=== PATIENT | female | born 1960 | race Caucasian/White ===

== ENCOUNTER 2018-05-18 18:23 | Emergency (ER) | payer BC, SELFPAY ==
[2018-05-18 18:27] VITALS: BP 167/97; PULSE 76; RESP 16; TEMP 36.8; O2SAT 98
--- NOTE | 2018-05-18 19:03 | W.ED.GENAD ---
Discharge Plan Disposition Patient Disposition: HOME Condition: Good Discharge Details Chief Complaint: EarProblem Clinical Impression: Acute serous otitis media, right ear Primary Care Provider: Ryann Thomas ED Provider: Tito Cabrera Home Meds and New Rx's Prescriptions: Continue budesonide-formoterol [Symbicort] 80-4.5 mcg/actuation HFA aerosol inhaler 2 puff Inhalation BID Qty: 3 RF: 11 albuterol sulfate [Ventolin HFA] 90 mcg/actuation HFA aerosol inhaler 2 puff IH Q4H PRN (Reason: shortness of breath or wheezing) Qty: 8.5 RF: 11 inhalational spacing device [Aerochamber MV] spacer .Route .MEDSUPPLY Qty: 1 RF: 0 nitroglycerin 0.4 mg tablet, sublingual 0.4 mg Sublingual PRN Qty: 25 RF: 2 mometasone 50 mcg/actuation spray,non-aerosol 2 spray KUMAR DAILY Qty: 17 RF: 11 acetaminophen [Tylenol] 325 MG tablet 650 mg PO Q4H PRN RF: 0 aspirin 325 MG tablet 325 mg PO DAILY RF: 0 CPAP RF: 0 lancets [OneTouch Delica Lancets] 1 EACH misc 1 ea Intradermal BID Qty: 200 RF: 4 blood sugar diagnostic [OneTouch Ultra Test] 1 EACH strip 1 strip Miscellaneous DAILY Qty: 100 RF: 3 escitalopram oxalate [Lexapro] 20 MG tablet 20 mg PO DAILY Qty: 90 RF: 4 simvastatin 10 MG tablet 10 mg PO DAILY Qty: 90 RF: 4 clopidogrel [Plavix] 75 MG tablet 75 mg PO DAILY Qty: 90 RF: 4 amlodipine 5 MG tablet 5 mg PO DAILY Qty: 90 RF: 4 glimepiride 1 MG tablet 1 mg PO BID Qty: 180 RF: 4 metformin 1,000 MG tablet 1,000 mg PO BID Qty: 180 RF: 4 Metoprolol Succinate 25 MG TAB.ER.24H 25 mg PO DAILY Qty: 90 RF: 4 albuterol sulfate [Proventil HFA] 200 PUFF HFA aerosol inhaler 2 puff Inhalation Q4H PRN PRNQty: 1 RF: 0 losartan [Cozaar] 100 MG tablet 100 mg PO DAILY Qty: 90 RF: 4 lorazepam 0.5 MG tablet 0.5 - 1 tab PO BID PRN Qty: 30 RF: 0 omeprazole 20 mg capsule,delayed release(DR/EC) 20 mg PO DAILY Qty: 90 RF: 0 trazodone 50 mg tablet 50 mg PO HS PRN Qty: 90 RF: 0 Discharge Instructions Instructions: Serous Otitis Media (ED) Additional Instructions: Please continue to use your nasal spray 2 sprays per nostril once daily to see if this helps your symptoms. You may continue to take acetaminophen [id number] as directed on packaging. Please return immediately for any significant worsening of your such as fever chills, significant increase in pain, or any other concerns he may have. Otherwise follow-up with your primary care provider if not improving over the next 1-2 weeks Referrals: Ryann Thomas NP [Primary Care Provider] - (As needed for reassessment in the next 1-2 weeks if not improving) Medical Decision Making Patient presenting the emergency department chief complaint of ear pain. Patient states for the past 3 weeks she has upper respiratory tract infectious type symptoms that are improving but has had ear pain for the entire time. Patient does state that she was seen by her primary care and was told that she did not have an ear infection. Couple days ago patient did state that she did crack 1 of her teeth but has a filling in it and states some mild dental discomfort but is mainly here for the ear pain. Patient denies any worsening cough, fever chills, any neurological symptoms. Physical exam is unremarkable except for partial fracture of tooth #30 and some right bulging TM with clear fluid present behind it but no loss of landmarks, no erythema, no significant purulent effusion. Findings are suggestive of serous otitis media and upon review of previous records that shows that patient was placed upon Flonase which she states she has not used because she thought if she did not have infection that she did not need the use this. Patient was encouraged to begin using Flonase and take other medication as prescribed and to follow-up with primary care provider for reassessment if not improving in the next 1-2 weeks. After discussion of diagnosis and plan of care patient is no further needs, questions, or concerns and states clear understanding to return to the emergency department for any worsening symptoms. HPI General Mode of arrival: ambulatory. Date/Time Provider Initiated Documentation: 05/18/18 18:30. Limitations to Documentation: no limitations. Information obtained by: patient and RN notes reviewed. History of Present Illness described as moderate, Quality is described as aching, and is localized to the right (ear). Patient started experiencing this week(s) (3) and it has been intermittent. No relieving factors improve symptom(s), No exacerbating factors reported . Patient notes no other symptoms.. Patient did receive the following treatments prior to arrival, none Related Data Home Medications Medication Instructions Recorded Confirmed Cpap 10/24/12 05/04/18 acetaminophen [Tylenol] 650 mg PO Q4H PRN tab-cap 10/24/12 05/18/18 aspirin 325 mg PO DAILY tab-cap 10/24/12 05/18/18 lancets [OneTouch Delica Lancets] #200 ea 12/15/12 05/04/18 blood sugar diagnostic [OneTouch #100 strip 01/24/14 05/04/18 Ultra Test] escitalopram oxalate [Lexapro] 20 mg PO DAILY #90 tab-cap 06/23/17 05/18/18 amlodipine 5 mg PO DAILY #90 tab-cap 07/11/17 05/18/18 clopidogrel [Plavix] 75 mg PO DAILY #90 tab 07/11/17 05/18/18 glimepiride 1 mg PO BID #180 tab-cap 07/11/17 05/04/18 metformin 1,000 mg PO BID #180 tab-cap 07/11/17 05/18/18 simvastatin 10 mg PO DAILY #90 tab-cap 07/11/17 05/18/18 albuterol sulfate [Proventil HFA] 2 puff INHALATION Q4H PRN PRN #1 11/27/17 05/18/18 inh losartan [Cozaar] 100 mg PO DAILY #90 tab-cap 12/01/17 05/18/18 lorazepam 0.5 - 1 tab PO BID PRN #30 tab 01/02/18 05/18/18 omeprazole 20 mg capsule,delayed 20 mg PO DAILY #90 tab-cap 04/12/18 05/18/18 release trazodone 50 mg tablet 50 mg PO HS PRN #90 tab-cap 04/12/18 05/18/18 albuterol sulfate HFA 90 2 puff IH Q4H PRN #8.5 gm 05/01/18 05/18/18 mcg/actuation aerosol inhaler budesonide-formoterol HFA 80 2 puff INHALATION BID #3 gm 05/01/18 05/18/18 mcg-4.5 mcg/actuation aerosol inhaler inhalational spacing device #1 each 05/01/18 05/04/18 mometasone 50 mcg/actuation nasal 2 spray KUMAR DAILY #17 gm 05/04/18 05/18/18 spray nitroglycerin 0.4 mg sublingual 0.4 mg SUBLINGUAL PRN #25 tab-cap 05/04/18 05/18/18 tablet Previous Rx's Medication Instructions Recorded escitalopram oxalate [Lexapro] 20 mg PO DAILY #90 tab-cap 06/23/17 amlodipine 5 mg PO DAILY #90 tab-cap 07/11/17 clopidogrel [Plavix] 75 mg PO DAILY #90 tab 07/11/17 glimepiride 1 mg PO BID #180 tab-cap 07/11/17 metformin 1,000 mg PO BID #180 tab-cap 07/11/17 simvastatin 10 mg PO DAILY #90 tab-cap 07/11/17 losartan [Cozaar] 100 mg PO DAILY #90 tab-cap 12/01/17 lorazepam 0.5 - 1 tab PO BID PRN #30 tab 01/02/18 omeprazole 20 mg capsule,delayed 20 mg PO DAILY #90 tab-cap 04/12/18 release trazodone 50 mg tablet 50 mg PO HS PRN #90 tab-cap 04/12/18 albuterol sulfate HFA 90 2 puff IH Q4H PRN #8.5 gm 05/01/18 mcg/actuation aerosol inhaler budesonide-formoterol HFA 80 2 puff INHALATION BID #3 gm 05/01/18 mcg-4.5 mcg/actuation aerosol inhaler inhalational spacing device #1 each 05/01/18 mometasone 50 mcg/actuation nasal 2 spray KUMAR DAILY #17 gm 05/04/18 spray nitroglycerin 0.4 mg sublingual 0.4 mg SUBLINGUAL PRN #25 tab-cap 05/04/18 tablet Allergies Allergy/AdvReac Type Severity Reaction Status Date / Time azithromycin AdvReac Mild Nausea Unverified 05/18/18 18:31 codeine AdvReac Mild Nausea Unverified 05/18/18 18:31 erythromycin base AdvReac Mild Nausea Unverified 05/18/18 18:31 ibuprofen AdvReac Mild Nausea Unverified 05/18/18 18:31 lisinopril AdvReac Mild cough Unverified 05/18/18 18:31 NSAIDS (Non-Steroidal AdvReac Mild Nausea Unverified 05/18/18 18:31 Anti-Inflamma General Stated Complaint: EarProblem MONICA: 4 Review of Systems Constitutional Denies body ache(s), Denies chills and Denies fever(s) ENT Reports as per HPI, Reports dental pain, Denies ear discharge, Reports otalgia and Reports sore throat Cardiovascular Denies chest pain and Denies dyspnea Respiratory Reports cough (mild improving) and Denies dyspnea Gastrointestinal Denies abdominal pain, Denies nausea and Denies vomiting Integumentary/Breasts Denies rash Neurologic Denies confusion and Denies sensory deficit Psychiatric Denies confusion [facility] Family History Mother Personal history of malignant neoplasm Father Heart disease Brother No problems noted. Grandfather No problems noted. Grandfather No problems noted. Grandmother No problems noted. Grandmother No problems noted. Medical History Anxiety Atherosclerotic cardiovascular disease COPD (chronic obstructive pulmonary disease) Depression Diabetes type 2, controlled Heart murmur Hyperlipidemia Hypertension Morbid obesity with BMI of 40.0-44.9, adult Plantar fasciitis of left foot Sleep apnea Stress incontinence in female Social History frequency: 1-2 times per week duration: 15-30 minutes/day Smoking/Tobacco Use Status: Current every day tobacco type: cigarettes alcohol intake: never Surgical History Arthroplasty of knee Cervical Procedure section (~1981) Stent placement Exam Const General: cooperative, comfortable and no acute distress Orientation: alert and awake [facility] Head: normal to inspection, normocephalic and atraumatic Ears: hearing grossly normal bilaterally, TM normal on the left, mastoids normal and TM abnormal bulging on the right and with fluid behind the TM on the right; with no loss of landmarks General nose exam: external nose normal Face and sinus: face symmetric Mouth: oral mucosae normal, no drooling, no muffled voice and no trismus Teeth and gingiva: abnormal tooth or associated gingiva and fair dentition Throat: posterior oropharynx normal Neck Neck: normal visual inspection, full ROM, no lymphadenopathy, no meningeal signs, trachea midline and supple Resp Effort & Inspection: normal respiratory effort, able to speak in complete sentences and cough Quality of cough: dry Auscultation: clear to auscultation bilaterally Skin General skin exam: no rashes or lesions noted and dry skin (warm) Neuro General: alert, awake, oriented x3, gait normal and moves all extremities Cognition: normal cognition Speech: speech normal Course Vital Signs Temperature 36.8 C 05/18/18 18:27 Pulse 76 05/18/18 18:27 Respiratory Rate 16 05/18/18 18:27 Blood Pressure 167/97 H 05/18/18 18:27 Pulse Oximetry 98 05/18/18 18:27 Temperature 36.8 C 05/18/18 18:27 Temperature Source Skin 05/18/18 18:27 Pulse 76 05/18/18 18:27 Respiratory Rate 16 05/18/18 18:27 Respiratory Effort 05/18/18 18:29 Blood Pressure 167/97 H 05/18/18 18:27 Blood Pressure Position Sitting 05/18/18 18:27 Pulse Oximetry 98 05/18/18 18:27 Oxygen Delivery Method Room Air 05/18/18 18:27 Oxygen Flow Rate 0 05/18/18 18:27 Pain Level 7 05/18/18 18:36
--- NOTE | 2018-05-18 19:10 | ED.GENADUL_ITS ---
Discharge Plan Disposition Patient Disposition: HOME Condition: Good Discharge Details Chief Complaint: EarProblem Clinical Impression: Acute serous otitis media, right ear Primary Care Provider: Ryann Thomas ED Provider: Tito Cabrera Home Meds and New Rx's Prescriptions: Continue budesonide-formoterol [Symbicort] 80-4.5 mcg/actuation HFA aerosol inhaler 2 puff Inhalation BID Qty: 3 RF: 11 albuterol sulfate [Ventolin HFA] 90 mcg/actuation HFA aerosol inhaler 2 puff IH Q4H PRN (Reason: shortness of breath or wheezing) Qty: 8.5 RF: 11 inhalational spacing device [Aerochamber MV] spacer .Route .MEDSUPPLY Qty: 1 RF: 0 nitroglycerin 0.4 mg tablet, sublingual 0.4 mg Sublingual PRN Qty: 25 RF: 2 mometasone 50 mcg/actuation spray,non-aerosol 2 spray KUMAR DAILY Qty: 17 RF: 11 acetaminophen [Tylenol] 325 MG tablet 650 mg PO Q4H PRN RF: 0 aspirin 325 MG tablet 325 mg PO DAILY RF: 0 CPAP RF: 0 lancets [OneTouch Delica Lancets] 1 EACH misc 1 ea Intradermal BID Qty: 200 RF: 4 blood sugar diagnostic [OneTouch Ultra Test] 1 EACH strip 1 strip Miscellaneous DAILY Qty: 100 RF: 3 escitalopram oxalate [Lexapro] 20 MG tablet 20 mg PO DAILY Qty: 90 RF: 4 simvastatin 10 MG tablet 10 mg PO DAILY Qty: 90 RF: 4 clopidogrel [Plavix] 75 MG tablet 75 mg PO DAILY Qty: 90 RF: 4 amlodipine 5 MG tablet 5 mg PO DAILY Qty: 90 RF: 4 glimepiride 1 MG tablet 1 mg PO BID Qty: 180 RF: 4 metformin 1,000 MG tablet 1,000 mg PO BID Qty: 180 RF: 4 Metoprolol Succinate 25 MG TAB.ER.24H 25 mg PO DAILY Qty: 90 RF: 4 albuterol sulfate [Proventil HFA] 200 PUFF HFA aerosol inhaler 2 puff Inhalation Q4H PRN PRNQty: 1 RF: 0 losartan [Cozaar] 100 MG tablet 100 mg PO DAILY Qty: 90 RF: 4 lorazepam 0.5 MG tablet 0.5 - 1 tab PO BID PRN Qty: 30 RF: 0 omeprazole 20 mg capsule,delayed release(DR/EC) 20 mg PO DAILY Qty: 90 RF: 0 trazodone 50 mg tablet 50 mg PO HS PRN Qty: 90 RF: 0 Discharge Instructions Instructions: Serous Otitis Media (ED) Additional Instructions: Please continue to use your nasal spray 2 sprays per nostril once daily to see if this helps your symptoms. You may continue to take acetaminophen over-the- counter as directed on packaging. Please return immediately for any significant worsening of your such as fever chills, significant increase in pain , or any other concerns he may have. Otherwise follow-up with your primary care provider if not improving over the next 1-2 weeks Referrals: Ryann Thomas NP [Primary Care Provider] - (As needed for reassessment in the next 1-2 weeks if not improving) Medical Decision Making Patient presenting the emergency department chief complaint of ear pain. Patient states for the past 3 weeks she has upper respiratory tract infectious type symptoms that are improving but has had ear pain for the entire time. Patient does state that she was seen by her primary care and was told that she did not have an ear infection. Couple days ago patient did state that she did crack 1 of her teeth but has a filling in it and states some mild dental discomfort but is mainly here for the ear pain. Patient denies any worsening cough, fever chills, any neurological symptoms. Physical exam is unremarkable except for partial fracture of tooth #30 and some right bulging TM with clear fluid present behind it but no loss of landmarks, no erythema, no significant purulent effusion. Findings are suggestive of serous otitis media and upon review of previous records that shows that patient was placed upon Flonase which she states she has not used because she thought if she did not have infection that she did not need the use this. Patient was encouraged to begin using Flonase and take other medication as prescribed and to follow-up with primary care provider for reassessment if not improving in the next 1-2 weeks. After discussion of diagnosis and plan of care patient is no further needs, questions, or concerns and states clear understanding to return to the emergency department for any worsening symptoms. HPI General Mode of arrival: ambulatory . Date/Time Provider Initiated Documentation: 05/18/18 18:30 . Limitations to Documentation: no limitations . Information obtained by: patient and RN notes reviewed . History of Present Illness described as moderate, Quality is described as aching, and is localized to the right (ear). Patient started experiencing this week(s) (3) and it has been intermittent. No relieving factors improve symptom(s), No exacerbating factors reported . Patient notes no other symptoms.. Patient did receive the following treatments prior to arrival, none Related Data Home Medications Medication Instructions Recorded Confirmed Cpap 10/24/12 05/04/18 acetaminophen [Tylenol] 650 mg PO Q4H PRN tab-cap 10/24/12 05/18/18 aspirin 325 mg PO DAILY tab-cap 10/24/12 05/18/18 lancets [OneTouch Delica Lancets] #200 ea 12/15/12 05/04/18 blood sugar diagnostic [OneTouch #100 strip 01/24/14 05/04/18 Ultra Test] escitalopram oxalate [Lexapro] 20 mg PO DAILY #90 tab-cap 06/23/17 05/18/18 amlodipine 5 mg PO DAILY #90 tab-cap 07/11/17 05/18/18 clopidogrel [Plavix] 75 mg PO DAILY #90 tab 07/11/17 05/18/18 glimepiride 1 mg PO BID #180 tab-cap 07/11/17 05/04/18 metformin 1,000 mg PO BID #180 tab-cap 07/11/17 05/18/18 simvastatin 10 mg PO DAILY #90 tab-cap 07/11/17 05/18/18 albuterol sulfate [Proventil HFA] 2 puff INHALATION Q4H PRN PRN #1 11/27/1703/27 inh losartan [Cozaar] 100 mg PO DAILY #90 tab-cap 12/01/17 05/18/18 lorazepam 0.5 - 1 tab PO BID PRN #30 tab 01/02/18 05/18/18 omeprazole 20 mg capsule,delayed 20 mg PO DAILY #90 tab-cap 04/12/18 05/18/18 release trazodone 50 mg tablet 50 mg PO HS PRN #90 tab-cap 04/12/18 05/18/18 albuterol sulfate HFA 90 2 puff IH Q4H PRN #8.5 gm 05/01/18 05/18/18 mcg/actuation aerosol inhaler budesonide-formoterol HFA 80 2 puff INHALATION BID #3 gm 05/01/18 05/18/18 mcg-4.5 mcg/actuation aerosol inhaler inhalational spacing device #1 each 05/01/18 05/04/18 mometasone 50 mcg/actuation nasal 2 spray KUMAR DAILY #17 gm 05/04/18 05/18/18 spray nitroglycerin 0.4 mg sublingual 0.4 mg SUBLINGUAL PRN #25 tab-cap 05/04/1805/18 tablet Previous Rx's Medication Instructions Recorded escitalopram oxalate [Lexapro] 20 mg PO DAILY #90 tab-cap 06/23/17 amlodipine 5 mg PO DAILY #90 tab-cap 07/11/17 clopidogrel [Plavix] 75 mg PO DAILY #90 tab 07/11/17 glimepiride 1 mg PO BID #180 tab-cap 07/11/17 metformin 1,000 mg PO BID #180 tab-cap 07/11/17 simvastatin 10 mg PO DAILY #90 tab-cap 07/11/17 losartan [Cozaar] 100 mg PO DAILY #90 tab-cap 12/01/17 lorazepam 0.5 - 1 tab PO BID PRN #30 tab 01/02/18 omeprazole 20 mg capsule,delayed 20 mg PO DAILY #90 tab-cap 04/12/18 release trazodone 50 mg tablet 50 mg PO HS PRN #90 tab-cap 04/12/18 albuterol sulfate HFA 90 2 puff IH Q4H PRN #8.5 gm 05/01/18 mcg/actuation aerosol inhaler budesonide-formoterol HFA 80 2 puff INHALATION BID #3 gm 05/01/18 mcg-4.5 mcg/actuation aerosol inhaler inhalational spacing device #1 each 05/01/18 mometasone 50 mcg/actuation nasal 2 spray KUMAR DAILY #17 gm 05/04/18 spray nitroglycerin 0.4 mg sublingual 0.4 mg SUBLINGUAL PRN #25 tab-cap 05/04/18 tablet Allergies Allergy/AdvReac Type Severity Reaction Status Date / Time azithromycin AdvReac Mild Nausea Unverified 05/18/18 18:31 codeine AdvReac Mild Nausea Unverified 05/18/18 18:31 erythromycin base AdvReac Mild Nausea Unverified 05/18/18 18:31 ibuprofen AdvReac Mild Nausea Unverified 05/18/18 18:31 lisinopril AdvReac Mild cough Unverified 05/18/18 18:31 NSAIDS (Non-Steroidal AdvReac Mild Nausea Unverified 05/18/18 18:31 Anti-Inflamma General Stated Complaint: EarProblem MONICA: 4 Review of Systems Constitutional Denies body ache(s), Denies chills and Denies fever(s) ENT Reports as per HPI, Reports dental pain, Denies ear discharge, Reports otalgia and Reports sore throat Cardiovascular Denies chest pain and Denies dyspnea Respiratory Reports cough (mild improving) and Denies dyspnea Gastrointestinal Denies abdominal pain, Denies nausea and Denies vomiting Integumentary/Breasts Denies rash Neurologic Denies confusion and Denies sensory deficit Psychiatric Denies confusion [facility] Family History Mother Personal history of malignant neoplasm Father Heart disease Brother No problems noted. Grandfather No problems noted. Grandfather No problems noted. Grandmother No problems noted. Grandmother No problems noted. Medical History Anxiety Atherosclerotic cardiovascular disease COPD (chronic obstructive pulmonary disease) Depression Diabetes type 2, controlled Heart murmur Hyperlipidemia Hypertension Morbid obesity with BMI of 40.0-44.9, adult Plantar fasciitis of left foot Sleep apnea Stress incontinence in female Social History frequency: 1-2 times per week duration: 15-30 minutes/day Smoking/Tobacco Use Status: Current every day tobacco type: cigarettes alcohol intake: never Surgical History Arthroplasty of knee Cervical Procedure section (~1981) Stent placement Exam Const General: cooperative, comfortable and no acute distress Orientation: alert and awake [facility] Head: normal to inspection, normocephalic and atraumatic Ears: hearing grossly normal bilaterally, TM normal on the left, mastoids normal and TM abnormal bulging on the right and with fluid behind the TM on the right; with no loss of landmarks General nose exam: external nose normal Face and sinus: face symmetric Mouth: oral mucosae normal, no drooling, no muffled voice and no trismus Teeth and gingiva: abnormal tooth or associated gingiva and fair dentition Throat: posterior oropharynx normal Neck Neck: normal visual inspection, full ROM, no lymphadenopathy, no meningeal signs , trachea midline and supple Resp Effort & Inspection: normal respiratory effort, able to speak in complete sentences and cough Quality of cough: dry Auscultation: clear to auscultation bilaterally Skin General skin exam: no rashes or lesions noted and dry skin (warm) Neuro General: alert, awake, oriented x3, gait normal and moves all extremities Cognition: normal cognition Speech: speech normal Course Vital Signs Temperature 36.8 C 05/18/18 18:27 Pulse 76 05/18/18 18:27 Respiratory Rate 16 05/18/18 18:27 Blood Pressure 167/97 H 05/18/18 18:27 Pulse Oximetry 98 05/18/18 18:27 Temperature 36.8 C 05/18/18 18:27 Temperature Source Skin 05/18/18 18:27 Pulse 76 05/18/18 18:27 Respiratory Rate 16 05/18/18 18:27 Respiratory Effort 05/18/18 18:29 Blood Pressure 167/97 H 05/18/18 18:27 Blood Pressure Position Sitting 05/18/18 18:27 Pulse Oximetry 98 05/18/18 18:27 Oxygen Delivery Method Room Air 05/18/18 18:27 Oxygen Flow Rate 0 05/18/18 18:27 Pain Level 7 05/18/18 18:36
== END 2018-05-18 19:19 | disposition home or self-care (01) ==
PROVIDERS: Emergency Provider Nurse Practitioner Family
DX: H65.01 Acute serous otitis media, right ear (principal)
CPT/HCPCS: 99282

== ENCOUNTER 2019-01-21 15:30 | Emergency (ER) | payer BC, SELFPAY ==
--- NOTE | 2019-01-21 15:38 | NUR.NOTE ---
Nursing Note: pt states that she has had continuous diarrhea for the past 5 days as well as nonproductive. BMs 10-20 a day
[2019-01-21 15:40] VITALS: BP 143/66; PULSE 87; RESP 17; TEMP 36.6; O2SAT 92
--- NOTE | 2019-01-21 16:16 | W.ED.GENAD ---
Discharge Plan Discharge Details Chief Complaint: Nausea/Vomit/Diar Primary Care Provider: Ryann Thomas ED Provider: Ernesto Gallegos [place] Meds and New Rx's Prescriptions: No Action lorazepam 0.5 mg tablet 0.25 - 0.5 mg PO BID PRN Qty: 30 RF: 0 trazodone 50 mg tablet 50 mg PO HS PRN Qty: 30 RF: 0 Symbicort 80-4.5 mcg/actuation HFA aerosol inhaler 2 puff Inhalation BID Qty: 3 RF: 11 albuterol sulfate [Ventolin HFA] 90 mcg/actuation HFA aerosol inhaler 2 puff IH Q4H PRN (Reason: shortness of breath or wheezing) Qty: 8.5 RF: 11 (DME) Aerochamber MV spacer See Dose Instructions .Route .MEDSUPPLY Qty: 1 RF: 0 nitroglycerin 0.4 mg tablet, sublingual 0.4 mg Sublingual PRN Qty: 25 RF: 2 mometasone 50 mcg/actuation spray,non-aerosol 2 spray KUMAR DAILY Qty: 17 RF: 11 acetaminophen [Tylenol] 325 MG tablet 650 mg PO Q4H PRN RF: 0 aspirin 325 MG tablet 325 mg PO DAILY RF: 0 CPAP RF: 0 (DME) lancets [OneTouch Delica Lancets] 1 EACH misc 1 ea Intradermal BID Qty: 200 RF: 4 (DME) OneTouch Ultra Test 1 EACH strip 1 strip Miscellaneous DAILY Qty: 100 RF: 3 amlodipine 5 mg tablet 5 mg PO DAILY Qty: 90 RF: 4 clopidogrel [Plavix] 75 mg tablet 75 mg PO DAILY Qty: 90 RF: 4 escitalopram oxalate [Lexapro] 20 mg tablet 20 mg PO DAILY Qty: 90 RF: 4 glimepiride 1 mg tablet 1 mg PO BID Qty: 180 RF: 4 omeprazole 20 mg capsule,delayed release(DR/EC) 20 mg PO DAILY Qty: 90 RF: 3 metformin 1,000 mg tablet 1,000 mg PO BID Qty: 180 RF: 4 Metoprolol Succinate 25 MG TAB.ER.24H 25 mg PO DAILY Qty: 90 RF: 4 simvastatin 10 mg tablet 10 mg PO DAILY Qty: 90 RF: 4 losartan [Cozaar] 100 mg tablet 100 mg PO DAILY Qty: 90 RF: 4 HPI General Date/Time Provider Initiated Documentation: 01/21/19 15:45. Related Data Home Medications Medication Instructions Recorded Confirmed Cpap 10/24/12 01/21/19 acetaminophen [Tylenol] 650 mg PO Q4H PRN tab-cap 10/24/12 01/21/19 aspirin 325 mg PO DAILY tab-cap 10/24/12 01/21/19 lancets [OneTouch Delica Lancets] #200 ea 12/15/12 01/21/19 OneTouch Ultra Test #100 strip 01/24/14 01/21/19 albuterol sulfate 90 mcg/actuation 2 puff IH Q4H PRN #8.5 gm 05/01/18 01/21/19 aerosol inhaler budesonide-formoterol HFA 80 2 puff INHALATION BID #3 gm 05/01/18 01/21/19 mcg-4.5 mcg/actuation aerosol inhaler inhalational spacing device #1 each 05/01/18 01/21/19 mometasone 50 mcg/actuation nasal 2 spray KUMAR DAILY #17 gm 05/04/18 01/21/19 spray nitroglycerin 0.4 mg sublingual 0.4 mg SUBLINGUAL PRN #25 tab-cap 05/04/18 01/21/19 tablet amlodipine 5 mg tablet 5 mg PO DAILY #90 tab-cap 07/27/18 01/21/19 clopidogrel 75 mg tablet 75 mg PO DAILY #90 tab 07/27/18 01/21/19 escitalopram oxalate 20 mg tablet 20 mg PO DAILY #90 tab-cap 07/27/18 01/21/19 glimepiride 1 mg PO BID #180 tab-cap 07/31/18 01/21/19 metformin 1,000 mg PO BID #180 tab-cap 07/31/18 01/21/19 omeprazole 20 mg capsule,delayed 20 mg PO DAILY #90 tab-cap 07/31/18 01/21/19 release simvastatin 10 mg PO DAILY #90 tab-cap 07/31/18 01/21/19 losartan 100 mg tablet 100 mg PO DAILY #90 tab-cap 12/27/18 01/21/19 lorazepam 0.5 mg tablet 0.25 - 0.5 mg PO BID PRN #30 tab 01/07/19 01/21/19 trazodone 50 mg tablet 50 mg PO HS PRN #30 tab-cap 01/07/19 01/21/19 Previous Rx's Medication Instructions Recorded albuterol sulfate 90 mcg/actuation 2 puff IH Q4H PRN #8.5 gm 05/01/18 aerosol inhaler budesonide-formoterol HFA 80 2 puff INHALATION BID #3 gm 05/01/18 mcg-4.5 mcg/actuation aerosol inhaler inhalational spacing device #1 each 05/01/18 mometasone 50 mcg/actuation nasal 2 spray KUMAR DAILY #17 gm 05/04/18 spray nitroglycerin 0.4 mg sublingual 0.4 mg SUBLINGUAL PRN #25 tab-cap 05/04/18 tablet amlodipine 5 mg tablet 5 mg PO DAILY #90 tab-cap 07/27/18 clopidogrel 75 mg tablet 75 mg PO DAILY #90 tab 07/27/18 escitalopram oxalate 20 mg tablet 20 mg PO DAILY #90 tab-cap 07/27/18 glimepiride 1 mg PO BID #180 tab-cap 07/31/18 metformin 1,000 mg PO BID #180 tab-cap 07/31/18 omeprazole 20 mg capsule,delayed 20 mg PO DAILY #90 tab-cap 07/31/18 release simvastatin 10 mg PO DAILY #90 tab-cap 07/31/18 losartan 100 mg tablet 100 mg PO DAILY #90 tab-cap 12/27/18 lorazepam 0.5 mg tablet 0.25 - 0.5 mg PO BID PRN #30 tab 01/07/19 trazodone 50 mg tablet 50 mg PO HS PRN #30 tab-cap 01/07/19 Allergies Allergy/AdvReac Type Severity Reaction Status Date / Time azithromycin AdvReac Mild Nausea Unverified 01/21/19 15:42 codeine AdvReac Mild Nausea Unverified 01/21/19 15:42 erythromycin base AdvReac Mild Nausea Unverified 01/21/19 15:42 ibuprofen AdvReac Mild Nausea Unverified 01/21/19 15:42 lisinopril AdvReac Mild cough Unverified 01/21/19 15:42 NSAIDS (Non-Steroidal AdvReac Mild Nausea Unverified 01/21/19 15:42 Anti-Inflamma General Stated Complaint: Nausea/Vomit/Diar MONICA: 3 PFSH Social History (Updated 01/08/19 @ 13:59 by Bon Hanna) Smoking/Tobacco Use Status: Current every day Tobacco Type: cigarettes Alcohol Intake: current Alcohol Intake frequency: holidays/special occasions only Alcohol type: beer and hard liquor Drug use: Occasionally Substance use type: marijuana Household members: significant other Housing: house Communication Needs: None Do you need help understanding health information?: Rarely Pets and animals: Yes Pets and animals: dog(s) Do you think of yourself as: straight/heterosexual Current gender identity: female What is your relationship status?: living with partner How often do you talk on the phone with friends or family?: three or more times per week How often do you get together with friends or relatives?: decline to answer How often do you attend latter day or hoahaoism services?: decline to answer Do you belong to any clubs or organized social groups?: no Panel score (0-1 are the most socially isolated patients): 2 What type of physical activity do you participate in: none Duration: < 15 minutes/day Frequency: daily Katerina/Latter Day: none Special katerina needs: No Seatbelt use: sometimes Helmet use: Yes Helmet use: always 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 Do you feel safe at home: Yes Do you feel safe in your relationship?: Yes Course Vital Signs Temperature 36.6 C 01/21/19 15:40 Pulse 87 01/21/19 15:40 Respiratory Rate 17 01/21/19 15:40 Blood Pressure 143/66 H 01/21/19 15:40 Pulse Oximetry 92 L 01/21/19 15:40 Temperature 36.6 C 01/21/19 15:40 Temperature Source Skin 01/21/19 15:40 Pulse 87 01/21/19 15:40 Respiratory Rate 17 01/21/19 15:40 Respiratory Effort 01/21/19 15:42 Blood Pressure 143/66 H 01/21/19 15:40 Blood Pressure Position Supine 01/21/19 15:40 Pulse Oximetry 92 L 01/21/19 15:40 Oxygen Delivery Method Room Air 01/21/19 15:40 Oxygen Flow Rate 0 01/21/19 15:40 Pain Level 2 01/21/19 15:40
--- NOTE | 2019-01-21 16:22 | ED.GENADUL_ITS ---
Discharge Plan Disposition Patient Disposition: HOME Condition: Good Discharge Details Chief Complaint: Nausea/Vomit/Diar Clinical Impression: Asthma exacerbation, Nausea vomiting and diarrhea Primary Care Provider: Ryann Thomas ED Provider: Ernesto Gallegos [place] Meds and New Rx's Prescriptions: New benzonatate 100 mg capsule 100 mg PO BID PRN (Reason: cough) 5 Days Qty: 10 RF: 0 ondansetron 4 mg tablet,disintegrating 4 mg PO BID PRN (Reason: nausea and vomiting) 2 Days RF: 0 Continued lorazepam 0.5 mg tablet 0.25 - 0.5 mg PO BID PRN Qty: 30 RF: 0 trazodone 50 mg tablet 50 mg PO HS PRN Qty: 30 RF: 0 Symbicort 80-4.5 mcg/actuation HFA aerosol inhaler 2 puff Inhalation BID Qty: 3 RF: 11 albuterol sulfate [Ventolin HFA] 90 mcg/actuation HFA aerosol inhaler 2 puff IH Q4H PRN (Reason: shortness of breath or wheezing) Qty: 8.5 RF: 11 (DME) Aerochamber MV spacer See Dose Instructions .Route .MEDSUPPLY Qty: 1 RF: 0 nitroglycerin 0.4 mg tablet, sublingual 0.4 mg Sublingual PRN Qty: 25 RF: 2 mometasone 50 mcg/actuation spray,non-aerosol 2 spray KUMAR DAILY Qty: 17 RF: 11 acetaminophen [Tylenol] 325 MG tablet 650 mg PO Q4H PRN RF: 0 aspirin 325 MG tablet 325 mg PO DAILY RF: 0 CPAP RF: 0 (DME) lancets [OneTouch Delica Lancets] 1 EACH misc 1 ea Intradermal BID Qty: 200 RF: 4 (DME) OneTouch Ultra Test 1 EACH strip 1 strip Miscellaneous DAILY Qty: 100 RF: 3 amlodipine 5 mg tablet 5 mg PO DAILY Qty: 90 RF: 4 clopidogrel [Plavix] 75 mg tablet 75 mg PO DAILY Qty: 90 RF: 4 escitalopram oxalate [Lexapro] 20 mg tablet 20 mg PO DAILY Qty: 90 RF: 4 glimepiride 1 mg tablet 1 mg PO BID Qty: 180 RF: 4 omeprazole 20 mg capsule,delayed release(DR/EC) 20 mg PO DAILY Qty: 90 RF: 3 metformin 1,000 mg tablet 1,000 mg PO BID Qty: 180 RF: 4 Metoprolol Succinate 25 MG TAB.ER.24H 25 mg PO DAILY Qty: 90 RF: 4 simvastatin 10 mg tablet 10 mg PO DAILY Qty: 90 RF: 4 losartan [Cozaar] 100 mg tablet 100 mg PO DAILY Qty: 90 RF: 4 Discharge Instructions Instructions: Asthma (ED), Acute Nausea and Vomiting (ED) Additional Instructions: Take your home albuterol and Symbicort as prescribed. Continue to drink plenty of fluids. Follow-up with your primary care provider in 2 to 3 days if symptoms are not resolving, return to the emergency department if symptoms worsen in the interim. Medical Decision Making Patient is feeling better after first liter of saline and Zofran however she now reports she has a cough. She does occasionally exhibit a dry cough. On repeat auscultation, she does have wheezing present. She denies dyspnea. She does have Symbicort and albuterol at home which she states she has not been using. Decision made to give DuoNeb, Decadron, and an additional liter of saline while she is waiting. No evidence of anaplasmosis as the culprit for her nausea and fever paced on CBC, chemistry, and absence of known tick bite however I have sent a panel given the current prevalence at this location. For now, we will treat as viral gastroenteritis. We will also treat as asthma exacerbation. Chest x-ray without evidence of pneumonia, note made of pulmonary vascular congestion mild. I informed patient of chest x-ray findings and need for follow-up. ALIZA Herrmann presents to the emergency department for nausea, vomiting, diarrhea, ongoing for the past 5 days. She saw her PCP today and had a temp of 100 and was referred to the emergency department for IV and x-rays.She is able to eat and drink, last vomiting episode was 3 days ago. She states when she eats or drinks anything it runs right through her. She denies any abdominal pain. No bloody stools. No history of inflammatory bowel disease which she is aware of. No history of abdominal surgeries. She denies chest pain, dyspnea, lethargy, no history of antibiotics in the past 3 months possibly longer. General Date/Time Provider Initiated Documentation: 01/21/19 15:45 . Related Data Home Medications Medication Instructions Recorded Confirmed Cpap 10/24/12 01/21/19 acetaminophen [Tylenol] 650 mg PO Q4H PRN tab-cap 10/24/12 01/21/19 aspirin 325 mg PO DAILY tab-cap 10/24/12 01/21/19 lancets [OneTouch Delica Lancets] #200 ea 12/15/12 01/21/19 OneTouch Ultra Test #100 strip 01/24/14 01/21/19 albuterol sulfate 90 mcg/actuation 2 puff IH Q4H PRN #8.5 gm 05/01/18 01/21/19 aerosol inhaler budesonide-formoterol HFA 80 2 puff INHALATION BID #3 gm 05/01/18 01/21/19 mcg-4.5 mcg/actuation aerosol inhaler inhalational spacing device #1 each 05/01/18 01/21/19 mometasone 50 mcg/actuation nasal 2 spray KUMAR DAILY #17 gm 05/04/18 01/21/19 spray nitroglycerin 0.4 mg sublingual 0.4 mg SUBLINGUAL PRN #25 tab-cap 05/04/18 01/21/19 tablet amlodipine 5 mg tablet 5 mg PO DAILY #90 tab-cap 07/27/18 01/21/19 clopidogrel 75 mg tablet 75 mg PO DAILY #90 tab 07/27/18 01/21/19 escitalopram oxalate 20 mg tablet 20 mg PO DAILY #90 tab-cap 07/27/18 01/21/19 glimepiride 1 mg PO BID #180 tab-cap 07/31/18 01/21/19 metformin 1,000 mg PO BID #180 tab-cap 07/31/18 01/21/19 omeprazole 20 mg capsule,delayed 20 mg PO DAILY #90 tab-cap 07/31/18 01/21/19 release simvastatin 10 mg PO DAILY #90 tab-cap 07/31/18 01/21/19 losartan 100 mg tablet 100 mg PO DAILY #90 tab-cap 12/27/18 01/21/19 lorazepam 0.5 mg tablet 0.25 - 0.5 mg PO BID PRN #30 tab 01/07/19 01/21/19 trazodone 50 mg tablet 50 mg PO HS PRN #30 tab-cap 01/07/19 01/21/19 benzonatate 100 mg PO BID PRN 5 Days #10 cap 07/15/19 ondansetron 4 mg PO BID PRN 2 Days tab 01/21/19 Previous Rx's Medication Instructions Recorded albuterol sulfate 90 mcg/actuation 2 puff IH Q4H PRN #8.5 gm 05/01/18 aerosol inhaler budesonide-formoterol HFA 80 2 puff INHALATION BID #3 gm 05/01/18 mcg-4.5 mcg/actuation aerosol inhaler inhalational spacing device #1 each 05/01/18 mometasone 50 mcg/actuation nasal 2 spray KUMAR DAILY #17 gm 05/04/18 spray nitroglycerin 0.4 mg sublingual 0.4 mg SUBLINGUAL PRN #25 tab-cap 05/04/18 tablet amlodipine 5 mg tablet 5 mg PO DAILY #90 tab-cap 07/27/18 clopidogrel 75 mg tablet 75 mg PO DAILY #90 tab 07/27/18 escitalopram oxalate 20 mg tablet 20 mg PO DAILY #90 tab-cap 07/27/18 glimepiride 1 mg PO BID #180 tab-cap 07/31/18 metformin 1,000 mg PO BID #180 tab-cap 07/31/18 omeprazole 20 mg capsule,delayed 20 mg PO DAILY #90 tab-cap 07/31/18 release simvastatin 10 mg PO DAILY #90 tab-cap 07/31/18 losartan 100 mg tablet 100 mg PO DAILY #90 tab-cap 12/27/18 lorazepam 0.5 mg tablet 0.25 - 0.5 mg PO BID PRN #30 tab 01/07/19 trazodone 50 mg tablet 50 mg PO HS PRN #30 tab-cap 01/07/19 benzonatate 100 mg PO BID PRN 5 Days #10 cap 01/21/19 ondansetron 4 mg PO BID PRN 2 Days tab 01/21/19 Allergies Allergy/AdvReac Type Severity Reaction Status Date / Time azithromycin AdvReac Mild Nausea Unverified 01/21/19 15:42 codeine AdvReac Mild Nausea Unverified 01/21/19 15:42 erythromycin base AdvReac Mild Nausea Unverified 01/21/19 15:42 ibuprofen AdvReac Mild Nausea Unverified 01/21/19 15:42 lisinopril AdvReac Mild cough Unverified 07/15/19 15:42 NSAIDS (Non-Steroidal AdvReac Mild Nausea Unverified 01/21/19 15:42 Anti-Inflamma General Stated Complaint: Nausea/Vomit/Diar MONICA: 3 Review of Systems Constitutional Denies chills, Denies fatigue, Denies fever(s) and Denies lethargy Eyes Denies loss of vision ENT Denies nasal congestion and Denies sore throat Cardiovascular Denies chest pain and Denies dyspnea Respiratory Denies dyspnea Gastrointestinal Denies abdominal pain Musculoskeletal Denies back pain, Denies muscle weakness and Denies numbness Integumentary/Breasts Denies rash Neurologic Denies focal weakness, Denies loss of vision and Denies numbness Endocrine Denies fatigue Hematologic/Lymphatic Denies easy bruising PFS Social History (Updated 01/08/19 @ 13:59 by Bon Hanna) Smoking/Tobacco Use Status: Current every day Tobacco Type: cigarettes Alcohol Intake: current Alcohol Intake frequency: holidays/special occasions only Alcohol type: beer and hard liquor Drug use: Occasionally Substance use type: marijuana Household members: significant other Housing: house Communication Needs: None Do you need help understanding health information?: Rarely Pets and animals: Yes Pets and animals: dog(s) Do you think of yourself as: straight/heterosexual Current gender identity: female What is your relationship status?: living with partner How often do you talk on the phone with friends or family?: three or more times per week How often do you get together with friends or relatives?: decline to answer How often do you attend christianity or spiritism services?: decline to answer Do you belong to any clubs or organized social groups?: no Panel score (0-1 are the most socially isolated patients): 2 What type of physical activity do you participate in: none Duration: < 15 minutes/day Frequency: daily Katerina/Orthodoxy: none Special katerina needs: No Seatbelt use: sometimes Helmet use: Yes Helmet use: always 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 Do you feel safe at home: Yes Do you feel safe in your relationship?: Yes Exam Const General: cooperative, healthy appearing and no acute distress HENMT Head: normal to inspection Ears: hearing grossly normal bilaterally Eyes EOM: EOM intact bilaterally Neck Neck: normal visual inspection Resp Effort & Inspection: normal respiratory effort Auscultation: clear to auscultation bilaterally Cardio Rate: regular rate Rhythm: regular rhythm Heart Sounds: no murmurs GI Palpation: soft and nontender Skin General skin exam: no rashes or lesions noted Neuro General: alert, awake and oriented x3 Speech: speech normal Gait: normal gait Extrem General: normal to inspection Course Vital Signs Temperature 36.6 C 01/21/19 15:40 Pulse 87 01/21/19 15:40 Respiratory Rate 17 01/21/19 15:40 Blood Pressure 143/66 H 01/21/19 15:40 Pulse Oximetry 92 L 01/21/19 15:40 Temperature 36.6 C 01/21/19 15:40 Temperature Source Skin 01/21/19 15:40 Pulse 87 01/21/19 15:40 Respiratory Rate 17 01/21/19 15:40 Respiratory Effort 01/21/19 15:42 Blood Pressure 143/66 H 01/21/19 15:40 Blood Pressure Position Supine 01/21/19 15:40 Pulse Oximetry 92 L 01/21/19 15:40 Oxygen Delivery Method Room Air 01/21/19 15:40 Oxygen Flow Rate 0 01/21/19 15:40 Pain Level 2 01/21/19 15:40
[2019-01-21] MEDS: Normal Saline 1,000 ML 1000 ML IV (16:29)
[2019-01-21] MEDS: Ondansetron 4 MG/2 ML VIAL IVP (16:30)
[2019-01-21 16:40] LABS: ALT 64 U/L (12-78); AST 46 U/L (15-37); Albumin 3.7 g/dL (3.4-5.0); Alkaline Phosphatase 79 U/L (46-116); Anion Gap 7.4 mmol/L (3-11); BUN 10 mg/dL (7-18); Bilirubin, Total 0.6 mg/dL (0.2-1.0); CO2 28.6 mmol/L (21.0-32.0); CREATININE 0.85 mg/dL (0.55-1.02); Calcium 9.1 mg/dL (8.5-10.1); Chloride 99 mmol/L (98-107); Glucose 154 mg/dL (70-100); Magnesium 1.9 mg/dL (1.8-2.4); Potassium 4.2 mmol/L (3.5-5.1); Sodium 135 mmol/L (136-145); Total Protein 7.4 g/dL (6.4-8.2)
[2019-01-21 16:41] LABS: Abs Immature Grans 0.01 k/cumm (0.0-0.09); Absolute Basophil Count 0.02 k/cumm (0.0-0.2); Absolute Eosinophil Count 0.02 k/cumm (0.0-0.7); Absolute Lymphocyte Count 0.68 k/cumm (1.2-3.4); Absolute Neutrophil Count 8.18 k/cumm (1.2-6.7); Basophils % 0.2; Eosinophils % 0.2; HCT 40.4 % (36.0-46.0); HGB 13.7 g/dL (12.0-15.5); Immature Grans % 0.1; Lymphocytes % 6.8; Mean Corp. HGB Concentration 33.9 g/dL (32.0-36.0); Mean Corpuscular Hemoglobin 29.9 pg (27.0-33.0); Mean Corpuscular Volume 88.2 fL (80-95); Mean Platelet Volume 9.9 fL (8.0-11.0); Neutrophils % 81.7; Platelet Count 289 x1000/uL (130-400); RBC 4.58 m/cumm (4.00-5.20); RBC Distribution Width 14.5 % (11.7-14.6); White Blood Cell Count 10.01 k/cumm (4.4-10.8)
[2019-01-21] MEDS: Albuterol/Ipratropium 3 ML UPD VIAL (17:58)
[2019-01-21] MEDS: Dexamethasone 10 MG/ML VIAL (17:59)
--- NOTE | 2019-01-21 18:57 | DI.RAD_ITS ---
SYMPTOM/DIAGNOSIS: COUGH, FEVER, LOW O2 SAT FRONTAL AND LATERAL CHEST: Comparison is made with 10/06/17. Heart size is within normal limits. There is mild prominence of the pulmonary vasculature, particularly on the right compared to the last examination. This may represent poor inspiration and vascular crowding. Mild pulmonary venous congestion cannot be excluded. No focal consolidating infiltrates, effusions or pneumothoraces are identified. IMPRESSION: 1. No focal consolidating infiltrates to suggest pneumonia. 2. Mild prominence of the pulmonary vasculature compared to the prior examination. This may be due to poor inspiration and vascular overcrowding. Mild pulmonary venous congestion cannot be excluded.
--- NOTE | 2019-01-21 19:37 | DI.VRAD_ITS ---
EXAM: XR Chest, 2 Views EXAM DATE/TIME: 01/21/2019 19:00 CLINICAL HISTORY: 58 years old, female; Cough and fever and other: Low o2; Patient HX: Cough, low o2, fevers; Additional info: Per PT: Unable to keep much down the last few days TECHNIQUE: Imaging protocol: XR of the chest, 2 views. COMPARISON: CR CHEST 2 VIEWS PA,LAT 10/06/2017 19:11 FINDINGS: Lungs: No airspace consolidation. Pleural space: No pleural effusion. No pneumothorax. Heart/Mediastinum: No cardiomegaly. Tortuous descending aorta. Vasculature: Mild vascular congestion may relate to mild vascular crowding. Bones/joints: No acute fracture. IMPRESSION: Mild vascular congestion may relate to mild vascular crowding. More pronounced than on the previous study. Alternatively consider mild volume overload or pulmonary venous hypertension. Dictated and Authenticated by: Doris Posadas MD. Ordering:DEREJE Orozco MD
[2019-01-21 20:35] VITALS: BP 143/66; PULSE 87; RESP 17; O2SAT 92
[2019-01-23 11:13] LABS: Lyme Ab w Rflx to Lyme Confirm Negative
[2019-01-24 00:53] LABS: Anaplasma phagocytophilum Negative (Negative); B. miyamotoi PCR Negative (Negative); Babesia divergens/MO-1 Negative (Negative); Babesia duncani Negative (Negative); Babesia microti Negative (Negative); Ehrlichia chaffeensis Negative (Negative); Ehrlichia ewingii/canis Negative (Negative); Ehrlichia muris eauclairensis Negative (Negative)
== END 2019-01-21 19:59 | disposition home or self-care (01) ==
PROVIDERS: Emergency Provider Physician Assistant Medical
DX: J45.901 Unspecified asthma with (acute) exacerbation (principal); R11.2 Nausea with vomiting, unspecified; R19.7 Diarrhea, unspecified
CPT/HCPCS: 36415; 80053; 87798; 94640; 96361; 96374; 99284; 71046; 83735; 85025; 86618; J1100; J2405; J7620

== ENCOUNTER 2019-05-01 01:01 | Outpatient (CLI) | payer BC, SELFPAY ==
[2019-05-02 15:51] LABS: Aldolase 5.5 U/L (<7.7)
[2019-05-03 11:42] LABS: Metanephrine, Free <0.20 nmol/L (<0.50); Normetanephrine, Free 0.46 nmol/L (<0.90)
[2019-05-03 14:40] LABS: Renin Activity, Plasma 2.2 ng/mL/h
== END 2019-05-01 01:21 ==
PROVIDERS: Visit Provider Urology
DX: E27.8 Other specified disorders of adrenal gland (principal)
CPT/HCPCS: 36415; 80053; 80061; 82533; 82085; 83036; 83835; 84244; 84443

== ENCOUNTER 2019-09-12 12:05 | Emergency (ER) | payer MEDICAID, SELFPAY ==
[2019-09-12 12:13] VITALS: BP 130/87; PULSE 66; RESP 18; TEMP 36.6; O2SAT 97
--- NOTE | 2019-09-12 12:45 | DI.RAD_ITS ---
EXAM: XR WRIST RT COMPL NAVICULAR CLINICAL HISTORY: pain. TECHNIQUE: 2D digital imaging was performed. COMPARISON: No exams were available for comparison FINDINGS: BONES: No acute fracture is present. No bony destructive lesion is seen. JOINTS: The carpal bones are normally aligned. Mild degenerative changes are present. SOFT TISSUE: Normal. IMPRESSION: No acute abnormality. DATA REPOSITORY: RADIATION DOSE DELIVERED:
--- NOTE | 2019-09-12 12:45 | DI.RAD_ITS ---
EXAM: XR HAND RT COMPLETE CLINICAL HISTORY: pain. TECHNIQUE: 2D digital imaging was performed. COMPARISON: No exams were available for comparison FINDINGS: BONES: No acute fracture is present. No bony destructive lesion is seen. JOINTS: No dislocation present. Mild degenerative changes are present in the hand. SOFT TISSUE: Normal. IMPRESSION: No acute abnormality. DATA REPOSITORY: RADIATION DOSE DELIVERED:
[2019-09-12 14:28] VITALS: BP 99/62; PULSE 78; RESP 18; TEMP 37; O2SAT 98
[2019-09-12 15:19] VITALS: BP 130/86; PULSE 60; RESP 16; TEMP 36.5; O2SAT 96
--- NOTE | 2019-09-14 14:00 | W.ED.GENAD ---
Discharge Plan Disposition Patient Disposition: HOME Condition: Stable Discharge Details Chief Complaint: Orthopedic Clinical Impression: Arthritis, Tendinitis Primary Care Provider: Luis E Narayan ED Provider: Shelby Waters Home Meds and New Rx's Prescriptions: Continued trazodone 50 mg tablet 50 mg PO HS PRN Qty: 30 RF: 0 budesonide-formoterol [Symbicort] 80-4.5 mcg/actuation HFA aerosol inhaler 2 puff Inhalation BID Qty: 3 RF: 11 (DME) Aerochamber MV spacer See Dose Instructions .Route .MEDSUPPLY Qty: 1 RF: 0 nicotine 14 mg/24 hr patch 24 hour 1 patch TD DAILY Qty: 21 RF: 2 nystatin 100,000 unit/mL suspension 500,000 unit PO QID Qty: 250 RF: 0 mometasone 50 mcg/actuation spray,non-aerosol 2 spray KUMAR DAILY Qty: 17 RF: 11 fluticasone propionate [Flonase Allergy Relief] 50 mcg/actuation spray,suspension 1 spray KUMAR BID PRN (Reason: nasal congestion) Qty: 9.9 RF: 3 loratadine [Claritin] 10 mg tablet 10 mg PO DAILY RF: 0 lorazepam 1 mg tablet 0.5 - 1 mg PO BID PRN (Reason: anxiety) Qty: 30 RF: 0 nitroglycerin 0.4 mg tablet, sublingual 0.4 mg Sublingual PRN Qty: 25 RF: 2 acetaminophen [Tylenol] 325 MG tablet 650 mg PO Q4H PRN RF: 0 CPAP RF: 0 (DME) lancets [OneTouch Delica Lancets] 1 EACH misc 1 ea Intradermal BID Qty: 200 RF: 4 (DME) OneTouch Ultra Test 1 EACH strip 1 strip Miscellaneous DAILY Qty: 100 RF: 3 amlodipine 5 mg tablet 5 mg PO DAILY Qty: 90 RF: 4 clopidogrel [Plavix] 75 mg tablet 75 mg PO DAILY Qty: 90 RF: 4 omeprazole 20 mg capsule,delayed release(DR/EC) 20 mg PO DAILY Qty: 90 RF: 3 Metoprolol Succinate 25 MG TAB.ER.24H 25 mg PO DAILY Qty: 90 RF: 4 simvastatin 10 mg tablet 10 mg PO DAILY Qty: 90 RF: 4 losartan [Cozaar] 100 mg tablet 100 mg PO DAILY Qty: 90 RF: 4 aspirin 325 mg tablet 81 mg PO DAILY RF: 0 albuterol sulfate [Ventolin HFA] 90 mcg/actuation HFA aerosol inhaler 2 puff IH Q4H PRN (Reason: shortness of breath or wheezing) Qty: 8.5 RF: 11 metformin 500 mg tablet 1,000 mg PO BID RF: 0 Discharge Instructions Instructions: Tendinitis (ED) Additional Instructions: Rest. Activities as tolerated. Elevate injury to prevent swelling. Ice to the area of discomfort for 15 min. 3-5 times daily. Motrin every 8 hours with food or Tylenol every 6 hours for soreness if needed over the counter for comfort. Followup with orthopedic doctor as discussed if not improving in one week. Return for any worsening or concerns sooner if needed. Referrals: Charlie Capone MD [ [facility] STAFF PHYSICIAN] - Discharge Data Discharge Date/Time-TO BE ENTERED AT DEPARTURE: 09/12/19 15:19 Medical Decision Making Is a very pleasant 58-year-old woman presenting to the emergency room for a few weeks of right arm pain. Patient reports specifically wrist and hand pain. Patient reports she denies any specific injury or trauma however she does report over the last few weeks she has had moderate pain when attempting to use a snowblower at home. Patient reports pain with range of motion of right wrist and hand. Patient indicates the thumb and wrist as site of pain. Patient has been using [id number] splint which is been on relieving of her symptoms for approximately 1 week. Patient has been applying both heat and ice. Patient does report worsening after heat. Patient has tried werh-kev-zjiuoyo medications without relief. Patient is concerned regarding persistence of pain. Patient does have notable swelling of the right hand distally however I feel this is likely attributed to a splint which was too tight as there are clear indentations in the skin at site where splint was applied and has swelling distal to splint which was applied. Patient is distal neurovascularly intact. On exam patient does have notable forearm tenderness as well as volar wrist pain with palpation. Patient denies any sensory changes through the hand or complaints of numbness or tingling. Patient does have pain with palpation of the base of the thumb however no significant snuffbox pain. Patient does have some contralateral pain in a similar distribution predominantly at the thumb, left arm exam is benign. I discussed the likelihood of this being related to degenerative changes or tendinitis. Patient reports her understanding. We discussed imaging studies. Patient's preference is to have imaging of wrist and hand at this time. I explained that the yield is unlikely to identify fracture however this is patient's preference. X-rays ordered. X-rays obtained are unremarkable for identifiable fracture however do reveal degenerative changes. I recommended universal wrist splint which would be more supportive than the [id number] brace she has been using. I recommended rice and avoidance of heat. Recommended orthopedic or PCP follow-up if not improving with conservative treatments. Patient reports her understanding and agrees with plan of care. The patient was stable and requested discharge. Prior to discharge, my usual and customary return precautions were reviewed with the patient - this included follow-up instructions and reasons to return to the Emergency Department if conditions worsens, does not improve as expected, or other new concerns arise. HPI General Date/Time Provider Initiated Documentation: 09/12/19 12:36. HPI Narrative: There is a 58-year-old patient presenting to the emergency room for complaints of right hand and wrist pain. Patient denies specific injury or trauma however does report 1 to 2 weeks of wrist and hand pain which are worsening. Patient reports swelling present. She has been using an [id number]-[id number]-[id number] brace which is been on relieving of her symptoms. Patient has been both heating and icing the area. Patient denies any associated numbness, tingling or weakness. Patient denies any other sites of pain or concerns. Patient reports pain began after using the snowblower. Related Data Home Medications Medication Instructions Recorded Confirmed Cpap 10/24/12 03/06/19 acetaminophen [Tylenol] 650 mg PO Q4H PRN tab-cap 10/24/12 09/12/19 lancets [OneTouch Delica Lancets] #200 ea 12/15/12 03/06/19 OneTouch Ultra Test #100 strip 01/24/14 03/06/19 budesonide-formoterol HFA 80 2 puff INHALATION BID #3 gm 05/01/18 09/12/19 mcg-4.5 mcg/actuation aerosol inhaler inhalational spacing device #1 each 05/01/18 03/06/19 nitroglycerin 0.4 mg sublingual 0.4 mg SUBLINGUAL PRN #25 tab-cap 05/04/18 09/12/19 tablet amlodipine 5 mg tablet 5 mg PO DAILY #90 tab-cap 07/27/18 09/12/19 clopidogrel 75 mg tablet 75 mg PO DAILY #90 tab 07/27/18 09/12/19 omeprazole 20 mg capsule,delayed 20 mg PO DAILY #90 tab-cap 07/31/18 09/12/19 release simvastatin 10 mg PO DAILY #90 tab-cap 07/31/18 09/12/19 losartan 100 mg tablet 100 mg PO DAILY #90 tab-cap 12/27/18 09/12/19 trazodone 50 mg tablet 50 mg PO HS PRN #30 tab-cap 01/07/19 09/12/19 mometasone 50 mcg/actuation nasal 2 spray KUMAR DAILY #17 gm 01/30/19 03/06/19 spray nicotine 14 mg/24 hr daily 1 patch TD DAILY #21 each 01/30/19 09/12/19 transdermal patch nystatin 100,000 unit/mL oral 500,000 unit PO QID #250 ml 01/30/19 03/06/19 suspension fluticasone propionate 50 1 spray KUMAR BID PRN #9.9 gm 02/03/19 09/12/19 mcg/actuation nasal spray,suspension loratadine 10 mg tablet 10 mg PO DAILY 02/03/19 09/12/19 aspirin 325 mg tablet 81 mg PO DAILY tab-cap 02/19/19 09/12/19 lorazepam 1 mg tablet 0.5 - 1 mg PO BID PRN #30 tab 02/19/19 09/12/19 albuterol sulfate 90 mcg/actuation 2 puff IH Q4H PRN #8.5 gm 08/29/19 09/12/19 aerosol inhaler metformin 1,000 mg PO BID 09/12/19 09/12/19 Previous Rx's Medication Instructions Recorded budesonide-formoterol HFA 80 2 puff INHALATION BID #3 gm 05/01/18 mcg-4.5 mcg/actuation aerosol inhaler inhalational spacing device #1 each 05/01/18 nitroglycerin 0.4 mg sublingual 0.4 mg SUBLINGUAL PRN #25 tab-cap 05/04/18 tablet amlodipine 5 mg tablet 5 mg PO DAILY #90 tab-cap 07/27/18 clopidogrel 75 mg tablet 75 mg PO DAILY #90 tab 07/27/18 omeprazole 20 mg capsule,delayed 20 mg PO DAILY #90 tab-cap 07/31/18 release simvastatin 10 mg PO DAILY #90 tab-cap 07/31/18 losartan 100 mg tablet 100 mg PO DAILY #90 tab-cap 12/27/18 trazodone 50 mg tablet 50 mg PO HS PRN #30 tab-cap 01/07/19 mometasone 50 mcg/actuation nasal 2 spray KUMAR DAILY #17 gm 01/30/19 spray nicotine 14 mg/24 hr daily 1 patch TD DAILY #21 each 01/30/19 transdermal patch nystatin 100,000 unit/mL oral 500,000 unit PO QID #250 ml 01/30/19 suspension fluticasone propionate 50 1 spray KUMAR BID PRN #9.9 gm 02/03/19 mcg/actuation nasal spray,suspension lorazepam 1 mg tablet 0.5 - 1 mg PO BID PRN #30 tab 02/19/19 albuterol sulfate 90 mcg/actuation 2 puff IH Q4H PRN #8.5 gm 08/29/19 aerosol inhaler Allergies Allergy/AdvReac Type Severity Reaction Status Date / Time azithromycin AdvReac Mild Nausea Verified 09/12/19 12:17 codeine AdvReac Mild Nausea Verified 09/12/19 12:17 erythromycin base AdvReac Mild Nausea Verified 09/12/19 12:17 ibuprofen AdvReac Mild Nausea Verified 09/12/19 12:17 lisinopril AdvReac Mild cough Verified 09/12/19 12:17 NSAIDS (Non-Steroidal AdvReac Mild Nausea Verified 09/12/19 12:17 Anti-Inflamma General Stated Complaint: Orthopedic MONICA: 4 Review of Systems All systems reviewed & are unremarkable except as noted in HPI and below Constitutional Constitutional: Denies headache(s) ENT Ears, Nose, Mouth, and Throat: Denies headache(s) and Denies neck pain Musculoskeletal Musculoskeletal: Denies back pain, Denies limited range of motion, Denies neck pain, Denies numbness, Reports stiffness and Denies tingling Integumentary/Breasts Skin/Breast: Denies sores and Denies wounds Neurologic Neurologic: Denies headache(s), Denies focal weakness, Denies numbness, Denies sensory deficit, Denies tingling and Denies paresthesias PFSH Medical History Allergic rhinitis (Acute) Anxiety Atherosclerotic cardiovascular disease Bipolar disorder (Chronic) Caren, oral (Acute) Compliant with therapeutic regimen (Acute) COPD (chronic obstructive pulmonary disease) Depression Diabetes type 2, controlled Heart murmur Hyperlipidemia Hypertension Incontinence (Acute) Morbid obesity with BMI of 40.0-44.9, adult Pedal edema (Acute) Plantar fasciitis of left foot Sleep apnea Stress incontinence in female Varicose veins of lower extremity (Acute) Surgical History Arthroplasty of knee LEFT Cervical Procedure BX VALENTINO I section (~1981) Stent placement X 4 TO LCX Social History Smoking/Tobacco Use Status: Current every day Tobacco Type: cigarettes Smoking packs per day: 1 Smoking cigarettes per day: 20.0 Alcohol Intake: current Alcohol Intake frequency: holidays/special occasions only Alcohol type: beer and hard liquor Drug use: Occasionally Substance use type: marijuana Household members: significant other Housing: house Communication Needs: None Do you need help understanding health information?: Rarely Pets and animals: Yes Pets and animals: dog(s) Do you think of yourself as: straight/heterosexual Current gender identity: female What is your relationship status?: living with partner How often do you talk on the phone with friends or family?: three or more times per week How often do you get together with friends or relatives?: decline to answer How often do you attend alevism or anabaptist services?: decline to answer Do you belong to any clubs or organized social groups?: no Panel score (0-1 are the most socially isolated patients): 2 What type of physical activity do you participate in: none Duration: < 15 minutes/day Frequency: daily Katerina/Congregational: none Special katerina needs: No Seatbelt use: sometimes Helmet use: Yes Helmet use: always Drive intox or ride w/intox form setter/driver: No Do you feel safe at home: Yes Do you feel safe in your relationship?: Yes Exam Narrative Exam Narrative: CONST: Healthy appearing patient, in no acute distress. Well hydrated. Alert and oriented. NECK: Normal visual inspection. FROM. Trachea midline. No Midline tenderness. MUSCULOSKELETAL: Normal Gait. Right arm: No clavicle pain with palpation, shoulder pain, humeral pain, elbow pain with palpation. Mild forearm pain with palpation, mild dorsal wrist pain both radial and ulnar aspects of the wrist. Pain with range of motion of the wrist however no limitation to range of motion. Patient with dorsal hand pain noted specifically at the base of the right thumb. No significant snuffbox tenderness. Patient with swelling noted to the digits however she has skin lines consistent with a splint which was applied to tightly. Distal neurovascularly intact. Pulses intact. Sensation intact through all digits. No limitation to range of motion of the right hand. [employer] strength intact and equal compared to contralateral arm. Left arm exam reveals mild pain in a similar location at the base of the left thumb but significantly less mild. No associated swelling of the left arm. Remainder of physical exam of left arm is benign. SKIN: Normal. Dry. No rashes. NEURO: Alert and awake. Speech clear. PSYCH: Normal affect. Cooperative. Course Vital Signs Vital signs: Vital Signs Temperature 36.6 C 09/12/19 12:13 Pulse 66 09/12/19 12:13 Respiratory Rate 18 09/12/19 12:13 Blood Pressure 130/87 09/12/19 12:13 Pulse Oximetry 97 09/12/19 12:13 Temperature 36.5 C 09/12/19 15:19 Temperature Source Skin 09/12/19 14:28 Pulse 60 09/12/19 15:19 Pulse Rhythm Regular 09/12/19 14:28 Pulse Strength Normal 09/12/19 14:28 Respiratory Rate 16 09/12/19 15:19 Respiratory Effort 09/12/19 14:28 Respiratory Depth Normal 09/12/19 14:28 Respiratory Pattern Normal 09/12/19 14:28 Blood Pressure 130/86 09/12/19 15:19 Blood Pressure Mean 74 09/12/19 14:28 Blood Pressure Position Sitting 09/12/19 14:28 Pulse Oximetry 96 09/12/19 15:19 Oxygen Delivery Method Room Air 09/12/19 14:28 Oxygen Flow Rate 0 09/12/19 14:28 Pain Level 7 09/12/19 12:13 Comment 09/12/19 12:13
== END 2019-09-12 15:19 | disposition home or self-care (01) ==
PROVIDERS: Emergency Provider Physician Assistant; PCP Family Medicine
DX: M19.031 Primary osteoarthritis, right wrist (principal); M77.8 Other enthesopathies, not elsewhere classified; J44.9 Chronic obstructive pulmonary disease, unspecified; F17.210 Nicotine dependence, cigarettes, uncomplicated; E11.9 Type 2 diabetes mellitus without complications; Z79.84 Long term (current) use of oral hypoglycemic drugs; I10 Essential (primary) hypertension
CPT/HCPCS: 29125; 99284; 73110; 73130; L3908

== ENCOUNTER 2020-08-17 11:12 | Emergency (ER) | payer MEDICAID, SELFPAY ==
[2020-08-17 11:31] VITALS: BP 158/99; PULSE 73; TEMP 36.5; O2SAT 98
[2020-08-17 11:37] VITALS: RESP 16
--- NOTE | 2020-08-17 12:17 | W.ED.GENAD ---
Discharge Plan Disposition Patient Disposition: HOME Condition: Stable Discharge Details Clinical Impression: Anxiety, URI (upper respiratory infection), Elevated troponin Primary Care Provider: Luis E Narayan ED Provider: Cindy Roth Home Meds and New Rx's Prescriptions: Continued budesonide-formoterol [Symbicort] 80-4.5 mcg/actuation HFA aerosol inhaler 2 puff Inhalation BID Qty: 3 RF: 11 (DME) Aerochamber MV spacer See Dose Instructions .Route .MEDSUPPLY Qty: 1 RF: 0 nicotine 14 mg/24 hr patch 24 hour 1 patch TD DAILY Qty: 21 RF: 2 nystatin 100,000 unit/mL suspension 500,000 unit PO QID Qty: 250 RF: 0 mometasone 50 mcg/actuation spray,non-aerosol 2 spray KUMAR DAILY Qty: 17 RF: 11 fluticasone propionate [Flonase Allergy Relief] 50 mcg/actuation spray,suspension 1 spray KUMAR BID PRN (Reason: nasal congestion) Qty: 9.9 RF: 3 loratadine [Claritin] 10 mg tablet 10 mg PO DAILY RF: 0 lorazepam 1 mg tablet 0.5 - 1 mg PO BID PRN (Reason: anxiety) Qty: 30 RF: 0 nitroglycerin 0.4 mg tablet, sublingual 0.4 mg Sublingual PRN Qty: 25 RF: 2 acetaminophen [Tylenol] 325 MG tablet 650 mg PO Q4H PRN RF: 0 CPAP RF: 0 (DME) lancets [OneTouch Delica Lancets] 1 EACH misc 1 ea Intradermal BID Qty: 200 RF: 4 (DME) OneTouch Ultra Test 1 EACH strip 1 strip Miscellaneous DAILY Qty: 100 RF: 3 amlodipine 5 mg tablet 5 mg PO DAILY Qty: 90 RF: 4 clopidogrel [Plavix] 75 mg tablet 75 mg PO DAILY Qty: 90 RF: 4 omeprazole 20 mg capsule,delayed release(DR/EC) 20 mg PO DAILY Qty: 90 RF: 3 Metoprolol Succinate 25 MG TAB.ER.24H 25 mg PO DAILY Qty: 90 RF: 4 simvastatin 10 mg tablet 10 mg PO DAILY Qty: 90 RF: 4 losartan [Cozaar] 100 mg tablet 100 mg PO DAILY Qty: 90 RF: 4 albuterol sulfate [Ventolin HFA] 90 mcg/actuation HFA aerosol inhaler 2 puff IH Q4H PRN (Reason: shortness of breath or wheezing) Qty: 8.5 RF: 11 aspirin 81 mg Tablet,Delayed Release (Dr/Ec) 81 mg PO DAILY RF: 0 lamotrigine 100 mg tablet 150 mg PO QAM RF: 0 buspirone 15 mg tablet 15 mg PO BID RF: 0 lamotrigine 50 mg Tablet,Disintegrating 50 mg PO HS RF: 0 mitomycin 0.2 mg Kit 1 mg OPHTHALMIC (EYE) QID RF: 0 trazodone 50 mg tablet 100 mg PO HS PRN RF: 0 metformin 500 mg tablet 1,000 mg PO BID RF: 0 Discharge Instructions Instructions: Angina (ED), Upper Respiratory Infection (ED), Anxiety (ED) Additional Instructions: As we discussed, your blood work is concerning for elevated cardiac markers. I would like for you to have an echo and a stress test as soon as possible. A referral has been sent for this. If you do develop chest pain please take the nitro as previously advised prior to considering her daily aspirin. Your upper respiratory symptoms are most consistent with a viral illness. You were negative for Covid here today. Please encourage water intake. You need to be symptoms as needed with Tylenol. You have a large amount of stress and anxiety at this time. Please increase the frequently as the new counselor. Please continue with your medications as prescribed Please follow-up with your primary care within the next week. If you develop increased chest pain, shortness of breath, fevers or chills, difficulty breathing or other new/worsening symptoms please seek care urgently once again. I have also referred you to someone to help you stop smoking . Referrals: Luis E Narayan [Primary Care Provider] - Discharge Data Discharge Date/Time-TO BE ENTERED AT DEPARTURE: 08/17/20 22:10 Medical Decision Making <Radha Tariq - Last Filed: 08/18/20 08:39> 59 year old female presents to the ED with chief complaint of SOB, Wheezing, sore throat x 3 days. Reports productive cough. 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 Patient has a past medical history of COPD, sleep apnea, type 2 diabetes, anxiety, bipolar, CAD. Patient has an abnormal looking chest x-ray to me, so additional work-up will be ordered including labs. EXAM: XR PORTABLE CHEST AP CLINICAL HISTORY: PUI, SOB, wheezing, cough TECHNIQUE: 2D digital imaging was performed. COMPARISON: No exams were available for comparison FINDINGS: MEDIASTINUM: Normal. HEART: Normal. PULMONARY VASCULATURE: Normal. LUNGS: Clear. PLEURAL SPACE: No pleural effusion or pneumothorax. BONE:Within normal limits for the patient's age. OTHER FINDINGS:There is poor inspiration. IMPRESSION: No acute pulmonary findings. 1356: Labs are pending at this time, follow-up with Dr. Man regarding chest x-ray he confirms that there is no infiltrate or acute cardiopulmonary abnormality. Critical initial troponin received at 0.08 The majority of the rest of the labs are largely within normal limits. No leukocytosis, PT/INR within normal limits CMP is also within normal limits. 1525: Spoke with Dr. Perez who is on for hospitalist regarding patient case and details she recommends waiting for the second troponin which is due at 1623. She also recommends adding on a proBNP and PT patient is on Plavix. She would like us to do a rapid Covid test this would help in making decision whether patient is more appropriate for this facility or transfer to [facility]. She was able to view the chest x-ray. Discussed troponin results with patient. Patient she states that she has been having some left-sided chest pain for a while she attributed this to upper respiratory type symptoms and coughing. Discussed plan of care and additional lab work-up ordered including rapid Covid, additional lab work and possible admission she verbalizes understanding at this time she is concerned about being able to get her eyedrops. I did encourage her that we would be able to get her home meds no matter if she was admitted here or transferred. Care is to be handed off to oncoming provider Cindy Damian pending additional lab work and repeat troponin which is due 1623, I did discuss patient's case in details with Cindy. Differential diagnosis includes but not limited to Covid, myocarditis, NSTEMI, CAD, URI, pneumonia, viral illness, sinusitis, strep throat <RAEGAN Calvert - Last Filed: 08/18/20 01:24> Care transitioned to myself from Radha Tariq NP, with repeat troponin and COVID pending. Please see her note regarding presentation, history and exam. In brief, patient is [id number] female complex past medical history presenting today with chief complaint of shortness of breath, sore throat, ear discomfort, wheezing, headache. There was concern for potential COVID-19. COVID-19 testing is negative. Patient initially denied any shortness of breath for the provider. However, on my reassessment, after the patient's initial troponin was noted to be 0.08, she reports that she does have some exertional shortness of breath and exertional chest discomfort which is new in the past few weeks. She is denying any chest pain currently. She does take an aspirin daily in the morning, we will augment this for full dosing. Repeat troponin is 0.09. Repeat EKG was reviewed by Dr. Alvarez. Patient was notified she had moderate 56, no acute ischemic changes noted. Plan to consult with [facility] with concern for NSTEMI. Consulted with Dr. Barbosa with cardiology. We discussed history and labs. He advised stress test and echo. He advised that her troponin is minimally elevated and would not register at their facility. He does not feel that we need to heparinize her at htis time. He said to admit, trend troponin and test patient with stress and echo tomorrow. If troponin continues to increase, give heparin and contact cardiology again. Discussed these recommendations with the patient. She does seem fairly upset by this. She would prefer to be discharged home. She denied to discuss my concerns for cardiac pathology. She is under an immense amount of stress both socially as well as with her chronic medical conditions. Patient has been smoking more than normal states she has been smoking at least a pack a day. Patient's been crying frequently during my discussion with her here. Consulted with Dr. Edwards. He reviewed the patient's chart and evaluated the patient. He feels that the troponin remains flat and barely elevated. We did discuss the recommendations from [facility] cardiology. We discussed disposition at length. Plan to obtain third troponin on the patient. In 8 hours since her arrival in the replete this now. He feels that if the troponin remains stable patient may be discharged home. Please see Dr. Edwards's note for further details. Patient's repeat troponin remains stable at 0.09. Discussed findings at length with the patient. Patient and I again discussed disposition. I do remain concerned for stable angina with worsening cardiac disease leading to a bump troponin point. However, she would prefer discharge home. She reports that she does live with family and is able to return immediately if she develops any new or worsening symptoms. As a patient troponin is stable and she is able to return for outpatient testing, I do feel that this would be appropriate option for her. Patient and I discussed stress reduction techniques. She does have nitro at home which she will use if she develops any new or worsening symptoms. She will continue with her daily aspirin. She will follow-up with primary care within the next week for reevaluation. HPI <Radha Tariq - Last Filed: 08/18/20 08:39> General Mode of arrival: ambulatory. Date/Time Provider Initiated Documentation: 08/17/20 11:47. Limitations to Documentation: no limitations. Information obtained by: patient. HPI Narrative: 59 year old female presents to the ED with chief complaint of SOB, Wheezing, sore throat x 3 days. Reports productive cough. 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 Patient has a past medical history of COPD, sleep apnea, type 2 diabetes, anxiety, bipolar, CAD. Related Data Home Medications Medication Instructions Recorded Confirmed Cpap 10/24/12 03/06/19 acetaminophen [Tylenol] 650 mg PO Q4H PRN tab-cap 10/24/12 08/17/20 lancets [OneTouch Delica Lancets] #200 ea 12/15/12 03/06/19 OneTouch Ultra Test #100 strip 01/24/14 03/06/19 budesonide-formoterol HFA 80 2 puff INHALATION BID #3 gm 05/01/18 08/17/20 mcg-4.5 mcg/actuation aerosol inhaler inhalational spacing device #1 each 05/01/18 03/06/19 nitroglycerin 0.4 mg sublingual 0.4 mg SUBLINGUAL PRN #25 tab-cap 05/04/18 08/17/20 tablet amlodipine 5 mg tablet 5 mg PO DAILY #90 tab-cap 07/27/18 08/17/20 clopidogrel 75 mg tablet 75 mg PO DAILY #90 tab 07/27/18 08/17/20 omeprazole 20 mg capsule,delayed 20 mg PO DAILY #90 tab-cap 07/31/18 08/17/20 release simvastatin 10 mg PO DAILY #90 tab-cap 07/31/18 08/17/20 losartan 100 mg tablet 100 mg PO DAILY #90 tab-cap 12/27/18 08/17/20 mometasone 50 mcg/actuation nasal 2 spray KUMAR DAILY #17 gm 01/30/19 08/17/20 spray nicotine 14 mg/24 hr daily 1 patch TD DAILY #21 each 01/30/19 08/17/20 transdermal patch nystatin 100,000 unit/mL oral 500,000 unit PO QID #250 ml 01/30/19 08/17/20 suspension fluticasone propionate 50 1 spray KUMAR BID PRN #9.9 gm 02/03/19 08/17/20 mcg/actuation nasal spray,suspension loratadine 10 mg tablet 10 mg PO DAILY 02/03/19 08/17/20 lorazepam 1 mg tablet 0.5 - 1 mg PO BID PRN #30 tab 02/19/19 08/17/20 albuterol sulfate 90 mcg/actuation 2 puff IH Q4H PRN #8.5 gm 08/29/19 08/17/20 aerosol inhaler metformin 1,000 mg PO BID 09/12/19 08/17/20 aspirin 81 mg PO DAILY 08/17/20 08/17/20 buspirone 15 mg PO BID 08/17/20 08/17/20 lamotrigine 50 mg PO HS 08/17/20 08/17/20 lamotrigine 150 mg PO QAM 08/17/20 08/17/20 mitomycin 1 mg OPHTHALMIC (EYE) QID 08/17/20 08/17/20 trazodone 100 mg PO HS PRN 08/17/20 08/17/20 Previous Rx's Medication Instructions Recorded budesonide-formoterol HFA 80 2 puff INHALATION BID #3 gm 05/01/18 mcg-4.5 mcg/actuation aerosol inhaler inhalational spacing device #1 each 05/01/18 nitroglycerin 0.4 mg sublingual 0.4 mg SUBLINGUAL PRN #25 tab-cap 05/04/18 tablet amlodipine 5 mg tablet 5 mg PO DAILY #90 tab-cap 07/27/18 clopidogrel 75 mg tablet 75 mg PO DAILY #90 tab 07/27/18 omeprazole 20 mg capsule,delayed 20 mg PO DAILY #90 tab-cap 07/31/18 release simvastatin 10 mg PO DAILY #90 tab-cap 07/31/18 losartan 100 mg tablet 100 mg PO DAILY #90 tab-cap 12/27/18 mometasone 50 mcg/actuation nasal 2 spray KUMAR DAILY #17 gm 01/30/19 spray nicotine 14 mg/24 hr daily 1 patch TD DAILY #21 each 01/30/19 transdermal patch nystatin 100,000 unit/mL oral 500,000 unit PO QID #250 ml 01/30/19 suspension fluticasone propionate 50 1 spray KUMAR BID PRN #9.9 gm 02/03/19 mcg/actuation nasal spray,suspension lorazepam 1 mg tablet 0.5 - 1 mg PO BID PRN #30 tab 02/19/19 albuterol sulfate 90 mcg/actuation 2 puff IH Q4H PRN #8.5 gm 08/29/19 aerosol inhaler Allergies Allergy/AdvReac Type Severity Reaction Status Date / Time azithromycin AdvReac Mild Nausea Verified 08/17/20 11:41 codeine AdvReac Mild Nausea Verified 08/17/20 11:41 erythromycin base AdvReac Mild Nausea Verified 08/17/20 11:41 ibuprofen AdvReac Mild Nausea Verified 08/17/20 11:41 lisinopril AdvReac Mild cough Verified 08/17/20 11:41 NSAIDS (Non-Steroidal AdvReac Mild Nausea Verified 08/17/20 11:41 Anti-Inflamma General Stated Complaint: GenMedical MONICA: 3 Review of Systems <Radha Tariq - Last Filed: 08/18/20 08:39> Narrative: Constitutional: Negative for weight loss, alert and oriented, well groomed, obese body habitus, appears comfortable. HEENT: Denies trauma, blurry vision, trouble swallowing. Positive headache, sore throat, sinus pressure. Chest: Denies chest pain, palpitations, irregular rhythm, hypertension. Respiratory: Denies , hemoptysis. Positive shortness of breath, wheezing, cough reports productive but not noticed if it was colored sputum. GI: Denies abdominal pain, nausea, vomiting, diarrhea, constipation. : Denies dysuria, hematuria, flank pain, rectal bleeding. Neuro: Denies dizziness, blurry vision, weakness, syncope, or facial numbness. Hematologic: Denies easy bruising, intolerance to heat or cold, hair loss. PFSH <Radha Tariq - Last Filed: 08/18/20 08:39> Medical History (Updated 08/17/20 @ 21:44 by RAEGAN Calvert) Allergic rhinitis Anxiety Atherosclerotic cardiovascular disease Bipolar disorder Caren, oral Compliant with therapeutic regimen COPD (chronic obstructive pulmonary disease) Depression Diabetes type 2, controlled Heart murmur Hyperlipidemia Hypertension Incontinence Morbid obesity with BMI of 40.0-44.9, adult Pedal edema Plantar fasciitis of left foot Sleep apnea Stress incontinence in female Varicose veins of lower extremity Surgical History Arthroplasty of knee LEFT Cervical Procedure BX VALENTINO I section (~1981) Stent placement X 4 TO LCX Family History Mother Personal history of malignant neoplasm UTERINE CA; HYSTERECTOMY AGE 76 Uterine cancer Hysterectomy at 76 Father Heart disease Brother Diabetes Cancer Brother No problems noted. Brother No problems noted. Social History Smoking/Tobacco Use Status: Current every day Tobacco Type: cigarettes Smoking packs per day: 1 Smoking cigarettes per day: 20.0 Smoking risk assessment performed?: Yes Alcohol Intake: current Alcohol Intake frequency: holidays/special occasions only Alcohol type: beer and hard liquor Drug use: Occasionally Substance use type: marijuana Household members: significant other Housing: house Communication Needs: None Do you need help understanding health information?: Rarely Pets and animals: Yes Pets and animals: dog(s) Do you think of yourself as: straight/heterosexual Current gender identity: female What is your relationship status?: living with partner How often do you talk on the phone with friends or family?: three or more times per week How often do you get together with friends or relatives?: decline to answer How often do you attend pentecostalism or restoration services?: decline to answer Do you belong to any clubs or organized social groups?: no Panel score (0-1 are the most socially isolated patients): 2 What type of physical activity do you participate in: none Duration: < 15 minutes/day Frequency: daily Katerina/Mu-Ism: none Special katerina needs: No Seatbelt use: sometimes Helmet use: Yes Helmet use: always 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 Appears older than stated age. Obese body habitus. Head: Normocephalic, no trauma. Eyes: Right pupil is PERRLA, EOM's intact. Left eye is injected, let lid somewhat drooping ENT: Bilateral TM's WNL, External ear normal to inspection, no mastoid TTP, swelling, or erythema, Nasal turbinates WNL, no nasal discharge. Normal dentition, Posterior pharynx erythemic, there is white lesions noted to the mucous membrane posteriorly. Chest: RRR, Normal S1, S2, distal pulses intact. Resp: Lungs clear to auscultation bilaterally, no wheezes, rales, or rhonchi. Musculoskeletal: Normal gait, 5/5 strength to all four extremities. Skin: No suspicious rashes or lesions. Capillary refill less than 2 sec. Neurologic: Cranial nerves II-XII intact. Alert and oriented x 3. DTR's intact. Hematologic/Lymphatic: No ecchymosis, no lymphadenopathy. Course <Radha Tariq - Last Filed: 08/18/20 08:39> Vital Signs Vital signs: Vital Signs Temperature 36.5 C 08/17/20 11:31 Pulse 73 08/17/20 11:31 Blood Pressure 158/99 H 08/17/20 11:31 Pulse Oximetry 98 08/17/20 11:31 Temperature 36.5 C 08/17/20 11:31 Temperature Source Oral 08/17/20 11:31 Pulse 73 08/17/20 11:31 Respiratory Rate 16 08/17/20 11:37 Respiratory Effort Incrsd Work of Breathing 08/17/20 11:37 Respiratory Depth Normal 08/17/20 11:37 Respiratory Pattern Normal 08/17/20 11:37 Blood Pressure 158/99 H 08/17/20 11:31 Blood Pressure Position Sitting 08/17/20 11:31 Pulse Oximetry 98 08/17/20 11:31 Oxygen Delivery Method Room Air 08/17/20 11:31 Oxygen Flow Rate 0 08/17/20 11:31 Pain Level 6 08/17/20 11:31 Sign Out <Radha Tariq - Last Filed: 08/18/20 08:39> Sign Out Data: Sign Out Comment: Pending Second troponin and possible admission versus Transfer Last updated by Radha Tariq at 08/17/20 15:40
--- NOTE | 2020-08-17 13:01 | DI.RAD_ITS ---
EXAM: XR PORTABLE CHEST AP CLINICAL HISTORY: PUI, SOB, wheezing, cough TECHNIQUE: 2D digital imaging was performed. COMPARISON: No exams were available for comparison FINDINGS: MEDIASTINUM: Normal. HEART: Normal. PULMONARY VASCULATURE: Normal. LUNGS: Clear. PLEURAL SPACE: No pleural effusion or pneumothorax. BONE:Within normal limits for the patient's age. OTHER FINDINGS:There is poor inspiration. IMPRESSION: No acute pulmonary findings. DATA REPOSITORY: RADIATION DOSE DELIVERED:
[2020-08-17 13:56] LABS: Abs Immature Grans 0.03 10^3/uL (0.0-0.06); Absolute Basophil Count 0.05 10^3/uL (0.0-0.2); Absolute Eosinophil Count 0.13 10^3/uL (0.0-0.7); Absolute Lymphocyte Count 1.98 10^3/uL (1.2-3.4); Absolute Monocyte Count 0.45 10^3/uL (0.1-0.8); Absolute Neutrophil Count 4.59 10^3/uL (1.2-6.7); Basophils % 0.7; Eosinophils % 1.8; HGB 12.9 g/dL (11.2-15.7); Immature Grans % 0.4; Lymphocytes % 27.4; MCHC 33.1 % (32.0-36.0); MCV 87.6 fL (80-95); MPV 9.1 fL (8.0-11.0); Monocytes % 6.2; Neutrophils % 63.5; Nucleated RBC 0 %; Platelet Count 372 10^3/uL (130-400); RBC 4.45 10^6/uL (3.93-5.22); RDW 13.6 % (11.7-14.6); RDW-SD 43.6 fL; WBC 7.23 10^3/uL (4.4-10.8)
[2020-08-17 14:14] LABS: ALT 32 U/L (14-59); AST 19 U/L (15-37); Albumin 3.6 g/dL (3.4-5.0); Alkaline Phosphatase 108 U/L (46-116); Anion Gap 6.9 mmol/L (3-11); BUN 12 mg/dL (7-18); Bilirubin, Total 0.4 mg/dL (0.2-1.0); CO2 29.1 mmol/L (21.0-32.0); CREATININE 0.9 mg/dL (0.55-1.02); Calcium 9.1 mg/dL (8.5-10.1); Chloride 105 mmol/L (98-107); Glucose 185 mg/dL (74-106); Magnesium 1.8 mg/dL (1.8-2.4); Sodium 141 mmol/L (136-145); Total Protein 7.3 g/dL (6.4-8.2)
[2020-08-17 14:15] LABS: Troponin I 0.08 ng/mL (<0.06)
--- NOTE | 2020-08-17 14:15 | RT.EKG_ITS ---
APPROVED REPORT Exam: Resting ECG Patient Location: E HR:65 bpm ECG Measurements Heart Rate 65 AXIS WV 205 P 37 QRSd 90 QRS 25 QT 397 T 27 QTc 414 Conclusion Sinus rhythm...normal P axis, V-rate 60- 99 Borderline prolonged WV interval...WV >202, V-rate 50- 90 non-diagnostic EKG I have reviewed and interpreted ECG and agree with software generated interpretation.
--- NOTE | 2020-08-17 14:16 | NUR.NOTE ---
LAB REPORTED CRITICAL TROPONIN 0.08. RESULT GIVEN TO SIMEON DIAMOND NPNursing Note:
[2020-08-17 15:09] LABS: LDH 209 U/L (81-234)
[2020-08-17 15:34] LABS: Ferritin 43 ng/mL (8-252)
[2020-08-17 15:43] LABS: Procalcitonin < 0.1 ng/mL
[2020-08-17 15:48] LABS: Prothrombin Time 10.2 sec (9.3-11.0)
[2020-08-17 15:59] LABS: Source Nasopharynx
[2020-08-17 16:03] LABS: NT-proBNP 84 pg/mL (<300)
[2020-08-17] MEDS: Normal Saline 1,000 ML 150 ML IV (16:09)
[2020-08-17] MEDS: Normal Saline Flush 10 ML SYR IVP (16:10)
[2020-08-17] MEDS: LORazepam 2 MG/ML VIAL 0.5 MG IVP ×2 (16:43→20:14)
--- NOTE | 2020-08-17 16:45 | RT.EKG_ITS ---
APPROVED REPORT Exam: Resting ECG Patient Location: E HR:66 bpm ECG Measurements Heart Rate 66 AXIS CA 191 P 32 QRSd 91 QRS 17 QT 397 T 28 QTc 417 Conclusion Sinus rhythm...normal P axis, V-rate 60- 99
[2020-08-17 16:46] LABS: COVID-19 PCR Negative (Negative); Influenza A PCR Negative (Negative); Influenza B PCR Negative (Negative); RSV PCR Negative (Negative)
[2020-08-17 18:24] LABS: Troponin I 0.09 ng/mL (<0.06)
[2020-08-17 19:15] VITALS: BP 158/92; PULSE 81; RESP 22; O2SAT 96
[2020-08-17] MEDS: Ondansetron 4 MG/2 ML VIAL IVP (20:14)
[2020-08-17] MEDS: Nicotine 21 MG/24 HR PATCH TD (20:15)
[2020-08-17] MEDS: Aspirin 81 MG CHEW 162 MG CH (20:15)
--- NOTE | 2020-08-17 20:28 | W.MEDCONSULT ---
Date of service: 08/17/20 Time of Service: 20:29 Assessment and Plan Assessment and plan (1) Upper respiratory infection: Status: Acute Assessment and plan: I think the patient has URI, presumably same illness the grandchildren had. I think the troponin is likely incidental and not even clear if at this minimal level, and without CP, it has any clinical significance at all. Since patient has now been here for almost eight hours a third troponin could be checked now. Assuming this remains flat I think the patient could be discharged with planned f/u stress testing on non-urgent basis. Will update note when third troponin back. History of Present Illness History of Present Illness Chief Complaint: sore throat and runny nose Narrative: 59 female reports grandchildren visiting as of 2 weeks ago, all had some upper respiratory illness, and no precautions were being maintained. She now comes in with 3-4 days of sore throat, runny nose, myalgias, transient ear fullness (not at present). Denies CP. In ER rapid Covid negative. Troponin obtained, minimally above negative limit at 0.08, and second 0.09. EKG stable and WNL. Case reviewed with [facility], advised these numbers would not flag at their institution, but advised complete trend and plan on stress test. Again, patient has had no CP. She asks me whether she can go home as she is quite anxious about being here in the hospital. Review of Systems All systems reviewed & are unremarkable except as noted in HPI and below PFSH Medical History (Updated 08/17/20 @ 20:37 by Zain Edwards MD) Allergic rhinitis Anxiety Atherosclerotic cardiovascular disease Bipolar disorder Caren, oral Compliant with therapeutic regimen COPD (chronic obstructive pulmonary disease) Depression Diabetes type 2, controlled Heart murmur Hyperlipidemia Hypertension Incontinence Morbid obesity with BMI of 40.0-44.9, adult Pedal edema Plantar fasciitis of left foot Sleep apnea Stress incontinence in female Varicose veins of lower extremity Surgical History Arthroplasty of knee LEFT Cervical Procedure BX VALENTINO I section (~1981) Stent placement X 4 TO LCX Family History Mother Personal history of malignant neoplasm UTERINE CA; HYSTERECTOMY AGE 76 Uterine cancer Hysterectomy at 76 Father Heart disease Brother Diabetes Cancer Brother No problems noted. Brother No problems noted. Social History Smoking/Tobacco Use Status: Current every day Tobacco Type: cigarettes Smoking packs per day: 1 Smoking cigarettes per day: 20.0 Smoking risk assessment performed?: Yes Alcohol Intake: current Alcohol Intake frequency: holidays/special occasions only Alcohol type: beer and hard liquor Drug use: Occasionally Substance use type: marijuana Household members: significant other Housing: house Communication Needs: None Do you need help understanding health information?: Rarely Pets and animals: Yes Pets and animals: dog(s) Do you think of yourself as: straight/heterosexual Current gender identity: female What is your relationship status?: living with partner How often do you talk on the phone with friends or family?: three or more times per week How often do you get together with friends or relatives?: decline to answer How often do you attend yazdanism or oriental orthodox services?: decline to answer Do you belong to any clubs or organized social groups?: no Panel score (0-1 are the most socially isolated patients): 2 What type of physical activity do you participate in: none Duration: < 15 minutes/day Frequency: daily Katerina/Adventism: none Special katerina needs: No Seatbelt use: sometimes Helmet use: Yes Helmet use: always Drive intox 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 HEENT erythema and clear D/C OS. Throat no exudate or lesions; neck supple, w/o adenopathy; lungs clear; heart RRR; abdomen soft and NT; extremities w/o edema; neuro Ox3, moves all 4s. Results Last Vital Signs Temp 36.5 C 08/17/20 11:31 Pulse 81 08/17/20 19:15 Resp 22 08/17/20 19:15 BP 158/92 H 08/17/20 19:15 Pulse Ox 96 08/17/20 19:15 Labs Result diagrams: 08/17/20 13:51 08/17/20 13:51 Labs: Laboratory Results - last 24 hr 08/17/20 08/17/20 08/17/20 13:51 13:51 13:51 WBC 7.23 RBC 4.45 Hgb 12.9 Hct 39.0 MCV 87.6 MCH 29.0 MCHC 33.1 RDW 13.6 Plt Count 372 MPV 9.1 Immature Gran % 0.4 Neutrophils % 63.5 Lymphocytes % 27.4 Monocytes % 6.2 Eosinophils % 1.8 Basophils % 0.7 Nucleated RBC % 0 Absolute Neutrophils 4.59 Absolute Lymphocytes 1.98 Absolute Monocytes 0.45 Absolute Eosinophils 0.13 Absolute Basophils 0.05 PT INR Sodium 141 Potassium 4.0 Chloride 105 Carbon Dioxide 29.1 Anion Gap 6.9 BUN 12 Creatinine 0.9 Estimated GFR/1.73 m2 >= 60.00 Glucose 185 H Calcium 9.1 Magnesium 1.8 Ferritin 43 Total Bilirubin 0.4 AST 19 ALT 32 Alkaline Phosphatase 108 Lactate Dehydrogenase 209 Troponin I 0.08 H* NT-Pro-B Natriuret Pep Total Protein 7.3 Albumin 3.6 Procalcitonin COVID-19 Source SARS-CoV-2 (PCR) Influenza Type A (PCR) Influenza Type B (PCR) RSV (PCR) 08/17/20 08/17/20 08/17/20 13:51 13:51 13:51 WBC RBC Hgb Hct MCV MCH MCHC RDW Plt Count MPV Immature Gran % Neutrophils % Lymphocytes % Monocytes % Eosinophils % Basophils % Nucleated RBC % Absolute Neutrophils Absolute Lymphocytes Absolute Monocytes Absolute Eosinophils Absolute Basophils PT 10.2 INR 1.0 Sodium Potassium Chloride Carbon Dioxide Anion Gap BUN Creatinine Estimated GFR/1.73 m2 Glucose Calcium Magnesium Ferritin Total Bilirubin AST ALT Alkaline Phosphatase Lactate Dehydrogenase Troponin I NT-Pro-B Natriuret Pep 84 Total Protein Albumin Procalcitonin < 0.1 COVID-19 Source SARS-CoV-2 (PCR) Influenza Type A (PCR) Influenza Type B (PCR) RSV (PCR) 08/17/20 08/17/20 15:52 16:55 WBC RBC Hgb Hct MCV MCH MCHC RDW Plt Count MPV Immature Gran % Neutrophils % Lymphocytes % Monocytes % Eosinophils % Basophils % Nucleated RBC % Absolute Neutrophils Absolute Lymphocytes Absolute Monocytes Absolute Eosinophils Absolute Basophils PT INR Sodium Potassium Chloride Carbon Dioxide Anion Gap BUN Creatinine Estimated GFR/1.73 m2 Glucose Calcium Magnesium Ferritin Total Bilirubin AST ALT Alkaline Phosphatase Lactate Dehydrogenase Troponin I 0.09 H* NT-Pro-B Natriuret Pep Total Protein Albumin Procalcitonin COVID-19 Source Nasopharynx SARS-CoV-2 (PCR) Negative Influenza Type A (PCR) Negative Influenza Type B (PCR) Negative RSV (PCR) Negative
[2020-08-17 21:07] LABS: Troponin I 0.09 ng/mL (<0.06)
[2020-08-17 22:13] VITALS: BP 103/49; PULSE 77; RESP 16; TEMP 36.7; O2SAT 96
[2020-08-18 00:01] LABS: Influenza A RNA Result Negative (Negative); Influenza B RNA Result Negative (Negative); RSV RNA Result Negative (Negative)
--- NOTE | 2020-08-18 00:47 | NUR.NOTE ---
Nursing Note: sent C M a referral for the smoking cennsations counselor for nicotine addiction [facility]
[2020-08-18 15:50] LABS: COVID-19 RT-PCR UVMMC Result Negative (Negative)
--- NOTE | 2020-08-24 13:11 | PDOC.ERCMPRO ---
- If Service Date Differs Date of service: 08/24/20 Time of Service: 13:11 Care Management Progress Note Alize was seen in the ED on 08/17/2020. At the request of ED provider, CM coordinated a referral to [facility] on 08/19/2020 to enlist their assistance with smoking cessation support.
== END 2020-08-17 22:10 | disposition home or self-care (01) ==
PROVIDERS: Registered Nurse Emergency; Emergency Provider Physician Assistant; PCP Family Medicine
DX: J02.8 Acute pharyngitis due to other specified organisms (principal); F41.8 Other specified anxiety disorders; J06.9 Acute upper respiratory infection, unspecified; R77.8 Other specified abnormalities of plasma proteins; Z03.818 Encounter for observation for suspected exposure to other biological agents ruled out
CPT/HCPCS: 36415; 36416; 80053; 82962; 84145; 87040; 87631; 87637; 87880; 93005; 96361; 96374; 96376; 99252; 99283; 99285; U0003; 71045; 82728; 83615; 83735; 83880; 84484; 85025; 85610; 87081; 93010; J2060; J2405

== ENCOUNTER 2020-08-20 00:46 | Outpatient (CLI) | payer MEDICAID, SELFPAY ==
--- NOTE | 2020-08-20 | DI.US_ITS ---
APPROVED REPORT EXAM: Comprehensive 2D, Doppler, and color-flow Echocardiogram Patient Location: Out-Patient Application Administrator: Arlen Coker RDCS (AE) Indications: Chest pain, SOB, Elevated Troponin Other Information Study Quality: Adequate Conclusion Left Ventricle : The left ventricle is normal size. The left ventricular systolic function is normal. The left ventricular ejection fraction is within the normal range. There is normal left ventricular wall thickness. There is normal LV segmental wall motion. The left ventricular diastolic function is normal. LVEF is 55%. Right Ventricle : The right ventricle is normal size. The right ventricular systolic function is norm al. Atria : The left atrium size is normal. The right atrium size is normal. Mitral Valve : The mitral valve is normal in structure. Mild mitral regurgitation. No evidence of radha ral valve stenosis. Great Vessels : The aortic root is normal in size. The ascending aorta is mildly dilated. IVC is norm al in size and collapses >50% with inspiration. See remainder of report for further details. Wall motion Left Ventricle The left ventricle is normal size. The left ventricular systolic function is normal. The left ventric ular ejection fraction is within the normal range. There is normal left ventricular wall thickness. T here is normal LV segmental wall motion. The left ventricular diastolic function is normal. There is no ventricular septal defect visualized. LVEF is 55%. Right Ventricle The right ventricle is normal size. The right ventricular systolic function is normal. Atria The left atrium size is normal. The right atrium size is normal. The interatrial septum is intact wit h no evidence for an atrial septal defect. Aortic Valve The aortic valve is normal in structure. Aortic valve is trileaflet. There is no aortic valvular sten osis. Trace aortic regurgitation. Mitral Valve The mitral valve is normal in structure. No evidence of mitral valve stenosis. Mild mitral regurgitat ion. Tricuspid Valve The tricuspid valve is normal in structure. There is no tricuspid valve stenosis. Trace tricuspid reg urgitation. Unable to assess PA pressure. Pulmonic Valve Pulmonic valve is not well visualized. There is no pulmonic valvular stenosis. There is no pulmonic v alvular regurgitation. Great Vessels The aortic root is normal in size. The ascending aorta is mildly dilated. IVC is normal in size and c ollapses >50% with inspiration. Pericardium There is no pericardial effusion. 2D Dimensions IVSD d PLAX 1.09 cm F: 0.6-1.0 LV Vol A2C d MOD 111.3 mL LVPW d PLAX 1.06 cm F: 0.6 - 1.0 LV Vol A4C d MOD 127.1 mL LVID d PLAX 5.25 cm F: 3.8 - 5.2 LA vol/ BSA A2C s A-L 26.2 mL/m2 LVDs 3.85 cm F: 2.2 - 3.5 LA vol/ BSA A4C s A-L 24.9 mL/m2 Ao Root d 2.68 cm F: 2.7 - 3.3 LA Vol/ BSA Biplane s A-L 26.5 mL/m2 RA Area A4C 15.45 cm2 LA Area A4C s MOD 18.70 cm2 RA Vol/ BSA A4C s A-L 19.5 mL/m2 LA Area A2C s MOD 19.90 cm2 Ao Asc Diam d 3.45 cm F: 2.3 - 3.1 LV EF A4C MOD 55.1 % LV EF Teichholz 51.6 % LV EF A2C MOD 59.0 % LVEF (Richardson's) 57.19 % F: 54 - 74 LV EF Biplane MOD 57.2 % LV Volume 90.27 mL F: 46 - 106 SV 69.83 mL LV Volume Index 43.19 mL/m2 F: 29 - 61 SV Index 33.42 mL/m2 LV Vol Biplane MOD 122.1 mL FS 26.55 % M-Mode TAPSE 2.43 cm (M/F) >1.7 LV Diastology MV E' medial 0.076 (>0.07 m/s) E/A Ratio 0.8 LV E/e MED 11.90 (<14) MV E Vmax 0.90 (0.4-1.3 m/s) MV E' lateral 0.117 (>0.1 m/s) MV A Vmax 1.15 (0.4-1.3 m/s) LV E/e LAT 7.65 (<14) MV E/A Ratio 0.76 MV E/E' medial 11.91 MV E/E' lateral 7.69 Aortic Valve LVOT Area 2.99 cm2 AoV Area Vmax 2.33 cm2 LVOT Vmax 1.68 m/s AoV Area/ BSA (Vmax) 1.11 cm2/m2 LVOT Mean Jeff. 1.14 m/s LAUREN Mean Jeff. 2.20 cm2 LVOT Peak Grad 11.3 mmHg LAUREN Mean Jeff. Index 1.05 cm2/m2 LVOT Mean Grad 6.0 mmHg LVOT VTI 0.363 m LVOT Diam s 1.95 cm AoV Vmax 2.16 m/s Velocity Ratio 0.77 AoV Mean Jeff. 1.56 m/s AoV Peak Grad 18.6 mmHg LVOT SV 108.69 mL AoV Mean Grad 10.7 mmHg AoV VTI 0.481 m AoV Area VTI 2.26 cm2 AoV Area/ BSA (VTI) 1.08 cm/m2 Mitral Valve MV DT 279 (160-240 msec) MV PHT 81 msec MV Area PHT 2.72 cm2 MV VTI 0.331 m MV VTI Annulus 0.331 m Pulmonary Valve PV Vmax 1.10 (0.5-1.5 m/s) RVOT Peak Gr. 2.48 mmHg PV Peak Grad 4.8 mmHg RVOT Mean Gr. 1.25 mmHg PV Mean Grad 2.8 mmHg RVOT VTI 0.172 m PV VTI 0.257 m RVOT Vmax 0.79 m/s
--- NOTE | 2020-08-20 11:00 | ETT_ITS ---
APPROVED REPORT Exam: Exercise Treadmill Patient Location: Out-Patient Room/Bed: Stress Nurse: Alba Burkett RN Ordering Provider:EUGENE PERKINS, Contact Number: [phone] BMI: 42.50 Baseline Rhythm: Sinus Rhythm Indications: Chest pain, CAD, SOB. Medical History Medical History: ASCVD, Anxiety, COPD, Depression, DM II, Heart murmur, HLD, HTN, Obesity, Pedal roe a, TITO w/ CPAP, Varicose veins, Asthma, Smoker Cardiac Medications: Nitro SL PRN, Amlodipine, Clopidogrel, Symbicort, Simvastatin, Omeprazole, Losar parkinson, Metformin, Albuterol sulfate inhaler PRN, Aspirin, Metoprolol succinate. , Allergies: Lisinopril, Azithomycin, Codeine, NSAIDS, Levofloxacin. Cardiac Risk Factors: HTN, Hyperlipidemia, Diabetes (non-insulin), Smoking (current), Asthma, COPD, C VD, Obesity Previous Cardiac Procedures: PCI, stents x4 to LCx Pretest Chest Pain Characteristics: No chest pain Exercise History: Sedentary Physical Disabilities: Lower back pain, cold symptoms. Lung Sounds: Bibasilar wheezes, CTA upper airways. Heart Sounds: Regular Stress Test Details Test: Exercise stress testing was performed using a modified Geo protocol. Rest Stress HR Resting HR Supine: 72 bpm Max Heart Rate (APMHR): 160 bpm Resting HR Standin bpm Target HR (85% APMHR): 136 bpm Max HR Achieved: 129 bpm % of APMHR: 80 Recovery HR: 87 bpm HR response to stress: Blunted HR response to stress Comment: BB held for 24 hours prior to testing. BP Resting BP Supine: 132/90 mmHg Resting BP Standin/90 mmHg Max BP: 190/80 mmHg Recovery BP: 150/88 mmHg BP response to stress: Normal blood pressure response to stress. ECG Resting ECG: Sinus Rhythm Ectopy: None. Stress ECG: Sinus Tachycardia ST Change: No significant ST segment changes noted Arrhythmia: None Recovery ECG: Sinus Rhythm Recovery ST Change: No significant ST segment changes noted Recovery Arrhythmia: 3 beat NSVT Clinical Reason for Termination: Dyspnea Stress Symptoms: Dyspnea, General Fatigue Exercise duration: 7 min19 sec Highest Stage Reached: Stage 3: 3.4 mph at 14% grade. Exercise capacity: 8.45 METs Flanagan Treadmill Score: 6 Rate Pressure Product: [id number] Stress ECG Conclusion 1. Patient exercised for 7 minutes (8 METS). Patient no symptoms suggestive of ischemia. 2. Patient had normal blood pressure and heart rate response to exercise. 3. There is no evidence of ischemia on ECG portion exam. Flanagan Treadmill Score is 6 which is Low risk. Stress Test Summary STAGE Time (mins) Speed (mph) Grade (%) HR BP SYMPTOMS METS Supine 72 132/90 Standing 77 148/90 1 3 1.7 10 106 4.6 2 6 2.5 12 120 186/84 7 3 9 3.4 14 129 10.2 1 min recovery 117 190/80 3 min recovery 94 174/82 6 min recovery 87 150/88
== END 2020-08-20 00:47 ==
LOC: DI 00:46
PROVIDERS: PCP Family Medicine; Visit Provider Physician Assistant
DX: I34.0 Nonrheumatic mitral (valve) insufficiency (principal); R07.9 Chest pain, unspecified; I25.10 Atherosclerotic heart disease of native coronary artery without angina pectoris; R06.02 Shortness of breath; I10 Essential (primary) hypertension; E78.5 Hyperlipidemia, unspecified; E11.9 Type 2 diabetes mellitus without complications; F17.210 Nicotine dependence, cigarettes, uncomplicated; J45.909 Unspecified asthma, uncomplicated; J44.9 Chronic obstructive pulmonary disease, unspecified; E66.9 Obesity, unspecified
CPT/HCPCS: 93016; 93018; 93306; 93017

== ENCOUNTER 2020-12-06 16:41 | Emergency (ER) | payer MEDICAID, SELFPAY ==
[2020-12-06] VITALS (11 sets, daily range): BP systolic 124–147; BP diastolic 75–83; PULSE 69–78; RESP 12–22; TEMP 37.1; O2SAT 94–97
[2020-12-06] MEDS: Normal Saline Flush 10 ML SYR IVP (16:50)
--- NOTE | 2020-12-06 16:50 | W.ED.GENAD ---
Discharge Plan Disposition Patient Disposition: HOME Condition: Improving Discharge Details Clinical Impression: Hyperglycemia Primary Care Provider: Luis E Narayan ED Provider: Cinda Doe Home Meds and New Rx's Prescriptions: New (DME) blood-glucose meter [FreeStyle Lite Meter] Kit See Rx Instructions .ROUTE .MEDSUPPLY Qty: 1 RF: 0 (DME) FreeStyle Lite Strips Strip See Rx Instructions .ROUTE .MEDSUPPLY Qty: 10 RF: 0 Continued budesonide-formoterol [Symbicort] 80-4.5 mcg/actuation HFA aerosol inhaler 2 puff Inhalation BID Qty: 3 RF: 11 (DME) Aerochamber MV spacer See Dose Instructions .Route .MEDSUPPLY Qty: 1 RF: 0 nicotine 14 mg/24 hr patch 24 hour 1 patch TD DAILY Qty: 21 RF: 2 nystatin 100,000 unit/mL suspension 500,000 unit PO QID Qty: 250 RF: 0 mometasone 50 mcg/actuation spray,non-aerosol 2 spray KUMAR DAILY Qty: 17 RF: 11 fluticasone propionate [Flonase Allergy Relief] 50 mcg/actuation spray,suspension 1 spray KUMAR BID PRN (Reason: nasal congestion) Qty: 9.9 RF: 3 loratadine [Claritin] 10 mg tablet 10 mg PO DAILY RF: 0 lorazepam 1 mg tablet 0.5 - 1 mg PO BID PRN (Reason: anxiety) Qty: 30 RF: 0 nitroglycerin 0.4 mg tablet, sublingual 0.4 mg Sublingual PRN Qty: 25 RF: 2 acetaminophen [Tylenol] 325 MG tablet 650 mg PO Q4H PRN RF: 0 CPAP RF: 0 (DME) lancets [OneTouch Delica Lancets] 1 EACH misc 1 ea Intradermal BID Qty: 200 RF: 4 (DME) OneTouch Ultra Test 1 EACH strip 1 strip Miscellaneous DAILY Qty: 100 RF: 3 amlodipine 5 mg tablet 5 mg PO DAILY Qty: 90 RF: 4 clopidogrel [Plavix] 75 mg tablet 75 mg PO DAILY Qty: 90 RF: 4 omeprazole 20 mg capsule,delayed release(DR/EC) 20 mg PO DAILY Qty: 90 RF: 3 Metoprolol Succinate 25 MG TAB.ER.24H 25 mg PO DAILY Qty: 90 RF: 4 simvastatin 10 mg tablet 10 mg PO DAILY Qty: 90 RF: 4 losartan [Cozaar] 100 mg tablet 100 mg PO DAILY Qty: 90 RF: 4 albuterol sulfate [Ventolin HFA] 90 mcg/actuation HFA aerosol inhaler 2 puff IH Q4H PRN (Reason: shortness of breath or wheezing) Qty: 8.5 RF: 11 aspirin 81 mg Tablet,Delayed Release (Dr/Ec) 81 mg PO DAILY RF: 0 lamotrigine 100 mg tablet 100 mg PO QAM RF: 0 buspirone 15 mg tablet 15 mg PO BID RF: 0 mitomycin 0.2 mg Kit 1 mg OPHTHALMIC (EYE) QID RF: 0 trazodone 50 mg tablet 100 mg PO HS PRN RF: 0 metformin 500 mg tablet 1,000 mg PO BID RF: 0 Discharge Instructions Instructions: Diabetic Hyperglycemia (ED), Diabetes and Nutrition (ED) Additional Instructions: Drink plenty of fluids and get plenty of rest. Continue your Metformin as directed. You will receive a call from care management regarding a follow-up appointment with a primary care doctor in your area for management of your diabetes. Return immediately to the emergency department if you develop any worsening or new concerning symptoms. Discharge Data Discharge Date/Time-TO BE ENTERED AT DEPARTURE: 12/06/20 18:18 Discharge Physician: Cinda Doe Medical Decision Making 60-year-old female with a history of hypertension, hyperlipidemia, diabetes presents for hyperglycemia at home today. She is asymptomatic. Vitals within normal limits. Patient appears comfortable and nontoxic. Blood sugar on arrival 217. Screening labs obtained on arrival and note a normal white blood cell count. Normal pH, bicarb. Glucose on metabolic panel 201. Urinalysis notes trace ketones but no obvious infection. Patient given a bolus of 500 cc normal saline and glucose rechecked and 169. Patient remains asymptomatic. She requested a new meter. Prescriptions for a new meter and test strips sent electronically to her pharmacy. She also feels that she has difficulty getting in with her primary care doctor at [facility] [place]. Patient was placed on care management to help arrange for follow-up appointment with the primary care doctor in her area to establish care and for management of her diabetes. Usual and customary return precautions given prior to discharge. Medical Records Medical records reviewed: Yes I reviewed the patient's medical records. Lab Data Lab results reviewed: Yes I reviewed the patient's lab results. Labs: Laboratory Tests Range/Units 12/06/20 12/06/20 12/06/20 17:00 17:00 17:00 WBC (4.4-10.8) 10^3/uL 7.37 RBC (3.93-5.22) 10^6/uL 4.64 Hgb (11.2-15.7) g/dL 13.2 Hct (36.0-46.0) % 39.4 MCV (80-95) fL 84.9 MCH (27.0-33.0) pg 28.4 MCHC (32.0-36.0) % 33.5 RDW (11.7-14.6) % 13.9 Plt Count (130-400) 10^3/uL 396 MPV (8.0-11.0) fL 9.2 Immature Gran % 0.3 Neutrophils % 52.5 Lymphocytes % 35.1 Monocytes % 8.8 Eosinophils % 2.6 Basophils % 0.7 Nucleated RBC % % 0 Absolute Neutrophils (1.2-6.7) 10^3/uL 3.87 Absolute Lymphocytes (1.2-3.4) 10^3/uL 2.59 Absolute Monocytes (0.1-0.8) 10^3/uL 0.65 Absolute Eosinophils (0.0-0.7) 10^3/uL 0.19 Absolute Basophils (0.0-0.2) 10^3/uL 0.05 VBG pH (7.31-7.41) 7.39 VBG pCO2 (41-51) mmHg 45 VBG pO2 mmHg 39 VBG HCO3 (23-28) mmol/L 27 VBG Total CO2 (24-29) mmol/L 25 VBG O2 Saturation % 79 VBG Base Excess (-2-3) mmol/L 2 Sodium (136-145) mmol/L 141 Potassium (3.5-5.1) mmol/L 4.0 Chloride (98-107) mmol/L 104 Carbon Dioxide (21.0-32.0) mmol/L 27.9 Anion Gap (3-11) mmol/L 9.1 BUN (7-18) mg/dL 16 Creatinine (0.55-1.02) mg/dL 1.1 H Estimated GFR/1.73 m2 (mL/min/1.73m2) 50.50 Glucose (74-106) mg/dL 201 H Calcium (8.5-10.1) mg/dL 9.0 Total Bilirubin (0.2-1.0) mg/dL 0.4 AST (15-37) U/L 23 ALT (14-59) U/L 38 Alkaline Phosphatase (46-116) U/L 103 Total Protein (6.4-8.2) g/dL 7.3 Albumin (3.4-5.0) g/dL 3.8 Urine Color (Yellow) Urine Clarity (Clear) Urine pH (5-8) Ur Specific [place] (1.005-1.025) Urine Protein (Negative) mg/dL Urine Ketones (Negative) mg/dL Urine Blood (Negative) Urine Nitrite (Negative) Urine Bilirubin (Negative) Urine Urobilinogen (Up TO 0.2) EU/dL Ur Leukocyte Esterase (Negative) Urine Glucose (Negative) mg/dL Range/Units 12/06/20 17:05 WBC (4.4-10.8) 10^3/uL RBC (3.93-5.22) 10^6/uL Hgb (11.2-15.7) g/dL Hct (36.0-46.0) % MCV (80-95) fL MCH (27.0-33.0) pg MCHC (32.0-36.0) % RDW (11.7-14.6) % Plt Count (130-400) 10^3/uL MPV (8.0-11.0) fL Immature Gran % Neutrophils % Lymphocytes % Monocytes % Eosinophils % Basophils % Nucleated RBC % % Absolute Neutrophils (1.2-6.7) 10^3/uL Absolute Lymphocytes (1.2-3.4) 10^3/uL Absolute Monocytes (0.1-0.8) 10^3/uL Absolute Eosinophils (0.0-0.7) 10^3/uL Absolute Basophils (0.0-0.2) 10^3/uL VBG pH (7.31-7.41) VBG pCO2 (41-51) mmHg VBG pO2 mmHg VBG HCO3 (23-28) mmol/L VBG Total CO2 (24-29) mmol/L VBG O2 Saturation % VBG Base Excess (-2-3) mmol/L Sodium (136-145) mmol/L Potassium (3.5-5.1) mmol/L Chloride (98-107) mmol/L Carbon Dioxide (21.0-32.0) mmol/L Anion Gap (3-11) mmol/L BUN (7-18) mg/dL Creatinine (0.55-1.02) mg/dL Estimated GFR/1.73 m2 (mL/min/1.73m2) Glucose (74-106) mg/dL Calcium (8.5-10.1) mg/dL Total Bilirubin (0.2-1.0) mg/dL AST (15-37) U/L ALT (14-59) U/L Alkaline Phosphatase (46-116) U/L Total Protein (6.4-8.2) g/dL Albumin (3.4-5.0) g/dL Urine Color (Yellow) Yellow Urine Clarity (Clear) Clear Urine pH (5-8) 5.5 Ur Specific [place] (1.005-1.025) >= 1.030 H Urine Protein (Negative) mg/dL Negative Urine Ketones (Negative) mg/dL Trace H Urine Blood (Negative) Negative Urine Nitrite (Negative) Negative Urine Bilirubin (Negative) Negative Urine Urobilinogen (Up TO 0.2) EU/dL 0.2 Ur Leukocyte Esterase (Negative) Negative Urine Glucose (Negative) mg/dL Negative HPI General Mode of arrival: ambulatory. Date/Time Provider Initiated Documentation: 12/06/20 16:42. Limitations to Documentation: no limitations. Information obtained by: patient. HPI Narrative: Patient is a 60-year-old female with a history of obesity, hypertension, hyperlipidemia, diabetes who presents for high blood sugar at home prior to arrival. Patient states she ate eggs and whole wheat toast and shortly after checked her sugar and it was 307. She states she is unsure if her meter is broken she states her sugars have been running higher than usual in the morning was in the 200s. She states she takes her Metformin regularly. She denies any symptoms of fever, nausea, vomiting, chest pain, shortness of breath or abdominal pain. Related Data Home Medications Medication Instructions Recorded Confirmed Cpap 10/24/12 03/06/19 acetaminophen [Tylenol] 650 mg PO Q4H PRN tab-cap 10/24/12 12/06/20 lancets [OneTouch Delica Lancets] #200 ea 12/15/12 03/06/19 OneTouch Ultra Test #100 strip 01/24/14 03/06/19 budesonide-formoterol HFA 80 2 puff INHALATION BID #3 gm 05/01/18 12/06/20 mcg-4.5 mcg/actuation aerosol inhaler inhalational spacing device #1 each 05/01/18 03/06/19 nitroglycerin 0.4 mg sublingual 0.4 mg SUBLINGUAL PRN #25 tab-cap 05/04/18 12/06/20 tablet amlodipine 5 mg tablet 5 mg PO DAILY #90 tab-cap 07/27/18 12/06/20 clopidogrel 75 mg tablet 75 mg PO DAILY #90 tab 07/27/18 12/06/20 omeprazole 20 mg capsule,delayed 20 mg PO DAILY #90 tab-cap 07/31/18 12/06/20 release simvastatin 10 mg PO DAILY #90 tab-cap 07/31/18 12/06/20 losartan 100 mg tablet 100 mg PO DAILY #90 tab-cap 12/27/18 12/06/20 mometasone 50 mcg/actuation nasal 2 spray KUMAR DAILY #17 gm 01/30/19 12/06/20 spray nicotine 14 mg/24 hr daily 1 patch TD DAILY #21 each 01/30/19 12/06/20 transdermal patch nystatin 100,000 unit/mL oral 500,000 unit PO QID #250 ml 01/30/19 12/06/20 suspension fluticasone propionate 50 1 spray KUMAR BID PRN #9.9 gm 02/03/19 12/06/20 mcg/actuation nasal spray,suspension loratadine 10 mg tablet 10 mg PO DAILY 02/03/19 12/06/20 lorazepam 1 mg tablet 0.5 - 1 mg PO BID PRN #30 tab 02/19/19 12/06/20 albuterol sulfate 90 mcg/actuation 2 puff IH Q4H PRN #8.5 gm 08/29/19 12/06/20 aerosol inhaler metformin 1,000 mg PO BID 09/12/19 12/06/20 aspirin 81 mg PO DAILY 08/17/20 12/06/20 buspirone 15 mg PO BID 08/17/20 12/06/20 lamotrigine 100 mg PO QAM 08/17/20 12/06/20 mitomycin 1 mg OPHTHALMIC (EYE) QID 08/17/20 12/06/20 trazodone 100 mg PO HS PRN 08/17/20 12/06/20 blood sugar diagnostic [FreeStyle #10 ea 12/06/20 Lite Strips] blood-glucose meter [FreeStyle #1 ea 12/06/20 Lite Meter] Previous Rx's Medication Instructions Recorded budesonide-formoterol HFA 80 2 puff INHALATION BID #3 gm 05/01/18 mcg-4.5 mcg/actuation aerosol inhaler inhalational spacing device #1 each 05/01/18 nitroglycerin 0.4 mg sublingual 0.4 mg SUBLINGUAL PRN #25 tab-cap 05/04/18 tablet amlodipine 5 mg tablet 5 mg PO DAILY #90 tab-cap 07/27/18 clopidogrel 75 mg tablet 75 mg PO DAILY #90 tab 07/27/18 omeprazole 20 mg capsule,delayed 20 mg PO DAILY #90 tab-cap 07/31/18 release simvastatin 10 mg PO DAILY #90 tab-cap 07/31/18 losartan 100 mg tablet 100 mg PO DAILY #90 tab-cap 12/27/18 mometasone 50 mcg/actuation nasal 2 spray KUMAR DAILY #17 gm 01/30/19 spray nicotine 14 mg/24 hr daily 1 patch TD DAILY #21 each 01/30/19 transdermal patch nystatin 100,000 unit/mL oral 500,000 unit PO QID #250 ml 01/30/19 suspension fluticasone propionate 50 1 spray KUMAR BID PRN #9.9 gm 02/03/19 mcg/actuation nasal spray,suspension lorazepam 1 mg tablet 0.5 - 1 mg PO BID PRN #30 tab 02/19/19 albuterol sulfate 90 mcg/actuation 2 puff IH Q4H PRN #8.5 gm 08/29/19 aerosol inhaler blood sugar diagnostic [FreeStyle #10 ea 12/06/20 Lite Strips] blood-glucose meter [FreeStyle #1 ea 12/06/20 Lite Meter] Allergies Allergy/AdvReac Type Severity Reaction Status Date / Time azithromycin AdvReac Mild Nausea Verified 12/06/20 16:59 codeine AdvReac Mild Nausea Verified 12/06/20 16:59 erythromycin base AdvReac Mild Nausea Verified 12/06/20 16:59 ibuprofen AdvReac Mild Nausea Verified 12/06/20 16:59 lisinopril AdvReac Mild cough Verified 12/06/20 16:59 NSAIDS (Non-Steroidal AdvReac Mild Nausea Verified 12/06/20 16:59 Anti-Inflamma General MONICA: 3 Review of Systems All systems reviewed & are unremarkable except as noted in HPI and below Constitutional Constitutional: Reports as per HPI, Denies chills and Denies fever(s) Eyes Eyes: Denies blurry vision ENT Ears, Nose, Mouth, and Throat: Denies dizziness, Denies sore throat and Denies throat swelling Cardiovascular Cardiovascular: Denies chest pain and Denies dyspnea Respiratory Respiratory: Denies cough and Denies dyspnea Gastrointestinal Gastrointestinal: Denies abdominal pain, Denies diarrhea and Denies vomiting Genitourinary Genitourinary: Denies hematuria and Denies dysuria Musculoskeletal Musculoskeletal: Denies back pain and Denies numbness Integumentary/Breasts Skin/Breast: Denies lesions and Denies rash Neurologic Neurologic: Denies dizziness, Denies localized weakness and Denies numbness Allergic/Immunologic Allergic/Immunologic: Denies throat swelling [facility] Medical History (Updated 12/06/20 @ 17:59 by Cinda Doe DO) Allergic rhinitis Anxiety Atherosclerotic cardiovascular disease Bipolar disorder Carne, oral Compliant with therapeutic regimen COPD (chronic obstructive pulmonary disease) Depression Diabetes type 2, controlled Heart murmur Hyperlipidemia Hypertension Incontinence Morbid obesity with BMI of 40.0-44.9, adult Pedal edema Plantar fasciitis of left foot Sleep apnea Stress incontinence in female Varicose veins of lower extremity Surgical History Arthroplasty of knee LEFT Cervical Procedure BX VALENTINO I section (~1981) Stent placement X 4 TO LCX Family History Mother Personal history of malignant neoplasm UTERINE CA; HYSTERECTOMY AGE 76 Uterine cancer Hysterectomy at 76 Father Heart disease Brother Diabetes Cancer Brother No problems noted. Brother No problems noted. Social History Smoking/Tobacco Use Status: Current every day Tobacco Type: cigarettes Smoking packs per day: 1 Smoking cigarettes per day: 20.0 Smoking risk assessment performed?: Yes Alcohol Intake: current Alcohol Intake frequency: holidays/special occasions only Alcohol type: beer and hard liquor Drug use: Occasionally Substance use type: marijuana Household members: significant other Housing: house Communication Needs: None Do you need help understanding health information?: Rarely Pets and animals: Yes Pets and animals: dog(s) Do you think of yourself as: straight/heterosexual Current gender identity: female What is your relationship status?: living with partner How often do you talk on the phone with friends or family?: three or more times per week How often do you get together with friends or relatives?: decline to answer How often do you attend zoroastrian or jainism services?: decline to answer Do you belong to any clubs or organized social groups?: no Panel score (0-1 are the most socially isolated patients): 2 What type of physical activity do you participate in: none Duration: < 15 minutes/day Frequency: daily Katerina/Denominational: none Special katerina needs: No Seatbelt use: sometimes Helmet use: Yes Helmet use: always Drive intox or ride w/intox deliver driver: No Do you feel safe at home: Yes Do you feel safe in your relationship?: Yes Exam Const General: cooperative and no acute distress HENMT Head: normal to inspection Ears: hearing grossly normal bilaterally and external ears normal Face and sinus: normal facial exam Mouth: oral mucosae normal Eyes General: appearance normal, both eyes and all related structures EOM: EOM intact bilaterally Neck Neck: normal visual inspection and No submandibular swelling Lymphatic: no lymphadenopathy noted Chest Chest: normal inspection of the chest and no tenderness Resp Effort & Inspection: normal respiratory effort and able to speak in complete sentences Auscultation: clear to auscultation bilaterally Cardio Rate: regular rate Rhythm: regular rhythm GI Inspection: normal to inspection and obesity Palpation: soft, not firm, not rigid and nontender Auscultation: normal bowel sounds Skin General skin exam: no rashes or lesions noted Neuro General: patient alert, patient awake and patient oriented x3 Cognition: normal cognition Speech: speech normal Motor: muscle tone normal throughout Sensory Exam: no sensory deficits noted Extrem General: normal to inspection, full ROM, capillary refill normal, no calf tenderness bilaterally and no edema Psych Appearance: grossly normal Mental Status: mental status grossly normal Speech and Movement: speech and movement normal Affect: normal affect
[2020-12-06] MEDS: Normal Saline 500 ML IV (17:05)
[2020-12-06 17:10] LABS: BE (Venous) 2 mmol/L (-2-3); HCO3 (Venous) 27 mmol/L (23-28); O2 Sat (Venous) 79 %; TCO2 (Venous) 25 mmol/L (24-29); pCO2 (Venous) 45 mmHg (41-51); pH (Venous) 7.39 (7.31-7.41); pO2 (Venous) 39 mmHg
[2020-12-06 17:14] LABS: Abs Immature Grans 0.02 10^3/uL (0.0-0.06); Absolute Basophil Count 0.05 10^3/uL (0.0-0.2); Absolute Eosinophil Count 0.19 10^3/uL (0.0-0.7); Absolute Lymphocyte Count 2.59 10^3/uL (1.2-3.4); Absolute Monocyte Count 0.65 10^3/uL (0.1-0.8); Absolute Neutrophil Count 3.87 10^3/uL (1.2-6.7); Basophils % 0.7; Eosinophils % 2.6; HCT 39.4 % (36.0-46.0); HGB 13.2 g/dL (11.2-15.7); Immature Grans % 0.3; Lymphocytes % 35.1; MCH 28.4 pg (27.0-33.0); MCHC 33.5 % (32.0-36.0); MCV 84.9 fL (80-95); MPV 9.2 fL (8.0-11.0); Monocytes % 8.8; Neutrophils % 52.5; Nucleated RBC 0 %; Platelet Count 396 10^3/uL (130-400); RBC 4.64 10^6/uL (3.93-5.22); RDW 13.9 % (11.7-14.6); RDW-SD 42.9 fL; WBC 7.37 10^3/uL (4.4-10.8)
[2020-12-06 17:17] LABS: Bilirubin Negative (Negative); Blood Negative (Negative); Clarity Clear (Clear); Glucose Negative (Negative); Ketones Trace mg/dL (Negative); Leukocyte Esterase Negative (Negative); Nitrite Negative (Negative); Specific Gravity >= 1.030 (1.005-1.025); Urobilinogen 0.2 EU/dL (Up TO 0.2); pH 5.5 (5-8)
[2020-12-06 17:24] LABS: ALT 38 U/L (14-59); AST 23 U/L (15-37); Albumin 3.8 g/dL (3.4-5.0); Alkaline Phosphatase 103 U/L (46-116); Anion Gap 9.1 mmol/L (3-11); BUN 16 mg/dL (7-18); Bilirubin, Total 0.4 mg/dL (0.2-1.0); CO2 27.9 mmol/L (21.0-32.0); CREATININE 1.1 mg/dL (0.55-1.02); Chloride 104 mmol/L (98-107); Glucose 201 mg/dL (74-106); Sodium 141 mmol/L (136-145); Total Protein 7.3 g/dL (6.4-8.2)
--- NOTE | 2020-12-06 18:07 | NUR.NOTE ---
Nursing Note: Referral given to Care Management to establish care/diabetes in 1 to 2 weeks with local PCP. Jud BARNEY
== END 2020-12-06 18:18 | disposition home or self-care (01) ==
PROVIDERS: Emergency Provider Physician Assistant; PCP Family Medicine
DX: E11.65 Type 2 diabetes mellitus with hyperglycemia (principal); Z79.84 Long term (current) use of oral hypoglycemic drugs
CPT/HCPCS: 36415; 36416; 80053; 82805; 82962; 96360; 99284; 81003; 85025

== ENCOUNTER 2021-01-04 09:10 | Emergency (ER) | payer MEDICAID, SELFPAY ==
[2021-01-04 09:17] VITALS: BP 147/82; PULSE 81; RESP 20; TEMP 36.7; O2SAT 96
[2021-01-04 09:24] VITALS: RESP 16
--- NOTE | 2021-01-04 09:50 | ED.GENADUL_ITS ---
Discharge Plan Disposition Patient Disposition: HOME Condition: Improving Discharge Details Clinical Impression: Acute bronchospasm, Seasonal allergies, History of COPD Primary Care Provider: Luis E Narayan ED Provider: Cinda Doe Home Meds and New Rx's Prescriptions: New amoxicillin-pot clavulanate [Augmentin] 875-125 mg tablet 1 tab PO BID 7 Days Qty: 14 RF: 0 albuterol sulfate 90 mcg/actuation aerosol powdr breath activated 2 inh IH Q6H PRN (Reason: shortness of breath or wheezing) Qty: 1 RF: 0 methylprednisolone [Medrol (Walt)] 4 mg tablets,dose pack See Rx Instructions .ROUTE .COMPLEX MDD per protocol 6 Days Qty: 21 RF: 0 Continued budesonide-formoterol [Symbicort] 80-4.5 mcg/actuation HFA aerosol inhaler 2 puff Inhalation BID Qty: 3 RF: 11 (DME) Aerochamber MV spacer See Dose Instructions .Route .MEDSUPPLY Qty: 1 RF: 0 nicotine 14 mg/24 hr patch 24 hour 1 patch TD DAILY Qty: 21 RF: 2 nystatin 100,000 unit/mL suspension 500,000 unit PO QID Qty: 250 RF: 0 mometasone 50 mcg/actuation spray,non-aerosol 2 spray KUMAR DAILY Qty: 17 RF: 11 fluticasone propionate [Flonase Allergy Relief] 50 mcg/actuation spray,suspension 1 spray KUMAR BID PRN (Reason: nasal congestion) Qty: 9.9 RF: 3 loratadine [Claritin] 10 mg tablet 10 mg PO DAILY RF: 0 lorazepam 1 mg tablet 0.5 - 1 mg PO BID PRN (Reason: anxiety) Qty: 30 RF: 0 nitroglycerin 0.4 mg tablet, sublingual 0.4 mg Sublingual PRN Qty: 25 RF: 2 acetaminophen [Tylenol] 325 MG tablet 650 mg PO Q4H PRN RF: 0 CPAP RF: 0 (DME) lancets [OneTouch Delica Lancets] 1 EACH misc 1 ea Intradermal BID Qty: 200 RF: 4 (DME) OneTouch Ultra Test 1 EACH strip 1 strip Miscellaneous DAILY Qty: 100 RF: 3 amlodipine 5 mg tablet 5 mg PO DAILY Qty: 90 RF: 4 clopidogrel [Plavix] 75 mg tablet 75 mg PO DAILY Qty: 90 RF: 4 omeprazole 20 mg capsule,delayed release(DR/EC) 20 mg PO DAILY Qty: 90 RF: 3 Metoprolol Succinate 25 MG TAB.ER.24H 25 mg PO DAILY Qty: 90 RF: 4 simvastatin 10 mg tablet 10 mg PO DAILY Qty: 90 RF: 4 losartan [Cozaar] 100 mg tablet 100 mg PO DAILY Qty: 90 RF: 4 albuterol sulfate [Ventolin HFA] 90 mcg/actuation HFA aerosol inhaler 2 puff IH Q4H PRN (Reason: shortness of breath or wheezing) Qty: 8.5 RF: 11 aspirin 81 mg Tablet,Delayed Release (Dr/Ec) 81 mg PO DAILY RF: 0 lamotrigine 100 mg tablet 100 mg PO QAM RF: 0 buspirone 15 mg tablet 15 mg PO BID RF: 0 trazodone 50 mg tablet 100 mg PO HS PRN RF: 0 metformin 500 mg tablet 1,000 mg PO BID RF: 0 (DME) blood-glucose meter [FreeStyle Lite Meter] Kit See Rx Instructions .ROUTE .MEDSUPPLY Qty: 1 RF: 0 (DME) FreeStyle Lite Strips Strip See Rx Instructions .ROUTE .MEDSUPPLY Qty: 10 RF: 0 Discharge Instructions Instructions: COPD (Chronic Obstructive Pulmonary Disease) (ED), Bronchospasm (ED) Additional Instructions: Drink plenty of fluids and get plenty of rest. Your prescriptions have been sent electronically to your pharmacy. Call the pharmacy to make sure your prescriptions are ready before pickup. Take the prescriptions as directed. If your symptoms do not improve or worsen over the next 1 to 2 days, you can start the antibiotics. You may need a stronger dose and longer duration of steroids if your symptoms do not improve or worsen. You will receive a call from care management regarding a follow-up appointment with your primary care doctor to establish care and for reevaluation. Return to the emergency department with any worsening or new concerning symptoms. Discharge Data Discharge Date/Time-TO BE ENTERED AT DEPARTURE: 01/04/21 11:45 Discharge Physician: Cinda Doe Medical Decision Making 60-year-old female with a history of COPD and possible asthma, diabetes, hypertension, hyperlipidemia, obesity presents for dry cough, shortness of breath and wheezing over the past few days which she feels has been triggered by contact with strong giovanna recently. She does also admit to contact with her grandchildren recently who have had colds and pneumonia. Patient is fully vaccinated. She denies any other known exposure to Covid. She appears comfortable and nontoxic. She has scattered wheezing throughout, worse in the left chest. Normal ENT exam. History and presentation does not appear consistent with ACS or PE. Patient states she has had what was thought to be a reaction with steroids in the past which affected her mental state and behavior. She states it was not confirmed that it was due to steroids but she is hesitant to take high-dose steroids at this time. She states she does want to treat her wheezing but would like a decreased dosing of steroids. She is agreeable to a dose of 40 mg prednisone now and will prescribe Medrol Dosepak. We will give a DuoNeb obtain a chest x-ray and reassess. Chest x-ray reviewed and negative. Pt reassessed and she feels much better and feels good to go home. It was discussed that she may not have effective treatment of her symptoms with the decreased dosing of her steroids but she is too concerned about the side effects. As she is a smoker with also give antibiotics if needed. Prescriptions sent electronically to her pharmacy. She requested a new pcp and she was placed on care management list to help arrange for a f/u appt and to establish care. Usual and customary return precautions given prior to discharge. Medical Records Medical records reviewed: Yes I reviewed the patient's medical records. Imaging Data Radiologic Study: Radiologist's impression: XR CHEST 2V PA LATERAL CLINICAL HISTORY: cough, sob, r/o acute disease. TECHNIQUE: 2D digital imaging was performed. COMPARISON: CR XR CHEST 2V PA LATERAL from 01/21/2019 CR XR PORTABLE CHEST AP from 08/17/2020 FINDINGS: Heart size is normal. The mediastinum is not widened. There is subsegmental platelike atelectasis in the lingular segment of the left lung. No confluent infiltrate. No pleural effusions. No pulmonary edema. IMPRESSION: There is subsegmental platelike atelectasis in the lingular segment of the left lung.No other pulmonary findings. HPI General Mode of arrival: ambulatory . Date/Time Provider Initiated Documentation: 01/04/21 09:21 . Limitations to Documentation: no limitations . Information obtained by: patient . HPI Narrative: Patient is a 60-year-old female with a history of COPD and possible asthma, diabetes, obesity, hypertension and hyperlipidemia presents for dry cough, shortness of breath and wheezing for the past 2 days. She states her symptoms started after coming in contact with her grandchildren have been sick recently with colds and pneumonia, and that her symptoms worsened after exposed to someone wearing strong cologne a few days ago. She states she has used her inhalers over the weekend with some relief. She states she did not use her inhaler this morning because I wanted you to see how I was breathing . She states her main complaint is a feeling of wheezing and tightness when breathing. She denies any anterior chest pain, sputum production, fever. Related Data Home Medications Medication Instructions Recorded Confirmed Cpap 10/24/12 03/06/19 acetaminophen [Tylenol] 650 mg PO Q4H PRN tab-cap 10/24/12 01/04/21 lancets [OneTouch Delica Lancets] #200 ea 12/15/12 03/06/19 Gini.netTouch Ultra Test #100 strip 01/24/14 03/06/19 budesonide-formoterol HFA 80 2 puff INHALATION BID #3 gm 05/01/18 01/04/21 mcg-4.5 mcg/actuation aerosol inhaler inhalational spacing device #1 each 05/01/18 03/06/19 nitroglycerin 0.4 mg sublingual 0.4 mg SUBLINGUAL PRN #25 tab-cap 05/04/18 01/04/21 tablet amlodipine 5 mg tablet 5 mg PO DAILY #90 tab-cap 07/27/18 01/04/21 clopidogrel 75 mg tablet 75 mg PO DAILY #90 tab 07/27/18 01/04/21 omeprazole 20 mg capsule,delayed 20 mg PO DAILY #90 tab-cap 07/31/18 01/04/21 release simvastatin 10 mg PO DAILY #90 tab-cap 07/31/18 01/04/21 losartan 100 mg tablet 100 mg PO DAILY #90 tab-cap 12/27/18 01/04/21 mometasone 50 mcg/actuation nasal 2 spray KUMAR DAILY #17 gm 01/30/19 12/06/20 spray nicotine 14 mg/24 hr daily 1 patch TD DAILY #21 each 01/30/19 01/04/21 transdermal patch nystatin 100,000 unit/mL oral 500,000 unit PO QID #250 ml 01/30/19 12/06/20 suspension fluticasone propionate 50 1 spray KUMAR BID PRN #9.9 gm 02/03/19 01/04/21 mcg/actuation nasal spray,suspension loratadine 10 mg tablet 10 mg PO DAILY 02/03/19 01/04/21 lorazepam 1 mg tablet 0.5 - 1 mg PO BID PRN #30 tab 02/19/19 01/04/21 albuterol sulfate 90 mcg/actuation 2 puff IH Q4H PRN #8.5 gm 08/29/19 01/04/21 aerosol inhaler metformin 1,000 mg PO BID 09/12/19 01/04/21 aspirin 81 mg PO DAILY 08/17/20 01/04/21 buspirone 15 mg PO BID 08/17/20 01/04/21 lamotrigine 100 mg PO QAM 08/17/20 01/04/21 trazodone 100 mg PO HS PRN 08/17/20 01/04/21 FreeStyle Lite Strips #10 ea 12/06/20 blood-glucose meter [FreeStyle #1 ea 12/06/20 Lite Meter] albuterol sulfate 2 inh IH Q6H PRN #1 each 01/04/21 amoxicillin-pot clavulanate 1 tab PO BID 7 Days #14 tab 01/04/21 [Augmentin] methylprednisolone [Medrol (Walt)] See Rx Instructions .ROUTE 01/04/21 .COMPLEX 6 Days #21 dose pk MDD per protocol Previous Rx's Medication Instructions Recorded budesonide-formoterol HFA 80 2 puff INHALATION BID #3 gm 05/01/18 mcg-4.5 mcg/actuation aerosol inhaler inhalational spacing device #1 each 05/01/18 nitroglycerin 0.4 mg sublingual 0.4 mg SUBLINGUAL PRN #25 tab-cap 05/04/18 tablet amlodipine 5 mg tablet 5 mg PO DAILY #90 tab-cap 07/27/18 clopidogrel 75 mg tablet 75 mg PO DAILY #90 tab 07/27/18 omeprazole 20 mg capsule,delayed 20 mg PO DAILY #90 tab-cap 07/31/18 release simvastatin 10 mg PO DAILY #90 tab-cap 07/31/18 losartan 100 mg tablet 100 mg PO DAILY #90 tab-cap 12/27/18 mometasone 50 mcg/actuation nasal 2 spray KUMAR DAILY #17 gm 01/30/19 spray nicotine 14 mg/24 hr daily 1 patch TD DAILY #21 each 01/30/19 transdermal patch nystatin 100,000 unit/mL oral 500,000 unit PO QID #250 ml 01/30/19 suspension fluticasone propionate 50 1 spray KUMAR BID PRN #9.9 gm 02/03/19 mcg/actuation nasal spray,suspension lorazepam 1 mg tablet 0.5 - 1 mg PO BID PRN #30 tab 02/19/19 albuterol sulfate 90 mcg/actuation 2 puff IH Q4H PRN #8.5 gm 08/29/19 aerosol inhaler FreeStyle Lite Strips #10 ea 12/06/20 blood-glucose meter [FreeStyle #1 ea 12/06/20 Lite Meter] albuterol sulfate 2 inh IH Q6H PRN #1 each 01/04/21 amoxicillin-pot clavulanate 1 tab PO BID 7 Days #14 tab 01/04/21 [Augmentin] methylprednisolone [Medrol (Walt)] See Rx Instructions .ROUTE 01/04/21 .COMPLEX 6 Days #21 dose pk MDD per protocol Allergies Allergy/AdvReac Type Severity Reaction Status Date / Time azithromycin AdvReac Mild Nausea Verified 01/04/21 09:19 codeine AdvReac Mild Nausea Verified 01/04/21 09:19 erythromycin base AdvReac Mild Nausea Verified 01/04/21 09:19 ibuprofen AdvReac Mild Nausea Verified 01/04/21 09:19 lisinopril AdvReac Mild cough Verified 01/04/21 09:19 NSAIDS (Non-Steroidal AdvReac Mild Nausea Verified 01/04/21 09:19 Anti-Inflamma General Stated Complaint: SOB MONICA: 3 Review of Systems All systems reviewed & are unremarkable except as noted in HPI and below Constitutional Constitutional: Reports as per HPI, Denies chills and Denies fever(s) Eyes Eyes: Denies blurry vision ENT Ears, Nose, Mouth, and Throat: Denies dizziness, Denies sore throat and Denies throat swelling Cardiovascular Cardiovascular: Denies chest pain and Reports dyspnea Respiratory Respiratory: Reports cough and Reports dyspnea Gastrointestinal Gastrointestinal: Denies abdominal pain, Denies diarrhea and Denies vomiting Genitourinary Genitourinary: Denies hematuria and Denies dysuria Musculoskeletal Musculoskeletal: Denies back pain and Denies numbness Integumentary/Breasts Skin/Breast: Denies lesions and Denies rash Neurologic Neurologic: Denies dizziness, Denies localized weakness and Denies numbness Allergic/Immunologic Allergic/Immunologic: Denies throat swelling [facility] Medical History (Updated 01/04/21 @ 11:03 by Cinda Doe DO) Allergic rhinitis Anxiety Atherosclerotic cardiovascular disease Bipolar disorder Caren, oral Compliant with therapeutic regimen COPD (chronic obstructive pulmonary disease) Depression Diabetes type 2, controlled Heart murmur Hyperlipidemia Hypertension Incontinence Morbid obesity with BMI of 40.0-44.9, adult Pedal edema Plantar fasciitis of left foot Sleep apnea Stress incontinence in female Varicose veins of lower extremity Surgical History Arthroplasty of knee LEFT Cervical Procedure BX VALENTINO I section (~1981) Stent placement X 4 TO LCX Family History Mother Personal history of malignant neoplasm UTERINE CA; HYSTERECTOMY AGE 76 Uterine cancer Hysterectomy at 76 Father Heart disease Brother Diabetes Cancer Brother No problems noted. Brother No problems noted. Social History Smoking/Tobacco Use Status: Current every day Tobacco Type: cigarettes Smoking packs per day: 1 Smoking cigarettes per day: 20.0 Smoking risk assessment performed?: Yes Alcohol Intake: former Drug use: Never Substance use type: does not use Household members: significant other Housing: house Communication Needs: None Do you need help understanding health information?: Rarely Pets and animals: Yes Pets and animals: dog(s) Do you think of yourself as: straight/heterosexual Current gender identity: female What is your relationship status?: living with partner How often do you talk on the phone with friends or family?: three or more times per week How often do you get together with friends or relatives?: decline to answer How often do you attend religious or scientology services?: decline to answer Do you belong to any clubs or organized social groups?: no Panel score (0-1 are the most socially isolated patients): 2 What type of physical activity do you participate in: none Duration: < 15 minutes/day Frequency: daily Katerina/Yazdanism: none Special katerina needs: No Seatbelt use: sometimes Helmet use: Yes Helmet use: always Drive intox or ride w/intox armor reconnaissance vehicle driver: No Do you feel safe at home: Yes Do you feel safe in your relationship?: Yes Exam Const General: cooperative and no acute distress HENMT Head: normal to inspection Face and sinus: normal facial exam Eyes General: appearance normal, both eyes and all related structures EOM: EOM intact bilaterally Neck Neck: normal visual inspection and No submandibular swelling Lymphatic: no lymphadenopathy noted Chest Chest: normal inspection of the chest and no tenderness Resp Effort & Inspection: normal respiratory effort and able to speak in complete sentences Auscultation: wheezes scattered wheezes (increased in L chest) Cardio Rate: regular rate Rhythm: regular rhythm Skin General skin exam: no rashes or lesions noted Neuro General: patient alert, patient awake and patient oriented x3 Cognition: normal cognition Speech: speech normal Motor: muscle tone normal throughout Sensory Exam: no sensory deficits noted Extrem General: normal to inspection, full ROM, capillary refill normal, no calf tenderness bilaterally and no edema Psych Appearance: grossly normal Mental Status: mental status grossly normal Speech and Movement: speech and movement normal Affect: normal affect Course Vital Signs Vital signs: Vital Signs Temperature 98.1 F 01/04/21 09:17 Pulse 81 01/04/21 09:17 Respiratory Rate 20 01/04/21 09:17 Blood Pressure 147/82 H 01/04/21 09:17 Pulse Oximetry 96 01/04/21 09:17 Temperature 98.1 F 01/04/21 09:17 Temperature Source Skin 01/04/21 09:17 Pulse 81 01/04/21 09:17 Respiratory Rate 16 01/04/21 09:24 Respiratory Effort Non-Labored 01/04/21 09:24 Respiratory Depth Normal 01/04/21 09:24 Respiratory Pattern Normal 01/04/21 09:24 Blood Pressure 147/82 H 01/04/21 09:17 Blood Pressure Position Sitting 01/04/21 09:17 Pulse Oximetry 96 01/04/21 09:17 Oxygen Delivery Method Room Air 01/04/21 09:17 Oxygen Flow Rate 0 01/04/21 09:17 Pain Level 0 01/04/21 09:17
[2021-01-04] MEDS: predniSONE 20 MG TAB 40 MG PO (09:57)
--- NOTE | 2021-01-04 10:10 | DI.RAD_ITS ---
Exam(s) XR CHEST 2V PA LATERAL EXAM: XR CHEST 2V PA LATERAL CLINICAL HISTORY: cough, sob, r/o acute disease. TECHNIQUE: 2D digital imaging was performed. COMPARISON: CR XR CHEST 2V PA LATERAL from 01/21/2019 CR XR PORTABLE CHEST AP from 08/17/2020 FINDINGS: Heart size is normal. The mediastinum is not widened. There is subsegmental platelike atelectasis in the lingular segment of the left lung. No confluent i nfiltrate. No pleural effusions. No pulmonary edema. IMPRESSION: There is subsegmental platelike atelectasis in the lingular segment of the left lung.No other pulmona ry findings. DATA REPOSITORY: RADIATION DOSE DELIVERED:
[2021-01-04 10:19] VITALS: RESP 4
[2021-01-04] MEDS: Albuterol/Ipratropium 3 ML UPD VIAL UPD (10:19)
--- NOTE | 2021-01-04 11:06 | NUR.NOTE ---
Nursing Note: referral to cm
[2021-01-04 11:16] VITALS: BP 113/75; PULSE 79; RESP 18; O2SAT 93
== END 2021-01-04 11:45 | disposition home or self-care (01) ==
PROVIDERS: Emergency Provider Physician Assistant; PCP Family Medicine
DX: J98.01 Acute bronchospasm (principal); J30.2 Other seasonal allergic rhinitis; J44.9 Chronic obstructive pulmonary disease, unspecified; F17.210 Nicotine dependence, cigarettes, uncomplicated
CPT/HCPCS: 94640; 99283; 71046; 99285; J7512; J7620

== ENCOUNTER 2021-02-11 16:26 | Emergency (ER) | payer MEDICAID, SELFPAY ==
[2021-02-11 16:43] VITALS: BP 132/94; PULSE 89; RESP 18; TEMP 36.6; O2SAT 100
[2021-02-11 17:26] LABS: Bilirubin Negative (Negative); Blood Negative (Negative); Clarity Clear (Clear); Glucose Negative (Negative); Ketones Negative (Negative); Leukocyte Esterase Negative (Negative); Nitrite Negative (Negative); Specific Gravity <= 1.005 (1.005-1.025); Urobilinogen 0.2 EU/dL (Up TO 0.2); pH 5.5 (5-8)
[2021-02-11 17:32] LABS: Abs Immature Grans 0.03 10^3/uL (0.0-0.06); Absolute Basophil Count 0.07 10^3/uL (0.0-0.2); Absolute Eosinophil Count 0.14 10^3/uL (0.0-0.7); Absolute Lymphocyte Count 2.29 10^3/uL (1.2-3.4); Absolute Monocyte Count 0.74 10^3/uL (0.1-0.8); Absolute Neutrophil Count 5.71 10^3/uL (1.2-6.7); Basophils % 0.8; Eosinophils % 1.6; HCT 42.3 % (36.0-46.0); HGB 14.1 g/dL (11.2-15.7); Immature Grans % 0.3; Lymphocytes % 25.5; MCH 28.9 pg (27.0-33.0); MCHC 33.3 % (32.0-36.0); MCV 86.7 fL (80-95); MPV 9.2 fL (8.0-11.0); Monocytes % 8.2; Neutrophils % 63.6; Nucleated RBC 0 %; Platelet Count 386 10^3/uL (130-400); RBC 4.88 10^6/uL (3.93-5.22); RDW 14.1 % (11.7-14.6); RDW-SD 45.3 fL; WBC 8.98 10^3/uL (4.4-10.8)
[2021-02-11 17:44] LABS: ALT 39 U/L (14-59); AST 21 U/L (15-37); Albumin 4.1 g/dL (3.4-5.0); Alkaline Phosphatase 105 U/L (46-116); Anion Gap 9.2 mmol/L (3-11); BUN 13 mg/dL (7-18); Bilirubin, Total 0.4 mg/dL (0.2-1.0); CO2 27.8 mmol/L (21.0-32.0); CREATININE 0.8 mg/dL (0.55-1.02); Calcium 9.4 mg/dL (8.5-10.1); Chloride 105 mmol/L (98-107); Glucose 149 mg/dL (74-106); Lipase 145 U/L (73-393); Magnesium 1.8 mg/dL (1.8-2.4); Potassium 4.2 mmol/L (3.5-5.1); Sodium 142 mmol/L (136-145); Total Protein 7.7 g/dL (6.4-8.2)
--- NOTE | 2021-02-11 17:45 | RT.EKG_ITS ---
APPROVED REPORT Exam: Resting ECG Reason for Exam: Midepigastric pain Patient Location: E HR:73 bpm ECG Measurements Heart Rate 73 AXIS NJ 180 P 33 QRSd 92 QRS 3 QT 389 T 31 QTc 430 Conclusion Sinus rhythm...normal P axis, V-rate 60- 99 Left ventricular hypertrophy...multiple voltage criteria
--- NOTE | 2021-02-11 17:51 | ED.GENADUL_ITS ---
Discharge Plan Disposition Patient Disposition: HOME Condition: Stable Discharge Details Clinical Impression: Fatty liver, Diverticulosis, Constipation Primary Care Provider: Luis E Narayan ED Provider: Radha Tariq Home Meds and New Rx's Prescriptions: New sucralfate [Carafate] 100 mg/mL suspension 10 ml PO QACHS Qty: 400 RF: 0 No Action budesonide-formoterol [Symbicort] 80-4.5 mcg/actuation HFA aerosol inhaler 2 puff Inhalation BID Qty: 3 RF: 11 (DME) Aerochamber MV spacer See Dose Instructions .Route .MEDSUPPLY Qty: 1 RF: 0 nicotine 14 mg/24 hr patch 24 hour 1 patch TD DAILY Qty: 21 RF: 2 nystatin 100,000 unit/mL suspension 500,000 unit PO QID Qty: 250 RF: 0 mometasone 50 mcg/actuation spray,non-aerosol 2 spray KUMAR DAILY Qty: 17 RF: 11 fluticasone propionate [Flonase Allergy Relief] 50 mcg/actuation spray,suspension 1 spray KUMAR BID PRN (Reason: nasal congestion) Qty: 9.9 RF: 3 loratadine [Claritin] 10 mg tablet 10 mg PO DAILY RF: 0 lorazepam 1 mg tablet 0.5 - 1 mg PO BID PRN (Reason: anxiety) Qty: 30 RF: 0 nitroglycerin 0.4 mg tablet, sublingual 0.4 mg Sublingual PRN Qty: 25 RF: 2 acetaminophen [Tylenol] 325 MG tablet 650 mg PO Q4H PRN RF: 0 CPAP RF: 0 (DME) lancets [OneTouch Delica Lancets] 1 EACH misc 1 ea Intradermal BID Qty: 200 RF: 4 (DME) OneTouch Ultra Test 1 EACH strip 1 strip Miscellaneous DAILY Qty: 100 RF: 3 amlodipine 5 mg tablet 5 mg PO DAILY Qty: 90 RF: 4 clopidogrel [Plavix] 75 mg tablet 75 mg PO DAILY Qty: 90 RF: 4 omeprazole 20 mg capsule,delayed release(DR/EC) 20 mg PO DAILY Qty: 90 RF: 3 Metoprolol Succinate 25 MG TAB.ER.24H 25 mg PO DAILY Qty: 90 RF: 4 simvastatin 10 mg tablet 10 mg PO DAILY Qty: 90 RF: 4 losartan [Cozaar] 100 mg tablet 100 mg PO DAILY Qty: 90 RF: 4 albuterol sulfate [Ventolin HFA] 90 mcg/actuation HFA aerosol inhaler 2 puff IH Q4H PRN (Reason: shortness of breath or wheezing) Qty: 8.5 RF: 11 aspirin 81 mg Tablet,Delayed Release (Dr/Ec) 81 mg PO DAILY RF: 0 lamotrigine 100 mg tablet 100 mg PO QAM RF: 0 buspirone 15 mg tablet 15 mg PO BID RF: 0 trazodone 50 mg tablet 100 mg PO HS PRN RF: 0 albuterol sulfate 90 mcg/actuation aerosol powdr breath activated 2 inh IH Q6H PRN (Reason: shortness of breath or wheezing) Qty: 1 RF: 0 metformin 500 mg tablet 1,000 mg PO BID RF: 0 (DME) blood-glucose meter [FreeStyle Lite Meter] Kit See Rx Instructions .ROUTE .MEDSUPPLY Qty: 1 RF: 0 (DME) FreeStyle Lite Strips Strip See Rx Instructions .ROUTE .MEDSUPPLY Qty: 10 RF: 0 Discharge Instructions Instructions: Constipation (ED), Diverticulosis (ED), Non-Alcoholic Fatty Liver Disease (ED) Additional Instructions: Use Carafate before meals and at bedtime as directed. You may also try MiraLAX in the morning with 8 ounces of fluid. Follow up with primary care provider in 3-5 days. Return to ED sooner if any worsening or concerns. Increase oral fluids. Referrals: Luis E Narayan [Primary Care Provider] - Kelsey Pacheco DO [OSTEOPATHIC DOCTOR] - 1 week Discharge Data Discharge Date/Time-TO BE ENTERED AT DEPARTURE: 02/11/21 20:10 Medical Decision Making 60-year-old female presents to the ER with chief complaint of abdominal distention, swelling which has been worsening over the last 2 weeks. Associated with explosive diarrhea this morning. She does report alternating between constipation and diarrhea. Denies any nausea vomiting. Pain is also radiating up into her midepigastrium area and causing some shortness of breath. She called Dr. Coon's office today and was instructed to return come here for further evaluation. She does have a past medical history of anxiety, bipolar, COPD, depression, type 2 diabetes, hyperlipidemia, hypertension surgical history includes and stent placement. She also reports to me that she has had a mass taken off of her left kidney. She is a daily smoker. Denies any alcohol. Denies any hematochezia or blood in her stool. Labs show no leukocytosis CBC within normal limits, CMP largely within normal limits glucose 149 lipase 145 urinalysis shows no evidence for UTI. CT results as noted below. FINDINGS: Liver: Fatty, enlarged liver. Gallbladder and bile ducts: Normal. No calcified stones. No ductal dilation. Pancreas: Normal. No ductal dilation. Spleen: Normal. No splenomegaly. Adrenal glands: Low-density left adrenal nodule 12 mm. Kidneys and ureters: Left renal mid pole scarring. Stomach and bowel: Moderate fecal retention pattern. Diverticulosis noted without acute diverticulitis. Appendix: The appendix is well seen, within normal limits. Intraperitoneal space: Unremarkable. No free air. No significant fluid collection. Vasculature: Coronary artery calcifications/stents identified. Moderate atherosclerotic change seen in the vasculature. Lymph nodes: Unremarkable. No enlarged lymph nodes. Urinary bladder: Unremarkable as visualized. Reproductive: Unremarkable as visualized. Bones/joints: Mild to moderate lumbar spondylosis. Soft tissues: There is a small, fat containing right inguinal hernia. IMPRESSION: No acute abnormality seen to account for symptoms. Thank you for allowing us to participate in the care of your patient. Discussed CT results with patient and home care. Patient was given Carafate here in the department and prescription written. Discussed follow-up with general surgery and/or PCP discussed gentle laxative such as MiraLAX. Patient verbalized understanding. This text was generated using i[employer] dictation system, please disregard any oddities of phrase or misspellings. HPI General Mode of arrival: ambulatory . Date/Time Provider Initiated Documentation: 02/11/21 17:01 . Limitations to Documentation: no limitations . Information obtained by: patient, RN notes reviewed and old records reviewed . HPI Narrative: 60-year-old female presents to the ER with chief complaint of abdominal distention, swelling which has been worsening over the last 2 weeks. Associated with explosive diarrhea this morning. She does report alternating between constipation and diarrhea. Denies any nausea vomiting. Pain is also radiating up into her midepigastrium area and causing some shortness of breath. She called Dr. Coon's office today and was instructed to return come here for further evaluation. She does have a past medical history of anxiety, bipolar, COPD, depression, type 2 diabetes, hyperlipidemia, hypertension surgical history includes and stent placement. She also reports to me that she has had a mass taken off of her left kidney. She is a daily smoker. Denies any alcohol. Denies any hematochezia or blood in her stool. Related Data Home Medications Medication Instructions Recorded Confirmed Cpap 10/24/12 03/06/19 acetaminophen [Tylenol] 650 mg PO Q4H PRN tab-cap 10/24/12 02/11/21 lancets [OneTouch Delica Lancets] #200 ea 12/15/12 02/11/21 OneTouch Ultra Test #100 strip 01/24/14 02/11/21 budesonide-formoterol HFA 80 2 puff INHALATION BID #3 gm 05/01/18 02/11/21 mcg-4.5 mcg/actuation aerosol inhaler inhalational spacing device #1 each 05/01/18 02/11/21 nitroglycerin 0.4 mg sublingual 0.4 mg SUBLINGUAL PRN #25 tab-cap 05/04/18 02/11/21 tablet amlodipine 5 mg tablet 5 mg PO DAILY #90 tab-cap 07/27/18 02/11/21 clopidogrel 75 mg tablet 75 mg PO DAILY #90 tab 07/27/18 02/11/21 omeprazole 20 mg capsule,delayed 20 mg PO DAILY #90 tab-cap 07/31/18 02/11/21 release simvastatin 10 mg PO DAILY #90 tab-cap 07/31/18 02/11/21 losartan 100 mg tablet 100 mg PO DAILY #90 tab-cap 12/27/18 02/11/21 mometasone 50 mcg/actuation nasal 2 spray KUMAR DAILY #17 gm 01/30/19 02/11/21 spray nicotine 14 mg/24 hr daily 1 patch TD DAILY #21 each 01/30/19 02/11/21 transdermal patch nystatin 100,000 unit/mL oral 500,000 unit PO QID #250 ml 01/30/19 02/11/21 suspension fluticasone propionate 50 1 spray KUMAR BID PRN #9.9 gm 02/03/19 02/11/21 mcg/actuation nasal spray,suspension loratadine 10 mg tablet 10 mg PO DAILY 02/03/19 02/11/21 lorazepam 1 mg tablet 0.5 - 1 mg PO BID PRN #30 tab 02/19/19 02/11/21 albuterol sulfate 90 mcg/actuation 2 puff IH Q4H PRN #8.5 gm 08/29/19 02/11/21 aerosol inhaler metformin 1,000 mg PO BID 09/12/19 02/11/21 aspirin 81 mg PO DAILY 08/17/20 02/11/21 buspirone 15 mg PO BID 08/17/20 02/11/21 lamotrigine 100 mg PO QAM 08/17/20 02/11/21 trazodone 100 mg PO HS PRN 08/17/20 02/11/21 FreeStyle Lite Strips #10 ea 12/06/20 02/11/21 blood-glucose meter [FreeStyle #1 ea 12/06/20 02/11/21 Lite Meter] albuterol sulfate 2 inh IH Q6H PRN #1 each 01/04/21 02/11/21 sucralfate [Carafate] 10 ml PO QACHS #400 ml 02/11/21 Previous Rx's Medication Instructions Recorded budesonide-formoterol HFA 80 2 puff INHALATION BID #3 gm 05/01/18 mcg-4.5 mcg/actuation aerosol inhaler inhalational spacing device #1 each 05/01/18 nitroglycerin 0.4 mg sublingual 0.4 mg SUBLINGUAL PRN #25 tab-cap 05/04/18 tablet amlodipine 5 mg tablet 5 mg PO DAILY #90 tab-cap 07/27/18 clopidogrel 75 mg tablet 75 mg PO DAILY #90 tab 07/27/18 omeprazole 20 mg capsule,delayed 20 mg PO DAILY #90 tab-cap 07/31/18 release simvastatin 10 mg PO DAILY #90 tab-cap 07/31/18 losartan 100 mg tablet 100 mg PO DAILY #90 tab-cap 12/27/18 mometasone 50 mcg/actuation nasal 2 spray KUMAR DAILY #17 gm 01/30/19 spray nicotine 14 mg/24 hr daily 1 patch TD DAILY #21 each 01/30/19 transdermal patch nystatin 100,000 unit/mL oral 500,000 unit PO QID #250 ml 01/30/19 suspension fluticasone propionate 50 1 spray KUMAR BID PRN #9.9 gm 02/03/19 mcg/actuation nasal spray,suspension lorazepam 1 mg tablet 0.5 - 1 mg PO BID PRN #30 tab 02/19/19 albuterol sulfate 90 mcg/actuation 2 puff IH Q4H PRN #8.5 gm 08/29/19 aerosol inhaler FreeStyle Lite Strips #10 ea 12/06/20 blood-glucose meter [FreeStyle #1 ea 12/06/20 Lite Meter] albuterol sulfate 2 inh IH Q6H PRN #1 each 01/04/21 sucralfate [Carafate] 10 ml PO QACHS #400 ml 02/11/21 Allergies Allergy/AdvReac Type Severity Reaction Status Date / Time azithromycin AdvReac Mild Nausea Verified 02/11/21 16:50 codeine AdvReac Mild Nausea Verified 02/11/21 16:50 erythromycin base AdvReac Mild Nausea Verified 02/11/21 16:50 ibuprofen AdvReac Mild Nausea Verified 02/11/21 16:50 lisinopril AdvReac Mild cough Verified 02/11/21 16:50 NSAIDS (Non-Steroidal AdvReac Mild Nausea Verified 02/11/21 16:50 Anti-Inflamma General Stated Complaint: Abd Prob MONICA: 3 Review of Systems Narrative: Constitutional: Negative for weight loss, alert and oriented, well groomed, obese body habitus, appears uncomfortable. HEENT: Denies trauma, headaches, blurry vision, nasal discharge, sore throat, trouble swallowing. Chest: Denies chest pain, palpitations, irregular rhythm, hypertension. Respiratory: Denies Shortness of breath, cough, hemoptysis. GI: Denies vomiting, positive abdominal pain, bloating, alternating diarrhea and constipation positive midepigastric pain. : Denies dysuria, hematuria, flank pain, rectal bleeding. Neuro: Denies dizziness, blurry vision, weakness, syncope, headache or facial numbness. Hematologic: Denies easy bruising, intolerance to heat or cold, hair loss. [facility] Medical History (Updated 02/11/21 @ 19:55 by Radha Tariq) Allergic rhinitis Anxiety Atherosclerotic cardiovascular disease Bipolar disorder Caren, oral Compliant with therapeutic regimen COPD (chronic obstructive pulmonary disease) Depression Diabetes type 2, controlled Heart murmur Hyperlipidemia Hypertension Incontinence Morbid obesity with BMI of 40.0-44.9, adult Pedal edema Plantar fasciitis of left foot Sleep apnea Stress incontinence in female Varicose veins of lower extremity Surgical History Arthroplasty of knee LEFT Cervical Procedure BX VALENTINO I section (~1981) Stent placement X 4 TO LCX Family History Mother Personal history of malignant neoplasm UTERINE CA; HYSTERECTOMY AGE 76 Uterine cancer Hysterectomy at 76 Father Heart disease Brother Diabetes Cancer Brother No problems noted. Brother No problems noted. Social History Smoking/Tobacco Use Status: Current every day Tobacco Type: cigarettes Smoking packs per day: 1 Smoking cigarettes per day: 20.0 Smoking risk assessment performed?: Yes Alcohol Intake: former Drug use: Never Substance use type: does not use Household members: significant other Housing: house Communication Needs: None Do you need help understanding health information?: Rarely Pets and animals: Yes Pets and animals: dog(s) Do you think of yourself as: straight/heterosexual Current gender identity: female What is your relationship status?: living with partner How often do you talk on the phone with friends or family?: three or more times per week How often do you get together with friends or relatives?: decline to answer How often do you attend baptism or jewish services?: decline to answer Do you belong to any clubs or organized social groups?: no Panel score (0-1 are the most socially isolated patients): 2 What type of physical activity do you participate in: none Duration: < 15 minutes/day Frequency: daily Katerina/Mormon: none Special katerina needs: No Seatbelt use: sometimes Helmet use: Yes Helmet use: always Drive intox or ride w/intox driver utility worker: No Do you feel safe at home: Yes Do you feel safe in your relationship?: Yes Exam Narrative Exam Narrative: Constitutional: Alert and oriented x3. Appears stated age. Normal body habitus. Head: Normocephalic, no trauma. Eyes: Pupils PERRLA, Red reflex noted, EOM's intact. Eyelids symmetrical without lesions, discharge, or swelling. ENT: Bilateral TM's WNL, External ear normal to inspection, no mastoid TTP, swelling, or erythema, Nasal turbinates WNL, no nasal discharge. Normal dentition, Posterior pharynx WNL, no exudate. Chest: RRR, Normal S1, S2, distal pulses intact. Resp: Lungs clear to auscultation bilaterally, no wheezes, rales, or rhonchi. Abdomen: Appears distended, no masses palpated no hepatomegaly tinkling bowel sounds noted all 4 quadrants. Musculoskeletal: Normal gait, 5/5 strength to all four extremities. Skin: No suspicious rashes or lesions. Capillary refill less than 2 sec. Neurologic: Cranial nerves II-XII intact. Alert and oriented x 3. DTR's intact. Hematologic/Lymphatic: No ecchymosis, no lymphadenopathy. Course Vital Signs Vital signs: Vital Signs Temperature 36.6 C 02/11/21 16:43 Pulse 89 02/11/21 16:43 Respiratory Rate 18 02/11/21 16:43 Blood Pressure 132/94 H 02/11/21 16:43 Pulse Oximetry 100 02/11/21 16:43 Temperature 36.6 C 02/11/21 16:43 Temperature Source Tympanic 02/11/21 16:43 Pulse 89 02/11/21 16:43 Respiratory Rate 18 02/11/21 16:43 Blood Pressure 132/94 H 02/11/21 16:43 Pulse Oximetry 100 02/11/21 16:43 Oxygen Delivery Method Room Air 02/11/21 16:43 Oxygen Flow Rate 0 02/11/21 16:43 Pain Level 10 02/11/21 16:43 Comment 02/11/21 16:43 Lab/Test Results Lab/Test Results: Laboratory Tests Range/Units 02/11/21 02/11/21 17:15 17:30 WBC (4.4-10.8) 10^3/uL 8.98 RBC (3.93-5.22) 10^6/uL 4.88 Hgb (11.2-15.7) g/dL 14.1 Hct (36.0-46.0) % 42.3 MCV (80-95) fL 86.7 MCH (27.0-33.0) pg 28.9 MCHC (32.0-36.0) % 33.3 RDW (11.7-14.6) % 14.1 Plt Count (130-400) 10^3/uL 386 MPV (8.0-11.0) fL 9.2 Immature Gran % 0.3 Neutrophils % 63.6 Lymphocytes % 25.5 Monocytes % 8.2 Eosinophils % 1.6 Basophils % 0.8 Nucleated RBC % % 0 Absolute Neutrophils (1.2-6.7) 10^3/uL 5.71 Absolute Lymphocytes (1.2-3.4) 10^3/uL 2.29 Absolute Monocytes (0.1-0.8) 10^3/uL 0.74 Absolute Eosinophils (0.0-0.7) 10^3/uL 0.14 Absolute Basophils (0.0-0.2) 10^3/uL 0.07 Urine Color (Yellow) Yellow Urine Clarity (Clear) Clear Urine pH (5-8) 5.5 Ur Specific [place] (1.005-1.025) <= 1.005 Urine Protein (Negative) mg/dL Negative Urine Ketones (Negative) mg/dL Negative Urine Blood (Negative) Negative Urine Nitrite (Negative) Negative Urine Bilirubin (Negative) Negative Urine Urobilinogen (Up TO 0.2) EU/dL 0.2 Ur Leukocyte Esterase (Negative) Negative Urine Glucose (Negative) mg/dL Negative
[2021-02-11] MEDS: Normal Saline - Diluent 50 ML VIAL IV (18:52)
[2021-02-11] MEDS: Omnipaque 350 MG/ML 100 ML BTL IJ (18:54)
[2021-02-11] MEDS: Normal Saline Flush 10 ML SYR IVP (18:55)
--- NOTE | 2021-02-11 18:57 | DI.CT_ITS ---
Exam(s) CT ABDOMEN PELVIS W EXAM: CT ABDOMEN PELVIS W INDICATION: Abdominal Distention, constipation, R/O SBO. COMPARISON: No exams were available for comparison TECHNIQUE: FINDINGS: CT examination of the abdomen and pelvis was performed with a bolus infusion of 100 cc of Omnipaque 3 50. Images obtained through the lung bases are unremarkable. Coronary artery calcification or stents noted. The liver shows subtle geographic decreased attenuation consistent with hepatic steatosis. Gallbladder and bile ducts are CT normal. Pancreas appears normal. Spleen is unremarkable in appearance. 14 millimeter left adrenal nodule noted, average radiodensity about 17 Hounsfield units. Follow-up a drenal CT recommended in 12 months for this probable benign process. The kidneys are unremarkable with no evidence of hydronephrosis, nephrolithiasis, or renal mass.. Ur inary bladder unremarkable. Abdominal aorta is of normal diameter and no major vascular abnormality is seen. No abdominal wall hernia. No abdominal or pelvic adenopathy. [employer] structures appear intact for age. Appendix is normal. No evidence of diverticulitis or bowel obstruction. IMPRESSION: No evidence of acute process. Hepatic steatosis noted. Probably benign 14 millimeter left adrenal nodule. Follow-up CT recommended in 12 months. RADIATION DOSE DELIVERED: 1,342.88mGy.cm Total DLP 1,342.88mGy.cm Total DLP CTDIvol RADIATION OPTIMIZATION: All CT scans at this facility use at least one of these dose optimization te chniques: automated exposure control; mA and/or kV adjustment per patient size (includes targeted exa ms where dose is matched to clinical indication); or iterative reconstruction.
--- NOTE | 2021-02-11 19:20 | DI.VRAD_ITS ---
PROCEDURE INFORMATION: Exam: CT Abdomen And Pelvis With Contrast Exam date and time: 02/11/2021 5:04 PM Age: 60 years old Clinical indication: Bloating and constipation; Patient HX: Abdominal distension, constipation, R/O sbo TECHNIQUE: Imaging protocol: Computed tomography of the abdomen and pelvis with contrast. Radiation optimization: All CT scans at this facility use at least one of these dose optimization techniques: automated exposure control; mA and/or kV adjustment per patient size (includes targeted exams where dose is matched to clinical indication); or iterative reconstruction. Contrast material: OMNI-PAQUE 350; Contrast volume: 100 ml; Contrast route: INTRAVENOUS (IV); COMPARISON: CR XR CHEST 2V PA LATERAL 01/04/2021 10:08 AM FINDINGS: Liver: Fatty, enlarged liver. Gallbladder and bile ducts: Normal. No calcified stones. No ductal dilation. Pancreas: Normal. No ductal dilation. Spleen: Normal. No splenomegaly. Adrenal glands: Low-density left adrenal nodule 12 mm. Kidneys and ureters: Left renal mid pole scarring. Stomach and bowel: Moderate fecal retention pattern. Diverticulosis noted without acute diverticulitis. Appendix: The appendix is well seen, within normal limits. Intraperitoneal space: Unremarkable. No free air. No significant fluid collection. Vasculature: Coronary artery calcifications/stents identified. Moderate atherosclerotic change seen in the vasculature. Lymph nodes: Unremarkable. No enlarged lymph nodes. Urinary bladder: Unremarkable as visualized. Reproductive: Unremarkable as visualized. Bones/joints: Mild to moderate lumbar spondylosis. Soft tissues: There is a small, fat containing right inguinal hernia. IMPRESSION: No acute abnormality seen to account for symptoms. Dictated and Authenticated by: Yaritza Cartagena MD. Ordering:LIONEL Garcia MD
[2021-02-11] MEDS: Sucralfate 1 GM TAB PO (20:05)
[2021-02-11 20:11] VITALS: BP 132/80; PULSE 89; RESP 18; TEMP 36.6; O2SAT 100
--- NOTE | 2021-02-13 16:49 | NUR.NOTE ---
Nursing Note: referral to care management for patient to have renal CT out patient withing the next 12 months- 02/12/21
== END 2021-02-11 20:10 | disposition home or self-care (01) ==
PROVIDERS: Emergency Provider Registered Nurse Emergency; PCP Family Medicine
DX: K76.0 Fatty (change of) liver, not elsewhere classified (principal); K57.90 Diverticulosis of intestine, part unspecified, without perforation or abscess without bleeding; K59.00 Constipation, unspecified
CPT/HCPCS: 80053; 83690; 93005; 99285; 74177; 81003; 83735; 84484; 85025; 93010; 99284; J3490

== ENCOUNTER 2021-03-08 03:10 | Outpatient (CLI) | payer MEDICAID, SELFPAY ==
[2021-03-08 13:41] LABS: Source Nasal/Nares
[2021-03-08 16:07] LABS: COVID-19 PCR Negative (Negative)
== END 2021-03-08 03:11 | disposition home or self-care (01) ==
LOC: LBO 03:10
PROVIDERS: PCP Family Medicine; Visit Provider Surgery
DX: Z20.822 Contact with and (suspected) exposure to COVID-19 (principal); Z01.818 Encounter for other preprocedural examination
CPT/HCPCS: 87635

== ENCOUNTER 2021-03-10 09:14 | Day surgery (SDC) | payer MEDICAID, SELFPAY ==
--- NOTE | 2021-03-10 06:57 | ENDO_ITS ---
Date of service: 03/10/21 Time of Service: 11:02 Endoscopy Report DATE OF PROCEDURE: 03/10/21 PRE-OP DIAGNOSIS: Bloating and change in bowel habits POST-OP DIAGNOSIS: other (gastritis, diverticulosis, colorectal polyps) PROCEDURE: 1. EGD with biopsies 2. Colonoscopy with polypectomy SURGEON: Cindy Coon ANESTHESIA TYPE: General:No Airway (see anesthesia record) ESTIMATED BLOOD LOSS: 5 PATHOLOGY: other (antrum bx, GE junction bx, ascending polyps, descending and sigmoid polyp) COMPLICATIONS: None DISPOSITION: same day INDICATIONS: Ms Gramajo is a pleasant 60-year-old female who is seen today to discuss a colonoscopy and upper endoscopy. She has had changes in bowel habits in the last 3-1/2 weeks as well as increasing bloating and epigastric pain. Her past medical history is significant for obesity, sleep apnea and cardiovascular disease. She had stents placed more than a year ago. She is on Plavix and aspirin. Her stress test this year was pretty unremarkable and she was deemed a low risk. Discussed colonoscopy and upper endoscopy with her. Risks benefits and alternatives were reviewed with her. Risks, benefits and complications have been reviewed. Complications include but are not limited to bleeding, pain, perforation, missed small lesion/polyp, sore throat, aspiration and adverse reaction to the medications. Questions were entertained and answered to their satisfaction and they wished to proceed. No guarantees were given or implied. Proceed with colonoscopy and EGD under sedation PREP: Miralax/Dulcolax PROCEDURE START TIME: 11:02 PROCEDURE END TIME: 11:41 COLONOSCOPY RETRACTION TIME: 21 minutes FINDINGS: mild inflammation in the stomach colon polyps mild diverticulosis PROCEDURE DESCRIPTION: After informed consent was obtained the patient was take to the procedure room and placed in a supine position. Monitors were applied and a time out was done. The patients name, date of , procedure type, allergies to medications and metal in their body was reviewed. A bite block was placed and the patient was sedated. Once sedated and comfortable the gastroscope was advanced through the oropharynx which was grossly normal into the esophagus. The proximal and mid- esophagus were normal. In the distal esophagus there was mild inflammation noted. The scope was advanced into the stomach and through the pylorus into the 3rd portion of the duodenum. The duodenum was noted to be normal. The scope was retracted back into the stomach. There was mild inflammation noted in the antrum and body. Biopsies were done to rule out H. pylori. There were no ulcers. The scope was retro-flexed. The cardia and fundus were noted to be normal. There was no hiatal hernia noted. The scope was retracted back into the esophagus and biopsies were done of the GE junction to rule out Duran's. The Z line was regular. The GE junction was at 42 cm. While the patient was still sedated they were placed in a left decubitous position. External exam was normal. Internal exam revealed a decreased sphincter tone and no palpable masses. The scope was then introduced and retro-flexed. No internal hemorrhoids, masses or polyps were identified on retroflexion. The scope was then advanced to the cecum without difficulty. The ileocecal valve and appendiceal orifice were identified. The prep was adequate. The scope was then slowly retracted over 21 minutes back into the rectum. Polyps were removed with cold forceps in the ascending colon x2, descending colon x1 and sigmoid colon x1. There was no diverticulosis noted. The scope was removed and the patient was woken up and taken back to Same day surgery in stable condition. The patient tolerated the procedure well and there were no immediate complications. Follow up: 2 weeks in the office
--- NOTE | 2021-03-10 06:58 | W.PM.DSUDISC ---
Discharge Plan Disposition Patient Disposition: HOME Condition: Good Discharge Details Reason For Visit: [place]/EGD Attending Provider: Cindy Coon Primary Care Provider: Luis E Narayan Home Meds and New Rx's Prescriptions: Continued budesonide-formoterol [Symbicort] 80-4.5 mcg/actuation HFA aerosol inhaler 2 puff Inhalation BID Qty: 3 RF: 11 (DME) Aerochamber MV spacer See Dose Instructions .Route .MEDSUPPLY Qty: 1 RF: 0 nicotine 14 mg/24 hr patch 24 hour 1 patch TD DAILY Qty: 21 RF: 2 fluticasone propionate [Flonase Allergy Relief] 50 mcg/actuation spray,suspension 1 spray KUMAR BID PRN (Reason: nasal congestion) Qty: 9.9 RF: 3 loratadine [Claritin] 10 mg tablet 10 mg PO DAILY RF: 0 lorazepam 1 mg tablet 0.5 - 1 mg PO BID PRN (Reason: anxiety) Qty: 30 RF: 0 nitroglycerin 0.4 mg tablet, sublingual 0.4 mg Sublingual PRN Qty: 25 RF: 2 melatonin 10 mg capsule 10 mg PO HS PRNRF: 0 acetaminophen [Tylenol] 325 MG tablet 650 mg PO Q4H PRN RF: 0 CPAP RF: 0 (DME) lancets [OneTouch Delica Lancets] 1 EACH misc 1 ea Intradermal BID Qty: 200 RF: 4 (DME) OneTouch Ultra Test 1 EACH strip 1 strip Miscellaneous DAILY Qty: 100 RF: 3 amlodipine 5 mg tablet 5 mg PO DAILY Qty: 90 RF: 4 clopidogrel [Plavix] 75 mg tablet 75 mg PO DAILY Qty: 90 RF: 4 Metoprolol Succinate 25 MG TAB.ER.24H 25 mg PO DAILY Qty: 90 RF: 4 simvastatin 10 mg tablet 10 mg PO DAILY Qty: 90 RF: 4 losartan [Cozaar] 100 mg tablet 100 mg PO DAILY Qty: 90 RF: 4 albuterol sulfate [Ventolin HFA] 90 mcg/actuation HFA aerosol inhaler 2 puff IH Q4H PRN (Reason: shortness of breath or wheezing) Qty: 8.5 RF: 11 simethicone [Gas Relief (simethicone)] 80 mg tablet,chewable 80 mg PO 4-6XD PRNRF: 0 aspirin 81 mg Tablet,Delayed Release (Dr/Ec) 81 mg PO DAILY RF: 0 lamotrigine 100 mg tablet 100 mg PO QAM RF: 0 buspirone 15 mg tablet 15 mg PO BID RF: 0 trazodone 50 mg tablet 100 mg PO HS PRN RF: 0 albuterol sulfate 90 mcg/actuation aerosol powdr breath activated 2 inh IH Q6H PRN (Reason: shortness of breath or wheezing) Qty: 1 RF: 0 sucralfate [Carafate] 100 mg/mL suspension 10 ml PO QACHS Qty: 400 RF: 0 metformin 500 mg tablet 1,000 mg PO BID RF: 0 (DME) blood-glucose meter [FreeStyle Lite Meter] Kit See Rx Instructions .ROUTE .MEDSUPPLY Qty: 1 RF: 0 (DME) FreeStyle Lite Strips Strip See Rx Instructions .ROUTE .MEDSUPPLY Qty: 10 RF: 0 Changed omeprazole 20 mg capsule,delayed release(DR/EC) 40 mg PO DAILY Qty: 90 RF: 3 Discontinued bisacodyl [Dulcolax (bisacodyl)] 5 mg tablet,delayed release (DR/EC) 5 mg PO ONCE Qty: 4 RF: 0 polyethylene glycol 3350 17 gram powder in packet 255 g PO DAILY Qty: 15 RF: 0 Discharge Instructions Instructions: Diverticulosis (DC), Colorectal Polyps (DC), Diet for Stomach Ulcers and Gastritis (ED), Gastritis (DC) Additional Instructions: Findings: 1. mild inflammation of the stomach and esophagus 2. colon polyps 3. Diverticulosis Follow up: in the office in 2 weeks Please call if you develop: fevers >101.5 Nausea or Vomiting Abdominal pain that is not transient Rectal bleeding that is more then a tbsp A hard abdomen and inability to pass gas DAY SURGERY UNIT POST ENDOSCOPY INSTRUCTIONS Instructions for everyone who is given Anesthesia: For your safety, please do the following for the next 24 Hours: a. Do not drive or operate dangerous equipment b. Do not drink alcohol beverages or use any recreational drugs for the first 24 hours or while taking pain medications. The medications in your body may have a reaction that can be dangerous. c. Do not make any important decisions or sign any important papers 1. Generally there are no restrictions on your activity after a day or so has gone by, but you may feel a bit fatigued for a few days. 2. After you arrive home you may have a light meal and return to a normal diet as you can tolerate it without feeling sick to your stomach. 3. After surgery, you may feel pain or discomfort. This should be only transient, but if it persists please contact your doctor. 4. If there are any questions regarding the findings of your procedure, please feel free to contact your doctor. 6. If you are unable to contact your doctor with a problem, contact the hospital at [phone]. 7. Continue all your regular medications unless directed otherwise. I understand the above instructions and have no questions. Signature of Patient or Responsible Adult Escort Date/Time Name of Responsible Adult Escort Signature of Nurse Date/Time Referrals: Cindy Coon MD [ [facility] STAFF PHYSICIAN] - 03/23/21 8:00 am Activity:: Activity as Tolerated Diet:: As Tolerated Discharge Orders Discharge Orders: Discharge Order (Routine); Ordered 03/10/21 Ordered By: Cindy Coon
[2021-03-10 09:32] VITALS: BP 130/71; PULSE 76; RESP 18; TEMP 36.5; O2SAT 95
[2021-03-10] MEDS: Lactated Ringers 1,000 ML 80 ML IV (10:05)
--- NOTE | 2021-03-10 10:09 | ANES.PREOP_ITS ---
General Info Date of Service Date Performed: 03/10/21 Height: 5 ft 3 in Weight: 109.7 kg Body Mass Index (BMI): 42.8 Surgical Procedure: Operation Date: 03/10/21 10:50 Proposed Procedures Side Surgeon p Colonoscopy/Gastroscopy Cindy Coon MD Meds Allergies and Home Medications Allergies Allergy/AdvReac Type Severity Reaction Status Date / Time azithromycin AdvReac Mild Nausea Verified 03/10/21 09:42 codeine AdvReac Mild Nausea Verified 03/10/21 09:42 erythromycin base AdvReac Mild Nausea Verified 03/10/21 09:42 ibuprofen AdvReac Mild Nausea Verified 03/10/21 09:42 lisinopril AdvReac Mild cough Verified 03/10/21 09:42 NSAIDS (Non-Steroidal AdvReac Mild Nausea Verified 03/10/21 09:42 Anti-Inflamma Home Medication Medication Instructions Recorded Cpap 10/24/12 acetaminophen [Tylenol] 650 mg PO Q4H PRN tab-cap 10/24/12 lancets [TrueFacetTouch Delica Lancets] #200 ea 12/15/12 TrueFacetTouch Ultra Test #100 strip 01/24/14 budesonide-formoterol HFA 80 2 puff INHALATION BID #3 gm 05/01/18 mcg-4.5 mcg/actuation aerosol inhaler inhalational spacing device #1 each 05/01/18 nitroglycerin 0.4 mg sublingual 0.4 mg SUBLINGUAL PRN #25 tab-cap 05/04/18 tablet amlodipine 5 mg tablet 5 mg PO DAILY #90 tab-cap 07/27/18 clopidogrel 75 mg tablet 75 mg PO DAILY #90 tab 07/27/18 omeprazole 20 mg capsule,delayed 20 mg PO DAILY #90 tab-cap 07/31/18 release simvastatin 10 mg PO DAILY #90 tab-cap 07/31/18 losartan 100 mg tablet 100 mg PO DAILY #90 tab-cap 12/27/18 nicotine 14 mg/24 hr daily 1 patch TD DAILY #21 each 01/30/19 transdermal patch fluticasone propionate 50 1 spray KUMAR BID PRN #9.9 gm 02/03/19 mcg/actuation nasal spray,suspension loratadine 10 mg tablet 10 mg PO DAILY 02/03/19 lorazepam 1 mg tablet 0.5 - 1 mg PO BID PRN #30 tab 02/19/19 albuterol sulfate 90 mcg/actuation 2 puff IH Q4H PRN #8.5 gm 08/29/19 aerosol inhaler metformin 1,000 mg PO BID 09/12/19 aspirin 81 mg PO DAILY 08/17/20 buspirone 15 mg PO BID 08/17/20 lamotrigine 100 mg PO QAM 08/17/20 trazodone 100 mg PO HS PRN 08/17/20 FreeStyle Lite Strips #10 ea 12/06/20 blood-glucose meter [FreeStyle #1 ea 12/06/20 Lite Meter] albuterol sulfate 2 inh IH Q6H PRN #1 each 01/04/21 sucralfate [Carafate] 10 ml PO QACHS #400 ml 02/11/21 simethicone 80 mg chewable tablet 80 mg PO 4-6XD PRN 02/12/21 bisacodyl 5 mg tablet,delayed 5 mg PO ONCE #4 tab 02/23/21 release melatonin 10 mg capsule 10 mg PO HS PRN 02/23/21 polyethylene glycol 3350 17 gram 255 g PO DAILY #15 ea 02/23/21 oral powder packet Current Visit Medications: Current Medications Generic Name Dose Route Start Last Admin Trade Name Freq PRN Reason Stop Dose Admin Hyoscyamine Sulfate 0.125 mg 03/10/21 06:59 Hyoscyamine 0.125 Mg Sl/Oral/Chew SL DIRECTED PRN Ringer's Solution 1,000 mls @ 80 mls/hr 03/10/21 06:00 03/10/21 10:05 IV 04/08/21 23:59 80 mls/hr INFUSION VINNIE Administration IV Miscellaneous Supplies 1 each 03/10/21 06:00 Iv Access IV 04/08/21 23:59 DIRECTED VINNIE Ondansetron HCl 4 mg 03/10/21 06:59 Ondansetron 4 Mg/2 Ml Vial IVP Q4H PRN PRN Nausea / Vomiting Sodium Chloride 0 ml 03/10/21 06:00 Normal Saline Flush 10 Ml Syr IV 04/08/21 23:59 PRN PRN Sodium Chloride 0 ml 03/10/21 06:00 Normal Saline 10 Ml Vial IJ 04/08/21 23:59 DIRECTED PRN Sterile Water 0 ml 03/10/21 06:00 Water,Injection,Sterile 10 Ml Vial IJ 04/08/21 23:59 DIRECTED PRN [facility] Active Problems Active Problems: Problem Status Onset Code ASCVD (arteriosclerotic cardiovascular disease) I25.10 Anxiety F41.9 COPD (chronic obstructive pulmonary disease) J44.9 Depressive disorder F32.9 Diabetic peripheral neuropathy associated with type 2 diabetes mellitus 03/03/16 E11.42 Essential hypertension 05/03/13 I10 Urinary, incontinence, stress female 09/13/13 N39.3 Heart murmur 09/13/13 R01.1 Hyperlipidemia 12/18/12 E78.5 Morbid obesity E66.01 Numbness and tingling in right hand 03/03/16 R20.0, R20.2 Obstructive sleep apnea syndrome 03/27/10 G47.33 Pap smear abnormality of cervix with LGSIL R87.612 Postmenopausal bleeding 09/21/11 N95.0 Sciatica 07/04/13 M54.30 Skin tags, multiple acquired 02/15/16 L91.8 Smoker F17.200 Type II diabetes mellitus, uncontrolled E11.65 Asthma J45.909 Status post arthroscopy of left knee Z98.890 History of section Z98.891 Family history of malignant neoplasm of breast 09/11/14 Z80.3 Fever R50.9 Upper respiratory infection J06.9 Hyperglycemia R73.9 Acute bronchospasm J98.01 Seasonal allergies J30.2 History of COPD Z87.09 Fatty liver K76.0 Diverticulosis K57.90 Constipation K59.00 Incontinence R32 Pedal edema R60.0 Varicose veins of lower extremity I83.90 Bipolar disorder F31.9 Compliant with therapeutic regimen Caren, oral B37.0 Allergic rhinitis J30.9 Medical History Medical History Allergic rhinitis Anxiety Atherosclerotic cardiovascular disease Bipolar disorder Caren, oral Compliant with therapeutic regimen COPD (chronic obstructive pulmonary disease) Depression Diabetes type 2, controlled Heart murmur History of renal carcinoma Hx of malignant neoplasm of eye Hyperlipidemia Hypertension Incontinence Morbid obesity with BMI of 40.0-44.9, adult Pedal edema Plantar fasciitis of left foot Sleep apnea Stress incontinence in female Varicose veins of lower extremity Surgical History Surgical History (Updated 03/10/21 @ 09:41 by Zenia Isabel, RN) Arthroplasty of knee athroscopy not arthroplasty. Cervical Procedure BX VALENTINO I section (~1981) Stent placement X 4 TO LCX-1995 Tobacco Smoking/Tobacco Use Status: Current every day Tobacco Type: cigarettes Smoking packs per day: 1 Alcohol Alcohol Intake: former Substance Use Substance use: Never Substance use type: does not use Vital Signs and Lab Results Vital Signs Most Recent Vital Signs in EMR: Most Recent Vital Signs Temp Pulse Resp BP Pulse Ox 36.5 C 76 18 130/71 95 03/10/21 09:32 03/10/21 09:32 03/10/21 09:32 03/10/21 09:32 03/10/21 09:32 Point of Care Results Point of Care Results: Finger Stick Blood Glucose 182 03/10/21 10:01 Lab Results Blood Type / Crossmatch: No Data to Display Complete Blood Count: White Blood Count 8.98 10^3/uL (4.4-10.8) 02/11/21 17:30 02/11/21 Red Blood Count 4.88 10^6/uL (3.93-5.22) 02/11/21 17:30 02/11/21 Hemoglobin 14.1 g/dL (11.2-15.7) 02/11/21 17:30 02/11/21 Hematocrit 42.3 % (36.0-46.0) 02/11/21 17:30 02/11/21 Platelet Count 386 10^3/uL (130-400) 02/11/21 17:30 02/11/21 Complete Metabolic Panel: Sodium Level 142 mmol/L (136-145) 02/11/21 17:30 02/11/21 Potassium Level 4.2 mmol/L (3.5-5.1) 02/11/21 17:30 02/11/21 Chloride Level 105 mmol/L (98-107) 02/11/21 17:30 02/11/21 Carbon Dioxide Level 27.8 mmol/L (21.0-32.0) 02/11/21 17:30 02/11/21 Blood Urea Nitrogen 13 mg/dL (7-18) 02/11/21 17:30 02/11/21 Creatinine 0.8 mg/dL (0.55-1.02) 02/11/21 17:30 02/11/21 Estimated GFR/1.73 m2 >= 60.00 (mL/min/1.73m2) 02/11/21 17:30 02/11/21 Magnesium Level 1.8 mg/dL (1.8-2.4) 02/11/21 17:30 02/11/21 Calcium Level 9.4 mg/dL (8.5-10.1) 02/11/21 17:30 02/11/21 Albumin 4.1 g/dL (3.4-5.0) 02/11/21 17:30 02/11/21 Glucose Level 149 mg/dL (74-106) H 02/11/21 17:30 02/11/21 Liver Function Panel: Alanine Aminotransferase (ALT/SGPT) 39 U/L (14-59) 02/11/21 17:30 02/11/21 Aspartate Amino Transf (AST/SGOT) 21 U/L (15-37) 02/11/21 17:30 02/11/21 Coagulation Panel: No Data to Display Cardiac Panel: No Data to Display Arterial Blood Gas: No Data to Display Venous Blood Gas: No Data to Display Pancreas Panel: Lipase 145 U/L (73-393) 02/11/21 17:30 02/11/21 Thyroid Panel: No Data to Display Infectious Disease: Coronavirus (COVID-19)(PCR) Negative (Negative) 03/08/21 08:19 03/08/21 Coronavirus 2019 Source Nasal/Nares 03/08/21 08:19 03/08/21 Blood Cultures: No Data to Display Toxicology Panel: No Data to Display Imaging and Studies Imaging and Studies EKG Summary: 02/2021: SR, LVH. Stress Test Summary: 08/30: stress ECG Conclusion 1. Patient exercised for 7 minutes (8 METS). Patient no symptoms suggestive of ischemia. 2. Patient had normal blood pressure and heart rate response to exercise. 3. There is no evidence of ischemia on ECG portion exam. Flanagan Treadmill Score is 6 which is Low risk. Echocardiogram Summary: 08/2020: LVEF 55%, mild MR. trace AR, trace TR. Anesthesia Assessment and Plan Anesthesia History Personal History: No History of Anesthesia Complications Family History: No Family History of Anesthesia Complications Exercise Tolerance Exercise Tolerance: Metabolic Equivalents>4 Cardiac & Pulmonary Exam Cardiac Exam: Normal S1/S2 Heart Sounds Pulmonary Exam: Clear Bilateral Breath Sounds Airway Exam Known Difficult Airway: No Mallampati Class: 2 Mouth Opening: Normal (> 3cm) Thyromental Distance: Greater than 3 cm Neck Range of Motion: Full ROM Neck Circumference: Thick Teeth Condition: Normal Dentition Airway Comments: multiple missing in the backs. ASA Classification ASA Score: ASA 3 Emergency Case?: No NPO Status NPO Status: NPO Clears >2 hours, Solids >8 hours Anesthesia Plan Resuscitation Status: Full Code Anesthesia Technique: General Anesthesia Airway Planned: Natural Airway Monitors Used: Standard Monitors Preoperative Comments:: 60 yo F for EGD/[place] for bloating, change in bowel habits, and epigastric pain. PMHx of CAD (NSTEMI with stents), DM with neuropathy, COPD, anxiety, HTN, TITO, GERD. Denies new chest pain, or cardiac issues. previous Mac 3 grade 2, easy mask for partial nephrectomy.
[2021-03-10 10:38] VITALS: BMI 42.8
--- NOTE | 2021-03-10 11:05 | BOWEL_PTH ---
PATIENT: Alize Gramajo LOC: [facility] U#:[id number] AGE/SX: 60/F ROOM: RE03/10/[address]: Cindy Coon MD : 1960 BED: DIS: 03/10/2021 SPEC #: [id number] RECD: 03/10/21 12:53 STATUS: JOY RE #: [id number] AMBREEN: 03/10/21 11:[address]: Cindy Coon DEPT: Surgical Specimen RECD BY: Vijaya Carrasquillo ENTERED: 03/10/21 12:55 SP TYPE: Bowel OTHR DR: Luis E Narayan Tissues: 1 - STOMACH BIOPSY 2 - ESOPHAGUS BIOPSY 3 - BIOPSY BOWEL 4 - BIOPSY BOWEL 5 - BIOPSY BOWEL Procedures: GROSS AND MICRO LEVEL 4 Comments: [id number]
[2021-03-10 11:45] VITALS: BP 99/59; PULSE 73; RESP 18; TEMP 36.1; O2SAT 94
--- NOTE | 2021-03-10 12:01 | W.ANESPOSTOP ---
Postoperative Evaluation Date, Time and Location Date Performed: 03/10/21 Time Performed: 12:01 Patient Location: Day Surgery Unit Vital Signs Most Recent Imported Vital Signs: Most Recent Vital Signs Temp Pulse Resp BP Pulse Ox 36.1 C L 73 18 99/59 L 94 03/10/21 11:45 03/10/21 11:45 03/10/21 11:45 03/10/21 11:45 03/10/21 11:45 Pain Score Most Recent Pain Score: Most Recent Pain Score Pain Level 0 03/10/21 11:45 Assessment Mental Status: Awake (Alert & Oriented to Patient Baseline) Airway and Respiratory Function: Patent airway with normal (patient baseline) respiratory exam Cardiovascular Function: Hemodynamically Stable Hydration Status: Adequately Hydrated Nausea & Vomiting: No Nausea or Vomiting Pain: Pt. Denies Any Pain Peripheral Nerve Block: Patient did not receive a nerve block
[2021-03-10 12:23] VITALS: BP 136/84; PULSE 66; RESP 17; TEMP 36.2; O2SAT 97
== END 2021-03-10 12:39 | disposition home or self-care (01) ==
LOC: SUR 09:15
PROVIDERS: PCP Family Medicine; Visit Provider Surgery
PROC: (CPT 45380; principal; 2021-03-10 10:45)
DX: K29.70 Gastritis, unspecified, without bleeding (principal); K57.30 Diverticulosis of large intestine without perforation or abscess without bleeding; D12.2 Benign neoplasm of ascending colon; R19.4 Change in bowel habit
CPT/HCPCS: 45380; 43239; 88305; J2001

== ENCOUNTER 2021-10-03 16:56 | Emergency (ER) | payer MEDICARE, MEDICAID, SELFPAY ==
[2021-10-03 17:00] VITALS: BP 160/81; PULSE 80; RESP 18; TEMP 36.3; O2SAT 99
--- NOTE | 2021-10-03 17:30 | DI.RAD_ITS ---
Exam(s) XR PORTABLE CHEST AP EXAM: XR PORTABLE CHEST AP CLINICAL HISTORY: R/O PNA, Hx COPD TECHNIQUE: 2D digital imaging was performed. COMPARISON: CR XR CHEST 2V PA LATERAL from 01/04/2021 FINDINGS: LUNGS: Clear. No pleural abnormality seen. HEART: Normal. MEDIASTINUM: Normal. BONES: Unremarkable. IMPRESSION: No acute pulmonary findings. DATA REPOSITORY: RADIATION DOSE DELIVERED:
--- NOTE | 2021-10-03 17:46 | ED.GENADUL_ITS ---
Discharge Plan Disposition Patient Disposition: HOME Condition: Stable Discharge Details Clinical Impression: Sinusitis, URI (upper respiratory infection) Primary Care Provider: Luis E Narayan ED Provider: Radha Tariq Home Meds and New Rx's Prescriptions: New amoxicillin-pot clavulanate 875-125 mg tablet 1 tab PO BID 7 Days Qty: 14 0RF Continued budesonide-formoterol [Symbicort] 80-4.5 mcg/actuation HFA aerosol inhaler 2 puff Inhalation BID Qty: 3 11RF (DME) Aerochamber MV spacer See Dose Instructions .Route .MEDSUPPLY Qty: 1 0RF Dose Instruction: As directed Rx Instructions: As directed nicotine 14 mg/24 hr patch 24 hour 1 patch TD DAILY Qty: 21 2RF Label Comments: not currently using fluticasone propionate [Flonase Allergy Relief] 50 mcg/actuation spray,suspension 1 spray KUMAR BID PRN (Reason: nasal congestion) Qty: 9.9 3RF Rx Instructions: administer into each nostril loratadine [Claritin] 10 mg tablet 10 mg PO DAILY 0RF lorazepam 1 mg tablet 0.5 - 1 mg PO BID PRN (Reason: anxiety) Qty: 30 0RF Rx Instructions: 12/06/ PT USES 1 MG AT HS AND 0.5 MG AT NOON nitroglycerin 0.4 mg tablet, sublingual 0.4 mg Sublingual PRN Qty: 25 2RF Rx Instructions: 1 TAB SL PRN melatonin 10 mg capsule 10 mg PO HS PRN0RF acetaminophen [Tylenol] 325 MG tablet 650 mg PO Q4H PRN 0RF CPAP 0RF (DME) lancets [OneTouch Delica Lancets] 1 EACH misc 1 ea Intradermal BID Qty: 200 4RF Rx Instructions: DX: 250.00 (DME) OneTouch Ultra Test 1 EACH strip 1 strip Miscellaneous DAILY Qty: 100 3RF Rx Instructions: DX: 250.00 oral meds amlodipine 5 mg tablet 5 mg PO DAILY Qty: 90 4RF Rx Instructions: 1 TAB DAILY clopidogrel [Plavix] 75 mg tablet 75 mg PO DAILY Qty: 90 4RF Metoprolol Succinate 25 MG TAB.ER.24H 25 mg PO DAILY Qty: 90 4RF Rx Instructions: 1 TAB DAILY simvastatin 10 mg tablet 10 mg PO DAILY Qty: 90 4RF Rx Instructions: 1 TAB DAILY losartan [Cozaar] 100 mg tablet 100 mg PO DAILY Qty: 90 4RF Rx Instructions: 1 TAB DAILY albuterol sulfate [Ventolin HFA] 90 mcg/actuation HFA aerosol inhaler 2 puff IH Q4H PRN (Reason: shortness of breath or wheezing) Qty: 8.5 11RF aspirin 81 mg Tablet,Delayed Release (Dr/Ec) 81 mg PO DAILY 0RF lamotrigine 100 mg tablet 100 mg PO QAM 0RF Label Comments: TAKE ONE TABLET BY MOUTH TWICE A DAY buspirone 15 mg tablet 15 mg PO BID 0RF Label Comments: TAKE ONE TABLET BY MOUTH TWICE A DAY trazodone 50 mg tablet 100 mg PO HS PRN 0RF Rx Instructions: 1-tab at HS PRN albuterol sulfate 90 mcg/actuation aerosol powdr breath activated 2 inh IH Q6H PRN (Reason: shortness of breath or wheezing) Qty: 1 0RF omeprazole 20 mg capsule,delayed release(DR/EC) 40 mg PO DAILY Qty: 90 3RF Rx Instructions: 1 CAP DAILY metformin 500 mg tablet 1,000 mg PO BID 0RF (DME) blood-glucose meter [FreeStyle Lite Meter] Kit See Rx Instructions .ROUTE .MEDSUPPLY Qty: 1 0RF Rx Instructions: As directed (DME) FreeStyle Lite Strips Strip See Rx Instructions .ROUTE .MEDSUPPLY Qty: 10 0RF Rx Instructions: As directed Discharge Instructions Instructions: Sinusitis (ED), Upper Respiratory Infection (ED) Additional Instructions: X-ray shows no evidence for pneumonia or any abnormality. Due to you have a sinus infection. Strep swab was negative. The Covid test is still pending. Continue to quarantine and wear a mask until you have the results. You may also consider doing a rapid test at home. However the test we sent is more accurate. Follow up with primary care provider in 3-5 days. Return to ED sooner if any worsening shortness of breath, fever, productive cough or concerns. Increase oral fluids. Please take Tylenol with food every 4-6 hours as needed for pain and swelling. Referrals: Luis E Narayan [Primary Care Provider] - 3 days Medical Decision Making 60-year-old female presents to the ER with chief complaint of sinus pain, sore throat and ear pain x4 days. She reports that she had some sick contacts with her grandchildren but they have all tested negative for Covid. She has a past medical history of COPD, morbid obesity, heart murmur, atherosclerotic cardio vascular disease, anxiety, renal carcinoma. She has been fully vaccinated for COVID but has not recently been tested. She is in no respiratory distress, no increased work of breathing, speaking in f ull sentences. On auscultation she does have some rhonchi noted on the right lower lobe. Posterior oropharynx slightly erythemic, sinus tenderness to her frontal and maxillary sinuses. Boggy nasal turbinates. She is a daily smoker. Last took Tylenol at 11 AM. Strep swab obtained , Covid swab send out, chest x-ray and albuterol neb ordered. I do suspect sinusitis versus URI/bronchitis versus COPD exacerbation. Vital signs are stable. 1858: Chest x-ray shows no acute findings no pleural effusion no pneumothorax. Patient reevaluation, she reports feeling better after the nebulizer. Hem odynamically stable. Given Augmentin here in the department and a prescription for 7 days. Discussed return instructions, verbalized understanding. Discussed quarantine due to the pending Covid test she verbalizes understanding. This text was generated using [employer] dictation system, please disregard any oddities of phrase or misspellings. HPI General Mode of arrival: ambulatory . Date/Time Provider Initiated Documentation: 10/03/21 16:57 . Limitations to Documentation: no limitations . Information obtained by: patient, RN notes reviewed and old records reviewed . HPI Narrative: 60-year-old female presents to the ER with chief complaint of sinus pain, sore throat and ear pain x4 days. She reports that she had some sick contacts with her grandchildren but they have all tested negative for Covid. She has a past medical history of COPD, morbid obesity, heart murmur, atherosclerotic cardiovascular disease, anxiety, renal carcinoma. She has been fully vaccinated for COVID but has not recently been tested. She is in no respiratory distress, no increased work of breathing, speaking in full sentences. On auscultation she does have some rhonchi noted on the right lower lobe. Posterior oropharynx slightly erythemic, sinus tenderness to her frontal and maxillary sinuses. Boggy nasal turbinates. She is a daily smoker. Last took Tylenol at 11 AM. Related Data Home Medications Medication Instructions Recorded Confirmed Cpap 10/24/12 03/23/21 acetaminophen 325 mg tablet 650 mg PO Q4H PRN tab-cap 10/24/12 10/03/21 (Tylenol) lancets 33 gauge (OneTouch Brit #200 ea 12/15/12 03/23/21 Lancets) blood sugar diagnostic ([facility] strip 01/24/14 03/23/21 Ultra Test) budesonide-formoterol HFA 80 2 puff INHALATION BID #3 gm 05/01/18 10/03/21 mcg-4.5 mcg/actuation aerosol inhaler (Symbicort) inhalational spacing device #1 each 05/01/18 03/23/21 (Aerochamber MV) nitroglycerin 0.4 mg sublingual 0.4 mg SUBLINGUAL PRN #25 tab-cap 05/04/18 10/03/21 tablet amlodipine 5 mg tablet 5 mg PO DAILY #90 tab-cap 07/27/18 10/03/21 clopidogrel 75 mg tablet (Plavix) 75 mg PO DAILY #90 tab 07/27/18 10/03/21 simvastatin 10 mg tablet 10 mg PO DAILY #90 tab-cap 07/31/18 10/03/21 losartan 100 mg tablet (Cozaar) 100 mg PO DAILY #90 tab-cap 12/27/18 10/03/21 nicotine 14 mg/24 hr daily 1 patch TD DAILY #21 each 01/30/19 10/03/21 transdermal patch fluticasone propionate 50 1 spray KUMAR BID PRN #9.9 gm 02/03/19 10/03/21 mcg/actuation nasal spray,suspension (Flonase Allergy Relief) loratadine 10 mg tablet (Claritin) 10 mg PO DAILY 02/03/19 10/03/21 lorazepam 1 mg tablet 0.5 - 1 mg PO BID PRN #30 tab 02/19/19 10/03/21 albuterol sulfate 90 mcg/actuation 2 puff IH Q4H PRN #8.5 gm 08/29/19 10/03/21 aerosol inhaler (Ventolin HFA) metformin 500 mg tablet 1,000 mg PO BID 09/12/19 10/03/21 aspirin 81 mg tablet,delayed 81 mg PO DAILY 08/17/20 10/03/21 release buspirone 15 mg tablet 15 mg PO BID 08/17/20 10/03/21 lamotrigine 100 mg tablet 100 mg PO QAM 08/17/20 10/03/21 trazodone 50 mg tablet 100 mg PO HS PRN 08/17/20 10/03/21 blood sugar diagnostic (FreeStyle #10 ea 12/06/20 03/23/21 Lite Strips) blood-glucose meter (FreeStyle #1 ea 12/06/20 03/23/21 Lite Meter) albuterol sulfate 90 mcg/actuation 2 inh IH Q6H PRN #1 each 01/04/21 10/03/21 breath activated powder inhaler melatonin 10 mg capsule 10 mg PO HS PRN 02/23/21 10/03/21 omeprazole 20 mg capsule,delayed 40 mg PO DAILY #90 tab-cap 03/10/21 10/03/21 release amoxicillin 875 mg-potassium 1 tab PO BID 7 Days #14 tab 10/03/21 clavulanate 125 mg tablet Previous Rx's Medication Instructions Recorded budesonide-formoterol HFA 80 2 puff INHALATION BID #3 gm 05/01/18 mcg-4.5 mcg/actuation aerosol inhaler (Symbicort) inhalational spacing device #1 each 05/01/18 (Aerochamber MV) nitroglycerin 0.4 mg sublingual 0.4 mg SUBLINGUAL PRN #25 tab-cap 05/04/18 tablet amlodipine 5 mg tablet 5 mg PO DAILY #90 tab-cap 07/27/18 clopidogrel 75 mg tablet (Plavix) 75 mg PO DAILY #90 tab 07/27/18 simvastatin 10 mg tablet 10 mg PO DAILY #90 tab-cap 07/31/18 losartan 100 mg tablet (Cozaar) 100 mg PO DAILY #90 tab-cap 12/27/18 nicotine 14 mg/24 hr daily 1 patch TD DAILY #21 each 01/30/19 transdermal patch fluticasone propionate 50 1 spray KUMAR BID PRN #9.9 gm 02/03/19 mcg/actuation nasal spray,suspension (Flonase Allergy Relief) lorazepam 1 mg tablet 0.5 - 1 mg PO BID PRN #30 tab 02/19/19 albuterol sulfate 90 mcg/actuation 2 puff IH Q4H PRN #8.5 gm 08/29/19 aerosol inhaler (Ventolin HFA) blood sugar diagnostic (FreeStyle #10 ea 12/06/20 Lite Strips) blood-glucose meter (FreeStyle #1 ea 12/06/20 Lite Meter) albuterol sulfate 90 mcg/actuation 2 inh IH Q6H PRN #1 each 01/04/21 breath activated powder inhaler omeprazole 20 mg capsule,delayed 40 mg PO DAILY #90 tab-cap 03/10/21 release amoxicillin 875 mg-potassium 1 tab PO BID 7 Days #14 tab 10/03/21 clavulanate 125 mg tablet Allergies Allergy/AdvReac Type Severity Reaction Status Date / Time azithromycin AdvReac Mild Nausea Verified 10/03/21 17:05 codeine AdvReac Mild Nausea Verified 10/03/21 17:05 erythromycin base AdvReac Mild Nausea Verified 10/03/21 17:05 ibuprofen AdvReac Mild Nausea Verified 10/03/21 17:05 lisinopril AdvReac Mild cough Verified 10/03/21 17:05 NSAIDS (Non-Steroidal AdvReac Mild Nausea Verified 10/03/21 17:05 Anti-Inflamma General Stated Complaint: Sorethroat MONICA: 3 Review of Systems All systems reviewed & are unremarkable except as noted in HPI and below Constitutional Constitutional: Denies fever(s) ENT Ears, Nose, Mouth, and Throat: Reports as per HPI, Reports otalgia, Reports nasal congestion, Reports sinus pain, Reports sinus pressure, Reports sore throat, Denies throat swelling and Denies tongue swelling Cardiovascular Cardiovascular: Denies chest pain Respiratory Respiratory: Denies change in phlegm color, Reports cough and Denies hemoptysis Allergic/Immunologic Allergic/Immunologic: Denies throat swelling and Denies tongue swelling PFS All Active Problems (Updated 10/03/21 @ 19:06 by Radha Tariq) Sinusitis (Acute) URI (upper respiratory infection) (Acute) Hyperplastic colon polyp (Acute) ASCVD (arteriosclerotic cardiovascular disease) (Acute) 10/15 anterolat NSTE NV; stent x 4; 10/15 echo-EF 55%; inf.wall hypokinesis; mild Anxiety (Acute) after NV decreased memory/concentration--[facility] neurology COPD (chronic obstructive pulmonary disease) (Acute) continues to smoke Depressive disorder (Acute) fatigue Diabetic peripheral neuropathy associated with type 2 diabetes mellitus (Acute 03/03/16) Essential hypertension (Acute 05/03/13) Urinary, incontinence, stress female (Acute 09/13/13) Heart murmur (Acute 09/13/13) 10/21 echo LVEF 70% with LVH, aoritc valve thickened but opens well (no signif aortic stenosis) [facility] Echo 02/05/19 - LVH (mild-mod), EeF= 60-65%, systolic function normal, ascending aorta mildly dilated Hyperlipidemia (Acute 12/18/12) Morbid obesity (Acute) Numbness and tingling in right hand (Acute 03/03/16) Obstructive sleep apnea syndrome (Acute 03/27/10) [facility] sleep lab Pap smear abnormality of cervix with LGSIL (Acute) LGSIL +HPV; BX darcie I Postmenopausal bleeding (Acute 09/21/11) atypical endometrial hyperplasia Sciatica (Acute 07/04/13) left sciatica, MRI [facility] 07/22/13: L3-4 disc extrusion Skin tags, multiple acquired (Acute 02/15/16) Smoker (Acute) Type II diabetes mellitus, uncontrolled (Acute) Asthma (Chronic) Status post arthroscopy of left knee (Acute) History of section (Acute) Family history of malignant neoplasm of breast (Acute 09/11/14) Fever (Acute) She is febrile and has both abdominal and chest symptoms. We will send to the emergency room. Upper respiratory infection (Acute) Hyperglycemia (Acute) Acute bronchospasm (Acute) Seasonal allergies (Acute) History of COPD (Acute) Fatty liver (Acute) Diverticulosis (Acute) Constipation (Acute) Incontinence (Acute) Pedal edema (Acute) Varicose veins of lower extremity (Acute) Bipolar disorder (Chronic) Compliant with therapeutic regimen (Acute) Caren, oral (Acute) Allergic rhinitis (Acute) Medical History (Updated 10/03/21 @ 19:06 by Radha Tariq) Anxiety Atherosclerotic cardiovascular disease COPD (chronic obstructive pulmonary disease) Depression Heart murmur History of renal carcinoma Hx of malignant neoplasm of eye Hyperlipidemia Hypertension Morbid obesity with BMI of 40.0-44.9, adult Plantar fasciitis of left foot Sleep apnea Stress incontinence in female Surgical History (Updated 03/23/21 @ 08:25 by Cindy Coon MD) Arthroplasty of knee athroscopy not arthroplasty. Cervical Procedure BX DARCIE I section (~1981) H/O esophagogastroduodenoscopy (~03/10/21) S/P colonoscopy (~03/10/21) Stent placement X 4 TO LCX-1995 Family History Mother Personal history of malignant neoplasm UTERINE CA; HYSTERECTOMY AGE 76 Uterine cancer Hysterectomy at 76 Father Heart disease Brother Diabetes Cancer Brother No problems noted. Brother No problems noted. Social History Smoking/Tobacco Use Status: Current every day Tobacco Type: cigarettes Smoking packs per day: 1 Smoking cigarettes per day: 20.0 Smoking risk assessment performed?: Yes Alcohol Intake: former Drug use: Never Substance use type: does not use Household members: significant other Housing: house Communication Needs: None Do you need help understanding health information?: Rarely Pets and animals: Yes Pets and animals: dog(s) Do you think of yourself as: straight/heterosexual Current gender identity: female What is your relationship status?: living with partner How often do you talk on the phone with friends or family?: three or more times per week How often do you get together with friends or relatives?: decline to answer How often do you attend tenriism or nondenominational services?: decline to answer Do you belong to any clubs or organized social groups?: no Panel score (0-1 are the most socially isolated patients): 2 What type of physical activity do you participate in: none Duration: < 15 minutes/day Frequency: daily Katerina/Zoroastrianism: none Special katerina needs: No Seatbelt use: sometimes Helmet use: Yes Helmet use: always Drive intox or ride w/intox dumpster driver: No Do you feel safe at home: Yes Do you feel safe in your relationship?: Yes Exam Narrative Exam Narrative: Constitutional: Alert and oriented x3. Appears stated age. Obesebody habitus. Head: Normocephalic, no trauma. Eyes: Pupils PERRL, Red reflex noted, EOM's intact. Eyelids symmetrical without lesions, discharge, or swelling. ENT: Bilateral TM's WNL, External ear normal to inspection, no mastoid TTP, swelling, or erythema, Nasal turbinates erythematous and boggy, nasal discharge. Normal dentition, Posterior pharynx erythemic, questionable exudate. Chest: RRR, Normal S1, S2, distal pulses intact. Resp: Lungs mild expiratory rhonchi to the right lower lobe. No wheezing. Abdomen: Soft, non-distended, Normoactive bowel sounds all 4 quads. Musculoskeletal: Normal gait, 5/5 strength to all four extremities. Skin: No suspicious rashes or lesions. Capillary refill less than 2 sec. Neurologic: Cranial nerves II-XII intact. Alert and oriented x 3. Motor: No deficits noted. Sensory: Intact bilaterally all 4 extremities. Reflexes: DTR's intact bilaterally.. Hematologic/Lymphatic: No ecchymosis, no lymphadenopathy. Course Vital Signs Vital signs: Vital Signs Temperature 36.3 C L 10/03/21 17:00 Pulse 80 10/03/21 17:00 Respiratory Rate 18 10/03/21 17:00 Blood Pressure 160/81 H 10/03/21 17:00 Pulse Oximetry 99 10/03/21 17:00 Temperature 36.3 C L 10/03/21 17:00 Temperature Source Skin 10/03/21 17:00 Pulse 80 10/03/21 17:00 Respiratory Rate 18 10/03/21 17:00 Blood Pressure 160/81 H 10/03/21 17:00 Blood Pressure Position Sitting 10/03/21 17:00 Pulse Oximetry 99 10/03/21 17:00 Oxygen Delivery Method Room Air 10/03/21 17:00 Oxygen Flow Rate 0 10/03/21 17:00 Pain Level 8 10/03/21 17:00 Lab/Test Results Lab/Test Results: 10/03/21 17:40 Tonsil - Not Specified Group A Streptococcus Culture - Pending
[2021-10-03] MEDS: Amoxicillin 875/Clav. 125 TAB PO (18:29)
[2021-10-03] MEDS: Albuterol/Ipratropium 3 ML UPD VIAL UPD (18:29)
--- NOTE | 2021-10-03 18:53 | DI.VRAD_ITS ---
PROCEDURE INFORMATION: Exam: XR Chest Exam date and time: 10/03/2021 6:09 PM Age: 60 years old Clinical indication: Other: R/O pna, HX copd TECHNIQUE: Imaging protocol: XR of the chest. Views: 1 view. COMPARISON: CR XR CHEST 2V PA LATERAL 01/04/2021 10:08 AM FINDINGS: Lungs: Unremarkable. No consolidation. Pleural spaces: Unremarkable. No pleural effusion. No pneumothorax. Heart/Mediastinum: Unremarkable. No cardiomegaly. Bones/joints: Unremarkable. IMPRESSION: No acute findings. Dictated and Authenticated by: Salma Davis MD. Ordering:LIONEL Garcia MD
[2021-10-05 13:57] LABS: COVID-19 RT-PCR UVMMC Result Negative (Negative)
== END 2021-10-03 19:18 | disposition home or self-care (01) ==
PROVIDERS: Emergency Provider Registered Nurse Emergency; PCP Family Medicine
DX: J01.80 Other acute sinusitis (principal); J06.9 Acute upper respiratory infection, unspecified; F17.210 Nicotine dependence, cigarettes, uncomplicated; J44.9 Chronic obstructive pulmonary disease, unspecified
CPT/HCPCS: 87880; 94640; 99283; U0003; U0005; 71045; 87081; J7620

== ENCOUNTER 2021-10-13 20:22 | Outpatient (REF) | payer MEDICARE, MEDICAID, SELFPAY ==
[2021-10-15 11:50] LABS: COVID-19 RT-PCR UVMMC Result Negative (Negative)
== END 2021-10-13 20:23 | disposition home or self-care (01) ==
LOC: LBN 20:22
PROVIDERS: PCP Family Medicine; Visit Provider Nurse Practitioner Family
DX: J02.9 Acute pharyngitis, unspecified (principal); H92.01 Otalgia, right ear; Z20.822 Contact with and (suspected) exposure to COVID-19
CPT/HCPCS: U0003; U0005; 87070

== ENCOUNTER 2021-11-11 07:49 | Emergency (ER) | payer MEDICARE, MEDICAID, SELFPAY ==
[2021-11-11] VITALS (17 sets, daily range): BP systolic 122–137; BP diastolic 54–77; PULSE 56–78; RESP 10–20; TEMP 36.3–36.6; O2SAT 94–98
--- NOTE | 2021-11-11 07:45 | RT.EKG_ITS ---
APPROVED REPORT Exam: Resting ECG Reason for Exam: CHEST PAIN Patient Location: E HR:77 bpm ECG Measurements Heart Rate 77 AXIS IL 167 P 46 QRSd 93 QRS 25 QT 386 T 60 QTc 436 Conclusion Sinus rhythm...normal P axis, V-rate 60- 99 Probable LVH with secondary repol abnrm...multiple LVH criteria. Sinus. Normal axis. No STEMI. I have reviewed and interpreted ECG and agree with software generated interpretation.
--- NOTE | 2021-11-11 08:03 | ED.GENADUL_ITS ---
Discharge Plan Disposition Patient Disposition: HOME Condition: Stable Discharge Details Clinical Impression: Chronic abdominal pain, Abdominal bloating, Elevated troponin Primary Care Provider: Luis E Narayan ED Provider: Cinda Doe Home Meds and New Rx's Prescriptions: New simethicone 125 mg tablet,chewable 125 mg PO TID PRN (Reason: abdominal distention) Qty: 30 0RF Continued budesonide-formoterol [Symbicort] 80-4.5 mcg/actuation HFA aerosol inhaler 2 puff Inhalation BID Qty: 3 11RF (DME) Aerochamber MV spacer See Dose Instructions .Route .MEDSUPPLY Qty: 1 0RF Dose Instruction: As directed Rx Instructions: As directed nicotine 14 mg/24 hr patch 24 hour 1 patch TD DAILY Qty: 21 2RF Label Comments: not currently using fluticasone propionate [Flonase Allergy Relief] 50 mcg/actuation spray,suspension 1 spray KUMAR BID PRN (Reason: nasal congestion) Qty: 9.9 3RF Rx Instructions: administer into each nostril loratadine [Claritin] 10 mg tablet 10 mg PO DAILY 0RF lorazepam 1 mg tablet 0.5 - 1 mg PO BID PRN (Reason: anxiety) Qty: 30 0RF Rx Instructions: 12/06/ PT USES 1 MG AT HS AND 0.5 MG AT NOON nitroglycerin 0.4 mg tablet, sublingual 0.4 mg Sublingual PRN Qty: 25 2RF Rx Instructions: 1 TAB SL PRN melatonin 10 mg capsule 10 mg PO HS PRN0RF Adult 50 Plus Probiotic 4 billion cell capsule 4,000 mmu cells PO DAILY Qty: 30 0RF Rx Instructions: administer with a meal acetaminophen [Tylenol] 325 MG tablet 650 mg PO Q4H PRN 0RF CPAP 0RF (DME) lancets [OneTouch Delica Lancets] 1 EACH misc 1 ea Intradermal BID Qty: 200 4RF Rx Instructions: DX: 250.00 (DME) OneTouch Ultra Test 1 EACH strip 1 strip Miscellaneous DAILY Qty: 100 3RF Rx Instructions: DX: 250.00 oral meds amlodipine 5 mg tablet 5 mg PO DAILY Qty: 90 4RF Rx Instructions: 1 TAB DAILY clopidogrel [Plavix] 75 mg tablet 75 mg PO DAILY Qty: 90 4RF Metoprolol Succinate 25 MG TAB.ER.24H 25 mg PO DAILY Qty: 90 4RF Rx Instructions: 1 TAB DAILY simvastatin 10 mg tablet 10 mg PO DAILY Qty: 90 4RF Rx Instructions: 1 TAB DAILY losartan [Cozaar] 100 mg tablet 100 mg PO DAILY Qty: 90 4RF Rx Instructions: 1 TAB DAILY albuterol sulfate [Ventolin HFA] 90 mcg/actuation HFA aerosol inhaler 2 puff IH Q4H PRN (Reason: shortness of breath or wheezing) Qty: 8.5 11RF aspirin 81 mg Tablet,Delayed Release (Dr/Ec) 81 mg PO DAILY 0RF lamotrigine 100 mg tablet 100 mg PO QAM 0RF Label Comments: TAKE ONE TABLET BY MOUTH TWICE A DAY buspirone 15 mg tablet 15 mg PO BID 0RF Label Comments: TAKE ONE TABLET BY MOUTH TWICE A DAY trazodone 50 mg tablet 100 mg PO HS PRN 0RF Rx Instructions: 1-tab at HS PRN omeprazole 20 mg capsule,delayed release(DR/EC) 40 mg PO DAILY Qty: 90 3RF Rx Instructions: 1 CAP DAILY metformin 500 mg tablet 1,000 mg PO BID 0RF (DME) blood-glucose meter [FreeStyle Lite Meter] Kit See Rx Instructions .ROUTE .MEDSUPPLY Qty: 1 0RF Rx Instructions: As directed (DME) FreeStyle Lite Strips Strip See Rx Instructions .ROUTE .MEDSUPPLY Qty: 10 0RF Rx Instructions: As directed Discharge Instructions Instructions: Gas and Bloating (ED), Chronic Abdominal Pain (ED) Additional Instructions: Your lab work today revealed that your troponin which is a heart enzyme blood test was elevated. It has been similarly elevated in the past. Your EKGs today are within normal limits. As you have no complaint of chest pain, it is recommended that you have further evaluation with an outpatient nuclear stress test which has been scheduled for you. You will be contacted by the radiology department regarding scheduling of this test for further evaluation of your heart. Your ultrasound and CT scan today showed no evidence of acute concerning or significant findings. You have been scheduled for an outpatient HIDA scan by general surgery for further evaluation of your chronic abdominal pain. You will be contacted for scheduling of this test. A prescription for simethicone has been sent electronically to your pharmacy. Take this as needed and directed for gas and bloating. Follow-up with your primary care doctor and general surgery in 1 week. Return to the emergency department with any worsening or new concerning symptoms such as fever, chest pain, shortness of breath, persistent vomiting or any other concerns. Referrals: Kelsey Pacheco DO [OSTEOPATHIC DOCTOR] - Discharge Data Discharge Date/Time-TO BE ENTERED AT DEPARTURE: 11/11/21 12:59 Discharge Physician: Cinda Doe Medical Decision Making 0800 -- 61-year-old female with a history of morbid obesity, anxiety, depression, COPD, diabetes, GERD, hypertension, hyperlipidemia, NH and coronary stent placement who presents with epigastric pain and bloating for the past several years, worse over the past week. Records note that she had an EGD and colonoscopy in March 2021 which noted a normal stomach and GE junction but with a tubular adenoma and hyperplastic polyp on colonoscopy. She states she has been on Carafate 4 times daily and previously had relief but none for the last week EKG on arrival notes a rate of 77, sinus, normal axis and no STEMI. Her vitals are within normal limits. Her abdomen is bloated and tender mainly in the epigastrium. Differential diagnosis includes acute on chronic epigastric pain, gastritis, PUD, GERD, cholelithiasis, cholecystitis, pancreatitis. Will place an IV, bolus IV fluids, screening labs, CT abdomen pelvis, gallbladder ultrasound and give IV Pepcid, GI cocktail, Zofran and reassess. 0930 -- labs and imaging reviewed and note an elevated troponin which has been patient's previous baseline. Troponin 90 and she has had a similar result in the past and it was thought to be not related to ACS. Normal white blood cell count. Normal electrolytes. Lipase normal. Urinalysis negative. Abdominal ultrasound notes fatty liver otherwise no acute findings. CT abdomen pelvis negative. 1100 -- patient reassessed and she feels better. 1145 -- Repeat troponin downtrending to 82. Repeat EKG unchanged. Review of rec ords notes that patient had an echocardiogram and exercise stress test in August 2019 which was essentially unremarkable. This was after an ED visit in August 2020 which noted elevated troponins and she was discharged home with plan for follow-up with these tests. Case discussed with hospitalist. Patient denies any chest pain at any time and states it has mainly been diffuse abdominal pain and bloating. As her troponins are downtrending with unremarkable EKGs, will recommend follow-up for a Nuclear MPI Stress test which has been ordered. Discussed results with patient and she again denies any chest pain at any point and states it is mainly her chronic abdominal bloating. She would like to go home at this time. 1230 --Case discussed with Dr. Pacheco. She has ordered a HIDA scan for further evaluation as an outpatient. Agrees with plan for the simethicone. She was informed of plan for the outpatient MPI stress test. Patient placed on surgery follow-up list. Advised to follow up with the primary care doctor for re- evaluation. Usual and customary return precautions given prior to discharge. Medical Records Medical records reviewed: Yes I reviewed the patient's medical records. Medical records narrative: 08/20/2020 Echocardiogram Conclusion Left Ventricle : The left ventricle is normal size. The left ventricular systolic function is normal. The left ventricular ejection fraction is within the normal range. There is normal left ventricular wall thickness. There is normal LV segmental wall motion. The left ventricular diastolic function is normal. LVEF is 55%. Right Ventricle : The right ventricle is normal size. The right ventricular systolic function is normal. Atria : The left atrium size is normal. The right atrium size is normal. Mitral Valve : The mitral valve is normal in structure. Mild mitral regurgitation. No evidence of mitral valve stenosis. Great Vessels : The aortic root is normal in size. The ascending aorta is mildly dilated. IVC is normal in size and collapses >50% with inspiration. See remainder of report for further details. 08/20/20 Exercise Stress test Stress ECG Conclusion 1. Patient exercised for 7 minutes (8 METS).? Patient no symptoms suggestive of ischemia. 2. Patient had normal blood pressure and heart rate response to exercise. 3. There is no evidence of ischemia on ECG portion exam. Flanagan Treadmill Score is 6 which is Low risk. Imaging Data Radiologic Study: Radiologist's impression: US ABDOMEN LIMITED INDICATION:? epigastric pain/bloating, r/o cholecystitis COMPARISON:? US US ECHOCARDIOGRAM from 08/20/2020 TECHNIQUE:? Ultrasound abdomen performed using standard protocol FINDINGS: Abdominal ultrasound was performed according to the usual protocol. The liver is normal in size and shape. No focal hepatic lesion seen.? There is increased echogenicity of hepatic parenchyma consistent with hepatic steatosis. There is no evidence of cholelithiasis or biliary dilatation. No gallbladder wall thickening or pericholecystic fluid collection. Portal venous flow is hepatopetal. Pancreas appears intact as visualized. Spleen is unremarkable in appearance with no focal lesion. Kidneys are normal in size and shape. No renal mass, hydronephrosis, or nephrolithiasis. Abdominal aorta and IVC are of normal diameter. IMPRESSION: Probable hepatic steatosis, otherwise negative abdominal ultrasound . CT ABDOMEN ? PELVIS W INDICATION:? epigastric pain, r/o cholecystitis, cholelithiasis. COMPARISON:? CT CT ABDOMEN ? PELVIS W from 02/11/2021 TECHNIQUE:? FINDINGS: CT examination of the abdomen and pelvis was performed with a bolus infusion of 100 cc of Omnipaque 350.? Images obtained through the lung bases are unremarkable. The liver is unremarkable in appearance. Gallbladder and bile ducts are CT normal. Pancreas appears normal. Spleen is unremarkable in appearance. 14 millimeter left adrenal again noted, unchanged from examination of February 2021. The kidneys are unremarkable with no evidence of hydronephrosis, nephrolithiasis, or renal mass..? Urinary bladder unremarkable. Abdominal aorta is of normal diameter and no major vascular abnormality is seen. No abdominal wall hernia. No abdominal or pelvic adenopathy. [employer] structures appear intact. Appendix is normal. No evidence of diverticulitis or bowel obstruction. IMPRESSION: Negative CT examination of the abdomen and pelvis. Lab Data Lab results reviewed: Yes I reviewed the patient's lab results. Labs: Laboratory Tests Range/Units 11/11/21 11/11/21 11/11/21 08:05 08:05 09:17 WBC (4.4-10.8) 10^3/uL 10.11 RBC (3.93-5.22) 10^6/uL 5.01 Hgb (11.2-15.7) g/dL 14.4 Hct (36.0-46.0) % 43.5 MCV (80-95) fL 87 MCH (27.0-33.0) pg 28.7 MCHC (32.0-36.0) % 33.1 RDW (11.7-14.6) % 13.9 Plt Count (130-400) 10^3/uL 395 MPV (8.0-11.0) fL 9.4 Immature Gran % 0.4 Neutrophils % 71.0 Lymphocytes % 20.1 Monocytes % 6.7 Eosinophils % 1.2 Basophils % 0.6 Nucleated RBC % (0.0-0.3) % 0.0 Absolute Neutrophils (1.2-6.7) 10^3/uL 7.18 H Absolute Lymphocytes (1.2-3.4) 10^3/uL 2.03 Absolute Monocytes (0.1-0.8) 10^3/uL 0.68 Absolute Eosinophils (0.0-0.7) 10^3/uL 0.12 Absolute Basophils (0.0-0.2) 10^3/uL 0.06 Sodium (136-145) mmol/L 137 Potassium (3.5-5.1) mmol/L 4.1 Chloride (98-107) mmol/L 102 Carbon Dioxide (21.0-32.0) mmol/L 27.7 Anion Gap (3-11) mmol/L 7.3 BUN (7-18) mg/dL 16 Creatinine (0.55-1.02) mg/dL 1.1 H Estimated GFR/1.73 m2 (mL/min/1.73m2) 50.33 Glucose (74-106) mg/dL 182 H Calcium (8.5-10.1) mg/dL 9.8 Magnesium (1.8-2.4) mg/dL 2.9 H Total Bilirubin (0.2-1.0) mg/dL 0.7 AST (15-37) U/L 28 ALT (14-59) U/L 47 Alkaline Phosphatase (46-116) U/L 113 Troponin I (<or=60) ng/L 91 H* Total Protein (6.4-8.2) g/dL 7.9 Albumin (3.4-5.0) g/dL 4.2 Lipase (73-393) U/L 147 Urine Color (Yellow) Yellow Urine Clarity (Clear) Clear Urine pH (5-8) 6.0 Ur Specific [place] (1.005-1.025) 1.015 Urine Protein (Negative) mg/dL Negative Urine Ketones (Negative) mg/dL Negative Urine Blood (Negative) Negative Urine Nitrite (Negative) Negative Urine Bilirubin (Negative) Negative Urine Urobilinogen (Up TO 0.2) EU/dL 0.2 Ur Leukocyte Esterase (Negative) Negative Urine Glucose (Negative) mg/dL Negative Range/Units 11/11/21 11:04 WBC (4.4-10.8) 10^3/uL RBC (3.93-5.22) 10^6/uL Hgb (11.2-15.7) g/dL Hct (36.0-46.0) % MCV (80-95) fL MCH (27.0-33.0) pg MCHC (32.0-36.0) % RDW (11.7-14.6) % Plt Count (130-400) 10^3/uL MPV (8.0-11.0) fL Immature Gran % Neutrophils % Lymphocytes % Monocytes % Eosinophils % Basophils % Nucleated RBC % (0.0-0.3) % Absolute Neutrophils (1.2-6.7) 10^3/uL Absolute Lymphocytes (1.2-3.4) 10^3/uL Absolute Monocytes (0.1-0.8) 10^3/uL Absolute Eosinophils (0.0-0.7) 10^3/uL Absolute Basophils (0.0-0.2) 10^3/uL Sodium (136-145) mmol/L Potassium (3.5-5.1) mmol/L Chloride (98-107) mmol/L Carbon Dioxide (21.0-32.0) mmol/L Anion Gap (3-11) mmol/L BUN (7-18) mg/dL Creatinine (0.55-1.02) mg/dL Estimated GFR/1.73 m2 (mL/min/1.73m2) Glucose (74-106) mg/dL Calcium (8.5-10.1) mg/dL Magnesium (1.8-2.4) mg/dL Total Bilirubin (0.2-1.0) mg/dL AST (15-37) U/L ALT (14-59) U/L Alkaline Phosphatase (46-116) U/L Troponin I (<or=60) ng/L 82 H* Total Protein (6.4-8.2) g/dL Albumin (3.4-5.0) g/dL Lipase (73-393) U/L Urine Color (Yellow) Urine Clarity (Clear) Urine pH (5-8) Ur Specific [place] (1.005-1.025) Urine Protein (Negative) mg/dL Urine Ketones (Negative) mg/dL Urine Blood (Negative) Urine Nitrite (Negative) Urine Bilirubin (Negative) Urine Urobilinogen (Up TO 0.2) EU/dL Ur Leukocyte Esterase (Negative) Urine Glucose (Negative) mg/dL ECG Data Attestation: I personally reviewed and interpreted this ECG (s) as follows: Interpretation: #1 -- Rate of 77, sinus, normal axis, no STEMI. #2 -- Rate of 69, sinus, normal axis, no STEMI. HPI General Mode of arrival: ambulatory . Date/Time Provider Initiated Documentation: 11/11/21 08:00 . Limitations to Documentation: no limitations . Information obtained by: patient . HPI Narrative: Patient is a 61-year-old female with a history of anxiety, depression, COPD, hypertension, hyperlipidemia, morbid obesity, GERD, NH, diabetes who has a history of chronic abdominal bloating and pressure for the past few years, worse over the past week. She states she mainly has epigastric discomfort but denies anterior chest pain. She denies any radiation of pain to her back, jaw, shortness of breath, vomiting or fever. She states she has had an endoscopy and colonoscopy which she was told have been unremarkable for acute findings of her epigastric pain. She states she is on liquid Carafate 4 times daily since the past week. She states she used to have relief with this but states her pain is getting worse. She denies any known relation to food. She states she is trying to lose weight. She does admit to increased urinary frequency which she feels is due to abdominal bloating. Related Data Home Medications Medication Instructions Recorded Confirmed Cpap 10/24/12 10/13/21 acetaminophen 325 mg tablet 650 mg PO Q4H PRN tab-cap 10/24/12 11/11/21 (Tylenol) lancets 33 gauge (OneTouch Delica #200 ea 12/15/12 11/11/21 Lancets) blood sugar diagnostic (joblocalTouch #100 strip 01/24/14 11/11/21 Ultra Test) budesonide-formoterol HFA 80 2 puff INHALATION BID #3 gm 05/01/18 11/11/21 mcg-4.5 mcg/actuation aerosol inhaler (Symbicort) inhalational spacing device #1 each 05/01/18 11/11/21 (Aerochamber MV) nitroglycerin 0.4 mg sublingual 0.4 mg SUBLINGUAL PRN #25 tab-cap 05/04/18 11/11/21 tablet amlodipine 5 mg tablet 5 mg PO DAILY #90 tab-cap 07/27/18 11/11/21 clopidogrel 75 mg tablet (Plavix) 75 mg PO DAILY #90 tab 07/27/18 11/11/21 simvastatin 10 mg tablet 10 mg PO DAILY #90 tab-cap 07/31/11/11/21 losartan 100 mg tablet (Cozaar) 100 mg PO DAILY #90 tab-cap 12/27/18 11/11/21 nicotine 14 mg/24 hr daily 1 patch TD DAILY #21 each 01/30/19 11/11/21 transdermal patch fluticasone propionate 50 1 spray KUMAR BID PRN #9.9 gm 02/03/19 11/11/21 mcg/actuation nasal spray,suspension (Flonase Allergy Relief) loratadine 10 mg tablet (Claritin) 10 mg PO DAILY 02/03/19 11/11/21 lorazepam 1 mg tablet 0.5 - 1 mg PO BID PRN #30 tab 02/19/19 11/11/21 albuterol sulfate 90 mcg/actuation 2 puff IH Q4H PRN #8.5 gm 08/29/19 11/11/21 aerosol inhaler (Ventolin HFA) metformin 500 mg tablet 1,000 mg PO BID 09/12/19 11/11/21 aspirin 81 mg tablet,delayed 81 mg PO DAILY 08/17/20 11/11/21 release buspirone 15 mg tablet 15 mg PO BID 08/17/20 11/11/21 lamotrigine 100 mg tablet 100 mg PO QAM 08/17/20 11/11/21 trazodone 50 mg tablet 100 mg PO HS PRN 08/17/20 11/11/21 blood sugar diagnostic (FreeStyle #10 ea 12/06/20 11/11/21 Lite Strips) blood-glucose meter (FreeStyle #1 ea 12/06/20 11/11/21 Lite Meter) melatonin 10 mg capsule 10 mg PO HS PRN 02/23/21 11/11/21 omeprazole 20 mg capsule,delayed 40 mg PO DAILY #90 tab-cap 03/10/21 11/11/21 release lactobacillus combination no.9 4 4,000 mmu cells PO DAILY #30 cap 10/13/21 11/11/21 billion cell capsule (Adult 50 Plus Probiotic) simethicone 125 mg chewable tablet 125 mg PO TID PRN #30 tab 11/11/21 Previous Rx's Medication Instructions Recorded budesonide-formoterol HFA 80 2 puff INHALATION BID #3 gm 05/01/18 mcg-4.5 mcg/actuation aerosol inhaler (Symbicort) inhalational spacing device #1 each 05/01/18 (Aerochamber MV) nitroglycerin 0.4 mg sublingual 0.4 mg SUBLINGUAL PRN #25 tab-cap 05/04/18 tablet amlodipine 5 mg tablet 5 mg PO DAILY #90 tab-cap 07/27/18 clopidogrel 75 mg tablet (Plavix) 75 mg PO DAILY #90 tab 07/27/18 simvastatin 10 mg tablet 10 mg PO DAILY #90 tab-cap 07/31/18 losartan 100 mg tablet (Cozaar) 100 mg PO DAILY #90 tab-cap 12/27/18 nicotine 14 mg/24 hr daily 1 patch TD DAILY #21 each 01/30/19 transdermal patch fluticasone propionate 50 1 spray KUMAR BID PRN #9.9 gm 02/03/19 mcg/actuation nasal spray,suspension (Flonase Allergy Relief) lorazepam 1 mg tablet 0.5 - 1 mg PO BID PRN #30 tab 02/19/19 albuterol sulfate 90 mcg/actuation 2 puff IH Q4H PRN #8.5 gm 08/29/19 aerosol inhaler (Ventolin HFA) blood sugar diagnostic (FreeStyle #10 ea 12/06/20 Lite Strips) blood-glucose meter (FreeStyle #1 ea 12/06/20 Lite Meter) omeprazole 20 mg capsule,delayed 40 mg PO DAILY #90 tab-cap 03/10/21 release lactobacillus combination no.9 4 4,000 mmu cells PO DAILY #30 cap 10/13/21 billion cell capsule (Adult 50 Plus Probiotic) simethicone 125 mg chewable tablet 125 mg PO TID PRN #30 tab 11/11/21 Allergies Allergy/AdvReac Type Severity Reaction Status Date / Time azithromycin AdvReac Mild Nausea Verified 11/11/21 08:01 codeine AdvReac Mild Nausea Verified 11/11/21 08:01 erythromycin base AdvReac Mild Nausea Verified 11/11/21 08:01 ibuprofen AdvReac Mild Nausea Verified 11/11/21 08:01 lisinopril AdvReac Mild cough Verified 11/11/21 08:01 NSAIDS (Non-Steroidal AdvReac Mild Nausea Verified 11/11/21 08:01 Anti-Inflamma General Stated Complaint: Abd Prob MONICA: 3 Review of Systems All systems reviewed & are unremarkable except as noted in HPI and below Constitutional Constitutional: Denies chills, Denies excessive sweating, Denies fatigue, Denies fever(s), Denies weakness and Denies weight loss Eyes Eyes: Reports system reviewed and no additional complaints, except as documented and Denies blurry vision ENT Ears, Nose, Mouth, and Throat: Denies vertigo, Denies dizziness, Denies otalgia, Denies nasal congestion, Denies sore throat and Denies throat swelling Cardiovascular Cardiovascular: Denies chest pain, Denies syncope, Denies rapid heart rate and Denies dyspnea Respiratory Respiratory: Denies chest congestion, Denies cough, Denies pain on inspiration and Denies dyspnea Gastrointestinal Gastrointestinal: Reports abdominal pain, Reports bloating, Denies diarrhea, Reports nausea and Denies vomiting Genitourinary Genitourinary: Denies hematuria, Denies dysuria and Denies flank pain Musculoskeletal Musculoskeletal: Denies back pain and Denies joint swelling Integumentary/Breasts Skin/Breast: Denies lesions and Denies rash Neurologic Neurologic: Denies behavioral changes, Denies confusion, Denies vertigo, Denies dizziness, Denies syncope, Denies localized weakness and Denies weakness Psychiatric Psychiatric: Denies behavioral changes, Denies confusion and Denies depression Endocrine Endocrine: Denies excessive sweating and Denies fatigue Hematologic/Lymphatic Hematologic/Lymphatic: Denies easy bruising and Denies lymphadenopathy Allergic/Immunologic Allergic/Immunologic: Denies throat swelling PFSH All Active Problems (Updated 11/11/21 @ 14:55 by Kelsey Pacheco DO) Epigastric pain (Acute) Chronic abdominal pain (Acute) Abdominal bloating (Acute) Elevated troponin (Acute) Hyperplastic colon polyp (Acute) ASCVD (arteriosclerotic cardiovascular disease) (Acute) 10/15 anterolat NSTE NH; stent x 4; 10/15 echo-EF 55%; inf.wall hypokinesis; mild Anxiety (Acute) after NH decreased memory/concentration--[facility] neurology COPD (chronic obstructive pulmonary disease) (Acute) continues to smoke Depressive disorder (Acute) fatigue Diabetic peripheral neuropathy associated with type 2 diabetes mellitus (Acute 03/03/16) Essential hypertension (Acute 05/03/13) Urinary, incontinence, stress female (Acute 09/13/13) Heart murmur (Acute 09/13/13) 10/21 echo LVEF 70% with LVH, aoritc valve thickened but opens well (no signif aortic stenosis) [facility] Echo 02/05/19 - LVH (mild-mod), EeF= 60-65%, systolic function normal, ascending aorta mildly dilated Hyperlipidemia (Acute 12/18/12) Morbid obesity (Acute) Numbness and tingling in right hand (Acute 03/03/16) Obstructive sleep apnea syndrome (Acute 03/27/10) [facility] sleep lab Pap smear abnormality of cervix with LGSIL (Acute) LGSIL +HPV; BX darcie I Postmenopausal bleeding (Acute 09/21/11) atypical endometrial hyperplasia Sciatica (Acute 07/04/13) left sciatica, MRI [facility] 07/22/13: L3-4 disc extrusion Skin tags, multiple acquired (Acute 02/15/16) Smoker (Acute) Type II diabetes mellitus, uncontrolled (Acute) Asthma (Chronic) Status post arthroscopy of left knee (Acute) History of section (Acute) Family history of malignant neoplasm of breast (Acute 09/11/14) Fever (Acute) She is febrile and has both abdominal and chest symptoms. We will send to the emergency room. Upper respiratory infection (Acute) Hyperglycemia (Acute) Acute bronchospasm (Acute) Seasonal allergies (Acute) History of COPD (Acute) Fatty liver (Acute) Diverticulosis (Acute) Constipation (Acute) Incontinence (Acute) Pedal edema (Acute) Varicose veins of lower extremity (Acute) Bipolar disorder (Chronic) Compliant with therapeutic regimen (Acute) Caren, oral (Acute) Allergic rhinitis (Acute) Medical History Anxiety Atherosclerotic cardiovascular disease COPD (chronic obstructive pulmonary disease) Depression Heart murmur History of renal carcinoma Hx of malignant neoplasm of eye Hyperlipidemia Hypertension Morbid obesity with BMI of 40.0-44.9, adult Plantar fasciitis of left foot Sleep apnea Stress incontinence in female Surgical History Arthroplasty of knee athroscopy not arthroplasty. Cervical Procedure BX DARCIE I section (~1981) H/O esophagogastroduodenoscopy (~03/10/21) S/P colonoscopy (~03/10/21) Stent placement X 4 TO LCX-1995 Family History Mother Personal history of malignant neoplasm UTERINE CA; HYSTERECTOMY AGE 76 Uterine cancer Hysterectomy at 76 Father Heart disease Brother Diabetes Cancer Brother No problems noted. Brother No problems noted. Social History Smoking/Tobacco Use Status: Current every day Tobacco Type: cigarettes Smoking packs per day: 1 Smoking cigarettes per day: 20.0 Smoking risk assessment performed?: Yes Alcohol Intake: former Drug use: Never Substance use type: does not use Household members: significant other Housing: house Communication Needs: None Do you need help understanding health information?: Rarely Pets and animals: Yes Pets and animals: dog(s) Do you think of yourself as: straight/heterosexual Current gender identity: female What is your relationship status?: living with partner How often do you talk on the phone with friends or family?: three or more times per week How often do you get together with friends or relatives?: decline to answer How often do you attend orthodoxy or jehovah's witness services?: decline to answer Do you belong to any clubs or organized social groups?: no Panel score (0-1 are the most socially isolated patients): 2 What type of physical activity do you participate in: none Duration: < 15 minutes/day Frequency: daily Katerina/Yazidism: none Special katerina needs: No Seatbelt use: sometimes Helmet use: Yes Helmet use: always Drive intox or ride w/intox non cdl driver: No Do you feel safe at home: Yes Do you feel safe in your relationship?: Yes Exam Const General: cooperative Orientation: alert, awake and oriented x3 HENMT Head: normal to inspection Ears: hearing grossly normal bilaterally, external ears normal and TM's normal bilaterally General nose exam: external nose normal Face and sinus: normal facial exam Mouth: oral mucosae normal Teeth and gingiva: dentition normal Throat: posterior oropharynx normal Eyes General: appearance normal, both eyes and all related structures Eyelids: eyelids normal Pupils: PERRL EOM: EOM intact bilaterally Neck Neck: normal visual inspection Lymphatic: no lymphadenopathy noted Chest Chest: normal inspection of the chest Resp Effort & Inspection: normal respiratory effort and able to speak in complete sentences Auscultation: clear to auscultation bilaterally Cardio Rate: regular rate Rhythm: regular rhythm GI Inspection: normal to inspection and obesity Palpation: soft, not firm, no guarding, no hepatosplenomegaly, no masses and tender in the epigastrum, in the LUQ and in the RUQ Auscultation: hypoactive bowel sounds Back/Spine/Pelvis Back: no CVA tenderness Skin General skin exam: no rashes or lesions noted Neuro General: patient alert and patient awake Cognition: normal cognition Speech: speech normal Gait: normal gait Motor: muscle tone normal throughout Sensory Exam: no sensory deficits noted Extrem General: normal to inspection, full ROM and capillary refill normal Psych Appearance: grossly normal Mental Status: mental status grossly normal Speech and Movement: speech and movement normal Affect: normal affect Thought Process: normal Course Vital Signs Vital signs: Vital Signs Temperature 97.3 F L 11/11/21 07:53 Pulse 78 11/11/21 07:53 Respiratory Rate 15 11/11/21 07:53 Blood Pressure 127/77 11/11/21 07:53 Pulse Oximetry 98 11/11/21 07:53 Temperature 97.3 F L 11/11/21 07:53 Pulse 78 11/11/21 07:53 Respiratory Rate 15 11/11/21 07:53 Blood Pressure 127/77 11/11/21 07:53 Pulse Oximetry 98 11/11/21 07:53 Oxygen Delivery Method Room Air 11/11/21 07:53 Oxygen Flow Rate 0 11/11/21 07:53 Pain Level 8 11/11/21 07:53
[2021-11-11 08:12] LABS: Abs Immature Grans 0.04 10^3/uL (0.0-0.06); Absolute Basophil Count 0.06 10^3/uL (0.0-0.2); Absolute Eosinophil Count 0.12 10^3/uL (0.0-0.7); Absolute Lymphocyte Count 2.03 10^3/uL (1.2-3.4); Absolute Monocyte Count 0.68 10^3/uL (0.1-0.8); Absolute Neutrophil Count 7.18 10^3/uL (1.2-6.7); Basophils % 0.6; Eosinophils % 1.2; HCT 43.5 % (36.0-46.0); HGB 14.4 g/dL (11.2-15.7); Immature Grans % 0.4; Lymphocytes % 20.1; MCH 28.7 pg (27.0-33.0); MCHC 33.1 % (32.0-36.0); MCV 87 fL (80-95); MPV 9.4 fL (8.0-11.0); Monocytes % 6.7; Platelet Count 395 10^3/uL (130-400); RBC 5.01 10^6/uL (3.93-5.22); RDW 13.9 % (11.7-14.6); RDW-SD 44.4 fL; WBC 10.11 10^3/uL (4.4-10.8)
--- NOTE | 2021-11-11 08:15 | DI.CT_ITS ---
Exam(s) CT ABDOMEN PELVIS W EXAM: CT ABDOMEN PELVIS W INDICATION: epigastric pain, r/o cholecystitis, cholelithiasis. COMPARISON: CT CT ABDOMEN PELVIS W from 02/11/2021 TECHNIQUE: FINDINGS: CT examination of the abdomen and pelvis was performed with a bolus infusion of 100 cc of Omnipaque 3 50. Images obtained through the lung bases are unremarkable. The liver is unremarkable in appearance. Gallbladder and bile ducts are CT normal. Pancreas appears normal. Spleen is unremarkable in appearance. 14 millimeter left adrenal again noted, unchanged from examination of February 2021. The kidneys are unremarkable with no evidence of hydronephrosis, nephrolithiasis, or renal mass.. Ur inary bladder unremarkable. Abdominal aorta is of normal diameter and no major vascular abnormality is seen. No abdominal wall hernia. No abdominal or pelvic adenopathy. TOURIST CABIN KEEPER structures appear intact. Appendix is normal. No evidence of diverticulitis or bowel obstruction. IMPRESSION: Negative CT examination of the abdomen and pelvis. RADIATION DOSE DELIVERED: 931.35mGy.cm Total DLP 931.35mGy.cm Total DLP !Error CTDIvol RADIATION OPTIMIZATION: All CT scans at this facility use at least one of these dose optimization te chniques: automated exposure control; mA and/or kV adjustment per patient size (includes targeted exa ms where dose is matched to clinical indication); or iterative reconstruction.
--- NOTE | 2021-11-11 08:15 | DI.US_ITS ---
Exam(s) US ABDOMEN LIMITED EXAM: US ABDOMEN LIMITED INDICATION: epigastric pain/bloating, r/o cholecystitis COMPARISON: US US ECHOCARDIOGRAM from 08/20/2020 TECHNIQUE: Ultrasound abdomen performed using standard protocol FINDINGS: Abdominal ultrasound was performed according to the usual protocol. The liver is normal in size and shape. No focal hepatic lesion seen. There is increased echogenicity of hepatic parenchyma consistent with hepatic steatosis. There is no evidence of cholelithiasis or biliary dilatation. No gallbladder wall thickening or peric holecystic fluid collection. Portal venous flow is hepatopetal. Pancreas appears intact as visualized. Spleen is unremarkable in appearance with no focal lesion. Kidneys are normal in size and shape. No renal mass, hydronephrosis, or nephrolithiasis. Abdominal aorta and IVC are of normal diameter. IMPRESSION: Probable hepatic steatosis, otherwise negative abdominal ultrasound .
[2021-11-11 08:30] LABS: ALT 47 U/L (14-59); AST 28 U/L (15-37); Albumin 4.2 g/dL (3.4-5.0); Alkaline Phosphatase 113 U/L (46-116); Anion Gap 7.3 mmol/L (3-11); BUN 16 mg/dL (7-18); Bilirubin, Total 0.7 mg/dL (0.2-1.0); CO2 27.7 mmol/L (21.0-32.0); CREATININE 1.1 mg/dL (0.55-1.02); Calcium 9.8 mg/dL (8.5-10.1); Chloride 102 mmol/L (98-107); Estimated GFR 50.33 (mL/min/1.73m2); Glucose 182 mg/dL (74-106); Lipase 147 U/L (73-393); Magnesium 2.9 mg/dL (1.8-2.4); Potassium 4.1 mmol/L (3.5-5.1); Sodium 137 mmol/L (136-145); Total Protein 7.9 g/dL (6.4-8.2)
[2021-11-11 08:32] LABS: Troponin I 91 ng/L (<or=60)
[2021-11-11] MEDS: Omnipaque 350 MG/ML 100 ML BTL IV (08:42)
[2021-11-11] MEDS: Normal Saline 1,000 ML 1000 ML IV (09:19)
[2021-11-11] MEDS: Ondansetron 4 MG/2 ML VIAL IVP (09:19)
[2021-11-11] MEDS: Famotidine 20 MG/2 ML VIAL IVP (09:27)
[2021-11-11 09:28] LABS: Bilirubin Negative (Negative); Blood Negative (Negative); Clarity Clear (Clear); Glucose Negative (Negative); Ketones Negative (Negative); Leukocyte Esterase Negative (Negative); Nitrite Negative (Negative); Specific Gravity 1.015 (1.005-1.025); Urobilinogen 0.2 EU/dL (Up TO 0.2)
--- NOTE | 2021-11-11 11:00 | RT.EKG_ITS ---
APPROVED REPORT Exam: Resting ECG Reason for Exam: epigastric Patient Location: E HR:69 bpm ECG Measurements Heart Rate 69 AXIS OK 193 P 39 QRSd 94 QRS 16 QT 395 T 35 QTc 424 Conclusion Sinus rhythm...normal P axis, V-rate 60- 99 Consider left ventricular hypertrophy...(R aVL+S V3) >2.20mV Sinus. Normal axis. No STEMI. I have reviewed and interpreted ECG and agree with software generated interpretation.
[2021-11-11 11:28] LABS: Troponin I 82 ng/L (<or=60)
== END 2021-11-11 12:59 | disposition home or self-care (01) ==
PROVIDERS: Emergency Provider Physician Assistant; PCP Family Medicine
DX: R10.13 Epigastric pain (principal); G89.29 Other chronic pain; R14.0 Abdominal distension (gaseous); R79.89 Other specified abnormal findings of blood chemistry; R07.9 Chest pain, unspecified
CPT/HCPCS: 36415; 36416; 80053; 82962; 83690; 93005; 96361; 96374; 96375; 99285; 74177; 76705; 81003; 83735; 84484; 85025; 93010; 99284; J2405; J3490

== ENCOUNTER → 2021-11-24 01:22 | Outpatient (CLI) | payer MEDICARE, MEDICAID, SELFPAY ==
--- NOTE | 2021-11-24 07:15 | DI.NM_ITS ---
Exam(s) NM HEPATOBILIARY CCK GRP EXAM: NM HEPATOBILIARY CCK GRP CLINICAL HISTORY: fatty food intol/neg US EGD, CHRONIC ABD PAIN, BLOATING. TECHNIQUE: Injected dose: 5 mCi Tc-99 mebrofenin Initial dynamic images: 60 minutes Post-Gallbladder fillin.02 mcg/kg CCK intravenously over a 15min infusion. Addition images: 20 minute dynamic during CCK administration. COMPARISON: US US ABDOMEN LIMITED from 11/11/2021 FINDINGS: There is normal uptake and excretion of radiopharmaceutical by the liver and activity is seen within the gallbladder starting at 9 minutes post injection. CBD is not dilated. In response to CCK infusion there is an 83 percent (normal) ejection fraction demonstrated by the gal lbladder. IMPRESSION: Negative study. No evidence of obstruction of the cystic duct and no evidence of gallbladder dysfunc tion.
== END ==
PROVIDERS: PCP Family Medicine; Visit Provider Surgery
DX: G89.29 Other chronic pain (principal); R10.13 Epigastric pain; R10.9 Unspecified abdominal pain; R14.0 Abdominal distension (gaseous)
CPT/HCPCS: 78227

== ENCOUNTER → 2021-11-25 09:59 | Outpatient (BNVA) | payer MEDICARE, MEDICAID, SELFPAY | PROVIDERS: PCP Family Medicine; Referring Provider Family Medicine; Visit Provider Surgery | DX: R10.9 Unspecified abdominal pain (principal); G89.29 Other chronic pain; R14.0 Abdominal distension (gaseous); E66.01 Morbid (severe) obesity due to excess calories; R10.13 Epigastric pain; K52.9 Noninfective gastroenteritis and colitis, unspecified; E11.65 Type 2 diabetes mellitus with hyperglycemia; E11.42 Type 2 diabetes mellitus with diabetic polyneuropathy; K76.0 Fatty (change of) liver, not elsewhere classified | CPT/HCPCS: 99213 ==

== ENCOUNTER 2021-11-29 03:59 | Outpatient (CLI) | payer MEDICARE, MEDICAID, SELFPAY ==
[2021-12-01 12:32] LABS: IgA 227 mg/dL (85-499); Interpretation (See Note); Tissue Transglutaminase IgA <1.2 U/mL (<4.0)
== END 2021-11-29 04:00 | disposition home or self-care (01) ==
LOC: LBO 04:00
PROVIDERS: PCP Family Medicine; Visit Provider Surgery
DX: E66.01 Morbid (severe) obesity due to excess calories (principal); G89.29 Other chronic pain; K52.9 Noninfective gastroenteritis and colitis, unspecified; R10.13 Epigastric pain; R10.9 Unspecified abdominal pain; R14.0 Abdominal distension (gaseous)
CPT/HCPCS: 36415; 82784; 83516

== ENCOUNTER → 2022-01-06 09:27 | Outpatient (BNVA) | payer MEDICARE, MEDICAID, SELFPAY | PROVIDERS: PCP Family Medicine; Referring Provider Family Medicine; Visit Provider Surgery | DX: K52.9 Noninfective gastroenteritis and colitis, unspecified (principal); K75.81 Nonalcoholic steatohepatitis (NASH); R10.13 Epigastric pain; I25.10 Atherosclerotic heart disease of native coronary artery without angina pectoris; J44.9 Chronic obstructive pulmonary disease, unspecified; E66.01 Morbid (severe) obesity due to excess calories; E11.65 Type 2 diabetes mellitus with hyperglycemia | CPT/HCPCS: 99212; 99214 ==

== ENCOUNTER 2022-03-31 18:41 | Emergency (ER) | payer MEDICARE, SELFPAY ==
[2022-03-31 18:54] VITALS: BP 144/79; PULSE 87; RESP 20; TEMP 36.6; O2SAT 95
--- NOTE | 2022-03-31 20:59 | ED.GENADUL_ITS ---
Discharge Plan Disposition Patient Disposition: HOME Condition: Stable Discharge Details Clinical Impression: COPD exacerbation Primary Care Provider: Luis E Narayan ED Provider: Juanpablo Shukla Home Meds and New Rx's Prescriptions: New albuterol sulfate 2.5 mg/0.5 mL solution for nebulization 2.5 mg inhalation Q4H Qty: 30 0RF Continued budesonide-formoterol [Symbicort] 80-4.5 mcg/actuation HFA aerosol inhaler 2 puff Inhalation BID Qty: 3 11RF (DME) Aerochamber MV spacer See Dose Instructions .Route .MEDSUPPLY Qty: 1 0RF Dose Instruction: As directed Rx Instructions: As directed fluticasone propionate [Flonase Allergy Relief] 50 mcg/actuation spray,suspension 1 spray KUMAR BID PRN (Reason: nasal congestion) Qty: 9.9 3RF Rx Instructions: administer into each nostril loratadine [Claritin] 10 mg tablet 10 mg PO DAILY lorazepam 1 mg tablet 0.5 - 1 mg PO BID PRN (Reason: anxiety) Qty: 30 0RF Rx Instructions: 12/06/20 PT USES 1 MG AT HS AND 0.5 MG AT NOON prednisone 20 mg tablet 40 mg PO DAILY Qty: 10 0RF Rx Instructions: take in the morning with food. take 2 pills daily x 5 days amoxicillin-pot clavulanate 875-125 mg tablet 1 tab PO BID Qty: 14 0RF Rx Instructions: Take with meal. Take 1 pill every 12 hours x 7days doxycycline hyclate 100 mg capsule 100 mg PO BID Qty: 14 0RF Rx Instructions: Avoid sun exposure. Take with meal. Take 1 pill every 12 hours x 7 days nitroglycerin 0.4 mg tablet, sublingual 0.4 mg Sublingual PRN Qty: 25 2RF Rx Instructions: 1 TAB SL PRN melatonin 10 mg capsule 10 mg PO HS PRN Adult 50 Plus Probiotic 4 billion cell capsule 4,000 mmu cells PO DAILY Qty: 30 0RF Rx Instructions: administer with a meal pantoprazole [Protonix] 40 mg tablet,delayed release (DR/EC) 40 mg PO DAILY Qty: 30 12RF acetaminophen [Tylenol] 325 MG tablet 650 mg PO Q4H PRN CPAP (DME) lancets [OneTouch Delica Lancets] 1 EACH misc 1 ea Intradermal BID Qty: 200 Rx Instructions: DX: 250.00 (DME) OneTouch Ultra Test 1 EACH strip 1 strip Miscellaneous DAILY Qty: 100 Rx Instructions: DX: 250.00 oral meds amlodipine 5 mg tablet 5 mg PO DAILY Qty: 90 4RF Rx Instructions: 1 TAB DAILY clopidogrel [Plavix] 75 mg tablet 75 mg PO DAILY Qty: 90 4RF Metoprolol Succinate 25 MG TAB.ER.24H 25 mg PO DAILY Qty: 90 4RF Rx Instructions: 1 TAB DAILY simvastatin 10 mg tablet 10 mg PO DAILY Qty: 90 4RF Rx Instructions: 1 TAB DAILY losartan [Cozaar] 100 mg tablet 100 mg PO DAILY Qty: 90 4RF Rx Instructions: 1 TAB DAILY albuterol sulfate [Ventolin HFA] 90 mcg/actuation HFA aerosol inhaler 2 puff IH Q4H PRN (Reason: shortness of breath or wheezing) Qty: 8.5 11RF aspirin 81 mg Tablet,Delayed Release (Dr/Ec) 81 mg PO DAILY lamotrigine 100 mg tablet 100 mg PO QAM Label Comments: TAKE ONE TABLET BY MOUTH TWICE A DAY buspirone 15 mg tablet 15 mg PO BID Label Comments: TAKE ONE TABLET BY MOUTH TWICE A DAY trazodone 50 mg tablet 100 mg PO HS PRN Rx Instructions: 1-tab at HS PRN simethicone 125 mg tablet,chewable 125 mg PO TID PRN (Reason: abdominal distention) Qty: 30 0RF metformin 500 mg tablet 1,000 mg PO BID (DME) blood-glucose meter [FreeStyle Lite Meter] Kit See Rx Instructions .ROUTE .MEDSUPPLY Qty: 1 0RF Rx Instructions: As directed (DME) FreeStyle Lite Strips Strip See Rx Instructions .ROUTE .MEDSUPPLY Qty: 10 0RF Rx Instructions: As directed Discharge Instructions Instructions: COPD (Chronic Obstructive Pulmonary Disease) (ED) Additional Instructions: follow up with your primary care provider within 1 week if you feel more ill, have worsening difficulty breathing or severe pain return to the emergency department Medical Decision Making 61 yo female with hx of copd and continued smoker, comes in with feeling wheezing for 4 days. she was seen at [facility] on 03/28, placed on prednisone and augmentin and doxy and she states her cough has improved but she still feels wheezing in her chest. She denies fevers, chest pain/pressure. She appears well speaking in full sentences, stable vitals, does have diffuse wheezing in all lung hall. She states she hasn't been using her albuterol inhaler that much despite having these symptoms. Given her symptoms suspect copd exacerbation, no fevers and appears well so doubt sepsis so do not feel labs indicated. No chest pain or pressure and exam and history consistent with copd, doubt acs or pe and do not feel workup for these indicated, will reassess after duonebs, and also obtain covid test pt feels better and requesting d/c, wheezing resolved after duonebs. Given rapid improvement with nebs do not feel further testing or treatment indicated, advised to f/u with pcp and return precautions given Differential Diagnosis Differential Diagnosis: copd, uri, covid HPI General Mode of arrival: ambulatory . Date/Time Provider Initiated Documentation: 03/31/22 19:32 . Limitations to Documentation: no limitations . Information obtained by: patient . History of Present Illness 61 year old F presents to the emergency department with the chief complaint of wheezing, described as moderate, Patient started experiencing this day(s) (4) and it has been constant. No relieving factors improve symptom(s), No exacerbating factors reported . Patient notes cough. Patient did receive the following treatments prior to arrival, none Related Data Home Medications Medication Instructions Recorded Confirmed Cpap 10/24/12 01/06/22 acetaminophen 325 mg tablet 650 mg PO Q4H PRN 10/24/12 03/31/22 (Tylenol) lancets 33 gauge (OneTouch Delica #200 ea 12/15/12 03/31/22 Lancets) blood sugar diagnostic ([employer] #100 strips 01/24/14 03/31/22 Ultra Test strips) budesonide-formoterol HFA 80 2 puff inhalation BID #3 grams 05/01/18 03/31/22 mcg-4.5 mcg/actuation aerosol inhaler (Symbicort) inhalational spacing device #1 ea 05/01/18 03/31/22 (Aerochamber MV spacer) nitroglycerin 0.4 mg sublingual 0.4 mg sublingual PRN #25 tab-caps 05/04/18 03/31/22 tablet amlodipine 5 mg tablet 5 mg PO DAILY #90 tab-caps 07/27/18 03/31/22 clopidogrel 75 mg tablet (Plavix) 75 mg PO DAILY #90 tabs 07/27/18 03/31/22 simvastatin 10 mg tablet 10 mg PO DAILY #90 tab-caps 07/31/18 03/31/22 losartan 100 mg tablet (Cozaar) 100 mg PO DAILY #90 tab-caps 12/27/18 03/31/22 fluticasone propionate 50 1 spray intranasal BID PRN nasal 02/03/19 03/31/22 mcg/actuation nasal congestion #9.9 grams spray,suspension (Flonase Allergy Relief) loratadine 10 mg tablet (Claritin) 10 mg PO DAILY 02/03/19 03/31/22 lorazepam 1 mg tablet 0.5 - 1 mg PO BID PRN anxiety #30 02/19/19 03/31/22 tabs albuterol sulfate 90 mcg/actuation 2 puff inhalation Q4H PRN 08/29/19 03/31/22 aerosol inhaler (Ventolin HFA) shortness of breath or wheezing #8.5 grams metformin 500 mg tablet 1,000 mg PO BID 09/12/19 03/31/22 aspirin 81 mg tablet,delayed 81 mg PO DAILY 08/17/20 03/31/22 release buspirone 15 mg tablet 15 mg PO BID 08/17/20 03/31/22 lamotrigine 100 mg tablet 100 mg PO QAM 08/17/20 03/31/22 trazodone 50 mg tablet 100 mg PO HS PRN 08/17/20 03/31/22 blood sugar diagnostic (FreeStyle #10 ea 12/06/20 03/31/22 Lite Strips) blood-glucose meter (FreeStyle #1 ea 12/06/20 03/31/22 Lite Meter kit) melatonin 10 mg capsule 10 mg PO HS PRN 02/23/21 03/31/22 lactobacillus combination no.9 4 4,000 mmu cells PO DAILY #30 caps 10/13/21 03/31/22 billion cell capsule (Adult 50 Plus Probiotic) simethicone 125 mg chewable tablet 125 mg PO TID PRN abdominal 11/11/21 03/31/22 distention #30 tabs pantoprazole 40 mg tablet,delayed 40 mg PO DAILY #30 tabs 11/25/21 03/31/22 release (Protonix) amoxicillin 875 mg-potassium 1 tab PO BID #14 tabs 03/28/22 03/31/22 clavulanate 125 mg tablet doxycycline hyclate 100 mg capsule 100 mg PO BID #14 caps 03/28/22 03/31/22 prednisone 20 mg tablet 40 mg PO DAILY #10 tabs 03/28/22 03/31/22 albuterol sulfate 2.5 mg/0.5 mL 2.5 mg (0.5 mL) inhalation Q4H #30 03/31/22 solution for nebulization ea Previous Rx's Medication Instructions Recorded budesonide-formoterol HFA 80 2 puff inhalation BID #3 grams 05/01/18 mcg-4.5 mcg/actuation aerosol inhaler (Symbicort) inhalational spacing device #1 ea 05/01/18 (Aerochamber MV spacer) nitroglycerin 0.4 mg sublingual 0.4 mg sublingual PRN #25 tab-caps 05/04/18 tablet amlodipine 5 mg tablet 5 mg PO DAILY #90 tab-caps 07/27/18 clopidogrel 75 mg tablet (Plavix) 75 mg PO DAILY #90 tabs 07/27/18 simvastatin 10 mg tablet 10 mg PO DAILY #90 tab-caps 07/31/18 losartan 100 mg tablet (Cozaar) 100 mg PO DAILY #90 tab-caps 12/27/18 fluticasone propionate 50 1 spray intranasal BID PRN nasal 02/03/19 mcg/actuation nasal congestion #9.9 grams spray,suspension (Flonase Allergy Relief) lorazepam 1 mg tablet 0.5 - 1 mg PO BID PRN anxiety #30 02/19/19 tabs albuterol sulfate 90 mcg/actuation 2 puff inhalation Q4H PRN 08/29/19 aerosol inhaler (Ventolin HFA) shortness of breath or wheezing #8.5 grams blood sugar diagnostic (FreeStyle #10 ea 12/06/20 Lite Strips) blood-glucose meter (FreeStyle #1 ea 12/06/20 Lite Meter kit) lactobacillus combination no.9 4 4,000 mmu cells PO DAILY #30 caps 10/13/21 billion cell capsule (Adult 50 Plus Probiotic) simethicone 125 mg chewable tablet 125 mg PO TID PRN abdominal 11/11/21 distention #30 tabs pantoprazole 40 mg tablet,delayed 40 mg PO DAILY #30 tabs 11/25/21 release (Protonix) amoxicillin 875 mg-potassium 1 tab PO BID #14 tabs 03/28/22 clavulanate 125 mg tablet doxycycline hyclate 100 mg capsule 100 mg PO BID #14 caps 03/28/22 prednisone 20 mg tablet 40 mg PO DAILY #10 tabs 03/28/22 albuterol sulfate 2.5 mg/0.5 mL 2.5 mg (0.5 mL) inhalation Q4H #30 03/31/22 solution for nebulization ea Allergies Allergy/AdvReac Type Severity Reaction Status Date / Time azithromycin AdvReac Mild Nausea Verified 03/31/22 18:58 codeine AdvReac Mild Nausea Verified 03/31/22 18:58 erythromycin base AdvReac Mild Nausea Verified 03/31/22 18:58 ibuprofen AdvReac Mild Nausea Verified 03/31/22 18:58 lisinopril AdvReac Mild cough Verified 03/31/22 18:58 NSAIDS (Non-Steroidal AdvReac Mild Nausea Verified 03/31/22 18:58 Anti-Inflamma General Stated Complaint: RespSymp MONICA: 3 Review of Systems All systems reviewed & are unremarkable except as noted in HPI and below Constitutional Constitutional: Denies chills, Denies fever(s) and Denies weakness Cardiovascular Cardiovascular: Denies chest pain Gastrointestinal Gastrointestinal: Denies abdominal pain, Denies nausea and Denies vomiting Musculoskeletal Musculoskeletal: Denies joint swelling Neurologic Neurologic: Denies weakness PFSH All Active Problems (Updated 03/31/22 @ 21:53 by Juanpablo Shukla MD) COPD exacerbation (Acute) Liver cirrhosis secondary to nonalcoholic steatohepatitis ([facility]) (Acute) Chronic diarrhea (Acute) Epigastric pain (Acute) Hyperplastic colon polyp (Acute) ASCVD (arteriosclerotic cardiovascular disease) (Acute) 10/15 anterolat NSTE GA; stent x 4; 10/15 echo-EF 55%; inf.wall hypokinesis; mild Anxiety (Acute) after GA decreased memory/concentration--[facility] neurology COPD (chronic obstructive pulmonary disease) (Acute) continues to smoke Depressive disorder (Acute) fatigue Diabetic peripheral neuropathy associated with type 2 diabetes mellitus (Acute 03/03/16) Essential hypertension (Acute 05/03/13) Urinary, incontinence, stress female (Acute 09/13/13) Heart murmur (Acute 09/13/13) 10/21 echo LVEF 70% with LVH, aoritc valve thickened but opens well (no signif aortic stenosis) [facility] Echo 02/05/19 - LVH (mild-mod), EeF= 60-65%, systolic function normal, ascending aorta mildly dilated Hyperlipidemia (Acute 12/18/12) Morbid obesity (Acute) Numbness and tingling in right hand (Acute 03/03/16) Obstructive sleep apnea syndrome (Acute 03/27/10) [facility] sleep lab Pap smear abnormality of cervix with LGSIL (Acute) LGSIL +HPV; BX darcie I Postmenopausal bleeding (Acute 09/21/11) atypical endometrial hyperplasia Sciatica (Acute 07/04/13) left sciatica, MRI [facility] 07/22/13: L3-4 disc extrusion Skin tags, multiple acquired (Acute 02/15/16) Smoker (Acute) Type II diabetes mellitus, uncontrolled (Acute) Asthma (Chronic) Status post arthroscopy of left knee (Acute) History of section (Acute) Family history of malignant neoplasm of breast (Acute 09/11/14) Fever (Acute) She is febrile and has both abdominal and chest symptoms. We will send to the emergency room. Upper respiratory infection (Acute) Hyperglycemia (Acute) Acute bronchospasm (Acute) Seasonal allergies (Acute) History of COPD (Acute) Fatty liver (Acute) Diverticulosis (Acute) Constipation (Acute) Incontinence (Acute) Pedal edema (Acute) Varicose veins of lower extremity (Acute) Bipolar disorder (Chronic) Compliant with therapeutic regimen (Acute) Caren, oral (Acute) Allergic rhinitis (Acute) Medical History Anxiety Atherosclerotic cardiovascular disease COPD (chronic obstructive pulmonary disease) Depression Heart murmur History of renal carcinoma Hx of malignant neoplasm of eye Hyperlipidemia Hypertension Morbid obesity with BMI of 40.0-44.9, adult Plantar fasciitis of left foot Sleep apnea Stress incontinence in female Surgical History Arthroplasty of knee athroscopy not arthroplasty. Cervical Procedure BX DARCIE I section (~1981) H/O esophagogastroduodenoscopy (~03/10/21) S/P colonoscopy (~09/01/21) Stent placement X 4 TO LCX-1995 Family History Mother Personal history of malignant neoplasm UTERINE CA; HYSTERECTOMY AGE 76 Uterine cancer Hysterectomy at 76 Father Heart disease Brother Diabetes Cancer Brother No problems noted. Brother No problems noted. Social History Smoking/Tobacco Use Status: Current every day Tobacco Type: cigarettes Smoking packs per day: 1 Smoking cigarettes per day: 20.0 Smoking risk assessment performed?: Yes Alcohol Intake: former Drug use: Never Substance use type: does not use Household members: significant other Housing: house Communication Needs: None Do you need help understanding health information?: Rarely Pets and animals: Yes Pets and animals: dog(s) Do you think of yourself as: straight/heterosexual Current gender identity: female What is your relationship status?: living with partner How often do you talk on the phone with friends or family?: three or more times per week How often do you get together with friends or relatives?: decline to answer How often do you attend protestant or moravian services?: decline to answer Do you belong to any clubs or organized social groups?: no Panel score (0-1 are the most socially isolated patients): 2 What type of physical activity do you participate in: none Duration: < 15 minutes/day Frequency: daily Katerina/Yarsanism: none Special katerina needs: No Seatbelt use: sometimes Helmet use: Yes Helmet use: always Drive intox or ride w/intox special education bus driver: No Do you feel safe at home: Yes Do you feel safe in your relationship?: Yes Exam Const General: no acute distress Orientation: alert HENHI Head: normal to inspection Ears: external ears normal General nose exam: external nose normal Mouth: moist mucous membranes Eyes General: appearance normal, both eyes and all related structures Neck Neck: normal visual inspection Resp Effort & Inspection: audible wheezes Cardio Rate: regular rate Skin General skin exam: no rashes or lesions noted Neuro General: patient alert and patient oriented x3 Extrem General: normal to inspection Psych Mental Status: mental status grossly normal Course Vital Signs Vital signs: Vital Signs Temperature 36.6 C 03/31/22 18:54 Pulse 87 03/31/22 18:54 Respiratory Rate 20 03/31/22 18:54 Blood Pressure 144/79 H 03/31/22 18:54 Pulse Oximetry 95 03/31/22 18:54 Temperature 36.6 C 03/31/22 18:54 Temperature Source Temporal Artery Scan 03/31/22 18:54 Pulse 87 03/31/22 18:54 Respiratory Rate 20 03/31/22 18:54 Blood Pressure 144/79 H 03/31/22 18:54 Blood Pressure Position Sitting 03/31/22 18:54 Pulse Oximetry 95 03/31/22 18:54 Oxygen Delivery Method Room Air 03/31/22 18:54 Oxygen Flow Rate 0 03/31/22 18:54 Pain Level 0 03/31/22 18:54
[2022-03-31 21:06] LABS: Source Nasal/Nares
[2022-03-31] MEDS: Albuterol/Ipratropium 3 ML UPD VIAL UPD ×2 (21:12)
[2022-03-31 21:40] LABS: COVID-19 PCR Negative (Negative)
[2022-03-31 21:41] VITALS: RESP 18
[2022-03-31] MEDS: Inhaler, Assist Device 1 EACH MC (21:59)
[2022-03-31] MEDS: Albuterol HFA 8 GM 60 PUFF INH IH (21:59)
[2022-03-31 22:00] VITALS: BP 148/76; PULSE 68; RESP 18; O2SAT 97
== END 2022-03-31 22:00 | disposition home or self-care (01) ==
PROVIDERS: Emergency Provider Emergency Medicine; PCP Family Medicine
DX: J44.1 Chronic obstructive pulmonary disease with (acute) exacerbation (principal); I10 Essential (primary) hypertension; F17.210 Nicotine dependence, cigarettes, uncomplicated; Z79.51 Long term (current) use of inhaled steroids; Z20.822 Contact with and (suspected) exposure to COVID-19
CPT/HCPCS: 36416; 82962; 87635; 99284; J7620

== ENCOUNTER 2022-04-03 16:36 | Emergency (ER) | payer MEDICARE, SELFPAY ==
[2022-04-03 16:45] VITALS: BP 163/92; PULSE 77; RESP 24; TEMP 36.7; O2SAT 98
--- NOTE | 2022-04-03 17:00 | DI.RAD_ITS ---
Exam(s) XR CHEST 2V PA LATERAL EXAM: XR CHEST 2V PA LATERAL CLINICAL HISTORY: cough, r/o acute disease TECHNIQUE: 2D digital imaging was performed. COMPARISON: CR,XR XR PORTABLE CHEST AP from 10/03/2021 FINDINGS: Exam is limited by patient body habitus. HEART: Normal size. Aorta: Tortuous. PULMONARY VASCULATURE: Normal. LUNGS: Clear. PLEURAL SPACE: No pleural effusion or pneumothorax. BONE: Degenerative disc changes. IMPRESSION: No acute abnormality. DATA REPOSITORY: RADIATION DOSE DELIVERED:
[2022-04-03 17:55] LABS: COVID-19 PCR Negative (Negative); Influenza A PCR Negative (Negative); Influenza B PCR Negative (Negative); RSV PCR Negative (Negative)
--- NOTE | 2022-04-03 18:10 | ED.GENADUL_ITS ---
Discharge Plan Disposition Patient Disposition: HOME Condition: Stable Discharge Details Clinical Impression: Pneumonia Primary Care Provider: Luis E Narayan ED Provider: Cinda Doe Home Meds and New Rx's Prescriptions: New prednisone 10 mg tablet See Rx Instructions .ROUTE .COMPLEX Qty: 16 0RF Rx Instructions: Take 4 tabs daily for 1 day then 3 tabs daily for 2 days then 2 tabs daily for 2 days then 1 tab daily for 2 days albuterol sulfate 2.5 mg /3 mL (0.083 %) solution for nebulization 2.5 mg IH Q4H PRN (Reason: shortness of breath or wheezing) Qty: 75 0RF (DME) nebulizers [Aeroneb Go Nebulizer] Misc See Rx Instructions .Route Qty: 1 0RF Rx Instructions: As directed Continued budesonide-formoterol [Symbicort] 80-4.5 mcg/actuation HFA aerosol inhaler 2 puff Inhalation BID Qty: 3 11RF (DME) Aerochamber MV spacer See Dose Instructions .Route .MEDSUPPLY Qty: 1 0RF Dose Instruction: As directed Rx Instructions: As directed fluticasone propionate [Flonase Allergy Relief] 50 mcg/actuation spray,suspension 1 spray KUMAR BID PRN (Reason: nasal congestion) Qty: 9.9 3RF Rx Instructions: administer into each nostril loratadine [Claritin] 10 mg tablet 10 mg PO DAILY lorazepam 1 mg tablet 0.5 - 1 mg PO BID PRN (Reason: anxiety) Qty: 30 0RF Rx Instructions: 12/06/20 PT USES 1 MG AT HS AND 0.5 MG AT NOON doxycycline hyclate 100 mg capsule 100 mg PO BID Qty: 14 0RF Rx Instructions: Avoid sun exposure. Take with meal. Take 1 pill every 12 hours x 7 days nitroglycerin 0.4 mg tablet, sublingual 0.4 mg Sublingual PRN Qty: 25 2RF Rx Instructions: 1 TAB SL PRN melatonin 10 mg capsule 10 mg PO HS PRN Adult 50 Plus Probiotic 4 billion cell capsule 4,000 mmu cells PO DAILY Qty: 30 0RF Rx Instructions: administer with a meal pantoprazole [Protonix] 40 mg tablet,delayed release (DR/EC) 40 mg PO DAILY Qty: 30 12RF acetaminophen [Tylenol] 325 MG tablet 650 mg PO Q4H PRN CPAP (DME) lancets [OneTouch Delica Lancets] 1 EACH misc 1 ea Intradermal BID Qty: 200 Rx Instructions: DX: 250.00 (DME) OneTouch Ultra Test 1 EACH strip 1 strip Miscellaneous DAILY Qty: 100 Rx Instructions: DX: 250.00 oral meds amlodipine 5 mg tablet 5 mg PO DAILY Qty: 90 4RF Rx Instructions: 1 TAB DAILY clopidogrel [Plavix] 75 mg tablet 75 mg PO DAILY Qty: 90 4RF Metoprolol Succinate 25 MG TAB.ER.24H 25 mg PO DAILY Qty: 90 4RF Rx Instructions: 1 TAB DAILY simvastatin 10 mg tablet 10 mg PO DAILY Qty: 90 4RF Rx Instructions: 1 TAB DAILY losartan [Cozaar] 100 mg tablet 100 mg PO DAILY Qty: 90 4RF Rx Instructions: 1 TAB DAILY albuterol sulfate [Ventolin HFA] 90 mcg/actuation HFA aerosol inhaler 2 puff IH Q4H PRN (Reason: shortness of breath or wheezing) Qty: 8.5 11RF aspirin 81 mg Tablet,Delayed Release (Dr/Ec) 81 mg PO DAILY lamotrigine 100 mg tablet 100 mg PO QAM Label Comments: TAKE ONE TABLET BY MOUTH TWICE A DAY buspirone 15 mg tablet 15 mg PO BID Label Comments: TAKE ONE TABLET BY MOUTH TWICE A DAY trazodone 50 mg tablet 100 mg PO HS PRN Rx Instructions: 1-tab at HS PRN simethicone 125 mg tablet,chewable 125 mg PO TID PRN (Reason: abdominal distention) Qty: 30 0RF albuterol sulfate 2.5 mg/0.5 mL solution for nebulization 2.5 mg inhalation Q4H Qty: 30 0RF metformin 500 mg tablet 1,000 mg PO BID (DME) blood-glucose meter [FreeStyle Lite Meter] Kit See Rx Instructions .ROUTE .MEDSUPPLY Qty: 1 0RF Rx Instructions: As directed (DME) FreeStyle Lite Strips Strip See Rx Instructions .ROUTE .MEDSUPPLY Qty: 10 0RF Rx Instructions: As directed Discharge Instructions Instructions: How to Stop Smoking (ED), Pneumonia (ED) Additional Instructions: Your covid and influenza tests today were negative. Your chest xray shows a possible developing pneumonia in your right lung. Prescription for steroids, antibiotics and albuterol solution have been sent electronically to your pharmacy. A prescription for a nebulizer machine was also sent electronically. You can call Claudette shaw or your primary care doctor for further instruction regarding obtaining a nebulizer machine. Our care management service will also follow-up with you regarding instructions on how to obtain a nebulizer machine. Follow-up with your primary care doctor in 1 week. Return to the emergency department with any worsening or new concerning symptoms. Discharge Data Discharge Date/Time-TO BE ENTERED AT DEPARTURE: 04/03/22 19:48 Discharge Physician: Cinda Doe Medical Decision Making 61-year-old female with a history of COPD, diabetes, hypertension, hyperlipidemia, obesity recently treated with antibiotics, steroids and inhaler for what was suspected to be pneumonia and a COPD exacerbation presents for persistent cough and shortness of breath. Patient states she has a few doses of her antibiotics left and has finished her steroids. Patient is still an active smoker. She has wheezing throughout. Oxygen saturation 98% on room air on arrival. Fluvid obtained on arrival and negative. Chest xray notes a possible very early right lower lobe pneumonia. History and presentation does not appear consistent with ACS or PE. We will give a DuoNeb, start another course of steroids and start Levaquin. Attempted to obtain a nebulizer machine to send for home but there are none available. Patient states her grandson has nebulizer machine but he is immunocompromised and would like to limit contact. Pt feels better and feels comfortable going home. Pt placed on care management list to help assist pt with obtaining a nebulizer machine. Prescriptions for steroids, antibiotics, nebulizer machine and albuterol solution sent electronically to her pharmacy. Advised to follow up with her primary care doctor for re-evaluation within the next week. Usual and customary return precautions given prior to discharge. Medical Records Medical records reviewed: Yes I reviewed the patient's medical records. Imaging Data Radiologic Study: Radiologist's impression: XR Chest Exam date and time: 04/03/2022 18:01 Age: 61 years old Clinical indication: Other: Cough, R/O acute disease TECHNIQUE: Imaging protocol: Radiologic exam of the chest. Views: 2 views. COMPARISON: XR PORTABLE CHEST AP 10/03/2021 18:09 FINDINGS: Lungs: A very subtle interstitial opacity is suspected in the right lung base. Pleural spaces: No pleural effusion. No pneumothorax. Heart/Mediastinum: No significant cardiomegaly. Vasculature: Tortuous aorta. Bones/joints: No acute fracture.? IMPRESSION: Potential very early pneumonia in the right lower lobe with follow-up recommended. Lab Data Lab results reviewed: Yes I reviewed the patient's lab results. Labs: Laboratory Tests Range/Units 04/03/22 17:05 COVID-19 Source Not Applicable SARS-CoV-2 (PCR) (Negative) Negative Influenza Type A (PCR) (Negative) Negative Influenza Type B (PCR) (Negative) Negative RSV (PCR) (Negative) Negative HPI General Mode of arrival: ambulatory . Date/Time Provider Initiated Documentation: 04/03/22 16:43 . Limitations to Documentation: no limitations . Information obtained by: patient . HPI Narrative: Patient is a 51-year-old female with a history of obesity, diabetes, hypertension, hyperlipidemia, COPD, TITO recently diagnosed with community- acquired pneumonia and treated with Augmentin, Doxycycline, prednisone, and inhaler who presents for persistent respiratory symptoms. Patient was seen here in the ED a few days ago for wheezing and given DuoNeb with improvement and was discharged home. Patient states she is still smoking three quarters of a pack of cigarettes daily. She states she feels that her cough, wheezing and sinus congestion is not improving. She denies any known fever. Patient states she was unaware that a prescription for albuterol solution was sent to her pharmacy. Patient states she does not have a nebulizer machine at home. She denies any chest pain Related Data Home Medications Medication Instructions Recorded Confirmed Cpap 10/24/12 01/06/22 acetaminophen 325 mg tablet 650 mg PO Q4H PRN 10/24/12 04/03/22 (Tylenol) lancets 33 gauge (Sportpost.comTouch Delica #200 ea 12/15/12 03/31/22 Lancets) blood sugar diagnostic ([employer] #100 strips 01/24/14 03/31/22 Ultra Test strips) budesonide-formoterol HFA 80 2 puff inhalation BID #3 grams 05/01/18 04/03/22 mcg-4.5 mcg/actuation aerosol inhaler (Symbicort) inhalational spacing device #1 ea 05/01/18 03/31/22 (Aerochamber MV spacer) nitroglycerin 0.4 mg sublingual 0.4 mg sublingual PRN #25 tab-caps 05/04/18 04/03/22 tablet amlodipine 5 mg tablet 5 mg PO DAILY #90 tab-caps 07/27/18 04/03/22 clopidogrel 75 mg tablet (Plavix) 75 mg PO DAILY #90 tabs 07/27/18 04/03/22 simvastatin 10 mg tablet 10 mg PO DAILY #90 tab-caps 07/31/18 04/03/22 losartan 100 mg tablet (Cozaar) 100 mg PO DAILY #90 tab-caps 12/27/18 04/03/22 fluticasone propionate 50 1 spray intranasal BID PRN nasal 02/03/19 04/03/22 mcg/actuation nasal congestion #9.9 grams spray,suspension (Flonase Allergy Relief) loratadine 10 mg tablet (Claritin) 10 mg PO DAILY 02/03/19 04/03/22 lorazepam 1 mg tablet 0.5 - 1 mg PO BID PRN anxiety #30 02/19/19 04/03/22 tabs albuterol sulfate 90 mcg/actuation 2 puff inhalation Q4H PRN 08/29/19 04/03/22 aerosol inhaler (Ventolin HFA) shortness of breath or wheezing #8.5 grams metformin 500 mg tablet 1,000 mg PO BID 09/12/19 04/03/22 aspirin 81 mg tablet,delayed 81 mg PO DAILY 08/17/20 04/03/22 release buspirone 15 mg tablet 15 mg PO BID 08/17/20 04/03/22 lamotrigine 100 mg tablet 100 mg PO QAM 08/17/20 04/03/22 trazodone 50 mg tablet 100 mg PO HS PRN 08/17/20 04/03/22 blood sugar diagnostic (FreeStyle #10 ea 12/06/20 03/31/22 Lite Strips) blood-glucose meter (FreeStyle #1 ea 12/06/20 03/31/22 Lite Meter kit) melatonin 10 mg capsule 10 mg PO HS PRN 02/23/21 04/03/22 lactobacillus combination no.9 4 4,000 mmu cells PO DAILY #30 caps 10/13/21 04/03/22 billion cell capsule (Adult 50 Plus Probiotic) simethicone 125 mg chewable tablet 125 mg PO TID PRN abdominal 11/11/21 04/03/22 distention #30 tabs pantoprazole 40 mg tablet,delayed 40 mg PO DAILY #30 tabs 11/25/21 04/03/22 release (Protonix) doxycycline hyclate 100 mg capsule 100 mg PO BID #14 caps 03/28/22 04/03/22 albuterol sulfate 2.5 mg/0.5 mL 2.5 mg (0.5 mL) inhalation Q4H #30 03/31/22 04/03/22 solution for nebulization ea albuterol sulfate 2.5 mg/3 mL 2.5 mg (3 mL) inhalation Q4H PRN 04/03/22 (0.083 %) solution for nebulization shortness of breath or wheezing #75 mL nebulizers ([employer] Go Nebulizer) #1 ea 04/03/22 prednisone 10 mg tablet See Rx Instructions .Route 04/03/22 .COMPLEX #16 tabs Previous Rx's Medication Instructions Recorded budesonide-formoterol HFA 80 2 puff inhalation BID #3 grams 05/01/18 mcg-4.5 mcg/actuation aerosol inhaler (Symbicort) inhalational spacing device #1 ea 05/01/18 (Aerochamber MV spacer) nitroglycerin 0.4 mg sublingual 0.4 mg sublingual PRN #25 tab-caps 05/04/18 tablet amlodipine 5 mg tablet 5 mg PO DAILY #90 tab-caps 07/27/18 clopidogrel 75 mg tablet (Plavix) 75 mg PO DAILY #90 tabs 07/27/18 simvastatin 10 mg tablet 10 mg PO DAILY #90 tab-caps 07/31/18 losartan 100 mg tablet (Cozaar) 100 mg PO DAILY #90 tab-caps 12/27/18 fluticasone propionate 50 1 spray intranasal BID PRN nasal 02/03/19 mcg/actuation nasal congestion #9.9 grams spray,suspension (Flonase Allergy Relief) lorazepam 1 mg tablet 0.5 - 1 mg PO BID PRN anxiety #30 02/19/19 tabs albuterol sulfate 90 mcg/actuation 2 puff inhalation Q4H PRN 08/29/19 aerosol inhaler (Ventolin HFA) shortness of breath or wheezing #8.5 grams blood sugar diagnostic (FreeStyle #10 ea 12/06/20 Lite Strips) blood-glucose meter (FreeStyle #1 ea 12/06/20 Lite Meter kit) lactobacillus combination no.9 4 4,000 mmu cells PO DAILY #30 caps 10/13/21 billion cell capsule (Adult 50 Plus Probiotic) simethicone 125 mg chewable tablet 125 mg PO TID PRN abdominal 11/11/21 distention #30 tabs pantoprazole 40 mg tablet,delayed 40 mg PO DAILY #30 tabs 11/25/21 release (Protonix) doxycycline hyclate 100 mg capsule 100 mg PO BID #14 caps 03/28/22 albuterol sulfate 2.5 mg/0.5 mL 2.5 mg (0.5 mL) inhalation Q4H #30 03/31/22 solution for nebulization ea albuterol sulfate 2.5 mg/3 mL 2.5 mg (3 mL) inhalation Q4H PRN 04/03/22 (0.083 %) solution for nebulization shortness of breath or wheezing #75 mL nebulizers (AeroneAdbrain Go Nebulizer) #1 ea 04/03/22 prednisone 10 mg tablet See Rx Instructions .Route 04/03/22 .COMPLEX #16 tabs Allergies Allergy/AdvReac Type Severity Reaction Status Date / Time azithromycin AdvReac Mild Nausea Verified 04/03/22 16:52 codeine AdvReac Mild Nausea Verified 04/03/22 16:52 erythromycin base AdvReac Mild Nausea Verified 04/03/22 16:52 ibuprofen AdvReac Mild Nausea Verified 04/03/22 16:52 lisinopril AdvReac Mild cough Verified 04/03/22 16:52 NSAIDS (Non-Steroidal AdvReac Mild Nausea Verified 04/03/22 16:52 Anti-Inflamma General Stated Complaint: RespSymp MONICA: 3 Review of Systems All systems reviewed & are unremarkable except as noted in HPI and below Constitutional Constitutional: Reports as per HPI, Denies chills and Denies fever(s) Eyes Eyes: Denies blurry vision ENT Ears, Nose, Mouth, and Throat: Denies dizziness, Reports nasal congestion, Denies sore throat and Denies throat swelling Cardiovascular Cardiovascular: Denies chest pain and Reports dyspnea Respiratory Respiratory: Reports cough and Reports dyspnea Gastrointestinal Gastrointestinal: Denies abdominal pain, Denies diarrhea and Denies vomiting Genitourinary Genitourinary: Denies hematuria and Denies dysuria Musculoskeletal Musculoskeletal: Denies back pain and Denies numbness Integumentary/Breasts Skin/Breast: Denies lesions and Denies rash Neurologic Neurologic: Denies dizziness, Denies localized weakness and Denies numbness Allergic/Immunologic Allergic/Immunologic: Denies throat swelling PFSH All Active Problems (Updated 04/03/22 @ 19:23 by Cinda Doe DO) COPD exacerbation (Acute) Pneumonia (Acute) Liver cirrhosis secondary to nonalcoholic steatohepatitis ([place]) (Acute) Chronic diarrhea (Acute) Epigastric pain (Acute) Hyperplastic colon polyp (Acute) ASCVD (arteriosclerotic cardiovascular disease) (Acute) 10/15 anterolat NSTE ID; stent x 4; 10/15 echo-EF 55%; inf.wall hypokinesis; mild Anxiety (Acute) after ID decreased memory/concentration--[facility] neurology COPD (chronic obstructive pulmonary disease) (Acute) continues to smoke Depressive disorder (Acute) fatigue Diabetic peripheral neuropathy associated with type 2 diabetes mellitus (Acute 03/03/16) Essential hypertension (Acute 05/03/13) Urinary, incontinence, stress female (Acute 09/13/13) Heart murmur (Acute 09/13/13) 10/21 echo LVEF 70% with LVH, aoritc valve thickened but opens well (no signif aortic stenosis) [facility] Echo 02/05/19 - LVH (mild-mod), EeF= 60-65%, systolic function normal, ascending aorta mildly dilated Hyperlipidemia (Acute 12/18/12) Morbid obesity (Acute) Numbness and tingling in right hand (Acute 03/03/16) Obstructive sleep apnea syndrome (Acute 03/27/10) [facility] sleep lab Pap smear abnormality of cervix with LGSIL (Acute) LGSIL +HPV; BX darcie I Postmenopausal bleeding (Acute 09/21/11) atypical endometrial hyperplasia Sciatica (Acute 07/04/13) left sciatica, MRI [facility] 07/22/13: L3-4 disc extrusion Skin tags, multiple acquired (Acute 02/15/16) Smoker (Acute) Type II diabetes mellitus, uncontrolled (Acute) Asthma (Chronic) Status post arthroscopy of left knee (Acute) History of section (Acute) Family history of malignant neoplasm of breast (Acute 09/11/14) Fever (Acute) She is febrile and has both abdominal and chest symptoms. We will send to the emergency room. Upper respiratory infection (Acute) Hyperglycemia (Acute) Acute bronchospasm (Acute) Seasonal allergies (Acute) History of COPD (Acute) Fatty liver (Acute) Diverticulosis (Acute) Constipation (Acute) Incontinence (Acute) Pedal edema (Acute) Varicose veins of lower extremity (Acute) Bipolar disorder (Chronic) Compliant with therapeutic regimen (Acute) Caren, oral (Acute) Allergic rhinitis (Acute) Medical History Anxiety Atherosclerotic cardiovascular disease COPD (chronic obstructive pulmonary disease) Depression Heart murmur History of renal carcinoma Hx of malignant neoplasm of eye Hyperlipidemia Hypertension Morbid obesity with BMI of 40.0-44.9, adult Plantar fasciitis of left foot Sleep apnea Stress incontinence in female Surgical History Arthroplasty of knee athroscopy not arthroplasty. Cervical Procedure BX DARCIE I section (~1981) H/O esophagogastroduodenoscopy (~03/10/21) S/P colonoscopy (~03/10/21) Stent placement X 4 TO LCX-1995 Family History Mother Personal history of malignant neoplasm UTERINE CA; HYSTERECTOMY AGE 76 Uterine cancer Hysterectomy at 76 Father Heart disease Brother Diabetes Cancer Brother No problems noted. Brother No problems noted. Social History Smoking/Tobacco Use Status: Current every day Tobacco Type: cigarettes Smoking packs per day: 1 Smoking cigarettes per day: 20.0 Smoking risk assessment performed?: Yes Alcohol Intake: former Drug use: Never Substance use type: does not use Household members: significant other Housing: house Communication Needs: None Do you need help understanding health information?: Rarely Pets and animals: Yes Pets and animals: dog(s) Do you think of yourself as: straight/heterosexual Current gender identity: female What is your relationship status?: living with partner How often do you talk on the phone with friends or family?: three or more times per week How often do you get together with friends or relatives?: decline to answer How often do you attend jehovah's witness or synagogue services?: decline to answer Do you belong to any clubs or organized social groups?: no Panel score (0-1 are the most socially isolated patients): 2 What type of physical activity do you participate in: none Duration: < 15 minutes/day Frequency: daily Katerina/Confucianism: none Special katerina needs: No Seatbelt use: sometimes Helmet use: Yes Helmet use: always Drive intox or ride w/intox escort car driver: No Do you feel safe at home: Yes Do you feel safe in your relationship?: Yes Exam Const General: cooperative and no acute distress Orientation: alert, awake and oriented x3 HENMT Head: normal to inspection Ears: hearing grossly normal bilaterally, external ears normal and TM's normal bilaterally General nose exam: external nose normal Face and sinus: normal facial exam Mouth: oral mucosae normal Eyes General: appearance normal, both eyes and all related structures Neck Neck: normal visual inspection Resp Effort & Inspection: normal respiratory effort and able to speak in complete sentences Auscultation: wheezes expiratory wheezes and inspiratory wheezes Cardio Rate: regular rate Rhythm: regular rhythm GI Inspection: obesity Skin General skin exam: no rashes or lesions noted Neuro General: patient alert, patient awake and patient oriented x3 Motor: muscle tone normal throughout Extrem General: normal to inspection, full ROM and no edema Psych Appearance: grossly normal Affect: normal affect Course Vital Signs Vital signs: Vital Signs Temperature 98.1 F 04/03/22 16:45 Pulse 77 04/03/22 16:45 Respiratory Rate 24 04/03/22 16:45 Blood Pressure 163/92 H 04/03/22 16:45 Pulse Oximetry 98 04/03/22 16:45 Temperature 98.1 F 04/03/22 16:45 Temperature Source Temporal Artery Scan 04/03/22 16:45 Pulse 77 04/03/22 16:45 Respiratory Rate 24 04/03/22 16:45 Respiratory Effort Incrsd Work of Breathing 04/03/22 16:55 Respiratory Depth Normal 04/03/22 16:55 Blood Pressure 163/92 H 04/03/22 16:45 Blood Pressure Position Sitting 04/03/22 16:45 Pulse Oximetry 98 04/03/22 16:45 Oxygen Delivery Method Room Air 04/03/22 16:45 Oxygen Flow Rate 0 04/03/22 16:45 Pain Level 0 04/03/22 16:45 Lab/Test Results Lab/Test Results: Laboratory Tests Range/Units 04/03/22 17:05 COVID-19 Source Not Applicable SARS-CoV-2 (PCR) (Negative) Negative Influenza Type A (PCR) (Negative) Negative Influenza Type B (PCR) (Negative) Negative RSV (PCR) (Negative) Negative
--- NOTE | 2022-04-03 18:15 | DI.VRAD_ITS ---
PROCEDURE INFORMATION: Exam: XR Chest Exam date and time: 04/03/2022 18:01 Age: 61 years old Clinical indication: Other: Cough, R/O acute disease TECHNIQUE: Imaging protocol: Radiologic exam of the chest. Views: 2 views. COMPARISON: XR PORTABLE CHEST AP 10/03/2021 18:09 FINDINGS: Lungs: A very subtle interstitial opacity is suspected in the right lung base. Pleural spaces: No pleural effusion. No pneumothorax. Heart/Mediastinum: No significant cardiomegaly. Vasculature: Tortuous aorta. Bones/joints: No acute fracture. IMPRESSION: Potential very early pneumonia in the right lower lobe with follow-up recommended. Dictated and Authenticated by: Doris Posadas MD. Ordering:GUS Loo MD
[2022-04-03] MEDS: predniSONE 20 MG TAB 60 MG PO (18:51)
[2022-04-03 18:52] VITALS: RESP 4; RESP 7
[2022-04-03] MEDS: Albuterol/Ipratropium 3 ML UPD VIAL UPD (18:52)
[2022-04-03] MEDS: levoFLOXacin 500 MG, levoFLOXacin 250 MG 750 MG PO (19:21)
[2022-04-03 19:26] VITALS: BP 163/84; PULSE 64; RESP 20; TEMP 36.6; O2SAT 95
--- NOTE | 2022-04-03 19:29 | NUR.NOTE ---
Referral to Care Management to help patient fill a prescription for nebulizer. Unsure if it can be picked up at a pharmacy or [facility]. Please call patient at [phone] Note:
== END 2022-04-03 19:48 | disposition home or self-care (01) ==
PROVIDERS: Emergency Provider Physician Assistant; PCP Family Medicine
DX: J18.9 Pneumonia, unspecified organism (principal); I10 Essential (primary) hypertension; E11.9 Type 2 diabetes mellitus without complications; J44.9 Chronic obstructive pulmonary disease, unspecified; F17.210 Nicotine dependence, cigarettes, uncomplicated; Z79.51 Long term (current) use of inhaled steroids; Z79.84 Long term (current) use of oral hypoglycemic drugs; Z20.822 Contact with and (suspected) exposure to COVID-19; Z95.5 Presence of coronary angioplasty implant and graft
CPT/HCPCS: 87637; 99284; 71046; J7512; J7620

== ENCOUNTER 2022-04-13 19:14 | Emergency (ER) | payer MEDICARE, MEDICAID, SELFPAY ==
[2022-04-13] VITALS (7 sets, daily range): BP systolic 126–162; BP diastolic 72–96; PULSE 67–87; RESP 16–18; TEMP 36.7; O2SAT 96–98
[2022-04-13 19:43] LABS: Bilirubin Negative (Negative); Blood Negative (Negative); Clarity Clear (Clear); Glucose 100 mg/dL (Negative); Ketones Negative (Negative); Leukocyte Esterase Negative (Negative); Nitrite Negative (Negative); Specific Gravity >= 1.030 (1.005-1.025); Urobilinogen 0.2 EU/dL (Up TO 0.2); pH 5.5 (5-8)
--- NOTE | 2022-04-13 19:45 | DI.CT_ITS ---
Exam(s) CT ABDOMEN PELVIS W EXAM: CT ABDOMEN PELVIS W INDICATION: LLQ pain. COMPARISON: CT CT ABDOMEN PELVIS W from 02/11/[address] ABDOMEN PELVIS W from 11/11/2021 TECHNIQUE: FINDINGS: CT examination of the abdomen and pelvis was performed with intravenous infusion of 100 cc of Omnipaq ue 350. The anterior-most portion of the abdominal cavity is excluded from the scanning field. Images obtained through the lung bases are unremarkable. The liver shows moderate patchy hypodensity consistent hepatic steatosis, no focal lesion identified. . Gallbladder and bile ducts are CT normal. Pancreas appears normal. Spleen is unremarkable in appearance. Left adrenal nodule again noted, 14 millimeter transverse diameter, unchanged from prior study of Feb us2020. The kidneys are unremarkable with no evidence of hydronephrosis, nephrolithiasis, or renal mass. Shannon or partial left nephrectomy noted, no change in appearance from February 2021. Urinary bladder unremar kable. Abdominal aorta is of normal diameter and no major vascular abnormality is seen. Small fat containing right inguinal hernia noted. No abdominal or pelvic adenopathy. IT APPLICATION ADMINISTRATOR structures appear intact. Appendix is normal. No evidence of diverticulitis or bowel obstruction. IMPRESSION: No evidence of acute intra-abdominal process. RADIATION DOSE DELIVERED: 1,106.36mGy.cm Total DLP 1,106.36mGy.cm Total DLP !Error CTDIvol RADIATION OPTIMIZATION: All CT scans at this facility use at least one of these dose optimization te chniques: automated exposure control; mA and/or kV adjustment per patient size (includes targeted exa ms where dose is matched to clinical indication); or iterative reconstruction.
[2022-04-13 20:00] LABS: Abs Immature Grans 0.05 10^3/uL (0.0-0.06); Absolute Eosinophil Count 0.14 10^3/uL (0.0-0.7); Absolute Lymphocyte Count 2.63 10^3/uL (1.2-3.4); Absolute Monocyte Count 0.83 10^3/uL (0.1-0.8); Absolute Neutrophil Count 7.58 10^3/uL (1.2-6.7); Basophils % 0.4; Eosinophils % 1.2; HCT 39.9 % (36.0-46.0); HGB 13.6 g/dL (11.2-15.7); Immature Grans % 0.4; Lymphocytes % 23.3; MCH 28.7 pg (27.0-33.0); MCHC 34.1 % (32.0-36.0); MCV 84 fL (80-95); MPV 9.2 fL (8.0-11.0); Monocytes % 7.4; Neutrophils % 67.3; Platelet Count 357 10^3/uL (130-400); RBC 4.74 10^6/uL (3.93-5.22); RDW-SD 43.2 fL; WBC 11.27 10^3/uL (4.4-10.8)
[2022-04-13] MEDS: ACETAMINOPHEN 1,000 MG/100 ML BTL 400 MG IVPB (20:05)
[2022-04-13] MEDS: Normal Saline 1,000 ML 1000 ML IV (20:05)
[2022-04-13 20:06] LABS: Absolute Basophil Count 0.05 10^3/uL (0.0-0.2)
[2022-04-13 20:22] LABS: ALT 35 U/L (14-59); AST 14 U/L (15-37); Albumin 3.7 g/dL (3.4-5.0); Alkaline Phosphatase 107 U/L (46-116); BUN 13 mg/dL (7-18); Bilirubin, Total 0.7 mg/dL (0.2-1.0); CREATININE 0.9 mg/dL (0.55-1.02); Calcium 9.2 mg/dL (8.5-10.1); Chloride 100 mmol/L (98-107); Estimated GFR 72.28 (mL/min/1.73m2); Glucose 233 mg/dL (74-106); Lipase 202 U/L (73-393); Magnesium 1.7 mg/dL (1.8-2.4); Potassium 3.9 mmol/L (3.5-5.1); Sodium 137 mmol/L (136-145); Total Protein 7.4 g/dL (6.4-8.2)
[2022-04-13] MEDS: Omnipaque 350 MG/ML 100 ML BTL IJ (20:44)
[2022-04-13] MEDS: Magnesium Oxide 400 MG TAB PO (21:15)
--- NOTE | 2022-04-13 21:24 | DI.VRAD_ITS ---
PROCEDURE INFORMATION: Exam: CT Abdomen And Pelvis With Contrast Exam date and time: 04/13/2022 8:44 PM Age: 61 years old Clinical indication: Other: Llq pain TECHNIQUE: Imaging protocol: Computed tomography of the abdomen and pelvis with contrast. Contrast material: 350; Contrast volume: 100 ml; Contrast route: INTRAVENOUS (IV); COMPARISON: CT ABDOMEN PELVIS W 11/11/2021 8:53 AM FINDINGS: Liver: Hepatomegaly and diffuse fatty infiltrationNo mass. Gallbladder and bile ducts: Normal. No calcified stones. No ductal dilation. Pancreas: Normal. No ductal dilation. Spleen: Normal. No splenomegaly. Adrenal glands: Left adrenal nodule measuring 1.8 cm Kidneys and ureters: Partial left nephrectomy No hydronephrosis. Stomach and bowel: Mild colonic diverticulosis. No obstruction. No mucosal thickening. Appendix: No evidence of appendicitis. Intraperitoneal space: Unremarkable. No free air. No significant fluid collection. Vasculature: Unremarkable. No abdominal aortic aneurysm. Lymph nodes: Prominent periaortic lymph nodes. Urinary bladder: Unremarkable as visualized. Reproductive: Unremarkable as visualized. Bones/joints: Degenerative changes in the spine No acute fracture. Soft tissues: A small fat-containing right inguinal hernia is noted. IMPRESSION: Mild colonic diverticulosis without diverticulitis Dictated and Authenticated by: Earl Guajardo MD. Ordering:MISHEL Francis MD
--- NOTE | 2022-04-13 21:30 | W.ED.GENAD ---
Discharge Plan Disposition Patient Disposition: HOME Condition: Stable Discharge Details Clinical Impression: Diverticulitis Primary Care Provider: Luis E Narayan ED Provider: Tito Cabrera Home Meds and New Rx's Prescriptions: New amoxicillin-pot clavulanate 875-125 mg tablet 1 tab PO BID 7 Days Qty: 14 0RF No Action budesonide-formoterol [Symbicort] 80-4.5 mcg/actuation HFA aerosol inhaler 2 puff Inhalation BID Qty: 3 11RF (DME) Aerochamber MV spacer See Dose Instructions .Route .MEDSUPPLY Qty: 1 0RF Dose Instruction: As directed Rx Instructions: As directed fluticasone propionate [Flonase Allergy Relief] 50 mcg/actuation spray,suspension 1 spray KUMAR BID PRN (Reason: nasal congestion) Qty: 9.9 3RF Rx Instructions: administer into each nostril loratadine [Claritin] 10 mg tablet 10 mg PO DAILY lorazepam 1 mg tablet 0.5 - 1 mg PO BID PRN (Reason: anxiety) Qty: 30 0RF Rx Instructions: 12/06/20 PT USES 1 MG AT HS AND 0.5 MG AT NOON doxycycline hyclate 100 mg capsule 100 mg PO BID Qty: 14 0RF Rx Instructions: Avoid sun exposure. Take with meal. Take 1 pill every 12 hours x 7 days nitroglycerin 0.4 mg tablet, sublingual 0.4 mg Sublingual PRN Qty: 25 2RF Rx Instructions: 1 TAB SL PRN melatonin 10 mg capsule 10 mg PO HS PRN Adult 50 Plus Probiotic 4 billion cell capsule 4,000 mmu cells PO DAILY Qty: 30 0RF Rx Instructions: administer with a meal pantoprazole [Protonix] 40 mg tablet,delayed release (DR/EC) 40 mg PO DAILY Qty: 30 12RF acetaminophen [Tylenol] 325 MG tablet 650 mg PO Q4H PRN CPAP (DME) lancets [OneTouch Delica Lancets] 1 EACH misc 1 ea Intradermal BID Qty: 200 Rx Instructions: DX: 250.00 (DME) OneTouch Ultra Test 1 EACH strip 1 strip Miscellaneous DAILY Qty: 100 Rx Instructions: DX: 250.00 oral meds amlodipine 5 mg tablet 5 mg PO DAILY Qty: 90 4RF Rx Instructions: 1 TAB DAILY clopidogrel [Plavix] 75 mg tablet 75 mg PO DAILY Qty: 90 4RF Metoprolol Succinate 25 MG TAB.ER.24H 25 mg PO DAILY Qty: 90 4RF Rx Instructions: 1 TAB DAILY simvastatin 10 mg tablet 10 mg PO DAILY Qty: 90 4RF Rx Instructions: 1 TAB DAILY losartan [Cozaar] 100 mg tablet 100 mg PO DAILY Qty: 90 4RF Rx Instructions: 1 TAB DAILY albuterol sulfate [Ventolin HFA] 90 mcg/actuation HFA aerosol inhaler 2 puff IH Q4H PRN (Reason: shortness of breath or wheezing) Qty: 8.5 11RF aspirin 81 mg Tablet,Delayed Release (Dr/Ec) 81 mg PO DAILY lamotrigine 100 mg tablet 100 mg PO QAM Label Comments: TAKE ONE TABLET BY MOUTH TWICE A DAY buspirone 15 mg tablet 15 mg PO BID Label Comments: TAKE ONE TABLET BY MOUTH TWICE A DAY trazodone 50 mg tablet 100 mg PO HS PRN Rx Instructions: 1-tab at HS PRN simethicone 125 mg tablet,chewable 125 mg PO TID PRN (Reason: abdominal distention) Qty: 30 0RF albuterol sulfate 2.5 mg/0.5 mL solution for nebulization 2.5 mg inhalation Q4H Qty: 30 0RF prednisone 10 mg tablet See Rx Instructions .ROUTE .COMPLEX Qty: 16 0RF Rx Instructions: Take 4 tabs daily for 1 day then 3 tabs daily for 2 days then 2 tabs daily for 2 days then 1 tab daily for 2 days albuterol sulfate 2.5 mg /3 mL (0.083 %) solution for nebulization 2.5 mg IH Q4H PRN (Reason: shortness of breath or wheezing) Qty: 75 0RF (DME) nebulizers [Aeroneb Go Nebulizer] Misc See Rx Instructions .Route Qty: 1 0RF Rx Instructions: As directed metformin 500 mg tablet 1,000 mg PO BID (DME) blood-glucose meter [FreeStyle Lite Meter] Kit See Rx Instructions .ROUTE .MEDSUPPLY Qty: 1 0RF Rx Instructions: As directed (DME) FreeStyle Lite Strips Strip See Rx Instructions .ROUTE .MEDSUPPLY Qty: 10 0RF Rx Instructions: As directed Discharge Instructions Instructions: Diverticulitis (ED), Diverticulitis Diet (ED) Additional Instructions: At this time you may have early Diverticulitis. You may try a clear liquid diet for the next 24-48 hour to see if this helps your symptoms. If you worsen please start antibiotic right away and follow up with your PCP in 3-5 days for reassessment. If you have severe worsening please return to ED for a recheck. Referrals: Luis E Narayan [Primary Care Provider] - Discharge Data Discharge Date/Time-TO BE ENTERED AT DEPARTURE: 04/13/22 22:32 Medical Decision Making Patient presenting to the emergency department for chief complaint of left lower abdominal pain. She states that this is been intermittent and going on for a while but has had some loose stools with bouts of painful abdominal discomfort. She has been recently treated for pneumonia with antibiotics and has developed some thrush. Patient denies any fever but does state subjective chills, denies nausea vomiting, denies any blood in her stool. Physical exam shows tenderness to palpation of the left lower quadrant otherwise normal active bowel sounds and unremarkable exam. We will plan on checking labs and performing CT imaging. Pending results we will give patient acetaminophen IV due to allergies. Review of labs show a mild elevation of white count with elevation of neutrophils and monocytes to suggest possible early infection, CMP is unremarkable except for glucose of 233, mag is 1.7 so we will give oral repletion lipase is within normal limits. Urine is concentrated but otherwise does not appear infected. Reviewed CT imaging and radiologist interpretation that shows diverticulosis without acute diverticulitis. Patient reassessed and still endorses some left lower abdominal pain. Patient is afebrile and otherwise stable. I do feel that this is potentially early diverticulitis but discussed with patient clear liquid diet for to 48 hours to see if symptoms are but if they do not patient encouraged to start antibiotic therapy immediately. Discussed return and follow-up precautions with patient. After discussion of diagnosis and plan of care patient has no further needs, questions, or concerns and states clear understanding to return to the emergency department for any worsening symptoms. This documentation was generated using [employer] system, please disregard any oddities of phrase or misspellings. Imaging Data Radiologic Study: Attestation: I personally reviewed and interpreted this imaging study as follows: Imaging: CT Scan Radiologist's impression: FINDINGS: Liver: Hepatomegaly and diffuse fatty infiltrationNo mass. Gallbladder and bile ducts: Normal. No calcified stones. No ductal dilation. Pancreas: Normal. No ductal dilation. Spleen: Normal. No splenomegaly. Adrenal glands: Left adrenal nodule measuring 1.8 cm Kidneys and ureters: Partial left nephrectomy No hydronephrosis. Stomach and bowel: Mild colonic diverticulosis. No obstruction. No mucosal thickening. Appendix: No evidence of appendicitis. Intraperitoneal space: Unremarkable. No free air. No significant fluid collection. Vasculature: Unremarkable. No abdominal aortic aneurysm. Lymph nodes: Prominent periaortic lymph nodes. Urinary bladder: Unremarkable as visualized. Reproductive: Unremarkable as visualized. Bones/joints: Degenerative changes in the spine No acute fracture. Soft tissues: A small fat-containing right inguinal hernia is noted. IMPRESSION: Mild colonic diverticulosis without diverticulitis Lab Data Lab results reviewed: Yes I reviewed the patient's lab results. HPI General Mode of arrival: ambulatory. Date/Time Provider Initiated Documentation: 04/13/22 19:17. Limitations to Documentation: no limitations. Information obtained by: patient and RN notes reviewed. History of Present Illness 61 year old F presents to the emergency department with the chief complaint of Abdominal pain, described as moderate, with intensity rated at 7. Quality is described as aching, and is localized to the abdomen. Patient reports no radiation. Patient started experiencing this unknown and it has been intermittent. No relieving factors improve symptom(s), No exacerbating factors reported . Patient did receive the following treatments prior to arrival, none Related Data Home Medications Medication Instructions Recorded Confirmed Cpap 10/24/12 01/06/22 acetaminophen 325 mg tablet 650 mg PO Q4H PRN 10/24/12 04/03/22 (Tylenol) lancets 33 gauge (OneTouch Delica #200 ea 12/15/12 03/31/22 Lancets) blood sugar diagnostic ([employer] #100 strips 01/24/14 03/31/22 Ultra Test strips) budesonide-formoterol HFA 80 2 puff inhalation BID #3 grams 05/01/18 04/03/22 mcg-4.5 mcg/actuation aerosol inhaler (Symbicort) inhalational spacing device #1 ea 05/01/18 03/31/22 (Aerochamber MV spacer) nitroglycerin 0.4 mg sublingual 0.4 mg sublingual PRN #25 tab-caps 05/04/18 04/03/22 tablet amlodipine 5 mg tablet 5 mg PO DAILY #90 tab-caps 07/27/18 04/03/22 clopidogrel 75 mg tablet (Plavix) 75 mg PO DAILY #90 tabs 07/27/18 04/03/22 simvastatin 10 mg tablet 10 mg PO DAILY #90 tab-caps 07/31/18 04/03/22 losartan 100 mg tablet (Cozaar) 100 mg PO DAILY #90 tab-caps 12/27/18 04/03/22 fluticasone propionate 50 1 spray intranasal BID PRN nasal 02/03/19 04/03/22 mcg/actuation nasal congestion #9.9 grams spray,suspension (Flonase Allergy Relief) loratadine 10 mg tablet (Claritin) 10 mg PO DAILY 02/03/19 04/03/22 lorazepam 1 mg tablet 0.5 - 1 mg PO BID PRN anxiety #30 02/19/19 04/03/22 tabs albuterol sulfate 90 mcg/actuation 2 puff inhalation Q4H PRN 08/29/19 04/03/22 aerosol inhaler (Ventolin HFA) shortness of breath or wheezing #8.5 grams metformin 500 mg tablet 1,000 mg PO BID 09/12/19 04/03/22 aspirin 81 mg tablet,delayed 81 mg PO DAILY 08/17/20 04/03/22 release buspirone 15 mg tablet 15 mg PO BID 08/17/20 04/03/22 lamotrigine 100 mg tablet 100 mg PO QAM 08/17/20 04/03/22 trazodone 50 mg tablet 100 mg PO HS PRN 08/17/20 04/03/22 blood sugar diagnostic (FreeStyle #10 ea 12/06/20 03/31/22 Lite Strips) blood-glucose meter (FreeStyle #1 ea 12/06/20 03/31/22 Lite Meter kit) melatonin 10 mg capsule 10 mg PO HS PRN 02/23/21 04/03/22 lactobacillus combination no.9 4 4,000 mmu cells PO DAILY #30 caps 10/13/21 04/03/22 billion cell capsule (Adult 50 Plus Probiotic) simethicone 125 mg chewable tablet 125 mg PO TID PRN abdominal 11/11/21 04/03/22 distention #30 tabs pantoprazole 40 mg tablet,delayed 40 mg PO DAILY #30 tabs 11/25/21 04/03/22 release (Protonix) doxycycline hyclate 100 mg capsule 100 mg PO BID #14 caps 03/28/22 04/03/22 albuterol sulfate 2.5 mg/0.5 mL 2.5 mg (0.5 mL) inhalation Q4H #30 03/31/22 04/03/22 solution for nebulization ea albuterol sulfate 2.5 mg/3 mL 2.5 mg (3 mL) inhalation Q4H PRN 04/03/22 (0.083 %) solution for nebulization shortness of breath or wheezing #75 mL nebulizers (Aquaporin Go Nebulizer) #1 ea 04/03/22 prednisone 10 mg tablet See Rx Instructions .Route 04/03/22 .COMPLEX #16 tabs amoxicillin 875 mg-potassium 1 tab PO BID 7 days #14 tabs 04/13/22 clavulanate 125 mg tablet Previous Rx's Medication Instructions Recorded budesonide-formoterol HFA 80 2 puff inhalation BID #3 grams 05/01/18 mcg-4.5 mcg/actuation aerosol inhaler (Symbicort) inhalational spacing device #1 ea 05/01/18 (Aerochamber MV spacer) nitroglycerin 0.4 mg sublingual 0.4 mg sublingual PRN #25 tab-caps 05/04/18 tablet amlodipine 5 mg tablet 5 mg PO DAILY #90 tab-caps 07/27/18 clopidogrel 75 mg tablet (Plavix) 75 mg PO DAILY #90 tabs 07/27/18 simvastatin 10 mg tablet 10 mg PO DAILY #90 tab-caps 07/31/18 losartan 100 mg tablet (Cozaar) 100 mg PO DAILY #90 tab-caps 12/27/18 fluticasone propionate 50 1 spray intranasal BID PRN nasal 02/03/19 mcg/actuation nasal congestion #9.9 grams spray,suspension (Flonase Allergy Relief) lorazepam 1 mg tablet 0.5 - 1 mg PO BID PRN anxiety #30 02/19/19 tabs albuterol sulfate 90 mcg/actuation 2 puff inhalation Q4H PRN 08/29/19 aerosol inhaler (Ventolin HFA) shortness of breath or wheezing #8.5 grams blood sugar diagnostic (FreeStyle #10 ea 12/06/20 Lite Strips) blood-glucose meter (FreeStyle #1 ea 12/06/20 Lite Meter kit) lactobacillus combination no.9 4 4,000 mmu cells PO DAILY #30 caps 10/13/21 billion cell capsule (Adult 50 Plus Probiotic) simethicone 125 mg chewable tablet 125 mg PO TID PRN abdominal 11/11/21 distention #30 tabs pantoprazole 40 mg tablet,delayed 40 mg PO DAILY #30 tabs 11/25/21 release (Protonix) doxycycline hyclate 100 mg capsule 100 mg PO BID #14 caps 03/28/22 albuterol sulfate 2.5 mg/0.5 mL 2.5 mg (0.5 mL) inhalation Q4H #30 03/31/22 solution for nebulization ea albuterol sulfate 2.5 mg/3 mL 2.5 mg (3 mL) inhalation Q4H PRN 04/03/22 (0.083 %) solution for nebulization shortness of breath or wheezing #75 mL nebulizers (AerEffdon Go Nebulizer) #1 ea 04/03/22 prednisone 10 mg tablet See Rx Instructions .Route 04/03/22 .COMPLEX #16 tabs amoxicillin 875 mg-potassium 1 tab PO BID 7 days #14 tabs 04/13/22 clavulanate 125 mg tablet Allergies Allergy/AdvReac Type Severity Reaction Status Date / Time azithromycin AdvReac Mild Nausea Verified 04/13/22 19:30 codeine AdvReac Mild Nausea Verified 04/13/22 19:30 erythromycin base AdvReac Mild Nausea Verified 04/13/22 19:30 ibuprofen AdvReac Mild Nausea Verified 04/13/22 19:30 lisinopril AdvReac Mild cough Verified 04/13/22 19:30 NSAIDS (Non-Steroidal AdvReac Mild Nausea Verified 04/13/22 19:30 Anti-Inflamma General Stated Complaint: Abd Prob MONICA: 3 Review of Systems Constitutional Constitutional: Reports chills, Denies fever(s) and Reports poor appetite Cardiovascular Cardiovascular: Denies chest pain and Denies dyspnea Respiratory Respiratory: Denies cough and Denies dyspnea Gastrointestinal Gastrointestinal: Reports as per HPI, Reports abdominal pain, Denies melena, Denies hematochezia, Denies change in bowel habits, Denies constipation, Denies diarrhea, Reports loose stools, Denies nausea and Denies vomiting Genitourinary Genitourinary: Denies hematuria, Denies urinary incontinence, Denies urinary hesitancy and Denies urinary urgency Integumentary/Breasts Skin/Breast: Denies rash PFSH All Active Problems (Updated 04/13/22 @ 22:19 by Tito Cabrera NP) COPD exacerbation (Acute) Pneumonia (Acute) Diverticulitis (Chronic) Liver cirrhosis secondary to nonalcoholic steatohepatitis ([place]) (Acute) Chronic diarrhea (Acute) Epigastric pain (Acute) Hyperplastic colon polyp (Acute) ASCVD (arteriosclerotic cardiovascular disease) (Acute) 10/15 anterolat NSTE OH; stent x 4; 10/15 echo-EF 55%; inf.wall hypokinesis; mild Anxiety (Acute) after [place] [place] COPD (chronic obstructive pulmonary disease) (Acute) continues to smoke Depressive disorder (Acute) fatigue Diabetic peripheral neuropathy associated with type 2 diabetes mellitus (Acute 03/03/16) Essential hypertension (Acute 05/03/13) Urinary, incontinence, stress female (Acute 09/13/13) Heart murmur (Acute 09/13/13) 10/21 echo LVEF 70% with LVH, aoritc valve thickened but opens well (no signif aortic stenosis) [facility] Echo 02/05/19 - LVH (mild-mod), EeF= 60-65%, systolic function normal, ascending aorta mildly dilated Hyperlipidemia (Acute 12/18/12) Morbid obesity (Acute) Numbness and tingling in right hand (Acute 03/03/16) Obstructive sleep apnea syndrome (Acute 03/27/10) [facility] [place] Pap smear abnormality of cervix with LGSIL (Acute) LGSIL +HPV; BX darcie I Postmenopausal bleeding (Acute 09/21/11) atypical endometrial hyperplasia Sciatica (Acute 07/04/13) left sciatica, [place] [facility] [place] L3-4 disc extrusion Skin tags, multiple acquired (Acute 02/15/16) Smoker (Acute) Type II diabetes mellitus, uncontrolled (Acute) Asthma (Chronic) Status post arthroscopy of left knee (Acute) History of section (Acute) Family history of malignant neoplasm of breast (Acute 09/11/14) Fever (Acute) She is febrile and has both abdominal and chest symptoms. We will send to the emergency room. Upper respiratory infection (Acute) Hyperglycemia (Acute) Acute bronchospasm (Acute) Seasonal allergies (Acute) History of COPD (Acute) Fatty liver (Acute) Diverticulosis (Acute) Constipation (Acute) Incontinence (Acute) Pedal edema (Acute) Varicose veins of lower extremity (Acute) Bipolar disorder (Chronic) Compliant with therapeutic regimen (Acute) Caren, oral (Acute) Allergic rhinitis (Acute) Medical History Anxiety Atherosclerotic cardiovascular disease COPD (chronic obstructive pulmonary disease) Depression Heart murmur History of renal carcinoma Hx of malignant neoplasm of eye Hyperlipidemia Hypertension Morbid obesity with BMI of 40.0-44.9, adult Plantar fasciitis of left foot Sleep apnea Stress incontinence in female Surgical History Arthroplasty of knee athroscopy not arthroplasty. Cervical Procedure BX DARCIE I section (~1981) H/O esophagogastroduodenoscopy (~03/10/21) S/P colonoscopy (~03/10/21) Stent placement X 4 TO LCX-1995 Family History Mother Personal history of malignant neoplasm UTERINE CA; HYSTERECTOMY AGE 76 Uterine cancer Hysterectomy at 76 Father Heart disease Brother Diabetes Cancer Brother No problems noted. Brother No problems noted. Social History Smoking/Tobacco Use Status: Current every day Tobacco Type: cigarettes Smoking packs per day: 1 Smoking cigarettes per day: 20.0 Smoking risk assessment performed?: Yes Alcohol Intake: former Drug use: Never Substance use type: does not use Household members: significant other Housing: house Communication Needs: None Do you need help understanding health information?: Rarely Pets and animals: Yes Pets and animals: dog(s) Do you think of yourself as: straight/heterosexual Current gender identity: female What is your relationship status?: living with partner How often do you talk on the phone with friends or family?: three or more times per week How often do you get together with friends or relatives?: decline to answer How often do you attend gnosticist or jain services?: decline to answer Do you belong to any clubs or organized social groups?: no Panel score (0-1 are the most socially isolated patients): 2 What type of physical activity do you participate in: none Duration: < 15 minutes/day Frequency: daily Katerina/Moravian: none Special katerina needs: No Seatbelt use: sometimes Helmet use: Yes Helmet use: always Drive intox or ride w/intox armored car driver: No Do you feel safe at home: Yes Do you feel safe in your relationship?: Yes Exam Const General: cooperative Orientation: alert, awake and oriented x3 Resp Effort & Inspection: normal respiratory effort and able to speak in complete sentences Auscultation: clear to auscultation bilaterally Cardio Rate: regular rate Rhythm: regular rhythm Heart Sounds: S1 normal and S2 normal GI Inspection: obesity Palpation: soft, not firm, no guarding, no masses, no pulsatile masses, not rigid and tender in the LLQ Auscultation: normal bowel sounds Back/Spine/Pelvis Back: no CVA tenderness Neuro General: patient alert, patient awake, patient oriented x3, gait normal and moves all extremities Course Vital Signs Vital signs: Vital Signs Temperature 36.7 C 04/13/22 19:18 Pulse 87 04/13/22 19:18 Respiratory Rate 18 04/13/22 19:18 Blood Pressure 162/96 H 04/13/22 19:18 Pulse Oximetry 98 04/13/22 19:18 Temperature 36.7 C 04/13/22 19:18 Temperature Source Skin 04/13/22 19:18 Pulse 67 04/13/22 20:16 Respiratory Rate 18 04/13/22 19:18 Respiratory Effort 04/13/22 19:30 Blood Pressure 155/72 H 04/13/22 20:16 Blood Pressure Mean 91 04/13/22 20:16 Blood Pressure Position Sitting 04/13/22 19:18 Pulse Oximetry 98 04/13/22 20:20 Oxygen Delivery Method Room Air 04/13/22 19:18 Oxygen Flow Rate 0 04/13/22 19:18 Pain Level 7 04/13/22 19:18 Comment 04/13/22 19:18 Lab/Test Results Lab/Test Results: Laboratory Tests Range/Units 04/13/22 04/13/22 04/13/22 19:25 19:55 19:55 WBC (4.4-10.8) 10^3/uL 11.27 H RBC (3.93-5.22) 10^6/uL 4.74 Hgb (11.2-15.7) g/dL 13.6 Hct (36.0-46.0) % 39.9 MCV (80-95) fL 84 MCH (27.0-33.0) pg 28.7 MCHC (32.0-36.0) % 34.1 RDW (11.7-14.6) % 14.0 Plt Count (130-400) 10^3/uL 357 MPV (8.0-11.0) fL 9.2 Immature Gran % 0.4 Neutrophils % 67.3 Lymphocytes % 23.3 Monocytes % 7.4 Eosinophils % 1.2 Basophils % 0.4 Nucleated RBC % (0.0-0.3) % 0.0 Absolute Neutrophils (1.2-6.7) 10^3/uL 7.58 H Absolute Lymphocytes (1.2-3.4) 10^3/uL 2.63 Absolute Monocytes (0.1-0.8) 10^3/uL 0.83 H Absolute Eosinophils (0.0-0.7) 10^3/uL 0.14 Absolute Basophils (0.0-0.2) 10^3/uL 0.05 Sodium (136-145) mmol/L 137 Potassium (3.5-5.1) mmol/L 3.9 Chloride (98-107) mmol/L 100 Carbon Dioxide (21.0-32.0) mmol/L 29.0 Anion Gap (3-11) mmol/L 8.0 BUN (7-18) mg/dL 13 Creatinine (0.55-1.02) mg/dL 0.9 Est GFR (CKD-EPI 2020) (mL/min/1.73m2) 72.28 Glucose (74-106) mg/dL 233 H Calcium (8.5-10.1) mg/dL 9.2 Magnesium (1.8-2.4) mg/dL 1.7 L Total Bilirubin (0.2-1.0) mg/dL 0.7 AST (15-37) U/L 14 L ALT (14-59) U/L 35 Alkaline Phosphatase (46-116) U/L 107 Total Protein (6.4-8.2) g/dL 7.4 Albumin (3.4-5.0) g/dL 3.7 Lipase (73-393) U/L 202 Urine Color (Yellow) Yellow Urine Clarity (Clear) Clear Urine pH (5-8) 5.5 Ur Specific [place] (1.005-1.025) >= 1.030 H Urine Protein (Negative) mg/dL Negative Urine Ketones (Negative) mg/dL Negative Urine Blood (Negative) Negative Urine Nitrite (Negative) Negative Urine Bilirubin (Negative) Negative Urine Urobilinogen (Up TO 0.2) EU/dL 0.2 Ur Leukocyte Esterase (Negative) Negative Urine Glucose (Negative) mg/dL 100
== END 2022-04-13 22:32 | disposition home or self-care (01) ==
PROVIDERS: Emergency Provider Nurse Practitioner Family; PCP Family Medicine
DX: K57.92 Diverticulitis of intestine, part unspecified, without perforation or abscess without bleeding (principal); D72.829 Elevated white blood cell count, unspecified; J44.9 Chronic obstructive pulmonary disease, unspecified; I10 Essential (primary) hypertension; F17.210 Nicotine dependence, cigarettes, uncomplicated
CPT/HCPCS: 36415; 80053; 83690; 96361; 96374; 99284; 74177; 81003; 83735; 85025; J0131; J3490

== ENCOUNTER 2022-06-03 15:10 | Emergency (ER) | payer MEDICARE, MEDICAID, SELFPAY ==
[2022-06-03 15:15] VITALS: BP 161/89; PULSE 84; RESP 18; TEMP 36.9; O2SAT 98
--- NOTE | 2022-06-03 16:00 | DI.CT_ITS ---
Exam(s) CT ABDOMEN PELVIS W EXAM: CT ABDOMEN PELVIS W INDICATION: LLQ abdominal pain, increased urin freq. COMPARISON: CT CT ABDOMEN PELVIS W from 04/13/2022 TECHNIQUE: FINDINGS: CT examination of the abdomen and pelvis was performed with intravenous infusion of 100 cc of Omnipaq ue 350. Coronary artery calcification or stent noted. Images obtained through the lung bases are unremarkable. The liver shows decreased attenuation consistent with hepatic steatosis, no focal lesion seen.. Gallbladder and bile ducts are CT normal. Pancreas appears normal. Spleen is unremarkable in appearance. Previously noted 14 millimeter left adrenal nodule again seen, unchanged. Low right adrenal unremark able. Prior partial left nephrectomy noted , no change in appearance from examination April 13. No evid ence of hydronephrosis or nephrolithiasis on either side. No ureterolithiasis. Urinary bladder is n early empty.. Abdominal aorta is of normal diameter and no major vascular abnormality is seen. Fat containing right inguinal hernia noted. No abdominal or pelvic adenopathy. [employer] structures appear unremarkable for age. Appendix is normal. No evidence of diverticulitis or bowel obstruction. IMPRESSION: No evidence of acute intra-abdominal process. RADIATION DOSE DELIVERED: 1,347.92mGy.cm Total DLP 1,347.92mGy.cm Total DLP RADIATION OPTIMIZATION: All CT scans at this facility use at least one of these dose optimization te chniques: automated exposure control; mA and/or kV adjustment per patient size (includes targeted exa ms where dose is matched to clinical indication); or iterative reconstruction.
--- NOTE | 2022-06-03 16:16 | ED.GENADUL_ITS ---
Discharge Plan Disposition Patient Disposition: Home Condition: Stable Discharge Details Clinical Impression: Abdominal pain Primary Care Provider: Luis E Narayan ED Provider: Nathan Gongora Home Meds and New Rx's Prescriptions: Continued budesonide-formoterol [Symbicort] 80-4.5 mcg/actuation HFA aerosol inhaler 2 puff Inhalation BID Qty: 3 11RF (DME) Aerochamber MV spacer See Dose Instructions .Route .MEDSUPPLY Qty: 1 0RF Dose Instruction: As directed Rx Instructions: As directed fluticasone propionate [Flonase Allergy Relief] 50 mcg/actuation spray,suspension 1 spray KUMAR BID PRN (Reason: nasal congestion) Qty: 9.9 3RF Rx Instructions: administer into each nostril loratadine [Claritin] 10 mg tablet 10 mg PO DAILY lorazepam 1 mg tablet 0.5 - 1 mg PO BID PRN (Reason: anxiety) Qty: 30 0RF Rx Instructions: 12/06/20 PT USES 1 MG AT HS AND 0.5 MG AT NOON doxycycline hyclate 100 mg capsule 100 mg PO BID Qty: 14 0RF Rx Instructions: Avoid sun exposure. Take with meal. Take 1 pill every 12 hours x 7 days nitroglycerin 0.4 mg tablet, sublingual 0.4 mg Sublingual PRN Qty: 25 2RF Rx Instructions: 1 TAB SL PRN melatonin 10 mg capsule 10 mg PO HS PRN Adult 50 Plus Probiotic 4 billion cell capsule 4,000 mmu cells PO DAILY Qty: 30 0RF Rx Instructions: administer with a meal pantoprazole [Protonix] 40 mg tablet,delayed release (DR/EC) 40 mg PO DAILY Qty: 30 12RF acetaminophen [Tylenol] 325 MG tablet 650 mg PO Q4H PRN CPAP (DME) lancets [OneTouch Delica Lancets] 1 EACH misc 1 ea Intradermal BID Qty: 200 Rx Instructions: DX: 250.00 (DME) OneTouch Ultra Test 1 EACH strip 1 strip Miscellaneous DAILY Qty: 100 Rx Instructions: DX: 250.00 oral meds amlodipine 5 mg tablet 5 mg PO DAILY Qty: 90 4RF Rx Instructions: 1 TAB DAILY clopidogrel [Plavix] 75 mg tablet 75 mg PO DAILY Qty: 90 4RF Metoprolol Succinate 25 MG TAB.ER.24H 25 mg PO DAILY Qty: 90 4RF Rx Instructions: 1 TAB DAILY simvastatin 10 mg tablet 10 mg PO DAILY Qty: 90 4RF Rx Instructions: 1 TAB DAILY losartan [Cozaar] 100 mg tablet 100 mg PO DAILY Qty: 90 4RF Rx Instructions: 1 TAB DAILY albuterol sulfate [Ventolin HFA] 90 mcg/actuation HFA aerosol inhaler 2 puff IH Q4H PRN (Reason: shortness of breath or wheezing) Qty: 8.5 11RF aspirin 81 mg Tablet,Delayed Release (Dr/Ec) 81 mg PO DAILY lamotrigine 100 mg tablet 100 mg PO QAM Label Comments: TAKE ONE TABLET BY MOUTH TWICE A DAY buspirone 15 mg tablet 15 mg PO BID Label Comments: TAKE ONE TABLET BY MOUTH TWICE A DAY trazodone 50 mg tablet 100 mg PO HS PRN Rx Instructions: 1-tab at HS PRN simethicone 125 mg tablet,chewable 125 mg PO TID PRN (Reason: abdominal distention) Qty: 30 0RF albuterol sulfate 2.5 mg/0.5 mL solution for nebulization 2.5 mg inhalation Q4H Qty: 30 0RF prednisone 10 mg tablet See Rx Instructions .ROUTE .COMPLEX Qty: 16 0RF Rx Instructions: Take 4 tabs daily for 1 day then 3 tabs daily for 2 days then 2 tabs daily for 2 days then 1 tab daily for 2 days albuterol sulfate 2.5 mg /3 mL (0.083 %) solution for nebulization 2.5 mg IH Q4H PRN (Reason: shortness of breath or wheezing) Qty: 75 0RF (DME) nebulizers [Aeroneb Go Nebulizer] [facility] See Rx Instructions .Route Qty: 1 0RF Rx Instructions: As directed (DME) blood-glucose meter [FreeStyle Lite Meter] Kit See Rx Instructions .ROUTE .MEDSUPPLY Qty: 1 0RF Rx Instructions: As directed (DME) FreeStyle Lite Strips Strip See Rx Instructions .ROUTE .MEDSUPPLY Qty: 10 0RF Rx Instructions: As directed Held metformin 500 mg tablet 1,000 mg PO BID Hold Instructions: Resume on 06/05/22. Please hold metformin for 48 hours Discharge Instructions Instructions: Abdominal Pain (ED) Additional Instructions: Allow for bowel rest over the next 3-4 days. Maintain a clear liquid diet today and tomorrow. You may advance your diet slowly to soft bland foods thereafter. Please follow-up with your primary care physician in the next 1 to 2 days for repeat abdominal exam. Please follow-up with gastroenterology. Return to the ER immediately for any worsening or new concerning symptoms. Referrals: Luis E Narayan [Primary Care Provider] - Discharge Data Discharge Date/Time-TO BE ENTERED AT DEPARTURE: 06/03/22 17:00 Medical Decision Making [age] ---year-old female with multiple medical problems including history of diverticulitis last month that was treated with 7-day course of Augmentin, here with worsening left lower quadrant pain over the past 3 days it feels like prior diverticulitis flare. She also notes increased urinary frequency. Patient is hemodynamically stable. I am concerned about acute diverticulitis versus acute urinary infection. Patient does have a history of renal carcinoma status post resection. Plan to obtain abdominal CT to assess for acute surgical process including perforated viscus versus other. 1641 --CT of the abdomen pelvis was interpreted by Dr. Gonzalez: No acute intra- abdominal process, no diverticulitis. Labs reviewed and nondiagnostic. No leukocytosis. Normal LFTs. Normal lipase. Normal urinalysis. Unclear etiology for pain. I will have her follow-up with gastroenterology she already scheduling this with [facility]. She was encouraged to follow-up with her primary care physician over the next couple days for repeat abdominal exam. She was encouraged to return medially for any worsening or new concerning symptoms. Instructed Sign Out No HPI General Mode of arrival: ambulatory . Date/Time Provider Initiated Documentation: 06/03/22 15:51 . Limitations to Documentation: no limitations . Information obtained by: patient . HPI Narrative: 61-year-old female with history of diverticulitis, anxiety, atherosclerotic cardiovascular disease, COPD, renal carcinoma status post resection, hyperlipidemia hypertension, here with chief complaint of abdominal pain. Patient notes abdominal pain in the left lower quadrant that started about 3 days ago and has persisted. Pain is now moderate to severe. She denies associated fever. No associated loose stool or bright red blood per rectum. She does notes associated increased urinary frequency with no dysuria or hematuria. Patient was seen here on 04/13/2022 with similar symptoms and had a CT of the abdomen pelvis that revealed diverticulitis. She was treated with 7-day course of Augmentin. She notes symptoms did improve but never completely resolved. Related Data Home Medications Medication Instructions Recorded Confirmed Cpap 10/24/12 01/06/22 acetaminophen 325 mg tablet 650 mg PO Q4H PRN 10/24/12 06/03/22 (Tylenol) lancets 33 gauge (OneTouch Brit #200 ea 12/15/12 03/31/22 Lancets) blood sugar diagnostic (OneTouch #100 strips 01/24/14 03/31/22 Ultra Test strips) budesonide-formoterol HFA 80 2 puff inhalation BID #3 grams 05/01/18 06/03/22 mcg-4.5 mcg/actuation aerosol inhaler (Symbicort) inhalational spacing device #1 ea 05/01/18 03/31/22 (Aerochamber MV spacer) nitroglycerin 0.4 mg sublingual 0.4 mg sublingual PRN #25 tab-caps 05/04/18 06/03/22 tablet amlodipine 5 mg tablet 5 mg PO DAILY #90 tab-caps 07/27/18 06/03/22 clopidogrel 75 mg tablet (Plavix) 75 mg PO DAILY #90 tabs 07/27/18 06/03/22 simvastatin 10 mg tablet 10 mg PO DAILY #90 tab-caps 07/31/18 06/03/22 losartan 100 mg tablet (Cozaar) 100 mg PO DAILY #90 tab-caps 12/27/18 06/03/22 fluticasone propionate 50 1 spray intranasal BID PRN nasal 02/03/19 06/03/22 mcg/actuation nasal congestion #9.9 grams spray,suspension (Flonase Allergy Relief) loratadine 10 mg tablet (Claritin) 10 mg PO DAILY 02/03/19 06/03/22 lorazepam 1 mg tablet 0.5 - 1 mg PO BID PRN anxiety #30 02/19/19 06/03/22 tabs albuterol sulfate 90 mcg/actuation 2 puff inhalation Q4H PRN 08/29/19 06/03/22 aerosol inhaler (Ventolin HFA) shortness of breath or wheezing #8.5 grams metformin 500 mg tablet 1,000 mg PO BID 09/12/19 06/03/22 aspirin 81 mg tablet,delayed 81 mg PO DAILY 08/17/20 06/03/22 release buspirone 15 mg tablet 15 mg PO BID 08/17/20 06/03/22 lamotrigine 100 mg tablet 100 mg PO QAM 08/17/20 06/03/22 trazodone 50 mg tablet 100 mg PO HS PRN 08/17/20 06/03/22 blood sugar diagnostic (FreeStyle #10 ea 12/06/20 06/03/22 Lite Strips) blood-glucose meter (FreeStyle #1 ea 12/06/20 03/31/22 Lite Meter kit) melatonin 10 mg capsule 10 mg PO HS PRN 02/23/21 06/03/22 lactobacillus combination no.9 4 4,000 mmu cells PO DAILY #30 caps 10/13/21 06/03/22 billion cell capsule (Adult 50 Plus Probiotic) simethicone 125 mg chewable tablet 125 mg PO TID PRN abdominal 11/11/21 06/03/22 distention #30 tabs pantoprazole 40 mg tablet,delayed 40 mg PO DAILY #30 tabs 11/25/21 06/03/22 release (Protonix) doxycycline hyclate 100 mg capsule 100 mg PO BID #14 caps 03/28/22 06/03/22 albuterol sulfate 2.5 mg/0.5 mL 2.5 mg (0.5 mL) inhalation Q4H #30 03/31/22 06/03/22 solution for nebulization ea albuterol sulfate 2.5 mg/3 mL 2.5 mg (3 mL) inhalation Q4H PRN 04/03/22 06/03/22 (0.083 %) solution for nebulization shortness of breath or wheezing #75 mL nebulizers (Aeroneb Go Nebulizer) #1 ea 04/03/22 prednisone 10 mg tablet See Rx Instructions .Route 04/03/22 06/03/22 .COMPLEX #16 tabs Previous Rx's Medication Instructions Recorded budesonide-formoterol HFA 80 2 puff inhalation BID #3 grams 05/01/18 mcg-4.5 mcg/actuation aerosol inhaler (Symbicort) inhalational spacing device #1 ea 05/01/18 (Aerochamber MV spacer) nitroglycerin 0.4 mg sublingual 0.4 mg sublingual PRN #25 tab-caps 05/04/18 tablet amlodipine 5 mg tablet 5 mg PO DAILY #90 tab-caps 07/27/18 clopidogrel 75 mg tablet (Plavix) 75 mg PO DAILY #90 tabs 07/27/18 simvastatin 10 mg tablet 10 mg PO DAILY #90 tab-caps 07/31/18 losartan 100 mg tablet (Cozaar) 100 mg PO DAILY #90 tab-caps 12/27/18 fluticasone propionate 50 1 spray intranasal BID PRN nasal 02/03/19 mcg/actuation nasal congestion #9.9 grams spray,suspension (Flonase Allergy Relief) lorazepam 1 mg tablet 0.5 - 1 mg PO BID PRN anxiety #30 02/19/19 tabs albuterol sulfate 90 mcg/actuation 2 puff inhalation Q4H PRN 08/29/19 aerosol inhaler (Ventolin HFA) shortness of breath or wheezing #8.5 grams blood sugar diagnostic (FreeStyle #10 ea 12/06/20 Lite Strips) blood-glucose meter (FreeStyle #1 ea 12/06/20 Lite Meter kit) lactobacillus combination no.9 4 4,000 mmu cells PO DAILY #30 caps 10/13/21 billion cell capsule (Adult 50 Plus Probiotic) simethicone 125 mg chewable tablet 125 mg PO TID PRN abdominal 11/11/21 distention #30 tabs pantoprazole 40 mg tablet,delayed 40 mg PO DAILY #30 tabs 11/25/21 release (Protonix) doxycycline hyclate 100 mg capsule 100 mg PO BID #14 caps 03/28/22 albuterol sulfate 2.5 mg/0.5 mL 2.5 mg (0.5 mL) inhalation Q4H #30 03/31/22 solution for nebulization ea albuterol sulfate 2.5 mg/3 mL 2.5 mg (3 mL) inhalation Q4H PRN 04/03/22 (0.083 %) solution for nebulization shortness of breath or wheezing #75 mL nebulizers (Aeroneb Go Nebulizer) #1 ea 04/03/22 prednisone 10 mg tablet See Rx Instructions .Route 04/03/22 .COMPLEX #16 tabs Allergies Allergy/AdvReac Type Severity Reaction Status Date / Time azithromycin AdvReac Mild Nausea Verified 06/03/22 15:35 codeine AdvReac Mild Nausea Verified 11/25/22 15:35 erythromycin base AdvReac Mild Nausea Verified 06/03/22 15:35 ibuprofen AdvReac Mild Nausea Verified 06/03/22 15:35 lisinopril AdvReac Mild cough Verified 06/03/22 15:35 NSAIDS (Non-Steroidal AdvReac Mild Nausea Verified 06/03/22 15:35 Anti-Inflamma General Stated Complaint: Abd Prob MONICA: 3 Review of Systems All systems reviewed & are unremarkable except as noted in HPI and below Constitutional Constitutional: Denies fever(s) Gastrointestinal Gastrointestinal: Reports as per HPI PFSH All Active Problems (Updated 06/06/22 @ 22:48 by RAEGAN Ramos) Abdominal pain (Acute) Liver cirrhosis secondary to nonalcoholic steatohepatitis ([place]) (Acute) Chronic diarrhea (Acute) Epigastric pain (Acute) Hyperplastic colon polyp (Acute) ASCVD (arteriosclerotic cardiovascular disease) (Acute) 10/15 anterolat NSTE IN; stent x 4; 10/15 echo-EF 55%; inf.wall hypokinesis; mild Anxiety (Acute) after IN decreased memory/concentration--[facility] neurology COPD (chronic obstructive pulmonary disease) (Acute) continues to smoke Depressive disorder (Acute) fatigue Diabetic peripheral neuropathy associated with type 2 diabetes mellitus (Acute 03/03/16) Essential hypertension (Acute 05/03/13) Urinary, incontinence, stress female (Acute 09/13/13) Heart murmur (Acute 09/13/13) 10/21 echo LVEF 70% with LVH, aoritc valve thickened but opens well (no signif aortic stenosis) [facility] Echo 02/05/19 - LVH (mild-mod), EeF= 60-65%, systolic function normal, ascending aorta mildly dilated Hyperlipidemia (Acute 12/18/12) Morbid obesity (Acute) Numbness and tingling in right hand (Acute 03/03/16) Obstructive sleep apnea syndrome (Acute 03/27/10) [facility] sleep lab Pap smear abnormality of cervix with LGSIL (Acute) LGSIL +HPV; BX darcie I Postmenopausal bleeding (Acute 09/21/11) atypical endometrial hyperplasia Sciatica (Acute 07/04/13) left sciatica, MRI [facility] 07/22/13: L3-4 disc extrusion Skin tags, multiple acquired (Acute 02/15/16) Smoker (Acute) Type II diabetes mellitus, uncontrolled (Acute) Asthma (Chronic) Status post arthroscopy of left knee (Acute) History of section (Acute) Family history of malignant neoplasm of breast (Acute 09/11/14) Fever (Acute) She is febrile and has both abdominal and chest symptoms. We will send to the emergency room. Upper respiratory infection (Acute) Hyperglycemia (Acute) Acute bronchospasm (Acute) Seasonal allergies (Acute) History of COPD (Acute) Fatty liver (Acute) Diverticulosis (Acute) Constipation (Acute) Incontinence (Acute) Pedal edema (Acute) Varicose veins of lower extremity (Acute) Bipolar disorder (Chronic) Compliant with therapeutic regimen (Acute) Caren, oral (Acute) Allergic rhinitis (Acute) Medical History Anxiety Atherosclerotic cardiovascular disease COPD (chronic obstructive pulmonary disease) Depression Heart murmur History of renal carcinoma Hx of malignant neoplasm of eye Hyperlipidemia Hypertension Morbid obesity with BMI of 40.0-44.9, adult Plantar fasciitis of left foot Sleep apnea Stress incontinence in female Surgical History Arthroplasty of knee athroscopy not arthroplasty. Cervical Procedure BX DARCIE I section (~1981) H/O esophagogastroduodenoscopy (~03/10/21) S/P colonoscopy (~03/10/21) Stent placement X 4 TO LCX-1995 Family History Mother Personal history of malignant neoplasm UTERINE CA; HYSTERECTOMY AGE 76 Uterine cancer Hysterectomy at 76 Father Heart disease Brother Diabetes Cancer Brother No problems noted. Brother No problems noted. Social History Smoking/Tobacco Use Status: Current every day Tobacco Type: cigarettes Smoking packs per day: 1 Smoking cigarettes per day: 20.0 Smoking risk assessment performed?: Yes Alcohol Intake: former Drug use: Never Substance use type: does not use Household members: significant other Housing: house Communication Needs: None Do you need help understanding health information?: Rarely Pets and animals: Yes Pets and animals: dog(s) Do you think of yourself as: straight/heterosexual Current gender identity: female What is your relationship status?: living with partner How often do you talk on the phone with friends or family?: three or more times per week How often do you get together with friends or relatives?: decline to answer How often do you attend restorationist or jew services?: decline to answer Do you belong to any clubs or organized social groups?: no Panel score (0-1 are the most socially isolated patients): 2 What type of physical activity do you participate in: none Duration: < 15 minutes/day Frequency: daily Katerina/Restorationist: none Special katerina needs: No Seatbelt use: sometimes Helmet use: Yes Helmet use: always Drive intox or ride w/intox fork truck driver: No Do you feel safe at home: Yes Do you feel safe in your relationship?: Yes Exam Const General: cooperative and no acute distress HENMT Mouth: moist mucous membranes Eyes Conjunctivae: normal conjunctivae Sclera: normal sclerae Resp Auscultation: clear to auscultation bilaterally, no rales, no rhonchi and no wheezes Cardio Rate: regular rate and not tachycardic Rhythm: regular rhythm GI Inspection: obesity Palpation: soft, not firm, no guarding, no masses, not rigid and tender in the LLQ Auscultation: normal bowel sounds Skin General skin exam: no rashes or lesions noted Neuro General: patient alert, patient awake and tone normal Extrem General: edema Laterality: bilateral (trace) Psych Appearance: grossly normal Mental Status: mental status grossly normal Course Vital Signs Vital signs: Vital Signs Temperature 36.9 C 06/03/22 15:15 Pulse 84 06/03/22 15:15 Respiratory Rate 18 06/03/22 15:15 Blood Pressure 161/89 H 06/03/22 15:15 Pulse Oximetry 98 06/03/22 15:15 Temperature 36.9 C 06/03/22 15:15 Temperature Source Oral 06/03/22 15:15 Pulse 84 06/03/22 15:15 Respiratory Rate 18 06/03/22 15:15 Respiratory Effort Non-Labored 06/03/22 15:29 Blood Pressure 161/89 H 06/03/22 15:15 Blood Pressure Position Sitting 06/03/22 15:15 Pulse Oximetry 98 06/03/22 15:15 Oxygen Delivery Method Room Air 06/03/22 15:15 Oxygen Flow Rate 0 06/03/22 15:15 Pain Level 7 06/03/22 15:15 Comment 06/03/22 15:15
[2022-06-03 16:22] LABS: Abs Immature Grans 0.03 10^3/uL (0.0-0.06); Absolute Basophil Count 0.05 10^3/uL (0.0-0.2); Absolute Eosinophil Count 0.14 10^3/uL (0.0-0.7); Absolute Lymphocyte Count 2.12 10^3/uL (1.2-3.4); Absolute Monocyte Count 0.59 10^3/uL (0.1-0.8); Absolute Neutrophil Count 4.31 10^3/uL (1.2-6.7); Basophils % 0.7; Eosinophils % 1.9; HCT 40.5 % (36.0-46.0); HGB 13.5 g/dL (11.2-15.7); Immature Grans % 0.4; Lymphocytes % 29.3; MCH 28.1 pg (27.0-33.0); MCHC 33.3 % (32.0-36.0); MCV 84 fL (80-95); MPV 9.3 fL (8.0-11.0); Monocytes % 8.1; Neutrophils % 59.6; Platelet Count 417 10^3/uL (130-400); RDW 13.9 % (11.7-14.6); RDW-SD 43.4 fL; WBC 7.24 10^3/uL (4.4-10.8)
[2022-06-03 16:26] LABS: Bilirubin Negative (Negative); Blood Negative (Negative); Clarity Clear (Clear); Glucose Negative (Negative); Ketones Negative (Negative); Leukocyte Esterase Negative (Negative); Nitrite Negative (Negative); Specific Gravity >= 1.030 (1.005-1.025); Urobilinogen 0.2 EU/dL (Up TO 0.2)
[2022-06-03] MEDS: Omnipaque 350 MG/ML 500 ML BTL-Imaging package 100 ML IJ (16:28)
[2022-06-03] MEDS: Normal Saline - Diluent 50 ML VIAL IJ (16:28)
[2022-06-03 16:38] LABS: ALT 34 U/L (14-59); AST 18 U/L (15-37); Albumin 3.8 g/dL (3.4-5.0); Alkaline Phosphatase 116 U/L (46-116); Anion Gap 6.4 mmol/L (3-11); BUN 14 mg/dL (7-18); Bilirubin, Total 0.4 mg/dL (0.2-1.0); CO2 29.6 mmol/L (21.0-32.0); CREATININE 0.9 mg/dL (0.55-1.02); Calcium 9.3 mg/dL (8.5-10.1); Chloride 102 mmol/L (98-107); Estimated GFR 72.28 (mL/min/1.73m2); Glucose 223 mg/dL (74-106); Lipase 204 U/L (73-393); Potassium 3.9 mmol/L (3.5-5.1); Sodium 138 mmol/L (136-145); Total Protein 7.7 g/dL (6.4-8.2)
== END 2022-06-03 17:00 | disposition home or self-care (01) ==
PROVIDERS: Emergency Provider Student in an Organized Health Care Education/Training Program; PCP Family Medicine
DX: R10.32 Left lower quadrant pain (principal); J44.9 Chronic obstructive pulmonary disease, unspecified; E78.5 Hyperlipidemia, unspecified; I10 Essential (primary) hypertension; Z85.528 Personal history of other malignant neoplasm of kidney; Z87.19 Personal history of other diseases of the digestive system
CPT/HCPCS: 36415; 80053; 83690; 99285; 74177; 81003; 85025; 99284

== ENCOUNTER 2022-06-06 20:36 | Emergency (ER) | payer MEDICARE, MEDICAID, SELFPAY ==
[2022-06-06 20:39] VITALS: BP 143/98; PULSE 91; RESP 16; TEMP 36.3; O2SAT 96
--- NOTE | 2022-06-06 20:55 | W.ED.GENAD ---
Discharge Plan Disposition Patient Disposition: Home Condition: Stable Discharge Details Clinical Impression: Abdominal pain Primary Care Provider: Luis E Narayan ED Provider: Domingo Claudio Home Meds and New Rx's Prescriptions: Continued budesonide-formoterol [Symbicort] 80-4.5 mcg/actuation HFA aerosol inhaler 2 puff Inhalation BID Qty: 3 11RF (DME) Aerochamber MV spacer See Dose Instructions .Route .MEDSUPPLY Qty: 1 0RF Dose Instruction: As directed Rx Instructions: As directed fluticasone propionate [Flonase Allergy Relief] 50 mcg/actuation spray,suspension 1 spray KUMAR BID PRN (Reason: nasal congestion) Qty: 9.9 3RF Rx Instructions: administer into each nostril loratadine [Claritin] 10 mg tablet 10 mg PO DAILY lorazepam 1 mg tablet 0.5 - 1 mg PO BID PRN (Reason: anxiety) Qty: 30 0RF Rx Instructions: 12/06/20 PT USES 1 MG AT HS AND 0.5 MG AT NOON doxycycline hyclate 100 mg capsule 100 mg PO BID Qty: 14 0RF Rx Instructions: Avoid sun exposure. Take with meal. Take 1 pill every 12 hours x 7 days nitroglycerin 0.4 mg tablet, sublingual 0.4 mg Sublingual PRN Qty: 25 2RF Rx Instructions: 1 TAB SL PRN melatonin 10 mg capsule 10 mg PO HS PRN Adult 50 Plus Probiotic 4 billion cell capsule 4,000 mmu cells PO DAILY Qty: 30 0RF Rx Instructions: administer with a meal pantoprazole [Protonix] 40 mg tablet,delayed release (DR/EC) 40 mg PO DAILY Qty: 30 12RF acetaminophen [Tylenol] 325 MG tablet 650 mg PO Q4H PRN CPAP (DME) lancets [OneTouch Delica Lancets] 1 EACH misc 1 ea Intradermal BID Qty: 200 Rx Instructions: DX: 250.00 (DME) OneTouch Ultra Test 1 EACH strip 1 strip Miscellaneous DAILY Qty: 100 Rx Instructions: DX: 250.00 oral meds amlodipine 5 mg tablet 5 mg PO DAILY Qty: 90 4RF Rx Instructions: 1 TAB DAILY clopidogrel [Plavix] 75 mg tablet 75 mg PO DAILY Qty: 90 4RF Metoprolol Succinate 25 MG TAB.ER.24H 25 mg PO DAILY Qty: 90 4RF Rx Instructions: 1 TAB DAILY simvastatin 10 mg tablet 10 mg PO DAILY Qty: 90 4RF Rx Instructions: 1 TAB DAILY losartan [Cozaar] 100 mg tablet 100 mg PO DAILY Qty: 90 4RF Rx Instructions: 1 TAB DAILY albuterol sulfate [Ventolin HFA] 90 mcg/actuation HFA aerosol inhaler 2 puff IH Q4H PRN (Reason: shortness of breath or wheezing) Qty: 8.5 11RF aspirin 81 mg Tablet,Delayed Release (Dr/Ec) 81 mg PO DAILY lamotrigine 100 mg tablet 100 mg PO QAM Label Comments: TAKE ONE TABLET BY MOUTH TWICE A DAY buspirone 15 mg tablet 15 mg PO BID Label Comments: TAKE ONE TABLET BY MOUTH TWICE A DAY trazodone 50 mg tablet 100 mg PO HS PRN Rx Instructions: 1-tab at HS PRN simethicone 125 mg tablet,chewable 125 mg PO TID PRN (Reason: abdominal distention) Qty: 30 0RF albuterol sulfate 2.5 mg/0.5 mL solution for nebulization 2.5 mg inhalation Q4H Qty: 30 0RF prednisone 10 mg tablet See Rx Instructions .ROUTE .COMPLEX Qty: 16 0RF Rx Instructions: Take 4 tabs daily for 1 day then 3 tabs daily for 2 days then 2 tabs daily for 2 days then 1 tab daily for 2 days albuterol sulfate 2.5 mg /3 mL (0.083 %) solution for nebulization 2.5 mg IH Q4H PRN (Reason: shortness of breath or wheezing) Qty: 75 0RF (DME) nebulizers [Aerone[employer] Go Nebulizer] [facility] [place] See Rx Instructions .Route Qty: 1 0RF Rx Instructions: As directed metformin 500 mg tablet 1,000 mg PO BID Hold Instructions: Resume on 06/05/22. Please hold metformin for 48 hours (DME) blood-glucose meter [FreeStyle Lite Meter] Kit See Rx Instructions .ROUTE .MEDSUPPLY Qty: 1 0RF Rx Instructions: As directed (DME) FreeStyle Lite Strips Strip See Rx Instructions .ROUTE .MEDSUPPLY Qty: 10 0RF Rx Instructions: As directed Discharge Instructions Instructions: Abdominal Pain (ED) Additional Instructions: Laboratory values at this time are unremarkable for any obvious emergent process. A single dose of Bentyl has been provided. We discussed obtaining a repeat CT but given you had a normal CT just a few days ago, you prefer not to pursue this and I believe this to be perfectly reasonable. Please follow-up with your PCP tomorrow as already scheduled and at that time discuss your ongoing year-long symptoms as well as your wish to have a second opinion through a different GI specialist please watch for new or worsening symptoms and return to the ER for any concerns. Medical Decision Making 61-year-old female presents complaining of intermittent abdominal pain x1 year associate with chronic diarrhea. Patient seen recently, negative CT. Patient remains concerned of diverticulitis. Symptoms intermittent for 1 year. Has been seen by PCP, surgery, had a colonoscopy, seen by GI at [facility]. Scheduled to see PCP tomorrow. I had a very transparent conversation with the patient regarding her symptoms over 1 year, on multiple visits, CT imaging, colonoscopy, etc. I explained that I would certainly rule out any emergent process but may not be able to get to the bottom of her ongoing symptoms. I do feel as though following up with [facility] GI team is likely the best opportunity to get to the bottom of this. Discussed that I can certainly obtain IV access and repeat laboratory values and we could discuss a CT. She is agreeable to this plan. She also wonders if there is another medication that may help her, will provide 1 dose of Bentyl. Laboratory values reveal no leukocytosis, grossly unremarkable. She appears well, nontoxic, afebrile. We discussed her work-up here in the ER, discussed CT imaging, radiation, etc. Given she has normal laboratory values today and a recent normal CT with outpatient follow-up tomorrow she would like to be discharged and will follow up tomorrow to discuss further outpatient evaluation. I believe this to be perfectly reasonable. Strict discharge and return precautions were provided. Patient understands, is agreeable to this plan, and has no additional questions or concerns upon discharge. This documentation was generated using [employer] system, please disregard any oddities of phrase or misspellings. Medical Records Medical records reviewed: Yes I reviewed the patient's medical records. Lab Data Lab results reviewed: Yes I reviewed the patient's lab results. Labs: Laboratory Tests Range/Units 11/28/22 11/28/22 11/28/22 21:30 21:30 21:30 WBC (4.4-10.8) 10^3/uL 8.28 RBC (3.93-5.22) 10^6/uL 4.74 Hgb (11.2-15.7) g/dL 13.5 Hct (36.0-46.0) % 39.8 MCV (80-95) fL 84 MCH (27.0-33.0) pg 28.5 MCHC (32.0-36.0) % 33.9 RDW (11.7-14.6) % 13.8 Plt Count (130-400) 10^3/uL 403 H MPV (8.0-11.0) fL 9.1 Immature Gran % 0.2 Neutrophils % 54.7 Lymphocytes % 34.1 Monocytes % 8.6 Eosinophils % 1.8 Basophils % 0.6 Nucleated RBC % (0.0-0.3) % 0.0 Absolute Neutrophils (1.2-6.7) 10^3/uL 4.53 Absolute Lymphocytes (1.2-3.4) 10^3/uL 2.82 Absolute Monocytes (0.1-0.8) 10^3/uL 0.71 Absolute Eosinophils (0.0-0.7) 10^3/uL 0.15 Absolute Basophils (0.0-0.2) 10^3/uL 0.05 Sodium (136-145) mmol/L 138 Potassium (3.5-5.1) mmol/L 4.4 Chloride (98-107) mmol/L 102 Carbon Dioxide (21.0-32.0) mmol/L 27.4 Anion Gap (3-11) mmol/L 8.6 BUN (7-18) mg/dL 16 Creatinine (0.55-1.02) mg/dL 1.0 Est GFR (CKD-EPI 2020) (mL/min/1.73m2) 63.70 Glucose (74-106) mg/dL 155 H Calcium (8.5-10.1) mg/dL 9.5 Total Bilirubin (0.2-1.0) mg/dL 0.3 AST (15-37) U/L 24 ALT (14-59) U/L 35 Alkaline Phosphatase (46-116) U/L 111 Total Protein (6.4-8.2) g/dL 7.0 Albumin (3.4-5.0) g/dL 3.8 Lipase (73-393) U/L 182 Urine Color (Yellow) Yellow Urine Clarity (Clear) Clear Urine pH (5-8) 6.0 Ur Specific [place] (1.005-1.025) >= 1.030 H Urine Protein (Negative) mg/dL Negative Urine Ketones (Negative) mg/dL Negative Urine Blood (Negative) Negative Urine Nitrite (Negative) Negative Urine Bilirubin (Negative) Negative Urine Urobilinogen (Up TO 0.2) EU/dL 0.2 Ur Leukocyte Esterase (Negative) Negative Urine Glucose (Negative) mg/dL Negative Sign Out No HPI General Mode of arrival: ambulatory. Date/Time Provider Initiated Documentation: 06/06/22 20:37. Limitations to Documentation: no limitations. Information obtained by: patient. History of Present Illness 61 year old F presents to the emergency department with the chief complaint of Abd pain, described as moderate, with intensity rated at 4. Quality is described as aching and other (Bloated), and is localized to the abdomen. Patient reports no radiation. Patient started experiencing this year(s) (1) and it has been intermittent. No relieving factors improve symptom(s), Eating worsens symptoms . Patient notes loss of appetite and nausea/vomiting (just mild nausea). Patient did receive the following treatments prior to arrival, none Related Data Home Medications Medication Instructions Recorded Confirmed Cpap 10/24/12 01/06/22 acetaminophen 325 mg tablet 650 mg PO Q4H PRN 10/24/12 06/03/22 (Tylenol) lancets 33 gauge ([employer]Touch Delica #200 ea 12/15/12 03/31/22 Lancets) blood sugar diagnostic ([employer] #100 strips 01/24/14 03/31/22 Ultra Test strips) budesonide-formoterol HFA 80 2 puff inhalation BID #3 grams 05/01/18 06/03/22 mcg-4.5 mcg/actuation aerosol inhaler (Symbicort) inhalational spacing device #1 ea 05/01/18 03/31/22 (Aerochamber MV spacer) nitroglycerin 0.4 mg sublingual 0.4 mg sublingual PRN #25 tab-caps 05/04/18 06/03/22 tablet amlodipine 5 mg tablet 5 mg PO DAILY #90 tab-caps 07/27/18 06/03/22 clopidogrel 75 mg tablet (Plavix) 75 mg PO DAILY #90 tabs 07/27/18 06/03/22 simvastatin 10 mg tablet 10 mg PO DAILY #90 tab-caps 07/31/18 06/03/22 losartan 100 mg tablet (Cozaar) 100 mg PO DAILY #90 tab-caps 12/27/18 06/03/22 fluticasone propionate 50 1 spray intranasal BID PRN nasal 02/03/19 06/03/22 mcg/actuation nasal congestion #9.9 grams spray,suspension (Flonase Allergy Relief) loratadine 10 mg tablet (Claritin) 10 mg PO DAILY 02/03/19 06/03/22 lorazepam 1 mg tablet 0.5 - 1 mg PO BID PRN anxiety #30 02/19/19 06/03/22 tabs albuterol sulfate 90 mcg/actuation 2 puff inhalation Q4H PRN 08/29/19 06/03/22 aerosol inhaler (Ventolin HFA) shortness of breath or wheezing #8.5 grams metformin 500 mg tablet 1,000 mg PO BID 09/12/19 06/03/22 aspirin 81 mg tablet,delayed 81 mg PO DAILY 08/17/20 06/03/22 release buspirone 15 mg tablet 15 mg PO BID 08/17/20 06/03/22 lamotrigine 100 mg tablet 100 mg PO QAM 08/17/20 06/03/22 trazodone 50 mg tablet 100 mg PO HS PRN 08/17/20 06/03/22 blood sugar diagnostic (FreeStyle #10 ea 12/06/20 06/03/22 Lite Strips) blood-glucose meter (FreeStyle #1 ea 12/06/20 03/31/22 Lite Meter kit) melatonin 10 mg capsule 10 mg PO HS PRN 02/23/21 06/03/22 lactobacillus combination no.9 4 4,000 mmu cells PO DAILY #30 caps 10/13/21 06/03/22 billion cell capsule (Adult 50 Plus Probiotic) simethicone 125 mg chewable tablet 125 mg PO TID PRN abdominal 11/11/21 06/03/22 distention #30 tabs pantoprazole 40 mg tablet,delayed 40 mg PO DAILY #30 tabs 11/25/21 06/03/22 release (Protonix) doxycycline hyclate 100 mg capsule 100 mg PO BID #14 caps 03/28/22 06/03/22 albuterol sulfate 2.5 mg/0.5 mL 2.5 mg (0.5 mL) inhalation Q4H #30 03/31/22 06/03/22 solution for nebulization ea albuterol sulfate 2.5 mg/3 mL 2.5 mg (3 mL) inhalation Q4H PRN 04/03/22 06/03/22 (0.083 %) solution for nebulization shortness of breath or wheezing #75 mL nebulizers ([employer] Go Nebulizer) #1 ea 04/03/22 prednisone 10 mg tablet See Rx Instructions .Route 04/03/22 06/03/22 .COMPLEX #16 tabs Previous Rx's Medication Instructions Recorded budesonide-formoterol HFA 80 2 puff inhalation BID #3 grams 05/01/18 mcg-4.5 mcg/actuation aerosol inhaler (Symbicort) inhalational spacing device #1 ea 05/01/18 (Aerochamber MV spacer) nitroglycerin 0.4 mg sublingual 0.4 mg sublingual PRN #25 tab-caps 05/04/18 tablet amlodipine 5 mg tablet 5 mg PO DAILY #90 tab-caps 07/27/18 clopidogrel 75 mg tablet (Plavix) 75 mg PO DAILY #90 tabs 07/27/18 simvastatin 10 mg tablet 10 mg PO DAILY #90 tab-caps 07/31/18 losartan 100 mg tablet (Cozaar) 100 mg PO DAILY #90 tab-caps 12/27/18 fluticasone propionate 50 1 spray intranasal BID PRN nasal 02/03/19 mcg/actuation nasal congestion #9.9 grams spray,suspension (Flonase Allergy Relief) lorazepam 1 mg tablet 0.5 - 1 mg PO BID PRN anxiety #30 02/19/19 tabs albuterol sulfate 90 mcg/actuation 2 puff inhalation Q4H PRN 08/29/19 aerosol inhaler (Ventolin HFA) shortness of breath or wheezing #8.5 grams blood sugar diagnostic (FreeStyle #10 ea 12/06/20 Lite Strips) blood-glucose meter (FreeStyle #1 ea 12/06/20 Lite Meter kit) lactobacillus combination no.9 4 4,000 mmu cells PO DAILY #30 caps 10/13/21 billion cell capsule (Adult 50 Plus Probiotic) simethicone 125 mg chewable tablet 125 mg PO TID PRN abdominal 11/11/21 distention #30 tabs pantoprazole 40 mg tablet,delayed 40 mg PO DAILY #30 tabs 11/25/21 release (Protonix) doxycycline hyclate 100 mg capsule 100 mg PO BID #14 caps 03/28/22 albuterol sulfate 2.5 mg/0.5 mL 2.5 mg (0.5 mL) inhalation Q4H #30 03/31/22 solution for nebulization ea albuterol sulfate 2.5 mg/3 mL 2.5 mg (3 mL) inhalation Q4H PRN 04/03/22 (0.083 %) solution for nebulization shortness of breath or wheezing #75 mL nebulizers (Aerone[employer] Go Nebulizer) #1 ea 04/03/22 prednisone 10 mg tablet See Rx Instructions .Route 04/03/22 .COMPLEX #16 tabs Allergies Allergy/AdvReac Type Severity Reaction Status Date / Time azithromycin AdvReac Mild Nausea Verified 06/03/22 15:35 codeine AdvReac Mild Nausea Verified 06/03/22 15:35 erythromycin base AdvReac Mild Nausea Verified 06/03/22 15:35 ibuprofen AdvReac Mild Nausea Verified 06/03/22 15:35 lisinopril AdvReac Mild cough Verified 06/03/22 15:35 NSAIDS (Non-Steroidal AdvReac Mild Nausea Verified 06/03/22 15:35 Anti-Inflamma General Stated Complaint: Abd Prob MONICA: 3 Review of Systems Constitutional Constitutional: Denies fever(s) Cardiovascular Cardiovascular: Denies chest pain and Denies dyspnea Respiratory Respiratory: Denies cough and Denies dyspnea Gastrointestinal Gastrointestinal: Reports abdominal pain, Reports belching, Denies melena, Reports bloating, Denies hematochezia, Denies constipation, Reports diarrhea, Reports nausea and Denies vomiting Genitourinary Genitourinary: Denies dysuria Musculoskeletal Musculoskeletal: Denies back pain Integumentary/Breasts Skin/Breast: Denies rash PFSH All Active Problems (Updated 06/06/22 @ 22:48 by RAEGAN Ramos) Abdominal pain (Acute) Liver cirrhosis secondary to nonalcoholic steatohepatitis ([place]) (Acute) Chronic diarrhea (Acute) Epigastric pain (Acute) Hyperplastic colon polyp (Acute) ASCVD (arteriosclerotic cardiovascular disease) (Acute) 10/15 anterolat NSTE ID; stent x 4; 10/15 echo-EF 55%; inf.wall hypokinesis; mild Anxiety (Acute) after ID decreased memory/concentration--[facility] neurology COPD (chronic obstructive pulmonary disease) (Acute) continues to smoke Depressive disorder (Acute) fatigue Diabetic peripheral neuropathy associated with type 2 diabetes mellitus (Acute 03/03/16) Essential hypertension (Acute 05/03/13) Urinary, incontinence, stress female (Acute 09/13/13) Heart murmur (Acute 09/13/13) 10/21 echo LVEF 70% with LVH, aoritc valve thickened but opens well (no signif aortic stenosis) [facility] Echo 02/05/19 - LVH (mild-mod), EeF= 60-65%, systolic function normal, ascending aorta mildly dilated Hyperlipidemia (Acute 12/18/12) Morbid obesity (Acute) Numbness and tingling in right hand (Acute 03/03/16) Obstructive sleep apnea syndrome (Acute 03/27/10) [facility] sleep lab Pap smear abnormality of cervix with LGSIL (Acute) LGSIL +HPV; BX darcie I Postmenopausal bleeding (Acute 09/21/11) atypical endometrial hyperplasia Sciatica (Acute 07/04/13) left sciatica, MRI [facility] 07/22/13: L3-4 disc extrusion Skin tags, multiple acquired (Acute 02/15/16) Smoker (Acute) Type II diabetes mellitus, uncontrolled (Acute) Asthma (Chronic) Status post arthroscopy of left knee (Acute) History of section (Acute) Family history of malignant neoplasm of breast (Acute 09/11/14) Fever (Acute) She is febrile and has both abdominal and chest symptoms. We will send to the emergency room. Upper respiratory infection (Acute) Hyperglycemia (Acute) Acute bronchospasm (Acute) Seasonal allergies (Acute) History of COPD (Acute) Fatty liver (Acute) Diverticulosis (Acute) Constipation (Acute) Incontinence (Acute) Pedal edema (Acute) Varicose veins of lower extremity (Acute) Bipolar disorder (Chronic) Compliant with therapeutic regimen (Acute) Caren, oral (Acute) Allergic rhinitis (Acute) Medical History Anxiety Atherosclerotic cardiovascular disease COPD (chronic obstructive pulmonary disease) Depression Heart murmur History of renal carcinoma Hx of malignant neoplasm of eye Hyperlipidemia Hypertension Morbid obesity with BMI of 40.0-44.9, adult Plantar fasciitis of left foot Sleep apnea Stress incontinence in female Surgical History Arthroplasty of knee athroscopy not arthroplasty. Cervical Procedure BX DARCIE I section (~1981) H/O esophagogastroduodenoscopy (~03/10/21) S/P colonoscopy (~03/10/21) Stent placement X 4 TO LCX-1995 Family History Mother Personal history of malignant neoplasm UTERINE CA; HYSTERECTOMY AGE 76 Uterine cancer Hysterectomy at 76 Father Heart disease Brother Diabetes Cancer Brother No problems noted. Brother No problems noted. Social History Smoking/Tobacco Use Status: Current every day Tobacco Type: cigarettes Smoking packs per day: 1 Smoking cigarettes per day: 20.0 Smoking risk assessment performed?: Yes Alcohol Intake: former Drug use: Never Substance use type: does not use Household members: significant other Housing: house Communication Needs: None Do you need help understanding health information?: Rarely Pets and animals: Yes Pets and animals: dog(s) Do you think of yourself as: straight/heterosexual Current gender identity: female What is your relationship status?: living with partner How often do you talk on the phone with friends or family?: three or more times per week How often do you get together with friends or relatives?: decline to answer How often do you attend religious or holiness services?: decline to answer Do you belong to any clubs or organized social groups?: no Panel score (0-1 are the most socially isolated patients): 2 What type of physical activity do you participate in: none Duration: < 15 minutes/day Frequency: daily Katerina/Nondenominational: none Special katerina needs: No Seatbelt use: sometimes Helmet use: Yes Helmet use: always 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 Do you feel safe at home: Yes Do you feel safe in your relationship?: Yes Exam Const General: cooperative, healthy appearing, comfortable and no acute distress Orientation: alert and awake [facility] Head: normal to inspection, normocephalic and atraumatic Face and sinus: normal facial exam Mouth: moist mucous membranes Eyes Conjunctivae: conjunctivae normal Neck Neck: normal visual inspection, full ROM, no meningeal signs, trachea midline and supple Resp Effort & Inspection: normal respiratory effort and able to speak in complete sentences Auscultation: clear to auscultation bilaterally Cardio Rate: regular rate Rhythm: regular rhythm GI Inspection: obesity Palpation: soft, not firm, no guarding, no pulsatile masses and nontender Auscultation: normal bowel sounds Back/Spine/Pelvis Back: No back tenderness Skin General skin exam: no rashes or lesions noted Neuro General: patient alert, patient awake, moves all extremities and no focal motor deficits Cognition: normal cognition Speech: speech normal Gait: normal gait Motor: muscle tone normal throughout Sensory Exam: no sensory deficits noted Psych Appearance: grossly normal Mental Status: mental status grossly normal Course Vital Signs Vital signs: Vital Signs Temperature 36.3 C L 06/06/22 20:39 Pulse 91 H 06/06/22 20:39 Respiratory Rate 16 06/06/22 20:39 Blood Pressure 143/98 H 06/06/22 20:39 Pulse Oximetry 96 06/06/22 20:39 Temperature 36.3 C L 06/06/22 20:39 Pulse 91 H 06/06/22 20:39 Respiratory Rate 16 06/06/22 20:39 Respiratory Effort 06/06/22 20:44 Blood Pressure 143/98 H 06/06/22 20:39 Pulse Oximetry 96 06/06/22 20:39 Pain Level 7 06/06/22 20:39
[2022-06-06 21:41] LABS: Abs Immature Grans 0.02 10^3/uL (0.0-0.06); Absolute Basophil Count 0.05 10^3/uL (0.0-0.2); Absolute Eosinophil Count 0.15 10^3/uL (0.0-0.7); Absolute Lymphocyte Count 2.82 10^3/uL (1.2-3.4); Absolute Monocyte Count 0.71 10^3/uL (0.1-0.8); Absolute Neutrophil Count 4.53 10^3/uL (1.2-6.7); Basophils % 0.6; Eosinophils % 1.8; HCT 39.8 % (36.0-46.0); HGB 13.5 g/dL (11.2-15.7); Immature Grans % 0.2; Lymphocytes % 34.1; MCH 28.5 pg (27.0-33.0); MCHC 33.9 % (32.0-36.0); MCV 84 fL (80-95); MPV 9.1 fL (8.0-11.0); Monocytes % 8.6; Neutrophils % 54.7; Platelet Count 403 10^3/uL (130-400); RBC 4.74 10^6/uL (3.93-5.22); RDW 13.8 % (11.7-14.6); RDW-SD 42.9 fL; WBC 8.28 10^3/uL (4.4-10.8)
[2022-06-06 21:47] LABS: Bilirubin Negative (Negative); Blood Negative (Negative); Clarity Clear (Clear); Glucose Negative (Negative); Ketones Negative (Negative); Leukocyte Esterase Negative (Negative); Nitrite Negative (Negative); Specific Gravity >= 1.030 (1.005-1.025); Urobilinogen 0.2 EU/dL (Up TO 0.2)
[2022-06-06 22:13] LABS: ALT 35 U/L (14-59); AST 24 U/L (15-37); Albumin 3.8 g/dL (3.4-5.0); Alkaline Phosphatase 111 U/L (46-116); Anion Gap 8.6 mmol/L (3-11); BUN 16 mg/dL (7-18); Bilirubin, Total 0.3 mg/dL (0.2-1.0); CO2 27.4 mmol/L (21.0-32.0); Calcium 9.5 mg/dL (8.5-10.1); Chloride 102 mmol/L (98-107); Glucose 155 mg/dL (74-106); Lipase 182 U/L (73-393); Potassium 4.4 mmol/L (3.5-5.1); Sodium 138 mmol/L (136-145)
[2022-06-06] MEDS: Dicyclomine 20 MG TAB PO (22:32)
--- NOTE | 2022-06-06 22:34 | NUR.NOTE ---
Referral faxed to Pulmonology Dr Eckert to f/u in the next couple of days for shortness of breath, productive cough.Nursing Note:
[2022-06-06 22:50] VITALS: BP 140/72; PULSE 92; RESP 16; TEMP 37.3; O2SAT 99
== END 2022-06-06 22:52 | disposition home or self-care (01) ==
PROVIDERS: Emergency Provider Physician Assistant; PCP Family Medicine
DX: R10.32 Left lower quadrant pain (principal); R19.7 Diarrhea, unspecified
CPT/HCPCS: 80053; 83690; 99283; 81003; 85025; J3490

== ENCOUNTER 2022-06-27 02:00 | Emergency (ER) | payer MEDICARE, MEDICAID, SELFPAY ==
[2022-06-27 02:03] VITALS: BP 151/80; PULSE 83; RESP 21; TEMP 36.8; O2SAT 98
--- NOTE | 2022-06-27 02:16 | ED.GENADUL_ITS ---
Discharge Plan Disposition Patient Disposition: Home Condition: Improving Discharge Details Clinical Impression: Acute sinusitis, Bronchospasm Primary Care Provider: Luis E Narayan ED Provider: Lennox Alvarez Home Meds and New Rx's Prescriptions: New amoxicillin-pot clavulanate 875-125 mg tablet 1 tab PO BID 10 Days Qty: 20 0RF prednisone 50 mg tablet 50 mg PO DAILY 5 Days Qty: 5 0RF Continued budesonide-formoterol [Symbicort] 80-4.5 mcg/actuation HFA aerosol inhaler 2 puff Inhalation BID Qty: 3 11RF fluticasone propionate [Flonase Allergy Relief] 50 mcg/actuation spray,suspension 1 spray KUMAR BID PRN (Reason: nasal congestion) Qty: 9.9 3RF Rx Instructions: administer into each nostril loratadine [Claritin] 10 mg tablet 10 mg PO DAILY lorazepam 1 mg tablet 0.5 - 1 mg PO BID PRN (Reason: anxiety) Qty: 30 0RF Rx Instructions: 12/06/20 PT USES 1 MG AT HS AND 0.5 MG AT NOON nitroglycerin 0.4 mg tablet, sublingual 0.4 mg Sublingual PRN Qty: 25 2RF Rx Instructions: 1 TAB SL PRN melatonin 10 mg capsule 10 mg PO HS PRN Adult 50 Plus Probiotic 4 billion cell capsule 4,000 mmu cells PO DAILY Qty: 30 0RF Rx Instructions: administer with a meal pantoprazole [Protonix] 40 mg tablet,delayed release (DR/EC) 40 mg PO DAILY Qty: 30 12RF acetaminophen [Tylenol] 325 MG tablet 650 mg PO Q4H PRN amlodipine 5 mg tablet 5 mg PO DAILY Qty: 90 4RF Rx Instructions: 1 TAB DAILY clopidogrel [Plavix] 75 mg tablet 75 mg PO DAILY Qty: 90 4RF Metoprolol Succinate 25 MG TAB.ER.24H 25 mg PO DAILY Qty: 90 4RF Rx Instructions: 1 TAB DAILY simvastatin 10 mg tablet 10 mg PO DAILY Qty: 90 4RF Rx Instructions: 1 TAB DAILY losartan [Cozaar] 100 mg tablet 100 mg PO DAILY Qty: 90 4RF Rx Instructions: 1 TAB DAILY albuterol sulfate [Ventolin HFA] 90 mcg/actuation HFA aerosol inhaler 2 puff IH Q4H PRN (Reason: shortness of breath or wheezing) Qty: 8.5 11RF aspirin 81 mg Tablet,Delayed Release (Dr/Ec) 81 mg PO DAILY lamotrigine 100 mg tablet 100 mg PO QAM Label Comments: TAKE ONE TABLET BY MOUTH TWICE A DAY buspirone 15 mg tablet 15 mg PO BID Label Comments: TAKE ONE TABLET BY MOUTH TWICE A DAY trazodone 50 mg tablet 100 mg PO HS PRN Rx Instructions: 1-tab at HS PRN simethicone 125 mg tablet,chewable 125 mg PO TID PRN (Reason: abdominal distention) Qty: 30 0RF albuterol sulfate 2.5 mg/0.5 mL solution for nebulization 2.5 mg inhalation Q4H Qty: 30 0RF albuterol sulfate 2.5 mg /3 mL (0.083 %) solution for nebulization 2.5 mg IH Q4H PRN (Reason: shortness of breath or wheezing) Qty: 75 0RF metformin 500 mg tablet 1,000 mg PO BID Hold Instructions: Resume on 06/05/22. Please hold metformin for 48 hours No Action (DME) Aerochamber MV spacer See Dose Instructions .Route .MEDSUPPLY Qty: 1 0RF Dose Instruction: As directed Rx Instructions: As directed doxycycline hyclate 100 mg capsule 100 mg PO BID Qty: 14 0RF Rx Instructions: Avoid sun exposure. Take with meal. Take 1 pill every 12 hours x 7 days CPAP (DME) lancets [OneTouch Delica Lancets] 1 EACH misc 1 ea Intradermal BID Qty: 200 Rx Instructions: DX: 250.00 (DME) OneTouch Ultra Test 1 EACH strip 1 strip Miscellaneous DAILY Qty: 100 Rx Instructions: DX: 250.00 oral meds prednisone 10 mg tablet See Rx Instructions .ROUTE .COMPLEX Qty: 16 0RF Rx Instructions: Take 4 tabs daily for 1 day then 3 tabs daily for 2 days then 2 tabs daily for 2 days then 1 tab daily for 2 days (DME) nebulizers [Aeroneb Go Nebulizer] Misc See Rx Instructions .Route Qty: 1 0RF Rx Instructions: As directed (DME) blood-glucose meter [FreeStyle Lite Meter] Kit See Rx Instructions .ROUTE .MEDSUPPLY Qty: 1 0RF Rx Instructions: As directed (DME) FreeStyle Lite Strips Strip See Rx Instructions .ROUTE .MEDSULY Qty: 10 0RF Rx Instructions: As directed Discharge Instructions Instructions: Sinusitis (ED) Additional Instructions: Home to rest this evening. Continue prednisone and antibiotics as prescribed until finished. Follow-up with regular doctor if not improving in 3 to 5 days time. Return to the ER for any acute concerns. Medical Decision Making 61-year-old female with a history of COPD presents with 7 to 8 days of sinus pain and pressure, postnasal drip and now cough with production of sputum. She had some slight shortness of breath at home after being recumbent and developing some mucus. This improved by the time of arrival. The patient is well-appearing. Her presentation and exam are concerning for a developing sinusitis. She is afebrile and oxygenating normally. Did note a few scant wheezes on exam. Patient given DuoNeb updraft, prednisone, and started on Augmentin. Discussed with her treatment for acute sinusitis and prednisone for mild bronchospasm. Do not feel chest x-ray will change plan of care. Patient is stable and appropriate for outpatient management. HPI General Mode of arrival: ambulatory . Date/Time Provider Initiated Documentation: 06/27/22 02:00 . Limitations to Documentation: no limitations . Information obtained by: patient . History of Present Illness 61 year old F presents to the emergency department with the chief complaint of Sinus pressure, nasal drainage, cough, described as moderate, and is localized to the head and chest. Patient reports no radiation. Patient started experiencing this day(s) and it has been intermittent. No relieving factors improve sym ptom(s), No exacerbating factors reported . Patient notes cough; denies fever/chills and shortness of breath. Patient did receive the following treatments prior to arrival, none Related Data Home Medications Medication Instructions Recorded Confirmed Cpap 10/24/12 01/06/22 acetaminophen 325 mg tablet 650 mg PO Q4H PRN 10/24/12 06/03/22 (Tylenol) lancets 33 gauge ([employer] Delica #200 ea 12/15/12 03/31/22 Lancets) blood sugar diagnostic ([employer] #100 strips 01/24/14 03/31/22 Ultra Test strips) budesonide-formoterol HFA 80 2 puff inhalation BID #3 grams 05/01/18 06/03/22 mcg-4.5 mcg/actuation aerosol inhaler (Symbicort) inhalational spacing device #1 ea 05/01/18 03/31/22 (Aerochamber MV spacer) nitroglycerin 0.4 mg sublingual 0.4 mg sublingual PRN #25 tab-caps 05/04/18 06/03/22 tablet amlodipine 5 mg tablet 5 mg PO DAILY #90 tab-caps 07/27/18 06/03/22 clopidogrel 75 mg tablet (Plavix) 75 mg PO DAILY #90 tabs 07/27/18 06/03/22 simvastatin 10 mg tablet 10 mg PO DAILY #90 tab-caps 07/31/18 06/03/22 losartan 100 mg tablet (Cozaar) 100 mg PO DAILY #90 tab-caps 12/27/18 06/03/22 fluticasone propionate 50 1 spray intranasal BID PRN nasal 02/03/19 06/03/22 mcg/actuation nasal congestion #9.9 grams spray,suspension (Flonase Allergy Relief) loratadine 10 mg tablet (Claritin) 10 mg PO DAILY 02/03/19 06/03/22 lorazepam 1 mg tablet 0.5 - 1 mg PO BID PRN anxiety #30 02/19/19 06/03/22 tabs albuterol sulfate 90 mcg/actuation 2 puff inhalation Q4H PRN 08/29/19 06/03/22 aerosol inhaler (Ventolin HFA) shortness of breath or wheezing #8.5 grams metformin 500 mg tablet 1,000 mg PO BID 09/12/19 06/03/22 aspirin 81 mg tablet,delayed 81 mg PO DAILY 08/17/20 06/03/22 release buspirone 15 mg tablet 15 mg PO BID 08/17/20 06/03/22 lamotrigine 100 mg tablet 100 mg PO QAM 08/17/20 06/03/22 trazodone 50 mg tablet 100 mg PO HS PRN 08/17/20 06/03/22 blood sugar diagnostic (FreeStyle #10 ea 12/06/20 06/03/22 Lite Strips) blood-glucose meter (FreeStyle #1 ea 12/06/20 03/31/22 Lite Meter kit) melatonin 10 mg capsule 10 mg PO HS PRN 08/17/21 11/25/22 lactobacillus combination no.9 4 4,000 mmu cells PO DAILY #30 caps 10/13/21 06/03/22 billion cell capsule (Adult 50 Plus Probiotic) simethicone 125 mg chewable tablet 125 mg PO TID PRN abdominal 11/11/21 06/03/22 distention #30 tabs pantoprazole 40 mg tablet,delayed 40 mg PO DAILY #30 tabs 11/25/21 06/03/22 release (Protonix) doxycycline hyclate 100 mg capsule 100 mg PO BID #14 caps 03/28/22 06/03/22 albuterol sulfate 2.5 mg/0.5 mL 2.5 mg (0.5 mL) inhalation Q4H #30 03/31/22 06/03/22 solution for nebulization ea albuterol sulfate 2.5 mg/3 mL 2.5 mg (3 mL) inhalation Q4H PRN 04/03/22 06/03/22 (0.083 %) solution for nebulization shortness of breath or wheezing #75 mL nebulizers ([employer] Go Nebulizer) #1 ea 04/03/22 prednisone 10 mg tablet See Rx Instructions .Route 04/03/22 06/03/22 .COMPLEX #16 tabs amoxicillin 875 mg-potassium 1 tab PO BID 10 days #20 tabs 06/27/22 clavulanate 125 mg tablet prednisone 50 mg tablet 50 mg PO DAILY 5 days #5 tabs 06/27/22 Previous Rx's Medication Instructions Recorded budesonide-formoterol HFA 80 2 puff inhalation BID #3 grams 05/01/18 mcg-4.5 mcg/actuation aerosol inhaler (Symbicort) inhalational spacing device #1 ea 05/01/18 (Aerochamber MV spacer) nitroglycerin 0.4 mg sublingual 0.4 mg sublingual PRN #25 tab-caps 05/04/18 tablet amlodipine 5 mg tablet 5 mg PO DAILY #90 tab-caps 07/27/18 clopidogrel 75 mg tablet (Plavix) 75 mg PO DAILY #90 tabs 07/27/18 simvastatin 10 mg tablet 10 mg PO DAILY #90 tab-caps 07/31/18 losartan 100 mg tablet (Cozaar) 100 mg PO DAILY #90 tab-caps 12/27/18 fluticasone propionate 50 1 spray intranasal BID PRN nasal 02/03/19 mcg/actuation nasal congestion #9.9 grams spray,suspension (Flonase Allergy Relief) lorazepam 1 mg tablet 0.5 - 1 mg PO BID PRN anxiety #30 02/19/19 tabs albuterol sulfate 90 mcg/actuation 2 puff inhalation Q4H PRN 08/29/19 aerosol inhaler (Ventolin HFA) shortness of breath or wheezing #8.5 grams blood sugar diagnostic (FreeStyle #10 ea 12/06/20 Lite Strips) blood-glucose meter (FreeStyle #1 ea 12/06/20 Lite Meter kit) lactobacillus combination no.9 4 4,000 mmu cells PO DAILY #30 caps 10/13/21 billion cell capsule (Adult 50 Plus Probiotic) simethicone 125 mg chewable tablet 125 mg PO TID PRN abdominal 11/11/21 distention #30 tabs pantoprazole 40 mg tablet,delayed 40 mg PO DAILY #30 tabs 11/25/21 release (Protonix) doxycycline hyclate 100 mg capsule 100 mg PO BID #14 caps 03/28/22 albuterol sulfate 2.5 mg/0.5 mL 2.5 mg (0.5 mL) inhalation Q4H #30 03/31/22 solution for nebulization ea albuterol sulfate 2.5 mg/3 mL 2.5 mg (3 mL) inhalation Q4H PRN 04/03/22 (0.083 %) solution for nebulization shortness of breath or wheezing #75 mL nebulizers (Aeroneb Go Nebulizer) #1 ea 04/03/22 prednisone 10 mg tablet See Rx Instructions .Route 04/03/22 .COMPLEX #16 tabs amoxicillin 875 mg-potassium 1 tab PO BID 10 days #20 tabs 06/27/22 clavulanate 125 mg tablet prednisone 50 mg tablet 50 mg PO DAILY 5 days #5 tabs 06/27/22 Allergies Allergy/AdvReac Type Severity Reaction Status Date / Time azithromycin AdvReac Mild Nausea Verified 06/03/22 15:35 codeine AdvReac Mild Nausea Verified 06/03/22 15:35 erythromycin base AdvReac Mild Nausea Verified 06/03/22 15:35 ibuprofen AdvReac Mild Nausea Verified 06/03/22 15:35 lisinopril AdvReac Mild cough Verified 06/03/22 15:35 NSAIDS (Non-Steroidal AdvReac Mild Nausea Verified 06/03/22 15:35 Anti-Inflamma General Stated Complaint: RespSymp MONICA: 3 Review of Systems Narrative: No fever. No chest pain. See HPI. Patient's had rhinorrhea, cough, sputum production, sinus pain and pressure. PFSH All Active Problems (Updated 06/27/22 @ 02:20 by Lennox Alvarez MD) Abdominal pain (Acute) Acute sinusitis (Acute) Bronchospasm (Acute) Liver cirrhosis secondary to nonalcoholic steatohepatitis ([facility]ERA) (Acute) Chronic diarrhea (Acute) Epigastric pain (Acute) Hyperplastic colon polyp (Acute) ASCVD (arteriosclerotic cardiovascular disease) (Acute) 10/15 anterolat NSTE AZ; stent x 4; 10/15 echo-EF 55%; inf.wall hypokinesis; mild Anxiety (Acute) after AZ decreased memory/concentration--[facility] [place] COPD (chronic obstructive pulmonary disease) (Acute) continues to smoke Depressive disorder (Acute) fatigue Diabetic peripheral neuropathy associated with type 2 diabetes mellitus (Acute 03/03/16) Essential hypertension (Acute 05/03/13) Urinary, incontinence, stress female (Acute 09/13/13) Heart murmur (Acute 09/13/13) 10/21 echo LVEF 70% with LVH, aoritc valve thickened but opens well (no signif aortic stenosis) [facility] Echo 02/05/19 - LVH (mild-mod), EeF= 60-65%, systolic function normal, ascending aorta mildly dilated Hyperlipidemia (Acute 12/18/12) Morbid obesity (Acute) Numbness and tingling in right hand (Acute 03/03/16) Obstructive sleep apnea syndrome (Acute 03/27/10) [facility] [place] Pap smear abnormality of cervix with LGSIL (Acute) LGSIL +HPV; BX darcie I Postmenopausal bleeding (Acute 09/21/11) atypical endometrial hyperplasia Sciatica (Acute 07/04/13) left sciatica, MRI [facility] 07/22/13: L3-4 disc extrusion Skin tags, multiple acquired (Acute 02/15/16) Smoker (Acute) Type II diabetes mellitus, uncontrolled (Acute) Asthma (Chronic) Status post arthroscopy of left knee (Acute) History of section (Acute) Family history of malignant neoplasm of breast (Acute 09/11/14) Fever (Acute) She is febrile and has both abdominal and chest symptoms. We will send to the emergency room. Upper respiratory infection (Acute) Hyperglycemia (Acute) Acute bronchospasm (Acute) Seasonal allergies (Acute) History of COPD (Acute) Fatty liver (Acute) Diverticulosis (Acute) Constipation (Acute) Incontinence (Acute) Pedal edema (Acute) Varicose veins of lower extremity (Acute) Bipolar disorder (Chronic) Compliant with therapeutic regimen (Acute) Caren, oral (Acute) Allergic rhinitis (Acute) Medical History Anxiety Atherosclerotic cardiovascular disease COPD (chronic obstructive pulmonary disease) Depression Heart murmur History of renal carcinoma Hx of malignant neoplasm of eye Hyperlipidemia Hypertension Morbid obesity with BMI of 40.0-44.9, adult Plantar fasciitis of left foot Sleep apnea Stress incontinence in female Surgical History Arthroplasty of knee athroscopy not arthroplasty. Cervical Procedure BX DARCIE I section (~1981) H/O esophagogastroduodenoscopy (~03/10/21) S/P colonoscopy (~03/10/21) Stent placement X 4 TO LCX-1995 Family History Mother Personal history of malignant neoplasm UTERINE CA; HYSTERECTOMY AGE 76 Uterine cancer Hysterectomy at 76 Father Heart disease Brother Diabetes Cancer Brother No problems noted. Brother No problems noted. Social History Smoking/Tobacco Use Status: Current every day Tobacco Type: cigarettes Smoking packs per day: 1 Smoking cigarettes per day: 20.0 Smoking risk assessment performed?: Yes Alcohol Intake: former Drug use: Never Substance use type: does not use Household members: significant other Housing: house Communication Needs: None Do you need help understanding health information?: Rarely Pets and animals: Yes Pets and animals: dog(s) Do you think of yourself as: straight/heterosexual Current gender identity: female What is your relationship status?: living with partner How often do you talk on the phone with friends or family?: three or more times per week How often do you get together with friends or relatives?: decline to answer How often do you attend hindu or mormonism services?: decline to answer Do you belong to any clubs or organized social groups?: no Panel score (0-1 are the most socially isolated patients): 2 What type of physical activity do you participate in: none Duration: < 15 minutes/day Frequency: daily Katerina/Advent: none Special katerina needs: No Seatbelt use: sometimes Helmet use: Yes Helmet use: always Drive intox or ride w/intox school bus driver/mechanic: No Do you feel safe at home: Yes Do you feel safe in your relationship?: Yes Exam Narrative Exam Narrative: GEN: awake, alert. Pleasant, well groomed, interactive. HEAD: Normocephalic, atraumatic ENT: Mucous membranes moist, oropharynx unremarkable, sinus tenderness to percussion external ear exam unremarkable EYES: PERRL, EOMI NECK: Full ROM, no NATASHA, no menigismus CHEST/RESP: Nontender, scant end expiratory wheeze bilaterally CARDIOVASCULAR: RRR, no murmur, rub stuart. 2+ Rad pulse bilateral ABDOMEN: Soft, nontender, no mass. +Bowel sounds EXT: Full ROM, no edema, no rash Neuro: Grossly normal neurologic exam, conversant, interactive. Psych: Speech fluent, thoughts congruent, affect normal Course Vital Signs Vital signs: Vital Signs Temperature 36.8 C 06/27/22 02:03 Pulse 83 06/27/22 02:03 Respiratory Rate 21 06/27/22 02:03 Blood Pressure 151/80 H 06/27/22 02:03 Pulse Oximetry 98 06/27/22 02:03 Temperature 36.8 C 06/27/22 02:03 Pulse 83 06/27/22 02:03 Respiratory Rate 21 06/27/22 02:03 Respiratory Effort 06/27/22 02:09 Blood Pressure 151/80 H 06/27/22 02:03 Pulse Oximetry 98 06/27/22 02:03 Oxygen Delivery Method Room Air 06/27/22 02:03 Oxygen Flow Rate 0 06/27/22 02:03 Pain Level 0 06/27/22 02:03
[2022-06-27] MEDS: Albuterol/Ipratropium 3 ML UPD VIAL UPD (02:25)
[2022-06-27] MEDS: predniSONE 40 MG, predniSONE 10 MG 50 MG PO (02:26)
[2022-06-27] MEDS: Amoxicillin 875/Clav. 125 TAB PO (02:26)
[2022-06-27 02:52] VITALS: BP 153/79; PULSE 87; RESP 20; O2SAT 98
== END 2022-06-27 02:50 | disposition home or self-care (01) ==
PROVIDERS: Emergency Provider Emergency Medicine; PCP Family Medicine
DX: J01.80 Other acute sinusitis (principal); J98.01 Acute bronchospasm; F17.210 Nicotine dependence, cigarettes, uncomplicated
CPT/HCPCS: 94640; 99283; J7512; J7620

== ENCOUNTER 2022-08-28 17:08 | Emergency (ER) | payer MEDICARE, MEDICAID, SELFPAY ==
[2022-08-28 17:14] VITALS: BP 160/95; PULSE 77; RESP 18; TEMP 36.5; O2SAT 98
--- NOTE | 2022-08-28 18:37 | W.ED.GENAD ---
Discharge Plan Disposition Patient Disposition: Home Condition: Stable Discharge Details Clinical Impression: Dental infection Primary Care Provider: Luis E Narayan ED Provider: Domingo Claudio Home Meds and New Rx's Prescriptions: New clindamycin HCl 300 mg capsule 300 mg PO Q8H 10 Days Qty: 30 0RF Continued budesonide-formoterol [Symbicort] 80-4.5 mcg/actuation HFA aerosol inhaler 2 puff Inhalation BID Qty: 3 11RF (DME) Aerochamber MV spacer See Dose Instructions .Route .MEDSUPPLY Qty: 1 0RF Dose Instruction: As directed Rx Instructions: As directed fluticasone propionate [Flonase Allergy Relief] 50 mcg/actuation spray,suspension 1 spray KUMAR BID PRN (Reason: nasal congestion) Qty: 9.9 3RF Rx Instructions: administer into each nostril loratadine [Claritin] 10 mg tablet 10 mg PO DAILY lorazepam 1 mg tablet 0.5 - 1 mg PO BID PRN (Reason: anxiety) Qty: 30 0RF Rx Instructions: 12/06/20 PT USES 1 MG AT HS AND 0.5 MG AT NOON doxycycline hyclate 100 mg capsule 100 mg PO BID Qty: 14 0RF Rx Instructions: Avoid sun exposure. Take with meal. Take 1 pill every 12 hours x 7 days nitroglycerin 0.4 mg tablet, sublingual 0.4 mg Sublingual PRN Qty: 25 2RF Rx Instructions: 1 TAB SL PRN melatonin 10 mg capsule 10 mg PO HS PRN Adult 50 Plus Probiotic 4 billion cell capsule 4,000 mmu cells PO DAILY Qty: 30 0RF Rx Instructions: administer with a meal pantoprazole [Protonix] 40 mg tablet,delayed release (DR/EC) 40 mg PO DAILY Qty: 30 12RF acetaminophen [Tylenol] 325 MG tablet 650 mg PO Q4H PRN CPAP (DME) lancets [OneTouch Delica Lancets] 1 EACH misc 1 ea Intradermal BID Qty: 200 Rx Instructions: DX: 250.00 (DME) OneTouch Ultra Test 1 EACH strip 1 strip Miscellaneous DAILY Qty: 100 Rx Instructions: DX: 250.00 oral meds amlodipine 5 mg tablet 5 mg PO DAILY Qty: 90 4RF Rx Instructions: 1 TAB DAILY clopidogrel [Plavix] 75 mg tablet 75 mg PO DAILY Qty: 90 4RF Metoprolol Succinate 25 MG TAB.ER.24H 25 mg PO DAILY Qty: 90 4RF Rx Instructions: 1 TAB DAILY simvastatin 10 mg tablet 10 mg PO DAILY Qty: 90 4RF Rx Instructions: 1 TAB DAILY losartan [Cozaar] 100 mg tablet 100 mg PO DAILY Qty: 90 4RF Rx Instructions: 1 TAB DAILY albuterol sulfate [Ventolin HFA] 90 mcg/actuation HFA aerosol inhaler 2 puff IH Q4H PRN (Reason: shortness of breath or wheezing) Qty: 8.5 11RF aspirin 81 mg Tablet,Delayed Release (Dr/Ec) 81 mg PO DAILY lamotrigine 100 mg tablet 100 mg PO QAM Patient Comments: TAKE ONE TABLET BY MOUTH TWICE A DAY buspirone 15 mg tablet 15 mg PO BID Patient Comments: TAKE ONE TABLET BY MOUTH TWICE A DAY trazodone 50 mg tablet 100 mg PO HS PRN Rx Instructions: 1-tab at HS PRN simethicone 125 mg tablet,chewable 125 mg PO TID PRN (Reason: abdominal distention) Qty: 30 0RF albuterol sulfate 2.5 mg/0.5 mL solution for nebulization 2.5 mg inhalation Q4H Qty: 30 0RF prednisone 10 mg tablet See Rx Instructions .ROUTE .COMPLEX Qty: 16 0RF Rx Instructions: Take 4 tabs daily for 1 day then 3 tabs daily for 2 days then 2 tabs daily for 2 days then 1 tab daily for 2 days albuterol sulfate 2.5 mg /3 mL (0.083 %) solution for nebulization 2.5 mg IH Q4H PRN (Reason: shortness of breath or wheezing) Qty: 75 0RF (DME) nebulizers [Aeroneb Go Nebulizer] Misc See Rx Instructions .Route Qty: 1 0RF Rx Instructions: As directed metformin 500 mg tablet 1,000 mg PO BID Hold Instructions: Resume on 06/05/22. Please hold metformin for 48 hours (DME) blood-glucose meter [FreeStyle Lite Meter] Kit See Rx Instructions .ROUTE .MEDSUPPLY Qty: 1 0RF Rx Instructions: As directed (DME) FreeStyle Lite Strips Strip See Rx Instructions .ROUTE .MEDSUPPLY Qty: 10 0RF Rx Instructions: As directed Discharge Instructions Instructions: Dental Abscess (ED) Additional Instructions: Clindamycin as directed, discontinue taking penicillin. Cool and/or warm compresses every 2 hours for 20 minutes. Salt water swish and spit as tolerated. Taken pack of hydrocodone and Zofran given, hydrocodone can cause drowsiness and/or constipation. You may want to take an [id number] stool softener while taking this medication. I strongly recommend that you quit smoking. Please watch for new or worsening symptoms and return to the ER for any concerns. Lastly, I would like you to contact your dentist first thing on Monday to discuss your ER visit and need for outpatient reevaluation. They may not want to pull your teeth if you are infection is worsening. Medical Decision Making 61-year-old female current smoker, reports left-sided dental pain for about a month, saw her dentist on and placed on penicillin, scheduled for dental extraction x2 on Monday. Patient reports that she does feels as though she is not getting any improvement over the past 4 days. Concerned about her discomfort and if she requires additional pain medication she will require nausea medication as well. Plan to DC her penicillin and initiate clindamycin. We will give a take-home pack of both hydrocodone and Zofran. Clinically she appears well, nontoxic, airway is patent, afebrile, no trismus. Standard discharge and return precautions were provided. Patient understands, is agreeable to this plan, and has no additional questions or concerns upon discharge. This documentation was generated using [employer] dictation system, please disregard any oddities of phrase or misspellings. Medical Records Medical records reviewed: Yes I reviewed the patient's medical records. HPI General Mode of arrival: ambulatory. Date/Time Provider Initiated Documentation: 08/28/22 18:26. Limitations to Documentation: no limitations. Information obtained by: patient. HPI Narrative: 61-year-old female, current smoker, overall poor dentition, past medical history of liver cirrhosis, CAD, anxiety, COPD, depression, diabetes, hypertension, hyperlipidemia, began taking penicillin 4 days ago prescribed from her dentist, scheduled to see her dentist in 2 days for a dental extraction, reports worsening pain. Patient reports that Tylenol is not helping with her discomfort. She denies fever, difficulty speaking or swallowing. Reports left ear pain. Denies chest pain, shortness of breath, coughing. Related Data Home Medications Medication Instructions Recorded Confirmed Cpap 10/24/12 01/06/22 acetaminophen 325 mg tablet 650 mg PO Q4H PRN 10/24/12 08/28/22 (Tylenol) lancets 33 gauge (OneTouch Delica #200 ea 12/15/12 03/31/22 Lancets) blood sugar diagnostic ([facility] strips 01/24/14 03/31/22 Ultra Test strips) budesonide-formoterol HFA 80 2 puff inhalation BID #3 grams 05/01/18 08/28/22 mcg-4.5 mcg/actuation aerosol inhaler (Symbicort) inhalational spacing device #1 ea 05/01/18 03/31/22 (Aerochamber MV spacer) nitroglycerin 0.4 mg sublingual 0.4 mg sublingual PRN #25 tab-caps 05/04/18 08/28/22 tablet amlodipine 5 mg tablet 5 mg PO DAILY #90 tab-caps 07/27/18 08/28/22 clopidogrel 75 mg tablet (Plavix) 75 mg PO DAILY #90 tabs 07/27/18 08/28/22 simvastatin 10 mg tablet 10 mg PO DAILY #90 tab-caps 07/31/18 08/28/22 losartan 100 mg tablet (Cozaar) 100 mg PO DAILY #90 tab-caps 12/27/18 06/03/22 fluticasone propionate 50 1 spray intranasal BID PRN nasal 02/03/19 08/28/22 mcg/actuation nasal congestion #9.9 grams spray,suspension (Flonase Allergy Relief) loratadine 10 mg tablet (Claritin) 10 mg PO DAILY 02/03/19 08/28/22 lorazepam 1 mg tablet 0.5 - 1 mg PO BID PRN anxiety #30 02/19/19 08/28/22 tabs albuterol sulfate 90 mcg/actuation 2 puff inhalation Q4H PRN 08/29/19 08/28/22 aerosol inhaler (Ventolin HFA) shortness of breath or wheezing #8.5 grams metformin 500 mg tablet 1,000 mg PO BID 09/12/19 08/28/22 aspirin 81 mg tablet,delayed 81 mg PO DAILY 08/17/20 08/28/22 release buspirone 15 mg tablet 15 mg PO BID 08/17/20 08/28/22 lamotrigine 100 mg tablet 100 mg PO QAM 08/17/20 08/28/22 trazodone 50 mg tablet 100 mg PO HS PRN 08/17/20 08/28/22 blood sugar diagnostic (FreeStyle #10 ea 12/06/20 06/03/22 Lite Strips) blood-glucose meter (FreeStyle #1 ea 12/06/20 03/31/22 Lite Meter kit) melatonin 10 mg capsule 10 mg PO HS PRN 02/23/21 08/28/22 lactobacillus combination no.9 4 4,000 mmu cells PO DAILY #30 caps 10/13/21 08/28/22 billion cell capsule (Adult 50 Plus Probiotic) simethicone 125 mg chewable tablet 125 mg PO TID PRN abdominal 11/11/21 08/28/22 distention #30 tabs pantoprazole 40 mg tablet,delayed 40 mg PO DAILY #30 tabs 11/25/21 08/28/22 release (Protonix) doxycycline hyclate 100 mg capsule 100 mg PO BID #14 caps 03/28/22 06/03/22 albuterol sulfate 2.5 mg/0.5 mL 2.5 mg (0.5 mL) inhalation Q4H #30 03/31/22 06/03/22 solution for nebulization ea albuterol sulfate 2.5 mg/3 mL 2.5 mg (3 mL) inhalation Q4H PRN 04/03/22 06/03/22 (0.083 %) solution for nebulization shortness of breath or wheezing #75 mL nebulizers ([employer] Go Nebulizer) #1 ea 04/03/22 prednisone 10 mg tablet See Rx Instructions .Route 04/03/22 08/28/22 .COMPLEX #16 tabs clindamycin HCl 300 mg capsule 300 mg PO Q8H 10 days #30 caps 08/28/22 Previous Rx's Medication Instructions Recorded budesonide-formoterol HFA 80 2 puff inhalation BID #3 grams 05/01/18 mcg-4.5 mcg/actuation aerosol inhaler (Symbicort) inhalational spacing device #1 ea 05/01/18 (Aerochamber MV spacer) nitroglycerin 0.4 mg sublingual 0.4 mg sublingual PRN #25 tab-caps 05/04/18 tablet amlodipine 5 mg tablet 5 mg PO DAILY #90 tab-caps 07/27/18 clopidogrel 75 mg tablet (Plavix) 75 mg PO DAILY #90 tabs 07/27/18 simvastatin 10 mg tablet 10 mg PO DAILY #90 tab-caps 07/31/18 losartan 100 mg tablet (Cozaar) 100 mg PO DAILY #90 tab-caps 12/27/18 fluticasone propionate 50 1 spray intranasal BID PRN nasal 02/03/19 mcg/actuation nasal congestion #9.9 grams spray,suspension (Flonase Allergy Relief) lorazepam 1 mg tablet 0.5 - 1 mg PO BID PRN anxiety #30 02/19/19 tabs albuterol sulfate 90 mcg/actuation 2 puff inhalation Q4H PRN 08/29/19 aerosol inhaler (Ventolin HFA) shortness of breath or wheezing #8.5 grams blood sugar diagnostic (FreeStyle #10 ea 12/06/20 Lite Strips) blood-glucose meter (FreeStyle #1 ea 12/06/20 Lite Meter kit) lactobacillus combination no.9 4 4,000 mmu cells PO DAILY #30 caps 10/13/21 billion cell capsule (Adult 50 Plus Probiotic) simethicone 125 mg chewable tablet 125 mg PO TID PRN abdominal 11/11/21 distention #30 tabs pantoprazole 40 mg tablet,delayed 40 mg PO DAILY #30 tabs 11/25/21 release (Protonix) doxycycline hyclate 100 mg capsule 100 mg PO BID #14 caps 03/28/22 albuterol sulfate 2.5 mg/0.5 mL 2.5 mg (0.5 mL) inhalation Q4H #30 03/31/22 solution for nebulization ea albuterol sulfate 2.5 mg/3 mL 2.5 mg (3 mL) inhalation Q4H PRN 04/03/22 (0.083 %) solution for nebulization shortness of breath or wheezing #75 mL nebulizers (Aeroneb Go Nebulizer) #1 ea 04/03/22 prednisone 10 mg tablet See Rx Instructions .Route 04/03/22 .COMPLEX #16 tabs clindamycin HCl 300 mg capsule 300 mg PO Q8H 10 days #30 caps 08/28/22 Allergies Allergy/AdvReac Type Severity Reaction Status Date / Time azithromycin AdvReac Mild Nausea Verified 08/28/22 17:36 codeine AdvReac Mild Nausea Verified 08/28/22 17:36 erythromycin base AdvReac Mild Nausea Verified 08/28/22 17:36 ibuprofen AdvReac Mild Nausea Verified 08/28/22 17:36 lisinopril AdvReac Mild cough Verified 08/28/22 17:36 NSAIDS (Non-Steroidal AdvReac Mild Nausea Verified 08/28/22 17:36 Anti-Inflamma General Stated Complaint: DentalOral MONICA: 4 Review of Systems Constitutional Constitutional: Denies fever(s) ENT Ears, Nose, Mouth, and Throat: Reports otalgia Cardiovascular Cardiovascular: Denies chest pain and Denies dyspnea Respiratory Respiratory: Denies dyspnea Gastrointestinal Gastrointestinal: Denies nausea and Denies vomiting Integumentary/Breasts Skin/Breast: Denies erythema PFSH All Active Problems Dental infection (Acute) Liver cirrhosis secondary to nonalcoholic steatohepatitis ([place]ER[place]) (Acute) Chronic diarrhea (Acute) Epigastric pain (Acute) Hyperplastic colon polyp (Acute) ASCVD (arteriosclerotic cardiovascular disease) (Acute) 10/15 anterolat NSTE LA; stent x 4; 10/15 echo-EF 55%; inf.wall hypokinesis; mild Anxiety (Acute) after LA decreased memory/concentration--[facility] neurology COPD (chronic obstructive pulmonary disease) (Acute) continues to smoke Depressive disorder (Acute) fatigue Diabetic peripheral neuropathy associated with type 2 diabetes mellitus (Acute 03/03/16) Essential hypertension (Acute 05/03/13) Urinary, incontinence, stress female (Acute 09/13/13) Heart murmur (Acute 09/13/13) 10/21 echo LVEF 70% with LVH, aoritc valve thickened but opens well (no signif aortic stenosis) [facility] Echo 02/05/19 - LVH (mild-mod), EeF= 60-65%, systolic function normal, ascending aorta mildly dilated Hyperlipidemia (Acute 12/18/12) Morbid obesity (Acute) Numbness and tingling in right hand (Acute 03/03/16) Obstructive sleep apnea syndrome (Acute 03/27/10) [facility] sleep lab Pap smear abnormality of cervix with LGSIL (Acute) LGSIL +HPV; BX darcie I Postmenopausal bleeding (Acute 09/21/11) atypical endometrial hyperplasia Sciatica (Acute 07/04/13) left sciatica, MRI [facility] 07/22/13: L3-4 disc extrusion Skin tags, multiple acquired (Acute 02/15/16) Smoker (Acute) Type II diabetes mellitus, uncontrolled (Acute) Asthma (Chronic) Status post arthroscopy of left knee (Acute) History of section (Acute) Family history of malignant neoplasm of breast (Acute 09/11/14) Fever (Acute) She is febrile and has both abdominal and chest symptoms. We will send to the emergency room. Upper respiratory infection (Acute) Hyperglycemia (Acute) Acute bronchospasm (Acute) Seasonal allergies (Acute) History of COPD (Acute) Fatty liver (Acute) Diverticulosis (Acute) Constipation (Acute) Incontinence (Acute) Pedal edema (Acute) Varicose veins of lower extremity (Acute) Bipolar disorder (Chronic) Compliant with therapeutic regimen (Acute) Caren, oral (Acute) Allergic rhinitis (Acute) Medical History Anxiety Atherosclerotic cardiovascular disease COPD (chronic obstructive pulmonary disease) Depression Heart murmur History of renal carcinoma Hx of malignant neoplasm of eye Hyperlipidemia Hypertension Morbid obesity with BMI of 40.0-44.9, adult Plantar fasciitis of left foot Sleep apnea Stress incontinence in female Surgical History Arthroplasty of knee athroscopy not arthroplasty. Cervical Procedure BX DARCIE I section (~1981) H/O esophagogastroduodenoscopy (~03/10/21) S/P colonoscopy (~03/10/21) Stent placement X 4 TO LCX-1995 Family History Mother Personal history of malignant neoplasm UTERINE CA; HYSTERECTOMY AGE 76 Uterine cancer Hysterectomy at 76 Father Heart disease Brother Diabetes Cancer Brother No problems noted. Brother No problems noted. Social History Smoking/Tobacco Use Status: Current every day Tobacco Type: cigarettes Smoking packs per day: 1 Smoking cigarettes per day: 20.0 Smoking risk assessment performed?: Yes Alcohol Intake: former Drug use: Never Substance use type: does not use Household members: significant other Housing: house Communication Needs: None Do you need help understanding health information?: Rarely Pets and animals: Yes Pets and animals: dog(s) Do you think of yourself as: straight/heterosexual Current gender identity: female What is your relationship status?: living with partner How often do you talk on the phone with friends or family?: three or more times per week How often do you get together with friends or relatives?: decline to answer How often do you attend sikhism or protestant services?: decline to answer Do you belong to any clubs or organized social groups?: no Panel score (0-1 are the most socially isolated patients): 2 What type of physical activity do you participate in: none Duration: < 15 minutes/day Frequency: daily Katerina/Restorationism: none Special katerina needs: No Seatbelt use: sometimes Helmet use: Yes Helmet use: always Drive intox or ride w/intox tilt tray driver: No Do you feel safe at home: Yes Do you feel safe in your relationship?: Yes Exam Const General: cooperative, healthy appearing, comfortable and no acute distress Orientation: alert, awake and oriented x3 HENMT Head: normal to inspection, normocephalic and atraumatic Ears: external ears normal, TM's normal bilaterally and EAC's normal General nose exam: external nose normal Face and sinus: normal facial exam Face images: 1. Diffuse mild discomfort without induration or pointing abscess. No erythema, warmth. No trismus. Skin is intact. Mouth: moist mucous membranes Teeth and gingiva: poor dentition Throat: posterior oropharynx normal Eyes General: appearance normal, both eyes and all related structures Conjunctivae: conjunctivae normal Neck Neck: normal visual inspection, full ROM, no meningeal signs, trachea midline, supple, lymphadenopathy left anterior cervical and tender (Lymphadenopathy) Resp Effort & Inspection: normal respiratory effort and able to speak in complete sentences Auscultation: clear to auscultation bilaterally Cardio Rate: regular rate Rhythm: regular rhythm Skin General skin exam: no rashes or lesions noted Neuro General: patient alert, patient awake, moves all extremities and no focal motor deficits Cognition: normal cognition Speech: speech normal Gait: normal gait Sensory Exam: no sensory deficits noted Psych Appearance: grossly normal Mental Status: mental status grossly normal Course Vital Signs Vital signs: Vital Signs Temperature 36.5 C 08/28/22 17:14 Pulse 77 08/28/22 17:14 Respiratory Rate 18 08/28/22 17:14 Blood Pressure 160/95 H 08/28/22 17:14 Pulse Oximetry 98 08/28/22 17:14 Temperature 36.5 C 08/28/22 17:14 Temperature Source Temporal Artery Scan 08/28/22 17:14 Pulse 77 08/28/22 17:14 Respiratory Rate 18 08/28/22 17:14 Respiratory Effort Normal, Non-Labored 08/28/22 17:19 Blood Pressure 160/95 H 08/28/22 17:14 Blood Pressure Position Sitting 08/28/22 17:14 Pulse Oximetry 98 08/28/22 17:14 Oxygen Delivery Method Room Air 08/28/22 17:14 Oxygen Flow Rate 0 08/28/22 17:14
[2022-08-28] MEDS: Clindamycin 150 MG CAP, 12 CAPS/BTL 450 MG PO (19:38)
[2022-08-28] MEDS: Ondansetron O.D.T. 4 MG TABEF, 3 TABS/BTL PO (19:39)
== END 2022-08-28 18:59 | disposition home or self-care (01) ==
PROVIDERS: Emergency Provider Physician Assistant; PCP Family Medicine
DX: K04.7 Periapical abscess without sinus (principal); E78.5 Hyperlipidemia, unspecified; E11.42 Type 2 diabetes mellitus with diabetic polyneuropathy; J44.9 Chronic obstructive pulmonary disease, unspecified; E11.65 Type 2 diabetes mellitus with hyperglycemia; I25.10 Atherosclerotic heart disease of native coronary artery without angina pectoris; F32.A Depression, unspecified; I10 Essential (primary) hypertension; F17.210 Nicotine dependence, cigarettes, uncomplicated; Z79.51 Long term (current) use of inhaled steroids; Z79.01 Long term (current) use of anticoagulants; Z79.84 Long term (current) use of oral hypoglycemic drugs
CPT/HCPCS: 99283; 99284

== ENCOUNTER 2023-01-07 16:51 | Emergency (ER) | payer MEDICARE, MEDICAID, SELFPAY ==
[2023-01-07 16:54] VITALS: BP 153/93; PULSE 72; RESP 16; TEMP 36.7; O2SAT 96
--- NOTE | 2023-01-07 18:34 | ED.GENADUL_ITS ---
Discharge Plan Disposition Patient Disposition: Home Condition: Improving Discharge Details Clinical Impression: Hyperglycemia due to type 2 diabetes mellitus, Anxiety about health Primary Care Provider: Luis E Narayan ED Provider: Tito Cabrera Home Meds and New Rx's Prescriptions: Continued budesonide-formoterol [Symbicort] 80-4.5 mcg/actuation HFA aerosol inhaler 2 puff Inhalation BID Qty: 3 11RF (DME) Aerochamber MV spacer See Dose Instructions .Route .MEDSUPPLY Qty: 1 0RF Dose Instruction: As directed Rx Instructions: As directed fluticasone propionate [Flonase Allergy Relief] 50 mcg/actuation spray,suspension 1 spray KUMAR BID PRN (Reason: nasal congestion) Qty: 9.9 3RF Rx Instructions: administer into each nostril loratadine [Claritin] 10 mg tablet 10 mg PO DAILY lorazepam 1 mg tablet 0.5 - 1 mg PO BID PRN (Reason: anxiety) Qty: 30 0RF Rx Instructions: 12/06/20 PT USES 1 MG AT HS AND 0.5 MG AT NOON nitroglycerin 0.4 mg tablet, sublingual 0.4 mg Sublingual PRN Qty: 25 2RF Rx Instructions: 1 TAB SL PRN melatonin 10 mg capsule 10 mg PO HS PRN Adult 50 Plus Probiotic 4 billion cell capsule 4,000 mmu cells PO DAILY Qty: 30 0RF Rx Instructions: administer with a meal pantoprazole [Protonix] 40 mg tablet,delayed release (DR/EC) 40 mg PO DAILY Qty: 30 12RF acetaminophen [Tylenol] 325 MG tablet 650 mg PO Q4H PRN CPAP (DME) lancets [OneTouch Delica Lancets] 1 EACH misc 1 ea Intradermal BID Qty: 200 Rx Instructions: DX: 250.00 (DME) OneTouch Ultra Test 1 EACH strip 1 strip Miscellaneous DAILY Qty: 100 Rx Instructions: DX: 250.00 oral meds amlodipine 5 mg tablet 5 mg PO DAILY Qty: 90 4RF Rx Instructions: 1 TAB DAILY clopidogrel [Plavix] 75 mg tablet 75 mg PO DAILY Qty: 90 4RF Metoprolol Succinate 25 MG TAB.ER.24H 25 mg PO DAILY Qty: 90 4RF Rx Instructions: 1 TAB DAILY simvastatin 10 mg tablet 10 mg PO DAILY Qty: 90 4RF Rx Instructions: 1 TAB DAILY losartan [Cozaar] 100 mg tablet 100 mg PO DAILY Qty: 90 4RF Rx Instructions: 1 TAB DAILY albuterol sulfate [Ventolin HFA] 90 mcg/actuation HFA aerosol inhaler 2 puff IH Q4H PRN (Reason: shortness of breath or wheezing) Qty: 8.5 11RF aspirin 81 mg Tablet,Delayed Release (Dr/Ec) 81 mg PO DAILY lamotrigine 100 mg tablet 100 mg PO QAM Patient Comments: TAKE ONE TABLET BY MOUTH TWICE A DAY buspirone 15 mg tablet 15 mg PO BID Patient Comments: TAKE ONE TABLET BY MOUTH TWICE A DAY trazodone 50 mg tablet 100 mg PO HS PRN Rx Instructions: 1-tab at HS PRN simethicone 125 mg tablet,chewable 125 mg PO TID PRN (Reason: abdominal distention) Qty: 30 0RF albuterol sulfate 2.5 mg/0.5 mL solution for nebulization 2.5 mg inhalation Q4H Qty: 30 0RF albuterol sulfate 2.5 mg /3 mL (0.083 %) solution for nebulization 2.5 mg IH Q4H PRN (Reason: shortness of breath or wheezing) Qty: 75 0RF (DME) nebulizers [Aeroneb Go Nebulizer] Misc See Rx Instructions .Route Qty: 1 0RF Rx Instructions: As directed insulin glargine 100 unit/mL Cartridge 5 unit SUBCUT BID metformin 500 mg tablet 1,000 mg PO BID Hold Instructions: Resume on 06/05/22. Please hold metformin for 48 hours (DME) blood-glucose meter [FreeStyle Lite Meter] Kit See Rx Instructions .ROUTE .MEDSUPPLY Qty: 1 0RF Rx Instructions: As directed (DME) FreeStyle Lite Strips Strip See Rx Instructions .ROUTE .MEDSUPPLY Qty: 10 0RF Rx Instructions: As directed Discontinued doxycycline hyclate 100 mg capsule 100 mg PO BID Qty: 14 0RF Rx Instructions: Avoid sun exposure. Take with meal. Take 1 pill every 12 hours x 7 days prednisone 10 mg tablet See Rx Instructions .ROUTE .COMPLEX Qty: 16 0RF Rx Instructions: Take 4 tabs daily for 1 day then 3 tabs daily for 2 days then 2 tabs daily for 2 days then 1 tab daily for 2 days Discharge Instructions Instructions: Anxiety (ED), Diabetic Hyperglycemia (ED) Additional Instructions: As discussed continue to take your medication as prescribed and reduce carbohydrate intake as you are able to. Return to the emergency department for any new or significant worsening of your symptoms or follow-up with your primary care provider if your sugars continue to remain elevated as you may need further medication adjustments. Referrals: Luis E Narayan [Primary Care Provider] - Medical Decision Making Patient presenting to the emergency department for chief complaint of elevated blood sugar. Patient states that she has had an [place]rain[place] muffin and cereal this morning and also ate late yesterday evening. Then today she has felt a little bit more tired and checked her sugar which was in the 300s. Patient denies all other symptoms but does state that she has not been drinking much water today as well. Patient has anxiety, COPD, diabetes, hypertension fatty liver disease and bipolar. Physical exam is unremarkable and patient is stable with no signs of abnormality. Of note on initial check-in they repeated sugar which was now in the 270s. I do not feel that patient has any signs of diabetic emergency at this time. Due to this we did discuss large work-up versus oral hydration and rechecking the sugar in 1 hour. Shared decision-making was utilized and patient agreed to have sugar checked in 1 hour after oral hydration and we will reassess need of labs at that time. Reassessed patient after oral hydration with sugar is now 176 and patient does states she is feeling significantly better. We will discharge patient after discussion of dietary habits along with her Lantus use. Patient will follow-up with primary care provider for reassessment or return for new or worsening symptoms. After discussion of diagnosis and plan of care patient has no further needs, questions, or concerns and states clear understanding to return to the emergency department for any worsening symptoms. This documentation was generated using Playroomation system, please disregard any oddities of phrase or misspellings. Lab Data Lab results reviewed: Yes I reviewed the patient's lab results. HPI General Mode of arrival: ambulatory . Date/Time Provider Initiated Documentation: 01/07/23 16:54 . Limitations to Documentation: no limitations . Information obtained by: patient . History of Present Illness 62 year old F presents to the emergency department with the chief complaint of Elevated blood sugar, described as moderate and similar to prior episodes, Patient started experiencing this day(s) (2) No relieving factors improve symptom(s), Eating worsens symptoms (Increased carbs this morning) . Patient notes no other symptoms.. Related Data Home Medications Medication Instructions Recorded Confirmed Cpap 10/24/12 01/06/22 acetaminophen 325 mg tablet 650 mg PO Q4H PRN 10/24/12 01/07/23 (Tylenol) lancets 33 gauge (OneTouch Delica #200 ea 12/15/12 03/31/22 Lancets) blood sugar diagnostic (GipisTouch #100 strips 01/24/14 03/31/22 Ultra Test strips) budesonide-formoterol HFA 80 2 puff inhalation BID #3 grams 05/01/18 01/07/23 mcg-4.5 mcg/actuation aerosol inhaler (Symbicort) inhalational spacing device #1 ea 05/01/18 03/31/22 (Aerochamber MV spacer) nitroglycerin 0.4 mg sublingual 0.4 mg sublingual PRN #25 tab-caps 05/04/18 01/07/23 tablet amlodipine 5 mg tablet 5 mg PO DAILY #90 tab-caps 07/27/18 01/07/23 clopidogrel 75 mg tablet (Plavix) 75 mg PO DAILY #90 tabs 07/27/18 01/07/23 simvastatin 10 mg tablet 10 mg PO DAILY #90 tab-caps 07/31/18 01/07/23 losartan 100 mg tablet (Cozaar) 100 mg PO DAILY #90 tab-caps 12/27/18 01/07/23 fluticasone propionate 50 1 spray intranasal BID PRN nasal 02/03/19 01/07/23 mcg/actuation nasal congestion #9.9 grams spray,suspension (Flonase Allergy Relief) loratadine 10 mg tablet (Claritin) 10 mg PO DAILY 02/03/19 01/07/23 lorazepam 1 mg tablet 0.5 - 1 mg PO BID PRN anxiety #30 02/19/19 01/07/23 tabs albuterol sulfate 90 mcg/actuation 2 puff inhalation Q4H PRN 08/29/19 08/28/22 aerosol inhaler (Ventolin HFA) shortness of breath or wheezing #8.5 grams metformin 500 mg tablet 1,000 mg PO BID 09/12/19 01/07/23 aspirin 81 mg tablet,delayed 81 mg PO DAILY 08/17/20 01/07/23 release buspirone 15 mg tablet 15 mg PO BID 08/17/20 01/07/23 lamotrigine 100 mg tablet 100 mg PO QAM 08/17/20 01/07/23 trazodone 50 mg tablet 100 mg PO HS PRN 08/17/20 01/07/23 blood sugar diagnostic (FreeStyle #10 ea 12/06/20 06/03/22 Lite Strips) blood-glucose meter (FreeStyle #1 ea 12/06/20 03/31/22 Lite Meter kit) melatonin 10 mg capsule 10 mg PO HS PRN 02/23/21 01/07/23 lactobacillus combination no.9 4 4,000 mmu cells PO DAILY #30 caps 10/13/21 08/28/22 billion cell capsule (Adult 50 Plus Probiotic) simethicone 125 mg chewable tablet 125 mg PO TID PRN abdominal 11/11/21 01/07/23 distention #30 tabs pantoprazole 40 mg tablet,delayed 40 mg PO DAILY #30 tabs 11/25/21 01/07/23 release (Protonix) albuterol sulfate 2.5 mg/0.5 mL 2.5 mg (0.5 mL) inhalation Q4H #30 03/31/22 06/03/22 solution for nebulization ea albuterol sulfate 2.5 mg/3 mL 2.5 mg (3 mL) inhalation Q4H PRN 04/03/22 01/07/23 (0.083 %) solution for nebulization shortness of breath or wheezing #75 mL nebulizers (Aeroneb Go Nebulizer) #1 ea 04/03/22 insulin glargine 100 unit/mL 5 unit subcut BID 01/07/23 01/07/23 subcutaneous cartridge Previous Rx's Medication Instructions Recorded budesonide-formoterol HFA 80 2 puff inhalation BID #3 grams 05/01/18 mcg-4.5 mcg/actuation aerosol inhaler (Symbicort) inhalational spacing device #1 ea 05/01/18 (Aerochamber MV spacer) nitroglycerin 0.4 mg sublingual 0.4 mg sublingual PRN #25 tab-caps 05/04/18 tablet amlodipine 5 mg tablet 5 mg PO DAILY #90 tab-caps 07/27/18 clopidogrel 75 mg tablet (Plavix) 75 mg PO DAILY #90 tabs 07/27/18 simvastatin 10 mg tablet 10 mg PO DAILY #90 tab-caps 07/31/18 losartan 100 mg tablet (Cozaar) 100 mg PO DAILY #90 tab-caps 12/27/18 fluticasone propionate 50 1 spray intranasal BID PRN nasal 02/03/19 mcg/actuation nasal congestion #9.9 grams spray,suspension (Flonase Allergy Relief) lorazepam 1 mg tablet 0.5 - 1 mg PO BID PRN anxiety #30 02/19/19 tabs albuterol sulfate 90 mcg/actuation 2 puff inhalation Q4H PRN 08/29/19 aerosol inhaler (Ventolin HFA) shortness of breath or wheezing #8.5 grams blood sugar diagnostic (FreeStyle #10 ea 12/06/20 Lite Strips) blood-glucose meter (FreeStyle #1 ea 12/06/20 Lite Meter kit) lactobacillus combination no.9 4 4,000 mmu cells PO DAILY #30 caps 10/13/21 billion cell capsule (Adult 50 Plus Probiotic) simethicone 125 mg chewable tablet 125 mg PO TID PRN abdominal 11/11/21 distention #30 tabs pantoprazole 40 mg tablet,delayed 40 mg PO DAILY #30 tabs 11/25/21 release (Protonix) albuterol sulfate 2.5 mg/0.5 mL 2.5 mg (0.5 mL) inhalation Q4H #30 03/31/22 solution for nebulization ea albuterol sulfate 2.5 mg/3 mL 2.5 mg (3 mL) inhalation Q4H PRN 04/03/22 (0.083 %) solution for nebulization shortness of breath or wheezing #75 mL nebulizers (Aeroneb Go Nebulizer) #1 ea 04/03/22 Allergies Allergy/AdvReac Type Severity Reaction Status Date / Time azithromycin AdvReac Mild Nausea Verified 01/07/23 17:03 codeine AdvReac Mild Nausea Verified 01/07/23 17:03 erythromycin base AdvReac Mild Nausea Verified 01/07/23 17:03 ibuprofen AdvReac Mild Nausea Verified 01/07/23 17:03 lisinopril AdvReac Mild cough Verified 01/07/23 17:03 NSAIDS (Non-Steroidal AdvReac Mild Nausea Verified 01/07/23 17:03 Anti-Inflamma General Stated Complaint: GenMedical MONICA: 3 Review of Systems Constitutional Constitutional: Denies chills, Denies fever(s), Denies headache(s) and Reports malaise ENT Ears, Nose, Mouth, and Throat: Denies headache(s) Cardiovascular Cardiovascular: Denies chest pain and Denies dyspnea Respiratory Respiratory: Denies cough and Denies dyspnea Gastrointestinal Gastrointestinal: Denies abdominal pain, Denies diarrhea, Denies nausea and Denies vomiting Genitourinary Genitourinary: Denies difficulty voiding and Denies dysuria Integumentary/Breasts Skin/Breast: Denies rash Neurologic Neurologic: Denies headache(s) Endocrine Endocrine: Reports as per HPI and Denies polyuria PFSH All Active Problems Hyperglycemia due to type 2 diabetes mellitus (Acute) Anxiety about health (Acute) Liver cirrhosis secondary to nonalcoholic steatohepatitis ([place]) (Acute) Chronic diarrhea (Acute) Epigastric pain (Acute) Hyperplastic colon polyp (Acute) ASCVD (arteriosclerotic cardiovascular disease) (Acute) 10/15 anterolat NSTE NM; stent x 4; 10/15 echo-EF 55%; inf.wall hypokinesis; mild Anxiety (Acute) after NM decreased memory/concentration--[facility] neurology COPD (chronic obstructive pulmonary disease) (Acute) continues to smoke Depressive disorder (Acute) fatigue Diabetic peripheral neuropathy associated with type 2 diabetes mellitus (Acute 03/03/16) Essential hypertension (Acute 05/03/13) Urinary, incontinence, stress female (Acute 09/13/13) Heart murmur (Acute 09/13/13) 10/21 echo LVEF 70% with LVH, aoritc valve thickened but opens well (no signif aortic stenosis) [facility] Echo 02/05/19 - LVH (mild-mod), EeF= 60-65%, systolic function normal, ascending aorta mildly dilated Hyperlipidemia (Acute 12/18/12) Morbid obesity (Acute) Numbness and tingling in right hand (Acute 03/03/16) Obstructive sleep apnea syndrome (Acute 03/27/10) [facility] sleep lab Pap smear abnormality of cervix with LGSIL (Acute) LGSIL +HPV; BX darcie I Postmenopausal bleeding (Acute 09/21/11) atypical endometrial hyperplasia Sciatica (Acute 07/04/13) left sciatica, MRI [facility] 07/22/13: L3-4 disc extrusion Skin tags, multiple acquired (Acute 02/15/16) Smoker (Acute) Type II diabetes mellitus, uncontrolled (Acute) Asthma (Chronic) Status post arthroscopy of left knee (Acute) History of section (Acute) Family history of malignant neoplasm of breast (Acute 09/11/14) Fever (Acute) She is febrile and has both abdominal and chest symptoms. We will send to the emergency room. Upper respiratory infection (Acute) Hyperglycemia (Acute) Acute bronchospasm (Acute) Seasonal allergies (Acute) History of COPD (Acute) Fatty liver (Acute) Diverticulosis (Acute) Constipation (Acute) Incontinence (Acute) Pedal edema (Acute) Varicose veins of lower extremity (Acute) Bipolar disorder (Chronic) Compliant with therapeutic regimen (Acute) Caren, oral (Acute) Allergic rhinitis (Acute) Medical History Anxiety Atherosclerotic cardiovascular disease COPD (chronic obstructive pulmonary disease) Depression Heart murmur History of renal carcinoma Hx of malignant neoplasm of eye Hyperlipidemia Hypertension Morbid obesity with BMI of 40.0-44.9, adult Plantar fasciitis of left foot Sleep apnea Stress incontinence in female Surgical History Arthroplasty of knee athroscopy not arthroplasty. Cervical Procedure BX DARCIE I section (~1981) H/O esophagogastroduodenoscopy (~03/10/21) S/P colonoscopy (~03/10/21) Stent placement X 4 TO LCX-1995 Family History Mother Personal history of malignant neoplasm UTERINE CA; HYSTERECTOMY AGE 75 Uterine cancer Hysterectomy at 76 Father Heart disease Brother Diabetes Cancer Brother No problems noted. Brother No problems noted. Social History Smoking/Tobacco Use Status: Current every day Tobacco Type: cigarettes Smoking packs per day: 1 Smoking cigarettes per day: 20.0 Smoking risk assessment performed?: Yes Alcohol Intake: former Drug use: Never Substance use type: does not use Household members: significant other Housing: house Communication Needs: None Do you need help understanding health information?: Rarely Pets and animals: Yes Pets and animals: dog(s) Do you think of yourself as: straight/heterosexual Current gender identity: female What is your relationship status?: living with partner How often do you talk on the phone with friends or family?: three or more times per week How often do you get together with friends or relatives?: decline to answer How often do you attend orthodoxy or mosque services?: decline to answer Do you belong to any clubs or organized social groups?: no Panel score (0-1 are the most socially isolated patients): 2 What type of physical activity do you participate in: none Duration: < 15 minutes/day Frequency: daily Katerina/Orthodoxy: none Special katerina needs: No Seatbelt use: sometimes Helmet use: Yes Helmet use: always Drive intox or ride w/intox transportation driver: No Do you feel safe at home: Yes Do you feel safe in your relationship?: Yes Exam Const General: cooperative, no acute distress and not ill appearing Orientation: alert, awake and oriented x3 HENMT Mouth: moist mucous membranes Resp Effort & Inspection: normal respiratory effort, able to speak in complete sen tences and no respiratory distress Auscultation: clear to auscultation bilaterally Cardio Rate: regular rate Rhythm: regular rhythm Heart Sounds: S1 normal and S2 normal Skin General skin exam: no rashes or lesions noted Neuro General: patient alert, patient awake, patient oriented x3, moves all extremities and no focal motor deficits Sensory Exam: no sensory deficits noted Course Vital Signs Vital signs: Vital Signs Temperature 36.7 C 01/07/23 16:54 Pulse 72 01/07/23 16:54 Respiratory Rate 16 01/07/23 16:54 Blood Pressure 153/93 H 01/07/23 16:54 Pulse Oximetry 96 01/07/23 16:54 Temperature 36.7 C 01/07/23 16:54 Temperature Source Skin 01/07/23 16:54 Pulse 72 01/07/23 16:54 Respiratory Rate 16 01/07/23 16:54 Blood Pressure 153/93 H 01/07/23 16:54 Pulse Oximetry 96 01/07/23 16:54 Oxygen Delivery Method Room Air 01/07/23 16:54 Oxygen Flow Rate 0 01/07/23 16:54
[2023-01-07 18:47] VITALS: PULSE 75; O2SAT 98
[2023-01-07 18:48] VITALS: RESP 18
== END 2023-01-07 18:49 | disposition home or self-care (01) ==
PROVIDERS: Emergency Provider Nurse Practitioner Family; PCP Family Medicine
DX: E11.65 Type 2 diabetes mellitus with hyperglycemia (principal)
CPT/HCPCS: 36416; 82962; 99282; 99283

== ENCOUNTER 2023-02-03 16:49 | Emergency (ER) | payer MEDICARE, MEDICAID, SELFPAY ==
[2023-02-03 17:00] VITALS: BP 165/87; PULSE 83; RESP 18; TEMP 36.8; O2SAT 99
--- NOTE | 2023-02-03 18:30 | DI.RAD_ITS ---
Exam(s) XR FOOT RT COMPLETE EXAM: XR FOOT RT COMPLETE CLINICAL HISTORY: pain, no trauma. TECHNIQUE: 2D digital imaging was performed. COMPARISON: No exams were available for comparison FINDINGS: 3 views There is dorsal soft tissue swelling. There is no evidence of obvious acute fracture nor diastasis of the Lisfranc joint. No osseous lesio ns nor erosions. No radiopaque foreign body. On the lateral view there is a small bony excrescence off the dorsal aspect of the-1st tarsometatarsal joint. May be degenerative. Great toe metatarsopha langeal joint another articulations appear unremarkable. Moderate size inferior calcaneal spur is no froilan. Prominent enthesophyte noted at the Achilles tendon insertion on the posterior aspect of the ca lcaneus. IMPRESSION: Soft tissue swelling. No fracture evident. Findings as above. DATA REPOSITORY: RADIATION DOSE DELIVERED:
--- NOTE | 2023-02-03 18:30 | DI.RAD_ITS ---
Exam(s) XR KNEE RT 3V AP,LAT,PILO EXAM: XR KNEE RT 3V AP,LAT,PILO CLINICAL HISTORY: pain. no trauma, chronic. TECHNIQUE: 2D digital imaging was performed. COMPARISON: No exams were available for comparison FINDINGS: No evidence of acute fracture but there appears to be a slight increased amount of joint fluid. Mini mal degenerative changes. No osseous lesions. No radiopaque foreign body. IMPRESSION: No acute osseous findings in the knee. Mild degenerative changes. DATA REPOSITORY: RADIATION DOSE DELIVERED:
--- NOTE | 2023-02-03 18:30 | DI.RAD_ITS ---
Exam(s) XR TOE RT GREAT EXAM: XR TOE RT GREAT CLINICAL HISTORY: pain redness,. TECHNIQUE: 2D digital imaging was performed. COMPARISON: No exams were available for comparison FINDINGS: 3 views There is no evidence of fracture nor dislocation nor hallux valgus. Bone density normal. No osseous lesions nor erosions. No obvious soft tissue masses. No soft tissue calcifications.. No radiopaqu e foreign body. IMPRESSION: No significant radiograph findings in the great toe. DATA REPOSITORY: RADIATION DOSE DELIVERED:
--- NOTE | 2023-02-03 18:33 | W.ED.GENAD ---
Discharge Plan Disposition Patient Disposition: Home Condition: Stable Discharge Details Clinical Impression: Gout Primary Care Provider: Luis E Narayan ED Provider: Angi Sullivan Home Meds and New Rx's Prescriptions: New prednisone 20 mg Tablet 40 mg PO DAILY Qty: 8 0RF Continued budesonide-formoterol [Symbicort] 80-4.5 mcg/actuation HFA aerosol inhaler 2 puff Inhalation BID Qty: 3 11RF (DME) Aerochamber MV spacer See Dose Instructions .Route .MEDSUPPLY Qty: 1 0RF Dose Instruction: As directed Rx Instructions: As directed fluticasone propionate [Flonase Allergy Relief] 50 mcg/actuation spray,suspension 1 spray KUMAR BID PRN (Reason: nasal congestion) Qty: 9.9 3RF Rx Instructions: administer into each nostril loratadine [Claritin] 10 mg tablet 10 mg PO DAILY lorazepam 1 mg tablet 0.5 - 1 mg PO BID PRN (Reason: anxiety) Qty: 30 0RF Rx Instructions: 12/06/20 PT USES 1 MG AT HS AND 0.5 MG AT NOON nitroglycerin 0.4 mg tablet, sublingual 0.4 mg Sublingual PRN Qty: 25 2RF Rx Instructions: 1 TAB SL PRN melatonin 10 mg capsule 10 mg PO HS PRN Adult 50 Plus Probiotic 4 billion cell capsule 4,000 mmu cells PO DAILY Qty: 30 0RF Rx Instructions: administer with a meal pantoprazole [Protonix] 40 mg tablet,delayed release (DR/EC) 40 mg PO DAILY Qty: 30 12RF acetaminophen [Tylenol] 325 MG tablet 650 mg PO Q4H PRN CPAP (DME) lancets [OneTouch Delica Lancets] 1 EACH misc 1 ea Intradermal BID Qty: 200 Rx Instructions: DX: 250.00 (DME) OneTouch Ultra Test 1 EACH strip 1 strip Miscellaneous DAILY Qty: 100 Rx Instructions: DX: 250.00 oral meds amlodipine 5 mg tablet 5 mg PO DAILY Qty: 90 4RF Rx Instructions: 1 TAB DAILY clopidogrel [Plavix] 75 mg tablet 75 mg PO DAILY Qty: 90 4RF Metoprolol Succinate 25 MG TAB.ER.24H 25 mg PO DAILY Qty: 90 4RF Rx Instructions: 1 TAB DAILY simvastatin 10 mg tablet 10 mg PO DAILY Qty: 90 4RF Rx Instructions: 1 TAB DAILY losartan [Cozaar] 100 mg tablet 100 mg PO DAILY Qty: 90 4RF Rx Instructions: 1 TAB DAILY albuterol sulfate [Ventolin HFA] 90 mcg/actuation HFA aerosol inhaler 2 puff IH Q4H PRN (Reason: shortness of breath or wheezing) Qty: 8.5 11RF aspirin 81 mg Tablet,Delayed Release (Dr/Ec) 81 mg PO DAILY lamotrigine 100 mg tablet 100 mg PO QAM Patient Comments: TAKE ONE TABLET BY MOUTH TWICE A DAY buspirone 15 mg tablet 15 mg PO BID Patient Comments: TAKE ONE TABLET BY MOUTH TWICE A DAY trazodone 50 mg tablet 100 mg PO HS PRN Rx Instructions: 1-tab at HS PRN simethicone 125 mg tablet,chewable 125 mg PO TID PRN (Reason: abdominal distention) Qty: 30 0RF albuterol sulfate 2.5 mg/0.5 mL solution for nebulization 2.5 mg inhalation Q4H Qty: 30 0RF albuterol sulfate 2.5 mg /3 mL (0.083 %) solution for nebulization 2.5 mg IH Q4H PRN (Reason: shortness of breath or wheezing) Qty: 75 0RF (DME) nebulizers [Aeroneb Go Nebulizer] Misc See Rx Instructions .Route Qty: 1 0RF Rx Instructions: As directed insulin glargine 100 unit/mL Cartridge 5 unit SUBCUT BID metformin 500 mg tablet 1,000 mg PO BID Hold Instructions: Resume on 06/05/22. Please hold metformin for 48 hours (DME) blood-glucose meter [FreeStyle Lite Meter] Kit See Rx Instructions .ROUTE .MEDSUPPLY Qty: 1 0RF Rx Instructions: As directed (DME) FreeStyle Lite Strips Strip See Rx Instructions .ROUTE .MEDSUPPLY Qty: 10 0RF Rx Instructions: As directed Discharge Instructions Instructions: Gout (ED) Additional Instructions: There are some things that might help: ?If you are overweight, losing weight can help relieve gout. ?It's not clear that following a specific diet plan will help with gout symptoms. But eating a balanced diet can help improve your overall health. Try to eat plenty of fruits, vegetables, whole grains, and low-fat dairy products. It's also important to drink plenty of water, and try not to get dehydrated. ?Limit sugary drinks and alcohol. These can make gout flares worse. ?Some people feel better when they limit foods that are high in purines. (Purines are natural substances found in many foods.) You can ask your doctor if avoiding high-purine foods might help you. But other things, like taking your medicines and avoiding alcohol, are more likely to help with gout symptoms. ?Some people with gout also have other health problems, such as heart disease, high blood pressure, kidney disease, or obesity. If you have any of these issues, it's important to work with your doctor to manage them. This can help improve your overall health and might also help with your gout. ?When you have a gout flare, you might feel better if you also rest or ice your joint. Monitor for and report worsening redness, fever, or concern for infection. Referrals: Luis E Narayan [Primary Care Provider] - Medical Decision Making Patient presents with sudden onset of right foot great toe pain with no reports of trauma pain is reported as severe. Dizziness and syncope symptoms and physical exam are most consistent with gout. Will give 30 mg IM Toradol x-ray a of the foot and great toe. She also is reporting chronic right knee pain and reports possibly feeling a pop yesterday states that she is waiting to get into orthopedics. Imaging has been reviewed and she will be given prednisone 40 mg to be taken daily for 5 days for suspected gout. She has been given instructions to monitor for fever increased erythema and pain or concern for cellulitis/infection. Medical Records Medical records reviewed: Yes I reviewed the patient's medical records. HPI General Mode of arrival: wheelchair. Date/Time Provider Initiated Documentation: 02/03/23 16:58. Limitations to Documentation: no limitations. Information obtained by: patient. HPI Narrative: Presents for evaluation of right foot pain and erythema that started today. She took Tylenol this morning reports pain has been worsening over of the day. She also is reporting chronic right knee pain. There was no reports of trauma. She states she is waiting to get in with orthopedics to have her knee evaluated. Denies any history of gout she has had no fever no chills pain in her foot is not a proportion to exam. Related Data Home Medications Medication Instructions Recorded Confirmed Cpap 10/24/12 01/06/22 acetaminophen 325 mg tablet 650 mg PO Q4H PRN 10/24/12 02/03/23 (Tylenol) lancets [facility] ea 12/15/12 03/31/22 Lancets) blood sugar diagnostic ([facility] strips 01/24/14 03/31/22 Ultra Test strips) budesonide-formoterol HFA 80 2 puff inhalation BID #3 grams 05/01/18 02/03/23 mcg-4.5 mcg/actuation aerosol inhaler (Symbicort) inhalational spacing device #1 ea 05/01/18 03/31/22 (Aerochamber MV spacer) nitroglycerin 0.4 mg sublingual 0.4 mg sublingual PRN #25 tab-caps 05/04/18 02/03/23 tablet amlodipine 5 mg tablet 5 mg PO DAILY #90 tab-caps 07/27/18 02/03/23 clopidogrel 75 mg tablet (Plavix) 75 mg PO DAILY #90 tabs 07/27/18 02/03/23 simvastatin 10 mg tablet 10 mg PO DAILY #90 tab-caps 07/31/18 02/03/23 losartan 100 mg tablet (Cozaar) 100 mg PO DAILY #90 tab-caps 12/27/18 02/03/23 fluticasone propionate 50 1 spray intranasal BID PRN nasal 02/03/19 02/03/23 mcg/actuation nasal congestion #9.9 grams spray,suspension (Flonase Allergy Relief) loratadine 10 mg tablet (Claritin) 10 mg PO DAILY 02/03/19 02/03/23 lorazepam 1 mg tablet 0.5 - 1 mg PO BID PRN anxiety #30 02/19/19 02/03/23 tabs albuterol sulfate 90 mcg/actuation 2 puff inhalation Q4H PRN 08/29/19 02/03/23 aerosol inhaler (Ventolin HFA) shortness of breath or wheezing #8.5 grams metformin 500 mg tablet 1,000 mg PO BID 09/12/19 02/03/23 aspirin 81 mg tablet,delayed 81 mg PO DAILY 08/17/20 02/03/23 release buspirone 15 mg tablet 15 mg PO BID 08/17/20 02/03/23 lamotrigine 100 mg tablet 100 mg PO QAM 08/17/20 02/03/23 trazodone 50 mg tablet 100 mg PO HS PRN 08/17/20 02/03/23 blood sugar diagnostic (FreeStyle #10 ea 12/06/20 06/03/22 Lite Strips) blood-glucose meter (FreeStyle #1 ea 12/06/20 03/31/22 Lite Meter kit) melatonin 10 mg capsule 10 mg PO HS PRN 02/23/21 02/03/23 lactobacillus combination no.9 4 4,000 mmu cells PO DAILY #30 caps 10/13/21 08/28/22 billion cell capsule (Adult 50 Plus Probiotic) simethicone 125 mg chewable tablet 125 mg PO TID PRN abdominal 11/11/21 02/03/23 distention #30 tabs pantoprazole 40 mg tablet,delayed 40 mg PO DAILY #30 tabs 11/25/21 02/03/23 release (Protonix) albuterol sulfate 2.5 mg/0.5 mL 2.5 mg (0.5 mL) inhalation Q4H #30 03/31/22 02/03/23 solution for nebulization ea albuterol sulfate 2.5 mg/3 mL 2.5 mg (3 mL) inhalation Q4H PRN 04/03/22 02/03/23 (0.083 %) solution for nebulization shortness of breath or wheezing #75 mL nebulizers (Aeroneb Go Nebulizer) #1 ea 04/03/22 insulin glargine 100 unit/mL 5 unit subcut BID 01/07/23 02/03/23 subcutaneous cartridge prednisone 20 mg tablet 40 mg PO DAILY #8 tabs 02/03/23 Previous Rx's Medication Instructions Recorded budesonide-formoterol HFA 80 2 puff inhalation BID #3 grams 05/01/18 mcg-4.5 mcg/actuation aerosol inhaler (Symbicort) inhalational spacing device #1 ea 05/01/18 (Aerochamber MV spacer) nitroglycerin 0.4 mg sublingual 0.4 mg sublingual PRN #25 tab-caps 05/04/18 tablet amlodipine 5 mg tablet 5 mg PO DAILY #90 tab-caps 07/27/18 clopidogrel 75 mg tablet (Plavix) 75 mg PO DAILY #90 tabs 07/27/18 simvastatin 10 mg tablet 10 mg PO DAILY #90 tab-caps 07/31/18 losartan 100 mg tablet (Cozaar) 100 mg PO DAILY #90 tab-caps 12/27/18 fluticasone propionate 50 1 spray intranasal BID PRN nasal 02/03/19 mcg/actuation nasal congestion #9.9 grams spray,suspension (Flonase Allergy Relief) lorazepam 1 mg tablet 0.5 - 1 mg PO BID PRN anxiety #30 02/19/19 tabs albuterol sulfate 90 mcg/actuation 2 puff inhalation Q4H PRN 08/29/19 aerosol inhaler (Ventolin HFA) shortness of breath or wheezing #8.5 grams blood sugar diagnostic (FreeStyle #10 ea 12/06/20 Lite Strips) blood-glucose meter (FreeStyle #1 ea 12/06/20 Lite Meter kit) lactobacillus combination no.9 4 4,000 mmu cells PO DAILY #30 caps 10/13/21 billion cell capsule (Adult 50 Plus Probiotic) simethicone 125 mg chewable tablet 125 mg PO TID PRN abdominal 11/11/21 distention #30 tabs pantoprazole 40 mg tablet,delayed 40 mg PO DAILY #30 tabs 11/25/21 release (Protonix) albuterol sulfate 2.5 mg/0.5 mL 2.5 mg (0.5 mL) inhalation Q4H #30 03/31/22 solution for nebulization ea albuterol sulfate 2.5 mg/3 mL 2.5 mg (3 mL) inhalation Q4H PRN 04/03/22 (0.083 %) solution for nebulization shortness of breath or wheezing #75 mL nebulizers (Aeroneb Go Nebulizer) #1 ea 04/03/22 prednisone 20 mg tablet 40 mg PO DAILY #8 tabs 02/03/23 Allergies Allergy/AdvReac Type Severity Reaction Status Date / Time azithromycin AdvReac Mild Nausea Verified 02/03/23 18:07 codeine AdvReac Mild Nausea Verified 02/03/23 18:07 erythromycin base AdvReac Mild Nausea Verified 02/03/23 18:07 ibuprofen AdvReac Mild Nausea Verified 02/03/23 18:07 lisinopril AdvReac Mild cough Verified 02/03/23 18:07 NSAIDS (Non-Steroidal AdvReac Mild Nausea Verified 02/03/23 18:07 Anti-Inflamma General Stated Complaint: Orthopedic MONICA: 3 Review of Systems All systems reviewed & are unremarkable except as noted in HPI and below PFSH All Active Problems (Updated 02/03/23 @ 19:31 by Angi Sullivan NP) Hyperglycemia due to type 2 diabetes mellitus (Acute) Anxiety about health (Acute) Gout (Chronic) Liver cirrhosis secondary to nonalcoholic steatohepatitis ([place]) (Acute) Chronic diarrhea (Acute) Epigastric pain (Acute) Hyperplastic colon polyp (Acute) ASCVD (arteriosclerotic cardiovascular disease) (Acute) 10/[address]; stent x 4; 10/15 echo-EF 55%; inf.wall hypokinesis; mild Anxiety (Acute) after CT decreased memory/concentration--[facility] neurology COPD (chronic obstructive pulmonary disease) (Acute) continues to smoke Depressive disorder (Acute) fatigue Diabetic peripheral neuropathy associated with type 2 diabetes mellitus (Acute 03/03/16) Essential hypertension (Acute 05/03/13) Urinary, incontinence, stress female (Acute 09/13/13) Heart murmur (Acute 09/13/13) 10/21 echo LVEF 70% with LVH, aoritc valve thickened but opens well (no signif aortic stenosis) [facility] Echo 02/05/19 - LVH (mild-mod), EeF= 60-65%, systolic function normal, ascending aorta mildly dilated Hyperlipidemia (Acute 12/18/12) Morbid obesity (Acute) Numbness and tingling in right hand (Acute 03/03/16) Obstructive sleep apnea syndrome (Acute 03/27/10) [facility] sleep lab Pap smear abnormality of cervix with LGSIL (Acute) LGSIL +HPV; BX darcie I Postmenopausal bleeding (Acute 09/21/11) atypical endometrial hyperplasia Sciatica (Acute 07/04/13) left sciatica, MRI [facility] 07/22/13: L3-4 disc extrusion Skin tags, multiple acquired (Acute 02/15/16) Smoker (Acute) Type II diabetes mellitus, uncontrolled (Acute) Asthma (Chronic) Status post arthroscopy of left knee (Acute) History of section (Acute) Family history of malignant neoplasm of breast (Acute 09/11/14) Fever (Acute) She is febrile and has both abdominal and chest symptoms. We will send to the emergency room. Upper respiratory infection (Acute) Hyperglycemia (Acute) Acute bronchospasm (Acute) Seasonal allergies (Acute) History of COPD (Acute) Fatty liver (Acute) Diverticulosis (Acute) Constipation (Acute) Incontinence (Acute) Pedal edema (Acute) Varicose veins of lower extremity (Acute) Bipolar disorder (Chronic) Compliant with therapeutic regimen (Acute) Acren, oral (Acute) Allergic rhinitis (Acute) Medical History Anxiety Atherosclerotic cardiovascular disease COPD (chronic obstructive pulmonary disease) Depression Heart murmur History of renal carcinoma Hx of malignant neoplasm of eye Hyperlipidemia Hypertension Morbid obesity with BMI of 40.0-44.9, adult Plantar fasciitis of left foot Sleep apnea Stress incontinence in female Surgical History Arthroplasty of knee athroscopy not arthroplasty. Cervical Procedure BX DARCIE I section (~1981) H/O esophagogastroduodenoscopy (~03/10/21) S/P colonoscopy (~03/10/21) Stent placement X 4 TO LCX-1995 Family History Mother Personal history of malignant neoplasm UTERINE CA; HYSTERECTOMY AGE 76 Uterine cancer Hysterectomy at 76 Father Heart disease Brother Diabetes Cancer Brother No problems noted. Brother No problems noted. Social History Smoking/Tobacco Use Status: Current every day Tobacco Type: cigarettes Smoking packs per day: 1 Smoking cigarettes per day: 20.0 Smoking risk assessment performed?: Yes Alcohol Intake: former Drug use: Never Substance use type: does not use Household members: significant other Housing: house Communication Needs: None Do you need help understanding health information?: Rarely Pets and animals: Yes Pets and animals: dog(s) Do you think of yourself as: straight/heterosexual Current gender identity: female What is your relationship status?: living with partner How often do you talk on the phone with friends or family?: three or more times per week How often do you get together with friends or relatives?: decline to answer How often do you attend moravian or christian services?: decline to answer Do you belong to any clubs or organized social groups?: no Panel score (0-1 are the most socially isolated patients): 2 What type of physical activity do you participate in: none Duration: < 15 minutes/day Frequency: daily Katerina/Muslim: none Special katerina needs: No Seatbelt use: sometimes Helmet use: Yes Helmet use: always Drive intox or ride w/intox party bus driver: No Do you feel safe at home: Yes Do you feel safe in your relationship?: Yes Exam Const General: ill appearing (Older than stated age face is flush) chronically Nutritional Appearance: obese Orientation: alert, awake and oriented x3 HENMT Head: normal to inspection, normocephalic and atraumatic Resp Effort & Inspection: normal respiratory effort Cardio Rate: regular rate Rhythm: regular rhythm GI Inspection: normal to inspection and obesity Skin Lesions: no lesions Rashes: rashes noted (Erythema to base of right great toe) Extrem Right lower extremity: knee Details: normal to inspection and tenderness Location: of the medial joint line and foot Details: tenderness Location: of the dorsal foot and of the great toe Location: at the MTP joint and edema Course Vital Signs Vital signs: Vital Signs Temperature 36.8 C 02/03/23 17:00 Pulse 83 02/03/23 17:00 Respiratory Rate 18 02/03/23 17:00 Blood Pressure 165/87 H 02/03/23 17:00 Pulse Oximetry 99 02/03/23 17:00 Temperature 36.8 C 02/03/23 17:00 Temperature Source Oral 02/03/23 17:00 Pulse 83 02/03/23 17:00 Respiratory Rate 18 02/03/23 17:00 Respiratory Effort Normal, Non-Labored 02/03/23 17:06 Blood Pressure 165/87 H 02/03/23 17:00 Blood Pressure Position Sitting 02/03/23 17:00 Pulse Oximetry 99 02/03/23 17:00 Oxygen Delivery Method Room Air 02/03/23 17:00 Oxygen Flow Rate 0 02/03/23 17:00
[2023-02-03] MEDS: Ketorolac 30 MG/ML VIAL IM (18:57)
[2023-02-03] MEDS: Acetaminophen 500 MG TAB 1000 MG PO (18:57)
--- NOTE | 2023-02-03 19:22 | DI.VRAD_ITS ---
PROCEDURE INFORMATION: Exam: XR Right Toe(s) Exam date and time: 02/03/2023 7:04 PM Age: 62 years old Clinical indication: Pain; Toes; Right; Additional info: Pain, no trauma TECHNIQUE: Imaging protocol: Radiologic exam of the right toes. Views: Minimum 2 views. COMPARISON: CR XR FOOT RT COMPLETE 02/03/2023 7:02 PM FINDINGS: Bones/joints: There is no evidence of acute fracture.There is no evidence of malalignment or dislocation. Soft tissues: Soft tissue swelling of the great toe. IMPRESSION: There is no evidence of acute fracture.There is no evidence of malalignment or dislocation. Dictated and Authenticated by: Jarrod Hendricks MD. Ordering:MP Whitley MD
--- NOTE | 2023-02-03 19:22 | DI.VRAD_ITS ---
PROCEDURE INFORMATION: Exam: XR Right Foot Exam date and time: 02/03/2023 7:02 PM Age: 62 years old Clinical indication: Pain; Foot; Right; Additional info: Pain, no trauma TECHNIQUE: Imaging protocol: Radiologic exam of the right foot. Views: 3 or more views. COMPARISON: No relevant prior studies available. FINDINGS: Bones/joints: There is no evidence of acute fracture.There is no evidence of malalignment or dislocation. Degenerative changes at the tarsal metatarsal joints Soft tissues: Soft tissue swelling over the dorsum of the foot. IMPRESSION: 1. There is no evidence of acute fracture.There is no evidence of malalignment or dislocation. 2. Soft tissue swelling over the dorsum of the foot. Dictated and Authenticated by: Jarrod Hendricks MD. Ordering:MP Whitley MD
--- NOTE | 2023-02-03 19:23 | DI.VRAD_ITS ---
PROCEDURE INFORMATION: Exam: XR Right Knee Exam date and time: 02/03/2023 7:12 PM Age: 62 years old Clinical indication: Pain; Knee; Right; Additional info: Pain, no trauma TECHNIQUE: Imaging protocol: Radiologic exam of the right knee. Views: 3 views. COMPARISON: CR XR TOE RT GREAT 02/03/2023 7:04 PM FINDINGS: Bones/joints: Tricompartmental joint space narrowing and osteophyte formation consistent with degenerative changes. There is no evidence of acute fracture.There is no evidence of malalignment or dislocation. Soft tissues: Normal. IMPRESSION: 1. Tricompartmental joint space narrowing and osteophyte formation consistent with degenerative changes. 2. There is no evidence of acute fracture.There is no evidence of malalignment or dislocation. Dictated and Authenticated by: Jarrod Hendricks MD. Ordering:MP Whitley MD
[2023-02-03] MEDS: predniSONE 20 MG TAB 40 MG PO (19:46)
== END 2023-02-03 20:46 | disposition home or self-care (01) ==
PROVIDERS: Emergency Provider Nurse Practitioner Acute Care; PCP Family Medicine
DX: M10.9 Gout, unspecified (principal)
CPT/HCPCS: 73562; 96372; 99284; 73630; 73660; J1885; J7512

== ENCOUNTER 2023-02-04 19:15 | Emergency (ER) | payer MEDICARE, MEDICAID, SELFPAY ==
[2023-02-04 19:19] VITALS: BP 145/82; PULSE 83; RESP 16; TEMP 36.3; O2SAT 98
--- NOTE | 2023-02-04 20:51 | W.ED.GENAD ---
Discharge Plan Disposition Patient Disposition: Home Condition: Stable Discharge Details Clinical Impression: Gouty arthritis of toe of right foot, Edema Primary Care Provider: Luis E Narayan ED Provider: Radha Tariq Home Meds and New Rx's Prescriptions: New indomethacin 25 mg capsule 25 mg PO BID PRN (Reason: Gouty Arthritis) 5 Days Qty: 10 0RF Rx Instructions: administer with food or milk No Action budesonide-formoterol [Symbicort] 80-4.5 mcg/actuation HFA aerosol inhaler 2 puff Inhalation BID Qty: 3 11RF (DME) Aerochamber MV spacer See Dose Instructions .Route .MEDSUPPLY Qty: 1 0RF Dose Instruction: As directed Rx Instructions: As directed fluticasone propionate [Flonase Allergy Relief] 50 mcg/actuation spray,suspension 1 spray KUMAR BID PRN (Reason: nasal congestion) Qty: 9.9 3RF Rx Instructions: administer into each nostril loratadine [Claritin] 10 mg tablet 10 mg PO DAILY lorazepam 1 mg tablet 0.5 - 1 mg PO BID PRN (Reason: anxiety) Qty: 30 0RF Rx Instructions: 12/06/20 PT USES 1 MG AT HS AND 0.5 MG AT NOON nitroglycerin 0.4 mg tablet, sublingual 0.4 mg Sublingual PRN Qty: 25 2RF Rx Instructions: 1 TAB SL PRN melatonin 10 mg capsule 10 mg PO HS PRN Adult 50 Plus Probiotic 4 billion cell capsule 4,000 mmu cells PO DAILY Qty: 30 0RF Rx Instructions: administer with a meal pantoprazole [Protonix] 40 mg tablet,delayed release (DR/EC) 40 mg PO DAILY Qty: 30 12RF acetaminophen [Tylenol] 325 MG tablet 650 mg PO Q4H PRN CPAP (DME) lancets [OneTouch Delica Lancets] 1 EACH misc 1 ea Intradermal BID Qty: 200 Rx Instructions: DX: 250.00 (DME) OneTouch Ultra Test 1 EACH strip 1 strip Miscellaneous DAILY Qty: 100 Rx Instructions: DX: 250.00 oral meds amlodipine 5 mg tablet 5 mg PO DAILY Qty: 90 4RF Rx Instructions: 1 TAB DAILY clopidogrel [Plavix] 75 mg tablet 75 mg PO DAILY Qty: 90 4RF Metoprolol Succinate 25 MG TAB.ER.24H 25 mg PO DAILY Qty: 90 4RF Rx Instructions: 1 TAB DAILY simvastatin 10 mg tablet 10 mg PO DAILY Qty: 90 4RF Rx Instructions: 1 TAB DAILY losartan [Cozaar] 100 mg tablet 100 mg PO DAILY Qty: 90 4RF Rx Instructions: 1 TAB DAILY albuterol sulfate [Ventolin HFA] 90 mcg/actuation HFA aerosol inhaler 2 puff IH Q4H PRN (Reason: shortness of breath or wheezing) Qty: 8.5 11RF aspirin 81 mg Tablet,Delayed Release (Dr/Ec) 81 mg PO DAILY lamotrigine 100 mg tablet 100 mg PO QAM Patient Comments: TAKE ONE TABLET BY MOUTH TWICE A DAY buspirone 15 mg tablet 15 mg PO BID Patient Comments: TAKE ONE TABLET BY MOUTH TWICE A DAY trazodone 50 mg tablet 100 mg PO HS PRN Rx Instructions: 1-tab at HS PRN simethicone 125 mg tablet,chewable 125 mg PO TID PRN (Reason: abdominal distention) Qty: 30 0RF albuterol sulfate 2.5 mg/0.5 mL solution for nebulization 2.5 mg inhalation Q4H Qty: 30 0RF albuterol sulfate 2.5 mg /3 mL (0.083 %) solution for nebulization 2.5 mg IH Q4H PRN (Reason: shortness of breath or wheezing) Qty: 75 0RF (DME) nebulizers [Aeroneb Go Nebulizer] Misc See Rx Instructions .Route Qty: 1 0RF Rx Instructions: As directed insulin glargine 100 unit/mL Cartridge 10 unit SUBCUT BID prednisone 20 mg Tablet 40 mg PO DAILY Qty: 8 0RF metformin 500 mg tablet 1,000 mg PO BID Hold Instructions: Resume on 06/05/22. Please hold metformin for 48 hours (DME) blood-glucose meter [FreeStyle Lite Meter] Kit See Rx Instructions .ROUTE .MEDSUPPLY Qty: 1 0RF Rx Instructions: As directed (DME) FreeStyle Lite Strips Strip See Rx Instructions .ROUTE .MEDSUPPLY Qty: 10 0RF Rx Instructions: As directed Discharge Instructions Instructions: Arthralgia (ED), Edema (ED) Additional Instructions: You may stop the prednisone as this will increase your blood sugars. You may try the indomethacin with food. Wear compression socks, elevate your legs when sitting or lying down. You may apply ice. Take the indomethacin as directed. COVID flu and RSV swabs are negative. Follow up with primary care provider in 3-5 days. Return to ED sooner if any worsening or concerns. Increase oral fluids. Referrals: Luis E Narayan [Primary Care Provider] - 3 days Medical Decision Making 62-year-old female presents to the ER for the second time in 2 days with chief complaint of right foot pain and swelling, body aches chills and overall not feeling well. Patient was placed on prednisone and has had BGL of greater than 250 or 279. She was diagnosed with gout. She denies any injuries to her foot. She does have some tenderness to the dorsum of her right foot and some generalized lower extremity swelling. Mild amount of erythema noted to the first joint of her great toe. She is a smoker does have a past medical history of COPD, depression, heart murmur, anxiety, atherosclerotic cardiovascular disease, hyperlipidemia, hypertension, morbid obesity. She denies any throat pain ear pain, chest pain. She does have a cough which she attributes to being a smoker. She is requesting lab work and Lyme panel. BGL upon arrival is 279 by fingerstick. Labs ordered including CBC CMP, tick and Lyme panel, proBNP, BUN slightly elevated 21, glucose 234, patient was given 500 cc normal saline bolus swabbed for flu RSV COVID which is all within normal limits. proBNP within normal limits. Patient given prescription for indomethacin. Discussed that prednisone will increase her sugars. She may stop this and try the indomethacin with food. I did encourage follow-up with PCP in the next few days. Patient is on multiple medications including Plavix. Uric acid within normal limits. No evidence to suggest cellulitis or systemic infection at this time. This text was generated using [employer] system, please disregard any oddities of phrase or misspellings. Medical Records Medical records reviewed: Yes I reviewed the patient's medical records. Lab Data Lab results reviewed: Yes I reviewed the patient's lab results. Labs: Laboratory Tests Range/Units 02/04/23 02/04/23 02/04/23 21:00 21:00 21:00 WBC (4.4-10.8) 10^3/uL 11.29 H RBC (3.93-5.22) 10^6/uL 4.97 Hgb (11.2-15.7) g/dL 14.0 Hct (36.0-46.0) % 41.7 MCV (80-95) fL 84 MCH (27.0-33.0) pg 28.2 MCHC (32.0-36.0) % 33.6 RDW (11.7-14.6) % 14.6 Plt Count (130-400) 10^3/uL 399 MPV (8.0-11.0) fL 9.1 Immature Gran % 0.7 Neutrophils % 85.9 Lymphocytes % 10.4 Monocytes % 2.8 Eosinophils % 0.0 Basophils % 0.2 Nucleated RBC % (0.0-0.3) % 0.0 Absolute Neutrophils (1.2-6.7) 10^3/uL 9.70 H Absolute Lymphocytes (1.2-3.4) 10^3/uL 1.17 L Absolute Monocytes (0.1-0.8) 10^3/uL 0.32 Absolute Eosinophils (0.0-0.7) 10^3/uL 0.00 Absolute Basophils (0.0-0.2) 10^3/uL 0.02 Sodium (136-145) mmol/L 138 Potassium (3.5-5.1) mmol/L 4.3 Chloride (98-107) mmol/L 101 Carbon Dioxide (21.0-32.0) mmol/L 26.8 Anion Gap (3-11) mmol/L 10.2 BUN (7-18) mg/dL 21 H Creatinine (0.55-1.02) mg/dL 1.0 Est GFR (CKD-EPI 2020) (mL/min/1.73m2) 63.30 Glucose (74-106) mg/dL 234 H Uric Acid (2.6-6.0) mg/dL 3.5 Calcium (8.5-10.1) mg/dL 9.3 Magnesium (1.8-2.4) mg/dL 1.8 Total Bilirubin (0.2-1.0) mg/dL 0.4 AST (15-37) U/L 19 ALT (14-59) U/L 34 Alkaline Phosphatase (46-116) U/L 113 NT-Pro-B Natriuret Pep (<300) pg/mL Total Protein (6.4-8.2) g/dL 7.7 Albumin (3.4-5.0) g/dL 3.8 Urine Color (Yellow) Urine Clarity (Clear) Urine pH (5-8) Ur Specific [place] (1.005-1.025) Urine Protein (Negative) mg/dL Urine Ketones (Negative) mg/dL Urine Blood (Negative) Urine Nitrite (Negative) Urine Bilirubin (Negative) Urine Urobilinogen (Up to 0.2) mg/dL Ur Leukocyte Esterase (Negative) Urine Glucose (Negative) mg/dL Range/Units 02/04/23 02/04/23 21:00 21:20 WBC (4.4-10.8) 10^3/uL RBC (3.93-5.22) 10^6/uL Hgb (11.2-15.7) g/dL Hct (36.0-46.0) % MCV (80-95) fL MCH (27.0-33.0) pg MCHC (32.0-36.0) % RDW (11.7-14.6) % Plt Count (130-400) 10^3/uL MPV (8.0-11.0) fL Immature Gran % Neutrophils % Lymphocytes % Monocytes % Eosinophils % Basophils % Nucleated RBC % (0.0-0.3) % Absolute Neutrophils (1.2-6.7) 10^3/uL Absolute Lymphocytes (1.2-3.4) 10^3/uL Absolute Monocytes (0.1-0.8) 10^3/uL Absolute Eosinophils (0.0-0.7) 10^3/uL Absolute Basophils (0.0-0.2) 10^3/uL Sodium (136-145) mmol/L Potassium (3.5-5.1) mmol/L Chloride (98-107) mmol/L Carbon Dioxide (21.0-32.0) mmol/L Anion Gap (3-11) mmol/L BUN (7-18) mg/dL Creatinine (0.55-1.02) mg/dL Est GFR (CKD-EPI 2020) (mL/min/1.73m2) Glucose (74-106) mg/dL Uric Acid (2.6-6.0) mg/dL Calcium (8.5-10.1) mg/dL Magnesium (1.8-2.4) mg/dL Total Bilirubin (0.2-1.0) mg/dL AST (15-37) U/L ALT (14-59) U/L Alkaline Phosphatase (46-116) U/L NT-Pro-B Natriuret Pep (<300) pg/mL 193 Total Protein (6.4-8.2) g/dL Albumin (3.4-5.0) g/dL Urine Color (Yellow) Yellow Urine Clarity (Clear) Clear Urine pH (5-8) 5.5 Ur Specific [place] (1.005-1.025) <= 1.005 Urine Protein (Negative) mg/dL Negative Urine Ketones (Negative) mg/dL Negative Urine Blood (Negative) Negative Urine Nitrite (Negative) Negative Urine Bilirubin (Negative) Negative Urine Urobilinogen (Up to 0.2) mg/dL 0.2 Ur Leukocyte Esterase (Negative) Negative Urine Glucose (Negative) mg/dL Negative HPI General Mode of arrival: ambulatory. Date/Time Provider Initiated Documentation: 02/04/23 19:33. Limitations to Documentation: no limitations. Information obtained by: patient, RN notes reviewed and old records reviewed. HPI Narrative: 62-year-old female presents to the ER for the second time in 2 days with chief complaint of right foot pain and swelling, body aches chills and overall not feeling well. Patient was placed on prednisone and has had BGL of greater than 250 or 279. She was diagnosed with gout. She denies any injuries to her foot. She does have some tenderness to the dorsum of her right foot and some generalized lower extremity swelling. Mild amount of erythema noted to the first joint of her great toe. She is a smoker does have a past medical history of COPD, depression, heart murmur, anxiety, atherosclerotic cardiovascular disease, hyperlipidemia, hypertension, morbid obesity. She denies any throat pain ear pain, chest pain. She does have a cough which she attributes to being a smoker. She is requesting lab work and Lyme panel. BGL upon arrival is 279 by fingerstick. Related Data Home Medications Medication Instructions Recorded Confirmed Cpap 10/24/12 01/06/22 acetaminophen 325 mg tablet 650 mg PO Q4H PRN 10/24/12 02/03/23 (Tylenol) lancets 33 gauge (Oneuch Delruchi #200 ea 12/15/12 03/31/22 Lancets) blood sugar diagnostic (OneTouch #100 strips 01/24/14 03/31/22 Ultra Test strips) budesonide-formoterol HFA 80 2 puff inhalation BID #3 grams 05/01/18 02/03/23 mcg-4.5 mcg/actuation aerosol inhaler (Symbicort) inhalational spacing device #1 ea 05/01/18 03/31/22 (Aerochamber MV spacer) nitroglycerin 0.4 mg sublingual 0.4 mg sublingual PRN #25 tab-caps 05/04/18 02/03/23 tablet amlodipine 5 mg tablet 5 mg PO DAILY #90 tab-caps 07/27/18 02/03/23 clopidogrel 75 mg tablet (Plavix) 75 mg PO DAILY #90 tabs 07/27/18 02/03/23 simvastatin 10 mg tablet 10 mg PO DAILY #90 tab-caps 07/31/18 02/03/23 losartan 100 mg tablet (Cozaar) 100 mg PO DAILY #90 tab-caps 12/27/18 02/03/23 fluticasone propionate 50 1 spray intranasal BID PRN nasal 02/03/19 02/03/23 mcg/actuation nasal congestion #9.9 grams spray,suspension (Flonase Allergy Relief) loratadine 10 mg tablet (Claritin) 10 mg PO DAILY 02/03/19 02/03/23 lorazepam 1 mg tablet 0.5 - 1 mg PO BID PRN anxiety #30 02/19/19 02/03/23 tabs albuterol sulfate 90 mcg/actuation 2 puff inhalation Q4H PRN 08/29/19 02/03/23 aerosol inhaler (Ventolin HFA) shortness of breath or wheezing #8.5 grams metformin 500 mg tablet 1,000 mg PO BID 09/12/19 02/03/23 aspirin 81 mg tablet,delayed 81 mg PO DAILY 08/17/20 02/03/23 release buspirone 15 mg tablet 15 mg PO BID 08/17/20 02/03/23 lamotrigine 100 mg tablet 100 mg PO QAM 08/17/20 02/03/23 trazodone 50 mg tablet 100 mg PO HS PRN 08/17/20 02/03/23 blood sugar diagnostic (FreeStyle #10 ea 12/06/20 06/03/22 Lite Strips) blood-glucose meter (FreeStyle #1 ea 12/06/20 03/31/22 Lite Meter kit) melatonin 10 mg capsule 10 mg PO HS PRN 02/23/21 02/03/23 lactobacillus combination no.9 4 4,000 mmu cells PO DAILY #30 caps 10/13/21 08/28/22 billion cell capsule (Adult 50 Plus Probiotic) simethicone 125 mg chewable tablet 125 mg PO TID PRN abdominal 11/11/21 02/03/23 distention #30 tabs pantoprazole 40 mg tablet,delayed 40 mg PO DAILY #30 tabs 11/25/21 02/03/23 release (Protonix) albuterol sulfate 2.5 mg/0.5 mL 2.5 mg (0.5 mL) inhalation Q4H #30 03/31/22 02/03/23 solution for nebulization ea albuterol sulfate 2.5 mg/3 mL 2.5 mg (3 mL) inhalation Q4H PRN 04/03/22 02/03/23 (0.083 %) solution for nebulization shortness of breath or wheezing #75 mL nebulizers ([employer] Go Nebulizer) #1 ea 04/03/22 insulin glargine 100 unit/mL 10 unit subcut BID 01/07/23 02/04/23 subcutaneous cartridge prednisone 20 mg tablet 40 mg PO DAILY #8 tabs 02/03/23 indomethacin 25 mg capsule 25 mg PO BID PRN Gouty Arthritis 5 02/04/23 days #10 caps Previous Rx's Medication Instructions Recorded budesonide-formoterol HFA 80 2 puff inhalation BID #3 grams 05/01/18 mcg-4.5 mcg/actuation aerosol inhaler (Symbicort) inhalational spacing device #1 ea 05/01/18 (Aerochamber MV spacer) nitroglycerin 0.4 mg sublingual 0.4 mg sublingual PRN #25 tab-caps 05/04/18 tablet amlodipine 5 mg tablet 5 mg PO DAILY #90 tab-caps 07/27/18 clopidogrel 75 mg tablet (Plavix) 75 mg PO DAILY #90 tabs 07/27/18 simvastatin 10 mg tablet 10 mg PO DAILY #90 tab-caps 07/31/18 losartan 100 mg tablet (Cozaar) 100 mg PO DAILY #90 tab-caps 12/27/18 fluticasone propionate 50 1 spray intranasal BID PRN nasal 02/03/19 mcg/actuation nasal congestion #9.9 grams spray,suspension (Flonase Allergy Relief) lorazepam 1 mg tablet 0.5 - 1 mg PO BID PRN anxiety #30 02/19/19 tabs albuterol sulfate 90 mcg/actuation 2 puff inhalation Q4H PRN 08/29/19 aerosol inhaler (Ventolin HFA) shortness of breath or wheezing #8.5 grams blood sugar diagnostic (FreeStyle #10 ea 12/06/20 Lite Strips) blood-glucose meter (FreeStyle #1 ea 12/06/20 Lite Meter kit) lactobacillus combination no.9 4 4,000 mmu cells PO DAILY #30 caps 10/13/21 billion cell capsule (Adult 50 Plus Probiotic) simethicone 125 mg chewable tablet 125 mg PO TID PRN abdominal 11/11/21 distention #30 tabs pantoprazole 40 mg tablet,delayed 40 mg PO DAILY #30 tabs 11/25/21 release (Protonix) albuterol sulfate 2.5 mg/0.5 mL 2.5 mg (0.5 mL) inhalation Q4H #30 03/31/22 solution for nebulization ea albuterol sulfate 2.5 mg/3 mL 2.5 mg (3 mL) inhalation Q4H PRN 04/03/22 (0.083 %) solution for nebulization shortness of breath or wheezing #75 mL nebulizers (Aeroneb Go Nebulizer) #1 ea 04/03/22 prednisone 20 mg tablet 40 mg PO DAILY #8 tabs 02/03/23 indomethacin 25 mg capsule 25 mg PO BID PRN Gouty Arthritis 5 02/04/23 days #10 caps Allergies Allergy/AdvReac Type Severity Reaction Status Date / Time azithromycin AdvReac Mild Nausea Verified 02/04/23 19:25 codeine AdvReac Mild Nausea Verified 02/04/23 19:25 erythromycin base AdvReac Mild Nausea Verified 02/04/23 19:25 ibuprofen AdvReac Mild Nausea Verified 02/04/23 19:25 lisinopril AdvReac Mild cough Verified 02/04/23 19:25 NSAIDS (Non-Steroidal AdvReac Mild Nausea Verified 02/04/23 19:25 Anti-Inflamma General Stated Complaint: GenMedical MONICA: 3 Review of Systems All systems reviewed & are unremarkable except as noted in HPI and below Constitutional Constitutional: Reports as per HPI, Reports body ache(s), Reports headache(s) and Reports lethargy ENT Ears, Nose, Mouth, and Throat: Reports headache(s) Musculoskeletal Musculoskeletal: Reports as per HPI, Reports arthralgias and Reports joint swelling Neurologic Neurologic: Reports headache(s) PFSH All Active Problems (Updated 02/04/23 @ 22:50 by Radha Tariq NP) Hyperglycemia due to type 2 diabetes mellitus (Acute) Anxiety about health (Acute) Gout (Chronic) Gouty arthritis of toe of right foot (Acute) Edema (Acute) Liver cirrhosis secondary to nonalcoholic steatohepatitis (B[place]ERA) (Acute) Chronic diarrhea (Acute) Epigastric pain (Acute) Hyperplastic colon polyp (Acute) ASCVD (arteriosclerotic cardiovascular disease) (Acute) 10/15 anterolat NSTE MD; stent x 4; 10/15 echo-EF 55%; inf.wall hypokinesis; mild Anxiety (Acute) after MD decreased [place] [place] COPD (chronic obstructive pulmonary disease) (Acute) continues to smoke Depressive disorder (Acute) fatigue Diabetic peripheral neuropathy associated with type 2 diabetes mellitus (Acute 03/03/16) Essential hypertension (Acute 05/03/13) Urinary, incontinence, stress female (Acute 09/13/13) Heart murmur (Acute 09/13/13) 10/21 echo LVEF 70% with LVH, aoritc valve thickened but opens well (no signif aortic stenosis) [facility] Echo 02/05/19 - LVH (mild-mod), EeF= 60-65%, systolic function normal, ascending aorta mildly dilated Hyperlipidemia (Acute 12/18/12) Morbid obesity (Acute) Numbness and tingling in right hand (Acute 03/03/16) Obstructive sleep apnea syndrome (Acute 03/27/10) [facility] [place] Pap smear abnormality of cervix with LGSIL (Acute) LGSIL +HPV; BX darcie I Postmenopausal bleeding (Acute 09/21/11) atypical endometrial hyperplasia Sciatica (Acute 07/04/13) left sciatica, [place] [facility] [place]: L3-4 disc extrusion Skin tags, multiple acquired (Acute 02/15/16) Smoker (Acute) Type II diabetes mellitus, uncontrolled (Acute) Asthma (Chronic) Status post arthroscopy of left knee (Acute) History of section (Acute) Family history of malignant neoplasm of breast (Acute 09/11/14) Fever (Acute) She is febrile and has both abdominal and chest symptoms. We will send to the emergency room. Upper respiratory infection (Acute) Hyperglycemia (Acute) Acute bronchospasm (Acute) Seasonal allergies (Acute) History of COPD (Acute) Fatty liver (Acute) Diverticulosis (Acute) Constipation (Acute) Incontinence (Acute) Pedal edema (Acute) Varicose veins of lower extremity (Acute) Bipolar disorder (Chronic) Compliant with therapeutic regimen (Acute) Caren, oral (Acute) Allergic rhinitis (Acute) Medical History Anxiety Atherosclerotic cardiovascular disease COPD (chronic obstructive pulmonary disease) Depression Heart murmur History of renal carcinoma Hx of malignant neoplasm of eye Hyperlipidemia Hypertension Morbid obesity with BMI of 40.0-44.9, adult Plantar fasciitis of left foot Sleep apnea Stress incontinence in female Surgical History Arthroplasty of knee athroscopy not arthroplasty. Cervical Procedure BX DARCIE I section (~1981) H/O esophagogastroduodenoscopy (~03/10/21) S/P colonoscopy (~03/10/21) Stent placement X 4 TO LCX-1995 Family History Mother Personal history of malignant neoplasm UTERINE CA; HYSTERECTOMY AGE 76 Uterine cancer Hysterectomy at 76 Father Heart disease Brother Diabetes Cancer Brother No problems noted. Brother No problems noted. Social History Smoking/Tobacco Use Status: Current every day Tobacco Type: cigarettes Smoking packs per day: 1 Smoking cigarettes per day: 20.0 Smoking risk assessment performed?: Yes Alcohol Intake: former Drug use: Never Substance use type: does not use Household members: significant other Housing: house Communication Needs: None Do you need help understanding health information?: Rarely Pets and animals: Yes Pets and animals: dog(s) Do you think of yourself as: straight/heterosexual Current gender identity: female What is your relationship status?: living with partner How often do you talk on the phone with friends or family?: three or more times per week How often do you get together with friends or relatives?: decline to answer How often do you attend oriental orthodox or bahai services?: decline to answer Do you belong to any clubs or organized social groups?: no Panel score (0-1 are the most socially isolated patients): 2 What type of physical activity do you participate in: none Duration: < 15 minutes/day Frequency: daily Katerina/Scientologist: none Special katerina needs: No Seatbelt use: sometimes Helmet use: Yes Helmet use: always Drive intox or ride w/intox limb driver: No Do you feel safe at home: Yes Do you feel safe in your relationship?: Yes Exam Narrative Exam Narrative: Constitutional: Alert and oriented x3. Appears stated age. Normal body habitus. Head: Normocephalic, no trauma. Eyes: Pupils PERRL, Red reflex noted, EOM's intact. Eyelids symmetrical without lesions, discharge, or swelling. ENT: Bilateral TM's WNL, External ear normal to inspection, no mastoid TTP, swelling, or erythema, Nasal turbinates WNL, no nasal discharge. Normal dentition, Posterior pharynx WNL, no exudate. Chest: RRR, Normal S1, S2, distal pulses intact. Resp: Lungs clear to auscultation bilaterally, no rales, or rhonchi. Abdomen: Soft, non-distended, Normoactive bowel sounds all 4 quads. Musculoskeletal: Normal gait, 5/5 strength to all four extremities. Skin: No suspicious rashes or lesions. Capillary refill less than 2 sec. patient does have some erythema or her great toe on her right foot joint. She does have mild edema bilateral lower extremities. No open lesion or induration or red streaks or signs of cellulitis. Neurologic: Cranial nerves II-XII intact. Alert and oriented x 3. Motor: No deficits noted. Sensory: Intact bilaterally all 4 extremities. . Hematologic/Lymphatic: No ecchymosis, no lymphadenopathy. Course Vital Signs Vital signs: Vital Signs Temperature 36.3 C L 02/04/23 19:19 Pulse 83 02/04/23 19:19 Respiratory Rate 16 02/04/23 19:19 Blood Pressure 145/82 H 02/04/23 19:19 Pulse Oximetry 98 02/04/23 19:19 Temperature 36.3 C L 02/04/23 19:19 Temperature Source Oral 02/04/23 19:19 Pulse 83 02/04/23 19:19 Respiratory Rate 16 02/04/23 19:19 Respiratory Effort Normal 02/04/23 19:23 Respiratory Depth Normal 02/04/23 19:23 Respiratory Pattern Normal 02/04/23 19:23 Blood Pressure 145/82 H 02/04/23 19:19 Pulse Oximetry 98 02/04/23 19:19 Oxygen Delivery Method Room Air 02/04/23 19:19 Oxygen Flow Rate 0 02/04/23 19:19 Pain Level 8 02/04/23 19:19
[2023-02-04 21:16] LABS: Abs Immature Grans 0.08 10^3/uL (0.0-0.06); Absolute Basophil Count 0.02 10^3/uL (0.0-0.2); Absolute Lymphocyte Count 1.17 10^3/uL (1.2-3.4); Absolute Monocyte Count 0.32 10^3/uL (0.1-0.8); Basophils % 0.2; HCT 41.7 % (36.0-46.0); Immature Grans % 0.7; Lymphocytes % 10.4; MCH 28.2 pg (27.0-33.0); MCHC 33.6 % (32.0-36.0); MCV 84 fL (80-95); MPV 9.1 fL (8.0-11.0); Monocytes % 2.8; Neutrophils % 85.9; Platelet Count 399 10^3/uL (130-400); RBC 4.97 10^6/uL (3.93-5.22); RDW 14.6 % (11.7-14.6); RDW-SD 44.8 fL; WBC 11.29 10^3/uL (4.4-10.8)
[2023-02-04 21:28] LABS: Bilirubin Negative (Negative); Blood Negative (Negative); Clarity Clear (Clear); Glucose Negative (Negative); Ketones Negative (Negative); Leukocyte Esterase Negative (Negative); Nitrite Negative (Negative); Specific Gravity <= 1.005 (1.005-1.025); Urobilinogen 0.2 mg/dL (Up to 0.2); pH 5.5 (5-8)
[2023-02-04 21:32] LABS: Uric Acid 3.5 mg/dL (2.6-6.0)
[2023-02-04 21:36] LABS: ALT 34 U/L (14-59); AST 19 U/L (15-37); Albumin 3.8 g/dL (3.4-5.0); Alkaline Phosphatase 113 U/L (46-116); Anion Gap 10.2 mmol/L (3-11); BUN 21 mg/dL (7-18); Bilirubin, Total 0.4 mg/dL (0.2-1.0); CO2 26.8 mmol/L (21.0-32.0); Calcium 9.3 mg/dL (8.5-10.1); Chloride 101 mmol/L (98-107); Glucose 234 mg/dL (74-106); Magnesium 1.8 mg/dL (1.8-2.4); Potassium 4.3 mmol/L (3.5-5.1); Sodium 138 mmol/L (136-145); Total Protein 7.7 g/dL (6.4-8.2)
[2023-02-04 21:42] LABS: NT-proBNP 193 pg/mL (<300)
[2023-02-04] MEDS: Indomethacin 25 MG CAP 50 MG PO (22:10)
[2023-02-04] MEDS: Normal Saline 250 ML 500 ML IV (22:22)
[2023-02-06 10:52] LABS: Lyme Ab w Rflx to Lyme Confirm Negative (Negative)
[2023-02-07 22:53] LABS: Anaplasma phagocytophilum Negative (Negative); B. miyamotoi PCR Negative (Negative); Babesia divergens/MO-1 Negative (Negative); Babesia duncani Negative (Negative); Babesia microti Negative (Negative); Ehrlichia chaffeensis Negative (Negative); Ehrlichia ewingii/canis Negative (Negative); Ehrlichia muris eauclairensis Negative (Negative)
== END 2023-02-04 23:06 | disposition home or self-care (01) ==
PROVIDERS: Emergency Provider Registered Nurse Emergency; PCP Family Medicine
DX: E11.65 Type 2 diabetes mellitus with hyperglycemia (principal); M10.9 Gout, unspecified; R06.02 Shortness of breath; F17.210 Nicotine dependence, cigarettes, uncomplicated; Z79.02 Long term (current) use of antithrombotics/antiplatelets; Z79.82 Long term (current) use of aspirin; Z79.4 Long term (current) use of insulin
CPT/HCPCS: 80053; 82962; 87798; 99283; 81003; 83735; 83880; 84550; 85025; 86618

== ENCOUNTER 2023-02-24 01:42 | Emergency (ER) | payer MEDICARE, MEDICAID, SELFPAY ==
[2023-02-24 01:47] VITALS: BP 147/64; PULSE 95; RESP 24; TEMP 36.9; O2SAT 97
--- NOTE | 2023-02-24 02:06 | ED.GENADUL_ITS ---
Discharge Plan Disposition Patient Disposition: Home Discharge Details Chief Complaint: Diabetes Clinical Impression: Hyperglycemia, Joint pain Primary Care Provider: Luis E Narayan ED Provider: Yashira Saleh Home Meds and New Rx's Prescriptions: No Action budesonide-formoterol [Symbicort] 80-4.5 mcg/actuation HFA aerosol inhaler 2 puff Inhalation BID Qty: 3 11RF (DME) Aerochamber MV spacer See Dose Instructions .Route .MEDSUPPLY Qty: 1 0RF Dose Instruction: As directed Rx Instructions: As directed fluticasone propionate [Flonase Allergy Relief] 50 mcg/actuation spray,suspension 1 spray KUMAR BID PRN (Reason: nasal congestion) Qty: 9.9 3RF Rx Instructions: administer into each nostril loratadine [Claritin] 10 mg tablet 10 mg PO DAILY lorazepam 1 mg tablet 0.5 - 1 mg PO BID PRN (Reason: anxiety) Qty: 30 0RF Rx Instructions: 12/06/20 PT USES 1 MG AT HS AND 0.5 MG AT NOON nitroglycerin 0.4 mg tablet, sublingual 0.4 mg Sublingual PRN Qty: 25 2RF Rx Instructions: 1 TAB SL PRN melatonin 10 mg capsule 10 mg PO HS PRN Adult 50 Plus Probiotic 4 billion cell capsule 4,000 mmu cells PO DAILY Qty: 30 0RF Rx Instructions: administer with a meal pantoprazole [Protonix] 40 mg tablet,delayed release (DR/EC) 40 mg PO DAILY Qty: 30 12RF acetaminophen [Tylenol] 325 MG tablet 650 mg PO Q4H PRN CPAP (DME) lancets [OneTouch Delica Lancets] 1 EACH misc 1 ea Intradermal BID Qty: 200 Rx Instructions: DX: 250.00 (DME) OneTouch Ultra Test 1 EACH strip 1 strip Miscellaneous DAILY Qty: 100 Rx Instructions: DX: 250.00 oral meds amlodipine 5 mg tablet 5 mg PO DAILY Qty: 90 4RF Rx Instructions: 1 TAB DAILY clopidogrel [Plavix] 75 mg tablet 75 mg PO DAILY Qty: 90 4RF Metoprolol Succinate 25 MG TAB.ER.24H 25 mg PO DAILY Qty: 90 4RF Rx Instructions: 1 TAB DAILY simvastatin 10 mg tablet 10 mg PO DAILY Qty: 90 4RF Rx Instructions: 1 TAB DAILY losartan [Cozaar] 100 mg tablet 100 mg PO DAILY Qty: 90 4RF Rx Instructions: 1 TAB DAILY albuterol sulfate [Ventolin HFA] 90 mcg/actuation HFA aerosol inhaler 2 puff IH Q4H PRN (Reason: shortness of breath or wheezing) Qty: 8.5 11RF aspirin 81 mg Tablet,Delayed Release (Dr/Ec) 81 mg PO DAILY lamotrigine 100 mg tablet 100 mg PO QAM Patient Comments: TAKE ONE TABLET BY MOUTH TWICE A DAY buspirone 15 mg tablet 15 mg PO BID Patient Comments: TAKE ONE TABLET BY MOUTH TWICE A DAY trazodone 50 mg tablet 100 mg PO HS PRN Rx Instructions: 1-tab at HS PRN simethicone 125 mg tablet,chewable 125 mg PO TID PRN (Reason: abdominal distention) Qty: 30 0RF albuterol sulfate 2.5 mg/0.5 mL solution for nebulization 2.5 mg inhalation Q4H Qty: 30 0RF albuterol sulfate 2.5 mg /3 mL (0.083 %) solution for nebulization 2.5 mg IH Q4H PRN (Reason: shortness of breath or wheezing) Qty: 75 0RF (DME) nebulizers [Aeroneb Go Nebulizer] Misc See Rx Instructions .Route Qty: 1 0RF Rx Instructions: As directed insulin glargine 100 unit/mL Cartridge 10 unit SUBCUT BID prednisone 20 mg Tablet 40 mg PO DAILY Qty: 8 0RF metformin 500 mg tablet 1,000 mg PO BID Hold Instructions: Resume on 06/05/22. Please hold metformin for 48 hours (DME) blood-glucose meter [FreeStyle Lite Meter] Kit See Rx Instructions .ROUTE .MEDSUPPLY Qty: 1 0RF Rx Instructions: As directed (DME) FreeStyle Lite Strips Strip See Rx Instructions .ROUTE .MEDSUPPLY Qty: 10 0RF Rx Instructions: As directed Discharge Instructions Instructions: Diabetic Hyperglycemia (ED) Additional Instructions: Call your primary care doctor today to schedule an appointment within one week to followup on your visit here. Return to the emergency department for new or worsening symptoms including abdominal pain, vomiting, or feeling like you are going to pass out. Referrals: Luis E Narayan [Primary Care Provider] - Medical Decision Making 62yo F with diabetes presenting for elevated blood sugar. Usually runs high 100's to low 200's, this evening was over 300 and so presented for evaluation. No symptoms of DKA. Takes 10U long acting insulin as well as metformin, no sliding scale or short acting. Chronic joint pain; will give toradol for this. Vital signs and physical exam reassuring. CBC with no significant abnormalities. CMP with hyperglycemia to 372, not in DKA. On reassessment remains well appearing with reasuring vital signs, pain improved. She remains quite concerned about her blood sugar. Will give small dose of short acting here (2 units) and advised followup with primary care doctor to discuss her diabetes regimen. Discharged home; discharge instructions and return precautions were reviewed with patient who verbalized understanding. All questions were answered and she is in full agreement with the plan. . Lab Data Lab results reviewed: Yes I reviewed the patient's lab results. Labs: Laboratory Tests Range/Units 02/24/23 02/24/23 01:55 01:55 WBC (4.4-10.8) 10^3/uL 9.70 RBC (3.93-5.22) 10^6/uL 5.47 H Hgb (11.2-15.7) g/dL 15.2 Hct (36.0-46.0) % 46.6 H MCV (80-95) fL 85 MCH (27.0-33.0) pg 27.8 MCHC (32.0-36.0) % 32.6 RDW (11.7-14.6) % 14.7 H Plt Count (130-400) 10^3/uL 469 H MPV (8.0-11.0) fL 9.5 Immature Gran % 0.4 Neutrophils % 88.9 Lymphocytes % 9.3 Monocytes % 1.1 Eosinophils % 0.0 Basophils % 0.3 Nucleated RBC % (0.0-0.3) % 0.0 Absolute Neutrophils (1.2-6.7) 10^3/uL 8.62 H Absolute Lymphocytes (1.2-3.4) 10^3/uL 0.90 L Absolute Monocytes (0.1-0.8) 10^3/uL 0.11 Absolute Eosinophils (0.0-0.7) 10^3/uL 0.00 Absolute Basophils (0.0-0.2) 10^3/uL 0.03 Sodium (136-145) mmol/L 138 Potassium (3.5-5.1) mmol/L 4.8 Chloride (98-107) mmol/L 101 Carbon Dioxide (21.0-32.0) mmol/L 26.2 Anion Gap (3-11) mmol/L 10.8 BUN (7-18) mg/dL 23 H Creatinine (0.55-1.02) mg/dL 1.5 H Est GFR (CKD-EPI 2020) (mL/min/1.73m2) 38.91 Glucose (74-106) mg/dL 372 H Calcium (8.5-10.1) mg/dL 9.8 Total Bilirubin (0.2-1.0) mg/dL 0.6 AST (15-37) U/L 20 ALT (14-59) U/L 37 Alkaline Phosphatase (46-116) U/L 125 H Total Protein (6.4-8.2) g/dL 8.5 H Albumin (3.4-5.0) g/dL 4.2 HPI General Mode of arrival: ambulatory . Date/Time Provider Initiated Documentation: 02/24/23 01:56 . Limitations to Documentation: no limitations . Information obtained by: patient . HPI Narrative: 62yo F with diabetes presenting for elevated blood sugar. Usually runs high 100's to low 200's, this evening was over 300 and so presented for evaluation. Feels shaky and anxious. No nausea, vomiting, or abdominal pain. Has chronic joint pain and arthritis which is bother her this evening; steroid injection into right knee today. She is otherwise in her usual state of health with no fevers, chills, rash, chest pain, shortness of breathing, numbness, tingling, weakness, or other concerns. Related Data Home Medications Medication Instructions Recorded Confirmed Cpap 10/24/12 01/06/22 acetaminophen 325 mg tablet 650 mg PO Q4H PRN 10/24/12 02/03/23 (Tylenol) lancets 33 gauge ([facility] [employer]200 ea 12/15/12 03/31/22 Lancets) blood sugar diagnostic (GreenSQLuch #100 strips 01/24/14 03/31/22 Ultra Test strips) budesonide-formoterol HFA 80 2 puff inhalation BID #3 grams 05/01/18 02/03/23 mcg-4.5 mcg/actuation aerosol inhaler (Symbicort) inhalational spacing device #1 ea 05/01/18 03/31/22 (Aerochamber MV spacer) nitroglycerin 0.4 mg sublingual 0.4 mg sublingual PRN #25 tab-caps 05/04/18 02/03/23 tablet amlodipine 5 mg tablet 5 mg PO DAILY #90 tab-caps 07/27/18 02/03/23 clopidogrel 75 mg tablet (Plavix) 75 mg PO DAILY #90 tabs 07/27/18 02/03/23 simvastatin 10 mg tablet 10 mg PO DAILY #90 tab-caps 07/31/18 02/03/23 losartan 100 mg tablet (Cozaar) 100 mg PO DAILY #90 tab-caps 12/27/18 02/03/23 fluticasone propionate 50 1 spray intranasal BID PRN nasal 02/03/19 02/03/23 mcg/actuation nasal congestion #9.9 grams spray,suspension (Flonase Allergy Relief) loratadine 10 mg tablet (Claritin) 10 mg PO DAILY 02/03/19 02/03/23 lorazepam 1 mg tablet 0.5 - 1 mg PO BID PRN anxiety #30 02/19/19 02/03/23 tabs albuterol sulfate 90 mcg/actuation 2 puff inhalation Q4H PRN 08/29/19 02/03/23 aerosol inhaler (Ventolin HFA) shortness of breath or wheezing #8.5 grams metformin 500 mg tablet 1,000 mg PO BID 09/12/19 02/03/23 aspirin 81 mg tablet,delayed 81 mg PO DAILY 08/17/20 02/03/23 release buspirone 15 mg tablet 15 mg PO BID 08/17/20 02/03/23 lamotrigine 100 mg tablet 100 mg PO QAM 08/17/20 02/03/23 trazodone 50 mg tablet 100 mg PO HS PRN 08/17/20 02/03/23 blood sugar diagnostic (FreeStyle #10 ea 12/06/20 06/03/22 Lite Strips) blood-glucose meter (FreeStyle #1 ea 12/06/20 03/31/22 Lite Meter kit) melatonin 10 mg capsule 10 mg PO HS PRN 02/23/21 02/03/23 lactobacillus combination no.9 4 4,000 mmu cells PO DAILY #30 caps 10/13/21 08/28/22 billion cell capsule (Adult 50 Plus Probiotic) simethicone 125 mg chewable tablet 125 mg PO TID PRN abdominal 11/11/21 02/03/23 distention #30 tabs pantoprazole 40 mg tablet,delayed 40 mg PO DAILY #30 tabs 11/25/21 02/03/23 release (Protonix) albuterol sulfate 2.5 mg/0.5 mL 2.5 mg (0.5 mL) inhalation Q4H #30 03/31/22 02/03/23 solution for nebulization ea albuterol sulfate 2.5 mg/3 mL 2.5 mg (3 mL) inhalation Q4H PRN 04/03/22 02/03/23 (0.083 %) solution for nebulization shortness of breath or wheezing #75 mL nebulizers (Patent [employer] Go Nebulizer) #1 ea 04/03/22 insulin glargine 100 unit/mL 10 unit subcut BID 01/07/23 02/04/23 subcutaneous cartridge prednisone 20 mg tablet 40 mg PO DAILY #8 tabs 02/03/23 Previous Rx's Medication Instructions Recorded budesonide-formoterol HFA 80 2 puff inhalation BID #3 grams 05/01/18 mcg-4.5 mcg/actuation aerosol inhaler (Symbicort) inhalational spacing device #1 ea 05/01/18 (Aerochamber MV spacer) nitroglycerin 0.4 mg sublingual 0.4 mg sublingual PRN #25 tab-caps 05/04/18 tablet amlodipine 5 mg tablet 5 mg PO DAILY #90 tab-caps 07/27/18 clopidogrel 75 mg tablet (Plavix) 75 mg PO DAILY #90 tabs 07/27/18 simvastatin 10 mg tablet 10 mg PO DAILY #90 tab-caps 07/31/18 losartan 100 mg tablet (Cozaar) 100 mg PO DAILY #90 tab-caps 12/27/18 fluticasone propionate 50 1 spray intranasal BID PRN nasal 02/03/19 mcg/actuation nasal congestion #9.9 grams spray,suspension (Flonase Allergy Relief) lorazepam 1 mg tablet 0.5 - 1 mg PO BID PRN anxiety #30 02/19/19 tabs albuterol sulfate 90 mcg/actuation 2 puff inhalation Q4H PRN 08/29/19 aerosol inhaler (Ventolin HFA) shortness of breath or wheezing #8.5 grams blood sugar diagnostic (FreeStyle #10 ea 12/06/20 Lite Strips) blood-glucose meter (FreeStyle #1 ea 12/06/20 Lite Meter kit) lactobacillus combination no.9 4 4,000 mmu cells PO DAILY #30 caps 10/13/21 billion cell capsule (Adult 50 Plus Probiotic) simethicone 125 mg chewable tablet 125 mg PO TID PRN abdominal 11/11/21 distention #30 tabs pantoprazole 40 mg tablet,delayed 40 mg PO DAILY #30 tabs 11/25/21 release (Protonix) albuterol sulfate 2.5 mg/0.5 mL 2.5 mg (0.5 mL) inhalation Q4H #30 03/31/22 solution for nebulization ea albuterol sulfate 2.5 mg/3 mL 2.5 mg (3 mL) inhalation Q4H PRN 04/03/22 (0.083 %) solution for nebulization shortness of breath or wheezing #75 mL nebulizers (Aeroneb Go Nebulizer) #1 ea 04/03/22 prednisone 20 mg tablet 40 mg PO DAILY #8 tabs 02/03/23 Allergies Allergy/AdvReac Type Severity Reaction Status Date / Time azithromycin AdvReac Mild Nausea Verified 02/04/23 19:25 codeine AdvReac Mild Nausea Verified 02/04/23 19:25 erythromycin base AdvReac Mild Nausea Verified 02/04/23 19:25 ibuprofen AdvReac Mild Nausea Verified 02/04/23 19:25 lisinopril AdvReac Mild cough Verified 02/04/23 19:25 NSAIDS (Non-Steroidal AdvReac Mild Nausea Verified 02/04/23 19:25 Anti-Inflamma General Stated Complaint: Diabetes MONICA: 3 Review of Systems Narrative: see HPI PFSH All Active Problems (Updated 02/24/23 @ 03:10 by Yashira Saleh MD) Gout (Chronic) Gouty arthritis of toe of right foot (Acute) Edema (Acute) Hyperglycemia (Acute) Joint pain (Acute) Liver cirrhosis secondary to nonalcoholic steatohepatitis ([place]) (Acute) Chronic diarrhea (Acute) Epigastric pain (Acute) Hyperplastic colon polyp (Acute) ASCVD (arteriosclerotic cardiovascular disease) (Acute) 10/15 anterolat NSTE MO; stent x 4; 10/15 echo-EF 55%; inf.wall hypokinesis; mild Anxiety (Acute) after MO decreased memory/concentration--[facility] neurology COPD (chronic obstructive pulmonary disease) (Acute) continues to smoke Depressive disorder (Acute) fatigue Diabetic peripheral neuropathy associated with type 2 diabetes mellitus (Acute 03/03/16) Essential hypertension (Acute 05/03/13) Urinary, incontinence, stress female (Acute 09/13/13) Heart murmur (Acute 09/13/13) 10/21 echo LVEF 70% with LVH, aoritc valve thickened but opens well (no signif aortic stenosis) [facility] Echo 02/05/19 - LVH (mild-mod), EeF= 60-65%, systolic function normal, ascending aorta mildly dilated Hyperlipidemia (Acute 12/18/12) Morbid obesity (Acute) Numbness and tingling in right hand (Acute 03/03/16) Obstructive sleep apnea syndrome (Acute 03/27/10) [facility] sleep lab Pap smear abnormality of cervix with LGSIL (Acute) LGSIL +HPV; BX darcie I Postmenopausal bleeding (Acute 09/21/11) atypical endometrial hyperplasia Sciatica (Acute 07/04/13) left sciatica, MRI [facility] 07/22/13: L3-4 disc extrusion Skin tags, multiple acquired (Acute 02/15/16) Smoker (Acute) Type II diabetes mellitus, uncontrolled (Acute) Asthma (Chronic) Status post arthroscopy of left knee (Acute) History of section (Acute) Family history of malignant neoplasm of breast (Acute 09/11/14) Fever (Acute) She is febrile and has both abdominal and chest symptoms. We will send to the emergency room. Upper respiratory infection (Acute) Hyperglycemia (Acute) Acute bronchospasm (Acute) Seasonal allergies (Acute) History of COPD (Acute) Fatty liver (Acute) Diverticulosis (Acute) Constipation (Acute) Incontinence (Acute) Pedal edema (Acute) Varicose veins of lower extremity (Acute) Bipolar disorder (Chronic) Compliant with therapeutic regimen (Acute) Caren, oral (Acute) Allergic rhinitis (Acute) Medical History Anxiety Atherosclerotic cardiovascular disease COPD (chronic obstructive pulmonary disease) Depression Heart murmur History of renal carcinoma Hx of malignant neoplasm of eye Hyperlipidemia Hypertension Morbid obesity with BMI of 40.0-44.9, adult Plantar fasciitis of left foot Sleep apnea Stress incontinence in female Surgical History Arthroplasty of knee athroscopy not arthroplasty. Cervical Procedure BX DARCIE I section (~1981) H/O esophagogastroduodenoscopy (~03/10/21) S/P colonoscopy (~03/10/21) Stent placement X 4 TO LCX-1995 Family History Mother Personal history of malignant neoplasm UTERINE CA; HYSTERECTOMY AGE 76 Uterine cancer Hysterectomy at 76 Father Heart disease Brother Diabetes Cancer Brother No problems noted. Brother No problems noted. Social History Smoking/Tobacco Use Status: Current every day Tobacco Type: cigarettes Smoking packs per day: 1 Smoking cigarettes per day: 20.0 Smoking risk assessment performed?: Yes Alcohol Intake: current Alcohol Intake frequency: holidays/special occasions only Drug use: Never Substance use type: does not use Household members: significant other Housing: house Communication Needs: None Do you need help understanding health information?: Rarely Pets and animals: Yes Pets and animals: dog(s) Do you think of yourself as: straight/heterosexual Current gender identity: female What is your relationship status?: living with partner How often do you talk on the phone with friends or family?: three or more times per week How often do you get together with friends or relatives?: decline to answer How often do you attend faith or druze services?: decline to answer Do you belong to any clubs or organized social groups?: no Panel score (0-1 are the most socially isolated patients): 2 What type of physical activity do you participate in: none Duration: < 15 minutes/day Frequency: daily Katerina/Buddhist: none Special katerina needs: No Seatbelt use: sometimes Helmet use: Yes Helmet use: always Drive intox or ride w/intox driver's education instructor: No Do you feel safe at home: Yes Do you feel safe in your relationship?: Yes Exam Narrative Exam Narrative: General: Alert, well appearing, well nourished, in no acute distress. Head: Normocephalic, atraumatic Neck: Trachea midline, Neck supple. ENT: MMM. Cardiac: RRR, no murmurs appreciated Resp: No respiratory distress. CTAB. Abd: Soft, non-distended, nontender : No suprapubic tenderness. Extremities: No deformities. No peripheral edema. Bandage to right knee. Neurologic: GCS 15. Moves all extremities freely against gravity Course Vital Signs Vital signs: Vital Signs Temperature 36.9 C 02/24/23 01:47 Pulse 95 H 02/24/23 01:47 Respiratory Rate 24 02/24/23 01:47 Blood Pressure 147/64 H 02/24/23 01:47 Pulse Oximetry 97 02/24/23 01:47 Temperature 36.9 C 02/24/23 01:47 Temperature Source Oral 02/24/23 01:47 Pulse 95 H 02/24/23 01:47 Respiratory Rate 24 02/24/23 01:47 Blood Pressure 147/64 H 02/24/23 01:47 Pulse Oximetry 97 02/24/23 01:47 Oxygen Delivery Method Room Air 02/24/23 01:47 Oxygen Flow Rate 0 02/24/23 01:47
[2023-02-24 02:34] LABS: Abs Immature Grans 0.04 10^3/uL (0.0-0.06); Absolute Basophil Count 0.03 10^3/uL (0.0-0.2); Absolute Monocyte Count 0.11 10^3/uL (0.1-0.8); Absolute Neutrophil Count 8.62 10^3/uL (1.2-6.7); Basophils % 0.3; HCT 46.6 % (36.0-46.0); HGB 15.2 g/dL (11.2-15.7); Immature Grans % 0.4; Lymphocytes % 9.3; MCH 27.8 pg (27.0-33.0); MCHC 32.6 % (32.0-36.0); MCV 85 fL (80-95); MPV 9.5 fL (8.0-11.0); Monocytes % 1.1; Neutrophils % 88.9; Platelet Count 469 10^3/uL (130-400); RBC 5.47 10^6/uL (3.93-5.22); RDW 14.7 % (11.7-14.6); RDW-SD 45.5 fL
[2023-02-24] MEDS: Ketorolac 15 MG/ML VIAL IVP (02:40)
[2023-02-24] MEDS: Normal Saline 1,000 ML 1000 ML IV (02:40)
[2023-02-24 02:50] LABS: ALT 37 U/L (14-59); AST 20 U/L (15-37); Albumin 4.2 g/dL (3.4-5.0); Alkaline Phosphatase 125 U/L (46-116); Anion Gap 10.8 mmol/L (3-11); BUN 23 mg/dL (7-18); Bilirubin, Total 0.6 mg/dL (0.2-1.0); CO2 26.2 mmol/L (21.0-32.0); CREATININE 1.5 mg/dL (0.55-1.02); Calcium 9.8 mg/dL (8.5-10.1); Chloride 101 mmol/L (98-107); Estimated GFR 38.91 (mL/min/1.73m2); Glucose 372 mg/dL (74-106); Potassium 4.8 mmol/L (3.5-5.1); Sodium 138 mmol/L (136-145); Total Protein 8.5 g/dL (6.4-8.2)
[2023-02-24] MEDS: Insulin Aspart 100 UNITS/ML UNIT SC (03:20)
[2023-02-24 03:27] VITALS: BP 132/64; PULSE 77; RESP 19; TEMP 36.6; O2SAT 94
== END 2023-02-24 03:35 | disposition home or self-care (01) ==
PROVIDERS: Emergency Provider Student in an Organized Health Care Education/Training Program; PCP Family Medicine
DX: E11.65 Type 2 diabetes mellitus with hyperglycemia (principal)
CPT/HCPCS: 36416; 80053; 82962; 96361; 96372; 96374; 99284; 85025; J1815; J1885

== ENCOUNTER 2023-03-20 11:59 | Outpatient (CLI) | payer MEDICARE, SELFPAY ==
--- NOTE | 2023-03-20 09:15 | DI.RAD_ITS ---
Exam(s) XR KNEE RT 3V AP,LAT,PILO EXAM: XR KNEE RT 3V AP,LAT,PILO CLINICAL HISTORY: RIGHT KNEE. TECHNIQUE: 2D digital imaging was performed. Three views. COMPARISON: CR,XR XR KNEE RT 3V AP,LAT,PILO from 02/03/2023 FINDINGS: BONES: No acute fracture is present. No bony destructive lesion is seen. JOINTS: The knee is normally aligned. No joint effusion is seen. The joint spaces are maintained. Minimal periarticular spurring. SOFT TISSUE: Normal. IMPRESSION: Minimal degenerative changes. DATA REPOSITORY: RADIATION DOSE DELIVERED:
== END 2023-03-20 12:00 | disposition home or self-care (01) ==
LOC: DIORS 11:59
PROVIDERS: PCP Family Medicine; Referring Provider Family Medicine
DX: M25.561 Pain in right knee (principal); M23.91 Unspecified internal derangement of right knee; M17.11 Unilateral primary osteoarthritis, right knee; E11.9 Type 2 diabetes mellitus without complications; I25.2 Old myocardial infarction; Z95.5 Presence of coronary angioplasty implant and graft
CPT/HCPCS: 20610; 73562; 99214; J1030

== ENCOUNTER → 2023-04-12 02:16 | Outpatient (CLI) | payer MEDICARE, SELFPAY ==
--- NOTE | 2023-04-12 07:00 | DI.MRI_ITS ---
Exam(s) MR LOWER JOINT RT WO EXAM: MR LOWER JOINT RT WO CLINICAL HISTORY: PAIN,djd rt knee, internal derangement, m23.91,m17.11 TECHNIQUE: Multiplanar multisequence MRI of the knee was performed. COMPARISON: CR XR KNEE RT 3V AP,LAT,PILO from 03/20/2023 FINDINGS: EFFUSION: There is a moderate size knee joint effusion. No obvious loose intra-articular bodies. No Bruce cyst in the popliteal fossa. There is subcutaneous edema over the anterior aspect and anterio r lateral-anteromedial aspect both sides of the knee. There is a thin defined fluid collection in th e deep subcutaneous tissues anterior to the anterior tibial tubercle which measures 1 cm wide by 2 cm cephalocaudal by 0.2 cm thick. There is no intraosseous signal abnormality in the immediately subja cent anterior tibial tubercle nor in the patellar ligament. There is a small amount of fluid in the inferior Hoffa fat pad interposed between the anterior tibial tubercle and posterior aspect of the di stal patellar ligament. MARROW:No evidence of fracture. There is some mild bone contusion signal in both sides the tibial pl ateau as well as mild bone edema subarticular aspect of both femoral condyles. There are no signific ant osseous lesions. PATELLOFEMORAL COMPARTMENT: The quadriceps tendon is intact. The patellar ligament is intact. There is some signal abnormality in the retropatellar cartilage over the mid-medial facet with mild t hinning and subarticular bone edema in the posterior patella at this level. No intraosseous signal t o suggest recent patellar dislocation and there are no patellar retinacular tears evident. CRUCIATE LIGAMENTS: The anterior cruciate ligament is intact.The posterior cruciate ligament is intac t. MEDIAL COMPARTMENT/MEDIAL MENISCUS: The posterior horn of the medial meniscus is intact. There is ab normal signal in the anterior aspect of the anterior horn consistent with meniscal tearing at this le braden and there is subjacent edema in the anterior aspect of medial tibial plateau at this level.. There is significant thinning of the articular cartilage over the main weight-bearing surface of the medial femoral condyle, without evidence of osteochondral defect but with some mild subarticular roe a in the medial femoral condyle. Also small marginal osteophytes in the medial condyle. Degenerativ e subarticular cyst is noted in the posterior aspect the tibial plateau subjacent to the PCL attachme nt site. MEDIAL COLLATERAL LIGAMENT: Intact LATERAL COMPARTMENT/LATERAL MENISCUS: There is no evidence of lateral meniscal tear.There is mild sub articular edema in the outer aspect of the lateral femoral condyle but without subjacent cartilage th inning. Small marginal osteophytes noted in the lateral condyle. ILIOTIBIAL BAND: Intact LATERAL COLLATERAL LIGAMENT COMPLEX: The fibular collateral ligament is intact. The biceps femoris t endon is intact.Popliteus muscle and tendon are intact. IMPRESSION: 1. There is tear of the anterior horn of the medial meniscus with mild extrusion and with subjacent i ntraosseous edema in the anterior aspect of the medial tibial plateau at this level. The posterior h orn of the medial meniscus is intact. There is significant cartilage loss over the main weight-beari ng surface of the medial femoral condyle with mild subarticular edema. No formed osteochondral defec ts seen. 2. There are no tears of the lateral meniscus and minimal degenerative changes in the lateral compart ment noted. 3. There is significant chondromalacia of the retropatellar cartilage over the mid facet level with m ild subarticular edema in the posterior patella at this level. 4. There are no cruciate nor collateral ligament tears. Iliotibial band intact. 5. anterior subcutaneous soft tissue edema and small thin fluid collection is also noted anterior to the anterior tibial tubercle. There is no intraosseous signal abnormality at this level nor abnormal signal in the inferior patellar ligament. Both the patellar ligament as well as the visualized quad riceps tendon appear intact DATA REPOSITORY:
== END ==
PROVIDERS: PCP Family Medicine; Visit Provider Student in an Organized Health Care Education/Training Program
DX: M23.242 Derangement of anterior horn of lateral meniscus due to old tear or injury, left knee
CPT/HCPCS: 73721

== ENCOUNTER → 2023-04-14 07:54 | Outpatient (BNVA) | payer MEDICARE, SELFPAY | PROVIDERS: PCP Family Medicine; Referring Provider Family Medicine; Visit Provider Student in an Organized Health Care Education/Training Program | DX: M17.11 Unilateral primary osteoarthritis, right knee (principal); M23.91 Unspecified internal derangement of right knee; E11.9 Type 2 diabetes mellitus without complications | CPT/HCPCS: 99215 ==

== ENCOUNTER 2023-05-03 09:54 | Emergency (ER) | payer MEDICARE, MEDICAID, SELFPAY ==
[2023-05-03 09:59] VITALS: BP 158/85; PULSE 82; RESP 20; TEMP 36.8; O2SAT 98
[2023-05-03 10:34] LABS: Source Nasal/Nares
--- NOTE | 2023-05-03 10:37 | W.ED.GENAD ---
Discharge Plan Disposition Patient Disposition: Home Condition: Stable Discharge Details Clinical Impression: URI (upper respiratory infection), Asthma exacerbation in COPD Primary Care Provider: Luis E Narayan ED Provider: Nathan Gongora Home Meds and New Rx's Prescriptions: New prednisone 20 mg tablet 40 mg PO DAILY Qty: 8 0RF ondansetron 4 mg tablet,disintegrating 4 mg PO Q8H PRN (Reason: nausea and vomiting) Qty: 10 0RF Continued budesonide-formoterol [Symbicort] 80-4.5 mcg/actuation HFA aerosol inhaler 2 puff Inhalation BID Qty: 3 11RF (DME) Aerochamber MV spacer See Dose Instructions .Route .MEDSUPPLY Qty: 1 0RF Dose Instruction: As directed Rx Instructions: As directed fluticasone propionate [Flonase Allergy Relief] 50 mcg/actuation spray,suspension 1 spray KUMAR BID PRN (Reason: nasal congestion) Qty: 9.9 3RF Rx Instructions: administer into each nostril loratadine [Claritin] 10 mg tablet 10 mg PO DAILY lorazepam 1 mg tablet 0.5 - 1 mg PO BID PRN (Reason: anxiety) Qty: 30 0RF Rx Instructions: 12/06/ PT USES 1 MG AT HS AND 0.5 MG AT NOON nitroglycerin 0.4 mg tablet, sublingual 0.4 mg Sublingual PRN Qty: 25 2RF Rx Instructions: 1 TAB SL PRN melatonin 10 mg capsule 10 mg PO HS PRN Adult 50 Plus Probiotic 4 billion cell capsule 4,000 mmu cells PO DAILY Qty: 30 0RF Rx Instructions: administer with a meal pantoprazole [Protonix] 40 mg tablet,delayed release (DR/EC) 40 mg PO DAILY Qty: 30 12RF acetaminophen [Tylenol] 325 MG tablet 650 mg PO Q4H PRN CPAP (DME) lancets [OneTouch Delica Lancets] 1 EACH misc 1 ea Intradermal BID Qty: 200 Rx Instructions: DX: 250.00 (DME) OneTouch Ultra Test 1 EACH strip 1 strip Miscellaneous DAILY Qty: 100 Rx Instructions: DX: 250.00 oral meds amlodipine 5 mg tablet 5 mg PO DAILY Qty: 90 4RF Rx Instructions: 1 TAB DAILY clopidogrel [Plavix] 75 mg tablet 75 mg PO DAILY Qty: 90 4RF Metoprolol Succinate 25 MG TAB.ER.24H 25 mg PO DAILY Qty: 90 4RF Rx Instructions: 1 TAB DAILY simvastatin 10 mg tablet 10 mg PO DAILY Qty: 90 4RF Rx Instructions: 1 TAB DAILY losartan [Cozaar] 100 mg tablet 100 mg PO DAILY Qty: 90 4RF Rx Instructions: 1 TAB DAILY albuterol sulfate [Ventolin HFA] 90 mcg/actuation HFA aerosol inhaler 2 puff IH Q4H PRN (Reason: shortness of breath or wheezing) Qty: 8.5 11RF sucralfate 100 mg/mL suspension 10 ml PO QID Rx Instructions: swish in mouth and swallow; use after food/drink buspirone 30 mg tablet 30 mg PO BID aspirin 81 mg Tablet,Delayed Release (Dr/Ec) 81 mg PO DAILY lamotrigine 100 mg tablet 100 mg PO QAM Patient Comments: TAKE ONE TABLET BY MOUTH TWICE A DAY trazodone 50 mg tablet 100 mg PO HS PRN Rx Instructions: 1-tab at HS PRN simethicone 125 mg tablet,chewable 125 mg PO TID PRN (Reason: abdominal distention) Qty: 30 0RF (DME) nebulizers [Aeroneb Go Nebulizer] Misc See Rx Instructions .Route Qty: 1 0RF Rx Instructions: As directed insulin glargine 100 unit/mL Cartridge 10 unit SUBCUT BID metformin 500 mg tablet 1,000 mg PO BID Hold Instructions: Resume on 06/05/22. Please hold metformin for 48 hours (DME) blood-glucose meter [FreeStyle Lite Meter] Kit See Rx Instructions .ROUTE .MEDSUPPLY Qty: 1 0RF Rx Instructions: As directed (DME) FreeStyle Lite Strips Strip See Rx Instructions .ROUTE .MEDSUPPLY Qty: 10 0RF Rx Instructions: As directed No Action prednisone 20 mg tablet 20 mg PO DAILY Qty: 15 0RF ipratropium-albuterol 0.5 mg-3 mg(2.5 mg base)/3 mL solution for nebulization 3 ml inhalation Q4H PRNQty: 90 0RF Discharge Instructions Instructions: Upper Respiratory Infection (ED), COPD (Chronic Obstructive Pulmonary Disease) (ED) Additional Instructions: Please use albuterol inhaler as prescribed for wheezing. Take prednisone as prescribed. Please allow for plenty of rest and drink plenty of fluids to stay hydrated. Please contact your primary care physician to arrange follow-up. Return to the ER immediately for any worsening or new concerning symptoms. Referrals: Luis E Narayan [Primary Care Provider] - Discharge Data Discharge Date/Time-TO BE ENTERED AT DEPARTURE: 05/03/23 14:09 Medical Decision Making 1045 --62-year-old female with multimedical problem including history of COPD, here with cough and congestion with fatigue over the past 5 to 6 days. Family member with parainfluenza virus. Patient is saturating well. She is not in respiratory distress but does have bilateral wheeze. Plan to treat with DuoNeb and prednisone. Concern for acute respiratory illness with acute exacerbation of COPD. Suspect viral etiology versus bacterial pneumonia. Plan to obtain chest x-ray. I will check COVID testing. 1240 --patient reassessed and breathing much better with improved wheeze. COVID testing is negative. Chest x-ray reviewed and interpreted by radiology:Heart size is normal. The mediastinum is not widened. Lungs are clear. No infiltrates nor pleural effusions. Plan to treat for viral URI with COPD exacerbation. HPI General Mode of arrival: ambulatory. Date/Time Provider Initiated Documentation: 05/03/23 10:04. Limitations to Documentation: no limitations. Information obtained by: patient. HPI Narrative: 62-year-old female with multiple medical problems including history of COPD, ASCVD, Trevino, hypertension, morbid obesity, diabetes, here with chief complaint of respiratory illness. Patient notes cough with shortness of breath and associated ear fullness with sinus congestion, generalized fatigue over the past 5 to 6 days. Patient has a grandson who is currently hospitalized with parainfluenza and bacterial pneumonia. Patient notes she has been using her albuterol inhaler for wheezing. Related Data Home Medications Medication Instructions Recorded Confirmed Cpap 10/24/12 05/06/23 acetaminophen 325 mg tablet 650 mg PO Q4H PRN 10/24/12 05/06/23 (Tylenol) lancets 33 gauge (Loksys SolutionsTouch Delica #200 ea 12/15/12 05/06/23 Lancets) blood sugar diagnostic ([employer] #100 strips 01/24/14 05/06/23 Ultra Test strips) budesonide-formoterol HFA 80 2 puff inhalation BID #3 grams 05/01/18 05/06/23 mcg-4.5 mcg/actuation aerosol inhaler (Symbicort) inhalational spacing device #1 ea 05/01/18 05/06/23 (Aerochamber MV spacer) nitroglycerin 0.4 mg sublingual 0.4 mg sublingual PRN #25 tab-caps 05/04/18 05/06/23 tablet amlodipine 5 mg tablet 5 mg PO DAILY #90 tab-caps 07/27/18 05/06/23 clopidogrel 75 mg tablet (Plavix) 75 mg PO DAILY #90 tabs 07/27/18 05/06/23 simvastatin 10 mg tablet 10 mg PO DAILY #90 tab-caps 07/31/18 05/06/23 losartan 100 mg tablet (Cozaar) 100 mg PO DAILY #90 tab-caps 12/27/18 05/06/23 fluticasone propionate 50 1 spray intranasal BID PRN nasal 02/03/19 05/06/23 mcg/actuation nasal congestion #9.9 grams spray,suspension (Flonase Allergy Relief) loratadine 10 mg tablet (Claritin) 10 mg PO DAILY 02/03/19 05/06/23 lorazepam 1 mg tablet 0.5 - 1 mg (0.5 - 1 x 1 mg) PO BID 02/19/19 05/06/23 PRN anxiety #30 tabs albuterol sulfate 90 mcg/actuation 2 puff inhalation Q4H PRN 08/29/19 05/06/23 aerosol inhaler (Ventolin HFA) shortness of breath or wheezing #8.5 grams metformin 500 mg tablet 1,000 mg PO BID 09/12/19 05/06/23 aspirin 81 mg tablet,delayed 81 mg PO DAILY 08/17/20 05/06/23 release lamotrigine 100 mg tablet 100 mg PO QAM 08/17/20 05/06/23 trazodone 50 mg tablet 100 mg PO HS PRN 08/17/20 05/06/23 blood sugar diagnostic (FreeStyle #10 ea 12/06/20 05/06/23 Lite Strips) blood-glucose meter (FreeStyle #1 ea 12/06/20 05/06/23 Lite Meter kit) melatonin 10 mg capsule 10 mg PO HS PRN 02/23/21 05/06/23 lactobacillus combination no.9 4 4,000 mmu cells PO DAILY #30 caps 10/13/21 05/06/23 billion cell capsule (Adult 50 Plus Probiotic) simethicone 125 mg chewable tablet 125 mg PO TID PRN abdominal 11/11/21 05/06/23 distention #30 tabs pantoprazole 40 mg tablet,delayed 40 mg PO DAILY #30 tabs 11/25/21 05/06/23 release (Protonix) nebulizers (Aeroneb Go Nebulizer) #1 ea 04/03/22 05/06/23 insulin glargine 100 unit/mL 10 unit subcut BID 01/07/23 05/06/23 subcutaneous cartridge buspirone 30 mg tablet 30 mg PO BID 03/16/23 05/06/23 sucralfate 100 mg/mL oral 10 ml PO QID 03/16/23 05/06/23 suspension ondansetron 4 mg disintegrating 4 mg PO Q8H PRN nausea and 05/03/23 05/06/23 tablet vomiting #10 tabs prednisone 20 mg tablet 40 mg (2 x 20 mg) PO DAILY #8 tabs 05/03/23 05/06/23 ipratropium 0.5 mg-albuterol 3 mg 3 ml inhalation Q4H PRN #90 mL 05/06/23 (2.5 mg base)/3 mL nebulization soln prednisone 20 mg tablet 20 mg PO DAILY #15 tabs 05/06/23 Previous Rx's Medication Instructions Recorded budesonide-formoterol HFA 80 2 puff inhalation BID #3 grams 05/01/18 mcg-4.5 mcg/actuation aerosol inhaler (Symbicort) inhalational spacing device #1 ea 05/01/18 (Aerochamber MV spacer) nitroglycerin 0.4 mg sublingual 0.4 mg sublingual PRN #25 tab-caps 05/04/18 tablet amlodipine 5 mg tablet 5 mg PO DAILY #90 tab-caps 07/27/18 clopidogrel 75 mg tablet (Plavix) 75 mg PO DAILY #90 tabs 07/27/18 simvastatin 10 mg tablet 10 mg PO DAILY #90 tab-caps 07/31/18 losartan 100 mg tablet (Cozaar) 100 mg PO DAILY #90 tab-caps 12/27/18 fluticasone propionate 50 1 spray intranasal BID PRN nasal 02/03/19 mcg/actuation nasal congestion #9.9 grams spray,suspension (Flonase Allergy Relief) lorazepam 1 mg tablet 0.5 - 1 mg (0.5 - 1 x 1 mg) PO BID 02/19/19 PRN anxiety #30 tabs albuterol sulfate 90 mcg/actuation 2 puff inhalation Q4H PRN 08/29/19 aerosol inhaler (Ventolin HFA) shortness of breath or wheezing #8.5 grams blood sugar diagnostic (FreeStyle #10 ea 12/06/20 Lite Strips) blood-glucose meter (FreeStyle #1 ea 12/06/20 Lite Meter kit) lactobacillus combination no.9 4 4,000 mmu cells PO DAILY #30 caps 10/13/21 billion cell capsule (Adult 50 Plus Probiotic) simethicone 125 mg chewable tablet 125 mg PO TID PRN abdominal 11/11/21 distention #30 tabs pantoprazole 40 mg tablet,delayed 40 mg PO DAILY #30 tabs 11/25/21 release (Protonix) nebulizers (Aeroneb Go Nebulizer) #1 ea 04/03/22 ondansetron 4 mg disintegrating 4 mg PO Q8H PRN nausea and 05/03/23 tablet vomiting #10 tabs prednisone 20 mg tablet 40 mg (2 x 20 mg) PO DAILY #8 tabs 05/03/23 ipratropium 0.5 mg-albuterol 3 mg 3 ml inhalation Q4H PRN #90 mL 05/06/23 (2.5 mg base)/3 mL nebulization soln prednisone 20 mg tablet 20 mg PO DAILY #15 tabs 05/06/23 Allergies Allergy/AdvReac Type Severity Reaction Status Date / Time azithromycin AdvReac Mild Nausea Verified 05/06/23 12:34 codeine AdvReac Mild Nausea Verified 05/06/23 12:34 erythromycin base AdvReac Mild Nausea Verified 05/06/23 12:34 ibuprofen AdvReac Mild Nausea Verified 05/06/23 12:34 lisinopril AdvReac Mild cough Verified 05/06/23 12:34 NSAIDS (Non-Steroidal AdvReac Mild Nausea Verified 05/06/23 12:34 Anti-Inflamma General Stated Complaint: RespSymp MONICA: 4 Review of Systems Constitutional Constitutional: Reports as per HPI, Reports body ache(s), Reports fatigue and Denies fever(s) Respiratory Respiratory: Reports as per HPI Endocrine Endocrine: Reports fatigue PFSH All Active Problems (Updated 05/06/23 @ 17:28 by Tata Vasquez MD) Acute exacerbation of chronic obstructive pulmonary disease (COPD) (Acute) Acute viral syndrome (Acute) Asthma exacerbation in COPD (Acute) URI (upper respiratory infection) (Acute) Degenerative joint disease of right knee (Acute) Mild 40 mg Depo: 03/20/23 Internal derangement of right knee (Acute) Right knee pain (Acute) Liver cirrhosis secondary to nonalcoholic steatohepatitis (TREVINO) (Acute) Chronic diarrhea (Acute) Epigastric pain (Acute) Hyperplastic colon polyp (Acute) ASCVD (arteriosclerotic cardiovascular disease) (Acute) 10/15 anterolat NSTE TN; stent x 4; 10/15 echo-EF 55%; inf.wall hypokinesis; mild Anxiety (Acute) after TN decreased memory/concentration--[facility] neurology COPD (chronic obstructive pulmonary disease) (Acute) continues to smoke Depressive disorder (Acute) fatigue Diabetic peripheral neuropathy associated with type 2 diabetes mellitus (Acute 03/03/16) Essential hypertension (Acute 05/03/13) Urinary, incontinence, stress female (Acute 09/13/13) Heart murmur (Acute 09/13/13) 10/21 echo LVEF 70% with LVH, aoritc valve thickened but opens well (no signif aortic stenosis) [facility] Echo 02/05/19 - LVH (mild-mod), EeF= 60-65%, systolic function normal, ascending aorta mildly dilated Hyperlipidemia (Acute 12/18/12) Morbid obesity (Acute) Numbness and tingling in right hand (Acute 03/03/16) Obstructive sleep apnea syndrome (Acute 03/27/10) [facility] sleep lab Pap smear abnormality of cervix with LGSIL (Acute) LGSIL +HPV; BX darcie I Postmenopausal bleeding (Acute 09/21/11) atypical endometrial hyperplasia Sciatica (Acute 07/04/13) left sciatica, MRI [facility] 07/22/13: L3-4 disc extrusion Skin tags, multiple acquired (Acute 02/15/16) Smoker (Acute) Type II diabetes mellitus, uncontrolled (Acute) Asthma (Chronic) Status post arthroscopy of left knee (Acute) History of section (Acute) Family history of malignant neoplasm of breast (Acute 09/11/14) Fever (Acute) She is febrile and has both abdominal and chest symptoms. We will send to the emergency room. Upper respiratory infection (Acute) Hyperglycemia (Acute) Acute bronchospasm (Acute) Seasonal allergies (Acute) History of COPD (Acute) Fatty liver (Acute) Diverticulosis (Acute) Constipation (Acute) Incontinence (Acute) Pedal edema (Acute) Varicose veins of lower extremity (Acute) Bipolar disorder (Chronic) Compliant with therapeutic regimen (Acute) Caren, oral (Acute) Allergic rhinitis (Acute) Medical History Hx of malignant neoplasm of eye History of renal carcinoma Hypertension COPD (chronic obstructive pulmonary disease) Hyperlipidemia Heart murmur Atherosclerotic cardiovascular disease Depression Anxiety Stress incontinence in female Morbid obesity with BMI of 40.0-44.9, adult Plantar fasciitis of left foot Sleep apnea Surgical History H/O esophagogastroduodenoscopy (~03/10/21) S/P colonoscopy (~03/10/21) Stent placement X 4 TO [id number] section (~1981) Cervical Procedure BX DARCIE I Arthroplasty of knee athroscopy not arthroplasty. Family History Mother Personal history of malignant neoplasm UTERINE CA; HYSTERECTOMY AGE 76 Uterine cancer Hysterectomy at 76 Father Heart disease Brother Diabetes Cancer Brother No problems noted. Brother No problems noted. Social History Smoking/Tobacco Use Status: Current every day Tobacco Type: cigarettes Smoking packs per day: 1 Smoking cigarettes per day: 20.0 Smoking risk assessment performed?: Yes Alcohol Intake: current Alcohol Intake frequency: holidays/special occasions only Drug use: Never Substance use type: does not use Household members: significant other Housing: house Communication Needs: None Do you need help understanding health information?: Rarely Pets and animals: Yes Pets and animals: dog(s) Do you think of yourself as: straight/heterosexual Current gender identity: female What is your relationship status?: living with partner How often do you talk on the phone with friends or family?: three or more times per week How often do you get together with friends or relatives?: decline to answer How often do you attend cheondoism or quaker services?: decline to answer Do you belong to any clubs or organized social groups?: no Panel score (0-1 are the most socially isolated patients): 2 What type of physical activity do you participate in: none Duration: < 15 minutes/day Frequency: daily Katerina/Anglican: none Special katerina needs: No Seatbelt use: sometimes Helmet use: Yes Helmet use: always Drive intox or ride w/intox cdl b driver: No Do you feel safe at home: Yes Do you feel safe in your relationship?: Yes Exam Const General: cooperative and no acute distress HENMT General nose exam: external nose normal Mouth: moist mucous membranes Throat: posterior oropharynx normal Eyes Conjunctivae: normal conjunctivae Sclera: normal sclerae Neck Neck: trachea midline and supple Resp Auscultation: no rales, no rhonchi and wheezes expiratory wheezes Cardio Rate: regular rate and not tachycardic Rhythm: regular rhythm GI Palpation: soft, not firm, no guarding, no masses, not rigid and nontender Skin General skin exam: no rashes or lesions noted Neuro General: patient alert, patient awake and tone normal Extrem General: no edema Psych Appearance: grossly normal Mental Status: mental status grossly normal Course Vital Signs Vital signs: Vital Signs Temperature 36.8 C 05/03/23 09:59 Pulse 82 05/03/23 09:59 Respiratory Rate 20 05/03/23 09:59 Blood Pressure 158/85 H 05/03/23 09:59 Pulse Oximetry 98 05/03/23 09:59 Temperature 36.8 C 05/03/23 09:59 Temperature Source Oral 05/03/23 09:59 Pulse 82 05/03/23 09:59 Respiratory Rate 20 05/03/23 09:59 Respiratory Effort Normal 05/03/23 10:06 Blood Pressure 158/85 H 05/03/23 09:59 Blood Pressure Position Sitting 05/03/23 09:59 Pulse Oximetry 98 05/03/23 09:59 Oxygen Delivery Method Room Air 05/03/23 09:59 Oxygen Flow Rate 0 05/03/23 09:59 Lab/Test Results Lab/Test Results: Laboratory Tests Range/Units 05/03/23 10:11 COVID-19 Source Nasal/Nares
[2023-05-03] MEDS: Albuterol/Ipratropium 3 ML UPD VIAL UPD ×2 (10:43→12:09)
[2023-05-03] MEDS: predniSONE 20 MG TAB 40 MG PO (10:43)
[2023-05-03 11:05] LABS: COVID-19 PCR Negative (Negative)
--- NOTE | 2023-05-03 11:07 | DI.RAD_ITS ---
Exam(s) XR CHEST 2V PA LATERAL EXAM: XR CHEST 2V PA LATERAL CLINICAL HISTORY: cough. TECHNIQUE: 2D digital imaging was performed. COMPARISON: CR,XR XR CHEST 2V PA LATERAL from 04/03/2022 FINDINGS: 2 views: Heart size is normal. The mediastinum is not widened. Lungs are clear. No infiltrates nor pleural effusions. IMPRESSION: No acute pulmonary findings. DATA REPOSITORY: RADIATION DOSE DELIVERED:
[2023-05-03 14:09] VITALS: BP 132/80; PULSE 83; RESP 18; TEMP 36.7; O2SAT 93
== END 2023-05-03 14:09 | disposition home or self-care (01) ==
PROVIDERS: Emergency Provider Student in an Organized Health Care Education/Training Program; PCP Family Medicine
DX: J44.1 Chronic obstructive pulmonary disease with (acute) exacerbation (principal); I25.10 Atherosclerotic heart disease of native coronary artery without angina pectoris; I25.2 Old myocardial infarction; I10 Essential (primary) hypertension; Z95.5 Presence of coronary angioplasty implant and graft; Z79.01 Long term (current) use of anticoagulants; J06.9 Acute upper respiratory infection, unspecified
CPT/HCPCS: 87635; 94640; 99284; 71046; 99283; J7512; J7620

== ENCOUNTER 2023-05-06 14:27 | Emergency (ER) | payer MEDICARE, MEDICAID, SELFPAY ==
[2023-05-06 14:49] VITALS: BP 170/88; PULSE 78; RESP 18; TEMP 36.5; O2SAT 98
--- NOTE | 2023-05-06 15:15 | DI.RAD_ITS ---
Exam(s) XR CHEST 2V PA LATERAL EXAM: XR CHEST 2V PA LATERAL CLINICAL HISTORY: SOB, fever, rales, wheeze TECHNIQUE: 2D digital imaging was performed. COMPARISON: CR,XR XR CHEST 2V PA LATERAL from 04/03/2022 CR XR CHEST 2V PA LATERAL from 05/03/2023 FINDINGS: HEART: Normal size. Aorta: Ectatic. PULMONARY VASCULATURE: Normal. LUNGS: Clear. No visible infiltrates. PLEURAL SPACE: No pleural effusion or pneumothorax. BONE:Unremarkable for age. IMPRESSION: No acute abnormality. DATA REPOSITORY: RADIATION DOSE DELIVERED:
--- NOTE | 2023-05-06 15:15 | RT.EKG_ITS ---
APPROVED REPORT Exam: Resting ECG Reason for Exam: SOB Patient Location: E HR:69 bpm ECG Measurements Heart Rate 69 AXIS WV 150 P -12 QRSd 94 QRS 12 QT 391 T 64 QTc 419 Conclusion Sinus rhythm...normal P axis, V-rate 60- 99 No change vs 11/11/21
--- NOTE | 2023-05-06 15:48 | W.ED.GENAD ---
Discharge Plan Disposition Patient Disposition: Home Discharge Details Clinical Impression: Acute viral syndrome, Acute exacerbation of chronic obstructive pulmonary disease (COPD) Primary Care Provider: Luis E Narayan ED Provider: Tata Vasquez Home Meds and New Rx's Prescriptions: New prednisone 20 mg tablet 20 mg PO DAILY Qty: 15 0RF ipratropium-albuterol 0.5 mg-3 mg(2.5 mg base)/3 mL solution for nebulization 3 ml inhalation Q4H PRNQty: 90 0RF Continued budesonide-formoterol [Symbicort] 80-4.5 mcg/actuation HFA aerosol inhaler 2 puff Inhalation BID Qty: 3 11RF (DME) Aerochamber MV spacer See Dose Instructions .Route .MEDSUPPLY Qty: 1 0RF Dose Instruction: As directed Rx Instructions: As directed fluticasone propionate [Flonase Allergy Relief] 50 mcg/actuation spray,suspension 1 spray KUMAR BID PRN (Reason: nasal congestion) Qty: 9.9 3RF Rx Instructions: administer into each nostril loratadine [Claritin] 10 mg tablet 10 mg PO DAILY lorazepam 1 mg tablet 0.5 - 1 mg PO BID PRN (Reason: anxiety) Qty: 30 0RF Rx Instructions: 12/06/20 PT USES 1 MG AT HS AND 0.5 MG AT NOON nitroglycerin 0.4 mg tablet, sublingual 0.4 mg Sublingual PRN Qty: 25 2RF Rx Instructions: 1 TAB SL PRN melatonin 10 mg capsule 10 mg PO HS PRN Adult 50 Plus Probiotic 4 billion cell capsule 4,000 mmu cells PO DAILY Qty: 30 0RF Rx Instructions: administer with a meal pantoprazole [Protonix] 40 mg tablet,delayed release (DR/EC) 40 mg PO DAILY Qty: 30 12RF acetaminophen [Tylenol] 325 MG tablet 650 mg PO Q4H PRN CPAP (DME) lancets [OneTouch Delica Lancets] 1 EACH misc 1 ea Intradermal BID Qty: 200 Rx Instructions: DX: 250.00 (DME) OneTouch Ultra Test 1 EACH strip 1 strip Miscellaneous DAILY Qty: 100 Rx Instructions: DX: 250.00 oral meds amlodipine 5 mg tablet 5 mg PO DAILY Qty: 90 4RF Rx Instructions: 1 TAB DAILY clopidogrel [Plavix] 75 mg tablet 75 mg PO DAILY Qty: 90 4RF Metoprolol Succinate 25 MG TAB.ER.24H 25 mg PO DAILY Qty: 90 4RF Rx Instructions: 1 TAB DAILY simvastatin 10 mg tablet 10 mg PO DAILY Qty: 90 4RF Rx Instructions: 1 TAB DAILY losartan [Cozaar] 100 mg tablet 100 mg PO DAILY Qty: 90 4RF Rx Instructions: 1 TAB DAILY albuterol sulfate [Ventolin HFA] 90 mcg/actuation HFA aerosol inhaler 2 puff IH Q4H PRN (Reason: shortness of breath or wheezing) Qty: 8.5 11RF sucralfate 100 mg/mL suspension 10 ml PO QID Rx Instructions: swish in mouth and swallow; use after food/drink buspirone 30 mg tablet 30 mg PO BID aspirin 81 mg Tablet,Delayed Release (Dr/Ec) 81 mg PO DAILY lamotrigine 100 mg tablet 100 mg PO QAM Patient Comments: TAKE ONE TABLET BY MOUTH TWICE A DAY trazodone 50 mg tablet 100 mg PO HS PRN Rx Instructions: 1-tab at HS PRN simethicone 125 mg tablet,chewable 125 mg PO TID PRN (Reason: abdominal distention) Qty: 30 0RF (DME) nebulizers [Aeroneb Go Nebulizer] Misc See Rx Instructions .Route Qty: 1 0RF Rx Instructions: As directed insulin glargine 100 unit/mL Cartridge 10 unit SUBCUT BID prednisone 20 mg tablet 40 mg PO DAILY Qty: 8 0RF ondansetron 4 mg tablet,disintegrating 4 mg PO Q8H PRN (Reason: nausea and vomiting) Qty: 10 0RF metformin 500 mg tablet 1,000 mg PO BID Hold Instructions: Resume on 06/05/22. Please hold metformin for 48 hours (DME) blood-glucose meter [FreeStyle Lite Meter] Kit See Rx Instructions .ROUTE .MEDSUPPLY Qty: 1 0RF Rx Instructions: As directed (DME) FreeStyle Lite Strips Strip See Rx Instructions .ROUTE .MEDSUPPLY Qty: 10 0RF Rx Instructions: As directed Discharge Instructions Instructions: COPD (Chronic Obstructive Pulmonary Disease) (ED), Viral Syndrome (ED) Additional Instructions: Increase your prednisone to 60 mg/day for the next 5 days. Use the DuoNeb solution (combination of albuterol and ipratropium) every 4 hours and as needed. Check with the pharmacist on the Sudafed to unclog your nose. You should only use this for a short period of times as it can increase your blood pressure. Look to see if the Zyrtec is every 12 hours or every 24 hours; this should help dry you out. Return to the ED or get a recheck with your primary care doc if you have a fever of 100.4 or above. Medical Decision Making Patient is nontoxic-appearing with good sense that in respiratory rate. Her labs are really unremarkable. We did not give her antibiotics with her history of COPD as she is being discharged. She has tolerated the increased dose of prednisone. Ipratropium program added to the albuterol. She states that her breathing feels better. She has no pneumonia. She does report some sinus congestion but her sinuses are really nontender. She may have had a tactile fever 3 days ago but none recently or today. She wanted antibiotics for sinus infection and I discussed with her the reason that this was not particularly indicated and could in fact hurt her. She will try Sudafed for decongestion. This can sometimes affect 1's blood pressure and I talked to her about this. She was told that if she documents a fever of 100.4 or above she should return to the ED and follow-up with her PCP as we might then reconsider antibiotics for sinusitis. Medical Records Medical records reviewed: Yes I reviewed the patient's medical records. Imaging Data Radiologic Study: Imaging: X-Ray My impression: CXR: NAD and no acute change vs 05/03/23 Lab Data Lab results reviewed: Yes I reviewed the patient's lab results. Lab results narrative: Patient's CBC, CHEM 20, and VBG are all normal with the exception of a glucose of 243. FLUVID is negative. ECG Data Attestation: I personally reviewed and interpreted this ECG (s) as follows: (Normal sinus rhythm at 70, normal intervals and EKG, no change vs 11/11/21) HPI General Date/Time Provider Initiated Documentation: 05/06/23 15:05. HPI Narrative: This 62-year-old female patient was referred to the ED from urgent care with a chief complaint of ongoing URI. The patient reports that she has had URI symptoms for the past week and a half. This includes congestion and facial pressure. She has had some coughing but a lot more wheezing and difficulty breathing. She has been on 40 mg of prednisone per day for the past 3 days. She states that she cannot take quinolones or high dose prednisone because of some cognitive issues that she after taking this together. She may have had some fevers and chills but none in several days. There have been no rigors. She has a little bit of a headache. There is no sore throat. She has been using albuterol at home and says this makes her mouth dry. She denies chest pain. There is no abdominal pain or GI symptoms. She has no pedal edema or calf pain. There is no stiff neck, swollen glands, or rash. She has no weakness, dizziness, or focal neurologic symptoms. Patient does report COPD, asthma, BARRERA, and coronary artery disease. Related Data Home Medications Medication Instructions Recorded Confirmed Cpap 10/24/12 05/06/23 acetaminophen 325 mg tablet 650 mg PO Q4H PRN 10/24/12 05/06/23 (Tylenol) lancets 33 gauge (OneTouch Delica #200 ea 12/15/12 05/06/23 Lancets) blood sugar diagnostic (Skyfire LabsTouch #100 strips 01/24/14 05/06/23 Ultra Test strips) budesonide-formoterol HFA 80 2 puff inhalation BID #3 grams 05/01/18 05/06/23 mcg-4.5 mcg/actuation aerosol inhaler (Symbicort) inhalational spacing device #1 ea 05/01/18 05/06/23 (Aerochamber MV spacer) nitroglycerin 0.4 mg sublingual 0.4 mg sublingual PRN #25 tab-caps 05/04/18 05/06/23 tablet amlodipine 5 mg tablet 5 mg PO DAILY #90 tab-caps 07/27/18 05/06/23 clopidogrel 75 mg tablet (Plavix) 75 mg PO DAILY #90 tabs 07/27/18 05/06/23 simvastatin 10 mg tablet 10 mg PO DAILY #90 tab-caps 07/31/18 05/06/23 losartan 100 mg tablet (Cozaar) 100 mg PO DAILY #90 tab-caps 12/27/18 05/06/23 fluticasone propionate 50 1 spray intranasal BID PRN nasal 02/03/19 05/06/23 mcg/actuation nasal congestion #9.9 grams spray,suspension (Flonase Allergy Relief) loratadine 10 mg tablet (Claritin) 10 mg PO DAILY 02/03/19 05/06/23 lorazepam 1 mg tablet 0.5 - 1 mg (0.5 - 1 x 1 mg) PO BID 02/19/19 05/06/23 PRN anxiety #30 tabs albuterol sulfate 90 mcg/actuation 2 puff inhalation Q4H PRN 08/29/19 05/06/23 aerosol inhaler (Ventolin HFA) shortness of breath or wheezing #8.5 grams metformin 500 mg tablet 1,000 mg PO BID 09/12/19 05/06/23 aspirin 81 mg tablet,delayed 81 mg PO DAILY 08/17/20 05/06/23 release lamotrigine 100 mg tablet 100 mg PO QAM 08/17/20 05/06/23 trazodone 50 mg tablet 100 mg PO HS PRN 08/17/20 05/06/23 blood sugar diagnostic (FreeStyle #10 ea 12/06/20 05/06/23 Lite Strips) blood-glucose meter (FreeStyle #1 ea 12/06/20 05/06/23 Lite Meter kit) melatonin 10 mg capsule 10 mg PO HS PRN 02/23/21 05/06/23 lactobacillus combination no.9 4 4,000 mmu cells PO DAILY #30 caps 10/13/21 05/06/23 billion cell capsule (Adult 50 Plus Probiotic) simethicone 125 mg chewable tablet 125 mg PO TID PRN abdominal 11/11/21 05/06/23 distention #30 tabs pantoprazole 40 mg tablet,delayed 40 mg PO DAILY #30 tabs 11/25/21 05/06/23 release (Protonix) nebulizers (Aeroneb Go Nebulizer) #1 ea 04/03/22 05/06/23 insulin glargine 100 unit/mL 10 unit subcut BID 01/07/23 05/06/23 subcutaneous cartridge buspirone 30 mg tablet 30 mg PO BID 03/16/23 05/06/23 sucralfate 100 mg/mL oral 10 ml PO QID 03/16/23 05/06/23 suspension ondansetron 4 mg disintegrating 4 mg PO Q8H PRN nausea and 05/03/23 05/06/23 tablet vomiting #10 tabs prednisone 20 mg tablet 40 mg (2 x 20 mg) PO DAILY #8 tabs 05/03/23 05/06/23 ipratropium 0.5 mg-albuterol 3 mg 3 ml inhalation Q4H PRN #90 mL 05/06/23 (2.5 mg base)/3 mL nebulization soln prednisone 20 mg tablet 20 mg PO DAILY #15 tabs 05/06/23 Previous Rx's Medication Instructions Recorded budesonide-formoterol HFA 80 2 puff inhalation BID #3 grams 05/01/18 mcg-4.5 mcg/actuation aerosol inhaler (Symbicort) inhalational spacing device #1 ea 05/01/18 (Aerochamber MV spacer) nitroglycerin 0.4 mg sublingual 0.4 mg sublingual PRN #25 tab-caps 05/04/18 tablet amlodipine 5 mg tablet 5 mg PO DAILY #90 tab-caps 07/27/18 clopidogrel 75 mg tablet (Plavix) 75 mg PO DAILY #90 tabs 07/27/18 simvastatin 10 mg tablet 10 mg PO DAILY #90 tab-caps 07/31/18 losartan 100 mg tablet (Cozaar) 100 mg PO DAILY #90 tab-caps 12/27/18 fluticasone propionate 50 1 spray intranasal BID PRN nasal 02/03/19 mcg/actuation nasal congestion #9.9 grams spray,suspension (Flonase Allergy Relief) lorazepam 1 mg tablet 0.5 - 1 mg (0.5 - 1 x 1 mg) PO BID 02/19/19 PRN anxiety #30 tabs albuterol sulfate 90 mcg/actuation 2 puff inhalation Q4H PRN 08/29/19 aerosol inhaler (Ventolin HFA) shortness of breath or wheezing #8.5 grams blood sugar diagnostic (FreeStyle #10 ea 12/06/20 Lite Strips) blood-glucose meter (FreeStyle #1 ea 12/06/20 Lite Meter kit) lactobacillus combination no.9 4 4,000 mmu cells PO DAILY #30 caps 10/13/21 billion cell capsule (Adult 50 Plus Probiotic) simethicone 125 mg chewable tablet 125 mg PO TID PRN abdominal 11/11/21 distention #30 tabs pantoprazole 40 mg tablet,delayed 40 mg PO DAILY #30 tabs 11/25/21 release (Protonix) nebulizers (Aeroneb Go Nebulizer) #1 ea 04/03/22 ondansetron 4 mg disintegrating 4 mg PO Q8H PRN nausea and 05/03/23 tablet vomiting #10 tabs prednisone 20 mg tablet 40 mg (2 x 20 mg) PO DAILY #8 tabs 05/03/23 ipratropium 0.5 mg-albuterol 3 mg 3 ml inhalation Q4H PRN #90 mL 05/06/23 (2.5 mg base)/3 mL nebulization soln prednisone 20 mg tablet 20 mg PO DAILY #15 tabs 05/06/23 Allergies Allergy/AdvReac Type Severity Reaction Status Date / Time azithromycin AdvReac Mild Nausea Verified 05/06/23 12:34 codeine AdvReac Mild Nausea Verified 05/06/23 12:34 erythromycin base AdvReac Mild Nausea Verified 05/06/23 12:34 ibuprofen AdvReac Mild Nausea Verified 05/06/23 12:34 lisinopril AdvReac Mild cough Verified 05/06/23 12:34 NSAIDS (Non-Steroidal AdvReac Mild Nausea Verified 05/06/23 12:34 Anti-Inflamma General Stated Complaint: RespSymp MONICA: 3 Review of Systems All systems reviewed & are unremarkable except as noted in HPI and below Constitutional Constitutional: Reports as per HPI, Denies chills, Denies fever(s) and Denies headache(s) Eyes Eyes: Denies blurry vision and Reports other (no redness) ENT Ears, Nose, Mouth, and Throat: Denies dizziness, Denies otalgia, Denies headache(s), Denies nasal congestion, Denies nasal discharge, Denies neck pain and Denies odynophagia Cardiovascular Cardiovascular: Denies chest pain, Denies palpitations and Denies dyspnea Respiratory Respiratory: Denies cough and Denies dyspnea Gastrointestinal Gastrointestinal: Denies abdominal pain, Denies diarrhea, Denies nausea, Denies odynophagia and Denies vomiting Genitourinary Genitourinary: Denies dysuria Musculoskeletal Musculoskeletal: Denies myalgias, Denies muscle weakness, Denies neck pain and Denies numbness Integumentary/Breasts Skin/Breast: Denies erythema and Denies rash Neurologic Neurologic: Denies dizziness, Denies headache(s) and Denies numbness Endocrine Endocrine: Denies palpitations PFSH All Active Problems (Updated 05/06/23 @ 17:28 by Tata Vasquez MD) Acute exacerbation of chronic obstructive pulmonary disease (COPD) (Acute) Acute viral syndrome (Acute) Asthma exacerbation in COPD (Acute) URI (upper respiratory infection) (Acute) Degenerative joint disease of right knee (Acute) Mild 40 mg Depo: 03/20/23 Internal derangement of right knee (Acute) Right knee pain (Acute) Liver cirrhosis secondary to nonalcoholic steatohepatitis (BARRERA) (Acute) Chronic diarrhea (Acute) Epigastric pain (Acute) Hyperplastic colon polyp (Acute) ASCVD (arteriosclerotic cardiovascular disease) (Acute) 10/15 anterolat NSTE ID; stent x 4; 10/15 echo-EF 55%; inf.wall hypokinesis; mild Anxiety (Acute) after ID decreased memory/concentration--[facility] neurology COPD (chronic obstructive pulmonary disease) (Acute) continues to smoke Depressive disorder (Acute) fatigue Diabetic peripheral neuropathy associated with type 2 diabetes mellitus (Acute 03/03/16) Essential hypertension (Acute 05/03/13) Urinary, incontinence, stress female (Acute 09/13/13) Heart murmur (Acute 09/13/13) 10/21 echo LVEF 70% with LVH, aoritc valve thickened but opens well (no signif aortic stenosis) [facility] Echo 02/05/19 - LVH (mild-mod), EeF= 60-65%, systolic function normal, ascending aorta mildly dilated Hyperlipidemia (Acute 12/18/12) Morbid obesity (Acute) Numbness and tingling in right hand (Acute 03/03/16) Obstructive sleep apnea syndrome (Acute 03/27/10) [facility] sleep lab Pap smear abnormality of cervix with LGSIL (Acute) LGSIL +HPV; BX darcie I Postmenopausal bleeding (Acute 09/21/11) atypical endometrial hyperplasia Sciatica (Acute 07/04/13) left sciatica, MRI [facility] 07/22/13: L3-4 disc extrusion Skin tags, multiple acquired (Acute 02/15/16) Smoker (Acute) Type II diabetes mellitus, uncontrolled (Acute) Asthma (Chronic) Status post arthroscopy of left knee (Acute) History of section (Acute) Family history of malignant neoplasm of breast (Acute 09/11/14) Fever (Acute) She is febrile and has both abdominal and chest symptoms. We will send to the emergency room. Upper respiratory infection (Acute) Hyperglycemia (Acute) Acute bronchospasm (Acute) Seasonal allergies (Acute) History of COPD (Acute) Fatty liver (Acute) Diverticulosis (Acute) Constipation (Acute) Incontinence (Acute) Pedal edema (Acute) Varicose veins of lower extremity (Acute) Bipolar disorder (Chronic) Compliant with therapeutic regimen (Acute) Caren, oral (Acute) Allergic rhinitis (Acute) Medical History Hx of malignant neoplasm of eye History of renal carcinoma Hypertension COPD (chronic obstructive pulmonary disease) Hyperlipidemia Heart murmur Atherosclerotic cardiovascular disease Depression Anxiety Stress incontinence in female Morbid obesity with BMI of 40.0-44.9, adult Plantar fasciitis of left foot Sleep apnea Surgical History H/O esophagogastroduodenoscopy (~03/10/21) S/P colonoscopy (~03/10/21) Stent placement X 4 TO [id number] section (~1981) Cervical Procedure BX DARCIE I Arthroplasty of knee athroscopy not arthroplasty. Family History Mother Personal history of malignant neoplasm UTERINE CA; HYSTERECTOMY AGE 76 Uterine cancer Hysterectomy at 76 Father Heart disease Brother Diabetes Cancer Brother No problems noted. Brother No problems noted. Social History Smoking/Tobacco Use Status: Current every day Tobacco Type: cigarettes Smoking packs per day: 1 Smoking cigarettes per day: 20.0 Smoking risk assessment performed?: Yes Alcohol Intake: current Alcohol Intake frequency: holidays/special occasions only Drug use: Never Substance use type: does not use Household members: significant other Housing: house Communication Needs: None Do you need help understanding health information?: Rarely Pets and animals: Yes Pets and animals: dog(s) Do you think of yourself as: straight/heterosexual Current gender identity: female What is your relationship status?: living with partner How often do you talk on the phone with friends or family?: three or more times per week How often do you get together with friends or relatives?: decline to answer How often do you attend christianity or islam services?: decline to answer Do you belong to any clubs or organized social groups?: no Panel score (0-1 are the most socially isolated patients): 2 What type of physical activity do you participate in: none Duration: < 15 minutes/day Frequency: daily Katerina/Mormon: none Special katerina needs: No Seatbelt use: sometimes Helmet use: Yes Helmet use: always Drive intox or ride w/intox warehouse driver: No Do you feel safe at home: Yes Do you feel safe in your relationship?: Yes Exam Const General: no acute distress, well developed, well groomed and not in acute distress Nutritional Appearance: well nourished Orientation: alert and oriented x3 HENMT Head: normocephalic and atraumatic Ears: external ears normal and TM's normal bilaterally (Some serotonin) General nose exam: external nose normal Face and sinus: normal facial exam and sinuses nontender Mouth: oropharynx normal and moist mucous membranes Throat: posterior oropharynx normal Eyes Conjunctivae: conjunctivae normal Neck Neck: full ROM and supple Chest Chest: normal inspection of the chest Resp Effort & Inspection: normal respiratory effort and able to speak in complete sentences Auscultation: rales and wheezes (More expiratory) Cardio Rate: regular rate Rhythm: regular rhythm Heart Sounds: no murmurs and no rubs GI Inspection: normal to inspection Palpation: soft, nontender and other (non distended) Auscultation: normal bowel sounds Skin General skin exam: no rashes or lesions noted and other (pink, warm, dry) Neuro General: patient alert, patient awake and patient oriented x3 Speech: speech normal Motor: other (SIDDIQUI) Sensory Exam: no sensory deficits noted Extrem General: normal to inspection, full ROM, pedal edema present and no calf tenderness Psych Mental Status: mental status grossly normal Speech and Movement: speech and movement normal Affect: normal affect Course Vital Signs Vital signs: Vital Signs Temperature 36.5 C 05/06/23 14:49 Pulse 78 05/06/23 14:49 Respiratory Rate 18 05/06/23 14:49 Blood Pressure 170/88 H 05/06/23 14:49 Pulse Oximetry 98 05/06/23 14:49 Temperature 36.5 C 05/06/23 14:49 Temperature Source Oral 05/06/23 14:49 Pulse 78 05/06/23 14:49 Respiratory Rate 18 05/06/23 14:49 Respiratory Effort Normal, Non-Labored 05/06/23 15:17 Respiratory Depth Normal 05/06/23 15:17 Blood Pressure 170/88 H 05/06/23 14:49 Blood Pressure Position Sitting 05/06/23 14:49 Pulse Oximetry 98 05/06/23 14:49 Oxygen Delivery Method Room Air 05/06/23 14:49 Oxygen Flow Rate 0 05/06/23 14:49
[2023-05-06 16:10] LABS: COVID-19 PCR Negative (Negative); Influenza A PCR Negative (Negative); Influenza B PCR Negative (Negative); RSV PCR Negative (Negative)
[2023-05-06 16:12] LABS: Source NASOPHARYNX
[2023-05-06 16:23] LABS: BE (Venous) 3 mmol/L (-2-3); HCO3 (Venous) 28 mmol/L (23-28); O2 Sat (Venous) 79 %; TCO2 (Venous) 25 mmol/L (24-29); pCO2 (Venous) 45 mmHg (41-51); pO2 (Venous) 40 mmHg
[2023-05-06 16:25] LABS: Lactate 1.3 mmol/L (0.6-1.4)
[2023-05-06] MEDS: predniSONE 20 MG TAB PO (16:27)
[2023-05-06] MEDS: Albuterol/Ipratropium 3 ML UPD VIAL UPD (16:27)
[2023-05-06] MEDS: Normal Saline 1,000 ML 1000 ML IV (16:27)
[2023-05-06 16:28] LABS: Abs Immature Grans 0.07 10^3/uL (0.0-0.06); Absolute Basophil Count 0.02 10^3/uL (0.0-0.2); Absolute Eosinophil Count 0.01 10^3/uL (0.0-0.7); Absolute Lymphocyte Count 1.03 10^3/uL (1.2-3.4); Basophils % 0.3; Eosinophils % 0.2; HCT 38.7 % (36.0-46.0); HGB 12.9 g/dL (11.2-15.7); Immature Grans % 1.1; Lymphocytes % 15.5; MCH 27.9 pg (27.0-33.0); MCHC 33.3 % (32.0-36.0); MCV 84 fL (80-95); MPV 8.9 fL (8.0-11.0); Neutrophils % 79.9; Platelet Count 353 10^3/uL (130-400); RBC 4.63 10^6/uL (3.93-5.22); RDW 14.2 % (11.7-14.6); RDW-SD 43.8 fL; WBC 6.63 10^3/uL (4.4-10.8)
[2023-05-06 16:43] LABS: ALT 50 U/L (14-59); AST 37 U/L (15-37); Albumin 3.8 g/dL (3.4-5.0); Alkaline Phosphatase 92 U/L (46-116); Anion Gap 7.7 mmol/L (3-11); BUN 13 mg/dL (7-18); Bilirubin, Total 0.5 mg/dL (0.2-1.0); CO2 27.3 mmol/L (21.0-32.0); Calcium 9.2 mg/dL (8.5-10.1); Chloride 103 mmol/L (98-107); Glucose 243 mg/dL (74-106); Potassium 4.2 mmol/L (3.5-5.1); Sodium 138 mmol/L (136-145); Total Protein 7.3 g/dL (6.4-8.2)
--- NOTE | 2023-05-06 17:54 | DI.VRAD_ITS ---
PROCEDURE INFORMATION: Exam: XR Chest Exam date and time: 05/06/2023 16:55 Age: 62 years old Clinical indication: Other: SOB, fever, rales, wheeze TECHNIQUE: Imaging protocol: Radiologic exam of the chest. Views: 2 views. COMPARISON: CR XR CHEST 2V PA LATERAL 05/03/2023 11:06 FINDINGS: Lungs: Mild central interstitial thickening. The lungs appear hyperinflated. No airspace consolidation. Pleural spaces: No pleural effusion. No pneumothorax. Heart/Mediastinum: No cardiomegaly. Bones/joints: No acute fracture. IMPRESSION: Interstitial disease suggesting bronchitis , reactive airways disease or atypical infection. Dictated and Authenticated by: Doris Posadas MD. Ordering:RYAN Payton MD
== END 2023-05-06 17:43 | disposition home or self-care (01) ==
PROVIDERS: Emergency Provider Emergency Medicine; PCP Family Medicine
DX: J44.1 Chronic obstructive pulmonary disease with (acute) exacerbation (principal); B34.9 Viral infection, unspecified; I10 Essential (primary) hypertension; I25.10 Atherosclerotic heart disease of native coronary artery without angina pectoris; I25.2 Old myocardial infarction; E11.40 Type 2 diabetes mellitus with diabetic neuropathy, unspecified; E78.5 Hyperlipidemia, unspecified; Z95.5 Presence of coronary angioplasty implant and graft; Z79.02 Long term (current) use of antithrombotics/antiplatelets; Z79.4 Long term (current) use of insulin; Z20.822 Contact with and (suspected) exposure to COVID-19; F17.210 Nicotine dependence, cigarettes, uncomplicated; Z79.82 Long term (current) use of aspirin
CPT/HCPCS: 80053; 82805; 87637; 93005; 94640; 96360; 99283; 71046; 83605; 85025; 93010; J7512; J7620

== ENCOUNTER → 2023-05-23 17:24 | Outpatient (CLI) | payer MEDICARE, MEDICAID, SELFPAY ==
--- NOTE | 2023-05-23 17:30 | DI.RAD_ITS ---
Exam(s) XR CHEST 2V PA LATERAL EXAM: XR CHEST 2V PA LATERAL CLINICAL HISTORY: Unrelenting cough wheezing. TECHNIQUE: 2D digital imaging was performed. COMPARISON: No exams were available for comparison FINDINGS: 2 views: Heart size is normal. The mediastinum is not widened. Lungs are clear. No infiltrates nor pleural effusions. IMPRESSION: No acute pulmonary findings. DATA REPOSITORY: RADIATION DOSE DELIVERED:
--- NOTE | 2023-05-23 18:16 | DI.VRAD_ITS ---
PROCEDURE INFORMATION: Exam: XR Chest Exam date and time: 05/23/2023 5:38 PM Age: 62 years old Clinical indication: Patient HX: Unrelenting cough wheezing TECHNIQUE: Imaging protocol: Radiologic exam of the chest. Views: 2 views. Total images: 2 COMPARISON: CR XR CHEST 2V PA LATERAL 05/06/2023 4:55 PM FINDINGS: Lungs: Lungs appear clear. No visible consolidation. No pulmonary masses. Pulmonary vascularity is normal. Pleural spaces: No pleural effusion or pneumothorax. Heart/Mediastinum: Heart size is normal. Bones/joints: No acute osseous abnormalities. IMPRESSION: No acute cardiopulmonary disease. Dictated and Authenticated by: Carlota Batista MD. Ordering:YAKOV Quintero MD
== END ==
PROVIDERS: PCP Family Medicine; Visit Provider Physician Assistant Medical
DX: R06.2 Wheezing (principal)
CPT/HCPCS: 71046

== ENCOUNTER 2023-06-05 18:18 | Outpatient (REF) | payer MEDICARE, MEDICAID, SELFPAY ==
[2023-06-05 21:29] LABS: Abs Immature Grans 0.04 10^3/uL (0.0-0.06); Absolute Basophil Count 0.06 10^3/uL (0.0-0.2); Absolute Eosinophil Count 0.12 10^3/uL (0.0-0.7); Absolute Monocyte Count 0.61 10^3/uL (0.1-0.8); Absolute Neutrophil Count 4.86 10^3/uL (1.2-6.7); Basophils % 0.7; Eosinophils % 1.5; Immature Grans % 0.5; Lymphocytes % 29.7; MCH 28.3 pg (27.0-33.0); MCHC 33.3 % (32.0-36.0); MCV 85 fL (80-95); MPV 9.3 fL (8.0-11.0); Monocytes % 7.5; Neutrophils % 60.1; Platelet Count 392 10^3/uL (130-400); RBC 4.24 10^6/uL (3.93-5.22); RDW 14.8 % (11.7-14.6); RDW-SD 45.5 fL; WBC 8.09 10^3/uL (4.4-10.8)
[2023-06-05 21:47] LABS: Anion Gap 11.2 mmol/L (3-11); BUN 11 mg/dL (7-18); CO2 25.8 mmol/L (21.0-32.0); CREATININE 0.9 mg/dL (0.55-1.02); Calcium 9.7 mg/dL (8.5-10.1); Chloride 104 mmol/L (98-107); Estimated GFR 71.83 (mL/min/1.73m2); Glucose 161 mg/dL (74-106); NT-proBNP 87 pg/mL (<300); Potassium 4.4 mmol/L (3.5-5.1); Sodium 141 mmol/L (136-145)
== END 2023-06-05 18:19 | disposition home or self-care (01) ==
LOC: LBN 18:18
PROVIDERS: PCP Family Medicine; Visit Provider Nurse Practitioner Family
DX: J44.9 Chronic obstructive pulmonary disease, unspecified (principal); R06.02 Shortness of breath
CPT/HCPCS: 80048; 83880; 85025

== ENCOUNTER 2024-03-04 20:56 | Emergency (ER) | payer MEDICARE, MEDICAID, SELFPAY ==
[2024-03-04 20:58] VITALS: BP 161/96; PULSE 83; RESP 16; TEMP 36.2; O2SAT 99
--- NOTE | 2024-03-04 21:15 | DI.CT_ITS ---
Exam(s) CT ABDOMEN PELVIS W EXAM: CT ABDOMEN PELVIS W CLINICAL HISTORY: abdominal pain, hx of renal cancer, bloating. TECHNIQUE: Imaging Protocol: Axial computed tomography images with coronal and sagittal reformatted images were created and reviewed CONTRAST MATERIAL: Intravenous: Omnipaque-350 100cc Oral: None COMPARISON: CT CT ABDOMEN PELVIS W from 06/03/2022 FINDINGS: VISUALIZED LUNG BASES: No nodules nor pleural effusions evident. ABDOMEN: There is no ascites. LIVER: There are no focal hepatic lesions evident. No dilated intrahepatic ducts. GALLBLADDER/BILIARY: No obvious gallbladder pathology. CBD is not dilated. PANCREAS: No evidence of pancreatic mass nor dilatation of the pancreatic duct. SPLEEN: Spleen is not enlarged. No obvious intrasplenic lesions. Splenic and portal veins are paten t. ADRENALS: There are no significant adrenal masses. KIDNEYS:Surgical defect in the inferomedial aspect the left kidney is again noted from prior partial nephrectomy. No new mass at this level. However, there is a 3 millimeter nonobstructive calculus ev ident in left kidney. No hydronephrosis nor hydroureter. Opposite-right kidney remains unremarkable .. ABDOMINAL AORTA: An calcified but not enlarged. Common iliac arteries are also calcified but not enl arged. LYMPH NODES:There is no retroperitoneal nor paraaortic adenopathy. ABDOMINAL WALL: There is a fat only containing right inguinal hernia. GI: There is no evidence of bowel obstruction, free air, nor abscess. PELVIS: GI: No evidence of appendicitis.No significant sigmoid diverticular disease. LYMPH NODES: There is no intrapelvic nor inguinal adenopathy. REPRODUCTIVE: Uterus and adnexal regions unremarkable. No free fluid. URINARY BLADDER: No calculi nor obvious masses evident OSSEOUS: No fractures and no significant osseous lesions. Multilevel chronic degenerative disc disease in the lumbar spine. IMPRESSION: 1. Stable appearance of left kidney partial nephrectomy site. No recurrent nor new mass in the kidne y. There is a 3 millimeter nonobstructive calculus in the left kidney now evident. Right kidney rem ains unremarkable. 2. There is a fat only containing right inguinal hernia again noted, unchanged. 3. No evidence of bowel obstruction. No evidence of ascites. RADIATION DOSE DELIVERED: 681.55mGy.cm Total DLP DATA REPOSITORY: All CT scans at this facility are submitted to the National Radiology Data Registry (NRDR) Dose Index Registry (DIR) with the [employer] (ACR). RADIATION OPTIMIZATION: All CT scans at this facility use at least one of these dose optimization te chniques: automated exposure control; mA and/or kV adjustment per patient size (includes targeted exa ms where dose is matched to clinical indication); or iterative reconstruction.
--- NOTE | 2024-03-04 21:15 | RT.EKG_ITS ---
APPROVED REPORT Exam: Resting ECG Reason for Exam: epigastric pain Patient Location: E HR:87 bpm ECG Measurements Heart Rate 87 AXIS WV 195 P 11 QRSd 98 QRS 2 QT 362 T 23 QTc 423 Conclusion Sinus rhythm PVCs No STEMI
--- OUTSIDE RECORDS SUMMARY | 2024-03-04 21:16 | XMS_ITS | Encounter Summary ---
Author Organization [facility] Address [address] [place] [address] Care Team Providers Care Loan Supervisor Name Role Phone Brenda Canchola MD Primary Care Provider [phone] Encounter Details Date Type Department Care Team (Late st Contact Info) Description 02/06/2019 Historical Results Only [facility] - [facility] - Main [address] [address] Nathan Michael MD [address] [place] [id number] Social History Tobacco Use Types Packs/Day Years Used Date Smoking Tobacco: Every Day Cigarettes 1 30 Alcohol Use Standard Drinks/Week Comments Yes 0 (1 standard drink = 0.6 oz pur e alcohol) 1-2 times per year Sex and Gender Information Value Date Recorded Sex Assigned at Not on file Gender Identity Not on file Sexual Orientation Not on file documented as of this encounter Plan of Treatment Not on file documented as of this encounter Procedures Procedure Name Priority Date/Time Associated Diagnosis Comments POCT GLUCOSE, INTERFACED Routine 02/06/2019 12:07 EDT POCT GLUCOSE, INTERFACED Routine 02/06/2019 7:50 EDT COMPLETE BLOOD COUNT WITH DIFFERENTIAL (AUTO) Routine 02/06/2019 6:45 EDT ALT Routine 02/06/2019 6:45 EDT AST Routine 02/06/2019 6:45 EDT MAGNESIUM Routine 02/06/2019 6:45 EDT BASIC METABOLIC PANEL (BMP) Routine 02/06/2019 6:45 EDT documented in this encounter Results * (ABNORMAL) POCT GLUCOSE (02/06/2019 12:07 EDT) Glucose, POC 64(L) 70 - 100 mg/dL 02/06/2019 12:09 EDT [facility] 02/06/2019 12:0 7 EDT 02/06/2019 12:09 EDT Nathan Michael MD POINT OF CARE TEST O RDERABLES Performing Organization Address [facility]/ZIP Co de Phone Number [facility] * (ABNORMAL) POCT GLUCOSE (02/06/2019 7:50 EDT) Glucose, POC 137(H) 70 - 100 mg/dL 02/06/2019 7:52 EDT [facility] 02/06/2019 7:50 EDT 02/06/2019 7:52 EDT Nathan Michael MD POINT OF CARE TEST O RDERABLES Performing Organization Address [facility]/ZIP Co de Phone Number [facility] * (ABNORMAL) ALT (02/06/2019 6:45 EDT) [facility] SGPT/ALT - [facility] 121(H) 9 - 52 U/L 02/06/2019 8:10 EDT [facility] 02/06/2019 6:45 EDT 02/06/2019 6:49 EDT Narrative [facility] - 02/06/2019 8:10 EDT AOT: 02/06/19 0743: AST/ALT Ruby Frederick MD CHEMISTRY & BLOOD GA S ORDERABLES Performing Organization Address [facility]/ZIP Co de Phone Number [facility] * (ABNORMAL) AST (02/06/2019 6:45 EDT) SGOT/AST - [facility] 63(H) 14 - 36 U/L 02/06/2019 8:10 EDT [facility] 02/06/2019 6:45 EDT 02/06/2019 6:49 EDT [facility] - 02/06/2019 8:10 EDT AOT: 02/06/19 0743: AST/ALT Ruby Frederick MD CHEMISTRY & BLOOD GA S ORDERABLES [facility] * MAGNESIUM (02/06/2019 6:45 EDT) Pathologist [facility] Magnesium 2.20 1.7 - 2.8 mg/dL [facility]2019 [facility]/06/[facility] 6:45 EDT 02/06/2019 6:49 EDT [facility] - 02/06/2019 8:10 EDT AOT: 02/06/19 0743: AST/ALT Ruby Frederick MD CHEMISTRY & BLOOD GA S ORDERABLES [facility] * (ABNORMAL) BASIC METABOLIC PANEL (BMP) (02/06/2019 6:45 EDT) Pathologist [facility] 14 10 - 26 mg/dL 02/06/2019 7:24 [facility] CALCIUM [facility] 9.5 8.5 - 10.5 mg/dL 02/06/2019 7:24 [facility] Chloride 98 96 - 110 mmol/L 02/06/2019 7:24 [facility] CO2 Total 28 22 - 32 mEq/L 02/06/2019 7:24 [facility] CREATININE 0.68 0.52 - 1.04 mg/dL 02/06/2019 7:24 [facility] eGFR >60 02/06/2019 7:24 [facility] Comment: Chronic renal impairment is defined as GFR <60 Multiply result by 1.210 for patients. eGFR calculated using the IDMS-traceable MDRD Study Equation. ??(effective 05/12/2014) Anion Gap 7 0 - 18 02/06/2019 7:24 T [facility] GLUCOSE - [facility] 137(H) 70 - 100 mg/dL 02/06/2019 7:24 [facility] Potassium 4.3 3.5 - 5.0 mEq/L 02/06/2019 7:24 [facility] Sodium 133(L) 136 - 145 mEq/L 02/06/2019 7:24 [facility] 02/06/2019 6:45 EDT 02/06/2019 6:49 EDT [facility] - 02/06/2019 8:10 EDT AOT: 02/06/19 0743: AST/ALT Ruby Frederick MD CHEMISTRY & BLOOD GA S ORDERABLES [facility] * (ABNORMAL) COMPLETE BLOOD COUNT WITH DIFFERENTIAL (AUTO) (02/06/2019 6:45 EDT) ABSOLUTE NEUTROPHIL COUN - [facility] 7.7 2.2 - 8.85 10e3/uL 02/06/2019 7:14 [facility] BASO # - CV 0.02 0.01 - 0.11 10e/uL 02/06/2019 7:14 [facility] BASO % - MC 0 0 - 2 % 02/06/2019 7:14 [facility] EOS # - CVMC 0.10 0.03 - 0.61 10e3/ul 02/06/2019 7:14 [facility] EOS % - [facility] 1 0 - 5 % 02/06/2019 7:14 [facility] GRAN % - [facility] 71.6 40 - 80 % 02/06/2019 7:14 [facility] HEMATOCRIT - [facility] 40.4 34.9 - 44.4 % 02/06/2019 7:14 [facility] HEMOGLOBIN - [facility] 13.4 11.6 - 15.2 g/dl 02/06/2019 7:14 [facility] IG# - [facility] 0.06 0 - 0.7 10e3/uL 02/06/2019 7:14 [facility] IG% - [facility] 0.6 0 - 0.9 % 02/06/2019 7:14 [facility] LYMPH # - [facility] 2.0 1.09 - 3.3 10e3/ul 02/06/2019 7:14 [facility] LYMPH% - [facility] 18.3(L) 20 - 40 % 02/06/2019 7:14 [facility] MEAN CORPUSCULAR HGB - [facility] 29.1 26.7 - 33.3 pg 02/06/2019 7:14 [facility] MEAN CORPUSCULAR HGB CONC - [facility] 33.2 32.1 - 35.9 g/dL 02/06/2019 7:14 [facility] MEAN CELL VOLUME - [facility] 87.6 81 - 98 fl 02/06/2019 7:14 [facility] MONO # - [facility] 0.9(H) 0.1 - 0.8 10e3/uL 02/06/2019 7:14 [facility] MONO% - [facility] 8.4 0 - 12 % 02/06/2019 7:14 [facility] PLATELET COUNT 346 141 - 377 10e3/ul 02/06/2019 7:14 [facility] RED BLOOD COUNT - [facility] 4.61 3.86 - 5.04 10e3/ul 02/06/2019 7:14 [facility] RED CELL DISTRI WIDTH - [facility] 14.7 <14.7 % 02/06/2019 7:14 [facility] WHITE BLOOD COUNT - [facility] 10.8 4.0 - 12.4 10e3/ul 02/06/2019 7:14 [facility] 02/06/2019 6:45 EDT 02/06/2019 6:50 EDT Ruby Frederick MD HEMATOLOGY & PF4 ORD [facility] documented in this encounter Visit Diagnoses Not on filedocumented in this encounter Care Teams Loan Supervisor Relationship Specialty Start Date End Date Brenda Canchola MD [address] [place] [address] [place] [address] PCP - General 08/03/10 documented as of this encounter
--- OUTSIDE RECORDS SUMMARY | 2024-03-04 21:16 | XMS_ITS | Encounter Summary ---
Author Organization [facility] Address [address] [place] [address] Care Team Providers Care Director Sanitation Bureau Name Role Phone Brenda Canchola MD Primary Care Provider [phone] Encounter Details Date Type Department Care Team (Late st Contact Info) Description 09/10/2010 Results Only [facility] - [facility] [address] [place], [place] [id number] Brenda Canchola MD [facility] [address] Social History Tobacco Use Types Packs/Day Years [...] Procedure Name Priority Date/Time Associated Diagnosis Comments CYTOPATHOLOGY Routine 09/10/2010 0:00 EST documented in this encounter Results * CYTOPATHOLOGY (09/10/2010 0:00 EST) Pathology Report: CYTOPATHOLOGY REPORT ? Reports generated via electronic interface contain original data; ? however they are lacking the format of the original report. ? Caution should be taken when reading/interpreti ng unformatted reports. ? Name: ? ALIZE MANJARREZ ? Accession #: ? [id number] ? : ? 1960 (Age: 49) ??F ?Collect Date: ? 09/10/2010 ? Location: ? [facility] ? Receive Date: ? 09/13/2010 ? Provider: BRENDA VÍCTOR MD ? Copy to: ? Final Report ? SPECIMEN ADEQUACY ? Satisfactory for Evaluation ? - transformation zone component present ? GENERAL CATEGORIZATION ? Negative for Intraepithelial Lesion or Malignancy ? Last Menstural Period: 3 years ago ? Previous Gynecologic Pathology: VALENTINO I: F/O 6 months ? Treatment History: Colposcopy ? Specimen/Source: ??Pap Test, Cervix/Endocervix, ThinPrep Imaging System with ? manual evaluation ? Document reviewed and electronically signed by: ? Brenda Chang, SCT(ASCP) ? Report ??Date: 09/16/2010 14:31 ? HPV with Pap Test ? Date Ordered: ? 09/16/2010 ? Status: ?? Signed Out ?Date Complete: ? 09/21/2010 ? By: ??System Interface ? Date Reported: ? 09/21/2010 ? Interpretation ? RESULT: Negative for HPV types 16, 18, 31, 33, 35, 39, 45, 51, 52, ? 56, 58, 59, and 68. ? Comments ? Document reviewed and electronically signed by: ? System Interface ? Report date: 09/21/2010 ? By the signature above, the attending physician certifies that he/she has ? personally conducted a gross and/or microscopic examination of the described ? specimens and rendered or confirmed the above diagnosis. ? End of Report ? [facility] 09/10/2010 09/13/2010 Brenda Canchola MD PATHOLOGY ORDERABLES Performing Organization Address City/State/[facility] Co de Phone Number [facility] [address] [place] [address] documented in this encounter Visit Diagnoses Not on filedocumented in this encounter Care Teams Director Sanitation Bureau Relationship Specialty Start Date End Date Brenda Canchola MD [address] [place] [address] [place] [address] PCP - General 08/03/10 documented as of this encounter
--- OUTSIDE RECORDS SUMMARY | 2024-03-04 21:16 | XMS_ITS | Referral Summary ---
Author Organization [facility] Address [address] [place] [address] Care Team Providers Care Parish Worker Name Role Phone Brenda Canchola MD Primary Care Provider [phone] Allergies Active Allergy Reactions Criticality Noted Date Comments Azithromycin 08/04/2010 Codeine 08/04/2010 Ibuprofen 08/04/2010 Stomach upset Lisinopril 08/04/2010 cough Medications Medication Sig Dispensed Refills Start Date End Date Status aspirin 325 mg tablet Take 325 mg by mouth every 6 hours as needed. Active metoprolol (LOPRESSOR) 25 mg tablet Take 25 mg by mouth 2 times daily. Active losartan (COZAAR) 100 mg tablet Take 100 mg by mouth daily. Active omeprazole (PRILOSEC) 20 mg capsule Take 20 mg by mouth daily. Active clopidogrel (PLAVIX) 75 mg tablet Take 75 mg by mouth daily. Active atorvastatin (LIPITOR) 10 mg tablet Take 10 mg by mouth daily. Active trazodone (DESYREL) 100 mg tablet Take 100 mg by mouth 2 times daily. Active lorazepam (ATIVAN) 1 mg tablet Take 1 mg by mouth 3 times daily. Active fluticasone-salmetero l (ADVAIR HFA) 115-21 mcg/Actuation inhaler Inhale 1 Puff as directed 2 times daily. Active albuterol (PROVENTIL HFA, VENTOLIN HFA) 90 mcg/Actuation inhaler Inhale 2 Puffs as directed every 4 hours. Active meloxicam (MOBIC) 7.5 mg tablet Take 1 Tab by mouth daily. 30 Tab 11 08/04/2010 Active Social History Tobacco Use Types Packs/Day Years Used Date Smoking Tobacco: Every Day Cigarettes 1 30 Alcohol Use Standard Drinks/Week Comments Yes 0 (1 standard drink = 0.6 oz pur e alcohol) 1-2 times per year Interpersonal Safety Answer Date Record ed Physically Hurt Never 02/09/2020 Verbally Threaten Not on file 02/09/2020 Sex and Gender Information Value Date Recorded Sex Assigned at Not on file Gender Identity Not on file Sexual Orientation Not on file Last Filed Vital Signs Vital Sign Reading Time Taken Comments Blood Pressure 146/82 08/04/2010 1252 EST Pulse 84 08/04/2010 1252 EST Temperature - - Respiratory Rate - - Oxygen Saturation - - Inhaled Oxygen Concentration - - Weight 122.9 kg (271 lb) 08/04/2010 1252 EST Height 161.3 cm (5' 3.5) 08/04/2010 1252 EST Body Mass Index 47.25 08/04/2010 1252 EST Plan of Treatment Not on file Procedures Procedure Name Priority Date/Time Associated Diagnosis Comments HEPATITIS C AB W REFLEX TO HCV RNA BY PCR Routine 02/05/2019 6:45 EDT from Last 3 Months or Most Recently Relevant to Health Maintenance Results * HEPATITIS C AB W REFLEX TO HCV RNA BY PCR (02/05/2019 6:45 EDT) HEPATITIS C AB W/REFLEX - [facility] Negative 02/05/2019 8:14 EDT [facility] Comment:Expected Values: Neg ative. 02/05/2019 6:45 EDT 02/05/2019 6:52 EDT Nathan Michael MD CHEMISTRY & BLOOD GA S ORDERABLES [facility] from Last 3 Months or Most Recently Relevant to Health Maintenance Care Teams Parish Worker Relationship Specialty Start Date End Date Brenda Canchola MD [address] [place] [address] [place] [address] PCP - General 08/03/10
--- OUTSIDE RECORDS SUMMARY | 2024-03-04 21:16 | XMS_ITS | Encounter Summary ---
Author Organization [facility] Address [address] [place] [address] Care Team Providers Care Fabrication Specialist Name Role Phone Brenda Canchola MD Primary Care Provider [phone] Encounter Details Date Type Department Care Team (Late st Contact Info) Description 08/04/2010 15:13 EST - 08/04/2010 23:59 EST Hospital Encounter [address] [address] Smyone Hayden MD [address] [place] [address], [address] [place] [phone] Osteoarthritis Discharge Disposition: Auto Discharge Social History Tobacco Use Types Packs/Day Years [...] on file documented as of this encounter Medications at Time of Discharge Medication Sig Dispensed Refills Start Date End Date albuterol (PROVENTIL HFA, VENTOLIN HFA) 90 mcg/Actuation inhaler Inhale 2 Puffs as directed every 4 hours. aspirin 325 mg tablet Take 325 mg by mouth every 6 hours as needed. atorvastatin (LIPITOR) 10 mg tablet Take 10 mg by mouth daily. clopidogrel (PLAVIX) 75 mg tablet Take 75 mg by mouth daily. fluticasone-salmeterol (ADVAIR HFA) 115-21 mcg/Actuation inhaler Inhale 1 Puff as directed 2 times daily. lorazepam (ATIVAN) 1 mg tablet Take 1 mg by mouth 3 times daily. losartan (COZAAR) 100 mg tablet Take 100 mg by mouth daily. meloxicam (MOBIC) 7.5 mg tablet Take 1 Tab by mouth daily. 30 Tab 11 08/04/2010 metoprolol (LOPRESSOR) 25 mg tablet Take 25 mg by mouth 2 times daily. omeprazole (PRILOSEC) 20 mg capsule Take 20 mg by mouth daily. trazodone (DESYREL) 100 mg tablet Take 100 mg by mouth 2 times daily. documented as of this encounter Discharge Disposition Disposition Code Departure Means Destination Auto Discharge Home documented in this encounter Plan of Treatment Not on file documented as of this encounter Procedures Procedure Name Priority Date/Time Associated Diagnosis Comments VITAMIN D (25,OH) Routine 08/04/2010 15: 46 EST Osteoarthritis SED RATE Routine 08/04/2010 15:46 EST Osteoarthritis C REACTIVE PROTEIN Routine 08/04/2010 15 :46 EST Osteoarthritis TSH Routine 08/04/2010 15:46 EST Osteoarthritis documented in this encounter Results * (ABNORMAL) C-REACTIVE PROTEIN (08/04/2010 15:46 EST) C-Reactive Protein 1.2(H) <1.0 mg/dl [facility] Blood specimen (specimen) 08/04/2010 15:46 EST 08/04/2010 15:49 EST Symone Hayden MD CHEMISTRY & BLOOD GA S ORDERABLES [facility] [address] [place] [address] * SED. RATE:WESTERGREN (08/04/2010 15:46 EST) Sed. Rate Westergren 14 0 - 30 mm/hr [facility] Blood specimen (specimen) 08/04/2010 15:46 EST 08/04/2010 15:49 EST Symone Hayden MD HEMATOLOGY & PF4 ORD ERABLES [facility] [address] [address] * VITAMIN D (25,OH) (08/04/2010 15:46 EST) 25OH Vitamin D Tot 46.6 ng/ml [facility] Comment: Reference Range: <10 ng/ml: Deficient 10-30 ng/ml: Insufficient 30-100 ng/ml: Sufficient >100 ng/ml: Toxic Blood specimen (specimen) 08/04/2010 15:46 EST 08/04/2010 15:49 EST Symone Hayden MD CHEMISTRY & BLOOD GA S ORDERABLES Performing Organization Address [facility] Co de Phone Number [facility] [address] [address] * TSH (08/04/2010 15:46 EST) Pathologist [facility] TSH 1.67 0.35 - 5.00 uIU/ml VELOZ ALLEN [facility] Blood specimen (specimen) 08/04/2010 15:46 EST 08/04/2010 15:49 EST Symone Hayden MD CHEMISTRY & BLOOD GA S ORDERABLES Performing Organization Address [facility] de Phone Number [facility] [address] [address] documented in this encounter Visit Diagnoses Diagnosis Osteoarthritis Osteoarthrosis, unspecified whether generalized or localized, unspecified site documented in this encounter Care Teams Fabrication Specialist Relationship Specialty Start Date End Date Brenda Canchola MD [address] [place] [address] [place] [address] PCP - General 08/03/10 documented as of this encounter
--- OUTSIDE RECORDS SUMMARY | 2024-03-04 21:16 | XMS_ITS | Encounter Summary ---
Author Organization [facility] Address [address] [place] [address] Care Team Providers Care Candy Depositing Machine Operator Name Role Phone Brenda Canchola MD Primary Care Provider [phone] Encounter Details Date Type Department Care Team (Late st Contact Info) Description 11/29/2021 Lab Requisition [facility] Pathology & Laboratory Medicine - [facility] [address] [place], [place] [id number] Outr Resulting Lab, Provider Social History Tobacco Use Types Packs/Day Years [...] Procedure Name Priority Date/Time Associated Diagnosis Comments CELIAC DISEASE PANEL Routine 11/29/2021 12:35 EDT documented in this encounter Results * CELIAC DISEASE PANEL (11/29/2021 12:35 EDT) Tissue Transglutaminase Antibody IGA <1.2 <4.0 U/mL 12/01/2021 12:26 EDT [facility] Comment: A negative result may be due to IgA deficiency and does not rule out celiac disease. ? Negative: ??<4.0 U/mL ? Weak Positive: ??4.0 - 10.0 U/mL ? Positive: ??>10.0 U/mL Results were obtained with the [employer] QUANTA Lite R h-tTG IgA ELOY assay on the [employer] DSX. IgA 227 85 - 499 mg/dL 12/01/2021 12:26 EDT [facility] Celiac Disease Interpretation Negative Serology. Celiac disease unlikely. Approximately 10% of patients with celiac disease are seronegative. Patients who are already adhering to a gluten-free diet may also be seronegative. If celiac disease is highly clinically suspected, referral to gastroenterology for additional evaluation is recommended. 12/01/2021 12:26 EDT [facility] Blood VENOUS BLOOD / Unknown 11/29/2021 12:35 EDT 11/29/2021 21:43 EDT Provider Outr Resulting Lab IMMUNOLOGY A ND SEROLOGY ORDERABLES Performing Organization Address City/State/[facility] Co de Phone Number [facility] [address] [place] [address] documented in this encounter Visit Diagnoses Not on filedocumented in this encounter Care Teams Candy Depositing Machine Operator Relationship Specialty Start Date End Date Brenda Canchola MD [address] [place] [address] [place] [address] PCP - General 08/03/10 documented as of this encounter
--- OUTSIDE RECORDS SUMMARY | 2024-03-04 21:16 | XMS_ITS | Encounter Summary ---
Author Organization [facility] Address [address] [place] [address] Care Team Providers Care Mushroom Growth Media Mixer Name Role Phone Brenda Renee MD Primary Care Provider [phone] Encounter Details Date Type Department Care Team (Late st Contact Info) Description 11/02/2011 Results Only [facility] Laboratory Services - [facility] [place] [address] [place], [place] [address] Liss Griffiths MD [address] [place] [address] [place] [address] Social History Tobacco Use Types Packs/Day Years [...] Procedure Name Priority Date/Time Associated Diagnosis Comments SURGICAL PATHOLOGY Routine 11/02/2011 0:00 EDT documented in this encounter Results * SURGICAL PATHOLOGY (11/02/2011 0:00 EDT) Pathology Report: SURGICAL PATHOLOGY REPORT Reports generated via electronic interface contain original data; however they are lacking the format of the original report. Caution should be taken when reading/interpreti ng unformatted reports. Name: ? ALIZE MANJARREZ ? Accession #: ? [id number] ? : ? 1960 (Age: 50) ??F ? Collect Date: ? 11/02/2011 ? Location: ? [facility] ? Receive Date: ? 11/02/2011 ? Provider: LISS GRIFFITHS MD Copy to: BRENDA RENEE MD ? Final Pathologic Diagnosis: ? Endometrium, curettage: 1. ?Endometrial polyp, hyperplastic type. ??See comment. 2. ? Background endometrium with tubal metaplasia. 3. ? No cytologic atypia identified. 4. ? Fragments of benign endocervical polyp. 5. ? Fragments of benign ecto- and endocervical tissue. Comment: ? The prior biopsy ([id number]) was examined. ??(Susannah Hughes)/[facility] Document reviewed and electronically signed by: AME CAMPBELL MD Report ??Date: 11/07/2011 15:58 By the signature above, the attending physician certifies that he/she has personally conducted a gross and/or microscopic examination of the described specimens and rendered or confirmed the above diagnosis. Specimen(s) Received: ? Endometrial curettings Clinical History: ? focal adenoca on previous endo bx Gross Description: ? Received in formalin labelled Alize Manjarrez and endometrial curettings is a 2.5 x 2.0 x 0.4 cm aggregate of parkinson, focally brown and focally white soft and firm tissue admixed with mucinous material which is submitted entirely as (A1) and (A2). (Chikis Fonseca)/mpl End of Report [facility] 11/02/2011 11/02/2011 16: 24 EDT Liss Griffiths MD PATHOLOGY ORDERABLES [facility] [address] [place] [address] documented in this encounter Visit Diagnoses Not on filedocumented in this encounter Care Teams Mushroom Growth Media Mixer Relationship Specialty Start Date End Date Brenda Renee MD [address] [place] [address] [place] [address] PCP - General 08/03/10 documented as of this encounter
--- OUTSIDE RECORDS SUMMARY | 2024-03-04 21:16 | XMS_ITS | Encounter Summary ---
Author Organization [facility] Address [address] [place] [address] Care Team Providers Care Acid Dipper Name Role Phone Unavailable Primary Care Provider Unavailabl e Encounter Details Date Type Department Care Team (Late st Contact Info) Description 09/15/2008 Before PRISM Converted Visit (Maple) [facility] [address] [place] [address] Puja Noland MD [address] [place] [address] Social History Tobacco Use Types Packs/Day Years Used Date Smoking Tobacco: Never Assessed Sex and Gender Information Value Date Recorded Sex Assigned at Not on file Gender Identity Not on file Sexual Orientation Not on file documented as of this encounter Plan of Treatment Not on file documented as of this encounter Procedures Procedure Name Priority Date/Time Associated Diagnosis Comments SURGICAL PATHOLOGY Routine 09/15/2008 0:00 EDT documented in this encounter Results * SURGICAL PATHOLOGY (09/15/2008 0:00 EDT) Pathology Report: SURGICAL PATHOLOGY REPORT ? Reports generated via electronic interface contain original data; ? however they are lacking the format of the original report. ? Caution should be taken when reading/interpreting unformatted reports. ? Name: ? ALIZE MANJARREZ ? Accession #: ? [id number] ? : ? 1960 (Age: 47) ??F ? Collect Date: ? 09/15/2008 ? Location: ? [facility] ? Receive Date: ? 09/15/2008 ? Provider: PUJA VERMONT MD ? Copy to: MICH RENEE MD ? Final Pathologic Diagnosis: ? A. ?Endocervix, curettage: ? 1. ?Detached fragments of squamous intraepithelial lesion, favor low ? grade (VALENTINO I). ??See comment. ? B. ?Cervix, 6 o'clock, biopsy: ? 1. ?Benign squamous mucosa. ??See comment. ? Comment: ? The detached fragments of squamous mucosa with squamous intraepithelial ? lesion are tangentially oriented, which makes determination of low grade versus high grade squamous intraepithelial lesion less straight forward. ??However, a ?? low grade squamous intraepithelial lesion is favored. ??Production Cost Estimator sections ?? were reviewed at the intradepartmental consultation conference. ??Deeper levels ?? have been examined on blocks (A) and (B) (Morales Fernández). ? Document reviewed and electronically signed by: ? Samantha Fernández, ? Report ??Date: 09/23/2008 13:33 ? By the signature above, the attending physician certifies that he/she has ? personally conducted a gross and/or microscopic examination of the described ? specimens and rendered or confirmed the above diagnosis. ? Specimen(s) Received: ? A. ?ECC ? B. ? Bx 6:00 ? Clinical History: ? Pap ??LGSIL (+) for HPV ? Gross Description: ? Received in formalin labelled Avila and 1 ??endocx are 2.5 cc of ? blood-tinged mucus admixed with fragments of red-brown tissue. ??The specimen is submitted entirely as (A). ? Received in formalin labelled Avila and cx 6:00 is a 0.4 x 0.3 x 0.2 cm ? aggregate of soft pink-parkinson mucoid material with a few small tissue fragments. ?? The specimen is submitted intact as (B). ??(MILENA Fonseca)/luxk ? End of Report ? [facility] 09/15/2008 09/15/2008 7:3 8 EDT Puja Noland MD PATHOLOGY ORDERABLES [facility] [address] [place] [address] documented in this encounter Visit Diagnoses Not on filedocumented in this encounter
--- OUTSIDE RECORDS SUMMARY | 2024-03-04 21:16 | XMS_ITS | Encounter Summary ---
Author Organization [facility] Address [address] [place] [address] Care Team Providers Care Wholesale Agronomist Name Role Phone Unavailable Primary Care Provider Unavailabl e Encounter Details Date Type Department Care Team (Late st Contact Info) Description 08/15/2008 Before PRISM Converted Visit (Maple) [facility] - [facility] conversion [address] [place] [address] Brenda Canchola MD [facility] [place], [place] [id number] Social History Tobacco Use Types Packs/Day Years Used Date Smoking Tobacco: Never Assessed Sex and Gender Information Value Date Recorded Sex Assigned at Not on file Gender Identity Not on file Sexual Orientation Not on file documented as of this encounter Plan of Treatment Not on file documented as of this encounter Procedures Procedure Name Priority Date/Time Associated Diagnosis Comments HPV DETECTION, HIGH RISK TYPES Routine 08/15/2008 8:47 EST CYTOPATHOLOGY Routine 08/15/2008 0:00 EST documented in this encounter Results * HUMAN PAPILLOMA VIRUS DNA TEST (08/15/2008 8:47 EST) Specimen Description Cervix, ThinPrep vial [facility] Result Positive for one or more of HPV types 16,18,31,33,35 ,39,45,51,52,5 6,58,59, or 68. These high/intermedi ate risk HPV types are associated with dysplasia and some cervical cancers. [facility] Report Status Final 09/02/2008 [facility] 08/15/2008 8:47 EST 08/27/2008 8:47 EST Brenda Canchola MD MICROBIOLOGY - GENER AL ORDERABLES [facility] [address] [address] * CYTOPATHOLOGY (08/15/2008 0:00 EST) Pathology Report: CYTOPATHOLOGY REPORT ? Reports generated via electronic interface contain original data; ? however they are lacking the format of the original report. ? Caution should be taken when reading/interpreti ng unformatted reports. ? Name: ? ALIZE MANJARREZ ? Accession #: ? [id number] ? : ? 1960 (Age: 47) ??F ?Collect Date: ? 08/15/2008 ? Location: ? [facility] ? Receive Date: ? 08/19/2008 ? Provider: ?BRENDA ERISMAN MD ? Copy to: ? Specimen/Source: ?Pap Test, Cervix/Endocervix, ThinPrep Imaging System ? with manual evaluation ? Last Menstrual Period: ? 2008 ? Other: ? HPVDX - HPV testing requested regardless of diagnosis on current ThinPrep Pap ?? test. ? SPECIMEN ADEQUACY ? Satisfactory for Evaluation ? - transformation zone component present ? GENERAL CATEGORIZATION ? Epithelial Cell Abnormality ? INTERPRETATION ? Squamous Cell Abnormality - Low grade squamous intraepithelial lesion ? (LSIL). ? EDUCATIONAL NOTES/RECOMMENDATI ONS ? [facility] recommends following the 2006 Consensus Guidelines for the Management of Women with Abnormal Cervical Cancer Screening Tests (JLGTD, ? 2007;11(4):201-222 ). ??Consensus guidelines are available online at ? www.ASCCP.org. ? Document reviewed and electronically signed by: ? LINDA FERNANDEZ MD [facility] ? Report Date: ??08/26/2008 12:02 ? End of Report ? [facility] 08/15/2008 08/19/2008 Brenda Canchola MD PATHOLOGY ORDERABLES [facility] [address] [place] [address] documented in this encounter Visit Diagnoses Not on filedocumented in this encounter
--- OUTSIDE RECORDS SUMMARY | 2024-03-04 21:16 | XMS_ITS | Encounter Summary ---
Author Organization [facility] Address [address] [place] [address] Care Team Providers Care Nursery Worker Name Role Phone Brenda Canchola MD Primary Care Provider [phone] Encounter Details Date Type Department Care Team (Late st Contact Info) Description 10/04/2021 Lab Requisition [facility] Pathology & Laboratory Medicine - [facility] [address] [place], [place] [address] Outr Resulting Lab, Provider Social History Tobacco [...] Procedure Name Priority Date/Time Associated Diagnosis Comments ZZCOVID-19 TEST [facility] PCR Today 10/03/2021 17:23 EDT COVID-19 TESTING Routine 10/03/2021 17:2 3 EDT documented in this encounter Results * COVID-19 TEST [facility] PCR (10/03/2021 17:23 EDT) Swab 10/03/2021 17:2 3 EDT 10/04/2021 21:43 EDT Provider Outr Resulting Lab MICROBIOLOGY - GENERAL ORDERABLES [facility] [address] [place] [address] * COVID-19 TESTING (10/03/2021 17:23 EDT) COVID-19 rt-PCR Result Negative Negative 10/05/2021 13:50 EDT [facility] Comment: This test has not been FDA cleared or approved. This test has been authorized by FDA under an EUA for use by authorized laboratories. This test has been authorized only for detection of nucleic acid from 2019-nCoV, not for any other viruses or pathogens. This test is only authorized for the duration of the declaration that circumstances exist justifying the authorization of emergency use of in vitro diagnostic tests for detection and/or diagnosis of 2019-nCoV under section 564(b)(1) of Act, 21 U.S.C ?? 360bbb-3(b) (1), unless the authorization is terminated or revoked sooner. Negative results do not preclude 2019-nCoV infection and should not be used as the sole basis for treatment or other patient management decisions. Negative results must be combined with clinical observations, patient history, and epidemiological information. Testing was performed using the flaquito SARS-CoV-2 assay ([employer] on the Flaquito 6800 System Performing Lab Flaquito 68[address] [facility] 10/05/2021 13:50 EDT [facility] Swab 10/03/2021 17:2 3 EDT 10/04/2021 21:43 EDT Provider Outr Resulting Lab MICROBIOLOGY - GENERAL ORDERABLES [facility] [address] [place] [address] documented in this encounter Visit Diagnoses Not on filedocumented in this encounter Care Teams Nursery Worker Relationship Specialty Start Date End Date Brenda Canchola MD [address] [place] [address] [address] [place], [place] [address] PCP - General 08/03/10 documented as of this encounter
--- OUTSIDE RECORDS SUMMARY | 2024-03-04 21:16 | XMS_ITS | Encounter Summary ---
Author Organization [facility] Address [address] [place] [address] Care Team Providers Care Waste Disposal Attendant Name Role Phone Brenda Renee MD Primary Care Provider [phone] Encounter Details Date Type Department Care Team (Late st Contact Info) Description 12/18/2012 Results Only [facility] Laboratory Services - [facility] [place] [address] [place], [place] [phone] Brenda Renee MD [facility] [place] [address] Social History Tobacco Use Types [...] Procedure Name Priority Date/Time Associated Diagnosis Comments PAP TEST- RESULT ONLY Routine 12/18/2012 0:00 EDT documented in this encounter Results * PAP TEST- RESULT ONLY (12/18/2012 0:00 EDT) Pathology Report: CYTOPATHOLOGY REPORT Reports generated via electronic interface contain original data; however they are lacking the format of the original report. Caution should be taken when reading/interpreti ng unformatted reports. Name: ? ALIZE MANJARREZ ? Accession #: ? [id number] ? : ? 1960 (Age: 52) ??F ?Collect Date: ? 12/18/2012 ? Location: ? [facility] ? Receive Date: ? 12/19/2012 ? Provider: BRENDA RENEE MD Copy to: ? Final Report SPECIMEN ADEQUACY ? Satisfactory for Evaluation - transformation zone component present GENERAL CATEGORIZATION ? Negative for Intraepithelial Lesion or Malignancy ?? Last Menstrual Period: 2007 Previous Gynecologic Pathology: LSIL: 08/15/08 HPV: + VALENTINO I Treatment History: Miscellaneous treatment: biopsy Specimen/Source: ??Pap Test, Cervix/Endocervix, ThinPrep Imaging System with manual evaluation Document reviewed and electronically signed by: ? Brenda Chang, [facility](ASCP) ? Report ??Date: 12/26/2012 13:52 HPV with Pap Test ? Date Ordered: ? 12/25/2012 ? Status: ?? Signed Out ?Date Complete: ? 12/28/2012 ? By: ??System Interface ? Date Reported: ? 12/28/2012 ? Interpretation RESULT: Negative for HPV. No E6 or E7 mRNA is detected from HPV types 16,18,31,33,35, 39,45,51,52,56,58, 59,66, and 68 by charge weigher mediated amplification. Comments Document reviewed and electronically signed by: ? System Interface ? Report date: 12/28/2012 By the signature above, the attending physician certifies that he/she has personally conducted a gross and/or microscopic examination of the described specimens and rendered or confirmed the above diagnosis. End of Report [facility] 12/18/2012 12/19/2012 Brenda Renee MD PATHOLOGY ORDERABLES [facility] [address] [place] [address] documented in this encounter Visit Diagnoses Not on filedocumented in this encounter Care Teams Waste Disposal Attendant Relationship Specialty Start Date End Date Brenda Renee MD [address] [place] [address] [place] [address] PCP - General 08/03/10 documented as of this encounter
--- OUTSIDE RECORDS SUMMARY | 2024-03-04 21:16 | XMS_ITS | Encounter Summary ---
Author Organization [facility] Address [address] [place] [address] Care Team Providers Care Hair Cutter Name Role Phone Unavailable Primary Care Provider Unavailabl e Encounter Details Date Type Department Care Team (Late st Contact Info) Description 12/01/2005 Results Only [facility] [address] [place] [address] Santos Shay MD [address] [place] [address] [place] [phone] Social History Tobacco Use Types Packs/Day Years Used Date Smoking Tobacco: Never Assessed Sex and Gender Information Value Date Recorded Sex Assigned at Not on file Gender Identity Not on file Sexual Orientation Not on file documented as of this encounter Plan of Treatment Not on file documented as of this encounter Procedures Procedure Name Priority Date/Time Associated Diagnosis Comments SURGICAL PATHOLOGY Routine 12/01/2005 0:00 EDT documented in this encounter Results * SURGICAL PATHOLOGY (12/01/2005 0:00 EDT) Pathology Report: SURGICAL PATHOLOGY REPORT Reports generated via electronic interface contain original data; however they are lacking the format of the original report. Caution should be taken when reading/interpreting unformatted reports. Name: ? ALIZE MANJARREZ ? Accession #: ? [id number] ? : ? 1960 (Age: 45) ??F ? Collect Date: ? 12/01/2005 ? Location: ? [facility] ? Receive Date: ? 12/01/2005 ? Provider: SANTOS SHAY MD Copy to: MERT RODRIGUEZ MD ? Final Pathologic Diagnosis: ?Endometrium, biopsy: 1. ?Disordered proliferative endometrium with tubal metaplasia and extensive stromal breakdown. ??See comment. 2. ?Scant fragments of benign endocervical epithelium. Comment: ? This case was reviewed at intradepartmental consultation conference. ?? Document reviewed and electronically signed by: Molly Osorio MD Report ??Date: 12/07/2005 19:14 By the signature above, the attending physician certifies that he/she has personally conducted a gross and/or microscopic examination of the described specimens and rendered or confirmed the above diagnosis. Specimen(s) Received: ? Endometrial Clinical History: ? Menometrorrhagia x 4 mos Gross Description: ? Received in formalin labelled Avila and endometrium is a 5.5 x 3.2 x 0.5 cm aggregate of fragments of parkinson-pink soft tissue with clotted blood which is entirely submitted as (A1) and (A2). ??(Gwyn Oliveros/[facility] ?? End of Report [facility] 12/01/2005 12/01/2005 15: 25 EDT Santos Shay MD PATHOLOGY ORDERABLES [facility] [address] [place] [address] documented in this encounter Visit Diagnoses Not on filedocumented in this encounter
--- OUTSIDE RECORDS SUMMARY | 2024-03-04 21:16 | XMS_ITS | Clinical Summary ---
Author Organization [facility] Address [address] [place] [address] Care Team Providers Care Rn Digestive Name Role Phone Brenda Canchola MD Primary Care Provider [phone] Allergies Active Allergy Reactions Criticality Noted Date [...] mouth daily. 30 Tab 11 08/04/2010 Active Surgical History Surgery Date Site/Laterality Comments SECTION 1982 KNEE ARTHROSCOPY left knee Medical History Medical History Date Comments Heart attack ([facility]) 2009 cath with 4 stents Diabetes mellitus ([facility]) bor derline Asthma Hypertension Depression Anxiety Family History Medical History Relation Comments Arthritis Father Arthritis Mother osteoarthritis Relation Status Comments Father Mother Social History Tobacco Use Types Packs/Day Years [...] on file Sexual Orientation Not on file Obstetrics History Last Filed Vital Signs Vital Sign Reading Time Taken Comments Blood Pressure 146/82 08/04/2010 1252 EST Pulse 84 08/04/2010 1252 EST Temperature - - Respiratory Rate - - Oxygen Saturation - - Inhaled Oxygen Concentration - - Weight 122.9 kg (271 lb) 08/04/2010 1252 EST Height 161.3 cm (5' 3.5) 08/04/2010 1252 EST Body Mass Index 47.25 08/04/2010 1252 EST Plan of Treatment Health Maintenance Due Date Last Done Comments RSV Immunization ( o r 60+ Years) (1 - 1-dose 60+ series) 2019 COVID-19 Vaccine (2022-24 season) 2023 Hepatitis C Screen Completed 02/05/2019 Procedures Procedure Name Priority Date/Time Associated Diagnosis Comments HEPATITIS C AB W REFLEX TO HCV RNA BY PCR Routine 02/05/2019 6:45 EDT from Last 3 Months or Most Recently Relevant to Health Maintenance Results * HEPATITIS C AB W REFLEX TO HCV RNA BY PCR (02/05/2019 6:45 EDT) HEPATITIS C AB W/[place] [facility] [place] 02/05/2019 8:14 EDT [facility] Comment:Expected Values: Neg ative. 02/05/2019 6:45 EDT 02/05/2019 6:52 EDT Nathan Michael MD CHEMISTRY & BLOOD GA S ORDERABLES [facility] from Last 3 Months or Most Recently Relevant to Health Maintenance Care Teams Rn Digestive Relationship Specialty Start Date End Date Brenda Canchola MD [address] [place] [address] [place] [address] PCP - General 08/03/10
--- OUTSIDE RECORDS SUMMARY | 2024-03-04 21:16 | XMS_ITS | Encounter Summary ---
Author Organization [facility] Address [address] [place] [address] Care Team Providers Care Wig Dresser Name Role Phone Brenda Canchola MD Primary Care Provider [phone] Encounter Details Date Type Department Care Team (Latest Contact Info) Description 02/04/2019 10:07 EDT - 02/04/2019 23:59 EDT Hospital Encounter [facility] [address] [place] [address] Unknown, Provider, Discharge Disposition: Home or Self Care Social History Tobacco Use Types Packs/Day Years [...] Discharge Disposition Disposition Code Departure Means Destination Home or Self Long Term documented in this encounter Plan of Treatment Not on file documented as of this encounter Visit Diagnoses Not on filedocumented in this encounter Care Teams Wig Dresser Relationship Specialty Start Date End Date Brenda Canchola MD [facility] [address] PCP - General 08/03/10 documented as of this encounter
--- OUTSIDE RECORDS SUMMARY | 2024-03-04 21:16 | XMS_ITS | Encounter Summary ---
Author Organization [facility] Address [address] [place] [address] Care Team Providers Care Furniture Finisher Name Role Phone Unavailable Primary Care Provider Unavailabl e Encounter Details Date Type Department Care Team (Late st Contact Info) Description 03/11/2009 Orders Only [facility] Laboratory Services - [facility] ([facility]) [address] [place] [address] Liss Griffiths MD [address] [place] [address] [place] [address] Social History Tobacco Use Types Packs/Day Years Used Date Smoking Tobacco: Never Assessed Sex and Gender Information Value Date Recorded Sex Assigned at Not on file Gender Identity Not on file Sexual Orientation Not on file documented as of this encounter Plan of Treatment Not on file documented as of this encounter Procedures Procedure Name Priority Date/Time Associated Diagnosis Comments CYTOPATHOLOGY Routine 03/11/2009 0:00 EDT documented in this encounter Results * CYTOPATHOLOGY (03/11/2009 0:00 EDT) Pathology Report: CYTOPATHOLOGY REPORT ? Reports generated via electronic interface contain original data; ? however they are lacking the format of the original report. ? Caution should be taken when reading/interpreti ng unformatted reports. ? Name: ? ALIZE MANJARREZ ? Accession #: ? [id number] ? : ? 1960 (Age: 48) ??F ?Collect Date: ? 03/11/2009 ? Location: ? [facility] ? Receive Date: ? 03/12/2009 ? Provider: ?LISS CARLIE MD ? Copy to: ? Specimen/Source: ?Pap Test, Cervix/Endocervix, ThinPrep Imaging System ? with manual evaluation ? Last Menstrual Period: ? Previous Gynecologic Pathology: ? LSIL: 2/6/09 ? HPV: 2/6/09 ? VALENTINO I: 3/9/9 ? Treatment History: ? Miscellaneous treatment: ECC 3/9/09 ? SPECIMEN ADEQUACY ? Satisfactory for Evaluation ? - transformation zone component present ? - scant squamous epithelial component secondary to excessive mucus ? GENERAL CATEGORIZATION ? Negative for Intraepithelial Lesion or Malignancy ? INTERPRETATION ? Reactive cellular changes associated with inflammation present (includes ?? repair). ? Document reviewed and electronically signed by: ? Kory B. Ambaye, MD ? Report Date: ??03/23/2009 16:04 ? End of Report ? [facility] 03/11/2009 03/12/2009 Liss Griffiths MD PATHOLOGY ORDERABLES Performing Organization Address City/State/[facility] Co de Phone Number [facility] [address] [place] [address] documented in this encounter Visit Diagnoses Not on filedocumented in this encounter
--- OUTSIDE RECORDS SUMMARY | 2024-03-04 21:16 | XMS_ITS | Encounter Summary ---
Author Organization [facility] Address [address] [place] [address] Care Team Providers Care Chemical Instrumentation Officer Name Role Phone Brenda Canchola MD Primary Care Provider [phone] Encounter Details Date Type Department Care Team (Late st Contact Info) Description 08/17/2020 Lab Requisition [facility] Pathology & Laboratory Medicine - [address] [phone] Outr Resulting Lab, Provider Social History Tobacco [...] Procedure Name Priority Date/Time Associated Diagnosis Comments VLADISLAV INFLUENZA A AND B, RSV PCR Routine 08/17/2020 12:27 EST documented in this encounter Results * INFLUENZA A AND B,RSV PCR (08/17/2020 12:27 EST) FLU A RNA Result (FLARES) Negative Negative 08/17/2020 23:57 EST [facility] FLU B RNA Result (FLBRES) Negative Negative 08/17/2020 23:57 EST [facility] RSV RNA Result (RSVRES) Negative Negative 08/17/2020 23:57 EST [facility] Performing Lab [place] [facility] 08/17/2020 23:57 EST [facility] Swab ENTIRE NASOPHARYNX / Unknown 08/17/2020 12:27 EST 08/17/2020 17:13 EST Provider Outr Resulting Lab MICROBIOLOGY - GENERAL ORDERABLES Performing Organization Address City/State/[facility] Co de Phone Number [facility] [address] [place] [address] documented in this encounter Visit Diagnoses Not on filedocumented in this encounter Care Teams Chemical Instrumentation Officer Relationship Specialty Start Date End Date Brenda Canchola MD [address] [place] [address] [place] [address] PCP - General 08/03/10 documented as of this encounter
--- OUTSIDE RECORDS SUMMARY | 2024-03-04 21:16 | XMS_ITS | Encounter Summary ---
Author Organization [facility] Address [address] [place] [address] Care Team Providers Care Rail Detector Car Operator Name Role Phone Brenda Canchola MD Primary Care Provider [phone] Encounter Details Date Type Department Care Team (Late st Contact Info) Description 10/14/2021 Lab Requisition [facility] Pathology & Laboratory Medicine - [facility] [address], [place] [id number] Outr Resulting Lab, Provider Social History Tobacco [...] Comments ZZCOVID-19 TEST [facility] PCR Today 10/13/2021 18:40 EDT COVID-19 TESTING Routine 10/13/2021 18:4 0 EDT documented in this encounter Results * COVID-19 TEST [facility] PCR (10/13/2021 18:40 EDT) Swab 10/13/2021 18:4 0 EDT 10/14/2021 17:01 EDT Provider Outr Resulting Lab MICROBIOLOGY - GENERAL ORDERABLES [facility] [address] [place] [address] * COVID-19 TESTING (10/13/2021 18:40 EDT) COVID-19 rt-PCR Result Negative Negative 10/15/2021 11:43 EDT [facility] Comment: This test has not [...] performed using the flaquito SARS-CoV-2 assay ([employer] on the Flaquito 6800 System Performing Lab [employer] [address] [facility] Lab 10/15/2021 11:43 EDT [facility] Swab 10/13/2021 18:4 0 EDT 10/14/2021 17:01 EDT Provider Outr Resulting Lab MICROBIOLOGY - GENERAL ORDERABLES [facility] [address] [place] [address] documented in this encounter Visit Diagnoses Not on filedocumented in this encounter Care Teams Rail Detector Car Operator Relationship Specialty Start Date End Date Brenda Canchola MD [address] [place] [address] [address] [place], [place] [id number] PCP - General 08/03/10 documented as of this encounter
--- OUTSIDE RECORDS SUMMARY | 2024-03-04 21:16 | XMS_ITS | Encounter Summary ---
Author Organization [facility] Address [address] [place] [address] Care Team Providers Care Piano Professor Name Role Phone Brenda Canchola MD Primary Care Provider [phone] Encounter Details Date Type Department Care Team (Late st Contact Info) Description 02/05/2019 Historical Results Only [facility] Radiology Results [address] [place] [address] Unknown, Provider, Social History Tobacco Use Types Packs/Day Years [...] Procedure Name Priority Date/Time Associated Diagnosis Comments CT ANGIO CHEST PE PROTOCOL 02/05/2019 22:38 EDT POCT GLUCOSE, INTERFACED Routine 02/05/2019 19:27 EDT US EXTREMITY 02/05/2019 15:12 EDT TROPONIN I Routine 02/05/2019 13:30 EDT POCT GLUCOSE, INTERFACED Routine 02/05/2019 11:54 EDT POCT GLUCOSE, INTERFACED Routine 02/05/2019 8:02 EDT TRANSTHORACIC ECHO (TTE) COMPLETE 02/05/2019 7:06 EDT COMPLETE BLOOD COUNT WITH DIFFERENTIAL (AUTO) Routine 02/05/2019 6:45 EDT HEPATITIS C AB W REFLEX TO HCV RNA BY PCR Routine 02/05/2019 6:45 EDT TROPONIN I Routine 02/05/2019 6:45 EDT HEPATITIS B SURFACE ANTIGEN Routine 02/05/2019 6:45 EDT MAGNESIUM Routine 02/05/2019 6:45 EDT LIPID PROFILE (INCLUDES CHOLESTEROL, TRIGLYCERIDES, HDL, LDL) Routine 02/05/2019 6:45 EDT COMPREHENSIVE METABOLIC PANEL (CMP) Routine 02/05/2019 6:45 EDT POCT GLUCOSE, INTERFACED Routine 02/05/2019 0:02 EDT documented in this encounter Results * CT ANGIO CHEST PE PROTOCOL (02/05/2019 22:38 EDT) Anatomical Region Laterality Modality Chest Other 02/05/2019 22:3 8 EDT Narrative 02/05/2019 22:38 EDT ? EXAM: CAT SCAN/CTA CHEST PE PROTOCOL ?EX. D/ (1956) ? CLINICAL INFORMATION: ? elevated ddimer, mild troponemia ? EXAM: ? CT Angiography Chest With Contrast ? EXAM DATE/TIME: ? 02/05/2019 00:00 ? CLINICAL HISTORY: ? 58 years old, female; Other: Elevated d dimer; Additional info: ? Elevated ddimer, mild troponemia ? TECHNIQUE: ? Imaging protocol: Axial computed tomographic angiography images ? of the chest with intravenous contrast using CT angiography ? protocol. Coronal and sagittal reformatted images were created ? and reviewed. ? 3D rendering: MIP reconstructed images were created and ? reviewed. ? Radiation optimization: All CT scans at this facility use at ? least one of these dose optimization techniques: automated ? exposure control; mA and/or kV adjustment per patient size ? (includes targeted exams where dose is matched to clinical ? indication); or iterative reconstruction. ? Contrast material: OMNIPAQUE 350;Contrast volume: 100 ? ml;Contrast route: IV; ? COMPARISON: ? CR CHEST (PA ?? LAT) 02/04/2019 22:45 ? FINDINGS: ? Pulmonary arteries: Hazy, subcentimeter calcification in the ? right lower lobar pulmonary artery. No filling defects. No acute ? emboli are seen. ? Aorta: Mild aortic atherosclerosis. No aortic aneurysm. Mild ? dilation of the ascending aorta, 36 x 38 mm. Normal caliber of ? the descending aorta. No aortic dissection. ? Lungs: Motion in the lungs limits detailed assessment. Linear ? subpleural opacity in the left lower lobe most consistent with ? subsegmental atelectasis. Small focus of scarring in the left ? upper lobe associated with a subpleural 7 mm nodular density. ? Pleural space: No pneumothorax. No pleural effusion. ? Heart: Mild cardiomegaly. Coronary atherosclerosis. ? Adrenals: Thickened adrenal glands without measurable nodules, ? likely hypertrophy. ? Lymph nodes: No enlarged lymph nodes. ? Bones/joints: Large posterior disc osteophyte complexes in the ? thoracic spine, most pronounced at T8-T9 resulting in severe ? central canal stenosis at this level. Additional smaller ? posterior disc osteophyte complexes are present at multiple ? levels. This is a chronic finding. ? Soft tissues: No suspicious lesions. ? IMPRESSION: ? 1. No pulmonary emboli are seen. ? PAGE 1 ? Signed Report ? (CONTINUED) ? 2. Hazy, subcentimeter calcification in the right lower lobar ? pulmonary artery. Could reflect the presence of a previous ? pulmonary embolus. ? 3. Mild cardiomegaly. ? 4. Subsegmental atelectasis in the left lower lobe. ? 5. Small focus of scarring in the left upper lobe associated ? with a subpleural 7 mm nodular density. Unclear if this ? represents a true pulmonary nodule or is scarring associated. ? Fleischner recommendations for 6-8 mm nodules are: ? - Single, solid, low risk- CT at 6-12 months, then consider CT ? at 18-24 months ? - Single, solid, high risk- CT at 6-12 months, then at 18-24 ? months ? 6. Mild dilation of the ascending aorta, 36 x 38 mm. ? 7. 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 ? REPORT SIGNED IN OTHER VENDOR SYSTEM 02/05/2019 ?Reported By: Doris Posadas MD ? CC: ? Transcribed Date/Time: 02/05/2019 (7748) ? Safety Investigator/Cause Analyst: ? Printed Date/Time: 03/27/2019 (3828) ? PAGE 2 ? Signed Report ? Procedure Note Doris Posadas MD - 05/14/2019 EXAM: CAT SCAN/CTA CHEST PE PROTOCOL EX. D/ (1956) CLINICAL INFORMATION: elevated ddimer, mild troponemia EXAM: CT Angiography Chest With Contrast EXAM DATE/TIME: 02/05/2019 00:00 CLINICAL HISTORY: 58 years old, female; Other: Elevated d dimer; Additional info: Elevated ddimer, mild troponemia TECHNIQUE: Imaging protocol: Axial computed tomographic angiography images of the chest with intravenous contrast using CT angiography protocol. Coronal and sagittal reformatted images were created and reviewed. 3D rendering: MIP reconstructed images were created and reviewed. Radiation optimization: All CT scans at this facility use at least one of these dose optimization techniques: automated exposure control; mA and/or kV adjustment per patient size (includes targeted exams where dose is matched to clinical indication); or iterative reconstruction. Contrast material: OMNIPAQUE 350;Contrast volume: 100 ml;Contrast route: IV; COMPARISON: CR CHEST (PA LAT) 02/04/2019 22:45 FINDINGS: Pulmonary arteries: Hazy, subcentimeter calcification in the right lower lobar pulmonary artery. No filling defects. No acute emboli are seen. Aorta: Mild aortic atherosclerosis. No aortic aneurysm. Mild dilation of the ascending aorta, 36 x 38 mm. Normal caliber of the descending aorta. No aortic dissection. Lungs: Motion in the lungs limits detailed assessment. Linear subpleural opacity in the left lower lobe most consistent with subsegmental atelectasis. Small focus of scarring in the left upper lobe associated with a subpleural 7 mm nodular density. Pleural space: No pneumothorax. No pleural effusion. Heart: Mild cardiomegaly. Coronary atherosclerosis. Adrenals: Thickened adrenal glands without measurable nodules, likely hypertrophy. Lymph nodes: No enlarged lymph nodes. Bones/joints: Large posterior disc osteophyte complexes in the thoracic spine, most pronounced at T8-T9 resulting in severe central canal stenosis at this level. Additional smaller posterior disc osteophyte complexes are present at multiple levels. This is a chronic finding. Soft tissues: No suspicious lesions. IMPRESSION: 1. No pulmonary emboli are seen. PAGE 1 Signed Report (CONTINUED) 2. Hazy, subcentimeter calcification in the right lower lobar pulmonary artery. Could reflect the presence of a previous pulmonary embolus. 3. Mild cardiomegaly. 4. Subsegmental atelectasis in the left lower lobe. 5. Small focus of scarring in the left upper lobe associated with a subpleural 7 mm nodular density. Unclear if this represents a true pulmonary nodule or is scarring associated. Fleischner recommendations for 6-8 mm nodules are: - Single, solid, low risk- CT at 6-12 months, then consider CT at 18-24 months - Single, solid, high risk- CT at 6-12 months, then at 18-24 months 6. Mild dilation of the ascending aorta, 36 x 38 mm. 7. Spondylosis in the thoracic spine resulting in severe central canal stenosis at T8-T9. REPORT SIGNED IN OTHER VENDOR SYSTEM 02/05/2019 Reported By: Doris Posadas MD CC: Transcribed Date/Time: 02/05/2019 (169) Safety Investigator/Cause Analyst: Printed Date/Time: 03/27/2019 (480) PAGE 2 Signed Report Ruby Frederick MD IMG CT ORDERABLES * (ABNORMAL) POCT GLUCOSE (02/05/2019 19:27 EDT) Glucose, POC 121(H) 70 - 100 mg/dL 02/05/2019 19:[address] [facility] 02/05/2019 19:2 7 EDT 02/05/2019 19:31 EDT Nathan Michael MD POINT OF CARE TEST O RDERABLES [facility] * US EXTREMITY (02/05/2019 15:12 EDT) Anatomical Region Laterality Modality Other 02/05/2019 15:1 2 EDT Narrative 02/05/2019 15:15 EDT ? EXAM: ULTRASOUND/DOPPLER VEIN LOWER EXT B EX. D/ (1455) ? CLINICAL INFORMATION: ? SBLE - Swelling bilat. lower ext ? INDICATION: SBLE - Swelling bilat. lower ext. ? COMPARISON: None. ? TECHNIQUE: Real-time ultrasound scan of the veins of the right lower ? extremity with color Doppler flow, spectral waveform analysis and ? compression. ? FINDINGS: ? Right lower extremity: ?Deep veins: Unremarkable. No DVT in the visualized right common ? femoral, profunda femoris, femoral or popliteal veins. Veins ? demonstrate normal color flow, are normally compressible, with normal ? phasic flow and/or augmentation response. No DVT identified within ? the proximal calf the veins. ?Superficial veins: Unremarkable. No thrombus in the visualized ? right great saphenous vein. ?Soft tissues: No acute findings. No popliteal cyst. ? Left lower extremity: ?Deep veins: Unremarkable. No DVT in the visualized left common ? femoral, profunda femoris, femoral or popliteal veins. Veins ? demonstrate normal color flow, are normally compressible, with normal ? phasic flow and/or augmentation response. No DVT identified within ? the proximal calf the veins. ?Superficial veins: Unremarkable. No thrombus in the visualized ? left great saphenous vein. ?Soft tissues: No acute findings. No popliteal cyst. ? IMPRESSION: Normal right and left lower extremity duplex venous ? ultrasound. ? REPORT SIGNED IN OTHER VENDOR SYSTEM 02/05/2019 ?Reported By: Tay Velazquez MD ? CC: ? Transcribed Date/Time: 02/05/2019 (2295) ? Safety Investigator/Cause Analyst: ? Printed Date/Time: 03/27/2019 (1817) ? PAGE 1 ? Signed Report ? Procedure Note Tay Velazquez MD - 05/14/2019 EXAM: ULTRASOUND/DOPPLER VEIN LOWER EXT B EX. D/ (0604) CLINICAL INFORMATION: SBLE - Swelling bilat. lower ext INDICATION: SBLE - Swelling bilat. lower ext. COMPARISON: None. TECHNIQUE: Real-time ultrasound scan of the veins of the rightlower extremity with color Doppler flow, spectral waveform analysis and compression. FINDINGS: Right lower extremity: Deep veins: Unremarkable. No DVT in the visualized right common femoral, profunda femoris, femoral or popliteal veins. Veins demonstrate normal color flow, are normally compressible, withnormal phasic flow and/or augmentation response. No DVT identified within the proximal calf the veins. Superficial veins: Unremarkable. No thrombus in the visualized right great saphenous vein. Soft tissues: No acute findings. No popliteal cyst. Left lower extremity: Deep veins: Unremarkable. No DVT in the visualized left common femoral, profunda femoris, femoral or popliteal veins. Veins demonstrate normal color flow, are normally compressible, withnormal phasic flow and/or augmentation response. No DVT identified within the proximal calf the veins. Superficial veins: Unremarkable. No thrombus in the visualized left great saphenous vein. Soft tissues: No acute findings. No popliteal cyst. IMPRESSION: Normal right and left lower extremity duplex venous ultrasound. REPORT SIGNED IN OTHER VENDOR SYSTEM 02/05/2019 Reported By: Tay Velazquez MD CC: Transcribed Date/Time: 02/05/2019 (1515) Safety Investigator/Cause Analyst: Printed Date/Time: 03/27/2019 (1817) PAGE 1 Signed Report Ruby Frederick MD IMG US ORDERABLES * TROPONIN I (02/05/2019 13:30 EDT) Troponin I (ng/mL) <0.034 0.000 - 0.034 ng/mL 02/05/2019 14:[address] [facility] Comment: Interpretation comments: ??Cutoff for a positive troponin result is set at the 99th percentile of the upper reference limit. ??Elevated troponin must always be interpreted in the context of the clinical presentation. ?Serial troponin testing 3-6 hr from baseline is favored over relying on a single troponin level. ?? The results of this assay can be falsely lowered due to the consumption of Biotin. 02/05/2019 13:3 0 EDT 02/05/2019 13:36 EDT Ruby Frederick MD CHEMISTRY & BLOOD GA S ORDERABLES Performing Organization Address [facility]/ZIP Co de Phone Number [facility] * (ABNORMAL) POCT GLUCOSE (02/05/2019 11:54 EDT) Glucose, POC 223(H) 70 - 100 mg/dL 02/05/2019 11:[address] [facility] 02/05/2019 11:5 4 EDT 02/05/2019 11:57 EDT Nathan Michael MD POINT OF CARE TEST O RDERABLES Performing Organization Address [facility]/ZIP Co de Phone Number [facility] * (ABNORMAL) POCT GLUCOSE (02/05/2019 8:02 EDT) Glucose, POC 138(H) 70 - 100 mg/dL 02/05/2019 8:[address] [facility] 02/05/2019 8:02 EDT 02/05/2019 8:03 EDT Nathan Michael MD POINT OF CARE TEST O RDERABLES Performing Organization Address [facility]/ZIP Co de Phone Number [facility] * TRANSTHORACIC ECHO (TTE) COMPLETE (02/05/2019 7:06 EDT) Anatomical Region Laterality Modality Ultrasound 02/05/2019 7:06 EDT Narrative 02/05/2019 7:06 EDT ?[facility] ?[facility] [address], [place] [address] ? [id number] ? E C H O C A R D I O G R A M ? R E P O R T NAME: ALIZE MANJARREZ ? : 58 ? LOCATION: 2S ? TELEPHONE: [phone] ?MR#: [id number] ? *[facility] [place] [facility]* *[facility]* [address] [place] [address] Date of study: 02/05/2019 Transthoracic Echocardiography M-mode, complete 2D, complete spectral Doppler, and color Doppler *STUDY CONCLUSIONS* Summary: 1. Left ventricle: The cavity size was normal. Wall thickness was ?? increased increased in a pattern of mild to moderate LVH. Systolic ?? function was normal. The estimated ejection fraction was 60-65%. Wall ?? motion was normal; there were no regional wall motion abnormalities. 2. Ascending aorta: The ascending aorta was mildly dilated. 3. Aortic arch: The aortic arch was normal in size; it had a single ?? discrete atheroma stage III. 4. Left atrium: The atrium was mildly dilated. 5. Right ventricle: The cavity size was normal. Wall thickness was ?? normal. Systolic function was normal. *PATIENT PRESENTATION* Height: ? 160cm (63in ) S/D Pressure: 119 / 66 Weight: ? 108.9kg (239.5lb ) BSA: ?2.26m S 2 Test start time: ??07:00 AM. Test stop time: ??07:56 AM. PERFORMING ??[facility] ORDERING ?Nathan Michael REFERRING ?? Nathan Michael *PROCEDURE DATA* Procedure information: ??The patient was identified by two identifiers. This study was interpreted by [facility]. Pertinent images and digital data are archived for permanent storage and are available for subsequent review. No prior study was available for comparison. ??Study status: Routine. Transthoracic echocardiography. ??M-mode, complete 2D, complete ?[facility] ?[facility] [address] [place], [place] [address] ? [id number] ? E C H O C A R D I O G R A M ? R E P O R T NAME: ALIZE MANJARREZ ? : 58 ? LOCATION: 2S ? TELEPHONE: [phone] ?MR#: [id number] ? spectral Doppler, and color Doppler. A Transthoracic Echocardiogram was performed. Scanning was performed from the parasternal, apical, subcostal, and suprasternal notch acoustic windows. Images were obtained using a [facility] IE[facility] 2 cardiac ultrasound machine. Image quality was fair. The study was technically limited due to body habitus. ??Study completion: ??The patient tolerated the procedure well. There were no complications. *INDICATIONS AND HISTORY* Indications: ??R/o CHF *CARDIAC ANATOMY* Left ventricle: ??The cavity size was normal. Wall thickness was increased increased in a pattern of mild to moderate LVH. Systolic function was normal. The estimated ejection fraction was 60-65%. Wall motion was normal; there were no regional wall motion abnormalities. Diastolic parameters were normal. Aortic valve: ??Poorly visualized. ??Normal thickness leaflets. Mobility was not restricted. ??Doppler: ??Transvalvular velocity was within the normal range. There was no stenosis. There was no significant regurgitation. ?VTI ratio of LVOT to aortic valve: 0.8. Valve area (VTI): 2.3cm S 2. Indexed valve area (VTI): 1cm S 2/m S 2. Mean velocity ratio of LVOT to aortic valve: 0.59. Valve area (Vmean): 1.7cm S 2. Indexed valve area (Vmean): 0.7cm S 2/m S 2. ?Mean gradient (S): 10.8mm Hg. Aorta: ??Aortic root: The aortic root was normal in size. Ascending aorta: The ascending aorta was mildly dilated. Aortic arch: The aortic arch was normal in size; it had a single discrete atheroma stage III. Mitral valve: ?? Structurally normal valve. ?? Mobility was not restricted. ??Doppler: ??Transvalvular velocity was within the normal range. There was no evidence for stenosis. There was no significant regurgitation. Left atrium: ??The atrium was mildly dilated. Right ventricle: ??The cavity size was normal. Wall thickness was normal. Systolic function was normal. Pulmonic valve: ?Doppler: ??Transvalvular velocity was within the normal range. There was no evidence for stenosis. There was no significant regurgitation. Tricuspid valve: ?? Structurally normal valve. ?Doppler: ??Transvalvular velocity was within the normal range. There was no evidence for stenosis. There was trivial regurgitation. Pulmonary artery: ?? Pulmonary systolic pressure was within the normal range. Right atrium: ??The atrium was at the upper limits of normal in size. Pericardium: ??There was no pericardial effusion. Systemic veins: Inferior vena cava: The vessel was normal in size. ?[facility] ?[facility] [address], [place] [address] ? [id number] ? E C H O C A R D I O G R A M ? R E P O R T NAME: ALIZE MANJARREZ ? : 58 ? LOCATION: 2S ? TELEPHONE: [phone] ?MR#: [id number] ? Measurements Left ventricle ?Value ?Reference LV ID, ED, PLAX ? 4.7 ?? cm ? 3.5 - 6.0 LV ID, ES, PLAX ? 3.4 ?? cm ? 2.1 - 4.0 LV PW thickness, ED, PLAX ? 1.3 ?? cm ? LV end-diastolic volume, 1-p A2C ?121 ?? ml ? LV ejection fraction, 1-p A2C ? 71 ?% ? LV end-diastolic volume, 1-p A4C ?126 ?? ml ? LV ejection fraction, 1-p A4C ? 60 ?% ? LV e', lateral ?0.083 m/sec ? LV e', medial ? 0.075 m/sec ? LV e', average ?0.079 m/sec ? Ventricular septum ?Value ?Reference IVS thickness, ED, PLAX ? 1.4 ?? cm ? LVOT ?Value ?Reference LVOT ID, S ?1.9 ?? cm ? LVOT area ? 2.8 ?? cm S 2 ? LVOT peak velocity, S ? 1.54 ??m/sec ? LVOT mean velocity, S ? 1.02 ??m/sec ? LVOT VTI, S ? 34.9 ??cm ? LVOT peak gradient, S ? 9 ? mm Hg ? LVOT mean gradient, S ? 5 ? mm Hg ? Stroke volume (SV), LVOT DP ? 99 ?ml ? Stroke index (SV/bsa), LVOT DP ?44 ?ml/m S 2 ?? Aortic valve ?Value ?Reference Aortic valve mean velocity, S ? 1.7 ?? m/sec ? Aortic valve VTI, S ? 43.8 ??cm ? Aortic mean gradient, S ? 10.8 ??mm Hg ? VTI ratio, LVOT/AV ?0.8 ? Aortic valve area, VTI ?2.3 ?? cm S 2 ? Velocity ratio, mean, LVOT/AV ? 0.59 ? Aortic valve area, mean velocity ?1.7 ?? cm S 2 ? Aortic valve area/bsa, mean velocity ?0.7 ?? cm S 2/m S 2 Aorta ? Value ?Reference Aortic root ID ?3.2 ?? cm ? Ascending aorta ID, A-P ? 3.8 ?? cm ? Ascending aorta ID, A-P, S ?3.8 ?? cm ? Left atrium ? Value ?Reference LA ID, A-P, ES ?4.0 ?? cm ? LA ID/bsa, A-P ?1.8 ?? cm/m S 2 ?? <=2.2 LA volume, ES, 2-p ?63 ?ml ? LA volume/bsa, ES, 2-p ?28 ?ml/m S 2 ?? LA/aortic root ratio ?1.25 ?[facility] ?[facility] [address] [place], [place] [address] ? [id number] ? E C H O C A R D I O G R A M ? R E P O R T NAME: ALIZE MANJARREZ ? : [birth year] ? LOCATION: 2S ? TELEPHONE: [phone] ?MR#: [id number] ? Mitral valve ?Value ?Reference Mitral E/A ratio, peak ?0.8 ? Pulmonary arteries ?Value ?Reference PA pressure, S, DP ?20 ?mm Hg ?<=30 Tricuspid valve ? Value ?Reference Tricuspid regurg peak velocity ?1.8 ?? m/sec ? Tricuspid peak RV-RA gradient ? 12.8 ??mm Hg ? Tricuspid maximal regurg velocity, ?1.79 ??m/sec ? PISA Right atrium ?Value ?Reference RA area, ES, A4C ?(H) ? 20.4 ??cm S 2 ? 8.3 - 19.5 Legend: (L) ??and ??(H) ??stephanie values outside specified reference range. I have personally reviewed the images and have reviewed and edited the reported findings. Electronically signed by Rasta Davis 02/05/2019 09:50 Procedure Note Rasta Davis MD - 04/28/2019 [facility] [address] [place], [place] [address] [id number] E C H O C A R D I O G R A M R E P O R T NAME: ALIZE MANJARREZ : 58LOCATION: 2S TELEPHONE: [phone] MR#: [id number] [id number] *[facility]* *[facility]* [address] [place] [address] Date of study: 02/05/2019 Transthoracic Echocardiography M-mode, complete 2D, complete spectral Doppler, and color Doppler *STUDY CONCLUSIONS* Summary: 1. Left ventricle: The cavity size was normal. Wall thickness was increased increased in a pattern of mild to moderate LVH. Systolic function was normal. The estimated ejection fraction was 60-65%. Wall motion was normal; there were no regional wall motion abnormalities. 2. Ascending aorta: The ascending aorta was mildly dilated. 3. Aortic arch: The aortic arch was normal in size; it had a single discrete atheroma stage III. 4. Left atrium: The atrium was mildly dilated. 5. Right ventricle: The cavity size was normal. Wall thickness was normal. Systolic function was normal. *PATIENT PRESENTATION* Height: 160cm (63in ) S/D Pressure: 119 / 66 Weight: 108.9kg (239.5lb ) BSA: 2.26m S 2 Test start time: 07:00 AM. Test stop time: 07:56 AM. PERFORMING [facility] ORDERING Nathan Michael REFERRING Nathan Michael *PROCEDURE DATA* Procedure information: The patient was identified by two identifiers. This study was interpreted by [facility]. Pertinent images and digital data are archived for permanent storage and are available for subsequent review. No prior study was available for comparison. Study status: Routine. Transthoracic echocardiography. M-mode, complete 2D, complete [facility] [address] [place] [id number] E C H O C A R D I O G R A M R E P O R T NAME: ALIZE MANJARREZ : 58LOCATION: 2S TELEPHONE: [phone] MR#: [id number] spectral Doppler, and color Doppler. A Transthoracic Echocardiogram was performed. Scanning was performed from the parasternal, apical, subcostal, and suprasternal notch acoustic windows. Images were obtained using a [facility] IE33 2 cardiac ultrasound machine. Image quality was fair. The study was technically limited due to body habitus. Study completion: The patient tolerated the procedure well. There were no complications. *INDICATIONS AND HISTORY* Indications: R/o CHF *CARDIAC ANATOMY* Left ventricle: The cavity size was normal. Wall thickness was increased increased in a pattern of mild to moderate LVH. Systolic function was normal. The estimated ejection fraction was 60-65%. Wall motion was normal; there were no regional wall motion abnormalities. Diastolic parameters were normal. Aortic valve: Poorly visualized. Normal thickness leaflets. Mobility was not restricted. Doppler: Transvalvular velocity was within the normal range. There was no stenosis. There was no significant regurgitation. VTI ratio of LVOT to aortic valve: 0.8. Valve area (VTI): 2.3cm S 2. Indexed valve area (VTI): 1cm S 2/m S 2. Mean velocityratio of LVOT to aortic valve: 0.59. Valve area (Vmean): 1.7cm S 2. Indexed valve area (Vmean): 0.7cm S 2/m S 2. Mean gradient (S): 10.8mm Hg. Aorta: Aortic root: The aortic root was normal in size. Ascending aorta: The ascending aorta was mildly dilated. Aortic arch: The aortic arch was normal in size; it had a single discrete atheroma stage III. Mitral valve: Structurally normal valve. Mobility was not restricted. Doppler: Transvalvular velocity was within the normal range. There was no evidence for stenosis. There was no significant regurgitation. Left atrium: The atrium was mildly dilated. Right ventricle: The cavity size was normal. Wall thickness was normal. Systolic function was normal. Pulmonic valve: Doppler: Transvalvular velocity was within the normal range. There was no evidence for stenosis. There was no significant regurgitation. Tricuspid valve: Structurally normal valve. Doppler: Transvalvular velocity was within the normal range. There was no evidence for stenosis. There was trivial regurgitation. Pulmonary artery: Pulmonary systolic pressure was within the normal range. Right atrium: The atrium was at the upper limits of normal in size. Pericardium: There was no pericardial effusion. Systemic veins: Inferior vena cava: The vessel was normal in size. [facility] [address] [place], [place] [address] [id number] E C H O C A R D I O G R A M R E P O R T NAME: ALIZE MANJARREZ: 58LOCATION: 2S TELEPHONE: [phone] MR#: [id number] [facility]#:[id number] Measurements Left ventricle Value Reference LV ID, ED, PLAX 4.7 cm 3.5 - 6.0 LV ID, ES, PLAX 3.4 cm 2.1 - 4.0 LV PW thickness, ED, PLAX 1.3 cm LV end-diastolic volume, 1-p A2C 121 ml LV ejection fraction, 1-p A2C 71 % LV end-diastolic volume, 1-p A4C 126 ml LV ejection fraction, 1-p A4C 60 % LV e', lateral 0.083 m/sec LV e', medial 0.075 m/sec LV e', average 0.079 m/sec Ventricular septum Value Reference IVS thickness, ED, PLAX 1.4 cm LVOT Value Reference LVOT ID, S 1.9 cm LVOT area 2.8 cm S 2 LVOT peak velocity, S 1.54 m/sec LVOT mean velocity, S 1.02 m/sec LVOT VTI, S 34.9 cm LVOT peak gradient, S 9 mm Hg LVOT mean gradient, S 5 mm Hg Stroke volume (SV), LVOT DP 99 ml Stroke index (SV/bsa), LVOT DP 44 ml/m S 2 Aortic valve Value Reference Aortic valve mean velocity, S 1.7 m/sec Aortic valve VTI, S 43.8 cm Aortic mean gradient, S 10.8 mm Hg VTI ratio, LVOT/AV 0.8 Aortic valve area, VTI 2.3 cm S 2 Velocity ratio, mean, LVOT/AV 0.59 Aortic valve area, mean velocity 1.7 cm S 2 Aortic valve area/bsa, mean velocity 0.7 cm S 2/m S 2 Aorta Value Reference Aortic root ID 3.2 cm Ascending aorta ID, A-P 3.8 cm Ascending aorta ID, A-P, S 3.8 cm Left atrium Value Reference LA ID, A-P, ES 4.0 cm LA ID/bsa, A-P 1.8 cm/m S 2 <=2.2 LA volume, ES, 2-p 63 ml LA volume/bsa, ES, 2-p 28 ml/m S 2 LA/aortic root ratio 1.25 [facility] [address] [place], [place] [address] [id number] E C H O C A R D I O G R A M R E P O R T NAME: ALIZE MANJARREZ MONIE: 58LOCATION: 2S TELEPHONE: [phone] MR#: [id number] [facility][id number] Mitral valve Value Reference Mitral E/A ratio, peak 0.8 Pulmonary arteries Value Reference PA pressure, S, DP 20 mm Hg <=30 Tricuspid valve Value Reference Tricuspid regurg peak velocity 1.8 m/sec Tricuspid peak RV-RA gradient 12.8 mm Hg Tricuspid maximal regurg velocity, 1.79 m/sec PISA Right atrium Value Reference RA area, ES, A4C (H) 20.4 cm S 2 8.3 -19.5 Legend: (L) and (H) stephanie values outside specified reference range. I have personally reviewed the images and have reviewed and edited the reported findings. Electronically signed by Rasta Davis 02/05/2019 09:50 Provider Unknown CARDIAC ECHO ORDERAB LES * MAGNESIUM (02/05/2019 6:45 EDT) [facility] Magnesium 2.30 1.7 - 2.8 mg/dL 02/05/2019 7:[address] [facility] 02/05/2019 6:45 EDT 02/05/2019 6:52 EDT Nathan Michael MD CHEMISTRY & BLOOD GA S ORDERABLES [facility] * (ABNORMAL) LIPID PROFILE (INCLUDES CHOLESTEROL, TRIGLYCERIDES, HDL, LDL) (02/05/2019 6:45 EDT) [facility] Triglyceride 181 <150 mg/dL 02/05/2019 7:[address] [facility] Comment: Adult: Normal: ?<150 mg/dl ? Borderline High: 150-199 mg/dl ? High: ?200-499 mg/dl ? Very High: >lk=955 Cholesterol 129 <200 mg/dL 02/05/2019 7:[address] [facility] Comment: Acceptable: ??<200 Borderline: ??200-239 High: ?> or = 240 Chol/HDL Ratio 4.1 0 - 4.5 02/05/2019 7:46 [facility] Comment: DESIRABLE RATIO IS LESS THAN 4.1 PATIENTS ARE CONSIDERED AT RISK: WOMEN RATIO >5 MEN RATIO >6 FASTING? [place] [facility] [place] 9 7:54 [facility] HDL 31(L) 40 - 60 mg/dL 02/05/2019 7:46 [facility] Comment: ?? Reference Range Low: ? < 40 ??mg/dL Normal: ??40-60 mg/dL High: ?>= 60 mg/dL LDL CHOLESTEROL - [facility] [place] 62 60 - 100 mg/dL 02/05/2019 7:46 [facility] Non HDL Cholesterol 98 mg/dl 02/05/2019 7:46 [facility] Comment: Desirable: ?Less than 130 Borderline High: ??130-159 High: ? 160-189 Very High: ?Greater than or equal to 190 02/05/2019 6:45 EDT 02/05/2019 6:52 EDT Nathan Michael MD CHEMISTRY & BLOOD GA S ORDERABLES [facility] * (ABNORMAL) COMPREHENSIVE METABOLIC PANEL (CMP) (02/05/2019 6:45 EDT) Albumin % 3.0(L) 3.4 - 4.9 g/dL 02/05/2019 7:[address] [facility] ALKALINE PHOSPHATASE - [facility] [place] 53 38 - 126 U/L 02/05/2019 7:[address] [facility] BILIRUBIN TOTAL 0.9 0.2 - 1.3 mg/dL 02/05/2019 7:46 [facility] BUN - [facility] [place] 14 10 - 26 mg/dL 02/05/2019 7:46 [facility] CALCIUM - [facility] [place] 8.9 8.5 - 10.5 mg/dL 02/05/2019 7:46 [facility] Chloride 101 96 - 110 mmol/L 02/05/2019 7:46 [facility] CO2 Total 29 22 - 32 mEq/L 02/05/2019 7:46 [facility] CREATININE 0.65 0.52 - 1.04 mg/dL 02/05/2019 7:46 [facility] eGFR >60 02/05/2019 7:46 [facility] Comment: Chronic renal impairment is defined as GFR <60 Multiply result by 1.210 for patients. eGFR calculated using the IDMS-traceable MDRD Study Equation. ??(effective 05/12/2014) Anion Gap 5 0 - 18 02/05/2019 7:46 [facility] GLUCOSE - [facility] [place] 136(H) 70 - 100 mg/dL 02/05/2019 7:46 [facility] Potassium 4.3 3.5 - 5.0 mEq/L 02/05/2019 7:46 [facility] Sodium 135(L) 136 - 145 mEq/L 02/05/2019 7:46 [facility] TOTAL PROTEIN - [facility] [place] 5.3(L) 6.2 - 8.2 gm/dL 02/05/2019 7:46 [facility] SGOT/AST - [facility] [place] 85(H) 14 - 36 U/L 02/05/2019 7:46 [facility] SGPT/ALT - [facility] [place] 118(H) 9 - 52 U/L 9 7:46 [facility] 02/05/2019 6:45 EDT 02/05/2019 6:52 EDT Nathan Michael MD CHEMISTRY & BLOOD GA S ORDERABLES [facility] * (ABNORMAL) TROPONIN I (02/05/2019 6:45 EDT) Pathologist [facility] Troponin I (ng/mL) 0.038(HH) 0.000 - 0.034 ng/mL 02/05/2019 8:[address] [facility] Comment: Result called to EBONY FERNANDEZ/Sunny 02/05/19 0803 Result called by EF Interpretation comments: ??Cutoff for a positive troponin result is set at the 99th percentile of the upper reference limit. ??Elevated troponin must always be interpreted in the context of the clinical presentation. ?Serial troponin testing 3-6 hr from baseline is favored over relying on a single troponin level. ?? The results of this assay can be falsely lowered due to the consumption of Biotin. 02/05/2019 6:45 EDT 02/05/2019 6:52 EDT Nathan Michael MD CHEMISTRY & BLOOD GA S ORDERABLES Performing Organization Address [facility] Co de Phone Number [facility] * HEPATITIS C AB W REFLEX TO HCV RNA BY PCR (02/05/2019 6:45 EDT) Pathologist [facility] HEPATITIS C AB W/REFLEX - [facility] [place] Negative 02/05/2019 8:[address] [facility] Comment:Expected Values: Neg ative. 02/05/2019 6:45 EDT 02/05/2019 6:52 EDT Nathan Michael MD CHEMISTRY & BLOOD GA S ORDERABLES Performing Organization Address [facility] Co de Phone Number [facility] * HEPATITIS B SURFACE ANTIGEN (02/05/2019 6:45 EDT) Pathologist [facility] Hep B Surface Ag Negative 02/05/2019 8:[address] [facility] Comment: Expected Values: ??Negative. The results of this assay can be falsely lowered due to the consumption of Biotin. 02/05/2019 6:45 EDT 02/05/2019 6:52 EDT Nathan Michael MD CHEMISTRY & BLOOD GA S ORDERABLES [facility] * COMPLETE BLOOD COUNT WITH DIFFERENTIAL (AUTO) (02/05/2019 6:45 EDT) ABSOLUTE NEUTROPHIL COUN - [facility] 6.5 2.2 - 8.85 10e3/uL 02/05/2019 7:[address] [facility] BASO # - [facility] 0.01 0.01 - 0.11 10e/uL 02/05/2019 7:21 [facility] BASO % - [facility] 0 0 - 2 % 02/05/2019 7:21 [facility] EOS # - [facility] 0.14 0.03 - 0.61 10e3/ul 02/05/2019 7:21 [facility] EOS % - [facility] 1 0 - 5 % 02/05/2019 7:21 [facility] GRAN % - [facility] 63.7 40 - 80 % 02/05/2019 7:21 [facility] HEMATOCRIT - [facility] 38.1 34.9 - 44.4 % 02/05/2019 7:21 [facility] HEMOGLOBIN - [facility] 12.9 11.6 - 15.2 g/dl 02/05/2019 7:21 [facility] IG# - [facility] 0.08 0 - 0.7 10e3/uL 02/05/2019 7:21 [facility] IG% - [facility] 0.8 0 - 0.9 % 02/05/2019 7:21 [facility] LYMPH # - [facility] 2.8 1.09 - 3.3 10e3/ul 02/05/2019 7:21 [facility] LYMPH% - [facility] 26.9 20 - 40 % 02/05/2019 7:21 [facility] MEAN CORPUSCULAR HGB - [facility] 29.5 26.7 - 33.3 pg 02/05/2019 7:21 [facility] MEAN CORPUSCULAR HGB CONC - [facility] [place] 33.9 32.1 - 35.9 g/dL 02/05/2019 7:[address] [facility] MEAN CELL VOLUME - [facility] [place] 87.2 81 - 98 fl 02/05/2019 7:[address] [facility] MONO # - [facility] [place] 0.7 0.1 - 0.8 10e3/uL 02/05/2019 7:[address] [facility] MONO% - [facility] [place] 7.1 0 - 12 % 02/05/2019 7:[address] [facility] PLATELET COUNT 314 141 - 377 10e3/ul [facility] - [facility] [place] 4.37 3.86 - 5.04 10e3/ul 02/05/2019 7:[address] [facility] RED CELL DISTRI WIDTH - [facility] [place] 14.4 <14.7 % [facility]2019 [facility] WHITE BLOOD COUNT - [facility] [place] 10.3 4.0 - 12.4 10e3/ul 02/05/2019 7:[address] [facility] 02/05/2019 6:45 EDT 02/05/2019 6:52 EDT Nathan Michael MD HEMATOLOGY & PF4 ORD ERABLES [facility] * (ABNORMAL) POCT GLUCOSE (02/05/2019 0:02 EDT) Glucose, POC 121(H) 70 - 100 mg/dL 02/05/2019 0:[address] [facility] 02/05/2019 0:02 EDT 02/05/2019 0:43 EDT Nathan Michael MD POINT OF CARE TEST O RDERABLES [facility] documented in this encounter Visit Diagnoses Not on filedocumented in this encounter Care Teams Piano Professor Relationship Specialty Start Date End Date Brenda Canchola MD [address] [place] [address] [place] [address] PCP - General 08/03/10 documented as of this encounter
--- OUTSIDE RECORDS SUMMARY | 2024-03-04 21:16 | XMS_ITS | Encounter Summary ---
Author Organization [facility] Address [address] [place] [address] Care Team Providers Care Political Science Professor Name Role Phone Brenda Renee MD Primary Care Provider [phone] Encounter Details Date Type Department Care Team (Late st Contact Info) Description 01/24/2014 Results Only [facility] Laboratory Services - [facility] ([facility] [address] [place], [place] [id number] Brenda Renee MD [facility] [place] [address] Social History Tobacco Use Types [...] Diagnosis Comments PAP TEST- RESULT ONLY Routine 01/24/2014 0:00 EDT documented in this encounter Results * PAP TEST- RESULT ONLY (01/24/2014 0:00 EDT) Pathology Report: CYTOPATHOLOGY REPORT Reports generated via electronic interface contain original data; however they are lacking the format of the original report. Caution should be taken when reading/interpreti ng unformatted reports. Name: ? ALIZE MANJARREZ ? Accession #: ? [id number] ? : ? 1960 (Age: 53) ??F ?Collect Date: ? 01/24/2014 ? Location: ? [facility] ? Receive Date: ? 01/28/2014 ? Provider: BRENDA RENEE MD Copy to: ? Final Report SPECIMEN ADEQUACY ? Satisfactory for Evaluation - transformation zone component present GENERAL CATEGORIZATION ? Negative for Intraepithelial Lesion or Malignancy ?? Menstrual/Pregnanc y Status: ??Post Menopausal Previous Gynecologic Pathology: HPV: + H/O LSIL VALENTINO I Specimen/Source: ??Pap Test, Cervix/Endocervix, ThinPrep Imaging System with manual evaluation Document reviewed and electronically signed by: ? AARON Silverman(ASCP) ? Report ??Date: 01/31/2014 10:30 HPV with Pap Test ? Date Ordered: ? 01/31/2014 ? Status: ?? Signed Out ?Date Complete: ? 02/04/2014 ? By: ??System Interface ? Date Reported: ? 02/04/2014 ? Interpretation RESULT: Negative for HPV. No E6 or E7 mRNA is detected from HPV types 16,18,31,33,35, 39,45,51,52,56,58, 59,66, and 68 by chinese herbalist mediated amplification. Comments Document reviewed and electronically signed by: ? System Interface ? Report date: 02/04/2014 By the signature above, the attending physician certifies that he/she has personally conducted a gross and/or microscopic examination of the described specimens and rendered or confirmed the above diagnosis. End of Report [facility] 01/24/2014 01/28/2014 Brenda Renee MD PATHOLOGY ORDERABLES [facility] [address] [place] [address] documented in this encounter Visit Diagnoses Not on filedocumented in this encounter Care Teams Political Science Professor Relationship Specialty Start Date End Date Brenda Renee MD [address] [place] [address] [place] [address] PCP - General 08/03/10 documented as of this encounter
--- OUTSIDE RECORDS SUMMARY | 2024-03-04 21:16 | XMS_ITS | Encounter Summary ---
Author Organization [facility] Address [address] [place] [address] Care Team Providers Care Flue Lining Dipper Name Role Phone Brenda Canchola MD Primary Care Provider [phone] Encounter Details Date Type Department Care Team (Late st Contact Info) Description 02/05/2023 Lab Requisition [facility] Pathology & Laboratory Medicine - [facility] [address] [place], [place] [id number] Outr Resulting Lab, Provider Social History Tobacco [...] Procedure Name Priority Date/Time Associated Diagnosis Comments LYME AB Routine 02/04/2023 21:15 EDT documented in this encounter Results * LYME AB (02/04/2023 21:15 EDT) Lyme Ab Negative Negative 02/06/2023 10:47 EDT [facility] Blood VENOUS BLOOD / Unknown 02/04/2023 21:15 EDT 02/05/2023 15:40 EDT Provider Outr Resulting Lab IMMUNOLOGY A ND SEROLOGY ORDERABLES [facility] [address] [place] [address] documented in this encounter Visit Diagnoses Not on filedocumented in this encounter Care Teams Flue Lining Dipper Relationship Specialty Start Date End Date Brenda Canchola MD [address] [place] [address] [place] [address] PCP - General 08/03/10 documented as of this encounter
--- OUTSIDE RECORDS SUMMARY | 2024-03-04 21:16 | XMS_ITS | Encounter Summary ---
Author Organization [facility] Address [address] [place] [address] Care Team Providers Care Cloth Desizing Range Tender Name Role Phone Brenda Canchola MD Primary Care Provider [phone] Encounter Details Date Type Department Care Team (Late st Contact Info) Description 08/17/2020 Lab Requisition [facility] Pathology & Laboratory Medicine - [facility] [address] [place], [place] [phone] Outr Resulting Lab, Provider Social History Tobacco [...] Comments ZZCOVID-19 TEST [facility] PCR Today 08/17/2020 12:25 EST COVID-19 TESTING Routine 08/17/2020 12:2 5 EST documented in this encounter Results * COVID-19 TEST [facility] PCR (08/17/2020 12:25 EST) Swab ENTIRE NASOPHARYNX / Unknown 08/17/2020 12:25 EST 08/17/2020 15:56 EST Provider Outr Resulting Lab MICROBIOLOGY - GENERAL ORDERABLES [facility] [address] [place] [address] * COVID-19 TESTING (08/17/2020 12:25 EST) COVID-19 rt-PCR Result Negative Negative 08/18/2020 15:45 EST [facility] Comment:Negative results do not preclude 2019-nCoV infection and should not be used as the sole basis for treatment or other patient management decisions. Negative results must be combined with clinical observations, patient history, and epidemiological information. Performing Lab [facility] 08/18/2020 15:45 EST [facility] Swab 08/17/2020 12:2 5 EST 08/17/2020 15:56 EST Provider Outr Resulting Lab MICROBIOLOGY - GENERAL ORDERABLES [facility] [address] [place] [address] documented in this encounter Visit Diagnoses Not on filedocumented in this encounter Care Teams Cloth Desizing Range Tender Relationship Specialty Start Date End Date Brenda Canchola MD [address] [place] [address] [place] [address] PCP - General 08/03/10 documented as of this encounter
--- OUTSIDE RECORDS SUMMARY | 2024-03-04 21:16 | XMS_ITS | Encounter Summary ---
Author Organization [facility] Address [address] [place] [address] Care Team Providers Care Thermal Spray Operator Name Role Phone Unavailable Primary Care Provider Unavailabl e Encounter Details Date Type Department Care Team (Late st Contact Info) Description 04/30/2010 Results Only [facility] Laboratory Services - [facility] ([facility] [address] [place], [place] [address] Brenda Renee MD [address] [place] [address] [address] [place], [place] [phone] Social History Tobacco Use Types Packs/Day Years Used Date Smoking Tobacco: Never Assessed Sex and Gender Information Value Date Recorded Sex Assigned at Not on file Gender Identity Not on file Sexual Orientation Not on file documented as of this encounter Plan of Treatment Not on file documented as of this encounter Procedures Procedure Name Priority Date/Time Associated Diagnosis Comments CYTOPATHOLOGY Routine 04/30/2010 0:00 EDT documented in this encounter Results * CYTOPATHOLOGY (04/30/2010 0:00 EDT) Pathology Report: CYTOPATHOLOGY REPORT ? Reports generated via electronic interface contain original data; ? however they are lacking the format of the original report. ? Caution should be taken when reading/interpreti ng unformatted reports. ? Name: ? ALIZE MANJARREZ ? Accession #: ? [id number] ? : ? 1960 (Age: 49) ??F ?Collect Date: ? 04/30/2010 ? Location: ? [facility] ? Receive Date: ? 05/03/2010 ? Provider: BRENDA RENEE MD ? Copy to: ? Final Report ? SPECIMEN ADEQUACY ? Satisfactory for Evaluation ? - transformation zone component absent ? GENERAL CATEGORIZATION ? Negative for Intraepithelial Lesion or Malignancy ? Last Menstural Period: 2-3 years ago ? Previous Gynecologic Pathology: LSIL: H/O ? HPV: + ? VALENTINO I ? Treatment History: Miscellaneous treatment: ECC 3// ? Specimen/Source: ??Pap Test, Cervix/Endocervix, ThinPrep Imaging System with ? manual evaluation ? Document reviewed and electronically signed by: ? AARON Silverman(ASCP) ? Report ??Date: 05/05/2010 13:45 ? HPV with Pap Test ? Date Ordered: ? 05/05/2010 ? Status: ?? Signed Out ?Date Complete: ? 05/06/2010 ? By: ??System Interface ? Date Reported: ? 05/06/2010 ? Interpretation ? RESULT: Quantity not sufficient. ? Comments ? Document reviewed and electronically signed by: ? System Interface ? Report date: 05/06/2010 ? By the signature above, the attending physician certifies that he/she has ? personally conducted a gross and/or microscopic examination of the described ? specimens and rendered or confirmed the above diagnosis. ? End of Report ? [facility] 04/30/2010 05/03/2010 Brenda Renee MD PATHOLOGY ORDERABLES Performing Organization Address City/State/[facility] Co de Phone Number [facility] [address] [place] [phone] documented in this encounter Visit Diagnoses Not on filedocumented in this encounter
--- OUTSIDE RECORDS SUMMARY | 2024-03-04 21:16 | XMS_ITS | Encounter Summary ---
Author Organization [facility] Address [address] [place] [address] Care Team Providers Care Renovation Plant Supervisor Name Role Phone Brenda Canchola MD Primary Care Provider [phone] Encounter Details Date Type Department Care Team (Late st Contact Info) Description 08/04/2010 Results Only Imaging [facility] Rheumatology - [facility], [address] [facility], [facility] [address] [place] [address] Symone Hayden MD [address] [facility], [facility] [address] [place] [address] Social History Tobacco Use Types Packs/Day Years [...] Procedure Name Priority Date/Time Associated Diagnosis Comments HAND 2 VIEWS 08/04/2010 14:59 EST documented in this encounter Results * HAND 2 VIEWS (08/04/2010 14:59 EST) Anatomical Region Laterality Modality Other 08/04/2010 14:5 9 EST 08/05/2010 14:54 EST Narrative 08/05/2010 14:54 EST Two views of the left hand, 2 views of the right hand, AP ortho pelvis, and frog-leg lateral views of both hips dated Aug 04, 2010. Clinical history: 715.71-[id number]. bilateral hand pain and swelling. Bilateral hip pain, overweight, suspect OA. Comparison: None. Impression: Right hand: PA and AP ball catchers views of the right hand show tiny marginal lucent areas on the distal aspect of the 2nd, 3rd, 4th, and 5th proximal phalanges which may correspond to small cysts or early erosions, similar findings seen in the distal aspect of the 2nd and 3rd middle phalanges, no erosions are seen however at the level of the metacarpals and carpal bones. The styloid process of the ulna appears intact. No focal soft tissue swelling seen. No acute fracture is identified. Mineralization is age-appropriate. Left hand: PA and AP ball catchers views of the left hand show tiny lucent areas on the distal aspect of the 2nd, 3rd, 4th, and 5th proximal phalanges, these however are less conspicuous than on the contralateral side. No are seen however at the level of the metacarpals and carpal bones. The styloid process of the ulna appears intact. No focal soft tissue swelling seen. No acute fractures identified Mineralization is age-appropriate. Right hip: AP and frog-leg lateral views of the right hip show no evidence of acute fracture or malalignment. No significant degenerative changes are seen on the right hip. No erosions are identified. There is no evidence of collapse or loss of the normally sphericity of the right femoral head. A focal small density seen in the soft tissues adjacent to the greater trochanter may be enthesopathic in nature intimate with the insertion of the gluteal tendons or perhaps correspond to hydroxyapatite deposition. Soft tissues are otherwise unremarkable. Left hip: AP and frog-leg lateral views of the left hip show no evidence of acute fracture or malalignment. No significant degenerative changes are seen in the left hip. No erosions are identified. There is no evidence of collapse or loss of the normal sphericity of the left femoral head. Enthesopathic changes are also seen in the region of the greater trochanter on the left likely intimate with insertion of the gluteal tendons. Pelvis: No acute fractures seen. The hip joints are congruent and symmetric. The secreted joints are congruent and symmetric. No abnormalities seen at the level of the symphysis pubis. Some degenerative changes are seen at the lower lumbar spine. Soft tissues are grossly unremarkable. Procedure Note 08/05/2010 Two views of the left hand, 2 views of the right hand, AP ortho pelvis, and frog-leg lateral views of both hips dated Aug 04, 2010. Clinical history: 715.79-[id number]. bilateral hand pain and swelling. Bilateral hip pain, overweight, suspect OA. Comparison: None. Impression: Right hand: PA and AP ball catchers views of the right hand show tiny marginal lucent areas on the distal aspect of the 2nd, 3rd, 4th, and 5th proximal phalanges which may correspond to small cysts or early erosions, similar findings seen in the distal aspect of the 2nd and 3rd middle phalanges, no erosions are seen however at the level of the metacarpals and carpal bones. The styloid process of the ulna appears intact. No focal soft tissue swelling seen. No acute fracture is identified. Mineralization is age-appropriate. Left hand: PA and AP ball catchers views of the left hand show tiny lucent areas on the distal aspect of the 2nd, 3rd, 4th, and 5th proximal phalanges, these however are less conspicuous than on the contralateral side. No are seen however at the level of the metacarpals and carpal bones. The styloid process of the ulna appears intact. No focal soft tissue swelling seen. No acute fractures identified Mineralization is age-appropriate. Right hip: AP and frog-leg lateral views of the right hip show no evidence of acute fracture or malalignment. No significant degenerative changes are seen on the right hip. No erosions are identified. There is no evidence of collapse or loss of the normally sphericity of the right femoral head. A focal small density seen in the soft tissues adjacent to the greater trochanter may be enthesopathic in nature intimate with the insertion of the gluteal tendons or perhaps correspond to hydroxyapatite deposition. Soft tissues are otherwise unremarkable. Left hip: AP and frog-leg lateral views of the left hip show no evidence of acute fracture or malalignment. No significant degenerative changes are seen in the left hip. No erosions are identified. There is no evidence of collapse or loss of the normal sphericity of the left femoral head. Enthesopathic changes are also seen in the region of the greater trochanter on the left likely intimate with insertion of the gluteal tendons. Pelvis: No acute fractures seen. The hip joints are congruent and symmetric. The secreted joints are congruent and symmetric. No abnormalities seen at the level of the symphysis pubis. Some degenerative changes are seen at the lower lumbar spine. Soft tissues are grossly unremarkable. Symone Hayden MD IMG DIAGNOSTIC IMAGI NG ORDERABLES documented in this encounter Visit Diagnoses Not on filedocumented in this encounter Care Teams Renovation Plant Supervisor Relationship Specialty Start Date End Date Brenda Canchola MD [address] [place] [address] [place] [address] PCP - General 08/03/10 documented as of this encounter
--- OUTSIDE RECORDS SUMMARY | 2024-03-04 21:16 | XMS_ITS | Encounter Summary ---
Author Organization [facility] Address [address] [place] [address] Care Team Providers Care School Childcare Attendant Name Role Phone Brenda Canchola MD Primary Care Provider [phone] Encounter Details Date Type Department Care Team (Late st Contact Info) Description 03/10/2021 Lab Requisition [facility] Pathology & Laboratory Medicine - [facility] [address] [place] [address] Torito Coon MD [address] [place] [address] [place] [address] Encounter for other general examination Social History Tobacco Use Types Packs/Day Years [...] Priority Date/Time Associated Diagnosis Comments SURGICAL PATHOLOGY Today 03/10/2021 11 :05 EDT Encounter for other general examination documented in this encounter Results * SURGICAL PATHOLOGY (03/10/2021 11:05 EDT) Note to Patient The following pathology results have been interpreted by your pathologist and may be available to you before your health provider has had the opportunity to review them. Please allow time for your provider to receive these results and explore management options, if applicable. 03/17/2021 12:34 [facility] Final Diagnosis A. STOMACH, ANTRUM, BIOPSY: - No significant pathologic abnormality B. GASTROESOPHAGEAL JUNCTION, BIOPSY: - No significant pathologic abnormality C. COLON, ASCENDING, BIOPSY: - Tubular adenoma D. COLON, DESCENDING, BIOPSY: - No significant pathologic abnormality E. COLON, SIGMOID COLON BIOPSY: - Mildly hyperplastic benign colonic mucosa 03/17/2021 12:34 [facility] Attestation By the signature below, the attending physician certifies that they have 1) personally conducted a gross and/or microscopic examination of the described specimen(s), and/or personally interpreted the results of laboratory testing of the described specimen(s), and 2) personally rendered or confirmed the above diagnosis. 03/17/2021 12:34 [facility] at 1234 Clinical History Constipation, bloating 03/17/2021 12:34 [facility] Gross Description A. Received in formalin labelled with proper patient identification (initials J, B) and antrum bx are 2 parkinson-pink tissues (0.3 x 0.2 x 0.2 cm and 0.4 x 0.2 x 0.1 cm). Submitted entirely in A1. B. Received in formalin labelled with proper patient identification (initials J, B) and GE junction bx are 3 parkinson-pink tissues (0.2 x 0.1 x 0.1 cm up to 0.5 x 0.2 x 0.1 cm). The specimen is submitted entirely in B1. C. Received in formalin labelled with proper patient identification (initials J, B) and ascending colon polyp x2 are 2 parkinson tissues (0.3 x 0.2 x 0.2 cm and 0.6 x 0.3 x 0.1 cm). Submitted entirely in C1. D. Received in formalin labelled with proper patient identification (initials J, B) and descending colon polyp is a single parkinson-pink polypoid tissue (0.4 x 0.3 x 0.2 cm). Submitted intact in D1. E. Received in formalin labelled with proper patient identification (initials J, B) and sigmoid polyp are two parkinson-pink tissues (0.4 x 0.2 x 0.1 cm and 0.8 x 0.2 x 0.1 cm). Submitted entirely in E1. RAEGAN CAOSTA(ASCP) 03/10/2021 15:50 03/17/2021 12:34 EDT [facility] Performing Lab [facility] 12:34 EDT [facility] Scanned Images 03/17/2021 12:34 EDT [facility] Tissue ENTIRE SIGMOID COLON / Unknown 03/10/2021 11:05 EDT 03/10/2021 15:29 EDT Tissue specimen (specimen) CARDIOESOPHAGEAL JUNCTION STRUCTURE / Unknown 03/10/2021 11:05 EDT 03/10/2021 15:29 EDT Tissue specimen (specimen) ASCENDING COLON STRUCTURE / Unknown 03/10/2021 11:05 EDT 03/10/2021 15:29 EDT Tissue specimen (specimen) DESCENDING COLON STRUCTURE / Unknown 03/10/2021 11:05 EDT 03/10/2021 15:29 EDT Tissue specimen (specimen) SIGMOID COLON STRUCTURE / Unknown 03/10/2021 11:05 EDT 03/10/2021 15:29 EDT Torito Coon MD PATHOLOGY ORDERA BLES [facility] [address] [place] [address] documented in this encounter Visit Diagnoses Diagnosis Encounter for other general examination documented in this encounter Care Teams School Childcare Attendant Relationship Specialty Start Date End Date Brenda Canchola MD [address] [place] [address] [place] [address] PCP - General 08/03/10 documented as of this encounter
--- OUTSIDE RECORDS SUMMARY | 2024-03-04 21:16 | XMS_ITS | Encounter Summary ---
Author Organization [facility] Address [address] [place] [address] Care Team Providers Care Finished Carpet Inspector Name Role Phone Brenda Renee MD Primary Care Provider [phone] Encounter Details Date Type Department Care Team (Late st Contact Info) Description 09/09/2011 Results Only [facility] Laboratory Services - [facility] ([facility]) [address] [place], [place] [id number] Brenda Renee MD [facility] [place] [address] Social History Tobacco Use Types [...] Diagnosis Comments PAP TEST- RESULT ONLY Routine 09/09/2011 0:00 EST documented in this encounter Results * PAP TEST- RESULT ONLY (09/09/2011 0:00 EST) Pathology Report: CYTOPATHOLOGY REPORT Reports generated via electronic interface contain original data; however they are lacking the format of the original report. Caution should be taken when reading/interpreti ng unformatted reports. Name: ? ALIZE MANJARREZ ? Accession #: ? [id number] ? : ? 1960 (Age: 50) ??F ?Collect Date: ? 09/09/2011 ? Location: ? [facility] ? Receive Date: ? 09/13/2011 ? Provider: BRENDA RENEE MD Copy to: ? Final Report SPECIMEN ADEQUACY ? Satisfactory for Evaluation - transformation zone component present GENERAL CATEGORIZATION ? Negative for Intraepithelial Lesion or Malignancy ?? Last Menstural Period: 08/31/11 spotting Previous Gynecologic Pathology: VALENTINO I: h/o Specimen/Source: ??Pap Test, Cervix/Endocervix, ThinPrep Imaging System with manual evaluation Document reviewed and electronically signed by: ? Lee Dean, AARON(ASCP) ? Report ??Date: 09/15/2011 12:53 HPV with Pap Test ? Date Ordered: ? 09/15/2011 ? Status: ?? Signed Out ?Date Complete: ? 09/20/2011 ? By: ??System Interface ? Date Reported: ? 09/20/2011 ? Interpretation RESULT: Negative for HPV types 16, 18, 31, 33, 35, 39, 45, 51, 52, 56, 58, 59, and 68. Comments Document reviewed and electronically signed by: ? System Interface ? Report date: 09/20/2011 By the signature above, the attending physician certifies that he/she has personally conducted a gross and/or microscopic examination of the described specimens and rendered or confirmed the above diagnosis. End of Report [facility] 09/09/2011 09/13/2011 Brenda Renee MD PATHOLOGY ORDERABLES [facility] [address] [place] [address] documented in this encounter Visit Diagnoses Not on filedocumented in this encounter Care Teams Finished Carpet Inspector Relationship Specialty Start Date End Date Brenda Renee MD [address] [place] [address] [place] [address] PCP - General 08/03/10 documented as of this encounter
--- OUTSIDE RECORDS SUMMARY | 2024-03-04 21:16 | XMS_ITS | Encounter Summary ---
Author Organization [facility] Address [address] [place] [address] Care Team Providers Care Rubber Cutter Name Role Phone Brenda Renee MD Primary Care Provider [phone] Encounter Details Date Type Department Care Team (Late st Contact Info) Description 09/21/2011 Results Only [facility] Laboratory Services - [facility] ([facility]) [address] [place], [place] [address] Liss Griffiths MD [address] [place] [address] [place] [address] Social History Tobacco Use Types Packs/Day Years [...] Date/Time Associated Diagnosis Comments SURGICAL PATHOLOGY Routine 09/21/2011 0:00 EDT documented in this encounter Results * SURGICAL PATHOLOGY (09/21/2011 0:00 EDT) Pathology Report: SURGICAL PATHOLOGY REPORT Reports generated via electronic interface contain original data; however they are lacking the format of the original report. Caution should be taken when reading/interpreti ng unformatted reports. Name: ? ALIZE MANJARREZ ? Accession #: ? [id number] ? : ? 1960 (Age: 50) ??F ? Collect Date: ? 09/21/2011 ? Location: ? [facility] ? Receive Date: ? 09/22/2011 ? Provider: LISS GRIFFITHS MD Copy to: BRENDA RENEE MD ? Final Pathologic Diagnosis: ? Endometrium, biopsy: 1. ?Atypical complex hyperplasia. ??See comment. 2. ? Inactive endometrium. 3. ? Benign endocervical and ectocervical tissue. Comment: ? Deeper levels have been examined. ??Although the hyperplastic fragments may represent a focus of hyperplasia arising in a polyp, they are so different from the background inactive endometrium that a full curettage should be considered to rule out the possibility of a FIGO grade I adenocarcinoma. ??The case was discussed with Dr. Liss Griffiths on 09/26/2011 at 4:20 p.m. (Dr. Dong)/[facility] Document reviewed and electronically signed by: AME CAMPBELL MD Report ??Date: 09/26/2011 16:21 By the signature above, the attending physician certifies that he/she has personally conducted a gross and/or microscopic examination of the described specimens and rendered or confirmed the above diagnosis. Specimen(s) Received: ? Endometrial bx Clinical History: ? Postmenopausal bleeding Gross Description: ? Received in formalin labelled Avila, Alize and endometrial bx are approximately 4cc of blood-tinged mucus admixed with clotted blood and red-brown tissue fragments. ??The specimen is submitted entirely as (A1) and (A2) following filtration. ??(Juanjose Fonseca)/[facility] End of Report [facility] 09/21/2011 09/22/2011 9:0 6 EDT Liss Griffiths MD PATHOLOGY ORDERABLES [facility] [address] [place] [address] documented in this encounter Visit Diagnoses Not on filedocumented in this encounter Care Teams Rubber Cutter Relationship Specialty Start Date End Date Brenda Renee MD [address] [place] [address] [place] [address] PCP - General 08/03/10 documented as of this encounter
--- OUTSIDE RECORDS SUMMARY | 2024-03-04 21:16 | XMS_ITS | Encounter Summary ---
Author Organization [facility] Address [address] [place] [address] Care Team Providers Care Huller Operator Name Role Phone Brenda Canchola MD Primary Care Provider [phone] Encounter Details Date Type Department Care Team (Late st Contact Info) Description 02/04/2019 Historical Results Only [facility] Radiology Results [address], [place] [id number] Kristin Rocha MD [address] [place] [address] Social History Tobacco Use Types Packs/Day Years [...] Procedure Name Priority Date/Time Associated Diagnosis Comments XR CHEST 2 VIEWS 02/04/2019 22:[address] HEAD WO CONTRAST 02/04/2019 2 2:36 EDT ETHYL ALCOHOL - [facility] Routine 02/04/2019 20:27 EDT COMPLETE BLOOD COUNT WITH DIFFERENTIAL (AUTO) Routine 02/04/2019 20:27 EDT THYROID CASCADE Routine 02/04/2019 20:27 EDT TROPONIN I Routine 02/04/2019 20:27 EDT D-DIMER Routine 02/04/2019 20:27 EDT NT PRO BNP Routine 02/04/2019 20:27 EDT MAGNESIUM Routine 02/04/2019 20:27 EDT COMPREHENSIVE METABOLIC PANEL (CMP) Routine 02/04/2019 20:27 EDT POCT GLUCOSE, INTERFACED Routine 02/04/2019 19:45 EDT documented in this encounter Results * XR CHEST 2 VIEWS (02/04/2019 22:44 EDT) Anatomical Region Laterality Modality Other 02/04/2019 22:4 4 EDT Narrative 02/04/2019 22:44 EDT ? EXAM: RADIOLOGY/CHEST PA ?? LAT ?EX. D/ (2228) ? CLINICAL INFORMATION: ? weakness, recent pneumonia ? EXAM: ? XR Chest, 2 Views ? EXAM DATE/TIME: ? 02/04/2019 20:40 ? CLINICAL HISTORY: ? 58 years old, female; Other: Weakness; Additional info: ? Weakness, recent pneumonia ? TECHNIQUE: ? Imaging protocol: XR of the chest, 2 views. ? COMPARISON: ? No relevant prior studies available. ? FINDINGS: ? Lungs: No airspace consolidation. Mild interstitial crowding ? probably related to low lung volumes. ? Pleural space: No pleural effusion. No pneumothorax. ? Heart/Mediastinum: Mild cardiomegaly with mild vascular ? congestion. ? Vasculature: Tortuous thoracic aorta. ? Bones/joints: Calcification in the right shoulder, probably ? calcific tendinitis. No displaced fracture. ? IMPRESSION: ? Mild cardiomegaly with mild vascular congestion. ? No convincing pneumonia. ? REPORT SIGNED IN OTHER VENDOR SYSTEM 02/04/2019 ?Reported By: Doris Posadas MD ? CC: ? Transcribed Date/Time: 02/04/2019 (2243) ? [facility]: ? Printed Date/Time: 03/27/2019 (1817) ? PAGE 1 ? Signed Report ? Procedure Note Doris Posadas MD - 05/14/2019 EXAM: RADIOLOGY/CHEST PA LAT EX. D/ (7728) CLINICAL INFORMATION: weakness, recent pneumonia EXAM: XR Chest, 2 Views EXAM DATE/TIME: 02/04/2019 20:40 CLINICAL HISTORY: 58 years old, female; Other: Weakness; Additional info: Weakness, recent pneumonia TECHNIQUE: Imaging protocol: XR of the chest, 2 views. COMPARISON: No relevant prior studies available. FINDINGS: Lungs: No airspace consolidation. Mild interstitial crowding probably related to low lung volumes. Pleural space: No pleural effusion. No pneumothorax. Heart/Mediastinum: Mild cardiomegaly with mild vascular congestion. Vasculature: Tortuous thoracic aorta. Bones/joints: Calcification in the right shoulder, probably calcific tendinitis. No displaced fracture. IMPRESSION: Mild cardiomegaly with mild vascular congestion. No convincing pneumonia. REPORT SIGNED IN OTHER VENDOR SYSTEM 02/04/2019 Reported By: Doris Posadas MD CC: Transcribed Date/Time: 02/04/2019 (2243) [facility]: Printed Date/Time: 03/27/2019 (4582) PAGE 1 Signed Report Kristin Rocha MD [facility] DIAGNOSTIC IMAGING ORDERABLES * CT HEAD WO CONTRAST (02/04/2019 22:36 EDT) Anatomical Region Laterality Modality Head Other 02/04/2019 22:3 6 EDT Narrative 02/04/2019 22:36 EDT ? EXAM: CAT SCAN/HEAD WITHOUT CONTRAST ?EX. D/ (2222) ? CLINICAL INFORMATION: ? AMS ? EXAM: ? CT Head Without Contrast ? EXAM DATE/TIME: ? 02/04/2019 21:31 ? CLINICAL HISTORY: ? 58 years old, female; Altered mental status/memory loss; ? Additional info: AMS ? TECHNIQUE: ? Imaging protocol: Computed tomography images of the head without ? contrast. Coronal and sagittal reformatted images were created ? and reviewed. ? Radiation optimization: All CT scans at this facility use at ? least one of these dose optimization techniques: automated ? exposure control; mA and/or kV adjustment per patient size ? (includes targeted exams where dose is matched to clinical ? indication); or iterative reconstruction. ? COMPARISON: ? No relevant prior studies available. ? FINDINGS: ? Brain: Mild cerebral atrophy. ? Ventricles: No ventriculomegaly. ? Bones/joints: No acute fracture. ? Sinuses: No acute sinusitis. ? Mastoid air cells: No mastoid effusion. ? Soft tissues: No suspicious lesions. ? Other findings: CSF density in the sella turcica, likely ? so-called benign empty sella. Benign appearing duodenal ? diverticulum. ? IMPRESSION: ? No acute intracranial findings. ? REPORT SIGNED IN OTHER VENDOR SYSTEM 02/04/2019 ?Reported By: Doris Posadas MD ? CC: ? Transcribed Date/Time: 02/04/2019 (223) ? [facility]: ? Printed Date/Time: 03/27/2019 (1818) ? PAGE 1 ? Signed Report ? Procedure Note Doris Posadas MD - 05/14/2019 EXAM: CAT SCAN/HEAD WITHOUT CONTRAST EX. D/ (2222) CLINICAL INFORMATION: AMS EXAM: CT Head Without Contrast EXAM DATE/TIME: 02/04/2019 21:31 CLINICAL HISTORY: 58 years old, female; Altered mental status/memory loss; Additional info: AMS TECHNIQUE: Imaging protocol: Computed tomography images of the head without contrast. Coronal and sagittal reformatted images were created and reviewed. Radiation optimization: All CT scans at this facility use at least one of these dose optimization techniques: automated exposure control; mA and/or kV adjustment per patient size (includes targeted exams where dose is matched to clinical indication); or iterative reconstruction. COMPARISON: No relevant prior studies available. FINDINGS: Brain: Mild cerebral atrophy. Ventricles: No ventriculomegaly. Bones/joints: No acute fracture. Sinuses: No acute sinusitis. Mastoid air cells: No mastoid effusion. Soft tissues: No suspicious lesions. Other findings: CSF density in the sella turcica, likely so-called benign empty sella. Benign appearing duodenal diverticulum. IMPRESSION: No acute intracranial findings. REPORT SIGNED IN OTHER VENDOR SYSTEM 02/04/2019 Reported By: Doris Posadas MD CC: Transcribed Date/Time: 02/04/2019 (223) [facility]: [email or web address] Printed Date/Time: 03/27/2019 (5994) PAGE 1 Signed Report Kristin Rocha MD IMG CT ORDERAB LES * MAGNESIUM (02/04/2019 20:27 EDT) Magnesium 2.20 1.7 - 2.8 mg/dL 02/04/2019 21:08 EDT [facility] 02/04/2019 20:2 7 EDT 02/04/2019 20:29 EDT [facility] - 02/04/2019 21:25 EDT AOT: 02/04/19 2105: BNP Kristin Rocha MD CHEMISTRY & BL OOD GAS ORDERABLES [facility] * ETHYL ALCOHOL - [facility] (02/04/2019 20:27 EDT) Pathologist [facility] ETHYL ALCOHOL - [facility] <10.0 <10 mg/dL 02/04/2019 21:08 EDT [facility] 02/04/2019 20:2 7 EDT 02/04/2019 20:29 EDT [facility] - 02/04/2019 21:25 EDT AOT: 02/04/19 2105: BNP Kristin Rocha MD CHEMISTRY & BL OOD GAS ORDERABLES [facility] * (ABNORMAL) COMPREHENSIVE METABOLIC PANEL (CMP) (02/04/2019 20:27 EDT) Albumin % 3.3(L) 3.4 - 4.9 g/dL [facility]2019 [facility] ALKALINE PHOSPHATASE - [facility] 58 38 - 126 U/L 02/04/2019 21:08 [facility] BILIRUBIN TOTAL 0.6 0.2 - 1.3 mg/dL 02/04/2019 21:08 [facility] BUN - [facility] 17 10 - 26 mg/dL 02/04/2019 21:08 [facility] CALCIUM - [facility] 8.8 8.5 - 10.5 mg/dL 02/04/2019 21:08 [facility] Chloride 93(L) 96 - 110 mmol/L 02/04/2019 21:08 [facility] CO2 Total 27 22 - 32 mEq/L 02/04/2019 21:08 [facility] CREATININE 0.77 0.52 - 1.04 mg/dL 02/04/2019 21:08 [facility] eGFR >60 02/04/2019 21:08 [facility] Comment: Chronic renal impairment is defined as GFR <60 Multiply result by 1.210 for patients. eGFR calculated using the IDMS-traceable MDRD Study Equation. ??(effective 05/12/2014) Anion Gap 9 0 - 18 02/04/2019 21:08 [facility] GLUCOSE - [facility] 262(H) 70 - 100 mg/dL 02/04/2019 21:08 [facility] Potassium 3.7 3.5 - 5.0 mEq/L 02/04/2019 21:08 [facility] Sodium 129(L) 136 - 145 mEq/L 02/04/2019 21:08 [facility] TOTAL PROTEIN - [facility] 5.8(L) 6.2 - 8.2 gm/dL 02/04/2019 21:08 [facility] SGOT/AST - [facility] 124(H) 14 - 36 U/L 02/04/2019 21:08 [facility] SGPT/ALT - [facility] 133(H) 9 - 52 U/L 9 21:08 [facility] 02/04/2019 20:2 7 EDT 02/04/2019 20:29 [facility] - 02/04/2019 21:25 EDT AOT: 02/04/19 2105: BNP Kristin Rocha MD CHEMISTRY & BL OOD GAS ORDERABLES [facility] * NT PRO BNP (02/04/2019 20:27 EDT) NT-pro BNP 190 <300 pg/mL 02/04/2019 21:25 EDT [facility] Comment: NT-proBNP values less than 300 pg/ml have a 99% negative predictive value for excluding acute congestive heart failure. A diagnostic NT-proBNP cutoff of 900 pg/ml has been suggested in adults over 50 years of age in the absence of renal failure. A cutoff of 1200 pg/ml for patients with eGFR <60 yields a diagnostic sensitivity and specificity of 89% and 72% for acute congestive failure. (OCD Avila Bass, PhD, The International Collaborative of NT-proBNP (ICON) Study The results of this assay can be falsely lowered due to the consumption of Biotin. 02/04/2019 20:2 7 EDT 02/04/2019 20:29 EDT Narrative [facility] - 02/04/2019 21:25 EDT AOT: 02/04/19 2105: BNP Kristin Rocha MD CHEMISTRY & BL OOD GAS ORDERABLES Performing Organization Address City/[facility]/ZIP Co de Phone Number [facility] * THYROID CASCADE (02/04/2019 20:27 EDT) Pathologist [facility] TSH 4.05 0.46 - 4.68 uIU/mL 02/04/2019 21:38 EDT [facility] 02/04/2019 20:2 7 EDT 02/04/2019 20:30 EDT Kristin Rocha MD CHEMISTRY & BL OOD GAS ORDERABLES [facility] * (ABNORMAL) TROPONIN I (02/04/2019 20:27 EDT) Pathologist [facility] Troponin I (ng/mL) 0.037(HH) 0.000 - 0.034 ng/mL 02/04/2019 21:01 EDT [facility] Comment: Result called to CATHY RAY/ER 02/04/192100 Result called by CM Interpretation comments: ??Cutoff for a positive troponin [...] lowered due to the consumption of Biotin. 02/04/2019 20:2 7 EDT 02/04/2019 20:30 EDT Kristin Rocha MD CHEMISTRY & BL OOD GAS ORDERABLES Performing Organization Address [facility]/ZIP Co de Phone Number [facility] * D-DIMER (02/04/2019 20:27 EDT) Pathologist [facility] D-Dimer 193 <230 ng/mLDDU 02/04/2019 21:20 EDT [facility] Comment: CUTOFF VALUE FOR THE EXCLUSION OF DVT and PE: 230 ng/mL D-dimer units. Any use of the age-adjusted cutoff value is a post-analytic modification of this FDA-approved test and is considered off-label use of the test result. [facility] Laboratory does not have literature to support the validity of an age-adjusted cutoff for our specific assay. 02/04/2019 20:2 7 EDT 02/04/2019 21:06 EDT Kristin Rocha MD HEMATOLOGY & P F4 ORDERABLES Performing Organization Address [facility]/ZIP Co de Phone Number [facility] * (ABNORMAL) COMPLETE BLOOD COUNT WITH DIFFERENTIAL (AUTO) (02/04/2019 20:27 EDT) Pathologist [facility] ABSOLUTE NEUTROPHIL COUN - [facility] 9.6(H) 2.2 - 8.85 10e3/uL 02/04/2019 20:35 EDT [facility] BASO # - [facility] 0.01 0.01 - 0.11 10e/uL 02/04/2019 20:35 EDT [facility] BASO % - [facility] 0 0 - 2 % 02/04/2019 20:35 [facility] EOS # - [facility] 0.09 0.03 - 0.61 10e3/ul 02/04/2019 20:35 [facility] EOS % - [facility] 1 0 - 5 % 02/04/2019 20:35 [facility] GRAN % - [facility] 68.5 40 - 80 % 02/04/2019 20:35 [facility] HEMATOCRIT - [facility] 37.5 34.9 - 44.4 % 02/04/2019 20:35 [facility] HEMOGLOBIN - [facility] 12.8 11.6 - 15.2 g/dl 02/04/2019 20:35 [facility] IG# - [facility] 0.16 0 - 0.7 10e3/uL 02/04/2019 20:35 [facility] IG% - [facility] 1.1(H) 0 - 0.9 % 02/04/2019 20:35 [facility] LYMPH # - [facility] 3.1 1.09 - 3.3 10e3/ul 02/04/2019 20:35 [facility] LYMPH% - [facility] 22.5 20 - 40 % 02/04/2019 20:35 [facility] MEAN CORPUSCULAR HGB - [facility] 29.6 26.7 - 33.3 pg 02/04/2019 20:35 [facility] MEAN CORPUSCULAR HGB CONC - [facility] 34.1 32.1 - 35.9 g/dL 02/04/2019 20:35 [facility] MEAN CELL VOLUME - [facility] 86.6 81 - 98 fl 02/04/2019 20:35 [facility] MONO # - [facility] 1.0(H) 0.1 - 0.8 10e3/uL 02/04/2019 20:35 [facility] MONO% - [facility] 7.2 0 - 12 % 02/04/2019 20:35 [facility] PLATELET COUNT 345 141 - 377 10e3/ul 02/04/2019 20:35 [facility] RED BLOOD COUNT - [facility] 4.33 3.86 - 5.04 10e3/ul 02/04/2019 20:35 EDT [facility] RED CELL DISTRI WIDTH - [facility] 14.1 <14.7 % 02/04/2019 20:35 EDT [facility] WHITE BLOOD COUNT - [facility] 14.0(H) 4.0 - 12.4 10e3/ul 02/04/2019 20:35 EDT [facility] 02/04/2019 20:2 7 EDT 02/04/2019 20:30 EDT Kristin Rocha MD HEMATOLOGY & P F4 ORDERABLES [facility] * (ABNORMAL) POCT GLUCOSE (02/04/2019 19:45 EDT) [facility] Glucose, POC 262(H) 70 - 100 mg/dL 02/04/2019 19:51 EDT [facility] 02/04/2019 19:4 5 EDT 02/04/2019 19:51 EDT Mack Varghese MD POINT OF CARE TEST O RDERABLES [facility] documented in this encounter Visit Diagnoses Not on filedocumented in this encounter Care Teams Huller Operator Relationship Specialty Start Date End Date Brenda Canchola MD [address] [place] [address] [place] [address] PCP - General 08/03/10 documented as of this encounter
--- OUTSIDE RECORDS SUMMARY | 2024-03-04 21:16 | XMS_ITS | Encounter Summary ---
Author Organization [facility] Address [address] [place] [address] Care Team Providers Care Pricing Associate Name Role Phone Brenda Canchola MD Primary Care Provider [phone] Reason for Visit * Reason Comments Joint Pain Encounter Details Date Type Department Care Team (Late st Contact Info) Description 08/04/2010 13:00 EST Office Visit [facility] Rheumatology & Immunology - [address] [id number] Del Ni MD [address] [place] [address], [address] [place] [phone] Miguel Leonard MD [address] [place] [id number] Osteoarthritis (Primary Dx) Social History Tobacco Use Types Packs/Day Years [...] on file documented as of this encounter Last Filed Vital Signs Vital Sign Reading Time Taken Comments Blood Pressure 146/82 08/04/2010 1252 EST Pulse 84 08/04/2010 1252 EST Temperature - - Respiratory Rate - - Oxygen Saturation - - Inhaled Oxygen Concentration - - Weight 122.9 kg (271 lb) 08/04/2010 1252 EST Height 161.3 cm (5' 3.5) 08/04/2010 1252 EST Body Mass Index 47.25 08/04/2010 1252 EST documented in this encounter Patient Instructions * Patient Instructions* Miguel Leonard MD - 08/04/2010 14:17 EST 1. You have osteoarthritis (wear and tear arthritis). Weight loss, arch support for your feet, and pain medication such as tylenol and Meloxicam can be helpful. Try tylenol first, up to 2000 mg dailyand if this does not work, can try Meloxicam which we will give you a prescription for. 2. Try increasing physical activity -30 minutes 5 times per week at least. Aquatic therapy can be very helpful. 3. You can try [place] 3 fatty acids- 2,000 to 3000 mg per day. Talk with your highway maintenance technician to make sure this is okay with your plavix and aspirin. 4. We want to get some blood tests and xrays today- we will let you know about the results of these. 5. Follow up as needed. documented in this encounter Ordered Prescriptions Prescription Sig Dispensed Refills Start Date End Da te meloxicam (MOBIC) 7.5 mg tablet Take 1 Tab by mouth daily. 30 Tab 11 08/04/2010 documented in this encounter Progress Notes * Miguel Leonard MD - 08/05/2010 1635 ESTQuick Note: Talked with pt. Will try stretching and meloxicam for 1 month and if no better will call to schedule injection. * Miguel Leonard MD - 08/04/2010 1247 EST RHEUMATOLOGY CONSULT NOTE Date of Service: 08/04/2010 REASON FOR CONSULT: Joint pain, hand stiffness CONSULT REQUESTED BY: Brenda Canchola PRIMARY CARE PHYSICIAN: Brenda Canchola HISTORY OF PRESENT ILLNESS: Alize Gramajo is a 49 y.o. female who presents for evaluation of hand pain and stiffness. This started a few years ago and it's hard to remember whether or not it started suddenly but she has noticed it more and more over time. 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 After a while, they also start hurting. Hands hurt with acti vity and at rest. They frequently feel swollen. Hands look swollen to her as well. This is not a single joint but an all over swelling. Hand generally feel the same all day, not worse in the morning or evening. Feels stiff all over in the morning and this lasts well into the day. When getting up in am her hips hurt. This started years ago as well. The area is always sore whenshe pushes on outer hips. At one point was diagnosed with bursitis. Had ultrasound for this as wellas a cortisone shot which helped. Has also had trouble with sciatica but this is under control now.Had MRI of lumbar spine which showed 3 bulging discs. Is wondering if she may have fibromyalgia because she is also feeling foggy and confused. She is seeing a neurologist for this and is getting ready to undergo some tests. This seems to have startedafter a mild heart attack several years ago and seems to be worse when she is tired. This varies day to day. Has a lot of tender areas on body when she touches them. Has had weight gain over past 2 years secondary to sugar cravings. Feels lame all over like she worked very hard the previous day even though she didn't. With the combination of all of these symptoms she feels like she may have fibromyalgia. PMH PSH Past Medical History Diagnosis Date ??? Heart attack 2008 cath with 4 stents ??? Diabetes mellitus borderline ??? Asthma ??? Hypertension ??? Depression ??? Anxiety Past Surgical History Procedure Date ??? section 1981 ??? Knee arthroscopy left knee CURRENT MEDICATIONS Current outpatient prescriptions Medication Sig Dispense Refill ??? aspirin 325 mg tablet Take 325 mg by mouth every 6 hours as needed. ??? metoprolol (LOPRESSOR) 25 mg tablet Take 25 mg by mouth 2 times daily. ??? losartan (COZAAR) 100 mg tablet Take 100 mg by mouth daily. ??? omeprazole (PRILOSEC) 20 mg capsule Take 20 mg by mouth daily. ??? clopidogrel (PLAVIX) 75 mg tablet Take 75 mg by mouth daily. ??? atorvastatin (LIPITOR) 10 mg tablet Take 10 mg by mouth daily. ??? trazodone (DESYREL) 100 mg tablet Take 100 mg by mouth 2 times daily. ??? lorazepam (ATIVAN) 1 mg tablet Take 1 mg by mouth 3 times daily. ??? fluticasone-salmeterol (ADVAIR HFA) 115-21 mcg/Actuation inhaler Inhale 1 Puff as directed 2 times daily. ??? albuterol (PROVENTIL HFA, VENTOLIN HFA) 90 mcg/Actuation inhaler Inhale 2 Puffs as directed every 4 hours. ALLERGIES Allergies Allergen Reactions ??? Azithromycin ??? Codeine ??? Lisinopril cough ??? Ibuprofen Stomach upset SOCIAL HISTORY FAMILY HISTORY History Substance Use Topics ??? Smoking status: Current Everyday Smoker -- 1.0 packs/day for 30 years ??? Smokeless tobacco: Not on file ??? Alcohol Use: Yes 1-2 times per year Family History Problem Relation Age of Onset ??? Arthritis Mother osteoarthritis ??? Arthritis Father REVIEW OF SYSTEMS: Symptom Yes No Symptom Yes No Fever X Morning stiffness x Fatigue x Numbness/ tingling X Night sweats X Headaches X Weight change X, gain Muscle weakness X Eye discomfort X Dysuria X Mouth/nose sores X Hematuria X Chest pain X Urinary frequency x Palpitations X Trouble sleeping X Dyspnea X Change in mood X Cough X Anxiety X Nausea/ vomiting x Depression X Abdominal pain X Skin rash/ changes X Blood in stools X Sun induced rash X, bilateral forearm itching rash Diarrhea X Raynaud's X Constipation X Itching X Joint pain x Hair loss X Muscle pain x Other X Also positive for vaginal dryness, easy bruising, sexual difficulties, memory problems. OBJECTIVE: BP 146/82 Pulse 84 Ht 161.3 cm (63.5) Wt 122.925 kg (271 lb) General: No acute distress Psychiatric: Alert, fully oriented, pleasant, conversant Eyes: Conjunctivae/corneas clear. PERRL, EOMs intact. Sclerae anicteric ENT: Mucus membranes moist; oropharynx clear. Dentition good. Neck: Supple, symmetrical, trachea midline. Lymph Nodes: No cervical or supraclavicular lymphadenopathy. Lungs: Clear to auscultation bilaterally without wheezes, rales, or rhonchi. Heart: Regular rate and rhythm; S1, S2 present; II/ NICHELLE at LUSB Skin: Back: No rashes or lesions. Symmetric. Left lower lumbar tenderness, not at SI joint. Musculoskeletal: Tenderness of right 2nd MCP, left 3rd MCP, all PIPS and DIPs without swelling. Early heberdens' nodes 2nd DIPs bilaterally. Range of motion of fingers good. Wrists non-tender, non-swollen, good ROM. Left elbow mildly tender, normal range of motion. Right shoulder tender in AC joint. Hips move well without pain. Knees non-swollen, pain at medial joint line bilaterally. Left ankle tender, non-swollen, good ROM. Bilateral bony enlargement 1st MTPs. Right 2nd MTP and left 4th MTPs tender, non-swollen. Bilateral pes planus and valgus deformity of knees. Fibromyalgia tender points: bilateral trapezius, sternoclavicular, greater trochanter, lateral epicondyle, medial knee. (04/26) Data Review 05/14/10: Calcium 8.9 Glucose 131 BUN 8, Cr 0.8 AST 32, ALT 44, Alk phos 116 WBC 10.11, Hgb 14.2, Plt 307 IMPRESSION: 49 y.o. female with several years of hand pain and tightness, greater trochanter pain, and recent trouble with memory, concern about fibromyalgia. Pt has tenderness without inflammation on exam and no evidence of inflammatory arthritis. She has findings consistent with osteoarthritis and bursitis and given her weight this is most likely the cause of her symptoms. She also has findings consistent with fibromyalgia but I would make sure that her depression is treated first before giving her this diagnosis. We also need to rule out other etiologies of pts symptoms including hypothyrodism and vitamin D deficiency. PLAN: 1. Check TSH, 25-OH vit D, ESR, CRP for other causes of fatigue and pain 2. Obtain repeat hand xrays and obtain hip xrays 3. Pt encouraged to increase physical activity to at least 30 minutes 5 x per week for both weight loss to help with OA pain and for fibromyalgia pain. Offered referral to aquatic therapy but pt would like to try to increase activity on her own first. 4. Tylenol up to 2000 mg daily for pain and Meloxicam 7.5 mg daily if tylenol not helpful. Pt givenrx for Meloxicam 7.5 mg #30 with 11 refills 5. Can also try [place] 3 fatty acids, 1130-9643 mg daily but discuss with highway maintenance technician first to makesure this is okay with Plavix and Aspirin 6. Obtain arch support for shoes 7. Follow up prn Pt discussed and examined with Dr. Ni. No barriers to learning. Patient verbalized understanding and agrees with plan. MIGUEL LEONARD MD 08/04/2010 Attestation statement: I saw and examined the patient with the resident/fellow. I agree with the findings and plan of care documented in the resident's/fellow's note. DEL NI MD documented in this encounter Plan of Treatment Not on file documented as of this encounter Procedures Procedure Name Priority Date/Time Associated Diagnosis Comments PELVIS 1 OR 2 VIEWS 08/04/2010 1 5:00 EST HIP UNILATERAL 1 VIEW 08/04/2010 15:00 EST HIP UNILATERAL 1 VIEW 08/04/2010 15:00 EST HAND 2 VIEWS Routine 08/04/2010 15:00 EST Osteoarthritis documented in this encounter Results * (ABNORMAL) C-REACTIVE PROTEIN (08/04/2010 15:46 EST) C-Reactive Protein 1.2(H) <1.0 mg/dl [facility] Blood specimen (specimen) 08/04/2010 15:46 EST 08/04/2010 15:49 EST Del Ni MD CHEMISTRY & BLOOD GA S ORDERABLES [facility] [address] [place] [address] * SED. RATE:WESTERGREN (08/04/2010 15:46 EST) Sed. Rate Westergren 14 0 - 30 mm/hr [facility] Blood specimen (specimen) 08/04/2010 15:46 EST 08/04/2010 15:49 EST Del Ni MD HEMATOLOGY & PF4 ORD ERABLES [facility] [address] [place] [address] * VITAMIN D (25,OH) (08/04/2010 15:46 EST) 25OH Vitamin D Tot 46.6 ng/ml [facility] Comment: Reference Range: <10 ng/ml: Deficient 10-30 ng/ml: Insufficient 30-100 ng/ml: Sufficient >100 ng/ml: Toxic Blood specimen (specimen) 08/04/2010 15:46 EST 08/04/2010 15:49 EST Del Ni MD CHEMISTRY & BLOOD GA S ORDERABLES Performing Organization Address [facility] de Phone Number [facility] [address] [place] [address] * TSH (08/04/2010 15:46 EST) TSH 1.67 0.35 - 5.00 uIU/ml [facility] Blood specimen (specimen) 08/04/2010 15:46 EST 08/04/2010 15:49 EST Del Ni MD CHEMISTRY & BLOOD GA S ORDERABLES Performing Organization Address [facility] [place] [address] * HIP UNILATERAL 1 VIEW (08/04/2010 15:00 EST) Anatomical Region Laterality Modality Other 08/04/2010 15:0 0 EST 08/05/2010 14:54 EST Narrative 08/05/2010 14:54 EST Two views of the left hand, 2 views of the right hand, AP ortho pelvis, and frog-leg lateral views of both hips dated Aug 04, 2010. Clinical history: 715.62-[id number]-D9. bilateral hand pain and swelling. Bilateral hip [...] hips dated Aug 04, 2010. Clinical history: 715.68-QEEVDISFYRIRBS-G5. bilateral hand pain and swelling. Bilateral hip [...] lumbar spine. Soft tissues are grossly unremarkable. Del Ni MD G DIAGNOSTIC IMAGI NG ORDERABLES * HIP UNILATERAL 1 VIEW (08/04/2010 15:00 EST) Anatomical Region Laterality Modality Other 08/04/2010 15:0 0 EST 08/05/2010 14:54 EST Narrative 08/05/2010 14:54 EST Two views of the left hand, 2 views of the right hand, AP ortho pelvis, and frog-leg lateral views of both hips dated Aug 04, 2010. Clinical history: 715.76-NYFDHMEZIWRWTG-X0. bilateral hand pain and swelling. Bilateral hip [...] hips dated Aug 04, 2010. Clinical history: 715.62-WLPBFMEQLUPOIK-X9. bilateral hand pain and swelling. Bilateral hip [...] lumbar spine. Soft tissues are grossly unremarkable. eDl Ni MD IMG DIAGNOSTIC IMAGI NG ORDERABLES * PELVIS 1 OR 2 VIEWS (08/04/2010 15:00 EST) Anatomical Region Laterality Modality Other 08/04/2010 15:0 0 EST 08/05/2010 14:54 EST Narrative 08/05/2010 14:54 EST Two views of the left hand, 2 views of the right hand, AP ortho pelvis, and frog-leg lateral views of both hips dated Aug 04, 2010. Clinical history: 715.21-BBICHDNVWTRXBE-M3. bilateral hand pain and swelling. Bilateral hip [...] hips dated Aug 04, 2010. Clinical history: 715.52-COZGFHKDMKPGNX-V4. bilateral hand pain and swelling. Bilateral hip [...] lumbar spine. Soft tissues are grossly unremarkable. Del Ni MD IMG DIAGNOSTIC IMAGI NG ORDERABLES * HAND 2 VIEWS (08/04/2010 15:00 EST) Anatomical Region Laterality Modality Other 08/04/2010 15:0 0 EST 08/05/2010 14:54 EST Narrative 08/05/2010 14:54 EST Two views of the left hand, 2 views of the right hand, AP ortho pelvis, and frog-leg lateral views of both hips dated Aug 04, 2010. Clinical history: 715.93-DTOWQOOIHVFWGJ-D7. bilateral hand pain and swelling. Bilateral hip [...] hips dated Aug 04, 2010. Clinical history: 715.42-LIVEJHWDMSJPBV-E8. bilateral hand pain and swelling. Bilateral hip [...] lumbar spine. Soft tissues are grossly unremarkable. Del Ni MD IMG DIAGNOSTIC IMAGI NG ORDERABLES documented in this encounter Visit Diagnoses Diagnosis Osteoarthritis- Primary Osteoarthrosis, unspecified whether generalized or localized, unspecified site documented in this encounter Historical Medications * This list may reflect changes made after this encounter. Medication Sig Dispensed Refills Start Date End Date albuterol (PROVENTIL HFA, VENTOLIN HFA) 90 mcg/Actuation inhaler Inhale 2 Puffs as directed every 4 hours. fluticasone-salmeterol (ADVAIR HFA) 115-21 mcg/Actuation inhaler Inhale 1 Puff as directed 2 times daily. lorazepam (ATIVAN) 1 mg tablet Take 1 mg by mouth 3 times daily. trazodone (DESYREL) 100 mg tablet Take 100 mg by mouth 2 times daily. atorvastatin (LIPITOR) 10 mg tablet Take 10 mg by mouth daily. clopidogrel (PLAVIX) 75 mg tablet Take 75 mg by mouth daily. omeprazole (PRILOSEC) 20 mg capsule Take 20 mg by mouth daily. losartan (COZAAR) 100 mg tablet Take 100 mg by mouth daily. metoprolol (LOPRESSOR) 25 mg tablet Take 25 mg by mouth 2 times daily. aspirin 325 mg tablet Take 325 mg by mouth every 6 hours as needed. added in this encounter Care Teams Pricing Associate Relationship Specialty Start Date End Date Brenda Canchola MD [address] [place] [address] [place] [address] PCP - General 08/03/10 documented as of this encounter
--- OUTSIDE RECORDS SUMMARY | 2024-03-04 21:16 | XMS_ITS | Encounter Summary ---
Author Organization [facility] Address [address] [place] [address] Care Team Providers Care Manifest/Order Organizer Print Orders Name Role Phone Brenda Canchola MD Primary Care Provider [phone] Encounter Details Date Type Department Care Team (Late st Contact Info) Description 01/02/2018 Results Only [facility] [phone] Nadir Hernandez, BLUEPRINT PROCESSOR [address] [place] [address] Social History Tobacco Use Types Packs/Day Years [...] Diagnosis Comments PAP TEST- RESULT ONLY Routine 01/02/2018 0:00 EDT documented in this encounter Results * PAP TEST- RESULT ONLY (01/02/2018 0:00 EDT) Pathology Report: CYTOPATHOLOGY REPORT Reports generated via electronic interface contain original data; however they are lacking the format of the original report. Caution should be taken when reading/interpreti ng unformatted reports. Name: ? ALIZE MANJARREZ ? Accession #: ? [id number] ? : ? 1960 (Age: 57) ??F ?Collect Date: ? 01/02/2018 ? Location: ? [facility] ? Receive Date: ? 01/04/2018 ? Provider: NADIR HERNANDEZ PRODUCTION LINE OPERATOR-BC Copy to: ? Final Report SPECIMEN ADEQUACY ? Satisfactory for Evaluation - transformation zone component present GENERAL CATEGORIZATION ? Negative for Intraepithelial Lesion or Malignancy INTERPRETATION ? Reactive cellular changes associated with inflammation present (includes repair). Menstrual/Pregnanc y Status: ??Post Menopausal Specimen/Source: ??Pap Test, Cervix/Endocervix, ThinPrep Imaging System with manual evaluation Document reviewed and electronically signed by: ? MAGGIE SANTOS MD ? Report ??Date: 01/19/2018 15:52 HPV with Pap Test ? Date Ordered: ? 01/18/2018 ? Status: ?? Signed Out ?Date Complete: ? 01/23/2018 ? By: ??System Interface ? Date Reported: ? 01/23/2018 ? Interpretation RESULT: Negative for HPV. No E6 or E7 mRNA is detected from HPV types 16,18,31,33,35, 39,45,51,52,56,58, 59,66, and 68 by powertrain calibration engineer mediated amplification. Comments Document reviewed and electronically signed by: ? System Interface ? Report date: 01/23/2018 By the signature above, the attending physician certifies that he/she has personally conducted a gross and/or microscopic examination of the described specimens and rendered or confirmed the above diagnosis. End of Report [facility] 01/02/2018 01/04/2018 Nadir Hernandez NP PATHOLOGY ORDERABLES [facility] [address] [place] [address] documented in this encounter Visit Diagnoses Not on filedocumented in this encounter Care Teams Manifest/Order Organizer Print Orders Relationship Specialty Start Date End Date Brenda Canchola MD [address] [place] [address] [place] [address] PCP - General 08/03/10 documented as of this encounter
--- OUTSIDE RECORDS SUMMARY | 2024-03-04 21:17 | XMS_ITS | Encounter Summary ---
Author Organization [facility] [place] [address] [place] [address] Care Team Providers Care Sodium Methylate Operator Name Role Phone Rodney Padilla MD Primary Care Provider [phone] Reason for Visit * Reason Comments Medication Refill Encounter Details Date Type Department Care Team (Late st Contact Info) Description 02/10/2024 Refill Family Medicine at [facility] [address] [place] [address] Rodney Padilla MD [address] [facility] [place] [address] Mixed hyperlipidemia Social History Tobacco Use Types Packs/Day Years Used Date Smoking Tobacco: Every Day Cigarettes 1 40 Smokeless Tobacco: Never Comments:Not today. Very anx ious Alcohol Use Standard Drinks/Week Comments No 0 (1 standard drink = 0.6 oz pur e alcohol) rare Overall Financial Resource Strain (CARDIA) Answe r Date Recorded How hard is it for you to pa y for the very basics like food, housing, medical care, and heating? Somewhat hard 06/14/2021 Exercise Vital Sign Answer Date Recorde d On average, how many days pe r week do you engage in moderate to strenuous exercise (like a brisk walk)? 0 days Minutes of Exercise per Session Not on file 06/14/2021 Hunger Vital Sign Answer Date Recorded Within the past 12 months, y ou worried that your food would run out before you got the money to buy more. Never true 06/14/20 21 Within the past 12 months, t he food you bought just didn't last and you didn't have money to get more. Never true 06/14/2021 PRAPARE - Transportation Answer Date Re corded In the past 12 months, has l ack of transportation kept you from medical appointments or from getting medications? No 12/2020 In the past 12 months, has l ack of transportation kept you from meetings, work, or from getting things needed for daily living? No 06/14/2021 Housing Stability Vital Sign Answer Oziel e Recorded In the last 12 months, was t here a time when you were not able to pay the mortgage or rent on time? No 06/14/2021 In the last 12 months, how many places have you lived? 1 06/14/2021 In the last 12 months, was t here a time when you did not have a steady place to sleep or slept in a long term (including now)? No 06/14/2021 Sex and Gender Information Value Date Recorded Sex Assigned at Not on file Gender Identity Not on file Sexual Orientation Not on file documented as of this encounter Plan of Treatment Upcoming Encounters Date Type Department Care Team (Late st Contact Info) Description 03/20/2024 9:00 AM EDT TH Visit (TeleHealth) Sleep Center at [facility] [address] [place] [phone] Denisse Hardwick, LASER BEAM COLOR SCANNER OPERATOR [facility] 03/20/2024 2:00 PM EDT Clinical Support Family Medicine at [facility] [address] [place] [phone] Julia Low [facility] 05/01/2024 11:20 AM EDT Appointment Mammography/[place] [address] Rodney Padilla MD [address] [facility] [place], [place] [id number] 05/01/2024 1:45 PM EDT Office Visit [place] [address] Juanpablo Hernandez MD [facility] [place] [address] 01/30/2025 1:30 PM EDT Appointment Hematology and Oncology at [place] [address] 01/30/2025 3:[address] Scan at [place] [address] Arturo Cordero MD [facility] [place] [address] 01/30/2025 4:15 PM EDT Office Visit Hematology [place] [address] Arturo Cordero MD [facility] DR HEMATOLOGY [place] [address] documented as of this encounter Visit Diagnoses Diagnosis Mixed hyperlipidemia documented in this encounter Care Teams Sodium Methylate Operator Relationship Specialty Start Date End Date Rodney Padilla MD [address] [place] [address] PCP - General 07/18/22 documented as of this encounter
--- OUTSIDE RECORDS SUMMARY | 2024-03-04 21:17 | XMS_ITS | Encounter Summary ---
Author Organization [facility] [place] [address] Care Team Providers Care Cloth Shrinking Machine Operator Helper Name Role Phone Rodney Padilla MD Primary Care Provider [phone] Reason for Visit * Reason Comments Medication Refill Encounter Details Date Type Department Care Team (Late st Contact Info) Description 11/01/2023 Refill Family Medicine at [facility] [address] [place] [address] Rodney Padilla MD [address] [facility] [place] [address] Type 2 diabetes mellitus without long-term current use of insulin Social History Tobacco Use Types Packs/Day Years Used Date Smoking Tobacco: Every Day Cigarettes 1 40 Smokeless Tobacco: Never Comments:Not today. Very anx ious Alcohol Use Standard Drinks/Week Comments No 0 (1 standard drink = 0.6 oz pur e alcohol) Overall Financial Resource Strain (CARDIA) Answe r [...] place to sleep or slept in a snf (including now)? No 06/14/2021 Sex and Gender Information Value Date Recorded Sex Assigned at Not on file Gender Identity Not on file Sexual Orientation Not on file documented as of this encounter Miscellaneous Notes * Telephone Encounter - Lashon Kaur CMA - 11/02/2023 2:29 PM EDT Prescription Renewal Request Name: Alize Gramajo : 1960 Prescription(s) Requested: Requested Prescriptions Pending Prescriptions Disp Refills BD Alcohol Swabs Pads, Medicated [Pharmacy Med Name: BD SINGLE USE SWAB] 100 each 3 Sig: USE TOPICALLY ONCE DAILY insulin needles, disposable, 32 gauge x 5/32 Needle 100 each 11 Sig: Inject 1 each subcutaneously daily. Indications: diabetes Refused Prescriptions Disp Refills Unifine Pentips Plus 32 gauge x 5/32 Needle [Pharmacy Med Name: UNIFINE PENTIPS PLUS 32GX5/32] 100 each 11 Sig: USE TO INJECT UNDER THE SKIN DIRECTED Refused By: LASHON KAUR Reason for Refusal: Change not appropriate Reordered with pts current dosage directions. Date of Encounter last in This Dept (If need an appointment send to secretaries to schedule): 09/19/2023 with Rodney Padilla MD Next Encounter in This Dept: 12/20/2023 with Rodney Padilla MD Date of Last Refill (for each medication): insulin needles, disposable, 32 gauge x Needle 10/05/2022, 100 each:11 Alcohol swab 11/07/2022, 100 each :3 Authorized By: Rodney Padilla MD Status of request: Pended Allergies Allergen Reactions Codeine Phosphate Nausea And Vomiting Erythromycin Base Nausea Only Azithromycin Ibuprofen Stomach upset Lisinopril cough Nsaids (Non-Steroidal Anti-Inflammatory Drug) Nausea And Vomiting Lashon Kaur CMA 11/02/23 2:29 PM documented in this encounter Plan of Treatment Upcoming Encounters Date Type Department Care Team (Late st Contact Info) Description 03/20/2024 9:00 AM EDT TH Visit (TeleHealth) Sleep Center at [facility] [address] [place] [address] Denisse Hardwick, [facility] 03/20/2024 2:00 PM EDT Clinical Support Family Medicine at [facility] [address] [place] [phone] Julia Low, [facility] 05/01/2024 11:20 AM EDT Appointment Mammography/[place] [address] Rodney Padilla MD [address] [place] [address] 05/01/2024 1:45 PM EDT Office [place] [address] Juanpablo Hernandez MD [facility] [address] 01/30/2025 1:30 PM EDT Appointment Hematology [place] [address] 01/30/2025 3:[address] [place] [address] Arturo Cordero MD [facility] DR HEMATOLOGY [place] [address] 01/30/2025 4:15 PM EDT Office Visit Hematology [place] [address] Arturo Cordero MD [facility] DR HEMATOLOGY [place] [address] documented as of this encounter Visit Diagnoses Diagnosis Type 2 diabetes mellitus without long-term current use of insulin documented in this encounter Care Teams Cloth Shrinking Machine Operator Helper Relationship Specialty Start Date End Date Rodney Padilla MD [address] [place] [address] PCP - General 07/18/22 documented as of this encounter
--- OUTSIDE RECORDS SUMMARY | 2024-03-04 21:17 | XMS_ITS | Encounter Summary ---
Author Organization [facility] [place] [address] Care Team Providers Care Black Leather Trimmer Name Role Phone Rodney Padilla MD Primary Care Provider [phone] Encounter Details Date Type Department Care Team (Latest Contact Info) Description 09/19/2023 11:20 AM EDT Laboratory Appointment Lab at [facility] [address] [place] [address] Type 2 diabetes mellitus without complication, with long-term current use of insulin Social History [...] place to sleep or slept in a usp (including now)? No 06/14/2021 Sex and Gender Information Value Date Recorded Sex Assigned at Not on file Gender Identity Not on file Sexual Orientation Not on file documented as of this encounter Plan of Treatment Upcoming Encounters Date Type Department Care Team (Late st Contact Info) Description 03/20/2024 9:00 AM EDT TH Visit (TeleHealth) Sleep Center at [facility] [address] [place] [address] Denisse Hardwick, [facility] 03/20/2024 2:00 PM EDT Clinical Support Family Medicine at [facility] [address] [place] [address] Julia Low, [facility] 05/01/2024 11:20 AM EDT Appointment Mammography/[place] [address] Rodney Padilla MD [address] [facility] [place], [place] [address] 05/01/2024 1:45 PM EDT Office [place] [address] Juanpablo Hernandez MD [facility] [place] [address] 01/30/2025 1:30 PM EDT Appointment Hematology [place] [address] 01/30/2025 3:[address] [place] [address] Arturo Cordero MD [facility] DR HEMATOLOGY AND ONCOLOGY [place], [place] [address] 01/30/2025 4:15 PM EDT Office Visit Hematology [place] [address] Arturo Cordero MD [facility] [address] [place] [address] documented as of this encounter Procedures Procedure Name Priority Date/Time Associated Diagnosis Comments HEMOGLOBIN A1C Routine 09/19/2023 11:24 AM EDT Type 2 diabetes mellitus without complication, with long-term current use of insulin documented in this encounter Results * (ABNORMAL) Hemoglobin A1c (09/19/2023 11:24 AM EDT) Hemoglobin A1c 9.2(H) 4.3 - 5.6 % [facility] Comment: Reference Range: 4.3 - 5.6% 5.7 - 6.4% - Increased Risk of Developing Diabetes Mellitus >= 6.5% - Consistent with diagnosis of Diabetes Mellitus In the absence of hyperglycemia (i.e. plasma glucose > 200 mg/dL) or classic symptoms of hyperglycemia a repeat measurement of HbA1c should be performed on a separate sample to confirm the diagnosis. Diagnosis and Classification of Diabetes Mellitus, Diabetes Care 2013; 36: Suppl. 1, K27-08 Estimated Average Glucose 217 mg/dL [facility] Blood 09/19/2023 11:2 4 AM EDT 09/19/2023 1:14 PM EDT Narrative Resulting Agency Comment Spec In Lab Rodney Padilla MD CHEMISTRY ORDERABLE S [facility] [place] [address] documented in this encounter Visit Diagnoses Diagnosis Type 2 diabetes mellitus without complication, with long-term current use of insulin documented in this encounter Care Teams Black Leather Trimmer Relationship Specialty Start Date End Date Rodney Padilla MD [address] [place] [address] PCP - General 07/18/22 documented as of this encounter
--- OUTSIDE RECORDS SUMMARY | 2024-03-04 21:17 | XMS_ITS | Encounter Summary ---
Author Organization [facility] Address [facility] [place] [address] Care Team Providers Care Dairy Grazer Name Role Phone Rodney Padilla MD Primary Care Provider [phone] Encounter Details Date Type Department Care Team (Latest Contact Info) Description 01/29/2024 Travel Social History Tobacco Use Types Packs/Day Years [...] place to sleep or slept in a fdc (including now)? No 06/14/2021 Sex and Gender Information Value Date Recorded Sex Assigned at Not on file Gender Identity Not on file Sexual Orientation Not on file documented as of this encounter Plan of Treatment Upcoming Encounters Date Type Department Care Team (Late st Contact Info) Description 03/20/2024 9:00 AM EDT TH Visit (TeleHealth) Sleep Center at [facility] [address] [place] [address] Denisse Hardwick, [facility] 03/20/2024 2:00 PM EDT Clinical Support Family Medicine at [facility] [address] [place] [address] Julia Low, [facility] 05/01/2024 11:20 AM EDT Appointment Mammography/[place] [address] Rodney Padilla MD [address] [place] [address] 05/01/2024 1:45 PM EDT Office [place] [address] Juanpablo Hernandez MD [facility] [address] 01/30/2025 1:30 PM EDT Appointment Hematology [place] [address] 01/30/2025 3:[address] [place] [address] Arturo Cordero MD [facility] [place] [address] 01/30/2025 4:15 PM EDT Office Visit Hematology [place] [address] Arturo Cordero MD [facility] [place] [address] documented as of this encounter Visit Diagnoses Not on filedocumented in this encounter Care Teams Dairy Grazer Relationship Specialty Start Date End Date Rodney Padilla MD [address] [place] [address] PCP - General 07/18/22 documented as of this encounter
--- OUTSIDE RECORDS SUMMARY | 2024-03-04 21:17 | XMS_ITS | Encounter Summary ---
Author Organization Count Includes [facility] Address [facility] [place] [address] Care Team Providers Care Child Adolescent Psychiatrist Name Role Phone Rodney Padilla MD Primary Care Provider [phone] Encounter Details Date Type Department Care Team (Late st Contact Info) Description 11/29/2023 1:20 PM EDT Office Visit Dermatology at [facility] [address] [place] [address] Antonia Minor MD [facility] DR [place] [address] Multiple melanocytic nevi; Photoaging of skin; Seborrheic keratoses, inflamed; Clavus; Seborrheic keratoses; Lentigines; Aranda angioma; History of malignant melanoma of eye Social History Tobacco Use Types Packs/Day Years [...] exercise (like a brisk walk)? 0 days 12 /12/2020 Minutes of Exercise per Session Not on [...] No 06/14/2021 Housing Stability Vital Sign Answer Zoiel e Recorded In the last 12 months, [...] place to sleep or slept in a [place] facility (including now)? No 06/14/2021 Sex and Gender Information Value Date Recorded Sex Assigned at Not on file Gender Identity Not on file Sexual Orientation Not on file documented as of this encounter Progress Notes * Antonia Minor MD - 11/29/2023 1:20 PM EDT Images from the original note were not included. DEPARTMENT OF DERMATOLOGY Medical Dermatology Clinic Provider: Antonia Minor MD Patient's preferred name Alize Preferred contact method for results [x]Phone [x]myD-H []Letter Detailed phone message OK? Yes Are there any other people with whom we may discuss your care? 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 w cryo on 05/14/2020 tx topical Mitomycin topically in 2020 Dysplastic nevi No SCC No BCC No AKs No UV Exposure & Protection No Other relevant past medical history + History renal cancer + Heart attack + Heart disease + Diabetes Family History Details Melanoma No NMSC No Other relevant family history No Social History Occupation: Disability Hobbies: Other: Pre-Procedure Screening Details Allergy to lidocaine, epinephrine, Dermabond, chlorhexidine, or adhesives No Bleeding disorder or blood thinners No Implanted devices (Pacemaker, defibrillator, deep brain stimulator, cochlear implant) No History of Present Illness: Alize Gramajo is a 63 y.o. Patient returns to clinic today for a full skin exam. Patient reports the following: - Reports enlarged pores on the nose. Last visit at Dermatology: 11/30/2022 Last visit with this provider: Visit date not found Medications: Reviewed in eD-H Allergies: Reviewed in eD-H Skin Examination: Full skin examination: Patient asked to undress to their comfort level. Verbalized that the provider???s preference is that the patient remove all clothing and that the provider will not examine areas patient elects to keep covered. Patient elects to keep underwear on and have the following examined: scalp, hair, face, ears, neck, chest, axillae, abdomen, back, and upper and lower extremities. Genitalia and buttocks were not examined. Assessment/Plan #. Melanocytic Nevi - Scattered brown macules and papules on trunk and extremities with reassuring pigment pattern on dermoscopy. - Discussed benign appearing nevi based on today's exam. - Recommended follow-up with dermatology if any changes in any pigmented lesions are noted or any concerns regarding new lesions arise. #. Photoaging - Photoaging on the face with increased pore size. - Start Rx tretinoin 0.025% cream: Apply a pea size amount to the face nightly. As it can be irritating, start 2-3 times per week and slowly increase to nightly use. Can also mix with a bland moisturizer to help with irritation. - Discussed that this medication is considered cosmetic, not covered by insurance (clinic will not submit a PA), and will require [id number] payment at the pharmacy. - Discussed GoodRx, coupon printed and provided to patient. #. Inflamed Seborrheic Keratoses - Inflamed, stuck on, waxy papules on the back x1, left breast x1,right axilla x1, left medial thigh x2. - Discussed benign nature of lesion(s) and provided reassurance. - Due to irritation present on today's exam and history of symptoms, discussed removal with cryotherapy. - Patient elects to proceed with cryotherapy today. Procedure: Destruction of lesion(s) with cryotherapy (LN2). Location(s): As noted above Number: 5 Discussed procedure and expectations including risks and benefits. Verbal consent obtained. Treatedwith LN2. There were no complications; Patient tolerated the procedure well. Post-procedure expectations and wound care were reviewed. #. Clavus (Platinum) - Focal hyperkeratotic papule on the left plantar foot. - Discussed that these are caused by repeated pressure to an area and often exacerbated by footwear. - Recommended OTC corn remover pads. #. Seborrheic Keratoses - Stuck on, waxy papules on the trunk and extremities. - Discussed benign nature of lesions and provided reassurance. No treatment necessary at this time. - Discussed with patient treatment of lesions is considered cosmetic and not covered by insurance. Patient was quoted $100 for treatment of up to ten lesions and $200 for up to twenty lesions. #. Lentigines - Scattered light-brown, evenly pigmented, well-demarcated macules on sun-exposed areas of the trunk and extremities. - No worrisome pigmented lesions. Discussed benign nature of lesions and provided reassurance. Willcontinue to monitor. #. Aranda Angiomas - Multiple bright red, well-demarcated papules on the trunk and extremities. - Discussed benign nature of lesions and provided reassurance. No treatment necessary at this time. #. History of Occular Melanoma and Kidney Cancer - Recommend yearly skin exams - Patient has been to Genetics and was negative for BAP1 mutation per patient. Other: Sun protection discussed (protective clothing and SPF30+ broad-spectrum sunscreen) RTC: 1 year for FSE []Note routed to unit secretary [x]Recall placed in scheduling system []Appointment scheduled at checkout Scribe attestation: Nolberto Simmons has performed the documentation for this encounter in the presence of and acting as a scribe for Antonia Minor MD. I performed the above scribed service and agree with the accuracy of the documentation in this encounter. Reviewed and signed by: Antonia Minor MD Dermatology [facility] Staff zigzag topstitcher: Justine Castillo MD Dermatology [facility] * Justine Castillo MD - 11/29/2023 1:20 PM EDT I was the supervising physician working with the Dermatology resident, Antonia Minor MD, in the care of this Dermatology patient in person. For the purposes of billing, the resident provided the care. I have reviewed the encounter note details and level of service. JUSTINE CASTILLO MD Staff Organizational Development Specialist Department of Dermatology [facility] documented in this encounter Plan of Treatment Upcoming Encounters Date Type Department Care Team (Late st Contact Info) Description 03/20/2024 9:00 AM EDT TH Visit (TeleHealth) Sleep Center at [facility] [address] [place] [address] Denisse Hardwick, [facility] 03/20/2024 2:00 PM EDT Clinical Support Family Medicine at [facility] [address] [place] [address] Julia Low, [facility] 05/01/2024 11:20 AM EDT Appointment Mammography/[place] [address] Rodney Padilla MD [address] [place] [address] 05/01/2024 1:45 PM EDT Office [place] [address] Juanpablo Hernandez MD [facility] [address] 01/30/2025 1:30 PM EDT Appointment Hematology [place] [address] 01/30/2025 3:[address] [place] [address] Arturo Cordero MD [facility] DR HEMATOLOGY [place] [address] 01/30/2025 4:15 PM EDT Office Visit Hematology [place] [address] Arturo Cordero MD [facility] DR HEMATOLOGY [place] [address] documented as of this encounter Visit Diagnoses Diagnosis Multiple melanocytic nevi Photoaging of skin Other chronic dermatitis due to solar radiation Seborrheic keratoses, inflamed Clavus Corns and callosities Seborrheic keratoses Lentigines Other dyschromia Aranda angioma Nevus, non-neoplastic History of malignant melanoma of eye Family history of other specified malignant neoplasm documented in this encounter Care Teams Child Adolescent Psychiatrist Relationship Specialty Start Date End Date Rodney Padilla MD [address] [place] [address] PCP - General 07/18/22 documented as of this encounter
--- OUTSIDE RECORDS SUMMARY | 2024-03-04 21:17 | XMS_ITS | Encounter Summary ---
Author Organization [facility] Address One [facility] [place] [address] Care Team Providers Care Vocational Rehabilitation Counselor Name Role Phone Rodney Padilla MD Primary Care Provider [phone] Reason for Visit * Reason Onset Date Comments Prior Authorization 12/07/2023 Avita 0.025% cream Encounter Details Date Type Department Care Team (Late st Contact Info) Description 12/07/[address] [facility] [address] [place] [address] Erika Caraballo LNA Prior Authorization (Avita 0.025% cream) Social History Tobacco Use Types Packs/Day Years [...] place to sleep or slept in a nursing home (including now)? No 06/14/2021 Sex and Gender Information Value Date Recorded Sex Assigned at Not on file Gender Identity Not on file Sexual Orientation Not on file documented as of this encounter Miscellaneous Notes * Telephone Encounter - Erika Caraballo LNA - 12/07/2023 9:16 AM EDT We received a PA request for Avita 0.025% cream. DX is cosmetic. We do not submit cosmetic Pas, insurance will not cover. Archived [facility] Anderson: [id number] - Rx #: [id number] documented in this encounter Plan of Treatment Upcoming Encounters Date Type Department Care Team (Late st Contact Info) Description 03/20/2024 9:00 AM EDT TH Visit (TeleHealth) Sleep Center at [facility] [address] [place] [address] Denisse Hardwick [facility] 03/20/2024 2:00 PM EDT Clinical Support Family Medicine at [facility] [address] [place] [address] Julia Low [facility] 05/01/2024 11:20 AM EDT Appointment Mammography/DXA at [place] [phone] Rodney Padilla MD [address] [place] [address] 05/01/2024 1:45 PM EDT Office Visit Ophthalmology at [place] [address] Juanpablo Hernandez MD [facility] [place] [address] 01/30/2025 1:30 PM EDT Appointment Hematology and Oncology at [place] [address] 01/30/2025 3:[address] Scan at [place] [address] Arturo Cordero MD [facility] [address] [place] [address] 01/30/2025 4:15 PM EDT Office Visit Hematology and Oncology at [place] [address] Arturo Cordero MD [facility] [address] [place] [address] documented as of this encounter Visit Diagnoses Not on filedocumented in this encounter Care Teams Vocational Rehabilitation Counselor Relationship Specialty Start Date End Date Rodney Padilla MD [address] [place] [address] PCP - General 07/18/22 documented as of this encounter
--- OUTSIDE RECORDS SUMMARY | 2024-03-04 21:17 | XMS_ITS | Encounter Summary ---
Author Organization [facility] Address [facility] [place] [place] [address] Care Team Providers Care Claims Representative Name Role Phone Rodney Padilla MD Primary Care Provider [phone] Encounter Details Date Type Department Care Team (Latest Contact Info) Description 08/29/2023 Travel Social History Tobacco Use Types Packs/Day [...] EDT TH Visit (TeleHealth) Sleep Center at [facility] [address] [place] [address] Denisse Hardwick, [facility] 03/20/2024 2:00 PM EDT Clinical Support Family Medicine at [facility] [address] [place] [address] Julia Low, [facility] 05/01/2024 11:20 AM EDT Appointment Mammography/[place] [address] Rodney Padilla MD [address] [facility] [place], [place] [address] 05/01/2024 1:45 PM EDT Office [place] [address] Juanpablo Hernandez MD [facility] [place] [address] 01/30/2025 1:30 PM EDT Appointment Hematology [place] [address] 01/30/2025 3:[address] [place] [address] Arturo Cordero MD [facility] DR [place] [address] 01/30/2025 4:15 PM EDT Office Visit Hematology [place] [address] Arturo Cordero MD [facility] DR [place] [address] documented as of this encounter Visit Diagnoses Not on filedocumented in this encounter Care Teams Claims Representative Relationship Specialty Start Date End Date Rodney Padilla MD [address] [place] [address] PCP - General 07/18/22 documented as of this encounter
--- OUTSIDE RECORDS SUMMARY | 2024-03-04 21:17 | XMS_ITS | Encounter Summary ---
Author Organization [facility] [place] [address] Care Team Providers Care Residential Treatment Counselor Name Role Phone Rodney Padilla MD Primary Care Provider [phone] Reason for Visit * Reason Onset Date Comments Medication Refill 02/18/2024 Encounter Details Date Type Department Care Team (Late st Contact Info) Description 02/18/2024 Refill Family Medicine at [facility] [address] [place] [phone] Rodney Padilla MD [address] [facility] [place] [address] Essential hypertension Social History Tobacco Use Types Packs/Day Years [...] place to sleep or slept in a halfway (including now)? No 06/14/2021 Sex and Gender Information Value Date Recorded Sex Assigned at Not on file Gender Identity Not on file Sexual Orientation Not on file documented as of this encounter Miscellaneous Notes * Telephone Encounter - Bella Hargrove CMA - 02/20/2024 3:57 PM EDT Prescription Renewal Request Name: Alize Gramajo : 1960 Prescription(s) Requested: Requested Prescriptions Pending Prescriptions Disp Refills amLODIPine (Norvasc) 5 mg tablet 90 tablet 3 Sig: Take 1 tablet by mouth daily. pantoprazole EC (Protonix) [address] tablet 90 tablet 3 Sig: Take 1 tablet by mouth daily. losartan (Cozaar) 100 mg tablet 90 tablet 3 Sig: Take 1 tablet by mouth daily. Refused Prescriptions Disp Refills clopidogreL (Plavix) 75 mg tablet 90 tablet 3 Sig: Take 1 tablet by mouth daily. Date of Encounter last in This Dept (If need an appointment send to secretaries to schedule): 12/20/23 Next Encounter in This Dept: 03/20/2024 Date of Last Refill (for each medication): All meds done last on 03/22/23 Medication category requirements (labs etc): 02/01/24 Lab Results Component Value Date NA 140 02/01/2024 K 4.7 02/01/2024 CL 105 02/01/2024 CO2 25 02/01/2024 BUN 14 02/01/2024 CREATININE 0.90 02/01/2024 GLUCOSE 162 02/01/2024 GLUCFASTING 116 (H) 06/29/2019 CALCIUM 9.4 02/01/2024 ESTGFR 71 02/01/2024 Lab Results Component Value Date ALT 28 02/01/2024 AST 21 02/01/2024 ALKPHOS 92 02/01/2024 BILITOT 0.3 02/01/2024 BILIDIR 0.1 09/11/2020 ALBUMIN 4.2 02/01/2024 PROT 6.8 02/01/2024 Status of request: Pended Allergies Allergen Reactions Codeine Phosphate Nausea And Vomiting Erythromycin Base Nausea Only Azithromycin Ibuprofen Stomach upset Lisinopril cough Nsaids (Non-Steroidal Anti-Inflammatory Drug) Nausea And Vomiting Bella Hargrove CMA 02/20/24 3:57 PM documented in this encounter Plan of Treatment Upcoming Encounters Date Type Department Care Team (Late st Contact Info) Description 03/20/2024 9:00 AM EDT TH Visit (TeleHealth) Sleep Center at [facility] [address] [place] [phone] Denisse Hardwick [facility] 03/20/2024 2:00 PM EDT Clinical Support Family Medicine at [facility] [address] [place] [phone] Julia Low [facility] 05/01/2024 11:20 AM EDT Appointment Mammography/[place] [phone] Rodney Padilla MD [address] [facility] [place], [place] [id number] 05/01/2024 1:45 PM EDT Office [place] [address] Juanpablo Hernandez MD [facility] [place] [address] 01/30/2025 1:30 PM EDT Appointment Hematology and Oncology at [place] [address] 01/30/2025 3:[address] Scan at [place] [address] Arturo Cordero MD [facility] [place] [address] 01/30/2025 4:15 PM EDT Office Visit Hematology and Oncology at [place] [phone] Arturo Cordero MD [facility] [place] [address] documented as of this encounter Visit Diagnoses Diagnosis Essential hypertension Unspecified essential hypertension documented in this encounter Care Teams Residential Treatment Counselor Relationship Specialty Start Date End Date Rodney Padilla MD [address] [place] [place] [address] PCP - General 07/18/22 documented as of this encounter
--- OUTSIDE RECORDS SUMMARY | 2024-03-04 21:17 | XMS_ITS | Clinical Summary ---
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 Active traZODone (Desyrel) 100 mg Tablet Take 1 tablet by mouth nightly. 90 tablet 3 06/26/2020 Active melatonin 10 mg Capsule Take 1 capsule by mouth nightly. 04/06/2022 Active LORazepam (Ativan) 0.5 mg Tablet 04/04/2022 Active busPIRone (Buspar) 30 mg Tablet Take 30 mg by mouth 2 times daily. 04/06/2022 Active FreeStyle Lite Meter Kit 04/20/2022 Active FreeStyle Lancets 28 gauge MiscIndications:true betes mellitus 1 each by Other route 3 times daily. Indications: diabetes 100 each 11 06/16/2022 Active Additional Information Patient not taking.Reported on 01/01/2024 freestyle lite stripsIndications:T ype 2 diabetes mellitus with hyperglycemia, without long-term current use of insulin USE TO TEST THREE TIMES A DAY 300 strip 3 02/27/2023 Active Additional Information Patient not taking.Reported on 01/01/2024 loratadine (Claritin) 10 mg Tablet Take 1 tablet by mouth daily. 90 tablet 3 03/22/2023 Active sucralfate (Carafate) 100 mg/mL Suspension Take 10 mLs by mouth 4 times daily. 3726 mL 3 04/05/2023 Active inhalational spacing device (Hesham Aerosol [place] Enhancer) SpacerIndications:C hronic obstructive pulmonary disease, unspecified COPD type 1 each by [facility].(Non-Drug; Combo Route) route as needed. 1 each 2 06/20/2023 Active lamoTRIgine (LaMICtal) 25 mg tabletIndications:b ipolar disorder in remission Take 50 mg by mouth nightly. Indications: bipolar disorder in remission Active Blood-Glucose Meter,Continuous (Dexcom G7 Mail Clerks Supervisor) MiscIndications:Typ e 2 diabetes mellitus with hyperglycemia, without long-term current use of insulin 1 Device by [facility].(Non-Drug; Combo Route) route continuous. 08/18/2023 Active Blood-Glucose Sensor (Dexcom G7 Sensor) DeviceIndications:T ype 2 diabetes mellitus with hyperglycemia, without long-term current use of insulin 1 Device by [facility].(Non-Drug; Combo Route) route every 10 days. 3 each 11 08/18/2023 Active lamoTRIgine (LaMICtal) 150 mg tablet Take 150 mg by mouth Daily at Noon. 08/17/2023 Active fluticasone propionate (Flonase) 50 mcg/actuation [place], Suspension SPRAY 1 SPRAY IN EACH NOSTRIL TWO TIMES A DAY 48 mL 3 09/28/2023 Active nicotine (Nicoderm CQ) 21 mg/24 hr Patch 24 hrIndications:Nicot ine dependence, cigarettes, uncomplicated Change 1 patch on the skin daily. See package instructions 28 patch 1 10/24/2023 Active nicotine polacrilex (Nicorette) 4 mg gumIndications:Federico yuly dependence, cigarettes, uncomplicated Take 1 each by mouth every 2 hours as needed for Smoking cessation. Nothing but water 15 min before or during use. 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 Rinse mouth after use 1 each 10/24/2023 Active Mounjaro 2.5 mg/0.5 mL Pen InjectorIndications :type 2 diabetes mellitus Inject 2.5 mg subcutaneously once a week. Indications: type 2 diabetes mellitus 2 mL 10/27/2023 Active BD Alcohol Swabs Pads, MedicatedIndication s:Type 2 diabetes mellitus with hyperglycemia, without long-term current use of insulin USE TOPICALLY ONCE DAILY 100 each 11/02/2023 Active insulin needles, disposable, 32 gauge x 5/32 NeedleIndications:d iabetes mellitus Inject 1 each subcutaneously daily. Indications: diabetes 100 each 11/02/2023 Active tretinoin (RETIN-A) 0.025 % CreamIndications:Ph otoaging of skin Apply a pea size amount to the face nightly. As it can be irritating, start 2-3 times per week and slowly increase to nightly use. Can also mix with a bland moisturizer to help with irritation. 45 g 11/29/2023 Active Lantus Solostar U-100 Insulin 100 unit/mL (3 mL) penIndications:type 2 diabetes mellitus Inject 10 Units subcutaneously nightly. Indications: type 2 diabetes mellitus 01/30/2024 Active metFORMIN XR (Glucophage XR) 500 mg ER 24 hr tablet Take 2 tablets by mouth 2 times daily (with meals). 360 tablet 3 02/13/2024 Active metoprolol succinate XL (Toprol-XL) 25 mg ER 24 hr tablet Take 1 tablet by mouth daily. 90 tablet 3 02/13/2024 Active clopidogreL (Plavix) 75 mg tablet Take 1 tablet by mouth daily. 90 tablet 02/13/2024 Active simvastatin (Zocor) 10 mg tabletIndications:M ixed hyperlipidemia Take 1 tablet by mouth daily. 90 tablet 02/13/2024 Active amLODIPine (Norvasc) 5 mg tabletIndications:E ssential hypertension Take 1 tablet by mouth daily. 90 tablet 02/20/2024 Active pantoprazole EC (Protonix) [address] tablet Take 1 tablet by mouth daily. 90 tablet 02/20/2024 Active losartan (Cozaar) 100 mg tablet Take 1 tablet by mouth daily. 90 tablet 3 02/20/2024 Active albuteroL 90 mcg/actuation inhaler (HFA) Inhale 2 puffs into the lungs every 4 hours as needed for Wheezing. USE WITH SPACER 11/24/2023 Active Active Problems Problem Noted Date Diagnosed Date Severe obesity 09/19/2023 Edema of lower extremity 08/23/2021 Primary osteoarthritis of both knees 08/23/2021 Degenerative disc disease, lumbar 10/21/2020 BPPV (benign paroxysmal positional vertigo), rig ht 10/21/2020 Malignant melanoma of conjunctiva, left 05/19/20 20 Conjunctival tumor 05/15/2020 OAB (overactive bladder) 01/13/2020 Adrenal mass 01/13/2020 Overview (04/24/2022): Imaging history: 03/2019 - 17mm mass LEFT adrenal gland 05/02/2019 MRI - 17 mm nodule seen in the LEFT adrenal gland. On the out of phase images it exhibits diffuse signal dropout, indicating intracellular fat, compatible with an adenoma. RIGHT adrenal gland is normal. 01/13/2020 CT Abd/Pelvis - Adrenal: LEFT adrenal nodule measuring approximately 1.4 cm unchanged. On unenhanced unchanged measures -3 Hounsfield units, c/w a benign adenoma. RIGHT adrenal is normal. 04/12/2020 CT Abd/Pelvis - stable 12/17/2020 CT Abd/Pelvis - stable 02/15/2021 CT Abd/Pelvis - 14mm, 17 hounsfield units 06/24/2021 CT Abd/Pelvis - 15 mm left adrenal nodule characterized as a lipid rich adenoma is stable. Previously measuring 17 mm. Difference likely reflecting position. 12/23/2021 CT Abd/Pelvis - 20mm stable left adrenal nodule. 04/13/22 CT Abd/Pelvis [facility] (media) 1.8 cm adrenal nodule Biochemical testing: Per Dr. Medina's note: 04/2019: adrenal metabolic workup: normal Aldosterone 5.5-nl Cortisol 1-nl Renin 2.2-nl Normetanephrine 0.46-normal Metanephrines 0.20 normal ?? Assessment & Plan (04/24/2022 3:53 PM EDT): Patient was not aware of the adrenal nodule being monitored via CT over time. Reviewed that this has been noted to be stable in appearance. Summarized lab and imaging findings in her problem list for future reference. She has regular surveillance imaging with Heme/Onc given her history of kidney cancer. Malignant neoplasm of kidney 01/13/2020 Renal mass, left 06/28/2019 Left atrial dilatation - severe 06/27/2019 Left renal mass 05/29/2019 Overview (05/29/2019): Also has +FHx renal cancer. 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 (Her remote history of CIN1 does not change either of these recs, because it has been adequately followed up with return to normal cytology/HPV neg H/O heart artery stent x4 LCX 05/10/2019 Diabetic polyneuropathy asso ciated with type 2 diabetes mellitus 05/10/2019 Bipolar affective disorder in remission 05/10/20 Overview (05/10/2019): Diagnosis in [facility] records, unconfirmed Anxiety 05/09/2019 Type 2 diabetes mellitus wit hout long-term current use of insulin 04/11/2019 TITO (obstructive sleep apnea) 04/09/2019 Overview (11/06/2019): PSG 03/05/10 @ 271 lbs: AHI of 27, [facility] AHI of 16, min saturation of 61%, significant desaturations in REM Split night study 08/13/19 @235 lbs: AHI of 3, RDI of 7 but only observed side NREM pretreatment so the mild TITO noted on this study is likely an underestimation of sleep apnea severity. Abnormal MRI of head 03/28/2019 Overview (04/11/2019): 2019 MRI Scattered periventricular and subcortical white matter foci without restricted diffusion or enhancement. Findings are indeterminate with broad differential which includes small inactive demyelinating lesions, chronic small vessel ischemic changes from microangiopathy, hypertension or migraines, or even inflammation from vasculitides or other inflammatory/inflammatory processes. Mixed hyperlipidemia 03/28/2019 Essential hypertension 03/28/2019 Recurrent major depressive disorder, in remissio n 03/28/2019 Chronic bilateral low back pain without sciatica 03/28/2019 Altered mental status 10/08/2008 Overview (10/14/2010): Initial evaluation by Dr. Bert Kessler: Possible frontal lobe dysfunction Normal head CT Brain SPECT scan: No abnormalities EEG: Low-voltage EEG within normal limits Neuropsychological testing: Interpretation pending Normal B12, folate, TSH, etc. Assessment & Plan (10/14/2010 5:34 PM EDT): The patient returns for followup regarding reviewing of results from testing it was ordered in July 2010. All of those tests were normal. She had just recently undergone neuropsychological testing. She is able to tell me the details and the rationale for the testing, and what it can and cannot measure. Overall, the patient has been doing better. The course of the symptoms seem to be at its worst immediately after the myocardial infarction/coronary stent placement. She has had a steady improvement ever since that hospitalization.. 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 The left ventricular chamber size is normal. Mild concentric left ventricular hypertrophy is observed. There is normal global left ventricular systolic function. The quantitative left ventricular ejection fraction by biplane Richardson's method is 71%. There are no left ventricular segmental wall motion abnormalities. 2. The right ventricle is normal in size. Right ventricular global systolic function is normal. The estimated pulmonary artery systolic pressure is 36 mmHg. 3. The left atrium is severely dilated. 4. The aortic valve leaflets are mildly thickened. There is no evidence of aortic valve stenosis. 5. There is mild dilatation of the ascending aorta. 6. See remainder of report for additional findings. 7. In direct comparison to a 2008 study, LV segmental WMAs are no longer present. Resolved Problems Problem Noted Date Diagnosed Date Resolved Date COPD 05/10/2019 12/20/2023 Encounters Date Type Department Care Team Description 02/28/2024 11:15 AM EDT TH Visit (TeleHealth) Sleep Center at [facility] [address] [place] [address] Barbra Martínez, RT PATIENT NOT SEEN 02/28/2024 Notes Only Sleep Center at [facility] [address] [place] [address] Barbra Martínez, RT 02/22/2024 Travel 02/18/2024 Refill Family Medicine at [facility] [address] [place] [address] Rodney Padilla MD Essential hypertension 02/10/2024 Refill Family Medicine at [facility] [address] [place] [phone] Rodney Padilla MD Mixed hyperlipidemia 02/10/2024 Refill Family Medicine at [facility] [address] [place] [address] Rodney Padilla MD Mixed hyperlipidemia 02/10/2024 Refill Family Medicine at [facility] [address] [place] [phone] Luis E Narayan MD 02/01/2024 11:15 AM EDT Office Visit Hematology [place] [phone] Arturo Cordero MD Neilan, 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, 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 Malignant melanoma of conjunctiva, left (Primary Dx); Lung nodule; Renal cell cancer, left 02/01/2024 8:12 AM EDT - 02/01/2024 11:59 PM EDT Hospital Encounter Hematology [place] [phone] Malignant melanoma of conjunctiva, left Discharge Disposition: Home 02/01/2024 8:04 AM EDT - 02/01/2024 8:11 AM EDT Hospital [place] [phone] Arturo Cordero MD Malignant melanoma of conjunctiva, left Discharge Disposition: Home 02/01/2024 Travel 01/29/2024 Travel 01/01/2024 11:00 AM EDT TH Visit (TeleHealth) Family Medicine at [facility] [address] [place] [address] Julia Low, [facility] Type 2 diabetes mellitus without long-term current use of insulin 12/20/2023 2:00 PM EDT Laboratory Appointment Lab at [facility] [address] [place] [phone] Type 2 diabetes mellitus without long-term current use of insulin 12/20/2023 1:30 PM EDT Office Visit Family Medicine at [facility] [address] [place] [phone] Rodney Padilla MD Type 2 diabetes mellitus without long-term current use of insulin; Essential hypertension; TITO (obstructive sleep apnea); Interstitial lung disease 12/19/2023 Travel 12/07/2023 Telephone Dermatology at [facility] [address] [place] [phone] Erika Caraballo LNA Prior Authorization ([employer] 0.025% cream) from Last 3 Months Immunizations Name Administration Dates Next Due Covid-19 (Pfizer), Gordon Cap Bivalent 30mcg (12Yrs+) 06/07/2022 Influenza Quadrivalent with Preservative 05/06/2020 Influenza Quadrivalent, Pres ervative Free 06/20/2023,06/07/2022,05/31/2021,04/09,05/08/2015 Influenza Vaccine, Whole 05/10/2007 Pneumococcal Conjugate (Prevnar 13) 04/09/2019 Pneumococcal Polysaccharide (Pneumovax 23) 05/10/2007 TD Adult 10/07/2005 Td Adult, Absorbed, Preservative Free 06/24/2011 ,09/07/2005 Tdap 04/09/2019,06/24/2011 Family History Medical History Relation Comments Heart Disease Father Breast Cancer Maternal Aunt 1 Kidney Cancer Maternal Aunt 2 Bladder Cancer Maternal Grandmother Kidney Cancer Maternal Grandmother Cancer Maternal Half-Brother kidney vs pancreatic primary Uterine Cancer Mother hysterectomy age 76 Medical History Unknown Other Brain Cancer Paternal Aunt 1 Cancer Paternal Aunt 2 Unknown primary Glaucoma Neg Hx Macular Degeneration Neg Hx Retinal Detachment Neg Hx Relation Status Comments Father Maternal Aunt 1 Maternal Aunt 2 Maternal Grandmother Maternal Half-Brother Mother Alive Other Paternal Aunt 1 Paternal Aunt 2 Social History Tobacco Use Types Packs/Day Years Used Date Smoking Tobacco: Every Day Cigarettes 1 40 Smokeless Tobacco: Never Tobacco Cessation:Ready to Q uit: No; Counseling Given: Yes Comments:Not today. Very anxious Alcohol Use Standard Drinks/Week Comments No 0 [...] place to sleep or slept in a fci (including now)? No 06/14/2021 Sex and Gender Information Value Date Recorded Sex Assigned at Not on file Gender Identity Not on file Sexual Orientation Not on file Last Filed Vital Signs Vital Sign Reading Time Taken Comments Blood Pressure 144/91 02/01/2024 11:19 AM EDT Pulse 78 02/01/2024 11:19 AM EDT Temperature 36.2 ??C (97.2 ??F) 02/01/2024 11:19 AM E DT Respiratory Rate 16 02/01/2024 11:19 AM EDT Oxygen Saturation 98% 02/01/2024 11:19 AM EDT Inhaled Oxygen Concentration - - Weight 108.9 kg (240 lb) 02/27/2024 3:17 PM EDT Height 160 cm (5' 3) 02/27/2024 3:17 PM EDT Body Mass Index 42.51 02/27/2024 3:17 PM EDT Plan of Treatment Upcoming Encounters Date Type Department Care Team (Late st Contact Info) Description 03/20/2024 9:00 AM EDT TH Visit (TeleHealth) Sleep Center [facility] [address] [place] [phone] Denisse Hardwick, [facility] 03/20/2024 2:00 PM EDT Clinical Support Family Medicine [facility] [address] [place] [phone] Julia Low, [facility] 05/01/2024 11:20 AM EDT Appointment Mammography/[place] [address] Rodney Padilla MD [address] [facility] [place] [address] 05/01/2024 1:45 PM EDT Office [place] [address] Juanpablo Hernandez MD [facility] [place] [address] 01/30/2025 1:30 PM EDT Appointment Hematology [place] [address] 01/30/2025 3:[address] [place] [address] Arturo Cordero MD [facility] [address] [place] [address] 01/30/2025 4:15 PM EDT Office Visit Hematology [place] [address] Arturo Cordero MD [facility] [address] [place] [address] Health Maintenance Due Date Last Done Comments CT Colonography 1959 FIT DNA 1959 FIT 1959 Sigmoidoscopy (10 year) with FIT yearly 1959 Sigmoidoscopy 1959 Zoster vaccine (1 of 2) 11/11/2009 Advance Directive 11/11/2014 HPV test 01/07/2023 01/07/2018 (See prior EHR) PAP Smear 01/07/2023 01/07/2018 (See prior EHR) Covid-19 Vaccine (2 - season) 2023 06/07/2022 Influenza (Flu) vaccine (1 of 1 - Influenza standard series) 03/10/2024 06/20/2023, 06/07/2022, 05/31/2021, Additional history exists DM Hemoglobin A1c 03/21/2024 12/20/2023, , 06/20/2023, Additional history exists DM Opthalmology Exam 07/26/2024 07/26/2023, 10/05/2022, 11/17/2021, Additional history exists Pneumococcal Vaccine: At-Risk 5-64yrs (3 of 3 - PPSV23 or PCV20) 11/11/2024 04/09/2019, 05/10/2007 Breast Cancer screening 11/30/2024 12/01/19 23, 07/27/2021, 07/22/2020, Additional history exists DM Urine Microalbumin yearly 12/19/2024 12/20/2023, 06/20/2023, 06/21/2019 DM Creatinine yearly 01/31/2025 02/01/2024, 08/03/2023, 06/20/2023, Additional history exists Tetanus vaccine 04/09/2029 04/09/2019, 06/09, 06/24/2011, Additional history exists Colonoscopy 04/18/2031 04/18/2021 (Outs ivelisse per patient (enter details in comments)), 04/18/2021 (Outside per patient (enter details in comments)) Colorectal Cancer Screening 04/18/2031 Breast Cancer Share Decision Needed 01/30/2110 Postponed from 1999 (Provider recommendation) Tdap adult Completed 04/09/2019, 06/24/2011 HIV screen Completed 06/21/2019 Hepatitis C Screening Completed 06/21/2019 Medical Devices Implanted Type Area Baccarat Manager Device Identifier Shelf Expiration Date Model / Serial / Lot Cryopreserved Human Amniotic Membrane Implanted:Qty: 1 on 05/14/2020 by Juanpablo Hernandez MD at COUNTS INCLUDE 234 BEDS AT [facility] Left: Eye 03/27/2022 [id number] / [id number] / Procedures Procedure Name Priority Date/Time Associated Diagnosis Comments CT NECK SOFT TISSUE W CONTRAST Routine 02/01/2024 10:24 AM EDT Malignant melanoma of conjunctiva, left CT CHEST ABDOMEN PELVIS W CONTRAST (GENERIC) Routine 02/01/2024 10:24 AM EDT Malignant melanoma of conjunctiva, left DIFFERENTIAL, AUTOMATED Routine 02/01/2024 8:19 AM EDT Malignant melanoma of conjunctiva, left HEMOGRAM Routine 02/01/2024 8:19 AM EDT Malignant melanoma of conjunctiva, left COMPREHENSIVE METABOLIC PANEL Routine 02/01/2024 8:19 AM EDT Malignant melanoma of conjunctiva, left CBC (WITH DIFF) Routine 02/01/2024 8:19 AM EDT Malignant melanoma of conjunctiva, left LACTATE DEHYDROGENASE Routine 02/01/2024 8:19 AM EDT Malignant melanoma of conjunctiva, left U ALBUMIN/CRE RATIO Routine 12/20/2023 2 :28 PM EDT Type 2 diabetes mellitus without long-term current use of insulin HEMOGLOBIN A1C Routine 12/20/2023 2:14 PM EDT Type 2 diabetes mellitus without long-term current use of insulin MAMMO SCREENING CAD AND JOSE GUADALUPE BILATERAL Routine 11/30/2022 2:59 PM EDT Screening mammogram for breast cancer HC HIV SCREEN, 4TH GENERATION Routine 06/21/2019 2:09 PM EST Healthcare maintenance HC HEPATITIS C ANTIBODY Routine 06/21/2019 2:09 PM EST Healthcare maintenance from Last 3 Months or Most Recently Relevant to Health Maintenance Results * CT Chest Abdomen Pelvis w Contrast (Generic) (02/01/2024 10:24 AM EDT) WORKSTATION ID [id number] RAD Anatomical Region Laterality Modality Abdomen, Pelvis Computed Tomogra phy Impressions 02/02/2024 9:52 AM EDT 1. ??No evidence of metastatic disease in the chest, abdomen and pelvis. 2. ??Liver steatosis and borderline hepatomegaly. Thank you for letting us participate in the care of this patient. ??If you are a health care provider and have any questions regarding this report, please contact the number below. ??For patients who have questions please contact the health medicare interviewer that requested your imaging first. ? Narrative 02/02/2024 9:52 AM EDT EXAMINATION: CT CHEST ABDOMEN PELVIS W CONTRAST (GENERIC) CLINICAL HISTORY: Metastatic disease evaluation C69.02, Malignant neoplasm of left conjunctiva TECHNIQUE: Helical CT of the chest, abdomen, and pelvis following the intravenous administration of contrast. Administered 120.0 ml of OMNIPAQUE 350.00 mg/ml. Oral contrast was administered. COMPARISON: August 03, 2023 FINDINGS: Chest: Lungs and large airways: No suspicious masses or nodules. Pleura: No effusion. Heart/vasculature: Atherosclerotic calcifications within the normal caliber aortic arch. Scattered coronary calcifications. No cardiac enlargement. Lymph nodes: No enlarged lymph nodes. Mediastinum and bess: Normal. Chest wall: Unremarkable. Abdomen/pelvis: Liver: Upper limits of normal at 17 cm craniocaudally. Heterogeneously decreased attenuation consistent with steatosis. No focal observations. Bile ducts: Nondilated. Gallbladder: No calcified gallstones. Normal caliber wall. Pancreas: Normal attenuation without ductal dilatation. Spleen: Normal. Adrenals: Adenomatous proliferation of the left adrenal gland. No suspicious nodules. Kidneys: Post resection changes in the left kidney. No suspicious masses or hydronephrosis. Urinary Bladder: Normal. Vasculature: Atheromatous abdominal aorta is normal in caliber. Lymph Nodes: No enlarged lymph nodes. Bowel: Nondilated, no wall thickening. ?? Peritoneum and retroperitoneum: No free fluid or loculated fluid collection. No pneumoperitoneum. No mesenteric inflammation. Abdominal wall: Intact. Reproductive organs: Normal. Osseous structures: Degenerative spondylosis changes in the thoracic spine and the lumbar spine. Facet hypertrophic changes lower lumbar spine. No suspicious lytic or sclerotic osseous lesions detected. Procedure Note Leo Camlio MD - 02/02/2024 EXAMINATION: CT CHEST ABDOMEN PELVIS W CONTRAST (GENERIC) CLINICAL HISTORY: Metastatic disease evaluation C69.02, Malignant neoplasm of left conjunctiva TECHNIQUE: Helical CT of the chest, abdomen, and pelvis following the intravenous administration of contrast. Administered 120.0 ml ofOMNIPAQUE 350.00 mg/ml. Oral contrast was administered. COMPARISON: August 03, 2023 FINDINGS: Chest: Lungs and large airways: No suspicious masses or nodules. Pleura: No effusion. Heart/vasculature: Atherosclerotic calcifications within the normalcaliber aortic arch. Scattered coronary calcifications. No cardiac enlargement. Lymph nodes: No enlarged lymph nodes. Mediastinum and bess: Normal. Chest wall: Unremarkable. Abdomen/pelvis: Liver: Upper limits of normal at 17 cm craniocaudally. Heterogeneouslydecreased attenuation consistent with steatosis. No focal observations. Bile ducts: Nondilated. Gallbladder: No calcified gallstones. Normal caliber wall. Pancreas: Normal attenuation without ductal dilatation. Spleen: Normal. Adrenals: Adenomatous proliferation of the left adrenal gland. Nosuspicious nodules. Kidneys: Post resection changes in the left kidney. No suspicious massesor hydronephrosis. Urinary Bladder: Normal. Vasculature: Atheromatous abdominal aorta is normal in caliber. Lymph Nodes: No enlarged lymph nodes. Bowel: Nondilated, no wall thickening. Peritoneum and retroperitoneum: No free fluid or loculated fluidcollection. No pneumoperitoneum. No mesenteric inflammation. Abdominal wall: Intact. Reproductive organs: Normal. Osseous structures: Degenerative spondylosis changes in the thoracic spineand the lumbar spine. Facet hypertrophic changes lower lumbar spine. Nosuspicious lytic or sclerotic osseous lesions detected. IMPRESSION 1. No evidence of metastatic disease in the chest, abdomen and pelvis. 2. Liver steatosis and borderline hepatomegaly. Thank you for letting us participate in the care of this patient. If youare a health care provider and have any questions regarding this report,please contact the number below. For patients who have questions please contactthe health medicare interviewer that requested your imaging first. Arturo Cordero MD IMG CT ORDERABLES * CT Neck Soft Tissue w Contrast (Generic) (02/01/2024 10:24 AM EDT) WORKSTATION ID [id number] RAD Anatomical Region Laterality Modality Neck, Head Computed Tomogra phy Impressions 02/02/2024 4:32 PM EDT No evidence of malignancy or lymphadenopathy. I have personally reviewed the image(s) and the resident's interpretation and agree with the findings, Dipika Palacios at 02/02/2024 4:32 PM Thank you for letting us participate in the care of this patient. ??If you are a health care provider and have any questions regarding this report, please contact the number below. ??For patients who have questions please contact the health medicare interviewer that requested your imaging first. ? 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 TECHNIQUE: CT neck performed after the intravenous administration of contrast. 120 mL of Omnipaque 350. COMPARISON: CT neck 08/03/2023 FINDINGS: Soft tissue compartments are well demarcated without mass or mass effect. Normal pharyngeal and glottic contours. No lymphadenopathy. Calcified plaque at the carotid bifurcations contributes to mild to moderate narrowing of the proximal ICAs. Normal thyroid and salivary glands. Lung apices are clear. Mild cervical spondylosis. Facet arthropathy most advanced on the right at C4-5. No lytic or sclerotic lesions. 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 TECHNIQUE: CT neck performed after the intravenous administration of contrast. 120 mL of Omnipaque 350. COMPARISON: CT neck 08/03/2023 FINDINGS: Soft tissue compartments are well demarcated without mass or mass effect.Normal pharyngeal and glottic contours. No lymphadenopathy. Calcified plaque at the carotid bifurcationscontributes to mild to moderate narrowing of the proximal ICAs. Normal thyroid and salivary glands. Lung apices are clear. Mild cervical spondylosis. Facet arthropathy most advanced on the right atC4-5. No lytic or sclerotic lesions. IMPRESSION No evidence of malignancy or lymphadenopathy. I have personally reviewed the image(s) and the resident's interpretationand agree with the findings, Dipika Palacios at 02/02/2024 4:32 PM Thank you for letting us participate in the care of this patient. If youare a health care provider and have any questions regarding this report,please contact the number below. For patients who have questions please contactthe health medicare interviewer that requested your imaging first. Arturo Cordero MD IMG CT ORDERABLES * (ABNORMAL) Hemogram (02/01/2024 8:19 AM EDT) White Blood Cell 8.0 4.0 - 9.5 x10(3)/mc L [facility] Red Blood Cell 4.47 4.00 - 5.21 x10(6)/mc L [facility] Hemoglobin 13.1 11.7 - 15.5 g/dL [facility] Hematocrit 39.4 35.7 - 45.8 % [facility] Mean Cell Volume 88.1 82.6 - 94.4 fL [facility] Mean Cell Hemoglobin 29.3 27.1 - 32.0 pg [facility] Mean Cell Hemoglobin Concentration 33.2 31.7 - 35.0 g/dL [facility] Platelet 371(H) 145 - 357 x10(3)/mc L [facility] RDW Standard Deviation 45.4 37.0 - 46.0 fL [facility] RDW coefficient of variation 14.3(H) 11.5 - 14.1 % [facility] Mean Platelet Volume 9.4 7.6 - 12.9 fL [facility] NRBC% auto 0.0 % [facility] NRBC Absolute 0.000 0.000 - 0.000 x10(3)/ L [facility] Blood 02/01/2024 8:19 AM EDT 02/01/2024 8:39 AM EDT Narrative Resulting Agency Comment Spec In Lab Tee Lara MD HEMATOLOGY ORD ERABLES [facility] [place] [address] * Differential, Automated (02/01/2024 8:19 AM EDT) Neutrophil % 65.9 % [facility] Neutrophil Absolute 5.25 1.70 - 6.10 x10(3)/[facility] Lymph % 24.4 % [facility] Lymphocytes Abs 1.9 0.9 - 3.2 x10(3)/[facility] Monocyte % 7.5 % [facility] Monocyte Abs 0.6 0.3 - 0.9 x10(3)/[facility] Eos % 1.3 % [facility] Eosinophils Abs 0.1 0.0 - 0.4 x10(3)/[facility] Basophil % 0.6 % [facility] Baso Absolute 0.0 0.0 - 0.1 x10(3)/[facility] Immature Gran % 0.30 % [facility] Comment: Immature granulocytes(IG's)percentage and absolute count will include metamyelocytes, myelocytes, and promyelocytes. Blood smears from CBCs yielding IG's will be scanned manually for concordance. If this scan disagrees with the automated IG or if promyelocytes are noted, a manual differential will be performed. Immature Gran Absolute 0.02 0.00 - 0.04 x10(3)/[facility] Blood 02/01/2024 8:19 AM EDT 02/01/2024 8:39 AM EDT Narrative Resulting Agency Comment Spec In Lab Tee Lara MD HEMATOLOGY ORD ERABLES Performing Organization Address City/[facility]/ZIP Co de Phone Number [facility] [place] [address] * Lactate Dehydrogenase (02/01/2024 8:19 AM EDT) Lactate Dehydrogenase 195 110 - 220 unit/L [facility] Blood 02/01/2024 8:19 AM EDT 02/01/2024 8:39 AM EDT Narrative Resulting Agency Comment Spec In Lab Arturo Cordero MD CHEMISTRY ORDERABLES Performing Organization Address [facility] Co de Phone Number [facility] [place] [address] * Comprehensive metabolic panel (non-fasting) (02/01/2024 8:19 AM EDT) Glucose 162 65 - 199 mg/dL [facility] Comment:Diabetes: >=200 mg/d L plus symptoms Blood Urea Nitrogen 14 8 - 18 mg/dL [facility] Creatinine 0.90 0.70 - 1.20 mg/dL [facility] Sodium 140 135 - 145 mmol/L [facility] Potassium 4.7 3.5 - 5.0 mmol/L [facility] Comment: Please note: ??Patients with WBC >100,000 may have falsely elevated Potassium levels. ??For accurate Potassium quantification in these patients send serum separator tube (gold top) for subsequent determinations. ??Contact the Clinical Chemistry Laboratory if there are any questions. Chloride 105 98 - 107 mmol/L [facility] Carbon Dioxide 25 22 - 31 mmol/L [facility] Anion Gap 10 5 - 15 mmol/L [facility] Calcium 9.4 8.5 - 10.5 mg/dL [facility] Protein, Total 6.8 6.1 - 8.0 g/dL [facility] Albumin 4.2 3.2 - 5.2 g/dL [facility] Aspartate Aminotransferase 21 0 - 30 unit/L [facility] Alanine Aminotransferase 28 0 - 30 unit/L [facility] Alkaline Phosphatase 92 35 - 105 unit/L [facility] Bilirubin, Total 0.3 0.2 - 1.3 mg/dL [facility] Est Glomerular Filtration Rate 71 >=60 mL/min/1. 73 m?? [facility] Comment: This patient's estimated GFR was calculated using the 2020 CKD-EPI equation. The estimated GFR can vary from the measured GFR by up to 30% in the absence of rapidly changing kidney function. Assessment of the estimated GFR is not appropriate when creatinine concentrations are rapidly changing. For clinical situations in which a more precise estimate of GFR is necessary, consider alternative methods of GFR estimation such as a 24-hour urine creatinine clearance. Assignment of CKD stage 1-5 for patients with an eGFR near the transition point between stages may be based on clinical assessment of muscle mass and symptoms in addition to eGFR. Blood 02/01/2024 8:19 AM EDT 02/01/2024 8:39 AM EDT Narrative Resulting Agency Comment Spec In Lab Arturo Cordero MD CHEMISTRY ORDERABLES [facility] [place] [address] * U Albumin/Cre Ratio (12/20/2023 2:28 PM EDT) Albumin / Creatinin Ratio, Urine Not Calculated 0 - 29 mcg/mg Cr [facility] Comment: Reference Ranges: <30 mcg/mg: Normal 30-300 mcg/mg: Moderately increased albuminuria.* >300 mcg/mg: Severely increased albuminuria. * ACEI or ARB recommended if diabetic; suggested if BP>130/80 without diabetes ACEI or ARB strongly recommended if diabetic; recommended if BP>130/80 without diabetes Two of three specimens collected within a 3 to 6 month period should be abnormal before considering a patient to have albuminuria. Transient causes: exercise, fever, infection, CHF, marked hyperglycemia or hypertension. Persistent albuminuria indicates CKD and is an independent risk factor for ASCVD. ADA Standards of Medical Care in Diabetes-2016; KDIGO: Kidney International Supplements (2012) 2, 357? 362 Albumin, Urine <3.0 mg/L [facility] Creatinine, Urine 75 mg/dL [facility] Urine 12/20/2023 2:28 PM EDT 12/20/2023 4:11 PM EDT Narrative Resulting Agency Comment Spec In Lab Rodney Padilla MD URINE ORDERABLES Performing Organization Address [facility] Co de Phone Number [facility] [place] [address] * (ABNORMAL) Hemoglobin A1c (12/20/2023 2:14 PM EDT) Hemoglobin A1c 9.4(H) 4.3 - 5.6 % [facility] Comment: Reference Range: 4.3 - [...] Mellitus, Diabetes Care 2013; 36: Suppl. 1, S67-27 Estimated Average Glucose 222 mg/dL [facility] Blood 12/20/2023 2:14 PM EDT 12/20/2023 4:37 PM EDT Narrative Resulting Agency Comment Spec In Lab Rodney Padilla MD CHEMISTRY ORDERABLE S Performing Organization Address [facility] Co de Phone Number [facility] [place] [address] * Mammo Screening Cad and Jose Guadalupe Bilateral (11/30/2022 2:59 PM EDT) Anatomical Region Laterality Modality Breast Bilateral Mammography Narrative 12/01/2022 7:19 AM EDT BILATERAL MAMMOGRAPHY REASON FOR EXAM: Screening TECHNIQUE: CC and MLO views were obtained of each breast using standard 2-D mammography as well as 3-D tomosynthesis. Computer aided detection was used. This is compared with prior images. FINDINGS: ??The breasts are almost entirely fatty. There are no suspicious microcalcifications, masses, or areas of distortion. The pattern is stable. CONCLUSION: No mammographic evidence of malignancy. RECOMMENDATION: Regular screening mammograms starting between age 40 and 50 reduces the risk of from breast cancer. All screening tests have both risks and benefits. These risks and benefits should be assessed for each individual patient through discussion with their provider to determine their preferred breast cancer screening schedule. Women should report any breast changes to a health care provider right away. Some women, because of their family history, a genetic tendency, or other factors, should be screened with annual breast MRI as well as with mammograms. (The number of women who fall into this category is very small). Patients and health care providers should discuss each patient? s history to decide if earlier screening and/or breast MRI are appropriate. Screening should continue as long as a woman is in good health and is expected to live 10 years or longer. Screening mammography may not detect 10-15% of breast cancers. A result letter has been sent to this patient by [facility]. BIRADS CATEGORY 1: NEGATIVE Electronically signed by: ZEENAT FLORES MD Rodney Padilla MD IMG MAMMO ORDERABLE S * Hepatitis C Antibody (06/21/2019 2:09 PM EST) Hepatitis C Antibody Negative Negative [facility] Blood specimen (specimen) 06/21/2019 2:09 PM EST 06/21/2019 6:01 PM EST Narrative Resulting Agency Comment Spec In Lab Luis E Narayan MD CHEMISTRY ORDERABLE S [facility] [place] [address] * HIV Screen, 4th Generation ([facility]/CGP/APD) (06/21/2019 2:09 PM EST) HIV Ab/Ag Screen Negative Negative [facility] Comment: This 4th Generation HIV test screens for the presence of the HIV-1 p24 antigen as well as antibodies reactive against HIV-1 and HIV-2. A negative screen does not rule out an acute HIV infection. If acute HIV infection is suspected, testing should be repeated in 2 - 3 weeks or HIV nucleic acid testing performed. Blood specimen (specimen) 06/21/2019 2:09 PM EST 06/21/2019 6:01 PM EST Narrative Resulting Agency Comment Spec In Lab Luis E Narayan MD CHEMISTRY ORDERABLE S [facility] [place] [address] from Last 3 Months or Most Recently Relevant to Health Maintenance Advance Directives * Attempt Cardiopulmonary Resuscitation - Inpatient (Latest Code Status on File) Date Activated Date Inactivated Comments 05/14/2020 11:37 AM 05/14/2020 3:39 PM Question Answer Comments Code Status decision made by: Patient Content of discussion: full code for eye surgery * Full Code Date Activated Date Inactivated Comments 06/28/2019 4:46 PM 07/01/2019 6:52 PM Question Answer Comments Does patient have capacity to make decision: Yes * Full Code Date Activated Date Inactivated Comments 06/28/2019 7:49 AM 06/28/2019 4:04 PM Question Answer Comments Does patient have capacity to make decision: Yes Care Teams [employer] Relationship Specialty Start Date End Date Rodney Padilla MD [address] [place] [address] PCP - General 07/18/22
--- OUTSIDE RECORDS SUMMARY | 2024-03-04 21:17 | XMS_ITS | Encounter Summary ---
Author Organization [facility] [address] Care Team Providers Care Customer Marketing Intern Name Role Phone Rodney Padilla MD Primary Care Provider [phone] Reason for Visit * Reason Comments Follow-up Abdominal discomfort Encounter Details Date Type Department Care Team (Latest Contact Info) Description 09/19/2023 10:30 AM EDT Office Visit Family Medicine at [facility] [address] [place] [phone] Rodney Padilla MD [address] [facility] [place] [address] Severe obesity; Chronic obstructive pulmonary disease, unspecified COPD type; Bipolar affective disorder in remission; Adrenal mass; Diabetic polyneuropathy associated with type 2 diabetes mellitus; 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; Abdominal bloating; Type 2 diabetes mellitus without complication, with [...] Sign Reading Time Taken Comments Blood Pressure 150/78 09/19/2023 10:23 AM EDT Pulse 75 09/19/2023 10:23 AM EDT Temperature 36.9 ??C (98.4 ??F) 09/19/2023 10:23 AM E DT Respiratory Rate - - Oxygen Saturation 96% 09/19/2023 10:23 AM EDT Inhaled Oxygen Concentration - - Weight 111 kg (244 lb 12.8 oz) 09/19/2023 10:23 AM EDT Height - - Body Mass Index 42.68 08/29/2023 2:10 PM EST documented in this encounter Progress Notes * Rodney Padilla MD - 09/19/2023 10:30 AM EDT Subjective Chart review prior to visit: HPI: Alize Gramajo is a 62 y.o. female, pmhx of coronary artery disease, hypertension, hyperlipidemia, DM2, anxiety, obstructive sleep apnea, history of heart arterial stent x4, diabetic polyneuropathy, COPD, bipolar Affective disorder in remission patient who reports for evaluation for follow up for di abetes, has been tolerating medication well. Patient also reports intermittent episodes of bloatingthat hs been present for several years, nothing makes it better, nothing makes it worse, has completed EGD/Colonscopy and emptying study, no acute findings. Allergies Allergen Reactions Codeine Phosphate Nausea And Vomiting Erythromycin Base Nausea Only Azithromycin Ibuprofen Stomach upset Lisinopril cough Nsaids (Non-Steroidal Anti-Inflammatory Drug) Nausea And Vomiting Current Outpatient Medications on File Prior to Visit Medication Sig Dispense Refill lamoTRIgine (LaMICtal) 150 mg tablet Take 150 mg by mouth Daily at Noon. simvastatin (Zocor) 10 mg tablet TAKE ONE TABLET BY MOUTH EVERY DAY 90 tablet 1 Blood-Glucose Meter,Continuous (Dexcom G7 [place]) Misc 1 Device by [facility].(Non- Drug; Combo Route) route continuous. (Patient not taking: Reported on 08/29/2023) Blood-Glucose Sensor (Dexcom G7 Sensor) Device 1 Device by [facility].(Non-Drug; Combo Route) route every10 days. (Patient not taking: Reported on 08/29/2023) 3 each 11 Lantus Solostar U-100 Insulin 100 unit/mL (3 mL) pen Inject 18 Units subcutaneously nightly. Inject2-20 units based on BG Indications: type 2 diabetes mellitus semaglutide (Ozempic) 0.25 mg or 0.5 mg (2 mg/3 mL) Pen Injector Inject 0.25 mg subcutaneously oncea week for 28 days, THEN 0.5 mg once a week. Indications: type 2 diabetes mellitus 3 mL 11 umeclidinium-vilanteroL (Anoro Ellipta) 62.5-25 mcg/actuation Disk with Device Inhale 1 Inhalation into the lungs daily. 3 each 3 inhalational spacing device (Hesham Aerosol Kinney Enhancer) Spacer 1 each by Misc.(Non-Drug; Combo Route) route as needed. (Patient not taking: Reported on 08/29/2023) 1 each 2 lamoTRIgine (LaMICtal) 25 mg tablet Take 50 mg by mouth nightly. Indications: bipolar disorder in remission sucralfate (Carafate) 100 mg/mL Suspension Take 10 mLs by mouth 4 times daily. 3726 mL 3 clopidogreL (Plavix) 75 mg tablet Take 1 tablet by mouth daily. 90 tablet 3 loratadine (Claritin) 10 mg Tablet Take 1 tablet by mouth daily. 90 tablet 3 amLODIPine (Norvasc) 5 mg tablet Take 1 tablet by mouth daily. 90 tablet 3 pantoprazole EC (Protonix) [address] tablet Take 1 tablet by mouth daily. 90 tablet 3 losartan (Cozaar) 100 mg tablet Take 1 tablet by mouth daily. 90 tablet 3 freestyle lite strips USE TO TEST THREE TIMES A DAY 300 strip 3 metoprolol succinate XL (Toprol-XL) 25 mg ER 24 hr tablet TAKE ONE TABLET BY MOUTH EVERY DAY 90 tablet 3 metFORMIN XR (Glucophage XR) 500 mg ER 24 hr tablet TAKE 2 TABLETS BY MOUTH TWICE DAILY WITH MEALS 360 tablet 3 Alcohol Swabs Pads, Medicated Apply 1 each topically daily. 100 each 3 insulin needles, disposable, 32 gauge x 5/32 Needle Inject 1 each subcutaneously daily. Indications: diabetes 100 each 11 nitroGLYcerin (Nitrostat) 0.[address] 1 tablet under the tongue See Admin Instructions. (Patient not taking: Reported on 08/29/2023) 30 tablet 5 fluticasone propionate (Flonase) 50 mcg/actuation [place], Suspension 1 spray by Each Nare route 2 times daily. 16 g 11 FreeStyle Lancets 28 gauge Misc 1 each by Other route 3 times daily. Indications: diabetes 100 each11 melatonin 10 mg Capsule Take 1 capsule by mouth nightly. LORazepam (Ativan) 0.5 mg Tablet busPIRone (Buspar) 30 mg Tablet Take 30 mg by mouth 2 times daily. FreeStyle Lite Meter Kit albuteroL (Proventil, Ventolin) (2.5 mg/3 mL) (0.083 %) Solution for Nebulization Take 3 mLs by nebulization every 4 hours as needed for Wheezing. (Patient not taking: Reported on 08/29/2023) 90 mL 1 Nebulizer Accessories Misc 1 each by Misc.(Non-Drug; Combo Route) route every 4 hours as needed (wheezing, cough, or shortness of breath). Supply per insurance preferred quantity (Patient not taking:Reported on 08/29/2023) 10 each 11 polyethylene glycoL (Miralax) 17 gram Powder in Packet Take 17 g by mouth daily. (Patient not taking: Reported on 08/29/2023) 14 each 0 traZODone (Desyrel) 100 mg Tablet Take 1 tablet by mouth nightly. 90 tablet 3 aspirin EC 81 mg Tablet, Delayed Release (E.C.) Take 81 mg by mouth daily. No current facility-administered medications on file prior to visit. Objective BP 150/78 (BP Location (NBP): Left arm, Patient Position: Sitting, BP Cuff Sizes: Large Adult (32-43 cm)) Pulse 75 Temp 36.9 ??C (98.4 ??F) (Temporal) Wt 111 kg (244 lb 12.8 oz) SpO2 96% BMI 42.68 kg/m?? General: NAD HEENT: Normocephalic, normal appearing conjunctiva Pulm: Talking in full sentences, no audible wheezing or grunting Card: Appears clinically well perfused MSK: Moving extremities at random Assessment/Plan There are no diagnoses linked to this encounter. 1) DM2 -Will continue with current treatment will complete A1c today 2) COPD -Having good response to ellipta will continue with treatment, has appointment f/u with pulm 3) bloating -Unable to rule out cause 2/2 DM, once DM is better controlled will consider treatment for SIBO 4) bipolar affective disorder -Advised to continue with care via community [facility]. Total time on date of encounter was 36 minutes including the any of the following activities as necessary for completion of the visit: Preparing to see pt, review of tests Obtaining and/or reviewing separately obtained history (eg, outside records, caregiver) Counseling and educating the patient/family/caregiver Referring and communicating with other health skin care specialist Documenting clinical information in the electronic or other health record Independently interpreting results Care coordination documented in this encounter Plan of Treatment Upcoming Encounters Date Type Department Care Team (Late st Contact Info) Description 03/20/2024 9:00 AM EDT TH Visit (TeleHealth) Sleep Center at [facility] [address] [place] [address] Denisse Hardwick, [facility] 03/20/2024 2:00 PM EDT Clinical Support Family Medicine at [facility] [address] [place] [phone] Julia Low [facility] 05/01/2024 11:20 AM EDT Appointment Mammography/[place] [address] Rodney Padilla MD [address] [facility] [place], [place] [id number] 05/01/2024 1:45 PM EDT [place] [address] Juanpablo Hernandez MD [facility] [place] [address] 01/30/2025 1:30 PM EDT Appointment Hematology [place] [address] 01/30/2025 3:[address] [place] [address] Arturo Cordero MD [facility] HEMATOLOGY [place] [address] 01/30/2025 4:15 PM EDT Office Visit [place]ology [place] [address] Arturo Cordero MD [facility] DR HEMATOLOGY AND ONCOLOGY [place], [place] [id number] documented as of this encounter Results * (ABNORMAL) Hemoglobin A1c (09/19/2023 11:24 AM EDT) Hemoglobin A1c 9.2(H) 4.3 - 5.6 % [facility] Comment: Reference Range: 4.3 - [...] Mellitus, Diabetes Care 2013; 36: Suppl. 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
--- OUTSIDE RECORDS SUMMARY | 2024-03-04 21:17 | XMS_ITS | Encounter Summary ---
Author Organization [facility] [place] [address] Care Team Providers Care Weather Clerk Name Role Phone Rodney Padilla MD Primary Care Provider [phone]- [phone] Reason for Visit * Reason Comments Melanoma Melanoma of conjunct ana luisa OS Encounter Details Date Type Department Care Team (Late st Contact Info) Description 11/29/2023 2:45 PM EDT Office [place] [address] Juanpablo Hernandez MD [facility] [place] [address] Malignant melanoma of conjunctiva, left; Type 2 diabetes mellitus without long-term current [...] place to sleep or slept in a skilled nursing (including now)? No 06/14/2021 Sex and Gender Information Value Date Recorded Sex Assigned at Not on file Gender Identity Not on file Sexual Orientation Not on file documented as of this encounter Patient Instructions * Patient Instructions* Juanpablo Hernandez MD - 11/29/2023 2:45 PM EDT Medications: Use eye medications as instructed by Dr. Hernandez during your appointment. For non eye medications not prescribed by the Ophthalmology (Eye) Clinic, please follow up with your PCP (primary care provider) for instructions. Dilation: Your eyes may have been dilated during your visit. Patients response to dilation varies and the duration of dilation can range from 4 to 24 hours. Be careful with visually demanding tasks until these effects have worn off. Driving: Wait until your vision has returned to normal baseline after your eye visit before driving. Changes in vision or eyes: Please call the eye clinic, , for any significant changes invision, new flashes or floaters or eye pain Eye safety is important: please use eye protection during any activities in which you could injury your eyes. documented in this encounter Progress Notes * Juanpablo Hernandez MD - 11/29/2023 2:45 PM EDT Images from the original note were not included. Encounter Diagnoses Name Primary? Malignant melanoma of conjunctiva, left Type 2 diabetes mellitus without long-term current use of insulin Alize Gramajo is a 63 y.o. with the following ophthalmic problems: Melanoma of conjunctiva OS s/p excision with cryo 05/14/2020 with mild keratopathy in patient with h/o renal cell carcinoma and previously history of pigmented pingueculae for more than 10 years. No personal history of melanoma, but lots of other cancer in her family, current smoker - possible positive margins, though free edge specimens negative -Completed 2 rounds (minimal side effects) and 3.25 days (red eye) qid [facility] 0.04% x 1 wk in early 2020 -No signs of recurrence. 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 Maco of pigment associated with blood vessel is stable. No new masses or pigmentation findings associated with melanoma. -Discuss sunscreen, glasses, hat and skin protection in the sun. -Continue follow ups with Dr. Arriola and dermatology 02/22/23: Mar 2020: NIDDM with A1C of 9.4: - no evidence of NPDR/PDR 07/26/23 Cataract: Good BCVA, follow, Previous KEITH - inferior punctal plug implant Current smoker but denies orthopnea, Hx of clear cell renal cell carcinoma encouraged to quit Plan: - Follow up with dermatology and heme/onc as planned - Follow up 4-5 months or as needed - Findings and concerns discussed with Alize and she expressed understanding. Upon Return EPF documented in this encounter Plan of Treatment Upcoming Encounters Date Type Department Care Team (Late st Contact Info) Description 03/20/2024 9:00 AM EDT TH Visit (TeleHealth) Sleep Center at [facility] [address] [place] [address] Denisse Hardwick, [facility] 03/20/2024 2:00 PM EDT Clinical Support Family Medicine at [facility] [address] [place] [address] Julia Low [facility] 05/01/2024 11:20 AM EDT Appointment Mammography/DXA at [place] [phone] Rodney Padilla MD [address] [place] [address] 05/01/2024 1:45 PM EDT Office Visit Ophthalmology at [address] Juanpablo Hernandez MD [facility] [place] [address] 01/30/2025 1:30 PM EDT Appointment Hematology and Oncology at [address] 01/30/2025 3:[address] Scan at [address] Arturo Cordero MD [facility] [address] [place] [address] 01/30/2025 4:15 PM EDT Office Visit Hematology and Oncology at [place] [phone] Arturo Cordero MD [facility] [place] [address] documented as of this encounter Visit Diagnoses Diagnosis Malignant melanoma of conjunctiva, left Type 2 diabetes mellitus without long-term current use of insulin documented in this encounter Care Teams Weather Clerk Relationship Specialty Start Date End Date Rodney Padilla MD [address] [place] [address] PCP - General 07/18/22 documented as of this encounter
--- OUTSIDE RECORDS SUMMARY | 2024-03-04 21:17 | XMS_ITS | Encounter Summary ---
Author Organization [facility] [address] Care Team Providers Care Retoucher Name Role Phone Rodney Padilla MD Primary Care Provider Encounter Details Date Type Department Care Team (Latest Contact Info) Description 12/20/2023 2:00 PM EDT Laboratory Appointment Lab at [facility] [address] [place] [address] Type 2 diabetes mellitus without long-term current [...] place to sleep or slept in a assisted (including now)? No 06/14/2021 Sex and Gender Information Value Date Recorded Sex Assigned at Not on file Gender Identity Not on file Sexual Orientation Not on file documented as of this encounter Plan of Treatment Upcoming Encounters Date Type Department Care Team (Late st Contact Info) Description 03/20/2024 9:00 AM EDT TH Visit (TeleHealth) Sleep Center at [facility] [address] [place] [address] Denisse Hardwick, [facility] 03/20/2024 2:00 PM EDT Clinical Support Family Medicine at [facility] [address] [place] [address] Julia Low, [facility] 05/01/2024 11:20 AM EDT Appointment Mammography/[place] [address] Rodney Padilla MD [address] [place] [place] [address] 05/01/2024 1:45 PM EDT Office [place] [address] Juanpablo Hernandez MD [facility] [place] [address] 01/30/2025 1:30 PM EDT Appointment Hematology [place] [address] 01/30/2025 3:[address] [place] [phone] Arturo Cordero MD [facility] DR HEMATOLOGY AND ONCOLOGY [place], [place] [id number] 01/30/2025 4:15 PM EDT Office Visit Hematology [place] [address] Arturo Cordero MD [facility] [address] [place] [address] documented as of this encounter Procedures Procedure Name Priority Date/Time Associated Diagnosis Comments U ALBUMIN/CRE RATIO Routine 12/20/2023 2 :28 PM EDT Type 2 diabetes mellitus without long-term current use of insulin HEMOGLOBIN A1C Routine 12/20/2023 2:14 PM EDT Type 2 diabetes mellitus without long-term current use of insulin documented in this encounter Results * U Albumin/Cre Ratio (12/20/2023 2:28 PM EDT) Albumin / Creatinin Ratio, Urine Not Calculated 0 - 29 mcg/mg Cr [facility] Comment: Reference Ranges: <30 mcg/mg: Normal [...] 2, 357? 362 Albumin, Urine <3.0 mg/L [facility] Creatinine, Urine 75 mg/dL [facility] Urine 12/20/2023 2:28 PM EDT 12/20/2023 4:11 PM EDT Narrative Resulting Agency Comment Spec In Lab Rodney Padilla MD URINE ORDERABLES Performing Organization Address City/[facility]/ZIP Co de Phone Number [facility] [place] [address] * (ABNORMAL) Hemoglobin A1c (12/20/2023 2:14 PM EDT) Hemoglobin A1c 9.4(H) 4.3 - 5.6 % [facility] Comment: Reference Range: 4.3 - 5.6% [...] Mellitus, Diabetes Care 2013; 36: Suppl. 1, W17-58 Estimated Average Glucose 222 mg/dL [facility] Blood 12/20/2023 2:14 PM EDT 12/20/2023 4:37 PM EDT Narrative Resulting Agency Comment Spec In Lab Rodney Padilla MD CHEMISTRY ORDERABLE S Performing Organization Address City/[facility] Co de Phone Number [facility] [place] [address] documented in this encounter Visit Diagnoses Diagnosis Type 2 diabetes mellitus without long-term current use of insulin documented in this encounter Care Teams Retoucher Relationship Specialty Start Date End Date Rodney Padilla MD [address] [place] [address] PCP - General 07/18/22 documented as of this encounter
--- OUTSIDE RECORDS SUMMARY | 2024-03-04 21:17 | XMS_ITS | Encounter Summary ---
Author Organization Formerly [facility] Address One [facility] [place] [address] Care Team Providers Care Patent Chemist Name Role Phone Rodney Padilla MD Primary Care Provider [phone] Reason for Visit * Reason Comments Diabetes Encounter Details Date Type Department Care Team (Late st Contact Info) Description 01/01/2024 11:00 AM EDT TH Visit (TeleHealth) Family Medicine at [facility] [address] [place] [address] Julia Low, [facility] Type 2 diabetes mellitus without long-term current [...] as of this encounter Progress Notes * Julia Low [facility] - 01/01/2024 11:00 AM EDT Images from the original note were not included. Clinical Pharmacist Consultation; Julia Low RPH Visit Type: Telehealth video followup Diabetes Mellitus (DM) & Medication Management Subjective Subjective: Patient ID: Alize Gramajo is a 63 y.o. female She is here to follow up for their type II diabetes. Length of DM [] New dx Year of diagnosis: unk earliest reports 2018 Diabetic complications: PMH notable for any of the following conditions: Yes [x] LA/Stroke/CAD [] Retinopathy [] CHF [x] Neuropathy [] CKD [x] NAFLD/BARRERA- Qt of fatty liver on CT scan from 2021 unclear if ever evaluated and ruled in/out [] History of diabetes-related amputations [] Personal history of pancreatitis [] Personal or family history of thyroid cancer Date of last eye exam: ? Date of last foot exam: ? Referring Provider/date: Rodney Padilla MD 06/14/21 Tamera Khan APRN Health Beliefs and Attitudes Feelings about having DM excited The pt is in an action stage of making changes to manage their diabetes Factors causing stress (health, money, job, social) None at this time Barriers Identified: Per Patient reports that after being sick with a virus, and a hospital admission, she has speech and cognitive problems. Medication Management Adherence tools include [x] Pillbox [] Reminder alarms [] Med List [] Other [] None Barriers to med adherence: [] Cost [x] Side Effects [] Unclear Directions [] Other: [] None # of Missed doses/week None Clinical Practice Standards: Statin:yes - simvastatin 10 mg HESHAM/ARB: yes - losartan 100 mg Aspirin: yes - asa 81 mg and clopidogrel -Uses [facility] -Prefers oral therapies to injections but willing to try injectable meds Diabetes medication regimen: Metformin XR 500 mg 2 tabs BID Lantus 18 units daily Mounjaro 2.5 mg once weekly; started 12/20/23 and has kicked herself for not starting sooner Prior diabetes therapy trials: Never started Rybelsus or Ozempic d/t fear of stomach SE/FARZAD glimepiride caused hypoglycemia in the afternoon Did not tolerate Tresiba Trulicity and ozempic stopped d/t GI intolerance Home Glucose Monitoring are performed regularly using Dexcom CGM G7 Uses [employer] testing supplies Interested in Dexcom G7, report approved by insurance. Received Dexcom G7 CGM through [employer]. Has not set up Prior Averages: 08/26/21 09/09/21 09/24/21 11/14/21 11/03/22 12/01/22 01/03/23 08/18/23 10/26/23 Daily Avg 157 168 131 138 175 153 176 211 152 eA1c 8.44850 8.46 7.20 7.44 8.7 7.95 8.75 9.96 7.92 Acute complications of diabetes: Have you had a low blood sugar reaction? If yes, how did you feel? No [] Denies [] Shaking [] Sweating [] Weakness/fatigue [] Dizziness [] Blurred vision [] Other Have you had high blood sugar? If yes, how did you feel? Unknown [] Denies [] Polydipsia [] Polyuria [] Polyphagia [] Other Lifestyle Has cut back on late night eating Eating cherries and strawberries in cool whip instead of candy Portions are smaller at supper Has been very active with gardening Walks her dog to the park daily Objective Objective: Allergies and Drug intolerance: Allergies Allergen Reactions Codeine Phosphate Nausea And Vomiting Erythromycin Base Nausea Only Azithromycin Ibuprofen Stomach upset Lisinopril cough Nsaids (Non-Steroidal Anti-Inflammatory Drug) Nausea And Vomiting Medication List: Current Outpatient Medications Medication Sig Dispense Refill tretinoin (RETIN-A) 0.025 % Cream Apply a pea size amount to the face nightly. As it can be irritating, start 2-3 times per week and slowly increase to nightly use. Can also mix with a bland moisturizer to help with irritation. 45 g 0 BD Alcohol Swabs Pads, Medicated USE TOPICALLY ONCE DAILY 100 each 3 insulin needles, disposable, 32 gauge x 5/32 Needle Inject 1 each subcutaneously daily. Indications: diabetes 100 each 11 Mounjaro 2.5 mg/0.5 mL Pen Injector Inject 2.5 mg subcutaneously once a week. Indications: type 2 diabetes mellitus (Patient not taking: Reported on 12/20/2023) 2 mL 11 nicotine (Nicoderm CQ) 21 mg/24 hr Patch 24 hr Change 1 patch on the skin daily. See package instructions 28 patch 1 nicotine polacrilex (Nicorette) 4 mg gum Take 1 each by mouth every 2 hours as needed for Smoking cessation. Nothing but water 15 min before or during use. 100 each 3 fluticasone zuygowu-ndoxtowocrqh-cjohagggas (Trelegy Ellipta) 200-62.5-25 mcg Inhale 1 puff into the lungs daily. Rinse mouth after use 1 each 11 fluticasone propionate (Flonase) 50 mcg/actuation [place], Suspension SPRAY 1 SPRAY IN EACH NOSTRIL TWO TIMES A DAY 48 mL 3 lamoTRIgine (LaMICtal) 150 mg tablet Take 150 mg by mouth Daily at Noon. simvastatin (Zocor) 10 mg tablet TAKE ONE TABLET BY MOUTH EVERY DAY 90 tablet 1 Blood-Glucose Meter,Continuous (Dexcom G7 Communications Attendant) Misc 1 Device by Mis.(Non- Drug; Combo Route) route continuous. Blood-Glucose Sensor (Dexcom G7 Sensor) Device 1 Device by Misc.(Non-Drug; Combo Route) route every10 days. 3 each 11 Lantus Solostar U-100 Insulin 100 unit/mL (3 mL) pen Inject 18 Units subcutaneously nightly. Inject2-20 units based on BG Indications: type 2 diabetes mellitus inhalational spacing device ([place]esham Aerosol [place] Enhancer) Spacer 1 each by Misc.(Non-Drug; Combo Route) route as needed. 1 each 2 lamoTRIgine (LaMICtal) 25 mg [...] TWICE DAILY WITH MEALS 360 tablet 3 FreeStyle Lancets 28 gauge Misc 1 each [...] every 4 hours as needed for Wheezing. 90 mL 1 traZODone (Desyrel) 100 mg Tablet Take 1 tablet by mouth nightly. 90 tablet 3 aspirin EC 81 mg Tablet, Delayed Release (E.C.) Take 81 mg by mouth daily. No current facility-administered medications for this visit. Most Recent Vitals: BP Readings from Last 3 Encounters: 12/20/23 130/78 10/24/23 144/69 09/19/23 150/78 BMI Readings from Last 3 Encounters: 12/20/23 42.40 kg/m?? 10/24/23 42.37 kg/m?? 09/19/23 42.68 kg/m?? Wt Readings from Last 3 Encounters: 12/20/23 110.3 kg (243 lb 3.2 oz) 10/24/23 110.2 kg (243 lb) 09/19/23 111 kg (244 lb 12.8 oz) Pertinent Lab values: Lab Results Component Value Date NA 140 08/03/2023 K 4.9 08/03/2023 CL 103 08/03/2023 CO2 27 08/03/2023 BUN 17 08/03/2023 CREATININE 0.82 08/03/2023 GLUCOSE 254 (H) 08/03/2023 GLUCFASTING 116 (H) 06/29/2019 CALCIUM 9.5 08/03/2023 ESTGFR 80 08/03/2023 Last 3 Hemoglobin A1Cs Lab Results Component Value Date HA1C 9.4 (H) 12/20/2023 HA1C 9.2 (H) 09/19/2023 HA1C 9.4 (H) 06/20/2023 Lab Results Component Value Date CHLPL 141 06/20/2023 HDL 41 06/20/2023 CHOLHDL 3.4 06/20/2023 TRIG 96 06/20/2023 LDLCHOL 81 06/20/2023 Immunization history: Immunization status: missing Shingrix Current Immunizations Name Date Covid-19 (Pfizer), Gordon Cap Bivalent 30mcg (12Yrs+) 06/07/2022 INFLUENZA 05/10/2007 Influenza Quadrivalent with Preservative 05/06/2020 Influenza Quadrivalent, Preservative Free 06/20/2023, 06/07/2022, 05/31/2021, 04/09/2019, 05/08/2015 Pneumococcal Conjugate (Prevnar 13) 04/09/2019 Pneumococcal Polysaccharide (Pneumovax 23) 05/10/2007 TD Adult 10/07/2005 Td Adult, Absorbed, Preservative Free 06/24/2011, 09/07/2005 Tdap 04/09/2019, 06/24/2011 Prescription Insurance: No value filed. Assessment and Recommendations: Diabetes Lab Results Component Value Date HA1C 9.4 (H) 12/20/2023 Clinic A1c is not at goal based on referral specified goal of <7% on diabetes regimen consistingof metformin and Lantus because pt did not start prandial coverage with Mounjaro until the day she checked her last A1c on 12/20/23. A1c has been elevated consistently since 2019 Appears adherent without SE which has really excited pt about managing her diabetes for the first time. Home glucose has significantly improved with time in range at 89%. Will continue current therapy with no changes until A1c is repeated in March IF pt continues to do well on Mounjaro in March, then can consider dose adjustment ot potentially eliminate insulin per pt's interest Blood Pressure BP Readings from Last 3 Encounters: 12/20/23 130/78 10/24/23 144/69 09/19/23 150/78 Clinic BP is well controlled with antihypertensive regimen consisting of losartan, metoprolol, and amlodipine Cholesterol: Lipid Panel Lab Results Component Value Date CHLPL 141 06/20/2023 HDL 41 06/20/2023 CHOLHDL 3.4 06/20/2023 TRIG 96 06/20/2023 LDLCHOL 81 06/20/2023 The 10-year ASCVD risk score (Jose Alberto BRADLEY, et al., 2019) is: 22.1% Values used to calculate the score: Age: 63 years Sex: Female Is Non- : No Diabetic: Yes Tobacco smoker: Yes Systolic Blood Pressure: 130 mmHg Is BP treated: Yes HDL Cholesterol: 41 mg/dL Total Cholesterol: 141 mg/dL Patient's LDL is currently at goal per most recent labs. She is currently prescribed simvastatin. Plan: Treatment changes: Diabetes Medication Regimen at conclusion of 01/01/24 encounter: Metformin XR 500 mg 2 tabs BID Lantus 18 units daily Mounjaro 2.5 mg once weekly There are no diagnoses linked to this encounter. Efforts to improve adherence to therapy plan (if necessary) will be directed at: Congratulate don using and Encouraged to continue CGM. Will review data in detail at clinic followup Congratulated and encouraged switching to fruits instead of candy intake at night Follow up in 3 months to review Dexcom data and repeat A1c Pt verbalized agreement and understanding of plan with no further questions at this time. Pt understands IF NO CPA ON FILE no changes to current drug regimen were made at the appointment and that his providing recommendations for provider review and follow up. Julia Low, [facility] 01/01/24 Total time spent: 45 minutes documented in this encounter Plan of Treatment Upcoming Encounters Date Type Department Care Team (Late st Contact Info) Description 03/20/2024 9:00 AM EDT TH Visit (TeleHealth) Sleep Center at [facility] [address] [place] [phone] Denisse Hardwick [facility] 03/20/2024 2:00 PM EDT Clinical Support Family Medicine [facility] [address] [place] [address] Julia Low [facility] 05/01/2024 11:20 AM EDT Appointment Mammography/[place] [phone] Rodney Padilla MD [address] [place] [address] 05/01/2024 1:45 PM EDT Office [place] [address] Juanpablo Hernandez MD [facility] [place] [address] 01/30/2025 1:30 PM EDT Appointment Hematology [place] [address] 01/30/2025 3:[address] [place] [address] Arturo Cordero MD [facility] HEMATOLOGY AND ONCOLOGY [place], [place] [id number] 01/30/2025 4:15 PM EDT Office Visit Hematology [place] [address] Arturo Cordero MD [facility] [address] [place] [address] documented as of this encounter Visit Diagnoses Diagnosis Type 2 diabetes mellitus without long-term current use of insulin documented in this encounter Care Teams Patent Chemist Relationship Specialty Start Date End Date Rodney Padilla MD [address] [place] [address] PCP - General 07/18/22 documented as of this encounter
--- OUTSIDE RECORDS SUMMARY | 2024-03-04 21:17 | XMS_ITS ---
Author Organization [facility] [place] [address] Care Team Providers Care Emergency Medicine Name Role Phone Rodney Padilla MD Primary Care Provider [phone] Active Problems Problem Noted Date Diagnosed Date [...] 07/2018 Overview (08/01/2019): 2018 Normal Pap, HPV [place] Worker eConsult 2019: She should have pap/HPV [...] in remission 05/10/20 Overview (05/10/2019): Diagnosis in [facility] records, unconfirmed Anxiety 05/09/2019 Type 2 diabetes mellitus wit hout long-term current use of insulin 04/11/2019 TITO (obstructive sleep apnea) 04/09/2019 Overview (11/06/2019): PSG 03/05/10 @ 271 lbs: AHI of 27, CMS AHI of 16, min saturation of 61%, [...] that hospitalization.. Coronary artery disease invo lving [place] coronary artery of [place] heart with angina pectoris 10/09/2007 Overview (06/27/2019): [...] LV segmental WMAs are no longer present. Current Oncology Plans No current plan information found. Past Plans No past plan information found. Radiation Treatments * No radiation treatments are documented [facility]. Treatments may have been administered in another system. Lifetime Dose Tracking * Chemical Lifetime Dose Automatic Entry Manual Entr y DLP (Dose Length Product) 4,714 mGy-cm 4,714 mGy-cm 0 mGy-cm CTDI (CT Dose Index) Min 50.06 mGy 50.06 mGy 0 m Gy CTDI (CT Dose Index) Max 65.02 mGy 65.02 mGy 0 m Gy Resolved Problems Problem Noted Date Diagnosed Date Resolved Date COPD 05/10/2019 12/20/2023
--- OUTSIDE RECORDS SUMMARY | 2024-03-04 21:17 | XMS_ITS | Encounter Summary ---
Author Organization [facility] [place] [address] Care Team Providers Care Litigation Legal Secretary Name Role Phone Rodney Padilla MD Primary Care Provider [phone] Reason for Visit * Reason Comments Medication Refill Encounter Details Date Type Department Care Team (Late st Contact Info) Description 09/25/2023 Refill Family Medicine at [facility] [address] [place] [address] Rodney Padilla MD [address] [facility] [place] [address] Social History Tobacco Use Types Packs/Day Years [...] place to sleep or slept in a long-term (including now)? No 06/14/2021 Sex and Gender Information Value Date Recorded Sex Assigned at Not on file Gender Identity Not on file Sexual Orientation Not on file documented as of this encounter Miscellaneous Notes * Telephone Encounter - Yaritza Rangel CMA - 09/28/2023 9:57 AM EDT Prescription Renewal Request Name: Alize Gramajo : 1960 Prescription(s) Requested: Requested Prescriptions Pending Prescriptions Disp Refills fluticasone propionate (Flonase) 50 mcg/actuation [place], Suspension [Pharmacy Med Name: FLUTICASONEPROP 50 MCG SPRAY] 16 mL 11 Sig: SPRAY 1 SPRAY IN EACH NOSTRIL TWO TIMES A DAY Date of Encounter last in This Dept (If need an appointment send to secretaries to schedule): 09/19/23 Next Encounter in This Dept: 10/27/2023 Date of Last Refill (for each medication): 09/26/22 16g/11 Medication category requirements (labs etc): n/a Status of request: Pended Allergies Allergen Reactions Codeine Phosphate Nausea And Vomiting Erythromycin Base Nausea Only Azithromycin Ibuprofen Stomach upset Lisinopril cough Nsaids (Non-Steroidal Anti-Inflammatory Drug) Nausea And Vomiting Yaritza Rangel CMA 09/28/23 9:57 AM documented in this encounter Plan of Treatment Upcoming Encounters Date Type Department Care Team (Late st Contact Info) Description 03/20/2024 9:00 AM EDT TH Visit (TeleHealth) Sleep Center at [facility] [address] [place] [phone] Denisse Hardwick, [facility] 03/20/2024 2:00 PM EDT Clinical Support Family Medicine at [facility] [address] [place] [phone] Julia Low, [facility] 05/01/2024 11:20 AM EDT Appointment Mammography/[place] [address] Rodney Padilla MD [address] [place] [address] 05/01/2024 1:45 PM EDT Office [place] [address] Juanpablo Hernandez MD [facility] [place] [address] 01/30/2025 1:30 PM EDT Appointment Hematology [place] [address] 01/30/2025 3:[address] [place] [address] Arturo Cordero MD [facility] HEMATOLOGY AND ONCOLOGY [place], [place] [id number] 01/30/2025 4:15 PM EDT Office Visit [place]ology [place] [address] Arturo Cordero MD [facility] DR HEMATOLOGY [place] [address] documented as of this encounter Visit Diagnoses Not on filedocumented in this encounter Care Teams Litigation Legal Secretary Relationship Specialty Start Date End Date Rodney Padilla MD [address] [place] [address] PCP - General 07/18/22 documented as of this encounter
--- OUTSIDE RECORDS SUMMARY | 2024-03-04 21:17 | XMS_ITS | Encounter Summary ---
Author Organization [facility] Address [facility] [place] [place] [address] Care Team Providers Care Sales Account Leader Name Role Phone Rodney Padilla MD Primary Care Provider [phone] Encounter Details Date Type Department Care Team (Latest Contact Info) Description 02/01/2024 Travel Social History Tobacco Use Types Packs/Day [...] place to sleep or slept in a longterm (including now)? No 06/14/2021 Sex and Gender Information Value Date Recorded Sex Assigned at Not on file Gender Identity Not on file Sexual Orientation Not on file documented as of this encounter Plan of Treatment Upcoming Encounters Date Type Department Care Team (Late st Contact Info) Description 03/20/2024 9:00 AM EDT TH Visit (TeleHealth) Sleep Center at [facility] [address] [place] [phone] Deinsse Hardwick, [facility] 03/20/2024 2:00 PM EDT Clinical Support Family Medicine at [facility] [address] [place] [address] Julia Low, [facility] 05/01/2024 11:20 AM EDT Appointment Mammography/[place] [address] Rodney Padilla MD [address] [place] [address] 05/01/2024 1:45 PM EDT Office [place] [address] Juanpablo Hernandez MD [facility] [address] 01/30/2025 1:30 PM EDT Appointment Hematology [place] [address] 01/30/2025 3:[address] [place] [address] Arturo Cordero MD [facility] [address] [place] [address] 01/30/2025 4:15 PM EDT Office Visit Hematology [place] [address] Arturo Cordero MD [facility] DR [place] [address] documented as of this encounter Visit Diagnoses Not on filedocumented in this encounter Care Teams Sales Account Leader Relationship Specialty Start Date End Date Rodney Padilla MD [address] [place] [place] [address] PCP - General 07/18/22 documented as of this encounter
--- OUTSIDE RECORDS SUMMARY | 2024-03-04 21:17 | XMS_ITS | Encounter Summary ---
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 Name Role Phone Rodney Padilla MD Primary Care Provider [phone] Reason for Visit * Consultation (Routine) - Closed Specialty Diagnoses / Procedures Referred By Gonzalez kumari Referred To Contact Pulmonology Diagnoses Interstitial lung disease Rodney Padilla MD [address] [place] [place] [address] [facility] [address] [place] [id number] Referral ID Status Reason Start Date Expiration Date V isits Requested Visits Authorized [id number] Closed Consult, Test & Treat 08/21/2023 08/20/2024 1 1 Encounter Details Date Type Department Care Team (Late st Contact Info) Description 10/24/2023 11:00 AM EDT [place] [address] Jonathan Boswell MD [facility] [place] [address] Nicotine dependence, cigarettes, uncomplicated; Wheeze; Chronic cough; Abnormal PFT; Chronic obstructive pulmonary disease, unspecified COPD type; Chronic heart failure with preserved ejection fraction; Post-nasal drip; Class 3 severe obesity with body mass index (BMI) of 40.0 to 44.9 in adult, unspecified obesity type, unspecified whether serious comorbidity present Social History Tobacco Use Types Packs/Day Years [...] place to sleep or slept in a correction (including now)? No 06/14/2021 Sex and Gender Information Value Date Recorded Sex Assigned at Not on file Gender Identity Not on file Sexual Orientation Not on file documented as of this encounter Last Filed Vital Signs Vital Sign Reading Time Taken Comments Blood Pressure 144/69 10/24/2023 10:56 AM EDT Pulse 70 10/24/2023 10:56 AM EDT Temperature 36.3 ??C (97.3 ??F) 10/24/2023 10:56 AM E DT Respiratory Rate 20 10/24/2023 10:56 AM EDT Oxygen Saturation 96% 10/24/2023 10:56 AM EDT Inhaled Oxygen Concentration - - Weight 110.2 kg (243 lb) 10/24/2023 10:56 AM EDT Height 161.3 cm (5' 3.5) 10/24/2023 10:56 AM ED T Body Mass Index 42.37 10/24/2023 10:56 AM EDT documented in this encounter Patient Instructions * Patient Instructions* Jonathan Boswell MD - 10/24/2023 11:00 AM EDT Images from the original note were not included. It was a pleasure seeing you today. Here is a brief reminder of what we discussed: In reviewing your breathing tests, you do not technically meet the diagnosis of COPD. However, thiscould be impacted by other things like your wait. I think its possible you have components of both asthma and COPD. If you are able to smoke less and try to avoid some of the things you know bother your breathing, I think you may feel much better from a breathing standpoint. I'd like to see if adding an inhaled steroid to your controller inhaler will help so you can swtichfrom Anoro to a medication called Trelegy which is used the same way and looks the same. If this isnot affordable, you could stay with Anoro for the time being and we can look into other options. Try using the albuterol with a spacer prior to using your controller inhaler in the morning to see if it may have more of an effect. We talked about many ways to help you to cut down and then quit smoking. Let's start with nicotine patches and gum and have you call the [employer] line for additional assistance. They may also be ableto help with access to nicotine patches and gum in case its not covered at an affordable roger by your insurance. The CT scan of your lungs does not show any concerning nodules, emphysema, or scarring which is diamante news. Summary of the plan going forward: Switch from Anoro to Trelegy daily. If this is not affordable, let me know and you can continue Anoro for now. These medications are used the same way. You can try using your albuterol inhaler beforeyour Trelegy in the morning. Remember the technique we discussed and see instructions below. Use a spacer with your albuterol inhaler like we discussed Call 802QUITS to see if their resources are helpful for you to cut down and eventually quit smoking Keep taking the Loratadine and nasal spray for your allergies, but remember to change how you use the nasal spray like we discussed. I have put a reminder for you to review below. Start using the nicotine patch daily and the gum as much as you need. But remember that you chew till its soft and then partk it between you gum and your cheek rather than chewing constant. I'd like to see you back in about 4 months to see how you are doing. Please do not hesitate to get in touch with my office with any questions or if new issues should arise before our next scheduled visit. You can reach me by phone ([phone]) or by sending a [employer] message. Best, Jonathan Boswell MD Tips for Optimal Use of Nasal [place] Medication It is incredibly common for people to use their nasal sprays improperly (myself included, for many years!). This is likely because we often do not provide adequate instructions. Here are some tips about how to get the most benefit and to reduce the risk of side effects such asnosebleeds. Use your RIGHT hand to spray your LEFT nostril and your LEFT hand to spray your RIGHT nostril. Thiswill help you to aim the spray in the proper direction instead of having all the medicine hit the septum which lies between your nasal passages (which is not where you need the medicine to go!) For your LEFT NOSTRIL - tip your head down a bit and use your left hand to gently pull your nostrilaway (watch video for help understanding). With your right hand, insert the tip of the sprayer into your Left nostril and aim posteriorly as if you were going to aim towards the top of your Left ear. [place] the medication. But DO NOT forcefully sniff in while you are spraying the medication - this will pull all the medicine past your sinuses and right into the back of your throat and your mouth (you may have noticed you can taste the medicine). Instead, just simply spray. If you feel some of themedicine starting to drip out you can gently sniff the medicine back in. Repeat steps 2-4 for you RIGHT nostril - pull nostril with RIGHT hand and spray with LEFT hand. Watching this video below may help to make this all more clear. Around the one minute stephanie he starts to go through the procedure. www.[employer].com/watch?v=ydZmh1BXOPU&t=69s Tobacco Treatment: Nicotine Replacement Instructions Nicotine patch instructions: Place the patch on your skin in an area that has a minimal amount of hair, typically between the neck and waist or upper arms. Avoid placing it over scars or tattoos. Change the place where you put it on your skin daily. Remove the patch each morning and replace with a new patch. Fold the patch in half, with the sticky sides in and dispose of it safely, keeping it out of reach of children and pets. Some patients experience nightmares or bad dreams on the patch. If this happens you should removethe patch at bedtime and replace it each morning. The nicotine patch releases a constant amount of nicotine in the body. The nicotine dissolves rightthrough the skin and enters the body. Less nicotine is obtained through the patch than in cigarettes. The patch does NOT contain all the tars and poisonous gases that are found in cigarettes. Side effects from wearing the patch can include: headaches, dizziness, upset stomach, weakness, blurred vision, vivid dreams, mild itching and burning on the skin, and diarrhea. Wearing the nicotine patch decreases the chances of suffering from several of the major smoking withdrawal symptoms such as tenseness, irritability, drowsiness and lack of concentration. The nicotine patch may be worn whether you are still smoking or have quit. If you are unsure about quitting now the nicotine patch may be used while you are smoking to help you reduce your cigarettes. This approach can prepare you for quitting in the future. There are no significant risks associated with the use of Nicotine Replacement Therapy products forlonger than the labeled number of weeks of use. The nicotine patch can be combined with other Nicotine Replacement Therapy products such as nicotine gum or lozenges. Ask your healthcare provider about combination therapy to increase your chances of successfully quitting tobacco for good. If you are still having strong cravings to smoke or are struggling to quit completely while using the nicotine patch talk with your healthcare provider for additional help. Nicotine gum instructions: Nicotine gum must be used properly in order to be effective. Nicotine from Nicotine gum is absorbedthrough the mucous membranes in your mouth at a certain acidity or pH level. Therefore, do not eat or drink anything but water for 15 minutes prior to or during use. It should be chewed until a peppery sensation is felt in the mouth and then parked between the cheek and gum until that sensation is gone, then begin chewing again until the peppery feeling comes back again, parking and chewing as described until all of the peppery sensation has gone from the gum. This may take 20-30 minutes. Try to not swallow the saliva or it may cause an upset stomach. The gum is to be disposed of carefully inthe trash where no pets or young children could get ahold of it, as there is always a small amount of nicotine left in the remains of the gum and could sicken a child or pet. The Nicotine gum comes in two strengths, 2 mg and 4 mg. You should use the 2 mg gum if you smoke your first cigarette more than 30 minutes after waking. You should use the 4 mg gum if you smoke your first cigarette less than 30 minutes after waking. Chew enough Nicotine gum to reduce withdrawal symptoms, usually starting by chewing a piece of gum every 1-2 hours for the first few days after quitting. Common side effects from Nicotine gum include mouth soreness, hiccups, upset stomach, jaw ache. These usually do not last long and can be reduced or eliminated by correct use of the gum. Nicotine gum can be combined with Nicotine patches for increased chances of successfully quitting tobacco for good! Nicotine gum may be used while you are still smoking to control cravings and help you reduce your cigarettes. This approach may help you prepare for quitting in the future. No significant risks are associated with the use of Nicotine Replacement Therapy products for longer than the labeled number of weeks of use. Maximum dosage is 20 pieces of Nicotine gum/24 hours. documented in this encounter Progress Notes * Jonathan Boswell MD - 10/24/2023 11:00 AM EDT Images from the original note were not included. [facility] Outpatient Consultation - Initial Visit Date of Encounter: 10/24/2023 Referring Provider: Rodney Padilla MD [address] [place] [address] PCP: Rodney Padilla MD Reason for Evaluation: ILD This was a [id number] office visit. History of Present Illness: Alize Gramajo is a 62 y.o. with a history of CAD s/p PCI x4, T2DM, TITO, obesity, severe left atrial enlargement on echocardiogram who is referred for initial evaluation of possible ILD. Records Review: -CT in August with no suggestion of ILD or other lung disease; historical images same -Spirometry 08/18/23 with reduced FEV1 and FVC with normal ratio - more suggestive of restriction, possibly from obesity noting BMI 43 -TTE 06/27/19 with normal biventricular fucntion, LV diastolic dysfunction and severe LAE Today: Alize recalls being told that she had asthma many years ago. Other times it has been suggested that she has COPD. She has smoked about 1 pack/day since her teenage years. We discussed that she had PFTs back in 2009 which did not demonstrate clear obstructive disease and therefore was not necessarily consistent with COPD. She does report having intermittent periods of wheezing and coughing. Exposure to wood smoke and strong perfumes can often lead to this. She also clearly feels worse when shehas a viral infection which she gets about once per year. She often feels she contracted these fromone of her grandchildren. Outside of these clear triggers she does not have consistent wheezing. She previously was taking Symbicort and then changed to Anoro by her PCP and has found this to be morehelpful. She has clear environmental allergies with fluctuation of her symptoms at different times of year. She does take Flonase and loratadine. She believes she has been on prednisone roughly 1-2 ti mes per year typically though more often in this past year when she had a viral infection and a prolonged recovery period. There was a point in time in the past when she had a respiratory illness andremariannls being prescribed 80 mg of prednisone and levofloxacin and then sounds to have had a manic or perhaps steroid-induced psychosis episode. She has not had this again. She does note that she has some cognitive difficulties since that time that have been evaluated without a clear explanation. She uses an albuterol inhaler though not regularly and only uses the nebulizer when she is sick. She feels she has active postnasal drip right now which contributes to some coughing. She has never consistently tried using nicotine replacement therapy. She is worried about her ability to quit smoking due to the duration of time she has been smoking as well as baseline anxiety and ongoing life stressors with moving to an apartment from her previous home etc. She is currently on disability. 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 She enjoys gardening, renae in particular. Repeat PFTs in August again showed a preserved FEV1/FVC ratio with reduced FEV1 and FVC which might be consistent with obstruction or restriction depending on lung volume measurement. Regarding thequestion of interstitial lung disease, a CT scan in the recent past as well as historically has shown no suggestion of ILD. Pulmonary Medications: Anoro daily Oral antihistamine Flonase Albuterol HFA - rare Albuterol neb - only when acutely ill Review of Systems: Denies fevers, chills, nausea, vomiting, diarrhea, abdominal pain, eye pain, mouth ulcers, joint pain, leg swelling, and rashes. The remainder of a 12-point ROS was negative unlessotherwise stated in the HPI. Respiratory symptoms as per HPI. Past Medical and Surgical History: Past Medical History: Diagnosis Date Allergy Antiplatelet or antithrombotic long-term use aspirin, plavix Arthritis Asthma uses inhalerswith good effect Atherosclerosis of [place] coronary artery of [place] heart with angina pectoris 10/09/2007 History of angina status post myocardial infarction October 2007 with stenting x4 CAD (coronary artery disease) October 12, 2007 COPD (chronic obstructive pulmonary disease) CPAP (continuous positive airway pressure) dependence Depression Diabetes this week around 120 Diabetes mellitus borderline Dry mouth Heart valve disease Mumur High blood pressure controlled with medication Hypercholesterolemia Hypertension Malignant neoplasm of kidney 01/13/2020 Mental health problem Depression, anxiety Mental status change Motion sickness sometimes- boating Myocardial infarction years ago, transferred to for stents Obesity Obstructive sleep apnea TITO (obstructive sleep apnea) Polyneuropathy Post-operative nausea and vomiting I think it's from the pain medication Past Surgical History: Procedure Laterality Date SECTION CORONARY ANGIOPLASTY WITH STENT PLACEMENT Placed at CRYOPEXY Left MEZ, Melanoma of conjunctiva OS s/p excision with cryo 05/14/2020 KNEE SURGERY LASER SURGERY PRO DESTR CORNEAL LESN,CRYO,PHOTO,THERM Left 05/14/2020 DESTRUCTION OF LESION OF CORNEA BY CRYOTHERAPHY (WRVU 3.47) performed by Juanpablo Hernandez MD at [facility] OSC PRO EXCIS CORNEA LESN Left 05/14/2020 EXCISION OF LESION, CORNEA, EXCEPT PTERYGIUM (WRVU 7.5) performed by Juanpablo Hernandez MD at [facility] OSC PRO LAP, PARTIAL NEPHRECTOMY Left 06/28/2019 LAPAROSCOPY, PARTIAL NEPHRECTOMY, ROBOTIC ASSIST (WRVU 27.41) performed by Avila Medina MD at [facility] MAIN OR PRO PLACE AMNIOTIC MEMBRANE OCULAR SURFACE;SINGLE LAYER SUTURED Left 05/14/2020 PLACEMENT OF AMNIOTIC MEMBRANE ON THE OCULAR SURFACE,SINGLE LAYER,SUTURED (WRVU 2.5) performed by Juanpablo Hernandez MD at [facility] OSC Family History: Family History Problem (# of Occurrences) Relation (Name,Age of Onset) Cancer (2) Maternal Half-Brother: kidney vs pancreatic primary, Paternal Aunt: Unknown primary Breast Cancer (1) Maternal Aunt Heart Disease (1) Father Kidney Cancer (2) Maternal Grandmother (56), Maternal Aunt Uterine Cancer (1) Mother (76): hysterectomy age 76 Brain Cancer (1) Paternal Aunt Medical History Unknown (1) Other Bladder Cancer (1) Maternal Grandmother (56) Negative family history of: Glaucoma, Macular Degeneration, Retinal Detachment Social and Occupational History: Smoking history: Current 1ppd since teenage years On disability. . Moved from prior home to an apartment and finds the loss of privary and control challenging. Previously was a phlebotomy director for many years. Current Medications Current Outpatient Medications: fluticasone propionate (Flonase) 50 mcg/actuation [place], Suspension, SPRAY 1 SPRAY IN EACH NOSTRIL TWO TIMES A DAY, Disp: 48 mL, Rfl: 3 lamoTRIgine (LaMICtal) 150 mg tablet, Take 150 mg by mouth Daily at Noon., Disp: , Rfl: simvastatin (Zocor) 10 mg tablet, TAKE ONE TABLET BY MOUTH EVERY DAY, Disp: 90 tablet, Rfl: 1 Blood-Glucose Meter,Continuous (Dexcom G7 Industrial Maintenance Repairer) Misc, 1 Device by Misc.(Non- Drug; Combo Route) route continuous., Disp: , Rfl: Blood-Glucose Sensor (Dexcom G7 Sensor) Device, 1 Device by Misc.(Non-Drug; Combo Route) route every 10 days., Disp: 3 each, Rfl: 11 Lantus Solostar U-100 Insulin 100 unit/mL (3 mL) pen, Inject 18 Units subcutaneously nightly. Inject 2-20 units based on BG Indications: type 2 diabetes mellitus, Disp: , Rfl: semaglutide (Ozempic) 0.25 mg or 0.5 mg (2 mg/3 mL) Pen Injector, Inject 0.25 mg subcutaneously once a week for 28 days, THEN 0.5 mg once a week. Indications: type 2 diabetes mellitus, Disp: 3 mL, Rfl: 11 umeclidinium-vilanteroL (Anoro Ellipta) 62.5-25 mcg/actuation Disk with Device, Inhale 1 Inhalationinto the lungs daily., Disp: 3 each, Rfl: 3 lamoTRIgine (LaMICtal) 25 mg tablet, Take 50 mg by mouth nightly. Indications: bipolar disorder in remission, Disp: , Rfl: sucralfate (Carafate) 100 mg/mL Suspension, Take 10 mLs by mouth 4 times daily., Disp: 3726 mL, Rfl: 3 clopidogreL (Plavix) 75 mg tablet, Take 1 tablet by mouth daily., Disp: 90 tablet, Rfl: 3 loratadine (Claritin) 10 mg Tablet, Take 1 tablet by mouth daily., Disp: 90 tablet, Rfl: 3 amLODIPine (Norvasc) 5 mg tablet, Take 1 tablet by mouth daily., Disp: 90 tablet, Rfl: 3 pantoprazole EC (Protonix) [address] tablet, Take 1 tablet by mouth daily., Disp: 90 tablet, Rfl: 3 losartan (Cozaar) 100 mg tablet, Take 1 tablet by mouth daily., Disp: 90 tablet, Rfl: 3 freestyle lite strips, USE TO TEST THREE TIMES A DAY, Disp: 300 strip, Rfl: 3 metoprolol succinate XL (Toprol-XL) 25 mg ER 24 hr tablet, TAKE ONE TABLET BY MOUTH EVERY DAY, Disp: 90 tablet, Rfl: 3 metFORMIN XR (Glucophage XR) 500 mg ER 24 hr tablet, TAKE 2 TABLETS BY MOUTH TWICE DAILY WITH MEALS, Disp: 360 tablet, Rfl: 3 Alcohol Swabs Pads, Medicated, Apply 1 each topically daily., Disp: 100 each, Rfl: 3 insulin needles, disposable, 32 gauge x 5/32 Needle, Inject 1 each subcutaneously daily. Indications: diabetes, Disp: 100 each, Rfl: 11 FreeStyle Lancets 28 gauge Misc, 1 each by Other route 3 times daily. Indications: diabetes, Disp: 100 each, Rfl: 11 melatonin 10 mg Capsule, Take 1 capsule by mouth nightly., Disp: , Rfl: LORazepam (Ativan) 0.5 mg Tablet, , Disp: , Rfl: busPIRone (Buspar) 30 mg Tablet, Take 30 mg by mouth 2 times daily., Disp: , Rfl: FreeStyle Lite Meter Kit, , Disp: , Rfl: traZODone (Desyrel) 100 mg Tablet, Take 1 tablet by mouth nightly., Disp: 90 tablet, Rfl: 3 aspirin EC 81 mg Tablet, Delayed Release (E.C.), Take 81 mg by mouth daily., Disp: , Rfl: inhalational spacing device ([employer]ham Aerosol [place] Enhancer) Spacer, 1 each by Misc.(Non-Drug; Combo Route) route as needed. (Patient not taking: Reported on 08/29/2023), Disp: 1 each, Rfl: 2 albuteroL (Proventil, Ventolin) (2.5 mg/3 mL) (0.083 %) Solution for Nebulization, Take 3 mLs by nebulization every 4 hours as needed for Wheezing. (Patient not taking: Reported on 08/29/2023), Disp: 90 mL, Rfl: 1 Allergies: Allergies Allergen Reactions Codeine Phosphate Nausea And Vomiting Erythromycin Base Nausea Only Azithromycin Ibuprofen Stomach upset Lisinopril cough Nsaids (Non-Steroidal Anti-Inflammatory Drug) Nausea And Vomiting Physical Examination: BP 144/69 Pulse 70 Temp 36.3 ??C (97.3 ??F) (Temporal) Resp 20 Ht 161.3 cm (5' 3.5) Wt 110.2 kg (243 lb) SpO2 96% BMI 42.37 kg/m?? General: NAD HEENT: No pharyngeal erythema or exudates, no thrush, no scleral icterus Cardiovascular: Regular rate, normal S1 and S2, no murmurs or extra heart sounds, 2+ radial pulses B/L Respiratory: No increased work of breathing, good air movement throughout, no wheezes or crackles, normal breath sounds during forced exhalation Abdomen: Soft, non-tender, non-distended Extremities: No lower extremity edema, no clubbing Neurologic: Alert, oriented, and communicative. No facial asymmetry or dysarthria. Symmetric gaze. Ambulatory. Pertinent Diagnostics - I personally reviewed the following with my comments included below: Labs: 08/03/23 -WBC 8.9, Hgb 13, PLT 389 -HCO3 27, Cr 0.82 01/31/20 -DEANNA neg, RF neg Chest Imaging: CT C/A/P wo 08/03/23 - no reticulation or suggestion of ILD, normal parenchyma and airways, small amount of L posterior pleural thickening, per radioogy dec from 01/06/23, no effusion Pulmonary Function Tests: Date FVC FVC % FEV1 FEV1 % FEV1/VC TLC TLC % DLCO DLCO% Comments 08/18/23 2.15 74 1.54 67 72 11.4 60 BMI 43 12/09/09 2.61 74 2.05 74 78 17.02 71 Interpretation of most recent PFTs: Moderate respiratory impairment. Lung volumes needed to distinguish obstruction and restriction. Mild diffusion impairment. TTE 06/27/19 -LV normal size and function. Mild concentric LVH. No regional wall motion abnormalities. Abnormal diastolic function. RV normal size and function. Left atrium severely dilated. Right atrium normal. No significant valvular disease. Diagnoses Nicotine dependence, cigarettes Chronic airways disease Obesity Environmental allergies Post-nasal drip HFpEF Impression: PFT from 2009 and again recently show normal ratio with reduced FEV1 and FVC. This could be due to obstruction or restriction noting BMI of 43. That said, she does sound to have bronchial hyperreactivity with response to wood smoke, URI, environmental allergies. Lung volumes will add to this assessment, while at present she technically does not meet diagnostic criteria for COPD. She may have a component of asthma and COPD overlap. The main difference being the therapeutic utility of ICS. However, with a few courses of prednisone per year, I think adding an ICS for possible COPD is appropriateand would be most important in context of asthma. We spent 10 minutes discussing smoking cessation strategies and she is open to NRT and counseling. With her mental health issues and current medications, I think better to avoid additional pharmacotherapy. She has regular CT imaging based on prior cancer diagnosis and there is no emphysema, no suggestion of ILD, and no concerns for lung cancer based on most recent imaging. Environmental allergies impact her symptoms and we discussed revising nasal spray technique which hopefully will enhance benefits. We spent 10 minutes today discussing the patient's nicotine dependence; negative health effects; and a plan for quitting and support. Follow up will be arranged to check progress. Recommendations: -Switch from Anoro to Trelegy Ellipta. Reviewed technique -Try using albuterol HFA with spacer prior to Trelegy. Otherwise PRN -Start 21 mg nicotine patch and 4mg nicotine gum. Advised to call [id number] which she plans to do -Revise nasal spray technique and continue intranasal fluticasone -Continue OTC antihistamine -She is achieving lung cancer screening with her current longitudinal imaging plan for prior cancerdiagnoses to my understanding -If needing corticosteroids in setting of obstructive lung disease exacerbation, reasonable to use Prednisone 40mg/day x 5d -Repeat PFT with lung volumes and desat test at follow up -Follow up in clinic in 4-5 months. Call sooner should new questions or concerning symptoms arise. I spent 65 minutes on this encounter on 10/24/2023 including [id number]-[id number] time, counseling, managingmedications, reviewing records, interpreting data, and documenting as detailed in my note above. Jonathan Boswell MD [facility] Roving Or Yarn Color Checkerclaims adjuster supervisor Pulmonary [place] [address] [email or web address] documented in this encounter Plan of Treatment Upcoming Encounters Date Type Department Care Team (Late st Contact Info) Description 03/20/2024 9:00 AM EDT TH Visit (TeleHealth) Sleep Center at [facility] [address] [place] [address] Denisse Hardwick [facility] 03/20/2024 2:00 PM EDT Clinical Support Family Medicine at [facility] [address] [place] [address] Julia Low [facility] 05/01/2024 11:20 AM EDT Appointment Mammography/[place] [phone] Rodney Padilla MD [address] [facility] [place] [id number] 05/01/2024 1:45 PM EDT Office Visit Ophthalmology at [place] [phone] Juanpablo Hernandez MD [facility] [place] [place] [address] 01/30/2025 1:30 PM EDT Appointment Hematology and Oncology at [place] [address] 01/30/2025 3:[address] [place] [address] Arturo Cordero MD [facility] DR HEMATOLOGY [place] [address] 01/30/2025 4:15 PM EDT Office Visit Hematology [place] [address] Arturo Cordero MD [facility] [place] [address] Scheduled Orders Name Type Priority Associated Diagnoses Orde r Schedule Common Pulmonary Function Test PFT Routine Wheeze Chronic cough Abnormal PFT Expected: 02/21/2024, Expires: 08/22/2024 documented as of this encounter Visit Diagnoses Diagnosis Nicotine dependence, cigarettes, uncomplicated Wheeze Wheezing Chronic cough Cough Abnormal PFT Nonspecific abnormal results of pulmonary system function study Chronic obstructive pulmonary disease, unspecified COPD type Chronic heart failure with preserved ejection fraction Post-nasal drip Postnasal drip Class 3 severe obesity with body mass index (BMI) of 40.0 to 44.9 in adult, unspecified obesity type, unspecified whether serious comorbidity present documented in this encounter Care Teams Dinkey Engine Firer/Fireman Relationship Specialty Start Date End Date Rodney Padilla MD [address] [place] [address] PCP - General 07/18/22 documented as of this encounter
--- OUTSIDE RECORDS SUMMARY | 2024-03-04 21:17 | XMS_ITS | Encounter Summary ---
Author Organization [facility] Address [facility]atherine [place] [address] Care Team Providers Care Garbage Pick Up Worker Name Role Phone Rodney Padilla MD Primary Care Provider [phone] Encounter Details Date Type Department Care Team (Latest Contact Info) Description 10/23/2023 Travel Social History Tobacco Use Types Packs/Day [...] place to sleep or slept in a group home (including now)? No 06/14/2021 Sex and Gender Information Value Date Recorded Sex Assigned at Not on file Gender Identity Not on file Sexual Orientation Not on file documented as of this encounter Plan of Treatment Upcoming Encounters Date Type Department Care Team (Late st Contact Info) Description 03/20/2024 9:00 AM EDT TH Visit (TeleHealth) Sleep Center at [facility] [address] [place] [phone] Denisse Hardwick, [facility] 03/20/2024 2:00 PM EDT Clinical Support Family Medicine at [facility] [address] [place] [phone] Julia Low, [facility] 05/01/2024 11:20 AM EDT Appointment Mammography/[place] [address] Rodney Padilla MD [address] [facility] [place], [place] [id number] 05/01/2024 1:45 PM EDT Office [place] [address] Juanpablo Hernandez MD [facility] [place] [address] 01/30/2025 1:30 PM EDT Appointment Hematology [place] [address] 01/30/2025 3:[address] [place] [address] Arturo Cordero MD [facility] [address] HEMATOLOGY [place] [address] 01/30/2025 4:15 PM EDT Office Visit Hematology [place] [address] Arturo Cordero MD [facility] DR HEMATOLOGY [place] [address] documented as of this encounter Visit Diagnoses Not on filedocumented in this encounter Care Teams Garbage Pick Up Worker Relationship Specialty Start Date End Date Rodney Padilla MD [address] [place] [address] PCP - General 07/18/22 documented as of this encounter
--- OUTSIDE RECORDS SUMMARY | 2024-03-04 21:17 | XMS_ITS | Encounter Summary ---
Author Organization [facility] [place] [address] Care Team Providers Care Structural Steel Painter Name Role Phone Rodney Padilla MD Primary Care Provider Encounter Details Date Type Department Care Team (Latest Contact Info) Description 02/01/2024 8:12 AM EDT - 02/01/2024 11:59 PM EDT Hospital Encounter Hematology [place] [address] Malignant melanoma of conjunctiva, left Discharge Disposition: Home Social History Tobacco Use Types Packs/Day Years [...] place to sleep or slept in a fpc (including now)? No 06/14/2021 Sex and Gender Information Value Date Recorded Sex Assigned at Not on file Gender Identity Not on file Sexual Orientation Not on file documented as of this encounter Medications at Time of Discharge Medication Sig Dispensed Refills Start Date End Date albuteroL 90 mcg/actuation inhaler (HFA) Inhale 2 puffs into the lungs every 4 hours as needed for Wheezing. USE WITH SPACER 11/24/2023 Lantus Solostar U-100 Insulin 100 unit/mL (3 mL) penIndications:type 2 diabetes mellitus Inject 10 Units subcutaneously nightly. Indications: type 2 diabetes mellitus 01/30/2024 tretinoin (RETIN-A) 0.025 % CreamIndications:Phot oaging of skin Apply a pea size amount to the face nightly. As it can be irritating, start 2-3 times per week and slowly increase to nightly use. Can also mix with a bland moisturizer to help with irritation. 45 g 11/29/2023 BD Alcohol Swabs Pads, MedicatedIndications: Type 2 diabetes mellitus with hyperglycemia, without long-term current use of insulin USE TOPICALLY ONCE DAILY 100 each 3 11/02/2023 insulin needles, disposable, 32 gauge x 5/32 NeedleIndications:true betes mellitus Inject 1 each subcutaneously daily. Indications: diabetes 100 each 11 11/02/2023 Mounjaro 2.5 mg/0.5 mL Pen InjectorIndications:t ype 2 diabetes mellitus Inject 2.5 mg subcutaneously once a week. Indications: type 2 diabetes mellitus 2 mL 11 10/27/2023 nicotine (Nicoderm CQ) 21 mg/24 hr Patch 24 hrIndications:Nicotin e dependence, cigarettes, uncomplicated Change 1 patch on the skin daily. See package instructions 28 patch 1 10/24/2023 nicotine polacrilex (Nicorette) 4 mg gumIndications:Nicoti ne dependence, cigarettes, uncomplicated Take 1 each by mouth every 2 hours as needed for Smoking cessation. Nothing but water 15 min before or during use. 100 each 3 10/24/2023 fluticasone furoate-umeclidinium- vilanterol (Trelegy Ellipta) 200-62.5-25 mcgIndications:Chroni c obstructive pulmonary disease, unspecified COPD type Inhale 1 puff into the lungs daily. Rinse mouth after use 1 each 11 10/24/2023 fluticasone propionate (Flonase) 50 mcg/actuation Phelps, Suspension SPRAY 1 SPRAY IN EACH NOSTRIL TWO TIMES A DAY 48 mL 3 09/28/2023 lamoTRIgine (LaMICtal) 150 mg tablet Take 150 mg by mouth Daily at Noon. 08/17/2023 Blood-Glucose Meter,Continuous (Dexcom G7 Bead Supervisor) MiscIndications:Type 2 diabetes mellitus with hyperglycemia, without long-term current use of insulin 1 Device by [facility]Non-Drug; Combo Route) route continuous. 08/18/2023 Blood-Glucose Sensor (Dexcom G7 Sensor) DeviceIndications:Typ e 2 diabetes mellitus with hyperglycemia, without long-term current use of insulin 1 Device by [facility]Non-Drug; Combo Route) route every 10 days. 3 each 11 08/18/2023 inhalational spacing device (Hesham Aerosol Shasta Enhancer) SpacerIndications:Chr onic obstructive pulmonary disease, unspecified COPD type 1 each by [facility]Non-Drug; Combo Route) route as needed. 1 each 2 06/20/2023 lamoTRIgine (LaMICtal) 25 mg tabletIndications:bip olar disorder in remission Take 50 mg by mouth nightly. Indications: bipolar disorder in remission sucralfate (Carafate) 100 mg/mL Suspension Take 10 mLs by mouth 4 times daily. 3726 mL 3 04/05/2023 loratadine (Claritin) 10 mg Tablet Take 1 tablet by mouth daily. 90 tablet 3 03/22/2023 freestyle lite stripsIndications:Typ e 2 diabetes mellitus with hyperglycemia, without long-term current use of insulin USE TO TEST THREE TIMES A DAY 300 strip 3 02/27/2023 FreeStyle Lancets 28 gauge MiscIndications:diabe escobar mellitus 1 each by Other route 3 times daily. Indications: diabetes 100 each 11 06/16/2022 melatonin 10 mg Capsule Take 1 capsule by mouth nightly. 04/06/2022 LORazepam (Ativan) 0.5 mg Tablet 04/04/2022 busPIRone (Buspar) 30 mg Tablet Take 30 mg by mouth 2 times daily. 04/06/2022 FreeStyle Lite Meter Kit 04/20/2022 traZODone (Desyrel) 100 mg Tablet Take 1 tablet by mouth nightly. 90 tablet 3 06/26/2020 aspirin EC 81 mg Tablet, Delayed Release (E.C.) Take 81 mg by mouth daily. simvastatin (Zocor) 10 mg tabletIndications:Mix ed hyperlipidemia TAKE ONE TABLET BY MOUTH EVERY DAY 90 tablet 1 08/28/2023 02/10/2024 clopidogreL (Plavix) 75 mg tablet Take 1 tablet by mouth daily. 90 tablet 3 03/22/2023 02/10/2024 amLODIPine (Norvasc) 5 mg tabletIndications:Ess ential hypertension Take 1 tablet by mouth daily. 90 tablet 3 03/22/2023 02/18/2024 pantoprazole EC (Protonix) [address] tablet Take 1 tablet by mouth daily. 90 tablet 3 03/22/2023 02/18/2024 losartan (Cozaar) 100 mg tablet Take 1 tablet by mouth daily. 90 tablet 3 03/22/2023 02/18/2024 metoprolol succinate XL (Toprol-XL) 25 mg ER 24 hr tablet TAKE ONE TABLET BY MOUTH EVERY DAY 90 tablet 3 02/27/2023 02/10/2024 metFORMIN XR (Glucophage XR) 500 mg ER 24 hr tablet TAKE 2 TABLETS BY MOUTH TWICE DAILY WITH MEALS 360 tablet 3 02/20/2023 02/10/2024 albuteroL (Proventil, Ventolin) (2.5 mg/3 mL) (0.083 %) Solution for Nebulization Take 3 mLs by nebulization every 4 hours as needed for Wheezing. 90 mL 1 04/12/2022 02/27/2024 documented as of this encounter Plan of Treatment Upcoming Encounters Date Type Department Care Team (Late st Contact Info) Description 03/20/2024 9:00 AM EDT TH Visit (TeleHealth) Sleep Center at [facility] [address] [place] [phone] Denisse Hardwick, [facility] 03/20/2024 2:00 PM EDT Clinical Support Family Medicine at [facility] [address] [place] [address] Julia Low, [facility] 05/01/2024 11:20 AM EDT Appointment Mammography/[place] [phone] Rodney Padilla MD [address] [place] [address] 05/01/2024 1:45 PM EDT Office [place] [address] Juanpablo Hernandez MD [facility] [place] [address] 01/30/2025 1:30 PM EDT Appointment Hematology [place] [address] 01/30/2025 3:[address] [place] [address] Arturo Cordero MD [facility] HEMATOLOGY AND ONCOLOGY [place], [place] [phone] 01/30/2025 4:15 PM EDT Office Visit Hematology [place] [address] Arturo Cordero MD [facility] DR HEMATOLOGY [place] [address] documented as of this encounter Procedures Procedure Name Priority Date/Time Associated Diagnosis Comments HEMOGRAM Routine 02/01/2024 8:19 AM EDT Malignant melanoma of conjunctiva, left DIFFERENTIAL, AUTOMATED Routine 02/01/2024 8:19 AM EDT Malignant melanoma of conjunctiva, left CBC (WITH DIFF) Routine 02/01/2024 8:19 AM EDT Malignant melanoma of conjunctiva, left LACTATE DEHYDROGENASE Routine 02/01/2024 8:19 AM EDT Malignant melanoma of conjunctiva, left COMPREHENSIVE METABOLIC PANEL Routine 02/01/2024 8:19 AM EDT Malignant melanoma of conjunctiva, left documented in this encounter Results * Differential, Automated (02/01/2024 8:19 AM EDT) Neutrophil % 65.9 % [facility] Neutrophil Absolute 5.25 1.70 - 6.10 x10(3)/[facility] Lymph % 24.4 % [facility] Lymphocytes Abs 1.9 0.9 - 3.2 x10(3)/[facility] Monocyte % 7.5 % [facility] Monocyte Abs 0.6 0.3 - 0.9 x10(3)/[facility] Eos % 1.3 % [facility] Eosinophils Abs 0.1 0.0 - 0.4 x10(3)/[facility] Basophil % 0.6 % [facility] Baso Absolute 0.0 0.0 - 0.1 x10(3)/[facility] Immature Gran % 0.30 % [facility] Comment: Immature granulocytes(IG's)percentage and absolute count will include metamyelocytes, myelocytes, and promyelocytes. Blood smears from CBCs yielding IG's will be scanned manually for concordance. If this scan disagrees with the automated IG or if promyelocytes are noted, a manual differential will be performed. Immature Gran Absolute 0.02 0.00 - 0.04 x10(3)/mcL [facility] Blood 02/01/2024 8:19 AM EDT 02/01/2024 8:39 AM EDT Narrative Resulting Agency Comment Spec In Lab Tee Lara MD HEMATOLOGY ORD ERABLES [facility] [place] [address] * (ABNORMAL) Hemogram (02/01/2024 8:19 AM EDT) White Blood Cell 8.0 4.0 - 9.5 x10(3)/mc L [facility] Red Blood Cell 4.47 4.00 - 5.21 x10(6)/mc L [facility] Hemoglobin 13.1 11.7 - 15.5 g/dL [facility] Hematocrit 39.4 35.7 - 45.8 % [facility] Mean Cell Volume 88.1 82.6 - 94.4 fL [facility] Mean Cell Hemoglobin 29.3 27.1 - 32.0 pg [facility] Mean Cell Hemoglobin Concentration 33.2 31.7 - 35.0 g/dL [facility] Platelet 371(H) 145 - 357 x10(3)/mc L [facility] RDW Standard Deviation 45.4 37.0 - 46.0 fL [facility] RDW coefficient of variation 14.3(H) 11.5 - 14.1 % [facility] Mean Platelet Volume 9.4 7.6 - 12.9 fL [facility] NRBC% auto 0.0 % [facility] NRBC Absolute 0.000 0.000 - 0.000 x10(3)/mc L [facility] Blood 02/01/2024 8:19 AM EDT 02/01/2024 8:39 AM EDT Narrative Resulting Agency Comment Spec In Lab Tee Lara MD HEMATOLOGY ORD ERABLES [facility] [place] [address] * Comprehensive metabolic panel (non-fasting) (02/01/2024 8:19 AM EDT) Glucose 162 65 - 199 mg/dL [facility] Comment:Diabetes: >=200 mg/d L plus symptoms Blood Urea Nitrogen 14 8 - 18 mg/dL [facility] Creatinine 0.90 0.70 - 1.20 mg/dL [facility] Sodium 140 135 - 145 mmol/L [facility] Potassium 4.7 3.5 - 5.0 mmol/L [facility] Comment: Please note: ??Patients with WBC >100,000 may have falsely elevated Potassium levels. ??For accurate Potassium quantification in these patients send serum separator tube (gold top) for subsequent determinations. ??Contact the Clinical Chemistry Laboratory if there are any questions. Chloride 105 98 - 107 mmol/L [facility] Carbon Dioxide 25 22 - 31 mmol/L [facility] Anion Gap 10 5 - 15 mmol/L [facility] Calcium 9.4 8.5 - 10.5 mg/dL [facility] Protein, Total 6.8 6.1 - 8.0 g/dL [facility] Albumin 4.2 3.2 - 5.2 g/dL [facility] Aspartate Aminotransferase 21 0 - 30 unit/L [facility] Alanine Aminotransferase 28 0 - 30 unit/L [facility] Alkaline Phosphatase 92 35 - 105 unit/L [facility] Bilirubin, Total 0.3 0.2 - 1.3 mg/dL [facility] Est Glomerular Filtration Rate 71 >=60 mL/min/1. 73 m?? [facility] Comment: This patient's estimated GFR [...] Cordero MD CHEMISTRY ORDERABLES Performing Organization Address City/[facility]/ZIP Co de Phone Number [facility] [place] [address] * Lactate Dehydrogenase (02/01/2024 8:19 AM EDT) Lactate Dehydrogenase 195 110 - 220 unit/L [facility] Blood 02/01/2024 8:19 AM EDT 02/01/2024 8:39 AM EDT Narrative Resulting Agency Comment Spec In Lab Arturo Cordero MD CHEMISTRY ORDERABLES Performing Organization Address City/[facility]/ZIP Co de Phone Number [facility] [place] [address] documented in this encounter Visit Diagnoses Diagnosis Malignant melanoma of conjunctiva, left documented in this encounter Care Teams Structural Steel Painter Relationship Specialty Start Date End Date Rodney Padilla MD [address] [place] [address] PCP - General 07/18/22 documented as of this encounter
--- OUTSIDE RECORDS SUMMARY | 2024-03-04 21:17 | XMS_ITS | Encounter Summary ---
Author Organization [facility] Address One [facility] [place] [address] Care Team Providers Care Kindergarten Instructional Assistant Name Role Phone Rodney Padilla MD Primary Care Provider [phone] Reason for Visit * Reason Comments Diabetes Encounter Details Date Type Department Care Team (Late st Contact Info) Description 10/27/2023 9:45 AM EDT TH Visit (TeleHealth) Family Medicine at [facility] [address] [place] [address] Julia Low, [facility] Type 2 diabetes mellitus without long-term current use of insulin (Primary Dx) Social History Tobacco Use Types [...] the money to buy more. Never true 12/06/20 21 Within the past 12 months, t [...] this encounter Progress Notes * Julia Low [facility] - 10/27/2023 9:45 AM EDT Clinical Pharmacist Consultation; Julia Low RPH Visit Type: Telehealth video followup Diabetes Mellitus (DM) & Medication Management Subjective Subjective: Patient ID: Alize Gramajo is a 62 y.o. female She is here to follow up for their type II diabetes. 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 Last dosed on Monday Prior diabetes therapy trials: Never started Rybelsus or Ozempic d/t fear of stomach SE/FARZAD glimepiride caused hypoglycemia in the afternoon Did not tolerate Tresiba Trulicity stopped d/t GI intolerance Home Glucose Monitoring are performed regularly. 1-2 x daily. Uses [employer] testing supplies Interested in Dexcom G7, report approved by insurance. Received Dexcom G7 CGM through [employer]. Has not set up Offered clinic appt to set up but pt declined as she will not be in the area for a month but she agrees to reach out to local loading unit operator crimping who assisted her in the past Before Brkfast Before Lunch After Lunch Before Supper 1-Oct 194 186 116 2-Apr 155 160 3-Apr 124 175 4-Apr 156 135 5-Apr 152 130 6-Apr 153 93 7-Apr 139 8-Apr 158 9-Apr 168 121 10-Apr 164 133 11-Apr 161 96 12-Apr 136 13-Apr 161 176 14-Apr 153 166 15-Apr 163 16-Apr 194 191 17-Apr 123 18-Apr 166 160 AM PHI PM Average 159 157 163 136 Lowest 123 133 135 93 Highest 194 186 191 176 Daily Avg 152 eA1c [id number] Prior Averages: 08/26/21 09/09/21 09/24/21 11/14/21 11/03/22 12/01/22 01/03/23 08/18/23 Daily Avg 157 168 131 138 175 153 176 211 eA1c 8.78412 8.46 7.20 7.44 8.7 7.95 8.75 9.96 Acute complications of diabetes: Have you had a low blood sugar reaction? If yes, how did you feel? No [] Denies [] Shaking [] Sweating [] Weakness/fatigue [] Dizziness [] Blurred vision [] Other Have you had high blood sugar? If yes, how did you feel? Unknown [] Denies [] Polydipsia [] Polyuria [] Polyphagia [] Other Objective Objective: Allergies and Drug intolerance: Allergies Allergen Reactions Codeine Phosphate Nausea And Vomiting Erythromycin Base Nausea Only Azithromycin Ibuprofen Stomach upset Lisinopril cough Nsaids (Non-Steroidal Anti-Inflammatory Drug) Nausea And Vomiting Medication List: Current Outpatient Medications Medication Sig Dispense Refill nicotine (Nicoderm CQ) 21 mg/24 hr Patch 24 hr Change 1 patch on the skin daily. See package instructions 28 patch 1 nicotine polacrilex (Nicorette) 4 mg gum Take 1 each by mouth every 2 hours as needed for Smoking cessation. Nothing but water 15 min before or during use. 100 each 3 fluticasone wkrmcwb-pgulrbeszbxh-hycvxevogl (Trelegy Ellipta) 200-62.5-25 mcg Inhale 1 puff into the lungs daily. Rinse mouth after use 1 each 11 fluticasone propionate (Flonase) 50 mcg/actuation [place], Suspension SPRAY 1 SPRAY IN EACH NOSTRIL TWO TIMES A DAY 48 mL 3 lamoTRIgine (LaMICtal) 150 mg tablet Take 150 mg by mouth Daily at Noon. simvastatin (Zocor) 10 mg tablet TAKE ONE TABLET BY MOUTH EVERY DAY 90 tablet 1 Blood-Glucose Meter,Continuous (Dexcom G7 Customer Logistics Manager) Misc 1 Device by [facility].(Non- Drug; Combo Route) route continuous. Blood-Glucose Sensor [...] type 2 diabetes mellitus 3 mL 11 inhalational spacing device (Hesham Aerosol [place] Enhancer) Spacer 1 each by Misc.(Non-Drug; Combo [...] subcutaneously daily. Indications: diabetes 100 each 11 FreeStyle Lancets 28 gauge Misc 1 [...] taking: Reported on 08/29/2023) 90 mL 1 traZODone (Desyrel) 100 mg Tablet Take 1 tablet by mouth nightly. 90 tablet 3 aspirin EC 81 mg Tablet, Delayed Release (E.C.) Take 81 mg by mouth daily. No current facility-administered medications for this visit. Most Recent Vitals: BP Readings from Last 3 Encounters: 10/24/23 144/69 09/19/23 150/78 08/29/23 125/62 BMI Readings from Last 3 Encounters: 10/24/23 42.37 kg/m?? 09/19/23 42.68 kg/m?? 08/29/23 41.60 kg/m?? Wt Readings from Last 3 Encounters: 10/24/23 110.2 kg (243 lb) 09/19/23 111 kg (244 lb 12.8 oz) 08/29/23 108.2 kg (238 lb 9.6 oz) Pertinent Lab values: Lab Results Component Value Date NA 140 08/03/2023 K 4.9 08/03/2023 CL 103 08/03/2023 CO2 27 08/03/2023 BUN 17 08/03/2023 CREATININE 0.82 08/03/2023 GLUCOSE 254 (H) 08/03/2023 GLUCFASTING 116 (H) 06/29/2019 CALCIUM 9.5 08/03/2023 ESTGFR 80 08/03/2023 Last 3 Hemoglobin A1Cs Lab Results Component Value Date HA1C 9.2 (H) 09/19/2023 HA1C 9.4 (H) 06/20/2023 HA1C 8.5 (A) 02/23/2023 Lab Results Component Value Date CHLPL 141 06/20/2023 HDL 41 06/20/2023 CHOLHDL 3.4 06/20/2023 TRIG 96 06/20/2023 LDLCHOL 81 06/20/2023 Immunization history: Immunization status: missing Shingrix Current Immunizations Name Date INFLUENZA 05/10/2007 Influenza Quadrivalent with Preservative 05/06/2020 Influenza Quadrivalent, Preservative Free 06/20/2023 , 06/07/2022 , 05/31/2021 , 04/09/2019 , 05/08/2015 Pfizer Covid-19 Bivalent 12Yrs+ (Gordon Cap 30mcg) 06/07/2022 Pneumococcal Conjugate (Prevnar 13) 04/09/2019 Pneumococcal Polysaccharide (Pneumovax 23) 05/10/2007 TD Adult 10/07/2005 Td Adult, Absorbed, Preservative Free 06/24/2011 , 09/07/2005 Tdap 04/09/2019 , 06/24/2011 Prescription Insurance: No value filed. Assessment and Recommendations: Diabetes Lab Results Component Value Date HA1C 9.2 (H) 09/19/2023 Clinic A1c is not at goal based on referral specified goal of <7% on diabetes regimen consistingof metformin and Lantus and prandial coverage using recently added ozempic after Trulicity was intolerable. A1c has been elevated consistently since 2019 Appears adherent but having intolerable SE to Ozempic. Home glucose have been significantly improved from an average of 211 to 152 as expected on Ozempic However pt is unable to continue therapy d/t SE. Has been unable to tolerate Trulicity and did not start Rybelsus d/t fear of SE. Can try an alternative with a different MOA such as GLP/GIP mounjaro since pt's BGs have improved with GLP therapy but she has been unable to tolerate SE Blood Pressure BP Readings from Last 3 Encounters: 10/24/23 144/69 09/19/23 150/78 08/29/23 125/62 Clinic BP is not well controlled with antihypertensive regimen consisting of losartan, metoprolol, and amlodipine Would benefit form encouragement to set a quit date Cholesterol: Lipid Panel Lab Results Component Value Date CHLPL 141 06/20/2023 HDL 41 06/20/2023 CHOLHDL 3.4 06/20/2023 TRIG 96 06/20/2023 LDLCHOL 81 06/20/2023 The 10-year ASCVD risk score (Jose Alberto BRADLEY, et al., 2019) is: 24.5% Values used to calculate the score: Age: 62 years Sex: Female Is Non- : No Diabetic: Yes Tobacco smoker: Yes Systolic Blood Pressure: 144 mmHg Is BP treated: Yes HDL Cholesterol: 41 mg/dL Total Cholesterol: 141 mg/dL Patient's LDL is currently at goal per most recent labs. She is currently prescribed simvastatin. Plan: Treatment changes: Diabetes Medication Regimen at conclusion of 10/27/23 encounter: Metformin XR 500 mg 2 tabs BID Lantus 18 units daily START Mounjaro 2.5 mg once weekly STOP Ozempic due to SE Diagnoses and all orders for this visit: Type 2 diabetes mellitus without long-term current use of insulin - Mounjaro 2.5 mg/0.5 mL Pen Injector; Inject 2.5 mg subcutaneously once a week. Indications: type 2 diabetes mellitus Efforts to improve adherence to therapy plan (if necessary) will be directed at: Encouraged to start CGM. Pt plans to connect with RD locally to help with application or ask her daughter this weekend. Sent her video for application teaching Encouraged reconnecting with RD about diet goals including CHO counting Follow up in 2 months to review Dexcom data and Mounjaro tolerance Pt verbalized agreement and understanding of plan with no further questions at this time. Pt understands IF NO CPA ON FILE no changes to current drug regimen were made at the appointment and that RPhis providing recommendations for provider review and follow up. Julia Low RPH 10/27/23 Total time spent: 45 minutes documented in this encounter Plan of Treatment Upcoming Encounters Date Type Department Care Team (Late st Contact Info) Description 03/20/2024 9:00 AM EDT TH Visit (TeleHealth) Sleep Center at [facility] [address] [place] [phone] Denisse Hardwick [facility] 03/20/2024 2:00 PM EDT Clinical Support Family Medicine at [facility] [address] [place] [phone] Julia Low RPH 05/01/2024 11:20 AM EDT Appointment Mammography/[place] [address] Rodney Padilla MD [address] [facility] [place], [place] [id number] 05/01/2024 1:45 PM EDT Office Visit [place] [address] Juanpablo Hernandez MD [facility] [place] [address] 01/30/2025 1:30 PM EDT Appointment Hematology [place] [address] 01/30/2025 3:[address] [place] [address] Arturo Cordero MD [facility] [address] HEMATOLOGY [place] [address] 01/30/2025 4:15 PM EDT Office Visit Hematology [place] [address] Arturo Cordero MD [facility] [address] HEMATOLOGY [place] [address] documented as of this encounter Visit Diagnoses Diagnosis Type 2 diabetes mellitus without long-term current use of insulin- Primary documented in this encounter Care Teams Kindergarten Instructional Assistant Relationship Specialty Start Date End Date Rodney Padilla MD [address] [place] [address] PCP - General 07/18/22 documented as of this encounter
--- OUTSIDE RECORDS SUMMARY | 2024-03-04 21:17 | XMS_ITS | Encounter Summary ---
Author Organization [facility] [place] [address] Care Team Providers Care Advanced Practice Registered Nurse Name Role Phone Rodney Padilla MD Primary Care Provider Encounter Details Date Type Department Care Team (Late st Contact Info) Description 08/29/2023 2:15 PM EST Office Visit Sleep Center at [facility] [address] [place] [phone] Samantha Cadet, TEACHER HOME THERAPY TITO on CPAP Social History Tobacco Use Types Packs/Day Years [...] place to sleep or slept in a intermediate (including now)? No 06/14/2021 Sex and Gender Information Value Date Recorded Sex Assigned at Not on file Gender Identity Not on file Sexual Orientation Not on file documented as of this encounter Last Filed Vital Signs Vital Sign Reading Time Taken Comments Blood Pressure 125/62 08/29/2023 2:10 PM EST Pulse 70 08/29/2023 2:10 PM EST Temperature - - Respiratory Rate - - Oxygen Saturation 96% 08/29/2023 2:10 PM EST Inhaled Oxygen Concentration - - Weight 108.2 kg (238 lb 9.6 oz) 08/29/2023 2:10 PM EST Height 161.3 cm (5' 3.5) 08/29/2023 2:10 PM EST Body Mass Index 41.6 08/29/2023 2:10 PM EST documented in this encounter Progress Notes * Samantha Cadet RCP - 08/29/2023 2:15 PM EST Sleep Medicine Clinical Health Specialist Brief Follow-Up Note HPI: Ms. Alize Gramajo is a 62 y.o. female seen for follow-up of obstructive sleep apnea. She has a history of CAD,malignant neoplasm of kidney, asthma, COPD, Diabetes, HTN, MT, dry mouth, left eye,and mental health problem. Sleep Medicine Consultation 02/18/10 EDS and snoring in the setting of CAD and HTN Sleep study: PSG 03/05/10 @ 271 lbs AHI of 27, CMS AHI of 16, min saturation of 61%, significant desaturations in REM Mean saturation overnight asleep 90% with 75 minutes < 89% Wide complex ectopy noted Plan: CPAP titration 04/19/22 seen [address] clinic with Dr. Morataya Recommendations: 1) CPAP auto 11-16 cm (no change) but new machine and mask prescribed. If unable to get a new CPAP we can reassess how she is doing after she gets her new mask. 2) Follow-up 3 mo RT plus, suggested she make it for 30-90 days after she receives her new CPAP 3) Behavioral treatments for insomnia 4) CBT for insomnia referral placed 5) Take sleep aides in the evening when she starts to get sleepy. Do not let sleep aides dicatate when she gets sleepy. Allow at least [address] after taking sleep aides. Patient RTC today for : Last seen in 04/19/22-Received the recalled part of machine. 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----moved 2 months ago into an apartment Treatment: CPAP Device: DS autoCPAP Pressure: 11-16 cm Pressure Intolerance: no Supplemental oxygen: n/a Interface/Mask: AF F20 medium Difficulty tolerating mask :yes Pulling mask off during the night : no Chin Strap: no HCC:[employer] Insurance: Snoring: no Dry Mouth/Throat: has dry mouth anyways-not worse in the am Mouth Breathing:yes Symptom Benefit: more rested with CPAP [place]:QSLEEPRESPONSES@Patient-reported last 4 scores: 05/07/2019 6:23 PM 05/09/2019 11:11 AM 04/13/2022 12:14 PM 08/29/2023 1:41 PM [facility] [place] Sleep 7 (Low Risk) 10 (High Risk) 5 (Low Risk) 4 (Low Risk) Insomnia Severity Index 22 (Severe insomnia) 9 (Subthreshold insomnia) 11 (Subthreshold insomnia) Sleep quality: when she gets to sleep -good Sleep meds: melatonin and trazodone and lorazepam in evening to settle down BT: 9-11pm Latency: 1 hour or two Position: side Nocturia: no Awakenings: no RT: 4-5 am thinks its anxiety----8or 9 am and will go back to sleep for a couple of hours with the mask on Daytime Symptoms: not sure due to feeling she is not over COVID Involuntary Dozing: sometimes in early evening might start to doze, but then will get up Napping: has not been napping Driving: Sleepiness or drowsiness: no-doesn't drive far Caffeine:am Alcohol: rare ROS: ENT: Nasal Obstruction: in am having congestion before COVID (uses Flonase) Physical Exam: Respirations: Even and not labored at rest DERM: Skin irritation: no Vitals: 08/29/23 1410 BP: 125/62 Pulse: 70 SpO2: 96% Weight: 108.2 kg (238 lb 9.6 oz) Height: 161.3 cm (5' 3.5) PSG 03/05/10 -271 lbs 08/29/23 weight:238lb Wt Readings from Last 3 Encounters: 08/03/23 112.8 kg (248 lb 10.9 oz) 06/20/23 111.4 kg (245 lb 9.6 oz) 04/17/23 107.6 kg (237 lb 3.2 oz) Compliance Card Data: Date Range: 05/30-08/27/23 Settin-16cm median 95th/ Residual AHI: 0.8 Vibratory Snore Index: 2.3 % Night in Large Leak: 1.6 Average usage all days- 10Hours: # of Days of usage: 90/90 % Days used > 4 hours 99% Total % Days used 100% Time spent face to face: 45 min. Assessment: Ms. Alize Gramajo is a 62 y.o. female here for a follow up for obstructive sleep apnea. Patient reported having COVID a few weeks ago. Weight is stable. Patient reported pressure is okayand has not had a new mask in a very long time per patient. No waking to snoring or gasping. Alwayshas had a dry mouth. Discussed briefly adjusting humidity, but she stated it was not noticeably worse in am. No nocturia. No other awakenings. Reported she cannot fall asleep without CPAP, and feels better with CPAP.. She feels tired now at times due to getting over COVID and getting use to her newhome when sleeping. Download reveals excellent compliance, good control of AHI and some leak. Provid ed a F20 medium mask to patient as her mask was very old. Supplies to be ordered. RTC in 6 months. Recommendations: 1) autoCPAP 11-16 cm with ramp and HH 2) Follow-up: RTC in 6 months 3) Driving safety discussed, recommend patient not drive if drowsy, if drowsy while driving to bleach boiler puller and take a nap. 4) Patient to replace supplies routinely and understands mask cushions can be replaced monthly. 5) Script to RR for all CPAP supplies. The patient indicates understanding of these issues and agrees with the plan. documented in this encounter Plan of Treatment Upcoming Encounters Date Type Department Care Team (Late st Contact Info) Description 03/20/2024 9:00 AM EDT TH Visit (TeleHealth) Sleep Center at [facility] [address] [place] [phone] Denisse Hardwick, ASSISTANT SUPERINTENDENT [facility] 03/20/2024 2:00 PM EDT Clinical Support Family Medicine at [facility] [address] [place] [phone] Julia Low, [facility] 05/01/2024 11:20 AM EDT Appointment Mammography/[place] [phone] Rodney Padilla MD [address] [facility] [place] [address] 05/01/2024 1:45 PM EDT Office [place] [phone] Juanpablo Hernandez MD [facility] [place] [address] 01/30/2025 1:30 PM EDT Appointment Hematology [place] [phone] 01/30/2025 3:[address] [place] [address] Arturo Cordero MD [facility] DR HEMATOLOGY [place] [address] 01/30/2025 4:15 PM EDT Office Visit Hematology [place] [address] Arturo Cordero MD [facility] DR HEMATOLOGY [place] [address] documented as of this encounter Visit Diagnoses Diagnosis TITO on CPAP Obstructive sleep apnea (adult) (pediatric) documented in this encounter Care Teams Advanced Practice Registered Nurse Relationship Specialty Start Date End Date Rodney Padilla MD [address] [place] [address] PCP - General 07/18/22 documented as of this encounter
--- OUTSIDE RECORDS SUMMARY | 2024-03-04 21:17 | XMS_ITS | Encounter Summary ---
Author Organization [facility] Address [facility] [place] [place] [address] Care Team Providers Care Delivery Table Feeder Name Role Phone Rodney Padilla MD Primary Care Provider [phone] Encounter Details Date Type Department Care Team (Latest Contact Info) Description 11/29/2023 Travel Social History Tobacco Use Types Packs/Day [...] place to sleep or slept in a senior care (including now)? No 06/14/2021 Sex and Gender Information Value Date Recorded Sex Assigned at Not on file Gender Identity Not on file Sexual Orientation Not on file documented as of this encounter Plan of Treatment Upcoming Encounters Date Type Department Care Team (Late st Contact Info) Description 03/20/2024 9:00 AM EDT TH Visit (TeleHealth) Sleep Center at [facility] [address] [place] [phone] Denisse Hardwick, [facility] 03/20/2024 2:00 PM EDT Clinical Support Family Medicine at [facility] [address] [place] [phone] Julia Low, [facility] 05/01/2024 11:20 AM EDT Appointment Mammography/[place] [address] Rodney Padilla MD [address] [facility] [place] [address] 05/01/2024 1:45 PM EDT Office [place] [address] Juanpablo Hernandez MD [facility] [place] [address] 01/30/2025 1:30 PM EDT Appointment Hematology [place] [address] 01/30/2025 3:[address] [place] [address] Arturo Cordero MD [facility] DR HEMATOLOGY [place] [address] 01/30/2025 4:15 PM EDT Office Visit Hematology [place] [address] Arturo Cordero MD [facility] DR HEMATOLOGY [place] [address] documented as of this encounter Visit Diagnoses Not on filedocumented in this encounter Care Teams Delivery Table Feeder Relationship Specialty Start Date End Date Rodney Padilla MD [address] [place] [place] [address] PCP - General 07/18/22 documented as of this encounter
--- OUTSIDE RECORDS SUMMARY | 2024-03-04 21:17 | XMS_ITS | Encounter Summary ---
Author Organization [facility] [place] [address] Care Team Providers Care Geography Instructor Name Role Phone Rodney Padilla MD Primary Care Provider [phone]- [phone] Reason for Visit * Reason Onset Date Comments Medication Refill 02/10/2024 Encounter Details Date Type Department Care Team (Late st Contact Info) Description 02/10/2024 Refill Family Medicine at [facility] [address] [place] [phone] Rodney Padilla MD [address] [facility] [address] Mixed hyperlipidemia Social History Tobacco Use Types [...] place to sleep or slept in a custodial (including now)? No 06/14/2021 Sex and Gender Information Value Date Recorded Sex Assigned at Not on file Gender Identity Not on file Sexual Orientation Not on file documented as of this encounter Miscellaneous Notes * Telephone Encounter - Bella Hargrove CMA - 02/13/2024 11:23 AM EDT Prescription Renewal Request Name: Alize Gramajo : 1960 Prescription(s) Requested: Requested Prescriptions Pending Prescriptions Disp Refills clopidogreL (Plavix) 75 mg tablet 90 tablet 3 Sig: Take 1 tablet by mouth daily. simvastatin (Zocor) 10 mg tablet 90 tablet 3 Sig: Take 1 tablet by mouth daily. Date of Encounter last in This Dept (If need an appointment send to secretaries to schedule): 12/20/23 Next Encounter in This Dept: 03/20/2024 Date of Last Refill (for each medication): clopidogreL - 03/22/23 simvastatin -08/28/23 Medication category requirements (labs etc): Status of request: Pended Allergies Allergen Reactions Codeine Phosphate Nausea And Vomiting Erythromycin Base Nausea Only Azithromycin Ibuprofen Stomach upset Lisinopril cough Nsaids (Non-Steroidal Anti-Inflammatory Drug) Nausea And Vomiting eBlla Hargrove CMA 02/13/24 11:23 AM documented in this encounter Plan of Treatment Upcoming Encounters Date Type Department Care Team (Late st Contact Info) Description 03/20/2024 9:00 AM EDT TH Visit (TeleHealth) Sleep Center at [facility] [address] [place] [address] Denisse Hardwick, [facility] 03/20/2024 2:00 PM EDT Clinical Support Family Medicine at [facility] [address] [place] [address] Julia Low, [facility] 05/01/2024 11:20 AM EDT Appointment Mammography/[place] [address] Rodney Padilla MD [address] [place] [address] 05/01/2024 1:45 PM EDT Office Visit [place] [address] Juanpablo Hernandez MD [facility] [place] [address] 01/30/2025 1:30 PM EDT Appointment Hematology [place] [address] 01/30/2025 3:[address] [place] [address] Arturo Cordero MD [facility] HEMATOLOGY AND ONCOLOGY [place], [place] [id number] 01/30/2025 4:15 PM EDT Office Visit Hematology [place] [address] Arturo Cordero MD [facility] DR [place] [address] documented as of this encounter Visit Diagnoses Diagnosis Mixed hyperlipidemia documented in this encounter Care Teams Geography Instructor Relationship Specialty Start Date End Date Rodney Padilla MD [address] [place] [address] PCP - General 07/18/22 documented as of this encounter
--- OUTSIDE RECORDS SUMMARY | 2024-03-04 21:17 | XMS_ITS | Encounter Summary ---
Author Organization [facility] Address [place] [address] [place] [address] Care Team Providers Care Structural Metal Fabricator Apprentice Name Role Phone Rodney Padilla MD Primary Care Provider Encounter Details Date Type Department Care Team (Latest Contact Info) Description 02/28/2024 11:15 AM EDT TH Visit (TeleHealth) Sleep Center at [facility] [address] [place] [address] Barbra Martínez C, RT PATIENT NOT SEEN Social History Tobacco Use Types Packs/Day Years [...] place to sleep or slept in a half-way (including now)? No 06/14/2021 Sex and Gender Information Value Date Recorded Sex Assigned at Not on file Gender Identity Not on file Sexual Orientation Not on file documented as of this encounter Last Filed Vital Signs Vital Sign Reading Time Taken Comments Blood Pressure - - Pulse - - Temperature - - Respiratory Rate - - Oxygen Saturation - - Inhaled Oxygen Concentration - - Weight 108.9 kg (240 lb) 02/27/2024 3:17 PM EDT Height 160 cm (5' 3) 02/27/2024 3:17 PM EDT Body Mass Index 42.51 02/27/2024 3:17 PM EDT documented in this encounter Progress Notes * Noreen Brambila MD - 02/28/2024 11:15 AM EDT This patient was not seen in this encounter. documented in this encounter Plan of Treatment Upcoming Encounters Date Type Department Care Team (Late st Contact Info) Description 03/20/2024 9:00 AM EDT TH Visit (TeleHealth) Sleep Center at [facility] [address] [place] [address] Denisse Hardwick, [facility] 03/20/2024 2:00 PM EDT Clinical Support Family Medicine at [facility] [address] [place] [address] Julia Low, [facility] 05/01/2024 11:20 AM EDT Appointment Mammography/DXA at [place] [phone] Rodney Padilla MD [address] [place] [address] 05/01/2024 1:45 PM EDT Office Visit Ophthalmology at [place] [address] Juanpablo Hernandez MD [facility] [address] 01/30/2025 1:30 PM EDT Appointment Hematology and Oncology at [place] [address] 01/30/2025 3:[address] Scan at [address] Arturo Cordero MD [facility] [address] [place] [address] 01/30/2025 4:15 PM EDT Office Visit Hematology and Oncology at [place] [phone] Arturo Cordero MD [facility] DR HEMATOLOGY [place] [address] documented as of this encounter Visit Diagnoses Diagnosis DH PATIENT NOT SEEN documented in this encounter Care Teams Structural Metal Fabricator Apprentice Relationship Specialty Start Date End Date Rodney Padilla MD [address] [place] [address] PCP - General 07/18/22 documented as of this encounter
--- OUTSIDE RECORDS SUMMARY | 2024-03-04 21:17 | XMS_ITS | Encounter Summary ---
Author Organization [facility] Address [facility] [place] [address] Care Team Providers Care Spray Gun Operator Name Role Phone Rodney Padilla MD Primary Care Provider [phone]- [phone] Reason for Visit * Reason Onset Date Comments Medication Refill 02/10/2024 Encounter Details Date Type Department Care Team (Late st Contact Info) Description 02/10/2024 Refill Family Medicine at [facility] [address] [place] [address] Luis E Narayan MD [facility] [address] [place] [address] Social History Tobacco Use Types Packs/Day Years [...] encounter Miscellaneous Notes * Telephone Encounter - Shelbie Cruz CMA - 02/13/2024 11:00 AM EDT Prescription Renewal Request Name: Alize Gramajo : 1960 Prescription(s) Requested: Requested Prescriptions Pending Prescriptions Disp Refills metFORMIN XR (Glucophage XR) 500 mg ER 24 hr tablet 360 tablet 3 Sig: Take 2 tablets by mouth 2 times daily (with meals). metoprolol succinate XL (Toprol-XL) 25 mg ER 24 hr tablet 90 tablet 3 Sig: Take 1 tablet by mouth daily. Date of Encounter last in This Dept (If need an appointment send to secretaries to schedule): 01/01/2024 Next Encounter in This Dept: 03/20/2024 Date of Last Refill (for each medication): metformin 02/20/2023 360/3 Randy Metoprolol 02/27/2023 90/3 Randy Medication category requirements (labs etc): Lab Results Component Value Date HA1C 9.4 (H) 12/20/2023 Lab Results Component Value Date NA 140 02/01/2024 K 4.7 02/01/2024 CL 105 02/01/2024 CO2 25 02/01/2024 BUN 14 02/01/2024 CREATININE 0.90 02/01/2024 GLUCOSE 162 02/01/2024 GLUCFASTING 116 (H) 06/29/2019 CALCIUM 9.4 02/01/2024 ESTGFR 71 02/01/2024 Status of request: Pended Allergies Allergen Reactions Codeine Phosphate Nausea And Vomiting Erythromycin Base Nausea Only Azithromycin Ibuprofen Stomach upset Lisinopril cough Nsaids (Non-Steroidal Anti-Inflammatory Drug) Nausea And Vomiting Shelbie Cruz CMA 02/13/24 11:00 AM documented in this encounter Plan of Treatment Upcoming Encounters Date Type Department Care Team (Late st Contact Info) Description 03/20/2024 9:00 AM EDT TH Visit (TeleHealth) Sleep Center [facility] [address] [place] [phone] Denisse Hardwick, [facility] 03/20/2024 2:00 PM EDT Clinical Support Family [facility] [address] [place] [address] Julia Low, [facility] 05/01/2024 11:20 AM EDT Appointment Mammography/[place] [address] Rodney Padilla MD [address] [place] [address] 05/01/2024 1:45 PM EDT Office [place] [address] Juanpablo Hernandez MD [facility] [place] [address] 01/30/2025 1:30 PM EDT Appointment Hematology [place] [address] 01/30/2025 3:[address] [place] [address] Arturo Cordero MD [facility] DR HEMATOLOGY [place] [address] 01/30/2025 4:15 PM EDT Office Visit Hematology [place] [address] Arturo Cordero MD [facility] DR HEMATOLOGY [place] [address] documented as of this encounter Visit Diagnoses Not on filedocumented in this encounter Care Teams Spray Gun Operator Relationship Specialty Start Date End Date Rodney Padilla MD [address] [place] [address] PCP - General 07/18/22 documented as of this encounter
--- OUTSIDE RECORDS SUMMARY | 2024-03-04 21:17 | XMS_ITS | Encounter Summary ---
Author Organization [facility] Address [facility] [place] [address] Care Team Providers Care Mica Layer Name Role Phone Rodney Padilla MD Primary Care Provider [phone]- [phone] Encounter Details Date Type Department Care Team (Latest Contact Info) Description 12/19/2023 Travel Social History Tobacco Use Types Packs/Day [...] EDT TH Visit (TeleHealth) Sleep Center at [facility] [address] [place] [phone] Denisse Hardwick, [facility] 03/20/2024 2:00 PM EDT Clinical Support Family Medicine at [facility] [address] [place] [address] Julia Low, [facility] 05/01/2024 11:20 AM EDT Appointment Mammography/[place] [address] Rodney Padilla MD [address] [place] [place] [address] 05/01/2024 1:45 PM EDT Office [place] [address] Juanpablo Hernandez MD [facility] [place] [address] 01/30/2025 1:30 PM EDT Appointment Hematology [place] [address] 01/30/2025 3:[address] [place] [address] Arturo Cordero MD [facility] [address] [place] [address] 01/30/2025 4:15 PM EDT Office Visit Hematology [place] [address] Arturo Cordero MD [facility] [address] [place] [address] documented as of this encounter Visit Diagnoses Not on filedocumented in this encounter Care Teams Mica Layer Relationship Specialty Start Date End Date Rodney Padilla MD [address] [place] [address] PCP - General 07/18/22 documented as of this encounter
--- OUTSIDE RECORDS SUMMARY | 2024-03-04 21:17 | XMS_ITS | Encounter Summary ---
Author Organization [facility] [place] [address] Care Team Providers Care Machine Accountant Name Role Phone Rodney Padilla MD Primary Care Provider Reason for Referral * Diagnostic Test (Routine) - Closed Specialty Diagnoses / Procedures Referred By Contac t Referred To Contact Radiology Diagnoses Malignant melanoma of conjunctiva, left Procedures CT Neck Soft Tissue w Contrast (Generic) Tee Lara MD [facility] DR HEMATOLOGY/[place] [address] [facility] [place] [address] Referral ID Status Reason Start Date Expiration Date V isits Requested Visits Authorized [id number] Closed Specialty Service Requested 08/03/2023 01/31/2025 1 1 * Diagnostic Test (Routine) - Closed Specialty Diagnoses / Procedures Referred By Contac t Referred To Contact Radiology Diagnoses Malignant melanoma of conjunctiva, left Procedures CT Chest Abdomen Pelvis w Contrast (Generic) Tee Lara MD [facility] DR HEMATOLOGY/[place] [address] [facility] [place] [address] Referral ID Status Reason Start Date Expiration Date V isits Requested Visits Authorized [id number] Closed Specialty Service Requested 08/03/2023 01/31/2025 1 1 Reason for Visit * Diagnostic Test (Routine) - Closed Specialty Diagnoses / Procedures Referred By Contac t Referred To Contact Radiology Diagnoses Malignant melanoma of conjunctiva, left Procedures CT Chest Abdomen Pelvis w Contrast (Generic) Tee Lara MD [facility] DR HEMATOLOGY/[place] [address] [facility] [place] [address] Referral ID Status Reason Start Date Expiration Date V isits Requested Visits Authorized [id number] Closed Specialty Service Requested 08/03/2023 01/31/2025 1 1 Encounter Details Date Type Department Care Team (Latest Contact Info) Description 02/01/2024 8:04 AM EDT - 02/01/2024 8:11 AM EDT Hospital [place] [address] Arturo Cordero MD [facility] DR HEMATOLOGY [place] [address] Malignant melanoma of conjunctiva, left Discharge Disposition: [...] place to sleep or slept in a jail (including now)? No 06/14/2021 Sex and Gender [...] 11/02/2023 insulin needles, disposable, 32 gauge x /32 NeedleIndications:true betes mellitus Inject 1 each subcutaneously [...] Rinse mouth after use 1 each 10/24/2023 fluticasone propionate (Flonase) 50 mcg/actuation [place], Suspension SPRAY 1 SPRAY IN EACH NOSTRIL TWO TIMES A DAY 48 mL 3 09/28/2023 lamoTRIgine (LaMICtal) 150 mg tablet Take 150 mg by mouth Daily at Noon. 08/17/2023 Blood-Glucose Meter,Continuous (Dexcom G7 [employer] Internship) MiscIndications:Type 2 diabetes mellitus with hyperglycemia, without long-term current use of insulin 1 Device by [facility].(Non-Drug; Combo Route) route continuous. 08/18/2023 Blood-Glucose Sensor (Dexcom G7 Sensor) DeviceIndications:Typ e 2 diabetes mellitus with hyperglycemia, without long-term current use of insulin 1 Device by [facility].(Non-Drug; Combo Route) route every 10 days. 3 each 11 08/18/2023 inhalational spacing device ([employer] Aerosol [place] Enhancer) SpacerIndications:Chr onic obstructive pulmonary disease, unspecified COPD type 1 each by [facility].(Non-Drug; Combo Route) route as needed. 1 each [...] EDT TH Visit (TeleHealth) Sleep Center at [facility] [address] [place] [address] Denisse Hardwick, [facility] 03/20/2024 2:00 PM EDT Clinical Support Family Medicine at [facility] [address] [place] [place] [address] Julia Low, [facility] 05/01/2024 11:20 AM EDT Appointment Mammography/[place] [address] Rodney Padilla MD [address] [place] [address] 05/01/2024 1:45 PM EDT Office [place] [address] Juanpablo Hernandez MD [facility] [place] [address] 01/30/2025 1:30 PM EDT Appointment Hematology [place] [address] 01/30/2025 3:[address] [place] [address] Arturo Cordero MD [facility] HEMATOLOGY [place] [address] 01/30/2025 4:15 PM EDT Office Visit Hematology [place] [address] Arturo Cordero MD [facility] DR HEMATOLOGY [place] [address] documented as of this encounter Procedures Procedure Name Priority Date/Time Associated Diagnosis Comments CT CHEST ABDOMEN PELVIS W CONTRAST (GENERIC) Routine 02/01/2024 10:24 AM EDT Malignant melanoma of conjunctiva, left CT NECK SOFT TISSUE W CONTRAST Routine 02/01/2024 10:24 AM EDT Malignant melanoma of conjunctiva, left documented in this encounter Results * CT Neck Soft Tissue w Contrast (Generic) (02/01/2024 10:24 AM EDT) WORKSTATION ID [id number] RAD Anatomical Region Laterality Modality Neck, Head [...] who have questions please contact the health child care counselor that requested your imaging first. ? Narrative [...] patients who have questions please contactthe health child care counselor that requested your imaging first. Electronically signed by: Dipika Palacios [facility]([phone]), at 02/02/2024 4:32 PM Arturo Cordero MD IMG CT ORDERABLES * CT Chest Abdomen Pelvis w Contrast (Generic) (02/01/2024 10:24 AM EDT) WORKSTATION ID [id number] RAD Anatomical Region Laterality Modality Abdomen, Pelvis [...] who have questions please contact the health child care counselor that requested your imaging first. ? Electronically signed by: Leo Camilo MD, [facility] ([phone]), at 02/02/2024 9:52 AM Narrative 02/02/2024 9:52 AM EDT EXAMINATION: CT [...] sclerotic osseous lesions detected. Procedure Note Leo Camilo MD - 02/02/2024 EXAMINATION: CT CHEST ABDOMEN [...] patients who have questions please contactthe health child care counselor that requested your imaging first. Arturo Cordero MD IMG CT ORDERABLES documented in this encounter Visit Diagnoses Diagnosis Malignant melanoma of conjunctiva, left documented in this encounter Administered Medications Inactive Administered Medications - up to 3 most recent administrations Medication Order MAR Action Action Date Dose Rate Site iohexoL (Omnipaque) (350 mg/mL) solution 0-200 mL 0-200 mL, Intravenous, ONCE PRN, 1 dose, Starting on Carolee 02/01/24 at 1011, Until Carolee 02/01/24 at 1024, Per Protocol, Warning Vesicant/Irritant Medication , Radiology Contrast, Routine Given 02/01/2024 10:24 AM EDT 120 mLs Righ t Arm iohexoL (Omnipaque) (350 mg/mL) solution 0-50 mL 0-50 mL, Oral, ONCE, 1 dose, On Carolee 02/01/24 at 1030, Warning Vesicant/Irritant Medication , Radiology Contrast, Routine Given 02/01/2024 10:30 AM EDT 50 mLs documented in this encounter Care Teams Machine Accountant Relationship Specialty Start Date End Date Rodney Padilla MD [address] [place] [address] PCP - General 07/18/22 documented as of this encounter
--- OUTSIDE RECORDS SUMMARY | 2024-03-04 21:17 | XMS_ITS | Encounter Summary ---
Author Organization [place] [address] Care Team Providers Care Surveyor Geophysical Prospecting Name Role Phone Rodney Padilla MD Primary Care Provider Reason for Referral * Diagnostic Test (Routine) - New Request Specialty Diagnoses / Procedures Referred By Contac t Referred To Contact Radiology Diagnoses Malignant melanoma of conjunctiva, left Procedures CT Neck Soft Tissue w Contrast (Generic) Arturo Cordero MD [facility] [place] [address] [facility] [place] [address] Referral ID Status Reason Start Date Expiration Date Visits Requested Visits Authorized [id number] New Request Specialty Service Requested 02/02/2024 08/04/2025 1 1 * Diagnostic Test (Routine) - New Request Specialty Diagnoses / Procedures Referred By Contac t Referred To Contact Radiology Diagnoses Lung nodule Renal cell cancer, left Procedures CT Chest Abdomen Pelvis w Contrast (Generic) Arturo Cordero MD [facility] [address] [place] [address] [facility] [place] [address] Referral ID Status Reason Start Date Expiration Date Visits Requested Visits Authorized [id number] New Request Specialty Service Requested 02/02/2024 08/04/2025 1 1 Reason for Visit * Reason Comments Follow-up Encounter Details Date Type Department Care Team (Late st Contact Info) Description 02/01/2024 11:15 AM EDT Office Visit Hematology [place] [address] Arturo Cordero MD [facility] [address] [place] [address] Malika Luna APRN [facility] [place] [address] Malignant melanoma of conjunctiva, left (Primary Dx); Lung nodule; Renal cell cancer, left Social History Tobacco Use Types Packs/Day Years [...] to sleep or slept in a senior living (including now)? No 06/14/2021 Sex and Gender Information Value Date Recorded Sex Assigned at Not on file Gender Identity Not on file Sexual Orientation Not on file documented as of this encounter Last Filed Vital Signs Vital Sign Reading Time Taken Comments Blood Pressure 144/91 02/01/2024 11:19 AM EDT Pulse 78 02/01/2024 11:19 AM EDT Temperature 36.2 ??C (97.2 ??F) 02/01/2024 1 1:19 AM EDT Respiratory Rate 16 02/01/2024 11:1 9 AM EDT Oxygen Saturation 98% 02/01/2024 11: 19 AM EDT Inhaled Oxygen Concentration - - Weight 109.7 kg (241 lb 13.5 oz) 2023 11:19 AM EDT Height 160 cm (5' 2.99) 02/01/2024 11: 19 AM EDT Body Mass Index 42.85 02/01/2024 11:19 AM EDT documented in this encounter Progress Notes * Arturo Cordero MD - 02/01/2024 11:15 AM EDT Images from the original note were not included. [facility] NOTE REFERING PHYSICIAN: Dr. 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 Positive for PRAME immunostain. NF1 mutation, no BRAF, no CKIT CURRENT TX: Active Surveillance Mitomycin-C eyedrop completed on 09/18/2020 status post excision on 05/14/2020 Left partial nephrectomy on 06/28/[address] 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 Medina - 03/31/2020: saw her sales representative electric service Dr. 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 - 05/14/2020: Underwent excision of the limbal lesion which was positive for melanoma Referred to melanoma clinic on 05/26/2020 to discuss treatment/follow-up options - 06/12/2020: CT Neck/Chest/Abd/Pelvis and MRI brain without evidence of distant metastases Mitomycin-C eyedrop total 3 weeks/every other week completed on 09/18/2020 CT Neck on 12/17/2020 shows no evidence of metastatic disease CT CAP on 12/17/2020 shows no evidence of metastatic disease US of neck on 03/19/2021 shows now suspicious findings CT CAP on 06/24/2021 shows no evidence of metastatic disease CT neck on 12/23/2021 shows no evidence of metastatic disease CT CAP on 12/23/2021 shows no evidence of metastatic disease US of neck on 03/21/2022 shows now suspicious findings CT CAP on 06/23/2022 shows no evidence of metastatic disease CT neck on 12/23/2021 shows no evidence of metastatic disease CT CAP on 12/23/2021 shows no evidence of metastatic disease CT neck on 06/23/2022 shows no evidence of metastatic disease CT CAP on 06/23/2022 shows no evidence of metastatic disease CT neck on 01/06/2023 shows no evidence of metastatic disease CT CAP on 01/06/2023 shows no evidence of metastatic disease CT neck on 08/03/2023 shows no evidence of metastatic disease CT CAP on 08/03/2023 shows no evidence of metastatic disease CT neck on 02/01/2024 shows no evidence of metastatic disease CT CAP on 02/01/2024 shows no evidence of metastatic disease HPI: Alize Gramajo is a 63 y.o. female with past medical history of left-sided renal cell carcinoma s/ppartial nephrectomy, type II diabetes, coronary artery disease, hyperlipidemia, hypertension, depression/anxiety, and TITO, who is presented to the oncology clinic on 05/26/2020 to discuss evaluation/management for her conjunctival melanoma. INTERVAL HISTORY: Ms. Gramajo presents in surveillance of conjunctival melanoma. Overall she is stable including asthma and occasional abdominal discomfort. She has had tried multiple diabetic medications including Ozempic which she did not tolerate well with. Currently she is on Mounjaro from October 2023. She has been seen by Dr. Hernandez. She denies any new masses or lesions of concern. REVIEW OF SYSTEMS: Constitutional: No fever, no fatigue, occasional dizziness. No headache. Eyes: Negative ENT: No hearing change Cardiovascular: Negative Respiratory: Negative Gastrointestinal: Bloating, GERD symptoms Genitourinary: Negative Musculoskeletal: No new joint pain, noted chronic lower back pain Skin: No significant rash Neurological: No focal weakness. Has chronic balance issues, memory issues Psychiatric: stable mood PAST MEDICAL HISTORY: Past Medical History: Diagnosis Date Allergy Antiplatelet or antithrombotic long-term use aspirin, plavix Arthritis Asthma uses inhalerswith good effect Atherosclerosis of chilkoot coronary artery of chilkoot heart with angina pectoris 10/09/2007 History of [...] 3.47) performed by Juanpablo Hernandez MD at [facility] PRO EXCIS CORNEA LESN Left 05/14/2020 EXCISION OF LESION, CORNEA, EXCEPT PTERYGIUM (WRVU 7.5) performed by Juanpablo Hernandez MD at [facility] PRO LAP, PARTIAL NEPHRECTOMY Left 06/28/2019 LAPAROSCOPY, PARTIAL NEPHRECTOMY, ROBOTIC ASSIST (WRVU 27.41) performed by Avila Medina MD at [facility] MAIN OR PRO PLACE AMNIOTIC MEMBRANE OCULAR SURFACE;SINGLE LAYER SUTURED Left 05/14/2020 PLACEMENT OF AMNIOTIC MEMBRANE ON THE OCULAR SURFACE,SINGLE LAYER,SUTURED (WRVU 2.5) performed by Juanpablo Hernandez MD at [facility] MEDS: Alcohol Swabs, (Blood-Glucose Meter,Continuous), Blood-Glucose Sensor, LORazepam, albuteroL, amLODIPine, aspirin EC, blood sugar diagnostic strips, blood-glucose meter, busPIRone, clopidogreL, fluticasone uglfffo-qkkxtfgogagw-bokgoldbsO, fluticasone propionate, inhalational spacing device, insulin glargine, insulin needles (disposable), lamoTRIgine, lancets, loratadine, losartan, melatonin, metFORMIN XR, metoprolol succinate XL, nicotine, nicotine polacrilex, pantoprazole EC, simvastatin, sucralfate, tirzepatide, traZODone, and tretinoin ALLERGY: Allergies Allergen Reactions Codeine Phosphate Nausea And Vomiting Erythromycin Base Nausea Only Azithromycin Ibuprofen Stomach upset Lisinopril cough Nsaids (Non-Steroidal Anti-Inflammatory Drug) Nausea And Vomiting FAMILY HX: Family History Problem Relation Age of Onset Uterine Cancer Mother 76 hysterectomy age 76 Heart Disease Father Kidney Cancer Maternal Grandmother 56 Bladder Cancer Maternal Grandmother 56 Breast Cancer Maternal Aunt Kidney Cancer Maternal Aunt Medical History Unknown Other Cancer Maternal Half-Brother kidney vs pancreatic primary Brain Cancer Paternal Aunt Cancer Paternal Aunt Unknown primary Glaucoma Neg Hx Macular Degeneration Neg Hx Retinal Detachment Neg Hx SOCIAL HX: ETOH: Social Smoking: Current smoker, 1 ppd for 45 years Social History Socioeconomic History Marital status: Spouse name: Not on file Number of children: Not on file Years of education: Not on file Highest education level: Not on file Occupational History Not on file Tobacco Use Smoking status: Every Day Current packs/day: 1.00 Average packs/day: 1 pack/day for 40.0 years (40.0 ttl pk-yrs) Types: Cigarettes Smokeless tobacco: Never Tobacco comments: Not today. Very anxious Vaping Use Vaping status: Never Used Substance and Sexual Activity Alcohol use: No Comment: rare Drug use: No Sexual activity: Not on file Other Topics Concern Not on file Social History Narrative legally from spouse 2012. 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 50+ pack/ yr hx No alcohol One daughter who is a positive support Social Determinants of Health Financial Resource Strain: Medium Risk (06/14/2021) Overall Financial Resource Strain (CARDIA) Difficulty of Paying Living Expenses: Somewhat hard Food Insecurity: No Food Insecurity (06/14/2021) Hunger Vital Sign Worried About Running Out of Food in the Last Year: Never true Ran Out of Food in the Last Year: Never true Transportation Needs: No Transportation Needs (06/14/2021) PRAPARE - Transportation Lack of Transportation (Medical): No Lack of Transportation (Non-Medical): No Physical Activity: Unknown (06/14/2021) Exercise Vital Sign Days of Exercise per Week: 0 days Minutes of Exercise per Session: Not on file Intimate Partner Violence: Not on file Housing Stability: Low Risk (06/14/2021) Housing Stability Vital Sign Unable to Pay for Housing in the Last Year: No Number of Places Lived in the Last Year: 1 Unstable Housing in the Last Year: No Family history: - 2 brother - renal cell carcinoma - brother- pancreatic cancer - mother - uterine cancer in her 70s - maternal aunt - breast cancer - maternal aunt - renal cancer PHYSICAL EXAM: PS=1 General: not in acute distress. BP (!) 144/91 (Patient Position: Sitting) Pulse 78 Temp 36.2 ??C (97.2 ??F) (Temporal) Resp 16 Ht 160 cm (5' 2.99) Wt 109.7 kg (241 lb 13.5 oz) SpO2 98% BMI 42.85 kg/m?? Eyes: Not icteric, No obvious injection or discharge to bilateral eyes. No visible lesion. Oral: Not examined Neck: Supple. No lymphadenopathy. Lungs: Bilaterally clear to auscultation, No wheezing, No crackles Heart: Regular rate and rhythm. Abdomen: Soft, no tenderness, no mass, normal active bowel sounds. Extremities: No significant edema Skin: No rash Neuro: No focal weakness LABS: CBC unremarkable CMP unremarkable with glucose 162 LDH 195 Her last A1c on 12/20/2023 was 9.4 IMAGING STUDIES: CT neck on 02/01/2024 No evidence of malignancy or lymphadenopathy. Chest abdomen pelvic CT scan on 02/01/2024 1. No evidence of metastatic disease in the chest, abdomen and pelvis. 2. Liver steatosis and borderline hepatomegaly. CT neck on 08/03/2023 No masses or lymphadenopathy identified. CT Chest Abdomen Pelvis 08/03/2023 1. Focal nodular pleural thickening is slightly decreased compared to prior and favored benign. 2. No evidence of metastatic disease. CT neck on 01/06/2023 No metastatic disease in the neck. CT Chest Abdomen Pelvis 01/06/2023 1. Focal nodular pleural thickening in the posterior left hemithorax, approximately 8 mm in greatest axial dimension, approximately 2 mm in thickness,favor benign. Attention on follow-up. 2. No definite metastases in the chest, abdomen and pelvis. 3. Liver steatosis and borderline hepatomegaly. CT neck on 06/23/2022 No metastatic disease in the neck. CT Chest Abdomen Pelvis 06/23/2022: 1. Fatty liver changes. 2. No findings for metastatic disease in the chest abdomen or pelvis. 3. Status post left lower pole partial nephrectomy without evidence of local recurrence on this single phase examination. US soft tissue head and neck 03/21/2022: Normal sonographic appearance of bilateral cervical lymph nodes. CT Chest Abdomen Pelvis 12/23/2021 1. No significant interval changes. 2. No metastatic disease in the chest abdomen or pelvis. 3. Post left lower pole partial nephrectomy without evidence of local recurrence on this single phase examination. Please include renal cancer history on future imaging studies for multiphase renal evaluation. 4. Hepatic steatosis. CT Neck Soft Tissue 12/23/2021 No evidence of metastasis within the neck. CT Chest Abdomen Pelvis on 06/24/2021 Stable exam without metastatic disease. Stable diffuse fatty infiltration liver. Stable lipid rich left adrenal adenoma. US Neck Soft Tissue on 03/19/2021 Lymph nodes visualized in the left cervical region demonstrate normal morphology. No suspicious findings. CT Neck Soft Tissue on 12/17/2020 Normal exam, specifically no metastatic disease within the neck. CT CAP on 12/17/2020 Stable exam. No evidence of disease recurrence. Left neck ultrasound on 09/15/2020 No sonographically evident morphologically abnormal lymph nodes identified in the imaged left neck. CT Chest/Abd/Pelvis 06/12/2020 Single 10 mm short axis left paratracheal lymph node. No other pathologically enlarged lymph nodes in the chest, abdomen or pelvis. No pulmonary nodules. Mild diffuse fatty infiltration liver without focal lesion. Stable left lipid rich adrenal adenoma. No recurrence status post partial left nephrectomy. CT Neck w/ Contrast 06/12/2020 No evidence for cervical metastatic disease. MRI Brain w/wout Contrast 06/12/2020 No evidence of intracranial metastasis. ASSESSMENT AND PLAN: Left eye conjunctival melanoma s/p resection on 05/14/2020 without evidence of distant metastases. History of renal cell cancer NF1 mutation, no BRAF, no CKIT Mitomycin-C eyedrop, completed in September 2020 Overall she denies any significant change in her daily activity. Her asthma has been better controlled. She expressed her frustration about difficult weight control despite multiple antidiabetic medications. Today CT scan including neck showed no evidence of disease recurrence. Again liver steatosis was pointed out. I reviewed images by myself. As long as she remains stable I will have her come back in [address] neck chest abdomen pelviswhich will be close to 5 years from resection. Most likely we will going to active surveillance after the next scan if remains negative for recurrent disease or metastasis. The patient was instructed to call us with any new symptoms or concerns. Arturo Cordero MD RTC in [address] Neck Chest abd pelvis documented in this encounter Plan of Treatment Upcoming Encounters Date Type Department Care Team (Late st Contact Info) Description 03/20/2024 9:00 AM EDT TH Visit (TeleHealth) Sleep Center at [facility] [address] [place] [phone] Denisse Hardwick, [facility] 03/20/2024 2:00 PM EDT Clinical Support Family Medicine at [facility] [address] [place] [address] Julia Low [facility] 05/01/2024 11:20 AM EDT Appointment Mammography/[place] [phone] Rodney Padilla MD [address] [place] [address] 05/01/2024 1:45 PM EDT Office [place] [address] Juanpablo Hernandez MD [facility] [place] [address] 01/30/2025 1:30 PM EDT Appointment Hematology [place] [address] 01/30/2025 3:[address] [place] [phone] Arturo Cordero MD [facility] [address] [place] [address] 01/30/2025 4:15 PM EDT Office Visit Hematology [place] [address] Arturo Cordero MD [facility] [address] [place] [address] Scheduled Orders Name Type Priority Associated Diagnoses Orde r Schedule CBC (with Diff) Lab STAT Malignant melanoma of conjunctiva, left Expected: 01/30/2025 (Approximate), Expires: 08/04/2025 Comprehensive metabolic panel (non-fasting) Lab STAT Malignant melanoma of conjunctiva, left Expected: 01/30/2025 (Approximate), Expires: 08/04/2025 Lactate Dehydrogenase Lab STAT Malignant melanoma of conjunctiva, left Expected: 01/30/2025 (Approximate), Expires: 08/04/2025 CT Chest Abdomen Pelvis w Contrast (Generic) Imaging Routine Lung nodule Renal cell cancer, left Expected: 01/30/2025 (Approximate), Expires: 08/04/2025 CT Neck Soft Tissue w Contrast (Generic) Imaging Routine Malignant melanoma of conjunctiva, left Expected: 01/30/2025 (Approximate), Expires: 08/04/2025 documented as of this encounter Visit Diagnoses Diagnosis Malignant melanoma of conjunctiva, left- Primary Lung nodule Solitary pulmonary nodule Renal cell cancer, left documented in this encounter Care Teams Surveyor Geophysical Prospecting Relationship Specialty Start Date End Date Rodney Padilla MD [address] [place] [address] PCP - General 07/18/22 documented as of this encounter
--- OUTSIDE RECORDS SUMMARY | 2024-03-04 21:17 | XMS_ITS | Encounter Summary ---
Author Organization [facility] Address [facility] [place] [address] Care Team Providers Care Adjunct Instructor Chemistry Name Role Phone Rodney Padilla MD Primary Care Provider [phone] Encounter Details Date Type Department Care Team (Latest Contact Info) Description 02/22/2024 Travel Social History Tobacco Use Types Packs/Day [...] EDT TH Visit (TeleHealth) Sleep Center at [facility] [address] [place] [phone] Denisse Hardwick, [facility] 03/20/2024 2:00 PM EDT Clinical Support Family Medicine at [facility] [address] [place] [phone] Julia Low, [facility] 05/01/2024 11:20 AM EDT Appointment Mammography[place] [address] Rodney Padilla MD [address] [place] [address] 05/01/2024 1:45 PM EDT [place] [address] Juanpablo Hernandez MD [facility] [place] [address] 01/30/2025 1:30 PM EDT Appointment [place] [address] 01/30/2025 3:[address] [place] [address] Arturo Cordero MD [facility] DR HEMATOLOGY [place] [address] 01/30/2025 4:15 PM EDT Office Visit [place] [address] Arturo Cordero MD [facility] DR HEMATOLOGY [place] [address] documented as of this encounter Visit Diagnoses Not on filedocumented in this encounter Care Teams Adjunct Instructor Chemistry Relationship Specialty Start Date End Date Rodney Padilla MD [address] [place] [address] PCP - General 07/18/22 documented as of this encounter
--- OUTSIDE RECORDS SUMMARY | 2024-03-04 21:17 | XMS_ITS | Encounter Summary ---
Author Organization [facility] [place] [address] Care Team Providers Care Commercial Mortgage Broker Name Role Phone Rodney Padilla MD Primary Care Provider [phone] Encounter Details Date Type Department Care Team (Late st Contact Info) Description 02/28/2024 Notes Only Sleep Center at [address] [place] [address] Barbra Martínez C, RT Social History Tobacco Use Types Packs/Day Years [...] as of this encounter Progress Notes * Barbra Martínez RT - 02/28/2024 11:27 AM EDT Unable to perform TH with patient, having issues with patients cell phone allowing video and microphone. Rescheduled to 03/20/2024 at 9am with Maddie Hardwick. documented in this encounter Plan of Treatment Upcoming Encounters Date Type Department Care Team (Late st Contact Info) Description 03/20/2024 9:00 AM EDT TH Visit (TeleHealth) Sleep Center at [facility] [address] [place] [phone] Denisse Hardwick [facility] 03/20/2024 2:00 PM EDT Clinical Support Family Medicine at [facility] [address] [place] [phone] Julia Low [facility] 05/01/2024 11:20 AM EDT Appointment Mammography/[place] [phone] Rodney Padilla MD [address] [place] [address] 05/01/2024 1:45 PM EDT Office Visit Ophthalmology at [place] [phone] Juanpablo Hernandez MD [facility] [place] [address] 01/30/2025 1:30 PM EDT Appointment Hematology and Oncology at [place] [address] 01/30/2025 3:[address] Scan at [place] [phone] Arturo Cordero MD [facility] DR [place] [address] 01/30/2025 4:15 PM EDT Office Visit Hematology and Oncology at [place] [phone] Arturo Cordero MD [facility] DR [place] [address] documented as of this encounter Visit Diagnoses Not on filedocumented in this encounter Care Teams Commercial Mortgage Broker Relationship Specialty Start Date End Date Rodney Padilla MD [address] [place] [address] PCP - General 07/18/22 documented as of this encounter
--- OUTSIDE RECORDS SUMMARY | 2024-03-04 21:17 | XMS_ITS | Encounter Summary ---
Author Organization [facility] Address [facility] [place] [address] Care Team Providers Care Aged Or Disabled Carer Name Role Phone Rodney Padilla MD Primary Care Provider [phone] Encounter Details Date Type Department Care Team (Latest Contact Info) Description 09/19/2023 Travel Social History Tobacco Use Types Packs/Day [...] at [facility] [address] [place] [phone] Denisse Hardwick, [facility] 03/20/2024 2:00 PM EDT Clinical Support Family Medicine at [facility] [address] [place] [phone] Julia Low, [facility] 05/01/2024 11:20 AM EDT Appointment Mammography/[place] [address] Rodney Padilla MD [address] [facility] [place], [place] [id number] 05/01/2024 1:45 PM EDT Office [place] [address] Juanpablo Hernandez MD [facility] [place] [address] 01/30/2025 1:30 PM EDT Appointment Hematology [place] [address] 01/30/2025 3:[address] [place] [address] Arturo Cordero MD [facility] DR [place] [address] 01/30/2025 4:15 PM EDT Office Visit Hematology [place] [address] Arturo Cordero MD [facility] DR [place] [address] documented as of this encounter Visit Diagnoses Not on filedocumented in this encounter Care Teams Aged Or Disabled Carer Relationship Specialty Start Date End Date Rodney Padilla MD [address] [place] [address] PCP - General 07/18/22 documented as of this encounter
--- OUTSIDE RECORDS SUMMARY | 2024-03-04 21:17 | XMS_ITS | Encounter Summary ---
Author Organization [facility] [place] [address] Care Team Providers Care Softball Core Molder Name Role Phone Rodney Padilla MD Primary Care Provider [phone]- [phone] Reason for Visit * Reason Comments Follow-up Encounter Details Date Type Department Care Team (Late st Contact Info) Description 12/20/2023 1:30 PM EDT Office Visit Family Medicine at [facility] [address] [place] [phone] Rodney Padilla MD [address] [facility] [place] [address] Type 2 diabetes mellitus without long-term current use of insulin; Essential hypertension; TITO (obstructive sleep apnea); Interstitial lung disease Social History Tobacco Use Types Packs/Day Years [...] Sign Reading Time Taken Comments Blood Pressure 130/78 12/20/2023 1:21 PM EDT Pulse 98 12/20/2023 1:21 PM EDT Temperature - - Respiratory Rate - - Oxygen Saturation 93% 12/20/2023 1:21 PM EDT Inhaled Oxygen Concentration - - Weight 110.3 kg (243 lb 3.2 oz) 12/20/2023 1:21 PM EDT Height 161.3 cm (5' 3.5) 12/20/2023 1:21 PM EDT Body Mass Index 42.4 12/20/2023 1:21 PM EDT documented in this encounter Progress Notes * Rodney Padilla MD - 12/20/2023 1:30 PM EDT Subjective Chart review prior to visit: HPI: Alize Gramajo is a 63 y.o. female, patient who reports for evaluation for follow up on medication for her DM. Pt reports that she hasn't started the Mounjaro yet, but will start it this week. Hasn'ttaken her her trilegy for her interstitial lung disease. Allergies Allergen Reactions Codeine Phosphate Nausea And Vomiting Erythromycin Base Nausea Only Azithromycin Ibuprofen Stomach upset Lisinopril cough Nsaids (Non-Steroidal Anti-Inflammatory Drug) Nausea And Vomiting Current Outpatient Medications on File Prior to Visit Medication Sig Dispense Refill tretinoin (RETIN-A) 0.025 [...] 3 insulin needles, disposable, 32 gauge x 5/ Needle Inject 1 each subcutaneously daily. Indications: diabetes 100 each 11 nicotine (Nicoderm CQ) 21 mg/24 hr Patch 24 hr Change 1 patch on the skin daily. See package instructions 28 patch 1 nicotine polacrilex (Nicorette) 4 mg gum Take 1 each by mouth every 2 hours as needed for Smoking cessation. Nothing but water 15 min before or during use. 100 each 3 fluticasone uakmvqj-qyykahnbgcab-kwolkfsacv (Trelegy Ellipta) 200-62.5-25 mcg Inhale 1 puff into the lungs daily. Rinse mouth after use 1 each 11 fluticasone propionate (Flonase) 50 mcg/actuation [place], Suspension SPRAY 1 SPRAY IN EACH NOSTRIL TWO TIMES A DAY 48 mL 3 lamoTRIgine (LaMICtal) 150 mg tablet Take 150 mg by mouth Daily at Noon. simvastatin (Zocor) 10 mg tablet TAKE ONE TABLET BY MOUTH EVERY DAY 90 tablet 1 Blood-Glucose Meter,Continuous (Dexcom G7 Tube Bending Machine Operator) Misc 1 Device by [facility].(Non- Drug; Combo Route) route continuous. Blood-Glucose Sensor (Dexcom G7 Sensor) Device 1 Device by Mis.(Non-Drug; Combo Route) route every10 days. 3 each 11 Lantus Solostar U-100 Insulin 100 unit/mL (3 mL) pen Inject 18 Units subcutaneously nightly. Inject2-20 units based on BG Indications: type 2 diabetes mellitus inhalational spacing device (Hesham Aerosol Sheridan Enhancer) Spacer 1 each by Misc.(Non-Drug; Combo [...] (E.C.) Take 81 mg by mouth daily. Mounjaro 2.5 mg/0.5 mL Pen Injector Inject 2.5 mg subcutaneously once a week. Indications: type 2 diabetes mellitus (Patient not taking: Reported on 12/20/2023) 2 mL 11 No current facility-administered medications on file prior to visit. Objective BP 130/78 (BP Location (NBP): Left arm, Patient Position: Sitting, BP Cuff Sizes: Large Adult (32-43 cm)) Pulse 98 Ht 161.3 cm (5' 3.5) Wt 110.3 kg (243 lb 3.2 oz) SpO2 93% BMI 42.40 kg/m?? General: NAD HEENT: Normocephalic, normal appearing conjunctiva Pulm: Talking in full sentences, no audible wheezing or grunting Card: Appears clinically well perfused MSK: Moving extremities at random Assessment/Plan There are no diagnoses linked to this encounter. 1) DM2 -Will complete labs, will have patient continue with planned f/u with in house pharmacist for continued management with DM. Advised to attempt the use of the Mounjaro, reviewed next steps if patient doesn't tolerate the medication, pt stated her understanding 2) HTN -Will complete required labs 3) Interstitial lung disease/TITO -Advised to take inhaler as prescribed. Total time on date of encounter was 36 minutes including the any of the following activities as necessary for completion of the visit: Preparing to see pt, review of tests Obtaining and/or reviewing separately obtained history (eg, outside records, caregiver) Counseling and educating the patient/family/caregiver Referring and communicating with other health mall plant caretaker Documenting clinical information in the electronic or other health record Independently interpreting results Care coordination documented in this encounter Plan of Treatment Upcoming Encounters Date Type Department Care Team (Late st Contact Info) Description 03/20/2024 9:00 AM EDT TH Visit (TeleHealth) Sleep Center at [facility] [address] [place] [phone] Denisse Hardwick CORPORATE TECHNICAL RECRU[facility] 03/20/2024 2:00 PM EDT Clinical Support Family Medicine at [facility] [address] [place] [phone] Julia Low [facility] 05/01/2024 11:20 AM EDT Appointment Mammography/[place] [address] Rodney Padilla MD [address] [facility] [place], [place] [id number] 05/01/2024 1:45 PM EDT Office Visit Ophthalmology at [place] [phone] Juanpablo Hernandez MD [facility] [address] 01/30/2025 1:30 PM EDT Appointment Hematology and Oncology at [address] 01/30/2025 3:[address] Scan at [address] Arturo Cordero MD [facility] [place] [address] 01/30/2025 4:15 PM EDT Office Visit Hematology and Oncology at [place] [phone] Arturo Cordero MD [facility] [place] [address] documented as of this encounter Results * U Albumin/Cre Ratio (12/20/2023 2:28 PM EDT) Albumin / Creatinin Ratio, Urine Not Calculated 0 - 29 mcg/mg Cr [facility] Comment: Reference Ranges: <30 mcg/mg: [...] 2, 357? 362 Albumin, Urine <3.0 mg/L [facility] Creatinine, Urine 75 mg/dL [facility] Urine 12/20/2023 2:28 PM EDT 12/20/2023 4:11 PM EDT Narrative Resulting Agency Comment Spec In Lab Rodney Padilla MD URINE ORDERABLES Performing Organization Address City/[facility] Co de Phone Number [facility] [place] [address] * (ABNORMAL) Hemoglobin A1c (12/20/2023 2:14 PM EDT) Hemoglobin A1c 9.4(H) 4.3 - 5.6 % [facility] Comment: Reference Range: 4.3 - [...] Mellitus, Diabetes Care 2013; 36: Suppl. 1, S67-13 Estimated Average Glucose 222 mg/dL [facility] Blood 12/20/2023 2:14 PM EDT 12/20/2023 4:37 PM EDT Narrative Resulting Agency Comment Spec In Lab Rodney Padilla MD CHEMISTRY ORDERABLE S Performing Organization Address City/[facility] Co de Phone Number [facility] [place] [address] documented in this encounter Visit Diagnoses Diagnosis Type 2 diabetes mellitus without long-term current use of insulin Essential hypertension Unspecified essential hypertension TITO (obstructive sleep apnea) Obstructive sleep apnea (adult) (pediatric) Interstitial lung disease Postinflammatory pulmonary fibrosis documented in this encounter Care Teams Softball Core Molder Relationship Specialty Start Date End Date Rodney Padilla MD [address] [facility] [place] [id number] PCP - General 07/18/22 documented as of this encounter
--- OUTSIDE RECORDS SUMMARY | 2024-03-04 21:18 | XMS_ITS | Encounter Summary ---
Author Organization [facility] [place] [address] Care Team Providers Care Director Loan Name Role Phone Rodney Padilla MD Primary Care Provider [phone]- [phone] Reason for Visit * Reason Onset Date Comments Medication Refill 06/16/2023 Encounter Details Date Type Department Care Team (Late Contact Info) Description 06/16/2023 Telephone Family Medicine at [facility] [address] [place] [phone] Rodney Padilla MD [address] [facility] [place] [address] Medication Refill Social History Tobacco Use Types Packs/Day Years [...] encounter Miscellaneous Notes * Telephone Encounter - Zhang Prieto MA - 06/17/2023 5:55 PM EST These medications were sent to patient's pharmacy 03/2023 #90 with 3 refills. My DH message sent to patient to check with pharmacy * Telephone Encounter - Pia Beckett - 06/16/2023 2:07 PM EST Please remind every patient that prescription requests can take up to 72 business hours to process PLEASE REMEMBER TO CHECK IF ANY REFILLS MAY BE REMAINING AT THE PHARMACY Medication Refill Request: Name of Medication: amLODIPine (Norvasc) 5 mg tablet pantoprazole EC (Protonix) [address] tablet Dose as Prescribed: Summary: Take 1 tablet by mouth daily. Summary: Take 1 tablet by mouth daily How many days left: out of the script. Prescriber: Rodney Padilla MD Pharmacy Name & Location: [id number] - [address] [phone] Caller would like clinic to reach out to the Pharmacy: yes Patient declined scheduling an appointment: no Ask caller their first and last name and relationship to the patient: self Best time to call back: yes Ok to leave a message: yes Ok to send [facility] message: yes Did you contact your pharmacy: yes Patient called stating the pharmacy does not have any extra refills for her. documented in this encounter Plan of Treatment Upcoming Encounters Date Type Department Care Team (Late st Contact Info) Description 03/20/2024 9:00 AM EDT TH Visit (TeleHealth) Sleep Center at [facility] [address] [place] [phone] Denisse Hardwick, [facility] 03/20/2024 2:00 PM EDT Clinical Support Family Medicine at [facility] [address] [place] [phone] Julia Low, [facility] 05/01/2024 11:20 AM EDT Appointment Mammography/[place] [phone] Rodney Padilla MD [address] [facility] [place] [address] 05/01/2024 1:45 PM EDT Office [place] [phone] Juanpablo Hernandez MD [facility] [place] [place] [address] 01/30/2025 1:30 PM EDT Appointment Hematology [place] [phone] 01/30/2025 3:[address] [place] [address] Arturo Cordero MD [facility] [place] [address] 01/30/2025 4:15 PM EDT Office Visit Hematology [place] [address] Arturo Cordero MD [facility] [place] [address] documented as of this encounter Visit Diagnoses Not on filedocumented in this encounter Care Teams Director Loan Relationship Specialty Start Date End Date Rodney Padilla MD [address] [place] [address] PCP - General 07/18/22 documented as of this encounter
--- OUTSIDE RECORDS SUMMARY | 2024-03-04 21:18 | XMS_ITS | Encounter Summary ---
Author Organization [facility] Address [facility] [place] [address] Care Team Providers Care Cloth Printer Helper Name Role Phone Rodney Padilla MD Primary Care Provider [phone]- [phone] Encounter Details Date Type Department Care Team (Latest Contact Info) Description 08/03/2023 Travel Social History Tobacco Use Types Packs/Day [...] EDT TH Visit (TeleHealth) Sleep Center at [facility] [address] [place] [phone] Denisse Hardwick, [facility]RICUL[facility] DEVELOPMENT COORDINATOR [facility] 03/20/2024 2:00 PM EDT Clinical Support Family Medicine at [facility] [address] [place] [phone] Julia Low, [facility] 05/01/2024 11:20 AM EDT Appointment Mammography/[place] [address] Rodney Padilla MD [address] [facility] [place], [place] [phone] 05/01/2024 1:45 PM EDT Office [place] [address] [facility] [place] [address] 01/30/2025 1:30 PM EDT Appointment Hematology [place] [address] 01/30/2025 3:[address] [place] [address] [facility] DR HEMATOLOGY [place] [address] 01/30/2025 4:15 PM EDT Office Visit Hematology [place] [address] [facility] DR HEMATOLOGY [place] [address] documented as of this encounter Visit Diagnoses Not on filedocumented in this encounter Care Teams Cloth Printer Helper Relationship Specialty Start Date End Date Rodney Padilla MD [address] [place] [address] PCP - General 07/18/22 documented as of this encounter
--- OUTSIDE RECORDS SUMMARY | 2024-03-04 21:18 | XMS_ITS | Encounter Summary ---
Author Organization [facility] Address [facility] [place] [address] Care Team Providers Care Denial Resolution Specialist Name Role Phone Rodney Padilla MD Primary Care Provider [phone]- [phone] Encounter Details Date Type Department Care Team (Latest Contact Info) Description 04/17/2023 Travel Social History Tobacco Use Types Packs/Day [...] Visit (TeleHealth) Sleep Center at [facility] [address] [place] [phone] Denisse Hardwick, BILLPOSTING SUPERVISOR [facility] 03/20/2024 2:00 PM EDT Clinical Support Family Medicine at [facility] [address] [place] [phone] Julia Low, [facility] 05/01/2024 11:20 AM EDT Appointment Mammography/[place] [address] Rodney Padilla MD [address] [facility] [place], [place] [phone] 05/01/2024 1:45 PM EDT Office [place] [address] Juanpablo Hernandez MD [facility] [place] [address] 01/30/2025 1:30 PM EDT Appointment Hematology [place] [address] 01/30/2025 3:[address] [place] [address] Arturo Cordero MD [facility] DR HEMATOLOGY [place] [address] 01/30/2025 4:15 PM EDT Office Visit Hematology [place] [address] Arturo Cordero MD [facility] DR HEMATOLOGY [place] [address] documented as of this encounter Visit Diagnoses Not on filedocumented in this encounter Care Teams Denial Resolution Specialist Relationship Specialty Start Date End Date Rodney Padilla MD [address] [place] [address] PCP - General 07/18/22 documented as of this encounter
--- OUTSIDE RECORDS SUMMARY | 2024-03-04 21:18 | XMS_ITS | Encounter Summary ---
Author Organization [facility] Address [facility] [place] [address] Care Team Providers Care Bankruptcy Law Specialist Name Role Phone Rodney Padilla MD Primary Care Provider [phone] Encounter Details Date Type Department Care Team (Late st Contact Info) Description 08/11/2023 Orders Only Hematology [place] [address] Arturo Cordero MD [facility] [address] [place] [address] Social History Tobacco Use Types Packs/Day Years [...] EDT TH Visit (TeleHealth) Sleep Center at [facility] [address] [place] [phone] Denisse Hardwick, [facility] 03/20/2024 2:00 PM EDT Clinical Support Family Medicine at [facility] [address] [place] [address] Julia Low, [facility] 05/01/2024 11:20 AM EDT Appointment Mammography/[place] [address] Rodney Padilla MD [address] [facility] [place], [place] [phone] 05/01/2024 1:45 PM EDT Office [place] [address] Juanpablo Hernandez MD [facility] [place] [address] 01/30/2025 1:30 PM EDT Appointment Hematology [place] [address] 01/30/2025 3:[address] [place] [address] Arturo Cordero MD [facility] [place] [address] 01/30/2025 4:15 PM EDT Office Visit Hematology [place] [address] Arturo Cordero MD [facility] [address] [place] [address] documented as of this encounter Visit Diagnoses Not on filedocumented in this encounter Care Teams Bankruptcy Law Specialist Relationship Specialty Start Date End Date Rodney Padilla MD [address] [place] [address] PCP - General 07/18/22 documented as of this encounter
--- OUTSIDE RECORDS SUMMARY | 2024-03-04 21:18 | XMS_ITS | Encounter Summary ---
Author Organization [facility] Address [facility] [place] [address] Care Team Providers Care Resawyer Name Role Phone Rodrigo Padilla MD Primary Care Provider Reason for Visit * Reason Onset Date Comments Medication Problem 07/05/2023 Dr. Padilla w anted her to call after 3 weeks, she has GI problems, her stomach is very distended, it is like she is starting all over again. She is back on gas-x and sulcrafate 4 times a day. Seems to be making her anxiety and depression worse too. Encounter Details Date Type Department Care Team (Late st Contact Info) Description 07/05/2023 Nurse Triage Family Medicine at [facility] [address] [place] [address] Kaela Rodriges lease administration supervisor Problem (Dr. Padilla wanted her to call after 3 weeks, she has GI problems, her stomach is very distended, it is like she is starting all over again. She is back on gas-x and sulcrafate 4 times a day. Seems to be making her anxiety and depression worse too.) Social History Tobacco Use Types Packs/Day Years [...] place to sleep or slept in a retirement (including now)? No 06/14/2021 Sex and Gender Information Value Date Recorded Sex Assigned at Not on file Gender Identity Not on file Sexual Orientation Not on file documented as of this encounter Miscellaneous Notes * Telephone Encounter - Kaela Rodriges RN - 07/06/2023 8:54 AM EST Andrew Sherwood Thank you so much for the update. I have follow up with her in July and can see where her BGs are at. Dr. Padilla, this is disappointing, I will do not see her until 08/03, and I think she may be resistant to therapy changes despite her A1c increasing. If her BGs increase, which is likely, I can offer to resume Trulciity at the lower dose she said she tolerated at your last visit, but if she declines I think hernext option is meal time insulin. I will let you know after 08/03 what she agrees to, but we may not be able to get her A1c <7% if she can't continue therapy :( Let me know what you think and how else I can help. Sincerely, Saida Padilla and aSida, Please review and advise. Patient is no longer going to take Trulicity. She feels it is causing herGI symptoms to come back. She is taking 16 units of lantus in the evening and 1000 mg Metformin BID. Her stomach is so distended that she doesn't feel like eating and she can barely zip up her coat. She has not been able to eat as much as she is allowed and her sugars have been lower as a result. She is interested to see what will happen with her sugars once the Trulicity is out of her system. Thank you, Kaela * Telephone Encounter - Kaela Rodriges RN - 07/05/2023 4:51 PM EST Reason for Call: Medication Problem (Dr. Padilla wanted her to call after 3 weeks, she has GI problems, her stomach is very distended, it is like she is starting all over again. She is back on gas-x and sulcrafate 4 times a day. Seems to be making her anxiety and depression worse too.) Brief Health History (Onset, Location, Duration, Characteristics, Aggravating Factors, Relieving Factors/Radiation,Timing, and Severity): TC to patient, verified name and . Not going to take the Trulicity at all anymore. Isn't going to take the 4th dose. Just knows that this is what all these situations are from, the Trulicity. Has been taking the Lantus 16 Units in the evening. And Metformin 1000mg BID. Keeps telling them that she is sensitive to medications. She is curious to see once she gets the Trulicity out of her system, what her sugars will be, because they have been down now. Unable to eat the amount of carbs that Dr. Padilla says that she can have. Ate some yogurt just a little while ago because her sugar was a little low. Has the thing on her arm that lets her know what her sugar is on her phone so she keeps track of it. Her stomach is so distended that she can't even get her jacket zipped up. She doesn't think that Ozempic will be any better because she has been reading about it. She wanted to let Dr. Padilla and Saida know what she has decided and thinks they will agree. Aware message will be sent and we will contact her with any recommendations or changes. Worsening Symptoms: Emphasized symptoms that require emergent/urgent care according to EPIC protocol utilized or other documented decision support tool. Patient able to teach back worsening symptoms and action to take. Patient/Caregiver demonstrates understanding via teach back: Yes Disposition: Data Unavailable * Telephone Encounter - Kaela Rodriges RN - 07/05/2023 4:46 PM EST Copied from [facility] #[id number]. Topic: Triage - Triage >> Jul 05, 2023 4:29 PM Jackie Zuluaga wrote: Symptom: Appetite Change PCP: RODRIGO PADILLA Additional Comments: Patient says that she can't eat while on dulaglutide (Trulicity) 0.75 mg/0.5 mL Pen Injector [[id number]]. She said that it is effecting her gastrointestinal issues. Patient said that she saw a dietitian to check her blood sugar. She would like to speak with someone about this. Please call patient. documented in this encounter Plan of Treatment Upcoming Encounters Date Type Department Care Team (Late st Contact Info) Description 03/20/2024 9:00 AM EDT TH Visit (TeleHealth) Sleep Center at [facility] [address] [place] [phone] Denisse Hardwick, HELP DESK COORDINATOR [facility] 03/20/2024 2:00 PM EDT Clinical Support Family Medicine at [facility] [address] [place] [address] Julia Low [facility] 05/01/2024 11:20 AM EDT Appointment Mammography/DXA at [place] [phone] Rodrigo Padilla MD [address] [place] [address] 05/01/2024 1:45 PM EDT Office Visit Ophthalmology at [place] [address] Juanpablo Hernandez MD [facility] [place] [address] 01/30/2025 1:30 PM EDT Appointment Hematology and Oncology at [place] [address] 01/30/2025 3:[address] Scan at [place] [address] Arturo Cordero MD [facility] DR HEMATOLOGY [place] [address] 01/30/2025 4:15 PM EDT Office Visit Hematology and Oncology at [place] [phone] Arturo Cordero MD [facility] DR HEMATOLOGY [place] [address] documented as of this encounter Visit Diagnoses Not on filedocumented in this encounter Care Teams Resawyer Relationship Specialty Start Date End Date Rodrigo Padilla MD [address] [place] [address] PCP - General 07/18/22 documented as of this encounter
--- OUTSIDE RECORDS SUMMARY | 2024-03-04 21:18 | XMS_ITS | Encounter Summary ---
Author Organization [facility] Address [facility] [place] [address] Care Team Providers Care Tire Fixer Name Role Phone Rodney Padilla MD Primary Care Provider [phone]- [phone] Reason for Visit * Reason Comments Medication Refill Encounter Details Date Type Department Care Team (Late st Contact Info) Description 05/16/2023 Refill Family Medicine at [facility] [address] [place] [address] Tamera Khan APRN [facility] [address] [place] [address] Type 2 diabetes mellitus with hyperglycemia, without long-term current use of insulin Social [...] place to sleep or slept in a m[facility]p (including now)? No 06/14/2021 Sex and Gender Information Value Date Recorded Sex Assigned at Not on file Gender Identity Not on file Sexual Orientation Not on file documented as of this encounter Miscellaneous Notes * Telephone Encounter - Jade Kruse MA - 05/16/2023 3:43 PM EST Prescription Renewal Request Name: Alize Gramajo : 1960 Prescription(s) Requested: Requested Prescriptions Pending Prescriptions Disp Refills freestyle lite strips [Pharmacy Med Name: FREESTYLE LITE TEST STRIP] 300 strip 3 Sig: USE TO TEST THREE TIMES A DAY Date of Encounter last in This Dept (If need an appointment send to secretaries to schedule): 04/17/2023 Randy Next Encounter in This Dept: 05/29/2023 Date of Last Refill (for each medication): Medication category requirements (labs etc): Status of request: refused refilled 02/27/2023 Allergies Allergen Reactions Codeine Phosphate Nausea And Vomiting Erythromycin Base Nausea Only Azithromycin Ibuprofen Stomach upset Lisinopril cough Nsaids (Non-Steroidal Anti-Inflammatory Drug) Nausea And Vomiting Jade Kruse MA 05/16/23 3:44 PM documented in this encounter Plan of Treatment Upcoming Encounters Date Type Department Care Team (Late st Contact Info) Description 03/20/2024 9:00 AM EDT TH Visit (TeleHealth) Sleep Center at [facility] [address] [place] [phone] Denisse Hardwick, [facility] 03/20/2024 2:00 PM EDT Clinical Support Family Medicine at [facility] [address] [place] [phone] Julia Low, [facility] 05/01/2024 11:20 AM EDT Appointment Mammography/[place] [phone] Rodney Padilla MD [address] [facility] [place], [place] [id number] 05/01/2024 1:45 PM EDT Office Visit Ophthalmology at [place] [phone] Juanpablo Hernandez MD [facility] [place] [address] 01/30/2025 1:30 PM EDT Appointment Hematology [place] [address] 01/30/2025 3:[address] [place] [address] Arturo Cordero MD [facility] [place] [address] 01/30/2025 4:15 PM EDT Office Visit Hematology [place] [address] Arturo Cordero MD [facility] [place] [address] documented as of this encounter Visit Diagnoses Diagnosis Type 2 diabetes mellitus with hyperglycemia, without long-term current use of insulin documented in this encounter Care Teams Tire Fixer Relationship Specialty Start Date End Date Rodney Padilla MD [address] [place] [place] [address] PCP - General 07/18/22 documented as of this encounter
--- OUTSIDE RECORDS SUMMARY | 2024-03-04 21:18 | XMS_ITS | Encounter Summary ---
Author Organization [facility] Address [facility] [place] [address] Care Team Providers Care Aids Social Worker Name Role Phone Rodney Padilla MD Primary Care Provider [phone]- [phone] Reason for Visit * Reason Comments Diabetes Encounter Details Date Type Department Care Team (Late st Contact Info) Description 08/18/2023 9:45 AM EST Clinical Support Family Medicine at [facility] [address] [place] [address] Julia Low, [facility] Type 2 diabetes mellitus without [...] this encounter Progress Notes * Julia Low RP - 08/18/2023 9:45 AM EST Clinical Pharmacist Consultation; Julia Low RPH Visit Type: Clinic followup Diabetes Mellitus (DM) & Medication Management Subjective Subjective: Patient ID: Alize Gramajo is a 62 y.o. female She is here to re-establish care for their type II diabetes. 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 3 x weekly. Uses [employer] testing supplies Interested in Dexcom G7, report approved by insurance. Needs to call [employer] [facility] to get an update on shipping Before Brkfast After Brkfast Before Lunch After Lunch Before Supper 5-b 260 6-Aug 260 167 7-Aug 218 217 212 8-Aug 177 192 185 9-Aug 219 AM PHI PM Average 205 205 260 219 167 Lowest 177 192 260 185 167 Highest 219 217 260 260 167 Daily Avg 211 eA1c 9.26024 Prior Averages: 08/26/21 09/09/21 09/24/21 11/14/21 11/03/22 12/01/22 01/03/23 Daily Avg 157 168 131 138 175 153 176 eA1c 8.68562 8.46 7.20 7.44 8.7 7.95 8.75 Acute complications of diabetes: Have you had [...] Current Outpatient Medications Medication Sig Dispense Refill semaglutide (Ozempic) 0.25 mg or 0.5 mg (2 mg/3 mL) Pen Injector Inject 0.25 mg subcutaneously oncea week for 28 days, THEN 0.5 mg once a week. Indications: type 2 diabetes mellitus 3 mL 11 Blood-Glucose Sensor ([employer] G7 Sensor) Device 1 Device by [facility].(Non-Drug; Combo Route) route every10 days. 3 each 11 lamoTRIgine (LaMICtal) 100 mg tablet Take 1.5 tablets by mouth daily. 90 tablet 3 umeclidinium-vilanteroL (Anoro Ellipta) 62.5-25 mcg/actuation Disk with Device Inhale 1 Inhalation into the lungs daily. 3 each 3 inhalational spacing device ([employer] Aerosol [place] Enhancer) Spacer 1 each by [facility].(Non-Drug; Combo Route) route as needed. 1 each 2 lamoTRIgine (LaMICtal) 25 mg tablet Take 50 mg by mouth daily. pm Indications: bipolar disorder in remission sucralfate (Carafate) [...] BY MOUTH EVERY DAY 90 tablet 3 simvastatin (Zocor) 10 mg tablet TAKE ONE TABLET BY MOUTH EVERY DAY 90 tablet 1 metFORMIN XR (Glucophage XR) 500 mg ER 24 hr tablet TAKE 2 TABLETS BY MOUTH TWICE DAILY WITH MEALS 360 tablet 3 Lantus Solostar U-100 Insulin 100 unit/mL (3 mL) pen Inject 10 Units subcutaneously nightly. Inject2-20 units based on BG Indications: type 2 diabetes mellitus (Patient taking differently: Inject 15Units subcutaneously every morning. Inject 2-20 units based on BG Indications: type 2 diabetes melli tus) 15 mL 11 Alcohol Swabs Pads, Medicated Apply 1 each topically daily. 100 each 3 insulin needles, disposable, 32 gauge x 5/32 Needle Inject 1 each subcutaneously daily. Indications: diabetes 100 each 11 nitroGLYcerin (Nitrostat) 0.[address] 1 tablet under the tongue See Admin Instructions. 30 tablet 5 fluticasone propionate (Flonase) 50 mcg/actuation Mead, Suspension 1 spray by Each Nare route 2 times daily. 16 g 11 budesonide-formoteroL (Symbicort) 80-4.5 mcg/actuation HFA Aerosol Inhaler Inhale 2 puffs into the lungs 2 times daily. 3 each 3 FreeStyle Lancets 28 gauge Misc 1 [...] as needed for Wheezing. 90 mL 1 Nebulizer Accessories Misc 1 each by Misc.(Non-Drug; Combo Route) route every 4 hours as needed (wheezing, cough, or shortness of breath). Supply per insurance preferred quantity 10 each 11 polyethylene glycoL (Miralax) 17 gram Powder in Packet Take 17 g by mouth daily. 14 each 0 traZODone (Desyrel) 100 mg Tablet Take 1 tablet by mouth nightly. 90 tablet 3 aspirin EC 81 mg Tablet, Delayed Release (E.C.) Take 81 mg by mouth daily. No current facility-administered medications for this visit. Most Recent Vitals: BP Readings from Last 3 Encounters: 08/03/23 152/87 12/12/23 170/90 04/17/23 (!) 144/98 BMI Readings from Last 3 Encounters: 08/03/23 44.79 kg/m?? 06/20/23 43.84 kg/m?? 04/17/23 42.34 kg/m?? Wt Readings from Last 3 Encounters: 08/03/23 112.8 kg (248 lb 10.9 oz) 06/20/23 111.4 kg (245 lb 9.6 oz) 04/17/23 107.6 kg (237 lb 3.2 oz) Pertinent Lab values: Lab Results Component Value Date NA 140 08/03/2023 K 4.9 08/03/2023 CL 103 08/03/2023 CO2 27 08/03/2023 BUN 17 08/03/2023 CREATININE 0.82 08/03/2023 GLUCOSE 254 (H) 08/03/2023 GLUCFASTING 116 (H) 06/29/2019 CALCIUM 9.5 08/03/2023 ESTGFR 80 08/03/2023 Last 3 Hemoglobin A1Cs Lab Results Component Value Date HA1C 9.4 (H) 06/20/2023 HA1C 8.5 (A) 02/23/2023 HA1C 9.3 (A) 10/05/2022 Lab Results Component Value Date CHLPL 141 06/20/2023 HDL 41 06/20/2023 CHOLHDL 3.4 06/20/2023 TRIG 96 06/20/2023 LDLCHOL 81 06/20/2023 Immunization history: Immunization status: missing Shingrix Current Immunizations Name Date INFLUENZA 06/20/2023 , 06/07/2022 , 05/31/2021 , 05/06/2020 , 04/09/2019 , 05/08/2015 , 05/10/2007 Pfizer Covid-19 Bivalent 12Yrs+ (Gordon Cap 30mcg) 06/07/2022 Pneumo (PCV-13) 04/09/2019 Pneumo (PPSV-23) 05/10/2007 TD 06/24/2011 , 10/07/2005 , 09/07/2005 TDAP 04/09/2019 , 06/24/2011 Prescription Insurance: No value filed. Assessment and Recommendations: Diabetes Lab Results Component Value Date HA1C 9.4 (H) 06/20/2023 Clinic A1c is not at goal based on referral specified goal of <7% on diabetes regimen consistingof metformin and Lantus. She does fear additional meds and stopped Trulicity due to intolerance OF Note pt's A1c has been elevated consistently since 2019 Appears nonadherent d/t SE. From further review intolerance to Trulicity may have developed around holidays may be able to tolerate Ozempic with a slower dose titration if started now, after holiday season Home glucose has been elevated indicated to trial Ozempic Blood Pressure BP Readings from Last 3 Encounters: 08/03/23 152/87 06/20/23 170/90 04/17/23 (!) 144/98 Clinic BP is not well controlled with antihypertensive regimen consisting of losartan, metoprolol, and amlodipine Would benefit form encouragement to set a quit date Cholesterol: Lipid Panel Lab Results Component Value Date CHLPL 141 06/20/2023 HDL 41 06/20/2023 CHOLHDL 3.4 06/20/2023 TRIG 96 06/20/2023 LDLCHOL 81 06/20/2023 The 10-year ASCVD risk score (Jose Alberto BRADLEY, et al., 2019) is: 27% Values used to calculate the score: Age: 62 years Sex: Female Is Non- : No Diabetic: Yes Tobacco smoker: Yes Systolic Blood Pressure: 152 mmHg Is BP treated: Yes HDL Cholesterol: 41 mg/dL Total Cholesterol: 141 mg/dL Patient's LDL is currently at goal per most recent labs. She is currently prescribed simvastatin. Plan: Treatment changes: Diabetes Medication Regimen at conclusion of 08/18/23 encounter: Metformin XR 500 mg 2 tabs BID Lantus 18 units daily START Ozempic titrate to 0.25 mg once weekly as tolerated (starting at low dose 10 clicks to promote tolerance) Alize was seen today for diabetes. Diagnoses and all orders for this visit: Type 2 diabetes mellitus without long-term current use of insulin - Blood-Glucose Meter,Continuous (Dexcom G7 Coal Carrier) Misc; 1 Device by Misc.(Non-Drug; Combo Route) route continuous. - Blood-Glucose Sensor (Dexcom G7 Sensor) Device; 1 Device by Misc.(Non-Drug; Combo Route) route every 10 days. - Lantus Solostar U-100 Insulin 100 unit/mL (3 mL) pen; Inject 18 Units subcutaneously nightly. Inject 2-20 units based on BG Indications: type 2 diabetes mellitus Counseled on alcohols effect on glucose Efforts to improve adherence to therapy plan (if necessary) will be directed at: Continue SMBG twice daily FBG and before supper while waiting for CGM Called [facility] with patient and confirmed new clinical notes needed Faxed to [facility] and reauthorized Also enrolled in autorefill Follow up in 2 months to review receipt of Dexcom and Ozempic tolerance Pt verbalized agreement and understanding of plan with no further questions at this time. Pt understands IF NO CPA ON FILE no changes to current drug regimen were made at the appointment and that RPhis providing recommendations for provider review and follow up. Julia Low RPH 08/18/23 Total time spent: 45 minutes documented in this encounter Plan of Treatment Upcoming Encounters Date Type Department Care Team (Late st Contact Info) Description 03/20/2024 9:00 AM EDT TH Visit (TeleHealth) Sleep Center [facility] [address] [place] [phone] Denisse Hardwick, [facility] 03/20/2024 2:00 PM EDT Clinical Support Family [facility] [address] [place] [phone] Julia Low [facility] 05/01/2024 11:20 AM EDT Appointment Mammography/[place] [address] Rodney Padilla MD [address] [place] [address] 05/01/2024 1:45 PM EDT Office [place] [address] Juanpablo Hernandez MD [facility] [place] [address] 01/30/2025 1:30 PM EDT Appointment Hematology [place] [address] 01/30/2025 3:[address] [place] [address] Arturo Cordero MD [facility] DR [place] [address] 01/30/2025 4:15 PM EDT Office Visit Hematology [place] [address] Arturo Cordero MD [facility] DR [place] [address] documented as of this encounter Visit Diagnoses Diagnosis Type 2 diabetes mellitus without long-term current use of insulin- Primary documented in this encounter Care Teams Aids Social Worker Relationship Specialty Start Date End Date Rodney Padilla MD [address] [place] [address] PCP - General 07/18/22 documented as of this encounter
--- OUTSIDE RECORDS SUMMARY | 2024-03-04 21:18 | XMS_ITS | Encounter Summary ---
Author Organization [facility] [place] [address] Care Team Providers Care Senior Technical Recruiter Name Role Phone Rodney Padilla MD Primary Care Provider Reason for Visit * Reason Onset Date Comments Prior Authorization 07/12/2023 Dexcom G7 Se nsor Encounter Details Date Type Department Care Team (Late st Contact Info) Description 07/12/2023 Telephone Family Medicine at [facility] [address] [place] [phone] Aida Aguayo, FIRST RESPONDER Prior Authorization (Dexcom G7 Sensor) Social History Tobacco Use Types Packs/Day Years [...] place to sleep or slept in a residential (including now)? No 06/14/2021 Sex and Gender Information Value Date Recorded Sex Assigned at Not on file Gender Identity Not on file Sexual Orientation Not on file documented as of this encounter Miscellaneous Notes * Telephone Encounter - Aida Aguayo CMA - 08/07/2023 12:23 PM EST Submitted Date: 07/26/2022 PA Outcome: PA Not Needed [facility] for Blood Glucose Sensors and Receivers. * Telephone Encounter - Aida Aguayo CMA - 07/26/2023 9:28 AM EST Called insurance. Unable to speak with a fulfillment representative. Resubmitted PA through [facility] Anderson: [id number] * Telephone Encounter - Arlene Palomo CMA - 07/14/2023 10:53 AM EST Images from the original note were not included. PA resubmitted to the insurance with the complete member ID number. Anderson [id number] * Telephone Encounter - Aida Aguayo CMA - 07/12/2023 8:45 AM EST PA Submitted Submitted Date: Date Submitted: 07/12/2023 Medication Prior Authorization Patient: Alize Gramajo Patient : 1960 Insurance Company: [employer] Sent via: [facility] Anderson: [id number] Physician: Rodney Padilla MD Medication Requested: Blood-Glucose Sensor (Dexcom G7 Sensor) Device Frequency/Si Device by [facility].(Non-Drug; Combo Route) route every 10 days. Disp: 3 each Refills: 11 Currently taking: no If yes, how long: Diagnosis for this medication: Diabetic polyneuropathy associated with type 2 diabetes mellitus E11.42 Type 2 diabetes mellitus with diabetic neuropathy, with long-term current use of insulin E11.40, Z79.4 Prior medications trialed in this patient: Medication: Trulicity Approx Dates: 04/2023-current Outcome/Adverse Reactions: Inadequate response Medication: Lantus Solostar Approx Dates: 11/2022-current Outcome/Adverse Reactions: Inadequate response Medication: metformin Approx Dates: 03/2019-current Outcome/Adverse Reactions: Inadequate response Additional Notes: Last 3 Hemoglobin A1Cs Lab Results Component Value Date HA1C 9.4 (H) 06/20/2023 HA1C 8.5 (A) 02/23/2023 HA1C 9.3 (A) 10/05/2022 documented in this encounter Plan of Treatment Upcoming Encounters Date Type Department Care Team (Late st Contact Info) Description 03/20/2024 9:00 AM EDT TH Visit (TeleHealth) Sleep Center at [facility] [address] [place] [phone] Denisse Hardwick, [facility] 03/20/2024 2:00 PM EDT Clinical Support Family Medicine at [facility] [address] [place] [phone] Julia Low, [facility] 05/01/2024 11:20 AM EDT Appointment Mammography/DXA at [place] [phone] Rodney Padilla MD [address] [place] [address] 05/01/2024 1:45 PM EDT Office Visit Ophthalmology at [place] [address] Juanpablo Hernandez MD [facility] [place] [address] 01/30/2025 1:30 PM EDT Appointment Hematology and Oncology at [place] [address] 01/30/2025 3:[address] Scan at [place] [address] Arturo Cordero MD [facility] [place] [address] 01/30/2025 4:15 PM EDT Office Visit Hematology and Oncology at [place] [phone] Arturo Cordero MD [facility] [address] [place] [address] documented as of this encounter Visit Diagnoses Not on filedocumented in this encounter Care Teams Senior Technical Recruiter Relationship Specialty Start Date End Date Rodney Padilla MD [address] [place] [address] PCP - General 07/18/22 documented as of this encounter
--- OUTSIDE RECORDS SUMMARY | 2024-03-04 21:18 | XMS_ITS | Encounter Summary ---
Author Organization [facility] [place] [address] Care Team Providers Care Ict Programmer Name Role Phone Rodney Padilla MD Primary Care Provider [phone]- [phone] Reason for Visit * Reason Onset Date Comments Medication Refill 05/24/2023 Encounter Details Date Type Department Care Team (Late st Contact Info) Description 05/24/2023 Refill Family Medicine at [facility] [address] [place] [phone] Rodney Padilla MD [address] [place] [place] [address] Social History Tobacco Use Types Packs/Day Years [...] encounter Miscellaneous Notes * Telephone Encounter - Lucien Moore, FAWAD - 05/24/2023 11:39 AM EST Prescription Renewal Request Name: Alize Gramajo : 1960 Prescription(s) Requested: Requested Prescriptions Pending Prescriptions Disp Refills losartan (Cozaar) 100 mg tablet 90 tablet 3 Sig: Take 1 tablet by mouth daily. Date of Encounter last in This Dept (If need an appointment send to secretaries to schedule): na Next Encounter in This Dept: 05/29/2023 Date of Last Refill (for each medication): 03/22/23#90/3 Medication category requirements (labs etc): BP Readings from Last 3 Encounters: 04/17/23 (!) 144/98 02/23/23 140/88 02/22/23 130/80 Lab Results Component Value Date CREATININE 0.84 12/29/2022 BUN 17 12/29/2022 NA 140 12/29/2022 K 4.5 12/29/2022 CL 104 12/29/2022 CO2 23 12/29/2022 Lab Results Component Value Date NA 140 12/29/2022 K 4.5 12/29/2022 CL 104 12/29/2022 CO2 23 12/29/2022 BUN 17 12/29/2022 CREATININE 0.84 12/29/2022 GLUCOSE 259 (H) 12/29/2022 GLUCFASTING 116 (H) 06/29/2019 CALCIUM 9.5 12/29/2022 ESTGFR 78 12/29/2022 Status of request: Refused Allergies Allergen Reactions Codeine Phosphate Nausea And Vomiting Erythromycin Base Nausea Only Azithromycin Ibuprofen Stomach upset Lisinopril cough Nsaids (Non-Steroidal Anti-Inflammatory Drug) Nausea And Vomiting Lucien Moore CMA 05/24/23 11:39 AM * Telephone Encounter - Kati Chavez - 05/24/2023 11:19 AM EST Please remind every patient that prescription requests can take up to 72 business hours to process PLEASE REMEMBER TO CHECK IF ANY REFILLS MAY BE REMAINING AT THE PHARMACY Medication Refill Request: Name of Medication: losartan (Cozaar) 100 mg tablet Dose as Prescribed: 10 How many days left: 2 Prescriber: Rodney Padilla MD Pharmacy Name & Location: Caller would like clinic to reach out to the Pharmacy: [facility] [address] Patient declined scheduling an appointment: 06/20/23 next appt Ask caller their first and last name and relationship to the patient: self Best time to call back: any Ok to leave a message: Ok to send [facility] message: Did you contact your pharmacy: Patient states pharmacy says no more refills documented in this encounter Plan of Treatment Upcoming Encounters Date Type Department Care Team ([facility] st Contact Info) Description 03/20/2024 9:00 AM EDT TH Visit (TeleHealth) Sleep Center at [facility] [address] [place] [address] Denisse Hardwick, [facility] 03/20/2024 2:00 PM EDT Clinical Support Family Medicine at [facility] [address] [place] [phone] Julia Low [facility] 05/01/2024 11:20 AM EDT Appointment Mammography/[place] [address] Rodney Padilla MD [address] [place] [address] 05/01/2024 1:45 PM EDT Office Visit Ophthalmology at [place] [phone] Juanpablo Hernandez MD [facility] [place] [address] 01/30/2025 1:30 PM EDT Appointment Hematology and Oncology at [place] [phone] 01/30/2025 3:[address] [place] [address] Arturo Cordero MD [facility] [place] [address] 01/30/2025 4:15 PM EDT Office Visit Hematology and Oncology at [place] [phone] Arturo Cordero MD [facility] [address] [place] [address] documented as of this encounter Visit Diagnoses Not on filedocumented in this encounter Care Teams Ict Programmer Relationship Specialty Start Date End Date Rodney Padilla MD [address] [place] [address] PCP - General 07/18/22 documented as of this encounter
--- OUTSIDE RECORDS SUMMARY | 2024-03-04 21:18 | XMS_ITS | Encounter Summary ---
Author Organization [facility] Address [facility] [place] [address] Care Team Providers Care Blower Operator Name Role Phone Rodney Padilla MD Primary Care Provider [phone]- [phone] Encounter Details Date Type Department Care Team (Latest Contact Info) Description 07/31/2023 Travel Social History Tobacco Use Types Packs/Day [...] EDT TH Visit (TeleHealth) Sleep Center at [facility] [address] [place] [phone] Denisse Hardwick, [employer] 03/20/2024 2:00 PM EDT Clinical Support Family Medicine at [facility] [address] [place] [phone] Julia Low, [facility] 05/01/2024 11:20 AM EDT Appointment Mammography/[place] [address] Rodney Padilla MD [address] [facility] [place], [place] [id number] 05/01/2024 1:45 PM EDT Office [place] [address] Juanpablo Hernandez MD [facility] [place] [address] 01/30/2025 1:30 PM EDT Appointment Hematology [place] [address] 01/30/2025 3:[address] [place] [address] Arturo Cordero MD [facility] [address] [place] [address] 01/30/2025 4:15 PM EDT Office Visit Hematology [place] [address] Arturo Cordero MD [facility] [address] [place] [address] documented as of this encounter Visit Diagnoses Not on filedocumented in this encounter Care Teams Blower Operator Relationship Specialty Start Date End Date Rodney Padilla MD [address] [place] [place] [address] PCP - General 07/18/22 documented as of this encounter
--- OUTSIDE RECORDS SUMMARY | 2024-03-04 21:18 | XMS_ITS | Encounter Summary ---
Author Organization [facility] Address [facility] [place] [address] Care Team Providers Care Welding Manager Name Role Phone Rodney Padilla MD Primary Care Provider [phone]- [phone] Encounter Details Date Type Department Care Team (Latest Contact Info) Description 06/20/2023 Travel Social History Tobacco Use Types Packs/Day [...] EDT TH Visit (TeleHealth) Sleep Center at [facility] [address] [place] [phone] Denisse Hardwick, STORY ANALYST [facility] 03/20/2024 2:00 PM EDT Clinical Support Family Medicine at [facility] [address] [place] [phone] Julia Low, [facility] 05/01/2024 11:20 AM EDT Appointment Mammography/[place] [address] Rodney Padilla MD [address] [facility] [place], [place] [id number] 05/01/2024 1:45 PM EDT Office [place] [address] Juanpablo Hernandez MD [facility] [place] [place] [address] 01/30/2025 1:30 PM EDT Appointment H[place]ology [place] [address] 01/30/2025 3:[address] [place] [address] Arturo Cordero MD [facility] DR HEMATOLOGY [place] [address] 01/30/2025 4:15 PM EDT Office Visit [place]ology [place] [address] Arturo Cordero MD [facility] DR HEMATOLOGY [place] [address] documented as of this encounter Visit Diagnoses Not on filedocumented in this encounter Care Teams Welding Manager Relationship Specialty Start Date End Date Rodney Padilla MD [address] [place] [address] PCP - General 07/18/22 documented as of this encounter
--- OUTSIDE RECORDS SUMMARY | 2024-03-04 21:18 | XMS_ITS | Encounter Summary ---
Author Organization [facility] [place] [address] Care Team Providers Care Retail Marketing Manager Name Role Phone Rodney Padilla MD Primary Care Provider Reason for Referral * Diagnostic Test (Routine) - Closed Specialty Diagnoses / Procedures Referred By Contac t Referred To Contact Radiology Diagnoses Malignant melanoma of conjunctiva, left Procedures CT Neck Soft Tissue w Contrast (Generic) Tee Lara MD [facility] DR HEMATOLOGY/[place] [address] [facility] [place] [address] Referral ID Status Reason Start Date Expiration Date V isits Requested Visits Authorized [id number] Closed Specialty Service Requested 08/03/2023 01/31/2025 1 1 * Diagnostic Test (Routine) - Closed Specialty Diagnoses / Procedures Referred By Contac t Referred To Contact Radiology Diagnoses Malignant melanoma of conjunctiva, left Procedures CT Chest Abdomen Pelvis w Contrast (Generic) Tee Lara MD [facility] DR HEMATOLOGY/[place] [address] [facility] [place] [address] Referral ID Status Reason Start Date Expiration Date V isits Requested Visits Authorized [id number] Closed Specialty Service Requested 08/03/2023 01/31/2025 1 1 Reason for Visit * Reason Comments Follow-up Encounter Details Date Type Department Care Team (Cornelius st Contact Info) Description 08/03/2023 10:15 AM EST Office Visit Hematology [place] [address] Arturo Cordero MD [facility] DR [place] [address] Nidhi Ceballos APRN [facility] [place] [address] Malignant melanoma of conjunctiva, left; Renal cell cancer, left; Lung nodule Social History Tobacco Use Types Packs/Day Years [...] Sign Reading Time Taken Comments Blood Pressure 152/87 08/03/2023 10:14 AM EST Pulse 65 08/03/2023 10:14 AM EST Temperature 36.1 ??C (97 ??F) 08/03/2023 10: 14 AM EST Respiratory Rate 18 08/03/2023 10:1 4 AM EST Oxygen Saturation 100% 08/03/2023 10: 14 AM EST Inhaled Oxygen Concentration - - Weight 112.8 kg (248 lb 10.9 oz) 2023 10:14 AM EST Height 158.7 cm (5' 2.48) 08/03/2023 1 0:14 AM EST Body Mass Index 44.79 08/03/2023 10:14 AM EST documented in this encounter Progress Notes * Tee Lara MD - 08/03/2023 10:15 AM EST Images from the original note were not included. [facility] NOTE REFERING PHYSICIAN: Dr. 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 Positive for PRAME immunostain. NF1 mutation, no BRAF, no CKIT CURRENT TX: Active Surveillance Mitomycin-C eyedrop round 3 out of 3 weeks every other week, finished 09/18/2020 status post excision on 05/14/2020 Left partial nephrectomy on 06/28/[address] Medina for [facility] ONCOLOGIC HX: - years ago: was told that she had pterygium in her L eye and did not need any management - fall 2018: saw a new sand drier and was referred to Dr. 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 Medina - 03/31/2020: saw her sand drier Dr. Hernandez and was noted to have [...] shows no evidence of metastatic disease CT Neck CAP on 08/03/2023 with no evidence of disease recurrence HPI: Alize Gramajo is a 62 y.o. female with past medical history of left-sided renal cell carcinoma s/ppartial nephrectomy, type II diabetes, coronary artery disease, hyperlipidemia, hypertension, depression/anxiety, and TITO, who is presented to the oncology clinic on 05/26/2020 to discuss evaluation/management for her conjunctival melanoma. INTERVAL HISTORY: Ms. Gramajo presents in surveillance of conjunctival melanoma including CT scan. This follow-up was made upon her request every 6-month instead of annual surveillance. Overall she is stable including asthma and occasional abdominal discomfort. She has been seen by Last week. No recurrence of melanoma. She denies any new masses or lesions of concern. REVIEW OF SYSTEMS: Constitutional: No fever, no fatigue, occasional dizziness. No headache. Eyes: Negative ENT: No hearing change Cardiovascular: Negative Respiratory: Negative Gastrointestinal: no abdominal pain, discomfort Genitourinary: Negative Musculoskeletal: No new joint pain, noted chronic lower back pain Skin: No significant rash Neurological: No focal weakness. Has chronic balance issues, memory issues Psychiatric: stable mood PAST MEDICAL HISTORY: Past Medical History: Diagnosis Date Allergy Antiplatelet or antithrombotic long-term use aspirin, plavix Arthritis Asthma uses inhalerswith good effect Atherosclerosis of hoh coronary artery of hoh heart with angina pectoris 10/09/2007 History of [...] 3.47) performed by Juanpablo Hernandez MD at [facility] PRO EXCIS CORNEA LESN Left 05/14/2020 EXCISION OF LESION, CORNEA, EXCEPT PTERYGIUM (WRVU 7.5) performed by Juanpablo Hernandez MD at [facility] PRO LAP, PARTIAL NEPHRECTOMY Left 06/28/2019 LAPAROSCOPY, PARTIAL NEPHRECTOMY, ROBOTIC ASSIST (WRVU 27.41) performed by Avila Medina MD at [facility] MAIN OR PRO PLACE AMNIOTIC MEMBRANE OCULAR SURFACE;SINGLE LAYER SUTURED Left 05/14/2020 PLACEMENT OF AMNIOTIC MEMBRANE ON THE OCULAR SURFACE,SINGLE LAYER,SUTURED (WRVU 2.5) performed by Juanpablo Hernandez MD at [facility] MEDS: Alcohol Swabs, Blood-Glucose Sensor, LORazepam, Nebulizer Accessories, albuteroL, amLODIPine, aspirin EC, blood sugar diagnostic strips, blood-glucose meter, budesonide-formoteroL, busPIRone, clopidogreL, dulaglutide, fluticasone propionate, inhalational spacing device, insulin glargine, insulin needles (disposable), lamoTRIgine, lancets, loratadine, losartan, melatonin, metFORMIN XR, metoprolol succinate XL, nitroGLYcerin, pantoprazole EC, polyethylene glycoL, simvastatin, sucralfate, traZODone, and umeclidinium-vilanteroL ALLERGY: Allergies Allergen Reactions Codeine Phosphate Nausea [...] file Tobacco Use Smoking status: Every Day Packs/day: 1.00 Years: 40.00 Additional pack years: 0.00 Total pack years: 40.00 Types: Cigarettes Smokeless tobacco: Never Tobacco comments: Not today. Very anxious Vaping Use Vaping Use: Never used Substance and Sexual Activity Alcohol use: No Drug use: No Sexual activity: Not on file Other Topics Concern Not on file Social History Narrative legally from spouse 2012. 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 BP 152/87 (Patient Position: Sitting) Pulse 65 Temp 36.1 ??C (97 ??F) (Temporal) Resp 18 Ht158.7 cm (5' 2.48) Wt 112.8 kg (248 lb 10.9 oz) SpO2 100% BMI 44.79 kg/m?? Eyes: Not icteric, No obvious injection or discharge to bilateral eyes. No visible lesion. Oral: Not examined Neck: Supple. No lymphadenopathy. Lungs: Bilaterally clear to auscultation, No wheezing, No crackles Heart: Regular rate and rhythm. Abdomen: Soft, no tenderness, no mass, normal active bowel sounds. Extremities: No significant edema Skin: No rash Neuro: No focal weakness LABS: CBC unremarkable other than elevated plts 389 CMP unremarkable except glucose 254 LDH 218 IMAGING STUDIES: CT of the neck on 08/03/2023 No masses or lymphadenopathy identified. Chest abdomen pelvic CT scan on 08/03/2023 1. Focal nodular pleural thickening is slightly decreased compared to prior and favored benign. 2. No evidence of metastatic disease. CT Chest Abdomen Pelvis 06/23/2022: 1. Fatty [...] cervical metastatic disease. MRI Brain w/wout Contrast 06/12/20: No evidence of intracranial metastasis. ASSESSMENT AND PLAN: Left eye conjunctival melanoma s/p resection on 05/14/2020 without evidence of distant metastases. History of renal cell cancer NF1 mutation, no BRAF, no CKIT Mitomycin-C eyedrop, completed in September 2020 Overall, no significant changes in her health, energy levels. CECILLE of disease on her recent imaging studies. She would like to continue with q6 month CT scans for now. The patient was instructed to call us with any new symptoms or concerns. RTC in [address] scan Tee Lara MD PGY 4 Hem/Onc Fellow [facility] ATTENDING NOTE: Clinically she is doing fairly well. Today surveillance CT scan including neck showed no evidence of obvious disease recurrence or distant metastasis. I reviewed images by myself. After discussion we decided to bring her back in 6 months with surveillance scan. I have seen and examined the patient by myself with Dr. Lara and agree with the above plans described. Arturo Cordero MD documented in this encounter Plan of Treatment Upcoming Encounters Date Type Department Care Team (Late st Contact Info) Description 03/20/2024 9:00 AM EDT TH Visit (TeleHealth) Sleep Center at [facility] [address] [place] [phone] Denisse Hardwick, BUILDING TRADES TEACHER [facility] 03/20/2024 2:00 PM EDT Clinical Support Family Medicine at [facility] [address] [place] [address] Julia Low, [facility] 05/01/2024 11:20 AM EDT Appointment Mammography/DXA at [place] [phone] Rodney Padilla MD [address] [place], [place] [address] 05/01/2024 1:45 PM EDT Office Visit Ophthalmology at [place] [phone] Juanpablo Hernandez MD [facility] [place] [address] 01/30/2025 1:30 PM EDT Appointment Hematology and Oncology at [place] [phone] 01/30/2025 3:[address] Scan at [place] [phone] Arturo Cordero MD [facility] DR [place] [address] 01/30/2025 4:15 PM EDT Office Visit Hematology [place] [address] Arturo Cordero MD [facility] DR [place] [address] documented as of this encounter Results * CT Neck Soft Tissue w Contrast (Generic) (02/01/2024 10:24 AM EDT) WORKSTATION ID [id number] RAD Anatomical Region Laterality Modality Neck, Head [...] who have questions please contact the health acute care surgeon that requested your imaging first. ? Electronically signed by: Dipika Palacios [facility] ([phone]), at 02/02/2024 4:32 PM Narrative 02/02/2024 4:32 PM EDT EXAMINATION: CT [...] patients who have questions please contactthe health acute care surgeon that requested your imaging first. Electronically signed by: Dipika Palacios [facility]([phone]), at 02/02/2024 4:32 PM Arturo Cordero MD IMG CT ORDERABLES * CT Chest Abdomen Pelvis w Contrast (Generic) (02/01/2024 10:24 AM EDT) WORKSTATION ID [id number] RAD Anatomical Region Laterality Modality Abdomen, Pelvis [...] who have questions please contact the health acute care surgeon that requested your imaging first. ? Narrative [...] patients who have questions please contactthe health acute care surgeon that requested your imaging first. Electronically signed by: Leo Camilo MD, [facility]([phone]), at 02/02/2024 9:52 AM Arturo Cordero MD IMG CT ORDERABLES * Lactate Dehydrogenase (02/01/2024 8:19 AM EDT) Lactate Dehydrogenase 195 110 - 220 unit/L [facility] Blood 02/01/2024 8:19 AM EDT 02/01/2024 8:39 AM EDT Narrative Resulting Agency Comment Spec In Lab Arturo Cordero MD CHEMISTRY ORDERABLES [facility] [place] [address] * Comprehensive metabolic panel (non-fasting) (02/01/2024 8:19 AM EDT) Glucose 162 65 - 199 mg/dL [facility] Comment:Diabetes: >=200 mg/d L plus symptoms Blood Urea Nitrogen 14 8 - 18 mg/dL [facility] Creatinine 0.90 0.70 - 1.20 mg/dL [facility] Sodium 140 135 - 145 mmol/L [facility] Potassium 4.7 3.5 - 5.0 mmol/L [facility] Comment: Please note: ??Patients with WBC >100,000 may have falsely elevated Potassium levels. ??For accurate Potassium quantification in these patients send serum separator tube (gold top) for subsequent determinations. ??Contact the Clinical Chemistry Laboratory if there are any questions. Chloride 105 98 - 107 mmol/L [facility] Carbon Dioxide 25 22 - 31 mmol/L [facility] Anion Gap 10 5 - 15 mmol/L [facility] Calcium 9.4 8.5 - 10.5 mg/dL [facility] Protein, Total 6.8 6.1 - 8.0 g/dL [facility] Albumin 4.2 3.2 - 5.2 g/dL [facility] Aspartate Aminotransferase 21 0 - 30 unit/L [facility] Alanine Aminotransferase 28 0 - 30 unit/L [facility] Alkaline Phosphatase 92 35 - 105 unit/L [facility] Bilirubin, Total 0.3 0.2 - 1.3 mg/dL [facility] Est Glomerular Filtration Rate 71 >=60 mL/min/1. 73 m?? [facility] Comment: This patient's estimated GFR was [...] In Lab Arturo Cordero MD CHEMISTRY ORDERABLES [facility] [place] [address] documented in this encounter Visit Diagnoses Diagnosis Malignant melanoma of conjunctiva, left Renal cell cancer, left Lung nodule Solitary pulmonary nodule Malignant melanoma of conjunctiva, left documented in this encounter Care Teams Retail Marketing Manager Relationship Specialty Start Date End Date Rodney Padilla MD [address] [place] [address] PCP - General 07/18/22 documented as of this encounter
--- OUTSIDE RECORDS SUMMARY | 2024-03-04 21:18 | XMS_ITS | Encounter Summary ---
Author Organization [facility] [place] [address] Care Team Providers Care Network Design Architect Name Role Phone Rodney Padilla MD Primary Care Provider [phone] Reason for Visit * Reason Comments Other Leg fluid Diabetes Encounter Details Date Type Department Care Team (Latest Contact Info) Description 04/17/2023 4:00 PM EDT Office Visit Family Medicine at [facility] [address] [place] [phone] Rodney Padilla MD [address] [facility] [place] [address] Edema, unspecified type; Diabetic polyneuropathy associated with type 2 diabetes mellitus; Type 2 diabetes mellitus with diabetic polyneuropathy, with long-term current use of insulin; Skin lesion Social History Tobacco Use Types Packs/Day Years [...] Sign Reading Time Taken Comments Blood Pressure 144/98 04/17/2023 3:58 PM EDT Pulse 71 04/17/2023 3:58 PM EDT Temperature - - Respiratory Rate - - Oxygen Saturation 96% 04/17/2023 3:58 PM EDT Inhaled Oxygen Concentration - - Weight 107.6 kg (237 lb 3.2 oz) 04/17/2023 3:58 PM EDT Height - - Body Mass Index 42.34 02/23/2023 3:02 PM EDT documented in this encounter Progress Notes * Rodney Padilla MD - 04/17/2023 4:00 PM EDT .kjaida * Rodney Padilla MD - 04/17/2023 4:00 PM EDT Subjective Chart review prior to visit: HPI: Alize Gramajo is a 62 y.o. female, patient who reports for evaluation for dm and lower extremity edema. DM: fasting glucose continues to be elevated, high of 220. LE edema: Has been present for several weeks, nothing makes it better, nothing makes it worse, unable to say if its better or worse during anytime of day. This is her third episode in 4 years, last episode required a dose of lasix to resolve. Denies any SOB/chest pain/palpiatons Skin lesion Has been picking at bumps on her chest, reports that they started off as pimples/bumps but became wider as she picked at them. Has been placing home remedy on top of lesions to help with healing. Allergies Allergen Reactions Codeine Phosphate Nausea And Vomiting Erythromycin Base Nausea Only Azithromycin Ibuprofen Stomach upset Lisinopril cough Nsaids (Non-Steroidal Anti-Inflammatory Drug) Nausea And Vomiting Current Outpatient Medications on File Prior to Visit Medication Sig Dispense Refill sucralfate (Carafate) 100 mg/mL Suspension Take 10 [...] TWICE DAILY WITH MEALS 360 tablet 3 albuteroL (Proventil HFA) 90 mcg/actuation HFA Aerosol Inhaler Inhale 2 puffs into the lungs every 4 hours as needed for wheeze. Use with spacer 3 each 3 Lantus Solostar U-100 Insulin 100 unit/mL (3 mL) pen Inject 10 Units subcutaneously nightly. Inject2-20 units based on BG Indications: type 2 diabetes mellitus (Patient taking differently: Inject 15Units subcutaneously every morning. Inject 2-20 units based on BG Indications: type 2 diabetes veronica amaya) 15 mL 11 Alcohol Swabs Pads, Medicated Apply 1 each topically daily. 100 each 3 insulin needles, disposable, 32 gauge x 5/32 Needle Inject 1 each subcutaneously daily. Indications: diabetes 100 each 11 nitroGLYcerin (Nitrostat) 0.[address] 1 tablet under the tongue See Admin Instructions. 30 tablet 5 fluticasone propionate (Flonase) 50 mcg/actuation [place], Suspension 1 spray by Each Nare route [...] tablet by mouth nightly. 90 tablet 3 lamoTRIgine (LaMICtal) 100 mg Tablet Take 1 tablet by mouth daily. 90 tablet 3 aspirin EC 81 mg Tablet, Delayed Release (E.C.) Take 81 mg by mouth daily. nystatin (MYCOSTATIN) 100,000 unit/gram Powder Apply topically 4 times daily. (Patient not taking: Reported on 04/17/2023) 15 g 3 miconazole (Micotin) 2 % Cream Place 1 applicator vaginally nightly. 45 g 0 clotrimazole (Mycelex) 10 mg Tanner Take 1 tablet by mouth 5 times daily. (Patient not taking: Reported on 04/17/2023) 25 Tanner 1 No current facility-administered medications on file prior to visit. Objective BP (!) 144/98 (BP Location (NBP): Right arm, Patient Position: Sitting, BP Cuff Sizes: Large Adult (32-43 cm)) Pulse 71 Wt 107.6 kg (237 lb 3.2 oz) SpO2 96% BMI 42.34 kg/m?? General: NAD HEENT: Normocephalic, normal appearing conjunctiva Pulm: Talking in full sentences, no audible wheezing or grunting Card: B/L +1 pitting edema. MSK: Moving extremities at random Skin: 1 cm lesion, no discharge or erythema. Assessment/Plan There are no diagnoses linked to this encounter. 1) DM -Will increase 18 units, reviewed increase - Will place order for Trulicity, patient advised not to start Trulicity until she has a scheduled visit with either a medical provider, pt stated understanding 2) Edema -Will place order for lasix 20mg, daily for 4 days. 3) Skin lesion -no indication of cellulitis at this time will not start on abx, reviewed RTC vs ED precautions, also reviewed at home treatment, Total time on date of encounter was 36 minutes including the any of the following activities as necessary for completion of the visit: Preparing to see pt, review of tests Obtaining and/or reviewing separately obtained history (eg, outside records, caregiver) Counseling and educating the patient/family/caregiver Referring and communicating with other health ocular care aide Documenting clinical information in the electronic or other health record Independently interpreting results Care coordination documented in this encounter Plan of Treatment Upcoming Encounters Date Type Department Care Team (Late st Contact Info) Description 03/20/2024 9:00 AM EDT TH Visit (TeleHealth) Sleep Center at [facility] [address] [place] [address] Denisse Hardwick, ARMORED SERVICE TECHNICIAN [facility] 03/20/2024 2:00 PM EDT Clinical Support Family Medicine at [facility] [address] [place] [address] Julia Low, [facility] 05/01/2024 11:20 AM EDT Appointment Mammography/DXA at [place] [phone] Rodney Padilla MD [address] [place] [address] 05/01/2024 1:45 PM EDT Office Visit Ophthalmology at [place] [phone] Juanpablo Hernandez MD [facility] [address] [place] [address] 01/30/2025 1:30 PM EDT Appointment Hematology and Oncology at [place] [phone] 01/30/2025 3:[address] Scan at [place] [phone] Arturo Cordero MD [facility] DR HEMATOLOGY [place] [address] 01/30/2025 4:15 PM EDT Office Visit Hematology [place] [phone] Arturo Cordero MD [facility] DR HEMATOLOGY [place] [address] documented as of this encounter Visit Diagnoses Diagnosis Edema, unspecified type Diabetic polyneuropathy associated with type 2 diabetes mellitus Type 2 diabetes mellitus with diabetic polyneuropathy, with long-term current use of insulin Skin lesion Unspecified disorder of skin and subcutaneous tissue documented in this encounter Care Teams Network Design Architect Relationship Specialty Start Date End Date Rodney Padilla MD [address] [place] [address] PCP - General 07/18/22 documented as of this encounter
--- OUTSIDE RECORDS SUMMARY | 2024-03-04 21:18 | XMS_ITS | Encounter Summary ---
Author Organization [facility] Address One [facility] [place] [address] Care Team Providers Care Tool Machine Setup Operator Name Role Phone Rodney Padilla MD Primary Care Provider Reason for Visit * Reason Onset Date Comments Diabetes 05/29/2023 Encounter Details Date Type Department Care Team (Late st Contact Info) Description 05/29/2023 9:45 AM EST Telephone Family Medicine at [facility] [address] [place] [phone] Julia Low, [facility] Diabetes Social History Tobacco Use Types Packs/Day Years [...] encounter Miscellaneous Notes * Telephone Encounter - Julia Low RPH - 06/13/2023 3:07 PM EST Connected with pt 06/13/23 Pt confirmed her Lantus and metformin dosing but had not started Trulicity until she discussed withthis caller. Also is following with a neuropsychologist but admits her BGs are not currently good because she has been sick for the past 6 weeks and has bee on steroid therapies Counseled pt to start Trulicity today to review tolerance at PCP appointment next week Pt read directions for Trulicity during phone call to walk through dosing during call. Will follow up with pt in one month to review tolerance and BGs Julia Low RPH, BCACP 06/13/23 3:15 PM * Telephone Encounter - Julia Low RPH - 05/29/2023 9:53 AM EST Clinical Pharmacist Consultation; Julia Low RPH Visit Type: Telephone Call & [facility] message Subjective: Patient ID: Alize Gramajo is a 62 y.o. female. Phone call completed today for medication follow up. Caller: patient Reason for call: reivew repeated A1c result, reconnect for DM followup LVM and sent [facility] message requesting pt return call to reschedule followup and report home BGs Assessment and Recommendations: Assessment/Plan: Chart review reveals pt has needed to increase Lantus to 18 units during last PCP encounter. Also added Trulciity but directions were nto to start until she had a followup with a provider Would benefit from reviewing what pt is taking and her SMBG log A1c repeate din February did decrease since starting Lantus. Does appear appropriate to continue dosetitration and likely would benefit from PPG coverage with a GLP-1 in the past pt had been prescribed Rybelsus but therapy was limited due to stomach SE. There are no diagnoses linked to this encounter. Diabetes Medication Regimen at conclusion of 05/29/23 encounter: Lantus 18 units daily Metformin XR 500 mg 2 tablets BID Unclear if pt has started Trulicity Follow Up: awaiting pt's return message to schedule followup Julia Low RPH 05/29/23 documented in this encounter Plan of Treatment Upcoming Encounters Date Type Department Care Team (Late st Contact Info) Description 03/20/2024 9:00 AM EDT TH Visit (TeleHealth) Sleep [facility] [address] [place] [phone] Denisse Hardwick [facility] 03/20/2024 2:00 PM EDT Clinical Support Family Medicine [facility] [address] [place] [phone] Julia Low RPH 05/01/2024 11:20 AM EDT Appointment Mammography/[place] [address] Rodney Padilla MD [address] [place] [address] 05/01/2024 1:45 PM EDT Office [place] [address] Juanpablo Hernandez MD [facility] [place] [address] 01/30/2025 1:30 PM EDT Appointment Hematology and Oncology at [place] [address] 01/30/2025 3:[address] Scan at [place] [phone] Arturo Cordero MD [facility] [place] [address] 01/30/2025 4:15 PM EDT Office Visit Hematology [place] [address] Arturo Cordero MD [facility] [place] [address] documented as of this encounter Visit Diagnoses Not on filedocumented in this encounter Care Teams Tool Machine Setup Operator Relationship Specialty Start Date End Date Rodney Padilla MD [address] [place] [address] PCP - General 07/18/22 documented as of this encounter
--- OUTSIDE RECORDS SUMMARY | 2024-03-04 21:18 | XMS_ITS | Encounter Summary ---
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 No 06/14/2021 Sex and Gender Information Value Date Recorded Sex Assigned at Not on file Gender Identity Not on file Sexual Orientation Not on file documented as of this encounter Miscellaneous Notes * Telephone Encounter - Andressa Hernandez - 06/23/2023 4:59 PM EST Copied from CRM #[id number]. Topic: Specialty Dept CRMs - Generic Call >> Jun 20, 2023 3:00 PM Cheri Quinones wrote: Specialist: Rodney Padilla Relationship (if other than patient-full name): Maze Reason for Call: Scheduled PFT 08/18 at 1 PM documented in this encounter Plan of Treatment Upcoming Encounters Date Type Department Care Team (Late st Contact Info) Description 03/20/2024 9:00 AM EDT TH Visit (TeleHealth) Sleep Center at [facility] [address] [place] [address] Denisse Hardwick, HOSPITAL ADMITTING CLERK SLEEP C[facility] 03/20/2024 2:00 PM EDT Clinical Support Family Medicine at [facility] [address] [place] [phone] Julia Low, [facility] 05/01/2024 11:20 AM EDT Appointment Mammography/[place] [phone] Rodney Padilla MD [address] [place] [address] 05/01/2024 1:45 PM EDT Office Visit Ophthalmology at [place] [address] Juanpablo Hernandez MD [facility] [place] [address] 01/30/2025 1:30 PM EDT Appointment Hematology and Oncology at [place] [address] 01/30/2025 3:[address] Scan at [place] [phone] Arturo Cordero MD [facility] DR HEMATOLOGY [place] [address] 01/30/2025 4:15 PM EDT Office Visit Hematology and Oncology at [place] [address] Arturo Cordero MD [facility] DR HEMATOLOGY [place] [address] documented as of this encounter Visit Diagnoses Not on filedocumented in this encounter Care Teams Motorcycle Subassembly Repairer Relationship Specialty Start Date End Date Rodney Padilla MD [address] [place] [address] PCP - General 07/18/22 documented as of this encounter
--- OUTSIDE RECORDS SUMMARY | 2024-03-04 21:18 | XMS_ITS | Encounter Summary ---
Author Organization [facility] [address] Care Team Providers Care Seals Engraver Name Role Phone Rodney Padilla MD Primary Care Provider [phone]- [phone] Encounter Details Date Type Department Care Team (Latest Contact Info) Description 08/18/2023 12:40 PM EST - 08/18/2023 11:59 PM EST Hospital [place] [address] Chronic obstructive pulmonary disease, unspecified COPD type Discharge Disposition: Home Social History Tobacco Use [...] place to sleep or slept in a mcc (including now)? No 06/14/2021 Sex and Gender Information Value Date Recorded Sex Assigned at Not on file Gender Identity Not on file Sexual Orientation Not on file documented as of this encounter Medications at Time of Discharge Medication Sig Dispensed Refills Start Date End Date lamoTRIgine (LaMICtal) 150 mg tablet Take 150 mg by mouth Daily at Noon. 08/17/2023 Blood-Glucose Meter,Continuous (Dexcom G7 Jinriksha Driver) MiscIndications:Type 2 diabetes mellitus with hyperglycemia, without long-term current use of insulin 1 Device by [facility].(Non-Drug; Combo Route) route continuous. 08/18/2023 Blood-Glucose Sensor (Dexcom G7 Sensor) DeviceIndications:Typ e 2 diabetes mellitus with hyperglycemia, without long-term current use of insulin 1 Device by [facility].(Non-Drug; Combo Route) route every 10 days. 3 each 11 08/18/2023 inhalational spacing device (Hesham Aerosol Jessamine Enhancer) SpacerIndications:Chr onic obstructive pulmonary disease, unspecified COPD type 1 each by [facility].(Non-Drug; Combo Route) route as needed. 1 each [...] (E.C.) Take 81 mg by mouth daily. Lantus Solostar U-100 Insulin 100 unit/mL (3 mL) penIndications:type 2 diabetes mellitus Inject 18 Units subcutaneously nightly. Inject 2-20 units based on BG Indications: type 2 diabetes mellitus 08/18/2023 01/30/2024 semaglutide (Ozempic) 0.25 mg or 0.5 mg (2 mg/3 mL) Pen InjectorIndications:t ype 2 diabetes mellitus Inject 0.25 mg subcutaneously once a week for 28 days, THEN 0.5 mg once a week. Indications: type 2 diabetes mellitus 3 mL 11 08/03/2023 10/27/2023 lamoTRIgine (LaMICtal) 100 mg tabletIndications:Bip olar affective disorder in remission Take 1.5 tablets by mouth daily. 90 tablet 3 06/20/2023 08/29/2023 umeclidinium-vilanter oL (Anoro Ellipta) 62.5-25 mcg/actuation Disk with DeviceIndications:Chr onic obstructive pulmonary disease, unspecified COPD type Inhale 1 Inhalation into the lungs daily. 3 each 3 06/20/2023 10/24/2023 clopidogreL (Plavix) 75 mg tablet Take 1 [...] EVERY DAY 90 tablet 3 02/27/2023 02/10/2024 simvastatin (Zocor) 10 mg tabletIndications:Mix ed hyperlipidemia TAKE ONE TABLET BY MOUTH EVERY DAY 90 tablet 1 02/27/2023 08/28/2023 metFORMIN XR (Glucophage XR) 500 mg ER 24 hr tablet TAKE 2 TABLETS BY MOUTH TWICE DAILY WITH MEALS 360 tablet 3 02/20/2023 02/10/2024 Alcohol Swabs Pads, MedicatedIndications: Type 2 diabetes mellitus with hyperglycemia, without long-term current use of insulin Apply 1 each topically daily. 100 each 3 11/07/2022 11/02/2023 insulin needles, disposable, 32 gauge x /32 NeedleIndications:true dunham mellitus Inject 1 each subcutaneously daily. Indications: diabetes 100 each 11 10/05/2022 11/02/2023 nitroGLYcerin (Nitrostat) 0.[address] 1 tablet under the tongue See Admin Instructions. 30 tablet 5 09/26/2022 09/19/2023 fluticasone propionate (Flonase) 50 mcg/actuation [place], Suspension 1 spray by Each Nare route 2 times daily. 16 g 11 09/26/2022 09/28/2023 budesonide-formoteroL (Symbicort) 80-4.5 mcg/actuation HFA Aerosol InhalerIndications:Si mple chronic bronchitis Inhale 2 puffs into the lungs 2 times daily. 3 each 3 06/24/2022 08/29/2023 albuteroL (Proventil, Ventolin) (2.5 mg/3 mL) (0.083 %) Solution for Nebulization Take 3 mLs by nebulization every 4 hours as needed for Wheezing. 90 mL 1 04/12/2022 02/27/2024 Nebulizer Accessories MiscIndications:Simpl e chronic bronchitis 1 each by Misc.(Non-Drug; Combo Route) route every 4 hours as needed (wheezing, cough, or shortness of breath). Supply per insurance preferred quantity 10 each 11 04/08/2022 09/19/2023 polyethylene glycoL (Miralax) 17 gram Powder in PacketIndications:Con stipation, unspecified constipation type Take 17 g by mouth daily. 14 each 09/15/2020 09/19/2023 documented as of this encounter Plan of Treatment Upcoming Encounters Date Type Department Care Team (Late st Contact Info) Description 03/20/2024 9:00 AM EDT TH Visit (TeleHealth) Sleep Center at [facility] [address] [place] [phone] Denisse Hardwick, MASTER AUTOMOTIVE GLASS TECHNICIAN [facility] 03/20/2024 2:00 PM EDT Clinical Support Family Medicine at [facility] [address] [place] [phone] Julia Low, [facility] 05/01/2024 11:20 AM EDT Appointment Mammography/[place] [phone] Rodney Padilla MD [address] [facility] [place] [address] 05/01/2024 1:45 PM EDT Office [place] [phone] Juanpablo Hernandez MD [facility] [place] [address] 01/30/2025 1:30 PM EDT Appointment Hematology [place] [phone] 01/30/2025 3:[address] [place] [address] Arturo Cordero MD [facility] [address] [place] [address] 01/30/2025 4:15 PM EDT Office Visit Hematology [place] [phone] Arturo Cordero MD [facility] [address] [place] [address] documented as of this encounter Procedures Procedure Name Priority Date/Time Associated Diagnosis Comments COMMON PULMONARY FUNCTION TEST Routine 08/18/2023 1:13 PM EST Chronic obstructive pulmonary disease, unspecified COPD type documented in this encounter Results * Pulmonary Function Testing (08/18/2023 1:13 PM EST) FVC Actual Pre-BD 2.15 L COMPAS PFT FVC Pre-BD % of Predicted 74 % COMPAS PFT FVC Predicted 2.92 L COMPAS PFT FVC Lower Limits of Normal 2.18 L COMPAS PFT FVC Pre-BD Z-Score -1.72 COMPAS PFT FEV1 Actual Pre-BD 1.54 L COMPAS PFT FEV1 Pre-BD % of Predicted 67 % COMPAS PFT FEV1 Predicted 2.3 L COMPAS PFT FEV1 Lower Limits of Normal 1.71 L COMPAS PFT FEV1 Pre-BD Z-Score -2.12 COMPAS PFT FEV1 / FVC Actual Pre-BD 72 % COMPAS PFT FEV1/FVC Pre-BD Z-Score -0.96 COMPAS PFT [id number] Actual Pre-BD 0.88 % COMPAS PFT [id number] Predicted 2.06 % COMPAS PFT [id number] Pre-BD % of Predicted 43 % COMPAS PFT [id number] Pre-BD Z-Score -1.92 COMPAS PFT DLCO Hb Actual Pre-BD 11.23 mL/min/mmHg COMPAS PFT DLCO Hb Pre-BD % of Predicted 60 % COMPAS PFT DLCO Hb Predicted 18.87 mL/min/mmHg COMPAS PFT DLCO Hb Pre-BD Z-Score -3.04 COMPAS PFT DLCO UNC ACT PRE-BD 11.40 mL/min/mmHg COMPAS PFT DLCO UNC PRE-BD % of PRED 60 % COMPAS PFT DLCO UNC Predicted 18.87 mL/min/mmHg COMPAS PFT DLCO UNC PRE-BD Z-SCORE -2.96 COMPAS PFT Narrative COMPAS PFT - 08/18/2023 1:13 PM EST FINDINGS: FEV1 and FVC are reduced, FEV1/VC is normal. Diffusion capacity not adjusted for hemoglobin is reduced. IMPRESSION: Spirometry suggests restriction. The presence of restriction or air trapping can be tested by measurement of lung volumes. Moderate reduction in diffusing capacity (DLCO 40 to 60%). Compared to the last study on 12/09/09, the FVC decreased by 0.46 L, the FEV1 decreased by 0.51 L and the DLCO decreased by 33%. Possible restrictive physiology with a low diffusion capacity can be seen in interstitial lung disease, but is not specific. Procedure Note Aris Bucio MD - 08/18/2023 FINDINGS: FEV1 and FVC are reduced, FEV1/VC is normal. Diffusion capacitynot adjusted for hemoglobin is reduced. IMPRESSION: Spirometry suggests restriction. The presence of restrictionor air trapping can be tested by measurement of lung volumes. Moderate reduction in diffusingcapacity (DLCO 40 to 60%). Compared to the last study on 12/09/09, the FVC decreased by 0.46 L,the FEV1 decreased by 0.51 L and the DLCO decreased by 33%. Possible restrictive physiology witha low diffusion capacity can be seen in interstitial lung disease, but is not specific. Rodney Padilla MD PFT ORDERABLES COMPAS PFT documented in this encounter Visit Diagnoses Diagnosis Chronic obstructive pulmonary disease, unspecified COPD type documented in this encounter Care Teams Seals Engraver Relationship Specialty Start Date End Date Rodney Padilla MD [address] [place] [address] PCP - General 07/18/22 documented as of this encounter
--- OUTSIDE RECORDS SUMMARY | 2024-03-04 21:18 | XMS_ITS | Encounter Summary ---
Author Organization Formerly [facility] [place] [address] Care Team Providers Care Zoology Professor Name Role Phone Rodney Padilla MD Primary Care Provider [phone] Reason for Referral * Diagnostic Test (Routine) - Closed Specialty Diagnoses / Procedures Referred By Contac t Referred To Contact Radiology Diagnoses Malignant melanoma of conjunctiva, left Procedures CT Neck Soft Tissue w Contrast (Generic) Arturo Cordero MD [facility] [address] [place] [address] [facility] [place] [address] Referral ID Status Reason Start Date Expiration Date V isits Requested Visits Authorized [id number] Closed Specialty Service Requested 12/29/2022 06/30/2024 1 1 * Diagnostic Test (Routine) - Closed Specialty Diagnoses / Procedures Referred By Contac t Referred To Contact Radiology Diagnoses Malignant melanoma of conjunctiva, left Renal cell cancer, left Procedures CT Chest Abdomen Pelvis w Contrast (Generic) Arturo Cordero MD [facility] [address] [place] [address] [facility] [place] [address] Referral ID Status Reason Start Date Expiration Date V isits Requested Visits Authorized [id number] Closed Specialty Service Requested 12/29/2022 06/30/2024 1 1 Reason for Visit * Diagnostic Test (Routine) - Closed Specialty Diagnoses / Procedures Referred By Contac t Referred To Contact Radiology Diagnoses Malignant melanoma of conjunctiva, left Renal cell cancer, left Procedures CT Chest Abdomen Pelvis w Contrast (Generic) Arturo Cordero MD [facility] [address] [place] [address] [facility] [place] [address] Referral ID Status Reason Start Date Expiration Date V isits Requested Visits Authorized [id number] Closed Specialty Service Requested 12/29/2022 06/30/2024 1 1 Encounter Details Date Type Department Care Team (Latest Contact Info) Description 08/03/2023 7:35 AM EST - 08/03/2023 7:44 AM EST Hospital [place] [address] Arturo Cordero MD [facility] [address] [place] [address] Malignant melanoma of conjunctiva, left; Renal cell cancer, left Discharge Disposition: Home Social History Tobacco [...] Sig Dispensed Refills Start Date End Date inhalational spacing device (Hesham Aerosol [place] Enhancer) SpacerIndications:Chr onic obstructive pulmonary disease, unspecified COPD type 1 each by Misc.(Non-Drug; Combo Route) route [...] (E.C.) Take 81 mg by mouth daily. Blood-Glucose Sensor (Echelon G7 Sensor) DeviceIndications:Typ e 2 diabetes mellitus with hyperglycemia, without long-term current use of insulin 1 Device by [facility].(Non-Drug; Combo Route) route every 10 days. 3 each 11 07/07/2023 08/18/2023 lamoTRIgine (LaMICtal) 100 mg tabletIndications:Bip olar affective [...] WITH MEALS 360 tablet 3 02/20/2023 02/10/2024 Lantus Solostar U-100 Insulin 100 unit/mL (3 mL) penIndications:type 2 diabetes mellitus Inject 10 Units subcutaneously nightly. Inject 2-20 units based on BG Indications: type 2 diabetes mellitus 15 mL 11 01/23/2023 08/18/2023 Alcohol Swabs Pads, MedicatedIndications: Type 2 diabetes mellitus with hyperglycemia, without long-term current use of insulin Apply 1 each topically daily. 100 each 3 11/07/2022 11/02/2023 insulin needles, disposable, 32 gauge x NeedleIndications:true betes mellitus Inject 1 each subcutaneously daily. Indications: diabetes 100 each 11 10/05/2022 11/02/2023 nitroGLYcerin (Nitrostat) 0.[address] 1 tablet under the tongue See Admin Instructions. 30 tablet 5 09/26/2022 09/19/2023 fluticasone propionate (Flonase) 50 mcg/actuation [place], Suspension 1 spray by Each Nare route [...] EDT TH Visit (TeleHealth) Sleep Center at [facility] [address] [place] [phone] Denisse Hardwick, [facility] 03/20/2024 2:00 PM EDT Clinical Support Family Medicine at [facility] [address] [place] [phone] Julia Low, [facility] 05/01/2024 11:20 AM EDT Appointment Mammography/[place] [phone] Rodney Padilla MD [address] [place] [address] 05/01/2024 1:45 PM EDT Office Visit Ophthalmology at [place] [phone] Juanpablo Hernandez MD [facility] [place] [address] 01/30/2025 1:30 PM EDT Appointment Hematology and Oncology at [place] [phone] 01/30/2025 3:[address] [place] [address] Arturo Cordero MD [facility] [place] [address] 01/30/2025 4:15 PM EDT Office Visit Hematology [place] [address] Arturo Cordero MD [facility] [place] [address] documented as of this encounter Procedures Procedure Name Priority Date/Time Associated Diagnosis Comments CT CHEST ABDOMEN PELVIS W CONTRAST (GENERIC) Routine 08/03/2023 9:57 AM EST Malignant melanoma of conjunctiva, left Renal cell cancer, left CT NECK SOFT TISSUE W CONTRAST Routine 08/03/2023 9:57 AM EST Malignant melanoma of conjunctiva, left documented in this encounter Results * CT Neck Soft Tissue w Contrast (Generic) (08/03/2023 9:57 AM EST) Anatomical Region Laterality Modality Neck, Head Computed Tomogra phy Impressions 08/04/2023 9:11 AM EST No masses or lymphadenopathy identified. Thank you for letting us participate in the care of this patient. ??If you are a health care provider and have any questions regarding this report, please contact the number below. ??For patients who have questions please contact the health caretaker grounds that requested your imaging first. ? Narrative 08/04/2023 9:11 AM EST EXAMINATION: CT NECK SOFT TISSUE W CONTRAST (GENERIC) CLINICAL HISTORY: Melanoma, stage >= IIB, monitor; Left eye conjunctiva melanoma treated in May 2020, last CT in January 2023 TECHNIQUE: CT neck performed after the intravenous administration of contrast. . 110 cc of Omnipaque 350 administered. COMPARISON: CT neck 01/06/2023. FINDINGS: The orbits are not included within the [id number]. No masses along the visualized upper aerodigestive tract. The lung apices are clear. Normal parotid and submandibular glands. No lymphadenopathy. No aggressive osseous lesions. Normal thyroid gland. Procedure Note Zain Saxena MD - 08/04/2023 EXAMINATION: CT NECK SOFT TISSUE W CONTRAST (GENERIC) CLINICAL HISTORY: Melanoma, stage >= IIB, monitor; Left eye conjunctivamelanoma treated in May 2020, last CT in January 2023 TECHNIQUE: CT neck performed after the intravenous administration of contrast. . 110cc of Omnipaque 350 administered. COMPARISON: CT neck 01/06/2023. FINDINGS: The orbits are not included within the [id number]. No masses alongthe visualized upper aerodigestive tract. The lung apices are clear. Normalparotid and submandibular glands. No lymphadenopathy. No aggressive osseouslesions. Normal thyroid gland. IMPRESSION No masses or lymphadenopathy identified. Thank you for letting us participate in the care of this patient. If youare a health care provider and have any questions regarding this report,please contact the number below. For patients who have questions please contactthe health caretaker grounds that requested your imaging first. Arturo Cordero MD IMG CT ORDERABLES * CT Chest Abdomen Pelvis w Contrast (Generic) (08/03/2023 9:57 AM EST) Anatomical Region Laterality Modality Abdomen, Pelvis Computed Tomogra phy Impressions 08/03/2023 4:55 PM EST 1. ??Focal nodular pleural thickening is slightly decreased compared to prior and favored benign. 2. ??No evidence of metastatic disease. I have personally reviewed the image(s) and the resident's interpretation and agree with the findings, Zain Izagurire MD at 08/03/2023 4:55 PM Thank you for letting us participate in the care of this patient. ??If you are a health care provider and have any questions regarding this report, please contact the number below. ??For patients who have questions please contact the health caretaker grounds that requested your imaging first. ? Narrative 08/03/2023 4:55 PM EST EXAMINATION: CT CHEST ABDOMEN PELVIS W CONTRAST (GENERIC) CLINICAL HISTORY: Melanoma, stage >= IIB, monitor; Left eye conjunctiva melanoma treated in May 2020, last CT in January 2023 TECHNIQUE: Helical CT of the chest, abdomen, and pelvis following the intravenous administration 110cc of Omnipaque 350. Oral contrast was administered. COMPARISON: CT chest abdomen and pelvis 01/06/2023, 06/23/2022, 01/13/2020 MR abdomen 05/02/2019 FINDINGS: Chest: Lungs and large airways: No lung nodules or focal lung consolidation. The airway is widely patent. Pleura: Minimal left posterior pleural thickening is decreased from CT 01/06/2023 measuring 2 x 7 mm. (Series 306 image 47) . No new pleural thickening or pleural masses. Heart/vasculature: Normal heart size. No pericardial effusion. Calcification of the mitral and aortic valve. Nonocclusive calcified atheroma of the aortic arch and right subclavian artery. Lymph nodes: No enlarged lymph nodes. Mediastinum and bess: Normal. Abdomen/pelvis: Liver: Mild hepatomegaly measuring 18.7 cm CC with diffuse hepatic steatosis. No liver lesions. Bile ducts: Nondilated. Gallbladder: No calcified gallstones. Normal caliber wall. Pancreas: Normal attenuation without ductal dilatation. Spleen: Normal. Adrenals: The right adrenal is normal. Stable nodular thickening of the left adrenal gland This is unchanged since CT 01/13/2020 with signal characteristics consistent with an adenoma on prior MRI. Kidneys: The right kidney is normal. Stable postsurgical appearance of the left kidney status post left inferior lobe partial nephrectomy. No renal masses. Several punctate nonobstructing left inferior pole renal stones are visualized. Symmetric enhancement. No hydronephrosis. Urinary Bladder: Normal. Vasculature: No abdominal aortic aneurysm. Moderate circumferential calcified atheroma of the abdominal aorta through to the bilateral common iliacs. The portal vein is patent. Lymph Nodes: No pathologically enlarged lymph nodes. Bowel: Enteric contrast reaches the ileum. No bowel wall thickening. No dilated loops of bowel. Moderate pancolonic stool burden to the rectum. Normal appendix. Peritoneum and retroperitoneum: No free fluid or loculated fluid collection. No pneumoperitoneum. No mesenteric inflammation. Abdominal wall: Small fat-containing right inguinal hernia. Reproductive organs: Normal. Osseous structures: At T9-T10 there is a posterior calcification with extension into the spinal canal present since 01/13/2020 this is likely a chronic calcified intervertebral disc extrusion. Diffuse anterior flowing osteophytes of T2-T6 consistent with DISH. No acute fracture. There are 2 sclerotic foci at the inferior left sacroiliac joint and superior ramus of the pubis both are likely bone islands. No suspicious osseous lesions. Procedure Note Zain Izaguirre MD - 08/03/2023 EXAMINATION: CT CHEST ABDOMEN PELVIS W CONTRAST (GENERIC) CLINICAL HISTORY: Melanoma, stage >= IIB, monitor; Left eye conjunctivamelanoma treated in May 2020, last CT in January 2023 TECHNIQUE: Helical CT of the chest, abdomen, and pelvis following the intravenous administration 110cc of Omnipaque 350. Oral contrast was administered. COMPARISON: CT chest abdomen and pelvis 01/06/2023, 06/23/2022, 01/13/2020 MR abdomen 05/02/2019 FINDINGS: Chest: Lungs and large airways: No lung nodules or focal lung consolidation. Theairway is widely patent. Pleura: Minimal left posterior pleural thickening is decreased from CT01/06/2023 measuring 2 x 7 mm. (Series 306 image 47) . No new pleural thickening orpleural masses. Heart/vasculature: Normal heart size. No pericardial effusion.Calcification of the mitral and aortic valve. Nonocclusive calcified atheroma of the aorticarch and right subclavian artery. Lymph nodes: No enlarged lymph nodes. Mediastinum and bess: Normal. Abdomen/pelvis: Liver: Mild hepatomegaly measuring 18.7 cm CC with diffuse hepaticsteatosis. No liver lesions. Bile ducts: Nondilated. Gallbladder: No calcified gallstones. Normal caliber wall. Pancreas: Normal attenuation without ductal dilatation. Spleen: Normal. Adrenals: The right adrenal is normal. Stable nodular thickening of theleft adrenal gland This is unchanged since CT 01/13/2020 with signalcharacteristics consistent with an adenoma on prior MRI. Kidneys: The right kidney is normal. Stable postsurgical appearance of the left kidney status post leftinferior lobe partial nephrectomy. No renal masses. Several punctate nonobstructingleft inferior pole renal stones are visualized. Symmetric enhancement. No hydronephrosis. Urinary Bladder: Normal. Vasculature: No abdominal aortic aneurysm. Moderate circumferentialcalcified atheroma of the abdominal aorta through to the bilateral common iliacs.The portal vein is patent. Lymph Nodes: No pathologically enlarged lymph nodes. Bowel: Enteric contrast reaches the ileum. No bowel wall thickening. Nodilated loops of bowel. Moderate pancolonic stool burden to the rectum. Normalappendix. Peritoneum and retroperitoneum: No free fluid or loculated fluidcollection. No pneumoperitoneum. No mesenteric inflammation. Abdominal wall: Small fat-containing right inguinal hernia. Reproductive organs: Normal. Osseous structures: At T9-T10 there is a posterior calcification withextension into the spinal canal present since 01/13/2020 this is likely a chroniccalcified intervertebral disc extrusion. Diffuse anterior flowing osteophytes ofT2-T6 consistent with DISH. No acute fracture. There are 2 sclerotic foci atthe inferior left sacroiliac joint and superior ramus of the pubis both arelikely bone islands. No suspicious osseous lesions. IMPRESSION 1. Focal nodular pleural thickening is slightly decreased compared toprior and favored benign. 2. No evidence of metastatic disease. I have personally reviewed the image(s) and the resident's interpretationand agree with the findings, Zain Izaguirre MD at 08/03/2023 4:55 PM Thank you for letting us participate in the care of this patient. If youare a health care provider and have any questions regarding this report,please contact the number below. For patients who have questions please contactthe health caretaker grounds that requested your imaging first. Arturo Cordero MD IMG CT ORDERABLES documented in this encounter Visit Diagnoses Diagnosis Malignant melanoma of conjunctiva, left Renal cell cancer, left documented in this encounter Administered Medications Inactive Administered Medications - up to 3 most recent administrations Medication Order MAR Action Action Date Dose Rate Site iohexoL (Omnipaque) (350 mg/mL) solution 0-200 mL 0-200 mL, Intravenous, ONCE PRN, 1 dose, Starting on Carolee 08/03/23 at 0959, Until Carolee 08/03/23 at 1001, Per Protocol, Warning Vesicant/Irritant Medication , Radiology Contrast, Routine Given 08/03/2023 10:01 AM EST 110 mLs iohexoL (Omnipaque) (350 mg/mL) solution 0-50 mL 0-50 mL, Oral, ONCE PRN, 1 dose, Starting on Carolee 08/03/23 at 0959, Until Carolee 08/03/23 at 0959, Per Protocol, Warning Vesicant/Irritant Medication , Radiology Contrast, Routine Given 08/03/2023 9:59 AM EST 50 mLs documented in this encounter Care Teams Zoology Professor Relationship Specialty Start Date End Date Rodney Padilla MD [address] [place] [address] PCP - General 07/18/22 documented as of this encounter
--- OUTSIDE RECORDS SUMMARY | 2024-03-04 21:18 | XMS_ITS | Encounter Summary ---
Author Organization [facility] [place] [address] Care Team Providers Care Receiving Lead Name Role Phone Rodrigo Padilla MD Primary Care Provider [phone] Encounter Details Date Type Department Care Team (Late st Contact Info) Description 08/10/2023 Telephone Family Medicine at [facility] [address] [place] [phone] Rodrigo Padilla MD [address] [place] [address] Social History Tobacco Use Types Packs/Day Years [...] encounter Miscellaneous Notes * Telephone Encounter - Renata Benton RN - 08/14/2023 2:51 PM EST Patient identified by Full Name and with [facility] staff. Provided update that this RN would be faxing Clinic Notes documenting information they requested about patient's insulin. Previously given fax number [phone] in this message not correct when attempted to confirm withstaff. New fax number given = [phone]. Requested Clinic Notes faxed to new fax number. Reference Number = [id number] * Telephone Encounter - Ade Irene - 08/10/2023 3:02 PM EST Maryana with [facility] [employer] calling in looking for an update on this. Please call back to discuss. * Telephone Encounter - Jade Kruse MA - 08/10/2023 12:33 PM EST Copied from [facility] #[id number]. Topic: Generic Non-Symptom Based - Generic Call >> Aug 08, 2023 1:00 PM Kalie Stone wrote: Reason: DME PCP: RODRIGO PADILLA Reason for Call: [employer] medical equipment sent request on 08/04 for notes to document patient using insulin, needs an addendum sent stating she uses Lantus Solostar U-100 Insulin 100 unit/mL (3 mL) pen needs more than just a medication list needs it to be in the notes, can be faxed back to fax # [phone] documented in this encounter Plan of Treatment Upcoming Encounters Date Type Department Care Team (Late st Contact Info) Description 03/20/2024 9:00 AM EDT TH Visit (TeleHealth) Sleep Center [facility] [address] [place] [phone] Denisse Hardwick, [facility] 03/20/2024 2:00 PM EDT Clinical Support Family Medicine [facility] [address] [place] [address] Julia Low, [facility] 05/01/2024 11:20 AM EDT Appointment Mammography/[place] [address] Rodrigo Padilla MD [address] [facility] [facility] [place], [place] [id number] 05/01/2024 1:45 PM EDT Office [place] [address] Juanpablo Hernandez MD [facility] [place] [address] 01/30/2025 1:30 PM EDT Appointment Hematology [place] [address] 01/30/2025 3:[address] [place] [address] Arturo Cordero MD [facility] [address] [place] [address] 01/30/2025 4:15 PM EDT Office Visit Hematology [place] [address] Arturo Cordero MD [facility] [address] [place] [address] documented as of this encounter Visit Diagnoses Diagnosis Type 2 diabetes mellitus without long-term current use of insulin documented in this encounter Care Teams Receiving Lead Relationship Specialty Start Date End Date Rodrigo Padilla MD [address] [place] [place] [address] PCP - General 07/18/22 documented as of this encounter
--- OUTSIDE RECORDS SUMMARY | 2024-03-04 21:18 | XMS_ITS | Encounter Summary ---
[place] [address] Care Team Providers Care [place] Name Role Phone Rodney Padilla MD Primary Care Provider [phone] Reason for Referral * Consultation (Routine) - Closed Specialty Diagnoses / Procedures Referred By Gonzalez kumari Referred To Contact Pulmonology Diagnoses Interstitial lung disease Rodney Padilla MD [address] [place] [address] [facility] Pulmonology [address] [place] [phone] Referral ID Status Reason Start Date Expiration Date V isits Requested Visits Authorized [id number] Closed Consult, Test & Treat 08/21/2023 08/20/2024 1 1 Encounter Details Date Type Department Care Team (Late st Contact Info) Description 08/21/2023 Orders Only Family Medicine at [address] [place] [phone] Rodney Padilla MD [address] [place] [address] Interstitial lung disease Social History Tobacco Use [...] place to sleep or slept in a prison (including now)? No 06/14/2021 Sex and Gender Information Value Date Recorded Sex Assigned at Not on file Gender Identity Not on file Sexual Orientation Not on file documented as of this encounter Plan of Treatment Upcoming Encounters Date Type Department Care Team (Late st Contact Info) Description 03/20/2024 9:00 AM EDT TH Visit (TeleHealth) Sleep Center at [facility] [address] [place] [address] Denisse Hardwick, [facility] 03/20/2024 2:00 PM EDT Clinical Support Family Medicine at [facility] [address] [place] [address] Julia Low [facility] 05/01/2024 11:20 AM EDT Appointment Mammography/DXA at [place] [phone] Rodney Padilla MD [address] [place] [address] 05/01/2024 1:45 PM EDT Office Visit Ophthalmology at [address] Juanpablo Hernandez MD [facility] [place] [address] 01/30/2025 1:30 PM EDT Appointment Hematology and Oncology at [place] [phone] 01/30/2025 3:[address] [place] [address] Arturo Cordero MD [facility] [place] [address] 01/30/2025 4:15 PM EDT Office Visit Hematology and Oncology at [place] [phone] Arturo Cordero MD [facility] [place] [address] Scheduled Referrals Name Type Priority Associated Diagnoses Order Schedule Referral to Pulmonology Outpatient Referral Routine Interstitial lung disease Ordered: 08/21/2023 documented as of this encounter Visit Diagnoses Diagnosis Interstitial lung disease Postinflammatory pulmonary fibrosis documented in this encounter Care Teams [place] Relationship Specialty Start Date End Date Rodney Padilla MD [address] [place] [address] PCP - General 07/18/22 documented as of this encounter
--- OUTSIDE RECORDS SUMMARY | 2024-03-04 21:18 | XMS_ITS | Encounter Summary ---
Author Organization [facility] [place] [address] Care Team Providers Care Chemical Process Equipment Operator Name Role Phone Rodney Padilla MD Primary Care Provider [phone]- [phone] Reason for Visit * Reason Onset Date Comments Medication Refill 06/13/2023 Encounter Details Date Type Department Care Team (Late st Contact Info) Description 06/13/2023 Refill Family Medicine at [facility] [address] [place] [address] Rodney Padilla MD [address] [facility] [place] [address] Essential hypertension Social History Tobacco Use Types [...] place to sleep or slept in a detention (including now)? No 06/14/2021 Sex and Gender Information Value Date Recorded Sex Assigned at Not on file Gender Identity Not on file Sexual Orientation Not on file documented as of this encounter Miscellaneous Notes * Telephone Encounter - Cuate Solis PA - 06/13/2023 11:04 AM EST Reviewed as COS. Per chart review, PCP sent #90 day with 3 refills on 03/22/23. Should contact pharmacy for refills. * Telephone Encounter - Coco Dyer MA - 06/13/2023 10:54 AM EST Prescription Renewal Request Name: Alize Chelsea Gramajo : 1960 Prescription(s) Requested: Requested Prescriptions Pending Prescriptions Disp Refills amLODIPine (Norvasc) 5 mg tablet 90 tablet 3 Sig: Take 1 tablet by mouth daily. pantoprazole EC (Protonix) [address] tablet 90 tablet 3 Sig: Take 1 tablet by mouth daily. Date of Encounter last in This Dept (If need an appointment send to secretaries to schedule): 04/17/23 Randy Next Encounter in This Dept: 06/20/2023 Date of Last Refill (for each medication): 03/22/23 Medication category requirements (labs etc): Lab Results Component Value Date NA 140 12/29/2022 K 4.5 12/29/2022 CL 104 12/29/2022 CO2 23 12/29/2022 BUN 17 12/29/2022 CREATININE 0.84 12/29/2022 GLUCOSE 259 (H) 12/29/2022 GLUCFASTING 116 (H) 06/29/2019 CALCIUM 9.5 12/29/2022 ESTGFR 78 12/29/2022 Status of request: Pended Allergies Allergen Reactions Codeine Phosphate Nausea And Vomiting Erythromycin Base Nausea Only Azithromycin Ibuprofen Stomach upset Lisinopril cough Nsaids (Non-Steroidal Anti-Inflammatory Drug) Nausea And Vomiting Coco Dyer MA 06/13/23 10:54 AM * Telephone Encounter - Kaela Chatterjee - 06/13/2023 10:04 AM EST Please remind every patient that prescription requests can take up to 72 business hours to process PLEASE REMEMBER TO CHECK IF ANY REFILLS MAY BE REMAINING AT THE PHARMACY Medication Refill Request: Name of Medication: pantoprazole EC (Protonix) [address] tablet amLODIPine (Norvasc) 5 mg tab Dose as Prescribed: - How many days left: 2 Prescriber: Rodney Padilla MD Pharmacy Name & Location: [facility] [address] [place] [address] Caller would like clinic to reach out to the Pharmacy: Yes Patient declined scheduling an appointment: Last office visit 04/17/2023 Ask caller their first and last name and relationship to the patient: Alize Gramajo Patient Best time to call back: Any Ok to leave a message: - Ok to send my- message: - Did you contact your pharmacy: unknown documented in this encounter Plan of Treatment Upcoming Encounters Date Type Department Care Team (Late st Contact Info) Description 03/20/2024 9:00 AM EDT TH Visit (TeleHealth) Sleep Center at [facility] [address] [place] [address] Denisse Hardwick, [facility] 03/20/2024 2:00 PM EDT Clinical Support Family Medicine [facility] [address] [place] [address] Julia Low, [facility] 05/01/2024 11:20 AM EDT Appointment Mammography/[place] [phone] Rodney Padilla MD [address] [facility] [place] [address] 05/01/2024 1:45 PM EDT Office Visit Ophthalmology at [place] [phone] Juanpablo Hernandez MD [facility] [address] 01/30/2025 1:30 PM EDT Appointment Hematology and Oncology at [place] [phone] 01/30/2025 3:[address] Scan at [place] [phone] Arturo Cordero MD [facility] HEMATOLOGY [place] [address] 01/30/2025 4:15 PM EDT Office Visit Hematology [place] [address] Arturo Cordero MD [facility] HEMATOLOGY [place] [address] documented as of this encounter Visit Diagnoses Diagnosis Essential hypertension Unspecified essential hypertension documented in this encounter Care Teams Chemical Process Equipment Operator Relationship Specialty Start Date End Date Rodney Padilla MD [address] [place] [address] PCP - General 07/18/22 documented as of this encounter
--- OUTSIDE RECORDS SUMMARY | 2024-03-04 21:18 | XMS_ITS | Encounter Summary ---
Author Organization [facility] [place] [address] Care Team Providers Care Carton Machine Operator Name Role Phone Rodney Padilla MD Primary Care Provider [phone]- [phone] Reason for Visit * Reason Comments Melanoma Malignant melanoma o f conjunctiva, left Encounter Details Date Type Department Care Team (Late st Contact Info) Description 07/26/2023 12:30 PM EST Office Visit [place] [address] Juanpablo Hernandez MD [facility] [place] [place] [address] Malignant melanoma of conjunctiva, left; Type 2 [...] * Patient Instructions* Juanpablo Hernandez MD - 07/26/2023 12:30 PM EST Medications: Use eye medications as instructed by [...] Progress Notes * Juanpablo Hernandez MD - 07/26/2023 12:30 PM EST Images from the original note were not included. Encounter Diagnoses Name Primary? 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 with the following ophthalmic problems: Melanoma of conjunctiva OS s/p excision with cryo 05/14/2020 in patient with h/o renal cell carcinoma [...] -No signs of recurrence. Follow for now -Pin point subconj fb pigment longstanding and non progressive. Maco of pigment associated with blood vessel is stable. No new masses or pigmentation findings associated with melanoma. -Discuss sunscreen, glasses, hat and skin protection in the sun. -Continue follow ups with Dr. Arriola and dermatology 02/22/23: Mar 2020: NIDDM with A1C of 9.4: - no evidence of NPDR/PDR 07/26/23 Cataract: Good BCVA, follow, MR given Previous KEITH - inferior punctal plug implant Current smoker but denies orthopnea, Hx of clear cell renal cell carcinoma encouraged to quit Plan: - Follow up with dermatology and heme/onc as planned - Follow up 4-5 months or as needed - Findings and concerns discussed with Alize and she expressed understanding. Upon Return EPF I, Leandra Sy, have performed the documentation for this encounter in the presence of and acting as a scribe for Juanpablo Hernandez MD. I performed the services which were documented by the scribe, and I agree with the accuracy of the documentation in this encounter. Juanpablo Hernandez MD. documented in this encounter Plan of Treatment Upcoming Encounters Date Type Department Care Team (Late st Contact Info) Description 03/20/2024 9:00 AM EDT TH Visit (TeleHealth) Sleep Center at [facility] [address] [place] [phone] Denisse Hardwick, [facility] 03/20/2024 2:00 PM EDT Clinical Support Family Medicine [facility] [address] [place] [address] Julia Low, [facility] 05/01/2024 11:20 AM EDT Appointment Mammography/DXA at [place] [phone] Rodney Padilla MD [address] [facility] [place] [address] 05/01/2024 1:45 PM EDT Office Visit Ophthalmology at [place] [phone] Juanpablo Hernandez MD [facility] [place] [place] [address] 01/30/2025 1:30 PM EDT Appointment Hematology and Oncology at [place] [phone] 01/30/2025 3:[address] Scan at [place] [phone] Arturo Cordero MD [facility] [place] [address] 01/30/2025 4:15 PM EDT Office Visit Hematology and Oncology at [place] [phone] Arturo Cordero MD [facility] [place] [address] documented as of this encounter Visit Diagnoses Diagnosis Malignant melanoma of conjunctiva, left Type 2 diabetes mellitus without long-term current use of insulin documented in this encounter Care Teams Carton Machine Operator Relationship Specialty Start Date End Date Rodney Padilla MD [address] [place] [address] PCP - General 07/18/22 documented as of this encounter
--- OUTSIDE RECORDS SUMMARY | 2024-03-04 21:18 | XMS_ITS | Encounter Summary ---
Author Organization [facility] Address [facility] [place] [address] Care Team Providers Care Retail Field Merchandiser Name Role Phone Rodney Padilla MD Primary Care Provider +1- [phone] Encounter Details Date Type Department Care Team (Latest Contact Info) Description 07/25/2023 Travel Social History Tobacco Use Types Packs/Day [...] EDT TH Visit (TeleHealth) Sleep Center at [facility] [address] [place] [phone] Denisse Hardwick, [facility] 03/20/2024 2:00 PM EDT Clinical Support Family Medicine at [facility] [address] [place] [phone] Julia Low, [facility] 05/01/2024 11:20 AM EDT Appointment Mammography[place] [address] Rodney Padilla MD [address] [facility] [place], [place] [id number] 05/01/2024 1:45 PM EDT Office [place] [address] Juanpablo Hernandez MD [facility] [place] [address] 01/30/2025 1:30 PM EDT Appointment Hematology [place] [address] 01/30/2025 3:[address] [place] [address] Arturo Cordero MD [facility] [place] [address] 01/30/2025 4:15 PM EDT Office Visit Hematology [place] [address] Arturo Cordero MD [facility] [place] [address] documented as of this encounter Visit Diagnoses Not on filedocumented in this encounter Care Teams Retail Field Merchandiser Relationship Specialty Start Date End Date Rodney Padilla MD [address] [place] [address] PCP - General 07/18/22 documented as of this encounter
--- OUTSIDE RECORDS SUMMARY | 2024-03-04 21:18 | XMS_ITS | Encounter Summary ---
Author Organization [facility] Address [facility] [place] [address] Care Team Providers Care Dsp Engineer Name Role Phone Rodney Padilla MD Primary Care Provider [phone]- [phone] Reason for Visit * Reason Comments Diabetes Encounter Details Date Type Department Care Team (Late st Contact Info) Description 08/03/2023 1:30 PM EST TH Visit (TeleHealth) Family Medicine at [facility] [address] [place] [address] Julia Low, [facility] Type 2 diabetes mellitus without long-term current [...] Progress Notes * Julia Low RP - 08/03/2023 1:30 PM EST Clinical Pharmacist Consultation; Julia Low RPH Visit Type: Telehealth phone followup Diabetes Mellitus (DM) Medication Management Subjective Subjective: Patient ID: Alize Gramajo is a 62 y.o. female She is here to re-establish care for their type II diabetes. Length of DM [] New dx Year of diagnosis: unk earliest reports 2018 Diabetic complications: PMH notable for any of the following conditions: Yes [x] CA/Stroke/CAD [] Retinopathy [] CHF [x] Neuropathy [] [...] pain Anxiety Depression The pt is in an action stage of making changes to manage their diabetes Factors causing stress (health, money, job, social) Barriers Identified: Per Patient reports that after [...] - asa 81 mg and clopidogrel -Uses [facility] -Prefers oral therapies to injections but willing to try injectable meds - Trying to get Miralax Diabetes medication regimen: NO LONGER ON Trulicity 0.75 mg once weekly x 3 weeks then had to stop due to SE of dizziness, visual changes, stomach distension. Denies nausea, vomiting Last took 4 weeks ago and symptoms have now returned to baseline Metformin XR 500 mg 2 tabs BID Lantus 16 units daily in PM When Lantus was started on 12/04/22 increased to 3 units on 12/17 and 4 units on 12/30; has gotten confident injecting Prior diabetes therapy trials: Never started Rybelsus or Ozempic d/t fear of stomach SE/FARZAD glimepiride caused hypoglycemia in the afternoon Did not tolerate Tresiba Home Glucose Monitoring are performed sporadically. 3 x weekly. Uses [employer] supplies Has [employer] troy but has never worn and fears being unable to understand the results so elected not to try Interested in Dexcom G7, report approved by insurance. Needs to call [employer] to get an update on shipping Prior Averages: 08/26/21 09/09/21 09/24/21 11/14/21 11/03/22 12/01/22 01/03/23 Daily Avg 157 168 131 138 175 153 176 eA1c 8.08416 8.46 7.20 7.44 8.7 7.95 8.75 Acute [...] [] Polyuria [] Polyphagia [] Other Lifestyle Nutrition/diet history: Appetite: good Meal Plan or Goals: would like to reduce PM snacking after her lorazepam dose Number of meals/day: 3 but reports stress impacting her meals and hunger presents after taking her lorazepam at night Activity: Pt is incorporating routine exercise at this time. Walking outside with dog to relieve stress List any problems/restrictions with exercise: Knee pain Objective Objective: Allergies and Drug intolerance: Allergies Allergen Reactions Codeine Phosphate Nausea And Vomiting Erythromycin Base Nausea Only Azithromycin Ibuprofen Stomach upset Lisinopril cough Nsaids (Non-Steroidal Anti-Inflammatory Drug) Nausea And Vomiting Medication List: Current Outpatient Medications Medication Sig Dispense Refill Blood-Glucose Sensor (Dexcom G7 Sensor) Device 1 Device by [facility].(Non-Drug; Combo Route) route every10 days. 3 each 11 lamoTRIgine (LaMICtal) 100 mg tablet Take 1.5 tablets by mouth daily. 90 tablet 3 umeclidinium-vilanteroL (Anoro Ellipta) 62.5-25 mcg/actuation Disk with Device Inhale 1 Inhalation into the lungs daily. 3 each 3 inhalational spacing device (Hesham Aerosol Winkler Enhancer) Spacer 1 each by [facility].(Non-Drug; Combo Route) route as needed. 1 each 2 lamoTRIgine (LaMICtal) 25 mg tablet Take 50 mg by mouth daily. pm Indications: bipolar disorder in remission dulaglutide (Trulicity) 0.75 mg/0.5 mL Pen Injector Inject 0.5 mLs subcutaneously once a week. Indications: type 2 diabetes mellitus 2 mL 11 sucralfate (Carafate) 100 mg/mL Suspension Take 10 [...] tablet 5 fluticasone propionate (Flonase) 50 mcg/actuation [place], Suspension 1 spray by Each Nare route [...] 08/03/23 152/87 06/20/23 170/90 04/17/23 (!) 144/98 BMI Readings from [...] holiday season Home glucose has been elevated pt agrees to send log following appt for detailed review Blood Pressure BP Readings from Last 3 [...] changes: Diabetes Medication Regimen at conclusion of 08/03/23 encounter: Metformin XR 500 mg 2 tabs BID Lantus 16 units daily START Ozempic 0.25 mg once weekly (starting at low dose 8 clicks to promote tolerance) STOP Trulicity as pt no longer taking d/t SE Alize was seen today for diabetes. Diagnoses and all orders for this visit: Type 2 diabetes mellitus without long-term current use of insulin - semaglutide (Ozempic) 0.25 mg or 0.5 mg (2 mg/3 mL) Pen Injector; Inject 0.25 mg subcutaneously once a week for 28 days, THEN 0.5 mg once a week. Indications: type 2 diabetes mellitus Efforts to improve adherence to therapy plan (if necessary) will be directed at: Continue SMBG twice daily FBG and before supper Follow up in 2-3 weeks to review receipt of Dexcom and Ozempic tolerance Pt verbalized agreement and understanding of plan with no further questions at this time. Pt understands IF NO CPA ON FILE no changes to current drug regimen were made at the appointment and that RPhis providing recommendations for provider review and follow up. Julia Low RPH 08/03/23 Total time spent: 45 minutes documented in this encounter Plan of Treatment Upcoming Encounters Date Type Department Care Team (Late st Contact Info) Description 03/20/2024 9:00 AM EDT TH Visit (TeleHealth) Sleep Center at [facility] [address] [place] [phone] Denisse Hardwick [facility] 03/20/2024 2:00 PM EDT Clinical Support Family Medicine [facility] [address] [place] [address] Julia Low, [facility] 05/01/2024 11:20 AM EDT Appointment Mammography/[place] [address] Rodney Padilla MD [address] [facility] [address] 05/01/2024 1:45 PM EDT Office [place] [address] Juanpablo Hernandez MD [facility] [place] [address] 01/30/2025 1:30 PM EDT Appointment Hematology [place] [address] 01/30/2025 3:[address] [place] [address] Arturo Cordero MD [facility] DR [place] [address] 01/30/2025 4:15 PM EDT Office Visit Hematology [place] [address] Arturo Cordero MD [facility] [address] [place] [address] documented as of this encounter Visit Diagnoses Diagnosis Type 2 diabetes mellitus without long-term current use of insulin- Primary documented in this encounter Care Teams Dsp Engineer Relationship Specialty Start Date End Date Rodney Padilla MD [address] [place] [address] PCP - General 07/18/22 documented as of this encounter
--- OUTSIDE RECORDS SUMMARY | 2024-03-04 21:18 | XMS_ITS | Encounter Summary ---
Author Organization [facility] Address [facility] [address] Care Team Providers Care Piercing Specialist Name Role Phone Rodney Padilla MD Primary Care Provider +1- [phone] Encounter Details Date Type Department Care Team (Latest Contact Info) Description 08/18/2023 Travel Social History Tobacco Use Types Packs/Day [...] Visit (TeleHealth) Sleep Center at [facility] [address] [place] [address] Denisse Hardwick, [facility] 03/20/2024 2:00 PM EDT Clinical Support Family Medicine at [facility] [address] [place] [address] Julia Low, [facility] 05/01/2024 11:20 AM EDT Appointment Mammography/[place] [address] Rodney Padilla MD [address] [facility] [place], [place] [address] 05/01/2024 1:45 PM EDT Office [place] [address] Juanpablo Hernandez MD [facility] [place] [address] 01/30/2025 1:30 PM EDT Appointment Hematology [place] [address] 01/30/2025 3:[address] [place] [address] Arturo Cordero MD [facility] DR HEMATOLOGY [place] [address] 01/30/2025 4:15 PM EDT Office Visit Hematology [place] [address] Arturo Cordero MD [facility] DR HEMATOLOGY [place] [address] documented as of this encounter Visit Diagnoses Not on filedocumented in this encounter Care Teams Piercing Specialist Relationship Specialty Start Date End Date Rodney Padilla MD [address] [place] [address] PCP - General 07/18/22 documented as of this encounter
--- OUTSIDE RECORDS SUMMARY | 2024-03-04 21:18 | XMS_ITS | Encounter Summary ---
Author Organization [facility] [place] [address] Care Team Providers Care City Administrator Name Role Phone Rodney Padilla MD Primary Care Provider [phone]- [phone] Encounter Details Date Type Department Care Team (Latest Contact Info) Description 06/20/2023 2:00 PM EST Office Visit Family Medicine at [facility] [address] [place] [phone] Rodney Padilla MD [address] [place] [address] Diabetic polyneuropathy associated with type 2 diabetes mellitus; Type 2 diabetes mellitus with diabetic neuropathy, with long-term current use of insulin; Essential hypertension; Immunization due; Bipolar affective disorder in remission; Chronic obstructive pulmonary disease, unspecified COPD type; Asthma, unspecified asthma severity, unspecified whether complicated, unspecified whether persistent Social History Tobacco Use Types Packs/Day Years [...] Sign Reading Time Taken Comments Blood Pressure 170/90 06/20/2023 1:53 PM EST Pulse 91 06/20/2023 1:53 PM EST Temperature - - Respiratory Rate - - Oxygen Saturation 96% 06/20/2023 1:53 PM EST Inhaled Oxygen Concentration - - Weight 111.4 kg (245 lb 9.6 oz) 06/20/2023 1:53 PM EST Height - - Body Mass Index 43.84 02/23/2023 3:02 PM EDT documented in this encounter Patient Instructions * Patient Instructions* Rodney Padilla MD - 06/20/2023 2:00 PM EST -Please see Saida in one month -Please discontinue the use of your Symbicort after you receive your ellipita -Please contact the clinic after your third dose of Trulicity so we can increase your dose. -Please complete your labs -Please make appointment for follow up in three months -Please call medicare to ask about how to get a blood pressure cuff that is paid for by insurance documented in this encounter Progress Notes * Rodney Padilla MD - 06/20/2023 2:00 PM EST Subjective Chart review prior to visit: HPI: Alize Gramajo is a 62 y.o. female, patient who reports for evaluation for diabetes follow up has been taking trulicity as prescribed hasn't had any side effects. Reports that she has been eating at night (after midnight), often because she finds herself getting hungry due to her insomnia. Allergies Allergen Reactions Codeine Phosphate Nausea And Vomiting Erythromycin Base Nausea Only Azithromycin Ibuprofen Stomach upset Lisinopril cough Nsaids (Non-Steroidal Anti-Inflammatory Drug) Nausea And Vomiting Current Outpatient Medications on File Prior to Visit Medication Sig Dispense Refill dulaglutide (Trulicity) 0.75 mg/0.5 mL Pen Injector [...] tablet 5 fluticasone propionate (Flonase) 50 mcg/actuation [place], Suspension 1 spray by Each Nare route 2 times daily. 16 g 11 budesonide-formoteroL (Symbicort) 80-4.5 mcg/actuation HFA Aerosol Inhaler Inhale 2 puffs into the lungs 2 times daily. 3 each 3 FreeStyle Lancets 28 gauge Misc 1 each by Other route 3 times daily. Indications: diabetes 100 each11 miconazole (Micotin) 2 % Cream Place 1 applicator vaginally nightly. 45 g 0 melatonin 10 mg Capsule Take 1 capsule [...] on file prior to visit. Objective BP 170/90 (BP Location (NBP): Left arm, Patient Position: Sitting, BP Cuff Sizes: Large Adult (32-43 cm)) Pulse 91 Wt 111.4 kg (245 lb 9.6 oz) SpO2 96% BMI 43.84 kg/m?? General: NAD HEENT: Normocephalic, normal appearing conjunctiva Pulm: Talking in full sentences, no audible wheezing or grunting Card: Appears clinically well perfused MSK: Moving extremities at random Assessment/Plan There are no diagnoses linked to this encounter. 1) DM - Pt tolerating Trulicity, will increase to next higher dose with next script, will contact clinic after she has completed three doses so we can increase dose. - Will transition to taking long acting at night and will take fasting levels in the morning. - Will complete required labs -Will follow up with pharmacist in one month and with PCP in 3 months. 2) COPD/Asthma -Will complete PFT -Will transition to ellipta -Will complete influenza vaccine 3) Bipolar -Pt reports taking 150mg in the morning and 50mg nightly, currently be prescribed healthcare professional in [place] 4) HTN -Will contact medicare on securing access to BP cuff, based on home readings will consider increasing patients medications vs adding HCTZ -Current meds Amlodipine 5mg, Losartan 100mg, metoprolol (S/P Stent) Total time on date of encounter was 36 minutes including the any of the following activities as necessary for completion of the visit: Preparing to see pt, review of tests Obtaining and/or reviewing separately obtained history (eg, outside records, caregiver) Counseling and educating the patient/family/caregiver Referring and communicating with other health resident care manager rn Documenting clinical information in the electronic or other health record Independently interpreting results Care coordination documented in this encounter Plan of Treatment Upcoming Encounters Date Type Department Care Team (Late st Contact Info) Description 03/20/2024 9:00 AM EDT TH Visit (TeleHealth) Sleep Center at [facility] [address] [place] [address] Denisse Hardwick, [facility] 03/20/2024 2:00 PM EDT Clinical Support Family Medicine at [facility] [address] [place] [phone] Julia Low [facility] 05/01/2024 11:20 AM EDT Appointment Mammography/[place] [address] Rodney Padilla MD [address] [place] [address] 05/01/2024 1:45 PM EDT Office Visit Ophthalmology at [place] [phone] Juanpablo Hernandez MD [facility] [address] 01/30/2025 1:30 PM EDT Appointment Hematology [place] [phone] 01/30/2025 3:[address] Scan at [place] [phone] Arturo Cordero MD [facility] [address] [place] [address] 01/30/2025 4:15 PM EDT Office Visit [place]ology [place] [phone] Arturo Cordero MD [facility] [address] [place] [address] documented as of this encounter Procedures Procedure Name Priority Date/Time Associated Diagnosis Comments U ALBUMIN/CRE RATIO Routine 06/20/2023 4 :05 PM EST Essential hypertension Diabetic polyneuropathy associated with type 2 diabetes mellitus HEMOGLOBIN A1C Routine 06/20/2023 3:58 PM EST Essential hypertension Diabetic polyneuropathy associated with type 2 diabetes mellitus LIPID PANEL (REFLEX DIRECT LDL) Routine 06/20/2023 3:58 PM EST Essential hypertension Diabetic polyneuropathy associated with type 2 diabetes mellitus BASIC METABOLIC PANEL Routine 06/20/2023 3:58 PM EST Essential hypertension Diabetic polyneuropathy associated with type 2 diabetes mellitus documented in this encounter Results * Pulmonary [...] PFT FEV1/FVC Pre-BD Z-Score -0.96 COMPAS PFT RYV24-24 Actual Pre-BD 0.88 % COMPAS PFT YCX34-29 Predicted 2.06 % COMPAS PFT FVE10-96 Pre-BD % of Predicted 43 % COMPAS PFT FUW21-74 Pre-BD Z-Score -1.92 COMPAS PFT DLCO Hb [...] [facility]C PRE-BD Z-SCORE -2.96 COMPAS PFT Narrative [facility] PFT - 08/18/2023 1:13 PM EST FINDINGS: [...] not specific. Rodney Padilla MD PFT ORDERABLES [facility] PFT * U Albumin/Cre Ratio (06/20/2023 4:05 PM EST) Albumin / Creatinin Ratio, Urine 6 0 - 29 mcg/mg Cr [facility] Comment: Reference Ranges: <30 mcg/mg: [...] Supplements (2012) 2, 357? 362 Albumin, Urine 7.3 mg/L [facility] Creatinine, Urine 119 mg/dL [facility] Urine 06/20/2023 4:05 PM EST 06/20/2023 4:25 PM EST Narrative Resulting Agency Comment Spec In Lab Rodney Padilla MD URINE ORDERABLES [facility] [place] [place] [address] * Lipid Panel (Reflex Direct LDL) (06/20/2023 3:58 PM EST) Cholesterol, Total 141 mg/dL [facility] Comment: Lower Risk: <200 mg/dL Average Risk: 200-239 mg/dL Higher Risk: >fm=379 mg/dL Triglyceride 96 mg/dL [facility] Comment: Average Risk/Lower Risk: <150 mg/dL Borderline High Risk: 150-199 mg/dL High Risk: 200-499 mg/dL Very High Risk: >iw=006 mg/dL HDL Cholesterol 41 mg/dL [facility] Comment: Males: ?? Higher Risk: <40 mg/dL Females: ?? Higher Risk: <50 mg/dL LDL Cholesterol 81 mg/dL [facility] Comment: Lowest Risk: <100 mg/dL Lower Risk: 100-129 mg/dL Borderline High Risk: 130-159 mg/dL High Risk: 160-189 mg/dL Very High Risk: >xx=223 mg/dL Cholesterol/HDL Ratio 3.4 ratio [facility] Lipid Interpretation See Note [facility] Comment: Lipid management should be guided by a patient? s ASCVD risk, goals and preferences. ACC/AHA Guidelines recommend high intensity statin if clinical ASCVD or LDL greater than or equal to 190 mg/dL. http://[employer].com/LYP-VJV-Cdgbenyjz Adults aged 40-75 with LDL 70-189 mg/dL should have their 10 year ASCVD risk estimated with the ACC/AHA ASCVD risk utilities estimator and drafter http://tools.acc.org/LEJIT-Unwk-Kvfarmuwx/ Statin should be discussed if risk greater than or equal to 7.5% in non-diabetics. With diabetes, moderate intensity statin is recommended if risk less than 7.5%, high intensity if risk greater than or equal to 7.5%. Annual lipid monitoring on statins is not necessary. Evaluate secondary causes of Triglycerides greater than 500 mg/dL or LDL greater than 190 mg/dL: See table 6 of ACC/AHA Guideline. Lifestyle modification is a critical component of ASCVD risk reduction. Blood 06/20/2023 3:58 PM EST 06/20/2023 4:08 PM EST Narrative Resulting Agency Comment Spec In Lab Rodney Padilla MD CHEMISTRY ORDERABLE S [facility] [place] [address] * Basic Metabolic Panel (non-fasting) (06/20/2023 3:58 PM EST) Glucose 142 65 - 199 mg/dL [facility] Comment:Diabetes: >=200 mg/d L plus symptoms Blood Urea Nitrogen 11 8 - 18 mg/dL [facility] Creatinine 0.89 0.70 - 1.20 mg/dL [facility] Sodium 144 135 - 145 mmol/L [facility] Potassium 4.3 3.5 - 5.0 mmol/L [facility] Comment: Please note: ??Patients with WBC >100,000 may have falsely elevated Potassium levels. ??For accurate Potassium quantification in these patients send serum separator tube (gold top) for subsequent determinations. ??Contact the Clinical Chemistry Laboratory if there are any questions. Chloride 106 98 - 107 mmol/L [facility] Carbon Dioxide 25 22 - 31 mmol/L [facility] Anion Gap 13 5 - 15 mmol/L [facility] Calcium 9.3 8.5 - 10.5 mg/dL [facility] Est Glomerular Filtration Rate 73 >=60 mL/min/1. 73 m?? [facility] Comment: This patient's estimated GFR [...] and symptoms in addition to eGFR. Blood 06/20/2023 3:58 PM EST 06/20/2023 4:08 PM EST Narrative Resulting Agency Comment Spec In Lab Rodney Padilla MD CHEMISTRY ORDERABLE S Performing Organization Address [facility] Co de Phone Number [facility] [place] [address] * (ABNORMAL) Hemoglobin A1c (06/20/2023 3:58 PM EST) Hemoglobin A1c 9.4(H) 4.3 - 5.6 % [facility] Comment: Reference Range: 4.3 - [...] Mellitus, Diabetes Care 2013; 36: Suppl. 1, X23-59 Estimated Average Glucose 222 mg/dL [facility] Comment: Note: The eAG calculation has not been proven valid for women, individuals below 18 years old or above 70 years old, or individuals with hemoglobinopathies. Estimated average glucose (eAG) is calculated from the equation described in: Yahir GRADY, Bernadette J, Tahira R, et al. ??Translating the A1C assay into estimated average glucose values. ??Diabetes Care 2008:31(8):3741-7262. Additional resources are available on the ADA website (diabetes.org). Blood 06/20/2023 3:58 PM EST 06/20/2023 4:08 PM EST Narrative Resulting Agency Comment Spec In Lab Rodney Padilla MD CHEMISTRY ORDERABLE S Performing Organization Address City/[facility]/ZIP [place] [address] documented in this encounter Visit Diagnoses Diagnosis Diabetic polyneuropathy associated with type 2 diabetes mellitus Type 2 diabetes mellitus with diabetic neuropathy, with long-term current use of insulin Essential hypertension Unspecified essential hypertension Immunization due Need for prophylactic vaccination and inoculation against unspecified single disease Bipolar affective disorder in remission Chronic obstructive pulmonary disease, unspecified COPD type Asthma, unspecified asthma severity, unspecified whether complicated, unspecified whether persistent Chronic obstructive pulmonary disease, unspecified COPD type documented in this encounter Care Teams City Administrator Relationship Specialty Start Date End Date Rodney Padilla MD [address] [address] PCP - General 07/18/22 documented as of this encounter
--- OUTSIDE RECORDS SUMMARY | 2024-03-04 21:18 | XMS_ITS | Encounter Summary ---
Author Organization [facility] Address [facility] [place] [address] Care Team Providers Care Trim Mounter Name Role Phone Rodney Padilla MD Primary Care Provider [phone]- [phone] Encounter Details Date Type Department Care Team (Latest Contact Info) Description 06/14/2023 Travel Social History Tobacco Use Types Packs/Day [...] TH Visit (TeleHealth) Sleep Center at [facility] [address] [place] [phone] Denisse Hardwick, [facility] 03/20/2024 2:00 PM EDT Clinical Support Family Medicine at [facility] [address] [place] [phone] Julia Low, [facility] 05/01/2024 11:20 AM EDT Appointment Mammography/[place] [address] Rodney Padilla MD [address] [facility] [place], [place] [id number] 05/01/2024 1:45 PM EDT Office [place] [address] Juanpablo Hernandez MD [facility] [place] [address] 01/30/2025 1:30 PM EDT Appointment Hematology [place] [address] 01/30/2025 3:[address] [place] [address] Arturo Cordero MD [facility] DR HEMATOLOGY [place] [address] 01/30/2025 4:15 PM EDT Office Visit Hematology [place] [address] Arturo Cordero MD [facility] DR HEMATOLOGY [place] [address] documented as of this encounter Visit Diagnoses Not on filedocumented in this encounter Care Teams Trim Mounter Relationship Specialty Start Date End Date Rodney Padilla MD [address] [place] [address] PCP - General 07/18/22 documented as of this encounter
--- OUTSIDE RECORDS SUMMARY | 2024-03-04 21:18 | XMS_ITS | Encounter Summary ---
Author Organization [facility] Address [facility] [place] [address] Care Team Providers Care Stereo Equipment Repairer Name Role Phone Rodney Padilla MD Primary Care Provider [phone]- [phone] Encounter Details Date Type Department Care Team (Latest Contact Info) Description 08/16/2023 Travel Social History Tobacco Use Types Packs/Day [...] EDT TH Visit (TeleHealth) Sleep Center at [facility] [address] [place] [phone] Denisse Hardwick, [facility] 03/20/2024 2:00 PM EDT Clinical Support Family Medicine at [facility] [address] [place] [phone] Julia Low, [facility] 05/01/2024 11:20 AM EDT Appointment Mammography/[place] [address] Rodney Padilla MD [address] [facility] [place], [place] [id number] 05/01/2024 1:45 PM EDT Office [place] [address] Juanpablo Hernandez MD [facility] [place] [address] 01/30/2025 1:30 PM EDT Appointment Hematology [place] [address] 01/30/2025 3:[address] [place] [address] Arturo Cordero MD [facility] DR [place] [address] 01/30/2025 4:15 PM EDT Office Visit Hematology [place] [address] Arturo Cordero MD [facility] DR [place] [address] documented as of this encounter Visit Diagnoses Not on filedocumented in this encounter Care Teams Stereo Equipment Repairer Relationship Specialty Start Date End Date Rodney Padilla MD [address] [place] [address] PCP - General 07/18/22 documented as of this encounter
--- OUTSIDE RECORDS SUMMARY | 2024-03-04 21:18 | XMS_ITS | Encounter Summary ---
Author Organization [facility] [place] [address] Care Team Providers Care Manager Sign Name Role Phone Rodney Padilla MD Primary Care Provider [phone]- [phone] Reason for Visit * Reason Comments Medication Refill Encounter Details Date Type Department Care Team (Late st Contact Info) Description 08/27/2023 Refill Family Medicine at [facility] [address] [place] [address] Rodney Padilla MD [address] [facility] [place] [address] Mixed hyperlipidemia Social History Tobacco Use Types [...] Miscellaneous Notes * Telephone Encounter - Lucien Moore CMA - 08/27/2023 8:11 PM EST Prescription Renewal Request Name: Alize Gramajo : 1960 Prescription(s) Requested: Requested Prescriptions Pending Prescriptions Disp Refills simvastatin (Zocor) 10 mg tablet [Pharmacy Med Name: SIMVASTATIN 10 MG TABLET] 90 tablet 1 Sig: TAKE ONE TABLET BY MOUTH EVERY DAY Date of Encounter last in This Dept (If need an appointment send to secretaries to schedule): 06/20/23 Next Encounter in This Dept: 09/19/2023 Date of Last Refill (for each medication): 02/27/23#90/1 Medication category requirements (labs etc): na Status of request: Pended Allergies Allergen Reactions Codeine Phosphate Nausea And Vomiting Erythromycin Base Nausea Only Azithromycin Ibuprofen Stomach upset Lisinopril cough Nsaids (Non-Steroidal Anti-Inflammatory Drug) Nausea And Vomiting Lucien Moore CMA 08/27/23 8:11 PM documented in this encounter Plan of Treatment Upcoming Encounters Date Type Department Care Team (Late st Contact Info) Description 03/20/2024 9:00 AM EDT TH Visit (TeleHealth) Sleep Center at [facility] [address] [place] [phone] Denisse Hardwick, [facility] 03/20/2024 2:00 PM EDT Clinical Support Family Medicine at [facility] [address] [place] [address] Julia Low, [facility] 05/01/2024 11:20 AM EDT Appointment Mammography[place] [address] Rodney Padilla MD [address] [place], [place] [id number] 05/01/2024 1:45 PM EDT Office [place] [address] Juanpablo Hernandez MD [facility] [place] [address] 01/30/2025 1:30 PM EDT Appointment Hematology [place] [address] 01/30/2025 3:[address] [place] [phone] Arturo Cordero MD [facility] [place] [address] 01/30/2025 4:15 PM EDT Office Visit Hematology [place] [address] Arturo Cordero MD [facility] HEMATOLOGY AND ONCOLOGY [place], [place] [address] documented as of this encounter Visit Diagnoses Diagnosis Mixed hyperlipidemia documented in this encounter Care Teams Manager Sign Relationship Specialty Start Date End Date Rodney Padilla MD [address] [place] [address] PCP - General 07/18/22 documented as of this encounter
--- OUTSIDE RECORDS SUMMARY | 2024-03-04 21:18 | XMS_ITS | Encounter Summary ---
Author Organization [facility] [place] [address] Care Team Providers Care Tank Wagon Operator Name Role Phone Rodney Padilla MD Primary Care Provider Encounter Details Date Type Department Care Team (Latest Contact Info) Description 08/03/2023 7:45 AM EST - 08/03/2023 11:59 PM EST Hospital Encounter [place] [address] Malignant melanoma of conjunctiva, left Discharge Disposition: [...] End Date inhalational spacing device (Hesham Aerosol [place] Enhancer) SpacerIndications:Chr onic obstructive pulmonary disease, unspecified [...] (E.C.) Take 81 mg by mouth daily. semaglutide (Ozempic) 0.25 mg or 0.5 mg (2 mg/3 mL) Pen InjectorIndications:t ype 2 diabetes mellitus Inject 0.25 mg subcutaneously once a week for 28 days, THEN 0.5 mg once a week. Indications: type 2 diabetes mellitus 3 mL 11 08/03/2023 10/27/2023 Blood-Glucose Sensor (ClassWallet G7 Sensor) DeviceIndications:Typ e 2 diabetes mellitus with hyperglycemia, without long-term current use of insulin 1 Device by [facility].(Non-Drug; Combo Route) route every 10 days. 3 [...] 09/26/2022 09/19/2023 fluticasone propionate (Flonase) 50 mcg/actuation [place], Suspension 1 spray by Each Nare route [...] Sleep Center at [facility] [address] [place] [phone] Denisse Hardwick, [facility] 03/20/2024 2:00 PM EDT Clinical Support Family Medicine at [facility] [address] [place] [address] Julia Low, [facility], [facility] 05/01/2024 11:20 AM EDT Appointment Mammography/[place] [phone] Rodney Padilla MD [address] [facility] [place], [place] [id number] 05/01/2024 1:45 PM EDT Office [place] [phone] Juanpablo Hernandez MD [facility] [place] [address] 01/30/2025 1:30 PM EDT Appointment Hematology [place] [address] 01/30/2025 3:[address] [place] [address] Arturo Cordero MD [facility] [place] [address] 01/30/2025 4:15 PM EDT Office Visit Hematology and Oncology at [facility] [place] [address] Arturo Cordero MD [facility] DR HEMATOLOGY [place] [address] documented as of this encounter Procedures Procedure Name Priority Date/Time Associated Diagnosis Comments HEMOGRAM STAT 08/03/2023 7:53 AM EST Malignant melanoma of conjunctiva, left DIFFERENTIAL, AUTOMATED STAT 08/03/2023 7:53 AM EST Malignant melanoma of conjunctiva, left CBC (WITH DIFF) STAT 08/03/2023 7:53 AM EST Malignant melanoma of conjunctiva, left LACTATE DEHYDROGENASE STAT 08/03/2023 7:53 AM EST Malignant melanoma of conjunctiva, left COMPREHENSIVE METABOLIC PANEL STAT 08/03/2023 7:53 AM EST Malignant melanoma of conjunctiva, left documented in this encounter Results * (ABNORMAL) Differential, Automated (08/03/2023 7:53 AM EST) Neutrophil % 63.8 % [facility] Neutrophil Absolute 5.66 1.70 - 6.10 x10(3)/mc L [facility] Lymph % 24.1 % [facility] Lymphocytes Abs 2.1 0.9 - 3.2 x10(3)/mc L [facility] Monocyte % 8.9 % [facility] Monocyte Abs 0.8 0.3 - 0.9 x10(3)/mc L [facility] Eos % 1.8 % [facility] Eosinophils Abs 0.2 0.0 - 0.4 x10(3)/mc L [facility] Basophil % 0.8 % [facility] Baso Absolute 0.1 0.0 - 0.1 x10(3)/mc L [facility] Immature Gran % 0.60 % [facility] Comment: Immature granulocytes(IG's)percentage and absolute count will include metamyelocytes, myelocytes, and promyelocytes. Blood smears from CBCs yielding IG's will be scanned manually for concordance. If this scan disagrees with the automated IG or if promyelocytes are noted, a manual differential will be performed. Immature Gran Absolute 0.05(H) 0.00 - 0.04 x10(3)/mc L [facility] Blood 08/03/2023 7:53 AM EST 08/03/2023 8:53 AM EST Narrative Resulting Agency Comment Spec In Lab Arturo Cordero MD HEMATOLOGY ORDERABLE S [facility] [place] [address] * (ABNORMAL) Hemogram (08/03/2023 7:53 AM EST) White Blood Cell 8.9 4.0 - 9.5 x10(3)/mc L [facility] Red Blood Cell 4.61 4.00 - 5.21 x10(6)/mc L [facility] Hemoglobin 13.0 11.7 - 15.5 g/dL [facility] Hematocrit 39.3 35.7 - 45.8 % [facility] Mean Cell Volume 85.2 82.6 - 94.4 fL [facility] Mean Cell Hemoglobin 28.2 27.1 - 32.0 pg [facility] Mean Cell Hemoglobin Concentration 33.1 31.7 - 35.0 g/dL [facility] Platelet 389(H) 145 - 357 x10(3)/mc L [facility] RDW Standard Deviation 46.1(H) 37.0 - 46.0 fL [facility] RDW coefficient of variation 14.8(H) 11.5 - 14.1 % [facility] Mean Platelet Volume 9.3 7.6 - 12.9 fL [facility] NRBC% auto 0.0 % [facility] NRBC Absolute 0.000 0.000 - 0.000 x10(3)/mc L [facility] Blood 08/03/2023 7:53 AM EST 08/03/2023 8:53 AM EST Narrative Resulting Agency Comment Spec In Lab Arturo Cordero MD HEMATOLOGY ORDERABLE S [facility] [address] [place] [address] * (ABNORMAL) Comprehensive metabolic panel (non-fasting) (08/03/2023 7:53 AM EST) Glucose 254(H) 65 - 199 mg/dL [facility] Comment:Diabetes: >=200 mg/d L plus symptoms Blood Urea Nitrogen 17 8 - 18 mg/dL [facility] Creatinine 0.82 0.70 - 1.20 mg/dL [facility] Sodium 140 135 - 145 mmol/L [facility] Potassium 4.9 3.5 - 5.0 mmol/L [facility] Comment: Please note: ??Patients with WBC >100,000 may have falsely elevated Potassium levels. ??For accurate Potassium quantification in these patients send serum separator tube (gold top) for subsequent determinations. ??Contact the Clinical Chemistry Laboratory if there are any questions. Chloride 103 98 - 107 mmol/L [facility] Carbon Dioxide 27 22 - 31 mmol/L [facility] Anion Gap 10 5 - 15 mmol/L [facility] Calcium 9.5 8.5 - 10.5 mg/dL [facility] Protein, Total 6.9 6.1 - 8.0 g/dL [facility] Albumin 4.3 3.2 - 5.2 g/dL [facility] Aspartate Aminotransferase 19 0 - 30 unit/L [facility] Alanine Aminotransferase 26 0 - 30 unit/L [facility] Alkaline Phosphatase 101 35 - 105 unit/L [facility] Bilirubin, Total 0.3 0.2 - 1.3 mg/dL [facility] Est Glomerular Filtration Rate 80 >=60 mL/min/1. 73 m?? [facility] Comment: This patient's estimated GFR [...] and symptoms in addition to eGFR. Blood 08/03/2023 7:53 AM EST 08/03/2023 9:46 AM EST Narrative Resulting Agency Comment Spec In Lab Arturo Cordero MD CHEMISTRY ORDERABLES Performing Organization Address City/[facility]/ZIP Co de Phone Number [place] [address] * Lactate Dehydrogenase (08/03/2023 7:53 AM EST) Lactate Dehydrogenase 218 110 - 220 unit/L [facility] Blood 08/03/2023 7:53 AM EST 08/03/2023 9:46 AM EST Narrative Resulting Agency Comment Spec In Lab Arturo Cordero MD CHEMISTRY ORDERABLES Performing Organization Address City/[facility] Co de Phone Number [place] [address] documented in this encounter Visit Diagnoses Diagnosis Malignant melanoma of conjunctiva, left documented in this encounter Care Teams Tank Wagon Operator Relationship Specialty Start Date End Date Rodney Padilla MD [address] [place] [place] [address] PCP - General 07/18/22 documented as of this encounter
--- OUTSIDE RECORDS SUMMARY | 2024-03-04 21:19 | XMS_ITS | Encounter Summary ---
Author Organization [facility] Address [facility] [place] [place] [address] Care Team Providers Care Top Cleaner Name Role Phone Rodney Padilla MD Primary Care Provider [phone] Encounter Details Date Type Department Care Team (Latest Contact Info) Description 12/29/2022 Travel Social History Tobacco Use Types Packs/Day [...] [facility] [address] [place] [phone] Denisse Hardwick, [facility] 03/20/2024 2:00 PM EDT Clinical Support Family Medicine at [facility] [address] [place] [phone] Julia Low, [facility] 05/01/2024 11:20 AM EDT Appointment Mammography/[place] [address] Rodney Padilla MD [address] [facility] [place], [place] [phone] 05/01/2024 1:45 PM EDT Office [place] [address] Juanpablo Hernandez MD [facility] [place] [address] 01/30/2025 1:30 PM EDT Appointment [place] [address] 01/30/2025 3:[address] [place] [place] [address] Arturo Cordero MD [facility] [place] [address] 01/30/2025 4:15 PM EDT Office Visit [place]ology [place] [address] Arturo Cordero MD [facility] [place] [address] documented as of this encounter Visit Diagnoses Not on filedocumented in this encounter Care Teams Top Cleaner Relationship Specialty Start Date End Date Rodney Padilla MD [address] [place] [address] PCP - General 07/18/22 documented as of this encounter
--- OUTSIDE RECORDS SUMMARY | 2024-03-04 21:19 | XMS_ITS | Encounter Summary ---
Author Organization [facility] Address [facility] [place] [address] Care Team Providers Care Grinder Set Up Operator Internal Name Role Phone Rodney Padilla MD Primary Care Provider [phone] Reason for Visit * Reason Comments Diabetes Encounter Details Date Type Department Care Team (Late st Contact Info) Description 01/05/2023 9:00 AM EDT TH Visit (TeleHealth) Family Medicine at [facility] [address] [place] [address] Julia Low, [facility] Type 2 diabetes mellitus without long-term current [...] Progress Notes * Julia Low RP - 01/05/2023 9:00 AM EDT Clinical Pharmacist Consultation; Julia Low RPH Visit Type: Telehealth phone followup Diabetes Mellitus (DM) Medication Management Subjective Subjective: Patient ID: Alize Gramajo is a 62 y.o. female She is here to re-establish care for their type II diabetes. Signed DM or Metabolic Syndrome collaborative practice agreement (CPA)? yes Length of DM [] New dx Year of diagnosis: unk earliest reports 2018 Diabetic complications: PMH notable for any of the following conditions: Yes [x] [place]/Stroke/CAD [] Retinopathy [] CHF [x] Neuropathy [] CKD [x] NAFLD/BARRERA- Qt of fatty liver on CT scan from 2021 unclear if ever evaluated and ruled in/out [] History of diabetes-related amputations [] Personal history of pancreatitis [] Personal or family history of thyroid cancer Date of last eye exam: ? Date of last foot exam: ? Referring Provider/date: Rodney Padilla MD Health Beliefs and Attitudes Feelings about having DM agitated, anxious and uncooperative Pt's reasons for uncontrolled DM Knee pain Stress from finances Shoulder/neck pain Anxiety Depression The pt is in a contemplative stage of making changes to manage their diabetes Factors causing stress (health, money, job, social) Pt appears concerned about DM but overwhelmed with other life stressors most notably including finances and pain. May be difficult to prioritize DM management. Also presents with a high level of fear. Barriers Identified: Per Patient reports that after [...] Practice Standards: Statin:yes - simvastatin 10 mg EBENEZER/ARB: yes - losartan 100 mg Aspirin: yes - asa 81 mg and clopidogrel -Uses [facility] -Prefers oral therapies to injections but willing to try injectable meds Diabetes medication regimen: Metformin XR 500 mg 2 tabs BID Lantus 2 units daily started on 12/04/22 increased to 3 units on 12/17 and 4 units on 12/30; has gotten confident injecting Prior diabetes therapy trials: Never started Rybelsus or Ozempic d/t fear of stomach SE/FARZAD glimepiride caused hypoglycemia in the afternoon Did not tolerate Tresiba Home Glucose Monitoring are performed sporadically. 3 x weekly. Uses Freestyle testing supplies Has Freestyle sanjana but has never worn and fears being unable to understand the results so elected not to try Before Brkfast Before Lunch After Lunch Before Supper After Supper BED 15-Quirino 197 223 159 16-Quirino 229 135 17-Quirino 206 18-Quirino 206 221 115 19-Quirino 189 185 164 20-Quirino 233 129 21-Quirino 180 164 157 22-Quirino 180 126 191 23-Quirino 24-Quirino 25-Quirino 170 158 113 26-Quirino 202 148 27-Quirino 190 AM PHI PM BED Average 198 193 193 133 161 159 Lowest 170 158 164 113 135 159 Highest 233 223 221 164 191 159 Daily Avg 176 eA1c [id number] Prior Averages: 08/26/21 09/09/21 09/24/21 11/14/21 11/03/22 12/01/22 Daily Avg 157 168 131 138 175 153 eA1c 8.20291 8.46 7.20 7.44 8.7 7.95 Acute complications of diabetes: Have you had a low blood sugar reaction? If yes, how did you feel? No [] Denies [] Shaking [] Sweating [] Weakness/fatigue [] Dizziness [] Blurred vision [] Other Have you had high blood sugar? If yes, how did you feel? Unknown [] Denies [] Polydipsia [] Polyuria [] Polyphagia [] Other Lifestyle Visiting daily her 88 yo mother who was hospitalized with sepsis for the past 9 days Nutrition/diet history: Appetite: good Meal Plan or Goals: set her meal times would bring food to the hospital and did better drinking more water because it was available at the hospital Number of meals/day: 3 but randomly throughout the day, not at any set time Activity: Pt is not incorporating routine exercise at this time. Walking more visiting the hospital Has to get an appt with ortho List any problems/restrictions with exercise: Knee pain wants a referral to ortho Considers themselves not active Objective Objective: Allergies and Drug intolerance: Allergies Allergen Reactions Codeine Phosphate Nausea And Vomiting Erythromycin Base Nausea Only Azithromycin Ibuprofen Stomach upset Lisinopril cough Nsaids (Non-Steroidal Anti-Inflammatory Drug) Nausea And Vomiting Medication List: Current Outpatient Medications Medication Sig Dispense Refill simvastatin (Zocor) 10 mg tablet Take 1 tablet by mouth daily. 90 tablet 0 Lantus Solostar U-100 Insulin 100 unit/mL (3 mL) pen Inject 2 Units subcutaneously nightly. Inject 2-20 units based on BG Indications: type 2 diabetes mellitus 15 mL 11 Alcohol Swabs Pads, Medicated Apply 1 each topically daily. 100 each 3 insulin needles, disposable, 32 gauge x 5/32 Needle Inject 1 each subcutaneously daily. Indications: diabetes 100 each 11 nitroGLYcerin (Nitrostat) 0.[address] 1 tablet under the tongue See Admin Instructions. 30 tablet 5 fluticasone propionate (Flonase) 50 mcg/actuation [place], Suspension 1 spray by Each Nare route 2 times daily. 16 g 11 sucralfate (Carafate) 100 mg/mL Suspension TAKE 10 ML BY MOUTH FOUR TIMES A DAY 1242 mL 2 nystatin (MYCOSTATIN) 100,000 unit/gram Powder Apply topically 4 times daily. 15 g 3 psyllium Take 1 packet by mouth daily. 30 each 11 freestyle lite strips 1 each by Other route 3 times daily. Use as instructed Indications: type 2 diabetes mellitus 300 each 3 budesonide-formoteroL (Symbicort) 80-4.5 mcg/actuation HFA Aerosol Inhaler Inhale 2 puffs into the lungs 2 times daily. 3 each 3 peppermint oiL 50 mg Capsule, Delayed Release(E.C.) Take 1 capsule by mouth daily. 90 capsule 3 simethicone (Gas Relief 80, simethicone,) 80 mg Tablet, Chewable Take 1 tablet by mouth every 6 hours as needed for Flatulence. 30 tablet 3 pantoprazole EC (Protonix) 40 mg Tablet, Delayed Release (E.C.) Take 1 tablet by mouth daily. 90 tablet 3 FreeStyle Lancets 28 gauge Misc 1 each by Other route 3 times daily. Indications: diabetes 100 each11 losartan (Cozaar) 100 mg Tablet Take 1 tablet by mouth daily. 90 tablet 3 miconazole (Micotin) 2 % Cream Place 1 applicator vaginally nightly. 45 g 0 melatonin 10 mg Capsule Take 1 capsule by mouth nightly. LORazepam (Ativan) 0.5 mg Tablet busPIRone (Buspar) 30 mg Tablet Take 30 mg by mouth 2 times daily. FreeStyle Lite Meter Kit amoxicillin-clavulanate (Augmentin) 875-125 mg Tablet TAKE ONE TABLET BY MOUTH TWICE A DAY FOR 7 DAYS clotrimazole (Mycelex) 10 mg Tanner Take 1 tablet by mouth 5 times daily. 25 Tanner 1 albuteroL (Proventil, Ventolin) (2.5 mg/3 mL) (0.083 %) Solution for Nebulization Take 3 mLs by nebulization every 4 hours as needed for Wheezing. 90 mL 1 Nebulizer Accessories Misc 1 each by [facility]Non-Drug; Combo Route) route every 4 hours as needed (wheezing, cough, or shortness of breath). Supply per insurance preferred quantity 10 each 11 clopidogreL (Plavix) 75 mg Tablet Take 1 tablet by mouth daily. 90 tablet 3 loratadine (Claritin) 10 mg Tablet Take 1 tablet by mouth daily. 90 tablet 3 metoprolol succinate XL (Toprol XL) 25 mg Tablet Sustained Release 24 hr Take 1 tablet by mouth daily. 90 tablet 3 amLODIPine (Norvasc) 5 mg Tablet Take 1 tablet by mouth daily. 90 tablet 3 metFORMIN XR (Glucophage XR) 500 mg Tablet Sustained Release 24 hr Take 2 tablets by mouth 2 times daily (with meals). 360 tablet 3 albuteroL (Proventil HFA) 90 mcg/actuation HFA Aerosol Inhaler Inhale 2 puffs into the lungs every 4 hours as needed for wheeze. Use with spacer 1 each 11 FreeStyle Sanjana 2 [place] Misc 1 each by Other route daily. Indications: diabetes mellitus 1 each 0 FreeStyle Sanjana 2 Sensor Kit 1 each by Other route every 14 days. Indications: diabetes mellitus 2 kit 0 polyethylene glycoL (Miralax) 17 gram Powder in [...] Vitals: BP Readings from Last 3 Encounters: 12/29/22 (!) 134/95 07/07/22 138/76 06/23/22 123/90 BMI Readings from Last 3 Encounters: 12/29/22 43.37 kg/m?? 07/07/22 42.20 kg/m?? 06/23/22 42.62 kg/m?? Wt Readings from Last 3 Encounters: 12/29/22 110.2 kg (242 lb 15.2 oz) 07/07/22 109.8 kg (242 lb) 06/23/22 110.9 kg (244 lb 7.8 oz) Pertinent Lab values: Lab Results Component Value Date NA 140 12/29/2022 K 4.5 12/29/2022 CL 104 12/29/2022 CO2 23 12/29/2022 BUN 17 12/29/2022 CREATININE 0.84 12/29/2022 GLUCOSE 259 (H) 12/29/2022 GLUCFASTING 116 (H) 06/29/2019 CALCIUM 9.5 12/29/2022 ESTGFR 78 12/29/2022 Last 3 Hemoglobin A1Cs Lab Results Component Value Date HA1C 9.3 (A) 10/05/2022 HA1C 9.2 (H) 04/12/2022 HA1C 8.1 (A) 10/26/2021 Immunization history: Immunization status: missing Shingrix Current Immunizations Name Date INFLUENZA 06/07/2022 , 05/31/2021 , 05/06/2020 , 04/09/2019 , 05/08/2015 , 05/10/2007 Pfizer Covid-19 Bivalent 12Yrs+ (Gordon Cap 30mcg) 06/07/2022 Pneumo (PCV-13) 04/09/2019 Pneumo (PPSV-23) 05/10/2007 TD 06/24/2011 , 10/07/2005 , 09/07/2005 TDAP 04/09/2019 , 06/24/2011 Prescription Insurance: No value filed. Assessment and Recommendations: Diabetes Lab Results Component Value Date HA1C 9.3 (A) 10/05/2022 Clinic A1c is not at goal based on referral specified goal of <7% on diabetes regimen consistingof metformin and recently started Lantus. She does fear additional meds OF Note pt's A1c has been elevated consistently since 2019 Appears adherent without SE. Pt has appropriately dosed her insulin by increasing 1 units every 3-5days based on elevated FBG. This dosing seems to have built her confidence injecting and she can now see how her BGs are improving with insulin titration Home glucose has been elevated per review but is trending down as she slowly titrates her insulin. I will recommend another unit increase and give pt a titration guide for adjusting her insulin doses. Will follow up closely until insulin dose can be set. Pt is indicated for additional therapy at this time to support DM management. Based on review recommend a GLP-1 but pt fears GI SE. So we started basal insulin Blood Pressure BP Readings from Last 3 Encounters: 12/29/22 (!) 134/95 07/07/22 138/76 06/23/22 123/90 Clinic BP is well controlled with antihypertensive regimen consisting of losartan and amlodipine Overdue for Ualb Cholesterol: Lipid Panel The ASCVD Risk score (Jose Alberto BRADLEY, et al., 2019) failed to calculate for the following reasons: Cannot find a previous HDL lab Cannot find a previous total cholesterol lab NEED FLP Plan: Treatment changes: Diabetes Medication Regimen at conclusion of 01/05/23 encounter: Metformin XR 500 mg 2 tabs BID INCREASE Lantus 5 units daily; increased dose by 1 units every 3 days if FBG >150 Alize was seen today for diabetes. Diagnoses and all orders for this visit: Type 2 diabetes mellitus without long-term current use of insulin - Lantus Solostar U-100 Insulin 100 unit/mL (3 mL) pen; Inject 5 Units subcutaneously nightly. Inject 2-20 units based on BG Indications: type 2 diabetes mellitus Efforts to improve adherence to therapy plan (if necessary) will be directed at: Continue SMBG twice daily FBG and before supper Follow up in 2-3 weeks to titrate insulin dose Pt verbalized agreement and understanding of plan with no further questions at this time. Pt understands IF NO CPA ON FILE no changes to current drug regimen were made at the appointment and that [facility] providing recommendations for provider review and follow up. Julia Low RPH 01/05/23 Total time spent: 45 minutes documented in this encounter Plan of Treatment Upcoming Encounters Date Type Department Care Team (Late st Contact Info) Description 03/20/2024 9:00 AM EDT TH Visit (TeleHealth) Sleep Center [facility] [address] [place] [phone] Denisse Hardwick, [facility] 03/20/2024 2:00 PM EDT Clinical Support Family [facility] [address] [place] [address] Julia Low [facility] 05/01/2024 11:20 AM EDT Appointment Mammography/[place] [address] Rodney Padilla MD [address] [facility] [place], [place] [id number] 05/01/2024 1:45 PM EDT Office [place] [address] Juanpablo Hernandez MD [facility] [place] [address] 01/30/2025 1:30 PM EDT Appointment Hematology [place] [address] 01/30/2025 3:[address] [place] [address] Arturo Cordero MD [facility] DR HEMATOLOGY [place] [address] 01/30/2025 4:15 PM EDT Office Visit Hematology [place] [address] Arturo Cordero MD [facility] DR HEMATOLOGY [place] [address] documented as of this encounter Visit Diagnoses Diagnosis Type 2 diabetes mellitus without long-term current use of insulin documented in this encounter Care Teams Grinder Set Up Operator Internal Relationship Specialty Start Date End Date Rodney Padilla MD [address] [place] [address] PCP - General 07/18/22 documented as of this encounter
--- OUTSIDE RECORDS SUMMARY | 2024-03-04 21:19 | XMS_ITS | Encounter Summary ---
Author Organization [facility] [place] [address] Care Team Providers Care Theatre Arts Professor Name Role Phone Rodney Padilla MD Primary Care Provider Encounter Details Date Type Department Care Team (Late st Contact Info) Description 02/20/2023 Telephone Family Medicine at [facility] [address] [place] [phone] Rani Menard, RN Social History Tobacco Use Types Packs/Day Years [...] encounter Miscellaneous Notes * Telephone Encounter - Rani Menard RN - 02/20/2023 3:41 PM EDT Called pt to clarify when she last had her shots. Pt already scheduled for 02/22/23 to discuss knee pain. Left message on unidentified VM to call the clinic back with questions. * Telephone Encounter - Julia Gooden - 02/20/2023 3:28 PM EDT Do we have approval to scheduled this cortisone shot? * Telephone Encounter - Rani Menard RN - 02/20/2023 11:06 AM EDT Copied from [facility] #[id number]. Topic: Triage - Triage >> Feb 20, 2023 10:40 AM Alba Richard wrote: Symptom: Knee Pain (spoke with [facility]) PCP: RODNEY PADILLA Additional Comments: AMCM advised a message be placed as patient is requesting an appointment on 02/22 for a cortizone shot for her severe knee pain. [facility] advised patient to be seen within 24 hours but patient declined. documented in this encounter Plan of Treatment Upcoming Encounters Date Type Department Care Team (Late st Contact Info) Description 03/20/2024 9:00 AM EDT TH Visit (TeleHealth) Sleep Center at [facility] [address] [place] [phone] Denisse Hardwick, [employer] [facility] 03/20/2024 2:00 PM EDT Clinical Support Family Medicine at [facility] [address] [place] [address] Julia Low, [facility] 05/01/2024 11:20 AM EDT Appointment Mammography/[place] [address] Rodney Padilla MD [address] [facility] [place], [place] [id number] 05/01/2024 1:45 PM EDT Office Visit Ophthalmology at [place] [phone] Juanpablo Hernandez MD [facility] [place] [address] 01/30/2025 1:30 PM EDT Appointment Hematology [place] [address] 01/30/2025 3:[address] [place] [address] Arturo Cordero MD [facility] [place] [address] 01/30/2025 4:15 PM EDT Office Visit Hematology [place] [address] Arturo Cordero MD [facility] [address] [place] [address] documented as of this encounter Visit Diagnoses Not on filedocumented in this encounter Care Teams Theatre Arts Professor Relationship Specialty Start Date End Date Rodney Padilla MD [address] [place] [address] PCP - General 07/18/22 documented as of this encounter
--- OUTSIDE RECORDS SUMMARY | 2024-03-04 21:19 | XMS_ITS | Encounter Summary ---
Author Organization [facility] [place] [address] Care Team Providers Care Sql Developer Dba Name Role Phone Rodney Padilla MD Primary Care Provider [phone] Encounter Details Date Type Department Care Team (Latest Contact Info) Description 02/28/2023 4:00 PM EDT TH Visit (TeleHealth) Family Medicine at [facility] [address] [place] [address] oRdney Padilla MD [address] [place] [address] Type 2 diabetes mellitus without complication, with [...] as of this encounter Progress Notes * Rodney Padilla MD - 02/28/2023 4:00 PM EDT TELEHEALTH VISIT Patient location: Home address on file: [address] [place] [phone] Mode of communication documented under telehealth requirements as appropriate Callback number if video visit: Preferred phone number on file: [phone] CHART REVIEW Patient unable to come to clinic due to lack of transportation and required care of her sick grandson. SUBJECTIVE Alize Gramajo is a 62 y.o. female addressed via above noted modality today for management of DM. Patient reports that she went to the ED on Monday due to blood sugar being in the 300's. In the ED was provided with rapid acting insulin and fluids, was discharged to home and advised to f/u with PCP.Reports that fasting blood sugar into the mid to high 200's. 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 I25.119 Altered mental status R41.82 Abnormal MRI of head R93.0 Mixed hyperlipidemia E78.2 Essential hypertension I10 Recurrent major depressive disorder, in remission F33.40 Chronic bilateral low back pain without sciatica M54.50, G89.29 TITO (obstructive sleep apnea) G47.33 Type 2 diabetes mellitus without long-term current use of insulin E11.65 Anxiety F41.9 Hx of dysplasia of cervix, low grade (VALENTINO 1) N87.0 H/O heart artery stent x4 LCX Z95.5 Diabetic polyneuropathy associated with type 2 diabetes mellitus E11.42 COPD J41.0 Bipolar affective disorder in remission F31.70 Left renal mass N28.89 Iron deficiency E61.1 Left atrial dilatation - severe I51.7 Renal mass, left N28.89 OAB (overactive bladder) N32.81 Adrenal mass E27.8 Malignant neoplasm of kidney C64.9 Conjunctival tumor D49.89 Malignant melanoma of conjunctiva, 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 Indications: diabetes 100 each 11 nitroGLYcerin (Nitrostat) 0.[address] 1 tablet under the tongue See Admin Instructions. 30 tablet 5 fluticasone propionate (Flonase) 50 mcg/actuation [place], Suspension 1 spray by Each Nare route 2 times daily. 16 g 11 sucralfate (Carafate) 100 mg/mL Suspension TAKE 10 ML BY MOUTH FOUR TIMES A DAY 1242 mL 2 nystatin (MYCOSTATIN) 100,000 unit/gram Powder Apply topically 4 times daily. 15 g 3 budesonide-formoteroL (Symbicort) 80-4.5 mcg/actuation HFA Aerosol Inhaler Inhale 2 puffs into the lungs 2 times daily. 3 each 3 pantoprazole EC (Protonix) 40 mg Tablet, [...] 2 times daily. FreeStyle Lite Meter Kit clotrimazole (Mycelex) 10 mg Tanner Take 1 [...] tablet by mouth daily. 90 tablet 3 polyethylene glycoL (Miralax) 17 gram Powder in [...] facility-administered medications on file prior to visit. OBJECTIVE There were no vitals taken for this visit. Physical: ASSESSMENT & PLAN 1) DM -Reviewed increasing insulin to max dose of 15 Units. Reviewed increasing 1 unit at a time until her fasting is between 100-120, advised not to go higher than 150, reviewed hypoglycemic indicaitons as well as RTC vs ED precautions, will follow up in one month. For phone visit: patient verbally consented to this telephone visit and understands that this visitmay be billed, similar to a clinic office visit. I provided care to the patient today via telephonecall, total time of call documented elsewhere in encounter under telehealth visit requirements Total time on date of encounter was 36 minutes including the any of the following activities as necessary for completion of the visit: Preparing to see pt, review of tests Obtaining and/or reviewing separately obtained history (eg, outside records, caregiver) Counseling and educating the patient/family/caregiver Referring and communicating with other health acute care nursing assistant Documenting clinical information in the electronic or other health record Independently interpreting results Care coordination documented in this encounter Plan of Treatment Upcoming Encounters Date Type Department Care Team (Late st Contact Info) Description 03/20/2024 9:00 AM EDT TH Visit (TeleHealth) Sleep Center at [facility] [address] [place] [phone] Denisse Hardwick, [employer] [facility] [facility] 03/20/2024 2:00 PM EDT Clinical Support Family Medicine at [facility] [address] [place] [phone] Julia Low [facility] 05/01/2024 11:20 AM EDT Appointment Mammography/[place] [address] Rodney Padilla MD [address] [facility] [place], [place] [phone] 05/01/2024 1:45 PM EDT Office Visit Ophthalmology at [place] [phone] Juanpablo Hernandez MD [facility] [place] [place] [address] 01/30/2025 1:30 PM EDT Appointment Hematology and Oncology at [place] [address] 01/30/2025 3:[address] Scan at [place] [address] Arturo Cordero MD [facility] [place] [address] 01/30/2025 4:15 PM EDT Office Visit Hematology and Oncology at [place] [phone] Arturo Coredro MD [facility] DR HEMATOLOGY [place] [address] documented as of this encounter Visit Diagnoses Diagnosis Type 2 diabetes mellitus without complication, with long-term current use of insulin documented in this encounter Care Teams Sql Developer Dba Relationship Specialty Start Date End Date Rodney Padilla MD [address] [place] [address] PCP - General 07/18/22 documented as of this encounter
--- OUTSIDE RECORDS SUMMARY | 2024-03-04 21:19 | XMS_ITS | Encounter Summary ---
Author Organization [facility] Address [facility] [place] [address] Care Team Providers Care Industrial Technology Teacher Name Role Phone Rodney Padilla MD Primary Care Provider [phone]- [phone] Encounter Details Date Type Department Care Team (Latest Contact Info) Description 12/22/2022 Travel Social History Tobacco Use Types Packs/Day [...] EDT TH Visit (TeleHealth) Sleep Center at [facility] [address] [place] [phone] Denisse Hardwick, PHARMACY DIRECTOR SLEEP CENTER 03/20/2024 2:00 PM EDT Clinical Support Family Medicine at [facility] [address] [place] [phone] Julia Low, [facility] 05/01/2024 11:20 AM EDT Appointment Mammography/[place] [address] Rodney Padilla MD [address] [facility] [place], [place] [phone] 05/01/2024 1:45 PM EDT Office Visit [place] [address] Juanpablo Hernandez MD [facility] [address] 01/30/2025 1:30 PM EDT Appointment Hematology [place] [address] 01/30/2025 3:[address] [place] [address] Arturo Cordero MD [facility] [place] [address] 01/30/2025 4:15 PM EDT Office Visit Hematology [place] [address] Arturo Cordero MD [facility] [place] [address] documented as of this encounter Visit Diagnoses Not on filedocumented in this encounter Care Teams Industrial Technology Teacher Relationship Specialty Start Date End Date Rodney Padilla MD [address] [place] [address] PCP - General 07/18/22 documented as of this encounter
--- OUTSIDE RECORDS SUMMARY | 2024-03-04 21:19 | XMS_ITS | Encounter Summary ---
Author Organization [facility] [place] [address] Care Team Providers Care New Car Make Ready Mechanic Name Role Phone Rodney Padilla MD Primary Care Provider Reason for Referral * Diagnostic Test (Routine) - Closed Specialty Diagnoses / Procedures Referred By Contac t Referred To Contact Radiology Diagnoses Malignant melanoma of conjunctiva, left Procedures CT Neck Soft Tissue w Contrast (Generic) Arturo Cordero MD [facility] DR HEMATOLOGY [place] [address] [facility] [place] [address] Referral ID Status Reason Start Date Expiration Date V isits Requested Visits Authorized [id number] Closed Specialty Service Requested 12/29/2022 06/30/2024 1 1 * Diagnostic Test (Routine) - Closed Specialty Diagnoses / Procedures Referred By Contac t Referred To Contact Radiology Diagnoses Malignant melanoma of conjunctiva, left Renal cell cancer, left Procedures CT Chest Abdomen Pelvis w Contrast (Generic) Arturo Cordero MD [facility] DR HEMATOLOGY [place] [address] [facility] [place] [address] Referral ID Status Reason Start Date Expiration Date V isits Requested Visits Authorized [id number] Closed Specialty Service Requested 12/29/2022 06/30/2024 1 1 Reason for Visit * Diagnostic Test (Routine) - Closed Specialty Diagnoses / Procedures Referred By Contac t Referred To Contact Radiology Diagnoses Malignant melanoma of conjunctiva, left Renal cell cancer, left Procedures CT Chest Abdomen Pelvis w Contrast (Generic) Arturo Cordero MD [facility] DR HEMATOLOGY [place] [address] [facility] [place] [address] Referral ID Status Reason Start Date Expiration Date V isits Requested Visits Authorized [id number] Closed Specialty Service Requested 12/29/2022 06/30/2024 1 1 Encounter Details Date Type Department Care Team (Latest Contact Info) Description 01/06/2023 12:18 PM EDT - 01/06/2023 11:59 PM EDT Hospital En[place] [address] Arturo Cordero MD [facility] DR HEMATOLOGY [place] [address] Malignant melanoma of conjunctiva, left; [...] Sig Dispensed Refills Start Date End Date FreeStyle Lancets 28 gauge MiscIndications:diabe escobar mellitus [...] (E.C.) Take 81 mg by mouth daily. Lanjose luis Solostar U-100 Insulin 100 unit/mL (3 mL) penIndications:type 2 diabetes mellitus Inject 5 Units subcutaneously nightly. Inject 2-20 units based on BG Indications: type 2 diabetes mellitus 15 mL 11 01/05/2023 01/23/2023 simvastatin (Zocor) 10 mg tabletIndications:Mix ed hyperlipidemia Take 1 tablet by mouth daily. 90 tablet 12/16/2022 02/27/2023 Alcohol Swabs Pads, MedicatedIndications: Type 2 diabetes [...] 09/26/2022 09/19/2023 fluticasone propionate (Flonase) 50 mcg/actuation [place], Suspension 1 spray by Each Nare route 2 times daily. 16 g 11 09/26/2022 09/28/2023 sucralfate (Carafate) 100 mg/mL Suspension TAKE 10 ML BY MOUTH FOUR TIMES A DAY 1242 mL 2 09/19/2022 04/02/2023 nystatin (MYCOSTATIN) 100,000 unit/gram Powder Apply topically 4 times daily. 15 g 3 07/15/2022 04/17/2023 psylliumIndications:L LQ pain Take 1 packet by mouth daily. 30 each 11 07/07/2022 02/22/2023 freestyle lite stripsIndications:typ e 2 diabetes mellitus 1 each by Other route 3 times daily. Use as instructed Indications: type 2 diabetes mellitus 300 each 3 06/24/2022 02/27/2023 budesonide-formoteroL (Symbicort) 80-4.5 mcg/actuation HFA Aerosol InhalerIndications:Si mple chronic bronchitis Inhale 2 puffs into the lungs 2 times daily. 3 each 3 06/24/2022 08/29/2023 peppermint oiL 50 mg Capsule, Delayed Release(E.C.)Indicati ons:Bloating Take 1 capsule by mouth daily. 90 capsule 3 06/16/2022 02/22/2023 simethicone (Gas Relief 80, simethicone,) 80 mg Tablet, ChewableIndications:B loating Take 1 tablet by mouth every 6 hours as needed for Flatulence. 30 tablet 3 06/16/2022 02/22/2023 pantoprazole EC (Protonix) 40 mg Tablet, Delayed Release (E.C.) Take 1 tablet by mouth daily. 90 tablet 3 06/16/2022 03/21/2023 losartan (Cozaar) 100 mg Tablet Take 1 tablet by mouth daily. 90 tablet 3 05/18/2022 03/21/2023 miconazole (Micotin) 2 % Cream Place 1 applicator vaginally nightly. 45 g 04/21/2022 06/20/2023 amoxicillin-clavulana te (Augmentin) 875-125 mg Tablet TAKE ONE TABLET BY MOUTH TWICE A DAY FOR 7 DAYS 04/14/2022 01/23/2023 clotrimazole (Mycelex) 10 mg Tanner Take 1 tablet by mouth 5 times daily. 25 Tanner 1 04/13/2022 04/17/2023 albuteroL (Proventil, Ventolin) (2.5 mg/3 mL) (0.083 %) Solution for Nebulization Take 3 mLs by nebulization every 4 hours as needed for Wheezing. 90 mL 1 04/12/2022 02/27/2024 Nebulizer Accessories MiscIndications:Simpl e chronic bronchitis 1 each by Misc.(Non-Drug; Combo Route) route every 4 hours as needed (wheezing, cough, or shortness of breath). Supply per insurance preferred quantity 10 each 11 04/08/2022 09/19/2023 clopidogreL (Plavix) 75 mg Tablet Take 1 tablet by mouth daily. 90 tablet 3 03/29/2022 03/21/2023 loratadine (Claritin) 10 mg Tablet Take 1 tablet by mouth daily. 90 tablet 3 03/29/2022 03/21/2023 metoprolol succinate XL (Toprol XL) 25 mg Tablet Sustained Release 24 hr Take 1 tablet by mouth daily. 90 tablet 3 03/29/2022 02/27/2023 amLODIPine (Norvasc) 5 mg TabletIndications:Ess ential hypertension Take 1 tablet by mouth daily. 90 tablet 3 03/29/2022 03/21/2023 metFORMIN XR (Glucophage XR) 500 mg Tablet Sustained Release 24 hr Take 2 tablets by mouth 2 times daily (with meals). 360 tablet 3 02/23/2022 02/20/2023 albuteroL (Proventil HFA) 90 mcg/actuation HFA Aerosol InhalerIndications:Si mple chronic bronchitis Inhale 2 puffs into the lungs every 4 hours as needed for wheeze. Use with spacer 1 each 12/10/2021 02/04/2023 FreeStyle Sanjana 2 [place] MiscIndications:diabe escobar mellitus 1 each by Other route daily. Indications: diabetes mellitus 1 each 10/26/2021 01/23/2023 FreeStyle Sanjana 2 Sensor KitIndications:diabet es mellitus 1 each by Other route every 14 days. Indications: diabetes mellitus 2 kit 10/26/2021 01/23/2023 polyethylene glycoL (Miralax) 17 gram Powder in PacketIndications:Con stipation, unspecified constipation type Take 17 g by mouth daily. 14 each 09/15/2020 09/19/2023 lamoTRIgine (LaMICtal) 100 mg TabletIndications:Bip olar affective disorder in remission Take 1 tablet by mouth daily. 90 tablet 3 08/05/2019 06/20/2023 documented as of this encounter Plan of Treatment Upcoming Encounters Date Type Department Care Team (Late st Contact Info) Description 03/20/2024 9:00 AM EDT TH Visit (TeleHealth) Sleep Center at [facility] [address] [place] [phone] Denisse Hardwick [facility] 03/20/2024 2:00 PM EDT Clinical Support Family Medicine at [facility] [address] [place] [phone] Julia Low [facility] 05/01/2024 11:20 AM EDT Appointment Mammography/[place] [address] Rodney Padilla MD [address] [place] [address] 05/01/2024 1:45 PM EDT Office Visit [place] [address] Juanpablo Hernandez MD [facility] [place] [address] 01/30/2025 1:30 PM EDT Appointment Hematology and Oncology at [place] [address] 01/30/2025 3:[address] [place] [address] Arturo Cordero MD [facility] [place] [address] 01/30/2025 4:15 PM EDT Office Visit Hematology and Oncology at [place] [phone] Arturo Cordero MD [facility] DR HEMATOLOGY [place] [address] documented as of this encounter Procedures Procedure Name Priority Date/Time Associated Diagnosis Comments CT CHEST ABDOMEN PELVIS W CONTRAST (GENERIC) Routine 01/06/2023 2:28 PM EDT Malignant melanoma of conjunctiva, left Renal cell cancer, left CT NECK SOFT TISSUE W CONTRAST Routine 01/06/2023 2:28 PM EDT Malignant melanoma of conjunctiva, left documented in this encounter Results * CT Neck Soft Tissue w Contrast (Generic) (01/06/2023 2:28 PM EDT) Anatomical Region Laterality Modality Neck, Head Computed Tomogra phy Impressions 01/09/2023 8:59 AM EDT No metastatic disease in the neck. Thank you for letting us participate in the care of this patient. ??If you are a health care provider and have any questions regarding this report, please contact the number below. ??For patients who have questions please contact the health urgent care nurse practitioner that requested your imaging first. ? 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 COMPARISON: CT neck 06/23/2022 FINDINGS: No large or morphologically suspicious cervical nodes. No masses. The visualized portions of the aerodigestive tract are normal. Parotid, submandibular, and thyroid glands are normal. The included portions of the orbits and intracranial contents are unremarkable. No suspicious osseous lesions. Interval extraction of the last left mandibular molar associated with groundglass density in the tooth socket, presumed benign. 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 COMPARISON: CT neck 06/23/2022 FINDINGS: No large or morphologically suspicious cervical nodes. No masses. Thevisualized portions of the aerodigestive tract are normal. Parotid, submandibular,and thyroid glands are normal. The included portions of the orbits andintracranial contents are unremarkable. No suspicious osseous lesions. Intervalextraction of the last left mandibular molar associated with groundglass density in thetooth socket, presumed benign. IMPRESSION No metastatic disease in the neck. Thank you for letting us participate in the care of this patient. If youare a health care provider and have any questions regarding this report,please contact the number below. For patients who have questions please contactthe health urgent care nurse practitioner that requested your imaging first. Arturo Cordero MD [facility] CT ORDERABLES * CT Chest Abdomen Pelvis w Contrast (Generic) (01/06/2023 2:28 PM EDT) Anatomical Region Laterality Modality Abdomen, Pelvis Computed Tomogra phy Impressions 01/06/2023 4:13 PM EDT 1. ??Focal nodular pleural thickening in the posterior left hemithorax, approximately 8 mm in greatest axial dimension, approximately 2 mm in thickness, favor benign. Attention on follow-up. 2. ??No definite metastases in the chest, abdomen and pelvis. 3. ??Liver steatosis and borderline hepatomegaly. Thank you for letting us participate in the care of this patient. ??If you are a health care provider and have any questions regarding this report, please contact the number below. ??For patients who have questions please contact the health urgent care nurse practitioner that requested your imaging first. ? 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 . Oral contrast was administered. COMPARISON: None FINDINGS: Chest: Lungs and large airways: Focal rounded pleural thickening, approximately 8 mm in circumference (series 303 image 44). No suspicious intrapulmonary masses or nodules. Pleura: No effusion. Heart/vasculature: Normal. Lymph nodes: No enlarged lymph nodes. Mediastinum and bess: Normal. Abdomen/pelvis: Liver: Upper limits of normal at 19 cm craniocaudally. Decreased attenuation consistent with steatosis. Bile ducts: Nondilated. Gallbladder: No calcified gallstones. Normal caliber wall. Pancreas: Normal attenuation without ductal dilatation. Spleen: Normal. Adrenals: Unchanged S-shaped left adrenal nodule, approximately 2 cm in greatest dimension. Normal right adrenal gland. Kidneys: Post partial nephrectomy changes on the left. No evidence of local tumor recurrence. Unremarkable appearance of the right kidney. No hydronephrosis. Urinary Bladder: Normal. Vasculature: Densely atheromatous, slightly tortuous abdominal aorta is nonaneurysmal. Lymph Nodes: No enlarged lymph nodes. Bowel: Nondilated, no wall thickening. Normal appendix Peritoneum and retroperitoneum: No free fluid. No pneumoperitoneum. No loculated fluid collection or mesenteric inflammation. Abdominal wall: Intact. Reproductive organs: Normal appearing uterus. No adnexal masses. Osseous structures: Facet hypertrophic changes in lower lumbar spine. Degenerative spondylosis at L4-L5 level with loss of intervertebral disc space. Mild degenerative thoracic spondylosis changes at multiple levels. No suspicious lesions. 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 . Oral contrast wasadministered. COMPARISON: None FINDINGS: Chest: Lungs and large airways: Focal rounded pleural thickening, approximately 8mm in circumference (series 303 image 44). No suspicious intrapulmonary massesor nodules. Pleura: No effusion. Heart/vasculature: Normal. Lymph nodes: No enlarged lymph nodes. Mediastinum and bess: Normal. Abdomen/pelvis: Liver: Upper limits of normal at 19 cm craniocaudally. Decreasedattenuation consistent with steatosis. Bile ducts: Nondilated. Gallbladder: No calcified gallstones. Normal caliber wall. Pancreas: Normal attenuation without ductal dilatation. Spleen: Normal. Adrenals: Unchanged S-shaped left adrenal nodule, approximately 2 cm ingreatest dimension. Normal right adrenal gland. Kidneys: Post partial nephrectomy changes on the left. No evidence oflocal tumor recurrence. Unremarkable appearance of the right kidney. No hydronephrosis. Urinary Bladder: Normal. Vasculature: Densely atheromatous, slightly tortuous abdominal aorta is nonaneurysmal. Lymph Nodes: No enlarged lymph nodes. Bowel: Nondilated, no wall thickening. Normal appendix Peritoneum and retroperitoneum: No free fluid. No pneumoperitoneum. Noloculated fluid collection or mesenteric inflammation. Abdominal wall: Intact. Reproductive organs: Normal appearing uterus. No adnexal masses. Osseous structures: Facet hypertrophic changes in lower lumbar spine. Degenerative spondylosis at L4-L5 level with loss of intervertebral discspace. Mild degenerative thoracic spondylosis changes at multiple levels. Nosuspicious lesions. IMPRESSION 1. Focal nodular pleural thickening in the posterior left hemithorax, approximately 8 mm in greatest axial dimension, approximately 2 mm inthickness, favor benign. Attention on follow-up. 2. No definite metastases in the chest, abdomen and pelvis. 3. Liver steatosis and borderline hepatomegaly. Thank you for letting us participate in the care of this patient. If youare a health care provider and have any questions regarding this report,please contact the number below. For patients who have questions please contactthe health urgent care nurse practitioner that requested your imaging first. Arturo Cordero [...] Intravenous, ONCE PRN, 1 dose, Starting on Mon01/06/23 at 1429, Until Mon01/06/23 at 1432, Per Protocol, Warning Vesicant/Irritant Medication , Radiology Contrast, Routine Given 01/06/2023 2:32 PM EDT 110 mLs iohexoL (Omnipaque) (350 mg/mL) solution 0-50 mL 0-50 mL, Oral, ONCE PRN, 1 dose, Starting on Mon01/06/23 at 1429, Until Mon01/06/23 at 1200, Per Protocol, Warning Vesicant/Irritant Medication , Radiology Contrast, Routine Given 01/06/2023 12:00 PM EDT 50 mLs documented in this encounter Care Teams New Car Make Ready Mechanic Relationship Specialty Start Date End Date Rodney Padilla MD [address] [place] [address] PCP - General 07/18/22 documented as of this encounter
--- OUTSIDE RECORDS SUMMARY | 2024-03-04 21:19 | XMS_ITS | Encounter Summary ---
Author Organization [facility] Address [facility] [place] [address] Care Team Providers Care Feed Mixer Helper Name Role Phone Rodney Padilla MD Primary Care Provider [phone] Reason for Visit * Reason Onset Date Comments Medication Refill 04/02/2023 Encounter Details Date Type Department Care Team (Late st Contact Info) Description 04/02/2023 Refill Family Medicine at [facility] [address] [place] [address] Tamera Khan, KATHIA [facility] DR [address] [place] [address] Social History Tobacco Use Types Packs/Day Years [...] Telephone Encounter - Jade Kruse MA - 04/05/2023 8:54 AM EDT Prescription Renewal Request Name: Alize Gramajo : 1960 Prescription(s) Requested: Requested Prescriptions Pending Prescriptions Disp Refills sucralfate (Carafate) 100 mg/mL Suspension 3726 mL 3 Sig: Take 10 mLs by mouth 4 times daily. Date of Encounter last in This Dept (If need an appointment send to secretaries to schedule): 02/28/2023 Randy Next Encounter in This Dept: 05/01/2023 Date of Last Refill (for each medication): 09/19/2022 1242ml w 2 refill Medication category requirements (labs etc): Status of request: Pended Allergies Allergen Reactions Codeine Phosphate Nausea And Vomiting Erythromycin Base Nausea Only Azithromycin Ibuprofen Stomach upset Lisinopril cough Nsaids (Non-Steroidal Anti-Inflammatory Drug) Nausea And Vomiting Jaed Kruse MA 04/05/23 8:58 AM documented in this encounter Plan of Treatment Upcoming Encounters Date Type Department Care Team (Late st Contact Info) Description 03/20/2024 9:00 AM EDT TH Visit (TeleHealth) Sleep Center at [facility] [address] [place] [phone] Denisse Hardwick, [facility] 03/20/2024 2:00 PM EDT Clinical Support Family Medicine at [facility] [address] [place] [phone] Julia Low, [facility] 05/01/2024 11:20 AM EDT Appointment Mammography/[place] [phone] Rodney Padilla MD [address] [facility] [place], [place] [id number] 05/01/2024 1:45 PM EDT Office Visit Ophthalmology at [place] [phone] Juanpablo Hernandez MD [facility] [address] 01/30/2025 1:30 PM EDT Appointment Hematology [place] [address] 01/30/2025 3:[address] [place] [address] Arturo Cordero MD [facility] [place] [address] 01/30/2025 4:15 PM EDT Office Visit Hematology [place] [address] Arturo Cordero MD [facility] DR [place] [address] documented as of this encounter Visit Diagnoses Not on filedocumented in this encounter Care Teams Feed Mixer Helper Relationship Specialty Start Date End Date Rodney Padilla MD [address] [place] [address] PCP - General 07/18/22 documented as of this encounter
--- OUTSIDE RECORDS SUMMARY | 2024-03-04 21:19 | XMS_ITS | Encounter Summary ---
Author Organization [facility] Address [facility] [place] [address] Care Team Providers Care Booth Cashier Name Role Phone Rodney Padilla MD Primary Care Provider [phone] Reason for Visit * Reason Comments Eye Problem Encounter Details Date Type Department Care Team (Late st Contact Info) Description 02/22/2023 12:45 PM EDT Office [place] [address] Juanpablo Hernandez MD [facility] [place] [address] Malignant melanoma of conjunctiva, left Social History Tobacco Use Types Packs/Day [...] * Patient Instructions* Juanpablo Hernandez MD - 02/22/2023 12:45 PM EDT Medications: Use eye medications as [...] Progress Notes * Juanpablo Hernandez MD - 02/22/2023 12:45 PM EDT Images from the original note were not included. Encounter Diagnosis Name Primary? Malignant melanoma of conjunctiva, left Alize Gramajo is a 62 y.o. with [...] point subconj fb pigment longstanding and non progressive -Discuss sunscreen, glasses, hat and skin protection in the sun. - Continue follow ups with Dr. Arriola - Repeat photos obtained for future reference 02/22/23: Mar 2020: NIDDM with A1C of 9.3: - CEE next visit, no evidence of NPDR/PDR 10/05/22 Cataract: Good BCVA, follow, MR given previously but has not obtained glasses yet. Previous KEITH - inferior punctal plug implant Current smoker but denies orthopnea, Hx of clear cell renal cell carcinoma Plan: - Follow up with dermatology and heme/onc as planned - Follow up 4-5 months or as needed - Findings and concerns discussed with Alize and she expressed understanding. Upon Return CEE I, Leandra Sy, have performed the documentation [...] EDT TH Visit (TeleHealth) Sleep Center at [facility] [address] [place] [address] Denisse Hardwick, [facility] 03/20/2024 2:00 PM EDT Clinical Support Family Medicine at [facility] [address] [place] [phone] Julia Low, [facility] 05/01/2024 11:20 AM EDT Appointment Mammography/[place] [address] Rodney Padilla MD [address] [place] [address] 05/01/2024 1:45 PM EDT Office [place] [address] Juanpablo Hernandez MD [facility] [place] [address] 01/30/2025 1:30 PM EDT Appointment Hematology [place] [address] 01/30/2025 3:[address] Scan at [place] [phone] Arturo Cordero MD [facility] DR HEMATOLOGY [place] [address] 01/30/2025 4:15 PM EDT Office Visit Hematology [place] [address] Arturo Cordero MD [facility] DR HEMATOLOGY [place] [address] documented as of this encounter Procedures Procedure Name Priority Date/Time Associated Diagnosis Comments EXTERNAL PHOTOGRAPHY - OS - LEFT EYE Routine 02/22/2023 1:40 PM EDT Malignant melanoma of conjunctiva, left documented in this encounter Results * External Photography - OS - Left Eye (02/22/2023 1:40 PM EDT) Anatomical Region Laterality Modality Other Narrative 02/22/2023 1:40 PM EDT Images from the original result were not included. Melanoma of conjunctiva OS s/p excision with cryo 05/14/2020 Juanpablo Hernandez MD [facility] ORDERABLES documented in this encounter Visit Diagnoses Diagnosis Malignant melanoma of conjunctiva, left documented in this encounter Care Teams Booth Cashier Relationship Specialty Start Date End Date Rodney Padilla MD [address] [place] [address] PCP - General 07/18/22 documented as of this encounter
--- OUTSIDE RECORDS SUMMARY | 2024-03-04 21:19 | XMS_ITS | Encounter Summary ---
Author Organization [facility] Address [facility] [place] [address] Care Team Providers Care Rf Technician Name Role Phone Rodney Padilla MD Primary Care Provider [phone] Reason for Visit * Reason Comments Medication Refill Encounter Details Date Type Department Care Team (Late st Contact Info) Description 02/26/2023 Refill Family Medicine at [facility] [address] [place] [address] Tamera Khan APRN [facility] [address] [place] [address] Type 2 diabetes mellitus with hyperglycemia, without [...] encounter Miscellaneous Notes * Telephone Encounter - Coco Dyer MA - 02/27/2023 3:11 PM EDT Prescription Renewal Request Name: Alize Gramajo : 1960 Prescription(s) Requested: Requested Prescriptions Pending Prescriptions Disp Refills freestyle lite strips [Pharmacy Med Name: FREESTYLE LITE TEST STRIP] 300 strip 3 Sig: USE TO TEST THREE TIMES A DAY Date of Encounter last in This Dept (If need an appointment send to secretaries to schedule): 02/22/23 Davey Next Encounter in This Dept: 02/28/2023 Date of Last Refill (for each medication): 06/24/22 Medication category requirements (labs etc): n/a Status of request: Pended Allergies Allergen Reactions Codeine Phosphate Nausea And Vomiting Erythromycin Base Nausea Only Azithromycin Ibuprofen Stomach upset Lisinopril cough Nsaids (Non-Steroidal Anti-Inflammatory Drug) Nausea And Vomiting Coco Dyer MA 02/27/23 3:11 PM documented in this encounter Plan of Treatment Upcoming Encounters Date Type Department Care Team (Late st Contact Info) Description 03/20/2024 9:00 AM EDT TH Visit (TeleHealth) Sleep Center at [facility] [address] [place] [phone] Denisse Hardwick, [facility] 03/20/2024 2:00 PM EDT Clinical Support Family Medicine at [facility] [address] [place] [phone] Julia Low, [facility] 05/01/2024 11:20 AM EDT Appointment Mammography/[place] [phone] Rodney Padilla MD [address] [facility] [place], [place] [id number] 05/01/2024 1:45 PM EDT Office [place] [address] Juanpablo Hernandez MD [facility] [place] [address] 01/30/2025 1:30 PM EDT Appointment Hematology [place] [address] 01/30/2025 3:[address] [place] [address] Arturo Cordero MD [facility] HEMATOLOGY AND ONCOLOGY [place], [place] [id number] 01/30/2025 4:15 PM EDT Office Visit [place]ology [place] [address] Arturo Cordero MD [facility] [place] [address] documented as of this encounter Visit Diagnoses Diagnosis Type 2 diabetes mellitus with hyperglycemia, without long-term current use of insulin documented in this encounter Care Teams Rf Technician Relationship Specialty Start Date End Date Rodney Padilla MD [address] [place] [address] PCP - General 07/18/22 documented as of this encounter
--- OUTSIDE RECORDS SUMMARY | 2024-03-04 21:19 | XMS_ITS | Encounter Summary ---
Author Organization [facility] [place] [address] Care Team Providers Care Vertical Boring Mill Operator Name Role Phone Rodney Padilla MD Primary Care Provider Reason for Referral * Consultation (Routine) - Closed Specialty Diagnoses / Procedures Referred By Gonzalez kumari Referred To Contact Diagnoses Chronic pain of right knee Calli Mariscal MD [facility] [place] [address] Orthopaedics, Four [facility] [address] [place] [address] Referral ID Status Reason Start Date Expiration Date V isits Requested Visits Authorized [id number] Closed Consult, Test & Treat 02/22/2023 08/21/2023 1 1 Reason for Visit * Reason Comments Bilateral Knee Pain Rt is worse Referral To Ortho Encounter Details Date Type Department Care Team (Late st Contact Info) Description 02/22/2023 11:30 AM EDT Office Visit Family Medicine at [facility] [address] [place] [address] Calli Mariscal MD [facility] [place] [address] Chronic pain of right knee Social History Tobacco Use Types Packs/Day Years [...] place to sleep or slept in a penitentiary (including now)? No 06/14/2021 Sex and Gender Information Value Date Recorded Sex Assigned at Not on file Gender Identity Not on file Sexual Orientation Not on file documented as of this encounter Last Filed Vital Signs Vital Sign Reading Time Taken Comments Blood Pressure 130/80 02/22/2023 11:35 AM EDT Pulse 72 02/22/2023 11:35 AM EDT Temperature 36.2 ??C (97.1 ??F) 02/22/2023 11:35 AM E DT Respiratory Rate - - Oxygen Saturation 97% 02/22/2023 11:35 AM EDT Inhaled Oxygen Concentration - - Weight 108.4 kg (239 lb) 02/22/2023 11:35 AM EDT Height 159.4 cm (5' 2.76) 02/22/2023 11:35 AM E DT Body Mass Index 42.66 02/22/2023 11:35 AM EDT documented in this encounter Progress Notes * Calli Mariscal MD - 02/22/2023 11:30 AM EDT FAMILY MEDICINE AT [facility] [address] [place] [address] Subjective: CHART REVIEW: Patient ID: Alize Gramajo is a 62 y.o. female , patient of Rodney Padilla MD here for Chief Complaint Patient presents with Bilateral Knee Pain Rt is worse Referral To Ortho HPI Bilateral knee pain- worse on right side Chronic in nature- for more than 2 years Slowly getting worse. More inflamed now also noticing some swelling in the leg. Aching type when resting, worse with ambulation and movements. Pain the inner aspect of knee and anterior knee. No radiation, no weakness. No recent injury, fall or trauma. Has tried heat locally- minimal relief Pt limits tylenol use due to h/o fatty liver Can't take nsaids on plavix Currently using a cane for ambulation. Pt have tried cortisone injections in the past which helped with pain for few months. 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 metFORMIN XR (Glucophage XR) 500 mg ER 24 hr tablet TAKE 2 TABLETS BY MOUTH TWICE DAILY WITH MEALS Yes albuteroL (Proventil HFA) 90 mcg/actuation HFA Aerosol Inhaler Inhale 2 puffs into the lungs every 4 hours as needed for wheeze. Use with spacer Yes Lantus Solostar U-100 Insulin 100 unit/mL (3 mL) pen Inject 10 Units subcutaneously nightly. Inject2-20 units based on BG Indications: type 2 diabetes mellitus Yes simvastatin (Zocor) 10 mg tablet Take 1 tablet by mouth daily. Yes Alcohol Swabs Pads, Medicated Apply 1 each topically daily. Yes insulin needles, disposable, 32 gauge x 5/32 Needle Inject 1 each subcutaneously daily. Indications: diabetes Yes nitroGLYcerin (Nitrostat) 0.[address] 1 tablet under the tongue See Admin Instructions. Yes fluticasone propionate (Flonase) 50 mcg/actuation Simpson, Suspension 1 spray by Each Nare route 2 times daily. Yes sucralfate (Carafate) 100 mg/mL Suspension TAKE 10 ML BY MOUTH FOUR TIMES A DAY Yes nystatin (MYCOSTATIN) 100,000 unit/gram Powder Apply topically 4 times daily. Yes freestyle lite strips 1 each by Other route 3 times daily. Use as instructed Indications: type 2 diabetes mellitus Yes budesonide-formoteroL (Symbicort) 80-4.5 mcg/actuation HFA Aerosol Inhaler Inhale 2 puffs into the lungs 2 times daily. Yes pantoprazole EC (Protonix) 40 mg Tablet, Delayed Release (E.C.) Take 1 tablet by mouth daily. Yes FreeStyle Lancets 28 gauge Misc 1 each by Other route 3 times daily. Indications: diabetes Yes losartan (Cozaar) 100 mg Tablet Take 1 tablet by mouth daily. Yes miconazole (Micotin) 2 % Cream Place 1 applicator vaginally nightly. Yes melatonin 10 mg Capsule Take 1 capsule by mouth nightly. Yes LORazepam (Ativan) 0.5 mg Tablet Yes busPIRone (Buspar) 30 mg Tablet Take 30 mg by mouth 2 times daily. Yes FreeStyle Lite Meter Kit Yes albuteroL (Proventil, Ventolin) (2.5 mg/3 mL) (0.083 %) Solution for Nebulization Take 3 mLs by nebulization every 4 hours as needed for Wheezing. Yes Nebulizer Accessories Misc 1 each by [facility]Non-Drug; Combo Route) route every 4 hours as needed (wheezing, cough, or shortness of breath). Supply per insurance preferred quantity Yes clopidogreL (Plavix) 75 mg Tablet Take 1 tablet by mouth daily. Yes loratadine (Claritin) 10 mg Tablet Take 1 tablet by mouth daily. Yes metoprolol succinate XL (Toprol XL) 25 mg Tablet Sustained Release 24 hr Take 1 tablet by mouth daily. Yes amLODIPine (Norvasc) 5 mg Tablet Take 1 tablet by mouth daily. Yes polyethylene glycoL (Miralax) 17 gram Powder in Packet Take 17 g by mouth daily. Yes traZODone (Desyrel) 100 mg Tablet Take 1 tablet by mouth nightly. Yes lamoTRIgine (LaMICtal) 100 mg Tablet Take 1 tablet by mouth daily. Yes aspirin EC 81 mg Tablet, Delayed Release (E.C.) Take 81 mg by mouth daily. Yes clotrimazole (Mycelex) 10 mg Tanner Take 1 tablet by mouth 5 times daily. Patient not taking: Reported on 02/22/2023 Allergies Allergen Reactions Codeine Phosphate Nausea And Vomiting Erythromycin Base Nausea Only Azithromycin Ibuprofen Stomach upset Lisinopril cough Nsaids (Non-Steroidal Anti-Inflammatory Drug) Nausea And Vomiting Review of Systems Constitutional: Negative for chills and fever. Musculoskeletal: Positive for arthralgias and joint swelling. Objective: BP 130/80 (BP Location (NBP): Left arm, Patient Position: Sitting, BP Cuff Sizes: Large Adult (32-43 cm)) Pulse 72 Temp 36.2 ??C (97.1 ??F) (Temporal) Ht 159.4 cm (5' 2.76) Wt 108.4 kg (239 lb) SpO2 97% BMI 42.66 kg/m?? Patient reported measures: Pain:7 Physical Health:[place]: 02/20/2023 12:04 PM PHQ-9 Score Only - All PHQ - 9 Score 5 (Mild Depression) PHQ - 9 Score (Patient) 5 (Mild Depression) Wt Readings from Last 3 Encounters: 02/22/23 108.4 kg (239 lb) 12/29/22 110.2 kg (242 lb 15.2 oz) 07/07/22 109.8 kg (242 lb) Physical Exam Eyes: Conjunctiva/sclera: Conjunctivae normal. Pupils: Pupils are equal, round, and reactive to light. Cardiovascular: Rate and Rhythm: Normal rate and regular rhythm. Pulmonary: Effort: Pulmonary effort is normal. Breath sounds: Normal breath sounds. Musculoskeletal: Right knee: Swelling and bony tenderness present. No erythema. Decreased range of motion. Tenderness present over the medial joint line and lateral joint line. Instability Tests: Anterior drawer test negative. Right lower leg: Edema present. Left lower leg: Edema present. Neurological: Mental Status: She is alert. Assessment and Plan: 1. Chronic pain of right knee Continue conservative treatment measures. Scheduled for knee injection. Also referred to see Ortho for further management. - Referral to Orthopaedics documented in this encounter Plan of Treatment Upcoming Encounters Date Type Department Care Team (Late st Contact Info) Description 03/20/2024 9:00 AM EDT TH Visit (TeleHealth) Sleep Center at [facility] [address] [place] [address] Denisse Hardwick, [facility] 03/20/2024 2:00 PM EDT Clinical Support Family Medicine at [facility] [address] [place] [phone] Julia Low [facility] 05/01/2024 11:20 AM EDT Appointment Mammography/[place] [phone] Rodney Padilla MD [address] [place] [address] 05/01/2024 1:45 PM EDT Office Visit Ophthalmology at [place] [phone] Juanpablo Hernandez MD [facility] [place] [address] 01/30/2025 1:30 PM EDT Appointment Hematology [place] [address] 01/30/2025 3:[address] [place] [phone] Arturo Cordero MD [facility] DR HEMATOLOGY [place] [address] 01/30/2025 4:15 PM EDT Office Visit Hematology [place] [address] Arturo Cordero MD [facility] DR HEMATOLOGY [place] [address] Scheduled Referrals Name Type Priority Associated Diagnoses Order Schedule Referral to Orthopaedics Outpatient Referral Routine Chronic pain of right knee Ordered: 02/22/2023 documented as of this encounter Visit Diagnoses Diagnosis Chronic pain of right knee documented in this encounter Care Teams Vertical Boring Mill Operator Relationship Specialty Start Date End Date Rodney Padilla MD [address] [place] [address] PCP - General 07/18/22 documented as of this encounter
--- OUTSIDE RECORDS SUMMARY | 2024-03-04 21:19 | XMS_ITS | Encounter Summary ---
Author Organization [facility] Address [facility] [place] [address] Care Team Providers Care Guitar Technician Name Role Phone Rodney Padilla MD Primary Care Provider [phone] Reason for Visit * Reason Comments Medication Management Encounter Details Date Type Department Care Team (Late st Contact Info) Description 12/01/2022 12:45 PM EDT TH Visit (TeleHealth) Family Medicine at [facility] [address] [place] [address] Julia Low, [facility] Medication management Social History Tobacco Use Types Packs/Day Years [...] this encounter Progress Notes * Julia Low RPH - 12/01/2022 12:45 PM EDT Clinical Pharmacist Consultation; Julia Low RPH Visit Type: Telehealth phone followup Diabetes Mellitus (DM) Medication Management Subjective Subjective: Patient ID: Aliez Gramajo is a 62 y.o. female She is here to re-establish care for their type II diabetes. Signed DM or Metabolic Syndrome collaborative practice agreement (CPA)? yes Length of DM [] New dx Year of diagnosis: unk earliest reports 2018 Diabetic complications: PMH notable for any of the following conditions: Yes [x] ID/Stroke/CAD [] Retinopathy [] CHF [x] Neuropathy [] [...] and uncooperative Pt's reasons for uncontrolled DM ?? Knee pain ?? Stress from finances ?? Shoulder/neck pain ?? Anxiety ?? Depression The pt is in a contemplative [...] of Missed doses/week None Clinical Practice Standards: ??? Statin:yes - simvastatin 10 mg ??? EBENEZER/ARB: yes - losartan 100 mg ??? Aspirin: yes - asa 81 mg and clopidogrel -Uses [facility] -Prefers oral therapies to injections but willing to try injectable meds Diabetes medication regimen: ??? Metformin XR 500 mg 2 tabs BID ??? DID NOT START Lantus 2 units daily Prior diabetes therapy trials: ??? Never started Rybelsus or Ozempic d/t fear of stomach SE/FARZAD ??? glimepiride caused hypoglycemia in the afternoon ??? Did not tolerate Tresiba Continues to feel lousy randomly despite stopping Tresiba but admits delaying her meals Home Glucose Monitoring are performed sporadically. 3 x weekly. Uses [employer] testing supplies Has Freestyle sanjana but has never worn and fears being unable to understand the results so elected not to try Before Brkfast Before Lunch After Lunch Before Supper After Supper BED 4-November 158 5-November 157 148 102 160 6-November 199 135 7-November 170 182 8-November 172 111 141 9-November 182 130 93 10-November 157 151 115 11-November 160 114 12-November 179 163 123 138 13-November 138 150 14-November 137 109 137 15-November 157 153 117 16-November 186 149 17-November 185 176 143 178 18-November 199 157 -November 192 101 20-November 148 140 -November 188 160 -November 194 124 -November 178 -November 188 144 -November 186 AM PIH PM BED Average 177 152 143 136 137 139 Lowest 137 130 143 93 137 117 Highest 199 176 143 182 137 160 Daily Avg 153 eA1c 7.662325 Prior Averages: 08/26/21 09/09/21 09/24/21 11/14/21 Daily Avg 157 168 131 138 175 eA1c 8.403410 8.46 7.20 7.44 8.7 Acute complications of diabetes: Have you had a low blood sugar reaction? If yes, how did you feel? No [] Denies [] Shaking [] Sweating [] Weakness/fatigue [] Dizziness [] Blurred vision [] Other Have you had high blood sugar? If yes, how did you feel? Unknown [] Denies [] Polydipsia [] Polyuria [] Polyphagia [] Other Nutrition/diet history: ??? Appetite: good ??? Meal Plan or Goals: set her meal times ??? Number of meals/day: 3 but randomly throughout the day, not at any set time Activity: ??? Pt is not incorporating routine exercise at this time. ??? List any problems/restrictions with exercise: Knee pain wants a referral to ortho ??? Considers themselves not active Objective Objective: Allergies and Drug intolerance: Allergies Allergen Reactions ??? Codeine Phosphate Nausea And Vomiting ??? Erythromycin Base Nausea Only ??? Azithromycin ??? Ibuprofen Stomach upset ??? Lisinopril cough ??? Nsaids (Non-Steroidal Anti-Inflammatory Drug) Nausea And Vomiting Medication List: Current Outpatient Medications Medication Sig Dispense Refill ??? Lantus Solostar U-100 Insulin 100 unit/mL (3 mL) pen Inject 2 Units subcutaneously nightly. Inject 2-20 units based on BG Indications: type 2 diabetes mellitus 15 mL 11 ??? Alcohol Swabs Pads, Medicated Apply 1 each topically daily. 100 each 3 ??? insulin needles, disposable, 32 gauge x 5/32 Needle Inject 1 each subcutaneously daily. Indications: diabetes 100 each 11 ??? nitroGLYcerin (Nitrostat) 0.[address] 1 tablet under the tongue See Admin Instructions. 30 tablet 5 ??? fluticasone propionate (Flonase) 50 mcg/actuation [place], Suspension 1 spray by Each Nare route 2 times daily. 16 g 11 ??? sucralfate (Carafate) 100 mg/mL Suspension TAKE 10 ML BY MOUTH FOUR TIMES A DAY 1242 mL 2 ??? nystatin (MYCOSTATIN) 100,000 unit/gram Powder Apply topically 4 times daily. 15 g 3 ??? psyllium Take 1 packet by mouth daily. 30 each 11 ??? freestyle lite strips 1 each by Other route 3 times daily. Use as instructed Indications: type 2 diabetes mellitus 300 each 3 ??? budesonide-formoteroL (Symbicort) 80-4.5 mcg/actuation HFA Aerosol Inhaler Inhale 2 puffs into the lungs 2 times daily. 3 each 3 ??? simvastatin (Zocor) 10 mg Tablet Take 1 tablet by mouth daily. 90 tablet 1 ??? peppermint oiL 50 mg Capsule, Delayed Release(E.C.) Take 1 capsule by mouth daily. 90 capsule 3 ??? simethicone (Gas Relief 80, simethicone,) 80 mg Tablet, Chewable Take 1 tablet by mouth every 6hours as needed for Flatulence. 30 tablet 3 ??? pantoprazole EC (Protonix) 40 mg Tablet, Delayed Release (E.C.) Take 1 tablet by mouth daily. 90 tablet 3 ??? FreeStyle Lancets 28 gauge Misc 1 each by Other route 3 times daily. Indications: diabetes 100 each 11 ??? losartan (Cozaar) 100 mg Tablet Take 1 tablet by mouth daily. 90 tablet 3 ??? miconazole (Micotin) 2 % Cream Place 1 applicator vaginally nightly. 45 g 0 ??? melatonin 10 mg Capsule Take 1 capsule by mouth nightly. ??? LORazepam (Ativan) 0.5 mg Tablet ??? busPIRone (Buspar) 30 mg Tablet Take 30 mg by mouth 2 times daily. ??? FreeStyle Lite Meter Kit ??? amoxicillin-clavulanate (Augmentin) 875-125 mg Tablet TAKE ONE TABLET BY MOUTH TWICE A DAY FOR 7 DAYS ??? clotrimazole (Mycelex) 10 mg Tanner Take 1 tablet by mouth 5 times daily. 25 Tanner 1 ??? albuteroL (Proventil, Ventolin) (2.5 mg/3 mL) (0.083 %) Solution for Nebulization Take 3 mLs bynebulization every 4 hours as needed for Wheezing. 90 mL 1 ??? Nebulizer Accessories Misc 1 each by [facility]Non-Drug; Combo Route) route every 4 hours as needed(wheezing, cough, or shortness of breath). Supply per insurance preferred quantity 10 each 11 ??? clopidogreL (Plavix) 75 mg Tablet Take 1 tablet by mouth daily. 90 tablet 3 ??? loratadine (Claritin) 10 mg Tablet Take 1 tablet by mouth daily. 90 tablet 3 ??? metoprolol succinate XL (Toprol XL) 25 mg Tablet Sustained Release 24 hr Take 1 tablet by mouthdaily. 90 tablet 3 ??? amLODIPine (Norvasc) 5 mg Tablet Take 1 tablet by mouth daily. 90 tablet 3 ??? metFORMIN XR (Glucophage XR) 500 mg Tablet Sustained Release 24 hr Take 2 tablets by mouth 2 times daily (with meals). 360 tablet 3 ??? albuteroL (Proventil HFA) 90 mcg/actuation HFA Aerosol Inhaler Inhale 2 puffs into the lungs every 4 hours as needed for wheeze. Use with spacer 1 each 11 ??? FreeStyle Sanjana 2 [place] Misc 1 each by Other route daily. Indications: diabetes mellitus 1 each 0 ??? FreeStyle Sanjana 2 Sensor Kit 1 each by Other route every 14 days. Indications: diabetes mellitus 2 kit 0 ??? polyethylene glycoL (Miralax) 17 gram Powder in Packet Take 17 g by mouth daily. 14 each 0 ??? traZODone (Desyrel) 100 mg Tablet Take 1 tablet by mouth nightly. 90 tablet 3 ??? lamoTRIgine (LaMICtal) 100 mg Tablet Take 1 tablet by mouth daily. 90 tablet 3 ??? aspirin EC 81 mg Tablet, Delayed Release (E.C.) Take 81 mg by mouth daily. No current facility-administered medications for this visit. Most Recent Vitals: BP Readings from Last 3 Encounters: 07/07/22 138/76 06/23/22 123/90 06/07/22 139/68 BMI Readings from Last 3 Encounters: 07/07/22 42.20 kg/m?? 06/23/22 42.62 kg/m?? 06/07/22 42.21 kg/m?? Wt Readings from Last 3 Encounters: 07/07/22 109.8 kg (242 lb) 06/23/22 110.9 kg (244 lb 7.8 oz) 06/07/22 109.8 kg (242 lb 2 oz) Pertinent Lab values: Lab Results Component Value Date NA 139 06/23/2022 K 4.1 06/23/2022 CL 104 06/23/2022 CO2 25 06/23/2022 BUN 12 06/23/2022 CREATININE 0.92 06/23/2022 GLUCOSE 274 (H) 06/23/2022 GLUCFASTING 116 (H) 06/29/2019 CALCIUM 9.6 06/23/2022 ESTGFR 70 06/23/2022 Last 3 Hemoglobin A1Cs Lab Results Component [...] Component Value Date HA1C 9.3 (A) 10/05/2022 ? ? Clinic A1c is not at goal based on referral specified goal of <7% on diabetes regimen consisting of metformin due to fearing additional meds OF Note pt's A1c has been elevated consistently since 2019 ??? Home glucose has been elevated per review pt is indicated for additional therapy at this time to support DM management. Based on review recommend a GLP-1 but pt fears GI SE. Alternative medication not associated with GI symptoms for a pt with elevated a1c for 3 years is basal insulin, but pt has not begun to use. Blood Pressure BP Readings from Last 3 Encounters: 07/07/22 138/76 06/23/22 123/90 06/07/22 139/68 ??? Clinic BP is well controlled with antihypertensive regimen consisting of losartan and amlodipine ??? Overdue for Ualb Cholesterol: Lipid Panel The ASCVD Risk score (Jose Alberto DK, et al., 2019) failed to calculate for the following reasons: Cannot find a previous HDL lab Cannot find a previous total cholesterol lab ??? NEED FLP Plan: Treatment changes: Diabetes Medication Regimen at conclusion of 12/01/22 encounter: ??? Metformin XR 500 mg 2 tabs BID ??? START Lantus 2 units daily There are no diagnoses linked to this encounter. Efforts to improve adherence to therapy plan (if necessary) will be directed at: ??? Continue SMBG twice daily FBG and before supper ??? Dietary goals: Reviewed setting meal times to avoid hypoglycemia from delayed meals Breakfast 930-10am Lunch 2pm Supper 6-7 pm Follow up in 1 month to review insulin use and SMBG Pt verbalized agreement and understanding of plan with no further questions at this time. Pt understands IF NO CPA ON FILE no changes to current drug regimen were made at the appointment and that RPhis providing recommendations for provider review and follow up. Julia Low RPH 12/01/22 Total time spent: 45 minutes documented in this encounter Plan of Treatment Upcoming Encounters Date Type Department Care Team (Late st Contact Info) Description 03/20/2024 9:00 AM EDT TH Visit (TeleHealth) Sleep [place] at [facility] [address] [place] [phone] Denisse Hardwick [facility] 03/20/2024 2:00 PM EDT Clinical Support Family Medicine at [facility] [address] [place] [phone] Julia Low RPH 05/01/2024 11:20 AM EDT Appointment Mammography/[place] [address] Rodney Padilla MD [address] [place] [address] 05/01/2024 1:45 PM EDT Office [place] [address] Juanpablo Hernandez MD [facility] [place] [address] 01/30/2025 1:30 PM EDT Appointment Hematology [place] [address] 01/30/2025 3:[address] [place] [address] Arturo Cordero MD [facility] DR HEMATOLOGY [place] [address] 01/30/2025 4:15 PM EDT Office Visit Hematology [place] [address] Arturo Cordero MD [facility] DR HEMATOLOGY [place] [address] documented as of this encounter Visit Diagnoses Diagnosis Medication management Encounter for long-term (current) use of other medications documented in this encounter Care Teams Guitar Technician Relationship Specialty Start Date End Date Rodney Padilla MD [address] [place] [address] PCP - General 07/18/22 documented as of this encounter
--- OUTSIDE RECORDS SUMMARY | 2024-03-04 21:19 | XMS_ITS | Encounter Summary ---
Author Organization [place] [address] Care Team Providers Care X Ray Inspector Name Role Phone Rodney Padilla MD Primary Care Provider [phone] Encounter Details Date Type Department Care Team (Late st Contact Info) Description 02/20/2023 [place] [phone] Lakshmi Castellanos RN Social History Tobacco Use Types Packs/Day [...] encounter Miscellaneous Notes * Telephone Encounter - Lakshmi Castellanos RN - 02/20/2023 10:31 AM EDT [facility] Call Documentation Birthdate: 1960 Call Date: Age: 62 Years Work Phone: Work Phone: Gender: Female Time: [place] [address] Address: [place] [address] Address: PCP: Unknown, [address] - Relationship to Caller: Self Org: [address] Chief Complaint: KNEE Call Outcome: See MD Within 24 Hours Client: Company: [facility] PhoneLine1: [facility], Triage Patient: Alize Gramajo Caller Is: Alize Gramajo 02/20/2023 10:30 Mbr ID: Email: Preliminary Assessment Notes & Patient/Caller Notes: Chief Complaint: R knee pain Onset: ongoing- years Describe Sx: R knee pain, has had cortisone shot before and it helped, is using a cane, already hadan x-ray done of knee on 02/03, swelling comes and goes, gets worse as the day goes on, denies red streaks, able to walk Precipitating Factors: heating pad Pain scale/0-10: depends on the day-sitting then gets up (intolerable) but then it gets better wants a cortisone shot on Monday -patient states she is already coming to [facility] for an eye appointment and wants to be seen then NOTES: patient states they already made her an appointment for Monday at 4:00 PM, RN confirmed appointment was not already made and sent her to appointment line Patient / Caller Notes: DIAGNOSED PROBLEMS: MEDICATIONS: should have a list too many to remember ALLERGIES: pain meds make her sick, nsaids 02/20/2023 10:33:26 LB1 FULL COURSE OF COVID IMMUNIZATION?: ANNUAL FLU SHOT?: Pt. Jad/Alerts : Nursing Documentation: Triage By: LB1 Guideline: Knee Pain - (Adult After-Hours) [[id number]] Triage Level: Pre Disposition: RN Override: See Physician within 24 Hours See/call Doctor Disagree Reason: Go to Facility: Patient Understands Instructions: Yes Questions / Responses For: Knee Pain - (Adult After-Hours) [[id number]] TRIAGE QUESTION (TRIGGERING DISPOSITION) Response [1] Very swollen joint AND [2] no fever R/O: forgotten trauma, arthritis CARE ADVICE Response 1. CARE ADVICE given per Knee Pain (Adult) guideline. Alize Gramajo Triage #: [id number] - [KNEE] Page 1 of 2 MD Paging: Paged Paged Date & Time Sent By Paging Method Device Address Status of page Message: Lakshmi Castellanos MD- Zuleyma Azevedo Unknown Responded 02/20/2023 10:43:50 AM EXTERNAL EXTERNAL see physician within 24 hours: 7. CALL BACK IF: * Fever occurs * You become worse. 44. SEE PCP OR VIDEO VISIT WITHIN 24 HOURS: * IF OFFICE WILL BE OPEN: You need to be examined within the next 24 hours or have a video telemedicine visit. Call your doctor (or DINKEY DISPATCHER/PA) when the office opens and make an appointment. 1001. PAIN MEDICINES: * For pain relief, you can take either acetaminophen, ibuprofen, or naproxen. * Before taking any medicine, read all the instructions on the package. Alize Gramajo Triage #: [id number] - [KNEE] Page 2 of 2 documented in this encounter Plan of Treatment Upcoming Encounters Date Type Department Care Team (Late st Contact Info) Description 03/20/2024 9:00 AM EDT TH Visit (TeleHealth) Sleep Center at [facility] [address] [place] [phone] Denisse Hardwick, [facility] 03/20/2024 2:00 PM EDT Clinical Support Family [facility] [address] [place] [phone] Julia Low, [facility] 05/01/2024 11:20 AM EDT Appointment Mammography/[place] [address] Rodney Padilla MD [address] [facility] [place] [address] 05/01/2024 1:45 PM EDT Office [place] [address] Juanpablo Hernandez MD [facility] [place] [address] 01/30/2025 1:30 PM EDT Appointment Hematology [place] [address] 01/30/2025 3:[address] [place] [address] Arturo Cordero MD [facility] DR HEMATOLOGY AND ONCOLOGY [place], [place] [id number] 01/30/2025 4:15 PM EDT Office Visit Hematology [place] [address] Arturo Cordero MD [facility] DR [place] [address] documented as of this encounter Visit Diagnoses Not on filedocumented in this encounter Care Teams X Ray Inspector Relationship Specialty Start Date End Date Rodney Padilla MD [address] [place] [address] PCP - General 07/18/22 documented as of this encounter
--- OUTSIDE RECORDS SUMMARY | 2024-03-04 21:19 | XMS_ITS | Encounter Summary ---
Author Organization [facility] Address [facility] [place] [address] Care Team Providers Care Lead Neurodiagnostic Technologist Name Role Phone Rodney Padilla MD Primary Care Provider [phone] Encounter Details Date Type Department Care Team (Latest Contact Info) Description 01/05/2023 Travel Social History Tobacco Use Types Packs/Day [...] [facility] [address] [place] [phone] Denisse Hardwick, [facility] 03/20/2024 2:00 PM EDT Clinical Support Family Medicine at [facility] [address] [place] [phone] Julia Low, [facility] 05/01/2024 11:20 AM EDT Appointment Mammography/[place] [address] Rodney Padilla MD [address] [facility] [place], [place] [id number] 05/01/2024 1:45 PM EDT Office [place] [address] Juanpablo Hernandez MD [facility] [place] [address] 01/30/2025 1:30 PM EDT Appointment Hematology [place] [address] 01/30/2025 3:[address] [place] [address] Arturo Cordero MD [facility] DR HEMATOLOGY [place] [address] 01/30/2025 4:15 PM EDT Office Visit Hematology [place] [address] Arturo Cordero MD [facility] DR HEMATOLOGY [place] [address] documented as of this encounter Visit Diagnoses Not on filedocumented in this encounter Care Teams Lead Neurodiagnostic Technologist Relationship Specialty Start Date End Date Rodney Padilla MD [address] [place] [address] PCP - General 07/18/22 documented as of this encounter
--- OUTSIDE RECORDS SUMMARY | 2024-03-04 21:19 | XMS_ITS | Encounter Summary ---
Author Organization [facility] Address [facility] [place] [address] Care Team Providers Care Target Aircraft Technician Name Role Phone Rodney Padilla MD Primary Care Provider [phone] Encounter Details Date Type Department Care Team (Latest Contact Info) Description 11/30/2022 Travel Social History Tobacco Use Types Packs/Day [...] EDT TH Visit (TeleHealth) Sleep Center at [facility] [address] [place] [phone] Denisse Hardwick, [facility] 03/20/2024 2:00 PM EDT Clinical Support Family Medicine at [facility] [address] [place] [phone] Julia Low, [facility] 05/01/2024 11:20 AM EDT Appointment Mammography/[place] [address] Rodney Padilla MD [address] [facility] [place], [place] [id number] 05/01/2024 1:45 PM EDT Office Visit [place] [address] Juanpablo Hernandez MD [facility] [place] [address] 01/30/2025 1:30 PM EDT Appointment Hematology [place] [address] 01/30/2025 3:[address] [place] [address] Arturo Cordero MD [facility] [place] [address] 01/30/2025 4:15 PM EDT Office Visit Hematology [place] [address] Arturo Cordero MD [facility] [address] [place] [address] documented as of this encounter Visit Diagnoses Not on filedocumented in this encounter Care Teams Target Aircraft Technician Relationship Specialty Start Date End Date Rodney Padilla MD [address] [place] [place] [address] PCP - General 07/18/22 documented as of this encounter
--- OUTSIDE RECORDS SUMMARY | 2024-03-04 21:19 | XMS_ITS | Encounter Summary ---
Author Organization [facility] Address [facility] [place] [address] Care Team Providers Care Mergers And Acquisitions Consultant Name Role Phone Rodney Padilla MD Primary Care Provider +1- [phone] Reason for Visit * Reason Comments Medication Refill Encounter Details Date Type Department Care Team (Late st Contact Info) Description 02/19/2023 Refill Family Medicine at [facility] [address] [place] [address] Luis E Narayan MD [facility] [address] LIL[address] [facility] [address] Social History Tobacco Use Types Packs/Day Years [...] Telephone Encounter - Jade Kruse MA - 02/20/2023 3:20 PM EDT Prescription Renewal Request Name: Alize Gramajo : 1960 Prescription(s) Requested: Requested Prescriptions Pending Prescriptions Disp Refills metFORMIN XR (Glucophage XR) 500 mg ER 24 hr tablet [Pharmacy Med Name: METFORMIN HCL ER 500 MG TABLET] 360 tablet 3 Sig: TAKE 2 TABLETS BY MOUTH TWICE DAILY WITH MEALS Date of Encounter last in This Dept (If need an appointment send to secretaries to schedule): 07/07/2022 Bill Next Encounter in This Dept: 02/22/2023 Date of Last Refill (for each medication): 02/23/2022 360 w 3 refill Medication category requirements (labs etc): Lab Results Component Value Date HA1C 9.3 (A) 10/05/2022 Status of request: Pended Allergies Allergen Reactions Codeine Phosphate Nausea And Vomiting Erythromycin Base Nausea Only Azithromycin Ibuprofen Stomach upset Lisinopril cough Nsaids (Non-Steroidal Anti-Inflammatory Drug) Nausea And Vomiting Jade D Lowe, MA 02/20/23 3:21 PM documented in this encounter Plan of Treatment Upcoming Encounters Date Type Department Care Team (Late st Contact Info) Description 03/20/2024 9:00 AM EDT TH Visit (TeleHealth) Sleep Center at [facility] [address] [place] [phone] Denisse Hardwick, [facility] 03/20/2024 2:00 PM EDT Clinical Support Family Medicine [facility] [address] [place] [address] Julia Low, [facility] 05/01/2024 11:20 AM EDT Appointment Mammography/DXA at [place] [phone] Rodney Padilla MD [address] [place] [address] 05/01/2024 1:45 PM EDT Office Visit Ophthalmology at [place] [phone] Juanpablo Hernandez MD [facility] [address] 01/30/2025 1:30 PM EDT Appointment Hematology [place] [address] 01/30/2025 3:[address] [place] [address] Arturo Cordero MD [facility] DR [place] [address] 01/30/2025 4:15 PM EDT Office Visit Hematology [place] [address] Arturo Cordero MD [facility] DR HEMATOLOGY [place] [address] documented as of this encounter Visit Diagnoses Not on filedocumented in this encounter Care Teams Mergers And Acquisitions Consultant Relationship Specialty Start Date End Date Rodney Padilla MD [address] [place] [address] PCP - General 07/18/22 documented as of this encounter
--- OUTSIDE RECORDS SUMMARY | 2024-03-04 21:19 | XMS_ITS | Encounter Summary ---
Author Organization [facility] [address] Care Team Providers Care Principal Military Analyst Name Role Phone Rodney Padilla MD Primary Care Provider Encounter Details Date Type Department Care Team (Latest Contact Info) Description 12/29/2022 9:45 AM EDT - 12/29/2022 11:59 PM EDT Hospital Encounter [place]ology [place] [address] Malignant melanoma of conjunctiva, left Discharge Disposition: [...] by mouth daily. 90 tablet 12/16/2022 02/27/2023 Lantus Solostar U-100 Insulin 100 unit/mL (3 mL) penIndications:type 2 diabetes mellitus Inject 2 Units subcutaneously nightly. Inject 2-20 units based on BG Indications: type 2 diabetes mellitus 15 mL 11 11/11/2022 01/05/2023 Alcohol Swabs Pads, MedicatedIndications: Type 2 diabetes mellitus with hyperglycemia, without long-term current use of insulin Apply 1 each topically daily. 100 each 3 11/07/2022 11/02/2023 insulin needles, disposable, 32 gauge x 32 NeedleIndications:true dunham mellitus Inject 1 each subcutaneously daily. Indications: diabetes 100 each 11 10/05/2022 11/02/2023 nitroGLYcerin (Nitrostat) 0.[address] 1 tablet under the tongue See Admin Instructions. 30 tablet 5 09/26/2022 09/19/2023 fluticasone propionate (Flonase) 50 mcg/actuation [place], Suspension 1 spray by Each Nare route [...] Supply per insurance preferred quantity 10 each 04/08/2022 09/19/2023 clopidogreL (Plavix) 75 mg Tablet [...] 1 each 12/10/2021 02/04/2023 FreeStyle Sanjana 2 [place] MiscIndications:diabe escobar mellitus 1 each by Other [...] at [facility] [address] [place] [phone] Denisse Hardwick, [facility] 03/20/2024 2:00 PM EDT Clinical Support Family Medicine at [facility] [address] [place] [phone] Julia Low, [facility] 05/01/2024 11:20 AM EDT Appointment Mammography/[place] [address] Rodney Padilla MD [address] [place] [address] 05/01/2024 1:45 PM EDT [place] [address] Juanpablo Hernandez MD [facility] DR [place] [address] 01/30/2025 1:30 PM EDT Appointment [place]ology [place] [address] 01/30/2025 3:[address] [place] [address] Arturo Cordero MD [facility] DR HEMATOLOGY AND ONCOLOGY [place], [place] [phone] 01/30/2025 4:15 PM EDT Office Visit [place]ematology [place] [phone] Arturo Cordero MD [facility] DR HEMATOLOGY [place] [address] documented as of this encounter Procedures Procedure Name Priority Date/Time Associated Diagnosis Comments HEMOGRAM Routine 12/29/2022 10:00 AM EDT Malignant melanoma of conjunctiva, left DIFFERENTIAL, AUTOMATED Routine 12/29/2022 10:00 AM EDT Malignant melanoma of conjunctiva, left CBC (WITH DIFF) Routine 12/29/2022 10:00 AM EDT Malignant melanoma of conjunctiva, left HC VENIPUNCTURE Routine 12/29/2022 10:00 AM EDT Malignant melanoma of conjunctiva, left COMPREHENSIVE METABOLIC PANEL Routine 12/29/2022 10:00 AM EDT Malignant melanoma of conjunctiva, left documented in this encounter Results * Differential, Automated (12/29/2022 10:00 AM EDT) Neutrophil % 66.5 % [facility] Neutrophil Absolute 4.82 1.70 - 6.10 x10(3)/[facility] LABORATORY Lymph % 24.4 % [facility] Lymphocytes Abs 1.8 0.9 - 3.2 x10(3)/[facility] LABORATORY Monocyte % 6.4 % [facility] Monocyte Abs 0.5 0.3 - 0.9 x10(3)/[facility] Eos % 1.7 % [facility] Eosinophils Abs 0.1 0.0 - 0.4 x10(3)/[facility] LABORATORY Basophil % 0.7 % [facility] Baso Absolute 0.0 0.0 - 0.1 x10(3)/[facility] LABORATORY Immature Gran % 0.30 % [facility] Comment: Immature granulocytes(IG's)percentage and absolute count will include metamyelocytes, myelocytes, and promyelocytes. Blood smears from CBCs yielding IG's will be scanned manually for concordance. If this scan disagrees with the automated IG or if promyelocytes are noted, a manual differential will be performed. Immature Gran Absolute 0.02 0.00 - 0.04 x10(3)/[facility] LABORATORY Blood 12/29/2022 10:0 0 AM EDT 12/29/2022 10:13 AM EDT Narrative Resulting Agency Comment Spec In Lab Mer Trejo MD HEMATOLOGY ORDER SHYLA [facility] [place] [address] * (ABNORMAL) Hemogram (12/29/2022 10:00 AM EDT) White Blood Cell 7.2 4.0 - 9.5 x10(3)/[facility] LABORATORY Red Blood Cell 4.67 4.00 - 5.21 x10(6)/[facility] LAB[facility]ORY Hemoglobin 13.1 11.7 - 15.5 g/dL [facility] Hematocrit 39.8 35.7 - 45.8 % [facility] Mean Cell Volume 85.2 82.6 - 94.4 fL [facility] Mean Cell Hemoglobin 28.1 27.1 - 32.0 pg [facility] Mean Cell Hemoglobin Concentration 32.9 31.7 - 35.0 g/dL [facility] Platelet 362(H) 145 - 357 x10(3)/mc L [facility] RDW Standard Deviation 45.0 37.0 - 46.0 fL [facility] RDW coefficient of variation 14.6(H) 11.5 - 14.1 % [facility] Mean Platelet Volume 9.3 7.6 - 12.[address] [facility] NRBC% auto 0.0 % [facility] NRBC Absolute 0.000 0.000 - 0.000 x10(3)/mc L [facility] Blood 12/29/2022 10:0 0 AM EDT 12/29/2022 10:13 AM EDT Narrative Resulting Agency Comment Spec In Lab Mer L Faheem Trejo MD HEMATOLOGY ORDER SHYLA [facility] [place] [address] * (ABNORMAL) Comprehensive metabolic panel (non-fasting) (12/29/2022 10:00 AM EDT) Glucose 259(H) 65 - 199 mg/dL [facility] Comment:Diabetes: >=200 mg/d L plus symptoms Blood Urea Nitrogen 17 8 - 18 mg/dL [facility] Creatinine 0.84 0.70 - 1.20 mg/dL [facility] Sodium 140 135 - 145 mmol/L [facility] Potassium 4.5 3.5 - 5.0 mmol/L [facility] Comment: Please note: ??Patients with WBC >100,000 may have falsely elevated Potassium levels. ??For accurate Potassium quantification in these patients send serum separator tube (gold top) for subsequent determinations. ??Contact the Clinical Chemistry Laboratory if there are any questions. Chloride 104 98 - 107 mmol/L [facility] Carbon Dioxide 23 22 - 31 mmol/L [facility] Anion Gap 13 5 - 15 mmol/L [facility] Calcium 9.5 8.5 - 10.5 mg/dL [facility] Protein, Total 6.9 6.1 - 8.0 g/dL [facility] Albumin 4.1 3.2 - 5.2 g/dL [facility] Aspartate Aminotransferase 19 0 - 30 unit/L [facility] Alanine Aminotransferase 24 0 - 30 unit/L [facility] Alkaline Phosphatase 103 35 - 105 unit/L [facility] Bilirubin, Total 0.3 0.2 - 1.3 mg/dL [facility] Est Glomerular Filtration Rate 78 >=60 mL/min/1. 73 m?? [facility] Comment: This patient's estimated GFR [...] and symptoms in addition to eGFR. Blood 12/29/2022 10:0 0 AM EDT 12/29/2022 10:13 AM EDT Narrative Resulting Agency Comment Spec In Lab Arturo Cordero MD CHEMISTRY ORDERABLES Performing Organization Address [facility] Co de Phone Number [facility] [place] [address] * Lactate Dehydrogenase (12/29/2022 10:00 AM EDT) Lactate Dehydrogenase 175 110 - 220 unit/L [facility] Blood 12/29/2022 10:0 0 AM EDT 12/29/2022 10:13 AM EDT Narrative Resulting Agency Comment Spec In Lab Arturo Cordero MD CHEMISTRY ORDERABLES Performing Organization Address [facility] Co de Phone Number [facility] [place] [address] documented in this encounter Visit Diagnoses Diagnosis Malignant melanoma of conjunctiva, left documented in this encounter Care Teams Principal Military Analyst Relationship Specialty Start Date End Date Rodney Padilla MD [address] [place] [address] PCP - General 07/18/22 documented as of this encounter
--- OUTSIDE RECORDS SUMMARY | 2024-03-04 21:19 | XMS_ITS | Encounter Summary ---
Author Organization [facility] Address [facility] [place] [address] Care Team Providers Care Md Senior Research Scientist Name Role Phone Rodney Padilla MD Primary Care Provider +1- [phone] Reason for Visit * Reason Comments Medication Refill Encounter Details Date Type Department Care Team (Late st Contact Info) Description 02/26/2023 Refill Family Medicine at [facility] [address] [place] [address] Luis E Narayan MD [facility] DR [address] [place] [address] Mixed hyperlipidemia Social History Tobacco Use Types [...] Telephone Encounter - Lucien Moore CMA - 02/27/2023 3:12 PM EDT Prescription Renewal Request Name: Alize Gramajo : 1960 Prescription(s) Requested: Requested Prescriptions Pending Prescriptions Disp Refills metoprolol succinate XL (Toprol-XL) 25 mg ER 24 hr tablet [Pharmacy Med Name: METOPROLOL SUCC ER 25MG TAB] 90 tablet 3 Sig: TAKE ONE TABLET BY MOUTH EVERY DAY simvastatin (Zocor) 10 mg tablet [Pharmacy Med Name: SIMVASTATIN 10 MG TABLET] 90 tablet 1 Sig: TAKE ONE TABLET BY MOUTH EVERY DAY Date of Encounter last in This Dept (If need an appointment send to secretaries to schedule): 02/22/23 Next Encounter in This Dept: 02/28/2023 Date of Last Refill (for each medication): 03/29/22#90/3 12/16/22#90/0 Medication category requirements (labs etc): BP Readings from Last 3 Encounters: 02/23/23 140/88 02/22/23 130/80 12/29/22 (!) 134/95 Lab Results Component Value Date CREATININE 0.84 [...] Drug) Nausea And Vomiting Lucien Moore CMA 02/27/23 3:12 PM documented in this encounter Plan of Treatment Upcoming Encounters Date Type Department Care Team (Late st Contact Info) Description 03/20/2024 9:00 AM EDT TH Visit (TeleHealth) Sleep Center at [facility] [address] [place] [phone] Denisse Hardwick, [facility] 03/20/2024 2:00 PM EDT Clinical Support Family Medicine at [facility] [address] [place] [address] Julia Low, [facility] 05/01/2024 11:20 AM EDT Appointment Mammography/[place] [phone] Rodney Padilla MD [address] [place] [place] [address] 05/01/2024 1:45 PM EDT Office [place] [address] Juanpablo Hernandez MD [facility] [place] [address] 01/30/2025 1:30 PM EDT Appointment Hematology and Oncology at [place] [address] 01/30/2025 3:[address] Scan at [address] [place] [address] Arturo Cordero MD [facility] DR [place] [address] 01/30/2025 4:15 PM EDT Office Visit Hematology and Oncology at [place] [phone] Arturo Cordero MD [facility] DR [place] [address] documented as of this encounter Visit Diagnoses Diagnosis Mixed hyperlipidemia documented in this encounter Care Teams Md Senior Research Scientist Relationship Specialty Start Date End Date Rodney Padilla MD [address] [place] [address] PCP - General 07/18/22 documented as of this encounter
--- OUTSIDE RECORDS SUMMARY | 2024-03-04 21:19 | XMS_ITS | Encounter Summary ---
Author Organization [facility] Address [facility] [place] [address] Care Team Providers Care Explosives Truck Driver Name Role Phone Rodney Padilla MD Primary Care Provider +1- [phone] Encounter Details Date Type Department Care Team (Latest Contact Info) Description 02/22/2023 Travel Social History Tobacco Use Types Packs/Day [...] EDT TH Visit (TeleHealth) Sleep Center at [facility] [address] [place] [phone] Denisse Hardwick, [facility] 03/20/2024 2:00 PM EDT Clinical Support Family Medicine at [facility] [address] [place] [address] Julia Low, [facility] 05/01/2024 11:20 AM EDT Appointment Mammography/[place] [address] Rodney Padilla MD [address] [facility] [place], [place] [address] 05/01/2024 1:45 PM EDT Office [place] [address] Juanpablo Hernandez MD [facility] [place] [address] 01/30/2025 1:30 PM EDT Appointment Hematology [place] [address] 01/30/2025 3:[address] [place] [address] Arturo Cordero MD [facility] DR HEMATOLOGY [place] [address] 01/30/2025 4:15 PM EDT Office Visit Hematology [place] [address] Arturo Cordero MD [facility] DR HEMATOLOGY [place] [address] documented as of this encounter Visit Diagnoses Not on filedocumented in this encounter Care Teams Explosives Truck Driver Relationship Specialty Start Date End Date Rodney Padilla MD [address] [place] [address] PCP - General 07/18/22 documented as of this encounter
--- OUTSIDE RECORDS SUMMARY | 2024-03-04 21:19 | XMS_ITS | Encounter Summary ---
Author Organization [facility] Address [facility] [place] [address] Care Team Providers Care Shingle Sawyer Name Role Phone Rodney Padilla MD Primary Care Provider +1- [phone] Reason for Visit * Reason Onset Date Comments Medication Refill 03/21/2023 Encounter Details Date Type Department Care Team (Late st Contact Info) Description 03/21/2023 Refill Family Medicine at [facility] [address] [place] [address] Suzanne Martinez, KATH[facility] [address] [place] [address] Social History Tobacco Use Types Packs/Day Years [...] Telephone Encounter - Lucien Moore, FAWAD - 03/22/2023 9:58 AM EDT Prescription Renewal Request Name: Alize Gramajo : 1960 Prescription(s) Requested: Requested Prescriptions Pending Prescriptions Disp Refills losartan (Cozaar) 100 mg tablet 90 tablet 3 Sig: Take 1 tablet by mouth daily. Date of Encounter last in This Dept (If need an appointment send to secretaries to schedule): 02/28/23pcp Next Encounter in This Dept: 05/01/2023 Date of Last Refill (for each medication): 05/18/22#90/3 Medication category requirements (labs etc): BP Readings [...] Drug) Nausea And Vomiting Lucien Moore CMA 03/22/23 9:58 AM documented in this encounter Plan of Treatment Upcoming Encounters Date Type Department Care Team (Late st Contact Info) Description 03/20/2024 9:00 AM EDT TH Visit (TeleHealth) Sleep Center at [facility] [address] [place] [address] Denisse Hardwick, [facility] 03/20/2024 2:00 PM EDT Clinical Support Family Medicine at [facility] [address] [place] [phone] Julia Low, [facility] 05/01/2024 11:20 AM EDT Appointment Mammography/[place] [address] Rodney Padilla MD [address] [facility] [place], [place] [address] 05/01/2024 1:45 PM EDT Office [place] [address] Juanpablo Hernandez MD [facility] DR OPHTHALMOLOGY [place], [place] [address] 01/30/2025 1:30 PM EDT Appointment Hematology [place] [address] 01/30/2025 3:[address] [place] [phone] Arturo Cordero MD [facility] [place] [address] 01/30/2025 4:15 PM EDT Office Visit Hematology [place] [address] Arturo Cordero MD [facility] H[place]ATOLOG[place] [address] documented as of this encounter Visit Diagnoses Not on filedocumented in this encounter Care Teams Shingle Sawyer Relationship Specialty Start Date End Date Rodney Padilla MD [address] [place] [address] PCP - General 07/18/22 documented as of this encounter
--- OUTSIDE RECORDS SUMMARY | 2024-03-04 21:19 | XMS_ITS | Encounter Summary ---
Author Organization [facility] Address [facility] [place] [address] Care Team Providers Care Foundation Digger Name Role Phone Rodney Padilla MD Primary Care Provider [phone]- [phone] Reason for Visit * Reason Comments Diabetes Hyperlipidemia Encounter Details Date Type Department Care Team (Late st Contact Info) Description 01/23/2023 9:30 AM EDT TH Visit (TeleHealth) Family Medicine at [facility] [address] [place] [address] Julia Low, [facility] Type 2 diabetes mellitus without long-term [...] Progress Notes * Julia Low RP - 01/23/2023 9:30 AM EDT Clinical Pharmacist Consultation; Julia Low [...] any of the following conditions: Yes [x] GA/Stroke/CAD [] Retinopathy [] CHF [x] Neuropathy [] [...] XR 500 mg 2 tabs BID Lantus 7 units daily; increased 01/18/23 is titrating slower than every 3 days, but will increase when FBG remains >150 Prior diabetes therapy trials: Never started Rybelsus [...] After Lunch Before Supper After Supper BED Insulin Doses -Jan 209 174 171 195 205 132 148 183 144 174 128 195 6 195 145 143 221 131 168 181 163 173 170 154 122 200 155 164 195 7 units 179 176 201 129 170 134 171 153 AM PHI PM BED Average 181 163 198 150 152 160 Lowest 143 128 174 122 134 148 Highest 209 205 221 195 170 168 Daily Avg 168 eA1c 8.99407 Prior Averages: 08/26/21 09/09/21 09/24/21 11/14/21 11/03/22 12/01/2201/03/23 Daily Avg 157 168 131 138 175 153 176 eA1c 8.33279 8.46 7.20 7.44 8.7 7.95 8.75 Acute [...] [] Polyuria [] Polyphagia [] Other [facility] visit on 01/07 for hyperglycemia BG>300 Instructions were to increase water intake when hyperglycemia occurs. I added today if BG reading is ever recorded as HIGH to also call clinic. Nutrition/diet history: Appetite: good Meal Plan or Goals: set her meal times, switch from cereal to yogurt, decrease late night eating Grandkids remind her to avoid sweets Number of meals/day: 3 but randomly throughout the day, not at set times Identifies her late night snacking increases her BG but reports with her stress she is unable to change this behavior. Activity: Pt is incorporating exercise at this time when she watches her grandkids and goes to camp on weekends Needs an appt with ortho List any problems/restrictions with exercise: Knee pain wants a referral to ortho Considers themselves not active Objective Objective: Allergies and Drug intolerance: Allergies Allergen Reactions Codeine Phosphate Nausea And Vomiting Erythromycin Base Nausea Only Azithromycin Ibuprofen Stomach upset Lisinopril cough Nsaids (Non-Steroidal Anti-Inflammatory Drug) Nausea And Vomiting Medication List: Current Outpatient Medications Medication Sig Dispense Refill Mack Diego U-100 Insulin 100 unit/mL (3 mL) pen Inject 5 Units subcutaneously nightly. Inject 2-20 units based on BG Indications: type 2 diabetes mellitus 15 mL 11 simvastatin (Zocor) 10 mg tablet Take 1 tablet by mouth daily. 90 tablet 0 Alcohol Swabs Pads, Medicated Apply 1 each topically daily. 100 each 3 insulin needles, disposable, 32 gauge x 5/32 Needle Inject 1 each subcutaneously daily. Indications: diabetes 100 each 11 nitroGLYcerin (Nitrostat) 0.[address] 1 tablet under the tongue See Admin Instructions. 30 tablet 5 fluticasone propionate (Flonase) 50 mcg/actuation [place], Suspension 1 spray by Each Nare route [...] spacer 1 each 11 FreeStyle Sanjana 2 Primrose Misc 1 each by Other route daily. [...] and Lantus. She does fear additional meds OF Note pt's A1c has been elevated consistently since 2019 Appears adherent without SE. Pt has appropriately dosed her insulin by increasing 2 units every 3-5days based on elevated FBG. Home glucose has been elevated per review but is trending down as she titrates her insulin. I will recommend another increase and continue titration guide for adjusting her insulin doses to FBG<150. Will follow up closely until insulin dose can be set. Pt is indicated for additional therapy at this time to support DM management. Based on review recommend a GLP-1 but pt fears GI SE. So we started basal insulin From review pt's BGs improve when she is active babysitting her grandkids. Shifted to a focus on activity as next lifestyle goal as pt has been challenged with diet goals due to her inconsistent eating schedule and anxiety. Blood Pressure BP Readings from Last 3 [...] changes: Diabetes Medication Regimen at conclusion of 01/23/23 encounter: Metformin XR 500 mg 2 tabs BID INCREASE Lantus 10 units daily; increased dose by 1 units every 3 days if FBG >150 Diagnoses and all orders for this visit: Type 2 diabetes mellitus without long-term current use of insulin - Hemoglobin A1c; Future - Lipid Panel (Reflex Direct LDL); Future Efforts to improve adherence to therapy plan (if necessary) will be directed at: Congratulated on SMBG 2-3x daily Repeat A1c and FLP; orders placed Encouraged diet goals: Consistent lunch and super times Avoid snacking after supper Switch from cereal to yogurt (increase protein) Activity goal: establish a routine for exercise 2-3x weekly Follow up in 2-3 weeks to titrate insulin dose; pt aware that if PharmD is on leave we will reconnect in May. Will message or call with lab results Pt calling to get appt with PCP to review her knee Pt verbalized agreement and understanding of plan with no further questions at this time. Pt understands IF NO CPA ON FILE no changes to current drug regimen were made at the appointment and that RPhis providing recommendations for provider review and follow up. Julia Low RPH 01/23/23 Total time spent: 45 minutes documented in this encounter Plan of Treatment Upcoming Encounters Date Type Department Care Team (Late st Contact Info) Description 03/20/2024 9:00 AM EDT TH Visit (TeleHealth) Sleep Center at [facility] [address] [place] [phone] Denisse Hardwick [facility] 03/20/2024 2:00 PM EDT Clinical Support Family Medicine at [facility] [address] [place] [address] Julia Low RPH 05/01/2024 11:20 AM EDT Appointment Mammography/[place] [address] Rodney Padilla MD [address] [place] [address] 05/01/2024 1:45 PM EDT Office [place] [phone] Juanpablo Hernandez MD [facility] [place] [address] 01/30/2025 1:30 PM EDT Appointment Hematology [place] [address] 01/30/2025 3:[address] Scan at [place] [phone] Arturo Cordero MD [facility] DR HEMATOLOGY [place] [address] 01/30/2025 4:15 PM EDT Office Visit Hematology [place] [address] Arturo Cordero MD [facility] DR HEMATOLOGY [place] [address] documented as of this encounter Visit Diagnoses Diagnosis Type 2 diabetes mellitus without long-term current use of insulin- Primary documented in this encounter Care Teams Foundation Digger Relationship Specialty Start Date End Date Rodney Padilla MD [address] [place] [address] PCP - General 07/18/22 documented as of this encounter
--- OUTSIDE RECORDS SUMMARY | 2024-03-04 21:19 | XMS_ITS | Encounter Summary ---
Author Organization [facility] [place] [address] Care Team Providers Care Cement Finisher Apprentice Name Role Phone Rodney Padilla MD Primary Care Provider [phone]- [phone] Encounter Details Date Type Department Care Team (Latest Contact Info) Description 02/20/2023 Travel Social History Tobacco Use Types Packs/Day [...] EDT TH Visit (TeleHealth) Sleep Center at [facility] [address] [place] [phone] Denisse Hardwick, [facility] 03/20/2024 2:00 PM EDT Clinical Support Family Medicine at [facility] [address] [place] [phone] Julia Low, [facility] 05/01/2024 11:20 AM EDT Appointment Mammography/[place] [address] Rodney Padilla MD [address] [facility] [place], [place] [id number] 05/01/2024 1:45 PM EDT Office [place] [address] Juanpablo Hernandez MD [facility] [place] [address] 01/30/2025 1:30 PM EDT Appointment Hematology [place] [address] 01/30/2025 3:[address] [place] [address] Arturo Cordero MD [facility] DR HEMATOLOGY [place] [address] 01/30/2025 4:15 PM EDT Office Visit Hematology [place] [address] Arturo Cordero MD [facility] DR HEMATOLOGY [place] [address] documented as of this encounter Visit Diagnoses Not on filedocumented in this encounter Care Teams Cement Finisher Apprentice Relationship Specialty Start Date End Date Rodney Padilla MD [address] [place] [address] PCP - General 07/18/22 documented as of this encounter
--- OUTSIDE RECORDS SUMMARY | 2024-03-04 21:19 | XMS_ITS | Encounter Summary ---
Author Organization [facility] Address [facility] [place] [address] Care Team Providers Care Card Grader Name Role Phone Rodney Padilla MD Primary Care Provider [phone]- [phone] Reason for Visit * Reason Comments Medication Refill Encounter Details Date Type Department Care Team (Late st Contact Info) Description 12/15/2022 Refill Family Medicine at [facility] [address] [place] [address] Luis E Narayan MD [facility] [place] [address] Mixed hyperlipidemia Social History Tobacco Use Types [...] Telephone Encounter - Coco Dyer MA - 12/15/2022 11:07 AM EDT Prescription Renewal Request Name: Alize Gramajo : 1960 Prescription(s) Requested: Requested Prescriptions Pending Prescriptions Disp Refills simvastatin (Zocor) 10 mg tablet [Pharmacy Med Name: SIMVASTATIN 10 MG TABLET] 90 tablet 3 Sig: TAKE ONE TABLET BY MOUTH EVERY DAY Date of Encounter last in This Dept (If need an appointment send to secretaries to schedule): 12/01/22 [place] Next Encounter in This Dept: 01/05/2023 Date of Last Refill (for each medication): 06/21/22 90 with 1 refill Medication category requirements (labs etc): N/A Status of request: Pended Allergies Allergen Reactions Codeine Phosphate Nausea And Vomiting Erythromycin Base Nausea Only Azithromycin Ibuprofen Stomach upset Lisinopril cough Nsaids (Non-Steroidal Anti-Inflammatory Drug) Nausea And Vomiting Coco Dyer MA 12/15/22 11:08 AM documented in this encounter Plan of Treatment Upcoming Encounters Date Type Department Care Team (Late st Contact Info) Description 03/20/2024 9:00 AM EDT TH Visit (TeleHealth) Sleep Center at [facility] [address] [place] [address] Denisse Hardwick, [facility] 03/20/2024 2:00 PM EDT Clinical Support Family Medicine at [facility] [address] [place] [address] Julia Low, [facility] 05/01/2024 11:20 AM EDT Appointment Mammography/[place] [address] Rodney Padilla MD [address] [facility] [place] [address] 05/01/2024 1:45 PM EDT Office [place] [address] Juanpablo Hernandez MD [facility] [place] [place] [address] 01/30/2025 1:30 PM EDT Appointment Hematology [place] [address] 01/30/2025 3:[address] [place] [address] Arturo Cordero MD [facility] [place] [address] 01/30/2025 4:15 PM EDT Office Visit Hematology [place] [address] Arturo Cordero MD [facility] [place] [address] documented as of this encounter Visit Diagnoses Diagnosis Mixed hyperlipidemia documented in this encounter Care Teams Card Grader Relationship Specialty Start Date End Date Rodney Padilla MD [address] [place] [address] PCP - General 07/18/22 documented as of this encounter
--- OUTSIDE RECORDS SUMMARY | 2024-03-04 21:19 | XMS_ITS | Encounter Summary ---
Author Organization [facility] Address [facility] [place] [address] Care Team Providers Care Mental Tester Name Role Phone Rodney Padilla MD Primary Care Provider [phone]- [phone] Reason for Visit * Reason Onset Date Comments Medication Refill 03/21/2023 Encounter Details Date Type Department Care Team (Late st Contact Info) Description 03/21/2023 Refill Family Medicine at [facility] [address] [place] [address] Tamera Khan, KATHIA [facility] DR [facility] [place] [address] Social History Tobacco Use Types Packs/Day Years [...] Telephone Encounter - Lucien Moore CMA - 03/22/2023 9:04 AM EDT Prescription Renewal Request Name: Alize Gramajo : 1960 Prescription(s) Requested: Requested Prescriptions Pending Prescriptions Disp Refills pantoprazole EC (Protonix) [address] tablet 90 tablet 3 Sig: Take 1 tablet by mouth daily. Date of Encounter last in This Dept (If need an appointment send to secretaries to schedule): 02/28/23pcp Next Encounter in This Dept: 05/01/2023 Date of Last Refill (for each medication): 06/16/22#90/3 Medication category requirements (labs etc): na Status of request: Pended Allergies Allergen Reactions Codeine Phosphate Nausea And Vomiting Erythromycin Base Nausea Only Azithromycin Ibuprofen Stomach upset Lisinopril cough Nsaids (Non-Steroidal Anti-Inflammatory Drug) Nausea And Vomiting Lucien Moore CMA 03/22/23 9:04 AM documented in this encounter Plan of Treatment Upcoming Encounters Date Type Department Care Team (Late st Contact Info) Description 03/20/2024 9:00 AM EDT TH Visit (TeleHealth) Sleep Center at [facility] [address] [place] [phone] Denisse Hardwick, [facility] 03/20/2024 2:00 PM EDT Clinical Support Family Medicine at [facility] [address] [place] [phone] Julia Low, [facility] 05/01/2024 11:20 AM EDT Appointment Mammography/[place] [address] Rodney Padilla MD [address] [facility] [place], [place] [phone] 05/01/2024 1:45 PM EDT Office Visit Ophthalmology at [place] [phone] Juanpablo Hernandez MD [facility] [address] 01/30/2025 1:30 PM EDT Appointment Hematology [place] [address] 01/30/2025 3:[address] [place] [address] Arturo Cordero MD [facility] [place] [address] 01/30/2025 4:15 PM EDT Office Visit Hematology [place] [address] Arturo Cordero MD [facility] [place] [address] documented as of this encounter Visit Diagnoses Not on filedocumented in this encounter Care Teams Mental Tester Relationship Specialty Start Date End Date Rodney Padilla MD [address] [place] [address] PCP - General 07/18/22 documented as of this encounter
--- OUTSIDE RECORDS SUMMARY | 2024-03-04 21:19 | XMS_ITS | Encounter Summary ---
Author Organization [facility] [place] [address] Care Team Providers Care Parking Cashier Name Role Phone Rodney Padilla MD Primary Care Provider [phone] Encounter Details Date Type Department Care Team (Late st Contact Info) Description 01/09/2023 Orders Only Hematology [place] [address] Arturo Cordero MD [facility] DR [place] [address] Malignant melanoma of conjunctiva, left; Lung nodule Social History Tobacco Use [...] EDT TH Visit (TeleHealth) Sleep Center at [facility] [address] [place] [address] Denisse Hardwick, [facility] 03/20/2024 2:00 PM EDT Clinical Support Family Medicine at [facility] [address] [place] [address] Julia Low [facility] 05/01/2024 11:20 AM EDT Appointment Mammography/[place] [address] Rodney Padilla MD [address] [place] [address] 05/01/2024 1:45 PM EDT Office [place] [address] Juanpablo Hernandez MD [facility] [place] [address] 01/30/2025 1:30 PM EDT Appointment Hematology and Oncology at [place] [phone] 01/30/2025 3:[address] Scan at [place] [phone] Arturo Cordero MD [facility] DR HEMATOLOGY [place] [address] 01/30/2025 4:15 PM EDT Office Visit Hematology [place] [address] Arturo Cordero MD [facility] DR [place] [address] documented as of this encounter Results * Lactate Dehydrogenase (08/03/2023 7:53 AM EST) [facility] Lactate Dehydrogenase 218 110 - 220 unit/L [facility] Blood 08/03/2023 7:53 AM EST 08/03/2023 9:46 AM EST Narrative Resulting Agency Comment Spec In Lab Arturo Cordero MD CHEMISTRY ORDERABLES [facility] [place] [address] * (ABNORMAL) Comprehensive metabolic panel (non-fasting) (08/03/2023 7:53 AM EST) [facility] Glucose 254(H) 65 - 199 mg/dL [facility] Comment:Diabetes: >=200 mg/d L plus symptoms Blood Urea Nitrogen 17 8 - 18 mg/dL [facility] Creatinine 0.82 0.70 - 1.20 mg/dL [facility] Sodium 140 135 - 145 mmol/L [facility] Potassium 4.9 3.5 - 5.0 mmol/L [facility] Comment: Please note: ??Patients with WBC >100,000 may have falsely elevated Potassium levels. ??For accurate Potassium quantification in these patients send serum separator tube (gold top) for subsequent determinations. ??Contact the Clinical Chemistry Laboratory if there are any questions. Chloride 103 98 - 107 mmol/L [facility] Carbon Dioxide 27 22 - 31 mmol/L [facility] Anion Gap 10 5 - 15 mmol/L [facility] Calcium 9.5 8.5 - 10.5 mg/dL [facility] Protein, Total 6.9 6.1 - 8.0 g/dL [facility] Albumin 4.3 3.2 - 5.2 g/dL [facility] Aspartate Aminotransferase 19 0 - 30 unit/L [facility] Alanine Aminotransferase 26 0 - 30 unit/L [facility] Alkaline Phosphatase 101 35 - 105 unit/L [facility] Bilirubin, Total 0.3 0.2 - 1.3 mg/dL [facility] Est Glomerular Filtration Rate 80 >=60 mL/min/1. 73 m?? [facility] Comment: This patient's estimated GFR [...] In Lab Arturo Cordero MD CHEMISTRY ORDERABLES [facility] [place] [address] documented in this encounter Visit Diagnoses Diagnosis Malignant melanoma of conjunctiva, left Lung nodule Solitary pulmonary nodule documented in this encounter Care Teams Parking Cashier Relationship Specialty Start Date End Date Rodney Padilla MD [address] [place] [address] PCP - General 07/18/22 documented as of this encounter
--- OUTSIDE RECORDS SUMMARY | 2024-03-04 21:19 | XMS_ITS | Encounter Summary ---
Author Organization [facility] [place] [address] Care Team Providers Care Parts Puller Name Role Phone Rodney Padilla MD Primary Care Provider Reason for Referral * Diagnostic Test (Routine) - Closed Specialty Diagnoses / Procedures Referred By Contac t Referred To Contact Radiology Diagnoses Malignant melanoma of conjunctiva, left Procedures CT Neck Soft Tissue w Contrast (Generic) Arturo Cordero MD [facility] [address] HEMATOLOGY [place] [address] [facility] [place] [address] Referral ID Status Reason Start Date Expiration Date V isits Requested Visits Authorized [id number] Closed Specialty Service Requested 12/29/2022 06/30/2024 1 1 * Diagnostic Test (Routine) - Closed Specialty Diagnoses / Procedures Referred By Contchrissy t Referred To Contact Radiology Diagnoses Malignant melanoma of conjunctiva, left Renal cell cancer, left Procedures CT Chest Abdomen Pelvis w Contrast (Generic) Arturo Cordero MD [facility] DR HEMATOLOGY [place] [address] [facility] [place] [address] Referral ID Status Reason Start Date Expiration Date V isits Requested Visits Authorized [id number] Closed Specialty Service Requested 12/29/2022 06/30/2024 1 1 * Diagnostic Test (Routine) - Closed Specialty Diagnoses / Procedures Referred By Contac t Referred To Contact Radiology Diagnoses Malignant melanoma of conjunctiva, left Procedures CT Neck Soft Tissue w Contrast (Generic) Arturo Cordero MD [facility] [address] HEMATOLOGY [place] [address] [facility] [place] [address] Referral ID Status Reason Start Date Expiration Date V isits Requested Visits Authorized [id number] Closed Specialty Service Requested 12/29/2022 06/30/2024 1 1 * Diagnostic Test (Routine) - Closed Specialty Diagnoses / Procedures Referred By Contac t Referred To Contact Radiology Diagnoses Malignant melanoma of conjunctiva, left Renal cell cancer, left Procedures CT Chest Abdomen Pelvis w Contrast (Generic) Arturo Cordero MD [facility] DR HEMATOLOGY [place] [address] [facility] [place] [address] Referral ID Status Reason Start Date Expiration Date V isits Requested Visits Authorized [id number] Closed Specialty Service Requested 12/29/2022 06/30/2024 1 1 Reason for Visit * Reason Comments Follow-up Encounter Details Date Type Department Care Team (Late st Contact Info) Description 12/29/2022 12:45 PM EDT Office Visit Hematology [place] [address] Arturo Cordero MD [facility] DR HEMATOLOGY [place] [address] Malignant melanoma of conjunctiva, left (Primary Dx); Renal cell cancer, left Social History Tobacco [...] Sign Reading Time Taken Comments Blood Pressure 134/95 12/29/2022 12:43 PM EDT Pulse 65 12/29/2022 12:43 PM EDT Temperature 36.2 ??C (97.2 ??F) 12/29/2022 1 2:43 PM EDT Respiratory Rate 20 12/29/2022 12:4 3 PM EDT Oxygen Saturation 94% 12/29/2022 12: 43 PM EDT Inhaled Oxygen Concentration - - Weight 110.2 kg (242 lb 15.2 oz) 2022 12:43 PM EDT Height 159.4 cm (5' 2.76) 12/29/2022 1 2:43 PM EDT Body Mass Index 43.37 12/29/2022 12:43 PM EDT documented in this encounter Progress Notes * Arturo Cordero MD - 12/29/2022 12:45 PM EDT Images from the original note were not included. [facility] NOTE REFERING PHYSICIAN: Dr. 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 Positive for PRAME immunostain. NF1 mutation, no BRAF, no CKIT CURRENT TX: Active Surveillance Mitomycin-C eyedrop round 3 out of 3 weeks every other week, scheduled to complete this Monday on 09/18/2020 status post excision on 05/14/2020 Plan for topical mitomycin-C Left partial nephrectomy on 06/28/[address] 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 Medina - 03/31/2020: saw her fashion consultant sales Dr. 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 - 05/14/2020: Underwent excision of the limbal lesion which was positive for melanoma Referred to melanoma clinic on 05/26/2020 to discuss treatment/follow-up options - 06/12/2020: CT Neck/Chest/Abd/Pelvis and MRI brain without evidence of distant metastases Mitomycin-C eyedrop total 3 weeks/every other week will complete on 09/18/2020 CT Neck on 12/17/2020 shows [...] 06/23/2022 shows no evidence of metastatic disease HPI: Alize Graamjo is a 62 y.o. female with past [...] abdominal discomfort. She has been seen by Dr. Hernandez. [...] Asthma uses inhalerswith good effect Atherosclerosis of [place] coronary artery of [place] heart with angina pectoris 10/09/2007 History of [...] 3.47) performed by Juanpablo Hernandez MD at [facility] PRO EXCIS CORNEA LESN Left 05/14/2020 EXCISION OF LESION, CORNEA, EXCEPT PTERYGIUM (WRVU 7.5) performed by Juanpablo Hernandez MD at [facility] PRO LAP, PARTIAL NEPHRECTOMY Left 06/28/2019 LAPAROSCOPY, PARTIAL NEPHRECTOMY, ROBOTIC ASSIST (WRVU 27.41) performed by Avila Medina MD at [facility] MAIN OR PRO PLACE AMNIOTIC MEMBRANE OCULAR SURFACE;SINGLE LAYER SUTURED Left 05/14/2020 PLACEMENT OF AMNIOTIC MEMBRANE ON THE OCULAR SURFACE,SINGLE LAYER,SUTURED (WRVU 2.5) performed by Juanpablo Hernandez MD at [facility] MEDS: Alcohol Swabs, LORazepam, Nebulizer Accessories, albuteroL, amLODIPine, amoxicillin-clavulanate, aspirin EC, blood sugar diagnostic strips, blood- glucose meter, budesonide-formoteroL, busPIRone, clopidogreL, clotrimazole, flash glucose scanning reader, flash glucose sensor, fluticasone propionate, i nsulin glargine, insulin needles (disposable), lamoTRIgine, lancets, loratadine, losartan, melatonin, metFORMIN XR, metoprolol succinate XL, miconazole, nitroGLYcerin, nystatin, pantoprazole EC, peppermint oiL, polyethylene glycoL, psyllium, simethicone, simvastatin, sucralfate, and traZODone ALLERGY: Allergies Allergen Reactions Codeine Phosphate Nausea [...] status: Every Day Packs/day: 1.00 Years: 40.00 Pack years: 40.00 Types: Cigarettes Smokeless tobacco: Never [...] with significant other 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 50+ pack/ yr hx No alcohol One daughter who is a positive support Social Determinants of Health Financial Resource Strain: Not on file Food Insecurity: Not on file Transportation Needs: Not on file Physical Activity: Not on file Housing Stability: Not on file Family history: - 2 brother - renal cell carcinoma - brother- pancreatic cancer - mother - uterine cancer in her 70s - maternal aunt - breast cancer - maternal aunt - renal cancer PHYSICAL EXAM: PS=1 General: not in acute distress. BP (!) 134/95 (Patient Position: Sitting) Pulse 65 Temp 36.2 ??C (97.2 ??F) (Temporal) Resp 20 Ht 159.4 cm (5' 2.76) Wt 110.2 kg (242 lb 15.2 oz) SpO2 94% BMI 43.37 kg/m?? Eyes: Not icteric, No obvious injection or discharge to bilateral eyes. No visible lesion. Oral: Not examined Neck: Supple. No lymphadenopathy. Lungs: Bilaterally clear to auscultation, No wheezing, No crackles Heart: Regular rate and rhythm. Abdomen: Soft, no tenderness, no mass, normal active bowel sounds. Extremities: No significant edema Skin: No rash Neuro: No focal weakness LABS: CBC unremarkable CMP unremarkable except glucose 259 LDH 175 IMAGING STUDIES: CT Chest Abdomen Pelvis 06/23/2022: 1. Fatty [...] PLAN: Left eye conjunctival melanoma s/p resection without evidence of distant metastases. History of renal cell cancer NF1 mutation, no BRAF, no CKIT Mitomycin-C eyedrop, completed in September 2020 Overall she denies any significant change in her daily activity. She has had persistent abdominal distention and asthma issue. She expressed her frustration about difficult weight control. I will arrange stand-alone CT of the neck and chest abdomen pelvis in 1 to 2 weeks. If this remains negative, I will bring him back in 1 year with restaging scan. Importance of dermatology follow-up was reviewed with her. The patient was instructed to call us with any new symptoms or concerns. Arturo Cordero MD documented in this encounter Plan of Treatment Upcoming Encounters Date Type Department Care Team (Late st Contact Info) Description 03/20/2024 9:00 AM EDT TH Visit (TeleHealth) Sleep Center at [facility] [address] [place] [phone] Denisse Hardwick, [facility] 03/20/2024 2:00 PM EDT Clinical Support Family Medicine at [facility] [address] [place] [phone] Julia Low, [facility] 05/01/2024 11:20 AM EDT Appointment Mammography/[place] [phone] Rodney Padilla MD [address] [place] [address] 05/01/2024 1:45 PM EDT Office [place] [phone] Juanpablo Hernandez MD [facility] [address] 01/30/2025 1:30 PM EDT Appointment Hematology [place] [address] 01/30/2025 3:[address] [place] [phone] Arturo Cordero MD [facility] HEMATOLOGY [place] [address] 01/30/2025 4:15 PM EDT Office Visit Hematology [place] [phone] Arturo Cordero MD [facility] DR HEMATOLOGY [place] [address] documented as of this encounter Results * [...] who have questions please contact the health personal care aide that requested your imaging first. ? Narrative [...] The orbits are not included within the [id number]-kg-ains. No masses along the visualized upper aerodigestive [...] The orbits are not included within the [id number]. No masses alongthe visualized upper aerodigestive tract. [...] patients who have questions please contactthe health personal care aide that requested your imaging first. Arturo Cordero [...] interpretation and agree with the findings, Zain Izaguirre MD at 08/03/2023 4:55 PM Thank you for letting us participate in the care of this patient. ??If you are a health care provider and have any questions regarding this report, please contact the number below. ??For patients who have questions please contact the health personal care aide that requested your imaging first. ? Narrative [...] patients who have questions please contactthe health personal care aide that requested your imaging first. Arturo Cordero [...] who have questions please contact the health personal care aide that requested your imaging first. ? Narrative [...] after the intravenous administration of 110 mL [id number]. COMPARISON: CT neck 06/23/2022 FINDINGS: No large [...] patients who have questions please contactthe health personal care aide that requested your imaging first. Arturo Cordero [...] who have questions please contact the health personal care aide that requested your imaging first. ? Narrative 01/06/2023 4:13 PM EDT EXAMINATION: CT CHEST ABDOMEN PELVIS W CONTRAST (GENERIC) CLINICAL HISTORY: Melanoma, stage >= IIB, monitor Left eye conjunctival melanoma treated in May 2020, last CT in 2022 TECHNIQUE: Helical CT of the chest, abdomen, [...] patients who have questions please contactthe health personal care aide that requested your imaging first. Arturo Cordero MD IMG CT ORDERABLES documented in this encounter Visit Diagnoses Diagnosis Malignant melanoma of conjunctiva, left- Primary Renal cell cancer, left Malignant melanoma of conjunctiva, left Renal cell cancer, left Malignant melanoma of conjunctiva, left Renal cell cancer, left documented in this encounter Care Teams Parts Puller Relationship Specialty Start Date End Date Rodney Padilla MD [address] [place] [address] PCP - General 1/9/23 documented as of this encounter
--- OUTSIDE RECORDS SUMMARY | 2024-03-04 21:19 | XMS_ITS | Encounter Summary ---
Author Organization [facility] Address [facility] [place] [address] Care Team Providers Care Angio Technologist Name Role Phone Rodney Padilla MD Primary Care Provider [phone]- [phone] Reason for Visit * Reason Comments Medication Refill Encounter Details Date Type Department Care Team (Late st Contact Info) Description 04/02/2023 Refill Family Medicine at [facility] [address] [place] [address] Luis E Narayan MD [facility] [address] [place] [address] Social History Tobacco Use Types Packs/Day Years [...] EDT TH Visit (TeleHealth) Sleep Center at [facility] [address] [place] [phone] Denisse Hardwick, [employer] [facility] 03/20/2024 2:00 PM EDT Clinical Support Family Medicine at [facility] [address] [place] [phone] Julia Low [facility] 05/01/2024 11:20 AM EDT Appointment Mammography/[place] [address] Rodney Padilla MD [address] [facility] [place], [place] [id number] 05/01/2024 1:45 PM EDT Office [place] [address] Juanpablo Hernandez MD [facility] [place] [address] 01/30/2025 1:30 PM EDT Appointment Hematology and Oncology at [place] [address] 01/30/2025 3:[address] Scan at [place] [address] Arturo Cordero MD [facility] [place] [address] 01/30/2025 4:15 PM EDT Office Visit Hematology and Oncology at [place] [phone] Arturo Cordero MD [facility] [address] [place] [address] documented as of this encounter Visit Diagnoses Not on filedocumented in this encounter Care Teams Angio Technologist Relationship Specialty Start Date End Date Rodney Padilla MD [address] [place] [place] [address] PCP - General 07/18/22 documented as of this encounter
--- OUTSIDE RECORDS SUMMARY | 2024-03-04 21:19 | XMS_ITS | Encounter Summary ---
Author Organization [facility] [place] [address] Care Team Providers Care County Attorney Name Role Phone Rodney Padilla MD Primary Care Provider [phone]- [phone] Reason for Visit * Reason Onset Date Comments Leg Swelling 04/14/2023 Encounter Details Date Type Department Care Team (Late st Contact Info) Description 04/14/2023 Nurse Triage Family Medicine at [facility] [address] [place] [address] Rani Menard, RN Leg Swelling Social History Tobacco Use Types Packs/Day Years [...] Telephone Encounter - Rani Menard RN - 04/14/2023 3:56 PM EDT Copied from [facility] #[id number]. Topic: Triage - Triage >> Apr 14, 2023 3:12 PM Angi King wrote: Symptom: Bilateral lower leg swelling, bursitis in hip bilaterally PCP: RODNEY PADILLA Additional Comments: Patient calling wanting to schedule an appointment next week with her new PCP for her edema. Agent unable to find any availability within 24 hours. Patient states that the edema is not new to her, but it has been getting worse than it usually is, especially towards the end of the day. Patient states that she needs to have her kidney function checked because of the edema and her history of diabetes. Patient also reports bursitis in both sides of her hip which orthopaedics believes may be caused by her knee. Patient states that she will be starting physical therapy for this. Called pt. Pt was verified using name and Reason for Call: Leg Swelling Brief Health History (Onset, Location, Duration, Characteristics, Aggravating Factors, Relieving Factors/Radiation,Timing, and Severity): Pt stated that she has chronic edema. She started to have increase leg swelling by the end of the day. Her ortho doctor thought that she should make an appointment with her PCP to have her kidney and heart checked. Pt is not in distress and denies shortness of breath. Pt schedule for Monday with PCP. Worsening Symptoms: Emphasized symptoms that require emergent/urgent care according to EPIC protocol utilized or other documented decision support tool. Patient able to teach back worsening symptoms and action to take. Patient/Caregiver demonstrates understanding via teach back: Yes Disposition: See Within 3 Days in Office Reason for Disposition MILD swelling of both ankles (i.e., pedal edema) AND new-onset or worsening Protocols used: Leg Swelling and Edema-A-OH documented in this encounter Plan of Treatment Upcoming Encounters Date Type Department Care Team (Late st Contact Info) Description 03/20/2024 9:00 AM EDT TH Visit (TeleHealth) Sleep Center at [facility] [address] [place] [phone] Denisse Hardwick, [facility] [facility] 03/20/2024 2:00 PM EDT Clinical Support Family Medicine [facility] [address] [place] [phone] Jluia Low, [facility] 05/01/2024 11:20 AM EDT Appointment Mammography/[place] [phone] Rodney Padilla MD [address] [facility] [place] [address] 05/01/2024 1:45 PM EDT Office [place] [address] Juanpablo Hernandez MD [facility] [place] [address] 01/30/2025 1:30 PM EDT Appointment Hematology [place] [address] 01/30/2025 3:[address] [place] [phone] Arturo Cordero MD [facility] [place] [address] 01/30/2025 4:15 PM EDT Office Visit Hematology [place] [address] Arturo Cordero MD [facility] [address] [place] [address] documented as of this encounter Visit Diagnoses Not on filedocumented in this encounter Care Teams County Attorney Relationship Specialty Start Date End Date Rodney Padilla MD [address] [place] [place] [address] PCP - General 07/18/22 documented as of this encounter
--- OUTSIDE RECORDS SUMMARY | 2024-03-04 21:19 | XMS_ITS | Encounter Summary ---
Author Organization [facility] [place] [address] Care Team Providers Care Global Account Manager Name Role Phone Rodney Padilla MD Primary Care Provider +1- [phone] Reason for Visit * Reason Comments Procedure Knee injection for R t knee Encounter Details Date Type Department Care Team (Late st Contact Info) Description 02/23/2023 3:00 PM EDT Procedure visit Family Medicine at [facility] [address] [place] [phone] Shyla Barbosa MD [address] [facility] [place] [address] Chronic pain of right knee; Type 2 diabetes mellitus without long-term current use of insulin; Type 2 diabetes mellitus with diabetic polyneuropathy, with long-term current use of insulin Social [...] place to sleep or slept in a chcf (including now)? No 06/14/2021 Sex and Gender Information Value Date Recorded Sex Assigned at Not on file Gender Identity Not on file Sexual Orientation Not on file documented as of this encounter Last Filed Vital Signs Vital Sign Reading Time Taken Comments Blood Pressure 140/88 02/23/2023 3:02 PM EDT Pulse 74 02/23/2023 3:02 PM EDT Temperature 36.4 ??C (97.5 ??F) 02/23/2023 3:02 PM ED T Respiratory Rate - - Oxygen Saturation 97% 02/23/2023 3:02 PM EDT Inhaled Oxygen Concentration - - Weight 108.4 kg (239 lb) 02/23/2023 3:02 PM EDT Height 159.4 cm (5' 2.76) 02/23/2023 3:02 PM ED T Body Mass Index 42.66 02/23/2023 3:02 PM EDT documented in this encounter Progress Notes * Shyla Barbosa MD - 02/23/2023 3:00 PM EDT Subjective: Patient ID: Alize Gramajo is a 62 y.o. female. HPI Chief Complaint Patient presents with Procedure Knee injection for Rt knee Last 3 Hemoglobin A1Cs A1C today 8.5 Lab Results Component Value Date HA1C 9.3 (A) 10/05/2022 HA1C 9.2 (H) 04/12/2022 HA1C 8.1 (A) 10/26/2021 1) right knee pain, worse when on feet. Pain with lying down and sitting. No hx of falls Has tried heating pack, helps mildly Sometime pain lower extremity edema. Pain feels like bone on bone, rubbing quality Baseline pain 7-04/18. Occ tylenol (Has hx of fatty liver tries to limit) Also uses Voltaren, but was told not to use because of diabetes Can't take nsaids on plavix and also partial nephrectomy so use with caution if at all. ? Sugars at home? - no recent readings. Has hx of gout, had recent flair in foot. Review of Systems Objective: BP 140/88 (BP Location (NBP): Left arm, Patient Position: Sitting, BP Cuff Sizes: Large Adult (32-43 cm)) Pulse 74 Temp 36.4 ??C (97.5 ??F) (Temporal) Ht 159.4 cm (5' 2.76) Wt 108.4 kg (239 lb) SpO2 97% BMI 42.66 kg/m?? Patient reported measures: Pain:7 Physical Health:[place]: 02/20/2023 12:04 PM PHQ-9 Score Only - All PHQ - 9 Score 5 (Mild Depression) PHQ - 9 Score (Patient) 5 (Mild Depression) Wt Readings from Last 3 Encounters: 02/23/23 108.4 kg (239 lb) 02/22/23 108.4 kg (239 lb) 12/29/22 110.2 kg (242 lb 15.2 oz) Physical Exam Right knee mild effusion, no redness. No rash. There is tenderness at medial and lateral joint line. After consent was obtained, using sterile technique, The knee joint was entered lateral approach, Steroid 20 mg (2ml) and 3ml plain Lidocaine was then injected and the needle withdrawn. The procedurewas well tolerated. The patient is asked to continue to rest the knee for a few more days before resuming regular activities. It may be more painful for the first 1-2 days. Watch for fever, or increased swelling or persistent pain in knee. Call or return to clinic prn if such symptoms occur or the knee fails to improve as anticipated. Assessment and Plan: 1. Chronic pain of right knee Injection today 3. Type 2 diabetes mellitus with diabetic polyneuropathy, with long-term current use of insulin Pt usually follows with pharmD for dm, but with reed magaña out on maternity leave pt needs MD/star follow up , rec next week. A1c today is improved to 8.5. Discussed with patient that sugars may rise for a few days after joint injection. Telemed visit early next week or to follow up on blood sugars (needs closer follow up with MD/STAR team while reed magaña is out) documented in this encounter Plan of Treatment Upcoming Encounters Date Type Department Care Team (Late st Contact Info) Description 03/20/2024 9:00 AM EDT TH Visit (TeleHealth) Sleep Center at [facility] [address] [place] [phone] Denisse Hardwick, [facility] 03/20/2024 2:00 PM EDT Clinical Support Family Medicine at [facility] [address] [place] [phone] Julia Magaña, [facility] 05/01/2024 11:20 AM EDT Appointment Mammography/[place] [phone] Rodney Padilla MD [address] [facility] [place] [address] 05/01/2024 1:45 PM EDT Office [place] [address] Juanpablo Hernandez MD [facility] [place] [address] 01/30/2025 1:30 PM EDT Appointment Hematology [place] [address] 01/30/2025 3:[address] [place] [address] Arturo Cordero MD [facility] DR HEMATOLOGY [place] [address] 01/30/2025 4:15 PM EDT Office Visit Hematology [place] [phone] Arturo Cordero MD [facility] DR HEMATOLOGY AND ONCOLOGY [place], [place] [phone] documented as of this encounter Procedures Procedure Name Priority Date/Time Associated Diagnosis Comments POCT GLYCATED HEMOGLOBIN, TOTAL (HA1C) Routine 02/23/2023 Type 2 diabetes mellitus without long-term current use of insulin documented in this encounter Results * (ABNORMAL) POCT glycated hemoglobin, total (HA1C) (02/23/2023) Hemoglobin A1C, POC 8.5(A) 4.3 - 5.6 % Urine specimen obtained by clean catch procedure (specimen) Shyla Barbosa MD POINT OF CARE TEST O RDERABLES documented in this encounter Visit Diagnoses Diagnosis Chronic pain of right knee Type 2 diabetes mellitus without long-term current use of insulin Type 2 diabetes mellitus with diabetic polyneuropathy, with long-term current use of insulin documented in this encounter Care Teams Global Account Manager Relationship Specialty Start Date End Date Rodney Padilla MD [address] [place] [address] PCP - General 07/18/22 documented as of this encounter
--- OUTSIDE RECORDS SUMMARY | 2024-03-04 21:19 | XMS_ITS | Encounter Summary ---
Author Organization [facility] Address [facility] [place] [address] Care Team Providers Care Cafeteria Clerk Name Role Phone Rodney Padilla MD Primary Care Provider [phone]- [phone] Reason for Visit * Reason Onset Date Comments Medication Refill 03/21/2023 Encounter Details Date Type Department Care Team (Late st Contact Info) Description 03/21/2023 Refill Family Medicine at [facility] [address] [place] [address] Luis E Narayan MD [facility] [address] [facility] [address] Essential hypertension Social History Tobacco Use Types [...] Telephone Encounter - Jade Kruse MA - 03/22/2023 9:40 AM EDT Prescription Renewal Request Name: Alize Gramajo : 1960 Prescription(s) Requested: Requested Prescriptions Pending Prescriptions Disp Refills clopidogreL (Plavix) 75 mg tablet 90 tablet 3 Sig: Take 1 tablet by mouth daily. loratadine (Claritin) 10 mg Tablet 90 tablet 3 Sig: Take 1 tablet by mouth daily. amLODIPine (Norvasc) 5 mg tablet 90 tablet 3 Sig: Take 1 tablet by mouth daily. Date of Encounter last in This Dept (If need an appointment send to secretaries to schedule): 02/28/2023 Randy Next Encounter in This Dept: 05/01/2023 Date of Last Refill (for each medication): 03/29/2022 90 w 3 refill for all 3 Medication category requirements (labs etc): Lab Results [...] Drug) Nausea And Vomiting Jade Kruse MA 03/22/23 10:05 AM documented in this encounter Plan of Treatment Upcoming Encounters Date Type Department Care Team (Late st Contact Info) Description 03/20/2024 9:00 AM EDT TH Visit (TeleHealth) Sleep Center [facility] [address] [place] [phone] Denisse Hardwick, [facility] 03/20/2024 2:00 PM EDT Clinical Support Family Medicine [facility] [address] [place] [address] Julia Low, [facility] 05/01/2024 11:20 AM EDT Appointment Mammography/[place] [address] Rodney Padilla MD [address] [place] [address] 05/01/2024 1:45 PM EDT Office [place] [address] Juanpablo Hernandez MD [facility] [place] [address] 01/30/2025 1:30 PM EDT Appointment Hematology [place] [address] 01/30/2025 3:[address] [place] [address] Arturo Cordero MD [facility] DR HEMATOLOGY [place] [address] 01/30/2025 4:15 PM EDT Office Visit Hematology [place] [address] Arturo Cordero MD [facility] DR HEMATOLOGY [place] [address] documented as of this encounter Visit Diagnoses Diagnosis Essential hypertension Unspecified essential hypertension documented in this encounter Care Teams Cafeteria Clerk Relationship Specialty Start Date End Date Rodney Padilla MD [address] [place] [address] PCP - General 07/18/22 documented as of this encounter
--- OUTSIDE RECORDS SUMMARY | 2024-03-04 21:19 | XMS_ITS | Encounter Summary ---
Author Organization [facility] [place] [address] Care Team Providers Care Supervisor Uranium Processing Name Role Phone Rodney Padilla MD Primary Care Provider +1- [phone] Reason for Visit * Reason Onset Date Comments Medication Refill 02/04/2023 Encounter Details Date Type Department Care Team (Late st Contact Info) Description 02/04/2023 Refill Family Medicine at [facility] [address] [place] [address] Bereket Latham PA [facility] [address] COPD Social History Tobacco Use Types Packs/Day Years [...] Telephone Encounter - Lucien Moore CMA - 02/06/2023 11:51 AM EDT Prescription Renewal Request Name: Alize Gramajo : 1960 Prescription(s) Requested: Requested Prescriptions Pending Prescriptions Disp Refills albuteroL (Proventil HFA) 90 mcg/actuation HFA Aerosol Inhaler 3 each 3 Sig: Inhale 2 puffs into the lungs every 4 hours as needed for wheeze. Use with spacer Date of Encounter last in This Dept (If need an appointment send to secretaries to schedule): 12/10/21 Next Encounter in This Dept: 05/01/2023 Date of Last Refill (for each medication): 07/20 Medication category requirements (labs etc): na Status of request: Pended Allergies Allergen Reactions Codeine Phosphate Nausea And Vomiting Erythromycin Base Nausea Only Azithromycin Ibuprofen Stomach upset Lisinopril cough Nsaids (Non-Steroidal Anti-Inflammatory Drug) Nausea And Vomiting Lucien Moore CMA 02/06/23 11:52 AM documented in this encounter Plan of Treatment Upcoming Encounters Date Type Department Care Team (Late st Contact Info) Description 03/20/2024 9:00 AM EDT TH Visit (TeleHealth) Sleep Center at [facility] [address] [place] [phone] Denisse Hardwick, [facility]IC[facility] ASSIST[facility] 03/20/2024 2:00 PM EDT Clinical Support Family Medicine at [facility] [address] [place] [address] Julia Low, [facility] 05/01/2024 11:20 AM EDT Appointment Mammography/[place] [address] Rodney Padilla MD [address] [place] [address] 05/01/2024 1:45 PM EDT Office Visit Ophthalmology at [place] [phone] Juanpablo Hernandez MD [facility] [place] [address] 01/30/2025 1:30 PM EDT Appointment Hematology [place] [address] 01/30/2025 3:[address] [place] [address] Arturo Cordero MD [facility] [place] [address] 01/30/2025 4:15 PM EDT Office Visit [place]ematology [place] [address] Arturo Cordero MD [facility] [place] [address] documented as of this encounter Visit Diagnoses Diagnosis COPD Simple chronic bronchitis documented in this encounter Care Teams Supervisor Uranium Processing Relationship Specialty Start Date End Date Rodney Padilla MD [address] [place] [address] PCP - General 07/18/22 documented as of this encounter
--- OUTSIDE RECORDS SUMMARY | 2024-03-04 21:20 | XMS_ITS | Encounter Summary ---
Author Organization [facility] Address [facility] [place] [address] Care Team Providers Care Warehouse Analyst Name Role Phone Rodney Padilla MD Primary Care Provider Reason for Visit * Reason Onset Date Comments Diabetes 11/09/2022 Encounter Details Date Type Department Care Team (Late st Contact Info) Description 11/09/2022 1:30 PM EDT Telephone Family Medicine at [facility] [address] [place] [address] Julia Low, [facility] Diabetes Social History Tobacco Use Types [...] as of this encounter Miscellaneous Notes * Addendum Note - Julia Low RPH - 11/09/2022 8:35 AM EDTAddended by: JULIA LOW on: 11/09/2022 08:35 AM Modules accepted: Orders * Telephone Encounter - Julia Low RPH - 11/09/2022 8:23 AM EDT Clinical Pharmacist Consultation; Julia Low RPH Visit Type: Telephone Call Subjective: Patient ID: Alize Gramajo is a 61 y.o. female. Phone call completed today for medication follow up. Caller: patient Reason for call: Tresiba 10 units daily Patient was seen recently for diabetes visit with PharmD and was prescribed Tresiba she started on Monday11/04/22. They have taken 5 doses of the medication. Reported side effects: yes shaky, tired, spacey, bad, and anxious. Recent glucose readings: Before Brkfast After Brkfast Before Lunch After Lunch Before Supper BED Overnight 153 194 257 142 123 163 30Oct 227 182 245 181 106 1-November 169 193 179 108 126 2-November 162 199 AM PHI PM BED O/N Average 188 193 204 194 147 118 163 Lowest 162 193 179 142 108 106 163 Highest 227 193 257 245 181 126 163 Daily Avg 173 eA1c 8.498423 Average BG Readings before insulin: 175 Assessment and Recommendations: Assessment/Plan: Patient is not tolerating Tresiba However does not have evidence of hypoglycemia or a significant lowering in BG average since before starting. Possibly pt's symptoms are somatic since this is a new med for her. Will offer pt 2 options: 1. Lower dose 50% 2. Switch to alternative basal insulin at lower dose Pt choose to lower dose of Tresiba and myDH message PharmD with how she feels during the day There are no diagnoses linked to this encounter. Diabetes Medication Regimen at conclusion of 11/09/22 encounter: ??? DECREASE Tresiba to 5 units daily ??? Metformin XR 500 mg 2 tabs BID Follow Up: (12/01/2022) in 3 weeks to review SMBG Will await pt's message to determine if further therapy adjustments should be made Patient verbalized agreement and understanding of plan with no further questions at this time. Julia Low RPH 11/09/22 Total time spent: 15 minutes documented in this encounter Plan of Treatment Upcoming Encounters Date Type Department Care Team (Late st Contact Info) Description 03/20/2024 9:00 AM EDT TH Visit (TeleHealth) Sleep Center at [facility] [address] [place] [phone] Denisse Hardwick [facility] 03/20/2024 2:00 PM EDT Clinical Support Family Medicine at [facility] [address] [place] [address] Julia Low RPH 05/01/2024 11:20 AM EDT Appointment Mammography/[place] [address] Rodney Padilla MD [address] [place] [address] 05/01/2024 1:45 PM EDT Office [place] [address] Juanpablo Hernandez MD [facility] [place] [address] 01/30/2025 1:30 PM EDT Appointment Hematology [place] [address] 01/30/2025 3:[address] [place] [address] Arturo Cordero MD [facility] [address] HEMATOLOGY [place] [address] 01/30/2025 4:15 PM EDT Office Visit Hematology [place] [address] Arturo Cordero MD [facility] [address] HEMATOLOGY [place] [address] documented as of this encounter Visit Diagnoses Diagnosis Type 2 diabetes mellitus without long-term current use of insulin documented in this encounter Care Teams Warehouse Analyst Relationship Specialty Start Date End Date Rodney Padilla MD [address] [place] [address] PCP - General 07/18/22 documented as of this encounter
--- OUTSIDE RECORDS SUMMARY | 2024-03-04 21:20 | XMS_ITS | Encounter Summary ---
Author [place] [address] Care Team Providers Care Wax Room Supervisor Name Role Phone Rodney Padilla MD Primary Care Provider +1- [phone] Reason for Visit * Diagnostic Test (Routine) - Closed Specialty Diagnoses / Procedures Referred By Gonzalez kumari Referred To Contact Radiology Diagnoses Dyspepsia Nausea without vomiting Procedures NM Gastric Emptying Scan Alejandra Pop, CADDY [address] [place] [address] [place] [address] Referral ID Status Reason Start Date Expiration Date V isits Requested Visits Authorized [id number] Closed Specialty Service Requested 06/17/2022 12/17/2023 1 1 Encounter Details Date Type Department Care Team (Latest Contact Info) Description 10/18/2022 10:22 AM EDT - 10/18/2022 11:59 PM EDT Hospital Encounter [place] [address] Alejandra Pop APRN [address] [place] [address] Discharge Disposition: Home Social History Tobacco Use [...] (E.C.) Take 81 mg by mouth daily. Alcohol Swabs Pads, MedicatedIndications: Type 2 diabetes mellitus with hyperglycemia, without long-term current use of insulin Apply 1 each topically daily. 100 each 3 11/07/2022 11/02/2023 Insulin Tresiba FlexTouch U-100 100 unit/mL (3 mL) Insulin PenIndications:type 2 diabetes mellitus Inject 10 Units subcutaneously daily. Dose adjusting based on BG. Take 10-50 units based on BG daily Indications: type 2 diabetes mellitus 15 mL 11 10/05/2022 11/09/2022 insulin needles, disposable, 32 gauge x 5/32 NeedleIndications:true betes mellitus Inject 1 each subcutaneously daily. Indications: diabetes 100 each 11 10/05/2022 11/02/2023 nitroGLYcerin (Nitrostat) 0.[address] 1 tablet under the tongue See Admin Instructions. 30 tablet 5 09/26/2022 09/19/2023 fluticasone propionate (Flonase) 50 mcg/actuation Mize, Suspension 1 spray by Each Nare route [...] times daily. 3 each 3 06/24/2022 08/29/2023 simvastatin (Zocor) 10 mg TabletIndications:Mix ed hyperlipidemia Take 1 tablet by mouth daily. 90 tablet 1 06/21/2022 12/16/2022 peppermint oiL 50 mg Capsule, Delayed Release(E.C.)Indicati [...] 1 each 12/10/2021 02/04/2023 FreeStyle Sanjana 2 [place] MiscIndications:diabe escobar mellitus 1 each by Other [...] EDT TH Visit (TeleHealth) Sleep Center at [facility] [address] [place] [address] Denisse Hardwick, [facility] 03/20/2024 2:00 PM EDT Clinical Support Family Medicine at [facility] [address] [place] [phone] Julia Low [facility] 05/01/2024 11:20 AM EDT Appointment Mammography/[place] [address] Rodney Padilla MD [address] [place] [place] [address] 05/01/2024 1:45 PM EDT Office [place] [address] Juanpablo Hernandez MD [facility] [place] [address] 01/30/2025 1:30 PM EDT Appointment Hematology [place] [address] 01/30/2025 3:[address] Scan at [place] [phone] Arturo Cordero MD [facility] [place] [address] 01/30/2025 4:15 PM EDT Office Visit Hematology [place] [address] Arturo Cordero MD [facility] [address] [place] [address] documented as of this encounter Procedures Procedure Name Priority Date/Time Associated Diagnosis Comments NM GASTRIC EMPTYING SCAN Routine 10/18/2022 1:52 PM EDT Dyspepsia Nausea without vomiting documented in this encounter Results * NM Gastric Emptying Scan (10/18/2022 1:52 PM EDT) Anatomical Region Laterality Modality Nuclear Medicine Impressions 10/18/2022 3:12 PM EDT Normal gastric emptying. Thank you for letting us participate in the care of this patient. ??If you are a health care provider and have any questions regarding this report, please contact the number below. ??For patients who have questions please contact the health plant care worker that requested your imaging first. ? Narrative 10/18/2022 3:12 PM EDT EXAMINATION: NM GASTRIC EMPTYING SCAN CLINICAL HISTORY: dyspepsia, nausea TECHNIQUE: A standard meal was labeled with 0.5 mCi of Technetium-99m sulfur colloid and ingested. Images of the stomach were obtained in the anterior and posterior projections immediately thereafter and 1, 2, and 3 hours later. COMPARISON: None FINDINGS: Activity fills the stomach on the initial images obtained immediately after ingesting the meal. Small bowel is visible at one hour. There is minimal activity present in the stomach at 3 hours. Quantitative analysis: 2 hours: 11 percent remains in the stomach (normal less than 60%) 3 hours: 8 percent remains in the stomach (normal less than 10% at four hours) Procedure Note Brett Chapman MD - 10/18/2022 EXAMINATION: NM GASTRIC EMPTYING SCAN CLINICAL HISTORY: dyspepsia, nausea TECHNIQUE: A standard meal was labeled with 0.5 mCi of Technetium-99msulfur colloid and ingested. Images of the stomach were obtained in the anteriorand posterior projections immediately thereafter and 1, 2, and 3 hourslater. COMPARISON: None FINDINGS: Activity fills the stomach on the initial images obtained immediatelyafter ingesting the meal. Small bowel is visible at one hour. There is minimal activity present in the stomach at 3 hours. Quantitative analysis: 2 hours: 11 percent remains in the stomach (normal less than 60%) 3 hours: 8 percent remains in the stomach (normal less than 10% at fourhours) IMPRESSION Normal gastric emptying. Thank you for letting us participate in the care of this patient. If youare a health care provider and have any questions regarding this report,please contact the number below. For patients who have questions please contactthe health plant care worker that requested your imaging first. Alejandra Pop CADDY IMG NM ORDERABLE S documented in this encounter Visit Diagnoses Not on filedocumented in this encounter Care Teams Wax Room Supervisor Relationship Specialty Start Date End Date Rodney Padilla MD [address] [place] [address] PCP - General 07/18/22 documented as of this encounter
--- OUTSIDE RECORDS SUMMARY | 2024-03-04 21:20 | XMS_ITS | Encounter Summary ---
Author Organization [facility] Address [facility] [place] [address] Care Team Providers Care Leaf Sorter Name Role Phone Luis E Narayan MD Primary Care Provider [phone] Reason for Visit * Reason Comments Follow-up Doesn't feel good, a lso just finished antibiotics for sinus infection, pt thinks there is some type of lung infection Encounter Details Date Type Department Care Team (Late st Contact Info) Description 07/07/2022 11:30 AM EST Office Visit Family Medicine at [facility] [address] [place] [phone] Tamera Khan, CONTENT MANAGEMENT CONSULTANT [facility] [address] [facility] [address] LLQ pain; Acute rhinosinusitis; Fatty liver Social History Tobacco Use Types Packs/Day Years [...] Sign Reading Time Taken Comments Blood Pressure 138/76 07/07/2022 11:24 AM EST Pulse 79 07/07/2022 11:24 AM EST Temperature 36.1 ??C (96.9 ??F) 07/07/2022 11:[address] Respiratory Rate 18 07/07/2022 11:24 AM EST Oxygen Saturation 100% 07/07/2022 11:24 AM EST Inhaled Oxygen Concentration - - Weight 109.8 kg (242 lb) 07/07/2022 11:24 AM EST Height 161.3 cm (5' 3.5) 07/07/2022 11:24 AM ES T Body Mass Index 42.2 07/07/2022 11:24 AM EST documented in this encounter Patient Instructions * Patient Instructions* Tamera Khan APRN - 07/07/2022 11:30 AM EST Sinus congestion supportive care recommendations: -You may use an intranasal decongestant such as oxymetolazone two times a day for NO MORE than 3 days. -Do not use for longer than 3 days with out consulting your PCP. Prolonged use can cause damage to the nasal tissue and can cause rebound congestion, and addiction of tissues to the nasal decongestant, which may cause you to be more congested. -After use of the decongestant spray, wait 5-10 minutes and use a sinus rinse (bottle type rise). Julio César med sinus rinse. -use intranasal saline spray as needed through the day If despite following the recommendations above you do not improve after 10 days, or you start to get better and then get worse again, you develop a fever >102 degrees F, or you have any other concerns about your condition, please call our office to schedule a follow up. Call- [phone] to schedule the gastric emptying scan Nutrition: How to Make Healthier Food Choices From: familydoctor.org/iwtfrtbxp-esb-ah-yklq-egwjtzrct-vnwl-choices Having a healthy diet has a lot of benefits. It can help you lose weight or maintain your desired weight. It also can lower your cholesterol and prevent certain health conditions. In general, a healthy diet keeps your body running on a daily basis. Learn how to make healthier food choices. Path to improved health The choices you make about what you eat and drink matter. They should add up to a balanced, nutritious diet. We all have different calorie needs based on our gender, age, and activity level. Health conditions can play a role too, including if you need to lose weight. Choose food from all five groups and follow the tips below. Grains - Choose products that list whole grains as the first ingredient. For example, whole grain breads or whole-wheat flour. Whole grains are low in fat and high in fiber. They also contain complex carbohydrates (carbs), which help you feel full longer and prevent overeating. - Avoid products that say ???enriched?? or contained with other types of grains or flours. They donot have the same nutrients. - Hot and cold cereals usually are low in fat. However, instant cereals with cream may contain high-fat oils or butterfat. Granola cereals also may have high-fat oils and extra sugars. Look for low-sugar options instead. - Try not to eat rich sweets, such as doughnuts, rolls, and muffins. These foods often contain calories made up of more than 50% fat. Home Hospice Aide options, such as maria victoria food cake, can satisfy your sweet tooth without adding fat to your diet. Instead of this: Try this: Croissants, rolls, biscuits, and white breads Whole grain breads, including wheat, rye, and pumpernickel Doughnuts, pastries, and scones Argentine muffins and small whole grain bagels Fried tortillas Soft tortillas (corn or whole wheat) Sugar cereals and regular granola Whole grain cereal, oatmeal, and low-fat granola Snack crackers Lower fat, lower sugar crackers, such as animal, tonia, rye, soda, saltine, and oyster Potato or corn chips and buttered popcorn Pretzels (unsalted) and popcorn (unbuttered) White pasta Whole-wheat pasta White rice Brown or wild rice Fried rice and rice or pasta mixes that contain high-fat sauces Rice or pasta (without egg yolk) that contain vegetable sauces All-purpose white flour Whole-wheat flour Fruits and Vegetables Fruits and vegetables naturally are low in fat. They provide flavor and variety to your diet. They also contain necessary fiber, vitamins, and minerals. Try not to add unneeded fats to vegetables and fruits. This means avoiding margarine, butter, mayonnaise, and sour cream. You can use yogurt, healthy oils, or herbs to season instead. Instead of this: Try this: Regular or fried vegetables served with cream, cheese, or butter sauces Raw, steamed, boiled, or baked vegetables tossed with a small amount of olive oil, salt, and pepper Fruits served with cream cheese or sugary sauces Fresh fruit with a small amount of nut (peanut, almond, or cashew) butter Fried potatoes, including comoran fries, hash browns, and potato chips Baked white or sweet potatoes Protein Beef, pork, veal, and jordan Select low-fat, lean cuts of meat. Lean beef and veal cuts have the words ???loin?? or ???round?? in their names. Lean pork cuts have the words ???loin?? or ???leg?? in their names. Trim off the outside fat before cooking it. Trim any inside, separable fat before eating it. Use herbs, spices, and low- sodium marinades to season meat. Baking, broiling, grilling, and roasting are the healthiest ways to prepare these meats. Lean cuts can be jennings-broiled or stir-fried. Use either a nonstick jennings or cooking spray instead of butter or margarine. Avoid serving your protein with high-fat sauces and gravies. Poultry Chicken breasts are a good choice because they are low fat and high in protein. Only eat duck and goose once in a while, because they are high in fat. Remove skin and visible fat before cooking. Baking, broiling, grilling, and roasting are the healthiest ways to prepare poultry. Skinlesspoultry can be jennings-broiled or stir- fried. Use a nonstick jennings or cooking spray instead of butter or margarine. Fish Most seafood is high in healthy polyunsaturated fat. [place]-3 fatty acids also are found in some fish, such as salmon and cold-water trout. Try to eat seafood twice a week. Fresh fish should have a clear color, a clean smell, and firm, springy flesh. If good-quality fresh fish isn???t available, buyfrozen fish. To prepare fish, you should poach, steam, bake, broil, or grill it. Non-meat proteins Non-meat options include dry beans, peas, and lentils. They offer protein and fiber without the cholesterol and fat of meats. These are staple foods for people who are vegetarian or vegan. You can swap beans for meat in recipes, like lasagna or chili. TVP, or textured vegetable protein, also is available. It is found in vegetarian hot dogs, hamburgers, and chicken nuggets. They are low-fat, cholesterol-free substitutes to meat. Instead of this: Try this: Breaded fish sticks and cakes, fish canned in oil, or seafood prepared with butter or served in high-fat sauce Fish (fresh, frozen, or canned in water), grilled fish sticks and cakes, or low-fat shellfish, like shrimp Prime and marbled cuts Select-grade lean beef, such as round, sirloin, and loin cuts Pork spare ribs and dno Lean pork, such as tenderloin and loin chop, and turkey don Regular ground beef Lean or extra-lean ground beef, ground chicken, or ground turkey Lunch meats, such as pepperoni, salami, bologna, and liverwurst Lean lunch meats, such as turkey, chicken, and ham Regular hot dogs and sausage Fat-free hot dogs and turkey dogs Dairy - Choose skim or non-dairy milk, like soy, rice, or almond milk. Try low-fat or part-skim cheeses in recipes. Skim ricotta can replace cream cheese on a bagel or in a vegetable dip. Use 1% cottage cheese for salads and cooking. String cheese is a low-fat, high-calcium snack option. - Nonfat or Serbian yogurt can replace sour cream in many recipes. Try mixing them with fruit for dessert. - Skim sherbet and soft-serve frozen yogurt is lower in fat than ice cream. Instead of this: Try this: Whole or 2% milk Skim (nonfat), 1% , or non-dairy milk, such as soy, rice, almond, or cashew milk Cream or evaporated milk Evaporated skim milk Regular buttermilk Low-fat buttermilk Yogurt made with whole milk Low-fat, nonfat, or Serbian yogurt Regular cheese, including Argentine, blue, brie, cheddar, karen, and parmesan Low-fat cheese with less than 3 grams of fat per serving, such as natural cheese or nondairy soy cheese Regular cottage cheese Low-fat, nonfat, and dry-curd cottage cheese with less than 2% fat Regular cream cheese Low-fat cream cheese with less than 3 grams of fat per ounce, or skim ricotta Ice cream Sorbet, sherbet, or frozen yogurt with less than 3 grams of fat per 1/2 cup serving Fats, oils, and sweets Too many high-fat foods add excess calories to your diet. This can lead to weight gain and obesity or increase your risk for certain issues. Heart disease, diabetes, some cancers, and osteoarthritis have all been linked to diets high in fat. If you consume high amounts of saturated and trans fats, you are more likely to develop high cholesterol and coronary heart disease. It is important that you stay hydrated for your health. However, sugar-sweetened drinks contain lots of sugar and calories. This includes fruit juices, soda, sports and energy drinks, sweetened or flavored milk, and sweet tea. Substitute water and other zero-calorie drinks. Water is great for your overall health and helps balance your weight. Specific water requirements differ based on your size and activity level. However, everyone should be drinking at least 64 ounces of water a day. Instead of this: Try this: Cookies Fig bars, gingersnaps, and molasses cookies Shortening, butter, and margarine [place], canola, and soybean oils Regular mayonnaise Nonfat or light mayonnaise Regular salad dressing Nonfat or light salad dressing Butter or fat to grease pans Nonstick cooking spray Things to consider Being healthy is more than a diet -- it???s a lifestyle. Combine healthy food choices with regular exercise and smart habits. Adults should get at least 150 minutes of moderate exercise each week. Children and teens should get at least 60 minutes of exercise every day. If you smoke,you should quit. You also should limit your alcohol intake. Women should have no more than one drink per day. Men should have no more than two drinks per day. Talk to your doctor if you need help quitting alcohol or smoking. When you commit to a healthy lifestyle, you can reduce your risk of certain conditions. These include obesity, diabetes, heart disease, and cancer. If you???re worried, try making small changes to your diet over time. Talk with your family doctor or a dietitian if you have questions. Questions to ask your doctor: How many servings should I eat from each food group? If I???m on a strict diet, such as vegetarian or vegan, how can I make healthy food choices? If I???m thin, can I simply eat whatever I want? Resources [employer], Nutrition: Tips for Improving Your Health U.S. Department of Agriculture: ChooseMyPlate documented in this encounter Progress Notes * Tamera Khan APRN - 07/07/2022 11:30 AM EST Subjective: Patient ID: Alize Gramajo is a 61 y.o. female, presenting for follow up for chronic abdominal pain, bloating, and other concerns Chief Complaint Patient presents with ??? Follow-up Doesn't feel good, also just finished antibiotics for sinus infection, pt thinks there is some typeof lung infection Follow up Discussed with GI; patient still needs to schedule testing prior to follow up with them Thinking that the chronic bloating and abdominal pain is related to her poorly controlled diabetes Confirmed it is ok to use metamucil in pts with a history of diverticulitis Alize is asking for follow up on her CT done by [facility] onc - questions about fatty liver dx on scan Recently was seen in the ED for sinus infection, finished course of abx Still having a non productive cough, sinus pressure and mild fever Denies chills, chest pain, shortness of breath Review of Systems As above I reviewed problem list and med list in [facility] Objective: BP 138/76 Pulse 79 Temp 36.1 ??C (96.9 ??F) Resp 18 Ht 161.3 cm (5' 3.5) Wt 109.8 kg (242 lb) SpO2 100% BMI 42.20 kg/m?? Physical Exam Constitutional: Appearance: Normal appearance. HENT: Right Ear: Tympanic membrane normal. Left Ear: Tympanic membrane normal. Nose: Congestion and rhinorrhea present. Right Sinus: Frontal sinus tenderness present. Left Sinus: Frontal sinus tenderness present. Mouth/Throat: Pharynx: No oropharyngeal exudate. Eyes: Extraocular Movements: Extraocular movements intact. Pupils: Pupils are equal, round, and reactive to light. Neck: Vascular: No carotid bruit. Cardiovascular: Rate and Rhythm: Normal rate and regular rhythm. Pulses: Normal pulses. Heart sounds: Normal heart sounds. Pulmonary: Effort: Pulmonary effort is normal. Breath sounds: Normal breath sounds. Abdominal: Palpations: Abdomen is soft. Lymphadenopathy: Cervical: No cervical adenopathy. Skin: General: Skin is warm. Capillary Refill: Capillary refill takes less than 2 seconds. Findings: No rash. Neurological: General: No focal deficit present. Mental Status: She is alert and oriented to person, place, and time. Psychiatric: Mood and Affect: Mood normal. Behavior: Behavior normal. Assessment and Plan: 1. LLQ pain Advised follow up with GI after testing is complete - psyllium; Take 1 packet by mouth daily. Dispense: 30 each; Refill: 11 2. Acute rhinosinusitis Presumed treatment failure with amox for sinusitis - doxycycline (ADOXA) 100 mg Tablet; Take 1 tablet by mouth 2 times daily for 7 days. Dispense: 14 tablet; Refill: 0 3. Fatty liver Discussed CT findings, dont appear dramatically changed from her previous scan reports LFTs done recently were WNL Discussed diet, exercise and managing her diabetes would be the best way forward for treating this Visit was limited due to time; was not able to address chronic GI concerns in depth due to other concerns Follow up with GI after testing complete, with [facility] for DM management, and prn with new or worseningconcerns. Time-based visit: Yes: 45 minutes visit spent reviewing chart (labs, meds, imaging, consult notes),interviewing and/or examining patient, developing and discussing treatment plan, educating patient,and documenting this encounter. Tamera Khan APRN documented in this encounter Plan of Treatment Upcoming Encounters Date Type Department Care Team (Late st Contact Info) Description 03/20/2024 9:00 AM EDT TH Visit (TeleHealth) Sleep Center at [facility] [address] [place] [phone] Denisse Hardwick, BR[facility] ADVIS[employer] [facility] 03/20/2024 2:00 PM EDT Clinical Support Family Medicine at [facility] [address] [place] [phone] Julia Low [facility] 05/01/2024 11:20 AM EDT Appointment Mammography/[place] [address] Rodney Padilla MD [address] [facility] [place], [place] [id number] 05/01/2024 1:45 PM EDT Office [place] [address] Juanpablo Hernandez MD [facility] [place] [address] 01/30/2025 1:30 PM EDT Appointment Hematology and Oncology at [place] [address] 01/30/2025 3:[address] Scan at [address] Arturo Cordero MD [facility] [address] [place] [address] 01/30/2025 4:15 PM EDT Office Visit Hematology [place] [address] Arturo Cordero MD [facility] [address] [place] [address] documented as of this encounter Visit Diagnoses Diagnosis LLQ pain Abdominal pain, left lower quadrant Acute rhinosinusitis Acute sinusitis, unspecified Fatty liver Other chronic nonalcoholic liver disease documented in this encounter Care Teams Leaf Sorter Relationship Specialty Start Date End Date Luis E Narayan MD [facility] [address] [place] [address] PCP - General Family Medicine 01/20/22 07/17/22 documented as of this encounter
--- OUTSIDE RECORDS SUMMARY | 2024-03-04 21:20 | XMS_ITS | Encounter Summary ---
[place] [address] Care Team Providers Care Authorization Manager Name Role Phone Rodney Padilla MD Primary Care Provider Reason for Referral * Diagnostic Test (Routine) - Closed Specialty Diagnoses / Procedures Referred By Contac t Referred To Contact Radiology Diagnoses Dyspepsia Nausea without vomiting Procedures NM Gastric Emptying Scan Alejandra Pop [employer] PROGRAMMER [address] [place] [address] [place] [address] Referral ID Status Reason Start Date Expiration Date V isits Requested Visits Authorized [id number] Closed Specialty Service Requested 06/17/2022 12/17/2023 1 1 Reason for Visit * Diagnostic Test (Routine) - Closed Specialty Diagnoses / Procedures Referred By Contac t Referred To Contact Radiology Diagnoses Dyspepsia Nausea without vomiting Procedures NM Gastric Emptying Scan Alejandra Pop APRN [address] [place] [address] [place] [address] Referral ID Status Reason Start Date Expiration Date V isits Requested Visits Authorized [id number] Closed Specialty Service Requested 06/17/2022 12/17/2023 1 1 Encounter Details Date Type Department Care Team (Latest Contact Info) Description 10/18/2022 10:21 AM EDT Hospital Encounter [facility] [place] [address] Alejandra Pop, PLC PROGRAMMER [address] [place] [address] Dyspepsia; Nausea without vomiting Discharge Disposition: Home Social History Tobacco Use [...] 09/26/2022 09/19/2023 fluticasone propionate (Flonase) 50 mcg/actuation [place], Suspension 1 spray by Each Nare route [...] 1 each 12/10/2021 02/04/2023 FreeStyle Sanjana 2 [place] MiscIndications:diabe escobar mellitus 1 each by Other [...] (TeleHealth) Sleep Center at [facility] [address] [place] [phone] Denisse Hardwick, [facility] 03/20/2024 2:00 PM EDT Clinical Support Family Medicine at [facility] [address] [place] [address] Julia Low, [facility] 05/01/2024 11:20 AM EDT Appointment Mammography/[place] [address] Rodney Padilla MD [address] [facility] [place] [address] 05/01/2024 1:45 PM EDT Office [place] [phone] Juanpablo Hernandez MD [facility] [place] [address] 01/30/2025 1:30 PM EDT Appointment Hematology [place] [address] 01/30/2025 3:[address] [place] [address] Arturo Cordero MD [facility] DR HEMAT[place] [address] 01/30/2025 4:15 PM EDT Office Visit Hematology [place] [address] Arturo Cordero MD [facility] DR HEMAT[place] [address] documented as of this encounter Procedures Procedure [...] who have questions please contact the health director of critical care that requested your imaging first. ? Narrative [...] patients who have questions please contactthe health director of critical care that requested your imaging first. Alejandra Pop PLC PROGRAMMER IMG NM ORDERABLE S documented in this encounter Visit Diagnoses Diagnosis Dyspepsia Dyspepsia and other specified disorders of function of stomach Nausea without vomiting documented in this encounter Administered Medications Inactive Administered Medications - up to 3 most recent administrations Medication Order MAR Action Action Date Dose Rate Site technetium (Tc-99m) sulfur colloid injection 0-18 mCi 0-18 mCi, Oral, ONCE PRN, 1 dose, Starting on Mon10/18/22 at 1032, Until Mon10/18/22 at 1032, Per Protocol, Radiology Contrast, Routine Given 10/18/2022 10:32 AM EDT 0.5 mCi documented in this encounter Care Teams Authorization Manager Relationship Specialty Start Date End Date Rodney Padilla MD [address] [place] [address] PCP - General 07/18/22 documented as of this encounter
--- OUTSIDE RECORDS SUMMARY | 2024-03-04 21:20 | XMS_ITS | Encounter Summary ---
Author Organization [facility] [place] [address] Care Team Providers Care Child Care Attendant Name Role Phone Rodney Padilla MD Primary Care Provider Encounter Details Date Type Department Care Team (Latest Contact Info) Description 11/30/2022 2:20 PM EDT - 11/30/2022 11:59 PM EDT Hospital Encounter Mammography[place] [address] Rodney Padilla MD [address] [place] [address] Screening mammogram for breast cancer Discharge Disposition: Home Social History Tobacco Use [...] (E.C.) Take 81 mg by mouth daily. Mack Solamaraar U-100 Insulin 100 unit/mL (3 mL) penIndications:type [...] needles, disposable, 32 gauge x 5/32 NeedleIndications:true roly mellitus Inject 1 each subcutaneously daily. Indications: diabetes 100 each 11 10/05/2022 11/02/2023 nitroGLYcerin (Nitrostat) 0.[address] 1 tablet under the tongue See Admin Instructions. 30 tablet 5 09/26/2022 09/19/2023 fluticasone propionate (Flonase) 50 mcg/actuation [place], Suspension 1 spray by Each Nare route [...] 1 each 12/10/2021 02/04/2023 FreeStyle Sanjana 2 [place] MiscIndications:diabe escobar mellitus 1 each by Other [...] (TeleHealth) Sleep Center at [facility] [place] [address] Denisse Hardwick [facility] 03/20/2024 2:00 PM EDT Clinical Support Family Medicine at [facility] [address] [place] [address] Julia Low [facility] 05/01/2024 11:20 AM EDT Appointment Mammography/[place] [phone] Rodney Padilla MD [address] [place] [address] 05/01/2024 1:45 PM EDT Office [place] [address] Juanpablo Hernandez MD [facility] [place] [address] 01/30/2025 1:30 PM EDT Appointment Hematology [place] [address] 01/30/2025 3:[address] [place] [address] Arturo Cordero MD [facility] [place] [address] 01/30/2025 4:15 PM EDT Office Visit Hematology [place] [address] Arturo Cordero MD [facility] [place] [address] documented as of this encounter Procedures Procedure Name Priority Date/Time Associated Diagnosis Comments MAMMO SCREENING CAD AND JOSE GUADALUPE BILATERAL Routine 11/30/2022 2:59 PM EDT Screening mammogram for breast cancer documented in this encounter Results * Mammo Screening Cad and Jose Guadalupe [...] Rodney Padilla MD IMG MAMMO ORDERABLE S documented in this encounter Visit Diagnoses Diagnosis Screening mammogram for breast cancer documented in this encounter Care Teams Child Care Attendant Relationship Specialty Start Date End Date Rodney Padilla MD [address] [place] [address] PCP - General 07/18/22 documented as of this encounter
--- OUTSIDE RECORDS SUMMARY | 2024-03-04 21:20 | XMS_ITS | Encounter Summary ---
Author Organization Formerly [facility] Address [facility] [place] [address] Care Team Providers Care Vegetable Cutter Name Role Phone Rodney Padilla MD Primary Care Provider Reason for Visit * Reason Onset Date Comments Medication Refill 09/25/2022 Encounter Details Date Type Department Care Team (Late st Contact Info) Description 09/25/2022 Refill Family Medicine at [facility] [address] [place] [address] Luis E Narayan MD [facility] DR LILI W[place] [address] Social History Tobacco Use Types Packs/Day Years [...] encounter Miscellaneous Notes * [facility]/26/2022 11:40 AM EDT Prescription Renewal Request Name: Alize Gramajo : 1960 Prescription(s) Requested: Requested Prescriptions Pending Prescriptions Disp Refills ??? nitroGLYcerin (Nitrostat) 0.4 mg sublingual tablet 30 tablet 5 Sig: Place 1 tablet under the tongue See Admin Instructions. Date of Encounter last in This Dept (If need an appointment send to secretaries to schedule): 07/07/22 Next Encounter in This Dept: Visit date not found Date of Last Refill (for each medication): 07/05/21 Medication category requirements (labs etc): Meets Protocol ( Medication and Refill Per Protocol: Internal Medicine and Primary Care Clinics ) : yes Status of request: Pended Allergies Allergen Reactions ??? Codeine Phosphate Nausea And Vomiting ??? Erythromycin Base Nausea Only ??? Azithromycin ??? Ibuprofen Stomach upset ??? Lisinopril cough ??? Nsaids (Non-Steroidal Anti-Inflammatory Drug) Nausea And Vomiting SONY Taveras 09/26/22 11:40 AM documented in this encounter Plan of Treatment Upcoming Encounters Date Type Department Care Team (Late st Contact Info) Description 03/20/2024 9:00 AM EDT TH Visit (TeleHealth) Sleep Center at [facility] [address] [place] [address] Denisse Hardwick, [facility] 03/20/2024 2:00 PM EDT Clinical Support Family Medicine at [facility] [address] [place] [address] Julia Low, [facility] 05/01/2024 11:20 AM EDT Appointment Mammography/[place] [phone] Rodney Padilla MD [address] [place] [address] 05/01/2024 1:45 PM EDT Office [place] [phone] Juanpablo Hernandez MD [facility] [place] [address] 01/30/2025 1:30 PM EDT Appointment Hematology [place] [address] 01/30/2025 3:[address] [place] [address] Arturo Cordero MD [facility] DR HEMATOLOGY [place] [address] 01/30/2025 4:15 PM EDT Office Visit Hematology [place] [address] Arturo Cordero MD [facility] DR HEMATOLOGY [place] [address] documented as of this encounter Visit Diagnoses Not on filedocumented in this encounter Care Teams Vegetable Cutter Relationship Specialty Start Date End Date Rodney Padilla MD [address] [place] [address] PCP - General 07/18/22 documented as of this encounter
--- OUTSIDE RECORDS SUMMARY | 2024-03-04 21:20 | XMS_ITS | Encounter Summary ---
Author Organization Formerly [facility], [facility] [place] [address] Care Team Providers Care Public Address Announcer Name Role Phone Rodney Padilla MD Primary Care Provider +1- [phone] Reason for Visit * Reason Onset Date Comments Medication Problem 11/08/2022 Tresiba Encounter Details Date Type Department Care Team (Late Contact Info) Description 11/08/2022 Telephone Family Medicine at [facility] [address] [place] [phone] Rodney Padilla MD [address] [facility] [place] [address] Medication Problem (Tresiba /) Social History Tobacco Use Types Packs/Day Years [...] encounter Miscellaneous Notes * Telephone Encounter - Katie Arndt RN - 11/08/2022 1:54 PM EDTSummary: URGENT CALL Reason for Call: Medication Problem (Tresiba /) Brief Health History (Onset, Location, Duration, Characteristics, Aggravating Factors, Relieving Factors/Radiation,Timing, and Severity): Recently started Tresiba flex pen on Monday Reports vision is different - hard to focus blurry Fatigue having to go to sleep Feeling shaky and dizzy Increased Anxiety Hx of BPPV reports when it first started sometimes lasted 5 hrs after injection Started on injections on Monday Testing sugars 4-5 times a day Monday evening -153 Monday 0815 -194 1240 -257 3:30 - 142 4pm started feeling shakey 8pm - 123 1215am- 163 Monday 7:15 - 227 12:30 - 182 3:45 - 245 4:45 - 181 - feeling shakey 8:30 - 106 Monday 7:30 - 169 9:45 - 193 - feeling tired and spacy Went back to bed 12:30 - 179 5:15 - 108- feeling shakey 9:11 - 126- feeling shakey and dizzy and anxious Tues 6:45am -162 1:30 199 (hasn't had lunch) Feeling really bad and increased anxiety Patient states not sure if this is normal for starting this medication while body gets used to it. Patient seen by Saida Devante 11/03 Will check with her and PCP to see if this is expected for starting this medication documented in this encounter Plan of Treatment Upcoming Encounters Date Type Department Care Team (Late st Contact Info) Description 03/20/2024 9:00 AM EDT TH Visit (TeleHealth) Sleep Center at [facility] [address] [place] [phone] Denisse Hardwick, [facility] 03/20/2024 2:00 PM EDT Clinical Support Family Medicine at [facility] [address] [place] [phone] Julia Low, [facility] 05/01/2024 11:20 AM EDT Appointment Mammography/[place] [phone] Rodney Padilla MD [address] [facility] [place] [address] 05/01/2024 1:45 PM EDT Office [place] [address] Juanpablo Hernandez MD [facility] [place] [address] 01/30/2025 1:30 PM EDT Appointment Hematology [place] [address] 01/30/2025 3:[address] [place] [address] Arturo Cordero MD [facility] [place] [address] 01/30/2025 4:15 PM EDT Office Visit Hematology [place] [address] Arturo Cordero MD [facility] DR [place] [address] documented as of this encounter Visit Diagnoses Not on filedocumented in this encounter Care Teams Public Address Announcer Relationship Specialty Start Date End Date Rodney Padilla MD [address] [place] [address] PCP - General 07/18/22 documented as of this encounter
--- OUTSIDE RECORDS SUMMARY | 2024-03-04 21:20 | XMS_ITS | Encounter Summary ---
Author Organization [facility] [place] [address] Care Team Providers Care Computer Technical Support Specialist Name Role Phone Rodney Padilla MD Primary Care Provider [phone]- [phone] Reason for Visit * Reason Onset Date Comments Medication Refill 11/07/2022 Encounter Details Date Type Department Care Team (Late st Contact Info) Description 11/07/2022 Refill Family Medicine at [facility] [address] [place] [phone] Rodney Padilla MD [address] [facility] [place] [address] Type 2 diabetes mellitus without long-term current [...] TH Visit (TeleHealth) Sleep Center at [facility] [address] [place] [address] Denisse Hardwick, [facility] 03/20/2024 2:00 PM EDT Clinical Support Family Medicine at [facility] [address] [place] [phone] Julia Low [facility] 05/01/2024 11:20 AM EDT Appointment Mammography/[place] [address] Rodney Padilla MD [address] [place] [address] 05/01/2024 1:45 PM EDT Office [place] [address] Juanpablo Hernandez MD [facility] [place] [place] [address] 01/30/2025 1:30 PM EDT Appointment Hematology and Oncology at [place] [address] 01/30/2025 3:[address] Scan at [place] [address] Arturo Cordero MD [facility] DR HEMATOLOGY [place] [address] 01/30/2025 4:15 PM EDT Office Visit Hematology and Oncology at [place] [phone] Arturo Cordero MD [facility] [place] [address] documented as of this encounter Visit Diagnoses Diagnosis Type 2 diabetes mellitus without long-term current use of insulin documented in this encounter Care Teams Computer Technical Support Specialist Relationship Specialty Start Date End Date Rodney Padilla MD [address] [place] [address] PCP - General 07/18/22 documented as of this encounter
--- OUTSIDE RECORDS SUMMARY | 2024-03-04 21:20 | XMS_ITS | Encounter Summary ---
Author Organization [facility] Address [facility] [place] [address] Care Team Providers Care Director Of Distance Learning Name Role Phone Rodney Padilla MD Primary Care Provider Reason for Visit * Reason Comments Diabetes Encounter Details Date Type Department Care Team (Late st Contact Info) Description 10/05/2022 3:30 PM EDT Clinical Support Family Medicine at [facility] [address] [place] [address] Julia Low, [facility] Type 2 [...] this encounter Progress Notes * Julia Low [facility] - 10/05/2022 3:30 PM EDT Clinical Pharmacist Consultation; Julia Low RPH Visit Type: Clinic followup - reconnected from 11/16/21 Diabetes Mellitus (DM) Medication Management Subjective Subjective: Patient ID: Alize Gramajo is a 61 y.o. female She is here to re-establish care for their type II diabetes. Signed DM or Metabolic Syndrome collaborative practice agreement (CPA)? yes Length of DM [] New dx Year of diagnosis: unk earliest reports 2019 Diabetic complications: PMH notable for any of the following conditions: Yes [x] RI/Stroke/CAD [] Retinopathy [] CHF [x] Neuropathy [] [...] Metformin XR 500 mg 2 tabs BID Prior diabetes therapy trials: ??? Never started Rybelsus or Ozempic d/t fear of stomach SE/FARZAD ??? glimepiride caused hypoglycemia in the afternoon Takes gas x and sucralfate for her stomach Would like to avoid meds that upset her stomach Home Glucose Monitoring are performed sporadically. 3 x weekly. Uses Freestyle testing supplies Has Freestyle sanjana but has never worn and fears being unable to understand the results so elected not to try BG this morning was 259 Prior Averages: 08/26/21 09/09/21 09/24/21 11/14/21 Daily Avg 157 168 131 138 eA1c [id number] 8.46 7.20 7.44 Acute complications of diabetes: Have you had [...] Outpatient Medications Medication Sig Dispense Refill ??? nitroGLYcerin (Nitrostat) 0.[address] 1 tablet under the tongue See Admin Instructions. 30 tablet 5 ??? fluticasone propionate (Flonase) 50 mcg/actuation [place], Suspension 1 spray by Each Nare route [...] ??? Nebulizer Accessories Misc 1 each by [facility].(Non-Drug; Combo Route) route every 4 hours as [...] 1 each 11 ??? FreeStyle Sanjana 2 [place] Misc 1 each by Other route daily. Indications: diabetes mellitus 1 each 0 ??? FreeStyle Sanjana 2 Sensor Kit 1 each by Other route every 14 days. Indications: diabetes mellitus 2 kit 0 ??? Alcohol Swabs Pads, Medicated Apply 1 each topically daily. 100 each 3 ??? polyethylene glycoL (Miralax) 17 gram Powder [...] Results Component Value Date HA1C 9.2 (H) 04/12/2022 HA1C 8.1 (A) 10/26/2021 HA1C 8.2 (H) 07/16/2021 Immunization history: Immunization status: missing Shingrix Current Immunizations Name Date INFLUENZA 06/07/2022 , 05/31/2021 , 05/06/2020 , 04/09/2019 , 05/08/2015 , 05/10/2007 Pfizer Covid-19 Bivalent Booster (Gordon Cap) 30mcg (12yrs+) 06/07/2022 Pneumo (PCV-13) 04/09/2019 Pneumo (PPSV-23) 05/10/2007 [...] elevated a1c for 3 years is basal insulin. ??? Of note unable to review home glucose in detail. Would benefit from reviewing BG log and still encourage pt to use CGM that she has which can help her assess the impacts of diet and lifestyle on BGs ??? She is not meeting personal activity goal. ADA recommendation of increasing exercising to 150 min/week as tolerated was reviewed ? ? She is not working on diet. ADA recommendation to limiting CHO to 45-75g per meal and <15g per snack was reviewed Blood Pressure BP Readings from Last 3 [...] changes: Diabetes Medication Regimen at conclusion of 10/05/22 encounter: ??? Metformin ??? START Tresiba 10 units daily Alize was seen today for diabetes. Diagnoses and all orders for this visit: Type 2 diabetes mellitus without long-term current use of insulin - POCT glycated hemoglobin, total (HA1C) - Insulin Tresiba FlexTouch U-100 100 unit/mL (3 mL) Insulin Pen; Inject 10 Units subcutaneously daily. Dose adjusting based on BG. Take 10-50 units based on BG daily Indications: type 2 diabetes mellitus - insulin needles, disposable, 32 gauge x 5/32 Needle; Inject 1 each subcutaneously daily. Indications: diabetes Education Provided: interpretation of lab results, blood sugar goals, complications of diabetes mellitus, self-monitoring of blood glucose skills, use of insulin pen, insulin adjustments and self-injection of insulin home glucose monitoring emphasized, all medications, side effects and compliance discussed carefully, use and side effects of insulin is taught, glycohemoglobin and other lab monitoring discussed and termination clerk diabetic complications discussed. Efforts to improve adherence to therapy plan (if necessary) will be directed at: ??? Overdue to repeat UAlb/Cr and FLP ??? Requested SMBG once daily in the morning (FBG) Follow up in 1 month to review insulin use and SMBG Pt verbalized agreement and understanding of plan with no further questions at this time. Pt understands IF NO CPA ON FILE no changes to current drug regimen were made at the appointment and that RPhis providing recommendations for provider review and follow up. Julia Low RPH 10/05/22 Total time spent: 60 minutes documented in this encounter Plan of Treatment Upcoming Encounters Date Type Department Care Team (Late st Contact Info) Description 03/20/2024 9:00 AM EDT TH Visit (TeleHealth) Sleep Center [facility] [address] [place] [phone] Denisse Hardwick [facility] 03/20/2024 2:00 PM EDT Clinical Support [facility] [address] [place] [address] Julia Low [facility] 05/01/2024 11:20 AM EDT Appointment Mammography/[place] [address] Rodney Padilla MD [address] [place] [address] 05/01/2024 1:45 PM EDT Office [place] [address] Juanpablo Hernandez MD [facility] [place] [address] 01/30/2025 1:30 PM EDT Appointment Hematology [place] [address] 01/30/2025 3:[address] [place] [address] Arturo Cordero MD [facility] [place] [address] 01/30/2025 4:15 PM EDT Office Visit Hematology [place] [address] Arturo Cordero MD [facility] DR [place] [address] documented as of this encounter Procedures Procedure Name Priority Date/Time Associated Diagnosis Comments POCT GLYCATED HEMOGLOBIN, TOTAL (HA1C) Routine 10/05/2022 Type 2 diabetes mellitus without long-term current use of insulin documented in this encounter Results * (ABNORMAL) POCT glycated hemoglobin, total (HA1C) (10/05/2022) Hemoglobin A1C, POC 9.3(A) 4.3 - 5.6 % 10/05/2022 Rodney Padilla MD POINT OF CARE TEST ORDERABLES documented in this encounter Visit Diagnoses Diagnosis Type 2 diabetes mellitus without long-term current use of insulin- Primary documented in this encounter Care Teams Director Of Distance Learning Relationship Specialty Start Date End Date Rodney Padilla MD [address] [place] [address] PCP - General 07/18/22 documented as of this encounter
--- OUTSIDE RECORDS SUMMARY | 2024-03-04 21:20 | XMS_ITS | Encounter Summary ---
Author Organization [facility] Address [facility] [place] [address] Care Team Providers Care Tread Booker Name Role Phone Rodney Padilla MD Primary Care Provider +1- [phone] Encounter Details Date Type Department Care Team (Latest Contact Info) Description 10/05/2022 Travel Social History Tobacco Use Types Packs/Day [...] at [facility] [address] [place] [address] Denisse Hardwick, [facility] 03/20/2024 2:00 PM EDT Clinical Support Family Medicine at [facility] [address] [place] [address] Julia Low, [facility] 05/01/2024 11:20 AM EDT Appointment Mammography/[place] [address] Rodney Padilla MD [address] [facility] [place], [place] [address] 05/01/2024 1:45 PM EDT Office [place] [address] Juanpablo Hernandez MD [facility] [place] [address] 01/30/2025 1:30 PM EDT Appointment Hematology [place] [address] 01/30/2025 3:[address] [place] [address] Arturo Cordero MD [facility] DR HEMATOLOGY [place] [address] 01/30/2025 4:15 PM EDT Office Visit [place]ology [place] [address] Arturo Cordero MD [facility] DR HEMATOLOGY [place] [address] documented as of this encounter Visit Diagnoses Not on filedocumented in this encounter Care Teams Tread Booker Relationship Specialty Start Date End Date Rodney Padilla MD [address] [place] [address] PCP - General 07/18/22 documented as of this encounter
--- OUTSIDE RECORDS SUMMARY | 2024-03-04 21:20 | XMS_ITS | Encounter Summary ---
Author Organization [facility] Address [facility] [address] Care Team Providers Care Cap Lining Machine Operator Name Role Phone Rodney Padilla MD Primary Care Provider +1- [phone] Encounter Details Date Type Department Care Team (Latest Contact Info) Description 10/17/2022 Travel Social History Tobacco Use Types Packs/Day [...] [facility] [address] [place] [address] Denisse Hardwick, [facility] 03/20/2024 2:00 PM EDT Clinical Support Family Medicine at [facility] [address] [place] [address] Julia Low, [facility] 05/01/2024 11:20 AM EDT Appointment Mammography/[place] [address] Rodney Padilla MD [address] [facility] [place], [place] [address] 05/01/2024 1:45 PM EDT Office [place] [address] Juanpablo Hernandez MD [facility] [place] [address] 01/30/2025 1:30 PM EDT Appointment Hematology [place] [address] 01/30/2025 3:[address] [place] [address] Arturo Cordero MD [facility] [place] [address] 01/30/2025 4:15 PM EDT Office Visit Hematology [place] [address] Arturo Cordero MD [facility] [place] [address] documented as of this encounter Visit Diagnoses Not on filedocumented in this encounter Care Teams Cap Lining Machine Operator Relationship Specialty Start Date End Date Rondey Padilla MD [address] [place] [address] PCP - General 07/18/22 documented as of this encounter
--- OUTSIDE RECORDS SUMMARY | 2024-03-04 21:20 | XMS_ITS | Encounter Summary ---
Author Organization [facility] [place] [address] Care Team Providers Care Mortgage Processor Name Role Phone Rodney Padilla MD Primary Care Provider +1- [phone] Reason for Visit * Reason Comments Eye Problem Diabetic Eye Exam Encounter Details Date Type Department Care Team (Late st Contact Info) Description 10/05/2022 12:45 PM EDT Office [place] [address] Juanpablo Hernandez MD [facility] [place] [address] Malignant melanoma of conjunctiva, left; Type 2 [...] * Patient Instructions* Juanpablo Hernandez MD - 10/05/2022 12:45 PM EDT Medications: Use eye medications [...] Progress Notes * Juanpablo Hernandez MD - 10/05/2022 12:45 PM EDT Encounter Diagnoses Name Primary? Malignant melanoma of conjunctiva, left ??? Type 2 diabetes mellitus without long-term current use of insulin Alize Gramajo is a 61 y.o. with the following ophthalmic problems: Melanoma [...] -No signs of recurrence. Follow for now -Discuss sunscreen, glasses, hat and skin protection in the sun. - Continue follow ups with Dr. Arriola - Repeat photos obtained for future reference NIDDM with A1C of 9.2: - DFE next visit, no evidence of NPDR/PDR 10/05/22 Cataract: Good BCVA, follow, MR given Current smoker but denies orthopnea, Hx of clear cell renal cell carcinoma Plan: - Follow up with dermatology and heme/onc as planned - Follow up 4-5 months or as needed - Findings and concerns discussed with Alize and she expressed understanding. Upon Return EPF. documented in this encounter Plan of Treatment Upcoming Encounters Date Type Department Care Team (Late st Contact Info) Description 03/20/2024 9:00 AM EDT TH Visit (TeleHealth) Sleep Center at [facility] [address] [place] [phone] Denisse Hardwick, [facility] 03/20/2024 2:00 PM EDT Clinical Support Family Medicine at [facility] [address] [place] [address] Julia Low, [facility] 05/01/2024 11:20 AM EDT Appointment Mammography/[place] [address] Rodney Padilla MD [address] [place] [address] 05/01/2024 1:45 PM EDT Office Visit Ophthalmology at [place] [phone] Juanpablo Hernandez MD [facility] [place] [address] 01/30/2025 1:30 PM EDT Appointment Hematology [place] [address] 01/30/2025 3:[address] Scan at [place] [phone] Arturo Cordero MD [facility] [address] [place] [address] 01/30/2025 4:15 PM EDT Office Visit Hematology and Oncology at [place] [phone] Arturo Cordero MD [facility] [place] [address] documented as of this encounter Procedures Procedure Name Priority Date/Time Associated Diagnosis Comments PHOTO SLITLAMP - OU - BOTH EYES Routine 10/05/2022 3:58 PM EDT Malignant melanoma of conjunctiva, left documented in this encounter Results * Photo Slitlamp - OU - Both Eyes (10/05/2022 3:58 PM EDT) Anatomical Region Laterality Modality Other Narrative 10/05/2022 3:58 PM EDT OD: quiet eye with nasal and temp ping OS: temp conj scarring, pin point fu temp conj Impression: For future comparison Juanpablo Hernandez MD [facility] ORDERABLES documented in this encounter Visit Diagnoses Diagnosis Malignant melanoma of conjunctiva, left Type 2 diabetes mellitus without long-term current use of insulin documented in this encounter Care Teams Mortgage Processor Relationship Specialty Start Date End Date Rodney Padilla MD [address] [place] [address] PCP - General 07/18/22 documented as of this encounter
--- OUTSIDE RECORDS SUMMARY | 2024-03-04 21:20 | XMS_ITS | Encounter Summary ---
Author Organization [facility] Address [facility] [place] [address] Care Team Providers Care Barrow Worker Helper Name Role Phone Rodney Padilla MD Primary Care Provider [phone] Encounter Details Date Type Department Care Team (Late st Contact Info) Description 11/30/2022 4:20 PM EDT Office Visit Dermatology at [facility] [address] [place] [address] Alonso Young MD [facility] [address] [place] [address] Seborrheic keratoses; Multiple nevi; Lentigines; Aranda angioma; History of malignant melanoma of eye; Seborrheic keratoses, inflamed Social History Tobacco Use Types Packs/Day Years [...] as of this encounter Progress Notes * Alonso Young MD - 11/30/2022 4:20 PM EDT Images from the original note were not included. DEPARTMENT OF DERMATOLOGY Medical Dermatology Clinic Provider: Alonso Young MD Patient's preferred name Alize Preferred contact [...] Illness: Alize Gramajo is a 62 y.o. Patient returns to clinic today for a full skin exam. -Patient does not have any concerns today. Last visit at Dermatology: 02/14/2022 Last visit with this provider: 02/14/2022 Medications: Reviewed in eD-H Allergies: Reviewed in eD-H Skin Examination: Full skin examination: Patient asked to undress to their comfort level. Verbalized that the provider's preference is that patient remove all clothing and that the provider will not examine areas patient elects to keep covered. Examination of the scalp, hair, head, face, ears, neck, chest, axillae, abdomen, back, buttocks, and upper and lower extremities was normal with the exception of the findings below. Genitalia not examined. Assessment/Plan #. Inflamed Seborrheic Keratoses - Inflamed, stuck on, waxy papules on the back x4. - Discussed benign nature of lesion(s) and provided reassurance. - Due to irritation present on today's exam and history of symptoms, discussed removal with cryotherapy. - Patient elects to proceed with cryotherapy today. Procedure: Destruction of lesion(s) with cryotherapy (LN2). Location(s): As noted above Number: 4 Discussed procedure and expectations including risks and benefits. Verbal consent obtained. Treatedwith LN2. There were no complications; Patient tolerated the procedure well. Post-procedure expectations and wound care were reviewed. #. Seborrheic Keratoses - Stuck on, waxy papules on the trunk and extremities. - Discussed benign nature of lesions and provided reassurance. No treatment necessary at this time. #. Benign Nevi - Scattered medium brown, evenly pigmented macules and papules on the trunk and extremities with reassuring pigment pattern on dermoscopy. - Discussed benign nature of lesions and provided reassurance. Will continue to monitor. #. Lentigines - Scattered light-brown, evenly pigmented, [...] negative for BAP1 mutation per patient. Other: ??? N/A RTC: 1 year for a full skin exam. []Note routed to racing secretary [x]Recall placed in scheduling system []Appointment scheduled at checkout Scribe attestation: SONY Lal has performed the documentation for this encounter in the presence of and acting as a scribe for Alonso Young MD. I performed the above scribed service and agree with the accuracy of the documentation in this encounter. Reviewed and signed by: Alonso Young MD Dermatology [facility] Patient seen and evaluated with staff hydrodynamics professor: Ren Mitchell MD Dermatology [facility] * Ren Mitchell MD - 11/30/2022 4:20 PM EDT I directly supervised Dr. Young during this office visit. Dr. Young presented the history and physical exam to me. I, then, saw and examined this patient with Dr. Young . We reviewed the history and pertinent details and I confirmed the physical findings. I agree with the details of the history andphysical exam as documented in Dr. Young's note. REN MITCHELL MD Staff Physician documented in this encounter Plan of Treatment Upcoming Encounters Date Type Department Care Team (Late st Contact Info) Description 03/20/2024 9:00 AM EDT TH Visit (TeleHealth) Sleep Center at [facility] [address] [place] [address] Denisse Hardwick, MECHANICAL APPLICATIONS ENGINEER [facility] 03/20/2024 2:00 PM EDT Clinical Support Family Medicine at [facility] [address] [place] [phone] Julia Low, [facility] 05/01/2024 11:20 AM EDT Appointment Mammography/[place] [phone] Rodney Padilla MD [address] [place] [address] 05/01/2024 1:45 PM EDT Office [place] [phone] Juanpablo Hernandez MD [facility] [place] [address] 01/30/2025 1:30 PM EDT Appointment Hematology [place] [address] 01/30/2025 3:[address] [place] [address] Arturo Cordero MD [facility] [address] [place] [address] 01/30/2025 4:15 PM EDT Office Visit Hematology [place] [address] Arturo Cordero MD [facility] [address] [place] [address] documented as of this encounter Visit Diagnoses Diagnosis Seborrheic keratoses Multiple nevi Benign neoplasm of skin, site unspecified Lentigines Other dyschromia Aranda angioma Nevus, non-neoplastic History of malignant melanoma of eye Family history of other specified malignant neoplasm Seborrheic keratoses, inflamed documented in this encounter Care Teams Barrow Worker Helper Relationship Specialty Start Date End Date Rodney Padilla MD [address] [place] [address] PCP - General 07/18/22 documented as of this encounter
--- OUTSIDE RECORDS SUMMARY | 2024-03-04 21:20 | XMS_ITS | Encounter Summary ---
Author Organization [facility] [place] [address] Care Team Providers Care Watershed Manager Name Role Phone Rodney Padilla MD Primary Care Provider Encounter Details Date Type Department Care Team (Late st Contact Info) Description 08/25/2022 Telephone Family Medicine at [address] [place] [address] Julia Gooden Social History Tobacco Use Types Packs/Day Years [...] Miscellaneous Notes * Telephone Encounter - Julia Gooden - 08/25/2022 12:55 PM EST Copied from [facility] #[id number]. Topic: Forms/Letters - Health/Immunization Forms >> Aug 25, 2022 11:53 AM Paula Tyson wrote: Health / Immunization Form Request PCP: RODNEY PADILLA Type of Form Needed: Current medication list Date of Last Physical: 07/07/22 How Would You Like to Receive This: [facility] called and stated patient isthere now and they need an updated medication list Patient Informed, completion of this request can take 5-7 business days. documented in this encounter Plan of Treatment Upcoming Encounters Date Type Department Care Team (Late st Contact Info) Description 03/20/2024 9:00 AM EDT TH Visit (TeleHealth) Sleep Center at [facility] [address] [place] [address] Denisse Hardwick, QUALITY IMPROVEMENT ENGINEER [facility] 03/20/2024 2:00 PM EDT Clinical Support Family Medicine at [facility] [address] [place] [address] Julia Low [facility] 05/01/2024 11:20 AM EDT Appointment Mammography/DXA at [place] [phone] Rodney Padilla MD [address] [place] [address] 05/01/2024 1:45 PM EDT Office Visit Ophthalmology at [place] [address] Juanpablo Hernandez MD [facility] [place] [address] 01/30/2025 1:30 PM EDT Appointment Hematology and Oncology at [address] 01/30/2025 3:[address] Scan at [place] [address] Arturo Cordero MD [facility] [place] [address] 01/30/2025 4:15 PM EDT Office Visit Hematology and Oncology at [place] [phone] Arturo Cordero MD [facility] [place] [address] documented as of this encounter Visit Diagnoses Not on filedocumented in this encounter Care Teams Watershed Manager Relationship Specialty Start Date End Date Rodney Padilla MD [address] [place] [address] PCP - General 07/18/22 documented as of this encounter
--- OUTSIDE RECORDS SUMMARY | 2024-03-04 21:20 | XMS_ITS | Encounter Summary ---
Author Organization [facility] [place] [address] Care Team Providers Care Administration Internship Name Role Phone Rodney Padilla MD Primary Care Provider [phone] Encounter Details Date Type Department Care Team (Late st Contact Info) Description 07/18/2022 Telephone Family Medicine at [facility] [address] [place] [phone] Rodney Padilla MD [address] [place] [address] Social History Tobacco Use Types Packs/Day Years [...] encounter Miscellaneous Notes * Telephone Encounter - Elsie Rosenthal RMA - 07/20/2022 4:47 PM EST See message below from pt. Pt last seen on: 07/07/22 with Bill. Last RX: 06/16/22 #420 mL w/5RF Please advise if there is an alterative that can be prescribed or we can send a request to our PA dept to see if a PA can be done? Thanks * Telephone Encounter - Sera Vidal - 07/18/2022 3:27 PM EST Pharmacy or caller: Patient Medication: sucralfate (Carafate) 100 mg/mL Suspension Message: Patient states that she went to pharmacy to get this [facility] and that Rodney Padilla MD needed to call provider services and would not provide patient with a phone number. Patient is out of the medication today. Did you contact your pharmacy?: yes documented in this encounter Plan of Treatment Upcoming Encounters Date Type Department Care Team (Late st Contact Info) Description 03/20/2024 9:00 AM EDT TH Visit (TeleHealth) Sleep Center at [facility] [address] [place] [phone] Denisse Hardwick, [facility] 03/20/2024 2:00 PM EDT Clinical Support Family Medicine at [facility] [address] [place] [address] Julia Low, [facility] 05/01/2024 11:20 AM EDT Appointment Mammography[place] [address] Rodney Padilla MD [address] [place] [address] 05/01/2024 1:45 PM EDT Office [place] [address] Juanpablo Hernandez MD [facility] [place] [place] [address] 01/30/2025 1:30 PM EDT Appointment Hematology [place] [address] 01/30/2025 3:[address] [place] [address] Arturo Cordero MD [facility] [place] [address] 01/30/2025 4:15 PM EDT Office Visit Hematology [place] [address] Arturo Cordero MD [facility] DR [place] [address] documented as of this encounter Visit Diagnoses Not on filedocumented in this encounter Care Teams Administration Internship Relationship Specialty Start Date End Date Rodney Padilla MD [address] [place] [address] PCP - General 07/18/22 documented as of this encounter
--- OUTSIDE RECORDS SUMMARY | 2024-03-04 21:20 | XMS_ITS | Encounter Summary ---
[place] [address] Care Team Providers Care Parts Counterman Name Role Phone Rodney Padilla MD Primary Care Provider [phone] Reason for Visit * Diagnostic Test (Routine) - Closed Specialty Diagnoses / Procedures Referred By Gonzalez kumari Referred To Contact Radiology Diagnoses Dyspepsia Nausea without vomiting Procedures NM Gastric Emptying Scan Alejandra Pop, HOME SCHOOL COORDINATOR [address] [place] [address] [place] [address] Referral ID Status Reason Start Date Expiration Date V isits Requested Visits Authorized [id number] Closed Specialty Service Requested 06/17/2022 12/17/2023 1 1 Encounter Details Date Type Department Care Team (Latest Contact Info) Description 10/18/2022 10:22 AM EDT - 10/18/2022 11:59 PM EDT Hospital Encounter [place] [address] Alejandra Pop APRN [address] [place] [address] Discharge Disposition: Home Social History [...] 09/26/2022 09/19/2023 fluticasone propionate (Flonase) 50 mcg/actuation [place], Suspension 1 spray by Each Nare route [...] 1 each 12/10/2021 02/04/2023 FreeStyle Sanjana 2 [place] MiscIndications:diabe escobar mellitus 1 each by Other [...] [facility] [address] [place] [address] Denisse Hardwick, FOURDRINIER OPERATOR [facility] 03/20/2024 2:00 PM EDT Clinical Support Family Medicine at [facility] [address] [place] [address] Julia Low [facility] 05/01/2024 11:20 AM EDT Appointment Mammography/[place] [address] Rodney Padilla MD [address] [place] [address] 05/01/2024 1:45 PM EDT Office [place] [address] [facility] [place] [address] 01/30/2025 1:30 PM EDT Appointment Hematology [place] [address] 01/30/2025 3:[address] Scan at [place] [phone] [facility] DR [place] [address] 01/30/2025 4:15 PM EDT Office Visit [place]ematology [place] [address] [facility] DR [place] [address] documented as of this encounter Procedures Procedure [...] who have questions please contact the health care director that requested your imaging first. ? Narrative [...] patients who have questions please contactthe health care director that requested your imaging first. Alejandra Pop HOME SCHOOL COORDINATOR IMG [place] ORDERABLE S documented in this encounter Visit Diagnoses Not on filedocumented in this encounter Care Teams Parts Counterman Relationship Specialty Start Date End Date Rodney Padilla MD [address] [place] [address] PCP - General 07/18/22 documented as of this encounter
--- OUTSIDE RECORDS SUMMARY | 2024-03-04 21:20 | XMS_ITS | Encounter Summary ---
Author Organization [facility] Address [facility] [address] Care Team Providers Care Cook Candy Name Role Phone Rodney Padilla MD Primary Care Provider [phone] Reason for Visit * Reason Comments Diabetes Encounter Details Date Type Department Care Team (Late st Contact Info) Description 11/03/2022 12:45 PM EDT TH Visit (TeleHealth) Family Medicine at [facility] [address] [place] [address] Julia Low, [facility] Type 2 diabetes mellitus without [...] this encounter Progress Notes * Julia Low [facility] - 11/03/2022 12:45 PM EDT Clinical Pharmacist Consultation; Julia [...] any of the following conditions: Yes [x] AL/Stroke/CAD [] Retinopathy [] CHF [x] Neuropathy [] [...] XR 500 mg 2 tabs BID ??? Has not started Tresiba but has at home; reports he does not know how to use Prior diabetes therapy trials: ??? Never started Rybelsus or Ozempic d/t fear of stomach SE/FARZAD ??? glimepiride caused hypoglycemia in the afternoon Home Glucose Monitoring are performed sporadically. 3 x weekly. Uses Freestyle testing supplies Has Freestyle sanjana but has never worn and fears being unable to understand the results so elected not to try BG this morning was 259 Before Brkfast Before Supper After Supper 134 118 156 191 148 206 245 190 187 181 138 173 203 177 192 142 186 AM PM Average 190 170 128 Lowest 173 134 118 Highest 206 245 138 Daily Avg 175 eA1c [id number] Prior Averages: 08/26/21 09/09/21 09/24/21 11/14/21 Daily Avg 157 168 131 138 eA1c 8.993397 8.46 7.20 7.44 Acute complications of diabetes: [...] Outpatient Medications Medication Sig Dispense Refill ??? Insulin Tresiba FlexTouch U-100 100 unit/mL (3 mL) Insulin Pen Inject 10 Units subcutaneously daily. Dose adjusting based on BG. Take 10-50 units based on BG daily Indications: type 2 diabetes mellitus 15 mL 11 ??? insulin needles, disposable, 32 gauge x 5/32 Needle Inject 1 each subcutaneously daily. Indications: diabetes 100 each 11 ??? nitroGLYcerin (Nitrostat) 0.[address] 1 tablet under the tongue See Admin Instructions. 30 tablet 5 ??? fluticasone propionate (Flonase) 50 mcg/actuation [place], Suspension 1 spray by Each Nare route [...] ??? Nebulizer Accessories Misc 1 each by Misc.(Non-Drug; [...] 1 each 11 ??? FreeStyle Sanjana 2 [place] Misc 1 each by Other route daily. [...] changes: Diabetes Medication Regimen at conclusion of 11/03/22 encounter: ??? Metformin XR 500 mg 2 tabs BID ??? START Tresiba 10 units daily Plans to go to pharmacy to review insulin use, if they are unable to show her will mydh message fora clinic appt with me in a week There are no diagnoses linked to this encounter. Efforts to improve adherence to therapy plan (if necessary) will be directed at: ??? Continue SMBG once daily in the morning (FBG) [...] review and follow up. Julia Low RPH 11/03/22 Total time spent: 45 minutes documented in this encounter Plan of Treatment Upcoming Encounters Date Type Department Care Team (Late st Contact Info) Description 03/20/2024 9:00 AM EDT TH Visit (TeleHealth) Sleep Center at [facility] [address] [place] [address] Denisse Hardwick [facility] 03/20/2024 2:00 PM EDT Clinical Support Family Medicine at [facility] [address] [place] [address] Julia Low [place] 05/01/2024 11:20 AM EDT Appointment Mammography/[place] [address] Rodney Padilla MD [address] [facility] [place] [address] 05/01/2024 1:45 PM EDT Office [place] [address] Juanpablo Hernandez MD [facility] [place] [address] 01/30/2025 1:30 PM EDT Appointment Hematology [place] [address] 01/30/2025 3:[address] [place] [address] Arturo Cordero MD [facility] DR HEMATOLOGY [place] [address] 01/30/2025 4:15 PM EDT Office Visit Hematology [place] [address] Arturo Cordero MD [facility] DR HEMATOLOGY [place] [address] documented as of this encounter Visit Diagnoses Diagnosis Type 2 diabetes mellitus without long-term current use of insulin documented in this encounter Care Teams Cook Candy Relationship Specialty Start Date End Date Rodney Padilla MD [address] [place] [address] PCP - General 07/18/22 documented as of this encounter
--- OUTSIDE RECORDS SUMMARY | 2024-03-04 21:20 | XMS_ITS | Encounter Summary ---
Author Organization [facility] Address [facility] [place] [address] Care Team Providers Care Sr. Vendor Management Associate Name Role Phone Rodney Padilla MD Primary Care Provider Reason for Visit * Reason Comments Medication Refill Encounter Details Date Type Department Care Team (Late st Contact Info) Description 09/15/2022 Refill Family Medicine at [facility] [address] [place] [address] Tamera Khan APRN [facility] DR [address]IL[address] [place] [address] Social History Tobacco Use Types Packs/Day Years [...] Telephone Encounter - Jade Kruse MA - 09/19/2022 9:20 AM EDT Prescription Renewal Request Name: Alize Gramajo : 1960 Prescription(s) Requested: Requested Prescriptions Pending Prescriptions Disp Refills ??? sucralfate (Carafate) 100 mg/mL Suspension [Pharmacy Med Name: SUCRALFATE 1 GM/10 ML SUSP] 1242mL 2 Sig: TAKE 10 ML BY MOUTH FOUR TIMES A DAY Date of Encounter last in This Dept (If need an appointment send to secretaries to schedule): 07/07/2022 Bill Next Encounter in This Dept: Visit date not found Date of Last Refill (for each medication): 06/16/2022 420ml w 5 refill Medication category requirements (labs etc): Meets Protocol (DH Medication and Refill Per Protocol: Internal Medicine and Primary Care Clinics ) : Status of request: Pended Allergies Allergen Reactions ??? Codeine Phosphate Nausea And Vomiting ??? Erythromycin Base Nausea Only ??? Azithromycin ??? Ibuprofen Stomach upset ??? Lisinopril cough ??? Nsaids (Non-Steroidal Anti-Inflammatory Drug) Nausea And Vomiting Jade Kruse MA 09/19/22 9:26 AM documented in this encounter Plan of Treatment Upcoming Encounters Date Type Department Care Team (Late st Contact Info) Description 03/20/2024 9:00 AM EDT TH Visit (TeleHealth) Sleep Center at [facility] [address] [place] [address] Denisse Hardwick, [facility] 03/20/2024 2:00 PM EDT Clinical Support Family Medicine at [facility] [address] [place] [address] Julia Low, [facility] 05/01/2024 11:20 AM EDT Appointment Mammography/DXA at [place] [phone] Rodney Padilla MD [address] [facility] [place], [place] [address] 05/01/2024 1:45 PM EDT Office [place] [address] Juanpablo Hernandez MD [facility] [place] [address] 01/30/2025 1:30 PM EDT Appointment Hematology [place] [address] 01/30/2025 3:[address] [place] [address] Arturo Cordero MD [facility] [address] [place] [address] 01/30/2025 4:15 PM EDT Office Visit Hematology [place] [address] Arturo Cordero MD [facility] [address] [place] [address] documented as of this encounter Visit Diagnoses Not on filedocumented in this encounter Care Teams Sr. Vendor Management Associate Relationship Specialty Start Date End Date Rodney Padilla MD [address] [place] [address] PCP - General 07/18/22 documented as of this encounter
--- OUTSIDE RECORDS SUMMARY | 2024-03-04 21:20 | XMS_ITS | Encounter Summary ---
Author Organization [facility] Address [facility]atherine [place] [address] Care Team Providers Care Clinical Psychiatrist Name Role Phone Rodney Padilla MD Primary Care Provider +1- [phone] Encounter Details Date Type Department Care Team (Latest Contact Info) Description 10/03/2022 Travel Social History Tobacco Use Types Packs/Day [...] EDT TH Visit (TeleHealth) Sleep Center at [facility] [address] [place] [address] Denisse Hardwick, [facility]AD[facility] 03/20/2024 2:00 PM EDT Clinical Support Family Medicine at [facility] [address] [place] [address] Julia Low, [facility] 05/01/2024 11:20 AM EDT Appointment Mammography/[place] [address] Rodney Padilla MD [address] [facility] [place], [place] [address] 05/01/2024 1:45 PM EDT Office [place] [address] Juanpablo Hernandez MD [facility] [place] [address] 01/30/2025 1:30 PM EDT Appointment Hematology [place] [address] 01/30/2025 3:[address] [place] [address] Arturo Cordero MD [facility] DR HEMATOLOGY [place] [address] 01/30/2025 4:15 PM EDT Office Visit Hematology [place] [address] Arturo Cordero MD [facility] DR HEMATOLOGY [place] [address] documented as of this encounter Visit Diagnoses Not on filedocumented in this encounter Care Teams Clinical Psychiatrist Relationship Specialty Start Date End Date Rodney Padilla MD [address] [place] [address] PCP - General 07/18/22 documented as of this encounter
--- OUTSIDE RECORDS SUMMARY | 2024-03-04 21:20 | XMS_ITS | Encounter Summary ---
Author Organization [facility] Address [facility] [place] [address] Care Team Providers Care Motor Analyst Name Role Phone Rodney Padilla MD Primary Care Provider +1- [phone] Encounter Details Date Type Department Care Team (Latest Contact Info) Description 11/23/2022 Travel Social History Tobacco Use Types Packs/Day [...] EDT TH Visit (TeleHealth) Sleep Center at [facility] [address] [place] [address] Denisse Hardwick, [facility]ACHIN[facility] 03/20/2024 2:00 PM EDT Clinical Support Family Medicine at [facility] [address] [place] [address] Julia Low, [facility] 05/01/2024 11:20 AM EDT Appointment Mammography/[place] [address] Rodney Padilla MD [address] [facility] [place], [place] [address] 05/01/2024 1:45 PM EDT Office [place] [address] Juanpablo Hernandez MD [facility] [place] [address] 01/30/2025 1:30 PM EDT Appointment Hematology [place] [address] 01/30/2025 3:[address] [place] [address] Arturo Cordero MD [facility] [place] [address] 01/30/2025 4:15 PM EDT Office Visit Hematology [place] [address] Arturo Cordero MD [facility] [address] [place] [address] documented as of this encounter Visit Diagnoses Not on filedocumented in this encounter Care Teams Motor Analyst Relationship Specialty Start Date End Date Rodney Padilla MD [address] [place] [address] PCP - General 07/18/22 documented as of this encounter
--- OUTSIDE RECORDS SUMMARY | 2024-03-04 21:20 | XMS_ITS | Encounter Summary ---
[place] [address] Care Team Providers Care Hatch Boss Name Role Phone Rodney Padilla MD Primary Care Provider [phone]- [phone] Reason for Visit * Diagnostic Test (Routine) - Closed Specialty Diagnoses / Procedures Referred By Gonzalez kumari Referred To Contact Radiology Diagnoses Dyspepsia Nausea without vomiting Procedures NM Gastric Emptying Scan Alejandra Pop, POULTRY SCIENTIST [address] [place] [address] [place] [address] Referral ID Status Reason Start Date Expiration Date V isits Requested Visits Authorized [id number] Closed Specialty Service Requested 06/17/2022 12/17/2023 1 1 Encounter Details Date Type Department Care Team (Latest Contact Info) Description 10/18/2022 10:22 AM EDT - 10/18/2022 11:59 PM EDT Hospital Encounter [place] [address] Alejandra Pop APRN [address] [place] [address] Discharge Disposition: Home Social History [...] 09/26/2022 09/19/2023 fluticasone propionate (Flonase) 50 mcg/actuation [place], Suspension 1 spray by Each Nare route [...] 1 each 12/10/2021 02/04/2023 FreeStyle Sanjana 2 [place] MiscIndications:diabe escobar mellitus 1 each by Other [...] Center at [facility] [address] [place] [address] Denisse Hardwick, AUTOMOTIVE BRAKE SPECIALIST [facility] 03/20/2024 2:00 PM EDT Clinical Support Family Medicine at [facility] [address] [place] [address] Julia Low [facility] 05/01/2024 11:20 AM EDT Appointment Mammography/[place] [address] Rodney Padilla MD [address] [place] [place] [address] 05/01/2024 1:45 PM EDT Office [place] [address] Juanpablo Hernandez MD [facility] [place] [address] 01/30/2025 1:30 PM EDT Appointment Hematology [place] [address] 01/30/2025 3:[address] Scan at [place] [phone] Arturo Cordero MD [facility] DR [place] [address] 01/30/2025 4:15 PM EDT Office Visit Hematology [place] [address] Arturo Cordero MD [facility] DR [place] [address] documented as of this encounter Procedures Procedure [...] who have questions please contact the health intensive care unit registered nurse that requested your imaging first. ? Narrative [...] patients who have questions please contactthe health intensive care unit registered nurse that requested your imaging first. Alejandra Pop POULTRY SCIENTIST IMG NM ORDERABLE S documented in this encounter Visit Diagnoses Not on filedocumented in this encounter Care Teams Hatch Boss Relationship Specialty Start Date End Date Rodney Padilla MD [address] [place] [address] PCP - General 07/18/22 documented as of this encounter
--- OUTSIDE RECORDS SUMMARY | 2024-03-04 21:20 | XMS_ITS | Encounter Summary ---
Author Organization [facility] [place] [address] Care Team Providers Care Jewelry Coater Name Role Phone Rodney Padilla MD Primary Care Provider Encounter Details Date Type Department Care Team (Late st Contact Info) Description 09/30/2022 Telephone Family Medicine at [address] [place] [address] Julia Low, [facility] Social History Tobacco Use Types Packs/Day Years [...] EDT TH Visit (TeleHealth) Sleep Center at [facility] [address] [place] [address] Denisse Hardwick, CONTINUOUS PROCESS COFFEE ROASTER [facility] 03/20/2024 2:00 PM EDT Clinical Support Family Medicine at [facility] [address] [place] [address] Julia Low, [facility] 05/01/2024 11:20 AM EDT Appointment Mammography/[place] [address] Rodney Padilla MD [address] [facility] [place] [place] [address] 05/01/2024 1:45 PM EDT Office [place] [address] Juanpablo Hernandez MD [facility] [place] [address] 01/30/2025 1:30 PM EDT Appointment Hematology [place] [address] 01/30/2025 3:[address] [place] [address] Arturo Cordero MD [facility] [place] [address] 01/30/2025 4:15 PM EDT Office Visit Hematology [place] [address] Arturo Cordero MD [facility] [place] [address] documented as of this encounter Visit Diagnoses Not on filedocumented in this encounter Care Teams Jewelry Coater Relationship Specialty Start Date End Date Rodney Padilla MD [address] [place] [address] PCP - General 07/18/22 documented as of this encounter
--- OUTSIDE RECORDS SUMMARY | 2024-03-04 21:20 | XMS_ITS | Encounter Summary ---
Author Organization [facility] Address [facility] [place] [address] Care Team Providers Care Adjuster Arbitrator Name Role Phone Luis E Narayan MD Primary Care Provider +1- [phone] Encounter Details Date Type Department Care Team (Latest Contact Info) Description 06/23/2022 Travel Social History Tobacco Use Types Packs/Day [...] EDT TH Visit (TeleHealth) Sleep Center at [facility] [address] [place] [address] Denisse Hardwick, ENTRY LEVEL ACCOUNTING CLERK [facility] 03/20/2024 2:00 PM EDT Clinical Support Family Medicine at [facility] [address] [place] [address] Julia Low, [facility] 05/01/2024 11:20 AM EDT Appointment Mammography/[place] [address] Rodney Padilla MD [address] [facility] [place], [place] [address] 05/01/2024 1:45 PM EDT Office [place] [address] Juanpablo Hernandez MD [facility] [place] [address] 01/30/2025 1:30 PM EDT Appointment Hematology [place] [address] 01/30/2025 3:[address] [place] [address] Arturo Cordero MD [facility] [place] [address] 01/30/2025 4:15 PM EDT Office Visit [place]ematology [place] [address] Arturo Cordero MD [facility] [place] [address] documented as of this encounter Visit Diagnoses Not on filedocumented in this encounter Care Teams Adjuster Arbitrator Relationship Specialty Start Date End Date Luis E Narayan MD [facility] [address] [place] [address] PCP - General Family Medicine 01/20/22 07/17/22 documented as of this encounter
--- OUTSIDE RECORDS SUMMARY | 2024-03-04 21:20 | XMS_ITS | Encounter Summary ---
Author Organization [facility] Address [facility] [place] [address] Care Team Providers Care Vice President Investor Relations Name Role Phone Rodney Padilla MD Primary Care Provider Reason for Visit * Reason Onset Date Comments Medication Refill 09/18/2022 Encounter Details Date Type Department Care Team (Late st Contact Info) Description 09/18/2022 Refill Family Medicine at [facility] [address] [place] [address] Tamera Khan, KATHIA [facility] [address] LILI [place] [address] Social History Tobacco Use Types Packs/Day Years [...] Center at [facility] [address] [place] [address] Denisse Hardwick [facility] 03/20/2024 2:00 PM EDT Clinical Support Family Medicine at [facility] [address] [place] [address] Julia Low [facility] 05/01/2024 11:20 AM EDT Appointment Mammography/[place] [address] Rodney Padilla MD [address] [place] [place] [address] 05/01/2024 1:45 PM EDT Office [place] [address] Juanpablo Hernandez MD [facility] [place] [address] 01/30/2025 1:30 PM EDT Appointment Hematology and Oncology at [place] [address] 01/30/2025 3:[address] Scan at [address] Arturo Cordero MD [facility] DR [place] [address] 01/30/2025 4:15 PM EDT Office Visit Hematology and Oncology at [place] [phone] Arturo Cordero MD [facility] DR [place] [address] documented as of this encounter Visit Diagnoses Not on filedocumented in this encounter Care Teams Vice President Investor Relations Relationship Specialty Start Date End Date Rodney Padilla MD [address] [place] [place] [address] PCP - General 07/18/22 documented as of this encounter
--- OUTSIDE RECORDS SUMMARY | 2024-03-04 21:20 | XMS_ITS | Encounter Summary ---
Author Organization [facility] Address [facility] [place] [address] Care Team Providers Care Burrer Marker Axle Name Role Phone Luis E Narayan MD Primary Care Provider +[phone] Encounter Details Date Type Department Care Team (Latest Contact Info) Description 07/07/2022 Travel Social History Tobacco Use Types Packs/Day [...] at [facility] [address] [place] [address] Denisse Hardwick, CERTIFIED MEDICAL RECORDS [facility] 03/20/2024 2:00 PM EDT Clinical Support Family Medicine at [facility] [address] [place] [address] Julia Low, [facility] 05/01/2024 11:20 AM EDT Appointment Mammography[place] [address] Rodney Padilla MD [address] [facility] [place], [place] [address] 05/01/2024 1:45 PM EDT Office [place] [address] Juanpablo Hernandez MD [facility] [place] [address] 01/30/2025 1:30 PM EDT Appointment Hematology [place] [address] 01/30/2025 3:[address] [place] [place] [address] Arturo Cordero MD [facility] [place] [address] 01/30/2025 4:15 PM EDT Office Visit [place]ematology [place] [address] Arturo Cordero MD [facility] [place] [address] documented as of this encounter Visit Diagnoses Not on filedocumented in this encounter Care Teams Burrer Marker Axle Relationship Specialty Start Date End Date Luis E Narayan MD [facility] [address] [place] [address] PCP - General Family Medicine 01/20/22 07/17/22 documented as of this encounter
--- OUTSIDE RECORDS SUMMARY | 2024-03-04 21:20 | XMS_ITS | Encounter Summary ---
Author Organization [facility] Address [facility] [place] [address] Care Team Providers Care Spray Pilot Name Role Phone Luis E Narayan MD Primary Care Provider +1- [phone] Reason for Visit * Reason Onset Date Comments Medication Refill 07/11/2022 Encounter Details Date Type Department Care Team (Late st Contact Info) Description 07/11/2022 Refill Family Medicine at [facility] [address] [place] [address] Ally Lerner APRN [facility] [place] [address] Social History Tobacco Use Types Packs/Day Years [...] Telephone Encounter - Jade Kruse MA - 07/15/2022 7:03 AM EST Prescription Refill Request Prescription(s) Requested: Requested Prescriptions Pending Prescriptions Disp Refills ??? nystatin (MYCOSTATIN) 100,000 unit/gram Powder 15 g 3 Sig: Apply topically 4 times daily. Date of Encounter last in This Dept (If over a year and no apt scheduled send to secretaries to schedule): 07/07/2022 Bill Next Encounter in This Dept: Visit date not found Date of Last Refill (for each medication): 04/21/2022 15g no refill Medication category req. lab studies documented in this encounter Plan of Treatment Upcoming Encounters Date Type Department Care Team (Late st Contact Info) Description 03/20/2024 9:00 AM EDT TH Visit (TeleHealth) Sleep Center at [facility] [address] [place] [place] [address] Denisse Hardwick, [facility] 03/20/2024 2:00 PM EDT Clinical Support Family Medicine at [facility] [address] [place] [address] Julia Low, [facility] 05/01/2024 11:20 AM EDT Appointment Mammography/DXA at [place] [phone] Rodney Padilla MD [address] [place] [address] 05/01/2024 1:45 PM EDT Office Visit Ophthalmology at [place] [phone] Juanpablo Hernandez MD [facility] [place] [address] 01/30/2025 1:30 PM EDT Appointment Hematology and Oncology at [place] [phone] 01/30/2025 3:[address] Scan at [place] [phone] Arturo Cordero MD [facility] HEMATOLOGY [place] [address] 01/30/2025 4:15 PM EDT Office Visit Hematology and Oncology at [place] [phone] Arturo Cordero MD [facility] [place] [address] documented as of this encounter Visit Diagnoses Not on filedocumented in this encounter Care Teams Spray Pilot Relationship Specialty Start Date End Date Luis E Narayan MD [facility] [address] [place] [address] PCP - General Family Medicine 01/20/22 07/17/22 documented as of this encounter
--- OUTSIDE RECORDS SUMMARY | 2024-03-04 21:20 | XMS_ITS | Encounter Summary ---
[place] [address] Care Team Providers Care Supervisor Wood Crew Name Role Phone Rodney Padilla MD Primary Care Provider +1- [phone] Reason for Visit * Diagnostic Test (Routine) - Closed Specialty Diagnoses / Procedures Referred By Gonzalez kumari Referred To Contact Radiology Diagnoses Dyspepsia Nausea without vomiting Procedures NM Gastric Emptying Scan Alejandra Pop, VP CLIENT SERVICES [address] [place] [address] [place] [address] Referral ID Status Reason Start Date Expiration Date V isits Requested Visits Authorized [id number] Closed Specialty Service Requested 06/17/2022 12/17/2023 1 1 Encounter Details Date Type Department Care Team (Latest Contact Info) Description 10/18/2022 10:21 AM EDT Hospital Encounter [place] [address] Alejandra Pop APRN [address] [place] [address] Discharge Disposition: Home Social History [...] 09/26/2022 09/19/2023 fluticasone propionate (Flonase) 50 mcg/actuation [place], Suspension 1 spray by Each Nare route [...] 1 each 12/10/2021 02/04/2023 FreeStyle Sanjana 2 [place] MiscIndications:diabe escobar mellitus 1 each by Other [...] EDT TH Visit (TeleHealth) Sleep Center at [facility] [address] [place] [address] Denisse Hardwick, [facility] 03/20/2024 2:00 PM EDT Clinical Support Family Medicine at [facility] [address] [place] [address] Julia Low, [facility] 05/01/2024 11:20 AM EDT Appointment Mammography[place] [address] Rodney Padilla MD [address] [place] [place] [address] 05/01/2024 1:45 PM EDT Office Visit Ophthalmology at [place] [phone] Juanpablo Hernandez MD [facility] [place] [place] [address] 01/30/2025 1:30 PM EDT Appointment Hematology and Oncology at [place] [phone] 01/30/2025 3:[address] Scan at [place] [phone] Arturo Cordero MD [facility] [place] [address] 01/30/2025 4:15 PM EDT Office Visit Hematology [place] [address] Arturo Cordero MD [facility] [place] [address] documented as of this encounter Procedures Procedure [...] who have questions please contact the health rn managed care that requested your imaging first. ? Electronically signed by: Brett Chapman MD, [facility] ([phone]), at 10/18/2022 3:12 PM Narrative 10/18/2022 3:12 PM EDT EXAMINATION: NM [...] patients who have questions please contactthe health rn managed care that requested your imaging first. Alejandra Pop VP CLIENT SERVICES IMG NM ORDERABLE S documented in this encounter Visit Diagnoses Not on filedocumented in this encounter Care Teams Supervisor Wood Crew Relationship Specialty Start Date End Date Rodney Padilla MD [address] [place] [address] PCP - General 07/18/22 documented as of this encounter
--- OUTSIDE RECORDS SUMMARY | 2024-03-04 21:20 | XMS_ITS | Encounter Summary ---
Author Organization [facility] Address [facility] [address] Care Team Providers Care Polishing Machine Operator Name Role Phone Rodney Padilla MD Primary Care Provider Reason for Visit * Reason Onset Date Comments Medication Refill 09/25/2022 Encounter Details Date Type Department Care Team (Late st Contact Info) Description 09/25/2022 Refill Family Medicine at [facility] [address] [place] [address] Luis E Narayan MD [facility] [address] [place] [address] Social History Tobacco Use Types Packs/Day Years [...] Notes * [facility] En[facility] 09/26/2022 11:41 AM EDT Prescription Renewal Request Name: Alize Gramajo : 1960 Prescription(s) Requested: Requested Prescriptions Pending Prescriptions Disp Refills ??? fluticasone propionate (Flonase) 50 mcg/actuation [place], Suspension 16 g 11 Si spray by Each Nare route 2 times daily. Date of Encounter last in This Dept (If need an appointment send to secretaries to schedule): 07/07/22 Next Encounter in This Dept: Visit date not found Date of Last Refill (for each medication): 09/10/21 Medication category requirements (labs etc): Meets Protocol ( Medication and Refill Per Protocol: Internal Medicine and Primary Care Clinics ) : yes Status of request: Pended Allergies Allergen Reactions ??? Codeine Phosphate Nausea And Vomiting ??? Erythromycin Base Nausea Only ??? Azithromycin ??? Ibuprofen Stomach upset ??? Lisinopril cough ??? Nsaids (Non-Steroidal Anti-Inflammatory Drug) Nausea And Vomiting SONY Taveras 09/26/22 11:41 AM documented in this encounter Plan of Treatment Upcoming Encounters Date Type Department Care Team (Late st Contact Info) Description 03/20/2024 9:00 AM EDT TH Visit (TeleHealth) Sleep Center at [facility] [address] [place] [address] Denisse Hardwick, [facility] 03/20/2024 2:00 PM EDT Clinical Support Family Medicine [facility] [address] [place] [address] Julia Low, [facility] 05/01/2024 11:20 AM EDT Appointment Mammography/DXA at [place] [phone] Rodney Padilla MD [address] [place] [address] 05/01/2024 1:45 PM EDT Office [place] [address] [facility] [place] [place] [address] 01/30/2025 1:30 PM EDT Appointment Hematology [place] [address] 01/30/2025 3:[address] [place] [address] [facility] DR [place] [address] 01/30/2025 4:15 PM EDT Office Visit Hematology [place] [address] [facility] [address] [place] [address] documented as of this encounter Visit Diagnoses Not on filedocumented in this encounter Care Teams Polishing Machine Operator Relationship Specialty Start Date End Date Rodney Padilla MD [address] [place] [place] [address] PCP - General 07/18/22 documented as of this encounter
--- OUTSIDE RECORDS SUMMARY | 2024-03-04 21:21 | XMS_ITS | Encounter Summary ---
Author Organization Formerly [facility] [place] [address] Care Team Providers Care Supervisor Telephone Answering Service Name Role Phone Luis E Narayan MD Primary Care Provider Reason for Visit * Diagnostic Test (Routine) - Closed Specialty Diagnoses / Procedures Referred By Gonzalez kumari Referred To Contact Gastroenterology Diagnoses Bloating Dyspepsia HBT - glucose - bloating Procedures Breath Hydrogen Test HBT - glucose - bloating Alejandra Pop, GAS GENERATOR OPERATOR [address] [place] [address] [facility] [address] [place] [address] Referral ID Status Reason Start Date Expiration Date V isits Requested Visits Authorized [id number] Closed Consult, Test & Treat 03/01/2022 03/01/2023 1 1 Encounter Details Date Type Department Care Team (Late st Contact Info) Description 05/13/2022 10:00 AM EDT Procedure [place] [phone] Bloating; Dyspepsia Social History Tobacco Use Types Packs/Day Years [...] as of this encounter Progress Notes * Alejandra Pop APRN - 05/13/2022 10:00 AM EDT Gastroenterology Breath Test Report Patient: Alize Gramajo Date Of : 1960 PCP: Luis E Narayan MD Referring: Alejandra Pop STUDY DATE: 05/17/2022 PROVIDER: Alejandra Pop APRN INDICATION: bloating ppmH2 ppmCH4 CO2(f) Fasting Baseline 2 12 3.0/2.03 Administer sugar: Glucose 75g with 90 mL H2O Sample Time ppmH2 ppmCH4 CO2(f) 90 min 2 7 3.6/1.69 Interpretation: Negative hydrogen breath test. Patient had excess production of methane which can be associated with constipation. Patient reported no symptoms during the test. Clinical interpretation is based on the Hydrogen and Methane-Based Breath Testing in Gastrointestinal Disorders: The [place] Consensus (Am J Gastroenterol 2017; 112(5):775-84. Apositive breath test is defined as a rise in hydrogen production >20 ppm compared to baseline within 90 minutes. Methane-positive is defined by at least 10 ppm production of methane. Signed, Alejandra Pop APRN [place] [address] P: [phone] F: [phone] Copy: Alejandra Narayan MD documented in this encounter Plan of Treatment Upcoming Encounters Date Type Department Care Team (Late st Contact Info) Description 03/20/2024 9:00 AM EDT TH Visit (TeleHealth) Sleep Center at [facility] [address] [place] [phone] Denisse Hardwick, [facility] 03/20/2024 2:00 PM EDT Clinical Support Family Medicine at [facility] [address] [place] [address] Julia Low, [facility] 05/01/2024 11:20 AM EDT Appointment Mammography/[place] [phone] Rodney Padilla MD [address] [facility] [place], [place] [phone] 05/01/2024 1:45 PM EDT Office [place] [phone] Juanpablo Hernandez MD [facility] [place] [address] 01/30/2025 1:30 PM EDT Appointment Hematology and Oncology at [place] [phone] 01/30/2025 3:[address] Scan at [place] [phone] Arturo Cordero MD [facility] DR [place] [address] 01/30/2025 4:15 PM EDT Office Visit [place]ology [place] [phone] Arturo Cordero MD [facility] DR [place] [address] documented as of this encounter Visit Diagnoses Diagnosis Bloating Flatulence, eructation, and gas pain Dyspepsia Dyspepsia and other specified disorders of function of stomach documented in this encounter Care Teams Supervisor Telephone Answering Service Relationship Specialty Start Date End Date Luis E Narayan MD [facility] [address] [place] [address] PCP - General Family Medicine 01/20/22 07/17/22 documented as of this encounter
--- OUTSIDE RECORDS SUMMARY | 2024-03-04 21:21 | XMS_ITS | Encounter Summary ---
Author Organization [facility] Address [facility] [place] [address] Care Team Providers Care Conservation Worker Name Role Phone Rodney Padilla MD Primary Care Provider +1- [phone] Reason for Visit * Reason Onset Date Comments Medication Refill 06/20/2022 Encounter Details Date Type Department Care Team (Late st Contact Info) Description 06/20/2022 Refill Family Medicine at [facility] [address] [place] [address] Luis E Narayan MD [facility] [address] WALKER-[place] [address] COPD Social History Tobacco Use Types Packs/Day [...] Telephone Encounter - Jade Kruse MA - 06/23/2022 9:19 AM EST Prescription Refill Request Prescription(s) Requested: Requested Prescriptions Pending Prescriptions Disp Refills ??? budesonide-formoteroL (Symbicort) 80-4.5 mcg/actuation HFA Aerosol Inhaler 3 each 3 Sig: Inhale 2 puffs into the lungs 2 times daily. Date of Encounter last in This Dept (If over a year and no apt scheduled send to secretaries to schedule): 06/07/2022 Bill Next Encounter in This Dept: 07/07/2022 Date of Last Refill (for each medication): 05/26/2021 Medication category req. lab studies documented in this encounter Plan of Treatment Upcoming Encounters Date Type Department Care Team (Late st Contact Info) Description 03/20/2024 9:00 AM EDT TH Visit (TeleHealth) Sleep Center at [facility] [address] [place] [address] Denisse Hardwick, [facility] 03/20/2024 2:00 PM EDT Clinical Support Family Medicine at [facility] [address] [place] [address] Julia Low, [facility] 05/01/2024 11:20 AM EDT Appointment Mammography/DXA at [place] [phone] Rodney Padilla MD [address] [place] [address] 05/01/2024 1:45 PM EDT Office Visit Ophthalmology at [place] [phone] Juanpablo Hernandez MD [facility] [place] [address] 01/30/2025 1:30 PM EDT Appointment Hematology and Oncology at [place] [phone] 01/30/2025 3:[address] Scan at [place] [phone] Arturo Cordero MD [facility] DR [place] [address] 01/30/2025 4:15 PM EDT Office Visit Hematology [place] [address] Arturo Cordero MD [facility] DR HEMATOLOGY [place] [address] documented as of this encounter Visit Diagnoses Diagnosis COPD Simple chronic bronchitis documented in this encounter Care Teams Conservation Worker Relationship Specialty Start Date End Date Rodney Padilla MD [address] [place] [address] PCP - General 07/18/22 documented as of this encounter
--- OUTSIDE RECORDS SUMMARY | 2024-03-04 21:21 | XMS_ITS | Encounter Summary ---
Author [place] [address] Care Team Providers Care Physical Scientist Name Role Phone Luis E Narayan MD Primary Care Provider +1- [phone] Reason for Visit * Reason Comments Genetic Evaluation * Consultation (Routine) - Closed Specialty Diagnoses / Procedures Referred By Gonzalez kumari Referred To Contact Hematology and Oncology Diagnoses History of malignant melanoma of eye Alonso Young MD [facility] [address] [place] [address] [facility] [address] [place] [address] Referral ID Status Reason Start Date Expiration Date V isits Requested Visits Authorized [id number] Closed Consult, Test & Treat 02/14/2022 02/14/2023 1 1 Encounter Details Date Type Department Care Team (Late st Contact Info) Description 05/13/2022 12:00 PM EDT Office Visit Hematology [place] [address] Tito Matta V, [facility] Hematology/[place] [address] Malignant melanoma of conjunctiva, left; Malignant neoplasm of left kidney; Family history of kidney cancer Social History Tobacco Use Types Packs/Day Years [...] as of this encounter Progress Notes * Tito Matta LGC - 05/13/2022 12:00 PM EDT Alize Gramajo was seen by SONJA Cronin in consultation at the request of Alonso Robin advise regarding possible heritable predisposition to cancer. I spent 40 minutes of this face to face encounter with the patient gathering medical and family history and discussing the likelihood of a genetic predisposition to cancer and the option of genetic testing. Reason for referral/Chief complaint Personal history of ocular melanoma and kidney cancer and family history of kidney cancer. 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 She was seen by the melanoma clinic and underwent treatment with Mitomycin-C eyedrop total 3 weeks/every other week completedon 09/18/2020. She follows with Dr. Cordero. Tumor NGS testing of the kidney in 2018 identified a VHL variant, specifically c.344A>G (p.H115R), with no VAF mentioned in the report. Tumor NGS testing of the ocular melanoma in 2019 identified a NF1 variant, specifically c.3313A>T (p.K1105*), with no VAF mentioned in the report. The VHL variant was not identified on the melanoma NGS, and the NF1 variant was not identified on the kidney tumor NGS. Family History of Cancer Problem Relation Age of Onset ??? Uterine Cancer Mother 76 hysterectomy age 76 ??? Kidney Cancer Maternal Grandmother 56 ??? Bladder Cancer Maternal Grandmother 56 ??? Breast Cancer Maternal Aunt ??? Kidney Cancer Maternal Aunt ??? Cancer Maternal Half-Brother kidney vs pancreatic primary ??? Brain Cancer Paternal Aunt ??? Cancer Paternal Aunt Unknown primary Maternal ethnic background is [place]. Paternal ethnic background is [place]. There is no known Ashkenazi Buddhist ancestry. Genetic risk assessment Based on personal and/or family history, the likelihood that Alize would be found to have a mutation in a cancer predisposition gene is high enough to offer the option of genetic testing. Specifically, Alize meets NCCN criteria for testing of hereditary renal cell carcinomas due to her personalhistory of ccRCC and family history of renal cancer in her maternal aunt, maternal grandmother, andpossibly her maternal half-brother. We specifically discussed analysis of the BAP1 gene due to Alize's personal history of ocular melanoma in addition to the ccRCC. Mutations in BAP1 are also associated with increased risk for mesothelioma and cutaneous melanoma. Mutations in the VHL gene cause an elevated risk for ccRCC, as well as other findings such as IT NETWORK ARCHITECT and ocular hemangioblastomas, paragangliomas/pheochromocytomas, pancreatic neuroendocrine tumors, and tumors of the inner ear (endolymphatic sac tumors). Panel genetic testing for an inherited predisposition to cancer, including renal cancer, was discussed. The risks, benefits and limitations of panel genetic testing were reviewed, specifically a highrate of identifying a variant of uncertain significance, lack of knowledge of cancer risk for newlyidentified, moderate risk genes included in the panel and lack of effective screening, as well as cancer risk for other cancers not observed in the family. We reviewed dominant inheritance, meaning that if a mutation is detected there is a 50% chance for Alize's children and siblings to have also inherited the same gene alteration. Alize opted for testing with [facility]'s Renal/Urinary Tract Cancers Panel, a next generation sequencing panel that simultaneously analyzes 25 genes, including BAP1 and VHL, that contribute to increased risk for cancer. Testing will reflex to [facility] Multi-Cancer Panel, an 84 gene panel (including the genes on the Renal/Urinary Tract Cancers Panel). Alize was consented. Her blood sample was drawn and sent to [facility]. We reviewed [facility]'s billing policy. Alize will be notified by text and/or email regarding her estimated out of pocket cost for testing once [facility] completes their benefits investigation. At thattime, if Alize is concerned about the estimated test cost she will have the option to contact [facility] directly and either apply for [facility]'s patient assistance program to try and reduce cost of testing based on income information, cancel testing, or switch to a self-pay option of $250. If Alize does not respond to [facility], testing will be billed to her insurance as the default option. Testing will take up to 3 weeks from when the lab receives the sample. Alize will be contacted via telephone once her test results become available. If positive, we will offer a follow-up appointment. At that time, we will discuss with Alize the implications that this test result may have for her, as well as her family members. We will also provide Alize with screening guidelines for cancerprevention and early detection, as well as answer any questions she may have. documented in this encounter Plan of Treatment Upcoming Encounters Date Type Department Care Team (Late st Contact Info) Description 03/20/2024 9:00 AM EDT TH Visit (TeleHealth) Sleep Center at [facility] [address] [place] [phone] Denisse Hardwick, [facility] 03/20/2024 2:00 PM EDT Clinical Support Family Medicine at [facility] [address] [place] [address] Julia Low, [facility] 05/01/2024 11:20 AM EDT Appointment Mammography/[place] [address] Rdoney Padilla MD [address] [facility] [place], [place] [address] 05/01/2024 1:45 PM EDT Office [place] [address] Juanpablo Hernandez MD [facility] [place] [address] 01/30/2025 1:30 PM EDT Appointment Hematology [place] [address] 01/30/2025 3:[address] [place] [address] Arturo Cordero MD [facility] H[place]ATOLOG[place] [address] 01/30/2025 4:15 PM EDT Office Visit Hematology [place] [address] Arturo Cordero MD [facility] [place]ATOLOG[place] [address] Scheduled Referrals Name Type Priority Associated Diagnoses Orde r Schedule Referral to Genetics Outpatient Referral Routine History of malignant melanoma of eye Ordered: 02/14/2022 documented as of this encounter Visit Diagnoses Diagnosis Malignant melanoma of conjunctiva, left Malignant neoplasm of left kidney Family history of kidney cancer Family history of malignant neoplasm of kidney documented in this encounter Care Teams Physical Scientist Relationship Specialty Start Date End Date Luis E Narayan MD [facility] [address] [place] [address] PCP - General Family Medicine 01/20/22 07/17/22 documented as of this encounter
--- OUTSIDE RECORDS SUMMARY | 2024-03-04 21:21 | XMS_ITS | Encounter Summary ---
Author Organization [facility] Address [facility] [place] [address] Care Team Providers Care Pipe Layer Name Role Phone Luis E Narayan MD Primary Care Provider +1- [phone] Reason for Visit * Reason Onset Date Comments Medication Refill 05/17/2022 Encounter Details Date Type Department Care Team (Late st Contact Info) Description 05/17/2022 Refill Family Medicine at [facility] [address] [place] [address] Terry Love, REVIEW MANAGER [facility] [address] [facility]ALKER-FAMILY MEDICINE [place], [place] [phone] Social History Tobacco Use Types Packs/Day Years [...] Telephone Encounter - Jade Kruse MA - 05/17/2022 3:02 PM EST Prescription Refill Request Prescription(s) Requested: Requested Prescriptions Pending Prescriptions Disp Refills ??? losartan (Cozaar) 100 mg Tablet 90 tablet 3 Sig: Take 1 tablet by mouth daily. Date of Encounter last in This Dept (If over a year and no apt scheduled send to secretaries to schedule): 04/19/2022 Michelle Next Encounter in This Dept: Visit date not found Date of Last Refill (for each medication): 04/18/2022 Medication category req. lab studies Lab Results Component Value Date NA 138 04/12/2022 K 4.5 04/12/2022 CL 99 04/12/2022 CO2 27 04/12/2022 BUN 11 04/12/2022 CREATININE 0.96 04/12/2022 GLUCOSE 278 (H) 04/12/2022 GLUCFASTING 116 (H) 06/29/2019 CALCIUM 10.0 04/12/2022 ESTGFR 67 04/12/2022 documented in this encounter Plan of Treatment Upcoming Encounters Date Type Department Care Team (Late st Contact Info) Description 03/20/2024 9:00 AM EDT TH Visit (TeleHealth) Sleep Center at [facility] [address] [place] [address] Denisse Hardwick, [facility] 03/20/2024 2:00 PM EDT Clinical Support Family Medicine at [facility] [address] [place] [address] Julia Low, [facility] 05/01/2024 11:20 AM EDT Appointment Mammography/[place] [address] Rodney Padilla MD [address] [place] [address] 05/01/2024 1:45 PM EDT Office [place] [address] Juanpablo Hernandez MD [facility] [place] [address] 01/30/2025 1:30 PM EDT Appointment Hematology [place] [address] 01/30/2025 3:[address] [place] [address] Arturo Cordero MD [facility] HEMATOLOGY AND ONCOLOGY [place], [place] [address] 01/30/2025 4:15 PM EDT Office Visit Hematology [place] [address] Arturo Cordero MD [facility] [place] [address] documented as of this encounter Visit Diagnoses Not on filedocumented in this encounter Care Teams Pipe Layer Relationship Specialty Start Date End Date Luis E Narayan MD [facility] [address] [place] [address] PCP - General Family Medicine 01/20/22 07/17/22 documented as of this encounter
--- OUTSIDE RECORDS SUMMARY | 2024-03-04 21:21 | XMS_ITS | Encounter Summary ---
Author Organization [facility] Address [facility] [place] [address] Care Team Providers Care Touch Up Painter Hand Name Role Phone Luis E Narayan MD Primary Care Provider +1- [phone] Reason for Visit * Reason Comments Melanoma Encounter Details Date Type Department Care Team (Late st Contact Info) Description 06/01/2022 12:30 PM EST Office [place] [address] Juanpablo Hernandez MD [facility] [place] [place] [address] Malignant melanoma of conjunctiva, left; Diabetic eye exam Social History Tobacco Use Types Packs/Day Years [...] * Patient Instructions* Juanpablo Hernandez MD - 06/01/2022 12:30 PM EST Medications: Use eye medications [...] Progress Notes * Juanpablo Hernandez MD - 06/01/2022 12:30 PM EST Encounter Diagnoses Name Primary? Malignant melanoma of conjunctiva, left ??? Diabetic eye exam Alize Gramajo is a 61 y.o. with [...] sun. - Continue follow ups with Dr. Flako MAK with A1C of 9.2: - DFE next visit, no evidence of NPDR/PDR at last visit Current smoker but denies orthopnea, Hx of clear cell renal cell carcinoma Plan: - Follow up with dermatology and heme/onc as planned - Follow up 4-5 months or as needed - Findings and concerns discussed with Alize and she expressed understanding. Upon Return CEE I, Tere Albarran, have performed the documentation for this encounter in the presence of and acting asa scribe for Juanpablo Hernandez MD. I performed [...] [facility] [address] [place] [address] Denisse Hardwick, PRODUCTION CONTROL SUPERVISOR [facility] 03/20/2024 2:00 PM EDT Clinical Support Family Medicine at [facility] [address] [place] [address] Julia Low [facility] 05/01/2024 11:20 AM EDT Appointment Mammography/DXA at [place] [address] Rodney Padilla MD [address] [place] [address] 05/01/2024 1:45 PM EDT Office Visit Ophthalmology at [place] [address] Juanpablo Hernandez MD [facility] [place] [place] [address] 01/30/2025 1:30 PM EDT Appointment Hematology and Oncology at [place] [address] 01/30/2025 3:[address] Scan at [place] [address] Arturo Cordero MD [facility] [address] [place] [address] 01/30/2025 4:15 PM EDT Office Visit Hematology and Oncology at [place] [address] Arturo Cordero MD [facility] [address] [place] [address] documented as of this encounter Visit Diagnoses Diagnosis Malignant melanoma of conjunctiva, left Diabetic eye exam Examination of eyes and vision documented in this encounter Care Teams Touch Up Painter Hand Relationship Specialty Start Date End Date Luis E Narayan MD [facility] [address] [place] [address] PCP - General Family Medicine 01/20/22 07/17/22 documented as of this encounter
--- OUTSIDE RECORDS SUMMARY | 2024-03-04 21:21 | XMS_ITS | Encounter Summary ---
Author Organization [facility] [place] [address] Care Team Providers Care Field Representatives Director Name Role Phone Luis E Narayan MD Primary Care Provider +1- [phone] Encounter Details Date Type Department Care Team (Late st Contact Info) Description 05/07/2022 Telephone Hematology [place] [address] Dar Fernandez MD [facility] DR HEMATOLOGY/[place] [address] Social History Tobacco Use Types Packs/Day Years [...] encounter Miscellaneous Notes * Telephone Encounter - Dar Fernandez MD - 05/07/2022 1:53 PM EDT Heme-Onc Staff I have reviewed the patient's record and, given personal and/or family history of cancer she shouldbe seen by a genetic counselor. This is scheduled for next week. Dar Fernandez MD boiler shop supervisor in Hematology-Oncology documented in this encounter Plan of Treatment Upcoming Encounters Date Type Department Care Team (Late st Contact Info) Description 03/20/2024 9:00 AM EDT TH Visit (TeleHealth) Sleep Center at [facility] [address] [place] [address] Denisse [place], COMPUTER ARCHITECT [facility] 03/20/2024 2:00 PM EDT Clinical Support Family Medicine at [facility] [address] [place] [address] Julia Low, [facility] 05/01/2024 11:20 AM EDT Appointment Mammography/[place] [address] Rodney Padilla MD [address] [place] [address] 05/01/2024 1:45 PM EDT Office Visit Ophthalmology at [place] [phone] Juanpablo Hernandez MD [facility] [address] 01/30/2025 1:30 PM EDT Appointment Hematology and Oncology at [address] 01/30/2025 3:[address] Scan at [place] [phone] Arturo Cordero MD [facility] DR [place] [address] 01/30/2025 4:15 PM EDT Office Visit Hematology and Oncology at [place] [phone] Arturo Cordero MD [facility] DR [place] [address] documented as of this encounter Visit Diagnoses Not on filedocumented in this encounter Care Teams Field Representatives Director Relationship Specialty Start Date End Date Luis E Narayan MD [facility] [address] [address] PCP - General Family Medicine 01/20/22 07/17/22 documented as of this encounter
--- OUTSIDE RECORDS SUMMARY | 2024-03-04 21:21 | XMS_ITS | Encounter Summary ---
Author Organization [facility] [place] [address] Care Team Providers Care Train Starter Name Role Phone Luis E Narayan MD Primary Care Provider [phone] Reason for Referral * Psychiatric (Routine) - Closed Specialty Diagnoses / Procedures Referred By Gonzalez kumari Referred To Contact Psychiatry Diagnoses Chronic insomnia Asha Morataya MD [facility] [place] [address] Sadie Weinberg, PhD [facility] [address] [place] [address] Referral ID Status Reason Start Date Expiration Date V isits Requested Visits Authorized [id number] Closed Specialty Service Requested 04/19/2022 04/19/2023 1 1 Encounter Details Date Type Department Care Team (Late st Contact Info) Description 04/19/2022 11:00 AM EDT Office Visit Sleep Center at [facility] [address] [place] [address] Asha Morataya MD [facility] [place] [address] Chronic insomnia; TITO (obstructive sleep apnea) Social History Tobacco Use Types Packs/Day Years [...] Sign Reading Time Taken Comments Blood Pressure 119/49 04/19/2022 10:52 AM EDT Pulse 78 04/19/2022 10:52 AM EDT Temperature - - Respiratory Rate - - Oxygen Saturation 99% 04/19/2022 10: 52 AM EDT Inhaled Oxygen Concentration - - Weight 109.5 kg (241 lb 4.8 oz) 022 10:52 AM EDT Height 161.3 cm (5' 3.5) 04/19/2022 10 :52 AM EDT Body Mass Index 42.07 04/19/2022 10:52 AM EDT documented in this encounter Patient Instructions * Patient Instructions* Asha Morataya MD - 04/19/2022 11:00 AM EDT 1) Get up at the same time seven days out of the week. 2) Only go to bed when feeling sleepy. 3) Wind down in the evening without electronics. 4) Stimulus Control: If lying in bed for 15-20 minutes (estimated because the clock is turned away so you cannot see it) and you are not asleep get up and do something relaxing in a different room (reading a magazine article, solitaire with a deck of cards). Do this in the middle of the night as well if awake. Avoid doing work or getting on the computer. 5) Bedroom for sleep only. No watching TV or using electronics (computer, phone, tablet etc.) in bed. 6) Turn clock away so you cannot see it in bed. 7) Exercise regularly but try to avoid exercise within 4 hours of bedtime. Morning exercise is best. 8) Avoid caffeine in the afternoon. Considering tapering down on caffeine by decreasing by one beverage with caffeine every 3 days until off. 9) Avoid smoking near bedtime 10) Avoid alcohol before bed. If you consume one alcoholic beverage allow 3 hours between that drink and bedtime. If you consume two alcoholic beverages allow 5 hours Between those drinks and bedtime. Alcohol may lead to waking at night. 11) Avoid napping except for driving safety. If you feel to sleepy to drive do not drive. If you get sleepy while driving bone char puller ,turn the car off and nap. You may resume driving once you feel alert. 12) Read No More Sleepless Nights by Mack Heaton PhD. 13) There are some on-line resources that do require a fee that can be of help. Two credible websites are as follows: http://www.Sendmail https://www.sleepio.com An star used by the CO is as follows: [employer] To Door Selling Dist[employer] documented in this encounter Progress Notes * Asha Morataya MD - 04/19/2022 11:00 AM EDT Sleep Medicine Follow-Up Note Chief Complaint: TITO follow up HPI: Ms. Alize Gramajo is a 61 y.o. female seen at for follow-up regarding obstructive sleep apnea, insomnia and RLS. Sleep Medicine Summary: ?? Sleep Medicine Consultation 02/18/10 EDS and snoring in the setting of CAD and HTN ?? PSG 03/05/10 @ 271 lbs AHI of 27, CMS AHI of 16, min saturation of 61%, significant desaturations in REM Mean saturation overnight asleep 90% with 75 minutes < 89% Wide complex ectopy noted Plan: CPAP titration ?? CPAP titration 03/18/10 @ 271 lbs CPAP 4-15 cm tested 15 cm mostly effective NREM and REM supine Plan: CPAP 15 cm ?? Visit 06/15/10 Changed from nm to FFM prior to visit Symptom improvement but not resolution (ongoing fatigue/sleepiness) on CPAP CC AHI of 2 ?? Overnight oximtery 06/24/10 per telephone note 08/03/10 Saturations well maintained No need for oxygen Plan: no change in treatment ?? Re-evaluation in [facility] 05/09/19 On CPAP still and has been on it for years but CPAP machine aging/malfunctioning and needs to be replaced. Feels she needs the CPAP - Believes she would struggle to sleep without CPAP. New CPAP and supplies Rx. Ongoing TITO symptoms (frequently tired, poor sleep some nights), weight change (271 lbs at dx PSG in 2009, down to 223 lbs at this visit), and history of COPD led to recommendation of inlab titration. Chronic insomnia treated with trazodone 100 mg - behavioral treatments reviewed including reductionin caffeine. As insomnia was improved and tiredness an issue a reduction in trazodone suggested. RLS (probable), not bothersome enough to treat. Iron indices recommended. ?? Letter 05/09/19 Normal H/H, Fe, TIBC and ferritin (55 ng/ml). Reduced iron saturation at 13%. Recommend: Fe sulfate 325 mg qod ?? Mandatory Split Night PSG @ 235 lbs 08/13/19 Pretreatment: AHI of 3, RDI of 7, mean of 93%, min of 91%, only observed in NREM sleep on side. Treatment: 8-13 cm tested. 8 cm mostly effective side and supine NREM and side REM but ineffective REM supine. Visual snoring at all pressures tested. Overall mean 94% with CPAP and minimum of 90%. Plan: Auto CPAP 9-14 cm with F20 via RR Visit 11/06/19 @ ? Weight Auto CPAP 9-14 cm with F20 medium FFM, fits well CC AIH of 1, VSI of 22, 0.4% LL Tiredness better with the new CPAP at the new settings No RLS, took iron transiently, now off iron Using trazodone 100 mg qhs for insomnia, excess TIB at 9 hours Plan: Auto 11-16 cm to address elevated VSI Behavioral treatments for insomina Decrease trazodone to 50 mg - not receptive to this recommendation Stay off of iron ?? Today: The patient returns for follow up in the sleep center. She is here because she would like to get a new CPAP. She has a [employer] machines that is about 3 years old. She is using [employer]. She has not been asking for supplies because they send her too much stuff. She reports she needs a new mask. The mask does not stay in place - it fit better when new. The airpressure feels fine. She reports she is sleeping too much because of a recent penumonia in March. SHe had antibiotics - doing better now. Follow up today with Luis E Narayan MD. Over the summer she was sleepingfine. During the day time she may nap. She has napping most every day as of late. She reports she cannot sleep without CPAP. She uses it even on her naps. Treatment: Auto CPAP Pressure: 11-16 cm Interface: FFM Fit: see above Chin strap: no Patient perceived outcome: see above Ongoing Snoring: sleeps alone Mouth Breathing: yes Dry Mouth in AM: sometimes Nocturnal Gasping: no ROS: ENT: Nasal Obstruction: yes - in fall and spring, CPAP does not seem to alter the congestion CONSTITUTIONAL: Weight: increased - 241 lbs today. 235 lbs at the time of her last sleep study. Sleep Pattern: Now: gets into bed 9-10 pm Prior to pneumonia: gets into bed 10-12 pm Lights out immediately Latency to sleep: variable, usually one hour, can be hours, shorter latency since the pneumonia, she lies in bed with CPAP on. Her anxiety may keep her from sleep - she describes mind racing. She may wake to urinate since the pneumonia Once asleep she usually stays asleep - since the pneumonia she may wake up and be up 3:30 -5:30 am then go back to bed to sleep Pre-pneumonia would wake 6-6:30 am Questionnaires: Patient-reported scores: [facility] 04/13/2022 [facility] 5 (Low Risk) Insomnia Severity Index 9 (Subthreshold insomnia) [facility] 05/07/2019 05/09/2019 04/13/2022 [facility] 7 (Low Risk) 10 (High Risk) 5 (Low Risk) Insomnia Severity Index 22 (Severe insomnia) - 9 (Subthreshold insomnia) Daytime Symptoms: Naps: if she gets up early she will nap in the morning. Before the pneumonia she napped less frequently and in the morning. Involuntary Dozing: may doze on her phone even before the pneumonia Driving: The patient does not report difficulty with sleepiness and driving. Close calls related to sleepiness: once during a prior penumonia 4 years ago. Accidents related to sleepiness: no Compliance Card Data: Date Range: 01/18/22 to 04/17/22 Setting: auto CPAP 11-16 cm, sometimes hitting maximum pressure allowed on detailed view. Residual AHI: 1 Vibratory Snore Index: 11 % Night in Large Leak: 2% Average usage days used: 8 hrs 54 min % Days used: 100% % Days with USage > 4 hrs: 99% Patient Active Problem List Diagnosis Code ??? Coronary artery disease involving cabazon coronary artery of cabazon heart with angina pectoris I25.119 ??? Altered mental status R41.82 ??? Abnormal MRI of head R93.0 ??? Mixed hyperlipidemia E78.2 ??? Essential hypertension I10 ??? Recurrent major depressive disorder, in remission F33.40 ??? Chronic bilateral low back pain without sciatica M54.50, G89.29 ??? TITO (obstructive sleep apnea) G47.33 ??? Type 2 diabetes mellitus without long-term current use of insulin E11.65 ??? Anxiety F41.9 ??? Hx of dysplasia of cervix, low grade (VALENTINO 1) N87.0 ??? H/O heart artery stent x4 LCX Z95.5 ??? Diabetic polyneuropathy associated with type 2 diabetes mellitus E11.42 ??? COPD J41.0 ??? Bipolar affective disorder in remission F31.70 ??? Left renal mass N28.89 ??? Iron deficiency E61.1 ??? Left atrial dilatation - severe I51.7 ??? Renal mass, left N28.89 ??? OAB (overactive bladder) N32.81 ??? Adrenal mass E27.8 ??? Malignant neoplasm of kidney C64.9 ??? Conjunctival tumor D49.89 ??? 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 Degenerative disc disease, lumbar M51.36 ??? BPPV (benign paroxysmal positional vertigo), right H81.11 ??? Edema of lower extremity R60.0 ??? Primary osteoarthritis of both knees M17.0 Current Outpatient Medications Medication Sig Dispense Refill ??? melatonin 10 mg Capsule Take 1 capsule by mouth nightly. ??? LORazepam (Ativan) 0.5 mg Tablet ??? busPIRone (Buspar) 30 mg Tablet Take 30 mg by mouth 2 times daily. ??? amoxicillin-clavulanate (Augmentin) 875-125 mg Tablet TAKE ONE TABLET BY MOUTH TWICE A DAY FOR 7 DAYS ??? losartan (Cozaar) 100 mg Tablet Take 1 tablet by mouth daily. 30 tablet 0 ??? clotrimazole (Mycelex) 10 mg Tanner Take 1 tablet by mouth 5 times daily. 25 Tanner 1 ??? nystatin (MYCOSTATIN) 100,000 unit/gram Powder Apply topically 4 times daily. 15 g 0 ??? albuteroL (Proventil, Ventolin) (2.5 mg/3 mL) (0.083 %) Solution for Nebulization Take 3 mLs bynebulization every 4 hours as needed for Wheezing. 90 mL 1 ??? Nebulizer Accessories Misc 1 each by Misc.(Non-Drug; Combo Route) route every 4 hours as needed(wheezing, cough, or shortness of breath). Supply per insurance preferred quantity 10 each 11 ??? miconazole (Micotin) 2 % Cream Place 1 applicator vaginally nightly. 45 g 0 ??? clopidogreL (Plavix) 75 mg Tablet Take [...] by mouth daily. 90 tablet 3 ??? pantoprazole EC (Protonix) 40 mg Tablet, Delayed Release (E.C.) Take 40 mg by mouth daily. ??? metFORMIN XR (Glucophage XR) 500 mg Tablet Sustained Release 24 hr Take 2 tablets by mouth 2 times daily (with meals). 360 tablet 3 ??? sucralfate (Carafate) 100 mg/mL Suspension Take 10 mLs by mouth 4 times daily. 420 mL 5 ??? albuteroL (Proventil HFA) 90 mcg/actuation HFA Aerosol Inhaler Inhale 2 puffs into the lungs every 4 hours as needed for wheeze. Use with spacer 1 each 11 ??? FreeStyle Lancets 28 gauge Misc 1 each by Other route 3 times daily. Indications: diabetes mellitus 100 each 11 ??? fluticasone propionate (Flonase) 50 mcg/actuation [place], Suspension 1 spray by Each Nare route 2 times daily. 16 g 11 ??? Alcohol Swabs Pads, Medicated Apply 1 each topically daily. 100 each 3 ??? simvastatin (Zocor) 10 mg Tablet Take 1 tablet by mouth daily. 90 tablet 3 ??? budesonide-formoteroL (Symbicort) 80-4.5 mcg/actuation HFA Aerosol Inhaler Inhale 2 puffs into the lungs 2 times daily. 3 each 3 ??? simethicone (Gas Relief 80, simethicone,) 80 mg Tablet, Chewable Take 1 tablet by mouth every 6hours as needed for Flatulence. 30 tablet 3 ??? traZODone (Desyrel) 100 mg Tablet Take 1 tablet by mouth nightly. 90 tablet 3 ??? lamoTRIgine (LaMICtal) 100 mg Tablet Take 1 tablet by mouth daily. 90 tablet 3 ??? aspirin EC 81 mg Tablet, Delayed Release (E.C.) Take 81 mg by mouth daily. ??? [START ON 04/20/2022] FreeStyle Lite Meter Kit ??? FreeStyle Sanjana 2 [place] Misc 1 each by Other route daily. Indications: diabetes mellitus (Patient not taking: Reported on 04/19/2022) 1 each 0 ??? FreeStyle Sanjana 2 Sensor Kit 1 each by Other route every 14 days. Indications: diabetes mellitus (Patient not taking: Reported on 04/19/2022) 2 kit 0 ??? nitroGLYcerin (Nitrostat) 0.4 mg Tablet, Sublingual Place 1 tablet under the tongue See Admin Instructions. (Patient not taking: Reported on 04/19/2022) 30 tablet 0 ??? polyethylene glycoL (Miralax) 17 gram Powder in Packet Take 17 g by mouth daily. (Patient not taking: Reported on 04/19/2022) 14 each 0 No current facility-administered medications for this visit. She takes trazodone 100 mg and melatonin 10 mg at bedtime for sleep She reports she never tried a lower dose of trazodone Lorezpam 0.5 mg 20 min before bed for sleep Soc Hx: Alcohol: no Caffeine: coffee 2 cups in am, once in a while in the afternoon PE: General: Female in nad Body mass index is 42.07 kg/m??. Vitals: 04/19/22 1052 BP: 119/49 Pulse: 78 SpO2: 99% Weight: 109.5 kg (241 lb 4.8 oz) Height: 161.3 cm (5' 3.5) Wt Readings from Last 5 Encounters: 04/19/22 109.5 kg (241 lb 4.8 oz) 04/05/22 108.9 kg (240 lb) 03/01/22 109.6 kg (241 lb 11.2 oz) 12/23/21 109.8 kg (242 lb) 08/20/21 110.7 kg (244 lb) Pul: Respirations: even and not labored Waking saturation at rest: see above Assessment: Ms. Alize Gramajo is a 61 y.o. female who is seen for follow-up of obstructive sleep apnea. Untreated obstructive sleep apnea presents a moderate risk of morbidity (ie hypertension etc).Compliance card indicates long periods of PAP usage (around 9 hrs per day), hitting the maximum pressure allowed of 16 cm at times, napping (16 days in March, 13 days in February), and an elevated VSI at 11 (down from 22 on last compliance card reading on auto 9-14 cm). Her long recording times on PAP (she never tries to sleep without PAP, uses it even on naps) may in part reflect her insomnia as she may lie awake for extended periods on PAP. She is amenable to CBTI for insomnia. Behavioral treatments for insomnia also reviewed today - see AVS. Given her recent pneumonia it is difficult to assess daytime symptoms. She appears to have been napping in February prior to the pneumonia suggesting it may be a long standing issue. We discussed increasing her auto PAP range but in light of the mask leak issues we decided to hold off and see if the VSI and sleepiness improve with new equipement including a new mask. She is well overdue for replacement of the mask. She would very much like to get a new CPAP since hers has been recalled. We discussed the recall. Discussed that insurance will typically allow a new CPAP every 5 years and hers is 3 years old. She asked me to prescribe a new CPAP today to see if her insurance will cover a new one. This is reasonable since the use of a recalled machine is contributing to some anxiety it would seem. We did not touch base on RLS today but she did not describe any RLS spontaneously either or when asked what was keeping her from sleep. Discussed that her PAP machine was recently recalled due to risk of potential breakdown of the soundproofing foam in the machine. We reviewed the potential risks that have been associated with this, including inhalation of foam particles and possible off-gassing of toxic fumes. She confirms that he/she is not using unapproved cleaning methods (such as ozone generating inventory checker). She is not aware of any black particles in the PAP circuit. Discussed that at this time, we believe that the benefit of CPAP likely outweighs the risk and that the plate glass installer will replace or repair the machine - shereports she cannot sleep without CPAP. She indicates understanding of the situation. She has already registered her PAP machine with [employer] for replacement. Advised to contact us if he/she develops airway irritation symptoms, headaches or other symptoms that they feel may be related to CPAP use. Recommendations: 1) CPAP auto 11-16 cm (no [...] hours before driving after taking sleep aides. The patient indicates understanding of these issues and agrees with the plan. Total time of visit, 40 minutes, including face to face counseling, chart review and documentation. Established patient: 54540: ___Total time including face to face, chart review and documentation of 20-29 min OR ___Low level of medical decision making (ie 1 stable (= at goal) chronic illnesses and low risk of morbidity) 39902: ___Total time including face to face, chart review and documentation of 30-39 min OR ___Moderate level of medical decision making (ie 1 chr illness with exac, progression or side effects of treatment or 2+ stable chronic illnesses and moderate risk of morbidity) 11043: _X__Total time including face to face, chart review and documentation of 40-54 min OR ___High level of medical decision making (ie 1 chr illness with severe exac, progression or side effects or 1 illness posing a threat to life or function and high risk of morbidity) ASHA MORATAYA MD documented in this encounter Plan of Treatment Upcoming Encounters Date Type Department Care Team (Late st Contact Info) Description 03/20/2024 9:00 AM EDT TH Visit (TeleHealth) Sleep Center at [facility] [address] [place] [address] Denisse Hardwick, [facility] 03/20/2024 2:00 PM EDT Clinical Support Family Medicine at [facility] [address] [place] [address] Julia Low [facility] 05/01/2024 11:20 AM EDT Appointment Mammography/DXA at [place] [phone] Rodney Padilla MD [address] [place] [address] 05/01/2024 1:45 PM EDT Office Visit Ophthalmology at [address] Juanpablo Hernandez MD [facility] [address] 01/30/2025 1:30 PM EDT Appointment Hematology and Oncology at [place] [address] 01/30/2025 3:[address] [place] [address] Arturo Cordero MD [facility] [address] [place] [address] 01/30/2025 4:15 PM EDT Office Visit Hematology and Oncology at [place] [address] Arturo Cordero MD [facility] [address] [place] [address] Scheduled Referrals Name Type Priority Associated Diagnoses Order Schedule Referral to Behavioral Health Outpatient Referral Routine Chronic insomnia Ordered: 04/19/2022 documented as of this encounter Visit Diagnoses Diagnosis Chronic insomnia Insomnia, unspecified TITO (obstructive sleep apnea) Obstructive sleep apnea (adult) (pediatric) documented in this encounter Care Teams Train Starter Relationship Specialty Start Date End Date Luis E Narayan MD [facility] [place] [address] PCP - General Family Medicine 01/20/22 07/17/22 documented as of this encounter
--- OUTSIDE RECORDS SUMMARY | 2024-03-04 21:21 | XMS_ITS | Encounter Summary ---
Author Organization Formerly [facility] [place] [address] Care Team Providers Care Electric Organ Inspector And Repairer Name Role Phone Luis E Narayan MD Primary Care Provider Reason for Visit * Reason Comments Follow-up Encounter Details Date Type Department Care Team (Late st Contact Info) Description 06/23/2022 2:45 PM EST Office Visit Hematology [place] [address] Arturo Cordero MD [facility] [place] [address] Leandra Lopes APRN [facility] [place] [address] Malignant melanoma of conjunctiva, left (Primary Dx); Malignant neoplasm of left kidney Social History Tobacco Use Types Packs/Day Years [...] Sign Reading Time Taken Comments Blood Pressure 123/90 06/23/2022 2:44 PM EST Pulse 81 06/23/2022 2:44 PM EST Temperature 36.7 ??C (98.1 ??F) 06/23/2022 2:44 PM ES T Respiratory Rate 18 06/23/2022 2:44 PM EST Oxygen Saturation 97% 06/23/2022 2:44 PM EST Inhaled Oxygen Concentration - - Weight 110.9 kg (244 lb 7.8 oz) 06/23/2022 2:44 PM EST Height 161.3 cm (5' 3.5) 06/23/2022 2:44 PM EST Body Mass Index 42.62 06/23/2022 2:44 PM EST documented in this encounter Progress Notes * Mer Fabian MD - 06/23/2022 2:45 PM EST Images from the original note were not included. [facility] FOLLOW UP NOTE REFERING PHYSICIAN: Dr. Juanpablo Hernandez DIAGNOSIS: Left eye conjunctival melanoma PATH: L eye conjunctival melanoma, depth 0.6mm, mitosis 1/mm2, [...] management - fall 2018: saw a new correction lieutenant and was referred to Dr. 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 Medina - 03/31/2020: saw her correction lieutenant Dr. Hernandez and was noted to have [...] metastatic disease HPI: Alize Gramajo is a 61 y.o. female with past medical history of left-sided renal cell carcinoma s/ppartial nephrectomy, type II diabetes, coronary artery disease, hyperlipidemia, hypertension, depression/anxiety, and TITO, who is presented to the oncology clinic on 05/26/2020 to discuss evaluation/management for her conjunctival melanoma. INTERVAL HISTORY: Ms. Gramajo presents in surveillance of conjunctival melanoma with surveillance CT scan. She does havestand-alone US 3 month ago which did not show suspicious findings. There are not hospitalizations since last admission. She states that she is having abdominal distention over the last months and was found to have diverticulitis. She was treated with a cycle of antibiotic which helped. She does not have abdominal pain but continues with distension. She is waiting to see her GI. Meanwhile she was recommended to have a bland diet. She has also had viral respiratory infections and what appears to be COPD/asthma exacerbation requiring short courses of steroids. Some of these infections have complicated with pneumonias. She stills smokes about 20 cigarettes a day. She states that overall she is doing well. Her level of energy is stable. Her weight is stable at 244 pounds ans she has a good appetite. Denies constipation, and has some episodes of diarrhea. She denies SOB, chest pain, palpitations today. She is seeing Dr. Hernandez regularly for exam and assessment. She does occasionally still have blurryvision and eye discomfort to her L eye, but not acute changes. She is also being seen by dermatology last visit on Feb 2022. She denies any new masses or lesions of concern. REVIEW OF SYSTEMS: Constitutional: No fever, no fatigue, occasional dizziness. No headache. Eyes: Negative ENT: No hearing change Cardiovascular: Negative Respiratory: Negative Gastrointestinal: Bloating, GERD symptoms, lack of appetite Genitourinary: Negative Musculoskeletal: No new joint pain, noted chronic lower back pain Skin: Bilateral lower extremity edema is stable Neurological: No focal weakness. Has chronic balance issues, memory issues and speech dysfunction for the past 1-1.5 years. Psychiatric: stable mood PAST MEDICAL HISTORY: Past Medical History: Diagnosis Date ??? Allergy ??? Antiplatelet or antithrombotic long-term use aspirin, plavix ??? Arthritis ??? Asthma uses inhalerswith good effect ??? Atherosclerosis of [place] coronary artery of [place] heart with angina pectoris 10/09/2007 History of angina status post myocardial infarction October 2007 with stenting x4 ??? CAD (coronary artery disease) October 12, 2007 ??? COPD (chronic obstructive pulmonary disease) ??? CPAP (continuous positive airway pressure) dependence ??? Depression ??? Diabetes this week around 120 ??? Diabetes mellitus borderline ??? Dry mouth ??? Heart valve disease Mumur ??? High blood pressure controlled with medication ??? Hypercholesterolemia ??? Hypertension ??? Malignant neoplasm of kidney 01/13/2020 ??? Mental health problem Depression, anxiety ??? Mental status change ??? Motion sickness sometimes- boating ??? Myocardial infarction years ago, transferred to for stents ??? Obesity ??? Obstructive sleep apnea ??? TITO (obstructive sleep apnea) ??? Polyneuropathy ??? Post-operative nausea and vomiting I think it's from the pain medication Past Surgical History: Procedure Laterality Date ??? SECTION ??? CORONARY ANGIOPLASTY WITH STENT PLACEMENT Placed at ??? 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 KNEE SURGERY ??? LASER SURGERY ??? PRO DESTR CORNEAL LESN,CRYO,PHOTO,THERM Left 05/14/2020 DESTRUCTION OF LESION OF CORNEA BY CRYOTHERAPHY (WRVU 3.47) performed by Juanpablo Hernandez MD at [facility] ??? PRO EXCIS CORNEA LESN Left 05/14/2020 EXCISION OF LESION, CORNEA, EXCEPT PTERYGIUM (WRVU 7.5) performed by Juanpablo Hernandez MD at [facility] ??? PRO LAP, PARTIAL NEPHRECTOMY Left 06/28/2019 LAPAROSCOPY, PARTIAL NEPHRECTOMY, ROBOTIC ASSIST (WRVU 27.41) performed by Avila Medina MD at [facility] MAIN OR ??? PRO PLACE AMNIOTIC MEMBRANE OCULAR SURFACE;SINGLE LAYER SUTURED Left 05/14/2020 PLACEMENT OF AMNIOTIC MEMBRANE ON THE OCULAR SURFACE,SINGLE LAYER,SUTURED (WRVU 2.5) performed by Juanpablo Hernandez MD at [facility] MEDS: Alcohol Swabs, LORazepam, Nebulizer Accessories, albuteroL, amLODIPine, amoxicillin-clavulanate, aspirin EC, blood-glucose meter, budesonide-formoteroL, busPIRone, clopidogreL, clotrimazole, flash glucose scanning reader, flash glucose sensor, fluticasone propionate, lamoTRIgine, lancets, loratadine, losartan, melatonin, metFORMIN XR, metoprolol succinate XL, miconazole, nitroGLYcerin, nystatin, pantoprazole EC, peppermint oiL, polyethylene glycoL, simethicone, simvastatin, sucralfate, and traZODone ALLERGY: Allergies Allergen Reactions ??? Codeine Phosphate Nausea And Vomiting ??? Erythromycin Base Nausea Only ??? Azithromycin ??? Ibuprofen Stomach upset ??? Lisinopril cough ??? Nsaids (Non-Steroidal Anti-Inflammatory Drug) Nausea And Vomiting FAMILY HX: Family History Problem Relation Age of Onset ??? Uterine Cancer Mother 76 hysterectomy age 76 ??? Heart Disease Father ??? Kidney Cancer Maternal Grandmother 56 ??? Bladder Cancer Maternal Grandmother 56 ??? Breast Cancer Maternal Aunt ??? Kidney Cancer Maternal Aunt ??? Medical History Unknown Other ??? Cancer Maternal Half-Brother kidney vs pancreatic primary ??? Brain Cancer Paternal Aunt ??? Cancer Paternal Aunt Unknown primary ??? Glaucoma Neg Hx ??? Macular Degeneration Neg Hx ??? Retinal Detachment Neg Hx SOCIAL HX: ETOH: Social Smoking: Current smoker, 1 ppd for 45 years Social History Socioeconomic History ??? Marital status: Spouse name: Not on file ??? Number of children: Not on file ??? Years of education: Not on file ??? Highest education level: Not on file Occupational History ??? Not on file Tobacco Use ??? Smoking status: Every Day Packs/day: 1.00 Years: 40.00 Pack years: 40.00 Types: Cigarettes ??? Smokeless tobacco: Never ??? Tobacco comments: Not today. Very anxious Vaping Use ??? Vaping Use: Never used Substance and Sexual Activity ??? Alcohol use: No ??? Drug use: No ??? Sexual activity: Not on file Other Topics Concern ??? Not on file Social History Narrative legally from spouse 2012. 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 in good mood and spirits Patient Vitals for the past 24 hrs: Temp Pulse Resp BP SpO2 06/23/22 1444 36.7 ??C (98.1 ??F) 81 18 123/90 97 % Eyes: Not icteric, No obvious injection or discharge to bilateral eyes. No visible lesion. Oral: Not examined Neck: Supple. No lymphadenopathy. Lungs: Bilaterally clear to auscultation, No wheezing, No crackles Heart: Regular rate and rhythm. Abdomen: Soft, no tenderness, no mass, normal active bowel sounds. Extremities: Trace lower extremity edema Skin: No rash Neuro: No focal weakness LABS: CBC unremarkable CMP unremarkable except glucose 274 (after breakfast) LDH 219 04/12/2022 9.2 IMAGING STUDIES: CT Chest Abdomen Pelvis 06/23/2022: IMPRESSION 1. Fatty liver changes. 2. No findings [...] evidence of intracranial metastasis. ASSESSMENT AND PLAN: 59y/o woman with history of RCC s/p left nephrectomy presenting for evaluation of Left eye conjunctival melanoma s/p resection without evidence of distant metastases. NF1 mutation, no BRAF, no CKIT Mitomycin-C eyedrop, will complete on 09/18/2020 according to the patient. Active surveillance with negative staging CT scan for suspicious findings. Ms. Gramajo presents for annual surveillance. She remains clinically stable, without new lesions or constitutional symptoms. She has chronic issues related to asthma and diverticulitis. Her staging imaging including US of soft tissue obtained [address] C/A/P obtained today did not reveal active disease. She completes 1 year of treatment with Mitomycin-C eyedrops. She continues to see Dr. Hernandez (correction lieutenant), dermatology and PCP on regular basis. Surveillance schedule: 1) Alternating ultrasounds and scans (either CT or PET CT scan) every 3 months for at least the first 2 years. Initial diagnosis on May 2020. - After 2 years, scan intervals will be spread out as determined by the oncologist until at least the 5 year stephanie. We discussed this with her, and we will obtain a CT scan in 6 months, afterwards we reconsider scans likely every year. - Blood work to check blood counts, electrolytes, kidney function, liver function and sometimes thyroid function will occur with scans. - An appointment can be made at any time between scheduled appointments for any new concerns or symptoms. 2) Dermatology follow up for full skin exams should occur at least annually, or as recommended by your loan documentation specialist. Last visit in Feb 2022. - Regular skin and lymph node self-examination should be performed. Please report any new lesions, lumps or bumps of concern to your loan documentation specialist or oncology team. 3) PCP for other cancer screenings: Seen regularly by your primary care provider for preventative health screening, including cancer screening (colonoscopy about 2 years ago s/p resection of polyps, mammograms etc.) - Encourage to quit smoking. - Next appointment in 07/07/2022 to discuss about her GI symptoms. CT abd today without any evidence of disease. PLAN: 1. RTC in 6 months for symptoms check, labs and staging CT scan C/A/P. The pt was in agreement with the plan outlined above and was instructed to call with any new symptoms or concerns. Mer Mayen M.D. Fellow, Hematology and Medical Oncology ATTENDING NOTE: Clinically she is doing really well. Today's restaging CT scan result is encouraging. We discussed the interval of next CT scan she prefers to have it done in 6-month instead of 1 year. The importance of continuous follow-up with ophthalmology team was reviewed with her. After discussion we decided to bring her back in 6-month with restaging CT scan. I have seen and examined the patient by myself with Dr. Mayen and agree with the above plans described. Arturo Cordero MD documented in this encounter Plan of Treatment Upcoming Encounters Date Type Department Care Team (Late st Contact Info) Description 03/20/2024 9:00 AM EDT TH Visit (TeleHealth) Sleep Center [facility] [facility] [address] [place] [phone] Denisse Hardwick, [facility] 03/20/2024 2:00 PM EDT Clinical Support Family Medicine [facility] [facility] [address] [place] [address] Julia Low, [facility] 05/01/2024 11:20 AM EDT Appointment Mammography/[place] [phone] Rodney Padilla MD [address] [place], [place] [id number] 05/01/2024 1:45 PM EDT Office [place] [address] Juanpablo Hernandez MD [facility] [address] 01/30/2025 1:30 PM EDT Appointment Hematology [place] [address] 01/30/2025 3:[address] Scan at [place] [phone] Arturo Cordero MD [facility] [place] [address] 01/30/2025 4:15 PM EDT Office Visit Hematology and Oncology at [place] [phone] Arturo Cordero MD [facility] [place] [address] documented as of this encounter Results * Lactate Dehydrogenase (12/29/2022 10:00 AM EDT) [facility] Lactate Dehydrogenase 175 110 - 220 unit/L [facility] Blood 12/29/2022 10:0 0 AM EDT 12/29/2022 10:13 AM EDT Narrative Resulting Agency Comment Spec In Lab Arturo Cordero MD CHEMISTRY ORDERABLES [facility] [place] [address] * (ABNORMAL) Comprehensive metabolic panel (non-fasting) (12/29/2022 10:00 AM EDT) Pathologist [facility] Glucose 259(H) 65 - 199 mg/dL [facility] Comment:Diabetes: >=200 mg/d L plus symptoms Blood Urea Nitrogen 17 8 - 18 mg/dL [facility] Creatinine 0.84 0.70 - 1.20 mg/dL [facility] Sodium 140 135 - 145 mmol/L [facility] Potassium 4.5 3.5 - 5.0 mmol/L [facility] Comment: Please note: ??Patients with WBC >100,000 may have falsely elevated Potassium levels. ??For accurate Potassium quantification in these patients send serum separator tube (gold top) for subsequent determinations. ??Contact the Clinical Chemistry Laboratory if there are any questions. Chloride 104 98 - 107 mmol/L [facility] Carbon Dioxide 23 22 - 31 mmol/L [facility] Anion Gap 13 5 - 15 mmol/L [facility] Calcium 9.5 8.5 - 10.5 mg/dL [facility] Protein, Total 6.9 6.1 - 8.0 g/dL [facility] Albumin 4.1 3.2 - 5.2 g/dL [facility] Aspartate Aminotransferase 19 0 - 30 unit/L [facility] Alanine Aminotransferase 24 0 - 30 unit/L [facility] Alkaline Phosphatase 103 35 - 105 unit/L [facility] Bilirubin, Total 0.3 0.2 - 1.3 mg/dL [facility] Est Glomerular Filtration Rate 78 >=60 mL/min/1. 73 m?? [facility] Comment: This patient's estimated GFR was [...] In Lab Arturo Cordero MD CHEMISTRY ORDERABLES [facility] [place] [address] documented in this encounter Visit Diagnoses Diagnosis Malignant melanoma of conjunctiva, left- Primary Malignant neoplasm of left kidney documented in this encounter Care Teams Electric Organ Inspector And Repairer Relationship Specialty Start Date End Date Luis E Narayan MD [facility] [address] [facility] [address] PCP - General Family Medicine 01/20/22 07/17/22 documented as of this encounter
--- OUTSIDE RECORDS SUMMARY | 2024-03-04 21:21 | XMS_ITS | Encounter Summary ---
[place] [address] Care Team Providers Care Medical Pathologist Name Role Phone Luis E Narayan MD Primary Care Provider [phone]- [phone] Reason for Referral * Diagnostic Test (Routine) - Closed Specialty Diagnoses / Procedures Referred By Gonzalez kumari Referred To Contact Radiology Diagnoses Dyspepsia Nausea without vomiting Procedures NM Gastric Emptying Scan Alejandra Pop APRN [address] [place] [address] [place] [address] Referral ID Status Reason Start Date Expiration Date V isits Requested Visits Authorized [id number] Closed Specialty Service Requested 06/17/2022 12/17/2023 1 1 Encounter Details Date Type Department Care Team (Late st Contact Info) Description 06/17/2022 Orders [place] [address] Alejandra Pop APRN [address] [place] [address] Dyspepsia; Nausea without vomiting Social History Tobacco Use Types Packs/Day Years [...] Center at [facility] [address] [place] [phone] Denisse Hardwick, [facility] 03/20/2024 2:00 PM EDT Clinical Support Family Medicine at [facility] [address] [place] [phone] Julia Low [facility] 05/01/2024 11:20 AM EDT Appointment Mammography/[place] [address] Rodney Padilla MD [address] [place] [address] 05/01/2024 1:45 PM EDT Office [place] [address] Juanpablo Hernandez MD [facility] [place] [address] 01/30/2025 1:30 PM EDT Appointment Hematology [place] [address] 01/30/2025 3:[address] [place] [address] Arturo Cordero MD [facility] DR HEMATOLOG[place] [address] 01/30/2025 4:15 PM EDT Office Visit [place]ology [place] [address] Arturo Cordero MD [facility] DR HEMAT[place] [address] documented as of this encounter Results * NM Gastric Emptying [...] who have questions please contact the health floor care technician that requested your imaging first. ? Narrative [...] patients who have questions please contactthe health floor care technician that requested your imaging first. Alejandra Pop SCRATCH POLISHER IMG NM ORDERABLE S documented in this encounter Visit Diagnoses Diagnosis Dyspepsia Dyspepsia and other specified disorders of function of stomach Nausea without vomiting Dyspepsia Dyspepsia and other specified disorders of function of stomach Nausea without vomiting documented in this encounter Care Teams Medical Pathologist Relationship Specialty Start Date End Date Luis E Narayan MD [facility] DR [facility] [address] PCP - General Family Medicine 01/20/22 07/17/22 documented as of this encounter
--- OUTSIDE RECORDS SUMMARY | 2024-03-04 21:21 | XMS_ITS | Encounter Summary ---
Author Organization [facility] Address [facility] [place] [address] Care Team Providers Care Mixer Dry Food Products Name Role Phone Luis E Narayan MD Primary Care Provider [phone]- [phone] Reason for Visit * Reason Onset Date Comments Medication Refill 06/19/2022 Encounter Details Date Type Department Care Team (Late st Contact Info) Description 06/19/2022 Refill Family Medicine at [facility] [address] [place] [address] Tamera Khan, KNIT GOODS WASHER [facility] [address] [place] [address] Bloating Social History Tobacco Use Types Packs/Day Years [...] Center at [facility] [address] [place] [phone] Denisse Hardwick [facility] 03/20/2024 2:00 PM EDT Clinical Support Family Medicine at [facility] [address] [place] [phone] Julia Low [facility] 05/01/2024 11:20 AM EDT Appointment Mammography/[place] [phone] Rodney Padilla MD [address] [place] [address] 05/01/2024 1:45 PM EDT Office Visit Ophthalmology at [place] [address] Juanpablo Hernandez MD [facility] [place] [address] 01/30/2025 1:30 PM EDT Appointment Hematology and Oncology at [place] [address] 01/30/2025 3:[address] Scan [place] [address] Arturo Cordero MD [facility] DR HEMATOLOGY [place] [address] 01/30/2025 4:15 PM EDT Office Visit Hematology and Oncology at [place] [address] Arturo Cordero MD [facility] DR HEMATOLOGY [place] [address] documented as of this encounter Visit Diagnoses Diagnosis Bloating Flatulence, eructation, and gas pain documented in this encounter Care Teams Mixer Dry Food Products Relationship Specialty Start Date End Date Luis E Narayan MD [facility] [address] [place] [address] PCP - General Family Medicine 01/20/22 07/17/22 documented as of this encounter
--- OUTSIDE RECORDS SUMMARY | 2024-03-04 21:21 | XMS_ITS | Encounter Summary ---
Author Organization [facility] Address [facility] [place] [address] Care Team Providers Care Blueprinting And Photocopy Supervisor Name Role Phone Luis E Narayan MD Primary Care Provider [phone]- [phone] Encounter Details Date Type Department Care Team (Latest Contact Info) Description 06/07/2022 Travel Social History Tobacco Use Types Packs/Day [...] (TeleHealth) Sleep Center at [facility] [address] [place] [phone] Denisse Hardwick, [facility] 03/20/2024 2:00 PM EDT Clinical Support Family Medicine at [facility] [address] [place] [phone] Julia Low, [facility] 05/01/2024 11:20 AM EDT Appointment Mammography[place] [address] Rodney Padilla MD [address] [facility] [place], [place] [id number] 05/01/2024 1:45 PM EDT Office [place] [address] Juanpablo Hernandez MD [facility] [place] [address] 01/30/2025 1:30 PM EDT Appointment Hematology [place] [address] 01/30/2025 3:[address] [place] [address] Arturo Cordero MD [facility] HEMATOLOGY [place] [address] 01/30/2025 4:15 PM EDT Office Visit Hematology [place] [address] Arturo Cordero MD [facility] HEMATOLOGY [place] [address] documented as of this encounter Visit Diagnoses Not on filedocumented in this encounter Care Teams Blueprinting And Photocopy Supervisor Relationship Specialty Start Date End Date Luis E Narayan MD [facility] [address] [place] [address] PCP - General Family Medicine 01/20/22 07/17/22 documented as of this encounter
--- OUTSIDE RECORDS SUMMARY | 2024-03-04 21:21 | XMS_ITS | Encounter Summary ---
Author Organization [facility] Address [facility] [place] [address] Care Team Providers Care Timber Selector Name Role Phone Luis E Narayan MD Primary Care Provider [phone] Reason for Visit * Reason Onset Date Comments Medication Refill 04/26/2022 Encounter Details Date Type Department Care Team (Late st Contact Info) Description 04/26/2022 Refill Family Medicine at [facility] [address] [place] [address] Luis E Narayan MD [facility] DR [address] [place] [address] Social History Tobacco Use Types Packs/Day Years [...] encounter Miscellaneous Notes * Telephone Encounter - Alejandra Posadas RN - 04/27/2022 9:52 AM EDT Prescription Refill Request Prescription(s) Requested: Requested Prescriptions Pending Prescriptions Disp Refills ??? sucralfate (Carafate) 100 mg/mL Suspension 420 mL 5 Sig: Take 10 mLs by mouth 4 times daily. Date of Encounter last in This Dept (If over a year and no apt scheduled send to secretaries to schedule): 04/19/22 Next Encounter in This Dept: Visit date not found Date of Last Refill (for each medication): 02/02/22 documented in this encounter Plan of Treatment Upcoming Encounters Date Type Department Care Team (Late st Contact Info) Description 03/20/2024 9:00 AM EDT TH Visit (TeleHealth) Sleep Center at [facility] [address] [place] [address] Denisse Hardwick, [facility] 03/20/2024 2:00 PM EDT Clinical Support Family Medicine at [facility] [address] [place] [phone] Julia Low [facility] 05/01/2024 11:20 AM EDT Appointment Mammography/[place] [address] Rodney Padilla MD [address] [place] [address] 05/01/2024 1:45 PM EDT Office Visit [place] [address] Juanpablo Hernandez MD [facility] [place] [address] 01/30/2025 1:30 PM EDT Appointment Hematology [place] [address] 01/30/2025 3:[address] Scan at [place] [phone] Arturo Cordero MD [facility] [place] [address] 01/30/2025 4:15 PM EDT Office Visit Hematology [place] [address] Arturo Cordero MD [facility] [place] [address] documented as of this encounter Visit Diagnoses Not on filedocumented in this encounter Care Teams Timber Selector Relationship Specialty Start Date End Date Luis E Narayan MD [facility] DR [address], [place] [phone] PCP - General Family Medicine 01/20/22 07/17/22 documented as of this encounter
--- OUTSIDE RECORDS SUMMARY | 2024-03-04 21:21 | XMS_ITS | Encounter Summary ---
[facility] [place] [address] Care Team Providers Care Education Specialist Name Role Phone Luis E Narayan MD Primary Care Provider [phone] Reason for Visit * Reason Onset Date Comments Results 05/23/2022 Encounter Details Date Type Department Care Team (Late st Contact Info) Description 05/23/2022 Telephone Hematology [place] [address] Tito Matta V [facility] Hematology/[place] [address] Results Social History Tobacco Use Types Packs/Day Years [...] encounter Miscellaneous Notes * Telephone Encounter - Gudelia Mattas Selvin, [facility] - 05/23/2022 11:33 AM EST This test result was discussed with the patient by phone. A copy of the test results have been scanned in the medical record and sent to Alize. A summary of the results is provided below. Please beadvised that [place] law requires that all health care workers respect the confidentiality ofthis information and not pass it along to other health care providers, insurance companies, or individuals without the written permission of the patient. The Familial Cancer Program welcomes any questions about these matters. Our phone number is: [phone]. On 05/13/2022 Alize was seen for genetic counseling and subsequently underwent genetic testing for a hereditary predisposition to Renal/Ur. Following are the results of this test. Result: Garmor's Renal/Urinary Tract Cancers Panel showed no mutation was detected. This means that Alize does not carry a mutation in the genes detectable by this test. The following 25 genes were evaluated for sequence changes and exonic deletions/duplications: BAP1, CDC73, CDKN1C, DICER1, DIS3L2, EPCAM (Deletion/duplication testing only), FH, FLCN, GPC3, MET, MLH1, MSH2, MSH6, PMS2, PTEN, REST, SDHB, SDHC, SMARCA4, SMARCB1, TP53, TSC1, TSC2, VHL, and WT1. The previously identified somatic VHL mutation, specifically c.344A>G (p.H115R), was not identified on germline testing. Alize had previously opted for reflex to Garmor's Multi-Cancer Panel andthis additional testing is still processing. Interpretation: This test did not identify an underlying genetic cause for the personal or family history of renal cancer. Possible explanations for this negative test result include: ?? Alize's renal cancer and the renal cancer in her family may be due to non genetic, environmental causes. ?? There could be a mutation in Alize's family that Alize did not inherit. ?? There could be mutations in other cancer genes not included in this test, or in genes yet to be discovered. ?? Additional testing for Alize was ordered and is still pending. ?? There is a very small chance that a pathogenic variant/mutation could be missed due to limitations in the testing. Alize will be contacted when her remaining genetic test results are available for review. This result was also discussed with Alize's daughter today per Alize's request. documented in this encounter Plan of Treatment Upcoming Encounters Date Type Department Care Team (Late st Contact Info) Description 03/20/2024 9:00 AM EDT TH Visit (TeleHealth) Sleep Center at [facility] [address] [place] [phone] Denisse Hardwick, [facility] 03/20/2024 2:00 PM EDT Clinical Support Family Medicine at [facility] [address] [place] [phone] Julia Low [facility] 05/01/2024 11:20 AM EDT Appointment Mammography/[place] [phone] Rodney Padilla MD [address] [place] [address] 05/01/2024 1:45 PM EDT Office Visit Ophthalmology at [place] [phone] Juanpablo Hernandez MD [facility] [place] [address] 01/30/2025 1:30 PM EDT Appointment Hematology [place] [address] 01/30/2025 3:[address] Scan at [place] [phone] Arturo Cordero MD [facility] [address] [place] [address] 01/30/2025 4:15 PM EDT Office Visit Hematology and Oncology at [place] [phone] Arturo Cordero MD [facility] DR [place] [address] documented as of this encounter Visit Diagnoses Not on filedocumented in this encounter Care Teams Education Specialist Relationship Specialty Start Date End Date Luis E Narayan MD [facility] [place] [address] PCP - General Family Medicine 01/20/22 07/17/22 documented as of this encounter
--- OUTSIDE RECORDS SUMMARY | 2024-03-04 21:21 | XMS_ITS | Encounter Summary ---
Author Organization [facility] [place] [address] Care Team Providers Care Parts Inspector Name Role Phone Luis E Narayan MD Primary Care Provider Reason for Referral * Diagnostic Test (Routine) - Closed Specialty Diagnoses / Procedures Referred By Contac t Referred To Contact Radiology Diagnoses Malignant melanoma of conjunctiva, left Procedures CT Chest Abdomen Pelvis w Contrast (Generic) Leandra Lopes APRN [facility] [address] [place] [address] [facility] [place] [address] Referral ID Status Reason Start Date Expiration Date V isits Requested Visits Authorized [id number] Closed Specialty Service Requested 12/24/2021 06/25/2023 1 1 * Diagnostic Test (Routine) - Closed Specialty Diagnoses / Procedures Referred By Contac t Referred To Contact Radiology Diagnoses Malignant melanoma of conjunctiva, left Procedures CT Neck Soft Tissue w Contrast (Generic) Leandra Lopes APRN [facility] [place] [address] [facility] [place] [address] Referral ID Status Reason Start Date Expiration Date V isits Requested Visits Authorized [id number] Closed Specialty Service Requested 12/24/2021 06/25/2023 1 1 Reason for Visit * Diagnostic Test (Routine) - Closed Specialty Diagnoses / Procedures Referred By Contchrissy t Referred To Contact Radiology Diagnoses Malignant melanoma of conjunctiva, left Procedures CT Chest Abdomen Pelvis w Contrast (Generic) Leandra Lopes APRN [facility] [address] [place] [address] [facility] [place] [address] Referral ID Status Reason Start Date Expiration Date V isits Requested Visits Authorized [id number] Closed Specialty Service Requested 12/24/2021 06/25/2023 1 1 Encounter Details Date Type Department Care Team (Late st Contact Info) Description 06/23/2022 11:14 AM EST - 06/23/2022 11:30 AM EST Hospital [place] [phone] Leandra Lopes APRN [facility] DR [place] [address] Malignant melanoma of conjunctiva, left Discharge Disposition: [...] Date End Date FreeStyle Lancets 28 gauge MiscIndications:diabet es mellitus 1 each by Other route 3 [...] mg by mouth daily. Alcohol Swabs Pads, MedicatedIndications:T ype 2 diabetes mellitus with hyperglycemia, without long-term current use of insulin Apply 1 each topically daily. 100 each 3 11/07/2022 11/02/2023 freestyle lite stripsIndications:type 2 diabetes mellitus 1 each by Other route 3 times daily. Use as instructed Indications: type 2 diabetes mellitus 300 each 3 06/24/2022 02/27/2023 budesonide-formoteroL (Symbicort) 80-4.5 mcg/actuation HFA Aerosol InhalerIndications:Sim ple chronic bronchitis Inhale 2 puffs into the lungs 2 times daily. 3 each 3 06/24/2022 08/29/2023 simvastatin (Zocor) 10 mg TabletIndications:Mixe d hyperlipidemia Take 1 tablet by mouth daily. 90 tablet 1 06/21/2022 12/16/2022 peppermint oiL 50 mg Capsule, Delayed Release(E.C.)Indicatio ns:Bloating Take 1 capsule by mouth daily. 90 capsule 3 06/16/2022 02/22/2023 sucralfate (Carafate) 100 mg/mL Suspension Take 10 mLs by mouth 4 times daily. 420 mL 5 06/16/2022 09/19/2022 simethicone (Gas Relief 80, simethicone,) 80 mg Tablet, ChewableIndications:Bl oating Take 1 tablet by mouth every 6 [...] applicator vaginally nightly. 45 g 04/21/2022 06/20/2023 nystatin (MYCOSTATIN) 100,000 unit/gram Powder Apply topically 4 times daily. 15 g 04/21/2022 07/11/2022 amoxicillin-clavulanat e (Augmentin) 875-125 mg Tablet TAKE ONE TABLET [...] 90 mL 1 04/12/2022 02/27/2024 Nebulizer Accessories MiscIndications:Simple chronic bronchitis 1 each by Misc.(Non-Drug; Combo [...] 3 03/29/2022 02/27/2023 amLODIPine (Norvasc) 5 mg TabletIndications:Esse ntial hypertension Take 1 tablet by mouth daily. 90 tablet 3 03/29/2022 03/21/2023 metFORMIN XR (Glucophage XR) 500 mg Tablet Sustained Release 24 hr Take 2 tablets by mouth 2 times daily (with meals). 360 tablet 3 02/23/2022 02/20/2023 albuteroL (Proventil HFA) 90 mcg/actuation HFA Aerosol InhalerIndications:Sim ple chronic bronchitis Inhale 2 puffs into the lungs every 4 hours as needed for wheeze. Use with spacer 1 each 12/10/2021 02/04/2023 FreeStyle Sanjana 2 [place] MiscIndications:diabet es mellitus 1 each by Other route daily. Indications: diabetes mellitus 1 each 10/26/2021 01/23/2023 FreeStyle Sanjana 2 Sensor KitIndications:diabete s mellitus 1 each by Other route every 14 days. Indications: diabetes mellitus 2 kit 10/26/2021 01/23/2023 fluticasone propionate (Flonase) 50 mcg/actuation [place], Suspension 1 spray by Each Nare route 2 times daily. 16 g 11 09/10/2021 09/25/2022 nitroGLYcerin (Nitrostat) 0.4 mg Tablet, Sublingual Place 1 tablet under the tongue See Admin Instructions. 30 tablet 07/05/2021 09/25/2022 budesonide-formoteroL (Symbicort) 80-4.5 mcg/actuation HFA Aerosol InhalerIndications:Sim ple chronic bronchitis Inhale 2 puffs into the lungs 2 times daily. 3 each 3 05/26/2021 06/24/2022 polyethylene glycoL (Miralax) 17 gram Powder in PacketIndications:Cons tipation, unspecified constipation type Take 17 g by mouth daily. 14 each 09/15/2020 09/19/2023 lamoTRIgine (LaMICtal) 100 mg TabletIndications:Bipo lar affective disorder in remission Take 1 tablet by mouth daily. 90 tablet 3 08/05/2019 06/20/2023 documented as of this encounter Plan of Treatment Upcoming Encounters Date Type Department Care Team (Late st Contact Info) Description 03/20/2024 9:00 AM EDT TH Visit (TeleHealth) Sleep Center [facility] [address] [place] [phone] Denisse Hardwick, [facility] 03/20/2024 2:00 PM EDT Clinical Support Family Medicine [facility] [address] [place] [phone] Julia Low, [facility] 05/01/2024 11:20 AM EDT Appointment Mammography/[place] [address] Rodney Padilla MD [address] [facility] [place] [address] 05/01/2024 1:45 PM EDT Office [place] [address] Juanpablo Hernandez MD [facility] [place] [address] 01/30/2025 1:30 PM EDT Appointment Hematology [place] [phone] [phone] 01/30/2025 3:[address] [place] [address] Arturo Cordero MD [facility] [address] [place] [address] 01/30/2025 4:15 PM EDT Office Visit Hematology [place] [address] Arturo Cordero MD [facility] [address] [place] [address] documented as of this encounter Procedures Procedure Name Priority Date/Time Associated Diagnosis Comments CT CHEST ABDOMEN PELVIS W CONTRAST (GENERIC) Routine 06/23/2022 1:55 PM EST Malignant melanoma of conjunctiva, left CT NECK SOFT TISSUE W CONTRAST Routine 06/23/2022 1:55 PM EST Malignant melanoma of conjunctiva, left documented in this encounter Results * CT Chest Abdomen Pelvis w Contrast (Generic) (06/23/2022 1:55 PM EST) Anatomical Region Laterality Modality Abdomen, Pelvis Computed Tomogra phy Impressions 06/23/2022 4:39 PM EST 1. ??Fatty liver changes. 2. ??No findings for metastatic disease in the chest abdomen or pelvis. 3. ??Status post left lower pole partial nephrectomy without evidence of local recurrence on this single phase examination. Thank you for letting us participate in the care of this patient. ??If you are a health care provider and have any questions regarding this report, please contact the number below. ??For patients who have questions please contact the health care management coordinator that requested your imaging first. ? Narrative 06/23/2022 4:39 PM EST EXAMINATION: CT CHEST ABDOMEN PELVIS W CONTRAST (GENERIC) CLINICAL HISTORY: Skin cancer, monitor Left eye conjunctiva melanoma high risk rule out distant mets. Last CT on 12/23/2020, please connect with CAP CT TECHNIQUE: Helical CT of the chest, abdomen, and pelvis was performed following the intravenous administration of contrast. 120 ml5 of Omnipaque 350. Oral contrast was administered. COMPARISON: ??CT CHEST ABDOMEN PELVIS W CONTRAST 12/23/2021 FINDINGS: Chest: Lungs and large airways: Normal. Pleura: No effusion. Heart/vasculature: Normal. Moderate atherosclerotic coronary artery calcification. Calcification of the posterior branch right pulmonary artery is stable and may represent sequela from prior thrombus. There is no additional central filling defects. Lymph nodes: No enlarged lymph nodes. Mediastinum and bess: Normal. Abdomen/pelvis: Liver: Normal size ??without lesions. There is decreased density, consistent with diffuse fatty infiltration. Liver measures 17.9 cm craniocaudally Bile ducts: Nondilated. Gallbladder: No calcified gallstones. Normal caliber wall. Pancreas: Normal attenuation without ductal dilatation. Spleen: Normal. Adrenals: Normal right adrenal left adrenal nodule stable. Kidneys: Stable.Left lower pole partial nephrectomy associated with linear perinephric opacities not significantly changed from the prior examination. Urinary Bladder: Underdistended Vasculature: No aneurysm. Lymph Nodes: ??No enlarged lymph nodes. Bowel: Nondilated, no wall thickening. Normal appendix Peritoneum and mesentery: No ascites, free air, or loculated fluid collection. No mesenteric inflammation. Scattered colonic diverticulosis. Abdominal wall: Right fat-containing direct inguinal hernia. Reproductive organs: Normal. Osseous structures: No suspicious lesions. Degenerative change particularly facet arthropathy lower lumbar spine greatest, on the left Procedure Note Yomi Douglas MD - 06/23/2022 EXAMINATION: CT CHEST ABDOMEN PELVIS W CONTRAST (GENERIC) CLINICAL HISTORY: Skin cancer, monitor Left eye conjunctiva melanoma high risk rule out distant mets. Last CTon 12/23/2020, please connect with CAP CT TECHNIQUE: Helical CT of the chest, abdomen, and pelvis was performedfollowing the intravenous administration of contrast. 120 ml5 of Omnipaque 350.Oral contrast was administered. COMPARISON: CT CHEST ABDOMEN PELVIS W CONTRAST 12/23/2021 FINDINGS: Chest: Lungs and large airways: Normal. Pleura: No effusion. Heart/vasculature: Normal. Moderate atherosclerotic coronary artery calcification. Calcification of the posterior branch right pulmonaryartery is stable and may represent sequela from prior thrombus. There is noadditional central filling defects. Lymph nodes: No enlarged lymph nodes. Mediastinum and bess: Normal. Abdomen/pelvis: Liver: Normal size without lesions. There is decreased density,consistent with diffuse fatty infiltration. Liver measures 17.9 cm craniocaudally Bile ducts: Nondilated. Gallbladder: No calcified gallstones. Normal caliber wall. Pancreas: Normal attenuation without ductal dilatation. Spleen: Normal. Adrenals: Normal right adrenal left adrenal nodule stable. Kidneys: Stable.Left lower pole partial nephrectomy associated withlinear perinephric opacities not significantly changed from the priorexamination. Urinary Bladder: Underdistended Vasculature: No aneurysm. Lymph Nodes: No enlarged lymph nodes. Bowel: Nondilated, no wall thickening. Normal appendix Peritoneum and mesentery: No ascites, free air, or loculated fluidcollection. No mesenteric inflammation. Scattered colonic diverticulosis. Abdominal wall: Right fat-containing direct inguinal hernia. Reproductive organs: Normal. Osseous structures: No suspicious lesions. Degenerative changeparticularly facet arthropathy lower lumbar spine greatest, on the left IMPRESSION 1. Fatty liver changes. 2. No findings for metastatic disease in the chest abdomen or pelvis. 3. Status post left lower pole partial nephrectomy without evidence oflocal recurrence on this single phase examination. Thank you for letting us participate in the care of this patient. If youare a health care provider and have any questions regarding this report,please contact the number below. For patients who have questions please contactthe health care management coordinator that requested your imaging first. Leandra Lopes APRN IMG CT ORDERABLES * CT Neck Soft Tissue w Contrast (Generic) (06/23/2022 1:55 PM EST) Anatomical Region Laterality Modality Neck, Head Computed Tomogra phy Impressions 06/24/2022 11:34 AM EST No metastatic disease in the neck. I have personally reviewed the image(s) and the resident's interpretation and agree with the findings, Chuy Delgado MD at 06/24/2022 11:34 AM Thank you for letting us participate in the care of this patient. ??If you are a health care provider and have any questions regarding this report, please contact the number below. ??For patients who have questions please contact the health care management coordinator that requested your imaging first. ? Narrative 06/24/2022 11:34 AM EST EXAMINATION: CT NECK SOFT TISSUE W CONTRAST (GENERIC) CLINICAL HISTORY: Melanoma, assess treatment response Left eye conjunctiva melanoma high risk rule out distant mets. Last CT on 12/23/2020, please connect with CAP CT TECHNIQUE: CT neck performed after the intravenous administration of contrast. . COMPARISON: CT neck 12/23/2021 FINDINGS: No neck masses or lymphadenopathy. The parotid and submandibular glands are normal. Aerodigestive tract is without masses. No masses are seen within the orbits. No aggressive osseous lesions. Included apical structures are normal. Paranasal sinuses and mastoid air cells are clear. Procedure Note Chuy Delgado MD - 06/24/2022 EXAMINATION: CT NECK SOFT TISSUE W CONTRAST (GENERIC) CLINICAL HISTORY: Melanoma, assess treatment response Left eye conjunctiva melanoma high risk rule out distant mets. Last CTon 12/23/2020, please connect with CAP CT TECHNIQUE: CT neck performed after the intravenous administration of contrast. . COMPARISON: CT neck 12/23/2021 FINDINGS: No neck masses or lymphadenopathy. The parotid and submandibular glandsare normal. Aerodigestive tract is without masses. No masses are seen withinthe orbits. No aggressive osseous lesions. Included apical structures arenormal. Paranasal sinuses and mastoid air cells are clear. IMPRESSION No metastatic disease in the neck. I have personally reviewed the image(s) and the resident's interpretationand agree with the findings, Chuy Delgado MD at 06/24/2022 11:34 AM Thank you for letting us participate in the care of this patient. If youare a health care provider and have any questions regarding this report,please contact the number below. For patients who have questions please contactthe health care management coordinator that requested your imaging first. Leandra Lopes APRN IMG CT ORDERABLES documented in this encounter Visit Diagnoses Diagnosis Malignant melanoma of conjunctiva, left documented in this encounter Administered Medications Inactive Administered Medications - up to 3 most recent administrations Medication Order MAR Action Action Date Dose Rate Site barium sulfate (Readi-Cat) 2.0 % (w/v) oral liquid 450-900 mL 450-900 mL, Oral, ONCE PRN, 1 dose, Starting on Carolee 06/23/22 at 1340, Until Carolee 06/23/22 at 1340, Per Protocol, Radiology Contrast, Routine Given 06/23/2022 1:40 PM EST 900 mLs iohexoL (Omnipaque) (350 mg/mL) solution 0-200 mL 0-200 mL, Intravenous, ONCE PRN, 1 dose, Starting on Carolee 06/23/22 at 1340, Until Carolee 06/23/22 at 1344, Per Protocol, Warning Vesicant/Irritant Medication , Radiology Contrast, Routine Given 06/23/2022 1:44 PM EST 120 mLs documented in this encounter Care Teams Parts Inspector Relationship Specialty Start Date End Date Luis E Narayan MD [facility] [address] [place] [address] PCP - General Family Medicine 01/20/22 07/17/22 documented as of this encounter
--- OUTSIDE RECORDS SUMMARY | 2024-03-04 21:21 | XMS_ITS | Encounter Summary ---
Author Organization [facility] Address [facility] [place] [address] Care Team Providers Care Licensed Practical Vocational Nurse Name Role Phone Luis E Narayan MD Primary Care Provider +1- [phone] Reason for Visit * Reason Onset Date Comments Medication Refill 04/21/2022 Encounter Details Date Type Department Care Team (Late st Contact Info) Description 04/21/2022 Refill Family Medicine at [facility] [address] [place] [address] Suzanne Martinez, KATHIA [facility] DR [address] [place] [address] Social History Tobacco Use Types Packs/Day Years [...] encounter Miscellaneous Notes * Telephone Encounter - Judie Barbosa CMA - 04/21/2022 10:49 AM EDT Prescription Refill Request Prescription(s) Requested: Requested Prescriptions Pending Prescriptions Disp Refills ??? nystatin (MYCOSTATIN) 100,000 unit/gram Powder 15 g 0 Sig: Apply topically 4 times daily. Date of Encounter last in This Dept (If over a year and no apt scheduled send to secretaries to schedule): 04/19/2022 juan Next Encounter in This Dept: Visit date not found Date of Last Refill (for each medication): 04/12/2022 Medication category req. lab studies documented in this encounter Plan of Treatment Upcoming Encounters Date Type Department Care Team (Late st Contact Info) Description 03/20/2024 9:00 AM EDT TH Visit (TeleHealth) Sleep Center at [facility] [address] [place] [phone] Denisse Hardwick, [facility] 03/20/2024 2:00 PM EDT Clinical Support Family Medicine at [facility] [address] [place] [address] Julia Low, [facility] 05/01/2024 11:20 AM EDT Appointment Mammography/[place] [address] Rodney Padilla MD [address] [place] [address] 05/01/2024 1:45 PM EDT Office Visit Ophthalmology at [place] [phone] Juanpablo Hernandez MD [facility] [place] [address] 01/30/2025 1:30 PM EDT Appointment Hematology and Oncology at [place] [phone] 01/30/2025 3:[address] Scan at [place] [phone] Arturo Cordero MD [facility] [place] [address] 01/30/2025 4:15 PM EDT Office Visit Hematology [place] [address] Arturo Codrero MD [facility] [place]AT[place] [address] documented as of this encounter Visit Diagnoses Not on filedocumented in this encounter Care Teams Licensed Practical Vocational Nurse Relationship Specialty Start Date End Date Luis E Narayan MD NPI: [id number] [place] [address] [address] [place] [address] PCP - General Family Medicine 01/20/22 07/17/22 documented as of this encounter
--- OUTSIDE RECORDS SUMMARY | 2024-03-04 21:21 | XMS_ITS | Encounter Summary ---
Author Organization [facility] Address [facility] [place] [address] Care Team Providers Care Pot Feeder Name Role Phone Luis E Narayan MD Primary Care Provider [phone] Encounter Details Date Type Department Care Team (Latest Contact Info) Description 05/12/2022 Travel Social History Tobacco Use Types Packs/Day [...] Center at [facility] [address] [place] [phone] Denisse Hardwick, [facility] 03/20/2024 2:00 PM EDT Clinical Support Family Medicine at [facility] [address] [place] [address] Julia Low, [facility] 05/01/2024 11:20 AM EDT Appointment Mammography/[place] [address] Rodney Padilla MD [address] [facility] [place], [place] [id number] 05/01/2024 1:45 PM EDT Office [place] [address] Juanpablo Hernandez MD [facility] [place] [address] 01/30/2025 1:30 PM EDT Appointment Hematology [place] [address] 01/30/2025 3:[address] [place] [address] Arturo Cordero MD [facility] HEMATOLOGY [place] [address] 01/30/2025 4:15 PM EDT Office Visit Hematology [place] [address] Arturo Cordero MD [facility] HEMATOLOGY [place] [address] documented as of this encounter Visit Diagnoses Not on filedocumented in this encounter Care Teams Pot Feeder Relationship Specialty Start Date End Date Luis E Narayan MD [facility] [address] [place] [address] PCP - General Family Medicine 01/20/22 07/17/22 documented as of this encounter
--- OUTSIDE RECORDS SUMMARY | 2024-03-04 21:21 | XMS_ITS | Encounter Summary ---
Author Organization [facility] [place] [address] Care Team Providers Care Lace Mender Name Role Phone Luis E Narayan MD Primary Care Provider [phone]- [phone] Encounter Details Date Type Department Care Team (Late st Contact Info) Description 05/13/2022 Orders [place] [address] Alejandra Pop, CLINICAL VETERINARIAN [address] [place] [address] Social History Tobacco Use Types Packs/Day Years [...] TH Visit (TeleHealth) Sleep Center at [facility] [address] [place] [address] Denisse Hardwick, [facility] 03/20/2024 2:00 PM EDT Clinical Support Family Medicine at [facility] [address] [place] [phone] Julia Low, [facility] 05/01/2024 11:20 AM EDT Appointment Mammography/[place] [address] Rodney Padilla MD [address] [facility] [place], [place] [phone] 05/01/2024 1:45 PM EDT Office [place] [address] Juanpablo Hernandez MD [facility] [place] [place] [address] 01/30/2025 1:30 PM EDT Appointment Hematology [place] [address] 01/30/2025 3:[address] Scan at [place] [phone] Arturo Cordero MD [facility] [place] [address] 01/30/2025 4:15 PM EDT Office Visit Hematology and Oncology at [place] [phone] Arturo Cordero MD [facility] DR [place] [address] documented as of this encounter Visit Diagnoses Not on filedocumented in this encounter Care Teams Lace Mender Relationship Specialty Start Date End Date Luis E Narayan MD [facility] DR [address] [place] [address] PCP - General Family Medicine 01/20/22 07/17/22 documented as of this encounter
--- OUTSIDE RECORDS SUMMARY | 2024-03-04 21:21 | XMS_ITS | Encounter Summary ---
Author Organization [facility] [place] [address] Care Team Providers Care Cream Hauler Name Role Phone Luis E Narayan MD Primary Care Provider +1- [phone] Encounter Details Date Type Department Care Team (Latest Contact Info) Description 05/13/2022 12:52 PM EDT - 05/13/2022 11:59 PM EDT Hospital Encounter Hematology [place] [address] Ocular melanoma, left; Renal cell cancer, left; Malignant melanoma of conjunctiva, left Discharge Disposition: [...] Sig Dispensed Refills Start Date End Date melatonin 10 mg Capsule Take 1 capsule [...] topically daily. 100 each 3 11/07/2022 11/02/2023 sucralfate (Carafate) 100 mg/mL Suspension Take 10 mLs by mouth 4 times daily. 420 mL 5 04/28/2022 06/16/2022 miconazole (Micotin) 2 % Cream Place 1 applicator vaginally nightly. 45 g 04/21/2022 06/20/2023 nystatin (MYCOSTATIN) 100,000 unit/gram Powder Apply topically 4 times daily. 15 g 04/21/2022 07/11/2022 amoxicillin-clavulanat e (Augmentin) 875-125 mg Tablet TAKE ONE TABLET BY MOUTH TWICE A DAY FOR 7 DAYS 04/14/2022 01/23/2023 losartan (Cozaar) 100 mg Tablet Take 1 tablet by mouth daily. 30 tablet 04/18/2022 05/17/2022 clotrimazole (Mycelex) 10 mg Tanner Take 1 [...] mouth daily. 90 tablet 3 03/29/2022 03/21/2023 pantoprazole EC (Protonix) 40 mg Tablet, Delayed Release (E.C.) Take 40 mg by mouth daily. 06/16/2022 metFORMIN XR (Glucophage XR) 500 mg Tablet Sustained Release 24 hr Take 2 tablets by mouth 2 times daily (with meals). 360 tablet 3 02/23/2022 02/20/2023 albuteroL (Proventil HFA) 90 mcg/actuation HFA Aerosol InhalerIndications:Sim ple chronic bronchitis Inhale 2 puffs into the lungs every 4 hours as needed for wheeze. Use with spacer 1 each 11 12/10/2021 02/04/2023 FreeStyle Sanjana 2 [place] MiscIndications:diabet es mellitus 1 each by Other route daily. Indications: diabetes mellitus 1 each 10/26/2021 01/23/2023 FreeStyle Sanjana 2 Sensor KitIndications:diabete s mellitus 1 each by Other route every 14 days. Indications: diabetes mellitus 2 kit 10/26/2021 01/23/2023 FreeStyle Lancets 28 gauge MiscIndications:diabet es mellitus 1 each by Other route 3 times daily. Indications: diabetes mellitus 100 each 11 10/11/2021 06/16/2022 fluticasone propionate (Flonase) 50 mcg/actuation [place], Suspension 1 spray by Each Nare route 2 times daily. 16 g 11 09/10/2021 09/25/2022 nitroGLYcerin (Nitrostat) 0.4 mg Tablet, Sublingual Place 1 tablet under the tongue See Admin Instructions. 30 tablet 07/05/2021 09/25/2022 simvastatin (Zocor) 10 mg TabletIndications:Mixe d hyperlipidemia Take 1 tablet by mouth daily. 90 tablet 3 06/22/2021 06/19/2022 budesonide-formoteroL (Symbicort) 80-4.5 mcg/actuation HFA Aerosol InhalerIndications:Sim ple chronic bronchitis Inhale 2 puffs into the lungs 2 times daily. 3 each 3 05/26/2021 06/24/2022 simethicone (Gas Relief 80, simethicone,) 80 mg Tablet, ChewableIndications:Bl oating Take 1 tablet by mouth every 6 hours as needed for Flatulence. 30 tablet 3 02/03/2021 06/16/2022 polyethylene glycoL (Miralax) 17 gram Powder in [...] EDT TH Visit (TeleHealth) Sleep Center at [facility] [address] [place] [address] Denisse Hardwick, [facility] 03/20/2024 2:00 PM EDT Clinical Support Family Medicine at [facility] [address] [place] [address] Julia Low, [facility] 05/01/2024 11:20 AM EDT Appointment Mammography/[place] [address] Rodney Padilla MD [address] [facility] MED[facility] [place], [place] [phone] 05/01/2024 1:45 PM EDT Office Visit Ophthalmology at [place] [phone] Juanpablo Hernandez MD [facility] [place] [address] 01/30/2025 1:30 PM EDT Appointment Hematology and Oncology at [place] [phone] 01/30/2025 3:[address] Scan at [place] [phone] Arturo Cordero MD [facility] HEMATOLOGY [place] [address] 01/30/2025 4:15 PM EDT Office Visit Hematology and Oncology at [place] [phone] Arturo Cordero MD [facility] DR HEMATOLOGY [place] [address] documented as of this encounter Procedures Procedure Name Priority Date/Time Associated Diagnosis Comments RESEARCH VENIPUNCTURE Routine 05/13/2022 1:05 PM EDT Ocular melanoma, left Renal cell cancer, left documented in this encounter Results * Research Venipuncture (05/13/2022 1:05 PM EDT) Research Venipuncture Drawn [facility] Comment: Collection date/time has been modified to: 13:05:00. ??Previous collection date/time: 13:08:00. Corrected from Drawn [NA] on 05/13/22 13:36:44 EDT by Cyndi Dowd Blood 05/13/2022 1:05 PM EDT 05/13/2022 1:25 PM EDT Narrative Resulting Agency Comment Spec In Lab Dar Fernandez MD CHEMISTRY ORDERABLES [facility] [place] [address] documented in this encounter Visit Diagnoses Diagnosis Ocular melanoma, left Renal cell cancer, left Malignant melanoma of conjunctiva, left documented in this encounter Care Teams Cream Hauler Relationship Specialty Start Date End Date Luis E Narayan MD [facility] DR [address] [facility] [address] PCP - General Family Medicine 01/20/22 07/17/22 documented as of this encounter
--- OUTSIDE RECORDS SUMMARY | 2024-03-04 21:21 | XMS_ITS | Encounter Summary ---
Author Organization [facility] Address [facility] [place] [address] Care Team Providers Care School Laboratory Technician Name Role Phone Luis E Narayan MD Primary Care Provider +1- [phone] Reason for Visit * Reason Comments Abdominal Pain LLQ, bloating, gas, heartburn, ER last night, CT scan Monday Encounter Details Date Type Department Care Team (Late st Contact Info) Description 06/07/2022 11:00 AM EST Office Visit Family Medicine at [facility] [address] [place] [address] Tamera Khan, KATHIA [facility] [address] [place] [address] Chest pain, unspecified type; Urinary urgency; Upper abdominal pain; Bloating; Severe obesity; Coronary artery disease involving [place] coronary artery of [place] heart with angina pectoris Social History Tobacco Use Types Packs/Day Years [...] Sign Reading Time Taken Comments Blood Pressure 139/68 06/07/2022 11:01 AM EST Pulse 81 06/07/2022 11:01 AM EST Temperature 36.1 ??C (97 ??F) 06/07/2022 11:01 AM EST Respiratory Rate 18 06/07/2022 11:01 AM EST Oxygen Saturation 100% 06/07/2022 11:01 AM EST Inhaled Oxygen Concentration - - Weight 109.8 kg (242 lb 2 oz) 06/07/2022 11:01 A M EST Height 161.3 cm (5' 3.5) 06/07/2022 11:01 AM ES T Body Mass Index 42.21 06/07/2022 11:01 AM EST documented in this encounter Progress Notes * Tamera Khan, PUMPER GAUGER APPRENTICE - 06/07/2022 11:00 AM EST Subjective: Patient ID: Alize Gramajo is a 61 y.o. female, presenting for ED follow up Chief Complaint Patient presents with ??? Abdominal Pain LLQ, bloating, gas, heartburn, ER last night, CT scan Monday Went to the ED last night for LLQ abdominal pain, bloating, gas, heartburn CT scan on 06/03 at [facility] showed no evidence of diverticulitis, or other intra- abdominal process Seeing GI- last a/p wanted follow up one month after testing complete (completed 05/13/22) no followup appointment booked thus far LLQ pain, sharp, cramping Pain worse with eating - sometimes - cereal or yogurt is fine No fevers Some nausea, no vomiting Chills every evening from supper on Urgency with symptoms sucrafate 4 times a day Pantoprazole simethicone (IB guard) Review of Systems As above I reviewed problem list and med list in [facility] Objective: BP 139/68 (BP Location (NBP): Left arm, Patient Position: Sitting, BP Cuff Sizes: Large Adult (32-43 cm)) Pulse 81 Temp 36.1 ??C (97 ??F) (Temporal) Resp 18 Ht 161.3 cm (5' 3.5) Wt 109.8 kg (242 lb 2 oz) SpO2 100% BMI 42.21 kg/m?? Physical Exam Constitutional: Appearance: Normal appearance. Cardiovascular: Rate and Rhythm: Normal rate. Pulses: Normal pulses. Heart sounds: Normal heart sounds. Pulmonary: Effort: Pulmonary effort is normal. No respiratory distress. Abdominal: General: Abdomen is flat. Bowel sounds are normal. Palpations: Abdomen is soft. Skin: General: Skin is warm and dry. Capillary Refill: Capillary refill takes less than 2 seconds. Neurological: General: No focal deficit present. Mental Status: She is alert and oriented to person, place, and time. Psychiatric: Mood and Affect: Mood normal. Behavior: Behavior normal. Assessment and Plan: 1. Chest pain, unspecified type/ Upper abdominal pain/ Bloating/ Coronary artery disease involving [place] coronary artery of [place] heart with angina pectoris ? GERD related, EKG with no changes Plan to get in contact with GI, and get patient working with ambulatory pharmacist again re: her lancets and DM management Likely uncontrolled DM is contributing With normal CT 2 days ago; doubt diverticulitis today or acute process - EKG 12 Lead - peppermint oiL 50 mg Capsule, Delayed Release(E.C.); Take 1 capsule by mouth daily. Dispense: 90 capsule; Refill: 3 - simethicone (Gas Relief 80, simethicone,) 80 mg Tablet, Chewable; Take 1 tablet by mouth every 6 hours as needed for Flatulence. Dispense: 30 tablet; Refill: 3 2. Urinary urgency Negative for DKA, UTI - POCT urine dipstick 5. Severe obesity rec follow up with PCP Follow up prn with new or worsening concerns and with specialty providers as above Tamera Khan APRN documented in this encounter Plan of Treatment Upcoming Encounters Date Type Department Care Team (Late st Contact Info) Description 03/20/2024 9:00 AM EDT TH Visit (TeleHealth) Sleep Center at [facility] [address] [place] [phone] Denisse Hardwick, [facility] 03/20/2024 2:00 PM EDT Clinical Support Family Medicine [facility] [address] [place] [address] Julia Low, [facility] 05/01/2024 11:20 AM EDT Appointment Mammography/[place] [phone] Rodney Padilla MD [address] [facility] [place] [address] 05/01/2024 1:45 PM EDT Office [place] [address] Juanpablo Hernandez MD [facility] [place] [address] 01/30/2025 1:30 PM EDT Appointment Hematology [place] [address] 01/30/2025 3:[address] [place] [address] Arturo Cordero MD [facility] [place] [address] 01/30/2025 4:15 PM EDT Office Visit Hematology [place] [address] Arturo Cordero MD [facility] DR [place] [address] documented as of this encounter Procedures Procedure Name Priority Date/Time Associated Diagnosis Comments POCT URINE DIPSTICK Routine 06/07/2022 1 2:12 PM EST Urinary urgency EKG 12-LEAD Routine 06/07/2022 12:07 PM EST Chest pain, unspecified type documented in this encounter Results * (ABNORMAL) POCT urine dipstick (06/07/2022 12:12 PM EST) [facility] Sp [place] 1.020 1.002 - 1.030 POC pH, UA 5 5.0 - 8.5 POC Leuk, UA neg Negative - Negative POC Nitrite, UA neg Negative - Negative POC Protein, UA neg Negative - Negative mg/dL POC Glucose, UA 500 Normal - Normal mg/dL POC Ketone, UA neg Negative - Negative POC Urobil, UA normal 0.2 - 1.0 mg/dL POC Bili, UA neg Negative - Negative POC Blood, UA neg Negative - Negative leydi/uL Urine specimen obtained by clean catch procedure (specimen) 06/07/2022 12:12 PM EST Tamera Khan PUMPER GAUGER APPRENTICE POINT OF CARE TEST O RDERABLES * EKG 12 Lead (06/07/2022 12:07 PM EST) Ventricular rate 68 BPM MUSE SYSTEM Atrial Rate 68 BPM MUSE SYSTEM P-R Interval 148 ms MUSE SYSTEM QRS Duration 90 ms MUSE SYSTEM Q-T Interval 402 ms MUSE SYSTEM QTC Calculated (Bezet) 427 ms MUSE SYSTEM Calculated P [place] -2 degrees MUSE SYSTEM Calculated R [place] 22 degrees MUSE SYSTEM Calculated T [place] 45 degrees MUSE SYSTEM INTERPRETATION Normal sinus rhythm Nonspecific T wave abnormality When compared with ECG of 31-MAY-2021 17:16, No significant change was found I personally reviewed the tracing and agree with the fellows interpretation Confirmed by fellow MD Valarie, Molly ([id number]) on 06/07/2022 8:59:36 PM Confirmed by MD Siddhartha, Lashon ([id number]) on 06/07/2022 9:09:11 PM MUSE SYSTEM 06/07/2022 12:0 7 PM EST 06/07/2022 9:09 PM EST Tamera Khan APRN ECG ORDERABLES MUSE SYSTEM documented in this encounter Visit Diagnoses Diagnosis Chest pain, unspecified type Urinary urgency Urgency of urination Upper abdominal pain Abdominal pain, other specified site Bloating Flatulence, eructation, and gas pain Severe obesity Morbid obesity Coronary artery disease involving [place] coronary artery of [place] heart with angina pectoris documented in this encounter Care Teams School Laboratory Technician Relationship Specialty Start Date End Date Luis E Narayan MD [facility] DR [address] [place] [address] PCP - General Family Medicine 01/20/22 07/17/22 documented as of this encounter
--- OUTSIDE RECORDS SUMMARY | 2024-03-04 21:21 | XMS_ITS | Encounter Summary ---
Author Organization [facility] Address [facility] [place] [address] Care Team Providers Care Plater Production Name Role Phone Luis E Narayan MD Primary Care Provider [phone] Encounter Details Date Type Department Care Team (Latest Contact Info) Description 06/20/2022 Travel Social History Tobacco Use Types Packs/Day [...] place to sleep or slept in a care home (including now)? No 06/14/2021 Sex and Gender Information Value Date Recorded Sex Assigned at Not on file Gender Identity Not on file Sexual Orientation Not on file documented as of this encounter Plan of Treatment Upcoming Encounters Date Type Department Care Team (Late st Contact Info) Description 03/20/2024 9:00 AM EDT TH Visit (TeleHealth) Sleep Center at [facility] [address] [place] [address] Denisse Hardwick, [facility] 03/20/2024 2:00 PM EDT Clinical Support Family Medicine at [facility] [address] [place] [address] Julia Low, [facility] 05/01/2024 11:20 AM EDT Appointment Mammography/[place] [address] Rodney Padilla MD [address] [facility] [place], [place] [phone] 05/01/2024 1:45 PM EDT [place] [address] Juanpablo Hernandez MD [facility] [place] [address] 01/30/2025 1:30 PM EDT Appointment [place] [address] 01/30/2025 3:[address] [place] [address] Arturo Cordero MD [facility] [place] [address] 01/30/2025 4:15 PM EDT Office Visit [place] [address] Arturo Cordero MD [facility] [place] [address] documented as of this encounter Visit Diagnoses Not on filedocumented in this encounter Care Teams Plater Production Relationship Specialty Start Date End Date Luis E Narayan MD [facility] [address] [place] [address] PCP - General Family Medicine 01/20/22 07/17/22 documented as of this encounter
--- OUTSIDE RECORDS SUMMARY | 2024-03-04 21:21 | XMS_ITS | Encounter Summary ---
Author Organization [facility] Address [facility] [place] [address] Care Team Providers Care Dance Professor Name Role Phone Luis E Narayan MD Primary Care Provider +1- [phone] Reason for Visit * Reason Onset Date Comments Medication Refill 04/14/2022 Encounter Details Date Type Department Care Team (Late st Contact Info) Description 04/14/2022 Refill Family Medicine at [facility] [address] [place] [address] Cuate Solis PA [facility] DR LILI WALKER[place] [address] Social History Tobacco Use Types Packs/Day Years [...] Telephone Encounter - Judie Barbosa CMA - 04/15/2022 5:15 PM EDT Prescription Refill Request Prescription(s) Requested: Requested Prescriptions Pending Prescriptions Disp Refills ??? losartan (Cozaar) 100 mg Tablet 30 tablet 0 Sig: Take 1 tablet by mouth daily. Date of Encounter last in This Dept (If over a year and no apt scheduled send to secretaries to schedule): 04/12/2022 w/jyoti Next Encounter in This Dept: 04/19/2022 w/jyoti Date of Last Refill (for each medication): 02/11/2022 #30 Medication category req. lab studies Lab Results [...] at [facility] [address] [place] [phone] Denisse Hardwick, LAB ANALYST SLEEP CENTER 03/20/2024 2:00 PM EDT Clinical Support Family Medicine [facility] [address] [place] [address] Julia Low, [facility] 05/01/2024 11:20 AM EDT Appointment Mammography/[place] [address] Rodney Padilla MD [address] FAMILY MEDICINE [place], [place] [phone] 05/01/2024 1:45 PM EDT Office Visit Ophthalmology at [place] [phone] Juanpablo Hernandez MD [facility] [place] [address] 01/30/2025 1:30 PM EDT Appointment Hematology [place] [address] 01/30/2025 3:[address] Scan at [place] [phone] Arturo Cordero MD [facility] DR HEMATOLOGY [place] [address] 01/30/2025 4:15 PM EDT Office Visit Hematology [place] [address] Arturo Cordero MD [facility] HEMATOLOGY [place] [address] documented as of this encounter Visit Diagnoses Not on filedocumented in this encounter Care Teams Dance Professor Relationship Specialty Start Date End Date Luis E Narayan MD [facility] [address] [place] [address] PCP - General Family Medicine 01/20/22 07/17/22 documented as of this encounter
--- OUTSIDE RECORDS SUMMARY | 2024-03-04 21:21 | XMS_ITS | Encounter Summary ---
Author Organization [facility] Address [facility] Siri [facility] [place] [address] Care Team Providers Care Highway Landscape Architect Name Role Phone Luis E Narayan MD Primary Care Provider +1- [phone] Encounter Details Date Type Department Care Team (Late st Contact Info) Description 06/21/2022 Orders Only [place] [address] Leandra Lopes, INVESTMENT ADVISOR [facility] HEMATOLOGY [place] [address] Ocular melanoma, left Social History Tobacco Use Types Packs/Day [...] [facility] [address] [place] [phone] Denisse Hardwick, [facility] 03/20/2024 2:00 PM EDT Clinical Support Family Medicine at [facility] [address] [place] [phone] Julia Low [facility] 05/01/2024 11:20 AM EDT Appointment Mammography/[place] [address] Rodney Padilla MD [address] [place] [address] 05/01/2024 1:45 PM EDT Office [place] [address] Juanpablo Hernandez MD [facility] [place] [address] 01/30/2025 1:30 PM EDT Appointment Hematology [place] [address] 01/30/2025 3:[address] Scan at [place] [phone] Arturo Cordero MD [facility] HEMATOLOGY [place] [address] 01/30/2025 4:15 PM EDT Office Visit Hematology and Oncology at [place] [phone] Arturo Cordero MD [facility] DR HEMATOLOGY [place] [address] documented as of this encounter Results * (ABNORMAL) Comprehensive metabolic panel (non-fasting) (06/23/2022 11:47 AM EST) [facility] Glucose 274(H) 65 - 199 mg/dL [facility] Comment:Diabetes: >=200 mg/d L plus symptoms Blood Urea Nitrogen 12 8 - 18 mg/dL [facility] Creatinine 0.92 0.70 - 1.20 mg/dL [facility] Sodium 139 135 - 145 mmol/L [facility] Potassium 4.1 3.5 - 5.0 mmol/L [facility] Comment: Please note: ??Patients with WBC >100,000 may have falsely elevated Potassium levels. ??For accurate Potassium quantification in these patients send serum separator tube (gold top) for subsequent determinations. ??Contact the Clinical Chemistry Laboratory if there are any questions. Chloride 104 98 - 107 mmol/L [facility] Carbon Dioxide 25 22 - 31 mmol/L [facility] Anion Gap 10 5 - 15 mmol/L [facility] Calcium 9.6 8.5 - 10.5 mg/dL [facility] Protein, Total 7.0 6.1 - 8.0 g/dL [facility] Albumin 4.2 3.2 - 5.2 g/dL [facility] Aspartate Aminotransferase 16 0 - 30 unit/L [facility] Alanine Aminotransferase 27 0 - 30 unit/L [facility] Alkaline Phosphatase 113(H) 35 - 105 unit/L [facility] Bilirubin, Total 0.5 0.2 - 1.3 mg/dL [facility] Est Glomerular Filtration Rate 70 >=60 mL/min/1. 73 m?? [facility] Comment: This patient's estimated GFR [...] and symptoms in addition to eGFR. Blood 06/23/2022 11:4 7 AM EST 06/23/2022 11:51 AM EST Narrative Resulting Agency Comment Spec In Lab Leandra Lopes APRN CHEMISTRY ORDERABL ES [facility] [place] [address] documented in this encounter Visit Diagnoses Diagnosis Ocular melanoma, left documented in this encounter Care Teams Highway Landscape Architect Relationship Specialty Start Date End Date Luis E Narayan MD [facility] [address]-[place] [address] PCP - General Family Medicine 01/20/22 07/17/22 documented as of this encounter
--- OUTSIDE RECORDS SUMMARY | 2024-03-04 21:21 | XMS_ITS | Encounter Summary ---
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 Indications: diabetes mellitus 1 each 10/26/2021 01/23/2023 FreeStyle Sanjana 2 Sensor KitIndications:diabete s mellitus 1 each by Other route every 14 days. Indications: diabetes mellitus 2 kit 10/26/2021 01/23/2023 fluticasone propionate (Flonase) 50 mcg/actuation [place], Suspension 1 spray by Each Nare route [...] Center at [facility] [address] [place] [phone] Denisse Hardwick, [facility] 03/20/2024 2:00 PM EDT Clinical Support Family Medicine at [facility] [address] [place] [address] Julia Low, [facility] 05/01/2024 11:20 AM EDT Appointment Mammography/[place] [phone] Rodney Padilla MD [address] [facility] [place] [address] 05/01/2024 1:45 PM EDT Office [place] [phone] Juanpablo Hernandez MD [facility] [place] [address] 01/30/2025 1:30 PM EDT Appointment Hematology [place] [phone] 01/30/2025 3:[address] [place] [address] Arturo Cordero MD [facility] DR HEMATOLOGY [place] [address] 01/30/2025 4:15 PM EDT Office Visit Hematology and Oncology at [facility] [place] [address] Arturo Cordero MD [facility] DR H[place]ATOLOG[place] [address] documented as of this encounter Procedures Procedure Name Priority Date/Time Associated Diagnosis Comments HEMOGRAM STAT 06/23/2022 11:47 AM EST Ocular melanoma, left DIFFERENTIAL, AUTOMATED STAT 06/23/2022 11:47 AM EST Ocular melanoma, left HC CBC,PLT & AUTO DIFF STAT 06/23/2022 11:47 AM EST Ocular melanoma, left HC VENIPUNCTURE STAT 06/23/2022 11:47 AM EST Ocular melanoma, left documented in this encounter Results * Differential, Automated (06/23/2022 11:47 AM EST) Neutrophil % 68.2 % [facility] Neutrophil Absolute 6.07 1.70 - 6.10 x10(3)/[facility] Lymph % 23.1 % [facility] Lymphocytes Abs 2.1 0.9 - 3.2 x10(3)/[facility] Monocyte % 6.6 % [facility] Monocyte Abs 0.6 0.3 - 0.9 x10(3)/[facility] Eos % 1.3 % [facility] Eosinophils Abs 0.1 0.0 - 0.4 x10(3)/[facility] Basophil % 0.4 % [facility] Baso Absolute 0.0 0.0 - 0.1 x10(3)/[facility] Immature Gran % 0.40 % [facility] Comment: Immature granulocytes(IG's)percentage and absolute count will include metamyelocytes, myelocytes, and promyelocytes. Blood smears from CBCs yielding IG's will be scanned manually for concordance. If this scan disagrees with the automated IG or if promyelocytes are noted, a manual differential will be performed. Immature Gran Absolute 0.04 0.00 - 0.04 x10(3)/mcL [facility] Blood 06/23/2022 11:4 7 AM EST 06/23/2022 11:51 AM EST Narrative Resulting Agency Comment Spec In Lab Leandra Lopes SLING OPERATOR HEMATOLOGY ORDERAB LES [facility] [place] [address] * (ABNORMAL) Hemogram (06/23/2022 11:47 AM EST) White Blood Cell 8.9 4.0 - 9.5 x10(3)/mc L [facility] Red Blood Cell 4.60 4.00 - 5.21 x10(6)/mc L [facility] Hemoglobin 12.9 11.7 - 15.5 g/dL [facility] Hematocrit 39.0 35.7 - 45.8 % [facility] Mean Cell Volume 84.8 82.6 - 94.4 fL [facility] Mean Cell Hemoglobin 28.0 27.1 - 32.0 pg [facility] Mean Cell Hemoglobin Concentration 33.1 31.7 - 35.0 g/dL [facility] Platelet 368(H) 145 - 357 x10(3)/mc L [facility] RDW Standard Deviation 43.6 37.0 - 46.0 fL [facility] RDW coefficient of variation 14.0 11.5 - 14.1 % [facility] Mean Platelet Volume 9.0 7.6 - 12.9 fL [facility] NRBC% auto 0.0 % [facility] NRBC Absolute 0.000 0.000 - 0.000 x10(3)/mc L [facility] Blood 06/23/2022 11:4 7 AM EST 06/23/2022 11:51 AM EST Narrative Resulting Agency Comment Spec In Lab Leandra Lopes SLING OPERATOR HEMATOLOGY ORDERAB LES [facility] [place] [address] * (ABNORMAL) Comprehensive metabolic panel (non-fasting) (06/23/2022 11:47 AM EST) Glucose 274(H) 65 - 199 mg/dL [facility] Comment:Diabetes: >=200 mg/d L plus symptoms Blood Urea Nitrogen 12 8 - 18 mg/dL [facility] Creatinine 0.92 0.70 - 1.20 mg/dL [facility] Sodium 139 135 - 145 mmol/L [facility] Potassium 4.1 3.5 - 5.0 mmol/L [facility] Comment: Please note: ??Patients with WBC >100,000 may have falsely elevated Potassium levels. ??For accurate Potassium quantification in these patients send serum separator tube (gold top) for subsequent determinations. ??Contact the Clinical Chemistry Laboratory if there are any questions. Chloride 104 98 - 107 mmol/L [facility] Carbon Dioxide 25 22 - 31 mmol/L [facility] Anion Gap 10 5 - 15 mmol/L [facility] Calcium 9.6 8.5 - 10.5 mg/dL [facility] Protein, Total 7.0 6.1 - 8.0 g/dL [facility] Albumin 4.2 3.2 - 5.2 g/dL [facility] Aspartate Aminotransferase 16 0 - 30 unit/L [facility] Alanine Aminotransferase 27 0 - 30 unit/L [facility] Alkaline Phosphatase 113(H) 35 - 105 unit/L [facility] Bilirubin, Total 0.5 0.2 - 1.3 mg/dL [facility] Est Glomerular Filtration Rate 70 >=60 mL/min/1. 73 m?? [facility] Comment: This patient's estimated GFR [...] Agency Comment Spec In Lab Leandra Lopes SLING OPERATOR CHEMISTRY ORDERABL ES [facility] [place] [address] documented in this encounter Visit Diagnoses Diagnosis Ocular melanoma, left documented in this encounter Care Teams Clinical Studies Specialist Relationship Specialty Start Date End Date Luis E Narayan MD [facility] [place] [address] PCP - General Family Medicine 01/20/22 07/17/22 documented as of this encounter
--- OUTSIDE RECORDS SUMMARY | 2024-03-04 21:21 | XMS_ITS | Encounter Summary ---
Author Organization [facility] [place] [address] Care Team Providers Care Livestock Commission Agent Name Role Phone Luis E Narayan MD Primary Care Provider +1- [phone] Reason for Visit * Reason Onset Date Comments Appointment 04/19/2022 Encounter Details Date Type Department Care Team (Late st Contact Info) Description 04/19/2022 Telephone Internal Medicine at [facility] [address] [place] [phone] Cara Thomas, RN Appointment Social History Tobacco Use Types Packs/Day Years [...] encounter Miscellaneous Notes * Telephone Encounter - Cara Thomas RN - 04/19/2022 1:35 PM EDT Call to patient per request of Prabhu Martinez APRN. Patient is scheduled for an in clinic appointment this afternoon for hospital check. Patient [place], Suzanne says that if patient is doing well on the antibiotics, and they are well tolerate and proving to be effective, a tele-health visit would suffice so that patient does not have to make the long drive here. Message left on vmail to call clinic back albert. Vmail was not identified. Called X2. No answer 1 message left. documented in this encounter Plan of Treatment Upcoming Encounters Date Type Department Care Team (Late st Contact Info) Description 03/20/2024 9:00 AM EDT TH Visit (TeleHealth) Sleep Center at [facility] [address] [place] [address] Denisse Hardwick, [place] MACHINE OPERATOR SLEEP CENTER 03/20/2024 2:00 PM EDT Clinical Support Family Medicine at [facility] [address] [place] [address] Julia Low, [facility] 05/01/2024 11:20 AM EDT Appointment Mammography/DXA at [place] [phone] Rodney Padilla MD [address] [place] [address] 05/01/2024 1:45 PM EDT Office Visit Ophthalmology at [place] [address] Juanpablo Hernandez MD [facility] [place] [address] 01/30/2025 1:30 PM EDT Appointment Hematology and Oncology at [place] [address] 01/30/2025 3:[address] Scan [place] [address] Arturo Cordero MD [facility] DR HEMAT[place] [address] 01/30/2025 4:15 PM EDT Office Visit Hematology and Oncology at [place] [address] Arturo Cordero MD [facility] DR [place]AT[place] [address] documented as of this encounter Visit Diagnoses Not on filedocumented in this encounter Care Teams Livestock Commission Agent Relationship Specialty Start Date End Date Luis E Narayan MD [facility] [address] PCP - General Family Medicine 01/20/22 07/17/22 documented as of this encounter
--- OUTSIDE RECORDS SUMMARY | 2024-03-04 21:21 | XMS_ITS | Encounter Summary ---
Author Organization [facility] Address [facility] [place] [address] Care Team Providers Care Reverse Engineer Name Role Phone Luis E Narayan MD Primary Care Provider +1- [phone] Reason for Visit * Reason Onset Date Comments Medication Refill 04/21/2022 Encounter Details Date Type Department Care Team (Late st Contact Info) Description 04/21/2022 Refill Family Medicine at [facility] [address] [place] [address] Earl Valdez MD [facility] DR [address] [address] Social History Tobacco Use Types Packs/Day Years [...] Encounter - Judie Barbosa CMA - 04/21/2022 10:54 AM EDT Prescription Refill Request Prescription(s) Requested: Requested Prescriptions Pending Prescriptions Disp Refills ??? miconazole (Micotin) 2 % Cream 45 g 0 Sig: Place 1 applicator vaginally nightly. Date of Encounter last in This Dept (If over a year and no apt scheduled send to secretaries to schedule): 04/19/2022 juan Next Encounter in This Dept: Visit date not found Date of Last Refill (for each medication): 04/05/2022 Pt still experiencing symptoms Medication category req. lab studies documented in this encounter Plan of Treatment Upcoming Encounters Date Type Department Care Team (Late st Contact Info) Description 03/20/2024 9:00 AM EDT TH Visit (TeleHealth) Sleep Center at [facility] [address] [place] [address] Denisse Hardwick, [facility] 03/20/2024 2:00 PM EDT Clinical Support Family Medicine at [facility] [address] [place] [address] Julia Low, [facility] 05/01/2024 11:20 AM EDT Appointment Mammography/[place] [address] Rodney Padilla MD [address] [facility] [place] [address] 05/01/2024 1:45 PM EDT Office Visit Ophthalmology at [place] [phone] Juanpablo Hernandez MD [facility] [place] [address] 01/30/2025 1:30 PM EDT Appointment Hematology and Oncology at [place] [phone] 01/30/2025 3:[address] Scan at [place] [phone] Arturo Cordero MD [facility] [place] [address] 01/30/2025 4:15 PM EDT Office Visit Hematology and Oncology at [place] [phone] Arturo Cordero MD [facility] [place] [address] documented as of this encounter Visit Diagnoses Not on filedocumented in this encounter Care Teams Reverse Engineer Relationship Specialty Start Date End Date Luis E Narayan MD [facility] [address] [place] [address] PCP - General Family Medicine 01/20/22 07/17/22 documented as of this encounter
--- OUTSIDE RECORDS SUMMARY | 2024-03-04 21:21 | XMS_ITS | Encounter Summary ---
Author Organization [facility] Address [facility] [place] [address] Care Team Providers Care Outside Upholsterer Name Role Phone Luis E Narayan MD Primary Care Provider [phone]- [phone] Reason for Visit * Reason Comments Follow-up Encounter Details Date Type Department Care Team (Late st Contact Info) Description 04/19/2022 3:30 PM EDT Office Visit Family Medicine at [facility] [address] [place] [address] Suzanne Martinez APRN [facility] DR LIL[address] WALKER-[place] [address] LLQ pain; Community acquired pneumonia, unspecified laterality; Adrenal mass; Low back pain, non-specific Social History Tobacco Use Types Packs/Day Years [...] as of this encounter Progress Notes * Suzanne Martinez, GREASE AND TALLOW PUMPER - 04/19/2022 3:30 PM EDT Alize Gramajo is a 61 y.o. female , patient of Luis E Narayan MD here for Chief Complaint Patient presents with ??? Follow-up Subjective HPI: Alize presents for ED follow up for [facility] visit for LLQ pain and diarrhea on 04/13/22. See my telephone encounter with her from a few days prior. She had an abdominal CT showing diverticulosis without diverticulitis; however due to her symptoms she was suspected to have an early diverticulitis. She was discharged with instructions to follow a clear liquid diet x 2 days and was given a rx for Augmentin to use if symptoms persisted. Alize reports she started the antibiotics and she has noted improvement in her stools - having normal bowel movements as compared to the loose and urgent stools she was having before. She continuesto have some lower abdominal discomfort. Denies fevers, nausea, vomiting, change in urinary frequency or urgency, dysuria, hematuria, vaginal discharge. She is also having some low back pain which persists since her recent prolonged chest infection. She reports it is worse with certain movements and positions. She would like to go over her CT results in detail - would like me to review what was seen. ROS: See Subjective history Allergies Allergen Reactions ??? Codeine Phosphate Nausea And Vomiting ??? Erythromycin Base Nausea Only ??? Azithromycin ??? Ibuprofen Stomach upset ??? Lisinopril cough ??? Nsaids (Non-Steroidal Anti-Inflammatory Drug) Nausea And Vomiting Objective There were no vitals taken for this visit. Physical Exam Gen: Alert,NAD Abdominal: Appears slightly distended. Active bowel sounds throughout. Soft. Mildly tender to palpation lower quadrants. MSK: Low back paraspinals with palpable spasm and tenderness, L>R. Assessment/Plan Alize was seen today for follow-up . Diagnoses and all orders for this visit: LLQ pain and loose stools Improving, but ongoing. Treated empirically with Augmentin at [facility] for ?diverticulitis and she is on ~day 4. CT was otherwise negative for other acute or chronic intra-abdominal processes that would cause pain. Reproductive organs were normal appearing. Stools improving. There is some question as to whether this is related to her chronic GI issues which are currently being worked up by GI (upcoming testing). Recommended she continue with a bland diet and ok to advance as tolerated as she completes she antibiotics. If her loose stools continue would check for C. diff given recent antibiotic use. Recommended follow up if lower abdominal pain continues. Mid-low back pain Suspect MSK related to inactivity during recent respiratory infections, vs muscular strain or costochondritis r/t coughing. Recommended topical heat, lidocaine patch, gentle stretching. Community acquired pneumonia, unspecified laterality - XR Chest PA & Lateral (Generic); Future; Expected date: 05/10/2022 Reviewed recommendation to follow up in 6 weeks with repeat CXR. Adrenal mass Patient was not aware of the adrenal nodule being monitored via CT over time. Reviewed that this has been noted to be stable in appearance. Summarized lab and imaging findings in her problem list forfuture reference. She has regular surveillance imaging with Heme/Onc given her history of kidney cancer. Recent A1C was 9% -- recommend following up within the next 1-2 weeks to review a plan. She was previously recommended to use GLP1ra but this was put on hold due to chronic GI issues. Will route to PCP as FYI given patient complexity. Including chart review and advanced preparation regarding this patient's case, the visit itself [ interview, physical exam as pertinent, formation and discussion of plan of care, education and counseling ], as well as related coordination of care, a total of 30 minutes were spent on this patient's care today. Suzanne Martinez APRN documented in this encounter Miscellaneous Notes * Assessment & Plan Note - Suzanne Martinez APRN - 04/24/2022 3:49 PM EDT Associated Problem(s): Adrenal mass Patient was not aware of the adrenal nodule being monitored via CT over time. Reviewed that this has been noted to be stable in appearance. Summarized lab and imaging findings in her problem list forfuture reference. She has regular surveillance imaging with Heme/Onc given her history of kidney cancer. documented in this encounter Plan of Treatment Upcoming Encounters Date Type Department Care Team (Late st Contact Info) Description 03/20/2024 9:00 AM EDT TH Visit (TeleHealth) Sleep [facility] [address] [place] [phone] Denisse Hardwick SELVAGE MACHINE OPERATOR SLEEP CENTER 03/20/2024 2:00 PM EDT Clinical Support Family Medicine [facility] [address] [place] [address] Julia Low RPH 05/01/2024 11:20 AM EDT Appointment Mammography/[place] [address] Rodney Padilla MD [address] [place] [address] 05/01/2024 1:45 PM EDT Office Visit Ophthalmology at [place] [phone] Juanpablo Hernandez MD [facility] [place] [address] 01/30/2025 1:30 PM EDT Appointment Hematology and Oncology at [place] [address] 01/30/2025 3:[address] Scan at [place] [address] Arturo Cordero MD [facility] HEMATOLOGY [place] [address] 01/30/2025 4:15 PM EDT Office Visit Hematology and Oncology at [place] [phone] Arturo Cordero MD [facility] HEMATOLOGY [place] [address] documented as of this encounter Visit Diagnoses Diagnosis LLQ pain Abdominal pain, left lower quadrant Community acquired pneumonia, unspecified laterality Adrenal mass Unspecified disorder of adrenal glands Low back pain, non-specific documented in this encounter Care Teams Outside Upholsterer Relationship Specialty Start Date End Date Luis E Narayan MD [facility] [address] [place] [address] PCP - General Family Medicine 01/20/22 07/17/22 documented as of this encounter
--- OUTSIDE RECORDS SUMMARY | 2024-03-04 21:21 | XMS_ITS | Encounter Summary ---
Author Organization Replaced By [facility] Address [facility] [place] [address] Care Team Providers Care Janitor Helper Name Role Phone Luis E Narayan MD Primary Care Provider [phone]- [phone] Reason for Visit * Reason Onset Date Comments Medication Refill 06/19/2022 Encounter Details Date Type Department Care Team (Late st Contact Info) Description 06/19/2022 Refill Family Medicine at [facility] [address] [address] Luis E Narayan MD [facility] DR LIL[address] WALKER-[place] [address] Mixed hyperlipidemia Social History Tobacco Use Types [...] Telephone Encounter - Jade Kruse MA - 06/20/2022 4:19 PM EST Prescription Refill Request Prescription(s) Requested: Requested Prescriptions Pending Prescriptions Disp Refills ??? simvastatin (Zocor) 10 mg Tablet 90 tablet 3 Sig: Take 1 tablet by mouth daily. Date of Encounter last in This Dept (If over a year and no apt scheduled send to secretaries to schedule): 06/07/2022 Bill Next Encounter in This Dept: 07/07/2022 Date of Last Refill (for each medication): 06/22/2021 Medication category req. lab studies documented in this encounter Plan of Treatment Upcoming Encounters Date Type Department Care Team (Late st Contact Info) Description 03/20/2024 9:00 AM EDT TH Visit (TeleHealth) Sleep Center at [facility] [address] [place] [address] Denisse Hardwick, CLINICAL PROGRAM DIRECTOR SLEEP CENTER 03/20/2024 2:00 PM EDT Clinical Support Family Medicine at [facility] [address] [place] [address] Julia Low [facility] 05/01/2024 11:20 AM EDT Appointment Mammography/[place] [address] Rodney Padilla MD [address] [place] [address] 05/01/2024 1:45 PM EDT Office Visit Ophthalmology at [place] [phone] Juanpablo Hernandez MD [facility] [place] [address] 01/30/2025 1:30 PM EDT Appointment Hematology and Oncology at [place] [phone] 01/30/2025 3:[address] Scan at [place] [phone] Arturo Cordero MD [facility] HEMATOLOGY [place] [address] 01/30/2025 4:15 PM EDT Office Visit Hematology and Oncology at [place] [address] Arturo Cordero MD [facility] HEMATOLOGY [place] [address] documented as of this encounter Visit Diagnoses Diagnosis Mixed hyperlipidemia documented in this encounter Care Teams Janitor Helper Relationship Specialty Start Date End Date Luis E Narayan MD [facility] [address] [address] PCP - General Family Medicine 01/20/22 07/17/22 documented as of this encounter
--- OUTSIDE RECORDS SUMMARY | 2024-03-04 21:21 | XMS_ITS | Encounter Summary ---
Author Organization [facility] Address [facility] [place] [address] Care Team Providers Care Behavioral Psychologist Name Role Phone Luis E Narayan MD Primary Care Provider [phone] Encounter Details Date Type Department Care Team (Latest Contact Info) Description 06/01/2022 Travel Social History Tobacco Use Types Packs/Day [...] [facility] [address] [place] [address] Denisse Hardwick, WET END SUPERVISOR SLEEP CENTER 03/20/2024 2:00 PM EDT Clinical Support Family Medicine at [facility] [address] [place] [address] Julia Low, [facility] 05/01/2024 11:20 AM EDT Appointment Mammography/[place] [address] Rodney Padilla MD [address] [facility] [place], [place] [address] 05/01/2024 1:45 PM EDT Office [place] [address] Juanpablo Hernandez MD [facility] [place] [address] 01/30/2025 1:30 PM EDT Appointment Hematology [place] [address] 01/30/2025 3:[address] [place] [address] Arturo Cordero MD [facility] H[place]ATOLOG[place] [address] 01/30/2025 4:15 PM EDT Office Visit Hematology [place] [address] Arturo Cordero MD [facility] [place] [address] documented as of this encounter Visit Diagnoses Not on filedocumented in this encounter Care Teams Behavioral Psychologist Relationship Specialty Start Date End Date Luis E Narayan MD [facility] [address] [place] [address] PCP - General Family Medicine 01/20/22 07/17/22 documented as of this encounter
--- OUTSIDE RECORDS SUMMARY | 2024-03-04 21:21 | XMS_ITS | Encounter Summary ---
Author Organization formerly [place] [address] Care Team Providers Care Information Systems Specialist Name Role Phone Luis E Narayan MD Primary Care Provider [phone]- [phone] Reason for Visit * Reason Onset Date Comments Results 05/30/2022 Encounter Details Date Type Department Care Team (Late st Contact Info) Description 05/30/2022 Telephone Hematology [place] [address] Tito Matta V [facility] Hematology/[place] [address] Results Social History Tobacco Use Types Packs/Day [...] encounter Miscellaneous Notes * Telephone Encounter - Tito Matta V, [facility] - 05/30/2022 3:27 PM EST This test result was discussed with the patient by phone. A copy of the test results have been scanned in the medical record and sent to Alize. A summary of the results is provided below. Please beadvised that [place] law requires that all health care workers respect the confidentiality ofthis information and not pass it along to other health care providers, insurance companies, or individuals without the written permission of the patient. The Familial Cancer Program welcomes any questions about these matters. Our phone number is: [phone]. On 05/13/2022 Alize was seen for genetic counseling and subsequently underwent genetic testing for a hereditary predisposition to cancers in eight major organ systems including breast, gynecologic,gastrointestinal, endocrine, genitourinary, skin, brain/nervous system, sarcoma and hematologic. Following are the results of this test. Result: [facility] Multi-Cancer Panel and Renal/Urinary Tract Cancers Panel showed no mutation was detected.This means that Alize does not carry a mutation in the genes detectable by this test. The following 85 genes were evaluated for sequence changes and exonic deletions/duplications: AIP, ALK, APC, QUOC, AXIN2, BAP1, BARD1, BLM, BMPR1A, BRCA1, BRCA2, BRIP1, CASR, CDC73, CDH1, CDK4, CDKN1B, CDKN1C, CDKN2A (p14ARF), CDKN2A ([id number]), CEBPA, CHEK2, CTNNA1, DICER1, DIS3L2, EGFR, EPCAM (Chris tion/duplication testing only), FH, FLCN, GATA2, GPC3, GREM1 (Promoter region deletion/duplication testing only), HOXB13, HRAS, KIT, MAX, MEN1, MET, MITF, (c.952G>A,P.Btf964Axd variant only), MLH1, MSH2, MSH3, MSH6, MUTYH, NBN, NF1, NF2, NTHL1, PALB2, PDGFRA, PHOX2B, PMS2, POLD1, POLE, POT1, JIGTU5T, PTCH1, PTEN, RAD50, RAD51C, RAD51D, RB1, RECQL4, REST, RET, RUNX1, SDHA, SDHAF2, SDHB, SDHC, SDHD, SMAD4, SMARCA4, SMARCB1, SMARCE1, STK11, SUFU, TERC, TERT, XSCA550, TP53, TSC1, TSC2, VHL, WRN,and WT1. Interpretation: This test did not identify an underlying genetic cause for the personal history of ocular melanoma and kidney cancer family history of kidney, uterine, breast, bladder, brain, and other cancers. Possible explanations for this negative test result include: ?? Alize's cancer and the cancer in her family may be due to non genetic, environmental causes. ?? There could be a mutation in Alize's family that Alize did not inherit. ?? There could be mutations in other cancer genes not included in this test, or in genes yet to be discovered. ?? There is a very small chance that a pathogenic variant/mutation could be missed due to limitations in the testing. Additional genetic testing for Alize is not recommended at this time. Screening Recommendations Based on genetic test results and personal and/or family history, we recommend: Breast cancer screening ?? Be aware of any breast changes and share concerns with primary care provider ?? Annual clinical breast exams ?? Annual mammograms/Biennial or annual tomosynthesis (3D mammogram) Gynecologic cancer screening ?? Pelvic exams and/or Pap smears as recommended by Alize's esthetics instructor or primary care provider. Colon cancer screening ?? Routine colorectal cancer screening starting by age 45-50 is important for everyone, regardless of genetic predisposition. ?? Periodic colonoscopy screening as recommended by Alize's parts salesman. Skin cancer screening ?? Skin cancer screening and sun protection are important for everyone, regardless of genetic predisposition. ?? Consideration of routine dermatologic/skin exams, as recommended by Alize's primary care provider or hris analyst. documented in this encounter Plan of Treatment Upcoming Encounters Date Type Department Care Team (Late st Contact Info) Description 03/20/2024 9:00 AM EDT TH Visit (TeleHealth) Sleep Center at [facility] [address] [place] [address] Denisse Hardwick, LEGAL EDITOR SLEEP CENTER 03/20/2024 2:00 PM EDT Clinical Support Family Medicine [facility] [address] [place] [address] Julia Low, [facility] 05/01/2024 11:20 AM EDT Appointment Mammography/[place] [address] Rodney Padilla MD [address] [facility] [place] [address] 05/01/2024 1:45 PM EDT Office [place] [address] Juanpablo Hernandez MD [facility] [place] [address] 01/30/2025 1:30 PM EDT Appointment Hematology [place] [address] 01/30/2025 3:[address] [place] [address] Arturo Cordero MD [facility] HEMATOLOGY [place] [address] 01/30/2025 4:15 PM EDT Office Visit Hematology [place] [address] Arturo Cordero MD [facility] HEMATOLOGY [place] [address] documented as of this encounter Visit Diagnoses Not on filedocumented in this encounter Care Teams Information Systems Specialist Relationship Specialty Start Date End Date Luis E Narayan MD [facility] [address] [place] [address] PCP - General Family Medicine 01/20/22 07/17/22 documented as of this encounter
--- OUTSIDE RECORDS SUMMARY | 2024-03-04 21:21 | XMS_ITS | Encounter Summary ---
Author Organization [facility] [place] [address] Care Team Providers Care Die Repairer Forging Name Role Phone Luis E Narayan MD Primary Care Provider [phone] Encounter Details Date Type Department Care Team (Late st Contact Info) Description 04/21/2022 Telephone Family Medicine at [address] [place] [address] Shannon Ward, RN Social History Tobacco Use Types Packs/Day [...] encounter Miscellaneous Notes * Telephone Encounter - Shannon Ward RN - 04/21/2022 4:24 PM EDT Letter received from [facility] requesting neb supplies with nebulizer order. DME order re-prepped and pended for provider review. documented in this encounter Plan of Treatment Upcoming Encounters Date Type Department Care Team (Late st Contact Info) Description 03/20/2024 9:00 AM EDT TH Visit (TeleHealth) Sleep Center at [facility] [address] [place] [address] Denisse Hardwick, CYBER INTEL PLANNER SLEEP CENTER 03/20/2024 2:00 PM EDT Clinical Support Family Medicine at [facility] [address] [place] [address] Julia Low [facility] 05/01/2024 11:20 AM EDT Appointment Mammography/[place] [address] Rodney Padilla MD [address] [place] [address] 05/01/2024 1:45 PM EDT Office [place] [address] Juanpablo Hernandez MD [facility] DR [place] [address] 01/30/2025 1:30 PM EDT Appointment Hematology and Oncology at [place] [address] 01/30/2025 3:[address] [place] [address] Arturo Cordero MD [facility] DR HEMATOLOGY [place] [address] 01/30/2025 4:15 PM EDT Office Visit Hematology and Oncology at [place] [phone] Arturo Cordero MD [facility] DR HEMATOLOGY [place] [address] documented as of this encounter Visit Diagnoses Diagnosis COPD Simple chronic bronchitis documented in this encounter Care Teams Die Repairer Forging Relationship Specialty Start Date End Date Luis E Narayan MD [facility] [address] [place] [address] PCP - General Family Medicine 01/20/22 07/17/22 documented as of this encounter
--- OUTSIDE RECORDS SUMMARY | 2024-03-04 21:21 | XMS_ITS | Encounter Summary ---
Author Organization [facility] Address [facility] [place] [address] Care Team Providers Care Printmaker Name Role Phone Luis E Narayan MD Primary Care Provider [phone] Encounter Details Date Type Department Care Team (Late st Contact Info) Description 05/13/2022 Orders Only [place]ematology [place] [address] Tito Matta V, [facility] Hematology/[place] [address] Ocular melanoma, left; Renal cell cancer, left Social History Tobacco [...] [facility] [address] [place] [address] Denisse Hardwick, VOLTMETER OPERATOR SLEEP CENTER 03/20/2024 2:00 PM EDT Clinical Support Family Medicine at [facility] [address] [place] [address] Julia Low [facility] 05/01/2024 11:20 AM EDT Appointment Mammography[place] [address] Rodney Padilla MD [address] [place] [address] 05/01/2024 1:45 PM EDT Office [place] [address] Juanpablo Hernandez MD [facility] [place] [address] 01/30/2025 1:30 PM EDT Appointment Hematology and Oncology at [place] [address] 01/30/2025 3:[address] [place] [address] Arturo Cordero MD [facility] DR HEMATOLOGY [place] [address] 01/30/2025 4:15 PM EDT Office Visit Hematology and Oncology at [place] [phone] Arturo Cordero MD [facility] DR HEMATOLOGY [place] [address] documented as of this encounter Results * Research Venipuncture (05/13/2022 1:05 PM EDT) [facility] Research Venipuncture Drawn [facility] Comment: Collection date/time has been modified to: 13:05:00. ??Previous collection date/time: 13:08:00. Corrected from Drawn [NA] on 05/13/22 13:36:44 EDT by Cyndi Dowd Blood 05/13/2022 1:05 PM EDT 05/13/2022 1:25 PM EDT Narrative Resulting Agency Comment Spec In Lab Dar Fernandez MD CHEMISTRY ORDERABLES [facility] [place] [address] documented in this encounter Visit Diagnoses Diagnosis Ocular melanoma, left Renal cell cancer, left documented in this encounter Care Teams Printmaker Relationship Specialty Start Date End Date Luis E Narayan MD [facility] DR [address]-[place] [address] PCP - General Family Medicine 01/20/22 07/17/22 documented as of this encounter
--- OUTSIDE RECORDS SUMMARY | 2024-03-04 21:22 | XMS_ITS | Encounter Summary ---
Author Organization [facility] Address [facility] [place] [address] Care Team Providers Care Controls Designer Name Role Phone Luis E Narayan MD Primary Care Provider [phone]- [phone] Reason for Visit * Reason Onset Date Comments Other 04/07/2022 Order Issues Encounter Details Date Type Department Care Team (Late st Contact Info) Description 04/07/2022 Telephone Family Medicine at [facility] [address] [place] [phone] Luis E Narayan MD [facility] LILI [facility] [address] Other (Order Issues) Social History Tobacco Use Types Packs/Day Years [...] Telephone Encounter - Alejandra Posadas RN - 04/08/2022 11:43 AM EDT Order signed by COS. Faxed to [facility] along with associated documents * Telephone Encounter - Alejandra Posadas RN - 04/08/2022 6:52 AM EDT Prepped/pended DME that will print for faxing. Need Physician or ESTHELA signature. Needs to be faxed to [facility] along with demographics and office notes from 04/05/22. * Telephone Encounter - Luis E Narayan MD - 04/07/2022 8:34 PM EDT Hi S3 RN team - Can you see what needs to be ordered, pend, and sent to COS or covering provider? I will not be in eDH to sign. Thanks rosmery * Telephone Encounter - ReidDixon clark - 04/07/2022 10:07 AM EDT Message: Ani from [facility] calling in regards to orders received for Nebulizer. She statesshe just needs provider to also send in prescription for supplies along with it. Please call with questions/concerns Ask caller their first and last name and relationship to the patient: Ani [facility] Best time to call back: Any Ok to leave a message: Yes Ok to send my- message: x Offered Appointment: x MA/Nurse/Service Advocate Contact contacted via: Message: Yes Call: x Pager: x documented in this encounter Plan of Treatment Upcoming Encounters Date Type Department Care Team (Late st Contact Info) Description 03/20/2024 9:00 AM EDT TH Visit (TeleHealth) Sleep Center at [facility] [address] [place] [phone] Denisse Hardwick, [facility] 03/20/2024 2:00 PM EDT Clinical Support Family Medicine at [facility] [address] [place] [phone] Julia Low, [facility] 05/01/2024 11:20 AM EDT Appointment Mammography/[place] [phone] Rodney Padilla MD [address] [facility] [place], [place] [phone] 05/01/2024 1:45 PM EDT Office [place] [address] Juanpablo Hernandez MD [facility] [place] [address] 01/30/2025 1:30 PM EDT Appointment Hematology and Oncology at [place] [address] 01/30/2025 3:[address] [place] [address] Arturo Cordero MD [facility] H[place] [address] 01/30/2025 4:15 PM EDT Office Visit Hematology and Oncology at [place] [phone] Arturo Cordero MD [facility] [address] [place] [address] documented as of this encounter Visit Diagnoses Diagnosis Simple chronic bronchitis documented in this encounter Care Teams Controls Designer Relationship Specialty Start Date End Date Luis E Narayan MD [facility] [address] PCP - General Family Medicine 01/20/22 07/17/22 documented as of this encounter
--- OUTSIDE RECORDS SUMMARY | 2024-03-04 21:22 | XMS_ITS | Encounter Summary ---
Author Organization [facility] Address [facility] [place] [address] Care Team Providers Care Tank Wagon Driver Name Role Phone Rodney Padilla MD Primary Care Provider [phone]- [phone] Reason for Visit * Reason Onset Date Comments Medication Refill 03/25/2022 Encounter Details Date Type Department Care Team (Late st Contact Info) Description 03/25/2022 Refill Family Medicine at [facility] [address] [place] [address] Cuate Solis PA [facility] DR LIL[address] [place] [address] Social History Tobacco Use Types Packs/Day Years [...] EDT TH Visit (TeleHealth) Sleep Center at [facility] [address] [place] [address] Denisse Hardwick [facility] 03/20/2024 2:00 PM EDT Clinical Support Family Medicine at [facility] [address] [place] [address] Julia Low [facility] 05/01/2024 11:20 AM EDT Appointment Mammography/[place] [phone] Rodney Padilla MD [address] [place] [address] 05/01/2024 1:45 PM EDT Office Visit [place] [address] Juanpablo Hernandez MD [facility] [place] [address] 01/30/2025 1:30 PM EDT Appointment Hematology and Oncology at [place] [address] 01/30/2025 3:[address] Scan at [place] [phone] Arturo Cordero MD [facility] [place] [address] 01/30/2025 4:15 PM EDT Office Visit Hematology [place] [address] Arturo Cordero MD [facility] DR [place] [address] documented as of this encounter Visit Diagnoses Not on filedocumented in this encounter Care Teams Tank Wagon Driver Relationship Specialty Start Date End Date Rodney Padilla MD [address] [place] [place] [address] PCP - General 07/18/22 documented as of this encounter
--- OUTSIDE RECORDS SUMMARY | 2024-03-04 21:22 | XMS_ITS | Encounter Summary ---
Author Organization [facility] [place] [address] Care Team Providers Care Correctional Supervisor Lieutenant Name Role Phone Luis E Narayan MD Primary Care Provider [phone]- [phone] Encounter Details Date Type Department Care Team (Latest Contact Info) Description 03/07/2022 2:01 PM EDT - 03/07/2022 11:59 PM EDT [place] [address] Bloating; Dyspepsia Discharge Disposition: Home Social History Tobacco Use [...] Sig Dispensed Refills Start Date End Date traZODone (Desyrel) 100 mg Tablet Take 1 tablet by mouth nightly. 90 tablet 3 06/26/2020 aspirin EC 81 mg Tablet, Delayed Release (E.C.) Take 81 mg by mouth daily. Alcohol Swabs Pads, MedicatedIndications:Typ e 2 diabetes mellitus with hyperglycemia, without long-term current use of insulin Apply 1 each topically daily. 100 each 3 11/07/2022 11/02/2023 pantoprazole EC (Protonix) 40 mg Tablet, Delayed Release (E.C.) Take 40 mg by mouth daily. 06/16/2022 metFORMIN XR (Glucophage XR) 500 mg Tablet Sustained Release 24 hr Take 2 tablets by mouth 2 times daily (with meals). 360 tablet 3 02/23/2022 02/20/2023 losartan (Cozaar) 100 mg Tablet Take 1 tablet by mouth daily. 30 tablet 02/11/2022 04/14/2022 metoprolol succinate XL (Toprol XL) 25 mg Tablet Sustained Release 24 hr Take 1 tablet by mouth daily. 30 tablet 02/11/2022 03/28/2022 clopidogreL (Plavix) 75 mg Tablet Take 1 tablet by mouth daily. Restart post-operatively on 07/05 30 tablet 02/11/2022 03/25/2022 loratadine (Claritin) 10 mg Tablet Take 1 tablet by mouth daily. 30 tablet 02/11/2022 03/25/2022 sucralfate (Carafate) 100 mg/mL Suspension Take 10 mLs by mouth 4 times daily. 420 mL 5 02/02/2022 04/26/2022 amLODIPine (Norvasc) 5 mg TabletIndications:Essent ial hypertension Take 1 tablet by mouth daily. 90 tablet 3 12/15/2021 03/28/2022 albuteroL (Proventil HFA) 90 mcg/actuation HFA Aerosol InhalerIndications:Simpl e chronic bronchitis Inhale 2 puffs into the lungs every 4 hours as needed for wheeze. Use with spacer 1 each 11 12/10/2021 02/04/2023 FreeStyle Sanjana 2 [place] MiscIndications:diabetes mellitus 1 each by Other route daily. Indications: diabetes mellitus 1 each 10/26/2021 01/23/2023 FreeStyle Sanjana 2 Sensor KitIndications:diabetes mellitus 1 each by Other route every 14 days. Indications: diabetes mellitus 2 kit 10/26/2021 01/23/2023 FreeStyle Lancets 28 gauge MiscIndications:diabetes mellitus 1 each by Other route 3 times daily. Indications: diabetes mellitus 100 each 11 10/11/2021 06/16/2022 fluticasone propionate (Flonase) 50 mcg/actuation [place], Suspension 1 spray by Each Nare route 2 times daily. 16 g 11 09/10/2021 09/25/2022 nitroGLYcerin (Nitrostat) 0.4 mg Tablet, Sublingual Place 1 tablet under the tongue See Admin Instructions. 30 tablet 07/05/2021 09/25/2022 melatonin 5 mg Tablet Take 10 mg by mouth nightly. 04/19/2022 simvastatin (Zocor) 10 mg TabletIndications:Mixed hyperlipidemia Take 1 tablet by mouth daily. 90 tablet 3 06/22/2021 06/19/2022 budesonide-formoteroL (Symbicort) 80-4.5 mcg/actuation HFA Aerosol InhalerIndications:Simpl e chronic bronchitis Inhale 2 puffs into the lungs 2 times daily. 3 each 3 05/26/2021 06/24/2022 simethicone (Gas Relief 80, simethicone,) 80 mg Tablet, ChewableIndications:Bloa ting Take 1 tablet by mouth every 6 hours as needed for Flatulence. 30 tablet 3 02/03/2021 06/16/2022 polyethylene glycoL (Miralax) 17 gram Powder in PacketIndications:Consti pation, unspecified constipation type Take 17 g by mouth daily. 14 each 09/15/2020 09/19/2023 LORazepam (Ativan) 1 mg Tablet Take 1 mg by mouth every evening. 04/19/2022 busPIRone (Buspar) 10 mg Tablet Take 20 mg by mouth 2 times daily. 04/19/2022 lamoTRIgine (LaMICtal) 100 mg TabletIndications:Bipola r affective disorder in remission Take 1 tablet by mouth daily. 90 tablet 3 08/05/2019 06/20/2023 documented as of this encounter Plan of Treatment Upcoming Encounters Date Type Department Care Team (Late st Contact Info) Description 03/20/2024 9:00 AM EDT TH Visit (TeleHealth) Sleep Center at [facility] [address] [place] [address] Denisse Hardwick, [facility] 03/20/2024 2:00 PM EDT Clinical Support Family Medicine at [facility] [address] [place] [phone] Julia Low, [facility] 05/01/2024 11:20 AM EDT Appointment Mammography/[place] [address] Rodney Padilla MD [address] [place] [address] 05/01/2024 1:45 PM EDT Office [place] [phone] Juanpablo Hernandez MD [facility] [place] [address] 01/30/2025 1:30 PM EDT Appointment Hematology [place] [address] 01/30/2025 3:[address] [place] [address] Arturo Cordero MD [facility] DR [place] [address] 01/30/2025 4:15 PM EDT Office Visit Hematology [place] [address] Arturo Cordero MD [facility] [address] [place] [address] documented as of this encounter Procedures Procedure Name Priority Date/Time Associated Diagnosis Comments HC STOOL CULTURE Routine 03/07/2022 11:2 0 AM EDT Bloating Dyspepsia CAMPYLOBACTER ANTIGEN Routine 03/07/2022 11:20 AM EDT Bloating Dyspepsia SHIGA TOXIN ASSAY Routine 03/07/2022 11: 20 AM EDT Bloating Dyspepsia STOOL CULTURE Routine 03/07/2022 11:20 AM EDT Bloating Dyspepsia documented in this encounter Results * Shiga Toxin Detection (03/07/2022 11:20 AM EDT) Shiga Toxin Assay EIA Negative for Shiga Toxin 1 EIA Negative for Shiga Toxin 2 [facility] Stool 03/07/2022 11:2 0 AM EDT 03/07/2022 2:22 PM EDT Narrative Resulting Agency Comment Spec In Lab Alejandra Pop [employer] - G ENERAL ORDERABLES [facility] [place] [address] * Campylobacter Antigen (03/07/2022 11:20 AM EDT) Campylobacter Ag Immunoassay Negative for Campylobacter Antigen [facility] Stool 03/07/2022 11:2 0 AM EDT 03/07/2022 2:22 PM EDT Narrative Resulting Agency Comment Spec In Lab Alejandra Pop [employer] [facility] - G ENERAL ORDERABLES Performing Organization Address City/[facility]/ZIP Co de Phone Number [facility] [place] [address] * Stool culture (03/07/2022 11:20 AM EDT) Stool Culture No enteric pathogens isolated [facility] Stool 03/07/2022 11:2 0 AM EDT 03/07/2022 2:22 PM EDT Narrative Resulting Agency Comment Spec In Lab Alejandra Pop [employer] [facility] - G ENERAL ORDERABLES Performing Organization Address City/[facility]/ZIP Co de Phone Number [facility] [place] [address] documented in this encounter Visit Diagnoses Diagnosis Bloating Flatulence, eructation, and gas pain Dyspepsia Dyspepsia and other specified disorders of function of stomach documented in this encounter Care Teams Correctional Supervisor Lieutenant Relationship Specialty Start Date End Date Luis E Narayan MD [facility] DR [address] [place] [address] PCP - General Family Medicine 01/20/22 07/17/22 documented as of this encounter
--- OUTSIDE RECORDS SUMMARY | 2024-03-04 21:22 | XMS_ITS | Encounter Summary ---
[place] [address] Care Team Providers Care Server Programmer Name Role Phone Luis E Narayan MD Primary Care Provider [phone]- [phone] Encounter Details Date Type Department Care Team (Late st Contact Info) Description 12/14/2021 Telephone [place] [phone] Gris Galloway, RN Social History Tobacco Use Types Packs/Day [...] encounter Miscellaneous Notes * Telephone Encounter - Gris Galloway RN - 12/14/2021 4:31 PM EDT Received call from patient who wanted to discuss stomach issues. Alize states that she's been having generalized abdominal pressure and bloating which worsens after eating. from breasts to belly button. States that sometimes she has to urinate frequently due to pressure. EGD and colonoscopy performed last year at [facility]. Was seen in [facility] ED recently and PPI changed from Omeprazole to Pantoprazole. She had a GES done which appears to be normal based on ED notes scanned into chart. She was also prescribed Carafate which she finds helpful. Denies constipation. Patient thinks that Dr. Narayan will be referring her to motility service for further eval. Advised I would pass on update to provider Ashlyn Severino. documented in this encounter Plan of Treatment Upcoming Encounters Date Type Department Care Team (Late st Contact Info) Description 03/20/2024 9:00 AM EDT TH Visit (TeleHealth) Sleep Center at [facility] [address] [place] [phone] Denisse Hardwick, CRYPTOLOGIC TECHNICIAN OPERATOR[facility] 03/20/2024 2:00 PM EDT Clinical Support Family Medicine at [facility] [address] [place] [phone] Julia Low, [facility] 05/01/2024 11:20 AM EDT Appointment Mammography/[place] [address] Rodney Padilla MD [address] [place] [address] 05/01/2024 1:45 PM EDT Office Visit Ophthalmology at [place] [phone] Juanpablo Hernandez MD [facility] [place] [address] 01/30/2025 1:30 PM EDT Appointment Hematology and Oncology at [place] [phone] 01/30/2025 3:[address] Scan at [place] [phone] Arturo Cordeor MD [facility] HEMATOLOGY [place] [address] 01/30/2025 4:15 PM EDT Office Visit Hematology and Oncology at [place] [phone] Arturo Cordero MD [facility] [place]OLOGY [place] [address] documented as of this encounter Visit Diagnoses Not on filedocumented in this encounter Care Teams Server Programmer Relationship Specialty Start Date End Date Luis E Narayan MD [facility] [place] [address] PCP - General Family Medicine 03/26/19 01/19/22 documented as of this encounter
--- OUTSIDE RECORDS SUMMARY | 2024-03-04 21:22 | XMS_ITS | Encounter Summary ---
Author Organization [facility] Address [facility] [place] [address] Care Team Providers Care Grade Tamper Name Role Phone Luis E Narayan MD Primary Care Provider [phone]- [phone] Reason for Visit * Reason Comments Follow-up f/u from hospital vi sit Encounter Details Date Type Department Care Team (Late st Contact Info) Description 04/05/2022 11:30 AM EDT Office Visit Family Medicine at [facility] [address] [place] [address] Earl Valdez MD [facility] [address] Frequency of micturition; COPD; Yeast vaginitis Social History Tobacco Use Types Packs/Day Years [...] Sign Reading Time Taken Comments Blood Pressure 164/73 04/05/2022 11:30 AM EDT Pulse 70 04/05/2022 11:30 AM EDT Temperature 36.2 ??C (97.2 ??F) 04/05/2022 11:30 AM E DT Respiratory Rate 18 04/05/2022 11:30 AM EDT Oxygen Saturation 99% 04/05/2022 11:30 AM EDT Inhaled Oxygen Concentration - - Weight 108.9 kg (240 lb) 04/05/2022 11:30 AM EDT Height 161.3 cm (5' 3.5) 04/05/2022 11:30 AM ED T Body Mass Index 41.85 04/05/2022 11:30 AM EDT documented in this encounter Patient Instructions * Patient Instructions* Earl Valdez MD - 04/05/2022 11:30 AM EDT I will prescribe the albuterol neb machine Continue the prednisone, levofloxacin and your other medications Do attempt to quit smoking -- you may use your nicotine patches documented in this encounter Progress Notes * Earl Valdez MD - 04/05/2022 11:30 AM EDT S: Patient reports coughing and wheezing for about 10 days. She has had multiple urgent care and emergency room visits near her home in [facility]. On 03/28, she was prescribed Augmentin and doxycycline and prednisone 20 mg daily x5. She is finished both of the antibiotic prescriptions. On 03/31, she went to an emergency room because she was not feeling better and was wheezing and she received a nebulizer treatment. She returned to an emergency room on 04/03 and was given more nebulizers andif she says that a chest x-ray showed right pneumonia. She was begun on levofloxacin and her prednisone was increased to 60 mg daily with a taper. Patient does smoke 1 pack of cigarettes per day and has a history of obstructive lung disease. Patient Active Problem List Diagnosis Code ??? 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 Altered [...] osteoarthritis of both knees M17.0 Current Outpatient Medications: ??? clopidogreL (Plavix) 75 mg Tablet, Take 1 tablet by mouth daily., Disp: 90 tablet, Rfl: 3 ??? loratadine (Claritin) 10 mg Tablet, Take 1 tablet by mouth daily., Disp: 90 tablet, Rfl: 3 ??? metoprolol succinate XL (Toprol XL) 25 mg Tablet Sustained Release 24 hr, Take 1 tablet by mouth daily., Disp: 90 tablet, Rfl: 3 ??? amLODIPine (Norvasc) 5 mg Tablet, Take 1 tablet by mouth daily., Disp: 90 tablet, Rfl: 3 ??? pantoprazole EC (Protonix) 40 mg Tablet, Delayed Release (E.C.), Take 40 mg by mouth daily., Disp: , Rfl: ??? metFORMIN XR (Glucophage XR) 500 mg Tablet Sustained Release 24 hr, Take 2 tablets by mouth 2 times daily (with meals)., Disp: 360 tablet, Rfl: 3 ??? losartan (Cozaar) 100 mg Tablet, Take 1 tablet by mouth daily., Disp: 30 tablet, Rfl: 0 ??? sucralfate (Carafate) 100 mg/mL Suspension, Take 10 mLs by mouth 4 times daily., Disp: 420 mL, Rfl: 5 ??? albuteroL (Proventil HFA) 90 mcg/actuation HFA Aerosol Inhaler, Inhale 2 puffs into the lungs every 4 hours as needed for wheeze. Use with spacer, Disp: 1 each, Rfl: 11 ??? FreeStyle Sanjana 2 [place] Misc, 1 each by Other route daily. Indications: diabetes mellitus, Disp: 1 each, Rfl: 0 ??? FreeStyle Sanjana 2 Sensor Kit, 1 each by Other route every 14 days. Indications: diabetes mellitus, Disp: 2 kit, Rfl: 0 ??? FreeStyle Lancets 28 gauge Misc, 1 each by Other route 3 times daily. Indications: diabetes mellitus, Disp: 100 each, Rfl: 11 ??? fluticasone propionate (Flonase) 50 mcg/actuation [place], Suspension, 1 spray by Each Nare route2 times daily., Disp: 16 g, Rfl: 11 ??? Alcohol Swabs Pads, Medicated, Apply 1 each topically daily., Disp: 100 each, Rfl: 3 ??? nitroGLYcerin (Nitrostat) 0.4 mg Tablet, Sublingual, Place 1 tablet under the tongue See Admin Instructions., Disp: 30 tablet, Rfl: 0 ??? melatonin 5 mg Tablet, Take by mouth., Disp: , Rfl: ??? simvastatin (Zocor) 10 mg Tablet, Take 1 tablet by mouth daily., Disp: 90 tablet, Rfl: 3 ??? budesonide-formoteroL (Symbicort) 80-4.5 mcg/actuation HFA Aerosol Inhaler, Inhale 2 puffs intothe lungs 2 times daily., Disp: 3 each, Rfl: 3 ??? simethicone (Gas Relief 80, simethicone,) 80 mg Tablet, Chewable, Take 1 tablet by mouth every 6 hours as needed for Flatulence., Disp: 30 tablet, Rfl: 3 ??? polyethylene glycoL (Miralax) 17 gram Powder in Packet, Take 17 g by mouth daily., Disp: 14 each, Rfl: 0 ??? traZODone (Desyrel) 100 mg Tablet, Take 1 tablet by mouth nightly., Disp: 90 tablet, Rfl: 3 ??? LORazepam (Ativan) 1 mg Tablet, Take 1 mg by mouth every evening., Disp: , Rfl: ??? busPIRone (Buspar) 10 mg Tablet, Take 20 mg by mouth 2 times daily., Disp: , Rfl: ??? lamoTRIgine (LaMICtal) 100 mg Tablet, Take 1 tablet by mouth daily., Disp: 90 tablet, Rfl: 3 ??? aspirin EC 81 mg Tablet, Delayed Release (E.C.), Take 81 mg by mouth daily., Disp: , Rfl: O: BP 164/73 (BP Location (NBP): Right arm, Patient Position: Sitting, BP Cuff Sizes: Large Adult (32-43 cm)) Pulse 70 Temp 36.2 ??C (97.2 ??F) (Temporal) Resp 18 Ht 161.3 cm (5' 3.5) Wt 108.9 kg (240 lb) SpO2 99% BMI 41.85 kg/m?? Patient is not in respiratory distress while sitting at this appointment and her saturation is 99%.Oropharynx noninjected with midline uvula. Neck supple without tender adenopathy. Sinuses nontender. Heart regular rate and rhythm without murmur. Lungs clear with scattered wheezes in all lung hall. No consolidation or rales or rhonchi. A/P: #1 COPD exacerbation/right pneumonia according to the patient's report of her x-ray from 2 days ago. It seems to me that she is on maximum outpatient therapy with prednisone and levofloxacin andnebulizers. She needs a prescription for a nebulizer machine for albuterol because she is currentlyusing her nephew's. I will send a prescription for this to [facility] in [facility]. She will continue on these current medications and hope for improvement day by day. I pointed out that if her condition worsens that she is feeling short of breath, that she might need inpatient treatment. 2. Vaginitis. Patient says that she has a history of vaginitis and is currently experiencing a whitish discharge with vaginal itching. She requested a prescription for an antifungal vaginal cream Estrella will prescribe miconazole for this. We will check UA because patient also reports urinary frequency without dysuria or fever. On the day of this encounter, I spent a total of at least 30 minutes ([id number]) providing this patient's care. This includes time spent [id number] with the patient performing evaluation, examination, and counseling . It also includes non [id number] time preparing to see the patient, coordinating care, and documenting clinical information in the electronic health record. documented in this encounter Plan of Treatment Upcoming Encounters Date Type Department Care Team (Late st Contact Info) Description 03/20/2024 9:00 AM EDT TH Visit (TeleHealth) Sleep Center at [facility] [address] [place] [address] Denisse Hardwick, [facility] 03/20/2024 2:00 PM EDT Clinical Support Family Medicine at [facility] [address] [place] [phone] Julia Low [facility] 05/01/2024 11:20 AM EDT Appointment Mammography/[place] [address] Rodney Padilla MD [address] [place] [address] 05/01/2024 1:45 PM EDT Office Visit Ophthalmology at [place] [phone] Juanpablo Hernandez MD [facility] [place] [address] 01/30/2025 1:30 PM EDT Appointment Hematology [place] [address] 01/30/2025 3:[address] Scan at [place] [phone] Arturo Cordero MD [facility] DR HEMATOLOGY [place] [address] 01/30/2025 4:15 PM EDT Office Visit Hematology [place] [phone] Arturo Cordero MD [facility] DR HEMATOLOGY [place] [address] documented as of this encounter Procedures Procedure Name Priority Date/Time Associated Diagnosis Comments URINALYSIS MICROSCOPIC EXAM Routine 04/05/2022 12:41 PM EDT URINALYSIS WITH REFLEX CULTURE Routine 04/05/2022 12:41 PM EDT Frequency of micturition URINE CULTURE Routine 04/05/2022 12:41 PM EDT documented in this encounter Results * (ABNORMAL) Urine culture (04/05/2022 12:41 PM EDT) Urine Culture 10,000-49,000 cfu/ml Escherichia coli 1,000-9,000 cfu/ml mixed mucosal nimisha (A) [facility] Organism Escherichia coli(A) [facility] Urine NS 04/05/2022 12:4 1 PM EDT 04/05/2022 10:03 PM EDT Narrative Resulting Agency Comment Spec In Lab Organism Antibiotic Method Susceptibility Escherichia coli Amikacin VITEK 2 METHOD Sensitive Escherichia coli Ampicillin + Sulbactam VITEK 2 METHOD Resistant Escherichia coli Aztreonam VITEK 2 METHOD Sensitive Escherichia coli Cefazolin VITEK 2 METHOD Resistant Escherichia coli Cefepime VITEK 2 METHOD <=1: Sensitive Escherichia coli Ceftazidime VITEK 2 METHOD <=1: Sensitive Escherichia coli Ceftriaxone VITEK 2 METHOD Sensitive Escherichia coli Ertapenem VITEK 2 METHOD Sensitive Escherichia coli Gentamicin VITEK 2 METHOD Sensitive Escherichia coli Levofloxacin VITEK 2 METHOD Resistant Comment: Levofloxacin and Ciprofloxacin may not adequately treat infections in critically ill patients even when isolates test susceptible in the laboratory. Contact Infectious Disease before using in critically ill patients. Escherichia coli Meropenem VITEK 2 METHOD <=0.25: Sensitive Escherichia coli Nitrofurantoin VITEK 2 METHOD Sensitive Escherichia coli Piperacillin/Tazobactam VITEK 2 METHO D >=128: Resistant Escherichia coli Tetracycline VITEK 2 METHOD Sensitive Escherichia coli Tobramycin VITEK 2 METHOD Sensitive Escherichia coli Trimethoprim/Sulfa VITEK 2 METHOD Sensitive Earl Valdez MD MICROBIOLOGY - GENER AL ORDERABLES [facility] [place] [address] * (ABNORMAL) Urinalysis Microscopic Exam (04/05/2022 12:41 PM EDT) RBC, Urine 3 0 - 4 /HPF [facility] WBC, Urine 10(H) 0 - 5 /HPF [facility] Bacteria, Urine Rare(A) None /HPF [facility] Squamous Epithelial Cells Raw Data, Urine 2 <=4 /HPF [facility] Urine NS 04/05/2022 12:4 1 PM EDT 04/05/2022 4:36 PM EDT Narrative Resulting Agency Comment Spec In Lab Earl Valdez MD URINE ORDERABLES [facility] [place] [address] * (ABNORMAL) Urinalysis with reflex Culture (04/05/2022 12:41 PM EDT) Glucose, Urine Dipstick 100(A) Negative mg/dL [facility] Protein, Urine Dipstick Negative Negative mg/dL [facility] Bilirubin, Urine Dipstick Negative Negative mg/dL [facility] Comment: Clinical correlation required for positive Urine Bilirubin results as false positive may occur with some drugs and drug related products. If a false positive is suspected a serum total bilirubin should be considered if clinically indicated. Urobilinogen, Urine Dipstick Normal Normal mg/dL [facility] pH, Urn (dipstick) 5.5 5.0 - 8.0 [facility] Blood, Urine Dipstick Negative Negative mg/dL [facility] Ketone, Urine Dipstick Negative Negative mg/dL [facility] Nitrite, Urine Dipstick Negative Negative [facility] Leukocytes, Urine Dipstick Moderate(A) Negative [facility] Appearance, Urine Dipstick Clear Clear [facility] Specific [place] Urine Automated 1.011 1.005 - 1.030 [facility] Color, Urine Dipstick Yellow Yellow [facility] Reflex to Culture Yes [facility] Urine NS 04/05/2022 12:4 1 PM EDT 04/05/2022 4:36 PM EDT Narrative Resulting Agency Comment Spec In Lab Earl Valdez MD URINE ORDERABLES [facility] [place] [address] documented in this encounter Visit Diagnoses Diagnosis Frequency of micturition Urinary frequency COPD Simple chronic bronchitis Yeast vaginitis Candidiasis of vulva and vagina documented in this encounter Care Teams Grade Tamper Relationship Specialty Start Date End Date Luis E Narayan MD [facility] [address] [address] PCP - General Family Medicine 01/20/22 07/17/22 documented as of this encounter
--- OUTSIDE RECORDS SUMMARY | 2024-03-04 21:22 | XMS_ITS | Encounter Summary ---
Author Organization [facility] Address [facility] [place] [address] Care Team Providers Care Electronic Warfare Technical Name Role Phone Luis E Narayan MD Primary Care Provider [phone]- [phone] Reason for Visit * Reason Onset Date Comments Medication Refill 12/10/2021 Encounter Details Date Type Department Care Team (Late st Contact Info) Description 12/10/2021 Refill Family Medicine at [facility] [address] [place] [address] Luis E Narayan MD [facility] [address] [place] [address] COPD Social History Tobacco Use Types Packs/Day [...] Telephone Encounter - Jade Kruse MA - 12/10/2021 11:35 AM EDT Prescription Refill Request Prescription(s) Requested: Requested Prescriptions Pending Prescriptions Disp Refills ??? albuteroL (Proventil HFA) 90 mcg/actuation HFA Aerosol Inhaler 1 each 11 Sig: Inhale 2 puffs into the lungs every 4 hours as needed for wheeze. Use with spacer Date of Encounter last in This Dept (If over a year and no apt scheduled send to secretaries to schedule): 08/20/2021 Robin Next Encounter in This Dept: 12/14/2021 Date of Last Refill (for each medication): 10/09/2020 Medication category req. lab studies documented in this encounter Plan of Treatment Upcoming Encounters Date Type Department Care Team (Late st Contact Info) Description 03/20/2024 9:00 AM EDT TH Visit (TeleHealth) Sleep Center at [facility] [address] [place] [phone] Denisse Hardwick, [facility] 03/20/2024 2:00 PM EDT Clinical Support Family Medicine [facility] [address] [place] [phone] Julia Low, [facility] 05/01/2024 11:20 AM EDT Appointment Mammography/[place] [address] Rodney Padilla MD [address] [facility] [place] [address] 05/01/2024 1:45 PM EDT Office Visit Ophthalmology at [place] [phone] Juanpablo Hernandez MD [facility] [place] [address] 01/30/2025 1:30 PM EDT Appointment Hematology and Oncology at [place] [phone] 01/30/2025 3:[address] Scan at [place] [phone] Arturo Cordero MD [facility] [place] [address] 01/30/2025 4:15 PM EDT Office Visit Hematology and Oncology at [place] [phone] Arturo Cordero MD [facility] [place] [address] documented as of this encounter Visit Diagnoses Diagnosis COPD Simple chronic bronchitis documented in this encounter Care Teams Electronic Warfare Technical Relationship Specialty Start Date End Date Luis E Narayan MD [facility] [address] [place] [address] PCP - General Family Medicine 03/26/19 01/19/22 documented as of this encounter
--- OUTSIDE RECORDS SUMMARY | 2024-03-04 21:22 | XMS_ITS | Encounter Summary ---
[place] [address] Care Team Providers Care Cinnamon Grinder Name Role Phone Luis E Narayan MD Primary Care Provider [phone] Reason for Referral * Diagnostic Test (Routine) - Closed Specialty Diagnoses / Procedures Referred By Contac t Referred To Contact Radiology Diagnoses Malignant melanoma of conjunctiva, left Procedures CT Chest Abdomen Pelvis w Contrast (Generic) Leandra Black APRN [facility] [place] [address] [facility] [place] [address] Referral ID Status Reason Start Date Expiration Date V isits Requested Visits Authorized [id number] Closed Specialty Service Requested 12/24/2021 06/25/2023 1 1 * Diagnostic Test (Routine) - Closed Specialty Diagnoses / Procedures Referred By Contac t Referred To Contact Radiology Diagnoses Malignant melanoma of conjunctiva, left Procedures CT Neck Soft Tissue w Contrast (Generic) Leandra Black APRN [facility] [address] [place] [address] [facility] [place] [address] Referral ID Status Reason Start Date Expiration Date V isits Requested Visits Authorized [id number] Closed Specialty Service Requested 12/24/2021 06/25/2023 1 1 Reason for Visit * Reason Comments Follow-up Encounter Details Date Type Department Care Team (Late st Contact Info) Description 12/23/2021 3:15 PM EDT Office Visit [place] [address] Arturo Cordero MD [facility] [address] [place] [address] Leandra Black APRN [facility] [address] [place] [address] Malignant melanoma of conjunctiva, left; History of renal cell cancer Social History Tobacco Use Types Packs/Day [...] Sign Reading Time Taken Comments Blood Pressure 133/87 12/23/2021 3:19 PM EDT Pulse 79 12/23/2021 3:19 PM EDT Temperature 36.3 ??C (97.3 ??F) 12/23/2021 3:19 PM ED T Respiratory Rate 20 12/23/2021 3:19 PM EDT Oxygen Saturation 98% 12/23/2021 3:19 PM EDT Inhaled Oxygen Concentration - - Weight 109.8 kg (242 lb) 12/23/2021 3:19 PM EDT Height 160.5 cm (5' 3.19) 12/23/2021 3:19 PM ED T Body Mass Index 42.61 12/23/2021 3:19 PM EDT documented in this encounter Progress Notes * Leandra Black, KATHIA - 12/23/2021 3:15 PM EDT Images from the original note were not included. [facility] FOLLOW UP NOTE REFERING PHYSICIAN: Dr. [...] management - fall 2018: saw a new strategic consultant and was referred to Dr. 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 Medina - 03/31/2020: saw her strategic consultant Dr. Hernandez and was noted to have [...] 12/23/2021 shows no evidence of metastatic disease HPI: Patience Manjarrez is a 61 y.o. female with past medical history of left-sided renal cell carcinoma s/ppartial nephrectomy, type II diabetes, coronary artery disease, hyperlipidemia, hypertension, depression/anxiety, and TITO, who is presented to the oncology clinic on 05/26/2020 to discuss evaluation/management for her conjunctival melanoma. INTERVAL HISTORY: Patience presents in surveillance of conjunctival melanoma with surveillance CT scan. Overall she is doing well. She is seeing Dr. Hernandez regularly for exam and assessment. She does occasionally still have blurryvision and eye discomfort to her L eye. She is also being seen by dermatology and has an appointment in February. She continues to smoke. She has been having problems with GI and will be seeing GI in February as well. She states she has primarily been having. Bloating, lack of appetite and GERD symptoms. She denies any new masses or lesions [...] uses inhalerswith good effect ??? Atherosclerosis of [place] coronary artery of [place] heart with angina pectoris 10/09/2007 History of [...] 3.47) performed by Juanpablo Hernandez MD at [facility] ??? PRO EXCIS CORNEA LESN Left 05/14/2020 EXCISION OF LESION, CORNEA, EXCEPT PTERYGIUM (WRVU 7.5) performed by Juanpablo Hernandez MD at [facility] ??? PRO LAP, PARTIAL NEPHRECTOMY Left 06/28/2019 LAPAROSCOPY, PARTIAL NEPHRECTOMY, ROBOTIC ASSIST (WRVU 27.41) performed by Avila Medina MD at [facility] MA[facility] OR ??? PRO PLACE AMNIOTIC MEMBRANE OCULAR SURFACE;SINGLE LAYER SUTURED Left 05/14/2020 PLACEMENT OF AMNIOTIC MEMBRANE ON THE OCULAR SURFACE,SINGLE LAYER,SUTURED (WRVU 2.5) performed by Juanpablo Hernandez MD at [facility] MEDS: Alcohol Swabs, LORazepam, albuteroL, amLODIPine, aspirin EC, budesonide- formoteroL, busPIRone, clopidogreL, flash glucose scanning reader, flash glucose sensor, fluticasone propionate, lamoTRIgine, lancets, loratadine, losartan, melatonin, metFORMIN, metoprolol succinate XL, nitroGLYcerin, omeprazole, polyethylene glycoL, simethicone, simvastatin, sucralfate, and traZODone ALLERGY: Allergies Allergen Reactions ??? Codeine Phosphate Nausea And Vomiting ??? Erythromycin Base Nausea Only ??? Azithromycin ??? Ibuprofen Stomach upset ??? Lisinopril cough ??? Nsaids (Non-Steroidal Anti-Inflammatory Drug) Nausea And Vomiting FAMILY HX: Family History Problem Relation Age of Onset ??? Medical History Unknown Other ??? Uterine Cancer Mother 76 hysterectomy age 76 ??? Heart Disease Father ??? Breast Cancer Maternal Aunt ??? Glaucoma Neg Hx ??? Macular Degeneration [...] on file Tobacco Use ??? Smoking status: Current Every Day Smoker Packs/day: 1.00 Years: 40.00 Pack years: 40.00 Types: Cigarettes ??? Smokeless tobacco: Never Used ??? Tobacco comment: Not today. Very anxious Vaping Use ??? Vaping Use: Never used Substance and Sexual Activity ??? Alcohol use: No ??? Drug use: No ??? Sexual activity: Not on file Other Topics Concern ??? Not on file Social History Narrative legally from spouse 2013. 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 50+ pack/ yr hx No alcohol One daughter who is a positive support Social Determinants of Health Financial Resource Strain: Medium Risk ??? Difficulty of Paying Living Expenses: Somewhat hard Food Insecurity: No Food Insecurity ??? Worried About Running Out of Food in the Last Year: Never true ??? Ran Out of Food in the Last Year: Never true Transportation Needs: No Transportation Needs ??? Lack of Transportation (Medical): No ??? Lack of Transportation (Non-Medical): No Physical Activity: Inactive ??? Days of Exercise per Week: 0 days ??? Minutes of Exercise per Session: 10 min Housing Stability: Low Risk ??? Unable to Pay for Housing in the Last Year: No ??? Number of Places Lived in the Last Year: 1 ??? Unstable Housing in the Last Year: No Family history: - 2 brother - renal cell carcinoma - brother- pancreatic cancer - mother - uterine cancer in her 70s - maternal aunt - breast cancer - maternal aunt - renal cancer PHYSICAL EXAM: PS=1 close to 0 General: not in acute distress. in good mood and spirits BP 133/87 (Patient Position: Sitting) Pulse 79 Temp 36.3 ??C (97.3 ??F) (Temporal) Resp 20 Ht 160.5 cm (5' 3.19) Wt 109.8 kg (242 lb) SpO2 98% BMI 42.61 kg/m?? Eyes: Not icteric, No obvious injection [...] LABS: CBC unremarkable CMP unremarkable except glucose 190 and ALT 35 LDH 219 IMAGING STUDIES: CT Chest Abdomen Pelvis 12/23/2021 1. No [...] complete on 09/18/2020 according to the patient. Today Patience's surveillance CT scans show no evidence of metastatic disease, 1 year from completing treatment with Mitomycin-C eyedrops. She continues to see Dr. Hernandez, her PCP and dermatology regularly. The following was reviewed with Patience: ? Surveillance Schedule: o Alternating ultrasounds and scans (either CT or PET CT scan) every 3 months for at least the first 2 years. After 2 years, scan intervals will be spread out as determined by the oncologist until atleast the 5 year yomi. - She will have a stand alone US of her neck in 3 mos and will return in [address] scan. o Blood work to check blood counts, electrolytes, kidney function, liver function and sometimes thyroid function will occur with scans. o An appointment can be made at any time between scheduled appointments for any new concerns or symptoms. ? Dermatology follow up for full skin exams should occur at least annually, or as recommended by your help desk coordinator. o Sun Exposure: Use broad spectrum, 30 SPF or higher, water resistant sunscreen with reapplication every 2 hours OR SPF clothing and limit your amount of direct sun exposure when possible. o Regular skin and lymph node self-examination should be performed. Please report any new lesions, lumps or bumps of concern to your help desk coordinator or oncology team. ? You should be seen regularly by your primary care provider for preventative health screening, including cancer screening (colonoscopy, mammograms etc.) ? Quitting smoking (if applicable) o As needed a referral to smoking cessation specialists can be made. The pt was in agreement with the plan outlined above and was instructed to call with any new symptoms or concerns. Leandra Black DNP, UTILITY LOCATE TECHNICIAN Return in 3 mos for stand alone US RTC in 6 mos with labs, clinic appointment and CT scan documented in this encounter Plan of Treatment Upcoming Encounters Date Type Department Care Team (Late st Contact Info) Description 03/20/2024 9:00 AM EDT TH Visit (TeleHealth) Sleep Center at [facility] [address] [place] [address] Denisse Hardwick, [facility] 03/20/2024 2:00 PM EDT Clinical Support Family Medicine [facility] [address] [place] [address] Julia Low, [facility] 05/01/2024 11:20 AM EDT Appointment Mammography/[place] [phone] Rodney Padilla MD [address] [place] [address] 05/01/2024 1:45 PM EDT [place] [address] Juanpablo Hernandez MD [facility] [place] [address] 01/30/2025 1:30 PM EDT Appointment [place] [phone] 01/30/2025 3:[address] [place] [phone] Arturo Cordero MD [facility] HEMATOLOGY AND ONCOLOGY [place], [place] [id number] 01/30/2025 4:15 PM EDT Office Visit [place] [address] Arturo Cordero MD [facility] [place] [address] documented as of this encounter Results * CT Chest Abdomen [...] who have questions please contact the health career placement specialist that requested your imaging first. ? Narrative [...] patients who have questions please contactthe health career placement specialist that requested your imaging first. Leandra Black APRN IM CT ORDERABLES * CT Neck Soft Tissue [...] who have questions please contact the health career placement specialist that requested your imaging first. ? Electronically signed by: Chuy Delgado MD, [facility] ([phone]), at 06/24/2022 11:34 AM Narrative 06/24/2022 11:34 AM EST EXAMINATION: CT [...] patients who have questions please contactthe health career placement specialist that requested your imaging first. Leandra Black APRN IMG CT ORDERABLES * US Soft Tissue Head Or Neck (03/21/2022 1:36 PM EDT) Anatomical Region Laterality Modality Ultrasound 03/21/2022 1:33 PM EDT Impressions 03/21/2022 2:05 PM EDT Normal sonographic appearance of bilateral cervical lymph nodes. I have personally reviewed the image(s) and the resident's interpretation and agree with the findings, Roland Izaguirre MD at 03/21/2022 1:56 PM Electronically signed by: oRland Izaguirre MD, [facility] ([phone]), at 03/21/2022 1:56 PM Thank you for letting us participate in the care of this patient. If you are a health care provider and have any questions regarding this report, please contact the number above. For patients who have questions, please contact the health career placement specialist that requested your imaging first. ? Roland Izaguirre, Staff Physician Electronically Signed Final Report ?? 03/21/2022 02:04 pm Narrative 03/21/2022 2:05 PM EDT Ultrasound Lymph Node ? (Signed Final 03/21/2022 02:04 pm) Report PATIENT INFO: ID #: ? [id number] ?: ??[birth year] (61 yrs)(F) Name: ? PATIENCE MANJARREZ ? Visit Date: 03/21/2022 01:33 pm PERFORMED BY: Performed By: ? Stephany Pittman RDMS Attending: ?Dmitriy COLVIN, Roland Fung Resident: ? Rojelio COLVIN, Gia Davalos Referred By: ?LEANDRA BLACK Location: ? [place] SERVICE(S) PROVIDED: USTN - Soft Tissue Neck or Head - [id number] ? [id number] INDICATIONS: History of left eye conjunctival melanoma s/p resection, sureviellance imaging of left neck ran basin --------- FINDINGS: --------- Title: ? Ultrasound Lymph Node Report Findings: ?Several visualized lymph nodes, largest measures ?1.6 cm left level 2. Procedure Note Roland Izaguirre MD - 03/21/2022 Ultrasound Lymph Node (Signed Final 03/21/2022 02:04 pm) Report PATIENT INFO: ID #: [id number] : 58 (61 yrs)(F) Name: PATIENCE MANJARREZ Visit Date: 03/21/2022 01:33 pm PERFORMED BY: Performed By: Stephany Pittman RDMS Attending: Dmitriy COLVIN, Roland Fung Resident: Gia Serrato MD Referred By: LEANDRA BLACK Location: [place] SERVICE(S) PROVIDED: USTN - Soft Tissue Neck or Head - [id number] INDICATIONS: History of left eye conjunctival melanoma s/p resection, sureviellance imaging of left neck ran basin --------- FINDINGS: --------- Title: Ultrasound Lymph Node Report Findings: Several visualized lymph nodes, largest measures 1.6 cm left level 2. IMPRESSION Normal sonographic appearance of bilateral cervical lymph nodes. I have personally reviewed the image(s) and the resident's interpretation and agree with the findings, Roland Izaguirre MD at 03/21/2022 1:56 PM Electronically signed by: Roland Izaguirre MD, [facility] ([phone]), at 03/21/2022 1:56 PM Thank you for letting us participate in the care of this patient. If you are a health care provider and have any questions regarding this report, please contact the number above. For patients who have questions, please contact the health career placement specialist that requested your imaging first. Roland Izaguirre, Staff Physician Electronically Signed Final Report 03/21/2022 02:04 pm Leandra Black UTILITY LOCATE TECHNICIAN IMG US GEN ORDERAB LES * Lactate Dehydrogenase (12/23/2021 12:45 PM EDT) Lactate Dehydrogenase 219 110 - 220 unit/L [facility] Blood 12/23/2021 12:4 5 PM EDT 12/23/2021 1:04 PM EDT Narrative Resulting Agency Comment Spec In Lab Leandra Black APRN CHEMISTRY ORDERABL ES [facility] [place] [address] * (ABNORMAL) Comprehensive metabolic panel (non-fasting) (12/23/2021 12:45 PM EDT) Glucose 190 65 - 199 mg/dL [facility] Comment:Diabetes: >=200 mg/d L plus symptoms Blood Urea Nitrogen 13 8 - 18 mg/dL [facility] Creatinine 0.88 0.70 - 1.20 mg/dL [facility] Sodium 139 135 - 145 mmol/L [facility] Potassium 4.4 3.5 - 5.0 mmol/L [facility] Comment: Please note: ??Patients with WBC >100,000 may have falsely elevated Potassium levels. ??For accurate Potassium quantification in these patients send serum separator tube (gold top) for subsequent determinations. ??Contact the Clinical Chemistry Laboratory if there are any questions. Chloride 104 98 - 107 mmol/L [facility] Carbon Dioxide 25 22 - 31 mmol/L [facility] Anion Gap 10 5 - 15 mmol/L [facility] Calcium 9.5 8.5 - 10.5 mg/dL [facility] Protein, Total 6.7 6.1 - 8.0 g/dL [facility] Albumin 4.1 3.2 - 5.2 g/dL [facility] Aspartate Aminotransferase 29 0 - 30 unit/L [facility] Alanine Aminotransferase 35(H) 0 - 30 unit/L [facility] Alkaline Phosphatase 93 35 - 105 unit/L [facility] Bilirubin, Total 0.4 0.2 - 1.3 mg/dL [facility] Est Glomerular Filtration Rate 74 >=60 mL/min/1. 73 m?? [facility] Comment: This patient's estimated GFR [...] and symptoms in addition to eGFR. Blood 12/23/2021 12:4 5 PM EDT 12/23/2021 1:04 PM EDT Narrative Resulting Agency Comment Spec In Lab Leandra Black APRN CHEMISTRY ORDERABL ES [facility] [place] [address] documented in this encounter Visit Diagnoses Diagnosis Malignant melanoma of conjunctiva, left History of renal cell cancer Malignant melanoma of conjunctiva, left Malignant melanoma of conjunctiva, left documented in this encounter Care Teams Cinnamon Grinder Relationship Specialty Start Date End Date Luis E Narayan MD [facility] [address] [place] [address] PCP - General Family Medicine 03/26/19 01/19/22 documented as of this encounter
--- OUTSIDE RECORDS SUMMARY | 2024-03-04 21:22 | XMS_ITS | Encounter Summary ---
Author Organization [facility] Address [facility] [place] [address] Care Team Providers Care Trailer Driver Name Role Phone Luis E Narayan MD Primary Care Provider [phone] Encounter Details Date Type Department Care Team (Late st Contact Info) Description 03/21/2022 Telephone [place]ematology [place] [address] Leandra Lopes, REGISTERED NURSES [facility] [place] [address] Social History Tobacco Use Types Packs/Day Years [...] encounter Miscellaneous Notes * Telephone Encounter - Leandra oLpes APRN - 03/21/2022 2:20 PM EDT I called Alize and let her know that her US shows no evidence of disease recurrence. We will plan on seeing Alize in [address] scan. The pt was in agreement with the plan outlined above and was instructed to call with any new symptoms or concerns. Leandra Lopes DNP, REGISTERED NURSES documented in this encounter Plan of Treatment Upcoming Encounters Date Type Department Care Team (Late st Contact Info) Description 03/20/2024 9:00 AM EDT TH Visit (TeleHealth) Sleep Center at [facility] [address] [place] [phone] Denisse Hardwick [facility] 03/20/2024 2:00 PM EDT Clinical Support Family Medicine at [facility] [address] [place] [phone] Julia Low [facility] 05/01/2024 11:20 AM EDT Appointment Mammography/DXA at [place] [address] Rodney Padilla MD [address] [place] [address] 05/01/2024 1:45 PM EDT Office Visit Ophthalmology at [place] [address] Juanpablo Hernandez MD [facility] [place] [address] 01/30/2025 1:30 PM EDT Appointment Hematology and Oncology at [place] [address] 01/30/2025 3:[address] Scan at [place] [address] Arturo Cordero MD [facility] DR HEMATOLOGY [place] [address] 01/30/2025 4:15 PM EDT Office Visit Hematology and Oncology at [place] [address] Artruo Cordero MD [facility] DR HEMATOLOGY [place] [address] documented as of this encounter Visit Diagnoses Not on filedocumented in this encounter Care Teams Trailer Driver Relationship Specialty Start Date End Date Luis E Narayan MD [facility] [place] [address] PCP - General Family Medicine 01/20/22 07/17/22 documented as of this encounter
--- OUTSIDE RECORDS SUMMARY | 2024-03-04 21:22 | XMS_ITS | Encounter Summary ---
Author Organization [facility] Address [facility] [place] [address] Care Team Providers Care Returned Goods Repairer Name Role Phone Luis E Narayan MD Primary Care Provider Reason for Visit * Reason Comments Melanoma OS Encounter Details Date Type Department Care Team (Late st Contact Info) Description 02/04/2022 3:30 PM EDT Office [place] [address] Juanpablo Hernandez MD [facility] [place] [address] Malignant melanoma of conjunctiva, left Social History [...] * Patient Instructions* Juanpablo Hernandez MD - 02/04/2022 3:30 PM EDT Medications: Use eye medications as [...] Progress Notes * Juanpablo Hernandez MD - 02/04/2022 3:30 PM EDT Encounter Diagnosis Name Primary? Malignant melanoma of conjunctiva, left Alize Gramajo is a 61 y.o. with [...] hat and skin protection in the sun. NIDDM with A1C of 8.1: -DFE today with no evidence of NPDR/PDR at last visit Current smoker but denies orthopnea, Hx of clear cell renal cell carcinoma Plan: - Follow up with dermatology and heme/onc as planned - Follow up 4 months or as needed - Findings and concerns discussed with Alize and she expressed understanding. Upon Return EPF I, Tere Albarran, have performed the documentation [...] [facility] [address] [place] [phone] Denisse Hardwick, [facility] 03/20/2024 2:00 PM EDT Clinical Support Family Medicine at [facility] [address] [place] [address] Julia Low, [facility] 05/01/2024 11:20 AM EDT Appointment Mammography/DXA at [place] [phone] Rodney Padilla MD [address] [place] [address] 05/01/2024 1:45 PM EDT Office Visit Ophthalmology at [place] [address] Juanpablo Hernandez MD [facility] [place] [address] 01/30/2025 1:30 PM EDT Appointment Hematology and Oncology at [place] [address] 01/30/2025 3:[address] Scan at [place] [address] Arturo Cordero MD [facility] DR [place] [address] 01/30/2025 4:15 PM EDT Office Visit Hematology and Oncology at [place] [address] Arturo Cordero MD [facility] DR [place] [address] documented as of this encounter Visit Diagnoses Diagnosis Malignant melanoma of conjunctiva, left documented in this encounter Care Teams Returned Goods Repairer Relationship Specialty Start Date End Date Luis E Narayan MD [facility] [place] [address] PCP - General Family Medicine 01/20/22 07/17/22 documented as of this encounter
--- OUTSIDE RECORDS SUMMARY | 2024-03-04 21:22 | XMS_ITS | Encounter Summary ---
Author Organization Formerly [facility], 1928–[address] [place] [address] Care Team Providers Care Centrifugal Supervisor Name Role Phone Luis E Narayan MD Primary Care Provider [phone] Encounter Details Date Type Department Care Team (Latest Contact Info) Description 03/03/2022 2:03 PM EDT - 03/03/2022 11:59 PM EDT [place] [address] Discharge Disposition: Home Social History Tobacco Use [...] 1 each 12/10/2021 02/04/2023 FreeStyle Sanjana 2 [place] MiscIndications:diabetes mellitus 1 each by Other route daily. Indications: diabetes mellitus 1 each 10/26/2021 01/23/2023 FreeStyle Sanjana 2 Sensor KitIndications:diabetes mellitus 1 each by Other route every 14 days. Indications: diabetes mellitus 2 kit 10/26/2021 01/23/2023 FreeStyle Lancets 28 gauge MiscIndications:diabetes mellitus 1 each by Other route 3 times daily. Indications: diabetes mellitus 100 each 11 10/11/2021 06/16/2022 fluticasone propionate (Flonase) 50 mcg/actuation [place], Suspension 1 spray by Each Nare route [...] polyethylene glycoL (Miralax) 17 gram Powder in PacketIndications:Juddi pation, unspecified constipation type Take 17 g [...] AM EDT TH Visit (TeleHealth) Sleep Center [facility] [address] [place] [address] Denisse Hardwick, [facility] 03/20/2024 2:00 PM EDT Clinical Support [facility] [address] [place] [phone] Julia Low, [facility] 05/01/2024 11:20 AM EDT Appointment Mammography/[place] [address] Rodney Padilla MD [address] [place] [address] 05/01/2024 1:45 PM EDT [place] [phone] Juanpablo Hernandez MD [facility] [place] [address] 01/30/2025 1:30 PM EDT Appointment [place] [address] 01/30/2025 3:[address] [place] [place] [address] Arturo Cordero MD [facility] [place] [address] 01/30/2025 4:15 PM EDT Office Visit [place] [address] Arturo Cordero MD [facility] [place] [address] documented as of this encounter Visit Diagnoses Not on filedocumented in this encounter Care Teams Centrifugal Supervisor Relationship Specialty Start Date End Date Luis E Narayan MD [facility] [address] [place] [address] PCP - General Family Medicine 01/20/22 07/17/22 documented as of this encounter
--- OUTSIDE RECORDS SUMMARY | 2024-03-04 21:22 | XMS_ITS | Encounter Summary ---
[place] [address] Care Team Providers Care Automated Access Systems Technician Name Role Phone Luis E Narayan MD Primary Care Provider Reason for Referral * Diagnostic Test (Routine) - Closed Specialty Diagnoses / Procedures Referred By Gonzalez kumari Referred To Contact Gastroenterology Diagnoses Bloating Dyspepsia HBT - glucose - bloating Procedures Breath Hydrogen Test HBT - glucose - bloating Alejandra Pop APRN [address] [place] [address] [facility] [address] [place] [id number] Referral ID Status Reason Start Date Expiration Date V isits Requested Visits Authorized [id number] Closed Consult, Test & Treat 03/01/2022 03/01/2023 1 1 * Diagnostic Test (Routine) - Closed Specialty Diagnoses / Procedures Referred By Gonzalez kumari Referred To Contact Gastroenterology Diagnoses Bloating Dyspepsia Smartpill for nausea Procedures SmartPill Smartpill for nausea Alejandra Pop APRN [address] [place] [address] [facility] [address] [place] [id number] Referral ID Status Reason Start Date Expiration Date V isits Requested Visits Authorized [id number] Closed Consult, Test & Treat 03/01/2022 03/01/2023 1 1 Reason for Visit * Consultation (Routine) - Closed Specialty Diagnoses / Procedures Referred By Contac t Referred To Contact Gastroenterology Diagnoses NAFL (nonalcoholic fatty liver) /abd pain/bloating - see Luis E Saba MD [facility] [address] [place] [address] [facility] [address] [place] [address] Referral ID Status Reason Start Date Expiration Date V isits Requested Visits Authorized [id number] Closed Consult, Test & Treat 12/15/2021 12/15/2022 1 1 Encounter Details Date Type Department Care Team (Late st Contact Info) Description 03/01/2022 3:00 PM EDT Office [place] [address] Alejandra Pop, MEDICAL SUPPLY TECHNICIAN [address] [place] [address] Bloating; Dyspepsia Social History Tobacco Use Types [...] Sign Reading Time Taken Comments Blood Pressure 146/80 03/01/2022 3:03 PM EDT Pulse 80 03/01/2022 3:03 PM EDT Temperature - - Respiratory Rate - - Oxygen Saturation - - Inhaled Oxygen Concentration - - Weight 109.6 kg (241 lb 11.2 oz) 03/01/2022 3:03 PM EDT Height 160.5 cm (5' 3.19) 03/01/2022 3:03 PM ED T Body Mass Index 42.56 03/01/2022 3:03 PM EDT documented in this encounter Patient Instructions * Patient Instructions* Alejandra Pop APRN - 03/01/2022 3:00 PM EDT Review AVS for recommendations on functional bowel disorders and techniques to address common GI symptoms. Trial each for at least 30 days. At the end of 30 days, if it is partially/totally effectivefor symptoms, keep using and try next agent. If not effective at all, stop using and try next recommendation. 2. Continue to follow up with PCP and other healthcare providers regarding other health concerns 3. All medication refill requests should be through PCP 4. When to go to ER for urgent evaluation: new/severe abdominal/chest pain, fevers, inability to maintain PO hydration or manage secretions, feeling like food is stuck in chest >1-2 hours, large amounts of blood/black tarry stools, loss of consciousness, etc 5. Benefiber one teaspoon mixed in 8 oz of fluid daily. Increase by one teaspoon per day every weekas tolerated up to 2 Tbs per day. If this makes symptoms worse, please stop. 6. Enteric coated peppermint oil four times daily as needed for abdominal pain (Order Pepogest or IB Nina online). 7. Stool studies at your convenience. Please report to desk 3L on the main campus of [facility] in [place] or may report to [facility] 8. Smart pill. You will hear from our hot shot to set this up once an appointment becomes available. You should hear from someone within one week. If not please call us. If insurance doesn't cover the smart pill, I will ask you to do a gastric emptying scan instead. We will let you know. Please call radiology at to schedule. 9. Hydrogen breath test. You will hear from our hot shot to set this up once an appointment becomes available. You should hear from someone within one week. If not please call us. 10. Follow-up with me approximately one month after testing documented in this encounter Progress Notes * Alejandra Pop APRN - 03/01/2022 3:00 PM EDT Chief Complaint: Alize Gramajo is a 61 y.o. patient referred for consultation by Dr. Narayan for abdominal pain and bloating History of Present Illness: 61 y.o. female with a history significant for coronary artery disease, hypertension, hyperlipidemia, DM2, anxiety, obstructive sleep apnea, history of heart arterial stentx4, diabetic polyneuropathy, COPD, bipolar Affective disorder in remission, iron deficiency, overactive bladder, adrenal mass, malignant neoplasm of kidney, and s/p . Endorses a long history of sensitive stomach. Onset of symptoms over one year. Symptoms have beengetting worse. Abdominal bloating, gets worse throughout the day. Epigastric pain. Denies heartburn. Endorses dysphagia to pills. Will clear with fluids. Diminished appetite. Early satiety. Denies unintentional weight loss. Denies chronic NSAID use. Denies vomiting. Denies nausea Denies diarrhea. Mild constipation occasionally. May last 1-2 days. Denies hematochezia/melena. Denies abdominal cramping, fecal urgency. Has been to the ER for this issue. Was prescribed sucralfate. Changed omeprazole to pantoprazole. Simethicone. Currently taking simethicone and carafate four times per day. Last A1C 8.1%. Neuropathy. Endorses anxiety Denies disordered eating Denies abuse history Endorses cardiac stent placement Asthma Endorses urinary frequency in the evening Review of systems: 14-system ROS reviewed and negative except as above Medications: Outpatient Medications Prior to Visit Medication Sig Dispense Refill ??? metFORMIN XR (Glucophage XR) 500 mg Tablet Sustained Release 24 hr Take 2 tablets by mouth 2 times daily (with meals). 360 tablet 3 ??? losartan (Cozaar) 100 mg Tablet Take 1 tablet by mouth daily. 30 tablet 0 ??? metoprolol succinate XL (Toprol XL) 25 mg Tablet Sustained Release 24 hr Take 1 tablet by mouthdaily. 30 tablet 0 ??? clopidogreL (Plavix) 75 mg Tablet Take 1 tablet by mouth daily. Restart post-operatively on 07/05 30 tablet 0 ??? loratadine (Claritin) 10 mg Tablet Take 1 tablet by mouth daily. 30 tablet 0 ??? sucralfate (Carafate) 100 mg/mL Suspension Take 10 mLs by mouth 4 times daily. 420 mL 5 ??? amLODIPine (Norvasc) 5 mg Tablet Take 1 tablet by mouth daily. 90 tablet 3 ??? albuteroL (Proventil HFA) 90 mcg/actuation HFA Aerosol Inhaler Inhale 2 puffs into the lungs every 4 hours as needed for wheeze. Use with spacer 1 each ??? FreeStyle Sanjana 2 [place] Misc 1 each by Other route daily. Indications: diabetes mellitus 1 each 0 ??? FreeStyle Sanjana 2 Sensor Kit 1 each by Other route every 14 days. Indications: diabetes mellitus 2 kit 0 ??? FreeStyle Lancets 28 gauge Misc 1 each by Other route 3 times daily. Indications: diabetes mellitus 100 each 11 ??? fluticasone propionate (Flonase) 50 mcg/actuation [place], Suspension 1 spray by Each Nare route 2 times daily. 16 g 11 ??? Alcohol Swabs Pads, Medicated Apply 1 each topically daily. 100 each 3 ??? melatonin 5 mg Tablet Take by mouth. ??? simvastatin (Zocor) 10 mg Tablet Take 1 tablet by mouth daily. 90 tablet 3 ??? budesonide-formoteroL (Symbicort) 80-4.5 mcg/actuation HFA Aerosol Inhaler Inhale 2 puffs into the lungs 2 times daily. 3 each 3 ??? polyethylene glycoL (Miralax) 17 gram Powder in Packet Take 17 g by mouth daily. 14 each 0 ??? traZODone (Desyrel) 100 mg Tablet Take 1 tablet by mouth nightly. 90 tablet 3 ??? LORazepam (Ativan) 1 mg Tablet Take 1 mg by mouth every evening. ??? busPIRone (Buspar) 10 mg Tablet Take 20 mg by mouth 2 times daily. ??? lamoTRIgine (LaMICtal) 100 mg Tablet Take 1 tablet by mouth daily. 90 tablet 3 ??? aspirin EC 81 mg Tablet, Delayed Release (E.C.) Take 81 mg by mouth daily. ??? nitroGLYcerin (Nitrostat) 0.4 mg Tablet, Sublingual Place 1 tablet under the tongue See Admin Instructions. (Patient not taking: No sig reported) 30 tablet 0 ??? omeprazole (PriLOSEC) 40 mg Capsule, Delayed Release(E.C.) Take 1 capsule by mouth daily. (Patient not taking: No sig reported) 90 capsule 3 ??? simethicone (Gas Relief 80, simethicone,) 80 mg Tablet, Chewable Take 1 tablet by mouth every 6hours as needed for Flatulence. (Patient not taking: No sig reported) 30 tablet 3 No facility-administered medications prior to visit. Allergies: is allergic to codeine phosphate, erythromycin base, azithromycin, ibuprofen, lisinopril, and nsaids (non-steroidal anti-inflammatory drug). Past Medical History: has a past medical history of Allergy, Antiplatelet or antithrombotic long-term use, Arthritis, Asthma, Atherosclerosis of [place] coronary artery of [place] heart with angina pectoris (10/09/2007), CAD (coronary artery disease) (October 12, 2007), COPD (chronic obstructive pulmonarydisease), CPAP (continuous positive airway pressure) dependence, Depression, Diabetes, Diabetes mellitus, Dry mouth, Heart valve disease, High blood pressure, Hypercholesterolemia, Hypertension, Malignant neoplasm of kidney (01/13/2020), Mental health problem, Mental status change, Motion sickness, Myocardial infarction, Obesity, Obstructive sleep apnea, TITO (obstructive sleep apnea), Polyneuropathy, and Post-operative nausea and vomiting. Past Surgical History: has a past surgical history that includes knee surgery; section; Coronary angioplasty with stent; Lap, Partial Nephrectomy (27484) (Left, 06/28/2019); Excis Cornea Lesn ([id number]) (Left, 05/14/2020); Destr Corneal Lesn, Cryo, Photo, Therm ([id number]) (Left, 05/14/2020); PlaceAmniotic Membrane Ocular Surface;Single Layer Sutured ([id number]) (Left, 05/14/2020); laser surgery; andcryopexy (Left). Family History: family history includes Breast Cancer in her maternal aunt; Heart Disease in her father; Medical History Unknown in an other family member; Uterine Cancer (age of onset: 76) in her mother. Brother- pancreatic cancer denies family history of colon cancer, IBD, or celiac disease in mother father or other family members Social History: reports that she has been smoking cigarettes. She has a 40.00 pack-year smoking history. She has never used smokeless tobacco. She reports that she does not drink alcohol and does notuse drugs. Physical Exam: VITAL SIGNS: BP 146/80 (BP Location (NBP): Left arm, Patient Position: Sitting, BP Cuff Sizes: Large Adult (32-43 cm)) Pulse 80 Ht 160.5 cm (5' 3.19) Wt 109.6 kg (241 lb 11.2 oz) BMI 42.56 kg/m?? BMI: Body mass index is 42.56 kg/m??. Gen: nad, normal body habitus Eyes: no scleral icterus Skin: warm, dry, no rashes, no induration Neurologic: intact to light touch Psych: appropriate affect, a+ox3 Questionnaire: Q-GI MOTILITY CLINIC BATTERY 03/01/2022 CDC Healthy Day Score 30 Work Absenteeism Incomplete Work Presenteeism Incomplete Laboratory studies, imaging, and procedures (my review of prior records): 1. CBC (platelets 387), CMP (ALT 35) 12/23/21; unrevealing except for where otherwise noted 2. CT chest/abd/pelvis 12/23/21; no metastatic disease in the chest, abd, or pelvis. Post left lowerpole partial nephrectomy without evidence of local recurrence on this single phase examination. Hepatic steatosis 3. HIDA scan per referral note; EJ 83% 4. Celiac panel normal per referral note 5. EGD 2020 per referral note outside hospital; normal esophagus. z-line regular. antral gastritis.normal examined duodenum. 6. Colonoscopy 2020 per referral note outside hospital; polyps x 4 Assessment/Plan: Ms. Gramajo is a 61 y.o. patient with the following issues: 1. Chronic bloating on a daily basis, worsening over the past year. She has been unable to attribute bloating to diet. She denies constipation and diarrhea. She does not have any red flag warning signs. EGD and colonoscopy unremarkable. Celiac panel unremarkable per referral note. HIDA scan with a normal ejection fraction. Cross-sectional imaging without evidence of obstruction or lesions that may be contributing to symptoms. She is a poorly controlled type II diabetic. I suspect there is an underlying dysmotility. Symptoms could also represent small intestinal bacterial overgrowth. I cannot rule infectious etiology 2. Dyspepsia with epigastric pain and bloating. No evidence of H. pylori on EGD. She may benefit from motility testing. Differential diagnoses include functional dyspepsia, and diabetic gastroparesis Recommendations: - Hydrogen breath test - Stool culture, Giardia/crypto - Smart pill. If Smart pill is not covered by insurance, I ordered a gastric emptying scan - Benefiber - Enteric-coated peppermint oil - Continue simethicone as previously taking - Continue pantoprazole as previously taking - Continue sucralfate as previously taking - Follow-up with me 1 month after testing is complete Alejandra Pop APRN [facility] [place] [address] documented in this encounter Plan of Treatment Upcoming Encounters Date Type Department Care Team (Late st Contact Info) Description 03/20/2024 9:00 AM EDT TH Visit (TeleHealth) Sleep Center at [facility] [address] [place] [address] Denisse [place], WEBSITE [employer]IMIZATION [facility] 03/20/2024 2:00 PM EDT Clinical Support Family Medicine at [facility] [address] [place] [address] Julia Low, [facility] 05/01/2024 11:20 AM EDT Appointment Mammography/[place] [address] Rodney Padilla MD [address] [place] [address] 05/01/2024 1:45 PM EDT Office [place] [address] Juanpablo Hernandez MD [facility] [place] [address] 01/30/2025 1:30 PM EDT Appointment Hematology [place] [address] 01/30/2025 3:[address] [place] [address] Arturo Cordero MD [facility] [place] [address] 01/30/2025 4:15 PM EDT Office Visit Hematology [place] [address] Arturo Cordero MD [facility] [place] [address] Scheduled Orders Name Type Priority Associated Diagnoses Orde r Schedule SmartPill GI Routine Bloating Dyspepsia Expected: 03/01/2022 (Approximate), Expires: 08/31/2022 Breath Hydrogen Test GI Routine Bloating Dyspepsia Expected: 03/01/2022 (Approximate), Expires: 08/31/2022 documented as of this encounter Visit Diagnoses Diagnosis Bloating Flatulence, eructation, and gas pain Dyspepsia Dyspepsia and other specified disorders of function of stomach documented in this encounter Care Teams Automated Access Systems Technician Relationship Specialty Start Date End Date Luis E Narayan MD [facility] [address] [place] [address] PCP - General Family Medicine 01/20/22 07/17/22 documented as of this encounter
--- OUTSIDE RECORDS SUMMARY | 2024-03-04 21:22 | XMS_ITS | Encounter Summary ---
Author Organization [facility] Address [facility] [place] [address] Care Team Providers Care Process Plant Operator Name Role Phone Luis E Narayan MD Primary Care Provider [phone]- [phone] Encounter Details Date Type Department Care Team (Late st Contact Info) Description 04/07/2022 Telephone Family Medicine at [facility] [address] [place] [phone] Earl Valdez MD [facility] [address] [place] [address] Social History Tobacco Use Types Packs/Day Years [...] encounter Miscellaneous Notes * Telephone Encounter - Earl Valdez MD - 04/07/2022 2:19 PM EDT Spoke with patient about her recent urine culture that shows 10-50,000 E. coli. Patient does not report fever or dysuria but says that there is frequency. We will treat with a 5-day course of Macrobid. documented in this encounter Plan of Treatment Upcoming Encounters Date Type Department Care Team (Late st Contact Info) Description 03/20/2024 9:00 AM EDT TH Visit (TeleHealth) Sleep Center at [facility] [address] [place] [phone] Denisse Hardwick, [facility] 03/20/2024 2:00 PM EDT Clinical Support Family Medicine at [facility] [address] [place] [address] Julia Low [facility] 05/01/2024 11:20 AM EDT Appointment Mammography/[place] [address] Rodney Padilla MD [address] [place] [address] 05/01/2024 1:45 PM EDT Office Visit Ophthalmology at [place] [phone] Juanpablo Hernandez MD [facility] [place] [address] 01/30/2025 1:30 PM EDT Appointment Hematology [place] [address] 01/30/2025 3:[address] Scan at [place] [phone] Arturo Cordero MD [facility] DR [place] [address] 01/30/2025 4:15 PM EDT Office Visit Hematology [place] [address] Arturo Cordero MD [facility] [address] [place] [address] documented as of this encounter Visit Diagnoses Not on filedocumented in this encounter Care Teams Process Plant Operator Relationship Specialty Start Date End Date Luis E Narayan MD [facility] [place] [address] PCP - General Family Medicine 01/20/22 07/17/22 documented as of this encounter
--- OUTSIDE RECORDS SUMMARY | 2024-03-04 21:22 | XMS_ITS | Encounter Summary ---
Author Organization [facility] [place] [place] [address] Care Team Providers Care Gas Plant Technician Name Role Phone Luis E Narayan MD Primary Care Provider +1- [phone] Encounter Details Date Type Department Care Team (Latest Contact Info) Description 12/23/2021 12:35 PM EDT - 12/23/2021 11:59 PM EDT Hospital Encounter Hematology [place] [address] Malignant melanoma of conjunctiva, left Discharge Disposition: [...] topically daily. 100 each 3 11/07/2022 11/02/2023 amLODIPine (Norvasc) 5 mg TabletIndications:Essent ial hypertension Take 1 tablet by mouth daily. 90 tablet 3 12/15/2021 03/28/2022 albuteroL (Proventil HFA) 90 mcg/actuation HFA Aerosol InhalerIndications:Simpl e chronic bronchitis Inhale 2 puffs into the lungs every 4 hours as needed for wheeze. Use with spacer 1 each 12/10/2021 02/04/2023 FreeStyle Sanjana 2 [place] MiscIndications:diabetes mellitus 1 each by Other route daily. Indications: diabetes mellitus 1 each 10/26/2021 01/23/2023 FreeStyle Sanjana 2 Sensor KitIndications:diabetes mellitus 1 each by Other route every 14 days. Indications: diabetes mellitus 2 kit 10/26/2021 01/23/2023 FreeStyle Lancets 28 gauge MiscIndications:diabetes mellitus 1 each by Other route 3 times daily. Indications: diabetes mellitus 100 each 11 10/11/2021 06/16/2022 sucralfate (Carafate) 100 mg/mL Suspension Take 10 mLs by mouth 4 times daily. 420 mL 5 10/01/2021 01/29/2022 fluticasone propionate (Flonase) 50 mcg/actuation [place], Suspension 1 spray by Each Nare route 2 times daily. 16 g 11 09/10/2021 09/25/2022 metoprolol succinate XL (Toprol XL) 25 mg Tablet Sustained Release 24 hr Take 1 tablet by mouth daily. 90 tablet 1 08/06/2021 02/11/2022 clopidogreL (Plavix) 75 mg Tablet Take 1 tablet by mouth daily. Restart post-operatively on 07/05 90 tablet 1 08/06/2021 02/11/2022 loratadine (Claritin) 10 mg Tablet Take 1 tablet by mouth daily. 90 tablet 1 08/06/2021 02/11/2022 metFORMIN (GLUCOPHAGE) 1,000 mg TabletIndications:Type 2 diabetes mellitus with hyperglycemia, without long-term current use of insulin Take 1 tablet by mouth 2 times daily (with meals). 180 tablet 1 08/03/2021 02/11/2022 nitroGLYcerin (Nitrostat) 0.4 mg Tablet, Sublingual Place [...] times daily. 3 each 3 05/26/2021 06/24/2022 omeprazole (PriLOSEC) 40 mg Capsule, Delayed Release(E.C.) Take 1 capsule by mouth daily. 90 capsule 3 05/07/2021 03/01/2022 losartan (Cozaar) 100 mg Tablet Take 1 tablet by mouth daily. 90 tablet 3 03/31/2021 02/11/2022 simethicone (Gas Relief 80, simethicone,) 80 mg [...] TH Visit (TeleHealth) Sleep Center at [facility] [address] [place] [phone] Denisse Hardwick, PROJECT MANAGEMENT ANALYST [facility] 03/20/2024 2:00 PM EDT Clinical Support Family Medicine at [facility] [address] [place] [phone] Julia Low, [facility] 05/01/2024 11:20 AM EDT Appointment Mammography/[place] [phone] Rodney Padilla MD [address] [place] [address] 05/01/2024 1:45 PM EDT Office [place] [address] Juanpablo Hernandez MD [facility] [place] [address] 01/30/2025 1:30 PM EDT Appointment Hematology [place] [address] 01/30/2025 3:[address] [place] [phone] Arturo Cordero MD [facility] [place] [address] 01/30/2025 4:15 PM EDT Office Visit Hematology [place] [phone] Arturo Cordero MD [facility] [place] [address] documented as of this encounter Procedures Procedure Name Priority Date/Time Associated Diagnosis Comments HEMOGRAM STAT 12/23/2021 12:45 PM EDT Malignant melanoma of conjunctiva, left DIFFERENTIAL, AUTOMATED STAT 12/23/2021 12:45 PM EDT Malignant melanoma of conjunctiva, left HC CBC,PLT & AUTO DIFF STAT 2 12:45 PM EDT Malignant melanoma of conjunctiva, left HC LACTIC DEHYDROGENASE STAT 12/23/2021 12:45 PM EDT Malignant melanoma of conjunctiva, left COMPREHENSIVE METABOLIC PANEL STAT 12/23/2021 12:45 PM EDT Malignant melanoma of conjunctiva, left documented in this encounter Results * Differential, Automated (12/23/2021 12:45 PM EDT) Neutrophil % 62.7 % [facility] Neutrophil Absolute 4.80 1.70 - 6.10 x10(3)/[facility] Lymph % 27.4 % [facility] Lymphocytes Abs 2.1 0.9 - 3.2 x10(3)/[facility] Monocyte % 6.9 % [facility] Monocyte Abs 0.5 0.3 - 0.9 x10(3)/[facility] Eos % 1.7 % [facility] Eosinophils Abs 0.1 0.0 - 0.4 x10(3)/[facility] Basophil % 0.8 % [facility] Baso Absolute 0.1 0.0 - 0.1 x10(3)/[facility] Immature Gran % 0.50 % [facility] Comment: Immature granulocytes(IG's)percentage and absolute count will include metamyelocytes, myelocytes, and promyelocytes. Blood smears from CBCs yielding IG's will be scanned manually for concordance. If this scan disagrees with the automated IG or if promyelocytes are noted, a manual differential will be performed. Immature Gran Absolute 0.04 0.00 - 0.04 x10(3)/[facility] Blood 12/23/2021 12:4 5 PM EDT 12/23/2021 1:04 PM EDT Narrative Resulting Agency Comment Spec In Lab Leandra Lopes APPLICATION DESIGNER HEMATOLOGY ORDERAB LES [facility] [place] [address] * (ABNORMAL) Hemogram (12/23/2021 12:45 PM EDT) White Blood Cell 7.7 4.0 - 9.5 x10(3)/mc L [facility] Red Blood Cell 4.53 4.00 - 5.21 x10(6)/ L [facility] Hemoglobin 12.9 11.7 - 15.5 g/dL [facility] Hematocrit 39.6 35.7 - 45.8 % [facility] Mean Cell Volume 87.4 82.6 - 94.4 fL [facility] Mean Cell Hemoglobin 28.5 27.1 - 32.0 pg [facility] Mean Cell Hemoglobin Concentration 32.6 31.7 - 35.0 g/dL [facility] Platelet 387(H) 145 - 357 x10(3)/mc L [facility] RDW Standard Deviation 46.8(H) 37.0 - 46.0 fL [facility] RDW coefficient of variation 14.5(H) 11.5 - 14.1 % [facility] Mean Platelet Volume 9.6 7.6 - 12.9 fL [facility] NRBC% auto 0.0 % [facility] NRBC Absolute 0.000 0.000 - 0.000 x10(3)/mc L [facility] Blood 12/23/2021 12:4 5 PM EDT 12/23/2021 1:04 PM EDT Narrative Resulting Agency Comment Spec In Lab Leandra Loeps APRN HEMATOLOGY ORDERAB LES Performing Organization Address [facility]/ZIP Co de Phone Number [facility] [place] [address] * Lactate Dehydrogenase (12/23/2021 12:45 PM EDT) Lactate Dehydrogenase 219 110 - 220 unit/L [facility] Blood 12/23/2021 12:4 5 PM EDT 12/23/2021 1:04 PM EDT Narrative Resulting Agency Comment Spec In Lab Leandra Lopes APRN CHEMISTRY ORDERABL ES Performing Organization Address City/[facility]/ZIP Co de Phone Number [facility] [place] [address] * (ABNORMAL) Comprehensive metabolic panel (non-fasting) (12/23/2021 12:45 PM EDT) Glucose 190 65 - 199 mg/dL [facility] Comment:Diabetes: >=200 mg/d L plus symptoms Blood Urea Nitrogen 13 8 - 18 mg/dL [facility] Creatinine 0.88 0.70 - 1.20 mg/dL [facility] Sodium 139 135 - 145 mmol/L [facility] Potassium 4.4 3.5 - 5.0 mmol/L [facility] Comment: Please note: ??Patients with WBC >100,000 may have falsely elevated Potassium levels. ??For accurate Potassium quantification in these patients send serum separator tube (gold top) for subsequent determinations. ??Contact the Clinical Chemistry Laboratory if there are any questions. Chloride 104 98 - 107 mmol/L [facility] Carbon Dioxide 25 22 - 31 mmol/L [facility] Anion Gap 10 5 - 15 mmol/L [facility] Calcium 9.5 8.5 - 10.5 mg/dL [facility] Protein, Total 6.7 6.1 - 8.0 g/dL [facility] Albumin 4.1 3.2 - 5.2 g/dL [facility] Aspartate Aminotransferase 29 0 - 30 unit/L [facility] Alanine Aminotransferase 35(H) 0 - 30 unit/L [facility] Alkaline Phosphatase 93 35 - 105 unit/L [facility] Bilirubin, Total 0.4 0.2 - 1.3 mg/dL [facility] Est Glomerular Filtration Rate 74 >=60 mL/min/1. 73 m?? [facility] Comment: This patient's estimated GFR [...] Agency Comment Spec In Lab Leandra Lopes APPLICATION DESIGNER CHEMISTRY ORDERABL ES [facility] [place] [address] documented in this encounter Visit Diagnoses Diagnosis Malignant melanoma of conjunctiva, left documented in this encounter Care Teams Gas Plant Technician Relationship Specialty Start Date End Date Luis E Narayan MD [facility] [address] [place] [address] PCP - General Family Medicine 03/26/19 01/19/22 documented as of this encounter
--- OUTSIDE RECORDS SUMMARY | 2024-03-04 21:22 | XMS_ITS | Encounter Summary ---
Author Organization [facility] [place] [address] Care Team Providers Care Absence Management Consultant Name Role Phone Luis E Narayan MD Primary Care Provider +1- [phone] Encounter Details Date Type Department Care Team (Latest Contact Info) Description 03/06/2022 2:02 PM EDT - 03/06/2022 11:59 PM EDT Hospital [place] [address] Bloating; Dyspepsia Discharge Disposition: Home Social History [...] each 11 12/10/2021 02/04/2023 FreeStyle Sanjana 2 [place] MiscIndications:diabetes mellitus 1 each by Other route [...] 06/16/2022 fluticasone propionate (Flonase) 50 mcg/actuation [place], Suspension 1 spray by Each Nare route [...] at [facility] [address] [place] [address] Denisse Hardwick, MANAGER TRANSFER [facility] C[facility] 03/20/2024 2:00 PM EDT Clinical Support Family Medicine at [facility] [address] [place] [address] Julia Low, [facility] 05/01/2024 11:20 AM EDT Appointment Mammography/[place] [phone] Rodney Padilla MD [address] [place] [address] 05/01/2024 1:45 PM EDT Office [place] [phone] Juanpablo Hernandez MD [facility] [place] [address] 01/30/2025 1:30 PM EDT Appointment Hematology [place] [address] 01/30/2025 3:[address] [place] [address] Arturo Cordero MD [facility] [place] [address] 01/30/2025 4:15 PM EDT Office Visit Hematology [place] [address] Arturo Cordero MD [facility] [place] [address] documented as of this encounter Procedures Procedure Name Priority Date/Time Associated Diagnosis Comments CRYPTOSPORIDIUM OOCYST ANTIGEN ([facility]CGP/APD) Routine 03/07/2022 9:37 AM EDT Bloating Dyspepsia HC GIARDIA ANTIGEN ELOY METHOD Routine 03/07/2022 9:37 AM EDT Bloating Dyspepsia GIARDIA ANTIGEN ([facility]/CGP/APD/NL) Routine 03/07/2022 9:37 AM EDT Bloating Dyspepsia documented in this encounter Results * Cryptosporidium Oocyst Antigen ([facility]/APD) (03/07/2022 9:37 AM EDT) Cryptosporidium Antigen Negative Negative [facility] Stool 03/07/2022 9:37 AM EDT 03/07/2022 2:21 PM EDT Narrative Resulting Agency Comment Spec In Lab Alejandra Pop EMERGENCY COMMUNICATIONS DISPATCHER MICROBIOLOGY - G ENERAL ORDERABLES [facility] [place] [address] * Giardia antigen ([facility]/CGP/APD/NLH) (03/07/2022 9:37 AM EDT) Giardia Antigen Negative Negative [facility] Comment:Examination for othe r intestinal parasites requires foreign travel history. Stool 03/07/2022 9:37 AM EDT 03/07/2022 2:21 PM EDT Narrative Resulting Agency Comment Spec In Lab Alejandra Pop EMERGENCY COMMUNICATIONS DISPATCHER MICROBIOLOGY - G ENERAL ORDERABLES [facility] [place] [address] documented in this encounter Visit Diagnoses Diagnosis Bloating Flatulence, eructation, and gas pain Dyspepsia Dyspepsia and other specified disorders of function of stomach documented in this encounter Care Teams Absence Management Consultant Relationship Specialty Start Date End Date Luis E Narayan MD [facility] [address] [place] [address] PCP - General Family Medicine 01/20/22 07/17/22 documented as of this encounter
--- OUTSIDE RECORDS SUMMARY | 2024-03-04 21:22 | XMS_ITS | Encounter Summary ---
Author Organization [facility] [place] [address] Care Team Providers Care Cream Tester Name Role Phone Luis E Narayan MD Primary Care Provider +1- [phone] Encounter Details Date Type Department Care Team (Late st Contact Info) Description 03/25/2022 Telephone Hematology [place] [address] Dar Fernandez MD [facility] DR HEMATOLOGY/[place] [address] Social History Tobacco Use Types Packs/Day Years [...] Telephone Encounter - Dar Fernandez MD - 03/25/2022 8:49 PM EDT Heme-Onc Staff I have reviewed the patient's record and, given personal and/or family history of cancer she shouldbe seen by a genetic counselor. This is scheduled for next week. Dar Fernandez MD welder apprentice combination in Hematology-Oncology documented in this encounter Plan of Treatment Upcoming Encounters Date Type Department Care Team (Late st Contact Info) Description 03/20/2024 9:00 AM EDT TH Visit (TeleHealth) Sleep Center at [facility] [address] [place] [address] Denisse Hardwick, ROTOR ASSEMBLER [facility]EP C[facility] 03/20/2024 2:00 PM EDT Clinical Support Family Medicine at [facility] [address] [place] [phone] Julia Low, [facility] 05/01/2024 11:20 AM EDT Appointment Mammography/[place] [phone] Rodney Padilla MD [address] [place] [address] 05/01/2024 1:45 PM EDT Office Visit Ophthalmology at [place] [phone] Juanpablo Hernandez MD [facility] [place] [address] 01/30/2025 1:30 PM EDT Appointment Hematology and Oncology at [address] 01/30/2025 3:[address] Scan at [place] [phone] Arturo Cordero MD [facility] DR [place] [address] 01/30/2025 4:15 PM EDT Office Visit Hematology and Oncology at [place] [phone] Arturo Cordero MD [facility] DR [place] [address] documented as of this encounter Visit Diagnoses Not on filedocumented in this encounter Care Teams Cream Tester Relationship Specialty Start Date End Date Luis E Narayan MD [facility] [place] [address] PCP - General Family Medicine 01/20/22 07/17/22 documented as of this encounter
--- OUTSIDE RECORDS SUMMARY | 2024-03-04 21:22 | XMS_ITS | Encounter Summary ---
Author Organization [facility] Address [facility] [place] [address] Care Team Providers Care Wafer Fabrication Operator Name Role Phone Luis E Narayan MD Primary Care Provider +1- [phone] Reason for Visit * Reason Onset Date Comments Medication Refill 02/11/2022 Encounter Details Date Type Department Care Team (Late st Contact Info) Description 02/11/2022 Refill Family Medicine at [facility] [address] [place] [address] Luis E Narayan MD [facility] [address] [place] [address] Type 2 diabetes mellitus without long-term current [...] Telephone Encounter - Jade Kruse MA - 02/11/2022 4:03 PM EDT Prescription Refill Request Prescription(s) Requested: Requested Prescriptions Pending Prescriptions Disp Refills ??? losartan (Cozaar) 100 mg Tablet 90 tablet 3 Sig: Take 1 tablet by mouth daily. ??? metFORMIN (Glucophage) 1,000 mg Tablet 180 tablet 1 Sig: Take 1 tablet by mouth 2 times daily (with meals). ??? metoprolol succinate XL (Toprol XL) 25 mg Tablet Sustained Release 24 hr 90 tablet 1 Sig: Take 1 tablet by mouth daily. ??? clopidogreL (Plavix) 75 mg Tablet 90 tablet 1 Sig: Take 1 tablet by mouth daily. Restart post-operatively on 07/05 ??? loratadine (Claritin) 10 mg Tablet 90 tablet 1 Sig: Take 1 tablet by mouth daily. Date of Encounter last in This Dept (If over a year and no apt scheduled send to secretaries to schedule): 08/20/2021 Robin Next Encounter in This Dept: Visit date not found Date of Last Refill (for each medication): 03/31/2021 08/03/2021 08/06/2021 08/06/2021 08/06/2021 Medication category req. lab studies Lab Results Component Value Date NA 139 12/23/2021 K 4.4 12/23/2021 CL 104 12/23/2021 CO2 25 12/23/2021 BUN 13 12/23/2021 CREATININE 0.88 12/23/2021 GLUCOSE 190 12/23/2021 GLUCFASTING 116 (H) 06/29/2019 CALCIUM 9.5 12/23/2021 ESTGFR 74 12/23/2021 documented in this encounter Plan of Treatment Upcoming Encounters Date Type Department Care Team (Late st Contact Info) Description 03/20/2024 9:00 AM EDT TH Visit (TeleHealth) Sleep Center [facility] [address] [place] [address] Denisse Hardwick, [facility] 03/20/2024 2:00 PM EDT Clinical Support Family [facility] [address] [place] [phone] Julia Low, [facility] 05/01/2024 11:20 AM EDT Appointment Mammography/[place] [address] Rodney Padilla MD [address] [place] [place] [address] 05/01/2024 1:45 PM EDT Office [place] [phone] Juanpablo Hernandez MD [facility] [place] [address] 01/30/2025 1:30 PM EDT Appointment Hematology [place] [address] 01/30/2025 3:[address] [place] [address] Arturo Cordero MD [facility] [place] [address] 01/30/2025 4:15 PM EDT Office Visit Hematology [place] [address] Arturo Cordero MD [facility] [address] [place] [address] documented as of this encounter Visit Diagnoses Diagnosis Type 2 diabetes mellitus without long-term current use of insulin documented in this encounter Care Teams Wafer Fabrication Operator Relationship Specialty Start Date End Date Luis E Narayan MD [facility] [address] [place] [address] PCP - General Family Medicine 01/20/22 07/17/22 documented as of this encounter
--- OUTSIDE RECORDS SUMMARY | 2024-03-04 21:22 | XMS_ITS | Encounter Summary ---
Author Organization [facility] Address [facility] [place] [address] Care Team Providers Care Culture Media Laboratory Assistant Name Role Phone Luis E Narayan MD Primary Care Provider +1- [phone] Reason for Visit * Reason Onset Date Comments Other 04/14/2022 Encounter Details Date Type Department Care Team (Late st Contact Info) Description 04/14/2022 Telephone Family Medicine at [facility] [address] [place] [phone] Luis E Narayan MD [facility] [address] [place] [address] Other Social History Tobacco Use Types Packs/Day Years [...] Telephone Encounter - Shannon Ward RN - 04/14/2022 4:51 PM EDT Call to pt. Identified by name and . Seen in [facility] ED last night and treated for diverticulitis with Augmentin. Pt was told to try clear liquids for 24-48 hours initially as symptoms and evaluation showed mild diverticuli. To start Augmentin if clear liquids is not improving symptoms. Pt states she has mild LLQ tenderness with certain movements. No fever. Requesting follow up appt with PCP on 04/19/22 as she will be HTR sleep medicaine for another appt Scheduled as requested Provided support. Fax request for medical records sent to [facility] * Telephone Encounter - Angi King - 04/14/2022 4:42 PM EDT Please call patient to discuss Emergency Room Follow Up Reason for the Emergency Room visit: Lower left abdominal pain Name of the facility where patient was seen: [facility]. [address], [address], [place] [address]. Symptomatic now: yes Other information: Patient called reporting still positive for abdominal pain. Seen in emergency room . Diagnosis possible diverticulitis. Labs & CT done in emergency room. Patient requesting follow up appointment with Suzanne Martinez APRN on 04/19/22 after 10:40 appointment with another provider. Caller and Relationship (if other than patient): Alize Tran Avila Best time to call back: any Okay to leave a message: y Okay to send [facility] message: y Nurse contacted via: Message: X Call: n/a Pager: n/a documented in this encounter Plan of Treatment Upcoming Encounters Date Type Department Care Team (Late st Contact Info) Description 03/20/2024 9:00 AM EDT TH Visit (TeleHealth) Sleep Center at [facility] [address] [place] [address] Denisse Hardwick, PROGRAM COORDINATOR FOR [facility] 03/20/2024 2:00 PM EDT Clinical Support Family Medicine at [facility] [address] [place] [phone] Julia Low, [facility] 05/01/2024 11:20 AM EDT Appointment Mammography/[place] [address] Rodney Padilla MD [address] [place] [place] [address] 05/01/2024 1:45 PM EDT Office [place] [address] Juanpablo Hernandez MD [facility] [place] [address] 01/30/2025 1:30 PM EDT Appointment Hematology [place] [address] 01/30/2025 3:[address] Scan at [place] [phone] Arturo Cordero MD [facility] HEMATOLOGY [place] [address] 01/30/2025 4:15 PM EDT Office Visit Hematology [place] [phone] Arturo Cordero MD [facility] HEMATOLOGY [place] [address] documented as of this encounter Visit Diagnoses Not on filedocumented in this encounter Care Teams Culture Media Laboratory Assistant Relationship Specialty Start Date End Date Luis E Narayan MD [facility] DR [address] [place] [address] PCP - General Family Medicine 01/20/22 07/17/22 documented as of this encounter
--- OUTSIDE RECORDS SUMMARY | 2024-03-04 21:22 | XMS_ITS | Encounter Summary ---
Author Organization [facility] Address [facility] [place] [address] Care Team Providers Care Organic Preparation Technician Name Role Phone Luis E Narayan MD Primary Care Provider [phone]- [phone] Reason for Visit * Reason Comments Follow-up Encounter Details Date Type Department Care Team (Late st Contact Info) Description 04/12/2022 1:00 PM EDT Office Visit Family Medicine at [facility] [address] [place] [address] Suzanne Martinez APRN [facility] [address] LIL[address] [place] [address] Acute upper respiratory infection; Frequency of micturition; Lower abdominal pain; Type 2 diabetes mellitus with hyperglycemia, without long-term current use of insulin; Ear pain, bilateral; Oral thrush; Intertrigo Social History Tobacco Use Types Packs/Day Years [...] Sign Reading Time Taken Comments Blood Pressure 149/76 04/12/2022 12:53 PM EDT Pulse 79 04/12/2022 12:53 PM EDT Temperature 36.5 ??C (97.7 ??F) 04/12/2022 12:53 PM E DT Respiratory Rate 20 04/12/2022 12:53 PM EDT Oxygen Saturation 99% 04/12/2022 12:53 PM EDT Inhaled Oxygen Concentration - - Weight - - Height - - Body Mass Index - - documented in this encounter Progress Notes * Suzanne Martinez, KATHIA - 04/12/2022 1:00 PM EDT Alize Gramajo is a 61 y.o. female , patient of Luis E Narayan MD here for Chief Complaint Patient presents with ??? Follow-up Subjective HPI: #) Respiratory infection 04/05/22 - OV note Dr. Valdez: Patient reports coughing and wheezing for about 10 days. She has had multiple urgent care and emergency room visits near her home in [facility]. On 03/28, she wasprescribed Augmentin and doxycycline and prednisone 20 mg daily x5. She is finished both of the antibiotic prescriptions. On 03/31, she went to an emergency room because she was not feeling better andwas wheezing and she received a nebulizer treatment. She returned to an emergency room on 04/03 and was given more nebulizers and if she says that a chest x-ray showed right pneumonia. She was begun on levofloxacin and her prednisone was increased to 60 mg daily with a taper. - Dr. Washington ordered a nebulizer machine for her; advised return to ED for inpatient management ifcondition worsens. Pt presents today for follow up for recent illness. She reports that her breathing has improved. She just finished the prednisone taper and took the 4 days of levofloxacin as prescribed. She just took a course of Macrobid for a UTI. Reports that she went to urgent care for thrush over the weekend and her mouth is still hurting somewhat. Wonders if she can have an oral pill. Having some external vulvar itching and using miconazole as prescribed. She is having some other symptoms -- She is noticing some increased lower abdominal pressure, cramping and frequency. She has a history of chronic urinary leakage and wears pads. She denies dysuria, hematuria. Also c/o of some loose stools and some L sided low back pain. No blood in her stools. Endorses ear pain and pressure. Without fevers, nausea, vomiting. ROS: See Subjective history Patient Active Problem List Diagnosis Code ??? Coronary artery disease involving [place] coronary artery of [place] heart with angina pectoris I25.119 ??? Altered [...] ??? Primary osteoarthritis of both knees M17.0 Objective BP 149/76 Pulse 79 Temp 36.5 ??C (97.7 ??F) Resp 20 SpO2 99% Physical Exam Vitals reviewed. Constitutional: General: She is not in acute distress. Appearance: She is not ill-appearing. HENT: Right Ear: Tympanic membrane and ear canal normal. Left Ear: Tympanic membrane and ear canal normal. Nose: No congestion. Mouth/Throat: Pharynx: Oropharynx is clear. No oropharyngeal exudate or posterior oropharyngeal erythema. Eyes: General: No scleral icterus. Cardiovascular: Rate and Rhythm: Normal rate and regular rhythm. Pulses: Normal pulses. Heart sounds: Normal heart sounds. Pulmonary: Effort: Pulmonary effort is normal. No respiratory distress. Breath sounds: Normal breath sounds. No wheezing or rales. Rhonchi: coarse rhonchi R lung hall; clears with cough. Abdominal: General: Bowel sounds are normal. There is no distension. Tenderness: There is abdominal tenderness (general tenderness lower abdomen and suprapubic area). There is guarding (guarding somewhat over LLQ). There is no right CVA tenderness or left CVA tenderness. Comments: No rigidity. Musculoskeletal: Cervical back: Neck supple. Lymphadenopathy: Cervical: No cervical adenopathy. Skin: General: Skin is warm and dry. Findings: Rash (moist erythematous papular rash under abdominal fold) present. Neurological: Mental Status: She is alert. Comments: Slightly tangential; redirectable. Lab Results Component Value Date HA1C 9.2 (H) 04/12/2022 Assessment/Plan Alize was seen today for follow-up . Diagnoses and all orders for this visit: Acute upper respiratory infection - COPD exacerbation, pneumonia Improving after prolonged treatment course including multiple courses of antibiotics and steroids, starting 03/28. Will refill albuterol nebulizer and she should continue to use as needed, as directed. Given the prolonged recovery with pneumonia on XR 04/03, would be reasonable to check follow up chest XR - ~4-[address] order for her to have this done closer to home. Follow up sooner if respiratory symptoms worsen. Frequency of micturition - POCT urine dipstick - Comprehensive metabolic panel (non-fasting); Future - Urinalysis with reflex Culture Recently treated for UTI with incomplete resolution of urinary frequency but does also have historyof OAB. Will recheck urine. Without s/s suggestive of pyelonephritis today; but she has recently been treated with prednisone so may not mount a fever. She has a history of renal cancer and is concerned about kidney function so will check CMP - rule out IBRAHIMA. Lower abdominal pain and loose stools Suspect 2/2 recent antibiotic use, side effect. Continue to monitor closely as she is at risk for cdiff. Possibly suprapubic tenderness r/t ongoing UTI. Will recheck urine. Will call patient tomorrow to check in regarding evolution of symptoms. Type 2 diabetes mellitus with hyperglycemia, without long-term current use of insulin - Hemoglobin A1c; Future Due for A1C check. Ear pain, bilateral No sign of infection. Continue to monitor. Oral thrush Will order clotrimazole troches. Intertrigo Nystatin powder ordered. Follow up as needed and for diabetes visit. Suzanne Martinez APRN documented in this encounter Plan of Treatment Upcoming Encounters Date Type Department Care Team (Late st Contact Info) Description 03/20/2024 9:00 AM EDT TH Visit (TeleHealth) Sleep Center at [facility] [address] [place] [phone] Denisse Hardwick, [facility] 03/20/2024 2:00 PM EDT Clinical Support Family Medicine at [facility] [address] [place] [address] Julia Low, [facility] 05/01/2024 11:20 AM EDT Appointment Mammography/[place] [address] Rodney Padilla MD [address] [place] [address] 05/01/2024 1:45 PM EDT Office [place] [address] Juanpablo Hernandez MD [facility] [place] [address] 01/30/2025 1:30 PM EDT Appointment Hematology [place] [address] 01/30/2025 3:[address] [place] [address] Arturo Cordero MD [facility] [address] [place] [address] 01/30/2025 4:15 PM EDT Office Visit Hematology [place] [phone] Arturo Cordero MD [facility] [address] [place] [address] documented as of this encounter Procedures Procedure Name Priority Date/Time Associated Diagnosis Comments HC VENIPUNCTURE Routine 04/12/2022 2:20 PM EDT Type 2 diabetes mellitus with hyperglycemia, without long-term current use of insulin COMPREHENSIVE METABOLIC PANEL Routine 04/12/2022 2:20 PM EDT Frequency of micturition POCT URINE DIPSTICK Routine 04/12/2022 1 :50 PM EDT Frequency of micturition URINALYSIS WITH REFLEX CULTURE Routine 04/12/2022 1:30 PM EDT Frequency of micturition documented in this encounter Results * (ABNORMAL) Hemoglobin A1c (04/12/2022 2:20 PM EDT) [facility] Hemoglobin A1c 9.2(H) 4.3 - 5.6 % [facility] [...] Mellitus, Diabetes Care 2013; 36: Suppl. 1, S67-29 Estimated Average Glucose 217 mg/dL [facility] Comment: eAG equivalents for HbA1c percentages: HbA1c(%) ?eAG(mg/dL) 6.0 ?126 6.5 ?140 7.0 ?154 7.5 ?169 8.0 ?183 8.5 ?197 9.0 ?212 9.5 ?226 10.0 ? 240 Limitations: The eAG calculation has not been validated on women, individuals below 18 years old and above 70 years old, and individuals with hemoglobinopathies. Additional resources are available on the ADA website. Yahir GRADY, Bernadette J, Tahira R, et al. ??Translating the A1C assay into estimated average glucose values. ??Diabetes Care 2008:31(8):9066-6255. Blood 04/12/2022 2:20 PM EDT 04/12/2022 4:10 PM EDT Narrative Resulting Agency Comment Spec In Lab Suzanne Martinez APRN CHEMISTRY ORDERABL ES [facility] [place] [address] * (ABNORMAL) Comprehensive metabolic panel (non-fasting) (04/12/2022 2:20 PM EDT) Glucose 278(H) 65 - 199 mg/dL [facility] Comment:Diabetes: >=200 mg/d L plus symptoms Blood Urea Nitrogen 11 8 - 18 mg/dL [facility] Creatinine 0.96 0.70 - 1.20 mg/dL [facility] Sodium 138 135 - 145 mmol/L [facility] Potassium 4.5 3.5 - 5.0 mmol/L [facility] Comment: Please note: ??Patients with WBC >100,000 may have falsely elevated Potassium levels. ??For accurate Potassium quantification in these patients send serum separator tube (gold top) for subsequent determinations. ??Contact the Clinical Chemistry Laboratory if there are any questions. Chloride 99 98 - 107 mmol/L [facility] Carbon Dioxide 27 22 - 31 mmol/L [facility] Anion Gap 12 5 - 15 mmol/L [facility] Calcium 10.0 8.5 - 10.5 mg/dL [facility] Protein, Total 6.9 6.1 - 8.0 g/dL [facility] Albumin 4.1 3.2 - 5.2 g/dL [facility] Aspartate Aminotransferase 18 0 - 30 unit/L [facility] Alanine Aminotransferase 27 0 - 30 unit/L [facility] Alkaline Phosphatase 104 35 - 105 unit/L [facility] Bilirubin, Total 0.6 0.2 - 1.3 mg/dL [facility] Est Glomerular Filtration Rate 67 >=60 mL/min/1. 73 m?? [facility] [...] and symptoms in addition to eGFR. Blood 04/12/2022 2:20 PM EDT 04/12/2022 8:07 PM EDT Narrative Resulting Agency Comment Spec In Lab Suzanne Martinez APRN CHEMISTRY ORDERABL ES [facility] [place] [place] [address] * (ABNORMAL) POCT urine dipstick (04/12/2022 1:50 PM EDT) POC Sp [place] 1.015 1.002 - 1.030 POC pH, UA 6 5.0 - 8.5 POC Leuk, UA trace(A) Negative - Negative POC Nitrite, UA neg Negative - Negative POC Protein, UA trace(A) Negative - Negative mg/dL POC Glucose, UA 1,000(A) Normal - Normal mg/dL POC Ketone, UA neg Negative - Negative POC Urobil, UA norm 0.2 - 1.0 mg/dL POC Bili, UA neg Negative - Negative POC Blood, UA neg Negative - Negative leydi/uL 04/12/2022 1:50 PM EDT Suzanne Martinez APRN POINT OF CARE TEST ORDERABLES * (ABNORMAL) Urinalysis with reflex Culture (04/12/2022 1:30 PM EDT) Glucose, Urine Dipstick >=1000(Criti mariann) Negative mg/dL [facility] Comment: Urinalysis result NOT critical without a combination of Glucose greater than or equal to 500 mg/dL AND Ketones greater than or equal to 80 mg/dL Protein, Urine Dipstick Negative Negative mg/dL [facility] Bilirubin, Urine Dipstick Negative Negative mg/dL [facility] Comment: Clinical correlation required for positive Urine Bilirubin results as false positive may occur with some drugs and drug related products. If a false positive is suspected a serum total bilirubin should be considered if clinically indicated. Urobilinogen, Urine Dipstick Normal Normal mg/dL [facility] pH, Urn (dipstick) 6.0 5.0 - 8.0 [facility] Blood, Urine Dipstick Negative Negative mg/dL [facility] Ketone, Urine Dipstick Negative Negative mg/dL [facility] Nitrite, Urine Dipstick Negative Negative [facility] Leukocytes, Urine Dipstick Negative Negative [facility] Appearance, Urine Dipstick Clear Clear [facility] Specific [place] Urine Automated 1.024 1.005 - 1.030 [facility] Color, Urine Dipstick Yellow Yellow [facility] Reflex to Culture No [facility] Clean Catch Urine 04/12/2022 1:30 PM EDT 04/12/2022 6:54 PM EDT Narrative Resulting Agency Comment Spec In Lab Suzanne Martinez APRN URINE ORDERABLES [facility] [place] [address] documented in this encounter Visit Diagnoses Diagnosis Acute upper respiratory infection Acute upper respiratory infections of unspecified site Frequency of micturition Urinary frequency Lower abdominal pain Abdominal pain, other specified site Type 2 diabetes mellitus with hyperglycemia, without long-term current use of insulin Ear pain, bilateral Oral thrush Candidiasis of mouth Intertrigo Other specified erythematous condition documented in this encounter Care Teams Organic Preparation Technician Relationship Specialty Start Date End Date Luis E Narayan MD [facility] [address] [place] [address] PCP - General Family Medicine 01/20/22 07/17/22 documented as of this encounter
--- OUTSIDE RECORDS SUMMARY | 2024-03-04 21:22 | XMS_ITS | Encounter Summary ---
Author Organization [facility] Address [facility] [place] [address] Care Team Providers Care Delivery Of Shopping News Name Role Phone Rodney Padilla MD Primary Care Provider [phone]- [phone] Reason for Visit * Reason Onset Date Comments Medication Refill 04/14/2022 Encounter Details Date Type Department Care Team (Late st Contact Info) Description 04/14/2022 Refill Family Medicine at [facility] [address] [place] [address] Luis E Narayan MD [facility] [address] [place] [address] Social History Tobacco Use Types Packs/Day Years [...] EDT TH Visit (TeleHealth) Sleep Center at [facility] [address] [place] [address] Denisse Hardwick [facility] 03/20/2024 2:00 PM EDT Clinical Support Family Medicine at [facility] [address] [place] [address] Julia Low [facility] 05/01/2024 11:20 AM EDT Appointment Mammography/[place] [phone] Rodney Padilla MD [address] [place] [address] 05/01/2024 1:45 PM EDT Office [place] [address] Juanpablo Hernandez MD [facility] [place] [address] 01/30/2025 1:30 PM EDT Appointment Hematology and Oncology at [place] [address] 01/30/2025 3:[address] Scan at [place] [phone] Arturo Cordero MD [facility] [place]AT[place] [address] 01/30/2025 4:15 PM EDT Office Visit Hematology [place] [address] Arturo Cordero MD [facility] DR [place] [address] documented as of this encounter Visit Diagnoses Not on filedocumented in this encounter Care Teams Delivery Of Shopping News Relationship Specialty Start Date End Date Rodney Padilla MD [address] [place] [address] PCP - General 07/18/22 documented as of this encounter
--- OUTSIDE RECORDS SUMMARY | 2024-03-04 21:22 | XMS_ITS | Encounter Summary ---
Author Organization [facility] [place] [address] Care Team Providers Care Cinder Crew Worker Name Role Phone Luis E Narayan MD Primary Care Provider Reason for Referral * Consultation (Routine) - Closed Specialty Diagnoses / Procedures Referred By Gonzalez white Referred To Contact Hematology and Oncology Diagnoses History of malignant melanoma of eye Alonso Young MD [facility] [address] [place] [address] [facility] Hem Onc [address] [place] [address] Referral ID Status Reason Start Date Expiration Date V isits Requested Visits Authorized [id number] Closed Consult, Test & Treat 02/14/2022 02/14/2023 1 1 Reason for Visit * Consultation (Routine) - Closed Specialty Diagnoses / Procedures Referred By Contchrissy white Referred To Contact Dermatology Diagnoses Malignant melanoma of conjunctiva, left Givens, Shane White MD [facility] [place] [address] [facility] Dermatology [address] [place] [address] Referral ID Status Reason Start Date Expiration Date V isits Requested Visits Authorized [id number] Closed Consult, Test & Treat 11/17/2021 11/17/2022 1 1 Encounter Details Date Type Department Care Team (Late st Contact Info) Description 02/14/2022 10:00 AM EDT Office Visit Dermatology at [facility] [address] [place] [address] [facility] [address] [address] History of malignant melanoma of eye; Seborrheic keratoses; Multiple benign nevi; Solar lentigo; Skin tags, multiple acquired Social History Tobacco Use Types Packs/Day Years [...] Progress Notes * Alonso Young MD - 02/14/2022 10:00 AM EDT Images from the original note were not included. DEPARTMENT OF DERMATOLOGY Medical Dermatology Clinic Provider: Alonso Young MD Patient's preferred name Alize Preferred contact method for results [x]Phone [x]myD-H []Letter Detailed phone message OK? yes Are there any other people with whom we may discuss your care? 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 tx topical Mitomycin topically in 2020 Dysplastic nevi no SCC no BCC no AKs no UV Exposure & Protection Sun Protection: occasionally sunscreen Other relevant past medical history Hx renal cancer Heart attack Heart disease Diabetes Family History Details Melanoma no NMSC no Other relevant family history Social History Occupation: disability Hobbies: flower gardening, swimming, and walking Other: PRE-PROCEDURE SCREENING Details Allergy to lidocaine, epinephrine, Dermabond, chlorhexidine, or adhesives no Bleeding disorder or blood thinners no Pacemaker, defibrillator, deep brain stimulator, cochlear implant no History of Present Illness: Alize Gramajo is a 61 y.o. Patient is new and referred to the clinic by Shane Givens for a full skin exam with lesion of concern located at the left conjunctiva. - itching on the bilateral arms, primarily on the left arm and itching on the back - occular melanoma was taken off and she was given chemo eye drops x 2.5 weeks. She notes that there was a red-colored spot on the white part of her eye, which grew and got redder. - H/o kidney cancer - clear now. Medications: Reviewed in eD-H Allergies: Reviewed in [...] findings below. Genitalia not examined. Assessment/Plan #. 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 Benign Nevi - Scattered light to medium brown macules on the trunk and extremities with reassuring pigment pattern on dermoscopy. - Reassured of benign appearance on exam today. - Advised patient to watch for any new or changing lesions. - Reviewed warning signs of skin cancer. #. Seborrheic Keratoses - stuck on, waxy papules on the trunk and extremities, including R mormonism - Benign. No treatment needed. #. Solar lentigines - 0.3-0.6cm light-brown evenly pigmented, well-demarcated macules in a photo distributed pattern on the face, trunk and extremities. - Reassured #. Skin tags - pedunculated flesh colored papules located on the bilateral axillae - Reviewed benign nature of these lesions. #. Xerosis - Recommend Amlactin lotion Other: ??? OTC skin products discussed RTC: 6 months for a FSE []Note routed to secretary administrative assistant [x]Recall placed in scheduling system []Appointment scheduled at checkout Scribe attestation: Lavinia Bains and Sugey Rodriguez [facility] have performed the documentation for this encounter in the presence of and acting as a scribe for Alonso Young MD. I performed the above scribed service and agree with the accuracy of the documentation in this encounter. Reviewed and signed by: Alonso Young MD Dermatology [facility], [facility] Patient seen and evaluated with staff padding machine operator: Aris Taylor MD Dermatology [facility] * Aris Taylor MD - 02/14/2022 10:00 AM EDT I directly supervised Dr. Young in the care of this patient. I saw and evaluated this patient with Dr. Young. He presented the history and physical exam detailsto me, then we saw the patient together and I confirmed these findings. I agree with details as written. My physical examination confirms his findings. The assessment and plan were formulated in discussion with me at the time of visit and I agree withthem as documented. Aris Taylor MD, FAAD Staff Physician Department of Dermatology documented in this encounter Plan of Treatment Upcoming Encounters Date Type Department Care Team (Late st Contact Info) Description 03/20/2024 9:00 AM EDT TH Visit (TeleHealth) Sleep Center [facility] [address] [place] [phone] Denisse Hardwick, [facility]UC[facility] 03/20/2024 2:00 PM EDT Clinical Support Family Medicine [facility] [address] [place] [phone] Julia Low, [facility] 05/01/2024 11:20 AM EDT Appointment Mammography/[place] [address] Rodney Padilla MD [address] [place] [address] 05/01/2024 1:45 PM EDT Office [place] [address] [facility] [address] 01/30/2025 1:30 PM EDT Appointment Hematology [place] [address] 01/30/2025 3:[address] [place] [address] [facility] [place] [address] 01/30/2025 4:15 PM EDT Office Visit Hematology [place] [address] [facility] DR [place] [address] Scheduled Referrals Name Type Priority Associated Diagnoses Orde r Schedule Referral to Genetics Outpatient Referral Routine History of malignant melanoma of eye Ordered: 02/14/2022 documented as of this encounter Visit Diagnoses Diagnosis History of malignant melanoma of eye Family history of other specified malignant neoplasm Seborrheic keratoses Multiple benign nevi Benign neoplasm of skin, site unspecified Solar lentigo Other dyschromia Skin tags, multiple acquired documented in this encounter Care Teams Cinder Crew Worker Relationship Specialty Start Date End Date Luis E Narayan MD [facility] [address] [place] [address] PCP - General Family Medicine 01/20/22 07/17/22 documented as of this encounter
--- OUTSIDE RECORDS SUMMARY | 2024-03-04 21:22 | XMS_ITS | Encounter Summary ---
Author Organization [facility] Address [facility] [place] [address] Care Team Providers Care Clerk Supervisor Name Role Phone Luis E Narayan MD Primary Care Provider +1- [phone] Reason for Visit * Reason Onset Date Comments Medication Refill 01/29/2022 Encounter Details Date Type Department Care Team (Late st Contact Info) Description 01/29/2022 Refill Family Medicine at [facility] [address] [place] [phone] Luis E Narayan MD [facility] DR [address] [place] [address] Social History Tobacco Use Types Packs/Day Years [...] Telephone Encounter - Jade Kruse MA - 01/31/2022 8:42 AM EDT Prescription Refill Request Prescription(s) Requested: [...] Date of Last Refill (for each medication): 10/01/2021 Medication category req. lab studies documented in this encounter Plan of Treatment Upcoming Encounters Date Type Department Care Team (Late st Contact Info) Description 03/20/2024 9:00 AM EDT TH Visit (TeleHealth) Sleep Center at [facility] [address] [place] [address] Denisse Hardwick, [facility] 03/20/2024 2:00 PM EDT Clinical Support Family Medicine at [facility] [address] [place] [address] Julia Low, [facility] 05/01/2024 11:20 AM EDT Appointment Mammography/[place] [address] Rodney Padilla MD [address] [place] [address] 05/01/2024 1:45 PM EDT Office Visit Ophthalmology at [place] [phone] Juanpablo Hernandez MD [facility] [place] [address] 01/30/2025 1:30 PM EDT Appointment Hematology and Oncology at [place] [phone] 01/30/2025 3:[address] Scan at [place] [phone] Arturo Cordero MD [facility] [place] [address] 01/30/2025 4:15 PM EDT Office Visit Hematology [place] [address] Arturo Cordero MD [facility] HEMATOLOG[place] [address] documented as of this encounter Visit Diagnoses Not on filedocumented in this encounter Care Teams Clerk Supervisor Relationship Specialty Start Date End Date Luis E Narayan MD [facility] DR [address] [place] [address] PCP - General Family Medicine 01/20/22 07/17/22 documented as of this encounter
--- OUTSIDE RECORDS SUMMARY | 2024-03-04 21:22 | XMS_ITS | Encounter Summary ---
Author Organization [facility] Address [facility] [place] [address] Care Team Providers Care Vp Strategy Name Role Phone Luis E Narayan MD Primary Care Provider [phone]- [phone] Reason for Visit * Reason Onset Date Comments Medication Refill 03/25/2022 Encounter Details Date Type Department Care Team (Late st Contact Info) Description 03/25/2022 Refill Family Medicine at [facility] [address] [place] [address] Cuate Solis PA [facility] DR [address] [place] [address] Essential hypertension Social History Tobacco Use Types [...] Telephone Encounter - Jade Kruse MA - 03/28/2022 10:22 AM EDT Prescription Refill Request Prescription(s) Requested: Requested Prescriptions Pending Prescriptions Disp Refills ??? clopidogreL (Plavix) 75 mg Tablet 90 tablet 3 Sig: Take 1 tablet by mouth daily. ??? loratadine (Claritin) 10 mg Tablet 90 tablet 3 Sig: Take 1 tablet by mouth daily. ??? metoprolol succinate XL (Toprol XL) 25 mg Tablet Sustained Release 24 hr 90 tablet 3 Sig: Take 1 tablet by mouth daily. ??? amLODIPine (Norvasc) 5 mg Tablet 90 tablet 3 Sig: Take 1 tablet by mouth daily. Date of Encounter last in This Dept (If over a year and no apt scheduled send to secretaries to schedule): 11/16/2021 Sylvain Next Encounter in This Dept: Visit date not found Date of Last Refill (for each medication): 02/11/2022 for all 4 Medication category req. lab studies Lab Results [...] Center at [facility] [address] [place] [phone] Denisse Hardwick, [facility] 03/20/2024 2:00 PM EDT Clinical Support Family Medicine at [facility] [address] [place] [phone] Julia Low, [facility] 05/01/2024 11:20 AM EDT Appointment Mammography/[place] [phone] Rodney Padilla MD [address] [facility] [place] [address] 05/01/2024 1:45 PM EDT Office [place] [phone] Juanpablo Hernandez MD [facility] [place] [address] 01/30/2025 1:30 PM EDT Appointment Hematology [place] [phone] 01/30/2025 3:[address] [place] [address] Arturo Cordero MD [facility] [place] [address] 01/30/2025 4:15 PM EDT Office Visit Hematology and Oncology at [facility] [place] [address] Arturo Cordero MD [facility] [place] [address] documented as of this encounter Visit Diagnoses Diagnosis Essential hypertension Unspecified essential hypertension documented in this encounter Care Teams Vp Strategy Relationship Specialty Start Date End Date Luis E Narayan MD [facility] [address] [place] [address] PCP - General Family Medicine 01/20/22 07/17/22 documented as of this encounter
--- OUTSIDE RECORDS SUMMARY | 2024-03-04 21:22 | XMS_ITS | Encounter Summary ---
Author Organization Replaced By [facility] [place] [address] Care Team Providers Care Surveillance Sensor Officer Name Role Phone Luis E Narayan MD Primary Care Provider [phone]- [phone] Reason for Referral * Consultation (Routine) - Closed Specialty Diagnoses / Procedures Referred By Gonzalez kumari Referred To Contact Weight and Wellness Diagnoses Diarrhea, unspecified type Obesity, unspecified classification, unspecified obesity type, unspecified whether serious comorbidity present Kelsey Pacheco DO [address] [place] [address] [address] [place] [address] [facility] [address] [place] [address] Referral ID Status Reason Start Date Expiration Date V isits Requested Visits Authorized [id number] Closed Consult, Test & Treat PCP Updated and/or Approved 01/20/2022 01/20/2023 1 1 Encounter Details Date Type Department Care Team (Late st Contact Info) Description 01/20/2022 Transcribe Orders eDH Incoming Referrals [phone] Kelsey Pacheco DO [address] [place] [address] [address] [place], [place] [id number] Diarrhea, unspecified type; Obesity, unspecified classification, unspecified obesity type, unspecified whether serious comorbidity [...] (TeleHealth) Sleep Center at [facility] [address] [place] [address] Denisse Hardwick, [facility] 03/20/2024 2:00 PM EDT Clinical Support Family Medicine at [facility] [address] [place] [address] Julia Low, [facility] 05/01/2024 11:20 AM EDT Appointment Mammography/[place] [phone] Rodney Padilla MD [address] [facility] [place] [address] 05/01/2024 1:45 PM EDT Office Visit Ophthalmology at [place] [phone] Juanpablo Hernandez MD [facility] [place] [address] 01/30/2025 1:30 PM EDT Appointment Hematology and Oncology at [place] [phone] 01/30/2025 3:[address] Scan at [place] [phone] Arturo Cordero MD [facility] [place] [address] 01/30/2025 4:15 PM EDT Office Visit Hematology [place] [address] Arturo Cordero MD [facility] [place] [address] Scheduled Referrals Name Type Priority Associated Diagnoses Orde r Schedule Referral to [facility] Outpatient Referral Routine Diarrhea, unspecified type Obesity, unspecified classification, unspecified obesity type, unspecified whether serious comorbidity present Ordered: 01/20/2022 documented as of this encounter Visit Diagnoses Diagnosis Diarrhea, unspecified type Obesity, unspecified classification, unspecified obesity type, unspecified whether serious comorbidity present documented in this encounter Care Teams Surveillance Sensor Officer Relationship Specialty Start Date End Date Luis E Narayan MD [facility] [place] [address] PCP - General Family Medicine 01/20/22 07/17/22 documented as of this encounter
--- OUTSIDE RECORDS SUMMARY | 2024-03-04 21:22 | XMS_ITS | Encounter Summary ---
Author Organization [facility] [place] [address] Care Team Providers Care Welcome Hostess Name Role Phone Luis E Narayan MD Primary Care Provider Encounter Details Date Type Department Care Team (Late st Contact Info) Description 03/21/2022 1:09 PM EDT - 03/21/2022 11:59 PM EDT Hospital Encounter [place] [address] Leandra Black, EMISSIONS TESTING TECHNICIAN [facility] DR HEMATOLOGY [place] [address] Malignant melanoma of conjunctiva, left Discharge Disposition: [...] 1 each 12/10/2021 02/04/2023 FreeStyle Sanjana 2 Lagrange MiscIndications:diabetes mellitus 1 each by Other route daily. Indications: diabetes mellitus 1 each 10/26/2021 01/23/2023 FreeStyle Sanjana 2 Sensor KitIndications:diabetes mellitus 1 each by Other route every 14 days. Indications: diabetes mellitus 2 kit 10/26/2021 01/23/2023 FreeStyle Lancets 28 gauge MiscIndications:diabetes mellitus 1 each by Other route 3 times daily. Indications: diabetes mellitus 100 each 11 10/11/2021 06/16/2022 fluticasone propionate (Flonase) 50 mcg/actuation [place], Suspension 1 spray by Each Nare route [...] [facility] [place] [phone] Denisse Hardwick, [facility] 03/20/2024 2:00 PM EDT Clinical Support Family Medicine at [facility] [address] [place] [phone] Julia Low [facility] 05/01/2024 11:20 AM EDT Appointment Mammography/[place] [address] Rodney Padilla MD [address] [facility] [place], [place] [phone] 05/01/2024 1:45 PM EDT Office [place] [address] Juanpablo Hernandez MD [facility] [place] [address] 01/30/2025 1:30 PM EDT Appointment Hematology and Oncology at [place] [phone] 01/30/2025 3:[address] Scan at [place] [phone] Arturo Cordero MD [facility] [place] [address] 01/30/2025 4:15 PM EDT Office Visit Hematology [place] [address] Arturo Cordero MD [facility] DR HEMATOLOGY [place] [address] documented as of this encounter Procedures Procedure Name Priority Date/Time Associated Diagnosis Comments US SOFT TISSUE HEAD OR NECK Routine 03/21/2022 1:36 PM EDT Malignant melanoma of conjunctiva, left documented in this encounter Results * US Soft Tissue Head Or Neck (03/21/2022 1:36 PM EDT) Anatomical Region Laterality Modality Ultrasound 03/21/2022 1:33 PM EDT Impressions 03/21/2022 2:05 PM EDT Normal sonographic appearance of bilateral cervical lymph nodes. I have personally reviewed the image(s) and the resident's interpretation and agree with the findings, Roland Izaguirre MD at 03/21/2022 1:56 PM Electronically signed by: Roland Izaguirre MD, [facility] ([phone]), at 03/21/2022 1:56 PM Thank you for letting us participate in the care of this patient. If you are a health care provider and have any questions regarding this report, please contact the number above. For patients who have questions, please contact the health care nurse rn that requested your imaging first. ? Roland Izaguirre, Staff Physician Electronically Signed Final Report ?? 03/21/2022 02:04 pm Narrative 03/21/2022 2:05 PM EDT Ultrasound Lymph Node ? (Signed Final 03/21/2022 02:04 pm) Report PATIENT INFO: ID #: ? [id number] ?: ??58 (61 yrs)(F) Name: ? PATIENCE MANJARREZ ? Visit Date: 03/21/2022 01:33 pm PERFORMED BY: Performed By: ? Stephany Pittman RDMS Attending: ?Dmitriy COLVIN, Roland Fung Resident: ? Rojelio COLVIN, Gia Davalos Referred By: ?LEANDRA BLACK Location: ? [place] SERVICE(S) PROVIDED: USTN - Soft Tissue Neck or Head - [id number] ? [id number] INDICATIONS: History of left eye conjunctival melanoma s/p resection, [facility] imaging of left neck ran [place] --------- FINDINGS: --------- Title: ? Ultrasound Lymph Node Report Findings: ?Several visualized lymph nodes, largest measures ?1.6 cm left level 2. Procedure Note Roland Izaguirre MD - 03/21/2022 Ultrasound Lymph Node (Signed Final 03/21/2022 02:04 pm) Report PATIENT INFO: ID #: [id number] : 58 (61 yrs)(F) Name: PATIENCE MANJARREZ Visit Date: 03/21/2022 01:33 pm PERFORMED BY: Performed By: Stephany Pittman RDMS Attending: Roland Izaguirre MD Resident: Gia Serrato MD Referred By: LEANDRA BLACK Location: [place] SERVICE(S) PROVIDED: USTN - Soft Tissue Neck or Head - [id number] INDICATIONS: History of left eye conjunctival melanoma [...] PM Electronically signed by: Roland Izaguirre MD, [facility] ([phone]), at 03/21/2022 1:56 PM Thank you for letting us participate in the care of this patient. If you are a health care provider and have any questions regarding this report, please contact the number above. For patients who have questions, please contact the health care nurse rn that requested your imaging first. Roland Izaguirre, Staff Physician Electronically Signed Final Report 03/21/2022 02:04 pm Leandra Black APRN IMG US GEN ORDERAB LES documented in this encounter Visit Diagnoses Diagnosis Malignant melanoma of conjunctiva, left documented in this encounter Care Teams Welcome Hostess Relationship Specialty Start Date End Date Luis E Narayan MD [facility] [address] [address] PCP - General Family Medicine 01/20/22 07/17/22 documented as of this encounter
--- OUTSIDE RECORDS SUMMARY | 2024-03-04 21:22 | XMS_ITS | Encounter Summary ---
Author Organization [facility] [place] [address] Care Team Providers Care Barrel Waterer Name Role Phone Luis E Narayan MD Primary Care Provider [phone] Reason for Referral * Diagnostic Test (Routine) - Closed Specialty Diagnoses / Procedures Referred By Contac t Referred To Contact Radiology Diagnoses Malignant melanoma of conjunctiva, left Malignant melanoma, unspecified site Procedures CT Neck Soft Tissue w Contrast (Generic) Leandra Lopes APRN [facility] [address] [place] [address] [facility] [place] [address] Referral ID Status Reason Start Date Expiration Date V isits Requested Visits Authorized [id number] Closed Specialty Service Requested 12/23/2021 07/09/2022 1 1 * Diagnostic Test (Routine) - Closed Specialty Diagnoses / Procedures Referred By Contac t Referred To Contact Radiology Diagnoses Malignant melanoma of conjunctiva, left Malignant melanoma, unspecified site Procedures CT Chest Abdomen Pelvis w Contrast (Generic) Leandra Lopes APRN [facility] [address] [place] [address] [facility] [place] [address] Referral ID Status Reason Start Date Expiration Date V isits Requested Visits Authorized [id number] Closed Specialty Service Requested 12/23/2021 07/09/2022 1 1 Reason for Visit * Diagnostic Test (Routine) - Closed Specialty Diagnoses / Procedures Referred By Contchrissy t Referred To Contact Radiology Diagnoses Malignant melanoma of conjunctiva, left Malignant melanoma, unspecified site Procedures CT Chest Abdomen Pelvis w Contrast (Generic) Leandra Lopes APRN [facility] [address] [place] [address] [facility] [place] [address] Referral ID Status Reason Start Date Expiration Date V isits Requested Visits Authorized [id number] Closed Specialty Service Requested 12/23/2021 07/09/2022 1 1 Encounter Details Date Type Department Care Team (Late st Contact Info) Description 12/23/2021 12:07 PM EDT - 12/23/2021 12:34 PM EDT Hospital [place] [address] Leandra Lopes APRN [facility] [address] [place] [address] Malignant melanoma of conjunctiva, left; Malignant melanoma, unspecified site Discharge Disposition: Home Social History Tobacco Use [...] each 11 12/10/2021 02/04/2023 FreeStyle Sanjana 2 [place] MiscIndications:diabetes mellitus 1 each by Other route [...] 10/01/2021 01/29/2022 fluticasone propionate (Flonase) 50 mcg/actuation [place], Suspension 1 spray by Each Nare route [...] at [facility] [address] [address] Denisse Hardwick, [facility] 03/20/2024 2:00 PM EDT Clinical Support Family Medicine at [facility] [address] [place] [address] Julia Low RPH 05/01/2024 11:20 AM EDT Appointment Mammography/[place] [address] Rodney Padilla MD [address] [facility] [place], [place] [id number] 05/01/2024 1:45 PM EDT Office [place] [address] Juanpablo Hernandez MD [facility] [place] [address] 01/30/2025 1:30 PM EDT Appointment Hematology [place] [address] 01/30/2025 3:[address] [place] [address] Arturo Cordero MD [facility] [address] [place] [address] 01/30/2025 4:15 PM EDT Office Visit Hematology [place] [address] Arturo Cordero MD [facility] [address] [place] [address] documented as of this encounter Procedures Procedure Name Priority Date/Time Associated Diagnosis Comments CT CHEST ABDOMEN PELVIS W CONTRAST (GENERIC) Routine 12/23/2021 2:41 PM EDT Malignant melanoma of conjunctiva, left Malignant melanoma, unspecified site CT NECK SOFT TISSUE W CONTRAST Routine 12/23/2021 2:41 PM EDT Malignant melanoma of conjunctiva, left Malignant melanoma, unspecified site documented in this encounter Results * CT Neck Soft Tissue w Contrast (Generic) (12/23/2021 2:41 PM EDT) Anatomical Region Laterality Modality Neck, Head Computed Tomogra phy 12/23/2021 3:05 PM EDT Impressions 12/24/2021 8:15 AM EDT No evidence of metastasis within the neck. Thank you for letting us participate in the care of this patient. ??If you are a health care provider and have any questions regarding this report, please contact the number below. ??For patients who have questions please contact the health aged or disabled care worker that requested your imaging first. ? Electronically signed by: Davin Corbett MD, [facility] ([phone]), at 12/24/2021 8:15 AM Narrative 12/24/2021 8:15 AM EDT EXAMINATION: CT NECK SOFT TISSUE W CONTRAST (GENERIC) CLINICAL HISTORY: Skin cancer, surveillance Left eye conjunctiva melanoma high risk rule out distant mets. Last CT on 06/24/2021, please connect with CAP CT TECHNIQUE: CT neck performed after the intravenous administration of contrast. . COMPARISON: CT neck of 12/17/2020 FINDINGS: No mass or lymphadenopathy is present within the neck. The salivary glands are of normal appearance. No airway lesion is present. The orbits are only partially imaged but show no mass in the imaged portions. No expansile or lytic bone lesion is present. Vascular structures are of normal appearance with the exception of mural calcification at the carotid bifurcations. Visible portions of the lung apices appear to be normal. Imaged portions the brain show no enhancing mass. Procedure Note Davin Corbett MD - 12/24/2021 EXAMINATION: CT NECK SOFT TISSUE W CONTRAST (GENERIC) CLINICAL HISTORY: Skin cancer, surveillance Left eye conjunctiva melanoma high risk rule out distant mets. Last CTon 06/24/2021, please connect with CAP CT TECHNIQUE: CT neck performed after the intravenous administration of contrast. . COMPARISON: CT neck of 12/17/2020 FINDINGS: No mass or lymphadenopathy is present within the neck. The salivary glandsare of normal appearance. No airway lesion is present. The orbits are onlypartially imaged but show no mass in the imaged portions. No expansile or lyticbone lesion is present. Vascular structures are of normal appearance with the exception of mural calcification at the carotid bifurcations. Visibleportions of the lung apices appear to be normal. Imaged portions the brain showno enhancing mass. IMPRESSION No evidence of metastasis within the neck. Thank you for letting us participate in the care of this patient. If youare a health care provider and have any questions regarding this report,please contact the number below. For patients who have questions please contactthe health aged or disabled care worker that requested your imaging first. Electronically signed by: Davin Corbett MD, [facility]([phone]), at 12/24/2021 8:15 AM Leandra Lopes APRN IMG CT ORDERABLES * CT Chest Abdomen Pelvis w Contrast (Generic) (12/23/2021 2:41 PM EDT) Anatomical Region Laterality Modality Abdomen, Pelvis Computed Tomogra phy 12/23/2021 3:05 PM EDT Impressions 12/23/2021 3:09 PM EDT 1. ??No significant interval changes. 2. ??No metastatic disease in the chest abdomen or pelvis. 3. ??Post left lower pole partial nephrectomy without evidence of local recurrence on this single phase examination. Please include renal cancer history on future imaging studies for multiphase renal evaluation. 4. ??Hepatic steatosis. Thank you for letting us participate in the care of this patient. ??If you are a health care provider and have any questions regarding this report, please contact the number below. ??For patients who have questions please contact the health aged or disabled care worker that requested your imaging first. ? Electronically signed by: Milo Kaye MD, [facility] ([phone]), at 12/23/2021 3:09 PM Narrative 12/23/2021 3:09 PM EDT EXAMINATION: CT CHEST ABDOMEN PELVIS W CONTRAST (GENERIC) CLINICAL HISTORY: Melanoma, staging Left eye conjunctiva melanoma high risk rule out distant mets. Last CT on 06/24/2021, please do neck CT as well. TECHNIQUE: Helical CT of the chest, abdomen, and pelvis was performed following the intravenous administration of 120.0 ml of OMNIPAQUE 350.00 mg/ml. Oral contrast was administered. COMPARISON: CT chest abdomen and pelvis 06/24/2021 FINDINGS: Chest: Lungs and large airways: Normal. Pleura: No effusion. Heart/vasculature: Normal heart size. No pericardial effusion or thoracic aortic aneurysm. Mild atherosclerotic calcifications of the aorta and coronary arteries. No central pulmonary embolism. Lymph nodes: No enlarged lymph nodes. Mediastinum and bess: Normal. Abdomen/pelvis: Liver: Normal size, no lesions. Mild diffuse hypoattenuation consistent with steatosis. Bile ducts: Nondilated. Gallbladder: No calcified gallstones. Normal caliber wall. Pancreas: Normal attenuation without ductal dilatation. Spleen: Normal. Adrenals: Normal right adrenal gland. Stable 20 mm left adrenal adenoma. Kidneys: Normal right kidney. Left lower pole partial nephrectomy associated with linear perinephric opacities not significantly changed from the prior examination. Urinary Bladder: Normal. Vasculature: Mild atherosclerotic calcifications Lymph Nodes: ??No enlarged lymph nodes. Bowel: Nondilated, no wall thickening. ?? Peritoneum and mesentery: No ascites, free air, or loculated fluid collection. No mesenteric inflammation. Abdominal wall: Small fat-containing right inguinal hernia. Reproductive organs: Normal. Osseous structures: No suspicious lesions. Procedure Note Milo Kaye MD - 12/23/2021 EXAMINATION: CT CHEST ABDOMEN PELVIS W CONTRAST (GENERIC) CLINICAL HISTORY: Melanoma, staging Left eye conjunctiva melanoma high risk rule out distant mets. Last CTon 06/24/2021, please do neck CT as well. TECHNIQUE: Helical CT of the chest, abdomen, and pelvis was performedfollowing the intravenous administration of 120.0 ml of OMNIPAQUE 350.00 mg/ml.Oral contrast was administered. COMPARISON: CT chest abdomen and pelvis 06/24/2021 FINDINGS: Chest: Lungs and large airways: Normal. Pleura: No effusion. Heart/vasculature: Normal heart size. No pericardial effusion or thoracicaortic aneurysm. Mild atherosclerotic calcifications of the aorta and coronary arteries. No central pulmonary embolism. Lymph nodes: No enlarged lymph nodes. Mediastinum and bess: Normal. Abdomen/pelvis: Liver: Normal size, no lesions. Mild diffuse hypoattenuation consistentwith steatosis. Bile ducts: Nondilated. Gallbladder: No calcified gallstones. Normal caliber wall. Pancreas: Normal attenuation without ductal dilatation. Spleen: Normal. Adrenals: Normal right adrenal gland. Stable 20 mm left adrenal adenoma. Kidneys: Normal right kidney. Left lower pole partial nephrectomyassociated with linear perinephric opacities not significantly changed from theprior examination. Urinary Bladder: Normal. Vasculature: Mild atherosclerotic calcifications Lymph Nodes: No enlarged lymph nodes. Bowel: Nondilated, no wall thickening. Peritoneum and mesentery: No ascites, free air, or loculated fluidcollection. No mesenteric inflammation. Abdominal wall: Small fat-containing right inguinal hernia. Reproductive organs: Normal. Osseous structures: No suspicious lesions. IMPRESSION 1. No significant interval changes. 2. No metastatic disease in the chest abdomen or pelvis. 3. Post left lower pole partial nephrectomy without evidence of local recurrence on this single phase examination. Please include renal cancerhistory on future imaging studies for multiphase renal evaluation. 4. Hepatic steatosis. Thank you for letting us participate in the care of this patient. If youare a health care provider and have any questions regarding this report,please contact the number below. For patients who have questions please contactthe health aged or disabled care worker that requested your imaging first. Electronically signed by: Milo Kaye MD, [facility]([phone]), at 12/23/2021 3:09 PM Leandra Lopes APRN IMG CT ORDERABLES documented in this encounter Visit Diagnoses Diagnosis Malignant melanoma of conjunctiva, left Malignant melanoma, unspecified site documented in this encounter Administered Medications Inactive Administered Medications - up to 3 most recent administrations Medication Order MAR Action Action Date Dose Rate Site barium sulfate (Readi-Cat) 2.0 % (w/v) oral liquid 450-900 mL 450-900 mL, Oral, ONCE PRN, 1 dose, Starting on Carolee 6/16/22 at 1441, Until Carolee 12/23/21 at 1441, Per Protocol, Radiology Contrast, Routine Given 12/23/2021 2:41 PM EDT 900 mLs iohexoL (Omnipaque) (350 mg/mL) solution 0-200 mL 0-200 mL, Intravenous, ONCE PRN, 1 dose, Starting on Carolee 12/23/21 at 1441, Until Carolee 12/23/21 at 1441, Per Protocol, Warning Vesicant/Irritant Medication , Radiology Contrast, Routine Given 12/23/2021 2:41 PM EDT 120 mLs documented in this encounter Care Teams Barrel Waterer Relationship Specialty Start Date End Date Luis E Narayan MD [facility] [address] [place] [address] PCP - General Family Medicine 03/26/19 01/19/22 documented as of this encounter
--- OUTSIDE RECORDS SUMMARY | 2024-03-04 21:22 | XMS_ITS | Encounter Summary ---
Author Organization [facility] Address [facility] [place] [address] Care Team Providers Care Cardiology Rn Name Role Phone Rodney Padilla MD Primary Care Provider [phone] Reason for Visit * Reason Onset Date Comments Medication Refill 03/25/2022 Encounter Details Date Type Department Care Team (Late st Contact Info) Description 03/25/2022 Refill Family Medicine at [facility] [address] [place] [address] Luis E Narayan MD [facility] [address] [facility] [address] Essential hypertension Social History Tobacco Use Types [...] at [facility] [address] [place] [address] Denisse Hardwick [facility] 03/20/2024 2:00 PM EDT Clinical Support Family Medicine at [facility] [address] [place] [address] Julia Low [facility] 05/01/2024 11:20 AM EDT Appointment Mammography/[place] [phone] Rdoney Padilla MD [address] [place] [address] 05/01/2024 1:45 PM EDT Office [place] [address] Juanpablo Hernandez MD [facility] [place] [address] 01/30/2025 1:30 PM EDT Appointment Hematology and Oncology at [place] [address] 01/30/2025 3:[address] Scan at [place] [phone] Arturo Cordero MD [facility] DR HEMATOLOGY [place] [address] 01/30/2025 4:15 PM EDT Office Visit Hematology and Oncology at [place] [phone] Arturo Cordero MD [facility] DR HEMATOLOGY [place] [address] documented as of this encounter Visit Diagnoses Diagnosis Essential hypertension Unspecified essential hypertension documented in this encounter Care Teams Cardiology Rn Relationship Specialty Start Date End Date Rodney Padilla MD [address] [place] [address] PCP - General 07/18/22 documented as of this encounter
--- OUTSIDE RECORDS SUMMARY | 2024-03-04 21:23 | XMS_ITS | Encounter Summary ---
Author Organization [facility] Address [facility] [place] [address] Care Team Providers Care Manager Area Name Role Phone Luis E Narayan MD Primary Care Provider [phone] Reason for Visit * Reason Onset Date Comments Appointment 08/20/2021 Encounter Details Date Type Department Care Team (Late st Contact Info) Description 08/20/2021 Telephone Family Medicine at [facility] [address] [place] [address] Luis E Narayan MD [facility] [address] [place] [address] Appointment Social History Tobacco Use Types Packs/Day [...] encounter Miscellaneous Notes * Telephone Encounter - Silvio Alonzo - 08/20/2021 9:12 AM EST Memamp Message sent to patient * Telephone Encounter - Dixon Billings - 08/20/2021 8:45 AM EST Message: Patient calling in regards to having their appointment for 08.20.21 rescheduled as soon aspossible. Patient states it said in her MyDH that it was changed to a telehealth visit and she received a message stating that it was changed. [employer] was unable to find any message and the appointment showed as Office Visit not telehealth. Patient is unable to make it and flex o writer operator was unable to find appointment within timeframe patient was looking for Ask caller their first and last name and relationship to the patient: Alize Gramajo Best time to call back: Any Ok to leave a message: yes Ok to send [employer] message: yes Offered Appointment: Yes MA/Nurse/Heel Stainer contacted via: Message: Yes Call: n/a Pager: n/a documented in this encounter Plan of Treatment Upcoming Encounters Date Type Department Care Team (Late st Contact Info) Description 03/20/2024 9:00 AM EDT TH Visit (TeleHealth) Sleep Center at [facility] [address] [place] [address] Denisse Hardwick, [facility] 03/20/2024 2:00 PM EDT Clinical Support Family Medicine at [facility] [address] [place] [address] Julia Low, [facility] 05/01/2024 11:20 AM EDT Appointment Mammography/DXA at [place] [phone] Rodney Padilla MD [address] [facility] [place], [place] [address] 05/01/2024 1:45 PM EDT Office Visit Ophthalmology at [place] [phone] Juanpablo Hernandez MD [facility] [place] [address] 01/30/2025 1:30 PM EDT Appointment Hematology and Oncology at [place] [phone] 01/30/2025 3:[address] Scan at [place] [phone] Arturo Cordero MD [facility] HEMATOLOGY [place] [address] 01/30/2025 4:15 PM EDT Office Visit Hematology [place] [address] Arturo Cordero MD [facility] [place] [address] documented as of this encounter Visit Diagnoses Not on filedocumented in this encounter Care Teams Manager Area Relationship Specialty Start Date End Date Luis E Narayan MD [facility] [address] [place] [address] PCP - General Family Medicine 03/26/19 01/19/22 documented as of this encounter
--- OUTSIDE RECORDS SUMMARY | 2024-03-04 21:23 | XMS_ITS | Encounter Summary ---
Author Organization [facility] Address [facility] [place] [address] Care Team Providers Care Front Office Specialist Name Role Phone Luis E Narayan MD Primary Care Provider [phone]- [phone] Encounter Details Date Type Department Care Team (Late st Contact Info) Description 11/08/2021 Telephone Family Medicine at [facility] [address] [place] [phone] Luis E Narayan MD [facility] [address] [place] [address] Social History Tobacco Use Types Packs/Day Years [...] encounter Miscellaneous Notes * Telephone Encounter - Nakia Guillen RN - 11/08/2021 9:23 AM EDT Identified by name and CC: Abdominal bloating x 4 days Alize has had fatty liver,essential hypertension,TITO, Type 2 DM without insulin, COPD And renal cancer. Alize states that since 11/04 she had felt increasingly uncomfortable with Abdominal bloating. She denies any pain but bloating +++ with an increase in Gas po and pr. She has been walking 1-2 miles a day to try to relieve this uncomfortable sensation. She denies fever, nausea, vomiting or diarrhea or bloody stool. Does not feel more fatigued- states the Bloating presses up under her sternal area. Denies any change in diet- rarely drinks soda, and avoids alcohol, soicy or fatty foods. Reviewed medications with her- she had not being taking the Sucralfate - only on prn basis - stopped over a month ago- Instructed to resume and take as prescribed- 4 x a day - had not picked up the simethicone medication rxed last year. Sshe admits to Be being stressed- reviewed the 4-4-4-4 breathing and listening to quiet music . Shestated she used to Do the breathing and it hasd helped Had a long conversation re smoking- continues to smoke a pkg a day. Reviewed setting a Cessation date and reducng 1 cig a day for next 2 weeks. She is in the precontemplation stage of change- Given much support re smoking cessation. Plan: Will continue with the Sucralfate 4x a day. Reduce Her smoking by 1 cigarette per day Continue to walk at least 1 mile a day Do the 4 sq breathing 4x a day Has appt with Sal Low next week- If not feeling any better she will make an appt with PCP documented in this encounter Plan of Treatment Upcoming Encounters Date Type Department Care Team (Late st Contact Info) Description 03/20/2024 9:00 AM EDT TH Visit (TeleHealth) Sleep Center at [facility] [address] [place] [phone] Denisse Hardwick, [facility] 03/20/2024 2:00 PM EDT Clinical Support Family Medicine at [facility] [address] [place] [address] Julia Low, [facility] 05/01/2024 11:20 AM EDT Appointment Mammography/[place] [address] Rodney Padilla MD [address] [facility] [place], [place] [phone] 05/01/2024 1:45 PM EDT Office [place] [address] Juanpablo Hernandez MD [facility] [place] [address] 01/30/2025 1:30 PM EDT Appointment Hematology [place] [address] 01/30/2025 3:[address] [place] [address] Arturo Cordero MD [facility] [place] [address] 01/30/2025 4:15 PM EDT Office Visit Hematology [place] [address] Arturo Cordero MD [facility] [place] [address] documented as of this encounter Visit Diagnoses Not on filedocumented in this encounter Care Teams Front Office Specialist Relationship Specialty Start Date End Date Luis E Narayan MD [facility] [address] [place] [address] PCP - General Family Medicine 03/26/19 01/19/22 documented as of this encounter
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
--- OUTSIDE RECORDS SUMMARY | 2024-03-04 21:23 | XMS_ITS | Encounter Summary ---
Author Organization [facility] Address [facility] [place] [address] Care Team Providers Care Geothermal Powerplant Supervisor Name Role Phone Rodney Padilla MD Primary Care Provider [phone]- [phone] Reason for Visit * Reason Onset Date Comments Medication Refill 10/11/2021 Encounter Details Date Type Department Care Team (Late st Contact Info) Description 10/11/2021 Refill Family Medicine at [facility] [address] [place] [address] Luis E Narayan MD [facility] [address] [facility] [address] Type 2 diabetes mellitus without long-term current [...] Telephone Encounter - Alejandra Posadas RN - 11/04/2022 5:05 PM EDT Prescription Renewal Request Name: Alize Gramajo : 1960 Prescription(s) Requested: Requested Prescriptions Pending Prescriptions Disp Refills ??? Alcohol Swabs Pads, Medicated 100 each 3 Sig: Apply 1 each topically daily. Date of Encounter last in This Dept (If need an appointment send to secretaries to schedule): 07/07/22 Next Encounter in This Dept: 10/26/2021 Date of Last Refill (for each medication): 08/06/2021 Medication category requirements (labs etc): supplies Status of request: Pended Allergies Allergen Reactions ??? Codeine Phosphate Nausea And Vomiting ??? Erythromycin Base Nausea Only ??? Azithromycin ??? Ibuprofen Stomach upset ??? Lisinopril cough ??? Nsaids (Non-Steroidal Anti-Inflammatory Drug) Nausea And Vomiting Alejandra Posadas RN 11/04/22 5:06 PM documented in this encounter Plan of Treatment Upcoming Encounters Date Type Department Care Team (Late st Contact Info) Description 03/20/2024 9:00 AM EDT TH Visit (TeleHealth) Sleep Center at [facility] [address] [place] [phone] Denisse Hardwick, [facility] 03/20/2024 2:00 PM EDT Clinical Support Family Medicine at [facility] [address] [place] [address] Julia Low, [facility] 05/01/2024 11:20 AM EDT Appointment Mammography/DXA at [place] [phone] Rodney Padilla MD [address] [facility] [place], [place] [id number] 05/01/2024 1:45 PM EDT Office Visit Ophthalmology at [place] [phone] Juanpablo Hernandez MD [facility] [place] [address] 01/30/2025 1:30 PM EDT Appointment Hematology [place] [address] 01/30/2025 3:[address] [place] [address] Arturo Cordero MD [facility] HEMATOLOGY [place] [address] 01/30/2025 4:15 PM EDT Office Visit Hematology [place] [address] Arturo Cordero MD [facility] DR HEMATOLOGY [place] [address] documented as of this encounter Visit Diagnoses Diagnosis Type 2 diabetes mellitus without long-term current use of insulin documented in this encounter Care Teams Geothermal Powerplant Supervisor Relationship Specialty Start Date End Date Rodney Padilla MD [address] [place] [address] PCP - General 07/18/22 documented as of this encounter
--- OUTSIDE RECORDS SUMMARY | 2024-03-04 21:23 | XMS_ITS | Encounter Summary ---
Author Organization [facility] Address [facility] [place] [address] Care Team Providers Care Bushwalking Guide Name Role Phone Luis E Narayan MD Primary Care Provider [phone]- [phone] Reason for Visit * Reason Comments Diabetes Encounter Details Date Type Department Care Team (Late st Contact Info) Description 09/09/2021 2:00 PM EST TH Visit (TeleHealth) Family Medicine at [facility] [address] [place] [address] Julia Low, [facility] Type 2 [...] Progress Notes * Julia Low RPH - 09/09/2021 2:00 PM EST Images from the original note were not included. Clinical Pharmacist Consultation; Julia Low RPH Visit Type: Telehealth Phone Diabetes Mellitus (DM) Medication Management Summary of Recommendations & Next Steps: The following are recommendations from DM visit on 09/09/21. Please see notes below for more details and complete visit summary. Signed DM or Metabolic Syndrome collaborative practice agreement (CPA)? yes Recommended changes: List all current antidiabetic med names, dose, frequency ?? Start Ozempic 0.25 mg once weekly now that med is covered by insurance ?? Continue metformin 1000 mg BID Lifestyle Modification Goals: ?? Continue SMBG once daily (FBG) ?? Ongoing Goal: no longer decreasing cigarette use, but able to identify her own reason to continue to consider quitting. Will ask if she Is ready to make a quit date at follow up ?? Diet goals: reviewed CHO counting. Pt will be mindful of CHO portions in meals Follow up plan: ??? Follow up in 2 weeks to review start of Ozempic, SMBG, and adjust antidiabetic regimen as indicated Subjective: Patient ID: Alize Gramajo is a 60 y.o. 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 Start Ozempic 0.25 mg once weekly ?? Continue metformin 1000 mg BID Lifestyle Modification Goals: ?? Continue SMBG once daily (FBG) ?? Ongoing Goal: each week cut back one cigarette a day and set a quit date ?? Diet goals: add vegetable to lunch and find nutritional substitute for cookies in the evening. Follow up plan: ??? Follow up on September 09 at 2pm to review tolerance of Ozempic, SMBG, and adjust antidiabetic regimen as indicated Antidiabetic Regimen (Start of Appointment): - metformin 1000 mg BID - Unable to start Ozempic when switched to Medicare because it was not covered. Now that [facility] is active she is able to pick up man the med tomorrow. Also Spoke to pharmacist about this and is feeling better about the SE. Prior therapies: -glimepiride causes hypoglycemia in the afternoon SMBG: SMBG daily (FBG) Misplaced prescribed Freestyle Sanjana CGM when moving Before Brkfast 15-Feb 171 16-Feb 169 17-b 150 18-b 163 19-b 161 20-b 168 21-Feb 179 22-b 188 23-Feb 149 24-Feb 25-Feb 26-Feb 27-b 28-Feb 1-Sep 163 2-Sep 182 3-Sep AM Average 168 Lowest 149 Highest 188 Daily Avg 168 eA1c [id number] Prior Averages: 08/26/21 AM Average 157 Lowest 134 Highest 182 Daily Avg 157 eA1c 8.420344 Acute Complications Have you ever had a [...] Other -blurry vision and neuropathy Lifestyle: - and moved out from significant other -has Pomeranian - Wants to lose weight to reduce the pain in her knee Activity Do you exercise regularly? Yes has PT twice weekly Type of exercise(s), frequency, length Has been riding a stationary bike for 8 minutes twice weeklyfor PT Walks her dog down a long parking lot where she lives 5-6x daily List any problems/restrictions with exercise. Hamstring injury ~24-hour diet recall: Has been reducing meal sizes but is still craving sugar in the evenings 2-3 meals/day ~1-2 snacks/day Breakfast: Egg cups with cheese and veggies with 2 slices of low-calorie toast Likes eggs but not enough to eat eggs every day. Lunch: [place] with ham/turkey, [place] cheese, crisostomo, mustard with Doritos Dinner: Spaghetti OR fish filets OR pork chops with vegs (peas, green beans, carrots) sometimes with rice Snacks: Cottage Cheese 3 chocolate chip cookies in the evening/night Sweets: Chocolate bars and baked goods Still Craves sweets in the evenings Has peanut m&ms at night when she craves sweets Beverages: Milk with supper Diet Pepsi, coffee with light cream, water at night EtOH None Admits difficult to eat salads right now because it is out of season Considering having homemade soups instead Pt reviewed all her options to increase vegs and decrease portions during visit Tobacco Only smokes outside; has not been [...] area transportation options [] Languages other than Qatari: Technical Support Representative services provided No [] Allowances for cultural diversity: meal plan will be tailored for cultural food shavon [] Hearing: Airport Operations Duty Manager provided No [] Vision impaired: print augmentation for visual impairment [x] No learning barriers identified Patient reports that after being sick with a virus, and a hospital admission involving levothyroxine, she has speech and cognitive problems. Objective: Reconciled Medication List: Current Outpatient Medications Medication Sig Dispense Refill ??? metoprolol succinate XL (Toprol XL) 25 mg Tablet Sustained Release 24 hr Take 1 tablet by mouthdaily. 90 tablet 1 ??? clopidogreL (Plavix) 75 mg Tablet Take 1 tablet by mouth daily. Restart post-operatively on 07/05 90 tablet 1 ??? loratadine (Claritin) 10 mg Tablet Take 1 tablet by mouth daily. 90 tablet 1 ??? semaglutide (Ozempic) 0.25 mg or 0.5 mg(2 mg/1.5 mL) Pen Injector Inject 0.25 mg subcutaneouslyonce a week for 30 days, THEN 0.5 mg once a week. Indications: type 2 diabetes mellitus 4.5 mL 3 ??? Alcohol Swabs Pads, Medicated Apply 1 each topically daily. 100 each 3 ??? metFORMIN (GLUCOPHAGE) 1,000 mg Tablet Take 1 tablet by mouth 2 times daily (with meals). 180 tablet 1 ??? blood sugar diagnostic strips (OneTouch Ultra Blue Test Strip) Strip 1 each by Other route 3 times daily. by Other route. 1 box = 100 test strips; 3 boxes = 300 test strips. 100 each 11 ??? OneTouch Delica Lancets 30 gauge Misc 1 each by Other route 3 times daily. Indications: diabetes mellitus 100 each 11 ??? OneTouch Ultra2 Meter Misc 1 each by Misc.(Non-Drug; Combo Route) route daily. Indications: diabetes mellitus 1 each 0 ??? nitroGLYcerin (Nitrostat) 0.4 mg Tablet, [...] 30 tablet 3 ??? FreeStyle Sanjana 2 [place] Misc 1 each by Other route daily. [...] by mouth daily. 14 each 0 ??? fluticasone propionate (FLONASE) 50 mcg/actuation [place], Suspension 1 spray by Each Nare route 2 times daily. 16 g 11 ??? traZODone (Desyrel) 100 mg Tablet Take [...] 09/07/2005 TDAP 04/09/2019 , 06/24/2011 Prescription Insurance: [facility] [id number] Assessment and Recommendations: 1. Diabetes Goals of Therapy: o Referral specified A1c goal: <7% o ADA guidelines recommend an A1c goal of <7% for most adult patients to decrease the risk of micro/macrovascular complications Assessment: Lab Results Component Value Date HA1C 8.2 (H) 07/16/2021 o Patient due for A1c? no, Last A1c above goal; due to repeat 10/14/21 o On appropriate DM regimen with basal coverage using metformin but without postprandial coverage o Appears nonadherent to recommended med therapy because the pt was unable to start Ozempic as directed when insurance coverage lapsed when she switched to Medicare. Pt reports coverage is now sortedout and shoul calin vazuqez to pick up man Ozempic to start tomorrow o Denies s/sx of hypoglycemia but does endorse sx of hyperglycemia as expected if BGs are increasing o SMBG has been elevated per pt report which aligns with her elevated A1C indicating a need for an additional antidiabetic agent. Would recommend an agent that provides PPG coverage since pt is missing this from her current antidiabetic regimen. Would benefit from addition of Ozempic which has low h ypoglycemia risk, could help lower A1C by 0.5-1.5%, provides ASCVD benefit, decreases PPG, improvessatiety, and causes weight loss. o Blood sugar goals may vary for the individual, but in general the [place] [employer] recommends a fasting blood sugar [...] up to date and documented Recommendations: ?? Continue metformin 1000 mg BID ?? Start Ozempic 0.25 mg once weekly now that med is covered by insurance Lifestyle Modification Goals: ?? Continue SMBG once daily (FBG) ?? Ongoing Goal: no longer decreasing cigarette use, but able to identify her own reason to continue to consider quitting. Will ask if she Is ready to make a quit date at follow up ?? Diet goals: reviewed CHO counting. Pt will be mindful of CHO portions in meals Follow up plan: ?? Follow up in 2 weeks to review start of Ozempic, SMBG, and adjust antidiabetic regimen as indicated ??? Recommend FLP to calculate ASCVD risk [...] were made at the appointment and that [facility] is providing recommendations (summary located at top of note) for provider review and follow up. Julia Low RPH 09/09/21 documented in this encounter Plan of Treatment Upcoming Encounters Date Type Department Care Team (Late st Contact Info) Description 03/20/2024 9:00 AM EDT TH Visit (TeleHealth) Sleep Center at [facility] [address] [place] [phone] Denisse Hardwick [facility] 03/20/2024 2:00 PM EDT Clinical Support Family Medicine [facility] [address] [place] [address] Julia Low RPH 05/01/2024 11:20 AM EDT Appointment Mammography/[place] [address] Rodney Padilla MD [address] [facility] [place], [place] [id number] 05/01/2024 1:45 PM EDT Office [place] [address] Juanpablo Hernandez MD [facility] [place] [address] 01/30/2025 1:30 PM EDT Appointment Hematology [place] [address] 01/30/2025 3:[address] [place] [address] Arturo Cordero MD [facility] DR [place] [address] 01/30/2025 4:15 PM EDT Office Visit Hematology [place] [address] Arturo Cordero MD [facility] [place] [address] documented as of this encounter Visit Diagnoses Diagnosis Type 2 diabetes mellitus without long-term current use of insulin documented in this encounter Care Teams Bushwalking Guide Relationship Specialty Start Date End Date Luis E Narayan MD [facility] [address] [place] [address] PCP - General Family Medicine 03/26/19 01/19/22 documented as of this encounter
--- OUTSIDE RECORDS SUMMARY | 2024-03-04 21:23 | XMS_ITS | Encounter Summary ---
Author Organization [facility] Address [facility] [place] [address] Care Team Providers Care Lpn Or Medical Assistant Name Role Phone Luis E Narayan MD Primary Care Provider [phone]- [phone] Reason for Visit * Reason Onset Date Comments Medication Refill 08/02/2021 Encounter Details Date Type Department Care Team (Late st Contact Info) Description 08/02/2021 Refill Family Medicine at [facility] [address] [place] [address] Luis E Narayan MD [facility] [address] [address] Type 2 diabetes mellitus without long-term current [...] TH Visit (TeleHealth) Sleep Center at [facility] [address] [place] [address] Denisse Hardwick, [facility] 03/20/2024 2:00 PM EDT Clinical Support Family Medicine at [facility] [address] [place] [phone] Julia Low RPH 05/01/2024 11:20 AM EDT Appointment Mammography/[place] [phone] Rodney Padilla MD [address] [place] [address] 05/01/2024 1:45 PM EDT Office Visit Ophthalmology at [place] [address] Juanpablo Hernandez MD [facility] [place] [address] 01/30/2025 1:30 PM EDT Appointment Hematology and Oncology at [place] [address] 01/30/2025 3:[address] Scan at [place] [address] Arturo Cordero MD [facility] DR HEMATOLOGY [place] [address] 01/30/2025 4:15 PM EDT Office Visit Hematology and Oncology at [place] [phone] Arturo Cordero MD [facility] DR HEMATOLOGY [place] [address] documented as of this encounter Visit Diagnoses Diagnosis Type 2 diabetes mellitus without long-term current use of insulin documented in this encounter Care Teams Lpn Or Medical Assistant Relationship Specialty Start Date End Date Luis E Narayan MD [facility] [address] [place] [address] PCP - General Family Medicine 03/26/19 01/19/22 documented as of this encounter
--- OUTSIDE RECORDS SUMMARY | 2024-03-04 21:23 | XMS_ITS | Encounter Summary ---
Author Organization [facility] Address [facility] [place] [address] Care Team Providers Care Kit Planner Name Role Phone Rodney Padilla MD Primary Care Provider [phone]- [phone] Reason for Visit * Reason Onset Date Comments Medication Refill 09/08/2021 Encounter Details Date Type Department Care Team (Late st Contact Info) Description 09/08/2021 Refill Family Medicine at [facility] [address] [place] [address] Luis E Narayan MD [facility] [address] [address] Social History Tobacco Use Types Packs/Day Years [...] [facility] [address] [place] [address] Denisse Hardwick [facility] 03/20/2024 2:00 PM EDT Clinical Support Family Medicine at [facility] [address] [place] [address] Julia Low [facility] 05/01/2024 11:20 AM EDT Appointment Mammography[place] [phone] Rodney Padilla MD [address] [place] [place] [address] 05/01/2024 1:45 PM EDT Office [place] [address] Juanpablo Hernandez MD [facility] [place] [address] 01/30/2025 1:30 PM EDT Appointment Hematology and Oncology at [place] [address] 01/30/2025 3:[address] Scan at [place] [phone] Arturo Cordero MD [facility] HEMATOLOGY [place] [address] 01/30/2025 4:15 PM EDT Office Visit Hematology [place] [address] Arturo Cordero MD [facility] DR HEMATOLOGY [place] [address] documented as of this encounter Visit Diagnoses Not on filedocumented in this encounter Care Teams Kit Planner Relationship Specialty Start Date End Date Rodney Padilla MD [address] [place] [address] PCP - General 07/18/22 documented as of this encounter
--- OUTSIDE RECORDS SUMMARY | 2024-03-04 21:23 | XMS_ITS | Encounter Summary ---
Author Organization [facility] Address One [facility] [place] [address] Care Team Providers Care Street Department Dispatcher Name Role Phone Luis E Narayan MD Primary Care Provider [phone] Reason for Visit * Reason Comments Diabetes Encounter Details Date Type Department Care Team (Late st Contact Info) Description 08/06/2021 11:00 AM EST TH Visit (TeleHealth) Family Medicine at [facility] [address] [place] [address] Julia Low, [facility] Type [...] Progress Notes * Julia Low RPH - 08/06/2021 11:00 AM EST Images from the original note were not included. Clinical Pharmacist Consultation; Julia Low RPH Visit Type: Telehealth Phone Diabetes Mellitus (DM) Medication Management Summary of Recommendations & Next Steps: The following are recommendations from DM visit on 08/06/21. Please see notes below for more details and complete visit summary. Signed DM or Metabolic Syndrome collaborative practice agreement (CPA)? yes Recommended changes: List all current antidiabetic med names, dose, frequency ?? Continue metformin 1000 mg BID ?? Start Ozempic 0.25 mg once weekly Lifestyle Modification Goals: ?? Start SMBG 1x daily (FBG) ?? Goals: Each week cut back one cigarette a day and set a Quit date ?? Diet Goals: add veg to lunch and find a natural substitute for cookies in the evening Follow up plan: ?? Followup in 2-4 weeks to review tolerance of Ozempic, SMBG, and adjust antidiabetic regimen as indicated Subjective: Patient ID: Alize Gramajo is a 60 y.o. 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 Continue metformin 1000 mg BID ?? Sent testing supplies to [employer] ?? Will recommend Ozempic 0.25 mg once weekly at followup Lifestyle Modification Goals: ?? Start SMBG 1x daily (FBG) ?? Goals: Each week cut back one cigarette a day and set a Quit date ?? Diet Goals: add veg to lunch and find a natural substitute for cookies in the evening Follow up plan: ?? Followup in 2-4 weeks to review alternative antidiabetic agents, SMBG, and adjust antidiabetic regimen as indicated Antidiabetic Regimen (Start of Appointment): - metformin 1000 mg BID Prior therapies: - glimepiride cause hypoglycemia in the afternoon SMBG: Prescribed [place] Sanjana CGM But still can not find. Misplaced it during her move. Will continue to look for it to bring to review its use Resumed SMBG (FBG) Average Bs Highest B (did not feel good the night before) Lowest B Acute Complications Have you ever had a low blood sugar reaction? If yes, how did you feel? No [ ] Denies [ ] Shaking [ ] Sweating [ ] Weakness/fatigue [ ] Dizziness [ ] Blurred vision [ ] Other Have you ever had high blood sugar? If yes, how did you feel? Yes [ ] Denies [ x ] Polydipsia [ x ] Polyuria [ ] Polyphagia [ x] Other blurry vision and neuropathy Estimations per ADA: A1c (%) eBG (mg/dl) 5 97 5.5 111 6 126 6.5 140 7 154 7.5 169 8 183 8.5 197 9 212 9.5 226 10 240 Lifestyle: - Recently moved out andseparated from significant other - has a pomeraranian - Only smokes outside; has not been ready to quit emotionally Admits she smokes continuously in thecar Willing to try to cut back Thinking about trying a lozenge to cut back Activity Do you exercise regularly? Yes has PT twice weekly Type of exercise(s), frequency, length Has been riding a stationary bike for 8 minutes twice weeklyat PT Walks her dog down a long parking lot where she lives 5-6x daily List any problems/restrictions with exercise. Hamstring injury She was recommended to get her hamstrings checked out ~24-hour diet recal: 2-3 meals/day ~1-2 snacks/day Breakfast: Egg cups with cheese and veggies with 2 slices of low-calorie toast Likes eggs but does not want to eat every day Lunch: [place] with ham/turkey haitian cheese crisostomo and mustard with Doritos Dinner: Spaghetti OR fish fillets OR pork chops with vegs (peas, green beans, carrots) sometimes with rice Snacks: Cottage cheese Later in the day has 3 chocolate chip cookies Sweets: Chocolate bars or baked goods Beverages: Milk with supper and diet pepsi and coffee with light cream and water at night is very thiursty after haivng her cookies EtOH None With moving out form her significant other she is trying to learn to cook smaller portions Learning Barriers Addressed: [] Low literacy: low literacy education materials will be used [] Transportation: handout given and reviewed re: area transportation options [] Languages other than Luxembourger: Tea Bag Machine Tender services provided No [] Allowances for cultural diversity: meal plan will be tailored for cultural food shavon [] Hearing: Calibrator Barometers provided No [] Vision impaired: print augmentation for visual impairment [x] No learning barriers identified reports in the past a hospital stay for a viurus and has some cognitive changes which is why she is now on disability Objective: Reconciled Medication List: Current Outpatient Medications Medication Sig Dispense Refill ??? metFORMIN (GLUCOPHAGE) 1,000 mg Tablet Take [...] by mouth daily. 90 tablet 1 ??? simethicone (Gas Relief 80, simethicone,) 80 mg Tablet, Chewable Take 1 tablet by mouth every 6hours as needed for Flatulence. (Patient not taking: Reported on 06/24/2021) 30 tablet 3 ??? FreeStyle Sanjana 2 [place] Misc 1 each by Other route daily. Indications: diabetes mellitus (Patient not taking: Reported on 06/24/2021) 1 each 0 ??? FreeStyle Sanjana 2 Sensor Kit 1 each by Other route daily. Indications: diabetes mellitus (Patient not taking: Reported on 06/24/2021) 6 kit 3 ??? albuteroL (Proventil HFA) 90 mcg/actuation HFA Aerosol Inhaler Inhale 2 puffs into the lungs every 4 hours as needed for wheeze. Use with spacer 1 Inhaler 11 ??? polyethylene glycoL (Miralax) 17 gram Powder in Packet Take 17 g by mouth daily. (Patient not taking: Reported on 06/24/2021) 14 each 0 ??? fluticasone propionate (FLONASE) 50 mcg/actuation [place], Suspension 1 spray by Each Nare route [...] Vitals: BP Readings from Last 3 Encounters: 07/16/21 155/81 06/24/21 144/90 06/14/21 (!) 181/92 BMI Readings from Last 3 Encounters: 07/16/21 42.70 kg/m?? 06/24/21 43.02 kg/m?? 06/14/21 42.23 kg/m?? Pertinent Lab values: Lab Results Component [...] 09/07/2005 TDAP 04/09/2019 , 06/24/2011 Prescription Insurance: [facility] [id number] Assessment and Recommendations: 1. Diabetes Goals of Therapy: o Referral specified A1c goal: <7% o ADA guidelines recommend an A1c goal of <7% for most adult patients to decrease the risk of micro/macrovascular complications Assessment: Lab Results Component Value Date HA1C 8.2 (H) 07/16/2021 o Patient due for A1c? no, Last A1c above goal; due to repeat October 2021 o On appropriate DM regimen with basal coverage using metformin but without postprandial coverage o Appears adherent to meds without SE. Medications studied and to consider as add on or alternatives to metformin include GLP-1 agonists, and SGLT-2 as these drug classes may improve glycemic control. Additionally, GLP-1 (liraglutide, semaglutide (SUSTAIN), dulaglutide (REWIND)) or SGLT-2 (empagliflozin (EMPA-REG) and canagliflozin (CANVAS)) addition has shown beneficial effects on preventing CV outcomes. In addition SGLT-2 inhibitorshave shown benefit in preventing the progression of diabetic kidney disease. Would not add on MCNEIL as they can increase the risk of hypoglycemia and weight gain and are favorableonly if cost is a concern. Would consider addition of a GLP-1 if the pt does not have a history of pancreatitis or personal orfamily history of thyroid carcinoma. GLP-1's are an option to provide glucose dependent insulin secretion for postprandial coverage. GLP-1's include daily Victoza; BID Byetta; or once weekly Bydureon, Trulicity, or Ozempic. There is also an oral pill option for semaglutide which has less associatedweight loss and A1c lowering. All are incretin mimetics which enhance insulin secretion and synthesis only in the presence of elevated glucose, suppress glucagon secretion, slow gastric emptying, reduce food intake, and promote beta-cell proliferation. They have the ability to decrease A1c by ~1-1.5 % along with other positive benefits such as weight loss and CV risk reduction. In this pt with a BMI 42.69 and A1c of 8.2% a GLP 1 could be beneficial to trial before the pt would require insulin which has the negative consequence of weight gain. o Ozempic: $3 o Rybelsus: Nonpreferred o Denies s/sx of hypoglycemia but does endorse sx of hyperglycemia as expected if BGs are increasing o Review of SMBG reveals BGs do align with her current a1c and are elevated above goal. Would benefit from addition of once weekly GLP-1 to improve BGs o Blood sugar goals may vary for the individual, but in general the [place] Diabetes Association recommends a fasting blood sugar goal between 80-130mg/dL and 2 hours after meals a goal of <180 mg/dL o Interested in lifestyle modification to promote BG control. In particular may benefit from addingvegs into diet and smoking cessation. o Identified the following barriers to BG control current smoker o According to ADA guidelines pt is currently on low-intensity statin However she should have theirFLP checked periodically Would benefit from calculating ASCVD risk to determine if pt is on appropriate statin intensity o Currently appropriately on ACEI/Arb for renal protective benefits in pt with DM. Of note eGFR is currently 78 mL/min there is not an established renal value for when SGLT-2 inhibitor therapy shouldbe started for renal protection However evidence suggests SGLT-2 inhibitor therapy can prevent progression of diabetic kidney disease Clinical Practice Standards: o Statin:yes - simvastatin 10 mg o EBENEZER/ARB: yes - losartan 100 mg o ASA: no o Date of last eye exam: 07/27/21 o Date of last foot exam: UNK o Immunization status: up to date and documented. Recommendations: ?? Continue metformin 1000 mg BID ?? Start Ozempic 0.25 mg once weekly Lifestyle Modification Goals: ?? Start SMBG 1x daily (FBG) ?? Goals: Each week cut back one cigarette a day and set a Quit date ?? Diet Goals: add veg to lunch and find a natural substitute for cookies in the evening Follow up plan: ?? Followup in 2-4 weeks to review tolerance of Ozempic, SMBG, and adjust antidiabetic regimen as indicated ?? Recommend FLP to calculate ASCVD risk and review response to low-intensity statin ? ? Continue to work on diet and limit carbs to 45-60g per meal and <15g per snack. ??? Increase exercise to 30 mins, 5 days per week as tolerated. ??? Provided counseling on the following topics: [x] DM Pathophysiology & Management (lifestyle/meds) [x] SMBG [x] BG Goals (per ADA: FPG 80-130mg/dL, 2hrPPG <180 mg/dL) [] Hypoglycemia s/sx/management [x] Diet and portion control (MyPlate) [x] Activity (per ADA: 30 min x 5 days/wk) ??? Patient's personal goal(s): GOALS: [x] #1 [...] DM [] New dx # of yrs: unk Pre-A1c: 8.2 % [] unavailable or not done Total time spent: 60 minutes Referring Provider/Date: No ref. provider found Luis E Narayan MD Pt verbalized agreement and understanding of plan with no further questions at this time Pt understands IF NO CPA ON FILE no changes to current drug regimen were made at the appointment and that [facility] is providing recommendations (summary located at top of note) for provider review and follow up. Julia Low RPH 08/06/21 documented in this encounter Plan of Treatment Upcoming Encounters Date Type Department Care Team (Late st Contact Info) Description 03/20/2024 9:00 AM EDT TH Visit (TeleHealth) Sleep Center at [facility] [address] [place] [phone] Denisse Hardwick, [facility] 03/20/2024 2:00 PM EDT Clinical Support Family Medicine at [facility] [address] [place] [address] Julia Low, [facility] 05/01/2024 11:20 AM EDT Appointment Mammography/[place] [address] Rodney Padilla MD [address] [facility] [place] [address] 05/01/2024 1:45 PM EDT Office Visit Ophthalmology at [place] [phone] Juanpablo Hernandez MD [facility] [place] [address] 01/30/2025 1:30 PM EDT Appointment Hematology [place] [address] 01/30/2025 3:[address] Scan at [place] [phone] Arturo Cordero MD [facility] HEMATOLOGY [place] [address] 01/30/2025 4:15 PM EDT Office Visit Hematology [place] [address] Arturo Cordero MD [facility] HEMATOLOGY [place] [address] documented as of this encounter Visit Diagnoses Diagnosis Type 2 diabetes mellitus without long-term current use of insulin- Primary documented in this encounter Care Teams Street Department Dispatcher Relationship Specialty Start Date End Date Luis E Narayan MD [facility] [place] [address] PCP - General Family Medicine 03/26/19 01/19/22 documented as of this encounter
--- OUTSIDE RECORDS SUMMARY | 2024-03-04 21:23 | XMS_ITS | Encounter Summary ---
Author Organization [facility] [place] [address] Care Team Providers Care Pediatrician Name Role Phone Rodney Padilla MD Primary Care Provider [phone]- [phone] Reason for Visit * Reason Onset Date Comments Medication Refill 07/02/2021 Encounter Details Date Type Department Care Team (Late st Contact Info) Description 07/02/2021 Refill Family Medicine at [facility] [address] [place] [address] Bonny Emanuel MD [address] [place] [address] Social History Tobacco Use Types Packs/Day Years [...] EDT TH Visit (TeleHealth) Sleep Center at [facility] [address] [place] [address] Denisse Hardwick, [facility] 03/20/2024 2:00 PM EDT Clinical Support Family Medicine at [facility] [address] [place] [address] Julia Low [facility] 05/01/2024 11:20 AM EDT Appointment Mammography/[place] [phone] Rodney Padilla MD [address] [place] [address] 05/01/2024 1:45 PM EDT Office [place] [address] Juanpablo Hernandez MD [facility] [place] [address] 01/30/2025 1:30 PM EDT Appointment Hematology [place] [address] 01/30/2025 3:[address] [place] [address] Arturo Cordero MD [facility] [place] [address] 01/30/2025 4:15 PM EDT Office Visit Hematology [place] [address] Arturo Cordero MD [facility] [address] [place] [address] documented as of this encounter Visit Diagnoses Not on filedocumented in this encounter Care Teams Pediatrician Relationship Specialty Start Date End Date Rodney Padilla MD [address] [place] [place] [address] PCP - General 07/18/22 documented as of this encounter
--- OUTSIDE RECORDS SUMMARY | 2024-03-04 21:23 | XMS_ITS | Encounter Summary ---
Author Organization [facility] Address [facility] [place] [address] Care Team Providers Care Mill Washer Name Role Phone Luis E Narayan MD Primary Care Provider [phone]- [phone] Reason for Visit * Reason Comments Diabetes Encounter Details Date Type Department Care Team (Late st Contact Info) Description 08/26/2021 2:30 PM EST TH Visit (TeleHealth) Family Medicine at [facility] [address] [place] [address] Julia Low, [facility] Type 2 diabetes mellitus without long-term [...] Progress Notes * Julia Low RPH - 08/26/2021 2:30 PM EST Images from the original note were not included. Clinical Pharmacist Consultation; Julia Low RPH + Alba Anderson P4 Corner Block Cutter Visit Type: Telehealth Phone Diabetes Mellitus (DM) Medication Management Summary of Recommendations & Next Steps: The following are recommendations from DM visit on 09/06/21. 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 Start Ozempic 0.25 mg once weekly ??? Continue metformin 1000 mg BID Lifestyle Modification Goals: ??? Start SMBG daily (FBG) ??? Each week cut back by one cigarette a day and set Quit date ??? Diet Goals: add veg to lunch and find a natural substitute for cookies in the evening Antidiabetic Regimen (Start of Appointment): -metformin 1000 mg BID Prior therapies: -glimepiride causes hypoglycemia in the afternoon SMBG: SMBG daily (FBG) Misplaced prescribed Freestyle Sanjana CGM when moving AM 137 167 134 1-Aug 169 2-Aug 158 3-Aug 161 -Aug 168 5-Aug 153 6-Aug 139 7-Aug 140 8-Aug 170 159 162 182 12 146 13 152 14-Aug 141 15-Aug 156 16-Aug 171 17 169 AM Average 157 Lowest 134 Highest 182 Daily Avg 157 eA1c [id number] Acute Complications Have you ever had a [...] moved out from significant other -has Pomeranian Activity Do you exercise regularly? Yes has PT twice weekly Type of exercise(s), frequency, length Has been riding a stationary bike for 8 minutes twice weeklyfor PT Walks her dog down a long parking lot where she lives 5-6x daily List any problems/restrictions with exercise. Hamstring injury ~24-hour diet recall: 2-3 meals/day ~1-2 snacks/day Breakfast: Egg cups with cheese and veggies with 2 slices of low-calorie toast Likes eggs but not enough to eat eggs every day. Lunch: [place] with ham/turkey, [place]e cheese, crisostomo, mustard with Doritos Dinner: Spaghetti OR fish filets OR pork chops with vegs (peas, green beans, carrots) sometimes with rice Snacks: Cottage Cheese 3 chocolate chip cookies in the evening/night Sweets: Chocolate bars and baked goods Craves sweets in the evenings Tried to have a pear in place of sweets. Beverages: Milk with supper Diet Pepsi, coffee with light cream, water at night EtOH None Tobacco UNREVIEWED Only smokes outside; has not been ready to quit emotionally. Admits she smokes continuously in the car. Willing to try to cut back. Considered trying lozenge NRT to help cut back Health Beliefs and Attitudes Feelings about having [...] area transportation options [] Languages other than Somali: Pneumatic Jack Operator services provided No [] Allowances for cultural diversity: meal plan will be tailored for cultural food shavon [] Hearing: Vice President Media Relations provided No [] Vision impaired: print augmentation [...] 30 tablet 3 ??? FreeStyle Sanjana 2 [place] Misc 1 each by Other route daily. [...] 0 ??? fluticasone propionate (FLONASE) 50 mcg/actuation [place], Suspension 1 spray by Each Nare route [...] 09/07/2005 TDAP 04/09/2019 , 06/24/2011 Prescription Insurance: [facility] [id number] Assessment and Recommendations: 1. Diabetes Goals of [...] o Appears adherent to meds without SE. o Denies s/sx of hypoglycemia but does [...] for the individual, but in general the [place] Diabetes Association recommends a fasting blood sugar [...] status: up to date and documented Recommendations: ??? Continue metformin 1000 mg BID ??? Start Ozempic 0.25 mg once weekly Lifestyle Modification Goals: ??? SMBG once daily (FBG) ??? Each week, cut back one cigarette a day and set a Quit date ??? Diet Goals: Add a veg to lunch and find nutritional substitutes for sweets in the evenings Follow up plan: ??? Follow up on [...] were made at the appointment and that [facility] is providing recommendations (summary located at top of note) for provider review and follow up. Julia Low RPH 09/06/21 documented in this encounter Plan of Treatment Upcoming Encounters Date Type Department Care Team (Late st Contact Info) Description 03/20/2024 9:00 AM EDT TH Visit (TeleHealth) Sleep Center at [facility] [address] [place] [phone] Denisse Hardwick [facility] 03/20/2024 2:00 PM EDT Clinical Support Family Medicine at [facility] [address] [place] [phone] Julia Low RPH 05/01/2024 11:20 AM EDT Appointment Mammography/[place] [phone] Rodney Padilla MD [address] [address] 05/01/2024 1:45 PM EDT Office Visit Ophthalmology at [address] Juanpablo Hernandez MD [facility] [place] [address] 01/30/2025 1:30 PM EDT Appointment Hematology and Oncology at [place] [address] 01/30/2025 3:[address] Scan at [place] [phone] Arturo Cordero MD [facility] DR [place] [address] 01/30/2025 4:15 PM EDT Office Visit [place]ematology [place] [address] Arturo Cordero MD [facility] DR [place] [address] documented as of this encounter Visit Diagnoses Diagnosis Type 2 diabetes mellitus without long-term current use of insulin documented in this encounter Care Teams Mill Washer Relationship Specialty Start Date End Date Luis E Narayan MD [facility] [address] [place] [address] PCP - General Family Medicine 03/26/19 01/19/22 documented as of this encounter
--- OUTSIDE RECORDS SUMMARY | 2024-03-04 21:23 | XMS_ITS | Encounter Summary ---
Author Organization [facility] [place] [address] Care Team Providers Care Title One Reading Teacher Name Role Phone Luis E Narayan MD Primary Care Provider [phone] Encounter Details Date Type Department Care Team (Latest Contact Info) Description 06/24/2021 12:43 PM EST - 06/24/2021 11:59 PM EST Hospital Encounter Hematology [place] [address] Malignant melanoma of conjunctiva, left; History of renal cell cancer Discharge Disposition: Home Social History Tobacco [...] (E.C.) Take 81 mg by mouth daily. melatonin 5 mg Tablet Take 10 mg by mouth nightly. 04/19/2022 simvastatin (Zocor) 10 mg TabletIndications:Mixed hyperlipidemia Take 1 tablet by mouth daily. 90 tablet 3 06/22/2021 06/19/2022 amoxicillin (AMOXIL) 500 mg TabletIndications:Tooth abscess Take 1 tablet by mouth 3 times daily for 14 days. 42 tablet 06/14/2021 06/28/2021 metroNIDAZOLE (Flagyl) 500 mg TabletIndications:Tooth abscess Take 1 tablet by mouth 3 times daily for 14 days. 42 tablet 06/14/2021 06/28/2021 chlorhexidine (Peridex) 0.12 % Mouthwash Take 15 mLs by mouth 2 times daily. 473 mL 06/09/2021 07/27/2021 amLODIPine (Norvasc) 5 mg TabletIndications:Essent ial hypertension Take 1 tablet by mouth daily. 90 tablet 3 06/04/2021 12/10/2021 budesonide-formoteroL (Symbicort) 80-4.5 mcg/actuation HFA Aerosol InhalerIndications:Simpl e chronic bronchitis Inhale 2 puffs into the lungs 2 times daily. 3 each 3 05/26/2021 06/24/2022 omeprazole (PriLOSEC) 40 mg Capsule, Delayed Release(E.C.) Take 1 capsule by mouth daily. 90 capsule 3 05/07/2021 03/01/2022 losartan (Cozaar) 100 mg Tablet Take 1 tablet by mouth daily. 90 tablet 3 03/31/2021 02/11/2022 metoprolol succinate XL (Toprol XL) 25 mg Tablet Sustained Release 24 hr Take 1 tablet by mouth daily. 90 tablet 1 03/19/2021 08/02/2021 clopidogreL (Plavix) 75 mg Tablet Take 1 tablet by mouth daily. Restart post-operatively on 07/05 90 tablet 1 03/19/2021 08/02/2021 loratadine (Claritin) 10 mg Tablet Take 1 tablet by mouth daily. 90 tablet 1 03/19/2021 08/02/2021 simethicone (Gas Relief 80, simethicone,) 80 mg Tablet, ChewableIndications:Bloa ting Take 1 tablet by mouth every 6 hours as needed for Flatulence. 30 tablet 3 02/03/2021 06/16/2022 metFORMIN (GLUCOPHAGE) 1,000 mg TabletIndications:Type 2 diabetes mellitus with hyperglycemia, without long-term current use of insulin Take 1 tablet by mouth 2 times daily (with meals). 180 tablet 1 01/08/2021 08/02/2021 FreeStyle Sanjana 2 [place] MiscIndications:diabetes mellitus 1 each by Other route daily. Indications: diabetes mellitus 1 each 12/10/2020 10/26/2021 FreeStyle Sanjana 2 Sensor KitIndications:diabetes mellitus 1 each by Other route daily. Indications: diabetes mellitus 6 kit 3 12/10/2020 10/26/2021 albuteroL (Proventil HFA) 90 mcg/actuation HFA Aerosol InhalerIndications:Simpl e chronic bronchitis Inhale 2 puffs into the lungs every 4 hours as needed for wheeze. Use with spacer 1 Inhaler 11 10/09/2020 12/10/2021 polyethylene glycoL (Miralax) 17 gram Powder in PacketIndications:Juddi gutierrez, unspecified constipation type Take 17 g by mouth daily. 14 each 09/15/2020 09/19/2023 fluticasone propionate (FLONASE) 50 mcg/actuation [place], Suspension 1 spray by Each Nare route 2 times daily. 16 g 11 08/04/2020 09/07/2021 LORazepam (Ativan) 1 mg Tablet Take 1 mg by mouth every evening. 04/19/2022 busPIRone (Buspar) 10 mg Tablet Take 20 mg by mouth 2 times daily. 04/19/2022 lamoTRIgine (LaMICtal) 100 mg TabletIndications:Bipola r affective disorder in remission Take 1 tablet by mouth daily. 90 tablet 3 08/05/2019 06/20/2023 nitroGLYcerin (NITROSTAT) 0.4 mg Tablet, Sublingual Place 1 tablet under the tongue See Admin Instructions. 30 tablet 04/09/2019 07/05/2021 documented as of this encounter Plan of Treatment Upcoming Encounters Date Type Department Care Team (Late st Contact Info) Description 03/20/2024 9:00 AM EDT TH Visit (TeleHealth) Sleep Center at [facility] [address] [place] [id number] Denisse Hardwick, [facility] 03/20/2024 2:00 PM EDT Clinical Support Family Medicine at [facility] [address] [place] [phone] Julia Low, [facility] 05/01/2024 11:20 AM EDT Appointment Mammography/[place] [address] Rodney Padilla MD [address] [facility] [place], [place] [id number] 05/01/2024 1:45 PM EDT Office Visit [place] [address] Juanpablo Hernandez MD [facility] [place] [address] 01/30/2025 1:30 PM EDT Appointment Hematology [place] [address] 01/30/2025 3:[address] [place] [phone] Arturo Cordero MD [facility] DR HEMATOLOGY [place] [address] 01/30/2025 4:15 PM EDT Office Visit Hematology [place] [address] Arturo Cordero MD [facility] DR HEMATOLOGY [place] [address] documented as of this encounter Procedures Procedure Name Priority Date/Time Associated Diagnosis Comments HEMOGRAM STAT 06/24/2021 12:52 PM EST Malignant melanoma of conjunctiva, left History of renal cell cancer DIFFERENTIAL, AUTOMATED STAT 06/24/2021 12:52 PM EST Malignant melanoma of conjunctiva, left History of renal cell cancer HC CBC,PLT & AUTO DIFF STAT 12:52 PM EST Malignant melanoma of conjunctiva, left History of renal cell cancer HC VENIPUNCTURE STAT 06/24/2021 12:52 PM EST Malignant melanoma of conjunctiva, left History of renal cell cancer COMPREHENSIVE METABOLIC PANEL STAT 06/24/2021 12:52 PM EST Malignant melanoma of conjunctiva, left History of renal cell cancer documented in this encounter Results * Differential, Automated (06/24/2021 12:52 PM EST) Neutrophil % 62.0 % [facility] Neutrophil Absolute 5.24 1.70 - 6.10 x10(3)/[facility] Lymph % 27.4 % [facility] Lymphocytes Abs 2.3 0.9 - 3.2 x10(3)/[facility] Monocyte % 8.0 % [facility] Monocyte Abs 0.7 0.3 - 0.9 x10(3)/[facility] Eos % 1.4 % [facility] Eosinophils Abs 0.1 0.0 - 0.4 x10(3)/[facility] Basophil % 0.8 % [facility] Baso Absolute 0.1 0.0 - 0.1 x10(3)/[facility] Immature Gran % 0.40 % [facility] Comment: Immature granulocytes(IG's)percentage and absolute count will include metamyelocytes, myelocytes, and promyelocytes. Blood smears from CBCs yielding IG's will be scanned manually for concordance. If this scan disagrees with the automated IG or if promyelocytes are noted, a manual differential will be performed. Immature Gran Absolute 0.03 0.00 - 0.04 x10(3)/[facility] Blood 06/24/2021 12:5 2 PM EST 06/24/2021 1:02 PM EST Narrative Resulting Agency Comment Spec In Lab Leandra Lopes CUSTODY OFFICER HEMATOLOGY ORDERAB LES Performing Organization Address City/State/[facility] Co de Phone Number [facility] [place] [address] * (ABNORMAL) Hemogram (06/24/2021 12:52 PM EST) White Blood Cell 8.5 4.0 - 9.5 x10(3)/ L [facility] Red Blood Cell 4.74 4.00 - 5.21 x10(6)/[facility] Hemoglobin 13.9 11.7 - 15.5 g/dL [facility] Hematocrit 40.8 35.7 - 45.8 % [facility] Mean Cell Volume 86.1 82.6 - 94.4 fL [facility] Mean Cell Hemoglobin 29.3 27.1 - 32.0 pg [facility] Mean Cell Hemoglobin Concentration 34.1 31.7 - 35.0 g/dL [facility] Platelet 393(H) 145 - 357 x10(3)/mc L [facility] RDW Standard Deviation 43.5 37.0 - 46.0 fL [facility] RDW coefficient of variation 13.7 11.5 - 14.1 % [facility] Mean Platelet Volume 9.0 7.6 - 12.9 fL [facility] NRBC% auto 0.0 % [facility] NRBC Absolute 0.000 0.000 - 0.000 x10(3)/mc L [facility] Blood 06/24/2021 12:5 2 PM EST 06/24/2021 1:02 PM EST Narrative Resulting Agency Comment Spec In Lab Leandra Lopes APRN HEMATOLOGY ORDERAB LES [facility] [place] [address] * (ABNORMAL) Comprehensive metabolic panel (non-fasting) (06/24/2021 12:52 PM EST) Glucose 185 65 - 199 mg/dL [facility] Comment:Diabetes: >=200 mg/d L plus symptoms Blood Urea Nitrogen 12 8 - 18 mg/dL [facility] Creatinine 0.91 0.70 - 1.20 mg/dL [facility] Sodium 140 135 - 145 mmol/L [facility] Potassium 4.2 3.5 - 5.0 mmol/L [facility] Comment: Please note: ??Patients with WBC >100,000 may have falsely elevated Potassium levels. ??For accurate Potassium quantification in these patients send serum separator tube (gold top) for subsequent determinations. ??Contact the Clinical Chemistry Laboratory if there are any questions. Chloride 104 98 - 107 mmol/L [facility] Carbon Dioxide 25 22 - 31 mmol/L [facility] Anion Gap 11 5 - 15 mmol/L [facility] Calcium 9.6 8.5 - 10.5 mg/dL [facility] Protein, Total 6.9 6.1 - 8.0 g/dL [facility] Albumin 4.3 3.2 - 5.2 g/dL [facility] Aspartate Aminotransferase 27 0 - 30 unit/L [facility] Alanine Aminotransferase 34(H) 0 - 30 unit/L [facility] Alkaline Phosphatase 93 35 - 105 unit/L [facility] Bilirubin, Total 0.3 0.2 - 1.3 mg/dL [facility] Est Glomerular Filtration Rate 68 >=60 mL/min/1. 73 m?? [facility] Comment: This patient? s estimated glomerular filtration rate (eGFR) is between 68 mL/min/1.73 m2 (patients with less muscle mass) and 79 mL/min/1.73 m2 (patients with more muscle mass) as determined by the CKD-EPI equation. Assessment of eGFR is not appropriate when creatinine concentrations are rapidly changing. For clinical decisions where creatinine clearance will affect therapy, a 24-hour urine creatinine clearance may be advised. Assignment of CKD stage 1 - 5 for patients with an eGFR near the transition point between stages may be based on clinical assessment of muscle mass and symptoms in addition to eGFR. Blood 06/24/2021 12:5 2 PM EST 06/24/2021 1:02 PM EST Narrative Resulting Agency Comment Spec In Lab Leandra Lopes CUSTODY OFFICER CHEMISTRY ORDERABL ES [facility] [place] [address] * Lactate Dehydrogenase (06/24/2021 12:52 PM EST) Lactate Dehydrogenase 215 110 - 220 unit/L [facility] Blood 06/24/2021 12:5 2 PM EST 06/24/2021 1:02 PM EST Narrative Resulting Agency Comment Spec In Lab Leandra Lopes APRN CHEMISTRY ORDERABL ES [facility] [place] [address] documented in this encounter Visit Diagnoses Diagnosis Malignant melanoma of conjunctiva, left History of renal cell cancer documented in this encounter Care Teams Title One Reading Teacher Relationship Specialty Start Date End Date Luis E Narayan MD [facility] [address] [place] [address] PCP - General Family Medicine 03/26/19 01/19/22 documented as of this encounter
--- OUTSIDE RECORDS SUMMARY | 2024-03-04 21:23 | XMS_ITS | Encounter Summary ---
Author Organization [facility] [place] [address] Care Team Providers Care Radio Board Operator Name Role Phone Luis E Narayan MD Primary Care Provider Reason for Referral * Diagnostic Test (Routine) - Closed Specialty Diagnoses / Procedures Referred By Contac t Referred To Contact Radiology Diagnoses Malignant melanoma of conjunctiva, left Malignant melanoma, unspecified site Procedures CT Neck Soft Tissue w Contrast (Generic) Leandra Black APRN [facility] [address] [place] [address] [facility] [place] [address] Referral ID Status Reason Start Date Expiration Date V isits Requested Visits Authorized [id number] Closed Specialty Service Requested 12/23/2021 07/09/2022 1 1 * Diagnostic Test (Routine) - Closed Specialty Diagnoses / Procedures Referred By Contac t Referred To Contact Radiology Diagnoses Malignant melanoma of conjunctiva, left Malignant melanoma, unspecified site Procedures CT Chest Abdomen Pelvis w Contrast (Generic) Leandra Black APRN [facility] [address] [place] [address] [facility] [place] [address] Referral ID Status Reason Start Date Expiration Date V isits Requested Visits Authorized [id number] Closed Specialty Service Requested 12/23/2021 07/09/2022 1 1 Reason for Visit * Reason Comments Follow-up Encounter Details Date Type Department Care Team (Late st Contact Info) Description 06/24/2021 3:15 PM EST Office Visit Hematology [place] [address] Arturo Cordero MD [facility] [address] [place] [address] Dottie Jim MD [facility] [place] [address] Leandra Black APRN [facility] [place] [address] Malignant melanoma of conjunctiva, left; Malignant melanoma, unspecified site Social History Tobacco Use Types Packs/Day Years [...] Sign Reading Time Taken Comments Blood Pressure 144/90 06/24/2021 3:01 PM EST Pulse 74 06/24/2021 3:01 PM EST Temperature 36.3 ??C (97.3 ??F) 06/24/2021 3:01 PM ES T Respiratory Rate 18 06/24/2021 3:01 PM EST Oxygen Saturation 98% 06/24/2021 3:01 PM EST Inhaled Oxygen Concentration - - Weight 110.5 kg (243 lb 9.6 oz) 06/24/2021 3:01 PM EST Height 160.3 cm (5' 3.1) 06/24/2021 3:01 PM EST Body Mass Index 43.02 06/24/2021 3:01 PM EST documented in this encounter Progress Notes * Leandra Black, KATHIA - 06/24/2021 3:15 PM EST Images from the original note were not included. [facility] FOLLOW UP NOTE REFERING PHYSICIAN: Dr. Juanpablo Henrandez DIAGNOSIS: Left eye conjunctival melanoma PATH: L [...] management - fall 2018: saw a new workforce manager and was referred to Dr. 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 Medina - 03/31/2020: saw her workforce manager Dr. Hernandez and was noted to have [...] 06/24/2021 shows no evidence of metastatic disease HPI: Patience Manjarrez is a 60 y.o. female with past medical history of left-sided renal cell carcinoma s/ppartial nephrectomy, type II diabetes, coronary artery disease, hyperlipidemia, hypertension, depression/anxiety, and TITO, who is presented to the oncology clinic on 05/26/2020 to discuss evaluation/management for her conjunctival melanoma. INTERVAL HISTORY: Patience presents in surveillance of conjunctival melanoma with surveillance CT scan. Overall she is doing well. She is seeing her PCP regularly and is up to date on her colonoscopy. She will have a mammogram in July. She has been referred to GI to discuss her ongoing GI symptoms, which she feels are slowly resolving. She is scheduled to see Dr. Hernandez in July. She denies visual change, eye pain, eye pressure andtearing. No new masses or lesions of concern. She is having regular follow ups with her attacher. She continues to smoke, but hopes to stop soon after she gets her own apartment. She declined smoking cessation resources today. She is fully vaccinated again COVID-19. REVIEW OF SYSTEMS: Constitutional: No fever, no fatigue, occasional dizziness. No headache. Eyes: Negative ENT: No hearing change Cardiovascular: Negative Respiratory: Negative Gastrointestinal: Improved GI symptoms, will see GI in July Genitourinary: Negative Musculoskeletal: No new joint pain, [...] uses inhalerswith good effect ??? Atherosclerosis of [place] coronary artery of [place] heart with angina pectoris 10/09/2007 History of [...] 3.47) performed by Juanpablo Hernandez MD at [facility] ??? PRO EXCIS CORNEA LESN Left 05/14/2020 EXCISION OF LESION, CORNEA, EXCEPT PTERYGIUM (WRVU 7.5) performed by Juanpablo Hernandez MD at [facility] ??? PRO LAP, PARTIAL NEPHRECTOMY Left 06/28/2019 LAPAROSCOPY, PARTIAL NEPHRECTOMY, ROBOTIC ASSIST (WRVU 27.41) performed by Avila Medina MD at [facility] MAIN OR ??? PRO PLACE AMNIOTIC MEMBRANE OCULAR SURFACE;SINGLE LAYER SUTURED Left 05/14/2020 PLACEMENT OF AMNIOTIC MEMBRANE ON THE OCULAR SURFACE,SINGLE LAYER,SUTURED (WRVU 2.5) performed by Juanpablo Hernandez MD at [facility] MEDS: LORazepam, albuteroL, amLODIPine, amoxicillin, aspirin EC, budesonide- formoteroL, busPIRone, chlorhexidine, clopidogreL, flash glucose scanning reader, flash glucose sensor, fluticasone propionate, lamoTRIgine, loratadine, losartan, melatonin, metFORMIN, metoprolol succinate XL, metroNIDAZOLE, nitro GLYcerin, omeprazole, polyethylene glycoL, simethicone, simvastatin, and traZODone ALLERGY: Allergies Allergen Reactions ??? 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 in good mood and spirits BP 144/90 (Patient Position: Sitting) Pulse 74 Temp 36.3 ??C (97.3 ??F) (Temporal) Resp 18 Ht 160.3 cm (5' 3.1) Wt 110.5 kg (243 lb 9.6 oz) SpO2 98% BMI 43.02 kg/m?? Eyes: Not icteric, No obvious injection [...] LABS: CBC unremarkable CMP unremarkable except glucose 185 and ALT 34 LDH 215 IMAGING STUDIES: CT Chest Abdomen Pelvis on 06/24/2021 Stable [...] scans show no evidence of metastatic disease, 6 month from completing treatment with Mitomycin-C eyedrops. She [...] the oncologist until atleast the 5 year stephanie. - She will have a stand alone [...] least annually, or as recommended by your attacher. o Sun Exposure: Use broad spectrum, 30 SPF or higher, water resistant sunscreen with reapplication every 2 hours OR SPF clothing and limit your amount of direct sun exposure when possible. o Regular skin and lymph node self-examination should be performed. Please report any new lesions, lumps or bumps of concern to your attacher or oncology team. ? You should be [...] new symptoms or concerns. Leandra Black DNP, REGIONAL SAFETY MANAGER Return in 3 mos for stand alone US RTC in 6 mos with labs, clinic appointment and CT scan documented in this encounter Plan of Treatment Upcoming Encounters Date Type Department Care Team (Late st Contact Info) Description 03/20/2024 9:00 AM EDT TH Visit (TeleHealth) Sleep [facility] [address] [place] [phone] Denisse Hardwick, [employer] [facility] [facility] 03/20/2024 2:00 PM EDT Clinical Support Family Medicine [facility] [address] [place] [address] Julia Low, [facility] 05/01/2024 11:20 AM EDT Appointment Mammography/[place] [phone] Rodney Padilla MD [address] [facility] [place], [place] [id number] 05/01/2024 1:45 PM EDT Office [place] [address] Juanpablo Hernandez MD [facility] [place] [address] 01/30/2025 1:30 PM EDT Appointment Hematology [place] [address] 01/30/2025 3:[address] [place] [address] Arturo Cordero MD [facility] [place] [address] 01/30/2025 4:15 PM EDT Office Visit Hematology [place] [phone] Arturo Cordero MD [facility] [place] [address] documented as of this encounter Results * [...] who have questions please contact the health ambulatory care coordinator that requested your imaging first. ? Electronically signed by: Davin Corbett MD, [facility] ([phone]), at 12/24/2021 8:15 AM Narrative 12/24/2021 8:15 [...] patients who have questions please contactthe health ambulatory care coordinator that requested your imaging first. Electronically signed by: Davin Corbett MD, [facility]([phone]), at 12/24/2021 8:15 AM Leandra Black APRN IMG CT ORDERABLES * CT Chest [...] who have questions please contact the health ambulatory care coordinator that requested your imaging first. ? Electronically signed by: iMlo Kaye MD, [facility] ([phone]), at 12/23/2021 3:09 PM Narrative 12/23/2021 3:09 [...] patients who have questions please contactthe health ambulatory care coordinator that requested your imaging first. Electronically signed by: Milo Kaye MD, [facility]([phone]), at 12/23/2021 3:09 PM Leandra Black APRN IMG CT ORDERABLES * US Soft Tissue Head Or Neck (11/17/2021 11:45 AM EDT) Anatomical Region Laterality Modality Ultrasound 11/17/2021 11:4 2 AM EDT Impressions 11/17/2021 12:00 PM EDT Morphologically normal-appearing lymph nodes in the left neck. No suspicious sonographic findings. Electronically signed by: Nakia Goetz MD, [facility] ([phone]), at 11/17/2021 11:51 AM Thank you for letting us participate in the care of this patient. If you are a health care provider and have any questions regarding this report, please contact the number above. For patients who have questions, please contact the health ambulatory care coordinator that requested your imaging first. ? Nakia Goetz, Staff Physician Electronically Signed Final Report ?? 11/17/2021 11:59 am Narrative 11/17/2021 12:00 PM EDT Ultrasound Soft Tissue ?(Signed Final 11/17/2021 11:59 am) Neck Left PATIENT INFO: ID #: ? [id number] ?: ??[birth year] (61 yrs)(F) Name: ? PATIENCE MANJARREZ ? Visit Date: 11/17/2021 11:42 am PERFORMED BY: Performed By: ? Diana Lowe RDMS Attending: ?Nakia Goetz MD. Referred By: ?LEANDRA BLACK Location: ? [place] SERVICE(S) PROVIDED: USTN - Soft Tissue Neck or Head - [id number] ? [id number] INDICATIONS: History of left eye conjunctival melanoma s/p resection, [facility] imaging of left neck ran basin COMPARISON: Ultrasound ??SoftTissue Neck Left 03/19/21 --------- FINDINGS: --------- Title: ? Ultrasound Soft Tissue Neck Left Findings: ?Several lymph nodes visualized in the left neck, ?largest measuring 2.1 x 0.5 x 0.8 cm, with fatty ?hilum and normal cortical margins. Procedure Note Nakia Goetz MD - 11/17/2021 Ultrasound Soft Tissue (Signed Final 11/17/2021 11:59 am) Neck Left PATIENT INFO: ID #: [id number] : 58 (61 yrs)(F) Name: PATIENCE MANJARREZ Visit Date: 11/17/2021 11:42 am PERFORMED BY: Performed By: Diana Lowe RDMS Attending: oSfy COLVIN, Nakia Andrade Referred By: LEANDRA BLACK Location: [place] SERVICE(S) PROVIDED: USTN - Soft Tissue Neck or Head - [id number] INDICATIONS: History of left eye conjunctival melanoma s/p resection, [facility] imaging of left neck ran basin COMPARISON: Ultrasound SoftTissue Neck Left 03/19/21 --------- FINDINGS: --------- Title: Ultrasound Soft Tissue Neck Left Findings: Several lymph nodes visualized in the left neck, largest measuring 2.1 x 0.5 x 0.8 cm, with fatty hilum and normal cortical margins. IMPRESSION Morphologically normal-appearing lymph nodes in the left neck. No suspicious sonographic findings. Electronically signed by: Nakia Goetz MD, [facility] ([phone]), at 11/17/2021 11:51 AM Thank you for letting us participate in the care of this patient. If you are a health care provider and have any questions regarding this report, please contact the number above. For patients who have questions, please contact the health ambulatory care coordinator that requested your imaging first. Nakia Goetz, Staff Physician Electronically Signed Final Report 11/17/2021 11:59 am Leandra Black APRN IMG US GEN ORDERAB LES documented in this encounter Visit Diagnoses Diagnosis Malignant melanoma of conjunctiva, left Malignant melanoma, unspecified site Malignant melanoma of conjunctiva, left Malignant melanoma, unspecified site Malignant melanoma of conjunctiva, left Malignant melanoma, unspecified site documented in this encounter Care Teams Radio Board Operator Relationship Specialty Start Date End Date Luis E Narayan MD [facility] [address] [place] [address] PCP - General Family Medicine 03/26/19 01/19/22 documented as of this encounter
--- OUTSIDE RECORDS SUMMARY | 2024-03-04 21:23 | XMS_ITS | Encounter Summary ---
Author Organization [facility] Address [facility] [place] [address] Care Team Providers Care Business Applications Analyst Name Role Phone Luis E Narayan MD Primary Care Provider Reason for Visit * Reason Comments Melanoma Encounter Details Date Type Department Care Team (Late st Contact Info) Description 07/27/2021 8:45 AM EST Office [place] [address] Juanpablo Hernandez MD 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 Encounter Diagnosis Name Primary? 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 No personal history of melanoma, but lots of other cancer in her family, current smoker - possible positive margins, though free edge specimens negative Completed 2 rounds (minimal side effects) and 3.25 days (red eye) qid MMC 0.04% x 1 wk in early 2020 Resolved inflammation and quiet off FML since 10/2020, no signs of recurrence. Follow for now No PEK noted today but previously noted. Does not seem to be progressing to LSCF (note 1tiny subconj FB OS- not recurrent. See photos Keep plug in place and use chill PF AT Emphasized importance of regular dermatology follow ups - followed by Dr. Cordero Pre op photo Mild cataract: Follow NIDDM with A1C of 8.2: she declined dilation Current smoker but denies orthopnea, clear cell renal cell carcinoma Plan: - as above - Follow up 2 months or as needed - Findings and concerns discussed with Alize and she expressed understanding. -Upon Return CEE documented in this encounter Plan of Treatment Upcoming Encounters Date Type Department Care Team (Late st Contact Info) Description 03/20/2024 9:00 AM EDT TH Visit (TeleHealth) Sleep Center at [facility] [address] [place] [phone] Denisse Hardwick, INTERNATIONAL BANK MANAGER SLEEP CENTER 03/20/2024 2:00 PM EDT Clinical Support Family Medicine at [facility] [address] [place] [phone] Julia Low, [facility] 05/01/2024 11:20 AM EDT Appointment Mammography/[place] [address] Rodney Padilla MD [address] [place] [place] [address] 05/01/2024 1:45 PM EDT Office [place] [phone] Juanpablo Hernandez MD [facility] [place] [address] 01/30/2025 1:30 PM EDT Appointment Hematology [place] [phone] 01/30/2025 3:[address] [place] [phone] Arturo Cordero MD [facility] DR [place] [address] 01/30/2025 4:15 PM EDT Office Visit Hematology [place] [phone] Arturo Cordero MD [facility] DR [place] [address] documented as of this encounter Procedures Procedure Name Priority Date/Time Associated Diagnosis Comments EXTERNAL PHOTOGRAPHY - OU - BOTH EYES Routine 07/27/2021 11:54 AM EST Malignant melanoma of conjunctiva, left documented in this encounter Results * External Photography - OU - Both Eyes (07/27/2021 11:54 AM EST) Anatomical Region Laterality Modality Other Narrative 07/27/2021 11:54 AM EST Images documenting conjunctival scarring OS without signs of recurrence. Pin point fb under conj temp OS. 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 [address] [place] [address] PCP - General Family Medicine 03/26/19 01/19/22 documented as of this encounter
--- OUTSIDE RECORDS SUMMARY | 2024-03-04 21:23 | XMS_ITS | Encounter Summary ---
Author Organization [facility] [place] [address] Care Team Providers Care Driver Messenger Name Role Phone Luis E Narayan MD Primary Care Provider Encounter Details Date Type Department Care Team (Late st Contact Info) Description 08/19/2021 Telephone Family Medicine at [address] [place] [phone] Thomas Tyson, RN Social History Tobacco Use Types Packs/Day [...] encounter Miscellaneous Notes * Telephone Encounter - Thomas Tyson RN - 08/19/2021 4:48 PM EST Chief Complaint: Bilateral Leg Pain and Swelling Patient Alize Gramajo identified by full name and Onset: 07/29/21 Patient Report: Patient reports painful and swollen legs which started 3-4 weeks ago. Patient states the swelling goes from her ankles to her groin. Patient states the pain is aching is nothing has been helping for pain so far. Patient states her legs feel heavy and she has a difficult time standing after sitting down. Patient states her legs look Reddish veiny looking around left ankle . Patient pressed on her left ankle and stated a small crater like indent formed. Patient pressed on her right ankle and the skin almost returned to normal. Patient denies all urgent signs/symptoms at this time as seen below. OV scheduled with Robin COLVIN on08/20/21 @ 0840. Patient reported understanding and agrees to plan of care. Patient had no further questions or concerns regarding care for this RN. History: Heart Stent X 4, DM2, Severe left atrial dilation Plan of care []Emergency Patient denies chest pain, coughing up blood/pink frothy sputum, severe sob, sudden onset and cold or blue foot or toes, sudden onset and no pulse in foot of affected leg and numbness or tingling []Medical Care with 2-4 hours Patient denies severe swelling and pain in thigh/calf/ankle/toes, unable to walk, child is reluctant to use or move affected leg, fever, area over the ankle/calf/thigh is warm to touch, red streaks are extending from area, sudden swelling in one leg or ankle, signs of infection and immunocompromised. []Medical Care within 24 hours Pain persists or worsens with walking or standing/rest/raising the leg/flexing the foot, new prescription medication, swelling increases at night, and recent onset of symptoms, no improvement with home care, recent weight gain of greater than 10 lbs, history of blood clots/cancer/diabetes/cardiac disease/immunosuppression/liver disease/kidney disease, signs of infection(swelling, pain, warmth, drainage, red streaks), fever, child limping and pain in knee or hip, increased pain with movement or weight bearing and interferes with activity. Telehealth screen: [] Established patient [] Will be in [place] or [place] at time of visit [] Has access to Internet smart phone or computer with camera [] Would need phone visit HTI Screen: MUST be TH [] cough or fever AND Travelled internationally in past month to [facility] or [place] [] COVID-19 symptoms and unvaccinated Plan: [] Will review with PCP/COS and call patient back (COVID symptoms, non-urgent, and vaccinated) [x] Appointment scheduled date: 08/20/21 @ 0840 with Robin COLVIN Patient reports any of the following NEW symptoms instruct to wear a mask [] Cough (non-productive) [] Fever/chills [] Advised to seek urgent care [] Advised to seek emergent care [] Call 911. Patient is advised to seek care based upon of the development of plan of care related signs and symptoms Does the Patient agree and understand the instructions provided: Yes Note routed to: Robin COLVIN For review. documented in this encounter Plan of Treatment Upcoming Encounters Date Type Department Care Team (Late st Contact Info) Description 03/20/2024 9:00 AM EDT TH Visit (TeleHealth) Sleep Center at [facility] [address] [place] [phone] Denisse Hardwick, [facility] 03/20/2024 2:00 PM EDT Clinical Support Family Medicine at [facility] [address] [place] [phone] Julia Low, [facility] 05/01/2024 11:20 AM EDT Appointment Mammography/DXA at [place] [phone] Rodney Padilla MD [address] [place] [address] 05/01/2024 1:45 PM EDT Office Visit Ophthalmology at [place] [phone] Juanpablo Hernandez MD [facility] [place] [address] 01/30/2025 1:30 PM EDT Appointment Hematology and Oncology at [place] [phone] 01/30/2025 3:[address] Scan at [place] [phone] Arturo Cordero MD [facility] [place] [address] 01/30/2025 4:15 PM EDT Office Visit Hematology and Oncology at [place] [phone] Arturo Cordero MD [facility] [place] [address] documented as of this encounter Visit Diagnoses Not on filedocumented in this encounter Care Teams Driver Messenger Relationship Specialty Start Date End Date Luis E Narayan MD [facility] [address] [place] [address] PCP - General Family Medicine 03/26/19 01/19/22 documented as of this encounter
--- OUTSIDE RECORDS SUMMARY | 2024-03-04 21:23 | XMS_ITS | Encounter Summary ---
Author Organization Formerly [facility] Address [facility] [place] [address] Care Team Providers Care Lpn Rn Name Role Phone Luis E Narayan MD Primary Care Provider [phone]- [phone] Reason for Visit * Reason Onset Date Comments Medication Refill 08/02/2021 Encounter Details Date Type Department Care Team (Late st Contact Info) Description 08/02/2021 Refill Family Medicine at [facility] [address] [place] [address] Luis E Narayan MD [facility] [address] [place] [address] Social History Tobacco Use Types Packs/Day Years [...] at [facility] [address] [place] [address] Denisse Hardwick [facility] [employer] [facility] 03/20/2024 2:00 PM EDT Clinical Support Family Medicine at [facility] [address] [place] [address] Julia Low [facility] 05/01/2024 11:20 AM EDT Appointment Mammography/[place] [phone] Rodney Padilla MD [address] [place] [place] [address] 05/01/2024 1:45 PM EDT Office [place] [address] Juanpablo Hernandez MD [facility] [place] [address] 01/30/2025 1:30 PM EDT Appointment Hematology and Oncology at [place] [address] 01/30/2025 3:[address] Scan at [address] Arturo Cordero MD [facility] [place] [address] 01/30/2025 4:15 PM EDT Office Visit Hematology and Oncology at [place] [address] Arturo Cordero MD [facility] [place] [address] documented as of this encounter Visit Diagnoses Not on filedocumented in this encounter Care Teams Lpn Rn Relationship Specialty Start Date End Date Luis E Narayan MD [facility] [address] [place] [address] PCP - General Family Medicine 03/26/19 01/19/22 documented as of this encounter
--- OUTSIDE RECORDS SUMMARY | 2024-03-04 21:23 | XMS_ITS | Encounter Summary ---
Author Organization [facility] [place] [address] Care Team Providers Care Slicing Machine Operator/Tender Name Role Phone Luis E Narayan MD Primary Care Provider [phone] Encounter Details Date Type Department Care Team (Latest Contact Info) Description 07/27/2021 7:42 AM EST - 07/27/2021 11:59 PM EST Hospital Encounter Mammography/[place] [address] Luis E Narayan MD [facility] [address]ALK[address] [address] Visit for screening mammogram Discharge Disposition: Home Social History Tobacco Use [...] (E.C.) Take 81 mg by mouth daily. blood sugar diagnostic strips (OneTouch Ultra Blue Test Strip) StripIndications:Type 2 diabetes mellitus with hyperglycemia, without long-term current use of insulin 1 each by Other route 3 times daily. by Other route. 1 box = 100 test strips; 3 boxes = 300 test strips. 100 each 08/02/2021 10/11/2021 OneTouch Delica Lancets 30 gauge MiscIndications:diabetes mellitus 1 each by Other route 3 times daily. Indications: diabetes mellitus 100 each 08/02/2021 10/11/2021 OneTouch Ultra2 Meter MiscIndications:diabetes mellitus 1 each by Misc.(Non-Drug; Combo Route) route daily. Indications: diabetes mellitus 1 each 08/02/2021 10/11/2021 nitroGLYcerin (Nitrostat) 0.4 mg Tablet, Sublingual Place 1 tablet under the tongue See Admin Instructions. 30 tablet 07/05/2021 09/25/2022 melatonin 5 mg Tablet Take 10 mg by mouth nightly. 04/19/2022 simvastatin (Zocor) 10 mg TabletIndications:Mixed hyperlipidemia Take 1 tablet by mouth daily. 90 tablet 3 06/22/2021 06/19/2022 amLODIPine (Norvasc) 5 mg TabletIndications:Essent ial hypertension [...] tablet 1 01/08/2021 08/02/2021 FreeStyle Sanjana 2 [place] MiscIndications:diabetes mellitus 1 each by Other route [...] 09/15/2020 09/19/2023 fluticasone propionate (FLONASE) 50 mcg/actuation [place], Suspension 1 spray by Each Nare route [...] EDT TH Visit (TeleHealth) Sleep Center at [facility] [address] [place] [address] Denisse Hardwick, [employer] [facility] 03/20/2024 2:00 PM EDT Clinical Support Family Medicine at [facility] [address] [place] [phone] Julia Low [facility] 05/01/2024 11:20 AM EDT Appointment Mammography/[place] [address] Rodney Padilla MD [address] [place] [address] 05/01/2024 1:45 PM EDT Office Visit [place] [address] Juanpablo Hernandez MD [facility] [place] [address] 01/30/2025 1:30 PM EDT Appointment Hematology [place] [address] 01/30/2025 3:[address] [place] [address] Arturo Cordero MD [facility] DR HEMATOLOGY [place] [address] 01/30/2025 4:15 PM EDT Office Visit Hematology [place] [address] Arturo Cordero MD [facility] DR HEMATOLOGY [place] [address] documented as of this encounter Procedures Procedure Name Priority Date/Time Associated Diagnosis Comments MAMMO SCREENING CAD AND FEROZ BILATERAL Routine 07/27/2021 8:02 AM EST Visit for screening mammogram documented in this encounter Results * Mammo Screening Cad and Feroz Bilateral (07/27/2021 8:02 AM EST) Anatomical Region Laterality Modality Breast Bilateral Mammography Narrative 07/27/2021 8:12 AM EST BILATERAL MAMMOGRAPHY REASON FOR EXAM: Screening TECHNIQUE: [...] NEGATIVE Electronically signed by: ZEENAT FLORES MD Luis E Narayan MD IMG MAMMO ORDERABLE S documented in this encounter Visit Diagnoses Diagnosis Visit for screening mammogram Other screening mammogram documented in this encounter Care Teams Slicing Machine Operator/Tender Relationship Specialty Start Date End Date Luis E Narayan MD [facility] [place] [address] PCP - General Family Medicine 03/26/19 01/19/22 documented as of this encounter
--- OUTSIDE RECORDS SUMMARY | 2024-03-04 21:23 | XMS_ITS | Encounter Summary ---
Author Organization [facility] [place] [address] Care Team Providers Care Team Coordinator Name Role Phone Luis E Narayan MD Primary Care Provider [phone] Reason for Visit * Reason Onset Date Comments Medication Refill 12/10/2021 Encounter Details Date Type Department Care Team (Late st Contact Info) Description 12/10/2021 Refill Family Medicine at [facility] [address] [place] [address] Bereket Latham [place] [address] Essential hypertension Social History Tobacco Use Types [...] EDT TH Visit (TeleHealth) Sleep Center at [facility] [address] [place] [address] Denisse Hardwick [facility] 03/20/2024 2:00 PM EDT Clinical Support Family Medicine at [facility] [address] [place] [address] Julia Low [facility] 05/01/2024 11:20 AM EDT Appointment Mammography/[place] [address] Rodney Padilla MD [address] [place] [address] 05/01/2024 1:45 PM EDT Office Visit Ophthalmology at [place] [phone] Juanpablo Hernandez MD [facility] [place] [address] 01/30/2025 1:30 PM EDT Appointment Hematology and Oncology at [place] [address] 01/30/2025 3:[address] Scan at [address] Arturo Cordero MD [facility] DR [place] [address] 01/30/2025 4:15 PM EDT Office Visit Hematology and Oncology at [place] [address] Arturo Cordero MD [facility] DR [place] [address] documented as of this encounter Visit Diagnoses Diagnosis Essential hypertension Unspecified essential hypertension documented in this encounter Care Teams Team Coordinator Relationship Specialty Start Date End Date Luis E Narayan MD [facility] [address] [place] [address] PCP - General Family Medicine 03/26/19 01/19/22 documented as of this encounter
--- OUTSIDE RECORDS SUMMARY | 2024-03-04 21:23 | XMS_ITS | Encounter Summary ---
Author Organization [facility] Address [facility] [place] [address] Care Team Providers Care Lead Care Manager Name Role Phone Rodney Padilla MD Primary Care Provider Encounter Details Date Type Department Care Team (Late st Contact Info) Description 09/10/2021 Refill Family Medicine at [facility] [address] [place] [address] Luis E Narayan MD [facility] [address] [place] [address] Social History Tobacco Use Types Packs/Day Years [...] [facility] [address] [place] [address] Denisse Hardwick, DESIGN ENGINEERING MANAGER [facility] 03/20/2024 2:00 PM EDT Clinical Support Family Medicine at [facility] [address] [place] [address] Julia Low, [facility] 05/01/2024 11:20 AM EDT Appointment Mammography/[place] [address] Rodney Padilla MD [address] [facility] [place], [place] [address] 05/01/2024 1:45 PM EDT Office [place] [address] Juanpablo Hernandez MD [facility] [place] [address] 01/30/2025 1:30 PM EDT Appointment Hematology and Oncology at [place] [phone] 01/30/2025 3:[address] [place] [address] Arturo Cordero MD [facility] [place] [address] 01/30/2025 4:15 PM EDT Office Visit Hematology [place] [address] Arturo Cordero MD [facility] [place] [address] documented as of this encounter Visit Diagnoses Not on filedocumented in this encounter Care Teams Lead Care Manager Relationship Specialty Start Date End Date Rodney Padilla MD [address] [place] [place] [address] PCP - General 07/18/22 documented as of this encounter
--- OUTSIDE RECORDS SUMMARY | 2024-03-04 21:23 | XMS_ITS | Encounter Summary ---
Author Organization [facility] Address [facility] [place] [address] Care Team Providers Care Store Gift Wrap Associate Name Role Phone Luis E Narayan MD Primary Care Provider [phone]- [phone] Reason for Visit * Reason Comments Diabetes Encounter Details Date Type Department Care Team (Late st Contact Info) Description 11/16/2021 10:00 AM EDT TH Visit (TeleHealth) Family Medicine at [facility] [address] [place] [address] Julia Low, [facility] Type 2 diabetes mellitus without long-term [...] Progress Notes * Julia Low RPH - 11/16/2021 10:00 AM EDT Images from the original note were not included. Clinical Pharmacist Consultation; Julia Low RPH Visit Type: Telehealth Phone Diabetes Mellitus (DM) Medication Management Summary of Recommendations & Next Steps: The following are recommendations from DM visit on 11/16/21. Please see notes below for more details and complete visit summary. Signed DM or Metabolic Syndrome collaborative practice agreement (CPA)? yes Recommended changes: List all current antidiabetic med names, dose, frequency ?? HOLD Rybelsus per pt until GI symptoms improve ?? Continue metformin 1000 mg BID Lifestyle Modification Goals: ?? Continue SMBG 1-2x daily Follow up plan: ?? Followup call in 4 weeks to review CGM coverage,SMBG/CGM data, and encourage lifestyle changes as pt is not interested in med changes at this time Subjective: Patient ID: Alize Gramajo is a 61 y.o. 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 Appt conducted over the phone however difficult to hear pt due to phone receptionist/telephone operator/limited service Allergies and Drug intolerance: Allergies Allergen Reactions [...] but willing to try injectable meds - NEVER started Rybelsus d/t fear of SE while pt is already experiencing stomach upset Medication changes made at last visit: ?? Repeated A1c returned slightly improved at 8.1% ?? START Rybelsus 3 mg once daily QAM on an empty stomach ?? Continue metformin 1000 mg BID Lifestyle Modification Goals: ?? Continue SMBG 1-2x daily\ ?? Sent new Rxs for Freestyle Sanjana CGM to review coverage Follow up plan: ?? Followup call in 2-4 weeks to review tolerance of Rybelsus, CGM coverage,SMBG/CGM data, and encourage lifestyle changes Antidiabetic Regimen (Start of Appointment): - metformin 1000 mg BID - Did not start Rybelsus or Ozempic d/t fear of SE/FARZAD and motivation to make lifestyle changes Prior therapies: -glimepiride causes hypoglycemia in the afternoon SMBG: SMBG daily (FBG) Misplaced prescribed Freestyle Sanjana CGM when moving and may be unable to find as may have left at prior so house Before [facility] Before Lunch After Supper 129 137 138 144 152 162 147 175 -November 119 146 -November 156 92 3-November 124 -November 164 -November 6-November 13-November 8-November 89 AM PHI Average 140 134 138 Lowest 89 92 138 Highest 175 152 138 Daily Avg 138 eA1c [id number] Prior Averages: 08/26/21 09/09/21 09/24/21 Daily Avg 157 168 131 eA1c 8.313220 8.46 7.20 Acute Complications Have you ever [...] vision and neuropathy Lifestyle: - Feeling unwell with significant GI upset in particular bloating that worsens as the day progresses. Getting evaluated with imaging and by specialist - Reports going ot ED last week but can not see form chart review - and moved out from significant other -has Pomjoseniaparker - Wants to lose weight to reduce the pain in her knee - Working on her diet also for her fatty liver disease along with DM Activity Do you exercise regularly? Yes walking everyday Reports increasing activity Type of exercise(s), frequency, length resumed walking [...] less sugar but did not like it Has decreased intake with stomach upset symptoms 2-3 meals/day ~1-2 snacks/day Breakfast: Egg cups with cheese and veggies with 2 slices of low-calorie toast Likes eggs but not enough to eat eggs every day. Lunch: [place]armora with ham/turkey, Danish cheese, crisostomo, mustard with Doritos Dinner: Spaghetti [...] area transportation options [] Languages other than [place]ian: Merchandise Deliverer services provided No [] Allowances for cultural diversity: meal plan will be tailored for cultural food shavon [] Hearing: Carcass Trimmer provided No [] Vision impaired: print augmentation for visual impairment [x] No learning barriers identified Patient reports that after being sick with a virus, and a hospital admission involving levothyroxine, she has speech and cognitive problems. Objective: Reconciled Medication List: Current Outpatient Medications Medication Sig Dispense Refill ??? semaglutide (Rybelsus) 3 mg Tablet Take 1 tablet by mouth daily. Take on empty stomach, don't lie down, eat, drink or take other meds for 30 mins after taking this medication Indications: type 2 diabetes mellitus 30 tablet 11 ??? FreeStyle Sanjana 2 [place] Misc 1 each by Other route daily. [...] 5 ??? fluticasone propionate (Flonase) 50 mcg/actuation [place], Suspension 1 spray by Each Nare route [...] needed for Flatulence. 30 tablet 3 ??? albuteroL (Proventil HFA) 90 [...] A1Cs Lab Results Component Value Date HA1C 8.1 (A) 10/26/2021 HA1C 8.2 (H) 07/16/2021 HA1C 7.8 (H) 05/31/2021 Lab Results Component Value Date MICROALBUR <3.0 06/21/2019 Current Immunizations Name Date INFLUENZA 05/31/2021 , 05/06/2020 , 04/09/2019 , 05/08/2015 , 05/10/2007 Pneumo (PCV-13) 04/09/2019 Pneumo (PPSV-23) 05/10/2007 TD 06/24/2011 , 10/07/2005 , 09/07/2005 TDAP 04/09/2019 , 06/24/2011 Prescription Insurance: [facility] [id number] Assessment and Recommendations: 1. Diabetes Goals of [...] did Not start Ozempic d/t fear of FARZAD/SE and did not start Rybelsus as she has been getting evaluated for significant stomach upset. Appears appropriate at this time to hold GLP1 therapy if pt is currently having stomach symptoms because GLP1 common SE include GI distress o Denies s/sx of hypoglycemia o Review of SMBG aligns with recent A1c result But also appears to be trending down since pt reports decreasing her portions while she has had GI upset. For this reason appropriate to continue to encourage healthy lifestyle changes and evaluation for cause of current stomach symptoms. o Blood sugar goals may vary for the individual, but in general the [place] [employer] recommends a fasting blood sugar [...] up to date and documented Recommendations: ?? HOLD Rybelsus per pt until GI symptoms improve ?? Continue metformin 1000 mg BID Lifestyle Modification Goals: ?? Continue SMBG 1-2x daily Follow up plan: ?? Followup call in 4 weeks to review CGM coverage,SMBG/CGM data, and encourage lifestyle changes as pt is not interested in med changes at this time ??? Recommend FLP to calculate ASCVD risk [...] were made at the appointment and that [facility] is providing recommendations (summary located at top of note) for provider review and follow up. Julia Low, [facility] 11/16/21 documented in this encounter Plan of Treatment Upcoming Encounters Date Type Department Care Team (Late st Contact Info) Description 03/20/2024 9:00 AM EDT TH Visit (TeleHealth) Sleep Center at [facility] [address] [place] [address] Denisse Hardwick, [facility] 03/20/2024 2:00 PM EDT Clinical Support Family Medicine at [facility] [address] [place] [address] Julia Low [facility] 05/01/2024 11:20 AM EDT Appointment Mammography/[place] [address] Rodney Padilla MD [address] [place] [place] [address] 05/01/2024 1:45 PM EDT Office [place] [address] Juanpablo Hernandez MD [facility] [place] [address] 01/30/2025 1:30 PM EDT Appointment Hematology [place] [address] 01/30/2025 3:[address] [place] [address] Arturo Cordero MD [facility] HEMATOLOGY AND ONCOLOGY [place], [place] [address] 01/30/2025 4:15 PM EDT Office Visit Hematology [place] [address] Arturo Cordero MD [facility] [place] [address] documented as of this encounter Visit Diagnoses Diagnosis Type 2 diabetes mellitus without long-term current use of insulin documented in this encounter Care Teams Store Gift Wrap Associate Relationship Specialty Start Date End Date Luis E Narayan MD [facility] [address] [place] [address] PCP - General Family Medicine 03/26/19 01/19/22 documented as of this encounter
--- OUTSIDE RECORDS SUMMARY | 2024-03-04 21:23 | XMS_ITS | Encounter Summary ---
Author Organization [facility] Address [facility] [place] [address] Care Team Providers Care Email Operations Manager Name Role Phone Rodney Padilla MD Primary Care Provider [phone]- [phone] Reason for Visit * Reason Onset Date Comments Medication Refill 10/02/2021 Encounter Details Date Type Department Care Team (Late st Contact Info) Description 10/02/2021 Refill Family Medicine at [facility] [address] [place] [address] Luis E Narayan MD [facility] [address] [place] [address] Social History Tobacco Use Types Packs/Day Years [...] Visit (TeleHealth) Sleep Center at [facility] [address] [place] [address] Denisse Hardwick [facility] 03/20/2024 2:00 PM EDT Clinical Support Family Medicine at [facility] [address] [place] [address] Julia Low [facility] 05/01/2024 11:20 AM EDT Appointment Mammography/[place] [address] Rodney Padilla MD [address] [place] [address] 05/01/2024 1:45 PM EDT Office Visit [place] [address] Juanpablo Hernandez MD [facility] [place] [address] 01/30/2025 1:30 PM EDT Appointment Hematology and Oncology at [place] [address] 01/30/2025 3:[address] Scan at [place] [phone] Arturo Cordero MD [facility] [place] [address] 01/30/2025 4:15 PM EDT Office Visit Hematology [place] [address] Arturo Cordero MD [facility] [address] [place] [address] documented as of this encounter Visit Diagnoses Not on filedocumented in this encounter Care Teams Email Operations Manager Relationship Specialty Start Date End Date Rodney Padilla MD [address] [place] [address] PCP - General 07/18/22 documented as of this encounter
--- OUTSIDE RECORDS SUMMARY | 2024-03-04 21:23 | XMS_ITS | Encounter Summary ---
Author Organization [facility] Address [facility] [place] [address] Care Team Providers Care Insole Channeler Name Role Phone Luis E Narayan MD Primary Care Provider [phone] Reason for Referral * Consultation (Routine) - Closed Specialty Diagnoses / Procedures Referred By Gonzalez kumari Referred To Contact Dermatology Diagnoses Malignant melanoma of conjunctiva, left Shane Givens MD [facility] [address] [facility] Dermatology [address] [place] [address] Referral ID Status Reason Start Date Expiration Date V isits Requested Visits Authorized [id number] Closed Consult, Test & Treat 11/17/2021 11/17/2022 1 1 Encounter Details Date Type Department Care Team (Late st Contact Info) Description 11/17/2021 1:30 PM EDT [place] [address] Shane Givens MD [facility] [place] [address] Malignant melanoma of conjunctiva, left; Diabetic eye [...] as of this encounter Progress Notes * Shane Givens MD - 11/17/2021 1:30 PM EDT No diagnosis found. Alize Gramajo is a 61 y.o. with the following ophthalmic problems: 1. Melanoma of conjunctiva OS s/p excision with [...] hat and skin protection in the sun. 2. NIDDM with A1C of 8.1: -DFE today with no evidence of NPDR/PDR 3. Current smoker but denies orthopnea, Hx of clear cell renal cell carcinoma Plan: -Referral to dermatology placed today. - Follow up 4 months or as needed - Findings and concerns discussed with Alize and she expressed understanding. Shane Givens MD PGY-2 I saw the patient with the following level of supervision from the attending: Direct from Dr. Hernandez during this encounter. * Juanpablo Hernandez MD - 11/17/2021 1:30 PM EDT I have seen Alize Gramajo in clinic and reviewed the resident, Dr. Givens's, above history and I agree with the details as written. The assessment and plan were formulated in discussion with me and I agree with them as documented. No signs of melanoma recurrence or LSCF. Quiet eye with good vision. Follow Juanpablo Hernandez MD documented in this encounter Plan of Treatment Upcoming Encounters Date Type Department Care Team (Late st Contact Info) Description 03/20/2024 9:00 AM EDT TH Visit (TeleHealth) Sleep Center at [facility] [address] [place] [phone] Denisse Hardwick, [facility] 03/20/2024 2:00 PM EDT Clinical Support Family Medicine at [facility] [address] [place] [phone] Julia Low, [facility] 05/01/2024 11:20 AM EDT Appointment Mammography/DXA at [place] [address] Rodney Padilla MD [address] [place] [address] 05/01/2024 1:45 PM EDT Office Visit Ophthalmology at [place] [address] Juanpablo Hernandez MD [facility] [place] [address] 01/30/2025 1:30 PM EDT Appointment Hematology and Oncology at [place] [address] 01/30/2025 3:[address] Scan at [place] [address] Arturo Cordero MD [facility] DR HEMATOLOGY [place] [address] 01/30/2025 4:15 PM EDT Office Visit Hematology and Oncology at [place] [phone] Arturo Cordero MD [facility] DR HEMATOLOGY [place] [address] Scheduled Referrals Name Type Priority Associated Diagnoses Order Schedule Referral to Dermatology Outpatient Referral Routine Malignant melanoma of conjunctiva, left Ordered: 11/17/2021 documented as of this encounter Visit Diagnoses Diagnosis Malignant melanoma of conjunctiva, left Diabetic eye exam Examination of eyes and vision documented in this encounter Care Teams Insole Channeler Relationship Specialty Start Date End Date Luis E Narayan MD [facility] [address] [place] [address] PCP - General Family Medicine 03/26/19 01/19/22 documented as of this encounter
--- OUTSIDE RECORDS SUMMARY | 2024-03-04 21:23 | XMS_ITS | Encounter Summary ---
Author Organization [facility] Address [place] [address] Care Team Providers Care Engineer Process Name Role Phone Luis E Narayan MD Primary Care Provider [phone] Reason for Visit * Reason Comments Diabetes Encounter Details Date Type Department Care Team (Late st Contact Info) Description 09/24/2021 11:30 AM EDT TH Visit (TeleHealth) Family Medicine at [facility] [address] [place] [address] Julia Low, [facility] Type 2 diabetes mellitus without long-term [...] Progress Notes * Julia Low RPH - 09/24/2021 11:30 AM EDT Images from the original note were not included. Clinical Pharmacist Consultation; Julia Lwo RPH Visit Type: Telehealth Phone Diabetes Mellitus (DM) Medication Management Summary of Recommendations & Next Steps: The following are recommendations from DM visit on 09/24/21. Please see notes below for more details [...] follow up in October to repeat A1c Subjective: Patient ID: Alize Gramajo is a 60 y.o. 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 [...] afternoon SMBG: SMBG daily (FBG) Misplaced prescribed [place] CGM when moving Before Brkfast Before Supper After Supper Notes 3-Sep 4-Mar 5-Sep 6-Sep 123 157 7-Sep 165 148 8-Sep 109 99 9-Sep 114 127 99 10-Sep 131 ice cream 11-Sep 159 99 12-Sep 131 13-Sep 158 14-Sep 133 15-Sep 145 106 16-Sep 142 17-Sep 130 trail mix with raisins -Sep 151 AM PM Average 138 111 126 Lowest 109 99 99 Highest 165 127 157 Daily Avg 131 eA1c [id number] Prior Averages: 08/26/21 09/09/21 Daily Avg 157 168 eA1c [id number] 8.46 Acute Complications Have you ever had a [...] and moved out from significant other -has Blu - Wants to lose weight to reduce the pain in her knee - Working on her diet also for her fatty liver disease along with DM Activity Do you exercise regularly? Yes walking everyday Type of exercise(s), frequency, length Has been [...] enough to eat eggs every day. Lunch: Dulzura with ham/turkey, Argentine cheese, crisostomo, mustard with Doritos Dinner: Spaghetti [...] area transportation options [] Languages other than Slovak: Amusement Equipment Operator services provided No [] Allowances for cultural diversity: meal plan will be tailored for cultural food shavon [] Hearing: Ground Crew Linesman provided No [] Vision impaired: print augmentation for visual impairment [x] No learning barriers identified Patient reports that after being sick with a virus, and a hospital admission involving levothyroxine, she has speech and cognitive problems. Objective: Reconciled Medication List: Current Outpatient Medications Medication Sig Dispense Refill ??? fluticasone propionate (Flonase) 50 mcg/actuation [place], Suspension 1 spray by Each Nare route [...] 30 tablet 3 ??? FreeStyle [place] 2 [place] Misc 1 each by Other route daily. [...] 09/07/2005 TDAP 04/09/2019 , 06/24/2011 Prescription Insurance: [facility] [id number] Assessment and Recommendations: 1. Diabetes Goals of [...] recommended med therapy because the pt did start Ozempic d/t fear of FARZAD/SE o Denies s/sx of hypoglycemia o SMBG trended significantly down despite pt not starting ozempicbecause the pt has made lifestyle changes including CHO counting, avoiding sweets, and increasing daily activity. At this time, ifpt continues with her lifestyle changes she is not indicated for Ozempic however if repeat A1c remains elevated pt is aware that GLP1 is an option to support her efforts and achieve her DM management along with her weight loss goals o Blood sugar goals may vary for the individual, but in general the [place] [employer] Association recommends a fasting blood sugar [...] follow up in October to repeat A1c ??? Recommend FLP to calculate ASCVD risk [...] made at the appointment and that [facility] is providing recommendations (summary located at top of note) for provider review and follow up. Julia Low RPH 09/24/21 documented in this encounter Plan of Treatment Upcoming Encounters Date Type Department Care Team (Late st Contact Info) Description 03/20/2024 9:00 AM EDT TH Visit (TeleHealth) Sleep Center at [facility] [address] [place] [phone] Denisse Hardwick, [facility] 03/20/2024 2:00 PM EDT Clinical Support Family Medicine [facility] [address] [place] [address] Julia Low, [facility] 05/01/2024 11:20 AM EDT Appointment Mammography/[place] [address] Rodney Padilla MD [address] [place] [address] 05/01/2024 1:45 PM EDT Office Visit Ophthalmology at [place] [phone] Juanpablo Hernandez MD [facility] [place] [address] 01/30/2025 1:30 PM EDT Appointment Hematology [place] [address] 01/30/2025 3:[address] [place] [address] Arturo Cordero MD [facility] DR [place] [address] 01/30/2025 4:15 PM EDT Office Visit Hematology [place] [address] Arturo Cordero MD [facility] [place] [address] documented as of this encounter Visit Diagnoses Diagnosis Type 2 diabetes mellitus without long-term current use of insulin documented in this encounter Care Teams Engineer Process Relationship Specialty Start Date End Date Luis E Narayan MD [facility] [address] [place] [address] PCP - General Family Medicine 03/26/19 01/19/22 documented as of this encounter
--- OUTSIDE RECORDS SUMMARY | 2024-03-04 21:23 | XMS_ITS | Encounter Summary ---
Author Organization [facility] Address [facility] [place] [address] Care Team Providers Care Centrifugal Extractor Operator Name Role Phone Luis E Narayan MD Primary Care Provider [phone] Reason for Visit * Reason Onset Date Comments Prior Authorization 08/06/2021 Ozempic (0.2 5 or 0.5 MG/DOSE) 2MG/1.5ML pen-injectors Encounter Details Date Type Department Care Team (Late st Contact Info) Description 08/06/2021 Telephone Family Medicine at [facility] [address] [place] [phone] Aida Aguayo, [facility] Prior Authorization (Ozempic (0.25 or 0.5 MG/DOSE) 2MG/1.5ML pen-injectors) Social History Tobacco Use Types Packs/Day Years [...] encounter Miscellaneous Notes * Telephone Encounter - Arlene Palomo CMA - 08/09/2021 7:08 AM EST Medication Prior Authorization Approval Approved: Ozempic (0.25 or 0.5 MG/DOSE) Start Date: 08/09/2021 End Date: 07/09/2022 Case/Reference #: n/a Please note that Ozempic does NOT require prior authorization. * Telephone Encounter - Aida Aguayo MA - 08/06/2021 3:27 PM EST Resubmitted PA to primary part D insurance. Awaiting response from insurance. [employer] Anderson: [id number] * Telephone Encounter - Aida Aguayo MA - 08/06/2021 2:08 PM EST PA submitted. Awaiting response from insurance. * Telephone Encounter - Aida Aguayo MA - 08/06/2021 1:55 PM EST Medication Prior Authorization Request received via: [facility] Patient: Alize Gramajo Patient : 1960 Insurance Company: [employer] Medicaid Sent via: [facility] Anderson: [id number] Physician: Luis E Narayan MD Medication Requested: semaglutide (Ozempic) 0.25 mg or 0.5 mg(2 mg/1.5 mL) Pen Injector Frequency/Sig: Inject 0.25 mg subcutaneously once a week for 30 days, THEN 0.5 mg once a week. Disp: 4.5 mL Refills: 3 Currently taking: no If yes, how long: Diagnosis for this medication: Type 2 diabetes mellitus without long-term current use of insulin (E11.65) Prior medications trialed in this patient: Medication: metformin Approx Dates: 04/2019-current Outcome/Adverse Reactions: Inadequate response Prior therapies: - glimepiride cause hypoglycemia in the afternoon Additional Notes: documented in this encounter Plan of Treatment Upcoming Encounters Date Type Department Care Team (Late st Contact Info) Description 03/20/2024 9:00 AM EDT TH Visit (TeleHealth) Sleep Center at [facility] [address] [place] [phone] Denisse Hardwick, [facility] 03/20/2024 2:00 PM EDT Clinical Support Family Medicine at [facility] [address] [place] [phone] Julia Low [facility] 05/01/2024 11:20 AM EDT Appointment Mammography/DXA at [place] [phone] Rodney Padilla MD [address] [place] [address] 05/01/2024 1:45 PM EDT Office Visit Ophthalmology at [place] [address] Juanpablo Hernandez MD [facility] [place] [address] 01/30/2025 1:30 PM EDT Appointment Hematology and Oncology at [place] [address] 01/30/2025 3:[address] Scan at [place] [address] Arturo Cordero MD [facility] DR [place] [address] 01/30/2025 4:15 PM EDT Office Visit Hematology and Oncology at [place] [address] Arturo Cordero MD [facility] DR [place] [address] documented as of this encounter Visit Diagnoses Not on filedocumented in this encounter Care Teams Centrifugal Extractor Operator Relationship Specialty Start Date End Date Luis E Narayan MD [facility] [place] [place] [address] PCP - General Family Medicine 03/26/19 01/19/22 documented as of this encounter
--- OUTSIDE RECORDS SUMMARY | 2024-03-04 21:23 | XMS_ITS | Encounter Summary ---
[place] [address] Care Team Providers Care Real Estate Management Specialist Name Role Phone Luis E Narayan MD Primary Care Provider Reason for Visit * Consultation (Routine) - Closed Specialty Diagnoses / Procedures Referred By Gonzalez kumari Referred To Contact Gastroenterology Diagnoses Nonalcoholic hepatosteatosis fatty liver disease Tamera Khan, [facility] [address] [facility] [place] [address] [facility] [address] [place] [address] Referral ID Status Reason Start Date Expiration Date V isits Requested Visits Authorized [id number] Closed Assume Subset of Care 05/31/2021 05/31/2022 1 1 Encounter Details Date Type Department Care Team (Late st Contact Info) Description 07/16/2021 9:00 AM EST Office [place] [address] Sonia Michel, [facility] [address] NAFLD (nonalcoholic fatty liver disease); Type 2 diabetes mellitus without complication, without long-term current use of insulin Social [...] Sign Reading Time Taken Comments Blood Pressure 155/81 07/16/2021 8:47 AM EST Pulse 65 07/16/2021 8:47 AM EST Temperature - - Respiratory Rate - - Oxygen Saturation - - Inhaled Oxygen Concentration - - Weight 109.7 kg (241 lb 12.8 oz) 07/16/2021 8:47 AM EST Height 160.3 cm (5' 3.1) 07/16/2021 8:47 AM EST Body Mass Index 42.7 07/16/2021 8:47 AM EST documented in this encounter Progress Notes * Sonia Michel APRN - 07/16/2021 9:00 AM EST HEPATOLOGY NEW PATIENT CONSULTATION Alize Gramajo 1960 [employer] WORKER: SONIA MICHEL APRN PCP: Luis E Narayan MD Requesting Provider: REASON FOR CONSULTATION: Concern for fatty liver, epigastric pain, bloating HISTORY OF PRESENT ILLNESS Alize Gramajo is a 60 y.o. year old female with history of RCC (s/p nephrectomy 2019), diabetes, CAD, hypertension, hyperlipidemia, depression, TITO, conjuctival melanoma who presents for evaluation of concern of fatty liver based on ultrasound findings and upper abdominal pain and bloating. She started feeling bloated this fall which led to additional testing, including an ultrasound which showed fatty liver. She was unaware of having fatty liver prior to this and wants to make sure sheis fully evaluated. Feels very tender in her sternum when she presses. She notes some difference in her bowels, has more urgency and a different odor. She has periods when she feels bloated but is overall better since she increased her Omeprazole to 40mg which has helped her bloating and symptoms. She avoids spicy foods, but still drinking coffee and eating tomato sauce. Had an EGD and Colonoscopy at [facility] this fall, done by Dr. Renetta Coon and states she was told things were normal. ROS: Constitutional: no fatigue, fever, chills. She has gained about 20 lbs in the past 2 years. Eye: no visual changes ENT: no URI symptoms Cardio: no chest pain, palpitations Resp: no cough, no SOB GI: see HPI. No blood in stools. Did have some nausea when she had had bloating. : no dysuria Integumentary: no new rashes, no easy bruising Musculoskeletal: no new joint pains, swelling of ankles or legs Neuro: no new numbness, weakness in extremities PAST MEDICAL/SURGICAL HISTORY Past Medical History: Diagnosis Date ??? Allergy ??? Antiplatelet or antithrombotic long-term use aspirin, plavix ??? Arthritis ??? Asthma uses inhalerswith good effect ??? Atherosclerosis of [place] coronary artery of [place] heart with angina pectoris 10/09/2007 History of [...] I think it's from the pain medication MEDICATIONS Outpatient Medications Marked as Taking for the 07/16/21 encounter (Office Visit) with Sonia Michel APRN Medication Sig Dispense Refill ??? nitroGLYcerin (Nitrostat) 0.4 mg Tablet, Sublingual Place 1 tablet under the tongue See Admin Instructions. 30 tablet 0 ??? melatonin 5 mg Tablet Take by mouth. ??? simvastatin (Zocor) 10 mg Tablet Take 1 tablet by mouth daily. 90 tablet 3 ??? chlorhexidine (Peridex) 0.12 % Mouthwash Take 15 mLs by mouth 2 times daily. 473 mL 0 ??? amLODIPine (Norvasc) 5 mg Tablet Take [...] by mouth daily. 90 tablet 1 ??? metFORMIN (GLUCOPHAGE) 1,000 mg Tablet Take 1 tablet by mouth 2 times daily (with meals). 180 tablet 1 ??? albuteroL (Proventil HFA) 90 mcg/actuation HFA Aerosol Inhaler Inhale 2 puffs into the lungs every 4 hours as needed for wheeze. Use with spacer 1 Inhaler 11 ??? fluticasone propionate (FLONASE) 50 mcg/actuation [place], Suspension 1 spray by Each Nare route [...] (E.C.) Take 81 mg by mouth daily. ALLERGIES Allergies Allergen Reactions ??? Codeine Phosphate Nausea And Vomiting ??? Erythromycin Base Nausea Only ??? Azithromycin ??? Ibuprofen Stomach upset ??? Lisinopril cough ??? Nsaids (Non-Steroidal Anti-Inflammatory Drug) Nausea And Vomiting SOCIAL HISTORY Recently moved, got out of a relationship which did not make her happy. Currently on disability, had cognitive issues and problems with her speech. 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 Has 1 daughter and 3 grandkids. Alcohol: none Cigarettes: 1 ppd, trying to quit. FAMILY HISTORY NO known family hx of liver disease. Brother had pancreatic cancer. Mom had uterine cancer Aunts; Breast and kidney cancer. PHYSICAL EXAM Vitals: 07/16/21 0847 BP: 155/81 BP Location (NBP): Right arm Patient Position: Sitting BP Cuff Sizes: Large Adult (32-43 cm) Pulse: 65 Weight: 109.7 kg (241 lb 12.8 oz) Height: 160.3 cm (5' 3.1) Body mass index is 42.7 kg/m??. Gen: Well appearing, no apparent distress. Skin: no spider angiomata, no palmar erythema, no jaundice. HEENT: Sclerae anicteric, pupils equal, round, react to light. Pharynx unremarkable. Neck is supple, no adenopathy, no thyromegaly. Chest is clear. Heart: Regular rate and rhythm. Normal S1, S2, no murmurs. Abdomen: Normal bowel sounds; soft, non distended. No obvious hepatosplenomegaly. No evidence of ascites Extremities: No edema. Neuro: alert and oriented x3, no asterixis or tremor. Lab Results Component Value Date WBC 8.5 06/24/2021 HGB 13.9 06/24/2021 HCT 40.8 06/24/2021 MCV 86.1 06/24/2021 PLATELET 393 (H) 06/24/2021 No results for input(s): INR in the last 168 hours. Lab Results Component Value Date ALT 34 (H) 06/24/2021 AST 27 06/24/2021 ALKPHOS 93 06/24/2021 BILITOT 0.3 06/24/2021 Chemistry Component Value Date/Time NA 140 06/24/2021 1252 K 4.2 06/24/2021 1252 CL 104 06/24/2021 1252 CO2 25 06/24/2021 1252 BUN 12 06/24/2021 1252 CREATININE 0.91 06/24/2021 1252 Component Value Date/Time CALCIUM 9.6 06/24/2021 1252 ALKPHOS 93 06/24/2021 1252 AST 27 06/24/2021 1252 ALT 34 (H) 06/24/2021 1252 BILITOT 0.3 06/24/2021 1252 09/11/2020 14:45 12/17/2020 12:45 05/31/2021 17:57 06/24/2021 12:52 Alk Phos 115 (H) 97 104 93 AST 20 21 17 27 ALT 22 24 22 34 (H) 05/09/2019 10:19 Iron 46 TIBC 363 Iron Saturation 13 (L) Ferritin 55 06/21/2019: HCV Ab: negative Ultrasound 06/08/2021: IMPRESSION ?? 1. Normal gallbladder. Specifically, no cholelithiasis. No biliary ductal dilatation. 2. Stable mild hepatomegaly with known hepatic steatosis, small areas of focal fatty sparing noted adjacent to the gallbladder. No sonographically evident hepatic mass. 3. Normal right kidney. 4. Limited evaluation of the pancreas. Fibroscan Results: Median kPa: 6.8 kPa Mean IQR: 19 % (goal is <30 %) Number of valid measurements: 18 (at least 10 required) Number of invalid measurements: 8 Predicted fibrosis stage: F0-1 CAP (dB/m): 394 Estimated steatosis grade: 3/3 % hepatocytes affected: >66 % Liver Fibrosis Score (Fib 4) was 0.72 at 07/16/2021 9:47 AM ASSESSMENT/PLAN Alize Gramajo is a 60 y.o. female with history of diabetes, hypertension, TITO, CAD, RCC, and slightly elevated liver enzymes with hepatic steatosis seen on ultrasound. I suspect she has NAFLD, as she has multiple metabolic risk factors (Obesity, BMI 42, Diabetes, hypertension, HLD, TITO). She does not drink any significant amount of alcohol. Her testing for iron overload and Hepatitis C have beennegative. I will recheck her iron studies and test for Hepatitis B today. Her fibroscan today does not show any significant fibrosis and does show steatosis, which is fitting with her ultrasound findings. Her FIB-4 is low and shows low likelihood of advanced fibrosis. Fatty liver disease is one of the most common causes of liver disease in the [place]. It is regarded as the liver manifestation of metabolic syndrome, associated with cardiovascular disease andpredisposition to developing diabetes. The goals of treatment are treating or managing risk factors. We discussed the importance of lifestyle interventions and making healthy food choices as the backbone of treatment for this condition. We set realistic weight loss goals; goal is to focus on loosing 10-15% of total body weight over a year with a target (2-3 lbs/month) by incorporating regular exercise, lifestyle modifications, healthy food choices including portion control. In addition I would recommend focusing on glycemic control, avoid high fructose corn syrup and added sugars. Recommendations: - Continue to work on weight loss as above. - Agree with statin therapy and Meformin. - Consider addition of GLP-1 RA such as Liraglutide or Semaglutide if needed for glycemic control as these can help with reducing steatosis in the liver and with weight loss. - I would not recommend Vitamin E given her diabetes. - Can continue to monitor for progression of fibrosis with an annual FIB-4 score. This is a test for fibrosis which uses AST, ALT, Platelets and age (https://www.hepatitisc.uw.edu/page/clinical-calculators/fib-4) If this becomes elevated over 1.3 would recommend referral back to hepatology for a repeat fibroscan. - We discussed that given her family history of breast, uterine and pancreatic cancer she may be a good candidate for BRCA mutation testing. Recommend follow up with her PCP and may consider referralto genetic counseling. Sonia Michel APRN Section of Gastroenterology [place] [address] Copy: Luis E Narayan MD [facility] / [place]* documented in this encounter Plan of Treatment Upcoming Encounters Date Type Department Care Team (Late st Contact Info) Description 03/20/2024 9:00 AM EDT TH Visit (TeleHealth) Sleep Center at [facility] [address] [place] [phone] Denisse Hardwick, [facility] 03/20/2024 2:00 PM EDT Clinical Support Family Medicine at [facility] [address] [place] [id number] Julia Low, [facility] 05/01/2024 11:20 AM EDT Appointment Mammography/[place] [address] Rodney Padilla MD [address] [place] [address] 05/01/2024 1:45 PM EDT Office [place] [address] Juanpablo Hernandez MD [facility] [place] [address] 01/30/2025 1:30 PM EDT Appointment Hematology [place] [address] 01/30/2025 3:[address] [place] [address] Arturo Cordero MD [facility] [place] [address] 01/30/2025 4:15 PM EDT Office Visit Hematology [place] [address] Arturo Cordero MD [facility] [place] [address] documented as of this encounter Procedures Procedure Name Priority Date/Time Associated Diagnosis Comments HC IRON BINDING CAPACITY Routine 07/16/2021 10:07 AM EST NAFLD (nonalcoholic fatty liver disease) HC HEPATITIS B SURFACE AB Routine 07/16/2021 10:07 AM EST NAFLD (nonalcoholic fatty liver disease) HC HEPATITIS B SURFACE AG Routine 07/16/2021 10:07 AM EST NAFLD (nonalcoholic fatty liver disease) HC HEMOGLOBIN A1C Routine 07/16/2021 10: 07 AM EST NAFLD (nonalcoholic fatty liver disease) Type 2 diabetes mellitus without complication, without long-term current use of insulin HC FERRITIN, SERUM Routine 07/16/2021 10 :07 AM EST NAFLD (nonalcoholic fatty liver disease) COMPREHENSIVE METABOLIC PANEL Routine 07/16/2021 10:07 AM EST NAFLD (nonalcoholic fatty liver disease) documented in this encounter Results * (ABNORMAL) Hemoglobin A1c (07/16/2021 10:07 AM EST) Hemoglobin A1c 8.2(H) 4.3 - 5.6 % [facility] Comment: Reference Range: 4.3 [...] Mellitus, Diabetes Care 2013; 36: Suppl. 1, S67-70 Estimated Average Glucose 188 mg/dL [facility] Comment: eAG equivalents for HbA1c percentages: [...] into estimated average glucose values. ??Diabetes Care 2008:31(8):8782-9708. Blood 07/16/2021 10:0 7 AM EST 07/16/2021 10:13 AM EST Narrative Resulting Agency Comment Spec In Lab Sonia Michel [employer] ORDER[employer]L ES Performing Organization Address [facility] de Phone Number [facility] [place] [address] * Hepatitis B Surface Antibody (07/16/2021 10:07 AM EST) Hepatitis B Surface Antibody, Quantitative <3.5 IU/L [facility] Comment: HepB Surface Ab Quant: Unvaccinated: < 8.5 IU/L Vaccinated: > 11.5 IU/L Hepatitis B Surface Antibody Negative [facility] Comment: Patient is presumed to be not vaccinated or immune to HBV infection. Expected Results: Vaccinated: Positive Unvaccinated: Negative Blood 07/16/2021 10:0 7 AM EST 07/16/2021 10:13 AM EST Narrative Resulting Agency Comment Spec In Lab Sonia Michel [employer] ORDER[employer] ES Performing Organization Address [facility] de Phone Number [facility] [place] [address] * Hepatitis B Surface Antigen (07/16/2021 10:07 AM EST) Hepatitis B Surface Antigen Negative Negative [facility] Blood 07/16/2021 10:0 7 AM EST 07/16/2021 10:13 AM EST Narrative Resulting Agency Comment Spec In Lab Sonia Michel [employer] ORDER[employer] ES Performing Organization Address [facility] de Phone Number [facility] [place] [address] * (ABNORMAL) Ferritin (07/16/2021 10:07 AM EST) Ferritin 27(L) 30 - 400 ng/mL [facility] Comment: Pediatric reference ranges not verified at [facility], interpret with caution. Reference ranges for females greater than 50 years of age approach values for men, i.e., 30-400 ng/mL. Blood 07/16/2021 10:0 7 AM EST 07/16/2021 10:13 AM EST Narrative Resulting Agency Comment Spec In Lab Sonia Michel KATHIA CHEMISTRY ORDERABL ES Performing Organization Address [facility] Co de Phone Number [facility] [place] [address] * (ABNORMAL) Iron and TIBC (07/16/2021 10:07 AM EST) Iron 46 30 - 150 mcg/dL [facility] TIBC 368 250 - 450 mcg/dL [facility] Iron Saturation 12(L) 20 - 50 % [facility] Blood 07/16/2021 10:0 7 AM EST 07/16/2021 10:13 AM EST Narrative Resulting Agency Comment Spec In Lab Sonia Michel KATHIA CHEMISTRY ORDERABL ES Performing Organization Address [facility] Co de Phone Number [facility] [place] [address] * Comprehensive metabolic panel (non-fasting) (07/16/2021 10:07 AM EST) Glucose 169 65 - 199 mg/dL [facility] Comment:Diabetes: >=200 mg/d L plus symptoms Blood Urea Nitrogen 14 8 - 18 mg/dL [facility] Creatinine 0.81 0.70 - 1.20 mg/dL [facility] Sodium 140 135 - 145 mmol/L [facility] Potassium 4.6 3.5 - 5.0 mmol/L [facility] Comment: Please note: ??Patients with WBC >100,000 may have falsely elevated Potassium levels. ??For accurate Potassium quantification in these patients send serum separator tube (gold top) for subsequent determinations. ??Contact the Clinical Chemistry Laboratory if there are any questions. Chloride 102 98 - 107 mmol/L [facility] Carbon Dioxide 28 22 - 31 mmol/L [facility] Anion Gap 10 5 - 15 mmol/L [facility] Calcium 9.8 8.5 - 10.5 mg/dL [facility] Protein, Total 7.1 6.1 - 8.0 g/dL [facility] Albumin 4.4 3.2 - 5.2 g/dL [facility] Aspartate Aminotransferase 18 0 - 30 unit/L [facility] Alanine Aminotransferase 26 0 - 30 unit/L [facility] Alkaline Phosphatase 102 35 - 105 unit/L [facility] Bilirubin, Total 0.3 0.2 - 1.3 mg/dL [facility] Est Glomerular Filtration Rate 78 >=60 mL/min/1. 73 m?? [facility] Comment: This patient? s estimated glomerular filtration rate (eGFR) is between 78 mL/min/1.73 m2 (patients with less muscle mass) and 91 mL/min/1.73 m2 (patients with more muscle mass) [...] and symptoms in addition to eGFR. Blood 07/16/2021 10:0 7 AM EST 07/16/2021 10:13 AM EST Narrative Resulting Agency Comment Spec In Lab Sonia Michel APRN CHEMISTRY ORDERABL ES [facility] [place] [address] documented in this encounter Visit Diagnoses Diagnosis NAFLD (nonalcoholic fatty liver disease) Other chronic nonalcoholic liver disease Type 2 diabetes mellitus without complication, without long-term current use of insulin documented in this encounter Care Teams Real Estate Management Specialist Relationship Specialty Start Date End Date Luis E Narayan MD [facility] [address] [place] [address] PCP - General Family Medicine 03/26/19 01/19/22 documented as of this encounter
--- OUTSIDE RECORDS SUMMARY | 2024-03-04 21:23 | XMS_ITS | Encounter Summary ---
Author Organization [facility] Address [facility] [place] [address] Care Team Providers Care Hospice Educator Name Role Phone Luis E Narayan MD Primary Care Provider [phone] Reason for Visit * Reason Comments Diabetes * Consultation (Routine) - Closed Specialty Diagnoses / Procedures Referred By Gonzalez kumari Referred To Contact Family Medicine Diagnoses Type 2 diabetes mellitus with other specified complication, without long-term current use of insulin Tamera Khan, JUNIOR SYSTEMS ANALYST [facility] [address] [place] [address] Julia Low [facility] Referral ID Status Reason Start Date Expiration Date V isits Requested Visits Authorized [id number] Closed Assume Subset of Care 06/14/2021 06/14/2022 1 1 Encounter Details Date Type Department Care Team (Late st Contact Info) Description 07/27/2021 11:00 AM EST Clinical Support Family Medicine at [facility] [address] [place] [address] Julia Low [facility] Type 2 diabetes mellitus without long-term current [...] Progress Notes * Julia Low RPH - 07/27/2021 11:00 AM EST Images from the original note were not included. Clinical Pharmacist Consultation; Julia Low RPH Visit Type: Clinic Diabetes Mellitus (DM) Medication Management Summary of Recommendations & Next Steps: The following are recommendations from DM visit on 07/27/21. Please see notes below for more details and complete visit summary. Signed DM or Metabolic Syndrome collaborative practice agreement (CPA)? yes Recommended changes: List all current antidiabetic med names, dose, frequency ?? Continue metformin 1000 mg BID ?? Sent testing supplies to [employer] ?? Will recommend Ozempic 0.25 mg once [...] antithrombotic long-term use, Arthritis, Asthma, Atherosclerosis of [place] 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 [...] Pt was referred for DM appointment by Lius E Narayan MD for medication management and education. Patient brought medications to appointment? no Patient brought glucometer to appointment? no Allergies and Drug intolerance: Allergies Allergen Reactions [...] # of Missed doses/week None - Uses [employer] [facility] - rx insurance [facility] [id number] - Needs testing supplies - would prefer oral therapies to injections although admits she could learn to take an injectable med Medication changes made at last visit: - NA Antidiabetic Regimen (Start of Appointment): - metformin 1000 mg BID Prior therapies: - glimepiride cause hypoglycemia in the afternoon SMBG: Prescribed Darling Allan CGM Did receive from pharmacy was covered by Medicaid But has misplaced it during her move. Will continue to look for it to bring to review its use Does not perform SMBG Acute Complications Have you ever had a [...] not want to eat every day Lunch: [place] with ham/turkey montenegrin cheese crisostomo and mustard with Doritos Dinner: [...] area transportation options [] Languages other than [place] Korean: Ship'S Officer services provided No [] Allowances for cultural diversity: meal plan will be tailored for cultural food shavon [] Hearing: Gambling Monitor provided No [] Vision impaired: print augmentation [...] Reported on 06/24/2021) 30 tablet 3 ??? metFORMIN (GLUCOPHAGE) 1,000 mg Tablet Take 1 tablet by mouth 2 times daily (with meals). 180 tablet 1 ??? FreeStyle Sanjana 2 [place] Misc 1 each by Other route daily. [...] 0 ??? fluticasone propionate (FLONASE) 50 mcg/actuation [place], Suspension 1 spray by Each Nare route [...] 09/07/2005 TDAP 04/09/2019 , 06/24/2011 Prescription Insurance: [facility] [id number] Assessment and Recommendations: 1. Diabetes Goals of [...] appropriate DM regimen with basal coverage using metfomrin but without postprandial coverage o Appears adherent to meds without SE. Reviewed dosing and indication for each med. Med list is up to date and reconciled. Medications studied and to consider as add [...] as expected if BGs are increasing o Unable to review SMBG as pt does not monitor but with anticipated changes to her antidiabetic regimen would benefit from beginning SMBG o Blood sugar goals may vary for the individual, but in general the [place] [employer] recommends a fasting blood sugar [...] mg BID ?? Sent testing supplies to [employer] ?? Will recommend Ozempic 0.25 mg once weekly at followup as covered by insurance for [employer] coverage Lifestyle Modification Goals: ?? Start SMBG 1x [...] I will take my medications as directed Today's Teaching: Handouts given and reviewed: - PharmD Diabetes Packet - PharmD ACC My Plan for Heart Healthier Living Packet - Diabetic MyPlate - Monitoring blood sugar: 1. Clean finger with alcohol swab 2. Allow to dry 3. Use a new lancet and test strip every time 4. Insert test strip into glucometer 5. Close test strip container as soon as one test strip has been removed 6. Use lancet to get a drop of blood from finger 7. Line up drop of blood with test strip 8. Use cotton swap to wipe away any remaining blood on finger and/or wash hands 9. Remove test strip from meter and lancet from lancing device and discard 10. Record result in blood sugar log Plan: Tracking: Type of DM: DM Type [...] were made at the appointment and that [facility] is providing recommendations (summary located at top of note) for provider review and follow up. Julia Low RPH 07/27/21 documented in this encounter Plan of Treatment Upcoming Encounters Date Type Department Care Team (Late st Contact Info) Description 03/20/2024 9:00 AM EDT TH Visit (TeleHealth) Sleep Center at [facility] [address] [place] [phone] Denisse Hardwick, [facility] 03/20/2024 2:00 PM EDT Clinical Support Family Medicine at [facility] [address] [place] [address] Julia Low, [facility] 05/01/2024 11:20 AM EDT Appointment Mammography/[place] [address] Rodney Padilla MD [address] [place] [place] [address] 05/01/2024 1:45 PM EDT Office [place] [address] Juanpablo Hernandez MD [facility] [place] [address] 01/30/2025 1:30 PM EDT Appointment Hematology [place] [phone] 01/30/2025 3:[address] [place] [address] Arturo Cordero MD [facility] [place] [address] 01/30/2025 4:15 PM EDT Office Visit Hematology [place] [address] Arturo Cordero MD [facility] [place] [address] documented as of this encounter Visit Diagnoses Diagnosis Type 2 diabetes mellitus without long-term current use of insulin- Primary documented in this encounter Care Teams Hospice Educator Relationship Specialty Start Date End Date Luis E Narayan MD [facility] [address] [place] [address] PCP - General Family Medicine 03/26/19 01/19/22 documented as of this encounter
--- OUTSIDE RECORDS SUMMARY | 2024-03-04 21:23 | XMS_ITS | Encounter Summary ---
Author Organization [facility] Address [facility] [place] [address] Care Team Providers Care Curator Medical Museum Name Role Phone Luis E Narayan MD Primary Care Provider [phone] Reason for Visit * Reason Onset Date Comments Medication Refill 09/07/2021 Encounter Details Date Type Department Care Team (Late st Contact Info) Description 09/07/2021 Refill Family Medicine at [facility] [address] [place] [address] Luis E Narayan MD [facility] DR [address] [place] [address] Social History Tobacco Use Types Packs/Day Years [...] encounter Miscellaneous Notes * Telephone Encounter - Ivette Muñiz LPN - 09/09/2021 2:09 PM EST Requested Prescriptions Pending Prescriptions Disp Refills ??? fluticasone propionate (Flonase) 50 mcg/actuation [place], Suspension 16 g 11 Si spray by Each Nare route 2 times daily. Last office visit: seen today for teleheatlh with Yocasta Low Last refill: 08/04/2020 documented in this encounter Plan of Treatment Upcoming Encounters Date Type Department Care Team (Late st Contact Info) Description 03/20/2024 9:00 AM EDT TH Visit (TeleHealth) Sleep Center at [facility] [address] [place] [address] Denisse Hardwick, [facility] 03/20/2024 2:00 PM EDT Clinical Support Family Medicine at [facility] [address] [place] [address] Julia Low, [facility] 05/01/2024 11:20 AM EDT Appointment Mammography/DXA at [place] [phone] Rodney Padilla MD [address] [place] [address] 05/01/2024 1:45 PM EDT Office Visit Ophthalmology at [address] Juanpablo Hernandez MD [facility] [place] [address] 01/30/2025 1:30 PM EDT Appointment Hematology and Oncology at [address] 01/30/2025 3:[address] Scan at [place] [address] Arturo Cordero MD [facility] DR [place] [address] 01/30/2025 4:15 PM EDT Office Visit Hematology and Oncology at [place] [phone] Arturo Cordero MD [facility] [place] [address] documented as of this encounter Visit Diagnoses Not on filedocumented in this encounter Care Teams Curator Medical Museum Relationship Specialty Start Date End Date Luis E Narayan MD [facility] [address] [place] [address] PCP - General Family Medicine 03/26/19 01/19/22 documented as of this encounter
--- OUTSIDE RECORDS SUMMARY | 2024-03-04 21:23 | XMS_ITS | Encounter Summary ---
Author Organization [facility] [place] [address] Care Team Providers Care Circulator Name Role Phone Luis E Narayan MD Primary Care Provider [phone] Reason for Referral * Diagnostic Test (Routine) - Closed Specialty Diagnoses / Procedures Referred By Contac t Referred To Contact Radiology Diagnoses Malignant melanoma of conjunctiva, left Procedures CT Chest Abdomen Pelvis w Contrast (Generic) Leandra Lopes APRN [facility] DR HEMATOLOGY [place] [address] [facility] [place] [address] Referral ID Status Reason Start Date Expiration Date V isits Requested Visits Authorized [id number] Closed Specialty Service Requested 12/17/2020 06/18/2022 1 1 Reason for Visit * Diagnostic Test (Routine) - Closed Specialty Diagnoses / Procedures Referred By Contac t Referred To Contact Radiology Diagnoses Malignant melanoma of conjunctiva, left Procedures CT Chest Abdomen Pelvis w Contrast (Generic) Leandra Lopes APRN [facility] DR HEMATOLOGY [place] [address] [facility] [place] [address] Referral ID Status Reason Start Date Expiration Date V isits Requested Visits Authorized [id number] Closed Specialty Service Requested 12/17/2020 06/18/2022 1 1 Encounter Details Date Type Department Care Team (Late st Contact Info) Description 06/24/2021 12:31 PM EST - 06/24/2021 12:42 PM EST Hospital Encounter CT Scan at [facility] [place] [address] Leandra Lopes APRN [facility] DR HEMATOLOGY [place] [address] Malignant melanoma of conjunctiva, left Discharge Disposition: [...] by mouth daily. simvastatin (Zocor) 10 mg TabletIndications:Mixed hyperlipidemia Take [...] tablet 1 01/08/2021 08/02/2021 FreeStyle Sanjana 2 [place] MiscIndications:diabetes mellitus 1 each by Other route [...] 09/15/2020 09/19/2023 fluticasone propionate (FLONASE) 50 mcg/actuation [place], Suspension 1 spray by Each Nare route [...] TH Visit (TeleHealth) Sleep Center at [facility] [address] [place] [phone] Denisse Hardwick, [facility] 03/20/2024 2:00 PM EDT Clinical Support Family Medicine at [facility] [address] [place] [address] Julia Low, [facility] 05/01/2024 11:20 AM EDT Appointment Mammography/[place] [phone] oRdney Padilla MD [address] [place] [address] 05/01/2024 1:45 PM EDT Office [place] [address] Juanpablo Hernandez MD [facility] [place] [address] 01/30/2025 1:30 PM EDT Appointment Hematology [place] [address] 01/30/2025 3:[address] [place] [address] Arturo Cordero MD [facility] HEMATOLOGY [place] [address] 01/30/2025 4:15 PM EDT Office Visit Hematology [place] [address] Arturo Cordero MD [facility] DR HEMATOLOGY [place] [address] documented as of this encounter Procedures Procedure Name Priority Date/Time Associated Diagnosis Comments CT CHEST ABDOMEN PELVIS W CONTRAST (GENERIC) Routine 06/24/2021 2:45 PM EST Malignant melanoma of conjunctiva, left documented in this encounter Results * CT Chest Abdomen Pelvis w Contrast (Generic) (06/24/2021 2:45 PM EST) Anatomical Region Laterality Modality Abdomen, Pelvis Computed Tomogra phy 06/24/2021 2:50 PM EST Impressions 06/24/2021 4:35 PM EST Stable exam without metastatic disease. Stable diffuse fatty infiltration liver. Stable lipid rich left adrenal adenoma. Thank you for letting us participate in the care of this patient. ??If you are a health care provider and have any questions regarding this report, please contact the number below. ??For patients who have questions please contact the health customer care assistant that requested your imaging first. ? Electronically signed by: Paulina Saldivar MD, Radiology [place] ([phone]), at 06/24/2021 4:35 PM Narrative 06/24/2021 4:35 PM EST EXAMINATION: CT CHEST ABDOMEN PELVIS W CONTRAST (GENERIC) CLINICAL HISTORY: Melanoma, staging left eye conjunctiva melanoma high risk rule out distant mets. Last scan on 12/17/2020 TECHNIQUE: Helical CT of the chest, abdomen, and pelvis was performed following the intravenous administration of contrast. Administered 120.0 ml of OMNIPAQUE 350.00 mg/ml. Oral contrast was administered. COMPARISON: December 17, 2020 FINDINGS: Chest: Lungs and large airways: No nodules. No masses. Pleura: No effusion. Heart/vasculature: All size heart without pericardial effusion. No central pulmonary emboli. Normal caliber thoracic aorta. Lymph nodes: No pathologically enlarged supraclavicular, axillary, mediastinal nor hilar lymph nodes. Small scattered paratracheal and subcarinal lymph nodes are stable. Mediastinum and bess: Normal. Abdomen/pelvis: Liver: Mild diffuse fatty infiltration without focal lesion Bile ducts: Nondilated. Gallbladder: No calcified gallstones. Normal caliber wall. Pancreas: Normal attenuation without ductal dilatation. Spleen: Normal. Adrenals: 15 mm left adrenal nodule characterized as a lipid rich adenoma April 2019 MRI is stable. Previously measuring 17 mm. Difference likely reflecting position. Right adrenal gland normal. Kidneys: Partial interval retraction of scarring and soft tissue at the posterior medial interpolar left kidney where this is apposed to the tethered left psoas muscle. Urinary Bladder: Normal. Vasculature: Patent hepatic, portal and renal veins. Lymph Nodes: ??No pathologically enlarged mesenteric, retroperitoneal nor deep pelvic lymph nodes Bowel: Normal caliber loops of large and small bowel without mural thickening. Normal appendix. Peritoneum and mesentery: No ascites, free air, or loculated fluid collection. No mesenteric inflammation. Abdominal wall: Small fat filled right inguinal region hernia Reproductive organs: Normal contours Osseous structures: No suspicious lesions. Procedure Note Paulina Saldivar MD - 06/24/2021 EXAMINATION: CT CHEST ABDOMEN PELVIS W CONTRAST (GENERIC) CLINICAL HISTORY: Melanoma, staging left eye conjunctiva melanoma high risk rule out distant mets. Last scanon 12/17/2020 TECHNIQUE: Helical CT of the chest, abdomen, and pelvis was performedfollowing the intravenous administration of contrast. Administered 120.0 ml ofOMNIPAQUE 350.00 mg/ml. Oral contrast was administered. COMPARISON: December 17, 2020 FINDINGS: Chest: Lungs and large airways: No nodules. No masses. Pleura: No effusion. Heart/vasculature: All size heart without pericardial effusion. Nocentral pulmonary emboli. Normal caliber thoracic aorta. Lymph nodes: No pathologically enlarged supraclavicular, axillary,mediastinal nor hilar lymph nodes. Small scattered paratracheal and subcarinal lymphnodes are stable. Mediastinum and bess: Normal. Abdomen/pelvis: Liver: Mild diffuse fatty infiltration without focal lesion Bile ducts: Nondilated. Gallbladder: No calcified gallstones. Normal caliber wall. Pancreas: Normal attenuation without ductal dilatation. Spleen: Normal. Adrenals: 15 mm left adrenal nodule characterized as a lipid richadenoma April 2019 MRI is stable. Previously measuring 17 mm. Differencelikely reflecting position. Right adrenal gland normal. Kidneys: Partial interval retraction of scarring and soft tissue at the posterior medial interpolar left kidney where this is apposed to thetethered left psoas muscle. Urinary Bladder: Normal. Vasculature: Patent hepatic, portal and renal veins. Lymph Nodes: No pathologically enlarged mesenteric, retroperitoneal nordeep pelvic lymph nodes Bowel: Normal caliber loops of large and small bowel without muralthickening. Normal appendix. Peritoneum and mesentery: No ascites, free air, or loculated fluidcollection. No mesenteric inflammation. Abdominal wall: Small fat filled right inguinal region hernia Reproductive organs: Normal contours Osseous structures: No suspicious lesions. IMPRESSION Stable exam without metastatic disease. Stable diffuse fatty infiltration liver. Stable lipid rich left adrenal adenoma. Thank you for letting us participate in the care of this patient. If youare a health care provider and have any questions regarding this report,please contact the number below. For patients who have questions please contactthe health customer care assistant that requested your imaging first. Electronically signed by: Paulina Saldivar MD, [facility]([phone]), at 06/24/2021 4:35 PM Leandra Lopes APRN [facility] CT ORDERABLES documented in this encounter Visit Diagnoses Diagnosis Malignant melanoma of conjunctiva, left documented in this encounter Administered Medications Inactive Administered Medications - up to 3 most recent administrations Medication Order MAR Action Action Date Dose Rate Site iohexoL (Omnipaque) (350 mg/mL) solution 0-200 mL 0-200 mL, Intravenous, ONCE PRN, 1 dose, Starting on Carolee 06/24/21 at 1431, Until Carolee 06/24/21 at 1431, Per Protocol, Warning Vesicant/Irritant Medication , Radiology Contrast, Routine Given 06/24/2021 2:31 PM EST 120 mLs iohexoL (Omnipaque) (350 mg/mL) solution 0-50 mL 0-50 mL, Oral, ONCE PRN, 1 dose, Starting on Carolee 06/24/21 at 1431, Until Carolee 06/24/21 at 1431, Per Protocol, Warning Vesicant/Irritant Medication , Radiology Contrast, Routine Given 06/24/2021 2:31 PM EST 50 mLs documented in this encounter Care Teams Circulator Relationship Specialty Start Date End Date Luis E Narayan MD [facility] [address] [place] [address] PCP - General Family Medicine 03/26/19 01/19/22 documented as of this encounter
--- OUTSIDE RECORDS SUMMARY | 2024-03-04 21:23 | XMS_ITS | Encounter Summary ---
Author Organization Formerly [facility] [address] Care Team Providers Care Gluer And Wedger Name Role Phone Luis E Narayan MD Primary Care Provider [phone] Reason for Visit * Reason Comments Leg Swelling Both sides Encounter Details Date Type Department Care Team (Latest Contact Info) Description 08/20/2021 10:40 AM EST Office Visit Family Medicine at [facility] [address] [place] [address] Hair Kelly MD [facility] [place] [address] Edema of lower extremity; Primary osteoarthritis of both knees Social History Tobacco Use Types Packs/Day Years [...] Sign Reading Time Taken Comments Blood Pressure 147/79 08/20/2021 10:48 AM EST Pulse 71 08/20/2021 10:48 AM EST Temperature 37 ??C (98.6 ??F) 08/20/2021 10:48 AM EST Respiratory Rate 19 08/20/2021 10:48 AM EST Oxygen Saturation 98% 08/20/2021 10:48 AM EST Inhaled Oxygen Concentration - - Weight 110.7 kg (244 lb) 08/20/2021 10:48 AM EST Height - - Body Mass Index 43.09 07/16/2021 8:47 AM EST documented in this encounter Progress Notes * Hair Kelly MD - 08/20/2021 10:40 AM EST Alize Gramajo is a 60 y.o. female who presents with a complaint of bilateral knee pain and bilateral leg swelling. Her knees have been painful for months but worse in the last week or so. Her lower extremity edema has increased in the last week as well. She does not have orthopnea or increase in her usual dyspnea. She is having no chest pain. She has not increased salt in her diet. She is not taking daily NSAIDs. She has not had recent fall or injury to her knees. There is no catching locking or giving way of either knee. Patient Active Problem List Diagnosis Code ??? 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 Altered [...] BPPV (benign paroxysmal positional vertigo), right H81.11 Allergies Allergen Reactions ??? Codeine Phosphate Nausea And Vomiting ??? Erythromycin Base Nausea Only ??? Azithromycin ??? Ibuprofen Stomach upset ??? Lisinopril cough ??? Nsaids (Non-Steroidal Anti-Inflammatory Drug) Nausea And Vomiting Current Outpatient Medications on File Prior to Visit Medication Sig Dispense Refill ??? metoprolol succinate [...] 30 tablet 3 ??? FreeStyle Sanjana 2 [place] Misc 1 each by Other route daily. [...] 0 ??? fluticasone propionate (FLONASE) 50 mcg/actuation [place], Suspension 1 spray by Each Nare route [...] facility-administered medications on file prior to visit. Physical Exam: Vitals: 08/20/21 1048 BP: 147/79 Pulse: 71 Resp: 19 Temp: 37 ??C (98.6 ??F) SpO2: 98% Weight: 110.7 kg (244 lb) Wt Readings from Last 3 Encounters: 08/20/21 110.7 kg (244 lb) 07/16/21 109.7 kg (241 lb 12.8 oz) 06/24/21 110.5 kg (243 lb 9.6 oz) GEN: AAOx3, NAD HEENT: Eyes: EOMI NECK: No JVD HEART: RRR S1 S2 nl, no murmur LUNGS: CTA bilat PSYCH: affect and interaction appropriate, does not present depressed Extremities: Pitting edema from the mid graham down bilaterally. Nontender. No erythema. Knees: Small effusion bilaterally with medial joint line tenderness both knees right greater than left. 1. Edema of lower extremity Is a bit unclear what her edema is from. She has normal renal function. Echo 2 years ago showed normal ejection fraction. She has had a recent CT abdomen and pelvis and there is no venous obstruction proximally. No change in sodium intake, no NSAID use. Chart review shows that she has had edema in the past. Is also possible she could have edema secondary to Bruce's cyst from her osteoarthritis of the knees. Seems a bit odd this would happen bilaterally at the same time. She is not on a diuretic and has good renal function so I will give her 3 days of Lasix 20 mg to see what happens. Plan based on result. 2. Primary osteoarthritis of both knees I am interested to see if she gets more improvement in the leg on the right regarding her edema after steroid shot for her arthritis. 1% lidocaine with epinephrine was used for anesthesia. Sterile prep was performed with Betadine. 40mg of Kenalog in 1.5 cc of lidocaine was injected intra-articularly using a lateral approach in theright knee. Patient tolerated the procedure quite well. Simple bandage was applied. I will connect with her after 3 days of Lasix and the steroid shot and see what kind of results shegets. documented in this encounter Plan of Treatment Upcoming Encounters Date Type Department Care Team (Late st Contact Info) Description 03/20/2024 9:00 AM EDT TH Visit (TeleHealth) Sleep Center at [facility] [address] [place] [address] Denisse Hardwick, [facility] 03/20/2024 2:00 PM EDT Clinical Support Family Medicine at [facility] [address] [place] [address] Julia Low [facility] 05/01/2024 11:20 AM EDT Appointment Mammography/[place] [phone] Rodney Padilla MD [address] [place] [place] [address] 05/01/2024 1:45 PM EDT [place] [address] Juanpablo Hernandez MD [facility] [place] [place] [address] 01/30/2025 1:30 PM EDT Appointment Hematology and Oncology at [place] [address] 01/30/2025 3:[address] Scan at [place] [address] Arturo Cordero MD [facility] [address] [place] [address] 01/30/2025 4:15 PM EDT Office Visit Hematology and Oncology at [place] [address] Arturo Cordero MD [facility] DR HEMATOLOGY [place] [address] documented as of this encounter Visit Diagnoses Diagnosis Edema of lower extremity Edema Primary osteoarthritis of both knees Primary localized osteoarthrosis, lower leg documented in this encounter Care Teams Gluer And Wedger Relationship Specialty Start Date End Date Luis E Narayan MD [facility] [address] [place] [address] PCP - General Family Medicine 03/26/19 01/19/22 documented as of this encounter
--- OUTSIDE RECORDS SUMMARY | 2024-03-04 21:23 | XMS_ITS | Encounter Summary ---
Author Organization [facility] [place] [address] Care Team Providers Care Wet Inspector Optical Glass Name Role Phone Luis E Narayan MD Primary Care Provider [phone]- [phone] Encounter Details Date Type Department Care Team (Late st Contact Info) Description 11/17/2021 11:19 AM EDT - 11/17/2021 11:59 PM EDT Hospital En[place] [address] Leandra Black, DRAWER IN [facility] DR HEMATOLOGY [place] [address] Malignant melanoma of conjunctiva, left; Malignant melanoma, [...] topically daily. 100 each 3 11/07/2022 11/02/2023 FreeStyle Sanjana 2 [place] MiscIndications:diabetes mellitus 1 each by Other route [...] 10/01/2021 01/29/2022 fluticasone propionate (Flonase) 50 mcg/actuation [place], Suspension 1 spray by Each Nare route [...] for Flatulence. 30 tablet 3 02/03/2021 06/16/2022 albuteroL (Proventil HFA) 90 mcg/actuation HFA Aerosol [...] TH Visit (TeleHealth) Sleep Center at [facility] [address] [place] [phone] Denisse Hardwick [employer] [facility] 03/20/2024 2:00 PM EDT Clinical Support Family Medicine at [facility] [address] [place] [phone] Julia Low [place] 05/01/2024 11:20 AM EDT Appointment Mammography/[place] [address] Rodney Padilla MD [address] [facility] [place], [place] [id number] 05/01/2024 1:45 PM EDT Office Visit Ophthalmology at [place] [phone] Juanpablo Hernandez MD [facility] [place] [address] 01/30/2025 1:30 PM EDT Appointment Hematology and Oncology at [place] [address] 01/30/2025 3:[address] Scan at [address] Arturo Cordero MD [facility] [address] [place] [address] 01/30/2025 4:15 PM EDT Office Visit Hematology and Oncology at [place] [phone] Arturo Cordero MD [facility] DR HEMATOLOGY [place] [address] documented as of this encounter Procedures Procedure Name Priority Date/Time Associated Diagnosis Comments US SOFT TISSUE HEAD OR NECK Routine 11/17/2021 11:45 AM EDT Malignant melanoma of conjunctiva, left Malignant melanoma, unspecified site documented in this encounter Results * US Soft Tissue Head Or Neck (11/17/2021 11:45 AM EDT) Anatomical Region Laterality Modality Ultrasound 11/17/2021 11:4 2 AM EDT Impressions 11/17/2021 12:00 PM EDT Morphologically normal-appearing lymph nodes in the left neck. No suspicious sonographic findings. Thank you for letting us participate in the care of this patient. If you are a health care provider and have any questions regarding this report, please contact the number above. For patients who have questions, please contact the health career guidance counselor that requested your imaging first. ? Nakia Goetz, Staff Physician Electronically Signed Final Report ?? 11/17/2021 11:59 am Narrative 11/17/2021 12:00 PM EDT Ultrasound Soft Tissue ?(Signed Final 11/17/2021 11:59 am) Neck Left PATIENT INFO: ID #: ? [id number] ?: [birth year] (61 yrs)(F) Name: ? PATIENCE MANJARREZ ? Visit Date: 11/17/2021 11:42 am PERFORMED BY: Performed By: ? Diana Lowe RDMS Attending: ?Sofy COLVIN, Nakia Andrade Referred By: ?LEANDRA BLACK Location: ? [place] SERVICE(S) PROVIDED: USTN - Soft Tissue Neck or Head - [id number] ? [id number] INDICATIONS: History of left eye conjunctival melanoma [...] am) Neck Left PATIENT INFO: ID #: [id number] : [birth year] (61 yrs)(F) Name: PATIENCE MANJARREZ Visit Date: 11/17/2021 11:42 am PERFORMED BY: Performed By: Diana Lowe RDMS Attending: Nakia Goetz MD Referred By: LEANDRA BLACK Location: [place] SERVICE(S) PROVIDED: USTN - Soft Tissue Neck or Head - [id number] INDICATIONS: History of left eye conjunctival melanoma [...] the left neck. No suspicious sonographic findings. Thank you for letting us participate in the care of this patient. If you are a health care provider and have any questions regarding this report, please contact the number above. For patients who have questions, please contact the health career guidance counselor that requested your imaging first. Nakia Goetz, Staff Physician Electronically Signed Final Report 11/17/2021 11:59 am Leandra Black APRN IMG US GEN ORDERAB LES documented in this encounter Visit Diagnoses Diagnosis Malignant melanoma of conjunctiva, left Malignant melanoma, unspecified site documented in this encounter Care Teams Wet Inspector Optical Glass Relationship Specialty Start Date End Date Luis E Narayan MD [facility] [address] [place] [address] PCP - General Family Medicine 03/26/19 01/19/22 documented as of this encounter
--- OUTSIDE RECORDS SUMMARY | 2024-03-04 21:24 | XMS_ITS | Encounter Summary ---
Author Organization [facility] Address [facility] [place] [address] Care Team Providers Care Venereal Disease Investigator Name Role Phone Luis E Narayan MD Primary Care Provider Reason for Referral * E-Consultation (Routine) - Closed Specialty Diagnoses / Procedures Referred By Gonzalez kumari Referred To Contact Pharmacy Diagnoses Type 2 diabetes mellitus with hyperglycemia, without long-term current use of insulin Procedures eConsult to [facility] (Primary Care Use Only) Erik Cyr MD [facility] [place] [address] Referral ID Status Reason Start Date Expiration Date Visits Re quested Visits Authorized [id number] Closed 12/04/2020 12/04/2021 1 1 Reason for Visit * Reason Comments Hyperglycemia last A1C was 7.8, leon ving trouble with meter not working, got a new meter through insurance and still not working correctly, running between 180-200 Edema legs are swelling wh en really hot Encounter Details Date Type Department Care Team (Latest Contact Info) Description 12/03/2020 2:00 PM EDT TH Visit (TeleHealth) Family Medicine at [facility] [address] [place] [address] Erik Cyr MD [facility] [place] [address] Type 2 diabetes mellitus without long-term current [...] like food, housing, medical care, and heating? Hard 09/15/2020 Exercise Vital Sign Answer Date Recorde d On average, how many days pe r week do you engage in moderate to strenuous exercise (like a brisk walk)? 3 days 09/15/2020 On average, how many minutes do you engage in exercise at this level? 20 min 09/15/2020 Hunger Vital Sign Answer Date Recorded Within the past 12 months, y ou worried that your food would run out before you got the money to buy more. Never true 09/16/19 21 Within the past 12 months, t he food you bought just didn't last and you didn't have money to get more. Never true 09/15/2020 PRAPARE - Transportation Answer Date Re corded In the past 12 months, has l ack of transportation kept you from medical appointments or from getting medications? No 03/2021 In the past 12 months, has l ack of transportation kept you from meetings, work, or from getting things needed for daily living? No 09/15/2020 Housing Stability Vital Sign Answer Oziel e Recorded In the last 12 months, was t here a time when you were not able to pay the mortgage or rent on time? Patient refused 09/16/19 21 In the last 12 months, how many places have you lived? 1 09/15/2020 In the last 12 months, was t here a time when you did not have a steady place to sleep or slept in a chcf (including now)? No 09/15/2020 Sex and Gender Information Value Date Recorded Sex Assigned at Not on file Gender Identity Not on file Sexual Orientation Not on file documented as of this encounter Progress Notes * Cinda George, [facility] - 12/03/2020 2:00 PM EDT Patient contacted at [phone] Preferred phone: [phone] Patient confirms location for visit as: [place] (not eligible for telehealth visit if outside of [place] & should reschedule when back) Home address: [address] [place] [phone] If phone visit: patient verbally consents to this telephone visit and understands that this visit may be billed, similar to a clinic office visit. Patient is OK with possibility of a medical student involved in their care Medications were reconciled. Allergies were reviewed. Health Maintenance was reviewed and pended for provider review. Chief complaint was updated. Patient was informed provider could be earlier or later than scheduled time, typically within 15 minutes of scheduled. If the pre-call was done 2 weeks before appt date, ask the Patient when would be a good time to call back on the day before the appt, so we can make sure nothing has changed: N/A Questionnaires administered and results (can pull in with .Q(questionnaire)) Please place an X in the box if the questionnaire was assigned [] Pediatric well visit questionnaire(s) - Bright futures, M-Chat (18/24 mo) [] Pediatric Smart Set for well visits (add AVS) [] PHQ-9, TERELL-7, (depression/anxiety) AUDIT (alcohol) for behavioral health issues as relevant to visit (med check / well visits) and on patient problem list [] BAM (Brief addiction monitor) for MAT visit for buprenorphine [] FALLS questionnaire for hospital follow-up, new medicaid pt [] CCSA for non-AWV preventive visits, new medicaid [] AWV questionnaire for Annual Wellness Visits [] CHIROPRACTIC Questionnaire [] NONE Please ask the Patient if they have any of these tools available: If patients do have these tools please ask them to take their vitals prior to the provider visit. Please place an X in the box if they have the following, [] Scale [] BP Cuff [] Pulse Oximeter [] Thermometer * Erik Cyr MD - 12/03/2020 2:00 PM EDT TELEHEALTH VISIT Patient location: Home address on [place]: [place] [address] Mode of communication documented under telehealth requirements as appropriate Callback number if video visit: Preferred phone number on file: [phone] CHART REVIEW Made appointment for high blood sugars SUBJECTIVE Alize Gramajo is a 60 y.o. female addressed via above noted modality today for: Chief Complaint Patient presents with ??? Hyperglycemia last A1C was 7.8, having trouble with meter not working, got a new meter through insurance and still not working correctly, running between 180-200 ??? Edema legs are swelling when really hot High blood sugars Says for last several months Today 203 After meals were 202 Takes metformin 1000mg BID States she was on glimiperide in years past but once she changed her diet started having hypoglycemia Anxiety, depression, wakes up in a panic Wonders if her emotional state is affecting sugars Has had a lot of stress in last year with personal health and family issues Because she's emotional she's eating things she shouldn't Has been snacking more in evenings Psychiatrist is working to change her meds; currently on lamotrigine, considering switching to seroquel Last night roasted chicken, salad w/ vegetables Current meter gives her machine errors and is old Interested in learning if Freestyle Sanjana is possible for her Has chronic left leg edema Left foot -> ankle can swell up more during hot weather Just wondering why Elevates leg, which improves it No orthopnea Has had both moderna vaccines ROS As per HPI and Denies fever, cough, rashes Patient Active Problem List Diagnosis Code ??? 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 Altered mental status R41.82 ??? Abnormal MRI of head R93.0 ??? Mixed hyperlipidemia E78.2 ??? Essential hypertension I10 ??? Recurrent major depressive disorder, in remission F33.40 ??? Chronic bilateral low back pain without sciatica M54.5, G89.29 ??? TITO (obstructive sleep apnea) G47.33 [...] BPPV (benign paroxysmal positional vertigo), right H81.11 Current Outpatient Medications on File Prior to Visit Medication Sig Dispense Refill ??? cyclobenzaprine (Flexeril) 5 mg Tablet Take 1 tablet by mouth 3 times daily as needed for Muscle spasms. 21 tablet 0 ??? albuteroL (Proventil HFA) 90 mcg/actuation HFA Aerosol Inhaler Inhale 2 puffs into the lungs every 4 hours as needed for wheeze. Use with spacer 1 Inhaler 11 ??? inhalational spacing device Spacer For use with albuterol inhaler every 4 hours as needed for wheeze. 1 each 0 ??? metoprolol succinate XL (Toprol XL) 25 mg Tablet Sustained Release 24 hr Take 1 tablet by mouthdaily. 90 tablet 1 ??? clopidogreL (Plavix) 75 mg Tablet Take 1 tablet by mouth daily. Restart post-operatively on 07/05 90 tablet 1 ??? loratadine (Claritin) 10 mg Tablet Take 1 tablet by mouth daily. 90 tablet 1 ??? nicotine (NICODERM CQ) 21 mg/24 hr Patch 24 hr Change 1 patch on the skin every 24 hours. ??? nicotine polacrilex (NICORETTE) 2 mg Gum Take 2 mg by mouth as needed. ??? polyethylene glycoL (Miralax) 17 gram Powder in Packet Take 17 g by mouth daily. 14 each 0 ??? fluticasone propionate (FLONASE) 50 mcg/actuation Treichlers, Suspension 1 spray by Each Nare route 2 times daily. 16 g 11 ??? metFORMIN (GLUCOPHAGE) 1,000 mg Tablet Take 1 tablet by mouth 2 times daily (with meals). 180 tablet 1 ??? nicotine (NICOTROL) 10 mg Cartridge Inhale 1 puff into the lungs as needed for Smoking cessation. 168 each 3 ??? traZODone (Desyrel) 100 mg Tablet Take 1 tablet by mouth nightly. 90 tablet 3 ??? simvastatin (Zocor) 10 mg Tablet Take 1 tablet by mouth daily. 90 tablet 3 ??? amLODIPine (Norvasc) 5 mg Tablet Take 1 tablet by mouth daily. 90 tablet 3 ??? omeprazole 20 mg Tablet, Delayed Release (E.C.) Take 1 tablet by mouth daily. 90 tablet 3 ??? LORazepam (Ativan) 1 mg Tablet Take 1 mg by mouth every 6 hours as needed for Anxiety. ??? busPIRone (Buspar) 10 mg Tablet Take 15 mg by mouth 2 times daily. ??? losartan (Cozaar) 100 mg Tablet Take 1 tablet by mouth daily. 90 tablet 3 ??? budesonide-formoteroL (SYMBICORT) 80-4.5 mcg/actuation HFA Aerosol Inhaler Inhale 2 puffs into the lungs 2 times daily. 1 Inhaler 11 ??? lamoTRIgine (LaMICtal) 100 mg Tablet Take 1 tablet by mouth daily. 90 tablet 3 ??? lancets Misc Use for twice daily testing 100 each 11 ??? blood sugar diagnostic strips Strip Use as instructed 100 each 12 ??? Blood-Glucose Meter Misc Use twice daily 1 each 0 ??? aspirin EC 81 mg Tablet, Delayed Release (E.C.) Take 81 mg by mouth daily. ??? nicotine (NICODERM CQ) 21 mg/24 hr [address] 1 patch onto the skin daily as needed. 30 patch 11 ??? nitroGLYcerin (NITROSTAT) 0.4 mg Tablet, Sublingual Place 1 tablet under the tongue See Admin Instructions. 30 tablet 0 ??? fluorometholone (FML Forte) 0.25 % Drops, Suspension Place 1 drop into the left eye 3 times daily. (Patient not taking: Reported on 12/03/2020) 10 mL 3 No current facility-administered medications on file prior to visit. OBJECTIVE There were no vitals taken for this visit. Telephone encounter. Gen: No acute distress Resp: Sounds to be breathing comfortably on room air, speaking in full non- labored sentences, no cough or audible wheeze Neuro: Coherent with normal mentation, appropriately engaging/responding in dialogue with linear thought process Psych: Good mood observed, no observable engagement with an internal/external stimulus ASSESSMENT & PLAN Alize is a 60 yo F with T2DM w/ polyneuropathy, chronic lower extremity edema, HLD, HTN, and mooddisorder presenting with report of persistently elevated blood sugars. By patient's report, sugars have been elevated in low 200 range for last few months. This in combination with lack of acute symptoms is overall reassuring against an acute process and more consistent with chronically unstable diabetes. Patient has been adherent on metformin but reports dietary indiscretions in setting of dysregulated moods. -- Recommended return to diabetic diet -- Continue working with psychiatrist on medical management of mood disorders -- Discussed with patient that she may benefit from a second diabetic agent. Discussed victoza given her cardiac risk factors; patient open although wary of starting an injectable. She is also open to restarting a sulfonylurea. Will message her PCP to discuss possible med changes. -- Review of notes shows patient had reported current glucometer dysfunction few months ago; will inquire with team on status of replacing current glucometer #Edema -- Limited time to discuss during today's visit; overall reassuring chronic features, denies orthopnea, chest pressure, or chest pain -- Recommended good hydration with weather changes, elevation of affected leg, and trial of daytimecompression stockings (instructed removal when asleep) For phone visit: patient verbally consented to this telephone visit and understands that this visitmay be billed, similar to a clinic office visit. I provided care to the patient today via telephonecall, total time of call documented elsewhere in encounter under telehealth visit requirements Duration: 22 minutes 12/10/2020: Received pharmacy e-consult recommendations: Recommend [employer] system, which they say is covered by patient's insurance with $0 copay. Will send rx now and notify patient. documented in this encounter Miscellaneous Notes * Addendum Note - Erik Cyr MD - 12/03/2020 2:00 PM EDTAddended by: ERIK CYR on: 12/04/2020 11:13 PM Modules accepted: Orders * Addendum Note - Erik Cyr MD - 12/03/2020 2:00 PM EDTAddended by: ERIK CYR on: 12/10/2020 10:35 AM Modules accepted: Orders documented in this encounter Plan of Treatment Upcoming Encounters Date Type Department Care Team (Late st Contact Info) Description 03/20/2024 9:00 AM EDT TH Visit (TeleHealth) Sleep Center at [facility] [address] [place] [phone] Denisse Hardwick, [facility] 03/20/2024 2:00 PM EDT Clinical Support Family Medicine at [facility] [address] [place] [phone] Julia Low, [facility] 05/01/2024 11:20 AM EDT Appointment Mammography/[place] [phone] Rodney Padilla MD [address] [facility] [place] [address] 05/01/2024 1:45 PM EDT Office [place] [phone] Juanpablo Hernandez MD [facility] [place] [address] 01/30/2025 1:30 PM EDT Appointment Hematology [place] [phone] 01/30/2025 3:[address] [place] [address] Arturo Cordero MD [facility] [place] [address] 01/30/2025 4:15 PM EDT Office Visit Hematology [place] [address] Arturo Cordero MD [facility] [place] [address] documented as of this encounter Visit Diagnoses Diagnosis Type 2 diabetes mellitus without long-term current use of insulin- Primary documented in this encounter Care Teams Venereal Disease Investigator Relationship Specialty Start Date End Date Luis E Narayan MD [facility] [address] [place] [address] PCP - General Family Medicine 03/26/19 01/19/22 documented as of this encounter
--- OUTSIDE RECORDS SUMMARY | 2024-03-04 21:24 | XMS_ITS | Encounter Summary ---
Author Organization [facility] [place] [address] Care Team Providers Care Assistant Editor Name Role Phone Luis E Narayan MD Primary Care Provider [phone] Reason for Referral * Consultation (Routine) - Closed Specialty Diagnoses / Procedures Referred By Gonzalez kumari Referred To Contact Family Medicine Diagnoses Type 2 diabetes mellitus with other specified complication, without long-term current use of insulin Tamera Khan APRN [facility] [address] Julia Low, [facility] Referral ID Status Reason Start Date Expiration Date V isits Requested Visits Authorized [id number] Closed Assume Subset of Care 06/14/2021 06/14/2022 1 1 Reason for Visit * Reason Comments Follow-up GI problems Dental Pain top and bottom probl ems in right side of mouth, wants antibiotics Chills thinking her teeth p roblem is an infection Medication Refill Encounter Details Date Type Department Care Team (Late st Contact Info) Description 06/14/2021 4:00 PM EST Office Visit Family Medicine at [facility] [address] [place] [address] Celina Narayan MD [facility] [address] [place], [place] [id number] Diarrhea, unspecified type; Type 2 diabetes mellitus with other specified complication, without long-term current use of insulin; Tooth abscess Social History Tobacco Use Types Packs/Day Years [...] Sign Reading Time Taken Comments Blood Pressure 181/92 06/14/2021 4:04 PM EST Pulse 73 06/14/2021 4:04 PM EST Temperature 36.4 ??C (97.5 ??F) 06/14/2021 4:04 PM ES T Respiratory Rate 18 06/14/2021 4:04 PM EST Oxygen Saturation 99% 06/14/2021 4:04 PM EST Inhaled Oxygen Concentration - - Weight 109.9 kg (242 lb 3.2 oz) 06/14/2021 4:04 PM EST Height 161.3 cm (5' 3.5) 06/14/2021 4:04 PM EST Body Mass Index 42.23 06/14/2021 4:04 PM EST documented in this encounter Patient Instructions * Patient Instructions* Tamera Khan APRN - 06/14/2021 4:00 PM EST Continue to use mouthwash, take antibiotics and keep dentist appointment. If you develop signs or symptoms of low blood sugar or high blood sugar, please go to the ER. These include: Low: ? Nausea. ? Hunger. ? Feeling nervous, irritable, or shaky. ? Cold, clammy skin. ? Sweating (when you're not exercising). ?? Use the rule of 15 to treat low blood sugar. This includes eating 15 grams of carbohydrate from a quick-sugar food, such as 3 or 4 glucose tablets or ?? cup of juice. Wait 15 minutes and check your blood sugar. If it is still below 70 mg/dL, eat another 15 grams of carbohydrate. Repeat this every 15 minutes until your blood sugar is in a safe target range. High: ? You passed out (lost consciousness). ? You are confused or cannot think clearly. documented in this encounter Progress Notes * Tamera Khan APRN - 06/14/2021 4:00 PM EST Images from the original note were not included. Subjective: Patient ID: Alize Gramajo is a 60 y.o. female. Presenting with 7 days of tooth pain and follow up on GI issues. Chief Complaint Patient presents with ??? Follow-up GI problems ??? Dental Pain top and bottom problems in right side of mouth, wants antibiotics ??? Chills thinking her teeth problem is an infection ??? Medication Refill Thinks she has an infected tooth, on the right lower teeth in the back molars. Swelling in the cheek. Has been using the magic mouthwash which was prescribed previously. No fevers, but does endorse chills. Notes that she had this infection present when she got her blood work done previously, which is the likely cause for her mild elevation in WBC count/ elevated platelets. Has appointment with dentist next week to have teeth pulled. She also notes some episodes of diarrhea that coincides with the chills. Concerned about blood sugars, wanting to know if she can add another diabetes medication. GI issues are ongoing but slightly improved. Has appointment with GI for July. Moving into her own place next weekend, patient excited for this. Review of Systems As above myD-H Primary Care 01/27/2020 PROMIS 10-Health in general Good PROMIS 10-Quality of life Good PROMIS 10-Physical health Good PROMIS 10-Mental health Fair PROMIS 10-Satisfaction with social activities Good PROMIS 10-Ability to carry out social activities Fair PROMIS 10-Ability to carry out physical activities Mostly PROMIS 10-Bothered by emotional problems Often PROMIS 10-Rate of fatigue Moderate PROMIS 10-Rate of pain 4 PROMIS 10- Physical Health Score 42.3 PROMIS 10- Mental Health Score 38.8 REVIEW OF SYSTEMS 02/03/2021 Constitutional Weight gain, Fatigue, lack of energy, Drowsiness Ear / nose / throat / mouth None of the above Eyes Other eye problems Respiratory None of the above Cardiovascular Swelling of legs Gastrointestinal Nausea, vomiting, Heartburn, indigestion, Feeling bloated, Other stomach, intestine, or bowel symptoms Skin, hair Dry skin, Itching Musculoskeletal None of the above Neurological Balance difficulty, dizziness, Headaches Hematologic / Lymphatic None of the above Genitourinary Frequent urination, Urinary incontinence No flowsheet data found. PHQ-9 QUESTIONNAIRE (AMB) 06/14/2021 PHQ - 9 Score (Clinic) - PHQ - 9 Score (Patient) 9 (Mild Depression) Little interest or pleasure (Clinic) Not at all Little interest or pleasure (Patient) Several days Down, depressed, hopeless (Clinic) Several Days Down, depressed, hopeless (Patient) Several days Trouble sleeping (Clinic) - Trouble sleeping (Patient) More than half the days Tired or no energy (Clinic) - Tired or no energy (Patient) Several days Poor appetite or overeating (Clinic) - Poor appetite or overeating (Patient) More than half the days Feeling like a failure (Clinic) - Feeling like a failure (Patient) Several days Trouble concentrating (Clinic) - Trouble concentrating (Patient) Not at all Moving or speaking slowly (Clinic) - Moving or speaking slowly (Patient) Several days Would be better off (Clinic) - Would be better off (Patient) Not at all How difficult are the problems (Clinic) - I reviewed problem list and med list in EPIC Objective: BP (!) 181/92 (BP Location (NBP): Left arm, Patient Position: Sitting, BP Cuff Sizes: Large Adult (32-43 cm)) Pulse 73 Temp 36.4 ??C (97.5 ??F) Resp 18 Ht 161.3 cm (5' 3.5) Wt 109.9 kg (242 lb 3.2 oz) SpO2 99% BMI 42.23 kg/m?? Physical Health:Fair PHQ-9 QUESTIONNAIRE SCORE ONLY (AMB) 06/14/2021 PHQ - 9 Score (Clinic) - PHQ - 9 Score (Patient) 9 (Mild Depression) Some recent data might be hidden Physical Exam Constitutional: General: She is not in acute distress. Appearance: Normal appearance. She is obese. She is not ill-appearing or toxic-appearing. HENT: Right Ear: Tympanic membrane and ear canal normal. Left Ear: Tympanic membrane and ear canal normal. Mouth/Throat: Dentition: Abnormal dentition. Dental tenderness, gingival swelling, dental caries and dental abscesses present. Pharynx: Posterior oropharyngeal erythema present. Comments: Current infected teeth with gingival swelling Neurological: Mental Status: She is alert. Recent Results (from the past 24 hour(s)) POCT urine dipstick Result Value Ref Range POC pH, UA 5 5.0 - 8.5 POC Leuk, UA neg Negative - Negative POC Nitrite, UA neg Negative - Negative POC Protein, UA neg Negative - Negative mg/dL POC Glucose, UA normal Normal - Normal mg/dL POC Ketone, UA neg Negative - Negative POC Blood, UA neg Negative - Negative leydi/uL POCT Fingerstick Glucose Result Value Ref Range POC Glucose 100 60 - 199 mg/dl Assessment and Plan: 1. Diarrhea, GI issues Discussed results of US, and referral to GI. Patient reporting that for the most part pain is not as much of an issue if she maintains her diet well. Will anticipate GI recommendations. 2. Type 2 diabetes mellitus with other specified complication, without long-term current use of insulin Discussed signs/symptoms of hyper/hypoglycemia in setting of infection. Patient verbalized understanding. - POCT Fingerstick Glucose - Referral to [facility] (Primary Care Use Only) - POCT urine dipstick 3. Tooth abscess Will keep dental appointment, no current signs of systemic infection. Reviewed symptoms for which she should present to the ER including increasing swelling and being unable to control secretions well and trouble breathing. She verbalized understanding. - amoxicillin (AMOXIL) 500 mg Tablet; Take 1 tablet by mouth 3 times daily for 14 days. Dispense: 42 tablet; Refill: 0 - metroNIDAZOLE (Flagyl) 500 mg Tablet; Take 1 tablet by mouth 3 times daily for 14 days. Dispense:42 tablet; Refill: 0 - Tylenol as needed for pain BPs elevated, most likely due to pain as typically she has good BP control Follow up 2 weeks to make sure tooth infection has resolved. Time-based visit: Yes: 45 minutes visit spent reviewing chart (labs, meds, imaging, consult notes),interviewing and/or examining patient, developing and discussing treatment plan, educating patient,and documenting this encounter. Tamera Khan APRN * Celina Narayan MD - 06/14/2021 4:00 PM EST This patient was seen in conjunction with Tamera Khan APRN as part of a shared visit. I have seen the patient in person Pertinent History: Per BUTTING SAW OPERATOR note Pertinent Exam: Per BUTTING SAW OPERATOR note Major issues addressed: Per BUTTING SAW OPERATOR note Plan: Per BUTTING SAW OPERATOR note documented in this encounter Plan of Treatment Upcoming Encounters Date Type Department Care Team (Late st Contact Info) Description 03/20/2024 9:00 AM EDT TH Visit (TeleHealth) Sleep Center at [facility] [address] [place] [address] Denisse Hardwick, [facility] 03/20/2024 2:00 PM EDT Clinical Support Family Medicine at [facility] [address] [place] [address] Julia Low, [facility] 05/01/2024 11:20 AM EDT Appointment Mammography/[place] [address] Rodney Padilla MD [address] [place] [address] 05/01/2024 1:45 PM EDT Office [place] [phone] Juanpablo Hernandez MD [facility] [place] [address] 01/30/2025 1:30 PM EDT Appointment Hematology [place] [phone] 01/30/2025 3:[address] Scan at [place] [phone] Arturo Cordero MD [facility] H[place]AT[place] [address] 01/30/2025 4:15 PM EDT Office Visit Hematology [place] [phone] Arturo Cordero MD [facility] [place]EMATOLOG[place] [address] Scheduled Referrals Name Type Priority Associated Diagnoses Orde r Schedule Referral to [facility] (Primary Care Use Only) Outpatient Referral Routine Type 2 diabetes mellitus with other specified complication, without long-term current use of insulin Ordered: 06/14/2021 documented as of this encounter Procedures Procedure Name Priority Date/Time Associated Diagnosis Comments POCT FINGERSTICK GLUCOSE Routine 06/14/2021 Type 2 diabetes mellitus with other specified complication, without long-term current use of insulin POCT URINE DIPSTICK Routine 06/14/2021 Diarrhea, unspecified type documented in this encounter Results * POCT Fingerstick Glucose (06/14/2021) Glucose, POC 100 60 - 199 mg/dl Tamera Khan BUTTING SAW OPERATOR POINT OF CARE TEST O RDERABLES * POCT urine dipstick (06/14/2021) POC pH, UA 5 5.0 - 8.5 POC Leuk, UA neg Negative - Negative POC Nitrite, UA neg Negative - Negative POC Protein, UA neg Negative - Negative mg/dL POC Glucose, UA normal Normal - Normal mg/dL POC Ketone, UA neg Negative - Negative POC Blood, UA neg Negative - Negative leydi/uL Celina Narayan MD POINT OF CARE TEST ORDERABLES documented in this encounter Visit Diagnoses Diagnosis Diarrhea, unspecified type Type 2 diabetes mellitus with other specified complication, without long-term current use of insulin Tooth abscess Periapical abscess without sinus documented in this encounter Care Teams Assistant Editor Relationship Specialty Start Date End Date Luis E Narayan MD [facility] [address] [place] [address] PCP - General Family Medicine 03/26/19 01/19/22 documented as of this encounter
--- OUTSIDE RECORDS SUMMARY | 2024-03-04 21:24 | XMS_ITS | Encounter Summary ---
Author Organization [facility] Address [facility] [place] [address] Care Team Providers Care Treating Machine Operator Name Role Phone Luis E Narayan MD Primary Care Provider [phone]- [phone] Encounter Details Date Type Department Care Team (Late st Contact Info) Description 05/07/2021 Refill Family Medicine at [facility] [address] [place] [address] Luis E Narayan MD [facility] [address] [address] Social History Tobacco Use Types Packs/Day Years [...] like food, housing, medical care, and heating? Not hard at all 02/03/2021 Exercise Vital Sign Answer Date Recorde d On average, how many days pe r week do you engage in moderate to strenuous exercise (like a brisk walk)? 1 day 02/03/2021 On average, how many minutes do you engage in exercise at this level? 10 min 02/03/2021 Hunger Vital Sign Answer Date Recorded Within the past 12 months, y ou worried that your food would run out before you got the money to buy more. Never true 02/04/20 21 Within the past 12 months, t he food you bought just didn't last and you didn't have money to get more. Never true 02/03/2021 PRAPARE - Transportation Answer Date Re corded In the past 12 months, has l ack of transportation kept you from medical appointments or from getting medications? No 01/08 In the past 12 months, has l ack of transportation kept you from meetings, work, or from getting things needed for daily living? No 02/03/2021 Housing Stability Vital Sign Answer Oziel e Recorded In the last 12 months, was t here a time when you were not able to pay the mortgage or rent on time? No 02/03/2021 In the last 12 months, how many places have you lived? 1 02/03/2021 In the last 12 months, was t here a time when you did not have a steady place to sleep or slept in a detention (including now)? No 02/03/2021 Sex and Gender Information Value Date Recorded Sex Assigned at Not on file Gender Identity Not on file Sexual Orientation Not on file documented as of this encounter Miscellaneous Notes * Telephone Encounter - Laura Bourne CMA - 05/07/2021 4:06 PM EDT Prescription Refill Request Prescription(s) Requested: Requested Prescriptions Pending Prescriptions Disp Refills ??? omeprazole (PriLOSEC) 40 mg Capsule, Delayed Release(E.C.) 90 capsule 3 Sig: Take 1 capsule by mouth daily. Date of Encounter last in This Dept 02-03-21 Next Encounter in This Dept: Visit date not found Date of Last Refill ------ documented in this encounter Plan of Treatment Upcoming Encounters Date Type Department Care Team (Late st Contact Info) Description 03/20/2024 9:00 AM EDT TH Visit (TeleHealth) Sleep Center at [facility] [address] [place] [address] Denisse Hardwick, [facility] 03/20/2024 2:00 PM EDT Clinical Support Family Medicine at [facility] [address] [place] [address] Julia Low, [facility] 05/01/2024 11:20 AM EDT Appointment Mammography/DXA at [place] [phone] Rodney Padilla MD [address] [place] [address] 05/01/2024 1:45 PM EDT Office Visit Ophthalmology at [address] Juanpablo Hernandez MD [facility] [place] [address] 01/30/2025 1:30 PM EDT Appointment Hematology [place] [address] 01/30/2025 3:[address] Scan at [address] Arturo Cordero MD [facility] [place] [address] 01/30/2025 4:15 PM EDT Office Visit Hematology and Oncology at [place] [phone] Arturo Cordero MD [facility] [place] [address] documented as of this encounter Visit Diagnoses Not on filedocumented in this encounter Care Teams Treating Machine Operator Relationship Specialty Start Date End Date Luis E Narayan MD [facility] [address] [address] PCP - General Family Medicine 03/26/19 01/19/22 documented as of this encounter
--- OUTSIDE RECORDS SUMMARY | 2024-03-04 21:24 | XMS_ITS | Encounter Summary ---
Author Organization [facility] Address [facility] [place] [address] Care Team Providers Care Tea Tree Farmer Name Role Phone Luis E Narayan MD Primary Care Provider [phone]- [phone] Reason for Visit * Reason Onset Date Comments Medication Refill 06/19/2021 Encounter Details Date Type Department Care Team (Late st Contact Info) Description 06/19/2021 Refill Family Medicine at [facility] [address] [place] [address] Luis E Narayan MD [facility] [address] [place] [address] Mixed hyperlipidemia Social History Tobacco Use Types [...] [facility] [address] [place] [address] Denisse Hardwick [facility] 03/20/2024 2:00 PM EDT Clinical Support Family Medicine at [facility] [address] [place] [address] Julia Low [facility] 05/01/2024 11:20 AM EDT Appointment Mammography/[place] [phone] Rodney Padilla MD [address] [place] [address] 05/01/2024 1:45 PM EDT Office Visit Ophthalmology at [place] [address] Juanpablo Hernandez MD [facility] [place] [place] [address] 01/30/2025 1:30 PM EDT Appointment Hematology and Oncology at [place] [address] 01/30/2025 3:[address] Scan at [place] [address] Arturo Cordero MD [facility] [place] [address] 01/30/2025 4:15 PM EDT Office Visit Hematology and Oncology at [place] [address] Arturo Cordero MD [facility] [address] [place] [address] documented as of this encounter Visit Diagnoses Diagnosis Mixed hyperlipidemia documented in this encounter Care Teams Tea Tree Farmer Relationship Specialty Start Date End Date Luis E Narayan MD [facility] [address] [place] [address] PCP - General Family Medicine 03/26/19 01/19/22 documented as of this encounter
--- OUTSIDE RECORDS SUMMARY | 2024-03-04 21:24 | XMS_ITS | Encounter Summary ---
Author Organization [facility] Address [facility] [place] [address] Care Team Providers Care Farmworker Animal Name Role Phone Luis E Narayan MD Primary Care Provider [phone]- [phone] Reason for Visit * Reason Onset Date Comments Medication Refill 03/18/2021 Encounter Details Date Type Department Care Team (Late st Contact Info) Description 03/18/2021 Refill Family Medicine at [facility] [address] [place] [address] Luis E Narayan MD [facility] [address] [place] [address] Social History Tobacco Use Types Packs/Day Years [...] in a senior care (including now)? No 02/03/2021 Sex and Gender Information Value Date Recorded Sex Assigned at Not on file Gender Identity Not on file Sexual Orientation Not on file documented as of this encounter Plan of Treatment Upcoming Encounters Date Type Department Care Team (Late st Contact Info) Description 03/20/2024 9:00 AM EDT TH Visit (TeleHealth) Sleep Center at [facility] [address] [place] [address] Denisse Hardwick [facility] 03/20/2024 2:00 PM EDT Clinical Support Family Medicine at [facility] [address] [place] [phone] Julia Low RPH 05/01/2024 11:20 AM EDT Appointment Mammography/[place] [address] Rodney Padilla MD [address] [place] [address] 05/01/2024 1:45 PM EDT Office Visit Ophthalmology at [place] [address] Juanpablo Hernandez MD [facility] [place] [address] 01/30/2025 1:30 PM EDT Appointment Hematology and Oncology at [place] [address] 01/30/2025 3:[address] Scan at [place] [address] Arturo Cordero MD [facility] [place] [address] 01/30/2025 4:15 PM EDT Office Visit Hematology and Oncology at [place] [address] Arturo Cordero MD [facility] [place] [address] documented as of this encounter Visit Diagnoses Not on filedocumented in this encounter Care Teams Farmworker Animal Relationship Specialty Start Date End Date Luis E Narayan MD [facility] [address] [place] [address] PCP - General Family Medicine 03/26/19 01/19/22 documented as of this encounter
--- OUTSIDE RECORDS SUMMARY | 2024-03-04 21:24 | XMS_ITS | Encounter Summary ---
Author Organization [facility] Address [facility] [place] [address] Care Team Providers Care Merchandise Flow Team Leader Name Role Phone Luis E Narayan MD Primary Care Provider [phone]- [phone] Reason for Visit * Reason Onset Date Comments Medication Refill 01/07/2021 Encounter Details Date Type Department Care Team (Late st Contact Info) Description 01/07/2021 Refill Family Medicine at [facility] [address] [place] [address] Luis E Narayan MD [facility] [address] [place] [address] Type 2 diabetes mellitus without long-term current [...] slept in a halfway (including now)? No 09/15/2020 Sex and Gender Information Value Date Recorded Sex Assigned at Not on file Gender Identity Not on file Sexual Orientation Not on file documented as of this encounter Plan of Treatment Upcoming Encounters Date Type Department Care Team (Late st Contact Info) Description 03/20/2024 9:00 AM EDT TH Visit (TeleHealth) Sleep Center at [facility] [address] [place] [address] Denisse Hardwick [facility] 03/20/2024 2:00 PM EDT Clinical Support Family Medicine at [facility] [address] [place] [address] Julia Low [facility] 05/01/2024 11:20 AM EDT Appointment Mammography/[place] [address] Rodney Padilla MD [address] [place] [address] 05/01/2024 1:45 PM EDT Office Visit Ophthalmology at [place] [phone] Juanpablo Hernandez MD [facility] [place] [address] 01/30/2025 1:30 PM EDT Appointment Hematology and Oncology at [place] [address] 01/30/2025 3:[address] Scan at [place] [address] Arturo Cordero MD [facility] [address] [place] [address] 01/30/2025 4:15 PM EDT Office Visit Hematology and Oncology at [place] [phone] Arturo Cordero MD [facility] [place] [address] documented as of this encounter Visit Diagnoses Diagnosis Type 2 diabetes mellitus without long-term current use of insulin documented in this encounter Care Teams Merchandise Flow Team Leader Relationship Specialty Start Date End Date Luis E Narayan MD [facility] [address] [place] [address] PCP - General Family Medicine 03/26/19 01/19/22 documented as of this encounter
--- OUTSIDE RECORDS SUMMARY | 2024-03-04 21:24 | XMS_ITS | Encounter Summary ---
Author Organization Formerly [facility], Later [facility] Address [facility] [place] [address] Care Team Providers Care Wedger And Gluer Name Role Phone Luis E Narayan MD Primary Care Provider [phone] Reason for Visit * Reason Onset Date Comments Medication Refill 06/04/2021 Encounter Details Date Type Department Care Team (Late st Contact Info) Description 06/04/2021 Refill Family Medicine at [facility] [address] [place] [address] Luis E Narayan MD [facility] [address] [facility] [place] [address] Essential hypertension Social History Tobacco Use Types [...] slept in a correction (including now)? No 02/03/2021 Sex and Gender Information Value Date Recorded Sex Assigned at Not on file Gender Identity Not on file Sexual Orientation Not on file documented as of this encounter Miscellaneous Notes * Telephone Encounter - Javi Rivers CCMA - 06/04/2021 2:24 PM EST Prescription Refill Request Prescription(s) Requested: Requested Prescriptions Pending Prescriptions Disp Refills ??? amLODIPine (Norvasc) 5 mg Tablet 90 tablet 3 Sig: Take 1 tablet by mouth daily. Date of Encounter last in This Dept (If over a year and no apt scheduled send to secretaries to schedule): 05/31/2021 Next Encounter in This Dept: 06/14/2021 Date of Last Refill (for each medication): 05/07/2021 documented in this encounter Plan of Treatment Upcoming Encounters Date Type Department Care Team (Late st Contact Info) Description 03/20/2024 9:00 AM EDT TH Visit (TeleHealth) Sleep Center at [facility] [address] [place] [address] Denisse Hardwick, [facility] 03/20/2024 2:00 PM EDT Clinical Support Family Medicine at [facility] [address] [place] [address] Julia Low [facility] 05/01/2024 11:20 AM EDT Appointment Mammography/[place] [address] Rodney Padilla MD [address] [place] [address] 05/01/2024 1:45 PM EDT Office Visit Ophthalmology at [place] [phone] Juanpablo Hernandez MD [facility] [place] [address] 01/30/2025 1:30 PM EDT Appointment Hematology and Oncology at [place] [phone] 01/30/2025 3:[address] Scan at [place] [phone] Arturo Cordero MD [facility] HEMATOLOGY [place] [address] 01/30/2025 4:15 PM EDT Office Visit Hematology [place] [phone] Arturo Cordero MD [facility] HEMATOLOGY [place] [address] documented as of this encounter Visit Diagnoses Diagnosis Essential hypertension Unspecified essential hypertension documented in this encounter Care Teams Wedger And Gluer Relationship Specialty Start Date End Date Luis E Narayan MD [facility] [address] [place] [address] PCP - General Family Medicine 03/26/19 01/19/22 documented as of this encounter
--- OUTSIDE RECORDS SUMMARY | 2024-03-04 21:24 | XMS_ITS | Encounter Summary ---
Author Organization [facility] Address [facility] [place] [address] Care Team Providers Care Machine Umbrella Tipper Name Role Phone Luis E Narayan MD Primary Care Provider Reason for Visit * Reason Comments Melanoma Encounter Details Date Type Department Care Team (Late st Contact Info) Description 01/20/2021 12:45 PM EDT Office [place] [address] Juanpablo Hernandez MD [facility] [place] [address] Malignant melanoma of conjunctiva, left Social History [...] slept in a detention (including now)? No 09/15/2020 Sex and Gender Information Value Date Recorded Sex Assigned at Not on file Gender Identity Not on file Sexual Orientation Not on file documented as of this encounter Patient Instructions * Patient Instructions* Juanpablo Hernandez MD - 01/20/2021 12:45 PM EDT Medications: Use eye medications [...] Progress Notes * Juanpablo Hernandez MD - 01/20/2021 12:45 PM EDT Images from the original note were not included. Encounter Diagnosis Name Primary? Malignant melanoma of conjunctiva, left Alize Gramajo is a 60 y.o. 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 Follow for now Some PEK . Not severe but could be some early stem cell failure Keep plug in place and use chill PF AT Pre op photo Mild cataract: NIDDM with A1C of 7.8: dilate next visit Current smoker but denies orthopnea, Clear cell renal cell carcinoma Plan: - as above - Follow up 4 months or as needed - Findings and concerns discussed with Alize and she expressed understanding. -Upon Return CEE documented in this encounter Plan of Treatment Upcoming Encounters Date Type Department Care Team (Late st Contact Info) Description 03/20/2024 9:00 AM EDT TH Visit (TeleHealth) Sleep Center at [facility] [address] [place] [phone] Denisse Hardwick, [facility] 03/20/2024 2:00 PM EDT Clinical Support Family Medicine at [facility] [address] [place] [phone] Julia Low, [facility] 05/01/2024 11:20 AM EDT Appointment Mammography/[place] [address] Rodney Padilla MD [address] [place] [place] [address] 05/01/2024 1:45 PM EDT Office [place] [address] Juanpablo Hernandez MD [facility] [place] [address] 01/30/2025 1:30 PM EDT Appointment Hematology and Oncology at [place] [address] 01/30/2025 3:[address] [place] [address] Arturo Cordero MD [facility] [address] [place] [address] 01/30/2025 4:15 PM EDT Office Visit Hematology and Oncology at [place] [phone] Arturo Cordero MD [facility] [address] [place] [address] documented as of this encounter Visit Diagnoses Diagnosis Malignant melanoma of conjunctiva, left documented in this encounter Care Teams Machine Umbrella Tipper Relationship Specialty Start Date End Date Luis E Narayan MD [facility] [address] [place] [address] PCP - General Family Medicine 03/26/19 01/19/22 documented as of this encounter
--- OUTSIDE RECORDS SUMMARY | 2024-03-04 21:24 | XMS_ITS | Encounter Summary ---
Author Organization [facility] [place] [address] Care Team Providers Care Orbitread Operator Name Role Phone Luis E Narayan MD Primary Care Provider [phone]- [phone] Reason for Referral * Consultation (Routine) - Closed Specialty Diagnoses / Procedures Referred By Gonzalez kumari Referred To Contact General Surgery Diagnoses Bloating Alternating constipation and [place] [address] Torito Coon MD [address] [place] [address] Referral ID Status Reason Start Date Expiration Date V isits Requested Visits Authorized [id number] Closed Test Only 02/03/2021 08/02/2021 1 1 Reason for Visit * Reason Comments Follow-up Been significantly w orse for past 3 days. Other Wants to ask liliana canales about small hernia on CT scan in December and discuss possible IBS Encounter Details Date Type Department Care Team (Late st Contact Info) Description 02/03/2021 4:00 PM EDT Office Visit Internal Medicine at [facility] [address] [place] [address] [place] [address] Bloating; Alternating constipation and diarrhea Social History Tobacco Use Types Packs/Day Years [...] slept in a ch[facility] (including now)? No 02/03/2021 Sex and Gender Information Value Date Recorded Sex Assigned at Not on file Gender Identity Not on file Sexual Orientation Not on file documented as of this encounter Last Filed Vital Signs Vital Sign Reading Time Taken Comments Blood Pressure 138/80 02/03/2021 4:04 PM EDT Pulse 82 02/03/2021 4:04 PM EDT Temperature 36.7 ??C (98.1 ??F) 02/03/2021 4:04 PM ED T Respiratory Rate - - Oxygen Saturation 98% 02/03/2021 4:04 PM EDT Inhaled Oxygen Concentration - - Weight 113.2 kg (249 lb 9.6 oz) 02/03/2021 4:04 PM EDT Height 159 cm (5' 2.6) 02/03/2021 4:04 PM EDT Body Mass Index 44.78 02/03/2021 4:04 PM EDT documented in this encounter Patient Instructions * Patient Instructions* Bereket Latham PA - 02/03/2021 4:00 PM EDT 1. Water 2. Sugar Free Fiber supplement 3. Simethicone for gas documented in this encounter Progress Notes * Bereket Latham PA - 02/03/2021 4:00 PM EDT Subjective: Patient ID: Alize Gramajo is a 60 y.o. female. Chief Complaint Patient presents with ??? Follow-up Been significantly worse for past 3 days. ??? Other Wants to ask question about small hernia on CT scan in December and discuss possible IBS Patient Active Problem List Diagnosis Code ??? Coronary artery disease involving [place] coronary artery of [place] heart with angina pectoris I25.119 ??? Altered [...] BPPV (benign paroxysmal positional vertigo), right H81.11 HPI She has bloating in her abdomen which started on Monday night. She has some nausea and a feeling ofpressure in her abdomen. She had some diarrhea on Monday, but hasn't had anything since then. She is passing gas occasionally. No vomiting. No current abd pain. She has never had a colonoscopy. She had a CT of her abdomen pelvis in December which did not show any acute abnormalities. Review of Systems Gastrointestinal: Negative for blood in stool. No heartburn Objective: Physical Exam Vitals reviewed. Constitutional: General: She is not in acute distress. Abdominal: General: Bowel sounds are normal. There is distension. Palpations: Abdomen is soft. There is no mass. Tenderness: There is no abdominal tenderness. Neurological: Mental Status: She is alert. Patient Vitals for the past 24 hrs: Temp Pulse BP SpO2 02/03/21 1604 36.7 ??C (98.1 ??F) 82 138/80 98 % Assessment and Plan: Alize was seen today for follow-up and other. Diagnoses and all orders for this visit: Bloating Alternating constipation and diarrhea - REFERRAL TO COLONOSCOPY PROCEDURE - simethicone (Gas Relief 80, simethicone,) 80 mg Tablet, Chewable; Take 1 tablet by mouth every 6 hours as needed for Flatulence. This is a 60-year-old female who presents with bloating, with 7 history of alternating constipationand diarrhea. Her exam is normal other than abdominal distention. There is no associated tenderness. I recommended that we obtain a colonoscopy since she has not had one in the past. She would like to have this done closer to her home so a referral was given. I advised her to drink plenty of fluidsand take a fiber supplement to promote normal movement of her bowels. I also gave her a prescription for simethicone to try to help decrease gas production. Further evaluation will be based upon her response to treatment and her colonoscopy results. The total time spent on this patient encounter on the date of service was 33 minutes. documented in this encounter Plan of Treatment Upcoming Encounters Date Type Department Care Team (Late st Contact Info) Description 03/20/2024 9:00 AM EDT TH Visit (TeleHealth) Sleep Center at [facility] [address] [place] [phone] Denisse Hardwick, [facility] 03/20/2024 2:00 PM EDT Clinical Support Family Medicine at [facility] [address] [place] [phone] Julia Low, [facility] 05/01/2024 11:20 AM EDT Appointment Mammography/[place] [address] Rodney Padilla MD [address] [place] [address] 05/01/2024 1:45 PM EDT Office [place] [address] Juanpablo Hernandez MD [facility] [address] 01/30/2025 1:30 PM EDT Appointment Hematology [place] [phone] 01/30/2025 3:[address] [place] [address] Arturo Cordero MD [facility] HEMATOLOG[place] [address] 01/30/2025 4:15 PM EDT Office Visit Hematology and Oncology at [facility] [place] [address] Arturo Cordero MD [facility] [place]ATOLOG[place] [address] Scheduled Referrals Name Type Priority Associated Diagnoses Orde r Schedule REFERRAL TO COLONOSCOPY PROCEDURE Outpatient Referral Routine Bloating Alternating constipation and diarrhea Ordered: 02/03/2021 documented as of this encounter Visit Diagnoses Diagnosis Bloating Flatulence, eructation, and gas pain Alternating constipation and diarrhea Other symptoms involving digestive system documented in this encounter Care Teams Orbitread Operator Relationship Specialty Start Date End Date Luis E Narayan MD [facility] [address] [place] [address] PCP - General Family Medicine 03/26/19 01/19/22 documented as of this encounter
--- OUTSIDE RECORDS SUMMARY | 2024-03-04 21:24 | XMS_ITS | Encounter Summary ---
Author Organization [facility] [place] [address] Care Team Providers Care Straightedge Man Name Role Phone Luis E Narayan MD Primary Care Provider [phone]- [phone] Encounter Details Date Type Department Care Team (Latest Contact Info) Description 12/17/2020 12:29 PM EDT - 12/17/2020 11:59 PM EDT Hospital Encounter [place]ematology [place] [address] Malignant melanoma of conjunctiva, left Discharge Disposition: [...] in a skilled nursing (including now)? No 09/15/2020 Sex and Gender [...] (E.C.) Take 81 mg by mouth daily. FreeStyle Sanjana 2 [place] MiscIndications:diabete s mellitus 1 each by Other route daily. Indications: diabetes mellitus 1 each 12/10/2020 10/26/2021 FreeStyle Sanjana 2 Sensor KitIndications:diabetes mellitus 1 each by Other route daily. Indications: diabetes mellitus 6 kit 3 12/10/2020 10/26/2021 cyclobenzaprine (Flexeril) 5 mg TabletIndications:Chron ic bilateral low back pain without sciatica Take 1 tablet by mouth 3 times daily as needed for Muscle spasms. 21 tablet 11/03/2020 06/14/2021 albuteroL (Proventil HFA) 90 mcg/actuation HFA Aerosol InhalerIndications:Simp le chronic bronchitis Inhale 2 puffs into the lungs every 4 hours as needed for wheeze. Use with spacer 1 Inhaler 11 10/09/2020 12/10/2021 inhalational spacing device SpacerIndications:Simpl e chronic bronchitis For use with albuterol inhaler every 4 hours as needed for wheeze. 1 each 10/09/2020 06/14/2021 fluorometholone (FML Forte) 0.25 % Drops, Suspension Place 1 drop into the left eye 3 times daily. 10 mL 3 09/30/2020 06/14/2021 metoprolol succinate XL (Toprol XL) 25 mg Tablet Sustained Release 24 hr Take 1 tablet by mouth daily. 90 tablet 1 09/15/2020 03/18/2021 clopidogreL (Plavix) 75 mg Tablet Take 1 tablet by mouth daily. Restart post-operatively on 07/05 90 tablet 1 09/15/2020 03/18/2021 loratadine (Claritin) 10 mg Tablet Take 1 tablet by mouth daily. 90 tablet 1 09/15/2020 03/18/2021 nicotine (NICODERM CQ) 21 mg/24 hr Patch 24 hr Change 1 patch on the skin every 24 hours. 06/14/2021 nicotine polacrilex (NICORETTE) 2 mg Gum Take 2 mg by mouth as needed. 06/14/2021 polyethylene glycoL (Miralax) 17 gram Powder in PacketIndications:Const ipation, unspecified constipation type Take 17 g by mouth daily. 14 each 09/15/2020 09/19/2023 fluticasone propionate (FLONASE) 50 mcg/actuation [place], Suspension 1 spray by Each Nare route 2 times daily. 16 g 11 08/04/2020 09/07/2021 metFORMIN (GLUCOPHAGE) 1,000 mg TabletIndications:Type 2 diabetes mellitus with hyperglycemia, without long-term current use of insulin Take 1 tablet by mouth 2 times daily (with meals). 180 tablet 1 07/28/2020 01/07/2021 nicotine (NICOTROL) 10 mg CartridgeIndications:En counter for smoking cessation counseling Inhale 1 puff into the lungs as needed for Smoking cessation. 168 each 3 06/29/2020 06/14/2021 simvastatin (Zocor) 10 mg TabletIndications:Mixed hyperlipidemia Take 1 tablet by mouth daily. 90 tablet 3 06/23/2020 06/19/2021 amLODIPine (Norvasc) 5 mg TabletIndications:Essen tial hypertension Take 1 tablet by mouth daily. 90 tablet 3 05/26/2020 05/05/2021 omeprazole 20 mg Tablet, Delayed Release (E.C.) Take 1 tablet by mouth daily. 90 tablet 3 05/26/2020 03/31/2021 LORazepam (Ativan) 1 mg Tablet Take 1 mg by mouth every evening. 04/19/2022 busPIRone (Buspar) 10 mg Tablet Take 20 mg by mouth 2 times daily. 04/19/2022 losartan (Cozaar) 100 mg Tablet Take 1 tablet by mouth daily. 90 tablet 3 04/29/2020 03/30/2021 budesonide-formoteroL (SYMBICORT) 80-4.5 mcg/actuation HFA Aerosol Inhaler Inhale 2 puffs into the lungs 2 times daily. 1 Inhaler 11 04/20/2020 05/26/2021 lamoTRIgine (LaMICtal) 100 mg TabletIndications:Bipol ar affective disorder in remission Take 1 tablet by mouth daily. 90 tablet 3 08/05/2019 06/20/2023 lancets Misc Use for twice daily testing 100 each 11 08/05/2019 06/14/2021 blood sugar diagnostic strips Strip Use as instructed 100 each 12 08/05/2019 06/14/2021 Blood-Glucose Meter Misc Use twice daily 1 each 08/05/2019 06/14/2021 nicotine (NICODERM CQ) 21 mg/[address] 1 patch onto the skin daily as needed. 30 patch 11 06/13/2019 06/14/2021 nitroGLYcerin (NITROSTAT) 0.4 mg Tablet, Sublingual Place 1 tablet under the tongue See Admin Instructions. 30 tablet 04/09/2019 07/05/2021 documented as of this encounter Plan of Treatment Upcoming Encounters Date Type Department Care Team (Late st Contact Info) Description 03/20/2024 9:00 AM EDT TH Visit (TeleHealth) Sleep Center at [facility] [address] [place] [phone] Denisse Hardwick, [facility] 03/20/2024 2:00 PM EDT Clinical Support Family Medicine at [facility] [address] [place] [address] Julia Low, [facility] 05/01/2024 11:20 AM EDT Appointment Mammography/DXA at [place] [address] Rodney Padilla MD [address] [place] [address] 05/01/2024 1:45 PM EDT Office Visit Ophthalmology at [place] [address] Juanpablo Hernandez MD [facility] [place] [address] 01/30/2025 1:30 PM EDT Appointment Hematology and Oncology at [place] [address] 01/30/2025 3:[address] Scan at [address] Arturo Cordero MD [facility] [address] [place] [address] 01/30/2025 4:15 PM EDT Office Visit Hematology and Oncology at [place] [phone] Arturo Cordero MD [facility] [address] [place] [address] Scheduled Orders Name Type Priority Associated Diagnoses Orde r Schedule Lactate Dehydrogenase Lab Routine Malignant melanoma of conjunctiva, left 1 Occurrences starting 12/17/2020 until 12/17/2020 Comprehensive metabolic panel (non-fasting) Lab Routine Malignant melanoma of conjunctiva, left 1 Occurrences starting 12/17/2020 until 12/17/2020 CBC (with Diff) Lab Routine Malignant melanoma of conjunctiva, left 1 Occurrences starting 12/17/2020 until 12/17/2020 documented as of this encounter Procedures Procedure Name Priority Date/Time Associated Diagnosis Comments SCAN, PERIPHERAL BLOOD STAT 12:45 PM EDT HEMOGRAM STAT 12/17/2020 12:45 PM EDT Malignant melanoma of conjunctiva, left DIFFERENTIAL, AUTOMATED STAT 12/17/2020 12:45 PM EDT Malignant melanoma of conjunctiva, left HC CBC,PLT & AUTO DIFF STAT 12:45 PM EDT Malignant melanoma of conjunctiva, left HC LACTIC DEHYDROGENASE STAT 12/17/2020 12:45 PM EDT Malignant melanoma of conjunctiva, left COMPREHENSIVE METABOLIC PANEL STAT 12/17/2020 12:45 PM EDT Malignant melanoma of conjunctiva, left documented in this encounter Results * Scan, Peripheral Blood (12/17/2020 12:45 PM EDT) [facility] Normal [facility] RBC Morphology Normal [facility] Blood 12/17/2020 12:4 5 PM EDT 12/17/2020 12:51 PM EDT Narrative Resulting Agency Comment Spec In Lab Arturo Cordero MD HEMATOLOGY ORDERABLE S [facility] [place] [address] * Differential, Automated (12/17/2020 12:45 PM EDT) [facility] Neutrophil % 58.0 % [facility] Neutrophil Absolute 3.91 1.70 - 6.10 x10(3)/[facility] Lymph % 29.9 % [facility] Lymphocytes Abs 2.0 0.9 - 3.2 x10(3)/[facility] Monocyte % 9.2 % [facility] Monocyte Abs 0.6 0.3 - 0.9 x10(3)/[facility] Eos % 1.9 % [facility] Eosinophils Abs 0.1 0.0 - 0.4 x10(3)/[facility] Basophil % 0.9 % [facility] Baso Absolute 0.1 0.0 - 0.1 x10(3)/[facility] Immature Gran % 0.10 % [facility] Comment: Immature granulocytes(IG's)percentage and absolute count will include metamyelocytes, myelocytes, and promyelocytes. Blood smears from CBCs yielding IG's will be scanned manually for concordance. If this scan disagrees with the automated IG or if promyelocytes are noted, a manual differential will be performed. Immature Gran Absolute 0.01 0.00 - 0.04 x10(3)/[facility] Blood 12/17/2020 12:4 5 PM EDT 12/17/2020 12:51 PM EDT Narrative Resulting Agency Comment Spec In Lab Arturo Cordero MD HEMATOLOGY ORDERABLE S [facility] [place] [address] * (ABNORMAL) Hemogram (12/17/2020 12:45 PM EDT) White Blood Cell 6.8 4.0 - 9.5 x10(3)/ L [facility] Red Blood Cell 4.44 4.00 - 5.21 x10(6)/ L [facility] Hemoglobin 12.8 11.7 - 15.5 gm/dL [facility] Hematocrit 38.3 35.7 - 45.8 % [facility] Mean Cell Volume 86.3 82.6 - 94.4 fL [facility] Mean Cell Hemoglobin 28.8 27.1 - 32.0 pg [facility] Mean Cell Hemoglobin Concentration 33.4 31.7 - 35.0 gm/dL [facility] Platelet 351 145 - 357 x10(3)/mc L [facility] RDW Standard Deviation 45.1 37.0 - 46.0 fL [facility] RDW coefficient of variation 14.2(H) 11.5 - 14.1 % [facility] Mean Platelet Volume 9.6 7.6 - 12.9 fL [facility] NRBC% auto 0.0 % [facility] NRBC Absolute 0.000 0.000 - 0.000 x10(3)/mc L [facility] Blood 12/17/2020 12:4 5 PM EDT 12/17/2020 12:51 PM EDT Narrative Resulting Agency Comment Spec In Lab Arturo Cordero MD HEMATOLOGY ORDERABLE S [facility] [place] [address] * (ABNORMAL) Comprehensive metabolic panel (non-fasting) (12/17/2020 12:45 PM EDT) Glucose 220(H) 65 - 199 mg/dL [facility] Comment:Diabetes: >=200 mg/d L plus symptoms Blood Urea Nitrogen 15 8 - 18 mg/dL [facility] Creatinine 0.94 0.70 - 1.20 mg/dL [facility] Sodium 139 135 - 145 mmol/L [facility] Potassium 4.2 3.5 - 5.0 mmol/L [facility] Comment: Please note: ??Patients with WBC >100,000 may have falsely elevated Potassium levels. ??For accurate Potassium quantification in these patients send serum separator tube (gold top) for subsequent determinations. ??Contact the Clinical Chemistry Laboratory if there are any questions. Chloride 104 98 - 107 mmol/L [facility] Carbon Dioxide 26 22 - 31 mmol/L [facility] Anion Gap 9 5 - 15 mmol/L [facility] Calcium 9.5 8.5 - 10.5 mg/dL [facility] Protein, Total 6.7 6.1 - 8.0 gm/dL [facility] Albumin 4.2 3.2 - 5.2 gm/dL [facility] Aspartate Aminotransferase 21 0 - 30 unit/L [facility] Alanine Aminotransferase 24 0 - 30 unit/L [facility] Alkaline Phosphatase 97 35 - 105 unit/L [facility] Bilirubin, Total 0.5 0.2 - 1.3 mg/dL [facility] Est Glomerular Filtration Rate 65 >=60 mL/min/1. 73 m?? [facility] Comment: This patient? s estimated glomerular filtration rate (eGFR) is between 65 mL/min/1.73 m2 (patients with less muscle mass) and 76 mL/min/1.73 m2 (patients with more muscle mass) [...] and symptoms in addition to eGFR. Blood 12/17/2020 12:4 5 PM EDT 12/17/2020 12:51 PM EDT Narrative Resulting Agency Comment Spec In Lab Arturo Cordero MD CHEMISTRY ORDERABLES [facility] [place] [address] * Lactate Dehydrogenase (12/17/2020 12:45 PM EDT) Lactate Dehydrogenase 205 110 - 220 unit/L [facility] Blood 12/17/2020 12:4 5 PM EDT 12/17/2020 12:51 PM EDT Narrative Resulting Agency Comment Spec In Lab Arturo Cordero MD CHEMISTRY ORDERABLES [facility] [place] [address] documented in this encounter Visit Diagnoses Diagnosis Malignant melanoma of conjunctiva, left documented in this encounter Care Teams Straightedge Man Relationship Specialty Start Date End Date Luis E Narayan MD [facility] [address] [place] [address] PCP - General Family Medicine 03/26/19 01/19/22 documented as of this encounter
--- OUTSIDE RECORDS SUMMARY | 2024-03-04 21:24 | XMS_ITS | Encounter Summary ---
Author Organization [facility] Address [facility] [place] [address] Care Team Providers Care Compliance Representative Dealer Name Role Phone Luis E Narayan MD Primary Care Provider [phone]- [phone] Reason for Visit * Reason Onset Date Comments Medication Refill 03/30/2021 Encounter Details Date Type Department Care Team (Late st Contact Info) Description 03/30/2021 Refill Family Medicine at [facility] [address] [place] [address] Luis E Narayan MD [facility] [address] [place] [address] Social History Tobacco Use Types Packs/Day Years [...] slept in a fdc (including now)? No 02/03/2021 Sex and Gender Information Value Date Recorded Sex Assigned at Not on file Gender Identity Not on file Sexual Orientation Not on file documented as of this encounter Plan of Treatment Upcoming Encounters Date Type Department Care Team (Late st Contact Info) Description 03/20/2024 9:00 AM EDT TH Visit (TeleHealth) Sleep Center at [facility] [address] [place] [phone] Denisse Hardwick [facility] 03/20/2024 2:00 PM EDT Clinical Support Family Medicine at [facility] [address] [place] [phone] Julia Low RPH 05/01/2024 11:20 AM EDT Appointment Mammography/[place] [address] Rodney Padilla MD [address] [place] [address] 05/01/2024 1:45 PM EDT Office Visit Ophthalmology at [place] [address] Juanpablo Hernandez MD [facility] [place] [address] 01/30/2025 1:30 PM EDT Appointment Hematology and Oncology at [place] [address] 01/30/2025 3:[address] Scan at [place] [address] Arturo Cordero MD [facility] [place] [address] 01/30/2025 4:15 PM EDT Office Visit Hematology and Oncology at [place] [address] Arturo Cordero MD [facility] [place] [address] documented as of this encounter Visit Diagnoses Not on filedocumented in this encounter Care Teams Compliance Representative Dealer Relationship Specialty Start Date End Date Luis E Narayan MD [facility] [address] [place] [address] PCP - General Family Medicine 03/26/19 01/19/22 documented as of this encounter
--- OUTSIDE RECORDS SUMMARY | 2024-03-04 21:24 | XMS_ITS | Encounter Summary ---
Author Organization [facility] [place] [address] Care Team Providers Care Weblogic Developer Name Role Phone Luis E Narayan MD Primary Care Provider Encounter Details Date Type Department Care Team (Late st Contact Info) Description 06/22/2021 Telephone Internal Medicine at [facility] [address] [place] [phone] Shea Rodas Social History Tobacco Use Types Packs/Day Years [...] encounter Miscellaneous Notes * Telephone Encounter - Shea Rodas - 06/22/2021 9:35 AM EST LVM to call us back Looking to book an star't based off a referral for Julia Low (Pharmacist). Sending letter, tried calling twice. documented in this encounter Plan of Treatment Upcoming Encounters Date Type Department Care Team (Late st Contact Info) Description 03/20/2024 9:00 AM EDT TH Visit (TeleHealth) Sleep Center at [facility] [address] [place] [address] Denisse Hardwick, [facility] 03/20/2024 2:00 PM EDT Clinical Support Family Medicine at [facility] [address] [place] [address] Julia Low [facility] 05/01/2024 11:20 AM EDT Appointment Mammography/[place] [address] Rodney Padilla MD [address] [place] [address] 05/01/2024 1:45 PM EDT Office Visit Ophthalmology at [place] [phone] Juanpablo Hernandez MD [facility] [place] [address] 01/30/2025 1:30 PM EDT Appointment Hematology and Oncology at [place] [address] 01/30/2025 3:[address] Scan at [place] [address] Arturo Cordero MD [facility] DR HEMATOLOG[place] [address] 01/30/2025 4:15 PM EDT Office Visit Hematology and Oncology at [place] [phone] Arturo Cordero MD [facility] DR HEMATOLOGY [place] [address] documented as of this encounter Visit Diagnoses Not on filedocumented in this encounter Care Teams Weblogic Developer Relationship Specialty Start Date End Date Luis E Narayan MD [facility] [address] [address] PCP - General Family Medicine 03/26/19 01/19/22 documented as of this encounter
--- OUTSIDE RECORDS SUMMARY | 2024-03-04 21:24 | XMS_ITS | Encounter Summary ---
[place] [address] Care Team Providers Care General Manager [employer] Name Role Phone Luis E Narayan MD Primary Care Provider [phone]- [phone] Encounter Details Date Type Department Care Team (Late st Contact Info) Description 02/04/2021 Telephone [place] [address] Malika Ye Social History Tobacco Use Types Packs/Day Years [...] slept in a fci (including now)? No 02/03/2021 Sex and Gender Information Value Date Recorded Sex Assigned at Not on file Gender Identity Not on file Sexual Orientation Not on file documented as of this encounter Miscellaneous Notes * Telephone Encounter - Malika eY - 02/04/2021 10:21 AM EDT Alize stated she has not used nicotine patches and has not committed to quitting. I offered to help when she is interested in trying the patch. She is living with someone who also smokes and stated they both have the tools they need but have not made any attempts. She stated she appreciates my offer of assistance and will call if they decide to start the process. documented in this encounter Plan of Treatment Upcoming Encounters Date Type Department Care Team (Late st Contact Info) Description 03/20/2024 9:00 AM EDT TH Visit (TeleHealth) Sleep Center at [facility] [address] [place] [phone] Denisse Hardwick, [facility] 03/20/2024 2:00 PM EDT Clinical Support Family Medicine at [facility] [address] [place] [address] Julia Low [facility] 05/01/2024 11:20 AM EDT Appointment Mammography/DXA at [place] [phone] Rodney Padilla MD [address] [place] [address] 05/01/2024 1:45 PM EDT Office Visit Ophthalmology at [place] [address] Juanpablo Hernandez MD [facility] [place] [address] 01/30/2025 1:30 PM EDT Appointment Hematology and Oncology at [place] [address] 01/30/2025 3:[address] Scan at [place] [address] Arturo Cordero MD [facility] DR HEMATOLOGY [place] [address] 01/30/2025 4:15 PM EDT Office Visit Hematology and Oncology at [place] [address] Arturo Cordero MD [facility] DR HEMATOLOGY [place] [address] documented as of this encounter Visit Diagnoses Not on filedocumented in this encounter Care Teams General Manager [employer] Relationship Specialty Start Date End Date Luis E Naaryan MD [facility] [address] PCP - General Family Medicine 03/26/19 01/19/22 documented as of this encounter
--- OUTSIDE RECORDS SUMMARY | 2024-03-04 21:24 | XMS_ITS | Encounter Summary ---
[place] [address] Care Team Providers Care Traffic Inspector Name Role Phone Luis E Narayan MD Primary Care Provider Reason for Referral * Consultation (Routine) - Closed Specialty Diagnoses / Procedures Referred By Gonzalez kumari Referred To Contact Gastroenterology Diagnoses Nonalcoholic hepatosteatosis fatty liver disease Janessa Davies APRN [facility] [place] [address] [facility] [place] [address] Referral ID Status Reason Start Date Expiration Date V isits Requested Visits Authorized [id number] Closed Assume Subset of Care 05/31/2021 05/31/2022 1 1 * Physical Therapy (Routine) - Closed Specialty Diagnoses / Procedures Referred By Contchrissy kumari Referred To Contact Physical Therapy Diagnoses Right leg pain Janessa Davies APRN [facility] [place] [address] Physical Therapy, [address] [address] Referral ID Status Reason Start Date Expiration Date V isits Requested Visits Authorized [id number] Closed Evaluate and Treat 05/31/2021 11/27/2021 10 10 Reason for Visit * Reason Comments Right Leg Pain Referral Gastro for GERD, Gas tritis and fatty liver diease Other blood work Immunizations influenza vaccine Encounter Details Date Type Department Care Team (Latest Contact Info) Description 05/31/2021 4:00 PM EST Office Visit Family Medicine at [facility] [address] [place] [phone] Norman Ochoa Jr., MD [facility] [place] [address] Healthcare maintenance; Type 2 diabetes mellitus with hyperglycemia, without long-term current use of insulin; Chest pain, unspecified type; Right upper quadrant pain; Right leg pain; Nonalcoholic hepatosteatosis Social History Tobacco Use Types Packs/Day Years [...] slept in a usp (including now)? No 02/03/2021 Sex and Gender Information Value Date Recorded Sex Assigned at Not on file Gender Identity Not on file Sexual Orientation Not on file documented as of this encounter Last Filed Vital Signs Vital Sign Reading Time Taken Comments Blood Pressure 128/80 05/31/2021 3:50 PM EST Pulse 86 05/31/2021 3:50 PM EST Temperature 36.5 ??C (97.7 ??F) 05/31/2021 3:50 PM ES T Respiratory Rate 18 05/31/2021 3:50 PM EST Oxygen Saturation 97% 05/31/2021 3:50 PM EST Inhaled Oxygen Concentration - - Weight 110.7 kg (244 lb) 05/31/2021 3:50 PM EST Height 159 cm (5' 2.6) 05/31/2021 3:50 PM EST Body Mass Index 43.78 05/31/2021 3:50 PM EST documented in this encounter Progress Notes * Janessa Davies, SWIMMING POOL SERVICEPERSON - 05/31/2021 4:00 PM EST Subjective: Patient ID: Patience Manjarrez is a 60 y.o. female. Presenting with abdominal pain and multiple requests. Chief Complaint Patient presents with ??? Right Leg Pain ??? Referral Gastro for GERD, Gastritis and fatty liver diease ??? Other blood work ??? Immunizations influenza vaccine Had colonoscopy, and EGD, in [facility] - Dr. Hart still having issues with increasing bloating, epigastric pain which are notably worse with eating fatty food. Notes that stools are more odorous and occasionally soft during these flares. Has diagnosis of fatty liver, wants GI referral so she can be followed by them for this. Has right leg pain, was gardening a few months ago and was getting up off the ground when she felt the back of her leg pull wants evaluation of this. Additionallystates leaving partner who she caught cheating on her via phone, daughter and previous ex are supporting her through this, feels these relationships are good. No fevers, chills, infectious sym ptoms, shortness of breath. Requesting A1c check as well. Review of Systems As above Objective: BP 128/80 (BP Location (NBP): Left arm, Patient Position: Sitting, BP Cuff Sizes: Large Adult (32-43 cm)) Pulse 86 Temp 36.5 ??C (97.7 ??F) (Temporal) Resp 18 Ht 159 cm (5' 2.6) Wt 110.7 kg (244 lb) SpO2 97% BMI 43.78 kg/m?? Patient reported measures: Pain:6 Physical Health:Good Physical Exam Constitutional: General: She is not in acute distress. Appearance: Normal appearance. She is normal weight. Cardiovascular: Rate and Rhythm: Normal rate and regular rhythm. Pulses: Normal pulses. Heart sounds: Murmur heard. Pulmonary: Effort: Pulmonary effort is normal. No respiratory distress. Breath sounds: Normal breath sounds. Abdominal: General: Abdomen is protuberant. Bowel sounds are normal. There is distension. There are no signs of injury. Palpations: Abdomen is soft. There is no shifting dullness, fluid wave, hepatomegaly, splenomegaly or mass. Tenderness: There is abdominal tenderness in the right upper quadrant and epigastric area. Musculoskeletal: General: No swelling or tenderness. Normal range of motion. Cervical back: Normal range of motion. Skin: General: Skin is warm and dry. Capillary Refill: Capillary refill takes less than 2 seconds. Neurological: General: No focal deficit present. Mental Status: She is alert and oriented to person, place, and time. Psychiatric: Mood and Affect: Mood normal. Thought Content: Thought content normal. EKG- NSR rate 68, no ST elevations or changes compared to previous. Assessment and Plan: Patience was seen today for right leg pain, referral, other and immunizations. Diagnoses and all orders for this visit: Healthcare maintenance - FluLaval Quadrivalent vaccine, Preservative Free 6MOS+ Type 2 diabetes mellitus with hyperglycemia, without long-term current use of insulin - Hemoglobin A1c; Future; Expected date: 05/31/2021 - Cancel: U Albumin/Cre Ratio; Future; Expected date: 05/31/2021 Chest pain, unspecified type - EKG 12 Lead Right upper quadrant pain - US Abdomen Limited; Future; Expected date: 05/31/2021 - Comprehensive metabolic panel (non-fasting); Future; Expected date: 05/31/2021 - Lipase; Future; Expected date: 05/31/2021 - CBC (with Diff); Future; Expected date: 05/31/2021 Right leg pain - Referral to Physical Therapy Nonalcoholic hepatosteatosis - Referral to Gastroenterology Follow up post imaging, PRN with PCP. Janessa Davies APRN * Norman Ochoa Jr., MD - 05/31/2021 4:00 PM EST Subjective: Ms. Manjarrez is a 60 y.o. who comes in for epigastric pain, right leg pain, and and multiple medical issues. Most bothersome is upper epigastric discomfort and abdominal bloating. Has some GERD symptoms. Says chest involvement does not feel at all like cardiac one she has had in the past. Pain along the right hamstring. Still cigarette smoking. Objective: Appears well. BP 128/80 (BP Location (NBP): Left arm, Patient Position: Sitting, BP CuffSizes: Large Adult (32-43 cm)) Pulse 86 Temp 36.5 ??C (97.7 ??F) (Temporal) Resp 18 Ht 159 cm (5' 2.6) Wt 110.7 kg (244 lb) SpO2 97% BMI 43.78 kg/m??. Lungs clear. Heart regular rate rhythm. Soft grade I systolic murmur without radiation. No S3 or S4 heard. Abdomen is soft without hepatosplenomegaly. No masses felt. Area of reported discomfort is in the epigastrium (and slightly tothe right of the epigastrium ) and some tenderness with palpation of the distal sternum. No bony abnormality palpated. Xiphisternum is angled anteriorly. Negative Titus's. Extremities negative C/C/E. Hamstring tenderness distally at medial knee. Yellow fingernails. Skin without jaundice. Twelve-lead EKG: Normal sinus rhythm. Nonspecific T wave abnormality. Abnormal ECG. When compared with ECG of 11-SEP-2020 14:20, No significant change was found Assessment: 1. Atypical chest pain in terms of cardiac origin. Most likely secondary to GERD. Also has some chest wall tenderness. 2. Hamstring strain, R. 3. Fatty liver infiltration. Plan: Findings reviewed. Differential discussed. Some focus placed on a cigarette habit; counseled regarding cigarette smoking. Will consider stopping. Advice provided. Referral to PT. Would like to see GI regarding fatty liver disease. Imaging and lab work Voice-activated software commonly has unintentional recep errors, especially incorrect pronouns, verb tense, and typographical mistakes. 45 minutes: Chart review, [id number], coordination of care, and documentation. documented in this encounter Plan of Treatment Upcoming Encounters Date Type Department Care Team (Late st Contact Info) Description 03/20/2024 9:00 AM EDT TH Visit (TeleHealth) Sleep Center at [facility] [address] [place] [phone] Denisse Hardwick, [facility] [facility] 03/20/2024 2:00 PM EDT Clinical Support Family Medicine at [facility] [address] [place] [phone] [facility] 05/01/2024 11:20 AM EDT Appointment Mammography/[place] [address] Rodney Padilla MD [address] [place] [address] 05/01/2024 1:45 PM EDT [place] [address] Juanpablo Hernandez MD [facility] [place] [address] 01/30/2025 1:30 PM EDT Appointment Hematology and Oncology at [place] [address] 01/30/2025 3:[address] [place] [phone] Arturo Cordero MD [facility] [place] [address] 01/30/2025 4:15 PM EDT Office Visit [place] [address] Arturo Cordero MD [facility] [place] [address] Scheduled Referrals Name Type Priority Associated Diagnoses Orde r Schedule Referral to Physical Therapy Outpatient Referral Routine Right leg pain Ordered: 05/31/2021 Referral to Gastroenterology Outpatient Referral Routine Nonalcoholic hepatosteatosis Ordered: 05/31/2021 documented as of this encounter Procedures Procedure Name Priority Date/Time Associated Diagnosis Comments HEMOGRAM Routine 05/31/2021 5:57 PM EST Right upper quadrant pain DIFFERENTIAL, AUTOMATED Routine 05/31/2021 5:57 PM EST Right upper quadrant pain HC CBC,PLT & AUTO DIFF Routine 5:57 PM EST Right upper quadrant pain HC LIPASE Routine 05/31/2021 5:57 PM EST Right upper quadrant pain HC HEMOGLOBIN A1C Routine 05/31/2021 5:5 7 PM EST Type 2 diabetes mellitus with hyperglycemia, without long-term current use of insulin COMPREHENSIVE METABOLIC PANEL Routine 05/31/2021 5:57 PM EST Right upper quadrant pain EKG 12-LEAD Routine 05/31/2021 5:16 PM EST Chest pain, unspecified type documented in this encounter Results * US Abdomen Limited (06/08/2021 10:59 AM EST) Anatomical Region Laterality Modality Abdomen Ultrasound 06/08/2021 11:0 0 AM EST Impressions 06/08/2021 12:09 PM EST 1. ??Normal gallbladder. Specifically, no cholelithiasis. No biliary ductal dilatation. 2. ??Stable mild hepatomegaly with known hepatic steatosis, small areas of focal fatty sparing noted adjacent to the gallbladder. No sonographically evident hepatic mass. 3. ??Normal right kidney. 4. ??Limited evaluation of the pancreas. Thank you for letting us participate in the care of this patient. If you are a health care provider and have any questions regarding this report, please contact the number above. For patients who have questions, please contact the health complex care nurse practitioner that requested your imaging first. ? Nakia Goetz, Staff Physician Electronically Signed Final Report ?? 06/08/2021 12:08 pm Narrative 06/08/2021 12:09 PM EST Abdominal ? (Signed Final 06/08/2021 12:08 pm) PATIENT INFO: ID #: ? [id number] ?: ??[birth year] (60 yrs)(F) Name: ? PATIENCE MANJARREZ ? Visit Date: 06/08/2021 11:00 am PERFORMED BY: Performed By: ? Vaughn Marcial RDMS Attending: ?Sofy COLVIN, Nakia Andrade Referred By: ?JANESSA DAVIES Location: ? [place] SERVICE(S) PROVIDED: UABDLIM - Abdominal Limited Survey Single ? [id number] Organ or Quadrant - [id number] INDICATIONS: RUQ pain, postprandial with fats COMPARISON: CT Abdomen/Pelvis 02/11/21 ------ LIVER: ------ Right Lobe Length: ?? 18.9 ?? cm Echogenicity/Echotexture: ?? Diffuse increased echogenicity with ? focal sparing adjacent to gallbladder Comment: ?No focal lesion seen. Hepatomegaly.. GALLBLADDER: Cholelithiasis: ?No stones visualized Wall Thickness: ?Normal wall thickness Focal Tenderness: ?Negative sonographic Titus's sign BILIARY TRACT: Intrahepatic Ducts: ?? Normal Extrahepatic Ducts: ?? Normal where seen Common Duct Size: ? 5.0 ? mm --------- PANCREAS: --------- Head: ?Limited visualization due to ?Size: ?overlying bowel Tail: ?Limited visualization due to ?Size: ?overlying bowel Body: ?Normal ?Size: RIGHT KIDNEY: Size (cm) ?L: ??11.8 Cortical Thickness: ?Normal Cortical Echogenicity: ?? Normal Hydronephrosis: ?No sonographic evidence ------ AORTA: ------ Measurements (cm): Proximal ? AP: ?? 2.7 Comment: ?Normal in caliber where visualized. ---- IVC: ---- Normal in caliber where visualized. FLUID COLLECTIONS: No ascites in the imaged RUQ & RLQ. Procedure Note Nakia Goetz MD - 06/08/2021 Abdominal (Signed Final 06/08/2021 12:08 pm) PATIENT INFO: ID #: [id number] : 58 (60 yrs)(F) Name: PATIENCE MANJARREZ Visit Date: 06/08/2021 11:00 am PERFORMED BY: Performed By: Vaughn Marcial RDMS Attending: Nakia Goetz MD Referred By: JANESSA DAVIES Location: [place] SERVICE(S) PROVIDED: UABDLIM - Abdominal Limited Survey Single [id number] Organ or Quadrant - [id number] INDICATIONS: RUQ pain, postprandial with fats COMPARISON: CT Abdomen/Pelvis 02/11/21 ------ LIVER: ------ Right Lobe Length: 18.9 cm Echogenicity/Echotexture: Diffuse increased echogenicity with focal sparing adjacent to gallbladder Comment: No focal lesion seen. Hepatomegaly.. GALLBLADDER: Cholelithiasis: No stones visualized Wall Thickness: Normal wall thickness Focal Tenderness: Negative sonographic Titus's sign BILIARY TRACT: Intrahepatic Ducts: Normal Extrahepatic Ducts: Normal where seen Common Duct Size: 5.0 mm --------- PANCREAS: --------- Head: Limited visualization due to Size: overlying bowel Tail: Limited visualization due to Size: overlying bowel Body: Normal Size: RIGHT KIDNEY: Size (cm) L: 11.8 Cortical Thickness: Normal Cortical Echogenicity: Normal Hydronephrosis: No sonographic evidence ------ AORTA: ------ Measurements (cm): Proximal AP: 2.7 Comment: Normal in caliber where visualized. ---- IVC: ---- Normal in caliber where visualized. FLUID COLLECTIONS: No ascites in the imaged RUQ & RLQ. IMPRESSION 1. Normal gallbladder. Specifically, no cholelithiasis. No biliary ductal dilatation. 2. Stable mild hepatomegaly with known hepatic steatosis, small areas of focal fatty sparing noted adjacent to the gallbladder. No sonographically evident hepatic mass. 3. Normal right kidney. 4. Limited evaluation of the pancreas. Thank you for letting us participate in the care of this patient. If you are a health care provider and have any questions regarding this report, please contact the number above. For patients who have questions, please contact the health complex care nurse practitioner that requested your imaging first. Nakia Goetz, Staff Physician Electronically Signed Final Report 06/08/2021 12:08 pm Janessa Davies SWIMMING POOL SERVICEPERSON IMG US GEN ORDERABLE S * Differential, Automated (05/31/2021 5:57 PM EST) Neutrophil % 56.6 % [facility] Neutrophil Absolute 5.46 1.70 - 6.10 x10(3)/[facility] Lymph % 33.5 % [facility] Lymphocytes Abs 3.2 0.9 - 3.2 x10(3)/[facility] Monocyte % 7.9 % [facility] Monocyte Abs 0.8 0.3 - 0.9 x10(3)/[facility] Eos % 1.2 % [facility] Eosinophils Abs 0.1 0.0 - 0.4 x10(3)/[facility] Basophil % 0.5 % [facility] Baso Absolute 0.0 0.0 - 0.1 x10(3)/[facility] Immature Gran % 0.30 % [facility] Comment: Immature granulocytes(IG's)percentage and absolute count will include metamyelocytes, myelocytes, and promyelocytes. Blood smears from CBCs yielding IG's will be scanned manually for concordance. If this scan disagrees with the automated IG or if promyelocytes are noted, a manual differential will be performed. Immature Gran Absolute 0.03 0.00 - 0.04 x10(3)/mcL [facility] Blood 05/31/2021 5:57 PM EST 05/31/2021 6:05 PM EST Narrative Resulting Agency Comment Spec In Lab Janessa Davies APRN HEMATOLOGY ORDERABLE S [facility] [place] [address] * (ABNORMAL) Hemogram (05/31/2021 5:57 PM EST) White Blood Cell 9.6(H) 4.0 - 9.5 x10(3)/ L [facility] Red Blood Cell 4.62 4.00 - 5.21 x10(6)/[facility] Hemoglobin 13.5 11.7 - 15.5 g/dL [facility] Hematocrit 40.2 35.7 - 45.8 % [facility] Mean Cell Volume 87.0 82.6 - 94.4 fL [facility] Mean Cell Hemoglobin 29.2 27.1 - 32.0 pg [facility] Mean Cell Hemoglobin Concentration 33.6 31.7 - 35.0 g/dL [facility] Platelet 404(H) 145 - 357 x10(3)/ L [facility] RDW Standard Deviation 43.3 37.0 - 46.0 [facility] RDW coefficient of variation 13.6 11.5 - 14.1 % [facility] Mean Platelet Volume 8.8 7.6 - 12.9 fL [facility] NRBC% auto 0.0 % [facility] NRBC Absolute 0.000 0.000 - 0.000 x10(3)/ L [facility] Blood 05/31/2021 5:57 PM EST 05/31/2021 6:05 PM EST Narrative Resulting Agency Comment Spec In Lab Janessa Sal Bill BAE HEMATOLOGY ORDERABLE S Performing Organization Address City/[facility] Co de Phone Number [facility] [place] [address] * Lipase (05/31/2021 5:57 PM EST) Lipase 46 0 - 60 unit/L [facility] Blood 05/31/2021 5:57 PM EST 05/31/2021 6:05 PM EST Narrative Resulting Agency Comment Spec In Lab Janessa E Bill BAE CHEMISTRY ORDERABLES Performing Organization Address [facility] Phone Number [facility] [place] [address] * Comprehensive metabolic panel (non-fasting) (05/31/2021 5:57 PM EST) Glucose 154 65 - 199 mg/dL [facility] Comment:Diabetes: >=200 mg/d L plus symptoms Blood Urea Nitrogen 14 8 - 18 mg/dL [facility] Creatinine 0.90 0.70 - 1.20 mg/dL [facility] Sodium 140 135 - 145 mmol/L [facility] Potassium 4.2 3.5 - 5.0 mmol/L [facility] Comment: Please note: ??Patients with WBC >100,000 may have falsely elevated Potassium levels. ??For accurate Potassium quantification in these patients send serum separator tube (gold top) for subsequent determinations. ??Contact the Clinical Chemistry Laboratory if there are any questions. Chloride 103 98 - 107 mmol/L [facility] Carbon Dioxide 26 22 - 31 mmol/L [facility] Anion Gap 11 5 - 15 mmol/L [facility] Calcium 9.5 8.5 - 10.5 mg/dL [facility] Protein, Total 7.3 6.1 - 8.0 g/dL [facility] Albumin 4.3 3.2 - 5.2 g/dL [facility] Aspartate Aminotransferase 17 0 - 30 unit/L [facility] Alanine Aminotransferase 22 0 - 30 unit/L [facility] Alkaline Phosphatase 104 35 - 105 unit/L [facility] Bilirubin, Total 0.2 0.2 - 1.3 mg/dL [facility] Est Glomerular Filtration Rate 69 >=60 mL/min/1. 73 m?? [facility] Comment: This patient? s estimated glomerular filtration rate (eGFR) is between 69 mL/min/1.73 m2 (patients with less muscle mass) and 80 mL/min/1.73 m2 (patients with more muscle mass) [...] and symptoms in addition to eGFR. Blood 05/31/2021 5:57 PM EST 05/31/2021 6:05 PM EST Narrative Resulting Agency Comment Spec In Lab Janessa Davies APRN CHEMISTRY ORDERABLES [facility] [place] [address] * (ABNORMAL) Hemoglobin A1c (05/31/2021 5:57 PM EST) Hemoglobin A1c 7.8(H) 4.3 - 5.6 % [facility] Comment: Reference Range: 4.3 [...] Mellitus, Diabetes Care 2013; 36: Suppl. 1, S67-74 Estimated Average Glucose 178 mg/dL [facility] Comment: eAG equivalents for [...] into estimated average glucose values. ??Diabetes Care 2008:31(8):8337-5365. Blood 05/31/2021 5:57 PM EST 05/31/2021 6:05 PM EST Narrative Resulting Agency Comment Spec In Lab Janessa Davies APRN CHEMISTRY ORDERABLES [facility] [place] [address] * EKG 12 Lead (05/31/2021 5:16 PM EST) Ventricular rate 68 BPM MUSE SYSTEM Atrial Rate 68 BPM MUSE SYSTEM P-R Interval 180 ms MUSE SYSTEM QRS Duration 92 ms MUSE SYSTEM Q-T Interval 390 ms MUSE SYSTEM QTC Calculated (Bezet) 414 ms MUSE SYSTEM Calculated P [place] 33 degrees MUSE SYSTEM Calculated R [place] 12 degrees MUSE SYSTEM Calculated T [place] 41 degrees MUSE SYSTEM INTERPRETATION Normal sinus rhythm Nonspecific T wave abnormality Abnormal ECG When compared with ECG of 11-SEP-2020 14:20, No significant change was found Confirmed by MD Elsa, Zain Banda ([id number]) on 06/01/2021 9:16:58 AM MUSE SYSTEM 05/31/2021 5:16 PM EST 06/01/2021 9:16 AM EST Janessa Davies APRN ECG ORDERABLES MUSE SYSTEM documented in this encounter Visit Diagnoses Diagnosis Healthcare maintenance Routine general medical examination at a health care facility Type 2 diabetes mellitus with hyperglycemia, without long-term current use of insulin Chest pain, unspecified type Right upper quadrant pain Abdominal pain, right upper quadrant Right leg pain Pain in limb Nonalcoholic hepatosteatosis Other chronic nonalcoholic liver disease Right upper quadrant pain Abdominal pain, right upper quadrant documented in this encounter Care Teams Traffic Inspector Relationship Specialty Start Date End Date Luis E Narayan MD [facility] [address] [place] [address] PCP - General Family Medicine 03/26/19 01/19/22 documented as of this encounter
--- OUTSIDE RECORDS SUMMARY | 2024-03-04 21:24 | XMS_ITS | Encounter Summary ---
Author Organization [facility] Address [facility] [place] [address] Care Team Providers Care Sample Case Porter Name Role Phone Luis E Narayan MD Primary Care Provider Encounter Details Date Type Department Care Team (Late st Contact Info) Description 01/04/2021 Ancillary Procedure [place] [address] Luis E Narayan MD [facility] [address] [facility] [address] Social History Tobacco Use Types Packs/Day Years [...] or rent on time? Patient refused 09/16/19 In the last 12 months, how many places have you lived? 1 09/15/2020 In the last 12 months, was t here a time when you did not have a steady place to sleep or slept in a mcfp (including now)? No 09/15/2020 Sex and Gender [...] [facility] [address] [place] [address] Denisse Hardwick, VP [facility] 03/20/2024 2:00 PM EDT Clinical Support Family Medicine at [facility] [address] [place] [address] Julia Low [facility] 05/01/2024 11:20 AM EDT Appointment Mammography/[place] [address] Rodney Padilla MD [address] [place] [address] 05/01/2024 1:45 PM EDT Office [place] [address] Juanpablo Hernandez MD [facility] [place] [address] 01/30/2025 1:30 PM EDT Appointment Hematology and Oncology at [place] [phone] 01/30/2025 3:[address] [place] [address] Arturo Cordero MD [facility] HEMATOLOGY [place] [address] 01/30/2025 4:15 PM EDT Office Visit Hematology [place] [address] Arturo Cordero MD [facility] DR HEMATOLOGY [place] [address] documented as of this encounter Procedures Procedure Name Priority Date/Time Associated Diagnosis Comments FILM LIBRARY STORAGE ONLY DX CHEST Routine 01/04/2021 12:00 AM EDT documented in this encounter Results * Film Library- Storage Only DX Chest (01/04/2021 12:00 AM EDT) Narrative [facility] - 02/15/2021 11:34 AM EDT This exam is auto-finalizing. It's purpose is for storage only. Luis E Narayan MD IMG FILM LIBRARY OR DERABLES [place], [place] documented in this encounter Visit Diagnoses Not on filedocumented in this encounter Care Teams Sample Case Porter Relationship Specialty Start Date End Date Luis E Narayan MD [facility] [address]-[place] [address] PCP - General Family Medicine 03/26/19 01/19/22 documented as of this encounter
--- OUTSIDE RECORDS SUMMARY | 2024-03-04 21:24 | XMS_ITS | Encounter Summary ---
[place] [address] Care Team Providers Care Fitter Tacker Name Role Phone Luis E Narayan MD Primary Care Provider Reason for Referral * Diagnostic Test (Routine) - Closed Specialty Diagnoses / Procedures Referred By Gonzalez kumari Referred To Contact Radiology Diagnoses Malignant melanoma of conjunctiva, left Procedures CT Chest Abdomen Pelvis w Contrast (Generic) Leandra Black APRN [facility] [place] [address] [facility] [place] [address] Referral ID Status Reason Start Date Expiration Date V isits Requested Visits Authorized [id number] Closed Specialty Service Requested 12/17/2020 06/18/2022 1 1 Reason for Visit * Reason Comments Follow-up Encounter Details Date Type Department Care Team (Late st Contact Info) Description 12/17/2020 3:45 PM EDT Office Visit Hematology [place] [address] Arturo Cordero MD [facility] [place] [address] Leandra Black APRN [facility] HEMATOLOGY [place] [address] Malignant melanoma of conjunctiva, left; History of renal cell cancer Social History Tobacco Use Types Packs/Day Years Used Date Smoking Tobacco: Every Day Cigarettes 1 40 Smokeless Tobacco: Never Tobacco Cessation:Ready to Q uit: Yes; Counseling Given: Yes Comments:Not today. Very anxious [...] slept in a assisted (including now)? No 09/15/2020 Sex and Gender Information Value Date Recorded Sex Assigned at Not on file Gender Identity Not on file Sexual Orientation Not on file documented as of this encounter Last Filed Vital Signs Vital Sign Reading Time Taken Comments Blood Pressure 128/80 12/17/2020 3:36 PM EDT Pulse 71 12/17/2020 3:36 PM EDT Temperature 36.1 ??C (97 ??F) 12/17/2020 3:36 PM EDT Respiratory Rate 17 12/17/2020 3:36 PM EDT Oxygen Saturation 96% 12/17/2020 3:36 PM EDT Inhaled Oxygen Concentration - - Weight 114.5 kg (252 lb 6.4 oz) 12/17/2020 3:36 PM EDT Height 159 cm (5' 2.6) 12/17/2020 3:36 PM EDT Body Mass Index 45.29 12/17/2020 3:36 PM EDT documented in this encounter Progress Notes * Leandra Black, KATHIA - 12/17/2020 3:45 PM EDT Images from the original note were not included. [facility] FOLLOW UP NOTE REFERING PHYSICIAN: Dr. [...] management - fall 2018: saw a new repairer and was referred to Dr. 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 Medina - 03/31/2020: saw her repairer Dr. Hernandez and was noted to have [...] 12/17/2020 shows no evidence of metastatic disease HPI: [...] scan. Overall she is doing well. She states that for a few weeks now she has felt a pressure in bilateral eyes. L>R. She deniespain in her eyes, change in discharge, increased tearing, vision change and diplopia. When asked more about the pressure Patience states it feels like her eye is just swollen and she can not describe the feeling well. She states she reached out to Dr. Hernandez office about this earlier on in the month, but has not had an appointment with him. She is scheduled to have an appointment in January. Additionally Patience reports persistent swelling in bilateral lower extremities. They are not painful, no open area, no weeping. Reports they feel tight and are worse in the warmer weather. No CP or orthopnea She denies any new lump, bump, lesions of concern. REVIEW OF SYSTEMS: Constitutional: No fever, no fatigue, occasional dizziness. No headache. Eyes: Pressure in bilateral eyes L>R (see above) ENT: No hearing change Cardiovascular: Negative Respiratory: Negative Gastrointestinal: Negative, Genitourinary: Negative Musculoskeletal: No new joint pain, noted chronic lower back pain Skin: Bilateral lower extremity edema Neurological: No focal weakness. Has chronic balance issues, memory issues and speech dysfunction for the past 1-1.5 years. Psychiatric: stable mood PAST MEDICAL HISTORY: Past Medical History: Diagnosis Date ??? Allergy ??? Antiplatelet or antithrombotic long-term use aspirin, plavix ??? Arthritis ??? Asthma uses inhalerswith good effect ??? Atherosclerosis of [place] coronary artery of [place] heart with angina pectoris 10/09/2007 History of [...] 3.47) performed by Juanpablo Hernandez MD at [facility] ??? PRO EXCIS CORNEA LESN Left 05/14/2020 EXCISION OF LESION, CORNEA, EXCEPT PTERYGIUM (WRVU 7.5) performed by Juanpablo Hernandez MD at [facility] ??? PRO LAP, PARTIAL NEPHRECTOMY Left 06/28/2019 LAPAROSCOPY, PARTIAL NEPHRECTOMY, ROBOTIC ASSIST (WRVU 27.41) performed by Avila Medina MD at [facility] MA[facility] OR ??? PRO PLACE AMNIOTIC MEMBRANE OCULAR SURFACE;SINGLE LAYER SUTURED Left 05/14/2020 PLACEMENT OF AMNIOTIC MEMBRANE ON THE OCULAR SURFACE,SINGLE LAYER,SUTURED (WRVU 2.5) performed by Juanpablo Hernandez MD at [facility] MEDS: Blood-Glucose Meter, LORazepam, albuteroL, amLODIPine, aspirin EC, blood sugar diagnostic strips, budesonide-formoteroL, busPIRone, clopidogreL, cyclobenzaprine, flash glucose scanning reader, flash glucose sensor, fluorometholone, fluticasone propionate, inhalational spacing device, lamoTRIgine, lancets, loratadine, losartan, metFORMIN, metoprolol succinate XL, nicotine, nicotine polacrilex, nitroGLYcerin, omeprazole, polyethylene glycoL, simvastatin, and traZODone ALLERGY: Allergies Allergen Reactions [...] with significant other 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 50+ pack/ yr hx No alcohol One daughter who is a positive support Social Determinants of Health Financial Resource Strain: High Risk ??? Difficulty of Paying Living Expenses: Hard Food Insecurity: No Food Insecurity ??? Worried About Running Out of Food in the Last Year: Never true ??? Ran Out of Food in the Last Year: Never true Transportation Needs: No Transportation Needs ??? Lack of Transportation (Medical): No ??? Lack of Transportation (Non-Medical): No Physical Activity: Insufficiently Active ??? Days of Exercise per Week: 3 days ??? Minutes of Exercise per Session: 20 min Family history: - 2 brother - renal cell carcinoma - brother- pancreatic cancer - mother - uterine cancer in her 70s - maternal aunt - breast cancer - maternal aunt - renal cancer PHYSICAL EXAM: PS=1 close to 0 General: not in acute distress. in good mood and spirits BP 128/80 (Patient Position: Sitting) Pulse 71 Temp 36.1 ??C (97 ??F) (Temporal) Resp 17 Ht159 cm (5' 2.6) Wt 114.5 kg (252 lb 6.4 oz) SpO2 96% BMI 45.29 kg/m?? Eyes: Not icteric, No obvious injection or discharge to bilateral eyes. No visible lesion. Oral: Not examined Neck: Supple. No lymphadenopathy. Lungs: Bilaterally clear to auscultation, No wheezing, No crackles Heart: Regular rate and rhythm. Abdomen: Soft, no tenderness, no mass, normal active bowel sounds. Extremities: +1 bilateral lower extremity edema Skin: No rash Neuro: No focal weakness LABS: CBC unremarkable CMP unremarkable except glucose 220 IMAGING STUDIES: CT Neck Soft Tissue on 12/17/2020 Normal [...] scans show no evidence of metastatic disease, 3 month from completing treatment with Mitomycin-C eyedrops. She continues to see Dr. Hernandez regularly. For her eye pressure, I instructed Patience to reach out to Dr. Hernandez office again. It is unclear what is causing this symptom. ROS was otherwise unremarkable. I encouraged Patience to reach out to her primary care team should she continue to have persistent or increasing bilateral lower extremity edema, as her PCP has been monitoring this. Her physical examwas otherwise benign. As long as Patience remains stable, she will have a stand alone US of her neck in 3 mos. We will plan on seeing her back in clinic with surveillance CT scan in 6 mos. The pt was in agreement with the plan outlined above and was instructed to call with any new symptoms or concerns. Leandra Black DNP, DESIGN CELL ENGINEER Return in 3 mos for stand alone US RTC in 6 mos with labs, clinic appointment and CT scan documented in this encounter Plan of Treatment Upcoming Encounters Date Type Department Care Team (Late st Contact Info) Description 03/20/2024 9:00 AM EDT TH Visit (TeleHealth) Sleep Center at [facility] [address] [place] [address] Denisse Hardwick, TRUCK TECHNICIAN SLEEP CENTER 03/20/2024 2:00 PM EDT Clinical Support Family Medicine at [facility] [address] [place] [address] Julia Low, [facility] 05/01/2024 11:20 AM EDT Appointment Mammography/[place] [address] Rodney Padilla MD [address] [place] [place] [address] 05/01/2024 1:45 PM EDT Office [place] [address] Juanpablo Hernandez MD [facility] [place] [address] 01/30/2025 1:30 PM EDT Appointment Hematology [place] [address] 01/30/2025 3:[address] [place] [address] Arturo Cordero MD [facility] [place] [address] 01/30/2025 4:15 PM EDT Office Visit Hematology [place] [address] Arturo Cordero MD [facility] [place] [address] documented as of this encounter Results * [...] who have questions please contact the health critical care nurse specialist that requested your imaging first. ? Narrative 06/24/2021 4:35 PM EST EXAMINATION: CT [...] patients who have questions please contactthe health critical care nurse specialist that requested your imaging first. Electronically signed by: Paulina Saldivar MD, [facility]([phone]), at 06/24/2021 4:35 PM Leandra Black DESIGN CELL ENGINEER IMG CT ORDERABLES * Lactate Dehydrogenase (06/24/2021 12:52 PM EST) Lactate Dehydrogenase 215 110 - 220 unit/L [facility] Blood 06/24/2021 12:5 2 PM EST 06/24/2021 1:02 PM EST Narrative Resulting Agency Comment Spec In Lab Leandra Chelsea Black APRN CHEMISTRY ORDERABL ES [facility] [place] [address] * (ABNORMAL) Comprehensive metabolic panel (non-fasting) (06/24/2021 12:52 PM EST) Glucose 185 65 - 199 mg/dL [facility] Comment:Diabetes: >=200 mg/d L plus symptoms Blood Urea Nitrogen 12 8 - 18 mg/dL [facility] Creatinine 0.91 0.70 - 1.20 mg/dL [facility] Sodium 140 135 - 145 mmol/L [facility] Potassium 4.2 3.5 - 5.0 mmol/L [facility] Comment: Please note: ??Patients with WBC >100,000 may have falsely elevated Potassium levels. ??For accurate Potassium quantification in these patients send serum separator tube (gold top) for subsequent determinations. ??Contact the Clinical Chemistry Laboratory if there are any questions. Chloride 104 98 - 107 mmol/L [facility] Carbon Dioxide 25 22 - 31 mmol/L [facility] Anion Gap 11 5 - 15 mmol/L [facility] Calcium 9.6 8.5 - 10.5 mg/dL [facility] Protein, Total 6.9 6.1 - 8.0 g/dL [facility] Albumin 4.3 3.2 - 5.2 g/dL [facility] Aspartate Aminotransferase 27 0 - 30 unit/L [facility] Alanine Aminotransferase 34(H) 0 - 30 unit/L [facility] Alkaline Phosphatase 93 35 - 105 unit/L [facility] Bilirubin, Total 0.3 0.2 - 1.3 mg/dL [facility] Est Glomerular Filtration Rate 68 >=60 mL/min/1. 73 m?? [facility] Comment: This patient? s estimated [...] Lab Leandra Black APRN CHEMISTRY ORDERABL ES Performing Organization Address City/State/[facility] Co de Phone Number [facility] [place] [address] * US Soft Tissue Head Or Neck (03/19/2021 11:03 AM EDT) Anatomical Region Laterality Modality Ultrasound 03/19/2021 10:5 4 AM EDT Impressions 03/19/2021 12:13 PM EDT ?? Comparison 09/15/2020 Lymph nodes visualized in the left cervical region demonstrate normal morphology. No suspicious findings. Electronically signed by: Faina Hernández MD, [facility] ([phone]), at 03/19/2021 12:07 PM Thank you for letting us participate in the care of this patient. If you are a health care provider and have any questions regarding this report, please contact the number above. For patients who have questions, please contact the health critical care nurse specialist that requested your imaging first. ?Faina Hernadez, Staff Physician Electronically Signed Final Report ?? 03/19/2021 12:13 pm Narrative 03/19/2021 12:13 PM EDT Ultrasound Soft Tissue ?(Signed Final 03/19/2021 12:13 pm) Neck or Head Report PATIENT INFO: ID #: ? [id number] ?: ??[birth year] (60 yrs)(F) Name: ? PATIENCE MANJARREZ ? Visit Date: 03/19/2021 10:54 am PERFORMED BY: Performed By: ? Tonia Lopes RDMS Attending: ?Faina Hernández MD Referred By: ?LEANDRA BLACK Location: ? [place] SERVICE(S) PROVIDED: USTN - Soft Tissue Neck or Head - [id number] ? [id number] INDICATIONS: History of left eye conjunctival melanoma s/p resection, [facility] imaging of left neck ran basin COMPARISON: Us 09/15/20 --------- FINDINGS: --------- Title: ? Ultrasound Soft Tissue Neck or Head Report Findings: ?Normal appearing lymph nodes largest measuring ?2.2 x 0.6 x 1.1 cm Procedure Note Faina Lamar MD - 03/19/2021 Ultrasound Soft Tissue (Signed Final 03/19/2021 12:13 pm) Neck or Head Report PATIENT INFO: ID #: [id number] : 58 (60 yrs)(F) Name: PATIENCE MANJARREZ Visit Date: 03/19/2021 10:54 am PERFORMED BY: Performed By: Tonia Lopes RDMS Attending: Faina Hernández MD Referred By: LEANDRA BLACK Location: [place] SERVICE(S) PROVIDED: USTN - Soft Tissue Neck or Head - [id number] INDICATIONS: History of left eye conjunctival melanoma s/p resection, [facility] imaging of left neck ran basin COMPARISON: Us 09/15/20 --------- FINDINGS: --------- Title: Ultrasound Soft Tissue Neck or Head Report Findings: Normal appearing lymph nodes largest measuring 2.2 x 0.6 x 1.1 cm IMPRESSION Comparison 09/15/2020 Lymph nodes visualized in the left cervical region demonstrate normal morphology. No suspicious findings. Electronically signed by: Faina Hernández MD, [facility] ([phone]), at 03/19/2021 12:07 PM Thank you for letting us participate in the care of this patient. If you are a health care provider and have any questions regarding this report, please contact the number above. For patients who have questions, please contact the health critical care nurse specialist that requested your imaging first. Faina Hernadez, Staff Physician Electronically Signed Final Report 03/19/2021 12:13 pm Leandra Black APRN IMG US GEN ORDERAB LES documented in this encounter Visit Diagnoses Diagnosis Malignant melanoma of conjunctiva, left History of renal cell cancer Malignant melanoma of conjunctiva, left Malignant melanoma of conjunctiva, left documented in this encounter Care Teams Fitter Tacker Relationship Specialty Start Date End Date Luis E Narayan MD [facility] [address] [place] [address] PCP - General Family Medicine 03/26/19 01/19/22 documented as of this encounter
--- OUTSIDE RECORDS SUMMARY | 2024-03-04 21:24 | XMS_ITS | Encounter Summary ---
Author Organization [facility] [place] [address] Care Team Providers Care Billing Machine Operator Name Role Phone Luis E Narayan MD Primary Care Provider [phone] Reason for Visit * Reason Onset Date Comments Prior Authorization 04/06/2021 Omeprazole Encounter Details Date Type Department Care Team (Late st Contact Info) Description 04/06/2021 Telephone Family Medicine at [facility] [address] [place] [phone] Arlene Palomo, LEARNING SUPPORT SERVICES DIRECTOR Prior Authorization (Omeprazole) Social History Tobacco Use Types Packs/Day Years [...] slept in a snf (including now)? No 02/03/2021 Sex and Gender Information Value Date Recorded Sex Assigned at Not on file Gender Identity Not on file Sexual Orientation Not on file documented as of this encounter Miscellaneous Notes * Telephone Encounter - Christine Peterson CMA - 04/06/2021 9:15 AM EDT Medication Prior Authorization for Primary Care Approved: Omeprazole Start Date: 04/06/2021 End Date: 07/06/2021 Case/Reference #: [id number] See Approval Letter in scanned documents. Additional Notes: * Telephone Encounter - Arlene Palomo CMA - 04/06/2021 7:48 AM EDT Medication Prior Authorization for Primary [place] [address] Request received via: Message Patient: Alize Gramajo Patient : 1960 Insurance Company: [place] Medicaid Sent via: AVdirect Anderson: [id number] Physician: Luis E Narayan MD ?? Medication Requested: omeprazole (PriLOSEC OTC) 20 mg Tablet, Delayed Release Frequency/Sig: Take 2 tablets by mouth daily. Indications: gastroesophageal reflux disease Disp: 180 Refills: 3 Currently taking: no If yes, how long: Diagnosis for this medication: Gastroesophageal reflux disease without esophagitis (K21.9) Prior medications trialed in this patient: Medication: omeprazole Approx Dates: Outcome/Adverse Reactions: inadequate response Medication: Pantoprazole Approx Dates: 2018 Outcome/Adverse Reactions: inadequate response documented in this encounter Plan of Treatment Upcoming Encounters Date Type Department Care Team (Late st Contact Info) Description 03/20/2024 9:00 AM EDT TH Visit (TeleHealth) Sleep Center at [facility] [address] [place] [phone] Denisse Hardwick, MANAGER GAMING SLEEP CENTER 03/20/2024 2:00 PM EDT Clinical Support Family Medicine at [facility] [address] [place] [address] Julia Low, [facility] 05/01/2024 11:20 AM EDT Appointment Mammography/[place] [address] Rodney Padilla MD [address] [facility] [place] [address] 05/01/2024 1:45 PM EDT Office [place] [address] Juanpablo Hernandez MD [facility] [place] [address] 01/30/2025 1:30 PM EDT Appointment Hematology [place] [address] 01/30/2025 3:[address] [place] [address] Arturo Cordero MD [facility] HEMATOLOGY [place] [address] 01/30/2025 4:15 PM EDT Office Visit Hematology [place] [address] Arturo Cordero MD [facility] HEMATOLOGY [place] [address] documented as of this encounter Visit Diagnoses Not on filedocumented in this encounter Care Teams Billing Machine Operator Relationship Specialty Start Date End Date Luis E Narayan MD [facility] [address] [place] [address] PCP - General Family Medicine 03/26/19 01/19/22 documented as of this encounter
--- OUTSIDE RECORDS SUMMARY | 2024-03-04 21:24 | XMS_ITS | Encounter Summary ---
Author Organization [facility] [place] [address] Care Team Providers Care College Teacher Name Role Phone Luis E Narayan MD Primary Care Provider [phone] Encounter Details Date Type Department Care Team (Latest Contact Info) Description 06/08/2021 10:16 AM EST - 06/08/2021 11:59 PM [facility] Hospital [place] [address] Janessa Khan, ORTHODONTIST [facility] DR [address] [place] [address] Right upper quadrant pain Discharge Disposition: Home Social History Tobacco Use [...] (E.C.) Take 81 mg by mouth daily. chlorhexidine (Peridex) 0.12 % Mouthwash Take 15 mLs by mouth 2 times daily. 473 mL 06/09/2021 07/27/2021 amLODIPine (Norvasc) 5 mg TabletIndications:Ess ential hypertension Take 1 tablet by mouth daily. 90 tablet 3 06/04/2021 12/10/2021 budesonide-formoteroL (Symbicort) 80-4.5 mcg/actuation HFA Aerosol InhalerIndications:Si mple chronic bronchitis Inhale 2 puffs into the lungs 2 times daily. 3 each 3 05/26/2021 06/24/2022 omeprazole (PriLOSEC) 40 mg Capsule, Delayed Release(E.C.) Take 1 capsule by mouth daily. 90 capsule 3 05/07/2021 03/01/2022 omeprazole (PriLOSEC OTC) 20 mg Tablet, Delayed Release (E.C.)Indications:gas troesophageal reflux disease Take 2 tablets by mouth daily. Indications: gastroesophageal reflux disease 180 tablet 3 05/05/2021 06/14/2021 losartan (Cozaar) 100 mg Tablet Take 1 [...] 3 02/03/2021 06/16/2022 metFORMIN (GLUCOPHAGE) 1,000 mg TabletIndications:Typ e 2 diabetes mellitus with hyperglycemia, without long-term current use of insulin Take 1 tablet by mouth 2 times daily (with meals). 180 tablet 1 01/08/2021 08/02/2021 FreeStyle Sanjana 2 Peshtigo MiscIndications:diabe escobar mellitus 1 each by Other route daily. Indications: diabetes mellitus 1 each 12/10/2020 10/26/2021 FreeStyle Sanjana 2 Sensor KitIndications:diabet es mellitus 1 each by Other route daily. Indications: diabetes mellitus 6 kit 3 12/10/2020 10/26/2021 cyclobenzaprine (Flexeril) 5 mg TabletIndications:Chr onic bilateral low back pain without sciatica Take 1 tablet by mouth 3 times daily as needed for Muscle spasms. 21 tablet 11/03/2020 06/14/2021 albuteroL (Proventil HFA) 90 mcg/actuation HFA Aerosol InhalerIndications:Si mple chronic bronchitis Inhale 2 puffs into the lungs every 4 hours as needed for wheeze. Use with spacer 1 Inhaler 11 10/09/2020 12/10/2021 inhalational spacing device SpacerIndications:Sim ple chronic bronchitis For use with albuterol inhaler every 4 hours as needed for wheeze. 1 each 10/09/2020 06/14/2021 fluorometholone (FML Forte) 0.25 % Drops, Suspension Place 1 drop into the left eye 3 times daily. 10 mL 3 09/30/2020 06/14/2021 nicotine (NICODERM CQ) 21 mg/24 hr Patch 24 hr Change 1 patch on the skin every 24 hours. 06/14/2021 nicotine polacrilex (NICORETTE) 2 mg Gum Take 2 mg by mouth as needed. 06/14/2021 polyethylene glycoL (Miralax) 17 gram Powder in PacketIndications:Con stipation, unspecified constipation type Take 17 g by mouth daily. 14 each 09/15/2020 09/19/2023 fluticasone propionate (FLONASE) 50 mcg/actuation [place], Suspension 1 spray by Each Nare route 2 times daily. 16 g 11 08/04/2020 09/07/2021 nicotine (NICOTROL) 10 mg CartridgeIndications: Encounter for smoking cessation counseling Inhale 1 puff into the lungs as needed for Smoking cessation. 168 each 3 06/29/2020 06/14/2021 simvastatin (Zocor) 10 mg TabletIndications:Mix ed hyperlipidemia Take 1 tablet by mouth daily. 90 tablet 3 06/23/2020 06/19/2021 LORazepam (Ativan) 1 mg Tablet Take 1 mg by mouth every evening. 04/19/2022 busPIRone (Buspar) 10 mg Tablet Take 20 mg by mouth 2 times daily. 04/19/2022 lamoTRIgine (LaMICtal) 100 mg TabletIndications:Bip olar affective [...] [facility] [address] [place] [phone] Denisse Hardwick, [facility] 03/20/2024 2:00 PM EDT Clinical Support Family Medicine at [facility] [address] [place] [address] Julia Low, [facility] 05/01/2024 11:20 AM EDT Appointment Mammography/[place] [phone] Rodney Padilla MD [address] [facility] [place], [place] [id number] 05/01/2024 1:45 PM EDT Office [place] [phone] Juanpablo Hernandez MD [facility] [place] [address] 01/30/2025 1:30 PM EDT Appointment Hematology [place] [address] 01/30/2025 3:[address] [place] [phone] Arturo Cordero MD [facility] DR [place] [address] 01/30/2025 4:15 PM EDT Office Visit [place]ematology [place] [address] Arturo Cordero MD [facility] DR [place] [address] documented as of this encounter Procedures Procedure Name Priority Date/Time Associated Diagnosis Comments US ABDOMEN LIMITED Routine 06/08/2021 10 :59 AM EST Right upper quadrant pain documented in this encounter Results * US [...] have questions, please contact the health career developer that requested your imaging first. ? Nakia Goetz, Staff Physician Electronically Signed Final Report ?? 06/08/2021 12:08 pm Narrative 06/08/2021 12:09 PM EST Abdominal ? (Signed Final 06/08/2021 12:08 pm) PATIENT INFO: ID #: ? [id number] ?: ??[birth year] (60 yrs)(F) Name: ? PATIENCE MANJARREZ ? Visit Date: 06/08/2021 11:00 am PERFORMED BY: Performed By: ? Vaughn Marcial RDMS Attending: ?Sofy COLVIN, Nakia Andrade Referred By: ?JANESSA KHAN Location: ? [place] SERVICE(S) PROVIDED: UABDLIM - Abdominal Limited Survey Single ? [id number] Organ or Quadrant - [id number] INDICATIONS: RUQ pain, postprandial with fats COMPARISON: [...] 06/08/2021 12:08 pm) PATIENT INFO: ID #: [id number] : 58 (60 yrs)(F) Name: PATIENCE MANJARREZ Visit Date: 06/08/2021 11:00 am PERFORMED BY: Performed By: Vaughn Marcial RDMS Attending: Nakia Goetz MD Referred By: JANESSA KHAN Location: [place] SERVICE(S) PROVIDED: UABDLIM - Abdominal Limited Survey Single 87176 Organ or Quadrant - [id number] INDICATIONS: RUQ pain, postprandial with fats COMPARISON: [...] have questions, please contact the health career developer that requested your imaging first. Nakia Goetz, Staff Physician Electronically Signed Final Report 06/08/2021 12:08 pm Janessa Khan APRN IMG US GEN ORDERABLE S documented in this encounter Visit Diagnoses Diagnosis Right upper quadrant pain Abdominal pain, right upper quadrant documented in this encounter Care Teams College Teacher Relationship Specialty Start Date End Date Luis E Narayan MD [facility] [place] [address] PCP - General Family Medicine 03/26/19 01/19/22 documented as of this encounter
--- OUTSIDE RECORDS SUMMARY | 2024-03-04 21:24 | XMS_ITS | Encounter Summary ---
Author Organization [facility] [place] [address] Care Team Providers Care Account Planner Name Role Phone Luis E Narayan MD Primary Care Provider [phone] Encounter Details Date Type Department Care Team (Late st Contact Info) Description 03/31/2021 Orders Only Family Medicine at [address] [place] [address] Alejandra Posadas, RN Social History Tobacco Use Types Packs/Day [...] in a senior living (including now)? No 02/03/2021 Sex and Gender Information Value Date Recorded Sex Assigned at Not on file Gender Identity Not on file Sexual Orientation Not on file documented as of this encounter Plan of Treatment Upcoming Encounters Date Type Department Care Team (Late st Contact Info) Description 03/20/2024 9:00 AM EDT TH Visit (TeleHealth) Sleep Center at [facility] [address] [place] [address] Denisse Hardwick, [facility] 03/20/2024 2:00 PM EDT Clinical Support Family Medicine [facility] [address] [place] [address] Julia Low, [facility] 05/01/2024 11:20 AM EDT Appointment Mammography/[place] [phone] Rodney Padilla MD [address] [place] [address] 05/01/2024 1:45 PM EDT Office [place] [address] Juanpablo Hernandez MD [facility] [place] [address] 01/30/2025 1:30 PM EDT Appointment Hematology [place] [address] 01/30/2025 3:[address] [place] [address] Arturo Cordero MD [facility] [place] [address] 01/30/2025 4:15 PM EDT Office Visit Hematology [place] [phone] Arturo Cordero MD [facility] [place] [address] documented as of this encounter Visit Diagnoses Not on filedocumented in this encounter Care Teams Account Planner Relationship Specialty Start Date End Date Luis E Narayan MD [facility] DR [address] [place] [address] PCP - General Family Medicine 03/26/19 01/19/22 documented as of this encounter
--- OUTSIDE RECORDS SUMMARY | 2024-03-04 21:24 | XMS_ITS | Encounter Summary ---
[place] [address] Care Team Providers Care Director Of Dietary Name Role Phone Luis E Narayan MD Primary Care Provider [phone] Encounter Details Date Type Department Care Team (Late st Contact Info) Description 12/10/2020 E-Consult [place] [phone] Julia Low, [facility] Medication management Social History Tobacco Use [...] slept in a correction (including now)? No 09/15/2020 Sex and Gender Information Value Date Recorded Sex Assigned at Not on file Gender Identity Not on file Sexual Orientation Not on file documented as of this encounter Miscellaneous Notes * E-Consult - Julia Faustin [facility] - 12/10/2020 8:16 AM EDT Select F2 to choose the appropriate response: Proceed with eConsult 1. Restatement of the question: Pt is a 60 y.o. female with PMH significant for T2DM. The patient has been having higher BG readings and error messages reported on her current glucometer. The clinical question regarding this pt is whether she qualifies for Freestyle Sanjana CGM instead 2. Recommendation(s): Recommend Freestyle Libre2 as it appears to be covered by pt's insurance for $0 copay. See below for causes of inaccuracies 3. Rationale and/or evidence for recommendation: Factors that affect glucometer accuracy: Factors that affect accuracy Solutions Test strip problems Throw out damaged or outdated test strips. Store strips in their sealed container; keep them away from heat, moisture and humidity. Be sure the strips are meant for your specific glucose meter. Extreme temperatures Keep your glucose meter and test strips at room temperature. Alcohol, dirt or other substances on your skin Wash and dry your hands and the testing site thoroughly before pricking your skin. Improper coding Some meters must be coded to each container of test strips. Be sure the code numberin the device matches the code number on the test strip container. Monitor problems Fully insert the test strip into the monitor. Replace the monitor batteries as needed. Not enough blood applied to the test strip Touch a generous drop of blood to the test strip. Don't add more blood to the test strip after the first drop is applied. Testing site location If you're using a site other than your fingertip and you think the reading iswrong, test again using blood from a fingertip. Blood samples from alternate sites aren't as accurate as fingertip samples when your blood sugar level is rising or falling quickly. The amount of red blood cells in your blood If you are dehydrated or your red blood cell count is low (anemia), your test results may be less accurate. https://www.[facility].org/diseases-conditions/diabetes/expert-answers/blood-glu cose-monitors/faq-16166677 Reviewed test claims: Freestyle Sanjana 2 sensors #2: $0 Factors that affect Freestyle Libre2 CGM accuracy: When is Sensor Glucose different from Blood Glucose: ??? Physiological differences between the interstitial fluid and capillary blood may result in differences in glucose readings between the System and results from a fingerstick test using a blood glucose meter. ??? Differences in glucose readings between interstitial fluid and capillary blood may be observed during times of rapid change in blood glucose, such as after eating, dosing insulin, or exercising. What to know about X-Rays: ??? The Sensor should be removed prior to exposing it to an X-ray machine. The effect of X-rays on the performance of the System has not been evaluated. The exposure may damage the Sensor and may impact proper function of the device to detect trends and track patterns in glucose values during the wear period. When to remove the Sensor: ??? If the Sensor is becoming loose or if the Sensor tip is coming out of your skin, you may get noreadings or unreliable readings, which may not match how you feel. Check to make sure your Sensor has not come loose. If it has come loose, remove it, apply a new one, and contact Customer Service. ??? If you believe your glucose readings are not correct or are inconsistent with how you feel, perform a blood glucose test on your finger to confirm your glucose. If the problem continues, remove the current Sensor, apply a new one, and contact Customer Service. Customer Service is available at 7 Days a Week from 8AM to 8PM Eastern Standard Time. Interfering Substances ?? Taking ascorbic acid (vitamin C) supplements while wearing the Sensor may falsely raise Sensor glucose readings. Taking more than 500 mg of ascorbic acid per day may affect the Sensor readings which could cause you to miss a severe low glucose event. Ascorbic acid can be found in supplements including multivitamins. Some supplements, including cold remedies such as Airborne?? and Emergen-C??, may contain high doses of 1000 mg of ascorbic acid and should not be taken while using the Sensor. See your health childcare provider to understand how long ascorbic acid is active in your body. https://www.[employer].IdeaOffer/us-en/safety-information.html This eConsult is focused on the specific clinical question(s) asked by the referring clinician, is based on the clinical data available to me, the consulting physician, at the time of the request, and is furnished without benefit of a comprehensive evaluation or physical examination of the patient by me. The guidance set forth in the eConsult note will need to be interpreted in light of any clinical issues not known to me or any changes in patient status that I may not be aware of at the time of filing this eConsult. If further consultation is necessary, an in-person visit with me or another member of our group is an option. documented in this encounter Plan of Treatment Upcoming Encounters Date Type Department Care Team (Late st Contact Info) Description 03/20/2024 9:00 AM EDT TH Visit (TeleHealth) Sleep Center at [facility] [address] [place] [address] Denises Hardwick [facility] 03/20/2024 2:00 PM EDT Clinical Support Family Medicine at [facility] [address] [place] [address] Julia Low RPH 05/01/2024 11:20 AM EDT Appointment Mammography/[place] [address] Rodney Padilla MD [address] [facility] [place] [id number] 05/01/2024 1:45 PM EDT Office Visit Ophthalmology at [place] [address] Juanpablo Hernandez MD [facility] [place] [address] 01/30/2025 1:30 PM EDT Appointment Hematology and Oncology at [place] [address] 01/30/2025 3:[address] Scan at [place] [address] Arturo Cordero MD [facility] [address] [place] [address] 01/30/2025 4:15 PM EDT Office Visit Hematology and Oncology at [place] [address] Arturo Cordero MD [facility] [address] [place] [address] documented as of this encounter Visit Diagnoses Diagnosis Medication management Encounter for long-term (current) use of other medications documented in this encounter Care Teams Director Of Dietary Relationship Specialty Start Date End Date Luis E Narayan MD [facility] [address] [place] [address] PCP - General Family Medicine 03/26/19 01/19/22 documented as of this encounter
--- OUTSIDE RECORDS SUMMARY | 2024-03-04 21:24 | XMS_ITS | Encounter Summary ---
Author Organization [facility] Address [facility] [place] [address] Care Team Providers Care Touch Up Carver Name Role Phone Luis E Narayan MD Primary Care Provider [phone] Encounter Details Date Type Department Care Team (Late st Contact Info) Description 02/11/2021 Ancillary Procedure [place] [address] Luis E Narayan MD [facility] [address] [address] Social History Tobacco Use Types Packs/Day Years [...] in a group home (including now)? No 02/03/2021 Sex and Gender Information Value Date Recorded Sex Assigned at Not on file Gender Identity Not on file Sexual Orientation Not on file documented as of this encounter Plan of Treatment Upcoming Encounters Date Type Department Care Team (Late st Contact Info) Description 03/20/2024 9:00 AM EDT TH Visit (TeleHealth) Sleep Center at [facility] [address] [place] [address] Denisse Hardwick, [facility] 03/20/2024 2:00 PM EDT Clinical Support Family Medicine at [facility] [address] [place] [address] Julia Low [facility] 05/01/2024 11:20 AM EDT Appointment Mammography/[place] [phone] Rodney Padilla MD [address] [place] [place] [address] 05/01/2024 1:45 PM EDT Office [place] [address] Juanpablo Hernandez MD [facility] [place] [address] 01/30/2025 1:30 PM EDT Appointment Hematology and Oncology at [place] [address] 01/30/2025 3:[address] Scan at [place] [address] Arturo Cordero MD [facility] [place] [address] 01/30/2025 4:15 PM EDT Office Visit Hematology and Oncology at [place] [phone] Arturo Cordero MD [facility] [place]OLOGY [place] [address] documented as of this encounter Procedures Procedure Name Priority Date/Time Associated Diagnosis Comments FILM LIBRARY STORAGE ONLY CT ABDOMEN AND PELVIS Routine 02/11/2021 12:00 AM EDT documented in this encounter Results * Film Library- Storage Only CT Abdomen & Pelvis (02/11/2021 12:00 AM EDT) Narrative [facility] - 02/15/2021 11:35 AM EDT This exam is auto-finalizing. It's purpose is for storage only. Luis E Narayan MD IMG FILM LIBRARY OR DERABLES [place], [place] documented in this encounter Visit Diagnoses Not on filedocumented in this encounter Care Teams Touch Up Carver Relationship Specialty Start Date End Date Luis E Narayan MD [facility] DR [address] [place] [address] PCP - General Family Medicine 03/26/19 01/19/22 documented as of this encounter
--- OUTSIDE RECORDS SUMMARY | 2024-03-04 21:24 | XMS_ITS | Encounter Summary ---
Author Organization [facility] [place] [address] Care Team Providers Care Banquet Coordinator Name Role Phone Luis E Narayan MD Primary Care Provider [phone] Reason for Visit * Reason Onset Date Comments Other 12/04/2020 Encounter Details Date Type Department Care Team (Late st Contact Info) Description 12/04/2020 Telephone Family Medicine at [facility] [address] [place] [address] Stoner, Lacie L Other Social History Tobacco Use Types Packs/Day [...] slept in a residential (including now)? No 09/15/2020 Sex and Gender Information Value Date Recorded Sex Assigned at Not on file Gender Identity Not on file Sexual Orientation Not on file documented as of this encounter Miscellaneous Notes * Telephone Encounter - Alejandra Posadas RN - 12/10/2020 5:15 PM EDT Second message on unidentified line. Letter sent. * Telephone Encounter - Alejandra Posadas RN - 12/10/2020 11:31 AM EDT Called [phone]. Left voicemail asking for patient to call back. Refer to [facility] on 12/05. Was read on 12/06. * Telephone Encounter - Layne October Samy - 12/04/2020 4:41 PM EDT Message: Israel states that Dr. Cyr said she would call her today after talking with Dr. Narayan . Please call back to discuss Ask caller their first and last name and relationship to the patient: self Best time to call back: any Ok to leave a message: y Ok to send my- message: = Offered Appointment: MA/Nurse/Judicial Clerk contacted via: Message: y Call: n Pager: n documented in this encounter Plan of Treatment Upcoming Encounters Date Type Department Care Team (Late st Contact Info) Description 03/20/2024 9:00 AM EDT TH Visit (TeleHealth) Sleep Center at [facility] [address] [place] [address] Denisse Hardwick, [facility] 03/20/2024 2:00 PM EDT Clinical Support Family Medicine at [facility] [address] [place] [address] Julia Low, [facility] 05/01/2024 11:20 AM EDT Appointment Mammography/DXA at [place] [phone] Rodney Padilla MD [address] [facility] [place], [place] [id number] 05/01/2024 1:45 PM EDT Office Visit Ophthalmology at [place] [phone] Juanpablo Hernandez MD [facility] [place] [address] 01/30/2025 1:30 PM EDT Appointment Hematology and Oncology at [place] [phone] 01/30/2025 3:[address] Scan at [place] [phone] Arturo Cordero MD [facility] DR [place] [address] 01/30/2025 4:15 PM EDT Office Visit Hematology [place] [address] Arturo Cordero MD [facility] HEMATOLOGY [place] [address] documented as of this encounter Visit Diagnoses Not on filedocumented in this encounter Care Teams Banquet Coordinator Relationship Specialty Start Date End Date Luis E Narayan MD [facility] [address] [place] [address] PCP - General Family Medicine 03/26/19 01/19/22 documented as of this encounter
--- OUTSIDE RECORDS SUMMARY | 2024-03-04 21:24 | XMS_ITS | Encounter Summary ---
Author Organization [facility] [place] [address] Care Team Providers Care Replacer Name Role Phone Luis E Narayan MD Primary Care Provider Encounter Details Date Type Department Care Team (Late st Contact Info) Description 06/16/2021 Telephone Family Medicine at [address] [place] [phone] Thania Flores, RN Social History Tobacco Use Types Packs/Day [...] encounter Miscellaneous Notes * Telephone Encounter - Thania Flores RN - 06/16/2021 10:44 AM EST Call to patient. Left a voice message to call the office back or check my dh message. The call backnumber is [phone]. * Telephone Encounter - Thania Flores RN - 06/16/2021 7:53 AM EST ----- Message from Tamera Khan APRN sent at 06/15/2021 3:35 PM EST ----- Regarding: follow up phone call Can we please call 06/16 at some point in the day to make sure Alize picked up her antibiotics, and is beginning to feel better and let me know if not? She had a tooth infection that I want to keep a close eye on with her diabetes. Thank you! Tamera documented in this encounter Plan of Treatment Upcoming Encounters Date Type Department Care Team (Late st Contact Info) Description 03/20/2024 9:00 AM EDT TH Visit (TeleHealth) Sleep Center at [facility] [address] [place] [phone] Denisse Hardwick, MANUFACTURING SOFTWARE ENGINEER [facility] 03/20/2024 2:00 PM EDT Clinical Support Family Medicine at [facility] [address] [place] [phone] Julia Low [facility] 05/01/2024 11:20 AM EDT Appointment Mammography/DXA at [place] [phone] Rodney Padilla MD [address] [facility] [address] 05/01/2024 1:45 PM EDT Office Visit Ophthalmology at [place] [phone] Juanpablo Hernandez MD [facility] [place] [address] 01/30/2025 1:30 PM EDT Appointment Hematology and Oncology at [place] [phone] 01/30/2025 3:[address] Scan at [place] [phone] Arturo Cordero MD [facility] HEMATOLOGY [place] [address] 01/30/2025 4:15 PM EDT Office Visit Hematology [place] [address] Arturo Cordero MD [facility] HEMATOLOGY [place] [address] documented as of this encounter Visit Diagnoses Not on filedocumented in this encounter Care Teams Replacer Relationship Specialty Start Date End Date Luis E Narayan MD [facility] DR [facility] [place] [address] PCP - General Family Medicine 03/26/19 01/19/22 documented as of this encounter
--- OUTSIDE RECORDS SUMMARY | 2024-03-04 21:24 | XMS_ITS | Encounter Summary ---
Author Organization [facility] [place] [address] Care Team Providers Care Gas Plant Repairer Name Role Phone Luis E Narayan MD Primary Care Provider Reason for Referral * Diagnostic Test (Routine) - Closed Specialty Diagnoses / Procedures Referred By Contac t Referred To Contact Radiology Diagnoses Malignant melanoma of conjunctiva, left Procedures CT Neck Soft Tissue w Contrast (Generic) Arturo Cordero MD [facility] [address] [place] [address] [facility] [place] [address] Referral ID Status Reason Start Date Expiration Date V isits Requested Visits Authorized [id number] Closed Specialty Service Requested 09/15/2020 03/18/2022 1 1 * Diagnostic Test (Routine) - Closed Specialty Diagnoses / Procedures Referred By Contac t Referred To Contact Radiology Diagnoses Malignant melanoma of conjunctiva, left Procedures CT Chest Abdomen Pelvis w Contrast (Generic) Arturo Cordero MD [facility] [address] [place] [address] [facility] [place] [address] Referral ID Status Reason Start Date Expiration Date V isits Requested Visits Authorized [id number] Closed Specialty Service Requested 09/15/2020 03/18/2022 1 1 Reason for Visit * Diagnostic Test (Routine) - Closed Specialty Diagnoses / Procedures Referred By Contac t Referred To Contact Radiology Diagnoses Malignant melanoma of conjunctiva, left Procedures CT Chest Abdomen Pelvis w Contrast (Generic) Arturo Cordero MD [facility] [address] [place] [address] [facility] [place] [address] Referral ID Status Reason Start Date Expiration Date V isits Requested Visits Authorized [id number] Closed Specialty Service Requested 09/15/2020 03/18/2022 1 1 Encounter Details Date Type Department Care Team (Latest Contact Info) Description 12/17/2020 12:17 PM EDT - 12/17/2020 12:28 PM EDT Hospital [place] [address] Arturo Cordero MD [facility] [address] [place] [address] Malignant melanoma of conjunctiva, left [...] mg by mouth daily. FreeStyle Sanjana 2 [place] MiscIndications:diabete s mellitus 1 each by Other [...] 09/15/2020 09/19/2023 fluticasone propionate (FLONASE) 50 mcg/actuation [place], Suspension 1 spray by Each Nare route [...] Center at [facility] [address] [place] [address] Denisse Hardwick, [facility] 03/20/2024 2:00 PM EDT Clinical Support Family Medicine at [facility] [address] [place] [address] Julia Low, [facility] 05/01/2024 11:20 AM EDT Appointment Mammography/DXA at [place] [phone] Rodney Padilla MD [address] [place] [address] 05/01/2024 1:45 PM EDT Office Visit Ophthalmology at [place] [phone] Juanpablo Hernandez MD [facility] [place] [address] 01/30/2025 1:30 PM EDT Appointment Hematology [place] [address] 01/30/2025 3:[address] Scan at [place] [phone] Arturo Cordero MD [facility] [address] [place] [address] 01/30/2025 4:15 PM EDT Office Visit Hematology and Oncology at [place] [phone] Arturo Cordero MD [facility] DR [place] [address] documented as of this encounter Procedures Procedure Name Priority Date/Time Associated Diagnosis Comments CT CHEST ABDOMEN PELVIS W CONTRAST (GENERIC) Routine 12/17/2020 2:50 PM EDT Malignant melanoma of conjunctiva, left CT NECK SOFT TISSUE W CONTRAST Routine 12/17/2020 2:50 PM EDT Malignant melanoma of conjunctiva, left documented in this encounter Results * CT Neck Soft Tissue w Contrast (Generic) (12/17/2020 2:50 PM EDT) Anatomical Region Laterality Modality Neck, Head Computed Tomogra phy 12/17/2020 3:00 PM EDT Impressions 12/18/2020 9:41 AM EDT Normal exam, specifically no metastatic disease within the neck. I have personally reviewed the image(s) and the resident's interpretation and agree with the findings, Clarisa Rajput MD at 12/18/2020 9:41 AM Thank you for letting us participate in the care of this patient. ??If you are a health care provider and have any questions regarding this report, please contact the number below. ??For patients who have questions please contact the health career and transition teacher that requested your imaging first. ? Narrative 12/18/2020 9:41 AM EDT EXAMINATION: CT NECK SOFT TISSUE W CONTRAST (GENERIC) CLINICAL HISTORY: Metastatic disease evaluation - Include more detail below left eye conjunctiva melanoma high risk rule out distant mets TECHNIQUE: CT neck performed after the intravenous administration of contrast. Administered 120.0 ml of OMNIPAQUE 350.00 mg/ml. COMPARISON: CT neck with contrast 06/12/2020 FINDINGS: No pathologically enlarged or abnormal lymph nodes. No enhancing masses. The parotid, submandibular and thyroid glands are unremarkable. The air digestive tract is unremarkable. Surrounding soft tissues are normal. Visualized paranasal sinuses are clear. Apical lungs are unremarkable. Normal cervical spinal alignment. Mild left facet arthropathy at C3-C4. Mild disc height loss from C6 through T3. No fracture. No suspicious osseous lesions. Partially visualized brain parenchyma is unremarkable. No enhancing masses within the partially visualized orbits. Procedure Note Clarisa Rajput MD - 12/18/2020 EXAMINATION: CT NECK SOFT TISSUE W CONTRAST (GENERIC) CLINICAL HISTORY: Metastatic disease evaluation - Include more detailbelow left eye conjunctiva melanoma high risk rule out distant mets TECHNIQUE: CT neck performed after the intravenous administration of contrast.Administered 120.0 ml of OMNIPAQUE 350.00 mg/ml. COMPARISON: CT neck with contrast 06/12/2020 FINDINGS: No pathologically enlarged or abnormal lymph nodes. No enhancing masses.The parotid, submandibular and thyroid glands are unremarkable. The airdigestive tract is unremarkable. Surrounding soft tissues are normal. Visualized paranasal sinuses are clear. Apical lungs are unremarkable. Normal cervical spinal alignment. Mild left facet arthropathy at C3-C4.Mild disc height loss from C6 through T3. No fracture. No suspicious osseous lesions. Partially visualized brain parenchyma is unremarkable. No enhancing masses within the partially visualized orbits. IMPRESSION Normal exam, specifically no metastatic disease within the neck. I have personally reviewed the image(s) and the resident's interpretationand agree with the findings, Clarisa Rajput MD at 12/18/2020 9:41 AM Thank you for letting us participate in the care of this patient. If youare a health care provider and have any questions regarding this report,please contact the number below. For patients who have questions please contactthe health career and transition teacher that requested your imaging first. Arturo Cordero MD IMG CT ORDERABLES * CT Chest Abdomen Pelvis w Contrast (Generic) (12/17/2020 2:50 PM EDT) Anatomical Region Laterality Modality Abdomen, Pelvis Computed Tomogra phy Impressions 12/17/2020 4:53 PM EDT Stable exam. No evidence of disease recurrence. Thank you for letting us participate in the care of this patient. ??If you are a health care provider and have any questions regarding this report, please contact the number below. ??For patients who have questions please contact the health career and transition teacher that requested your imaging first. ? Narrative 12/17/2020 4:53 PM EDT EXAMINATION: CT CHEST ABDOMEN PELVIS W CONTRAST (GENERIC) CLINICAL HISTORY: Metastatic disease evaluation - Include more detail below left eye conjunctiva melanoma high risk rule out distant mets TECHNIQUE: Helical CT of the chest, abdomen, and pelvis was performed following the intravenous administration of contrast. 120 cc of Omnipaque 350. Oral contrast was administered. COMPARISON: 06/12/2020 FINDINGS: Chest: Lungs and large airways: No pulmonary nodules. No areas of airspace consolidation. Pleura: No effusion. Heart/vasculature: Normal. Lymph nodes: No enlarged lymph nodes. Stable subcentimeter paratracheal and subcarinal lymph nodes. Mediastinum and bess: No adenopathy Abdomen/pelvis: Liver: Stable mild diffuse hepatic steatosis without hepatic lesions. Bile ducts: Nondilated. Gallbladder: No calcified gallstones. Normal caliber wall. Pancreas: Normal attenuation without ductal dilatation. Spleen: Normal. Adrenals: Stable small LEFT adrenal gland nodule which is low-attenuation and likely an adenoma. The RIGHT adrenal gland is normal. Kidneys: Symmetric enhancement. No collecting system obstruction bilaterally. Stable postoperative changes lower pole LEFT kidney. Urinary Bladder: Normal. Vasculature: No aneurysm. Lymph Nodes: ??No enlarged lymph nodes. Bowel: Nondilated, no wall thickening. ?? Peritoneum and mesentery: No ascites, free air, or loculated fluid collection. No mesenteric inflammation. Abdominal wall: Small fat-containing RIGHT inguinal hernia Reproductive organs: Normal. Osseous structures: No suspicious lesions. Procedure Note Juanpablo Chris MD - 12/17/2020 EXAMINATION: CT CHEST ABDOMEN PELVIS W CONTRAST (GENERIC) CLINICAL HISTORY: Metastatic disease evaluation - Include more detailbelow left eye conjunctiva melanoma high risk rule out distant mets TECHNIQUE: Helical CT of the chest, abdomen, and pelvis was performedfollowing the intravenous administration of contrast. 120 cc of Omnipaque 350.Oral contrast was administered. COMPARISON: 06/12/2020 FINDINGS: Chest: Lungs and large airways: No pulmonary nodules. No areas of airspace consolidation. Pleura: No effusion. Heart/vasculature: Normal. Lymph nodes: No enlarged lymph nodes. Stable subcentimeter paratrachealand subcarinal lymph nodes. Mediastinum and bess: No adenopathy Abdomen/pelvis: Liver: Stable mild diffuse hepatic steatosis without hepatic lesions. Bile ducts: Nondilated. Gallbladder: No calcified gallstones. Normal caliber wall. Pancreas: Normal attenuation without ductal dilatation. Spleen: Normal. Adrenals: Stable small LEFT adrenal gland nodule which is low-attenuationand likely an adenoma. The RIGHT adrenal gland is normal. Kidneys: Symmetric enhancement. No collecting system obstructionbilaterally. Stable postoperative changes lower pole LEFT kidney. Urinary Bladder: Normal. Vasculature: No aneurysm. Lymph Nodes: No enlarged lymph nodes. Bowel: Nondilated, no wall thickening. Peritoneum and mesentery: No ascites, free air, or loculated fluidcollection. No mesenteric inflammation. Abdominal wall: Small fat-containing RIGHT inguinal hernia Reproductive organs: Normal. Osseous structures: No suspicious lesions. IMPRESSION Stable exam. No evidence of disease recurrence. Thank you for letting us participate in the care of this patient. If youare a health care provider and have any questions regarding this report,please contact the number below. For patients who have questions please contactthe health career and transition teacher that requested your imaging first. Arturo Cordero MD IM CT ORDERABLES documented in this encounter Visit Diagnoses Diagnosis Malignant melanoma of conjunctiva, left documented in this encounter Administered Medications Inactive Administered Medications - up to 3 most recent administrations Medication Order MAR Action Action Date Dose Rate Site iohexoL (Omnipaque) (350 mg/mL) injection solution 0-200 mL 0-200 mL, Intravenous, ONCE PRN, 1 dose, Starting on Carolee 12/17/20 at 1425, Until Carolee 12/17/20 at 1437, Per Protocol, Warning Vesicant/Irritant Medication , Radiology Contrast, Routine Given 12/17/2020 2:37 PM EDT 120 mLs iohexoL (Omnipaque) (350 mg/mL) injection solution 0-50 mL 0-50 mL, Oral, ONCE PRN, 1 dose, Starting on Carolee 12/17/20 at 1425, Until Carolee 12/17/20 at 1437, Per Protocol, Warning Vesicant/Irritant Medication , Radiology Contrast, Routine Given 12/17/2020 2:37 PM EDT 50 mLs documented in this encounter Care Teams Gas Plant Repairer Relationship Specialty Start Date End Date Luis E Narayan MD [facility] [address] [facility] [place] [address] PCP - General Family Medicine 03/26/19 01/19/22 documented as of this encounter
--- OUTSIDE RECORDS SUMMARY | 2024-03-04 21:24 | XMS_ITS | Encounter Summary ---
Author Organization [facility] [place] [address] Care Team Providers Care Clinical Research Assistant Name Role Phone Luis E Narayan MD Primary Care Provider [phone] Encounter Details Date Type Department Care Team (Late st Contact Info) Description 03/19/2021 10:52 AM EDT - 03/19/2021 11:59 PM EDT Hospital Encounter [place] [address] Leandra Black, [facility] DR [place] [address] Malignant melanoma of conjunctiva, left Discharge Disposition: [...] slept in a mcc (including now)? No 02/03/2021 Sex and Gender [...] (E.C.) Take 81 mg by mouth daily. metoprolol succinate XL (Toprol XL) 25 mg [...] (Gas Relief 80, simethicone,) 80 mg Tablet, ChewableIndications:Blo ating Take 1 tablet by mouth every 6 hours as needed for Flatulence. 30 tablet 3 02/03/2021 06/16/2022 metFORMIN (GLUCOPHAGE) 1,000 mg TabletIndications:Type 2 diabetes mellitus with hyperglycemia, without long-term current use of insulin Take 1 tablet by mouth 2 times daily (with meals). 180 tablet 1 01/08/2021 08/02/2021 FreeStyle Sanjana 2 [place] MiscIndications:diabete s mellitus 1 each by Other [...] 09/15/2020 09/19/2023 fluticasone propionate (FLONASE) 50 mcg/actuation [place], Suspension 1 spray by Each Nare route 2 times daily. 16 g 11 08/04/2020 09/07/2021 nicotine (NICOTROL) 10 mg CartridgeIndications:En counter for [...] Center at [facility] [address] [place] [address] Denisse Hardwick, [facility] 03/20/2024 2:00 PM EDT Clinical Support Family Medicine at [facility] [address] [place] [address] Julia Low, [facility] 05/01/2024 11:20 AM EDT Appointment Mammography/[place] [address] Rodney Padilla MD [address] [place] [address] 05/01/2024 1:45 PM EDT Office Visit Ophthalmology at [place] [phone] [facility] [place] [address] 01/30/2025 1:30 PM EDT Appointment Hematology [place] [address] 01/30/2025 3:[address] [place] [address] [facility] [place] [address] 01/30/2025 4:15 PM EDT Office Visit Hematology [place] [address] [facility] [place] [address] documented as of this encounter Procedures Procedure Name Priority Date/Time Associated Diagnosis Comments US SOFT TISSUE HEAD OR NECK Routine 03/19/2021 11:03 AM EDT Malignant melanoma of conjunctiva, left documented in this encounter Results * US Soft Tissue Head Or Neck (03/19/2021 11:03 AM EDT) Anatomical Region Laterality Modality Ultrasound 03/19/2021 10:5 4 AM EDT Impressions 03/19/2021 12:13 PM EDT ?? Comparison 09/15/2020 Lymph nodes visualized in the left cervical region demonstrate normal morphology. No suspicious findings. Thank you for letting us participate in the care of this patient. If you are a health care provider and have any questions regarding this report, please contact the number above. For patients who have questions, please contact the health hourly caregiver that requested your imaging first. ?Faina Hernadez, Staff Physician Electronically Signed Final Report ?? 03/19/2021 12:13 pm Narrative 03/19/2021 12:13 PM EDT Ultrasound Soft Tissue ?(Signed Final 03/19/2021 12:13 pm) Neck or Head Report PATIENT INFO: ID #: ? [id number] ?: ??[birth year] (60 yrs)(F) Name: ? PATIENCE MANJARREZ ? Visit Date: 03/19/2021 10:54 am PERFORMED BY: Performed By: ? Tonia Lopes RDMS Attending: ?Favio COLVINFaina Referred By: ?LEANDRA BLACK Location: ? [place] SERVICE(S) PROVIDED: USTN - Soft Tissue Neck or Head - [id number] ? [id number] INDICATIONS: History of left eye conjunctival melanoma [...] or Head Report PATIENT INFO: ID #: [id number] : 58 (60 yrs)(F) Name: PATIENCE MANJARREZ Visit Date: 03/19/2021 10:54 am PERFORMED BY: Performed By: Tonia Lopes RDMS Attending: Faina Stahl MD Referred By: LEANDRA BLACK Location: [place] SERVICE(S) PROVIDED: USTN - Soft Tissue Neck or Head - [id number] INDICATIONS: History of left eye conjunctival melanoma s/p resection, [facility] of left neck [place] COMPARISON: Us 09/15/20 --------- FINDINGS: --------- Title: Ultrasound Soft Tissue Neck or Head Report Findings: Normal appearing lymph nodes largest measuring 2.2 x 0.6 x 1.1 cm IMPRESSION Comparison 09/15/2020 Lymph nodes visualized in the left cervical region demonstrate normal morphology. No suspicious findings. Thank you for letting us participate in the care of this patient. If you are a health care provider and have any questions regarding this report, please contact the number above. For patients who have questions, please contact the health hourly caregiver that requested your imaging first. [facility], Staff Physician Electronically Signed Final Report 03/19/2021 12:13 pm Leandra Black APRN IMG US GEN ORDERAB LES documented in this encounter Visit Diagnoses Diagnosis Malignant melanoma of conjunctiva, left documented in this encounter Care Teams Clinical Research Assistant Relationship Specialty Start Date End Date Luis E Narayan MD [facility] [place] [address] PCP - General Family Medicine 03/26/19 01/19/22 documented as of this encounter
--- OUTSIDE RECORDS SUMMARY | 2024-03-04 21:24 | XMS_ITS | Encounter Summary ---
Author Organization [facility] Address [facility] [place] [address] Care Team Providers Care Drug Counselor Name Role Phone Luis E Narayan MD Primary Care Provider [phone] Reason for Visit * Reason Onset Date Comments Medication Refill 05/05/2021 Encounter Details Date Type Department Care Team (Late st Contact Info) Description 05/05/2021 Refill Family Medicine at [facility] [address] [place] [address] Luis E Narayan MD [facility] [address] LIL[address] [place] [address] Essential hypertension Social History Tobacco Use Types [...] slept in a residential (including now)? No 02/03/2021 Sex and Gender Information Value Date Recorded Sex Assigned at Not on file Gender Identity Not on file Sexual Orientation Not on file documented as of this encounter Plan of Treatment Upcoming Encounters Date Type Department Care Team (Late st Contact Info) Description 03/20/2024 9:00 AM EDT TH Visit (TeleHealth) Sleep Center at [facility] [address] [place] [address] Denisse Hardwick, TRAVEL SERVICE CONSULTANT [facility] 03/20/2024 2:00 PM EDT Clinical Support Family Medicine at [facility] [address] [place] [address] Julia Low [facility] 05/01/2024 11:20 AM EDT Appointment Mammography/[place] [phone] Rodney Padilla MD [address] [place] [address] 05/01/2024 1:45 PM EDT Office Visit Ophthalmology at [place] [phone] Juanpablo Hernandez MD [facility] [place] [address] 01/30/2025 1:30 PM EDT Appointment Hematology and Oncology at [place] [address] 01/30/2025 3:[address] Scan [place] [address] Arturo Cordero MD [facility] [place] [address] 01/30/2025 4:15 PM EDT Office Visit Hematology and Oncology at [place] [phone] Arturo Cordero MD [facility] [address] HEMATOLOGY [place] [address] documented as of this encounter Visit Diagnoses Diagnosis Essential hypertension Unspecified essential hypertension documented in this encounter Care Teams Drug Counselor Relationship Specialty Start Date End Date Luis E Narayan MD [facility] [address] [place] [address] PCP - General Family Medicine 03/26/19 01/19/22 documented as of this encounter
--- OUTSIDE RECORDS SUMMARY | 2024-03-04 21:24 | XMS_ITS | Encounter Summary ---
Author Organization [place] [address] Care Team Providers Care Spiritual Advisor Name Role Phone Luis E Narayan MD Primary Care Provider [phone] Reason for Visit * Reason Onset Date Comments Appointment 01/25/2021 Encounter Details Date Type Department Care Team (Late st Contact Info) Description 01/25/2021 [place] [address] Juanpablo Hernandez MD [facility] [place] [address] Appointment Social History Tobacco Use Types Packs/Day [...] slept in a long-term (including now)? No 02/03/2021 Sex and Gender Information Value Date Recorded Sex Assigned at Not on file Gender Identity Not on file Sexual Orientation Not on file documented as of this encounter Miscellaneous Notes * Telephone Encounter - Chantell Dukes - 02/09/2021 2:58 PM EDT LMOAM x 2 to schedule: ? Return in about 4 months (around 05/23/2021) for CEE also set up 8 and 12 month appts. Letter Sent * Telephone Encounter - Chantell Dukes - 01/25/2021 12:36 PM EDT LMOAM x 1 to schedule: Return in about 4 months (around 05/23/2021) for CEE also set up 8 and 12 month appts documented in this encounter Plan of Treatment Upcoming Encounters Date Type Department Care Team (Late st Contact Info) Description 03/20/2024 9:00 AM EDT TH Visit (TeleHealth) Sleep Center at [facility] [address] [place] [phone] Denisse Hardwick, DIRECTOR OF CARDIAC CATH LAB SLEEP CENTER 03/20/2024 2:00 PM EDT Clinical Support Family Medicine at [facility] [address] [place] [phone] Julia Low, LTAC, [facility]IN [facility] 05/01/2024 11:20 AM EDT Appointment Mammography/DXA at [place] [phone] Rodney Padilla MD [address] [place] [address] 05/01/2024 1:45 PM EDT Office Visit Ophthalmology at [place] [phone] Juanpablo Hernandez MD [facility] [place] [address] 01/30/2025 1:30 PM EDT Appointment Hematology and Oncology at [place] [phone] 01/30/2025 3:[address] Scan at [place] [phone] Arturo Cordero MD [facility] DR HEMATOLOGY [place] [address] 01/30/2025 4:15 PM EDT Office Visit [place]ology [place] [address] Arturo Cordero MD [facility] DR HEMATOLOG[place] [address] documented as of this encounter Visit Diagnoses Not on filedocumented in this encounter Care Teams Spiritual Advisor Relationship Specialty Start Date End Date Luis E Narayan MD [facility] [address] [place] [address] PCP - General Family Medicine 03/26/19 01/19/22 documented as of this encounter
--- OUTSIDE RECORDS SUMMARY | 2024-03-04 21:25 | XMS_ITS | Encounter Summary ---
Author Organization [facility] [place] [address] Care Team Providers Care Equipment Operator/Laborer/Supervisor Name Role Phone Luis E Narayan MD Primary Care Provider Encounter Details Date Type Department Care Team (Late st Contact Info) Description 08/17/2020 Notes Only Hematology [place] [address] Boogie Munroe MD [facility] DR HEMATOLOGY/[place] [address] Social History Tobacco Use Types Packs/Day Years Used Date Smoking Tobacco: Every Day Cigarettes 1 40 Smokeless Tobacco: Never Comments:Not today. Very anx ious Alcohol Use Standard Drinks/Week Comments No 0 (1 standard drink = 0.6 oz pur e alcohol) Sex and Gender Information Value Date Recorded Sex Assigned at Not on file Gender Identity Not on file Sexual Orientation Not on file documented as of this encounter Progress Notes * Boogie Munroe MD - 08/17/2020 9:31 AM EST I have reviewed the patient's record and given personal and/or family history of cancer she should be seen by genetic counselor. This is scheduled for later this week. documented in this encounter Plan of Treatment Upcoming Encounters Date Type Department Care Team (Late st Contact Info) Description 03/20/2024 9:00 AM EDT TH Visit (TeleHealth) Sleep Center at [facility] [address] [place] [address] Denisse Hardwick, [facility] 03/20/2024 2:00 PM EDT Clinical Support Family Medicine at [facility] [address] [place] [address] Julia Low, [facility] 05/01/2024 11:20 AM EDT Appointment Mammography/[place] [address] Rodney Padilla MD [address] [facility] MEDIC[facility] [place], [place] [phone] 05/01/2024 1:45 PM EDT Office Visit Ophthalmology at [place] [phone] Juanpablo Hernandez MD [facility] [place] [address] 01/30/2025 1:30 PM EDT Appointment Hematology and Oncology at [place] [phone] 01/30/2025 3:[address] Scan at [place] [phone] Arturo Cordero MD [facility] [place] [address] 01/30/2025 4:15 PM EDT Office Visit Hematology [place] [address] Arturo Cordero MD [facility] [place] [address] documented as of this encounter Visit Diagnoses Not on filedocumented in this encounter Care Teams Equipment Operator/Laborer/Supervisor Relationship Specialty Start Date End Date Luis E Narayan MD [facility] [address] [place] [address] PCP - General Family Medicine 03/26/19 01/19/22 documented as of this encounter
--- OUTSIDE RECORDS SUMMARY | 2024-03-04 21:25 | XMS_ITS | Encounter Summary ---
Author Organization [facility] Address [facility] [place] [address] Care Team Providers Care Rubble Placer Name Role Phone Luis E Narayan MD Primary Care Provider Reason for Visit * Reason Comments Tearing Encounter Details Date Type Department Care Team (Late st Contact Info) Description 09/15/2020 3:00 PM EST Office [place] [address] Juanpablo Hernandez MD [facility] [place] [address] Malignant melanoma of conjunctiva, left; Keratitis Social History Tobacco Use Types Packs/Day Years [...] slept in a long-term (including now)? No 09/15/2020 Sex and Gender Information Value Date Recorded Sex Assigned at Not on file Gender Identity Not on file Sexual Orientation Not on file documented as of this encounter Progress Notes * Juanpablo Hernandez MD - 09/15/2020 3:00 PM EST Images from the original note were not included. Encounter Diagnoses Name Primary? Malignant melanoma of conjunctiva, left ??? Keratitis Alize Gramajo is a 59 y.o. with the following ophthalmic problems: Melanoma [...] eye) qid MMC 0.04% x 1 wk Upper punctal plug OS, Lower plug in place. Eye is MUCH more inflamed today with some limbal and conj epi defects. Long discussion with Alize and her daughter Christine about replacement of plug and continuation of last 3 days of MMC. They collectively elect to stop MMC at this time given completion of more than 2 cycles and ocular surface toxicity. Pre op photo Mild cataract: 20/20 ou NIDDM with A1C of 6.9: no retinopathy seen Current smoker but denies orthopnea, Clear cell renal cell carcinoma Plan: - as above - Follow up 2wk or as needed - Findings and concerns discussed with Alize and she expressed understanding. -Upon Return IOP MR if vision down by 2 lines compared to last visit documented in this encounter Plan of Treatment Upcoming Encounters Date Type Department Care Team (Late st Contact Info) Description 03/20/2024 9:00 AM EDT TH Visit (TeleHealth) Sleep Center at [facility] [address] [place] [address] Denisse Hardwick, [facility] 03/20/2024 2:00 PM EDT Clinical Support Family Medicine at [facility] [address] [place] [address] Julia Low, [facility] 05/01/2024 11:20 AM EDT Appointment Mammography/[place] [address] Rodney Padilla MD [address] [facility] [place], [place] [phone] 05/01/2024 1:45 PM EDT Office [place] [address] Juanpablo Hernandez MD [facility] [place] [address] 01/30/2025 1:30 PM EDT Appointment Hematology [place] [address] 01/30/2025 3:[address] [place] [address] Arturo Cordero MD [facility] [place] [address] 01/30/2025 4:15 PM EDT Office Visit Hematology [place] [address] Arturo Cordero MD [facility] [place] [address] documented as of this encounter Visit Diagnoses Diagnosis Malignant melanoma of conjunctiva, left Keratitis Unspecified keratitis documented in this encounter Care Teams Rubble Placer Relationship Specialty Start Date End Date Luis E Narayan MD [facility] [address] [place] [address] PCP - General Family Medicine 03/26/19 01/19/22 documented as of this encounter
--- OUTSIDE RECORDS SUMMARY | 2024-03-04 21:25 | XMS_ITS | Encounter Summary ---
Author Organization [facility] [place] [address] Care Team Providers Care Warp Placer Name Role Phone Luis E Narayan MD Primary Care Provider [phone] Encounter Details Date Type Department Care Team (Late st Contact Info) Description 09/11/2020 Telephone Family Medicine at [facility] [address] [place] [address] Shannon Ward, RN Social History Tobacco Use [...] slept in a retirement (including now)? No 09/15/2020 Sex and Gender Information Value Date Recorded Sex Assigned at Not on file Gender Identity Not on file Sexual Orientation Not on file documented as of this encounter Miscellaneous Notes * Telephone Encounter - Shannon Ward RN - 09/11/2020 9:25 AM EST Caller: Alize Gramajo Patient identified by name and Chief complaint: chest pressure Onset: x 'last weekend' Description of symptoms: Pt describes a bloated feeling, sternal pressure that lasts through the day, can worsen as day progresses. Feels 'like she ate a large meal.' Denies CP/SOB/n/v/palpitatioons/radiating pain. Will have dizziness only when tilts head back for eye drops , or lays back on bed. Denies abd pain. BM's normal,last movement 09/10. Alleviating factors: antacid provides a big burp with temporary relief. Pertinent hx: DM, HTN,anxiety, Melanoma of conjunctiva , Obesity, TITO, COPD, CAD, L Renal mass 08/20/20 stress test ( no ischemia noted) and echo done to rule out cardiac concerns. Documents in Media. Telehealth screen: [x] Established patient [] Has access to Internet smart phone or computer with camera [] Would need phone visit Plan: [] Will review with PCP/COS and call patient back [] Appointment scheduled date: With: Patient reports any of the following NEW symptoms and is in need of urgent eval instruct to wear a mask [] Cough (non-productive) [] Shortness of breath or difficulty breathing [] Fatigue [] Fever/chills [] Muscle or body aches [] Sore throat [] Congestion or runny nose [] Headache [] New loss of sense of smell [] Nausea or vomiting [] Diarrhea [x] Advised to seek urgent care closer to pt's home [x] Advised to seek emergent care if worsening symptoms, CP/SOB [] Call 911. Home quarantine: Not indicated Home Care Instructions provided per: Pt prefers in clinic appt. No available in clinic appts.today so pt advised to go to urgent care near her home. [x] Roche Telephone Triage Protocols for Nurses 6th edition. [] Sotelo: Pediatric Telephone protocols edition Recommendations for worsening condition: ED Does the Patient agree and understand the instructions provided: Pt agrees to go to urgent care andhave records sent to this clinic Note routed to: Sylvain For review. documented in this encounter Plan of Treatment Upcoming Encounters Date Type Department Care Team (Late st Contact Info) Description 03/20/2024 9:00 AM EDT TH Visit (TeleHealth) Sleep Center at [facility] [address] [place] [address] Denisse Hardwick, ENVIRONMENTAL SERVICES MANAGER SLEEP CENTER 03/20/2024 2:00 PM EDT Clinical Support Family Medicine at [facility] [address] [place] [address] Julia Low [facility] 05/01/2024 11:20 AM EDT Appointment Mammography/[place] [address] Rodney Padilla MD [address] [facility] [place], [place] [id number] 05/01/2024 1:45 PM EDT Office Visit [place] [address] Juanpablo Hernandez MD [facility] [place] [address] 01/30/2025 1:30 PM EDT Appointment Hematology and Oncology at [place] [address] 01/30/2025 3:[address] [place] [address] Arturo Cordero MD [facility] [place] [address] 01/30/2025 4:15 PM EDT Office Visit Hematology and Oncology at [place] [phone] Arturo Cordero MD [facility] DR [place] [address] documented as of this encounter Visit Diagnoses Not on filedocumented in this encounter Care Teams Warp Placer Relationship Specialty Start Date End Date Luis E Narayan MD [facility] [address] [place] [address] PCP - General Family Medicine 03/26/19 01/19/22 documented as of this encounter
--- OUTSIDE RECORDS SUMMARY | 2024-03-04 21:25 | XMS_ITS | Encounter Summary ---
Author Organization [facility] Address [facility] [place] [address] Care Team Providers Care Filament Maker Name Role Phone Luis E Narayan MD Primary Care Provider [phone] Encounter Details Date Type Department Care Team (Latest Contact Info) Description 08/24/2020 6:00 PM EST TH Visit (TeleHealth) Family Medicine at [facility] [address] [place] [address] Earl Valdez MD [facility] [address] [address] Atypical chest pain Social History Tobacco Use Types Packs/Day Years [...] as of this encounter Progress Notes * Earl Valdez MD - 08/24/2020 6:00 PM EST Subjective: Patient was seen in an emergency room at [facility] on 08/17.This was for chest pressure. She had mild elevations in troponin but they were not progressive on serial recheck. Chest x-ray was negative. She was actually observed and then discharged from the emergency room and later in the week, on 08/20, she underwent an echocardiogram and an exercise EKG both of which were reassuring. She has had a cough without fever and suspects that perhaps this is just bronchitis. She says that she is not experiencing pain presently. She scheduled this appointment simply because she wanted to go over test results from last week. Decision Making/Plan: Chest pressure/cough. I reviewed the important tests that she underwent both in the emergency room and in the cardiac testing unit last week. It would seem that she was not having a cardiac etiology given that the echo and stress EKG are reassuring. I explained that if she is still having significant pain, then she should have an in person appointment for reevaluation and possible additional testing. However it does se em that this might just represent a simple bronchial infection and since she is feeling somewhat better, I think she can take a wait and see attitude. Follow-up if symptoms should worsen or if new symptoms appear. Patient verbally consents to this telephone visit and understands that this visit may be billed, similar to a clinic office visit. I provided care to the patient today via telephone call. The total time associated with this visit was 12 minutes. documented in this encounter Plan of Treatment Upcoming Encounters Date Type Department Care Team (Late st Contact Info) Description 03/20/2024 9:00 AM EDT TH Visit (TeleHealth) Sleep Center at [facility] [address] [place] [address] Denisse Hardwick, REGRINDER OPERATOR SLEEP CENTER 03/20/2024 2:00 PM EDT Clinical Support Family Medicine at [facility] [address] [place] [address] Julia Low [facility] 05/01/2024 11:20 AM EDT Appointment Mammography/[place] [address] Rodney Padilla MD [address] [place] [place] [address] 05/01/2024 1:45 PM EDT Office Visit Ophthalmology at [place] [phone] Juanpablo Hernandez MD [facility] [place] [address] 01/30/2025 1:30 PM EDT Appointment Hematology and Oncology at [place] [address] 01/30/2025 3:[address] Scan at [place] [address] Arturo Cordero MD [facility] [address] [place] [address] 01/30/2025 4:15 PM EDT Office Visit Hematology and Oncology at [place] [phone] Arturo Cordero MD [facility] DR [place] [address] documented as of this encounter Visit Diagnoses Diagnosis Atypical chest pain Other chest pain documented in this encounter Care Teams Filament Maker Relationship Specialty Start Date End Date Luis E Narayan MD [facility] [address] [place] [address] PCP - General Family Medicine 03/26/19 01/19/22 documented as of this encounter
--- OUTSIDE RECORDS SUMMARY | 2024-03-04 21:25 | XMS_ITS | Encounter Summary ---
Author Organization [facility] [place] [address] Care Team Providers Care Dross Puller Name Role Phone Luis E Narayan MD Primary Care Provider [phone] Reason for Visit * Reason Onset Date Comments Questions 08/18/2020 Encounter Details Date Type Department Care Team (Late st Contact Info) Description 08/18/2020 Telephone Family Medicine at [facility] [address] [place] [address] Susanna Lopes, CITY ASSESSOR Questions Social History Tobacco Use Types Packs/Day Years [...] slept in a custodial (including now)? No 09/15/2020 Sex and Gender Information Value Date Recorded Sex Assigned at Not on file Gender Identity Not on file Sexual Orientation Not on file documented as of this encounter Miscellaneous Notes * Telephone Encounter - Alejandra Posadas RN - 08/18/2020 11:39 AM EST Called patient. Advised that the plan is for her to get ECHO and stress test at [facility] done as outpatient Dr. Barbosa. Cardiology at will follow with these results. She will call [facility] to schedule this testing. * Telephone Encounter - Susanna Lopes LNA - 08/18/2020 11:24 AM EST Message: Patient is calling to speak with team regarding her recent visit to [facility]. Patient states she was supposed to be falling up with cardiology today but when she called was told they were unableto get her in. Patient is concerned as she feels like she needs to be seen. Please call back to further discuss. Ask caller their first and last name and relationship to the patient: Pt Best time to call back: Any Ok to leave a message: Y Ok to send my- message: N Offered Appointment: N MA/Nurse/[place] contacted via: Message: Y Call: N Pager: N documented in this encounter Plan of Treatment Upcoming Encounters Date Type Department Care Team (Late st Contact Info) Description 03/20/2024 9:00 AM EDT TH Visit (TeleHealth) Sleep Center at [facility] [address] [place] [address] Denisse Hardwick, [facility] 03/20/2024 2:00 PM EDT Clinical Support Family Medicine at [facility] [address] [place] [address] Julia Low, [facility] 05/01/2024 11:20 AM EDT Appointment Mammography/DXA at [place] [phone] Rodney Padilla MD [address] [facility] [place], [place] [address] 05/01/2024 1:45 PM EDT Office Visit Ophthalmology at [place] [phone] Juanpablo Hernandez MD [facility] [place] [address] 01/30/2025 1:30 PM EDT Appointment Hematology and Oncology at [place] [phone] 01/30/2025 3:[address] [place] [address] Arturo Cordero MD [facility] [place] [address] 01/30/2025 4:15 PM EDT Office Visit Hematology [place] [address] Arturo Cordero MD [facility] [place] [address] documented as of this encounter Visit Diagnoses Not on filedocumented in this encounter Care Teams Dross Puller Relationship Specialty Start Date End Date Luis E Narayan MD [facility] [address] [place] [address] PCP - General Family Medicine 03/26/19 01/19/22 documented as of this encounter
--- OUTSIDE RECORDS SUMMARY | 2024-03-04 21:25 | XMS_ITS | Encounter Summary ---
Author Organization [facility] Address [facility] [place] [address] Care Team Providers Care Keyboard Specialist Name Role Phone Rodney Padilla MD Primary Care Provider [phone] Reason for Visit * Reason Onset Date Comments Medication Refill 09/12/2020 Encounter Details Date Type Department Care Team (Late st Contact Info) Description 09/12/2020 Refill Family Medicine at [facility] [address] [place] [address] [facility] [place] [address] Social History Tobacco Use Types Packs/Day Years [...] in a senior living (including now)? No 09/15/2020 Sex and Gender [...] [facility] [address] [place] [address] Denisse Hardwick, MAJOR SALES ASSOCIATE SLEEP CENTER 03/20/2024 2:00 PM EDT Clinical Support Family Medicine at [facility] [address] [place] [address] Julia Low [facility] 05/01/2024 11:20 AM EDT Appointment Mammography/[place] [address] Rodney Padilla MD [address] [place] [place] [address] 05/01/2024 1:45 PM EDT Office Visit [place] [address] [facility] [place] [address] 01/30/2025 1:30 PM EDT Appointment Hematology and Oncology at [place] [address] 01/30/2025 3:[address] Scan [place] [address] [address] [facility] DR [place] [address] 01/30/2025 4:15 PM EDT Office Visit Hematology and Oncology at [place] [phone] [facility] DR [place] [address] documented as of this encounter Visit Diagnoses Not on filedocumented in this encounter Care Teams Keyboard Specialist Relationship Specialty Start Date End Date Rodney Padilla MD [address] [place] [address] PCP - General 07/18/22 documented as of this encounter
--- OUTSIDE RECORDS SUMMARY | 2024-03-04 21:25 | XMS_ITS | Encounter Summary ---
Author Organization [facility] Address [facility] [place] [address] Care Team Providers Care Paper Box Cutter Name Role Phone Luis E Narayan MD Primary Care Provider [phone] Encounter Details Date Type Department Care Team (Late Contact Info) Description 08/24/2020 Telephone Internal Medicine at [facility] [address] [place] [address] Debbie Brice, CCMA Social History Tobacco Use Types Packs/Day Years [...] encounter Miscellaneous Notes * Telephone Encounter - Debbie Brice - 08/24/2020 10:18 AM EST Called patient to go over the pre telehealth questions and to review allergies/medications/HM. Patient did not answer, left VM asking for a return call documented in this encounter Plan of Treatment Upcoming Encounters Date Type Department Care Team (Late st Contact Info) Description 03/20/2024 9:00 AM EDT TH Visit (TeleHealth) Sleep Center at [facility] [address] [place] [address] Denisse Hardwick, [facility] 03/20/2024 2:00 PM EDT Clinical Support Family Medicine at [facility] [address] [place] [address] Julia Low [facility] 05/01/2024 11:20 AM EDT Appointment Mammography/DXA at [place] [phone] Rodney Padilla MD [address] [place] [address] 05/01/2024 1:45 PM EDT Office Visit Ophthalmology at [place] [phone] Juanpablo Hernandez MD [facility] [place] [address] 01/30/2025 1:30 PM EDT Appointment Hematology and Oncology at [place] [phone] 01/30/2025 3:[address] Scan at [place] [phone] Arturo Cordero MD [facility] [place] [address] 01/30/2025 4:15 PM EDT Office Visit Hematology and Oncology at [place] [phone] Arturo Cordero MD [facility] [place] [address] documented as of this encounter Visit Diagnoses Not on filedocumented in this encounter Care Teams Paper Box Cutter Relationship Specialty Start Date End Date Luis E Narayan MD [facility] [address] [place] [address] PCP - General Family Medicine 03/26/19 01/19/22 documented as of this encounter
--- OUTSIDE RECORDS SUMMARY | 2024-03-04 21:25 | XMS_ITS | Encounter Summary ---
Author Organization [facility] [place] [address] Care Team Providers Care Coat Tailor Name Role Phone Luis E Narayan MD Primary Care Provider [phone] Encounter Details Date Type Department Care Team (Latest Contact Info) Description 09/15/2020 9:26 AM EST - 09/15/2020 11:59 PM EST Hospital [place] [address] Arturo Cordero MD [facility] [place] [address] Malignant melanoma of conjunctiva, left Discharge Disposition: [...] by mouth daily. 14 each 09/15/2020 09/19/2023 amoxicillin-clavulanate (Augmentin) 875-125 mg TabletIndications:Acute non-recurrent maxillary sinusitis Take 1 tablet by mouth 2 times daily. 20 tablet 09/15/2020 10/21/2020 fluticasone propionate (FLONASE) 50 mcg/actuation [place], Suspension 1 spray by Each Nare route [...] mouth daily. 90 tablet 3 06/23/2020 06/19/2021 moxifloxacin (VIGAMOX) 0.5 % DropsIndications:Conjun ctival tumor Place 1 drop into the left eye 3 times daily. 3 mL 1 06/11/2020 09/30/2020 prednisoLONE acetate (Pred Forte) 1 % Drops, SuspensionIndications:C onjunctival tumor Place 1 drop into the left eye 4 times daily. 5 mL 06/02/2020 09/30/2020 amLODIPine (Norvasc) 5 mg TabletIndications:Essen tial hypertension [...] See Admin Instructions. 30 tablet 04/09/2019 07/05/2021 ALBUTEROL SULFATE (PROVENTIL HFA INHL) 07/14/2010 021 documented as of this encounter Plan of Treatment Upcoming Encounters Date Type Department Care Team (Late st Contact Info) Description 03/20/2024 9:00 AM EDT TH Visit (TeleHealth) Sleep Center at [facility] [address] [place] [address] Denisse Hardwick, [facility] 03/20/2024 2:00 PM EDT Clinical Support Family Medicine at [facility] [address] [address] Julia Low [facility] 05/01/2024 11:20 AM EDT Appointment Mammography/[place] [phone] Rodney Padilla MD [address] [place] [place] [address] 05/01/2024 1:45 PM EDT Office Visit Ophthalmology at [place] [phone] Juanpablo Hernandez MD [facility] [place] [address] 01/30/2025 1:30 PM EDT Appointment Hematology and Oncology at [address] 01/30/2025 3:[address] Scan at [address] Arturo Cordero MD [facility] [address] [place] [address] 01/30/2025 4:15 PM EDT Office Visit Hematology and Oncology at [place] [phone] Arturo Cordero MD [facility] [place] [address] documented as of this encounter Procedures Procedure Name Priority Date/Time Associated Diagnosis Comments US SOFT TISSUE HEAD OR NECK Routine 09/15/2020 9:46 AM EST Malignant melanoma of conjunctiva, left documented in this encounter Results * US Soft Tissue Head Or Neck (09/15/2020 9:46 AM EST) Anatomical Region Laterality Modality Ultrasound 09/15/2020 9:42 AM EST Impressions 09/15/2020 10:01 AM EST No sonographically evident morphologically abnormal lymph nodes identified in the imaged left neck. Thank you for letting us participate in the care of this patient. For questions regarding this report, please contact the number below. ? Nakia Goetz, Staff Physician Electronically Signed Final Report ?? 09/15/2020 10:01 am Narrative 09/15/2020 10:01 AM EST Ultrasound Soft Tissue ?(Signed Final 09/15/2020 10:01 am) Neck or Head Report -Left Neck PATIENT INFO: ID #: ? [id number] ?: ??[birth year] (59 yrs)(F) Name: ? PATIENCE Chelsea MANJARREZ ? Visit Date: 09/15/2020 09:42 am PERFORMED BY: Performed By: ? Kaela Bruno RDMS Attending: ?Sofy COLVIN, Nakia Andrade Ref[facility]: [facility] Location: ? [place] SERVICE(S) PROVIDED: USTN - Soft Tissue Neck or Head - [id number] ? [id number] INDICATIONS: History of left eye conjunctival melanoma s/p resection, [facility] imaging of left neck [place] COMPARISON: CT neck 06/12/20 --------- FINDINGS: --------- Title: ? Ultrasound Soft Tissue Neck or Head Report -Left ?Neck Findings: ?Multiple normal appearing lymph nodes with fatty ?bess seen in left neck ..The largest measures 1.8 x ?0.5 x 0.7 cm. Procedure Note Nakia Goetz MD - 09/15/2020 Ultrasound Soft Tissue (Signed Final 09/15/2020 10:01 am) Neck or Head Report -Left Neck PATIENT INFO: ID #: [id number] : 58 (59 yrs)(F) Name: PATIENCE MANJARREZ Visit Date: 09/15/2020 09:42 am PERFORMED BY: Performed By: Kaela Bruno RDMS Attending: Nakia Goetz MD Referred By: ARTURO CORDERO Location: [place] SERVICE(S) PROVIDED: USTN - Soft Tissue Neck or Head - [id number] INDICATIONS: History of left eye conjunctival melanoma s/p resection, [facility] imaging of left neck [place] COMPARISON: CT neck 06/12/20 --------- FINDINGS: --------- Title: Ultrasound Soft Tissue Neck or Head Report -Left Neck Findings: Multiple normal appearing lymph nodes with fatty bess seen in left neck ..The largest measures 1.8 x 0.5 x 0.7 cm. IMPRESSION No sonographically evident morphologically abnormal lymph nodes identified in the imaged left neck. Thank you for letting us participate in the care of this patient. For questions regarding this report, please contact the number below. Electronically signed by: Nakia Goetz MD, [facility] ([phone]), at 09/15/2020 9:54 AM Nakia Goetz, Staff Physician Electronically Signed Final Report 09/15/2020 10:01 am Arturo Cordeor MD IMG US GEN ORDERABLE S documented in this encounter Visit Diagnoses Diagnosis Malignant melanoma of conjunctiva, left documented in this encounter Care Teams Coat Tailor Relationship Specialty Start Date End Date Luis E Narayan MD [facility] [address] [place] [address] PCP - General Family Medicine 03/26/19 01/19/22 documented as of this encounter
--- OUTSIDE RECORDS SUMMARY | 2024-03-04 21:25 | XMS_ITS | Encounter Summary ---
Author Organization [facility] Address [facility] [place] [address] Care Team Providers Care Automation Qtp Tester Name Role Phone Luis E Narayan MD Primary Care Provider [phone] Reason for Visit * Reason Comments Follow-up Encounter Details Date Type Department Care Team (Late st Contact Info) Description 09/15/2020 1:30 PM EST Office Visit Internal Medicine at [facility] [address] [place] [address] Alejandra Corey MD [facility] [place] [address] Acute URI; Acute non-recurrent maxillary sinusitis; Constipation, unspecified constipation type Social History Tobacco Use Types Packs/Day Years [...] in a care home (including now)? No 09/15/2020 Sex and Gender [...] - Inhaled Oxygen Concentration - - Weight 113.3 kg (249 lb 11.2 oz) 09/15/2020 1:32 PM EST Height - - Body Mass Index 44.52 09/15/2020 10:34 AM EST documented in this encounter Patient Instructions * Patient Instructions* Alejandra Corey MD - 09/15/2020 1:30 PM EST Images from the original note were not included. Patient Education Jose L Maneuver for Vertigo: Exercises Introduction The Jose L maneuver is a series of movements your doctor may use to treat your vertigo. Here are thesteps for the exercises. Your doctor or physical therapist will guide you through the movements. A single 10- to 15-minute session often is all that's needed. Crystal debris (canaliths) cause the vertigo. When your head is moved into different positions, the debris moves freely. This may cause your symptoms to stop. How to do the exercises Step 1 1. You will sit on the doctor's exam table. Your legs will be out in front of you. The doctor or physical therapist will turn your head so that it is [facility] between looking straight ahead and looking to the side that causes the worst vertigo. 2. Without changing your head position, he or she will guide you back quickly. Your shoulders will be on the table. Your head will hang over the edge of the table. At this point, the side of your head that is causing the worst vertigo will face the floor. You'll stay in this position for 30 secondsor until your symptoms stop. Step 2 1. Then, the doctor or physical therapist will turn your head to the other side. You don't need to lift your head. The other side of your head will face the floor. You will stay in this position for 30 seconds or until your symptoms stop. Step 3 1. The doctor or physical therapist will help you roll your body in the same direction that your head is facing. You will lie on your side. (For example, if you are looking to your right, you will roll onto your right side.) The side that causes the worst symptoms should be facing up. You'll stay in this position for another 30 seconds or until your symptoms stop. Step 4 1. The doctor or physical therapist will then help you to sit back up. Your legs will hang off the table on the same side that you were facing. Follow-up care is a smith part of your treatment and safety. Be sure to make and go to all appointments, and call your doctor if you are having problems. It's also a good idea to know your test resultsand keep a list of the medicines you take. Where can you learn more? Visit our [place] information library at [email or web address] You can also view health information on [employer], your personal patient account. Log in or sign uptoday. Enter A855 in the search box to learn more about Jose L Maneuver for Vertigo: Exercises. Current as of: October 23, 2019?Content Version: 12.7 ?? [id number] Healthwise, Incorporated. Care instructions adapted under license by [facility]. If you have questions about a medical condition or this instruction, always ask your healthcare professional. [employer] disclaims any warranty or liability for your use of this information. Patient Education Benign Paroxysmal Positional Vertigo (BPPV): Care Instructions Your Care Instructions Benign paroxysmal positional vertigo, also called BPPV, is an inner ear problem. It causes a spinning or whirling sensation when you move your head. This sensation is called vertigo. The vertigo usually lasts for less than a minute. People often have vertigo spells for a few days or weeks. Then the vertigo goes away. But it may come back again. The vertigo may be mild, or it may be bad enough to cause unsteadiness, nausea, and vomiting. When you move, your inner ear sends messages to the brain. This helps you keep your balance. Vertigo can happen when debris builds up in the inner ear. The buildup can cause the inner ear to send thewrong message to the brain. Your doctor may move you in different positions to help your vertigo get better faster. This is called the Jose L maneuver. Your doctor may also prescribe medicines or exercises to help with your symptoms. Follow-up care is a smith part of your treatment and safety. Be sure to make and go to all appointments, and call your doctor if you are having problems. It's also a good idea to know your test resultsand keep a list of the medicines you take. How can you care for yourself at home? ?? If your doctor suggests that you do Munoz-Daroff exercises: ? Sit on the edge of a bed or sofa. Quickly lie down on the side that causes the worst vertigo. Lieon your side with your ear down. ? Stay in this position for at least 30 seconds or until the vertigo goes away. ? Sit up. If this causes vertigo, wait for it to stop. ? Repeat the procedure on the other side. ? Repeat this 10 times. Do these exercises 2 times a day until the vertigo is gone. When should you call for help? Call 911 anytime you think you may need emergency care. For example, call if: ? You have symptoms of a stroke. These may include: ? Sudden numbness, tingling, weakness, or loss of movement in your face, arm, or leg, especially ononly one side of your body. ? Sudden vision changes. ? Sudden trouble speaking. ? Sudden confusion or trouble understanding simple statements. ? Sudden problems with walking or balance. ? A sudden, severe headache that is different from past headaches. Call your doctor now or seek immediate medical care if: ? You have new or worse nausea and vomiting. ? You have new symptoms such as hearing loss or roaring in your ears. Watch closely for changes in your health, and be sure to contact your doctor if: ? You are not getting better as expected. ? Your vertigo gets worse. Where can you learn more? Visit our health information library at [email or web address] ID You can also view health information on [employer], your personal patient account. Log in or sign uptoday. Enter P372 in the search box to learn more about Benign Paroxysmal Positional Vertigo (BPPV): CareInstructions. Current as of: October 23, 2019?Content Version: 12.7 ?? [employer]. Care instructions adapted under license by [facility]. If you have questions about a medical condition or this instruction, always ask your healthcare professional. [employer] disclaims any warranty or liability for your use of this information. documented in this encounter Progress Notes * Alejandra Corey MD - 09/15/2020 1:30 PM EST Subjective: Patient ID: Alize Gramajo is a 59 y.o. female. HPI Chief Complaint Patient presents with ??? Follow-up Alize was recently seen in the the ED on 09/11 for a 1 week history of persistent, localized discomfort in the area of her xiphoid and abdominal bloating. Her pain was reproducible on exam, EKG was reassuring and troponin only mildly elevated (in setting of cardiac hx). Additionally had abdominal s eries which do not show evidence of obstruction. She was ultimately diagnosed with costochondritis and discharged with PRN laxatives for constipation. Today, the patient's chest discomfort has significantly improved. However she has ongoing dizzinessand sore throat, which has been occurring for the last several weeks. She describes developing a cold a few weeks ago. She had a strep test done at an outside hospital which was negative. Additionally has a right earache and significant sinus congestion. Denies cough, but has postnasal drip and runny nose. The dizziness is particularly when she lies back or rolls over in bed. Describes it to be asensation of the room spinning, without associated nausea. The dizzy spells last 3 to 4 minutes before self resolving. In regards to her abdominal discomfort, she has been taking Dulcolax with success; having a bowel movement this morning. Review of Systems Constitutional: Positive for fatigue. Negative for chills, diaphoresis and fever. HENT: Positive for congestion, ear pain, postnasal drip, rhinorrhea, sinus pressure, sinus pain andsore throat. Negative for ear discharge, hearing loss, tinnitus and trouble swallowing. Respiratory: Negative for cough, shortness of breath and wheezing. Cardiovascular: Negative for chest pain and palpitations. Gastrointestinal: Positive for abdominal pain (mild cramping) and constipation. Negative for diarrhea, nausea and vomiting. Genitourinary: Negative for difficulty urinating. Neurological: Positive for dizziness. Negative for weakness. Hematological: Negative for adenopathy. Objective: Wt 113.3 kg (249 lb 11.2 oz) BMI 44.52 kg/m?? PHQ-9 QUESTIONNAIRE SCORE ONLY (AMB) 01/27/2020 PHQ - 9 Score (Clinic) - PHQ - 9 Score (Patient) 16 (Moderately Severe Depression) Wt Readings from Last 3 Encounters: 09/15/20 113.3 kg (249 lb 11.2 oz) 09/15/20 113.6 kg (250 lb 8 oz) 09/11/20 113.4 kg (250 lb) Physical Exam Constitutional: General: She is not in acute distress. Appearance: Normal appearance. She is obese. HENT: Head: Normocephalic and atraumatic. Right Ear: Tympanic membrane, ear canal and external ear normal. Left Ear: Tympanic membrane, ear canal and external ear normal. Nose: Congestion and rhinorrhea present. Mouth/Throat: Mouth: Mucous membranes are moist. Pharynx: Oropharynx is clear. Posterior oropharyngeal erythema present. No oropharyngeal exudate. Eyes: Pupils: Pupils are equal, round, and reactive to light. Cardiovascular: Rate and Rhythm: Normal rate and regular rhythm. Pulses: Normal pulses. Heart sounds: No murmur. Pulmonary: Effort: Pulmonary effort is normal. No respiratory distress. Breath sounds: Wheezing (scattered) present. Chest: Chest wall: Tenderness (mild, xiphoid ) present. Abdominal: General: Bowel sounds are normal. There is distension. Palpations: Abdomen is soft. Tenderness: There is no abdominal tenderness. Musculoskeletal: Cervical back: Neck supple. No tenderness. Lymphadenopathy: Cervical: No cervical adenopathy. Skin: General: Skin is warm and dry. Neurological: General: No focal deficit present. Mental Status: She is alert. Psychiatric: Mood and Affect: Mood normal. Jose L Maneuver: Negative for nystagmus, but did reproduce symptoms of dizziness. Assessment and Plan: Alize was seen today for follow-up, after an ER visit where she is diagnosed with costochondritisand constipation. Since then she has ongoing sore throat sinus congestion and dizziness. Dizziness described to be positional, most concerning for vertigo. Barrington-Hallpike was negative for nystagmus, but did perform full Jose L as potential treatment. In terms of her upper respiratory symptoms, suspectURI with potential superimposed sinusitis. Symptoms have been ongoing for greater than 3 weeks. At this time will empirically treat with Augmentin x10 days, encourage saline irrigation, and continueduse of Flonase. Patient's constipation has improved with Dulcolax. Encourage regular use of MiraLAX as needed for continued constipation. Patient requesting prescription for MiraLAX, which was provided. Diagnoses and all orders for this visit: Acute URI Acute non-recurrent maxillary sinusitis - amoxicillin-clavulanate (Augmentin) 875-125 mg Tablet; Take 1 tablet by mouth 2 times daily. - Saline rinses - Flonase spray Constipation, unspecified constipation type - polyethylene glycoL (Miralax) 17 gram Powder in Packet; Take 17 g by mouth daily. * Bertha Maxwell MD - 09/15/2020 1:30 PM EST The case was discussed at the time of the visit or immediately after the visit. The assessment and plan were formulated in discussion with me and I agree with them as documented. I have reviewed the history, physical exam, assessment and plan with the resident. Major issues discussed today: Alize was seen in the ED earlier this month for pain in her mid epigastrum. Her pain was reproducible on exam and her cardiac work up was negative. The clinical impression was costochondritis and constipation. Today she reports feeling better. She does report 2-3 weeks of uri symptoms with sore throat. This was evaluated at [facility]. She has some associated vertigo and nausea. The episodes are < 5 minutes. PMH notable for ocular melanoma, currently taking chemotherapeutic Drops Dr. Corey's exam is notable for an elevated blood pressure. Her nares are with boggy turbinates, tender maxillary sinuses, no lymphadenopathy. Pulmonary exam notable for soft bilateral wheezes. URI >3 weeks, suspect sinusitis - augmentin for 10 days - saline irrigation and flonase Chronic constipation - rx for miralax documented in this encounter Plan of Treatment Upcoming Encounters Date Type Department Care Team (Late st Contact Info) Description 03/20/2024 9:00 AM EDT TH Visit (TeleHealth) Sleep Center at [facility] [address] [place] [address] Denisse Hardwick, [facility] 03/20/2024 2:00 PM EDT Clinical Support Family Medicine at [facility] [address] [place] [address] Julia Low, [facility] 05/01/2024 11:20 AM EDT Appointment Mammography/[place] [phone] Rodney Padilla MD [address] [place] [place] [address] 05/01/2024 1:45 PM EDT Office Visit Ophthalmology at [place] [phone] Juanpablo Hernandez MD [facility] [place] [address] 01/30/2025 1:30 PM EDT Appointment Hematology and Oncology at [place] [address] 01/30/2025 3:[address] Scan at [address] Arturo Cordero MD [facility] [place] [address] 01/30/2025 4:15 PM EDT Office Visit Hematology and Oncology at [place] [address] Arturo Cordero MD [facility] [place] [address] documented as of this encounter Visit Diagnoses Diagnosis Acute URI Acute upper respiratory infections of unspecified site Acute non-recurrent maxillary sinusitis Constipation, unspecified constipation type documented in this encounter Care Teams Automation Qtp Tester Relationship Specialty Start Date End Date Luis E Narayan MD [facility] [place] [address] [place] [address] PCP - General Family Medicine 03/26/19 01/19/22 documented as of this encounter
--- OUTSIDE RECORDS SUMMARY | 2024-03-04 21:25 | XMS_ITS | Encounter Summary ---
Author Organization [facility] Address [facility] [place] [address] Care Team Providers Care [employer]ospace Products Sales Engineer Name Role Phone Luis E Narayan MD Primary Care Provider [phone]- [phone] Reason for Visit * Reason Onset Date Comments Medication Refill 10/30/2020 Encounter Details Date Type Department Care Team (Late st Contact Info) Description 10/30/2020 Refill Internal Medicine at [facility] [address] [place] [address] Troy Moscoso PA [facility] [address] [place] [address] Chronic bilateral low back pain without sciatica Social History Tobacco Use Types Packs/Day Years [...] slept in a fpc (including now)? No 09/15/2020 Sex and Gender Information Value Date Recorded Sex Assigned at Not on file Gender Identity Not on file Sexual Orientation Not on file documented as of this encounter Miscellaneous Notes * Telephone Encounter - Alejandra Posadas RN - 10/30/2020 1:31 PM EDT Prescription Refill Request Prescription(s) Requested: Requested Prescriptions Pending Prescriptions Disp Refills ??? cyclobenzaprine (Flexeril) 5 mg Tablet 21 tablet 0 Sig: Take 1 tablet by mouth 3 times daily as needed for Muscle spasms. Date of Encounter in This Dept: 10/21/2020 Last Labs: Lab Results Component Value Date WBC 7.7 09/11/2020 HGB 13.7 09/11/2020 HCT 40.8 09/11/2020 PLATELET 371 (H) 09/11/2020 ALT 22 09/11/2020 AST 20 09/11/2020 NA 141 09/11/2020 K 4.3 09/11/2020 CL 103 09/11/2020 BUN 14 09/11/2020 CO2 25 09/11/2020 TSH 2.53 06/12/2020 GLUCFASTING 116 (H) 06/29/2019 HA1C 7.8 (H) 10/21/2020 MICROALBUR <3.0 06/21/2019 Date of Last Refill: 10/20 Date of Next Encounter in this Dept: Visit date not found documented in this encounter Plan of Treatment Upcoming Encounters Date Type Department Care Team (Late st Contact Info) Description 03/20/2024 9:00 AM EDT TH Visit (TeleHealth) Sleep Center at [facility] [address] [place] [phone] Denisse Hardwick, [facility] 03/20/2024 2:00 PM EDT Clinical Support Family Medicine at [facility] [address] [place] [phone] Julia Low, [facility] 05/01/2024 11:20 AM EDT Appointment Mammography/DXA at [place] [phone] Rodney Padilla MD [address] [facility] [place] [address] 05/01/2024 1:45 PM EDT Office [place] [phone] Juanpablo Hernandez MD [facility] [place] [address] 01/30/2025 1:30 PM EDT Appointment Hematology [place] [address] 01/30/2025 3:[address] [place] [address] Arturo Cordero MD [facility] [place] [address] 01/30/2025 4:15 PM EDT Office Visit Hematology [place] [address] Arturo Cordero MD [facility] [place] [address] documented as of this encounter Visit Diagnoses Diagnosis Chronic bilateral low back pain without sciatica documented in this encounter Care Teams [employer] Products Sales Engineer Relationship Specialty Start Date End Date Luis E Narayan MD [facility] [address] [place] [address] PCP - General Family Medicine 03/26/19 01/19/22 documented as of this encounter
--- OUTSIDE RECORDS SUMMARY | 2024-03-04 21:25 | XMS_ITS | Encounter Summary ---
Author Organization [facility] Address [facility] [place] [address] Care Team Providers Care Rn Placement Name Role Phone Rodney Padilla MD Primary Care Provider [phone]- [phone] Reason for Visit * Reason Onset Date Comments Medication Refill 09/12/2020 Encounter Details Date Type Department Care Team (Late st Contact Info) Description 09/12/2020 Refill Family Medicine at [facility] [address] [place] [address] Luis E Narayan MD [facility] [address] [place] [address] Social History Tobacco Use Types Packs/Day Years [...] slept in a snf (including now)? No 09/15/2020 Sex and Gender Information Value Date Recorded Sex Assigned at Not on file Gender Identity Not on file Sexual Orientation Not on file documented as of this encounter Plan of Treatment Upcoming Encounters Date Type Department Care Team (Late st Contact Info) Description 03/20/2024 9:00 AM EDT TH Visit (TeleHealth) Sleep Center at [facility] [address] [place] [phone] Denisse Hardwick, [facility] 03/20/2024 2:00 PM EDT Clinical Support Family Medicine at [facility] [address] [place] [phone] Julia Low [facility] 05/01/2024 11:20 AM EDT Appointment Mammography/[place] [address] Rodney Padilla MD [address] [place] [address] 05/01/2024 1:45 PM EDT Office Visit Ophthalmology at [place] [phone] Juanpablo Hernandez MD [facility] [place] [address] 01/30/2025 1:30 PM EDT Appointment Hematology and Oncology at [place] [address] 01/30/2025 3:[address] Scan at [place] [address] Arturo Cordero MD [facility] [address] [place] [address] 01/30/2025 4:15 PM EDT Office Visit Hematology and Oncology at [place] [phone] Arturo Cordero MD [facility] [address] [place] [address] documented as of this encounter Visit Diagnoses Not on filedocumented in this encounter Care Teams Rn Placement Relationship Specialty Start Date End Date Rodney Padilla MD [address] [place] [place] [address] PCP - General 07/18/22 documented as of this encounter
--- OUTSIDE RECORDS SUMMARY | 2024-03-04 21:25 | XMS_ITS | Encounter Summary ---
Author Organization [facility] [place] [address] Care Team Providers Care Spray Operator Name Role Phone Luis E Narayan MD Primary Care Provider [phone]- [phone] Encounter Details Date Type Department Care Team (Late st Contact Info) Description 08/17/2020 Telephone Cardiology at [address] [phone] Anthony Barbosa MD [facility] [place] [address] Social History Tobacco Use Types Packs/Day Years [...] encounter Miscellaneous Notes * Telephone Encounter - Anthony Barbosa MD - 08/17/2020 7:39 PM EST Images from the original note were not included. 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 Patient with a vague 2 week history of mild exertional SOB. Unclear but after she was told about her mild trop I elevation to 0.08, she noted that she may also be having mild exertional chest pain aswell. Notes that it is different from the prior anginal pain that she felt prior to her stent placement in 2007. ASA/plavix at home. Is currently asymptomatic. Pertinent Diagnostic Findings: HR 85, BP 158/99, 99% on RA WBC 7.2 Hgb 12.9 Cr 0.9 BNP 84 Trop I 0.08 --> 0.09 (ULN 0.06) Covid negative CXR - possibly showing a hazy opacity? 10/2007 Coronary Angiography: Dominance: Left Left Main The left main was normal. Left Anterior Descending There was mild diffuse disease of the mid segment of the left anterior descending artery (LAD). The LAD was large. Left Circumflex There was a 95% eccentric diffuse stenosis of the mid segment of the left circumflex artery (LCX). There was evidence of thrombus in this lesion. The LCX was large. Distal flow was decreased and was via collaterals from the LAD. There was a 40% single discrete stenosis of the ostial segment of the second obtuse marginal branch (OM2) of the LCX. The OM2 was large. Right Coronary Artery The right coronary artery (RCA) was normal. Conclusions: * One vessel coronary artery disease (LCX) * Elevated left ventricular end diastolic pressure * Successful thrombectomy and stent insertion of the mid LCX lesion * Successful angioplasty of the ostial OM2 lesion Plan: - Patient with non-ischemic EKG, minimal trop I elevation to 0.08, 0.09. Patient currently asymptomatic. CXR showing possible hazy opacity, possibly atypical pneumonia. - Trop elevation is minimal and may be in the setting of demand given her possible pneumonia process. Lower concern for an active plaque rupture HI. - Recommended to trend trops and assess for either improvement of plateau. Plan for TTE and if flattrop, stress test in AM to rule out ischemia. Above recommendations were based on my discussion with Cindy CARLIN; I have not personally interviewed or examined this patient. Advised to call the transfer center back with any changes in the patient condition. Anthony Barbosa PGY4 Cardiology [id number] documented in this encounter Plan of Treatment Upcoming Encounters Date Type Department Care Team (Late st Contact Info) Description 03/20/2024 9:00 AM EDT TH Visit (TeleHealth) Sleep Center at [facility] [address] [place] [phone] Denisse Hardwick, [employer] TE[employer]NICAL OFFIC[employer] [facility] 03/20/2024 2:00 PM EDT Clinical Support Family Medicine at [facility] [address] [place] [address] Julia Low, [facility] 05/01/2024 11:20 AM EDT Appointment Mammography/[place] [address] Rodney Padilla MD [address] [place] [address] 05/01/2024 1:45 PM EDT Office Visit Ophthalmology at [place] [phone] Juanpablo Hernandez MD [facility] [place] [address] 01/30/2025 1:30 PM EDT Appointment Hematology and Oncology at [place] [phone] 01/30/2025 3:[address] Scan at [place] [phone] Arturo Cordero MD [facility] [address] [place] [address] 01/30/2025 4:15 PM EDT Office Visit Hematology [place] [address] Arturo Cordero MD [facility] [address] [place] [address] documented as of this encounter Visit Diagnoses Not on filedocumented in this encounter Care Teams Spray Operator Relationship Specialty Start Date End Date Luis E Narayan MD [facility] [address] [address] PCP - General Family Medicine 03/26/19 01/19/22 documented as of this encounter
--- OUTSIDE RECORDS SUMMARY | 2024-03-04 21:25 | XMS_ITS | Encounter Summary ---
Author Organization [facility] [place] [address] Care Team Providers Care Traffic Or System Dispatcher Name Role Phone Luis E Narayan MD Primary Care Provider [phone] Reason for Referral * Physical Therapy (Routine) - Closed Specialty Diagnoses / Procedures Referred By Gonzalez kumari Referred To Contact Physical Therapy Diagnoses Degenerative disc disease, lumbar Troy Moscoso PA [facility] [address] [place] [address] Physical Therapy, [address] [address] Referral ID Status Reason Start Date Expiration Date V isits Requested Visits Authorized [id number] Closed Evaluate and Treat 10/21/2020 04/19/2021 12 12 Reason for Visit * Reason Comments Low Back Pain With Radicular Pain Encounter Details Date Type Department Care Team (Late st Contact Info) Description 10/21/2020 9:20 AM EDT Office Visit Internal Medicine at [facility] [address] [place] [address] Troy Moscoso, PA [facility] [address] [place] [address] Type 2 diabetes mellitus without long-term current use of insulin; Degenerative disc disease, lumbar; BPPV (benign paroxysmal positional vertigo), right Social History Tobacco Use Types Packs/Day Years [...] slept in a prison (including now)? No 09/15/2020 Sex and Gender Information Value Date Recorded Sex Assigned at Not on file Gender Identity Not on file Sexual Orientation Not on file documented as of this encounter Last Filed Vital Signs Vital Sign Reading Time Taken Comments Blood Pressure 128/78 10/21/2020 9:26 AM EDT Pulse 76 10/21/2020 9:26 AM EDT Temperature - - Respiratory Rate 20 10/21/2020 9:26 AM EDT Oxygen Saturation - - Inhaled Oxygen Concentration - - Weight 108.9 kg (240 lb) 10/21/2020 9:26 AM EDT Height 159 cm (5' 2.6) 10/21/2020 9:26 AM EDT Body Mass Index 43.06 10/21/2020 9:26 AM EDT documented in this encounter Progress Notes * Troy Moscoso PA - 10/21/2020 9:20 AM EDT PRIMARY CARE AT [facility] [address] [facility] [address] CHIEF COMPLAINT Alize Gramajo is a 59 y.o. female who presents to clinic for @CCNNOLB@. HPI 59 year old female here today for worsening acute on chronic back pain. She reports that she was outside raking and doing yard work this weekend and had an exacerbation ofher pain She has a hx of degenerative disc disease MRI from 2013 is reviewed. Advanced degenerative disc disease at L4 on L5 and L5-S1 with resulting moderate neural foraminal narrowing at these levels. New left paracentral and foraminal disc extrusion at the left L3-L4 with resulting moderate foraminal narrowing, which likely impacts the left L3 and L4 roots. She states that the pain currently is all over, wraps around horizontally the back to hips She notes that her prior sicatica is not occurring She denies any worsening radiculopathy She denies any weakness of the legs She denies any bowel incontinence She has hx of uinary incontinence, which is chronic and unchanged She denies any saddle anesthesia Current pain level currently is about an 8 or 9 out of 10 past medical hx, family hx and social hx is reviewed and is pertinent to above complaints CURRENT MEDS Current Outpatient Medications: ??? cyclobenzaprine (Flexeril) 5 mg Tablet, Take 1 tablet by mouth 3 times daily as needed for Muscle spasms., Disp: 21 tablet, Rfl: 0 ??? albuteroL (Proventil HFA) 90 mcg/actuation HFA Aerosol Inhaler, Inhale 2 puffs into the lungs every 4 hours as needed for wheeze. Use with spacer, Disp: 1 Inhaler, Rfl: 11 ??? inhalational spacing device Spacer, For use with albuterol inhaler every 4 hours as needed for wheeze., Disp: 1 each, Rfl: 0 ??? fluorometholone (FML Forte) 0.25 % Drops, Suspension, Place 1 drop into the left eye 3 times daily., Disp: 10 mL, Rfl: 3 ??? metoprolol succinate XL (Toprol XL) 25 mg Tablet Sustained Release 24 hr, Take 1 tablet by mouth daily., Disp: 90 tablet, Rfl: 1 ??? clopidogreL (Plavix) 75 mg Tablet, Take 1 tablet by mouth daily. Restart post-operatively on 07/05, Disp: 90 tablet, Rfl: 1 ??? loratadine (Claritin) 10 mg Tablet, Take 1 tablet by mouth daily., Disp: 90 tablet, Rfl: 1 ??? polyethylene glycoL (Miralax) 17 gram Powder in Packet, Take 17 g by mouth daily., Disp: 14 each, Rfl: 0 ??? fluticasone propionate (FLONASE) 50 mcg/actuation [place], Suspension, 1 spray by Each Nare route2 times daily., Disp: 16 g, Rfl: 11 ??? metFORMIN (GLUCOPHAGE) 1,000 mg Tablet, Take 1 tablet by mouth 2 times daily (with meals)., Disp: 180 tablet, Rfl: 1 ??? traZODone (Desyrel) 100 mg Tablet, Take 1 tablet by mouth nightly., Disp: 90 tablet, Rfl: 3 ??? simvastatin (Zocor) 10 mg Tablet, Take 1 tablet by mouth daily., Disp: 90 tablet, Rfl: 3 ??? amLODIPine (Norvasc) 5 mg Tablet, Take 1 tablet by mouth daily., Disp: 90 tablet, Rfl: 3 ??? omeprazole 20 mg Tablet, Delayed Release (E.C.), Take 1 tablet by mouth daily., Disp: 90 tablet, Rfl: 3 ??? LORazepam (Ativan) 1 mg Tablet, Take 1 mg by mouth every 6 hours as needed for Anxiety., Disp: , Rfl: ??? busPIRone (Buspar) 10 mg Tablet, Take 15 mg by mouth 2 times daily., Disp: , Rfl: ??? losartan (Cozaar) 100 mg Tablet, Take 1 tablet by mouth daily., Disp: 90 tablet, Rfl: 3 ??? budesonide-formoteroL (SYMBICORT) 80-4.5 mcg/actuation HFA Aerosol Inhaler, Inhale 2 puffs intothe lungs 2 times daily., Disp: 1 Inhaler, Rfl: 11 ??? lamoTRIgine (LaMICtal) 100 mg Tablet, Take 1 tablet by mouth daily. (Patient taking differently: Take by mouth daily. Take 150mg PO QAM and 50mg PO QHS), Disp: 90 tablet, Rfl: 3 ??? lancets [facility], Use for twice daily testing, Disp: 100 each, Rfl: 11 ??? blood sugar diagnostic strips Strip, Use as instructed, Disp: 100 each, Rfl: 12 ??? Blood-Glucose Meter [facility], Use twice daily, Disp: 1 each, Rfl: 0 ??? aspirin EC 81 mg Tablet, Delayed Release (E.C.), Take 81 mg by mouth daily., Disp: , Rfl: ??? nitroGLYcerin (NITROSTAT) 0.4 mg Tablet, Sublingual, Place 1 tablet under the tongue See Admin Instructions., Disp: 30 tablet, Rfl: 0 ??? nicotine (NICODERM CQ) 21 mg/24 hr Patch 24 hr, Change 1 patch on the skin every 24 hours., Disp: , Rfl: ??? nicotine polacrilex (NICORETTE) 2 mg Gum, Take 2 mg by mouth as needed., Disp: , Rfl: ??? nicotine (NICOTROL) 10 mg Cartridge, Inhale 1 puff into the lungs as needed for Smoking cessation. (Patient not taking: Reported on 09/30/2020), Disp: 168 each, Rfl: 3 ??? nicotine (NICODERM CQ) 21 mg/24 hr Patch 24 hr, Place 1 patch onto the skin daily as needed. (Patient not taking: Reported on 09/30/2020), Disp: 30 patch, Rfl: 11 ALLERGIES Codeine phosphate, Erythromycin base, Azithromycin, Ibuprofen, Lisinopril, and Nsaids (non-steroidal anti-inflammatory drug) PAST MEDICAL HISTORY Past Medical History: Diagnosis Date ??? Allergy ??? Antiplatelet or antithrombotic long-term use aspirin, plavix ??? Arthritis ??? Asthma uses inhalerswith good effect ??? 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 SECTION ??? CORONARY ANGIOPLASTY WITH STENT PLACEMENT Placed at ??? 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 KNEE SURGERY ??? LASER SURGERY ??? PRO DESTR CORNEAL LESN,CRYO,PHOTO,THERM Left 05/14/2020 DESTRUCTION OF LESION OF CORNEA BY CRYOTHERAPHY (WRVU 3.47) performed by Juanpablo Hernandez MD at [facility] ??? PRO EXCIS CORNEA LESN Left 05/14/2020 EXCISION OF LESION, CORNEA, EXCEPT PTERYGIUM (WRVU 7.5) performed by Juanpablo Hernandez MD at [facility] ??? PRO LAP, PARTIAL NEPHRECTOMY Left 06/28/2019 LAPAROSCOPY, PARTIAL NEPHRECTOMY, ROBOTIC ASSIST (WRVU 27.41) performed by Avila Medina MD at [facility] MAIN OR ??? PRO PLACE AMNIOTIC MEMBRANE OCULAR SURFACE;SINGLE LAYER SUTURED Left 05/14/2020 PLACEMENT OF AMNIOTIC MEMBRANE ON THE OCULAR SURFACE,SINGLE LAYER,SUTURED (WRVU 2.5) performed by Juanpablo Hernandez MD at [facility] FAMILY HISTORY Family History Problem Relation Age of Onset ??? Medical History Unknown Other ??? Uterine Cancer Mother 76 hysterectomy age 76 ??? Heart Disease Father ??? Breast Cancer Maternal Aunt ??? Glaucoma Neg Hx ??? Macular Degeneration Neg Hx ??? Retinal Detachment Neg Hx SOCIAL HISTORY reports that she has been smoking cigarettes. She has a 40.00 pack-year smoking history. She has never used smokeless tobacco. She reports that she does not drink alcohol and does not use drugs. REVIEW OF SYSTEMS: See HPI VITALS BP 128/78 Pulse 76 Resp 20 Ht 159 cm (5' 2.6) Wt 108.9 kg (240 lb) BMI 43.06 kg/m?? POC RESULTS Results for orders placed or performed during the hospital encounter of 09/11/20 Basic Metabolic Panel (non-fasting) Result Value Ref Range Glucose Lvl 89 65 - 199 mg/dL BUN 14 8 - 18 mg/dL Creatinine 0.88 0.70 - 1.20 mg/dL Sodium 141 135 - 145 mmol/L Potassium 4.3 3.5 - 5.0 mmol/L Chloride 103 98 - 107 mmol/L CO2 25 22 - 31 mmol/L Anion Gap 13 5 - 15 mmol/L Calcium 9.5 8.5 - 10.5 mg/dL Estimated GFR 71 >=60 mL/min/1.73 m?? Hepatic Function Panel Result Value Ref Range Total Protein 7.5 6.1 - 8.0 gm/dL Albumin 4.6 3.2 - 5.2 gm/dL AST 20 0 - 30 unit/L ALT 22 0 - 30 unit/L Alk Phos 115 (H) 35 - 105 unit/L Total Bilirubin 0.4 0.2 - 1.3 mg/dL Bili, Direct 0.1 0.0 - 0.3 mg/dL Lipase Result Value Ref Range Lipase 38 0 - 60 unit/L Troponin Result Value Ref Range Troponin-T <0.01 0.00 - 0.00 ng/mL Hemogram Result Value Ref Range WBC 7.7 4.0 - 9.5 x10(3)/mcL RBC 4.76 4.00 - 5.21 x10(6)/mcL Hemoglobin 13.7 11.7 - 15.5 gm/dL Hematocrit 40.8 35.7 - 45.8 % MCV 85.7 82.6 - 94.4 fL MCH 28.8 27.1 - 32.0 pg MCHC 33.6 31.7 - 35.0 gm/dL Platelets 371 (H) 145 - 357 x10(3)/mcL RDWSD 41.8 37.0 - 46.0 fL RDWCV 13.3 11.5 - 14.1 % MPV 9.0 7.6 - 12.9 fL nRBC % Auto 0.0 % nRBC Abs Auto 0.000 0.000 - 0.000 x10(3)/mcL Differential, Automated Result Value Ref Range Neutrophils % 58.6 % Neutr Abs (ANC) 4.51 1 - 6 x10(3)/mcL Lymphocytes % 31.7 % Lymphocytes Abs 2.4 0.9 - 3.2 x10(3)/mcL Monocytes % 7.4 % Monocyte Abs 0.6 0.3 - 0.9 x10(3)/mcL Eosinophils % 1.4 % Eosinophils Abs 0.1 0.0 - 0.4 x10(3)/mcL Basophils % 0.6 % Basophils Abs 0.0 0.0 - 0.1 x10(3)/mcL Immature Gran % 0.30 % Soraida Gran Abs 0.02 0.00 - 0.04 x10(3)/mcL Blue Tube HOLD Result Value Ref Range Blue Hold Sample in lab. Gold Tube HOLD Result Value Ref Range Gold Hold Sample in lab. EKG 12 Lead Result Value Ref Range Ventricular rate 75 BPM Atrial Rate 75 BPM P-R Interval 170 ms QRS Duration 92 ms Q-T Interval 390 ms QTC Calculated (Bezet) 435 ms Calculated P [place] 53 degrees Calculated R [place] 3 degrees Calculated T [place] 54 degrees INTERPRETATION Normal sinus rhythm Normal ECG When compared with ECG of 14-FEB-2019 22:28, Aberrant conduction is no longer Present Confirmed by Radha Lawrence ([id number]) on 09/11/2020 7:23:38 PM PHYSICAL EXAM Gen: patient sitting in chair in the exam room, appears mildly uncomfortable, Back: without any signs of injury There is no deformity or wounds noted There is no direct tenderness to the spinal vertebrae There is tenderness overlying the paraspinal muscles at L 2-L5 and noted tenderness over the bilateral SI joints. ROM is limited with regards to flexion, second to pain The patient walks and stands in spine extention Neuro: bilateral lower ext without loss of muscle tone ROM of the bilateral lower ext is intact Strength is intact and symmetric bilaterally Bilateral patellar and achilles reflexes are 2+ and symmetric Sitting SLR is without difficulty or pain Bilateral ankle dorsiflexion, plantar flexion, Le 1st digit rom is full and intact bilaterally Dermatomes are intact to light touch throughout the bilateral Lower ext. Extremities: without signs of injury, no pedal edema, cyanosis. [facility] Admission on 09/11/2020, Discharged on 09/11/2020 Component Date Value Ref Range Status ??? Glucose Lvl 09/11/2020 89 65 - 199 mg/dL Final Diabetes: >=200 mg/dL plus symptoms ??? BUN 09/11/2020 14 8 - 18 mg/dL Final ??? Creatinine 09/11/2020 0.88 0.70 - 1.20 mg/dL Final ??? Sodium 09/11/2020 141 135 - 145 mmol/L Final ??? Potassium 09/11/2020 4.3 3.5 - 5.0 mmol/L Final Comment: Please note: Patients with WBC >100,000 may have falsely elevated Potassium levels. For accurate Potassium quantification in these patients send serum separator tube ([facility]) for subsequent determinations. Contact the Clinical Chemistry Laboratory if there are any questions. ??? Chloride 09/11/2020 103 98 - 107 mmol/L Final ??? CO2 09/11/2020 25 22 - 31 mmol/L Final ??? Anion Gap 09/11/2020 13 5 - 15 mmol/L Final ??? Calcium 09/11/2020 9.5 8.5 - 10.5 mg/dL Final ? ? Estimated GFR 09/11/2020 71 >=60 mL/min/1.73 m?? Final Comment: This patient???s estimated glomerular filtration rate (eGFR) is between 71 mL/min/1.73 m2 (patients with less muscle mass) and 83 mL/min/1.73 m2 (patients with more muscle mass) [...] mass and symptoms in addition to eGFR. ??? Total Protein 09/11/2020 7.5 6.1 - 8.0 gm/dL Final ??? Albumin 09/11/2020 4.6 3.2 - 5.2 gm/dL Final ??? AST 09/11/2020 20 0 - 30 unit/L Final ??? ALT 09/11/2020 22 0 - 30 unit/L Final ??? Alk Phos 09/11/2020 115* 35 - 105 unit/L Final ??? Total Bilirubin 09/11/2020 0.4 0.2 - 1.3 mg/dL Final ??? Bili, Direct 09/11/2020 0.1 0.0 - 0.3 mg/dL Final ??? Lipase 09/11/2020 38 0 - 60 unit/L Final ? ? Troponin-T 09/11/2020 <0.01 0.00 - 0.00 ng/mL Final Comment: The 99th percentile for Troponin T is less than 0.01 ng/mL, any detectable cTnT concentration using this assay should be considered elevated. According to the third universal definition of myocardial infarction the following criteria with a clinical presentation consistent with acute myocardial ischemia meets the diagnosis for a myocardial infarction ([place]). Detection of a rise and/or fall of cTnT, with at least one value greater than the 99th percentile (> or = 0.01) and with at least one of the following ?? Symptoms of ischemia ?? New or presumed new significant II-[id number]-N wave (ST-T) changes or new left bundle branch block (LBBB) ?? Development of pathologic Q waves in the ECG ?? Imaging evidence of new loss of viable myocardium or new regional wall motion abnormality ?? Identification of an intracoronary thrombus by angiography or autopsy Samples for cTnT testing should be obtained serially upon first assessment and again 3 to 6 hours later. If the clinical suspicion is h igh and previous samples have been negative an additional sample may be indicated. Reference: Third [place] Definition of Myocardial Infarction. Journal of the [place] College of Cardiology 2012;60:1581-98 ??? Ventricular rate 09/11/2020 75 BPM Final ??? Atrial Rate 09/11/2020 75 BPM Final ??? P-R Interval 09/11/2020 170 ms Final ??? QRS Duration 09/11/2020 92 ms Final ??? Q-T Interval 09/11/2020 390 ms Final ??? QTC Calculated (Bezet) 09/11/2020 435 ms Final ??? Calculated P [place] 09/11/2020 53 degrees Final ??? Calculated R [place] 09/11/2020 3 degrees Final ??? Calculated T [place] 09/11/2020 54 degrees Final ??? INTERPRETATION 09/11/2020 Final Value:Normal sinus rhythm Normal ECG When compared with ECG of 14-FEB-2019 22:28, Aberrant conduction is no longer Present Confirmed by Radha Lawrence ([id number]) on 09/11/2020 7:23:38 PM ??? WBC 09/11/2020 7.7 4.0 - 9.5 x10(3)/mcL Final ??? RBC 09/11/2020 4.76 4.00 - 5.21 x10(6)/mcL Final ??? Hemoglobin 09/11/2020 13.7 11.7 - 15.5 gm/dL Final ??? Hematocrit 09/11/2020 40.8 35.7 - 45.8 % Final ??? MCV 09/11/2020 85.7 82.6 - 94.4 fL Final ??? MCH 09/11/2020 28.8 27.1 - 32.0 pg Final ??? MCHC 09/11/2020 33.6 31.7 - 35.0 gm/dL Final ??? Platelets 09/11/2020 371* 145 - 357 x10(3)/mcL Final ??? RDWSD 09/11/2020 41.8 37.0 - 46.0 fL Final ??? RDWCV 09/11/2020 13.3 11.5 - 14.1 % Final ??? MPV 09/11/2020 9.0 7.6 - 12.9 fL Final ??? nRBC % Auto 09/11/2020 0.0 % Final ??? nRBC Abs Auto 09/11/2020 0.000 0.000 - 0.000 x10(3)/mcL Final ??? Neutrophils % 09/11/2020 58.6 % Final ??? Neutr Abs (ANC) 09/11/2020 4.51 1 - 6 x10(3)/mcL Final ??? Lymphocytes % 09/11/2020 31.7 % Final ??? Lymphocytes Abs 09/11/2020 2.4 0.9 - 3.2 x10(3)/mcL Final ??? Monocytes % 09/11/2020 7.4 % Final ??? Monocyte Abs 09/11/2020 0.6 0.3 - 0.9 x10(3)/mcL Final ??? Eosinophils % 09/11/2020 1.4 % Final ??? Eosinophils Abs 09/11/2020 0.1 0.0 - 0.4 x10(3)/mcL Final ??? Basophils % 09/11/2020 0.6 % Final ??? Basophils Abs 09/11/2020 0.0 0.0 - 0.1 x10(3)/mcL Final ??? Immature Gran % 09/11/2020 0.30 % Final Comment: Immature granulocytes(IG's)percentage and absolute count will include metamyelocytes, myelocytes, and promyelocytes. Blood smears from CBCs yielding IG's will be scanned manually for concordance. If this scan disagrees with the automated IG or if promyelocytes are noted, a manual differential will be performed. ??? Soraida Gran Abs 09/11/2020 0.02 0.00 - 0.04 x10(3)/mcL Final ??? Blue Hold 09/11/2020 Sample in lab. Final ??? Gold Hold 09/11/2020 Sample in lab. Final ASSESSMENT AND PLAN Patient Active Problem List Diagnosis Code ??? 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 Altered [...] ??? 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 Referral to pt. She received an rx for muscle relaxant yesterday as this has worked well for her in the past. She has had a prednisone, but reports has had a reaction that contributed to a hospitalization- unclear, so we will avoid burst We discussed she could also trial otc lidocaine patches. Went over neuro red flags - urgent reeval if occurring. Consider referral to pain and spine if does not return to baseline. Problem 2: BPPV, chronic, right: Note at the end of the visit as I was leaving, the patient reported chronic right sided vertigo, known hx tx in the past, I looked in both ears, clear without any mass or signs of inflammation - patient provided with modified diego maneuver, discussed how to perform at home in office. If with neuro red flags, or not improving- please follow up for formal eval with pcp. Diabetes, type 2: Overdue for a1c, this is also ordered in coverage for pcp RAEGAN Martin 10/21/2020 documented in this encounter Plan of Treatment Upcoming Encounters Date Type Department Care Team (Late st Contact Info) Description 03/20/2024 9:00 AM EDT TH Visit (TeleHealth) Sleep Center at [facility] [address] [place] [address] Denisse Hardwick, [facility] [facility] 03/20/2024 2:00 PM EDT Clinical Support Family Medicine at [facility] [address] [place] [address] Julia Low, [facility] 05/01/2024 11:20 AM EDT Appointment Mammography/[place] [phone] Rodney Padilla MD [address] [facility] [place] [address] 05/01/2024 1:45 PM EDT Office Visit Ophthalmology at [place] [phone] Juanpablo Hernandez MD [facility] [place] [address] 01/30/2025 1:30 PM EDT Appointment Hematology and Oncology at [place] [phone] 01/30/2025 3:[address] Scan at [place] [phone] Arturo Cordero MD [facility] [place] [address] 01/30/2025 4:15 PM EDT Office Visit Hematology [place] [phone] Arturo Cordero MD [facility] [place] [address] Scheduled Referrals Name Type Priority Associated Diagnoses Orde r Schedule Referral to Physical Therapy Outpatient Referral Routine Degenerative disc disease, lumbar Ordered: 10/21/2020 documented as of this encounter Procedures Procedure Name Priority Date/Time Associated Diagnosis Comments HC VENIPUNCTURE Routine 10/21/2020 10:20 AM EDT Type 2 diabetes mellitus without long-term current use of insulin documented in this encounter Results * (ABNORMAL) Hemoglobin A1c (10/21/2020 10:20 AM EDT) Hemoglobin A1c 7.8(H) 4.3 - 5.6 % [facility] Comment: Reference Range: 4.3 - [...] Mellitus, Diabetes Care 2013; 36: Suppl. 1, Q09-92 Estimated Average Glucose 177 mg/dL [facility] Comment: eAG equivalents for HbA1c [...] into estimated average glucose values. ??Diabetes Care 2008:31(8):8112-7339. Blood specimen (specimen) 10/21/2020 10:20 AM EDT 10/21/2020 1:48 PM EDT Narrative Resulting Agency Comment Spec In Lab M Noreen Maxwell MD CHEMISTRY ORDERABLES [facility] [place] [address] documented in this encounter Visit Diagnoses Diagnosis Type 2 diabetes mellitus without long-term current use of insulin Degenerative disc disease, lumbar Degeneration of lumbar or lumbosacral intervertebral disc BPPV (benign paroxysmal positional vertigo), right documented in this encounter Care Teams Traffic Or System Dispatcher Relationship Specialty Start Date End Date Luis E Narayan MD [facility] [address] [place] [address] PCP - General Family Medicine 03/26/19 01/19/22 documented as of this encounter
--- OUTSIDE RECORDS SUMMARY | 2024-03-04 21:25 | XMS_ITS | Encounter Summary ---
Author Organization [facility] [place] [address] Care Team Providers Care Industrial Chemical[employer] Supervisor Name Role Phone Luis E Narayan MD Primary Care Provider Reason for Visit * Reason Comments Eye Problem Malignant melanoma o f conjunctiva, left Encounter Details Date Type Department Care Team (Late st Contact Info) Description 11/06/2020 3:15 PM EDT Office [place] [address] Juanpablo Hernandez MD [facility] [place] [address] Malignant melanoma of conjunctiva, left Social History [...] * Patient Instructions* Juanpablo Hernandez MD - 11/06/2020 3:15 PM EDT Medications: Use eye medications as [...] Progress Notes * Juanpablo Hernandez MD - 11/06/2020 3:15 PM EDT Encounter Diagnosis Name Primary? Malignant melanoma of conjunctiva, left Alize Gramajo is a 59 y.o. with [...] no signs of recurrence. Follow for now Pre op photo Mild cataract: NIDDM with A1C of 6.9: no retinopathy [...] EDT TH Visit (TeleHealth) Sleep Center at [facility] [address] [place] [phone] Denisse Hardwick, [facility] 03/20/2024 2:00 PM EDT Clinical Support Family Medicine at [facility] [address] [place] [phone] Julia Low, [facility] 05/01/2024 11:20 AM EDT Appointment Mammography/[place] [address] Rodney Padilla MD [address] [facility] MED[facility] [place], [place] [id number] 05/01/2024 1:45 PM EDT Office Visit Ophthalmology at [place] [address] Juanpablo Hernandez MD [facility] [place] [place] [address] 01/30/2025 1:30 PM EDT Appointment Hematology and Oncology at [place] [address] 01/30/2025 3:[address] Scan at [place] [address] Arturo Cordero MD [facility] [place] [address] 01/30/2025 4:15 PM EDT Office Visit Hematology and Oncology at [place] [address] Arturo Cordero MD [facility] [place] [address] documented as of this encounter Visit Diagnoses Diagnosis Malignant melanoma of conjunctiva, left documented in this encounter Care Teams [employer] Supervisor Relationship Specialty Start Date End Date Luis E Narayan MD [facility] [address] [place] [address] PCP - General Family Medicine 03/26/19 01/19/22 documented as of this encounter
--- OUTSIDE RECORDS SUMMARY | 2024-03-04 21:25 | XMS_ITS | Encounter Summary ---
Author Organization [facility] Address [facility] [place] [address] Care Team Providers Care Assembler Semiconductor Name Role Phone Luis E Narayan MD Primary Care Provider Reason for Visit * Reason Comments Cancer Encounter Details Date Type Department Care Team (Late st Contact Info) Description 09/30/2020 12:45 PM EDT Office [place] [address] Juanpablo Hernandez MD [facility] [address] Malignant melanoma of conjunctiva, left Social History [...] slept in a mcc (including now)? No 09/15/2020 Sex and Gender Information Value Date Recorded Sex Assigned at Not on file Gender Identity Not on file Sexual Orientation Not on file documented as of this encounter Progress Notes * Juanpablo Hernandez MD - 09/30/2020 12:45 PM EDT Images from the original [...] 0.04% x 1 wk in early 2020 Upper punctal plug OS, Lower plug in place Much improved inflammation, particularly cornea. Will have short course of FML tid to help with residual conj inflammation Pre op photo Mild cataract: NIDDM with A1C of 6.9: no retinopathy seen Current smoker but denies orthopnea, Clear cell renal cell carcinoma Plan: - as above - Follow up 4 wk or as needed - Findings and concerns discussed with Alize and she expressed understanding. -Upon Return IOP MR if vision down by 2 lines compared to last visit documented in this encounter Plan of Treatment Upcoming Encounters Date Type Department Care Team (Late st Contact Info) Description 03/20/2024 9:00 AM EDT TH Visit (TeleHealth) Sleep Center at [facility] [address] [place] [address] Denisse Hardwick, [facility] 03/20/2024 2:00 PM EDT Clinical Support Family Medicine [facility] [address] [place] [address] Julia Low, [facility] 05/01/2024 11:20 AM EDT Appointment Mammography/DXA at [place] [phone] Rodney Padilla MD [address] [place] [address] 05/01/2024 1:45 PM EDT Office Visit Ophthalmology at [place] [phone] Juanpablo Hernandez MD [facility] [place] [address] 01/30/2025 1:30 PM EDT Appointment Hematology [place] [address] 01/30/2025 3:[address] [place] [address] Arturo Cordero MD [facility] [place] [address] 01/30/2025 4:15 PM EDT Office Visit Hematology [place] [address] Arturo Cordero MD [facility] [place] [address] documented as of this encounter Visit Diagnoses Diagnosis Malignant melanoma of conjunctiva, left documented in this encounter Care Teams Assembler Semiconductor Relationship Specialty Start Date End Date Luis E Narayan MD [facility] [address] [place] [address] PCP - General Family Medicine 03/26/19 01/19/22 documented as of this encounter
--- OUTSIDE RECORDS SUMMARY | 2024-03-04 21:25 | XMS_ITS | Encounter Summary ---
Author Organization [facility] [place] [address] Care Team Providers Care Loan Approver Name Role Phone Luis E Narayan MD Primary Care Provider Encounter Details Date Type Department Care Team (Late st Contact Info) Description 11/03/2020 Telephone Family Medicine at [facility] [address] [place] [phone] Thania Flores, RN Social History Tobacco Use [...] Telephone Encounter - Thomas Tyson RN - 11/03/2020 4:00 PM EDT Reached out to patient Alize to relay COS message. Patient identity confirmed by full name and . Patient was told her A1C is elevated and we recommend making an appointment with PCP to discuss diabetes management. Patient reported understanding and agrees to plan of care. Patient states she will call back tomorrow to schedule an appointment. Patient had no further questions or concerns regarding care for this RN. * Telephone Encounter - Thania Flores RN - 11/03/2020 3:54 PM EDT Troy Moscoso PA 11/03/2020 ??3:18 PM EDT Nurses, ?? Can you make sure this patient of dr. Narayan knows that her a1c has increased and that she should make an appt with her pcp to discuss diabetes management ?? Thanks ?? Nas clark documented in this encounter Plan of Treatment Upcoming Encounters Date Type Department Care Team (Cornelius Contact Info) Description 03/20/2024 9:00 AM EDT TH Visit (TeleHealth) Sleep Center at [facility] [address] [place] [address] Denisse Hardwick, [facility] 03/20/2024 2:00 PM EDT Clinical Support Family Medicine at [facility] [address] [place] [address] Julia Low, [facility] 05/01/2024 11:20 AM EDT Appointment Mammography/[place] [address] Rodney Padilla MD [address] [facility] [place], [place] [phone] 05/01/2024 1:45 PM EDT Office Visit Ophthalmology at [place] [phone] Juanpablo Hernandez MD [facility] [address] 01/30/2025 1:30 PM EDT Appointment Hematology [place] [address] 01/30/2025 3:[address] Scan at [place] [phone] Arturo Cordero MD [facility] [place] [address] 01/30/2025 4:15 PM EDT Office Visit Hematology and Oncology at [place] [phone] Arturo Cordero MD [facility] [place] [address] documented as of this encounter Visit Diagnoses Not on filedocumented in this encounter Care Teams Loan Approver Relationship Specialty Start Date End Date Luis E Narayan MD [facility] [address] [address] PCP - General Family Medicine 03/26/19 01/19/22 documented as of this encounter
--- OUTSIDE RECORDS SUMMARY | 2024-03-04 21:25 | XMS_ITS | Encounter Summary ---
[place] [address] Care Team Providers Care Pad Tufter Name Role Phone Luis E Narayan MD Primary Care Provider Reason for Visit * Reason Comments Melanoma Encounter Details Date Type Department Care Team (Late st Contact Info) Description 08/28/2020 2:30 PM EST Office [place] [address] Juanpablo Hernandez MD [facility] [place] [address] Malignant melanoma of conjunctiva, left Social History [...] * Patient Instructions* Juanpablo Hernandez MD - 08/28/2020 2:30 PM EST Medications: Use eye medications as [...] Progress Notes * Juanpablo Hernandez MD - 08/28/2020 2:30 PM EST Images from the original [...] margins, though free edge specimens negative Completed 1 of 3 rounds qid [facility] 0.04% x 1 wk Punctal plugs in place, no evidence of recurrence or limbal stem cell failure She brought unused first bottle to dispose of Call prn problems Pre op photo Mild cataract: 20/20 ou NIDDM with A1C of 6.9: no retinopathy seen Current smoker but denies orthopnea, Clear cell renal cell carcinoma Plan: - as above - Follow up 2-4wk or as needed - Findings and concerns discussed with Alize and she expressed understanding. -Upon Return IOP MR if vision down by 2 lines compared to last visit documented in this encounter Plan of Treatment Upcoming Encounters Date Type Department Care Team (Late st Contact Info) Description 03/20/2024 9:00 AM EDT TH Visit (TeleHealth) Sleep Center at [address] [facility] [place] [phone] Denisse Hardwick, [facility] 03/20/2024 2:00 PM EDT Clinical Support Family Medicine at [facility] [address] [place] [address] Julia Low [facility] 05/01/2024 11:20 AM EDT Appointment Mammography/[place] [address] Rodney Padilla MD [address] [place] [address] 05/01/2024 1:45 PM EDT Office Visit Ophthalmology at [place] [phone] Juanpablo Hernandez MD [facility] [place] [address] 01/30/2025 1:30 PM EDT Appointment H[place]ology [place] [address] 01/30/2025 3:[address] Scan at [place] [phone] Arturo Cordero MD [facility] DR [place]EMATOLOG[place] [address] 01/30/2025 4:15 PM EDT Office Visit Hematology and Oncology at [place] [phone] Arturo Cordero MD [facility] DR [place]EMATOLOG[place] [address] documented as of this encounter Visit Diagnoses Diagnosis Malignant melanoma of conjunctiva, left documented in this encounter Care Teams Pad Tufter Relationship Specialty Start Date End Date Luis E Narayan MD [facility] [address] [place] [address] PCP - General Family Medicine 03/26/19 01/19/22 documented as of this encounter
--- OUTSIDE RECORDS SUMMARY | 2024-03-04 21:25 | XMS_ITS | Encounter Summary ---
[place] [address] Care Team Providers Care Naval Designer Name Role Phone Luis E Narayan MD Primary Care Provider [phone] Encounter Details Date Type Department Care Team (Latest Contact Info) Description 09/15/2020 12:00 PM EST Clinical Support [place] [address] Malika Ye Cigarette nicotine dependence without complication Social History Tobacco Use Types Packs/Day Years [...] slept in a alf (including now)? No 09/15/2020 Sex and Gender Information Value Date Recorded Sex Assigned at Not on file Gender Identity Not on file Sexual Orientation Not on file documented as of this encounter Progress Notes * Malika Ye - 09/15/2020 12:00 PM EST ..Tobacco Treatment Consultation [place] ([place] [address] FAX: Alize Gramajo is a 59 y.o. female seen today for smoking cessation counseling. She is currently smoking [place] gold and does wish to quit soon. She reports telling herself all the time to quit, butthinking about it causes anxiety. Readiness: Importance scale: 10 + Confidence scale: 2 Stage of Change: Precontemplation: Contemplation: Preparation: X Action: Maintenance: NICOTINE DEPENDENCE 0 Points 1Points 2 Points 3 Points Score 1.How soon after waking do you smoke your first cigarette? After 60 minutes 31- 60 minutes minutes 6-30 minutes Within 5 minutes 3 2. Do you find it difficult to refrain from smoking in places where it is forbidden? (ex. voodoo) No Yes 1 3. Which cigarette would you hate to give up? All others The first one in the morning 1 4. How many cigarette do you smoke a day? 10 or less 11-20 21-30 30 or more 2 Do you smoke more frequently during the first hour after waking than the rest of the day? No Yes 1 6. Do you smoke if you are so ill that you are in bed all day? 0 Classification: 0-2 Very low 3-4 Low 5 Moderate 6-7 High 8-10 Very high X Assessment/Plan: Ms. Gramajo has a Fagerstrom Score of 8, indicating a high dependence on Nicotine. I reviewed the physiology of addiction as well as apparent health risks specific to the patient. I discussed the options for treatment including NRT, Zyban and Chantix. I reviewed possible side effects of therapy. I stressed that medication alone is not optimum but used in conjunction with behavioral counseling will add to success for cessation. The patient decided that the best course of action is trying the nicotine patches and gum together. I reviewed the correct way to use the Nicotine patch, changing the place where it is put it on the skin daily, and proper disposal, to keep it out of reach of children or pets. I warned that some patients experience vivid dreams on the patch and instructed that if this were to happen the patch should be removed at bedtime and replaced each morning. The patient should be sure to leave a nicotine lozenge at the bedside to use first thing every morning. The patient will be on nicotine patches for at least two weeks or until we determine she needs to change. If at any point after tapering the patient has an increased craving they should go back to the higher dose for another two weeks then try to decrease again. I instructed Nina in the correct use of the Nicotine lozenge and explained that the nicotine would be absorbed through the mucous membranes of the mouth, at a specific pH or acidity. Therefore theyshould not eat or drink anything except water for 15 minutes before or during use of the lozenge orthe nicotine would not be absorbed and the medication won't help . The patient understands it should not be chewed or swallowed whole or in pieces. The maximum number of lozenges to be used in a day is 20. Most people who use the Nicotine patch plus lozenges generally use about 4-5 lozenges a day. The patient has been instructed to use the lozenge upon awakening, 30 minutes before meals and at bedtime at a minimum. It can also be used every 1-2 hours in between. The lozenge should be used when there is a strong urge to smoke, instead of smoking. I reviewed several tips for helping with quitting including the 4 D's, using straws cut the length of cigarettes, cinnamon sticks, flavored toothpicks, sugar free candy, etc. I also discussed the meaning of elevated CO measurements and explained that this level would return to normal within 24-48 hours of quitting smoking. We discussed the importance of exercise, especially walking. We practiced breathing together I recommend that Alize use the breathing regularly to help to relieve anxiety. * Support systems include: her therapist, for one. The patient has been provided with a [facility] Smoking Cessation packet and offered a Forever Free packet. The patient has my card with my contact information and has been encouraged to call with additional questions or concerns. The patient also has the Quit line number and the smokefree txt information. Patient has been advised to contact me if any unusual symptoms occur. A follow up phone call will be scheduled for tomorrow. CO Monitor Reading First Visit_24 Subsequent visit 34 Malika Ye 09/15/20 Tobacco Treatment Program [facility] documented in this encounter Plan of Treatment Upcoming Encounters Date Type Department Care Team (Late st Contact Info) Description 03/20/2024 9:00 AM EDT TH Visit (TeleHealth) Sleep Center at [facility] [address] [place] [address] Denisse Hardwick, [facility] 03/20/2024 2:00 PM EDT Clinical Support Family Medicine at [facility] [address] [place] [address] Julia Low [facility] 05/01/2024 11:20 AM EDT Appointment Mammography/DXA at [facility] [address] [facility] [place] [phone] Rodney Padilla MD [address] [place] [address] 05/01/2024 1:45 PM EDT Office Visit Ophthalmology at [place] [address] Juanpablo Hernandez MD [facility] [place] [address] 01/30/2025 1:30 PM EDT Appointment Hematology and Oncology at [place] [address] 01/30/2025 3:[address] Scan at [place] [address] Arturo Cordero MD [facility] [address] [place] [address] 01/30/2025 4:15 PM EDT Office Visit Hematology and Oncology at [place] [address] Arturo Cordero MD [facility] [place] [address] documented as of this encounter Visit Diagnoses Diagnosis Cigarette nicotine dependence without complication Tobacco use disorder documented in this encounter Care Teams Naval Designer Relationship Specialty Start Date End Date Luis E Narayan MD [facility] [address] [place] [address] PCP - General Family Medicine 03/26/19 01/19/22 documented as of this encounter
--- OUTSIDE RECORDS SUMMARY | 2024-03-04 21:25 | XMS_ITS | Encounter Summary ---
Author Organization [facility] [place] [address] Care Team Providers Care Home Housekeeper Name Role Phone Luis E Narayan MD Primary Care Provider Encounter Details Date Type Department Care Team (Late st Contact Info) Description 09/14/2020 Telephone Family Medicine at [facility] [address] [place] [address] Silvio Alonzo Social History Tobacco Use Types Packs/Day Years [...] * Telephone Encounter - Silvio Alonzo - 09/14/2020 3:16 PM EST Records faxed to law office at [phone] * Telephone Encounter - Silvio Alonzo - 09/14/2020 3:15 PM EST Regarding: RE: Other Contact: ----- Message from Alejandra Posadas RN sent at 09/14/2020 2:39 PM EST ----- WOuld this be a medical records request? See 09/11/20 [place] request ----- Message sent from Alejandra Posadas RN to Alize Gramajo at 09/14/2020 2:37 PM ----- Thank you Alize. We will communicate with the law office. Best regards, Alejandra Nielsen RN ----- Message ----- From:Alize Gramajo Sent:09/14/2020 2:17 PM EST To:Luis E Narayan MD Subject:Other Dr. Narayan, my disability equipment services associate sent you some paperwork. I know you were gone on vacation so don't know if this has been filled out. He needs this back by September 21 or needs to know if not, cause he'll have to file an extension cause has to give it to them 7 days before. I had talked with Thomas about this. My final hearing is in about 2 weeks. As this has been going on since summer. Thank you, Alize documented in this encounter Plan of Treatment Upcoming Encounters Date Type Department Care Team (Late st Contact Info) Description 03/20/2024 9:00 AM EDT TH Visit (TeleHealth) Sleep Center at [facility] [address] [place] [address] Denisse Hardwick, [facility] 03/20/2024 2:00 PM EDT Clinical Support Family Medicine at [facility] [address] [place] [address] Julia Low, [facility] 05/01/2024 11:20 AM EDT Appointment Mammography/[place] [address] Rodney Padilla MD [address] [place] [address] 05/01/2024 1:45 PM EDT Office [place] [address] Juanpablo Hernandez MD [facility] [place] [address] 01/30/2025 1:30 PM EDT Appointment Hematology [place] [address] 01/30/2025 3:[address] [place] [address] Arturo Cordero MD [facility] DR HEMATOLOGY [place] [address] 01/30/2025 4:15 PM EDT Office Visit Hematology [place] [address] Arturo Cordero MD [facility] HEMATOLOGY [place] [address] documented as of this encounter Visit Diagnoses Not on filedocumented in this encounter Care Teams Home Housekeeper Relationship Specialty Start Date End Date Luis E Narayan MD [facility] [address] [address] PCP - General Family Medicine 03/26/19 01/19/22 documented as of this encounter
--- OUTSIDE RECORDS SUMMARY | 2024-03-04 21:25 | XMS_ITS | Encounter Summary ---
Author Organization [facility] [place] [address] Care Team Providers Care Box Feeder Name Role Phone Luis E Narayan MD Primary Care Provider Reason for Visit * Reason Onset Date Comments Back Pain 10/20/2020 Encounter Details Date Type Department Care Team (Late st Contact Info) Description 10/20/2020 Refill Internal Medicine at [facility] [address] [place] [address] Cara Thomas, mill house supervisor bilateral low back pain without sciatica Social [...] slept in a half-way (including now)? No 09/15/2020 Sex and Gender Information Value Date Recorded Sex Assigned at Not on file Gender Identity Not on file Sexual Orientation Not on file documented as of this encounter Miscellaneous Notes * Telephone Encounter - Craa Thomas RN - 10/20/2020 2:59 PM EDT Spoke to patient, verified full name and . Advised patient of COS's message. Advised her the flexeril is called in, she should belt picker albert. Advised that before a steroid is prescribed, she will need to be evaluate in clinic. Patient scheduled for in clinic appointment with Nas Moscoso on 10/21/20at 09:20 to discuss short term steroid use in conjunction with Flexeril, for inflammation reduction and pain management. Neg to HTI questions. Advised patient she will probably need further follow up with as well. * Telephone Encounter - Troy Moscoso PA - 10/20/2020 10:38 AM EDT I see the diabagnosis in the chart, but it looks like dr. narayan has never filled. This. im ok with a short term rx, but she should be extremely cautious with cyclobenzarpine, as with her age, it can cause fall risk. I would not do any other medications or steroid without an eval first. Obviously if with radiculopathy, things not improving, she should make an appt for eval with her pcp to discuss chronic management nas clark * Telephone Encounter - Cara Thomas RN - 10/20/2020 10:08 AM EDT Caller: Alize Gramajo Patient identified by name and Chief complaint: Severe lower back pain Onset: two days ago Description of symptoms: Patient has chonic lower back pain caused by a bulging disk. Patient is usually able to manage, butsometimes has flare up's. This is the first flare up of severe pain patisanna moeller had in 3 years. Patient states she is having a flare up now and is in a lot of pain. In the past (3 years ago) she was given Flexeril 5 mg three times daily (in Medication list). She was also given a 7 day course of oral steroids (not found in med list). This combination was prescribed by her former PCP. MRI of Bulging disc in Imaging from 2013. Patient lives [place] hour away, can not easily come in for an appointment. It would increase her lower back pain as well. Patient is wondering if PCP would be willing to call in scripts for flexeril and oral steroid taper. I advise patient that I ill forward request to for review. Patient states this worked really well to get her through the flare up. Patient wants to avoid having to get Cortisone injections again. Patient has tried Lido patches, and sh trevino not remember those working well either. Patient can not take NSAIDS due to malignant renal malignant mass. Pertinent hx: Bulging disk Telehealth screen: [x] Established patient [] Has access to Internet smart phone or computer with camera [] Would need phone visit Plan: [x] Will review with PCP/COS and call patient [...] smell [] Nausea or vomiting [] Diarrhea [] Advised to seek urgent care [] Advised to seek emergent care [] Call 911. Home Care Instructions provided per: [x] Melchor Telephone Triage Protocols for Nurses 6th edition. [] Sotelo: Pediatric Telephone protocols 15/16th edition Recommendations for worsening condition:Go to ED Does the Patient agree and understand the instructions provided: yes Note routed to: MD Tanya For review. documented in this encounter Plan of Treatment Upcoming Encounters Date Type Department Care Team (Late st Contact Info) Description 03/20/2024 9:00 AM EDT TH Visit (TeleHealth) Sleep Center [facility] [address] [place] [address] Denisse Hardwick, STRATEGIC PARTNERSHIP SPECIALIST [facility] 03/20/2024 2:00 PM EDT Clinical Support Family Medicine at [facility] [address] [place] [address] Julia Low, [facility] 05/01/2024 11:20 AM EDT Appointment Mammography/[place] [address] Rodney Padilla MD [address] [facility] [place], [place] [id number] 05/01/2024 1:45 PM EDT Office [place] [address] Juanpablo Hernandez MD [facility] [place] [address] 01/30/2025 1:30 PM EDT Appointment Hematology [place] [address] 01/30/2025 3:[address] [place] [address] Arturo Cordero MD [facility] [address] [place] [address] 01/30/2025 4:15 PM EDT Office Visit Hematology [place] [address] Arturo Cordero MD [facility] [place] [address] documented as of this encounter Visit Diagnoses Diagnosis Chronic bilateral low back pain without sciatica documented in this encounter Care Teams Box Feeder Relationship Specialty Start Date End Date Luis E Narayan MD [facility] [address] [place] [address] PCP - General Family Medicine 03/26/19 01/19/22 documented as of this encounter
--- OUTSIDE RECORDS SUMMARY | 2024-03-04 21:25 | XMS_ITS | Encounter Summary ---
Author Organization [place] [address] Care Team Providers Care Medical Equipment Repairer Name Role Phone Luis E Narayan MD Primary Care Provider [phone]- [phone] Reason for Visit * Reason Onset Date Comments Follow-up 08/14/2020 Encounter Details Date Type Department Care Team (Late st Contact Info) Description 08/14/2020 Telephone [place] [address] Juanpablo Hernandez MD [facility] [address] Follow-up Social History Tobacco Use Types Packs/Day Years [...] slept in a fci (including now)? No 09/15/2020 Sex and Gender Information Value Date Recorded Sex Assigned at Not on file Gender Identity Not on file Sexual Orientation Not on file documented as of this encounter Miscellaneous Notes * Telephone Encounter - Chantell Dukes - 08/25/2020 7:47 AM EST I connected with Alize and let her know what is going on * Telephone Encounter - Lida Bains - 08/18/2020 2:24 PM EST Patient called in to speak to Chantell. Let patient know Chantell was not in this afternoon and wouldgive her a ring tomorrow. [phone] * Telephone Encounter - Chantell Dukes - 08/18/2020 11:49 AM EST Avila called back and he will start the process of getting contracted with [place] medicaid. For the nextdose. He will let me know what the result is. * Telephone Encounter - Chantell Dukes - 08/18/2020 10:35 AM EST Received PA answer from [place] medicaid indexed to patient's chart in media. It stated that the mitomycin injectable was covered. I called to ask about this and spoke to a Karla who states that they still can't see the claim made from [employer]. We went around and she states that there is nothing they need to do on their end but to talk to Provider services and see if we can do an out of network request. Called provider services number given and spoke with jasmyn Hernandez. He states that this is not a job for provider services but for pharmacy. Provider services do not do out of network pharmacy authorizations but pharmacy services to do. He suggested the easiest way is for the pharmacy to become contractedwith [place] Medicaid. Called pharmacy to let them know and left a message for Avila to call me back in order to discuss the process. * Telephone Encounter - Chantell Dukes - 08/17/2020 10:22 AM EST LMOAM x 1 to give update on insurance and MEZ would like to talk with her. Please Transfer to Chantell * Telephone Encounter - Juanpablo Hernandez MD - 08/17/2020 10:14 AM EST 08/14/2020 Spoke with Alize on 08/14 and again on 08/17. She began use of using [facility] 0.04% bid on 08/13 andfor the next week. We reviewed the following - Potential risks for children, women etc - QID use for a week then off for a week x 2-3 cycles - Importance for her to retained any unused portion of drops for proper disposal - Need for follow up in a few weeks to see how she is doing - Let her know that she can reach out to me with questions or problems So far no problems * Telephone Encounter - Chantell Dukes - 08/14/2020 6:05 PM EST Christine submitted the PA around 12:30 today and we received a an incomplete around 4:30pm stating that it needed more information and the [facility] to submit a claim. [facility] pharmacy called back and spoke with Hillary to state that they do not compound. I called [facility] and spoke with a Kati and Avila the pharmacist. Avila had spoken with [place] Medicaid and submitted a claim but Efra who he spoke to over there could not see it yet but knows he submitted a claim as asked. They believe it will probably be denied but gave me the information needed for the PA in case. We will try and resubmit with that information Monday. Scanned in the needed information to be faxed on Monday in Scanned Docs. * Telephone Encounter - Chantell Dukes - 08/14/2020 12:38 PM EST Called [place] Medicaid. I got in contact with the Pharmacy services after 3 transfers and one hour on the phone. Spoke with a Efra that walked me through the [place] process for [place] and where to find the forms. They also gave me the name of 2 pharmacies that compound. I left a message for [facility] to see if they compound mytomicin drops. I also called the other pharmacy [facility] tosee if they compound mytomicin into drops and they do not. Working on PA to send in today documented in this encounter Plan of Treatment Upcoming Encounters Date Type Department Care Team (Late st Contact Info) Description 03/20/2024 9:00 AM EDT TH Visit (TeleHealth) Sleep Center at [facility] [address] [place] [address] Denisse Hardwick, ELEVATOR CONSTRUCTOR [facility] 03/20/2024 2:00 PM EDT Clinical Support Family Medicine at [facility] [address] [place] [address] Julia Low, [facility] 05/01/2024 11:20 AM EDT Appointment Mammography/DXA at [place] [phone] Rodney Padilla MD [address] [place] [address] 05/01/2024 1:45 PM EDT Office Visit Ophthalmology at [address] Juanpablo Hernandez MD [facility] OPHTHALMOLOGY [place] [id number] 01/30/2025 1:30 PM EDT Appointment Hematology and Oncology at [address] 01/30/2025 3:[address] Scan [place] [address] Arturo Cordero MD [facility] [place] [address] 01/30/2025 4:15 PM EDT Office Visit Hematology and Oncology at [place] [phone] Arturo Cordero MD [facility] [place] [address] documented as of this encounter Visit Diagnoses Not on filedocumented in this encounter Care Teams Medical Equipment Repairer Relationship Specialty Start Date End Date Luis E Narayan MD [facility] [address] [place] [address] PCP - General Family Medicine 03/26/19 01/19/22 documented as of this encounter
--- OUTSIDE RECORDS SUMMARY | 2024-03-04 21:25 | XMS_ITS | Encounter Summary ---
Author Organization [facility] [place] [address] Care Team Providers Care Ice House Supervisor Name Role Phone Luis E Narayan MD Primary Care Provider [phone]- [phone] Reason for Visit * Reason Onset Date Comments Other 08/24/2020 Encounter Details Date Type Department Care Team (Late Contact Info) Description 08/24/2020 Telephone Family Medicine at [facility] [address] [place] [address] Gia Bruce Other Social History Tobacco Use Types Packs/Day [...] encounter Miscellaneous Notes * Telephone Encounter - Gia Bruce - 08/24/2020 10:46 AM EST Left message for patient to return my call. documented in this encounter Plan of Treatment Upcoming Encounters Date Type Department Care Team (Late Contact Info) Description 03/20/2024 9:00 AM EDT TH Visit (TeleHealth) Sleep Center at [facility] [address] [place] [address] Denisse Hardwick, AGING ROOM OPERATOR [facility] 03/20/2024 2:00 PM EDT Clinical Support Family Medicine at [facility] [address] [place] [address] Julia Low, [facility] 05/01/2024 11:20 AM EDT Appointment Mammography/[place] [address] Rodney Padilla MD [address] [place] [address] 05/01/2024 1:45 PM EDT Office [place] [address] [facility] [place] [address] 01/30/2025 1:30 PM EDT Appointment Hematology [place] [address] 01/30/2025 3:[address] Scan at [place] [phone] [facility] [place] [address] 01/30/2025 4:15 PM EDT Office Visit Hematology [place] [address] [facility] [place] [address] documented as of this encounter Visit Diagnoses Not on filedocumented in this encounter Care Teams Ice House Supervisor Relationship Specialty Start Date End Date Luis E Narayan MD [facility] [address] [place], [place] [phone] PCP - General Family Medicine 03/26/19 01/19/22 documented as of this encounter
--- OUTSIDE RECORDS SUMMARY | 2024-03-04 21:25 | XMS_ITS | Encounter Summary ---
Author Organization [facility] [place] [address] Care Team Providers Care Puppy Sitter Name Role Phone Luis E Narayan MD Primary Care Provider Encounter Details Date Type Department Care Team (Late st Contact Info) Description 10/21/2020 Telephone Internal Medicine at [facility] [address] [place] [address] Post, Christine Pablo Social History Tobacco Use Types Packs/Day Years [...] slept in a penitentiary (including now)? No 09/15/2020 Sex and Gender Information Value Date Recorded Sex Assigned at Not on file Gender Identity Not on file Sexual Orientation Not on file documented as of this encounter Miscellaneous Notes * Telephone Encounter - Christine Guzman - 10/21/2020 4:18 PM EDT Good Afternoon, Clinical front office secretary called patient and left a voicemail to please call back [facility] Primary Care at [phone]. When patient calls back please assist with scheduling an appointment with Luis E Narayan MD in regards to lab follow-up. Thank you, Christine documented in this encounter Plan of Treatment Upcoming Encounters Date Type Department Care Team (Late st Contact Info) Description 03/20/2024 9:00 AM EDT TH Visit (TeleHealth) Sleep Center at [facility] [address] [place] [address] Denisse Hardwick, [employer] [facility] 03/20/2024 2:00 PM EDT Clinical Support Family Medicine at [facility] [address] [place] [address] Julia Low, [facility] 05/01/2024 11:20 AM EDT Appointment Mammography/DXA at [place] [phone] Rodney Padilla MD [address] [place] [address] 05/01/2024 1:45 PM EDT Office Visit Ophthalmology at [place] [address] Juanpablo Hernandez MD [facility] [place] [address] 01/30/2025 1:30 PM EDT Appointment Hematology and Oncology at [place] [address] 01/30/2025 3:[address] Scan at [place] [address] Arturo Cordero MD [facility] DR HEMATOLOGY [place] [address] 01/30/2025 4:15 PM EDT Office Visit Hematology and Oncology at [place] [address] Arturo Cordero MD [facility] DR HEMATOLOGY [place] [address] documented as of this encounter Visit Diagnoses Not on filedocumented in this encounter Care Teams Puppy Sitter Relationship Specialty Start Date End Date Luis E Narayan MD [facility] [place] [address] PCP - General Family Medicine 03/26/19 01/19/22 documented as of this encounter
--- OUTSIDE RECORDS SUMMARY | 2024-03-04 21:25 | XMS_ITS | Encounter Summary ---
Author Organization [facility] [place] [address] Care Team Providers Care Outside Property Agent Name Role Phone Luis E Narayan MD Primary Care Provider Encounter Details Date Type Department Care Team (Late st Contact Info) Description 09/21/2020 Telephone Family Medicine at [facility] [address] [place] [address] Alejandra Posadas, RN Social History Tobacco Use [...] slept in a usp (including now)? No 09/15/2020 Sex and Gender Information Value Date Recorded Sex Assigned at Not on file Gender Identity Not on file Sexual Orientation Not on file documented as of this encounter Miscellaneous Notes * Telephone Encounter - Alejandra Posadas RN - 09/23/2020 12:24 PM EDT Field Operations Technician returned call. He was wondering when patient was referred to [facility], advised referrals were made 05/10/2019 and 08/05/2019. Gave him their department number to speak about the wait time. * Telephone Encounter - Alejandra Posadas RN - 09/23/2020 11:56 AM EDT Faxed letter. Left massage at taper and floater's office that I did this and invited him to call if anything else is needed of primary care. Placed in Medical records * Telephone Encounter - Luis E Narayan MD - 09/23/2020 11:52 AM EDT Letter done. * Telephone Encounter - Alejandra Posadas RN - 09/21/2020 8:53 AM EDT Called placed to Law office at [phone] They would like fax of prior communications sent back to them with those dates as well as a correspondence dated today with PCP's message: Dr. Narayan is not trained or equipped to make disability determinations. He believes that there are several specialists in the community who do this work, although he can't make any specific referrals. Law office fax is [phone] Forms are in media dated 08/20/20 Message 08/21 states forms were faxed back, although I don't see forms in scan docs with PCP commenton them documented in this encounter Plan of Treatment Upcoming Encounters Date Type Department Care Team (Late st Contact Info) Description 03/20/2024 9:00 AM EDT TH Visit (TeleHealth) Sleep Center at [facility] [address] [place] [address] Denisse Hardwick, FOREIGN LANGUAGE TEACHER [facility] 03/20/2024 2:00 PM EDT Clinical Support Family Medicine at [facility] [address] [place] [address] Julia Low, [facility] 05/01/2024 11:20 AM EDT Appointment Mammography/[place] [address] Rodney Padilla MD [address] [facility] [place], [place] [address] 05/01/2024 1:45 PM EDT Office [place] [address] Juanpablo Hernandez MD [facility] [place] [address] 01/30/2025 1:30 PM EDT Appointment Hematology [place] [address] 01/30/2025 3:[address] [place] [address] Arturo Cordero MD [facility] [place] [address] 01/30/2025 4:15 PM EDT Office Visit Hematology [place] [address] Arturo Cordero MD [facility] [place] [address] documented as of this encounter Visit Diagnoses Not on filedocumented in this encounter Care Teams Outside Property Agent Relationship Specialty Start Date End Date Luis E Narayan MD [facility] [address] [place] [address] PCP - General Family Medicine 03/26/19 01/19/22 documented as of this encounter
--- OUTSIDE RECORDS SUMMARY | 2024-03-04 21:25 | XMS_ITS | Encounter Summary ---
Author Organization [facility] [place] [address] Care Team Providers Care Movers Name Role Phone Luis E Narayan MD Primary Care Provider [phone]- [phone] Encounter Details Date Type Department Care Team (Late st Contact Info) Description 08/21/2020 Telephone Family Medicine at [facility] [address] [place] [address] Prakashiker, Lacie L Social History Tobacco Use Types Packs/Day Years [...] * Telephone Encounter - Silvio Alonzo - 08/24/2020 8:12 AM EST Visit scheduled for today with a provider on the team due to patient not wanting to wait for PCP first available. * Telephone Encounter - Luis E Narayan MD - 08/21/2020 5:17 PM EST 1) pls schedule visit to review labs, cardiac testing, imaging. telehealth fine. 2) if she is referencing disability forms, I was unable to complete the forms as I do not have the necessary information. I did send back to the stem maker with that comment. My recommednation is for herto schedule with a physician who does disability evaluations. Most prenatal genetic counselor have a list of physicians who do that work. I am not sure who around here does. We can discuss at next visit if she wants. thanks * Telephone Encounter - Silvio Alonzo - 08/21/2020 3:15 PM EST [place] [facility] [place] Telephone Encounter - Thomas Tyson RN - 08/21/2020 2:36 PM EST Patient Alize called in today to request results from EKG, ECHO, and labs from [facility]. Patient identity confirmed by full name and . Patient reports she was seen at the ED at [facility] for chest pressure with sob. Patient states she still has minor chest pressure, but does not have sob. Patient denies Chest Pain and states she has nitroglycerin should chest pain begin. Requested for patient to go back to ED if she develops chest pressure with sob again. Patient reported understanding and agrees to plan of care. Patient also requests for Dr. Narayan to review the 2 letters sent to our office from her stem maker. Patient had no further questions or concerns anddid not want a follow up at this time. documented in this encounter Plan of Treatment Upcoming Encounters Date Type Department Care Team (Late st Contact Info) Description 03/20/2024 9:00 AM EDT TH Visit (TeleHealth) Sleep Center at [facility] [address] [place] [address] Denisse Hardwick, TEACHER HOME THERAPY SLEEP C[facility] 03/20/2024 2:00 PM EDT Clinical Support Family Medicine at [facility] [address] [place] [address] Julia Low, [facility] 05/01/2024 11:20 AM EDT Appointment Mammography/[place] [address] Rodney Padilla MD [address] [facility] [place], [place] [address] 05/01/2024 1:45 PM EDT Office [place] [address] Juanpablo Hernandez MD [facility] [place] [address] 01/30/2025 1:30 PM EDT Appointment Hematology [place] [address] 01/30/2025 3:[address] [place] [address] Arturo Cordero MD [facility] HEMATOLOGY [place] [address] 01/30/2025 4:15 PM EDT Office Visit Hematology and Oncology at [place] [phone] Arturo Cordero MD [facility] DR HEMATOLOGY [place] [address] documented as of this encounter Visit Diagnoses Not on filedocumented in this encounter Care Teams Movers Relationship Specialty Start Date End Date Luis E Narayan MD [facility] [address] [address] PCP - General Family Medicine 03/26/19 01/19/22 documented as of this encounter
--- OUTSIDE RECORDS SUMMARY | 2024-03-04 21:25 | XMS_ITS | Encounter Summary ---
Author Organization [facility] [place] [address] Care Team Providers Care Zanjero Name Role Phone Luis E Narayan MD Primary Care Provider Reason for Referral * Diagnostic Test (Routine) - Closed Specialty Diagnoses / Procedures Referred By Contac t Referred To Contact Radiology Diagnoses Malignant melanoma of conjunctiva, left Procedures CT Neck Soft Tissue w Contrast (Generic) Arturo Cordero MD [facility] [address] HEMATOLOGY [place] [address] [facility] [place] [address] Referral ID Status Reason Start Date Expiration Date V isits Requested Visits Authorized [id number] Closed Specialty Service Requested 09/15/2020 03/18/2022 1 1 * Diagnostic Test (Routine) - Closed Specialty Diagnoses / Procedures Referred By Contac t Referred To Contact Radiology Diagnoses Malignant melanoma of conjunctiva, left Procedures CT Chest Abdomen Pelvis w Contrast (Generic) Arturo Cordero MD [facility] [address] HEMATOLOGY [place] [address] [facility] [place] [address] Referral ID Status Reason Start Date Expiration Date V isits Requested Visits Authorized [id number] Closed Specialty Service Requested 09/15/2020 03/18/2022 1 1 Reason for Visit * Reason Comments Follow-up Encounter Details Date Type Department Care Team (Late st Contact Info) Description 09/15/2020 11:30 AM EST Office Visit Hematology [place] [address] Arturo Cordero MD [facility] [address] HEMATOLOGY [place] [address] Leandra Lopes APRN [facility] [place]OLOG[place] [address] Malignant melanoma of conjunctiva, left Social History [...] medical appointments or from getting medications? No 0 03/2021 In the past 12 months, has [...] Sign Reading Time Taken Comments Blood Pressure 155/63 09/15/2020 10:34 AM EST Pulse 73 09/15/2020 10:34 AM EST Temperature 36.4 ??C (97.5 ??F) 09/15/2020 10:[address] Respiratory Rate 20 09/15/2020 10:34 AM EST Oxygen Saturation 97% 09/15/2020 10:34 AM EST Inhaled Oxygen Concentration - - Weight 113.6 kg (250 lb 8 oz) 09/15/2020 10:34 A M EST Height 159.5 cm (5' 2.8) 09/15/2020 10:34 AM ES T Body Mass Index 44.66 09/15/2020 10:34 AM EST documented in this encounter Progress Notes * Arturo Cordero MD - 09/15/2020 11:30 AM EST Images from the original note were not included. [facility] FOLLOW UP NOTE REFERING PHYSICIAN: Dr. Juanpablo Hernandez DIAGNOSIS: Left eye conjunctival melanoma PATH: L eye conjunctival melanoma, depth 0.6mm, mitosis 1/mm2, No PNI or LVI, does not meet criteria for ulceration. Positive for PRAME immunostain. NF1 mutation, no BRAF, no CKIT CURRENT TX: Mitomycin-C eyedrop round 3 out of 3 weeks every other week, scheduled to complete thisFriday on 09/18/2020 status post excision on 05/14/2020 Plan for topical mitomycin-C Left partial nephrectomy on 06/28/[address] 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 Medina - 03/31/2020: saw her mascara molder Dr. 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 - 05/14/2020: Underwent excision of the limbal lesion which was positive for melanoma Referred to melanoma clinic on 05/26/2020 to discuss treatment/follow-up options - 06/12/2020: CT Neck/Chest/Abd/Pelvis and MRI brain without evidence of distant metastases Mitomycin-C eyedrop total 3 weeks/every other week will complete on 09/18/2020 HPI: Alize Gramajo is a 59 y.o. female with past medical history of left-sided renal cell carcinoma s/ppartial nephrectomy, type II diabetes, coronary artery disease, hyperlipidemia, hypertension, depression/anxiety, and TITO, who is presented to the oncology clinic on 05/26/2020 to discuss evaluation/management for her conjunctival melanoma. INTERVAL HISTORY: Alize presents in follow up with her daughter for left neck ultrasound. Clinically she is doing well except photosensitivity and eye pain due to mitomycin-C eyedrop. Occasional dizziness/vertigo. Otherwise no palpable lymph node. Overall no significant change in her daily activity except above-mentioned eye sensitivity and occasional dizziness. She is currently still smoking. REVIEW OF SYSTEMS: Constitutional: No fever, no fatigue, occasional dizziness. No headache. Eyes: Photosensitivity and eye pain in her left eye ENT: No hearing change Cardiovascular: Negative Respiratory: Negative Gastrointestinal: Negative, Genitourinary: Negative Musculoskeletal: No new joint pain, noted chronic lower back pain Skin: Negative Neurological: No focal weakness. Has chronic balance issues, memory issues and speech dysfunction for the past 1-1.5 years. Psychiatric: stable mood PAST MEDICAL HISTORY: Past Medical History: Diagnosis Date ??? Allergy ??? Antiplatelet or antithrombotic long-term use aspirin, plavix ??? Arthritis ??? Asthma uses inhalerswith good effect ??? Atherosclerosis of [place] coronary artery of [place] heart with angina pectoris 10/09/2007 History of [...] 3.47) performed by Juanpablo Hernandez MD at [facility] OSC ??? PRO EXCIS CORNEA LESN Left 05/14/2020 EXCISION OF LESION, CORNEA, EXCEPT PTERYGIUM (WRVU 7.5) performed by Juanpablo Hernandez MD at [facility] OSC ??? PRO LAP, PARTIAL NEPHRECTOMY Left 06/28/2019 LAPAROSCOPY, PARTIAL NEPHRECTOMY, ROBOTIC ASSIST (WRVU 27.41) performed by Avila Medina MD at [facility] MAIN OR ??? PRO PLACE AMNIOTIC MEMBRANE OCULAR SURFACE;SINGLE LAYER SUTURED Left 05/14/2020 PLACEMENT OF AMNIOTIC MEMBRANE ON THE OCULAR SURFACE,SINGLE LAYER,SUTURED (WRVU 2.5) performed by Juanpablo Hernandez MD at [facility] OSC MEDS: Blood-Glucose Meter, LORazepam, albuterol sulfate, amLODIPine, aspirin EC, blood sugar diagnostic strips, budesonide-formoteroL, busPIRone, clopidogreL, fluticasone propionate, lamoTRIgine, lancets, loratadine, losartan, metFORMIN, metoprolol succinate XL, moxifloxacin, nicotine, nitroGLYcerin, omeprazole, prednisoLONE acetate, simvastatin, and traZODone ALLERGY: Allergies Allergen Reactions [...] ??? Tobacco comment: Not today. Very anxious Substance and Sexual Activity ??? Alcohol use: No ??? Drug use: No ??? Sexual activity: Not on file Other Topics Concern ??? Not on file Social History Narrative legally from spouse 2012. 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 in good mood and spirits BP 155/63 (Patient Position: Sitting) Pulse 73 Temp 36.4 ??C (97.5 ??F) (Temporal) Resp 20 Ht 159.5 cm (5' 2.8) Wt 113.6 kg (250 lb 8 oz) SpO2 97% BMI 44.66 kg/m?? Eyes: Not icteric, left eye injected most likely due to mitomycin-C eyedrops Left upper lacrimal duct plug appears to be fallen off. Oral: Not examined Neck: Supple. No lymphadenopathy. Lungs: Bilaterally clear to auscultation, No wheezing, No crackles Heart: Regular rate and rhythm. Abdomen: Soft, no tenderness, no mass, normal active bowel sounds. Extremities: No edema. Skin: No rash Neuro: No focal weakness LABS: From 09/11/2020 - CBC unremarkable - CMP unremarkable IMAGING STUDIES: Left neck ultrasound on 09/15/2020 No sonographically [...] complete on 09/18/2020 according to the patient. Overall clinically she is doing well except mitomycin-C eyedrops related photosensitivity and irritability of left eye. Today's left neck ultrasound result is encouraging. I recommended her to stop by doctors David's office to check left upper lacrimal duct plug. The importance of smoking cessation was discussed. We will bring her back in [address] scan including neck. The patient was instructed to call us with any new symptoms or concerns. Arturo Cordero MD documented in this encounter Plan of Treatment Upcoming Encounters Date Type Department Care Team (Late st Contact Info) Description 03/20/2024 9:00 AM EDT TH Visit (TeleHealth) Sleep Center at [facility] [address] [place] [phone] Denisse Hardwick, [facility] 03/20/2024 2:00 PM EDT Clinical Support Family Medicine [facility] [address] [place] [phone] Julia Low, [facility] 05/01/2024 11:20 AM EDT Appointment Mammography/DXA at [place] [phone] Rodney Padilla MD [address] [place] [place] [address] 05/01/2024 1:45 PM EDT Office Visit Ophthalmology at [place] [phone] Juanpablo Hernandez MD [facility] [place] [address] 01/30/2025 1:30 PM EDT Appointment Hematology [place] [address] 01/30/2025 3:[address] Scan at [place] [phone] Arturo Cordero MD [facility] [address] [place] [address] 01/30/2025 4:15 PM EDT Office Visit Hematology [place] [address] Arturo Cordero MD [facility] [address] HEMATOLOGY [place] [address] documented as of this encounter Results * [...] who have questions please contact the health clinical care manager that requested your imaging first. ? Narrative [...] patients who have questions please contactthe health clinical care manager that requested your imaging first. Electronically signed by: Clarisa Rajput MD, [facility]([phone]), at 12/18/2020 9:41 AM Arturo Cordero MD IMG CT ORDERABLES [...] who have questions please contact the health clinical care manager that requested your imaging first. ? Electronically signed by: Juanpablo Chris MD, [facility] ([phone]), at 12/17/2020 4:53 PM Narrative 12/17/2020 4:53 PM EDT EXAMINATION: CT [...] patients who have questions please contactthe health clinical care manager that requested your imaging first. Electronically signed by: Juanpablo Chris MD, [facility]([phone]), at 12/17/2020 4:53 PM Arturo Cordero MD IM CT ORDERABLES * Lactate Dehydrogenase (12/17/2020 12:45 PM EDT) Lactate Dehydrogenase 205 110 - 220 unit/L [facility] Blood 12/17/2020 12:4 5 PM EDT 12/17/2020 12:51 PM EDT Narrative Resulting Agency Comment Spec In Lab Arturo Cordero MD CHEMISTRY ORDERABLES [facility] [place] [address] * (ABNORMAL) Comprehensive metabolic panel (non-fasting) (12/17/2020 12:45 PM EDT) Glucose 220(H) 65 - 199 mg/dL [facility] Comment:Diabetes: >=200 mg/d L plus symptoms Blood Urea Nitrogen 15 8 - 18 mg/dL [facility] Creatinine 0.94 0.70 - 1.20 mg/dL [facility] Sodium 139 135 - 145 mmol/L [facility] Potassium 4.2 3.5 - 5.0 mmol/L [facility] Comment: Please note: ??Patients with WBC >100,000 may have falsely elevated Potassium levels. ??For accurate Potassium quantification in these patients send serum separator tube (gold top) for subsequent determinations. ??Contact the Clinical Chemistry Laboratory if there are any questions. Chloride 104 98 - 107 mmol/L [facility] Carbon Dioxide 26 22 - 31 mmol/L [facility] Anion Gap 9 5 - 15 mmol/L [facility] Calcium 9.5 8.5 - 10.5 mg/dL [facility] Protein, Total 6.7 6.1 - 8.0 gm/dL [facility] Albumin 4.2 3.2 - 5.2 gm/dL [facility] Aspartate Aminotransferase 21 0 - 30 unit/L [facility] Alanine Aminotransferase 24 0 - 30 unit/L [facility] Alkaline Phosphatase 97 35 - 105 unit/L [facility] Bilirubin, Total 0.5 0.2 - 1.3 mg/dL [facility] Est Glomerular Filtration Rate 65 >=60 mL/min/1. 73 m?? [facility] [...] In Lab Arturo Cordero MD CHEMISTRY ORDERABLES [facility] [place] [address] documented in this encounter Visit Diagnoses Diagnosis Malignant melanoma of conjunctiva, left Malignant melanoma of conjunctiva, left documented in this encounter Care Teams Zanjero Relationship Specialty Start Date End Date Luis E Narayan MD [facility] [address] [facility] [facility] [address] PCP - General Family Medicine 03/26/19 01/19/22 documented as of this encounter
--- OUTSIDE RECORDS SUMMARY | 2024-03-04 21:25 | XMS_ITS | Encounter Summary ---
Author Organization [facility] Address [facility] [place] [address] Care Team Providers Care Voice Professor Name Role Phone Luis E Narayan MD Primary Care Provider [phone]- [phone] Reason for Visit * Reason Onset Date Comments Other 08/21/2020 Encounter Details Date Type Department Care Team (Late st Contact Info) Description 08/21/2020 Telephone Family Medicine at [facility] [address] [place] [address] Deana Akers Other Social History Tobacco Use Types Packs/Day [...] encounter Miscellaneous Notes * Telephone Encounter - Luis E Narayan MD - 08/21/2020 5:21 PM EST Addressed in separte encounter * Telephone Encounter - Deana Akers - 08/21/2020 3:28 PM EST Message: Patient called and is hoping to speak with Thomas regarding copies of test results. Patient states [facility] staff is faxing over these results to the office today . FYI. Ask caller their first and last name and relationship to the patient: self Best time to call back: anytime Ok to leave a message: y Ok to send - message: n Offered Appointment: n BARBIE/Nurse/Hotbed Operator contacted via: Message: y Call: n Pager: n documented in this encounter Plan of Treatment Upcoming Encounters Date Type Department Care Team (Late st Contact Info) Description 03/20/2024 9:00 AM EDT TH Visit (TeleHealth) Sleep Center at [facility] [address] [place] [phone] Denisse Hardwick, [facility] 03/20/2024 2:00 PM EDT Clinical Support Family Medicine at [facility] [address] [place] [phone] Julia Low, [facility] 05/01/2024 11:20 AM EDT Appointment Mammography/[place] [phone] Rodney Padilla MD [address] [facility] [place] [address] 05/01/2024 1:45 PM EDT Office [place] [address] Juanpablo Hernandez MD [facility] [place] [address] 01/30/2025 1:30 PM EDT Appointment Hematology [place] [address] 01/30/2025 3:[address] [place] [address] Arturo Cordero MD [facility] [place] [address] 01/30/2025 4:15 PM EDT Office Visit Hematology [place] [address] Arturo Cordero MD [facility] [place] [address] documented as of this encounter Visit Diagnoses Not on filedocumented in this encounter Care Teams Voice Professor Relationship Specialty Start Date End Date Luis E Narayan MD [facility] [address] [place] [address] PCP - General Family Medicine 03/26/19 01/19/22 documented as of this encounter
--- OUTSIDE RECORDS SUMMARY | 2024-03-04 21:25 | XMS_ITS | Encounter Summary ---
Author Organization [facility] Address [address] [facility] [place] [address] Care Team Providers Care Molding Cutter Name Role Phone Luis E Narayan MD Primary Care Provider [phone]- [phone] Reason for Visit * Reason Onset Date Comments Triage 09/14/2020 Encounter Details Date Type Department Care Team (Late st Contact Info) Description 09/14/2020 Telephone Family Medicine at [facility] [address] [place] [address] Wendy [place] Triage Social History Tobacco Use Types Packs/Day Years [...] Telephone Encounter - Thomas Tyson RN - 09/14/2020 8:46 AM EST Chief Complaint: ED Follow Up for Chest Pain Patient Alize Gramajo identified by full name and Onset: 09/11/20 Patient Report: Patient reports she was seen on 09/11/20 for chest pressure. Patient states she is still having some chest pressure, but her main concerns today are dizziness and sore throat. Patient states she has had a sore throat intermittently for over a month, got a negative COVID Test at [facility] when the symptoms when started. Patient denies all urgent signs and symptoms at this time. Patient requested appointment on 09/15/20 to coordinate with other appointments. Appointment scheduled with Leora COLVIN on 09/15/20 @ 0994. Patient reported understanding and agrees to plan of care. Patient had no further questions or concerns regarding care for this RN. Plan of care []Emergency Patient denies sudden onset of weakness or numbness in her face/arms/legs on one side of her body, difficulty speaking or walking, confusion, facial droop, fainting spells or loss of consciousness, bradycardia, tachycardia, irregular heart beat, severe headache, change in vision, fever with pale skin and weakness []Medical Care with 2-4 hours Patient denies recent trauma or blow to the head within the last 48 hours, recent history of severevomiting/diarrhea/bleeding, history of diabetes []Medical Care within 24 hours earache, ringing in the ears or loss of hearing, persistent light-headedness for greater than 3 days, recent abrupt cessation of drugs/alcohol/caffeine []Home Care Instructions and Follow up if patient does not improve Dizziness interferes with activity, history of dieting and no improvement after eating, dizziness occurs after new medication, increase in stress, dizziness occurs with consumption of alcohol, dizziness occurs when moving the head. []Home Care Instructions given to patient: if dehydrated drink plenty of water, limit intake of caffeinated beverages and alcohol, sit up or stand slowly and avoid sudden changes in posture, during the dizzy spell reach out and touch something solid then lie flat and take deep breathes for a few minutes. Home Care Instructions provided per: [x] [facility] Telephone Triage Protocols for Nurses / edition. [] Sotelo: Pediatric Telephone protocols edition Plan: [] Will review with PCP/COS and call patient back [x] Appointment scheduled date: 09/15/20 @ 1330 With: Leora COLVIN Patient reports any of the following NEW symptoms and is in need of urgent eval instruct to wear a mask NEGATIVE COVID TEST since start of symptoms [] Cough (non-productive) [] Shortness of breath [...] is advised to seek care based upon the development of plan of care related signs and symptoms Does the Patient agree and understand the instructions provided: yes Note routed to: Leora COLVIN For review. * Telephone Encounter - Thomas Tyson RN - 09/14/2020 8:28 AM EST Attempted to reach out to patient Alize to help her schedule an appointment for an ED follow up for Chest Pain. Left message on [employer] voicemail to call back. * Telephone Encounter - Wendy [place] - 09/14/2020 8:16 AM EST Please call patient to discuss Emergency Room Follow Up Reason for the Emergency Room visit: Chest Pain Name of the facility where patient was seen: [facility] Symptomatic now: y Other information:Pt states she gets dizzy when she lays flat or tilts her head back (not currentlyexperiencing). Still having sore throat and ear issues. Caller and Relationship (if other than patient): Self Best time to call back: any Okay to leave a message: y Okay to send - message: n Nurse contacted via: Message: y Call: n Pager: n documented in this encounter Plan of Treatment Upcoming Encounters Date Type Department Care Team (Late st Contact Info) Description 03/20/2024 9:00 AM EDT TH Visit (TeleHealth) Sleep Center at [facility] [address] [place] [phone] Denisse Hardwick, [facility] 03/20/2024 2:00 PM EDT Clinical Support Family Medicine at [facility] [address] [place] [address] Julia Low [facility] 05/01/2024 11:20 AM EDT Appointment Mammography/[place] [address] Rodney Padilla MD [address] [place] [address] 05/01/2024 1:45 PM EDT Office [place] [address] Juanpablo Hernandez MD [facility] [place] [address] 01/30/2025 1:30 PM EDT Appointment Hematology and Oncology at [place] [address] 01/30/2025 3:[address] [place] [address] Arturo Cordero MD [facility] HEMATOLOGY [place] [address] 01/30/2025 4:15 PM EDT Office Visit Hematology [place] [address] Arturo Cordero MD [facility] DR HEMATOLOGY [place] [address] documented as of this encounter Visit Diagnoses Not on filedocumented in this encounter Care Teams Molding Cutter Relationship Specialty Start Date End Date Luis E Narayan MD [facility] [address] [place] [address] PCP - General Family Medicine 03/26/19 01/19/22 documented as of this encounter
--- OUTSIDE RECORDS SUMMARY | 2024-03-04 21:25 | XMS_ITS | Encounter Summary ---
[facility] Organization [facility] [place] [address] Care Team Providers Care Dictating Transcribing Machine Servicer Name Role Phone Luis E Narayan MD Primary Care Provider [phone]- [phone] Encounter Details Date Type Department Care Team (Late st Contact Info) Description 08/17/2020 External [place] [phone] Social History Tobacco Use Types Packs/Day Years [...] EDT TH Visit (TeleHealth) Sleep Center at [facility] [address] [place] [phone] Denisse Hardwick, [facility] 03/20/2024 2:00 PM EDT Clinical Support Family Medicine at [facility] [address] [place] [phone] Julia Low [facility] 05/01/2024 11:20 AM EDT Appointment Mammography/[place] [address] Rodney Padilla MD [address] [place] [id number] 05/01/2024 1:45 PM EDT Office Visit Ophthalmology at [place] [address] Juanpablo Heranndez MD [facility] [place] [address] 01/30/2025 1:30 PM EDT Appointment Hematology and Oncology at [place] [address] 01/30/2025 3:[address] Scan at [place] [address] Arturo Cordero MD [facility] [address] [place] [address] 01/30/2025 4:15 PM EDT Office Visit Hematology and Oncology at [address] Artuor Cordero MD [facility] [address] [place] [address] documented as of this encounter Procedures Procedure Name Priority Date/Time Associated Diagnosis Comments ECG SCAN Routine 08/17/2020 documented in this encounter Results * Scan Doc: ECG (08/17/2020) Historical Provider MD MEDIA MGR SCAN EX T ORDR/RSLT documented in this encounter Visit Diagnoses Not on filedocumented in this encounter Care Teams Dictating Transcribing Machine Servicer Relationship Specialty Start Date End Date Luis E Narayan MD [facility] [place] [address] PCP - General Family Medicine 03/26/19 01/19/22 documented as of this encounter
--- OUTSIDE RECORDS SUMMARY | 2024-03-04 21:25 | XMS_ITS | Encounter Summary ---
[place] [address] Care Team Providers Care Electric Freight Car Operator Name Role Phone Luis E Narayan MD Primary Care Provider Encounter Details Date Type Department Care Team (Late st Contact Info) Description 10/07/2020 Telephone [place] [phone] Malika Ye Social History Tobacco Use Types [...] in a senior care (including now)? No 09/15/2020 Sex and Gender Information Value Date Recorded Sex Assigned at Not on file Gender Identity Not on file Sexual Orientation Not on file documented as of this encounter Miscellaneous Notes * Telephone Encounter - Malika Ye - 10/07/2020 10:40 AM EDT Ms. Gramajo reports she has not really tried to quit as she has a lot going on with housing. She is currently living with her daughter and finds it to be very stressful with children around. She uses her smoking time as a break. We discussed doing practice quits. She has the nicotine replacement supplies she can try. She wasagreeable to talking next week to follow up on her progress with making practice quits. documented in this encounter Plan of Treatment Upcoming Encounters Date Type Department Care Team (Late st Contact Info) Description 03/20/2024 9:00 AM EDT TH Visit (TeleHealth) Sleep Center at [facility] [address] [place] [phone] Denisse Hardwick, [facility] 03/20/2024 2:00 PM EDT Clinical Support Family Medicine at [facility] [address] [place] [phone] Julia Low, [facility] 05/01/2024 11:20 AM EDT Appointment Mammography/DXA at [place] [address] Rodney Padilla MD [address] [place] [address] 05/01/2024 1:45 PM EDT Office Visit Ophthalmology at [place] [address] Juanpablo Hernandez MD [facility] [place] [address] 01/30/2025 1:30 PM EDT Appointment Hematology and Oncology at [place] [address] 01/30/2025 3:[address] Scan at [place] [address] Arturo Cordero MD [facility] DR H[place]AT[place] [address] 01/30/2025 4:15 PM EDT Office Visit Hematology [place] [phone] Arturo Cordero MD [facility] DR [place] [address] documented as of this encounter Visit Diagnoses Not on filedocumented in this encounter Care Teams Electric Freight Car Operator Relationship Specialty Start Date End Date Luis E Narayan MD [facility] [address] [facility] [place] [address] PCP - General Family Medicine 03/26/19 01/19/22 documented as of this encounter
--- OUTSIDE RECORDS SUMMARY | 2024-03-04 21:25 | XMS_ITS | Encounter Summary ---
Author Organization [facility] Address [facility] [place] [address] Care Team Providers Care Loft Worker Name Role Phone Luis E Narayan MD Primary Care Provider Reason for Visit * Reason Comments Tearing Encounter Details Date Type Department Care Team (Late st Contact Info) Description 09/15/2020 12:15 PM EST Office [place] [phone] Marco Antonio Godwin MD [facility] [place] [address] Malignant melanoma of conjunctiva, left Social History [...] as of this encounter Progress Notes * Marco Antonio Godwin MD - 09/15/2020 12:15 PM EST ASSESSMENT: 1. Malignant melanoma of conjunctiva, left Urgent visit. Patient thinks upper punctal plug fell out OS. She is currently doing QID MMC for conj melanoma. 3 days remain. Visual Acuity Visual Acuity (Snellen - Linear) Right Left Dist cc 20/20 20/50 +2 Dist ph cc 20/40 Correction: Glasses OS: upper punctal plug is not present. Lower is present. PLAN: She needs to get to her PCP appointment at [facility]. We will arrange for punctal plug placement later this afternoon or tomorrow. OK to skip a dose of the MMC in anticipation of plug being replaced. Sooner MYRA Maria. MD Tato documented in this encounter Plan of Treatment Upcoming Encounters Date Type Department Care Team (Late st Contact Info) Description 03/20/2024 9:00 AM EDT TH Visit (TeleHealth) Sleep Center at [facility] [address] [place] [address] Denisse Hardwick, [facility] 03/20/2024 2:00 PM EDT Clinical Support Family Medicine at [facility] [address] [place] [address] Julia Low, [facility] 05/01/2024 11:20 AM EDT Appointment Mammography[place] [address] Rodney Padilla MD [address] [facility] [facility] [place] [address] 05/01/2024 1:45 PM EDT Office Visit Ophthalmology at [place] [phone] Juanpablo Hernandez MD [facility] [address] 01/30/2025 1:30 PM EDT Appointment Hematology and Oncology at [place] [phone] 01/30/2025 3:[address] Scan at [place] [phone] Arturo Cordero MD [facility] HEMATOLOGY [place] [address] 01/30/2025 4:15 PM EDT Office Visit Hematology [place] [address] Arturo Cordero MD [facility] HEMATOLOGY [place] [address] documented as of this encounter Visit Diagnoses Diagnosis Malignant melanoma of conjunctiva, left documented in this encounter Care Teams Loft Worker Relationship Specialty Start Date End Date Luis E Narayan MD [facility] [place] [address] PCP - General Family Medicine 03/26/19 01/19/22 documented as of this encounter
--- OUTSIDE RECORDS SUMMARY | 2024-03-04 21:25 | XMS_ITS | Encounter Summary ---
[place] [address] Care Team Providers Care Bread Icer Name Role Phone Luis E Narayan MD Primary Care Provider Reason for Visit * Reason Comments Chest Pain Encounter Details Date Type Department Care Team (Late st Contact Info) Description 09/11/2020 2:09 PM EST - 09/11/2020 5:51 PM EST [place] [address] Hair Tanner MD [facility] [place] [address] Costochondritis; Constipation, unspecified constipation type Discharge Disposition: Home Social History Tobacco [...] Sign Reading Time Taken Comments Blood Pressure 156/68 09/11/2020 5:30 PM EST Pulse 78 09/11/2020 5:30 PM EST Temperature 35.7 ??C (96.3 ??F) 09/11/2020 2:01 PM ES T Respiratory Rate 19 09/11/2020 5:30 PM EST Oxygen Saturation 96% 09/11/2020 5:30 PM EST Inhaled Oxygen Concentration - - Weight 113.4 kg (250 lb) 09/11/2020 2:01 PM EST Height 160 cm (5' 3) 09/11/2020 2:01 PM EST Body Mass Index 44.29 09/11/2020 2:01 PM EST documented in this encounter Discharge Instructions * Discharge Instructions* Stephani Ramirez MD - 09/11/2020 5:31 PM EST You were evaluated in the Emergency Department for chest pain. Your blood tests and EKG did not show a problem with your heart. Imaging of your abdomen did not show any obstruction. Please take laxatives if you continue to feel constipated. Please return to the ED for further evaluation if you develop any new or worsening symptoms including fever, chills, chest pain, SOB, abdominal pain, nausea, vomiting, inability to pass stool or gas. Please follow up with your PCP within 1 week as needed. * Attachments The following attachments cannot be sent through Care Everywhere. * Costochondritis (Guamanian) * Constipation (Guamanian) documented in this encounter Medications at Time of Discharge Medication Sig Dispensed Refills Start Date End Date traZODone (Desyrel) 100 mg Tablet Take 1 tablet by mouth nightly. 90 tablet 3 06/26/2020 aspirin EC 81 mg Tablet, Delayed Release (E.C.) Take 81 mg by mouth daily. fluticasone propionate (FLONASE) 50 mcg/actuation Villalba, Suspension 1 spray by Each Nare route [...] times daily. 1 Inhaler 11 04/20/2020 05/26/2021 loratadine (Claritin) 10 mg Tablet Take 1 tablet by mouth daily. 90 tablet 3 09/05/2019 09/14/2020 metoprolol succinate XL (Toprol XL) 25 mg Tablet Sustained Release 24 hr Take 1 tablet by mouth daily. 90 tablet 3 09/05/2019 09/14/2020 lamoTRIgine (LaMICtal) 100 mg TabletIndications:Bipol ar affective disorder in remission Take 1 tablet by mouth daily. 90 tablet 3 08/05/2019 06/20/2023 lancets Misc Use for twice daily testing 100 each 11 08/05/2019 06/14/2021 blood sugar diagnostic strips Strip Use as instructed 100 each 12 08/05/2019 06/14/2021 Blood-Glucose Meter Misc Use twice daily 1 each 08/05/2019 06/14/2021 clopidogrel (PLAVIX) 75 mg Tablet Take 1 tablet by mouth daily. Restart post-operatively on 07/05 90 tablet 3 07/05/2019 09/14/2020 nicotine (NICODERM CQ) 21 mg/24 [address] 1 patch onto the skin daily as needed. 30 patch 11 06/13/2019 06/14/2021 nitroGLYcerin (NITROSTAT) 0.4 mg Tablet, Sublingual Place 1 tablet under the tongue See Admin Instructions. 30 tablet 04/09/2019 07/05/2021 ALBUTEROL SULFATE (PROVENTIL HFA INHL) 07/14/2010 021 documented as of this encounter ED Notes * Elías Miranda NRP - 09/11/2020 4:03 PM EST Assisted patient to and from the bedside commode. She denied any dizziness with the movement * Elías Miranda NRP - 09/11/2020 3:34 PM EST Assisted patient up to the bedside commode> She had some dizziness when she was in X-Ray when they sat her up from lying down. * Connor Gutierrez RN - 09/11/2020 3:00 PM EST 1500- EKG done. IV and labs sent. Pt to XR. * Stephani Ramirez MD - 09/11/2020 2:35 PM EST ED Resident Note Alize Gramajo is an 59 y.o. female who presents to the ED with: Chief Complaint Patient presents with ??? Chest Pain I saw this patient on 09/11/2020. History is from the patient at the bedside and chart review. HPI Alize Gramajo is a 59 y.o. female with history of CAD (stents placed age 29), T2DM w/ peripheral neuropathy, COPD, and recent viral illness who presents to the Emergency Department localized, non-radiating, inferior sternal chest pain for the past week. Pt states that she has also felt bloated, although she continues to have bowel movements. Pt has been taking antacids and belching, which have been relieving her symptoms to some degree. Her pain is currently 6- 7/10 but has been as severe as 10/10. Notably, pt was recently seen at [facility] on 08/17 for unrelated chest pressure. She had mild stable troponin elevations and unremarkable ECHO documented below in ED course. Denies other chest pain today, SOB, nausea, vomiting, abd pain, dysuria, hematuria, bloody/black stool, fever, chills. PMH: Past Medical History: Diagnosis Date ??? Allergy ??? Antiplatelet or antithrombotic long-term use aspirin, plavix ??? Arthritis ??? Asthma uses inhalerswith good effect ??? Atherosclerosis of [place] coronary artery of [place] heart with angina pectoris 10/09/2007 History of [...] I think it's from the pain medication PSH: Past Surgical History: Procedure Laterality Date ??? SECTION ??? CORONARY ANGIOPLASTY WITH STENT PLACEMENT Placed at ??? 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 KNEE SURGERY ??? LASER SURGERY ??? PRO DESTR CORNEAL LESN,CRYO,PHOTO,THERM Left 05/14/2020 DESTRUCTION OF LESION OF CORNEA BY CRYOTHERAPHY (WRVU 3.47) performed by Juanpablo Hernandez MD at [facility] OSC ??? PRO EXCIS CORNEA LESN Left 05/14/2020 EXCISION OF LESION, CORNEA, EXCEPT PTERYGIUM (WRVU 7.5) performed by Juanpablo Hernandez MD at [facility] OSC ??? PRO LAP, PARTIAL NEPHRECTOMY Left 06/28/2019 LAPAROSCOPY, PARTIAL NEPHRECTOMY, ROBOTIC ASSIST (WRVU 27.41) performed by Aivla Medina MD at [facility] MAIN OR ??? PRO PLACE AMNIOTIC MEMBRANE OCULAR SURFACE;SINGLE LAYER SUTURED Left 05/14/2020 PLACEMENT OF AMNIOTIC MEMBRANE ON THE OCULAR SURFACE,SINGLE LAYER,SUTURED (WRVU 2.5) performed by Juanpablo Hernandez MD at [facility] OSC Social History:1PPD smoker, non-drinker, no other drug use Review of Systems: Review of Systems 10 point review of systems negative except as per HPI Physical Exam: Patient Vitals for the past 24 hrs: BP Temp Temp src Pulse Resp SpO2 Height Weight 09/11/20 1730 156/68 -- -- 78 19 96 % -- -- 09/11/20 1630 150/63 -- -- 72 17 94 % -- -- 09/11/20 1600 149/68 -- -- 94 22 -- -- -- 09/11/20 1559 -- -- -- 79 16 97 % -- -- 09/11/20 1530 133/68 -- -- 75 16 98 % -- -- 09/11/20 1430 156/83 -- -- 74 15 95 % -- -- 09/11/20 1401 (!) 185/105 35.7 ??C (96.3 ??F) Temporal 80 20 100 % 160 cm (5' 3) 113.4 kg (250 lb) Physical Exam General: awake, alert, NAD HEENT: Normocephalic, atraumatic. L eye: scleral injection (chronic 2/2 chemotherapy per pt); R eyeunremarkable Neck: supple. Resp: Breath sounds present bilaterally, no wheezes, rales, rhonchi. Chest: Bilateral chest rise. Focal ttp over xiphoid process Cardio: difficult to auscultate given body habitus but regular rate and rhythm with no murmurs GI: Obese, Soft. No tenderness on palpation x4 quadrants. Extremities: Long bones stable. Skin: Warm and well perfused. Neuro: Moves all extremities. Psych: Normal judgment and appropriate affect. ED Course: - Patient seen under the supervision of the attending physician. - Medications, allergies, and past medical history reviewed. Troponin at OSH: Troponin I August 17, 2020 8:27pm 0.09 ng/mL Above high normal Echo from OSH: Date of Exam: 08/20/20 Sex: F Admission Date: 08/20/20 : 1960 Age: 59 Exam(s) a US:US echocardiogram APPROVED REPORT EXAM: Comprehensive 2D, Doppler, and color-flow Echocardiogram Patient Location: Out-Patient Licensed Psychologist Manager: Arlen Coker RDCS (AE) Indications: Chest pain, SOB, Elevated Troponin Other Information Study Quality: Adequate Conclusion Left Ventricle : The left ventricle is normal size. The left ventricular systolic function is normal. The left ventricular ejection fraction is within the normal range. There is normal left ventricular wall thickness. There is normal LV segmental wall motion. The left ventricular diastolic function is normal. LVEF is 55%. Right Ventricle : The right ventricle is normal size. The right ventricular systolic function is normal. Atria : The left atrium size is normal. The right atrium size is normal. Mitral Valve : The mitral valve is normal in structure. Mild mitral regurgita tion. No evidence of mitral valve stenosis. Great Vessels : The aortic root is normal in size. The ascending aorta is mildly dilated. IVC is normal in size and collapses >50% with inspiration. See remainder of report for further details. Recent Results (from the past 24 hour(s)) Basic Metabolic Panel (non-fasting) Result Value Ref [...] Ref Range Gold Hold Sample in lab. Results for orders placed or performed during the hospital encounter of 09/11/20 XR Chest One View (Exam End: 09/11/2020 2:50 PM) Impression No acute cardiopulmonary pathology. I have personally reviewed the image(s) and the resident's interpretation and agree with the findings, Chantal Ley MD at 09/11/2020 3:52 PM Thank you for letting us participate in the care of this patient. For questions regarding this report, please contact the number below. Electronically signed by: Chantal Ley MD, [facility] ([phone]), at 09/11/2020 3:52 PM XR Abdomen Flat & Upright (Exam End: 09/11/2020 3:15 PM) Impression 1. Nonobstructive bowel gas pattern. 2. Moderate colonic stool burden. I have personally reviewed the image(s) and the resident's interpretation and agree with the findings, Chuy Tobar MD at 09/11/2020 3:26 PM Thank you for letting us participate in the care of this patient. For questions regarding this report, please contact the number below. Electronically signed by: Chuy Tobar MD, [facility] ([phone]), at 09/11/2020 3:26 PM Assessment and Plan: MDM 59 y.o. female with hx CAD, COPD, T2DM presents w/ bloating and focal inferior sternal chest pain. Assessment: CBC and CMP benign. EKG/trop unremarkable; not concerning for ACS. KUB shows no obstruction. Lipasenot c/w pancreatitis. Record review from OSH showed mild troponin elevation c/w pt's history and re-assuring echocardiogram on 08/20. Deferred serial troponin given chest wall tenderness, benign EKG, and recent echo. Plan: - Discharge home. Take OTC laxatives as needed. - Follow up with PCP w/in 1 week as needed. Stephani Ramirez MD Resident 09/11/201901 Associated attestation - Hair Tanner MD - 09/13/2020 4:47 PM EST ED ATTENDING ATTESTATION NOTE The patient was seen in conjunction with Dr. Ramirez, the resident physician. I have independently performed the smith portions of the history and physical exam. I have reviewed the nursing notes, vitalsigns, and all diagnostic studies personally including labs, imaging studies and EKGs. I have discussed the details of the case with the resident and agree with the assessment and plan as described in the resident note unless noted otherwise. Brief Summary: 59-year-old female with coronary artery disease and diabetes presents with 1 week history of persistent localized discomfort in the area of her xiphoid and impression of abdominal bloating. Chest pain is localized to the xiphoid, there is no radiation, there is no associated shortness of breath, diaphoresis, palpitations, lower extremity edema. She states that she also feels very bloated but denies any localized abdominal pain, nausea or vomiting. She continues to have bowel movements. She has some flatus that she states is decreased and she reports modest relief with belching and with antacids. Of note she had recent work-up at an outside hospital which included a normal echo. On exam, she is well-appearing with exquisite tenderness localized to the xiphoid process which she states reproduces her chest pain. Abdomen is large with mild tenderness throughout but no localized tenderness. Bowel sounds are normal. Labs including troponin are normal, EKG reviewed by me is unremarkable, and abdominal series reviewed by me shows no evidence of obstruction. Final Assessment: Although patient has risk factors for coronary artery disease, work-up in the setting of 1 week of symptoms includes normal EKG and troponin making cardiac ischemia extremely unlikely. Physical exam is very suggestive of musculoskeletal etiology. Nothing at this time to suggest cardiac ischemia, significant pericardial effusion, pulmonary embolism, dissection, pneumothorax, or other emergent process. Abdominal bloating. Nothing by history, exam, or work-up to suggest occult obstruction or other acute surgical process at this time. Have you asked a patient their goals of care (ie. what matters)? No Did this case involve critical care? No * Mal Partida PA - 09/11/2020 1:59 PM EST PROVIDER TRIAGE NOTE Patient: Alize Gramajo Age (): 59 y.o. (1960) CC: Chest Pain HPI: Alize Gramajo is a 59 y.o. female with PMH significant for CAD, s/p multiple stents, anxiety, HTN,HLD, diabetes, and melanoma of the left eye, who presented to the ED for Chest pressure. Says she has been 'fighting it all week'. Pressure is constant but not worse with exertion. Went to a PCP visit earlier and was told to come to the ED. No nausea, vomiting or diaphoresis. Pain does not radiate.Says pressing on her chest makes the pain worse. COVID-19 Screening: Symptoms [] Fever [] Cough [] SOB [x] None Exposure [] Recent travel outside [place] [] Contact with known or suspected positive individuals [x] None PE: There were no vitals taken for this visit. Patient well-appearing, no acute distress. PLAN: Cardiac labs, CXR and aspirin ordered. Repeat examination, obtain further diagnostics as indicated,and ongoing evaluation/management per ED provider. Mal Partida PA 09/11/20 1407 documented in this encounter Miscellaneous Notes * ED Triage - Anthony Richardson RN - 09/11/2020 2:00 PM EST CC: Chest pressure. 12/17 Pt sent to Urgent Care from [facility]. Pt sent ED from Urgent Care with print out of normal EKG . Pt A+Ox4, respirations even and unlabored, PWD, VSS with HTN, NAD. documented in this encounter Plan of Treatment Upcoming Encounters Date Type Department Care Team (Late st Contact Info) Description 03/20/2024 9:00 AM EDT TH Visit (TeleHealth) Sleep Center at [facility] [address] [place] [address] Denisse Hardwick [facility] 03/20/2024 2:00 PM EDT Clinical Support Family Medicine at [address] [place] [address] Julia Low [facility] 05/01/2024 11:20 AM EDT Appointment Mammography/DXA at [place] [phone] Rodney Padilla MD [address] [place] [address] 05/01/2024 1:45 PM EDT Office Visit Ophthalmology at [place] [phone] Juanpablo Hernandez MD [facility] [place] [address] 01/30/2025 1:30 PM EDT Appointment Hematology and Oncology at [place] [phone] 01/30/2025 3:[address] Scan at [place] [phone] Arturo Cordero MD [facility] HEMATOLOGY [place] [address] 01/30/2025 4:15 PM EDT Office Visit Hematology and Oncology at [place] [phone] Arturo Cordero MD [facility] HEMATOLOGY [place] [address] documented as of this encounter Procedures Procedure Name Priority Date/Time Associated Diagnosis Comments XR ABDOMEN FLAT AND UPRIGHT STAT 09/11/2020 3:15 PM EST XR CHEST ONE VIEW STAT 09/11/2020 2:5 0 PM EST HEMOGRAM STAT 09/11/2020 2:45 PM EST DIFFERENTIAL, AUTOMATED STAT 09/11/2020 2:45 PM EST GOLD TUBE HOLD STAT 09/11/2020 2:45 PM EST BLUE TUBE HOLD STAT 09/11/2020 2:45 PM EST HC CBC,PLT & AUTO DIFF STAT 09/11/2020 2:45 PM EST HC TROPONIN T STAT 09/11/2020 2:45 PM EST HC LIPASE STAT 09/11/2020 2:45 PM EST HEPATIC FUNCTION PANEL STAT 09/11/2020 2:45 PM EST BASIC METABOLIC PANEL STAT 09/11/2020 2:45 PM EST EKG 12-LEAD STAT 09/11/2020 2:20 PM EST documented in this encounter Results * XR Abdomen Flat & Upright (09/11/2020 3:15 PM EST) Anatomical Region Laterality Modality Abdomen N/A Digital Radiogra phy Impressions 09/11/2020 3:26 PM EST 1. ??Nonobstructive bowel gas pattern. 2. ??Moderate colonic stool burden. I have personally reviewed the image(s) and the resident's interpretation and agree with the findings, Chuy Tobar MD at 09/11/2020 3:26 PM Thank you for letting us participate in the care of this patient. For questions regarding this report, please contact the number below. ? Electronically signed by: Chuy Tobar MD, [facility] ([phone]), at 09/11/2020 3:26 PM Narrative 09/11/2020 3:26 PM EST EXAMINATION: XR ABDOMEN FLAT AND UPRIGHT CLINICAL HISTORY: 59F bloating, constipation concern for obstruction TECHNIQUE: AP upright and supine views of the abdomen and pelvis COMPARISON: CT chest abdomen pelvis 06/12/2020 FINDINGS: No evidence of small or large bowel dilatation to suggest obstruction. No free intraperitoneal air or air-fluid levels on upright views. There is a moderate colonic stool burden. Air projects over the rectum. No large intra-abdominal mass effect or suspicious calcifications. The lung bases are clear. Procedure Note Chuy Tobar MD - 09/11/2020 EXAMINATION: XR ABDOMEN FLAT AND UPRIGHT CLINICAL HISTORY: 59F bloating, constipation concern for obstruction TECHNIQUE: AP upright and supine views of the abdomen and pelvis COMPARISON: CT chest abdomen pelvis 06/12/2020 FINDINGS: No evidence of small or large bowel dilatation to suggest obstruction. Nofree intraperitoneal air or air-fluid levels on upright views. There is a moderate colonic stool burden. Air projects over the rectum. No large intra-abdominal mass effect or suspicious calcifications. The lung bases are clear. IMPRESSION 1. Nonobstructive bowel gas pattern. 2. Moderate colonic stool burden. I have personally reviewed the image(s) and the resident's interpretationand agree with the findings, Chuy Tobar MD at 09/11/2020 3:26 PM Thank you for letting us participate in the care of this patient. Forquestions regarding this report, please contact the number below. Electronically signed by: Chuy Tobar MD, [facility]([phone]), at 09/11/2020 3:26 PM Hair Tanner MD IMG DX ORDERABLES * XR Chest One View (09/11/2020 2:50 PM EST) Anatomical Region Laterality Modality Chest N/A Digital Radiogra phy Impressions 09/11/2020 3:52 PM EST No acute cardiopulmonary pathology. I have personally reviewed the image(s) and the resident's interpretation and agree with the findings, Chantal Ley MD at 09/11/2020 3:52 PM Thank you for letting us participate in the care of this patient. For questions regarding this report, please contact the number below. ? Electronically signed by: Chantal Ley MD, [facility] ([phone]), at 09/11/2020 3:52 PM Narrative 09/11/2020 3:52 PM EST EXAMINATION: XR CHEST ONE VIEW CLINICAL HISTORY: chest pain TECHNIQUE: Single AP view of the chest COMPARISON: Chest radiograph 01/13/2020 FINDINGS: The lungs appear clear. No effusion or pneumothorax. Cardiomediastinal, bess, and central vascular structures are stable. Procedure Note Chantal Ley MD - 09/11/2020 EXAMINATION: XR CHEST ONE VIEW CLINICAL HISTORY: chest pain TECHNIQUE: Single AP view of the chest COMPARISON: Chest radiograph 01/13/2020 FINDINGS: The lungs appear clear. No effusion or pneumothorax. Cardiomediastinal, bess, and central vascular structures are stable. IMPRESSION No acute cardiopulmonary pathology. I have personally reviewed the image(s) and the resident's interpretationand agree with the findings, Chantal Ley MD at 09/11/2020 3:52 PM Thank you for letting us participate in the care of this patient. Forquestions regarding this report, please contact the number below. Electronically signed by: Chantal Ley MD, [facility]([phone]), at 09/11/2020 3:52 PM Hair Tanner MD IMG DX ORDERABLES * Gold Tube HOLD (09/11/2020 2:45 PM EST) [facility] Signature Gold Hold Sample in lab. [facility] Blood specimen (specimen) Venous Draw / Unknown 09/11/2020 2:45 PM EST 09/11/2020 2:55 PM EST Mal CARLIN CHEMISTRY ORDERABLES Performing Organization Address City/[facility] Co de Phone Number [facility] [place] [address] * Blue Tube HOLD (09/11/2020 2:45 PM EST) Pathologist [facility] Blue Hold Sample in lab. [facility] Blood specimen (specimen) Venous Draw / Unknown 09/11/2020 2:45 PM EST 09/11/2020 2:55 PM EST Mal CARLIN HEMATOLOGY ORDERABLE S Performing Organization Address [facility] Co de Phone Number [facility] [place] [address] * Differential, Automated (09/11/2020 2:45 PM EST) Pathologist [facility] Neutrophil % 58.6 % [facility] Neutrophil Absolute 4.51 1.70 - 6.10 x10(3)/[facility] Lymph % 31.7 % [facility] Lymphocytes Abs 2.4 0.9 - 3.2 x10(3)/[facility] LABORATORY Monocyte % 7.4 % [facility] Monocyte Abs 0.6 0.3 - 0.9 x10(3)/[facility]OR[facility]ORY Eos % 1.4 % [facility] Eosinophils Abs 0.1 0.0 - 0.4 x10(3)/[facility] Basophil % 0.6 % [facility] Baso Absolute 0.0 0.0 - 0.1 x10(3)/[facility] LABORATORY Immature Gran % 0.30 % [facility] Comment: Immature granulocytes(IG's)percentage and absolute count will include metamyelocytes, myelocytes, and promyelocytes. Blood smears from CBCs yielding IG's will be scanned manually for concordance. If this scan disagrees with the automated IG or if promyelocytes are noted, a manual differential will be performed. Immature Gran Absolute 0.02 0.00 - 0.04 x10(3)/mcL [facility] Blood specimen (specimen) 09/11/2020 2:45 PM EST 09/11/2020 2:54 PM EST Narrative Resulting Agency Comment Spec In Lab Mal CARLIN HEMATOLOGY ORDERABLE S [facility] [place] [address] * (ABNORMAL) Hemogram (09/11/2020 2:45 PM EST) White Blood Cell 7.7 4.0 - 9.5 x10(3)/[facility] LABORATORY Red Blood Cell 4.76 4.00 - 5.21 x10(6)/ L [facility] Hemoglobin 13.7 11.7 - 15.5 gm/dL [facility] Hematocrit 40.8 35.7 - 45.8 % [facility] Mean Cell Volume 85.7 82.6 - 94.4 fL [facility] Mean Cell Hemoglobin 28.8 27.1 - 32.0 pg [facility] Mean Cell Hemoglobin Concentration 33.6 31.7 - 35.0 gm/dL [facility] Platelet 371(H) 145 - 357 x10(3)/mc L [facility] RDW Standard Deviation 41.8 37.0 - 46.0 [facility]ORY RDW coefficient of variation 13.3 11.5 - 14.1 % [facility] Mean Platelet Volume 9.0 7.6 - 12.9 fL [facility] NRBC% auto 0.0 % [facility] NRBC Absolute 0.000 0.000 - 0.000 x10(3)/ L [facility] Blood specimen (specimen) 09/11/2020 2:45 PM EST 09/11/2020 2:54 PM EST Narrative Resulting Agency Comment Spec In Lab Mal CARLIN HEMATOLOGY ORDERABLE S Performing Organization Address City/[facility]/ZIP Co de Phone Number [facility] [place] [address] * Troponin (09/11/2020 2:45 PM EST) Troponin-T <0.01 0.00 - 0.00 ng/mL [facility] Comment: The 99th percentile for Troponin T is less than 0.01 ng/mL, any detectable cTnT concentration using this assay should be considered elevated. According to the third universal definition of myocardial infarction the following criteria with a clinical presentation consistent with acute myocardial ischemia meets the diagnosis for a myocardial infarction ([place]). Detection of a rise and/or fall of cTnT, with at least one value greater than the 99th percentile (> or = 0.01) and with at least one of the following ?? Symptoms of ischemia ?? New or presumed new significant DO-ygdohhn-F wave (ST-T) changes or new left bundle [...] hours later. If the clinical suspicion is high and previous samples have been negative an additional sample may be indicated. Reference: Third [place] Definition of Myocardial Infarction. Journal of the [employer] 2012;60:1581-98 Blood specimen (specimen) 09/11/2020 2:45 PM EST 09/11/2020 2:54 PM EST Narrative Resulting Agency Comment Spec In Lab Juanpablo Nelson MD CHEMISTRY ORDERABLES Performing Organization Address City/[facility]/ZIP Co de Phone Number [facility] [place] [address] * Lipase (09/11/2020 2:45 PM EST) Pathologist [facility] Lipase 38 0 - 60 unit/L [facility] Blood specimen (specimen) 09/11/2020 2:45 PM EST 09/11/2020 2:54 PM EST Narrative Resulting Agency Comment Spec In Lab Juanpablo Nelson MD CHEMISTRY ORDERABLES Performing Organization Address [facility] Phone Number [facility] [place] [address] * (ABNORMAL) Hepatic Function Panel (09/11/2020 2:45 PM EST) [facility] Protein, Total 7.5 6.1 - 8.0 gm/dL [facility] Albumin 4.6 3.2 - 5.2 gm/dL [facility] Aspartate Aminotransferase 20 0 - 30 unit/L [facility] Alanine Aminotransferase 22 0 - 30 unit/L [facility] Alkaline Phosphatase 115(H) 35 - 105 unit/L [facility] Bilirubin, Total 0.4 0.2 - 1.3 mg/dL [facility] Bilirubin, Direct 0.1 0.0 - 0.3 mg/dL [facility] Blood specimen (specimen) 09/11/2020 2:45 PM EST 09/11/2020 2:54 PM EST Narrative Resulting Agency Comment Spec In Lab Juanpablo Nelson MD CHEMISTRY ORDERABLES Performing Organization Address [facility] Co de Phone Number [facility] [place] [address] * Basic Metabolic Panel (non-fasting) (09/11/2020 2:45 PM EST) [facility] Glucose 89 65 - 199 mg/dL [facility] Comment:Diabetes: >=200 mg/d L plus symptoms Blood Urea Nitrogen 14 8 - 18 mg/dL [facility] Creatinine 0.88 0.70 - 1.20 mg/dL [facility] Sodium 141 135 - 145 mmol/L [facility] Potassium 4.3 3.5 - 5.0 mmol/L [facility] Comment: Please note: ??Patients with WBC >100,000 may have falsely elevated Potassium levels. ??For accurate Potassium quantification in these patients send serum separator tube (gold top) for subsequent determinations. ??Contact the Clinical Chemistry Laboratory if there are any questions. Chloride 103 98 - 107 mmol/L [facility] Carbon Dioxide 25 22 - 31 mmol/L [facility] Anion Gap 13 5 - 15 mmol/L [facility] Calcium 9.5 8.5 - 10.5 mg/dL [facility] Est Glomerular Filtration Rate 71 >=60 mL/min/1. 73 m?? [facility] Comment: This patient? s estimated [...] and symptoms in addition to eGFR. Blood specimen (specimen) 09/11/2020 2:45 PM EST 09/11/2020 2:54 PM EST Narrative Resulting Agency Comment Spec In Lab Juanpablo Nelson MD CHEMISTRY ORDERABLES [facility] [place] [address] * EKG 12 Lead (09/11/2020 2:20 PM EST) Ventricular rate 75 BPM MUSE SYSTEM Atrial Rate 75 BPM MUSE SYSTEM P-R Interval 170 ms MUSE SYSTEM QRS Duration 92 ms MUSE SYSTEM Q-T Interval 390 ms MUSE SYSTEM QTC Calculated (Bezet) 435 ms MUSE SYSTEM Calculated P Leisenring 53 degrees MUSE SYSTEM Calculated R Leisenring 3 degrees MUSE SYSTEM Calculated T Leisenring 54 degrees MUSE SYSTEM INTERPRETATION Normal sinus rhythm Normal ECG When compared with ECG of 14-FEB-2019 22:28, Aberrant conduction is no longer Present Confirmed by Radha Lawrence ([id number]) on 09/11/2020 7:23:38 PM MUSE SYSTEM 09/11/2020 2:20 PM EST 09/11/2020 7:23 PM EST Juanpablo Nelson MD ECG ORDERABLES MUSE SYSTEM documented in this encounter Visit Diagnoses Diagnosis Costochondritis Tietze's disease Constipation, unspecified constipation type documented in this encounter Administered Medications Inactive Administered Medications - up to 3 most recent administrations Medication Order MAR Action Action Date Dose Rate Site aspirin chewable tablet 243 mg 243 mg, Oral, ONCE, 1 dose, On Mon09/11/20 at 1407, STAT Given 09/11/2020 3:30 PM EST 243 mg documented in this encounter Active and Recently Administered Medications Times are shown in EST. Scheduled Medication Order 09/09/2020 09/10/2020 09/11/2020 aspirin chewable tablet 243 mg (COMPLETED) 243 mg, Oral, ONCE, 1 dose, On Mon09/11/20 at 1407, STAT 1530 (Given - Provid er: Elías Miranda NRP) documented in this encounter Care Teams Bread Icer Relationship Specialty Start Date End Date Luis E Narayan MD [facility] [address] [address] PCP - General Family Medicine 03/26/19 01/19/22 documented as of this encounter
--- OUTSIDE RECORDS SUMMARY | 2024-03-04 21:26 | XMS_ITS | Encounter Summary ---
Author Organization Formerly [facility], 1928–1983 Address [facility] [place] [address] Care Team Providers Care Bale Stacker Name Role Phone Luis E Narayan MD Primary Care Provider [phone] Encounter Details Date Type Department Care Team (Late st Contact Info) Description 06/18/2020 Orders Only Family Medicine at [facility] [address] [place] [phone] Luis E Narayan MD [facility] DR [address] AZEVEDO-[place] [address] Social History Tobacco Use Types Packs/Day Years [...] EDT TH Visit (TeleHealth) Sleep Center at [facility] [address] [place] [address] Denisse Hardwick, [facility] MAINTENANCE TECHNICIAN [facility] 03/20/2024 2:00 PM EDT Clinical Support Family Medicine [facility] [address] [place] [address] Julia Low, [facility] 05/01/2024 11:20 AM EDT Appointment Mammography/DXA at [address] Rodney Padilla MD [address] [place] [address] 05/01/2024 1:45 PM EDT Office Visit Ophthalmology at [place] [address] Juanpablo Hernandez MD [facility] [place] [address] 01/30/2025 1:30 PM EDT Appointment Hematology and Oncology at [place] [address] 01/30/2025 3:[address] Scan at [address] Arturo Cordero MD [facility] [address] [place] [address] 01/30/2025 4:15 PM EDT Office Visit Hematology and Oncology at [place] [address] Arturo Cordero MD [facility] [address] [place] [address] documented as of this encounter Visit Diagnoses Not on filedocumented in this encounter Care Teams Bale Stacker Relationship Specialty Start Date End Date Luis E Narayan MD [facility] [address] [place] [address] PCP - General Family Medicine 03/26/19 01/19/22 documented as of this encounter
--- OUTSIDE RECORDS SUMMARY | 2024-03-04 21:26 | XMS_ITS | Encounter Summary ---
Author Organization [facility] Address [facility] [place] [address] Care Team Providers Care Rotating Equipment Specialist Name Role Phone Luis E Narayan MD Primary Care Provider [phone] Reason for Visit * Reason Onset Date Comments Medication Refill 06/11/2020 Encounter Details Date Type Department Care Team (Late st Contact Info) Description 06/11/2020 Ref[place] [address] Juanpablo Hernandez MD [facility] [place] [address] Conjunctival tumor Social History Tobacco Use Types Packs/Day Years Used Date Smoking Tobacco: Every Day Cigarettes 1 40 Smokeless Tobacco: Never Alcohol Use Standard Drinks/Week Comments No 0 [...] [facility] [address] [place] [address] Denisse Hardwick, [facility]T[employer] 03/20/2024 2:00 PM EDT Clinical Support Family Medicine at [facility] [address] [place] [address] Julia Low, [facility] 05/01/2024 11:20 AM EDT Appointment Mammography/DXA at [address] Rodney Padilla MD [address] [place] [address] 05/01/2024 1:45 PM EDT Office Visit Ophthalmology at [place] [address] Juanpablo Hernandez MD [facility] [place] [address] 01/30/2025 1:30 PM EDT Appointment Hematology and Oncology at [place] [address] 01/30/2025 3:[address] Scan at [place] [address] Arutro Cordero MD [facility] [address] [place] [address] 01/30/2025 4:15 PM EDT Office Visit Hematology and Oncology at [place] [address] Arturo Cordero MD [facility] [address] [place] [address] documented as of this encounter 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
--- OUTSIDE RECORDS SUMMARY | 2024-03-04 21:26 | XMS_ITS | Encounter Summary ---
Author Organization [facility] [place] [address] Care Team Providers Care Grocery Store Bagger Name Role Phone Luis E Narayan MD Primary Care Provider [phone] Reason for Visit * Reason Onset Date Comments Medication Refill 06/22/2020 Encounter Details Date Type Department Care Team (Late st Contact Info) Description 06/22/2020 Refill Family Medicine at [facility] [address] [place] [address] Bonny Emanuel MD [address] [place] [address] Mixed hyperlipidemia Social History Tobacco Use Types [...] [facility] [address] [place] [address] Denisse Hardwick, JUNIOR WEB DEVELOPER [facility] 03/20/2024 2:00 PM EDT Clinical Support Family Medicine at [facility] [address] [place] [address] Julia Low, [facility] 05/01/2024 11:20 AM EDT Appointment Mammography/DXA at [place] [phone] Rodney Padilla MD [address] [place] [address] 05/01/2024 1:45 PM EDT Office Visit Ophthalmology at [place] [phone] Juanpablo Hernandez MD [facility] [place] [address] 01/30/2025 1:30 PM EDT Appointment Hematology and Oncology at [place] [address] 01/30/2025 3:[address] Scan at [place] [phone] Arturo Cordero MD [facility] DR HEMATOLOGY [place] [address] 01/30/2025 4:15 PM EDT Office Visit Hematology [place] [address] Arturo Cordero MD [facility] DR HEMATOLOGY [place] [address] documented as of this encounter Visit Diagnoses Diagnosis Mixed hyperlipidemia documented in this encounter Care Teams Grocery Store Bagger Relationship Specialty Start Date End Date Luis E Narayan MD [facility] DR LIL[address] WALKER[place] [address] PCP - General Family Medicine 03/26/19 01/19/22 documented as of this encounter
--- OUTSIDE RECORDS SUMMARY | 2024-03-04 21:26 | XMS_ITS | Encounter Summary ---
[place] [address] Care Team Providers Care Portfolio Architect Name Role Phone Luis E Narayan MD Primary Care Provider Encounter Details Date Type Department Care Team (Latest Contact Info) Description 06/08/2020 1:27 PM EST - 06/08/2020 11:59 PM EST Hospital [place] [address] Discharge Disposition: Home Social History Tobacco Use [...] Sig Dispensed Refills Start Date End Date aspirin EC 81 mg Tablet, Delayed Release (E.C.) Take 81 mg by mouth daily. prednisoLONE acetate (Pred Forte) 1 % Drops, SuspensionIndications: Conjunctival tumor Place 1 drop into the left eye 4 times daily. 5 mL 06/02/2020 09/30/2020 amLODIPine (Norvasc) 5 mg TabletIndications:Esse ntial hypertension Take 1 tablet by mouth daily. 90 tablet 3 05/26/2020 05/05/2021 omeprazole 20 mg Tablet, Delayed Release (E.C.) Take 1 tablet by mouth daily. 90 tablet 3 05/26/2020 03/31/2021 moxifloxacin (VIGAMOX) 0.5 % Drops Place 1 drop into the left eye 3 times daily. 3 mL 05/26/2020 06/11/2020 LORazepam (Ativan) 1 mg Tablet Take 1 [...] times daily. 1 Inhaler 11 04/20/2020 05/26/2021 metFORMIN (GLUCOPHAGE) 1,000 mg TabletIndications:Type 2 diabetes mellitus with hyperglycemia, without long-term current use of insulin Take 1 tablet by mouth 2 times daily (with meals). 180 tablet 1 01/27/2020 07/26/2020 loratadine (Claritin) 10 mg Tablet Take 1 tablet by mouth daily. 90 tablet 3 09/05/2019 09/14/2020 metoprolol succinate XL (Toprol XL) 25 mg Tablet Sustained Release 24 hr Take 1 tablet by mouth daily. 90 tablet 3 09/05/2019 09/14/2020 lamoTRIgine (LaMICtal) 100 mg TabletIndications:Bipo lar affective disorder in remission Take 1 tablet by mouth daily. 90 tablet 3 08/05/2019 06/20/2023 lancets Misc Use for twice daily testing 100 each 11 08/05/2019 06/14/2021 blood sugar diagnostic strips Strip Use as instructed 100 each 12 08/05/2019 06/14/2021 Blood-Glucose Meter Misc Use twice daily 1 each 08/05/2019 06/14/2021 fluticasone propionate (FLONASE) 50 mcg/actuation [place], Suspension 1 spray by Each Nare route 2 times daily. 16 g 11 08/01/2019 08/03/2020 clopidogrel (PLAVIX) 75 mg Tablet Take 1 tablet by mouth daily. Restart post-operatively on 07/05 90 tablet 3 07/05/2019 09/14/2020 nicotine (NICODERM CQ) 21 mg/[address] 1 patch onto the skin daily as needed. 30 patch 11 06/13/2019 06/14/2021 nitroGLYcerin (NITROSTAT) 0.4 mg Tablet, Sublingual Place 1 tablet under the tongue See Admin Instructions. 30 tablet 04/09/2019 07/05/2021 simvastatin (ZOCOR) 10 mg Tablet Take 1 tablet by mouth daily. 90 tablet 4 04/09/2019 06/22/2020 traZODone (DESYREL) 100 mg Tablet Take 1 tablet by mouth nightly. 90 tablet 3 04/09/2019 06/25/2020 ALBUTEROL SULFATE (PROVENTIL HFA INHL) 07/14/2010 021 documented as of this encounter Plan of Treatment Upcoming Encounters Date Type Department Care Team (Late st Contact Info) Description 03/20/2024 9:00 AM EDT TH Visit (TeleHealth) Sleep Center at [facility] [address] [place] [address] Denisse Hardwick, RETAIL SUPPORT ASSOCIATE [facility] 03/20/2024 2:00 PM EDT Clinical Support Family Medicine at [facility] [address] [place] [phone] Julia Low, [facility] 05/01/2024 11:20 AM EDT Appointment Mammography/[place] [phone] Rodney Padilla MD [address] [facility] [place] [address] 05/01/2024 1:45 PM EDT Office [place] [phone] Juanpablo Hernandez MD [facility] [place] [place] [address] 01/30/2025 1:30 PM EDT Appointment Hematology [place] [phone] 01/30/2025 3:[address] [place] [address] Arturo Cordero MD [facility] [place] [address] 01/30/2025 4:15 PM EDT Office Visit Hematology [place] [address] Arturo Cordero MD [facility] [place] [address] documented as of this encounter Visit Diagnoses Not on filedocumented in this encounter Care Teams Portfolio Architect Relationship Specialty Start Date End Date Luis E Narayan MD [facility] [address] [place] [address] PCP - General Family Medicine 03/26/19 01/19/22 documented as of this encounter
--- OUTSIDE RECORDS SUMMARY | 2024-03-04 21:26 | XMS_ITS | Encounter Summary ---
Author Organization [facility] [place] [address] Care Team Providers Care Reservation Manager Name Role Phone Luis E Narayan MD Primary Care Provider Reason for Referral * Diagnostic Test (Routine) - Closed Specialty Diagnoses / Procedures Referred By Contac t Referred To Contact Radiology Diagnoses Ocular melanoma, left Malignant melanoma, unspecified site Procedures CT Neck Soft Tissue w Contrast (Generic) Arturo Cordero MD [facility] [address] [place] [address] [facility] [place] [address] Referral ID Status Reason Start Date Expiration Date V isits Requested Visits Authorized [id number] Closed Specialty Service Requested 06/08/2020 12/06/2021 1 1 * Diagnostic Test (Routine) - Closed Specialty Diagnoses / Procedures Referred By Contac t Referred To Contact Radiology Diagnoses Ocular melanoma, left Renal cell cancer, left Procedures CT Chest Abdomen Pelvis w Contrast (Generic) Sri Frederick MD [facility] [address] HEMATOLOGY/[place] [address] [facility] [place] [address] Referral ID Status Reason Start Date Expiration Date V isits Requested Visits Authorized [id number] Closed Specialty Service Requested 05/26/2020 11/23/2021 1 1 Reason for Visit * Diagnostic Test (Routine) - Closed Specialty Diagnoses / Procedures Referred By Contac t Referred To Contact Radiology Diagnoses Ocular melanoma, left Renal cell cancer, left Procedures CT Chest Abdomen Pelvis w Contrast (Generic) Sri Frederick MD [facility] [address] HEMATOLOGY/[place] [address] [facility] [place] [address] Referral ID Status Reason Start Date Expiration Date V isits Requested Visits Authorized [id number] Closed Specialty Service Requested 05/26/2020 11/23/2021 1 1 Encounter Details Date Type Department Care Team (Latest Contact Info) Description 06/12/2020 3:32 PM EST - 06/12/2020 11:59 PM EST Hospital [place] [phone] Arturo Cordero MD [facility] [address] [place] [address] Ocular melanoma, left; Renal cell cancer, left; Malignant melanoma, unspecified site Discharge Disposition: [...] (E.C.) Take 81 mg by mouth daily. moxifloxacin (VIGAMOX) 0.5 % DropsIndications:Conju nctival tumor Place 1 drop into the left [...] Use for twice daily testing 100 each 08/05/2019 06/14/2021 blood sugar diagnostic strips Strip Use as instructed 100 each 08/05/2019 06/14/2021 Blood-Glucose Meter Misc Use twice daily 1 each 08/05/2019 06/14/2021 fluticasone propionate (FLONASE) 50 mcg/actuation [place], Suspension 1 spray by Each Nare route [...] at [facility] [address] [place] [address] Denisse Hardwick, [facility] 03/20/2024 2:00 PM EDT Clinical Support Family Medicine at [facility] [address] [place] [phone] Julia Low, [facility] 05/01/2024 11:20 AM EDT Appointment Mammography/[place] [address] Rodney Padilla MD [address] [facility] [place], [place] [id number] 05/01/2024 1:45 PM EDT Office [place] [address] Juanpablo Hernandez MD [facility] [place] [address] 01/30/2025 1:30 PM EDT Appointment Hematology [place] [address] 01/30/2025 3:[address] [place] [phone] Arturo Cordero MD [facility] [address] [place] [address] 01/30/2025 4:15 PM EDT Office Visit Hematology [place] [phone] Arturo Cordero MD [facility] [address] [place] [address] documented as of this encounter Procedures Procedure Name Priority Date/Time Associated Diagnosis Comments CT CHEST ABDOMEN PELVIS W CONTRAST (GENERIC) Routine 06/12/2020 6:32 PM EST Ocular melanoma, left Renal cell cancer, left CT NECK SOFT TISSUE W CONTRAST Routine 06/12/2020 6:32 PM EST Ocular melanoma, left Malignant melanoma, unspecified site documented in this encounter Results * CT Neck Soft Tissue w Contrast (Generic) (06/12/2020 6:32 PM EST) Anatomical Region Laterality Modality Neck, Head Computed Tomogra phy Impressions 06/13/2020 8:54 AM EST No evidence for cervical metastatic disease. Advanced dental disease, especially affecting the right lower molar teeth. Thank you for letting us participate in the care of this patient. For questions regarding this report, please contact the number below. ? 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 . 170 cc of Omnipaque 350 administered. COMPARISON: None FINDINGS: Lung apices are clear. Parotid and submandibular glands as well as the thyroid gland are unremarkable. Visualized paranasal sinuses are clear. Mild cervical degenerative change. No aggressive osseous lesions. No cervical lymphadenopathy. No masses along the visualized upper aerodigestive tract. The orbits are not visualized on this study. The patient has poor dentition with numerous missing teeth and dental caries most severely affecting the right lower molar teeth with periapical lucencies reflecting endodontal disease. 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 . 170cc of Omnipaque 350 administered. COMPARISON: None FINDINGS: Lung apices are clear. Parotid and submandibular glands as well as thethyroid gland are unremarkable. Visualized paranasal sinuses are clear. Mildcervical degenerative change. No aggressive osseous lesions. No cervicallymphadenopathy. No masses along the visualized upper aerodigestive tract. The orbits arenot visualized on this study. The patient has poor dentition with numerousmissing teeth and dental caries most severely affecting the right lower molarteeth with periapical lucencies reflecting endodontal disease. The medullary cavityof the right hemimandible is sclerotic reflecting osteitis condensans in thesetting of chronic dental infection/inflammation. IMPRESSION No evidence for cervical metastatic disease. Advanced dental disease, especially affecting the right lower molarteeth. Thank you for letting us participate in the care of this patient. Forquestions regarding this report, please contact the number below. Arturo Cordero MD [facility] [place] * CT Chest Abdomen Pelvis w Contrast (Generic) (06/12/2020 6:32 PM EST) Anatomical Region Laterality Modality Abdomen, Pelvis Computed Tomogra phy Impressions 06/14/2020 8:22 AM EST Single 10 mm short axis left paratracheal lymph node. No other pathologically enlarged lymph nodes in the chest, abdomen or pelvis. No pulmonary nodules. Mild diffuse fatty infiltration liver without focal lesion. Stable left lipid rich adrenal adenoma. No recurrence status post partial left nephrectomy. Thank you for letting us participate in the care of this patient. For questions regarding this report, please contact the number below. ? Narrative 06/14/2020 8:22 AM EST EXAMINATION: CT CHEST ABDOMEN PELVIS W CONTRAST (GENERIC) CLINICAL HISTORY: Metastatic disease evaluation - Include more detail below Patient with h/o L renal cancer s/p resection and new diagnosis of L conjunctival melanoma TECHNIQUE: Noncontrast CT scan of the abdomen performed followed by Helical CT of the chest, abdomen, and pelvis was performed following the intravenous administration of contrast. Delayed phase imaging for renal mass protocol performed. 170 cc Omnipaque 350 intravenous contrast. Oral contrast was administered. COMPARISON: Multiphase CT of the abdomen January 13, 2020, MR abdomen May 02, [address] abdomen March 19, 2019. FINDINGS: Chest: Lungs and large airways: No nodules. No masses. Pleura: No effusion. Heart/vasculature: Normal size heart without pericardial effusion. No central pulmonary emboli. Lymph nodes: No pathologically enlarged axillary, mediastinal nor hilar lymph nodes. Small paratracheal lymph nodes, largest borderline 10 mm short axis interposed between the trachea and aortic arch. Mediastinum and bess: No masses. Symmetric thyroid lobes. Abdomen/pelvis: Liver: Mild diffuse fatty infiltration without focal lesion Bile ducts: Nondilated. Gallbladder: No calcified gallstones. Normal caliber wall. Pancreas: Normal attenuation without ductal dilatation. Spleen: Normal. Adrenals: Stable lipid rich left adrenal adenoma. Normal right adrenal gland. Kidneys: Interval organization and maturation of scarring and postsurgical changes at the posterior left lower kidney pole status post partial nephrectomy without recurrent enhancing soft tissue. No urinary contrast extravasation. Suspect adhesion to the left psoas muscle as this has healed. Normal right kidney Urinary Bladder: Normal. Vasculature: Nonaneurysmal abdominal aorta. Patent renal veins and renal arteries. Patent portal and hepatic veins. Lymph Nodes: ??No pathologically enlarged retroperitoneal, mesenteric, gastrohepatic nor deep pelvic lymph nodes Bowel: Normal caliber loops of small and large bowel. No mural thickening. Diverticulosis without acuity. Peritoneum and mesentery: No ascites, free air, or loculated fluid collection. No mesenteric inflammation. Abdominal wall: Small fat filled right inguinal region hernia Reproductive organs: Normal contours Osseous structures: No expansile lytic nor sclerotic osseous lesion. Procedure Note Paulina Saldivar MD - 06/14/2020 EXAMINATION: CT CHEST ABDOMEN PELVIS W CONTRAST (GENERIC) CLINICAL HISTORY: Metastatic disease evaluation - Include more detailbelow Patient with h/o L renal cancer s/p resection and new diagnosis of L conjunctival melanoma TECHNIQUE: Noncontrast CT scan of the abdomen performed followed byHelical CT of the chest, abdomen, and pelvis was performed following theintravenous administration of contrast. Delayed phase imaging for renal massprotocol performed. 170 cc Omnipaque 350 intravenous contrast. Oral contrast was administered. COMPARISON: Multiphase CT of the abdomen January 13, 2020, MR abdomen [address] abdomen March 19, 2019. FINDINGS: Chest: Lungs and large airways: No nodules. No masses. Pleura: No effusion. Heart/vasculature: Normal size heart without pericardial effusion. Nocentral pulmonary emboli. Lymph nodes: No pathologically enlarged axillary, mediastinal nor hilarlymph nodes. Small paratracheal lymph nodes, largest borderline 10 mm shortaxis interposed between the trachea and aortic arch. Mediastinum and bess: No masses. Symmetric thyroid lobes. Abdomen/pelvis: Liver: Mild diffuse fatty infiltration without focal lesion Bile ducts: Nondilated. Gallbladder: No calcified gallstones. Normal caliber wall. Pancreas: Normal attenuation without ductal dilatation. Spleen: Normal. Adrenals: Stable lipid rich left adrenal adenoma. Normal right adrenalgland. Kidneys: Interval organization and maturation of scarring andpostsurgical changes at the posterior left lower kidney pole status post partialnephrectomy without recurrent enhancing soft tissue. No urinary contrastextravasation. Suspect adhesion to the left psoas muscle as this has healed. Normalright kidney Urinary Bladder: Normal. Vasculature: Nonaneurysmal abdominal aorta. Patent renal veins and renal arteries. Patent portal and hepatic veins. Lymph Nodes: No pathologically enlarged retroperitoneal, mesenteric, gastrohepatic nor deep pelvic lymph nodes Bowel: Normal caliber loops of small and large bowel. No muralthickening. Diverticulosis without acuity. Peritoneum and mesentery: No ascites, free air, or loculated fluidcollection. No mesenteric inflammation. Abdominal wall: Small fat filled right inguinal region hernia Reproductive organs: Normal contours Osseous structures: No expansile lytic nor sclerotic osseous lesion. IMPRESSION Single 10 mm short axis left paratracheal lymph node. No otherpathologically enlarged lymph nodes in the chest, abdomen or pelvis. No pulmonary nodules. Mild diffuse fatty infiltration liver without focal lesion. Stable left lipid rich adrenal adenoma. No recurrence status post partial left nephrectomy. Thank you for letting us participate in the care of this patient. Forquestions regarding this report, please contact the number below. Arturo Cordero MD [facility] CT ORDERABLES documented in this encounter Visit Diagnoses Diagnosis Ocular melanoma, left Renal cell cancer, left Malignant melanoma, unspecified site documented in this encounter Administered Medications Inactive Administered Medications - up to 3 most recent administrations Medication Order MAR Action Action Date Dose Rate Site iohexoL (Omnipaque) (350 mg/mL) injection solution 0-200 mL 0-200 mL, Intravenous, ONCE PRN, 1 dose, Starting on Mon06/12/20 at 1830, Until Mon06/12/20 at 1830, Per Protocol, Warning Vesicant/Irritant Medication , Radiology Contrast, Routine Given 06/12/2020 6:30 PM EST 170 mLs iohexoL (Omnipaque) (350 mg/mL) injection solution 50 mL 50 mL, Oral, ONCE PRN, 1 dose, Starting on Mon06/12/20 at 1831, Until Mon06/12/20 at 1832, Per Protocol, Warning Vesicant/Irritant Medication , Routine Given 06/12/2020 6:32 PM EST 50 mLs documented in this encounter Care Teams Reservation Manager Relationship Specialty Start Date End Date Luis E Narayan MD [facility] [address] PCP - General Family Medicine 03/26/19 01/19/22 documented as of this encounter
--- OUTSIDE RECORDS SUMMARY | 2024-03-04 21:26 | XMS_ITS | Encounter Summary ---
Author Organization Formerly [facility], [facility] [place] [address] Care Team Providers Care Lime Kiln Tender Name Role Phone Luis E Narayan MD Primary Care Provider Reason for Referral * Diagnostic Test (Routine) - Closed Specialty Diagnoses / Procedures Referred By Contac t Referred To Contact Radiology Diagnoses Ocular melanoma, left Procedures MRI Brain wwo Contrast (Generic) Sri Frederick MD [facility] DR HEMATOLOGY/[place] [address] [facility] [place] [address] Referral ID Status Reason Start Date Expiration Date V isits Requested Visits Authorized [id number] Closed Specialty Service Requested 05/26/2020 11/23/2021 1 1 * Diagnostic Test (Routine) - Closed Specialty Diagnoses / Procedures Referred By Contchrissy t Referred To Contact Radiology Diagnoses Ocular melanoma, left Renal cell cancer, left Procedures CT Chest Abdomen Pelvis w Contrast (Generic) Sri Frederick MD [facility] HEMATOLOGY/[place] [address] [facility] [place] [address] Referral ID Status Reason Start Date Expiration Date V isits Requested Visits Authorized [id number] Closed Specialty Service Requested 05/26/2020 11/23/2021 1 1 Reason for Visit * Reason Comments Follow-up * Consultation (Urgent) - Closed Specialty Diagnoses / Procedures Referred By Gonzalez kumari Referred To Contact Hematology and Oncology Diagnoses Conjunctival tumor Juanpablo Hernandez MD [facility] [place] [address] [facility] Hem [address]c [address] [place] [address] Referral ID Status Reason Start Date Expiration Date V isits Requested Visits Authorized [id number] Closed Consult, Test & Treat 05/19/2020 05/19/2021 1 1 Encounter Details Date Type Department Care Team (Late st Contact Info) Description 05/26/2020 2:00 PM EST Office Visit [place] [address] Arturo Cordero MD [facility] [place] [address] Leadnra Lopes APRN [facility] [place] [address] Sri Frederick MD [facility] [place]EMATOLOGY/[place] [address] Ocular melanoma, left (Primary Dx); Renal cell cancer, left [...] Sign Reading Time Taken Comments Blood Pressure 154/81 05/26/2020 2:08 PM EST Pulse 66 05/26/2020 2:08 PM EST Temperature 36.1 ??C (97 ??F) 05/26/2020 2:08 PM EST Respiratory Rate 18 05/26/2020 2:08 PM EST Oxygen Saturation 100% 05/26/2020 2:08 PM EST Inhaled Oxygen Concentration - - Weight 108 kg (238 lb) 05/26/2020 2:08 PM EST Height 159.8 cm (5' 2.91) 05/26/2020 2:08 PM ES T Body Mass Index 42.28 05/26/2020 2:08 PM EST documented in this encounter Progress Notes * Sri Frederick MD - 05/26/2020 2:00 PM EST INITIAL VISIT [facility] NOTE REFERING PHYSICIAN: Dr. Juanpablo Hernandez DIAGNOSIS: Left eye conjunctival melanoma PATH: L eye conjunctival melanoma, depth 0.6mm, mitosis 1/mm2, No PNI or LVI, does not meet criteria for ulceration. Positive for PRAME immunostain. CURRENT TX: Status post biopsy on 05/14/2020 Left partial nephrectomy on 06/28/[address] Medina ONCOLOGIC HX: - years ago: was told that she had pterygium in her L eye and did not need any management - fall 2018: saw a new land checker and was referred to Dr. 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 Medina - 03/31/2020: saw her land checker Dr. 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 - 05/14/2020: Underwent excision of the limbal lesion which was positive for melanoma Referred to melanoma clinic on 05/26/2020 to discuss treatment/follow-up options HPI: Alize Gramajo is a 59 y.o. female with past medical history of left-sided renal cell carcinoma s/ppartial nephrectomy, type II diabetes, coronary artery disease, hyperlipidemia, hypertension, depression/anxiety, and TITO, who is presenting to the oncology clinic on 05/26/2020 to discuss evaluation/management for her conjunctival melanoma. Patient is presenting to the clinic accompanied by her daughter Gia. She noted that she is doing well, though very anxious about her diagnosis. Her left eye has been red and itchy, and she has been using 2 different eyedrops [Pred forte and moxifloxacin] daily. She noted that the vision in hereye is good. She reports having peripheral neuropathy with balance issues, memory issues and speech issues, especially when she is fatigued. These started after she received prednisone and some type of fluoroquinolone antibiotics for an infection. She has been extensively evaluated by neurology, and has not been found to have any organic pathology explaining her symptoms. She also has severe anxiety and depression. She recently started seeing a new psychiatrist and was started on buspirone. She noted that she is feeling a little bit better with the buspirone. She continues to smoke 1 pack of cigarettes per day. She has been smoking for the past 45 years, she tried to quit a few years ago. Unfortunately, started smoking again because of her anxiety. Denies any fevers, chills, night chest pain, SOB, headaches, dizziness, abd pain, nausea/vomiting. She noted that she has alternating constipation and diarrhea, possibly has IBS. REVIEW OF SYSTEMS: Constitutional: No fever, no fatigue, No dizziness. No headache. Eyes: No visual change, though reports having irritation in her left eye [from the recent biopsy/surgery]. ENT: No hearing change Cardiovascular: Negative Respiratory: [...] uses inhalerswith good effect ??? Atherosclerosis of [place] coronary artery of [place] heart with angina pectoris 10/09/2007 History of [...] ANGIOPLASTY WITH STENT PLACEMENT Placed at ??? [facility] ??? PRO DESTR CORNEAL LESN,CRYO,PHOTO,THERM Left 05/14/2020 DESTRUCTION OF LESION OF CORNEA BY CRYOTHERAPHY (WRVU 3.47) performed by Juanpablo Hernandez MD at [facility] OSC ??? PRO EXCIS CORNEA LESN Left 05/14/2020 EXCISION OF LESION, CORNEA, EXCEPT PTERYGIUM (WRVU 7.5) performed by Juanpablo Hernandez MD at [facility] ??? PRO LAP, PARTIAL NEPHRECTOMY Left 06/28/2019 LAPAROSCOPY, PARTIAL NEPHRECTOMY, ROBOTIC ASSIST (WRVU 27.41) performed by Avila Medina MD at [facility] MAIN OR ??? PRO PLACE AMNIOTIC MEMBRANE OCULAR SURFACE;SINGLE LAYER SUTURED Left 05/14/2020 PLACEMENT OF AMNIOTIC MEMBRANE ON THE OCULAR SURFACE,SINGLE LAYER,SUTURED (WRVU 2.5) performed by Juanpablo Hernandez MD at [facility] MEDS: Blood-Glucose Meter, LORazepam, albuterol sulfate, [...] file Occupational History ??? Not on file Social Needs ??? Financial resource strain: Not on file ??? Food insecurity Worry: Not on file Inability: Not on file ??? Transportation needs Medical: Not on file Non-medical: Not on file Tobacco Use ??? Smoking status: Current Every Day Smoker Packs/day: 1.00 Years: 40.00 Pack years: 40.00 Types: Cigarettes ??? Smokeless tobacco: Never Used Substance and Sexual Activity ??? Alcohol use: No ??? Drug use: No ??? Sexual activity: Not on file Lifestyle ??? Physical activity Days per week: Not on file Minutes per session: Not on file ??? Stress: Not on file Relationships ??? Social connections Talks on phone: Not on file Gets together: Not on file Attends bahai service: Not on file Active member of club or organization: Not on file Attends meetings of clubs or organizations: Not on file Relationship status: Not on file ??? Intimate partner violence Fear of current or ex partner: Not on file Emotionally abused: Not on file Physically abused: Not on file Forced sexual activity: Not on file Other Topics Concern ??? Not on file Social History Narrative legally from spouse 2012. 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 50+ pack/ yr hx No alcohol One daughter who is a positive support Family history: - 2 brother - renal cell carcinoma - brother- pancreatic cancer - mother - uterine cancer in her 70s - maternal aunt - breast cancer - maternal aunt - renal cancer PHYSICAL EXAM: PS=1 close to 0 General: not in acute distress. in good mood and spirits BP 154/81 (Patient Position: Sitting) Pulse 66 Temp 36.1 ??C (97 ??F) (Temporal) Resp 18 Ht159.8 cm (5' 2.91) Wt 108 kg (238 lb) SpO2 100% BMI 42.28 kg/m?? Eyes: Not icteric, left eye is erythematous and appears to be irritated. Right eye is normal in appearance. Oral: clear. No mucosal abnormalities. Neck: Supple. No lymphadenopathy. Lungs: Bilaterally clear to auscultation, No wheezing, No crackles Heart: Regular rate and rhythm. Abdomen: Soft, no tenderness, no mass, normal active bowel sounds. Extremities: No edema. Skin: No rash Neuro: No focal weakness LABS: None IMAGING STUDIES: None ASSESSMENT AND PLAN: Left eye conjunctival melanoma, biopsy-proven on 05/14/2020 mutation pending Alize Gramajo is a 59 y.o. female with past medical history of left-sided renal cell carcinoma s/ppartial nephrectomy, type II diabetes, coronary artery disease, hyperlipidemia, hypertension, depression/anxiety, and TITO, who is presenting to the oncology clinic to discuss evaluation/management for her conjunctival melanoma. We reviewed that conjunctival malignant melanoma are very rare and accounted for about 5% of all ocular melanomas. They had a high tendency to spread lymphomatously and hematogenously, the common sites of metastasis include lung, liver, brain. We would recommend getting a staging CT chest/abdomen/pelvis to evaluate if the cancer has spread to lymph nodes or distant organs. In addition, given her neurological symptoms, we would also recommend getting a brain MRI. We reviewed that if the cancer is limited to the conjunctiva, the recommended treatment is topical chemotherapy with mitomycin-C or possibly brachytherapy. However, if the cancer has spread to her lymph nodes or distant organs, then she would require systemic treatment with immunotherapy. We would send the pathology slides from her recent conjunctival biopsy for molecular testing with NGS. In addition, given her extensive family history of cancers and personal history of renal cell carcinoma and ocular melanoma, we would send her renal cell carcinoma biopsy specimen for NGS including analysis for BAP 1 (BAP1 has been implicated in familial predisposition syndromes with renal cell carcinoma and uveal melanoma). If the testing shows that she has genetic predisposition, we would referher to a genetic counselor. We will plan to bring the patient back in 1 to 2 weeks with labs, staging CT scan and MRI brain. Pt was instructed to call our clinic with any new symptom or any questions. Thank you very much for referring this nice patient to our medical oncology clinic. Please find my recommendation in above note. Patient's case was discussed with my attending Dr. Cordero. Sri Murillo MD Hematology/Oncology fellow ATTENDING NOTE: The significance and the natural course of ocular melanoma was discussed with the patient. Given her history of renal cell cancer and strong family history, we will obtain NGS panel including BAP1 mutation. Depends on NGS panel, we might refer her to genetic counseling given strong family history. We also obtain baseline CT scan to rule out distant metastasis including liver. Given uncertain margin status especially corneal margin, Dr. Hernandez plans to start topical mitomycin-C treatment if no distant met is observed. I have seen and examined the patient by myself with Dr. Murillo and agree with the above plans described. Arturo Cordero MD documented in this encounter Plan of Treatment Upcoming Encounters Date Type Department Care Team (Late st Contact Info) Description 03/20/2024 9:00 AM EDT TH Visit (TeleHealth) Sleep Center at [facility] [address] [place] [phone] Denisse Hardwick, [facility] 03/20/2024 2:00 PM EDT Clinical Support Family Medicine [facility] [address] [place] [address] Julia Low, [facility] 05/01/2024 11:20 AM EDT Appointment Mammography/[place] [phone] Rodney Padilla MD [address] [place] [address] 05/01/2024 1:45 PM EDT Office [place] [address] Juanpablo Hernandez MD [facility] [address] 01/30/2025 1:30 PM EDT Appointment Hematology [place] [address] 01/30/2025 3:[address] [place] [phone] Arturo Cordero MD [facility] DR [place] [address] 01/30/2025 4:15 PM EDT Office Visit [place]ematology [place] [address] Arturo Cordero MD [facility] DR [place] [address] Scheduled Orders Name Type Priority Associated Diagnoses Orde r Schedule Specimen to Pathology Additional Testing Pathology/Cytol ogy STAT Ocular melanoma, left Renal cell cancer, left Ordered: 05/26/2020 documented as of this encounter Results * [...] the number below. ? Electronically signed by: Paulina Saldivar MD, [facility] ([phone]), at 06/14/2020 8:22 AM Narrative 06/14/2020 8:22 AM EST EXAMINATION: CT [...] contact the number below. Electronically signed by: Paulina Saldivar MD, [facility]([phone]), at 06/14/2020 8:22 AM Arturo Cordero MD IMG CT ORDERABLES * MRI Brain wwo Contrast (Generic) (06/12/2020 3:20 PM EST) Anatomical Region Laterality Modality Head Magnetic Resonan ce Impressions 06/12/2020 4:58 PM EST No evidence of intracranial metastasis. I have personally reviewed the image(s) and the resident's interpretation and agree with the findings, Abhay Long MD at 06/12/2020 4:58 PM Thank you for letting us participate in the care of this patient. For questions regarding this report, please contact the number below. ? Electronically signed by: Abhay Long MD, [facility] ([phone]), at 06/12/2020 4:58 PM Narrative 06/12/2020 4:58 PM EST EXAMINATION: MRI BRAIN WWO CONTRAST (GENERIC) CLINICAL HISTORY: Metastatic disease evaluation - Include more detail below Patient L eye conjunctival melanoma, assess for metastasis TECHNIQUE: MRI of the brain was performed before and after the intravenous administration of 21cc Dotarem. COMPARISON: MRI brain 03/26/2019. FINDINGS: No acute infarction, mass, or mass effect. Scattered T2 hyperintense foci in the periventricular white matter are nonenhancing and consistent with chronic microangiopathy. No intracranial hemorrhage or susceptibility related signal dropout. Two tiny T1 hyperintense foci along the anterior falciform present on the prior study are likely to represent focal fat. Grossly normal appearance of the optic nerves. No abnormal signal in the paranasal sinuses, mastoid air cells, or bone marrow. Procedure Note Abhay Long MD - 06/12/2020 EXAMINATION: MRI BRAIN WWO CONTRAST (GENERIC) CLINICAL HISTORY: Metastatic disease evaluation - Include more detailbelow Patient L eye conjunctival melanoma, assess for metastasis TECHNIQUE: MRI of the brain was performed before and after the intravenousadministration of 21cc Dotarem. COMPARISON: MRI brain 03/26/2019. FINDINGS: No acute infarction, mass, or mass effect. Scattered T2 hyperintense fociin the periventricular white matter are nonenhancing and consistent withchronic microangiopathy. No intracranial hemorrhage or susceptibility relatedsignal dropout. Two tiny T1 hyperintense foci along the anterior falciformpresent on the prior study are likely to represent focal fat. Grossly normalappearance of the optic nerves. No abnormal signal in the paranasal sinuses, mastoidair cells, or bone marrow. IMPRESSION No evidence of intracranial metastasis. I have personally reviewed the image(s) and the resident's interpretationand agree with the findings, Abhay Long MD at 06/12/2020 4:58 PM Thank you for letting us participate in the care of this patient. Forquestions regarding this report, please contact the number below. Electronically signed by: Abhay Long MD, [facility]([phone]), at 06/12/2020 4:58 PM Arturo Cordero MD IM MRI ORDERABLES * T4, free (06/12/2020 2:00 PM EST) Free T4 1.01 0.93 - 1.70 ng/dL [facility] Blood specimen (specimen) 06/12/2020 2:00 PM EST 06/12/2020 2:04 PM EST Narrative Resulting Agency Comment Spec In Lab Arturo Cordero MD CHEMISTRY ORDERABLES [facility] [place] [address] * TSH (06/12/2020 2:00 PM EST) Thyroid Stimulating Hormone 2.53 0.27 - 4.20 mcIU/mL [facility] Blood specimen (specimen) 06/12/2020 2:00 PM EST 06/12/2020 2:04 PM EST Narrative Resulting Agency Comment Spec In Lab Arturo Cordero MD CHEMISTRY ORDERABLES Performing Organization Address [facility]/ZIP Co de Phone Number [facility] [place] [address] * Lactate Dehydrogenase (06/12/2020 2:00 PM EST) Pathologist [facility] Lactate Dehydrogenase 198 110 - 220 unit/L [facility] Blood specimen (specimen) 06/12/2020 2:00 PM EST 06/12/2020 2:04 PM EST Narrative Resulting Agency Comment Spec In Lab Arturo Cordero MD CHEMISTRY ORDERABLES Performing Organization Address City/[facility] Co de Phone Number [facility] [place] [address] * Comprehensive metabolic panel (non-fasting) (06/12/2020 2:00 PM EST) Pathologist [facility] Glucose 166 65 - 199 mg/dL [facility] Comment:Diabetes: >=200 mg/d L plus symptoms Blood Urea Nitrogen 17 8 - 18 mg/dL [facility] Creatinine 0.92 0.70 - 1.20 mg/dL [facility] Sodium 140 135 - 145 mmol/L [facility] Potassium 4.3 3.5 - 5.0 mmol/L [facility] Comment: Please note: ??Patients with WBC >100,000 may have falsely elevated Potassium levels. ??For accurate Potassium quantification in these patients send serum separator tube (gold top) for subsequent determinations. ??Contact the Clinical Chemistry Laboratory if there are any questions. Chloride 104 98 - 107 mmol/L [facility] Carbon Dioxide 28 22 - 31 mmol/L [facility] Anion Gap 8 5 - 15 mmol/L [facility] Calcium 9.4 8.5 - 10.5 mg/dL [facility] Protein, Total 6.8 6.1 - 8.0 gm/dL [facility] Albumin 4.4 3.2 - 5.2 gm/dL [facility] Aspartate Aminotransferase 17 0 - 30 unit/L [facility] Alanine Aminotransferase 22 0 - 30 unit/L [facility] Alkaline Phosphatase 102 35 - 105 unit/L [facility] Bilirubin, Total 0.4 0.2 - 1.3 mg/dL [facility] Est Glomerular Filtration Rate 68 >=60 mL/min/1. 73 m?? [facility] Comment: This patient? s estimated glomerular filtration rate (eGFR) is between 68 mL/min/1.73 m2 (patients with less muscle mass) and 78 mL/min/1.73 m2 (patients with more muscle mass) as determined by the CKD-EPI equation. Assessment of eGFR is not appropriate when creatinine concentrations are rapidly changing. For clinical decisions where creatinine clearance will affect therapy, a 24-hour urine creatinine clearance may be advised. Assignment of CKD stage 1 ? 5 for patients with an eGFR near the transition point between stages may be based on clinical assessment of muscle mass and symptoms in addition to eGFR. Blood specimen (specimen) 06/12/2020 2:00 PM EST 06/12/2020 2:04 PM EST Narrative Resulting Agency Comment Spec In Lab Arturo Cordero MD CHEMISTRY ORDERABLES [facility] [place] [address] documented in this encounter Visit Diagnoses Diagnosis Ocular melanoma, left- Primary Renal cell cancer, left Ocular melanoma, left Renal cell cancer, left Malignant melanoma, unspecified site Ocular melanoma, left documented in this encounter Care Teams Lime Kiln Tender Relationship Specialty Start Date End Date Luis E Narayan MD [facility] [place] [address] PCP - General Family Medicine 03/26/19 01/19/22 documented as of this encounter
--- OUTSIDE RECORDS SUMMARY | 2024-03-04 21:26 | XMS_ITS | Encounter Summary ---
Author Organization [facility] Address [facility] [place] [address] Care Team Providers Care Software Support Engineer Name Role Phone Luis E Narayan MD Primary Care Provider [phone]- [phone] Reason for Visit * Reason Comments Post Op Encounter Details Date Type Department Care Team (Late st Contact Info) Description 06/16/2020 8:30 AM EST Office [place] [address] Juanpablo Hernandez MD [facility] [place] [address] Malignant melanoma of conjunctiva, left Social History [...] * Patient Instructions* Juanpablo Hernandez MD - 06/16/2020 8:30 AM EST Medications: Use eye medications as [...] Progress Notes * Juanpablo Hernandez MD - 06/16/2020 8:30 AM EST Images from the original note [...] positive margins, though free edge specimens negative Addendum 05/20/20 - reviewed path with Dr. Loomis. Corneal margins positive as predicted since overlies cornea above Kyle's. Some of the conj margins are positive in sup, inf and lateral edges. But strips from those areas negative. Deep conj margin appears not grossly positive, ie cells to the edge of tissue, but there is definite tumor deep to epithelium. Well healed can stop drops when bottles gone, corneal epith looks good and no nv Will plan for topical MMC 0.04% four times a day for 1 wk interval x 2 or 3 wks. Discussed risks and precautions of treatment. Offered 2nd opinion - she would like if it can be done remotely- will investigate. Long discussion MMC precautions and risks and need for proper disposal and punctal plugs. Discussed with Arturo, he does not plan systemic treatment at this time based on negative met workup and is supportive of topical treatment. Will initiate at 6 to 8 wks after surgery 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 Mild cataract: 20/20 ou NIDDM with A1C of 6.9: no retinopathy seen Current smoker but denies orthopnea Plan: - as above - Follow up 2 wks for punctal plug placement in anticipation of MMC tx or as needed - Findings and concerns [...] [facility] [address] [place] [address] Denisse Hardwick, [facility] 03/20/2024 2:00 PM EDT Clinical Support Family Medicine at [facility] [address] [place] [address] Julia Low, [facility] 05/01/2024 11:20 AM EDT Appointment Mammography/DXA at [place] [phone] Rodney Padilla MD [address] [facility] [place] [address] 05/01/2024 1:45 PM EDT Office [place] [phone] Juanpablo Hernandez MD [facility] [place] [place] [address] 01/30/2025 1:30 PM EDT Appointment Hematology [place] [address] 01/30/2025 3:[address] [place] [address] Arturo Cordero MD [facility] [place] [address] 01/30/2025 4:15 PM EDT Office Visit Hematology [place] [address] Arturo Cordero MD [facility] [place] [address] documented as of this encounter Visit Diagnoses Diagnosis Malignant melanoma of conjunctiva, left documented in this encounter Care Teams Software Support Engineer Relationship Specialty Start Date End Date Luis E Narayan MD [facility] [address] [place] [address] PCP - General Family Medicine 03/26/19 01/19/22 documented as of this encounter
--- OUTSIDE RECORDS SUMMARY | 2024-03-04 21:26 | XMS_ITS | Encounter Summary ---
Author Organization [facility] [place] [address] Care Team Providers Care Tile Finisher Name Role Phone Luis E Narayan MD Primary Care Provider +1- [phone] Reason for Visit * Reason Comments Post Op Encounter Details Date Type Department Care Team (Late st Contact Info) Description 07/02/2020 1:45 PM EST Office [place] [address] Juanpablo Hernandez MD [facility] [place] [address] Malignant melanoma of conjunctiva, left Social History [...] * Patient Instructions* Juanpablo Hernandez MD - 07/02/2020 1:45 PM EST Medications: Use eye medications as [...] Progress Notes * Juanpablo Hernandez MD - 07/02/2020 1:45 PM EST Images from the original note [...] positive margins, though free edge specimens negative After consent and and prep with alcaine and 5% betadine 0.8 mm plug LLL and 0.4 mm plug TEA placed without difficulty Will plan for topical MMC 0.04% four [...] EDT TH Visit (TeleHealth) [facility] [address] [place] [address] Denisse Hardwick, [facility] 03/20/2024 2:00 PM EDT Clinical Support [facility] at [facility] [address] [place] [address] Julia Low, [facility] 05/01/2024 11:20 AM EDT Appointment Mammography/DXA at [place] [phone] Rodney Padilla MD [address] [place] [address] 05/01/2024 1:45 PM EDT Office Visit Ophthalmology at [place] [phone] Juanpablo Hernandez MD [facility] [place] [address] 01/30/2025 1:30 PM EDT Appointment Hematology and Oncology at [place] [phone] 01/30/2025 3:[address] Scan at [place] [phone] Arturo Cordero MD [facility] HEMATOLOGY [place] [address] 01/30/2025 4:15 PM EDT Office Visit Hematology [place] [address] Arturo Cordero MD [facility] HEMATOLOGY [place] [address] documented as of this encounter Visit Diagnoses Diagnosis Malignant melanoma of conjunctiva, left documented in this encounter Care Teams Tile Finisher Relationship Specialty Start Date End Date Luis E Narayan MD [facility] DR [address] [facility]ALK[facility] [address] PCP - General Family Medicine 03/26/19 01/19/22 documented as of this encounter
--- OUTSIDE RECORDS SUMMARY | 2024-03-04 21:26 | XMS_ITS | Encounter Summary ---
Author Organization [facility] Address [facility] [place] [address] Care Team Providers Care Plant Culture Manager Name Role Phone Luis E Narayan MD Primary Care Provider [phone]- [phone] Encounter Details Date Type Department Care Team (Late st Contact Info) Description 06/17/2020 [place] [address] Juanpablo Hernandez MD [facility] [place] [address] Social History Tobacco Use Types Packs/Day Years [...] encounter Miscellaneous Notes * Telephone Encounter - Rosa Mckee - 06/19/2020 11:24 AM EST Pt called back and stated that they called Laura Gordon's office and were told that they do not see patients remotely and that this pt would have to fly down for an evaluation and that is not somethingthat this pt wing like to do - please call pt back at [phone] to discuss the next options * Telephone Encounter - Lida Bains - 06/19/2020 10:57 AM EST Phone number given. * Telephone Encounter - Christine Madera - 06/17/2020 10:12 AM EST Left VM letting Alize know that per her conversation with Dr. Hernandez yesterday[facility]. When Alize calls back please let her know to call [phone] to register for the remote consult documented in this encounter Plan of Treatment Upcoming Encounters Date Type Department Care Team (Late st Contact Info) Description 03/20/2024 9:00 AM EDT TH Visit (TeleHealth) Sleep Center at [facility] [address] [place] [address] Denisse Hardwick, [facility] 03/20/2024 2:00 PM EDT Clinical Support Family Medicine at [facility] [address] [place] [address] Julia Low, [facility] [place] [facility] 05/01/2024 11:20 AM EDT Appointment Mammography/[place] [address] Rodney Padilla MD [address] [place] [place] [address] 05/01/2024 1:45 PM EDT Office [place] [address] Juanpablo Hernandez MD [facility] [address] 01/30/2025 1:30 PM EDT Appointment Hematology [place] [address] 01/30/2025 3:[address] [place] [address] Arturo Cordero MD [facility] [place] [address] 01/30/2025 4:15 PM EDT Office Visit [place]ematology [place] [address] Arturo Cordero MD [facility] [place] [address] documented as of this encounter Visit Diagnoses Not on filedocumented in this encounter Care Teams Plant Culture Manager Relationship Specialty Start Date End Date Luis E Narayan MD [facility] [address] [place] [address] PCP - General Family Medicine 03/26/19 01/19/22 documented as of this encounter
--- OUTSIDE RECORDS SUMMARY | 2024-03-04 21:26 | XMS_ITS | Encounter Summary ---
Author Organization [facility] [place] [address] Care Team Providers Care Residential Pest Control Technician Name Role Phone Luis E Narayan MD Primary Care Provider [phone]- [phone] Reason for Visit * Reason Onset Date Comments Medication Refill 06/25/2020 Encounter Details Date Type Department Care Team (Late Contact Info) Description 06/25/2020 Refill Family Medicine [facility] [address] [place] [address] Bonny Emanuel MD [address] [place] [address] Social History Tobacco Use Types Packs/Day Years [...] EDT TH Visit (TeleHealth) Sleep Center [facility] [address] [place] [phone] Denisse Hardwick, [facility] 03/20/2024 2:00 PM EDT Clinical Support Family Medicine [facility] [address] [place] [address] Julia Low [facility] 05/01/2024 11:20 AM EDT Appointment Mammography/DXA at [place] [phone] Rodney Padilla MD [address] [place] [address] 05/01/2024 1:45 PM EDT Office Visit Ophthalmology at [address] Juanpablo Hernandez MD [facility] [place] [address] 01/30/2025 1:30 PM EDT Appointment Hematology and Oncology at [place] [address] 01/30/2025 3:[address] Scan at [place] [address] Arturo Cordero MD [facility] DR [place] [address] 01/30/2025 4:15 PM EDT Office Visit Hematology and Oncology at [place] [phone] Arturo Cordero MD [facility] DR [place] [address] documented as of this encounter Visit Diagnoses Not on filedocumented in this encounter Care Teams Residential Pest Control Technician Relationship Specialty Start Date End Date Luis E Narayan MD [facility] [address] PCP - General Family Medicine 03/26/19 01/19/22 documented as of this encounter
--- OUTSIDE RECORDS SUMMARY | 2024-03-04 21:26 | XMS_ITS | Encounter Summary ---
Author Organization [place] [address] Care Team Providers Care Hat Trimmer Name Role Phone Luis E Narayan MD Primary Care Provider Encounter Details Date Type Department Care Team (Latest Contact Info) Description 07/22/2020 10:04 AM EST - 07/22/2020 11:59 PM [facility] Hospital Encounter Mammography/[place] [address] Luis E Narayan MD [facility] DR [address] [facility] [address] Encounter for screening mammogram for breast cancer Discharge Disposition: Home [...] (E.C.) Take 81 mg by mouth daily. nicotine (NICOTROL) 10 mg CartridgeIndications:En counter for [...] 08/05/2019 06/14/2021 fluticasone propionate (FLONASE) 50 mcg/actuation [place], Suspension 1 spray by Each Nare route [...] TH Visit (TeleHealth) Sleep Center at [facility] [address] [place] [address] Denisse Hardwick [facility] 03/20/2024 2:00 PM EDT Clinical Support Family Medicine at [facility] [address] [place] [address] Julia Low [facility] 05/01/2024 11:20 AM EDT Appointment Mammography/[place] [address] Rodney Padilla MD [address] [place] [address] 05/01/2024 1:45 PM EDT [place] [address] Juanpablo Hernandez MD [facility] [place] [address] 01/30/2025 1:30 PM EDT Appointment [place] [address] 01/30/2025 3:[address] [place] [place] [address] Arturo Cordero MD [facility] DR HEMATOLOGY [place] [address] 01/30/2025 4:15 PM EDT Office Visit [place] [address] Arturo Cordero MD [facility] DR HEMATOLOGY [place] [address] documented as of this encounter Procedures Procedure Name Priority Date/Time Associated Diagnosis Comments MAMMO SCREENING CAD AND FEROZ BILATERAL Routine 07/22/2020 10:24 AM EST Encounter for screening mammogram for breast cancer documented in this encounter Results * Mammo Screening Cad and Feroz Bilateral (07/22/2020 10:24 AM EST) Anatomical Region Laterality Modality Breast Bilateral Mammography Narrative 07/22/2020 11:01 AM EST BILATERAL MAMMOGRAPHY REASON FOR EXAM: [...] [facility]. BIRADS CATEGORY 1: NEGATIVE Luis E Narayan MD IMG MAMMO ORDERABLE S documented in this encounter Visit Diagnoses Diagnosis Encounter for screening mammogram for breast cancer documented in this encounter Care Teams Hat Trimmer Relationship Specialty Start Date End Date Luis E Narayan MD [facility] [address] [place] [address] PCP - General Family Medicine 03/26/19 01/19/22 documented as of this encounter
--- OUTSIDE RECORDS SUMMARY | 2024-03-04 21:26 | XMS_ITS | Encounter Summary ---
Author Organization [facility] [place] [address] Care Team Providers Care Newspaper Distributor Supervisor Name Role Phone Luis E Narayan MD Primary Care Provider Reason for Referral * Diagnostic Test (Routine) - Closed Specialty Diagnoses / Procedures Referred By Contchrissy kumari Referred To Contact Radiology Diagnoses Ocular melanoma, left Malignant melanoma, unspecified site Procedures CT Neck Soft Tissue w Contrast (Generic) Arturo Cordero MD [facility] [address] [place] [address] [facility] [place] [address] Referral ID Status Reason Start Date Expiration Date V isits Requested Visits Authorized [id number] Closed Specialty Service Requested 06/08/2020 12/06/2021 1 1 Encounter Details Date Type Department Care Team (Late st Contact Info) Description 06/08/2020 Orders Only [place]ematology [place] [address] Arturo Cordero MD [facility] [address] [place] [address] Ocular melanoma, left; Malignant melanoma, unspecified site Social History [...] Sleep Center at [facility] [address] [place] [address] Denisse Hardwick, [facility] 03/20/2024 2:00 PM EDT Clinical Support Family Medicine at [facility] [address] [place] [address] Julia Low, [facility] 05/01/2024 11:20 AM EDT Appointment Mammography/DXA at [place] [phone] Rodney Padilla MD [address] [facility] [place], [place] [address] 05/01/2024 1:45 PM EDT Office Visit Ophthalmology at [place] [phone] Juanpablo Hernandez MD [facility] [place] [address] 01/30/2025 1:30 PM EDT Appointment Hematology [place] [address] 01/30/2025 3:[address] Scan at [place] [phone] Arturo Cordero MD [facility] [address] [place] [address] 01/30/2025 4:15 PM EDT Office Visit [place]ematology [place] [address] Arturo Cordero MD [facility] [address] [place] [address] documented as of this encounter Results * [...] the number below. ? Electronically signed by: Zain Saxena [facility] ([phone]), at 06/13/2020 8:54 AM Narrative 06/13/2020 8:54 [...] contact the number below. Electronically signed by: Zain Saxena [facility]([phone]), at 06/13/2020 8:54 AM Arturo Cordero MD IMG CT ORDERABLES documented in this encounter Visit Diagnoses Diagnosis Ocular melanoma, left Malignant melanoma, unspecified site Ocular melanoma, left Renal cell cancer, left Malignant melanoma, unspecified site documented in this encounter Care Teams Newspaper Distributor Supervisor Relationship Specialty Start Date End Date Luis E Narayan MD [facility] [place] [address] PCP - General Family Medicine 03/26/19 01/19/22 documented as of this encounter
--- OUTSIDE RECORDS SUMMARY | 2024-03-04 21:26 | XMS_ITS | Encounter Summary ---
Author Organization [facility] Address [facility] [place] [address] Care Team Providers Care Head Sampler Name Role Phone Luis E Narayan MD Primary Care Provider Reason for Referral * Consultation (Routine) - Closed Specialty Diagnoses / Procedures Referred By Gonzalez kumari Referred To Contact Hematology and Oncology Diagnoses Malignant melanoma of conjunctiva, left Molly Monique MD [facility] DR HEMATOLOGY/[place] [address] [facility] Hem [address]c [address] [place] [address] Referral ID Status Reason Start Date Expiration Date V isits Requested Visits Authorized [id number] Closed Consult, Test & Treat 06/16/2020 06/16/2021 1 1 Encounter Details Date Type Department Care Team (Late st Contact Info) Description 06/16/2020 10:00 AM EST Office Visit H[place] [address] Arutro Cordero MD [facility] DR HEMATOLOGY [place] [address] Leandra Lopes, TAG WRITER [facility] DR HEMATOLOGY [place] [address] Malignant melanoma of conjunctiva, left (Primary Dx); Anxiety; History of renal cell cancer Social History Tobacco Use Types Packs/Day Years Used Date Smoking Tobacco: Every Day Cigarettes 1 40 Smokeless Tobacco: Never Tobacco Cessation:Ready to Q uit: No; Counseling Given: No Comments:Not today. Very anxious Alcohol Use Standard Drinks/Week Comments No 0 (1 standard drink = 0.6 oz pur e alcohol) Sex and Gender Information Value Date Recorded Sex Assigned at Not on file Gender Identity Not on file Sexual Orientation Not on file documented as of this encounter Last Filed Vital Signs Vital Sign Reading Time Taken Comments Blood Pressure 131/65 06/16/2020 10:19 AM EST Pulse 63 06/16/2020 10:19 AM EST Temperature 36.1 ??C (97 ??F) 06/16/2020 10: 19 AM EST Respiratory Rate 20 06/16/2020 10:1 9 AM EST Oxygen Saturation 99% 06/16/2020 10: 19 AM EST Inhaled Oxygen Concentration - - Weight 113.7 kg (250 lb 9.6 oz) 020 10:19 AM EST Height 159.4 cm (5' 2.75) 06/16/2020 1 0:19 AM EST Body Mass Index 44.75 06/16/2020 10:19 AM EST documented in this encounter Progress Notes * Molly Monique MD - 06/16/2020 10:00 AM EST Images from the original note were not included. [facility] FOLLOW UP NOTE REFERING PHYSICIAN: Dr. Juanpablo Hernandez DIAGNOSIS: Left eye conjunctival melanoma PATH: L eye conjunctival melanoma, depth 0.6mm, mitosis 1/mm2, No PNI or LVI, does not meet criteria for ulceration. Positive for PRAME immunostain. NF1 mutation, no BRAF, no CKIT CURRENT TX: Status post excision on 05/14/2020 Plan for topical mitomycin-C Left partial nephrectomy on 06/28/[address] 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 Medina - 03/31/2020: saw her health care social worker Dr. 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 - 05/14/2020: Underwent excision of the limbal lesion which was positive for melanoma Referred to melanoma clinic on 05/26/2020 to discuss treatment/follow-up options - 06/12/2020: CT Neck/Chest/Abd/Pelvis and MRI brain without evidence of distant metastases HPI: Patience Manjarrez is a 59 y.o. female with past medical history of left-sided renal cell carcinoma s/ppartial nephrectomy, type II diabetes, coronary artery disease, hyperlipidemia, hypertension, depression/anxiety, and TITO, who is presented to the oncology clinic on 05/26/2020 to discuss evaluation/management for her conjunctival melanoma. INTERVAL HISTORY: Patience presents in follow up with her daughter to go over recent CT scan and discuss follow-up plans. Since last seen she had staging imaging with CT neck/C/A/P and MRI brain without evidence of metastases. She continues on moxifloxacin and pred forte drops for her left eye. Left eye has persistent intermittent gritty irritation, but denies pain. Has sensitivity to light. She has some blurriness in the left eye, but reportedly 20/20 visual acuity on exam. Saw Dr. Hernandez this morning with plan to pursue topical mitomycin C. Overall she has been extremely nervous/anxious and depressed about her new cancer diagnosis. Havinga very difficult time coping, though expresses some degree of reassurance now that she knows her scans did not reveal evidence of distant metastatic disease. REVIEW OF SYSTEMS: Constitutional: No fever, no [...] uses inhalerswith good effect ??? Atherosclerosis of [place] coronary artery of [place] heart with angina pectoris 10/09/2007 History of [...] 3.47) performed by Juanpablo Hernandez MD at [facility] ??? PRO EXCIS CORNEA LESN Left 05/14/2020 EXCISION OF LESION, CORNEA, EXCEPT PTERYGIUM (WRVU 7.5) performed by Juanpablo Hernandez MD at [facility] ??? PRO LAP, PARTIAL NEPHRECTOMY Left 06/28/2019 LAPAROSCOPY, PARTIAL NEPHRECTOMY, ROBOTIC ASSIST (WRVU 27.41) performed by Avila Medina MD at [facility] MAIN OR ??? 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 in good mood and spirits BP 131/65 (Patient Position: Sitting) Pulse 63 Temp 36.1 ??C (97 ??F) (Temporal) Resp 20 Ht159.4 cm (5' 2.75) Wt 113.7 kg (250 lb 9.6 oz) SpO2 99% BMI 44.75 kg/m?? Eyes: Not icteric, left eye conjunctiva with some persistent irritation but decreased redness. Right eye is normal in appearance. Oral: clear. No mucosal abnormalities. Neck: Supple. No lymphadenopathy. Lungs: Bilaterally clear to auscultation, No wheezing, No crackles Heart: Regular rate and rhythm. Abdomen: Soft, no tenderness, no mass, normal active bowel sounds. Extremities: No edema. Skin: No rash Neuro: No focal weakness LABS: Labs 06/12/20 reviewed: - CBC unremarkable - CMP unremarkable - LDH 198 - Thyroid studies unremarkable IMAGING STUDIES: CT Chest/Abd/Pelvis 06/12/20: Single 10 mm short axis left paratracheal lymph node. No other pathologically enlarged lymph nodes in the chest, abdomen or pelvis. No pulmonary nodules. Mild diffuse fatty infiltration liver without focal lesion. Stable left lipid rich adrenal adenoma. No recurrence status post partial left nephrectomy. CT Neck w/ Contrast 06/12/20 No evidence for cervical metastatic disease. MRI Brain w/wout Contrast 06/12/20: No evidence of intracranial metastasis. ASSESSMENT AND PLAN: 59y/o woman with history of RCC s/p left nephrectomy presenting for evaluation of Left eye conjunctival melanoma s/p resection without evidence of distant metastases. NF1 mutation, no BRAF, no CKIT Given her cancer is limited to the conjunctiva, we agree with topical chemotherapy with mitomycin-Sample Tester be managed by Dr. Hernandez in Ophthalmology. Fortunately she does not have evidence of distant metastases and thus there is no indication for systemic therapy at this time. We reviewed plan for veryclose surveillance given high risk of recurrence/ran metastasis, with plan for ultrasound left neck every 3-4mo and CT neck/chest/abd/pelvis every 6mo for 2-3 years then annually thereafter. Also recommend referral to the familial cancer program given her strong family history of RCC and her personal history of RCC and melanoma. Lastly, recommend close follow up with her counselor to assist with coping with her cancer diagnoses in the setting of her significant anxiety/depression, with the reassurance that she has been curedfrom both RCC and melanoma and will be monitored closely. She will reach out to us if she needs additional support. RTC in 3mo with labs and neck ultrasound of ran basin. This patient was evaluated with Dr. Cordero who agrees with the plan as above. Molly Monique MD Hematology/Oncology Fellow ATTENDING NOTE: Left conjunctival melanoma,NF1 mutation, no BRAF, no CKIT mutation was seen Staging CT scan including neck was negative for obvious lymph node or distant metastasis. After discussion we decided to follow her closely especially for the first 2 to 3 years. For local control, patient will proceed with topical mitomycin-C treatment under Dr. Hernandez. I have seen and examined the patient by myself with Dr. Monique and agree with the above plans described. Arturo Cordero MD documented in this encounter Plan of Treatment Upcoming Encounters Date Type Department Care Team (Late st Contact Info) Description 03/20/2024 9:00 AM EDT TH Visit (TeleHealth) Sleep Center at [facility] [address] [place] [phone] Denisse Hardwick, OR[facility]OPEDIC ASSISTANT [facility] 03/20/2024 2:00 PM EDT Clinical Support Family Medicine at [facility] [address] [place] [address] Julia Low, [facility] 05/01/2024 11:20 AM EDT Appointment Mammography/[place] [address] Rodney Padilla MD [address] [place] [address] 05/01/2024 1:45 PM EDT Office [place] [address] Juanpablo Hernandez MD [facility] [place] [address] 01/30/2025 1:30 PM EDT Appointment Hematology and Oncology at [place] [phone] 01/30/2025 3:[address] [place] [address] Arturo Cordero MD [facility] DR HEMATOLOGY [place] [address] 01/30/2025 4:15 PM EDT Office Visit Hematology [place] [address] Arturo Cordero MD [facility] DR HEMATOLOGY [place] [address] Scheduled Orders Name Type Priority Associated Diagnoses Orde r Schedule CBC (with Diff) Lab Routine Malignant melanoma of conjunctiva, left Expected: 09/16/2020 (Approximate), Expires: 06/16/2021 Comprehensive metabolic panel (non-fasting) Lab Routine Malignant melanoma of conjunctiva, left Expected: 09/16/2020 (Approximate), Expires: 06/16/2021 Lactate Dehydrogenase Lab Routine Malignant melanoma of conjunctiva, left Expected: 09/14/2020, Expires: 03/16/2021 Scheduled Referrals Name Type Priority Associated Diagnoses Orde r Schedule Referral to Familial Cancer Outpatient Referral Routine Malignant melanoma of conjunctiva, left Ordered: 06/16/2020 documented as of this encounter Results * US Soft Tissue [...] below. Electronically signed by: Nakia Goetz MD, [facility] ([phone]), at 09/15/2020 9:54 AM ? Nakia Goetz, Staff Physician Electronically Signed Final Report ?? 09/15/2020 10:01 am Narrative 09/15/2020 10:01 AM EST Ultrasound Soft Tissue ?(Signed Final 09/15/2020 10:01 am) Neck or Head Report -Left Neck PATIENT INFO: ID #: ? [id number] ?: ??[birth year] (59 yrs)(F) Name: ? PATIENCE MANJARREZ ? Visit Date: 09/15/2020 09:42 am PERFORMED BY: Performed By: ? Kaela Bruno RDMS Attending: ?Sofy COLVIN, Nakia Andrade Referred By: ?ARTURO [facility] Location: ? [place] SERVICE(S) PROVIDED: USTN - Soft Tissue Neck or Head - [id number] ? [id number] INDICATIONS: History of left eye conjunctival melanoma [...] Report -Left Neck PATIENT INFO: ID #: [id number] : 58 (59 yrs)(F) Name: PATIENCE MANJARREZ Visit Date: 09/15/2020 09:42 am PERFORMED BY: Performed By: Kaela rBuno RDMS Attending: Nakia Goetz MD Referred By: ARTURO CORDERO Location: [place] SERVICE(S) PROVIDED: USTN - Soft Tissue Neck or Head - [id number] INDICATIONS: History of left eye conjunctival melanoma [...] below. Electronically signed by: Nakia Goetz MD, [facility] ([phone]), at 09/15/2020 9:54 AM Nakia Goetz, Staff Physician Electronically Signed Final Report 09/15/2020 10:01 am Arturo Cordero MD IMG US GEN ORDERABLE S documented in this encounter Visit Diagnoses Diagnosis Malignant melanoma of conjunctiva, left- Primary Anxiety Anxiety state, unspecified History of renal cell cancer Malignant melanoma of conjunctiva, left documented in this encounter Care Teams Head Sampler Relationship Specialty Start Date End Date Luis E Narayan MD [facility] [address] [facility] [address] PCP - General Family Medicine 03/26/19 01/19/22 documented as of this encounter
--- OUTSIDE RECORDS SUMMARY | 2024-03-04 21:26 | XMS_ITS | Encounter Summary ---
Author Organization [facility] [place] [address] Care Team Providers Care Regional Director Name Role Phone Luis E Narayan MD Primary Care Provider [phone] Encounter Details Date Type Department Care Team (Late st Contact Info) Description 07/14/2020 Telephone Family Medicine at [facility] [address] [place] [address] Toyin Rodriguez Social History Tobacco Use Types Packs/Day Years [...] * Telephone Encounter - Silvio Alonzo - 07/16/2020 9:47 AM EST Law [place] form(s) received from escrow secretary bin and placed in provider folder. * Telephone Encounter - Toyin Arboleda LNA - 07/14/2020 4:22 PM EST Law office [place] form(s) received via [employer] fax gravity meter observer. Two patient identifiers confirmed on form(s) Form(s) printed and placed in team escrow secretary mail bin. documented in this encounter Plan of Treatment Upcoming Encounters Date Type Department Care Team (Late st Contact Info) Description 03/20/2024 9:00 AM EDT TH Visit (TeleHealth) Sleep Center at [facility] [address] [place] [phone] Denisse Hardwick, COMMAND CENTER ANALYST [facility] 03/20/2024 2:00 PM EDT Clinical Support Family Medicine at [facility] [address] [place] [address] Julia Low, [facility] 05/01/2024 11:20 AM EDT Appointment Mammography/[place] [address] Rodney Padilla MD [address] [place] [place] [address] 05/01/2024 1:45 PM EDT Office [place] [address] Juanpablo Hernandez MD [facility] [place] [address] 01/30/2025 1:30 PM EDT Appointment Hematology [place] [address] 01/30/2025 3:[address] [place] [address] Arturo Cordero MD [facility] HEMATOLOGY AND ONCOLOGY [place], [place] [id number] 01/30/2025 4:15 PM EDT Office Visit Hematology [place] [address] Arturo Cordero MD [facility] [place] [address] documented as of this encounter Visit Diagnoses Not on filedocumented in this encounter Care Teams Regional Director Relationship Specialty Start Date End Date Luis E Narayan MD [facility] [address] [place] [address] PCP - General Family Medicine 03/26/19 01/19/22 documented as of this encounter
--- OUTSIDE RECORDS SUMMARY | 2024-03-04 21:26 | XMS_ITS | Encounter Summary ---
Author Organization [facility] [place] [address] Care Team Providers Care Dimension Warehouse Supervisor Name Role Phone Luis E Narayan MD Primary Care Provider Reason for Referral * Diagnostic Test (Routine) - Closed Specialty Diagnoses / Procedures Referred By Contac t Referred To Contact Radiology Diagnoses Ocular melanoma, left Procedures MRI Brain wwo Contrast (Generic) Sri Frederick MD [facility] DR HEMATOLOGY/[place] [address] [place] [address] Referral ID Status Reason Start Date Expiration Date V isits Requested Visits Authorized [id number] Closed Specialty Service Requested 05/26/2020 11/23/2021 1 1 Reason for Visit * Diagnostic Test (Routine) - Closed Specialty Diagnoses / Procedures Referred By Contac t Referred To Contact Radiology Diagnoses Ocular melanoma, left Procedures MRI Brain wwo Contrast (Generic) Sri Frederick MD [facility] HEMATOLOGY/[place] [address] [place] [address] Referral ID Status Reason Start Date Expiration Date V isits Requested Visits Authorized [id number] Closed Specialty Service Requested 05/26/2020 11/23/2021 1 1 Encounter Details Date Type Department Care Team (Latest Contact Info) Description 06/12/2020 2:05 PM EST - 06/12/2020 3:31 PM EST Hospital Encounter [place] [facility] [place] [address] Arturo Cordero MD [facility] DR HEMATOLOGY [place] [address] Ocular melanoma, left Discharge Disposition: Home Social [...] 08/05/2019 06/14/2021 fluticasone propionate (FLONASE) 50 mcg/actuation [place], Suspension 1 spray by Each Nare route [...] [facility] [address] [place] [address] Denisse Hardwick, [facility] 03/20/2024 2:00 PM EDT Clinical Support Family Medicine [facility] [address] [place] [address] Julia Low, [facility] 05/01/2024 11:20 AM EDT Appointment Mammography[place] [address] Rodney Padilla MD [address] [place], [place] [id number] 05/01/2024 1:45 PM EDT Office [place] [address] Juanpablo Hernandez MD [facility] [place] [address] 01/30/2025 1:30 PM EDT Appointment Hematology [place] [address] 01/30/2025 3:[address] [place] [address] Arturo Cordero MD [facility] HEMATOLOGY [place] [address] 01/30/2025 4:15 PM EDT Office Visit [place]ematology [place] [address] Arturo Cordero MD [facility] DR HEMATOLOGY AND ONCOLOGY [place], [place] [id number] documented as of this encounter Procedures Procedure Name Priority Date/Time Associated Diagnosis Comments MRI BRAIN WWO CONTRAST (GENERIC) Routine 06/12/2020 3:20 PM EST Ocular melanoma, left documented in this encounter Results * MRI Brain wwo Contrast (Generic) (06/12/2020 [...] ? Electronically signed by: Abhay Long MD, [facility] ([phone]), at 06/12/2020 4:58 PM Narrative 06/12/2020 4:58 [...] below. Electronically signed by: Abhay Long MD, [facility]([phone]), at 06/12/2020 4:58 PM Arturo Cordero MD IM MRI ORDERABLES documented in this encounter Visit Diagnoses Diagnosis Ocular melanoma, left documented in this encounter Administered Medications Inactive Administered Medications - up to 3 most recent administrations Medication Order MAR Action Action Date Dose Rate Site gadoterate meglumine (Dotarem) (0.5 mMol/mL) injection solution 21.6 mL 21.6 mL (0.2 mL/kg/dose ? 108 kg), Intravenous, ONCE PRN, 1 dose, Starting on Mon06/12/20 at 1501, Until Mon06/12/20 at 1510, Per Protocol, Radiology Contrast, Routine Given 06/12/2020 3:10 PM EST 21.6 mLs documented in this encounter Care Teams Dimension Warehouse Supervisor Relationship Specialty Start Date End Date Luis E Narayan MD [facility] [address] PCP - General Family Medicine 03/26/19 01/19/22 documented as of this encounter
--- OUTSIDE RECORDS SUMMARY | 2024-03-04 21:26 | XMS_ITS | Encounter Summary ---
Author Organization [facility], [facility] [place] [address] Care Team Providers Care Tool Radial Drill Press Set Up Operator Name Role Phone Luis E Narayan MD Primary Care Provider [phone]- [phone] Reason for Referral * Consultation (Urgent) - Closed Specialty Diagnoses / Procedures Referred By Gonzalez kumari Referred To Contact Hematology and Oncology Diagnoses Conjunctival tumor Juanpablo Hernandez MD [facility] [address] [facility] Hem Onc [address] [place] [address] Referral ID Status Reason Start Date Expiration Date V isits Requested Visits Authorized [id number] Closed Consult, Test & Treat 05/19/2020 05/19/2021 1 1 Reason for Visit * Reason Comments Post Op Encounter Details Date Type Department Care Team (Late st Contact Info) Description 05/19/2020 10:15 AM EST Office [place] [phone] Juanpablo Hernandez MD [facility] [place] [address] Conjunctival tumor; Malignant melanoma of conjunctiva, left Social History [...] Progress Notes * Juanpablo Hernandez MD - 05/19/2020 10:15 AM EST Images from the original note were not included. Encounter Diagnoses Name Primary? 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 No personal history of melanoma, but lots of other cancer in her family, current smoker POD5 Healing well. Precautions reviewed, PF and Moxi qid OS, shield eye all times, tdex as needed Spoke with Pathology. It looks like a melanoma. Will refer to oncology now. Will consider additional topical meds, MMC or INF pending consultation with Hem/Onc in next few days Addendum 05/20/20 - reviewed path with Dr. Loomis. Corneal margins positive as predicted since overlies cornea above Kyle's. Some of the conj margins are positive in sup, inf and lateral edges. But strips from those areas negative. Deep conj margin appears not grossly positive, ie cells to the edge of tissue, but there is definite tumor deep to epithelium. Spoke with Dr. Gordon at [facility] in a general way about this case. She would advocate adjuvant MMC 1-31 wk rounds qid pending outcome of systemic work up. If systemic melanoma is present, then treatment will be systemic. 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 -Upon Return IOP MR if vision down by 2 lines compared to last visit documented in this encounter Plan of Treatment Upcoming Encounters Date Type Department Care Team (Late st Contact Info) Description 03/20/2024 9:00 AM EDT TH Visit (TeleHealth) Sleep Center at [facility] [address] [place] [address] Denisse Hadrwick, [facility] 03/20/2024 2:00 PM EDT Clinical Support Family Medicine at [facility] [address] [place] [address] Julia Low, [facility] 05/01/2024 11:20 AM EDT Appointment Mammography/[place] [address] Rodney Padilla MD [address] [facility] [address] 05/01/2024 1:45 PM EDT Office Visit Ophthalmology at [place] [phone] Juanpablo Hernandez MD [facility] [place] [address] 01/30/2025 1:30 PM EDT Appointment Hematology and Oncology at [place] [phone] 01/30/2025 3:[address] Scan at [place] [address] Arturo Cordero MD [facility] [place] [address] 01/30/2025 4:15 PM EDT Office Visit Hematology and Oncology at [place] [phone] Arturo Cordero MD [facility] [place] [address] Scheduled Referrals Name Type Priority Associated Diagnoses Order Schedule Referral to Hematology and Oncology Outpatient Referral Routine Conjunctival tumor Ordered: 05/19/2020 documented as of this encounter Visit Diagnoses Diagnosis Conjunctival tumor Neoplasms of unspecified nature, other specified sites Malignant melanoma of conjunctiva, left documented in this encounter Care Teams Tool Radial Drill Press Set Up Operator Relationship Specialty Start Date End Date Luis E Narayan MD [facility] [address] [place] [address] PCP - General Family Medicine 03/26/19 01/19/22 documented as of this encounter
--- OUTSIDE RECORDS SUMMARY | 2024-03-04 21:26 | XMS_ITS | Encounter Summary ---
Author Organization [facility] [place] [address] Care Team Providers Care Refrigeration Technician Name Role Phone Luis E Narayan MD Primary Care Provider [phone]- [phone] Reason for Visit * Reason Onset Date Comments Medication Refill 06/01/2020 Pred Forte to [facility] Encounter Details Date Type Department Care Team (Late st Contact Info) Description 06/01/2020 [place] [address] Juanpablo Hernandez MD [facility] [place] [address] Conjunctival tumor Social History Tobacco Use Types [...] Center at [facility] [address] [place] [address] Denisse Hardwick, [facility] 03/20/2024 2:00 PM EDT Clinical Support Family Medicine at [facility] [address] [place] [address] Julia Low, [facility] 05/01/2024 11:20 AM EDT Appointment Mammography/DXA at [place] [phone] Rodney Padilla MD [address] [facility] [place] [address] 05/01/2024 1:45 PM EDT Office Visit Ophthalmology at [place] [address] Juanpablo Hernandez MD [facility] [place] [address] 01/30/2025 1:30 PM EDT Appointment Hematology and Oncology at [place] [address] 01/30/2025 3:[address] Scan at [place] [address] Arturo Cordero MD [facility] [place] [address] 01/30/2025 4:15 PM EDT Office Visit Hematology and Oncology at [place] [address] Arturo Cordero MD [facility] [place] [address] documented as of this encounter Visit Diagnoses Diagnosis Conjunctival tumor Neoplasms of unspecified nature, other specified sites documented in this encounter Care Teams Refrigeration Technician Relationship Specialty Start Date End Date Luis E Narayan MD [facility] [address] [place] [address] PCP - General Family Medicine 03/26/19 01/19/22 documented as of this encounter
--- OUTSIDE RECORDS SUMMARY | 2024-03-04 21:26 | XMS_ITS | Encounter Summary ---
Author Organization [facility] [place] [address] Care Team Providers Care Wood Filler Name Role Phone Luis E Narayan MD Primary Care Provider [phone]- [phone] Reason for Visit * Reason Onset Date Comments Medication Problem 08/10/2020 Pharmacist as micha for call back Encounter Details Date Type Department Care Team (Late st Contact Info) Description 08/10/2020 [place] [address] [facility] [address] Medication Problem (Pharmacist asking for call back) Social History Tobacco Use Types Packs/Day Years [...] * Telephone Encounter - Chantell Dukes - 08/11/2020 5:46 PM EST LMOAM x 1 to check in and see if she has been contacted about the medication and delivery. * Telephone Encounter - Brenda Estrada COT - 08/10/2020 12:24 PM EST Pharmacist/Moiz KING asking for review of quantity for MMC given dosing dispensing a 2 ml bottle would be recommended. Asking for call back for verbal okay. Juanpablo Hernandez MD at 07/31/2020 ??3:15 PM Author Type: Physician Status: Signed Agile Project Manager: Juanpablo Hernandez MD (Physician) Encounter Diagnosis Name Primary? Malignant melanoma of conjunctiva, left ?? Alize Gramajo is a 59 y.o. with the following ophthalmic problems: ?? Melanoma of conjunctiva OS s/p excision with cryo 05/14/2020 ?? in patient with h/o renal cell carcinoma and previously history of pigmented pingueculae for more than 10 years. No personal history of melanoma, but lots of other cancer in her family, current smoker - possible positive margins, though free edge specimens negative ?? Punctal plugs in place, no evidence of recurrence, Has telehealth appt with Dr. Gordon ?? Will plan for topical MMC 0.04% four times a day for 1 wk interval x 2 or 3 wks. Discussed risks and precautions of treatment. Offered 2nd opinion - she would like if it can be done remotely- will investigate. Long discussion MMC precautions and risks and need for proper disposal and punctal plugs. ?? Discussed with Arturo, he does not plan systemic treatment at this time based on negative met workup and is supportive of topical treatment. ?? Delay on drops due to insurance issues with drops. Tadeo Madera working on it with Alize ?? 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 documented in this encounter Plan of Treatment Upcoming Encounters Date Type Department Care Team (Late st Contact Info) Description 03/20/2024 9:00 AM EDT TH Visit (TeleHealth) Sleep Center at [facility] [address] [place] [address] Denisse Hardwick, [facility] 03/20/2024 2:00 PM EDT Clinical Support Family Medicine at [facility] [address] [place] [address] Julia Low, [facility] 05/01/2024 11:20 AM EDT Appointment Mammography/DXA at [place] [phone] Rodney Padilla MD [address] [place] [address] 05/01/2024 1:45 PM EDT Office Visit Ophthalmology at [place] [address] [facility] [place] [address] 01/30/2025 1:30 PM EDT Appointment Hematology and Oncology at [place] [address] 01/30/2025 3:[address] Scan at [place] [address] [facility] [place] [address] 01/30/2025 4:15 PM EDT Office Visit Hematology and Oncology at [place] [address] [facility] [address] [place] [address] documented as of this encounter Visit Diagnoses Not on filedocumented in this encounter Care Teams Wood Filler Relationship Specialty Start Date End Date Luis E Narayan MD [facility] [place] [address] PCP - General Family Medicine 03/26/19 01/19/22 documented as of this encounter
--- OUTSIDE RECORDS SUMMARY | 2024-03-04 21:26 | XMS_ITS | Encounter Summary ---
Author Organization [facility] [place] [address] Care Team Providers Care Multi Operation Forming Machine Setter Name Role Phone Luis E Narayan MD Primary Care Provider [phone] Encounter Details Date Type Department Care Team (Latest Contact Info) Description 06/12/2020 1:43 PM EST - 06/12/2020 2:04 PM EST Hospital Encounter [place]ematology [place] [address] Ocular melanoma, left Discharge Disposition: Home Social [...] 08/05/2019 06/14/2021 fluticasone propionate (FLONASE) 50 mcg/actuation [place], Suspension 1 spray by Each Nare route [...] EDT TH Visit (TeleHealth) Sleep Center at [facility] [address] [place] [address] Denisse Hardwick, [facility] 03/20/2024 2:00 PM EDT Clinical Support Family Medicine at [facility] [address] [place] [address] Julia Low, [facility] 05/01/2024 11:20 AM EDT Appointment Mammography/[place] [address] Rodney Padilla MD [address] [facility] [place] [address] 05/01/2024 1:45 PM EDT Office [place] [address] Juanpablo Hernandez MD [facility] [place] [address] 01/30/2025 1:30 PM EDT Appointment Hematology [place] [address] 01/30/2025 3:[address] [place] [address] Arturo Cordero MD [facility] [place] [address] 01/30/2025 4:15 PM EDT Office Visit [place]ology [place] [phone] Arturo Cordero MD [facility] [place] [address] documented as of this encounter Procedures Procedure Name Priority Date/Time Associated Diagnosis Comments HEMOGRAM Routine 06/12/2020 2:00 PM EST Ocular melanoma, left DIFFERENTIAL, AUTOMATED Routine 06/12/2020 2:00 PM EST Ocular melanoma, left HC CBC,PLT & AUTO DIFF Routine 0 2:00 PM EST Ocular melanoma, left HC THYROID STIMULATING HORMONE, SERUM Routine 06/12/2020 2:00 PM EST Ocular melanoma, left HC FREE THYROXINE (T4) Routine 0 2:00 PM EST Ocular melanoma, left HC LACTIC DEHYDROGENASE Routine 06/12/2020 2:00 PM EST Ocular melanoma, left COMPREHENSIVE METABOLIC PANEL Routine 06/12/2020 2:00 PM EST Ocular melanoma, left documented in this encounter Results * Differential, Automated (06/12/2020 2:00 PM EST) Neutrophil % 57.4 % [facility] Neutrophil Absolute 4.65 1.70 - 6.10 x10(3)/[facility] Lymph % 32.2 % [facility] Lymphocytes Abs 2.6 0.9 - 3.2 x10(3)/[facility] Monocyte % 7.6 % [facility] Monocyte Abs 0.6 0.3 - 0.9 x10(3)/[facility] Eos % 1.6 % [facility] Eosinophils Abs 0.1 0.0 - 0.4 x10(3)/[facility] Basophil % 0.7 % [facility] Baso Absolute 0.1 0.0 - 0.1 x10(3)/[facility] Immature Gran % 0.50 % [facility] Comment: Immature granulocytes(IG's)percentage and absolute count will include metamyelocytes, myelocytes, and promyelocytes. Blood smears from CBCs yielding IG's will be scanned manually for concordance. If this scan disagrees with the automated IG or if promyelocytes are noted, a manual differential will be performed. Immature Gran Absolute 0.04 0.00 - 0.04 x10(3)/[facility] Blood specimen (specimen) 06/12/2020 2:00 PM EST 06/12/2020 2:04 PM EST Narrative Resulting Agency Comment Spec In Lab Sri Frederick MD HEMATOLOGY ORDERABLE S [facility] [place] [address] * Hemogram (06/12/2020 2:00 PM EST) White Blood Cell 8.1 4.0 - 9.5 x10(3)/[facility] Red Blood Cell 4.67 4.00 - 5.21 x10(6)/[facility] Hemoglobin 13.4 11.7 - 15.5 gm/dL [facility] Hematocrit 40.7 35.7 - 45.8 % [facility] Mean Cell Volume 87.2 82.6 - 94.4 fL [facility] Mean Cell Hemoglobin 28.7 27.1 - 32.0 pg [facility] Mean Cell Hemoglobin Concentration 32.9 31.7 - 35.0 gm/dL [facility] Platelet 350 145 - 357 x10(3)/[facility] RDW Standard Deviation 42.6 37.0 - 46.0 fL [facility] RDW coefficient of variation 13.4 11.5 - 14.1 % [facility] Mean Platelet Volume 9.2 7.6 - 12.9 fL [facility] NRBC% auto 0.0 % [facility] NRBC Absolute 0.000 0.000 - 0.000 x10(3)/[facility] Blood specimen (specimen) 06/12/2020 2:00 PM EST 06/12/2020 2:04 PM EST Narrative Resulting Agency Comment Spec In Lab Sri Frederick MD HEMATOLOGY ORDERABLE S Performing Organization Address City/State/[facility] Co de Phone Number [facility] [place] [address] * Comprehensive metabolic panel (non-fasting) (06/12/2020 2:00 PM EST) Glucose 166 65 - 199 mg/dL [facility] Comment:Diabetes: >=200 mg/d L plus symptoms Blood Urea Nitrogen 17 8 - 18 mg/dL [facility] Creatinine 0.92 0.70 - 1.20 mg/dL [facility] Sodium 140 135 - 145 mmol/L [facility] Potassium 4.3 3.5 - 5.0 mmol/L [facility] Comment: Please note: ??Patients with WBC >100,000 may have falsely elevated Potassium levels. ??For accurate Potassium quantification in these patients send serum separator tube (gold top) for subsequent determinations. ??Contact the Clinical Chemistry Laboratory if there are any questions. Chloride 104 98 - 107 mmol/L [facility] Carbon Dioxide 28 22 - 31 mmol/L [facility] Anion Gap 8 5 - 15 mmol/L [facility] Calcium 9.4 8.5 - 10.5 mg/dL [facility] Protein, Total 6.8 6.1 - 8.0 gm/dL [facility] Albumin 4.4 3.2 - 5.2 gm/dL [facility] Aspartate Aminotransferase 17 0 - 30 unit/L [facility] Alanine Aminotransferase 22 0 - 30 unit/L [facility] Alkaline Phosphatase 102 35 - 105 unit/L [facility] Bilirubin, Total 0.4 0.2 - 1.3 mg/dL [facility] Est Glomerular Filtration Rate 68 >=60 mL/min/1. 73 m?? [facility] Comment: This patient? s estimated [...] Cordero MD CHEMISTRY ORDERABLES Performing Organization Address City/State/[facility] Co de Phone Number [facility] [place] [address] * Lactate Dehydrogenase (06/12/2020 2:00 PM EST) Lactate Dehydrogenase 198 110 - 220 unit/L [facility] Blood specimen (specimen) 06/12/2020 2:00 PM EST 06/12/2020 2:04 PM EST Narrative Resulting Agency Comment Spec In Lab Artuor Cordero MD CHEMISTRY ORDERABLES [facility] [place] [address] * TSH (06/12/2020 2:00 PM EST) Thyroid Stimulating Hormone 2.53 0.27 - 4.20 mcIU/mL [facility] Blood specimen (specimen) 06/12/2020 2:00 PM EST 06/12/2020 2:04 PM EST Narrative Resulting Agency Comment Spec In Lab Arturo Cordero MD CHEMISTRY ORDERABLES Performing Organization Address City/[facility]/ZIP Co de Phone Number [facility] [place] [address] * T4, free (06/12/2020 2:00 PM EST) Free T4 1.01 0.93 - 1.70 ng/dL [facility] Blood specimen (specimen) 06/12/2020 2:00 PM EST 06/12/2020 2:04 PM EST Narrative Resulting Agency Comment Spec In Lab Atruro Cordero MD CHEMISTRY ORDERABLES Performing Organization Address City/[facility]/ZIP Co de Phone Number [facility] [place] [address] documented in this encounter Visit Diagnoses Diagnosis Ocular melanoma, left documented in this encounter Care Teams Multi Operation Forming Machine Setter Relationship Specialty Start Date End Date Luis E Narayan MD [facility] [address]-[facility] [place] [phone] PCP - General Family Medicine 03/26/19 01/19/22 documented as of this encounter
--- OUTSIDE RECORDS SUMMARY | 2024-03-04 21:26 | XMS_ITS | Encounter Summary ---
Author Organization [facility] Address [facility] [place] [address] Care Team Providers Care Aerospace Control And Warning Systems Name Role Phone Luis E Narayan MD Primary Care Provider [phone]- [phone] Reason for Visit * Reason Onset Date Comments Medication Refill 07/26/2020 Encounter Details Date Type Department Care Team (Late Contact Info) Description 07/26/2020 Refill Family Medicine at [facility] [address] [place] [phone] Luis E Narayan MD [facility] DR [address] [place] [address] Type 2 diabetes mellitus without long-term current [...] TH Visit (TeleHealth) Sleep Center at [facility] [address] [place] [address] Denisse Hardwick, [facility] 03/20/2024 2:00 PM EDT Clinical Support Family Medicine at [facility] [address] [place] [address] Julia Low [facility] 05/01/2024 11:20 AM EDT Appointment Mammography/DXA at [place] [phone] Rodney Padilla MD [address] [place] [address] 05/01/2024 1:45 PM EDT Office Visit Ophthalmology at [address] Juanpablo Hernandez MD [facility] [place] [address] 01/30/2025 1:30 PM EDT Appointment Hematology and Oncology at [place] [phone] 01/30/2025 3:[address] Scan at [address] Arturo Cordero MD [facility] DR HEMATOLOGY [place] [address] 01/30/2025 4:15 PM EDT Office Visit Hematology and Oncology at [place] [phone] Arturo Cordero MD [facility] DR [place] [address] documented as of this encounter Visit Diagnoses Diagnosis Type 2 diabetes mellitus without long-term current use of insulin documented in this encounter Care Teams Aer[employer] Control [employer] Warning Systems Relationship Specialty Start Date End Date Luis E Narayan MD [facility] DR [address] [place] [address] PCP - General Family Medicine 03/26/19 01/19/22 documented as of this encounter
--- OUTSIDE RECORDS SUMMARY | 2024-03-04 21:26 | XMS_ITS | Encounter Summary ---
[place] [address] Care Team Providers Care Monitor Worker Name Role Phone Luis E Narayan MD Primary Care Provider Reason for Visit * Auth/Cert Specialty Diagnoses / Procedures Referred By Gonzalez kumari Referred To Contact Diagnoses Pigmented large conjunctival lesion Procedures PRO EXCIS CORNEA LESN EXCISION OF LESION, CORNEA, EXCEPT PTERYGIUM (WRVU 7.5) Referral ID Status Reason Start Date Expiration Date Visits Re quested Visits Authorized [id number] 1 1 Encounter Details Date Type Department Care Team (Late st Contact Info) Description 05/14/2020 12:02 PM EST Anesthesia Event [place] [address] Aki George DO [facility] [place] [address] Felipe Ceballos MD [facility] ANESTHESIOLOG[place] [address] Anesthesia Record Procedure Summary Procedure Name Responsible Anesthesiologist Anesthesia Start Time Anesthesia Stop Time EXCISION OF LESION, CORNEA, EXCEPT PTERYGIUM (WRVU 7.5) (Left: Eye) Aki George DO 05/14/20 1202 05/14/20 1312 Events Date Time Event Comment 05/14/2020 1141 1202 Start 1204 AN Verify 1204 An Start Data 1205 Anesthesia Ready 1243 Break/Relief In I assumed ca re for Break Relief before which we: 1. Identified the patient 2. Identified the responsible provider(s) 3. Reviewed the pertinent medical history 4. Discussed the surgical plan and course 5. Reviewed intra-op anesthesia management and issues during anesthesia 6. Set expectations for the relief (and/or post-procedure) period 7. Allowed opportunity for questions and acknowledgement of understanding Aki George DO 1312 an stop data 1312 Recovery or ICU Handoff Victorina ent care was transferred to the destination unit staff after review of the patient's medical history, current anesthetic/surgical status and plan, according to the Provider Handoff Checklist. 1312 Stop Meds Name Total Midazolam 2 mg fentaNYL 100 mcg Propofol INF 56.45 mg Dexmedetomidine 20 mcg Ondansetron 4 mg Dexamethasone 2 mg lactated ringers infusion 600 mL * Agents Name O2 Air N2O O2 Auxiliary Flowmeter 1 * Blood No blood administrations on file. Lines, Drains, and Airways Type Details Placement Removal Ileostomy 06/24/19; ileostomy 06/24/19 000 0 by Nelson Mejía RN Drain/Device Site 06/28/19; 1216; Left ; lower; abdomen; collapsible closed device; Sterile prep and drape; 19 caryn drain covered with drain sponge 06/28/19 1216 by Tameka Duncan RN Incision 06/28/19; 1035; abdo men; laparoscopic puncture; robotic trocar sites x 4 with 1 regular lap port closed with dermabond; 03/07/22 (LDA cleanup utility RA#[id number]); 1715 (LDA cleanup utility RA#[id number]) 06/28/19 1035 by Tameka Duncan RN 03/07/22 1715 by Leanne Mcdaniel (RETIRED) Peripheral IV Line - Single Lumen 05/14/20; 1124; median cubital vein (antecubital fossa), right; [id number] catheter system; 22 gauge; Daisha MCCOLLUM ; distraction, intradermal injection, tolerated well, appears comfortable, age-appropriate response; 05/14/20; 1325 05/14/20 1124 by Lashon Wick RN 05/14/20 1325 by Lashon Wick RN Incision 05/14/20; 1219; eye; 03/07/22 (LDA cleanup utility RA#[id number]); 1715 (LDA cleanup utility RA#[id number]) 05/14/20 1219 by Kalie Che RN 03/07/22 1715 by Leanne Mcdaniel documented in this encounter Social History Tobacco Use Types Packs/Day Years Used Date Smoking Tobacco: Every Day Cigarettes 1 40 Smokeless Tobacco: Never Alcohol Use Standard Drinks/Week Comments No 0 (1 standard drink = 0.6 oz pur e alcohol) Sex and Gender Information Value Date Recorded Sex Assigned at Not on file Gender Identity Not on file Sexual Orientation Not on file documented as of this encounter OR Notes * Anesthesia Postprocedure Evaluation - Aki George DO - 05/14/2020 5:08 PM EST Department of Anesthesiology Post-procedure Note Patient: Alize Gramajo Procedure Summary Date: 05/14/20 Room / Location: [facility] [place] OR [address] [place] [address] Anesthesia Start: 1202 Anesthesia Stop: 1312 Procedures: EXCISION OF LESION, CORNEA, EXCEPT PTERYGIUM (WRVU 7.5) (Left Eye) DESTRUCTION OF LESION OF CORNEA BY CRYOTHERAPHY (WRVU 3.47) (Left Eye) PLACEMENT OF AMNIOTIC MEMBRANE ON THE OCULAR SURFACE,SINGLE LAYER,SUTURED (WRVU 2.5) (Left ) Diagnosis: (Pigmented large conjunctival lesion) Surgeon: Juanpablo Hernandez MD Responsible Provider: kAi George DO Anesthesia Type: general ASA Status: 3 All Anesthesia Providers: Anesthesiologist: Aki George DO WHISKEY REGAUGER: Chantell Castellanos CRNA Vitals Value Taken Time BP 136/78 05/14/20 1320 Temp 36.3 ??C (97.3 ??F) 05/14/20 1316 Pulse 65 05/14/20 1321 Resp 18 05/14/20 1316 SpO2 94 % 05/14/20 1321 Pain Level 0 05/14/20 1316 Vitals shown include unvalidated device data. Patient Location: PACU/[facility] Level of Consciousness: Awake and Alert Pain Management: Satisfactory Analgesia PONV: None Cardiovascular Status: At Baseline and Hemodynamically Stable Respiratory Status: At Baseline and Room Air Postoperative Fluid Status: Intravascular EUvolemia Possible Anesthetic Complications: NONE apparent at time of evaluation Final Primary Anesthesia Type: MAC (The anesthetic type performed was the same as planned.) Comments: Aki George DO * Anesthesia Preprocedure Evaluation - Aki George DO - 05/14/2020 11:36 AM EST Images from the original note were not included. Pre-Anesthesia Evaluation for: Alize Gramajo a 59 y.o. female. Procedure(s): Pterygium excision OS Patient Active Problem List Diagnosis ??? OAB (overactive bladder) ??? Adrenal mass ??? Malignant neoplasm of kidney ??? Renal mass, left ??? Left atrial dilatation - severe ??? Left renal mass Also has +FHx renal cancer. ??? Iron deficiency ??? Hx of dysplasia of cervix, low grade (VALENTINO 1) 2018 Normal Pap, HPV Lead Relay Tester eConsult 2019: She should have pap/HPV cotest q 5 years until age >65 and if all normal over the past 10 y, she can exit from screening at that time. (Her remote history of CIN1 does not change either of these recs, because it has been adequately followed up with return to normal cytology/HPV neg ??? H/O heart artery stent x4 LCX ??? Diabetic polyneuropathy associated with type 2 diabetes mellitus ??? COPD ??? Bipolar affective disorder in remission Diagnosis in [facility], unconfirmed ??? Anxiety ??? Type 2 diabetes mellitus without long-term current use of insulin ??? TITO (obstructive sleep apnea) PSG 03/05/10 @ 271 lbs: AHI of 27, [facility] AHI of 16, min saturation of 61%, significant desaturations in REM Split night study 08/13/19 @235 lbs: AHI of 3, RDI of 7 but only observed side NREM pretreatment so the mild TITO noted on this study is likely an underestimation of sleep apnea severity. ??? Abnormal MRI of head 2019 MRI Scattered periventricular and subcortical white matter foci without restricted diffusion or enhancement. Findings are indeterminate with broad differential which includes small inactive demyelinating lesions, chronic small vessel ischemic changes from microangiopathy, hypertension or migraines, or even inflammation from vasculitides or other inflammatory/inflammatory processes. ??? Mixed hyperlipidemia ??? Essential hypertension ??? Recurrent major depressive disorder, in remission ??? Chronic bilateral low back pain without sciatica ??? Altered mental status Initial evaluation by Dr. Bert Kessler: Possible frontal lobe dysfunction Normal head CT Brain SPECT scan: No abnormalities EEG: Low-voltage EEG within normal limits Neuropsychological testing: Interpretation pending Normal B12, folate, TSH, etc. ??? 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 Past Medical History: Diagnosis Date ??? Allergy ??? Antiplatelet or antithrombotic long-term use aspirin, plavix ??? Arthritis ??? Asthma uses inhalerswith good effect ??? Atherosclerosis of benton coronary artery of benton heart with angina pectoris 10/09/2007 History of [...] Placed at ??? KNEE SURGERY ??? PRO LAP, PARTIAL NEPHRECTOMY Left 06/28/2019 LAPAROSCOPY, PARTIAL NEPHRECTOMY, ROBOTIC ASSIST (WRVU 27.41) performed by Avila Medina MD at [facility] MAIN OR Social History Tobacco Use ??? Smoking status: Current Every Day Smoker Packs/day: 1.00 Years: 40.00 Pack years: 40.00 Types: Cigarettes ??? Smokeless tobacco: Never Used Substance Use Topics ??? Alcohol use: No Social History Substance and Sexual Activity Drug Use No Allergies Allergen Reactions ??? Codeine Phosphate Nausea And Vomiting ??? Erythromycin Base Nausea Only ??? Azithromycin ??? Ibuprofen Stomach upset ??? Lisinopril cough ??? Nsaids (Non-Steroidal Anti-Inflammatory Drug) Nausea And Vomiting Medications: MAR and/or home medications have been reviewed. Physical Exam: No data found. There is no height or weight on file to calculate BMI. Airway Assessment: Mallampati: I TM distance: >3 FB Neck ROM: full Cardiovascular Assessment: Rhythm: regular Rate: normal Pulmonary Assessment: breath sounds clear to auscultation Dental Assessment: Misc Assessment: IV access: Peripheral line Anesthesia Plan: ASA 3 general, with a(n) intravenous induction Alize Gramajo is a 59 YO, 113 kg female for OS pterygium PMH significant for NIDDM c/b neuropathy (a1c 7.2), TITO on CPAP, depression/anxiety/bipolar, HLD, HTN, CAD s/p OK and 4 stents to LCx in 10/2007, ongoing smoker (40 PY), COPD with exacerbation last summer managed with prednisone taper, asthma, chronic back pain, GERD (omeprazole), and issues with balance/brain fog/speech difficulty with workup ongoing. Pt reports significant cognitive decrease after nephrectomy last year- speech and memory challenges. EKG: sinus w/ PACs. TTE 06/2019: LVEF 71%, no WMAs, severe LA dilation, no hemodynamically significant valve disease. Plan: MAC sedation. Discussed risks related to GA (Obesity, TITO, cardiac) Reviewed communication re: discomfort or pain. Described sedation for block. Region - Other Informed Consent: Anesthetic plan and risks discussed with patient. Plan discussed with attending and resident. [facility] Note documented in this encounter Plan of Treatment Upcoming Encounters Date Type Department Care Team (Late st Contact Info) Description 03/20/2024 9:00 AM EDT TH Visit (TeleHealth) Sleep Center at [facility] [address] [place] [phone] Denisse Hardwick, [facility] 03/20/2024 2:00 PM EDT Clinical Support Family Medicine [facility] [address] [place] [address] Julia Low, [facility] 05/01/2024 11:20 AM EDT Appointment Mammography/[place] [phone] Rodney Padilla MD [address] [place] [address] 05/01/2024 1:45 PM EDT Office [place] [address] Juanpablo Hernandez MD [facility] [place] [address] 01/30/2025 1:30 PM EDT Appointment Hematology [place] [address] 01/30/2025 3:[address] [place] [address] Arturo Cordero MD [facility] HEMATOLOGY [place] [address] 01/30/2025 4:15 PM EDT Office Visit Hematology [place] [address] Arturo Cordero MD [facility] DR HEMATOLOGY [place] [address] documented as of this encounter Visit Diagnoses Not on filedocumented in this encounter Administered Medications Inactive Administered Medications - up to 3 most recent administrations Medication Order MAR Action Action Date Dose Rate Site dexamethasone (Decadron) injection PRN, Starting on Carolee 05/14/20 at 1247, Until Carolee 05/14/20 at 1312, Anesthesia Intra-op, Routine Given 05/14/2020 12:47 PM EST 2 mg dexmedetomidine (PRECEDEX) injection PRN, Starting on Carolee 05/14/20 at 1203, Until Carolee 05/14/20 at 1312, Anesthesia Intra-op, Routine Given 05/14/2020 12:58 PM EST 4 mcg Given 05/14/2020 12:48 PM EST 4 mcg Given 05/14/2020 12:08 PM EST 8 mcg fentaNYL 50 mcg/mL multi-dose injection PRN, Starting on Carolee 05/14/20 at 1204, Until Carolee 05/14/20 at 1312, Anesthesia Intra-op, Routine Given 05/14/2020 12:29 PM EST 25 mcg Given 05/14/2020 12:18 PM EST 25 mcg Given 05/14/2020 12:15 PM EST 25 mcg lactated ringers infusion 1,000 mL, at 100 mL/hr, Intravenous, CONTINUOUS, Starting on Carolee 05/14/20 at 1115, Until Carolee 05/14/20 at 1331, Day of Surgery (Day of Procedure) New Bag 05/14/2020 11:54 AM EST midazolam (PF) (VERSED) multi-dose injection PRN, Starting on Carolee 05/14/20 at 1209, Until Carolee 05/14/20 at 1312, Anesthesia Intra-op, Routine Given 05/14/2020 12:29 PM EST 0.5 mg Given 05/14/2020 12:18 PM EST 0.5 mg Given 05/14/2020 12:15 PM EST 0.5 mg ondansetron (ZOFRAN) injection PRN, Starting on Carolee 05/14/20 at 1245, Until Carolee 05/14/20 at 1312, Anesthesia Intra-op, Routine Given 05/14/2020 12:45 PM EST 4 mg propofoL (Diprivan) infusion CONTINUOUS PRN, Starting on Carolee 05/14/20 at 1208, Until Carolee 05/14/20 at 1312, Anesthesia Intra-op, Routine Rate/Dose Change 05/14/2020 12:10 PM EST 50 mcg/kg/min 33.9 mL/hr New Bag 05/14/2020 12:08 PM EST 150 mcg/kg/min 101.6 mL /hr documented in this encounter Care Teams Monitor Worker Relationship Specialty Start Date End Date Luis E Narayan MD [facility] DR [facility] [facility] [address] PCP - General Family Medicine 03/26/19 01/19/22 documented as of this encounter
--- OUTSIDE RECORDS SUMMARY | 2024-03-04 21:26 | XMS_ITS | Encounter Summary ---
Author Organization [facility] [place] [address] Care Team Providers Care Bioengineer Name Role Phone Luis E Narayan MD Primary Care Provider [phone] Reason for Visit * Reason Onset Date Comments Medication Refill 05/25/2020 Encounter Details Date Type Department Care Team (Late st Contact Info) Description 05/25/2020 Refill Family Medicine [facility] [address] [place] [address] Bonny Emanuel MD [address] [place] [address] Essential hypertension Social History Tobacco Use Types [...] at [facility] [address] [place] [address] Denisse Hardwick, [facility] 03/20/2024 2:00 PM EDT Clinical Support Family Medicine at [address] [place] [address] Julia Low, [facility] 05/01/2024 11:20 AM EDT Appointment Mammography/DXA at [place] [phone] Rodney Padilla MD [address] [place] [address] 05/01/2024 1:45 PM EDT Office Visit Ophthalmology at [place] [address] Juanpablo Hernandez MD [facility] [place] [address] 01/30/2025 1:30 PM EDT Appointment Hematology and Oncology at [place] [address] 01/30/2025 3:[address] Scan at [address] Arturo Cordero MD [facility] DR HEMATOLOGY [place] [address] 01/30/2025 4:15 PM EDT Office Visit Hematology and Oncology at [place] [address] Arturo Cordero MD [facility] DR HEMATOLOGY [place] [address] documented as of this encounter Visit Diagnoses Diagnosis Essential hypertension Unspecified essential hypertension documented in this encounter Care Teams Bioengineer Relationship Specialty Start Date End Date Luis E Narayan MD [facility] DR [address] [facility] [address] PCP - General Family Medicine 03/26/19 01/19/22 documented as of this encounter
--- OUTSIDE RECORDS SUMMARY | 2024-03-04 21:26 | XMS_ITS | Encounter Summary ---
Author Organization [facility] Address [facility] [place] [place] [address] Care Team Providers Care Alley Worker Name Role Phone Luis E Narayan MD Primary Care Provider Reason for Visit * Reason Comments Follow-up Encounter Details Date Type Department Care Team (Late st Contact Info) Description 07/31/2020 3:15 PM EST Office [place] [address] Juanpablo Hernandez MD [facility] [place] [address] Malignant melanoma of conjunctiva, left Social History [...] * Patient Instructions* Juanpablo Hernandez MD - 07/31/2020 3:15 PM EST Medications: Use eye medications as [...] Progress Notes * Juanpablo Hernandez MD - 07/31/2020 3:15 PM EST Images from the original [...] positive margins, though free edge specimens negative Punctal plugs in place, no evidence of recurrence, Has telehealth appt with Dr. Gordon Will plan for topical MMC 0.04% four [...] workup and is supportive of topical treatment. Delay on drops due to insurance issues with drops. Tadeo Madera working on it with Alize 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 Mild cataract: 20/20 ou NIDDM with A1C of 6.9: no retinopathy seen Current smoker but denies orthopnea Plan: - as above - Follow up 4wk or as needed - Findings and concerns discussed with Alize and she expressed understanding. -Upon Return IOP MR if vision down by 2 lines compared to last visit documented in this encounter Plan of Treatment Upcoming Encounters Date Type Department Care Team (Late st Contact Info) Description 03/20/2024 9:00 AM EDT TH Visit (TeleHealth) Sleep Center at [facility] [address] [place] [phone] Denisse Hardwick, [facility] 03/20/2024 2:00 PM EDT Clinical Support Family Medicine at [facility] [address] [place] [phone] Julia Low, [facility] 05/01/2024 11:20 AM EDT Appointment Mammography/[place] [address] Rodney Padilla MD [address] [place] [address] 05/01/2024 1:45 PM EDT Office Visit Ophthalmology at [place] [phone] Juanpablo Hernandez MD [facility] [place] [address] 01/30/2025 1:30 PM EDT Appointment Hematology [place] [address] 01/30/2025 3:[address] Scan at [place] [phone] Arturo Cordero MD [facility] [place]AT[place] [address] 01/30/2025 4:15 PM EDT Office Visit Hematology [place] [phone] Arturo Cordero MD [facility] HEMATOLOGY AND ONCOLOGY [place], [place] [phone] documented as of this encounter Visit Diagnoses Diagnosis Malignant melanoma of conjunctiva, left documented in this encounter Care Teams Alley Worker Relationship Specialty Start Date End Date Luis E Narayan MD [facility] [place] [address] PCP - General Family Medicine 03/26/19 01/19/22 documented as of this encounter
--- OUTSIDE RECORDS SUMMARY | 2024-03-04 21:26 | XMS_ITS | Encounter Summary ---
Author Organization [facility] Address [facility] [place] [address] Care Team Providers Care Garage Manager Name Role Phone Luis E Narayan MD Primary Care Provider Reason for Visit * Reason Comments Medication Refill Encounter Details Date Type Department Care Team (Late Contact Info) Description 08/02/2020 Refill Family Medicine at [facility] [address] [place] [address] Luis E Narayan MD [facility] [address] [place] [address] Social History Tobacco Use Types Packs/Day Years [...] Center at [facility] [address] [place] [phone] Denisse Hardwick, [facility] 03/20/2024 2:00 PM EDT Clinical Support Family Medicine [facility] [address] [place] [address] Julia Low, [facility] 05/01/2024 11:20 AM EDT Appointment Mammography/DXA at [place] [phone] Rodney Padilla MD [address] [place] [address] 05/01/2024 1:45 PM EDT Office Visit Ophthalmology at [place] [address] Juanpablo Hernandez MD [facility] [place] [address] 01/30/2025 1:30 PM EDT Appointment Hematology and Oncology at [place] [address] 01/30/2025 3:[address] Scan at [place] [address] Arturo Cordero MD [facility] DR HEMATOLOGY [place] [address] 01/30/2025 4:15 PM EDT Office Visit Hematology and Oncology at [place] [address] Arturo Cordero MD [facility] DR HEMATOLOGY [place] [address] documented as of this encounter Visit Diagnoses Not on filedocumented in this encounter Care Teams Garage Manager Relationship Specialty Start Date End Date Luis E Narayan MD [facility] [place] [address] PCP - General Family Medicine 03/26/19 01/19/22 documented as of this encounter
--- OUTSIDE RECORDS SUMMARY | 2024-03-04 21:26 | XMS_ITS | Encounter Summary ---
[place] [address] Care Team Providers Care Refrigerating Technician Name Role Phone Luis E Narayan MD Primary Care Provider Reason for Visit * Reason Onset Date Comments Prior Authorization 06/29/2020 nicotine (NI COTROL) 10 mg Cartridge Encounter Details Date Type Department Care Team (Late st Contact Info) Description 06/29/2020 Telephone Family Medicine at [facility] [address] [place] [phone] Aida Aguayo CMA Prior Authorization (nicotine (NICOTROL) 10 mg Cartridge) Social History Tobacco Use Types Packs/Day Years [...] Telephone Encounter - Arlene Palomo CMA - 06/29/2020 2:53 PM EST Medication Prior Authorization for Primary [place] [address] DENIED: Nicotrol Case/Reference #: [id number] Additional Information from Insurance: The patient has had a documented treatment failure with BOTHgeneric nicotine patch and generic nicotine gum. No claims for either product can be found in member's profile. * Telephone Encounter - Aida Aguayo MA - 06/29/2020 2:21 PM EST PA submitted. Awaiting response. * Telephone Encounter - Aida Aguayo MA - 06/29/2020 2:09 PM EST Medication Prior Authorization for Primary [place] [address] Request received via: CM Patient: Alize Gramajo Patient : 1960 Insurance Company: [place] Sent via: Flumes Anderson: [id number] Physician: Luis E Narayan MD Medication Requested: nicotine (NICOTROL) 10 mg Cartridge Frequency/Sig: Inhale 1 puff into the lungs as needed for Smoking cessation. Disp: 168 each Refills: 3 Currently taking: yes If yes, how lon06/18/2020 Diagnosis for this medication: Encounter for smoking cessation counseling ICD-10 code: Z71.6 Prior medications trialed in this patient: Medication: Nicoderm CQ Approx Dates: 06/2019 Outcome/Adverse Reactions: Inadequate response Additional Notes: documented in this encounter Plan of Treatment Upcoming Encounters Date Type Department Care Team (Late st Contact Info) Description 03/20/2024 9:00 AM EDT TH Visit (TeleHealth) Sleep Center at [facility] [address] [place] [phone] Denisse Hardwick, [facility] 03/20/2024 2:00 PM EDT Clinical Support Family Medicine at [facility] [address] [place] [address] Julia Low, [facility] 05/01/2024 11:20 AM EDT Appointment Mammography/[place] [phone] Rodney Padilla MD [address] [place] [address] 05/01/2024 1:45 PM EDT Office Visit Ophthalmology at [place] [phone] Juanpablo Hernandez MD [facility] [place] [address] 01/30/2025 1:30 PM EDT Appointment Hematology and Oncology at [place] [address] 01/30/2025 3:[address] Scan at [place] [phone] Arturo Cordero MD [facility] DR H[place] [address] 01/30/2025 4:15 PM EDT Office Visit Hematology and Oncology at [place] [phone] Arturo Cordero MD [facility] DR [place] [address] documented as of this encounter Visit Diagnoses Not on filedocumented in this encounter Care Teams Refrigerating Technician Relationship Specialty Start Date End Date Luis E Narayan MD [facility] [address] [place] [address] PCP - General Family Medicine 03/26/19 01/19/22 documented as of this encounter
--- OUTSIDE RECORDS SUMMARY | 2024-03-04 21:26 | XMS_ITS | Encounter Summary ---
[place] [address] Care Team Providers Care Olive Brine Tester Name Role Phone Luis E Narayan MD Primary Care Provider [phone] Reason for Visit * Reason Onset Date Comments Post Op Post Op 05/15/2020 Encounter Details Date Type Department Care Team (Late st Contact Info) Description 05/15/2020 1:30 PM EST Office [place] [address] Juanpablo Hernandez MD [facility] [place] [address] Conjunctival tumor Social History Tobacco Use Types [...] this encounter Patient Instructions * Patient Instructions* Christine Madera - 05/15/2020 1:30 PM EST Instruction following eye surgery Section of Ophthalmology [facility] 1) AVOID EYE INJURIES: Following eye surgery your eye is more susceptible to injuries. Therefore, special attention has gi given to preventing an accidental injury - Do not rub the operative eye - Wear eye protection at all times - glasses or a shield during the day - Shield at night for the first 7 days after surgery. - Do not engage in any activities that could result in a blow to the eye. - Do not engage in any heavy physical activities that cause you to strain. 2) AVOID EYE CONTAMINATION: Following eye surgery your eye is more susceptible to ocular infections. - Wash hands before touching the eye. - Do not swim or bathe in contaminated water such as a pond or hot tub. - Wash hands after any contamination such as working in the garden. 3) CALL THE EYE CLINIC WITH ANY WORSENING PAIN, REDNESS, NEW FLASHES NEW FLOATERS OR DECREASING VISION: There is always a doctor information security specialist at the eye clinic if you develop a problem as described above, especially in the first 14 days following surgery: 4) USE THE PRESCRIBED EYE DROPs AND BRING THEM TO YOUR FOLLOW UP APPOINTMENTS - Prednisolone acetate (Pred Forte) (pink or white cap) 1 drop operative eye 4 times a day (Shake before using) - Moxifloxacin (Vigamox) (parkinson cap) 1 drop operative eye 4 times a day (when you run out, it is OK to stop) - Tobradex oingment up to 4 times a day left eye as needed 5) DRIVING: PLEASE BE CAUTIOUS WITH RETURNING TO DRIVING YOU RECOVER FROM EYE SURGERY documented in this encounter Progress Notes * Juanpablo Hernandez MD - 05/15/2020 1:30 PM EST Images from the original note were not included. Encounter Diagnosis Name Primary? Conjunctival tumor Alize Gramajo is a 59 y.o. 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 No personal history of melanoma, but lots of other cancer in her family, current smoker POD1 -doing well. Precautions reviewed, PF and Moxi qid OS, shield eye all times, tdex as needed Possibility of melanoma discussed again Mild cataract: 20/20 ou NIDDM with A1C of 6.9: no retinopathy seen Current smoker but denies orthopnea Plan: - as above - Follow up 06/03 or as needed - Findings and concerns discussed with Alize and she expressed understanding. -Upon Return IOP MR if vision down by 2 lines compared to last visit documented in this encounter Plan of Treatment Upcoming Encounters Date Type Department Care Team (Late st Contact Info) Description 03/20/2024 9:00 AM EDT TH Visit (TeleHealth) Sleep Center at [facility] [address] [place] [phone] Denisse Hardwick, [facility] 03/20/2024 2:00 PM EDT Clinical Support Family Medicine [facility] [address] [place] [phone] Julia Low, [facility] 05/01/2024 11:20 AM EDT Appointment Mammography/[place] [phone] Rodney Padilla MD [address] [facility] [place], [place] [phone] 05/01/2024 1:45 PM EDT Office Visit Ophthalmology at [place] [phone] Juanpablo Hernandez MD [facility] [place] [address] 01/30/2025 1:30 PM EDT Appointment Hematology [place] [address] 01/30/2025 3:[address] [place] [phone] Arturo Cordero MD [facility] DR [place]EM[place] [address] 01/30/2025 4:15 PM EDT Office Visit Hematology [place] [address] Arturo Cordero MD [facility] [place] [address] documented as of this encounter Visit Diagnoses Diagnosis Conjunctival tumor Neoplasms of unspecified nature, other specified sites documented in this encounter Care Teams Olive Brine Tester Relationship Specialty Start Date End Date Luis E Narayan MD [facility] [address] [place] [address] PCP - General Family Medicine 03/26/19 01/19/22 documented as of this encounter
--- OUTSIDE RECORDS SUMMARY | 2024-03-04 21:26 | XMS_ITS | Encounter Summary ---
[place] [address] Care Team Providers Care Curb Hop Name Role Phone Luis E Narayan MD Primary Care Provider Reason for Visit * Auth/Cert Specialty Diagnoses / Procedures Referred By Gonzalez kumari Referred To Contact Diagnoses Pigmented large conjunctival lesion Procedures PRO EXCIS CORNEA LESN EXCISION OF LESION, CORNEA, EXCEPT PTERYGIUM (WRVU 7.5) Referral ID Status Reason Start Date Expiration Date Visits Re quested Visits Authorized [id number] 1 1 Encounter Details Date Type Department Care Team (Late st Contact Info) Description 05/14/2020 12:00 PM EST - 05/14/2020 12:55 PM EST Surgery [place] [address] Mert Hernandez MD [facility] [place] [address] EXCISION OF LESION, CORNEA, EXCEPT PTERYGIUM (WRVU 7.5) Social History Tobacco Use Types Packs/Day Years [...] Sign Reading Time Taken Comments Blood Pressure 151/81 05/14/2020 11:17 AM EST Pulse 66 05/14/2020 11:17 AM EST Temperature 36.4 ??C (97.5 ??F) 05/14/2020 11:[address] Respiratory Rate 20 05/14/2020 11:17 AM EST Oxygen Saturation 98% 05/14/2020 11:17 AM EST Inhaled Oxygen Concentration - - Weight 112.9 kg (249 lb) 05/14/2020 11:17 AM EST Height 161.3 cm (5' 3.5) 05/14/2020 11:17 AM ES T Body Mass Index 43.42 05/14/2020 11:17 AM EST documented in this encounter Discharge Instructions * Discharge Instructions* Lashon Wick RN - 05/14/2020 11:09 AM EST Instructions for the first day following eye surgery Mert Hernandez MD Section of ophthalmology [facility] [place] [place] [phone] - Keep your eye patched, shielded, clean and dry overnight. The patch will be removed during your follow up visit with Dr. Hernandez tomorrow. - The surgery center nurses should confirm time of your follow up appointment for tomorrow with . This appointment will be at the Eye Clinic in the main building at [facility] [place] [place]. - Mild discomfort is normal, but if you have any severe eye pain or bleeding call [phone] and ask to speak to the eye doctor wood preparation supervisor. - Call your Primary Care Doctor or the Emergency Room for any non eye related medical issues. - Your eye will be red tomorrow - this is normal. - You will go home with drops but you will not start them until after your visit with Dr. Hernandez tomorrow. Additional instructions about your eyedrops, care of the eye and timing of visual recovery will be provided at that appointment. You may have received medication before and/or during your procedure, which affect your judgement and reaction time therefore for the next 24 hours: You may be unsteady on your feet, be careful on stairs. Do not smoke if you are alone. Do not drink alcoholic beverages. Do not drive or operate any type of machinery. Do not make important legal decisions. documented in this encounter Medications at Time of Discharge Medication Sig Dispensed Refills Start Date End Date aspirin EC 81 mg Tablet, Delayed Release (E.C.) Take 81 mg by mouth daily. LORazepam (Ativan) 1 mg Tablet Take 1 [...] 11 04/20/2020 05/26/2021 metFORMIN (GLUCOPHAGE) 1,000 mg TabletIndications:Typ e 2 [...] 3 09/05/2019 09/14/2020 lamoTRIgine (LaMICtal) 100 mg TabletIndications:Bip olar affective disorder in remission Take 1 tablet by mouth daily. 90 tablet 3 08/05/2019 06/20/2023 lancets Misc Use for twice daily testing 100 each 11 08/05/2019 06/14/2021 blood sugar diagnostic strips Strip Use as instructed 100 each 12 08/05/2019 06/14/2021 Blood-Glucose Meter Misc Use twice daily 1 each 08/05/2019 06/14/2021 fluticasone propionate (FLONASE) 50 mcg/actuation Roy, Suspension 1 spray by Each Nare route [...] See Admin Instructions. 30 tablet 04/09/2019 07/05/2021 amLODIPine (NORVASC) 5 mg Tablet Take 1 tablet by mouth daily. 90 tablet 4 04/09/2019 05/25/2020 simvastatin (ZOCOR) 10 mg Tablet Take 1 tablet by mouth daily. 90 tablet 4 04/09/2019 06/22/2020 omeprazole 20 mg Tablet, Delayed Release (E.C.) Take 1 tablet by mouth daily. 90 tablet 3 04/09/2019 05/25/2020 traZODone (DESYREL) 100 mg Tablet Take 1 tablet by mouth nightly. 90 tablet 3 04/09/2019 06/25/2020 ALBUTEROL SULFATE (PROVENTIL HFA INHL) 07/14/2010 021 documented as of this encounter Progress Notes * Lashon Wick RN - 05/14/2020 1:30 PM EST Discharge instructions and medications reviewed with patient and daughter. All questions answered and written copy sent home with patient. Patient ambulated to car for discharge accompanied by [facility] staff member. Pt tolerating oral fluids and voided prior to discharge. * Lashon Wick RN - 05/14/2020 11:42 AM EST Discharge instructions reviewed with patient and daughter. Pt verbalized understanding of dischargeinstructions. * Judith Ashton RN - 05/13/2020 1:25 PM EST During this call the patient was questioned regarding travel outside of [place] states, fever, cough, SOB or other illness in the last 14 days. Patient also questioned regarding any exposure to aCOVID positive person, a person awaiting results from testing or a person in quarantine.Patient denies any positive responses to the above questions for themselves or their escort for the day of procedure. Patient informed of procedure to be followed upon arrival to the [facility]. That being, COVID questions will be asked again, temperature will be taken, patient and caregiver/driver's license examiner will be given a mask to wear the entire time they are in the [facility] building. * Grecia Lamb RN - 05/11/2020 9:20 AM EST During this call the patient was questioned regarding travel outside of [facility], fever, cough, SOB or other illness in the last 14 days. Patient also questioned regarding any exposure to aCOVID positive person, a person awaiting results from testing or a person in quarantine.Patient denies any positive responses to the above questions for themselves or their escort for the day of procedure. Patient informed of procedure to be followed upon arrival to the [facility]. That being, COVID questions will be asked again, temperature will be taken, patient and caregiver/driver's license examiner will be given a mask to wear the entire time they are in the [facility] building. documented in this encounter H&P Notes * Mert Hernandez MD - 05/14/2020 11:35 AM EST Seen in pre-operative area. Alize Gramajo reports that she is in her usual state of health and hashad no new problems with her eyes or general health since her pre op physical examination and she feels fit for surgery today. Alize was in no distress; specifically no respiratory distress. her eyes were non inflamed. Operative, refractive, code status and post op plans reviewed. 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 Sedation plan: Moderate sedation with anesthesia and full code for eye surgery documented in this encounter Miscellaneous Notes * Op Note - Mert Hernandez MD - 05/14/2020 1:14 PM EST [facility] [place] [place] Operative Note Patient Name: Alize Gramajo : [id number] MR#: [id number] Case Date: 05/14/2020 Surgeon: Surgeon(s) and Role: * Mert Hernandez MD - Primary Preoperative diagnosis: Pigmented large conjunctival lesion Postoperative diagnosis: Pigmented large conjunctival lesion Procedure(s) (LRB): EXCISION OF LESION, CORNEA, EXCEPT PTERYGIUM (WRVU 7.5) (Left) DESTRUCTION OF LESION OF CORNEA BY CRYOTHERAPHY (WRVU 3.47) (Left) PLACEMENT OF AMNIOTIC MEMBRANE ON THE OCULAR SURFACE,SINGLE LAYER,SUTURED (WRVU 2.5) (Left) Anesthesia: MAC Estimated Blood Loss: 2 mL Surgical Staff/Assistants: Mert Hernandez M.D. ([id number]) * Preoperative Diagnosis: Limbal conjunctival tumor, left eye. Postoperative Diagnosis: Same. Procedures: 1. Excision of limbal tumor. 2. Cryotherapy. 3. Conjunctival repair using amniotic membrane and fribin glue. Anesthesia: MAC with local. Complications: None. Specimen: Tumor to pathology. Superior, inferior, temporal conj strips as well. Estimated blood loss: Minimal ( less than 1ml) Brief History: Large pigmented lesion of the limbus extending posterior towards the lateral canthus Procedure: Alize Gramajo was seen in the Preoperative Area and operative eye was marked. The procedure was reviewed with the Alize, and they was taken to the Operating Room and placed on the operating table in a supine position. After mild sedation had been given,a drop of alcaine and then 5% betadine was placed in the operative eye x 2 beginning 10 minutes prior to the surgerical incision. Alize was prepared and draped in the usual sterile ophthalmic manner. A corneal cover was placed over the cornea. A 4-mm cuff of normal tissue was marked around the conjunctival lesion using the fine-tip marking pen. Then subconjunctival lidocaine with epinephrine was used to undermine the tumor and provide local analgesia. Dehydrated alcohol was used to treat the surface of the tumor and a 4-mm cuff adjacent to the tumoron the cornea. Care was taken to avoid spreading the alcohol to other areas, and after it had been placed on the eye, the eye was thoroughly irrigated. The Tooke knife was used to remove the corneal epithelium adjacent to the tumor and this was disposed of. The conjunctiva was entered at the 4-mm cuff using the Calista scissor, and blunt and sharp dissection techniques were used to remove the tumor from the surface of the eye with a 2-mm skirt ofconjunctiva. There were no adhesions or firm attachments to the sclera but there was at the limbus, and the tumor was removed in one piece. The lesion extended from about 1 to 630 and extended back to the lateral canthus. There was a thickened area at the limbus. Hemostasis was obtained with the eraser-tip cautery and cautery was applied to the entire area underlying the tumor.Additional superior, inferior, and temporal strips were obtain to check margins. Double freeze-thaw was applied to the free conjunctival edge with care not to freeze the surface the surface of the globe or the extraocular muscles. The temperature was -5 degrees celsius. Throughout the procedure, a no-touch technique was employed. At the completion of the cryo, the gloves were changed and fresh instruments were obtained.The amniotic membrane donor [id number] from [employer] was applied to the scleral bed and secured with fibrin glue and tucked under the conj edge. This was used given the large size of conj defect. The conjunctiva was closed using interrupted 8-0 Vicryl sutures. Subconjunctival dexamethasone and cefazolin were given at the end of the case. The specimen was marked with a Vicryl suture in the temporal edge of the conjunctival skirt, and it was fixed in formalin and then taken to pathology whereit was grossed in with the pathologist. Alize tolerated the procedure well and the eye was patched over tobradex ointment. The case was reviewed with the patient in the Postoperative Area. They have instructions to follow up tomorrow in the Eye Clinic. I performed this procedure without the involvement of a resident. Attestation: Case Date: 05/14/2020 I performed this procedure without the involvement of a resident. MERT HERNANDEZ MD 05/14/2020 documented in this encounter Plan of Treatment Upcoming Encounters Date Type Department Care Team (Late st Contact Info) Description 03/20/2024 9:00 AM EDT TH Visit (TeleHealth) Sleep Center at [facility] [address] [place] [address] Denisse Hardwick, [facility] 03/20/2024 2:00 PM EDT Clinical Support Family Medicine at [facility] [address] [place] [phone] Julia Low, [facility] 05/01/2024 11:20 AM EDT Appointment Mammography/[place] [phone] Rodney Padilla MD [address] [place] [address] 05/01/2024 1:45 PM EDT Office Visit [place] [phone] Mert Hernandez MD [facility] [place] [address] 01/30/2025 1:30 PM EDT Appointment Hematology [place] [phone] 01/30/2025 3:[address] [place] [phone] Arturo Cordero MD [facility] DR HEMATOLOGY [place] [address] 01/30/2025 4:15 PM EDT Office Visit Hematology [place] [phone] Arturo Cordero MD [facility] DR HEMATOLOGY [place] [address] documented as of this encounter Procedures Procedure Name Priority Date/Time Associated Diagnosis Comments DESTRUCTION OF LESION OF CORNEA BY CRYOTHERAPHY Routine 05/14/2020 1:16 PM EST SPECIMEN TO PATHOLOGY Routine 05/14/2020 12:47 PM EST SPECIMEN TO PATHOLOGY Routine 05/14/2020 12:47 PM EST SPECIMEN TO PATHOLOGY Routine 05/14/2020 12:47 PM EST SPECIMEN TO PATHOLOGY Routine 05/14/2020 12:47 PM EST SOLID TUMOR NGS PANEL Routine 05/14/2020 12:40 PM EST SURGICAL PATHOLOGY REPORT Routine 05/14/2020 12:[address] Amniotic Membrane Ocular Surface;Single Layer Sutured ([id number]) 05/14/2020 12:04 PM EST Pigmented large conjunctival lesion Destr Corneal Lesn, Cryo, Photo, Therm ([id number]) 05/14/2020 12:04 PM EST Pigmented large conjunctival lesion Excis Cornea Lesn ([id number]) 05/14/2020 12:04 PM EST Pigmented large conjunctival lesion EXCISION OF LESION, CORNEA, EXCEPT PTERYGIUM Routine 05/14/2020 10:58 AM EST documented in this encounter Results * Specimen to Pathology (05/14/2020 12:47 PM EST) AP Specimen 05/14/2020 12:4 7 PM EST 05/14/2020 12:47 PM EST Narrative [facility] - 05/14/2020 12:47 PM EST Specimen requisition ordered. ??Separate Pathology report to follow Mert Hernandez MD PATHOLOGY/CYTOLOGY O RDERACELY [facility] [place] [address] * Specimen to Pathology (05/14/2020 12:47 PM EST) AP Specimen 05/14/2020 12:4 7 PM EST 05/14/2020 12:47 PM EST Narrative [facility] - 05/14/2020 12:47 PM EST Specimen requisition ordered. ??Separate Pathology report to follow Mert Hernandez MD PATHOLOGY/CYTOLOGY O RDERACELY [facility] [place] [address] * Specimen to Pathology (05/14/2020 12:47 PM EST) AP Specimen 05/14/2020 12:4 7 PM EST 05/14/2020 12:47 PM EST Narrative [facility] - 05/14/2020 12:47 PM EST Specimen requisition ordered. ??Separate Pathology report to follow Mert Hernandez MD PATHOLOGY/CYTOLOGY O ULISES Performing Organization Address [facility] de Phone Number [facility] [place] [address] * Specimen to Pathology (05/14/2020 12:47 PM EST) AP Specimen 05/14/2020 12:4 7 PM EST 05/14/2020 12:47 PM EST Narrative [facility] - 05/14/2020 12:47 PM EST Specimen requisition ordered. ??Separate Pathology report to follow Mert Hernandez MD PATHOLOGY/CYTOLOGY Junior [facility] Performing Organization Address [facility] de Phone Number [facility] [place] [address] * Solid Tumor NGS Panel (05/14/2020 12:40 PM EST) Tissue specimen (specimen) 05/14/2020 12:40 PM EST 06/01/2020 11:57 AM EST Narrative Resulting Agency Comment Spec In Lab Mert Hernandez MD PATHOLOGY/CYTOLOGY Junior [facility] Performing Organization Address [facility] de Phone Number [facility] [place] [address] * Surgical Pathology Report (05/14/2020 12:40 PM EST) Final Diagnosis [id number] ? Location: [facility] The signing pathologist has (i) examined the relevant preparation(s) for the specimen(s) and (ii) rendered or confirmed the diagnosis(es). . ?Surgical Pathology DIAGNOSIS A - Conjunctiva, left eye, excision: - Malignant melanoma, depth of invasion 0.6 mm (see Discussion) B - Conjunctiva, left eye superior strip, excision: - Negative for ??melanoma (see Discussion) C - Conjunctiva, left eye inferior strip, excision: - Negative for ??melanoma D - Conjunctiva, left eye temporal strip, excision: - Negative for ??melanoma Electronically signed by: ??Vladislav COLVIN, PhD, Allen Verified: ??05/20/2020 ?Dermatopathologist Performed at: ??-[facility] [place] [place] Dept. of Pathology, [place], [place] DISCUSSION A( Left eye, conjunctiva excision) ??- There is ??attenuated conjunctiva with partial epithelial consumption, however it does not meet the diagnostic criteria for ulceration. Tumor depth is 0.6 mm. Melanoma cells are present in the subepithelial stroma, extending to the deep margin. Mitosis is 1 per mm2. Perineural invasion, lymphovascular invasion, or regression are not identified. Tumor ? inflammatory infiltrate is brisk. Melanoma cells are positive for PRAME immunostain. Invasive melanoma is present at the corneal tip margin and the deep margin. ? Melanoma in situ involves the superior, inferior and temporal peripheral specimen margins of specimen A. B ( Conjunctiva, left eye superior strip) and D ??(Conjunctiva, left eye temporal strip)- Only a small amount of conjunctival epithelium is present in the biopsy specimens B and D despite ??multiple deeper levels examined. Focal junctional melanocytes are highlighted by MelanA immunostains but PRAME immunopositivity is not seen. Case findings have been discussed with Dr. Mert Hernandez. ADDITIONAL STUDIES Immunohistochemistry Studies: Formalin-fixed, paraffin-embedded tissue sections are studied using the polymer technique with appropriate positive and negative controls. ?These IHC studies provide the pathologist with adjunctive diagnostic information. Antibody specificity has been verified by testing antibodies on a series of in-house tissues with known immunohistochemical performance characteristics. The clinical interpretation of any antibody positive staining or its absence is evaluated within the context of clinical presentation, morphology, histopathological criteria and other diagnostic tests. Block ? Antibody ? Result (Positive/Negative) A1-3,5-7,9,10 ?Melan-A ? Highlights ?melanocytes B1,C1,D1 ? Melan-A ? Highlights ?melanocytes A1 ?PRAME ? Positive B1,C1,D1 ?PRAME ? Negative . SPECIMEN(S) SUBMITTED A - LEFT eye Temporal Limbal Pigmented Conjunctival Tumor, excision (1) B - Conjunctival Left eye superior strip, excision (1) C - Conjunctival Left eye Inferior strip, excision (1) D - Conjunctival Left eye Temporal strip, excision (1) CLINICAL INFORMATION Pigmented large conjunctival lesion (per Dr. Hernandez concern for melanoma) SPECIMEN PROCESSING A - Labeled/Fixative: Left eye temporal limbal pigmented conjunctival tumor; suture marking temporal edge, formalin. Quantity/Size: ??Single, 1.5 cm (conjunctival to temporal) by 0.9 cm (superior to inferior) by 0.1 cm (superficial to deep). Tissue Description: Roughly rectangular excision of red-parkinson partially translucent membranous tissue with an ill-defined patch of brown-red discoloration occupying the majority of the specimen Inking: The conjunctival margin is inked yellow, the temporal margin is inked orange, the inferior margin is marked black, and superior is marked blue. Sections/Processing: Serially sectioned and entirely submitted in 10 cassettes as follows: ?A1-A4: ??Perpendicular conjunctival margin serially sectioned from superior to ? inferior, yellow ink true tip margin ?A5-A6: ??Conjunctival half of specimen ?A7-A8: ??Temporal half of specimen ?A9-A10: ??Perpendicular temporal margin, bisected, superior to inferior, orange ink ? true tip margin B - Labeled/Fixative: Conjunctival left eye superior strip, formalin. Quantity/Size: ??Single, 0.8 x 0.3 x 0.1 cm. Tissue Description: Strip of red-parkinson membranous tissue. Sections/Processing: Inked and submitted intact ??in 1 cassette labeled B1. C - Labeled/Fixative: Conjunctival left eye inferior strip, formalin. Quantity/Size: ??Single, 0.5 x 0.1 x 0.1 cm. Tissue Description: Strip of red-parkinson membranous tissue. Sections/Processing: Inked and submitted intact ??in 1 cassette labeled C1. D - Labeled/Fixative: Conjunctival left eye temporal strip, formalin. Quantity/Size: ??Single, 0.3 x 0.2 x 0.1 cm. Tissue Description: Strip of red-parkinson membranous tissue. Sections/Processing: Inked, bisected and entirely submitted in 1 cassette labeled D1. ??mayra 05/20/2020 3:13 PM EST [facility] SPECIMEN FROM SKIN / Unknown 05/14/2020 12:40 PM EST 05/14/2020 12:40 PM EST SPECIMEN FROM SKIN / Unknown 05/14/2020 12:40 PM EST 05/14/2020 12:40 PM EST SPECIMEN FROM SKIN / Unknown 05/14/2020 12:40 PM EST 05/14/2020 12:40 PM EST SPECIMEN FROM SKIN / Unknown 05/14/2020 12:40 PM EST 05/14/2020 12:40 PM EST Mert Hernandez MD PATHOLOGY/CYTOLOGY O ULISES [facility] [place] [address] documented in this encounter Visit Diagnoses Not on filedocumented in this encounter Administered Medications Inactive Administered Medications - up to 3 most recent administrations Medication Order MAR Action Action Date Dose Rate Site balanced salt (BSS) irrigation solution ONCE PRN, Starting on Carolee 05/14/20 at 1214, Until Carolee 05/14/20 at 1534, Intra-Operative (Intra-Procedure), Routine Given 05/14/2020 12:14 PM EST 2 Bottles 19- Surgical Site BUpivacaine (PF) (MARCAINE) 0.75 % (7.5 mg/mL) injection ONCE PRN, Starting on Carolee 05/14/20 at 1216, Until Carolee 05/14/20 at 1534, Intra-Operative (Intra-Procedure), Routine Given 05/14/2020 12:16 PM EST 1 mL 19- Surgical Site ceFAZolin (Ancef) injection ONCE PRN, Starting on Carolee 11 at 1308, Until Carolee 05/14/20 at 1534, Intra-Operative (Intra-Procedure), Routine Given 05/14/2020 1:08 PM EST 100 mg 19- Surgical Site dexamethasone (Decadron) injection ONCE PRN, Starting on Carolee 11 at 1309, Until Carolee 05/14/20 at 1534, Intra-Operative (Intra-Procedure), Routine Given 05/14/2020 1:09 PM EST 2 mg 19- Surgical Site lactated ringers infusion 1,000 mL, at 100 mL/hr, Intravenous, CONTINUOUS, Starting on Carolee 05/14/20 at 1115, Until Carolee 05/14/20 at 1331, Day of Surgery (Day of Procedure) New Bag 05/14/2020 11:24 AM EST 1,000 mLs 100 mL/hr lidocaine-EPINEPHrin e 2 %-1:200,000 injection ONCE PRN, Starting on Carolee 05/14/20 at 1216, Until Carolee 05/14/20 at 1534, Intra-Operative (Intra-Procedure), Routine Given 05/14/2020 12:16 PM EST 1 mL 19- Surgical Site moxifloxacin (VIGAMOX) 0.5 % ophthalmic solution 1 drop 1 drop, Left Eye, EVERY 5 MIN, 3 doses, First dose on Carolee 11 at 1115, Last dose on Carolee 05/14/20 at 1125, 1 drop to the operative eye every 5 minutes times 3. Start on the day of surgery. , Day of Surgery (Day of Procedure), Routine Given 05/14/2020 11:35 AM EST 1 drop Given 05/14/2020 11:27 AM EST 1 drop Given 05/14/2020 11:23 AM EST 1 drop prednisoLONE acetate (PRED FORTE) 1 % ophthalmic suspension 1 drop 1 drop, Left Eye, ONCE, 1 dose, On Carolee 05/14/20 at 1115, 1 drop to the operative eye once, start on day of surgery, Day of Surgery (Day of Procedure), Routine Given 05/14/2020 11:23 AM EST 1 drop documented in this encounter Active and Recently Administered Medications Times are shown in EST. Scheduled Medication Order 05/12/2020 05/13/2020 05/14/2020 moxifloxacin (VIGAMOX) 0.5 % ophthalmic solution 1 drop (COMPLETED) 1 drop, Left Eye, EVERY 5 MIN, 3 doses, First dose on Carolee 1120 at 1115, Last dose on Carolee 05/14/20 at 1125, 1 drop to the operative eye every 5 minutes times 3. Start on the day of surgery. , Day of Surgery (Day of Procedure), Routine 1123 (Given - Provid er: Lashon Wick RN)1127 (Given - Provider: Lashon Wick RN)1135 (Given - Provider: Lashon Wick RN) prednisoLONE acetate (PRED FORTE) 1 % ophthalmic suspension 1 drop (COMPLETED) 1 drop, Left Eye, ONCE, 1 dose, On Carolee 05/14/20 at 1115, 1 drop to the operative eye once, start on day of surgery, Day of Surgery (Day of Procedure), Routine 1123 (Given - Provid er: Lashon Wick RN) Continuous Medication Order 05/12/2020 05/13/2020 05/14/2020 lactated ringers infusion (CANCELED) 1,000 mL, at 100 mL/hr, Intravenous, CONTINUOUS, Starting on Carolee 11 at 1115, Until Carolee 11 at 1331, Day of Surgery (Day of Procedure) 1154 (New Bag - Prov ider: Chantell Castellanos CRNA)1241 (Anesthesia Volume Adjustment - Provider: Chantell Castellanos CRNA) lactated ringers infusion (CANCELED) 1,000 mL, at 100 mL/hr, Intravenous, CONTINUOUS, Starting on Carolee 11 at 1115, Until Carolee 11 at 1331, Day of Surgery (Day of Procedure) 1124 (New Bag - Prov ider: Lashon Wick RN) PRN Medication Order 05/12/2020 05/13/2020 05/14/2020 balanced salt (BSS) irrigation solution (CANCELED) ONCE PRN, Starting on Carolee 05/14/20 at 1214, Until Carolee 05/14/20 at 1534, Intra-Operative (Intra-Procedure), Routine 1214 (Given - Provid er: Mert Hernandez MD - Comment: on surgical field for use as needed) BUpivacaine (PF) (MARCAINE) 0.75 % (7.5 mg/mL) injection (CANCELED) ONCE PRN, Starting on Carolee 1120 at 1216, Until Carolee 11 at 1534, Intra-Operative (Intra-Procedure), Routine 1216 (Given - Provid er: Mert Hernandez MD - Comment: 0.75% Lidocaine plain mixed 1:1 with 2% Lidocaine with epi 1:200,000. 2 ml total mixture given at this time) ceFAZolin (Ancef) injection (CANCELED) ONCE PRN, Starting on Carolee 1120 at 1308, Until Carolee 11 at 1534, Intra-Operative (Intra-Procedure), Routine 1308 (Given - Provid er: Mert Hernandez MD) dexamethasone (Decadron) injection (CANCELED) ONCE PRN, Starting on Carolee 1120 at 1309, Until Carolee 11 at 1534, Intra-Operative (Intra-Procedure), Routine 1309 (Given - Provid er: Mert Hernandez MD) lidocaine-EPINEPHrine 2 %-1:200,000 injection (CANCELED) ONCE PRN, Starting on Carolee 11 at 1216, Until Carolee 11 at 1534, Intra-Operative (Intra-Procedure), Routine 1216 (Given - Provid er: Mert Hernandez MD - Comment: 0.75% Lidocaine plain mixed 1:1 with 2% Lidocaine with epi 1:200,000. 2 ml total mixture given at this time) documented in this encounter Care Teams Curb Hop Relationship Specialty Start Date End Date Luis E Narayan MD [facility] [place] [address] PCP - General Family Medicine 03/26/19 01/19/22 documented as of this encounter
--- OUTSIDE RECORDS SUMMARY | 2024-03-04 21:26 | XMS_ITS | Encounter Summary ---
[place] [address] Care Team Providers Care Controller Mechanic Name Role Phone Luis E Narayan MD Primary Care Provider Encounter Details Date Type Department Care Team (Latest Contact Info) Description 06/16/2020 10:30 AM EST Clinical Support [place]emat[place] [address] Malika Ye Cigarette nicotine dependence without complication [...] encounter Progress Notes * Malika Ye - 06/16/2020 10:30 AM EST .. Tobacco Smartform How much (current or past use): Combustible (Comment: 1ppd) Combustible Type: (Comment: cigarettes) Quit Attempts: 1-10 Tobacco free with last quit attempt?: No Interest in quitting: Interested and ready to quit Counseling Offered?: Yes Behavior Modification Discussed: Deep Breathing, asking for help, positive thoughts, exercise, distraction Pharmacotherapy: OTC OTC Nicotine Replacement Therapy: Patch, Lozenge (Comment: sent request to primary for Nicotine inhaler) Expected Quit Date: 09/28/19 Given [facility] Tobacco Resource Packet?: Yes Eligible for Lung Cancer Screening?: No Follow up with: [facility] Smoking Cessation Program ..Thoracic Surgery - Tobacco Cessation Consultation [facility] [place] ([place]) [place], [place] [address] FAX: HPI: Alize Gramajo is a 59 y.o. female who is being seen today for tobacco cessation. Type of tobacco used: () Smokeless tobacco () e-cigarette (X)Cigarettes Brand currently smoking: Fonda Gold Current amount: 1 ppd Cost per pack: 8.00 Age initiated: 12 yrs Years smoked: 47 Most/least smoked: 1 ppd Previous quit attempts and methods: patches, cold turkey Most recent quit attempt: ?? Are there other smokers in the home: yes Are there children in the home: no What will be different this time: wants to improve survivorship Positive aspects of smoking: soothing, comforting, been there always Negative aspects of smoking: People don't want her to smoke, health effects. Reasons for quitting: Doesn't want the risk of more health problems. Concerns about quitting: lacks confidence. Concerns about weight gain:did not ask Triggers for smoking: smokey garage, stress, boredom Ready to set a quit date: not ready to set a quit date, but wants to do it gradually. Readiness: Importance scale: 10 Confidence scale: 3 Support systems include: daughterKeon He/She denies f/c/n/v/SOB/CP. CO Monitor Reading First Visit 24 Subsequent visit Alize Gramajo is a 59 y.o. female seen today for smoking cessation counseling. She is currently smoking Fonda Golds and does kind of wish to quit at this time. I reviewed the physiology of addiction as well as apparent health risks specific for him/her. I discussed the options for treatment including NRT, Zyban and Chantix. I reviewed possible side effects of therapy. I stressed that medication alone is not optimum but used in conjunction with behavioral counseling will add to success for cessation. Behavioral counseling in addition to pharmacotherapy recommendations were given. Behavioralcounseling includes deep breathing, drinking water,, asking for help, remaining positive, making pra ctice quits. The patient has opted for 21mg nicotine patch with 4 mg. Lozenge to start with the option of using the nicotine inhaler, Stage of Change: Precontemplation: Contemplation: Preparation: Action: Maintenance: NICOTINE DEPENDENCE 0 Points 1Points 2 Points 3 Points Score 1.How soon after waking do you smoke your first cigarette? After 60 minutes 31- 60 minutes minutes 6-30 minutes Within 5 minutes 3 2. Do you find it difficult to refrain from smoking in places where it is forbidden? (ex. congregation) No Yes 0 3. Which cigarette would you hate to [...] are in bed all day? 0 Classification: 7/High 0-2 Very low 3-4 Low 5 Moderate 6-7 High 8-10 Very high A Tobacco Treatment packet was given and reviewed with the patient which included the 4D's, and Tobacco Treatment brochure. 60 minutes were spent with this patient in counseling for tobacco cessation. Plan: Quit Date: 1. Lis contacted Alize's Primary Doctor to request an rx for inhaler be sent to [facility] [place]. 2. Discussed behavioral change including distraction, exercise, positive thinking, deep breathing, using anxiety medications if needed, asking for help 3. 30 minutes of exercise daily 4. Call with any questions or concerns 5. Follow up in one week Malkia Ye 06/16/20 Thoracic Surgery - Tobacco Cessation [facility] documented in this encounter Plan of Treatment Upcoming Encounters Date Type Department Care Team (Late st Contact Info) Description 03/20/2024 9:00 AM EDT TH Visit (TeleHealth) Sleep Center at [facility] [address] [place] [address] Denisse Hardwick, [facility] 03/20/2024 2:00 PM EDT Clinical Support Family Medicine at [facility] [address] [place] [address] Julia Low [facility] 05/01/2024 11:20 AM EDT Appointment Mammography/DXA at [place] [phone] Rodney Padilla MD [address] [place] [address] 05/01/2024 1:45 PM EDT Office Visit Ophthalmology at [address] Juanpablo Hernandez MD [facility] [place] [address] 01/30/2025 1:30 PM EDT Appointment Hematology and Oncology at [address] 01/30/2025 3:[address] Scan at [place] [address] Arturo Cordero MD [facility] [place] [address] 01/30/2025 4:15 PM EDT Office Visit Hematology [place] [address] Arturo Cordero MD [facility] [place] [address] documented as of this encounter Visit Diagnoses Diagnosis Cigarette nicotine dependence without complication Tobacco use disorder documented in this encounter Care Teams Controller Mechanic Relationship Specialty Start Date End Date Luis E Narayan MD [facility] [address] [place] [address] PCP - General Family Medicine 03/26/19 01/19/22 documented as of this encounter
--- OUTSIDE RECORDS SUMMARY | 2024-03-04 21:26 | XMS_ITS | Encounter Summary ---
Author Organization [facility] [place] [address] Care Team Providers Care Bull Chain Operator Name Role Phone Luis E Narayan MD Primary Care Provider [phone] Encounter Details Date Type Department Care Team (Late Contact Info) Description 08/07/2020 Telephone [place] [phone] Malika Ye Social History Tobacco Use Types [...] Visit (TeleHealth) Sleep Center at [facility] [address] [place] [phone] Denisse Hardwick, [facility] 03/20/2024 2:00 PM EDT Clinical Support Family Medicine at [facility] [address] [place] [phone] Julia Low, [facility] 05/01/2024 11:20 AM EDT Appointment Mammography/DXA at [place] [phone] Rodney Padilla MD [address] [place] [phone] 05/01/2024 1:45 PM EDT Office Visit Ophthalmology at [address] Juanpablo Hernandez MD [facility] [place] [address] 01/30/2025 1:30 PM EDT Appointment Hematology and Oncology at [place] [address] 01/30/2025 3:[address] [place] [address] Arturo Cordero MD [facility] DR HEMATOLOGY [place] [address] 01/30/2025 4:15 PM EDT Office Visit Hematology [place] [address] Arturo Cordero MD [facility] DR HEMATOLOGY [place] [address] documented as of this encounter Visit Diagnoses Not on filedocumented in this encounter Care Teams Bull Chain Operator Relationship Specialty Start Date End Date Luis E Narayan MD [facility] [place] [address] PCP - General Family Medicine 03/26/19 01/19/22 documented as of this encounter
--- OUTSIDE RECORDS SUMMARY | 2024-03-04 21:26 | XMS_ITS | Encounter Summary ---
[place] [address] Care Team Providers Care Electrical And Instrument Mechanic Name Role Phone Luis E Narayan MD Primary Care Provider Reason for Visit * Auth/Cert Specialty Diagnoses / Procedures Referred By Gonzalez kumari Referred To Contact Diagnoses Pigmented large conjunctival lesion Procedures PRO EXCIS CORNEA LESN EXCISION OF LESION, CORNEA, EXCEPT PTERYGIUM (WRVU 7.5) Referral ID Status Reason Start Date Expiration Date Visits Re quested Visits Authorized [id number] 1 1 Encounter Details Date Type Department Care Team (Latest Contact Info) Description 05/14/2020 10:53 AM EST - 05/14/2020 1:25 PM EST Hospital Encounter [place] [address] Mert Hernandez MD [facility] [place] [address] Discharge Disposition: Home Social History Tobacco Use [...] Sign Reading Time Taken Comments Blood Pressure 136/78 05/14/2020 1:20 PM EST Pulse 59 05/14/2020 1:20 PM EST Temperature 36.3 ??C (97.3 ??F) 05/14/2020 1:16 PM ES T Respiratory Rate 18 05/14/2020 1:16 PM EST Oxygen Saturation 95% 05/14/2020 1:20 PM EST Inhaled Oxygen Concentration - - [...] surgery Mert Hernandez MD Section of ophthalmology [facility] [phone] - Keep your eye patched, shielded, clean and dry overnight. The patch will be removed during your follow up visit with Dr. Hernandez tomorrow. - The surgery center nurses should confirm time of your follow up appointment for tomorrow with . This appointment will be at the Eye Clinic in the main building at [facility]. - Mild discomfort is normal, but if you have any severe eye pain or bleeding call [phone] and ask to speak to the eye doctor longwall machine operator helper. - Call your Primary Care Doctor or [...] 08/05/2019 06/14/2021 fluticasone propionate (FLONASE) 50 mcg/actuation [place], Suspension 1 spray by Each Nare [...] patient was questioned regarding travel outside of [place], fever, cough, SOB or other illness [...] again, temperature will be taken, patient and caregiver/delivery driver/supervisor will be given a mask to wear the entire time they are in the [facility] building. * Grecia Lamb RN - 05/11/2020 9:20 AM EST During this call the patient was questioned regarding travel outside of [facility], fever, cough, SOB or other illness in [...] again, temperature will be taken, patient and caregiver/delivery driver/supervisor will be given a mask to wear [...] Hernandez MD - 05/14/2020 1:14 PM EST [facility] Operative Note Patient Name: Alize Gramajo : [id number] MR#: [id number] Case Date: 05/14/2020 Surgeon: Surgeon(s) and Role: [...] 2 mL Surgical Staff/Assistants: Mert Hernandez M.D. ([id number]) * Preoperative Diagnosis: Limbal conjunctival tumor, left [...] fresh instruments were obtained.The amniotic membrane donor [id number] from [employer] was applied to the scleral bed and [...] EDT TH Visit (TeleHealth) Sleep Center at [place] [address] [place] [address] Denisse Hardwick, [facility] 03/20/2024 2:00 PM EDT Clinical Support Family Medicine at [facility] [address] [place] [phone] Julia Low, [facility] 05/01/2024 11:20 AM EDT Appointment Mammography/[place] [address] Rodney Padilla MD [address] [place] [place] [address] 05/01/2024 1:45 PM EDT Office Visit Ophthalmology at [place] [phone] Mert Hernandez MD [facility] [place] [address] 01/30/2025 1:30 PM EDT Appointment Hematology [place] [address] 01/30/2025 3:[address] Scan at [place] [phone] Arturo Cordero MD [facility] DR [place] [address] 01/30/2025 4:15 PM EDT Office Visit Hematology [place] [phone] Arturo Cordero MD [facility] DR [place] [address] documented as of this encounter Procedures Procedure [...] Place Amniotic Membrane Ocular Surface;Single Layer Sutured ([id number]) 05/14/2020 12:04 PM EST Pigmented large conjunctival lesion Destr Corneal Lesn, Cryo, Photo, Therm ([id number]) 05/14/2020 12:04 PM EST Pigmented large conjunctival lesion Excis Cornea Lesn ([id number]) 05/14/2020 12:04 PM EST Pigmented large conjunctival lesion EXCISION OF LESION, CORNEA, EXCEPT PTERYGIUM Routine 05/14/2020 10:58 AM EST documented in this encounter Results * Specimen to Pathology (05/14/2020 12:47 PM EST) AP Specimen 05/14/2020 12:4 7 PM EST 05/14/2020 12:47 PM EST Narrative [facility] - 05/14/2020 12:47 PM EST Specimen requisition ordered. ??Separate Pathology report to follow Mert Hernandez MD PATHOLOGY/CYTOLOGY O RDLESLEY [facility] [place] [address] * Specimen to Pathology (05/14/2020 12:47 PM EST) AP Specimen 05/14/2020 12:4 7 PM EST 05/14/2020 12:47 PM EST Narrative [facility] - 05/14/2020 12:47 PM EST Specimen requisition ordered. ??Separate Pathology report to follow Mert Hernandez MD PATHOLOGY/CYTOLOGY O RDERACELY [facility] [place] [address] * Specimen to Pathology (05/14/2020 12:47 PM EST) AP Specimen 05/14/2020 12:4 7 PM EST 05/14/2020 12:47 PM EST Narrative [facility] - 05/14/2020 12:47 PM EST Specimen requisition ordered. ??Separate Pathology report to follow Mert Hernandez MD PATHOLOGY/CYTOLOGY O ULISES Performing Organization Address [facility] [place] [address] * Specimen to Pathology (05/14/2020 12:47 PM EST) AP Specimen 05/14/2020 12:4 7 PM EST 05/14/2020 12:47 PM EST Narrative [facility] - 05/14/2020 12:47 PM EST Specimen requisition ordered. ??Separate Pathology report to follow Mert Hernandez MD PATHOLOGY/CYTOLOGY O ULISES Performing Organization Address [facility] de Phone Number [facility] [place] [address] * Solid Tumor NGS Panel (05/14/2020 12:40 PM EST) Tissue specimen (specimen) 05/14/2020 12:40 PM EST 06/01/2020 11:57 AM EST Narrative Resulting Agency Comment Spec In Lab Mert Hernandez MD PATHOLOGY/CYTOLOGY O ULISES Performing Organization Address [facility] de Phone Number [facility] [place] [address] * Surgical Pathology Report (05/14/2020 12:40 PM EST) Final Diagnosis [id number] ? Location: [facility] The signing pathologist has [...] PhD, Allen Verified: ??05/20/2020 ?Dermatopathologist Performed at: ??-[facility] Dept. of Pathology, [place], [place] DISCUSSION A( Left eye, conjunctiva excision) [...] labeled D1. ??mayra 05/20/2020 3:13 PM EST [facility] SPECIMEN FROM SKIN / Unknown 05/14/2020 12:40 PM EST 05/14/2020 12:40 PM EST SPECIMEN FROM SKIN / Unknown 05/14/2020 12:40 PM EST 05/14/2020 12:40 PM EST SPECIMEN FROM SKIN / Unknown 05/14/2020 12:40 PM EST 05/14/2020 12:40 PM EST SPECIMEN FROM SKIN / Unknown 05/14/2020 12:40 PM EST 05/14/2020 12:40 PM EST Mert Hernandez MD PATHOLOGY/CYTOLOGY O RDERABLES [facility] [place] [address] documented in this encounter Visit Diagnoses Not on filedocumented in this encounter Administered Medications Inactive Administered Medications - up to 3 most recent administrations Medication Order MAR Action Action Date Dose Rate Site lactated ringers infusion 1,000 mL, at 100 mL/hr, Intravenous, CONTINUOUS, Starting on Carolee 05/14/20 at 1115, Until Carolee 05/14/20 at 1331, Day of Surgery (Day of Procedure) New Bag 05/14/2020 11:24 AM EST 1,000 mLs 100 mL/hr moxifloxacin (VIGAMOX) 0.5 % ophthalmic solution 1 [...] Left Eye, ONCE, 1 dose, On Carolee 1120 at 1115, 1 drop to the operative [...] Left Eye, ONCE, 1 dose, On Carolee 11 at 1115, 1 drop to the operative eye once, start on day of surgery, Day of Surgery (Day of Procedure), Routine 1123 (Given - Provid er: Lashon Wick RN) Continuous Medication Order 05/12/2020 05/13/2020 05/14/2020 lactated ringers infusion (CANCELED) 1,000 mL, at 100 mL/hr, Intravenous, CONTINUOUS, Starting on Carolee 11 at 1115, Until Carolee 1120 at 1331, Day of Surgery (Day of Procedure) 1154 (New Bag - Prov ider: Chantell Castellanos CRNA)1241 (Anesthesia Volume Adjustment - Provider: Chantell Castellanos CRNA) lactated ringers infusion (CANCELED) 1,000 mL, at 100 mL/hr, Intravenous, CONTINUOUS, Starting on Carolee 05/14/20 at 1115, Until Carolee 05/14/20 at 1331, Day of Surgery (Day of Procedure) 1124 ([facility] ider: Lashon Wick RN) PRN Medication Order 05/12/2020 05/13/2020 05/14/2020 balanced salt (BSS) irrigation solution (CANCELED) ONCE PRN, Starting on Carolee 05/14/20 at 1214, Until Carolee 05/14/20 at 1534, Intra-Operative (Intra-Procedure), Routine 1214 (Given - Provid er: Mert Hernandez MD - Comment: on surgical field for use as needed) BUpivacaine (PF) (MARCAINE) 0.75 % (7.5 mg/mL) injection (CANCELED) ONCE PRN, Starting on Carolee 05/14/20 at 1216, Until Carolee 05/14/20 at 1534, Intra-Operative (Intra-Procedure), Routine 1216 (Given - Provid er: Mert Hernandez MD - Comment: 0.75% Lidocaine plain mixed 1:1 with 2% Lidocaine with epi 1:200,000. 2 ml total mixture given at this time) ceFAZolin (Ancef) injection (CANCELED) ONCE PRN, Starting on Carolee 05/14/20 at 1308, Until Carolee 05/14/20 at 1534, Intra-Operative (Intra-Procedure), Routine 1308 (Given - Provid er: Mert Hernandez MD) dexamethasone (Decadron) injection (CANCELED) ONCE PRN, Starting on Carolee 05/14/20 at 1309, Until Carolee 05/14/20 at 1534, Intra-Operative (Intra-Procedure), Routine 1309 (Given - Provid er: Mert Hernandez MD) lidocaine-EPINEPHrine 2 %-1:200,000 injection (CANCELED) ONCE PRN, Starting on Carolee 05/14/20 at 1216, Until Carolee 05/14/20 at 1534, Intra-Operative (Intra-Procedure), Routine 1216 (Given - Provid er: Mert Hernandez MD - Comment: 0.75% Lidocaine plain mixed 1:1 with 2% Lidocaine with epi 1:200,000. 2 ml total mixture given at this time) documented in this encounter Care Teams Electrical And Instrument Mechanic Relationship Specialty Start Date End Date Luis E Narayan MD [facility] [place] [address] PCP - General Family Medicine 03/26/19 01/19/22 documented as of this encounter
--- OUTSIDE RECORDS SUMMARY | 2024-03-04 21:27 | XMS_ITS | Encounter Summary ---
Author Organization [facility] [place] [address] Care Team Providers Care Literacy Coach Name Role Phone Luis E Narayan MD Primary Care Provider [phone]- [phone] Reason for Visit * Reason Onset Date Comments Appointment 12/03/2019 Encounter Details Date Type Department Care Team (Late st Contact Info) Description 12/03/2019 Telephone Family Medicine at [facility] [address] [place] [address] Idalmis Bang Appointment Social History Tobacco Use Types Packs/Day [...] encounter Miscellaneous Notes * Telephone Encounter - Idalmis Bang - 12/03/2019 5:08 PM EDT LM to reschedule pt's bumped 09/26/[address] Narayan. documented in this encounter Plan of Treatment Upcoming Encounters Date Type Department Care Team (Late st Contact Info) Description 03/20/2024 9:00 AM EDT TH Visit (TeleHealth) Sleep Center at [facility] [address] [place] [address] Denisse Hardwick, [facility] 03/20/2024 2:00 PM EDT Clinical Support Family Medicine at [facility] [address] [place] [phone] Julia Low [facility] 05/01/2024 11:20 AM EDT Appointment Mammography/[place] [address] Rodney Padilla MD [address] [place] [address] 05/01/2024 1:45 PM EDT Office Visit Ophthalmology at [place] [phone] Juanpablo Hernandez MD [facility] [place] [address] 01/30/2025 1:30 PM EDT Appointment Hematology [place] [address] 01/30/2025 3:[address] Scan at [place] [phone] Arturo Cordero MD [facility] [place] [address] 01/30/2025 4:15 PM EDT Office Visit Hematology and Oncology at [place] [phone] Arturo Cordero MD [facility] [place] [address] documented as of this encounter Visit Diagnoses Not on filedocumented in this encounter Care Teams Literacy Coach Relationship Specialty Start Date End Date Luis E Narayan MD [facility] [address] [place] [address] PCP - General Family Medicine 03/26/19 01/19/22 documented as of this encounter
--- OUTSIDE RECORDS SUMMARY | 2024-03-04 21:27 | XMS_ITS | Encounter Summary ---
Author Organization [facility] Address [facility] [place] [address] Care Team Providers Care Contract Manager Name Role Phone Luis E Narayan MD Primary Care Provider [phone] Reason for Visit * Reason Onset Date Comments Medication Refill 01/27/2020 Encounter Details Date Type Department Care Team (Late st Contact Info) Description 01/27/2020 Refill Family Medicine at [facility] [address] [place] [address] Luis E Narayan MD [facility] [address] [facility] [address] Type 2 diabetes mellitus without long-term current [...] encounter Miscellaneous Notes * Telephone Encounter - Ally Mcgarry, [facility] - 01/27/2020 3:32 PM EDT Prescription Refill Request Prescription(s) Requested: Requested Prescriptions Pending Prescriptions Disp Refills ??? metFORMIN (GLUCOPHAGE) 1,000 mg Tablet 180 tablet 1 Sig: Take 1 tablet by mouth 2 times daily (with meals). Date of Encounter in This Dept: 08/05/2019 Date of Next Encounter in this Dept: 01/31/2020 Last Labs: Lab Results Component Value Date WBC 10.8 (H) 06/29/2019 HGB 11.9 06/29/2019 HCT 37.3 06/29/2019 PLATELET 277 06/29/2019 ALT 25 01/13/2020 AST 18 01/13/2020 NA 141 01/13/2020 K 4.3 01/13/2020 CL 105 01/13/2020 BUN 17 01/13/2020 CO2 24 01/13/2020 TSH 3.57 04/09/2019 GLUCFASTING 116 (H) 06/29/2019 HA1C 6.9 (H) 01/13/2020 MICROALBUR <3.0 06/21/2019 documented in this encounter Plan of Treatment Upcoming Encounters Date Type Department Care Team (Late st Contact Info) Description 03/20/2024 9:00 AM EDT TH Visit (TeleHealth) Sleep Center [facility] [address] [place] [phone] Denisse Hardwick, [facility] 03/20/2024 2:00 PM EDT Clinical Support [facility] [address] [place] [phone] Julia Low, [facility] 05/01/2024 11:20 AM EDT Appointment Mammography/[place] [address] Rodney Padilla MD [address] [place] [address] 05/01/2024 1:45 PM EDT Office [place] [address] Juanpablo Hernandez MD [facility] [place] [address] 01/30/2025 1:30 PM EDT Appointment Hematology [place] [address] 01/30/2025 3:[address] [place] [address] Arturo Cordero MD [facility] HEMATOLOGY [place] [address] 01/30/2025 4:15 PM EDT Office Visit Hematology [place] [address] Arturo Cordero MD [facility] DR HEMATOLOGY [place] [address] documented as of this encounter Visit Diagnoses Diagnosis Type 2 diabetes mellitus without long-term current use of insulin documented in this encounter Care Teams Contract Manager Relationship Specialty Start Date End Date Luis E Narayan MD [facility] [address] [place] [address] PCP - General Family Medicine 03/26/19 01/19/22 documented as of this encounter
--- OUTSIDE RECORDS SUMMARY | 2024-03-04 21:27 | XMS_ITS | Encounter Summary ---
Author Organization [facility] [place] [address] Care Team Providers Care Lab Manager Name Role Phone Luis E Narayan MD Primary Care Provider [phone] Reason for Visit * Reason Comments Follow-up Encounter Details Date Type Department Care Team (Late st Contact Info) Description 12/23/2019 8:15 AM EDT Office [place] [address] Maurilio Spann MD [facility] [place] [address] Amy Aguiar MD [facility] [place] [address] Cognitive and behavioral changes Social History Tobacco Use Types Packs/Day Years [...] Sign Reading Time Taken Comments Blood Pressure 112/82 12/23/2019 8:12 AM EDT Pulse 72 12/23/2019 8:12 AM EDT Temperature - - Respiratory Rate - - Oxygen Saturation - - Inhaled Oxygen Concentration - - Weight - - Height - - Body Mass Index - - documented in this encounter Progress Notes * Amy Aguiar - 12/23/2019 8:15 AM EDT Neurology Outpatient Clinic - 12/23/2019 Patient name: Alize Gramajo Date of : 1960 PCP: Luis E Narayan MD Clinic Attending: Dr. Spann I have seen Alize Gramajo, patient of Luis E Narayan MD, at the request of Luis E Narayan for evaluation of MRI abnormalities Patient's CC: memory issues HPI: Alize Gramajo is a 59-year-old female with past medical history significant for hypertension, coronary artery disease status post angioplasty, asthma, GERD, hyperlipidemia, depression who presents to outpatient neuromuscular clinic for follow up visit. Interval history- Sleep study visit diagnosed with sleep apnea and is currently on CPAP. Same neuro symptoms- Balance issues and cognition. Sometimes feels very depressed and anxious. Sees a therapist every week (telephone visit) MS ROS: Negative for vision complaints. No Lhermitte sign. Bothered by cold, not heat. In June, patient was found to have left adrenal and renal masses. 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 She continues to be under supervision. As to her neurological symptoms she states they are stable and there is no improvement or deterioration. She continues to have numbness in her feet and also some balance issues. Initial HPI from 04/2019: Briefly, patient states about 4 months ago she was at her brother's who from cancer and she had a sick contact and as a result she was hospitalized for 3 days with bad cough and fever. She was diagnosed with pneumonia and was placed on strong steroids and antibiotics she does not know name of the antibiotic but states this medication causes similar symptoms she is experiencingand is off the market. Patient states she was discharged home after 3 days but she never got betterand became sicker and sicker. She was asked to describe her sickness which she states she was not able to sleep and had cognitive issues, mental status changes was swearing alot and had speech problem described as forgetting words and not able to finish sentences. Patient states she was taken to [facility] and it was initially thought that she is having a clot in her body and thus underwent echocardiograms, ultrasounds of her lower extremities and all were negative. 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 Patient states she [facility] stop steroids and gave her breathing treatments. Around the same time she states she noticed that she was incontinent for bladder. She did not get enough answers for bladder incontinence and her cognitive issues. All she was able to know about from her hospitalization that asmall focus of scarring in the left upper lobe on chest CT was seen. Her CT chest: States a subpleural 7 mm nodular density is seen in the left upper lobe. Unclear if this represents a true pulmonary nodule or scarring associated. Patient states during this time predated she also experienced another in the family. 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 She states her also left her and she is very stressed about financial situation at home. She is in the middle of getting disability right now. Patient then comes back to her medical issues and states around the same time she noted that her feet was on fire and her toes hurt. She noted she had swelling up to the knees. She complains about similar pain in her fingertips. Now she states her pain is not that bad but more of a numb and weird feeling. She always has had back pain and sciatica. Her last imaging of her back revealed degenerative disc disease at L4-L5 and L5- S1 with moderate neural foraminal narrowing at these levels. Also noted foraminal disc extrusion at left L3-L4 with resulting moderate foraminal narrowing. During the interview patient actually had an emotional breakdown. She states she is quite frustrated at this nobody is able to find out her problems. She is weak feels weak all over. And due to her psychiatric issues she goes to a counselor and is placed on Lamictal. Patient states she is sleeping okay she does not have any insomnia. She does not have any guilt. She is not able to concentrate. Her attention is little bit impaired. She denies any agitation. She denies any suicidal or homicidal thoughts. Past Medical & Surgical History: Past Medical History: Diagnosis Date ??? Antiplatelet or antithrombotic long-term use aspirin, plavix ??? Asthma uses inhalerswith good effect ??? Atherosclerosis of [place] coronary artery of [place] heart with angina pectoris 10/09/2007 History of angina status post myocardial infarction October 2007 with stenting x4 ??? CAD (coronary artery disease) October 12, 2007 ??? COPD (chronic obstructive pulmonary disease) ??? CPAP (continuous positive airway pressure) dependence ??? Depression ??? Diabetes this week around 120 ??? Diabetes mellitus borderline ??? Heart valve disease [place] ??? High blood pressure controlled with medication ??? Hypercholesterolemia ??? Hypertension ??? Mental health problem Depression, anxiety ??? [...] 27.41) performed by Avila Medina MD at [facility] Medications: Current Outpatient Medications on File Prior to Visit Medication Sig Dispense Refill ??? loratadine (Claritin) 10 mg Tablet Take 1 tablet by mouth daily. 90 tablet 3 ??? metoprolol succinate XL (Toprol XL) 25 mg Tablet Sustained Release 24 hr Take 1 tablet by mouthdaily. 90 tablet 3 ??? lamoTRIgine (LaMICtal) 100 mg Tablet Take 1 tablet by mouth daily. 90 tablet 3 ??? lancets Misc Use for twice daily testing 100 each 11 ??? blood sugar diagnostic strips Strip Use as instructed 100 each 12 ??? Blood-Glucose Meter Misc Use twice daily 1 each 0 ??? fluticasone propionate (FLONASE) 50 mcg/actuation [place], Suspension 1 spray by Each Nare route 2 times daily. 16 g 11 ??? clopidogrel (PLAVIX) 75 mg Tablet Take 1 tablet by mouth daily. Restart post-operatively on 07/05 90 tablet 3 ??? aspirin EC 81 mg Tablet, Delayed Release (E.C.) Take 81 mg by mouth daily. ??? metFORMIN (GLUCOPHAGE) 1,000 mg Tablet Take 1 tablet by mouth 2 times daily (with meals). 180 tablet 1 ??? nitroGLYcerin (NITROSTAT) 0.4 mg Tablet, Sublingual Place 1 tablet under the tongue See Admin Instructions. 30 tablet 0 ??? amLODIPine (NORVASC) 5 mg Tablet Take 1 tablet by mouth daily. 90 tablet 4 ??? simvastatin (ZOCOR) 10 mg Tablet Take 1 tablet by mouth daily. 90 tablet 4 ??? budesonide-formoterol (SYMBICORT) 80-4.5 mcg/actuation HFA Aerosol Inhaler Inhale 2 puffs into the lungs 2 times daily. 1 Inhaler 11 ??? losartan (COZAAR) 100 mg Tablet Take 1 tablet by mouth daily. 90 tablet 3 ??? omeprazole 20 mg Tablet, Delayed Release (E.C.) Take 1 tablet by mouth daily. 90 tablet 3 ??? traZODone (DESYREL) 100 mg Tablet Take 1 tablet by mouth nightly. 90 tablet 3 ??? ALBUTEROL SULFATE (PROVENTIL HFA INHL) ??? [DISCONTINUED] cyclobenzaprine (FLEXERIL) 5 mg Tablet Take 1 tablet by mouth 3 times daily as needed for Muscle spasms for up to 9 doses. (Patient not taking: Reported on 12/23/2019) 9 tablet 0 ??? [DISCONTINUED] ondansetron (ZOFRAN) 4 mg Tablet Take 1 tablet by mouth every 8 hours as needed for Nausea. (Patient not taking: Reported on 12/23/2019) 20 tablet 0 ??? nicotine (NICODERM CQ) 21 mg/24 [address] 1 patch onto the skin daily as needed. (Patient not taking: Reported on 12/23/2019) 30 patch 11 ??? [DISCONTINUED] fluticasone-salmeterol (ADVAIR HFA) 115-21 mcg/Actuation inhaler (Patient not taking: No sig reported) No current facility-administered medications on file prior to visit. Allergy: Allergies Allergen Reactions ??? Codeine Phosphate Nausea And Vomiting ??? Erythromycin Base Nausea Only ??? Azithromycin ??? Ibuprofen Stomach upset ??? Lisinopril cough ??? Nsaids (Non-Steroidal Anti-Inflammatory Drug) Nausea And Vomiting Family History: Significant family history of cancer Social History: Smoking: smokes a pack per day EtOH: denies Illicits: denies Living Situation: lives alone. Has support from her daughter Occupation: does not work. Was caregiver of her brother in law's father who recently. Review of systems: Constitutional: No fevers or chills Eyes: No vision changes, no diplopia, no blurry vision ENT: No rhinorrhea or pharyngitis, no meningismus CV: No chest pain or palpitations Resp: No cough, no shortness of breath GI: No nausea, vomiting, diarrhea or constipation : No dysuria, no incontinence Heme: No bleeding or bruising Endo: No polyuria or cold intolerance Neuro: See HPI Psych: No depression, normal sleep [x] Review of systems otherwise negative Physical Exam: Gen: Apparent stated age, well nourished, well developed, awake, alert, NAD Neck: Supple, no meningismus, no carotid bruit, no occipital tenderness HEENT: MMM CV: S1, S2, RRR, no murmur apreciated Resp: Normal respiratory effort, CTAB Abd: +normoactive bowel sounds, soft, nontender, nondistended Ext: No edema. No bony deformity Skin: No suspicious rashes or lesions Neuro Exam: MS: Awake, alert, oriented to person, place, year, month Able to state months of year backwards, mimic interlocking hand gestures MOCA of 26 in July, () patient had deficits in executive functioning, language, abstraction and delayed recall. Mild dysarthria noted. CN: Pupils 4mm ERRL, no RAPD EOMI, visual hall full to confrontation, without simultagnosia Facial sensation intact to light touch, temperature No facial asymmetry Hearing intact to voice Palate elevates symmetrically, tongue protrudes midline SCM and trap strength intact Motor: Normal bulk and tone. No pronator drift. Hand rolling intact. UE: 5/5 R, 5/5 L Arm abduction at shoulder 5/5 R, 5/5 L Elbow extension, elbow flexion 5/5 R, 5/5 L Wrist adduction, abduction, flexion, and extension 5/5 R, 5/5 L Finger abduction, flexion, and extension 5/5 R, 5/5 L Thumb abduction LE: 5/5 R, 5/5 L Hip flexion 5/5 R, 5/5 L Hip adduction 5/5 R, 5/5 L Knee flexion and extension 5/5 R, 5/5 L Foot dorsiflexion and plantarflexion 5/5 R, 5/5 L Foot eversion and inversion 5/5 R, 5/5 L Great toe dorsiflexion, plantarflexion Sensory: Light touch: slightly reduced touch on medial and lateral aspects of feet Vibration via igobubble tuning fork (1-8): reduced at big toes Pin: reduced at dorsal aspect of feet B/L Cooled instrument: normal cool sense in bilateral MTPs Proprioception: intact at bilateral great toes Reflexes: Horner's Negative bilaterally. DTRs 1+ R, 1+ L Biceps 1+ R, 1+ L Brachioradialis 1+ R, 1+ L Triceps 1+ R, 1+ L Patellar 1 R, 1 L Achilles tendon Toes R down, L down Coordination: Finger to nose intact, no dysmetria Rapid alternating movements & finger tapping smooth and symmetric Heel-graham intact No tremor at rest or with motion Gait: Normal stride, stance, armswing. Stable. Negative Romberg. Electrodiagnostic testing: The complete findings will be reported elsewhere (see scanned documents). Briefly, electrodiagnostic study was performed in bilateral lower extremity and left upper cavity. Bilateral sural sensory nerve responses were absent. Left medial plantar was also checked and was absent. Left radial sensory nerve response was normal in latency, amplitude and conduction velocity. Left peroneal motor was normal in amplitude, latency and conduction velocity. Left and right tibial motors were normal in responses. F waves were normal in left peroneal and bilateral tibial nerves. EMG was not performed as the question was only for polyneuropathy. Does based on this nerve conductionstudy the findings are suggestive of predominantly sensory polyneuropathy. Diagnostic Tests and Imaging: MRI Brain: IMPRESSION Scattered periventricular and subcortical white matter foci without restricted diffusion or enhancement. Findings are indeterminate with broad differential which includes small inactive demyelinatinglesions, chronic small vessel ischemic changes from microangiopathy, hypertension or migraines, or even inflammation from vasculitides or other inflammatory/inflammatory processes. MRI L spine: Impression Advanced degenerative disc disease at L4 on L5 and L5-S1 with resulting moderate neural foraminal narrowing at these levels. New left paracentral and foraminal disc extrusion at the left L3-L4 with resulting moderate foraminal narrowing, which likely impacts the left L3 and L4 roots. EEG: INTERPRETATION: This EEG is normal during the awake only state as well as during the activation procedures of hyperventilation and photic stimulation. CLINICAL CORRELATION: A normal EEG does not rule out epilepsy. If clinical suspicion for epilepsy remains, diagnostic yield can be increased by obtaining a prolonged recording, or a recording that includes sleep. ?? Assessment / Plan: Alize Gramajo is a 59-year-old female with past medical history significant for hypertension, type2 diabetes mellitus, coronary artery disease status post angioplasty, asthma, GERD, hyperlipidemia,depression who presents to outpatient neuromuscular clinic for further evaluation for possible multiple sclerosis versus neuropathy. Based on history patient has multiple neurological complaints and it is hard to make a single differential out of them. Her last MOCA test in July showed slight improvement, today she feels the same states no detrioration in symptoms. Patient was diagnosed with clear cell renal cell carcinoma and underwent left partial nephrectomy in June,. There is als o small benign mass on adrenal gland currently being evaluated by Urology. Since this diagnosis we ordered paraneoplastic antibodies and they came back negative. Her speech continues to be affected with change in her accent and trouble finding words. Nutritional deficiency like B1 was ruled out. She is still awaiting neuro psych testing. Other differential for her cognitive changes would be prolonged sickness vs stress at home (deaths in family) vs neurodegenerative disorder (seems less likely but in differential). EEG was normal. She did undergo reversible causes of neuropathy including B12,TSH and they were normal. Type 2 DM is most likely etiology of neuropathy. She complains of balanceissues which are secondary sensory ataxia. Patient also complains of urinary incontinence and cognitive issues which makes a differential of normal pressure hydrocephalus, patient did have MRI of thebrain and ventricles does not seem to be dilated and does not fulfill Boudreaux criteria for normal pressure hydrocephalus. Same goes for multiple sclerosis, brain MRI does reveal some white matter foci but they seem more likely suggestive of chronic small vessel ischemic changes from age, hypertensionversus smoking. Psychological effects can also cause multitude of neurological complaints without any organic pathology. Patient is getting help from counselor but has not seen psychiatry but that will be diagnosis of exclusion when we get the results for below testing all negative. Normal paraneoplastic panel and check B6 and SPEP for neuropathy. HbA1C elevated at 7.2 consistent with history of Type 2 DM, normal B12, B1 and TSH. - Referral to Neuropsychology testing again. Patient states she has called many times but nobody has scheduled her yet. Will reach out to the department. - Patient has been trying for disability since april. Due to her multiple neurological complaintsand history of cancers we think she should be on disability. Her neurological workup is still underprocess and is yet to undergo neuro psych testing. Amy Aguiar MD Clinical Neurophysiology Fellow Pager: [phone] 12/23/2019 documented in this encounter Plan of Treatment Upcoming Encounters Date Type Department Care Team (Late st Contact Info) Description 03/20/2024 9:00 AM EDT TH Visit (TeleHealth) Sleep Center at [facility] [address] [place] [phone] Denisse Hardwick, [facility] 03/20/2024 2:00 PM EDT Clinical Support Family Medicine at [facility] [address] [place] [address] Julia Low, [facility] 05/01/2024 11:20 AM EDT Appointment Mammography/[place] [address] Rodney Padilla MD [address] [facility] [place], [place] [id number] 05/01/2024 1:45 PM EDT Office [place] [address] Juanpablo Hernandez MD [facility] [place] [address] 01/30/2025 1:30 PM EDT Appointment Hematology [place] [address] 01/30/2025 3:[address] [place] [address] Arturo Cordero MD [facility] [place] [address] 01/30/2025 4:15 PM EDT Office Visit Hematology [place] [address] Arturo Cordero MD [facility] [place] [address] documented as of this encounter Visit Diagnoses Diagnosis Cognitive and behavioral changes Other signs and symptoms involving cognition documented in this encounter Care Teams Lab Manager Relationship Specialty Start Date End Date Luis E Narayan MD [facility] [address] [place] [address] PCP - General Family Medicine 03/26/19 01/19/22 documented as of this encounter
--- OUTSIDE RECORDS SUMMARY | 2024-03-04 21:27 | XMS_ITS | Encounter Summary ---
Author Organization [facility] Address [facility] [place] [address] Care Team Providers Care Visor Installer Name Role Phone Luis E Narayan MD Primary Care Provider [phone] Encounter Details Date Type Department Care Team (Late st Contact Info) Description 11/06/2019 11:30 AM EDT TH Visit (TeleHealth) Sleep Center at [facility] [address] [place] [address] Jhonny Morataya MD [facility] [place] [address] TITO (obstructive sleep apnea); Chronic insomnia; RLS (restless legs syndrome) Social History Tobacco Use Types Packs/Day Years [...] this encounter Patient Instructions * Patient Instructions* Jhonny Morataya MD - 11/06/2019 11:30 AM EDT 1) Get up at the same time seven days out of the week. You can stick with your 7:30 am wake time ifyou wish. 2) Only go to bed when feeling sleepy. You may take the trazodone when you start to feel sleepy. Consider trying a dose reduction in the trazodone from 100 to 50 mg. Be sure to allow at least 8 hrs between the trazodone and the operation of any vehicle or activity requiring alertness. 3) Wind down in the evening without [...] days until off. 9) Avoid smoking near bedtime. 10) Avoid napping except for driving safety. If you feel to sleepy to drive do not drive. If you get sleepy while driving socket puller and nap. You may resume driving once you feel alert. 11) Read No More Sleepless Nights by Mack Heaton PhD. 12) Dr Morataya will send a prescription to [facility] for a pressure increase. If you have problems with the pressure increase please let my office know at [phone] 13) Not getting enough sleep may lead to something called dasha which you are at risk for given your history of bipolar disorder. Dasha may show up as excessive spending or enthusiasm. Please report any change in behavior to your primary care physician or psychiatrist. documented in this encounter Progress Notes * Jhonny Morataya MD - 11/06/2019 11:30 AM EDT Sleep Medicine Follow-Up Note - PHONE Patient verbally consents to this telephone visit and understands that this visit may be billed, similar to a clinic office visit. yes Patient Location: At [facility] patient is located in at time of this visit: [place] Chief Complaint: Daytime tiredness HPI: Ms. Alize Gramajo is a 58 y.o. female seen at for follow-up regarding insomnia, TITO, and probable RLS. Sleep Medicine Summary: ?? Sleep Medicine [...] no change in treatment ?? Re-evaluation in [facility] 05/09/19 On CPAP still and [...] bothersome enough to treat. Iron indices recommended. Letter 05/09/19 Normal H/H, Fe, TIBC and ferritin (55 ng/ml). Reduced iron saturation at 13%. Recommend: Fe sulfate 325 mg qod Mandatory Split Night PSG @ 235 lbs [...] CPAP 9-14 cm with F20 via RR Today: First visit back on the new CPAP. She received a new CPAP probably back in the fall. She likes the new CPAP. It is much quieter. She finds the CPAP helpful. 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 Also had neurology evaluation 07/05/20 for memory issues and parasthesias. Follow up in neurology requested by her neurologist. The patient reports the new pressure feels fine. Mask fits well. Initial mask slid off - new mask (medium) fits better. The mask stays in place. She uses a FFM. Likes this mask. She reports her tiredness is better. Both the new CPAP and the new pressure were helpful. She reports ongoing anxiety. She is worried about her cancer dx even though she was told they got it all. She continues on trazodone 100 mg nightly. She takes it only for sleep. She feels she needs it for sleep. Her mind would otherwise go. The trazodone helps her get to sleep. She may wake up early with anxiety. She may have trouble returning to sleep. She is now working with a counselor. She continues with cognitive problems. She is being followed in neurology. She denies RLS today although is an elusive historian. She describes knee discomfort. She took ironfor a time but is now off the iron. Treatment: Auto CPAP 9-14 cm Pressure: see above Interface: F20 FFM Rx after last study Fit: good Chin strap: no Ongoing Snoring: unknown as she sleeps alone Mouth Breathing: deferred Dry Mouth in AM: sometimes Nocturnal Gasping: no ROS: ENT: Nasal Obstruction: on occasion, she describes alleriges, daily allergy pills helps CONSTITUTIONAL: Weight: went down when she had a virus last summer but has gained weight back. Unsure if weight different now than at the time of her last sleep study Sleep Pattern: She gets into bed 9-11 pm, usually 9-10 pm Trazodone 20 min before bed Lights out immediately Latency to sleep is about 30 min but sometimes longer (unclear how often it is more than 30 min) She does not wake during the night She wakes for the day 5-7:30 am, spontaneously. Mostly waking around 7:30 am. Used to get up at 5:30 regularly in the past. Questionnaires: Patient-reported scores: [facility] 05/09/2019 [facility] 10 (High Risk) Insomnia Severity Index - [facility] 05/07/2019 05/09/2019 [facility] 7 10 (High Risk) Insomnia Severity Index 22 (Severe insomnia) - Daytime Symptoms: Naps: 2 x per week for up to 3 hrs Involuntary Dozing: no Driving: The patient does not report difficulty with sleepiness and driving anymore. [facility]. No problems since the new CPAP machine. She reports tiredness that is different than I last saw her - she attributes the tiredness to recovery from her cancer surgery. She is less tired new with the new CPAP. Compliance Card Data: Date Range: 07/28/19 to 10/27/19 Settin cm until early August then auto 9-14 cm Hitting maximum allowed pressure in auto mode. 90% pressure of 11.8 cm, average pressure of 10.1 cm Residual AHI: 1 Vibratory Snore Index: 22 (VSI was higher on 15 cm than on auto) % Night in Large Leak: 0.4% LL Average usage days used: 9 hrs 12 min % Days used: 99% % Days with USage > 4 hrs: 99% Patient Active Problem List Diagnosis Code ??? Coronary artery disease involving [place] coronary artery of [place] heart with angina pectoris I25.119 ??? Altered mental status R41.82 ??? Abnormal MRI of head R93.0 ??? Mixed hyperlipidemia E78.2 ??? Essential hypertension I10 ??? Recurrent major depressive disorder, in remission F33.40 ??? Chronic bilateral low back pain without sciatica M54.5, G89.29 ??? TITO on CPAP - mild G47.33, Z99.89 ??? Type 2 diabetes mellitus without long-term current use of insulin E11.65 ??? Anxiety F41.9 ??? Depressive disorder F32.9 ??? Hx of dysplasia of cervix, low grade (VALENTINO 1) N87.0 ??? H/O heart artery stent x4 LCX Z95.5 ??? Diabetic polyneuropathy associated with type 2 diabetes mellitus E11.42 ??? COPD J41.0 ??? Bipolar affective disorder in remission F31.70 ??? Left renal mass N28.89 ??? Iron deficiency E61.1 ??? Left atrial dilatation - severe I51.7 ??? Renal mass, left N28.89 Current Outpatient Medications Medication Sig Dispense Refill ??? loratadine (Claritin) [...] 0 ??? fluticasone propionate (FLONASE) 50 mcg/actuation [place], Suspension 1 spray by Each Nare route 2 times daily. 16 g 11 ??? cyclobenzaprine (FLEXERIL) 5 mg Tablet Take 1 tablet by mouth 3 times daily as needed for Muscle spasms for up to 9 doses. 9 tablet 0 ??? clopidogrel (PLAVIX) 75 mg Tablet Take 1 tablet by mouth daily. Restart post-operatively on 07/05 90 tablet 3 ??? ondansetron (ZOFRAN) 4 mg Tablet Take 1 tablet by mouth every 8 hours as needed for Nausea. 20 tablet 0 ??? aspirin EC 81 mg Tablet, Delayed Release (E.C.) Take 81 mg by mouth daily. ??? nicotine (NICODERM CQ) 21 mg/24 [address] 1 patch onto the skin daily as needed. 30 patch 11 ??? metFORMIN (GLUCOPHAGE) 1,000 mg Tablet [...] by mouth nightly. 90 tablet 3 ??? fluticasone-salmeterol (ADVAIR HFA) 115-21 mcg/Actuation inhaler ??? ALBUTEROL SULFATE (PROVENTIL HFA INHL) No current facility-administered medications for this visit. Soc Hx: Alcohol: none Caffeine: 1/2 caffeine coffee in am Not working anymore PE: Deferred Assessment: Ms. Alize Gramajo is a 58 y.o. female who is seen for follow-up of multiple sleep issues. Obstructive sleep apnea (TITO): First visit back on her new auto CPAP 9-14 cm. She likes the new CPAP and notes benefit. She reports she could not sleep without CPAP. VSI is elevated on the current auto CPAP settings but was suprisingly higher when on CPAP 15 cm fixed. Visual snoring noted at all pre ssures on last CPAP titration 08/13/19. Noted to be hitting maximum pressure allowed of 14 cm on CC download as well. Will increase auto CPAP to 11-16 cm. Script to RR. Insomnia: Continues on trazodone 100 mg nightly. Compliance card download suggests excess time in bed given average usage days used of over 9 hrs per day. She describes some insomnia (sometimes sleeponset, sometimes waking earlier than she would like) but the frequency is unclear. Good sleep habits and behavioral treatments for insomnia discussed. Also suggested trial of a reduction in trazodoneto 50 mg from 100 mg but she is skeptical. Urged her to wait to take the trazodone until sleepy in the evening and not let the trazodone dictate her bed time. Encouraged to go to bed when sleepy, keep fixed wake time and avoid naps. RLS: Previously recommended that she take iron every other day given the presence of RLS and a reduced iron saturation. She is off the iron now and not noting any RLS. She was told to stop it by her urologist she reports. We will observe for RLS at this time. I provided care to the patient today via telephone call Time spent on the call and on chart work: 50 min Recommendations: 1) CPAP auto 11-16 cm - script to RR 2) Follow-up 4 mo with RT Hardwick in the CPAP clinic 3) No RLS treatment at this time. 4) Behavioral treatments for insomnia. See AVS. The patient indicates understanding of these issues and agrees with the plan. documented in this encounter Plan of Treatment Upcoming Encounters Date Type Department Care Team (Late st Contact Info) Description 03/20/2024 9:00 AM EDT TH Visit (TeleHealth) Sleep Center at [facility] [address] [place] [address] Denisse Hardwick, [employer] [facility]GER [facility] 03/20/2024 2:00 PM EDT Clinical Support Family Medicine at [facility] [address] [place] [address] Julia Low, [facility] 05/01/2024 11:20 AM EDT Appointment Mammography/[place] [address] Rodney Padilla MD [address] [facility] [place], [place] [id number] 05/01/2024 1:45 PM EDT Office [place] [address] Juanpablo Hernandez MD [facility] [place] [address] 01/30/2025 1:30 PM EDT Appointment Hematology [place] [address] 01/30/2025 3:[address] [place] [address] Arturo Cordero MD [facility] HEMATOLOGY [place] [address] 01/30/2025 4:15 PM EDT Office Visit Hematology and Oncology at [address] [place] [address] Arturo Cordero MD [facility] HEMATOLOGY [place] [address] documented as of this encounter Visit Diagnoses Diagnosis TITO (obstructive sleep apnea) Obstructive sleep apnea (adult) (pediatric) Chronic insomnia Insomnia, unspecified RLS (restless legs syndrome) Restless legs syndrome (RLS) documented in this encounter Care Teams Visor Installer Relationship Specialty Start Date End Date Luis E Narayan MD [facility] [address] [place] [address] PCP - General Family Medicine 03/26/19 01/19/22 documented as of this encounter
--- OUTSIDE RECORDS SUMMARY | 2024-03-04 21:27 | XMS_ITS | Encounter Summary ---
Author Organization [facility] [place] [address] Care Team Providers Care Vegetable Farmworker Name Role Phone Rodney Padilla MD Primary Care Provider [phone]- [phone] Reason for Visit * Reason Onset Date Comments Medication Refill 08/01/2019 Encounter Details Date Type Department Care Team (Late st Contact Info) Description 08/01/2019 Refill Family Medicine at [facility] [address] [place] [address] Bonny Emanuel MD [address] [facility] [place] [address] Social History Tobacco Use Types Packs/Day Years [...] [facility] [address] [place] [address] Denisse Hardwick, [facility] 03/20/2024 2:00 PM EDT Clinical Support Family Medicine [facility] [address] [place] [address] Julia Low, [facility] 05/01/2024 11:20 AM EDT Appointment Mammography/DXA at [place] [phone] Rodney Padilla MD [address] [place] [address] 05/01/2024 1:45 PM EDT Office Visit Ophthalmology at [place] [address] Juanpablo Hernandez MD [facility] [place] [address] 01/30/2025 1:30 PM EDT Appointment Hematology and Oncology at [place] [address] 01/30/2025 3:[address] Scan at [address] Arturo Cordero MD [facility] [place] [address] 01/30/2025 4:15 PM EDT Office Visit Hematology and Oncology at [place] [address] Arturo Cordero MD [facility] DR HEMATOLOGY AND [place] [address] documented as of this encounter Visit Diagnoses Not on filedocumented in this encounter Care Teams Vegetable Farmworker Relationship Specialty Start Date End Date Rodney Padilla MD [address] [place] [address] PCP - General 07/18/22 documented as of this encounter
--- OUTSIDE RECORDS SUMMARY | 2024-03-04 21:27 | XMS_ITS | Encounter Summary ---
Author Organization [facility] [place] [address] Care Team Providers Care Coal Wheeler Name Role Phone Luis E Narayan MD Primary Care Provider Reason for Visit * Reason Onset Date Comments Triage 01/13/2020 Encounter Details Date Type Department Care Team (Late st Contact Info) Description 01/13/2020 Telephone Family Medicine at [facility] [address] [place] [id number] Jeff Miller Triage Social History Tobacco Use Types Packs/Day [...] encounter Miscellaneous Notes * Telephone Encounter - Holly Boucher RN - 01/15/2020 9:58 AM EDT Attempted again to follow up with patient regarding request. No answer; call went to unidentified . Left second generic message requesting return call to clinic. Will send [facility] message advising thesame. * Telephone Encounter - Holly Boucher RN - 01/13/2020 3:05 PM EDT Attempted to return call to patient. No answer; call went to unidentified VM. Left generic message requesting return call to clinic at [phone]. * Telephone Encounter - Milo Griffin MD - 01/13/2020 2:57 PM EDT How urgent is pt feeling on rx? Could wait until Sylvain visit vs I can refer to [facility] for possibly prompter eval given bipolar history Milo Griffin MD [facility] * Telephone Encounter - Alejandra Posadas RN - 01/13/2020 2:14 PM EDT Caller: Alize Gramajo Patient identified by name and Chief Complaint: Increased anxiety Onset: Since wintertime Objective & Relative System Assessment (pain scale): No SI or self harm = Id call for that, I have three beautiful grand kids keeping me going Reporting trouble falling asleep due to not being able to turn off my thoughts rumination and worry- getting 6-8 hours a night constant stream of thoughts in daytime too- worries No change in eating patters Feeling more depressed and anxious due to COVID 19 and national/global issues Was told today that there is no cancer sp partial nephrectomy and she's happy about that Alleviating Factors: Was prescribed lorazepam I the past but she knows she can't do that assisted Pertinent History: FERCHO 08/05. Next 01/30. Hx bipolar affective disorder, MDD, anxiety. Also COPD, DM2, CAD, left atrial dilation. Taking 100 mg Lamictal daily and 100 mg trazodone nightly Lab Results Component Value Date CREATININE 0.86 01/13/2020 BUN 17 01/13/2020 NA 141 01/13/2020 K 4.3 01/13/2020 CL 105 01/13/2020 CO2 24 01/13/2020 Plan: __x_Will Discuss with PCP/COS and then call patient back. Recommendations for worsening condition: CB with worsening anxiety. ED for any SI Does the Patient agree and understand the instructions provided: yes Note routed to: Luis E Narayan MD For review. * Telephone Encounter - Alejandra Posadas RN - 01/13/2020 11:13 AM EDT F/u scheduled 01/30. FERCHO 08/05. Hx bipolar affective disorder, MDD, anxiety. Also COPD, DM2, CAD, left atrial dilation Will f/u at 2 pm- no psych meds on file outside of trazodone 100 mg nightly * Telephone Encounter - Jeff Miller - 01/13/2020 11:02 AM EDT Message: Patient states, she is dealing with anxiety due to her current treatment and would like todiscuss further with nurse. Patient answered negative to worried about hurt/harming herself. Ask caller their first and last name and relationship to the patient: Alize Gramajo Best time to call back: after 2pm today Ok to leave a message: yes Ok to send [facility] message: no Offered Appointment: yes, Patient requested next available with pcp. MA/Nurse/Edger Saw Operator contacted via: Message: yes Call: no Pager: no documented in this encounter Plan of Treatment Upcoming Encounters Date Type Department Care Team (Late st Contact Info) Description 03/20/2024 9:00 AM EDT TH Visit (TeleHealth) Sleep Center at [facility] [address] [place] [phone] Denisse Hardwick, [employer] [facility] 03/20/2024 2:00 PM EDT Clinical Support Family Medicine at [facility] [address] [place] [address] Julia Low RPH 05/01/2024 11:20 AM EDT Appointment Mammography/[place] [address] Rodney Padilla MD [address] [place] [address] 05/01/2024 1:45 PM EDT Office Visit Ophthalmology at [place] [address] Juanpablo Hernandez MD [facility] [place] [address] 01/30/2025 1:30 PM EDT Appointment Hematology and Oncology at [place] [address] 01/30/2025 3:[address] [place] [address] Arturo Cordero MD [facility] DR H[place]AT[place] [address] 01/30/2025 4:15 PM EDT Office Visit Hematology and Oncology at [place] [address] Arturo Cordero MD [facility] [address] [place] [address] documented as of this encounter Visit Diagnoses Not on filedocumented in this encounter Care Teams Coal Wheeler Relationship Specialty Start Date End Date Luis E Narayan MD [facility] [place] [address] PCP - General Family Medicine 03/26/19 01/19/22 documented as of this encounter
--- OUTSIDE RECORDS SUMMARY | 2024-03-04 21:27 | XMS_ITS | Encounter Summary ---
[facility] Organization [facility] [place] [address] Care Team Providers Care Ent Consultant Name Role Phone Luis E Narayan MD Primary Care Provider [phone] Encounter Details Date Type Department Care Team (Latest Contact Info) Description 01/13/2020 10:00 AM EDT Laboratory Appointment Lab [address] [place] [id number] Type 2 diabetes mellitus without long-term current use of insulin; Renal cancer, left Social History Tobacco Use Types [...] at [facility] [address] [place] [address] Denisse Hardwick, [facility] 03/20/2024 2:00 PM EDT Clinical Support Family Medicine at [facility] [address] [place] [address] Julia Low [facility] 05/01/2024 11:20 AM EDT Appointment Mammography/[place] [address] Rodney Padilla MD [address] [place] [address] 05/01/2024 1:45 PM EDT Office Visit Ophthalmology [place] [phone] Juanpablo Hernandez MD [facility] [place] [address] 01/30/2025 1:30 PM EDT Appointment Hematology and Oncology at [place] [phone] 01/30/2025 3:[address] Scan at [place] [phone] Arturo Cordero MD [facility] [address] [place] [address] 01/30/2025 4:15 PM EDT Office Visit Hematology and [place]cology [place] [phone] Arturo Cordero MD [facility] [address] [place] [address] documented as of this encounter Procedures Procedure Name Priority Date/Time Associated Diagnosis Comments HC HEMOGLOBIN A1C Routine 01/13/2020 10: 13 AM EDT Type 2 diabetes mellitus without long-term current use of insulin HC VENIPUNCTURE Routine 01/13/2020 10:13 AM EDT Type 2 diabetes mellitus without long-term current use of insulin documented in this encounter Results * (ABNORMAL) Hemoglobin A1c (01/13/2020 10:13 AM EDT) Hemoglobin A1c 6.9(H) 4.3 - 5.6 % [facility] Comment: Reference Range: 4.3 - [...] 36: Suppl. 1, S67-74 Estimated Average Glucose 151 mg/dL [facility] Comment: eAG equivalents for HbA1c [...] into estimated average glucose values. ??Diabetes Care 2008:31(8):8826-1206. Blood specimen (specimen) 01/13/2020 10:13 AM EDT 01/13/2020 10:22 AM EDT Narrative Resulting Agency Comment Spec In Lab Luis E Narayan MD CHEMISTRY ORDERABLE S [facility] [place] [address] * Comprehensive metabolic panel (non-fasting) (01/13/2020 10:13 AM EDT) Glucose 156 65 - 199 mg/dL [facility] Comment:Diabetes: >=200 mg/d L plus symptoms Blood Urea Nitrogen 17 8 - 18 mg/dL [facility] Creatinine 0.86 0.70 - 1.20 mg/dL [facility] Sodium 141 135 - 145 mmol/L [facility] Potassium 4.3 3.5 - 5.0 mmol/L [facility] Comment: Please note: ??Patients with WBC >100,000 may have falsely elevated Potassium levels. ??For accurate Potassium quantification in these patients send serum separator tube (gold top) for subsequent determinations. ??Contact the Clinical Chemistry Laboratory if there are any questions. Chloride 105 98 - 107 mmol/L [facility] Carbon Dioxide 24 22 - 31 mmol/L [facility] Anion Gap 12 5 - 15 mmol/L [facility] Calcium 9.4 8.5 - 10.5 mg/dL [facility] Protein, Total 6.7 6.1 - 8.0 gm/dL [facility] Albumin 4.2 3.2 - 5.2 gm/dL [facility] Aspartate Aminotransferase 18 0 - 30 unit/L [facility] Alanine Aminotransferase 25 0 - 30 unit/L [facility] Alkaline Phosphatase 88 35 - 105 unit/L [facility] Bilirubin, Total 0.3 0.2 - 1.3 mg/dL [facility] Est Glomerular Filtration Rate 73 >=60 mL/min/1. 73 m?? [facility] Comment: The eGFR was calculated using the CKD-EPI equation. As with all creatinine based estimates of kidney function, eGFR values calculated with the CKD-EPI equation are not accurate in patients with acute kidney failure, extremes of body mass or the acutely ill. http://LiveData/DHnkf eGFR 85 >=60 mL/min/1. 73 m?? [facility] Comment: The eGFR was calculated using the CKD-EPI equation. As with all creatinine based estimates of kidney function, eGFR values calculated with the CKD-EPI equation are not accurate in patients with acute kidney failure, extremes of body mass or the acutely ill. http://LiveData/DHMCnkf Blood specimen (specimen) 01/13/2020 10:13 AM EDT 01/13/2020 10:22 AM EDT Narrative Resulting Agency Comment Spec In Lab Luis E Narayan MD CHEMISTRY ORDERABLE S [facility] [place] [address] documented in this encounter Visit Diagnoses Diagnosis Type 2 diabetes mellitus without long-term current use of insulin Renal cancer, left documented in this encounter Care Teams Ent Consultant Relationship Specialty Start Date End Date Luis E Narayan MD [facility] [address] [place] [address] PCP - General Family Medicine 03/26/19 01/19/22 documented as of this encounter
--- OUTSIDE RECORDS SUMMARY | 2024-03-04 21:27 | XMS_ITS | Encounter Summary ---
[place] [address] Care Team Providers Care Concrete Block Maker Name Role Phone Luis E Narayan MD Primary Care Provider [phone] Encounter Details Date Type Department Care Team (Late st Contact Info) Description 04/08/2020 [place] [address] Arlene Puente Social History Tobacco Use Types Packs/Day Years [...] Miscellaneous Notes * Telephone Encounter - Arlene Puente - 04/13/2020 3:11 PM EDT Offered patient several dates prior to 05/14 but she is unable to make them due to transpertation. * Telephone Encounter - Arlene Puente - 04/08/2020 10:10 AM EDT Left message to schedule eye surgery with Dr. Hernandez documented in this encounter Plan of Treatment Upcoming Encounters Date Type Department Care Team (Late st Contact Info) Description 03/20/2024 9:00 AM EDT TH Visit (TeleHealth) Sleep Center at [facility] [address] [place] [address] Denisse Hardwick, [facility] 03/20/2024 2:00 PM EDT Clinical Support Family Medicine at [facility] [address] [place] [address] Julia Low, [facility] 05/01/2024 11:20 AM EDT Appointment Mammography/DXA at [place] [phone] Rodney Padilla MD [address] [place] [address] 05/01/2024 1:45 PM EDT Office Visit Ophthalmology at [place] [phone] Juanpablo Hernandez MD [facility] [place] [address] 01/30/2025 1:30 PM EDT Appointment Hematology and Oncology at [place] [phone] 01/30/2025 3:[address] Scan at [place] [phone] Arturo Cordero MD [facility] [place] [address] 01/30/2025 4:15 PM EDT Office Visit Hematology and Oncology at [place] [phone] Arturo Cordero MD [facility] [place] [address] documented as of this encounter Visit Diagnoses Not on filedocumented in this encounter Care Teams Concrete Block Maker Relationship Specialty Start Date End Date Luis E Narayan MD [facility] [address] [place] [address] PCP - General Family Medicine 03/26/19 01/19/22 documented as of this encounter
--- OUTSIDE RECORDS SUMMARY | 2024-03-04 21:27 | XMS_ITS | Encounter Summary ---
Author Organization [facility] [place] [address] Care Team Providers Care Linux Kernel Developer Name Role Phone Lui sE Narayan MD Primary Care Provider Encounter Details Date Type Department Care Team (Late st Contact Info) Description 07/26/2019 E-Consult Obstetrics [place] [address] Ally Gruber MD [facility] DR OBSTETRICS [place] [address] Hx of dysplasia of cervix, low grade (VALENTINO 1); Family history of uterine cancer Social History Tobacco Use Types Packs/Day [...] this encounter Miscellaneous Notes * E-Consult - Ally Gruber MD - 07/26/2019 1:56 PM EST Select F2 to choose the appropriate response: Proceed with eConsult 1. Restatement of the question: Patient new to and limited old records available. The patient's mother had uterine cancer at age 70+. The patient has remote history of abnormal Pap and VALENTINO I on biopsy, with more recent Pap and HPV normal. Most recent normal HPV and Pap 01/2018. She had been getting Pap/HPV annually in past. Patient also has significant cardiac disease (s/p stent) and uncontrolled DM. Question: how often should we be doing Pap/HPV? Thanks. 2. Recommendation(s): She should have pap/HPV cotest q 5 years until age >65 and if all normal over the past 10 y, she can exit from screening at that time. 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 She should be counseled to seek evaluation right away for any postmenopausal vaginal or uterine bleeding, given her family history, and tomodify risk factors as possible, most importantly maintain a normal weight and control her diabetes. 3. Rationale and/or evidence for recommendation: ACOG guidelines ASCCP guidelines 4. Contingency plan: Gynecology consult Ally Gruber MD This eConsult is focused on the specific [...] Center at [facility] [address] [place] [phone] Denisse Hardwick, [facility] 03/20/2024 2:00 PM EDT Clinical Support Family Medicine at [facility] [address] [place] [phone] Julia Low, [facility] 05/01/2024 11:20 AM EDT Appointment Mammography/DXA at [place] [phone] Rodney Padilla MD [address] [place] [address] 05/01/2024 1:45 PM EDT Office [place] [address] Juanpablo Hernandez MD [facility] [place] [address] 01/30/2025 1:30 PM EDT Appointment Hematology and Oncology at [place] [address] 01/30/2025 3:[address] Scan at [address] Arturo Cordero MD [facility] [place] [address] 01/30/2025 4:15 PM EDT Office Visit Hematology and Oncology at [place] [address] Arturo Cordero MD [facility] DR HEMATOLOGY [place] [address] documented as of this encounter Visit Diagnoses Diagnosis Hx of dysplasia of cervix, low grade (VALENTINO 1) Mild dysplasia of cervix Family history of uterine cancer Family history of malignant neoplasm of genital organ, other documented in this encounter Care Teams Linux Kernel Developer Relationship Specialty Start Date End Date Luis E Narayan MD [facility] [place] [address] PCP - General Family Medicine 03/26/19 01/19/22 documented as of this encounter
--- OUTSIDE RECORDS SUMMARY | 2024-03-04 21:27 | XMS_ITS | Encounter Summary ---
Author Organization [facility] Address [facility] [place] [address] Care Team Providers Care Web Applications Administrator Name Role Phone Luis E Narayan MD Primary Care Provider Reason for Visit * Consultation (Routine) - Closed Specialty Diagnoses / Procedures Referred By Gonzalez kumari Referred To Contact Sleep Center Diagnoses TITO (obstructive sleep apnea) Procedures PRG POLYLSOM 6+ YRS SLEEP W CPAP W 4+ ADDL ABHILASH Jhonny Garrett MD [facility] [place] [address] [facility] Sleep Medicine [address] [place] [address] Referral ID Status Reason Start Date Expiration Date V isits Requested Visits Authorized [id number] Closed Test Only 08/02/2019 01/30/2020 1 1 Encounter Details Date Type Department Care Team (Late st Contact Info) Description 08/13/2019 7:30 PM EST Procedure visit Sleep Center at [address] [place] [address] Jhonny Morataya MD [facility] [place] [address] TITO (obstructive sleep apnea) Social History Tobacco [...] Sign Reading Time Taken Comments Blood Pressure 141/74 08/13/2019 7:30 PM EST Pulse 70 08/13/2019 7:30 PM EST Temperature - - Respiratory Rate - - Oxygen Saturation 100% 08/13/2019 7:30 PM EST Inhaled Oxygen Concentration - - Weight 106.6 kg (235 lb) 08/13/2019 7:30 PM EST Height 160 cm (5' 3) 08/13/2019 7:30 PM EST Body Mass Index 41.63 08/13/2019 7:30 PM EST documented in this encounter Progress Notes * Jhonny Morataya MD - 08/13/2019 7:30 PM EST Images from the original note were not included. REPORT OF SPLIT-NIGHT POLYSOMNOGRAM IDENTIFYING INFORMATION Alize Gramajo : 1960 REFERRING PHYSICIAN: Dr Bonny Emanuel PRIMARY CARE PHYSICIAN: Luis E Narayan MD History Of Present Illness: Alize Gramajo is a 58 y.o. female who presents for a polysomnogram. Polysomnography: The patient's sleep was evaluated for one night at the Sleep [facility] Center. Sleep was monitored in accordance with recommended AASM guidelines. The recording also included oral/nasal airflow, chest and abdominal respiratory effort, nasal pressure, single channel EKG, intercostalEMG, bilateral tibialis EMG, and oxygen saturation (by pulse oximeter). Type of Positive Pressure Utilized: CPAP Comment: Pretreatment: - Sleep/EEG: The patient had a 9 Hz posterior dominant rhythm when awake with eyes closed. Sleep efficiency was 83%. NREM only noted pretreatment. - Respiratory: Obstructive sleep apnea of a mild degree (AHI of 3, RDI of 7) noted side NREM. Supine sleep and REM sleep in any position not noted pretreatment. CMS AHI of 0 which includes only apneas and hypopneas with 4% desaturations noted. Minimum saturation asleep of 91%. Mean saturation asleep pretreatment was 93%. - EKG: Normal sinus rhythm with no significant ectopy. Mean heart rate asleep of 65 bpm. - EMG: PLM index of 18. Treatment: - Sleep/EEG: NREM and REM sleep were noted. Sleep efficiency was 94% with treatment. - Respiratory: CPAP was titrated from a pressure of 8 cm to 13 cm. The initial pressure of 8 cm appeared to be adequate supine and side NREM as well as in REM sleep on her side aside from some visualsnoring. No pressure was able to eliminate the visual snoring from the snore channel as it was visible in NREM sleep on her side at the final pressure of 13 cm. She was briefly observed in REM sleep supine, however, obstructive hypopneas were noted. The pressure of 8 cm was the only pressure testedsupine. Saturations were maintained in the 90% range with CPAP. For the treatment period as a whole, the mean saturation asleep was 94% with a minimum of 90% during sleep with CPAP. Interfaces: F20 medium, the patient's own mask. Leak values were acceptable. - EKG: Normal sinus rhythm with no significant ectopy. Mean heart rate asleep was 59 bpm. - EMG: PLM index of 1. - Study Conditions: Head of the bed: flat with two pillows Supplemental oxygen: room air Patient noted to take Trazodone on the night of the study. - Subjective: The post sleep study questionnaire indicated the following: ...how did you sleep last night: average ..how well rested and alert do you feel right now: average Assessment: Ms. Alize Gramajo is a 58 y.o. female whose polysomnogram reveals mild obstructive sleep apnea pretreatment. She was only observed in NREM sleep on her side pretreatment. Nasal CPAP was introduced during the second portion of the night and the initial pressure of 8 cm was able to control the respiratory events in NREM sleep (side and supine) and REM sleep (side). A very brief period of REM sleep supine was observed at 8 cm and ongoing hypopneas were noted. 8 cm was the only pressure tested supine overnight. Ongoing possible visual snoring noted at most pressures including the final pressure of 13 cm. One could consider using auto CPAP 9-14 cm with the F20 medium mask. Results and recommendations relayed via my DH. Recommendations: 1. Auto CPAP at a pressure range of 9-14 cm with a F20 medium full face mask. Script to RR. 2. Follow up with Dr Morataya after 8 weeks on treatment. [facility] Sleep Disorders Center REPORT of Split-Night Polysomnography Patient Name: Alize Gramajo Study Date: 08/13/2019 Age & Sex: 58 y.o. Female Height: 5'3 Date of : 1960 Weight: 235 lbs BMI: 41.6 Referring Provider: Recording Technologist: BENNY ROTH Scoring Technologist: TRISTAN PACHECO Sleep Fellow: Sleep Specialist: Scoring Technologist Comments: ECG: Ectopy: Description of Study: Diagnostic polysomnography was performed utilizing frontal, central & occipital EEG, EOG, submentalis EMG, oronasal thermocouple, nasal pressure, ECG, thoracic and abdominalinductance plethysmography, right and left anterior tibialis EMG, snore sensor, and pulse oximetry according to AASM established guidelines. Study Details & Sleep Architecture Diagnostic Start Time (Lights Off): 21:16:39 Total Recording Time: 124.0 min Diagnostic End Time (Lights On): 23:20:40 Total Sleep Time (minutes): 103.0 Total Num. of Stage Shifts: 32 Total Sleep Time (hrs:min): 1:43.0 Total Num. of Awakenings: 5 Sleep Onset Latency: 13.5 min Total Num. of Trans. to N1: 14 Sleep Efficiency: 83.1% Total Num. of REM Periods: 0 Stage Results: Time (minutes) %TST Latency (minutes) WASO: 7.5 - - N1: 18.5 18.0 0.0 N2: 84.5 82.0 4.5 N3: 0.0 0.0 - REM: 0.0 0.0 - - (minus wake) Arousal Counts: NREM REM Total Spontaneous: 24 (14.0/hr) 0 (-/hr) 24 (14.0/hr) Sum of All Arousals: 44 (25.6/hr) 0 (-/hr) 44 (25.6/hr) Spontaneous arousals include only EEG arousals not associated with a respiratory event or PLM. Body Position: Supine Non-Supine Non-REM: 0.0 min 103.0 min REM: 0.0 min 0.0 min Total Sleep: 0.0 min (0.0%) 103.0 min (100.0%) Respiratory Events Apneas Obstructive Mixed Central Total Apneas Total Count: 0 0 0 0 Mean Duration (sec): 0 0 0 0 Longest Duration (sec): 0 0 0 - Index (REM/NREM): 0.0 / 0.0 0.0 / 0.0 0.0 / 0.0 0.0/ 0.0 Index (Sup./Non-Sup.): 0.0 / 0.0 0.0 / 0.0 0.0 / 0.0 0.0/ 0.0 Index (Total): 0.0 0.0 0.0 0.0 Hypopneas & RERAs Hypopnea Definitions: Hypopnea* [facility] Hypopnea AAS Central Hypopneas Hypopneas All RERA Total Count: 0 5 0 5 7 Mean Duration (sec): - 12.4 - 12 13.7 Longest Duration (sec): 0.0 15.7 0.0 16 17.5 Index (REM/NREM): - / 0.0 - / 2.9 -/0.0 0.0/2.9 - / 4.1 Index (Sup./Non-Sup.): - / 0.0 - / 2.9 0/0 0.0 / 2.9 0.0 / 3.4 Index (Total): 0.0 2.9 0.0 2.9 4.1 *[facility]-defined hypopneas include only hypopneas with a >=4% oxygen desaturation. Includes hypopneas with an arousal or with a 3%-4% desaturation. Periodic Breathing Total Sleep Time Time (minutes) 0.0 Time (%Sleep Time) 0.0 AHI: Includes all apneas & all hypopneas associated with an arousal or a >= 3% desaturation. Supine Non-Sup. REM NREM Total Count: 0 5 0 5 5 Index (events/hr): 0.0 2.9 0.0 2.9 AHI = 2.9 CMS AHI: Includes all apneas & only hypopneas associated with a >= 4% desaturation. Supine Non-Sup. REM NREM Total Count: 0 0 0 0 0 Index (events/hr): 0 0.0 0 0.0 CMS = 0.0 Obstructive AHI: Includes obstructive & mixed apneas as well as all hypopneas. Excludes centralapneas and RERAs. Supine Non-Sup. REM NREM Total Count: 0 5 0 5 5 Index (events/hr): 0 2.9 0.0 2.9 OAHI = 2.9 RDI: Includes all apneas, all hypopneas, all RERAs, and all ???Unsure??? events. Supine Non-Sup. REM NREM Total Count: 0 12 0.0 12.0 12 Index (events/hr): - 7.0 0.0 7.0 RDI = 7.0 Oxygen Saturation Details SpO2 Awake NREM REM All Sleep JOANA Report Sleep Mean: 94% 93% -% 93% 3% JOANA 0.0 0.0 Minimum: - 91% -% 91% 4% JOANA 0.0 0.0 SpO2 Awake (minutes) NREM (minutes) REM (minutes) All Sleep (minutes) <=90% 0.0 0.0 0.0 0.0 <=89% 0.0 0.0 0.0 0.0 <=88% 0.0 0.0 0.0 0.0 90-99% 21.0 103.0 0.0 103.0 80-89.9% 0.0 0.0 0.0 0.0 79-79.9% 0.0 0.0 0.0 0.0 60-69.9% 0.0 0.0 0.0 0.0 50-59.9% 0.0 0.0 0.0 0.0 <=50% 0.0 0.0 0.0 0.0 Cardiac Details Heart Rate (bpm) Total Study NREM REM All Sleep Minimum - 58 - 58 Maximum 84 78 - 78 Mean - 65 0 65 Limb Movement Details Periodic Limb Movements Total PLMs (and Index) PLMs w/ Arousals (and Index) Wake (after ???Lights Off???): 0 (0.0/hr) 0 (0.0/hr) NREM: 30 (17.5/hr) 7 (4.1/hr) REM: 0 (0.0/hr) 0 (-/hr) Total Sleep: 30 (17.5/hr) 7 (4.1/hr) Therapeutic Analysis Study Details & Sleep Architecture (Therapeutic Portion) Diagnostic Start Time (Lights Off): 23:25:39 Total Recording Time: 314.0 min Diagnostic End Time (Lights On): 04:39:40 Total Sleep Time (minutes): 296.5 Total Num. of Stage Shifts: 60 Total Sleep Time (hrs:min): 4:56.5 Total Num. of Awakenings: 6 Sleep Onset Latency: 0.0 min Total Num. of Trans. to N1: 22 Sleep Efficiency: 94.4% Total Num. of REM Periods: 5 Stage Results: Time (minutes) %TST Latency (minutes) WASO: 17.5 - - N1: 27.0 9.1 8.0 N2: 165.5 55.8 0.0 N3: 0.0 0.0 - REM: 104.0 35.1 36.5 35.5 (minus wake) Arousal Counts: NREM REM Total Spontaneous: 35 (10.9/hr) 12 (6.9/hr) 47 (9.5/hr) Sum of All Arousals: 38 (11.8/hr) 14 (8.1/hr) 52 (10.5/hr) Spontaneous arousals include only EEG arousals not associated with a respiratory event or PLM. Body Position: Supine Non-Supine Non-REM: 15.0 min 177.5 min REM: 0.5 min 103.5 min Total Sleep: 15.5 min (5.2%) 281.0 min (94.8%) Respiratory Events (Therapeutic Portion) Apneas Obstructive Mixed Central Total Apneas Total Count: 0 0 0 0 Mean Duration (sec): 0 0 0 0 Longest Duration (sec): 0 0 0 - Index (REM/NREM): 0.0 / 0.0 0.0 / 0.0 0.0 / 0.0 0.0/ 0.0 Index (Sup./Non-Sup.): 0.0 / 0.0 0.0 / 0.0 0.0 / 0.0 0.0/ 0.0 Index (Total): 0.0 0.0 0.0 0.0 Hypopneas & RERAs Hypopnea Definitions: Hypopnea* CMS Hypopnea AASM Central Hypopneas Hypopneas All RERA Total Count: 2 4 0 4 3 Mean Duration (sec): 18.1 17.2 - 17 15.2 Longest Duration (sec): 20.7 20.7 0.0 21 16.3 Index (REM/NREM): 1.2 / 0.0 2.3 / 0.0 0.0/0.0 2.3/0.0 0.6 / 0.6 Index (Sup./Non-Sup.): 0.0 / 0.4 3.9 / 0.6 0/0 3.9/0.6 0.0 / 0.6 Index (Total): 0.4 0.8 0.0 0.8 0.6 *CMS-defined hypopneas include only hypopneas with a >=4% oxygen desaturation. Includes hypopneas with an arousal or with a 3%-4% desaturation. Periodic Breathing Total Sleep Time Time (minutes) 0.0 Time (%Sleep Time) 0.0 AHI: Includes all apneas & all hypopneas associated with an arousal or a >= 3% desaturation. Supine Non-Sup. REM NREM Total Count: 1 3 4 0 4 Index (events/hr): 3.9 0.6 2.3 0.0 AHI = 0.8 CMS AHI: Includes all apneas & only hypopneas associated with a >= 4% desaturation. Supine Non-Sup. REM NREM Total Count: 0 2 2 0 2 Index (events/hr): 0.0 0.4 1.2 0.0 CMS = 0.4 Obstructive AHI: Includes obstructive & mixed apneas as well as all hypopneas. Excludes centralapneas and RERAs. Supine Non-Sup. REM NREM Total Count: 1 3 4 0 4 Index (events/hr): 3.9 0.6 2.3 0.0 OAHI = 0.8 RDI: Includes all apneas, all hypopneas, all RERAs, and all ???Unsure??? events. Supine Non-Sup. REM NREM Total Count: 1 6 5.0 1.9 7 Index (events/hr): 3.9 1.3 2.9 0.6 RDI = 1.4 Oxygen Saturation Details (Therapeutic Portion) SpO2 Awake NREM REM All Sleep JOANA Report Sleep Mean: 94% 94% 94% 94% 3% JOANA 1.0 1.0 Minimum: - 90% 91% 90% 4% JOANA 0.6 0.6 SpO2 Awake (minutes) NREM (minutes) REM (minutes) All Sleep (minutes) <=90% 0.0 0.0 0.0 0.0 <=89% 0.0 0.0 0.0 0.0 <=88% 0.0 0.0 0.0 0.0 90-99% 9.6 192.5 104.0 296.5 80-89.9% 0.0 0.0 0.0 0.0 79-79.9% 0.0 0.0 0.0 0.0 60-69.9% 0.0 0.0 0.0 0.0 50-59.9% 0.0 0.0 0.0 0.0 <=50% 0.0 0.0 0.0 0.0 Cardiac Details (Therapeutic Portion) Heart Rate (bpm) Total Study NREM REM All Sleep Minimum - 53 53 53 Maximum 88 75 73 75 Mean - 58 59 59 Limb Movement Details (Therapeutic Portion) Periodic Limb Movements Total PLMs (and Index) PLMs w/ Arousals (and Index) Wake (after ???Lights Off???): 0 (0.0/hr) 0 (0.0/hr) NREM: 6 (1.9/hr) 0 (0.0/hr) REM: 0 (0.0/hr) 0 (0.0/hr) Total Sleep: 6 (1.2/hr) 0 (0.0/hr) Pressure Analysis Time (hh:mm:ss) IP/EP/O2 TST Supine Non-Sup. REM Non-REM REM Sup. 8/0 03/18/0 0 0 06/20/0 /0 0:52:6.0 0:56:42.0 0:52:4.0 0:35:2.0 1:03:16.0 0:37:33.0 0:15:30.0 0:00:0.0 0:00:0.0 0:00:0.0 0:00:0.0 0:00:0.0 0:36:36.0 0:56:42.0 0:52:4.0 0:35:2.0 1:03:16.0 0:37:33.0 0:15:53.0 0:25:37.0 0:00:0.0 0:18:0.0 0:44:30.0 0:00:0.0 0:36:13.0 0:31:5.0 0:52:4.0 0:17:2.0 0:18:46.0 0:37:33.0 0:00:30.0 0:00:0.0 0:00:0.0 0:00:0.0 0:00:0.0 0:00:0.0 Respiratory Event Counts IP/EP/O2 Obstr. Ap. Mixed Ap. Central Ap. Hypopneas* RERAs 0 0 0 0 0 0 0 0 0 0 0 0 0 0 0 0 0 0 0 2 0 0 0 2 0 0 2 1 0 0 0 *Includes all types of hypopneas: those associated with arousals or >=3% desaturations. Respiratory Indices (events per hour) IP/EP/O2 OAI SANDIE JOHN HI* RDI 0 0.0 0.0 0.0 0.0 0.0 0.0 0.0 0.0 0.0 0.0 0.0 0.0 0.0 0.0 0.0 0.0 0.0 0.0 2.3 0.0 0.0 0.0 1.9 0.0 2.3 2.1 1.2 0.0 1.9 0.0 *Includes all types of hypopneas: those associated with arousals or >=3% desaturations. Respiratory Indices (events per hour) IP/EP/O2 AHI Supine Non-Sup. REM Non-REM 0 2.3 0.0 0.0 0.0 1.9 0.0 3.9 0.0 0.0 0.0 0.0 0.0 1.6 0.0 0.0 0.0 1.9 0.0 0 0 0 0 0 0 0 0 0 0 0 0 0 0 0 0 0 0 0 7.6 0.0 0.0 0.0 2.7 0.0 0.0 0.0 0.0 0.0 0.0 0.0 *Includes all types of hypopneas: those associated with arousals or >=3% desaturations. Oxygen Saturations IP/EP/O2 Minimum Mean 8/8/0 9/9/0 10/10/0 11/11/0 12/12/0 13/13/0 90 92 93 93 91 91 94 95 95 95 94 93 Graphs CPAP/Bi-Level PLMs Body Position documented in this encounter Plan of Treatment Upcoming Encounters Date Type Department Care Team (Late st Contact Info) Description 03/20/2024 9:00 AM EDT TH Visit (TeleHealth) Sleep Center at [facility] [address] [place] [address] Denisse Hardwick, [facility] 03/20/2024 2:00 PM EDT Clinical Support Family Medicine [facility] [address] [place] [address] Julia Low, [facility] 05/01/2024 11:20 AM EDT Appointment Mammography/[place] [phone] Rodney Padilla MD [address] [facility] [place] [address] 05/01/2024 1:45 PM EDT Office [place] [phone] Juanpablo Hernandez MD [facility] [place] [address] 01/30/2025 1:30 PM EDT Appointment Hematology [place] [phone] 01/30/2025 3:[address] [place] [address] Arturo Cordero MD [facility] [place] [address] 01/30/2025 4:15 PM EDT Office Visit Hematology [place] [address] Arturo Cordero MD [facility] [place] [address] documented as of this encounter Visit Diagnoses Diagnosis TITO (obstructive sleep apnea) Obstructive sleep apnea (adult) (pediatric) documented in this encounter Care Teams Web Applications Administrator Relationship Specialty Start Date End Date Luis E Narayan MD [facility] [address] [place] [address] PCP - General Family Medicine 03/26/19 01/19/22 documented as of this encounter
--- OUTSIDE RECORDS SUMMARY | 2024-03-04 21:27 | XMS_ITS | Encounter Summary ---
Author Organization [facility] [place] [address] Care Team Providers Care Label Folder Name Role Phone Luis E Narayan MD Primary Care Provider [phone]- [phone] Encounter Details Date Type Department Care Team (Late Contact Info) Description 08/28/2019 Telephone Family Medicine at [facility] [address] [place] [address] Denisse López, RN Social History Tobacco Use Types Packs/Day [...] at [facility] [address] [place] [address] Denisse Hardwick, [facility] 03/20/2024 2:00 PM EDT Clinical Support Family Medicine at [facility] [address] [place] [address] Julia Low RPH 05/01/2024 11:20 AM EDT Appointment Mammography/[place] [address] Rodney Padilla MD [address] [address] 05/01/2024 1:45 PM EDT Office Visit Ophthalmology at [place] [address] Juanpablo Hernandez MD [facility] [place] [address] 01/30/2025 1:30 PM EDT Appointment Hematology and Oncology at [place] [address] 01/30/2025 3:[address] Scan at [place] [address] Arturo Cordero MD [facility] DR HEMATOLOG[place] [address] 01/30/2025 4:15 PM EDT Office Visit Hematology and Oncology at [place] [address] Arturo Cordero MD [facility] DR HEMATOLOGY [place] [address] documented as of this encounter Visit Diagnoses Not on filedocumented in this encounter Care Teams Label Folder Relationship Specialty Start Date End Date Luis E Narayan MD [facility] [place] [address] PCP - General Family Medicine 03/26/19 01/19/22 documented as of this encounter
--- OUTSIDE RECORDS SUMMARY | 2024-03-04 21:27 | XMS_ITS | Encounter Summary ---
Author Organization [facility] Address [facility] [place] [address] Care Team Providers Care Oss Architect Name Role Phone Luis E Narayan MD Primary Care Provider [phone]- [phone] Reason for Visit * Reason Comments Follow-up Encounter Details Date Type Department Care Team (Latest Contact Info) Description 08/05/2019 10:20 AM EST Office Visit Family Medicine at [facility] [address] [place] [address] Inocencia Grigsby MD [facility] [place] [address] Bipolar affective disorder in remission; Balance problem; Cognitive changes; Cutaneous hypersensitivity Social History Tobacco Use Types Packs/Day Years [...] Sign Reading Time Taken Comments Blood Pressure 150/80 08/05/2019 10:29 AM EST Pulse 61 08/05/2019 10:29 AM EST Temperature 36.6 ??C (97.8 ??F) 08/05/2019 10:[address] Respiratory Rate 18 08/05/2019 10:29 AM EST Oxygen Saturation 98% 08/05/2019 10:29 AM EST Inhaled Oxygen Concentration - - Weight 103.4 kg (228 lb) 08/05/2019 10:29 AM EST Height 161.3 cm (5' 3.5) 08/05/2019 10:29 AM ES T Body Mass Index 39.75 08/05/2019 10:29 AM EST documented in this encounter Progress Notes * Inocencia Grigsby MD - 08/05/2019 10:20 AM EST Patient comes in scheduled for follow-up. Unfortunately I have never met her, so had no previous knowledge of her health issues. Things she wishes to talk about today are her balance issues. Apparently this is particularly bad in the evenings. She also has speech and what she believes cognitive issues since she was ill this past summer. She has not been seen by speech therapy or PT. She is being seen this afternoon by neurology for this concern. She had a echo done in June. She would like to review the results. She had a partial nephrectomy on 06/28. She since then has had left lower quadrant discomfort that she describes as skin sensitivity. There is also an area of skin that is numb. Her last HG A1c was 7.2 in June. Objective: Vitals as per chart. Appears well. The area of the skin sensitivity corresponds to the dermatome of her incisions on her left abdominal wall. She is somewhat numb in the region of the incisions and has hypersensitivity farther anteriorly along the same dermatome. This is quite superficial to light touch. Her echocardiogram was reviewed with her in detail. Other than left atrial enlargement, this was normal. A/P: 1. Balance issues and speech and cognitive issues. Suggested that she may benefit from speech therapy for the speech and cognitive and PT for the balance issues. Suggest that she discuss this further with neurology or that she request referral from her PCP. Hold off on referral for now. 2. We reviewed her echocardiogram. She is potentially at risk for atrial fibrillation, but otherwise this was a normal test. 3. We discussed her skin sensitivity. This is probably the result of superficial nerves being irritated and or cut from her surgery. It is expected to resolve. 4. Diabetes. H A1c was acceptable. No changes. 5. At her last visit lamotrigine was discussed. She had been on an up taper of this. She has been stationary at 75 mg for a while. She and her daughter agree that it is time to go to 100 mg. New prescription was written. Follow-up with Dr. Narayan, to be scheduled. documented in this encounter Plan of Treatment Upcoming Encounters Date Type Department Care Team (Late st Contact Info) Description 03/20/2024 9:00 AM EDT TH Visit (TeleHealth) Sleep Center at [facility] [address] [place] [address] Denisse Hardwick, [facility] 03/20/2024 2:00 PM EDT Clinical Support Family Medicine [facility] [address] [place] [address] Julia Low, [facility] 05/01/2024 11:20 AM EDT Appointment Mammography/DXA at [place] [phone] Rodney Padilla MD [address] [place] [address] 05/01/2024 1:45 PM EDT Office Visit Ophthalmology at [place] [phone] Juanpablo Hernandez MD [facility] [place] [address] 01/30/2025 1:30 PM EDT Appointment Hematology [place] [address] 01/30/2025 3:[address] Scan at [place] [phone] Arturo Cordero MD [facility] [place] [address] 01/30/2025 4:15 PM EDT Office Visit Hematology [place] [address] Arturo Cordero MD [facility] [place]AT[place] [address] documented as of this encounter Visit Diagnoses Diagnosis Bipolar affective disorder in remission Balance problem Other symptoms involving nervous and musculoskeletal systems Cognitive changes Other signs and symptoms involving cognition Cutaneous hypersensitivity Contact dermatitis and other eczema, due to unspecified cause documented in this encounter Care Teams Oss Architect Relationship Specialty Start Date End Date Luis E Narayan MD [facility] [address] [place] [address] PCP - General Family Medicine 03/26/19 01/19/22 documented as of this encounter
--- OUTSIDE RECORDS SUMMARY | 2024-03-04 21:27 | XMS_ITS | Encounter Summary ---
Author Organization [facility] Address [facility] [address] Care Team Providers Care Wood Drilling Machine Operator Name Role Phone Luis E Narayan MD Primary Care Provider Reason for Visit * Reason Comments Pre-[place] Exam 05/14/20 [place] [facility] [place] Ez[place] - bx of LT eye ?Cancer - when should she stop asprin & plavix prior to surgery Encounter Details Date Type Department Care Team (Late st Contact Info) Description 05/06/2020 2:20 PM EDT Office Visit Family Medicine at [facility] [address] [place] [phone] Rebecca Mcgill APRN [facility] [place] [address] Pre-op examination; Preventative health care Social History Tobacco Use Types Packs/Day Years [...] Sign Reading Time Taken Comments Blood Pressure 140/94 05/06/2020 2:22 PM EDT Pulse 79 05/06/2020 2:22 PM EDT Temperature 35.9 ??C (96.6 ??F) 05/06/2020 2:22 PM ED T Respiratory Rate 24 05/06/2020 2:22 PM EDT Oxygen Saturation 99% 05/06/2020 2:22 PM EDT Inhaled Oxygen Concentration - - Weight 113 kg (249 lb 3.2 oz) 05/06/2020 2:22 PM EDT Height 161.3 cm (5' 3.5) 05/06/2020 2:22 PM EDT Body Mass Index 43.45 05/06/2020 2:22 PM EDT documented in this encounter Progress Notes * Rebecca Mcgill, ACADEMIC DEPARTMENT CHAIR - 05/06/2020 2:20 PM EDT cc: Alize Gramajo presents at request of Dr. Hernandez for pre-operative evaluation for eye biopsy, left. Not general anesthesia. 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 Recently went into see Dr. Hernandez in Ophthalmology and they recommend Bx of this lesion in her eye,as hx of renal cancer. ROS: Personal or Fam Hx bleeding clotting disorders: none Sedation, anesthesia history: no issues in the past, but very anxious about this procedure. GEN: no chills, fevers, fatigue, weight loss EYES: no visual changes ENT: no pain, congestion, difficulty swallowing, hearing issues Dentition: normal NECK: no masses CV: no chest pain, extremity edema, palpitations, JACKSNO; METS >/= < 4 PULM: no cough, wheeze, SOB GI: no N/V/D, abd pain, constipation : no frequency, urgency, dysuria, incontinence GENITALIA: MSK: no pain, stiffness, change in activity/strength NEURO: no PEARSON, dizzy, numbness, weakness SKIN: no rashes PSYCH: no anxiety, depression Patient Active Problem List Diagnosis Code ??? 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 Altered [...] E27.8 ??? Malignant neoplasm of kidney C64.9 Social History Socioeconomic History ??? Marital status: Spouse name: None ??? Number of children: None ??? Years of education: None ??? Highest education level: None Occupational History ??? None Social Needs ??? Financial resource strain: None ??? Food insecurity Worry: None Inability: None ??? Transportation needs Medical: None Non-medical: None Tobacco Use ??? Smoking status: Current Every Day Smoker Packs/day: 1.00 Years: 40.00 Pack years: 40.00 Types: Cigarettes ??? Smokeless tobacco: Never Used Substance and Sexual Activity ??? Alcohol use: No ??? Drug use: No ??? Sexual activity: None Lifestyle ??? Physical activity Days per week: None Minutes per session: None ??? Stress: None Relationships ??? Social connections Talks on phone: None Gets together: None Attends latter day service: None Active member of club or organization: None Attends meetings of clubs or organizations: None Relationship status: None ??? Intimate partner violence Fear of current or ex partner: None Emotionally abused: None Physically abused: None Forced sexual activity: None Other Topics Concern ??? None Social History Narrative legally from spouse 2012. 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 50+ pack/ yr hx No alcohol One daughter who is a positive support Physical Exam: GEN: AAOx3, NAD EYES: PERRL, EOMI, sclera anicteric ENT: TMs nl, pharynx clear without lesions/exudate, dentition NECK: supple, no masses, no thyromegaly, no carotid bruits LYMPHATIC: nl cervical HEART: RRR S1 S2 nl, no murmurs, no pretibial edema LUNGS: CTA bilat ABD: BS nl, soft, nontender, no masses, organomegaly MSK: ROM/strength equal and nl x 4 extremities NEURO: CN II-XII nl, DTRs 2+/4+ x 4 ext, gait normal SKIN: warm, dry, no masses, lesions PSYCH: affect and interaction appropriate Assessment: 59 yo pre-operative physical exam. Risk low. Will discuss with Dr. Le the need for something to help her relax for the procedure. I can prescribe an oral benzo, but wanted to see if they had something they can give in their office. Plan: Hold ASA, Plavix, NSAIDS 7 days prior to procedure. - FluLaval Quadrivalent Vaccine W/Preservative, 6MOS+ documented in this encounter Plan of Treatment Upcoming Encounters Date Type Department Care Team (Late st Contact Info) Description 03/20/2024 9:00 AM EDT TH Visit (TeleHealth) Sleep Center at [facility] [address] [place] [phone] Denisse Hardwick, [facility] 03/20/2024 2:00 PM EDT Clinical Support Family Medicine at [facility] [address] [place] [phone] Julia Low, [facility] 05/01/2024 11:20 AM EDT Appointment Mammography/[place] [address] Rodney Padilla MD [address] [facility] [place], [place] [phone] 05/01/2024 1:45 PM EDT Office [place] [address] Juanpablo Hernandez MD [facility] [place] [address] 01/30/2025 1:30 PM EDT Appointment Hematology and Oncology at [place] [address] 01/30/2025 3:[address] Scan at [address] Arturo Cordero MD [facility] [place] [address] 01/30/2025 4:15 PM EDT Office Visit Hematology and Oncology at [place] [phone] Arturo Cordero MD [facility] [address] [place] [address] documented as of this encounter Visit Diagnoses Diagnosis Pre-op examination Preoperative examination, unspecified Preventative health care Routine general medical examination at a health care facility documented in this encounter Care Teams Wood Drilling Machine Operator Relationship Specialty Start Date End Date Luis E Narayan MD [facility] [address] [place] [address] PCP - General Family Medicine 03/26/19 01/19/22 documented as of this encounter
--- OUTSIDE RECORDS SUMMARY | 2024-03-04 21:27 | XMS_ITS | Encounter Summary ---
Author Organization [place] [address] Care Team Providers Care Features Reporter Name Role Phone Luis E Narayan MD Primary Care Provider Reason for Referral * Consultation (Routine) - Closed Specialty Diagnoses / Procedures Referred By Gonzalez kumari Referred To Contact Primary Care Diagnoses Bipolar affective disorder in remission Recurrent major depressive disorder, in remission Luis E Narayan MD [facility] [place] [address] [facility] [address] [place] [address] Referral ID Status Reason Start Date Expiration Date V isits Requested Visits Authorized [id number] Closed Specialty Service Requested 01/31/2020 01/30/2021 1 1 Reason for Visit * Reason Comments Follow-up here for a follow up re. blood tests Encounter Details Date Type Department Care Team (Late Contact Info) Description 01/31/2020 3:00 PM EDT Office Visit Family Medicine at [facility] [address] [place] [address] Luis E Narayan MD [facility] [place] [address] Bipolar affective disorder in remission; Recurrent major depressive disorder, in remission; Arthralgia, unspecified joint Social History Tobacco Use Types Packs/Day Years [...] Sign Reading Time Taken Comments Blood Pressure 144/82 01/31/2020 3:08 PM EDT man ual Pulse 74 01/31/2020 3:08 PM EDT Temperature 36.7 ??C (98 ??F) 01/31/2020 3:08 PM EDT Respiratory Rate 14 01/31/2020 3:08 PM EDT Oxygen Saturation 93% 01/31/2020 3:08 PM EDT room air Inhaled Oxygen Concentration - - Weight 110.6 kg (243 lb 12.8 oz) 01/31/2020 3:08 PM EDT Height 161.3 cm (5' 3.5) 01/31/2020 3:08 PM EDT Body Mass Index 42.51 01/31/2020 3:08 PM EDT documented in this encounter Progress Notes * Luis E Narayan MD - 01/31/2020 3:00 PM EDT Alize Gramajo is here for Chief Complaint Patient presents with ??? Follow-up here for a follow up re. blood tests Subjective HPI: Speech and cognitive changes persist, not improving, causing significant difficulty with ADLs. 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 Still has neuropsych/cognitive testing Mood - anxiety/depression are quite bad recenlty, worse than baseline. Cancer and kidney issues have been very concerning to her, appropriately. She feels like she would do better on some daily medication other than lamotrigine 100g daily (has been on that for a year or more, started by psychiatry in [place] in past. Some question of Bipolar. Feels irritable. Does counseling every week or two. Last psychoatrist was years ago. Sleep - mind racing at night, hard to sleep, trazadone 100mg does not help enough. Feels tired in the morning. Has CPAP, needs to get new mask seal. She will reach out to company. DM - Doing her metformin 1000 bid. Also statin and ACEI. Some stress eating. Arthritis - FHx RA in her father. - gets some swelling in hands ROS: See Subjective history Social History Tobacco Use ??? Smoking status: Current Every Day Smoker Packs/day: 1.00 Years: 40.00 Pack years: 40.00 Types: Cigarettes ??? Smokeless tobacco: Never Used Substance Use Topics ??? Alcohol use: No ??? Drug use: No Objective BP 144/82 Comment: manual Pulse 74 Temp 36.7 ??C (98 ??F) (Oral) Resp 14 Ht 161.3 cm (5' 3.5) Wt 110.6 kg (243 lb 12.8 oz) SpO2 93% Comment: room air BMI 42.51 kg/m?? Physical Exam Constitutional: General: She is not in acute distress. Appearance: She is well-developed. Eyes: General: No scleral icterus. Cardiovascular: Rate and Rhythm: Normal rate. Pulmonary: Effort: Pulmonary effort is normal. Skin: General: Skin is warm and dry. Neurological: Mental Status: She is alert and oriented to person, place, and time. Lab Results Component Value Date HA1C 6.9 (H) 01/13/2020 Assessment/Plan Alize was seen today for follow-up . Diagnoses and all orders for this visit: Bipolar affective disorder vs MDD/TERELL - Referral to Collaborative Care Psychiatrist (Primary Care Only) Continue meds for now Arthralgia, unspecified joint - Rheumatoid factor, quant; Future; Expected date: 01/31/2020 - DEANNA ([facility] Future; Expected date: 01/31/2020 - CRP, acute inflammation; Future; Expected date: 01/31/2020 Diabetes - controlled, cont metformin 1000mg bid documented in this encounter Plan of Treatment Upcoming Encounters Date Type Department Care Team (Late st Contact Info) Description 03/20/2024 9:00 AM EDT TH Visit (TeleHealth) Sleep Center at [facility] [address] [place] [address] Denisse Hardwick, [facility] 03/20/2024 2:00 PM EDT Clinical Support Family Medicine at [facility] [address] [place] [address] Julia Low, [facility] 05/01/2024 11:20 AM EDT Appointment Mammography/[place] [phone] Rodney Padilla MD [address] [place] [place] [address] 05/01/2024 1:45 PM EDT Office Visit Ophthalmology at [place] [phone] Juanpablo Hernandez MD [facility] [place] [address] 01/30/2025 1:30 PM EDT Appointment Hematology and Oncology at [place] [phone] 01/30/2025 3:[address] Scan at [place] [phone] Arturo Cordero MD [facility] HEMATOLOGY [place] [address] 01/30/2025 4:15 PM EDT Office Visit Hematology and Oncology at [place] [phone] Arturo Cordero MD [facility] H[place]ATOLOG[place] [address] Scheduled Referrals Name Type Priority Associated Diagnoses Order Schedule Referral to Collaborative Care Psychiatrist (Primary Care Only) Outpatient Referral Routine Bipolar affective disorder in remission Recurrent major depressive disorder, in remission Ordered: 01/31/2020 documented as of this encounter Procedures Procedure Name Priority Date/Time Associated Diagnosis Comments HC C-REACTIVE PROTEIN Routine 01/31/2020 4:07 PM EDT Arthralgia, unspecified joint HC RHEUMATOID FACTOR Routine 01/31/2020 4:07 PM EDT Arthralgia, unspecified joint HC ANTINUCLEAR ANTIBODY,SERUM Routine 01/31/2020 4:07 PM EDT Arthralgia, unspecified joint documented in this encounter Results * (ABNORMAL) CRP, acute inflammation (01/31/2020 4:07 PM EDT) C-Reactive Protein 6.0(H) <=4.9 mg/L [facility] Blood specimen (specimen) 01/31/2020 4:07 PM EDT 01/31/2020 7:06 PM EDT Narrative Resulting Agency Comment Spec In Lab Luis E Narayan MD CHEMISTRY ORDERABLE S Performing Organization Address [facility]/ZIP Co de Phone Number [facility] [place] [address] * DEANNA ([facility] (01/31/2020 4:07 PM EDT) DEANNA Neg Neg [facility] Comment:Anti-nuclear antibod ies were tested using an indirect immunofluorescent assay. Blood specimen (specimen) 01/31/2020 4:07 PM EDT 02/03/2020 7:29 AM EDT Narrative Resulting Agency Comment Spec In Lab Luis E Narayan MD LAB SEND OUT ORDERA BLES [facility] [place] [address] * Rheumatoid factor, quant (01/31/2020 4:07 PM EDT) Rheumatoid Factor <10 <=14 IU/mL [facility] Blood specimen (specimen) 01/31/2020 4:07 PM EDT 01/31/2020 7:06 PM EDT Narrative Resulting Agency Comment Spec In Lab Luis E Narayan MD CHEMISTRY ORDERABLE S [facility] [place] [address] documented in this encounter Visit Diagnoses Diagnosis Bipolar affective disorder in remission Recurrent major depressive disorder, in remission Arthralgia, unspecified joint documented in this encounter Care Teams Features Reporter Relationship Specialty Start Date End Date Luis E Narayan MD [facility] [address] [place] [address] PCP - General Family Medicine 03/26/19 01/19/22 documented as of this encounter
--- OUTSIDE RECORDS SUMMARY | 2024-03-04 21:27 | XMS_ITS | Encounter Summary ---
Author Organization [facility] Address [facility] [place] [address] Care Team Providers Care Rn Chemical Dependency Name Role Phone Luis E Narayan MD Primary Care Provider [phone]- [phone] Reason for Visit * Reason Onset Date Comments Request For Record 02/28/2020 [facility] Encounter Details Date Type Department Care Team (Late Contact Info) Description 02/28/2020 Telephone Internal Medicine at [facility] [address] [place] [phone] Denisse Hunter CCMA Request For Record ([facility]) Social History Tobacco Use Types Packs/Day Years [...] encounter Miscellaneous Notes * Telephone Encounter - Denisse Hunter CCMA - 02/28/2020 12:45 PM EDT Quick Fax sent to retrieve all Psych records was returned with a note stating: Please send a release signed by Alize. documented in this encounter Plan of Treatment Upcoming Encounters Date Type Department Care Team (Late Contact Info) Description 03/20/2024 9:00 AM EDT TH Visit (TeleHealth) Sleep Center at [facility] [address] [place] [address] Denisse Hardwick, [facility] 03/20/2024 2:00 PM EDT Clinical Support Family Medicine at [facility] [address] [place] [address] Julia Low, [facility] 05/01/2024 11:20 AM EDT Appointment Mammography/[place] [address] Rodney Padilla MD [address] [facility] [place] [address] 05/01/2024 1:45 PM EDT Office Visit Ophthalmology at [place] [phone] Juanpablo Hernandez MD [facility] [place] [address] 01/30/2025 1:30 PM EDT Appointment Hematology and Oncology at [place] [phone] 01/30/2025 3:[address] Scan at [place] [phone] Arturo Cordero MD [facility] [place] [address] 01/30/2025 4:15 PM EDT Office Visit [place]ology [place] [address] Arturo Cordero MD [facility] [place] [address] documented as of this encounter Visit Diagnoses Not on filedocumented in this encounter Care Teams Rn Chemical Dependency Relationship Specialty Start Date End Date Luis E Narayan MD [facility] [address] [address] PCP - General Family Medicine 03/26/19 01/19/22 documented as of this encounter
--- OUTSIDE RECORDS SUMMARY | 2024-03-04 21:27 | XMS_ITS | Encounter Summary ---
Author Organization [facility] Address [facility] [place] [address] Care Team Providers Care Reweaver Name Role Phone Rodney Padilla MD Primary Care Provider Reason for Visit * Reason Onset Date Comments Medication Refill 09/28/2019 Encounter Details Date Type Department Care Team (Late st Contact Info) Description 09/28/2019 Refill Family Medicine [facility] [address] [place] [phone] Luis E Narayan MD [facility] [place] [address] Social History Tobacco Use Types Packs/Day Years [...] [facility] [address] [place] [phone] Denisse Hardwick, [facility] 03/20/2024 2:00 PM EDT Clinical Support Family Medicine at [address] [place] [address] Julia Low, [facility] 05/01/2024 11:20 AM EDT Appointment Mammography/DXA at [place] [phone] Rodney Padilla MD [address] [place] [address] 05/01/2024 1:45 PM EDT Office Visit Ophthalmology at [address] Juanpablo Hernandez MD [facility] [place] [address] 01/30/2025 1:30 PM EDT Appointment Hematology and Oncology at [address] 01/30/2025 3:[address] [place] [address] Arturo Cordero MD [facility] DR [place] [address] 01/30/2025 4:15 PM EDT Office Visit Hematology and Oncology at [place] [phone] Arturo Cordero MD [facility] DR [place] [address] documented as of this encounter Visit Diagnoses Not on filedocumented in this encounter Care Teams Reweaver Relationship Specialty Start Date End Date Rodney Padilla MD [address] [place] [address] PCP - General 07/18/22 documented as of this encounter
--- OUTSIDE RECORDS SUMMARY | 2024-03-04 21:27 | XMS_ITS | Encounter Summary ---
Author Organization [facility] [place] [address] Care Team Providers Care Timber Estimator Name Role Phone Luis E Narayan MD Primary Care Provider [phone]- [phone] Encounter Details Date Type Department Care Team (Latest Contact Info) Description 07/17/2019 9:20 AM EST Laboratory Appointment Lab [address] [place] [phone] Renal mass, left Social History Tobacco Use Types Packs/Day [...] EDT TH Visit (TeleHealth) Sleep Center at [facility] [address] [place] [phone] Denisse Hardwick, [facility] 03/20/2024 2:00 PM EDT Clinical Support Family Medicine at [facility] [address] [place] [phone] Julia Low [facility] 05/01/2024 11:20 AM EDT Appointment Mammography/[place] [phone] Rodney Padilla MD [address] [place] [address] 05/01/2024 1:45 PM EDT Office Visit Ophthalmology at [place] [phone] Juanpablo Hernandez MD [facility] [place] [address] 01/30/2025 1:30 PM EDT Appointment Hematology and Oncology at [address] 01/30/2025 3:[address] Scan at [place] [phone] Arturo Cordero MD [facility] [address] [place] [address] 01/30/2025 4:15 PM EDT Office Visit [place]ematology [place] [address] Arturo Cordero MD [facility] [address] [place] [address] documented as of this encounter Procedures Procedure Name Priority Date/Time Associated Diagnosis Comments HC VENIPUNCTURE Routine 07/17/2019 9:47 AM EST Renal mass, left documented in this encounter Results * Basic Metabolic Panel (non-fasting) (07/17/2019 9:47 AM EST) Glucose 131 65 - 199 mg/dL [facility] Comment:Diabetes: >=200 mg/d L plus symptoms Blood Urea Nitrogen 17 8 - 18 mg/dL [facility] Creatinine 0.84 0.70 - 1.20 mg/dL [facility] Sodium 140 135 - 145 mmol/L [facility] Potassium 4.5 3.5 - 5.0 mmol/L [facility] Comment: Please note: ??Patients with WBC >100,000 may have falsely elevated Potassium levels. ??For accurate Potassium quantification in these patients send serum separator tube (gold top) for subsequent determinations. ??Contact the Clinical Chemistry Laboratory if there are any questions. Chloride 102 98 - 107 mmol/L [facility] Carbon Dioxide 28 22 - 31 mmol/L [facility] Anion Gap 10 5 - 15 mmol/L [facility] Calcium 10.1 8.5 - 10.5 mg/dL [facility] Est Glomerular Filtration Rate 76 >=60 mL/min/1. 73 m?? [facility] Comment: The eGFR was calculated using the CKD-EPI equation. As with all creatinine based estimates of kidney function, eGFR values calculated with the CKD-EPI equation are not accurate in patients with acute kidney failure, extremes of body mass or the acutely ill. http://[employer]/DHMCnkf eGFR 88 >=60 mL/min/1. 73 m?? [facility] Comment: The eGFR was calculated using the CKD-EPI equation. As with all creatinine based estimates of kidney function, eGFR values calculated with the CKD-EPI equation are not accurate in patients with acute kidney failure, extremes of body mass or the acutely ill. http://[employer]/DHMCnkf Blood specimen (specimen) 07/17/2019 9:47 AM EST 07/17/2019 9:56 AM EST Narrative Resulting Agency Comment Spec In Lab Avila Medina MD CHEMISTRY ORDERABLES [facility] [place] [address] documented in this encounter Visit Diagnoses Diagnosis Renal mass, left Unspecified disorder of kidney and ureter documented in this encounter Care Teams Timber Estimator Relationship Specialty Start Date End Date Luis E Narayan MD [facility] [address] [place] [address] PCP - General Family Medicine 03/26/19 01/19/22 documented as of this encounter
--- OUTSIDE RECORDS SUMMARY | 2024-03-04 21:27 | XMS_ITS | Encounter Summary ---
Author Organization [facility] Address [facility] [place] [address] Care Team Providers Care Flow Floor Attendant Name Role Phone Luis E Narayan MD Primary Care Provider Encounter Details Date Type Department Care Team (Late Contact Info) Description 02/04/2020 Telephone Sleep Center at [facility] [address] [place] [address] Christine Aponte Social History Tobacco Use Types Packs/Day Years [...] Miscellaneous Notes * Telephone Encounter - Christine Aponte - 02/04/2020 2:27 PM EDT Message left for patient to call and schedule a four month fuv with KE (around end of February). PAPI documented in this encounter Plan of Treatment Upcoming Encounters Date Type Department Care Team (Late Contact Info) Description 03/20/2024 9:00 AM EDT TH Visit (TeleHealth) Sleep Center at [facility] [address] [place] [address] Denisse Hardwick, [facility] 03/20/2024 2:00 PM EDT Clinical Support Family Medicine at [facility] [address] [place] [phone] Julia Low [facility] 05/01/2024 11:20 AM EDT Appointment Mammography[place] [address] Rodney Padilla MD [address] [place] [address] 05/01/2024 1:45 PM EDT Office Visit Ophthalmology at [place] [id number] Juanpablo Hernandez MD [facility] [place] [address] 01/30/2025 1:30 PM EDT Appointment Hematology and Oncology at [place] [phone] 01/30/2025 3:[address] Scan at [place] [phone] Arturo Cordero MD [facility] HEMAT[place] [address] 01/30/2025 4:15 PM EDT Office Visit Hematology and Oncology at [place] [phone] Arturo Cordero MD [facility] HEMATOLOG[place] [address] documented as of this encounter Visit Diagnoses Not on filedocumented in this encounter Care Teams Flow Floor Attendant Relationship Specialty Start Date End Date Luis E Narayan MD [facility] [address] [place], [place] [id number] PCP - General Family Medicine 03/26/19 01/19/22 documented as of this encounter
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
--- OUTSIDE RECORDS SUMMARY | 2024-03-04 21:27 | XMS_ITS | Encounter Summary ---
Author Organization [facility] Address [facility] [place] [address] Care Team Providers Care Child Life Assistant Name Role Phone Rodney Padilla MD Primary Care Provider Reason for Visit * Reason Onset Date Comments Medication Refill 12/24/2019 Encounter Details Date Type Department Care Team (Late st Contact Info) Description 12/24/2019 Refill Family Medicine at [facility] [address] [place] [address] Luis E Narayan MD [facility] [address] [facility] [address] Type 2 diabetes mellitus without long-term current [...] Encounter - Luis E Narayan MD - 12/25/2019 8:55 AM EDT Will refill x1 month, overdue for care gaps including DM labs. Please schedule appt and have him come in for labs prior to appt. Televisit encouraged. BP Readings from Last 3 Encounters: 12/23/19 112/82 08/13/19 141/74 08/05/19 120/72 documented in this encounter Plan of Treatment Upcoming Encounters Date Type Department Care Team (Late st Contact Info) Description 03/20/2024 9:00 AM EDT TH Visit (TeleHealth) Sleep Center at [facility] [address] [place] [phone] Denisse Hardwick, [facility] 03/20/2024 2:00 PM EDT Clinical Support Family Medicine at [facility] [address] [place] [phone] Julia Low, [facility] 05/01/2024 11:20 AM EDT Appointment Mammography/[place] [phone] Rodney Padilla MD [address] [place] [address] 05/01/2024 1:45 PM EDT Office [place] [address] Juanpablo Hernandez MD [facility] [place] [address] 01/30/2025 1:30 PM EDT Appointment [place]ematology [place] [address] 01/30/2025 3:[address] [place] [address] Arturo Cordero MD [facility] HEMATOLOGY AND ONCOLOGY [place], [place] [phone] 01/30/2025 4:15 PM EDT Office Visit Hematology [place] [address] Arturo Cordero MD [facility] HEMATOLOGY [place] [address] documented as of this encounter Results * Comprehensive metabolic panel (non-fasting) (01/13/2020 10:13 AM EDT) Glucose 156 65 - 199 mg/dL [facility] Comment:Diabetes: >=200 mg/d L plus symptoms Blood Urea Nitrogen 17 8 - 18 mg/dL [facility] Creatinine 0.86 0.70 - 1.20 mg/dL [facility] Sodium 141 135 - 145 mmol/L [facility] Potassium 4.3 3.5 - 5.0 mmol/L [facility] Comment: Please note: ??Patients with WBC >100,000 may have falsely elevated Potassium levels. ??For accurate Potassium quantification in these patients send serum separator tube (gold top) for subsequent determinations. ??Contact the Clinical Chemistry Laboratory if there are any questions. Chloride 105 98 - 107 mmol/L [facility] Carbon Dioxide 24 22 - 31 mmol/L [facility] Anion Gap 12 5 - 15 mmol/L [facility] Calcium 9.4 8.5 - 10.5 mg/dL [facility] Protein, Total 6.7 6.1 - 8.0 gm/dL [facility] Albumin 4.2 3.2 - 5.2 gm/dL [facility] Aspartate Aminotransferase 18 0 - 30 unit/L [facility] Alanine Aminotransferase 25 0 - 30 unit/L [facility] Alkaline Phosphatase 88 35 - 105 unit/L [facility] Bilirubin, Total 0.3 0.2 - 1.3 mg/dL [facility] Est Glomerular Filtration Rate 73 >=60 mL/min/1. 73 m?? [facility] Comment: The eGFR was calculated using the CKD-EPI equation. As with all creatinine based estimates of kidney function, eGFR values calculated with the CKD-EPI equation are not accurate in patients with acute kidney failure, extremes of body mass or the acutely ill. http://[employer]/[facility]nk[facility] eGFR 85 >=60 mL/min/1. 73 m?? [facility] Comment: The eGFR was calculated using the CKD-EPI equation. As with all creatinine based estimates of kidney function, eGFR values calculated with the CKD-EPI equation are not accurate in patients with acute kidney failure, extremes of body mass or the acutely ill. [email or web address]/[facility] Blood specimen (specimen) 01/13/2020 10:13 AM EDT 01/13/2020 10:22 AM EDT Narrative Resulting Agency Comment Spec In Lab Luis E Narayan MD CHEMISTRY ORDERABLE S [facility] [place] [address] * (ABNORMAL) Hemoglobin A1c (01/13/2020 10:13 AM EDT) Hemoglobin A1c 6.9(H) 4.3 - 5.6 % [facility] Comment: Reference Range: 4.3 - [...] Mellitus, Diabetes Care 2013; 36: Suppl. 1, Y67-47 Estimated Average Glucose 151 mg/dL [facility] Comment: eAG equivalents for HbA1c [...] into estimated average glucose values. ??Diabetes Care 2008:31(8):0824-9108. Blood specimen (specimen) 01/13/2020 10:13 AM EDT 01/13/2020 10:22 AM EDT Narrative Resulting Agency Comment Spec In Lab Luis E Narayan MD CHEMISTRY ORDERABLE S [facility] [place] [address] documented in this encounter Visit Diagnoses Diagnosis Type 2 diabetes mellitus without long-term current use of insulin documented in this encounter Care Teams Child Life Assistant Relationship Specialty Start Date End Date Rodney Padilla MD [address] [place] [address] PCP - General 07/18/22 documented as of this encounter
--- OUTSIDE RECORDS SUMMARY | 2024-03-04 21:27 | XMS_ITS | Encounter Summary ---
Author Organization [facility] [place] [address] Care Team Providers Care Wildlife Biology Technician Name Role Phone Luis E Narayan MD Primary Care Provider Encounter Details Date Type Department Care Team (Late st Contact Info) Description 02/19/2020 Telephone Family Medicine at [facility] [address] [place] [phone] Sofia Lorenzo Social History Tobacco Use Types Packs/Day Years [...] encounter Miscellaneous Notes * Telephone Encounter - Sofia Lorenzo - 02/21/2020 4:08 PM EDT Sent a quick fax to [facility]. [facility] [phone] requesting records * Telephone Encounter - Medhat Garcia - 02/21/2020 1:41 PM EDT Pt states she use to go to [facility]. [facility] * Telephone Encounter - Sofia Lorenzo - 02/19/2020 3:30 PM EDT LVM to see who the patients previous psychiatrist was and an address maybe so we can request records from them. * Telephone Encounter - Sofia Lorenzo - 02/19/2020 3:30 PM EDT ----- Message from Rachel Atkinson MD sent at 02/19/2020 1:03 PM EDT ----- Hi, I was just scanning this patient's chart for her upcoming appointment. I checked in scanned documents but I did not find any documentation from her previous psychiatrist (the only psychiatric note isfrom her medical hospitalization; previous PCP notes list that she has only been treated for anxiety/depression but do not mention bipolar disorder)- these may actually be helpful to have prior to the visit. Secretaries, are you able to connect w/ her to see if she has these records and can upload them to her chart through [facility] or if she knows the name of the provider so that records can be requested? Thanks -Rachel documented in this encounter Plan of Treatment Upcoming Encounters Date Type Department Care Team (Late st Contact Info) Description 03/20/2024 9:00 AM EDT TH Visit (TeleHealth) Sleep Center at [facility] [address] [place] [phone] Denisse Hardwick [facility] 03/20/2024 2:00 PM EDT Clinical Support Family Medicine at [facility] [address] [place] [phone] Julia Low, [facility] 05/01/2024 11:20 AM EDT Appointment Mammography/[place] [phone] Rondey Padilla MD [address] [place] [address] 05/01/2024 1:45 PM EDT Office Visit Ophthalmology at [place] [address] Juanpablo Hernandez MD [facility] [place] [address] 01/30/2025 1:30 PM EDT Appointment Hematology and Oncology at [place] [address] 01/30/2025 3:[address] [place] [address] Arturo Cordero MD [facility] [place] [address] 01/30/2025 4:15 PM EDT Office Visit Hematology and Oncology at [place] [phone] Arturo Cordero MD [facility] [place] [address] documented as of this encounter Visit Diagnoses Not on filedocumented in this encounter Care Teams Wildlife Biology Technician Relationship Specialty Start Date End Date Luis E Narayan MD [facility] [address] [place] [address] PCP - General Family Medicine 03/26/19 01/19/22 documented as of this encounter
--- OUTSIDE RECORDS SUMMARY | 2024-03-04 21:27 | XMS_ITS | Encounter Summary ---
Author Organization [facility] [place] [address] Care Team Providers Care Sterile Processing Tech Name Role Phone Luis E Narayan MD Primary Care Provider [phone] Reason for Visit * Reason Onset Date Comments Medication Refill 09/04/2019 Encounter Details Date Type Department Care Team (Late st Contact Info) Description 09/04/2019 Refill Family Medicine at [facility] [address] [place] [address] Bonny Emanuel MD [address] [place] [address] Social History Tobacco Use Types Packs/Day Years [...] Visit (TeleHealth) Sleep Center at [facility] [address] [place] [address] Denisse Hardwick, [facility] 03/20/2024 2:00 PM EDT Clinical Support Family Medicine at [facility] [address] [place] [address] Julia Low, [facility] 05/01/2024 11:20 AM EDT Appointment Mammography/DXA at [address] Rodney Padilla MD [address] [place] [address] 05/01/2024 1:45 PM EDT Office Visit Ophthalmology at [place] [address] Juanpablo Hernandez MD [facility] [place] [address] 01/30/2025 1:30 PM EDT Appointment Hematology and Oncology at [place] [address] 01/30/2025 3:[address] Scan at [place] [address] Arturo Cordero MD [facility] DR HEMATOLOG[place] [address] 01/30/2025 4:15 PM EDT Office Visit Hematology and Oncology at [place] [address] Arturo Cordero MD [facility] [place]OLOG[place] [address] documented as of this encounter Visit Diagnoses Not on filedocumented in this encounter Care Teams Sterile Processing Tech Relationship Specialty Start Date End Date Luis E Narayan MD [facility] [place] [address] PCP - General Family Medicine 03/26/19 01/19/22 documented as of this encounter
--- OUTSIDE RECORDS SUMMARY | 2024-03-04 21:27 | XMS_ITS | Encounter Summary ---
Author Organization [facility] [place] [address] Care Team Providers Care Fresh Foods Technician Name Role Phone Luis E Narayan MD Primary Care Provider Reason for Referral * Diagnostic Test (Routine) - Closed Specialty Diagnoses / Procedures Referred By Gonzalez t Referred To Contact Radiology Diagnoses Renal cancer, left Procedures CT Abdomen wwo Contrast Avila Medina MD [facility] [place] [address] [facility] [place] [address] Referral ID Status Reason Start Date Expiration Date V isits Requested Visits Authorized [id number] Closed Specialty Service Requested 12/30/2019 06/27/2020 1 1 Reason for Visit * Diagnostic Test (Routine) - Closed Specialty Diagnoses / Procedures Referred By Gonzalez kumari Referred To Contact Radiology Diagnoses Renal cancer, left Procedures CT Abdomen wwo Contrast Avila Medina MD [facility] [place] [address] [facility] [place] [address] Referral ID Status Reason Start Date Expiration Date V isits Requested Visits Authorized [id number] Closed Specialty Service Requested 12/30/2019 06/27/2020 1 1 Encounter Details Date Type Department Care Team (Latest Contact Info) Description 01/13/2020 10:45 AM EDT - 01/13/2020 11:59 PM EDT Hospital Encounter CT Scan at [facility] [place] [address] Avila Medina MD [facility] [place] [address] Renal cancer, left Discharge Disposition: Home Social History [...] (E.C.) Take 81 mg by mouth daily. metFORMIN (GLUCOPHAGE) 1,000 mg TabletIndications:Type 2 diabetes mellitus with hyperglycemia, without long-term current use of insulin Take 1 tablet by mouth 2 times daily (with meals). 60 tablet 12/25/2019 01/27/2020 loratadine (Claritin) 10 mg Tablet Take 1 [...] 08/05/2019 06/14/2021 fluticasone propionate (FLONASE) 50 mcg/actuation [place], Suspension 1 spray by Each Nare route [...] mouth daily. 90 tablet 4 04/09/2019 06/22/2020 budesonide-formoterol (SYMBICORT) 80-4.5 mcg/actuation HFA Aerosol Inhaler Inhale 2 puffs into the lungs 2 times daily. 1 Inhaler 11 04/09/2019 04/19/2020 losartan (COZAAR) 100 mg Tablet Take 1 tablet by mouth daily. 90 tablet 3 04/09/2019 04/28/2020 omeprazole 20 mg Tablet, Delayed Release (E.C.) [...] Visit (TeleHealth) Sleep Center at [facility] [address] [place] [phone] Denisse Hardwick [facility] 03/20/2024 2:00 PM EDT Clinical Support Family Medicine at [facility] [address] [place] [phone] Julia Low [facility] 05/01/2024 11:20 AM EDT Appointment Mammography/DXA at [place] [phone] Rodney Padilla MD [address] [place] [address] 05/01/2024 1:45 PM EDT Office Visit Ophthalmology at [place] [phone] Juanpablo Hernandez MD [facility] [place] [address] 01/30/2025 1:30 PM EDT Appointment Hematology and Oncology at [place] [address] 01/30/2025 3:[address] [place] [address] Arturo Cordero MD [facility] DR [place] [address] 01/30/2025 4:15 PM EDT Office Visit Hematology [place] [address] Arturo Cordero MD [facility] DR [place] [address] documented as of this encounter Procedures Procedure Name Priority Date/Time Associated Diagnosis Comments CT ABDOMEN WWO CONTRAST Routine 01/13/2020 11:52 AM EDT Renal cancer, left documented in this encounter Results * CT Abdomen wwo Contrast (01/13/2020 11:52 AM EDT) Anatomical Region Laterality Modality Abdomen Computed Tomogra phy Impressions 01/13/2020 12:45 PM EDT Post surgical changes in the LEFT posterior mid pole of the kidney. Normal symmetric enhancement. No evidence for local recurrence. No distant metastatic lesions. LEFT adrenal adenoma unchanged from prior imaging 03/19/2019. Thank you for letting us participate in the care of this patient. For questions regarding this report, please contact the number below. ? Narrative 01/13/2020 12:45 PM EDT EXAMINATION: CT ABDOMEN WWO CONTRAST CLINICAL HISTORY: Urologic cancer, surveillance Hx of T1a renal cancer sp partial nephrectomy Left ? recurrence TECHNIQUE: Helical CT of the abdomen was performed before and after the intravenous administration of Omnipaque 350, 115 cc. No oral contrast was given. COMPARISON: Preop exam 03/19/2019 FINDINGS: Lower chest: No pulmonary nodules lung bases. No pleural fluid. Liver: Normal size and attenuation without lesions. Bile ducts: Nondilated. Gallbladder: No calcified gallstones. Normal caliber wall. Pancreas: Normal attenuation without ductal dilatation. Spleen: Normal. Adrenal: LEFT adrenal nodule measuring approximately 1.4 cm unchanged. On unenhanced unchanged measures -3 Hounsfield units, c/w a benign adenoma. RIGHT adrenal is normal. Kidneys: Postsurgical change in the LEFT posterior mid pole the kidney. Normal enhancement. Postsurgical changes in the LEFT retroperitoneum. RIGHT kidney is symmetrically enhancing. No focal lesion. No hydronephrosis. Vasculature: No abdominal aneurysm. Diffuse mural wall calcification to the aortoiliac bifurcation. Lymph nodes: No enlarged lymph nodes. Bowel: Nondilated, no wall thickening. Peritoneum and mesentery: No ascites, free air, or loculated fluid collection. Abdominal wall: Normal. Osseous structures: No suspicious lesions. Procedure Note Shea Larose MD - 01/13/2020 EXAMINATION: CT ABDOMEN WWO CONTRAST CLINICAL HISTORY: Urologic cancer, surveillance Hx of T1a renal cancer sp partial nephrectomy Left ? recurrence TECHNIQUE: Helical CT of the abdomen was performed before and after the intravenous administration of Omnipaque 350, 115 cc. No oral contrast was given. COMPARISON: Preop exam 03/19/2019 FINDINGS: Lower chest: No pulmonary nodules lung bases. No pleural fluid. Liver: Normal size and attenuation without lesions. Bile ducts: Nondilated. Gallbladder: No calcified gallstones. Normal caliber wall. Pancreas: Normal attenuation without ductal dilatation. Spleen: Normal. Adrenal: LEFT adrenal nodule measuring approximately 1.4 cm unchanged.On unenhanced unchanged measures -3 Hounsfield units, c/w a benign adenoma.RIGHT adrenal is normal. Kidneys: Postsurgical change in the LEFT posterior mid pole the kidney.Normal enhancement. Postsurgical changes in the LEFT retroperitoneum. RIGHT kidney is symmetrically enhancing. No focal lesion. Nohydronephrosis. Vasculature: No abdominal aneurysm. Diffuse mural wall calcification tothe aortoiliac bifurcation. Lymph nodes: No enlarged lymph nodes. Bowel: Nondilated, no wall thickening. Peritoneum and mesentery: No ascites, free air, or loculated fluidcollection. Abdominal wall: Normal. Osseous structures: No suspicious lesions. IMPRESSION Post surgical changes in the LEFT posterior mid pole of the kidney.Normal symmetric enhancement. No evidence for local recurrence. No distant metastatic lesions. LEFT adrenal adenoma unchanged from prior imaging 03/19/2019. Thank you for letting us participate in the care of this patient. Forquestions regarding this report, please contact the number below. Avila Medina MD [facility] CT ORDERABLES documented in this encounter Visit Diagnoses Diagnosis Renal cancer, left documented in this encounter Administered Medications Inactive Administered Medications - up to 3 most recent administrations Medication Order MAR Action Action Date Dose Rate Site iohexoL (OMNIPAQUE) 350 mg/mL solution 0-200 mL 0-200 mL, Intravenous, ONCE PRN, 1 dose, Starting on 01/13/20 at 1130, Until Mon01/13/20 at 1152, Per Protocol, Warning Vesicant/Irritant Medication , Radiology Contrast, Routine Given 01/13/2020 11:52 AM EDT 115 mLs documented in this encounter Care Teams Fresh Foods Technician Relationship Specialty Start Date End Date Luis E Narayan MD [facility] [address] [place] [address] PCP - General Family Medicine 03/26/19 01/19/22 documented as of this encounter
--- OUTSIDE RECORDS SUMMARY | 2024-03-04 21:27 | XMS_ITS | Encounter Summary ---
Author Organization [facility] Address [facility] [place] [address] Care Team Providers Care Health Sanitarian Name Role Phone Luis E Narayan MD Primary Care Provider Reason for Referral * E-Consultation (Routine) - Specialty Diagnoses / Procedures Referred By Gonzalez kumari Referred To Contact Gynecology Diagnoses Abnormal cervical Papanicolaou smear, unspecified abnormal pap finding Family history of uterine cancer Procedures eConsult to Gynecology (Primary Care Use Only) Luis E Narayan MD [facility] [address] [place] [address] Referral ID Status Reason Start Date Expiration Date V isits Requested Visits Authorized [id number] 07/25/2019 07/24/2020 1 1 Encounter Details Date Type Department Care Team (Late st Contact Info) Description 07/25/2019 Orders Only Family Medicine at [facility] [address] [address] Luis E Narayan MD [facility] [address] [place] [address] Abnormal cervical Papanicolaou smear, unspecified abnormal pap finding; Family history of uterine cancer Social History [...] Center at [facility] [address] [place] [address] Denisse Hardwick, [facility] 03/20/2024 2:00 PM EDT Clinical Support Family Medicine at [facility] [address] [place] [address] Julia Low, [facility] 05/01/2024 11:20 AM EDT Appointment Mammography/DXA at [place] [phone] Rodney Padilla MD [address] [facility] [place], [place] [phone] 05/01/2024 1:45 PM EDT Office Visit Ophthalmology at [place] [phone] Juanpablo Hernandez MD [facility] [place] [address] 01/30/2025 1:30 PM EDT Appointment Hematology [place] [address] 01/30/2025 3:[address] Scan at [place] [phone] Arturo Cordero MD [facility] [address] [place] [address] 01/30/2025 4:15 PM EDT Office Visit Hematology [place] [address] Arturo Cordero MD [facility] HEMATOLOGY [place] [address] documented as of this encounter Visit Diagnoses Diagnosis Abnormal cervical Papanicolaou smear, unspecified abnormal pap finding Family history of uterine cancer Family history of malignant neoplasm of genital organ, other documented in this encounter Care Teams Health Sanitarian Relationship Specialty Start Date End Date Luis E Narayan MD [facility] [address] [place] [address] PCP - General Family Medicine 03/26/19 01/19/22 documented as of this encounter
--- OUTSIDE RECORDS SUMMARY | 2024-03-04 21:27 | XMS_ITS | Encounter Summary ---
Author Organization [facility] [place] [address] Care Team Providers Care Operations Tech Name Role Phone Luis E Narayan MD Primary Care Provider Reason for Referral * Psychiatric (Routine) - Specialty Diagnoses / Procedures Referred By Gonzalez kumari Referred To Contact Neuropsychology Diagnoses Cognitive and behavioral changes Amy Aguiar MD [facility] [place] [address] Referral ID Status Reason Start Date Expiration Date V isits Requested Visits Authorized [id number] Consult, Test & Treat 08/05/2019 02/01/2020 1 1 Encounter Details Date Type Department Care Team (Late st Contact Info) Description 08/05/2019 1:45 PM EST Office Visit [place] [address] Alber Spann MD [facility] [place] [address] Amy Aguiar MD [facility] [place] [address] Cognitive and behavioral changes Social History Tobacco [...] Sign Reading Time Taken Comments Blood Pressure 120/72 08/05/2019 1:52 PM EST Pulse 66 08/05/2019 1:52 PM EST Temperature 37 ??C (98.6 ??F) 08/05/2019 1:52 PM EST Respiratory Rate - - Oxygen Saturation 98% 08/05/2019 1:52 PM EST Inhaled Oxygen Concentration - - Weight 103.4 kg (228 lb) 08/05/2019 1:52 PM EST Height 161.3 cm (5' 3.5) 08/05/2019 1:52 PM EST Body Mass Index 39.75 08/05/2019 1:52 PM EST documented in this encounter Progress Notes * Amy Aguiar - 08/05/2019 1:45 PM EST Neurology Outpatient Clinic - 08/05/2019 Patient name: Alize Gramajo Date of : 1960 PCP: Luis E Narayan MD Clinic Attending: Dr. Pineda I have seen Alize Gramajo, patient of Luis E Narayan MD, at the request of Luis E Narayan for evaluation of MRI abnormaltiies Patient's CC: memory issues and numbness tingling, ? MS HPI: Alize Gramajo is a 58-year-old female with past medical history significant for hypertension, coronary artery disease status post angioplasty, asthma, GERD, hyperlipidemia, depression who presents to outpatient neuromuscular clinic for follow up visit. Interval history- Since her last visit patient was found to have left adrenal and renal masses. Sheunderwent partial Nephrectomy of left kidney and the mass was Graded as Clear Cell renal cancer andLeft adrenal mass, likely adenoma, with negative metabolic [...] sentences. Patient states she was taken to [facility] and it was initially thought that she is having a clot in her body and thus underwent echocardiograms, ultrasounds of her lower extremities and all were negative. 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 Patient states she [facility] [place] stop steroids and gave her breathing treatments. 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 She states her [...] uses inhalerswith good effect ??? Atherosclerosis of [place] coronary artery of [place] heart with angina pectoris 10/09/2007 History of [...] 27.41) performed by Avila Medina MD at [facility] MAIN OR Medications: Current Outpatient Medications on File Prior to Visit Medication Sig Dispense Refill ??? fluticasone propionate (FLONASE) 50 mcg/actuation [place], Suspension 1 spray by Each Nare route [...] by mouth daily. 90 tablet 4 ??? loratadine (CLARITIN) 10 mg Tablet Take 1 tablet by mouth daily. 90 tablet 0 ??? budesonide-formoterol (SYMBICORT) 80-4.5 mcg/actuation HFA Aerosol Inhaler Inhale 2 puffs into the lungs 2 times daily. 1 Inhaler 11 ??? metoprolol succinate (TOPROL XL) 25 mg Tablet Sustained Release 24 hr Take 1 tablet by mouth daily. 30 tablet 3 ??? losartan (COZAAR) 100 mg Tablet Take 1 tablet by mouth daily. 90 tablet 3 ??? omeprazole 20 mg Tablet, Delayed Release (E.C.) Take 1 tablet by mouth daily. 90 tablet 3 ??? traZODone (DESYREL) 100 mg Tablet Take 1 tablet by mouth nightly. 90 tablet 3 ??? fluticasone-salmeterol (ADVAIR HFA) 115-21 mcg/Actuation inhaler ??? ALBUTEROL SULFATE (PROVENTIL HFA INHL) ??? [DISCONTINUED] lamoTRIgine (LAMICTAL) 25 mg Tablet Take 3 tablets by mouth daily. 90 tablet 1 No current facility-administered medications on file prior to visit. Allergy: Allergies Allergen Reactions ??? Codeine Phosphate Nausea And Vomiting ??? Erythromycin Base Nausea Only ??? Nsaids (Non-Steroidal Anti-Inflammatory Drug) Nausea And [...] mimic interlocking hand gestures MOCA of 26 (April- ) patient had deficits in executive functioning, language, [...] and lateral aspects of feet Vibration via [employer] tuning fork (1-8): reduced at big toes Pin: reduced at dorsal aspect of feet B/L Cooled instrument: normal cool sense in bilateral MTPs Proprioception: intact at bilateral great toes Reflexes: Horner's Negative bilaterally. DTRs 2+ R, 2+ L Biceps 2+ R, 2+ L Brachioradialis 2+ R, 2+ L Triceps 2+ R, 2+ L Patellar 2+ R, 2+ L Achilles tendon Toes R down, L [...] Assessment / Plan: Alize Gramajo is a 58-year-old female with past medical history significant for hypertension, type2 diabetes mellitus, coronary artery disease status post angioplasty, asthma, GERD, hyperlipidemia,depression who presents to outpatient neuromuscular clinic for further evaluation for possible multiple sclerosis versus neuropathy. Based on history patient has multiple neurological complaints and it is hard to make a single differential out of them. We performed her MOCA test for cognition and compared with last time. There is slight improvement On it but deficiencies are still there especially in the language part of the test as well as delayed recall. Since her last visit patient was diagnosed with clear cell renal cell carcinoma and underwent left partial nephrectomy. There is also small benign mass on adrenal gland currently being evaluated by Urology. Since this diagnosis it makes us wonder whether paraneoplastic syndrome is causing these constellation of symptoms. Her speech continues to be affected with [...] did undergo reversible causes of neuropathy including B12, TSH and they were normal. Type 2 DM is most likely etiology of neuropathy. 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 Patient also complains of urinary incontinence and cognitive issues which makes a differential of normal pressure hydrocephalus, patient did have MRI of the brain and ventricles does not seem to be dilated and does not fulfill Boudreaux criteria for normal pressure hydrocephalus. Same goes for multiple sclerosis, brain MRI does reveal some white matter foci but they seem more likely suggestive of chronic small vessel ischemic changes from age, hypertension versus smoking. Psychological effects can also cause multitude of neurological complaints without any organic pathology. Patient is getting help from counselor but has not seen psychiatry but that will be diagnosis of exclusion when we get the results for below testing all negative. - Check paraneoplastic panel - check B6 and SPEP for neuropathy. HbA1C elevated at 7.2 consistent with history of Type 2 DM, normal B12, B1 and TSH - Referral to Neuropsychology testing again Seen with Neurology staff, Dr. Zana Aguiar MD Clinical Neurophysiology Fellow Pager: [phone] 08/05/2019 CC: Luis E Narayan MD, Luis E Narayan Neurology (Staff) Addendum I saw and evaluated the patient. I have reviewed the resident's history, physical examination findings, assessment and plan during the visit and I agree with the details as written, unless otherwise specified as below. Alber Spann MD documented in this encounter Miscellaneous Notes * Addendum Note - Alber Spann MD - 08/05/2019 1:45 PM ESTAddended by: ALBER SPANN on: 08/06/2019 04:09 PM Modules accepted: Level of Service documented in this encounter Plan of Treatment Upcoming Encounters Date Type Department Care Team (Late st Contact Info) Description 03/20/2024 9:00 AM EDT TH Visit (TeleHealth) Sleep Center at [facility] [address] [place] [address] Denisse Hardwick, [facility] 03/20/2024 2:00 PM EDT Clinical Support Family Medicine at [facility] [address] [place] [address] Julia Low [facility] 05/01/2024 11:20 AM EDT Appointment Mammography/DXA at [place] [phone] Rodney Padilla MD [address] [facility] [place] [id number] 05/01/2024 1:45 PM EDT Office Visit Ophthalmology at [place] [phone] Juanpablo Hernandez MD [facility] [place] [address] 01/30/2025 1:30 PM EDT Appointment Hematology and Oncology at [place] [address] 01/30/2025 3:[address] Scan at [place] [phone] Arturo Cordero MD [facility] [place] [address] 01/30/2025 4:15 PM EDT Office Visit Hematology [place] [address] Arturo Cordero MD [facility] DR HEMATOLOGY [place] [address] Scheduled Referrals Name Type Priority Associated Diagnoses Order Schedule Referral to Neuropsychology Outpatient Referral Routine Cognitive and behavioral changes Ordered: 08/05/2019 documented as of this encounter Procedures Procedure Name Priority Date/Time Associated Diagnosis Comments PARANEOPLASTIC AUTOANTIBODY EVAL, SERUM Routine 08/05/2019 3:34 PM EST [facility] VITAMIN B6 Routine 08/05/2019 3:3 4 PM EST Cognitive and behavioral changes HC SERUM PROT. ELECTROPHORESIS Routine 08/05/2019 3:34 PM EST Cognitive and behavioral changes documented in this encounter Results * Paraneoplastic Autoantibody Eval, Serum (08/05/2019 3:34 PM EST) Paraneo Eval Interpretation SEE COMMENTS [facility] Comment: No informative autoantibodies were detected in the Paraneoplastic Evaluation. However, a negative result does not exclude neurological autoimmunity with or without associated neoplasia. Sensitivity and specificity of antibody testing are enhanced by testing both serum and CSF. Test Performed by: [place] [address] Compliance Vice President: Jose G Jefferson M.D. Ph.D.; CLIA# [id number] EDITA-1 (Anti-Neuronal Nuclear Ab, Type 1) (NOVEMBER) Negative <1:240 titer [facility] Comment: Test Performed by: [facility] [place] [address] Compliance Vice President: Jose G Jefferson M.D. Ph.D.; CLIA# [id number] EDITA-2 (Anti-Neuronal Nuclear Ab,Type 2) (NOVEMBER) Negative <1:240 titer [facility] Comment: ADDITIONAL INFORMATION This test was developed and its performance characteristics determined by [facility] in a manner consistent with CLIA requirements. This test has not been cleared or approved by the U.S. Food and Drug Administration. Test Performed by: [facility] [place] [address] Compliance Vice President: Jose G Jefferson M.D. Ph.D.; CLIA# [id number] EDITA-3 (Anti-Neuronal Nuclear Ab, Type 3) (NOVEMBER) Negative <1:240 titer [facility] Comment: ADDITIONAL INFORMATION This test was developed and its performance characteristics determined by [facility] in a manner consistent with CLIA requirements. This test has not been cleared or approved by the U.S. Food and Drug Administration. Test Performed by: [facility] [place] [address] Compliance Vice President: Jose G Jefferson M.D. Ph.D.; CLIA# [id number] AGNA-1 (Anti-Glial Nuclear Ab, Type 1) (NOVEMBER) Negative <1:240 titer [facility] Comment: ADDITIONAL INFORMATION This test was developed and its performance characteristics determined by [facility] in a manner consistent with CLIA requirements. This test has not been cleared or approved by the U.S. Food and Drug Administration. Test Performed by: [facility] [place] [address] Compliance Vice President: Jose G Jefferson M.D. Ph.D.; CLIA# [id number] NOTARY PUBLIC-1 (Purkinje Cell Cytoplasmic Ab-Type 1) (NOVEMBER) Negative <1:240 titer [facility] Comment: ADDITIONAL INFORMATION This test was developed and its performance characteristics determined by [facility] in a manner consistent with CLIA requirements. This test has not been cleared or approved by the U.S. Food and Drug Administration. Test Performed by: [facility] [place] [address] Compliance Vice President: Jose G Jefferson M.D. Ph.D.; CLIA# [id number] NOTARY PUBLIC-2 (Purkinje Cell Cytoplasmic Ab-Type 2) (NOVEMBER) Negative <1:240 titer [facility] Comment: ADDITIONAL INFORMATION This test was developed and its performance characteristics determined by [facility] in a manner consistent with CLIA requirements. This test has not been cleared or approved by the U.S. Food and Drug Administration. Test Performed by: [facility] [place] [address] Compliance Vice President: Jose G Jefferson M.D. Ph.D.; CLIA# [id number] NOTARY PUBLIC-Type TR (Purkinje Cell Cytoplasmic Ab-Type Tr) (NOVEMBER) Negative <1:240 titer [facility] Comment: ADDITIONAL INFORMATION This test was developed and its performance characteristics determined by [facility] in a manner consistent with CLIA requirements. This test has not been cleared or approved by the U.S. Food and Drug Administration. Test Performed by: [facility] [place] [address] Compliance Vice President: Jose G Jefferson M.D. Ph.D.; CLIA# [id number] Amphiphysin Antibody (NOVEMBER) Negative <1:240 titer [facility] Comment: ADDITIONAL INFORMATION This test was developed and its performance characteristics determined by [facility] in a manner consistent with CLIA requirements. This test has not been cleared or approved by the U.S. Food and Drug Administration. Test Performed by: [facility] [place] [address] Compliance Vice President: Jose G Jefferson M.D. Ph.D.; CLIA# [id number] CRMP-5-IgG (NOVEMBER) Negative <1:240 titer [facility] Comment: ADDITIONAL INFORMATION This test was developed and its performance characteristics determined by [facility] in a manner consistent with CLIA requirements. This test has not been cleared or approved by the U.S. Food and Drug Administration. Test Performed by: [facility] [place] [address] Compliance Vice President: Jose G Jefferson M.D. Ph.D.; CLIA# [id number] Striated Muscle Ab Negative <1:120 titer [facility] Comment: ADDITIONAL INFORMATION This test was developed and its performance characteristics determined by [facility] in a manner consistent with CLIA requirements. This test has not been cleared or approved by the U.S. Food and Drug Administration. Test Performed by: [facility] [place] [address] Compliance Vice President: Jose G Jefferson M.D. Ph.D.; CLIA# [id number] P/Q-Type Ca Channel Ab (NOVEMBER) 0.00 <=0.02 nmol/L [facility] Comment: ADDITIONAL INFORMATION This test was developed and its performance characteristics determined by [facility] in a manner consistent with CLIA requirements. This test has not been cleared or approved by the U.S. Food and Drug Administration. Test Performed by: [facility] [place] [address] Compliance Vice President: Jose G Jefferson M.D. Ph.D.; CLIA# [id number] N-Type Ca Channel Ab 0.00 <=0.03 nmol/L [facility] Comment: ADDITIONAL INFORMATION This test was developed and its performance characteristics determined by [facility] in a manner consistent with CLIA requirements. This test has not been cleared or approved by the U.S. Food and Drug Administration. Test Performed by: [facility] [place] [address] Compliance Vice President: Jose G Jefferson M.D. Ph.D.; CLIA# [id number] AChR Gang Neuronal Ab 0.00 <=0.02 nmol/L [facility] Comment: ADDITIONAL INFORMATION This test was developed and its performance characteristics determined by [facility] in a manner consistent with CLIA requirements. This test has not been cleared or approved by the U.S. Food and Drug Administration. Test Performed by: [facility] [place] [address] Compliance Vice President: Jose G Jefferson M.D. Ph.D.; CLIA# [id number] Neuronal (V-G) K+ Channel Ab (NOVEMBER) 0.00 <=0.02 nmol/L [facility] Comment: ADDITIONAL INFORMATION This test was developed and its performance characteristics determined by [facility] in a manner consistent with CLIA requirements. This test has not been cleared or approved by the U.S. Food and Drug Administration. Test Performed by: [facility] [place] [address] Compliance Vice President: Jose G Jefferson M.D. Ph.D.; CLIA# [id number] Blood specimen (specimen) Venous Draw / Unknown 08/05/2019 3:34 PM EST 08/12/2019 9:21 AM EST Narrative Resulting Agency Comment Spec In Lab Amy Aguiar MD LAB SEND OUT ORD ERABLES [facility] [place] [address] * Vitamin B6 (08/05/2019 3:34 PM EST) [facility] Vitamin B6 (NOVEMBER) 5 5 - 50 mcg/L [facility] Comment: ADDITIONAL INFORMATION This test was developed and its performance characteristics determined by [facility] in a manner consistent with CLIA requirements. This test has not been cleared or approved by the U.S. Food and Drug Administration. Test Performed by: [facility] [address] [place] [address] Compliance Vice President: Jose G Jefferson M.D. Ph.D.; IA# [id number] Blood specimen (specimen) 08/05/2019 3:34 PM EST 08/05/2019 4:07 PM EST Narrative Resulting Agency Comment Spec In Lab Alber Spann MD LAB SEND OUT ORD ERABLES Performing Organization Address City/[facility]/ZIP Co de Phone Number [facility] [place] [address] * Protein Electrophoresis, serum (08/05/2019 3:34 PM EST) Total Prot Electrophoresis 6.6 6.1 - 8.0 gm/dL [facility] Albumin Electrophoresis 4.42 3.60 - 6.00 gm/dL [facility] Alpha 1 Globulin 0.17 0.10 - 0.30 gm/dL [facility] Alpha 2 Globulin 0.67 0.40 - 0.90 gm/dL [facility] Beta Globulin 0.70 0.50 - 1.00 gm/dL [facility] Gamma Globulin 0.65 0.50 - 1.30 gm/dL [facility] M1 Band None Detected None Detected [facility] Blood specimen (specimen) 08/05/2019 3:34 PM EST 08/05/2019 3:40 PM EST Narrative Resulting Agency Comment Spec In Lab Alber Spann MD CHEMISTRY ORDERA BLES Performing Organization Address [facility]/ZIP Co de Phone Number [facility] [place] [address] documented in this encounter Visit Diagnoses Diagnosis Cognitive and behavioral changes Other signs and symptoms involving cognition documented in this encounter Care Teams Operations Tech Relationship Specialty Start Date End Date Luis E Narayan MD [facility] [address]-[place] [address] PCP - General Family Medicine 03/26/19 01/19/22 documented as of this encounter
--- OUTSIDE RECORDS SUMMARY | 2024-03-04 21:27 | XMS_ITS | Encounter Summary ---
Author Organization [facility] [place] [address] Care Team Providers Care Production Supv Name Role Phone Luis E Narayan MD Primary Care Provider [phone] Reason for Visit * Reason Comments Procedure Encounter Details Date Type Department Care Team (Latest Contact Info) Description 07/25/2019 2:27 PM EST - 07/25/2019 11:59 PM EST Hospital En[place] [address] Cognitive and behavioral changes Discharge Disposition: Home Social History Tobacco Use [...] (E.C.) Take 81 mg by mouth daily. cyclobenzaprine (FLEXERIL) 5 mg Tablet Take 1 tablet by mouth 3 times daily as needed for Muscle spasms for up to 9 doses. 9 tablet 07/02/2019 12/23/2019 clopidogrel (PLAVIX) 75 mg Tablet Take 1 tablet by mouth daily. Restart post-operatively on 07/05 90 tablet 3 07/05/2019 09/14/2020 ondansetron (ZOFRAN) 4 mg Tablet Take 1 tablet by mouth every 8 hours as needed for Nausea. 20 tablet 07/01/2019 12/23/2019 lamoTRIgine (LAMICTAL) 25 mg TabletIndications:Bipol ar affective disorder in remission Take 3 tablets by mouth daily. 90 tablet 1 06/21/2019 08/05/2019 nicotine (NICODERM CQ) 21 mg/[address] 1 patch onto the skin daily as needed. 30 patch 11 06/13/2019 06/14/2021 metFORMIN (GLUCOPHAGE) 1,000 mg Tablet Take 1 tablet by mouth 2 times daily (with meals). 180 tablet 1 05/29/2019 12/24/2019 nitroGLYcerin (NITROSTAT) 0.4 mg Tablet, Sublingual Place 1 tablet under the tongue See Admin Instructions. 30 tablet 04/09/2019 07/05/2021 amLODIPine (NORVASC) 5 mg Tablet Take 1 tablet by mouth daily. 90 tablet 4 04/09/2019 05/25/2020 simvastatin (ZOCOR) 10 mg Tablet Take 1 tablet by mouth daily. 90 tablet 4 04/09/2019 06/22/2020 fluticasone propionate (FLONASE) 50 mcg/actuation [place], Suspension 50 sprays by Each Nare route 2 times daily. 16 g 04/09/2019 08/01/2019 loratadine (CLARITIN) 10 mg Tablet Take 1 tablet by mouth daily. 90 tablet 04/09/2019 09/04/2019 budesonide-formoterol (SYMBICORT) 80-4.5 mcg/actuation HFA Aerosol Inhaler Inhale 2 puffs into the lungs 2 times daily. 1 Inhaler 11 04/09/2019 04/19/2020 metoprolol succinate (TOPROL XL) 25 mg Tablet Sustained Release 24 hr Take 1 tablet by mouth daily. 30 tablet 3 04/09/2019 09/04/2019 losartan (COZAAR) 100 mg Tablet Take 1 tablet by mouth daily. 90 tablet 3 04/09/2019 04/28/2020 omeprazole 20 mg Tablet, Delayed Release (E.C.) Take 1 tablet by mouth daily. 90 tablet 3 04/09/2019 05/25/2020 traZODone (DESYREL) 100 mg Tablet Take 1 tablet by mouth nightly. 90 tablet 3 04/09/2019 06/25/2020 fluticasone-salmeterol (ADVAIR HFA) 115-21 mcg/Actuation inhaler 07/14/20102019 ALBUTEROL SULFATE (PROVENTIL HFA INHL) 07/14/2010 021 documented as of this encounter Procedure Notes * Nigel Garcia MD - 07/25/2019 3:00 PM ESTAssociated Order(s): EEG AWAKE, ASLEEP, DROWSY Pre-Procedure Diagnose(s): Cognitive and behavioral changes [facility] Department of Neurology Outpatient EEG Report Name of the Patient: Alize Gramajo Date of : 1960 Date of Service: 07/25/2019 Referring physician: Edwin BRIEF HISTORY: Alize Gramajo is a 58 y.o. year old patient with cognitive and behavioral changes. MEDICATIONS: Current Outpatient Medications Medication Sig Dispense Refill ??? cyclobenzaprine (FLEXERIL) 5 mg Tablet Take [...] Take 81 mg by mouth daily. ??? lamoTRIgine (LAMICTAL) 25 mg Tablet Take 3 tablets by mouth daily. 90 tablet 1 ??? [...] by mouth daily. 90 tablet 4 ??? fluticasone propionate (FLONASE) 50 mcg/actuation [place], Suspension 50 sprays by Each Nare route 2 times daily. 16 g 0 ??? loratadine (CLARITIN) 10 mg Tablet Take [...] INHL) No current facility-administered medications for this encounter. METHODS: A 21 channel digitized electroencephalogram was performed in the [facility] Clinical Neurophysiology Laboratory. The 10/20 international system of electrode placement was used and bipolar and referential electrode montages were recorded. In addition to EEG the patient was monitored for EKGand lateral/vertical eye movements. Video was recorded during the session. The duration of the recording was 25 minutes. AVIONICS ELECTRICAL ENGINEER'S REPORT: Performed by: SR Patient was not sleep deprived. Sleep was not attained. Photic stimulation was performed. Hyperventilation was performed. Effort was was adequate. Movement and other artifact was not significant. Comments: None. ELECTROENCEPHALOGRAPHER'S REPORT: Background During the awake state with the eyes closed the background consisted of a low normal amplitude, 10 Hz posterior reactive rhythm that attenuated appropriately with eye opening. Beta activity was distributed diffusely with an anterior predominance. There was a normal anterior-posterior voltage gradient. With eye opening the background activity changed to a low voltage mixture of alpha, beta, and occasional theta range frequencies. There were no significant asymmetries of background activity noted. Sleep Sleep was not obtained. Hyperventilation Hyperventilation resulted in no slowing of the background activity without appearance of abnormal activity. Photic Stimulation Photic stimulation using a step-hunter increase in photic frequency varying from 1-21 Hertz resulted in bilateral driving responses at 7-17 Hertz but no appearance of abnormal activity. Abnormal EEG Activity None EKG EKG revealed normal sinus rhythm. PRIOR EEG: Routine EEG 01/2008: Normal awake and drowsy EEG INTERPRETATION: This EEG is normal during the awake only state as well as during the activation procedures of hyperventilation and photic stimulation. CLINICAL CORRELATION: A normal EEG does not rule out epilepsy. If clinical suspicion for epilepsy remains, diagnostic yield can be increased by obtaining a prolonged recording, or a recording that includes sleep. CC: MD Nathan Ortiz MD Clinical Neurophysiology Fellow Pager: [phone] 07/26/2019 Neurology Attending I have personally reviewed the EEG, and I agree with the details as written. The above report was formulated in discussion with me at the time of EEG reading, and I agree with it as documented. Nigel Garcia MD Department of Neurology [place] [id number] Pager: [phone], #[phone] Email: [email or web address] documented in this encounter Plan of Treatment Upcoming Encounters Date Type Department Care Team (Late st Contact Info) Description 03/20/2024 9:00 AM EDT TH Visit (TeleHealth) Sleep Center at [facility] [address] [place] [address] Denisse Hardwick, [employer] [employer] [facility] 03/20/2024 2:00 PM EDT Clinical Support Family Medicine at [facility] [address] [place] [address] Julia Low [facility] 05/01/2024 11:20 AM EDT Appointment Mammography/[place] [address] Rodney Padilla MD [address] [place] [address] 05/01/2024 1:45 PM EDT Office Visit Ophthalmology at [place] [phone] Juanpablo Hernandez MD [facility] [place] [address] 01/30/2025 1:30 PM EDT Appointment Hematology and Oncology at [place] [phone] 01/30/2025 3:[address] Scan at [place] [phone] Arturo Cordero MD [facility] [place] [address] 01/30/2025 4:15 PM EDT Office Visit Hematology [place] [address] Arturo Cordero MD [facility] [place] [address] documented as of this encounter Procedures Procedure Name Priority Date/Time Associated Diagnosis Comments ZEEG AWAKE, ASLEEP, DROWSY Routine 07/25/2019 3:00 PM EST Cognitive and behavioral changes documented in this encounter Results * EEG awake, asleep, drowsy, routine (07/25/2019 3:00 PM EST) Narrative Nigel Garcia MD - 07/25/2019 3:00 PM EST Nigel Garcia MD ? 07/28/2019 10:59 PM [facility] Department of Neurology Outpatient EEG Report Name of the Patient: ??Alize Gramajo Date of : ?1960 Date of Service: ?07/25/2019 Referring physician: ?Edwin BRIEF HISTORY: Alize Gramajo is a 58 y.o. year old patient with cognitive and behavioral changes. MEDICATIONS: Current Outpatient Medications Medication Sig Dispense Refill ? ? cyclobenzaprine (FLEXERIL) 5 mg Tablet Take 1 tablet by mouth 3 times daily as needed for Muscle spasms for up to 9 doses. 9 tablet 0 ? ? clopidogrel (PLAVIX) 75 mg Tablet Take 1 tablet by mouth daily. Restart post-operatively on 07/05 90 tablet 3 ? ? ondansetron (ZOFRAN) 4 mg Tablet Take 1 tablet by mouth every 8 hours as needed for Nausea. 20 tablet 0 ? ? aspirin EC 81 mg Tablet, Delayed Release (E.C.) Take 81 mg by mouth daily. ? lamoTRIgine (LAMICTAL) 25 mg Tablet Take 3 tablets by mouth daily. 90 tablet 1 ? ? nicotine (NICODERM CQ) 21 mg/[address] 1 patch onto the skin daily as needed. 30 patch 11 ? ? metFORMIN (GLUCOPHAGE) 1,000 mg Tablet Take 1 tablet by mouth 2 times daily (with meals). 180 tablet 1 ? ? nitroGLYcerin (NITROSTAT) 0.4 mg Tablet, Sublingual Place 1 tablet under the tongue See Admin Instructions. 30 tablet 0 ? ? amLODIPine (NORVASC) 5 mg Tablet Take 1 tablet by mouth daily. 90 tablet 4 ? ? simvastatin (ZOCOR) 10 mg Tablet Take 1 tablet by mouth daily. 90 tablet 4 ? ? fluticasone propionate (FLONASE) 50 mcg/actuation [place], Suspension 50 sprays by Each Nare route 2 times daily. 16 g 0 ? ? loratadine (CLARITIN) 10 mg Tablet Take 1 tablet by mouth daily. 90 tablet 0 ? ? budesonide-formoterol (SYMBICORT) 80-4.5 mcg/actuation HFA Aerosol Inhaler Inhale 2 puffs into the lungs 2 times daily. 1 Inhaler 11 ? ? metoprolol succinate (TOPROL XL) 25 mg Tablet Sustained Release 24 hr Take 1 tablet by mouth daily. 30 tablet 3 ? ? losartan (COZAAR) 100 mg Tablet Take 1 tablet by mouth daily. 90 tablet 3 ? ? omeprazole 20 mg Tablet, Delayed Release (E.C.) Take 1 tablet by mouth daily. 90 tablet 3 ? ? traZODone (DESYREL) 100 mg Tablet Take 1 tablet by mouth nightly. 90 tablet 3 ? ? fluticasone-salmeterol (ADVAIR HFA) 115-21 mcg/Actuation inhaler ? ALBUTEROL SULFATE (PROVENTIL HFA INHL) ? No current facility-administered medications for this encounter. ?? METHODS: A 21 channel digitized electroencephalogram was performed in the [facility] Clinical Neurophysiology Laboratory. The 10/20 international system of electrode placement was used and bipolar and referential electrode montages were recorded. ??In addition to EEG the patient was monitored for EKG and lateral/vertical eye movements. Video was recorded during the session. The duration of the recording was 25 minutes. AVIONICS ELECTRICAL ENGINEER'S REPORT: Performed by: SR Patient was not sleep deprived. Sleep was not attained. Photic stimulation was performed. Hyperventilation was performed. Effort was was adequate. Movement and other artifact was not significant. Comments: ??None. ELECTROENCEPHALOGRAPHER'S REPORT: Background During the awake state with the eyes closed the background consisted of a low normal amplitude, 10 Hz posterior reactive rhythm that attenuated appropriately with eye opening. Beta activity was distributed diffusely with an anterior predominance. There was a normal anterior-posterior voltage gradient. With eye opening the background activity changed to a low voltage mixture of alpha, beta, and occasional theta range frequencies. There were no significant asymmetries of background activity noted. Sleep Sleep was not obtained. Hyperventilation Hyperventilation resulted in no slowing of the background activity without appearance of abnormal activity. Photic Stimulation Photic stimulation using a step-hunter increase in photic frequency varying from 1-21 Hertz resulted in bilateral driving responses at 7-17 Hertz but no appearance of abnormal activity. Abnormal EEG Activity None EKG EKG revealed normal sinus rhythm. PRIOR EEG: Routine EEG 01/2008: Normal awake and drowsy EEG INTERPRETATION: This EEG is normal during the awake only state as well as during the activation procedures of hyperventilation and photic stimulation. CLINICAL CORRELATION: A normal EEG does not rule out epilepsy. If clinical suspicion for epilepsy remains, diagnostic yield can be increased by obtaining a prolonged recording, or a recording that includes sleep. ?? CC: MD Nathan Ortiz MD Clinical Neurophysiology Fellow Pager: [phone] 07/26/2019 Neurology Attending I have personally reviewed the EEG, and I agree with the details as written. ?? The above report was formulated in discussion with me at the time of EEG reading, and I agree with it as documented. Nigel Garcia MD [place] [address] Pager: [phone], #[phone] Email: [email or web address] Sumit Pineda MD NEUROLOGY ORDERABLES documented in this encounter Visit Diagnoses Diagnosis Cognitive and behavioral changes Other signs and symptoms involving cognition documented in this encounter Care Teams Production Supv Relationship Specialty Start Date End Date Luis E Narayan MD [facility] [address] [place] [address] PCP - General Family Medicine 03/26/19 01/19/22 documented as of this encounter
--- OUTSIDE RECORDS SUMMARY | 2024-03-04 21:27 | XMS_ITS | Encounter Summary ---
Author Organization [facility] [address] Care Team Providers Care Line Palletizer Name Role Phone Luis E Narayan MD Primary Care Provider [phone] Encounter Details Date Type Department Care Team (Late st Contact Info) Description 05/11/2020 Telephone Family Medicine at [facility] [address] [place] [phone] Thania Flores RN Social History Tobacco Use Types Packs/Day [...] Telephone Encounter - Thania Flores RN - 05/11/2020 2:09 PM EST Call to patient. Patient identified by name and . Rebecca Mcgill APRN's message was relayed to patient. * Telephone Encounter - Thania Flores RN - 05/11/2020 2:07 PM EST ----- Message from Rebecca Mcgill APRN sent at 05/11/2020 10:05 AM EST ----- Regarding: FW: Anxiety--patient procedure Please call the patient and let them know that Dr. Hernandez replied back to me (her eye doctor), and let me know there will be sedation at her upcoming eye procedure. Thank you, Rebecca ----- Message ----- From: Juanpablo Hernandez MD Sent: 05/09/2020 8:25 AM EST To: Rebecca Mcgill APRN Subject: RE: Anxiety--patient procedure Yes if she is have surgery at the [facility] there will be sedation ----- Message ----- From: Rebecca Mcgill APRN Sent: 05/06/2020 4:29 PM EDT To: Juanpablo Hernandez MD Subject: Anxiety--patient procedure Hi Dr. Hernandez, This patient visited today for a pre-op. She is very anxious about the procedure, bx you will be doing. Does your office have anything they give in sedation to relax her. If not, I can prescribe an oral benzo. I just didn't know if you give something in the office for eye procedures like the one you have planned for her. Thank you, Rebecca Mcgill APRN documented in this encounter Plan of Treatment Upcoming Encounters Date Type Department Care Team (Late st Contact Info) Description 03/20/2024 9:00 AM EDT TH Visit (TeleHealth) Sleep Center at [facility] [address] [place] [address] Denisse Hardwick, [facility] 03/20/2024 2:00 PM EDT Clinical Support Family Medicine at [facility] [address] [place] [phone] Julia Low [facility] 05/01/2024 11:20 AM EDT Appointment Mammography/[place] [phone] Rodney Padilla MD [address] [place] [place] [address] 05/01/2024 1:45 PM EDT Office Visit Ophthalmology at [place] [phone] Juanpablo Hernandez MD [facility] [place] [address] 01/30/2025 1:30 PM EDT Appointment Hematology and Oncology at [place] [address] 01/30/2025 3:[address] [place] [address] Arturo Cordero MD [facility] HEMATOLOGY [place] [address] 01/30/2025 4:15 PM EDT Office Visit Hematology and Oncology at [place] [phone] Arturo Cordero MD [facility] [address] HEMATOLOGY [place] [address] documented as of this encounter Visit Diagnoses Not on filedocumented in this encounter Care Teams Line Palletizer Relationship Specialty Start Date End Date Luis E Narayan MD [facility] [address] [address] PCP - General Family Medicine 03/26/19 01/19/22 documented as of this encounter
--- OUTSIDE RECORDS SUMMARY | 2024-03-04 21:27 | XMS_ITS | Encounter Summary ---
Author Organization [facility] [place] [address] Care Team Providers Care Barrel Raiser Helper Name Role Phone Luis E Narayan MD Primary Care Provider [phone] Reason for Visit * Reason Onset Date Comments Medication Refill 04/28/2020 Encounter Details Date Type Department Care Team (Late st Contact Info) Description 04/28/2020 Refill Family Medicine at [facility] [address] [place] [address] Bonny Emanuel MD [address] [place] [address] Social History Tobacco Use Types Packs/Day Years [...] [facility] [address] [place] [address] Denisse Hardwick, [employer] [facility] 03/20/2024 2:00 PM EDT Clinical Support Family Medicine at [facility] [address] [place] [address] Julia Low, [facility] 05/01/2024 11:20 AM EDT Appointment Mammography/DXA at [address] Rodney Padilla MD [address] [place] [address] 05/01/2024 1:45 PM EDT Office Visit Ophthalmology at [place] [address] Juanpablo Hernandez MD [facility] [place] [place] [address] 01/30/2025 1:30 PM EDT Appointment Hematology and Oncology at [place] [address] 01/30/2025 3:[address] Scan at [place] [address] Arturo Cordero MD [facility] [address] [place] [address] 01/30/2025 4:15 PM EDT Office Visit Hematology and Oncology at [place] [address] Arturo Cordero MD [facility] [place] [address] documented as of this encounter Visit Diagnoses Not on filedocumented in this encounter Care Teams Barrel Raiser Helper Relationship Specialty Start Date End Date Luis E Narayan MD [facility] [place] [address] PCP - General Family Medicine 03/26/19 01/19/22 documented as of this encounter
--- OUTSIDE RECORDS SUMMARY | 2024-03-04 21:27 | XMS_ITS | Encounter Summary ---
Author Organization [facility] [place] [address] Care Team Providers Care Bicycle Mechanic Name Role Phone Luis E Narayan MD Primary Care Provider [phone] Reason for Visit * Reason Onset Date Comments Medication Refill 04/19/2020 Encounter Details Date Type Department Care Team (Late st Contact Info) Description 04/19/2020 Refill Family Medicine at [facility] [address] [place] [address] Bonny Emanuel MD [address] [place] [address] Social History Tobacco Use Types Packs/Day Years [...] EDT TH Visit (TeleHealth) Sleep Center at [facility] [address] [place] [address] Denisse Hardwick, [facility] [facility] [facility] 03/20/2024 2:00 PM EDT Clinical Support Family Medicine [facility] [address] [place] [address] Julia Low, [facility] 05/01/2024 11:20 AM EDT Appointment Mammography/DXA at [address] Rodney Padilla MD [address] [place] [address] 05/01/2024 1:45 PM EDT Office Visit Ophthalmology at [place] [address] Juanpablo Hernandez MD [facility] [place] [address] 01/30/2025 1:30 PM EDT Appointment Hematology and Oncology at [place] [address] 01/30/2025 3:[address] Scan at [place] [address] Arturo Cordero MD [facility] [address] [place] [address] 01/30/2025 4:15 PM EDT Office Visit Hematology and Oncology at [place] [address] Arturo Cordero MD [facility] [place] [address] documented as of this encounter Visit Diagnoses Not on filedocumented in this encounter Care Teams Bicycle Mechanic Relationship Specialty Start Date End Date Luis E Narayan MD [facility] [place] [address] PCP - General Family Medicine 03/26/19 01/19/22 documented as of this encounter
--- OUTSIDE RECORDS SUMMARY | 2024-03-04 21:27 | XMS_ITS | Encounter Summary ---
Author Organization [facility] Address [facility] [place] [address] Care Team Providers Care Instructor Watch Assembly Name Role Phone Luis E Narayan MD Primary Care Provider Encounter Details Date Type Department Care Team (Latest Contact Info) Description 01/13/2020 9:45 AM EDT - 01/13/2020 10:44 AM EDT Hospital Encounter XRay at [address] [place] [address] Avila Medina MD [facility] [place] [address] Renal cancer, left Discharge Disposition: Home Social [...] 08/05/2019 06/14/2021 fluticasone propionate (FLONASE) 50 mcg/actuation Carrie, Suspension 1 spray by Each Nare route [...] Center at [facility] [address] [place] [address] Denisse Hardwick, [facility] 03/20/2024 2:00 PM EDT Clinical Support Family Medicine at [facility] [address] [place] [address] Julia Low, [facility] 05/01/2024 11:20 AM EDT Appointment Mammography/DXA at [place] [phone] Rodney Padilla MD [address] [facility] [place], [place] [phone] 05/01/2024 1:45 PM EDT Office Visit Ophthalmology at [place] [phone] Juanpablo Hernandez MD [facility] [place] [place] [address] 01/30/2025 1:30 PM EDT Appointment [place]ematology [place] [address] 01/30/2025 3:[address] [place] [address] Arturo Cordero MD [facility] DR [place] [address] 01/30/2025 4:15 PM EDT Office Visit Hematology [place] [address] Arturo Cordero MD [facility] DR [place] [address] documented as of this encounter Procedures Procedure Name Priority Date/Time Associated Diagnosis Comments XR CHEST PA AND LATERAL Routine 01/13/2020 10:02 AM EDT Renal cancer, left documented in this encounter Results * XR Chest PA & Lateral (Generic) (01/13/2020 10:02 AM EDT) Anatomical Region Laterality Modality Chest N/A Digital Radiogra phy Impressions 01/13/2020 11:12 AM EDT No acute cardiopulmonary process. No radiographically evident pulmonary nodules/metastases. I have personally reviewed the image(s) and the resident's interpretation and agree with the findings, Nakia Goetz at 01/13/2020 11:12 AM Thank you for letting us participate in the care of this patient. For questions regarding this report, please contact the number below. ? Narrative 01/13/2020 11:12 AM EDT EXAMINATION: XR CHEST PA AND LATERAL (GENERIC) CLINICAL HISTORY: Hx of renal cancer ? new lung nodules TECHNIQUE: Standing PA and lateral views of the chest COMPARISON: PA and lateral chest radiographs 06/27/2019 FINDINGS: The lungs are clear. No radiographically appreciable pulmonary nodule. The cardiomediastinal silhouette is normal. There is no pneumothorax or pleural effusion. ??No visualized acute osseous abnormality. Procedure Note Nakia Goetz MD - 01/13/2020 EXAMINATION: XR CHEST PA AND LATERAL (GENERIC) CLINICAL HISTORY: Hx of renal cancer ? new lung nodules TECHNIQUE: Standing PA and lateral views of the chest COMPARISON: PA and lateral chest radiographs 06/27/2019 FINDINGS: The lungs are clear. No radiographically appreciable pulmonary nodule.The cardiomediastinal silhouette is normal. There is no pneumothorax orpleural effusion. No visualized acute osseous abnormality. IMPRESSION No acute cardiopulmonary process. No radiographically evident pulmonary nodules/metastases. I have personally reviewed the image(s) and the resident's interpretationand agree with the findings, Nakia Goetz at 01/13/2020 11:12 AM Thank you for letting us participate in the care of this patient. Forquestions regarding this report, please contact the number below. Avila Medina MD IMG DX ORDERABLES documented in this encounter Visit Diagnoses Diagnosis Renal cancer, left documented in this encounter Care Teams Instructor Watch Assembly Relationship Specialty Start Date End Date Luis E Narayan MD [facility] [place] [address] PCP - General Family Medicine 03/26/19 01/19/22 documented as of this encounter
--- OUTSIDE RECORDS SUMMARY | 2024-03-04 21:27 | XMS_ITS | Encounter Summary ---
Author Organization [facility] [place] [address] Care Team Providers Care Key Account Coordinator Name Role Phone uLis E Narayan MD Primary Care Provider Reason for Visit * Reason Onset Date Comments New Medication Request 02/21/2020 Encounter Details Date Type Department Care Team (Late st Contact Info) Description 02/21/2020 Telephone Family Medicine at [facility] [address] [place] [address] Medhat Phillips New Medication Request Social History Tobacco Use Types Packs/Day Years [...] encounter Miscellaneous Notes * Telephone Encounter - Rachel Atkinson MD - 02/21/2020 2:12 PM EDT I called and spoke w/ patient. I reviewed treatment recommendations and potential medication options and a/e w/ patient. I did relay that prescribing will be through PCP. I reminded Alize to touch base w/ [facility] about seeking medication management there; if she is not able to access those services, PCP and I can work to connect her w/ our medication management clinic in 5D. * Telephone Encounter - Medhat Garcia - 02/21/2020 1:38 PM EDT Message: Pt calling states Dr. Atkinson was going to send new medication for her? Please call back todiscuss, states the end of the appt her phone Ask caller their first and last name and relationship to the patient: Alize Best time to call back: Later- she would like to take a nap Ok to leave a message:yes Ok to send my- message: n Offered Appointment: n MA/Nurse/Strategic Procurement Manager contacted via: Message: y Call: n Pager: n documented in this encounter Plan of Treatment Upcoming Encounters Date Type Department Care Team (Late st Contact Info) Description 03/20/2024 9:00 AM EDT TH Visit (TeleHealth) Sleep Center at [facility] [address] [place] [phone] Denisse Hardwick, [facility] 03/20/2024 2:00 PM EDT Clinical Support Family Medicine at [facility] [address] [place] [phone] Julia Low, [facility] 05/01/2024 11:20 AM EDT Appointment Mammography/[place] [phone] Rodney Padilla MD [address] [facility] [place] [address] 05/01/2024 1:45 PM EDT Office [place] [address] Juanpablo Hernandez MD [facility] [place] [address] 01/30/2025 1:30 PM EDT Appointment Hematology [place] [address] 01/30/2025 3:[address] [place] [address] Arturo Cordero MD [facility] DR HEMATOLOGY [place] [address] 01/30/2025 4:15 PM EDT Office Visit Hematology [place] [address] Arturo Cordero MD [facility] DR HEMATOLOGY [place] [address] documented as of this encounter Visit Diagnoses Not on filedocumented in this encounter Care Teams Key Account Coordinator Relationship Specialty Start Date End Date Luis E Narayan MD [facility] [address] [place] [address] PCP - General Family Medicine 03/26/19 01/19/22 documented as of this encounter
--- OUTSIDE RECORDS SUMMARY | 2024-03-04 21:27 | XMS_ITS | Encounter Summary ---
Author Organization [facility] [place] [address] Care Team Providers Care Production Checker Name Role Phone Luis E Narayan MD Primary Care Provider Encounter Details Date Type Department Care Team (Late st Contact Info) Description 10/23/2019 [place] [address] Amy Aguiar MD [facility] [place] [address] Social History Tobacco Use Types Packs/Day Years [...] encounter Miscellaneous Notes * Telephone Encounter - Jackie Palomo Chelsea - 10/23/2019 11:[address] Aguiar has requested that the Last Cancelled Neurology visit be rescheduled into a virtual visit. If patient agrees to this virtual visit after answering technology assessment questions, please addnote to this encounter documenting agreement and cancel and reschedule appointment as noted below. * Change Length of Visit to match currently scheduled visit length First Preference: Telephone (TOV) Second Preference: N/A If a Telephone Office Visit is scheduled, please advise patient that they should be hearing from someone in the Neurology department a day prior to their appointment to review some clinical information in preparation for their visit with the provider the following day and to remove any filter for receiving calls from blocked numbers. If patient declines Telehealth appointment: - Cancel appointment - Document patient declined in this encounter - Sign encounter and forward to Provider listed above documented in this encounter Plan of Treatment Upcoming Encounters Date Type Department Care Team (Late st Contact Info) Description 03/20/2024 9:00 AM EDT TH Visit (TeleHealth) Sleep Center at [facility] [address] [place] [address] Denisse Hardwick, [facility] 03/20/2024 2:00 PM EDT Clinical Support Family Medicine at [facility] [address] [place] [address] Julia Low, [facility] 05/01/2024 11:20 AM EDT Appointment Mammography/[place] [address] Rodney Padilla MD [address] [facility] [place] [address] 05/01/2024 1:45 PM EDT Office [place] [address] Juanpablo Hernandez MD [facility] [place] [address] 01/30/2025 1:30 PM EDT Appointment Hematology [place] [address] 01/30/2025 3:[address] [place] [address] Arturo Cordero MD [facility] [address] [place] [address] 01/30/2025 4:15 PM EDT Office Visit Hematology [place] [address] Arturo Cordero MD [facility] [place] [address] documented as of this encounter Visit Diagnoses Not on filedocumented in this encounter Care Teams Production Checker Relationship Specialty Start Date End Date Luis E Narayan MD [facility] [address] [place] [address] PCP - General Family Medicine 03/26/19 01/19/22 documented as of this encounter
--- OUTSIDE RECORDS SUMMARY | 2024-03-04 21:27 | XMS_ITS | Encounter Summary ---
Author Organization [facility] [place] [address] Care Team Providers Care Cloth Mercerizer Operator Name Role Phone Luis E Narayan MD Primary Care Provider [phone] Reason for Visit * Consultation (Routine) - Closed Specialty Diagnoses / Procedures Referred By Gonzalez kumari Referred To Contact Ophthalmology Diagnoses amyloid pterygium os Moiz Ontiveros, OD [address] [place] [address] Juanpablo Hernandez MD [facility] [place] [address] Referral ID Status Reason Start Date Expiration Date V isits Requested Visits Authorized [id number] Closed Consult, Test & Treat PCP Updated and/or Approved 06/13/2019 06/12/2020 1 1 Encounter Details Date Type Department Care Team (Latest Contact Info) Description 03/31/2020 10:00 AM EDT Office [place] [address] Juanpablo Hernandez MD [facility] OPHTHALMOLOGY [place], [place] [phone] Diabetic polyneuropathy associated with type 2 diabetes mellitus; Benign tumor of conjunctiva, left Social History Tobacco Use [...] * Patient Instructions* Juanpablo Hernandez MD - 03/31/2020 10:00 AM EDT Medications: Use eye medications as instructed [...] Progress Notes * Juanpablo Hernandez MD - 03/31/2020 10:00 AM EDT Encounter Diagnosis Name Primary? Diabetic polyneuropathy associated with type 2 diabetes mellitus Alize Gramajo is a 59 y.o. 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 No personal history of melanoma, but lots of other cancer in her family, current smoker DDx: Melanoma, KISHA, met, atypical pterygium Discussed r/b/a to excision with cryo and excision and possible amniotic membrane transplantation. She elects surgery. She understands the procedure is for diagnosis and we discussed possible limbal stem cell failure due to extensive lesion but the importance of making a tissue diagnosis. Offered 2nd opinion, but she declined. Spoke with daughter Gia Gramajo over the phone and discussed diagnosis, surgical plans and post op care. She expressed appreciation. She also indicated that this lesion has been present for years. She will help with after care. Photos obtained Mild cataract: 20/20 ou NIDDM with A1C of 6.9: no retinopathy seen Current smoker but denies orthopnea Plan: - as above - Follow up for surgery OS or as needed, Notes to Dr Ontiveros - Findings and concerns discussed with Alize and she expressed understanding. -Upon Return IOP MR if vision down by 2 lines compared to last visit Forward this to Brenda Man/Paulina Tapia to make sure amniotic membrane available at the operation documented in this encounter Miscellaneous Notes * Addendum Note - Juanpablo Hernandez MD - 03/31/2020 10:00 AM EDTAddended by: JUANPABLO HERNANDEZ on: 04/03/2020 05:11 PM Modules accepted: SmartSet documented in this encounter Plan of Treatment Upcoming Encounters Date Type Department Care Team (Late st Contact Info) Description 03/20/2024 9:00 AM EDT TH Visit (TeleHealth) Sleep Center at [facility] [address] [place] [address] Denisse Hardwick, [facility] 03/20/2024 2:00 PM EDT Clinical Support [facility] [address] [place] [phone] Julia Low, [facility] 05/01/2024 11:20 AM EDT Appointment Mammography/[place] [address] Rodney Padilla MD [address] [facility] [place], [place] [phone] 05/01/2024 1:45 PM EDT Office [place] [address] Juanpablo Hernandez MD [facility] [address] 01/30/2025 1:30 PM EDT Appointment Hematology [place] [address] 01/30/2025 3:[address] [place] [address] Arturo Cordero MD [facility] DR HEMATOLOGY AND ONCOLOGY [place], [place] [address] 01/30/2025 4:15 PM EDT Office Visit Hematology [place] [address] Arturo Cordero MD [facility] DR HEMATOLOGY AND ONCOLOGY [place], [place] [phone] documented as of this encounter Procedures Procedure Name Priority Date/Time Associated Diagnosis Comments PHOTO SLITLAMP - OS - LEFT EYE Routine 03/31/2020 11:00 AM EDT Benign tumor of conjunctiva, left documented in this encounter Results * Photo Slitlamp - OS - Left Eye (03/31/2020 11:00 AM EDT) Anatomical Region Laterality Modality Other Narrative 03/31/2020 11:00 AM EDT Indication: baseline documentation OD: wnl with ping OS: pigmented vascular lesion at limbus from 2 to 7 o'clock with extension onto cornea of 1-2 mm large dilated vessel inferiorly - post dilation drops so appears less vascular than prior to drops Implication: Limbal tumor OS with pigment. Possible melanoma Juanpablo Hernandez MD [facility] ORDERABLES documented in this encounter Visit Diagnoses Diagnosis Diabetic polyneuropathy associated with type 2 diabetes mellitus Benign tumor of conjunctiva, left documented in this encounter Care Teams Cloth Mercerizer Operator Relationship Specialty Start Date End Date Luis E Narayan MD [facility] [address] [facility] [place], [place] [phone] PCP - General Family Medicine 03/26/19 01/19/22 documented as of this encounter
--- OUTSIDE RECORDS SUMMARY | 2024-03-04 21:27 | XMS_ITS | Encounter Summary ---
Author Organization [facility] [place] [address] Care Team Providers Care Mold Filling Operator Name Role Phone Luis E Narayan MD Primary Care Provider Reason for Visit * Reason Onset Date Comments Bumped Appointment 11/19/2019 Encounter Details Date Type Department Care Team (Late st Contact Info) Description 11/19/2019 [place] [address] Juanpablo Hernandez MD [facility] [place] [address] Bumped Appointment Social History Tobacco Use Types Packs/Day [...] encounter Miscellaneous Notes * Telephone Encounter - Yuli Murillo - 11/19/2019 11:04 AM EDT Patient Scheduled * Telephone Encounter - Chantell Dukes - 11/19/2019 10:07 AM EDT LMOAM x 1 to reschedule 11/[address] Hernandez. Please reschedule to next available and put as ahigh priority on the waitlist documented in this encounter Plan of Treatment Upcoming Encounters Date Type Department Care Team (Late st Contact Info) Description 03/20/2024 9:00 AM EDT TH Visit (TeleHealth) Sleep Center at [facility] [address] [place] [address] Denisse Hardwick, [facility] 03/20/2024 2:00 PM EDT Clinical Support Family Medicine [facility] [address] [place] [address] Julia Low, [facility] 05/01/2024 11:20 AM EDT Appointment Mammography/DXA at [place] [phone] Rodney Padilla MD [address] [facility] [place], [place] [phone] 05/01/2024 1:45 PM EDT Office Visit Ophthalmology at [place] [phone] Juanpablo Hernandez MD [facility] [place] [address] 01/30/2025 1:30 PM EDT Appointment Hematology [place] [address] 01/30/2025 3:[address] Scan at [place] [phone] Arturo Cordero MD [facility] [place] [address] 01/30/2025 4:15 PM EDT Office Visit [place]ematology [place] [address] Arturo Cordero MD [facility] HEMATOLOGY [place] [address] documented as of this encounter Visit Diagnoses Not on filedocumented in this encounter Care Teams Mold Filling Operator Relationship Specialty Start Date End Date Luis E Narayan MD [facility] [address] [place] [address] PCP - General Family Medicine 03/26/19 01/19/22 documented as of this encounter
--- OUTSIDE RECORDS SUMMARY | 2024-03-04 21:27 | XMS_ITS | Encounter Summary ---
Author Organization [facility] Address [facility] [place] [address] Care Team Providers Care Medical Chemist Name Role Phone Luis E Narayan MD Primary Care Provider [phone] Encounter Details Date Type Department Care Team (Late st Contact Info) Description 01/13/2020 1:00 PM EDT [place] [address] Avila Medina MD [facility] [place] [address] Malignant neoplasm of kidney, unspecified laterality; Adrenal mass; OAB (overactive bladder); Anxiety Social History Tobacco Use Types Packs/Day Years [...] Sign Reading Time Taken Comments Blood Pressure 128/76 01/13/2020 12:56 PM EDT Pulse 57 01/13/2020 12:56 PM EDT Temperature - - Respiratory Rate - - Oxygen Saturation - - Inhaled Oxygen Concentration - - Weight - - Height - - Body Mass Index - - documented in this encounter Progress Notes * Aleisha York APRN - 01/13/2020 1:00 PM EDT Patient Name: Alize Gramajo Date of Service: 01/13/2020 Primary Care Provider: Luis E Narayan MD Reason for Visit: Alize Gramajo is a 59 y.o. female who on had a Left robot assited partial nephrectomy for a [id number] Grade 3 clear cell cancer. All surgical margins were negative. Warm ischemia time was 16 minutes 45 seconds. Following the surgery she did well and was discharged to home on 07/01/2019. She returns for followup today. The patient has done well since the surgery. Appetite is good. Pain is well controlled. There is no problems with the bowels. Voiding well. No hematuria. She is here today for follow up. She has some anxiety and depression, starting after the surgery. She worries about dying like her brother (had cancer and last January,). She is seeing a therapist to discuss this. She has hadother health issues in the past year as well. She will see her PCP soon. No hematuria or voiding issues. She does have some frequency at times. No dysuria. She feels she empties ok. She has 1-2 cups of coffee, no juice. 1 diet soda per day. Minimal water-2 or so glasses. No recent UTIs. She leaks with urgency when full, and with coughing laughing and sneezing per daughter, not per pt. 1 brief per day. She prefers to defer med. No weight loss or appetite change. No new back or bone pain. Patient Active Problem List Diagnosis Code ??? 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 Altered [...] severe I51.7 ??? Renal mass, left N28.89 Examination: Appears well, NAD The abdomen is benign. The incisions are well healed. Labs: 07/17/2019 Cr 0.84, eGFR 76 01/2020: cre 0.86, LFTs normal and GFR 73 PVR: 01/2020: 65 cc with scanner Xrays: 01/2020: CXR: negative 01/2020: CT abd: imaging reviewed. No concerns. Per report: IMPRESSION Post surgical changes in the LEFT posterior mid pole of the kidney. Normal symmetric enhancement. No evidence for local recurrence. No distant metastatic lesions. LEFT adrenal adenoma unchanged from prior imaging 03/19/2019. Imp: [id number] Grade 3 Clear Cell renal cancer sp partial nephrectomy. no evidence of disease Left adrenal mass, likely adenoma, negative metabolic w/u Stress/anxiety OAB, mild ANDREI ( pt denies ANDREI) Plan: We again discussed her pathology in detail, given her concern about cancer recurrence. She is seeing a therapist to manage her anxiety/depression. I discussed the risks of tumor recurrence which are <20%. There is no indicated adjuvant therapy. At this time, given her imaging, she will continue with follow up in 1 year with cmp/CXR and CT abd We discussed her urinary symptoms/urge incontinence. She will monitor. She does not want to consider a med now. We discussed bladder irritants, timed voiding, hydration with water. She will monitor and we can consider therapies if her symptoms worsen. She empties well. Pt and daughter content with plan. Aleisha Floyd APRN documented in this encounter Plan of Treatment Upcoming Encounters Date Type Department Care Team (Late st Contact Info) Description 03/20/2024 9:00 AM EDT TH Visit (TeleHealth) Sleep Center at [facility] [address] [place] [address] Denisse Hardwick, [facility] 03/20/2024 2:00 PM EDT Clinical Support Family Medicine at [facility] [address] [place] [address] Julia Low [facility] 05/01/2024 11:20 AM EDT Appointment Mammography/DXA at [place] [phone] Rodney Padilla MD [address] [facility] [place] [address] 05/01/2024 1:45 PM EDT Office Visit Ophthalmology at [place] [phone] Juanpablo Hernandez MD [facility] [place] [address] 01/30/2025 1:30 PM EDT Appointment Hematology and Oncology at [place] [phone] 01/30/2025 3:[address] Scan at [place] [phone] Arturo Cordero MD [facility] DR [place] [address] 01/30/2025 4:15 PM EDT Office Visit Hematology [place] [phone] Arturo Cordero MD [facility] [place] [address] documented as of this encounter Visit Diagnoses Diagnosis Malignant neoplasm of kidney, unspecified laterality Adrenal mass Unspecified disorder of adrenal glands OAB (overactive bladder) Hypertonicity of bladder Anxiety Anxiety state, unspecified documented in this encounter Care Teams Medical Chemist Relationship Specialty Start Date End Date Luis E Narayan MD [facility] [place] [address] PCP - General Family Medicine 03/26/19 01/19/22 documented as of this encounter
--- OUTSIDE RECORDS SUMMARY | 2024-03-04 21:27 | XMS_ITS | Encounter Summary ---
[place] [address] Care Team Providers Care Research And Development Tester Name Role Phone Luis E Narayan MD Primary Care Provider [phone] Encounter Details Date Type Department Care Team (Late st Contact Info) Description 01/03/2020 [place] [address] Aleisha York APRN [facility] [place] [address] Social History Tobacco Use Types Packs/Day Years [...] encounter Miscellaneous Notes * Telephone Encounter - Aleisha York APRN - 01/03/2020 12:02 PM EDT Images from the original note were not included. Addendum: I discussed with Dr. Hughes this morning. The Prior Auth number is [id number], effective today. We will get a fax to our office as well. [facility]. Surgical date 06/28/2020, and first postop date was 07/17/2019. We discussed rationale for CT abd with and without contrast. Case was updated. Peer to Peer set up for Monday the am at 9:30. Dr. Hughes. Avila Medina MD Hamill Lemay, Kelley, APRN ?? Aleisha Can you handle this. The reason for the 1st f/u imaging after a partial nephrectomy to be with and without contrast is that there are often areas of altered attentuation around a partial nephrectomy site that can only be distinguished from local recurrence with non con + con CT. Once the baseline is obtained future scans can be with contrast only. Thanks Waddell Previous Messages ----- Message ----- From: Laura Orozco Sent: 01/03/2020 ?? 9:02 AM EDT To: Avila Medina MD, [facility] Urology Nurse, * Subject: ALIZE MANJARREZ [[id number]] ? Good morning, ALIZE MANJARREZ [[id number]] is currently scheduled for a CT Abdomen WWO Contrast on 01/13/2020. ??We have received notification from [employer] on behalf of [place] [employer] that our authorization request has been denied. Our request was denied for the following reason: A CT with contrast is supported for the clinical indication(s) presented. The clinical information provided describes a need for a CT with contrast which can be approved as an alternative. Guidelines do not support imaging with and without contrast for the reported condition. The clinical information provided does not describe an indication for with and without contrast and, therefore, the request is not indicated at this time. ?? In order to dispute this denial, you will need to complete a peer to peer review with the [employer] Administrator by calling [employer] at [phone] and using order # [id number] as reference. ??The deadline for completion of the peer to peer is 14 calendar days. ?? Please let me know if you'd like to change the procedure to the recommended alternative, a CT Abdomen W contrast, and I will call [employer] and to get it changed and approved. ?? To cancel or reschedule the patient's scan, please contact the radiology dept at [facility]. Thank you, Laura Orozco Clinical Authorization Services documented in this encounter Plan of Treatment Upcoming Encounters Date Type Department Care Team (Late st Contact Info) Description 03/20/2024 9:00 AM EDT TH Visit (TeleHealth) Sleep Center at [facility] [address] [place] [address] Denisse Hardwick, [facility] 03/20/2024 2:00 PM EDT Clinical Support Family Medicine [facility] [address] [place] [address] Julia Low, [facility] 05/01/2024 11:20 AM EDT Appointment Mammography/[place] [address] Rodney Padilla MD [address] [facility] [place] [address] 05/01/2024 1:45 PM EDT Office [place] [address] Juanpablo Hernandez MD [facility] [place] [address] 01/30/2025 1:30 PM EDT Appointment Hematology [place] [address] 01/30/2025 3:[address] [place] [address] Arturo Cordero MD [facility] DR HEMATOLOGY [place] [address] 01/30/2025 4:15 PM EDT Office Visit [place]ology [place] [address] Arturo Cordero MD [facility] HEMATOLOGY [place] [address] documented as of this encounter Visit Diagnoses Not on filedocumented in this encounter Care Teams Research And Development Tester Relationship Specialty Start Date End Date Luis E Narayan MD [facility] [address] [place] [address] PCP - General Family Medicine 03/26/19 01/19/22 documented as of this encounter
--- OUTSIDE RECORDS SUMMARY | 2024-03-04 21:27 | XMS_ITS | Encounter Summary ---
Author Organization [facility] [place] [address] Care Team Providers Care Wholesale Parts Salesperson Name Role Phone Luis E Narayan MD Primary Care Provider Reason for Visit * Reason Onset Date Comments Appointment 03/27/2020 Encounter Details Date Type Department Care Team (Late st Contact Info) Description 03/27/2020 Telephone [place] [address] Juanpablo Hernandez MD [facility] [place] [address] Appointment Social History Tobacco Use Types Packs/Day [...] * Telephone Encounter - Chantell Dukes - 03/27/2020 2:22 PM EDT Patient scheduled * Telephone Encounter - Chantell Dukes - 03/27/2020 12:00 PM EDT LMOAM x 1 to see if patient is able to take an opening for MEZ on 03/31 at 10:00am. If patient is unable to take this spots please notate and keep original appt documented in this encounter Plan of Treatment Upcoming Encounters Date Type Department Care Team (Late st Contact Info) Description 03/20/2024 9:00 AM EDT TH Visit (TeleHealth) Sleep Center at [facility] [address] [place] [address] Denisse Hardwick, [facility] SLEEP C[facility] 03/20/2024 2:00 PM EDT Clinical Support Family Medicine at [facility] [address] [place] [address] Julia Low, [facility] 05/01/2024 11:20 AM EDT Appointment Mammography/DXA at [place] [phone] Rodney Padilla MD [address] [facility] [place], [place] [phone] 05/01/2024 1:45 PM EDT Office Visit Ophthalmology at [place] [phone] Juanpablo Hernandez MD [facility] [place] [address] 01/30/2025 1:30 PM EDT Appointment Hematology and Oncology at [place] [phone] 01/30/2025 3:[address] Scan at [place] [phone] Arturo Cordero MD [facility] DR HEMATOLOGY [place] [address] 01/30/2025 4:15 PM EDT Office Visit Hematology [place] [address] Arturo Cordero MD [facility] [place] [address] documented as of this encounter Visit Diagnoses Not on filedocumented in this encounter Care Teams Wholesale Parts Salesperson Relationship Specialty Start Date End Date Luis E Narayan MD [facility] [address] [place] [address] PCP - General Family Medicine 03/26/19 01/19/22 documented as of this encounter
--- OUTSIDE RECORDS SUMMARY | 2024-03-04 21:27 | XMS_ITS | Encounter Summary ---
Author Organization [facility] Address [facility] [place] [address] Care Team Providers Care Shoe Singer Name Role Phone Luis E Narayan MD Primary Care Provider Encounter Details Date Type Department Care Team (Late st Contact Info) Description 07/18/2019 [place] [address] Avila Medina MD [facility] [place] [address] Social History Tobacco Use Types Packs/Day Years [...] Miscellaneous Notes * Telephone Encounter - Julia Paula - 07/18/2019 8:54 AM EST LM for pt 6 months with CMP/CXR and CT abd January with Dr. Medina. documented in this encounter Plan of Treatment Upcoming Encounters Date Type Department Care Team (Late st Contact Info) Description 03/20/2024 9:00 AM EDT TH Visit (TeleHealth) Sleep Center at [facility] [address] [address] Denisse Hardwick, [facility] 03/20/2024 2:00 PM EDT Clinical Support Family Medicine at [facility] [address] [address] Julia Low, [facility] 05/01/2024 11:20 AM EDT Appointment Mammography/DXA at [place] [phone] Rodney Padilla MD [address] [place] [address] 05/01/2024 1:45 PM EDT Office Visit Ophthalmology at [place] [phone] Juanpablo Hernandez MD [facility] [place] [address] 01/30/2025 1:30 PM EDT Appointment Hematology and Oncology at [address] 01/30/2025 3:[address] Scan at [place] [phone] Arturo Cordero MD [facility] HEMATOLOGY [place] [address] 01/30/2025 4:15 PM EDT Office Visit Hematology and Oncology at [place] [phone] Arturo Cordero MD [facility] HEMATOLOGY [place] [address] documented as of this encounter Visit Diagnoses Not on filedocumented in this encounter Care Teams Shoe Singer Relationship Specialty Start Date End Date Luis E Narayan MD [facility] [address] [place] [address] PCP - General Family Medicine 03/26/19 01/19/22 documented as of this encounter
--- OUTSIDE RECORDS SUMMARY | 2024-03-04 21:28 | XMS_ITS | Encounter Summary ---
Author Organization [facility] [place] [address] Care Team Providers Care Wireless Sales Expert Name Role Phone Luis E Narayan MD Primary Care Provider [phone] Reason for Visit * Consultation (Routine) - Closed Specialty Diagnoses / Procedures Referred By Gonzalez kumari Referred To Contact Endocrinology Diagnoses Type 2 diabetes mellitus with hyperglycemia, without long-term current use of insulin Luis E Narayan MD [facility] [address] [facility] [address] [facility] [address] [place] [address] Referral ID Status Reason Start Date Expiration Date V isits Requested Visits Authorized [id number] Closed Consult, Test & Treat 05/10/2019 05/09/2020 1 1 Encounter Details Date Type Department Care Team (Late st Contact Info) Description 05/27/2019 4:00 PM EST Office [place] [address] [facility] [place] [address] Type 2 diabetes mellitus with hyperglycemia, without long-term current use of insulin Social History Tobacco Use Types Packs/Day Years Used Date Smoking Tobacco: Every Day Cigarettes Smokeless Tobacco: Never Alcohol Use Standard Drinks/Week [...] - Inhaled Oxygen Concentration - - Weight 103.6 kg (228 lb 8 oz) 05/27/2019 4:13 PM EST Height 159.4 cm (5' 2.75) 05/27/2019 4:13 PM ES T Body Mass Index 40.8 05/27/2019 4:13 PM EST documented in this encounter Patient Instructions * Patient Instructions* Sharona De Jesus, RD - 05/27/2019 4:00 PM EST Aim for 30-45 grams of carbs at each meal, three meals a day. You may have snacks: keep them 15-25 grams of carbs and no more than 3 per day. 1. Meals: aim for a balance of protein, fiber (vegetables - cooked and soft if oral issues and ), healthy fat 2. Breakfast ideas that include more protein: -1/2 Brazilian Muffin with 1 Tbsp peanut butter and apple slices from 1 whole apple. If apples are too hard to chew with dental issues sub 1/2 cup unsweetened apple sauce. -Nauruan yogurt or light yogurt that is 15 grams of carb or less per serving (look at total carbs) -store [employer] chopper or [place]imici danish yogurt or light yogurt, Rene Storyko's TripleZero -2 slices of thinly sliced bread toasted topped with cottage cheese and sprinkle of cinnamon -Low fat cottage cheese with soft fruit (peaches or pears). You could also soften frozen fruit in the microwave and mix it with your cottage cheese. -cream of wheat cereal made with milk -Eggs with sauteed vegetables (cook well so they are soft) in an omelette 3. Exercise as tolerate daily for 30 minutes a day. Could you drive somewhere or have somebody to drive you somewhere where you can walk around inside where it's warm. 4. Lunch ideas: soups with vegetables, thinly sliced bread, 5. Try taking your blood when you check your blood sugar on the fleshy parts of the palms of your hands. Check fasting before breakfast and pick 1 meal to check after. Check 2 hours after the meal. Make a note of your blood sugars to share with Dr. Narayan. 6. Drink lots of water! documented in this encounter Progress Notes * Sharona De Jesus RD - 05/27/2019 4:00 PM EST Adult Endocrinology Diabetes Education and Nutrition Services Alize Gramajo is a 58 year old female with Type 2 diabetes referred for Diabetes Education and Medical Nutrition Therapy by Luis E Narayan MD Subjective: History: Reports she has been having some ongoing neurological issues that are effecting her speechand coordination, mainly balance. She has severe diabetes related neuropathy so painful that she isnot checking her blood glucose levels. She did some research of her own and thinks she may have hada severe reaction to Levofloxacin which she thinks may be causing her neurologic problems. January his past year she was hospitalized at [facility] on given Prednisone. Her blood sugars were high due to the steroid medication and during the brief hospital stay she was given meal associated insulin. Otherwise she has not been on meal associated insulin. Also reports another hospital stay at [facility] where she was delirious and she thinks she may have experienced a low blood glucosethere. She wasn't hungry for aperiod of time, so she was having a shake for breakfast and lunch andthen eating a dinner meal. Reports her sleep specialist was suspicious for iron deficiency, so ordered labs/blood draw and she was found to be iron deficient. She has been taking 325 mg ferrous sulfate once daily for treatment of the iron deficiency. Overall she is also experiencing a lower mood because she has been unable to participate in some of her favorite activities over this past year due to her health problems. She is crying nearly everyday 1-2x a day. Normally she has a garden. She haslow energy/fatigue, but is struggling to come up with quick meals; it's hard to have cereal because of the carbs. She hasn't been exercising much and it's been difficult with her gait/balance problems. Worries about food security and was able to get SNAP benefits, but they do not go far over the month. Objective: Anthropometrics: Vitals 05/27/2019 Height to cm. 159.4 cm Height in inches 5' 2.75 Weight (Brazilian) 228 lbs 8 oz Weight (Metric) 103.6 kg BMI (Calculated) 40.8 BSA (Calculated - sq m) 2.14 I performed an NFPE (Nutrition Focused Physical Exam) which was significant for ~+2 lower extremityedema in her ankles and poor dentition/difficulty chewing. Also 7 lb ~3% unintentional weight loss x past 3 months Ref. Range 04/09/2019 17:02 Sodium Latest Ref Range: 135 - 145 mmol/L 143 Potassium Latest Ref Range: 3.5 - 5.0 mmol/L 4.1 Chloride Latest Ref Range: 98 - 107 mmol/L 101 CO2 Latest Ref Range: 22 - 31 mmol/L 29 Anion Gap Latest Ref Range: 5 - 15 mmol/L 13 BUN Latest Ref Range: 8 - 18 mg/dL 13 Creatinine Latest Ref Range: 0.70 - 1.20 mg/dL 0.81 eGFR Latest Ref Range: >=60 mL/min/1.73 m?? 79 eGFR Latest Ref Range: >=60 mL/min/1.73 m?? 92 Glucose Lvl Latest Ref Range: 65 - 199 mg/dL 99 Calcium Latest Ref Range: 8.5 - 10.5 mg/dL 9.7 Total Protein Latest Ref Range: 6.1 - 8.0 gm/dL 7.1 Albumin Latest Ref Range: 3.2 - 5.2 gm/dL 4.3 Total Bilirubin Latest Ref Range: 0.2 - 1.3 mg/dL 0.3 Alk Phos Latest Ref Range: 35 - 105 unit/L 80 AST Latest Ref Range: 0 - 30 unit/L 28 ALT Latest Ref Range: 0 - 30 unit/L 29 Ref. Range 05/09/2019 10:19 Ferritin Latest Ref Range: 30 - 400 ng/mL 55 Iron Latest Ref Range: 30 - 150 mcg/dL 46 TIBC Latest Ref Range: 250 - 450 mcg/dL 363 Iron Saturation Latest Ref Range: 20 - 50 % 13 (L) Ref. Range 04/09/2019 17:02 Vitamin B-12 Latest Ref Range: 232 - 1,245 pg/mL 820 Ref. Range 03/26/2019 21:53 Hemoglobin A1C Latest Ref Range: 4.3 - 5.6 % 8.0 (H) Est Avg Gluc Latest Units: mg/dL 183 Diabetes Regimen: Has neuropathy so bad that she is not checking her blood sugars Needs a new glucometer, but has one. Insurance wouldn't pay for strips or lancets she reports for new. Metformin 500 mg BID she increased to 1000 mg at night, so taking 1500 mg/day. No longer on Prednisone. Medication Sig aspirin EC 81 mg Tablet, Delayed Release (E.C.) Take 81 mg by mouth daily. lamoTRIgine (LAMICTAL) 25 mg Tablet Take 3 tablets by mouth daily. nicotine (NICODERM CQ) 21 mg/[address] 1 patch onto the skin daily as needed. Patient not taking: Reported on 06/21/2019 metFORMIN (GLUCOPHAGE) 1,000 mg Tablet Take 1 tablet by mouth 2 times daily (with meals). nitroGLYcerin (NITROSTAT) 0.4 mg Tablet, Sublingual Place 1 tablet under the tongue See Admin Instructions. Patient not taking: Reported on 06/21/2019 amLODIPine (NORVASC) 5 mg Tablet Take 1 tablet by mouth daily. Patient not taking: Reported on 06/21/2019 simvastatin (ZOCOR) 10 mg Tablet Take 1 tablet by mouth daily. fluticasone propionate (FLONASE) 50 mcg/actuation Bronson, Suspension 50 sprays by Each Nare route 2 times daily. loratadine (CLARITIN) 10 mg Tablet Take 1 tablet by mouth daily. budesonide-formoterol (SYMBICORT) 80-4.5 mcg/actuation HFA Aerosol Inhaler Inhale 2 puffs into the lungs 2 times daily. clopidogrel (PLAVIX) 75 mg Tablet Take 1 tablet by mouth daily. metoprolol succinate (TOPROL XL) 25 mg Tablet Sustained Release 24 hr Take 1 tablet by mouth daily. losartan (COZAAR) 100 mg Tablet Take 1 tablet by mouth daily. omeprazole 20 mg Tablet, Delayed Release (E.C.) Take 1 tablet by mouth daily. traZODone (DESYREL) 100 mg Tablet Take 1 tablet by mouth nightly. fluticasone-salmeterol (ADVAIR HFA) 115-21 mcg/Actuation inhaler ALBUTEROL SULFATE (PROVENTIL HFA INHL) Assessment: Alize Gramajo is a 58 year old female with a pmh significant for type 2 diabetes and abnormal MRI ofhead, hx of altered mental status episode. Per latest HbA1c 8% diabetes suboptimally controlled. Difficult to assess overall current level of glycemic control because she is not self monitoring due to severe neuropathy in her hands and therefore brings no record of her glucose levels. She is on Metformin. Suspect poorer control related to her ongoing health problems and having a period of needingto take steroids which are known to cause post prandial hyperglycemia, which can be difficult to control without insulin. It sounds like she was not taking insulin, other than during of of the hospita lizations she reported. She self increased her Metformin. Suspect that next HbA1c will show improvement given she is is no longer on steroid meds. No malnutrition identified. Nutrition Intervention: Detailed education provided regarding a carbohydrate controlled diet to aide with management of post prandial hyperglycemia and tailored for dental issues using basic carbohydrate counting (label reading, methods for portion control and measuring portions, reviewing food groups which contain carbs,effect of carbohydrate on blood glucose levels, and fiber), self blood glucose monitoring, and exercise. Booklet provided and used to aid with education. Patient's Nutrition Plan/Recommendations (a copy of the AVS was printed and given to her) Aim for 30-45 grams of carbs at each meal, three meals a day. You may have snacks: keep them 15-25 grams of carbs and no more than 3 per day. 1. Meals: aim for a balance of protein, fiber (vegetables - cooked and soft if oral issues), and healthy fat 2. Breakfast ideas that include more protein: -1/2 Brazilian Muffin with 1 Tbsp peanut butter and apple slices from 1 whole apple. If apples are too hard to chew with dental issues sub 1/2 cup unsweetened apple sauce. -Nauruan yogurt or light yogurt that is 15 grams of carb or less per serving (look at total carbs) -store [employer] roger chopper or [place] danish yogurt or light yogurt, Rene Story's TripleZero -2 slices of thinly sliced bread toasted topped with cottage cheese and sprinkle of cinnamon -Low fat cottage cheese with soft fruit (peaches or pears). You could also soften frozen fruit in the microwave and mix it with your cottage cheese. -cream of wheat cereal made with milk -Eggs with sauteed vegetables (cook well so they are soft) in an omelette 3. Exercise as tolerated daily for 30 minutes a day. Could you drive somewhere or have somebody to drive you somewhere where you can walk around inside where it's warm? 4. Lunch ideas: soups with vegetables, thinly sliced bread 5. Try taking your blood when you check your blood sugar on the fleshy parts of the palms of your hands. Check fasting before breakfast and pick 1 meal to check after. Check 2 hours after the meal. Make a note of your blood sugars to share with Dr. Narayan. 6. Drink lots of water! Monitoring and Evaluation: Follow up: pt to follow up with PCP for further diabetes management. Discussed follow up options w/myself. Sharona De Jesus MS, RD, LD I spent 75 minutes with the patient of which 60 were in direct face to face counseling providing Medical Nutrition Therapy. documented in this encounter Plan of Treatment Upcoming Encounters Date Type Department Care Team (Late st Contact Info) Description 03/20/2024 9:00 AM EDT TH Visit (TeleHealth) Sleep Center at [facility] [address] [place] [phone] Denisse Hardwick, S[employer]IOR [employer]EL[employer] [facility] 03/20/2024 2:00 PM EDT Clinical Support Family [facility] [address] [place] [phone] Julia Low, [facility] 05/01/2024 11:20 AM EDT Appointment Mammography/[place] [phone] Rodney Padilla MD [address] [place] [address] 05/01/2024 1:45 PM EDT [place] [phone] Juanpablo Hernandez MD [facility] [place] [address] 01/30/2025 1:30 PM EDT Appointment Hematology and Oncology at [place] [phone] 01/30/2025 3:[address] [place] [place] [address] Arturo Cordero MD [facility] DR HEMATOLOGY [place] [address] 01/30/2025 4:15 PM EDT Office Visit [place] [address] Arturo Cordero MD [facility] DR HEMATOLOGY [place] [address] Scheduled Referrals Name Type Priority Associated Diagnoses Orde r Schedule Referral to Diabetic Education Outpatient Referral Routine Type 2 diabetes mellitus without long-term current use of insulin Ordered: 05/10/2019 documented as of this encounter Visit Diagnoses Diagnosis Type 2 diabetes mellitus with hyperglycemia, without long-term current use of insulin documented in this encounter Care Teams Wireless Sales Expert Relationship Specialty Start Date End Date Luis E Narayan MD [facility] [address] [address] PCP - General Family Medicine 03/26/19 01/19/22 documented as of this encounter
--- OUTSIDE RECORDS SUMMARY | 2024-03-04 21:28 | XMS_ITS | Encounter Summary ---
Author Organization [facility] [place] [address] Care Team Providers Care Central Sterile Supply Technician Name Role Phone Luis E Narayan MD Primary Care Provider [phone]- [phone] Reason for Visit * Reason Onset Date Comments New Medication Request 06/13/2019 Encounter Details Date Type Department Care Team (Late st Contact Info) Description 06/13/2019 Telephone Family Medicine at [facility] [address] [place] [phone] George Lorenzo New Medication Request Social History Tobacco Use [...] encounter Miscellaneous Notes * Telephone Encounter - George Lorenzo - 06/13/2019 3:47 PM EST ?? Please remind every patient that prescription requests can take up to 72 business hours to process Medication Refill Request: Name of Medication: Nicotine Patch Dose as Prescribed: How many days left: n/a Prescriber: Luis E Narayan MD Pharmacy Name & Location: [id number] - [address] Ask caller their first and last name and relationship to the patient: patient Best time to call back: any Ok to leave a message: yes Ok to send my- message: no ?? documented in this encounter Plan of Treatment Upcoming Encounters Date Type Department Care Team (Late st Contact Info) Description 03/20/2024 9:00 AM EDT TH Visit (TeleHealth) Sleep Center at [facility] [address] [place] [phone] Denisse Hardwick, [facility] 03/20/2024 2:00 PM EDT Clinical Support Family Medicine at [facility] [address] [place] [phone] Julia Low, [facility] 05/01/2024 11:20 AM EDT Appointment Mammography/DXA at [place] [phone] Rodney Padilla MD [address] [facility] [place], [place] [id number] 05/01/2024 1:45 PM EDT Office Visit Ophthalmology at [place] [phone] Juanpablo Hernandez MD [facility] [place] [address] 01/30/2025 1:30 PM EDT Appointment Hematology and Oncology at [place] [phone] 01/30/2025 3:[address] Scan at [place] [phone] Arturo Cordero MD [facility] [place] [address] 01/30/2025 4:15 PM EDT Office Visit Hematology [place] [address] Arturo Cordero MD [facility] [place] [address] documented as of this encounter Visit Diagnoses Not on filedocumented in this encounter Care Teams Central Sterile Supply Technician Relationship Specialty Start Date End Date Luis E Narayan MD [facility] [address] [place] [address] PCP - General Family Medicine 03/26/19 01/19/22 documented as of this encounter
--- OUTSIDE RECORDS SUMMARY | 2024-03-04 21:28 | XMS_ITS | Encounter Summary ---
Author Organization [facility] [place] [address] Care Team Providers Care Research And Evaluation Analyst Name Role Phone Luis E Narayan MD Primary Care Provider Reason for Visit * Auth/Cert Specialty Diagnoses / Procedures Referred By Gonzalez t Referred To Contact Diagnoses Renal Mass Procedures PRO LAP, PARTIAL NEPHRECTOMY LAPAROSCOPY, PARTIAL NEPHRECTOMY, ROBOTIC ASSIST (WRVU 27.41) MODIFIER ROBOT,DAVINCI XI Referral ID Status Reason Start Date Expiration Date Visits Re quested Visits Authorized [id number] 1 1 Encounter Details Date Type Department Care Team (Late st Contact Info) Description 06/28/2019 8:34 AM EST Anesthesia Event [place] [address] Nathan Schmidt MD [facility] [place] [place] [address] Anesthesia Record Procedure Summary Procedure Name Responsible Anesthesiologist Anesthesia Start Time Anesthesia Stop Time ROBOTIC LAPAROSCOPY, PARTIAL NEPHRECTOMY (WRVU 27.41) (Left: Flank) Nathan Schmidt MD 06/28/19 0834 06/28/19 1359 Events Date Time Event Comment 06/28/2019 0833 0834 AN Verify 0834 Start 0838 An Start Data 0851 An Induction 0854 An Intubation 0928 Quick Note Significant dif ficulty placing A-line. Able to get flash but unable to thread multiple times on both radial arteries. Eventually able to place left brachial line with ultrasound. 0951 Quick Note Hemodynamically reactive during repositioning. 1020 Nerve Block QL block 1021 Anesthesia Ready 1036 Procedure Start 1113 ABG Data Arterial Blood Gas result: pH 7.305 pCO2 55.0 pO2 206.1 %O2 Sat 94.2 FiO2 56 HCO3 26.8 BE 0.4 Hb 13.4 K 4.11 Glucose 160 Lactate 1.32 1116 An Data Art Significant dam pening of a-line, but MAP continues to correlate well between cuff and A-line. 1303 Quick Note Desufflation 1331 Procedure Stop 1342 An Data Art Noted upon leav ing that a-line transducer had fallen on floor during transfer 1344 Extubation/LMA Out 1347 an stop data 1349 Recovery or ICU Handoff Victorina ent care was transferred to the destination unit staff after review of the patient's medical history, current anesthetic/surgical status and plan, according to the Provider Handoff Checklist. 1359 Stop Meds Name Total Midazolam 1 mg fentaNYL 100 mcg IV Lidocaine 100 mg Propofol 310 mg Rocuronium 150 mg ePHEDrine 10 mg Ondansetron 8 mg Neostigmine 4.5 mg Glycopyrrolate 0.9 mg Propofol INF 1,007 mg cefTRIAXone (ROCEPHIN) 2 g v ial attach to sodium chloride 0.9% 50 mL Mini-Bag Plus 2 g PHENYLephrine INF 620 mcg heparin (Porcine) subcutaneous injection 5,000 Units 5,000 Units ROpivacaine 0.5% 30 mL HYDROmorphone 0.6 mg indocyanine green (IC-GREEN) injection 2 5 mg 5 mg lactated ringers infusion 1,600 mL Lactated Ringers 500 mL * Agents Name O2 Air N2O Sevoflurane (et) * Blood No blood administrations on file. Lines, Drains, and Airways Type Details Placement Removal Ileostomy 06/24/19; ileostomy 06/24/19 000 0 by Nelson Mejía RN Drain/Device Site 06/28/19; 1216; Left ; lower; abdomen; collapsible closed device; Sterile prep and drape; 19 caryn drain covered with drain sponge 06/28/19 1216 by Tameka Duncan, VEDA (RETIRED) Peripheral IV Line - Single Lumen metacarpal vein (top of hand), right; egkg-ufc-[id number] catheter system; 18 gauge; Nathan Schmidt MD; (GA); 06/29/19; 182306/28/19 1102 by 06/29/19 1824 by Carlota Rocha, VEDA (RETIRED) Peripheral IV Line - Single Lumen 06/28/19; 0807; median cubital vein (antecubital fossa), left; igri-cxa-rjmyeb catheter system; 20 gauge; Gerson Boston RN; distraction; 1; 07/01/19; 1618 06/28/19 0807 by Jack Boston RN 07/01/19 1618 by Melissa Alvarez LNA ETT Mask Ventilation: Adjunct (2); ETT Type: Cuffed; ETT Size: 7 mm; Mac Blade: 3; Notes: Asleep, Awake, Cricoid Pressure, Pre-O2, Stylette; Attempts: 1; Laryngoscopy Grade: 2; ETT Placement Verified By: Auscultation, Capnometry; Secured at Teeth: 22 cm; Inserted by: Joni Luna; Removal Date: 06/28/19; Removal Time: 1345 06/28/19 0854 by Joni Jane MD 06/28/19 1345 by Joni Jane MD Urethral Catheter 06/28/19; 0900; Urol ogic surgery; indwelling double lumen catheter; latex; 14; inserted at this facility; 1; 5; 10; none; drainage bag to dependent drainage; secured with tube secure; 06/29/19; 1100 06/28/19 0900 by Tameka Duncan RN 06/29/19 1100 by Christine Wu RN Arterial Line 06/28/19; 1018; [facility] hial artery, left; 20 gauge; Nathan Schmidt; Sterile Prep, Sterile Gloves; removed by MD Brayan; no longer indicated, catheter intact; 06/28/19; 1515 06/28/19 1018 by Joni Jane MD 06/28/19 1515 by Cara Jain RN Incision 06/28/19; 1035; abdo men; laparoscopic puncture; robotic trocar sites x 4 with 1 regular lap port closed with dermabond; 03/07/22 (LDA cleanup utility RA#[id number]); 1715 (LDA cleanup utility RA#[id number]) 06/28/19 1035 by Tameka Duncan RN 03/07/22 1715 by Leanne Mcdaniel documented [...] OR Notes * Anesthesia Postprocedure Evaluation - Joni Jane - 06/28/2019 2:02 PM EST Department of Anesthesiology Post-procedure Note Patient: Alize Gramajo Procedure Summary Date: 06/28/19 Room / Location: [facility] OR [facility] MAIN OR Anesthesia Start: 833 Anesthesia Stop: 135 Procedures: LAPAROSCOPY, PARTIAL NEPHRECTOMY, ROBOTIC ASSIST (WRVU 27.41) (Left Flank) MODIFIER ROBOT,DAVINCI XI (N/A ) Diagnosis: Renal mass (renal mass) Surgeon: Avila Medina MD Responsible Provider: Nathan Schmidt MD Anesthesia Type: general ASA Status: 3 All Anesthesia Providers: Anesthesiologist: Nathan Schmidt MD Uptwister Tender: Joni Jane MD Vitals Value Taken Time BP 118/57 06/28/2019 1:51 PM Temp Pulse 68 06/28/2019 2:00 PM Resp 22 06/28/2019 2:00 PM SpO2 99 % 06/28/2019 2:00 PM Pain Level Vitals shown include unvalidated device data. Patient Location: PACU/[facility] Level of Consciousness: Conscious but Sleepy Pain Management: Satisfactory Analgesia PONV: None Cardiovascular Status: At Baseline Respiratory Status: Supplemental O2 (NC or FM) and Stable Respiratory Status Postoperative Fluid Status: Intravascular EUvolemia Possible Anesthetic Complications: NONE apparent at time of evaluation Final Primary Anesthesia Type: General (The anesthetic type performed was the same as planned.) Comments: Complaint only of dry mouth. Still relatively sleepy and obstructing. Will utilize patient's home CPAP. Joni Jane MD * Anesthesia Procedure Notes - Julissa Morris - 06/28/2019 10:56 AM EST Associated Order(s): Anesthesia Block Anesthesia Block Date/Time: 06/28/2019 10:30 AM Performed by: Julissa Morris MD Authorized by: Jak Crystal MD Start Time: 06/28/2019 10:22 AM End Time: 06/28/2019 10:28 AM Patient Location: Main OR The patient was greeted; the risks and benefits of the procedure were reviewed. Indication: Post-op Pain Control Post-op pain management at the request of surgeon. Block Type: Other and TAP Laterality: Left Position: Right lateral decubitus Prep: Chlorhexidine, patient draped and mask, cap, sterile gloves, hand hygeine [id number] 21 10 cm Ultrasound Guided: YES and in-plane. Ultrasound Image(s) were saved. Ultrasound guidance was used to identify the targeted neuronal structure. Ultrasound was also used to identify needle position and to identify tissue (bone, muscle, and blood vessels) to prevent inadvertent intraneural or intravascular needle placement and injection. The spread of local anesthetic was confirmed with live ultrasound imaging. Single-Shot: Single-shot ROpivacaine 0.5%, 30 mL no complications Fellow:: Julissa Morris MD Attending Physician:: Jak Crystal MD Performed under sterile technique under general anesthesia. Quadratus lumborum block performed. Negative aspirations every 5 cc. Patient tolerated procedure without issue. Associated attestation - Jak Crystal MD - 07/02/2019 8:23 AM EST I have seen and examined the patient, providing smith components as outlined below. * Anesthesia Preprocedure Evaluation - Joni Jane - 06/27/2019 4:36 PM EST Images from the original note were not included. Pre-Anesthesia Evaluation for: Alize Gramajo a 58 y.o. female. Procedure(s): LAPAROSCOPY, PARTIAL NEPHRECTOMY, ROBOTIC ASSIST (WRVU 27.41) MODIFIER ROBOT,DAVINCI XI Patient Active Problem List Diagnosis ??? Left atrial dilatation - severe ??? Left renal mass Also has +FHx renal cancer. ??? Iron deficiency ??? Hx of dysplasia of cervix, low grade (VALENTINO 1) 2018 Normal Pap, HPV ??? H/O heart artery stent x4 LCX ??? Diabetic polyneuropathy associated with type 2 diabetes mellitus ??? COPD ??? Bipolar affective disorder in remission Diagnosis in [facility], unconfirmed ??? Anxiety ??? Depressive disorder ??? Type 2 diabetes mellitus without long-term current use of insulin ??? TITO on CPAP ??? Abnormal MRI of head 2019 MRI [...] TSH, etc. ??? 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 Past Medical History: Diagnosis Date ??? Antiplatelet or antithrombotic long-term use aspirin, plavix ??? Asthma uses inhalerswith good effect ??? Atherosclerosis of nome coronary artery of nome heart with angina pectoris 10/09/2007 History of [...] STENT PLACEMENT Placed at ??? [facility] Social History Tobacco Use ??? Smoking status: [...] home medications have been reviewed. Physical Exam: There were no vitals filed for this visit. There is no height or weight on file to calculate BMI. Airway Assessment: Mallampati: I TM distance: >3 FB Neck ROM: full Cardiovascular Assessment: Rhythm: regular Rate: normal Pulmonary Assessment: breath sounds clear to auscultation Dental Assessment: Misc Assessment: IV access: Peripheral line Anesthesia Plan: ASA 3 general, with a(n) intravenous induction Alize Gramajo is a 58 YO, 101 kg female with suspicious renal and adrenal masses, presenting for laparoscopic robot assisted left partial nephrectomy. PMH significant for NIDDM c/b neuropathy (a1c 7.2), TITO on CPAP, depression/anxiety/bipolar, HLD, HTN, CAD s/p IA and 4 stents to LCx in 10/2007, ongoing smoker (40 PY), COPD with exacerbation last summer managed with prednisone taper, asthma, chronic back pain, GERD (omeprazole), and issues with balance/brain fog/speech difficulty with workup ongoing. EKG: sinus w/ PACs. TTE 06/2019: LVEF 71%, no WMAs, severe LA dilation, no hemodynamically significant valve disease. No anesthesia records available. History of PONV and motion sickness noted. Plan: GETA, standard monitors, A-line, adequate IV access, QL block. Region - Other Informed Consent: Anesthetic plan and risks discussed with patient. Plan discussed with attending and resident. PAT Clinic Note documented in this encounter Plan of Treatment Upcoming Encounters Date Type Department Care Team (Late st Contact Info) Description 03/20/2024 9:00 AM EDT TH Visit (TeleHealth) Sleep Center [facility] [address] [place] [phone] Denisse Hardwick, [facility] 03/20/2024 2:00 PM EDT Clinical Support Family Medicine [facility] [address] [place] [phone] Julia Low, [facility] 05/01/2024 11:20 AM EDT Appointment Mammography/[place] [phone] Rodney Padilla MD [address] [place] [address] 05/01/2024 1:45 PM EDT Office [place] [phone] Juanpablo Hernandez MD [facility] [place] [address] 01/30/2025 1:30 PM EDT Appointment Hematology [place] [phone] 01/30/2025 3:[address] [place] [address] Arturo Cordero MD [facility] [address] [place] [address] 01/30/2025 4:15 PM EDT Office Visit [facility]ology [facility] at [facility] [place] [address] Arturo Cordero MD [facility] [address] [place] [address] documented as of this encounter Procedures Procedure Name Priority Date/Time Associated Diagnosis Comments ANESTHESIA BLOCK Routine 06/28/2019 10:5 6 AM EST documented in this encounter Results * Anesthesia Block (06/28/2019 10:56 AM EST) Narrative Jak Crystal MD - 06/28/2019 10:56 AM EST Julissa Morris MD ? 06/28/2019 10:57 AM Anesthesia Block Date/Time: 06/28/2019 10:30 AM Performed by: Julissa Morris MD Authorized by: Jak Crystal MD Start Time: ??06/28/2019 10:22 AM End Time: ??06/28/2019 10:28 AM Patient Location: ??Main OR The patient was greeted; the risks and benefits of the procedure were reviewed. ?? Indication: ??Post-op Pain Control Post-op pain management at the request of surgeon. ?? Block Type: ??Other and TAP Laterality: ??Left Position: ??Right lateral decubitus Prep: ??Chlorhexidine, patient draped and mask, cap, sterile gloves, hand hygeine [id number] 21 10 cm Ultrasound Guided: ??YES and in-plane. ??Ultrasound Image(s) were saved. Ultrasound guidance was used to identify the targeted neuronal structure. Ultrasound was also used to identify needle position and to identify tissue (bone, muscle, and blood vessels) to prevent inadvertent intraneural or intravascular needle placement and injection. The spread of local anesthetic was confirmed with live ultrasound imaging. ?? Single-Shot: ??Single-shot ROpivacaine 0.5%, 30 mL no complications ?? Fellow:: ??Julissa Morris MD Attending Physician:: ??Jak Crystal MD Performed under sterile technique under general anesthesia. Quadratus lumborum block performed. Negative aspirations every 5 cc. Patient tolerated procedure without issue. Jak Crystal MD [facility] documented in this encounter Visit Diagnoses Not on filedocumented in this encounter Administered Medications Inactive Administered Medications - up to 3 most recent administrations Medication Order MAR Action Action Date Dose Rate Site cefTRIAXone (ROCEPHIN) 2 g vial attach to sodium chloride 0.9% 50 mL Mini-Bag Plus 2 g, Intravenous, CREDIT ADVISOR TO O.R., 1 dose, On Mon06/28/19 at 0815, Administer over 30 Minutes, Day of Surgery (Day of Procedure), Indication for (Active or Suspected): Prophylaxis New Bag 06/28/2019 9:09 AM EST 2 g ePHEDrine 5 mg/mL multi-dose injection PRN, Starting on Mon06/28/19 at 1014, Until Mon06/28/19 at 1359, Anesthesia Intra-op, Routine Given 06/28/2019 11:55 AM EST 5 mg Given 06/28/2019 10:14 AM EST 5 mg fentaNYL 50 mcg/mL multi-dose injection PRN, Starting on Mon06/28/19 at 0844, Until Mon06/28/19 at 1359, Anesthesia Intra-op, Routine Given 06/28/2019 10:51 AM EST 50 mcg Given 06/28/2019 8:44 AM EST 50 mcg glycopyrrolate (ROBINUL) multi-dose injection PRN, Starting on Mon06/28/19 at 1312, Until Mon06/28/19 at 1359, Anesthesia Intra-op, Routine Given 06/28/2019 1:12 PM EST 0.9 mg heparin (Porcine) subcutaneous injection 5,000 Units 5,000 Units, Subcutaneous, CREDIT ADVISOR TO O.R., 1 dose, On Mon06/28/19 at 0815, Day of Surgery (Day of Procedure), Routine Given 06/28/2019 10:25 AM EST 5,000 Units HYDROmorphone (DILAUDID) injection PRN, Starting on Mon06/28/19 at 1143, Until Mon06/28/19 at 1359, Anesthesia Intra-op, Routine Given 06/28/2019 1:03 PM EST 0.2 mg Given 06/28/2019 11:43 AM EST 0.4 mg indocyanine green (IC-GREEN) injection PRN, Starting on Mon06/28/19 at 1209, Until Mon06/28/19 at 1359, Anesthesia Intra-op, Routine Given 06/28/2019 12:09 PM EST 5 mg lactated ringers infusion 1,000 mL, at 100 mL/hr, Intravenous, CONTINUOUS, Starting on Mon06/28/19 at 0815, Until Mon06/28/19 at 1604, Day of Surgery (Day of Procedure) New Bag 06/28/2019 10:20 AM EST New Bag 06/28/2019 8:34 AM EST New Bag 06/28/2019 8:08 AM EST 1,000 mLs 100 mL/hr lactated ringers infusion CONTINUOUS PRN, Starting on Mon06/28/19 at 0909, Until Mon06/28/19 at 1359, Anesthesia Intra-op New Bag 06/28/2019 9:09 AM EST lidocaine (PF) (XYLOCAINE) 100 mg/5 mL (2 %) injection PRN, Starting on Mon06/28/19 at 0851, Until Mon06/28/19 at 1359, Anesthesia Intra-op, Routine Given 06/28/2019 8:51 AM EST 100 mg midazolam (PF) (VERSED) multi-dose injection PRN, Starting on Mon06/28/19 at 0834, Until Mon06/28/19 at 1359, Anesthesia Intra-op, Routine Given 06/28/2019 8:34 AM EST 1 mg neostigmine (BLOXIVERZ) injection PRN, Starting on Mon06/28/19 at 1312, Until Mon06/28/19 at 1359, Anesthesia Intra-op, Routine Given 06/28/2019 1:12 PM EST 4.5 mg ondansetron (ZOFRAN) injection PRN, Starting on Mon06/28/19 at 1307, Until Mon06/28/19 at 1359, Anesthesia Intra-op, Routine Given 06/28/2019 1:07 PM EST 8 mg PHENYLephrine (SHAKIRA-SYNEPHRINE) 20 mg in sodium chloride 250 mL (standard ADULT & Pedi greater than 20kg) infusion CONTINUOUS PRN, Starting on Mon06/28/19 at 1019, Until Mon06/28/19 at 1359, Anesthesia Intra-op, Routine New Bag 06/28/2019 10:19 AM EST 20 mcg/min 15 mL/hr propofol (DIPRIVAN) 10 mg/mL bolus injection (Anesthesia) PRN, Starting on Mon06/28/19 at 0851, Until Mon06/28/19 at 1359, Anesthesia Intra-op Given 06/28/2019 10:37 AM EST 30 mg Given 06/28/2019 9:51 AM EST 50 mg Given 06/28/2019 9:49 AM EST 30 mg propofol (DIPRIVAN) infusion CONTINUOUS PRN, Starting on Mon06/28/19 at 0951, Until Mon06/28/19 at 1359, Anesthesia Intra-op, Routine New Bag 06/28/2019 9:51 AM EST 50 mcg/kg/min 30.2 mL/hr rocuronium (ZEMURON) multi-dose injection PRN, Starting on Mon06/28/19 at 0923, Until Mon06/28/19 at 1359, Anesthesia Intra-op, Routine Given 06/28/2019 11:26 AM EST 50 mg Given 06/28/2019 9:23 AM EST 50 mg Given 06/28/2019 8:52 AM EST 50 mg ROpivacaine (PF) (NAROPIN) 5 mg/mL (0.5 %) injection Perineural, Starting on Mon06/28/19 at 1030, Until Mon06/28/19 at 1030, Anesthesia Intra-op, Routine Given 06/28/2019 10:30 AM EST 30 mLs documented in this encounter Care Teams Research And Evaluation Analyst Relationship Specialty Start Date End Date Luis E Narayan MD [facility] [place] [place] [address] PCP - General Family Medicine 03/26/19 01/19/22 documented as of this encounter
--- OUTSIDE RECORDS SUMMARY | 2024-03-04 21:28 | XMS_ITS | Encounter Summary ---
Author Organization [facility] [place] [address] Care Team Providers Care Personal Support Worker Name Role Phone Luis E Narayan MD Primary Care Provider [phone] Reason for Visit * Consultation (Routine) - Closed Specialty Diagnoses / Procedures Referred By Gonzalez kumari Referred To Contact Primary Care Diagnoses Type 2 diabetes mellitus with hyperglycemia, without long-term current use of insulin Luis E Narayan MD [facility] [address] [address] [facility] Family Medicine [facility] [place] [address] Referral ID Status Reason Start Date Expiration Date V isits Requested Visits Authorized [id number] Closed Specialty Service Requested 05/29/2019 05/28/2020 1 1 Encounter Details Date Type Department Care Team (Late st Contact Info) Description 06/04/2019 1:00 PM EST [place] [phone] Julia Low, [facility] Social History Tobacco Use Types Packs/Day Years [...] [facility] [address] [place] [address] Denisse Hardwick, [facility] 03/20/2024 2:00 PM EDT Clinical Support Family Medicine at [facility] [address] [place] [address] Julia Low, [facility] 05/01/2024 11:20 AM EDT Appointment Mammography[place] [address] Rodney Padilla MD [address] [facility] [place] [address] 05/01/2024 1:45 PM EDT Office Visit Ophthalmology at [place] [phone] Juanpablo Hernandez MD [facility] [place] [address] 01/30/2025 1:30 PM EDT Appointment Hematology [place] [address] 01/30/2025 3:[address] Scan at [place] [phone] Arturo Cordero MD [facility] HEMATOLOGY [place] [address] 01/30/2025 4:15 PM EDT Office Visit Hematology [place] [phone] Arturo Cordero MD [facility] [address] [place]ATOLOG[place] [address] Scheduled Referrals Name Type Priority Associated Diagnoses Orde r Schedule Referral to [facility] (Primary Care Use Only) Outpatient Referral Routine Type 2 diabetes mellitus without long-term current use of insulin Ordered: 05/29/2019 documented as of this encounter Visit Diagnoses Not on filedocumented in this encounter Care Teams Personal Support Worker Relationship Specialty Start Date End Date Luis E Narayan MD [facility] [address] [place] [address] PCP - General Family Medicine 03/26/19 01/19/22 documented as of this encounter
--- OUTSIDE RECORDS SUMMARY | 2024-03-04 21:28 | XMS_ITS | Encounter Summary ---
Author Organization [facility] [place] [address] Care Team Providers Care Screedman/Laborer Name Role Phone Luis E Narayan MD Primary Care Provider Reason for Referral * Diagnostic Test (Routine) - Closed Specialty Diagnoses / Procedures Referred By Gonzalez kumari Referred To Contact Radiology Diagnoses Renal cancer, left Procedures CT Abdomen wwo Contrast Josseline Machado MD [facility] [place] [address] [facility] [place] [address] Referral ID Status Reason Start Date Expiration Date V isits Requested Visits Authorized [id number] Closed Specialty Service Requested 12/30/2019 06/27/2020 1 1 Reason for Visit * Reason Comments Follow-up Encounter Details Date Type Department Care Team (Late st Contact Info) Description 07/17/2019 10:20 AM EST [place] [address] Josseline Machado MD [facility] [place] [address] Renal cancer, left (Primary Dx) Social History Tobacco Use Types [...] Sign Reading Time Taken Comments Blood Pressure 143/77 07/17/2019 10:24 AM EST Pulse 58 07/17/2019 10:24 AM EST Temperature 36.7 ??C (98 ??F) 07/17/2019 10:24 AM EST Respiratory Rate - - Oxygen Saturation - - Inhaled Oxygen Concentration - - Weight - - Height - - Body Mass Index - - documented in this encounter Progress Notes * Josseline Machado MD - 07/17/2019 10:20 AM EST Patient Name: Alize Manjarrez Date of Service: 07/17/2019 Primary Care Provider: Luis E Narayan MD Reason for Visit: Alize Manjarrez is a 58 y.o. female who on had a Left robot assited partial nephrectomy for a [id number] Grade 3 clear cell cancer. All surgical margins were negative. Warm ischemia time was 16 minutes 45 seconds. Department of Pathology & Laboratory Medicine [place] [address] , (Fax) [phone] Name: ALIZE MANJARREZ Provider: JOSSELINE MACHADO Client: [facility] /Age/Sex: 1960 58 years Female Location: [facility]; [facility]; A Report ID: [id number] The signing pathologist has (i) examined the relevant preparation(s) for the specimen(s); and (ii) rendered or confirmed the diagnosis(es). Pathology Report Collected: 06/28/2019 12:57 Received: 06/28/2019 13:20 Surgical Pathology DIAGNOSIS Specimen Parts: A Specimen Procedure: Partial nephrectomy Specimen Laterality: Left Tumor Tumor Site: Lower pole (per imaging report) Histologic Type: Clear cell renal cell carcinoma Histologic Grade: G3 Tumor Size: 3.0 x 1.2 x 1.1 cm Tumor Focality: Unifocal Tumor Extension: Tumor limited to kidney Sarcomatoid Features: Not identified Rhabdoid Features: Not identified Tumor Necrosis: Not identified Lymphovascular Invasion: Not identified Margins Margins: Uninvolved by invasive carcinoma Lymph Nodes Regional Lymph Nodes: No lymph nodes submitted or found Pathologic Stage Classification (pTNM, AJCC 8th Edition) Primary Tumor (pT): pT1a Regional Lymph Nodes (pN): pNX Additional Findings Pathologic Findings in Nonneoplastic Kidney: None identified Adrenal Gland: Not present Tumor Block(s): A4 Normal Block(s): A10 [facility] August 2018 Annual Release SPECIFIED PARTS: A - Left renal mass and fat (partial nephrectomy): - Clear cell renal cell carcinoma (3.0 cm), ISUP Grade 3 of 4. - Margins negative for carcinoma. - See synoptic report for additional details and staging. Page 1 of 2 Name: ALIZE MANJARREZ Report ID: [id number] The signing pathologist has (i) examined the relevant preparation(s) for the specimen(s); and rendered or confirmed the diagnosis(es). Pathology Report Collected: 06/28/2019 12:57 Received: 06/28/2019 13:20 DIAGNOSIS Electronically signed by: Christine Pierce MD Verified: 07/04/2019 Pathologist Performed at: -[facility] Dept. of Pathology, [place], [place] Following the surgery she did well and was discharged to home on 07/01/2019. She returns for followup today. The patient has done well since the surgery. Appetite is good. Pain is well controlled. There is no problems with the bowels. Voiding well. No hematuria. Examination: The abdomen is benign. The incisions are well healed. Labs: 07/17/2019 Cr 0.84, eGFR 76 Xrays: None Imp: [id number] Grade 3 Clear Cell renal cancer sp partial nephrectomy. 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 Plan: I discussed the pathology in detail with the patient. I discussed the risks of tumor recurrence which are <20%. There is no indicated adjuvant therapy. I recommended that she see me 6 months with a CMP/CXR and CT abd Josseline Machado documented in this encounter Plan of Treatment Upcoming Encounters Date Type Department Care Team (Late st Contact Info) Description 03/20/2024 9:00 AM EDT TH Visit (TeleHealth) Sleep Center at [facility] [address] [place] [phone] Denisse Hardwick, [facility] 03/20/2024 2:00 PM EDT Clinical Support [facility] [address] [place] [phone] Julia Low, [facility] 05/01/2024 11:20 AM EDT Appointment Mammography/[place] [phone] Rodney Padilla MD [address] [place] [address] 05/01/2024 1:45 PM EDT Office [place] [phone] Juanpablo Hernandez MD [facility] [place] [address] 01/30/2025 1:30 PM EDT Appointment Hematology [place] [phone] 01/30/2025 3:[address] [place] [address] Arturo Cordero MD [facility] HEMATOLOGY AND ONCOLOGY [place], [place] [phone] 01/30/2025 4:15 PM EDT Office Visit Hematology [place] [address] Arturo Cordero MD [facility] HEMATOLOGY [place] [address] Scheduled Orders Name Type Priority Associated Diagnoses Orde r Schedule Comprehensive metabolic panel (non-fasting) Lab STAT Renal cancer, left Expected: 01/13/2020 (Approximate), Expires: 07/16/2020 documented as of this encounter Results * CT Abdomen wwo [...] the number below. ? Electronically signed by: Shea Larose MD, [facility] ([phone]), at 01/13/2020 12:45 PM Narrative 01/13/2020 12:45 PM EDT EXAMINATION: CT [...] this report, please contact the number below. Josseline Machado MD IM CT ORDERABLES * XR Chest PA & Lateral (Generic) [...] this report, please contact the number below. Josseline Machado MD IMG DX ORDERABLES documented in this encounter Visit Diagnoses Diagnosis Renal cancer, left- Primary Renal cancer, left Renal cancer, left documented in this encounter Care Teams Screedman/Laborer Relationship Specialty Start Date End Date Luis E Narayan MD [facility] [place] [address] PCP - General Family Medicine 03/26/19 01/19/22 documented as of this encounter
--- OUTSIDE RECORDS SUMMARY | 2024-03-04 21:28 | XMS_ITS | Encounter Summary ---
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 H/O heart artery stent Procedures Echocardiogram Transthoracic([facility]) Luis E Narayan MD [facility] [address] [place] [address] [facility] [place] [address] Referral ID Status Reason Start Date Expiration Date V isits Requested Visits Authorized [id number] Closed Specialty Service Requested 06/25/2019 08/23/2019 1 1 Reason for Visit * Reason Comments Follow-up Encounter Details Date Type Department Care Team (Late st Contact Info) Description 06/21/2019 1:00 PM EST Office Visit Family Medicine at [facility] [address] [place] [address] Luis E Narayan MD [facility] [address] [place] [address] Type 2 diabetes mellitus without long-term current use of insulin; Healthcare maintenance; Peripheral edema; 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; H/O heart artery stent x4 LCX; Bipolar affective disorder in remission Social History Tobacco Use Types Packs/Day Years [...] Sign Reading Time Taken Comments Blood Pressure 124/70 06/21/2019 12:56 PM EST Pulse 63 06/21/2019 12:56 PM EST Temperature 35.4 ??C (95.7 ??F) 06/21/2019 12:[address] Respiratory Rate - - Oxygen Saturation 96% 06/21/2019 12:56 PM EST Inhaled Oxygen Concentration - - Weight 100.7 kg (222 lb) 06/21/2019 12:56 PM EST Height 157.5 cm (5' 2) 06/21/2019 12:56 PM EST Body Mass Index 40.6 06/21/2019 12:56 PM EST documented in this encounter Progress Notes * Luis E Narayan MD - 06/21/2019 1:00 PM EST Alize Gramajo is here for Chief Complaint Patient presents with ??? Follow-up Subjective HPI: 1) Left Adrenal and Renal masses - - saw Urology recently - planning Left Retroperitoneal partial nephrectomy for 06/28 admission 2) DM, uncontrolled - saw Endocrine for nutrition education recently, found it helpful - reviewed carbs, portions, exercise, glucose monitoring - sugars 120s at home recently 3) Illness and abnormal MRI - has neuro appt 08/05/2019 - still having balance problems, brain fog, speech difficulty - had EEG ordered 05/10/2019, never scheduled 4) Cardiac - has hx IN, stent x4 - has been having worsening edema left > right ankles, grapefruit some evenings - no echo in while 5) Mood - bipolar controlled w lamotriging 75mg in morning - has been better since starting the lamotrigine - still feels she might be a little too high energy at times, would like to consider dose increase - her psychiatrist left practice, she has not established care yet ROS: See Subjective history Social History Tobacco Use ??? Smoking status: Current Every Day Smoker Packs/day: 1.00 Years: 40.00 Pack years: 40.00 Types: Cigarettes ??? Smokeless tobacco: Never Used Substance Use Topics ??? Alcohol use: No ??? Drug use: No Objective BP 124/70 Pulse 63 Temp 35.4 ??C (95.7 ??F) (Temporal) Ht 157.5 cm (5' 2) Wt 100.7 kg (222lb) SpO2 96% BMI 40.60 kg/m?? Physical Exam Constitutional: She is oriented to person, place, and time. She appears well- developed. No distress. Eyes: No scleral icterus. Cardiovascular: Normal rate. Pulmonary/Chest: Effort normal. Neurological: She is alert and oriented to person, place, and time. Skin: Skin is warm and dry. Psychiatric: She has a normal mood and affect. Mild dysarhtria 1-2+ edema left and right lower legs Lab Results Component Value Date HA1C 8.0 (H) 03/26/2019 TERELL = 6 PHQ = 3 Assessment/Plan 30 minutes of this 45 minute jnys-qv-[id number] visit were spent in discussion on the following topics: Diagnoses and all orders for this visit: Type 2 diabetes mellitus without long-term current use of insulin, uncontrolled last HA1c check butsuspect repeat today will be much better - U Albumin/Cre Ratio - Hemoglobin A1c; Future; Expected date: 06/21/2019 Healthcare maintenance - HIV Screen, 4th Generation ([facility]/CGP/APD); Future; Expected date: 06/21/2019 - Hepatitis C Antibody; Future; Expected date: 06/21/2019 Peripheral edema, CAD, heart artery stent x4 LCX - Echocardiogram Transthoracic([facility]); Future; Expected date: 06/21/2019 Will try to get this prior to surgery 06/28. Bipolar affective disorder in remission - refill lamoTRIgine (LAMICTAL) 25 mg Tablet; Take 3 tablets by mouth daily. Will also have Live Truck Technician check on EEG. Neurology in Jul as scheduled. Follow up with me in 4-6 weeks. documented in this encounter Plan of Treatment Upcoming Encounters Date Type Department Care Team (Late st Contact Info) Description 03/20/2024 9:00 AM EDT TH Visit (TeleHealth) Sleep Center at [facility] [address] [place] [phone] Denisse Hardwick, [facility] 03/20/2024 2:00 PM EDT Clinical Support Family Medicine at [facility] [address] [place] [address] Julia Low, [facility] 05/01/2024 11:20 AM EDT Appointment Mammography/[place] [address] Rodney Paidlla MD [address] [place] [address] 05/01/2024 1:45 PM EDT Office Visit Ophthalmology at [place] [phone] Juanpablo Hernandez MD [facility] [place] [address] 01/30/2025 1:30 PM EDT Appointment Hematology and Oncology at [place] [phone] 01/30/2025 3:[address] Scan at [place] [phone] Arturo Cordero MD [facility] DR HEMAT[place] [address] 01/30/2025 4:15 PM EDT Office Visit Hematology [place] [phone] Arturo Cordero MD [facility] DR HEMATOLOGY [place] [address] documented as of this encounter Procedures Procedure Name Priority Date/Time Associated Diagnosis Comments HC HEPATITIS C ANTIBODY Routine 06/21/2019 2:09 PM EST Healthcare maintenance HC HIV SCREEN, 4TH GENERATION Routine 06/21/2019 2:09 PM EST Healthcare maintenance HC HEMOGLOBIN A1C Routine 06/21/2019 2:0 9 PM EST Type 2 diabetes mellitus without long-term current use of insulin URINE HOLD Routine 06/21/2019 1:30 PM EST HC MICROALBUMIN, URINE Routine 06/21/2019 1:30 PM EST Type 2 diabetes mellitus without long-term current use of insulin documented in this encounter Results * ECHO COMPLETE (06/27/2019 11:38 AM EST) EF 71 HEARTLAB SYSTEM Anatomical Region Laterality Modality Other 06/27/2019 Narrative 06/27/2019 11:52 AM EST Procedure: ?Transthoracic Echocardiogram Patient: ?JOSSELINE Tran ?(Age): 1960(58y) Med Rec#: ? [id number] ?Sex: ?F ? Site Loc: ? [facility] ?Ht / Wt: ??158(cm)/101(kg) Pt. Loc: ?Echo Lab ?BSA: ?2.01 Study Date: ?? 06/27/2019 ?Pt. Type: Outpatient Tape: ? Referring: PIOTR Reading: Fawntonya Jeff Stone ??([id number]) Labor Expediter: Sumit Ratliff RDCS Diagnosis: *Edema, unspecified (R60.9) *Atherosclerotic heart disease of choctaw coronary artery with unspecified angina pectoris (I25.119) *Presence of coronary angioplasty implant and graft (Z95.5) BP: ? 148/84 SUMMARY: 1. The left ventricular chamber size is [...] LV segmental WMAs are no longer present. Findings ? : Study Quality: ? Adequate Left Ventricle: ? The left ventricular chamber size is normal. ?Mild concentric left ventricular hypertrophy is observed. ?There is no evidence of LVOT obstruction. ?No ventricular septal defect is visualized. ?There is normal global left ventricular systolic function. ?The quantitative left ventricular ejection fraction by biplane Richardson's method is 71%. ?There are no left ventricular segmental wall motion abnormalities. ?Left ventricular diastolic function is abnormal. ?Left sided filling pressure could not be assessed by Doppler. Left Atrium: ? The left atrium is severely dilated. ?The inter-atrial septum appears lipomatous. Right Ventricle: ? The right ventricle is normal in size. ?Right ventricular global systolic function is normal. ?The estimated pulmonary artery systolic pressure is 36 mmHg. ?The estimated right atrial pressure is 3 mmHg. Right Atrium: ? The right atrium is normal in size. Aortic Valve: ? The aortic valve is not well visualized. ?The aortic valve leaflets are mildly thickened. ?The peak instantaneous trans-valvular gradient across ??the aortic valve is 25 mmHg. ?The mean trans-valvular gradient across ??the aortic valve is 15 mmHg. ?The calculated aortic valve area is 2 cm2. ?There is no evidence of aortic valve stenosis. ?There is no evidence of aortic regurgitation. Mitral Valve: ? The mitral valve appears normal in structure and function. ?There is trace mitral regurgitation present. Tricuspid Valve: ? The tricuspid valve appears normal in structure and function. ?There is trace tricuspid regurgitation present. Pulmonic Valve: ? The pulmonic valve appears normal in structure and function. ?There is trace pulmonic regurgitation present. Pericardium: ? The pericardium appears normal and there is no evidence of a pericardial effusion. Aorta: ? The aortic root is normal in size. ?There is mild dilatation of the ascending aorta. Pulmonary Artery: ? The main pulmonary artery appears normal. Venous: ? The inferior vena cava appears normal in size. ?There is a greater than 50% respiratory change in the inferior vena cava dimension. Misc: ? There is no hemodynamically significant valve disease. ?See remainder of report for additional findings. ?Two-dimensional echo, spectral Doppler and color Doppler performed. Chambers 2D ?Value ?Units (Range) ? IVSd (2D) ? 1.2 ?cm ? LVPWd (2D) ?1.2 ?cm ? IVS:LVPW ratio (2D) 1 ?ratio ? RWT (2D) ?0.5 ?ratio ? RWT PW (2D) ? 0.5 ?ratio ? LVIDd (2D) ?5.2 ?cm ? LVIDs (2D) ?3.2 ?cm ? LVIDd (2D) index ?2.6 ?cm/m2 ? LVIDs (2D) index ?1.6 ?cm/m2 ? LV FS (2D) ?38 ? % ? EF Teichholz (2D) ?? 67 ? % ? Ao root diameter (2D2.9 ?cm (2.1 - 3.6) ? Ascending Ao ?3.7 ?cm (2 - 3.5) ? Volumes/Mass ?Value ?Units (Range) ? LA Area 4 CH ?26.6 ? cm2 (<21) ? LA ESV BP (A/L) inde53.2 ? ml/m2 ? RA AREA 4CH ? 18.1 ? cm2 ? LV ESV SP 4CH (MOD) 26.2 ? ml ? LV ESV SP 2CH (MOD) 31.9 ? ml ? LV EDV BP ? 100.8 ?ml ? LV ESV BP ? 28.8 ? ml ? LV EDV BP index ? 50.1 ? ml/m2 ? LV ESV BP index ? 14.3 ? ml/m2 ? BP EF (MOD) ? 71 ? % ? LV mass (2D) ?244.8 ?g ? LV mass (2D) index ??121.8 ?g/m2 ? Diastolic/Systolic Function ?Value ?Units (Range) ? MV E-wave Vmax ?1 ?m/sec ? MV deceleration slby937.5 ?msec ? MV A-wave Vmax ?1 ?m/sec ? MV E:A ratio ?1 ?ratio ? LV septal e' Vmax ?? 0.1 ?m/sec ? LV lateral e' Vmax ??0.1 ?m/sec ? LV average e' Vmax ??0.1 ?m/sec ? LV E:e' septal ratio13.9 ? ratio ? LV E:e' lateral rati10.8 ? ratio ? LV average E:e' rati12.1 ? ratio ? Aortic Valve ?Value ?Units (Range) ? AV Vmax ? 2.5 ?m/sec ? AV VTI ?54.1 ? cm ? AV peak gradient ?25 ? mmHg ? AV mean gradient ?15 ? mmHg ? LVOT diameter ? 2 ?cm ? LVOT Vmax ? 1.6 ?m/sec ? LVOT VTI ?38.2 ? cm ? LVOT peak gradient ??10.4 ? mmHg ? LVOT mean gradient ??6.1 ?mmHg ? DOI (VTI) ? 0.7 ?ratio ? DOI (Vmax) ?0.6 ?ratio ? SV LVOT ? 121.4 ?ml ? CO LVOT ? 9.2 ?l/min ? Cardiac index ? 4.6 ?l/min/m2 ? LAUREN (continuity Vmax2 ?cm2 ? LAUREN (continuity Vmax1 ?cm2/m2 ? LAUREN (continuity VTI)2.2 ?cm ? LUAREN (continuity VTI)1.1 ?cm2/m2 ? Tricuspid Valve ?Value ?Units (Range) ? TR Vmax ? 2.9 ?m/sec ? TR peak gradient ?33.1 ? mmHg ? RAP ? 3 ?mmHg ? RVSP ?36 ? mmHg ? Wall Motion: Segment Name ?Rest ? Base-Anteroseptal ?? Normal ? Base-Anterior ? Normal ? Base-Anterolateral ??Normal ? Base-Posterolateral Normal ? Base-Inferior ? Normal ? Base-Inferoseptal ?? Normal ? Mid-Anteroseptal ?Normal ? Mid-Anterior ?Normal ? Mid-Anterolateral ?? Normal ? Mid-Posterolateral ??Normal ? Mid-Inferior ?Normal ? Mid-Inferoseptal ?Normal ? Dover-Septal ? Normal ? Dover-Anterior ? Normal ? [place]-Lateral ?Normal ? [place]-Inferior ? Normal ? [place]-Tip ?Normal ? This report has been electronically signed by: Jeff Barraza MD ? 06/27/2019 11:51:50 Images reviewed and interpretation verified [facility] Cardiac Ultrasound Laboratory Procedure Note Jeff Barraza MD - 06/27/2019 Procedure: Transthoracic Echocardiogram Patient: JOSSELINE LOMAX(Age): 1960(58y) Med Rec#: [id number] Sex: F Site Loc: [facility] Ht / Wt: 158(cm)/101(kg) Pt. Loc: Echo Lab BSA: 2.01 Study Date: 06/27/2019 Pt. Type: Outpatient Tape: Referring: PIOTR Reading: Jeff Barraza ([id number]) Labor Expediter: Sumit Ratliff RDCS Diagnosis: *Edema, unspecified (R60.9) *Atherosclerotic heart disease of choctaw coronary artery with unspecified angina pectoris (I25.119) *Presence of coronary angioplasty implant and graft (Z95.5) BP: 148/84 SUMMARY: 1. The left ventricular chamber size is [...] LV segmental WMAs are no longer present. Findings : Study Quality: Adequate Left Ventricle: The left ventricular chamber size is normal. Mild concentric left ventricular hypertrophy is observed. There is no evidence of LVOT obstruction. No ventricular septal defect is visualized. There is normal global left ventricular systolic function. The quantitative left ventricular ejection fraction by biplane Richardson's method is 71%. There are no left ventricular segmental wall motion abnormalities. Left ventricular diastolic function is abnormal. Left sided filling pressure could not be assessed by Doppler. Left Atrium: The left atrium is severely dilated. The inter-atrial septum appears lipomatous. Right Ventricle: The right ventricle is normal in size. Right ventricular global systolic function is normal. The estimated pulmonary artery systolic pressure is 36 mmHg. The estimated right atrial pressure is 3 mmHg. Right Atrium: The right atrium is normal in size. Aortic Valve: The aortic valve is not well visualized. The aortic valve leaflets are mildly thickened. The peak instantaneous trans-valvular gradient across the aortic valve is 25 mmHg. The mean trans-valvular gradient across the aortic valve is 15 mmHg. The calculated aortic valve area is 2 cm2. There is no evidence of aortic valve stenosis. There is no evidence of aortic regurgitation. Mitral Valve: The mitral valve appears normal in structure and function. There is trace mitral regurgitation present. Tricuspid Valve: The tricuspid valve appears normal in structure and function. There is trace tricuspid regurgitation present. Pulmonic Valve: The pulmonic valve appears normal in structure and function. There is trace pulmonic regurgitation present. Pericardium: The pericardium appears normal and there is no evidence of a pericardial effusion. Aorta: The aortic root is normal in size. There is mild dilatation of the ascending aorta. Pulmonary Artery: The main pulmonary artery appears normal. Venous: The inferior vena cava appears normal in size. There is a greater than 50% respiratory change in the inferior vena cava dimension. Misc: There is no hemodynamically significant valve disease. See remainder of report for additional findings. Two-dimensional echo, spectral Doppler and color Doppler performed. Chambers 2D Value Units (Range) IVSd (2D) 1.2 cm LVPWd (2D) 1.2 cm IVS:LVPW ratio (2D) 1 ratio RWT (2D) 0.5 ratio RWT PW (2D) 0.5 ratio LVIDd (2D) 5.2 cm LVIDs (2D) 3.2 cm LVIDd (2D) index 2.6 cm/m2 LVIDs (2D) index 1.6 cm/m2 LV FS (2D) 38 % EF Teichholz (2D) 67 % Ao root diameter (2D2.9 cm (2.1 - 3.6) Ascending Ao 3.7 cm (2 - 3.5) Volumes/Mass Value Units (Range) LA Area 4 CH 26.6 cm2 (<21) LA ESV BP (A/L) inde53.2 ml/m2 RA AREA 4CH 18.1 cm2 LV ESV SP 4CH (MOD) 26.2 ml LV ESV SP 2CH (MOD) 31.9 ml LV EDV BP 100.8 ml LV ESV BP 28.8 ml LV EDV BP index 50.1 ml/m2 LV ESV BP index 14.3 ml/m2 BP EF (MOD) 71 % LV mass (2D) 244.8 g LV mass (2D) index 121.8 g/m2 Diastolic/Systolic Function Value Units (Range) MV E-wave Vmax 1 m/sec MV deceleration [id number] msec MV A-wave Vmax 1 m/sec MV E:A ratio 1 ratio LV septal e' Vmax 0.1 m/sec LV lateral e' Vmax 0.1 m/sec LV average e' Vmax 0.1 m/sec LV E:e' septal ratio13.9 ratio LV E:e' lateral rati10.8 ratio LV average E:e' rati12.1 ratio Aortic Valve Value Units (Range) AV Vmax 2.5 m/sec AV VTI 54.1 cm AV peak gradient 25 mmHg AV mean gradient 15 mmHg LVOT diameter 2 cm LVOT Vmax 1.6 m/sec LVOT VTI 38.2 cm LVOT peak gradient 10.4 mmHg LVOT mean gradient 6.1 mmHg DOI (VTI) 0.7 ratio DOI (Vmax) 0.6 ratio SV LVOT 121.4 ml CO LVOT 9.2 l/min Cardiac index 4.6 l/min/m2 LAUREN (continuity Vmax2 cm2 LAUREN (continuity Vmax1 cm2/m2 LAUREN (continuity VTI)2.2 cm LAUREN (continuity VTI)1.1 cm2/m2 Tricuspid Valve Value Units (Range) TR Vmax 2.9 m/sec TR peak gradient 33.1 mmHg RAP 3 mmHg RVSP 36 mmHg Wall Motion: Segment Name Rest Base-Anteroseptal Normal Base-Anterior Normal Base-Anterolateral Normal Base-Posterolateral Normal Base-Inferior Normal Base-Inferoseptal Normal Mid-Anteroseptal Normal Mid-Anterior Normal Mid-Anterolateral Normal Mid-Posterolateral Normal Mid-Inferior Normal Mid-Inferoseptal Normal Dover-Septal Normal Dover-Anterior Normal Dover-Lateral Normal Dover-Inferior Normal Dover-Tip Normal This report has been electronically signed by: Jeff Barraza MD 06/27/2019 11:51:50 Images reviewed and interpretation verified [facility] Cardiac Ultrasound Laboratory Luis E Narayan MD ECHO ORDERABLES * (ABNORMAL) Hemoglobin A1c (06/21/2019 2:09 PM EST) Hemoglobin A1c 7.2(H) 4.3 - 5.6 % [facility] [...] 36: Suppl. 1, S67-74 Estimated Average Glucose 161 mg/dL [facility] Comment: eAG [...] into estimated average glucose values. ??Diabetes Care 2008:31(8):8976-1960. Blood specimen (specimen) 06/21/2019 2:09 PM EST 06/21/2019 5:58 PM EST Narrative Resulting Agency Comment Spec In Lab Luis E Narayan MD CHEMISTRY ORDERABLE S Performing Organization Address City/State/[facility] Co de Phone Number [facility] [place] [address] * Hepatitis C Antibody (06/21/2019 2:09 PM EST) Hepatitis C Antibody Negative Negative [facility] Blood specimen (specimen) 06/21/2019 2:09 PM EST 06/21/2019 6:01 PM EST Narrative Resulting Agency Comment Spec In Lab Luis E Narayan MD CHEMISTRY ORDERABLE S [facility] [place] [address] * HIV Screen, 4th Generation ([facility]/CGP/APD) (06/21/2019 2:09 PM EST) HIV Ab/Ag Screen Negative Negative [facility] Comment: This 4th Generation HIV test [...] MD CHEMISTRY ORDERABLE S Performing Organization Address City/[facility]/ZIP Co de Phone Number [facility] [place] [address] * Urine Hold (06/21/2019 1:30 PM EST) Hold, Urine Sample in lab. [facility] Urine specimen (specimen) Urine / Unknown 06/21/2019 1:30 PM EST 06/21/2019 4:25 PM EST Luis E Narayan MD URINE ORDERABLES [facility] [place] [address] * U Albumin/Cre Ratio (06/21/2019 1:30 PM EST) Albumin / Creatinin Ratio, Urine Not Calculated 0 - 29 mcg/mg Cr [facility] Comment: Reference Ranges: <30 [...] 2, 357? 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 H/O heart artery stent x4 LCX Postsurgical percutaneous transluminal coronary angioplasty status Bipolar affective disorder in remission Peripheral edema Edema 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
--- OUTSIDE RECORDS SUMMARY | 2024-03-04 21:28 | XMS_ITS | Encounter Summary ---
Author Organization [facility] Address [facility] [place] [address] Care Team Providers Care Supervisor Electric Motor Testing Name Role Phone Luis E Narayan MD Primary Care Provider Encounter Details Date Type Department Care Team (Late st Contact Info) Description 07/02/2019 [place] [address] Avila Medina MD [facility] [place] [address] Social History Tobacco Use Types Packs/Day Years [...] encounter Miscellaneous Notes * Telephone Encounter - Nelson Bustos - 07/02/2019 9:51 AM EST PHONE: [phone] Pt is calling after discharge yesterday. She states she was supposed to have pain medication at herdischarge but there was nothing left at her pharmacy. She also states that while a pt here she was given Flexeril for neck pain and also Lidocaine patches and she is wondering about a prescription for that. She states she only got about 3 hours of sleep last nite due to her discomfort level. Will page a resident to call her back. documented in this encounter Plan of Treatment Upcoming Encounters Date Type Department Care Team (Late st Contact Info) Description 03/20/2024 9:00 AM EDT TH Visit (TeleHealth) Sleep Center at [facility] [address] [place] [phone] Denisse Hardwick, [facility] 03/20/2024 2:00 PM EDT Clinical Support Family Medicine at [facility] [address] [place] [phone] Julia Low, [facility] 05/01/2024 11:20 AM EDT Appointment Mammography/DXA at [place] [phone] Rodney Padilla MD [address] [place] [address] 05/01/2024 1:45 PM EDT Office Visit Ophthalmology at [place] [phone] Juanpablo Hernandez MD [facility] [place] [address] 01/30/2025 1:30 PM EDT Appointment Hematology and Oncology at [place] [phone] 01/30/2025 3:[address] [place] [address] Arturo Cordero MD [facility] HEMATOLOG[place] [address] 01/30/2025 4:15 PM EDT Office Visit Hematology [place] [address] Arturo Cordero MD [facility] [place] [address] documented as of this encounter Visit Diagnoses Not on filedocumented in this encounter Care Teams Supervisor Electric Motor Testing Relationship Specialty Start Date End Date Luis E Narayan MD [facility] [address] [place] [address] PCP - General Family Medicine 03/26/19 01/19/22 documented as of this encounter
--- OUTSIDE RECORDS SUMMARY | 2024-03-04 21:28 | XMS_ITS | Encounter Summary ---
Author Organization [facility] [place] [address] Care Team Providers Care Senior Informatica Etl Developer Name Role Phone Luis E Narayan MD Primary Care Provider Reason for Visit * Auth/Cert Specialty Diagnoses / Procedures Referred By Gonzalez t Referred To Contact Diagnoses Renal Mass Procedures PRO LAP, PARTIAL NEPHRECTOMY LAPAROSCOPY, PARTIAL NEPHRECTOMY, ROBOTIC ASSIST (WRVU 27.41) MODIFIER ROBOT,DAVINCI XI Referral ID Status Reason Start Date Expiration Date Visits Re quested Visits Authorized [id number] 1 1 Encounter Details Date Type Department Care Team (Late st Contact Info) Description 06/28/2019 8:30 AM EST - 06/28/2019 12:58 PM EST [place] [address] Avila Medina MD [facility] [address] ROBOTIC LAPAROSCOPY, PARTIAL NEPHRECTOMY (WRVU 27.41) Social History Tobacco Use Types Packs/Day Years [...] Sign Reading Time Taken Comments Blood Pressure 146/75 06/28/2019 7:50 AM EST Pulse 59 06/28/2019 7:50 AM EST Temperature 36.6 ??C (97.9 ??F) 06/28/2019 7:50 AM ES T Respiratory Rate 18 06/28/2019 7:50 AM EST Oxygen Saturation 99% 06/28/2019 7:50 AM EST Inhaled Oxygen Concentration - - Weight 100.7 kg (222 lb) 06/28/2019 7:50 AM EST Height 161.3 cm (5' 3.5) 06/28/2019 7:50 AM EST Body Mass Index 38.71 06/28/2019 7:50 AM EST documented in this encounter Discharge Summaries * Debi, Camilla R - 06/28/2019 1:45 PM EST UROLOGY SERVICE Inpatient - Discharge Summary Patient Name: Alize Gramajo Patient Age: 58 y.o. : 1960 Attending Physician: Avila Medina MD Date of Admission: 06/28/2019 Date of Discharge: 07/01/2019 Diagnosis: Active Hospital Problems Diagnosis ??? Renal mass, left Resolved Hospital Problems No resolved problems to display. Operations/Major Procedures: Operations: 06/28/2019 Surgeon(s) and Role: * Avila Medina MD - Primary * Juanpablo Helm MD - Resident: Procedure(s): LAPAROSCOPY, PARTIAL NEPHRECTOMY, ROBOTIC ASSIST (WRVU 27.41) MODIFIER ROBOT,DAVINCI XI HPI: Taken from Dr. Medina's 05/27/2019 Clinic Note - Alize Gramajo is a 58 y.o. female who comes for f/u of a cystic renal mass and an adrenal mass.Patient had a screening U/S as she had a brother who of renal cancer (unclear if there is a true familial syndrome.The patient has no symptoms of renal cancer. She was admitted for a viral syndrome in January and has been sick since.She has multiple complalints, she has urinary urgency and wears depens. No bloodAppetite is OK weight is down a little. There is no new bone pain. The patient has no symptoms related to the adrenal masses.although has essential HTN, and some easy bruising Hospital Course: Alize Gramajo was admitted to [facility] on 06/28/2019 through the Same Day Surgery program after undergoing the procedure noted above. The intra-operative findings were as below: Findings: Uncomplicated robotic-assisted laparoscopic left partial NTX via retroperitoneal approach Moderate sized entry into left collecting system; closed primarily Warm Ischemia time 16 min 45 seconds After adequate recovery from anesthesia in the PACU, the patient was transferred to the floor. Her bergman was removed on POD#1 without issue. Her YANDY creatinine was serum level and her drain was removed day of discharge (POD#3). Alize Gramajo's pain was adequately controlled, she was maintaining adequate oxygen saturation on room air, and was hemodynamically stable. She was tolerating a diet without abdominal complaints andvoiding adequately. WBC and Hgb were stable. She was ambulating independently. Alize Gramajo was evaluated by the Urology team and deemed medically stable for discharge on 07/01/19. Updated Allergies/ADRs: Allergies Allergen Reactions ??? Codeine Phosphate Nausea And Vomiting ??? Erythromycin Base Nausea Only ??? Nsaids (Non-Steroidal Anti-Inflammatory Drug) Nausea And Vomiting Pending Lab Data at Discharge: None Outpatient Services/Studies: Basic Metabolic Panel (non-fasting) Standing Status: Future Standing Exp. Date: 08/29/19 Condition at Discharge: Stable Important Studies and Lab Data: Labs: Recent Labs 06/29/19 0257 06/28/19 1430 WBC 10.8* -- HGB 11.9 12.5 HCT 37.3 37.8 PLATELET 277 -- Recent Labs 06/29/19 0257 06/28/19 1430 NA 144 144 K 4.2 4.3 CL 107 108* CO2 26 25 BUN 10 10 CREATININE 0.82 0.80 CALCIUM 8.9 8.9 Studies: none Discharge Examination: Last value Range last 12 hrs Temperature Temp: 36.4 ??C (97.5 ??F) Temp: [36.4 ??C (97.5 ??F)] Heart Rate Heart Rate: 61 Heart Rate: -- Blood Pressure BP: 134/74 BP: (121-134)/(63-74) Respiratory Rate Resp: 16 Resp: [16-19] SpO2 SpO2: 93 % SpO2: [91 %-95 %] I/Os: I/O last 3 completed shifts: In: 2300 [P.O.:2295; I.V.:5] Out: 4162 [Urine:4100; Other:62] No intake/output data recorded. Physical Exam: General: NAD, up and walking, pleasant, conversant HEENT: PERRL, anicteric sclerae CVS: RRR Pulm: CTAB Abd: soft, nontender, non-distended, incisions c/d/i, previous YANDY site dressing c/d/i : no bergman Skin: warm, dry Neuro: AOx3 Discharge to: Home Discharge Conditions/Prognosis: Stable Discharge Medications: The following medications have been prescribed for you. If you notice any adverse reactions to your medications, please contact your primary care physician immediately or go tothe nearest Emergency Department. Your Medications New Medications Dose Details ondansetron 4 mg Tab Commonly known as: Zofran Take 1 tablet by mouth every 8 hours as needed for Nausea. 4 mg Quantity: 20 tablet Refills: 0 Continued medications with new dosing Dose Details clopidogrel 75 mg Tab Commonly known as: Plavix Take 1 tablet by mouth daily. Restart post-operatively on 07/05 Start taking on: July 05, 2019 What changed: ?? additional instructions ?? These instructions start on July 05, 2019. If you are unsure what to do until then, ask yourdoctor or other care provider. 75 mg Quantity: 90 tablet Refills: 3 Continued medications, unchanged Dose Details Advair HFA 115-21 mcg/actuation Hfaa Generic drug: fluticasone propion-salmeterol Refills: 0 amLODIPine 5 mg Tab Commonly known as: Norvasc Take 1 tablet by mouth daily. 5 mg Quantity: 90 tablet Refills: 4 aspirin EC 81 mg Tbec Take 81 mg by mouth daily. 81 mg Refills: 0 budesonide-formoterol 80-4.5 mcg/actuation Hfaa Commonly known as: SYMBICORT Inhale 2 puffs into the lungs 2 times daily. 2 puff Quantity: 1 Inhaler Refills: 11 fluticasone propionate 50 mcg/actuation Spsn Commonly known as: FLONASE 50 sprays by Each Nare route 2 times daily. 50 spray Quantity: 16 g Refills: 0 lamoTRIgine 25 mg Tab Commonly known as: LaMICtal Take 3 tablets by mouth daily. 75 mg Quantity: 90 tablet Refills: 1 loratadine 10 mg Tab Commonly known as: Claritin Take 1 tablet by mouth daily. 10 mg Quantity: 90 tablet Refills: 0 losartan 100 mg Tab Commonly known as: Cozaar Take 1 tablet by mouth daily. 100 mg Quantity: 90 tablet Refills: 3 metFORMIN 1,000 mg Tab Commonly known as: GLUCOPHAGE Take 1 tablet by mouth 2 times daily (with meals). 1,000 mg Quantity: 180 tablet Refills: 1 metoprolol succinate XL 25 mg Tablet sr Commonly known as: Toprol XL Take 1 tablet by mouth daily. 25 mg Quantity: 30 tablet Refills: 3 nicotine 21 mg/24 hr Pt24 Commonly known as: NICODERM CQ Place 1 patch onto the skin daily as needed. 1 patch Quantity: 30 patch Refills: 11 nitroGLYcerin 0.4 mg Subl Commonly known as: Nitrostat Place 1 tablet under the tongue See Admin Instructions. 0.4 mg Quantity: 30 tablet Refills: 0 omeprazole 20 mg Tbec Take 1 tablet by mouth daily. 20 mg Quantity: 90 tablet Refills: 3 PROVENTIL HFA INHL Refills: 0 simvastatin 10 mg Tab Commonly known as: Zocor Take 1 tablet by mouth daily. 10 mg Quantity: 90 tablet Refills: 4 traZODone 100 mg Tab Commonly known as: Desyrel Take 1 tablet by mouth nightly. 100 mg Quantity: 90 tablet Refills: 3 Follow-up Care & Plans: For questions, orders or appointments related to your continuing care after your discharge, you or your provider should contact the physician that managed that part of your care. Urology Clinic: [phone] PCP: Luis E Narayan MD, . Please follow-up with your PCP in 1-2 weeks or sooner as needed. Scheduled Appointments: The following appointments have been scheduled on your behalf: Future Appointments and Orders Future Appointments and Orders Future Appointments Provider Department Dept Phone 07/09/2019 2:30 PM [facility] Neurodiagnostic at [facility] Arrive at: [facility] [place] [phone] 07/17/2019 9:20 AM LAB, THREE L Lab [facility] Arrive at: [place] 3L [phone] 07/17/2019 10:20 AM Avila Medina MD Urology at [facility] Arrive at: [facility] [place] [facility] 5B [phone] 07/22/2019 1:00 PM Luis E Narayan MD Primary Care at [facility] Arrive at: [facility] [address] [address] [place] [phone] 08/05/2019 1:45 PM Amy Aguiar MD Neurology at [facility] Arrive at: [facility] [place] 3C [phone] 08/13/2019 7:30 PM SLEEP, PHYSICIAN Sleep Center at [facility] Arrive at: [address] [place] [phone] Future Orders Complete By Expires Basic Metabolic Panel (non-fasting) [LAB15 Custom] 07/12/2019 (Approximate) 08/29/2019 Process Instructions: INCLUDES: Calcium, BUN, Creat, GFR, Glucose, Lytes Scheduling Instructions: Comments: Questions: Outpatient Services/Studies: Basic Metabolic Panel (non-fasting) Standing Status: Future Standing Exp. Date: 08/29/19 Instructions Given to Patient at Discharge: Patient Instructions DISCHARGE INSTRUCTIONS CALL YOUR PHYSICIAN IF: ?? You have a fever greater than 101 degrees F within one month of your surgery. ?? You have diarrhea or vomiting for more than 24 hours, or stop having bowel movements or passing gas. ?? You have worsening pain, not controlled with your pain medication. ?? You develop redness, swelling, or new drainage from your wound. ?? You have any other acute change in your health status. ?? You have blood in your urine! MEDICATIONS You may take acetaminophen (Tylenol) for pain control. Please avoid NSAIDs (e.g., ibuprofen, naproxen) given your use of Aspirin and Plavix in the setting of recent renal surgery. You may restart your Plavix 7 days after surgery (Monday07/05/19) DRIVING RESTRICTIONS Do not operate a vehicle if you are too sore from surgery to enter or exit your vehicle comfortably, or if you are too sore to easily check your blind spot. No driving while using prescription pain medications. ACTIVITIES No heavy lifting. You may lift what is comfortable to lift with one arm. Nothing greater than 10 pounds (e.g., a full gallon jug) until re-evaluated by your physician. Discuss return to work or school with your physician. Take several slow, short walks each day for the first two weeks, and gradually increase your distance. Exercise will assist in your recovery. DIET Eat a well-balanced diet. Fresh fruits, vegetables and fiber-containing foods are recommended. Thiswill assist in wound healing. WOUND CARE You can shower as usual and wash the incisions gently. Pat the incision dry with a clean, dry towel. Do not soak the wound (avoid spas, pools, and bathtubs) until it is fully healed. Do not use creams, oils, or ointments on the wound. Keep the wound open to air if it is not draining. Do not remove sutures or shavon. COMFORT Some incision soreness can be expected. Take your pain medication as needed and prescribed. Slowly decrease your use of pain medication as pain lessens. CONTACT INFORMATION To contact your provider or change your appointment, please call the Urology clinic at during business hours or during off- hours with urgent questions. FOLLOW-UP APPOINTMENT Future Appointments and Orders Future Appointments and Orders Future Appointments Provider Department Dept Phone 07/09/2019 2:30 PM [facility] DIAGNOSTICS Neurodiagnostic at [facility] [place]rive at: [place] [phone] 07/17/2019 9:20 AM LAB, THREE L Lab [address] [place] [address] Arrive at: [facility] 07/17/2019 10:20 AM Avila Medina MD Urology at [facility] Arrive at: [facility] Area [phone] 07/22/2019 1:00 PM Luis E Narayan MD Primary Care at [facility] Arrive at: [address] [facility] [phone] 08/05/2019 1:45 PM Amy Aguiar MD Neurology at [facility] Arrive at: [facility] Area [phone] 08/13/2019 7:30 PM SLEEP, PHYSICIAN Sleep Center at [facility] Arrive at: [address] [place] [phone] Future Orders Complete By Expires Basic Metabolic Panel (non-fasting) [LAB15 Custom] 07/12/2019 (Approximate) 08/29/2019 Process Instructions: INCLUDES: Calcium, BUN, Creat, GFR, Glucose, Lytes Scheduling Instructions: Comments: Questions: General Instructions None Call your doctor if: Please call your doctor immediately or go to an Emergency Department if you notice worsening pain not controlled by pain medications, uncontrolled headache, vision changes, chest pain, difficulty breathing, persistent nausea and vomiting, new redness or swelling in any extremities, new onset weakness or changes in sensation, or for any fevers greater than 101.3 F. Your care was managed by the Urologic Surgery Team at [facility]. If you have any questions or concerns, please feel free to contact us. Provider Contact Information: Urology Clinic: [phone] [facility] (after business hours): CC: Luis E Narayan MD Signed: Camilla Carrera MD 07/01/2019 Discharge References/Attachments None Associated attestation - Ashlyn Campos MD - 07/01/2019 3:05 PM EST I have seen and examined the patient and reviewed the history documented and I agree with the details as written. I have reviewed the laboratory data and viewed the pertinent imaging. The assessment and plan were formulated in discussion with me and I agree with them as documented. Ashlyn Campos MD documented in this encounter Discharge Instructions * Patient Instructions* Camilla Carrera - 06/28/2019 1:41 PM EST DISCHARGE INSTRUCTIONS CALL YOUR PHYSICIAN IF: ?? You have a fever greater than 101 degrees F within one month of your surgery. ?? You have diarrhea or vomiting for more than 24 hours, or stop having bowel movements or passing gas. ?? You have worsening pain, not controlled with your pain medication. ?? You develop redness, swelling, or new drainage from your wound. ?? You have any other acute change in your health status. ?? You have blood in your urine! MEDICATIONS You may take acetaminophen (Tylenol) for pain control. Please avoid NSAIDs (e.g., ibuprofen, naproxen) given your use of Aspirin and Plavix in the setting of recent renal surgery. You may restart your Plavix 7 days after surgery (Monday07/05/19) DRIVING RESTRICTIONS Do not operate a vehicle if you are too sore from surgery to enter or exit your vehicle comfortably, or if you are too sore to easily check your blind spot. No driving while using prescription pain medications. ACTIVITIES No heavy lifting. You may lift what is comfortable to lift with one arm. Nothing greater than 10 pounds (e.g., a full gallon jug) until re-evaluated by your physician. Discuss return to work or school with your physician. Take several slow, short walks each day for the first two weeks, and gradually increase your distance. Exercise will assist in your recovery. DIET Eat a well-balanced diet. Fresh fruits, vegetables and fiber-containing foods are recommended. Thiswill assist in wound healing. WOUND CARE You can shower as usual and wash the incisions gently. Pat the incision dry with a clean, dry towel. Do not soak the wound (avoid spas, pools, and bathtubs) until it is fully healed. Do not use creams, oils, or ointments on the wound. Keep the wound open to air if it is not draining. Do not remove sutures or shavon. COMFORT Some incision soreness can be expected. Take your pain medication as needed and prescribed. Slowly decrease your use of pain medication as pain lessens. CONTACT INFORMATION To contact your provider or change your appointment, please call the Urology clinic at during business hours or during off- hours with urgent questions. FOLLOW-UP APPOINTMENT Future Appointments and Orders Future Appointments and Orders Future Appointments Provider Department Dept Phone 07/09/2019 2:30 PM [facility] Neurodiagnostic at [facility] Arrive at: [facility] [place] [address]C [phone] 07/17/2019 9:20 AM LAB, THREE L Lab [facility] Arrive at: [place] 3L [phone] 07/17/2019 10:20 AM Avila Medina MD Urology at [facility] Arrive at: [facility] [place] [address] 5B [phone] 07/22/2019 1:00 PM Luis E Narayan MD Primary Care at [facility] Arrive at: [address] [facility] [phone] 08/05/2019 1:45 PM Amy Aguiar MD Neurology at [facility] Arrive at: [facility] [place] [phone] 08/13/2019 7:30 PM SLEEP, PHYSICIAN Sleep Center at [facility] Arrive at: [address] [place] [phone] Future Orders Complete By Expires Basic Metabolic Panel (non-fasting) [LAB15 Custom] 07/12/2019 (Approximate) 08/29/2019 Process Instructions: INCLUDES: Calcium, BUN, Creat, GFR, Glucose, Lytes Scheduling Instructions: Comments: Questions: documented in this encounter Medications at Time of Discharge Medication Sig Dispensed Refills Start Date End Date aspirin EC 81 mg Tablet, Delayed Release (E.C.) Take 81 mg by mouth daily. clopidogrel (PLAVIX) 75 mg Tablet Take [...] 04/09/2019 06/22/2020 fluticasone propionate (FLONASE) 50 mcg/actuation Hopkins, Suspension 50 sprays by Each Nare route [...] as of this encounter Progress Notes * Yue Moore RN - 07/01/2019 4:28 PM EST Patient Name: Alize Gramajo Patient Age: 58 y.o. Birthdate: 1960 Admit date: 06/28/2019 Attending Physician: Avila Medina MD Pt discharged at about 4:30pm. AVS provided and reviewed with pt and her daughter. Questions encouraged and answered to pt satisfaction. Pt ambulated out of the building. * Julissa Morris - 07/01/2019 10:18 AM EST Regional Anesthesia Progress Note Date of Encounter: 07/01/2019 Responsible Attending: Aris Quintana MD House Staff / Associate Provider: Julissa Morris MD ID: Patient is POD# 3 s/p nephrectomy for which the patient received a left Quadratus Lumborum block for post-operative pain control. Subjective: Today the patient has adequate pain control and at present states pain is 4 out of 10. Patient has been able to tolerate PO analgesics and an oral diet without nausea or vomiting. Patientis without any complaints this morning. Objective: Temp: [36.4 ??C (97.5 ??F)-37 ??C (98.6 ??F)] Heart Rate: [61-62] Resp: [16-19] BP: (100-137)/(60-76) SpO2: [91 %-96 %] Heart Rate from SpO2: [53 bpm-73 bpm] Gen: Patient resting comfortably in her chair. No bruising, erythema, swelling or discharge at insertion site. Sensory: Sensation is intact to cold over Abdomen Motor: Motor exam not performed. No evidence of local anesthetic toxicity Coags: No results found for: INR, PT, PTT Meds: Medication list reviewed Assessment: Peripheral nerve block for post-operative pain control, currently with adequate pain control. Block appears to be resolving appropriately. Plan: ?? Due to complete resolution of peripheral nerve block, the regional anesthesia team will stop actively following this patient. Please page the Regional Anesthesia Team ([phone]) with any questions or concerns. ?? Continue current management per primary service. ?? Thank you for the opportunity to have participated in the care of this patient. Julissa Morris MD Regional Team pager [phone] * Camilla Carrera - 06/30/2019 12:02 PM EST Urology Inpatient Progress Note ID: Alize Gramajo is a 58 y.o. female with history of ASCVD ([place] with Stent 2007, on plavix), DM2, HTN, Neuropathy, LUTS and left renal mass now POD#2 s/p RA left partial nephrectomy. 24hr events: ?? Pain control much improved ?? Patient ambulating, no nausea, tolerating adequate PO ?? YANDY creatinine negative ?? Bergman removed, passing voiding trial Subjective:Denies n/v/cp/sob, reports pain O: Last value Range last 24hrs Temperature Temp: 36.8 ??C (98.2 ??F) Temp: [36.4 ??C (97.5 ??F)-37 ??C (98.6 ??F)] Heart Rate Heart Rate: 61 Heart Rate: [61-66] Blood Pressure BP: 100/60 BP: (100-137)/(60-90) Respiratory Rate Resp: 17 Resp: [16-20] SpO2 SpO2: 96 % SpO2: [90 %-96 %] 06/29 0701 - 06/30 0700 In: 2483 [P.O.:1475; I.V.:1008] Out: 2785 [Urine:2700] Physical Exam: General: NAD, up and walking, pleasant, conversant HEENT: PERRL, anicteric sclerae CVS: RRR Pulm: CTAB Abd: soft, nontender, non-distended, drain ss (85cc), incisions c/d/i : no bergman Skin: warm, dry Ext: no c/c/e, cap refill <2sec Recent Labs 06/29/19 0257 06/28/19 1430 WBC 10.8* -- HGB 11.9 12.5 HCT 37.3 37.8 PLATELET 277 -- Recent Labs 06/29/19 0257 06/28/19 1430 NA 144 144 K 4.2 4.3 CL 107 108* CO2 26 25 BUN 10 10 CREATININE 0.82 0.80 CALCIUM 8.9 8.9 Microbiology: none Imaging: none ASSESSMENT: Alize Gramajo is a 58 y.o. female who is POD#2 s/p RA left partial nephrectomy. Patient progressing towards d/c goals. Pain more improved, ambulating with walking, tolerating diet, voiding well. Will keep in house for one more night to ensure good strength prior to discharge given she is alone often. D/c YANDY on day of discharge. PLAN: NEURO: Pain well controlled. Home lamictal, trazadone CV: Home metoprolol, amlodipine, losartan, simvastatin. Restart ASA POD#1 Restart Plavix POD#7 PULM: Home inhalers GI: ADAT : voiding well without bergman FEK: No IVF ID: Samantha-operative CTX HEME: SQH ENDO: SSI, holding home PROPHYLAXIS: SQH DISPO: Floor status, Full Code Camilla Carrera MD 06/30/19 Urology, PGY-2 Associated attestation - Ashlyn Campos MD - 06/30/2019 7:40 PM EST I have seen and examined the patient and reviewed the history documented and I agree with the details as written. I have reviewed the laboratory data and viewed the pertinent imaging. The assessment and plan were formulated in discussion with me and I agree with them as documented. Ashlyn Campos MD * Allison Sánchez RN - 06/29/2019 4:57 PM EST Pt arrived to unit from [facility] earlier in shift. VSS w/ pt on RA. HR regular, lung sounds are clear w/diminished bases bilaterally. Non-productive cough at this time. YANDY drain in place w/ SSF output-see chart. Pt requesting to use home medications (inhalers), and requesting that Flonase be ordered for her-notified MD team. Pt voiding spontaneously w/o issue and is passing flatus, last BM noted to be prior to sx on 06/27/19 per pt. Pt appears asleep at this time and no s/s of acute distress at this time. Will continue to monitor. * Alize Bernard RN - 06/29/2019 7:30 AM EST Patient Name: Alize Gramajo Patient Age: 58 y.o. Birthdate: 1960 Admit date: 06/28/2019 Attending Physician: Avila Medina MD S/p Left partial nephrectomy 0650 patient now c/o Severe left side and mid abd pain; moaning crying, cannot move in bed, cannot tolerate touch. Tylenol and diluadid given no relief. Pt states I am desperate, I can't move it hurts too much YANDY intact output WNL Labs wnl Neb given Bergman output WNL Pt unable to rosario food. Resident paged - redirected this freelance writer to someone else on urology team. Dr. Campos paged with request to see pt now. * Alize Bernard RN - 06/28/2019 10:22 PM EST Patient Name: Alize Gramajo Patient Age: 58 y.o. Birthdate: 1960 Admit date: 06/28/2019 Attending Physician: Avila Medina MD S/p partial nephrectomy left ?? Blood glucose assessed at 2200 BG = 148 however [facility] glucometer not working - PACU glucometer used and this result did not flow to this pt's lab result or edh. No insulin treatment required at this time. * Alize Bernard RN - 06/28/2019 10:05 PM EST Per nursing handoff at shift change a body fluid YANDY specimen was sent to lab however lab called approx 1900 to inform nsg that spec had hemolyzed/ Lab contacted by this freelance writer at 2145 and new specimen has been sent from YANDY drain for body fluid creatinine. Lab indicates that these samples hemolyze easily and may not be resulted. Will monitor results. UPDATE Body fluid creatinine resulted: 1.0 @2149 06/28/2019 (no reference range avail) * Christine Wu RN - 06/28/2019 5:15 PM EST Patient arrived from PACU to room SSU 3 via bed. YANDY intact & set to suction, labs obtained. L flank dressing C/D/I. Lap sites (x4) C/D/I, open to air. Alert and oriented, vitals stable as documented, complaints of ABD/flank pain. Will check MD orders and continue to monitor. Report received from VEDA Putnam prior to patient's arrival. * Cara Crane RN - 06/28/2019 2:51 PM EST 1348: Pt arrived to PACU04 from OR, vital signs stable, alarms audible and set appropriately, arterial line leveled and zeroed, urethral catheter draining clear yellow urine, concern for pt airway obstruction while sedated, oral airway insertion attempted by anesthesia, respiratory therapy called to set up home CPAP, will continue to monitor 1430: Pt restless, moaning and crying intermittently, reports L abdominal pain and nausea, unable to verbalize pain on number scale, will treat with ordered medications (see MAR), repositioned to R side lying, will continue to monitor 1445: respiratory therapy called for sustained O2 saturation 85% on CPAP, 4L O2 bled into CPAP by respiratory therapy, O2 sat returned to 93%-94%, will continue to monitor 1515: L brachial arterial line removed by Dr. Schmidt 1545: Pt resting in bed, appears comfortable, converses appropriately, states pain is tolerable anddenies nausea, tolerating ice chips and sips of water, . Report given to VEDA River. * Camilla Carrera - 06/28/2019 2:14 PM EST Urology Inpatient Progress Note ID: Alize Gramajo is a 58 y.o. female with history of ASCVD (NH with Stent 2007, on plavix), DM2, HTN, Neuropathy, LUTS and left renal mass now POD#1 s/p RA left partial nephrectomy. 24hr events: ?? Pain not well controlled, doesn't feel she can get out of bed though refusing additional offerings of pain medications ?? YANDY creatinine 1 ?? No nausea/vomiting ?? Good PO intake (1649) Subjective:Denies n/v/cp/sob, reports pain O: Last value Range last 24hrs Temperature Temp: 36.2 ??C (97.2 ??F) Temp: [36.2 ??C (97.2 ??F)-36.6 ??C (97.9 ??F)] Heart Rate Heart Rate: 68 Heart Rate: [59-70] Blood Pressure BP: 118/57 BP: (118-146)/(57-75) Respiratory Rate Resp: 22 Resp: [18-22] SpO2 SpO2: 99 % SpO2: [98 %-99 %] No intake/output data recorded. Physical Exam: General: NAD, resting comfortably, pleasant, conversant HEENT: PERRL, anicteric sclerae CVS: RRR Pulm: CTAB Abd: soft, nontender, non-distended, drain ss (79cc), incisions c/d/i : Bergman in place draining CYU Skin: warm, dry Ext: no c/c/e, cap refill <2sec No results for input(s): WBC, HGB, HCT, PLATELET, PT, INR, PTT in the last 72 hours. No results for input(s): NA, K, CL, CO2, BUN, CREATININE, GLUCOSE, CALCIUM, MAGNESIUM, PHOS in the last 72 hours. Microbiology: none Imaging: none ASSESSMENT: Alize Gramajo is a 58 y.o. female who is POD# 1 s/p RA left partial nephrectomy. D/c bergman Restart ASA today ADAT D/c fluids Regarding pain, OK for NSAIDs if will accept, given lidoderm patches. Patient quite anxious and needs to be continuously educated that pain meds in the acute post-op are important to allow her to breath well and get out of bed. Patient must be OOB today. Will remove bergman this morning to help that. PLAN: NEURO: Pain well controlled. Home lamictal, trazadone CV: Home metoprolol, amlodipine, losartan, simvastatin. Restart ASA POD#1 Restart Plavix POD#7 PULM: Home inhalers GI: ADAT : bergman d/c today FEK: D/c fluids ID: Samantha-operative CTX HEME: SQH ENDO: SSI, holding home PROPHYLAXIS: SQH DISPO: Floor status, Full Code Camilla Carrera MD 06/28/19 Urology, PGY-2 Associated attestation - Ashlyn Campos MD - 06/29/2019 2:28 PM EST I have seen and examined the patient and reviewed the history documented and I agree with the details as written. I have reviewed the laboratory data and viewed the pertinent imaging. The assessment and plan were formulated in discussion with me and I agree with them as documented. Would add the following: HD stable Labs stable Needs to work on pain control / mobilize Ashlyn Campos MD documented in this encounter H&P Notes * Juanpablo Helm MD - 06/28/2019 7:39 AM EST Urology PreOp H&P Alize Gramajo 58 y.o. female with ASCVD (NH w/ stents 11 years ago, on Plavix), DMII, HTN, Neuropathy, LUTS, with left cystic renal mass suspicious (Bosniak 3- 4) for a [id number] renal cancer who presents with robotic-assisted left pNTX. No changes to medications, no fevers, chills, headaches, chest pain, new cough, nausea, emesis, constipation, diarrhea, difficulty urinating, one sided numbness or tingling sensation. Denies recent hospitalization. She has been holding her Plavix for 7 days. Lab Results Component Value Date URINECULTURE (A) 06/21/2019 10,000-49,000 cfu/ml mixed mucosal nimisha Note: Culture shows multiple bacterial species suggesting mucosal contamination. If symptoms continue to indicate urinary tract infection, submit a new specimen. Past Medical History: Diagnosis Date ??? Antiplatelet or antithrombotic long-term use aspirin, plavix ??? Asthma uses inhalerswith good effect ??? Atherosclerosis of [place] coronary artery of [place] heart with angina pectoris 10/09/2007 History of [...] STENT PLACEMENT Placed at ??? [facility] No current facility-administered medications on file prior to encounter. Current Outpatient Medications on File Prior to Encounter Medication Sig Dispense Refill ??? simvastatin (ZOCOR) 10 mg Tablet Take 1 tablet by mouth daily. 90 tablet 4 ??? fluticasone propionate (FLONASE) 50 mcg/actuation Hopkins, Suspension 50 sprays by Each Nare route [...] ??? ALBUTEROL SULFATE (PROVENTIL HFA INHL) ??? nitroGLYcerin (NITROSTAT) 0.4 mg Tablet, Sublingual Place 1 tablet under the tongue See Admin Instructions. (Patient not taking: Reported on 06/21/2019) 30 tablet 0 ??? amLODIPine (NORVASC) 5 mg Tablet Take 1 tablet by mouth daily. (Patient not taking: Reported on06/21/2019) 90 tablet 4 ??? clopidogrel (PLAVIX) 75 mg Tablet Take 1 tablet by mouth daily. 90 tablet 3 Allergies Allergen Reactions ??? Codeine Phosphate Nausea And Vomiting ??? Erythromycin Base Nausea Only ??? Nsaids (Non-Steroidal Anti-Inflammatory Drug) Nausea And Vomiting There were no vitals filed for this visit. Exam: General: Alert and oriented x4 Heart: RRR Lungs: No audible wheezing Abdomen: Soft, non-tender/distended Extremities: Warm, no edema No results found for this or any previous visit (from the past 24 hour(s)). Assessment/Plan Proceed with scheduled procedure Procedure(s): LAPAROSCOPY, PARTIAL NEPHRECTOMY, ROBOTIC ASSIST (WRVU 27.41) MODIFIER ROBOT,DAVINCI XI Associated attestation - Avila Medina MD - 06/28/2019 1:51 PM EST Attending Addendum I have seen the patient and reviewed the history and examination. I agree with the details as written. The assessment and plan were formulated in discussion with me and I agree with them as documented. I would add the following: Ready to proceed with a LEFT partial nephrectomy I had called her last night about our research protocol to record her procedure for development of fusion imaging. We discussed it further today. She would like to participate in the study. She signed and received a copy of the informed consent. She understands the risks, voluntary and experimentalnature of the study All questions answered. Avila Medina documented in this encounter Miscellaneous Notes * Op Note - Avila Medina MD - 07/01/2019 3:45 PM EST [facility] [place] Patient Name: Alize Gramajo : [id number] MR#: [id number] Case Date: 06/28/2019 Surgeon: Surgeon(s) and Role: * Avila Medina MD - Primary * Juanpablo Helm MD - Resident Registered Nurse University Relations Director: Felisha Sher RN Preoperative diagnosis: renal mass Postoperative diagnosis: Renal cancer Procedure(s) (LRB): LAPAROSCOPY, PARTIAL NEPHRECTOMY, ROBOTIC ASSIST (WRVU 27.41) (Left) MODIFIER ROBOT,DAVINCI XI (N/A) Findings: Left renal mass. Completely excised via retroperitoneal approach. Margins grossly negative. Warm ischemia time 16 minutes 45 seconds. Anesthesia: General Estimated Blood Loss: 50 mL Specimens removed during surgery: Order Name Source Comment Collection Info Order Time SPECIMEN TO PATHOLOGY OR09 08015 renal mass Left renal mass and fat excision 06/28/2019 12:59 PM Time specimen removed from patient: 12:57 PM Number of tissue samples (in container) 1 Drains: Surgical Closure: Primary Closure - skin incision is closed but with open spaces for wires, ja, drains or other devices Disposition: awakened from anesthesia, extubated and taken to the recovery room in a stable condition, having suffered no apparent untoward event. Condition: doing well without problems (Please see the Surgical Encounter Summary for any Implant and Specimen details pertinent to this patient.) HPI/Surgical Indications: The patient is a 58-year-old woman with an incidentally discovered solid and cystic left renal masssuspicious for renal carcinoma for discussion of the options for management of her mass she has elected a left partial nephrectomy this will be performed through a retroperitoneal approach Procedure Description: After informed consent was obtained and adequate general endotracheal anesthesia induced the the patient was placed on the operating table with a left side up and Secured to Prevent Any Neuropraxia or Other Injury. A timeout was performed. An incision was made over the midpoint of the iliac crest midway between the iliac crest and the 12th rib. The incision was taken down through the muscular tissue to incise the lumbodorsal fascia and into the retroperitoneal space. Using digital dissection the fats and other tissue was manipulated off the anterior abdominal wall around the area of the incision. A balloon dilator was placed which was insufflated to create a space in the retroperitoneum. This was done under direct vision. The balloon was removed and a trocar was placed in the retroperitoneum and insufflated and inspected. Additional trocar was placed just anterior to the erector [place] posteriorly and using this the peritoneum was reflected off the anterior abdominal wall by gentle blunt dissection to expose a large retroperitoneal space and leave the peritoneal envelope intact. 2 additional robotic ports were placed and an medical assistant per diem port, air seal was placed. Using sharp dissection the retroperitoneal space was enlarged to allow identification of the psoas muscle and the kidney. The kidney was reflected medially and dissection was undertaken to allow identification of the renal artery and renal vein both of these were encircled. We then dissected additio daquan to allow identification of several branches of the renal artery. Using ultrasound the position of the mass on the kidney was identified. The fascia was then dissected from around the area of the mass to expose normal renal parenchyma around the entire circumference of the mass. Ultrasound wasagain used to confirm the presence of the complex cystic mass to identify the borders for dissection which were then marked with electrocautery. A bulldog clamp was placed on the branch of the renal arteries appeared to supply the mass indocyanine green was administered intravenously this demonstrated that there was incomplete ischemia therefore 2 additional bulldogs were placed on the main renal artery. Using sharp dissection the mass was excised with grossly negative margins removed from the field and placed in a bag. The excision led to wide opening of the collecting system the base of the mass was then sutured using 2 running 2 oh VueLock sutures. This allowed excellent closure of the collecting system and closure of the majority of the vasculature which had been incised. The clamp was taken off the renal artery for any ischemia time of 16 minutes and 45 seconds. Excellent control of hemorrhage had been obtained with the deep sutures and no additional sutures were needed. The remainder of the excision sitewas then closed with interrupted 2-0 Vicryl sliding renography sutures which were then tightened down after placement of FloSeal and the base of the excision. The perinephric fat flopped over the area of the excision as an additional layer of closure. The mass was placed in a bag. Excellent hemostasis was assured. A 19 Dima drain was placed. The port sites were removed under direct vision the camera port site was enlarged the mass was removed 0 Vicryl sutures were used to close the muscular layers around the excision site skin was closed with 4-0 Monocryl the patient was awoken from anesthesia and transferred to the recovery room in stable condition there were no complications. Infection Bundle used? No Attestation: I performed the procedure with the help of the resident was present for the entire procedure * Initial Assessments - Rani Emanuel RN - 07/01/2019 9:32 AM EST Office of Care Management Assessment Medical record reviewed. Plan of care and patient status discussed with direct care RN and/or Care Team in multidisciplinary rounds. Screen[age] y.o. female here for Left partial nephrectomy Present on Admission: ??? Renal mass, left Patient has not been admitted to a hospital within the last 30 days. Patient receiving hospital care under Observation status. Admission order reviewed. Primary Insurance on file: [employer] Secondary Insurance on file: N/A Primary care provider on file: Luis E Narayan MD [phone] Advance Directive on file and Code Status: <no information>, Full Code Patient???s Functional Status: Independent using front wheel walker Living Situation: Home with support of family and friends [address] [facility] [id number] Supports:Family and friends Assessment: Patient with no apparent RNCM/SW needs at this time. No housing, transportation, insurance, resources concerns identified at this time. Supports in place to achieve a safe post-hospital transition. No identified barriers to accessing necessary care and/or follow-up after discharge. Plan: Patient to d/c to Home via car when medically ready. inpatient services director/Cisco Engineer will continue to follow patient???s progress and remain available if situation changes for coordination of care, psychosocial support and/or discharge planning. Rani Emanuel RN Pager [phone] Extension [phone] * Plan of Care - Allison Sánchez RN - 06/30/2019 3:11 PM EST Problem: Patient Care Overview Goal: Plan of Care Review Outcome: Ongoing (Interventions Implemented as Appropriate) 06/29/19 0025 06/30/19 0809 Coping/Psychosocial Plan Of Care Reviewed With -- patient Plan of Care Review Progress progress toward functional goals as expected -- Goal: Fall Prevention-Safe Patient Handling Outcome: Ongoing (Interventions Implemented as Appropriate) 06/30/19 0809 06/30/19 1400 Daily Care Interventions Self-Care Promotion BADL personal objects within reach;independence encouraged -- Diego Fall Risk History of Falling 0 -- Secondary Diagnosis 15 -- Ambulatory Aids 15 -- Intravenous Therapy/Heparin/Saline Lock 20 -- Gait/Transferring 0 -- Mental Status 0 -- Score 50 -- OTHER Diego Fall Risk High -- Restraint Interventions Safety Promotion/Fall Prevention fall prevention program maintained;nonskid shoes/slippers when outof bed;safety round/check completed -- Positioning Body Position independent -- Activity Activity Type ambulated in richard -- Activity Assistance Provided -- independent Assistive Device Utilized -- front-wheel walker Goal: Infection Control Outcome: Ongoing (Interventions Implemented as Appropriate) 06/30/19 0809 Safety Interventions Isolation Precautions standard precautions maintained Infection Prevention environmental surveillance performed Coping Strategies Supportive Measures active listening utilized;positive reinforcement provided Goal: Interdisciplinary Rounds/Family Conf Outcome: Ongoing (Interventions Implemented as Appropriate) 06/29/19 0022 Interdisciplinary Rounds/Family Conf Participants patient;nursing;physician Problem: Skin Integrity Impairment, Risk/Actual (Adult) Goal: Identify Related Risk Factors and Signs and Symptoms Related risk factors and signs and symptoms are identified upon initiation of Human Response Clinical Practice Guideline (CPG) Outcome: Ongoing (Interventions Implemented as Appropriate) 06/30/19 1503 Skin Integrity Impairment, Risk/Actual Skin Integrity Impairment, Risk/Actual: Related Risk Factors surgery/procedure;sensory impairment Signs and Symptoms (Skin Integrity Impairment) edema Goal: Skin Integrity/Wound Healing Patient will demonstrate the desired outcomes by discharge/transition of care. Outcome: Ongoing (Interventions Implemented as Appropriate) 06/30/19 1503 Skin Integrity Impairment, Risk/Actual (Adult) Skin Integrity/Wound Healing making progress toward outcome OUTCOME EVALUATION NOTE: OUTCOME SUMMARY: VSS w/ pt on RA. Pt has reported various pain levels this shift, prn interventions provided and effective per pt; upon pain reassessment pt appears asleep and shows no acute s/s of distress. Pt requested PO Zofran to be given earlier in shift d/t pt voicing fear of getting nauseated after prn Dilaudid was being given. Blood sugars monitored per orders, SSI given for meal coverage, correction doses administered/or held per [facility] order parameters in place. HR regular, lung sounds are diminished w/ rhonchi noted bilaterally. Pt w/ productive cough, thick white sputum; pulmonary toilet exercises encouraged. Abd rounded, hypoactive bowel sounds present; pt reports passing flatus. YANDY drain in placew/ SSF output/amount has been decreasing in amounts over shift. Pt ambulating in halls frequently, independently w/ FWW. No additional s/s of distress noted. Call light in reach, safety measures in place. PLAN MOVING FORWARD: Monitor VS, pain, YANDY output; ambulate, d/c planning INDIVIDUALIZED FALL PREVENTION INTERVENTIONS: Patient-specific fall risk factors per assessment: [current deficits]: Recent surgery, generalized weakness Assistance [level of assistance required for transfers and ambulation]: Independent Supervision [direct monitoring required during toileting and ADLs]: Independent Surveillance [continuous indirect monitoring]: Masimo, hourly rounding Patient-specific fall prevention interventions for sensory deficits provided, if applicable: [X] Yes CPG GOAL OUTCOME EVALUATION: Stable * Plan of Care - Christine Wu RN - 06/29/2019 3:07 PM EST Problem: Patient Care Overview Goal: Plan of Care Review Outcome: Ongoing (Interventions Implemented as Appropriate) 06/29/19 0025 06/29/19 1103 Coping/Psychosocial Plan Of Care Reviewed With -- patient;family Plan of Care Review Progress progress toward functional goals as expected -- OUTCOME EVALUATION NOTE: OUTCOME SUMMARY: Pain was not well controlled through midday, 6-/10 pain in the neck/back/L flank, multiple pharmacologic & nonpharmacologic remedies administered. L lap punctures (x4) are all C/D/I, L YANDY dressing replaced w/moderate amount of serosanguinous drainage. VSS, is requiring 2-4L O2 bleed into CPAP@ HS.Bergman catheter removed, UOP adequate & passed void trial. Passing flatus, no BM this shift. Fine crackles noted in bilateral lung bases, nebulizer/deep breathing/coughing/IS all performed/encourged throughout the day. Not tolerating diet well d/t frequent nausea, was able to eat a slice oftoast this afternoon. Pt was able to get OOB this afternoon for the first time since surgery, this did help her with the neck & back pain which she states is from not walking around. Pt is slowto get OOB, however, has a steady gait, ambulated multiple times w/o incident. PLAN MOVING FORWARD: Continue to monitor pain, I&O's, nutrition, & promote ambulation INDIVIDUALIZED FALL PREVENTION INTERVENTIONS: High Fall Risk Patient-specific fall risk factors per assessment: [current deficits]: Patient has a history of falling, has 2 or more active medical diagnoses, has an actively infusing IV line, has had recent surgery, uses an ambulatory aid, has generalized weakness, has tubes/drains, is taking opioid/narcotic medications for pain management, is taking (antiarrythmic, antidepressants, antipsychotic, sleep aids), forgets limitations, problems (urge/stress incontinence). Assistance [level of assistance required for transfers and ambulation]: 1 assist w/FWW Supervision [direct monitoring required during toileting and ADLs]: Hands On Surveillance [continuous indirect monitoring]: Purposeful rounding, observation by staff, NKE done at the bedside, bed/chair alarms activated, family at bedside, environmental modifications (waste basket is out of the path and the IV tubing and cords are free from the floor), assistive device available and within reach, commode at bedside, lighting adjusted for task, bed in low position, wheels locked, side rails up (x3), nonskid socks worn OOB, [place] ID band on, no restraints, and call light is within reach at all times. Patient-specific fall prevention interventions for sensory deficits provided, if applicable: [X] No CPG GOAL OUTCOME EVALUATION: Goal: Individualization & Mutuality Outcome: Ongoing (Interventions Implemented as Appropriate) 06/29/19 1451 Mutuality/Individual Preferences What Anxieties, Fears or Concerns Do You Have About Your Health or Care? I hope the pain gets better Goal: Fall Prevention-Safe Patient Handling Outcome: Ongoing (Interventions Implemented as Appropriate) 06/29/19 0025 06/29/19 1103 06/29/19 1400 Daily Care Interventions Self-Care Promotion BADL personal objects within reach;independence encouraged;BADL personal routines maintained;safe use of adaptive equipment encouraged;meal setup provided -- -- Diego Fall Risk History of Falling -- 25 -- Secondary Diagnosis -- 15 -- Ambulatory Aids -- 0 -- Intravenous Therapy/Heparin/Saline Lock -- 20 -- Gait/Transferring -- 10 -- Mental Status -- 0 -- Score -- 70 -- OTHER Diego Fall Risk -- High -- Restraint Interventions Safety Promotion/Fall Prevention -- activity supervised;fall prevention program maintained;muscle strengthening facilitated;nonskid shoes/slippers when out of bed;safety round/check completed -- Positioning Body Position -- side-lying, right -- Activity Activity Type -- -- ambulated in richard Activity Assistance Provided -- -- assistance, stand-by Assistive Device Utilized -- -- front-wheel walker Goal: Infection Control Outcome: Ongoing (Interventions Implemented as Appropriate) 06/29/19 1103 Safety Interventions Isolation Precautions standard precautions maintained Infection Prevention barrier precautions utilized;environmental surveillance performed;equipment surfaces disinfected;rest/sleep promoted;personal protective equipment utilized;single patient room provided Coping Strategies Supportive Measures active listening utilized;counseling provided;decision- making supported;goal setting facilitated;positive reinforcement provided;problem solving facilitated;journaling promoted;relaxation techniques promoted;self-care encouraged;self-reflection promoted;self-responsibility promoted;verbalization of feelings encouraged Goal: Discharge Needs Assessment Outcome: Ongoing (Interventions Implemented as Appropriate) 06/29/19 0022 Discharge Needs Assessment Concerns To Be Addressed other (see comments) Provider Choice List(s) Given yes Equipment Needed After Discharge glucometer;respiratory supplies Current Discharge Risk chronically ill Discharge Disposition still a patient Current Health Outpatient/Agency/Support Group Needs other (see comments) Anticipated Changes Related to Illness other (see comments) (TEMPORARY SELF CARE LIMITATIONS) Activity/Self Care Review of Systems Equipment Currently Used at Home respiratory supplies;glucometer Living Environment Transportation Available family or friend will provide Goal: Interdisciplinary Rounds/Family Conf Outcome: Ongoing (Interventions Implemented as Appropriate) 06/29/19 0022 Interdisciplinary Rounds/Family Conf Participants patient;nursing;physician * Plan of Care - Alzie Bernard RN - 06/29/2019 12:34 AM EST Problem: Patient Care Overview Goal: Plan of Care Review Outcome: Ongoing (Interventions Implemented as Appropriate) 06/29/19 0025 Coping/Psychosocial Plan Of Care Reviewed With patient;daughter Plan of Care Review Progress progress toward functional goals as expected Last value Range last 12 hrs Temperature Temp: 37.3 ??C (99.1 ??F) Temp: [37 ??C (98.6 ??F)-37.3 ??C (99.1 ??F)] Heart Rate Heart Rate: 71 Heart Rate: [65-71] Blood Pressure BP: 127/71 BP: (103-127)/(60-72) Respiratory Rate Resp: 20 Resp: [16-20] SpO2 SpO2: 96 % SpO2: [96 %-97 %] S/P: Laparoscopic left partial nephrectomy, with YANDY drain Outcome Summary: VSS. Lap sites x4 CDI. Dermabond. YANDY drain insertion site small amt sanguinous drainage at site; sponge dressing reinforced. YANDY patent, stripped, small to moderate s/s output from YANDY. Pt states pain currently manageable with tylenol and dilaudid 4mg PO. Rosario PO. Bergman cath in place, lg amts clear - cloudy urine output see I/O. MIVF N/S @100. Positioned on right side to alleviate pain at left surg site areas. CPAP alternating with NC 2L. History COPD, current tobacco use; nicotine patch left upper arm. Intermittent strong productive cough. Labs WDL Pt states too drowsy and in pain to walk -- would prefer to try after breakfast. Plan: Ongoing monitoring/assessments. I/O. Pain tx. Mobilize. INDIVIDUALIZED FALL PREVENTION: 1 -2 ASSIST - May use walker due to post op weakness and pain Assistance: Assisted with bed mobility to find comfortable position, will assist when OOB as needed. Supervision: Stand-by assist with initial ambulation and supervised activity as needed. Surveillance: Continuous pulse ox, call winn within reach, purposeful rounding * Brief Op Note - Juanpablo Helm MD - 06/28/2019 1:37 PM EST Brief Operative Note Patient Name: Alize Gramajo : [id number] MR#: [id number] Case Date: 06/28/2019 Surgeon: Surgeon(s) and Role: * Avila Medina MD - Primary * Juanpablo Helm MD - Resident Preoperative diagnosis: renal mass Postoperative diagnosis: left renal mass Procedure(s): LAPAROSCOPY, PARTIAL NEPHRECTOMY, ROBOTIC ASSIST (WRVU 27.41) MODIFIER ROBOT,DAVINCI XI Anesthesia: General Findings: Uncomplicated robotic-assisted laparoscopic left partial NTX via retroperitoneal approach Moderate sized entry into left collecting system; closed primarily Warm Ischemia time 16 min 45 seconds Complications: None Estimated Blood Loss: 50 mL Specimens removed during surgery: Order Name Source Comment Collection Info Order Time SPECIMEN TO PATHOLOGY [id number] [id number] renal mass Left renal mass and fat excision 06/28/2019 12:59 PM Time specimen removed from patient: 12:57 PM Number of tissue samples (in container) 1 Fluids: Intraprocedure Crystalloid Total None Fluids: ANES IntraOp Crystalloid (Filter: (AN Fluids) Medications Shown) Medication Calculated Total No medications were administered. Blood: none Urine Output: 500 mL Drains: 16 Fr Bergamn in Bladder; 19 Fr Dima Drain in left retoperitoneum Disposition: awakened from anesthesia, extubated and taken to the recovery room in a stable condition, having suffered no apparent untoward event. Condition: doing well without problems (Please see the Surgical Encounter Summary for any Implant and Specimen details pertinent to this patient.) Infection Bundle used? No ANES IntraOp Crystalloid (Filter: (AN Fluids) Medications Shown) Medication Calculated Total No medications were administered. Plan - Admit Urology; ADAT - Check YANDY Cr tomorrow morning; d/c Bergman if WNL - Restart ASA POD1, Restart Plavix POD7 - Follow up with Dr. Medina in 2 weeks with labs (requested) documented in this encounter Plan of Treatment Upcoming Encounters Date Type Department Care Team (Late st Contact Info) Description 03/20/2024 9:00 AM EDT TH Visit (TeleHealth) Sleep Center [facility] [address] [place] [phone] Denisse Hardwick, [facility] 03/20/2024 2:00 PM EDT Clinical Support Family Medicine at [facility] [address] [place] [phone] Julia Low, [facility] 05/01/2024 11:20 AM EDT Appointment Mammography/[place] [address] Rodney Padilla MD [address] [place] [address] 05/01/2024 1:45 PM EDT Office [place] [address] Juanpablo Hernandez MD [facility] [place] [address] 01/30/2025 1:30 PM EDT Appointment Hematology [place] [address] 01/30/2025 3:[address] [place] [address] Arturo Cordero MD [facility] [place] [address] 01/30/2025 4:15 PM EDT Office Visit Hematology [place] [address] Arturo Cordero MD [facility] [place] [address] documented as of this encounter Procedures Procedure Name Priority Date/Time Associated Diagnosis Comments POCT GLUCOSE Routine 07/01/2019 12:01 PM EST POCT GLUCOSE Routine 07/01/2019 7:28 AM EST POCT GLUCOSE Routine 06/30/2019 7:41 PM EST POCT GLUCOSE Routine 06/30/2019 3:15 PM EST POCT GLUCOSE Routine 06/30/2019 11:52 AM EST POCT GLUCOSE Routine 06/30/2019 7:48 AM EST POCT GLUCOSE Routine 06/30/2019 3:26 AM EST POCT GLUCOSE Routine 06/29/2019 11:36 PM EST POCT GLUCOSE Routine 06/29/2019 3:36 PM EST POCT GLUCOSE Routine 06/29/2019 12:03 PM EST HC CREATININE - NON BLOOD Routine 06/29/2019 10:29 AM EST POCT GLUCOSE Routine 06/29/2019 6:53 AM EST BMP W/FASTING GLUCOSE Routine 06/29/2019 2:57 AM EST HEMOGRAM Routine 06/29/2019 2:57 AM EST DIFFERENTIAL, AUTOMATED Routine 06/29/2019 2:57 AM EST HC CBC,PLT & AUTO DIFF Routine 06/29/2019 2:57 AM EST POCT GLUCOSE Routine 06/28/2019 9:57 PM EST HC CREATININE - NON BLOOD Routine 06/28/2019 9:49 PM EST POCT GLUCOSE Routine 06/28/2019 4:13 PM EST BMP W/FASTING GLUCOSE Routine 06/28/2019 2:30 PM EST HC HEMOGLOBIN, BLOOD Routine 06/28/2019 2:30 PM EST POCT GLUCOSE Routine 06/28/2019 2:05 PM EST SPECIMEN TO PATHOLOGY Routine 06/28/2019 12:59 PM EST SOLID TUMOR NGS PANEL Routine 06/28/2019 12:57 PM EST SURGICAL PATHOLOGY REPORT Routine 06/28/2019 12:57 PM EST BLOOD GAS ARTERIAL POC Routine 06/28/2019 11:13 AM EST MODIFIER ROBOT,DAVINCI XI 06/28/2019 8:39 AM EST Renal mass Lap, Partial Nephrectomy ([id number]) 06/28/2019 8:39 AM EST Renal mass POCT GLUCOSE Routine 06/28/2019 8:17 AM EST documented in this encounter Results * Basic Metabolic Panel (non-fasting) (07/17/2019 9:47 AM EST) Glucose 131 65 - 199 mg/dL [facility] Comment:Diabetes: >=200 mg/d L plus symptoms Blood Urea Nitrogen 17 8 - 18 mg/dL [facility] Creatinine 0.84 0.70 - 1.20 mg/dL [facility] Sodium 140 135 - 145 mmol/L [facility] Potassium 4.5 3.5 - 5.0 mmol/L [facility] Comment: Please note: ??Patients with WBC >100,000 may have falsely elevated Potassium levels. ??For accurate Potassium quantification in these patients send serum separator tube (gold top) for subsequent determinations. ??Contact the Clinical Chemistry Laboratory if there are any questions. Chloride 102 98 - 107 mmol/L [facility] Carbon Dioxide 28 22 - 31 mmol/L [facility] Anion Gap 10 5 - 15 mmol/L [facility] Calcium 10.1 8.5 - 10.5 mg/dL [facility] Est Glomerular Filtration Rate 76 >=60 mL/min/1. 73 m?? [facility] Comment: The eGFR was calculated using the CKD-EPI equation. As with all creatinine based estimates of kidney function, eGFR values calculated with the CKD-EPI equation are not accurate in patients with acute kidney failure, extremes of body mass or the acutely ill. http://Interior Define/[facility] MOOREnkf eGFR 88 >=60 mL/min/1. 73 m?? [facility] Comment: The eGFR was calculated using the CKD-EPI equation. As with all creatinine based estimates of kidney function, eGFR values calculated with the CKD-EPI equation are not accurate in patients with acute kidney failure, extremes of body mass or the acutely ill. http://Interior Define/DHnkf Blood specimen (specimen) 07/17/2019 9:47 AM EST 07/17/2019 9:56 AM EST Narrative Resulting Agency Comment Spec In Lab Avila Medina MD CHEMISTRY ORDERABLES Performing Organization Address [facility] Co de Phone Number [facility] [place] [address] * POCT Glucose (07/01/2019 12:01 PM EST) Glucose, POC 124 65 - 199 mg/dL [facility] Comment: Supplemental ranges: <140 mg/dL before meals <180 mg/dL all other times of the day Blood specimen (specimen) 07/01/2019 12:01 PM EST 07/01/2019 12:01 PM EST Avila Medina MD POINT OF CARE TEST O RDERABLES Performing Organization Address [facility] de Phone Number [facility] [place] [place] [address] * POCT Glucose (07/01/2019 7:28 AM EST) Glucose, POC 123 65 - 199 mg/dL [facility] Comment: Supplemental ranges: <140 mg/dL before meals <180 mg/dL all other times of the day Blood specimen (specimen) 07/01/2019 7:28 AM EST 07/01/2019 7:28 AM EST Avila Medina MD POINT OF CARE TEST O RDERACELY Performing Organization Address [facility] de Phone Number [facility] [place] [address] * POCT Glucose (06/30/2019 7:41 PM EST) Glucose, POC 120 65 - 199 mg/dL [facility] Comment: Supplemental ranges: <140 mg/dL before meals <180 mg/dL all other times of the day Blood specimen (specimen) 06/30/2019 7:41 PM EST 06/30/2019 7:41 PM EST Avila Medina MD POINT OF CARE TEST O RDERACELY Performing Organization Address [facility] Co de Phone Number [facility] [place] [address] * POCT Glucose (06/30/2019 3:15 PM EST) Glucose, POC 131 65 - 199 mg/dL [facility] Comment: Supplemental ranges: <140 mg/dL before meals <180 mg/dL all other times of the day Blood specimen (specimen) 06/30/2019 3:15 PM EST 06/30/2019 3:15 PM EST Avila Medina MD POINT OF CARE TEST O RDERACELY [facility] [place] [address] * POCT Glucose (06/30/2019 11:52 AM EST) Glucose, POC 146 65 - 199 mg/dL [facility] Comment: Supplemental ranges: <140 mg/dL before meals <180 mg/dL all other times of the day Blood specimen (specimen) 06/30/2019 11:52 AM EST 06/30/2019 11:52 AM EST Avila Medina MD POINT OF CARE TEST O DENISEERACELY [facility] [place] [address] * POCT Glucose (06/30/2019 7:48 AM EST) Glucose, POC 131 65 - 199 mg/dL [facility] Comment: Supplemental ranges: <140 mg/dL before meals <180 mg/dL all other times of the day Blood specimen (specimen) 06/30/2019 7:48 AM EST 06/30/2019 7:48 AM EST Avila Medina MD POINT OF CARE TEST O RDERACELY [facility] [place] [address] * POCT Glucose (06/30/2019 3:26 AM EST) Glucose, POC 124 65 - 199 mg/dL [facility] Comment: Supplemental ranges: <140 mg/dL before meals <180 mg/dL all other times of the day Blood specimen (specimen) 06/30/2019 3:26 AM EST 06/30/2019 3:26 AM EST Avila Medina MD POINT OF CARE TEST O ULISES [facility] [place] [address] * POCT Glucose (06/29/2019 11:36 PM EST) Glucose, POC 153 65 - 199 mg/dL [facility] Comment: Supplemental ranges: <140 mg/dL before meals <180 mg/dL all other times of the day Blood specimen (specimen) 06/29/2019 11:36 PM EST 06/29/2019 11:36 PM EST Avila Medina MD POINT OF CARE TEST O ULISES Performing Organization Address City/[facility]/ZIP Co de Phone Number [facility] [place] [address] * POCT Glucose (06/29/2019 3:36 PM EST) Glucose, POC 177 65 - 199 mg/dL [facility] Comment: Supplemental ranges: <140 mg/dL before meals <180 mg/dL all other times of the day Blood specimen (specimen) 06/29/2019 3:36 PM EST 06/29/2019 3:36 PM EST Avila Medina MD POINT OF CARE TEST O ULISES [facility] [place] [address] * POCT Glucose (06/29/2019 12:03 PM EST) Glucose, POC 138 65 - 199 mg/dL [facility] Comment: Supplemental ranges: <140 mg/dL before meals <180 mg/dL all other times of the day Blood specimen (specimen) 06/29/2019 12:03 PM EST 06/29/2019 12:03 PM EST Avila Medina MD POINT OF CARE TEST O ULISES Performing Organization Address [facility] Co de Phone Number [facility] [place] [address] * Creatinine Level Body Fluid YANDY Drain (06/29/2019 10:29 AM EST) Creatinine, Fluid 0.8 mg/dL [facility] Comment: No reference range is available for the specimen type submitted. ??The performance of this assay for the submitted type has not been validated and results should be interpreted accordingly and with regard to the patient's clinical status. Creat, Fld Type YANDY Drain [facility] YANDY Drain 06/29/2019 10:2 9 AM EST 06/29/2019 11:00 AM EST Narrative Resulting Agency Comment Spec In Lab Avila Medina MD BODY FLUIDS AND STOO LS ORDERABLES Performing Organization Address [facility] Phone Number [facility] [place] [address] * POCT Glucose (06/29/2019 6:53 AM EST) Glucose, POC 129 65 - 199 mg/dL [facility] Comment: Supplemental ranges: <140 mg/dL before meals <180 mg/dL all other times of the day Blood specimen (specimen) 06/29/2019 6:53 AM EST 06/29/2019 6:53 AM EST Avila Medina MD POINT OF CARE TEST O ULISES Performing Organization Address [facility] Co de Phone Number [facility] [place] [address] * (ABNORMAL) Differential, Automated (06/29/2019 2:57 AM EST) Pathologist [facility] Neutrophil % 73.6 % [facility] Neutrophil Absolute 7.96(H) 1.70 - 6.10 x10(3)/[facility] Lymph % 15.1 % [facility] Lymphocytes Abs 1.6 0.9 - 3.2 x10(3)/[facility] Monocyte % 9.2 % [facility] Monocyte Abs 1.0(H) 0.3 - 0.9 x10(3)/[facility] Eos % 1.2 % [facility] Eosinophils Abs 0.1 0.0 - 0.4 x10(3)/[facility] Basophil % 0.4 % [facility] Baso Absolute 0.0 0.0 - 0.1 x10(3)/[facility] Immature Gran % 0.50 % [facility] Comment: Immature granulocytes(IG's)percentage and absolute count will include metamyelocytes, myelocytes, and promyelocytes. Blood smears from CBCs yielding IG's will be scanned manually for concordance. If this scan disagrees with the automated IG or if promyelocytes are noted, a manual differential will be performed. Immature Gran Absolute 0.05(H) 0.00 - 0.04 x10(3)/[facility] Blood specimen (specimen) 06/29/2019 2:57 AM EST 06/29/2019 3:03 AM EST Narrative Resulting Agency Comment Spec In Lab Camilla Carrera MD HEMATOLOGY ORDERABLE S [facility] [place] [address] * (ABNORMAL) Hemogram (06/29/2019 2:57 AM EST) [facility] [address] White Blood Cell 10.8(H) 4.0 - 9.5 x10(3)/ L [facility] Red Blood Cell 4.17 4.00 - 5.21 x10(6)/ L [facility] Hemoglobin 11.9 11.7 - 15.5 gm/dL [facility] Hematocrit 37.3 35.7 - 45.8 % [facility] Mean Cell Volume 89.4 82.6 - 94.[address] [facility] Mean Cell Hemoglobin 28.5 27.1 - 32.[address] [facility] Mean Cell Hemoglobin Concentration 31.9 31.7 - 35.0 gm/dL [facility] Platelet 277 145 - 357 x10(3)/ L [facility] RDW Standard Deviation 47.2(H) 37.0 - 46.0 [facility] RDW coefficient of variation 14.4(H) 11.5 - 14.1 % [facility] Mean Platelet Volume 9.4 7.6 - 12.9 [facility] NRBC% auto 0.0 % [facility] NRBC Absolute 0.000 0.000 - 0.000 x10(3)/[facility] Blood specimen (specimen) 06/29/2019 2:57 AM EST 06/29/2019 3:03 AM EST Narrative Resulting Agency Comment Spec In Lab Camilla Carrera MD HEMATOLOGY ORDERABLE S [facility] [place] [address] * (ABNORMAL) BMP w/fasting Glucose (06/29/2019 2:57 AM EST) Glucose Fasting 116(H) 65 - 99 mg/dL [facility] Comment: ?Fasting* Glucose Interpretive Criteria Normal ?65-99 mg/dL Impaired Fasting glucose ?100-125 mg/dL Consistent with Diabetes Mellitus ? >or= 126 mg/dL *Fasting is defined as no caloric intake for at least 8 hours In the absence of unequivocal hyperglycemia a plasma glucose value of >or= 126 mg/dL should be repeated on a subsequent day. Diagnosis and Classification of Diabetes Mellitus, Position Statement from the [place] [employer]. ??Diabetes Care, Volume 33, Supplement 1, Jul 2009 Blood Urea Nitrogen 10 8 - 18 mg/dL [facility] Creatinine 0.82 0.70 - 1.20 mg/dL [facility] Sodium 144 135 - 145 mmol/L [facility] Potassium 4.2 3.5 - 5.0 mmol/L [facility] Comment: Please note: ??Patients with WBC >100,000 may have falsely elevated Potassium levels. ??For accurate Potassium quantification in these patients send serum separator tube (gold top) for subsequent determinations. ??Contact the Clinical Chemistry Laboratory if there are any questions. Chloride 107 98 - 107 mmol/L [facility] Carbon Dioxide 26 22 - 31 mmol/L [facility] Anion Gap 11 5 - 15 mmol/L [facility] Calcium 8.9 8.5 - 10.5 mg/dL [facility] Est Glomerular Filtration Rate 78 >=60 mL/min/1. 73 m?? [facility] Comment: The eGFR was calculated using the CKD-EPI equation. As with all creatinine based estimates of kidney function, eGFR values calculated with the CKD-EPI equation are not accurate in patients with acute kidney failure, extremes of body mass or the acutely ill. http://Interior Define/DHMCnkf eGFR 91 >=60 mL/min/1. 73 m?? [facility] Comment: The eGFR was calculated using the CKD-EPI equation. As with all creatinine based estimates of kidney function, eGFR values calculated with the CKD-EPI equation are not accurate in patients with acute kidney failure, extremes of body mass or the acutely ill. http://Interior Define/DHMCnkf Blood specimen (specimen) 06/29/2019 2:57 AM EST 06/29/2019 3:03 AM EST Narrative Resulting Agency Comment Spec In Lab Avila Medina MD CHEMISTRY ORDERABLES Performing Organization Address [facility] Phone Number [facility] [place] [address] * POCT Glucose (06/28/2019 9:57 PM EST) Glucose, POC 148 65 - 199 mg/dL [facility] Comment: Supplemental ranges: <140 mg/dL before meals <180 mg/dL all other times of the day Blood specimen (specimen) 06/28/2019 9:57 PM EST 06/28/2019 9:57 PM EST Avila Medina MD POINT OF CARE TEST O RDERABLES Performing Organization Address [facility] Phone Number [facility] [place] [address] * Creatinine Level Body Fluid YANDY Drain (06/28/2019 9:49 PM EST) Creatinine, Fluid 1.0 mg/dL [facility] Comment: No reference range is available for the specimen type submitted. ??The performance of this assay for the submitted type has not been validated and results should be interpreted accordingly and with regard to the patient's clinical status. Creat, Fld Type YANYD Drain [facility] YANDY Drain 06/28/2019 9:49 PM EST 06/28/2019 10:09 PM EST Narrative Resulting Agency Comment Spec In Lab Avila Medina MD BODY FLUIDS AND STOO LS ORDERABLES Performing Organization Address [facility] Co de Phone Number [facility] [place] [address] * POCT Glucose (06/28/2019 4:13 PM EST) Glucose, POC 116 65 - 199 mg/dL [facility] Comment: Supplemental ranges: <140 mg/dL before meals <180 mg/dL all other times of the day Blood specimen (specimen) 06/28/2019 4:13 PM EST 06/28/2019 4:13 PM EST Avila Medina MD POINT OF CARE TEST O RDERABLES Performing Organization Address City/State/[facility] Co de Phone Number [facility] [place] [address] * (ABNORMAL) BMP w/fasting Glucose (06/28/2019 2:30 PM EST) Glucose Fasting 147(H) 65 - 99 mg/dL [facility] Comment: ?Fasting* Glucose Interpretive Criteria Normal ?65-99 mg/dL Impaired Fasting glucose ?100-125 mg/dL Consistent with Diabetes Mellitus ? >or= 126 mg/dL *Fasting is defined as no caloric intake for at least 8 hours In the absence of unequivocal hyperglycemia a plasma glucose value of >or= 126 mg/dL should be repeated on a subsequent day. Diagnosis and Classification of Diabetes Mellitus, Position Statement from the [place] [employer]. ??Diabetes Care, Volume 33, Supplement 1, Jul 2009 Blood Urea Nitrogen 10 8 - 18 mg/dL [facility] Creatinine 0.80 0.70 - 1.20 mg/dL [facility] Sodium 144 135 - 145 mmol/L [facility] Potassium 4.3 3.5 - 5.0 mmol/L [facility] Comment: Please note: ??Patients with WBC >100,000 may have falsely elevated Potassium levels. ??For accurate Potassium quantification in these patients send serum separator tube (gold top) for subsequent determinations. ??Contact the Clinical Chemistry Laboratory if there are any questions. Chloride 108(H) 98 - 107 mmol/L [facility] Carbon Dioxide 25 22 - 31 mmol/L [facility] Anion Gap 11 5 - 15 mmol/L [facility] Calcium 8.9 8.5 - 10.5 mg/dL [facility] Est Glomerular Filtration Rate 81 >=60 mL/min/1. 73 m?? [facility] Comment: The eGFR was calculated using the CKD-EPI equation. As with all creatinine based estimates of kidney function, eGFR values calculated with the CKD-EPI equation are not accurate in patients with acute kidney failure, extremes of body mass or the acutely ill. http://Interior Define/[facility] MOOREnkf eGFR 94 >=60 mL/min/1. 73 m?? [facility] Comment: The eGFR was calculated using the CKD-EPI equation. As with all creatinine based estimates of kidney function, eGFR values calculated with the CKD-EPI equation are not accurate in patients with acute kidney failure, extremes of body mass or the acutely ill. http://Interior Define/DHnkf Blood specimen (specimen) 06/28/2019 2:30 PM EST 06/28/2019 2:59 PM EST Narrative Resulting Agency Comment Spec In Lab Avila Medina MD CHEMISTRY ORDERABLES Performing Organization Address City/[facility]/ZIP Co de Phone Number [facility] [place] [address] * Hemoglobin and Hematocrit, blood (06/28/2019 2:30 PM EST) Hemoglobin 12.5 11.7 - 15.5 gm/dL [facility] LABORATORY Hematocrit 37.8 35.7 - 45.8 % [facility] Blood specimen (specimen) 06/28/2019 2:30 PM EST 06/28/2019 2:59 PM EST Narrative Resulting Agency Comment Spec In Lab Avila Medina MD HEMATOLOGY ORDERABLE S Performing Organization Address City/[facility]/ZIP Co de Phone Number [facility] [place] [address] * POCT Glucose (06/28/2019 2:05 PM EST) Glucose, POC 133 65 - 199 mg/dL [facility] Comment: Supplemental ranges: <140 mg/dL before meals <180 mg/dL all other times of the day Blood specimen (specimen) 06/28/2019 2:05 PM EST 06/28/2019 2:05 PM EST Avila Medina MD POINT OF CARE TEST O RDLESLEY Performing Organization Address [facility] Co de Phone Number [facility] [place] [place] [address] * Specimen to Pathology (06/28/2019 12:59 PM EST) AP Specimen 06/28/2019 12:5 9 PM EST 06/28/2019 12:[address] [facility] - 06/28/2019 12:59 PM EST Specimen requisition ordered. ??Separate Pathology report to follow Avila Medina MD PATHOLOGY/CYTOLOGY O [email or web address].[email or web address] Performing Organization Address [facility] Co de Phone Number [facility] [place] [address] * Solid Tumor NGS Panel (06/28/2019 12:57 PM EST) Tissue specimen (specimen) 06/28/2019 12:57 PM EST 05/28/2020 1:28 PM EST Narrative Resulting Agency Comment Spec In Lab Avila Medina MD PATHOLOGY/CYTOLOGY O RDLESLEY Performing Organization Address [facility] Co de Phone Number [facility] [place] [place] [address] * Surgical Pathology Report (06/28/2019 12:57 PM EST) Final Diagnosis [id number] ? [facility]; A The signing pathologist has (i) examined the relevant preparation(s) for the specimen(s) and (ii) rendered or confirmed the diagnosis(es). . ?Surgical Pathology DIAGNOSIS Specimen Parts: ?? A Specimen ? Procedure: ??Partial nephrectomy ? Specimen Laterality: ?? Left Tumor ? Tumor Site: ??Lower pole (per imaging report) ? Histologic Type: ?? Clear cell renal cell carcinoma ? Histologic Grade: ?? G3 ? Tumor Size: ?? 3.0 x 1.2 x 1.1 cm ? Tumor Focality: ?? Unifocal ? Tumor Extension: ?? Tumor limited to kidney ? Sarcomatoid Features: ?? Not identified ? Rhabdoid Features: ?? Not identified ? Tumor Necrosis: ?? Not identified ? Lymphovascular Invasion: ?? Not identified Margins ? Margins: ??Uninvolved by invasive carcinoma Lymph Nodes ? Regional Lymph Nodes: ?? No lymph nodes submitted or found Pathologic Stage Classification (pTNM, AJCC 8th Edition) ? Primary Tumor (pT): ?? pT1a ? Regional Lymph Nodes (pN): ?? pNX Additional Findings ? Pathologic Findings in Nonneoplastic Kidney: ?None identified ? Adrenal Gland: ?? Not present Tumor Block(s): ?? A4 Normal Block(s): ?? A10 [facility] August 2018 Annual Release SPECIFIED PARTS: A - Left renal mass and fat (partial nephrectomy): ??- Clear cell renal cell carcinoma (3.0 cm), ISUP Grade 3 of 4. ??- Margins negative for carcinoma. ??- See synoptic report for additional details and staging. Electronically signed by: ??Stan COLVIN, Christine Pablo Verified: ??07/04/2019 ?Pathologist Performed at: ??-[facility] [place], [place], [place] DISCUSSION Whole slide scan: [id number] A6-1 CLINICAL INFORMATION Specimen Submitted: A - Left renal mass and fat Clinical History and Diagnosis: Renal mass . SPECIMEN PROCESSING A - Labeled/Fixative: Left renal mass and fat, fresh. Quantity/Size/Mark ght: Two, 8 x 7.5 x 3 cm. SPECIMEN DESCRIPTION Resection Specimen: Intact, partial nephrectomy. LESION Size: 3 x 1.2 x 1.1 cm. Color: Yellow. Consistency: Cystic mass with rubbery/solid foci. Contour: Round. DIRECT EXTENSION Focality: Unifocal MARGINS ? Parenchyma: 0.1 cm. Inking: Parenchymal margin inked black. Sections/Processi ng: Rabbler sections in 10 cassettes as follows: ?A1-A5: ??Tumor to closest margin ?A6: ??Tumor to fat ?A7-A8: ??Additional printing supplies sales representative tumor ?A9: ??Lesion to normal kidney ?A10: ??Normal kidney ??[facility] 07/04/2019 11:[address] [facility] SPECIMEN FROM KIDNEY / Unknown 06/28/2019 12:57 PM EST 06/28/2019 12:57 PM EST Avila Medina MD PATHOLOGY/CYTOLOGY O RDERABLES [facility] [place] [place] [address] * (ABNORMAL) BLOOD GAS 2 ARTERIAL (06/28/2019 11:13 AM EST) pH, Arterial 7.33(L) 7.35 - 7.45 [facility] PCO2, Arterial 51(H) 35 - [address] [facility] PO2, Arterial 198(H) 85 - [address] [facility] Bicarbonate, Arterial 26.8(H) 20.0 - 26.0 mmol/L [facility] Base Excess, Arterial 0.4 -3.0 - 3.0 mmol/L [facility] Hgb Blood Gas 13.4 11.7 - 15.5 gm/dL [facility] Oxyhemoglobin, Arterial 94.2 94.0 - 97.0 % [facility] Carboxyhemoglob in, Arterial 4.6 % [facility] Comment: Nonsmokers: 0.5-1.5% COHB Smokers: Variable, but usually less than 10% Toxic: 20-30% COHB Lethal: Greater than 60% COHB Methemoglobin, Arterial 0.3 <=1.5 % [facility] Na Whole Blood 140 135 - 145 mmol/L [facility] K Whole Blood 4.1 3.5 - 5.0 mmol/L [facility] Comment: Please note: Patients with WBC >100,000 may have falsely elevated Potassium levels. Contact the Clinical Chemistry Laboratory if there are any questions. ICa Whole Blood 1.18 1.15 - 1.33 mmol/L [facility] Comment: Note: ??Total bilirubin higher than 20 mg/dL may lead to falsely low ionized calcium. CL Whole Blood 108(H) 98 - 107 mmol/L [facility] Gluc Whole Bld 160 65 - 199 mg/dL [facility] Comment:Diabetes: >=200 mg/d L plus symptoms. Lactate WB 1.3 0.5 - 2.2 mmol/L [facility] FIO2 Art 56 % [facility] PF Ratio Art 354 [facility] Temp Art 35.3 Celsius [facility] Blood specimen (specimen) 06/28/2019 11:13 AM EST 06/28/2019 11:13 AM EST Avila Medina MD POINT OF CARE TEST O RDERABLES [facility] [place] [address] * POCT Glucose (06/28/2019 8:17 AM EST) Glucose, POC 146 65 - 199 mg/dL [facility] Comment: Supplemental ranges: <140 mg/dL before meals <180 mg/dL all other times of the day Blood specimen (specimen) 06/28/2019 8:17 AM EST 06/28/2019 8:17 AM EST Avila Medina MD POINT OF CARE TEST O ULISES [facility] [place] [address] documented in this encounter Visit Diagnoses Diagnosis Renal mass, left Unspecified disorder of kidney and ureter Renal mass Unspecified disorder of kidney and ureter documented in this encounter Admitting Diagnoses Diagnosis Renal mass, left Unspecified disorder of kidney and ureter documented in this encounter Administered Medications Inactive Administered Medications - up to 3 most recent administrations Medication Order MAR Action Action Date Dose Rate Site acetaminophen (Tylenol) tablet 1,000 mg 1,000 mg, Oral, ONCE, 1 dose, On Mon06/28/19 at 0815, Administer with SIP of H2O only., Day of Surgery (Day of Procedure), Routine Given 06/28/2019 8:15 AM EST 1,000 mg acetaminophen (Tylenol) tablet 1,000 mg 1,000 mg, Oral, EVERY 6 HOURS SCHEDULED, First dose on Mon06/28/19 at 1800, Until Discontinued, Do not exceed 4,000 mg in 24 hours, Routine Given 07/01/2019 12:37 PM EST 1,000 mg Given 07/01/2019 5:31 AM EST 1,000 mg Given 06/30/2019 11:40 PM EST 1,000 mg albuterol (PROVENTIL) nebulizer solution 2.5 mg 2.5 mg, Nebulization, EVERY 4 HOURS PRN, Starting on Mon06/28/19 at 1619, Until Mon07/01/19 at 1846, Wheezing, Shortness of Breath, Routine Given 06/29/2019 11:07 AM EST 2.5 mg Given 06/29/2019 6:38 AM EST 2.5 mg Given 06/28/2019 5:53 PM EST 2.5 mg albuterol 90 mcg/actuation inhaler 2 puff 2 puff, Inhalation, EVERY 4 HOURS PRN, Starting on 06/29/19 at 1728, Until 07/01/19 at 1846, Wheezing, Shortness of Breath, Routine, Is there a contraindication to the patient receiving this medication as a nebulizer? Yes Given 06/29/2019 6:13 PM EST 2 puffs amLODIPine (Norvasc) tablet 5 mg 5 mg, Oral, DAILY, First dose on 06/29/19 at 0900, Until Discontinued, Routine Given 07/01/2019 9:29 AM EST 5 mg Given 06/30/2019 8:09 AM EST 5 mg Given 06/29/2019 10:08 AM EST 5 mg aspirin EC tablet 81 mg 81 mg, Oral, DAILY, First dose on 06/29/19 at 0900, Until Discontinued, Routine Given 07/01/2019 9:23 AM EST 81 mg Given 06/30/2019 8:09 AM EST 81 mg Given 06/29/2019 10:09 AM EST 81 mg budesonide-formoterol (SYMBICORT) 80-4.5 mcg/actuation inhaler 2 Inhalation 2 .Inhalation , Inhalation, EVERY 12 HOURS SCHEDULED (2 times per day), First dose on 06/29/19 at 2100, Until Discontinued, Routine Given 07/01/2019 9:33 AM EST 2 .Inhalation Given 06/30/2019 8:21 PM EST 2 .Inhalation Given 06/30/2019 8:10 AM EST 2 .Inhalation cyclobenzaprine (Flexeril) tablet 5 mg 5 mg, Oral, 3 TIMES DAILY PRN, Starting on Mon06/30/19 at 0919, Until 07/01/19 at 1846, Muscle spasms, Routine Given 07/01/2019 2:31 PM EST 5 mg Given 07/01/2019 2:43 AM EST 5 mg Given 06/30/2019 7:38 PM EST 5 mg dextrose 10% infusion 250 mL, at 1,000 mL/hr, Intravenous, EVERY 30 MIN PRN, Starting on Mon06/28/19 at 1500, Until Mon07/01/19 at 1846, For BG 50-70 mg/dL: Oral treatment preferred:?? If able to drink, give 120 mL Juice or Regular (not diet) soda OR If NPO, give 15 gram glucose 40% oral gel massaged into buccal mucosa OR if unconscious or uncooperative, give 25 gram (250 mL) Dextrose 10% IV over 15 minutes per protocol OR, if no IV access, 1 mg Glucagon IM. For BG less than 50 mg/dL: Oral treatment preferred:?? If able to drink, give 240 mL Juice or Regular (not diet) soda OR If NPO, give 30 gram glucose 40% oral gel massaged in buccal mucosa OR if unconscious or uncooperative, give 25 gram (250 mL) Dextrose 10% IV over 15 minutes per protocol OR, if no IV access, 1 mg Glucagon IM. Recheck BG in 30 minutes. May repeat juice/soda, gel, dextrose or glucagon once per episode. For persistent hypoglycemia, consider longer-acting treatment for the duration of the active insulin. docusate sodium (Colace) capsule 100 mg 100 mg, Oral, 2 TIMES DAILY, First dose on Mon06/28/19 at 2100, Until Discontinued, Routine Given 07/01/2019 9:22 AM EST 100 mg Given 06/30/2019 8:12 PM EST 100 mg Given 06/30/2019 8:09 AM EST 100 mg fluticasone propionate (FLONASE) 50 mcg/actuation nasal spray 1 spray 1 spray, Each Nare, 2 TIMES DAILY PRN, Starting on 06/29/19 at 1700, Until 07/01/19 at 1846, Rhinitis, Allergies, Routine Given 06/30/2019 9:48 AM EST 1 spray Given 06/29/2019 6:13 PM EST 1 spray gabapentin (Neurontin) capsule 300 mg 300 mg, Oral, ONCE, 1 dose, On Mon06/28/19 at 0815, Administer with SIP of H2O only., Day of Surgery (Day of Procedure), Routine Given 06/28/2019 8:15 AM EST 300 mg glucagon (human recombinant) injection SolR 1 mg 1 mg, Intramuscular, EVERY 30 MIN PRN, Starting on Mon06/28/19 at 1500, Until 07/01/19 at 1846, Low blood sugar, For BG 50-70 mg/dL: Oral treatment preferred:?? If able to drink, give 120 mL Juice or Regular (not diet) soda OR If NPO, give 15 gram glucose 40% oral gel massaged into buccal mucosa OR if unconscious or uncooperative, give 25 gram (250 mL) Dextrose 10% IV over 15 minutes per protocol OR, if no IV access, 1 mg Glucagon IM. For BG less than 50 mg/dL: Oral treatment preferred:?? If able to drink, give 240 mL Juice or Regular (not diet) soda OR If NPO, give 30 gram glucose 40% oral gel massaged in buccal mucosa OR if unconscious or uncooperative, give 25 gram (250 mL) Dextrose 10% IV over 15 minutes per protocol OR, if no IV access, 1 mg Glucagon IM. Recheck BG in 30 minutes. May repeat juice/soda, gel, dextrose or glucagon once per episode. For persistent hypoglycemia, consider longer-acting treatment for the duration of the active insulin., Routine glucose (GLUTOSE) 40% oral gel 15-30 g, Buccal, EVERY 30 MIN PRN, Starting on Mon06/28/19 at 1500, Until Mon07/01/19 at 1846, Low blood sugar, For BG 50-70 mg/dL: Oral treatment preferred:?? If able to drink, give 120 mL Juice or Regular (not diet) soda OR If NPO, give 15 gram glucose 40% oral gel massaged into buccal mucosa OR if unconscious or uncooperative, give 25 gram (250 mL) Dextrose 10% IV over 15 minutes per protocol OR, if no IV access, 1 mg Glucagon IM. For BG less than 50 mg/dL: Oral treatment preferred:?? If able to drink, give 240 mL Juice or Regular (not diet) soda OR If NPO, give 30 gram glucose 40% oral gel massaged in buccal mucosa OR if unconscious or uncooperative, give 25 gram (250 mL) Dextrose 10% IV over 15 minutes per protocol OR, if no IV access, 1 mg Glucagon IM. Recheck BG in 30 minutes. May repeat juice/soda, gel, dextrose or glucagon once per episode. For persistent hypoglycemia, consider longer-acting treatment for the duration of the active insulin. 1 tube contains 15 grams of glucose (net weight of tube = 37.5 grams., Routine heparin (Porcine) subcutaneous injection 5,000 Units 5,000 Units, Subcutaneous, EVERY 8 HOURS SCHEDULED, First dose on Mon06/28/19 at 1645, Until Discontinued, Routine Given 06/29/2019 10:07 AM EST 5,000 Units Given 06/29/2019 2:37 AM EST 5,000 Units Given 06/28/2019 4:45 PM EST 5,000 Units heparin (Porcine) subcutaneous injection 5,000 Units 5,000 Units, Subcutaneous, EVERY 8 HOURS SCHEDULED, First dose (after last reorder) on Mon06/29/19 at 2200, Until Discontinued, Routine Given 07/01/2019 2:29 PM EST 5,000 Units Given 07/01/2019 5:32 AM EST 5,000 Units Given 06/30/2019 9:10 PM EST 5,000 Units HYDROmorphone (DILAUDID) injection 0.2 mg 0.2 mg, Intravenous, EVERY 2 HOURS PRN, Starting on Mon06/28/19 at 1619, Until 07/01/19 at 0849, Pain, for SEVERE pain (7-10), May repeat once in 30 minutes if pain not relieved., Routine Given 06/29/2019 6:18 PM EST 0.2 mg Given 06/28/2019 4:49 PM EST 0.2 mg HYDROmorphone (DILAUDID) injection 0.2-0.4 mg 0.2-0.4 mg, Intravenous, EVERY 5 MIN PRN, Starting on Mon06/28/19 at 1408, Until Mon06/28/19 at 1604, Pain, Give 0.2 mg every 5 minutes PRN for mild to moderate pain (1-5) Give 0.4 mg every 5 minutes PRN for moderate to severe pain (6-10). Hold for respiratory rate less than 10 per minute. Maximum dose 4 mg over one hour. If multiple pain medications are ordered, start with hydromorphone or morphine and use fentanyl for breakthrough pain., PACU Recovery, Routine Given 06/28/2019 2:31 PM EST 0.4 mg Given 06/28/2019 2:12 PM EST 0.4 mg HYDROmorphone (Dilaudid) tablet 4 mg 4 mg, Oral, EVERY 4 HOURS PRN, Starting on Mon06/28/19 at 1500, Until Mon07/01/19 at 0849, Pain, for moderate pain (4-6), May give an additional 2 mg once if pain not relieved in 30-60 minutes., Routine Given 07/01/2019 12:02 AM EST 4 mg Given 06/30/2019 4:41 PM EST 4 mg Given 06/30/2019 12:40 PM EST 4 mg insulin lispro (HumaLOG) VIAL injection 0-6 Units 0-6 Units, Subcutaneous, 3 TIMES DAILY WITH MEALS, First dose on Mon06/28/19 at 1700, Until Discontinued, MEAL ASSOCIATED If 50% or less of the meal is eaten, give 3 units immediately following the meal. If more than 50% of the meal is eaten, give 6 units immediately following the meal. Hold if not eating or if BG less than 70, Routine Given 07/01/2019 12:38 PM EST 6 Units Given 07/01/2019 9:25 AM EST 6 Units Given 06/30/2019 4:10 PM EST 6 Units insulin lispro (HumaLOG) VIAL injection 1-5 Units 1-5 Units, Subcutaneous, 3 TIMES DAILY BEFORE MEALS, First dose on Mon06/28/19 at 1630, Until Discontinued, CORRECTION BOLUS [1-4 Units] Sensitive Sliding Scale: Correction factor 40 (1 unit of insulin is expected to drop the glucose 40 mg/dL) BG 160 - 200 Give 1 unit BG 201 - 240 Give 2 units BG 241 - 280 Give 3 units BG greater than 280, give 4 units and recheck BG in 2 hours. - If recheck BG is LESS than 280, give no insulin and resume schedule - If recheck BG is GREATER than 280, give 4 units and repeat BG in 2 hours (no more than 3 times) & call for new insulin orders. DO NOT hold if NPO, unless specifically told to do so. Per Blood Glucose Monitoring Policy, re-check a BG of > 240 in 2 hours., Routine Given 06/29/2019 3:39 PM EST 1 Units lactated ringers infusion 1,000 mL, at 100 mL/hr, Intravenous, CONTINUOUS, Starting on Mon06/28/19 at 0815, Until Mon06/28/19 at 1604, Day of Surgery (Day of Procedure) New Bag 06/28/2019 10:20 AM EST New Bag 06/28/2019 8:34 AM EST New Bag 06/28/2019 8:08 AM EST 1,000 mLs 100 mL/hr lactated ringers infusion 1,000 mL, at 100 mL/hr, Intravenous, CONTINUOUS, Starting on Mon06/28/19 at 1430, Until Mon06/28/19 at 1604, PACU Recovery New Bag 06/28/2019 3:45 PM EST 1,000 mLs 100 mL/hr lamoTRIgine (LaMICtal) tablet 75 mg 75 mg, Oral, DAILY, First dose on 06/29/19 at 0900, Until Discontinued, Routine Given 07/01/2019 9:22 AM EST 75 mg Given 06/30/2019 8:10 AM EST 75 mg Given 06/29/2019 10:09 AM EST 75 mg lidocaine (LIDODERM) 5 % patch 3 patch 3 patch, Transdermal, EVERY 24 HOURS, First dose on 06/29/19 at 1030, Until Discontinued, Apply patch(es) for 12 hours, and then remove for 12 hours, Routine Patch Applied 07/01/2019 10:20 AM EST 3 patches 20-Other (document i n comment section) Patch Applied 06/30/2019 9:47 AM EST 3 patches 13- Abdomen (Left) Patch Applied 06/29/2019 11:02 AM EST 3 patches 08- Back Lower (Right) lidocaine (LIDODERM) 5 %(700 mg/patch) Patch Removal Transdermal, EVERY 24 HOURS, First dose on 06/29/19 at 2145, Until Discontinued, Remove lidocaine 5 %(700 mg/patch) patch loratadine (Claritin) tablet 10 mg 10 mg, Oral, DAILY, First dose on 06/29/19 at 0900, Until Discontinued, Routine Given 07/01/2019 9:22 AM EST 10 mg Given 06/30/2019 8:09 AM EST 10 mg Given 06/29/2019 10:10 AM EST 10 mg losartan (Cozaar) tablet 100 mg 100 mg, Oral, DAILY, First dose on 06/29/19 at 0900, Until Discontinued, Routine Given 07/01/2019 9:2 2 AM EST 100 mg Given 06/30/2019 8:09 AM EST 100 mg Given 06/29/2019 10:12 AM EST 100 mg methyl salicylate-menthol (BENGAY) 15-10 % cream 1 each 1 each, Topical (Top), 2 TIMES DAILY, First dose on 06/29/19 at 2300, Until Discontinued Given 07/01/2019 9:29 AM EST 1 each Given 06/30/2019 8:14 PM EST 1 each Given 06/30/2019 8:11 AM EST 1 each metoprolol tartrate (Lopressor) tablet 12.5 mg 12.5 mg, Oral, EVERY 12 HOURS SCHEDULED (2 times per day), First dose (after last reorder) on 06/29/19 at 0900, Until Discontinued, Routine Given 07/01/2019 9:20 AM EST 12.5 mg Given 06/30/2019 8:12 PM EST 12.5 mg Given 06/30/2019 8:06 AM EST 12.5 mg nicotine (NICODERM CQ) 21 mg/24 hr patch 21 mg 21 mg (1 patch), Transdermal, DAILY, First dose on Mon06/28/19 at 1845, Until Discontinued, Routine Patch Applied 07/01/2019 10:19 AM EST 21 mg 04- Shoulder (Right) Patch Applied 06/30/2019 8:10 AM EST 21 mg 10- Arm Upper (Right) Patch Applied 06/28/2019 7:54 PM EST 21 mg 09- Arm Upper (Left) nicotine (NICODERM CQ) 21 mg/24 hr patch Patch Removal Transdermal, DAILY, First dose on 06/29/19 at 0900, Until Discontinued, Remove nicotine 21 mg/24 hr patch nicotine (NICODERM CQ) 21 mg/24 hr patch Patch Verification Transdermal, 2 TIMES DAILY, First dose on 06/29/19 at 0630, Until Discontinued, Verify nicotine 21 mg/24 hr patch ondansetron (ZOFRAN) injection 4 mg 4 mg, Intravenous, EVERY 8 HOURS PRN, Starting on Mon06/28/19 at 1619, Until 07/01/19 at 1846, Nausea, May repeat times one in 30 minutes if ineffective. If multiple antiemetics are ordered, use ondansetron first, Recovery (Recovery-Hospital Unit) Given 06/29/2019 10:57 AM EST 4 mg Given 06/28/2019 4:49 PM EST 4 mg ondansetron (Zofran) tablet 4 mg 4 mg, Oral, EVERY 8 HOURS PRN, Starting on Mon06/28/19 at 1619, Until 07/01/19 at 1846, Nausea, Vomiting, If multiple antiemetics are ordered, use ondansetron first. PO Preferred. If patient unable to take PO, may give IV if ordered. May repeat times one in 45 minutes if ineffective., Recovery (Recovery-Hospital Unit), Routine Given 06/30/2019 12:40 PM EST 4 mg Given 06/29/2019 9:45 PM EST 4 mg pantoprazole EC (Protonix) tablet 20 mg 20 mg, Oral, DAILY, First dose on 06/29/19 at 0900, Until Discontinued Given 07/01/2019 9:23 AM EST 20 mg Given 06/30/2019 8:09 AM EST 20 mg Given 06/29/2019 10:12 AM EST 20 mg polyethylene glycol (Miralax) packet 17 g 17 g, Oral, DAILY PRN, Starting on Mon06/28/19 at 1619, Until Mon07/01/19 at 1846, Constipation, Administer if no bowel movement within 48 hours to achieve: (1) One bowel movement at least every 48 hours, AND (2) without straining. If multiple PRN bowel medications ordered, start with polyethylene glycol, then lactulose, then oral bisacodyl, then bisacodyl suppository, then magnesium citrate, then tap water enema. Multiple medications may be given concomitantly for constipation., Routine Given 07/01/2019 5:31 AM EST 17 g prochlorperazine (COMPAZINE) injection 10 mg 10 mg, Intravenous, EVERY 6 HOURS PRN, Starting on Mon06/28/19 at 1619, Until 07/01/19 at 1846, Nausea, Vomiting, If multiple antiemetics are ordered, use ondansetron first. If ondansetron ineffective use prochlorperazine. , Recovery (Recovery-Hospital Unit), Routine prochlorperazine (COMPAZINE) injection 5 mg 5 mg, Intravenous, EVERY 30 MIN PRN, 2 doses, Starting on Mon06/28/19 at 1408, Until Mon06/28/19 at 1604, Nausea, May repeat 5 mg once in 30 minutes. If multiple antiemetics ordered, use ondansetron first and if ineffective use prochlorperazine second and if ineffective use promethazine, PACU Recovery, Routine Given 06/28/2019 2:18 PM EST 5 mg prochlorperazine (Compazine) tablet 10 mg 10 mg, Oral, EVERY 6 HOURS PRN, Starting on Mon06/28/19 at 1619, Until 07/01/19 at 1846, Nausea, Vomiting, If multiple antiemetics are ordered, use ondansetron first. If ondansetron ineffective use prochlorperazine. PO Preferred. If patient unable to take PO, may give IV if ordered., Recovery (Recovery-Hospital Unit), Routine simvastatin (Zocor) tablet 10 mg 10 mg, Oral, DAILY, First dose on Mon06/28/19 at 1645, Until Discontinued Given 06/30/2019 4:31 PM EST 10 mg Given 06/29/2019 6:17 PM EST 10 mg sodium chloride 0.9 % (flush) flush 5 mL 5 mL, Intravenous, 2 TIMES DAILY, First dose on Mon06/28/19 at 2100, Until Discontinued, Recovery (Recovery-Hospital Unit), Routine Given 07/01/2019 9:30 AM EST 5 0 mLs Given 06/30/2019 8:12 PM EST 5 mLs Given 06/30/2019 8:11 AM EST 5 mLs sodium chloride 0.9% infusion 100 mL/hr, Intravenous, CONTINUOUS, Starting on Mon06/28/19 at 1530, Until 06/29/19 at 0845 New Bag 06/29/2019 2:42 AM EST 100 mL/hr 100 mL/hr New Bag 06/28/2019 3:47 PM EST 100 mL/hr 100 mL/hr traZODone (Desyrel) tablet 100 mg 100 mg, Oral, NIGHTLY, First dose on Mon06/28/19 at 2100, Until Discontinued, Routine Given 06/30/2019 8:1 2 PM EST 100 mg Given 06/29/2019 9:39 PM EST 100 mg documented in this encounter Active and Recently Administered Medications Times are shown in EST. Scheduled Medication Order 06/29/2019 06/30/2019 07/01/2019 acetaminophen (Tylenol) tablet 1,000 mg 1,000 mg, Oral, EVERY 6 HOURS SCHEDULED, First dose on Mon06/28/19 at 1800, Until Discontinued, Do not exceed 4,000 mg in 24 hours, Routine 0008 (Given - Provider: Alize Bernard RN)0627 (Given - Provider: Alize Bernard RN)1400 (Given - Provider: Christine Wu RN)1817 (Given - Provider: Carlota Rocha RN)2331 (Given - Provider: Nelson Tomlinson RN) 0600 (Given - Provider: Nelson Tomlinson RN)1239 (Given - Provider: Allison Sánchez RN)1740 (Given - Provider: Allison Sánchez RN)2340 (Given - Provider: Nelson Tomlinson RN) 0531 (Given - Provider: Nelson Tomlinson RN)1237 (Given - Provider: Yue Moore RN) amLODIPine (Norvasc) tablet 5 mg 5 mg, Oral, DAILY, First dose on 06/29/19 at 0900, Until Discontinued, Routine 1008 (Given - Provider: Christine Wu RN) 08 (Given - Provider: Allison Sánchez RN) 09 (Given - Provider: Yue Moore RN) aspirin EC tablet 81 mg 81 mg, Oral, DAILY, First dose on 06/29/19 at 0900, Until Discontinued, Routine 1009 (Given - Provider: Christine Wu RN) 08 (Given - Provider: Allison Sánchez RN) 09 (Given - Provider: Yue Moore RN) budesonide-formoterol (SYMBICORT) 80-4.5 mcg/actuation inhaler 2 Inhalation 2 .Inhalation , Inhalation, EVERY 12 HOURS SCHEDULED (2 times per day), First dose on Mon06/29/19 at 2100, Until Discontinued, Routine 2138 (Given - Provider: Nelson Tomlinson RN) 08 (Given - Provider: Allison Sánchez RN)2020 (Given - Provider: Nelson Tomlinson RN) 0933 (Given - Provider: Yue Moore RN) docusate sodium (Colace) capsule 100 mg 100 mg, Oral, 2 TIMES DAILY, First dose on Mon06/28/19 at 2100, Until Discontinued, Routine 1009 (Given - Provider: Christine Wu RN)213 (Given - Provider: Nelson Tomlinson RN) 08 (Given - Provider: Allison Sánchez RN)2011 (Given - Provider: Nelson Tomlinson RN) 09 (Given - Provider: Yue Moore RN) heparin (Porcine) subcutaneous injection 5,000 Units (CANCELED) 5,000 Units, Subcutaneous, EVERY 8 HOURS SCHEDULED, First dose on Mon06/28/19 at 1645, Until Discontinued, Routine 0237 (Given - Provider: Alize Bernard RN)1007 (Given - Provider: Christine Wu RN) heparin (Porcine) subcutaneous injection 5,000 Units 5,000 Units, Subcutaneous, EVERY 8 HOURS SCHEDULED, First dose (after last reorder) on Mon06/29/19 at 2200, Until Discontinued, Routine 2139 (Given - Provider: Nelson Tomlinson, VEDA) 0533 (Given - Provider: Nelson Tomlinson, VEDA)1344 (Given - Provider: Allison Sánchez RN)2110 (Given - Provider: Nelson Tomlinson, RN) 0532 (Given - Provider: Nelson Tomlinson, VEDA)1429 (Given - Provider: Yue Moore, VEDA) insulin lispro (HumaLOG) VIAL injection 0-6 Units 0-6 Units, Subcutaneous, 3 TIMES DAILY WITH MEALS, First dose on Mon06/28/19 at 1700, Until Discontinued, [employer] If 50% or less of the meal is eaten, give 3 units immediately following the meal. If more than 50% of the meal is eaten, give 6 units immediately following the meal. Hold if not eating or if BG less than 70, Routine 0800 (Not Given - Provider: Christine Wu RN - Reason: Order parameters not met - Comment: Pt not able to eat d/t nausea)1359 (Given - Provider: Christine Wu, VEDA)1930 (Given - Provider: Allison Sánchez RN - Comment: -pt's dinner tray arrived late, pt just finished eating) 0819 (Given - Provider: Allison Sánchez RN)1240 (Given - Provider: Allison Sánchez, VEDA)1610 (Given - Provider: Allison Sánchez RN) 0925 (Given - Provider: Yue Moore, VEDA)1238 (Given - Provider: Yue Moore, RN) insulin lispro (HumaLOG) VIAL injection 1-5 Units(Linked Group 1) 1-5 Units, Subcutaneous, 3 TIMES DAILY BEFORE MEALS, First dose on Mon06/28/19 at 1630, Until Discontinued, CORRECTION BOLUS [1-4 Units] Sensitive Sliding Scale: Correction factor 40 (1 unit of insulin is expected to drop the glucose 40 mg/dL) BG 160 - 200 Give 1 unit BG 201 - 240 Give 2 units BG 241 - 280 Give 3 units BG greater than 280, give 4 units and recheck BG in 2 hours. - If recheck BG is LESS than 280, give no insulin and resume schedule - If recheck BG is GREATER than 280, give 4 units and repeat BG in 2 hours (no more than 3 times) & call for new insulin orders. DO NOT hold if NPO, unless specifically told to do so. Per Blood Glucose Monitoring Policy, re-check a BG of > 240 in 2 hours., Routine 0730 (Not Given - Provider: Alize Bernard RN - Reason: Order parameters not met)1130 (Not Given - Provider: Christine Wu RN - Reason: Order parameters not met)1539 (Given - Provider: Allison Sánchez RN) 0757 (Not Given - Provider: Allison Sánchez RN - Reason: Order parameters not met)1156 (Not Given - Provider: Allison Sánchez RN - Reason: Order parameters not met)1602 (Not Given - Provider: Allison Sánchez RN - Reason: Order parameters not met) 0730 (Not Given - Provider: Hannah Parra RN - Reason: Order parameters not met)1242 (Not Given - Provider: Yue Moore RN - Reason: Order parameters not met)1630 (Due) lamoTRIgine (LaMICtal) tablet 75 mg 75 mg, Oral, DAILY, First dose on 06/29/19 at 0900, Until Discontinued, Routine 1009 (Given - Provider: Christine Wu RN) 0810 (Given - Provider: Allison Sánchez RN) 0922 (Given - Provider: Yue Moore RN) lidocaine (LIDODERM) 5 % patch 3 patch(Linked Group 2) 3 patch, Transdermal, EVERY 24 HOURS, First dose on 06/29/19 at 1030, Until Discontinued, Apply patch(es) for 12 hours, and then remove for 12 hours, Routine 1102 (Patch Applied - Provider: Christine Wu RN) 0947 (Patch Applied - Provider: Allison Sánchez RN) 1020 (Patch Applied - Provider: Yue Moore RN - Comment: R and L neck. L ABD) lidocaine (LIDODERM) 5 %(700 mg/patch) Patch Removal(Linked Group 2) Transdermal, EVERY 24 HOURS, First dose on 06/29/19 at 2145, Until Discontinued, Remove lidocaine 5 %(700 mg/patch) patch 2144 (Patch Removed - Provider: Nelson Tomlinson RN) 2144 (Patch Removed - Provider: Nelson Tomlinson RN) loratadine (Claritin) tablet 10 mg 10 mg, Oral, DAILY, First dose on 06/29/19 at 0900, Until Discontinued, Routine 1010 (Given - Provider: Christine Wu RN) 0809 (Given - Provider: Allison Sánchez RN) 0922 (Given - Provider: Yue Moore, VEDA) losartan (Cozaar) tablet 100 mg 100 mg, Oral, DAILY, First dose on 06/29/19 at 0900, Until Discontinued, Routine 1012 (Given - Provider: Christine Wu RN) 0809 (Given - Provider: Allison Sánchez RN) 0922 (Given - Provider: Yue Moore RN) methyl salicylate-menthol (BENGAY) 15-10 % cream 1 each 1 each, Topical (Top), 2 TIMES DAILY, First dose on 06/29/19 at 2300, Until Discontinued 2332 (Given - Provider: Nelson Tomlinson RN - Comment: L/R neck & shoulders) 0811 (Given - Provider: Allison Sánchez RN)2013 (Given - Provider: Nelson Tomlinson RN) 09 (Given - Provider: Yue Moore, VEDA) metoprolol tartrate (Lopressor) tablet 12.5 mg 12.5 mg, Oral, EVERY 12 HOURS SCHEDULED (2 times per day), First dose (after last reorder) on 06/29/19 at 0900, Until Discontinued, Routine 1408 (Given - Provider: Christine Wu RN - Comment: Pt states this should be 25 Mg, MD confirmed 12.5 mg dose BID)2137 (Given - Provider: Nelson Tomlinson RN) 08 (Given - Provider: Allison Sánchez, VEDA)2011 (Given - Provider: Nelson Tomlinson RN) 09 (Given - Provider: Yue Moore RN) nicotine (NICODERM CQ) 21 mg/24 hr patch 21 mg(Linked Group 3) 21 mg (1 patch), Transdermal, DAILY, First dose on Mon06/28/19 at 1845, Until Discontinued, Routine 0900 (Hold - Provider: Christine Wu RN - Reason: Patient/family refused) 0810 (Patch Applied - Provider: Allison Sánchez RN) 101 (Patch Applied - Provider: Yue Moore RN) nicotine (NICODERM CQ) 21 mg/24 hr patch Patch Removal(Linked Group 3) Transdermal, DAILY, First dose on Mon06/29/19 at 0900, Until Discontinued, Remove nicotine 21 mg/24 hr patch 0900 (Hold - Provider: Christine Wu RN - Reason: See comment - Comment: Patch on Left shoulder, remove @ 06/29) 1999 (Patch Removed - Provider: Nelson Tomlinson RN) nicotine (NICODERM CQ) 21 mg/24 hr patch Patch Verification(Linked Group 3) Transdermal, 2 TIMES DAILY, First dose on Mon06/29/19 at 0630, Until Discontinued, Verify nicotine 21 mg/24 hr patch 0630 (Patch (dose and location) verified - Provider: Alize Bernard RN)2100 (Patch (dose and location) verified - Provider: Nelson Tomlinson RN) 0900 (Patch (dose and location) verified - Provider: Allison Sánchez RN)2100 (Patch (dose and location) verified - Provider: Nelson Tomlinson RN) 1026 (Patch (dose and location) verified - Provider: Yue Moore RN) pantoprazole EC (Protonix) tablet 20 mg 20 mg, Oral, DAILY, First dose on Mon06/29/19 at 0900, Until Discontinued 1012 (Given - Provider: Christine Wu RN) 0809 (Given - Provider: Allison Sánchez RN) 0923 (Given - Provider: Yue Moore RN) simvastatin (Zocor) tablet 10 mg 10 mg, Oral, DAILY, First dose on Mon06/28/19 at 1645, Until Discontinued 1817 (Given - Provider: Carlota Rocha, VEDA) 1631 (Given - Provider: Allison Sánchez, VEDA) sodium chloride 0.9 % (flush) flush 5 mL 5 mL, Intravenous, 2 TIMES DAILY, First dose on Mon06/28/19 at 2100, Until Discontinued, Recovery (Recovery-Hospital Unit), Routine 1013 (Given - Provider: Christine Wu, VEDA)2139 (Given - Provider: Nelson Tomlinson, VEDA) 0811 (Given - Provider: Allison Sánchez, VEDA)2011 (Given - Provider: Nelson Tomlinson RN) 0930 (Given - Provider: Yue Moore RN) traZODone (Desyrel) tablet 100 mg 100 mg, Oral, NIGHTLY, First dose on Mon06/28/19 at 2100, Until Discontinued, Routine 2138 (Given - Provider: Nelson Tomlinson RN) 2011 (Given - Provider: Nelson Tomlinson RN) Continuous Medication Order 06/29/2019 06/30/2019 07/01/2019 sodium chloride 0.9% infusion (CANCELED) 100 mL/hr, Intravenous, CONTINUOUS, Starting on Mon06/28/19 at 1530, Until 06/29/19 at 0845 0242 (New Bag - Provider: Alize Bernard, VEDA)0800 (Stopped - Provider: Christine Wu, VEDA) PRN Medication Order 06/29/2019 06/30/2019 07/01/2019 albuterol (PROVENTIL) nebulizer solution 2.5 mg 2.5 mg, Nebulization, EVERY 4 HOURS PRN, Starting on Mon06/28/19 at 1619, Until 07/01/19 at 1846, Wheezing, Shortness of Breath, Routine 0638 (Given - Provider: Alize Bernard RN)1107 (Given - Provider: Christine Wu, VEDA) albuterol 90 mcg/actuation inhaler 2 puff 2 puff, Inhalation, EVERY 4 HOURS PRN, Starting on 06/29/19 at 1728, Until Mon07/01/19 at 1846, Wheezing, Shortness of Breath, Routine, Is there a contraindication to the patient receiving this medication as a nebulizer? Yes 1812 (Given - Provider: Carlota Rocha, VEDA) cyclobenzaprine (Flexeril) tablet 5 mg 5 mg, Oral, 3 TIMES DAILY PRN, Starting on 06/30/19 at 0919, Until Mon07/01/19 at 1846, Muscle spasms, Routine 0947 (Given - Provider: Allison Sánchez RN)1938 (Given - Provider: Nelson Tomlinson RN - Comment: R&L neck & shoulder pain.) 0243 (Given - Provider: Nelson Tomlinson RN - Comment: R neck/shoulder pain.)1431 (Given - Provider: Yue Moore RN) dextrose 10% infusion(Linked Group 4) 250 mL, at 1,000 mL/hr, Intravenous, EVERY 30 MIN PRN, Starting on Mon06/28/19 at 1500, Until Mon07/01/19 at 1846, For BG 50-70 mg/dL: Oral treatment preferred:?? If able to drink, give 120 mL Juice or Regular (not diet) soda OR If NPO, give 15 gram glucose 40% oral gel massaged into buccal mucosa OR if unconscious or uncooperative, give 25 gram (250 mL) Dextrose 10% IV over 15 minutes per protocol OR, if no IV access, 1 mg Glucagon IM. For BG less than 50 mg/dL: Oral treatment preferred:?? If able to drink, give 240 mL Juice or Regular (not diet) soda OR If NPO, give 30 gram glucose 40% oral gel massaged in buccal mucosa OR if unconscious or uncooperative, give 25 gram (250 mL) Dextrose 10% IV over 15 minutes per protocol OR, if no IV access, 1 mg Glucagon IM. Recheck BG in 30 minutes. May repeat juice/soda, gel, dextrose or glucagon once per episode. For persistent hypoglycemia, consider longer-acting treatment for the duration of the active insulin. fluticasone propionate (FLONASE) 50 mcg/actuation nasal spray 1 spray 1 spray, Each Nare, 2 TIMES DAILY PRN, Starting on 06/29/19 at 1700, Until Mon07/01/19 at 1846, Rhinitis, Allergies, Routine 1813 (Given - Provider: Carlota Rocha, RN) 0948 (Given - Provider: Allison Sánchez, VEDA) glucagon (human recombinant) injection SolR 1 mg(Linked Group 4) 1 mg, Intramuscular, EVERY 30 MIN PRN, Starting on Mon06/28/19 at 1500, Until Mon07/01/19 at 1846, Low blood sugar, For BG 50-70 mg/dL: Oral treatment preferred:?? If able to drink, give 120 mL Juice or Regular (not diet) soda OR If NPO, give 15 gram glucose 40% oral gel massaged into buccal mucosa OR if unconscious or uncooperative, give 25 gram (250 mL) Dextrose 10% IV over 15 minutes per protocol OR, if no IV access, 1 mg Glucagon IM. For BG less than 50 mg/dL: Oral treatment preferred:?? If able to drink, give 240 mL Juice or Regular (not diet) soda OR If NPO, give 30 gram glucose 40% oral gel massaged in buccal mucosa OR if unconscious or uncooperative, give 25 gram (250 mL) Dextrose 10% IV over 15 minutes per protocol OR, if no IV access, 1 mg Glucagon IM. Recheck BG in 30 minutes. May repeat juice/soda, gel, dextrose or glucagon once per episode. For persistent hypoglycemia, consider longer-acting treatment for the duration of the active insulin., Routine glucose (GLUTOSE) 40% oral gel(Linked Group 4) 15-30 g, Buccal, EVERY 30 MIN PRN, Starting on Mon06/28/19 at 1500, Until Mon07/01/19 at 1846, Low blood sugar, For BG 50-70 mg/dL: Oral treatment preferred:?? If able to drink, give 120 mL Juice or Regular (not diet) soda OR If NPO, give 15 gram glucose 40% oral gel massaged into buccal mucosa OR if unconscious or uncooperative, give 25 gram (250 mL) Dextrose 10% IV over 15 minutes per protocol OR, if no IV access, 1 mg Glucagon IM. For BG less than 50 mg/dL: Oral treatment preferred:?? If able to drink, give 240 mL Juice or Regular (not diet) soda OR If NPO, give 30 gram glucose 40% oral gel massaged in buccal mucosa OR if unconscious or uncooperative, give 25 gram (250 mL) Dextrose 10% IV over 15 minutes per protocol OR, if no IV access, 1 mg Glucagon IM. Recheck BG in 30 minutes. May repeat juice/soda, gel, dextrose or glucagon once per episode. For persistent hypoglycemia, consider longer-acting treatment for the duration of the active insulin. 1 tube contains 15 grams of glucose (net weight of tube = 37.5 grams., Routine HYDROmorphone (DILAUDID) injection 0.2 mg (CANCELED) 0.2 mg, Intravenous, EVERY 2 HOURS PRN, Starting on Mon06/28/19 at 1619, Until Mon07/01/19 at 0849, Pain, for SEVERE pain (7-10), May repeat once in 30 minutes if pain not relieved., Routine 1817 (Given - Provider: Carlota Rocha RN) HYDROmorphone (Dilaudid) tablet 4 mg (CANCELED)(Linked Group 5) 4 mg, Oral, EVERY 4 HOURS PRN, Starting on Mon06/28/19 at 1500, Until Mon07/01/19 at 0849, Pain, for moderate pain (4-6), May give an additional 2 mg once if pain not relieved in 30-60 minutes., Routine 0331 (Given - Provider: Alize Bernard RN)0704 (Given - Provider: Alize Bernard RN)1103 (Given - Provider: Christine Wu, VEDA)1512 (Given - Provider: Christine Wu, VEDA)2146 (Given - Provider: Nelson Tomlinson, VEDA) 0809 (Given - Provider: Allison Sánchez RN)1240 (Given - Provider: Allison Sánchez, VEDA)1641 (Given - Provider: Allison Sánchez, VEDA) 0002 (Given - Provider: Nelson Tomlinson, VEDA) lidocaine (XYLOCAINE) 10 mg/mL (1 %) injection 3 mg 3 mg (0.3 mL), Subcutaneous, ONCE PRN, 1 dose, Starting on Mon06/28/19 at 1619, Until Mon07/01/19 at 1846, for discomfort with PIV insertion, Recovery (Recovery-Hospital Unit), Routine ondansetron (ZOFRAN) injection 4 mg(Linked Group 6) 4 mg, Intravenous, EVERY 8 HOURS PRN, Starting on Mon06/28/19 at 1619, Until Mon07/01/19 at 1846, Nausea, May repeat times one in 30 minutes if ineffective. If multiple antiemetics are ordered, use ondansetron first, Recovery (Recovery[facility]Hospital Unit) 1057 (Given - Provider: Christine Wu, VEDA)2144 (See Alternative - Provider: Nelson Tomlinson, VEDA) 1240 (See Alternative - Provider: Allison Sánchez, VEDA) ondansetron (Zofran) tablet 4 mg(Linked Group 6) 4 mg, Oral, EVERY 8 HOURS PRN, Starting on Mon06/28/19 at 1619, Until Mon07/01/19 at 1846, Nausea, Vomiting, If multiple antiemetics are ordered, use ondansetron first. PO Preferred. If patient unable to take PO, may give IV if ordered. May repeat times one in 45 minutes if ineffective., Recovery (Recovery-[facility]ospital Unit), Routine 1057 (See Alternative - Provider: Christine Wu, VEDA)5 (Given - Provider: Nelson Tomlinson, VEDA) 1240 (Given - Provider: Allison Sánchez, VEDA) polyethylene glycol (Miralax) packet 17 g 17 g, Oral, DAILY PRN, Starting on Mon06/28/19 at 1619, Until Mon07/01/19 at 1846, Constipation, Administer if no bowel movement within 48 hours to achieve: (1) One bowel movement at least every 48 hours, AND (2) without straining. If multiple PRN bowel medications ordered, start with polyethylene glycol, then lactulose, then oral bisacodyl, then bisacodyl suppository, then magnesium citrate, then tap water enema. Multiple medications may be given concomitantly for constipation., Routine 0531 (Given - Provider: Nelson Tomlinson RN) prochlorperazine (COMPAZINE) injection 10 mg(Linked Group 7) 10 mg, Intravenous, EVERY 6 HOURS PRN, Starting on Mon06/28/19 at 1619, Until Mon07/01/19 at 1846, Nausea, Vomiting, If multiple antiemetics are ordered, use ondansetron first. If ondansetron ineffective use prochlorperazine. , Recovery ([facility]overy[facility]ospital Unit), Routine prochlorperazine (Compazine) tablet 10 mg(Linked Group 7) 10 mg, Oral, EVERY 6 HOURS PRN, Starting on Mon06/28/19 at 1619, Until Mon07/01/19 at 1846, Nausea, Vomiting, If multiple antiemetics are ordered, use ondansetron first. If ondansetron ineffective use prochlorperazine. PO Preferred. If patient unable to take PO, may give IV if ordered., Recovery ([facility]ospital [facility]), Routine sodium chloride 0.9 % (flush) flush 5-20 mL 5-20 mL, Intravenous, EVERY 1 MIN PRN, Starting on Mon06/28/19 at 1619, Until Mon07/01/19 at 1846, flush, Flush pertains to all indwelling lines. Flush per protocol found in the job aid using the link provided on this medication record., Recovery (Recovery[facility]ospital Unit), Routine Linked Groups Order Group 1: POCT Fingerstick Glucose (CANCELED) Routine, 4 TIMES DAILY BEFORE MEALS & AT BEDTIME, First occurrence on Mon06/28/19 at 1700, Until Specified, Consider choosing FOUR TIMES A DAY BEFORE MEALS AND AT BEDTIME as frequency for: Patients who have good hypoglycemia awareness: -Patients who are eating meals during the day and sleeping at night -Patient who are otherwise stable And insulin lispro (HumaLOG) VIAL injection 1-5 UnitsJump to med 1-5 Units, Subcutaneous, 3 TIMES DAILY BEFORE MEALS, First dose on Mon06/28/19 at 1630, Until Discontinued, CORRECTION BOLUS [1-4 Units] Sensitive Sliding Scale: Correction factor 40 (1 unit of insulin is expected to drop the glucose 40 mg/dL) BG 160 - 200 Give 1 unit BG 201 - 240 Give 2 units BG 241 - 280 Give 3 units BG greater than 280, give 4 units and recheck BG in 2 hours. - If recheck BG is LESS than 280, give no insulin and resume schedule - If recheck BG is GREATER than 280, give 4 units and repeat BG in 2 hours (no more than 3 times) & call for new insulin orders. DO NOT hold if NPO, unless specifically told to do so. Per Blood Glucose Monitoring Policy, re-check a BG of > 240 in 2 hours., Routine Group 2: lidocaine (LIDODERM) 5 % patch 3 patchJump to med 3 patch, Transdermal, EVERY 24 HOURS, First dose on 06/29/19 at 1030, Until Discontinued, Apply patch(es) for 12 hours, and then remove for 12 hours, Routine And lidocaine (LIDODERM) 5 %(700 mg/patch) Patch RemovalJump to med Transdermal, EVERY 24 HOURS, First dose on 06/29/19 at 2145, Until Discontinued, Remove lidocaine 5 %(700 mg/patch) patch Group 3: nicotine (NICODERM CQ) 21 mg/24 hr patch 21 mgJump to med 21 mg (1 patch), Transdermal, DAILY, First dose on Mon06/28/19 at 1845, Until Discontinued, Routine And nicotine (NICODERM CQ) 21 mg/24 hr patch Patch VerificationJump to med Transdermal, 2 TIMES DAILY, First dose on 06/29/19 at 0630, Until Discontinued, Verify nicotine 21 mg/24 hr patch And nicotine (NICODERM CQ) 21 mg/24 hr patch Patch RemovalJump to med Transdermal, DAILY, First dose on 06/29/19 at 0900, Until Discontinued, Remove nicotine 21 mg/24 hr patch Group 4: glucose (GLUTOSE) 40% oral gelJump to med 15-30 g, Buccal, EVERY 30 MIN PRN, Starting on Mon06/28/19 at 1500, Until Mon07/01/19 at 1846, Low blood sugar, For BG 50-70 mg/dL: Oral treatment preferred:?? If able to drink, give 120 mL Juice or Regular (not diet) soda OR If NPO, give 15 gram glucose 40% oral gel massaged into buccal mucosa OR if unconscious or uncooperative, give 25 gram (250 mL) Dextrose 10% IV over 15 minutes per protocol OR, if no IV access, 1 mg Glucagon IM. For BG less than 50 mg/dL: Oral treatment preferred:?? If able to drink, give 240 mL Juice or Regular (not diet) soda OR If NPO, give 30 gram glucose 40% oral gel massaged in buccal mucosa OR if unconscious or uncooperative, give 25 gram (250 mL) Dextrose 10% IV over 15 minutes per protocol OR, if no IV access, 1 mg Glucagon IM. Recheck BG in 30 minutes. May repeat juice/soda, gel, dextrose or glucagon once per episode. For persistent hypoglycemia, consider longer-acting treatment for the duration of the active insulin. 1 tube contains 15 grams of glucose (net weight of tube = 37.5 grams., Routine Or dextrose 10% infusionJump to med 250 mL, at 1,000 mL/hr, Intravenous, EVERY 30 MIN PRN, Starting on Mon06/28/19 at 1500, Until Mon07/01/19 at 1846, For BG 50-70 mg/dL: Oral treatment preferred:?? If able to drink, give 120 mL Juice or Regular (not diet) soda OR If NPO, give 15 gram glucose 40% oral gel massaged into buccal mucosa OR if unconscious or uncooperative, give 25 gram (250 mL) Dextrose 10% IV over 15 minutes per protocol OR, if no IV access, 1 mg Glucagon IM. For BG less than 50 mg/dL: Oral treatment preferred:?? If able to drink, give 240 mL Juice or Regular (not diet) soda OR If NPO, give 30 gram glucose 40% oral gel massaged in buccal mucosa OR if unconscious or uncooperative, give 25 gram (250 mL) Dextrose 10% IV over 15 minutes per protocol OR, if no IV access, 1 mg Glucagon IM. Recheck BG in 30 minutes. May repeat juice/soda, gel, dextrose or glucagon once per episode. For persistent hypoglycemia, consider longer-acting treatment for the duration of the active insulin. Or glucagon (human recombinant) injection SolR 1 mgJump to med 1 mg, Intramuscular, EVERY 30 MIN PRN, Starting on Mon06/28/19 at 1500, Until Mon07/01/19 at 1846, Low blood sugar, For BG 50-70 mg/dL: Oral treatment preferred:?? If able to drink, give 120 mL Juice or Regular (not diet) soda OR If NPO, give 15 gram glucose 40% oral gel massaged into buccal mucosa OR if unconscious or uncooperative, give 25 gram (250 mL) Dextrose 10% IV over 15 minutes per protocol OR, if no IV access, 1 mg Glucagon IM. For BG less than 50 mg/dL: Oral treatment preferred:?? If able to drink, give 240 mL Juice or Regular (not diet) soda OR If NPO, give 30 gram glucose 40% oral gel massaged in buccal mucosa OR if unconscious or uncooperative, give 25 gram (250 mL) Dextrose 10% IV over 15 minutes per protocol OR, if no IV access, 1 mg Glucagon IM. Recheck BG in 30 minutes. May repeat juice/soda, gel, dextrose or glucagon once per episode. For persistent hypoglycemia, consider longer-acting treatment for the duration of the active insulin., Routine Group 5: HYDROmorphone (Dilaudid) tablet 2 mg (CANCELED) 2 mg, Oral, EVERY 4 HOURS PRN, Starting on Mon06/28/19 at 1500, Until Mon07/01/19 at 0849, Pain, for mild pain (1-3), May give an additional 2 mg once if pain not relieved in 30-60 minutes., Routine Or HYDROmorphone (Dilaudid) tablet 4 mg (CANCELED)Jump to med 4 mg, Oral, EVERY 4 HOURS PRN, Starting on Mon06/28/19 at 1500, Until Mon07/01/19 at 0849, Pain, for moderate pain (4-6), May give an additional 2 mg once if pain not relieved in 30-60 minutes., Routine Or HYDROmorphone (Dilaudid) tablet 6 mg (CANCELED) 6 mg, Oral, EVERY 4 HOURS PRN, Starting on Mon06/28/19 at 1500, Until Mon07/01/19 at 0849, Pain, for severe pain (7-10), May give an additional 2 mg once if pain not relieved in 30-60 minutes., Routine Group 6: ondansetron (Zofran) tablet 4 mgJump to med 4 mg, Oral, EVERY 8 HOURS PRN, Starting on Mon06/28/19 at 1619, Until Mon07/01/19 at 1846, Nausea, Vomiting, If multiple antiemetics are ordered, use ondansetron first. PO Preferred. If patient unable to take PO, may give IV if ordered. May repeat times one in 45 minutes if ineffective., Recovery (Recovery-Hospital Unit), Routine Or ondansetron (ZOFRAN) injection 4 mgJump to med 4 mg, Intravenous, EVERY 8 HOURS PRN, Starting on Mon06/28/19 at 1619, Until 07/01/19 at 1846, Nausea, May repeat times one in 30 minutes if ineffective. If multiple antiemetics are ordered, use ondansetron first, Recovery (Recovery[facility]ospital Unit) Group 7: prochlorperazine (Compazine) tablet 10 mgJump to med 10 mg, Oral, EVERY 6 HOURS PRN, Starting on Mon06/28/19 at 1619, Until 07/01/19 at 1846, Nausea, Vomiting, If multiple antiemetics are ordered, use ondansetron first. If ondansetron ineffective use prochlorperazine. PO Preferred. If patient unable to take PO, may give IV if ordered., Recovery (Recovery-Hospital Unit), Routine Or prochlorperazine (COMPAZINE) injection 10 mgJump to med 10 mg, Intravenous, EVERY 6 HOURS PRN, Starting on Mon06/28/19 at 1619, Until 07/01/19 at 1846, Nausea, Vomiting, If multiple antiemetics are ordered, use ondansetron first. If ondansetron ineffective use prochlorperazine. , Recovery (Recovery-Hospital Unit), Routine documented in this encounter Care Teams Senior Informatica Etl Developer Relationship Specialty Start Date End Date Luis E Narayan MD [facility] [address] [place] [address] PCP - General Family Medicine 03/26/19 01/19/22 documented as of this encounter
--- OUTSIDE RECORDS SUMMARY | 2024-03-04 21:28 | XMS_ITS | Encounter Summary ---
Author Organization [facility] [place] [address] Care Team Providers Care Mosaicist Name Role Phone Luis E Narayan MD Primary Care Provider Encounter Details Date Type Department Care Team (Late Contact Info) Description 07/02/2019 Telephone [place] [phone] Camilla Carrera MD [facility] [place] [address] Social History Tobacco Use Types Packs/Day Years [...] encounter Miscellaneous Notes * Telephone Encounter - Camilla Carrera - 07/02/2019 9:58 AM EST Patient refused ibuprofen and narcotics in hospital. Calls requesting flexeril Rx. Gave 3 days and stated if she needs longer course to discuss with herPCP. Can obtain lidocaine patches OTC at the pharmacy. Camilla Carrera MD documented in this encounter Plan of Treatment Upcoming Encounters Date Type Department Care Team (Late st Contact Info) Description 03/20/2024 9:00 AM EDT TH Visit (TeleHealth) Sleep Center at [facility] [address] [address] Denisse Hardwick, [facility] 03/20/2024 2:00 PM EDT Clinical Support Family Medicine at [facility] [address] [place] [address] Julia Low, [facility] 05/01/2024 11:20 AM EDT Appointment Mammography/[place] [address] Rodney Padilla MD [address] FAMILY MEDICINE [place], [place] [phone] 05/01/2024 1:45 PM EDT Office Visit Ophthalmology at [place] [phone] Juanpablo Hernandez MD [facility] [address] 01/30/2025 1:30 PM EDT Appointment Hematology and Oncology at [place] [phone] 01/30/2025 3:[address] Scan at [place] [phone] Arturo Cordero MD [facility] DR HEMATOLOG[place] [address] 01/30/2025 4:15 PM EDT Office Visit Hematology [place] [address] Arturo Cordero MD [facility] DR [place]EMATOLOGY [place] [address] documented as of this encounter Visit Diagnoses Not on filedocumented in this encounter Care Teams Mosaicist Relationship Specialty Start Date End Date LuisE Narayan MD [facility] DR LIL[address] [place] [address] PCP - General Family Medicine 03/26/19 01/19/22 documented as of this encounter
--- OUTSIDE RECORDS SUMMARY | 2024-03-04 21:28 | XMS_ITS | Encounter Summary ---
Author Organization [facility] [place] [address] Care Team Providers Care Dixonac Operator Name Role Phone Luis E Narayan MD Primary Care Provider Reason for Visit * Reason Onset Date Comments Questions 06/13/2019 Encounter Details Date Type Department Care Team (Late st Contact Info) Description 06/13/2019 Telephone Family Medicine at [facility] [address] [place] [phone] George Lorenzo Questions Social History Tobacco Use Types Packs/Day [...] encounter Miscellaneous Notes * Telephone Encounter - Miracle Singh V - 06/25/2019 1:15 PM EST Left message for patient to help schedule EEG. Please transfer back to typing secretary, thank you. * Telephone Encounter - Shannon Ward RN - 06/24/2019 1:11 PM EST Voicemail msg left on identified phone to call clinic to discuss. Noted EEG ordered 05/02/19 and 05/10/19. Not scheduled yet. Note forwarded to typing secretary to assist in scheduling. * Telephone Encounter - Shea Urena RN - 06/13/2019 3:54 PM EST Tc placed to patient. Left VM asking for a return mariann. I am wondering if itis an EKG she is lookingfor as she is pre op. Will await return call. * Telephone Encounter - George Lorenzo - 06/13/2019 3:44 PM EST Message: Patient stated she should have an order for an EEG. Please call patient to discuss Ask caller their first and last name and relationship to the patient: patient Best time to call back: any Ok to leave a message: yes Ok to send - message: no Offered Appointment: n/a MA/Nurse/[place] contacted via: Message: y Call: n Pager: n documented in this encounter Plan of Treatment Upcoming Encounters Date Type Department Care Team (Late st Contact Info) Description 03/20/2024 9:00 AM EDT TH Visit (TeleHealth) Sleep Center at [facility] [address] [place] [address] Denisse Hardiwck, [facility] 03/20/2024 2:00 PM EDT Clinical Support Family Medicine at [facility] [address] [place] [address] Julia Low, [facility] 05/01/2024 11:20 AM EDT Appointment Mammography/[place] [address] Rodney Padilla MD [address] [place] [place] [address] 05/01/2024 1:45 PM EDT Office Visit Ophthalmology at [place] [phone] Juanpablo Hernandez MD [facility] [place] [address] 01/30/2025 1:30 PM EDT Appointment Hematology and Oncology at [place] [address] 01/30/2025 3:[address] Scan at [place] [address] Arturo Cordero MD [facility] DR [place] [address] 01/30/2025 4:15 PM EDT Office Visit Hematology and Oncology at [place] [phone] Arturo Cordero MD [facility] DR HEMATOLOGY [place] [address] documented as of this encounter Visit Diagnoses Not on filedocumented in this encounter Care Teams Dixonac Operator Relationship Specialty Start Date End Date Luis E Narayan MD [facility] [address] [place] [address] PCP - General Family Medicine 03/26/19 01/19/22 documented as of this encounter
--- OUTSIDE RECORDS SUMMARY | 2024-03-04 21:28 | XMS_ITS | Encounter Summary ---
[place] [address] Care Team Providers Care Assistant Analyst Name Role Phone Luis E Narayan MD Primary Care Provider Encounter Details Date Type Department Care Team (Late st Contact Info) Description 06/21/2019 11:40 AM EST Clinical [place] [address] Renal mass Social History Tobacco Use Types Packs/Day Years Used Date Smoking Tobacco: Every Day Cigarettes 1 40 Smokeless Tobacco: Never Tobacco Cessation:Ready to Q uit: Yes Alcohol Use Standard Drinks/Week Comments No 0 (1 standard drink = 0.6 oz pur e alcohol) Sex and Gender Information Value Date Recorded Sex Assigned at Not on file Gender Identity Not on file Sexual Orientation Not on file documented as of this encounter Last Filed Vital Signs Vital Sign Reading Time Taken Comments Blood Pressure - - Pulse 74 06/21/2019 11:39 AM EST Temperature - - Respiratory Rate - - Oxygen Saturation 97% 06/21/2019 11: 39 AM EST Inhaled Oxygen Concentration - - Weight 101.4 kg (223 lb 9.6 oz) 019 11:39 AM EST Height 157.5 cm (5' 2) 06/21/2019 11:3 9 AM EST Body Mass Index 40.9 06/21/2019 11:39 AM EST documented in this encounter Progress Notes * Moses Alvarez RN - 06/21/2019 11:40 AM EST PAT questionnaire reviewed with patient and Gia (daughter) while in Pre Admission testing. Pre-operative instruction booklet reviewed. Patient verbalizes a good understanding of all information reviewed. Reviewed importance of pain control and cough and deep breathing exercise during the post-operative period. Hibiclens given to patient with instructions to only use if Dr. Medina indicated this during her last visit. PLAN: Testing: Labs, T&S Special medication instructions: Procedure date: 06.28.[address] Medina documented in this encounter Plan of Treatment Upcoming Encounters Date Type Department Care Team (Late st Contact Info) Description 03/20/2024 9:00 AM EDT TH Visit (TeleHealth) Sleep Center at [facility] [address] [place] [phone] Denisse Hardwick, [facility] 03/20/2024 2:00 PM EDT Clinical Support Family Medicine [facility] [address] [place] [phone] Julia Low, [facility] 05/01/2024 11:20 AM EDT Appointment Mammography/[place] [phone] Rodney Padilla MD [address] [facility] [place] [address] 05/01/2024 1:45 PM EDT [place] [phone] Juanpablo Hernandez MD [facility] [address] 01/30/2025 1:30 PM EDT Appointment Hematology [place] [phone] 01/30/2025 3:[address] [place] [place] [address] Arturo Cordero MD [facility] DR HEMATOLOGY [place] [address] 01/30/2025 4:15 PM EDT Office Visit Hematology and Oncology at [facility] [place] [address] Arturo Cordero MD [facility] DR [place]EMAT[place] [address] documented as of this encounter Procedures Procedure Name Priority Date/Time Associated Diagnosis Comments HC URINE CULTURE Routine 06/21/2019 12:0 6 PM EST Renal mass ABORH RECHECK STATUS Routine 06/21/2019 12:02 PM EST HEMOGRAM Routine 06/21/2019 12:02 PM EST Renal mass DIFFERENTIAL, AUTOMATED Routine 06/21/2019 12:02 PM EST Renal mass HC ABO-MICROTITER Routine 06/21/2019 12: 02 PM EST Renal mass ABO/RH TYPING Routine 06/21/2019 12:02 PM EST Renal mass HC CBC,PLT & AUTO DIFF Routine 06/21/2019 12:02 PM EST Renal mass ANTIBODY SCREEN Routine 06/21/2019 12:02 PM EST Renal mass HC VENIPUNCTURE Routine 06/21/2019 12:02 PM EST Renal mass documented in this encounter Results * (ABNORMAL) Urine culture Clean Catch Urine (06/21/2019 12:06 PM EST) Urine Culture 10,000-49,000 cfu/ml mixed mucosal nimisha Note: Culture shows multiple bacterial species suggesting mucosal contamination. If symptoms continue to indicate urinary tract infection, submit a new specimen. (A) [facility] Urine specimen obtained by clean catch procedure (specimen) 06/21/2019 12:06 PM EST 06/21/2019 12:28 PM EST Narrative Resulting Agency Comment Spec In Lab Avila Medina MD MICROBIOLOGY - GENER AL ORDERABLES [facility] [place] [address] * ABORH Recheck Status (06/21/2019 12:02 PM EST) ABORH Recheck Order Order Placed [facility] ABORH Type Recheck Complete [facility] Blood specimen (specimen) 06/21/2019 12:02 PM EST 06/21/2019 12:09 PM EST Narrative Resulting Agency Comment Spec In Lab Avila Medina MD BLOOD BANK LAB ORDER SHYLA Performing Organization Address City/[facility]/ZIP Co de Phone Number [facility] [place] [address] * Antibody screen (06/21/2019 12:02 PM EST) Ab Screen Interp Negative [facility] Expires at [id number] on: 07/01/2019 [facility] Blood specimen (specimen) 06/21/2019 12:02 PM EST 06/21/2019 12:09 PM EST Narrative Resulting Agency Comment Spec In Lab Avila Medina MD BLOOD BANK LAB ORDER SHYLA [facility] [place] [place] [address] * ABO/Rh Typing (06/21/2019 12:02 PM EST) ABORH Type O Pos [facility] Blood specimen (specimen) 06/21/2019 12:02 PM EST 06/21/2019 12:09 PM EST Narrative Resulting Agency Comment Spec In Lab Avila Medina MD BLOOD BANK LAB ORDER SHYLA [facility] [place] [place] [address] * (ABNORMAL) Differential, Automated (06/21/2019 12:02 PM EST) [facility] Neutrophil % 56.8 % [facility] Neutrophil Absolute 4.68 1.70 - 6.10 x10(3)/ L [facility] Lymph % 30.3 % [facility] Lymphocytes Abs 2.5 0.9 - 3.2 x10(3)/ L [facility] Monocyte % 5.2 % [facility] Monocyte Abs 0.4 0.3 - 0.9 x10(3)/ L [facility] Eos % 6.6 % [facility] Eosinophils Abs 0.5(H) 0.0 - 0.4 x10(3)/[facility] Basophil % 0.7 % [facility] Baso Absolute 0.1 0.0 - 0.1 x10(3)/ L [facility] Immature Gran % 0.40 % [facility] Comment: Immature granulocytes(IG's)percentage and absolute count will include metamyelocytes, myelocytes, and promyelocytes. Blood smears from CBCs yielding IG's will be scanned manually for concordance. If this scan disagrees with the automated IG or if promyelocytes are noted, a manual differential will be performed. Immature Gran Absolute 0.03 0.00 - 0.04 x10(3)/ L [facility] Blood specimen (specimen) 06/21/2019 12:02 PM EST 06/21/2019 12:12 PM EST Narrative Resulting Agency Comment Spec In Lab Avila Medina MD HEMATOLOGY ORDERABLE S [facility] [place] [address] * (ABNORMAL) Hemogram (06/21/2019 12:02 PM EST) [facility] White Blood Cell 8.2 4.0 - 9.5 x10(3)/[facility] Red Blood Cell 4.64 4.00 - 5.21 x10(6)/ L [facility] Hemoglobin 13.2 11.7 - 15.5 gm/dL [facility] Hematocrit 41.2 35.7 - 45.8 % [facility] Mean Cell Volume 88.8 82.6 - 94.4 fL [facility] Mean Cell Hemoglobin 28.4 27.1 - 32.0 pg [facility] Mean Cell Hemoglobin Concentration 32.0 31.7 - 35.0 gm/dL [facility] Platelet 359(H) 145 - 357 x10(3)/[facility] RDW Standard Deviation 45.2 37.0 - 46.0 fL [facility] RDW coefficient of variation 14.0 11.5 - 14.1 % [facility] Mean Platelet Volume 9.5 7.6 - 12.9 fL [facility] NRBC% auto 0.0 % [facility] NRBC Absolute 0.000 0.000 - 0.000 x10(3)/[facility] Blood specimen (specimen) 06/21/2019 12:02 PM EST 06/21/2019 12:12 PM EST Narrative Resulting Agency Comment Spec In Lab Avila Medina MD HEMATOLOGY ORDERABLE S [facility] [address] * (ABNORMAL) Comprehensive metabolic panel (non-fasting) (06/21/2019 12:02 PM EST) [facility] Glucose 205(H) 65 - 199 mg/dL [facility] Comment:Diabetes: >=200 mg/d L plus symptoms Blood Urea Nitrogen 22(H) 8 - 18 mg/dL [facility] Creatinine 0.90 0.70 - 1.20 mg/dL [facility] Sodium 138 135 - 145 mmol/L [facility] Potassium 4.2 3.5 - 5.0 mmol/L [facility] Comment: Please note: ??Patients with WBC >100,000 may have falsely elevated Potassium levels. ??For accurate Potassium quantification in these patients send serum separator tube (gold top) for subsequent determinations. ??Contact the Clinical Chemistry Laboratory if there are any questions. Chloride 100 98 - 107 mmol/L [facility] Carbon Dioxide 27 22 - 31 mmol/L [facility] Anion Gap 11 5 - 15 mmol/L [facility] Calcium 9.6 8.5 - 10.5 mg/dL [facility] Protein, Total 7.1 6.1 - 8.0 gm/dL [facility] Albumin 4.1 3.2 - 5.2 gm/dL [facility] Aspartate Aminotransferase 34(H) 0 - 30 unit/L [facility] Alanine Aminotransferase 31(H) 0 - 30 unit/L [facility] Alkaline Phosphatase 86 35 - 105 unit/L [facility] Bilirubin, Total 0.3 0.2 - 1.3 mg/dL [facility] Est Glomerular Filtration Rate 70 >=60 mL/min/1. 73 m?? [facility] Comment: The eGFR was calculated using the CKD-EPI equation. As with all creatinine based estimates of kidney function, eGFR values calculated with the CKD-EPI equation are not accurate in patients with acute kidney failure, extremes of body mass or the acutely ill. [email or web address] eGFR 81 >=60 mL/min/1. 73 m?? [facility] Comment: The eGFR was calculated using the CKD-EPI equation. As with all creatinine based estimates of kidney function, eGFR values calculated with the CKD-EPI equation are not accurate in patients with acute kidney failure, extremes of body mass or the acutely ill. [email or web address] Blood specimen (specimen) 06/21/2019 12:02 PM EST 06/21/2019 12:12 PM EST Narrative Resulting Agency Comment Spec In Lab Avila Medina MD CHEMISTRY ORDERABLES [facility] [place] [address] documented in this encounter Visit Diagnoses Diagnosis Renal mass Unspecified disorder of kidney and ureter documented in this encounter Care Teams Assistant Analyst Relationship Specialty Start Date End Date Luis E Narayan MD [facility] [address] [place] [address] PCP - General Family Medicine 03/26/19 01/19/22 documented as of this encounter
--- OUTSIDE RECORDS SUMMARY | 2024-03-04 21:28 | XMS_ITS | Encounter Summary ---
Author Organization [facility] [place] [address] Care Team Providers Care Insurance Compliance Analyst Name Role Phone Luis E Narayan MD Primary Care Provider Reason for Referral * Diagnostic Test (Routine) - Closed Specialty Diagnoses / Procedures Referred By Gonzalez kumari Referred To Contact Cardiology Diagnoses Peripheral edema Coronary artery disease involving [place] coronary artery of [place] heart with angina pectoris H/O heart artery stent Procedures Echocardiogram Transthoracic([facility]) Luis E Narayan MD [facility] [place] [address] [facility] [place] [address] Referral ID Status Reason Start Date Expiration Date V isits Requested Visits Authorized [id number] Closed Specialty Service Requested 06/25/2019 08/23/2019 1 1 Reason for Visit * Diagnostic Test (Routine) - Closed Specialty Diagnoses / Procedures Referred By Gonzalez kumari Referred To Contact Cardiology Diagnoses Peripheral edema Coronary artery disease involving [place] coronary artery of [place] heart with angina pectoris H/O heart artery stent Procedures Echocardiogram Transthoracic([facility]) Luis E Narayan MD [facility] [place] [address] [facility] [place] [address] Referral ID Status Reason Start Date Expiration Date V isits Requested Visits Authorized [id number] Closed Specialty Service Requested 06/25/2019 08/23/2019 1 1 Encounter Details Date Type Department Care Team (Latest Contact Info) Description 06/27/2019 10:19 AM EST - 06/27/2019 1:05 PM EST Hospital Encounter Non-[place] [phone] Luis E aNrayan MD [facility] [address] [place] [address] Peripheral edema; Coronary artery disease involving [place] coronary artery of [place] heart with angina pectoris; H/O heart artery stent x4 LCX; H/O heart artery stent Discharge Disposition: Home Social History Tobacco Use [...] 04/09/2019 06/22/2020 fluticasone propionate (FLONASE) 50 mcg/actuation Humphreys, Suspension 50 sprays by Each Nare route 2 times daily. 16 g 04/09/2019 08/01/2019 loratadine (CLARITIN) 10 mg Tablet Take 1 tablet by mouth daily. 90 tablet 04/09/2019 09/04/2019 budesonide-formoterol (SYMBICORT) 80-4.5 mcg/actuation HFA Aerosol Inhaler Inhale 2 puffs into the lungs 2 times daily. 1 Inhaler 11 04/09/2019 04/19/2020 clopidogrel (PLAVIX) 75 mg Tablet Take 1 tablet by mouth daily. 90 tablet 3 04/09/2019 07/01/2019 metoprolol succinate (TOPROL XL) 25 mg Tablet [...] inhaler 07/14/20102019 ALBUTEROL SULFATE (PROVENTIL HFA INHL) 07/14/201010/07/ 021 documented as of this encounter Plan of Treatment Upcoming Encounters Date Type Department Care Team (Late st Contact Info) Description 03/20/2024 9:00 AM EDT TH Visit (TeleHealth) Sleep Center at [facility] [address] [place] [phone] Denisse Hardwick, [facility] 03/20/2024 2:00 PM EDT Clinical Support Family Medicine [facility] [address] [place] [phone] Julia Low, [facility] 05/01/2024 11:20 AM EDT Appointment Mammography/[place] [phone] Rodney Padilla MD [address] [place] [address] 05/01/2024 1:45 PM EDT Office Visit Ophthalmology at [place] [phone] Juanpablo Hernandez MD [facility] [place] [place] [address] 01/30/2025 1:30 PM EDT Appointment Hematology and Oncology at [place] [phone] 01/30/2025 3:[address] Scan at [place] [phone] Arturo Cordero MD [facility] [place] [address] 01/30/2025 4:15 PM EDT Office Visit Hematology [place] [phone] Arturo Cordero MD [facility] [place] [address] documented as of this encounter Procedures Procedure Name Priority Date/Time Associated Diagnosis Comments ECHO COMPLETE Routine 06/27/2019 11:38 AM EST Peripheral edema Coronary artery disease involving [place] coronary artery of [place] heart with angina pectoris H/O heart artery stent documented in this encounter Results * ECHO COMPLETE (06/27/2019 11:38 AM EST) EF 71 HEARTLAB SYSTEM Anatomical Region Laterality Modality Other 06/27/2019 Narrative 06/27/2019 11:52 AM EST Procedure: ?Transthoracic Echocardiogram Patient: ?JOSSELINE Tran ?(Age): 1960(58y) Med Rec#: ? [id number] ?Sex: ?F ? Site Loc: ? [facility] ?Ht / Wt: ??158(cm)/101(kg) Pt. Loc: ?Echo Lab ?BSA: ?2.01 Study Date: ?? 06/27/2019 ?Pt. Type: Outpatient Tape: ? Referring: PIOTR Reading: Jeff Barraza ??([id number]) Personal Financial Representative: Sumit Ratliff [facility] Diagnosis: *Edema, unspecified (R60.9) *Atherosclerotic heart disease of [place] coronary artery with unspecified angina pectoris (I25.119) [...] E-wave Vmax ?1 ?m/sec ? MV deceleration [id number] ?msec ? MV A-wave Vmax ?1 ?m/sec [...] ?cm2/m2 ? LAUREN (continuity VTI)2.2 ?cm ? LAUREN (continuity VTI)1.1 ?cm2/m2 ? Tricuspid Valve ?Value [...] ? Mid-Inferior ?Normal ? Mid-Inferoseptal ?Normal ? [place]-Septal ? Normal ? [place]-Anterior ? Normal ? [place]-Lateral ?Normal ? [place]-Inferior ? Normal ? [place]-Tip ?Normal ? This report has been electronically signed by: Jeff Barraza MD ? 06/27/2019 11:51:50 Images reviewed and interpretation verified [facility] Procedure Note Jeff Barraza MD - 06/27/2019 Procedure: Transthoracic Echocardiogram Patient: JOSSELINE LOMAX(Age): 1960(58y) Med Rec#: [id number] Sex: F Site Loc: [facility] Ht / Wt: 158(cm)/101(kg) Pt. Loc: Echo Lab BSA: 2.01 Study Date: 06/27/2019 Pt. Type: Outpatient Tape: Referring: PIOTR Reading: Jeff Barraza ([id number]) Personal Financial Representative: Sumit Ratliff [facility] Diagnosis: *Edema, unspecified (R60.9) *Atherosclerotic heart disease of [place] coronary artery with unspecified angina pectoris (I25.119) [...] MV E-wave Vmax 1 m/sec MV deceleration [id number] msec MV A-wave Vmax 1 m/sec MV [...] Normal Mid-Posterolateral Normal Mid-Inferior Normal Mid-Inferoseptal Normal [place]-Septal Normal [place]-Anterior Normal [place]-Lateral Normal [place]-Inferior Normal [place]-Tip Normal This report has been electronically signed by: Jeff Barraza MD 06/27/2019 11:51:50 Images reviewed and interpretation verified [facility] Luis E Narayan MD ECHO ORDERABLES documented in this encounter Visit Diagnoses Diagnosis Peripheral edema Edema Coronary artery disease involving [place] coronary artery of [place] heart with angina pectoris H/O heart artery stent x4 LCX Postsurgical percutaneous transluminal coronary angioplasty status documented in this encounter Care Teams Insurance Compliance Analyst Relationship Specialty Start Date End Date Luis E Narayan MD [facility] [address] [place] [address] PCP - General Family Medicine 03/26/19 01/19/22 documented as of this encounter
--- OUTSIDE RECORDS SUMMARY | 2024-03-04 21:28 | XMS_ITS | Encounter Summary ---
Author Organization [facility] [place] [address] Care Team Providers Care Senior Logistics Manager Name Role Phone Luis E Narayan MD Primary Care Provider Reason for Visit * Auth/Cert Specialty Diagnoses / Procedures Referred By Gonzalez kumari Referred To Contact Diagnoses Renal Mass Procedures PRO LAP, PARTIAL NEPHRECTOMY LAPAROSCOPY, PARTIAL NEPHRECTOMY, ROBOTIC ASSIST (WRVU 27.41) MODIFIER ROBOT,DAVINCI XI Referral ID Status Reason Start Date Expiration Date Visits Re quested Visits Authorized [id number] 1 1 Encounter Details Date Type Department Care Team (Latest Contact Info) Description 06/28/2019 7:02 AM EST - 07/01/2019 4:46 PM [facility] Hospital Encounter [address] [place] [address] Avila Medina MD [facility] [place] [address] Renal mass, left Discharge Disposition: Home Social History Tobacco [...] Sign Reading Time Taken Comments Blood Pressure 140/82 07/01/2019 12:03 PM EST Pulse 62 07/01/2019 9:20 AM EST Temperature 36.7 ??C (98 ??F) 07/01/2019 12:03 PM EST Respiratory Rate 18 07/01/2019 12:03 PM EST Oxygen Saturation 98% 07/01/2019 12:03 PM EST Inhaled Oxygen Concentration - - Weight 100.7 kg (222 lb) 06/28/2019 7:50 AM EST Height 161.3 cm (5' 3.5) 06/28/2019 7:50 AM EST Body Mass Index 38.71 06/28/2019 7:50 AM EST documented in this encounter Discharge Summaries * Camilla Carrera R - 06/28/2019 1:45 PM EST UROLOGY [...] Hospital Course: Alize Gramajo was admitted to [facility] on 06/28/2019 through the Same Day Surgery [...] that part of your care. Urology Clinic: [phone] PCP: Luis E Narayan MD, . Please follow-up with your PCP in 1-2 weeks or sooner as needed. Scheduled Appointments: The following appointments have been scheduled on your behalf: Future Appointments and Orders Future Appointments and Orders Future Appointments Provider Department Dept Phone 07/09/2019 2:30 PM [facility] Neurodiagnostic at [facility] Arrive at: [facility] Coordinator Area [phone] 07/17/2019 9:20 AM LAB, THREE L Lab 3L [facility] Arrive at: [facility] [employer] Coordinator Area 07/17/2019 10:20 AM Avila Medina MD Urology at [facility] Arrive at: [facility] [employer] Coordinator Area 5B [phone] 07/22/2019 1:00 PM Luis E Narayan MD Primary Care at [facility] Arrive at: [facility] Coordinator 2 South [phone] 08/05/2019 1:45 PM Amy Aguiar MD Neurology at [facility] Arrive at: [facility] [employer] Coordinator Area [phone] 08/13/2019 7:30 PM SLEEP, PHYSICIAN Sleep Center at [facility] Arrive at: [facility] [employer] Coordinator [address] [place] [phone] Future Orders Complete By Expires Basic Metabolic [...] 07/09/2019 2:30 PM C-ELECTRONEURO, DIAGNOSTICS Neurodiagnostic at [facility] Arrive at: [employer] Coordinator Area [phone] 07/17/2019 9:20 AM LAB, THREE L Lab [address] [place] [address] Arrive at: [facility] Area [phone] 07/17/2019 10:20 AM Avila Medina MD Urology at [facility] Arrive at: [facility] Area [phone] 07/22/2019 1:00 PM Luis E Narayan MD Primary Care at [facility] Arrive at: [facility] [employer] Coordinator 2 [facility] [phone] 08/05/2019 1:45 PM Amy Aguiar MD Neurology at [facility] Arrive at: [facility] Area [phone] 08/13/2019 7:30 PM SLEEP, PHYSICIAN Sleep Center at [facility] Arrive at: [employer] Coordinator [address] [place] [phone] Future Orders Complete By Expires Basic Metabolic [...] managed by the Urologic Surgery Team at [facility]. If you have any questions or concerns, please feel free to contact us. Provider Contact Information: Urology Clinic: [phone] [facility] (after business hours): CC: Luis E Narayan [...] 07/09/2019 2:30 PM C-ELECTRONEURO, DIAGNOSTICS Neurodiagnostic at [facility] Arrive at: [facility] [employer] Coordinator Area 3C [phone] 07/17/2019 9:20 AM LAB, THREE L Lab 3[facility] Arrive at: [employer] Coordinator Area 3L [phone] 07/17/2019 10:20 AM Avila Medina MD Urology at [facility] Arrive at: [employer] Coordinator Area 5B [phone] 07/22/2019 1:00 PM Luis E Narayan MD Primary Care at [facility] Arrive at: [employer] Coordinator 2 [facility] [phone] 08/05/2019 1:45 PM Amy Aguiar MD Neurology at [facility] Arrive at: [employer] Coordinator Area [phone] 08/13/2019 7:30 PM SLEEP, PHYSICIAN Sleep Center at [facility] Arrive at: [employer] Coordinator [address] [place] [phone] Future Orders Complete By Expires Basic Metabolic [...] 04/09/2019 06/22/2020 fluticasone propionate (FLONASE) 50 mcg/actuation Davis, Suspension 50 sprays by Each Nare route [...] patient. Please page the Regional Anesthesia Team ([phone]) with any questions or concerns. ?? Continue current management per primary service. ?? Thank you for the opportunity to have participated in the care of this patient. Julissa Morris MD Regional Team pager [phone] * Camilla Carrera - 06/30/2019 12:02 PM EST Urology Inpatient Progress Note ID: Alize Gramajo is a 58 y.o. female with history of ASCVD (RI with Stent 2007, on plavix), DM2, HTN, [...] rosario food. Resident paged - redirected this screen writer to someone else on urology team. [...] spec had hemolyzed/ Lab contacted by this screen writer at 2145 and new specimen has [...] 58 y.o. female with history of ASCVD (RI with Stent 2007, on plavix), DM2, HTN, [...] Alize Gramajo 58 y.o. 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 Atherosclerosis of [place] coronary artery of [place] heart with angina pectoris 10/09/2007 History of [...] 4 ??? fluticasone propionate (FLONASE) 50 mcg/actuation Davis, Suspension 50 sprays by Each Nare route [...] Medina MD - 07/01/2019 3:45 PM EST [facility] Operative Note Patient Name: Alize Gramajo : [id number] MR#: [id number] Case Date: 06/28/2019 Surgeon: Surgeon(s) and Role: * Avila Medina MD - Primary * Juanpablo Helm MD - Resident Registered Nurse Agricultural Service Worker: Felisha Sher RN Preoperative diagnosis: renal mass [...] Info Order Time SPECIMEN TO PATHOLOGY [id number] [id number] renal mass Left renal mass and fat [...] additional robotic ports were placed and an study assistant port, air seal was placed. Using sharp [...] entire procedure * Initial Assessments - Rani Eamnuel RN - 07/01/2019 9:32 AM EST Office [...] Admission order reviewed. Primary Insurance on file: [employer] Secondary Insurance on file: N/A Primary care provider on file: Luis E Narayan MD [phone] Advance Directive on file and Code Status: <no information>, Full Code Patient???s Functional Status: Independent using front wheel walker Living Situation: Home with support of family and friends [address] [facility] [phone] Supports:Family and friends Assessment: Patient with no apparent RNCM/SW needs at this time. No housing, transportation, insurance, resources concerns identified at this time. Supports in place to achieve a safe post-hospital transition. No identified barriers to accessing necessary care and/or follow-up after discharge. Plan: Patient to d/c to Home via car when medically ready. basting marker/Ditch Rider will continue to follow patient???s progress and remain available if situation changes for coordination of care, psychosocial support and/or discharge planning. Rani Emanuel RN Pager [phone] * Plan of Care - Allison Sánchez [...] meal coverage, correction doses administered/or held per [facility] order parameters in place. HR regular, lung [...] Pain was not well controlled through midday, 6-10/10 pain in the neck/back/L flank, multiple pharmacologic [...] Participants patient;nursing;physician * Plan of Care - Alize Bernard RN - 06/29/2019 12:34 AM EST [...] PM EST Brief Operative Note Patient Name: Alizereinaldo Gramajo : [id number] MR#: [id number] Case Date: 06/28/2019 Surgeon: Surgeon(s) and Role: [...] Info Order Time SPECIMEN TO PATHOLOGY [id number] [id number] renal mass Left renal mass and fat excision 06/28/2019 12:59 PM Time specimen removed from patient: 12:57 PM Number of tissue samples (in container) 1 Fluids: Intraprocedure Crystalloid Total None Fluids: ANES IntraOp Crystalloid (Filter: (AN Fluids) Medications Shown) Medication Calculated Total No medications were administered. Blood: none Urine Output: 500 mL Drains: 16 Fr Bergman in Bladder; 19 Fr Dima Drain in [...] at [facility] [address] [place] [phone] Denisse Hardwick, [facility] 03/20/2024 2:00 PM EDT Clinical Support [facility] [address] [place] [phone] Julia Low, [facility] 05/01/2024 11:20 AM EDT Appointment Mammography/[place] [address] Rodney Padilla MD [address] [facility]IC[facility] [place], [place] [phone] 05/01/2024 1:45 PM EDT Office [place] [address] Juanpablo Hernandez MD [facility] [place] [address] 01/30/2025 1:30 PM EDT Appointment Hematology [place] [address] 01/30/2025 3:[address] [place] [address] Arturo Cordero MD [facility] [address] [place] [address] 01/30/2025 4:15 PM EDT Office Visit [place]ematology [place] [address] Arturo Cordero MD [facility] DR [place] [address] documented as of this encounter Procedures Procedure [...] AM EST Renal mass Lap, Partial Nephrectomy (64287) 06/28/2019 8:39 AM EST Renal mass POCT GLUCOSE Routine 06/28/2019 8:17 AM EST documented in this encounter Results * Basic Metabolic Panel (non-fasting) (07/17/2019 9:47 AM EST) Glucose 131 65 - 199 mg/dL [facility] Comment:Diabetes: >=200 mg/d L plus symptoms Blood Urea Nitrogen 17 8 - 18 mg/dL [facility] Creatinine 0.84 0.70 - 1.20 mg/dL [facility] Sodium 140 135 - 145 mmol/L [facility] Potassium 4.5 3.5 - 5.0 mmol/L [facility] Comment: Please note: ??Patients with WBC >100,000 may have falsely elevated Potassium levels. ??For accurate Potassium quantification in these patients send serum separator tube (gold top) for subsequent determinations. ??Contact the Clinical Chemistry Laboratory if there are any questions. Chloride 102 98 - 107 mmol/L [facility] Carbon Dioxide 28 22 - 31 mmol/L [facility] Anion Gap 10 5 - 15 mmol/L [facility] Calcium 10.1 8.5 - 10.5 mg/dL [facility] Est Glomerular Filtration Rate 76 >=60 mL/min/1. 73 m?? [facility] Comment: The eGFR was calculated using the CKD-EPI equation. As with all creatinine based estimates of kidney function, eGFR values calculated with the CKD-EPI equation are not accurate in patients with acute kidney failure, extremes of body mass or the acutely ill. http://[employer]/[facility] eGFR 88 >=60 mL/min/1. 73 m?? [facility] Comment: The eGFR was calculated using the CKD-EPI equation. As with all creatinine based estimates of kidney function, eGFR values calculated with the CKD-EPI equation are not accurate in patients with acute kidney failure, extremes of body mass or the acutely ill. http://[employer]/[facility] Blood specimen (specimen) 07/17/2019 9:47 AM EST 07/17/2019 9:56 AM EST Narrative Resulting Agency Comment Spec In Lab Avila Medina MD CHEMISTRY ORDERABLES [facility] [place] [address] * POCT Glucose (07/01/2019 12:01 PM EST) Glucose, POC 124 65 - 199 mg/dL [facility] Comment: Supplemental ranges: <140 mg/dL before meals <180 mg/dL all other times of the day Blood specimen (specimen) 07/01/2019 12:01 PM EST 07/01/2019 12:01 PM EST Avila Medina MD POINT OF CARE TEST O RDERABLES Performing Organization Address [facility] Co de Phone Number [facility] [place] [address] * POCT Glucose (07/01/2019 7:28 AM EST) Glucose, POC 123 65 - 199 mg/dL [facility] Comment: Supplemental ranges: <140 mg/dL before meals <180 mg/dL all other times of the day Blood specimen (specimen) 07/01/2019 7:28 AM EST 07/01/2019 7:28 AM EST Avila Medina MD POINT OF CARE TEST O RDERACELY Performing Organization Address [facility] Co de Phone Number [facility] [place] [address] * POCT Glucose (06/30/2019 7:41 PM EST) Glucose, POC 120 65 - 199 mg/dL [facility] Comment: Supplemental ranges: <140 mg/dL before meals <180 mg/dL all other times of the day Blood specimen (specimen) 06/30/2019 7:41 PM EST 06/30/2019 7:41 PM EST Avila Medina MD POINT OF CARE TEST O RDERABLES Performing Organization Address City/[facility]/ZIP Co de Phone Number [facility] [place] [address] * POCT Glucose (06/30/2019 3:15 PM EST) Glucose, POC 131 65 - 199 mg/dL [facility] Comment: Supplemental ranges: <140 mg/dL before meals <180 mg/dL all other times of the day Blood specimen (specimen) 06/30/2019 3:15 PM EST 06/30/2019 3:15 PM EST Avila Medina MD POINT OF CARE TEST O RDERACELY Performing Organization Address City/[facility]/ZIP Co de Phone Number [facility] [place] [address] * POCT Glucose (06/30/2019 11:52 AM EST) Glucose, POC 146 65 - 199 mg/dL [facility] Comment: Supplemental ranges: <140 mg/dL before meals <180 mg/dL all other times of the day Blood specimen (specimen) 06/30/2019 11:52 AM EST 06/30/2019 11:52 AM EST Avila Medina MD POINT OF CARE TEST O RDERACELY Performing Organization Address City/[facility]/ZIP Co de Phone Number [facility] [place] [address] * POCT Glucose (06/30/2019 7:48 AM EST) Glucose, POC 131 65 - 199 mg/dL [facility] Comment: Supplemental ranges: <140 mg/dL before meals <180 mg/dL all other times of the day Blood specimen (specimen) 06/30/2019 7:48 AM EST 06/30/2019 7:48 AM EST Avila Medina MD POINT OF CARE TEST O RDERACELY [facility] [place] [address] * POCT Glucose (06/30/2019 3:26 AM EST) Glucose, POC 124 65 - 199 mg/dL [facility] Comment: Supplemental ranges: <140 mg/dL before meals <180 mg/dL all other times of the day Blood specimen (specimen) 06/30/2019 3:26 AM EST 06/30/2019 3:26 AM EST Avila Medina MD POINT OF CARE TEST O ULISES [facility] [place] [address] * POCT Glucose (06/29/2019 11:36 PM EST) Glucose, POC 153 65 - 199 mg/dL [facility] Comment: Supplemental ranges: <140 mg/dL before meals <180 mg/dL all other times of the day Blood specimen (specimen) 06/29/2019 11:36 PM EST 06/29/2019 11:36 PM EST Avila Medina MD POINT OF CARE TEST Junior MONTGOMERY Performing Organization Address City/[facility]/ZIP Co de Phone Number [facility] [place] [address] * POCT Glucose (06/29/2019 3:36 PM EST) Glucose, POC 177 65 - 199 mg/dL [facility] Comment: Supplemental ranges: <140 mg/dL before meals <180 mg/dL all other times of the day Blood specimen (specimen) 06/29/2019 3:36 PM EST 06/29/2019 3:36 PM EST Avila Medina MD POINT OF CARE TEST O ULISES [facility] [place] [address] * POCT Glucose (06/29/2019 12:03 PM EST) Glucose, POC 138 65 - 199 mg/dL [facility] Comment: Supplemental ranges: <140 mg/dL before meals <180 mg/dL all other times of the day Blood specimen (specimen) 06/29/2019 12:03 PM EST 06/29/2019 12:03 PM EST Avila Medina MD POINT OF CARE TEST O ULISES Performing Organization Address [facility] Co de Phone Number [facility] [place] [address] * Creatinine Level Body Fluid YANDY Drain (06/29/2019 10:29 AM EST) Creatinine, Fluid 0.8 mg/dL [facility] Comment: No reference range is available for the specimen type submitted. ??The performance of this assay for the submitted type has not been validated and results should be interpreted accordingly and with regard to the patient's clinical status. Creat, Fld Type YANDY Drain [facility] YANDY Drain 06/29/2019 10:2 9 AM EST 06/29/2019 11:00 AM EST Narrative Resulting Agency Comment Spec In Lab Avila Medina MD BODY FLUIDS AND STOO LS ORDERABLES Performing Organization Address [facility] de Phone Number [facility] [place] [address] * POCT Glucose (06/29/2019 6:53 AM EST) Glucose, POC 129 65 - 199 mg/dL [facility] Comment: Supplemental ranges: <140 mg/dL before meals <180 mg/dL all other times of the day Blood specimen (specimen) 06/29/2019 6:53 AM EST 06/29/2019 6:53 AM EST Avila Medina MD POINT OF CARE TEST O ULISES Performing Organization Address [facility] Co de Phone Number [facility] [place] [address] * (ABNORMAL) Differential, Automated (06/29/2019 2:57 AM EST) Neutrophil % 73.6 % [facility] Neutrophil Absolute 7.96(H) 1.70 - 6.10 x10(3)/[facility] Lymph % 15.1 % [facility] Lymphocytes Abs 1.6 0.9 - 3.2 x10(3)/[facility] Monocyte % 9.2 % [facility] Monocyte Abs 1.0(H) 0.3 - 0.9 x10(3)/[facility] Eos % 1.2 % [facility] Eosinophils Abs 0.1 0.0 - 0.4 x10(3)/[facility] Basophil % 0.4 % [facility] Baso Absolute 0.0 0.0 - 0.1 x10(3)/[facility] Immature Gran % 0.50 % [facility] Comment: Immature granulocytes(IG's)percentage and absolute count will include metamyelocytes, myelocytes, and promyelocytes. Blood smears from CBCs yielding IG's will be scanned manually for concordance. If this scan disagrees with the automated IG or if promyelocytes are noted, a manual differential will be performed. Immature Gran Absolute 0.05(H) 0.00 - 0.04 x10(3)/[facility] Blood specimen (specimen) 06/29/2019 2:57 AM EST 06/29/2019 3:03 AM EST Narrative Resulting Agency Comment Spec In Lab Camilla Carrera MD HEMATOLOGY ORDERABLE S [facility] [place] [address] * (ABNORMAL) Hemogram (06/29/2019 2:57 AM EST) Pathologist [facility] White Blood Cell 10.8(H) 4.0 - 9.5 x10(3)/ L [facility] Red Blood Cell 4.17 4.00 - 5.21 x10(6)/mc L [facility] Hemoglobin 11.9 11.7 - 15.5 gm/dL [facility] Hematocrit 37.3 35.7 - 45.8 % [facility] Mean Cell Volume 89.4 82.6 - 94.4 fL [facility] Mean Cell Hemoglobin 28.5 27.1 - 32.0 pg [facility] Mean Cell Hemoglobin Concentration 31.9 31.7 - 35.0 gm/dL [facility] Platelet 277 145 - 357 x10(3)/ L [facility] RDW Standard Deviation 47.2(H) 37.0 - 46.0 [facility] RDW coefficient of variation 14.4(H) 11.5 - 14.1 % [facility] Mean Platelet Volume 9.4 7.6 - 12.9 [facility] NRBC% auto 0.0 % [facility] NRBC Absolute 0.000 0.000 - 0.000 x10(3)/[facility] Blood specimen (specimen) 06/29/2019 2:57 AM EST 06/29/2019 3:03 AM EST Narrative Resulting Agency Comment Spec In Lab Camilla Carrera MD HEMATOLOGY ORDERABLE S [facility] [place] [address] * (ABNORMAL) BMP w/fasting Glucose (06/29/2019 2:57 AM EST) Glucose Fasting 116(H) 65 - 99 mg/dL [facility] Comment: ?Fasting* Glucose Interpretive Criteria Normal [...] of Diabetes Mellitus, Position Statement from the [place] [employer]. ??Diabetes Care, Volume 33, Supplement 1, Jul 2009 Blood Urea Nitrogen 10 8 - 18 mg/dL [facility] Creatinine 0.82 0.70 - 1.20 mg/dL [facility] Sodium 144 135 - 145 mmol/L [facility] Potassium 4.2 3.5 - 5.0 mmol/L [facility] Comment: Please note: ??Patients with WBC >100,000 may have falsely elevated Potassium levels. ??For accurate Potassium quantification in these patients send serum separator tube (gold top) for subsequent determinations. ??Contact the Clinical Chemistry Laboratory if there are any questions. Chloride 107 98 - 107 mmol/L [facility] Carbon Dioxide 26 22 - 31 mmol/L [facility] Anion Gap 11 5 - 15 mmol/L [facility] Calcium 8.9 8.5 - 10.5 mg/dL [facility] Est Glomerular Filtration Rate 78 >=60 mL/min/1. 73 m?? [facility] Comment: The eGFR was calculated using the CKD-EPI equation. As with all creatinine based estimates of kidney function, eGFR values calculated with the CKD-EPI equation are not accurate in patients with acute kidney failure, extremes of body mass or the acutely ill. http://[employer] eGFR 91 >=60 mL/min/1. 73 m?? [facility] Comment: The eGFR was calculated using the CKD-EPI equation. As with all creatinine based estimates of kidney function, eGFR values calculated with the CKD-EPI equation are not accurate in patients with acute kidney failure, extremes of body mass or the acutely ill. http://[employer]/[facility]kf Blood specimen (specimen) 06/29/2019 2:57 AM EST 06/29/2019 3:03 AM EST Narrative Resulting Agency Comment Spec In Lab Avila Medina MD CHEMISTRY ORDERABLES Performing Organization Address [facility] Co de Phone Number [facility] [place] [address] * POCT Glucose (06/28/2019 9:57 PM EST) Glucose, POC 148 65 - 199 mg/dL [facility] Comment: Supplemental ranges: <140 mg/dL before meals <180 mg/dL all other times of the day Blood specimen (specimen) 06/28/2019 9:57 PM EST 06/28/2019 9:57 PM EST Avila Medina MD POINT OF CARE TEST O RDERABLES Performing Organization Address [facility] Phone Number [facility] [place] [address] * Creatinine Level Body Fluid YANDY Drain (06/28/2019 9:49 PM EST) Creatinine, Fluid 1.0 mg/dL [facility] Comment: No reference range is available for the specimen type submitted. ??The performance of this assay for the submitted type has not been validated and results should be interpreted accordingly and with regard to the patient's clinical status. Creat, Fld Type YANDY Drain [facility] YANDY Drain 06/28/2019 9:49 PM EST 06/28/2019 10:09 PM EST Narrative Resulting Agency Comment Spec In Lab Avila Medina MD BODY FLUIDS AND STOO LS ORDERABLES Performing Organization Address [facility] de Phone Number [facility] [place] [address] * POCT Glucose (06/28/2019 4:13 PM EST) Glucose, POC 116 65 - 199 mg/dL [facility] Comment: Supplemental ranges: <140 mg/dL before meals <180 mg/dL all other times of the day Blood specimen (specimen) 06/28/2019 4:13 PM EST 06/28/2019 4:13 PM EST Avila Medina MD POINT OF CARE TEST O RDERABLES [facility] [place] [address] * (ABNORMAL) BMP w/fasting Glucose (06/28/2019 2:30 PM EST) Glucose Fasting 147(H) 65 - 99 mg/dL [facility] Comment: ?Fasting* Glucose Interpretive Criteria Normal [...] of Diabetes Mellitus, Position Statement from the [place] [employer]. ??Diabetes Care, Volume 33, Supplement 1, Jul 2009 Blood Urea Nitrogen 10 8 - 18 mg/dL [facility] Creatinine 0.80 0.70 - 1.20 mg/dL [facility] Sodium 144 135 - 145 mmol/L [facility] Potassium 4.3 3.5 - 5.0 mmol/L [facility] Comment: Please note: ??Patients with WBC >100,000 may have falsely elevated Potassium levels. ??For accurate Potassium quantification in these patients send serum separator tube (gold top) for subsequent determinations. ??Contact the Clinical Chemistry Laboratory if there are any questions. Chloride 108(H) 98 - 107 mmol/L [facility] Carbon Dioxide 25 22 - 31 mmol/L [facility] Anion Gap 11 5 - 15 mmol/L [facility] Calcium 8.9 8.5 - 10.5 mg/dL [facility] Est Glomerular Filtration Rate 81 >=60 mL/min/1. 73 m?? [facility] Comment: The eGFR was calculated using the CKD-EPI equation. As with all creatinine based estimates of kidney function, eGFR values calculated with the CKD-EPI equation are not accurate in patients with acute kidney failure, extremes of body mass or the acutely ill. http://[employer]/DHnkf eGFR 94 >=60 mL/min/1. 73 m?? [facility] Comment: The eGFR was calculated using the CKD-EPI equation. As with all creatinine based estimates of kidney function, eGFR values calculated with the CKD-EPI equation are not accurate in patients with acute kidney failure, extremes of body mass or the acutely ill. http://[employer]/[facility]ALOnkf Blood specimen (specimen) 06/28/2019 2:30 PM EST 06/28/2019 2:59 PM EST Narrative Resulting Agency Comment Spec In Lab Avila Medina MD CHEMISTRY ORDERABLES Performing Organization Address [facility] Co de Phone Number [facility] [place] [address] * Hemoglobin and Hematocrit, blood (06/28/2019 2:30 PM EST) Hemoglobin 12.5 11.7 - 15.5 gm/dL [facility] Hematocrit 37.8 35.7 - 45.8 % [facility] Blood specimen (specimen) 06/28/2019 2:30 PM EST 06/28/2019 2:59 PM EST Narrative Resulting Agency Comment Spec In Lab Avila Medina MD HEMATOLOGY ORDERABLE S Performing Organization Address City/[facility]/ZIP Co de Phone Number [facility] [place] [address] * POCT Glucose (06/28/2019 2:05 PM EST) Glucose, POC 133 65 - 199 mg/dL [facility] Comment: Supplemental ranges: <140 mg/dL before meals <180 mg/dL all other times of the day Blood specimen (specimen) 06/28/2019 2:05 PM EST 06/28/2019 2:05 PM EST Avila Medina MD POINT OF CARE TEST O ULISES Performing Organization Address [facility] Co de Phone Number [facility] [place] [address] * Specimen to Pathology (06/28/2019 12:59 PM EST) AP Specimen 06/28/2019 12:5 9 PM EST 06/28/2019 12:59 PM EST Narrative [facility] - 06/28/2019 12:59 PM EST Specimen requisition ordered. ??Separate Pathology report to follow Avila Medina MD PATHOLOGY/CYTOLOGY O ULISES Performing Organization Address [facility] de Phone Number [facility] [place] [address] * Solid Tumor NGS Panel (06/28/2019 12:57 PM EST) Tissue specimen (specimen) 06/28/2019 12:57 PM EST 05/28/2020 1:28 PM EST Narrative Resulting Agency Comment Spec In Lab Avila Medina MD PATHOLOGY/CYTOLOGY O ULISES Performing Organization Address [facility] Co de Phone Number [facility] [place] [address] * Surgical Pathology Report (06/28/2019 12:57 PM EST) Final Diagnosis [id number] ? Location: 4WST; 0424; A The signing pathologist has (i) examined [...] ?? A4 Normal Block(s): ?? 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 ??- Margins negative for carcinoma. ??- See synoptic report for additional details and staging. Electronically signed by: ??Christine Pierce MD Verified: ??07/04/2019 ?Pathologist Performed at: ??-[facility] Dept. of Pathology, [place], [place] DISCUSSION Whole slide scan: [id number] A6-1 CLINICAL INFORMATION Specimen Submitted: A - [...] Inking: Parenchymal margin inked black. Sections/Processi ng: Vaccine Key Customer Leader sections in 10 cassettes as follows: ?A1-A5: ??Tumor to closest margin ?A6: ??Tumor to fat ?A7-A8: ??Additional territory service representative tumor ?A9: ??Lesion to normal kidney ?A10: ??Normal kidney ??[facility] 07/04/2019 11:12 AM EST [facility] SPECIMEN FROM KIDNEY / Unknown 06/28/2019 12:57 PM EST 06/28/2019 12:57 PM EST Avila Medina MD PATHOLOGY/CYTOLOGY O RDERABLES [facility] [place] [address] * (ABNORMAL) BLOOD GAS 2 ARTERIAL (06/28/2019 11:13 AM EST) pH, Arterial 7.33(L) 7.35 - 7.45 [facility] PCO2, Arterial 51(H) 35 - 45 mmHg [facility] PO2, Arterial 198(H) 85 - 104 mmHg [facility] Bicarbonate, Arterial 26.8(H) 20.0 - 26.0 mmol/L [facility] Base Excess, Arterial 0.4 -3.0 - 3.0 mmol/L [facility] Hgb Blood Gas 13.4 11.7 - 15.5 gm/dL [facility] Oxyhemoglobin, Arterial 94.2 94.0 - 97.0 % [facility] Carboxyhemoglob in, Arterial 4.6 % [facility] Comment: Nonsmokers: 0.5-1.5% COHB Smokers: Variable, but usually less than 10% Toxic: 20-30% COHB Lethal: Greater than 60% COHB Methemoglobin, Arterial 0.3 <=1.5 % [facility] Na Whole Blood 140 135 - 145 mmol/L [facility] K Whole Blood 4.1 3.5 - 5.0 mmol/L [facility] Comment: Please note: Patients with WBC >100,000 may have falsely elevated Potassium levels. Contact the Clinical Chemistry Laboratory if there are any questions. ICa Whole Blood 1.18 1.15 - 1.33 mmol/L [facility] Comment: Note: ??Total bilirubin higher than 20 mg/dL may lead to falsely low ionized calcium. CL Whole Blood 108(H) 98 - 107 mmol/L [facility] Gluc Whole Bld 160 65 - 199 mg/dL [facility] Comment:Diabetes: >=200 mg/d L plus symptoms. Lactate WB 1.3 0.5 - 2.2 mmol/L [facility] FIO2 Art 56 % [facility] PF Ratio Art 354 [facility] Temp Art 35.3 Celsius [facility] Blood specimen (specimen) 06/28/2019 11:13 AM EST 06/28/2019 11:13 AM EST Avila Medina MD POINT OF CARE TEST O RDERABLES [facility] [place] [address] * POCT Glucose (06/28/2019 8:17 AM EST) Glucose, POC 146 65 - 199 mg/dL [facility] Comment: Supplemental ranges: <140 mg/dL before meals <180 mg/dL all other times of the day Blood specimen (specimen) 06/28/2019 8:17 AM EST 06/28/2019 8:17 AM EST Avila Medina MD POINT OF CARE TEST O RDERABLES [facility] [place] [address] documented in this encounter Visit Diagnoses Diagnosis Renal mass, left Unspecified disorder of kidney and ureter Renal mass, left Unspecified disorder of kidney [...] PRN, Starting on Mon06/30/19 at 0919, Until Mon07/01/19 at 1846, Muscle spasms, Routine Given 07/01/2019 [...] SCHEDULED, First dose (after last reorder) on 06/29/19 at 2200, Until Discontinued, Routine Given 07/01/2019 [...] Provider: Nelson Tomlinson RN)1239 (Given - Provider: Alliosn Sánchez RN)1740 (Given - Provider: Allison Sánchez RN)2340 (Given - Provider: Nelson Tomlinson RN) 0531 (Given - Provider: Nelson Tomlinson RN)1237 (Given - Provider: Yue Moore RN) amLODIPine (Norvasc) tablet 5 mg 5 mg, Oral, DAILY, First dose on Mon06/29/19 at 0900, Until Discontinued, Routine 1008 (Given - Provider: Christine Wu RN) 0809 (Given - Provider: Allison Sánchez RN) 09 (Given - Provider: Yue Moore RN) aspirin EC tablet 81 mg 81 mg, Oral, DAILY, First dose on Mon06/29/19 at 0900, Until Discontinued, Routine 1009 (Given [...] Tomlinson RN) 0933 (Given - Provider: Yue Mooer RN) docusate sodium (Colace) capsule 100 mg [...] Nelson Tomlinson, VEDA)1344 (Given - Provider: Allison Sánchez, VEDA)2110 (Given - Provider: Nelson Tomlinson, VEDA) 0532 (Given - Provider: Nelson Tomlinson, VEDA)1429 [...] eat d/t nausea)1359 (Given - Provider: Christine Wu RN)1930 (Given - Provider: Allison Sánchez RN - Comment: -pt's dinner tray arrived late, pt just finished eating) 0819 (Given - Provider: Allison Sánchez RN)1240 (Given - Provider: Allison Sánchez, VEDA)1610 (Given - Provider: Allison Sánchez, VEDA) 0925 (Given - Provider: Yue Moore, VEDA)1238 (Given - Provider: Yue Moore, VEDA) insulin lispro (HumaLOG) VIAL injection 1-5 Units(Linked [...] 0922 (Given - Provider: Yue Moore RN) losartan (Cozaar) tablet 100 mg 100 mg, Oral, DAILY, First dose on 06/29/19 at 0900, Until Discontinued, Routine 1012 (Given - Provider: Christine Wu RN) 0809 (Given - Provider: Allison Sánchez RN) 0922 (Given - Provider: Yue Moore RN) methyl salicylate-menthol (BENGAY) 15-10 % cream 1 each 1 each, Topical (Top), 2 TIMES DAILY, First dose on 06/29/19 at 2300, Until Discontinued 233 (Given - Provider: Nelson Tomlinson RN - Comment: L/R neck & shoulders) 08 (Given - Provider: Allison Sánchez RN)2013 (Given [...] Christine Wu RN - Reason: Patient/family refused) 08 (Patch Applied - Provider: Allison Sánchez RN) [...] VEDA)2139 (Given - Provider: Nelson Tomlinson, VEDA) 08 (Given - Provider: Allison Sánchez, VEDA)2011 (Given - Provider: Nelson Tomlinson, VEDA) 0930 (Given - Provider: Yue Moore RN) traZODone (Desyrel) tablet 100 mg 100 mg, Oral, NIGHTLY, First dose on Mon06/28/19 at 2100, Until Discontinued, Routine 2139 (Given - Provider: Nelson Tomlinson RN) 2011 [...] nebulizer? Yes 1812 (Given - Provider: Carlota Rocha RN) cyclobenzaprine (Flexeril) tablet 5 mg 5 mg, Oral, 3 TIMES DAILY PRN, Starting on Mon06/30/19 at 0919, Until Mon07/01/19 at 1846, Muscle spasms, Routine 0947 (Given - Provider: Allison Sánchez, VEDA)1938 (Given - Provider: Nelson Tomlinson RN - [...] Until Mon07/01/19 at 1846, Rhinitis, Allergies, Routine 1812 (Given - Provider: Carlota Rocha RN) 0948 (Given - Provider: Allison Sánchez RN) glucagon (human recombinant) injection SolR 1 mg(Linked [...] Alize Bernard RN)1103 (Given - Provider: Christine Wu RN)1512 (Given - Provider: Christine Wu, VEDA)2146 (Given - Provider: Nelson Tomlinson, VEDA) 0809 (Given - Provider: Allison Sánchez RN)1240 (Given - Provider: Allison Sánchez RN)1641 (Given - Provider: Allison Sánchez, VEDA) 0002 [...] Unit) 1057 (Given - Provider: Christine Wu, VEDA)2145 (See Alternative - Provider: Nelson Tomlinson, VEDA) [...] Routine 1057 (See Alternative - Provider: Christine Wu RN)2145 (Given - Provider: Nelson Tomlinson, VEDA) 1240 [...] constipation., Routine 0531 (Given - Provider: Nelson Tomlinson, VEDA) prochlorperazine (COMPAZINE) injection 10 mg(Linked Group 7) [...] on Mon06/28/19 at 1500, Until 07/01/19 at 0849, Pain, for severe pain (7-10), [...] documented in this encounter Care Teams Senior Logistics Manager Relationship Specialty Start Date End Date Luis E Narayan MD [facility] [address] [place] [address] PCP - General Family Medicine 03/26/19 01/19/22 documented as of this encounter
--- OUTSIDE RECORDS SUMMARY | 2024-03-04 21:28 | XMS_ITS | Encounter Summary ---
[place] [address] Care Team Providers Care Assistant Site Manager Name Role Phone Luis E Narayan MD Primary Care Provider [phone]- [phone] Reason for Visit * Reason Onset Date Comments Referral 06/03/2019 Encounter Details Date Type Department Care Team (Late st Contact Info) Description 06/03/2019 Telephone Family Medicine at [facility] [address] [place] [address] Yue Kwok Referral Social History Tobacco Use Types Packs/Day Years [...] encounter Miscellaneous Notes * Telephone Encounter - Yue Almonte - 06/03/2019 11:58 AM EST Saida, PCP is requesting phone calls for this patient's Erosion Control Coordinator Pharmacist referral. documented in this encounter Plan of Treatment Upcoming Encounters Date Type Department Care Team (Late st Contact Info) Description 03/20/2024 9:00 AM EDT TH Visit (TeleHealth) Sleep Center at [facility] [address] [place] [address] Denisse Hardwick, [facility] 03/20/2024 2:00 PM EDT Clinical Support Family Medicine at [facility] [address] [place] [phone] Julia Low, [facility] 05/01/2024 11:20 AM EDT Appointment Mammography/[place] [address] Rodney Padilla MD [address] [place] [address] 05/01/2024 1:45 PM EDT [place] [address] Juanpablo Hernandez MD [facility] [place] [address] 01/30/2025 1:30 PM EDT Appointment Hematology [place] [address] 01/30/2025 3:[address] Scan at [place] [phone] Arturo Cordero MD [facility] [place] [address] 01/30/2025 4:15 PM EDT Office Visit Hematology [place] [address] Arturo Cordero MD [facility] [place] [address] documented as of this encounter Visit Diagnoses Not on filedocumented in this encounter Care Teams Assistant Site Manager Relationship Specialty Start Date End Date Luis E Narayan MD [facility] [address] [place], [place] [id number] PCP - General Family Medicine 03/26/19 01/19/22 documented as of this encounter
--- OUTSIDE RECORDS SUMMARY | 2024-03-04 21:28 | XMS_ITS | Encounter Summary ---
Author Organization [facility] Address [facility] [place] [address] Care Team Providers Care Language Asst Name Role Phone Luis E Narayan MD Primary Care Provider Encounter Details Date Type Department Care Team (Latest Contact Info) Description 06/27/2019 1:06 PM EST - 06/27/2019 11:59 PM [facility] Hospital Encounter XRay at [address] [place] [address] Avila Medina MD [facility] [place] [address] Renal mass Discharge Disposition: Home Social History Tobacco Use [...] 04/09/2019 06/22/2020 fluticasone propionate (FLONASE) 50 mcg/actuation [place], Suspension 50 sprays by Each Nare route [...] Center at [facility] [address] [place] [address] Denisse Hardwick, LABORER CONSTRUCTION OR [facility] 03/20/2024 2:00 PM EDT Clinical Support Family Medicine at [facility] [address] [place] [address] Julia Low, [facility] 05/01/2024 11:20 AM EDT Appointment Mammography/[place] [phone] Rodney Padilla MD [address] [facility] [place], [place] [id number] 05/01/2024 1:45 PM EDT Office [place] [phone] Juanpablo Hernandez MD [facility] [place] [place] [address] 01/30/2025 1:30 PM EDT Appointment Hematology [place] [address] 01/30/2025 3:[address] [place] [address] Arturo Cordero MD [facility] [place] [address] 01/30/2025 4:15 PM EDT Office Visit Hematology [place] [address] Arturo Cordero MD [facility] [place] [address] documented as of this encounter Procedures Procedure Name Priority Date/Time Associated Diagnosis Comments XR CHEST PA AND LATERAL Routine 06/27/2019 1:12 PM EST Renal mass documented in this encounter Results * XR Chest PA & Lateral (Generic) (06/27/2019 1:12 PM EST) Anatomical Region Laterality Modality Chest N/A Digital Radiogra phy Impressions 06/27/2019 1:37 PM EST No new pulmonary nodules identified. Thank you for letting us participate in the care of this patient. For questions regarding this report, please contact the number below. ? Narrative 06/27/2019 1:37 PM EST EXAMINATION: XR CHEST PA AND LATERAL (GENERIC) CLINICAL HISTORY: Renal mass ? new lung noduels TECHNIQUE: PA and lateral views of the chest. COMPARISON: 01/22/2019. FINDINGS: The lungs appear clear. The cardiomediastinal silhouette is unchanged. The bess, pulmonary vessels, and pleura are within normal limits. No significant osseous findings are seen. Procedure Note Chantal Ley MD - 06/27/2019 EXAMINATION: XR CHEST PA AND LATERAL (GENERIC) CLINICAL HISTORY: Renal mass ? new lung noduels TECHNIQUE: PA and lateral views of the chest. COMPARISON: 01/22/2019. FINDINGS: The lungs appear clear. The cardiomediastinal silhouette isunchanged. The bess, pulmonary vessels, and pleura are within normal limits. Nosignificant osseous findings are seen. IMPRESSION No new pulmonary nodules identified. Thank you for letting us participate in the care of this patient. Forquestions regarding this report, please contact the number below. Avila Medina MD IMG DX ORDERABLES documented in this encounter Visit Diagnoses Diagnosis Renal mass Unspecified disorder of kidney and ureter documented in this encounter Care Teams Language Asst Relationship Specialty Start Date End Date Luis E Narayan MD [facility] [address] [place] [address] PCP - General Family Medicine 03/26/19 01/19/22 documented as of this encounter
--- OUTSIDE RECORDS SUMMARY | 2024-03-04 21:29 | XMS_ITS | Encounter Summary ---
Author Organization [facility] [place] [address] Care Team Providers Care Corn Cutter Operator Name Role Phone Luis E Naaryan MD Primary Care Provider [phone]- [phone] Encounter Details Date Type Department Care Team (Late st Contact Info) Description 05/09/2019 Abstract Internal Medicine at [facility] [address] [place] [phone] Arlnee Palomo, STREETSWEEPER OPERATOR Social History Tobacco Use Types Packs/Day Years [...] [facility] [address] [place] [phone] Denisse Hardwick, WAREHOUSE DISTRIBUTION ASSOCIATE SLEEP CENTER 03/20/2024 2:00 PM EDT Clinical Support Family Medicine at [facility] [address] [place] [phone] Julia Low RPH 05/01/2024 11:20 AM EDT Appointment Mammography/[place] [address] Rodney Padilla MD [address] [place] [address] 05/01/2024 1:45 PM EDT Office Visit Ophthalmology at [place] [address] Juanpablo Hernandez MD [facility] [address] 01/30/2025 1:30 PM EDT Appointment Hematology and Oncology at [place] [address] 01/30/2025 3:[address] Scan [place] [address] Arturo Cordero MD [facility] [address] [place] [address] 01/30/2025 4:15 PM EDT Office Visit Hematology and Oncology at [place] [address] Arturo Cordero MD [facility] [address] [place] [address] documented as of this encounter Visit Diagnoses Not on filedocumented in this encounter Care Teams Corn Cutter Operator Relationship Specialty Start Date End Date Luis E Narayan MD [facility] [place] [address] PCP - General Family Medicine 03/26/19 01/19/22 documented as of this encounter
--- OUTSIDE RECORDS SUMMARY | 2024-03-04 21:29 | XMS_ITS | Encounter Summary ---
Author Organization [facility] [place] [address] Care Team Providers Care Spud Driller Name Role Phone Luis E Narayan MD Primary Care Provider +1- [phone] Encounter Details Date Type Department Care Team (Late st Contact Info) Description 05/03/2019 External [place] [address] Sumit Pineda MD [facility] [place] [address] Social History Tobacco Use Types Packs/Day Years [...] EDT TH Visit (TeleHealth) Sleep Center at [facility] [address] [place] [phone] Denisse Hardwick, HUMAN RESOURCES TECHNICIAN SLEEP CENTER 03/20/2024 2:00 PM EDT Clinical Support Family Medicine at [facility] [address] [place] [phone] Julia Low [facility] 05/01/2024 11:20 AM EDT Appointment Mammography/DXA at [place] [address] Rodney Padilla MD [address] [place] [address] 05/01/2024 1:45 PM EDT Office Visit Ophthalmology at [place] [address] Juanpablo Hernandez MD [facility] [place] [address] 01/30/2025 1:30 PM EDT Appointment Hematology and Oncology at [place] [address] 01/30/2025 3:[address] Scan [place] [address] Arturo Cordero MD [facility] [address] HEMATOLOGY [place] [address] 01/30/2025 4:15 PM EDT Office Visit Hematology and Oncology at [place] [address] Arturo Cordero MD [facility] [address] HEMATOLOGY [place] [address] documented as of this encounter Procedures Procedure Name Priority Date/Time Associated Diagnosis Comments EMG SCAN Routine 05/02/2019 documented in this encounter Results * Scan Doc: EMG (05/02/2019) Sumit Pineda MD MEDIA MGR SCAN EXT O RDR/RSLT documented in this encounter Visit Diagnoses Not on filedocumented in this encounter Care Teams Spud Driller Relationship Specialty Start Date End Date Luis E Narayan MD [facility] [address] [place] [address] PCP - General Family Medicine 03/26/19 01/19/22 documented as of this encounter
--- OUTSIDE RECORDS SUMMARY | 2024-03-04 21:29 | XMS_ITS | Encounter Summary ---
Author Organization [facility] [address] Care Team Providers Care Recreation Therapist Name Role Phone Luis E Narayan MD Primary Care Provider [phone] Encounter Details Date Type Department Care Team (Latest Contact Info) Description 05/27/2019 1:57 PM EST - 05/27/2019 11:59 PM EST Hospital Encounter Mammography/[place] [address] Luis E Narayan MD [facility] [address] Healthcare maintenance Discharge Disposition: Home Social History Tobacco Use [...] Sig Dispensed Refills Start Date End Date clopidogrel (PLAVIX) 75 mg Tablet Take 1 tablet by mouth daily. Restart post-operatively on 07/05 90 tablet 3 07/05/2019 09/14/2020 ondansetron (ZOFRAN) 4 mg Tablet Take 1 tablet by mouth every 8 hours as needed for Nausea. 20 tablet 07/01/2019 12/23/2019 nitroGLYcerin (NITROSTAT) 0.4 mg Tablet, Sublingual Place 1 tablet under the tongue See Admin Instructions. 30 tablet 04/09/2019 07/05/2021 amLODIPine (NORVASC) 5 mg Tablet Take 1 tablet by mouth daily. 90 tablet 4 04/09/2019 05/25/2020 metFORMIN (GLUCOPHAGE) 500 mg Tablet Take 1 tablet by mouth 2 times daily (after meals). 180 tablet 3 04/09/2019 05/29/2019 simvastatin (ZOCOR) 10 mg Tablet Take 1 tablet by mouth daily. 90 tablet 4 04/09/2019 06/22/2020 lamoTRIgine (LAMICTAL) 25 mg Tablet Take 1 tablet by mouth 3 times daily. 90 tablet 3 04/09/2019 06/21/2019 fluticasone propionate (FLONASE) 50 mcg/actuation [place], Suspension 50 sprays by Each Nare route 2 times daily. 16 g 04/09/2019 08/01/2019 loratadine (CLARITIN) 10 mg Tablet Take 1 tablet by mouth daily. 90 tablet 04/09/2019 09/04/2019 budesonide-formoterol (SYMBICORT) 80-4.5 mcg/actuation HFA Aerosol Inhaler Inhale 2 puffs into the lungs 2 times daily. 1 Inhaler 11 04/09/2019 04/19/2020 aspirin (ENTERIC COATED ASPIRIN) 325 mg Tablet, Delayed Release (E.C.) Take 1 tablet by mouth daily. 90 tablet 3 04/09/2019 06/21/2019 clopidogrel (PLAVIX) 75 mg Tablet Take 1 [...] [facility] [address] [place] [phone] Denisse Hardwick, [facility] 03/20/2024 2:00 PM EDT Clinical Support Family Medicine at [facility] [address] [place] [phone] Julia Low, [facility] 05/01/2024 11:20 AM EDT Appointment Mammography/[place] [phone] Rodney Padilla MD [address] [facility] [place], [place] [id number] 05/01/2024 1:45 PM EDT Office [place] [address] Juanpablo Hernandez MD [facility] [place] [address] 01/30/2025 1:30 PM EDT Appointment Hemat[place] [address] 01/30/2025 3:[address] [place] [address] Arturo Cordero MD [facility] [address] HEMAT[place] [address] 01/30/2025 4:15 PM EDT Office Visit Hematology [place] [address] Arturo Cordero MD [facility] DR HEMATOLOGY [place] [address] documented as of this encounter Procedures Procedure Name Priority Date/Time Associated Diagnosis Comments MAMMO SCREENING CAD AND FEROZ BILATERAL Routine 05/27/2019 2:12 PM EST Healthcare maintenance documented in this encounter Results * Mammo Screening Cad and Feroz Bilateral (05/27/2019 2:12 PM EST) Anatomical Region Laterality Modality Breast Bilateral Mammography Narrative 05/28/2019 9:18 AM EST BILATERAL MAMMOGRAPHY REASON FOR EXAM: [...] CONCLUSION: No mammographic evidence of malignancy. RECOMMENDATION: Medical organizations agree that annual screening mammography beginning at age 40 saves the most lives. The risks of screening are negligible compared to dying from breast cancer or suffering from more aggressive treatment required when detected at a later stage. No woman is at low risk for breast cancer. Some women, because of their family history, a genetic tendency, or certain other factors, should be screened with breast MRI along with mammograms. (The number of women who fall into this category is very small). The patient and health care provider should discuss the patient history and decide if earlier screening and breast MRI are appropriate. Screening should continue as long as a woman is in good health and is expected to live 10 years or longer. Screening mammography may not detect 10-15% of breast cancers. Women should report any breast changes to a health care provider right away. A result letter has been sent to this patient by the [facility]. BIRADS CATEGORY 1: NEGATIVE Luis E Narayan MD IMG MAMMO ORDERABLE S documented in this encounter Visit Diagnoses Diagnosis Healthcare maintenance Routine general medical examination at a health care facility documented in this encounter Care Teams Recreation Therapist Relationship Specialty Start Date End Date Luis E Narayan MD [facility] [address] PCP - General Family Medicine 03/26/19 01/19/22 documented as of this encounter
--- OUTSIDE RECORDS SUMMARY | 2024-03-04 21:29 | XMS_ITS | Encounter Summary ---
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 TEACHER 2+ TEST EA ADDL 30 MIN Amy Aguiar MD [facility] [place] [address] [facility] [address] [place] [address] Referral ID Status Reason Start Date Expiration Date V isits Requested Visits Authorized [id number] Consult, Test & Treat 05/02/2019 05/01/2021 1 1 Reason for Visit * Consultation (Urgent) - Closed Specialty Diagnoses / Procedures Referred By Gonzalez kumari Referred To Contact Neurology Diagnoses Generalized weakness Elpidio Pinedo IV, MD [facility] [place] [address] [facility] [address] [place] [phone] Referral ID Status Reason Start Date Expiration Date V isits Requested Visits Authorized [id number] Closed Consult, Test & Treat 03/26/2019 03/25/2020 1 1 Encounter Details Date Type Department Care Team (Late st Contact Info) Description 05/02/2019 9:00 AM EDT Procedure [place] [phone] Sumit Pineda MD [facility] [place] [address] Amy Aguiar MD [facility] [place] [address] Cognitive and behavioral changes Social History Tobacco [...] as of this encounter Progress Notes * Amy Aguiar - 05/02/2019 9:00 AM EDT Neurology Outpatient Clinic - 05/02/2019 Patient name: Alize Gramajo Date of : [...] evaluation for possible multiple sclerosis versus neuropathy. Briefly, patient states about 4 months ago [...] sentences. Patient states she was taken to [facility] and it was initially thought that she is having a clot in her body and thus underwent echocardiograms, ultrasounds of her lower extremities and all were negative. 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 Patient states she [facility] stop steroids and gave her breathing treatments. 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 She states her [...] History: Past Medical History: Diagnosis Date ??? Atherosclerosis of kiowa tribe coronary artery of kiowa tribe heart with angina pectoris 10/09/2007 History of angina status post myocardial infarction October 2007 with stenting x4 ??? CAD (coronary artery disease) October 12, 2007 ??? Depression ??? Diabetes mellitus borderline ??? High blood pressure ??? Hypercholesterolemia ??? Mental status change Past Surgical History: Procedure Laterality Date ??? SECTION ??? CORONARY ANGIOPLASTY WITH STENT PLACEMENT ??? KNEE SURGERY Medications: Current Outpatient Medications on File Prior to Visit Medication Sig Dispense Refill ??? melatonin 5 mg Tablet Take 5 mg by mouth nightly. ??? nitroGLYcerin (NITROSTAT) 0.4 mg Tablet, Sublingual Place 1 tablet under the tongue See Admin Instructions. 30 tablet 0 ??? amLODIPine (NORVASC) 5 mg Tablet Take 1 tablet by mouth daily. 90 tablet 4 ??? metFORMIN (GLUCOPHAGE) 500 mg Tablet Take 1 tablet by mouth 2 times daily (after meals). 180 tablet 3 ??? simvastatin (ZOCOR) 10 mg Tablet Take 1 tablet by mouth daily. 90 tablet 4 ??? lamoTRIgine (LAMICTAL) 25 mg Tablet Take 1 tablet by mouth 3 times daily. 90 tablet 3 ??? fluticasone propionate (FLONASE) 50 mcg/actuation [place], Suspension 50 sprays by Each Nare route 2 times daily. 16 g 0 ??? loratadine (CLARITIN) 10 mg Tablet Take 1 tablet by mouth daily. 90 tablet 0 ??? budesonide-formoterol (SYMBICORT) 80-4.5 mcg/actuation HFA Aerosol Inhaler Inhale 2 puffs into the lungs 2 times daily. 1 Inhaler 11 ??? aspirin (ENTERIC COATED ASPIRIN) 325 mg Tablet, Delayed Release (E.C.) Take 1 tablet by mouth daily. 90 tablet 3 ??? clopidogrel (PLAVIX) 75 mg Tablet Take 1 tablet by mouth daily. 90 tablet 3 ??? metoprolol succinate (TOPROL XL) 25 mg [...] by mouth nightly. 90 tablet 3 ??? amoxicillin-clavulanate (AUGMENTIN) 875-125 mg Tablet Take 1 tablet by mouth 2 times daily. 20 tablet 0 ??? [DISCONTINUED] gabapentin (NEURONTIN) 100 mg capsule Take 100 mg by mouth as needed. Indications: Neuropathic Pain ??? fluticasone-salmeterol (ADVAIR HFA) 115-21 mcg/Actuation inhaler ??? ALBUTEROL SULFATE (PROVENTIL HFA INHL) ??? [DISCONTINUED] LORazepam (ATIVAN) 0.5 mg tablet (Patient taking differently: Take by mouth every 6 hours as needed.) ??? [DISCONTINUED] atorvastatin (LIPITOR) 10 mg tablet 10 MG = 1 Tablet(s), PO, QHS (Patient not taking: No sig reported) No [...] year backwards, mimic interlocking hand gestures MOCA 23 patient had deficits in language, abstraction and delayed recall. Mild dysarthria [...] and lateral aspects of feet Vibration via Targeted Growth tuning fork (1-8): reduced at big toes [...] impacts the left L3 and L4 roots. Assessment / Plan: Alize Gramajo is a [...] performed her MOCA test for cognition and there were noted to be some deficiencies especially in the language part of the test as well as delayed recall. Cognitive changes could be due to nutritional deficiency like B1 versus recent sickness vs stress at home vs neurodegenerative disorder (seems less likely but in differential). Seizure is also on the differential but seems less likely based on presentation. It is prudent to get formal neuro psych eval. 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 She did undergo reversible causes of neuropathy including B12, TSH and they were normal. But HbA1c is quite elevated at 8.0%. Which is most likely etiology of neuropathy. Patient also complains of urinary incontinence and [...] results for below testing all negative. - check B1 for cognitive changes - EEG will be ordered for possibility of seizures causing this cognitive decline - Referral to Neuropsychology testing - Check SPEP for neuropathy. B12 and TSH were normal. HbA1C elevated at Seen with Neurology staff, Dr. Edwin Aguiar MD Clinical Neurophysiology Fellow Pager: [phone] 05/02/2019 CC: Luis E Narayan MD, Luis E Narayan I have seen the patient and reviewed the fellow's above history and I agree with the details as written. The assessment and plan were formulated in discussion with me and I agree with them as documented. Sumit Pineda MD documented in this encounter Plan of Treatment Upcoming Encounters Date Type Department Care Team (Late st Contact Info) Description 03/20/2024 9:00 AM EDT TH Visit (TeleHealth) Sleep Center at [facility] [address] [place] [address] Denisse Hardwick [facility] 03/20/2024 2:00 PM EDT Clinical Support Family Medicine at [facility] [address] [place] [address] Julia Low, [facility] 05/01/2024 11:20 AM EDT Appointment Mammography/[place] [address] Rodney Padilla MD [address] [facility] [place] [id number] 05/01/2024 1:45 PM EDT Office Visit Ophthalmology at [place] [phone] Juanpablo Hernandez MD [facility] [place] [address] 01/30/2025 1:30 PM EDT Appointment Hematology [place] [address] 01/30/2025 3:[address] Scan at [place] [phone] Arturo Cordero MD [facility] DR HEMATOLOGY [place] [address] 01/30/2025 4:15 PM EDT Office Visit Hematology and Oncology at [place] [phone] Arturo Cordero MD [facility] DR HEMATOLOGY [place] [address] Scheduled Referrals Name Type Priority Associated Diagnoses Order Schedule Referral to Neuropsychology Outpatient Referral Routine Cognitive and behavioral changes Ordered: 05/02/2019 documented as of this encounter Results * EEG awake, asleep, drowsy, routine (07/25/2019 3:00 PM EST) Narrative Nigel Garcia MD - 07/25/2019 3:00 PM EST Nigel Garcia MD ? 07/28/2019 10:59 PM [facility] Department of Neurology Outpatient EEG Report Name [...] ? ? fluticasone propionate (FLONASE) 50 mcg/actuation [place], Suspension 50 sprays by Each Nare route [...] channel digitized electroencephalogram was performed in the [facility] Clinical Neurophysiology Laboratory. The 10/20 international system of electrode placement was used and bipolar and referential electrode montages were recorded. ??In addition to EEG the patient was monitored for EKG and lateral/vertical eye movements. Video was recorded during the session. The duration of the recording was 25 minutes. HOBBING PRESS OPERATOR'S REPORT: Performed by: SR Patient was not [...] Nathan Ortiz MD Clinical Neurophysiology Fellow Pager: [phone] 07/26/2019 Neurology Attending I have personally reviewed the EEG, and I agree with the details as written. ?? The above report was formulated in discussion with me at the time of EEG reading, and I agree with it as documented. Nigel Garcia MD [place] [address] Pager: [phone], #[phone] Email: [email or web address] Sumit Pineda MD NEUROLOGY ORDERABLES * Vitamin B1, whole blood (05/02/2019 11:15 AM EDT) [facility] Vit B1 Lvl Wb (NOVEMBER) 173 70 - 180 nmol/L [facility] Comment: ADDITIONAL INFORMATION This test was developed and its performance characteristics determined by [facility] in a manner consistent with CLIA requirements. This test has not been cleared or approved by the U.S. Food and Drug Administration. Test Performed by: [facility] [place] [address] Plant Operator/Shift Supervisor: Jose G Jefferson M.D. Ph.D.; CLIA# [id number] Blood specimen (specimen) 05/02/2019 11:15 AM EDT 05/02/2019 1:43 PM EDT Narrative Resulting Agency Comment Spec In Lab Sumit Pineda MD LAB SEND OUT ORDERAB LES [facility] [place] [place] [address] * Protein Electrophoresis, serum (05/02/2019 11:15 AM EDT) [facility] Total Prot Electrophoresis 6.5 6.1 - 8.0 gm/dL [facility] Albumin Electrophoresis 4.17 3.60 - 6.00 gm/dL [facility] Alpha 1 Globulin 0.19 0.10 - 0.30 gm/dL [facility] Alpha 2 Globulin 0.65 0.40 - 0.90 gm/dL [facility] Beta Globulin 0.71 0.50 - 1.00 gm/dL [facility] Gamma Globulin 0.79 0.50 - 1.30 gm/dL [facility] M1 Band None Detected None Detected [facility] Blood specimen (specimen) 05/02/2019 11:15 AM EDT 05/02/2019 11:24 AM EDT Narrative Resulting Agency Comment Spec In Lab Sumit Pineda MD CHEMISTRY ORDERABLES Performing Organization Address City/State/[facility] Co de Phone Number [facility] [place] [phone] documented in this encounter Visit Diagnoses Diagnosis Cognitive and behavioral changes Other signs and symptoms involving cognition Cognitive and behavioral changes Other signs and symptoms involving cognition documented in this encounter Care Teams Printing Manager Relationship Specialty Start Date End Date Luis E Narayan MD [facility] [facility] [address] PCP - General Family Medicine 03/26/19 01/19/22 documented as of this encounter
--- OUTSIDE RECORDS SUMMARY | 2024-03-04 21:29 | XMS_ITS | Encounter Summary ---
Author Organization [facility] [place] [address] Care Team Providers Care Animal Breeder Name Role Phone Luis E Narayan MD Primary Care Provider Encounter Details Date Type Department Care Team (Late st Contact Info) Description 04/12/2019 Telephone Family Medicine at [facility] [address] [place] [address] Denisse López RN Social History Tobacco Use Types Packs/Day [...] encounter Miscellaneous Notes * Telephone Encounter - Mary Yuen RN - 04/12/2019 2:30 PM EDT Called patient, verified full name and . Patient called and relayed information regarding lab results. Patient asked about disability paperwork left at appointment, this technical report writer will look for and follow up. Patient to call back with any further questions or concerns. Patient agrees with plan and verbalizes understanding of all information given. * Telephone Encounter - Mayte Del Toro - 04/12/2019 2:18 PM EDT Pt rtnd missed nurse call-please call pt back * Telephone Encounter - Denisse López RN - 04/12/2019 10:55 AM EDT Please report: ??She has normal thyroid function, normal B12 level, normal elctrolytes and liver function tests. ??Overall this is GOOD, but does not give us more clues as to cause of cognitive issues. ??Await neurology evaluation Left message to call back to relay message from Dr. Emanuel copied above. documented in this encounter Plan of Treatment Upcoming Encounters Date Type Department Care Team (Late st Contact Info) Description 03/20/2024 9:00 AM EDT TH Visit (TeleHealth) Sleep Center at [facility] [address] [place] [address] Denisse Hardwick, [facility] 03/20/2024 2:00 PM EDT Clinical Support Family Medicine [facility] [address] [place] [phone] Julia Low, [facility] 05/01/2024 11:20 AM EDT Appointment Mammography/[place] [address] Rodney Padilla MD [address] [place] [address] 05/01/2024 1:45 PM EDT [place] [address] Juanpablo Hernandez MD [facility] [place] [address] 01/30/2025 1:30 PM EDT Appointment Hematology [place] [address] 01/30/2025 3:[address] [place] [place] [address] Arturo Cordero MD [facility] DR [place] [address] 01/30/2025 4:15 PM EDT Office Visit [place]ology [place] [address] Arturo Cordero MD [facility] [place] [address] documented as of this encounter Visit Diagnoses Not on filedocumented in this encounter Care Teams Animal Breeder Relationship Specialty Start Date End Date Luis E Narayan MD [facility] [address] [place] [address] PCP - General Family Medicine 03/26/19 01/19/22 documented as of this encounter
--- OUTSIDE RECORDS SUMMARY | 2024-03-04 21:29 | XMS_ITS | Encounter Summary ---
Author Organization [facility] [place] [address] Care Team Providers Care Patient Transition Specialist Name Role Phone Luis E Narayan MD Primary Care Provider Reason for Referral * Consultation (Routine) - Specialty Diagnoses / Procedures Referred By Gonzalez kumari Referred To Contact Sleep Center Diagnoses TITO on CPAP Procedures PRG POLYSOM 6+ YRS SLEEP W 4+ ADDL ABHILASH Bonny Justin MD [address] [place] [address] [facility] Sleep Medicine [address] [place] [address] Referral ID Status Reason Start Date Expiration Date Visits Requested Visits Authorized [id number] Specialty Service Requested 04/09/2019 04/08/2020 1 1 Reason for Visit * Reason Comments Cognitive Decline NEW PATIENT Encounter Details Date Type Department Care Team (Late st Contact Info) Description 04/09/2019 3:00 PM EDT Office Visit Family Medicine at [facility] [address] [place] [address] Bonny Emanuel MD [address] [place] [address] Immunization due (Primary Dx); Altered mental status, unspecified altered mental status type; COPD, moderate; Atherosclerosis of [place] coronary artery of [place] heart with angina pectoris; Other polyneuropathy; TITO on CPAP; Acute recurrent maxillary sinusitis; Type 2 diabetes mellitus without complication, without [...] Sign Reading Time Taken Comments Blood Pressure 124/80 04/09/2019 3:28 PM EDT Pulse 76 04/09/2019 3:28 PM EDT Temperature 36.8 ??C (98.2 ??F) 04/09/2019 3:28 PM ED T Respiratory Rate 20 04/09/2019 3:28 PM EDT Oxygen Saturation 98% 04/09/2019 3:28 PM EDT Inhaled Oxygen Concentration - - Weight 103 kg (227 lb) 04/09/2019 3:28 PM EDT Height 160.7 cm (5' 3.25) 04/09/2019 3:28 PM ED T Body Mass Index 39.89 04/09/2019 3:28 PM EDT documented in this encounter Progress Notes * Bonny Emanuel MD - 04/09/2019 3:00 PM EDT Subjective: Patient ID: Patience Manjarrez is a 58 y.o. female. Chief Complaint Patient presents with ??? Cognitive Decline NEW PATIENT HPI Patience is a new patient to our clinic who presents with her daughter with a report of 10+ weeks ofrespiratory illness followed by mental status change, not back to baseline cognitive function She is a 50-60 pk -yr smoker who was treated for possible pneumonia/ COPD exacerbation at [facility] in early January Treated with IV Levaquin, and prednisone and discharged on 80 mg with taper Approx 10 d later her family brought her to [facility] for evaluation for altered mental status. She does accurately report that she had had days of persistent insomnia, eventually admitted for [facility] with disorientation, delirium, inappropriate speech. Hyponatremia and hyperglycemia noted. After this discharge she notes she had poor balance, urinary and fecal incontinence which was much more abnormal that the usual intermittent stress urinary incontinence Her daughter notes rapid cognitive since November 2018, even before illness and the two hospitalizationsnoted They agree that she does not speak in complete sentences, Her word choice is odd ,and she speaks with missing pronouns Emotional dysregulation-- tearful at least once a day, at times explosive Struggles with word-finding in general Notes that her thinking can be tangential and that she cannot multi-task Daughter reports that she had gross cognitive impairment 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 Finally, her responses on relevant measures suggested moderate levels of depressive symptoms and severe levels of general anxiety, consistent with her report on interview and her clinical presentation. ?? Overall, the pattern of findings does notsuggest significant cognitive dysfunction. While no data is available for comparison purposes, her profile may demonstrate a subtle decline in some aspects ofmemory functioning and word finding, although no bhavin impairment was noted. Ms. Manjarrez suffered a known myocardial infarction, which in combination with numerous cerebrovascular risk factors (i.e., hypertension, hypercholesterolemia, TITO, tobacco use) may account for her cognitive difficulties in daily life and the possible subtle declines found on testing. Review of her pending MRI will be helpful to assess for microvascular disease, and attempts to maintain cardiovascular health will be important to minimize progression of cognitive changes related to vascular causes. Additionally, she endorsed significant levels of affective distress, which are likely contributing to her cognitive difficulties or her perception of her cognitive functioning, and we recommend she consider a course of cognitive- behavioral type psychotherapy. Social History Social History Narrative legally from spouse 2012. 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 50+ pack/ yr hx No alcohol One daughter who is a positive support Medications 04/09/19 4373 Medication Sig Taking? melatonin 5 mg Tablet Take 5 mg by mouth nightly. Yes nitroGLYcerin (NITROSTAT) 0.4 mg Tablet, Sublingual Place 1 tablet under the tongue See Admin Instructions. Yes amLODIPine (NORVASC) 5 mg Tablet Take 1 tablet by mouth daily. Yes metFORMIN (GLUCOPHAGE) 500 mg Tablet Take 1 tablet by mouth 2 times daily (after meals). Yes simvastatin (ZOCOR) 10 mg Tablet Take 1 tablet by mouth daily. Yes lamoTRIgine (LAMICTAL) 25 mg Tablet Take 1 tablet by mouth 3 times daily. Yes fluticasone propionate (FLONASE) 50 mcg/actuation [place], Suspension 50 sprays by Each Nare route 2 times daily. Yes loratadine (CLARITIN) 10 mg Tablet Take 1 tablet by mouth daily. Yes budesonide-formoterol (SYMBICORT) 80-4.5 mcg/actuation HFA Aerosol Inhaler Inhale 2 puffs into the lungs 2 times daily. Yes aspirin (ENTERIC COATED ASPIRIN) 325 mg Tablet, Delayed Release (E.C.) Take 1 tablet by mouth daily. Yes clopidogrel (PLAVIX) 75 mg Tablet Take 1 tablet by mouth daily. Yes metoprolol succinate (TOPROL XL) 25 mg Tablet Sustained Release 24 hr Take 1 tablet by mouth daily.Yes omeprazole 20 mg Tablet, Delayed Release (E.C.) Take 1 tablet by mouth daily. Yes traZODone (DESYREL) 100 mg Tablet Take 1 tablet by mouth nightly. Yes gabapentin (NEURONTIN) 100 mg capsule Take 100 mg by mouth as needed. Indications: Neuropathic PainYes LORazepam (ATIVAN) 0.5 mg tablet Yes fluticasone-salmeterol (ADVAIR HFA) 115-21 mcg/Actuation inhaler Yes ALBUTEROL SULFATE (PROVENTIL HFA INHL) Yes losartan (COZAAR) 100 mg Tablet Take 1 tablet by mouth daily. amoxicillin-clavulanate (AUGMENTIN) 875-125 mg Tablet Take 1 tablet by mouth 2 times daily. atorvastatin (LIPITOR) 10 mg tablet 10 MG = 1 Tablet(s), PO, QHS Patient not taking: No sig reported Past Surgical History: Procedure Laterality Date ??? SECTION ??? CORONARY ANGIOPLASTY WITH STENT PLACEMENT ??? KNEE SURGERY Review of Systems See HPI Objective: BP 124/80 (BP Location (NBP): Left arm, Patient Position: Sitting, BP Cuff Sizes: Large Adult (32-43 cm)) Pulse 76 Temp 36.8 ??C (98.2 ??F) (Temporal) Resp 20 Ht 160.7 cm (5' 3.25) Wt 103 kg (227 lb) SpO2 98% PF 350 L/min BMI 39.89 kg/m?? Patient reported measures: Pain: Physical Health: Fall: No flowsheet data found. Wt Readings from Last 3 Encounters: 04/09/19 103 kg (227 lb) 03/26/19 104.3 kg (230 lb) 02/14/19 106.9 kg (235 lb 9.6 oz) Physical Exam Well-groomed , in NAD. No respiratory distress. Normal BP/ HR OP benign, no thrush R> L maxillary sinus TTP Neck without adenopathy CV RRR nl S1/ S2 no murmur Lungs prolonged expiration, scattered kareem wheeze Ext without notable edema Cognitive: Tangential speech, with odd syntax and missing words (kareem pronouns) and slow word-finding Demonstrates fair insight and good recall which her daughter corroborates Mood mildly depressed MRI 03/26/19 IMPRESSION Scattered periventricular and subcortical white matter foci without restricted diffusion or enhancement. Findings are indeterminate with broad differential which includes small inactive demyelinating lesions, chronic small vessel ischemic changes from microangiopathy, hypertension or migraines, or even inflammation from vasculitides or other inflammatory/inflammatory processes. Results for PATIENCE MANJARREZ ( ) as of 04/10/2019 22:41 Ref. Range 04/09/2019 17:02 Sodium Latest Ref [...] Ref Range: 0 - 30 unit/L 29 Vitamin B-12 Latest Ref Range: 232 - 1,245 pg/mL 820 Assessment and Plan: 1. Altered mental status, unspecified altered mental status type She has a hx that suggests cognitive vulnerability since 2007 following AMI . Neuropsychologic testing then was not revealing I do think that this vulnerability was exacerbated in early January by illness, high-dose steroids andhigh-dose Levaquin, hyponatremia That said, she is far off baseline now > 2 mo later and has notably abnl MRI Has upcoming appt with Neurology who may want repeat neuropsychologic testing to add to their evaluation 2. COPD, moderate Continue to smoke > 1 PPD but essential nature and strategies for smoking cessation are discussed today Compliant with Symbicort PEFR 350 today 3. 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 Immunization due Interested/ agreeble to all today - FluLaval Quadrivalent vaccine, Preservative Free 3YRS+ - PNEUMOCOCCAL CONJUGATE VACCINE 13-VALENT - Tdap vaccine greater than or equal to 7yo IM 5. Other polyneuropathy Likely associated with T2DM, recurrent need for steroids - TSH Thayer - Vitamin B12 - Methylmalonic acid, serum 6. TITO on CPAP She reports good compliance Last sleep study > 10 yr ago and not clear that settings are correct Given mental status changes, worthy of re-eval, titration - Referral to Sleep Disorders Center 7. T2DM Last 3 Hemoglobin A1Cs Lab Results Component Value Date HA1C 8.0 (H) 03/26/2019 Now off steroids Compliant with metformin 500 mg BID We agree to no change in med regimen now, but will repeat Hg1c in 3 m 8. Acute maxillary sinusitis augmentin 875 mg BID x 10 d * Bonny Emanuel MD - 04/09/2019 3:00 PM EDT Please report: She has normal thyroid function, normal B12 level, normal elctrolytes and liver function tests. Overall this is GOOD, but does not give us more clues as to cause of cognitive issues. Await neurology evaluation documented in this encounter Plan of Treatment Upcoming Encounters Date Type Department Care Team (Late st Contact Info) Description 03/20/2024 9:00 AM EDT TH Visit (TeleHealth) Sleep Center at [facility] [address] [place] [phone] Denisse Hardwick, [facility] 03/20/2024 2:00 PM EDT Clinical Support Family Medicine at [facility] [address] [place] [phone] Julia Low, [facility] 05/01/2024 11:20 AM EDT Appointment Mammography/[place] [phone] Rodney Padilla MD [address] [facility] [place] [address] 05/01/2024 1:45 PM EDT Office [place] [address] Juanpablo Hernandez MD [facility] [place] [address] 01/30/2025 1:30 PM EDT Appointment Hematology [place] [address] 01/30/2025 3:[address] [place] [address] Arturo Cordero MD [facility] DR HEMATOLOGY AND ONCOLOGY [place], [place] [id number] 01/30/2025 4:15 PM EDT Office Visit H[place]ology [place] [address] Arturo Cordero MD [facility] DR HEMATOLOGY [place] [address] Scheduled Referrals Name Type Priority Associated Diagnoses Orde r Schedule Referral to Sleep Disorders Center Outpatient Referral Routine TITO on CPAP Ordered: 04/09/2019 documented as of this encounter Procedures Procedure Name Priority Date/Time Associated Diagnosis Comments HC VENIPUNCTURE Routine 04/09/2019 5:02 PM EDT Other polyneuropathy HC PCH METHYLMALONIC ACID Routine 04/09/2019 5:02 PM EDT Other polyneuropathy HC VITAMIN B12 SERUM Routine 04/09/2019 5:02 PM EDT Other polyneuropathy COMPREHENSIVE METABOLIC PANEL Routine 04/09/2019 5:02 PM EDT Atherosclerosis of [place] coronary artery of [place] heart with angina pectoris documented in this encounter Results * TSH Thayer (04/09/2019 5:02 PM EDT) Thyroid Stimulating Hormone 3.57 0.27 - 4.20 mcIU/mL [facility] Blood specimen (specimen) 04/09/2019 5:02 PM EDT 04/09/2019 6:50 PM EDT Narrative Resulting Agency Comment Spec In Lab Bonny Emanuel MD CHEMISTRY ORDERABLES [facility] [place] [place] [address] * Comprehensive metabolic panel (non-fasting) (04/09/2019 5:02 PM EDT) Glucose 99 65 - 199 mg/dL [facility] Comment:Diabetes: >=200 mg/d L plus symptoms Blood Urea Nitrogen 13 8 - 18 mg/dL [facility] Creatinine 0.81 0.70 - 1.20 mg/dL [facility] Sodium 143 135 - 145 mmol/L [facility] Potassium 4.1 3.5 - 5.0 mmol/L [facility] Comment: Please note: ??Patients with WBC >100,000 may have falsely elevated Potassium levels. ??For accurate Potassium quantification in these patients send serum separator tube (gold top) for subsequent determinations. ??Contact the Clinical Chemistry Laboratory if there are any questions. Chloride 101 98 - 107 mmol/L [facility] Carbon Dioxide 29 22 - 31 mmol/L [facility] Anion Gap 13 5 - 15 mmol/L [facility] Calcium 9.7 8.5 - 10.5 mg/dL [facility] Protein, Total 7.1 6.1 - 8.0 gm/dL [facility] Albumin 4.3 3.2 - 5.2 gm/dL [facility] Aspartate Aminotransferase 28 0 - 30 unit/L [facility] Alanine Aminotransferase 29 0 - 30 unit/L [facility] Alkaline Phosphatase 80 35 - 105 unit/L [facility] Bilirubin, Total 0.3 0.2 - 1.3 mg/dL [facility] Est Glomerular Filtration Rate 79 >=60 mL/min/1. 73 m?? [facility] Comment: The eGFR was calculated using the CKD-EPI equation. As with all creatinine based estimates of kidney function, eGFR values calculated with the CKD-EPI equation are not accurate in patients with acute kidney failure, extremes of body mass or the acutely ill. [email or web address] eGFR 92 >=60 mL/min/1. 73 m?? [facility] Comment: The eGFR was calculated using the CKD-EPI equation. As with all creatinine based estimates of kidney function, eGFR values calculated with the CKD-EPI equation are not accurate in patients with acute kidney failure, extremes of body mass or the acutely ill. [email or web address] Blood specimen (specimen) 04/09/2019 5:02 PM EDT 04/09/2019 6:50 PM EDT Narrative Resulting Agency Comment Spec In Lab Bonny Emanuel MD CHEMISTRY ORDERABLES Performing Organization Address [facility] Co de Phone Number [facility] [place] [place] [address] * Vitamin B12 (04/09/2019 5:02 PM EDT) Vitamin B12 820 232 - 1,245 pg/mL [facility] Blood specimen (specimen) 04/09/2019 5:02 PM EDT 04/09/2019 6:50 PM EDT Narrative Resulting Agency Comment Spec In Lab Bonny Emanuel MD CHEMISTRY ORDERABLES Performing Organization Address [facility] de Phone Number [facility] [place] [address] * Methylmalonic acid, serum (04/09/2019 5:02 PM EDT) Methylmalonic Acid (MAY) 0.20 <=0.40 nmol/mL [facility] Comment: ADDITIONAL INFORMATION This test was developed and its performance characteristics determined by [facility] in a manner consistent with CLIA requirements. This test has not been cleared or approved by the U.S. Food and Drug Administration. Test Performed by: [facility] - [address] [address] Senior Information Developer: Jose G Jefferson M.D. Ph.D.; CLIA# [id number] Blood specimen (specimen) 04/09/2019 5:02 PM EDT 04/10/2019 8:35 AM EDT Narrative Resulting Agency Comment Spec In Lab Bonny Emanuel MD LAB SEND OUT ORDERAB LES Performing Organization Address City/[facility] Co de Phone Number 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
--- OUTSIDE RECORDS SUMMARY | 2024-03-04 21:29 | XMS_ITS | Encounter Summary ---
Author Organization [facility] [place] [address] Care Team Providers Care Sculpture Instructor Name Role Phone Luis E Narayan MD Primary Care Provider [phone] Reason for Visit * Reason Onset Date Comments Follow-up Renal Mass 05/27/2019 Encounter Details Date Type Department Care Team (Late st Contact Info) Description 05/27/2019 3:20 PM EST [place] [address] Avila Medina MD [facility] [place] [address] Renal mass (Primary Dx) Social History Tobacco Use Types [...] Sign Reading Time Taken Comments Blood Pressure 134/70 05/27/2019 2:52 PM EST Pulse 61 05/27/2019 2:52 PM EST Temperature - - Respiratory Rate - - Oxygen Saturation - - Inhaled Oxygen Concentration - - Weight - - Height - - Body Mass Index - - documented in this encounter Patient Instructions * Patient Instructions* Avila Medina MD - 05/27/2019 3:20 PM EST Nephrectomy/Nephroureterectomy Patient Instructions Instructions Prior to Surgery Please stop taking any over the counter supplements one week before surgery. If you are on any blood thinners such as: Coumadin, Plavix, Aspirin, or Xarelto PLEASE check with the Urology Clinic if you did not receive any instructions on discontinuing them prior to surgery. Day Prior to Surgery Please shower 24 hours before AND the night before surgery. Please use a Chlorhexidene based antiseptic soap such as Hibiclens. You can buy Hibiclens over the counter at your pharmacy or you can obtain it from the [facility] Same day program on the day of your preoperative visit. Please take only clear liquids by mouth from noon the day before surgery. Please take nothing by mouth from 2 hours before the time you have been told to report to the hospital. If you have any questions please call the [facility] at or documented in this encounter Progress Notes * Aleisha York, KATHIA - 05/27/2019 3:20 PM EST Images from the original note were not included. Patient Name: Alize Gramajo Date of Service: 05/27/2019 Primary Care Provider: Luis E Narayan MD Reason for Visit: Alize Gramajo is a 58 y.o. female who is referred for evaluation of renal and adrenal masses. Patient had a screening U/S as she had a brother who of renal cancer (unclear if there is a true familial syndrome). The patient has no symptoms of renal cancer. She was admitted for a viral syndrome in January and has been sick since. She has multiple complalints, she has urinary urgency and wears depens. No blood Appetite is OK weight is down a little. There is no new bone pain. The patient has no symptoms related to the adrenal masses. Functional mass Pheochromacytoma: Essential HTN but no paroxysmal HTN, flushing, palpitations or anxiety attacks Corticosteroid excess: Essential HTN some easy bruising and cuhinoid feature changes.Mineralocoticoid excess: Essential HTN but no history of problems with hypokalemia Sex Steroid: No history of change in sexual characteristics, breasts, hair distribution, desire Past Medical History: Currently being w/u for a neurological condition ASCVD MD with stents 11 years ago Type II DM HTN Neuropathy Past Surgical History: Left knee surgery CS Section Medications: Reviewed Allergies: Reviewed Family History: There is no family history of renal cancer. 07/12 Brother in 60s of renal cancer. 1 brother has a renal mass on observation. 07/12 OK. No sisters. Mother Uterine cancer later in life. 2 maternal aunts (1 renal/1 breast). Father of ASCVD. No cancer on fathers side. Social History: The patient works is an unemployed. The patient lives with her boyfriend of 3 years. The patient drinks no ETOH. Tobacco: 1 ppd. Encouraged to quit. Systems review: She gardens. She is unable to walk a mile . She can walk 1 -2 flight of stairs. Active in her flower garden. HEENT: Denies problems with vision, hearing, runny nose, epistaxis, sore throat, hoarseness Cardiovascular: Denies Chest pain, palpitations, shortness of breath, ankle swelling, claudication Respiratory: Denies cough, phlegm, hemoptysis,wheeze, Gastrointestinal: Denies nausea, difficulty swallowing, vomiting, hematemesis, constipation, diarrhea, blood per rectum Neurological: Denies dizziness, double vision, headache, weakness of one side of the body or the other,sudden loss of vision in one eye, Bones and muscles: Denies bone pain, radiating pain, muscle weakness or sore ness. All other systems negative. Physical Exam: Most Recent Vitals: 05/27/19 1452 BP: 134/70 Pulse: 61 The patient has no signs of excess adrenal hormone secretion. Functional mass Pheochromacytoma: Blood Pressure today is within the expected range Corticosteroid excess:The patient has significant cushinoid visage, with some abdominal striae. SHedoes have a history of steroid treatment Mineralocoticoid excess: Blood Pressure today is within the expected range Sex Steroid: Breasts, hair distribution and other secondary sexual characteristics are as expected for age and gender. The patient Appears in no distress. Examination of the hands, head neck, eyes ears nose and throat is normal. The skin is normal. The abdomen is benign. There are no masses or organomegaly. Abdominal striae. She does have left lower quadrant mild tenderness External genitalia is normal a rectal and vaginal exam are not performed. Examination of the extremities and neurological examination is grossly normal. Lab values are reviewed 03/2019 Hb 14, Plt 404, Cr 0.99, eGFR 61, Alk P 77, LFT's OK 04/2019: adrenal metabolic workup: normal Aldosterone 5.5-nl Cortisol 1-nl Renin 2.2-nl Normetanephrine 0.46-normal Metanephrines 0.20 normal X-rays are reviewed and are as noted in the history. 03/2019 Renal Cyst Left 03/2019 CT With contrast onlu Left Adrenal cystic mass suspicious for a Bosniak IV renal mass Left adrenal nodule Renal Mass Location RENAL SCORE Radius Exophytic Nearness to sinus Anterior/posterior Location Polar Line Total <4cm 4-7 >7 >50% <50% Endo >7mm 4-7 <4 A P None 1 Both X X X X X 7P Left adrenal nodule 04/2019: MRI abd: IMPRESSION 1. LEFT adrenal gland nodule, exhibiting signal characteristics compatible with an adenoma. 2. As noted previously, complex cystic and solid LEFT renal mass; cannot exclude a cystic neoplasm (Bosniak 3- 4) Impression: #1: Cystic renal mass suspicious for a [id number] renal cancer but incomplete evaluation #2: Positive family hx of renal cancer, but no clear suggestion of inherited syndrome #3: Adrenal mass with Cushingoid features, but recent steroid use. Negative metabolic workup #4: Recent neurological issues. Evaluation ongoing #5: Moderate comorbidiity Plan: Completion of w/u for other medical issues. Discussion of DDx of her renal and adrenal mass. 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 Renal mass certainly suspicious for a cysticrenal cancer. In general these have a relatively low metastatic potential. We will discuss treatment options bx/excision/ablation/observation etc following MR * Avila Medina MD - 05/27/2019 3:20 PM EST Images from the original note were not included. Patient Name: Alize Gramajo Date of Service: 05/27/2019 Primary Care Provider: Luis E Narayan MD Reason for Visit: Alize Gramajo is a 58 y.o. female who comes for f/u of a cystic renal mass and an adrenal mass. Patient had a screening U/S as she had a brother who of renal cancer (unclear if there is a true familial syndrome. The patient has no symptoms of renal cancer. She was admitted for a viral syndrome in January and has been sick since. She has multiple complalints, she has urinary urgency and wears depens. No blood Appetite is OK weight is down a little. There is no new bone pain. The patient has no symptoms related to the adrenal masses.although has essential HTN, and some easybruising Past Medical History: Currently being w/u for a neurological condition ASCVD MD with stents 11 years ago Type II DM HTN Neuropathy Past Surgical History: Left knee surgery CS Section Medications: Reviewed Allergies: Reviewed Family History: There is no family history of renal cancer. 1/3 Brother in 60s of renal cancer. 1/3 brother has a renal mass on observation. 07/12 OK. No sisters. Mother Uterine cancer later in life. 2 maternal aunts (1 renal/1 breast). Father of ASCVD. No cancer on fathers side. Social History: The patient works is an unemployed. The patient lives with her boyfriend of 3 years. The patient drinks no ETOH. Tobacco: 1 ppd. Encouraged to quit. Systems review: She gardens. She is unable to walk a mile . She can walk 1 -2 flight of stairs. Active in her flower garden. Physical Exam: Most Recent Vitals: 05/27/19 1452 BP: 134/70 Pulse: 61 The patient has the following signs of excess adrenal hormone secretion. The patient has significant cushinoid visage, with some abdominal striae. SHe does have a history of steroid treatment Not formally examined today Lab values are reviewed 03/2019 Hb 14, Plt 404, Cr 0.99, eGFR 61, Alk P 77, LFT's OK 04/2019 Metabolic w/u 04/2019: adrenal metabolic workup: normal Aldosterone 5.5-nl Cortisol 1-nl Renin 2.2-nl Normetanephrine 0.46-normal Metanephrines 0.20 normal X-rays are reviewed and are as noted in the history. 03/2019 Renal Cyst Left 03/2019 CT With contrast onlu Left Adrenal cystic mass suspicious for a Bosniak IV renal mass Left adrenal nodule Renal Mass Location RENAL SCORE Radius Exophytic Nearness to sinus Anterior/posterior Location Polar Line Total <4cm 4-7 >7 >50% <50% Endo >7mm 4-7 <4 A P None 1 Both X X X X X 7P Left adrenal nodule 05/2019 MR Adrenals: As noted on the recent CT, a 17 mm nodule seen in the LEFT adrenal gland. On the out of phase images it exhibits diffuse signal dropout, indicating intracellular fat, compatible with an adenoma. RIGHT adrenal gland is normal. Kidneys: As noted on the previous CT, a complex,, 2.7 cm mixed signal intensity mass is seen extending from the cortex of the lower pole of the LEFT kidney. The mass has both cystic, and solid components with thickened enhancing internal septations (series 11, image 52). The RIGHT kidney is normal. IMPRESSION 1. LEFT adrenal gland nodule, exhibiting signal characteristics compatible with an adenoma. 2. 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 Evaluation ongoing #5: Moderate comorbidiity Plan: Left Retroperitoneal partial nephrectomy Continue Asprin. Stop Plavix 7 days preop Preop labs and CXR Stop smoking prior to surgery (will contact PCP for nictotine patch) Clearance from PCP. I discussed the fact that there was an 80% chance that this was a malignant renal tumor. I discussed the role of biopsy which I would not recommend in this patient as renal mass biopsy has a high false negative rate in cystic renal tumors. I discussed the treatment options for the renal mass including radical nephrectomy, partial nephrectomy either in an open or laparoscopic fashion, minimally invasive approaches such as radio frequency ablation and cryo surgery. In addition observation with serial imaging is an option for small renal masses in patients with significant comorbidity. In her case I would favour a robot assisted retrpoperitoneal laparoscopic partial nephrectomy for diagnostic and therapeutic purposes. My primary recommendation would be a LEFT robot assisted lap partial nephrectomy. She understands that that laparoscopic partial nephrectomy is one of the most challanging laparoscopic urological procedures. We talked about the pros and cons of open vs. laparoscopic surgery. I discussed the pre, intra and post operative care and decision making. I discussed the risks of this procedure including bleeding infection, injury to adjacent organs (liver, spleen, pancrease, colon, duodenum, nerves, blood vessels etc). The two most common complications being bleeding (risk of tr ansfusion/HIV/hepatitis etc) and urine leak requiring stenting.I discussed the risks of conversion to hand assistance and open surgery.I discussed the risks of loss of the kidney and the consequencesof this. I discussed the risks of unexpected complications requiring prolonged hospital stay, ICU stay, reopertation etc. The patient understands that there is a risk of incomplete tumor resection and recurrence. All the questions were answered. The patient will call if there are other questions. documented in this encounter Plan of Treatment Upcoming Encounters Date Type Department Care Team (Late st Contact Info) Description 03/20/2024 9:00 AM EDT TH Visit (TeleHealth) Sleep Center [facility] [address] [place] [phone] Denisse Hardwick, [facility] 03/20/2024 2:00 PM EDT Clinical Support [facility] [address] [place] [address] Julia Low, [facility] 05/01/2024 11:20 AM EDT Appointment Mammography/[place] [address] Rodney Padilla MD [address] [place], [place] [phone] 05/01/2024 1:45 PM EDT Office [place] [address] Juanpablo Hernandez MD [facility] [place] [address] 01/30/2025 1:30 PM EDT Appointment Hematology [place] [phone] 01/30/2025 3:[address] [place] [phone] Arturo Cordero MD [facility] HEMATOLOGY AND ONCOLOGY [place], [place] [phone] 01/30/2025 4:15 PM EDT Office Visit Hematology [place] [address] Arturo Cordero MD [facility] HEMATOLOGY AND ONCOLOGY [place], [place] [phone] documented as of this encounter Procedures Procedure Name Priority Date/Time Associated Diagnosis Comments LAPAROSCOPY,PARTIAL NEPHRECTOMY, ROBOTIC ASSIST Routine 05/27/2019 4:00 PM EST Renal mass documented in this [...] number below. Electronically signed by: Chantal Ley [facility]([phone]), at 06/27/2019 1:37 PM Avila Medina MD IMG DX ORDERABLES * (ABNORMAL) Urine culture Clean Catch Urine (06/21/2019 12:06 PM EST) Pathologist [facility] Urine Culture 10,000-49,000 cfu/ml mixed mucosal nimisha [...] - GENER AL ORDERABLES [facility] [place] [address] * (ABNORMAL) Comprehensive metabolic panel (non-fasting) (06/21/2019 12:02 PM EST) Pathologist [facility] Glucose 205(H) 65 - 199 mg/dL [facility] [...] of body mass or the acutely ill. [email or web address] [email or web address] eGFR 81 >=60 mL/min/1. 73 m?? [facility] Comment: The eGFR was calculated using the CKD-EPI equation. As with all creatinine based estimates of kidney function, eGFR values calculated with the CKD-EPI equation are not accurate in patients with acute kidney failure, extremes of body mass or the acutely ill. [email or web address] [email or web address] Blood specimen (specimen) 06/21/2019 12:02 PM EST 06/21/2019 12:12 PM EST Narrative Resulting Agency Comment Spec In Lab Avila Medina MD CHEMISTRY ORDERABLES [facility] [place] [address] documented in this encounter Visit Diagnoses Diagnosis Renal mass- Primary Unspecified disorder of kidney and ureter Renal mass Unspecified disorder of kidney and ureter documented in this encounter Care Teams Sculpture Instructor Relationship Specialty Start Date End Date Luis E Narayan MD [facility] [address] [place] [address] PCP - General Family Medicine 03/26/19 01/19/22 documented as of this encounter
--- OUTSIDE RECORDS SUMMARY | 2024-03-04 21:29 | XMS_ITS | Encounter Summary ---
[facility] [place] [address] Care Team Providers Care Senior Research Manager Name Role Phone Luis E Narayan MD Primary Care Provider [phone] Encounter Details Date Type Department Care Team (Latest Contact Info) Description 05/02/2019 10:55 AM EDT Laboratory Appointment Lab [address] [phone] Cognitive and behavioral changes Social History Tobacco [...] at [facility] [address] [place] [phone] Denisse Hardwick, [facility] 03/20/2024 2:00 PM EDT Clinical Support Family Medicine at [facility] [address] [place] [address] Julia Low RP 05/01/2024 11:20 AM EDT Appointment Mammography/[place] [address] Rodney Padilla MD [address] [place] [address] 05/01/2024 1:45 PM EDT Office Visit Ophthalmology at [place] [phone] Juanpablo Hernandez MD [facility] [place] [address] 01/30/2025 1:30 PM EDT Appointment Hematology and Oncology at [place] [phone] 01/30/2025 3:[address] [place] [phone] Arturo Cordero MD [facility] DR HEMATOLOGY [place] [address] 01/30/2025 4:15 PM EDT Office Visit Hematology and Oncology at [place] [phone] Arturo Cordero MD [facility] DR HEMATOLOGY [place] [address] documented as of this encounter Procedures Procedure Name Priority Date/Time Associated Diagnosis Comments HC PCH THIAMIN LVL(VITAMIN B1) WB-ARIAS Routine 05/02/2019 11:15 AM EDT Cognitive and behavioral changes HC SERUM PROT. ELECTROPHORESIS Routine 05/02/2019 11:15 AM EDT Cognitive and behavioral changes documented in this encounter Results * Protein Electrophoresis, serum (05/02/2019 11:15 AM EDT) Total Prot Electrophoresis 6.5 6.1 - 8.0 gm/dL [facility] Albumin Electrophoresis 4.17 3.60 - 6.00 gm/dL [facility] Alpha 1 Globulin 0.19 0.10 - 0.30 gm/dL [facility] Alpha 2 Globulin 0.65 0.40 - 0.90 gm/dL [facility] Beta Globulin 0.71 0.50 - 1.00 gm/dL [facility] Gamma Globulin 0.79 0.50 - 1.30 gm/dL [facility] M1 Band None Detected None Detected [facility] Blood specimen (specimen) 05/02/2019 11:15 AM EDT 05/02/2019 11:24 AM EDT Narrative Resulting Agency Comment Spec In Lab Sumit Pineda MD CHEMISTRY ORDERABLES Performing Organization Address [facility] [place] [address] * Vitamin B1, whole blood (05/02/2019 11:15 AM EDT) Vit B1 Lvl Wb (NOVEMBER) 173 70 - 180 nmol/L [facility] Comment: ADDITIONAL INFORMATION This test was developed and its performance characteristics determined by [facility] in a manner consistent with CLIA requirements. This test has not been cleared or approved by the U.S. Food and Drug Administration. Test Performed by: [facility] - [address] [address] Centrifuge Separator Tender: Jose G Jefferson M.D. Ph.D.; CLIA# [id number] Blood specimen (specimen) 05/02/2019 11:15 AM EDT 05/02/2019 1:43 PM EDT Narrative Resulting Agency Comment Spec In Lab Sumit Pineda MD LAB SEND OUT ORDERAB LES Performing Organization Address [facility] Co de Phone Number [facility] [address] documented in this encounter Visit Diagnoses Diagnosis Cognitive and behavioral changes Other signs and symptoms involving cognition documented in this encounter Care Teams Senior Research Manager Relationship Specialty Start Date End Date Luis E Narayan MD [facility] [address] [address] PCP - General Family Medicine 03/26/19 01/19/22 documented as of this encounter
--- OUTSIDE RECORDS SUMMARY | 2024-03-04 21:29 | XMS_ITS | Encounter Summary ---
Author Organization [facility] [place] [address] Care Team Providers Care Associate Professor Of Biology Name Role Phone Brenda Canchola MD Primary Care Provider [phone] Encounter Details Date Type Department Care Team (Late st Contact Info) Description 12/14/2012 Ancillary Procedure [place] [address] Luis E Narayan MD [facility] [address] [address] Social History Tobacco Use Types Packs/Day Years Used Date Smoking Tobacco: Every Day Cigarettes Alcohol Use Standard Drinks/Week Comments No 0 [...] [facility] [address] [place] [phone] Denisse Hardwick [facility] 03/20/2024 2:00 PM EDT Clinical Support Family Medicine [facility] [address] [place] [phone] Julia Low, [facility] 05/01/2024 11:20 AM EDT Appointment Mammography/[place] [address] Rodney Padilla MD [address] [place] [place] [address] 05/01/2024 1:45 PM EDT [place] [address] Juanpablo Hernandez MD [facility] [place] [address] 01/30/2025 1:30 PM EDT Appointment Hematology and Oncology at [place] [address] 01/30/2025 3:[address] [place] [address] Arturo Cordero MD [facility] DR HEMATOLOGY [place] [address] 01/30/2025 4:15 PM EDT Office Visit Hematology and Oncology at [place] [phone] Arturo Cordero MD [facility] DR [place] [address] documented as of this encounter Procedures Procedure Name Priority Date/Time Associated Diagnosis Comments FILM LIBRARY STORAGE ONLY MAMMO Routine 12/14/2012 12:00 AM EDT documented in this encounter Results * Film Library- Storage Only Mammo (12/14/2012 12:00 AM EDT) Narrative [facility] - 05/24/2019 9:36 PM EST This exam is auto-finalizing. It's purpose is for storage only. Luis E Narayan MD IMG FILM LIBRARY OR DERABLES Performing Organization Address City/State/[facility] Co de Phone Number [place], [place] documented in this encounter Visit Diagnoses Not on filedocumented in this encounter Care Teams Associate Professor Of Biology Relationship Specialty Start Date End Date Brenda Canchola MD [address] [place] [address] PCP - General 06/01/10 03/25/19 documented as of this encounter
--- OUTSIDE RECORDS SUMMARY | 2024-03-04 21:29 | XMS_ITS | Encounter Summary ---
[place] [address] Care Team Providers Care Master Sonar Technician Name Role Phone Luis E Narayan MD Primary Care Provider [phone] Reason for Referral * Consultation (Routine) - Closed Specialty Diagnoses / Procedures Referred By Gonzalez kumari Referred To Contact Neurology Diagnoses Abnormal MRI of head Luis E Narayan MD [facility] DR LILI [place] [address] [facility] Neurology [address] [place] [id number] Referral ID Status Reason Start Date Expiration Date V isits Requested Visits Authorized [id number] Closed Specialty Service Requested 03/28/2019 03/27/2020 1 1 Reason for Visit * Reason Onset Date Comments Results 03/28/2019 Encounter Details Date Type Department Care Team (Late st Contact Info) Description 03/28/2019 Telephone Family Medicine at [facility] [address] [place] [phone] Ally Palomo Results Social History Tobacco Use Types Packs/Day [...] Telephone Encounter - Thania Flores RN - 03/28/2019 6:41 PM EDT Call to patient. Patient identified by name and . Dr. Narayan's message was passed onto patient.Patient was able to repeat the message. Patient is aware that she needs to follow up with neurologywhich is the next step and an appointment is already scheduled on 05/02. * Telephone Encounter - Luis E Narayan MD - 03/28/2019 5:12 PM EDT Is she wants to set up [facility], I can send her messages directly.... The MRI is not specific. There were some white spots that could mean a lot of different things. They could be from decreased blood flow over many years - just like people with heart disease have decreased blood flow to the heart causing problems. They could be from high blood pressure of many years- something she has had. Yes, MS is one of many possibilities, but not in the top of the list. For now, no need to worry. Next step is to see Neurology. They will probably order additional tests to help figure this out. Iplaced a referral. If she does not hear from anybody in a week about scheduling the visit, she should let us know. Mk, Filiberto * Telephone Encounter - Thania Flores RN - 03/28/2019 2:51 PM EDT Call to patient. Patient identified by name and . Patient is notified that her MRI report says that there is no bleeding or mass. But it is going to be reviewed and interpreted by Dr. Narayan. Patient says that she still does not feel quite well, she feels her speech is not quite right, but is alittle better today. She still feels imbalanced with edema in LEs. Then she gets emotional and starts to cry. She says that she would like to speak to Dr. Narayan and finds out if she has MS. Then, she will be able to know what the next step is and if she need to apply for disability. She says thatshe never was a person that tries to take advantage of things. She says that she gets very anxious waiting for the results and would like to have an answer to her MRI report. * Telephone Encounter - Ally Palomo - 03/28/2019 2:19 PM EDT Requesting test results: Type of Test: CT Scan Date of Test: 03/26/19 Where Test was performed: ED Who ordered the Test: Dr. Elpidio Pinedo from the ED Caller and relationship (if other than patient-full name): Alize Gramajo - patient Best time to call back: any Ok to leave a message: yes Ok to send - message MA/Nurse contacted via: Message: yes Call: no Pager: no documented in this encounter Plan of Treatment Upcoming Encounters Date Type Department Care Team (Late st Contact Info) Description 03/20/2024 9:00 AM EDT TH Visit (TeleHealth) Sleep Center at [facility] [address] [place] [phone] Denisse Hardwick, [employer] [facility] 03/20/2024 2:00 PM EDT Clinical Support Family Medicine at [facility] [address] [place] [phone] Julia Low, [facility] 05/01/2024 11:20 AM EDT Appointment Mammography/[place] [address] Rodney Padilla MD [address] [facility] [place], [place] [id number] 05/01/2024 1:45 PM EDT Office [place] [address] Juanpablo Hernandez MD [facility] [place] [address] 01/30/2025 1:30 PM EDT Appointment Hematology and Oncology at [place] [phone] 01/30/2025 3:[address] Scan at [place] [phone] Arturo Cordero MD [facility] [place] [address] 01/30/2025 4:15 PM EDT Office Visit Hematology [place] [address] Arturo Cordero MD [facility] DR [place] [address] Scheduled Referrals Name Type Priority Associated Diagnoses Orde r Schedule Referral to Neurology Outpatient Referral Routine Abnormal MRI of head Ordered: 03/28/2019 documented as of this encounter Visit Diagnoses Diagnosis Abnormal MRI of head Nonspecific (abnormal) findings on radiological and other examination of skull and head Atherosclerosis of [place] coronary artery of [place] heart with angina pectoris documented in this encounter Care Teams Master Sonar Technician Relationship Specialty Start Date End Date Luis E Narayan MD [facility] [address] [place] [address] PCP - General Family Medicine 03/26/19 01/19/22 documented as of this encounter
--- OUTSIDE RECORDS SUMMARY | 2024-03-04 21:29 | XMS_ITS | Encounter Summary ---
[place] [address] Care Team Providers Care Warehouse Representative Name Role Phone Brenda Renee MD Primary Care Provider [phone] Encounter Details Date Type Department Care Team (Latest Contact Info) Description 07/22/2013 3:11 PM EST - 07/22/2013 11:59 PM EST [place] [address] CLINIC, Brenda Greenwood MD [address] [place] [address] Discharge Disposition: Home Social History Tobacco Use [...] Sig Dispensed Refills Start Date End Date gabapentin (NEURONTIN) 100 mg capsuleIndications:nathaniel ropathic pain Take 100 mg by mouth as needed. Indications: Neuropathic Pain 05/02/2019 LORazepam (ATIVAN) 0.5 mg tablet 07/14/2010 05/02/2019 aspirin (ENTERIC COATED ASPIRIN) 325 mg EC tablet 325 MG = 1 Tablet(s), PO, Once daily 07/14/2010 04/09/2019 clopidogrel (PLAVIX) 75 mg tablet 75 MG = 1 Tablet(s), PO, Once daily 07/14/2010 04/09/2019 atorvastatin (LIPITOR) 10 mg tablet 10 MG = 1 Tablet(s), PO, QHS 07/14/2010 05/02/2019 metoprolol succinate (TOPROL XL) 25 mg 24 hr tablet 25 MG = 1 Tablet(s), PO, Once daily 07/14/2010 04/09/2019 nitroGLYcerin (NITROSTAT) 0.4 mg SL tablet 0.4 MG = 1 Tablet(s), Sublingual, as directed 07/14/2010 04/09/20 19 LOSARTAN POTASSIUM (COZAAR ORAL) 07/14/2010 04/09/2019 Omeprazole 20 mg TbEC 07/14/20102018 traZODone (DESYREL) 100 mg tablet 07/14/2010 04/09/2019 fluticasone-salmeterol (ADVAIR HFA) 115-21 mcg/Actuation inhaler 07/14/20102019 ALBUTEROL SULFATE (PROVENTIL HFA INHL) 07/14/2010 021 documented as of this encounter Progress Notes * Moses Hicks RN - 07/19/2013 1:36 PM EST VIR MRI PRE-SEDATION ASSESSMENT NOTE NAME: Alize Gramajo AGE: 52 y.o. : 1960 Female [phone] (home) Telephone Information: PCP OPERATION SUPERVISOR BRENDA RENEE MD None Allergies Allergen Reactions ??? Codeine Phosphate Nausea And Vomiting ??? Erythromycin Base Nausea Only ??? Nsaids (Non-Steroidal Anti-Inflammatory Drug) Nausea And Vomiting Date/Time of call: July 19, 2013/1:37 PM/ PREVIOUS MRI SCAN? Yes, many years ago at [facility] HEIGHT: 63 1/2 WEIGHT: 270# (confirmed large scanner) SCHEDULED SCAN: MRI lumbar spine SUBJECTIVE: Pt states that she is claustrophobic. ASSESSMENT: Pt takes Ativan 0.5 at home. She feels this will be adequate. PLAN: Pt own ativan, will start with 0.5 mg po. PRIOR SCAN DATE/S SEDATION TYPE SUCCESSFUL Before 2003, no nurse's note 07-22-13 MRI lumbar spine Own ativan 1mg x1 yes PT WILL ARRIVE 1 HR. BEFORE SCHEDULED SCAN AND HAVE A MOLD FILLER PLASTIC DOLLS AVAILABLE. PT STATED TO PATIENT SERVICE REP THAT THE SEDATION WAS EFFECTIVE FOR SCAN: Y N COMMENTS: This patient has been informed that they require a cdl bulk driver to drive them home after this procedure. In the absence of a cdl bulk driver, IR will not be able to perform this procedure and will need to reschedule. Pt verbalized understanding of these instructions during the pre-procedure education via phone. documented in this encounter Miscellaneous Notes * Miscellaneous - Provider, Scanning - 07/29/2013 8:35 AM EST documented in this encounter Plan of Treatment Upcoming Encounters Date Type Department Care Team (Late st Contact Info) Description 03/20/2024 9:00 AM EDT TH Visit (TeleHealth) Sleep Center at [facility] [address] [place] [phone] Denisse Hardwick, [facility] 03/20/2024 2:00 PM EDT Clinical Support Family Medicine at [facility] [address] [place] [address] Julia Low [facility] 05/01/2024 11:20 AM EDT Appointment Mammography/[place] [address] Rodney Padilla MD [address] [facility] [place], [place] [id number] 05/01/2024 1:45 PM EDT [place] [address] Juanpablo Hernandez MD [facility] [place] [address] 01/30/2025 1:30 PM EDT Appointment Hematology [place] [address] 01/30/2025 3:[address] [place] [address] Arturo Cordero MD [facility] H[place]ATOLOG[place] [address] 01/30/2025 4:15 PM EDT Office Visit Hematology [place] [address] Arturo Cordero MD [facility] [place]ATOLOG[place] [address] documented as of this encounter Procedures Procedure Name Priority Date/Time Associated Diagnosis Comments MRI LUMBAR SPINE WITHOUT CONTRAST Routine 07/22/2013 4:36 PM EST documented in this encounter Results * MRI lumbar spine without contrast (07/22/2013 4:36 PM EST) Anatomical Region Laterality Modality L-spine Magnetic Resonan ce 07/22/2013 4:36 PM EST Narrative 07/22/2013 5:03 PM EST Examination MR Lumbar Spine WO Clinical History left sciatica Technique MR images were obtained of the lumbar spine without contrast. Comparison MR lumbar spine from 02/06/2006. Findings There has been interval disc space loss at L4-L5 and L5-S1 secondary to degenerative disc disease. ??Vertebral body heights are maintained. No listhesis. ??The conus terminates at L1 and L2. No bone marrow signal abnormalities. T12-L1: ??No central canal or neural foraminal narrowing. L1-L2: ??No central canal or neural foraminal narrowing. L2-L3: ??No central canal or neural foraminal narrowing. L3-L4: No central canal narrowing. ??There is moderate left neural foraminal narrowing secondary to a new large foraminal and paracentral disc extrusion superimposed on broad-based disc bulge. ?? L4-L5: No central canal narrowing. There is bilateral moderate foraminal narrowing secondary to broad-based disc bulge, disc space loss, and facet arthropathy. L5-S1: There is a tiny central disc protrusion superimposed on broad-based disc bulge, without central canal narrowing. There is moderate bilateral neural foraminal narrowing neck secondary to disc space loss, and facet arthropathy. ?? Impression Advanced degenerative disc disease at L4 on L5 and L5-S1 with resulting moderate neural foraminal narrowing at these levels. New left paracentral and foraminal disc extrusion at the left L3-L4 with resulting moderate foraminal narrowing, which likely impacts the left L3 and L4 roots. Comment: The following findings are so common in people without low back pain that while we report their presence, they must be interpreted with caution and in the context of the clinical situation. (Reference-Patriciavik et al, Spine 2001) Findings: (prevalence in patients without low back pain), Disk degeneration (decreased T2 signal, height loss, bulge) (91%), Disk T2-signal loss (83%), Disk height loss (56%), Disk bulge (64%), Disk protrusion (32%), Annular fissure (38%). Film and interpretation reviewed by the attending Procedure Note Davin Jiménez MD - 07/22/2013 Examination MR Lumbar Spine WO Clinical History left sciatica Technique MR images were obtained of the lumbar spine without contrast. Comparison MR lumbar spine from 02/06/2006. Findings There has been interval disc space loss at L4-L5 and L5-S1 secondary to degenerative disc disease. Vertebral body heights are maintained. No listhesis. The conus terminates at L1 and L2. No bone marrow signal abnormalities. T12-L1: No central canal or neural foraminal narrowing. L1-L2: No central canal or neural foraminal narrowing. L2-L3: No central canal or neural foraminal narrowing. L3-L4: No central canal narrowing. There is moderate left neuralforaminal narrowing secondary to a new large foraminal and paracentral discextrusion superimposed on broad-based disc bulge. L4-L5: No central canal narrowing. There is bilateral moderate foraminal narrowing secondary to broad-based disc bulge, disc space loss, and facet arthropathy. L5-S1: There is a tiny central disc protrusion superimposed on broad-baseddisc bulge, without central canal narrowing. There is moderate bilateral neural foraminal narrowing neck secondary to disc space loss, and facetarthropathy. Impression Advanced degenerative disc disease at L4 on L5 and L5-S1 with resulting moderate neural foraminal narrowing at these levels. New left paracentral and foraminal disc extrusion at the left L3-L4 with resulting moderate foraminal narrowing, which likely impacts the left L3and L4 roots. Comment: The following findings are so common in people without low backpain that while we report their presence, they must be interpreted with cautionand in the context of the clinical situation. (Rupal-Jarvik et al, Oxyxt0084) Findings: (prevalence in patients without low back pain), Diskdegeneration (decreased T2 signal, height loss, bulge) (91%), Disk T2-signal loss(83%), Disk height loss (56%), Disk bulge (64%), Disk protrusion (32%), Annular fissure (38%). Film and interpretation reviewed by the attending Brenda Renee MD IMG MRI ORDERABLES documented in this encounter Visit Diagnoses Not on filedocumented in this encounter Care Teams Warehouse Representative Relationship Specialty Start Date End Date Brenda Renee MD [address] [place] [address] PCP - General 06/01/10 03/25/19 documented as of this encounter
--- OUTSIDE RECORDS SUMMARY | 2024-03-04 21:29 | XMS_ITS | Encounter Summary ---
[place] [address] Care Team Providers Care Cadet Deck Name Role Phone Luis E Narayan MD Primary Care Provider [phone] Encounter Details Date Type Department Care Team (Late Contact Info) Description 04/15/2019 Tele[place] [address] Ru Leon, RN Social History Tobacco Use Types Packs/Day [...] encounter Miscellaneous Notes * Telephone Encounter - Ru Leon, RN - 04/15/2019 12:13 PM EDT Spoke with Alize and she will got to [facility] for Metabolic lab testing. Orders faxed, dexamethazone ( 1 mg) Prescribed, and instructions mailed. All questions addressed at this time she will call withany further questions or concerns. documented in this encounter Plan of Treatment Upcoming Encounters Date Type Department Care Team (Late Contact Info) Description 03/20/2024 9:00 AM EDT TH Visit (TeleHealth) Sleep Center at [facility] [address] [place] [phone] Denisse Hardiwck, [email or web address] 03/20/2024 2:00 PM EDT Clinical Support Family Medicine at [facility] [address] [place] [address] Julia Low, [facility] 05/01/2024 11:20 AM EDT Appointment Mammography/[place] [address] Rodney Padilla MD [address] [place] [address] 05/01/2024 1:45 PM EDT Office Visit Ophthalmology at [place] [phone] Juanpablo Hernandez MD [facility] [place] [address] 01/30/2025 1:30 PM EDT Appointment Hematology and Oncology at [place] [phone] 01/30/2025 3:[address] Scan at [place] [phone] Arturo Cordero MD [facility] [place] [address] 01/30/2025 4:15 PM EDT Office Visit Hematology [place] [address] Arturo Cordero MD [facility] [place] [address] documented as of this encounter Visit Diagnoses Not on filedocumented in this encounter Care Teams Cadet Deck Relationship Specialty Start Date End Date Luis E Narayan MD NPI: [id number] [place] [address] [address] [place] [address] PCP - General Family Medicine 03/26/19 01/19/22 documented as of this encounter
--- OUTSIDE RECORDS SUMMARY | 2024-03-04 21:29 | XMS_ITS | Encounter Summary ---
Author Organization [facility] [place] [address] Care Team Providers Care Nautical Instrument Mechanic Name Role Phone Brenda Canchola MD Primary Care Provider Encounter Details Date Type Department Care Team (Late st Contact Info) Description 01/22/2019 Ancillary Procedure [place] [address] Luis E Narayan MD [facility] DR [address]IL[address] AZEVED[place] [address] Social History Tobacco Use Types Packs/Day Years [...] at [facility] [address] [place] [address] Denisse Hardwick [facility] 03/20/2024 2:00 PM EDT Clinical Support Family Medicine [facility] [address] [place] [address] Julia Low, [facility] 05/01/2024 11:20 AM EDT Appointment Mammography/DXA at [place] [phone] Rodney Padilla MD [address] [place] [address] 05/01/2024 1:45 PM EDT Office [place] [address] Juanpablo Hernandez MD [facility] [place] [address] 01/30/2025 1:30 PM EDT Appointment Hematology and Oncology at [place] [address] 01/30/2025 3:[address] [place] [address] Arturo Cordero MD [facility] DR HEMATOLOGY [place] [address] 01/30/2025 4:15 PM EDT Office Visit Hematology and Oncology at [place] [phone] Arturo Cordero MD [facility] DR HEMATOLOGY [place] [address] documented as of this encounter Procedures Procedure Name Priority Date/Time Associated Diagnosis Comments FILM LIBRARY STORAGE ONLY DX CHEST STAT 01/22/2019 12:00 AM EDT documented in this encounter Results * Film Library- Storage Only DX Chest (01/22/2019 12:00 AM EDT) Narrative [facility] - 03/28/2019 10:59 AM EDT This exam is auto-finalizing. It's purpose is for storage only. Luis E Narayan MD IMG FILM LIBRARY OR DERABLES Performing Organization Address City/State/[facility] [[email or web address]] Co de Phone Number [place], [place] documented in this encounter Visit Diagnoses Not on filedocumented in this encounter Care Teams Nautical Instrument Mechanic Relationship Specialty Start Date End Date Brenda Canchola MD [address] [place] [address] PCP - General 06/01/10 03/25/19 documented as of this encounter
--- OUTSIDE RECORDS SUMMARY | 2024-03-04 21:29 | XMS_ITS | Encounter Summary ---
Author Organization [facility] [place] [address] Care Team Providers Care Roll Cutter Name Role Phone Brenda Canchola MD Primary Care Provider [phone] Encounter Details Date Type Department Care Team (Late st Contact Info) Description 03/09/2016 Ancillary Procedure [place] [address] Luis E Narayan MD [facility] DR LIL[address] [place] [address] Social History Tobacco Use Types Packs/Day Years [...] [facility] [address] [place] [address] Denisse Hardwick [facility] 03/20/2024 2:00 PM EDT Clinical Support Family Medicine [facility] [address] [place] [address] Julia Low, [facility] 05/01/2024 11:20 AM EDT Appointment Mammography/[place] [address] Rodney Padilla MD [address] [place] [address] 05/01/2024 1:45 PM EDT Office [place] [address] Juanpablo Hernandez MD [facility] [place] [address] 01/30/2025 1:30 PM EDT Appointment Hematology and Oncology at [place] [address] 01/30/2025 3:[address] [place] [address] Arturo Cordero MD [facility] DR HEMATOLOGY [place] [address] 01/30/2025 4:15 PM EDT Office Visit Hematology and Oncology at [place] [phone] Arturo Cordero MD [facility] DR [place] [address] documented as of this encounter Procedures Procedure Name Priority Date/Time Associated Diagnosis Comments FILM LIBRARY STORAGE ONLY MAMMO Routine 03/09/2016 12:00 AM EDT documented in this encounter Results * Film Library- Storage Only Mammo (03/09/2016 12:00 AM EDT) Narrative [facility] - 05/24/2019 9:39 PM EST This exam is auto-finalizing. It's purpose is for storage only. Luis E Narayan MD IMG FILM LIBRARY OR DERABLES Performing Organization Address City/State/[facility] Co de Phone Number [place], [place] documented in this encounter Visit Diagnoses Not on filedocumented in this encounter Care Teams Roll Cutter Relationship Specialty Start Date End Date Brenda Canchola MD [address] [place] [address] PCP - General 06/01/10 03/25/19 documented as of this encounter
--- OUTSIDE RECORDS SUMMARY | 2024-03-04 21:29 | XMS_ITS | Encounter Summary ---
Author Organization [facility] [place] [address] Care Team Providers Care Herb Doctor Name Role Phone Luis E Narayan MD Primary Care Provider Encounter Details Date Type Department Care Team (Late Contact Info) Description 04/15/2019 [place] [address] Ru Leon, RN Social History Tobacco Use [...] Encounter - Ru Leon, RN - 04/15/2019 10:31 AM EDT Message left to call urology to discuss metabolic lab work up documented in this encounter Plan of Treatment Upcoming Encounters Date Type Department Care Team (Late Contact Info) Description 03/20/2024 9:00 AM EDT TH Visit (TeleHealth) Sleep Center at [facility] [address] [address] Denisse Hardwikc, [facility] 03/20/2024 2:00 PM EDT Clinical Support Family Medicine at [facility] [address] [place] [address] Julia Low [facility] 05/01/2024 11:20 AM EDT Appointment Mammography/DXA at [place] [phone] Rodney Padilla MD [address] [place] [address] 05/01/2024 1:45 PM EDT Office Visit Ophthalmology at [address] Juanpablo Hernandez MD [facility] [place] [address] 01/30/2025 1:30 PM EDT Appointment Hematology and Oncology at [address] 01/30/2025 3:[address] Scan at [address] Arturo Cordero MD [facility] [place] [address] 01/30/2025 4:15 PM EDT Office Visit Hematology and Oncology at [place] [phone] Arturo Cordero MD [facility] [place]AT[place] [address] documented as of this encounter Visit Diagnoses Not on filedocumented in this encounter Care Teams Herb Doctor Relationship Specialty Start Date End Date Luis E Narayan MD [facility] DR [address]IL[address] [place] [address] PCP - General Family Medicine 03/26/19 01/19/22 documented as of this encounter
--- OUTSIDE RECORDS SUMMARY | 2024-03-04 21:29 | XMS_ITS | Encounter Summary ---
Author Organization Formerly [facility] [place] [address] Care Team Providers Care Administrative Supervisor Name Role Phone Brenda Canchola MD Primary Care Provider [phone] Encounter Details Date Type Department Care Team (Late st Contact Info) Description 09/22/2011 Ancillary Procedure [place] [address] Luis E Narayan MD [facility] [address] [address] Social History Tobacco Use Types Packs/Day Years [...] [facility] [address] [place] [phone] Denisse Hardwick [facility] 03/20/2024 2:00 PM EDT Clinical Support Family Medicine [facility] [address] [place] [id number] Julia Low, [facility] 05/01/2024 11:20 AM EDT Appointment Mammography/[place] [address] Rodney Padilla MD [address] [place] [address] 05/01/2024 1:45 PM EDT Office [place] [address] Juanpablo Hernandez MD [facility] [place] [address] 01/30/2025 1:30 PM EDT Appointment Hematology and Oncology at [place] [address] 01/30/2025 3:[address] [place] [address] Arturo Cordero MD [facility] DR HEMATOLOGY [place] [address] 01/30/2025 4:15 PM EDT Office Visit Hematology and Oncology at [place] [id number] Arturo Cordero MD [facility] [place] [address] documented as of this encounter Procedures Procedure Name Priority Date/Time Associated Diagnosis Comments FILM LIBRARY STORAGE ONLY MAMMO Routine 09/22/2011 12:00 AM EDT documented in this encounter Results * Film Library- Storage Only Mammo (09/22/2011 12:00 AM EDT) Narrative [facility] - 05/24/2019 9:45 PM EST This exam is auto-finalizing. It's purpose is for storage only. Luis E Narayan MD IMG FILM LIBRARY OR DERABLES Performing Organization Address City/State/[facility] Co de Phone Number [place], [place] documented in this encounter Visit Diagnoses Not on filedocumented in this encounter Care Teams Administrative Supervisor Relationship Specialty Start Date End Date Brenda Canchola MD [address] [place] [address] PCP - General 06/01/10 03/25/19 documented as of this encounter
--- OUTSIDE RECORDS SUMMARY | 2024-03-04 21:29 | XMS_ITS | Encounter Summary ---
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 Role Phone Luis E Narayan MD Primary Care Provider Reason for Referral * Consultation (Urgent) - Closed Specialty Diagnoses / Procedures Referred By Contac t Referred To Contact Urology Diagnoses Renal mass Elpidio Pinedo IV, MD [facility] [place] [address] [facility] [place] [address] Referral ID Status Reason Start Date Expiration Date V isits Requested Visits Authorized [id number] Closed Consult, Test & Treat 03/26/2019 03/25/2020 1 1 * Consultation (Urgent) - Closed Specialty Diagnoses / Procedures Referred By Contac t Referred To Contact Neurology Diagnoses Generalized weakness Elpidio Pinedo IV, MD [facility] [place] [address] [facility] Neurology [address] [place] [address] Referral ID Status Reason Start Date Expiration Date V isits Requested Visits Authorized [id number] Closed Consult, Test & Treat 03/26/2019 03/25/2020 1 1 Reason for Visit * Reason Comments Edema Encounter Details Date Type Department Care Team (Late st Contact Info) Description 03/26/2019 8:40 PM EDT - 03/27/2019 2:36 AM EDT Emergency Emergency Department Formerly [facility] [place] [address] Avila Farnsworth MD [facility] [place] [address] Generalized weakness; Other specified diabetes mellitus with diabetic neuropathy, unspecified whether terminal supervisor insulin use; Renal mass Discharge Disposition: Home Social History [...] Sign Reading Time Taken Comments Blood Pressure 164/96 03/27/2019 2:34 AM EDT Pulse 75 03/27/2019 2:34 AM EDT Temperature 36.8 ??C (98.2 ??F) 03/27/2019 2:34 AM ED T Respiratory Rate 16 03/27/2019 2:34 AM EDT Oxygen Saturation 97% 03/27/2019 2:34 AM EDT Inhaled Oxygen Concentration - - Weight 104.3 kg (230 lb) 03/26/2019 8:14 PM EDT Height 160 cm (5' 3) 03/26/2019 8:14 PM EDT Body Mass Index 40.74 03/26/2019 8:14 PM EDT documented in this encounter Discharge Instructions * Discharge Instructions* Avila Farnsworth MD - 03/27/2019 2:27 AM EDT You were seen today for evaluation of your recent symptoms. I placed referrals to neurology and urology call you in the next 3 to 4 days to schedule an appointment. I recommended that you avoid or cut down significantly on your cigarette use, continue to drink lots of clear fluids and follow-up with the subspecialist teams for further work-up. Your MRI results are pending. We will update you on the results but you do not need to stay in the ED for them to be finalized. We gave you follow up with neurology as well. Please take all of your medications as scheduled. Return the Emergency room if you experience chest pain, difficulty breathing, loss of consciousness, fevers over 100.4F or any other concerns. documented in this encounter Medications at Time of Discharge Medication Sig Dispensed Refills Start Date End Date amLODIPine (NORVASC) 5 mg Tablet Take 5 mg by mouth daily. 4 02/12/2019 04/09/2019 simvastatin (ZOCOR) 10 mg Tablet Take 10 mg by mouth daily. 4 11/26/2018 04/09/2019 fluticasone propionate (FLONASE) 50 mcg/actuation [place], Suspension 50 sprays by Each Nare route 2 times daily. 0 01/27/2019 04/09/2019 loratadine (CLARITIN) 10 mg Tablet Take 10 mg by mouth daily. 0 01/27/2019 04/09/2019 gabapentin (NEURONTIN) 100 mg capsuleIndications:nathaniel ropathic pain [...] as of this encounter ED Notes * Samuel Garcia RN - 03/26/2019 10:19 PM EDT Pt transported to [facility] via tech. * Elpidio Pinedo IV - 03/26/2019 8:59 PM EDT ED Resident Note Alize Gramajo is an 58 y.o. female who presents to the ED with: weakness, fatigue I saw this patient at: 8:59 PM HPI Alize Gramajo is a 58 y.o. female with hx of HTN, CAD, HLD, DM II presents with complaints of exhaustion, weakness generalized, and frustration with her medical care so far. 01/23-01/27 admitted to [place], discharged on prednisone taper and then sought care at [facility] where she had CT scans done showing left kidney cyst that was concerning for possible malignancy, and a likely benign pulmonary nodule, and recommended surveillance. The patient was very upset with this decision, and feels that she may have cancer due to her brother passing away and Rachana of aggressive metastatic renal carcinoma, and the fact that she has had weakness, fatigue, neuropathy, difficulty with balance, seeing blue colors when she gets overly stressed, and also having difficulty finding words when she is very stressed. She feels that her blood pressure is through the roof and that everything is going wrong and no one will listen to me and requests MRI, and blood testing for MS. Review of Systems: Pertinent positives and negatives are included in the history of present illness, otherwise 10 systems are reviewed and negative PMH, PSH, MEDICATIONS and SH were all reviewed in the chart Physical Exam: Temp: [36.7 ??C (98.1 ??F)] Heart Rate: [80] Resp: [20] BP: (185)/(96) SpO2: [97 %] Heart Rate from SpO2: -- Physical Exam Constitutional: She is oriented to person, place, and time. She appears well- developed and well-nourished. She appears distressed. Tearful on exam HENT: Head: Normocephalic and atraumatic. Right Ear: External ear normal. Left Ear: External ear normal. Nose: Nose normal. Mouth/Throat: Oropharynx is clear and moist. No oropharyngeal exudate. Eyes: Pupils are equal, round, and reactive to light. Conjunctivae and EOM are normal. Right eye exhibits no discharge. Left eye exhibits no discharge. No scleral icterus. Left eye with conjunctival hemorrhage, chronic Neck: No JVD present. No tracheal deviation present. Cardiovascular: Normal rate, regular rhythm, normal heart sounds and intact distal pulses. Exam reveals no gallop and no friction rub. No murmur heard. Pulmonary/Chest: Effort normal and breath sounds normal. No stridor. No respiratory distress. She has no wheezes. She has no rales. She exhibits no tenderness. Abdominal: Soft. She exhibits no distension. There is no tenderness. There is no guarding. Musculoskeletal: Normal range of motion. She exhibits edema (2+ b/l pretibial). She exhibits no tenderness or deformity. Neurological: She is alert and oriented to person, place, and time. No cranial nerve deficit or sensory deficit. She exhibits normal muscle tone. Coordination normal. Skin: Skin is warm and dry. Capillary refill takes less than 2 seconds. No rash noted. No erythema.No pallor. Nursing note and vitals reviewed. Labs: I have reviewed the labs and imaging and they are significant for: Last 3 wbc, hgb, hct plt Recent Labs 02/14/194 WBC 7.2 HGB 12.0 HCT 36.3 PLATELET 366* Last 3 Lytes Recent Labs 02/14/19 2254 NA 140 K 3.9 CL 102 CO2 28 BUN 11 CREATININE 0.76 Imaging: MRI Brain wwo Contrast (Generic) (Results Pending) ED Course: ED Course as of Mar 26 2059 Tue Mar 26, 20192055 BP(!): 185/96 2055 Temp: 36.7 ??C (98.1 ??F) 2055 Heart Rate: 80 2055 Resp: 20 2055 SpO2: 97 % 2055 Pain Level: 5 Assessment and Plan: Assessment: 58 y.o. female with hx of HTN, CAD, HLD, DM II presents with complaints of exhaustion, weakness generalized, and frustration with her medical care so far. Patient is concerned she has MS and requests testing. The patient is very emotional during time of exam and giving history which makes it difficult to discern which symptoms are most concerning for her. The patient complains of difficulty with balance, burning-like pains, which all could be attributed to diabetic neuropathy. The patient describes that when she was placed on prednisone, she became irritable, began retaining fluids, and was not able to sleep. She feels that some of those symptoms still linger she finished her taper only in the last week or so, and some of these symptoms may be residual steroids. The patient's diabetes and hypertension likely play a role in addition to all of her stress which could be manifesting itself with the symptoms and preoccupation of her possible malignancy being metastatic for rona canales, but work-up has not been completed yet. Reordered an MRI of the patient's brain to rule out MS or metastatic disease, and lab work to make sure that the patient's electrolytes function appear normal. I signed the patient out to the oncoming team who agreed to follow-up on the MRI and determine patient disposition. Elpidio Pinedo IV, MD Resident 03/26/19 2512 Associated attestation - Avila Farnsworth MD - 03/27/2019 3:39 PM EDT ED ATTENDING ATTESTATION The patient was seen in conjunction with Dr. Pinedo, the resident physician. I have independently performed the smith portions of the history and physical exam. I have reviewed all diagnostic studies personally including labs, imaging studies and EKGs. I have discussed the details of the case with theresident and agree with the assessment and plan as described in the resident note above unless noted in my separate note. MDM: Elderly female with concerns for irritability, exhaustion and unable to f/u with PCP. Requesting MRI for MS. ED team had long discussion about low suspicion for MS given no focal neurologic findings on exam. Pt does not have PCP and has had multiple return ED visits for various neurologic and psychosocial complaints including concerns about stroke, MS, cancer. She was recently on prednisone whichour team explained can contribute to some of the odd neurologic and behavioral effects that she hasbeen experiencing. An MRI was performed to rule out large MS lesion vs stroke. Pt was discharged prior to MRI result. She was given neurologic follow up from the ED for further outpatient management of her symptoms and further interpretation of imaging from the ED. She states that she understands this plan and feels comfortable at time of discharge. She has no focal deficits on serial neurologic examinations in the ED. Will discharge. * Samuel Garcia RN - 03/26/2019 8:45 PM EDT Patient states she has been having multiple symptoms of MS over the past couple of months. pt states she has been seeing her pcp for symptoms but has not had any tests performed. Pt here tonight totry and get a better work-up for symptoms because she has been having better luck with an emergencydepartment near where she lives. Pt states she also needs a biopsy of a growth on her left kidney. documented in this encounter Miscellaneous Notes * ED Triage - Gail Almazan RN - 03/26/2019 8:18 PM EDT Pt arrives ambulatory with steady gait. A&Ox4 speaking in full sentences. Pt reports symptoms for multiple months. Reports being admitted twice. Here tonight because she believes she has MS. Reports incontinence of urine and stool that started in the last month. Pt endorses word searching whichshe has had for months, has not gotten worse. Reports BLE edema. Worsening leg and hand pain. Respirations even and non labored. Skin p/w/d. NAD at this time. documented in this encounter Plan of Treatment Upcoming Encounters Date Type Department Care Team (Late st Contact Info) Description 03/20/2024 9:00 AM EDT TH Visit (TeleHealth) Sleep Center at [facility] [address] [place] [address] Denisse Hardwick, [facility] 03/20/2024 2:00 PM EDT Clinical Support Family Medicine at [facility] [address] [place] [id number] Julia Low [facility] 05/01/2024 11:20 AM EDT Appointment Mammography/[place] [address] Rodney Padilla MD [address] [place] [address] 05/01/2024 1:45 PM EDT Office Visit Ophthalmology at [place] [phone] Juanpablo Hernandez MD [facility] [place] [address] 01/30/2025 1:30 PM EDT Appointment Hematology [place] [address] 01/30/2025 3:[address] Scan at [place] [phone] Arturo Cordero MD [facility] [place] [address] 01/30/2025 4:15 PM EDT Office Visit Hematology [place] [address] Arturo Cordero MD [facility] [place] [address] Scheduled Referrals Name Type Priority Associated Diagnoses Orde r Schedule Referral to Neurology Outpatient Referral Routine Generalized weakness Ordered: 03/26/2019 Referral to Urology Outpatient Referral Routine Renal mass Ordered: 03/26/2019 documented as of this encounter Procedures Procedure Name Priority Date/Time Associated Diagnosis Comments MRI BRAIN WWO CONTRAST (GENERIC) STAT 03/26/2019 10:54 PM EDT HC ALCOHOL, BLOOD STAT 03/26/2019 10: 10 PM EDT HEMOGRAM STAT 03/26/2019 9:53 PM EDT DIFFERENTIAL, AUTOMATED STAT 03/26/2019 9:53 PM EDT GOLD TUBE HOLD STAT 03/26/2019 9:53 PM EDT BLUE TUBE HOLD STAT 03/26/2019 9:53 PM EDT HC CBC,PLT & AUTO DIFF STAT 03/26/2019 9:53 PM EDT HC TROPONIN T STAT 03/26/2019 9:53 PM EDT HC PROBNP STAT 03/26/2019 9:53 PM EDT HC HEMOGLOBIN A1C STAT 03/26/2019 9:5 3 PM EDT BASIC METABOLIC PANEL STAT 03/26/2019 9:53 PM EDT RAPID DRUG SCREEN, URINE STAT 03/26/2019 9:49 PM EDT RAPID DRUG SCREEN W/O CONFIRMATION, URINE STAT 03/26/2019 9:49 PM EDT URINALYSIS WITH REFLEX CULTURE STAT 03/26/2019 9:49 PM EDT documented in this encounter Results * MRI Brain wwo Contrast (Generic) (03/26/2019 10:54 PM EDT) Anatomical Region Laterality Modality Head Magnetic Resonan ce Impressions 03/27/2019 3:48 AM EDT Scattered periventricular and subcortical white matter foci without restricted diffusion or enhancement. Findings are indeterminate with broad differential which includes small inactive demyelinating lesions, chronic small vessel ischemic changes from microangiopathy, hypertension or migraines, or even inflammation from vasculitides or other inflammatory/inflammatory processes. I have personally reviewed the image(s) and the residents interpretation and agree with the findings, Diana Ratliff at 03/27/2019 3:48 AM Thank you for letting us participate in the care of this patient. For questions regarding this report, please contact the number below. ? Narrative 03/27/2019 3:48 AM EDT EXAMINATION: MRI BRAIN WWO CONTRAST (GENERIC) CLINICAL HISTORY: hx of many symptoms concerned for MS, also has strong family hx of cancer TECHNIQUE: MRI of the brain was performed before and after the intravenous administration of 20cc Dotarem. COMPARISON: CT head 10/28/2007 Nuclear medicine cerebral perfusion scan from January 08 2008 FINDINGS: There is no intracranial hemorrhage or extra-axial collection. There is no restricted diffusion. There is no enhancing mass or mass effect. Normal appearance of the cortex with no restricted diffusion to suggest acute infarct. There are a few scattered predominantly T2 FLAIR hyperintense foci in the periventricular and subcortical white matter without restricted diffusion or enhancement. No surrounding edema. Ventricles are normal and symmetric. Basal cisterns are patent. Orbits are normal. No calvarial abnormality. ?? Procedure Note Diana Ratliff MD - 03/27/2019 EXAMINATION: MRI BRAIN WWO CONTRAST (GENERIC) CLINICAL HISTORY: hx of many symptoms concerned for MS, also has strongfamily hx of cancer TECHNIQUE: MRI of the brain was performed before and after the intravenousadministration of 20cc Dotarem. COMPARISON: CT head 10/28/2007 Nuclear medicine cerebral perfusion scan from January 08 2008 FINDINGS: There is no intracranial hemorrhage or extra-axial collection. There isno restricted diffusion. There is no enhancing mass or mass effect. Normal appearance of the cortex with no restricted diffusion to suggest acuteinfarct. There are a few scattered predominantly T2 FLAIR hyperintense foci inthe periventricular and subcortical white matter without restricted diffusionor enhancement. No surrounding edema. Ventricles are normal and symmetric. Basal cisterns are patent. Orbitsare normal. No calvarial abnormality. IMPRESSION Scattered periventricular and subcortical white matter foci withoutrestricted diffusion or enhancement. Findings are indeterminate with broaddifferential which includes small inactive demyelinating lesions, chronic smallvessel ischemic changes from microangiopathy, hypertension or migraines, oreven inflammation from vasculitides or other inflammatory/inflammatoryprocesses. I have personally reviewed the image(s) and the residents interpretationand agree with the findings, Diana Ratliff at 03/27/2019 3:48 AM Thank you for letting us participate in the care of this patient. Forquestions regarding this report, please contact the number below. Vaughn Boone MD IMG MRI ORDERABLES * Ethanol Level (03/26/2019 10:10 PM EDT) Ethanol <100 <=99 mg/L [facility] Comment: Greater than 800 mg/L (0.08%) should be considered intoxicated. 3400 to 4500 mg/L (0.34 - 0.45%) is considered severe intoxication. Greater than 5500 mg/L (0.55%) is usually fatal. Blood specimen (specimen) 03/26/2019 10:10 PM EDT 03/26/2019 10:18 PM EDT Narrative Resulting Agency Comment Spec In Lab Vaughn Boone MD CHEMISTRY ORDERABLES [facility] [place] [address] * Gold Tube HOLD (03/26/2019 9:53 PM EDT) Pathologist [facility] Gold Hold Sample in lab. [facility] Blood specimen (specimen) Venous Draw / Unknown 03/26/2019 9:53 PM EDT 03/26/2019 10:04 PM EDT Elpidio Pinedo IV, MD CHEMISTRY ORDERABLE S Performing Organization Address [facility] Co de Phone Number [facility] [place] [address] * Blue Tube HOLD (03/26/2019 9:53 PM EDT) [facility] Blue Hold Sample in lab. [facility] Blood specimen (specimen) Venous Draw / Unknown 03/26/2019 9:53 PM EDT 03/26/2019 10:04 PM EDT Elpidio Pinedo IV, MD HEMATOLOGY ORDERABL ES Performing Organization Address [facility] Co de Phone Number [facility] [place] [address] * Differential, Automated (03/26/2019 9:53 PM EDT) [facility] Neutrophil % 57.9 % [facility] Neutrophil Absolute 5.86 1.70 - 6.10 x10(3)/[facility] Lymph % 30.9 % [facility] Lymphocytes Abs 3.1 0.9 - 3.2 x10(3)/[facility] Monocyte % 8.2 % [facility] Monocyte Abs 0.8 0.3 - 0.9 x10(3)/[facility] Eos % 2.1 % [facility] Eosinophils Abs 0.2 0.0 - 0.4 x10(3)/[facility] Basophil % 0.7 % [facility] Baso Absolute 0.1 0.0 - 0.1 x10(3)/[facility] Immature Gran % 0.20 % [facility] Comment: Immature granulocytes(IG's)percentage and absolute count will include metamyelocytes, myelocytes, and promyelocytes. Blood smears from CBCs yielding IG's will be scanned manually for concordance. If this scan disagrees with the automated IG or if promyelocytes are noted, a manual differential will be performed. Immature Gran Absolute 0.02 0.00 - 0.04 x10(3)/[facility] Blood specimen (specimen) 03/26/2019 9:53 PM EDT 03/26/2019 10:03 PM EDT Narrative Resulting Agency Comment Spec In Lab Elpidio Pinedo IV, MD HEMATOLOGY ORDERABL ES [facility] [place] [address] * (ABNORMAL) Hemogram (03/26/2019 9:53 PM EDT) White Blood Cell 10.1(H) 4.0 - 9.5 x10(3)/[facility] Red Blood Cell 4.65 4.00 - 5.21 x10(6)/[facility] Hemoglobin 13.6 11.7 - 15.5 gm/dL [facility] Hematocrit 40.1 35.7 - 45.8 % [facility] Mean Cell Volume 86.2 82.6 - 94.4 [facility] Mean Cell Hemoglobin 29.2 27.1 - 32.[address] [facility] Mean Cell Hemoglobin Concentration 33.9 31.7 - 35.0 gm/dL [facility] Platelet 458(H) 145 - 357 x10(3)/[facility] RDW Standard Deviation 45.4 37.0 - 46.0 [facility] RDW coefficient of variation 14.4(H) 11.5 - 14.1 % [facility] Mean Platelet Volume 9.4 7.6 - 12.9 [facility] NRBC% auto 0.0 % [facility] NRBC Absolute 0.000 0.000 - 0.000 x10(3)/[facility] Blood specimen (specimen) 03/26/2019 9:53 PM EDT 03/26/2019 10:03 PM EDT Narrative Resulting Agency Comment Spec In Lab Elpidio Pinedo IV, MD HEMATOLOGY ORDERABL ES [facility] [place] [address] * (ABNORMAL) Hemoglobin A1c (03/26/2019 9:53 PM EDT) Hemoglobin A1c 8.0(H) 4.3 - 5.6 % [facility] [...] 36: Suppl. 1, S67-87 Estimated Average Glucose 183 mg/dL [facility] Comment: eAG [...] into estimated average glucose values. ??Diabetes Care 2008:31(8):6300-5425. Blood specimen (specimen) 03/26/2019 9:53 PM EDT 03/26/2019 10:03 PM EDT Narrative Resulting Agency Comment Spec In Lab Vaughn Boone MD CHEMISTRY ORDERABLES Performing Organization Address [facility] Co de Phone Number [facility] [place] [address] * pro-Brain Natriuretic Peptide (03/26/2019 9:53 PM EDT) NT-proBNP 108 <=125 pg/mL [facility] Blood specimen (specimen) 03/26/2019 9:53 PM EDT 03/26/2019 10:03 PM EDT Narrative Resulting Agency Comment Spec In Lab Vaughn Boone MD CHEMISTRY ORDERABLES Performing Organization Address [facility] Co de Phone Number [facility] [place] [address] * Troponin (03/26/2019 9:53 PM EDT) Troponin-T <0.01 0.00 - 0.00 ng/mL [facility] Comment: The 99th percentile for Troponin T is less than 0.01 ng/mL, any detectable cTnT concentration using this assay should be considered elevated. According to the third universal definition of myocardial infarction the following criteria with a clinical presentation consistent with acute myocardial ischemia meets the diagnosis for a myocardial infarction (CA). Detection of a rise and/or fall of cTnT, with at least one value greater than the 99th percentile (> or = 0.01) and with at least one of the following ?? Symptoms of ischemia ?? New or presumed new significant MA-larzrhf-D wave (ST-T) changes or new left bundle [...] additional sample may be indicated. Reference: Third [place] Definition of Myocardial Infarction. Journal of the [place] [employer] 2012;60:1581-98 Blood specimen (specimen) 03/26/2019 9:53 PM EDT 03/26/2019 10:03 PM EDT Narrative Resulting Agency Comment Spec In Lab Vaughn Boone MD CHEMISTRY ORDERABLES [facility] [place] [address] * (ABNORMAL) Basic Metabolic Panel (non-fasting) (03/26/2019 9:53 PM EDT) Glucose 131 65 - 199 mg/dL [facility] Comment:Diabetes: >=200 mg/d L plus symptoms Blood Urea Nitrogen 13 8 - 18 mg/dL [facility] Creatinine 0.68(L) 0.70 - 1.20 mg/dL [facility] Sodium 142 135 - 145 mmol/L [facility] Potassium 3.7 3.5 - 5.0 mmol/L [facility] Comment: Please note: ??Patients with WBC >100,000 may have falsely elevated Potassium levels. ??For accurate Potassium quantification in these patients send serum separator tube (gold top) for subsequent determinations. ??Contact the Clinical Chemistry Laboratory if there are any questions. Chloride 103 98 - 107 mmol/L [facility] Carbon Dioxide 26 22 - 31 mmol/L [facility] Anion Gap 13 5 - 15 mmol/L [facility] Calcium 9.9 8.5 - 10.5 mg/dL [facility] Est Glomerular Filtration Rate 96 >=60 mL/min/1. 73 m?? [facility] Comment: The eGFR was calculated using the CKD-EPI equation. As with all creatinine based estimates of kidney function, eGFR values calculated with the CKD-EPI equation are not accurate in patients with acute kidney failure, extremes of body mass or the acutely ill. http://[email or web address] eGFR 111 >=60 mL/min/1. 73 m?? [facility] Comment: The eGFR was calculated using the CKD-EPI equation. As with all creatinine based estimates of kidney function, eGFR values calculated with the CKD-EPI equation are not accurate in patients with acute kidney failure, extremes of body mass or the acutely ill. [email or web address] Blood specimen (specimen) 03/26/2019 9:53 PM EDT 03/26/2019 10:03 PM EDT Narrative Resulting Agency Comment Spec In Lab Vaughn Boone MD CHEMISTRY ORDERABLES [facility] [place] [address] * (ABNORMAL) Rapid Drug Screen w/o Confirmation, Urine (03/26/2019 9:49 PM EDT) Barbiturates Screen, Urine None Detected None Detected [facility] Comment: The barbiturate screen detects barbiturates at concentrations >200 ng/mL. Note: Not all barbiturates cross-react equally with antibody used in this screen. A ? Presumptive Positive? result indicates that the screening result was positive but has not yet been confirmed by a highly-specific method. As with any screen, occasional false positive results from cross-reacting substances may occur. Not for Medico-Legal Purposes. Benzodiazepines Screen, Urine None Detected None Detected [facility] Comment: The benzodiazepines screen detects benzodiazepines at concentrations >100 ng/mL. Not all benzodiazepines cross-react equally with antibody used in this screen. Due to the low dosage of clonazepam, false negatives may be obtained due to low concentration of clonazepam metabolites. A ? Presumptive Positive? result indicates that the screening result was positive but has not yet been confirmed by a highly-specific method. As with any screen, occasional false positive results from cross-reacting substances may occur. Not for Medico-Legal Purposes. Cocaine Screen, Urine None Detected None Detected [facility] Comment: The cocaine metabolites screen detects benzoylecgonine (Cocaine Metabolite) at concentrations >150 ng/mL. A ? Presumptive Positive? result indicates that the screening result was positive but has not yet been confirmed by a highly-specific method. As with any screen, occasional false positive results from cross-reacting substances may occur. Not for Medico-Legal Purposes. Methadone Metabolites Screen, Urine None Detected None Detected [facility] Comment: The methadone metabolite screen detects EDDP (major methadone metabolite) at concentrations >100 ng/mL. A ? Presumptive Positive? result indicates that the screening result was positive but has not yet been confirmed by a highly-specific method. As with any screen, occasional false positive results from cross-reacting substances may occur. Not for Medico-Legal Purposes. Opiate Screen, Urine None Detected None Detected [facility] Comment: The opiates screen detects opiates at concentrations >300 ng/mL. Please note that oxycodone, oxymorphone, fentanyl, tramadol, and other synthetic opioids are not detected by the opiate screen. A ? Presumptive Positive? result indicates that the screening result was positive but has not yet been confirmed by a highly-specific method. As with any screen, occasional false positive results from cross-reacting substances may occur. Not for Medico-Legal Purposes. Cannabinoid Screen, Urine Presumptive Pos(A) None Detected [facility] Comment: The marijuana metabolites screen detects the THC metabolite (13-lyk-9-carboxy-delta 9-THC) at concentrations >20 ng/mL. A ? Presumptive Positive? result indicates that the screening result was positive but has not yet been confirmed by a highly-specific method. As with any screen, occasional false positive results from cross-reacting substances may occur. Not for Medico-Legal Purposes. Oxycodone Screen, Urine None Detected None Detected [facility] Comment: The oxycodone screen detects oxycodone and oxymorphone at concentrations >100 ng/mL. A ? Presumptive Positive? result indicates that the screening result was positive but has not yet been confirmed by a highly-specific method. As with any screen, occasional false positive results from cross-reacting substances may occur. Not for Medico-Legal Purposes. Buprenorphine Screen, Urine None Detected None Detected [facility] Comment: The buprenorphine screen detects buprenorphine at concentrations >5 ng/mL. A ? Presumptive Positive? result indicates that the screening result was positive but has not yet been confirmed by a highly-specific method. As with any screen, occasional false positive results from cross-reacting substances may occur. Not for Medico-Legal Purposes. Fentanyl Screen, Urine None Detected None Detected [facility] Comment: The fentanyl screen detects fentanyl at concentrations >2 ng/mL. A ? Presumptive Positive? result indicates that the screening result was positive but has not yet been confirmed by a highly-specific method. As with any screen, occasional false positive results from cross-reacting substances may occur. Not for Medico-Legal Purposes. Tricyclics Screen, Urine None Detected None Detected [facility] Comment: The tricyclics screen detects tricyclic antidepressants at concentrations >150 ng/mL. Not all tricyclics cross-react equally with the antibody used in this screen. A ? Presumptive Positive? result indicates that the screening result was positive but has not yet been confirmed by a highly-specific method. As with any screen, occasional false positive results from cross-reacting substances may occur. Not for Medico-Legal Purposes. Ethanol Screen, Urine None Detected None Detected [facility] Comment:This urine ethanol a ssay detects ethanol at concentrations >/= 100 mg/L. Amphetamines Screen, Urine None Detected None Detected [facility] Comment: The amphetamine screen detects d-amphetamine and d-methamphetamine at concentrations >300 ng/mL. A ? Presumptive Positive? result indicates that the screening result was positive but has not yet been confirmed by a highly-specific method. As with any screen, occasional false positive results from cross-reacting substances may occur. Not for Medico-Legal Purposes. Adulterants Screen, Urine None Detected None Detected [facility] Comment: No adulteration or dilution of this urine sample was detected. All urine samples submitted for urine drugs of abuse analysis are tested for creatinine concentration, pH, and for the presence of oxidants, nitrites, and chromate. Urine specimen (specimen) 03/26/2019 9:49 PM EDT 03/26/2019 10:12 PM EDT Narrative Resulting Agency Comment Spec In Lab Elpidio Pinedo IV, MD CHEMISTRY ORDERABLE S Performing Organization Address City/[facility]/ZIP Co de Phone Number [facility] [place] [address] * Rapid Drug Screen, Urine (RODRIGUEZ Request) (03/26/2019 9:49 PM EDT) RODRIGUEZ Conf Requested No [facility] RODRIGUEZ Requested See Comment [facility] Comment:Refer to Rapid Drug Screen w/o Confirmation, Urine for results. Urine specimen (specimen) 03/26/2019 9:49 PM EDT 03/26/2019 10:12 PM EDT Narrative Resulting Agency Comment Spec In Lab Vaughn Boone MD URINE ORDERABLES Performing Organization Address [facility]/ZIP Co de Phone Number [facility] [place] [address] * Urinalysis with reflex Culture (03/26/2019 9:49 PM EDT) Glucose, Urine Dipstick Negative Negative mg/dL [facility] Protein, Urine Dipstick Negative Negative mg/dL [facility] Bilirubin, Urine Dipstick Negative Negative mg/dL [facility] Comment: Clinical correlation required for positive Urine Bilirubin results as false positive may occur with some drugs and drug related products. If a false positive is suspected a serum total bilirubin should be considered if clinically indicated. Urobilinogen, Urine Dipstick Normal Normal mg/dL [facility] pH, Urn (dipstick) 6.0 5.0 - 8.0 [facility] Blood, Urine Dipstick Negative Negative mg/dL [facility] Ketone, Urine Dipstick Negative Negative mg/dL [facility] Nitrite, Urine Dipstick Negative Negative [facility] Leukocytes, Urine Dipstick Negative Negative [facility] Appearance, Urine Dipstick Clear Clear [facility] Specific Ty Ty Urine Automated 1.013 1.002 - 1.030 [facility] Color, Urine Dipstick Yellow Yellow [facility] Reflex to Culture No [facility] Urine specimen obtained by clean catch procedure (specimen) 03/26/2019 9:49 PM EDT 03/26/2019 10:12 PM EDT Narrative Resulting Agency Comment Spec In Lab Vaughn Boone MD URINE ORDERABLES [facility] [place] [address] documented in this encounter Visit Diagnoses Diagnosis Generalized weakness Other malaise and fatigue Other specified diabetes mellitus with diabetic neuropathy, unspecified whether terminal supervisor insulin use Renal mass Unspecified disorder of kidney and ureter documented in this encounter Administered Medications Inactive Administered Medications - up to 3 most recent administrations Medication Order MAR Action Action Date Dose Rate Site gadoterate meglumine (DOTAREM) 0.5 mmol/mL (376.9 mg/mL) injection 0-100 mL 0-100 mL, Intravenous, ONCE PRN, 1 dose, Starting on Mon03/26/19 at 2254, Until Mon03/26/19 at 2240, Per Protocol, Radiology Contrast, Routine Given 03/26/2019 10:40 PM EDT 20 mLs documented in this encounter Active and Recently Administered Medications Times are shown in EDT. PRN Medication Order 03/25/2019 03/26/2019 03/27/2019 gadoterate meglumine (DOTAREM) 0.5 mmol/mL (376.9 mg/mL) injection 0-100 mL (COMPLETED) 0-100 mL, Intravenous, ONCE PRN, 1 dose, Starting on Mon03/26/19 at 2254, Until Mon03/26/19 at 2240, Per Protocol, Radiology Contrast, Routine 2240 (Given - Provider: Star Sepulveda) documented in this encounter Care Teams Turning Machine Operator Helper Relationship Specialty Start Date End Date Luis E Narayan MD [facility] [address] [place] [address] PCP - General Family Medicine 03/26/19 01/19/22 documented as of this encounter
--- OUTSIDE RECORDS SUMMARY | 2024-03-04 21:29 | XMS_ITS | Encounter Summary ---
Author Organization Formerly [facility] [place] [address] Care Team Providers Care Well Head Pumper Name Role Phone Luis E Narayan MD Primary Care Provider Reason for Referral * Consultation (Routine) - Closed Specialty Diagnoses / Procedures Referred By Gonzalez kumari Referred To Contact Endocrinology Diagnoses Type 2 diabetes mellitus with hyperglycemia, without long-term current use of insulin Luis E Narayan MD [facility] [place] [address] [facility]ocrinology [address] [place] [phone] Referral ID Status Reason Start Date Expiration Date V isits Requested Visits Authorized [id number] Closed Consult, Test & Treat 05/10/2019 05/09/2020 1 1 * Psychiatric (Routine) - Duplicate Referral Specialty Diagnoses / Procedures Referred By Gonzalez kumari Referred To Contact Psychiatry Diagnoses Altered mental status, unspecified altered mental status type Abnormal MRI of head Luis E Narayan MD [facility] [place] [address] [facility] Psychiatry [address] [place] [phone] Referral ID Status Reason Start Date Expiration Date Visits Requested Visits Authorized [id number] Duplicate Referral Consult, Test & Treat 05/10/2019 05/09/2020 1 1 Reason for Visit * Reason Comments Follow-up Encounter Details Date Type Department Care Team (Late st Contact Info) Description 05/10/2019 1:00 PM EDT Office Visit Family Medicine at [facility] [address] [place] [phone] Luis E Narayan MD [facility] [place] [address] Altered mental status, unspecified altered mental status type; Abnormal MRI of head; Type 2 diabetes mellitus without long-term current use of insulin; Healthcare maintenance; Hx of dysplasia of cervix, low grade (VALENTINO 1); Bipolar affective disorder in remission Social History [...] Sign Reading Time Taken Comments Blood Pressure 140/80 05/10/2019 1:03 PM EDT Pulse 94 05/10/2019 1:03 PM EDT Temperature 36.2 ??C (97.1 ??F) 05/10/2019 1:03 PM ED T Respiratory Rate 18 05/10/2019 1:03 PM EDT Oxygen Saturation 95% 05/10/2019 1:03 PM EDT Inhaled Oxygen Concentration - - Weight 103 kg (227 lb) 05/10/2019 1:03 PM EDT Height 160 cm (5' 3) 05/10/2019 1:03 PM EDT Body Mass Index 40.21 05/10/2019 1:03 PM EDT documented in this encounter Progress Notes * Luis E Narayan MD - 05/10/2019 1:00 PM EDT Alize Gramajo is here for Chief Complaint Patient presents with ??? Follow-up Subjective HPI Alize is new to me as a patient. She is here today with a list of multiple items. We agreed to defer Pap today in order to focus on other issues. She states she has been getting annual Paps due to hx abnormal Pap in her past (w recent ones normal) and mother w hx uterine cancer. 1) Screening US of kidney done due to brother's hx renal cell carcinoma - was positive. Subsequent MRI showed adrenal nodule, possible adenoma; and renal complex cyst, r/o cancer. She has appt w Urology 05/27/2019. Metanephrine, richard, renin, and dexamethasone suppression testing ordered. 2) Illness summer 2018, treated at multiple facilities, has left her with ongoing symptoms, some getting better slowly, others not: bladder control, balance, cognitive problems, neuropathy in legs, peripheral edema, word finding trouble. She was on high-dose prednisone and levofloxacin, is not sure if one or both was cause of some of the symptoms. She did see [facility] for nerve conduction testing, and they recommended EEG and neuropsych testing. Alize does not think these have been ordered yet. Follow-up with Neuro scheduled for 06/26/19. MRI brain showed scattered white foci not likely to be MS. MRI spine showed advanced DDD w significant disc extrusion and foraminal narrowing. SPEP, B12, TSH normal; HA1c = 8 felt to be part of cause of her neuropathy. [facility] Testing was negative for Lyme, Ehrlichia, babesia, anaplasmosis. ROS: See Subjective history. Social History Tobacco Use ??? Smoking status: Current Every Day Smoker Packs/day: 1.00 ??? Smokeless tobacco: Never Used Substance Use Topics ??? Alcohol use: No ??? Drug use: No Objective BP 140/80 (BP Location (NBP): Right arm, Patient Position: Sitting, BP Cuff Sizes: Adult (25-34 cm)) Pulse 94 Temp 36.2 ??C (97.1 ??F) Resp 18 Ht 160 cm (5' 3) Wt 103 kg (227 lb) SpO2 95% BMI 40.21 kg/m?? Physical Exam Constitutional: She is oriented to person, place, and time. She appears well- developed. No distress. Eyes: No scleral icterus. Cardiovascular: Normal rate. Pulmonary/Chest: Effort normal. Neurological: She is alert and oriented to person, place, and time. Skin: Skin is warm and dry. Psychiatric: She has a normal mood and affect. Assessment/Plan Alize was seen today for follow-up . Diagnoses and all orders for this visit: Abnormal MRI of head, Hx of Altered mental status episode - EEG W/O Video, Ambulatory; Future; Expected date: 05/10/2019 - Referral to Neuropsychology Follow-up with Neurology as scheduled Type 2 diabetes mellitus without long-term current use of insulin - Referral to Diabetic Education Healthcare maintenance - Mammo Screening Cad and Jose Guadalupe Bilateral; Future; Expected date: 05/10/2019 Will complete health maintenance topics at future visit. Unclear if she needs annual Pap, but might need due to family hx uterine cancer. documented in this encounter Plan of Treatment Upcoming Encounters Date Type Department Care Team (Late st Contact Info) Description 03/20/2024 9:00 AM EDT TH Visit (TeleHealth) Sleep Center at [facility] [address] [place] [phone] Denisse Hardwick, [employer] [facility] 03/20/2024 2:00 PM EDT Clinical Support Family Medicine at [facility] [address] [place] [phone] Julia Low, [facility] 05/01/2024 11:20 AM EDT Appointment Mammography/[place] [phone] Rodney Padilla MD [address] [facility] [place], [place] [phone] 05/01/2024 1:45 PM EDT Office [place] [phone] Juanpablo Hernandez MD [facility] [place] [address] 01/30/2025 1:30 PM EDT Appointment [place] [phone] 01/30/2025 3:[address] [place] [phone] Arturo Cordero MD [facility] HEMATOLOGY [place] [address] 01/30/2025 4:15 PM EDT Office Visit [place]ology [place] [phone] Arturo Cordero MD [facility] [place] [address] Scheduled Referrals Name Type Priority Associated Diagnoses Order Schedule Referral to Neuropsychology Outpatient Referral Routine Altered mental status, unspecified altered mental status type Abnormal MRI of head Ordered: 05/10/2019 Referral to Diabetic Education Outpatient Referral Routine Type 2 diabetes mellitus without long-term current use of insulin Ordered: 05/10/2019 documented as of this encounter Results * Mammo Screening Cad and Jose Guadalupe Bilateral (05/27/2019 2:12 PM EST) Anatomical Region [...] documented in this encounter Visit Diagnoses Diagnosis Altered mental status, unspecified altered mental status type Abnormal MRI of head Nonspecific (abnormal) findings on radiological and other examination of skull and head Type 2 diabetes mellitus without long-term current use of insulin Healthcare maintenance Routine general medical examination at a health care facility Hx of dysplasia of cervix, low grade (VALENTINO 1) Mild dysplasia of cervix Bipolar affective disorder in remission Healthcare maintenance Routine general medical examination at a health care facility documented in this encounter Care Teams Well Head Pumper Relationship Specialty Start Date End Date Luis E Naaryan MD [facility] [address] [facility] [address] PCP - General Family Medicine 03/26/19 01/19/22 documented as of this encounter
--- OUTSIDE RECORDS SUMMARY | 2024-03-04 21:29 | XMS_ITS | Encounter Summary ---
Author Organization [place] [address] Care Team Providers Care Interior Design Faculty Member Name Role Phone Luis E Narayan MD Primary Care Provider [phone] Reason for Referral * Diagnostic Test (Routine) - Closed Specialty Diagnoses / Procedures Referred By Contac t Referred To Contact Radiology Diagnoses Adrenal mass, left Renal mass, left Procedures MRI Abdomen wwo Contrast (Generic) Avila Medina MD [facility] [place] [address] [place] [address] Referral ID Status Reason Start Date Expiration Date V isits Requested Visits Authorized [id number] Closed Specialty Service Requested 04/24/2019 06/22/2019 1 1 Reason for Visit * Diagnostic Test (Routine) - Closed Specialty Diagnoses / Procedures Referred By Contac t Referred To Contact Radiology Diagnoses Adrenal mass, left Renal mass, left Procedures MRI Abdomen wwo Contrast (Generic) Avila Medina MD [facility] [place] [address] [place] [address] Referral ID Status Reason Start Date Expiration Date V isits Requested Visits Authorized [id number] Closed Specialty Service Requested 04/24/2019 06/22/2019 1 1 Encounter Details Date Type Department Care Team (Latest Contact Info) Description 05/02/2019 2:50 PM EDT - 05/02/2019 11:59 PM EDT Hospital Encounter MRI at [facility] [place] [address] Avila Medina MD [facility] [place] [address] Adrenal mass, left; Renal mass, left Discharge Disposition: Home Social [...] Dispensed Refills Start Date End Date melatonin 5 mg Tablet Take 5 mg by mouth nightly. 05/27/2019 nitroGLYcerin (NITROSTAT) 0.4 mg Tablet, Sublingual Place [...] 04/09/2019 06/21/2019 fluticasone propionate (FLONASE) 50 mcg/actuation [place], Suspension 50 sprays by Each Nare route [...] mouth nightly. 90 tablet 3 04/09/2019 06/25/2020 amoxicillin-clavulanate (AUGMENTIN) 875-125 mg Tablet Take 1 tablet by mouth 2 times daily. 20 tablet 04/09/2019 05/27/2019 fluticasone-salmeterol (ADVAIR HFA) 115-21 mcg/Actuation inhaler 07/14/20102019 ALBUTEROL SULFATE (PROVENTIL HFA INHL) 07/14/2010 021 documented as of this encounter Plan of Treatment Upcoming Encounters Date Type Department Care Team (Late st Contact Info) Description 03/20/2024 9:00 AM EDT TH Visit (TeleHealth) Sleep Center at [facility] [address] [place] [address] Denisse Hardwick [facility] 03/20/2024 2:00 PM EDT Clinical Support Family Medicine at [facility] [address] [place] [address] Julia Low RPH 05/01/2024 11:20 AM EDT Appointment Mammography/[place] [phone] Rodney Padilla MD [address] [place] [place] [address] 05/01/2024 1:45 PM EDT Office Visit Ophthalmology at [place] [phone] Juanpablo Hernandez MD [facility] [place] [address] 01/30/2025 1:30 PM EDT Appointment Hematology [place] [address] 01/30/2025 3:[address] [place] [address] Arturo Cordero MD [facility] [address] [place] [address] 01/30/2025 4:15 PM EDT Office Visit Hematology [place] [phone] Arturo Cordero MD [facility] [address] [place] [address] documented as of this encounter Procedures Procedure Name Priority Date/Time Associated Diagnosis Comments MRI ABDOMEN WWO CONTRAST Routine 05/02/2019 3:57 PM EDT Adrenal mass, left Renal mass, left documented in this encounter Results * MRI Abdomen wwo Contrast (Generic) (05/02/2019 3:57 PM EDT) Anatomical Region Laterality Modality Abdomen Magnetic Resonan ce Impressions 05/03/2019 9:33 AM EDT 1. ??LEFT adrenal gland nodule, exhibiting signal characteristics compatible with an adenoma. 2. ??As noted previously, complex cystic and solid LEFT renal mass; cannot exclude a cystic neoplasm (Bosniak 3- 4) Thank you for letting us participate in the care of this patient. For questions regarding this report, please contact the number below. ? Narrative 05/03/2019 9:33 AM EDT EXAMINATION: MRI ABDOMEN WWO CONTRAST (GENERIC) CLINICAL HISTORY: Evaluate atypical Left renal mass ? Bosniak IV renal cyst. Evaluate left adrenal mass ? adenoma. TECHNIQUE: MRI of the abdomen was performed with images obtained prior to and following the intravenous administration of 20ml Dotarem. COMPARISON: CT from 03/19/2019 FINDINGS: Lower chest: Normal. Liver: Normal size and signal intensity. No lesions. Bile ducts: Nondilated. Gallbladder: No gallstones. Normal caliber wall. Pancreas: Normal. Spleen: Normal. Adrenals: As noted on the recent CT, [...] image 52). The RIGHT kidney is normal. Vasculature: No aneurysm. Lymph nodes: No enlarged lymph nodes. Bowel: Nondilated, no inflammatory changes. Peritoneum and mesentery: No ascites or loculated fluid collection. Marrow Signal: Normal. Procedure Note Juanpablo Chris MD - 05/03/2019 EXAMINATION: MRI ABDOMEN WWO CONTRAST (GENERIC) CLINICAL HISTORY: Evaluate atypical Left renal mass ? Bosniak IV renalcyst. Evaluate left adrenal mass ? adenoma. TECHNIQUE: MRI of the abdomen was performed with images obtained prior toand following the intravenous administration of 20ml Dotarem. COMPARISON: CT from 03/19/2019 FINDINGS: Lower chest: Normal. Liver: Normal size and signal intensity. No lesions. Bile ducts: Nondilated. Gallbladder: No gallstones. Normal caliber wall. Pancreas: Normal. Spleen: Normal. Adrenals: As noted on the recent CT, a 17 mm nodule seen in the LEFTadrenal gland. On the out of phase images it exhibits diffuse signal dropout,indicating intracellular fat, compatible with an adenoma. RIGHT adrenal gland isnormal. Kidneys: As noted on the previous CT, a complex,, 2.7 cm mixed signalintensity mass is seen extending from the cortex of the lower pole of the LEFTkidney. The mass has both cystic, and solid components with thickened enhancinginternal septations (series 11, image 52). The RIGHT kidney is normal. Vasculature: No aneurysm. Lymph nodes: No enlarged lymph nodes. Bowel: Nondilated, no inflammatory changes. Peritoneum and mesentery: No ascites or loculated fluid collection. Marrow Signal: Normal. IMPRESSION 1. LEFT adrenal gland nodule, exhibiting signal characteristicscompatible with an adenoma. 2. As noted previously, complex cystic and solid LEFT renal mass;cannot exclude a cystic neoplasm (Bosniak 3- 4) Thank you for letting us participate in the care of this patient. Forquestions regarding this report, please contact the number below. Avila Medina MD [facility] documented in this encounter Visit Diagnoses Diagnosis Adrenal mass, left Unspecified disorder of adrenal glands Renal mass, left Unspecified disorder of kidney and ureter documented in this encounter Administered Medications Inactive Administered Medications - up to 3 most recent administrations Medication Order MAR Action Action Date Dose Rate Site gadoterate meglumine (DOTAREM) 0.5 mmol/mL (376.9 mg/mL) injection 0-100 mL 0-100 mL, Intravenous, ONCE PRN, 1 dose, Starting on Carolee 05/02/19 at 1612, Until Carolee 05/02/19 at 1552, Per Protocol, Radiology Contrast, Routine Given 05/02/2019 3:52 PM EDT 20 mLs documented in this encounter Care Teams Interior Design Faculty Member Relationship Specialty Start Date End Date Luis E Narayan MD [facility] [address] [place] [address] PCP - General Family Medicine 03/26/19 01/19/22 documented as of this encounter
--- OUTSIDE RECORDS SUMMARY | 2024-03-04 21:29 | XMS_ITS | Encounter Summary ---
Author Organization Formerly [facility] Address [facility] [place] [address] Care Team Providers Care Flat Finisher Name Role Phone Luis E Narayan MD Primary Care Provider [phone] Encounter Details Date Type Department Care Team (Late st Contact Info) Description 05/09/2019 Orders Only Sleep Center at [facility] [address] [place] [address] Jhonny Morataya MD [facility] [place] [address] Social History Tobacco Use Types Packs/Day Years [...] as of this encounter Progress Notes * Jhonny Morataya MD - 05/09/2019 11:07 AM EDT Polysomnogram Order Form Room # Technologist Assignment: To be read by on PSG Patient Information Date of study: : 1960 Arrival Time: Name: Alize Gramajo 58 y.o. female Height: 5 ft 3 in Weight: 223 lbs Normal Sleep Hours: 9-10 pm to 5:30 am Physical/Mobility Limitations: No Cognitive Limitations: No Requires Male Tech: No Requires Female Tech: No Requires 1:1 Care: No Requires Parent/Caregiver: No Using Home Oxygen: No At home sleeps in: Bed PSG Indications: Weight loss and ongoing symptoms on CPAP 15 cm Other Medical Conditions: Past Medical History: Diagnosis Date ??? Atherosclerosis of [place] coronary artery of [place] heart with angina pectoris 10/09/2007 History of angina status post myocardial infarction October 2007 with stenting x4 ??? CAD (coronary artery disease) October 12, 2007 ??? COPD (chronic obstructive pulmonary disease) ??? Depression ??? Diabetes mellitus borderline ??? High blood pressure ??? Hypercholesterolemia ??? Hypertension ??? Mental status change ??? Obesity ??? TITO (obstructive sleep apnea) ??? Polyneuropathy PSG Orders Type of study: 2 hour (clock time) diagnostic then mandatory split to CPAP starting at 8 cm please Additional data required: none Special instructions: none *Initiate CPAP/BPAP/oxygen per previously determined protocols unless otherwise specified. documented in this encounter Plan of Treatment Upcoming Encounters Date Type Department Care Team (Late st Contact Info) Description 03/20/2024 9:00 AM EDT TH Visit (TeleHealth) Sleep Center at [facility] [address] [place] [address] Denisse Hardwick, [facility] 03/20/2024 2:00 PM EDT Clinical Support Family Medicine at [facility] [address] [place] [address] Julia Low [facility] 05/01/2024 11:20 AM EDT Appointment Mammography/[place] [address] Rodney Padilla MD [address] [place] [address] 05/01/2024 1:45 PM EDT Office Visit Ophthalmology at [place] [phone] Juanpablo Hernandez MD [facility] [place] [place] [address] 01/30/2025 1:30 PM EDT Appointment Hematology and Oncology at [place] [address] 01/30/2025 3:[address] Scan at [place] [address] Arturo Cordero MD [facility] [address] [place] [address] 01/30/2025 4:15 PM EDT Office Visit Hematology and Oncology at [place] [phone] Arturo Cordero MD [facility] [address] [place] [address] documented as of this encounter Visit Diagnoses Not on filedocumented in this encounter Care Teams Flat Finisher Relationship Specialty Start Date End Date Luis E Narayan MD [facility] [address] [place] [address] PCP - General Family Medicine 03/26/19 01/19/22 documented as of this encounter
--- OUTSIDE RECORDS SUMMARY | 2024-03-04 21:29 | XMS_ITS | Encounter Summary ---
Author Organization Formerly [facility] [place] [address] Care Team Providers Care Potato Chip Maker Name Role Phone Luis E Narayan MD Primary Care Provider Encounter Details Date Type Department Care Team (Late st Contact Info) Description 04/12/2019 [place] [address] Avila Medina MD [facility] [place] [address] Social History Tobacco Use Types Packs/Day Years [...] * Telephone Encounter - Julia Paula - 04/12/2019 11:02 AM EDT LM for pt to schedule follow up with Dr. Medina on 05/27/19 at 2:40PM (ON HOLD) documented in this encounter Plan of Treatment Upcoming Encounters Date Type Department Care Team (Late st Contact Info) Description 03/20/2024 9:00 AM EDT TH Visit (TeleHealth) Sleep Center at [facility] [address] [place] [address] Denisse Hardwick, [facility] 03/20/2024 2:00 PM EDT Clinical Support Family Medicine at [facility] [address] [place] [address] Julia Low, [facility] 05/01/2024 11:20 AM EDT Appointment Mammography/DXA at [place] [phone] Rodney Padilla MD [address] [place] [address] 05/01/2024 1:45 PM EDT Office Visit Ophthalmology at [place] [phone] Juanpablo Hernandez MD [facility] [place] [address] 01/30/2025 1:30 PM EDT Appointment Hematology and Oncology at [place] [phone] 01/30/2025 3:[address] Scan at [place] [phone] Arturo Cordero MD [facility] [place] [address] 01/30/2025 4:15 PM EDT Office Visit Hematology [place] [address] Arturo Cordero MD [facility] HEMATOLOGY [place] [address] documented as of this encounter Visit Diagnoses Not on filedocumented in this encounter Care Teams Potato Chip Maker Relationship Specialty Start Date End Date Luis E Narayan MD [facility] DR LIL[address] [facility]ALKER[facility] [address] PCP - General Family Medicine 03/26/19 01/19/22 documented as of this encounter
--- OUTSIDE RECORDS SUMMARY | 2024-03-04 21:29 | XMS_ITS | Encounter Summary ---
Author Organization [facility] [address] Care Team Providers Care Archival Records Clerk Name Role Phone Brenda Canchola MD Primary Care Provider [phone] Encounter Details Date Type Department Care Team (Late st Contact Info) Description 01/21/2019 Ancillary Procedure [place] [address] Luis E Narayan MD [facility] [address] [place] [address] Social History Tobacco Use Types Packs/Day Years [...] [facility] [address] [place] [address] Denisse Hardwick [facility] 03/20/2024 2:00 PM EDT Clinical Support Family Medicine [facility] [address] [place] [address] Julia Low, [facility] 05/01/2024 11:20 AM EDT Appointment Mammography/DXA at [place] [phone] Rodney Padilla MD [address] [place] [address] 05/01/2024 1:45 PM EDT Office [place] [address] Juanpablo Hernandez MD [facility] [place] [address] 01/30/2025 1:30 PM EDT Appointment Hematology and Oncology at [place] [address] 01/30/2025 3:[address] [place] [address] Arturo Cordero MD [facility] DR HEMATOLOGY [place] [address] 01/30/2025 4:15 PM EDT Office Visit Hematology and Oncology at [place] [phone] Arturo Cordero MD [facility] [place] [address] documented as of this encounter Procedures Procedure Name Priority Date/Time Associated Diagnosis Comments FILM LIBRARY STORAGE ONLY DX CHEST Routine 01/21/2019 12:00 AM EDT documented in this encounter Results * Film Library- Storage Only DX Chest (01/21/2019 12:00 AM EDT) Narrative [facility] - 05/24/2019 9:38 PM EST This exam is auto-finalizing. It's purpose is for storage only. Luis E Narayan MD IMG FILM LIBRARY OR DERABLES Performing Organization Address City/State/[facility] Co de Phone Number [place], [place] documented in this encounter Visit Diagnoses Not on filedocumented in this encounter Care Teams Archival Records Clerk Relationship Specialty Start Date End Date Brenda Canchola MD [address] [place] [address] PCP - General 06/01/10 03/25/19 documented as of this encounter
--- OUTSIDE RECORDS SUMMARY | 2024-03-04 21:29 | XMS_ITS | Encounter Summary ---
Author Organization Formerly [facility] [place] [address] Care Team Providers Care Senior Clinical Data Manager Name Role Phone Brenda Canchola MD Primary Care Provider [phone] Encounter Details Date Type Department Care Team (Late st Contact Info) Description 03/19/2019 Ancillary Procedure [place] [address] Luis E Narayan MD [facility] [address] [place] [address] Social History Tobacco Use Types Packs/Day Years [...] [facility] [address] [place] [address] Denisse Hardwick [facility] 03/20/2024 2:00 PM EDT Clinical Support Family Medicine [facility] [address] [place] [address] Julia Low, [facility] 05/01/2024 11:20 AM EDT Appointment Mammography/DXA at [address] Rodney Padilla MD [address] [place] [place] [address] 05/01/2024 1:45 PM EDT Office Visit Ophthalmology at [address] Juanpablo Hernandez MD [facility] [place] [address] 01/30/2025 1:30 PM EDT Appointment Hematology and Oncology at [place] [address] 01/30/2025 3:[address] Scan at [address] Arturo Cordero MD [facility] [address] HEMATOLOGY [place] [address] 01/30/2025 4:15 PM EDT Office Visit Hematology and Oncology at [place] [phone] Arturo Cordero MD [facility] [address] HEMATOLOGY [place] [address] documented as of this encounter Procedures Procedure Name Priority Date/Time Associated Diagnosis Comments FILM LIBRARY STORAGE ONLY CT ABDOMEN AND PELVIS STAT 03/19/2019 12:00 AM EDT documented in this encounter Results * Film Library- Storage Only CT Abdomen & Pelvis (03/19/2019 12:00 AM EDT) Narrative [facility] - 03/28/2019 11:04 AM EDT This exam is auto-finalizing. It's purpose is for storage only. Luis E Narayan MD IMG FILM LIBRARY OR DERABLES [place], [place] documented in this encounter Visit Diagnoses Not on filedocumented in this encounter Care Teams Senior Clinical Data Manager Relationship Specialty Start Date End Date Brenda Canchola MD [address] [place] [address] PCP - General 06/01/10 03/25/19 documented as of this encounter
--- OUTSIDE RECORDS SUMMARY | 2024-03-04 21:29 | XMS_ITS | Encounter Summary ---
Author Organization [facility] Address [facility] [place] [address] Care Team Providers Care Medical Assistant Secretary Name Role Phone Luis E Narayan MD Primary Care Provider [phone] Reason for Visit * Reason Onset Date Comments Other 04/18/2019 Encounter Details Date Type Department Care Team (Late st Contact Info) Description 04/18/2019 Telephone Family Medicine at [facility] [address] [place] [address] Shayy Emanuel Other Social History Tobacco Use Types Packs/Day [...] encounter Miscellaneous Notes * Telephone Encounter - Yolanda Maicas RN - 04/18/2019 3:49 PM EDT Called pt and informed her that the paperwork has been faxed to [phone]. Pt was pleased with this. * Telephone Encounter - Shayy Emanuel - 04/18/2019 3:34 PM EDT Message: Patient calling in regards to disability paperwork and wondering the status of it. Please contact back to discuss further. Ask caller their first and last name and relationship to the patient: Patient Best time to call back: any Ok to leave a message: y-detailed Ok to send [facility] message: y Offered Appointment: MA/Nurse/Inspector [employer] contacted via: Message: y Call: n Pager: n documented in this encounter Plan of Treatment Upcoming Encounters Date Type Department Care Team (Late st Contact Info) Description 03/20/2024 9:00 AM EDT TH Visit (TeleHealth) Sleep Center at [facility] [address] [place] [address] Denisse Hardwick, [facility] 03/20/2024 2:00 PM EDT Clinical Support Family Medicine at [facility] [address] [place] [address] Julia Low, [facility] 05/01/2024 11:20 AM EDT Appointment Mammography/[place] [address] Rodney Padilla MD [facility] [place] [place] [address] 05/01/2024 1:45 PM EDT Office [place] [address] Juanpablo Hernandez MD [facility] [place] [address] 01/30/2025 1:30 PM EDT Appointment Hematology [place] [address] 01/30/2025 3:[address] [place] [address] Arturo Cordero MD [facility] DR HEMATOLOGY [place] [address] 01/30/2025 4:15 PM EDT Office Visit Hematology [place] [address] Arturo Cordero MD [facility] HEMATOLOGY [place] [address] documented as of this encounter Visit Diagnoses Not on filedocumented in this encounter Care Teams Medical Assistant Secretary Relationship Specialty Start Date End Date Luis E Narayan MD [facility] [address]-[place] [address] PCP - General Family Medicine 03/26/19 01/19/22 documented as of this encounter
--- OUTSIDE RECORDS SUMMARY | 2024-03-04 21:29 | XMS_ITS | Encounter Summary ---
Author Organization [facility] [address] Care Team Providers Care Broadcaster Name Role Phone Luis E Narayan MD Primary Care Provider [phone] Encounter Details Date Type Department Care Team (Late Contact Info) Description 04/30/2019 [place] [address] Ru Leon, RN Social History Tobacco Use [...] Telephone Encounter - Ru Leon, RN - 04/30/2019 2:45 PM EDT Message left to see if she had metabolic labs drawn documented in this encounter Plan of Treatment Upcoming Encounters Date Type Department Care Team (Late Contact Info) Description 03/20/2024 9:00 AM EDT TH Visit (TeleHealth) Sleep Center at [facility] [address] [place] [address] Denisse Hardwick, [facility] 03/20/2024 2:00 PM EDT Clinical Support Family Medicine at [facility] [address] [place] [address] Julia Low, [facility] 05/01/2024 11:20 AM EDT Appointment Mammography/DXA at [place] [phone] Rodney Padilla MD [address] [place] [address] 05/01/2024 1:45 PM EDT Office Visit Ophthalmology at [address] Juanpablo Hernandez MD [facility] [address] 01/30/2025 1:30 PM EDT Appointment Hematology [place] [address] 01/30/2025 3:[address] Scan at [address] Arturo Cordero MD [facility] [place]ATOLOGY [place] [address] 01/30/2025 4:15 PM EDT Office Visit Hematology and Oncology at [place] [phone] Arturo Cordero MD [facility] [place]EMATOLOGY [place] [address] documented as of this encounter Visit Diagnoses Not on filedocumented in this encounter Care Teams Broadcaster Relationship Specialty Start Date End Date Luis E Narayan MD [facility] DR [address] [place] [address] PCP - General Family Medicine 03/26/19 01/19/22 documented as of this encounter
--- OUTSIDE RECORDS SUMMARY | 2024-03-04 21:29 | XMS_ITS | Encounter Summary ---
Author Organization [facility] [place] [address] Care Team Providers Care Skid Adzer Name Role Phone Luis E Narayan MD Primary Care Provider [phone] Reason for Referral * Diagnostic Test (Routine) - Closed Specialty Diagnoses / Procedures Referred By Contac t Referred To Contact Radiology Diagnoses Adrenal mass, left Renal mass, left Procedures MRI Abdomen wwo Contrast (Generic) Avila Medina MD [facility] [place] [address] [place] [address] Referral ID Status Reason Start Date Expiration Date V isits Requested Visits Authorized [id number] Closed Specialty Service Requested 04/24/2019 06/22/2019 1 1 Reason for Visit * Consultation (Urgent) - Closed Specialty Diagnoses / Procedures Referred By Contac t Referred To Contact Urology Diagnoses Renal mass Elpidio Pinedo IV, MD [facility] [place] [address] [facility] [place] [address] Referral ID Status Reason Start Date Expiration Date V isits Requested Visits Authorized [id number] Closed Consult, Test & Treat 03/26/2019 03/25/2020 1 1 Encounter Details Date Type Department Care Team (Late st Contact Info) Description 04/11/2019 9:50 AM EDT Office Visit Hematology [place] [address] Avila Medina MD [facility] [place] [address] Adrenal mass, left; Renal mass, left Social History Tobacco Use [...] Sign Reading Time Taken Comments Blood Pressure 136/69 04/11/2019 10:18 AM EDT Pulse 67 04/11/2019 10:18 AM EDT Temperature 36.6 ??C (97.9 ??F) 04/11/2019 10:18 AM E DT Respiratory Rate 18 04/11/2019 10:18 AM EDT Oxygen Saturation 100% 04/11/2019 10:18 AM EDT Inhaled Oxygen Concentration - - Weight 103 kg (227 lb 1.2 oz) 04/11/2019 10:14 A M EDT Height 161 cm (5' 3.39) 04/11/2019 10:16 AM EDT Body Mass Index 39.74 04/11/2019 10:14 AM EDT documented in this encounter Progress Notes * Avila Medina MD - 04/11/2019 9:50 AM EDT Images from the original note were not included. Patient Name: Alize Gramajo Date of Service: 04/11/2019 Primary Care Provider: Luis E Narayan MD Reason for Visit: Alize Gramajo is a 58 y.o. female who is referred for evaluation of Patient had a screening U/S as she [...] being w/u for a neurological condition ASCVD MA with stents 11 years ago Type II DM HTN Neuropathy Past Surgical History: Left knee surgery CS Section Medications: Reviewed Allergies: Reviewed Family History: There is no family history of renal cancer. 1/3 Brother in 60s of renal cancer. 1/3 brother has a renal mass on observation. 3 OK. No sisters. Mother Uterine cancer later [...] systems negative. Physical Exam: Most Recent Vitals: 04/11/19 1018 BP: 136/69 Pulse: 67 Resp: 18 Temp: 36.6 ??C (97.9 ??F) SpO2: 100% The patient has no signs of excess [...] throat is normal. The skin is normal. Thereis no lymphadenopathy or thyroidomegaly The chest is clear to percussion and auscultation. Heart sounds I and II are normal without murmurs or added sounds. Peripheral pulses are full without bruits The abdomen is benign. There are no masses or organomegaly. Abdominal striae. External genitalia is normal a rectal and vaginal exam are not performed. Examination of the extremities and neurological examination is grossly normal. 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 Evaluation ongoing #5: Moderate comorbidiity Plan: Renal/Adrenal MR Metabolic w/u Completion of w/u for other medical issues. Discussion of DDx of her renal and adrenal mass. 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 Renal mass certainly suspicious for a cysticrenal cancer. In general these have a relatively low metastatic potential. We will discuss treatment options bx/excision/ablation/observation etc following MR Biochemical testing Functional mass Pheochromacytoma: #1: Resting (supine) Fasting Plasma Metanephrins and Free Metanephrins (optimally off Tylenol x 5 days and no caffine x 24 hours) Corticosteroid excess: #1: Overnight dexamethasone (1 mg) suppression test. Take 1mg dexamethasone at 11.00pm. Measure serum cortisol at 8.00am; (abnormal= serumcortisol, >5 ??g per deciliter (138 nmol per liter)) Mineralocoticoid excess: (Only if patient hypertensive) #1: Serum Potassium #2: Morning measurement of the plasma aldosterone concentration and plasma renin Activity ( values for the plasma aldosterone concentration are in nanograms per deciliter, and values for plasma renin activity are in nanograms per milliliter per hour) which can be performed while the patient is receiving any antihypertensive drug except spironolactone (Aldactone, Marc), eplerenone (Inspra, Pfizer), or high-dose amiloride (Midamor, Merck); the plasma aldosterone concentration and plasma renin activity ratio of>=20 (PAC (/PRA) and a plasma aldosterone concentration of >=15 ng per deciliter are positiveresults documented in this encounter Plan of Treatment Upcoming Encounters Date Type Department Care Team (Late st Contact Info) Description 03/20/2024 9:00 AM EDT TH Visit (TeleHealth) Sleep Center at [facility] [address] [place] [phone] Denisse Hardwick [facility] 03/20/2024 2:00 PM EDT Clinical Support Family Medicine at [facility] [address] [place] [phone] Julia Low [facility] 05/01/2024 11:20 AM EDT Appointment Mammography/[place] [phone] Rodney Padilla MD [address] [facility] [place], [place] [id number] 05/01/2024 1:45 PM EDT Office [place] [address] Juanpablo Hernandez MD [facility] [place] [address] 01/30/2025 1:30 PM EDT Appointment Hematology and Oncology at [address] 01/30/2025 3:[address] [place] [phone] Arturo Cordero MD [facility] [address] H[place] [address] 01/30/2025 4:15 PM EDT Office Visit Hematology [place] [address] Arturo Cordero MD [facility] [address] [place] [address] documented as of this encounter Results * MRI Abdomen wwo [...] contact the number below. Electronically signed by: Juanpablo Chris [facility]([phone]), at 05/03/2019 9:33 AM Avila Medina MD IMG MRI ORDERABLES documented in this encounter Visit Diagnoses Diagnosis Adrenal mass, left Unspecified disorder of adrenal glands Renal mass, left Unspecified disorder of kidney and ureter Adrenal mass, left Unspecified disorder of adrenal glands Renal mass, left Unspecified disorder of kidney and ureter documented in this encounter Care Teams Skid Adzer Relationship Specialty Start Date End Date Luis E Narayan MD [facility] [address] [place] [address] PCP - General Family Medicine 03/26/19 01/19/22 documented as of this encounter
--- OUTSIDE RECORDS SUMMARY | 2024-03-04 21:29 | XMS_ITS | Encounter Summary ---
Author Organization [facility] Address [facility] [place] [address] Care Team Providers Care Sales Performance Manager Name Role Phone Luis E Narayan MD Primary Care Provider [phone] Encounter Details Date Type Department Care Team (Late st Contact Info) Description 04/15/2019 [place] [address] Avila Medina MD [facility] [place] [address] Social History Tobacco Use Types Packs/Day Years [...] [facility] [address] [place] [address] Denisse Hardwick, [facility] 03/20/2024 2:00 PM EDT Clinical Support Family Medicine at [facility] [address] [place] [address] Julia Low, [facility] 05/01/2024 11:20 AM EDT Appointment Mammography/DXA at [place] [address] Rodney Padilla MD [address] [place] [address] 05/01/2024 1:45 PM EDT Office Visit Ophthalmology at [place] [address] Juanpablo Hernandez MD [facility] [place] [address] 01/30/2025 1:30 PM EDT Appointment Hematology and Oncology at [place] [address] 01/30/2025 3:[address] Scan at [place] [address] Arturo Cordero MD [facility] DR HEMATOLOGY [place] [address] 01/30/2025 4:15 PM EDT Office Visit Hematology and Oncology at [place] [address] Arturo Cordero MD [facility] DR HEMATOLOGY [place] [address] documented as of this encounter Visit Diagnoses Not on filedocumented in this encounter Care Teams Sales Performance Manager Relationship Specialty Start Date End Date Luis E Narayan MD [facility] [address] [address] PCP - General Family Medicine 03/26/19 01/19/22 documented as of this encounter
--- OUTSIDE RECORDS SUMMARY | 2024-03-04 21:29 | XMS_ITS | Encounter Summary ---
[place] [address] Care Team Providers Care Instrumentation Tech Name Role Phone Brenda Canchola MD Primary Care Provider [phone] Reason for Visit * Reason Comments Anxiety Encounter Details Date Type Department Care Team ([facility] st Contact Info) Description 02/14/2019 9:50 PM EDT - 02/15/2019 12:12 AM EDT [place] [address] Tony Monique MD [address] [place] [address] [place] [address] Anxiety Discharge Disposition: Home Social History Tobacco Use [...] Sign Reading Time Taken Comments Blood Pressure 143/81 02/15/2019 12:00 AM EDT Pulse 67 02/15/2019 12:00 AM EDT Temperature 36.5 ??C (97.7 ??F) 02/15/2019 1 2:11 AM EDT Respiratory Rate 14 02/15/2019 12:0 0 AM EDT Oxygen Saturation 92% 02/15/2019 12: 00 AM EDT Inhaled Oxygen Concentration - - Weight 106.9 kg (235 lb 9.6 oz) 02/14/2019 7:20 PM EDT Height 152.4 cm (5') 02/14/2019 7:20 PM EDT Body Mass Index 46.01 02/14/2019 7:20 PM EDT documented in this encounter Discharge Instructions * Discharge Instructions* Yahir Okeefe MD - 02/14/2019 11:52 PM EDT You presented to the emergency department with concern for anxiety and high blood pressure. Based on our evaluation we believe that you are safe to go home at this time. You had a normal, safe, bloodpressure for your age. Your leg swelling was also not concerning. You should continue to take your diuretic (water pill), as directed. You need to follow-up with your primary care provider regarding your anxiety. Please see the attachments regarding anxiety and reasons to return or call for help. Results for ALIZE MANJARREZ ( ) as of 02/14/2019 23:52 Ref. Range 07/22/2013 16:36 02/14/2019 22:28 02/14/2019 22:54 WBC Latest Ref Range: 4.0 - 9.5 x10(3)/mcL 7.2 RBC Latest Ref Range: 4.00 - 5.21 x10(6)/mcL 4.11 Hemoglobin Latest Ref Range: 11.7 - 15.5 gm/dL 12.0 Hematocrit Latest Ref Range: 35.7 - 45.8 % 36.3 MCV Latest Ref Range: 82.6 - 94.4 fL 88.3 MCH Latest Ref Range: 27.1 - 32.0 pg 29.2 MCHC Latest Ref Range: 31.7 - 35.0 gm/dL 33.1 RDWSD Latest Ref Range: 37.0 - 46.0 fL 45.5 RDWCV Latest Ref Range: 11.5 - 14.1 % 14.3 (H) Platelets Latest Ref Range: 145 - 357 x10(3)/mcL 366 (H) MPV Latest Ref Range: 7.6 - 12.9 fL 8.6 nRBC % Auto Latest Units: % 0.0 nRBC Abs Auto Latest Ref Range: 0.000 - 0.000 x10(3)/mcL 0.000 Neutr Abs (ANC) Latest Ref Range: 1.70 - 6.10 x10(3)/mcL 3.75 Neutrophils % Latest Units: % 52.0 Immature Gran % Latest Units: % 0.40 Lymphocytes % Latest Units: % 35.2 Monocytes % Latest Units: % 9.0 Eosinophils % Latest Units: % 2.8 Basophils % Latest Units: % 0.6 Soraida Gran Abs Latest Ref Range: 0.00 - 0.04 x10(3)/mcL 0.03 Lymphocytes Abs Latest Ref Range: 0.9 - 3.2 x10(3)/mcL 2.5 Monocyte Abs Latest Ref Range: 0.3 - 0.9 x10(3)/mcL 0.6 Eosinophils Abs Latest Ref Range: 0.0 - 0.4 x10(3)/mcL 0.2 Basophils Abs Latest Ref Range: 0.0 - 0.1 x10(3)/mcL 0.0 Plat Estimate Unknown Normal RBC Morphology Unknown Normal Sodium Latest Ref Range: 135 - 145 mmol/L 140 Potassium Latest Ref Range: 3.5 - 5.0 mmol/L 3.9 Chloride Latest Ref Range: 98 - 107 mmol/L 102 CO2 Latest Ref Range: 22 - 31 mmol/L 28 Anion Gap Latest Ref Range: 5 - 15 mmol/L 10 BUN Latest Ref Range: 8 - 18 mg/dL 11 Creatinine Latest Ref Range: 0.70 - 1.20 mg/dL 0.76 eGFR Latest Ref Range: >=60 mL/min/1.73 m?? 86 eGFR Latest Ref Range: >=60 mL/min/1.73 m?? 100 Glucose Lvl Latest Ref Range: 65 - 199 mg/dL 147 Calcium Latest Ref Range: 8.5 - 10.5 mg/dL 9.2 Free T4 Latest Ref Range: 0.93 - 1.70 ng/dL 1.00 TSH Latest Ref Range: 0.27 - 4.20 mcIU/mL 4.60 (H) * Attachments The following attachments cannot be sent through Care Everywhere. * Anxiety Disorder (Tongan) * Generalized Anxiety Disorder: General Info (Tongan) documented in this encounter Medications at Time of Discharge Medication Sig Dispensed Refills Start Date End Date amLODIPine (NORVASC) 5 mg Tablet Take 5 mg by mouth daily. 4 02/12/2019 04/09/2019 simvastatin (ZOCOR) 10 mg Tablet Take 10 mg by mouth daily. 4 11/26/2018 04/09/2019 fluticasone propionate (FLONASE) 50 mcg/actuation [place], Suspension 50 sprays by Each Nare route 2 times daily. 0 01/27/2019 04/09/2019 loratadine (CLARITIN) 10 mg Tablet Take 10 mg by mouth daily. 0 01/27/2019 04/09/2019 gabapentin (NEURONTIN) 100 mg capsuleIndications:natahniel ropathic pain Take 100 mg by mouth [...] as of this encounter ED Notes * Tony Monique MD - 02/14/2019 10:35 PM EDT ED ATTENDING ATTESTATION NOTE The patient was seen in conjunction with Dr. Okeefe, the resident physician. I have independentlyperformed the smith portions of the history and physical exam. I have reviewed the nursing notes, vital signs, and all diagnostic studies personally including labs, imaging studies and EKGs. I have discussed the details of the case with the resident and agree with the assessment and plan as describedin the resident note above unless noted otherwise below. Brief Summary: 58-year-old female with history of depression, anxiety, type 2 diabetes, and STEMI status post stenting who presents with anxiety and concerns of elevated blood pressure. Has had a complicated recent history with an admission in mid January for community-acquired pneumonia as well as recent psychogenic polydipsia with admission to [facility] and was discharged roughly 1 week ago. Blood pressure overall reassuring here. Will get lab work. If overall reassuring, will likely be discharged home. Labs unremarkable. Blood pressure limits here and patient feels much better with normal blood pressure readings. I do think this was a cuff issue at home. Discharged home. Final Assessment: Anxiety Tony Monique MD 02/15/19 0405 * Yahir Okeefe MD - 02/14/2019 9:58 PM EDT ED Resident Note Alize Manjarrez is an 58 y.o. female who presents to the ED with: Chief Complaint Patient presents with ??? Anxiety I saw this patient on 02/15/2019. History is from patient. HPI Alize Manjarrez is a 58 y.o. female with a past medical history significant for depression, anxiety,T2DM, and NSTEMI s/p stenting who presents to the Emergency Department with anxiety. Patient was recently admitted to [place] in mid-January with community acquired pneumonia. She also had recent psychogenic polydipsia resulting in AMS and she was admitted to [facility] last week for this. She was discharged ~1wk ago. Patient reports that she has edema with bilateral lower extremity swelling, and that was her primary concern for coming into the emergency department tonight. She was also concerned because her home blood pressure monitor was not working. She had bilateral lower extremity swelling during her stay at [facility] last week. She was given a diuretic at discharge. She had negative duplex ultrasounds at that time. She denies any CP, SOB, fever, chills, nausea, or vomiting. She also reports that with the recent loss of her brother she has had difficulty sleeping. She denies any SI or HI. Patient thinks that she may be bipolar. She has a visit with her PCP on Monday to follow-up. Review of Systems: Review of Systems Constitutional: Negative for chills and fever. HENT: Negative for nosebleeds, rhinorrhea and sore throat. Eyes: Negative for pain and visual disturbance. Respiratory: Negative for shortness of breath and wheezing. Cardiovascular: Positive for leg swelling. Negative for chest pain. Gastrointestinal: Negative for abdominal pain, anal bleeding, blood in stool, constipation, diarrhea, nausea and vomiting. Endocrine: Positive for polydipsia. Negative for cold intolerance and heat intolerance. Genitourinary: Negative for dysuria, flank pain and hematuria. Musculoskeletal: Negative for back pain and neck pain. Skin: Negative for rash. Neurological: Negative for syncope and headaches. Physical Exam: Patient Vitals for the past 24 hrs: BP Temp Temp src Pulse Resp SpO2 Height Weight 02/15/19 0011 -- 36.5 ??C (97.7 ??F) Oral -- -- -- -- -- 02/15/19 0000 143/81 -- -- 67 14 92 % -- -- 02/14/19 2345 144/77 -- -- 66 17 94 % -- -- 02/14/19 2330 148/88 -- -- 64 17 90 % -- -- 02/14/19 2315 156/81 -- -- 68 14 95 % -- -- 02/14/19 1920 157/83 36.6 ??C (97.9 ??F) Oral 87 18 99 % 152.4 cm (5') 106.9 kg (235 lb 9.6 oz) GEN: Alert and conversant, no acute distress. HEENT: Normocephalic, atraumatic. PERRLA, EOMI. Oropharynx clear, pink, and moist, without discharge. Septum midline. PULM: Clear to auscultation bilaterally, no wheezes, rales, or rhonchi. CV: Regular rate and rhythm, no murmurs, rubs, or gallups. ABD: Soft, non-distended, non-tender. No rigidity, rebound, or guarding. MSK: All four extremities without obvious deformity or significant weakness. No lower extremity pitting edema. NEURO: AAOx3. No gross CN deficits. Moves extremities equally. PSYCH: Pressured speech, highly anxious. SKIN: No visible rashes or wounds. ED Course: - Patient seen and discussed with the attending physician. - I reviewed the patient's medications, allergies, and past medical history. Recent Results (from the past 24 hour(s)) Basic Metabolic Panel (non-fasting) Result Value Ref Range Glucose Lvl 147 65 - 199 mg/dL BUN 11 8 - 18 mg/dL Creatinine 0.76 0.70 - 1.20 mg/dL Sodium 140 135 - 145 mmol/L Potassium 3.9 3.5 - 5.0 mmol/L Chloride 102 98 - 107 mmol/L CO2 28 22 - 31 mmol/L Anion Gap 10 5 - 15 mmol/L Calcium 9.2 8.5 - 10.5 mg/dL eGFR 86 >=60 mL/min/1.73 m?? eGFR 100 >=60 mL/min/1.73 m?? TSH Result Value Ref Range TSH 4.60 (H) 0.27 - 4.20 mcIU/mL T4, free Result Value Ref Range Free T4 1.00 0.93 - 1.70 ng/dL Hemogram Result Value Ref Range WBC 7.2 4.0 - 9.5 x10(3)/mcL RBC 4.11 4.00 - 5.21 x10(6)/mcL Hemoglobin 12.0 11.7 - 15.5 gm/dL Hematocrit 36.3 35.7 - 45.8 % MCV 88.3 82.6 - 94.4 fL MCH 29.2 27.1 - 32.0 pg MCHC 33.1 31.7 - 35.0 gm/dL Platelets 366 (H) 145 - 357 x10(3)/mcL RDWSD 45.5 37.0 - 46.0 fL RDWCV 14.3 (H) 11.5 - 14.1 % MPV 8.6 7.6 - 12.9 fL nRBC % Auto 0.0 % nRBC Abs Auto 0.000 0.000 - 0.000 x10(3)/mcL Differential, Automated Result Value Ref Range Neutrophils % 52.0 % Neutr Abs (ANC) 3.75 1.70 - 6.10 x10(3)/mcL Lymphocytes % 35.2 % Lymphocytes Abs 2.5 0.9 - 3.2 x10(3)/mcL Monocytes % 9.0 % Monocyte Abs 0.6 0.3 - 0.9 x10(3)/mcL Eosinophils % 2.8 % Eosinophils Abs 0.2 0.0 - 0.4 x10(3)/mcL Basophils % 0.6 % Basophils Abs 0.0 0.0 - 0.1 x10(3)/mcL Immature Gran % 0.40 % Soraida Gran Abs 0.03 0.00 - 0.04 x10(3)/mcL Blue Tube HOLD Result Value Ref Range Blue Hold Sample in lab. Gold Tube HOLD Result Value Ref Range Gold Hold Sample in lab. Scan, Peripheral Blood Result Value Ref Range Plat Estimate Normal RBC Morphology Normal Assessment and Plan: 58 y.o. female with a past medical history significant for depression, anxiety, T2DM, and NSTEMI s/p stenting who presents to the Emergency Department with anxiety. Vital signs were within the normallimits at the time of presentation. Physical exam was reassuring. Initial differential diagnosis considered included anxiety, hypo-thyroidism, hyperthyroidism, ACS, hyponatremia, and depression, among others. Patient's sodium was within the normal limits and her free T4 was also within the normal limits. Her CBC was unremarkable. She will be following up with her primary care provider on Monday I had no acute concerns for her at this time. I reviewed her EKG which showed an unremarkable sinus rhythm. Return precautions were verbally discussed and written in discharge instructions. The patient and/or guardian expressed understanding that they could come back to the ED at any time and agreedto the follow-up plan. Yahir Okeefe MD Resident 02/15/19 0101 documented in this encounter Plan of Treatment Upcoming Encounters Date Type Department Care Team (Late st Contact Info) Description 03/20/2024 9:00 AM EDT TH Visit (TeleHealth) Sleep Center at [facility] [address] [place] [address] Denisse Hardwick, [employer] [facility] 03/20/2024 2:00 PM EDT Clinical Support Family Medicine at [facility] [address] [place] [id number] Julia Low [facility] 05/01/2024 11:20 AM EDT Appointment Mammography/[place] [address] Rodney Padilla MD [address] [place] [address] 05/01/2024 1:45 PM EDT Office Visit Ophthalmology at [place] [phone] Juanpablo Hernandez MD [facility] [place] [address] 01/30/2025 1:30 PM EDT Appointment Hematology and Oncology at [place] [phone] 01/30/2025 3:[address] Scan at [place] [phone] Arturo Cordero MD [facility] DR HEMATOLOGY [place] [address] 01/30/2025 4:15 PM EDT Office Visit [place]ology [place] [address] Arturo Cordero MD [facility] DR HEMATOLOGY [place] [address] documented as of this encounter Procedures Procedure Name Priority Date/Time Associated Diagnosis Comments SCAN, PERIPHERAL BLOOD STAT 02/14/2019 10:54 PM EDT HEMOGRAM STAT 02/14/2019 10:54 PM EDT DIFFERENTIAL, AUTOMATED STAT 02/14/2019 10:54 PM EDT GOLD TUBE HOLD STAT 02/14/2019 10:54 PM EDT BLUE TUBE HOLD STAT 02/14/2019 10:54 PM EDT CBC (WITH DIFF) STAT 02/14/2019 10:54 PM EDT TSH STAT 02/14/2019 10:54 PM EDT T4, FREE STAT 02/14/2019 10:54 PM EDT BASIC METABOLIC PANEL STAT 02/14/2019 10:54 PM EDT EKG 12-LEAD STAT 02/14/2019 10:28 PM EDT documented in this encounter Results * Scan, Peripheral Blood (02/14/2019 10:54 PM EDT) Plat estimate Normal [facility] RBC Morphology Normal [facility] Blood specimen (specimen) 02/14/2019 10:54 PM EDT 02/14/2019 11:09 PM EDT Narrative Resulting Agency Comment Spec In Lab Yahir Okeefe MD HEMATOLOGY ORDERABL ES [facility] [place] [address] * Gold Tube HOLD (02/14/2019 10:54 PM EDT) Gold Hold Sample in lab. [facility] Blood specimen (specimen) Venous Draw / Unknown 02/14/2019 10:54 PM EDT 02/14/2019 11:09 PM EDT Yahir Okeefe MD CHEMISTRY ORDERABLE S [facility] [place] [address] * Blue Tube HOLD (02/14/2019 10:54 PM EDT) Pathologist [facility] Blue Hold Sample in lab. [facility] Blood specimen (specimen) Venous Draw / Unknown 02/14/2019 10:54 PM EDT 02/14/2019 11:09 PM EDT Yahir Okeefe MD HEMATOLOGY ORDERABL ES [facility] [place] [address] * Differential, Automated (02/14/2019 10:54 PM EDT) [facility] Neutrophil % 52.0 % [facility] Neutrophil Absolute 3.75 1.70 - 6.10 x10(3)/[facility] Lymph % 35.2 % [facility] Lymphocytes Abs 2.5 0.9 - 3.2 x10(3)/[facility] Monocyte % 9.0 % [facility] Monocyte Abs 0.6 0.3 - 0.9 x10(3)/[facility] Eos % 2.8 % [facility] Eosinophils Abs 0.2 0.0 - 0.4 x10(3)/[facility] Basophil % 0.6 % [facility] Baso Absolute 0.0 0.0 - 0.1 x10(3)/[facility] Immature Gran % 0.40 % [facility] Comment: Immature granulocytes(IG's)percentage and absolute count will include metamyelocytes, myelocytes, and promyelocytes. Blood smears from CBCs yielding IG's will be scanned manually for concordance. If this scan disagrees with the automated IG or if promyelocytes are noted, a manual differential will be performed. Immature Gran Absolute 0.03 0.00 - 0.04 x10(3)/[facility] Blood specimen (specimen) 02/14/2019 10:54 PM EDT 02/14/2019 11:09 PM EDT Narrative Resulting Agency Comment Spec In Lab Yahir Okeefe MD HEMATOLOGY ORDERABL ES Performing Organization Address City/[facility] [address]/ZIP Co de Phone Number [facility] [place] [address] * (ABNORMAL) Hemogram (02/14/2019 10:54 PM EDT) White Blood Cell 7.2 4.0 - 9.5 x10(3)/mc L [facility] Red Blood Cell 4.11 4.00 - 5.21 x10(6)/mc L [facility] Hemoglobin 12.0 11.7 - 15.5 gm/dL [facility] Hematocrit 36.3 35.7 - 45.8 % [facility] Mean Cell Volume 88.3 82.6 - 94.4 fL [facility] Mean Cell Hemoglobin 29.2 27.1 - 32.0 pg [facility] Mean Cell Hemoglobin Concentration 33.1 31.7 - 35.0 gm/dL [facility] Platelet 366(H) 145 - 357 x10(3)/mc L [facility] RDW Standard Deviation 45.5 37.0 - 46.0 [facility] RDW coefficient of variation 14.3(H) 11.5 - 14.1 % [facility] Mean Platelet Volume 8.6 7.6 - 12.9 [facility] NRBC% auto 0.0 % [facility] NRBC Absolute 0.000 0.000 - 0.000 x10(3)/mc L [facility] Blood specimen (specimen) 02/14/2019 10:54 PM EDT 02/14/2019 11:09 PM EDT Narrative Resulting Agency Comment Spec In Lab Yahir Okeefe MD HEMATOLOGY ORDERABL ES Performing Organization Address City/[facility] [address]/ZIP Co de Phone Number [facility] [place] [address] * T4, free (02/14/2019 10:54 PM EDT) Free T4 1.00 0.93 - 1.70 ng/dL [facility] Blood specimen (specimen) 02/14/2019 10:54 PM EDT 02/14/2019 11:09 PM EDT Narrative Resulting Agency Comment Spec In Lab Tony Monique MD CHEMISTRY ORDERABLES Performing Organization Address City/[facility] [address]/ZIP Co de Phone Number [facility] [place] [address] * (ABNORMAL) TSH (02/14/2019 10:54 PM EDT) Pathologist [facility] Thyroid Stimulating Hormone 4.60(H) 0.27 - 4.20 mcIU/mL [facility] Blood specimen (specimen) 02/14/2019 10:54 PM EDT 02/14/2019 11:09 PM EDT Narrative Resulting Agency Comment Spec In Lab Tony Monique MD CHEMISTRY ORDERABLES Performing Organization Address City/[facility] [address]/ZIP Co de Phone Number [facility] [place] [address] * Basic Metabolic Panel (non-fasting) (02/14/2019 10:54 PM EDT) [facility] Glucose 147 65 - 199 mg/dL [facility] Comment:Diabetes: >=200 mg/d L plus symptoms Blood Urea Nitrogen 11 8 - 18 mg/dL [facility] Creatinine 0.76 0.70 - 1.20 mg/dL [facility] Sodium 140 135 - 145 mmol/L [facility] Potassium 3.9 3.5 - 5.0 mmol/L [facility] Comment: Please note: ??Patients with WBC >100,000 may have falsely elevated Potassium levels. ??For accurate Potassium quantification in these patients send serum separator tube (gold top) for subsequent determinations. ??Contact the Clinical Chemistry Laboratory if there are any questions. Chloride 102 98 - 107 mmol/L [facility] Carbon Dioxide 28 22 - 31 mmol/L [facility] Anion Gap 10 5 - 15 mmol/L [facility] Calcium 9.2 8.5 - 10.5 mg/dL [facility] Est Glomerular Filtration Rate 86 >=60 mL/min/1. 73 m?? [facility] Comment: The eGFR was calculated using the CKD-EPI equation. As with all creatinine based estimates of kidney function, eGFR values calculated with the CKD-EPI equation are not accurate in patients with acute kidney failure, extremes of body mass or the acutely ill. http://Hiptype/DHMCnkf eGFR 100 >=60 mL/min/1. 73 m?? [facility] Comment: The eGFR was calculated using the CKD-EPI equation. As with all creatinine based estimates of kidney function, eGFR values calculated with the CKD-EPI equation are not accurate in patients with acute kidney failure, extremes of body mass or the acutely ill. http://[email or web address]/DHMCnkf Blood specimen (specimen) 02/14/2019 10:54 PM EDT 02/14/2019 11:09 PM EDT Narrative Resulting Agency Comment Spec In Lab Tony Monique MD CHEMISTRY ORDERABLES [facility] [place] [address] * EKG 12 Lead (02/14/2019 10:28 PM EDT) Ventricular rate 70 BPM MUSE SYSTEM Atrial Rate 70 BPM MUSE SYSTEM P-R Interval 162 ms MUSE SYSTEM QRS Duration 90 ms MUSE SYSTEM Q-T Interval 386 ms MUSE SYSTEM QTC Calculated (Bezet) 416 ms MUSE SYSTEM Calculated P [place] 48 degrees MUSE SYSTEM Calculated R [place] 7 degrees MUSE SYSTEM Calculated T [place] 33 degrees MUSE SYSTEM INTERPRETATION Sinus rhythm with Premature atrial complexes with Aberrant conduction Otherwise normal ECG When compared with ECG of 19-OCT-2007 07:46, Aberrant conduction is now Present T wave inversion no longer evident in Lateral leads Confirmed by MD Herminia, Jak ([id number]) on 02/15/2019 8:07:37 AM MUSE SYSTEM 02/14/2019 10:2 8 PM EDT 02/15/2019 8:07 AM EDT Tony Monique MD ECG ORDERABLES MUSE SYSTEM documented in this encounter Visit Diagnoses Diagnosis Anxiety Anxiety state, unspecified documented in this encounter Care Teams Instrumentation Tech Relationship Specialty Start Date End Date Brenda Canchola MD [address] [place] [address] PCP - General 06/01/10 03/25/19 documented as of this encounter
--- OUTSIDE RECORDS SUMMARY | 2024-03-04 21:29 | XMS_ITS | Encounter Summary ---
Author Organization [facility] [place] [address] Care Team Providers Care Athletic Shoe Designer Name Role Phone Luis E Narayan MD Primary Care Provider [phone] Reason for Referral * Consultation (Routine) - Closed Specialty Diagnoses / Procedures Referred By Gonzalez kumari Referred To Contact Sleep Center Diagnoses TITO (obstructive sleep apnea) Procedures PRG POLYLSOM 6+ YRS SLEEP W CPAP W 4+ ADDL ABHILASH Jhonny Garrett MD [facility] [place] [address] [facility] Sleep Medicine [address] [place] [address] Referral ID Status Reason Start Date Expiration Date V isits Requested Visits Authorized [id number] Closed Test Only 08/02/2019 01/30/2020 1 1 Reason for Visit * Consultation (Routine) - Specialty Diagnoses / Procedures Referred By Contchrissy kumari Referred To Contact Sleep Center Diagnoses TITO on CPAP Procedures PRG POLYSOM 6+ YRS SLEEP W 4+ ADDL ABHILASH Bonny Justin MD [place] [address] [facility] Sleep Medicine [address] [place] [address] Referral ID Status Reason Start Date Expiration Date Visits Requested Visits Authorized [id number] Specialty Service Requested 04/09/2019 04/08/2020 1 1 Encounter Details Date Type Department Care Team (Late st Contact Info) Description 05/09/2019 8:30 AM EDT Office Visit Sleep Center at [facility] [address] [place] [address] Jhonny Morataya MD [facility] [place] [address] RLS (restless legs syndrome); TITO (obstructive sleep apnea); Chronic insomnia Social History Tobacco Use Types Packs/Day Years [...] Sign Reading Time Taken Comments Blood Pressure 130/68 05/09/2019 9:53 AM EDT Pulse 63 05/09/2019 9:53 AM EDT Temperature - - Respiratory Rate - - Oxygen Saturation 99% 05/09/2019 9:53 AM EDT Inhaled Oxygen Concentration - - Weight 101.2 kg (223 lb) 05/09/2019 9:53 AM EDT Height 160.8 cm (5' 3.3) 05/09/2019 9:53 AM EDT Body Mass Index 39.13 05/09/2019 9:53 AM EDT documented in this encounter Patient Instructions * Patient Instructions* Jhonny Morataya MD - 05/09/2019 8:30 AM EDT -Dr Morataya will send a prescription to [facility] for a new CPAP and supplies. They will show you how to clean the machine. -Sleep study in the sleep laboratory to see what pressure of CPAP you need -Try decreasing the trazodone to 50 mg and see how you do. Can try stopping at that point. -Consider decreasing the caffeine down to 2 cups of coffee in the morning. Reduce gradually. -Blood work for RLS today -Sleep study with CPAP Insomnia recommendations as below: 1) Get up at the same time [...] drive. 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 You may resume driving once you feel alert. 12) Read No More Sleepless Nights by Mack Heaton PhD. 13) There are some on-line resources that do require a fee that can be of help. Two credible websites are as follows: http://www.GIGAS.Access Media 3 https://www.sleepio.com An star used by the [place] is as follows: CBT-I Sales Planning Coordinator documented in this encounter Progress Notes * Jhonny Morataya MD - 05/09/2019 8:30 AM EDT Sleep Medicine Consultation Note Chief Complaint: I need a new CPAP machine HPI: Ms. Patience Manjarrez is a 58 y.o. female seen at the request of Dr Bonny Emanuel for advice regarding obstructive sleep apnea. Accompanying the patient today is no one. She arrived 15-20 minutes late for this appointment as she got lost getting to the [facility][1]. Sleep Medicine Summary: Sleep Medicine Consultation 02/18/10 EDS and snoring in the setting of CAD and HTN PSG 03/05/10 @ 271 lbs AHI of 27, CMS AHI of 16, min saturation of 61%, significant desaturations in REM Mean saturation overnight asleep 90% with 75 minutes < 89% Wide complex ectopy noted Plan: CPAP titration CPAP titration 03/18/10 @ 271 lbs CPAP 4-15 cm tested 15 cm mostly effective NREM and REM supine Plan: CPAP 15 cm Visit 06/15/10 Changed from nm to FFM prior to visit Symptom improvement but not resolution (ongoing fatigue/sleepiness) on CPAP CC AHI of 2 Overnight oximtery 06/24/10 per telephone note 08/03/10 Saturations well maintained No need for oxygen Plan: no change in treatment Today: The patient returns for re-evaluation at the request of Dr Emanuel. The pateint reports she is hear because she feels she needs a new CPAP machine. She reports the heated humidifer does not seem to be working. Her CPAP it would appear is about 9 years old. She is unsure which HCC she used. She would like to go back to the heated humidity. The air pressure from the machine feels OK. She uses the CPAP every night and all night. Compliance card indicates current pressure of 15 cm with Cflex of 3. Compliance card indicates usage but because of a likely damaged flow sensor the download erroneouslywould suggest non-adherence. She appears to be adherent to CPAP based on download usage times The do wnload,however, cannot be used to determine efficacy. She uses CPAP even on naps. She uses a full face mask. After a while the mask starts to leak. The mask is about 3-4 mo old. She needs all new supplies. She reports she is very used to sleeping with CPAP. It is hard to fall asleep without the CPAP. Shefeels she needs the CPAP. She has a hard time verbalizing what were to happen if she were to skip CPAP as she so rarely skips it she reports. She uses trazodone to help her stay asleep. She has used it for many years. The trouble staying asleep is a very longstanding problem (probably years). Unclear why she had trouble sleeping. She used to sleep 2-3 hrs then wake - the trazodone helps with this so that she now sleeps better. She used to have trouble getting to sleep when she was on prednisone. She used prednisone transietnly over the summer. She is off prednisone and the trouble gettign to sleep has resolved. She used totake melatonin for this problem but she stopped melatonin as she does not need it anymore off the prednisone. She reports she is fatigued and sleepy. See below for more details. She is tired and sleepy an unclear frequency. She stopped the napping recently although still has the desire to nap for the last month. She pushes through. Sleepiness had been worse since she got sick in January - admitted to [facility]. She was admitted with possible pneumonia she reports in the setting of COPD. She describes a delerium during her illness this summer. She was treated with an antiobiotic and prednisone. She had almost daily napping prior to this illness. She attributed the napping to getting up at 5 am. She has been napping for a long time - unclear when it started. She recenlty gave up the napping in an attempt to improve her sleep quality. Snoring: unsure as she sleeps alone, last spring her daughter noted snoring when the patient slept one night without the CPAP upright in a chair Observed Apneas: sleeps alone Mouth Breathing at night: deferred Dry Mouth in morning: yes even with CPAP, not using humidifier with CPAP because it is broken Nocturnal Gasping: no Nasal Obstruction: yes - improved with flonase and an allergy pill, worse in spring and fall Weight: She reports she is losing weight, she estimates losing 15 lbs since the summer, intentionalweight loss. Weight today is 223 lbs. At her diagnostic study in 2009 she was 271 lbs. Sleep Pattern: Location: bedroom Bed/Recliner/Wedge: flat bed # of pillows under head: one Position: right side usually, occasionally prone Takes trazodone 100 mg, 20 min before going to bed. Bedtime: 9-10 pm Lights out: she might like at [employer] for 10-20 min Latency: asleep quickly Awakenings: she was waking up before the trazodone but now sleeps through the night with trazodone usually. She has not tried going without it recently. Sometimes she has a night of poor sleep and feels she has not slept. This occurs about 2 x per week - she feels she is awake but then notes time has gone by. She cannot provide further details about these bad nights. More likely to have a bad night if overtired. Wake time: 5:30 am, spontaneously. Occasionally sleeps later ie 7 am. Rise time: same Days off: same 7 days Shift Work: she not working Patients estimate of total sleep time: deferred Questionnaires: Patient-reported scores: [facility] 05/09/2019 [place] [facility] 10 (High Risk) Insomnia Severity Index - Paper [place] of 10 Daytime Symptoms: Upon Awakening: she may or may not feel rested Daytime fatigue/sleepiness: she feels tired during the day - this is a frequent issue Naps: no naps in the last month, she used to nap almost daily - see above Involuntary Dozing: over the summer after her illness she was dozing involuntarily; now she stays busy so does not doze off but thinks she would doze off if sedentary Cognitive Symptoms: cognitive problems since her illness over the summer, she is followed in neurology she reports. 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 She also describes a creepy crawling feeling below her knees. May keep her from sleep. Notes this problem nightly but does not usually keep her form sleep. Worse in the last year. Unclear when it started. She denies anemia, bleeding and dark tarry stools. Mother may have RLS. PLMS: unsure Narcolepsy: Hallucinations: deferred Paralysis: deferred Cataplexy: no Past/Childhood Sleep History: prior dx of TITO as above Family History: Family history of sleep disorders: RLS possibly in mother, Mother also on CPAP. Patient Active Problem List Diagnosis Code ??? Coronary artery disease involving [place] coronary artery of [place] heart with angina pectoris I25.119 ??? Altered mental status R41.82 ??? Abnormal MRI of head R93.0 ??? Mixed hyperlipidemia E78.2 ??? Essential hypertension I10 ??? Recurrent major depressive disorder, in remission F33.40 ??? Chronic bilateral low back pain without sciatica M54.5, G89.29 ??? TITO on CPAP G47.33, Z99.89 ??? Type 2 diabetes mellitus without long-term current use of insulin E11.65 Past Medical History: Diagnosis Date ??? Atherosclerosis of [place] coronary artery of [place] heart with angina pectoris 10/09/2007 History of angina status post myocardial infarction October 2007 with stenting x4 ??? CAD (coronary artery disease) October 12, 2007 ??? COPD (chronic obstructive pulmonary disease) ??? Depression ??? Diabetes mellitus borderline ??? High blood pressure ??? Hypercholesterolemia ??? Hypertension ??? Mental status change ??? Obesity ??? TITO (obstructive sleep apnea) ??? Polyneuropathy Past Surgical History: Procedure Laterality Date ??? SECTION ??? CORONARY ANGIOPLASTY WITH STENT PLACEMENT ??? KNEE SURGERY Current Outpatient Medications Medication Sig Dispense Refill ??? melatonin 5 [...] 3 ??? fluticasone propionate (FLONASE) 50 mcg/actuation [place], Suspension 50 sprays by Each Nare route [...] 2 times daily. 20 tablet 0 ??? fluticasone-salmeterol (ADVAIR HFA) 115-21 mcg/Actuation inhaler ??? ALBUTEROL SULFATE (PROVENTIL HFA INHL) No current facility-administered medications for this visit. Social History: Employment: Out of work, pursuing disability. Alcohol: none Smoking: yes - smokes 1 ppd or more, started age 13 Other drugs: no marijuana for months, used it now and then prior. Caffeine: up to 4 cups of coffee in am. Sometimes soda with lunch. Family: lives with a custodial manager but they have separate bedrooms ROS: CON: weight change: see HPI ENT: nasal obstruction: see HPI NEURO: sleep related headaches: no CV: chest pain: no Palpitations: no LE edema: yes - worsened over the summer when ill, getting better but not gone. PUL: SOB: no but uses inhalers, she never had SOB she reports she had coughing which prompted the inhaler prescription she reports PSY: Depression: doing better Anxiety: deferred GI: GERD: no : Nocturia: incontence worse since the summer to urine. She wears a diaper day and night. MSK: Pain that interferes with sleep: no ALL: Environmental Allergies: yes but treated MSE: Alert and appropriate: yes but speaks with an accent Oriented to person, place and time: 1/ person, 4/4 place, 3/4 time - says it is Monday but it is actually Mood: good Affect: full PE: General: Female in nad Body mass index is 39.13 kg/m??. Vitals: 05/09/19 0953 BP: 130/68 Pulse: 63 SpO2: 99% Weight: 101.2 kg (223 lb) Height: 160.8 cm (5' 3.3) Eyes: Conjunctival injection: injection in left sclera EOM: deferred Eyelid hooding: mild ENT: MP: 3/4 Facial deformity: none Hard palate: somewhat elevated Soft palate: low Gums and teeth: fair condition, missing some teeth Tongue: unremarkable Nares: patent Pul: Respirations: even and not labored Auscultation: deferred Waking saturation at rest: see above Neck/Lymphatics: Lymphadenopathy: no Masses: no Circumference: 17 inches Cardiac: LE edema over shins: one-two plus edema bilaterally Neuro: Rest tremor in UE bilatearlly: none Musculoskeletal: Gait and stance: walks independently Results for PATIENCE MANJARREZ ( ) as of 05/09/2019 09:41 Ref. Range 03/26/2019 21:53 Hemoglobin Latest Ref Range: 11.7 - 15.5 gm/dL 13.6 Hematocrit Latest Ref Range: 35.7 - 45.8 % 40.1 ECG 02/14/19: Sinus rhythm with Premature atrial complexes with Aberrant conduction Otherwise normal ECG When compared with ECG of 19-OCT-2007 07:46, Aberrant conduction is now Present T wave inversion no longer evident in Lateral leads Confirmed by MD Herminia, Jak ([id number]) on 02/15/2019 8:07:37 AM Assessment: Ms. Patience Manjarrez is a 58 y.o. female who is seen to re-evaluate obstructive sleep apnea. Despite weight loss given her prior TITO severity, comorbidities, age, and ongoing symptoms she likely still has obstructive sleep apnea. She has been compliantly using CPAP by her report. Her download indicates good usage but would suggest a damaged flow strip in her 10 year old machine (machineis on but not recording breathing). Given the age of her machine, likely damaged flow strip and nonfunctioning humidifier a replacement CPAP is recommended. She is need of all new supplies. She wouldlike a new CPAP with a new FFM. I will go ahead and prescribe a replacement CPAP and all new supplies through [facility]. Given her change in weight, dx of COPD, and ongoing symptoms a CPAPtitration is recommended. That will be scheduled today. The patient also endorses a chronic insomnia. Good sleep hygiene recommended with behavioral treatments for insomnia. Given that her insomnia seems to be less of an issue lately and daytime tiredness/sleepiness is her primary symptom today decreasing and possibly tapering off the trazodone suggested. She reports only taking this for insomnia. Gradually reducing caffeine also suggested. See AVS. The patient also describes probable RLS. It does not appear to be disruptive enough to warrant treatment today. I am also very reluctant to add a new medication given her ongoing cognitive issues since her health problems over the summer. We will start by checking iron indices today. Optimization of her TITO treatment may also help with the RLS. History provided by: patient Records reviewed:eDH Time spent face to face: n/a Time spent devoted to counseling and discussion: n/a The patient confirms that study results can be sent to them via [facility]. If a home care company is required the following home care company is requested: [facility] Recommendations: 1) Polysomnography in lab to titrate CPAP 2) Driving safety was reviewed with patient. If the patient feels too sleepy to drive he/she knows not to drive. 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 3) Replacement CPAP and supplies through [facility] 4) Try decreasing trazodone to 50 mg and if insomnia remains in remission consider stopping the medication. May resume at lowest effective dosage up to current dose. 5) Behavioral treatments for insomnia and good sleep hygiene - see avs 6) Hgb, Hct, Ferritin, Iron an TIBC to evaluate RLS 7) Follow up visit with KE to assess outcome on the new CPAP machine The patient indicates understanding of these issues and agrees with the plan. documented in this encounter Plan of Treatment Upcoming Encounters Date Type Department Care Team (Late st Contact Info) Description 03/20/2024 9:00 AM EDT TH Visit (TeleHealth) Sleep Center at [facility] [address] [place] [address] Denisse Hardwick, [facility] 03/20/2024 2:00 PM EDT Clinical Support Family Medicine at [facility] [address] [place] [address] Julia Low [facility] 05/01/2024 11:20 AM EDT Appointment Mammography/[place] [address] Rodney Padilla MD [address] [place] [place] [address] 05/01/2024 1:45 PM EDT Office Visit Ophthalmology at [place] [phone] Juanpablo Hernandez MD [facility] [place] [address] 01/30/2025 1:30 PM EDT Appointment Hematology [place] [address] 01/30/2025 3:[address] Scan at [place] [phone] Arturo Cordero MD [facility] HEMATOLOG[place] [address] 01/30/2025 4:15 PM EDT Office Visit Hematology [place] [address] Arturo Cordero MD [facility] HEMATOLOG[place] [address] Scheduled Referrals Name Type Priority Associated Diagnoses Orde r Schedule Referral to Sleep Disorders Center Outpatient Referral Routine TITO (obstructive sleep apnea) Ordered: 05/09/2019 documented as of this encounter Procedures Procedure Name Priority Date/Time Associated Diagnosis Comments HC IRON BINDING CAPACITY Routine 05/09/2019 10:19 AM EDT RLS (restless legs syndrome) HC VENIPUNCTURE Routine 05/09/2019 10:19 AM EDT RLS (restless legs syndrome) HC HEMATOCRIT, BLOOD Routine 05/09/2019 10:19 AM EDT RLS (restless legs syndrome) HC FERRITIN, SERUM Routine 05/09/2019 10 :19 AM EDT RLS (restless legs syndrome) documented in this encounter Results * Hemoglobin (05/09/2019 10:19 AM EDT) Hemoglobin 13.5 11.7 - 15.5 gm/dL [facility] Blood specimen (specimen) 05/09/2019 10:19 AM EDT 05/09/2019 12:53 PM EDT Narrative Resulting Agency Comment Spec In Lab Jhonny Morataya MD HEMATOLOGY ORDERABLE S [facility] [place] [address] * Hematocrit (05/09/2019 10:19 AM EDT) Hematocrit 41.5 35.7 - 45.8 % [facility] Blood specimen (specimen) 05/09/2019 10:19 AM EDT 05/09/2019 12:53 PM EDT Narrative Resulting Agency Comment Spec In Lab Jhonny Morataya MD HEMATOLOGY ORDERABLE S [facility] [place] [address] * (ABNORMAL) Iron and TIBC (05/09/2019 10:19 AM EDT) Iron 46 30 - 150 mcg/dL [facility] TIBC 363 250 - 450 mcg/dL [facility] Iron Saturation 13(L) 20 - 50 % [facility] Blood specimen (specimen) 05/09/2019 10:19 AM EDT 05/09/2019 12:54 PM EDT Narrative Resulting Agency Comment Spec In Lab Jhonny Morataya MD CHEMISTRY ORDERABLES Performing Organization Address City/[facility]/ZIP Co de Phone Number [facility] [place] [address] * Ferritin (05/09/2019 10:19 AM EDT) Ferritin 55 30 - 400 ng/mL [facility] Comment: Pediatric reference ranges not verified at [facility], interpret with caution. Reference ranges for females greater than 50 years of age approach values for men, i.e., 30-400 ng/mL. Blood specimen (specimen) 05/09/2019 10:19 AM EDT 05/09/2019 12:53 PM EDT Narrative Resulting Agency Comment Spec In Lab Jhonny Morataya MD CHEMISTRY ORDERABLES Performing Organization Address City/[facility]/ZIP Co de Phone Number [facility] [place] [address] documented in this encounter Visit Diagnoses Diagnosis RLS (restless legs syndrome) Restless legs syndrome (RLS) TITO (obstructive sleep apnea) Obstructive sleep apnea (adult) (pediatric) Chronic insomnia Insomnia, unspecified documented in this encounter Care Teams Athletic Shoe Designer Relationship Specialty Start Date End Date Luis E Narayan MD [facility] [address] [place] [address] PCP - General Family Medicine 03/26/19 01/19/22 documented as of this encounter
--- OUTSIDE RECORDS SUMMARY | 2024-03-04 21:29 | XMS_ITS | Encounter Summary ---
Author Organization [facility] [place] [address] Care Team Providers Care Ornamenter Name Role Phone Brenda Canchola MD Primary Care Provider [phone] Encounter Details Date Type Department Care Team (Late st Contact Info) Description 01/31/2014 Ancillary Procedure [place] [address] Luis E Narayan MD [facility] [address] [address] Social History Tobacco Use Types Packs/Day Years [...] at [facility] [address] [place] [phone] Denisse Hardwick [facility] 03/20/2024 2:00 PM EDT Clinical Support Family Medicine [facility] [address] [place] [phone] Julia Low, [facility] 05/01/2024 11:20 AM EDT Appointment Mammography/[place] [address] Rodney Padilla MD [address] [place] [address] 05/01/2024 1:45 PM EDT Office [place] [address] Juanpablo Hernandez MD [facility] [place] [address] 01/30/2025 1:30 PM EDT Appointment Hematology and Oncology at [place] [address] 01/30/2025 3:[address] [place] [address] Arturo Cordero MD [facility] [place] [address] 01/30/2025 4:15 PM EDT Office Visit Hematology and Oncology at [place] [phone] Arturo Cordero MD [facility] DR HEMATOLOGY [place] [address] documented as of this encounter Procedures Procedure Name Priority Date/Time Associated Diagnosis Comments FILM LIBRARY STORAGE ONLY MAMMO Routine 01/31/2014 12:00 AM EDT documented in this encounter Results * Film Library- Storage Only Mammo (01/31/2014 12:00 AM EDT) Narrative [facility] - 05/24/2019 9:46 PM EST This exam is auto-finalizing. It's purpose is for storage only. Luis E Narayan MD IMG FILM LIBRARY OR DERABLES Performing Organization Address City/State/[facility] Co de Phone Number [place], [place] documented in this encounter Visit Diagnoses Not on filedocumented in this encounter Care Teams Ornamenter Relationship Specialty Start Date End Date Brenda Canchola MD [address] [place] [address] PCP - General 06/01/10 03/25/19 documented as of this encounter
--- OUTSIDE RECORDS SUMMARY | 2024-03-04 21:29 | XMS_ITS | Encounter Summary ---
Author Organization [facility] [place] [address] Care Team Providers Care Confectionery Maker Name Role Phone Brenda Canchola MD Primary Care Provider Encounter Details Date Type Department Care Team (Late st Contact Info) Description 03/18/2019 Ancillary Procedure [place] [address] Luis E Narayan MD [facility] [address] [place] [address] Social History Tobacco Use Types Packs/Day Years [...] EDT TH Visit (TeleHealth) Sleep Center at [facility] [address] [place] [phone] Denisse Hardwick [facility] 03/20/2024 2:00 PM EDT Clinical Support Family Medicine [facility] [address] [place] [phone] Julia Low, [facility] 05/01/2024 11:20 AM EDT Appointment Mammography/DXA at [place] [phone] Rodney Padilla MD [address] [place] [address] 05/01/2024 1:45 PM EDT Office Visit Ophthalmology at [place] [phone] Juanpablo Hernandez MD [facility] [place] [address] 01/30/2025 1:30 PM EDT Appointment Hematology and Oncology at [place] [address] 01/30/2025 3:[address] Scan at [place] [phone] Arturo Cordero MD [facility] DR [place] [address] 01/30/2025 4:15 PM EDT Office Visit Hematology and Oncology at [place] [phone] Arturo Cordero MD [facility] DR [place] [address] documented as of this encounter Procedures Procedure Name Priority Date/Time Associated Diagnosis Comments FILM LIBRARY STORAGE ONLY ULTRASOUND STUDY STAT 03/18/2019 12:00 AM EDT documented in this encounter Results * Film Library- Storage Only Ultrasound Study (03/18/2019 12:00 AM EDT) Narrative [facility] NAMED [facility] - 03/28/2019 11:02 AM EDT This exam is auto-finalizing. It's purpose is for storage only. Luis E Narayan MD IMG FILM LIBRARY OR DERABLES Performing Organization Address City/State/[facility] Co de Phone Number [place], [place] documented in this encounter Visit Diagnoses Not on filedocumented in this encounter Care Teams Confectionery Maker Relationship Specialty Start Date End Date Brenda Canchola MD [address] [place] [address] PCP - General 06/01/10 03/25/19 documented as of this encounter
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
--- OUTSIDE RECORDS SUMMARY | 2024-03-04 21:30 | XMS_ITS | Encounter Summary ---
Author Organization [facility] Address [facility] [place] [address] Care Team Providers Care Radiology Ct Technologist Name Role Phone Brenda Canchola MD Primary Care Provider [phone] Encounter Details Date Type Department Care Team (Late st Contact Info) Description 06/15/2010 2:35 PM EST [place] [address] Sterling Dubois MD SLEEP CLINIC [facility] [place] [address] Social History Tobacco Use Types Packs/Day Years [...] [facility] [address] [place] [address] Denisse Hardwick, [facility] 03/20/2024 2:00 PM EDT Clinical Support Family Medicine at [facility] [address] [place] [phone] Julia Low [facility] 05/01/2024 11:20 AM EDT Appointment Mammography/[place] [phone] Rodney Padilla MD [address] [place] [place] [address] 05/01/2024 1:45 PM EDT Office Visit Ophthalmology at [place] [phone] Juanpablo Hernandez MD [facility] [place] [address] 01/30/2025 1:30 PM EDT Appointment Hematology and Oncology at [place] [address] 01/30/2025 3:[address] Scan at [place] [phone] Arturo Cordero MD [facility] [place] [address] 01/30/2025 4:15 PM EDT Office Visit Hematology and Oncology at [place] [phone] Arturo Cordero MD [facility] [place] [address] documented as of this encounter Visit Diagnoses Not on filedocumented in this encounter Care Teams Radiology Ct Technologist Relationship Specialty Start Date End Date Brenda Canchola MD [address] [place] [address] PCP - General 06/01/10 03/25/19 documented as of this encounter
--- OUTSIDE RECORDS SUMMARY | 2024-03-04 21:30 | XMS_ITS | Encounter Summary ---
Author Organization Formerly [facility] [place] [address] Care Team Providers Care Nuclear Fuel Processing Technician Name Role Phone Unavailable Primary Care Provider Unavailabl e Encounter Details Date Type Department Care Team (Late st Contact Info) Description 03/09/2009 Ancillary Procedure [place] [address] Luis E Narayan MD [facility]ILI [place] [address] Social History Tobacco Use Types Packs/Day Years [...] at [facility] [address] [place] [address] Denisse Hardwick, [facility] 03/20/2024 2:00 PM EDT Clinical Support Family Medicine at [facility] [address] [place] [address] Julia Low RP 05/01/2024 11:20 AM EDT Appointment Mammography/[place] [address] Rodney Padilla MD [address] [place] [address] 05/01/2024 1:45 PM EDT Office [place] [address] Juanpablo Hernandez MD [facility] [place] [address] 01/30/2025 1:30 PM EDT Appointment Hematology [place] [address] 01/30/2025 3:[address] [place] [address] Arturo Cordero MD [facility] [address] [place] [address] 01/30/2025 4:15 PM EDT Office Visit Hematology [place] [address] Arturo Cordero MD [facility] DR [place] [address] documented as of this encounter Procedures Procedure Name Priority Date/Time Associated Diagnosis Comments FILM LIBRARY STORAGE ONLY MAMMO Routine 03/09/2009 12:00 AM EDT documented in this encounter Results * Film Library- Storage Only Mammo (03/09/2009 12:00 AM EDT) Narrative [facility] - 05/24/2019 9:41 PM EST This exam is auto-finalizing. It's purpose is for storage only. Luis E Narayan MD IMG FILM LIBRARY OR DERABLES [place], [place] documented in this encounter Visit Diagnoses Not on filedocumented in this encounter
--- OUTSIDE RECORDS SUMMARY | 2024-03-04 21:30 | XMS_ITS | Encounter Summary ---
Author Organization [facility] Address [facility] [place] [place] [address] Care Team Providers Care Publicity Agent Name Role Phone Brenda Canchola MD Primary Care Provider [phone] Encounter Details Date Type Department Care Team (Late st Contact Info) Description 06/15/2010 2:40 PM EST Follow-Up [place] [address] Noreen Brambila MD [facility] [place] [address] Social History Tobacco Use Types Packs/Day Years [...] [facility] [address] [place] [address] Denisse Hardwick [facility] 03/20/2024 2:00 PM EDT Clinical Support Family Medicine at [facility] [address] [place] [address] Julia Low [facility] 05/01/2024 11:20 AM EDT Appointment Mammography/DXA at [place] [phone] Rodney Padilla MD [address] FAMILY MEDICINE [place] [id number] 05/01/2024 1:45 PM EDT Office Visit Ophthalmology at [place] [address] Juanpablo Hernandez MD [facility] [place] [address] 01/30/2025 1:30 PM EDT Appointment Hematology and Oncology at [place] [address] 01/30/2025 3:[address] [place] [address] Arturo Cordero MD [facility] DR HEMATOLOGY [place] [address] 01/30/2025 4:15 PM EDT Office Visit Hematology and Oncology at [place] [address] Arturo Cordero MD [facility] DR HEMATOLOGY [place] [address] documented as of this encounter Visit Diagnoses Not on filedocumented in this encounter Care Teams Publicity Agent Relationship Specialty Start Date End Date Brenda Canchola MD [address] [place] [address] PCP - General 06/01/10 03/25/19 documented as of this encounter
--- OUTSIDE RECORDS SUMMARY | 2024-03-04 21:30 | XMS_ITS | Encounter Summary ---
Author Organization [facility] [place] [address] Care Team Providers Care Die Casting Machine Setter Name Role Phone Brenda Canchola MD Primary Care Provider [phone] Encounter Details Date Type Department Care Team (Late st Contact Info) Description 09/15/2011 Ancillary Procedure [place] [address] Luis E Narayan MD [facility] DR LILI [place] [address] Social History Tobacco Use Types Packs/Day Years [...] Center at [facility] [address] [place] [address] Denisse Hardwick [facility] 03/20/2024 2:00 PM EDT Clinical Support Family Medicine [facility] [address] [place] [address] Julia Low, [facility] 05/01/2024 11:20 AM EDT Appointment Mammography/[place] [address] Rodney Padilla MD [address] [place] [address] 05/01/2024 1:45 PM EDT Office [place] [address] Juanpablo Hernandez MD [facility] [place] [address] 01/30/2025 1:30 PM EDT Appointment Hematology and Oncology at [place] [address] 01/30/2025 3:[address] [place] [address] Arturo Cordero MD [facility] [address] [place] [address] 01/30/2025 4:15 PM EDT Office Visit Hematology and Oncology at [place] [phone] Arturo Cordero MD [facility] [address] [place] [address] documented as of this encounter Procedures Procedure Name Priority Date/Time Associated Diagnosis Comments FILM LIBRARY STORAGE ONLY MAMMO Routine 09/15/2011 12:00 AM EST documented in this encounter Results * Film Library- Storage Only Mammo (09/15/2011 12:00 AM EST) Narrative [facility] - 05/24/2019 9:40 PM EST This exam is auto-finalizing. It's purpose is for storage only. Luis E Narayan MD IMG FILM LIBRARY OR DERABLES [place], [place] documented in this encounter Visit Diagnoses Not on filedocumented in this encounter Care Teams Die Casting Machine Setter Relationship Specialty Start Date End Date Brenda Canchola MD [address] [place] [address] PCP - General 06/01/10 03/25/19 documented as of this encounter
--- OUTSIDE RECORDS SUMMARY | 2024-03-04 21:30 | XMS_ITS | Encounter Summary ---
Author Organization [facility] [place] [address] Care Team Providers Care Investigator Fraud Name Role Phone Unavailable Primary Care Provider Unavailabl e Encounter Details Date Type Department Care Team (Late st Contact Info) Description 03/11/2009 Ancillary Procedure [place] [address] Luis E Narayan MD [facility] DR LILI AZEVED[place] [address] Social History Tobacco Use Types Packs/Day Years [...] [facility] [address] [place] [address] Denisse Hardwick, [facility] 03/20/2024 2:00 PM EDT Clinical Support Family Medicine at [facility] [address] [place] [address] Julia Low RP 05/01/2024 11:20 AM EDT Appointment Mammography/[place] [address] Rodney Padilla MD [address] [place] [address] 05/01/2024 1:45 PM EDT Office [place] [address] Juanpablo Hernandez MD [facility] [place] [address] 01/30/2025 1:30 PM EDT Appointment Hematology [place] [address] 01/30/2025 3:[address] [place] [address] Arturo Cordero MD [facility] DR HEMATOLOGY [place] [address] 01/30/2025 4:15 PM EDT Office Visit Hematology [place] [address] Arturo Cordero MD [facility] DR [place]EMAT[place] [address] documented as of this encounter Procedures Procedure Name Priority Date/Time Associated Diagnosis Comments FILM LIBRARY STORAGE ONLY MAMMO Routine 03/11/2009 12:00 AM EDT documented in this encounter Results * Film Library- Storage Only Mammo (03/11/2009 12:00 AM EDT) Narrative [facility] - 05/24/2019 9:42 PM EST This exam is auto-finalizing. It's purpose is for storage only. Luis E Narayan MD IMG FILM LIBRARY OR DERABLES [place], [place] documented in this encounter Visit Diagnoses Not on filedocumented in this encounter
--- OUTSIDE RECORDS SUMMARY | 2024-03-04 21:30 | XMS_ITS | Encounter Summary ---
[place] [address] Care Team Providers Care Hydraulic Plumber Name Role Phone Brenda Canchola MD Primary Care Provider [phone] Reason for Visit * Reason Comments Follow-up neurocognitive impai rment Encounter Details Date Type Department Care Team (Late st Contact Info) Description 10/14/2010 3:00 PM EDT [place] [address] Chuy Barbosa MD [facility] [place] [address] Forgetfulness (Primary Dx) Discharge Disposition: Home Social History Tobacco Use Types Packs/Day Years Used Date Smoking Tobacco: Every Day Cigarettes Tobacco Cessation:Ready to Q uit: No Alcohol Use Standard Drinks/Week Comments No 0 (1 standard drink = 0.6 oz pur e alcohol) Sex and Gender Information Value Date Recorded Sex Assigned at Not on file Gender Identity Not on file Sexual Orientation Not on file documented as of this encounter Last Filed Vital Signs Vital Sign Reading Time Taken Comments Blood Pressure 138/85 10/14/2010 3:01 PM EDT Pulse 68 10/14/2010 3:01 PM EDT Temperature - - Respiratory Rate - - Oxygen Saturation - - Inhaled Oxygen Concentration - - Weight - - Height - - Body Mass Index - - documented in this encounter Patient Instructions * Patient Instructions* Chuy Barbosa MD - 10/14/2010 4:39 PM EDT 1. MRI of the brain with and without gadolinium: Susceptibility weighted imaging to evaluate for microhemorrhages in as well as T2 signal abnormalities from vascular disease to explain cognitive difficulty. 2. Await interpretation of the neuropsychological testing. 3. Based on the first 2 studies, consider psychological/psychiatric referral to evaluate other psychiatric causes of cognitive difficulty. documented in this encounter Progress Notes * Chuy Barbosa MD - 10/14/2010 4:28 PM EDT Subjective: Patient ID: Alize Gramajo is a 49 y.o. female. HPI Comments: The patient returns in followup for mental status changes that reached its greatest shortly following cardiac stenting as well as a small myocardial infarction. Since then, she has had a number of complaints with difficulty thinking. It takes her a long time to get from point A to point see when trying to make her point across.she has not had any major change in personality. She denies any significant depression although admits that she may have had some mild depression in the past. Her sleep is improved, now that she is on a CPAP machine. Review of Systems Constitutional: Negative. Psychiatric/Behavioral: Positive for altered mental status. Objective: Physical Exam Vitals reviewed. Constitutional: She is well-developed, well-nourished, and in no distress. Neurologic Exam She is an excellent historian. Able to recall and fine detail the discussion that she had during the neuropsychological evaluation. Long-term memory appears to be intact. Speech is fluent. Cranial nerves are intact. No signs of focal weakness. Gait is narrow based with normal arm swing. Assessment and Plan: She has had a history of altered mental status that was most acute following her coronary artery stenting. Many possibilities but treatable causes of cognitive impairment has been ruled out, but to complete the evaluation, I would like to obtain an MRI of the brain for Susceptibility weighted imaging as well as T2 signal evaluation to look for vascular ischemic disease. I will await the report from the neuropsychological testing. Based on the results of this testing, I will consider whether he would be appropriate to refer her to psychiatry to evaluate Psychiatric causes a cognitive impairment. documented in this encounter Miscellaneous Notes * Assessment & Plan Note - Chuy Barbosa MD - 10/14/2010 5:34 PM EDTAssociated Problem(s): Altered mental status The patient returns for followup regarding reviewing [...] a steady improvement ever since that hospitalization.. documented in this encounter Plan of Treatment Upcoming Encounters Date Type Department Care Team (Late st Contact Info) Description 03/20/2024 9:00 AM EDT TH Visit (TeleHealth) Sleep Center at [facility] [address] [place] [address] Denisse Hardwick, [facility] 03/20/2024 2:00 PM EDT Clinical Support Family Medicine [facility] [address] [place] [address] Julia Low, [facility] 05/01/2024 11:20 AM EDT Appointment Mammography/[place] [address] Rodney Padilla MD [address] [facility] [place], [place] [phone] 05/01/2024 1:45 PM EDT Office [place] [address] Juanpablo Hernandez MD [facility] [place] [place] [address] 01/30/2025 1:30 PM EDT Appointment H[place]ology [place] [address] 01/30/2025 3:[address] [place] [address] Arturo Cordero MD [facility] [address] [place] [address] 01/30/2025 4:15 PM EDT Office Visit [place]ematology [place] [address] Arturo Cordero MD [facility] DR [place] [address] documented as of this encounter Visit Diagnoses Diagnosis Forgetfulness- Primary Other general symptoms documented in this encounter Care Teams Hydraulic Plumber Relationship Specialty Start Date End Date Brenda Canchola MD [address] [address] PCP - General 06/01/10 03/25/19 documented as of this encounter
--- OUTSIDE RECORDS SUMMARY | 2024-03-04 21:30 | XMS_ITS | Encounter Summary ---
Author Organization [facility] [place] [address] Care Team Providers Care Waffle Machine Operator Name Role Phone Unavailable Primary Care Provider Unavailabl e Encounter Details Date Type Department Care Team (Late st Contact Info) Description 03/10/2010 Ancillary Procedure [place] [address] Luis E Narayan MD [facility] DR LILI [place] [address] Social History Tobacco Use Types Packs/Day Years [...] [facility] [address] [place] [address] Denisse Hardwick, [facility] 03/20/2024 2:00 PM EDT Clinical Support Family Medicine at [facility] [address] [place] [address] Julia Low RP 05/01/2024 11:20 AM EDT Appointment Mammography/[place] [address] Rodney Padilla MD [address] [place] [address] 05/01/2024 1:45 PM EDT Office [place] [address] Juanpablo Hernandez MD [facility] [place] [address] 01/30/2025 1:30 PM EDT Appointment Hematology [place] [address] 01/30/2025 3:[address] [place] [address] Arturo Cordero MD [facility] DR [place] [address] 01/30/2025 4:15 PM EDT Office Visit Hematology [place] [address] Arturo Cordero MD [facility] DR [place] [address] documented as of this encounter Procedures Procedure Name Priority Date/Time Associated Diagnosis Comments FILM LIBRARY STORAGE ONLY MAMMO Routine 03/10/2010 12:00 AM EDT documented in this encounter Results * Film Library- Storage Only Mammo (03/10/2010 12:00 AM EDT) Narrative [facility] - 05/24/2019 9:43 PM EST This exam is auto-finalizing. It's purpose is for storage only. Luis E Narayan MD IMG FILM LIBRARY OR DERABLES [place], [place] documented in this encounter Visit Diagnoses Not on filedocumented in this encounter
--- OUTSIDE RECORDS SUMMARY | 2024-03-04 21:30 | XMS_ITS | Encounter Summary ---
Author Organization [facility] Address [facility] [place] [address] Care Team Providers Care Dyed Raw Stock Blower Feeder Name Role Phone Brenda Canchola MD Primary Care Provider [phone] Encounter Details Date Type Department Care Team (Late st Contact Info) Description 07/14/2010 2:30 PM EST Follow-[place] [address] Chuy Barbosa MD [facility] [place] [address] Discharge Disposition: Home Social History Tobacco Use [...] [facility] [address] [place] [address] Denisse Hardwick [facility] 03/20/2024 2:00 PM EDT Clinical Support Family Medicine at [facility] [address] [place] [address] Julia Low, [facility] 05/01/2024 11:20 AM EDT Appointment Mammography/DXA at [place] [phone] Rodney Paidlla MD [address] [facility] [place] [id number] 05/01/2024 1:45 PM EDT Office Visit Ophthalmology at [place] [address] Juanpablo Hernandez MD [facility] [place] [address] 01/30/2025 1:30 PM EDT Appointment Hematology and Oncology at [place] [address] 01/30/2025 3:[address] Scan [place] [address] Atruro Cordero MD [facility] [place] [address] 01/30/2025 4:15 PM EDT Office Visit Hematology [place] [address] Arturo Cordero MD [facility] [address] [place] [address] documented as of this encounter Visit Diagnoses Not on filedocumented in this encounter Care Teams Dyed Raw Stock Blower Feeder Relationship Specialty Start Date End Date Brenda Canchola MD [address] [place] [address] PCP - General 06/01/10 03/25/19 documented as of this encounter
[2024-03-04] MEDS: Omnipaque 350 MG/ML 100 ML BTL IJ (21:56)
[2024-03-04] MEDS: Normal Saline Flush 10 ML SYR IVP (21:57)
[2024-03-04 22:02] LABS: Abs Immature Grans 0.05 10^3/uL (0.0-0.06); Absolute Basophil Count 0.05 10^3/uL (0.0-0.2); Absolute Eosinophil Count 0.12 10^3/uL (0.0-0.7); Absolute Lymphocyte Count 3.24 10^3/uL (1.2-3.4); Absolute Monocyte Count 0.59 10^3/uL (0.1-0.8); Basophils % 0.5 %; Eosinophils % 1.2 %; HCT 41.1 % (36.0-46.0); HGB 13.7 g/dL (11.2-15.7); Immature Grans % 0.5 %; Lymphocytes % 33.2 %; MCH 29.4 pg (27.0-33.0); MCHC 33.3 % (32.0-36.0); MCV 88 fL (80-95); MPV 9.5 fL (8.0-11.0); Monocytes % 6.1 %; Neutrophils % 58.5 %; Platelet Count 377 10^3/uL (130-400); RBC 4.66 10^6/uL (3.93-5.22); RDW 14.2 % (11.7-14.6); RDW-SD 46.1 fL; WBC 9.75 10^3/uL (4.4-10.8)
[2024-03-04 22:20] LABS: ALT 33 U/L (14-59); AST 19 U/L (15-37); Alkaline Phosphatase 96 U/L (46-116); Anion Gap 7.8 mmol/L (3-11); BUN 10 mg/dL (7-18); Bilirubin, Total 0.34 mg/dL (0.2-1.0); CO2 27.2 mmol/L (21.0-32.0); Chloride 104 mmol/L (98-107); Estimated GFR 62.91 (mL/min/1.73m2); Glucose 162 mg/dL (74-106); Lipase 68 U/L (16-77); Potassium 3.7 mmol/L (3.5-5.1); Sodium 139 mmol/L (136-145); Total Protein 7.7 g/dL (6.4-8.2)
[2024-03-04 22:28] LABS: Bilirubin Negative (Negative); Blood Negative (Negative); Clarity Clear (Clear); Glucose Negative (Negative); Ketones Negative (Negative); Leukocyte Esterase Negative (Negative); Nitrite Negative (Negative); Urobilinogen 0.2 mg/dL (Up to 0.2); pH 6.5 (5-8)
[2024-03-04 22:31] LABS: Calcium 9.2 mg/dL (8.5-10.1)
--- NOTE | 2024-03-04 23:06 | ED.GENADUL_ITS ---
Discharge Plan Disposition Patient Disposition: Home Condition: Stable Discharge Details Clinical Impression: Abdominal bloating Primary Care Provider: Luis E Narayan ED Provider: Vijaya Bernal Home Meds and New Rx's Prescriptions: New dicyclomine 10 mg capsule 10 mg PO TID Qty: 14 0RF Continued (DME) Aerochamber MV spacer See Dose Instructions .Route .MEDSUPPLY Qty: 1 0RF Dose Instruction: As directed Rx Instructions: As directed fluticasone propionate [Flonase Allergy Relief] 50 mcg/actuation spray ,suspension 1 spray KUMAR BID PRN (Reason: nasal congestion) Qty: 9.9 3RF Rx Instructions: administer into each nostril loratadine [Claritin] 10 mg tablet 10 mg PO DAILY lorazepam 1 mg tablet 0.5 - 1 mg PO BID PRN (Reason: anxiety) Qty: 30 0RF Rx Instructions: 12/06/20 PT USES 1 MG AT HS AND 0.5 MG AT NOON meclizine 25 mg tablet 25 mg PO BID PRN (Reason: dizziness) Qty: 10 0RF Rx Instructions: for vertigo nitroglycerin 0.4 mg tablet, sublingual 0.4 mg Sublingual PRN Qty: 25 2RF Rx Instructions: 1 TAB SL PRN melatonin 10 mg capsule 10 mg PO HS PRN Adult 50 Plus Probiotic 4 billion cell capsule 4,000 mmu cells PO DAILY Qty: 30 0RF Rx Instructions: administer with a meal pantoprazole [Protonix] 40 mg tablet,delayed release (DR/EC) 40 mg PO DAILY Qty: 30 12RF ipratropium-albuterol 0.5 mg-3 mg(2.5 mg base)/3 mL solution for nebulization 3 ml inhalation Q4H PRN (Reason: wheezing) Qty: 90 0RF acetaminophen [Tylenol] 325 MG tablet 650 mg PO Q4H PRN CPAP (DME) lancets [OneTouch Delica Lancets] 1 EACH misc 1 ea Intradermal BID Qty: 200 Rx Instructions: DX: 250.00 (DME) OneTouch Ultra Test 1 EACH strip 1 strip Miscellaneous DAILY Qty: 100 Rx Instructions: DX: 250.00 oral meds amlodipine 5 mg tablet 5 mg PO DAILY Qty: 90 4RF Rx Instructions: 1 TAB DAILY clopidogrel [Plavix] 75 mg tablet 75 mg PO DAILY Qty: 90 4RF Metoprolol Succinate 25 MG TAB.ER.24H 25 mg PO DAILY Qty: 90 4RF Rx Instructions: 1 TAB DAILY simvastatin 10 mg tablet 10 mg PO DAILY Qty: 90 4RF Rx Instructions: 1 TAB DAILY losartan [Cozaar] 100 mg tablet 100 mg PO DAILY Qty: 90 4RF Rx Instructions: 1 TAB DAILY albuterol sulfate [Ventolin HFA] 90 mcg/actuation HFA aerosol inhaler 2 puff IH Q4H PRN (Reason: shortness of breath or wheezing) Qty: 8.5 11RF sucralfate 100 mg/mL suspension 10 ml PO QID Rx Instructions: swish in mouth and swallow; use after food/drink buspirone 30 mg tablet 30 mg PO BID aspirin 81 mg Tablet,Delayed Release (Dr/Ec) 81 mg PO DAILY lamotrigine 100 mg tablet 100 mg PO QAM Patient Comments: TAKE ONE TABLET BY MOUTH TWICE A DAY trazodone 50 mg tablet 100 mg PO HS PRN Rx Instructions: 1-tab at HS PRN (DME) nebulizers [Aeroneb Go Nebulizer] [facility] See Rx Instructions .Route Qty: 1 0RF Rx Instructions: As directed insulin glargine 100 unit/mL Cartridge 10 unit SUBCUT BID metformin 500 mg tablet 1,000 mg PO BID (DME) blood-glucose meter [FreeStyle Lite Meter] Kit See Rx Instructions .ROUTE .MEDSUPPLY Qty: 1 0RF Rx Instructions: As directed (DME) FreeStyle Lite Strips Strip See Rx Instructions .ROUTE .MEDSUPPLY Qty: 10 0RF Rx Instructions: As directed Discharge Instructions Instructions: Gas and bloating Additional Instructions: simethicone and take a probiotic daily may try taking bentyl as needed for bloating and discomfort follow-up with pcp in 2-3 days return earlierwith new or worsening complaints Referrals: Luis E Narayan [Primary Care Provider] - 2 days Discharge Data Discharge Date/Time-TO BE ENTERED AT DEPARTURE: 03/05/24 00:24 HPI General Date/Time Provider Initiated Documentation: 03/04/24 21:02 . HPI Narrative: this 63 yo female presents with report of abdominal pain, recurrent with hx of renal cell carcinoma. states she's had several colonoscopies without obvious reason for complaints. denies changes with this states her symptoms are identical that she has received multiple evaluations for this cath. had some increased stressors in her life. Related Data Home Medications ?Medication ?Instructions ?Recorded ?Confirmed Cpap 10/24/12 12/05/23 acetaminophen 325 mg tablet 650 mg PO Q4H PRN 10/24/12 03/04/24 (Tylenol) lancets 33 gauge (OneTouch Delica #200 ea 12/15/12 03/04/24 Lancets) blood sugar diagnostic (OneTouch #100 strips 01/24/14 03/04/24 Ultra Test strips) inhalational spacing device #1 ea 05/01/18 03/04/24 (Aerochamber MV spacer) nitroglycerin 0.4 mg sublingual 0.4 mg sublingual PRN #25 tab-caps 05/04/18 03/04/24 tablet amlodipine 5 mg tablet 5 mg PO DAILY #90 tab-caps 07/27/18 03/04/24 clopidogrel 75 mg tablet (Plavix) 75 mg PO DAILY #90 tabs 07/27/18 03/04/24 simvastatin 10 mg tablet 10 mg PO DAILY #90 tab-caps 07/31/18 03/04/24 losartan 100 mg tablet (Cozaar) 100 mg PO DAILY #90 tab-caps 12/27/18 03/04/24 fluticasone propionate 50 1 spray intranasal BID PRN nasal 02/03/19 03/04/24 mcg/actuation nasal congestion #9.9 grams spray,suspension (Flonase Allergy Relief) loratadine 10 mg tablet (Claritin) 10 mg PO DAILY 02/03/19 03/04/24 lorazepam 1 mg tablet 0.5 - 1 mg (0.5 - 1 x 1 mg) PO BID 02/19/19 03/04/24 PRN anxiety #30 tabs albuterol sulfate 90 mcg/actuation 2 puff inhalation Q4H PRN 08/29/19 03/04/24 aerosol inhaler (Ventolin HFA) shortness of breath or wheezing #8.5 grams metformin 500 mg tablet 1,000 mg PO BID 09/12/19 03/04/24 aspirin 81 mg tablet,delayed 81 mg PO DAILY 08/17/20 03/04/24 release lamotrigine 100 mg tablet 100 mg PO QAM 08/17/20 03/04/24 trazodone 50 mg tablet 100 mg PO HS PRN 08/17/20 03/04/24 blood sugar diagnostic (FreeStyle #10 ea 12/06/20 03/04/24 Lite Strips) blood-glucose meter (FreeStyle #1 ea 12/06/20 03/04/24 Lite Meter kit) melatonin 10 mg capsule 10 mg PO HS PRN 02/23/21 03/04/24 lactobacillus combination no.9 4 4,000 mmu cells PO DAILY #30 caps 10/13/21 03/04/24 billion cell capsule (Adult 50 Plus Probiotic) pantoprazole 40 mg tablet,delayed 40 mg PO DAILY #30 tabs 11/25/21 03/04/24 release (Protonix) nebulizers (wali Go Nebulizer) #1 ea 04/03/22 03/04/24 insulin glargine 100 unit/mL 10 unit subcut BID 01/07/23 03/04/24 subcutaneous cartridge buspirone 30 mg tablet 30 mg PO BID 03/16/23 03/04/24 sucralfate 100 mg/mL oral 10 ml PO QID 03/16/23 03/04/24 suspension ipratropium 0.5 mg-albuterol 3 mg 3 ml inhalation Q4H PRN wheezing 06/05/23 03/04/24 (2.5 mg base)/3 mL nebulization #90 mL soln meclizine 25 mg tablet 25 mg PO BID PRN dizziness #10 tabs 07/01/23 03/04/24 dicyclomine 10 mg capsule 10 mg PO TID #14 caps 03/04/24 Previous Rx's ?Medication ?Instructions ?Recorded inhalational spacing device #1 ea 05/01/18 (Aerochamber MV spacer) nitroglycerin 0.4 mg sublingual 0.4 mg sublingual PRN #25 tab-caps 05/04/18 tablet amlodipine 5 mg tablet 5 mg PO DAILY #90 tab-caps 07/27/18 clopidogrel 75 mg tablet (Plavix) 75 mg PO DAILY #90 tabs 07/27/18 simvastatin 10 mg tablet 10 mg PO DAILY #90 tab-caps 07/31/18 losartan 100 mg tablet (Cozaar) 100 mg PO DAILY #90 tab-caps 12/27/18 fluticasone propionate 50 1 spray intranasal BID PRN nasal 02/03/19 mcg/actuation nasal congestion #9.9 grams spray,suspension (Flonase Allergy Relief) lorazepam 1 mg tablet 0.5 - 1 mg (0.5 - 1 x 1 mg) PO BID 02/19/19 PRN anxiety #30 tabs albuterol sulfate 90 mcg/actuation 2 puff inhalation Q4H PRN 08/29/19 aerosol inhaler (Ventolin HFA) shortness of breath or wheezing #8.5 grams blood sugar diagnostic (FreeStyle #10 ea 12/06/20 Lite Strips) blood-glucose meter (FreeStyle #1 ea 12/06/20 Lite Meter kit) lactobacillus combination no.9 4 4,000 mmu cells PO DAILY #30 caps 10/13/21 billion cell capsule (Adult 50 Plus Probiotic) pantoprazole 40 mg tablet,delayed 40 mg PO DAILY #30 tabs 11/25/21 release (Protonix) nebulizers (Aeroneb Go Nebulizer) #1 ea 04/03/22 ipratropium 0.5 mg-albuterol 3 mg 3 ml inhalation Q4H PRN wheezing 06/05/23 (2.5 mg base)/3 mL nebulization #90 mL soln meclizine 25 mg tablet 25 mg PO BID PRN dizziness #10 tabs 07/01/23 dicyclomine 10 mg capsule 10 mg PO TID #14 caps 03/04/24 Allergies Allergy/AdvReac Type Severity Reaction Status Date / Time azithromycin AdvReac Mild Nausea Verified 03/04/24 21:03 codeine AdvReac Mild Nausea Verified 03/04/24 21:03 erythromycin base AdvReac Mild Nausea Verified 03/04/24 21:03 ibuprofen AdvReac Mild Nausea Verified 03/04/24 21:03 lisinopril AdvReac Mild cough Verified 03/04/24 21:03 NSAIDS (Non-Steroidal AdvReac Mild Nausea Verified 03/04/24 21:03 Anti-Inflamma General Stated Complaint: Abd Prob MONICA: 3 Exam Narrative Exam Narrative: Alert and oriented 63-year-old female distended abdomen, diffuse mild tenderness. No rebound or guarding. Oropharynx patent, uvula midline. distal pulses intact. Course Hypotension Vital Signs Vital signs: Vital Signs Temperature 36.2 C L 03/04/24 20:58 Pulse 83 03/04/24 20:58 Respiratory Rate 16 03/04/24 20:58 Blood Pressure 161/96 H 03/04/24 20:58 Pulse Oximetry 99 03/04/24 20:58 Temperature 36.2 C L 03/04/24 20:58 Pulse 83 03/04/24 20:58 Respiratory Rate 16 03/04/24 20:58 Respiratory Effort Normal 03/04/24 21:06 Blood Pressure 161/96 H 03/04/24 20:58 Pulse Oximetry 99 03/04/24 20:58 Oxygen Delivery Method Room Air 03/04/24 20:58 Oxygen Flow Rate 0 03/04/24 20:58 Pain Level 10 03/04/24 20:58 Comment pressure feels 03/04/24 20:58 Lab/Test Results Lab/Test Results: Laboratory Tests Range/Units 03/04/24 03/04/24 21:48 22:22 WBC (4.4-10.8) 10^3/uL 9.75 RBC (3.93-5.22) 10^6/uL 4.66 Hgb (11.2-15.7) g/dL 13.7 Hct (36.0-46.0) % 41.1 MCV (80-95) fL 88 MCH (27.0-33.0) pg 29.4 MCHC (32.0-36.0) % 33.3 RDW (11.7-14.6) % 14.2 Plt Count (130-400) 10^3/uL 377 MPV (8.0-11.0) fL 9.5 Immature Gran % % 0.5 Neutrophils % % 58.5 Lymphocytes % % 33.2 Monocytes % % 6.1 Eosinophils % % 1.2 Basophils % % 0.5 Nucleated RBC % (0.0-0.3) % 0.0 Absolute Neutrophils (1.2-6.7) 10^3/uL 5.70 Absolute Lymphocytes (1.2-3.4) 10^3/uL 3.24 Absolute Monocytes (0.1-0.8) 10^3/uL 0.59 Absolute Eosinophils (0.0-0.7) 10^3/uL 0.12 Absolute Basophils (0.0-0.2) 10^3/uL 0.05 Sodium (136-145) mmol/L 139 Potassium (3.5-5.1) mmol/L 3.7 Chloride (98-107) mmol/L 104 Carbon Dioxide (21.0-32.0) mmol/L 27.2 Anion Gap (3-11) mmol/L 7.8 BUN (7-18) mg/dL 10 Creatinine (0.55-1.02) mg/dL 1.0 Est GFR (CKD-EPI 2020) (mL/min/1.73m2) 62.91 Glucose (74-106) mg/dL 162 H Calcium (8.5-10.1) mg/dL 9.2 Total Bilirubin (0.2-1.0) mg/dL 0.34 AST (15-37) U/L 19 ALT (14-59) U/L 33 Alkaline Phosphatase (46-116) U/L 96 Total Protein (6.4-8.2) g/dL 7.7 Albumin (3.4-5.0) g/dL 4.0 Lipase (16-77) U/L 68 Urine Color (Yellow) Yellow Urine Clarity (Clear) Clear Urine pH (5-8) 6.5 Ur Specific [place] (1.005-1.025) 1.010 Urine Protein (Neg-Trace) mg/dL Negative Urine Ketones (Negative) mg/dL Negative Urine Blood (Negative) Negative Urine Nitrite (Negative) Negative Urine Bilirubin (Negative) Negative Urine Urobilinogen (Up to 0.2) mg/dL 0.2 Ur Leukocyte Esterase (Negative) Negative Urine Glucose (Negative) mg/dL Negative Medical Decision Making 63-year-old female in no acute distress CT abdomen pelvis did not show acute pathology per radiology interpretation and my review Diagnostic labs are reassuring Administer Levsin with mild improvement in symptoms Will give prescription for Levsin for home which patient may try in addition to supportive [id number] suggestions which were reviewed with patient Recheck in the outpatient setting return precautions reviewed and patient expressed understanding Quality:SDOH Health Related Social Needs: No Data to Display PFSH All Active Problems (Updated 03/04/24 @ 23:27 by RAEGAN Light) Abdominal bloating (Acute) Degenerative joint disease of right knee (Acute) Mild 40 mg Depo: 03/20/23 Internal derangement of right knee (Acute) Right knee pain (Acute) Liver cirrhosis secondary to nonalcoholic steatohepatitis (BARRERA) (Acute) Chronic diarrhea (Acute) Epigastric pain (Acute) Hyperplastic colon polyp (Acute) ASCVD (arteriosclerotic cardiovascular disease) (Acute) 10/15 anterolat NSTE ID; stent x 4; 10/15 echo-EF 55%; inf.wall hypokinesis; mild Anxiety (Acute) after ID decreased memory/concentration--[facility] neurology COPD (chronic obstructive pulmonary disease) (Acute) continues to smoke Depressive disorder (Acute) fatigue Diabetic peripheral neuropathy associated with type 2 diabetes mellitus (Acute 03/03/16) Essential hypertension (Acute 05/03/13) Urinary, incontinence, stress female (Acute 09/13/13) Heart murmur (Acute 09/13/13) 10/21 echo LVEF 70% with LVH, aoritc valve thickened but opens well (no signif aortic stenosis) [facility] Echo 02/05/19 - LVH (mild-mod), EeF= 60-65%, systolic function normal, ascending aorta mildly dilated Hyperlipidemia (Acute 12/18/12) Morbid obesity (Acute) Numbness and tingling in right hand (Acute 03/03/16) Obstructive sleep apnea syndrome (Acute 03/27/10) [facility] sleep lab Pap smear abnormality of cervix with LGSIL (Acute) LGSIL +HPV; BX darcie I Postmenopausal bleeding (Acute 09/21/11) atypical endometrial hyperplasia Sciatica (Acute 07/04/13) left sciatica, MRI [facility] 07/22/13: L3-4 disc extrusion Skin tags, multiple acquired (Acute 02/15/16) Smoker (Acute) Type II diabetes mellitus, uncontrolled (Acute) Asthma (Chronic) Status post arthroscopy of left knee (Acute) History of section (Acute) Family history of malignant neoplasm of breast (Acute 09/11/14) Fever (Acute) She is febrile and has both abdominal and chest symptoms. We will send to the emergency room. Upper respiratory infection (Acute) Hyperglycemia (Acute) Acute bronchospasm (Acute) Seasonal allergies (Acute) History of COPD (Acute) Fatty liver (Acute) Diverticulosis (Acute) Constipation (Acute) Incontinence (Acute) Pedal edema (Acute) Varicose veins of lower extremity (Acute) Bipolar disorder (Chronic) Compliant with therapeutic regimen (Acute) Carne, oral (Acute) Allergic rhinitis (Acute) Medical History Hx of malignant neoplasm of eye History of renal carcinoma Hypertension COPD (chronic obstructive pulmonary disease) Hyperlipidemia Heart murmur Atherosclerotic cardiovascular disease Depression Anxiety Stress incontinence in female Morbid obesity with BMI of 40.0-44.9, adult Plantar fasciitis of left foot Sleep apnea Surgical History H/O esophagogastroduodenoscopy (~03/10/21) S/P colonoscopy (~03/10/21) Stent placement X 4 TO LCX-1995 section (~1981) Cervical Procedure BX DARCIE I Arthroplasty of knee athroscopy not arthroplasty. Family History Mother Personal history of malignant neoplasm UTERINE CA; HYSTERECTOMY AGE 76 Uterine cancer Hysterectomy at 76 Father Heart disease Brother Diabetes Cancer Brother No problems noted. Brother No problems noted. Social History Smoking/Tobacco Use Status: Current every day Tobacco Type: cigarettes Smoking packs per day: 1 Smoking cigarettes per day: 20.0 Smoking risk assessment performed?: Yes Alcohol Intake: current Alcohol Intake frequency: holidays/special occasions only Drug use: Never Substance use type: does not use Household members: significant other Housing: house Communication Needs: None Do you need help understanding health information?: Rarely Pets and animals: Yes Pets and animals: dog(s) Do you think of yourself as: straight/heterosexual Current gender identity: female What is your relationship status?: living with partner How often do you talk on the phone with friends or family?: three or more times per week How often do you get together with friends or relatives?: decline to answer How often do you attend congregation or anglican services?: decline to answer Do you belong to any clubs or organized social groups?: no Panel score (0-1 are the most socially isolated patients): 2 What type of physical activity do you participate in: none Duration: < 15 minutes/day Frequency: daily Katerina/Christian: none Special katerina needs: No Seatbelt use: sometimes Helmet use: Yes Helmet use: always Drive intox 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
--- NOTE | 2024-03-04 23:25 | DI.VRAD_ITS ---
PROCEDURE INFORMATION: Exam: CT Abdomen And Pelvis With Contrast Exam date and time: 03/04/2024 10:06 PM Age: 63 years old Clinical indication: Prior surgery; Surgery date: 6+ months; Surgery type: Kidney surgery; Patient HX: Abdominal pain, HX of renal cancer, bloating TECHNIQUE: Imaging protocol: Computed tomography of the abdomen and pelvis with contrast. Radiation optimization: All CT scans at this facility use at least one of these dose optimization techniques: automated exposure control; mA and/or kV adjustment per patient size (includes targeted exams where dose is matched to clinical indication); or iterative reconstruction. Contrast material: OMNIPAQUE 350; Contrast volume: 100 ml; Contrast route: INTRAVENOUS (IV); COMPARISON: CT ABDOMEN PELVIS W 06/03/2022 4:26 PM FINDINGS: Liver: There is diffuse decrease in hepatic parenchymal density, consistent with mild fatty infiltration. No mass. Gallbladder and biliary ducts: Normal. No calcified stones. No ductal dilation. Pancreas: Normal. No ductal dilation. Spleen: Normal. No splenomegaly. Adrenal glands: Normal. No mass. Kidneys and ureters: Kidneys are unchanged in appearance. Possible surgical defect in inferomedial left renal cortex, 04/08-, correlate with surgical history. Minute radiopaque calculus in left kidney. No hydronephrosis. Stomach and bowel: Unremarkable. No obstruction. No mucosal thickening. There are a few, scattered colonic diverticula. Appendix: Normal appendix. Intraperitoneal space: Unremarkable. No free air. No significant fluid collection. Vasculature: Unremarkable. No abdominal aortic aneurysm. Lymph nodes: Unremarkable. No enlarged lymph nodes. Urinary bladder: Unremarkable as visualized. Reproductive: Unremarkable as visualized. Bones/joints: The spine demonstrates mild degenerative changes at multiple levels. No acute fracture. Soft tissues: Unremarkable. IMPRESSION: 1. No acute findings. 2. Several nonemergent findings. Dictated and Authenticated by: Dewey Palmer MD. Ordering:GABINO Lilly MD
[2024-03-05] MEDS: Dicyclomine 10 MG CAP PO (00:25)
== END 2024-03-05 00:24 | disposition home or self-care (01) ==
PROVIDERS: Emergency Provider Physician Assistant; PCP Family Medicine
DX: R14.0 Abdominal distension (gaseous) (principal); N20.0 Calculus of kidney; I10 Essential (primary) hypertension; E78.5 Hyperlipidemia, unspecified; J44.9 Chronic obstructive pulmonary disease, unspecified; E11.40 Type 2 diabetes mellitus with diabetic neuropathy, unspecified; Z90.5 Acquired absence of kidney; Z79.84 Long term (current) use of oral hypoglycemic drugs; Z79.82 Long term (current) use of aspirin; Z79.02 Long term (current) use of antithrombotics/antiplatelets; Z79.4 Long term (current) use of insulin; Z85.528 Personal history of other malignant neoplasm of kidney; F17.210 Nicotine dependence, cigarettes, uncomplicated
CPT/HCPCS: 36415; 80053; 83690; 93005; 99285; 74177; 81003; 85025; 93010; 99284; J3490

== ENCOUNTER 2024-04-13 12:22 | Outpatient (CLI) | payer MEDICARE, MEDICAID, SELFPAY ==
--- NOTE | 2024-04-13 12:15 | RT.EKG_ITS ---
APPROVED REPORT Exam: Resting ECG Reason for Exam: Pain LLQ Patient Location: O HR:80 bpm ECG Measurements Heart Rate 80 AXIS AR 192 P 29 QRSd 95 QRS 13 QT 370 T 45 QTc 427 Conclusion Sinus tachycardia...rate> 99 Multiple ventricular premature complexes...V complexes w/ short R-R intervls Probable left ventricular hypertrophy...multiple LVH criteria
== END 2024-04-13 12:23 | disposition home or self-care (01) ==
LOC: DI.CM 12:23
PROVIDERS: PCP Family Medicine; Visit Provider Physician Assistant
DX: R00.1 Bradycardia, unspecified (principal)
CPT/HCPCS: 93010

== ENCOUNTER 2024-04-13 15:37 | Outpatient (REF) | payer MEDICARE, MEDICAID, SELFPAY ==
--- OUTSIDE RECORDS SUMMARY | 2024-04-13 15:39 | XMS_ITS | Encounter Summary ---
Author Organization [facility] Address [address] [place] [address] Care Team Providers Care Hair Salon Manager Name Role Phone Brenda Canchola MD Primary Care Provider [phone] Encounter Details Date Type Department Care Team (Late st Contact Info) Description 10/14/2021 Lab Requisition [facility] Pathology & Laboratory Medicine - [facility] [address], [place] [id number] Outr Resulting Lab, Provider Social History Tobacco [...] Outr Resulting Lab MICROBIOLOGY - GENERAL ORDERABLES [facility] [address] [place] [address] * COVID-19 TESTING (10/13/2021 18:40 EDT) COVID-19 rt-PCR Result Negative Negative 10/15/2021 11:43 EDT [facility] Comment: This test has not [...] performed using the flaquito SARS-CoV-2 assay ([employer] on the Flaquito 6800 System Performing Lab Flaquito [address] [facility] Lab 10/15/2021 11:43 EDT [facility] Swab 10/13/2021 18:4 0 EDT 10/14/2021 17:01 EDT Provider Outr Resulting Lab MICROBIOLOGY - GENERAL ORDERABLES [facility] [address] [place] [address] documented in this encounter Visit Diagnoses Not on filedocumented in this encounter Care Teams Hair Salon Manager Relationship Specialty Start Date End Date Brenda Canchola MD [address] [place] [address] [address] [place], [place] [id number] PCP - General 08/03/10 documented as of this encounter
--- OUTSIDE RECORDS SUMMARY | 2024-04-13 15:39 | XMS_ITS | Encounter Summary ---
Author Organization [facility] Address [address] [place] [address] Care Team Providers Care Automated Equipment Engineer Technician Name Role Phone Brenda Canchola MD Primary Care Provider [phone] Encounter Details Date Type Department Care Team (Late st Contact Info) Description 02/05/2023 Lab Requisition [facility] Pathology & Laboratory Medicine - [facility] [address], [place] [id number] Outr Resulting Lab, Provider Social History Tobacco [...] Lyme Ab Negative Negative 02/06/2023 10:47 EDT [facility] Blood VENOUS BLOOD / Unknown 02/04/2023 21:15 EDT 02/05/2023 15:40 EDT Provider Outr Resulting Lab IMMUNOLOGY A ND SEROLOGY ORDERABLES [facility] [address] [place] [address] documented in this encounter Visit Diagnoses Not on filedocumented in this encounter Care Teams Automated Equipment Engineer Technician Relationship Specialty Start Date End Date Brenda Canchola MD [address] [place] [address] [place] [address] PCP - General 08/03/10 documented as of this encounter
--- OUTSIDE RECORDS SUMMARY | 2024-04-13 15:39 | XMS_ITS | Encounter Summary ---
Author Organization [facility] Address [address] [place] [address] Care Team Providers Care Scientist Name Role Phone Brenda Canchola MD Primary Care Provider [phone] Encounter Details Date Type Department Care Team (Late st Contact Info) Description 09/10/2010 Results Only [facility] Laboratory Services - [facility] [address] [place], [place] [id number] Brenda Canchola MD [facility] [facility] [place] [address] Social History Tobacco Use Types [...] ? ALIZE MANJARREZ ? Accession #: ? [id number] ? : ? 1960 (Age: 49) ??F [...] Canchola MD PATHOLOGY ORDERABLES Performing Organization Address City/State/[facility] Co de Phone Number [facility] [address] [place] [address] documented in this encounter Visit Diagnoses Not on filedocumented in this encounter Care Teams Scientist Relationship Specialty Start Date End Date Brenda Canchola MD [address] [place] [address] [place] [address] PCP - General 08/03/10 documented as of this encounter
--- OUTSIDE RECORDS SUMMARY | 2024-04-13 15:39 | XMS_ITS | Encounter Summary ---
Author Organization [facility] Address [address] [place] [address] Care Team Providers Care Cable Installer Name Role Phone Brenda Canchola MD Primary Care Provider [phone] Encounter Details Date Type Department Care Team (Late st Contact Info) Description 08/17/2020 Lab Requisition [facility] Pathology & Laboratory Medicine - [facility] [address], [place] [id number] Outr Resulting Lab, Provider Social History Tobacco [...] Outr Resulting Lab MICROBIOLOGY - GENERAL ORDERABLES [facility] [address] [place] [address] * COVID-19 TESTING (08/17/2020 12:25 EST) COVID-19 rt-PCR Result Negative Negative 08/18/2020 15:45 EST [facility] Comment:Negative results do not preclude 2019-nCoV infection and should not be used as the sole basis for treatment or other patient management decisions. Negative results must be combined with clinical observations, patient history, and epidemiological information. Performing Lab [facility] 08/18/2020 15:45 EST [facility] Swab 08/17/2020 12:2 5 EST 08/17/2020 15:56 EST Provider Outr Resulting Lab MICROBIOLOGY - GENERAL ORDERABLES [facility] [address] [place] [address] documented in this encounter Visit Diagnoses Not on filedocumented in this encounter Care Teams Cable Installer Relationship Specialty Start Date End Date Brenda Canchola MD [address] [place] [address] [place] [address] PCP - General 08/03/10 documented as of this encounter
--- OUTSIDE RECORDS SUMMARY | 2024-04-13 15:39 | XMS_ITS | Encounter Summary ---
Author Organization [facility] Address [address] [place] [address] Care Team Providers Care Operations Support Specialist Name Role Phone Brenda Canchola MD Primary Care Provider [phone] Encounter Details Date Type Department Care Team (Late st Contact Info) Description 01/02/2018 Results Only [facility]- [facility] [phone] Nadir Hernandez, CASTING AGENT [address] [place] [address] Social History Tobacco Use Types Packs/Day Years [...] ? ALIZE MANJARREZ ? Accession #: ? [id number] ? : ? 1960 (Age: 57) ??F ?Collect Date: ? 01/02/2018 ? Location: ? [facility] ? Receive Date: ? 01/04/2018 ? Provider: NADIR HERNANDEZ HULL GRINDER-BC Copy to: ? Final Report SPECIMEN ADEQUACY [...] types 16,18,31,33,35, 39,45,51,52,56,58, 59,66, and 68 by oyster farmer mediated amplification. Comments Document reviewed and electronically signed by: ? System Interface ? Report date: 01/23/2018 By the signature above, the attending physician certifies that he/she has personally conducted a gross and/or microscopic examination of the described specimens and rendered or confirmed the above diagnosis. End of Report [facility] 01/02/2018 01/04/2018 Nadir Hernandez NP PATHOLOGY ORDERABLES [facility] [address] [place] [address] documented in this encounter Visit Diagnoses Not on filedocumented in this encounter Care Teams Operations Support Specialist Relationship Specialty Start Date End Date Brenda Canchola MD [address] [place] [address] [place] [address] PCP - General 08/03/10 documented as of this encounter
--- OUTSIDE RECORDS SUMMARY | 2024-04-13 15:39 | XMS_ITS | Encounter Summary ---
Author Organization [facility] Address [address] [place] [address] Care Team Providers Care Principal Database Developer Name Role Phone Brenda Rneee MD Primary Care Provider [phone] Encounter Details Date Type Department Care Team (Late st Contact Info) Description 12/18/2012 Results Only [facility] Laboratory Services - [facility] ([facility] [address] [place], [place] [phone] Brenda Renee MD [facility] [place] [address] Social History Tobacco Use Types [...] ? ALIZE MANJARREZ ? Accession #: ? [id number] ? : ? 1960 (Age: 52) ??F [...] and electronically signed by: ? Brenda Chang, [facility](ASCP) ? Report ??Date: 12/26/2012 13:52 HPV with Pap Test ? Date Ordered: ? 12/25/2012 ? Status: ?? Signed Out ?Date Complete: ? 12/28/2012 ? By: ??System Interface ? Date Reported: ? 12/28/2012 ? Interpretation RESULT: Negative for HPV. No E6 or E7 mRNA is detected from HPV types 16,18,31,33,35, 39,45,51,52,56,58, 59,66, and 68 by attendant honor bar mediated amplification. Comments Document reviewed and electronically signed by: ? System Interface ? Report date: 12/28/2012 By the signature above, the attending physician certifies that he/she has personally conducted a gross and/or microscopic examination of the described specimens and rendered or confirmed the above diagnosis. End of Report [facility] 12/18/2012 12/19/2012 Brenda Renee MD PATHOLOGY ORDERABLES [facility] [address] [place] [address] documented in this encounter Visit Diagnoses Not on filedocumented in this encounter Care Teams Principal Database Developer Relationship Specialty Start Date End Date Brenda Renee MD [address] [place] [address] [place] [address] PCP - General 08/03/10 documented as of this encounter
--- OUTSIDE RECORDS SUMMARY | 2024-04-13 15:39 | XMS_ITS | Encounter Summary ---
Author Organization [facility] Address [address] [place] [address] Care Team Providers Care Tentmaker Name Role Phone Brenda Renee MD Primary Care Provider [phone] Encounter Details Date Type Department Care Team (Late st Contact Info) Description 11/02/2011 Results Only [facility] Laboratory Services - [facility] ([facility]) [address] [place], [place] [phone] Liss Griffiths MD [address] [place] [address] [place] [address] Social History Tobacco Use Types Packs/Day Years [...] ? ALIZE MANJARREZ ? Accession #: ? [id number] ? : ? 1960 (Age: 50) ??F [...] endocervical tissue. Comment: ? The prior biopsy ([id number]) was examined. ??(Susannah Hughes)/[facility] Document reviewed and electronically signed [...] MD PATHOLOGY ORDERABLES [facility] [address] [place] [address] documented in this encounter Visit Diagnoses Not on filedocumented in this encounter Care Teams Tentmaker Relationship Specialty Start Date End Date Brenda Renee MD [address] [place] [address] [place] [address] PCP - General 08/03/10 documented as of this encounter
--- OUTSIDE RECORDS SUMMARY | 2024-04-13 15:39 | XMS_ITS | Encounter Summary ---
Author Organization [facility] Address [address] [place] [address] Care Team Providers Care Manifest/Order Organizer Print Orders Name Role Phone Brenda Canchola MD Primary Care Provider Encounter Details Date Type Department Care Team (Late st Contact Info) Description 10/04/2021 Lab Requisition [facility] Pathology & Laboratory Medicine - [facility] [address] [place], [place] [id number] Outr Resulting Lab, Provider Social History Tobacco [...] Outr Resulting Lab MICROBIOLOGY - GENERAL ORDERABLES [facility] [address] [place] [address] * COVID-19 TESTING (10/03/2021 17:23 EDT) COVID-19 rt-PCR Result Negative Negative 10/05/2021 13:50 EDT [facility] Comment: This test has not [...] performed using the flaquito SARS-CoV-2 assay ([employer] on the Flaquiot 6800 System Performing Lab Flaquito [address] [facility] 10/05/2021 13:50 EDT [facility] Swab 10/03/2021 17:2 3 EDT 10/04/2021 21:43 EDT Provider Outr Resulting Lab MICROBIOLOGY - GENERAL ORDERABLES [facility] [address] [place] [address] documented in this encounter Visit Diagnoses Not on filedocumented in this encounter Care Teams Manifest/Order Organizer Print Orders Relationship Specialty Start Date End Date Brenda Canchola MD [address] [place] [address] [address] [place], [place] [address] PCP - General 08/03/10 documented as of this encounter
--- OUTSIDE RECORDS SUMMARY | 2024-04-13 15:39 | XMS_ITS | Encounter Summary ---
Author Organization [facility] Address [address] [place] [address] Care Team Providers Care Platinumsmith Name Role Phone Brenda Renee MD Primary Care Provider [phone] Encounter Details Date Type Department Care Team (Late st Contact Info) Description 01/24/2014 Results Only [facility] Laboratory Services - [facility] ([facility]) [address] [place], [place] [id number] Brenda Renee MD [facility] [place] [address] Social History Tobacco Use Types [...] ? ALIZE MANJARREZ ? Accession #: ? [id number] ? : ? 1960 (Age: 53) ??F [...] types 16,18,31,33,35, 39,45,51,52,56,58, 59,66, and 68 by job coaching mediated amplification. Comments Document reviewed and electronically signed by: ? System Interface ? Report date: 02/04/2014 By the signature above, the attending physician certifies that he/she has personally conducted a gross and/or microscopic examination of the described specimens and rendered or confirmed the above diagnosis. End of Report [facility] 01/24/2014 01/28/2014 Brenda Renee MD PATHOLOGY ORDERABLES [facility] [address] [place] [address] documented in this encounter Visit Diagnoses Not on filedocumented in this encounter Care Teams Platinumsmith Relationship Specialty Start Date End Date Brenda Renee MD [address] [place] [address] [place] [address] PCP - General 08/03/10 documented as of this encounter
--- OUTSIDE RECORDS SUMMARY | 2024-04-13 15:39 | XMS_ITS | Encounter Summary ---
Author Organization [facility] Address [address] [place] [address] Care Team Providers Care Electric Motor Repairman Name Role Phone Brenda Canchola MD Primary Care Provider [phone] Encounter Details Date Type Department Care Team (Late st Contact Info) Description 02/04/2019 Historical Results Only [facility] Radiology Results [address] [place], [place] [id number] Kristin Rocha MD [address] [place] [address] Social History Tobacco Use Types [...] 02/04/2019 2 2:36 EDT ETHYL ALCOHOL - [facility] Routine 02/04/2019 20:27 [...] CC: ? Transcribed Date/Time: 02/04/2019 (2243) ? Email Designer: ? Printed Date/Time: 03/27/2019 (1817) ? PAGE 1 ? Signed Report ? Procedure Note Doris Posadas MD - 05/14/2019 EXAM: RADIOLOGY/CHEST PA LAT EX. D/ (2168) CLINICAL INFORMATION: weakness, recent pneumonia EXAM: XR [...] Posadas MD CC: Transcribed Date/Time: 02/04/2019 (2243) Email Designer: Printed Date/Time: 03/27/2019 (1656) PAGE 1 Signed Report Kristin Rocha MD [...] CC: ? Transcribed Date/Time: 02/04/2019 (223) ? Email Designer: ? Printed Date/Time: 03/27/2019 (1818) ? PAGE [...] Posadas MD CC: Transcribed Date/Time: 02/04/2019 (223) Email Designer: [email or web address] Printed Date/Time: 03/27/2019 (4995) PAGE 1 Signed Report Kristin Rocha MD IMG CT ORDERAB LES * MAGNESIUM (02/04/2019 20:27 EDT) Magnesium 2.20 1.7 - 2.8 mg/dL 02/04/2019 21:08 EDT [facility] 02/04/2019 20:2 7 EDT 02/04/2019 20:29 EDT [facility] - 02/04/2019 21:25 EDT AOT: 02/04/19 2105: BNP Kristin Rocha MD CHEMISTRY & BL OOD GAS ORDERABLES [facility] * ETHYL ALCOHOL - [facility] (02/04/2019 20:27 EDT) Pathologist [facility] ETHYL ALCOHOL - [facility] <10.0 <10 mg/dL 02/04/2019 21:08 EDT [facility] 02/04/2019 20:2 7 EDT 02/04/2019 20:29 EDT [facility] - 02/04/2019 21:25 EDT AOT: 02/04/19 2105: BNP Kristin Rocha MD CHEMISTRY & BL OOD GAS ORDERABLES [facility] * (ABNORMAL) COMPREHENSIVE METABOLIC PANEL (CMP) (02/04/2019 20:27 EDT) Albumin % 3.3(L) 3.4 - 4.9 g/dL [facility]2019 [facility] ALKALINE PHOSPHATASE - [facility] 58 38 - 126 U/L 02/04/2019 21:08 [facility] BILIRUBIN TOTAL 0.6 0.2 - 1.3 mg/dL 02/04/2019 21:08 [facility] BUN - [facility] 17 10 - 26 mg/dL 02/04/2019 21:08 [facility] CALCIUM - [facility] 8.8 8.5 - 10.5 mg/dL 02/04/2019 21:08 [facility] Chloride 93(L) 96 - 110 mmol/L 02/04/2019 21:08 [facility] CO2 Total 27 22 - 32 mEq/L 02/04/2019 21:08 [facility] CREATININE 0.77 0.52 - 1.04 mg/dL 02/04/2019 21:08 [facility] eGFR >60 02/04/2019 21:08 [facility] Comment: Chronic renal impairment is defined as GFR <60 Multiply result by 1.210 for patients. eGFR calculated using the IDMS-traceable MDRD Study Equation. ??(effective 05/12/2014) Anion Gap 9 0 - 18 02/04/2019 21:08 [facility] GLUCOSE - [facility] 262(H) 70 - 100 mg/dL 02/04/2019 21:08 [facility] Potassium 3.7 3.5 - 5.0 mEq/L 02/04/2019 21:08 [facility] Sodium 129(L) 136 - 145 mEq/L 02/04/2019 21:08 [facility] TOTAL PROTEIN - [facility] 5.8(L) 6.2 - 8.2 gm/dL 02/04/2019 21:08 [facility] SGOT/AST - [facility] 124(H) 14 - 36 U/L 02/04/2019 21:08 [facility] SGPT/ALT - [facility] 133(H) 9 - 52 U/L 9 21:08 [facility] 02/04/2019 20:2 7 EDT 02/04/2019 20:29 [facility] - 02/04/2019 21:25 EDT AOT: 02/04/19 2105: BNP Kristin Rocha MD CHEMISTRY & BL OOD GAS ORDERABLES [facility] * NT PRO BNP (02/04/2019 20:27 EDT) NT-pro BNP 190 <300 pg/mL 02/04/2019 21:25 EDT [facility] Comment: NT-proBNP values less than [...] 20:2 7 EDT 02/04/2019 20:29 EDT Narrative [facility] - 02/04/2019 21:25 EDT AOT: 02/04/19 2105: BNP Kristin Rocha MD CHEMISTRY & BL OOD GAS ORDERABLES Performing Organization Address City/[facility]/ZIP Co de Phone Number [facility] * THYROID CASCADE (02/04/2019 20:27 EDT) Pathologist [facility] TSH 4.05 0.46 - 4.68 uIU/mL 02/04/2019 21:38 EDT [facility] 02/04/2019 20:2 7 EDT 02/04/2019 20:30 EDT Kristin Rocha MD CHEMISTRY & BL OOD GAS ORDERABLES [facility] * (ABNORMAL) TROPONIN I (02/04/2019 20:27 EDT) Pathologist [facility] Troponin I (ng/mL) 0.037(HH) 0.000 - 0.034 ng/mL 02/04/2019 21:01 EDT [facility] Comment: Result called to CATHY [...] BL OOD GAS ORDERABLES Performing Organization Address [facility]/ZIP Co de Phone Number [facility] * D-DIMER (02/04/2019 20:27 EDT) Pathologist [facility] D-Dimer 193 <230 ng/mLDDU 02/04/2019 21:20 EDT [facility] Comment: CUTOFF VALUE FOR THE EXCLUSION OF DVT and PE: 230 ng/mL D-dimer units. Any use of the age-adjusted cutoff value is a post-analytic modification of this FDA-approved test and is considered off-label use of the test result. [facility] Laboratory does not have literature to support the validity of an age-adjusted cutoff for our specific assay. 02/04/2019 20:2 7 EDT 02/04/2019 21:06 EDT Kristin Rocha MD HEMATOLOGY & P F4 ORDERABLES Performing Organization Address [facility]/ZIP Co de Phone Number [facility] * (ABNORMAL) COMPLETE BLOOD COUNT WITH DIFFERENTIAL (AUTO) (02/04/2019 20:27 EDT) Pathologist [facility] ABSOLUTE NEUTROPHIL COUN - [facility] 9.6(H) 2.2 - 8.85 10e3/uL 02/04/2019 20:35 EDT [facility] BASO # - [facility] 0.01 0.01 - 0.11 10e/uL 02/04/2019 20:35 EDT [facility] BASO % - [facility] 0 0 - 2 % 02/04/2019 20:35 [facility] EOS # - [facility] 0.09 0.03 - 0.61 10e3/ul 02/04/2019 20:35 [facility] EOS % - [facility] 1 0 - 5 % 02/04/2019 20:35 [facility] GRAN % - [facility] 68.5 40 - 80 % 02/04/2019 20:35 [facility] HEMATOCRIT - [facility] 37.5 34.9 - 44.4 % 02/04/2019 20:35 [facility] HEMOGLOBIN - [facility] 12.8 11.6 - 15.2 g/dl 02/04/2019 20:35 [facility] IG# - [facility] 0.16 0 - 0.7 10e3/uL 02/04/2019 20:35 [facility] IG% - [facility] 1.1(H) 0 - 0.9 % 02/04/2019 20:35 [facility] LYMPH # - [facility] 3.1 1.09 - 3.3 10e3/ul 02/04/2019 20:35 [facility] LYMPH% - [facility] 22.5 20 - 40 % 02/04/2019 20:35 [facility] MEAN CORPUSCULAR HGB - [facility] 29.6 26.7 - 33.3 pg 02/04/2019 20:35 [facility] MEAN CORPUSCULAR HGB CONC - [facility] 34.1 32.1 - 35.9 g/dL 02/04/2019 20:35 [facility] MEAN CELL VOLUME - [facility] 86.6 81 - 98 fl 02/04/2019 20:35 [facility] MONO # - [facility] 1.0(H) 0.1 - 0.8 10e3/uL 02/04/2019 20:35 [facility] MONO% - [facility] 7.2 0 - 12 % 02/04/2019 20:35 [facility] PLATELET COUNT 345 141 - 377 10e3/ul 02/04/2019 20:35 [facility] RED BLOOD COUNT - [facility] 4.33 3.86 - 5.04 10e3/ul 02/04/2019 20:35 EDT [facility] RED CELL DISTRI WIDTH - [facility] 14.1 <14.7 % 02/04/2019 20:35 EDT [facility] WHITE BLOOD COUNT - [facility] 14.0(H) 4.0 - 12.4 10e3/ul 02/04/2019 20:35 EDT [facility] 02/04/2019 20:2 7 EDT 02/04/2019 20:30 EDT Kristin Rocha MD HEMATOLOGY & P F4 ORDERABLES [facility] * (ABNORMAL) POCT GLUCOSE (02/04/2019 19:45 EDT) [facility] Glucose, POC 262(H) 70 - 100 mg/dL 02/04/2019 19:51 EDT [facility] 02/04/2019 19:4 5 EDT 02/04/2019 19:51 EDT Mack Varghese MD POINT OF CARE TEST O RDERABLES [facility] documented in this encounter Visit Diagnoses Not on filedocumented in this encounter Care Teams Electric Motor Repairman Relationship Specialty Start Date End Date Brenda Canchola MD [address] [place] [address] [place] [address] PCP - General 08/03/10 documented as of this encounter
--- OUTSIDE RECORDS SUMMARY | 2024-04-13 15:39 | XMS_ITS | Encounter Summary ---
Author Organization [facility] Address [address] [place] [address] Care Team Providers Care Fisher Trap Name Role Phone Brenda Canchola MD Primary Care Provider [phone] Encounter Details Date Type Department Care Team (Late st Contact Info) Description 02/06/2019 Historical Results Only [facility] - [facility] - Main [address] [address] Nathan Michael MD [address] [place] [id number] Social History Tobacco Use Types Packs/Day [...] 70 - 100 mg/dL 02/06/2019 12:09 EDT [facility] 02/06/2019 12:0 7 EDT 02/06/2019 12:09 EDT Nathan Michael MD POINT OF CARE TEST O RDERABLES Performing Organization Address [facility]/ZIP Co de Phone Number [facility] * (ABNORMAL) POCT GLUCOSE (02/06/2019 7:50 EDT) Glucose, POC 137(H) 70 - 100 mg/dL 02/06/2019 7:52 EDT [facility] 02/06/2019 7:50 EDT 02/06/2019 7:52 EDT Nathan Michael MD POINT OF CARE TEST O RDERABLES Performing Organization Address [facility]/ZIP Co de Phone Number [facility] * (ABNORMAL) ALT (02/06/2019 6:45 EDT) [facility] SGPT/ALT - [facility] 121(H) 9 - 52 U/L 02/06/2019 8:10 EDT [facility] 02/06/2019 6:45 EDT 02/06/2019 6:49 EDT Narrative [facility] - 02/06/2019 8:10 EDT AOT: 02/06/19 0743: AST/ALT Ruby Frederick MD CHEMISTRY & BLOOD GA S ORDERABLES Performing Organization Address [facility]/ZIP Co de Phone Number [facility] * (ABNORMAL) AST (02/06/2019 6:45 EDT) SGOT/AST - [facility] 63(H) 14 - 36 U/L 02/06/2019 8:10 EDT [facility] 02/06/2019 6:45 EDT 02/06/2019 6:49 EDT [facility] - 02/06/2019 8:10 EDT AOT: 02/06/19 0743: AST/ALT Ruby Frederick MD CHEMISTRY & BLOOD GA S ORDERABLES [facility] * MAGNESIUM (02/06/2019 6:45 EDT) Pathologist [facility] Magnesium 2.20 1.7 - 2.8 mg/dL [facility]/06[facility] 6:45 EDT 02/06/2019 6:49 EDT [facility] - 02/06/2019 8:10 EDT AOT: 02/06/19 0743: AST/ALT Ruby Frederick MD CHEMISTRY & BLOOD GA S ORDERABLES [facility] * (ABNORMAL) BASIC METABOLIC PANEL (BMP) (02/06/2019 6:45 EDT) Pathologist [facility] 14 10 - 26 mg/dL 02/06/2019 7:24 [facility] CALCIUM [facility] 9.5 8.5 - 10.5 mg/dL 02/06/2019 7:24 [facility] Chloride 98 96 - 110 mmol/L 02/06/2019 7:24 [facility] CO2 Total 28 22 - 32 mEq/L 02/06/2019 7:24 [facility] CREATININE 0.68 0.52 - 1.04 mg/dL 02/06/2019 7:24 [facility] eGFR >60 02/06/2019 7:24 [facility] Comment: Chronic renal impairment is defined as GFR <60 Multiply result by 1.210 for patients. eGFR calculated using the IDMS-traceable MDRD Study Equation. ??(effective 05/12/2014) Anion Gap 7 0 - 18 02/06/2019 7:24 T [facility] GLUCOSE - [facility] 137(H) 70 - 100 mg/dL 02/06/2019 7:24 [facility] Potassium 4.3 3.5 - 5.0 mEq/L 02/06/2019 7:24 [facility] Sodium 133(L) 136 - 145 mEq/L 02/06/2019 7:24 [facility] 02/06/2019 6:45 EDT 02/06/2019 6:49 EDT [facility] - 02/06/2019 8:10 EDT AOT: 02/06/19 0743: AST/ALT Ruby Frederick MD CHEMISTRY & BLOOD GA S ORDERABLES [facility] * (ABNORMAL) COMPLETE BLOOD COUNT WITH DIFFERENTIAL (AUTO) (02/06/2019 6:45 EDT) ABSOLUTE NEUTROPHIL COUN - [facility] 7.7 2.2 - 8.85 10e3/uL 02/06/2019 7:14 [facility] BASO # - CV 0.02 0.01 - 0.11 10e/uL 02/06/2019 7:14 [facility] BASO % - MC 0 0 - 2 % 02/06/2019 7:14 [facility] EOS # - [facility] 0.10 0.03 - 0.61 10e3/ul 02/06/2019 7:14 [facility] EOS % - [facility] 1 0 - 5 % 02/06/2019 7:14 [facility] GRAN % - [facility] 71.6 40 - 80 % 02/06/2019 7:14 [facility] HEMATOCRIT - [facility] 40.4 34.9 - 44.4 % 02/06/2019 7:14 [facility] HEMOGLOBIN - [facility] 13.4 11.6 - 15.2 g/dl 02/06/2019 7:14 [facility] IG# - [facility] 0.06 0 - 0.7 10e3/uL 02/06/2019 7:14 [facility] IG% - [facility] 0.6 0 - 0.9 % 02/06/2019 7:14 [facility] LYMPH # - [facility] 2.0 1.09 - 3.3 10e3/ul 02/06/2019 7:14 [facility] LYMPH% - [facility] 18.3(L) 20 - 40 % 02/06/2019 7:14 [facility] MEAN CORPUSCULAR HGB - [facility] 29.1 26.7 - 33.3 pg 02/06/2019 7:14 [facility] MEAN CORPUSCULAR HGB CONC - [facility] 33.2 32.1 - 35.9 g/dL 02/06/2019 7:14 [facility] MEAN CELL VOLUME - [facility] 87.6 81 - 98 fl 02/06/2019 7:14 [facility] MONO # - [facility] 0.9(H) 0.1 - 0.8 10e3/uL 02/06/2019 7:14 [facility] MONO% - [facility] 8.4 0 - 12 % 02/06/2019 7:14 [facility] PLATELET COUNT 346 141 - 377 10e3/ul 02/06/2019 7:14 [facility] RED BLOOD COUNT - [facility] 4.61 3.86 - 5.04 10e3/ul 02/06/2019 7:14 [facility] RED CELL DISTRI WIDTH - [facility] 14.7 <14.7 % 02/06/2019 7:14 [facility] WHITE BLOOD COUNT - [facility] 10.8 4.0 - 12.4 10e3/ul 02/06/2019 7:14 [facility] 02/06/2019 6:45 EDT 02/06/2019 6:50 EDT Ruby Frederick MD HEMATOLOGY & PF4 ORD [facility] documented in this encounter Visit Diagnoses Not on filedocumented in this encounter Care Teams Fisher Trap Relationship Specialty Start Date End Date Brenda Canchola MD [address] [place] [address] [place] [address] PCP - General 08/03/10 documented as of this encounter
--- OUTSIDE RECORDS SUMMARY | 2024-04-13 15:39 | XMS_ITS | Clinical Summary ---
Author Organization [facility] Address [address] [place] [address] Care Team Providers Care Nurse Rn Bsn Name Role Phone Brenda Canchola MD Primary Care Provider [phone] Allergies Active Allergy Reactions Criticality Noted Date [...] History Medical History Date Comments Heart attack ([facility]) 2009 cath with 4 stents Diabetes mellitus ([facility]) bor derline Asthma Hypertension Depression Anxiety Family [...] 6:45 EDT) HEPATITIS C AB W/REFLEX - [facility] Negative 02/05/2019 8:14 EDT [facility] Comment:Expected Values: Neg ative. 02/05/2019 6:45 EDT 02/05/2019 6:52 EDT Nathan Michael MD CHEMISTRY & BLOOD GA S ORDERABLES [facility] from Last 3 Months or Most Recently Relevant to Health Maintenance Care Teams Nurse Rn Bsn Relationship Specialty Start Date End Date Brenda Canchola MD [address] [place] [address] [place] [address] PCP - General 08/03/10
--- OUTSIDE RECORDS SUMMARY | 2024-04-13 15:39 | XMS_ITS | Encounter Summary ---
Author Organization [facility] Address [address] [place] [address] Care Team Providers Care Cost And Sales Record Supervisor Name Role Phone Brenda Canchola MD Primary Care Provider [phone] Encounter Details Date Type Department Care Team (Late st Contact Info) Description 08/17/2020 Lab Requisition [facility] Pathology & Laboratory Medicine - [address] [id number] Outr Resulting Lab, Provider Social History Tobacco [...] Result (FLARES) Negative Negative 08/17/2020 23:57 EST [facility] FLU B RNA Result (FLBRES) Negative Negative 08/17/2020 23:57 EST [facility] RSV RNA Result (RSVRES) Negative Negative 08/17/2020 23:57 EST [facility] Performing Lab [facility] 08/17/2020 23:57 EST [facility] Swab ENTIRE NASOPHARYNX / Unknown 08/17/2020 12:27 EST 08/17/2020 17:13 EST Provider Outr Resulting Lab MICROBIOLOGY - GENERAL ORDERABLES Performing Organization Address City/State/[facility] Co de Phone Number [facility] [address] [place] [address] documented in this encounter Visit Diagnoses Not on filedocumented in this encounter Care Teams Cost And Sales Record Supervisor Relationship Specialty Start Date End Date Brenda Canchola MD [address] [place] [address] [place] [address] PCP - General 08/03/10 documented as of this encounter
--- OUTSIDE RECORDS SUMMARY | 2024-04-13 15:39 | XMS_ITS | Encounter Summary ---
Author Organization [facility] Address [address] [place] [address] Care Team Providers Care Employment Officer Name Role Phone Brenda Canchola MD Primary Care Provider [phone] Encounter Details Date Type Department Care Team (Late st Contact Info) Description 03/10/2021 Lab Requisition [facility] Pathology & Laboratory Medicine - [facility] [address] [place] [address] Torito Coon MD [address] [place] [address] [place] [address] Encounter for other general examination [...] explore management options, if applicable. 03/17/2021 12:34 [facility] Final Diagnosis A. STOMACH, ANTRUM, BIOPSY: - No significant pathologic abnormality B. GASTROESOPHAGEAL JUNCTION, BIOPSY: - No significant pathologic abnormality C. COLON, ASCENDING, BIOPSY: - Tubular adenoma D. COLON, DESCENDING, BIOPSY: - No significant pathologic abnormality E. COLON, SIGMOID COLON BIOPSY: - Mildly hyperplastic benign colonic mucosa 03/17/2021 12:34 [facility] Attestation By the signature below, the attending physician certifies that they have 1) personally conducted a gross and/or microscopic examination of the described specimen(s), and/or personally interpreted the results of laboratory testing of the described specimen(s), and 2) personally rendered or confirmed the above diagnosis. 03/17/2021 12:34 [facility] at 1234 Clinical History Constipation, bloating 03/17/2021 12:34 [facility] Gross Description A. Received [...] 0.1 cm). Submitted entirely in E1. RAEGAN ACOSTA(ASCP) 03/10/2021 15:50 03/17/2021 12:34 EDT [facility] Performing Lab [facility] 12:34 EDT [facility] Scanned Images 03/17/2021 12:34 EDT [facility] Tissue ENTIRE SIGMOID COLON [...] EDT Torito Coon MD PATHOLOGY ORDERA BLES [facility] [address] [place] [address] documented in this encounter Visit Diagnoses Diagnosis Encounter for other general examination documented in this encounter Care Teams Employment Officer Relationship Specialty Start Date End Date Brenda Canchola MD [address] [place] [address] [place] [address] PCP - General 08/03/10 documented as of this encounter
--- OUTSIDE RECORDS SUMMARY | 2024-04-13 15:39 | XMS_ITS | Encounter Summary ---
Author Organization [facility] Address [address] [place] [address] Care Team Providers Care Wire Machine Operator Name Role Phone Brenda Canchola MD Primary Care Provider [phone] Encounter Details Date Type Department Care Team (Latest Contact Info) Description 02/04/2019 10:07 EDT - 02/04/2019 23:59 EDT Hospital Encounter [facility] [address] [place] [address] Unknown, Provider, Discharge Disposition: Home or Self [...] Code Departure Means Destination Home or Self [facility] documented in this encounter Plan of Treatment Not on file documented as of this encounter Visit Diagnoses Not on filedocumented in this encounter Care Teams Wire Machine Operator Relationship Specialty Start Date End Date Brenda Canchola MD [facility] [facility] [place] [address] PCP - General 08/03/10 documented as of this encounter
--- OUTSIDE RECORDS SUMMARY | 2024-04-13 15:39 | XMS_ITS | Encounter Summary ---
Author Organization [facility] Address [address] [place] [address] Care Team Providers Care Network Technician Name Role Phone Brenda Canchola MD Primary Care Provider [phone] Encounter Details Date Type Department Care Team (Late st Contact Info) Description 11/29/2021 Lab Requisition [facility] Pathology & Laboratory Medicine - [facility] [address] [place], [place] [id number] Outr Resulting Lab, Provider Social History Tobacco [...] IGA <1.2 <4.0 U/mL 12/01/2021 12:26 EDT [facility] Comment: A negative result may be due to IgA deficiency and does not rule out celiac disease. ? Negative: ??<4.0 U/mL ? Weak Positive: ??4.0 - 10.0 U/mL ? Positive: ??>10.0 U/mL Results were obtained with the inEarth QUANTA Lite R h-tTG IgA ELOY assay on the Mbite DSX. IgA 227 85 - 499 mg/dL 12/01/2021 12:26 EDT [facility] Celiac Disease Interpretation Negative Serology. Celiac disease unlikely. Approximately 10% of patients with celiac disease are seronegative. Patients who are already adhering to a gluten-free diet may also be seronegative. If celiac disease is highly clinically suspected, referral to gastroenterology for additional evaluation is recommended. 12/01/2021 12:26 EDT [facility] Blood VENOUS BLOOD / Unknown 11/29/2021 12:35 EDT 11/29/2021 21:43 EDT Provider Outr Resulting Lab IMMUNOLOGY A ND SEROLOGY ORDERABLES Performing Organization Address City/State/[facility] Co de Phone Number [facility] [address] [place] [address] documented in this encounter Visit Diagnoses Not on filedocumented in this encounter Care Teams Network Technician Relationship Specialty Start Date End Date Brenda Canchola MD [address] [place] [address] [place] [address] PCP - General 08/03/10 documented as of this encounter
--- OUTSIDE RECORDS SUMMARY | 2024-04-13 15:39 | XMS_ITS | Encounter Summary ---
Author Organization [facility] Address [address] [place] [address] Care Team Providers Care Pulpwood Dealer Name Role Phone Brenda Renee MD Primary Care Provider [phone] Encounter Details Date Type Department Care Team (Late st Contact Info) Description 09/09/2011 Results Only [facility] Laboratory Services - [facility] ([facility] [address] [place], [place] [id number] Brenda Renee MD [facility] [facility] [place] [address] Social History Tobacco Use Types [...] ? ALIZE MANJARREZ ? Accession #: ? [id number] ? : ? 1960 (Age: 50) ??F [...] MD PATHOLOGY ORDERABLES [facility] [address] [place] [address] documented in this encounter Visit Diagnoses Not on filedocumented in this encounter Care Teams Pulpwood Dealer Relationship Specialty Start Date End Date Brenda Renee MD [address] [place] [address] [place] [address] PCP - General 08/03/10 documented as of this encounter
--- OUTSIDE RECORDS SUMMARY | 2024-04-13 15:39 | XMS_ITS | Referral Summary ---
Author Organization [facility] Address [address] [place] [address] Care Team Providers Care Parts Chaser Name Role Phone Brenda Canchola MD Primary Care Provider [phone] Allergies Active Allergy Reactions Criticality Noted Date [...] 6:45 EDT) HEPATITIS C AB W/REFLEX - [facility] Negative 02/05/2019 8:14 EDT [facility] Comment:Expected Values: Neg ative. 02/05/2019 6:45 EDT 02/05/2019 6:52 EDT Nathan Michael MD CHEMISTRY & BLOOD GA S ORDERABLES [facility] from Last 3 Months or Most Recently Relevant to Health Maintenance Care Teams Parts Chaser Relationship Specialty Start Date End Date Brenda Canchola MD [address] [place] [address] [place] [address] PCP - General 08/03/10
--- OUTSIDE RECORDS SUMMARY | 2024-04-13 15:39 | XMS_ITS | Encounter Summary ---
Author Organization [facility] Address [address] [place] [address] Care Team Providers Care Parakeet Raiser Name Role Phone Brenda Renee MD Primary Care Provider [phone] Encounter Details Date Type Department Care Team (Late st Contact Info) Description 09/21/2011 Results Only [facility] - [facility] ([facility] [address] [place], [place] [phone] Liss Griffiths MD [address] [place] [address] [place] [address] Social History Tobacco Use Types Packs/Day Years [...] ? ALIZE MANJARREZ ? Accession #: ? [id number] ? : ? 1960 (Age: 50) ??F [...] Griffiths on 09/26/2011 at 4:20 p.m. (Dr. Dong)/[facility] Document reviewed and electronically signed by: AME [...] as (A1) and (A2) following filtration. ??(Juanjose Fonseca)/[facility] End of Report [facility] 09/21/2011 09/22/2011 9:0 6 EDT Liss Griffiths MD PATHOLOGY ORDERABLES [facility] [address] [place] [address] documented in this encounter Visit Diagnoses Not on filedocumented in this encounter Care Teams Parakeet Raiser Relationship Specialty Start Date End Date Brenda Renee MD [address] [place] [address] [place] [address] PCP - General 08/03/10 documented as of this encounter
--- OUTSIDE RECORDS SUMMARY | 2024-04-13 15:39 | XMS_ITS | Encounter Summary ---
Author Organization [facility] Address [address] [place] [address] Care Team Providers Care Vitamin Manager Name Role Phone Brenda Canchola MD Primary Care Provider [phone] Encounter Details Date Type Department Care Team (Late st Contact Info) Description 02/05/2019 Historical Results Only [facility] Radiology Results [address] [place] [address] Unknown, Provider, Social History Tobacco Use Types [...] MD ? CC: ? Transcribed Date/Time: 02/05/2019 (4378) ? Pouch Making Machine Operator: ? Printed Date/Time: 03/27/2019 (6788) ? PAGE 2 ? Signed Report ? [...] Doris Posadas MD CC: Transcribed Date/Time: 02/05/2019 (874) Pouch Making Machine Operator: Printed Date/Time: 03/27/2019 (979) PAGE 2 Signed Report Ruby Frederick MD IMG CT ORDERABLES * (ABNORMAL) POCT GLUCOSE (02/05/2019 19:27 EDT) Glucose, POC 121(H) 70 - 100 mg/dL 02/05/2019 19:31 EDT [facility] 02/05/2019 19:2 7 EDT 02/05/2019 19:31 EDT Nathan Michael MD POINT OF CARE TEST O RDERABLES [facility] * US EXTREMITY (02/05/2019 15:12 [...] MD ? CC: ? Transcribed Date/Time: 02/05/2019 (0155) ? Pouch Making Machine Operator: ? Printed Date/Time: 03/27/2019 (1817) ? PAGE 1 ? Signed Report ? Procedure Note Tay Velazquez MD - 05/14/2019 EXAM: ULTRASOUND/DOPPLER VEIN LOWER EXT B EX. D/ (7756) CLINICAL INFORMATION: SBLE - Swelling bilat. lower [...] Velazquez MD CC: Transcribed Date/Time: 02/05/2019 (1515) Pouch Making Machine Operator: Printed Date/Time: 03/27/2019 (1817) PAGE 1 Signed Report Ruby Frederick MD IMG US ORDERABLES * TROPONIN I (02/05/2019 13:30 EDT) Troponin I (ng/mL) <0.034 0.000 - 0.034 ng/mL 02/05/2019 14:06 EDT [facility] Comment: Interpretation comments: ??Cutoff for [...] BLOOD GA S ORDERABLES Performing Organization Address [facility]/ZIP Co de Phone Number [facility] * (ABNORMAL) POCT GLUCOSE (02/05/2019 11:54 EDT) Glucose, POC 223(H) 70 - 100 mg/dL 02/05/2019 11:57 EDT [facility] 02/05/2019 11:5 4 EDT 02/05/2019 11:57 EDT Nathan Michael MD POINT OF CARE TEST O RDERABLES Performing Organization Address [facility]/ZIP Co de Phone Number [facility] * (ABNORMAL) POCT GLUCOSE (02/05/2019 8:02 EDT) Glucose, POC 138(H) 70 - 100 mg/dL 02/05/2019 8:03 EDT [facility] 02/05/2019 8:02 EDT 02/05/2019 8:03 EDT Nathan Michael MD POINT OF CARE TEST O RDERABLES Performing Organization Address [facility]/ZIP Co de Phone Number [facility] * TRANSTHORACIC ECHO (TTE) COMPLETE (02/05/2019 7:06 EDT) Anatomical Region Laterality Modality Ultrasound 02/05/2019 7:06 EDT Narrative 02/05/2019 7:06 EDT ?[facility] ?[facility] [address], [place] [address] ? [id number] ? E C H O C A R D I O G R A M ? R E P O R T NAME: ALIZE MANJARREZ ? : 58 ? LOCATION: 2S ? TELEPHONE: [phone] ?MR#: [id number] ? *[facility]* *[facility]* [address] [place] [address] Date of study: 02/05/2019 Transthoracic Echocardiography M-mode, [...] AM. Test stop time: ??07:56 AM. PERFORMING [place] [place] ?Nathan Michael REFERRING ?? Nathan Michael *PROCEDURE DATA* Procedure information: ??The patient was identified by two identifiers. This study was interpreted by [facility] [place] [facility]. Pertinent images and digital data are archived for permanent storage and are available for subsequent review. No prior study was available for comparison. ??Study status: Routine. Transthoracic echocardiography. ??M-mode, complete 2D, complete ?[facility] ?[address], [place] [address] ? [id number] ? E C H O C A R D I O G R A M ? R E P O R T NAME: ALIZE MANJARREZ ? : 58 ? LOCATION: 2S ? TELEPHONE: [phone] ?MR#: [id number] ? spectral Doppler, and color Doppler. A Transthoracic Echocardiogram was performed. Scanning was performed from the parasternal, apical, subcostal, and suprasternal notch acoustic windows. Images were obtained using a [facility] IE33 2 cardiac ultrasound machine. Image quality [...] cava: The vessel was normal in size. ?[facility] ?[address], [place] [address] ? [id number] ? E C H O C A R D I O G R A M ? R E P O R T NAME: ALIZE MANJARREZ ? : 58 ? LOCATION: 2S ? TELEPHONE: [phone] ?MR#: [id number] ? Measurements Left ventricle ?Value ?Reference LV [...] S 2 ?? LA/aortic root ratio ?1.25 ?[facility] ?[facility] [address], [place] [address] ? [id number] ? E C H O C A R D I O G R A M ? R E P O R T NAME: ALIZE MANJARREZ ? : [birth year] ? LOCATION: 2S ? TELEPHONE: [phone] ?MR#: [id number] ? Mitral valve ?Value ?Reference Mitral E/A [...] Procedure Note Rasta Davis MD - 04/28/2019 [facility] [address] [place], [place] [address] [id number] E C H O C A R D I O G R A M R E P O R T NAME: ALIZE MANJARREZ : 58LOCATION: 2S TELEPHONE: [phone] MR#: [id number] [id number] *[facility]* *[facility]* [address] [place] [address] Date of study: 02/05/2019 Transthoracic Echocardiography M-mode, [...] AM. Test stop time: 07:56 AM. PERFORMING [facility] [place] Nathan Michael REFERRING Nathan Michael *PROCEDURE DATA* Procedure information: The patient was identified by two identifiers. This study was interpreted by [facility] [place] [facility]. Pertinent images and digital data are archived for permanent storage and are available for subsequent review. No prior study was available for comparison. Study status: Routine. Transthoracic echocardiography. M-mode, complete 2D, complete [facility] [address] [place] [address] [id number] E C H O C A R D I O G R A M R E P O R T NAME: ALIZE MANJARREZ : 58LOCATION: 2S TELEPHONE: [phone] MR#: [id number] spectral Doppler, and color Doppler. A Transthoracic Echocardiogram was performed. Scanning was performed from the parasternal, apical, subcostal, and suprasternal notch acoustic windows. Images were obtained using a [facility] IE33 2 cardiac ultrasound machine. Image quality [...] cava: The vessel was normal in size. [facility] [address] [place], [place] [address] [id number] E C H O C A R D I O G R A M R E P O R T NAME: ALIZE MANJARREZ: 58LOCATION: 2S TELEPHONE: [phone] MR#: [id number] [facility]#:[id number] Measurements Left ventricle Value Reference LV ID, [...] ml/m S 2 LA/aortic root ratio 1.25 [facility] [address] [place], [place] [address] [id number] E C H O C A R D I O G R A M R E P O R T NAME: ALIZE MANJARREZ MONIE: 58LOCATION: 2S TELEPHONE: [phone] MR#: [id number] [facility][id number] Mitral valve Value Reference Mitral E/A ratio, [...] ORDERAB LES * MAGNESIUM (02/05/2019 6:45 EDT) [facility] Magnesium 2.30 1.7 - 2.8 mg/dL 02/05/2019 7:46 EDT [facility] 02/05/2019 6:45 EDT 02/05/2019 6:52 EDT Nathan Michael MD CHEMISTRY & BLOOD GA S ORDERABLES [facility] * (ABNORMAL) LIPID PROFILE (INCLUDES CHOLESTEROL, TRIGLYCERIDES, HDL, LDL) (02/05/2019 6:45 EDT) [facility] Triglyceride 181 <150 mg/dL 02/05/2019 7:46 EDT [facility] Comment: Adult: Normal: ?<150 mg/dl ? Borderline High: 150-199 mg/dl ? High: ?200-499 mg/dl ? Very High: >ts=184 Cholesterol 129 <200 mg/dL 02/05/2019 7:46 T [facility] Comment: Acceptable: ??<200 Borderline: ??200-239 High: ?> or = 240 Chol/HDL Ratio 4.1 0 - 4.5 02/05/2019 7:46 [facility] Comment: DESIRABLE RATIO IS LESS THAN 4.1 PATIENTS ARE CONSIDERED AT RISK: WOMEN RATIO >5 MEN RATIO >6 FASTING? - [facility] Unknown 9 7:54 [facility] HDL 31(L) 40 - 60 mg/dL 02/05/2019 7:46 [facility] Comment: ?? Reference Range Low: ? < 40 ??mg/dL Normal: ??40-60 mg/dL High: ?>= 60 mg/dL LDL CHOLESTEROL - [facility] 62 60 - 100 mg/dL 02/05/2019 7:46 [facility] Non HDL Cholesterol 98 mg/dl 02/05/2019 7:46 [facility] Comment: Desirable: ?Less than 130 Borderline High: ??130-159 High: ? 160-189 Very High: ?Greater than or equal to 190 02/05/2019 6:45 EDT 02/05/2019 6:52 EDT Nathan Michael MD CHEMISTRY & BLOOD GA S ORDERABLES [facility] * (ABNORMAL) COMPREHENSIVE METABOLIC PANEL (CMP) (02/05/2019 6:45 EDT) Albumin % 3.0(L) 3.4 - 4.9 g/dL 02/05/2019 7:46 EDT [facility] ALKALINE PHOSPHATASE - [facility] 53 38 - 126 U/L 02/05/2019 7:46 EDT [facility] BILIRUBIN TOTAL 0.9 0.2 - 1.3 mg/dL 02/05/2019 7:46 [facility] BUN - [facility] 14 10 - 26 mg/dL 02/05/2019 7:46 [facility] CALCIUM - [facility] 8.9 8.5 - 10.5 mg/dL 02/05/2019 7:46 [facility] Chloride 101 96 - 110 mmol/L 02/05/2019 7:46 [facility] CO2 Total 29 22 - 32 mEq/L 02/05/2019 7:46 [facility] CREATININE 0.65 0.52 - 1.04 mg/dL 02/05/2019 7:46 [facility] eGFR >60 02/05/2019 7:46 [facility] Comment: Chronic renal impairment is defined as GFR <60 Multiply result by 1.210 for patients. eGFR calculated using the IDMS-traceable MDRD Study Equation. ??(effective 05/12/2014) Anion Gap 5 0 - 18 02/05/2019 7:46 [facility] GLUCOSE - [facility] 136(H) 70 - 100 mg/dL 02/05/2019 7:46 [facility] Potassium 4.3 3.5 - 5.0 mEq/L 02/05/2019 7:46 [facility] Sodium 135(L) 136 - 145 mEq/L 02/05/2019 7:46 [facility] TOTAL PROTEIN - [facility] 5.3(L) 6.2 - 8.2 gm/dL 02/05/2019 7:46 [facility] SGOT/AST - [facility] 85(H) 14 - 36 U/L 02/05/2019 7:46 [facility] SGPT/ALT - [facility] 118(H) 9 - 52 U/L 9 7:46 [facility] 02/05/2019 6:45 EDT 02/05/2019 6:52 EDT Nathan Michael MD CHEMISTRY & BLOOD GA S ORDERABLES [facility] * (ABNORMAL) TROPONIN I (02/05/2019 6:45 EDT) Pathologist [facility] Troponin I (ng/mL) 0.038(HH) 0.000 - 0.034 ng/mL 02/05/2019 8:03 EDT [facility] Comment: Result called to EBONY [...] BLOOD GA S ORDERABLES Performing Organization Address [facility] Co de Phone Number [facility] * HEPATITIS C AB W REFLEX TO HCV RNA BY PCR (02/05/2019 6:45 EDT) Pathologist [facility] HEPATITIS C AB W/REFLEX - [facility] Negative 02/05/2019 8:14 EDT [facility] Comment:Expected Values: Neg ative. 02/05/2019 6:45 EDT 02/05/2019 6:52 EDT Nathan Michael MD CHEMISTRY & BLOOD GA S ORDERABLES Performing Organization Address [facility] Co de Phone Number [facility] * HEPATITIS B SURFACE ANTIGEN (02/05/2019 6:45 EDT) Pathologist [facility] Hep B Surface Ag Negative 02/05/2019 8:14 EDT [facility] Comment: Expected Values: ??Negative. The results of this assay can be falsely lowered due to the consumption of Biotin. 02/05/2019 6:45 EDT 02/05/2019 6:52 EDT Nathan Michael MD CHEMISTRY & BLOOD GA S ORDERABLES [facility] * COMPLETE BLOOD COUNT WITH DIFFERENTIAL (AUTO) (02/05/2019 6:45 EDT) ABSOLUTE NEUTROPHIL COUN - [facility] 6.5 2.2 - 8.85 10e3/uL 02/05/2019 7:21 EDT [facility] BASO # - [facility] 0.01 0.01 - 0.11 10e/uL 02/05/2019 7:21 [facility] BASO % - [facility] 0 0 - 2 % 02/05/2019 7:21 [facility] EOS # - [facility] 0.14 0.03 - 0.61 10e3/ul 02/05/2019 7:21 [facility] EOS % - [facility] 1 0 - 5 % 02/05/2019 7:21 [facility] GRAN % - [facility] 63.7 40 - 80 % 02/05/2019 7:21 [facility] HEMATOCRIT - [facility] 38.1 34.9 - 44.4 % 02/05/2019 7:21 [facility] HEMOGLOBIN - [facility] 12.9 11.6 - 15.2 g/dl 02/05/2019 7:21 [facility] IG# - [facility] 0.08 0 - 0.7 10e3/uL 02/05/2019 7:21 [facility] IG% - [facility] 0.8 0 - 0.9 % 02/05/2019 7:21 [facility] LYMPH # - [facility] 2.8 1.09 - 3.3 10e3/ul 02/05/2019 7:21 [facility] LYMPH% - [facility] 26.9 20 - 40 % 02/05/2019 7:21 [facility] MEAN CORPUSCULAR HGB - [facility] 29.5 26.7 - 33.3 pg 02/05/2019 7:21 [facility] MEAN CORPUSCULAR HGB CONC - [facility] 33.9 32.1 - 35.9 g/dL 02/05/2019 7:21 EDT [facility] MEAN CELL VOLUME - [facility] 87.2 81 - 98 fl 02/05/2019 7:21 EDT [facility] MONO # - [facility] 0.7 0.1 - 0.8 10e3/uL 02/05/2019 7:21 EDT [facility] MONO% - [facility] 7.1 0 - 12 % 02/05/2019 7:21 EDT [facility] PLATELET COUNT 314 141 - 377 10e3/ul 02/05/2019 7[facility] RED BLOOD COUNT - [facility] 4.37 3.86 - 5.04 10e3/ul 02/05/2019 7:21 EDT [facility] RED CELL DISTRI WIDTH - [facility] 14.4 <14.7 % 02/05/2019 7:21 [facility] WHITE BLOOD COUNT - [facility] 10.3 4.0 - 12.4 10e3/ul 02/05/2019 7:21 EDT [facility] 02/05/2019 6:45 EDT 02/05/2019 6:52 EDT Nathan Michael MD HEMATOLOGY & PF4 ORD ERABLES [facility] * (ABNORMAL) POCT GLUCOSE (02/05/2019 0:02 EDT) Glucose, POC 121(H) 70 - 100 mg/dL 02/05/2019 0:43 EDT [facility] 02/05/2019 0:02 EDT 02/05/2019 0:43 EDT Nathan Michael MD POINT OF CARE TEST O RDERABLES [facility] documented in this encounter Visit Diagnoses Not on filedocumented in this encounter Care Teams Vitamin Manager Relationship Specialty Start Date End Date Brenda Canchola MD [address] [place] [address] [place] [address] PCP - General 08/03/10 documented as of this encounter
--- OUTSIDE RECORDS SUMMARY | 2024-04-13 15:40 | XMS_ITS | Encounter Summary ---
Author Organization [facility] [place] [address] Care Team Providers Care Cpa Tax Name Role Phone Rodney Padilla MD Primary Care Provider [phone] Reason for Visit * Reason Onset Date Comments Medication Refill 02/18/2024 Encounter Details Date Type Department Care Team (Late st Contact Info) Description 02/18/2024 Refill Family Medicine at [facility] [address] [place] [phone] Rodney Padilla MD [address] [facility] [place] [address] Essential hypertension Social History Tobacco Use Types [...] Care Team (Late st Contact Info) Description 05/01/2024 11:20 AM EDT Appointment Mammography/[place] [address] Rodney Padilla MD [address] [place] [address] 05/01/2024 1:45 PM EDT Office [place] [phone] Juanpablo Hernandez MD [facility] [place] [address] 05/23/2024 2:45 PM EST Clinical Support Family Medicine at [facility] [address] [place] [phone] Julia Low [facility] 01/30/2025 1:30 PM EDT Laboratory Appointment Lab [place] [facility] [place] Oncology [address] [place] [address] 01/30/2025 3:[address] [place] [address] Arturo Cordero MD [facility] [address] [place] [address] 01/30/2025 4:15 PM EDT Office Visit Hematology [place] [address] Arturo Cordero MD [facility] [address] [place] [address] documented as of this encounter Visit Diagnoses Diagnosis Essential hypertension Unspecified essential hypertension documented in this encounter Care Teams Cpa Tax Relationship Specialty Start Date End Date Rodney Padilla MD [address] [place] [address] PCP - General 07/18/22 04/09/24 documented as of this encounter
--- OUTSIDE RECORDS SUMMARY | 2024-04-13 15:40 | XMS_ITS | Encounter Summary ---
Author Organization [facility] [place] [address] Care Team Providers Care Leaf Stamper Name Role Phone Rodney Padilla MD Primary Care Provider Reason for Referral * Diagnostic Test (Routine) - New Request Specialty Diagnoses / Procedures Referred By Contac t Referred To Contact Radiology Diagnoses Malignant melanoma of conjunctiva, left Procedures CT Neck Soft Tissue w Contrast (Generic) Arturo Cordero MD [facility] [place] [address] [facility] [place] [address] Referral ID Status Reason Start Date Expiration Date Visits Requested Visits Authorized [id number] New Request Specialty Service Requested 02/02/2024 08/04/2025 1 1 * Diagnostic Test (Routine) - New Request Specialty Diagnoses / Procedures Referred By Contac t Referred To Contact Radiology Diagnoses Lung nodule Renal cell cancer, left Procedures CT Chest Abdomen Pelvis w Contrast (Generic) Arturo Cordero MD [facility] [place] [address] [facility] [place] [address] Referral ID Status Reason Start Date Expiration Date Visits Requested Visits Authorized [id number] New Request Specialty Service Requested 02/02/2024 08/04/2025 1 1 Reason for Visit * Reason Comments Follow-up Encounter Details Date Type Department Care Team (Late st Contact Info) Description 02/01/2024 11:15 AM EDT Office Visit Hematology [place] [address] Arturo Cordero MD [facility] [place] [address] Malika Luna APRN [facility] [place] [address] Malignant melanoma of conjunctiva, left (Primary Dx); [...] from the original note were not included. [facility] NOTE REFERING PHYSICIAN: Dr. Juanpablo [...] management - fall 2018: saw a new professional volleyball player and was referred to Dr. 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 Medina - 03/31/2020: saw her professional volleyball player Dr. 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, 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 [...] 05/01/2024 11:20 AM EDT Appointment Mammography/[place] [phone] Rodney Padilla MD [address] [place] [place] [address] 05/01/2024 1:45 PM EDT Office [place] [phone] Juanpablo Hernandez MD [facility] [place] [address] 05/23/2024 2:45 PM EST Clinical Support Family Medicine at [facility] [address] [place] [address] Julia Low [facility] 01/30/2025 1:30 PM EDT Laboratory Appointment Lab at [facility] Hematology Oncology [address] [place] [address] 01/30/2025 3:[address] [place] [phone] Arturo Cordero MD [facility] [place] [address] 01/30/2025 4:15 PM EDT Office Visit Hematology [place] [phone] Arturo Cordero MD [facility] [address] [place] [address] Scheduled Orders Name Type Priority Associated Diagnoses [...] left documented in this encounter Care Teams Leaf Stamper Relationship Specialty Start Date End Date Rodney Padilla MD [address] [place] [address] PCP - General 07/18/22 04/09/24 documented as of this encounter
--- OUTSIDE RECORDS SUMMARY | 2024-04-13 15:40 | XMS_ITS | Encounter Summary ---
Author Organization [facility] Address [facility] [place] [address] Care Team Providers Care Scientific Research Associate Name Role Phone Rodney Padilla MD Primary Care Provider [phone]- [phone] Encounter Details Date Type Department Care Team (Latest Contact Info) Description 03/19/2024 Travel Social History Tobacco Use Types Packs/Day [...] 05/01/2024 11:20 AM EDT Appointment Mammography/[place] [phone] Rodney Padilla MD [address] [place] [address] 05/01/2024 1:45 PM EDT [place] [address] Juanpablo Hernandez MD [facility] [place] [address] 05/23/2024 2:45 PM EST Clinical Support Family Medicine at [facility] [address] [place] [phone] Julia Low [facility] 01/30/2025 1:30 PM EDT Laboratory Appointment Lab at [facility] Hematology Oncology [address] [place] [address] 01/30/2025 3:[address] [place] [place] [phone] Arturo Cordero MD [facility] DR HEMATOLOGY [place] [address] 01/30/2025 4:15 PM EDT Office Visit Hematology [place] [address] Arturo Cordero MD [facility] DR HEMATOLOGY [place] [address] documented as of this encounter Visit Diagnoses Not on filedocumented in this encounter Care Teams Scientific Research Associate Relationship Specialty Start Date End Date Rodney Padilla MD [address] [place] [address] PCP - General 07/18/22 04/09/24 documented as of this encounter
--- OUTSIDE RECORDS SUMMARY | 2024-04-13 15:40 | XMS_ITS | Encounter Summary ---
Author Organization [facility] [place] [address] Care Team Providers Care Stain Maker Name Role Phone Rodney Padilla MD Primary Care Provider Encounter Details Date Type Department Care Team (Late st Contact Info) Description 02/28/2024 Notes Only [facility] [address] [place] [address] Barbra Martínez C, RT Social History Tobacco [...] 11:20 AM EDT Appointment Mammography/[place] [address] Rodney Padilla MD [address] [place] [place] [address] 05/01/2024 1:45 PM EDT Office [place] [address] Juanpablo Hernandez MD [facility] [place] [address] 05/23/2024 2:45 PM EST Clinical Support Family Medicine at [facility] [address] [place] [address] Julia Low [facility] 01/30/2025 1:30 PM EDT Laboratory Appointment Lab at [facility] Hematology Oncology [address] [place] [address] 01/30/2025 3:[address] [place] [address] Arturo Cordero MD [facility] DR HEMATOLOGY [place] [address] 01/30/2025 4:15 PM EDT Office Visit Hematology [place] [address] Arturo Cordero MD [facility] DR HEMATOLOGY [place] [address] documented as of this encounter Visit Diagnoses Not on filedocumented in this encounter Care Teams Stain Maker Relationship Specialty Start Date End Date Rodney Padilla MD [address] [place] [place] [address] PCP - General 07/18/22 04/09/24 documented as of this encounter
--- OUTSIDE RECORDS SUMMARY | 2024-04-13 15:40 | XMS_ITS | Encounter Summary ---
Author Organization [facility] Address One [facility] [place] [address] Care Team Providers Care Health Manager Name Role Phone Rodney Padilla MD Primary Care Provider [phone] Reason for Visit * Reason Comments Diabetes Encounter Details Date Type Department Care Team (Late st Contact Info) Description 03/20/2024 2:00 PM EDT TH Visit (TeleHealth) Family Medicine at [facility] [address] [place] [address] Julia Low, [facility] Type 2 diabetes mellitus without [...] Progress Notes * Julia Low RPH - 03/20/2024 2:00 PM EDT Images from the original note were not included. This patient was discussed at the time of the clinic encounter. The assessment and plan were formulated in discussion with me and I agree with them as documented. I have reviewed the recommendations with the pharmacy learner. Pharmacist was present for the duration of the encounter. Julia Low RPH, BCACP 03/21/24 2:17 PM Stop lantus Increase mounjaro * Kelsey Neves RPH - 03/20/2024 2:00 PM EDT Images from the original note were not included. Clinical Pharmacist Consultation; Kelsey Neves RPH Visit Type: Telehealth Video Follow-up Type II Diabetes Mellitus (DM) Medication Management Subjective Subjective: Patient ID: Alize Gramajo is a 63 y.o. female She is here for follow up of their type II diabetes. Length of DM [] New dx Year of diagnosis: unk earliest reports 2018 Diabetic complications: PMH notable for any of the following conditions: Yes peripheral neuropathy and cardiovascular disease (DE/CAD) [] History of diabetes-related amputations [] CHF [] Personal or family history of thyroid cancer [] Personal history of pancreatitis [x] NAFLD/BARRERA - Qt of fatty liver on CT scan from 2021 unclear if ever evaluated and ruled in/out Date of last eye exam: unknown Date of last foot exam: unknown Referring Provider/date: Rodney Padilla MD 06/14/21 Tamera Khan [employer] SUPERVISOR Health Beliefs and Attitudes Feelings about having DM excited The pt is in an action stage of making changes to manage their diabetes Factors causing stress (health, money, job, social) Family stressors & stomach pain Barriers Identified: Per Patient reports that after being sick with a virus, and a hospital admission, she has speech and cognitive problems. Medication Management Adherence tools include [x] Pillbox [x] Reminder alarms [] Med List [] Other [] None Clinical Practice Standards: Statin:yes - simvastatin 10 mg HESHAM/ARB: yes - losartan 100 mg Aspirin: yes - asa 81 mg and clopidogrel -Uses [facility] -Prefers oral therapies to injections but willing to try injectable meds Diabetes medication regimen: Metformin XR 500 mg 2 tabs BID Mounjaro 2.5 mg once weekly; started 12/20/23 and has kicked herself for not starting sooner Prior diabetes therapy trials: Lantus stopped by pt due to hypoglycemia following addition of mounjaro Never started Rybelsus or Ozempic d/t fear of stomach SE/FARZAD glimepiride caused hypoglycemia in the afternoon Did not tolerate Tresiba Trulicity and ozempic stopped d/t GI intolerance Home Glucose Monitoring are performed regularly using Dexcom CGM G7 Receives Dexcom G7 CGM through [employer]. Prior Averages: 08/26/21 09/09/21 09/24/21 11/14/21 11/03/22 12/01/22 01/03/23 08/18/23 10/26/23 Daily Avg 157 168 131 138 175 153 176 211 152 eA1c [id number] 8.46 7.20 7.44 8.7 7.95 8.75 9.96 7.92 Acute complications of diabetes: hypoglycemia pt reported BG 70 mg/dL following initiation of mounjaro leading to discontinuation oflantus Have you had a low blood sugar reaction? If yes, how did you feel? Yes, notified by [place] [employer] alert ; treated with 20 oz coca-cola [] Denies [] Shaking [] Sweating [] Weakness/fatigue [] Dizziness [] Blurred vision [] Other Have you had high blood sugar? If yes, how did you feel? Unknown [] Denies [] Polydipsia [] Polyuria [] Polyphagia [] Other Lifestyle Deferred due to time Objective Objective: Allergies and Drug intolerance: Allergies Allergen Reactions Codeine Phosphate Nausea And Vomiting Erythromycin Base Nausea Only Azithromycin Ibuprofen Stomach upset Lisinopril cough Nsaids (Non-Steroidal Anti-Inflammatory Drug) Nausea And Vomiting Medication List: Current Outpatient Medications Medication Sig Dispense Refill Mounjaro 5 mg/0.5 mL Pen Injector Inject 5 mg subcutaneously once a week. Indications: type 2 diabetes mellitus 2 mL 11 albuteroL 90 mcg/actuation inhaler (HFA) Inhale 2 puffs into the lungs every 4 hours as needed for Wheezing. USE WITH SPACER amLODIPine (Norvasc) 5 mg tablet Take 1 [...] times daily (with meals). 360 tablet 3 metoprolol succinate XL (Toprol-XL) 25 mg ER 24 hr tablet Take 1 tablet by mouth daily. 90 tablet 3 clopidogreL (Plavix) 75 mg tablet Take 1 tablet by mouth daily. 90 tablet 3 simvastatin (Zocor) 10 mg tablet Take 1 tablet by mouth daily. 90 tablet 3 BD Alcohol Swabs Pads, Medicated USE TOPICALLY ONCE DAILY 100 each 3 fluticasone cnkacrx-oycdkxbhqlrw-iryvlqgell (Trelegy Ellipta) 200-62.5-25 mcg Inhale 1 puff into the lungs daily. Rinse mouth after use 1 each 11 fluticasone propionate (Flonase) 50 mcg/actuation [place], Suspension SPRAY 1 SPRAY IN EACH NOSTRIL TWO TIMES A DAY 48 mL 3 lamoTRIgine (LaMICtal) 150 mg tablet Take 150 mg by mouth Daily at Noon. Blood-Glucose Meter,Continuous (Dexcom G7 [employer] [place] Equipment Repairer) Misc [address] [facility].(Non- Drug; Combo Route) route continuous. Blood-Glucose Sensor (Dexcom G7 Sensor) Device [address] [facility].(Non-Drug; Combo Route) route every10 days. 3 each 11 lamoTRIgine (LaMICtal) 25 mg tablet Take 50 mg by mouth nightly. Indications: bipolar disorder in remission sucralfate (Carafate) 100 mg/mL Suspension Take 10 mLs by mouth 4 times daily. 3726 mL 3 loratadine (Claritin) 10 mg Tablet Take 1 tablet by mouth daily. 90 tablet 3 melatonin 10 mg Capsule Take 1 capsule by mouth nightly. LORazepam (Ativan) 0.5 mg Tablet busPIRone (Buspar) 30 mg Tablet Take 30 mg by mouth 2 times daily. traZODone (Desyrel) 100 mg Tablet Take 1 tablet by mouth nightly. 90 tablet 3 aspirin EC 81 mg Tablet, Delayed Release (E.C.) Take 81 mg by mouth daily. dicyclomine (Bentyl) 10 mg capsule Take 10 mg by mouth 4 times daily (before meals and nightly). Miscellaneous Medical Supply [facility] by [facility].(Non-Drug; Combo Route) route. docusate sodium (Colace) 100 mg capsule Take 1 capsule by mouth daily. 90 capsule 3 polyethylene glycoL (Miralax) 17 gram oral powder packet Take 17 g by mouth daily. 90 each 3 Lantus Solostar U-100 Insulin 100 unit/mL (3 mL) pen Inject 10 Units subcutaneously nightly. Indications: type 2 diabetes mellitus (Patient not taking: Reported on 03/20/2024) tretinoin (RETIN-A) 0.025 % Cream Apply a pea size amount to the face nightly. As it can be irritating, start 2-3 times per week and slowly increase to nightly use. Can also mix with a bland moisturizer to help with irritation. (Patient not taking: Reported on 03/20/2024) 45 g 0 insulin needles, disposable, 32 gauge x 5/32 Needle Inject 1 each subcutaneously daily. Indications: diabetes (Patient not taking: Reported on 03/20/2024) 100 each 11 nicotine (Nicoderm CQ) 21 mg/24 hr Patch 24 hr Change 1 patch on the skin daily. See package instructions (Patient not taking: Reported on 03/20/2024) 28 patch 1 nicotine polacrilex (Nicorette) 4 mg gum Take 1 each by mouth every 2 hours as needed for Smoking cessation. Nothing but water 15 min before or during use. (Patient not taking: Reported on 03/20/2024)100 each 3 inhalational spacing device (Hesham Aerosol [place] Enhancer) Spacer 1 each by Misc.(Non-Drug; Combo Route) route as needed. 1 each 2 freestyle lite strips USE TO TEST THREE TIMES A DAY (Patient not taking: Reported on 01/01/2024) 300strip 3 FreeStyle Lancets 28 gauge Misc 1 each by Other route 3 times daily. Indications: diabetes (Patientnot taking: Reported on 01/01/2024) 100 each 11 FreeStyle Lite Meter Kit No current facility-administered medications for this visit. Most Recent Vitals: BP Readings from Last 3 Encounters: 03/20/24 138/80 02/01/24 (!) 144/91 12/20/23 130/78 BMI Readings from Last 3 Encounters: 03/20/24 42.52 kg/m?? 02/27/24 42.51 kg/m?? 02/01/24 42.85 kg/m?? Wt Readings from Last 3 Encounters: 02/27/24 108.9 kg (240 lb) 02/01/24 109.7 kg (241 lb 13.5 oz) 12/20/23 110.3 kg (243 lb 3.2 oz) Pertinent Lab values: Lab Results Component Value Date NA 140 02/01/2024 K 4.7 02/01/2024 CL 105 02/01/2024 CO2 25 02/01/2024 BUN 14 02/01/2024 CREATININE 0.90 02/01/2024 GLUCOSE 162 02/01/2024 GLUCFASTING 116 (H) 06/29/2019 CALCIUM 9.4 02/01/2024 ESTGFR 71 02/01/2024 Last 3 Hemoglobin A1Cs Lab Results Component Value Date HA1C 7.7 (H) 03/20/2024 HA1C 9.4 (H) 12/20/2023 HA1C 9.2 (H) 09/19/2023 Lab Results Component Value Date CHLPL 141 06/20/2023 HDL 41 06/20/2023 CHOLHDL 3.4 06/20/2023 TRIG 96 06/20/2023 LDLCHOL 81 06/20/2023 Immunization history: Immunization status: missing shingrix Current Immunizations Name Date Covid-19 (Pfizer), Gordon Cap Bivalent 30mcg (12Yrs+) 06/07/2022 INFLUENZA 05/10/2007 Influenza Quadrivalent with Preservative 05/06/2020 Influenza Quadrivalent, Preservative Free 06/20/2023, 06/07/2022, 05/31/2021, 04/09/2019, 05/08/2015 Pneumococcal Conjugate (Prevnar 13) 04/09/2019 Pneumococcal Polysaccharide (Pneumovax 23) 05/10/2007 TD Adult 10/07/2005 Td Adult, Absorbed, Preservative Free 06/24/2011, 09/07/2005 Tdap 04/09/2019, 06/24/2011 Prescription Insurance: No value filed. Assessment and Recommendations: Diabetes: Lab Results Component Value Date HA1C 7.7 (H) 03/20/2024 Clinic A1c is not at goal based on referral specified goal of <7% on diabetes regimen consistingof metformin and prandial coverage using mounjaro. However, this differs from GMI of 6.6 from DaM-Factorom G7. Possible contributors to deviation between laboratory A1c and CGM GMI include family stressors and stomach pain Called [facility] [address] lab to rule out laboratory error Recommend calibrating Dexcom during next in-person visit Appears She is adherent to meds with no side effects Pt does not relate stomach/GI issues with mounjaro as she had them previously Home glucose has significantly improved with time in range at 94%. Today will continue without lantus and increase mounjaro to 5 mg once weekly. Blood Pressure: BP Readings from Last 3 Encounters: 03/20/24 138/80 02/01/24 (!) 144/91 12/20/23 130/78 Clinic BP is well controlled with antihypertensive [...] Yes Tobacco smoker: Yes Systolic Blood Pressure: 138 mmHg Is BP treated: Yes HDL Cholesterol: 41 mg/dL Total Cholesterol: 141 mg/dL Patient's LDL is currently at goal per most recent labs. She is currently prescribed simvastatin. Plan: Treatment changes: Diabetes Medication Regimen at conclusion of 03/20/24 encounter: Metformin XR 500 mg 2 tabs BID INCREASED Mounjaro 5 mg once weekly STOP Lantus 18 units once daily There are no diagnoses linked to this encounter. Efforts to improve adherence to therapy plan (if necessary) will be directed at: Congratulated on GMI 6.6 and TIR 95% Alize was seen today for diabetes. Diagnoses and all orders for this visit: Type 2 diabetes mellitus without long-term current use of insulin - Mounjaro 5 mg/0.5 mL Pen Injector; Inject 5 mg subcutaneously once a week. Indications: type 2 diabetes mellitus Follow up in 2 months to review Dexcom data Pt verbalized agreement and understanding of plan with no further questions at this time. Pt understands IF NO CPA ON FILE no changes to current drug regimen were made at the appointment and that RPhis providing recommendations for provider review and follow up. Kelsey Neves RPH 03/21/24 Total time spent: 45 minutes documented in this encounter Plan of Treatment Upcoming Encounters Date Type Department Care Team (Late st Contact Info) Description 05/01/2024 11:20 AM EDT Appointment Mammography/[place] [address] Rodney Padilla MD [address] [place] [place] [address] 05/01/2024 1:45 PM EDT Office [place] [address] Juanpablo Hernandez MD [facility] [place] [address] 05/23/2024 2:45 PM EST Clinical Support Family [facility] at [facility] [address] [place] [address] Julia Low, [facility] 01/30/2025 1:30 PM EDT Laboratory Appointment Lab at [facility] Hematology Oncology [address] [place] [address] 01/30/2025 3:[address] [place] [address] Arturo Cordero MD [facility] DR HEMATOLOGY [place] [address] 01/30/2025 4:15 PM EDT Office Visit Hematology [place] [address] Arturo Cordero MD [facility] DR HEMATOLOGY [place] [address] documented as of this encounter Visit Diagnoses Diagnosis Type 2 diabetes mellitus without long-term current use of insulin- Primary documented in this encounter Care Teams Health Manager Relationship Specialty Start Date End Date Rodney Padilla MD [address] [place] [address] PCP - General 07/18/22 04/09/24 documented as of this encounter
--- OUTSIDE RECORDS SUMMARY | 2024-04-13 15:40 | XMS_ITS | Encounter Summary ---
Author Organization [facility] Address [address] [place] [address] Care Team Providers Care Bottle Packer Name Role Phone Unavailable Primary Care Provider Unavailabl e Encounter Details Date Type Department Care Team (Late st Contact Info) Description 04/30/2010 Results Only [facility] Laboratory Services - [facility] ([facility]) [address] [place], [place] [address] Brenda Renee MD [address] [place] [address] [address] [place], [place] [id number] Social History Tobacco Use Types Packs/Day Years [...] ? ALIZE MANJARREZ ? Accession #: ? [id number] ? : ? 1960 (Age: 49) ??F [...] Renee MD PATHOLOGY ORDERABLES Performing Organization Address City/State/[facility] Co de Phone Number MAGDIEL VARGAS [address] [phone] documented in this encounter Visit Diagnoses Not on filedocumented in this encounter
--- OUTSIDE RECORDS SUMMARY | 2024-04-13 15:40 | XMS_ITS ---
Author Organization [facility] [place] [address] Care Team Providers Care Firebreak Cutter Name Role Phone Daryn Garrett MD Primary Care Provider Active Problems Problem Noted Date Diagnosed Date [...] 07/2018 Overview (08/01/2019): 2018 Normal Pap, HPV Gas Torch [place] eConsult 2019: She should have pap/HPV cotest [...] in remission 05/10/20 Overview (05/10/2019): Diagnosis in [facility] records, unconfirmed Anxiety 05/09/2019 Type 2 diabetes [...] that hospitalization.. Coronary artery disease invo lving [place] coronary artery of [place] heart with angina pectoris 10/09/2007 Overview (06/27/2019): [...] treatments are documented for this patient in Psychiatric. Treatments may have been administered in another [...]
--- OUTSIDE RECORDS SUMMARY | 2024-04-13 15:40 | XMS_ITS | Encounter Summary ---
Author Organization [facility] Address [address] [place] [address] Care Team Providers Care Display Specialist Name Role Phone Brenda Canchola MD Primary Care Provider [phone] Reason for Visit * Reason Comments Joint Pain Encounter Details Date Type Department Care Team (Late st Contact Info) Description 08/04/2010 13:00 EST Office Visit [facility] Rheumatology & Immunology - [address] [phone] Del iN MD [address] [place] [address], [address] [place] [phone] Miguel Leonard MD [address] [place] [phone] Osteoarthritis (Primary Dx) Social History Tobacco Use [...] be very helpful. 3. You can try Posen 3 fatty acids- 2,000 to 3000 mg per day. Talk with your binder cutter to make sure this is okay with [...] It is hard to hold a pen, head knitting machine fixer a washcloth or snowblower because it's hard [...] with 11 refills 5. Can also try Posen 3 fatty acids, 1620-4915 mg daily but discuss with binder cutter first to makesure this is okay with [...] GA S ORDERABLES [facility] [address] [place] [address] * SED. RATE:WESTERGREN (08/04/2010 15:46 EST) Sed. Rate Westergren 14 0 - 30 mm/hr [facility] Blood specimen (specimen) 08/04/2010 15:46 EST 08/04/2010 15:49 EST Del Ni MD HEMATOLOGY & PF4 ORD ERABLES [facility] [address] [place] [address] * VITAMIN D (25,OH) (08/04/2010 15:46 EST) 25OH Vitamin D Tot 46.6 ng/ml [facility] Comment: Reference Range: <10 ng/ml: Deficient 10-30 ng/ml: Insufficient 30-100 ng/ml: Sufficient >100 ng/ml: Toxic Blood specimen (specimen) 08/04/2010 15:46 EST 08/04/2010 15:49 EST Del Ni MD CHEMISTRY & BLOOD GA S ORDERABLES Performing Organization Address [facility] de Phone Number [facility] [address] [place] [address] * TSH (08/04/2010 15:46 EST) TSH 1.67 0.35 - 5.00 uIU/ml [facility]EL [facility] Blood specimen (specimen) 08/04/2010 15:46 EST 08/04/2010 15:49 EST Del Ni MD CHEMISTRY & BLOOD GA S ORDERABLES Performing Organization Address [facility] [place] [address] * HIP UNILATERAL 1 VIEW (08/04/2010 15:00 EST) Anatomical Region Laterality Modality Other 08/04/2010 15:0 0 EST 08/05/2010 14:54 EST Narrative 08/05/2010 14:54 EST Two views of the left hand, 2 views of the right hand, AP ortho pelvis, and frog-leg lateral views of both hips dated Aug 04, 2010. Clinical history: 715.60-DXWNRSZQGGIAZZ-P4. bilateral hand pain and swelling. Bilateral hip [...] hips dated Aug 04, 2010. Clinical history: 715.01-LATIQCRTEQFGJY-O7. bilateral hand pain and swelling. Bilateral hip [...] hips dated Aug 04, 2010. Clinical history: 715.28-JPSKHJFVUKAMFN-L6. bilateral hand pain and swelling. Bilateral hip [...] hips dated Aug 04, 2010. Clinical history: 715.61-QZKJIIMUVSLQXU-E4. bilateral hand pain and swelling. Bilateral hip [...] hips dated Aug 04, 2010. Clinical history: 715.48-ZNYCKEJQKWVRLX-C6. bilateral hand pain and swelling. Bilateral hip [...] hips dated Aug 04, 2010. Clinical history: 715.45-JSJUCQJXKSERGG-N3. bilateral hand pain and swelling. Bilateral hip [...] hips dated Aug 04, 2010. Clinical history: 715.58-XXNBSBPQMVJDAA-D4. bilateral hand pain and swelling. Bilateral hip [...] hips dated Aug 04, 2010. Clinical history: 715.72-USICQMAALSYTPU-U7. bilateral hand pain and swelling. Bilateral hip [...] needed. added in this encounter Care Teams Display Specialist Relationship Specialty Start Date End Date Brenda Canchola MD [address] [place] [address] [place] [address] PCP - General 08/03/10 documented as of this encounter
--- OUTSIDE RECORDS SUMMARY | 2024-04-13 15:40 | XMS_ITS | Encounter Summary ---
Author Organization [facility] [place] [address] Care Team Providers Care Phlebotomy Specialist Name Role Phone Rodney Padilla MD Primary Care Provider [phone] Reason for Visit * Reason Comments Medication Refill Encounter Details Date Type Department Care Team (Late st Contact Info) Description 03/28/2024 Refill Family Medicine at [facility] [address] [place] [address] Rodney Padilla MD [address] [facility] [place] [address] Social History Tobacco Use Types Packs/Day Years [...] encounter Miscellaneous Notes * Telephone Encounter - Lissy Almeida CCMA - 03/28/2024 1:37 PM EDT Prescription Renewal Request Name: Alize Gramajo : 1960 Prescription(s) Requested: Requested Prescriptions Refused Prescriptions Disp Refills clopidogreL (Plavix) 75 mg tablet [Pharmacy Med Name: CLOPIDOGREL 75 MG TABLET] 90 tablet 3 Sig: TAKE 1 TABLET BY MOUTH DAILY Refused By: LISSY ALMEIDA Reason for Refusal: Request already responded to by other means Date of Encounter last in This Dept (If need an appointment send to secretaries to schedule): Next Encounter in This Dept: 05/22/2024 Date of Last Refill (for each medication): 02/13/24 90x3 Medication category requirements (labs etc): Status of request: Refused Allergies Allergen Reactions Codeine Phosphate Nausea And Vomiting Erythromycin Base Nausea Only Azithromycin Ibuprofen Stomach upset Lisinopril cough Nsaids (Non-Steroidal Anti-Inflammatory Drug) Nausea And Vomiting [facility] 03/28/24 1:39 PM documented in this encounter Plan of Treatment Upcoming Encounters Date Type Department Care Team (Late st Contact Info) Description 05/01/2024 11:20 AM EDT Appointment Mammography/[place] [phone] Rodney Padilla MD [address] [place] [address] 05/01/2024 1:45 PM EDT Office [place] [address] Juanpablo Hernandez MD [facility] [place] [address] 05/23/2024 2:45 PM EST Clinical Support Family Medicine at [facility] [address] [place] [phone] Julia Low [facility] 01/30/2025 1:30 PM EDT Laboratory Appointment Lab at [facility] Hematology Oncology [address] [place] [address] 01/30/2025 3:[address] [place] [address] Arturo Cordero MD [facility] [address] [place] [address] 01/30/2025 4:15 PM EDT Office Visit Hematology [place] [address] Arturo Cordero MD [facility] [address] [place] [address] documented as of this encounter Visit Diagnoses Not on filedocumented in this encounter Care Teams Phlebotomy Specialist Relationship Specialty Start Date End Date Rodney Padilla MD [address] [place] [address] PCP - General 07/18/22 04/09/24 documented as of this encounter
--- OUTSIDE RECORDS SUMMARY | 2024-04-13 15:40 | XMS_ITS | Encounter Summary ---
Author Organization [facility] [place] [address] Care Team Providers Care Engineering Scientist Name Role Phone Rodney Padilla MD Primary Care Provider Encounter Details Date Type Department Care Team (Latest Contact Info) Description 02/01/2024 8:12 AM EDT - 02/01/2024 11:59 PM EDT Hospital Encounter [place] [address] Malignant melanoma of conjunctiva, left Discharge Disposition: [...] needed for Wheezing. USE WITH SPACER 11/24/2023 tretinoin (RETIN-A) 0.025 % CreamIndications:Phot oaging of [...] daily. Indications: diabetes 100 each 11 11/02/2023 nicotine (Nicoderm CQ) 21 mg/24 hr Patch [...] 11 10/24/2023 fluticasone propionate (Flonase) 50 mcg/actuation [place], Suspension SPRAY 1 SPRAY IN EACH NOSTRIL TWO TIMES A DAY 48 mL 3 09/28/2023 lamoTRIgine (LaMICtal) 150 mg tablet Take 150 mg by mouth Daily at Noon. 08/17/2023 Blood-Glucose Meter,Continuous (Dexcom G7 Rotary Shear Cutter) MiscIndications:Type 2 diabetes mellitus with hyperglycemia, without long-term current use of insulin 1 Device by [facility]Non-Drug; Combo Route) route continuous. 08/18/2023 Blood-Glucose Sensor (Dexcom G7 Sensor) DeviceIndications:Typ e 2 diabetes mellitus with hyperglycemia, without long-term current use of insulin 1 Device by [facility]Non-Drug; Combo Route) route every 10 days. 3 each 11 08/18/2023 inhalational spacing device (Hesham Aerosol [place] Enhancer) SpacerIndications:Chr onic obstructive pulmonary disease, unspecified COPD type 1 each by [facility]Non-Drug; Combo Route) route as needed. 1 each 2 06/20/2023 lamoTRIgine (LaMICtal) 25 mg tabletIndications:bip olar disorder in remission Take 50 mg by mouth nightly. Indications: bipolar disorder in remission loratadine (Claritin) 10 mg Tablet Take 1 [...] nightly. Indications: type 2 diabetes mellitus 01/30/2024 03/21/2024 Mounjaro 2.5 mg/0.5 mL Pen InjectorIndications:t ype 2 diabetes mellitus Inject 2.5 mg subcutaneously once a week. Indications: type 2 diabetes mellitus 2 mL 11 10/27/2023 03/20/2024 simvastatin (Zocor) 10 mg tabletIndications:Mix ed hyperlipidemia TAKE ONE TABLET BY MOUTH EVERY DAY 90 tablet 1 08/28/2023 02/10/2024 sucralfate (Carafate) 100 mg/mL Suspension Take 10 mLs by mouth 4 times daily. 3726 mL 3 04/05/2023 04/08/2024 clopidogreL (Plavix) 75 mg tablet Take 1 [...] 05/01/2024 11:20 AM EDT Appointment Mammography/[place] [address] Rodney Padilla MD [address] [place] [address] 05/01/2024 1:45 PM EDT Office [place] [address] Juanpablo Hernandez MD [facility] [place] [address] 05/23/2024 2:45 PM EST Clinical Support [facility] at [facility] [address] [place] [phone] Julia Low [facility] 01/30/2025 1:30 PM EDT Laboratory Appointment Lab at [facility] Hematology Oncology [address] [place] [address] 01/30/2025 3:[address] [place] [address] Arturo Cordero MD [facility] [place] [address] 01/30/2025 4:15 PM EDT Office Visit Hematology [place] [address] Arturo Cordero MD [facility] DR HEMATOLOGY AND ONCOLOGY [place], [place] [phone] documented as of this encounter Procedures Procedure [...] 8:19 AM EDT) Neutrophil % 65.9 % [facility] Neutrophil Absolute 5.25 1.70 - 6.10 x10(3)/[facility] Lymph % 24.4 % [facility] Lymphocytes Abs 1.9 0.9 - 3.2 x10(3)/[facility] Monocyte % 7.5 % [facility] Monocyte Abs 0.6 0.3 - 0.9 x10(3)/[facility] Eos % 1.3 % [facility] Eosinophils Abs 0.1 0.0 - 0.4 x10(3)/[facility] Basophil % 0.6 % [facility] Baso Absolute 0.0 0.0 - 0.1 x10(3)/[facility] Immature Gran % 0.30 % [...] - 0.04 x10(3)/mcL [facility] Blood 02/01/2024 8:19 AM EDT 02/01/2024 8:39 AM EDT Narrative Resulting Agency Comment Spec In Lab Tee Lara MD HEMATOLOGY ORD ERABLES [facility] [place] [address] * (ABNORMAL) Hemogram (02/01/2024 8:19 AM EDT) [...] RDW Standard Deviation 45.4 37.0 - 46.0 [facility] RDW coefficient of variation 14.3(H) 11.5 - 14.1 % [facility] Mean Platelet Volume 9.4 7.6 - 12.9 fL [facility] NRBC% auto 0.0 % [facility] NRBC Absolute 0.000 0.000 - 0.000 x10(3)/mc L [facility] Blood 02/01/2024 8:19 AM EDT 02/01/2024 8:39 AM EDT Narrative Resulting Agency Comment Spec In Lab Tee Lara MD HEMATOLOGY ORD ERABLES [facility] [place] [address] * Comprehensive metabolic panel (non-fasting) (02/01/2024 8:19 [...] Cordero MD CHEMISTRY ORDERABLES Performing Organization Address City/[facility]/ZIP Co de Phone Number [facility] [place] [address] * Lactate Dehydrogenase (02/01/2024 8:19 AM EDT) Lactate Dehydrogenase 195 110 - 220 unit/L [facility] Blood 02/01/2024 8:19 AM EDT 02/01/2024 8:39 AM EDT Narrative Resulting Agency Comment Spec In Lab Arturo Cordero MD CHEMISTRY ORDERABLES Performing Organization Address City/[facility] Co de Phone Number [facility] [place] [address] documented in this encounter Visit Diagnoses Diagnosis Malignant melanoma of conjunctiva, left documented in this encounter Care Teams Engineering Scientist Relationship Specialty Start Date End Date Rodney Padilla MD [address] [place] [address] PCP - General 07/18/22 04/09/24 documented as of this encounter
--- OUTSIDE RECORDS SUMMARY | 2024-04-13 15:40 | XMS_ITS | Encounter Summary ---
Author Organization [facility] [place] [address] Care Team Providers Care Cannery Tender Engineer Name Role Phone Rodney Padilla MD Primary Care Provider [phone]- [phone] Reason for Visit * Reason Onset Date Comments Medication Refill 02/10/2024 Encounter Details Date Type Department Care Team (Late st Contact Info) Description 02/10/2024 Refill Family Medicine at [facility] [address] [place] [phone] Rodney Padilla MD [address] [place] [address] Mixed hyperlipidemia Social History Tobacco Use Types [...] Drug) Nausea And Vomiting Bella Hargrove CMA 02/13/24 11:23 AM documented in this encounter Plan of Treatment Upcoming Encounters Date Type Department Care Team (Late st Contact Info) Description 05/01/2024 11:20 AM EDT Appointment Mammography/[place] [phone] Rodney Padilla MD [address] [place] [address] 05/01/2024 1:45 PM EDT Office [place] [address] Juanpablo Hernandez MD [facility] [place] [address] 05/23/2024 2:45 PM EST Clinical Support Family Medicine at [facility] [address] [place] [phone] Julia Low [facility] 01/30/2025 1:30 PM EDT Laboratory Appointment Lab at [facility] Hematology Oncology [address] [place] [address] 01/30/2025 3:[address] [place] [address] Arturo Cordero MD [facility] [place] [address] 01/30/2025 4:15 PM EDT Office Visit Hematology [place] [address] Arturo Cordero MD [facility] [place] [address] documented as of this encounter Visit Diagnoses Diagnosis Mixed hyperlipidemia documented in this encounter Care Teams Cannery Tender Engineer Relationship Specialty Start Date End Date Rodney Padilla MD [address] [place] [address] PCP - General 07/18/22 04/09/24 documented as of this encounter
--- OUTSIDE RECORDS SUMMARY | 2024-04-13 15:40 | XMS_ITS | Encounter Summary ---
[place] [address] Care Team Providers Care Limousine And Hearse Upholsterer Name Role Phone Rodney Padilla MD Primary Care Provider Reason for Referral * Diagnostic Test (Routine) - New Request Specialty Diagnoses / Procedures Referred By Gonzalez kumari Referred To Contact Radiology Diagnoses Irritable bowel syndrome, unspecified type Procedures NM Gastric Emptying Scan Rodney Padilla MD [address] [place] [address] [place] [address] Referral ID Status Reason Start Date Expiration Date Visits Requested Visits Authorized [id number] New Request Specialty Service Requested 03/20/2024 09/17/2025 1 1 Reason for Visit * Reason Comments Other Stomach and bowel tr ouble- not improving and ongoing, been to ER recently (flare up) Encounter Details Date Type Department Care Team (Late st Contact Info) Description 03/20/2024 3:30 PM EDT Office Visit Family Medicine at [facility] [address] [place] [phone] Rodney Padilla MD [address] [place], [place] [phone] Irritable bowel syndrome, unspecified type (Primary Dx); Type 2 diabetes mellitus without long-term current [...] Reading Time Taken Comments Blood Pressure 138/80 03/20/2024 3:29 PM EDT Pulse 69 03/20/2024 3:29 PM EDT Temperature - - Respiratory Rate - - Oxygen Saturation 96% 03/20/2024 3:29 PM EDT Inhaled Oxygen Concentration - - Weight - - Height 160 cm (5' 2.99) 03/20/2024 3:29 PM EDT Body Mass Index - - documented in this encounter Patient Instructions * Patient Instructions* Rodney Padilla MD - 03/20/2024 3:30 PM EDT -Take docusate 100mg daily and mirlax daily, goal is to have two bowel movements day. documented in this encounter Progress Notes * Rodney Padilla MD - 03/20/2024 3:30 PM EDT Subjective Chart review prior to visit: HPI: Alize Gramajo is a 63 y.o. female, patient who reports for evaluation for follow up on DM. Had recent visit with Amb Pharmacist, Mounjaro was increased to 5mg weekly due to improving A1c. Continues to intermittent episodes of bowel issues ranging for constipation/bloating/diarrhea which has been ongoing most of her life. Allergies Allergen Reactions Codeine Phosphate Nausea And Vomiting Erythromycin Base Nausea Only Azithromycin Ibuprofen Stomach upset Lisinopril cough Nsaids (Non-Steroidal Anti-Inflammatory Drug) Nausea And Vomiting Current Outpatient Medications on File Prior to Visit Medication Sig Dispense Refill Mounjaro 5 mg/0.5 mL Pen Injector Inject 5 mg subcutaneously once a week. Indications: type 2 diabetes mellitus 2 mL 11 dicyclomine (Bentyl) 10 mg capsule Take 10 mg by mouth 4 times daily (before meals and nightly). albuteroL 90 mcg/actuation inhaler (HFA) Inhale 2 [...] TOPICALLY ONCE DAILY 100 each 3 fluticasone hmnvlnj-drcsejtsftgf-wxlghvxeix (Trelegy Ellipta) 200-62.5-25 mcg Inhale 1 puff into the lungs daily. Rinse mouth after use 1 each 11 fluticasone propionate (Flonase) 50 mcg/actuation [place], Suspension SPRAY 1 SPRAY IN EACH NOSTRIL TWO TIMES A DAY 48 mL 3 lamoTRIgine (LaMICtal) 150 mg tablet Take 150 mg by mouth Daily at Noon. Blood-Glucose Meter,Continuous (Dexcom G7 [place]glar Alarm Inspector) Misc 1 Device by [facility].(Non- Drug; Combo Route) route continuous. Blood-Glucose Sensor (Dexcom G7 Sensor) Device 1 Device by [facility].(Non-Drug; Combo Route) route every10 days. 3 each 11 inhalational spacing device (Hesham Aerosol [place] Enhancer) Spacer 1 each by [facility].(Non-Drug; Combo Route) route as needed. 1 each [...] 2 times daily. FreeStyle Lite Meter Kit traZODone (Desyrel) 100 mg Tablet Take 1 tablet by mouth nightly. 90 tablet 3 aspirin EC 81 mg Tablet, Delayed Release (E.C.) Take 81 mg by mouth daily. Miscellaneous Medical Supply Misc by [facility].(Non-Drug; Combo Route) route. Lantus Solostar U-100 Insulin 100 unit/mL (3 [...] taking: Reported on 03/20/2024) 100 each 11 [DISCONTINUED] Mounjaro 2.5 mg/0.5 mL Pen Injector Inject 2.5 mg subcutaneously once a week. Indications: type 2 diabetes mellitus 2 mL 11 nicotine (Nicoderm CQ) 21 [...] not taking: Reported on 03/20/2024)100 each 3 freestyle lite strips USE TO TEST THREE TIMES A DAY (Patient not taking: Reported on 01/01/2024) 300strip 3 FreeStyle Lancets 28 gauge Misc 1 each by Other route 3 times daily. Indications: diabetes (Patientnot taking: Reported on 01/01/2024) 100 each 11 No current facility-administered medications on file prior to visit. Objective BP 138/80 Pulse 69 Ht 160 cm (5' 2.99) SpO2 96% BMI 42.52 kg/m?? General: NAD HEENT: Normocephalic, normal appearing conjunctiva Pulm: Talking in full sentences, no audible wheezing or grunting Card: Appears clinically well perfused MSK: Moving extremities at random Assessment/Plan There are no diagnoses linked to this encounter. 1) DM2 -Will continue with medications as prescribed. 2) IBS -Will aim for two bowel movements daily, will take docusate 50-100mg daily, and mirilax daily. -Gastric emptying, study Total time on date of encounter was 36 minutes including the any of the following activities as necessary for completion of the visit: Preparing to see pt, review of tests Obtaining and/or reviewing separately obtained history (eg, outside records, caregiver) Counseling and educating the patient/family/caregiver Referring and communicating with other health healthcare customer service Documenting clinical information in the electronic or other health record Independently interpreting results Care coordination documented in this encounter Plan of Treatment Upcoming Encounters Date Type Department Care Team (Late st Contact Info) Description 05/01/2024 11:20 AM EDT Appointment Mammography/[place] [phone] Rodney Padilla MD [address] [place] [address] 05/01/2024 1:45 PM EDT Office [place] [address] Juanpablo Hernandez MD [facility] [place] [address] 05/23/2024 2:45 PM EST Clinical Support Family Medicine at [facility] [address] [place] [address] Julia Low [facility] 01/30/2025 1:30 PM EDT Laboratory Appointment Lab at [facility] Hematology Oncology [address] [place] [address] 01/30/2025 3:[address] [place] [address] Arturo Cordero MD [facility] [place] [address] 01/30/2025 4:15 PM EDT Office Visit Hematology [place] [address] Arturo Cordero MD [facility] DR [place] [address] Scheduled Orders Name Type Priority Associated Diagnoses Orde r Schedule NM Gastric Emptying Scan Imaging Routine Irritable bowel syndrome, unspecified type Expected: 03/20/2024, Expires: 03/20/2025 documented as of this encounter Visit Diagnoses Diagnosis Irritable bowel syndrome, unspecified type- Primary Type 2 diabetes mellitus without long-term current use of insulin documented in this encounter Care Teams Limousine And Hearse Upholsterer Relationship Specialty Start Date End Date Rodney Padilla MD [address] [place] [address] PCP - General 07/18/22 04/09/24 documented as of this encounter
--- OUTSIDE RECORDS SUMMARY | 2024-04-13 15:40 | XMS_ITS | Encounter Summary ---
Author Organization [facility] [place] [address] Care Team Providers Care Concession Manager Name Role Phone Rodney Padilla MD Primary Care Provider [phone]- [phone] Reason for Visit * Reason Comments Medication Refill Encounter Details Date Type Department Care Team (Late st Contact Info) Description 04/08/2024 Refill Family Medicine at [facility] [address] [place] [address] Rodney Padilla MD [address] [facility] [place] [address] Social History Tobacco Use Types Packs/Day Years [...] Telephone Encounter - Shelbie Cruz CMA - 04/09/2024 12:52 PM EDT Spoke to Yashira at [employer] who states that the patient does have refills for the Plavix documented in this encounter Plan of Treatment Upcoming Encounters Date Type Department Care Team (Late st Contact Info) Description 05/01/2024 11:20 AM EDT Appointment Mammography/[place] [address] Rodney Padilla MD [address] [place] [address] 05/01/2024 1:45 PM EDT Office [place] [address] Juanpablo Hernandez MD [facility] [place] [address] 05/23/2024 2:45 PM EST Clinical Support Family Medicine at [facility] [address] [place] [phone] Julia Low RPH 01/30/2025 1:30 PM EDT Laboratory Appointment Lab at [facility] Hematology Oncology [address] [place] [address] 01/30/2025 3:[address] [place] [address] Arturo Cordero MD [facility] [place] [address] 01/30/2025 4:15 PM EDT Office Visit Hematology [place] [address] Arturo Cordero MD [facility] [place] [address] documented as of this encounter Visit Diagnoses Not on filedocumented in this encounter Care Teams Concession Manager Relationship Specialty Start Date End Date Rodney Padilla MD [address] [place] [address] PCP - General 07/18/22 04/09/24 documented as of this encounter
--- OUTSIDE RECORDS SUMMARY | 2024-04-13 15:40 | XMS_ITS | Encounter Summary ---
Author Organization [facility] [place] [address] Care Team Providers Care Medical Laboratory Manager Name Role Phone Rodney Padilla MD Primary Care Provider Encounter Details Date Type Department Care Team (Late st Contact Info) Description 03/21/2024 Telephone Family Medicine at [address] [place] [phone] [place], [facility] Social History Tobacco Use Types Packs/Day Years [...] encounter Miscellaneous Notes * Telephone Encounter - Monique Cheung - 03/21/2024 10:31 AM EDT Left a vm to patient regarding order for NM gastric scan, gave department number. documented in this encounter Plan of Treatment Upcoming Encounters Date Type Department Care Team (Late st Contact Info) Description 05/01/2024 11:20 AM EDT Appointment Mammography/[place] [phone] Rodney Padilla MD [address] [place] [address] 05/01/2024 1:45 PM EDT Office [place] [address] Juanpablo Hernandez MD [facility] [place] [address] 05/23/2024 2:45 PM EST Clinical Support Family Medicine at [facility] [address] [place] [phone] Julia Low, [facility] 01/30/2025 1:30 PM EDT Laboratory Appointment Lab at [facility] Hematology Oncology [address] [place] [address] 01/30/2025 3:[address] [place] [address] Arturo Cordero MD [facility] [place] [address] 01/30/2025 4:15 PM EDT Office Visit Hematology [place] [address] Arturo Cordero MD [facility] [place] [address] documented as of this encounter Visit Diagnoses Not on filedocumented in this encounter Care Teams Medical Laboratory Manager Relationship Specialty Start Date End Date Rodney Padilla MD [address] [place] [address] PCP - General 07/18/22 04/09/24 documented as of this encounter
--- OUTSIDE RECORDS SUMMARY | 2024-04-13 15:40 | XMS_ITS | Encounter Summary ---
Author Organization [facility] Address [address] [place] [address] Care Team Providers Care Slot Supervisor Name Role Phone Unavailable Primary Care Provider Unavailabl e Encounter Details Date Type Department Care Team (Late st Contact Info) Description 12/01/2005 Results Only [facility] conversion [address] [place] [address] Santos Shay MD [address] [facility] [address] [place] [address] [place] [phone] Social History Tobacco Use Types Packs/Day Years [...] ? ALIZE MANJARREZ ? Accession #: ? [id number] ? : ? 1960 (Age: 45) ??F [...] entirely submitted as (A1) and (A2). ??(Gwyn Oliveros/[facility] ?? End of Report MAGDIEL VARGAS 12/01/2005 12/01/2005 15: 25 EDT Santos Shay MD PATHOLOGY ORDERABLES MAGDIEL VARGAS [address] [place] [address] documented in this encounter Visit Diagnoses Not on filedocumented in this encounter
--- OUTSIDE RECORDS SUMMARY | 2024-04-13 15:40 | XMS_ITS | Encounter Summary ---
Author Organization [facility] Address [facility] [place] [address] Care Team Providers Care Metal Fabricator Welder Name Role Phone Rodney Padilla MD Primary Care Provider [phone]- [phone] Encounter Details Date Type Department Care Team [...] 05/01/2024 11:20 AM EDT Appointment Mammography/[place] [phone] Rodney Padilla MD [address] [place] [address] 05/01/2024 1:45 PM EDT Office [place] [address] Juanpablo Hernandez MD [facility] [place] [address] 05/23/2024 2:45 PM EST Clinical Support Family Medicine at [facility] [address] [place] [phone] Julia Low [facility] 01/30/2025 1:30 PM EDT Laboratory Appointment Lab at [facility] [place]ematology Oncology [address] [place] [address] 01/30/2025 3:[address] [place] [address] Arturo Cordero MD [facility] DR HEMATOLOGY [place] [address] 01/30/2025 4:15 PM EDT Office Visit Hematology [place] [address] Arturo Cordero MD [facility] DR HEMATOLOGY [place] [address] documented as of this encounter Visit Diagnoses Not on filedocumented in this encounter Care Teams Metal Fabricator Welder Relationship Specialty Start Date End Date Rodney Padilla MD [address] [place] [address] PCP - General 07/18/22 04/09/24 documented as of this encounter
--- OUTSIDE RECORDS SUMMARY | 2024-04-13 15:40 | XMS_ITS | Clinical Summary ---
Author Organization [facility] Address [facility] [place] [address] Care Team Providers Care Hat Cleaner Name Role Phone Daryn Garrett MD Primary Care Provider [phone] Allergies Active Allergy Reactions Criticality Noted Date [...] mouth daily. 90 tablet 3 03/22/2023 Active inhalational spacing device (Hesham Aerosol Toole Enhancer) SpacerIndications:C hronic obstructive pulmonary disease, unspecified COPD type 1 each by [facility]Non-Drug; Combo Route) route as needed. 1 each 2 06/20/2023 Active lamoTRIgine (LaMICtal) 25 mg tabletIndications:b ipolar disorder in remission Take 50 mg by mouth nightly. Indications: bipolar disorder in remission Active Blood-Glucose Meter,Continuous (Dexcom G7 Bindery Worker) MiscIndications:Typ e 2 diabetes mellitus with hyperglycemia, without long-term current use of insulin 1 Device by [facility]Non-Drug; Combo Route) route continuous. 08/18/2023 Active Blood-Glucose Sensor (Dexcom G7 Sensor) DeviceIndications:T ype 2 diabetes mellitus with hyperglycemia, without long-term current use of insulin 1 Device by [facility].(Non-Drug; Combo Route) route every 10 days. 3 each 11 08/18/2023 Active lamoTRIgine (LaMICtal) 150 mg tablet Take 150 mg by mouth Daily at Noon. 08/17/2023 Active fluticasone propionate (Flonase) 50 mcg/actuation [place], Suspension SPRAY 1 SPRAY IN EACH NOSTRIL TWO TIMES A DAY 48 mL 3 09/28/2023 Active nicotine (Nicoderm CQ) 21 mg/24 hr Patch 24 hrIndications:Nicot ine dependence, cigarettes, uncomplicated Change 1 patch on the skin daily. See package instructions 28 patch 1 10/24/2023 Active Additional Information Patient not taking.Reported on 03/20/2024 nicotine polacrilex (Nicorette) 4 mg gumIndications:Federico yuly dependence, cigarettes, uncomplicated Take 1 each by mouth every 2 hours as needed for Smoking cessation. Nothing but water 15 min before or during use. 100 each 3 10/24/2023 Active Additional Information Patient not taking.Reported on 03/20/2024 fluticasone furoate-umeclidiniu m-vilanterol (Trelegy Ellipta) 200-62.5-25 mcgIndications:Psych Therapist lorena obstructive pulmonary disease, unspecified COPD type Inhale 1 puff into the lungs daily. Rinse mouth after use 1 each 10/24/2023 Active BD Alcohol Swabs Pads, MedicatedIndication s:Type 2 diabetes mellitus with hyperglycemia, without long-term current use of insulin USE TOPICALLY ONCE DAILY 100 each 11/02/2023 Active insulin needles, disposable, 32 gauge x 5/32 NeedleIndications:d iabetes mellitus Inject 1 each subcutaneously daily. Indications: diabetes 100 each 11/02/2023 Active Additional Information Patient not taking.Reported on 03/20/2024 tretinoin (RETIN-A) 0.025 % CreamIndications:Ph otoaging of skin Apply a pea size amount to the face nightly. As it can be irritating, start 2-3 times per week and slowly increase to nightly use. Can also mix with a bland moisturizer to help with irritation. 45 g 11/29/2023 Active Additional Information Patient not taking.Reported on 03/20/2024 metFORMIN XR (Glucophage XR) 500 mg ER 24 hr tablet Take 2 tablets by mouth 2 times daily (with meals). 360 tablet 3 02/13/2024 Active metoprolol succinate XL (Toprol-XL) 25 mg ER 24 hr tablet Take 1 tablet by mouth daily. 90 tablet 3 02/13/2024 Active clopidogreL (Plavix) 75 mg tablet Take 1 tablet by mouth daily. 90 tablet 3 02/13/2024 Active simvastatin (Zocor) 10 mg tabletIndications:M ixed hyperlipidemia Take 1 tablet by mouth daily. 90 tablet 3 02/13/2024 Active amLODIPine (Norvasc) 5 mg tabletIndications:E ssential hypertension Take 1 tablet by mouth daily. 90 tablet 3 02/20/2024 Active pantoprazole EC (Protonix) [address] tablet Take 1 tablet by mouth daily. 90 tablet 02/20/2024 Active losartan (Cozaar) 100 mg tablet Take 1 tablet by mouth daily. 90 tablet 02/20/2024 Active albuteroL 90 mcg/actuation inhaler (HFA) Inhale 2 puffs into the lungs every 4 hours as needed for Wheezing. USE WITH SPACER 11/24/2023 Active Mounjaro 5 mg/0.5 mL Pen InjectorIndications :type 2 diabetes mellitus Inject 5 mg subcutaneously once a week. Indications: type 2 diabetes mellitus 2 mL 11 03/20/2024 Active dicyclomine (Bentyl) 10 mg capsule Take 10 mg by mouth 4 times daily (before meals and nightly). Active Miscellaneous Medical Supply Misc by Mis.(Non-Drug; Combo Route) route. Active docusate sodium (Colace) 100 mg capsuleIndications: Irritable bowel syndrome, unspecified type Take 1 capsule by mouth daily. 90 capsule 3 03/20/2024 Active polyethylene glycoL (Miralax) 17 gram oral powder packetIndications:I rritable bowel syndrome, unspecified type Take 17 g by mouth daily. 90 each 3 03/20/2024 Active sucralfate (Carafate) 100 mg/mL Suspension Take 10 mLs by mouth 4 times daily. 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 Coronary artery disease invo lving [place] coronary artery of [place] heart with angina pectoris 10/09/2007 Overview (06/27/2019): [...] Encounters Date Type Department Care Team Description 04/08/2024 Refill Family Medicine at [facility] [address] [place] [address] Rodney Padilla MD Essential hypertension 04/08/2024 Refill Family Medicine at [facility] [address] [place] [address] Rodney Padilla MD 03/28/2024 Refill Family Medicine at [facility] [address] [place] [address] Rodney Padilla MD 03/22/2024 Refill Family Medicine at [facility] [address] [place] [address] Rodney Padilla MD 03/21/2024 Telephone Family Medicine at [facility] [address] [place] [phone] Dieterich Monique 03/20/2024 3:30 PM EDT Office Visit Family Medicine at [facility] [address] [place] [address] Rodney Padilla MD Irritable bowel syndrome, unspecified type (Primary Dx); Type 2 diabetes mellitus without long-term current use of insulin 03/20/2024 2:00 PM EDT TH Visit (TeleHealth) Family Medicine at [facility] [address] [place] [address] Julia Low [facility] Type 2 diabetes mellitus without long-term current use of insulin (Primary Dx) 03/20/2024 11:00 AM EDT Laboratory Appointment Lab at [facility] [address] [place] [address] Type 2 diabetes mellitus without long-term current use of insulin 03/19/2024 Travel 03/14/2024 Travel 03/13/2024 Travel 02/28/2024 Notes Only Sleep Center at [facility] [address] [place] [address] Barbra Martínez, RT 02/22/2024 Travel 02/18/2024 Refill Family Medicine at [facility] [address] [place] [address] Rodney Padilla MD Essential hypertension 02/10/2024 Refill Family Medicine at [facility] [address] [place] [address] Rodney Padilla MD Mixed hyperlipidemia 02/10/2024 Refill Family Medicine at [facility] [address] [place] [address] Rodney Padilla MD Mixed hyperlipidemia 02/10/2024 Refill Family Medicine at [facility] [address] [place] [address] Luis E Narayan MD 02/01/2024 11:15 AM EDT Office Visit Hematology [place] [address] Arturo Cordero MD Neilan, Kathleen M, PHYSICAL THERAPY PROFESSOR Malignant melanoma of conjunctiva, left (Primary Dx); Lung nodule; Renal cell cancer, left 02/01/2024 8:12 AM EDT - 02/01/2024 11:59 PM EDT Hospital Encounter Hematology [place] [phone] Malignant melanoma of conjunctiva, left Discharge Disposition: Home 02/01/2024 8:04 AM EDT - 02/01/2024 8:11 AM EDT Hospital [place] [address] Arturo Cordero MD Malignant melanoma of conjunctiva, left Discharge Disposition: Home 02/01/2024 Travel 01/29/2024 Travel from Last 3 Months Immunizations Name Administration Dates Next Due Covid-19 Bivalent (Pfizer Co mirnaty) 12yrs+ ([id number]) 06/07/2022 Influenza Quadrivalent with Preservative 05/06/2020 Influenza [...] Pulse 69 03/20/2024 3:29 PM EDT Temperature 36.2 ??C (97.2 ??F) 02/01/2024 11:19 AM E DT Respiratory Rate 16 02/01/2024 11:19 AM EDT Oxygen Saturation 96% 03/20/2024 3:29 PM EDT Inhaled Oxygen Concentration - - Weight 108.9 kg (240 lb) 02/27/2024 3:17 PM EDT Height 160 cm (5' 2.99) 03/20/2024 3:29 PM EDT Body Mass Index 42.51 02/27/2024 3:17 PM EDT Plan of Treatment Upcoming Encounters Date Type Department Care Team (Late st Contact Info) Description 05/01/2024 11:20 AM EDT Appointment Mammography/[place] [phone] Rodney Padilla MD [address] [place] [address] 05/01/2024 1:45 PM EDT Office Visit [place] [phone] Juanpablo Hernandez MD [facility] [place] [address] 05/23/2024 2:45 PM EST Clinical Support Family Medicine at [facility] [address] [place] [address] Julia Low, [facility] 01/30/2025 1:30 PM EDT Laboratory Appointment Lab at [facility] Hematology Oncology [address] [place] [address] 01/30/2025 3:[address] [place] [address] Arturo Cordero MD [facility] [address] HEMATOLOGY [place] [address] 01/30/2025 4:15 PM EDT Office Visit Hematology [place] [phone] Arturo Cordero MD [facility] [address] HEMATOLOGY [place] [address] Health Maintenance Due Date Last Done Comments CT Colonography 1959 FIT DNA 1959 FIT 1960 Sigmoidoscopy (10 year) with FIT yearly 1960 Sigmoidoscopy 1960 Zoster vaccine (1 of 2) 11/11/2009 Advance Directive 11/11/2014 HPV test 01/07/2023 01/07/2018 (See prior EHR) PAP Smear 01/07/2023 01/07/2018 (See prior EHR) Covid-19 Vaccine ( season) 2024 06/07/2022 Influenza (Flu) vaccine (1 of 1 - Influenza standard series) 03/10/2024 06/20/2023, 06/07/2022, 05/31/2021, Additional history exists DM Opthalmology Exam 07/26/2024 07/26/2023, 10/05/2022, 11/17/2021, Additional history exists DM Hemoglobin A1c 6 month 09/17/20242023, 12/20/2023, 09/19/2023, Additional history exists Pneumococcal Vaccine: At-Risk 5-64yrs (3 of 3 - PPSV23 or PCV20) 11/11/2024 04/09/2019, 05/10/2007 Breast Cancer screening 11/30/2024 12/01/19 23, 07/27/2021, 07/22/2020, Additional history exists DM Urine Microalbumin yearly 12/19/2024 12/20/2023, 06/20/2023, 06/21/2019 DM Creatinine yearly 01/31/2025 02/01/2024, 08/03/2023, 06/20/2023, Additional history exists Tetanus/Diphtheria/Pertussi s Vaccines (4 - Td or Tdap) 04/09/2029 04/09/2019, 06/24/2011, 06/24/2011, Additional history exists Colonoscopy 04/18/2031 04/18/2021 (Outs ivelisse per patient (enter details in comments)), 04/18/2021 (Outside per patient (enter details in comments)) Colorectal Cancer Screening 04/18/2031 Breast Cancer Share Decision Needed 01/30/2110 Postponed from 1999 (Provider recommendation) HIV screen Completed 06/21/2019 Hepatitis C Screening Completed 06/21/2019 Medical Devices Implanted Type Area Collector Of Port Device Identifier Shelf Expiration Date Model / Serial / Lot Cryopreserved Human Amniotic Membrane Implanted:Qty: 1 on 05/14/2020 by Juanpablo Hernandez MD at [facility] Left: Eye 03/27/2022 [id number] / [id number] / Procedures Procedure Name Priority Date/Time Associated Diagnosis Comments HEMOGLOBIN A1C Routine 03/20/2024 11:05 AM EDT Type 2 diabetes mellitus without long-term current use of insulin ECG SCAN 03/04/2024 12:[address] NECK SOFT TISSUE W CONTRAST Routine [...] Recently Relevant to Health Maintenance Results * (ABNORMAL) Hemoglobin A1c (03/20/2024 11:05 AM EDT) Hemoglobin A1c 7.7(H) 4.3 - 5.6 % 03/20/2024 2:06 PM EDT [facility] Comment: Per ADA guidelines, without clear symptoms of hyperglycemia or a random plasma glucose >199 mg/dL, a single abnormal A1c measurement cannot be used to diagnose diabetes mellitus. The diagnosis must be confirmed by either 1) a concurrent abnormal fasting plasma glucose or impaired response to oral glucose tolerance testing, or 2) an additional abnormal A1c, impaired fasting plasma glucose, or impaired response to oral glucose tolerance testing on a different day. A1c results obtained on patients with altered red blood cell turnover may not be automotive sales representative of glycemic control. Reference Interval: 4.3 - 5.6% 5.7 - 6.4%: Consistent with prediabetes >=6.5%: Consistent with diagnosis of diabetes mellitus Estimated Average Glucose 174 mg/dL 03/20/2024 2:06 PM EDT [facility] Blood VENOUS BLOOD SPECIMEN / Unknown Venipuncture / Unknown 03/20/2024 11:05 AM EDT 03/20/2024 11:05 AM EDT Rodney Padilla MD CHEMISTRY ORDERABLE S Performing Organization Address City/State/[facility] Co de Phone Number [facility] [place] [address] * Scan Doc: ECG (03/04/2024 12:00 AM EDT) Narrative 03/04/2024 12:00 AM EDT Ordered by an unspecified provider. Scanning Provider MEDIA MGR SCAN EXT O RDR/RSLT * CT Chest Abdomen Pelvis w Contrast (Generic) (02/01/2024 10:24 AM EDT) Pathologist [employer] WORKSTATION ID [id number] DH RAD Anatomical Region Laterality Modality Abdomen, Pelvis [...] have questions please contact the health medicare nurse that requested your imaging first. ? [...] who have questions please contactthe health medicare nurse that requested your imaging first. Arturo Cordero MD IMG CT ORDERABLES * CT Neck Soft Tissue w Contrast (Generic) (02/01/2024 10:24 AM EDT) WORKSTATION ID [id number] RAD Anatomical Region Laterality Modality Neck, Head [...] have questions please contact the health medicare nurse that requested your imaging first. ? Electronically signed by: HIMANSHU Vega [facility] ([phone]), at 02/02/2024 4:32 PM Narrative 02/02/2024 4:32 [...] who have questions please contactthe health medicare nurse that requested your imaging first. Arturo Cordero MD IMG CT ORDERABLES * (ABNORMAL) Hemogram (02/01/2024 8:19 AM EDT) White Blood Cell 8.0 4.0 - 9.5 x10(3)/mc L [facility] Red Blood Cell 4.47 4.00 - 5.21 x10(6)/mc L [facility] Hemoglobin 13.1 11.7 - 15.5 g/dL [facility] Hematocrit 39.4 35.7 - 45.8 % [facility] Mean Cell Volume 88.1 82.6 - 94.4 fL [facility] Mean Cell Hemoglobin 29.3 27.1 - 32.0 pg [facility] Mean Cell Hemoglobin Concentration 33.2 31.7 - 35.0 g/dL [facility] Platelet 371(H) 145 - 357 x10(3)/mc L [facility] RDW Standard Deviation 45.4 37.0 - 46.0 fL [facility] RDW coefficient of variation 14.3(H) 11.5 - 14.1 % [facility] Mean Platelet Volume 9.4 7.6 - 12.9 fL [facility] NRBC% auto 0.0 % [facility] NRBC Absolute 0.000 0.000 - 0.000 x10(3)/[facility] Blood 02/01/2024 8:19 AM EDT 02/01/2024 8:39 AM EDT Narrative Resulting Agency Comment Spec In Lab Tee Lara MD HEMATOLOGY ORD ERABLES Performing Organization Address City/State/[facility] Co de Phone Number [facility] [place] [address] * Differential, Automated (02/01/2024 8:19 AM EDT) Neutrophil % 65.9 % [facility] Neutrophil Absolute 5.25 1.70 - 6.10 x10(3)/[facility] Lymph % 24.4 % [facility] Lymphocytes Abs 1.9 0.9 - 3.2 x10(3)/[facility] Monocyte % 7.5 % [facility] Monocyte Abs 0.6 0.3 - 0.9 x10(3)/[facility] Eos % 1.3 % [facility] Eosinophils Abs 0.1 0.0 - 0.4 x10(3)/[facility] Basophil % 0.6 % [facility] Baso Absolute 0.0 0.0 - 0.1 x10(3)/[facility] Immature Gran % 0.30 % [facility] Comment: Immature granulocytes(IG's)percentage and absolute count will include metamyelocytes, myelocytes, and promyelocytes. Blood smears from CBCs yielding IG's will be scanned manually for concordance. If this scan disagrees with the automated IG or if promyelocytes are noted, a manual differential will be performed. Immature Gran Absolute 0.02 0.00 - 0.04 x10(3)/mcL [facility] Blood 02/01/2024 8:19 AM EDT 02/01/2024 8:39 AM EDT Narrative Resulting Agency Comment Spec In Lab Tee Lara MD HEMATOLOGY ORD ERABLES Performing Organization Address [facility]/ZIP Co de Phone Number [facility] [place] [address] * Lactate Dehydrogenase (02/01/2024 8:19 AM EDT) Lactate Dehydrogenase 195 110 - 220 unit/L [facility] Blood 02/01/2024 8:19 AM EDT 02/01/2024 8:39 AM EDT Narrative Resulting Agency Comment Spec In Lab Arturo Cordero MD CHEMISTRY ORDERABLES Performing Organization Address [facility] Co de Phone Number [facility] [place] [address] * Comprehensive metabolic panel (non-fasting) (02/01/2024 8:19 AM EDT) Glucose 162 65 - 199 mg/dL [facility] Comment:Diabetes: >=200 mg/d L plus symptoms Blood Urea Nitrogen 14 8 - 18 mg/dL [facility] Creatinine 0.90 0.70 - 1.20 mg/dL [facility] Sodium 140 135 - 145 mmol/L [facility] Potassium 4.7 3.5 - 5.0 mmol/L [facility] [...] [facility] Protein, Total 6.8 6.1 - 8.0 g/dL [facility] Albumin 4.2 3.2 - 5.2 g/dL [facility] Aspartate Aminotransferase 21 0 - 30 unit/L [facility] Alanine Aminotransferase 28 0 - 30 unit/L [facility] Alkaline Phosphatase 92 35 - 105 unit/L [facility] Bilirubin, Total 0.3 0.2 - 1.3 mg/dL [facility] Est Glomerular Filtration Rate 71 >=60 mL/min/1. 73 m?? [facility] [...] CHEMISTRY ORDERABLES [facility] [place] [address] * U Albumin/Cre Ratio (12/20/2023 2:28 PM EDT) Albumin / Creatinin Ratio, Urine Not Calculated 0 - 29 mcg/mg Cr [facility] Comment: Reference Ranges: <30 mcg/mg: [...] 2, 357? 362 Albumin, Urine <3.0 mg/L [facility] Creatinine, Urine 75 mg/dL [facility] Urine 12/20/2023 2:28 PM EDT 12/20/2023 4:11 PM EDT Narrative Resulting Agency Comment Spec In Lab Rodney Padilla MD URINE ORDERABLES [facility] [place] [address] * Mammo Screening Cad and Jose Guadalupe [...] PM EST) Hepatitis C Antibody Negative Negative [facility] Blood specimen (specimen) 06/21/2019 2:09 PM EST 06/21/2019 6:01 PM EST Narrative Resulting Agency Comment Spec In Lab Luis E Narayan MD CHEMISTRY ORDERABLE S [facility] [place] [address] * HIV Screen, 4th Generation ([facility]/CGP/APD) (06/21/2019 2:09 PM EST) HIV Ab/Ag Screen Negative Negative [facility] Comment: This 4th Generation HIV [...] ORDERABLE S [facility] [place] [address] from Last 3 Months or Most Recently [...] capacity to make decision: Yes Care Teams Hat Cleaner Relationship Specialty Start Date End Date Daryn Garrett MD [facility] [address] [facility] [place] [address] PCP - General 04/10/24
--- OUTSIDE RECORDS SUMMARY | 2024-04-13 15:40 | XMS_ITS | Encounter Summary ---
Author Organization [facility] [place] [address] Care Team Providers Care Titrator Name Role Phone Rodney Padilla MD Primary Care Provider [phone] Reason for Visit * Reason Comments Medication Refill Encounter Details Date Type Department Care Team (Late st Contact Info) Description 03/22/2024 Refill Family Medicine at [facility] [address] [place] [address] Rodney Padilla MD [address] [facility] [place] [address] Social History Tobacco Use Types Packs/Day Years [...] encounter Miscellaneous Notes * Telephone Encounter - Maryana Aguiar CCMA - 03/23/2024 9:14 PM EDT Patient has 3 Refills on this prescription. Please direct patient to call their pharmacy, [facility] for a refill. documented in this encounter Plan of Treatment Upcoming Encounters Date Type Department Care Team (Late st Contact Info) Description 05/01/2024 11:20 AM EDT Appointment Mammography/[place] [address] Rodney Padilla MD [address] [facility] [place], [place] [id number] 05/01/2024 1:45 PM EDT Office [place] [phone] Juanpablo Hernandez MD [facility] [address] 05/23/2024 2:45 PM EST Clinical Support Family Medicine at [facility] [address] [place] [address] Julia Low [facility] 01/30/2025 1:30 PM EDT Laboratory Appointment Lab at [facility] Hematology Oncology [address] [place] [address] 01/30/2025 3:[address] [place] [address] Arturo Cordero MD [facility] [place] [address] 01/30/2025 4:15 PM EDT Office Visit Hematology [place] [address] Arturo Cordero MD [facility] [place] [address] documented as of this encounter Visit Diagnoses Not on filedocumented in this encounter Care Teams Titrator Relationship Specialty Start Date End Date Rodney Padilla MD [address] [place] [address] PCP - General 07/18/22 04/09/24 documented as of this encounter
--- OUTSIDE RECORDS SUMMARY | 2024-04-13 15:40 | XMS_ITS | Encounter Summary ---
Author Organization [facility] Address [address] [place] [address] Care Team Providers Care Assistant Commissioner Name Role Phone Unavailable Primary Care Provider Unavailabl e Encounter Details Date Type Department Care Team (Late st Contact Info) Description 09/15/2008 Before PRISM Converted Visit (Maple) [facility] Cardiovascular Unit [address] [place] [address] Puja Noland MD [address] [place] [address] Social History Tobacco Use Types [...] ? ALIZE MANJARREZ ? Accession #: ? [id number] ? : ? 1960 (Age: 47) ??F [...] low grade squamous intraepithelial lesion is favored. ??Chemical Pumper sections ?? were reviewed at the intradepartmental [...] Noland MD PATHOLOGY ORDERABLES MAGDI[facility] VARGAS [address] [place] [address] documented in this encounter Visit Diagnoses Not on filedocumented in this encounter
--- OUTSIDE RECORDS SUMMARY | 2024-04-13 15:40 | XMS_ITS | Encounter Summary ---
Author Organization [facility] Address [facility] [place] [address] Care Team Providers Care Body Shop Supervisor Name Role Phone Rodney Padilla MD Primary Care Provider [phone] Encounter Details Date Type Department Care Team [...] 05/01/2024 11:20 AM EDT Appointment Mammography/[place] [address] Rodney Padilla MD [address] [place] [place] [address] 05/01/2024 1:45 PM EDT Office [place] [address] Juanpablo Hernandez MD [facility] [place] [address] 05/23/2024 2:45 PM EST Clinical Support Family Medicine at [facility] [address] [place] [address] Julia Low [facility] 01/30/2025 1:30 PM EDT Laboratory Appointment Lab at [facility] Hematology Oncology [address] [place] [address] 01/30/2025 3:[address] [place] [address] Arturo Cordero MD [facility] DR HEMATOLOGY [place] [address] 01/30/2025 4:15 PM EDT Office Visit Hematology [place] [address] Arturo Cordero MD [facility] DR HEMATOLOGY [place] [address] documented as of this encounter Visit Diagnoses Not on filedocumented in this encounter Care Teams Body Shop Supervisor Relationship Specialty Start Date End Date Rodney Padilla MD [address] [place] [address] PCP - General 07/18/22 04/09/24 documented as of this encounter
--- OUTSIDE RECORDS SUMMARY | 2024-04-13 15:40 | XMS_ITS | Encounter Summary ---
Author Organization [facility] [place] [address] Care Team Providers Care Refrigerating Oiler Name Role Phone Rodney Padilla MD Primary Care Provider Encounter Details Date Type Department Care Team (Latest Contact Info) Description 03/20/2024 11:00 AM EDT Laboratory Appointment Lab at [facility] [address] [place] [address] Type 2 diabetes mellitus without long-term current [...] 05/01/2024 11:20 AM EDT Appointment Mammography/[place] [address] Rodney Padilla MD [address] [place] [place] [address] 05/01/2024 1:45 PM EDT Office [place] [address] Juanpablo Hernandez MD [facility] [place] [address] 05/23/2024 2:45 PM EST Clinical Support Family Medicine at [facility] [address] [place] [address] Julia Low, [facility] 01/30/2025 1:30 PM EDT Laboratory Appointment Lab at [facility] Hematology Oncology [address] [place] [address] 01/30/2025 3:[address] [place] [address] Arturo Cordero MD [facility] [place] [address] 01/30/2025 4:15 PM EDT Office Visit H[place]ology [place] [address] Arturo Cordero MD [facility] [place] [address] documented as of this encounter Procedures Procedure Name Priority Date/Time Associated Diagnosis Comments HEMOGLOBIN A1C Routine 03/20/2024 11:05 AM EDT Type 2 diabetes mellitus without long-term current use of insulin documented in this encounter Results * (ABNORMAL) Hemoglobin A1c (03/20/2024 11:05 AM EDT) Hemoglobin A1c 7.7(H) 4.3 - 5.6 % 03/20/2024 2:06 PM EDT [facility] Comment: Per ADA guidelines, without [...] red blood cell turnover may not be shipping services sales representative of glycemic control. Reference Interval: 4.3 - 5.6% 5.7 - 6.4%: Consistent with prediabetes >=6.5%: Consistent with diagnosis of diabetes mellitus Estimated Average Glucose 174 mg/dL 03/20/2024 2:06 PM EDT [facility] Blood VENOUS BLOOD SPECIMEN / Unknown Venipuncture / Unknown 03/20/2024 11:05 AM EDT 03/20/2024 11:05 AM EDT Rodney J Randy [place] [address] documented in this encounter Visit Diagnoses Diagnosis Type 2 diabetes mellitus without long-term current use of insulin documented in this encounter Care Teams Refrigerating Oiler Relationship Specialty Start Date End Date Rodney Padilla MD [address] [place] [place] [address] PCP - General 07/18/22 04/09/24 documented as of this encounter
--- OUTSIDE RECORDS SUMMARY | 2024-04-13 15:40 | XMS_ITS | Encounter Summary ---
Author Organization [facility] Address [address] [place] [address] Care Team Providers Care Restaurant Kitchen And Service Manager Name Role Phone Brenda Canchola MD Primary Care Provider [phone] Encounter Details Date Type Department Care Team (Late st Contact Info) Description 08/04/2010 Results Only Imaging [facility] Rheumatology - [facility], [address] [facility] [address] [place] [address] Symone Hayden MD [address] [facility], [facility] [address] [place] [address] Social History Tobacco Use Types [...] hips dated Aug 04, 2010. Clinical history: 715.91-[id number]-[id number]. bilateral hand pain and swelling. Bilateral hip [...] hips dated Aug 04, 2010. Clinical history: 715.97-[id number]. bilateral hand pain and swelling. Bilateral hip [...] on filedocumented in this encounter Care Teams Restaurant Kitchen And Service Manager Relationship Specialty Start Date End Date Brenda Canchola MD [address] [place] [address] [place] [address] PCP - General 08/03/10 documented as of this encounter
--- OUTSIDE RECORDS SUMMARY | 2024-04-13 15:40 | XMS_ITS | Encounter Summary ---
Author Organization [facility] Address [facility] [place] [address] Care Team Providers Care Livestock Handler Name Role Phone Rodney Padilla MD Primary Care Provider [phone] Encounter Details Date Type Department Care Team (Latest Contact Info) Description 03/14/2024 Travel Social History Tobacco Use Types Packs/Day [...] AM EDT Appointment Mammography/[place] [address] Rodney Padilla MD [address] [place] [address] 05/01/2024 1:45 PM EDT Office [place] [address] Juanpablo Hernandez MD [facility] [place] [address] 05/23/2024 2:45 PM EST Clinical Support Family Medicine at [facility] [address] [place] [address] Julia Low [facility] 01/30/2025 1:30 PM EDT Laboratory Appointment Lab at [facility] Hematology Oncology [address] [place] [address] 01/30/2025 3:[address] [place] [address] Arturo Cordero MD [facility] [place] [address] 01/30/2025 4:15 PM EDT Office Visit Hematology [place] [address] Arturo Cordero MD [facility] DR [place] [address] documented as of this encounter Visit Diagnoses Not on filedocumented in this encounter Care Teams Livestock Handler Relationship Specialty Start Date End Date Rodney Padilla MD [address] [place] [place] [address] PCP - General 07/18/22 04/09/24 documented as of this encounter
--- OUTSIDE RECORDS SUMMARY | 2024-04-13 15:40 | XMS_ITS | Encounter Summary ---
Author Organization [facility] Address [address] [place] [address] Care Team Providers Care Gig Tender Name Role Phone Unavailable Primary Care Provider Unavailabl e Encounter Details Date Type Department Care Team (Late st Contact Info) Description 03/11/2009 Orders Only [facility] Laboratory Services - [facility] [address] [place] [address] Liss Griffiths MD [address] [place] [address] [place] [address] Social History Tobacco Use Types Packs/Day Years [...] ? ALIZE MANJARREZ ? Accession #: ? [id number] ? : ? 1960 (Age: 48) ??F [...] Griffiths MD PATHOLOGY ORDERABLES Performing Organization Address City/State/[facility] Co de Phone Number MAGDIEL VARGAS [address] [place] [address] documented in this encounter Visit Diagnoses Not on filedocumented in this encounter
--- OUTSIDE RECORDS SUMMARY | 2024-04-13 15:40 | XMS_ITS | Encounter Summary ---
Author Organization [facility] [place] [address] Care Team Providers Care Oncology Coordinator Name Role Phone Rodney Padilla MD Primary Care Provider [phone] Reason for Visit * Reason Onset Date Comments Medication Refill 04/08/2024 Encounter Details Date Type Department Care Team (Late st Contact Info) Description 04/08/2024 Refill Family Medicine at [facility] [address] [place] [address] Rodney Padilla MD [address] [facility] [place] [address] Essential hypertension Social History Tobacco Use Types [...] Encounter - Shelbie Cruz CMA - 04/09/2024 1:40 PM EDT Prescription Renewal Request Name: Alize Gramajo : 1960 Prescription(s) Requested: Requested Prescriptions Pending Prescriptions Disp Refills sucralfate (Carafate) 100 mg/mL Suspension 3726 mL 3 Sig: Take 10 mLs by mouth 4 times daily. Refused Prescriptions Disp Refills clopidogreL (Plavix) [...] an appointment send to secretaries to schedule): 03/20/2024 Next Encounter in This Dept: 05/22/2024 Date of Last Refill (for each medication): 04/05/2023 3,726mL/3 Randy Medication category requirements (labs etc): na Status of request: Pended Allergies Allergen Reactions Codeine Phosphate Nausea And Vomiting Erythromycin Base Nausea Only Azithromycin Ibuprofen Stomach upset Lisinopril cough Nsaids (Non-Steroidal Anti-Inflammatory Drug) Nausea And Vomiting Shelbie Cruz CMA 04/09/24 1:43 PM documented in this encounter Plan of Treatment Upcoming Encounters Date Type Department Care Team (Late st Contact Info) Description 05/01/2024 11:20 AM EDT Appointment Mammography/[place] [address] Rodney Padilla MD [address] [facility] [place] [address] 05/01/2024 1:45 PM EDT Office [place] [address] Juanpablo Hernandez MD [facility] [place] [place] [address] 05/23/2024 2:45 PM EST Clinical Support [facility] Medicine at [facility] [address] [place] [address] Julia Low [facility] 01/30/2025 1:30 PM EDT Laboratory Appointment Lab at [facility] Hematology Oncology [address] [place] [address] 01/30/2025 3:[address] [place] [address] Arturo Cordero MD [facility] [place] [address] 01/30/2025 4:15 PM EDT Office Visit Hematology [place] [address] Arturo Cordero MD [facility] [place] [address] documented as of this encounter Visit Diagnoses Diagnosis Essential hypertension Unspecified essential hypertension documented in this encounter Care Teams Oncology Coordinator Relationship Specialty Start Date End Date Rodney Padilla MD [address] [place] [place] [address] PCP - General 07/18/22 04/09/24 documented as of this encounter
--- OUTSIDE RECORDS SUMMARY | 2024-04-13 15:40 | XMS_ITS | Encounter Summary ---
Author Organization [facility] [place] [address] Care Team Providers Care Link Trainer Maintenance Man Name Role Phone Rodney Padilla MD Primary Care Provider [phone]- [phone] Reason for Visit * Reason Comments Medication Refill Encounter Details Date Type Department Care Team (Late st Contact Info) Description 02/10/2024 Refill Family Medicine at [facility] [address] [place] [address] Rodney Padilla MD [address] [facility] [place] [address] Mixed hyperlipidemia Social History Tobacco Use Types [...] 05/01/2024 11:20 AM EDT Appointment Mammography/[place] [address] Rodney Padilla MD [address] [place] [place] [address] 05/01/2024 1:45 PM EDT Office Visit [place] [address] Juanpablo Hernandez MD [facility] [place] [address] 05/23/2024 2:45 PM EST Clinical Support Family Medicine at [facility] [address] [place] [address] Julia Low [facility] 01/30/2025 1:30 PM EDT Laboratory Appointment Lab at [facility] Hematology Oncology [address] [place] [address] 01/30/2025 3:[address] [place] [address] Arturo Cordero MD [facility] HEMATOLOGY [place] [address] 01/30/2025 4:15 PM EDT Office Visit Hematology [place] [address] Arturo Cordero MD [facility] HEMATOLOGY [place] [address] documented as of this encounter Visit Diagnoses Diagnosis Mixed hyperlipidemia documented in this encounter Care Teams Link Trainer Maintenance Man Relationship Specialty Start Date End Date Rodney Padilla MD [address] [place] [address] PCP - General 07/18/22 04/09/24 documented as of this encounter
--- OUTSIDE RECORDS SUMMARY | 2024-04-13 15:40 | XMS_ITS | Encounter Summary ---
Author Organization [facility] Address [address] [place] [address] Care Team Providers Care Access Developer Name Role Phone Unavailable Primary Care Provider Unavailabl e Encounter Details Date Type Department Care Team (Late st Contact Info) Description 08/15/2008 Before PRISM Converted Visit (Maple) [facility] - Maple conversion [address] [place] [address] Brenda Canchola MD [employer] [facility] [address] [place], [place] [id number] Social History Tobacco Use Types Packs/Day Years [...] MICROBIOLOGY - GENER AL ORDERABLES MAGDIEL GREWAL [address] [address] * CYTOPATHOLOGY (08/15/2008 0:00 EST) Pathology Report: CYTOPATHOLOGY REPORT ? Reports generated via electronic interface contain original data; ? however they are lacking the format of the original report. ? Caution should be taken when reading/interpreti ng unformatted reports. ? Name: ? ALIZE MANJARREZ ? Accession #: ? [id number] ? : ? 1960 (Age: 47) ??F [...] ? (LSIL). ? EDUCATIONAL NOTES/RECOMMENDATI ONS ? [facility] recommends following the 2006 Consensus Guidelines for [...] MD PATHOLOGY ORDERABLES [facility]DIEL GREWAL [facility] [address] [place] [address] documented in this encounter Visit Diagnoses Not on filedocumented in this encounter
--- OUTSIDE RECORDS SUMMARY | 2024-04-13 15:40 | XMS_ITS | Encounter Summary ---
Author Organization [facility] Address [address] [place] [address] Care Team Providers Care Senior Cobol Developer Name Role Phone Brenda Canchola MD Primary Care Provider [phone] Encounter Details Date Type Department Care Team (Late st Contact Info) Description 08/04/2010 15:13 EST - 08/04/2010 23:59 EST Hospital Encounter [address] [address] Symone Hayden MD [address] [place] [address], Level [address] [place] [phone] Osteoarthritis Discharge Disposition: Auto Discharge Social History [...] & BLOOD GA S ORDERABLES MAGDIEL GREWAL [facility] [address] [place] [address] * SED. RATE:WESTERGREN (08/04/2010 15:46 EST) Sed. Rate Westergren 14 0 - 30 mm/hr MAGDIEL GREWAL [facility] Blood specimen (specimen) 08/04/2010 15:46 EST 08/04/2010 15:49 EST Symone Hayden MD HEMATOLOGY & PF4 ORD ERABLES MAGDIEL GREWAL [address] [address] * VITAMIN D (25,OH) (08/04/2010 15:46 EST) 25OH Vitamin D Tot 46.6 ng/ml MAGDIEL GREWAL [facility] Comment: Reference Range: <10 ng/ml: Deficient 10-30 ng/ml: Insufficient 30-100 ng/ml: Sufficient >100 ng/ml: Toxic Blood specimen (specimen) 08/04/2010 15:46 EST 08/04/2010 15:49 EST Symone Hayden MD CHEMISTRY & BLOOD GA S ORDERABLES Performing Organization Address [facility] Co de Phone Number MAGDIEL [address] [address] * TSH (08/04/2010 15:46 EST) Pathologist [facility] TSH 1.67 0.35 - 5.00 uIU/ml VELOZ [facility] Blood specimen (specimen) 08/04/2010 15:46 EST 08/04/2010 15:49 EST Symone Hayden MD CHEMISTRY & BLOOD GA S ORDERABLES Performing Organization Address [facility] de Phone Number MAGDIEL [address] [address] documented in this encounter Visit Diagnoses Diagnosis Osteoarthritis Osteoarthrosis, unspecified whether generalized or localized, unspecified site documented in this encounter Care Teams Senior Cobol Developer Relationship Specialty Start Date End Date Brenda Canchola MD [address] [place] [address] [place] [address] PCP - General 08/03/10 documented as of this encounter
--- OUTSIDE RECORDS SUMMARY | 2024-04-13 15:40 | XMS_ITS | Encounter Summary ---
Author Organization Replaced By [facility] Address [facility] [place] [address] Care Team Providers Care Chip Drier Name Role Phone Rodney Padilla MD Primary Care Provider [phone] Reason for Visit * Reason Onset Date Comments Medication Refill 02/10/2024 Encounter Details Date Type Department Care Team (Late st Contact Info) Description 02/10/2024 Refill Family Medicine at [facility] [address] [place] [address] Luis E Narayan MD [facility] DR [address] [place] [address] Social History Tobacco Use Types Packs/Day Years [...] 05/01/2024 11:20 AM EDT Appointment Mammography/[place] [address] Rodney Padilla MD [address] [place] [address] 05/01/2024 1:45 PM EDT Office [place] [address] Juanpablo Hernandez MD [facility] [place] [place] [address] 05/23/2024 2:45 PM EST Clinical Support Family Medicine at [facility] [address] [place] [address] Julia Low Bacilio 01/30/2025 1:30 PM EDT Laboratory Appointment Lab at [facility] Hematology Oncology [address] [place] [address] 01/30/2025 3:[address] [place] [address] Arturo Cordero MD [facility] [place] [address] 01/30/2025 4:15 PM EDT Office Visit Hematology and Oncology at [facility] [place] [address] Arturo Cordero MD [facility] [address] [place] [address] documented as of this encounter Visit Diagnoses Not on filedocumented in this encounter Care Teams Chip Drier Relationship Specialty Start Date End Date Rodney Padilla MD [address] [place] [place] [address] PCP - General 07/18/22 04/09/24 documented as of this encounter
--- OUTSIDE RECORDS SUMMARY | 2024-04-13 15:40 | XMS_ITS | Encounter Summary ---
Author Organization [facility] Address [facility] [place] [address] Care Team Providers Care Fur Glosser Name Role Phone Rodney Padilla MD Primary Care Provider [phone] Encounter Details Date Type Department Care Team (Latest Contact Info) Description 03/13/2024 Travel Social History Tobacco Use Types Packs/Day [...] 11:20 AM EDT Appointment Mammography/[place] [address] Rodney Padilla MD [address] [place] [address] 05/01/2024 1:45 PM EDT Office [place] [address] Juanpablo Hernandez MD [facility] [address] 05/23/2024 2:45 PM EST Clinical Support Family Medicine at [facility] [address] [place] [address] Julia Low [facility] 01/30/2025 1:30 PM EDT Laboratory Appointment Lab at [facility] Hematology Oncology [address] [place] [address] 01/30/2025 3:[address] [place] [address] Arturo Cordero MD [facility] DR HEMATOLOGY [place] [address] 01/30/2025 4:15 PM EDT Office Visit Hematology [place] [address] Artruo Cordero MD [facility] DR HEMATOLOGY [place] [address] documented as of this encounter Visit Diagnoses Not on filedocumented in this encounter Care Teams Fur Glosser Relationship Specialty Start Date End Date Rodney Padilla MD [address] [place] [address] PCP - General 07/18/22 04/09/24 documented as of this encounter
--- OUTSIDE RECORDS SUMMARY | 2024-04-13 15:41 | XMS_ITS | Encounter Summary ---
Author Organization [facility] [place] [address] Care Team Providers Care Lifts And Cranes Inspector Name Role Phone Rodney Padilla MD Primary Care Provider [phone]- [phone] Reason for Visit * Consultation (Routine) - Closed Specialty Diagnoses / Procedures Referred By Gonzalez kumari Referred To Contact Pulmonology Diagnoses Interstitial lung disease Rodney Padilla MD [address] [place] [address] [facility] Pulmonology [address] [place] [phone] Referral ID Status Reason Start Date Expiration Date V isits Requested Visits Authorized [id number] Closed Consult, Test & Treat 08/21/2023 08/20/2024 1 1 Encounter Details Date Type Department Care Team (Late st Contact Info) Description 10/24/2023 11:00 AM EDT Office [place] [address] Jonathan Boswell MD [facility] [place] [address] Nicotine dependence, cigarettes, uncomplicated; Wheeze; [...] and gum and have you call the [employer]ny[employer]Qu[employer] line for additional assistance. They may also [...] visit. You can reach me by phone ([phone]) or by sending a [employer] message. Best, Jonathan Boswell MD Tips for Optimal Use of Nasal [place] Medication It is incredibly common for people [...] towards the top of your Left ear. [place] the medication. But DO NOT forcefully sniff [...] he starts to go through the procedure. [email or web address] Tobacco Treatment: Nicotine Replacement Instructions Nicotine patch [...] from the original note were not included. [facility] Section of Pulmonary and Critical Care Medicine Outpatient Consultation - Initial Visit Date of Encounter: 10/24/2023 Referring Provider: Rodney Padilla MD [address] [place] [address] PCP: Rodney Padilla MD Reason for Evaluation: ILD This was a gkqo-ad-ywha office visit. History of Present Illness: Alize [...] on disability. 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 She enjoys gardening, renae in particular. 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 10/09/2007 History of [...] 3.47) performed by Juanpablo Hernandez MD at [facility] PRO EXCIS CORNEA LESN Left 05/14/2020 EXCISION OF LESION, CORNEA, EXCEPT PTERYGIUM (WRVU 7.5) performed by Juanpablo Hernandez MD at [facility] PRO LAP, PARTIAL NEPHRECTOMY Left 06/28/2019 LAPAROSCOPY, PARTIAL NEPHRECTOMY, ROBOTIC ASSIST (WRVU 27.41) performed by Avila Medina MD at [facility] MAIN OR PRO PLACE AMNIOTIC MEMBRANE OCULAR SURFACE;SINGLE LAYER SUTURED Left 05/14/2020 PLACEMENT OF AMNIOTIC MEMBRANE ON THE OCULAR SURFACE,SINGLE LAYER,SUTURED (WRVU 2.5) performed by Juanpablo Hernandez MD at [facility] Family History: Family History Problem [...] privary and control challenging. 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 Current Medications Current Outpatient Medications: fluticasone propionate (Flonase) 50 mcg/actuation [place], Suspension, SPRAY 1 SPRAY IN EACH NOSTRIL TWO TIMES A DAY, Disp: 48 mL, Rfl: 3 lamoTRIgine (LaMICtal) 150 mg tablet, Take 150 mg by mouth Daily at Noon., Disp: , Rfl: simvastatin (Zocor) 10 mg tablet, TAKE ONE TABLET BY MOUTH EVERY DAY, Disp: 90 tablet, Rfl: 1 Blood-Glucose Meter,Continuous (Dexcom G7 Senior Private Client Advisor) Misc, 1 Device by Misc.(Non- Drug; Combo [...] , Rfl: inhalational spacing device (Hesham Aerosol [place] Enhancer) Spacer, 1 each by Misc.(Non-Drug; Combo [...] minutes on this encounter on 10/24/2023 including wfsu-sg-gjgc time, counseling, managingmedications, reviewing records, interpreting data, and documenting as detailed in my note above. Jonathan Boswell MD [facility] Surgeon/Presidentblow mold machine operator Pulmonary and [place] [address] [email or web address] documented in this encounter Plan of Treatment Upcoming Encounters Date Type Department Care Team (Late st Contact Info) Description 05/01/2024 11:20 AM EDT Appointment Mammography/[place] [phone] Rodney Padilla MD [address] [place] [address] 05/01/2024 1:45 PM EDT Office [place] [phone] Juanpablo Hernandez MD [facility] [place] [address] 05/23/2024 2:45 PM EST Clinical Support Family Medicine at [facility] [address] [place] [phone] Julia Low [facility] 01/30/2025 1:30 PM EDT Laboratory Appointment Lab at [facility] Hematology Oncology [address] [place] [address] 01/30/2025 3:[address] [place] [phone] Arturo Cordero MD [facility] DR [place] [address] 01/30/2025 4:15 PM EDT Office Visit Hematology [place] [address] Arturo Cordero MD [facility] DR [place] [address] Scheduled Orders Name Type Priority Associated Diagnoses [...] present documented in this encounter Care Teams Lifts And Cranes Inspector Relationship Specialty Start Date End Date Rodney Padilla MD [address] [place] [address] PCP - General 07/18/22 04/09/24 documented as of this encounter
--- OUTSIDE RECORDS SUMMARY | 2024-04-13 15:41 | XMS_ITS | Encounter Summary ---
Author Organization [facility] [place] [address] Care Team Providers Care Loading Unit Operator Powder Charging Name Role Phone Rodney Padilla MD Primary Care Provider Encounter Details Date Type Department Care Team (Late st Contact Info) Description 08/29/2023 2:15 PM EST Office Visit Sleep Center at [facility] [address] [place] [phone] Samantha Cadet, EDUCATION AND DEVELOPMENT MANAGER TITO on CPAP Social History Tobacco Use [...] neoplasm of kidney, asthma, COPD, Diabetes, HTN, NC, dry mouth, left eye,and mental health problem. [...] Breathing:yes Symptom Benefit: more rested with CPAP [place]:[email or web address]@Patient-reported last 4 scores: 05/07/2019 6:23 PM 05/09/2019 11:11 AM 04/13/2022 12:14 PM 08/29/2023 1:41 PM [facility] 7 (Low Risk) 10 (High Risk) [...] if drowsy, if drowsy while driving to pull up hand and take a nap. 4) Patient to [...] 05/01/2024 11:20 AM EDT Appointment Mammography/[place] [phone] Rodney Padilla MD [address] [place] [address] 05/01/2024 1:45 PM EDT Office Visit [place] [phone] Juanpablo Hernandez MD [facility] [place] [address] 05/23/2024 2:45 PM EST Clinical Support Family Medicine at [facility] [address] [place] [phone] Julia Low [facility] 01/30/2025 1:30 PM EDT Laboratory Appointment Lab at [facility] Hematology Oncology [address] [place] [address] 01/30/2025 3:[address] [place] [address] Arturo Cordero MD [facility] [address] [place] [address] 01/30/2025 4:15 PM EDT Office Visit Hematology [place] [address] Arturo Cordero MD [facility] [address] [place] [address] documented as of this encounter Visit Diagnoses Diagnosis TITO on CPAP Obstructive sleep apnea (adult) (pediatric) documented in this encounter Care Teams Loading Unit Operator Powder Charging Relationship Specialty Start Date End Date Rodney Padilla MD [address] [place] [place] [address] PCP - General 07/18/22 04/09/24 documented as of this encounter
--- OUTSIDE RECORDS SUMMARY | 2024-04-13 15:41 | XMS_ITS | Encounter Summary ---
Author Organization [facility] [place] [address] Care Team Providers Care Insurance Loss Adjuster Name Role Phone Rodney Padilla MD Primary Care Provider +1- [phone] Reason for Visit * Reason Comments Follow-up Encounter Details Date Type Department Care Team (Late st Contact Info) Description 12/20/2023 1:30 PM EDT Office Visit Family Medicine at [facility] [address] [place] [phone] Rodney Padilla MD [address] [facility] [place] [address] Type 2 diabetes mellitus without long-term current [...] or during use. 100 each 3 fluticasone fxueozy-cayrjhkvsbga-fhfnafpaim (Trelegy Ellipta) 200-62.5-25 mcg Inhale 1 puff into the lungs daily. Rinse mouth after use 1 each 11 fluticasone propionate (Flonase) 50 mcg/actuation [place], Suspension SPRAY 1 SPRAY IN EACH NOSTRIL TWO TIMES A DAY 48 mL 3 lamoTRIgine (LaMICtal) 150 mg tablet Take 150 mg by mouth Daily at Noon. simvastatin (Zocor) 10 mg tablet TAKE ONE TABLET BY MOUTH EVERY DAY 90 tablet 1 Blood-Glucose Meter,Continuous (Dexcom G7 Computer Trainer) Misc 1 Device by [facility].(Non- Drug; Combo Route) route continuous. Blood-Glucose Sensor (Dexcom G7 Sensor) Device 1 Device by Mis.(Non-Drug; Combo Route) route every10 days. 3 each 11 Lantus Solostar U-100 Insulin 100 unit/mL (3 mL) pen Inject 18 Units subcutaneously nightly. Inject2-20 units based on BG Indications: type 2 diabetes mellitus inhalational spacing device (Hesham Aerosol [place] Enhancer) Spacer 1 each by Misc.(Non-Drug; Combo [...] patient/family/caregiver Referring and communicating with other health manager of care Documenting clinical information in the electronic or other health record Independently interpreting results Care coordination documented in this encounter Plan of Treatment Upcoming Encounters Date Type Department Care Team (Late st Contact Info) Description 05/01/2024 11:20 AM EDT Appointment Mammography[place] [phone] Rodney Padilla MD [address] [facility] [place], [place] [phone] 05/01/2024 1:45 PM EDT Office [place] [phone] Juanpablo Hernandez MD [facility] [place] [address] 05/23/2024 2:45 PM EST Clinical Support Family Medicine at [facility] [address] [place] [address] Devante Julia Pelletier [facility] 01/30/2025 1:30 PM EDT Laboratory Appointment Lab at [facility] Hematology Oncology [address] [place] [address] 01/30/2025 3:[address] [place] [phone] Arturo Cordero MD [facility] DR HEMATOLOGY [place] [address] 01/30/2025 4:15 PM EDT Office Visit Hematology [place] [phone] Arturo Cordero MD [facility] DR HEMATOLOGY [place] [address] documented as of this encounter Results * U Albumin/Cre Ratio (12/20/2023 2:28 PM EDT) Albumin / Creatinin Ratio, Urine Not Calculated 0 - 29 mcg/mg Cr [facility] Comment: Reference Ranges: <30 mcg/mg: [...] 2, 357? 362 Albumin, Urine <3.0 mg/L [facility] Creatinine, Urine 75 mg/dL [facility] Urine 12/20/2023 2:28 PM EDT 12/20/2023 4:11 PM EDT Narrative Resulting Agency Comment Spec In Lab Rodney Padilla MD URINE ORDERABLES Performing Organization Address City/[facility]/ZIP Co de Phone Number [facility] [place] [place] [address] * (ABNORMAL) Hemoglobin A1c (12/20/2023 2:14 PM EDT) Hemoglobin A1c 9.4(H) 4.3 - 5.6 % [facility] Comment: Reference Range: 4.3 - [...] Mellitus, Diabetes Care 2013; 36: Suppl. 1, S6774 Estimated Average Glucose 222 mg/dL [facility] Blood 12/20/2023 2:14 PM EDT 12/20/2023 4:37 PM EDT Narrative Resulting Agency Comment Spec In Lab Rodney Padilla MD CHEMISTRY ORDERABLE S Performing Organization Address [facility] Co de Phone Number [facility] [place] [address] documented in this encounter Visit Diagnoses Diagnosis Type 2 diabetes mellitus without long-term current use of insulin Essential hypertension Unspecified essential hypertension TITO (obstructive sleep apnea) Obstructive sleep apnea (adult) (pediatric) Interstitial lung disease Postinflammatory pulmonary fibrosis documented in this encounter Care Teams Insurance Loss Adjuster Relationship Specialty Start Date End Date Rodney Padilla MD [address] [place] [address] PCP - General 07/18/22 04/09/24 documented as of this encounter
--- OUTSIDE RECORDS SUMMARY | 2024-04-13 15:41 | XMS_ITS | Encounter Summary ---
Author Organization [facility] [address] Care Team Providers Care Institutional Aide Name Role Phone Rodney Padilla MD Primary Care Provider Reason for Referral * Diagnostic Test (Routine) - Closed Specialty Diagnoses / Procedures Referred By Contac t Referred To Contact Radiology Diagnoses Malignant melanoma of conjunctiva, left Procedures CT Neck Soft Tissue w Contrast (Generic) Arturo Cordero MD [facility] [address] [place] [address] [facility] [place] [address] Referral ID Status Reason Start Date Expiration Date V isits Requested Visits Authorized [id number] Closed Specialty Service Requested 12/29/2022 06/30/2024 1 1 * Diagnostic Test (Routine) - Closed Specialty Diagnoses / Procedures Referred By Contac t Referred To Contact Radiology Diagnoses Malignant melanoma of conjunctiva, left Renal cell cancer, left Procedures CT Chest Abdomen Pelvis w Contrast (Generic) Arturo Cordreo MD [facility] [address] [place] [address] [facility] [place] [address] Referral ID Status Reason Start Date Expiration Date V isits Requested Visits Authorized [id number] Closed Specialty Service Requested 12/29/2022 06/30/2024 1 1 Reason for Visit * Diagnostic Test (Routine) - Closed Specialty Diagnoses / Procedures Referred By Contac t Referred To Contact Radiology Diagnoses Malignant melanoma of conjunctiva, left Renal cell cancer, left Procedures CT Chest Abdomen Pelvis w Contrast (Generic) Arturo Cordero MD [facility] DR [place] [address] [facility] [place] [address] Referral ID Status Reason Start Date Expiration Date V isits Requested Visits Authorized [id number] Closed Specialty Service Requested 12/29/2022 06/30/2024 1 1 Encounter Details Date Type Department Care Team (Latest Contact Info) Description 08/03/2023 7:35 AM EST - 08/03/2023 7:44 AM EST Hospital [place] [address] Arturo Cordero MD [facility] [address] [place] [address] Malignant melanoma of conjunctiva, left; [...] End Date inhalational spacing device (Hesham Aerosol [place] Enhancer) SpacerIndications:Chr onic obstructive pulmonary disease, unspecified [...] 81 mg by mouth daily. Blood-Glucose Sensor (CaseReader G7 Sensor) DeviceIndications:Typ e 2 diabetes mellitus with hyperglycemia, without long-term current use of insulin 1 Device by [facility].(Non-Drug; Combo Route) route every 10 days. 3 each 11 07/07/2023 08/18/2023 lamoTRIgine (LaMICtal) 100 mg tabletIndications:Bip olar affective disorder in remission Take 1.5 tablets by mouth daily. 90 tablet 3 06/20/2023 08/29/2023 umeclidinium-vilanter oL (Anoro Ellipta) 62.5-25 mcg/actuation Disk with DeviceIndications:Chr onic obstructive pulmonary disease, unspecified COPD type Inhale 1 Inhalation into the lungs daily. 3 each 3 06/20/2023 10/24/2023 sucralfate (Carafate) 100 mg/mL Suspension Take 10 [...] 09/26/2022 09/19/2023 fluticasone propionate (Flonase) 50 mcg/actuation [place], Suspension 1 spray by Each Nare route [...] 05/01/2024 11:20 AM EDT Appointment Mammography/[place] [address] Rodney Padilla MD [address] [place] [address] 05/01/2024 1:45 PM EDT Office [place] [address] Juanpablo Hernandez MD [facility] [place] [address] 05/23/2024 2:45 PM EST Clinical Support [facility] Medicine at [facility] [address] [place] [address] Julia Low, [facility] 01/30/2025 1:30 PM EDT Laboratory Appointment Lab at [facility] Hematology Oncology [address] [place] [address] 01/30/2025 3:[address] [place] [address] Arturo Cordero MD [facility] [address] [place] [address] 01/30/2025 4:15 PM EDT Office Visit Hematology [place] [address] Arturo Cordero MD [facility] [address] [place] [address] documented as of this encounter Procedures Procedure [...] who have questions please contact the health resident care manager rn that requested your imaging first. ? Electronically signed by: HIMANSHU Wiley [facility] ([phone]), at 08/04/2023 9:11 AM Narrative 08/04/2023 9:11 AM EST EXAMINATION: CT NECK SOFT TISSUE W CONTRAST (GENERIC) CLINICAL HISTORY: Melanoma, stage >= IIB, monitor; Left eye conjunctiva melanoma treated in May 2020, last CT in January 2023 TECHNIQUE: CT neck performed after the intravenous administration of contrast. . 110 cc of Omnipaque 350 administered. COMPARISON: CT neck 01/06/2023. FINDINGS: The orbits are not included within the aprui-zp-qomb. No masses along the visualized upper aerodigestive [...] The orbits are not included within the vvrrg-mv-vrxt. No masses alongthe visualized upper aerodigestive tract. [...] patients who have questions please contactthe health resident care manager rn that requested your imaging first. Electronically signed by: Zain Saxena [facility]([phone]), at 08/04/2023 9:11 AM Arturo Cordero MD IMG CT ORDERABLES [...] who have questions please contact the health resident care manager rn that requested your imaging first. ? Electronically signed by: Zain Izaguirre MD, [facility] ([phone]), at 08/03/2023 4:55 PM Narrative 08/03/2023 4:55 PM EST EXAMINATION: CT [...] patients who have questions please contactthe health resident care manager rn that requested your imaging first. Electronically signed by: Zain Izaguirre MD, [facility]([phone]), at 08/03/2023 4:55 PM Arturo Cordero MD IMG CT ORDERABLES documented [...] mLs documented in this encounter Care Teams Institutional Aide Relationship Specialty Start Date End Date Rodney Padilla MD [address] [place] [address] PCP - General 07/18/22 04/09/24 documented as of this encounter
--- OUTSIDE RECORDS SUMMARY | 2024-04-13 15:41 | XMS_ITS | Encounter Summary ---
Author Organization [facility] Address [facility] [place] [address] Care Team Providers Care Entry Level Installation Technician Name Role Phone Rodney Padilla MD Primary Care Provider +1- [phone] Encounter Details Date Type Department Care Team [...] 05/01/2024 11:20 AM EDT Appointment Mammography/[place] [phone] Rodney Padilla MD [address] [place] [address] 05/01/2024 1:45 PM EDT Office [place] [address] Juanpablo Hernandez MD [facility] [place] [address] 05/23/2024 2:45 PM EST Clinical Support Family Medicine at [facility] [address] [place] [address] Julia Low [facility] 01/30/2025 1:30 PM EDT Laboratory Appointment Lab at [facility] Hematology Oncology [address] [place] [address] 01/30/2025 3:[address] [place] [phone] Arturo Cordero MD [facility] DR [place] [address] 01/30/2025 4:15 PM EDT Office Visit Hematology [place] [address] Arturo Cordero MD [facility] DR [place] [address] documented as of this encounter Visit Diagnoses Not on filedocumented in this encounter Care Teams Entry Level Installation Technician Relationship Specialty Start Date End Date Rodney Padilla MD [address] [place] [address] PCP - General 07/18/22 04/09/24 documented as of this encounter
--- OUTSIDE RECORDS SUMMARY | 2024-04-13 15:41 | XMS_ITS | Encounter Summary ---
Author Organization [facility] [place] [address] Care Team Providers Care Admitting Clerk Name Role Phone Rodney Padilla MD Primary Care Provider +1- [phone] Reason for Visit * Reason Onset Date Comments Prior Authorization 12/07/2023 [employer] 0.025% cream Encounter Details Date Type Department Care Team (Late st Contact Info) Description 12/07/2023 Telephone Dermatology at [facility] [address] [place] [phone] Erika Caraballo LNA Prior Authorization ([employer] 0.025% [...] cosmetic Pas, insurance will not cover. Archived [facility] Anderson: [id number] - Rx #: [id number] documented in this encounter Plan of Treatment Upcoming Encounters Date Type Department Care Team (Late st Contact Info) Description 05/01/2024 11:20 AM EDT Appointment Mammography/[place] [address] Rodney Padilla MD [address] [facility] [place], [place] [address] 05/01/2024 1:45 PM EDT Office [place] [address] Juanpablo Hernandez MD [facility] [address] 05/23/2024 2:45 PM EST Clinical Support Family Medicine at [facility] [address] [place] [phone] Julia Low [facility] 01/30/2025 1:30 PM EDT Laboratory Appointment Lab at [facility] Hematology Oncology [address] [place] [address] 01/30/2025 3:[address] [place] [phone] Arturo Cordero MD [facility] DR HEM[place]OLOG[place] [address] 01/30/2025 4:15 PM EDT Office Visit Hematology [place] [phone] Arturo Cordero MD [facility] [place]ATOLOGY [place] [address] documented as of this encounter Visit Diagnoses Not on filedocumented in this encounter Care Teams Admitting Clerk Relationship Specialty Start Date End Date oRdney Padilla MD [address] [place] [address] PCP - General 07/18/22 04/09/24 documented as of this encounter
--- OUTSIDE RECORDS SUMMARY | 2024-04-13 15:41 | XMS_ITS | Encounter Summary ---
Author Organization [facility] Address [facility] [address] Care Team Providers Care Data Support Analyst Name Role Phone Rodney Padilla MD Primary Care Provider [phone] Encounter Details Date Type Department Care Team (Late st Contact Info) Description 08/11/2023 Orders Only [place]ematology [place] [address] Arturo Cordero MD [facility] [address] [place] [address] Social History Tobacco Use Types Packs/Day Years [...] 05/01/2024 11:20 AM EDT Appointment Mammography/[place] [phone] Rodney Padilla MD [address] [place] [address] 05/01/2024 1:45 PM EDT Office [place] [address] Juanpablo Hernandez MD [facility] [place] [address] 05/23/2024 2:45 PM EST Clinical Support Family Medicine at [facility] [address] [place] [address] Julia Low [facility] 01/30/2025 1:30 PM EDT Laboratory Appointment Lab at [facility] Hematology Oncology [address] [place] [address] 01/30/2025 3:[address] [place] [place] [address] Arturo Cordero MD [facility] [address] [place] [address] 01/30/2025 4:15 PM EDT Office Visit [place]ology [place] [address] Arturo Cordero MD [facility] [address] [place] [address] documented as of this encounter Visit Diagnoses Not on filedocumented in this encounter Care Teams Data Support Analyst Relationship Specialty Start Date End Date Rodney Padilla MD [address] [place] [address] PCP - General 07/18/22 04/09/24 documented as of this encounter
--- OUTSIDE RECORDS SUMMARY | 2024-04-13 15:41 | XMS_ITS | Encounter Summary ---
Author Organization [facility] [place] [address] Care Team Providers Care Grave Cleaner Name Role Phone Rodney Padilla MD Primary Care Provider [phone]- [phone] Encounter Details Date Type Department Care Team (Latest Contact Info) Description 08/18/2023 12:40 PM EST - 08/18/2023 11:59 PM EST Hospital En[place] [address] Chronic obstructive pulmonary disease, unspecified COPD type [...] at Noon. 08/17/2023 Blood-Glucose Meter,Continuous (Dexcom G7 Event Sales Assistant) MiscIndications:Type 2 diabetes mellitus with hyperglycemia, without long-term current use of insulin 1 Device by [facility].(Non-Drug; Combo Route) route continuous. 08/18/2023 Blood-Glucose Sensor (Dexcom G7 Sensor) DeviceIndications:Typ e 2 diabetes mellitus with hyperglycemia, without long-term current use of insulin 1 Device by [facility].(Non-Drug; Combo Route) route every 10 days. 3 each 11 08/18/2023 inhalational spacing device (Hesham Aerosol [place] Enhancer) SpacerIndications:Chr onic obstructive pulmonary disease, unspecified COPD type 1 each by [facility].(Non-Drug; Combo Route) route [...] 09/26/2022 09/19/2023 fluticasone propionate (Flonase) 50 mcg/actuation [place], Suspension 1 spray by Each Nare route [...] 05/01/2024 11:20 AM EDT Appointment Mammography/[place] [address] Rodney Padilla MD [address] [place] [address] 05/01/2024 1:45 PM EDT Office [place] [address] Juanpablo Hernandez MD [facility] [place] [address] 05/23/2024 2:45 PM EST Clinical Support Family Medicine at [facility] [address] [place] [address] Julia Low [facility] 01/30/2025 1:30 PM EDT Laboratory Appointment Lab at [facility] Hematology Oncology [address] [place] [address] 01/30/2025 3:[address] [place] [address] Arturo Cordero MD [facility] HEMATOLOGY [place] [address] 01/30/2025 4:15 PM EDT Office Visit Hematology [place] [address] Arturo Cordero MD [facility] HEMATOLOGY [place] [address] documented as of this encounter Procedures Procedure [...] PFT FEV1/FVC Pre-BD Z-Score -0.96 COMPAS PFT WXJ89-32 Actual Pre-BD 0.88 % COMPAS PFT HRL93-79 Predicted 2.06 % COMPAS PFT BDH67-49 Pre-BD % of Predicted 43 % COMPAS PFT QGQ47-77 Pre-BD Z-Score -1.92 COMPAS PFT DLCO Hb [...] type documented in this encounter Care Teams Grave Cleaner Relationship Specialty Start Date End Date Rodney Padilla MD [address] [place] [address] PCP - General 07/18/22 04/09/24 documented as of this encounter
--- OUTSIDE RECORDS SUMMARY | 2024-04-13 15:41 | XMS_ITS | Encounter Summary ---
Author Organization [facility] [place] [address] Care Team Providers Care Child Nutrition Manager Name Role Phone Rodney Padilla MD Primary Care Provider Reason for Referral * Diagnostic Test (Routine) - Closed Specialty Diagnoses / Procedures Referred By Contac t Referred To Contact Radiology Diagnoses Malignant melanoma of conjunctiva, left Procedures CT Neck Soft Tissue w Contrast (Generic) Tee Lara MD [facility] DR HEMATOLOGY/[place] [address] [place] [address] Referral ID Status Reason Start Date Expiration Date V isits Requested Visits Authorized [id number] Closed Specialty Service Requested 08/03/2023 01/31/2025 1 1 * Diagnostic Test (Routine) - Closed Specialty Diagnoses / Procedures Referred By Contac t Referred To Contact Radiology Diagnoses Malignant melanoma of conjunctiva, left Procedures CT Chest Abdomen Pelvis w Contrast (Generic) Tee Lara MD [facility] DR HEMATOLOGY/[place] [address] [facility] [place] [address] Referral ID Status Reason Start Date Expiration Date V isits Requested Visits Authorized [id number] Closed Specialty Service Requested 08/03/2023 01/31/2025 1 1 Reason for Visit * Reason Comments Follow-up Encounter Details Date Type Department Care Team (Cornelius st Contact Info) Description 08/03/2023 10:15 AM EST Office Visit Hematology [place] [address] Arturo Cordero MD [facility] DR HEMATOLOGY [place] [address] Nidhi Ceballos APRN [facility] [place] [address] Malignant melanoma of conjunctiva, left; Renal cell [...] from the original note were not included. [facility] NOTE REFERING PHYSICIAN: Dr. Juanpablo Hernandez [...] management - fall 2018: saw a new senior principal software engineer and was referred to Dr. 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 Medina - 03/31/2020: saw her senior principal software engineer Dr. 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 10/09/2007 History of [...] 3.47) performed by Juanpablo Hernandez MD at [facility] OSC PRO EXCIS CORNEA LESN Left 05/14/2020 EXCISION OF LESION, CORNEA, EXCEPT PTERYGIUM (WRVU 7.5) performed by Juanpablo Hernandez MD at [facility] OSC PRO LAP, PARTIAL NEPHRECTOMY Left 06/28/2019 LAPAROSCOPY, PARTIAL NEPHRECTOMY, ROBOTIC ASSIST (WRVU 27.41) performed by Avila Medina MD at [facility] MAIN OR PRO PLACE AMNIOTIC MEMBRANE OCULAR SURFACE;SINGLE LAYER SUTURED Left 05/14/2020 PLACEMENT OF AMNIOTIC MEMBRANE ON THE OCULAR SURFACE,SINGLE LAYER,SUTURED (WRVU 2.5) performed by Juanpablo Hernandez MD at [facility] OSC MEDS: Alcohol Swabs, Blood-Glucose Sensor, LORazepam, [...] with significant other 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, 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 [...] Tee Lara MD PGY 4 Hem/Onc Fellow [facility] ATTENDING NOTE: Clinically she is doing fairly [...] [address] Rodney Padilla MD [address] [place] [address] 05/01/2024 1:45 PM EDT Office [place] [address] Juanpablo Hernandez MD [facility] [place] [address] 05/23/2024 2:45 PM EST Clinical Support [facility] [address] [place] [address] Julia Low [facility] 01/30/2025 1:30 PM EDT Laboratory Appointment Lab at [facility] Hematology Oncology [address] [place] [address] 01/30/2025 3:[address] [place] [address] Arturo Cordero MD [facility] [address] HEMATOLOGY AND ONCOLOGY [place], [place] [address] 01/30/2025 4:15 PM EDT Office Visit Hematology [place] [address] Arturo Cordero MD [facility] [address] [place]EMATOLOGY [place] [address] documented as of this encounter Results * CT Neck Soft Tissue w Contrast (Generic) (02/01/2024 10:24 AM EDT) [employer] WORKSTATION ID [id number] RAD Anatomical Region Laterality Modality Neck, Head [...] have questions please contact the health care process manager that requested your imaging first. ? Electronically signed by: Dipika Palacios [facility] ([phone]), at 02/02/2024 4:32 PM Narrative 02/02/2024 4:32 [...] who have questions please contactthe health care process manager that requested your imaging first. Electronically signed by: Dipika Palacios [facility]([phone]), at 02/02/2024 4:32 PM Arturo Cordero MD IMG CT ORDERABLES * CT Chest Abdomen Pelvis w Contrast (Generic) (02/01/2024 10:24 AM EDT) WORKSTATION ID [id number] RAD Anatomical Region Laterality Modality Abdomen, Pelvis [...] have questions please contact the health care process manager that requested your imaging first. ? Electronically signed by: Leo Camilo MD, [facility] ([phone]), at 02/02/2024 9:52 AM Narrative 02/02/2024 9:52 [...] who have questions please contactthe health care process manager that requested your imaging first. Arturo Cordero MD IM CT ORDERABLES * Lactate Dehydrogenase (02/01/2024 8:19 AM EDT) Lactate Dehydrogenase 195 110 - 220 unit/L [facility] Blood 02/01/2024 8:19 AM EDT 02/01/2024 8:39 AM EDT Narrative Resulting Agency Comment Spec In Lab Arturo Cordero MD CHEMISTRY ORDERABLES [facility] [place] [address] * Comprehensive metabolic panel (non-fasting) (02/01/2024 8:19 [...] Narrative Resulting Agency Comment Spec In Lab rAturo Cordero MD CHEMISTRY ORDERABLES [facility] [place] [address] documented in this encounter Visit Diagnoses Diagnosis Malignant melanoma of conjunctiva, left Renal cell cancer, left Lung nodule Solitary pulmonary nodule Malignant melanoma of conjunctiva, left documented in this encounter Care Teams Child Nutrition Manager Relationship Specialty Start Date End Date Rodney Padilla MD [address] [place] [address] PCP - General 07/18/22 04/09/24 documented as of this encounter
--- OUTSIDE RECORDS SUMMARY | 2024-04-13 15:41 | XMS_ITS | Encounter Summary ---
Author Organization [facility] [place] [address] Care Team Providers Care Human Relations Teacher Name Role Phone Rodney Padilla MD Primary Care Provider +1- [phone] Reason for Visit * Reason Comments Medication Refill Encounter Details Date Type Department Care Team (Late st Contact Info) Description 11/01/2023 Refill Family Medicine at [facility] [address] [place] [address] Rodney Padilla MD [address] [facility] [place] [address] Type 2 diabetes mellitus without long-term current [...] medication): insulin needles, disposable, 32 gauge x 32 Needle 10/05/2022, 100 each:11 Alcohol swab 11/07/2022, [...] 05/01/2024 11:20 AM EDT Appointment Mammography/[place] [address] Rodney Padilla MD [address] [place] [place] [address] 05/01/2024 1:45 PM EDT Office [place] [address] Juanpablo Hernandez MD [facility] [place] [address] 05/23/2024 2:45 PM EST Clinical Support Family Medicine at [facility] [address] [place] [address] Julia Low [facility] 01/30/2025 1:30 PM EDT Laboratory Appointment Lab at [facility] Hematology Oncology [address] [place] [address] 01/30/2025 3:[address] [place] [address] Arturo Cordero MD [facility] DR HEMATOLOGY [place] [address] 01/30/2025 4:15 PM EDT Office Visit Hematology [place] [address] Arturo Cordero MD [facility] DR HEMATOLOGY [place] [address] documented as of this encounter Visit Diagnoses Diagnosis Type 2 diabetes mellitus without long-term current use of insulin documented in this encounter Care Teams Human Relations Teacher Relationship Specialty Start Date End Date Rodney Padilla MD [address] [place] [address] PCP - General 07/18/22 04/09/24 documented as of this encounter
--- OUTSIDE RECORDS SUMMARY | 2024-04-13 15:41 | XMS_ITS | Encounter Summary ---
Author Organization [facility] Address [facility] [place] [address] Care Team Providers Care Briefcase Sewer Name Role Phone Rodney Padilla MD Primary Care Provider [phone]- [phone] Encounter Details Date Type Department Care Team [...] 05/01/2024 11:20 AM EDT Appointment Mammography/[place] [address] Rodney Padilla MD [address] [place] [address] 05/01/2024 1:45 PM EDT Office [place] [address] Juanpablo Hernandez MD [facility] [place] [address] 05/23/2024 2:45 PM EST Clinical Support Family Medicine at [facility] [address] [place] [address] Julia Low [facility] 01/30/2025 1:30 PM EDT Laboratory Appointment Lab at [facility] Hematology Oncology [address] [place] [address] 01/30/2025 3:[address] [place] [address] Arturo Cordero MD [facility] [place] [address] 01/30/2025 4:15 PM EDT Office Visit Hematology [place] [address] Arturo Cordero MD [facility] [address] [place] [address] documented as of this encounter Visit Diagnoses Not on filedocumented in this encounter Care Teams Briefcase Sewer Relationship Specialty Start Date End Date Rodney Padilla MD [address] [place] [place] [address] PCP - General 07/18/22 04/09/24 documented as of this encounter
--- OUTSIDE RECORDS SUMMARY | 2024-04-13 15:41 | XMS_ITS | Encounter Summary ---
Author Organization [facility] [address] Care Team Providers Care Health Services Director Name Role Phone Rodney Padilla MD Primary Care Provider Encounter Details Date Type Department Care Team (Latest Contact Info) Description 12/20/2023 2:00 PM EDT Laboratory Appointment Lab at [facility] [address] [place] [address] Type 2 diabetes mellitus without [...] 05/01/2024 11:20 AM EDT Appointment Mammography/[place] [address] Rodney Padilla MD [address] [place] [address] 05/01/2024 1:45 PM EDT Office [place] [address] Juanpablo Hernandez MD [facility] [place] [address] 05/23/2024 2:45 PM EST Clinical Support Family Medicine at [facility] [address] [place] [address] Julia Low, [facility] 01/30/2025 1:30 PM EDT Laboratory Appointment Lab at [facility] [place]ematology Oncology [address] [place] [address] 01/30/2025 3:[address] [place] [address] Arturo Cordero MD [facility] DR [place] [address] 01/30/2025 4:15 PM EDT Office Visit Hematology [place] [address] Arturo Cordero MD [facility] DR [place] [address] documented as of this encounter Procedures Procedure [...] [facility] Creatinine, Urine 75 mg/dL [facility] Urine 12/20/2023 2:28 PM EDT 12/20/2023 4:11 PM EDT Narrative Resulting Agency Comment Spec In Lab Rodney Padilla MD URINE ORDERABLES Performing Organization Address City/[facility]/ZIP Co de Phone Number [facility] [place] [address] * (ABNORMAL) Hemoglobin A1c (12/20/2023 2:14 PM [...] Mellitus, Diabetes Care 2013; 36: Suppl. 1, S67-84 Estimated Average Glucose 222 mg/dL [facility] Blood 12/20/2023 2:14 PM EDT 12/20/2023 4:37 PM EDT Narrative Resulting Agency Comment Spec In Lab Rodney Padilla MD CHEMISTRY ORDERABLE S Performing Organization Address City/[facility]/RUST Co de Phone Number [facility] [place] [address] documented in this encounter Visit Diagnoses Diagnosis Type 2 diabetes mellitus without long-term current use of insulin documented in this encounter Care Teams Health Services Director Relationship Specialty Start Date End Date Rodney Padilla MD [address] [place] [address] PCP - General 07/18/22 04/09/24 documented as of this encounter
--- OUTSIDE RECORDS SUMMARY | 2024-04-13 15:41 | XMS_ITS | Encounter Summary ---
Author Organization [facility] [place] [address] Care Team Providers Care Supervisor Estimator And Drafter Name Role Phone Rodney Padilla MD Primary Care Provider [phone]- [phone] Reason for Visit * Reason Comments Follow-up Abdominal discomfort Encounter Details Date Type Department Care Team (Latest Contact Info) Description 09/19/2023 10:30 AM EDT Office Visit Family Medicine at [facility] [address] [place] [address] Rodney Padilla MD [address] [facility] [place] [address] Severe obesity; Chronic obstructive pulmonary disease, unspecified COPD type; Bipolar affective disorder in remission; Adrenal mass; Diabetic polyneuropathy associated with type 2 diabetes mellitus; 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 (Patient not taking: Reported on 08/29/2023) Blood-Glucose Sensor (Dexcom G7 Sensor) Device 1 Device by [facility].(Non-Drug; Combo Route) route every10 days. (Patient not [...] each 3 inhalational spacing device (Hesham Aerosol [place] Enhancer) Spacer 1 each by Misc.(Non-Drug; Combo [...] tablet 5 fluticasone propionate (Flonase) 50 mcg/actuation [place], Suspension 1 spray by Each Nare route [...] patient/family/caregiver Referring and communicating with other health care attendant Documenting clinical information in the electronic or other health record Independently interpreting results Care coordination documented in this encounter Plan of Treatment Upcoming Encounters Date Type Department Care Team (Late st Contact Info) Description 05/01/2024 11:20 AM EDT Appointment Mammography/[place] [address] Rodney Padilla MD [address] [facility] [place] [address] 05/01/2024 1:45 PM EDT Office [place] [address] Juanpablo Hernandez MD [facility] [place] [address] 05/23/2024 2:45 PM EST Clinical Support Family Medicine at [facility] [address] [place] [address] Julia Low [facility] 01/30/2025 1:30 PM EDT Laboratory Appointment Lab at [facility] Hematology Oncology [address] [place] [address] 01/30/2025 3:[address] [place] [address] Arturo Cordero MD [facility] DR HEMATOLOGY [place] [address] 01/30/2025 4:15 PM EDT Office Visit Hematology [place] [address] Arturo Cordero MD [facility] DR HEMATOLOGY AND ONCOLOGY [place], [place] [phone] documented as of this encounter Results * (ABNORMAL) Hemoglobin A1c (09/19/2023 11:24 AM EDT) Hemoglobin A1c 9.2(H) 4.3 - 5.6 % [facility] Comment: Reference Range: 4.3 - [...] Mellitus, Diabetes Care 2013; 36: Suppl. 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
--- OUTSIDE RECORDS SUMMARY | 2024-04-13 15:41 | XMS_ITS | Encounter Summary ---
Author Organization [facility] Address [facility] [place] [address] Care Team Providers Care Wood Crafter Name Role Phone Rodney Padilla MD Primary Care Provider +1- [phone] Encounter Details Date Type Department Care Team [...] 05/01/2024 11:20 AM EDT Appointment Mammography/[place] [address] Rodney Padilla MD [address] [place] [address] 05/01/2024 1:45 PM EDT Office [place] [address] Juanpablo Hernandez MD [facility] [place] [address] 05/23/2024 2:45 PM EST Clinical Support Family Medicine at [facility] [address] [place] [address] Julia Low [facility] 01/30/2025 1:30 PM EDT Laboratory Appointment Lab at [facility] Hematology Oncology [address] [place] [address] 01/30/2025 3:[address] [place] [address] Arturo Cordero MD [facility] DR [place] [address] 01/30/2025 4:15 PM EDT Office Visit Hematology [place] [address] Arturo Cordero MD [facility] DR [place] [address] documented as of this encounter Visit Diagnoses Not on filedocumented in this encounter Care Teams Wood Crafter Relationship Specialty Start Date End Date Rodney Padilla MD [address] [place] [place] [address] PCP - General 07/18/22 04/09/24 documented as of this encounter
--- OUTSIDE RECORDS SUMMARY | 2024-04-13 15:41 | XMS_ITS | Encounter Summary ---
Author Organization [facility] Address [facility] [address] Care Team Providers Care Concrete Floater Name Role Phone Rodney Padilla MD Primary Care Provider +1- [phone] Encounter Details Date Type Department Care Team [...] 05/01/2024 11:20 AM EDT Appointment Mammography/[place] [address] Rodney Padilla MD [address] [place] [address] 05/01/2024 1:45 PM EDT Office [place] [address] Juanpablo Hernandez MD [facility] [place] [address] 05/23/2024 2:45 PM EST Clinical Support Family Medicine at [facility] [address] [place] [address] Julia Low [facility] 01/30/2025 1:30 PM EDT Laboratory Appointment Lab at [facility] [place] [address] [place] [address] 01/30/2025 3:[address] [place] [address] Arturo Cordero MD [facility] [place] [address] 01/30/2025 4:15 PM EDT Office Visit Hematology [place] [address] Arturo Cordero MD [facility] [address] [place] [address] documented as of this encounter Visit Diagnoses Not on filedocumented in this encounter Care Teams Concrete Floater Relationship Specialty Start Date End Date Rodney Padilla MD [address] [place] [place] [address] PCP - General 07/18/22 04/09/24 documented as of this encounter
--- OUTSIDE RECORDS SUMMARY | 2024-04-13 15:41 | XMS_ITS | Encounter Summary ---
Author Organization [facility] [place] [address] Care Team Providers Care Freelance Recruiter Name Role Phone Rodney Padilla MD Primary Care Provider +1- [phone] Reason for Visit * Reason Comments Medication Refill Encounter Details Date Type Department Care Team (Late st Contact Info) Description 08/27/2023 Refill Family Medicine at [facility] [address] [place] [address] Rodney Padilla MD [address] [facility] [place] [address] Mixed hyperlipidemia Social History Tobacco Use Types [...] 05/01/2024 11:20 AM EDT Appointment Mammography/[place] [address] Rodney Padilla MD [address] [place] [address] 05/01/2024 1:45 PM EDT Office [place] [address] Juanpablo Hernandez MD [facility] [place] [address] 05/23/2024 2:45 PM EST Clinical Support [facility] Medicine at [facility] [address] [place] [address] Julia Low, [facility] 01/30/2025 1:30 PM EDT Laboratory Appointment Lab at [facility] [place] Oncology [address] [place] [address] 01/30/2025 3:[address] [place] [address] Arturo Cordero MD [facility] DR HEMATOLOGY AND ONCOLOGY [place], [place] [address] 01/30/2025 4:15 PM EDT Office Visit H[place]ology [place] [address] Arturo Cordero MD [facility] DR HEMATOLOGY [place] [address] documented as of this encounter Visit Diagnoses Diagnosis Mixed hyperlipidemia documented in this encounter Care Teams Freelance Recruiter Relationship Specialty Start Date End Date Rodney Padilla MD [address] [place] [address] PCP - General 07/18/22 04/09/24 documented as of this encounter
--- OUTSIDE RECORDS SUMMARY | 2024-04-13 15:41 | XMS_ITS | Encounter Summary ---
[place] [address] Care Team Providers Care Trestle Mainternance Laborer Name Role Phone Rodney Padilla MD Primary Care Provider +1- [phone] Reason for Referral * Consultation (Routine) - Closed Specialty Diagnoses / Procedures Referred By Gonzalez kumari Referred To Contact Pulmonology Diagnoses Interstitial lung disease Rodney Padilla MD [address] [place] [address] [facility] [place] Pulmonology [address] [place] [phone] Referral ID Status Reason Start Date Expiration Date V isits Requested Visits Authorized [id number] Closed Consult, Test & Treat 08/21/2023 08/20/2024 1 1 Encounter Details Date Type Department Care Team (Late st Contact Info) Description 08/21/2023 Orders Only Family Medicine at [address] [place] [phone] Rodney Padilla MD [address] [place] [address] Interstitial lung disease Social History [...] 05/01/2024 11:20 AM EDT Appointment Mammography/[place] [address] Rodney Padilla MD [address] [facility] [place], [place] [address] 05/01/2024 1:45 PM EDT Office [place] [address] Juanpablo Hernandez MD [facility] [place] [address] 05/23/2024 2:45 PM EST Clinical Support Family Medicine at [facility] [address] [place] [address] Julia Low, [facility] 01/30/2025 1:30 PM EDT Laboratory Appointment Lab at [facility] Hematology Oncology [address] [place] [address] 01/30/2025 3:[address] [place] [address] Arturo Cordero MD [facility] DR [place] [address] 01/30/2025 4:15 PM EDT Office Visit Hematology [place] [address] Arturo Cordero MD [facility] DR [place] [address] Scheduled Referrals Name Type Priority Associated Diagnoses Order Schedule Referral to Pulmonology Outpatient Referral Routine Interstitial lung disease Ordered: 08/21/2023 documented as of this encounter Visit Diagnoses Diagnosis Interstitial lung disease Postinflammatory pulmonary fibrosis documented in this encounter Care Teams Trestle Mainternance Laborer Relationship Specialty Start Date End Date Rodney Padilla MD [address] [place] [place] [address] PCP - General 07/18/22 04/09/24 documented as of this encounter
--- OUTSIDE RECORDS SUMMARY | 2024-04-13 15:41 | XMS_ITS | Encounter Summary ---
Author Organization [facility] [place] [address] Care Team Providers Care Planetarium Sky Show Technician Name Role Phone Rodney Padilla MD Primary Care Provider +1- [phone] Reason for Visit * Reason Comments Melanoma Melanoma of conjunct ana luisa OS Encounter Details Date Type Department Care Team (Late st Contact Info) Description 11/29/2023 2:45 PM EDT Office [place] [address] Juanpablo Hernandez MD [facility] [place] [address] Malignant melanoma of conjunctiva, left; Type 2 [...] 05/01/2024 11:20 AM EDT Appointment Mammography/[place] [address] Rodney Padilla MD [address] [facility] [place], [place] [address] 05/01/2024 1:45 PM EDT Office [place] [address] Juanpablo Hernandez MD [facility] [place] [address] 05/23/2024 2:45 PM EST Clinical Support Family Medicine at [facility] [address] [place] [address] Julia Low, [facility] 01/30/2025 1:30 PM EDT Laboratory Appointment Lab at [facility] [place]ematology Oncology [address] [place] [address] 01/30/2025 3:[address] [place] [address] Arturo Cordero MD [facility] DR HEMATOLOGY [place] [address] 01/30/2025 4:15 PM EDT Office Visit Hematology [place] [address] Arturo Cordero MD [facility] DR HEMATOLOGY [place] [address] documented as of this encounter Visit Diagnoses Diagnosis Malignant melanoma of conjunctiva, left Type 2 diabetes mellitus without long-term current use of insulin documented in this encounter Care Teams Planetarium Sky Show Technician Relationship Specialty Start Date End Date Rodney Padilla MD [address] [place] [address] PCP - General 07/18/22 04/09/24 documented as of this encounter
--- OUTSIDE RECORDS SUMMARY | 2024-04-13 15:41 | XMS_ITS | Encounter Summary ---
Author Organization [facility] [place] [address] Care Team Providers Care Messaging Architect Name Role Phone Rodney Padilla MD Primary Care Provider Reason for Referral * Diagnostic Test (Routine) - Closed Specialty Diagnoses / Procedures Referred By Contac t Referred To Contact Radiology Diagnoses Malignant melanoma of conjunctiva, left Procedures CT Neck Soft Tissue w Contrast (Generic) Tee Lara MD [facility] DR HEMATOLOGY/[place] [address] [facility] [place] [address] Referral ID Status Reason Start Date Expiration Date V isits Requested Visits Authorized [id number] Closed Specialty Service Requested 08/03/2023 01/31/2025 1 1 * Diagnostic Test (Routine) - Closed Specialty Diagnoses / Procedures Referred By Contac t Referred To Contact Radiology Diagnoses Malignant melanoma of conjunctiva, left Procedures CT Chest Abdomen Pelvis w Contrast (Generic) Tee Lara MD [facility] DR HEMATOLOGY/[place] [address] [facility] [place] [address] Referral ID Status Reason Start Date Expiration Date V isits Requested Visits Authorized [id number] Closed Specialty Service Requested 08/03/2023 01/31/2025 1 1 Reason for Visit * Diagnostic Test (Routine) - Closed Specialty Diagnoses / Procedures Referred By Contac t Referred To Contact Radiology Diagnoses Malignant melanoma of conjunctiva, left Procedures CT Chest Abdomen Pelvis w Contrast (Generic) Tee Lara MD [facility] DR HEMATOLOGY/[place] [address] [facility] [place] [address] Referral ID Status Reason Start Date Expiration Date V isits Requested Visits Authorized [id number] Closed Specialty Service Requested 08/03/2023 01/31/2025 1 1 Encounter Details Date Type Department Care Team (Latest Contact Info) Description 02/01/2024 8:04 AM EDT - 02/01/2024 8:11 AM EDT Hospital [place] [address] Arturo Cordero MD [facility] DR HEMATOLOGY [place] [address] Malignant melanoma of conjunctiva, left [...] 11 10/24/2023 fluticasone propionate (Flonase) 50 mcg/actuation [place], Suspension SPRAY 1 SPRAY IN EACH NOSTRIL TWO TIMES A DAY 48 mL 3 09/28/2023 lamoTRIgine (LaMICtal) 150 mg tablet Take 150 mg by mouth Daily at Noon. 08/17/2023 Blood-Glucose Meter,Continuous (Dexcom G7 Automotive Lube Technician) MiscIndications:Type 2 diabetes mellitus with hyperglycemia, without long-term current use of insulin 1 Device by [facility].(Non-Drug; Combo Route) route continuous. 08/18/2023 Blood-Glucose Sensor (Dexcom G7 Sensor) DeviceIndications:Typ e 2 diabetes mellitus with hyperglycemia, without long-term current use of insulin 1 Device by [facility].(Non-Drug; Combo Route) route every 10 days. 3 each 11 08/18/2023 inhalational spacing device (Hesham Aerosol Rhea Enhancer) SpacerIndications:Chr onic obstructive pulmonary disease, unspecified COPD type 1 each by [facility].(Non-Drug; Combo Route) route as needed. [...] 05/01/2024 11:20 AM EDT Appointment Mammography/[place] [address] Rodney Padilla MD [address] [place] [address] 05/01/2024 1:45 PM EDT Office [place] [address] Juanpablo Hernandez MD [facility] [place] [address] 05/23/2024 2:45 PM EST Clinical Support [facility] Medicine at [facility] [address] [place] [address] Julia Low [facility] 01/30/2025 1:30 PM EDT Laboratory Appointment Lab at [facility] [place] [address] [place] [address] 01/30/2025 3:[address] [place] [address] Arturo Cordero MD [facility] DR HEMATOLOGY [place] [address] 01/30/2025 4:15 PM EDT Office Visit Hematology [place] [address] Arturo Cordero MD [facility] DR HEMATOLOGY [place] [address] documented as of this encounter Procedures Procedure [...] (Generic) (02/01/2024 10:24 AM EDT) WORKSTATION ID [id number] RAD Anatomical Region Laterality Modality Neck, Head [...] who have questions please contact the health patient care director that requested your imaging first. [...] patients who have questions please contactthe health patient care director that requested your imaging first. Electronically signed by: Dipika Palacios [facility]([phone]), at 02/02/2024 4:32 PM Arturo Cordero MD IMG CT ORDERABLES * CT Chest Abdomen Pelvis w Contrast (Generic) (02/01/2024 10:24 AM EDT) WORKSTATION ID [id number] RAD Anatomical Region Laterality Modality Abdomen, Pelvis [...] who have questions please contact the health patient care director that requested your imaging first. ? Electronically signed by: Leo Camilo MD, [facility] ([phone]), at 02/02/2024 9:52 AM Narrative 02/02/2024 9:52 [...] patients who have questions please contactthe health patient care director that requested your imaging first. Electronically signed by: Leo Camilo MD, [facility]([phone]), at 02/02/2024 9:52 AM Arturo Cordero MD [...] mLs documented in this encounter Care Teams Messaging Architect Relationship Specialty Start Date End Date Rodney Padilla MD [address] [place] [address] PCP - General 07/18/22 04/09/24 documented as of this encounter
--- OUTSIDE RECORDS SUMMARY | 2024-04-13 15:41 | XMS_ITS | Encounter Summary ---
Author Organization [facility] Address [facility] [place] [address] Care Team Providers Care Network Control Operator Name Role Phone Rodney Padilla MD Primary Care Provider +1- [phone] Encounter Details Date Type Department Care Team [...] 05/01/2024 11:20 AM EDT Appointment Mammography/[place] [address] Rodney Padilla MD [address] [place] [place] [address] 05/01/2024 1:45 PM EDT Office [place] [address] Juanpablo Hernandez MD [facility] [place] [address] 05/23/2024 2:45 PM EST Clinical Support Family Medicine at [facility] [address] [place] [address] Julia Low [facility] 01/30/2025 1:30 PM EDT Laboratory Appointment Lab at [facility] Hematology Oncology [address] [place] [address] 01/30/2025 3:[address] [place] [address] Arturo Cordero MD [facility] [place] [address] 01/30/2025 4:15 PM EDT Office Visit Hematology [place] [address] Arturo Cordero MD [facility] [place] [address] documented as of this encounter Visit Diagnoses Not on filedocumented in this encounter Care Teams Network Control Operator Relationship Specialty Start Date End Date Rodney Padilla MD [address] [place] [address] PCP - General 07/18/22 04/09/24 documented as of this encounter
--- OUTSIDE RECORDS SUMMARY | 2024-04-13 15:41 | XMS_ITS | Encounter Summary ---
Author Organization [facility] Address [facility] [place] [address] Care Team Providers Care Personal Lines Account Manager Name Role Phone Rodney Padilla MD Primary Care Provider +1- [phone] Encounter Details Date Type Department Care Team [...] 05/01/2024 11:20 AM EDT Appointment Mammography/[place] [address] Rodney Padilla MD [address] [place] [address] 05/01/2024 1:45 PM EDT Office [place] [address] Juanpablo Hernandez MD [facility] [place] [address] 05/23/2024 2:45 PM EST Clinical Support Family Medicine at [facility] [address] [place] [address] Julia Low [facility] 01/30/2025 1:30 PM EDT Laboratory Appointment Lab at [facility] Hematology Oncology [address] [place] [address] 01/30/2025 3:[address] [place] [address] Arturo Cordero MD [facility] DR [place] [address] 01/30/2025 4:15 PM EDT Office Visit Hematology [place] [address] Arturo Cordero MD [facility] DR [place] [address] documented as of this encounter Visit Diagnoses Not on filedocumented in this encounter Care Teams Personal Lines Account Manager Relationship Specialty Start Date End Date Rodney Padilla MD [address] [place] [place] [address] PCP - General 07/18/22 04/09/24 documented as of this encounter
--- OUTSIDE RECORDS SUMMARY | 2024-04-13 15:41 | XMS_ITS | Encounter Summary ---
Author Organization [facility] [place] [address] Care Team Providers Care Tunnel Heading Supervisor Name Role Phone Rodney Padilla MD Primary Care Provider Reason for Visit * Reason Comments Medication Refill Encounter Details Date Type Department Care Team (Late st Contact Info) Description 09/25/2023 Refill Family Medicine at [facility] [address] [place] [address] Rodney Padilla MD [address] [facility] [place] [address] Social History Tobacco Use Types Packs/Day Years [...] Disp Refills fluticasone propionate (Flonase) 50 mcg/actuation [place], Suspension [Pharmacy Med Name: FLUTICASONEPROP 50 MCG [...] 05/01/2024 11:20 AM EDT Appointment Mammography/[place] [address] Rodney Padilla MD [address] [place] [address] 05/01/2024 1:45 PM EDT Office [place] [address] Juanpablo Hernandez MD [facility] [place] [address] 05/23/2024 2:45 PM EST Clinical Support Family Medicine at [facility] [address] [place] [address] Julia Low [facility] 01/30/2025 1:30 PM EDT Laboratory Appointment Lab at [facility] Hematology Oncology [address] [place] [address] 01/30/2025 3:[address] [place] [address] Arturo Cordero MD [facility] DR HEMATOLOGY [place] [address] 01/30/2025 4:15 PM EDT Office Visit Hematology [place] [address] Arturo Cordero MD [facility] DR HEMATOLOGY [place] [address] documented as of this encounter Visit Diagnoses Not on filedocumented in this encounter Care Teams Tunnel Heading Supervisor Relationship Specialty Start Date End Date Rodney Padilla MD [address] [place] [address] PCP - General 07/18/22 04/09/24 documented as of this encounter
--- OUTSIDE RECORDS SUMMARY | 2024-04-13 15:41 | XMS_ITS | Encounter Summary ---
Author Organization [facility] Address [facility] [place] [address] Care Team Providers Care Health Consultant Name Role Phone Rodney Padilla MD Primary Care Provider +1- [phone] Encounter Details Date Type Department Care Team [...] 05/01/2024 11:20 AM EDT Appointment Mammography/[place] [address] Rodney Padilla MD [address] [place] [address] 05/01/2024 1:45 PM EDT Office [place] [address] Juanpablo Hernandez MD [facility] [place] [address] 05/23/2024 2:45 PM EST Clinical Support Family Medicine at [facility] [address] [place] [address] Julia Low [facility] 01/30/2025 1:30 PM EDT Laboratory Appointment Lab at [facility] Hematology Oncology [address] [place] [address] 01/30/2025 3:[address] [place] [address] Arturo Cordero MD [facility] DR [place] [address] 01/30/2025 4:15 PM EDT Office Visit Hematology [place] [address] Arturo Cordero MD [facility] DR [place] [address] documented as of this encounter Visit Diagnoses Not on filedocumented in this encounter Care Teams Health Consultant Relationship Specialty Start Date End Date Rodney Padilla MD [address] [place] [address] PCP - General 07/18/22 04/09/24 documented as of this encounter
--- OUTSIDE RECORDS SUMMARY | 2024-04-13 15:41 | XMS_ITS | Encounter Summary ---
Author Organization [facility] Address [facility] [place] [place] [address] Care Team Providers Care Director Of Litigation Name Role Phone Rodney Padilla MD Primary Care Provider +1- [phone] Encounter Details Date Type Department Care Team [...] 05/01/2024 11:20 AM EDT Appointment Mammography/[place] [address] Rodney Padilla MD [address] [place] [place] [address] 05/01/2024 1:45 PM EDT Office [place] [address] Juanpablo Hernandez MD [facility] [place] [address] 05/23/2024 2:45 PM EST Clinical Support Family Medicine at [facility] [address] [place] [address] Julia Low [facility] 01/30/2025 1:30 PM EDT Laboratory Appointment Lab at [facility] Hematology Oncology [address] [place] [address] 01/30/2025 3:[address] [place] [address] Arturo Cordero MD [facility] [place] [address] 01/30/2025 4:15 PM EDT Office Visit [place]ology [place] [address] Arturo Cordero MD [facility] [place] [address] documented as of this encounter Visit Diagnoses Not on filedocumented in this encounter Care Teams Director Of Litigation Relationship Specialty Start Date End Date Rodney Padilla MD [address] [place] [address] PCP - General 07/18/22 04/09/24 documented as of this encounter
--- OUTSIDE RECORDS SUMMARY | 2024-04-13 15:41 | XMS_ITS | Encounter Summary ---
Author Organization [facility] Address [facility] [address] Care Team Providers Care Plaster Die Maker Name Role Phone Rodney Padilla MD Primary Care Provider +1- [phone] Reason for Visit * Reason Comments Diabetes Encounter Details Date Type Department Care Team (Late st Contact Info) Description 01/01/2024 11:00 AM EDT TH Visit (TeleHealth) Family Medicine at [facility] [address] [place] [address] Julia Low, [facility] Type 2 diabetes mellitus without long-term [...] this encounter Progress Notes * Julia Low [facility] - 01/01/2024 11:00 AM EDT Images [...] any of the following conditions: Yes [x] IN/Stroke/CAD [] Retinopathy [] CHF [x] Neuropathy [] [...] - asa 81 mg and clopidogrel -Uses [facility] -Prefers oral therapies to injections but [...] performed regularly using Dexcom CGM G7 Uses [employer] testing supplies Interested in Dexcom G7, report approved by insurance. Received Dexcom G7 CGM through [employer]. Has not set up Prior Averages: 08/26/21 09/09/21 09/24/21 11/14/21 11/03/22 12/01/22 01/03/23 08/18/23 10/26/23 Daily Avg 157 168 131 138 175 153 176 211 152 eA1c 8.88375 8.46 7.20 7.44 8.7 7.95 8.75 9.96 [...] or during use. 100 each 3 fluticasone wjhccxo-jlkbkjpyooar-otmoybexxj (Trelegy Ellipta) 200-62.5-25 mcg Inhale 1 puff into the lungs daily. Rinse mouth after use 1 each 11 fluticasone propionate (Flonase) 50 mcg/actuation [place], Suspension SPRAY 1 SPRAY IN EACH NOSTRIL TWO TIMES A DAY 48 mL 3 lamoTRIgine (LaMICtal) 150 mg tablet Take 150 mg by mouth Daily at Noon. simvastatin (Zocor) 10 mg tablet TAKE ONE TABLET BY MOUTH EVERY DAY 90 tablet 1 Blood-Glucose Meter,Continuous (Dexcom G7 Rental Sales Representative) Misc 1 Device by Mis.(Non- Drug; Combo Route) route continuous. Blood-Glucose Sensor (Dexcom G7 Sensor) Device 1 Device by Misc.(Non-Drug; Combo Route) route every10 days. 3 each 11 Lantus Solostar U-100 Insulin 100 unit/mL (3 mL) pen Inject 18 Units subcutaneously nightly. Inject2-20 units based on BG Indications: type 2 diabetes mellitus inhalational spacing device (Hesham Aerosol Riley Enhancer) Spacer 1 each by Misc.(Non-Drug; Combo [...] provider review and follow up. Julia Low, [facility] 01/01/24 Total time spent: 45 minutes documented in this encounter Plan of Treatment Upcoming Encounters Date Type Department Care Team (Late st Contact Info) Description 05/01/2024 11:20 AM EDT Appointment Mammography/[place] [address] Rodney Padilla MD [address] [place] [address] 05/01/2024 1:45 PM EDT Office [place] [address] Juanpablo Hernandez MD [facility] [place] [address] 05/23/2024 2:45 PM EST Clinical Support Family Medicine at [facility] [address] [place] [address] Julia Low RPH 01/30/2025 1:30 PM EDT Laboratory Appointment Lab at [facility] Hematology Oncology [address] [place] [address] 01/30/2025 3:[address] [place] [address] Arturo Cordero MD [facility] [place]AT[place] [address] 01/30/2025 4:15 PM EDT Office Visit Hematology [place] [address] Arturo Cordero MD [facility] [place] [address] documented as of this encounter Visit Diagnoses Diagnosis Type 2 diabetes mellitus without long-term current use of insulin documented in this encounter Care Teams Plaster Die Maker Relationship Specialty Start Date End Date Rodney Padilla MD [address] [place] [address] PCP - General 07/18/22 04/09/24 documented as of this encounter
--- OUTSIDE RECORDS SUMMARY | 2024-04-13 15:41 | XMS_ITS | Encounter Summary ---
Author Organization [facility] Address [facility] [place] [address] Care Team Providers Care Wort Extractor Name Role Phone Rodney Padilla MD Primary Care Provider +1- [phone] Encounter Details Date Type Department Care Team [...] 05/01/2024 11:20 AM EDT Appointment Mammography/[place] [address] Rodney Padilla MD [address] [place] [address] 05/01/2024 1:45 PM EDT Office [place] [address] Juanpablo Hernandez MD [facility] [place] [address] 05/23/2024 2:45 PM EST Clinical Support Family Medicine at [facility] [address] [place] [address] Julia Low [facility] 01/30/2025 1:30 PM EDT Laboratory Appointment Lab at [facility] Hematology Oncology [address] [place] [address] 01/30/2025 3:[address] [place] [address] Arturo Coredro MD [facility] DR [place] [address] 01/30/2025 4:15 PM EDT Office Visit Hematology [place] [address] Arturo Cordero MD [facility] DR [place] [address] documented as of this encounter Visit Diagnoses Not on filedocumented in this encounter Care Teams Wort Extractor Relationship Specialty Start Date End Date Rodney Padilla MD [address] [place] [address] PCP - General 07/18/22 04/09/24 documented as of this encounter
--- OUTSIDE RECORDS SUMMARY | 2024-04-13 15:41 | XMS_ITS | Encounter Summary ---
Author Organization [facility] Address [facility] [place] [address] Care Team Providers Care Business Analytics Intern Name Role Phone Rodney Padilla MD Primary Care Provider +1- [phone] Reason for Visit * Reason Comments Diabetes Encounter Details Date Type Department Care Team (Late st Contact Info) Description 10/27/2023 9:45 AM EDT TH Visit (TeleHealth) Family Medicine at [facility] [address] [place] [address] Julia Low, [facility] Type 2 diabetes mellitus without long-term [...] encounter Progress Notes * Julia Low [facility] - 10/27/2023 9:45 AM EDT Clinical Pharmacist [...] any of the following conditions: Yes [x] NM/Stroke/CAD [] Retinopathy [] CHF [x] Neuropathy [] [...] money, job, social) 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 1-2 x daily. Uses [employer] testing supplies Interested in Dexcom G7, report approved by insurance. Received Dexcom G7 CGM through [employer]. Has not set up Offered clinic appt to set up but pt declined as she will not be in the area for a month but she agrees to reach out to local district plant superintendent who assisted her in the past Before [...] 186 191 176 Daily Avg 152 eA1c 7.484175 Prior Averages: 08/26/21 09/09/21 09/24/21 11/14/21 11/03/22 12/01/22 01/03/23 08/18/23 Daily Avg 157 168 131 138 175 153 176 211 eA1c 8.27671 8.46 7.20 7.44 8.7 7.95 8.75 9.96 [...] or during use. 100 each 3 fluticasone yawaopp-gjztqjnexnmf-lckzniwfah (Trelegy Ellipta) 200-62.5-25 mcg Inhale 1 puff into the lungs daily. Rinse mouth after use 1 each 11 fluticasone propionate (Flonase) 50 mcg/actuation [place], Suspension SPRAY 1 SPRAY IN EACH NOSTRIL TWO TIMES A DAY 48 mL 3 lamoTRIgine (LaMICtal) 150 mg tablet Take 150 mg by mouth Daily at Noon. simvastatin (Zocor) 10 mg tablet TAKE ONE TABLET BY MOUTH EVERY DAY 90 tablet 1 Blood-Glucose Meter,Continuous (Dexcom G7 Emergency Registrar) Misc 1 Device by [facility]Non- Drug; Combo Route) route continuous. Blood-Glucose Sensor [...] mL 11 inhalational spacing device (Hesham Aerosol Boyle Enhancer) Spacer 1 each by Misc.(Non-Drug; Combo [...] 05/01/2024 11:20 AM EDT Appointment Mammography/[place] [address] Rodney Padilla MD [address] [place] [address] 05/01/2024 1:45 PM EDT Office [place] [address] Juanpablo Hernandez MD [facility] [place] [address] 05/23/2024 2:45 PM EST Clinical Support Family Medicine at [facility] [address] [place] [address] Julia Low RPH 01/30/2025 1:30 PM EDT Laboratory Appointment Lab at [facility] Hematology Oncology [address] [place] [address] 01/30/2025 3:[address] [place] [address] Arturo Cordero MD [facility] HEMATOLOGY [place] [address] 01/30/2025 4:15 PM EDT Office Visit Hematology [place] [address] Arturo Cordero MD [facility] DR HEMATOLOGY [place] [address] documented as of this encounter Visit Diagnoses Diagnosis Type 2 diabetes mellitus without long-term current use of insulin- Primary documented in this encounter Care Teams Business Analytics Intern Relationship Specialty Start Date End Date Rodney Padilla MD [address] [place] [address] PCP - General 07/18/22 04/09/24 documented as of this encounter
--- OUTSIDE RECORDS SUMMARY | 2024-04-13 15:41 | XMS_ITS | Encounter Summary ---
Author Organization [facility] [place] [address] Care Team Providers Care Farm Management Teacher Name Role Phone Rodney Padilla MD Primary Care Provider [phone]- [phone] Encounter Details Date Type Department Care Team (Late st Contact Info) Description 08/10/2023 Telephone Family Medicine at [facility] [address] [place] [phone] Rodney Padilla MD [address] [place] [address] Social History Tobacco Use Types Packs/Day Years [...] Patient identified by Full Name and with [facility] staff. Provided update that this RN would be faxing Clinic Notes documenting information they requested about patient's insulin. Previously given fax number [phone] in this message not correct when attempted to confirm withstaff. New fax number given = [phone]. Requested Clinic Notes faxed to new fax number. Reference Number = [id number] * Telephone Encounter - Ade Irene - 08/10/2023 3:02 PM EST Maryana with [facility] calling in looking for an update on this. Please call back to discuss. * Telephone Encounter - Jade Kruse MA - 08/10/2023 12:33 PM EST Copied from [facility] #[id number]. Topic: Generic Non-Symptom Based - Generic Call >> Aug 08, 2023 1:00 PM Kalie Stone wrote: Reason: DME PCP: RODNEY PADILLA Reason for Call: [employer] medical equipment sent request on 08/04 for notes to document patient using insulin, needs an addendum sent stating she uses Lantus Solostar U-100 Insulin 100 unit/mL (3 mL) pen needs more than just a medication list needs it to be in the notes, can be faxed back to fax # [phone] documented in this encounter Plan of Treatment Upcoming Encounters Date Type Department Care Team (Late st Contact Info) Description 05/01/2024 11:20 AM EDT Appointment Mammography/[place] [address] Rodney Padilla MD [address] [place] [place] [address] 05/01/2024 1:45 PM EDT Office [place] [address] Juanpablo Hernandez MD [facility] [place] [address] 05/23/2024 2:45 PM EST Clinical Support Family Medicine at [facility] [address] [place] [address] Julia Low [facility] 01/30/2025 1:30 PM EDT Laboratory Appointment Lab at [facility] Hematology Oncology [address] [place] [address] 01/30/2025 3:[address] [place] [address] Arturo Cordero MD [facility] DR HEMATOLOGY [place] [address] 01/30/2025 4:15 PM EDT Office Visit Hematology [place] [address] Arturo Cordero MD [facility] DR HEMATOLOGY [place] [address] documented as of this encounter Visit Diagnoses Diagnosis Type 2 diabetes mellitus without long-term current use of insulin documented in this encounter Care Teams Farm Management Teacher Relationship Specialty Start Date End Date Rodney Padilla MD [address] [place] [address] PCP - General 07/18/22 04/09/24 documented as of this encounter
--- OUTSIDE RECORDS SUMMARY | 2024-04-13 15:41 | XMS_ITS | Encounter Summary ---
Author Organization [facility] Address [facility] [place] [address] Care Team Providers Care Molder Machine Name Role Phone Rodney Padilla MD Primary Care Provider [phone] Encounter Details Date Type Department Care Team (Late st Contact Info) Description 11/29/2023 1:20 PM EDT Office Visit Dermatology at [facility] [address] [place] [address] Antonia Minor MD [facility] [place] [address] Multiple melanocytic nevi; Photoaging of skin; Seborrheic [...] not submit a PA), and will require osn-fz-scquyj payment at the pharmacy. - Discussed GoodRx, [...] and wound care were reviewed. #. Clavus ([place]) - Focal hyperkeratotic papule on the left [...] 1 year for FSE []Note routed to dental secretary [x]Recall placed in scheduling system []Appointment scheduled at checkout Scribe attestation: Nolberto Simmons has performed the documentation for this encounter in the presence of and acting as a scribe for Antonia Minor MD. I performed the above scribed service and agree with the accuracy of the documentation in this encounter. Reviewed and signed by: Antonia Minor MD [facility] Staff fit model: Justine Castillo MD [facility] * Justine Castillo MD - 11/29/2023 1:20 PM EDT I was the supervising physician working with the Dermatology resident, Antonia Minor MD, in the care of this Dermatology patient in person. For the purposes of billing, the resident provided the care. I have reviewed the encounter note details and level of service. JUSTINE CASTILLO MD Staff Automated Access Systems Technician Department of Dermatology [facility] documented in this encounter Plan of Treatment Upcoming Encounters Date Type Department Care Team (Late st Contact Info) Description 05/01/2024 11:20 AM EDT Appointment Mammography/[place] [address] Rodney Padilla MD [address] [place] [address] 05/01/2024 1:45 PM EDT Office [place] [address] Juanpablo Hernandez MD [facility] [place] [address] 05/23/2024 2:45 PM EST Clinical Support Family Medicine at [facility] [address] [place] [address] Julia Low [facility] 01/30/2025 1:30 PM EDT Laboratory Appointment Lab at [facility] Hematology Oncology [address] [place] [address] 01/30/2025 3:[address] [place] [address] Arturo Cordero MD [facility] [place] [address] 01/30/2025 4:15 PM EDT Office Visit Hematology [place] [address] Arturo Cordero MD [facility] [place] [address] documented as of this encounter Visit Diagnoses Diagnosis Multiple melanocytic nevi Photoaging of skin Other chronic dermatitis due to solar radiation Seborrheic keratoses, inflamed Clavus Corns and callosities Seborrheic keratoses Lentigines Other dyschromia Aranda angioma Nevus, non-neoplastic History of malignant melanoma of eye Family history of other specified malignant neoplasm documented in this encounter Care Teams Molder Machine Relationship Specialty Start Date End Date Rodney Padilla MD [address] [place] [address] PCP - General 07/18/22 04/09/24 documented as of this encounter
--- OUTSIDE RECORDS SUMMARY | 2024-04-13 15:41 | XMS_ITS | Encounter Summary ---
Author Organization [facility] [place] [address] Care Team Providers Care Black Leather Buffer Name Role Phone Rodney Padilla MD Primary Care Provider Encounter Details Date Type Department Care Team (Latest Contact Info) Description 09/19/2023 11:20 AM EDT Laboratory Appointment Lab at [facility] [address] [place] [address] Type 2 diabetes mellitus without complication, with [...] 05/01/2024 11:20 AM EDT Appointment Mammography[place] [address] Rodney Padilla MD [address] [place] [address] 05/01/2024 1:45 PM EDT [place] [address] Juanpablo Hernandez MD [facility] [place] [address] 05/23/2024 2:45 PM EST Clinical Support Family Medicine at [facility] [address] [place] [address] Julia Low [facility] 01/30/2025 1:30 PM EDT Laboratory Appointment Lab at [facility] Hematology Oncology [address] [place] [address] 01/30/2025 3:[address] [place] [place] [address] Arturo Cordero MD [facility] [address] [place] [address] 01/30/2025 4:15 PM EDT Office Visit [place] [address] Arturo Cordero MD [facility] [place] [address] documented as of this encounter Procedures Procedure Name Priority Date/Time Associated Diagnosis Comments HEMOGLOBIN A1C Routine 09/19/2023 11:24 AM EDT Type 2 diabetes mellitus without complication, with long-term current use of insulin documented in this encounter Results * (ABNORMAL) Hemoglobin A1c (09/19/2023 11:24 AM EDT) Hemoglobin A1c 9.2(H) 4.3 - 5.6 % [facility] Comment: Reference Range: 4.3 [...] Mellitus, Diabetes Care 2013; 36: Suppl. 1, S67-30 Estimated Average Glucose 217 mg/dL [facility] Blood 09/19/2023 11:2 4 AM EDT 09/19/2023 1:14 PM EDT Narrative Resulting Agency Comment Spec In Lab Rodney Padilla MD CHEMISTRY ORDERABLE S [facility] [place] [address] documented in this encounter Visit Diagnoses Diagnosis Type 2 diabetes mellitus without complication, with long-term current use of insulin documented in this encounter Care Teams Black Leather Buffer Relationship Specialty Start Date End Date Rodney Padilla MD [address] [place] [address] PCP - General 07/18/22 04/09/24 documented as of this encounter
--- OUTSIDE RECORDS SUMMARY | 2024-04-13 15:41 | XMS_ITS | Encounter Summary ---
Author Organization [facility] Address One [facility] [place] [address] Care Team Providers Care Tie Carrier Name Role Phone Rodney Padilla MD Primary Care Provider +1- [phone] Reason for Visit * Reason Comments Diabetes Encounter Details Date Type Department Care Team (Late st Contact Info) Description 08/18/2023 9:45 AM EST Clinical Support Family Medicine at [facility] [address] [place] [address] Julia Low, 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 3 x weekly. Uses [employer] testing supplies Interested in Dexcom G7, report approved by insurance. Needs to call [employer] [facility] [place] an [place] Before Brkfast After Brkfast Before Lunch After Lunch Before Supper 5-b 260 6-Aug 260 167 7-Aug 218 217 212 8-Aug 177 192 185 9-Aug 219 AM PHI PM Average 205 205 260 219 167 Lowest 177 192 260 185 167 Highest 219 217 260 260 167 Daily Avg 211 eA1c 9.62308 Prior Averages: 08/26/21 09/09/21 09/24/21 11/14/21 11/03/22 12/01/22 01/03/23 Daily Avg 157 168 131 138 175 153 176 eA1c 8.36459 8.46 7.20 7.44 8.7 7.95 8.75 Acute [...] diabetes mellitus 3 mL 11 Blood-Glucose Sensor ([employer] G7 Sensor) Device 1 Device by [facility].(Non-Drug; Combo Route) route every10 days. 3 each 11 lamoTRIgine (LaMICtal) 100 mg tablet Take 1.5 tablets by mouth daily. 90 tablet 3 umeclidinium-vilanteroL (Anoro Ellipta) 62.5-25 mcg/actuation Disk with Device Inhale 1 Inhalation into the lungs daily. 3 each 3 inhalational spacing device (Hesham Aerosol Parker Enhancer) Spacer 1 each by [facility].(Non-Drug; Combo Route) route as needed. 1 each [...] tablet 5 fluticasone propionate (Flonase) 50 mcg/actuation [place], Suspension 1 spray by Each Nare route [...] of insulin - Blood-Glucose Meter,Continuous (Dexcom G7 Crucible Packer) Misc; 1 Device by Misc.(Non-Drug; Combo Route) [...] 05/01/2024 11:20 AM EDT Appointment Mammography/[place] [address] Rodney Padilla MD [address] [place] [address] 05/01/2024 1:45 PM EDT Office [place] [address] Juanpablo Hernandez MD [facility] [place] [address] 05/23/2024 2:45 PM EST Clinical Support Family Medicine at [facility] [address] [place] [address] Julia Low RPH 01/30/2025 1:30 PM EDT Laboratory Appointment Lab at [facility] Hematology Oncology [address] [place] [address] 01/30/2025 3:[address] [place] [address] Arturo Cordero MD [facility] [address] [place] [address] 01/30/2025 4:15 PM EDT Office Visit Hematology [place] [address] Arturo Cordero MD [facility] [place] [address] documented as of this encounter Visit Diagnoses Diagnosis Type 2 diabetes mellitus without long-term current use of insulin- Primary documented in this encounter Care Teams Tie Carrier Relationship Specialty Start Date End Date Rodney Padilla MD [address] [place] [place] [address] PCP - General 07/18/22 04/09/24 documented as of this encounter
--- OUTSIDE RECORDS SUMMARY | 2024-04-13 15:42 | XMS_ITS | Encounter Summary ---
Author Organization [facility] Address [facility] [place] [address] Care Team Providers Care Cattle Brander Name Role Phone Rodney Padilla MD Primary Care Provider +1- [phone] Reason for Visit * Reason Comments Medication Refill Encounter Details Date Type Department Care Team (Late st Contact Info) Description 02/26/2023 Refill Family Medicine at [facility] [address] [place] [address] Tamera Khan APRN [facility] [address] [facility] [address] Type 2 diabetes mellitus with hyperglycemia, without [...] AM EDT Appointment Mammography/[place] [address] Rodney Padilla MD [address] [place] [address] 05/01/2024 1:45 PM EDT Office [place] [address] Juanpablo Hernandez MD [facility] [place] [address] 05/23/2024 2:45 PM EST Clinical Support [facility] Medicine at [facility] [address] [place] [address] Julia Low [facility] 01/30/2025 1:30 PM EDT Laboratory Appointment Lab at [facility] [place]ematology Oncology [address] [place] [address] 01/30/2025 3:[address] [place] [address] Arturo Cordero MD [facility] DR HEMATOLOGY [place] [address] 01/30/2025 4:15 PM EDT Office Visit Hematology [place] [address] Arturo Cordero MD [facility] DR HEMATOLOGY [place] [address] documented as of this encounter Visit Diagnoses Diagnosis Type 2 diabetes mellitus with hyperglycemia, without long-term current use of insulin documented in this encounter Care Teams Cattle Brander Relationship Specialty Start Date End Date Rodney Padilla MD [address] [place] [address] PCP - General 07/18/22 04/09/24 documented as of this encounter
--- OUTSIDE RECORDS SUMMARY | 2024-04-13 15:42 | XMS_ITS | Encounter Summary ---
Author Organization [facility] Address [facility] [place] [address] Care Team Providers Care Cyber Defense Analyst Name Role Phone Rodney Padilla MD Primary Care Provider +1- [phone] Reason for Visit * Reason Onset Date Comments Medication Refill 03/21/2023 Encounter Details Date Type Department Care Team (Late st Contact Info) Description 03/21/2023 Refill Family Medicine at [facility] [address] [place] [address] Luis E Narayan MD [facility] [address] [facility] [address] Essential hypertension Social History Tobacco Use Types [...] AM EDT Appointment Mammography/[place] [address] Rodney Padilla MD [address] [place] [address] 05/01/2024 1:45 PM EDT Office [place] [address] Juanpablo Hernandez MD [facility] [address] 05/23/2024 2:45 PM EST Clinical Support Family Medicine at [facility] [address] [place] [address] Julia Low [facility] 01/30/2025 1:30 PM EDT Laboratory Appointment Lab at [facility] Hematology Oncology [address] [place] [address] 01/30/2025 3:[address] [place] [address] Arturo Cordero MD [facility] DR HEMATOLOGY AND ONCOLOGY [place], [place] [address] 01/30/2025 4:15 PM EDT Office Visit Hematology [place] [address] Arturo Cordeor MD [facility] DR HEMATOLOGY [place] [address] documented as of this encounter Visit Diagnoses Diagnosis Essential hypertension Unspecified essential hypertension documented in this encounter Care Teams Cyber Defense Analyst Relationship Specialty Start Date End Date Rodney Padilla MD [address] [place] [address] PCP - General 07/18/22 04/09/24 documented as of this encounter
--- OUTSIDE RECORDS SUMMARY | 2024-04-13 15:42 | XMS_ITS | Encounter Summary ---
Author Organization [facility] Address [place] [address] Care Team Providers Care Fryline Attendant Name Role Phone Rodney Padilla MD Primary Care Provider +1- [phone] Reason for Visit * Reason Comments Procedure Knee injection for R t knee Encounter Details Date Type Department Care Team (Late st Contact Info) Description 02/23/2023 3:00 PM EDT Procedure visit Family Medicine at [facility] [address] [place] [phone] Shyla Barbosa MD [address] [facility] [place] [address] Chronic pain of right knee; Type 2 [...] 05/01/2024 11:20 AM EDT Appointment Mammography[place] [address] Rodney Padilla MD [address] [place] [address] 05/01/2024 1:45 PM EDT Office [place] [address] Juanpablo Hernandez MD [facility] [place] [address] 05/23/2024 2:45 PM EST Clinical Support Family Medicine at [facility] [address] [place] [address] Julia Magaña RPH 01/30/2025 1:30 PM EDT Laboratory Appointment Lab at [facility] Hematology Oncology [address] [place] [address] 01/30/2025 3:[address] [place] [address] Arturo Cordero MD [facility] DR HEMATOLOGY [place] [address] 01/30/2025 4:15 PM EDT Office Visit Hematology [place] [address] Arturo Cordero MD [facility] DR HEMATOLOGY [place] [address] documented as of this encounter Procedures Procedure [...] insulin documented in this encounter Care Teams Fryline Attendant Relationship Specialty Start Date End Date Rodney Padilla MD [address] [place] [address] PCP - General 07/18/22 04/09/24 documented as of this encounter
--- OUTSIDE RECORDS SUMMARY | 2024-04-13 15:42 | XMS_ITS | Encounter Summary ---
Author Organization [facility] [place] [address] Care Team Providers Care Chimney Builder Name Role Phone Rodney Padilla MD Primary Care Provider +1- [phone] Encounter Details Date Type Department Care Team (Latest Contact Info) Description 02/28/2023 4:00 PM EDT TH Visit (TeleHealth) Family Medicine at 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 Altered mental [...] tablet 5 fluticasone propionate (Flonase) 50 mcg/actuation [place], Suspension 1 spray by Each Nare route [...] and communicating with other health acute care registered nurse Documenting clinical information in the electronic or other health record Independently interpreting results Care coordination documented in this encounter Plan of Treatment Upcoming Encounters Date Type Department Care Team (Late st Contact Info) Description 05/01/2024 11:20 AM EDT Appointment Mammography/[place] [address] Rodney Padilla MD [address] [place] [address] 05/01/2024 1:45 PM EDT [place] [address] [facility] [place] [address] 05/23/2024 2:45 PM EST Clinical Support Family Medicine at [facility] [address] [place] [address] Julia Low, [facility] 01/30/2025 1:30 PM EDT Laboratory Appointment Lab at [facility] Hematology Oncology [address] [place] [address] 01/30/2025 3:[address] [place] [address] [facility] DR HEMATOLOGY [place] [address] 01/30/2025 4:15 PM EDT Office Visit [place] [address] [facility] DR HEMATOLOGY [place] [address] documented as of this encounter Visit Diagnoses Diagnosis Type 2 diabetes mellitus without complication, with long-term current use of insulin documented in this encounter Care Teams Chimney Builder Relationship Specialty Start Date End Date Rodney Padilla MD [address] [place] [address] PCP - General 07/18/22 04/09/24 documented as of this encounter
--- OUTSIDE RECORDS SUMMARY | 2024-04-13 15:42 | XMS_ITS | Encounter Summary ---
Author Organization [facility] Address [facility] [place] [address] Care Team Providers Care Senior Reservoir Engineer Name Role Phone Rodney Padilla MD Primary Care Provider +1- [phone] Reason for Visit * Reason Onset Date Comments Medication Refill 03/21/2023 Encounter Details Date Type Department Care Team (Late st Contact Info) Description 03/21/2023 Refill Family Medicine at [facility] [address] [place] [address] Tamera Khan, [facility] DR [address] WALKER-[place] [address] Social History Tobacco Use Types Packs/Day Years [...] 05/01/2024 11:20 AM EDT Appointment Mammography/[place] [address] Rodney Padilla MD [address] [place] [address] 05/01/2024 1:45 PM EDT Office [place] [address] Juanpablo Hernandez MD [facility] [place] [address] 05/23/2024 2:45 PM EST Clinical Support [facility] Medicine at [facility] [address] [place] [address] Julia Low, [facility] 01/30/2025 1:30 PM EDT Laboratory Appointment Lab at [facility] Hematology Oncology [address] [place] [address] 01/30/2025 3:[address] [place] [address] Arturo Cordero MD [facility] HEMATOLOGY [place] [address] 01/30/2025 4:15 PM EDT Office Visit Hematology [place] [address] Arturo Cordero MD [facility] HEMATOLOGY [place] [address] documented as of this encounter Visit Diagnoses Not on filedocumented in this encounter Care Teams Senior Reservoir Engineer Relationship Specialty Start Date End Date Rodney Padilla MD [address] [place] [address] PCP - General 07/18/22 04/09/24 documented as of this encounter
--- OUTSIDE RECORDS SUMMARY | 2024-04-13 15:42 | XMS_ITS | Encounter Summary ---
Author Organization [facility] Address [facility] [place] [address] Care Team Providers Care Referral Nurse Name Role Phone Rodney Padilla MD Primary Care Provider +1- [phone] Reason for Visit * Reason Comments Diabetes Encounter Details Date Type Department Care Team (Late st Contact Info) Description 08/03/2023 1:30 PM EST TH Visit (TeleHealth) Family Medicine at [facility] [address] [place] [address] Julia Low, [facility] [...] any of the following conditions: Yes [x] [place]/Stroke/CAD [] Retinopathy [] CHF [x] Neuropathy [] [...] x weekly. Uses [employer] testing supplies Has [employer] troy but has never worn and fears being unable to understand the results so elected not to try Interested in Dexcom G7, report approved by insurance. Needs to call [employer] to get an update on shipping Prior Averages: 08/26/21 09/09/21 09/24/21 11/14/21 11/03/22 12/01/22 01/03/23 Daily Avg 157 168 131 138 175 153 176 eA1c 8.55895 8.46 7.20 7.44 8.7 7.95 8.75 Acute [...] (Dexcom G7 Sensor) Device 1 Device by [facility]Non-Drug; Combo Route) route every10 days. 3 each 11 lamoTRIgine (LaMICtal) 100 mg tablet Take 1.5 tablets by mouth daily. 90 tablet 3 umeclidinium-vilanteroL (Anoro Ellipta) 62.5-25 mcg/actuation Disk with Device Inhale 1 Inhalation into the lungs daily. 3 each 3 inhalational spacing device (Hesham Aerosol Rooks Enhancer) Spacer 1 each by [facility].(Non-Drug; Combo Route) route as needed. 1 each [...] tablet 5 fluticasone propionate (Flonase) 50 mcg/actuation [place], Suspension 1 spray by Each Nare route [...] 05/01/2024 11:20 AM EDT Appointment Mammography[place] [address] Rodney Padilla MD [address] [place] [place] [address] 05/01/2024 1:45 PM EDT Office [place] [address] Juanpablo Hernandez MD [facility] [place] [address] 05/23/2024 2:45 PM EST Clinical Support Family Medicine at [facility] [address] [place] [address] Julia Low RPH 01/30/2025 1:30 PM EDT Laboratory Appointment Lab at [facility] Hematology Oncology [address] [place] [address] 01/30/2025 3:[address] [place] [address] Arturo Cordero MD [facility] [place] [address] 01/30/2025 4:15 PM EDT Office Visit [place]ematology [place] [address] Arturo Cordero MD [facility] [place] [address] documented as of this encounter Visit Diagnoses Diagnosis Type 2 diabetes mellitus without long-term current use of insulin- Primary documented in this encounter Care Teams Referral Nurse Relationship Specialty Start Date End Date Rodney Padilla MD [address] [place] [place] [address] PCP - General 07/18/22 04/09/24 documented as of this encounter
--- OUTSIDE RECORDS SUMMARY | 2024-04-13 15:42 | XMS_ITS | Encounter Summary ---
Author Organization [facility] [place] [address] Care Team Providers Care Sausage Machine Operator Name Role Phone Rodney Padilla MD Primary Care Provider +1- [phone] Encounter Details Date Type Department Care Team (Latest Contact Info) Description 06/20/2023 2:00 PM EST Office Visit Family Medicine at [facility] [address] [place] [address] Rodney Padilla MD [address] [place] [address] Diabetic polyneuropathy associated with type 2 diabetes [...] tablet 5 fluticasone propionate (Flonase) 50 mcg/actuation [place], Suspension 1 spray by Each Nare route [...] Referring and communicating with other health healthcare financial analyst Documenting clinical information in the electronic or other health record Independently interpreting results Care coordination documented in this encounter Plan of Treatment Upcoming Encounters Date Type Department Care Team (Late st Contact Info) Description 05/01/2024 11:20 AM EDT Appointment Mammography/[place] [address] Rodney Padilla MD [address] [place] [address] 05/01/2024 1:45 PM EDT Office [place] [phone] Juanpablo Hernandez MD [facility] [place] [address] 05/23/2024 2:45 PM EST Clinical Support Family Medicine at [facility] [address] [place] [address] Julia Low [facility] 01/30/2025 1:30 PM EDT Laboratory Appointment Lab at [facility] [place]ology Oncology [address] [place] [address] 01/30/2025 3:[address] [place] [address] Arturo Cordero MD [facility] DR HEMATOLOGY [place] [address] 01/30/2025 4:15 PM EDT Office Visit Hematology [place] [address] Arturo Cordero MD [facility] DR HEMATOLOGY [place] [address] documented as of this encounter Procedures Procedure [...] PFT FEV1/FVC Pre-BD Z-Score -0.96 COMPAS PFT NAD54-36 Actual Pre-BD 0.88 % COMPAS PFT WNM60-38 Predicted 2.06 % COMPAS PFT LOB62-29 Pre-BD % of Predicted 43 % COMPAS PFT UZG32-05 Pre-BD Z-Score -1.92 COMPAS PFT DLCO Hb [...] Rodney Padilla MD PFT ORDERABLES COMPAS PFT * U Albumin/Cre Ratio (06/20/2023 4:05 PM EST) Albumin / Creatinin Ratio, Urine 6 0 - 29 mcg/mg Cr [facility] Comment: Reference Ranges: <30 [...] 2, 357? 362 Albumin, Urine 7.3 mg/L [facility] Creatinine, Urine 119 mg/dL [facility] Urine 06/20/2023 4:05 PM EST 06/20/2023 4:25 PM EST Narrative Resulting Agency Comment Spec In Lab Rodney Padilla MD URINE ORDERABLES [facility] [address] [place] [address] * Lipid Panel (Reflex Direct LDL) (06/20/2023 3:58 PM EST) Cholesterol, Total 141 mg/dL [facility] Comment: Lower Risk: <200 mg/dL Average Risk: 200-239 mg/dL Higher Risk: >th=799 mg/dL Triglyceride 96 mg/dL [facility] Comment: Average Risk/Lower Risk: <150 mg/dL Borderline High Risk: 150-199 mg/dL High Risk: 200-499 mg/dL Very High Risk: >qo=934 mg/dL HDL Cholesterol 41 mg/dL [facility] Comment: Males: ?? Higher Risk: <40 mg/dL Females: ?? Higher Risk: <50 mg/dL LDL Cholesterol 81 mg/dL [facility] Comment: Lowest Risk: <100 mg/dL Lower Risk: 100-129 mg/dL Borderline High Risk: 130-159 mg/dL High Risk: 160-189 mg/dL Very High Risk: >id=359 mg/dL Cholesterol/HDL Ratio 3.[address] [facility] Lipid Interpretation See Note [facility] Comment: Lipid management should be guided by a patient? s ASCVD risk, goals and preferences. ACC/AHA Guidelines recommend high intensity statin if clinical ASCVD or LDL greater than or equal to 190 mg/dL. http://tinyurl.com/KOU-EAR-Xlcsvpktd Adults aged 40-75 with LDL 70-189 mg/dL should have their 10 year ASCVD risk estimated with the ACC/AHA ASCVD risk field education director http://tools.acc.org/ZSZFR-Rtsi-Bdwizsacx/ Statin should be discussed if risk greater [...] Lab Rodney Padilla MD CHEMISTRY ORDERABLE S [facility] [place] [address] * Basic Metabolic Panel (non-fasting) (06/20/2023 3:58 PM EST) Glucose 142 65 - 199 mg/dL [facility] Comment:Diabetes: >=200 mg/d L plus symptoms Blood Urea Nitrogen 11 8 - 18 mg/dL [facility] Creatinine 0.89 0.70 - 1.20 mg/dL [facility] Sodium 144 135 - 145 mmol/L [facility] Potassium 4.3 3.5 - 5.0 mmol/L [facility] Comment: Please note: ??Patients with WBC >100,000 may have falsely elevated Potassium levels. ??For accurate Potassium quantification in these patients send serum separator tube (gold top) for subsequent determinations. ??Contact the Clinical Chemistry Laboratory if there are any questions. Chloride 106 98 - 107 mmol/L [facility] Carbon Dioxide 25 22 - 31 mmol/L [facility] Anion Gap 13 5 - 15 mmol/L [facility] Calcium 9.3 8.5 - 10.5 mg/dL [facility] Est Glomerular Filtration Rate 73 >=60 mL/min/1. 73 m?? [facility] Comment: This patient's estimated [...] MD CHEMISTRY ORDERABLE S Performing Organization Address City/[facility]/ZIP Co de Phone Number [facility] [place] [address] * (ABNORMAL) Hemoglobin A1c (06/20/2023 3:58 PM EST) Hemoglobin A1c 9.4(H) 4.3 - 5.6 % [facility] Comment: Reference Range: 4.3 [...] Mellitus, Diabetes Care 2013; 36: Suppl. 1, S67-76 Estimated Average Glucose 222 mg/dL [facility] Comment: Note: The eAG calculation has not been proven valid for women, individuals below 18 years old or above 70 years old, or individuals with hemoglobinopathies. Estimated average glucose (eAG) is calculated from the equation described in: Yahir GRADY, Bernadette J, Tahira R, et al. ??Translating the A1C assay into estimated average glucose values. ??Diabetes Care 2008:31(8):9167-7291. Additional resources are available on the ADA website (diabetes.org). Blood 06/20/2023 3:58 PM EST 06/20/2023 4:08 PM EST Narrative Resulting Agency Comment Spec In Lab Rodney Padilla MD CHEMISTRY ORDERABLE S [facility] [place] [address] documented in this encounter Visit Diagnoses Diagnosis [...] type documented in this encounter Care Teams Sausage Machine Operator Relationship Specialty Start Date End Date Rodney Padilla MD [address] [place] [address] PCP - General 07/18/22 04/09/24 documented as of this encounter
--- OUTSIDE RECORDS SUMMARY | 2024-04-13 15:42 | XMS_ITS | Encounter Summary ---
Author Organization [facility] Address [facility] [place] [address] Care Team Providers Care Preforms Laminator Name Role Phone Rodney Padilla MD Primary [...] Description 07/05/2023 Nurse Triage Family Medicine at [facility] [address] [place] [address] Kaela Rodriges licensed direct entry midwife Problem (Dr. Padilla wanted her to call [...] I can help. Sincerely, Saida Padilla and Saida, Please review and advise. Patient is no [...] - 07/05/2023 4:46 PM EST Copied from [facility] #[id number]. Topic: Triage - Triage >> Jul 05, 2023 4:29 PM Jackie Zuluaga wrote: Symptom: Appetite Change PCP: RODNEY PADILLA Additional Comments: Patient says that she can't eat while on dulaglutide (Trulicity) 0.75 mg/0.5 mL Pen Injector [[id number]]. She said that it is effecting her gastrointestinal issues. Patient said that she saw a dietitian to check her blood sugar. She would like to speak with someone about this. Please call patient. documented in this encounter Plan of Treatment Upcoming Encounters Date Type Department Care Team (Late st Contact Info) Description 05/01/2024 11:20 AM EDT Appointment Mammography/[place] [phone] Rodney Padilla MD [address] [place] [address] 05/01/2024 1:45 PM EDT Office [place] [phone] Juanpablo Hernandez MD [facility] [place] [address] 05/23/2024 2:45 PM EST Clinical Support Family Medicine at [facility] [address] [place] [phone] Julia Low, [facility] 01/30/2025 1:30 PM EDT Laboratory Appointment Lab [place] [facility] [place] [address] [place] [address] 01/30/2025 3:[address] [place] [phone] Arturo Cordero MD [facility] DR HEMATOLOGY [place] [address] 01/30/2025 4:15 PM EDT Office Visit Hematology [place] [address] Arturo Cordero MD [facility] HEMATOLOGY [place] [address] documented as of this encounter Visit Diagnoses Not on filedocumented in this encounter Care Teams Preforms Laminator Relationship Specialty Start Date End Date Rodney Padilla MD [address] [place] [address] PCP - General 07/18/22 04/09/24 documented as of this encounter
--- OUTSIDE RECORDS SUMMARY | 2024-04-13 15:42 | XMS_ITS | Encounter Summary ---
[place] [address] Care Team Providers Care English Horn Player Name Role Phone Rodney Padilla MD Primary Care Provider Encounter Details Date Type Department Care Team (Late st Contact Info) Description 06/23/2023 [place] [phone] Andressa Hernandez Social History Tobacco Use Types [...] 06/23/2023 4:59 PM EST Copied from CRM #[id number]. Topic: Specialty Dept CRMs - Generic Call >> Jun 20, 2023 3:00 PM Cheri Quinones wrote: Specialist: Rodney Padilla Relationship (if other than patient-full name): Maze Reason for Call: Scheduled PFT 08/18 at 1 PM documented in this encounter Plan of Treatment Upcoming Encounters Date Type Department Care Team (Late st Contact Info) Description 05/01/2024 11:20 AM EDT Appointment Mammography/[place] [phone] Rodney Padilla MD [address] FAMILY MEDICINE [place], [place] [address] 05/01/2024 1:45 PM EDT Office [place] [address] Juanpablo Hernandez MD [facility] [place] [address] 05/23/2024 2:45 PM EST Clinical Support Family Medicine at [facility] [address] [place] [address] Julia Low, [facility] 01/30/2025 1:30 PM EDT Laboratory Appointment [place] [facility] [place] [address] [place] [address] 01/30/2025 3:[address] [place] [address]1000 Arturo Cordero MD [facility] DR HEMATOLOGY [place] [address] 01/30/2025 4:15 PM EDT Office Visit Hematology [place] [address] Arturo Cordero MD [facility] DR HEMATOLOGY [place] [address] documented as of this encounter Visit Diagnoses Not on filedocumented in this encounter Care Teams English Horn Player Relationship Specialty Start Date End Date Rodney Padilla MD [address] [place] [address] PCP - General 07/18/22 04/09/24 documented as of this encounter
--- OUTSIDE RECORDS SUMMARY | 2024-04-13 15:42 | XMS_ITS | Encounter Summary ---
Author Organization [facility] [place] [address] Care Team Providers Care Coach Builder Name Role Phone Rodney Padilla MD Primary Care Provider Encounter Details Date Type Department Care Team (Late st Contact Info) Description 02/20/2023 Telephone Family Medicine at [facility] [address] [place] [address] Rani Menard, RN Social History Tobacco Use [...] - 02/20/2023 11:06 AM EDT Copied from [facility] #[id number]. Topic: Triage - Triage >> Feb 20, 2023 10:40 AM Alba Richard wrote: Symptom: Knee Pain ([facility] PCP: RODNEY PADILLA Additional Comments: AMCM advised a message be placed as patient is requesting an appointment on 02/22 for a cortizone shot for her severe knee pain. [facility] advised patient to be seen within 24 hours but patient declined. documented in this encounter Plan of Treatment Upcoming Encounters Date Type Department Care Team (Late st Contact Info) Description 05/01/2024 11:20 AM EDT Appointment Mammography/[place] [phone] Rodney Padilla MD [address] [place] [address] 05/01/2024 1:45 PM EDT [place] [address] Juanpablo Hernandez MD [facility] [place] [address] 05/23/2024 2:45 PM EST Clinical Support Family Medicine at [facility] [address] [place] [address] Julia Low [facility] 01/30/2025 1:30 PM EDT Laboratory Appointment Lab at [facility] [place] Hematology Oncology [address] [place] [address] 01/30/2025 3:[address] [place] [address] Arturo Cordero MD [facility] DR HEMATOLOGY [place] [address] 01/30/2025 4:15 PM EDT Office Visit [place] [address] Arturo Cordero MD [facility] DR HEMATOLOGY [place] [address] documented as of this encounter Visit Diagnoses Not on filedocumented in this encounter Care Teams Coach Builder Relationship Specialty Start Date End Date Rodney Padilla MD [address] [place] [address] PCP - General 07/18/22 04/09/24 documented as of this encounter
--- OUTSIDE RECORDS SUMMARY | 2024-04-13 15:42 | XMS_ITS | Encounter Summary ---
Author Organization [facility] Address [facility] [place] [address] Care Team Providers Care Naphthalene Operator Name Role Phone Rodney Padilla MD Primary Care Provider +1- [phone] Reason for Visit * Reason Onset Date Comments Medication Refill 03/21/2023 Encounter Details Date Type Department Care Team (Late st Contact Info) Description 03/21/2023 Refill Family Medicine at [facility] [address] [place] [address] Suzanne Martinez, KATHIA [facility] [address] [facility] [address] Social History Tobacco Use Types Packs/Day Years [...] 05/01/2024 11:20 AM EDT Appointment Mammography/[place] [address] Rodney Padilla MD [address] [place] [address] 05/01/2024 1:45 PM EDT Office [place] [phone] Juanpablo Hernandez MD [facility] [place] [address] 05/23/2024 2:45 PM EST Clinical Support Family Medicine at [facility] [address] [place] [address] Julia Low [facility] 01/30/2025 1:30 PM EDT Laboratory Appointment Lab at [facility] [place] On[place] [address] [place] [address] 01/30/2025 3:[address] [place] [address] Arturo Cordero MD [facility] HEMATOLOGY [place] [address] 01/30/2025 4:15 PM EDT Office Visit Hematology [place] [address] Arturo Cordero MD [facility] HEMATOLOGY [place] [address] documented as of this encounter Visit Diagnoses Not on filedocumented in this encounter Care Teams Naphthalene Operator Relationship Specialty Start Date End Date Rodney Padilla MD [address] [place] [address] PCP - General 07/18/22 04/09/24 documented as of this encounter
--- OUTSIDE RECORDS SUMMARY | 2024-04-13 15:42 | XMS_ITS | Encounter Summary ---
Author Organization [facility] Address [facility] [place] [address] Care Team Providers Care Marine Engineer Cpvec Name Role Phone Rodney Padilla MD Primary Care Provider +1- [phone] Reason for Visit * Reason Onset Date Comments Medication Refill 04/02/2023 Encounter Details Date Type Department Care Team (Late st Contact Info) Description 04/02/2023 Refill Family Medicine at [facility] [address] [place] [address] Tamera Khan, KATHIA [facility] [address]ALK[address]-[place] [address] Social History Tobacco Use Types Packs/Day Years [...] Drug) Nausea And Vomiting Jade Kruse MA 04/05/23 8:58 AM documented in this encounter Plan of Treatment Upcoming Encounters Date Type Department Care Team (Late st Contact Info) Description 05/01/2024 11:20 AM EDT Appointment Mammography/[place] [address] Rodney Padilla MD [address] [place] [address] 05/01/2024 1:45 PM EDT Office [place] [address] Juanpablo Hernandez MD [facility] [place] [address] 05/23/2024 2:45 PM EST Clinical Support Family Medicine at [facility] [address] [place] [phone] Julia Low [facility] 01/30/2025 1:30 PM EDT Laboratory Appointment Lab at [facility] Hematology Oncology [address] [place] [address] 01/30/2025 3:[address] [place] [address] Arturo Cordero MD [facility] DR HEMATOLOGY [place] [address] 01/30/2025 4:15 PM EDT Office Visit Hematology [place] [address] Arturo Cordero MD [facility] DR HEMATOLOGY [place] [address] documented as of this encounter Visit Diagnoses Not on filedocumented in this encounter Care Teams Marine Engineer Cpvec Relationship Specialty Start Date End Date Rodney Padilla MD [address] [place] [address] PCP - General 07/18/22 04/09/24 documented as of this encounter
--- OUTSIDE RECORDS SUMMARY | 2024-04-13 15:42 | XMS_ITS | Encounter Summary ---
Author Organization [facility] Address [facility] [place] [address] Care Team Providers Care Cooler Servicer Name Role Phone Rodney Padilla MD Primary Care Provider +1- [phone] Encounter Details Date Type Department Care Team [...] 11:20 AM EDT Appointment Mammography/[place] [address] Rodney Padilla MD [address] [place] [place] [address] 05/01/2024 1:45 PM EDT Office Visit [place] [address] Juanpablo Hernandez MD [facility] [address] 05/23/2024 2:45 PM EST Clinical Support Family Medicine at [facility] [address] [place] [address] Julia Low [facility] 01/30/2025 1:30 PM EDT Laboratory Appointment Lab at [facility] [place]ology Oncology [address] [place] [address] 01/30/2025 3:[address] [place] [address] Arturo Cordero MD [facility] DR [place] [address] 01/30/2025 4:15 PM EDT Office Visit Hematology [place] [address] Arturo Cordero MD [facility] DR [place] [address] documented as of this encounter Visit Diagnoses Not on filedocumented in this encounter Care Teams Cooler Servicer Relationship Specialty Start Date End Date Rodney Padilla MD [address] [place] [address] PCP - General 07/18/22 04/09/24 documented as of this encounter
--- OUTSIDE RECORDS SUMMARY | 2024-04-13 15:42 | XMS_ITS | Encounter Summary ---
Author Organization [facility] [place] [address] Care Team Providers Care Well Puller Name Role Phone Rodney Padilla MD Primary Care Provider +1- [phone] Reason for Visit * Reason Onset Date Comments Medication Refill 05/24/2023 Encounter Details Date Type Department Care Team (Late st Contact Info) Description 05/24/2023 Refill Family Medicine at [facility] [address] [place] [address] Rodney Padilla MD [address] [place] [place] [address] Social History Tobacco Use Types Packs/Day Years [...] to reach out to the Pharmacy: Pearl Pandey [address] [place] [address] Patient declined scheduling an appointment: 06/20/23 next appt Ask caller their first and last name and relationship to the patient: self Best time to call back: any Ok to leave a message: Ok to send [facility] message: Did you contact your pharmacy: Patient states pharmacy says no more refills documented in this encounter Plan of Treatment Upcoming Encounters Date Type Department Care Team ([facility] Contact Info) Description 05/01/2024 11:20 AM EDT Appointment Mammography/[place] [address] Rodney Padilla MD [address] [place] [address] 05/01/2024 1:45 PM EDT Office [place] [address] Juanpablo Hernandez MD [facility] [place] [address] 05/23/2024 2:45 PM EST Clinical Support Family Medicine at [facility] [address] [place] [address] Julia Low [facility] 01/30/2025 1:30 PM EDT Laboratory Appointment Lab at [facility] Hematology Oncology [address] [place] [address] 01/30/2025 3:[address] [place] [address] Arturo Cordero MD [facility] DR [place] [address] 01/30/2025 4:15 PM EDT Office Visit Hematology [place] [address] Arturo Cordero MD [facility] DR [place] [address] documented as of this encounter Visit Diagnoses Not on filedocumented in this encounter Care Teams Well Puller Relationship Specialty Start Date End Date Rodney Padilla MD [address] [place] [address] PCP - General 07/18/22 04/09/24 documented as of this encounter
--- OUTSIDE RECORDS SUMMARY | 2024-04-13 15:42 | XMS_ITS | Encounter Summary ---
Author Organization [facility] [place] [address] Care Team Providers Care Garment Finisher Name Role Phone Rodney Padilla MD Primary Care Provider Encounter Details Date Type Department Care Team (Late st Contact Info) Description 02/20/2023 [place] [phone] Lakshmi Castellanos RN Social History Tobacco Use [...] Work Phone: Work Phone: Gender: Female Time: [place] [address] Address: [place] [address] Address: PCP: Unknown, [address] - Relationship to Caller: Self Org: [facility] [address] Chief Complaint: KNEE Call Outcome: See MD Within 24 Hours Client: Company: [facility] PhoneLine1: [facility], Triage Patient: Alize Gramajo Caller Is: Alize [...] -patient states she is already coming to [facility] for an eye appointment and wants to [...] LB1 Guideline: Knee Pain - (Adult After-Hours) [[id number]] Triage Level: Pre Disposition: RN Override: See Physician within 24 Hours See/call Doctor Disagree Reason: Go to Facility: Patient Understands Instructions: Yes Questions / Responses For: Knee Pain - (Adult After-Hours) [[id number]] TRIAGE QUESTION (TRIGGERING DISPOSITION) Response [1] Very swollen joint AND [2] no fever R/O: forgotten trauma, arthritis CARE ADVICE Response 1. CARE ADVICE given per Knee Pain (Adult) guideline. Alize Gramajo Triage #: [id number] - [KNEE] Page 1 of 2 MD [...] video telemedicine visit. Call your doctor (or PHYSICIAN AIDE/PA) when the office opens and make an appointment. 1001. PAIN MEDICINES: * For pain relief, you can take either acetaminophen, ibuprofen, or naproxen. * Before taking any medicine, read all the instructions on the package. Alize Gramajo Triage #: [id number] - [KNEE] Page 2 of 2 documented in this encounter Plan of Treatment Upcoming Encounters Date Type Department Care Team (Late st Contact Info) Description 05/01/2024 11:20 AM EDT Appointment Mammography/[place] [phone] Rodney Padilla MD [address] [facility] [place] [address] 05/01/2024 1:45 PM EDT [place] [address] Juanpablo Hernandez MD [facility] [place] [address] 05/23/2024 2:45 PM EST Clinical Support [facility] Medicine at [address] [phone] Julia Low [facility] 01/30/2025 1:30 PM EDT Laboratory Appointment Lab at [facility] Hematology Oncology [address] [place] [id number] 01/30/2025 3:[address] [place] [place] [address] Arturo Cordero MD [facility] HEMATOLOGY AND ONCOLOGY [place], [place] [phone] 01/30/2025 4:15 PM EDT Office Visit [place] [address] Arturo Cordero MD [facility] DR [place] [address] documented as of this encounter Visit Diagnoses Not on filedocumented in this encounter Care Teams Garment Finisher Relationship Specialty Start Date End Date Rodney Padilla MD [address] [place] [address] PCP - General 07/18/22 04/09/24 documented as of this encounter
--- OUTSIDE RECORDS SUMMARY | 2024-04-13 15:42 | XMS_ITS | Encounter Summary ---
Author Organization [facility] Address [facility] [place] [address] Care Team Providers Care Seam Presser Name Role Phone Rodney Padilla MD Primary Care Provider +1- [phone] Encounter Details Date Type Department Care Team [...] 05/01/2024 11:20 AM EDT Appointment Mammography/[place] [phone] Rodney Padilla MD [address] [place] [address] 05/01/2024 1:45 PM EDT Office [place] [address] Juanpablo Hernandez MD [facility] [address] 05/23/2024 2:45 PM EST Clinical Support Family Medicine at [facility] [address] [place] [phone] Julia Low [facility] 01/30/2025 1:30 PM EDT Laboratory Appointment Lab at [facility] Hematology Oncology [address] [place] [address] 01/30/2025 3:[address] [place] [phone] Arturo Cordero MD [facility] DR HEMAT[place] [address] 01/30/2025 4:15 PM EDT Office Visit Hematology [place] [address] Arturo Cordero MD [facility] DR [place] [address] documented as of this encounter Visit Diagnoses Not on filedocumented in this encounter Care Teams Seam Presser Relationship Specialty Start Date End Date Rodney Padilla MD [address] [place] [address] PCP - General 07/18/22 04/09/24 documented as of this encounter
--- OUTSIDE RECORDS SUMMARY | 2024-04-13 15:42 | XMS_ITS | Encounter Summary ---
Author Organization [facility] Address [facility] [place] [address] Care Team Providers Care Assistant Attorney General Name Role Phone Rodney Padilla MD Primary Care Provider +1- [phone] Encounter Details Date Type Department Care Team [...] EDT Appointment Mammography/[place] [phone] Rodney Padilla MD [address] [place] [address] 05/01/2024 1:45 PM EDT Office [place] [address] Juanpablo Hernandez MD [facility] [place] [address] 05/23/2024 2:45 PM EST Clinical Support Family Medicine at [facility] [address] [place] [phone] Julia Low [facility] 01/30/2025 1:30 PM EDT Laboratory Appointment Lab at [facility] Hematology Oncology [address] [place] [address] 01/30/2025 3:[address] [place] [phone] Arturo Cordero MD [facility] DR HEMATOLOGY [place] [address] 01/30/2025 4:15 PM EDT Office Visit Hematology [place] [address] Arturo Cordero MD [facility] DR HEMATOLOGY [place] [address] documented as of this encounter Visit Diagnoses Not on filedocumented in this encounter Care Teams Assistant Attorney General Relationship Specialty Start Date End Date Rodney Padilla MD [address] [place] [address] PCP - General 07/18/22 04/09/24 documented as of this encounter
--- OUTSIDE RECORDS SUMMARY | 2024-04-13 15:42 | XMS_ITS | Encounter Summary ---
Author Organization [facility] [place] [address] Care Team Providers Care Patient Care Name Role Phone Rodney Padilla MD Primary Care Provider Encounter Details Date Type Department Care Team (Latest Contact Info) Description 08/03/2023 7:45 AM EST - 08/03/2023 11:59 PM EST Hospital Encounter Hematology [place] [address] Malignant melanoma of conjunctiva, left Discharge Disposition: [...] End Date inhalational spacing device (Hesham Aerosol [place] Enhancer) SpacerIndications:Chr onic obstructive pulmonary disease, unspecified [...] 3 mL 11 08/03/2023 10/27/2023 Blood-Glucose Sensor (Dexcom G7 Sensor) DeviceIndications:Typ e 2 diabetes mellitus with hyperglycemia, without long-term current use of insulin 1 Device by [facility]Non-Drug; Combo Route) route every 10 days. 3 [...] 09/26/2022 09/19/2023 fluticasone propionate (Flonase) 50 mcg/actuation [place], Suspension 1 spray by Each Nare route [...] insurance preferred quantity 10 each 04/08/2022 09/19/2023 polyethylene glycoL (Miralax) 17 gram Powder in PacketIndications:Con stipation, unspecified constipation type Take 17 g by mouth daily. 14 each 09/15/2020 09/19/2023 documented as of this encounter Plan of Treatment Upcoming Encounters Date Type Department Care Team (Late st Contact Info) Description 05/01/2024 11:20 AM EDT Appointment Mammography/[place] [address] Rodney Padilla MD [address] [facility]ILY MEDICINE [place], [place] [phone] 05/01/2024 1:45 PM EDT Office Visit [place] [address] Juanpablo Hernandez MD [facility] [place] [address] 05/23/2024 2:45 PM EST Clinical Support Family Medicine at [facility] [address] [place] [address] Julia Low [place] 01/30/2025 1:30 PM EDT Laboratory Appointment Lab at [facility] Hematology Oncology [address] [place] [phone] 01/30/2025 3:[address] [place] [address] Arturo Cordero MD [facility] DR [place] [address] 01/30/2025 4:15 PM EDT Office Visit Hematology [place] [address] Arturo Cordero MD [facility] DR [place] [address] documented as of this encounter Procedures Procedure [...] 7:53 AM EST) Neutrophil % 63.8 % [facility] Neutrophil Absolute 5.66 1.70 - 6.10 x10(3)/mc L [facility] Lymph % 24.1 % [facility] Lymphocytes Abs 2.1 0.9 - 3.2 x10(3)/mc L [facility] Monocyte % 8.9 % [facility] Monocyte Abs 0.8 0.3 - 0.9 x10(3)/mc L [facility] Eos % 1.8 % [facility] Eosinophils Abs 0.2 0.0 - 0.4 x10(3)/mc L [facility] Basophil % 0.8 % [facility] Baso Absolute 0.1 0.0 - 0.1 x10(3)/mc L [facility] Immature Gran % 0.60 % [facility] Comment: Immature granulocytes(IG's)percentage and absolute count will include metamyelocytes, myelocytes, and promyelocytes. Blood smears from CBCs yielding IG's will be scanned manually for concordance. If this scan disagrees with the automated IG or if promyelocytes are noted, a manual differential will be performed. Immature Gran Absolute 0.05(H) 0.00 - 0.04 x10(3)/mc L [facility] Blood 08/03/2023 7:53 AM EST 08/03/2023 8:53 AM EST Narrative Resulting Agency Comment Spec In Lab Arturo Cordero MD HEMATOLOGY ORDERABLE S [facility] [place] [address] * (ABNORMAL) Hemogram (08/03/2023 7:53 AM EST) White Blood Cell 8.9 4.0 - 9.5 x10(3)/[facility] Red Blood Cell 4.61 4.00 - 5.21 x10(6)/[facility] Hemoglobin 13.0 11.7 - 15.5 g/dL [facility] Hematocrit 39.3 35.7 - 45.8 % [facility] Mean Cell Volume 85.2 82.6 - 94.4 fL [facility] Mean Cell Hemoglobin 28.2 27.1 - 32.0 pg [facility] Mean Cell Hemoglobin Concentration 33.1 31.7 - 35.0 g/dL [facility] Platelet 389(H) 145 - 357 x10(3)/ L [facility] RDW Standard Deviation 46.1(H) 37.0 - 46.0 fL [facility] RDW coefficient of variation 14.8(H) 11.5 - 14.1 % [facility] Mean Platelet Volume 9.3 7.6 - 12.9 fL [facility] NRBC% auto 0.0 % [facility] NRBC Absolute 0.000 0.000 - 0.000 x10(3)/ L [facility] Blood 08/03/2023 7:53 AM EST 08/03/2023 8:53 AM EST Narrative Resulting Agency Comment Spec In Lab Arturo Cordero MD HEMATOLOGY ORDERABLE S [facility] [place] [address] * (ABNORMAL) Comprehensive metabolic panel (non-fasting) (08/03/2023 7:53 AM EST) Glucose 254(H) 65 - 199 mg/dL [facility] Comment:Diabetes: >=200 mg/d L plus symptoms Blood Urea Nitrogen 17 8 - 18 mg/dL [facility] Creatinine 0.82 0.70 - 1.20 mg/dL [facility] Sodium 140 135 - 145 mmol/L [facility] Potassium 4.9 3.5 - 5.0 mmol/L [facility] Comment: Please note: ??Patients with WBC >100,000 may have falsely elevated Potassium levels. ??For accurate Potassium quantification in these patients send serum separator tube (gold top) for subsequent determinations. ??Contact the Clinical Chemistry Laboratory if there are any questions. Chloride 103 98 - 107 mmol/L [facility] Carbon Dioxide 27 22 - 31 mmol/L [facility] Anion Gap 10 5 - 15 mmol/L [facility] Calcium 9.5 8.5 - 10.5 mg/dL [facility] Protein, Total 6.9 6.1 - 8.0 g/dL [facility] Albumin 4.3 3.2 - 5.2 g/dL [facility] Aspartate Aminotransferase 19 0 - 30 unit/L [facility] Alanine Aminotransferase 26 0 - 30 unit/L [facility] Alkaline Phosphatase 101 35 - 105 unit/L [facility] Bilirubin, Total 0.3 0.2 - 1.3 mg/dL [facility] Est Glomerular Filtration Rate 80 >=60 mL/min/1. 73 m?? [facility] Comment: This patient's estimated GFR [...] Cordero MD CHEMISTRY ORDERABLES Performing Organization Address City/[facility]/ZIP Co de Phone Number [facility] [place] [address] * Lactate Dehydrogenase (08/03/2023 7:53 AM EST) Lactate Dehydrogenase 218 110 - 220 unit/L [facility] Blood 08/03/2023 7:53 AM EST 08/03/2023 9:46 AM EST Narrative Resulting Agency Comment Spec In Lab Arturo Cordero MD CHEMISTRY ORDERABLES Performing Organization Address [facility] Co de Phone Number [facility] [address] documented in this encounter Visit Diagnoses Diagnosis Malignant melanoma of conjunctiva, left documented in this encounter Care Teams Patient Care Relationship Specialty Start Date End Date Rodney Padilla MD [address] [place] [address] PCP - General 07/18/22 04/09/24 documented as of this encounter
--- OUTSIDE RECORDS SUMMARY | 2024-04-13 15:42 | XMS_ITS | Encounter Summary ---
Author Organization [facility] [place] [address] Care Team Providers Care Computer Aided Design Drafter Name Role Phone Rodney Padilla MD Primary Care Provider Reason for Visit * Reason Onset Date Comments Diabetes 05/29/2023 Encounter Details Date Type Department Care Team (Late st Contact Info) Description 05/29/2023 9:45 AM EST Telephone Family Medicine at [facility] [address] [place] [phone] Julia Low, [facility] Diabetes Social History Tobacco Use Types [...] withthis caller. Also is following with a clinical specialist but admits her BGs are not currently [...] Low RPH Visit Type: Telephone Call & [facility] message Subjective: Patient ID: Alize Gramajo is a 62 y.o. female. Phone call completed today for medication follow up. Caller: patient Reason for call: reivew repeated A1c result, reconnect for DM followup LVM and sent [facility] message requesting pt return call to reschedule [...] AM EDT Appointment Mammography/[place] [phone] Rodney Padilla MD [address] [place] [address] 05/01/2024 1:45 PM EDT Office [place] [phone] Juanpablo Hernandez MD [facility] [place] [address] 05/23/2024 2:45 PM EST Clinical Support Family Medicine at [facility] [address] [place] [phone] Julia Low [facility] 01/30/2025 1:30 PM EDT Laboratory Appointment Lab at [facility] Hematology Oncology [address] [place] [address] 01/30/2025 3:[address] [place] [phone] Arturo Cordero MD [facility] DR [place] [address] 01/30/2025 4:15 PM EDT Office Visit Hematology [place] [phone] Arturo Cordero MD [facility] [address] [place] [address] documented as of this encounter Visit Diagnoses Not on filedocumented in this encounter Care Teams Computer Aided Design Drafter Relationship Specialty Start Date End Date Rodney Padilla MD [address] [place] [place] [address] PCP - General 07/18/22 04/09/24 documented as of this encounter
--- OUTSIDE RECORDS SUMMARY | 2024-04-13 15:42 | XMS_ITS | Encounter Summary ---
Author Organization [facility] [place] [address] Care Team Providers Care Inspector Filter Tip Name Role Phone Rodney Padilla MD Primary Care Provider +1- [phone] Reason for Visit * Reason Comments Melanoma Malignant melanoma o f conjunctiva, left Encounter Details Date Type Department Care Team (Late st Contact Info) Description 07/26/2023 12:30 PM EST Office [place] [address] Juanpablo Hernandez MD [facility] [place] [address] Malignant melanoma of conjunctiva, left; Type 2 [...] 05/01/2024 11:20 AM EDT Appointment Mammography/[place] [address] Rodney Padilla MD [address] [place] [address] 05/01/2024 1:45 PM EDT Office [place] [address] Juanpablo Hernandez MD [facility] [place] [address] 05/23/2024 2:45 PM EST Clinical Support Family Medicine at [facility] [address] [place] [phone] Julia Low [facility] 01/30/2025 1:30 PM EDT Laboratory Appointment Lab at [facility] Hematology Oncology [address] [place] [address] 01/30/2025 3:[address] [place] [address] Arturo Cordero MD [facility] DR [place] [address] 01/30/2025 4:15 PM EDT Office Visit Hematology [place] [address] Arturo Cordero MD [facility] DR [place] [address] documented as of this encounter Visit Diagnoses Diagnosis Malignant melanoma of conjunctiva, left Type 2 diabetes mellitus without long-term current use of insulin documented in this encounter Care Teams Inspector Filter Tip Relationship Specialty Start Date End Date Rodney Padilla MD [address] [place] [address] PCP - General 07/18/22 04/09/24 documented as of this encounter
--- OUTSIDE RECORDS SUMMARY | 2024-04-13 15:42 | XMS_ITS | Encounter Summary ---
Author Organization [facility] [place] [address] Care Team Providers Care Hot Box Spotter Name Role Phone Rodney Padilla MD Primary Care Provider +1- [phone] Reason for Visit * Reason Onset Date Comments Medication Refill 06/13/2023 Encounter Details Date Type Department Care Team (Late st Contact Info) Description 06/13/2023 Refill Family Medicine at [facility] [address] [place] [address] Rodney Padilla MD [address] [facility] [place] [address] Essential hypertension Social History Tobacco Use Types [...] Rodney Padilla MD Pharmacy Name & Location: [facility] [address] [place] [address] Caller would like clinic to reach out to the Pharmacy: Yes Patient declined scheduling an appointment: Last office visit 04/17/2023 Ask caller their first and last name and relationship to the patient: Alize Gramajo Patient Best time to call back: Any Ok to leave a message: - Ok to send [facility] message: - Did you contact your pharmacy: unknown documented in this encounter Plan of Treatment Upcoming Encounters Date Type Department Care Team (Late st Contact Info) Description 05/01/2024 11:20 AM EDT Appointment Mammography/[place] [address] Rodney Padilla MD [address] [place] [address] 05/01/2024 1:45 PM EDT Office [place] [address] Juanpablo Hernandez MD [facility] [place] [address] 05/23/2024 2:45 PM EST Clinical Support Family Medicine at [facility] [address] [place] [phone] Julia Low [facility] 01/30/2025 1:30 PM EDT Laboratory Appointment Lab at [facility] Hematology Oncology [address] [place] [address] 01/30/2025 3:[address] [place] [address] Arturo Cordero MD [facility] DR [place] [address] 01/30/2025 4:15 PM EDT Office Visit Hematology [place] [address] Arturo Cordero MD [facility] DR [place] [address] documented as of this encounter Visit Diagnoses Diagnosis Essential hypertension Unspecified essential hypertension documented in this encounter Care Teams Hot Box Spotter Relationship Specialty Start Date End Date Rodney Padilla MD [address] [place] [address] PCP - General 07/18/22 04/09/24 documented as of this encounter
--- OUTSIDE RECORDS SUMMARY | 2024-04-13 15:42 | XMS_ITS | Encounter Summary ---
Author Organization [facility] Address [facility] [place] [address] Care Team Providers Care Manager Transfer Name Role Phone Rodney Padilla MD Primary Care Provider +1- [phone] Encounter Details Date Type Department Care Team [...] 11:20 AM EDT Appointment Mammography/[place] [phone] Rodney Padilla MD [address] [place] [address] 05/01/2024 1:45 PM EDT Office [place] [address] Juanpablo Hernandez MD [facility] [place] [address] 05/23/2024 2:45 PM EST Clinical Support Family Medicine at [facility] [address] [place] [address] Julia Low [facility] 01/30/2025 1:30 PM EDT Laboratory Appointment Lab at [facility] Hematology Oncology [address] [place] [address] 01/30/2025 3:[address] [place] [phone] Arturo Cordero MD [facility] DR HEMATOLOGY [place] [address] 01/30/2025 4:15 PM EDT Office Visit Hematology [place] [address] Arturo Cordero MD [facility] DR HEMATOLOGY [place] [address] documented as of this encounter Visit Diagnoses Not on filedocumented in this encounter Care Teams Manager Transfer Relationship Specialty Start Date End Date Rodney Padilla MD [address] [place] [address] PCP - General 07/18/22 04/09/24 documented as of this encounter
--- OUTSIDE RECORDS SUMMARY | 2024-04-13 15:42 | XMS_ITS | Encounter Summary ---
Author Organization [facility] Address [facility] [place] [address] Care Team Providers Care Auto Inspection Specialist Name Role Phone Rodney Padilla MD Primary Care Provider +1- [phone] Encounter Details Date Type Department Care Team [...] 05/01/2024 11:20 AM EDT Appointment Mammography/[place] [address] Rodney Padilla MD [address] [place] [address] 05/01/2024 1:45 PM EDT [place] [address] Juanpablo Hernandez MD [facility] [place] [address] 05/23/2024 2:45 PM EST Clinical Support Family Medicine at [facility] [address] [place] [address] Julia Low [facility] 01/30/2025 1:30 PM EDT Laboratory Appointment Lab at [facility] Hematology Oncology [address] [place] [address] 01/30/2025 3:[address] [place] [address] Arturo Cordero MD [facility] DR [place] [address] 01/30/2025 4:15 PM EDT Office Visit [place] [address] Arturo Cordero MD [facility] DR [place] [address] documented as of this encounter Visit Diagnoses Not on filedocumented in this encounter Care Teams Auto Inspection Specialist Relationship Specialty Start Date End Date Rodney Padilla MD [address] [place] [place] [address] PCP - General 07/18/22 04/09/24 documented as of this encounter
--- OUTSIDE RECORDS SUMMARY | 2024-04-13 15:42 | XMS_ITS | Encounter Summary ---
Author Organization [facility] Address [facility] [place] [address] Care Team Providers Care Meat Sales And Storage Manager Name Role Phone Rodney Padilla MD Primary Care Provider +1- [phone] Reason for Visit * Reason Comments Medication Refill Encounter Details Date Type Department Care Team (Late st Contact Info) Description 02/26/2023 Refill Family Medicine at [facility] [address] [place] [address] Luis E Narayan MD [facility] DR LIL[address] [place] [address] Mixed hyperlipidemia Social History Tobacco Use Types [...] 11:20 AM EDT Appointment Mammography/[place] [address] Rodney Padilla MD [address] [place] [address] 05/01/2024 1:45 PM EDT Office [place] [address] Juanpablo Hernandez MD [facility] [place] [address] 05/23/2024 2:45 PM EST Clinical Support Family Medicine at [facility] [address] [place] [address] Julia Low [facility] 01/30/2025 1:30 PM EDT Laboratory Appointment Lab at [facility] [place]ology Oncology [address] [place] [address] 01/30/2025 3:[address] [place] [address] Arturo Cordero MD [facility] DR [place] [address] 01/30/2025 4:15 PM EDT Office Visit Hematology [place] [address] Arturo Cordero MD [facility] DR [place] [address] documented as of this encounter Visit Diagnoses Diagnosis Mixed hyperlipidemia documented in this encounter Care Teams Meat Sales And Storage Manager Relationship Specialty Start Date End Date Rodney Padilla MD [address] [place] [place] [address] PCP - General 07/18/22 04/09/24 documented as of this encounter
--- OUTSIDE RECORDS SUMMARY | 2024-04-13 15:42 | XMS_ITS | Encounter Summary ---
Author Organization Formerly [facility] [place] [address] Care Team Providers Care Remelt Furnace Expediter Name Role Phone Rodney Padilla MD Primary Care Provider +1- [phone] Reason for Visit * Reason Onset Date Comments Leg Swelling 04/14/2023 Encounter Details Date Type Department Care Team (Late st Contact Info) Description 04/14/2023 Nurse Triage Family Medicine at [facility] [address] [place] [address] Rani Menard, RN Leg Swelling Social History [...] 3:56 PM EDT Copied from [facility] #[id number]. Topic: Triage - Triage >> Apr 14, [...] 05/01/2024 11:20 AM EDT Appointment Mammography/[place] [address] Rodney Padilla MD [address] [place] [address] 05/01/2024 1:45 PM EDT Office [place] [address] Juanpablo Hernandez MD [facility] [place] [address] 05/23/2024 2:45 PM EST Clinical Support Family Medicine at [facility] [address] [place] [address] Julia Low [facility] 01/30/2025 1:30 PM EDT Laboratory Appointment Lab at [facility] Hematology Oncology [address] [place] [address] 01/30/2025 3:[address] [place] [address] Arturo Cordero MD [facility] DR [place] [address] 01/30/2025 4:15 PM EDT Office Visit [place]ematology [place] [address] Arturo Cordero MD [facility] DR [place] [address] documented as of this encounter Visit Diagnoses Not on filedocumented in this encounter Care Teams Remelt Furnace Expediter Relationship Specialty Start Date End Date Rodney Padilla MD [address] [place] [place] [address] PCP - General 07/18/22 04/09/24 documented as of this encounter
--- OUTSIDE RECORDS SUMMARY | 2024-04-13 15:42 | XMS_ITS | Encounter Summary ---
Author Organization [facility] Address [facility] [place] [address] Care Team Providers Care Developer Architect Name Role Phone Rodney Padilla MD Primary Care Provider +1- [phone] Encounter Details Date Type Department Care Team [...] 05/01/2024 11:20 AM EDT Appointment Mammography/[place] [address] Rodney Padilla MD [address] [place] [address] 05/01/2024 1:45 PM EDT Office [place] [address] Juanpablo Hernandez MD [facility] [address] 05/23/2024 2:45 PM EST Clinical Support Family Medicine at [facility] [address] [place] [address] Julia Low [facility] 01/30/2025 1:30 PM EDT Laboratory Appointment Lab at [facility] Hematology Oncology [address] [place] [address] 01/30/2025 3:[address] [place] [address] Arturo Cordero MD [facility] DR [place]AT[place] [address] 01/30/2025 4:15 PM EDT Office Visit Hematology [place] [address] Arturo Cordero MD [facility] DR [place]ATOLOG[place] [address] documented as of this encounter Visit Diagnoses Not on filedocumented in this encounter Care Teams Developer Architect Relationship Specialty Start Date End Date Rodney Padilla MD [address] [place] [address] PCP - General 07/18/22 04/09/24 documented as of this encounter
--- OUTSIDE RECORDS SUMMARY | 2024-04-13 15:42 | XMS_ITS | Encounter Summary ---
Author Organization [facility] Address [facility] [place] [address] Care Team Providers Care Rn Intake Name Role Phone Daryn Garrett MD Primary Care Provider Reason for Visit * Reason Comments Medication Refill Encounter Details Date Type Department Care Team (Late st Contact Info) Description 05/16/2023 Refill Family Medicine at [facility] [address] [place] [address] Tamera Khan APRN [facility] [address]IL[address] [place] [address] Type 2 diabetes mellitus with hyperglycemia, without [...] 05/01/2024 11:20 AM EDT Appointment Mammography/[place] [address] Rodney Padilla MD [address] [place] [address] 05/01/2024 1:45 PM EDT Office [place] [address] Juanpablo Hernandez MD [facility] [place] [address] 05/23/2024 2:45 PM EST Clinical Support Family Medicine at [facility] [address] [place] [address] Julia Low [facility] 01/30/2025 1:30 PM EDT Laboratory Appointment Lab at [facility] [place] On[place] [address] [place] [address] 01/30/2025 3:[address] [place] [address] Arturo Cordero MD [facility] DR [place] [address] 01/30/2025 4:15 PM EDT Office Visit Hematology [place] [address] Arturo Cordero MD [facility] DR [place] [address] documented as of this encounter Visit Diagnoses Diagnosis Type 2 diabetes mellitus with hyperglycemia, without long-term current use of insulin documented in this encounter Care Teams Rn Intake Relationship Specialty Start Date End Date Daryn Garrett MD [facility] [address] LILI [place] [address] PCP - General 04/10/24 documented as of this encounter
--- OUTSIDE RECORDS SUMMARY | 2024-04-13 15:42 | XMS_ITS | Encounter Summary ---
Author Organization [facility] Address [facility] [place] [address] Care Team Providers Care Director Teen Post Name Role Phone Rodney Padilla MD Primary Care Provider +1- [phone] Encounter Details Date Type Department Care Team [...] 05/01/2024 11:20 AM EDT Appointment Mammography/[place] [address] Rodney Padilla MD [address] [place] [place] [address] 05/01/2024 1:45 PM EDT Office [place] [address] Juanpablo Hernandez MD [facility] [place] [address] 05/23/2024 2:45 PM EST Clinical Support Family Medicine at [facility] [address] [place] [address] Julia Low [facility] 01/30/2025 1:30 PM EDT Laboratory Appointment Lab at [facility] Hematology Oncology [address] [place] [address] 01/30/2025 3:[address] [place] [address] Arturo Cordero MD [facility] [place] [address] 01/30/2025 4:15 PM EDT Office Visit Hematology [place] [address] Arturo Cordero MD [facility] [place] [address] documented as of this encounter Visit Diagnoses Not on filedocumented in this encounter Care Teams Director Teen Post Relationship Specialty Start Date End Date Rodney Padilla MD [address] [place] [place] [address] PCP - General 07/18/22 04/09/24 documented as of this encounter
--- OUTSIDE RECORDS SUMMARY | 2024-04-13 15:42 | XMS_ITS | Encounter Summary ---
Author Organization [facility] [place] [address] Care Team Providers Care Parts Counter Specialist Name Role Phone Rodney Padilla MD Primary Care Provider Reason for Referral * Consultation (Routine) - Closed Specialty Diagnoses / Procedures Referred By Gonzalez kumari Referred To Contact Diagnoses Chronic pain of right knee Calli Mariscal MD [facility] [address] [place] [address] Orthopaedics, [facility] [address] [place] [address] Referral ID Status Reason Start Date Expiration Date V isits Requested Visits Authorized [id number] Closed Consult, Test & Treat 02/22/2023 08/21/2023 1 1 Reason for Visit * Reason Comments Bilateral Knee Pain Rt is worse Referral To Ortho Encounter Details Date Type Department Care Team (Late st Contact Info) Description 02/22/2023 11:30 AM EDT Office Visit [facility] at [facility] [address] [place] [address] Calli Mariscal MD [facility] [place] [address] Chronic pain of right knee [...] 02/22/2023 11:30 AM EDT FAMILY MEDICINE AT [facility] [address] [place] [id number] Subjective: CHART REVIEW: Patient ID: Alize Gramajo [...] List Diagnosis Code 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 Yes fluticasone propionate (Flonase) 50 mcg/actuation [place], Suspension 1 spray by Each Nare route [...] Yes Nebulizer Accessories Misc 1 each by [facility].(Non-Drug; Combo Route) route every 4 hours as [...] 11:20 AM EDT Appointment Mammography/[place] [address] Rodney Padilla MD [address] [place] [place] [address] 05/01/2024 1:45 PM EDT Office Visit [place] [address] Juanpablo Hernandez MD [facility] [place] [address] 05/23/2024 2:45 PM EST Clinical Support [facility] at [facility] [address] [place] [address] Julia Low [facility] 01/30/2025 1:30 PM EDT Laboratory Appointment Lab at [facility] Hematology Oncology [address] [place] [address] 01/30/2025 3:[address] [place] [address] Arturo Cordero MD [facility] DR HEMATOLOGY [place] [address] 01/30/2025 4:15 PM EDT Office Visit Hematology [place] [address] Arturo Cordero MD [facility] DR HEMATOLOGY [place] [address] Scheduled Referrals Name Type Priority Associated Diagnoses Order Schedule Referral to Orthopaedics Outpatient Referral Routine Chronic pain of right knee Ordered: 02/22/2023 documented as of this encounter Visit Diagnoses Diagnosis Chronic pain of right knee documented in this encounter Care Teams Parts Counter Specialist Relationship Specialty Start Date End Date Rodney Padilla MD [address] [place] [address] PCP - General 07/18/22 04/09/24 documented as of this encounter
--- OUTSIDE RECORDS SUMMARY | 2024-04-13 15:42 | XMS_ITS | Encounter Summary ---
Author Organization [facility] [place] [address] Care Team Providers Care Concrete Mixing Plant Superintendent Name Role Phone Rodney Padilla MD Primary Care Provider [phone] Reason for Visit * Reason Onset Date Comments Prior Authorization 07/12/2023 Dexcom G7 Se nsor Encounter Details Date Type Department Care Team (Late st Contact Info) Description 07/12/2023 Telephone Family Medicine at [facility] [address] [place] [address] Aida Aguayo, PHLEBOTOMY SUPPORT TECH Prior Authorization (Dexcom G7 Sensor) Social History [...] Outcome: PA Not Needed [facility] Blood Glucose Sensors and Receivers. * Telephone Encounter - Aida Aguayo CMA - 07/26/2023 9:28 AM EST Called insurance. Unable to speak with a office services representative. Resubmitted PA through [facility] Anderson: [id number] * Telephone Encounter - Arlene Palomo CMA - 07/14/2023 10:53 AM EST Images from the original note were not included. PA resubmitted to the insurance with the complete member ID number. Anderson [id number] * Telephone Encounter - Aida Aguayo CMA - 07/12/2023 8:45 AM EST PA Submitted Submitted Date: Date Submitted: 07/12/2023 Medication Prior Authorization Patient: Alize Gramajo Patient : 1960 Insurance Company: [id number] Sent via: [facility] Anderson: [id number] Physician: Rodney Padilla MD Medication Requested: Blood-Glucose Sensor (Dexcom G7 Sensor) Device Frequency/Si Device by [facility]Non-Drug; Combo Route) route every 10 days. Disp: [...] 05/01/2024 11:20 AM EDT Appointment Mammography/[place] [address] Rodney Padilla MD [address] [place] [address] 05/01/2024 1:45 PM EDT Office [place] [address] Juanpablo Hernandez MD [facility] [place] [place] [address] 05/23/2024 2:45 PM EST Clinical Support Family Medicine at [facility] [address] [place] [address] Julia Low, [facility] 01/30/2025 1:30 PM EDT Laboratory Appointment Lab [place] [facility] [place] [address] [place] [address] 01/30/2025 3:[address] [place] [address] Arturo Cordero MD [facility] [place] [address] 01/30/2025 4:15 PM EDT Office Visit Hematology [place] [address] Arturo Cordero MD [facility] [place] [address] documented as of this encounter Visit Diagnoses Not on filedocumented in this encounter Care Teams Concrete Mixing Plant Superintendent Relationship Specialty Start Date End Date Rodney Padilla MD [address] [place] [place] [address] PCP - General 07/18/22 04/09/24 documented as of this encounter
--- OUTSIDE RECORDS SUMMARY | 2024-04-13 15:42 | XMS_ITS | Encounter Summary ---
Author Organization [facility] Address [facility] [place] [address] Care Team Providers Care Rn Labor And Delivery Name Role Phone Daryn Garrett MD Primary Care Provider Reason for Visit * Reason Comments Medication Refill Encounter Details Date Type Department Care Team (Late st Contact Info) Description 04/02/2023 Refill Family Medicine at [facility] [address] [place] [address] Luis E Narayan MD [facility] DR [address]IL[address] [place] [address] Social History Tobacco Use Types Packs/Day Years [...] 05/01/2024 11:20 AM EDT Appointment Mammography/[place] [address] Rodney Padilla MD [address] [place] [address] 05/01/2024 1:45 PM EDT Office [place] [address] Juanpablo Hernandez MD [facility] [place] [address] 05/23/2024 2:45 PM EST Clinical Support Family Medicine at [facility] [address] [place] [address] Julia Low [facility] 01/30/2025 1:30 PM EDT Laboratory Appointment Lab [place] [facility] [place] On[place] [address] [place] [address] 01/30/2025 3:[address] [place] [address] Arturo Cordero MD [facility] [place] [address] 01/30/2025 4:15 PM EDT Office Visit Hematology [place] [address] Arturo Cordero MD [facility] [place] [address] documented as of this encounter Visit Diagnoses Not on filedocumented in this encounter Care Teams Rn Labor And Delivery Relationship Specialty Start Date End Date Daryn Garrett MD [facility] DR LILI [place] [address] PCP - General 04/10/24 documented as of this encounter
--- OUTSIDE RECORDS SUMMARY | 2024-04-13 15:42 | XMS_ITS | Encounter Summary ---
Author Organization [facility] [place] [address] Care Team Providers Care Record Pressman Name Role Phone Rodney Padilla MD Primary Care Provider [phone]- [phone] Reason for Visit * Reason Onset Date Comments Medication Refill 06/16/2023 Encounter Details Date Type Department Care Team (Late Contact Info) Description 06/16/2023 Telephone Family Medicine at [facility] [address] [place] [address] Rodney Padilla MD [address] [facility] [place] [address] Medication Refill Social History Tobacco Use Types [...] Name & Location: [facility] [address] [phone] Caller would like clinic to reach out to the Pharmacy: yes Patient declined scheduling an appointment: no Ask caller their first and last name and relationship to the patient: self Best time to call back: yes Ok to leave a message: yes Ok to send [facility] message: yes Did you contact your pharmacy: yes Patient called stating the pharmacy does not have any extra refills for her. documented in this encounter Plan of Treatment Upcoming Encounters Date Type Department Care Team (Late st Contact Info) Description 05/01/2024 11:20 AM EDT Appointment Mammography/[place] [address] Rodney Padilla MD [address] [place] [address] 05/01/2024 1:45 PM EDT Office [place] [address] Juanpablo Hernandez MD [facility] [place] [address] 05/23/2024 2:45 PM EST Clinical Support Family Medicine at [facility] [address] [place] [address] Julia Low [facility] 01/30/2025 1:30 PM EDT Laboratory Appointment Lab [place] [facility] [place] [address] [place] [address] 01/30/2025 3:[address] [place] [address] Arturo Cordero MD [facility] DR HEMATOLOG[place] [address] 01/30/2025 4:15 PM EDT Office Visit Hematology [place] [address] Arturo Cordero MD [facility] DR [place]EMATOLOG[place] [address] documented as of this encounter Visit Diagnoses Not on filedocumented in this encounter Care Teams Record Pressman Relationship Specialty Start Date End Date Rodney Padilla MD [address] [place] [address] PCP - General 07/18/22 04/09/24 documented as of this encounter
--- OUTSIDE RECORDS SUMMARY | 2024-04-13 15:42 | XMS_ITS | Encounter Summary ---
Author Organization [facility] [place] [address] Care Team Providers Care Pastrycook Name Role Phone Rodney Padilla MD Primary Care Provider +1- [phone] Reason for Visit * Reason Comments Other Leg fluid Diabetes Encounter Details Date Type Department Care Team (Latest Contact Info) Description 04/17/2023 4:00 PM EDT Office Visit Family Medicine at [facility] [address] [place] [address] Rodney Padilla MD [address] [facility] [place] [place] [address] Edema, unspecified type; Diabetic polyneuropathy associated with [...] tablet 5 fluticasone propionate (Flonase) 50 mcg/actuation [place], Suspension 1 spray by Each Nare [...] patient/family/caregiver Referring and communicating with other health regular senior care provider Documenting clinical information in the electronic or other health record Independently interpreting results Care coordination documented in this encounter Plan of Treatment Upcoming Encounters Date Type Department Care Team (Late st Contact Info) Description 05/01/2024 11:20 AM EDT Appointment Mammography/[place] [address] Rodney Padilla MD [address] [place] [address] 05/01/2024 1:45 PM EDT Office Visit [place] [address] Juanpablo Hernandez MD [facility] [place] [address] 05/23/2024 2:45 PM EST Clinical Support Family Medicine at [facility] [address] [place] [address] Julia Low, [facility] 01/30/2025 1:30 PM EDT Laboratory Appointment Lab at [facility] Hematology Oncology [address] [place] [address] 01/30/2025 3:[address] [place] [address] Arturo Cordero MD [facility] DR HEMATOLOGY [place] [address] 01/30/2025 4:15 PM EDT Office Visit Hematology [place] [address] Arturo Cordero MD [facility] DR HEMATOLOGY [place] [address] documented as of this encounter Visit Diagnoses Diagnosis Edema, unspecified type Diabetic polyneuropathy associated with type 2 diabetes mellitus Type 2 diabetes mellitus with diabetic polyneuropathy, with long-term current use of insulin Skin lesion Unspecified disorder of skin and subcutaneous tissue documented in this encounter Care Teams Pastrycook Relationship Specialty Start Date End Date Rodney Padilla MD [address] [place] [address] PCP - General 07/18/22 04/09/24 documented as of this encounter
--- OUTSIDE RECORDS SUMMARY | 2024-04-13 15:42 | XMS_ITS | Encounter Summary ---
Author Organization [facility] Address [facility] [place] [address] Care Team Providers Care Assistant Floor Covering Printer Name Role Phone Rodney Padilla MD Primary Care Provider Reason for Visit * Reason Comments Eye Problem Encounter Details Date Type Department Care Team (Late st Contact Info) Description 02/22/2023 12:45 PM EDT Office [place] [address] Juanpablo Hernandez MD [facility] [place] [address] Malignant melanoma of conjunctiva, left Social History [...] of the documentation in this encounter. Juanpablo Hernnadez MD. documented in this encounter Plan of Treatment Upcoming Encounters Date Type Department Care Team (Late st Contact Info) Description 05/01/2024 11:20 AM EDT Appointment Mammography/[place] [address] Rodney Padilla MD [address] [place] [place] [address] 05/01/2024 1:45 PM EDT Office [place] [address] Juanpablo Hernandez MD [facility] [place] [address] 05/23/2024 2:45 PM EST Clinical Support Family Medicine at [facility] [address] [place] [address] Julia Low [facility] 01/30/2025 1:30 PM EDT Laboratory Appointment Lab at [facility] Hematology Oncology [address] [place] [address] 01/30/2025 3:[address] [place] [address] Arturo Cordero MD [facility] [address] [place] [address] 01/30/2025 4:15 PM EDT Office Visit Hematology [place] [address] Arturo Cordero MD [facility] [address] [place] [address] documented as of this encounter Procedures Procedure [...] left documented in this encounter Care Teams Assistant Floor Covering Printer Relationship Specialty Start Date End Date Rodney Padilla MD [address] [place] [address] PCP - General 07/18/22 04/09/24 documented as of this encounter
--- OUTSIDE RECORDS SUMMARY | 2024-04-13 15:43 | XMS_ITS | Encounter Summary ---
Author Organization [facility] Address [facility] [place] [address] Care Team Providers Care Customer Equipment Engineer Name Role Phone Rodney Padilla MD Primary Care Provider [phone]- [phone] Reason for Visit * Reason Comments Medication Management Encounter Details Date Type Department Care Team (Late st Contact Info) Description 12/01/2022 12:45 PM EDT TH Visit (TeleHealth) Family Medicine at [facility] [address] [place] [address] Julia Low, [facility] Medication management Social History Tobacco [...] 178 -November 188 144 -November 186 AM PHI PM BED Average 177 152 143 136 137 139 Lowest 137 130 143 93 137 117 Highest 199 176 143 182 137 160 Daily Avg 153 eA1c [id number] Prior Averages: 08/26/21 09/09/21 09/24/21 11/14/21 Daily Avg 157 168 131 138 175 eA1c 8.443248 8.46 7.20 7.44 8.7 Acute complications of [...] 5 ??? fluticasone propionate (Flonase) 50 mcg/actuation [place], Suspension 1 spray by Each Nare route [...] ??? Nebulizer Accessories Misc 1 each by [facility] [place].(Non-Drug; Combo Route) route every 4 hours as [...] 1 each 11 ??? FreeStyle Sanjana 2 [place] Misc 1 each by Other route daily. [...] 05/01/2024 11:20 AM EDT Appointment Mammography/[place] [address] Rodney Padilla MD [address] [place] [address] 05/01/2024 1:45 PM EDT [place] [address] Juanpablo Hernandez MD [facility] [place] [address] 05/23/2024 2:45 PM EST Clinical Support Family Medicine at [facility] [address] [place] [address] Julia Low [facility] 01/30/2025 1:30 PM EDT Laboratory Appointment Lab at [facility] Hematology Oncology [address] [place] [address] 01/30/2025 3:[address] [place] [address] Arturo Cordero MD [facility] DR [place] [address] 01/30/2025 4:15 PM EDT Office Visit [place] [address] Arturo Cordero MD [facility] [place] [address] documented as of this encounter Visit Diagnoses Diagnosis Medication management Encounter for long-term (current) use of other medications documented in this encounter Care Teams Customer Equipment Engineer Relationship Specialty Start Date End Date Rodney Padilla MD [address] [place] [address] PCP - General 07/18/22 04/09/24 documented as of this encounter
--- OUTSIDE RECORDS SUMMARY | 2024-04-13 15:43 | XMS_ITS | Encounter Summary ---
[place] [address] Care Team Providers Care Education Rn Name Role Phone Rodney Padilla MD Primary Care Provider [phone]- [phone] Reason for Visit * Diagnostic Test (Routine) - Closed Specialty Diagnoses / Procedures Referred By Gonzalez kumari Referred To Contact Radiology Diagnoses Dyspepsia Nausea without vomiting Procedures NM Gastric Emptying Scan Alejandra Pop, WINTER INTERN [address] [place] [address] [place] [address] Referral ID Status Reason Start Date Expiration Date V isits Requested Visits Authorized [id number] Closed Specialty Service Requested 06/17/2022 12/17/2023 1 1 Encounter Details Date Type Department Care Team (Latest Contact Info) Description 10/18/2022 10:22 AM EDT - 10/18/2022 11:59 PM EDT Hospital Encounter [place] [address] Alejandra Pop APRN [address] [place] [address] Discharge Disposition: Home Social History [...] No 06/14/2021 Housing Stability Vital Sign Answer Ozile e Recorded In the last 12 months, [...] 09/26/2022 09/19/2023 fluticasone propionate (Flonase) 50 mcg/actuation [place], Suspension 1 spray by Each Nare [...] 1 each 12/10/2021 02/04/2023 FreeStyle Sanjana 2 [place] MiscIndications:diabe escobar mellitus 1 each by Other [...] 05/01/2024 11:20 AM EDT Appointment Mammography/[place] [address] Rodney Padilla MD [address] [place] [address] 05/01/2024 1:45 PM EDT Office [place] [address] Juanpablo Hernandez MD [facility] [place] [address] 05/23/2024 2:45 PM EST Clinical Support Family Medicine at [facility] [address] [place] [address] Julia Low, [facility] 01/30/2025 1:30 PM EDT Laboratory Appointment Lab at [facility] Hematology Oncology [address] [place] [address] 01/30/2025 3:[address] [place] [address] Arturo Cordero MD [facility] DR HEMATOLOGY [place] [address] 01/30/2025 4:15 PM EDT Office Visit Hematology [place] [address] Arturo Cordero MD [facility] DR HEMATOLOGY [place] [address] documented as of this encounter Procedures Procedure [...] who have questions please contact the health home care liaison that requested your imaging first. ? Electronically signed by: Brett Chapman MD, [facility] ([phone]), at 10/18/2022 3:12 PM Narrative 10/18/2022 3:12 [...] patients who have questions please contactthe health home care liaison that requested your imaging first. Alejandra Pop WINTER INTERN IMG [place] ORDERABLE S documented in this encounter Visit Diagnoses Not on filedocumented in this encounter Care Teams Education Rn Relationship Specialty Start Date End Date Rodney Padilla MD [address] [place] [address] PCP - General 07/18/22 04/09/24 documented as of this encounter
--- OUTSIDE RECORDS SUMMARY | 2024-04-13 15:43 | XMS_ITS | Encounter Summary ---
Author Organization [facility] Address [facility] [place] [address] Care Team Providers Care Supervisor Shaving And Splitting Name Role Phone Rodney Padilla MD Primary Care Provider [phone]- [phone] Reason for Visit * Reason Comments Medication Refill Encounter Details Date Type Department Care Team (Late st Contact Info) Description 12/15/2022 Refill Family Medicine at [facility] [address] [place] [address] Luis E Narayan MD [facility] DR LILI W[place] [address] Mixed hyperlipidemia Social History Tobacco Use Types [...] 05/01/2024 11:20 AM EDT Appointment Mammography/[place] [address] Rodney Padilla MD [address] [place] [address] 05/01/2024 1:45 PM EDT Office [place] [address] Juanpablo Hernandez MD [facility] [place] [address] 05/23/2024 2:45 PM EST Clinical Support [facility] at [facility] [address] [place] [address] Julia Low [facility] 01/30/2025 1:30 PM EDT Laboratory Appointment Lab at [facility] Hematology Oncology [address] [place] [address] 01/30/2025 3:[address] [place] [address] Arturo Cordero MD [facility] DR HEMATOLOGY [place] [address] 01/30/2025 4:15 PM EDT Office Visit Hematology [place] [address] Arturo Cordero MD [facility] [place]ATOLOGY [place] [address] documented as of this encounter Visit Diagnoses Diagnosis Mixed hyperlipidemia documented in this encounter Care Teams Supervisor Shaving And Splitting Relationship Specialty Start Date End Date Rodney Padilla MD [address] [place] [address] PCP - General 07/18/22 04/09/24 documented as of this encounter
--- OUTSIDE RECORDS SUMMARY | 2024-04-13 15:43 | XMS_ITS | Encounter Summary ---
Author Organization [facility] Address [facility] [place] [address] Care Team Providers Care Mds Rn Name Role Phone Rodney Padilla MD Primary Care Provider [phone] Encounter Details Date Type Department Care Team (Late st Contact Info) Description 11/30/2022 4:20 PM EDT Office Visit Dermatology at [facility] [address] [place] [address] Alonso Young MD [facility] [address] [place] [address] Seborrheic keratoses; Multiple nevi; Lentigines; Aranda angioma; [...] a full skin exam. []Note routed to accredited legal secretary [x]Recall placed in scheduling system []Appointment scheduled at checkout Scribe attestation: SONY Lal has performed the documentation for this encounter in the presence of and acting as a scribe for Alonso Young MD. I performed the above scribed service and agree with the accuracy of the documentation in this encounter. Reviewed and signed by: Alonso Young MD Dermat[facility] Patient seen and evaluated with staff gas station cashier: Ren Mitchell MD Dermatology [facility] * Ren Mitchell MD - 11/30/2022 4:20 [...] 05/01/2024 11:20 AM EDT Appointment Mammography/[place] [address] Rodney Padilla MD [address] [place] [address] 05/01/2024 1:45 PM EDT Office Visit Ophthalmology at [place] [phone] Juanpablo Hernandez MD [facility] [place] [address] 05/23/2024 2:45 PM EST Clinical Support Family Medicine at [facility] [address] [place] [address] Julia Low [facility] 01/30/2025 1:30 PM EDT Laboratory Appointment Lab at [facility] [place] Hematology Oncology [address] [place] [address] 01/30/2025 3:[address] [place] [address] Arturo Cordero MD [facility] DR [place] [address] 01/30/2025 4:15 PM EDT Office Visit Hematology [place] [address] Arturo Cordero MD [facility] DR [place] [address] documented as of this encounter Visit Diagnoses Diagnosis Seborrheic keratoses Multiple nevi Benign neoplasm of skin, site unspecified Lentigines Other dyschromia Aranda angioma Nevus, non-neoplastic History of malignant melanoma of eye Family history of other specified malignant neoplasm Seborrheic keratoses, inflamed documented in this encounter Care Teams Mds Rn Relationship Specialty Start Date End Date Rodney Padilla MD [address] [place] [address] PCP - General 07/18/22 04/09/24 documented as of this encounter
--- OUTSIDE RECORDS SUMMARY | 2024-04-13 15:43 | XMS_ITS | Encounter Summary ---
[place] [address] Care Team Providers Care Dispatch Associate Name Role Phone Rodney Padilla MD Primary Care Provider [phone] Reason for Visit * Diagnostic Test (Routine) - Closed Specialty Diagnoses / Procedures Referred By Gonzalez kumari Referred To Contact Radiology Diagnoses Dyspepsia Nausea without vomiting Procedures NM Gastric Emptying Scan Alejandra Pop, PLATFORM BUILDER [address] [place] [address] [place] [address] Referral ID Status Reason Start Date Expiration Date V isits Requested Visits Authorized [id number] Closed Specialty Service Requested 06/17/2022 12/17/2023 1 1 Encounter Details Date Type Department Care Team (Latest Contact Info) Description 10/18/2022 10:22 AM EDT - 10/18/2022 11:59 PM EDT Hospital Encounter [place] [address] Alejandra Pop APRN [address] [place] [address] Discharge Disposition: Home Social History [...] 09/26/2022 09/19/2023 fluticasone propionate (Flonase) 50 mcg/actuation [place], Suspension 1 spray by Each Nare route [...] 1 each 12/10/2021 02/04/2023 FreeStyle Sanjana 2 [place] MiscIndications:diabe escobar mellitus 1 each by Other [...] 05/01/2024 11:20 AM EDT Appointment Mammography/[place] [address] Rodney Padilla MD [address] [place] [address] 05/01/2024 1:45 PM EDT Office [place] [address] [facility] [place] [place] [address] 05/23/2024 2:45 PM EST Clinical Support Family Medicine at [facility] [address] [place] [address] Julia Low, [facility] 01/30/2025 1:30 PM EDT Laboratory Appointment Lab at [facility] [place] Hematology Oncology [address] [place] [address] 01/30/2025 3:[address] [place] [address] [facility] [address] [place] [address] 01/30/2025 4:15 PM EDT Office Visit Hematology [place] [address] [facility] [address] [place] [address] documented as of this encounter Procedures Procedure [...] who have questions please contact the health careers adviser that requested your imaging first. ? Electronically signed by: Brett Chapman MD, [facility] ([phone]), at 10/18/2022 3:12 PM Narrative 10/18/2022 3:12 [...] patients who have questions please contactthe health careers adviser that requested your imaging first. Alejandra Pop PLATFORM BUILDER IMG [place] ORDERABLE S documented in this encounter Visit Diagnoses Not on filedocumented in this encounter Care Teams Dispatch Associate Relationship Specialty Start Date End Date Rodney Padilla MD [address] [place] [address] PCP - General 07/18/22 04/09/24 documented as of this encounter
--- OUTSIDE RECORDS SUMMARY | 2024-04-13 15:43 | XMS_ITS | Encounter Summary ---
[place] [address] Care Team Providers Care Field Investigator Name Role Phone Rodney Padilla MD Primary Care Provider Reason for Referral * Diagnostic Test (Routine) - Closed Specialty Diagnoses / Procedures Referred By Contac t Referred To Contact Radiology Diagnoses Dyspepsia Nausea without vomiting Procedures NM Gastric Emptying Scan Alejandra Pop COMMERCIAL PROPERTY ADMINISTRATOR [address] [place] [address] [place] [address] Referral ID Status Reason Start Date Expiration Date V isits Requested Visits Authorized [id number] Closed Specialty Service Requested 06/17/2022 12/17/2023 1 1 Reason for Visit * Diagnostic Test (Routine) - Closed Specialty Diagnoses / Procedures Referred By Contac t Referred To Contact Radiology Diagnoses Dyspepsia Nausea without vomiting Procedures NM Gastric Emptying Scan Alejandra Pop APRN [address] [place] [address] [place] [address] Referral ID Status Reason Start Date Expiration Date V isits Requested Visits Authorized [id number] Closed Specialty Service Requested 06/17/2022 12/17/2023 1 1 Encounter Details Date Type Department Care Team (Latest Contact Info) Description 10/18/2022 10:21 AM EDT Hospital Encounter Nuclear Medicine at [facility] [place] [address] Alejandra Pop, COMMERCIAL PROPERTY ADMINISTRATOR [address] [place] [address] Dyspepsia; Nausea without vomiting Discharge Disposition: Home [...] 09/26/2022 09/19/2023 fluticasone propionate (Flonase) 50 mcg/actuation [place], Suspension 1 spray by [...] 1 each 12/10/2021 02/04/2023 FreeStyle Sanjana 2 [place] MiscIndications:diabe escobar mellitus 1 each by Other [...] 05/01/2024 11:20 AM EDT Appointment Mammography/[place] [address] Rodney Padilla MD [address] [place] [address] 05/01/2024 1:45 PM EDT Office [place] [address] Juanpablo Hernandez MD [facility] [place] [address] 05/23/2024 2:45 PM EST Clinical Support Family Medicine at [facility] [address] [place] [address] Julia Low LTAC, [facility] 01/30/2025 1:30 PM EDT Laboratory Appointment Lab at [facility] Hematology Oncology [address] [place] [address] 01/30/2025 3:[address] [place] [address] Arturo Cordero MD [facility] HEMATOLOGY AND ONCOLOGY [place], [place] [address] 01/30/2025 4:15 PM EDT Office Visit Hematology [place] [address] Arturo Cordero MD [facility] [place] [address] documented as of this encounter Procedures Procedure [...] questions please contact the health child care lead teacher that requested your imaging first. ? Electronically signed by: Brett Chapman MD, [facility] ([phone]), at 10/18/2022 3:12 PM Narrative 10/18/2022 3:12 [...] have questions please contactthe health child care lead teacher that requested your imaging first. Alejandra Huang Donn COMMERCIAL PROPERTY ADMINISTRATOR IMG [place] ORDERABLE S documented in this [...] mCi documented in this encounter Care Teams Field Investigator Relationship Specialty Start Date End Date Rodney Padilla MD [address] [place] [address] PCP - General 07/18/22 04/09/24 documented as of this encounter
--- OUTSIDE RECORDS SUMMARY | 2024-04-13 15:43 | XMS_ITS | Encounter Summary ---
Author Organization [facility] Address One [facility] [place] [address] Care Team Providers Care Mutual Fund Sales Agent Name Role Phone Rodney Padilla MD Primary Care Provider [phone]- [phone] Reason for Visit * Reason Comments Diabetes Encounter Details Date Type Department Care Team (Late st Contact Info) Description 11/03/2022 12:45 PM EDT TH Visit (TeleHealth) Family Medicine at [facility] [address] [place] [address] Julia Low, [facility] Type 2 diabetes mellitus without [...] encounter Progress Notes * Julia Low [facility] - 11/03/2022 12:45 PM EDT Clinical Pharmacist [...] [phone] Daily Avg 175 eA1c [phone] Prior Averages: 08/26/21 09/09/21 09/24/21 11/14/21 Daily Avg 157 168 131 138 eA1c [phone] 8.46 7.20 7.44 Acute complications of diabetes: [...] 5 ??? fluticasone propionate (Flonase) 50 mcg/actuation [place], Suspension 1 spray by Each Nare route [...] 1 each 11 ??? FreeStyle [place] 2 [place] Misc 1 each by Other route daily. [...] 05/01/2024 11:20 AM EDT Appointment Mammography/[place] [address] Rodney Padilla MD [address] [place] [address] 05/01/2024 1:45 PM EDT Office [place] [address] Juanpablo Hernandez MD [facility] [place] [address] 05/23/2024 2:45 PM EST Clinical Support [facility] at [address] [phone] Julia Low RPH 01/30/2025 1:30 PM EDT Laboratory Appointment Lab [place] [facility] [place] [address] [place] [address] 01/30/2025 3:[address] [place] [address] Arturo Cordero MD [facility] HEMATOLOGY AND ONCOLOGY [place], [place] [phone] 01/30/2025 4:15 PM EDT Office Visit Hematology [place] [address] Arturo Cordero MD [facility] DR HEMATOLOGY [place] [address] documented as of this encounter Visit Diagnoses Diagnosis Type 2 diabetes mellitus without long-term current use of insulin documented in this encounter Care Teams Mutual Fund Sales Agent Relationship Specialty Start Date End Date Rodney Padilla MD [address] [place] [address] PCP - General 07/18/22 04/09/24 documented as of this encounter
--- OUTSIDE RECORDS SUMMARY | 2024-04-13 15:43 | XMS_ITS | Encounter Summary ---
Author Organization [facility] [place] [address] Care Team Providers Care Bilingual Student Tutor Name Role Phone Rodney Padilla MD Primary Care Provider Reason for Referral * Diagnostic Test (Routine) - Closed Specialty Diagnoses / Procedures Referred By Contac t Referred To Contact Radiology Diagnoses Malignant melanoma of conjunctiva, left Procedures CT Neck Soft Tissue w Contrast (Generic) Arturo Cordero MD [facility] DR HEMATOLOGY [place] [address] [facility] [place] [address] Referral ID Status Reason Start Date Expiration Date V isits Requested Visits Authorized [id number] Closed Specialty Service Requested 12/29/2022 06/30/2024 1 1 * Diagnostic Test (Routine) - Closed Specialty Diagnoses / Procedures Referred By Contchrissy t Referred To Contact Radiology Diagnoses Malignant melanoma of conjunctiva, left Renal cell cancer, left Procedures CT Chest Abdomen Pelvis w Contrast (Generic) Arturo Cordero MD [facility] DR HEMATOLOGY [place] [address] [facility] [place] [address] Referral ID Status Reason Start Date Expiration Date V isits Requested Visits Authorized [id number] Closed Specialty Service Requested 12/29/2022 06/30/2024 1 1 * Diagnostic Test (Routine) - Closed Specialty Diagnoses / Procedures Referred By Contac t Referred To Contact Radiology Diagnoses Malignant melanoma of conjunctiva, left Procedures CT Neck Soft Tissue w Contrast (Generic) Arturo Cordero MD [facility] DR HEMATOLOGY [place] [address] [facility] [place] [address] Referral ID Status Reason Start Date Expiration Date V isits Requested Visits Authorized [id number] Closed Specialty Service Requested 12/29/2022 06/30/2024 1 1 * Diagnostic Test (Routine) - Closed Specialty Diagnoses / Procedures Referred By Contac t Referred To Contact Radiology Diagnoses Malignant melanoma of conjunctiva, left Renal cell cancer, left Procedures CT Chest Abdomen Pelvis w Contrast (Generic) Arturo Cordero MD [facility] DR HEMATOLOGY [place] [address] [facility] [place] [address] Referral ID Status Reason Start Date Expiration Date V isits Requested Visits Authorized [id number] Closed Specialty Service Requested 12/29/2022 06/30/2024 1 1 Reason for Visit * Reason Comments Follow-up Encounter Details Date Type Department Care Team (Late st Contact Info) Description 12/29/2022 12:45 PM EDT Office Visit Hematology [place] [address] Arturo Cordero MD [facility] DR HEMATOLOGY [place] [address] Malignant melanoma of conjunctiva, left [...] from the original note were not included. [facility] NOTE REFERING PHYSICIAN: Dr. [...] management - fall 2018: saw a new director learning and development and was referred to Dr. 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 Medina - 03/31/2020: saw her director learning and development Dr. Hernandez and was noted to have [...] metastatic disease HPI: Alize Gramajo is a 62 y.o. [...] Asthma uses inhalerswith good effect Atherosclerosis of [place] coronary artery of [place] heart with angina pectoris 10/09/2007 History of [...] 3.47) performed by Juanpablo Hernandez MD at [facility] OSC PRO EXCIS CORNEA LESN Left 05/14/2020 EXCISION OF LESION, CORNEA, EXCEPT PTERYGIUM (WRVU 7.5) performed by Juanpablo Hernandez MD at [facility] OSC PRO LAP, PARTIAL NEPHRECTOMY Left 06/28/2019 LAPAROSCOPY, PARTIAL NEPHRECTOMY, ROBOTIC ASSIST (WRVU 27.41) performed by Avila Medina MD at [facility] MAIN OR PRO PLACE AMNIOTIC MEMBRANE OCULAR SURFACE;SINGLE LAYER SUTURED Left 05/14/2020 PLACEMENT OF AMNIOTIC MEMBRANE ON THE OCULAR SURFACE,SINGLE LAYER,SUTURED (WRVU 2.5) performed by Juanpablo Hernandez MD at [facility] OSC MEDS: Alcohol Swabs, LORazepam, Nebulizer [...] with significant other 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, 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 [...] EDT Appointment Mammography/[place] [address] Rodney Padilla MD [address] [place] [address] 05/01/2024 1:45 PM EDT Office Visit [place] [address] Juanpablo Hernandez MD [facility] [place] [address] 05/23/2024 2:45 PM EST Clinical Support [facility] [address] [place] [phone] Julia Low [facility] 01/30/2025 1:30 PM EDT Laboratory Appointment Lab at [facility] Hematology Oncology [address] [place] [address] 01/30/2025 3:[address] [place] [address] Arturo Cordero MD [facility] DR HEMATOLOGY [place] [address] 01/30/2025 4:15 PM EDT Office Visit Hematology [place] [address] Arturo Cordero MD [facility] DR HEMATOLOGY AND ONCOLOGY [place], [place] [phone] documented as of this encounter Results * [...] have questions please contact the health home day care provider that requested your imaging first. ? Narrative [...] The orbits are not included within the [id number]. No masses along the visualized upper aerodigestive [...] The orbits are not included within the [id number]-ct-worp. No masses alongthe visualized upper aerodigestive tract. [...] who have questions please contactthe health home day care provider that requested your imaging first. Arturo Cordero [...] have questions please contact the health home day care provider that requested your imaging first. ? Narrative [...] the resident's interpretationand agree with the findings, Zian Izaguirre MD at 08/03/2023 4:55 PM Thank you for letting us participate in the care of this patient. If youare a health care provider and have any questions regarding this report,please contact the number below. For patients who have questions please contactthe health home day care provider that requested your imaging first. Arturo Cordero [...] have questions please contact the health home day care provider that requested your imaging first. ? Narrative [...] after the intravenous administration of 110 mL [id number]. COMPARISON: CT neck 06/23/2022 FINDINGS: No large [...] who have questions please contactthe health home day care provider that requested your imaging first. Arturo Cordero MD IM CT ORDERABLES * CT Chest Abdomen Pelvis [...] have questions please contact the health home day care provider that requested your imaging first. ? Narrative [...] who have questions please contactthe health home day care provider that requested your imaging first. Arturo Cordero MD IMG CT ORDERABLES documented in this encounter Visit Diagnoses Diagnosis Malignant melanoma of conjunctiva, left- Primary Renal cell cancer, left Malignant melanoma of conjunctiva, left Renal cell cancer, left Malignant melanoma of conjunctiva, left Renal cell cancer, left documented in this encounter Care Teams Bilingual Student Tutor Relationship Specialty Start Date End Date Rodney Padilla MD [address] [place] [address] PCP - General 07/18/22 04/09/24 documented as of this encounter
--- OUTSIDE RECORDS SUMMARY | 2024-04-13 15:43 | XMS_ITS | Encounter Summary ---
Author Organization [facility] [place] [address] Care Team Providers Care Mutuel Clerk Name Role Phone Rodney Padilla MD Primary Care Provider [phone]- [phone] Reason for Visit * Reason Onset Date Comments Medication Problem 11/08/2022 Tresiba Encounter Details Date Type Department Care Team (Late Contact Info) Description 11/08/2022 Telephone Family Medicine at [facility] [address] [place] [phone] Rodney Padilla MD [address] [facility] [facility] [place] [address] Medication Problem (Tresiba /) Social History Tobacco [...] used to it. Patient seen by Saida Low 11/03 Will check with her and PCP to see if this is expected for starting this medication documented in this encounter Plan of Treatment Upcoming Encounters Date Type Department Care Team (Late st Contact Info) Description 05/01/2024 11:20 AM EDT Appointment Mammography/[place] [address] Rodney Padilla MD [address] [facility] [place] [address] 05/01/2024 1:45 PM EDT Office [place] [address] Juanpablo Hernandez MD [facility] DR OPHTHALMOLOGY [place], [place] [address] 05/23/2024 2:45 PM EST Clinical Support Family Medicine at [facility] [address] [place] [phone] Julia Low [facility] 01/30/2025 1:30 PM EDT Laboratory Appointment Lab at [facility] Hematology Oncology [address] [place] [phone] 01/30/2025 3:[address] [place] [address] Arturo Cordero MD [facility] HEMATOLOGY [place] [address] 01/30/2025 4:15 PM EDT Office Visit Hematology [place] [address] Arturo Cordero MD [facility] DR HEMATOLOGY [place] [address] documented as of this encounter Visit Diagnoses Not on filedocumented in this encounter Care Teams Mutuel Clerk Relationship Specialty Start Date End Date Rodney Padilla MD [address] [place] [address] PCP - General 07/18/22 04/09/24 documented as of this encounter
--- OUTSIDE RECORDS SUMMARY | 2024-04-13 15:43 | XMS_ITS | Encounter Summary ---
Author Organization [facility] [place] [address] Care Team Providers Care Desktop Manager Name Role Phone Rodney Padilla MD Primary Care Provider +1- [phone] Reason for Visit * Reason Onset Date Comments Medication Refill 02/04/2023 Encounter Details Date Type Department Care Team (Late st Contact Info) Description 02/04/2023 Refill Family Medicine at [facility] [address] [place] [address] Bereket Latham PA [facility] [place] [address] COPD Social History Tobacco Use Types Packs/Day [...] 05/01/2024 11:20 AM EDT Appointment Mammography/[place] [address] Rodney Padilla MD [address] [facility] [place] [address] 05/01/2024 1:45 PM EDT Office [place] [address] Juanpablo Hernandez MD [facility] [place] [address] 05/23/2024 2:45 PM EST Clinical Support Family Medicine at [facility] [address] [place] [phone] Julia Low [facility] 01/30/2025 1:30 PM EDT Laboratory Appointment Lab at [facility] Hematology Oncology [address] [place] [address] 01/30/2025 3:[address] [place] [address] Arturo Cordero MD [facility] DR HEMATOLOGY [place] [address] 01/30/2025 4:15 PM EDT Office Visit Hematology [place] [address] Arturo Cordero MD [facility] DR HEMATOLOGY [place] [address] documented as of this encounter Visit Diagnoses Diagnosis COPD Simple chronic bronchitis documented in this encounter Care Teams Desktop Manager Relationship Specialty Start Date End Date Rodney Padilla MD [address] [place] [address] PCP - General 07/18/22 04/09/24 documented as of this encounter
--- OUTSIDE RECORDS SUMMARY | 2024-04-13 15:43 | XMS_ITS | Encounter Summary ---
Author Organization [facility] [place] [address] Care Team Providers Care Med Spa Manager Name Role Phone Rodney Padilla MD Primary Care Provider +1- [phone] Encounter Details Date Type Department Care Team [...] 05/01/2024 11:20 AM EDT Appointment Mammography/[place] [address] Rodney Padilla MD [address] [place] [address] 05/01/2024 1:45 PM EDT [place] [address] Juanpablo Hernandez MD [facility] [place] [address] 05/23/2024 2:45 PM EST Clinical Support Family Medicine at [facility] [address] [place] [address] Julia Low [facility] 01/30/2025 1:30 PM EDT Laboratory Appointment Lab at [facility] Hematology Oncology [address] [place] [address] 01/30/2025 3:[address] [place] [place] [address] Arturo Cordero MD [facility] DR [place] [address] 01/30/2025 4:15 PM EDT Office Visit [place]ology [place] [address] Arturo Cordero MD [facility] DR [place] [address] documented as of this encounter Visit Diagnoses Not on filedocumented in this encounter Care Teams Med Spa Manager Relationship Specialty Start Date End Date Rodney Padilla MD [address] [place] [place] [address] PCP - General 07/18/22 04/09/24 documented as of this encounter
--- OUTSIDE RECORDS SUMMARY | 2024-04-13 15:43 | XMS_ITS | Encounter Summary ---
Author Organization [facility] [place] [address] Care Team Providers Care Literacy Education Professor Name Role Phone Daryn Garrett MD Primary Care Provider Reason for Visit * Reason Onset Date Comments Medication Refill 11/07/2022 Encounter Details Date Type Department Care Team (Late st Contact Info) Description 11/07/2022 Refill Family Medicine at [facility] [address] [place] [phone] Rodney Padilla MD [address] [facility] [place] [address] Type 2 diabetes mellitus without long-term current [...] 05/01/2024 11:20 AM EDT Appointment Mammography/[place] [address] Rodney Padilla MD [address] [place] [address] 05/01/2024 1:45 PM EDT Office [place] [address] Juanpablo Hernandez MD [facility] [place] [address] 05/23/2024 2:45 PM EST Clinical Support Family Medicine at [facility] [address] [place] [phone] Julia Low [facility] 01/30/2025 1:30 PM EDT Laboratory Appointment Lab at [facility] Hematology Oncology [address] [place] [address] 01/30/2025 3:[address] [place] [address] Arturo Cordero MD [facility] [place]EMATOLOGY [place] [address] 01/30/2025 4:15 PM EDT Office Visit Hematology [place] [address] Arturo Cordero MD [facility] [place]Y [place] [address] documented as of this encounter Visit Diagnoses Diagnosis Type 2 diabetes mellitus without long-term current use of insulin documented in this encounter Care Teams Literacy Education Professor Relationship Specialty Start Date End Date Daryn Garrett MD [facility] [address] [facility] [place] [address] PCP - General 04/10/24 documented as of this encounter
--- OUTSIDE RECORDS SUMMARY | 2024-04-13 15:43 | XMS_ITS | Encounter Summary ---
Author Organization [facility] [place] [address] Care Team Providers Care Tile Shader Name Role Phone Rodney Padilla MD Primary Care Provider Encounter Details Date Type Department Care Team (Latest Contact Info) Description 12/29/2022 9:45 AM EDT - 12/29/2022 11:59 PM EDT Hospital Encounter [place]ematology [place] [address] Malignant melanoma of conjunctiva, left Discharge Disposition: [...] 09/26/2022 09/19/2023 fluticasone propionate (Flonase) 50 mcg/actuation [place], Suspension 1 spray by Each Nare route [...] 1 each 12/10/2021 02/04/2023 FreeStyle Sanjana 2 [place] MiscIndications:diabe escobar mellitus 1 each by Other [...] AM EDT Appointment Mammography/[place] [address] Rodney Padilla MD [address] [place] [address] 05/01/2024 1:45 PM EDT Office [place] [phone] Juanpablo Hernandez MD [facility] [place] [address] 05/23/2024 2:45 PM EST Clinical Support Family Medicine at [facility] [address] [place] [address] Julia Low [facility] 01/30/2025 1:30 PM EDT Laboratory Appointment Lab at [facility] Hematology Oncology [address] [place] [address] 01/30/2025 3:[address] [place] [address] Arturo Cordero MD [facility] DR HEMATOLOG[place] [address] 01/30/2025 4:15 PM EDT Office Visit Hematology [place] [address] Arturo Cordero MD [facility] [place] [address] documented as of this encounter Procedures Procedure [...] AM EDT) Neutrophil % 66.5 % [facility] Neutrophil Absolute 4.82 1.70 - 6.10 x10(3)/[facility] LAB[facility] Lymph % 24.4 % [facility] Lymphocytes Abs 1.8 0.9 - 3.2 x10(3)/[facility] LAB[facility] Monocyte % 6.4 % [facility] Monocyte Abs 0.5 0.3 - 0.9 x10(3)/[facility] Eos % 1.7 % [facility] Eosinophils Abs 0.1 0.0 - 0.4 x10(3)/[facility] Basophil % 0.7 % [facility] Baso Absolute 0.0 0.0 - 0.1 x10(3)/[facility] LAB[facility] Immature Gran % 0.30 % [facility] Comment: Immature granulocytes(IG's)percentage and absolute count will include metamyelocytes, myelocytes, and promyelocytes. Blood smears from CBCs yielding IG's will be scanned manually for concordance. If this scan disagrees with the automated IG or if promyelocytes are noted, a manual differential will be performed. Immature Gran Absolute 0.02 0.00 - 0.04 x10(3)/[facility] Blood 12/29/2022 10:0 0 AM EDT 12/29/2022 10:13 AM EDT Narrative Resulting Agency Comment Spec In Lab Mer Samy Trejo MD HEMATOLOGY ORDER SHYLA [facility] [place] [address] * (ABNORMAL) Hemogram (12/29/2022 10:00 AM EDT) White Blood Cell 7.2 4.0 - 9.5 x10(3)/mc L [facility] Red Blood Cell 4.67 4.00 - 5.21 x10(6)/mc L [facility] Hemoglobin 13.1 11.7 - 15.5 g/dL [facility] Hematocrit 39.8 35.7 - 45.8 % [facility] Mean Cell Volume 85.2 82.6 - 94.4 fL [facility] Mean Cell Hemoglobin 28.1 27.1 - 32.0 pg [facility] Mean Cell Hemoglobin Concentration 32.9 31.7 - 35.0 g/dL [facility] Platelet 362(H) 145 - 357 x10(3)/mc L [facility] RDW Standard Deviation 45.0 37.0 - 46.0 fL [facility] RDW coefficient of variation 14.6(H) 11.5 - 14.1 % [facility] Mean Platelet Volume 9.3 7.6 - 12.9 fL [facility] NRBC% auto 0.0 % [facility] NRBC Absolute 0.000 0.000 - 0.000 x10(3)/mc L [facility] Blood 12/29/2022 10:0 0 AM EDT 12/29/2022 10:13 AM EDT Narrative Resulting Agency Comment Spec In Lab Mer L Faheem Trejo MD HEMATOLOGY ORDER SHYLA [facility] [place] [address] * (ABNORMAL) Comprehensive metabolic panel (non-fasting) (12/29/2022 10:00 AM EDT) Glucose 259(H) 65 - 199 mg/dL [facility] Comment:Diabetes: >=200 mg/d L plus symptoms Blood Urea Nitrogen 17 8 - 18 mg/dL [facility] Creatinine 0.84 0.70 - 1.20 mg/dL [facility] Sodium 140 135 - 145 mmol/L [facility] Potassium 4.5 3.5 - 5.0 mmol/L [facility] Comment: Please note: ??Patients with WBC >100,000 may have falsely elevated Potassium levels. ??For accurate Potassium quantification in these patients send serum separator tube (gold top) for subsequent determinations. ??Contact the Clinical Chemistry Laboratory if there are any questions. Chloride 104 98 - 107 mmol/L [facility] Carbon Dioxide 23 22 - 31 mmol/L [facility] Anion Gap 13 5 - 15 mmol/L [facility] Calcium 9.5 8.5 - 10.5 mg/dL [facility] Protein, Total 6.9 6.1 - 8.0 g/dL [facility] Albumin 4.1 3.2 - 5.2 g/dL [facility] Aspartate Aminotransferase 19 0 - 30 unit/L [facility] Alanine Aminotransferase 24 0 - 30 unit/L [facility] Alkaline Phosphatase 103 35 - 105 unit/L [facility] Bilirubin, Total 0.3 0.2 - 1.3 mg/dL [facility] Est Glomerular Filtration Rate 78 >=60 mL/min/1. 73 m?? [facility] Comment: This patient's estimated GFR was calculated using the 2021 CKD-EPI equation. The estimated GFR can vary [...] Cordero MD CHEMISTRY ORDERABLES Performing Organization Address City/[facility] Co de Phone Number [facility] [place] [address] * Lactate Dehydrogenase (12/29/2022 10:00 AM EDT) Lactate Dehydrogenase 175 110 - 220 unit/L [facility] Blood 12/29/2022 10:0 0 AM EDT 12/29/2022 10:13 AM EDT Narrative Resulting Agency Comment Spec In Lab Arturo Cordero MD CHEMISTRY ORDERABLES Performing Organization Address City/[facility] [place] [address] documented in this encounter Visit Diagnoses Diagnosis Malignant melanoma of conjunctiva, left documented in this encounter Care Teams Tile Shader Relationship Specialty Start Date End Date Rodney Padilla MD [address] [place] [address] PCP - General 07/18/22 04/09/24 documented as of this encounter
--- OUTSIDE RECORDS SUMMARY | 2024-04-13 15:43 | XMS_ITS | Encounter Summary ---
Author Organization [facility] Address [facility] [place] [address] Care Team Providers Care Telegraph Messenger Name Role Phone Rodney Padilla MD Primary Care Provider [phone] Reason for Visit * Reason Comments Diabetes Encounter Details Date Type Department Care Team (Late st Contact Info) Description 01/05/2023 9:00 AM EDT TH Visit (TeleHealth) Family Medicine at [facility] [address] [place] [address] Julia Low, [facility] Type 2 [...] any of the following conditions: Yes [x] [place]/Stroke/CAD [] Retinopathy [] CHF [x] Neuropathy [] [...] 164 191 159 Daily Avg 176 eA1c [id number] Prior Averages: 08/26/21 09/09/21 09/24/21 11/14/21 11/03/22 12/01/22 Daily Avg 157 168 131 138 175 153 eA1c 8.28120 8.46 7.20 7.44 8.7 7.95 Acute complications [...] tablet 5 fluticasone propionate (Flonase) 50 mcg/actuation [place], Suspension 1 spray by Each Nare route [...] 1 Nebulizer Accessories Misc 1 each by [facility]Non-Drug; Combo Route) route every 4 hours as [...] spacer 1 each 11 FreeStyle Sanjana 2 [place] Misc 1 each by Other route daily. [...] units every 3 days if FBG >150 Aliez was seen today for diabetes. Diagnoses and [...] 05/01/2024 11:20 AM EDT Appointment Mammography/[place] [address] Rodney Padilla MD [address] [place] [address] 05/01/2024 1:45 PM EDT Office [place] [address] Juanpablo Hernandez MD [facility] [place] [address] 05/23/2024 2:45 PM EST Clinical Support Family Medicine at [facility] [address] [place] [address] Julia Low RPH 01/30/2025 1:30 PM EDT Laboratory Appointment Lab at [facility] Hematology Oncology [address] [place] [address] 01/30/2025 3:[address] [place] [address] Arturo Cordero MD [facility] DR HEMATOLOGY [place] [address] 01/30/2025 4:15 PM EDT Office Visit Hematology [place] [address] Arturo Cordero MD [facility] DR HEMATOLOGY [place] [address] documented as of this encounter Visit Diagnoses Diagnosis Type 2 diabetes mellitus without long-term current use of insulin documented in this encounter Care Teams Telegraph Messenger Relationship Specialty Start Date End Date Rodney Padilla MD [address] [place] [address] PCP - General 07/18/22 04/09/24 documented as of this encounter
--- OUTSIDE RECORDS SUMMARY | 2024-04-13 15:43 | XMS_ITS | Encounter Summary ---
Author Organization [facility] [address] Care Team Providers Care Breaker Engineer Name Role Phone Rodney Padilla MD Primary Care Provider [phone] Encounter Details Date Type Department Care Team (Late st Contact Info) Description 01/09/2023 Orders Only Hematology [place] [address] Arturo Cordero MD [facility] DR HEMATOLOGY [place] [address] Malignant melanoma of conjunctiva, left; Lung nodule [...] 05/01/2024 11:20 AM EDT Appointment Mammography/[place] [address] Rodney Padilla MD [address] [place] [place] [address] 05/01/2024 1:45 PM EDT Office [place] [address] Juanpablo Hernandez MD [facility] [place] [address] 05/23/2024 2:45 PM EST Clinical Support Family Medicine at [facility] [address] [place] [address] Julia Low RPH 01/30/2025 1:30 PM EDT Laboratory Appointment Lab at [facility] Hematology Oncology [address] [place] [address] 01/30/2025 3:[address] [place] [address] Arturo Cordero MD [facility] DR HEMATOLOGY [place] [address] 01/30/2025 4:15 PM EDT Office Visit Hematology [place] [address] Arturo Cordero MD [facility] DR HEMATOLOGY [place] [address] documented as of this encounter Results * Lactate Dehydrogenase (08/03/2023 7:53 AM EST) [facility] Lactate Dehydrogenase 218 110 - 220 unit/L [facility] Blood 08/03/2023 7:53 AM EST 08/03/2023 9:46 AM EST Narrative Resulting Agency Comment Spec In Lab Arturo Cordero MD CHEMISTRY ORDERABLES [facility] [place] [address] * (ABNORMAL) Comprehensive metabolic panel (non-fasting) (08/03/2023 7:53 AM EST) [facility] Glucose 254(H) 65 - 199 mg/dL [facility] Comment:Diabetes: >=200 mg/d L plus symptoms Blood Urea Nitrogen 17 8 - 18 mg/dL [facility] Creatinine 0.82 0.70 - 1.20 mg/dL [facility] Sodium 140 135 - 145 mmol/L [facility] Potassium 4.9 3.5 - 5.0 mmol/L [facility] Comment: Please note: ??Patients with WBC >100,000 may have falsely elevated Potassium levels. ??For accurate Potassium quantification in these patients send serum separator tube (gold top) for subsequent determinations. ??Contact the Clinical Chemistry Laboratory if there are any questions. Chloride 103 98 - 107 mmol/L [facility] Carbon Dioxide 27 22 - 31 mmol/L [facility] Anion Gap 10 5 - 15 mmol/L [facility] Calcium 9.5 8.5 - 10.5 mg/dL [facility] Protein, Total 6.9 6.1 - 8.0 g/dL [facility] Albumin 4.3 3.2 - 5.2 g/dL [facility] Aspartate Aminotransferase 19 0 - 30 unit/L [facility] Alanine Aminotransferase 26 0 - 30 unit/L [facility] Alkaline Phosphatase 101 35 - 105 unit/L [facility] Bilirubin, Total 0.3 0.2 - 1.3 mg/dL [facility] Est Glomerular Filtration Rate 80 >=60 mL/min/1. 73 m?? [facility] Comment: This patient's estimated [...] Resulting Agency Comment Spec In Lab Arturo Cordreo MD CHEMISTRY ORDERABLES [facility] [place] [address] documented in this encounter Visit Diagnoses Diagnosis Malignant melanoma of conjunctiva, left Lung nodule Solitary pulmonary nodule documented in this encounter Care Teams Breaker Engineer Relationship Specialty Start Date End Date Rodney Padilla MD [address] [place] [address] PCP - General 07/18/22 04/09/24 documented as of this encounter
--- OUTSIDE RECORDS SUMMARY | 2024-04-13 15:43 | XMS_ITS | Encounter Summary ---
Author Organization [facility] Address [facility] [place] [address] Care Team Providers Care Locksmith Apprentice Name Role Phone Rodney Padilla MD Primary Care Provider [phone] Reason for Visit * Reason Comments Diabetes Hyperlipidemia Encounter Details Date Type Department Care Team (Late st Contact Info) Description 01/23/2023 9:30 AM EDT TH Visit (TeleHealth) Family Medicine at [facility] [address] [place] [address] Julia Low, [facility] Type 2 diabetes mellitus without long-term current [...] any of the following conditions: Yes [x] [place]/Stroke/CAD [] Retinopathy [] CHF [x] Neuropathy [] [...] 195 170 168 Daily Avg 168 eA1c 8.90391 Prior Averages: 08/26/21 09/09/21 09/24/21 11/14/21 11/03/22 12/01/2201/03/23 Daily Avg 157 168 131 138 175 153 176 eA1c 8.12939 8.46 7.20 7.44 8.7 7.95 8.75 Acute [...] tablet 5 fluticasone propionate (Flonase) 50 mcg/actuation [place], Suspension 1 spray by Each Nare route [...] spacer 1 each 11 FreeStyle Sanjana 2 [place] Misc 1 each by Other route daily. [...] AM EDT Appointment Mammography/[place] [address] Rodney Padilla MD [address] [place] [place] [address] 05/01/2024 1:45 PM EDT Office [place] [address] Juanpablo Hernandez MD [facility] [place] [address] 05/23/2024 2:45 PM EST Clinical Support Family Medicine at [facility] [address] [place] [address] Julia Low [facility] 01/30/2025 1:30 PM EDT Laboratory Appointment Lab at [facility] Hematology Oncology [address] [place] [address] 01/30/2025 3:[address] [place] [address] Arturo Cordero MD [facility] DR HEMATOLOGY [place] [address] 01/30/2025 4:15 PM EDT Office Visit Hematology [place] [address] Arturo Cordero MD [facility] DR HEMATOLOGY [place] [address] documented as of this encounter Visit Diagnoses Diagnosis Type 2 diabetes mellitus without long-term current use of insulin- Primary documented in this encounter Care Teams Locksmith Apprentice Relationship Specialty Start Date End Date Rodney Padilla MD [address] [place] [place] [address] PCP - General 07/18/22 04/09/24 documented as of this encounter
--- OUTSIDE RECORDS SUMMARY | 2024-04-13 15:43 | XMS_ITS | Encounter Summary ---
Author Organization [facility] Address [place] [address] Care Team Providers Care Deli Slicer Name Role Phone Rodney Padilla MD Primary Care Provider [phone] Reason for Visit * Reason Onset Date Comments Diabetes 11/09/2022 Encounter Details Date Type Department Care Team (Late st Contact Info) Description 11/09/2022 1:30 PM EDT Telephone Family Medicine at [facility] [address] [place] [address] Julia Low, [facility] Diabetes Social History Tobacco Use Types Packs/Day [...] 181 126 163 Daily Avg 173 eA1c 8.401869 Average BG Readings before insulin: 175 Assessment [...] AM EDT Appointment Mammography/[place] [address] Rodney Padilla MD [address] [place] [address] 05/01/2024 1:45 PM EDT Office [place] [address] Juanpablo Hernandez MD [facility] [place] [place] [address] 05/23/2024 2:45 PM EST Clinical Support Family Medicine at [facility] [address] [place] [address] Julia Low [facility] 01/30/2025 1:30 PM EDT Laboratory Appointment Lab at [facility] Hematology Oncology [address] [place] [address] 01/30/2025 3:[address] [place] [address] Arturo Cordero MD [facility] DR [place] [address] 01/30/2025 4:15 PM EDT Office Visit Hematology [place] [address] Arturo Cordero MD [facility] [address] [place] [address] documented as of this encounter Visit Diagnoses Diagnosis Type 2 diabetes mellitus without long-term current use of insulin documented in this encounter Care Teams Deli Slicer Relationship Specialty Start Date End Date Rodney Padilla MD [address] [place] [address] PCP - General 07/18/22 04/09/24 documented as of this encounter
--- OUTSIDE RECORDS SUMMARY | 2024-04-13 15:43 | XMS_ITS | Encounter Summary ---
Author Organization [facility] [place] [address] Care Team Providers Care Chucking And Boring Machine Operator Name Role Phone Rodney Padilla MD Primary Care Provider Encounter Details Date Type Department Care Team (Latest Contact Info) Description 11/30/2022 2:20 PM EDT - 11/30/2022 11:59 PM EDT Hospital Encounter Mammography/[place] [address] Rodney Padilla MD [address] [place] [address] Screening mammogram for breast cancer Discharge Disposition: [...] 09/26/2022 09/19/2023 fluticasone propionate (Flonase) 50 mcg/actuation [place], Suspension 1 spray by Each Nare route [...] 1 each 12/10/2021 02/04/2023 FreeStyle Sanjana 2 [place] MiscIndications:diabe escobar mellitus 1 each by Other [...] 05/01/2024 11:20 AM EDT Appointment Mammography/[place] [address] Rodney Padilla MD [address] [place] [address] 05/01/2024 1:45 PM EDT Office [place] [address] Juanpablo Hernandez MD [facility] [place] [address] 05/23/2024 2:45 PM EST Clinical Support Family Medicine at [facility] [address] [place] [address] Julia Low [facility] 01/30/2025 1:30 PM EDT Laboratory Appointment Lab at [facility] Hematology Oncology [address] [place] [address] 01/30/2025 3:[address] [place] [address] Arturo Cordero MD [facility] HEMATOLOGY [place] [address] 01/30/2025 4:15 PM EDT Office Visit Hematology [place] [address] Arturo Cordero MD [facility] HEMATOLOGY [place] [address] documented as of this encounter Procedures Procedure [...] cancer documented in this encounter Care Teams Chucking And Boring Machine Operator Relationship Specialty Start Date End Date Rodney Padilla MD [address] [place] [address] PCP - General 07/18/22 04/09/24 documented as of this encounter
--- OUTSIDE RECORDS SUMMARY | 2024-04-13 15:43 | XMS_ITS | Encounter Summary ---
Author Organization [facility] Address [facility] [place] [address] Care Team Providers Care Shoe Stitcher Odd Name Role Phone Rodney Padilla MD Primary Care Provider [phone] Reason for Visit * Reason Comments Medication Refill Encounter Details Date Type Department Care Team (Late st Contact Info) Description 02/19/2023 Refill Family Medicine at [facility] [address] [place] [address] Luis E Narayan MD [facility] DR [address] [place] [address] Social History Tobacco Use Types Packs/Day Years [...] 05/01/2024 11:20 AM EDT Appointment Mammography/[place] [address] Rodney Padilla MD [address] [place] [address] 05/01/2024 1:45 PM EDT Office [place] [address] Juanpablo Hernandez MD [facility] [place] [place] [address] 05/23/2024 2:45 PM EST Clinical Support Family Medicine at [facility] [address] [place] [address] Julia Low [facility] 01/30/2025 1:30 PM EDT Laboratory Appointment Lab at [facility] Hematology Oncology [address] [place] [address] 01/30/2025 3:[address] [place] [address] Arturo Cordero MD [facility] [place] [address] 01/30/2025 4:15 PM EDT Office Visit Hematology [place] [address] Arturo Cordero MD [facility] [place] [address] documented as of this encounter Visit Diagnoses Not on filedocumented in this encounter Care Teams Shoe Stitcher Odd Relationship Specialty Start Date End Date Rodney Padilla MD [address] [place] [address] PCP - General 07/18/22 04/09/24 documented as of this encounter
--- OUTSIDE RECORDS SUMMARY | 2024-04-13 15:43 | XMS_ITS | Encounter Summary ---
Author Organization [facility] Address [facility] [place] [address] Care Team Providers Care English Composition Teacher Name Role Phone Rodney Padilla MD Primary Care Provider +1- [phone] Encounter Details Date Type Department Care Team [...] 05/01/2024 11:20 AM EDT Appointment Mammography/[place] [address] Rodney Padilla MD [address] [place] [address] 05/01/2024 1:45 PM EDT Office [place] [address] Juanpablo Hernandez MD [facility] [place] [address] 05/23/2024 2:45 PM EST Clinical Support Family Medicine at [facility] [address] [place] [address] Julia Low [facility] 01/30/2025 1:30 PM EDT Laboratory Appointment Lab [place] [facility] [place] On[place] [address] [place] [address] 01/30/2025 3:[address] [place] [address] Arturo Cordero MD [facility] [address] [place] [address] 01/30/2025 4:15 PM EDT Office Visit Hematology [place] [address] Arturo Cordero MD [facility] [address] [place] [address] documented as of this encounter Visit Diagnoses Not on filedocumented in this encounter Care Teams English Composition Teacher Relationship Specialty Start Date End Date Rodney Padilla MD [address] [place] [place] [address] PCP - General 07/18/22 04/09/24 documented as of this encounter
--- OUTSIDE RECORDS SUMMARY | 2024-04-13 15:43 | XMS_ITS | Encounter Summary ---
Author Organization [facility] [address] Care Team Providers Care Dairy Inspector Name Role Phone Rodney Padilla MD Primary Care Provider Reason for Referral * Diagnostic Test (Routine) - Closed Specialty Diagnoses / Procedures Referred By Contac t Referred To Contact Radiology Diagnoses Malignant melanoma of conjunctiva, left Procedures CT Neck Soft Tissue w Contrast (Generic) Arturo Cordero MD [facility] [place] [address] [facility] [place] [address] Referral ID Status Reason Start Date Expiration Date V isits Requested Visits Authorized [id number] Closed Specialty Service Requested 12/29/2022 06/30/2024 1 1 * Diagnostic Test (Routine) - Closed Specialty Diagnoses / Procedures Referred By Contac t Referred To Contact Radiology Diagnoses Malignant melanoma of conjunctiva, left Renal cell cancer, left Procedures CT Chest Abdomen Pelvis w Contrast (Generic) Arturo Cordero MD [facility] [place] [address] [facility] [place] [address] Referral ID Status Reason Start Date Expiration Date V isits Requested Visits Authorized [id number] Closed Specialty Service Requested 12/29/2022 06/30/2024 1 1 Reason for Visit * Diagnostic Test (Routine) - Closed Specialty Diagnoses / Procedures Referred By Contac t Referred To Contact Radiology Diagnoses Malignant melanoma of conjunctiva, left Renal cell cancer, left Procedures CT Chest Abdomen Pelvis w Contrast (Generic) Arturo Cordero MD [facility] [place] [address] [facility] [place] [address] Referral ID Status Reason Start Date Expiration Date V isits Requested Visits Authorized [id number] Closed Specialty Service Requested 12/29/2022 06/30/2024 1 1 Encounter Details Date Type Department Care Team (Latest Contact Info) Description 01/06/2023 12:18 PM EDT - 01/06/2023 11:59 PM EDT Hospital [place] [address] [facility] [place] [address] Malignant melanoma of conjunctiva, left; [...] 09/26/2022 09/19/2023 fluticasone propionate (Flonase) 50 mcg/actuation [place], Suspension 1 spray by Each Nare route [...] 1 each 12/10/2021 02/04/2023 FreeStyle Sanjana 2 [place] MiscIndications:diabe escobar mellitus 1 each by Other [...] 05/01/2024 11:20 AM EDT Appointment Mammography/[place] [address] Rodney Padilla MD [address] [place] [address] 05/01/2024 1:45 PM EDT Office [place] [address] [facility] [place] [address] 05/23/2024 2:45 PM EST Clinical Support Family Medicine at [facility] [address] [place] [address] Julia Low [facility] 01/30/2025 1:30 PM EDT Laboratory Appointment Lab at [facility] Hematology Oncology [address] [place] [address] 01/30/2025 3:[address] [place] [address] [facility] [place] [address] 01/30/2025 4:15 PM EDT Office Visit Hematology [place] [address] [facility] [place] [address] documented as of this encounter Procedures Procedure [...] who have questions please contact the health pharmacy customer care specialist that requested your imaging first. ? [...] after the intravenous administration of 110 mL [id number]. COMPARISON: CT neck 06/23/2022 FINDINGS: No large [...] patients who have questions please contactthe health pharmacy customer care specialist that requested your imaging first. Arturo Cordero MD [facility] CT ORDERABLES * CT Chest Abdomen Pelvis [...] who have questions please contact the health pharmacy customer care specialist that requested your imaging first. ? [...] patients who have questions please contactthe health pharmacy customer care specialist that requested your imaging first. Arturo Cordero [...] mLs documented in this encounter Care Teams Dairy Inspector Relationship Specialty Start Date End Date Rodney Padilla MD [address] [place] [address] PCP - General 07/18/22 04/09/24 documented as of this encounter
--- OUTSIDE RECORDS SUMMARY | 2024-04-13 15:43 | XMS_ITS | Encounter Summary ---
Author Organization [facility] Address [facility]atherine [place] [address] Care Team Providers Care Chef Head Name Role Phone Rodney Padilla MD Primary Care Provider [phone]- [phone] Encounter Details Date Type Department Care Team [...] 05/01/2024 11:20 AM EDT Appointment Mammography/[place] [address] Rodney Padilla MD [address] [place] [address] 05/01/2024 1:45 PM EDT Office [place] [address] Juanpablo Hernandez MD [facility] [place] [address] 05/23/2024 2:45 PM EST Clinical Support Family Medicine at [facility] [address] [place] [address] Julia Low [facility] 01/30/2025 1:30 PM EDT Laboratory Appointment Lab at [facility] Hematology Oncology [address] [place] [address] 01/30/2025 3:[address] [place] [address] Arturo Cordero MD [facility] [address] [place] [address] 01/30/2025 4:15 PM EDT Office Visit Hematology [place] [address] Arturo Cordero MD [facility] [address] [place] [address] documented as of this encounter Visit Diagnoses Not on filedocumented in this encounter Care Teams Chef Head Relationship Specialty Start Date End Date Rodney Padilla MD [address] [place] [place] [address] PCP - General 07/18/22 04/09/24 documented as of this encounter
--- OUTSIDE RECORDS SUMMARY | 2024-04-13 15:43 | XMS_ITS | Encounter Summary ---
Author Organization [facility] Address [facility] [place] [place] [address] Care Team Providers Care Decating Machine Operator Name Role Phone Rodney Padilla MD Primary Care Provider +1- [phone] Encounter Details Date Type Department Care Team [...] 05/01/2024 11:20 AM EDT Appointment Mammography/[place] [address] Rodney Padilla MD [address] [place] [address] 05/01/2024 1:45 PM EDT Office [place] [address] Juanpablo Hernandez MD [facility] [address] 05/23/2024 2:45 PM EST Clinical Support Family Medicine at [facility] [address] [place] [address] Julia Low [facility] 01/30/2025 1:30 PM EDT Laboratory Appointment Lab at [facility] [place]ology Oncology [address] [place] [address] 01/30/2025 3:[address] [place] [address] Arturo Cordero MD [facility] DR HEMATOLOGY [place] [address] 01/30/2025 4:15 PM EDT Office Visit Hematology [place] [address] Arturo Cordero MD [facility] DR HEMATOLOGY [place] [address] documented as of this encounter Visit Diagnoses Not on filedocumented in this encounter Care Teams Decating Machine Operator Relationship Specialty Start Date End Date Rodney Padilla MD [address] [place] [address] PCP - General 07/18/22 04/09/24 documented as of this encounter
--- OUTSIDE RECORDS SUMMARY | 2024-04-13 15:43 | XMS_ITS | Encounter Summary ---
Author Organization [facility] Address [facility] [place] [address] Care Team Providers Care Corporation Officer Name Role Phone Rodney Padilla MD Primary Care Provider [phone]- [phone] Encounter Details Date Type Department Care Team [...] 05/01/2024 11:20 AM EDT Appointment Mammography/[place] [address] Rodney Padilla MD [address] [place] [place] [address] 05/01/2024 1:45 PM EDT Office [place] [address] Juanpablo Hernandez MD [facility] [place] [address] 05/23/2024 2:45 PM EST Clinical Support Family Medicine at [facility] [address] [place] [address] Julia Low [facility] 01/30/2025 1:30 PM EDT Laboratory Appointment Lab at [facility] Hematology Oncology [address] [place] [address] 01/30/2025 3:[address] [place] [address] Arturo Cordero MD [facility] [place] [address] 01/30/2025 4:15 PM EDT Office Visit Hematology [place] [address] Arturo Cordero MD [facility] [address] [place] [address] documented as of this encounter Visit Diagnoses Not on filedocumented in this encounter Care Teams Corporation Officer Relationship Specialty Start Date End Date Rodney Padilla MD [address] [place] [place] [address] PCP - General 07/18/22 04/09/24 documented as of this encounter
--- OUTSIDE RECORDS SUMMARY | 2024-04-13 15:44 | XMS_ITS | Encounter Summary ---
[place] [address] Care Team Providers Care E Commerce Architect Name Role Phone Rodney Padilla MD Primary Care Provider [phone]- [phone] Reason for Visit * Diagnostic Test (Routine) - Closed Specialty Diagnoses / Procedures Referred By Gonzalez kumari Referred To Contact Radiology Diagnoses Dyspepsia Nausea without vomiting Procedures NM Gastric Emptying Scan Alejandra Pop, PROFESSOR OF FOREST PLANNING [address] [place] [address] [place] [address] Referral ID Status Reason Start Date Expiration Date V isits Requested Visits Authorized [id number] Closed Specialty Service Requested 06/17/2022 12/17/2023 1 1 Encounter Details Date Type Department Care Team (Latest Contact Info) Description 10/18/2022 10:21 AM EDT Hospital Encounter [place] [address] Alejandra Pop APRN [address] [place] [address] Discharge Disposition: Home Social History [...] 09/26/2022 09/19/2023 fluticasone propionate (Flonase) 50 mcg/actuation [place], Suspension 1 spray by Each Nare route [...] 1 each 12/10/2021 02/04/2023 FreeStyle Sanjana 2 [place] MiscIndications:diabe escobar mellitus 1 each by Other [...] 11:20 AM EDT Appointment Mammography/[place] [address] Rodney Padilla MD [address] [place] [address] 05/01/2024 1:45 PM EDT Office Visit [place] [address] Juanpablo Hernandez MD [facility] [place] [address] 05/23/2024 2:45 PM EST Clinical Support Family Medicine at [facility] [address] [place] [address] Julia Low, [facility] 01/30/2025 1:30 PM EDT Laboratory Appointment Lab at [facility] Hematology Oncology [address] [place] [address] 01/30/2025 3:[address] [place] [address] Arturo Cordero MD [facility] DR HEMATOLOGY [place] [address] 01/30/2025 4:15 PM EDT Office Visit Hematology [place] [address] Arturo Cordero MD [facility] DR HEMATOLOGY [place] [address] documented as of this encounter Procedures Procedure [...] who have questions please contact the health day care center director that requested your imaging first. ? Electronically signed by: Brett Chapman MD, [facility] ([phone]), at 10/18/2022 3:12 PM Narrative 10/18/2022 3:12 [...] patients who have questions please contactthe health day care center director that requested your imaging first. Alejandra Christinabenito PROFESSOR OF FOREST PLANNING IMG NM ORDERABLE S documented in this encounter Visit Diagnoses Not on filedocumented in this encounter Care Teams E Commerce Architect Relationship Specialty Start Date End Date Rodney Padilla MD [address] [place] [address] PCP - General 07/18/22 04/09/24 documented as of this encounter
--- OUTSIDE RECORDS SUMMARY | 2024-04-13 15:44 | XMS_ITS | Encounter Summary ---
Author Organization [facility] [place] [address] Care Team Providers Care Transitional Kindergarten Teacher Name Role Phone Rodney Padilla MD Primary Care Provider [phone]- [phone] Encounter Details Date Type Department Care Team (Late st Contact Info) Description 07/18/2022 Telephone Family Medicine at [facility] [address] [place] [address] Rodney Padilla MD [address] [place] [address] Social History Tobacco Use Types Packs/Day Years [...] get this [facility] [...] 05/01/2024 11:20 AM EDT Appointment Mammography/[place] [address] Rodney Padilla MD [address] [place] [address] 05/01/2024 1:45 PM EDT [place] [address] Juanpablo Hernandez MD [facility] [place] [address] 05/23/2024 2:45 PM EST Clinical Support Family Medicine at [facility] [address] [place] [address] Julia Low [facility] 01/30/2025 1:30 PM EDT Laboratory Appointment Lab at [facility] Hematology Oncology [address] [place] [address] 01/30/2025 3:[address] [place] [address] Arturo Cordero MD [facility] DR [place] [address] 01/30/2025 4:15 PM EDT Office Visit [place] [address] Arturo Cordero MD [facility] [address] [place] [address] documented as of this encounter Visit Diagnoses Not on filedocumented in this encounter Care Teams Transitional Kindergarten Teacher Relationship Specialty Start Date End Date Rodney Padilla MD [address] [place] [address] PCP - General 07/18/22 04/09/24 documented as of this encounter
--- OUTSIDE RECORDS SUMMARY | 2024-04-13 15:44 | XMS_ITS | Encounter Summary ---
Author Organization [facility]ly [facility] Address [facility] [place] [address] Care Team Providers Care Professor Of Management Name Role Phone Luis E Narayan MD Primary Care Provider +1- [phone] Encounter Details Date Type Department Care Team [...] 05/01/2024 11:20 AM EDT Appointment Mammography/[place] [address] Rodney Padilla MD [address] [place] [place] [address] 05/01/2024 1:45 PM EDT Office [place] [address] Juanpablo Hernandez MD [facility] [place] [address] 05/23/2024 2:45 PM EST Clinical Support Family Medicine at [facility] [address] [place] [address] Julia Low [facility] 01/30/2025 1:30 PM EDT Laboratory Appointment Lab at [facility] Hematology Oncology [address] [place] [address] 01/30/2025 3:[address] [place] [address] Arturo Cordero MD [facility] [place] [address] 01/30/2025 4:15 PM EDT Office Visit Hematology [place] [address] Arturo Cordero MD [facility] [place] [address] documented as of this encounter Visit Diagnoses Not on filedocumented in this encounter Care Teams Professor Of Management Relationship Specialty Start Date End Date Luis E Narayan MD [facility] [address] [place] [place] [address] PCP - General Family Medicine 01/20/22 07/17/22 documented as of this encounter
--- OUTSIDE RECORDS SUMMARY | 2024-04-13 15:44 | XMS_ITS | Encounter Summary ---
Author Organization [facility] [place] [address] Care Team Providers Care Parish Visitor Name Role Phone Luis E Narayan MD Primary Care Provider Reason for Referral * Diagnostic Test (Routine) - Closed Specialty Diagnoses / Procedures Referred By Contac t Referred To Contact Radiology Diagnoses Malignant melanoma of conjunctiva, left Procedures CT Chest Abdomen Pelvis w Contrast (Generic) Leandra Lopes APRN [facility] DR HEMATOLOGY [place] [address] [facility] [place] [address] Referral ID Status Reason Start Date Expiration Date V isits Requested Visits Authorized [id number] Closed Specialty Service Requested 12/24/2021 06/25/2023 1 1 * Diagnostic Test (Routine) - Closed Specialty Diagnoses / Procedures Referred By Contac t Referred To Contact Radiology Diagnoses Malignant melanoma of conjunctiva, left Procedures CT Neck Soft Tissue w Contrast (Generic) Leandra Lopes APRN [facility] HEMATOLOGY [place] [address] [facility] [place] [address] Referral ID Status Reason Start Date Expiration Date V isits Requested Visits Authorized [id number] Closed Specialty Service Requested 12/24/2021 06/25/2023 1 1 Reason for Visit * Diagnostic Test (Routine) - Closed Specialty Diagnoses / Procedures Referred By Contchrissy t Referred To Contact Radiology Diagnoses Malignant melanoma of conjunctiva, left Procedures CT Chest Abdomen Pelvis w Contrast (Generic) Leandra Lopes APRN [facility] DR HEMATOLOGY [place] [address] [facility] [place] [address] Referral ID Status Reason Start Date Expiration Date V isits Requested Visits Authorized [id number] Closed Specialty Service Requested 12/24/2021 06/25/2023 1 1 Encounter Details Date Type Department Care Team (Late st Contact Info) Description 06/23/2022 11:14 AM EST - 06/23/2022 11:30 AM EST Hospital [place] [address] Leandra Lopes APRN [facility] DR HEMATOLOGY [place] [address] Malignant melanoma of conjunctiva, left Discharge Disposition: [...] 1 each 12/10/2021 02/04/2023 FreeStyle Sanjana 2 [place] MiscIndications:diabet es mellitus 1 each by Other route daily. Indications: diabetes mellitus 1 each 10/26/2021 01/23/2023 FreeStyle Sanjana 2 Sensor KitIndications:diabete s mellitus 1 each by Other route every 14 days. Indications: diabetes mellitus 2 kit 10/26/2021 01/23/2023 fluticasone propionate (Flonase) 50 mcg/actuation [place], Suspension 1 spray by Each Nare route [...] 05/01/2024 11:20 AM EDT Appointment Mammography/[place] [address] Rodney Padilla MD [address] [place] [address] 05/01/2024 1:45 PM EDT Office [place] [address] Juanpablo Hernandez MD [facility] [place] [address] 05/23/2024 2:45 PM EST Clinical Support Family Medicine at [facility] [address] [place] [address] Julia Low [facility] 01/30/2025 1:30 PM EDT Laboratory Appointment Lab at [facility] Hematology Oncology [address] [place] [address] 01/30/2025 3:[address] [place] [place] [address] Arturo Cordero MD [facility] DR HEMATOLOGY [place] [address] 01/30/2025 4:15 PM EDT Office Visit Hematology and Oncology at [facility] [place] [address] Arturo Cordero MD [facility] DR HEMATOLOGY [place] [address] documented as of this encounter Procedures Procedure [...] have questions please contact the health career specialist that requested your imaging first. ? [...] who have questions please contactthe health career specialist that requested your imaging first. Leandra Lopes [...] have questions please contact the health career specialist that requested your imaging first. ? [...] who have questions please contactthe health career specialist that requested your imaging first. Leandra Lopes DISABILITY AIDE IMG CT ORDERABLES documented in this encounter [...] mLs documented in this encounter Care Teams Parish Visitor Relationship Specialty Start Date End Date Luis E Narayan MD [facility] [place] [address] PCP - General Family Medicine 01/20/22 07/17/22 documented as of this encounter
--- OUTSIDE RECORDS SUMMARY | 2024-04-13 15:44 | XMS_ITS | Encounter Summary ---
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 Indications: diabetes mellitus 1 each 10/26/2021 01/23/2023 FreeStyle Sanjana 2 Sensor KitIndications:diabete s mellitus 1 each by Other route every 14 days. Indications: diabetes mellitus 2 kit 10/26/2021 01/23/2023 fluticasone propionate (Flonase) 50 mcg/actuation [place], Suspension 1 spray by Each Nare route [...] 05/01/2024 11:20 AM EDT Appointment Mammography/[place] [address] Rodney Padilla MD [address] [facility] [place] [address] 05/01/2024 1:45 PM EDT Office [place] [phone] Juanpablo Hernandez MD [facility] [place] [address] 05/23/2024 2:45 PM EST Clinical Support Family Medicine at [facility] [address] [place] [address] Julia Low [facility] 01/30/2025 1:30 PM EDT Laboratory Appointment Lab at [facility] [place] On[place] [address] [place] [address] 01/30/2025 3:[address] [place] [place] [phone] Arturo Cordero MD [facility] [address] [place] [address] 01/30/2025 4:15 PM EDT Office Visit Hematology and Oncology at [facility] [place] [address] Arturo Cordero MD [facility] [address] [place] [address] documented as of this encounter Procedures Procedure [...] 11:47 AM EST) Neutrophil % 68.2 % [facility] Neutrophil Absolute 6.07 1.70 - 6.10 x10(3)/[facility] Lymph % 23.1 % [facility] Lymphocytes Abs 2.1 0.9 - 3.2 x10(3)/[facility] LAB[facility] Monocyte % 6.6 % [facility] Monocyte Abs 0.6 0.3 - 0.9 x10(3)/[facility] Eos % 1.3 % [facility] Eosinophils Abs 0.1 0.0 - 0.4 x10(3)/[facility] Basophil % 0.4 % [facility] Baso Absolute 0.0 0.0 - 0.1 x10(3)/[facility] Immature Gran % 0.40 % [facility] Comment: Immature granulocytes(IG's)percentage and absolute count will include metamyelocytes, myelocytes, and promyelocytes. Blood smears from CBCs yielding IG's will be scanned manually for concordance. If this scan disagrees with the automated IG or if promyelocytes are noted, a manual differential will be performed. Immature Gran Absolute 0.04 0.00 - 0.04 x10(3)/mcL [facility] Blood 06/23/2022 11:4 7 AM EST 06/23/2022 11:51 AM EST Narrative Resulting Agency Comment Spec In Lab Leandra Lopes ASSIGNMENT OFFICER HEMATOLOGY ORDERAB LES Performing Organization Address City/[facility]/ZIP Co de Phone Number [facility] [place] [address] * (ABNORMAL) Hemogram (06/23/2022 11:47 AM EST) White Blood Cell 8.9 4.0 - 9.5 x10(3)/mc L [facility] Red Blood Cell 4.60 4.00 - 5.21 x10(6)/mc L [facility] Hemoglobin 12.9 11.7 - 15.5 g/dL [facility] Hematocrit 39.0 35.7 - 45.8 % [facility] Mean Cell Volume 84.8 82.6 - 94.4 fL [facility] Mean Cell Hemoglobin 28.0 27.1 - 32.0 pg [facility] Mean Cell Hemoglobin Concentration 33.1 31.7 - 35.0 g/dL [facility] Platelet 368(H) 145 - 357 x10(3)/mc L [facility] RDW Standard Deviation 43.6 37.0 - 46.0 fL [facility] RDW coefficient of variation 14.0 11.5 - 14.1 % [facility] Mean Platelet Volume 9.0 7.6 - 12.9 fL [facility] NRBC% auto 0.0 % [facility] NRBC Absolute 0.000 0.000 - 0.000 x10(3)/mc L [facility] Blood 06/23/2022 11:4 7 AM EST 06/23/2022 11:51 AM EST Narrative Resulting Agency Comment Spec In Lab Leandra Lopes APRN HEMATOLOGY ORDERAB LES Performing Organization Address City/[facility]/ZIP Co de Phone Number [facility] [place] [address] * (ABNORMAL) Comprehensive metabolic panel (non-fasting) (06/23/2022 11:47 AM EST) Glucose 274(H) 65 - 199 mg/dL [facility] Comment:Diabetes: >=200 mg/d L plus symptoms Blood Urea Nitrogen 12 8 - 18 mg/dL [facility] Creatinine 0.92 0.70 - 1.20 mg/dL [facility] Sodium 139 135 - 145 mmol/L [facility] Potassium 4.1 3.5 - 5.0 mmol/L [facility] Comment: Please note: ??Patients with WBC >100,000 may have falsely elevated Potassium levels. ??For accurate Potassium quantification in these patients send serum separator tube (gold top) for subsequent determinations. ??Contact the Clinical Chemistry Laboratory if there are any questions. Chloride 104 98 - 107 mmol/L [facility] Carbon Dioxide 25 22 - 31 mmol/L [facility] Anion Gap 10 5 - 15 mmol/L [facility] Calcium 9.6 8.5 - 10.5 mg/dL [facility] Protein, Total 7.0 6.1 - 8.0 g/dL [facility] Albumin 4.2 3.2 - 5.2 g/dL [facility] Aspartate Aminotransferase 16 0 - 30 unit/L [facility] Alanine Aminotransferase 27 0 - 30 unit/L [facility] Alkaline Phosphatase 113(H) 35 - 105 unit/L [facility] Bilirubin, Total 0.5 0.2 - 1.3 mg/dL [facility] Est Glomerular Filtration Rate 70 >=60 mL/min/1. 73 m?? [facility] Comment: This patient's estimated [...] Agency Comment Spec In Lab Leandra Lopes ASSIGNMENT OFFICER CHEMISTRY ORDERABL ES [facility] [place] [address] documented in this encounter Visit Diagnoses Diagnosis Ocular melanoma, left documented in this encounter Care Teams Office Technician Relationship Specialty Start Date End Date Luis E Narayan MD [facility] [address] [place] [address] PCP - General Family Medicine 01/20/22 07/17/22 documented as of this encounter
--- OUTSIDE RECORDS SUMMARY | 2024-04-13 15:44 | XMS_ITS | Encounter Summary ---
Author Organization [facility] Address [facility] [address] Care Team Providers Care Framing Carpenter Name Role Phone Luis E Narayan MD Primary Care Provider +1 [phone] Encounter Details Date Type Department Care Team [...] 05/01/2024 11:20 AM EDT Appointment Mammography/[place] [address] Rodney Padilla MD [address] [place] [address] 05/01/2024 1:45 PM EDT Office [place] [address] Juanpablo Hernandez MD [facility] [address] 05/23/2024 2:45 PM EST Clinical Support Family Medicine at [facility] [address] [place] [address] Julia Low [facility] 01/30/2025 1:30 PM EDT Laboratory Appointment Lab at [facility] Hematology Oncology [address] [place] [address] 01/30/2025 3:[address] [place] [address] Arturo Cordero MD [facility] DR HEMATOLOGY [place] [address] 01/30/2025 4:15 PM EDT Office Visit Hematology [place] [address] Arturo Cordero MD [facility] HEMATOLOGY [place] [address] documented as of this encounter Visit Diagnoses Not on filedocumented in this encounter Care Teams Framing Carpenter Relationship Specialty Start Date End Date Luis E Narayan MD [facility] [address]-[place] [address] PCP - General Family Medicine 01/20/22 07/17/22 documented as of this encounter
--- OUTSIDE RECORDS SUMMARY | 2024-04-13 15:44 | XMS_ITS | Encounter Summary ---
Author Organization [facility] Address [facility] [address] Care Team Providers Care Wellness Rn Name Role Phone Luis E Narayan MD Primary Care Provider +1- [phone] Encounter Details Date Type Department Care Team [...] 05/01/2024 11:20 AM EDT Appointment Mammography/[place] [address] Rodney Padilla MD [address] [place] [address] 05/01/2024 1:45 PM EDT Office Visit [place] [address] Juanpablo Hernandez MD [facility] [address] 05/23/2024 2:45 PM EST Clinical Support Family Medicine at [facility] [address] [place] [address] Julia Low [facility] 01/30/2025 1:30 PM EDT Laboratory Appointment Lab at [facility] Hematology Oncology [address] [place] [address] 01/30/2025 3:[address] [place] [address] Arturo Cordero MD [facility] DR [place]EMATOLOG[place] [address] 01/30/2025 4:15 PM EDT Office Visit Hematology [place] [address] Arturo Cordero MD [facility] [place]ATOLOG[place] [address] documented as of this encounter Visit Diagnoses Not on filedocumented in this encounter Care Teams Wellness Rn Relationship Specialty Start Date End Date Luis E Narayan MD [facility] [address] [place] [address] PCP - General Family Medicine 01/20/22 07/17/22 documented as of this encounter
--- OUTSIDE RECORDS SUMMARY | 2024-04-13 15:44 | XMS_ITS | Encounter Summary ---
Author Organization [facility] Address [facility] [place] [address] Care Team Providers Care Central Melt Specialist Name Role Phone Luis E Narayan MD Primary Care Provider [phone]- [phone] Encounter Details Date Type Department Care Team (Late st Contact Info) Description 06/21/2022 Orders Only Hematology [place] [address] Leandra Lopes, ADMINISTRATION INTERN [facility] HEMATOLOGY AND [place] [address] Ocular melanoma, left Social History Tobacco Use [...] 05/01/2024 11:20 AM EDT Appointment Mammography/[place] [address] Rodney Padilla MD [address] [facility] [place] [address] 05/01/2024 1:45 PM EDT Office Visit [place] [address] Juanpablo Hernandez MD [facility] DR OPHTHALM[place] [address] 05/23/2024 2:45 PM EST Clinical Support Family Medicine at [facility] [address] [place] [phone] Julia Low RPH 01/30/2025 1:30 PM EDT Laboratory Appointment Lab [place] [facility] [place] [address] [place] [address] 01/30/2025 3:[address] [place] [address] Arturo Cordero MD [facility] DR HEMATOLOGY AND [place] [address] 01/30/2025 4:15 PM EDT Office Visit Hematology [place] [address] Arturo Cordero MD [facility] DR HEMATOLOGY [place] [address] documented as of this encounter Results * (ABNORMAL) Comprehensive metabolic panel (non-fasting) (06/23/2022 11:47 AM EST) Glucose 274(H) 65 - 199 mg/dL [facility] Comment:Diabetes: >=200 mg/d L plus symptoms Blood Urea Nitrogen 12 8 - 18 mg/dL [facility] Creatinine 0.92 0.70 - 1.20 mg/dL [facility] Sodium 139 135 - 145 mmol/L [facility] Potassium 4.1 3.5 - 5.0 mmol/L [facility] Comment: Please note: ??Patients with WBC >100,000 may have falsely elevated Potassium levels. ??For accurate Potassium quantification in these patients send serum separator tube (gold top) for subsequent determinations. ??Contact the Clinical Chemistry Laboratory if there are any questions. Chloride 104 98 - 107 mmol/L [facility] Carbon Dioxide 25 22 - 31 mmol/L [facility] Anion Gap 10 5 - 15 mmol/L [facility] Calcium 9.6 8.5 - 10.5 mg/dL [facility] Protein, Total 7.0 6.1 - 8.0 g/dL [facility] Albumin 4.2 3.2 - 5.2 g/dL [facility] Aspartate Aminotransferase 16 0 - 30 unit/L [facility] Alanine Aminotransferase 27 0 - 30 unit/L [facility] Alkaline Phosphatase 113(H) 35 - 105 unit/L [facility] Bilirubin, Total 0.5 0.2 - 1.3 mg/dL [facility] Est Glomerular Filtration Rate 70 >=60 mL/min/1. 73 m?? [facility] Comment: This patient's estimated GFR [...] APRN CHEMISTRY ORDERABL ES Performing Organization Address City/State/[facility] Co de Phone Number [facility] [place] [address] documented in this encounter Visit Diagnoses Diagnosis Ocular melanoma, left documented in this encounter Care Teams Central Melt Specialist Relationship Specialty Start Date End Date Luis E Narayan MD [facility] DR [address] [place]-[facility] [place] [address] PCP - General Family Medicine 01/20/22 07/17/22 documented as of this encounter
--- OUTSIDE RECORDS SUMMARY | 2024-04-13 15:44 | XMS_ITS | Encounter Summary ---
Author Organization [facility] Address [facility] [place] [address] Care Team Providers Care Wildland Firefighter Name Role Phone Luis E Narayan MD Primary Care Provider [phone] Encounter Details Date Type Department Care Team [...] 05/01/2024 11:20 AM EDT Appointment Mammography/[place] [address] Rodney Padilla MD [address] [place] [address] 05/01/2024 1:45 PM EDT Office [place] [address] Juanpablo Heranndez MD [facility] [place] [address] 05/23/2024 2:45 PM EST Clinical Support Family Medicine at [facility] [address] [place] [address] Julia Low [facility] 01/30/2025 1:30 PM EDT Laboratory Appointment Lab at [facility] Hematology Oncology [address] [place] [address] 01/30/2025 3:[address] [place] [address] Arturo Cordero MD [facility] DR HEMATOLOGY [place] [address] 01/30/2025 4:15 PM EDT Office Visit Hematology [place] [address] Arturo Cordero MD [facility] HEMATOLOGY [place] [address] documented as of this encounter Visit Diagnoses Not on filedocumented in this encounter Care Teams Wildland Firefighter Relationship Specialty Start Date End Date Luis E Narayan MD [facility] [address] [place] [address] PCP - General Family Medicine 01/20/22 07/17/22 documented as of this encounter
--- OUTSIDE RECORDS SUMMARY | 2024-04-13 15:44 | XMS_ITS | Encounter Summary ---
Author Organization [facility] Address [facility] [place] [address] Care Team Providers Care Chief Information Security Officer Name Role Phone Luis E Narayan MD Primary Care Provider +[phone]- [phone] Reason for Visit * Reason Onset Date Comments Medication Refill 07/11/2022 Encounter Details Date Type Department Care Team (Late st Contact Info) Description 07/11/2022 Refill Family Medicine at [facility] [address] [place] [address] Ally [place] APRN [facility] [place] [address] Social History Tobacco Use Types Packs/Day Years [...] 05/01/2024 11:20 AM EDT Appointment Mammography/[place] [address] Rodney Padilla MD [address] [place] [address] 05/01/2024 1:45 PM EDT Office [place] [address] Juanpablo Hernandez MD [facility] [place] [place] [address] 05/23/2024 2:45 PM EST Clinical Support Family Medicine at [facility] [address] [place] [address] Julia Low [facility] 01/30/2025 1:30 PM EDT Laboratory Appointment Lab at [facility] Hematology Oncology [address] [place] [address] 01/30/2025 3:[address] [place] [address] Arturo Cordero MD [facility] [place] [address] 01/30/2025 4:15 PM EDT Office Visit Hematology [place] [address] Arturo Cordero MD [facility] [place] [address] documented as of this encounter Visit Diagnoses Not on filedocumented in this encounter Care Teams Chief Information Security Officer Relationship Specialty Start Date End Date Luis E Narayan MD [facility] [place] [place] [address] PCP - General Family Medicine 01/20/22 07/17/22 documented as of this encounter
--- OUTSIDE RECORDS SUMMARY | 2024-04-13 15:44 | XMS_ITS | Encounter Summary ---
Author Organization [place] [address] Care Team Providers Care R Developer Name Role Phone Rodney Padilla MD Primary Care Provider +1- [phone] Reason for Visit * Reason Comments Eye Problem Diabetic Eye Exam Encounter Details Date Type Department Care Team (Late st Contact Info) Description 10/05/2022 12:45 PM EDT Office [place] [address] Juanpablo Hernandez MD [facility] [place] [address] Malignant melanoma of conjunctiva, left; Type 2 [...] 05/01/2024 11:20 AM EDT Appointment Mammography/[place] [address] Rodney Padilla MD [address] FAMILY MEDICINE [place], [place] [address] 05/01/2024 1:45 PM EDT Office [place] [address] Juanpablo Hernandez MD [facility] [place] [address] 05/23/2024 2:45 PM EST Clinical Support Family Medicine at [facility] [address] [place] [address] Julia Low, [facility] 01/30/2025 1:30 PM EDT Laboratory Appointment Lab at [facility] Hematology Oncology [address] [place] [address] 01/30/2025 3:[address] [place] [address] Arturo Cordero MD [facility] [address] [place] [address] 01/30/2025 4:15 PM EDT Office Visit Hematology [place] [address] Arturo Cordero MD [facility] [address] [place] [address] documented as of this encounter Procedures Procedure [...] insulin documented in this encounter Care Teams R Developer Relationship Specialty Start Date End Date Rodney Padilla MD [address] [place] [address] PCP - General 07/18/22 04/09/24 documented as of this encounter
--- OUTSIDE RECORDS SUMMARY | 2024-04-13 15:44 | XMS_ITS | Encounter Summary ---
Author Organization [facility] [place] [address] Care Team Providers Care Back End Web Developer Name Role Phone Rodney Padilla MD Primary Care Provider Reason for Visit * Reason Comments Diabetes Encounter Details Date Type Department Care Team (Late st Contact Info) Description 10/05/2022 3:30 PM EDT Clinical Support Family Medicine at [facility] [address] [place] [address] Julia Low, [facility] Type 2 diabetes mellitus without long-term current [...] encounter Progress Notes * Julia Low [facility] - 10/05/2022 3:30 PM EDT Clinical Pharmacist [...] any of the following conditions: Yes [x] MO/Stroke/CAD [] Retinopathy [] CHF [x] Neuropathy [] [...] Daily Avg 157 168 131 138 eA1c [id number] 8.46 7.20 7.44 Acute complications of diabetes: [...] 5 ??? fluticasone propionate (Flonase) 50 mcg/actuation Levels, Suspension 1 spray by Each Nare route [...] ??? Nebulizer Accessories Misc 1 each by [facility]Non-Drug; Combo Route) route every 4 hours as [...] 1 each 11 ??? FreeStyle Sanjana 2 [place] Misc 1 each by Other route daily. [...] glycohemoglobin and other lab monitoring discussed and long line teamster diabetic complications discussed. Efforts to improve adherence [...] 05/01/2024 11:20 AM EDT Appointment Mammography/[place] [address] Rodney Padilla MD [address] [place] [address] 05/01/2024 1:45 PM EDT Office [place] [address] Juanpablo Hernandez MD [facility] [place] [address] 05/23/2024 2:45 PM EST Clinical Support Family Medicine at [facility] [address] [place] [address] Julia Low RPH 01/30/2025 1:30 PM EDT Laboratory Appointment Lab at [facility] Hematology Oncology [address] [place] [id number] 01/30/2025 3:[address] [place] [address] Arturo Cordero MD [facility] [address] [place] [address] 01/30/2025 4:15 PM EDT Office Visit [place]ology [place] [address] Arturo Cordero MD [facility] [address] [place] [address] documented as of this encounter Procedures Procedure [...] Primary documented in this encounter Care Teams Back End Web Developer Relationship Specialty Start Date End Date Rodney Padilla MD [address] [place] [place] [address] PCP - General 07/18/22 04/09/24 documented as of this encounter
--- OUTSIDE RECORDS SUMMARY | 2024-04-13 15:44 | XMS_ITS | Encounter Summary ---
Author Organization Formerly [facility] Address [facility] [place] [address] Care Team Providers Care Hand Mold Maker Name Role Phone Luis E Narayan MD Primary Care Provider +1- [phone] Reason for Visit * Reason Comments Abdominal Pain LLQ, bloating, gas, heartburn, ER last night, CT scan Monday Encounter Details Date Type Department Care Team (Late st Contact Info) Description 06/07/2022 11:00 AM EST Office Visit Family Medicine at [facility] [address] [place] [address] Tamera Khan, KATHIA [facility] DR LILI [place] [address] Chest pain, unspecified type; Urinary urgency; Upper abdominal pain; Bloating; Severe obesity; 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 female, presenting for ED follow up Chief Complaint Patient presents with ??? 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 GERD related, [...] 05/01/2024 11:20 AM EDT Appointment Mammography/[place] [phone] Rodney Padilla MD [address] [place] [address] 05/01/2024 1:45 PM EDT Office [place] [address] Juanpablo Hernandez MD [facility] [address] 05/23/2024 2:45 PM EST Clinical Support Family Medicine at [facility] [address] [place] [phone] Julia Low RPH 01/30/2025 1:30 PM EDT Laboratory Appointment Lab at [facility] Hematology Oncology [address] [place] [address] 01/30/2025 3:[address] [place] [address] Arturo Cordero MD [facility] [place] [address] 01/30/2025 4:15 PM EDT Office Visit Hematology and Oncology at [facility] [place] [address] Arturo Cordero MD [facility] [place] [address] documented as of this encounter Procedures Procedure Name Priority Date/Time Associated Diagnosis Comments POCT URINE DIPSTICK Routine 06/07/2022 1 2:12 PM EST Urinary urgency EKG 12-LEAD Routine 06/07/2022 12:07 PM EST Chest pain, unspecified type documented in this encounter Results * (ABNORMAL) POCT urine dipstick (06/07/2022 12:12 PM EST) [facility] POC Sp Oolitic 1.020 1.002 - 1.030 POC pH, UA [...] (specimen) 06/07/2022 12:12 PM EST Tamera Khan METAL DRAWER POINT OF CARE TEST O RDERABLES * EKG 12 Lead (06/07/2022 12:07 PM EST) [facility] Ventricular rate 68 BPM MUSE SYSTEM Atrial Rate 68 BPM MUSE SYSTEM P-R Interval 148 ms MUSE SYSTEM QRS Duration 90 ms MUSE SYSTEM Q-T Interval 402 ms MUSE SYSTEM QTC Calculated (Bezet) 427 ms MUSE SYSTEM Calculated P Crucible -2 degrees MUSE SYSTEM Calculated R Crucible 22 degrees MUSE SYSTEM Calculated T Crucible 45 degrees MUSE SYSTEM INTERPRETATION Normal sinus rhythm Nonspecific T wave abnormality When compared with ECG of 31-MAY-2021 17:16, No significant change was found I personally reviewed the tracing and agree with the fellows interpretation Confirmed by fellow MD Valarie, Molly ([id number]) on 06/07/2022 8:59:36 PM Confirmed by MD [...] obesity Morbid obesity 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
--- OUTSIDE RECORDS SUMMARY | 2024-04-13 15:44 | XMS_ITS | Encounter Summary ---
Author Organization [facility] Address [facility] [place] [address] Care Team Providers Care Chef Concierge Name Role Phone Luis E Narayan MD Primary Care Provider +1- [phone] Reason for Visit * Reason Comments Follow-up Doesn't feel good, a lso just finished antibiotics for sinus infection, pt thinks there is some type of lung infection Encounter Details Date Type Department Care Team (Late st Contact Info) Description 07/07/2022 11:30 AM EST Office Visit Family Medicine at [facility] [address] [place] [phone] Tamera Khan, BEARING GRINDER [facility] DR LILI [place] [address] LLQ pain; Acute rhinosinusitis; Fatty liver Social [...] office to schedule a follow up. Call- [phone] to schedule the gastric emptying scan Nutrition: How to Make Healthier Food Choices From: familydoctor.org/wlydxultf-mob-fw-zvwe-drtskgcyf-zsbp-choices Having a healthy diet has a lot [...] made up of more than 50% fat. Financial Administrator options, such as maria victoria food cake, can satisfy your sweet tooth without adding fat to your diet. Instead of this: Try this: Croissants, rolls, biscuits, and white breads Whole grain breads, including wheat, rye, and pumpernickel Doughnuts, pastries, and scones Kazakh muffins and small whole grain bagels Fried [...] almond, or cashew) butter Fried potatoes, including wallisian fries, hash browns, and potato chips Baked [...] seafood is high in healthy polyunsaturated fat. [place]-3 fatty acids also are found in some [...] and loin cuts Pork spare ribs and don Lean pork, such as tenderloin and loin [...] low-fat, high-calcium snack option. - Nonfat or Belizean yogurt can replace sour cream in many [...] made with whole milk Low-fat, nonfat, or Belizean yogurt Regular cheese, including Ukrainian, blue, brie, cheddar, karen, and parmesan Low-fat [...] and molasses cookies Shortening, butter, and margarine [place], canola, and soybean oils Regular mayonnaise Nonfat [...] follow up on her CT done by [facility] - questions about fatty liver dx on scan Recently was seen in the ED for sinus infection, finished course of abx Still having a non productive cough, sinus pressure and mild fever Denies chills, chest pain, shortness of breath Review of Systems As above I reviewed problem list and med list in [facility] Objective: BP 138/76 Pulse 79 Temp 36.1 [...] 05/01/2024 11:20 AM EDT Appointment Mammography/[place] [phone] Rodney Padilla MD [address] [facility] [place] [address] 05/01/2024 1:45 PM EDT Office [place] [address] Juanpablo Hernandez MD [facility] [place] [address] 05/23/2024 2:45 PM EST Clinical Support Family Medicine at [facility] [address] [place] [phone] Julia Low [facility] 01/30/2025 1:30 PM EDT Laboratory Appointment Lab at [facility] Hematology Oncology [address] [place] [address] 01/30/2025 3:[address] [place] [address] Arturo Cordero MD [facility] DR [place] [address] 01/30/2025 4:15 PM EDT Office Visit [place]ology [place] [address] Arturo Cordero MD [facility] DR [place] [address] documented as of this encounter Visit Diagnoses Diagnosis LLQ pain Abdominal pain, left lower quadrant Acute rhinosinusitis Acute sinusitis, unspecified Fatty liver Other chronic nonalcoholic liver disease documented in this encounter Care Teams Chef Concierge Relationship Specialty Start Date End Date Luis E Narayan MD [facility] [address] [place] [address] PCP - General Family Medicine 01/20/22 07/17/22 documented as of this encounter
--- OUTSIDE RECORDS SUMMARY | 2024-04-13 15:44 | XMS_ITS | Encounter Summary ---
Author Organization [facility] Address [facility] [place] [address] Care Team Providers Care Certified Executive Chef Name Role Phone Luis E Narayan MD Primary Care Provider [phone]- [phone] Reason for Visit * Reason Onset Date Comments Medication Refill 06/19/2022 Encounter Details Date Type Department Care Team (Late st Contact Info) Description 06/19/2022 Refill Family Medicine at [facility] [address] [place] [address] Tamera Khan, LIGHTING FIXTURES DECORATOR [facility] DR [address] [place] [address] Bloating Social History Tobacco Use Types Packs/Day [...] 05/01/2024 11:20 AM EDT Appointment Mammography/[place] [address] Rodney Padilla MD [address] ROBERT[facility] [place] [address] 05/01/2024 1:45 PM EDT Office [place] [address] Juanpablo Hernandez MD [facility] [place] [address] 05/23/2024 2:45 PM EST Clinical Support Family Medicine at [facility] [address] [place] [address] Julia Low, [facility] 01/30/2025 1:30 PM EDT Laboratory Appointment Lab at [facility] Hematology Oncology [address] [place] [address] 01/30/2025 3:[address] [place] [address] Arturo Cordero MD [facility] [place] [address] 01/30/2025 4:15 PM EDT Office Visit H[place]ology [place] [address] Arturo Cordero MD [facility] DR [place] [address] documented as of this encounter Visit Diagnoses Diagnosis Bloating Flatulence, eructation, and gas pain documented in this encounter Care Teams Certified Executive Chef Relationship Specialty Start Date End Date Luis E Narayan MD [facility] [address] [place] [address] PCP - General Family Medicine 01/20/22 07/17/22 documented as of this encounter
--- OUTSIDE RECORDS SUMMARY | 2024-04-13 15:44 | XMS_ITS | Encounter Summary ---
Author Organization [facility] Address [facility] [place] [address] Care Team Providers Care Oven Dumper Name Role Phone Rodney Padilla MD Primary Care Provider [phone] Reason for Visit * Reason Comments Medication Refill Encounter Details Date Type Department Care Team (Late st Contact Info) Description 09/15/2022 Refill Family Medicine at [facility] [address] [place] [address] Tamera Khan APRN [facility] DR [address]IL[address] [place] [address] Social History Tobacco Use Types Packs/Day Years [...] 05/01/2024 11:20 AM EDT Appointment Mammography/[place] [address] Rodney Padilla MD [address] [facility] [place] [address] 05/01/2024 1:45 PM EDT Office [place] [address] Juanpablo Hernandez MD [facility] [place] [address] 05/23/2024 2:45 PM EST Clinical Support Family Medicine at [facility] [address] [place] [address] Julia Low, [facility] 01/30/2025 1:30 PM EDT Laboratory Appointment Lab at [facility] Hematology Oncology [address] [place] [address] 01/30/2025 3:[address] [place] [address] Atruro Cordero MD [facility] DR [place] [address] 01/30/2025 4:15 PM EDT Office Visit Hematology [place] [address] Arturo Cordero MD [facility] DR HEMATOLOGY AND ONCOLOGY [place], [place] [address] documented as of this encounter Visit Diagnoses Not on filedocumented in this encounter Care Teams Oven Dumper Relationship Specialty Start Date End Date Rodney Padilla MD [address] [place] [address] PCP - General 07/18/22 04/09/24 documented as of this encounter
--- OUTSIDE RECORDS SUMMARY | 2024-04-13 15:44 | XMS_ITS | Encounter Summary ---
Author Organization [facility] Address [facility] [place] [address] Care Team Providers Care Plant Propagator Name Role Phone Luis E Narayan MD Primary Care Provider [phone] Encounter Details Date Type Department Care Team [...] 05/01/2024 11:20 AM EDT Appointment Mammography[place] [address] Rodney Padilla MD [address] [place] [address] 05/01/2024 1:45 PM EDT Office [place] [address] Juanpablo Hernandez MD [facility] [place] [address] 05/23/2024 2:45 PM EST Clinical Support Family Medicine at [facility] [address] [place] [address] Julia Low [facility] 01/30/2025 1:30 PM EDT Laboratory Appointment Lab at [facility] Hematology Oncology [address] [place] [address] 01/30/2025 3:[address] [place] [address] Arturo Cordero MD [facility] DR [place] [address] 01/30/2025 4:15 PM EDT Office Visit [place]ematology [place] [address] Arturo Cordero MD [facility] [place] [address] documented as of this encounter Visit Diagnoses Not on filedocumented in this encounter Care Teams Plant Propagator Relationship Specialty Start Date End Date Luis E Narayan MD [facility] [address] [place] [address] PCP - General Family Medicine 01/20/22 07/17/22 documented as of this encounter
--- OUTSIDE RECORDS SUMMARY | 2024-04-13 15:44 | XMS_ITS | Encounter Summary ---
Author Organization [facility] Address [facility] [place] [address] Care Team Providers Care Anesthesiology Resident Name Role Phone Daryn Garrett MD Primary Care Provider Reason for Visit * Reason Onset Date Comments Medication Refill 06/20/2022 Encounter Details Date Type Department Care Team (Late st Contact Info) Description 06/20/2022 Refill Family Medicine at [facility] [address] [place] [address] Luis E Narayan MD [facility] DR [address] [place] [address] COPD Social History Tobacco Use Types Packs/Day [...] Miscellaneous Notes * Telephone Encounter - Jade rKuse MA - 06/23/2022 9:19 AM EST Prescription [...] 05/01/2024 11:20 AM EDT Appointment Mammography/[place] [address] Rodney Padilla MD [address] [place] [place] [address] 05/01/2024 1:45 PM EDT [place] [address] Juanpablo Hernandez MD [facility] [place] [address] 05/23/2024 2:45 PM EST Clinical Support Family Medicine at [facility] [address] [place] [address] Julia Low [facility] 01/30/2025 1:30 PM EDT Laboratory Appointment Lab at [facility] Hematology Oncology [address] [place] [address] 01/30/2025 3:[address] [place] [place] [address] Arturo Cordero MD [facility] DR [place] [address] 01/30/2025 4:15 PM EDT Office Visit [place]ology [place] [address] Arturo Cordero MD [facility] [address] [place] [address] documented as of this encounter Visit Diagnoses Diagnosis COPD Simple chronic bronchitis documented in this encounter Care Teams Anesthesiology Resident Relationship Specialty Start Date End Date Daryn Garrett MD [facility] DR [address] [place] [address] PCP - General 04/10/24 documented as of this encounter
--- OUTSIDE RECORDS SUMMARY | 2024-04-13 15:44 | XMS_ITS | Encounter Summary ---
[place] [address] Care Team Providers Care Four H Club Agent Name Role Phone Rodney Padilla MD Primary Care Provider [phone] Reason for Visit * Diagnostic Test (Routine) - Closed Specialty Diagnoses / Procedures Referred By Gonzalez kumari Referred To Contact Radiology Diagnoses Dyspepsia Nausea without vomiting Procedures NM Gastric Emptying Scan Alejandra Pop, FIXED CAPITAL CLERK [address] [place] [place] [address] [place] [address] Referral ID Status Reason Start Date Expiration Date V isits Requested Visits Authorized [id number] Closed Specialty Service Requested 06/17/2022 12/17/2023 1 1 Encounter Details Date Type Department Care Team (Latest Contact Info) Description 10/18/2022 10:22 AM EDT - 10/18/2022 11:59 PM EDT Hospital Encounter [place] [address] Alejandra Pop APRN [address] [place] [place] [address] Discharge Disposition: Home Social History [...] 09/26/2022 09/19/2023 fluticasone propionate (Flonase) 50 mcg/actuation [place], Suspension 1 spray by Each Nare route [...] 1 each 12/10/2021 02/04/2023 FreeStyle Sanjana 2 [place] MiscIndications:diabe escobar mellitus 1 each by Other [...] 05/01/2024 11:20 AM EDT Appointment Mammography/[place] [address] Rodney Padilla MD [address] [place] [place] [address] 05/01/2024 1:45 PM EDT Office [place] [address] Juanpablo Hernandez MD [facility] [place] [address] 05/23/2024 2:45 PM EST Clinical Support Family Medicine at [facility] [address] [place] [address] Julia Low, [facility] 01/30/2025 1:30 PM EDT Laboratory Appointment Lab at [facility] Hematology Oncology [address] [place] [address] 01/30/2025 3:[address] [place] [address] Arturo Cordero MD [facility] DR [place] [address] 01/30/2025 4:15 PM EDT Office Visit Hematology [place] [address] Arturo Cordero MD [facility] DR [place] [address] documented as of this encounter Procedures Procedure [...] questions please contact the health child care sitter that requested your imaging first. ? Electronically signed by: Brett Chapman MD, [facility] ([phone]), at 10/18/2022 3:12 PM Narrative 10/18/2022 3:12 [...] have questions please contactthe health child care sitter that requested your imaging first. Alejandra Pop FIXED CAPITAL CLERK IMG NM ORDERABLE S documented in this encounter Visit Diagnoses Not on filedocumented in this encounter Care Teams Four H Club Agent Relationship Specialty Start Date End Date Rodney Padilla MD [address] [place] [address] PCP - General 07/18/22 04/09/24 documented as of this encounter
--- OUTSIDE RECORDS SUMMARY | 2024-04-13 15:44 | XMS_ITS | Encounter Summary ---
Author Organization [facility] Address [facility] [place] [address] Care Team Providers Care Mortgage Loan Specialist Name Role Phone Rodney Padilla MD Primary Care Provider Reason for Visit * Reason Onset Date Comments Medication Refill 09/25/2022 Encounter Details Date Type Department Care Team (Late st Contact Info) Description 09/25/2022 Refill Family Medicine at [facility] [address] [place] [address] Luis E Narayan MD [facility] DR [address] WALKER[place] [address] Social History Tobacco Use Types Packs/Day Years [...] Notes * Telephone Encounter - Alba Bolton [facility] - 09/26/2022 11:40 AM EDT Prescription Renewal [...] 05/01/2024 11:20 AM EDT Appointment Mammography/[place] [address] Rodney Padilla MD [address] [place] [address] 05/01/2024 1:45 PM EDT Office [place] [address] Juanpablo Hernandez MD [facility] [place] [address] 05/23/2024 2:45 PM EST Clinical Support Family Medicine at [facility] [address] [place] [address] Julia Low [facility] 01/30/2025 1:30 PM EDT Laboratory Appointment Lab at [facility] Hematology Oncology [address] [place] [address] 01/30/2025 3:[address] [place] [address] Arturo Cordero MD [facility] DR HEMATOLOGY [place] [address] 01/30/2025 4:15 PM EDT Office Visit Hematology [place] [address] Arturo Cordero MD [facility] DR HEMATOLOGY [place] [address] documented as of this encounter Visit Diagnoses Not on filedocumented in this encounter Care Teams Mortgage Loan Specialist Relationship Specialty Start Date End Date Rodney Padilla MD [address] [place] [address] PCP - General 07/18/22 04/09/24 documented as of this encounter
--- OUTSIDE RECORDS SUMMARY | 2024-04-13 15:44 | XMS_ITS | Encounter Summary ---
Author Organization [facility] Address [facility] [place] [address] Care Team Providers Care Quality Systems Manager Name Role Phone Rodney Padilla MD Primary Care Provider Reason for Visit * Reason Onset Date Comments Medication Refill 09/25/2022 Encounter Details Date Type Department Care Team (Late st Contact Info) Description 09/25/2022 Refill Family Medicine at [facility] [address] [place] [address] Luis E Narayan MD [facility] [address] [place] [address] Social History Tobacco Use Types Packs/Day Years [...] Notes * Telephone En[facility] - [facility] 09/26/2022 11:41 AM EDT Prescription Renewal Request Name: Alize Gramajo : 1960 Prescription(s) Requested: Requested Prescriptions Pending Prescriptions Disp Refills ??? fluticasone propionate (Flonase) 50 mcg/actuation [place], Suspension 16 g 11 Si spray by [...] 05/01/2024 11:20 AM EDT Appointment Mammography/[place] [address] Rodney Padilla MD [address] [place] [address] 05/01/2024 1:45 PM EDT Office Visit [place] [address] Juanpablo Hernandez MD [facility] DR OPHTHALMOLOGY [place], [place] [address] 05/23/2024 2:45 PM EST Clinical Support [facility] Medicine at [facility] [address] [place] [address] Julia Low, [facility] 01/30/2025 1:30 PM EDT Laboratory Appointment Lab at [facility] Hematology Oncology [address] [place] [address] 01/30/2025 3:[address] [place] [address] Arturo Cordero MD [facility] DR H[place]AT[place] [address] 01/30/2025 4:15 PM EDT Office Visit Hematology [place] [address] Arturo Cordero MD [facility] DR HEMATOLOGY AND ONCOLOGY [place], [place] [address] documented as of this encounter Visit Diagnoses Not on filedocumented in this encounter Care Teams Quality Systems Manager Relationship Specialty Start Date End Date Rodney Padilla MD [address] [place] [address] PCP - General 07/18/22 04/09/24 documented as of this encounter
--- OUTSIDE RECORDS SUMMARY | 2024-04-13 15:44 | XMS_ITS | Encounter Summary ---
Author Organization [facility] Address [facility] [place] [address] Care Team Providers Care Drapery Head Former Name Role Phone Rodney Padilla MD Primary Care Provider +1- [phone] Encounter Details Date Type Department Care Team [...] 05/01/2024 11:20 AM EDT Appointment Mammography/[place] [address] Rodney Padilla MD [address] [place] [address] 05/01/2024 1:45 PM EDT Office [place] [address] Juanpablo Hernandez MD [facility] [place] [address] 05/23/2024 2:45 PM EST Clinical Support Family Medicine at [facility] [address] [place] [address] Julia Low [facility] 01/30/2025 1:30 PM EDT Laboratory Appointment Lab at [facility] Hematology Oncology [address] [place] [address] 01/30/2025 3:[address] [place] [address] Arturo Cordero MD [facility] DR HEMATOLOGY [place] [address] 01/30/2025 4:15 PM EDT Office Visit Hematology [place] [address] Arturo Cordero MD [facility] DR HEMATOLOGY [place] [address] documented as of this encounter Visit Diagnoses Not on filedocumented in this encounter Care Teams Drapery Head Former Relationship Specialty Start Date End Date Rodney Padilla MD [address] [place] [address] PCP - General 07/18/22 04/09/24 documented as of this encounter
--- OUTSIDE RECORDS SUMMARY | 2024-04-13 15:44 | XMS_ITS | Encounter Summary ---
Author Organization [facility] Address [facility] [place] [address] Care Team Providers Care Pearl Technician Name Role Phone Rodney Padilla MD Primary Care Provider +1- [phone] Encounter Details Date Type Department Care Team [...] 05/01/2024 11:20 AM EDT Appointment Mammography/[place] [address] Rodney Padilla MD [address] [place] [address] 05/01/2024 1:45 PM EDT Office [place] [address] Juanpablo Hernandez MD [facility] [place] [address] 05/23/2024 2:45 PM EST Clinical Support Family Medicine at [facility] [address] [place] [address] Julia Low [facility] 01/30/2025 1:30 PM EDT Laboratory Appointment Lab at [facility] Hematology Oncology [address] [place] [address] 01/30/2025 3:[address] [place] [address] Arturo Cordero MD [facility] DR [place] [address] 01/30/2025 4:15 PM EDT Office Visit Hematology [place] [address] Arturo Cordero MD [facility] DR [place] [address] documented as of this encounter Visit Diagnoses Not on filedocumented in this encounter Care Teams Pearl Technician Relationship Specialty Start Date End Date Rodney Padilla MD [address] [place] [place] [address] PCP - General 07/18/22 04/09/24 documented as of this encounter
--- OUTSIDE RECORDS SUMMARY | 2024-04-13 15:44 | XMS_ITS | Encounter Summary ---
Author Organization [facility] [place] [address] Care Team Providers Care Douper Name Role Phone Luis E Narayan MD Primary Care Provider +1- [phone] Reason for Visit * Reason Comments Follow-up Encounter Details Date Type Department Care Team (Late st Contact Info) Description 06/23/2022 2:45 PM EST Office Visit [place] [address] Arturo Cordero MD [facility] [address] [place] [address] Leandra Lopes APRN [facility] [place] [address] Malignant melanoma of conjunctiva, left (Primary Dx); [...] from the original note were not included. [facility] FOLLOW UP NOTE REFERING PHYSICIAN: [...] management - fall 2018: saw a new hoop machine operator and was referred to Dr. 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 Medina - 03/31/2020: saw her hoop machine operator Dr. Hernandez and was noted to have [...] uses inhalerswith good effect ??? Atherosclerosis of [place] coronary artery of [place] heart with angina pectoris 10/09/2007 History of [...] 3.47) performed by Juanpablo Hernandez MD at [facility] ??? PRO EXCIS CORNEA LESN Left 05/14/2020 EXCISION OF LESION, CORNEA, EXCEPT PTERYGIUM (WRVU 7.5) performed by Juanpablo Hernandez MD at [facility] ??? PRO LAP, PARTIAL NEPHRECTOMY Left 06/28/2019 LAPAROSCOPY, PARTIAL NEPHRECTOMY, ROBOTIC ASSIST (WRVU 27.41) performed by Avila Medina MD at [facility] MAIN OR ??? 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 She continues to see Dr. Hernandez (hoop machine operator), dermatology and PCP on regular basis. Surveillance [...] least annually, or as recommended by your pencil inspector. Last visit in Feb 2022. - Regular skin and lymph node self-examination should be performed. Please report any new lesions, lumps or bumps of concern to your pencil inspector or oncology team. 3) PCP for other [...] 05/01/2024 11:20 AM EDT Appointment Mammography/[place] [address] Rodney Padilla MD [address] [facility] [place] [address] 05/01/2024 1:45 PM EDT Office [place] [address] Juanpablo Hernandez MD [facility] [place] [address] 05/23/2024 2:45 PM EST Clinical Support Family Medicine at [facility] [address] [place] [address] Julia Low RPH 01/30/2025 1:30 PM EDT Laboratory Appointment Lab at [facility] Hematology Oncology [address] [place] [address] 01/30/2025 3:[address] [place] [address] Arturo Cordero MD [facility] [place] [address] 01/30/2025 4:15 PM EDT Office Visit [place]ematology [place] [address] Arturo Cordero MD [facility] [place] [address] documented as of this encounter Results * Lactate Dehydrogenase (12/29/2022 10:00 AM EDT) Lactate Dehydrogenase 175 110 - 220 unit/L [facility] Blood 12/29/2022 10:0 0 AM EDT 12/29/2022 10:13 AM EDT Narrative Resulting Agency Comment Spec In Lab Artruo Cordero MD CHEMISTRY ORDERABLES [facility] [place] [address] * (ABNORMAL) Comprehensive metabolic panel (non-fasting) (12/29/2022 10:00 AM EDT) Glucose 259(H) 65 - 199 mg/dL [facility] Comment:Diabetes: >=200 mg/d L plus symptoms Blood Urea Nitrogen 17 8 - 18 mg/dL [facility] Creatinine 0.84 0.70 - 1.20 mg/dL [facility] Sodium 140 135 - 145 mmol/L [facility] Potassium 4.5 3.5 - 5.0 mmol/L [facility] Comment: Please note: ??Patients with WBC >100,000 may have falsely elevated Potassium levels. ??For accurate Potassium quantification in these patients send serum separator tube (gold top) for subsequent determinations. ??Contact the Clinical Chemistry Laboratory if there are any questions. Chloride 104 98 - 107 mmol/L [facility] Carbon Dioxide 23 22 - 31 mmol/L [facility] Anion Gap 13 5 - 15 mmol/L [facility] Calcium 9.5 8.5 - 10.5 mg/dL [facility] Protein, Total 6.9 6.1 - 8.0 g/dL [facility] Albumin 4.1 3.2 - 5.2 g/dL [facility] Aspartate Aminotransferase 19 0 - 30 unit/L [facility] Alanine Aminotransferase 24 0 - 30 unit/L [facility] Alkaline Phosphatase 103 35 - 105 unit/L [facility] Bilirubin, Total 0.3 0.2 - 1.3 mg/dL [facility] Est Glomerular Filtration Rate 78 >=60 mL/min/1. 73 m?? [facility] Comment: This patient's estimated GFR was [...] In Lab Arturo Cordero MD CHEMISTRY ORDERABLES [facility] [place] [address] documented in this encounter Visit Diagnoses Diagnosis Malignant melanoma of conjunctiva, left- Primary Malignant neoplasm of left kidney documented in this encounter Care Teams Douper Relationship Specialty Start Date End Date Luis E Narayan MD [facility] [address] [place] [address] PCP - General Family Medicine 01/20/22 07/17/22 documented as of this encounter
--- OUTSIDE RECORDS SUMMARY | 2024-04-13 15:44 | XMS_ITS | Encounter Summary ---
Author Organization [facility] Address [facility] [place] [address] Care Team Providers Care Animal Shelter Manager Name Role Phone Rodney Padilla MD Primary Care Provider [phone]- [phone] Encounter Details Date Type Department Care Team [...] 05/01/2024 11:20 AM EDT Appointment Mammography/[place] [address] Rodney Padilla MD [address] [place] [address] 05/01/2024 1:45 PM EDT Office [place] [address] Juanpablo Hernandez MD [facility] [place] [address] 05/23/2024 2:45 PM EST Clinical Support Family Medicine at [facility] [address] [place] [address] Julia Low [facility] 01/30/2025 1:30 PM EDT Laboratory Appointment Lab at [facility] Hematology Oncology [address] [place] [address] 01/30/2025 3:[address] [place] [place] [address] Arturo Cordero MD [facility] DR HEMATOLOGY [place] [address] 01/30/2025 4:15 PM EDT Office Visit [place]ology [place] [address] Arturo Cordero MD [facility] DR HEMATOLOGY [place] [address] documented as of this encounter Visit Diagnoses Not on filedocumented in this encounter Care Teams Animal Shelter Manager Relationship Specialty Start Date End Date Rodney Padilla MD [address] [place] [address] PCP - General 07/18/22 04/09/24 documented as of this encounter
--- OUTSIDE RECORDS SUMMARY | 2024-04-13 15:44 | XMS_ITS | Encounter Summary ---
Author Organization [facility] [place] [address] Care Team Providers Care Silverware Buffing Machine Operator Name Role Phone Rodney Padilla MD Primary Care Provider [phone] Encounter Details Date Type Department Care Team (Late st Contact Info) Description 09/30/2022 Telephone Family Medicine at [address] [place] [address] Julia Low, [facility] Social History Tobacco Use Types [...] 05/01/2024 11:20 AM EDT Appointment Mammography/[place] [address] Rodney Padilla MD [address] [place] [address] 05/01/2024 1:45 PM EDT Office [place] [address] Juanpablo Hernandez MD [facility] [place] [address] 05/23/2024 2:45 PM EST Clinical Support Family Medicine at [facility] [address] [place] [address] Julai Low [place] 01/30/2025 1:30 PM EDT Laboratory Appointment Lab at [facility] Hematology Oncology [address] [place] [address] 01/30/2025 3:[address] [place] [address] Arturo Cordero MD [facility] DR HEMATOLOGY [place] [address] 01/30/2025 4:15 PM EDT Office Visit Hematology [place] [address] Arturo Cordero MD [facility] DR HEMATOLOGY [place] [address] documented as of this encounter Visit Diagnoses Not on filedocumented in this encounter Care Teams Silverware Buffing Machine Operator Relationship Specialty Start Date End Date Rodney Padilla MD [address] [place] [place] [address] PCP - General 07/18/22 04/09/24 documented as of this encounter
--- OUTSIDE RECORDS SUMMARY | 2024-04-13 15:44 | XMS_ITS | Encounter Summary ---
Author Organization [facility] [place] [place] [address] Care Team Providers Care District Sales Leader Name Role Phone Rodney Padilla MD Primary Care Provider Encounter Details Date Type Department Care Team (Late st Contact Info) Description 08/25/2022 Telephone Family Medicine at [address] [place] [address] Julia Gooden Social History Tobacco Use Types [...] - 08/25/2022 12:55 PM EST Copied from [facility] #[id number]. Topic: Forms/Letters - Health/Immunization Forms >> Aug 25, 2022 11:53 AM Paula Tyson wrote: Health / Immunization Form Request PCP: RODNEY PADILLA Type of Form Needed: Current medication list Date of Last Physical: 07/07/22 How Would You Like to Receive This: [facility] called and stated patient isthere now and they need an updated medication list Patient Informed, completion of this request can take 5-7 business days. documented in this encounter Plan of Treatment Upcoming Encounters Date Type Department Care Team (Late st Contact Info) Description 05/01/2024 11:20 AM EDT Appointment Mammography/[place] [address] Rodney Padilla MD [address] [place] [address] 05/01/2024 1:45 PM EDT Office [place] [address] Juanpablo Hernandez MD [facility] [place] [address] 05/23/2024 2:45 PM EST Clinical Support Family Medicine at [facility] [address] [place] [address] Julia Low, [facility] 01/30/2025 1:30 PM EDT Laboratory Appointment Lab at [facility] Hematology Oncology [address] [place] [address] 01/30/2025 3:[address] [place] [address] Arturo Cordero MD [facility] [place] [address] 01/30/2025 4:15 PM EDT Office Visit Hematology [place] [address] Arturo Cordero MD [facility] DR [place] [address] documented as of this encounter Visit Diagnoses Not on filedocumented in this encounter Care Teams District Sales Leader Relationship Specialty Start Date End Date Rodney Padilla MD [address] [place] [address] PCP - General 07/18/22 04/09/24 documented as of this encounter
--- OUTSIDE RECORDS SUMMARY | 2024-04-13 15:44 | XMS_ITS | Encounter Summary ---
[place] [address] Care Team Providers Care Swimming Pool Maintenance Name Role Phone Luis E Narayan MD Primary Care Provider [phone]- [phone] Reason for Referral * Diagnostic Test (Routine) - Closed Specialty Diagnoses / Procedures Referred By Gonzalez kumari Referred To Contact Radiology Diagnoses Dyspepsia Nausea without vomiting Procedures NM Gastric Emptying Scan Alejandra Pop APRN [address] [place] [address] [place] [address] Referral ID Status Reason Start Date Expiration Date V isits Requested Visits Authorized [id number] Closed Specialty Service Requested 06/17/2022 12/17/2023 1 1 Encounter Details Date Type Department Care Team (Late st Contact Info) Description 06/17/2022 Orders Only Gastroenterology [place] [address] Alejandra Pop APRN [address] [place] [address] Dyspepsia; Nausea without vomiting Social [...] 11:20 AM EDT Appointment Mammography/[place] [address] Rodney Padilla MD [address] [place] [place] [address] 05/01/2024 1:45 PM EDT Office Visit Ophthalmology [place] [address] Juanpablo Hernandez MD [facility] [place] [address] 05/23/2024 2:45 PM EST Clinical Support Family Medicine at [facility] [address] [place] [address] Julia Low [facility] 01/30/2025 1:30 PM EDT Laboratory Appointment Lab at [facility] Hematology Oncology [address] [place] [address] 01/30/2025 3:[address] [place] [address] Arturo Cordero MD [facility] DR [place] [address] 01/30/2025 4:15 PM EDT Office Visit Hematology and [place] [address] Arturo Codrero MD [facility] DR [place] [address] documented as of this encounter Results * [...] have questions please contact the health medicare compliance auditor that requested your imaging first. ? Electronically signed by: Brett Chapman MD, [facility] ([phone]), at 10/18/2022 3:12 PM Narrative 10/18/2022 3:12 [...] who have questions please contactthe health medicare compliance auditor that requested your imaging first. Alejandra Pop SENIOR DATABASE ADMINISTRATOR IMG NM ORDERABLE S documented in this encounter Visit Diagnoses Diagnosis Dyspepsia Dyspepsia and other specified disorders of function of stomach Nausea without vomiting Dyspepsia Dyspepsia and other specified disorders of function of stomach Nausea without vomiting documented in this encounter Care Teams Swimming Pool Maintenance Relationship Specialty Start Date End Date Luis E Narayan MD [facility] [address] [place] [address] PCP - General Family Medicine 01/20/22 07/17/22 documented as of this encounter
--- OUTSIDE RECORDS SUMMARY | 2024-04-13 15:44 | XMS_ITS | Encounter Summary ---
Author Organization [facility] Address [facility] [place] [address] Care Team Providers Care Paving Machine Operator Name Role Phone Luis E Narayan MD Primary Care Provider [phone]- [phone] Reason for Visit * Reason Onset Date Comments Medication Refill 06/19/2022 Encounter Details Date Type Department Care Team (Late st Contact Info) Description 06/19/2022 Refill Family Medicine at [facility] [address] [place] [place] [address] Luis E Narayan MD [facility] [address] [address] Mixed hyperlipidemia Social History Tobacco Use Types [...] 05/01/2024 11:20 AM EDT Appointment Mammography/[place] [address] Rodney Padilla MD [address] [place] [address] 05/01/2024 1:45 PM EDT Office [place] [address] Juanpablo Hernandez MD [facility] [place] [address] 05/23/2024 2:45 PM EST Clinical Support Family Medicine at [facility] [address] [place] [address] Julia Low [facility] 01/30/2025 1:30 PM EDT Laboratory Appointment Lab at [facility] [place] Oncology [address] [place] [address] 01/30/2025 3:[address] [place] [address] Arturo Cordero MD [facility] [place] [address] 01/30/2025 4:15 PM EDT Office Visit Hematology [place] [address] Arturo Cordero MD [facility] [place] [address] documented as of this encounter Visit Diagnoses Diagnosis Mixed hyperlipidemia documented in this encounter Care Teams Paving Machine Operator Relationship Specialty Start Date End Date Luis E Narayan MD [facility] [place] [address] PCP - General Family Medicine 01/20/22 07/17/22 documented as of this encounter
--- OUTSIDE RECORDS SUMMARY | 2024-04-13 15:44 | XMS_ITS | Encounter Summary ---
Author Organization [facility] Address [facility] [place] [address] Care Team Providers Care School Nurse Name Role Phone Daryn Garrett MD Primary Care Provider Reason for Visit * Reason Onset Date Comments Medication Refill 09/18/2022 Encounter Details Date Type Department Care Team (Late st Contact Info) Description 09/18/2022 Refill Family Medicine at [facility] [address] [place] [address] Tamera Khan APRN [facility] [address] [address] Social History Tobacco Use Types Packs/Day Years [...] 05/01/2024 11:20 AM EDT Appointment Mammography/[place] [address] Rodney Padilla MD [address] [place] [address] 05/01/2024 1:45 PM EDT Office [place] [address] Juanpablo Hernandez MD [facility] [place] [address] 05/23/2024 2:45 PM EST Clinical Support Family Medicine at [facility] [address] [place] [address] Julia Low [facility] 01/30/2025 1:30 PM EDT Laboratory Appointment Lab at [facility] Hematology Oncology [address] [place] [address] 01/30/2025 3:[address] [place] [address] Arturo Cordero MD [facility] [place] [address] 01/30/2025 4:15 PM EDT Office Visit Hematology [place] [address] Arturo Cordero MD [facility] [place] [address] documented as of this encounter Visit Diagnoses Not on filedocumented in this encounter Care Teams School Nurse Relationship Specialty Start Date End Date Daryn Garrett MD [facility] [address] [place] [address] PCP - General 04/10/24 documented as of this encounter
--- OUTSIDE RECORDS SUMMARY | 2024-04-13 15:45 | XMS_ITS | Encounter Summary ---
Author Organization [facility] Address [facility] [place] [address] Care Team Providers Care Tree Planter Name Role Phone Luis E Narayan MD Primary Care Provider +1- [phone] Reason for Visit * Reason Onset Date Comments Medication Refill 04/14/2022 Encounter Details Date Type Department Care Team (Late st Contact Info) Description 04/14/2022 Refill Family Medicine at [facility] [address] [place] [address] Cuate Solis PA [facility] DR LILI WALKER[place] [address] Social History Tobacco Use Types Packs/Day Years [...] 05/01/2024 11:20 AM EDT Appointment Mammography/[place] [address] Rodney Padilla MD [address] [place] [place] [address] 05/01/2024 1:45 PM EDT [place] [address] Juanpablo Hernandez MD [facility] [place] [address] 05/23/2024 2:45 PM EST Clinical Support Family Medicine at [facility] [address] [place] [address] Julia Low [facility] 01/30/2025 1:30 PM EDT Laboratory Appointment Lab at [facility] Hematology Oncology [address] [place] [address] 01/30/2025 3:[address] [place] [place] [address] Arturo Cordero MD [facility] DR HEMATOLOGY [place] [address] 01/30/2025 4:15 PM EDT Office Visit [place] [address] Arturo Cordero MD [facility] DR HEMATOLOGY [place] [address] documented as of this encounter Visit Diagnoses Not on filedocumented in this encounter Care Teams Tree Planter Relationship Specialty Start Date End Date Luis E Narayan MD [facility] [place] [address] PCP - General Family Medicine 01/20/22 07/17/22 documented as of this encounter
--- OUTSIDE RECORDS SUMMARY | 2024-04-13 15:45 | XMS_ITS | Encounter Summary ---
Author Organization [facility] [place] [address] Care Team Providers Care Petroleum Geologist Name Role Phone Luis E Narayan MD Primary Care Provider +1- [phone] Reason for Visit * Reason Onset Date Comments Appointment 04/19/2022 Encounter Details Date Type Department Care Team (Late st Contact Info) Description 04/19/2022 Telephone Internal Medicine at [facility] [address] [place] [address] Cara Thomas, RN Appointment Social History Tobacco [...] EDT Appointment Mammography/[place] [address] Rodney Padilla MD [address] [place] [address] 05/01/2024 1:45 PM EDT Office [place] [address] Juanpablo Hernandez MD [facility] [place] [address] 05/23/2024 2:45 PM [facility] Clinical Support Family Medicine at [facility] [address] [place] [address] Julia Low, [facility] 01/30/2025 1:30 PM EDT Laboratory Appointment Lab at [facility] Hematology Oncology [address] [place] [address] 01/30/2025 3:[address] [place] [address] Arturo Cordero MD [facility] DR HEMATOLOG[place] [address] 01/30/2025 4:15 PM EDT Office Visit Hematology [place] [address] Arturo Cordero MD [facility] DR HEMATOLOGY [place] [address] documented as of this encounter Visit Diagnoses Not on filedocumented in this encounter Care Teams Petroleum Geologist Relationship Specialty Start Date End Date Luis E Narayan MD [facility] DR LIL[address] W[place] [address] PCP - General Family Medicine 01/20/22 07/17/22 documented as of this encounter
--- OUTSIDE RECORDS SUMMARY | 2024-04-13 15:45 | XMS_ITS | Encounter Summary ---
Author Organization [facility] Address [facility] [place] [address] Care Team Providers Care Outside Sales Professional Name Role Phone Daryn Garrett MD Primary Care Provider Reason for Visit * Reason Onset Date Comments Medication Refill 04/14/2022 Encounter Details Date Type Department Care Team (Late st Contact Info) Description 04/14/2022 Refill Family Medicine at [facility] [address] [place] [address] Luis E Narayan MD [facility] DR LILI [place] [address] Social History Tobacco Use Types Packs/Day Years [...] 05/01/2024 11:20 AM EDT Appointment Mammography/[place] [address] Rodney Padilla MD [address] [place] [address] 05/01/2024 1:45 PM EDT Office Visit [place] [address] Juanpablo Hernandez MD [facility] [place] [address] 05/23/2024 2:45 PM EST Clinical Support Family Medicine at [facility] [address] [place] [address] Julia Low [facility] 01/30/2025 1:30 PM EDT Laboratory Appointment Lab at [facility] Hematology Oncology [address] [place] [address] 01/30/2025 3:[address] [place] [address] Arturo Cordero MD [facility] [place] [address] 01/30/2025 4:15 PM EDT Office Visit Hematology [place] [address] Arturo Cordero MD [facility] DR [place] [address] documented as of this encounter Visit Diagnoses Not on filedocumented in this encounter Care Teams Outside Sales Professional Relationship Specialty Start Date End Date Daryn Garrett MD [facility] DR LIL[place] [address] PCP - General 04/10/24 documented as of this encounter
--- OUTSIDE RECORDS SUMMARY | 2024-04-13 15:45 | XMS_ITS | Encounter Summary ---
Author Organization [facility] Address [facility] [place] [address] Care Team Providers Care Axle Bearing Polisher Name Role Phone Luis E Narayan MD Primary Care Provider +1- [phone] Reason for Visit * Reason Onset Date Comments Medication Refill 04/21/2022 Encounter Details Date Type Department Care Team (Late st Contact Info) Description 04/21/2022 Refill Family Medicine at [facility] [address] [place] [address] Suzanne Martinez, [facility] [address] LIL[address] WALKER[place] [address] Social History Tobacco Use Types Packs/Day Years [...] scheduled send to secretaries to schedule): 04/19/2022 [email or web address]/[email or web address] Next Encounter in This Dept: Visit date not found Date of Last Refill (for each medication): 04/12/2022 Medication category req. lab studies documented in this encounter Plan of Treatment Upcoming Encounters Date Type Department Care Team (Late st Contact Info) Description 05/01/2024 11:20 AM EDT Appointment Mammography/[place] [address] Rodney Padilla MD [address] [place] [address] 05/01/2024 1:45 PM EDT Office [place] [address] Juanpablo Hernandez MD [facility] [place] [address] 05/23/2024 2:45 PM EST Clinical Support Family Medicine at [facility] [address] [place] [address] Julia Low [facility] 01/30/2025 1:30 PM EDT Laboratory Appointment Lab at [facility] Hematology Oncology [address] [place] [address] 01/30/2025 3:[address] [place] [address] Arturo Cordero MD [facility] DR HEMATOLOGY [place] [address] 01/30/2025 4:15 PM EDT Office Visit Hematology [place] [address] Arturo Cordero MD [facility] DR HEMATOLOGY [place] [address] documented as of this encounter Visit Diagnoses Not on filedocumented in this encounter Care Teams Axle Bearing Polisher Relationship Specialty Start Date End Date Luis E Narayan MD [facility] DR LILI WALKER-[facility] [place] [address] PCP - General Family Medicine 01/20/22 07/17/22 documented as of this encounter
--- OUTSIDE RECORDS SUMMARY | 2024-04-13 15:45 | XMS_ITS | Encounter Summary ---
Author Organization [facility] [place] [address] Care Team Providers Care Dramatic Critic Name Role Phone Luis E Narayan MD Primary Care Provider +1- [phone] Reason for Visit * Reason Onset Date Comments Results 05/30/2022 Encounter Details Date Type Department Care Team (Late st Contact Info) Description 05/30/2022 Telephone Hematology [place] [address] Tito Matta V [facility] Hematology/[place] [address] Results Social History Tobacco Use Types Packs/Day [...] * Telephone Encounter - Tito Matta V, [facility] - 05/30/2022 3:27 PM EST This test result was discussed with the patient by phone. A copy of the test results have been scanned in the medical record and sent to [facility]. A summary of the results is provided below. Please beadvised that [place] law requires that all health care workers respect the confidentiality ofthis information and not pass it along to other health care providers, insurance companies, or individuals without the written permission of the patient. The Familial Cancer Program welcomes any questions about these matters. Our phone number is: [phone]. On 05/13/2022 [facility] was seen for genetic [...] CDH1, CDK4, CDKN1B, CDKN1C, CDKN2A (p14ARF), CDKN2A ([id number]), CEBPA, CHEK2, CTNNA1, DICER1, DIS3L2, EGFR, EPCAM (Chris tion/duplication testing only), FH, FLCN, GATA2, GPC3, GREM1 (Promoter region deletion/duplication testing only), HOXB13, HRAS, KIT, MAX, MEN1, MET, MITF, (c.952G>A,P.Itr936Jmj variant only), MLH1, MSH2, MSH3, MSH6, MUTYH, NBN, NF1, NF2, NTHL1, PALB2, PDGFRA, PHOX2B, PMS2, POLD1, POLE, POT1, ZMFTF8W, PTCH1, PTEN, RAD50, RAD51C, RAD51D, RB1, RECQL4, REST, RET, RUNX1, SDHA, SDHAF2, SDHB, SDHC, SDHD, SMAD4, SMARCA4, SMARCB1, SMARCE1, STK11, SUFU, TERC, TERT, BWIT627, TP53, TSC1, TSC2, VHL, WRN,and WT1. Interpretation: [...] and/or Pap smears as recommended by [facility] teacher of the sight impaired or primary care provider. Colon cancer screening ?? Routine colorectal cancer screening starting by age 45-50 is important for everyone, regardless of genetic predisposition. ?? Periodic colonoscopy screening as recommended by [facility]'s hat and cap parts cutter hand. Skin cancer screening ?? Skin cancer screening and sun protection are important for everyone, regardless of genetic predisposition. ?? Consideration of routine dermatologic/skin exams, as recommended by [facility]'s primary care provider or branch director. documented in this encounter Plan of Treatment Upcoming Encounters Date Type Department Care Team (Late st Contact Info) Description 05/01/2024 11:20 AM EDT Appointment Mammography/[place] [address] Rodney Padilla MD [address] [place] [address] 05/01/2024 1:45 PM EDT Office [place] [address] Juanpablo Hernandez MD [facility] [place] [address] 05/23/2024 2:45 PM EST Clinical Support Family Medicine at [facility] [address] [place] [address] Julia Low [facility] 01/30/2025 1:30 PM EDT Laboratory Appointment Lab at [facility] Hematology Oncology [address] [place] [address] 01/30/2025 3:[address] [place] [address] Arturo Cordero MD [facility] DR [place] [address] 01/30/2025 4:15 PM EDT Office Visit Hematology [place] [address] Arturo Cordero MD [facility] [place] [address] documented as of this encounter Visit Diagnoses Not on filedocumented in this encounter Care Teams Dramatic Critic Relationship Specialty Start Date End Date Luis E Narayan MD [facility] [address] [place] [address] PCP - General Family Medicine 01/20/22 07/17/22 documented as of this encounter
--- OUTSIDE RECORDS SUMMARY | 2024-04-13 15:45 | XMS_ITS | Encounter Summary ---
Author Organization [facility] [place] [address] Care Team Providers Care Phone Operator Name Role Phone Luis E Narayan MD Primary Care Provider +1- [phone] Encounter Details Date Type Department Care Team (Late st Contact Info) Description 05/07/2022 Telephone Hematology [place] [address] Dar Fernandez MD [facility] DR HEMATOLOGY/[place] [address] Social History Tobacco Use Types Packs/Day Years [...] scheduled for next week. Dar Fernandez MD supervisor gate services in Hematology-Oncology documented in this encounter Plan of Treatment Upcoming Encounters Date Type Department Care Team (Late st Contact Info) Description 05/01/2024 11:20 AM EDT Appointment Mammography/[place] [address] Rodney Padilla MD [address] [place] [address] 05/01/2024 1:45 PM EDT Office [place] [address] Juanpablo Hernandez MD [facility] [place] [address] 05/23/2024 2:45 PM EST Clinical Support Family Medicine at [facility] [address] [place] [address] Julia Low [facility] 01/30/2025 1:30 PM EDT Laboratory Appointment Lab at [facility] Hematology Oncology [address] [place] [address] 01/30/2025 3:[address] [place] [address] Arturo Cordero MD [facility] DR HEMATOLOGY [place] [address] 01/30/2025 4:15 PM EDT Office Visit Hematology [place] [address] Arturo Cordero MD [facility] DR HEMATOLOGY [place] [address] documented as of this encounter Visit Diagnoses Not on filedocumented in this encounter Care Teams Phone Operator Relationship Specialty Start Date End Date Luis E Narayan MD [facility] DR LILI AZEVEDO-[place] [address] PCP - General Family Medicine 01/20/22 07/17/22 documented as of this encounter
--- OUTSIDE RECORDS SUMMARY | 2024-04-13 15:45 | XMS_ITS | Encounter Summary ---
Author Organization [facility] [place] [address] Care Team Providers Care Necktie Centralizing Machine Operator Name Role Phone Luis E Narayan MD Primary Care Provider Encounter Details Date Type Department Care Team (Late st Contact Info) Description 03/21/2022 1:09 PM EDT - 03/21/2022 11:59 PM EDT Hospital En[place] [address] Leandra Black, [facility]NA[facility] DR [place] [address] Malignant melanoma of conjunctiva, left Discharge Disposition: [...] 1 each 12/10/2021 02/04/2023 FreeStyle Sanjana 2 [place] MiscIndications:diabetes mellitus 1 each by Other route [...] 06/16/2022 fluticasone propionate (Flonase) 50 mcg/actuation [place], Suspension 1 spray by Each Nare route [...] 05/01/2024 11:20 AM EDT Appointment Mammography/[place] [address] Rodney Padilla MD [address] [place] [place] [address] 05/01/2024 1:45 PM EDT Office [place] [address] Juanpablo Hernandez MD [facility] [place] [address] 05/23/2024 2:45 PM EST Clinical Support Family Medicine at [facility] [address] [place] [address] Julia Low [facility] 01/30/2025 1:30 PM EDT Laboratory Appointment Lab at [facility] Hematology Oncology [address] [place] [address] 01/30/2025 3:[address] [place] [address] Arturo Cordero MD [facility] DR [place] [address] 01/30/2025 4:15 PM EDT Office Visit Hematology [place] [address] Arturo Cordero MD [facility] DR [place] [address] documented as of this encounter Procedures Procedure [...] PM Electronically signed by: Roland Izaguirre MD, [facility] ([phone]), at 03/21/2022 1:56 PM Thank you for letting us participate in the care of this patient. If you are a health care provider and have any questions regarding this report, please contact the number above. For patients who have questions, please contact the health resident care spec that requested your imaging first. ? Roland Izaguirre, Staff Physician Electronically Signed Final Report ?? 03/21/2022 02:04 pm Narrative 03/21/2022 2:05 PM EDT Ultrasound Lymph Node ? (Signed Final 03/21/2022 02:04 pm) Report PATIENT INFO: ID #: ? [id number] ?: ??58 (61 yrs)(F) Name: ? PATIENCE MANJARREZ ? Visit Date: 03/21/2022 01:33 pm PERFORMED BY: Performed By: ? Stephany Pittman RDMS Attending: ?Dmitriy COLVIN, Roland Fung Resident: ? Rojelio COVLIN, Gia Davalos Referred By: ?LEANDRA BLACK Location: ? [facility] SERVICE(S) PROVIDED: USTN - Soft Tissue Neck or Head - [id number] ? [id number] INDICATIONS: History of left eye conjunctival melanoma s/p resection, [facility] imaging of left neck [place] --------- FINDINGS: --------- Title: ? Ultrasound Lymph Node Report Findings: ?Several visualized lymph nodes, largest measures ?1.6 cm left level 2. Procedure Note Roland Izaguirre MD - 03/21/2022 Ultrasound Lymph Node (Signed Final 03/21/2022 02:04 pm) Report PATIENT INFO: ID #: [id number] : 58 (61 yrs)(F) Name: PATIENCE MANJARREZ Visit Date: 03/21/2022 01:33 pm PERFORMED BY: Performed By: Stephany Pittman RDMS Attending: Dmitriy COLVIN, Roland Fung Resident: Gia Serrato MD Referred By: LEANDRA BLACK Location: [facility] SERVICE(S) PROVIDED: USTN - Soft Tissue Neck or Head - [id number] INDICATIONS: History of left eye conjunctival melanoma [...] PM Electronically signed by: Roland Izaguirre MD, [facility] ([phone]), at 03/21/2022 1:56 PM Thank you for letting us participate in the care of this patient. If you are a health care provider and have any questions regarding this report, please contact the number above. For patients who have questions, please contact the health resident care spec that requested your imaging first. Roland Izaguirre, Staff Physician Electronically Signed Final Report 03/21/2022 02:04 pm Leandra Black APRN IMG US GEN ORDERAB LES documented in this encounter Visit Diagnoses Diagnosis Malignant melanoma of conjunctiva, left documented in this encounter Care Teams Necktie Centralizing Machine Operator Relationship Specialty Start Date End Date Luis E Narayan MD [facility] [address] [place] [address] PCP - General Family Medicine 01/20/22 07/17/22 documented as of this encounter
--- OUTSIDE RECORDS SUMMARY | 2024-04-13 15:45 | XMS_ITS | Encounter Summary ---
Author Organization [facility] Address [facility] [place] [address] Care Team Providers Care Relocation Associate Name Role Phone Daryn Garrett MD Primary Care Provider Reason for Visit * Reason Onset Date Comments Medication Refill 03/25/2022 Encounter Details Date Type Department Care Team (Late st Contact Info) Description 03/25/2022 Refill Family Medicine at [facility] [address] [place] [address] Cuate Solis PA [facility] DR LILI WALKER-[place] [address] Social History Tobacco Use Types Packs/Day Years [...] AM EDT Appointment Mammography/[place] [address] Rodney Padilla MD [address] [place] [address] 05/01/2024 1:45 PM EDT Office [place] [address] Juanpablo Hernandez MD [facility] [place] [address] 05/23/2024 2:45 PM EST Clinical Support Family Medicine at [facility] [address] [place] [address] Julia Low [facility] 01/30/2025 1:30 PM EDT Laboratory Appointment Lab at [facility] Hematology Oncology [address] [place] [address] 01/30/2025 3:[address] [place] [address] Arturo Cordero MD [facility] HEMATOLOGY [place] [address] 01/30/2025 4:15 PM EDT Office Visit Hematology [place] [address] Arturo Cordero MD [facility] DR HEMATOLOGY [place] [address] documented as of this encounter Visit Diagnoses Not on filedocumented in this encounter Care Teams Relocation Associate Relationship Specialty Start Date End Date Daryn Garrett MD [facility] DR LILI WALKER - [place] [address] PCP - General 04/10/24 documented as of this encounter
--- OUTSIDE RECORDS SUMMARY | 2024-04-13 15:45 | XMS_ITS | Encounter Summary ---
Author Organization [facility] Address [facility] [place] [address] Care Team Providers Care Ecommerce Marketing Specialist Name Role Phone Luis E Narayan MD Primary Care Provider +1- [phone] Reason for Visit * Reason Onset Date Comments Medication Refill 03/25/2022 Encounter Details Date Type Department Care Team (Late st Contact Info) Description 03/25/2022 Refill Family Medicine at [facility] [address] [place] [address] Cuate Solis PA [facility] [address] LIL[address] [place] [address] Essential hypertension Social History Tobacco Use Types [...] 05/01/2024 11:20 AM EDT Appointment Mammography[place] [address] Rodney Padilla MD [address] [place] [address] 05/01/2024 1:45 PM EDT Office [place] [address] Juanpablo Hernandez MD [facility] [place] [place] [address] 05/23/2024 2:45 PM EST Clinical Support [facility] at [facility] [address] [place] [address] Julia Low [facility] 01/30/2025 1:30 PM EDT Laboratory Appointment Lab at [facility] Hematology Oncology [address] [place] [address] 01/30/2025 3:[address] [place] [address] Arturo Cordero MD [facility] [place] [address] 01/30/2025 4:15 PM EDT Office Visit Hematology [place] [address] Arturo Cordero MD [facility] [place] [address] documented as of this encounter Visit Diagnoses Diagnosis Essential hypertension Unspecified essential hypertension documented in this encounter Care Teams Ecommerce Marketing Specialist Relationship Specialty Start Date End Date Luis E Narayan MD [facility] [address] [place] [address] PCP - General Family Medicine 01/20/22 07/17/22 documented as of this encounter
--- OUTSIDE RECORDS SUMMARY | 2024-04-13 15:45 | XMS_ITS | Encounter Summary ---
Author Organization [facility] [place] [address] Care Team Providers Care Splicer Operator Name Role Phone Luis E Narayan MD Primary Care Provider [phone] Reason for Visit * Diagnostic Test (Routine) - Closed Specialty Diagnoses / Procedures Referred By Gonzalez kumari Referred To Contact Gastroenterology Diagnoses Bloating Dyspepsia HBT - glucose - bloating Procedures Breath Hydrogen Test HBT - glucose - bloating Alejandra Pop, END PACKER [address] [place] [address] [facility] Gastro [address] [place] [address] Referral ID Status Reason Start Date Expiration Date V isits Requested Visits Authorized [id number] Closed Consult, Test & Treat 03/01/2022 03/01/2023 1 1 Encounter Details Date Type Department Care Team (Late st Contact Info) Description 05/13/2022 10:00 AM EDT Procedure [place] [address] Bloating; Dyspepsia Social History Tobacco Use Types [...] Breath Testing in Gastrointestinal Disorders: The [place] Consensus (Am J Gastroenterol 2017; 112(5):775-84. Apositive breath test is defined as a rise in hydrogen production >20 ppm compared to baseline within 90 minutes. Methane-positive is defined by at least 10 ppm production of methane. Signed, Alejandra Pop APRN Gastroenterology [place] [address] P: [phone] F: [phone] Copy: Alejandra Narayan MD documented in this encounter Plan of Treatment Upcoming Encounters Date Type Department Care Team (Late st Contact Info) Description 05/01/2024 11:20 AM EDT Appointment Mammography/[place] [address] Rodney Padilla MD [place] [address] 05/01/2024 1:45 PM EDT Office [place] [phone] Juanpablo Hernandez MD [facility] [place] [address] 05/23/2024 2:45 PM EST Clinical Support Family Medicine at [place] [address] [place] [address] Julia Low RPH 01/30/2025 1:30 PM EDT Laboratory Appointment Lab at [facility] [place]ology Oncology [address] [place] [address] 01/30/2025 3:[address] [place] [address] Arturo Cordero MD [facility] [address] [place] [address] 01/30/2025 4:15 PM EDT Office Visit Hematology [place] [address] Arturo Cordero MD [facility] [place] [address] documented as of this encounter Visit Diagnoses Diagnosis Bloating Flatulence, eructation, and gas pain Dyspepsia Dyspepsia and other specified disorders of function of stomach documented in this encounter Care Teams Splicer Operator Relationship Specialty Start Date End Date Luis E Narayan MD [facility] [address] [place] [address] PCP - General Family Medicine 01/20/22 07/17/22 documented as of this encounter
--- OUTSIDE RECORDS SUMMARY | 2024-04-13 15:45 | XMS_ITS | Encounter Summary ---
Author Organization [facility] Address [facility] [place] [address] Care Team Providers Care Air Pollution Compliance Inspector Name Role Phone Luis E Narayan MD Primary Care Provider [phone] Encounter Details Date Type Department Care Team (Late st Contact Info) Description 05/13/2022 Orders Only Hematology [place] [address] Tito Matta V, [facility] Hematology/[place] [address] Ocular melanoma, left; Renal cell cancer, left [...] 05/01/2024 11:20 AM EDT Appointment Mammography/[place] [address] Rodney Padilla MD [address] [place] [address] 05/01/2024 1:45 PM EDT Office [place] [address] Juanpablo Hernandez MD [facility] [place] [address] 05/23/2024 2:45 PM EST Clinical Support Family Medicine at [facility] [address] [place] [address] Julia Low RPH 01/30/2025 1:30 PM EDT Laboratory Appointment Lab at [facility] [place]ology Oncology [address] [place] [address] 01/30/2025 3:[address] [place] [address] Arturo Cordero MD [facility] DR HEMATOLOGY [place] [address] 01/30/2025 4:15 PM EDT Office Visit Hematology [place] [address] Arturo Cordero MD [facility] DR HEMATOLOGY [place] [address] documented as of this encounter Results * Research Venipuncture (05/13/2022 1:05 PM EDT) [facility] Research Venipuncture Drawn [facility] Comment: Collection date/time has been modified to: 13:05:00. ??Previous collection date/time: 13:08:00. Corrected from Drawn [NA] on 05/13/22 13:36:44 EDT by Cyndi Dowd Blood 05/13/2022 1:05 PM EDT 05/13/2022 1:25 PM EDT Narrative Resulting Agency Comment Spec In Lab Dar Fernandez MD CHEMISTRY ORDERABLES [facility] [place] [address] documented in this encounter Visit Diagnoses Diagnosis Ocular melanoma, left Renal cell cancer, left documented in this encounter Care Teams Air Pollution Compliance Inspector Relationship Specialty Start Date End Date Luis E Narayan MD [facility] [address] [address] PCP - General Family Medicine 01/20/22 07/17/22 documented as of this encounter
--- OUTSIDE RECORDS SUMMARY | 2024-04-13 15:45 | XMS_ITS | Encounter Summary ---
Author Organization [facility] [address] [facility] [address] Care Team Providers Care Knife Setter Grinder Machine Name Role Phone Luis E Narayan MD Primary Care Provider [phone] Encounter Details Date Type Department Care Team (Late st Contact Info) Description 03/25/2022 Telephone Hematology [place] [address] Dar Fernandez MD [facility] DR HEMATOLOGY/[place] [address] Social History Tobacco Use Types Packs/Day Years [...] scheduled for next week. Dar Fernandez MD cryptography teacher in Hematology-Oncology documented in this encounter Plan of Treatment Upcoming Encounters Date Type Department Care Team (Late st Contact Info) Description 05/01/2024 11:20 AM EDT Appointment Mammography/[place] [address] Rodney Padilla MD [address] [place] [place] [address] 05/01/2024 1:45 PM EDT Office [place] [address] Juanpablo Hernandez MD [facility] [place] [address] 05/23/2024 2:45 PM EST Clinical Support Family Medicine at [facility] [address] [address] Julia Low [facility] 01/30/2025 1:30 PM EDT Laboratory Appointment Lab at [facility] [place]ematology Oncology [address] [place] [address] 01/30/2025 3:[address] [place] [address] Arturo Cordero MD [facility] DR [place] [address] 01/30/2025 4:15 PM EDT Office Visit Hematology [place] [address] Arturo Cordero MD [facility] DR [place] [address] documented as of this encounter Visit Diagnoses Not on filedocumented in this encounter Care Teams Knife Setter Grinder Machine Relationship Specialty Start Date End Date Luis E Narayan MD [facility] DR L[address] [place] [address] PCP - General Family Medicine 01/20/22 07/17/22 documented as of this encounter
--- OUTSIDE RECORDS SUMMARY | 2024-04-13 15:45 | XMS_ITS | Encounter Summary ---
[place] [address] Care Team Providers Care Dental Biller Name Role Phone Luis E Narayan MD Primary Care Provider [phone]- [phone] Reason for Visit * Reason Comments Genetic Evaluation * Consultation (Routine) - Closed Specialty Diagnoses / Procedures Referred By Gonzalez kumari Referred To Contact Hematology and Oncology Diagnoses History of malignant melanoma of eye Alonso Young MD [facility] DR LILI [place] [address] [facility] Hem Onc [address] [place] [address] Referral ID Status Reason Start Date Expiration Date V isits Requested Visits Authorized [id number] Closed Consult, Test & Treat 02/14/2022 02/14/2023 1 1 Encounter Details Date Type Department Care Team (Late st Contact Info) Description 05/13/2022 12:00 PM EDT Office Visit Hematology [place] [address] Tito Matta V, [facility] Hematology/[place] [address] Malignant melanoma of conjunctiva, left; [...] who was initially diagnosed with kidney cancer [id number] and 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 Paternal ethnic background is [place]. There is no known Ashkenazi Hinduism ancestry. Genetic risk assessment Based on personal [...] as well as other findings such as TRANSPORTATION SOLUTIONS MANAGER and ocular hemangioblastomas, paragangliomas/pheochromocytomas, pancreatic neuroendocrine tumors, [...] gene alteration. Alize opted for testing with [employer]'s Renal/Urinary Tract Cancers Panel, a next generation sequencing panel that simultaneously analyzes 25 genes, including BAP1 and VHL, that contribute to increased risk for cancer. Testing will reflex to [employer]'s Multi-Cancer Panel, an 84 gene panel (including the genes on the Renal/Urinary Tract Cancers Panel). Alize was consented. Her blood sample was drawn and sent to [facility] [facility] [employer]. We reviewed [employer]'s billing policy. Alize will be notified by text and/or email regarding her estimated out of pocket cost for testing once [facility] completes their benefits investigation. At thattime, if Alize is concerned about the estimated test cost she will have the option to contact [employer] directly and either apply for [employer]'s patient assistance program to try and reduce cost of testing based on income information, cancel testing, or switch to a self-pay option of $250. If Alize does not respond to [employer], testing will be billed to her insurance [...] 05/01/2024 11:20 AM EDT Appointment Mammography/[place] [address] Rodney Padilla MD [address] [place] [address] 05/01/2024 1:45 PM EDT Office [place] [address] Juanpablo Hernandez MD [facility] [place] [address] 05/23/2024 2:45 PM EST Clinical Support [facility] Medicine [facility] [address] [place] [address] Julia Low, [facility] 01/30/2025 1:30 PM EDT Laboratory Appointment Lab at [facility] Hematology Oncology [address] [place] [address] 01/30/2025 3:[address] [place] [address] Arturo Cordero MD [facility] DR HEMATOLOGY [place] [address] 01/30/2025 4:15 PM EDT Office Visit Hematology [place] [address] Arturo Cordero MD [facility] HEMATOLOGY [place] [address] Scheduled Referrals Name Type Priority Associated Diagnoses Orde r Schedule Referral to Genetics Outpatient Referral Routine History of malignant melanoma of eye Ordered: 02/14/2022 documented as of this encounter Visit Diagnoses Diagnosis Malignant melanoma of conjunctiva, left Malignant neoplasm of left kidney Family history of kidney cancer Family history of malignant neoplasm of kidney documented in this encounter Care Teams Dental Biller Relationship Specialty Start Date End Date Luis E Narayan MD [facility] DR LIL[address] AWLKER[place] [address] PCP - General Family Medicine 01/20/22 07/17/22 documented as of this encounter
--- OUTSIDE RECORDS SUMMARY | 2024-04-13 15:45 | XMS_ITS | Encounter Summary ---
Author Organization [facility] Address [facility] [place] [address] Care Team Providers Care Tube Pusher Name Role Phone Luis E Narayan MD Primary Care Provider [phone]- [phone] Reason for Visit * Reason Onset Date Comments Other 04/14/2022 Encounter Details Date Type Department Care Team (Late st Contact Info) Description 04/14/2022 Telephone Family Medicine at [facility] [address] [place] [address] Luis E Narayan MD [facility] [address] [place] [address] Other Social History Tobacco Use Types Packs/Day [...] Identified by name and . Seen in [facility] ED last night and treated for [...] Fax request for medical records sent to [facility] * Telephone Encounter - Angi King - 04/14/2022 4:42 PM EDT Please call patient to discuss Emergency Room Follow Up Reason for the Emergency Room visit: Lower left abdominal pain Name of the facility where patient was seen: [facility]. [address], [address] [place], [place] [address]. Symptomatic now: yes Other information: Patient called [...] leave a message: y Okay to send [facility] message: y Nurse contacted via: Message: X Call: n/a Pager: n/a documented in this encounter Plan of Treatment Upcoming Encounters Date Type Department Care Team (Late st Contact Info) Description 05/01/2024 11:20 AM EDT Appointment Mammography/[place] [address] Rodney Padilla MD [address] [place] [address] 05/01/2024 1:45 PM EDT Office [place] [address] Juanpablo Hernandez MD [facility] [place] [place] [address] 05/23/2024 2:45 PM EST Clinical Support Family Medicine at [facility] [address] [place] [address] Julia Low [facility] 01/30/2025 1:30 PM EDT Laboratory Appointment Lab at [facility] Hematology Oncology [address] [place] [address] 01/30/2025 3:[address] [place] [address] Arturo Cordero MD [facility] [place] [address] 01/30/2025 4:15 PM EDT Office Visit Hematology [place] [address] Arturo Cordero MD [facility] [place] [address] documented as of this encounter Visit Diagnoses Not on filedocumented in this encounter Care Teams Tube Pusher Relationship Specialty Start Date End Date Luis E Narayan MD [facility] [address] [place] [address] PCP - General Family Medicine 01/20/22 07/17/22 documented as of this encounter
--- OUTSIDE RECORDS SUMMARY | 2024-04-13 15:45 | XMS_ITS | Encounter Summary ---
Author Organization [facility] Address [facility] [place] [address] Care Team Providers Care Rubber Mill Tender Name Role Phone Luis E Narayan MD Primary Care Provider [phone]- [phone] Reason for Visit * Reason Onset Date Comments Medication Refill 05/17/2022 Encounter Details Date Type Department Care Team (Late st Contact Info) Description 05/17/2022 Refill Family Medicine at [facility] [address] [place] [address] Terry Love, DIESEL TRUCK MECHANIC [facility] [address] LIL[address] WALKER-FAMILY MEDICINE [place], [place] [id number] Social History Tobacco Use Types Packs/Day Years [...] AM EDT Appointment Mammography/[place] [address] Rodney Padilla MD [address] [place] [address] 05/01/2024 1:45 PM EDT Office [place] [address] Juanpablo Hernandez MD [facility] [place] [address] 05/23/2024 2:45 PM EST Clinical Support Family Medicine at [facility] [address] [place] [address] Julia Low, [facility] 01/30/2025 1:30 PM EDT Laboratory Appointment Lab at [facility] Hematology Oncology [address] [place] [address] 01/30/2025 3:[address] [place] [address] Arturo Cordero MD [facility] [place] [address] 01/30/2025 4:15 PM EDT Office Visit Hematology [place] [address] Arturo Cordero MD [facility] [place] [address] documented as of this encounter Visit Diagnoses Not on filedocumented in this encounter Care Teams Rubber Mill Tender Relationship Specialty Start Date End Date Luis E Narayan MD [facility] [address] [place] [address] PCP - General Family Medicine 01/20/22 07/17/22 documented as of this encounter
--- OUTSIDE RECORDS SUMMARY | 2024-04-13 15:45 | XMS_ITS | Encounter Summary ---
Author Organization [facility] Address [facility] [place] [address] Care Team Providers Care Eligibility Examiner Name Role Phone Luis E Narayan MD Primary Care Provider [phone]- [phone] Reason for Visit * Reason Onset Date Comments Medication Refill 04/21/2022 Encounter Details Date Type Department Care Team (Late st Contact Info) Description 04/21/2022 Refill Family Medicine at [facility] [address] [place] [address] Earl Valdez MD [facility] DR LILI [place] [address] Social History Tobacco Use Types Packs/Day Years [...] 05/01/2024 11:20 AM EDT Appointment Mammography[place] [address] Rodney Padilla MD [address] [place] [place] [address] 05/01/2024 1:45 PM EDT Office [place] [address] Juanpablo Hernandez MD [facility] [place] [address] 05/23/2024 2:45 PM EST Clinical Support Family Medicine at [facility] [address] [place] [address] Julia Low [facility] 01/30/2025 1:30 PM EDT Laboratory Appointment Lab [place] [facility] [place] On[place] [address] [place] [address] 01/30/2025 3:[address] [place] [address] Arturo Cordero MD [facility] DR [place]AT[place] [address] 01/30/2025 4:15 PM EDT Office Visit [place]ematology [place] [address] Arturo Cordero MD [facility] DR [place] [address] documented as of this encounter Visit Diagnoses Not on filedocumented in this encounter Care Teams Eligibility Examiner Relationship Specialty Start Date End Date Luis E Narayan MD [facility] DR LILI WALKER-[facility] [place] [address] PCP - General Family Medicine 01/20/22 07/17/22 documented as of this encounter
--- OUTSIDE RECORDS SUMMARY | 2024-04-13 15:45 | XMS_ITS | Encounter Summary ---
Author Organization [facility] [place] [address] Care Team Providers Care Top Executive Name Role Phone Luis E Narayan MD Primary Care Provider [phone]- [phone] Encounter Details Date Type Department Care Team (Latest Contact Info) Description 03/07/2022 2:01 PM EDT - 03/07/2022 11:59 PM EDT Hospital [place] [address] Bloating; Dyspepsia Discharge Disposition: Home Social History [...] each 11 12/10/2021 02/04/2023 FreeStyle Sanjana 2 [place] MiscIndications:diabetes mellitus 1 each by Other route daily. Indications: diabetes mellitus 1 each 10/26/2021 01/23/2023 FreeStyle Sanjana 2 Sensor KitIndications:diabetes mellitus 1 each by Other route every 14 days. Indications: diabetes mellitus 2 kit 10/26/2021 01/23/2023 FreeStyle Lancets 28 gauge MiscIndications:diabetes mellitus 1 each by Other route 3 times daily. Indications: diabetes mellitus 100 each 11 10/11/2021 06/16/2022 fluticasone propionate (Flonase) 50 mcg/actuation Rosine, Suspension 1 spray by Each Nare route [...] 05/01/2024 11:20 AM EDT Appointment Mammography/[place] [address] Rodney Padilla MD [address] [place] [address] 05/01/2024 1:45 PM EDT Office [place] [address] Juanpablo Hernandez MD [facility] [place] [address] 05/23/2024 2:45 PM EST Clinical Support Family Medicine at [facility] [address] [place] [address] Julia Low RPH 01/30/2025 1:30 PM EDT Laboratory Appointment Lab at [facility] Hematology Oncology [address] [place] [address] 01/30/2025 3:[address] [place] [address] Arturo Cordero MD [facility] DR HEMATOLOGY [place] [address] 01/30/2025 4:15 PM EDT Office Visit Hematology [place] [address] Arturo Cordero MD [facility] DR HEMATOLOGY [place] [address] documented as of this encounter Procedures Procedure [...] 1 EIA Negative for Shiga Toxin 2 [facility] Stool 03/07/2022 11:2 0 AM EDT 03/07/2022 2:22 PM EDT Narrative Resulting Agency Comment Spec In Lab Alejandra Pop IT ANALYST MICROBIOLOGY - G ENERAL ORDERABLES [facility] [place] [address] * Campylobacter Antigen (03/07/2022 11:20 AM EDT) Campylobacter Ag Immunoassay Negative for Campylobacter Antigen [facility] Stool 03/07/2022 11:2 0 AM EDT 03/07/2022 2:22 PM EDT Narrative Resulting Agency Comment Spec In Lab Alejandra Pop IT ANALYST MICROBIOLOGY - G ENERAL ORDERABLES Performing Organization Address City/[facility] Co de Phone Number [facility] [place] [address] * Stool culture (03/07/2022 11:20 AM EDT) Stool Culture No enteric pathogens isolated [facility] Stool 03/07/2022 11:2 0 AM EDT 03/07/2022 2:22 PM EDT Narrative Resulting Agency Comment Spec In Lab Alejandra Pop APRN MICROBIOLOGY - G ENERAL ORDERABLES Performing Organization Address [facility] de Phone Number [facility] [place] [address] documented in this encounter Visit Diagnoses Diagnosis Bloating Flatulence, eructation, and gas pain Dyspepsia Dyspepsia and other specified disorders of function of stomach documented in this encounter Care Teams Top Executive Relationship Specialty Start Date End Date Luis E Narayan MD [facility] DR LIL[address] WALKER-FAMILY MEDICINE [place] [id number] PCP - General Family Medicine 01/20/22 07/17/22 documented as of this encounter
--- OUTSIDE RECORDS SUMMARY | 2024-04-13 15:45 | XMS_ITS | Encounter Summary ---
Author Organization [facility] Address [facility] [place] [address] Care Team Providers Care Secondary Social Studies Teacher Name Role Phone Luis E Narayan MD Primary Care Provider +1- [phone] Encounter Details Date Type Department Care Team (Late st Contact Info) Description 03/21/2022 Telephone Hematology [place] [address] Leandra Lopes, COLD PRESS OPERATOR [facility] HEMATOLOGY [place] [address] Social History Tobacco Use Types Packs/Day Years [...] Miscellaneous Notes * Telephone Encounter - Leandra Lopes APRN - 03/21/2022 2:20 PM EDT I called [facility] and let her know that her US shows no evidence of disease recurrence. We will plan on seeing Alize in [address] scan. The pt was in agreement with the plan outlined above and was instructed to call with any new symptoms or concerns. Leandra Lopes DNP, COLD PRESS OPERATOR documented in this encounter Plan of Treatment Upcoming Encounters Date Type Department Care Team (Late st Contact Info) Description 05/01/2024 11:20 AM EDT Appointment Mammography/[place] [address] Rodney Padilla MD [address] [facility] [place], [place] [id number] 05/01/2024 1:45 PM EDT Office [place] [address] Juanpablo Hernandez MD [facility] [place] [address] 05/23/2024 2:45 PM EST Clinical Support Family Medicine at [facility] [address] [place] [address] Julia Low, [facility] 01/30/2025 1:30 PM EDT Laboratory Appointment Lab at [facility] [place] [address] [place] [address] 01/30/2025 3:[address] [place] [address] Arturo Cordero MD [facility] HEMATOLOGY [place] [address] 01/30/2025 4:15 PM EDT Office Visit Hematology [place] [address] Arturo Cordero MD [facility] DR HEMATOLOGY [place] [address] documented as of this encounter Visit Diagnoses Not on filedocumented in this encounter Care Teams Secondary Social Studies Teacher Relationship Specialty Start Date End Date Luis E Narayan MD [facility] DR [address] AZEVED[place] [address] PCP - General Family Medicine 01/20/22 07/17/22 documented as of this encounter
--- OUTSIDE RECORDS SUMMARY | 2024-04-13 15:45 | XMS_ITS | Encounter Summary ---
Author Organization [facility]ly [facility] Address [facility] [place] [address] Care Team Providers Care Yard Supervisor Name Role Phone Luis E Narayan MD Primary Care Provider +1- [phone] Encounter Details Date Type Department Care Team (Late st Contact Info) Description 04/07/2022 Telephone Family Medicine at [facility] [address] [place] [address] Earl Valdez MD [facility] [address] [place] [address] Social History Tobacco Use Types Packs/Day Years [...] 05/01/2024 11:20 AM EDT Appointment Mammography/[place] [address] Rodney Padilla MD [address] [place] [address] 05/01/2024 1:45 PM EDT Office [place] [address] [facility] [place] [address] 05/23/2024 2:45 PM EST Clinical Support Family Medicine at [facility] [address] [place] [address] Julia Low [facility] 01/30/2025 1:30 PM EDT Laboratory Appointment Lab at [facility] [place] [address] [place] [address] 01/30/2025 3:[address] [place] [address] [facility] [place] [address] 01/30/2025 4:15 PM EDT Office Visit Hematology [place] [address] [facility] [place] [address] documented as of this encounter Visit Diagnoses Not on filedocumented in this encounter Care Teams Yard Supervisor Relationship Specialty Start Date End Date Luis E Narayan MD [facility] [address] [place] [address] PCP - General Family Medicine 01/20/22 07/17/22 documented as of this encounter
--- OUTSIDE RECORDS SUMMARY | 2024-04-13 15:45 | XMS_ITS | Encounter Summary ---
Author Organization Formerly [facility] Address [facility] [place] [address] Care Team Providers Care Estate Tax Examiner Name Role Phone Luis E Narayan MD Primary Care Provider +1- [phone] Reason for Visit * Reason Onset Date Comments Other 04/07/2022 Order Issues Encounter Details Date Type Department Care Team (Late st Contact Info) Description 04/07/2022 Telephone Family Medicine at [facility] [address] [place] [address] Luis E Narayan MD [facility] [address] [place] [address] Other (Order Issues) Social History Tobacco Use [...] EDT Order signed by COS. Faxed to [facility] along with associated documents * Telephone Encounter - Alejandra Posadas RN - 04/08/2022 6:52 AM EDT Prepped/pended DME that will print for faxing. Need Physician or ESTHELA signature. Needs to be faxed to [facility] along with demographics and office notes from 04/05/22. * Telephone Encounter - Luis E Narayan MD - 04/07/2022 8:34 PM EDT Hi S3 RN team - Can you see what needs to be ordered, pend, and sent to COS or covering provider? I will not be in eDH to sign. Thanks rosmery * Telephone Encounter - Dixon Billings - 04/07/2022 10:07 AM EDT Message: Ani from [facility] calling in regards to orders received for Nebulizer. She statesshe just needs provider to also send in prescription for supplies along with it. Please call with questions/concerns Ask caller their first and last name and relationship to the patient: Ani [facility] Best time to call back: Any Ok to leave a message: Yes Ok to send my- message: x Offered Appointment: x MA/Nurse/Refuse Collector Supervisor contacted via: Message: Yes Call: x Pager: x documented in this encounter Plan of Treatment Upcoming Encounters Date Type Department Care Team (Late st Contact Info) Description 05/01/2024 11:20 AM EDT Appointment Mammography/[place] [address] Rodney Padilla MD [address] [place] [address] 05/01/2024 1:45 PM EDT Office [place] [address] Juanpablo Hernandez MD [facility] [place] [address] 05/23/2024 2:45 PM EST Clinical Support Family Medicine at [facility] [address] [place] [address] Julia Low [facility] 01/30/2025 1:30 PM EDT Laboratory Appointment Lab at [facility] Hematology Oncology [address] [place] [address] 01/30/2025 3:[address] [place] [address] Arturo Cordero MD [facility] DR [place] [address] 01/30/2025 4:15 PM EDT Office Visit Hematology [place] [address] Arturo Cordero MD [facility] DR [place] [address] documented as of this encounter Visit Diagnoses Diagnosis Simple chronic bronchitis documented in this encounter Care Teams Estate Tax Examiner Relationship Specialty Start Date End Date Luis E Narayan MD [facility] [address] [place] [address] PCP - General Family Medicine 01/20/22 07/17/22 documented as of this encounter
--- OUTSIDE RECORDS SUMMARY | 2024-04-13 15:45 | XMS_ITS | Encounter Summary ---
Author Organization [facility] [place] [address] Care Team Providers Care Field Technical Assistant Name Role Phone Luis E Narayan MD Primary Care Provider +1- [phone] Encounter Details Date Type Department Care Team (Late st Contact Info) Description 05/13/2022 Orders [place] [address] Alejandra Pop, CELL COVERER [address] [place] [address] Social History Tobacco Use Types Packs/Day Years [...] AM EDT Appointment Mammography/[place] [address] Rodney Padilla MD [address] [place] [address] 05/01/2024 1:45 PM EDT Office [place] [address] Juanpablo Hernandez MD [facility] [place] [address] 05/23/2024 2:45 PM EST Clinical Support Family Medicine at [facility] [address] [place] [address] Julia Low [facility] 01/30/2025 1:30 PM EDT Laboratory Appointment Lab at [facility] Hematology Oncology [address] [place] [address] 01/30/2025 3:[address] [place] [address] Arturo Cordero MD [facility] [place] [address] 01/30/2025 4:15 PM EDT Office Visit Hematology [place] [address] Arturo Cordero MD [facility] [place] [address] documented as of this encounter Visit Diagnoses Not on filedocumented in this encounter Care Teams Field Technical Assistant Relationship Specialty Start Date End Date Luis E Narayan MD [facility] [address] [place] [address] PCP - General Family Medicine 01/20/22 07/17/22 documented as of this encounter
--- OUTSIDE RECORDS SUMMARY | 2024-04-13 15:45 | XMS_ITS | Encounter Summary ---
Author Organization [facility] Address [facility] [place] [address] Care Team Providers Care Artificial Pearl Maker Name Role Phone Luis E Narayan MD Primary Care Provider +1- [phone] Reason for Visit * Reason Onset Date Comments Medication Refill 04/26/2022 Encounter Details Date Type Department Care Team (Late st Contact Info) Description 04/26/2022 Refill Family Medicine at [facility] [address] [place] [address] Luis E Narayan MD [facility] [address] [place] [address] Social History Tobacco Use Types Packs/Day Years [...] 05/01/2024 11:20 AM EDT Appointment Mammography/[place] [address] Rodney Padilla MD [address] [place] [address] 05/01/2024 1:45 PM EDT Office Visit [place] [address] Juanpablo Hernandez MD [facility] [place] [address] 05/23/2024 2:45 PM EST Clinical Support Family Medicine at [facility] [address] [place] [address] Julia Low, [facility] 01/30/2025 1:30 PM EDT Laboratory Appointment Lab at [facility] Hematology Oncology [address] [place] [address] 01/30/2025 3:[address] [place] [address] Arturo Cordero MD [facility] DR [place] [address] 01/30/2025 4:15 PM EDT Office Visit Hematology [place] [address] Arturo Cordero MD [facility] DR [place] [address] documented as of this encounter Visit Diagnoses Not on filedocumented in this encounter Care Teams Artificial Pearl Maker Relationship Specialty Start Date End Date Luis E Narayan MD [facility] DR [address] [place] [address] PCP - General Family Medicine 01/20/22 07/17/22 documented as of this encounter
--- OUTSIDE RECORDS SUMMARY | 2024-04-13 15:45 | XMS_ITS | Encounter Summary ---
Author Organization [facility] [place] [address] Care Team Providers Care Supervisor Bleach Plant Name Role Phone Lius E Narayan MD Primary Care Provider +1- [phone] Reason for Referral * Psychiatric (Routine) - Closed Specialty Diagnoses / Procedures Referred By Gonzalez kumari Referred To Contact Psychiatry Diagnoses Chronic insomnia Asha Morataya MD [facility] [place] [address] Sadie Weinberg, PhD [facility] [place] [address] Referral ID Status Reason Start Date Expiration Date V isits Requested Visits Authorized [id number] Closed Specialty Service Requested 04/19/2022 04/19/2023 1 1 Encounter Details Date Type Department Care Team (Late st Contact Info) Description 04/19/2022 11:00 AM EDT Office Visit [facility] [address] [place] [place] [address] Asha Morataya MD [facility] [place] [address] Chronic insomnia; TITO (obstructive sleep apnea) Social [...] drive. If you get sleepy while driving truss puller helper ,turn the car off and nap. You may resume driving once you feel alert. 12) Read No More Sleepless Nights by Mack Heaton PhD. 13) There are some on-line resources that do require a fee that can be of help. Two credible websites are as follows: http://www.FlyCleaners https://www.sleepio.com An star used by the [place] is as follows: CBT-I Cable Tv Installer documented in this encounter Progress Notes * [...] no change in treatment ?? Re-evaluation in [facility] 05/09/19 On CPAP still and [...] would wake 6-6:30 am Questionnaires: Patient-reported scores: [facility] 04/13/2022 [facility] 5 (Low Risk) Insomnia Severity Index 9 (Subthreshold insomnia) [facility] 05/07/2019 05/09/2019 04/13/2022 [facility] 7 (Low Risk) 10 (High Risk) [...] Diagnosis Code ??? 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 Altered [...] 11 ??? fluticasone propionate (Flonase) 50 mcg/actuation [place], Suspension 1 spray by Each Nare route [...] Lite Meter Kit ??? FreeStyle Sanjana 2 [place] Misc 1 each by Other route daily. [...] unapproved cleaning methods (such as ozone generating rn anesthesiology). She is not aware of any black particles in the PAP circuit. Discussed that at this time, we believe that the benefit of CPAP likely outweighs the risk and that the journeyman sheet metal worker will replace or repair the machine - [...] counseling, chart review and documentation. Established patient: 24171: ___Total time including face to face, chart review and documentation of 20-29 min OR ___Low level of medical decision making (ie 1 stable (= at goal) chronic illnesses and low risk of morbidity) 26222: ___Total time including face to face, chart review and documentation of 30-39 min OR ___Moderate level of medical decision making (ie 1 chr illness with exac, progression or side effects of treatment or 2+ stable chronic illnesses and moderate risk of morbidity) 50516: _X__Total time including face to face, chart [...] 05/01/2024 11:20 AM EDT Appointment Mammography/[place] [address] Rodney Padilla MD [address] [place] [address] 05/01/2024 1:45 PM EDT [place] [address] Juanpablo Hernandez MD [facility] [place] [address] 05/23/2024 2:45 PM EST Clinical Support Family Medicine at [facility] [address] [place] [address] Julia Low RPH 01/30/2025 1:30 PM EDT Laboratory Appointment Lab at [facility] Hematology Oncology [address] [place] [address] 01/30/2025 3:[address] [place] [place] [address] Arturo Cordero MD [facility] DR [place] [address] 01/30/2025 4:15 PM EDT Office Visit [place] [address] Arturo Cordero MD [facility] DR [place] [address] Scheduled Referrals Name Type Priority Associated Diagnoses Order Schedule Referral to Behavioral Health Outpatient Referral Routine Chronic insomnia Ordered: 04/19/2022 documented as of this encounter Visit Diagnoses Diagnosis Chronic insomnia Insomnia, unspecified TITO (obstructive sleep apnea) Obstructive sleep apnea (adult) (pediatric) documented in this encounter Care Teams Supervisor Bleach Plant Relationship Specialty Start Date End Date Luis E Narayan MD [facility] DR [address] [place] [address] PCP - General Family Medicine 01/20/22 07/17/22 documented as of this encounter
--- OUTSIDE RECORDS SUMMARY | 2024-04-13 15:45 | XMS_ITS | Encounter Summary ---
Author Organization [facility] [address] Care Team Providers Care Human Relations Manager Name Role Phone Luis E Narayan MD Primary Care Provider +1- [phone] Reason for Visit * Reason Onset Date Comments Results 05/23/2022 Encounter Details Date Type Department Care Team (Late st Contact Info) Description 05/23/2022 Telephone Hematology [place] [address] Tito Matta [facility] Hematology/[place] [address] Results Social History Tobacco Use Types Packs/Day [...] * Telephone Encounter - Gudelia Mattas Selvin, [facility] - 05/23/2022 11:33 AM EST This test result was discussed with the patient by phone. A copy of the test results have been scanned in the medical record and sent to [facility]. A summary of the results is provided below. Please beadvised that [place] law requires that all health care workers respect the confidentiality ofthis information and not pass it along to other health care providers, insurance companies, or individuals without the written permission of the patient. The Familial Cancer Program welcomes any questions about these matters. Our phone number is: [phone]. On 05/13/2022 [facility] was seen for genetic counseling and subsequently underwent genetic testing for a hereditary predisposition to Renal/Ur. Following are the results of this test. Result: [facility]'s Renal/Urinary Tract Cancers Panel showed no mutation [...] Alize had previously opted for reflex to [facility]'s Multi-Cancer Panel andthis additional testing is still [...] 05/01/2024 11:20 AM EDT Appointment Mammography/[place] [address] Rodney Padilla MD [address] [place] [place] [address] 05/01/2024 1:45 PM EDT Office [place] [address] Juanpablo Hernandez MD [facility] DR OPHTHALMOLOGY [place], [place] [address] 05/23/2024 2:45 PM EST Clinical Support Family Medicine at [facility] [address] [place] [address] Julia Low [facility] 01/30/2025 1:30 PM EDT Laboratory Appointment Lab at [facility] [place] On[place] [address] [place] [address] 01/30/2025 3:[address] [place] [place] [address] Arturo Cordero MD [facility] DR HEMATOLOGY [place] [address] 01/30/2025 4:15 PM EDT Office Visit Hematology [place] [address] Arturo Cordero MD [facility] DR HEMATOLOGY [place] [address] documented as of this encounter Visit Diagnoses Not on filedocumented in this encounter Care Teams Human Relations Manager Relationship Specialty Start Date End Date Luis E Narayan MD [facility] DR [address]ALKER[place] [address] PCP - General Family Medicine 01/20/22 07/17/22 documented as of this encounter
--- OUTSIDE RECORDS SUMMARY | 2024-04-13 15:45 | XMS_ITS | Encounter Summary ---
Author Organization [facility] Address [facility] [place] [address] Care Team Providers Care Casualty Insurance Claim Adjuster Name Role Phone Luis E Narayan MD Primary Care Provider +1- [phone] Reason for Visit * Reason Comments Melanoma Encounter Details Date Type Department Care Team (Late st Contact Info) Description 06/01/2022 12:30 PM EST Office [place] [address] Juanpablo Hernandez MD [facility] [place] [address] Malignant melanoma of conjunctiva, left; Diabetic eye [...] 05/01/2024 11:20 AM EDT Appointment Mammography/[place] [address] Rodney Padilla MD [address] [place] [address] 05/01/2024 1:45 PM EDT Office [place] [address] Juanpablo Hernandez MD [facility] [place] [address] 05/23/2024 2:45 PM EST Clinical Support Family Medicine at [facility] [address] [place] [address] Julia Low, [facility] 01/30/2025 1:30 PM EDT Laboratory Appointment Lab at [facility] Hematology Oncology [address] [place] [address] 01/30/2025 3:[address] [place] [address] Arturo Cordero MD [facility] DR HEMATOLOGY [place] [address] 01/30/2025 4:15 PM EDT Office Visit Hematology [place] [address] Arturo Cordero MD [facility] DR HEMATOLOGY [place] [address] documented as of this encounter Visit Diagnoses Diagnosis Malignant melanoma of conjunctiva, left Diabetic eye exam Examination of eyes and vision documented in this encounter Care Teams Casualty Insurance Claim Adjuster Relationship Specialty Start Date End Date Luis E Narayan MD [facility] DR [address] [address] PCP - General Family Medicine 01/20/22 07/17/22 documented as of this encounter
--- OUTSIDE RECORDS SUMMARY | 2024-04-13 15:45 | XMS_ITS | Encounter Summary ---
Author Organization [facility] Address [facility] [place] [address] Care Team Providers Care Fraud Investigator Name Role Phone Daryn Garrett MD Primary Care Provider Reason for Visit * Reason Onset Date Comments Medication Refill 03/25/2022 Encounter Details Date Type Department Care Team (Late st Contact Info) Description 03/25/2022 Refill Family Medicine at [facility] [address] [place] [address] Luis E Narayan MD [facility] [address] LILI [place] [address] Essential hypertension Social History Tobacco Use Types [...] 05/01/2024 11:20 AM EDT Appointment Mammography/[place] [address] Rodney Padilla MD [address] [place] [address] 05/01/2024 1:45 PM EDT Office Visit [place] [address] [facility] [place] [place] [address] 05/23/2024 2:45 PM EST Clinical Support Family Medicine at [facility] [address] [place] [address] Julia Low [facility] 01/30/2025 1:30 PM EDT Laboratory Appointment Lab at [facility] [place]ology Oncology [address] [place] [address] 01/30/2025 3:[address] [place] [address] [facility] [address] [place] [address] 01/30/2025 4:15 PM EDT Office Visit Hematology [place] [address] [facility] [address] [place] [address] documented as of this encounter Visit Diagnoses Diagnosis Essential hypertension Unspecified essential hypertension documented in this encounter Care Teams Fraud Investigator Relationship Specialty Start Date End Date Daryn Garrett MD [facility] [address] [place] [address] PCP - General 04/10/24 documented as of this encounter
--- OUTSIDE RECORDS SUMMARY | 2024-04-13 15:45 | XMS_ITS | Encounter Summary ---
Author Organization [facility] Address [facility] [place] [address] Care Team Providers Care Road Machine Operator Name Role Phone Luis E Narayan MD Primary Care Provider +1- [phone] Reason for Visit * Reason Comments Follow-up Encounter Details Date Type Department Care Team (Late st Contact Info) Description 04/12/2022 1:00 PM EDT Office Visit Family Medicine at [facility] [address] [place] [address] Suzanne Martinez APRN [facility] DR LIL[address] [place] [address] Acute upper respiratory infection; Frequency of micturition; [...] emergency room visits near her home in [facility]. On 03/28, she wasprescribed Augmentin [...] Diagnosis Code ??? 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 Altered [...] 05/01/2024 11:20 AM EDT Appointment Mammography/[place] [address] Rodney Padilla MD [address] [facility] [place] [address] 05/01/2024 1:45 PM EDT Office [place] [address] Juanpablo Hernandez MD [facility] [place] [address] 05/23/2024 2:45 PM EST Clinical Support Family Medicine at [facility] [address] [place] [address] Julia Low [facility] 01/30/2025 1:30 PM EDT Laboratory Appointment Lab at [facility] Hematology Oncology [address] [place] [address] 01/30/2025 3:[address] [place] [address] Arturo Cordero MD [facility] DR [place] [address] 01/30/2025 4:15 PM EDT Office Visit Hematology [place] [address] Arturo Cordero MD [facility] DR [place] [address] documented as of this encounter Procedures Procedure [...] (ABNORMAL) Hemoglobin A1c (04/12/2022 2:20 PM EDT) Hemoglobin A1c 9.2(H) 4.3 - 5.6 % [facility] Comment: Reference Range: 4.3 - [...] Mellitus, Diabetes Care 2013; 36: Suppl. 1, W08-37 Estimated Average Glucose 217 mg/dL [facility] Comment: eAG equivalents for HbA1c [...] into estimated average glucose values. ??Diabetes Care 2008:31(8):4900-2398. Blood 04/12/2022 2:20 PM EDT 04/12/2022 4:10 PM EDT Narrative Resulting Agency Comment Spec In Lab Suzanne Sorensen Michelle WIRE STITCHER MACHINE CHEMISTRY ORDERABL ES [facility] [place] [address] * (ABNORMAL) Comprehensive metabolic panel (non-fasting) (04/12/2022 2:20 PM EDT) Glucose 278(H) 65 - 199 mg/dL [facility] Comment:Diabetes: >=200 mg/d L plus symptoms Blood Urea Nitrogen 11 8 - 18 mg/dL [facility] Creatinine 0.96 0.70 - 1.20 mg/dL [facility] Sodium 138 135 - 145 mmol/L [facility] Potassium 4.5 3.5 - 5.0 mmol/L [facility] Comment: Please note: ??Patients with WBC >100,000 may have falsely elevated Potassium levels. ??For accurate Potassium quantification in these patients send serum separator tube (gold top) for subsequent determinations. ??Contact the Clinical Chemistry Laboratory if there are any questions. Chloride 99 98 - 107 mmol/L [facility] Carbon Dioxide 27 22 - 31 mmol/L [facility] Anion Gap 12 5 - 15 mmol/L [facility] Calcium 10.0 8.5 - 10.5 mg/dL [facility] Protein, Total 6.9 6.1 - 8.0 g/dL [facility] Albumin 4.1 3.2 - 5.2 g/dL [facility] Aspartate Aminotransferase 18 0 - 30 unit/L [facility] Alanine Aminotransferase 27 0 - 30 unit/L [facility] Alkaline Phosphatase 104 35 - 105 unit/L [facility] Bilirubin, Total 0.6 0.2 - 1.3 mg/dL [facility] Est Glomerular Filtration Rate 67 >=60 mL/min/1. 73 m?? [facility] [...] Lab Suzanne Martinez APRN CHEMISTRY ORDERABL ES [facility] [place] [address] * (ABNORMAL) POCT urine dipstick (04/12/2022 1:50 PM EDT) POC Sp [place] 1.015 1.002 - 1.030 POC pH, UA [...] Negative leydi/uL 04/12/2022 1:50 PM EDT Suzanne aMrtinez APRN POINT OF CARE TEST ORDERABLES * (ABNORMAL) Urinalysis with reflex Culture (04/12/2022 1:30 PM EDT) Glucose, Urine Dipstick >=1000(Criti mariann) Negative mg/dL [facility] Comment: Urinalysis result NOT critical without a combination of Glucose greater than or equal to 500 mg/dL AND Ketones greater than or equal to 80 mg/dL Protein, Urine Dipstick Negative Negative mg/dL [facility] Bilirubin, Urine Dipstick Negative Negative mg/dL [facility] Comment: Clinical correlation required for positive Urine Bilirubin results as false positive may occur with some drugs and drug related products. If a false positive is suspected a serum total bilirubin should be considered if clinically indicated. Urobilinogen, Urine Dipstick Normal Normal mg/dL [facility] pH, Urn (dipstick) 6.0 5.0 - 8.0 [facility] Blood, Urine Dipstick Negative Negative mg/dL [facility] Ketone, Urine Dipstick Negative Negative mg/dL [facility] Nitrite, Urine Dipstick Negative Negative [facility] Leukocytes, Urine Dipstick Negative Negative [facility] Appearance, Urine Dipstick Clear Clear [facility] Specific [place] Urine Automated 1.024 1.005 - 1.030 [facility] Color, Urine Dipstick Yellow Yellow [facility] Reflex to Culture No [facility] Clean Catch Urine 04/12/2022 1:30 PM EDT 04/12/2022 6:54 PM EDT Narrative Resulting Agency Comment Spec In Lab Suzanne Martinez APRN URINE ORDERABLES [facility] [place] [address] documented in this encounter Visit Diagnoses Diagnosis Acute upper respiratory infection Acute upper respiratory infections of unspecified site Frequency of micturition Urinary frequency Lower abdominal pain Abdominal pain, other specified site Type 2 diabetes mellitus with hyperglycemia, without long-term current use of insulin Ear pain, bilateral Oral thrush Candidiasis of mouth Intertrigo Other specified erythematous condition documented in this encounter Care Teams Road Machine Operator Relationship Specialty Start Date End Date Luis E Narayan MD [facility] [address] [place] [address] PCP - General Family Medicine 01/20/22 07/17/22 documented as of this encounter
--- OUTSIDE RECORDS SUMMARY | 2024-04-13 15:45 | XMS_ITS | Encounter Summary ---
Author Organization [facility] Address [facility] [place] [address] Care Team Providers Care Complaint Analyst Name Role Phone Luis E Narayan MD Primary Care Provider [phone] Encounter Details Date Type Department Care Team [...] 05/01/2024 11:20 AM EDT Appointment Mammography/[place] [address] Rodney Padilla MD [address] [place] [place] [address] 05/01/2024 1:45 PM EDT Office [place] [address] Juanpablo Hernandez MD [facility] [place] [address] 05/23/2024 2:45 PM EST Clinical Support Family Medicine at [facility] [address] [place] [address] Julia Low [facility] 01/30/2025 1:30 PM EDT Laboratory Appointment Lab at [facility] [place] Hematology Oncology [address] [place] [address] 01/30/2025 3:[address] [place] [address] Arturo Cordero MD [facility] DR HEMATOLOGY [place] [address] 01/30/2025 4:15 PM EDT Office Visit Hematology [place] [address] Arturo Cordero MD [facility] HEMATOLOGY [place] [address] documented as of this encounter Visit Diagnoses Not on filedocumented in this encounter Care Teams Complaint Analyst Relationship Specialty Start Date End Date Luis E Narayan MD [facility] [address]-[place] [address] PCP - General Family Medicine 01/20/22 07/17/22 documented as of this encounter
--- OUTSIDE RECORDS SUMMARY | 2024-04-13 15:45 | XMS_ITS | Encounter Summary ---
Author Organization [facility] [place] [address] Care Team Providers Care House Director Name Role Phone Luis E Narayan MD Primary Care Provider +1- [phone] Encounter Details Date Type Department Care Team (Latest Contact Info) Description 05/13/2022 12:52 PM EDT - 05/13/2022 11:59 PM EDT Hospital Encounter [place]ematology [place] [address] Ocular melanoma, left; Renal cell cancer, left; [...] each 11 12/10/2021 02/04/2023 FreeStyle Sanjana 2 [place] MiscIndications:diabet es mellitus 1 each by Other [...] 10/11/2021 06/16/2022 fluticasone propionate (Flonase) 50 mcg/actuation [place], Suspension 1 spray by Each Nare route [...] 05/01/2024 11:20 AM EDT Appointment Mammography/[place] [address] Rodney Padilla MD [address] [place] [address] 05/01/2024 1:45 PM EDT Office [place] [address] Juanpablo Hernandez MD [facility] [place] [address] 05/23/2024 2:45 PM EST Clinical Support [facility] Medicine at [facility] [address] [place] [address] Julia Low [facility] 01/30/2025 1:30 PM EDT Laboratory Appointment Lab at [facility] Hematology Oncology [address] [place] [address] 01/30/2025 3:[address] [place] [address] Arturo Cordero MD [facility] DR [place] [address] 01/30/2025 4:15 PM EDT Office Visit Hematology [place] [address] Arturo Cordero MD [facility] DR [place] [address] documented as of this encounter Procedures Procedure Name Priority Date/Time Associated Diagnosis Comments RESEARCH VENIPUNCTURE Routine 05/13/2022 1:05 PM EDT Ocular melanoma, left Renal cell cancer, left documented in this encounter Results * Research Venipuncture (05/13/2022 1:05 PM EDT) Research Venipuncture Drawn [facility] Comment: Collection date/time has been modified to: 13:05:00. ??Previous collection date/time: 13:08:00. Corrected from Drawn [NA] on 05/13/22 13:36:44 EDT by Cynid Dowd Blood 05/13/2022 1:05 PM EDT 05/13/2022 1:25 PM EDT Narrative Resulting Agency Comment Spec In Lab Dar Fernandez MD CHEMISTRY ORDERABLES [facility] [place] [address] documented in this encounter Visit Diagnoses Diagnosis Ocular melanoma, left Renal cell cancer, left Malignant melanoma of conjunctiva, left documented in this encounter Care Teams House Director Relationship Specialty Start Date End Date Luis E Narayan MD [facility] DR [address] [place] [address] PCP - General Family Medicine 01/20/22 07/17/22 documented as of this encounter
--- OUTSIDE RECORDS SUMMARY | 2024-04-13 15:45 | XMS_ITS | Encounter Summary ---
Author Organization [facility] Address [facility] [place] [address] Care Team Providers Care Oim Architect Name Role Phone Luis E Narayan MD Primary Care Provider +1- [phone] Reason for Visit * Reason Comments Follow-up Encounter Details Date Type Department Care Team (Late st Contact Info) Description 04/19/2022 3:30 PM EDT Office Visit Family Medicine at [facility] [address] [place] [address] Suzanne Martinez APRN [facility] [address] [place] [address] LLQ pain; Community acquired pneumonia, unspecified laterality; [...] this encounter Progress Notes * Suzanne Martinez, PORTER BATH - 04/19/2022 3:30 PM EDT Alize Gramajo is a 61 y.o. female , patient of Luis E Narayan MD here for Chief Complaint Patient presents with ??? Follow-up Subjective HPI: Alize presents for ED follow up for [facility] visit for LLQ pain and diarrhea on [...] but ongoing. Treated empirically with Augmentin at [facility] for ?diverticulitis and she is on ~day [...] 05/01/2024 11:20 AM EDT Appointment Mammography/[place] [address] Rodney Padilla MD [address] [place] [address] 05/01/2024 1:45 PM EDT Office [place] [address] Juanpablo Hernandez MD [facility] [place] [address] 05/23/2024 2:45 PM EST Clinical Support Family Medicine at [facility] [address] [place] [address] Julia Low [facility] 01/30/2025 1:30 PM EDT Laboratory Appointment Lab at [facility] Hematology Oncology [address] [place] [address] 01/30/2025 3:[address] [place] [address] Arturo Cordero MD [facility] DR [place] [address] 01/30/2025 4:15 PM EDT Office Visit Hematology [place] [address] Arturo Cordero MD [facility] DR [place] [address] documented as of this encounter Visit Diagnoses Diagnosis LLQ pain Abdominal pain, left lower quadrant Community acquired pneumonia, unspecified laterality Adrenal mass Unspecified disorder of adrenal glands Low back pain, non-specific documented in this encounter Care Teams Oim Architect Relationship Specialty Start Date End Date Luis E Narayan MD [facility] [address] [place] [address] PCP - General Family Medicine 01/20/22 07/17/22 documented as of this encounter
--- OUTSIDE RECORDS SUMMARY | 2024-04-13 15:45 | XMS_ITS | Encounter Summary ---
Author Organization [facility] Address [facility] [place] [address] Care Team Providers Care Utility Worker Forge Name Role Phone Luis E Narayan MD Primary Care Provider +1- [phone] Reason for Visit * Reason Comments Follow-up f/u from hospital vi sit Encounter Details Date Type Department Care Team (Late st Contact Info) Description 04/05/2022 11:30 AM EDT Office Visit Family Medicine at [facility] [address] [place] [address] Earl Valdez MD [facility] [address] [address] Frequency of micturition; COPD; Yeast vaginitis Social [...] emergency room visits near her home in [facility]. On 03/28, she was prescribed Augmentin and [...] Diagnosis Code ??? 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 Altered [...] each, Rfl: 11 ??? FreeStyle Sanjana 2 [place] Misc, 1 each by Other route daily. [...] 11 ??? fluticasone propionate (Flonase) 50 mcg/actuation [place], Suspension, 1 spray by Each Nare route2 [...] will send a prescription for this to [facility] in [facility]. She will continue on these current medications [...] a total of at least 30 minutes ([id number]) providing this patient's care. This includes time spent [id number] with the patient performing evaluation, examination, and counseling . It also includes non [id number] time preparing to see the patient, coordinating care, and documenting clinical information in the electronic health record. documented in this encounter Plan of Treatment Upcoming Encounters Date Type Department Care Team (Late st Contact Info) Description 05/01/2024 11:20 AM EDT Appointment Mammography/[place] [address] Rodney Padilla MD [address] [place] [place] [address] 05/01/2024 1:45 PM EDT [place] [address] Juanpablo Hernandez MD [facility] [place] [address] 05/23/2024 2:45 PM EST Clinical Support Family Medicine at [facility] [address] [place] [address] Julia Low [facility] 01/30/2025 1:30 PM EDT Laboratory Appointment Lab at [facility] Hematology Oncology [address] [place] [address] 01/30/2025 3:[address] [place] [place] [address] Arturo Cordero MD [facility] [place] [address] 01/30/2025 4:15 PM EDT Office Visit [place] [address] Arturo Cordero MD [facility] [place] [address] documented as of this encounter Procedures Procedure [...] coli 1,000-9,000 cfu/ml mixed mucosal nimisha (A) [facility] Organism Escherichia coli(A) [facility] Urine NS 04/05/2022 12:4 1 PM [...] Valdez MD MICROBIOLOGY - GENER AL ORDERABLES [facility] [place] [address] * (ABNORMAL) Urinalysis Microscopic Exam (04/05/2022 12:41 PM EDT) RBC, Urine 3 0 - 4 /HPF [facility] WBC, Urine 10(H) 0 - 5 /HPF [facility] Bacteria, Urine Rare(A) None /HPF [facility] Squamous Epithelial Cells Raw Data, Urine 2 <=4 /HPF [facility] Urine NS 04/05/2022 12:4 1 PM EDT 04/05/2022 4:36 PM EDT Narrative Resulting Agency Comment Spec In Lab Earl Valdez MD URINE ORDERABLES Performing Organization Address City/[facility]/ZIP Co de Phone Number [facility] [place] [address] * (ABNORMAL) Urinalysis with reflex Culture (04/05/2022 12:41 PM EDT) Glucose, Urine Dipstick 100(A) Negative mg/dL [facility] Protein, Urine Dipstick Negative Negative mg/dL [facility] Bilirubin, Urine Dipstick Negative Negative mg/dL [facility] Comment: Clinical correlation required for positive Urine Bilirubin results as false positive may occur with some drugs and drug related products. If a false positive is suspected a serum total bilirubin should be considered if clinically indicated. Urobilinogen, Urine Dipstick Normal Normal mg/dL [facility] pH, Urn (dipstick) 5.5 5.0 - 8.0 [facility] Blood, Urine Dipstick Negative Negative mg/dL [facility] Ketone, Urine Dipstick Negative Negative mg/dL [facility] Nitrite, Urine Dipstick Negative Negative [facility] Leukocytes, Urine Dipstick Moderate(A) Negative [facility] Appearance, Urine Dipstick Clear Clear [facility] Specific [place] Urine Automated 1.011 1.005 - 1.030 [facility] Color, Urine Dipstick Yellow Yellow [facility] Reflex to Culture Yes [facility] Urine NS 04/05/2022 12:4 1 PM EDT 04/05/2022 4:36 PM EDT Narrative Resulting Agency Comment Spec In Lab Earl Valdez MD URINE ORDERABLES [facility] [place] [address] documented in this encounter Visit Diagnoses Diagnosis Frequency of micturition Urinary frequency COPD Simple chronic bronchitis Yeast vaginitis Candidiasis of vulva and vagina documented in this encounter Care Teams Utility Worker Forge Relationship Specialty Start Date End Date Luis E Narayan MD [facility] [place] [address] PCP - General Family Medicine 01/20/22 07/17/22 documented as of this encounter
--- OUTSIDE RECORDS SUMMARY | 2024-04-13 15:45 | XMS_ITS | Encounter Summary ---
Author Organization [facility] [place] [address] Care Team Providers Care Auto Service Advisor Name Role Phone Luis E Narayan MD Primary Care Provider Encounter Details Date Type Department Care Team (Late st Contact Info) Description 04/21/2022 Telephone Family Medicine at [address] [place] [phone] Shannon Ward, RN Social History Tobacco Use [...] 04/21/2022 4:24 PM EDT Letter received from [facility] requesting neb supplies with nebulizer order. DME order re-prepped and pended for provider review. documented in this encounter Plan of Treatment Upcoming Encounters Date Type Department Care Team (Late st Contact Info) Description 05/01/2024 11:20 AM EDT Appointment Mammography/[place] [address] Rodney Padilla MD [address] [place] [address] 05/01/2024 1:45 PM EDT Office [place] [address] Juanpablo Hernandez MD [facility] [place] [address] 05/23/2024 2:45 PM EST Clinical Support Family Medicine at [facility] [address] [place] [address] Julia Low [facility] 01/30/2025 1:30 PM EDT Laboratory Appointment Lab at [facility] Hematology Oncology [address] [place] [address] 01/30/2025 3:[address] [place] [address] Arturo Cordero MD [facility] [address] [place] [address] 01/30/2025 4:15 PM EDT Office Visit Hematology [place] [address] Arturo Cordero MD [facility] DR [place] [address] documented as of this encounter Visit Diagnoses Diagnosis COPD Simple chronic bronchitis documented in this encounter Care Teams Auto Service Advisor Relationship Specialty Start Date End Date Luis E Narayan MD [facility] DR [address] [place] [address] PCP - General Family Medicine 01/20/22 07/17/22 documented as of this encounter
--- OUTSIDE RECORDS SUMMARY | 2024-04-13 15:46 | XMS_ITS | Encounter Summary ---
Author Organization [facility] Address [facility] [place] [address] Care Team Providers Care Experimental Worker Name Role Phone Luis E Narayan MD Primary Care Provider [phone]- [phone] Reason for Visit * Reason Onset Date Comments Medication Refill 09/07/2021 Encounter Details Date Type Department Care Team (Late st Contact Info) Description 09/07/2021 Refill Family Medicine at [facility] [address] [place] [address] Luis E Narayan MD [facility] [address] [facility] [address] Social History Tobacco Use Types Packs/Day Years [...] Refills ??? fluticasone propionate (Flonase) 50 mcg/actuation [place], Suspension 16 g 11 Si spray by Each Nare route 2 times daily. Last office visit: seen today for teleheatlh with Yocasta Low Last refill: 08/04/2020 documented in this encounter Plan of Treatment Upcoming Encounters Date Type Department Care Team (Late st Contact Info) Description 05/01/2024 11:20 AM EDT Appointment Mammography/[place] [address] Rodney Padilla MD [address] [place] [address] 05/01/2024 1:45 PM EDT Office [place] [address] Juanpablo Hernandez MD [facility] [place] [address] 05/23/2024 2:45 PM EST Clinical Support Family Medicine at [facility] [address] [place] [address] Julia Low, [facility] 01/30/2025 1:30 PM EDT Laboratory Appointment Lab at [facility] Hematology Oncology [address] [place] [address] 01/30/2025 3:[address] [place] [address] Arturo Cordero MD [facility] DR HEMATOLOGY [place] [address] 01/30/2025 4:15 PM EDT Office Visit Hematology [place] [address] Arturo Cordero MD [facility] DR HEMATOLOGY [place] [address] documented as of this encounter Visit Diagnoses Not on filedocumented in this encounter Care Teams Experimental Worker Relationship Specialty Start Date End Date Luis E Narayan MD [facility] [address] [facility] [address] PCP - General Family Medicine 03/26/19 01/19/22 documented as of this encounter
--- OUTSIDE RECORDS SUMMARY | 2024-04-13 15:46 | XMS_ITS | Encounter Summary ---
Author Organization [facility] [place] [address] Care Team Providers Care Architectural Design Professor Name Role Phone Luis E Narayan MD Primary Care Provider [phone]- [phone] Reason for Visit * Reason Comments Leg Swelling Both sides Encounter Details Date Type Department Care Team (Latest Contact Info) Description 08/20/2021 10:40 AM EST Office Visit Family Medicine at [facility] [address] [place] [address] Hair Kelly MD [facility] [place] [address] Edema of lower extremity; Primary osteoarthritis of [...] Kelly MD - 08/20/2021 10:40 AM EST lAize Gramajo is a 60 y.o. female who [...] Diagnosis Code ??? Coronary artery disease involving delaware tribe coronary artery of delaware tribe heart with angina pectoris I25.119 ??? Altered [...] 30 tablet 3 ??? FreeStyle Sanjana 2 [place] Misc 1 each by Other route daily. [...] 0 ??? fluticasone propionate (FLONASE) 50 mcg/actuation [place], Suspension 1 spray by Each Nare route [...] 05/01/2024 11:20 AM EDT Appointment Mammography/[place] [address] Rodney Padilla MD [address] [place] [address] 05/01/2024 1:45 PM EDT Office [place] [address] Juanpablo Hernandez MD [facility] [place] [address] 05/23/2024 2:45 PM EST Clinical Support Family Medicine at [facility] [address] [place] [address] Julia Low [facility] 01/30/2025 1:30 PM EDT Laboratory Appointment Lab at [facility] Hematology Oncology [address] [place] [address] 01/30/2025 3:[address] [place] [address] Arturo Cordero MD [facility] HEMATOLOGY [place] [address] 01/30/2025 4:15 PM EDT Office Visit Hematology [place] [address] Arturo Cordero MD [facility] DR HEMATOLOGY [place] [address] documented as of this encounter Visit Diagnoses Diagnosis Edema of lower extremity Edema Primary osteoarthritis of both knees Primary localized osteoarthrosis, lower leg documented in this encounter Care Teams Architectural Design Professor Relationship Specialty Start Date End Date Luis E Narayan MD [facility] [address] [place] [address] PCP - General Family Medicine 03/26/19 01/19/22 documented as of this encounter
--- OUTSIDE RECORDS SUMMARY | 2024-04-13 15:46 | XMS_ITS | Encounter Summary ---
Author Organization [facility] [place] [address] Care Team Providers Care Automatic Seamer Name Role Phone Luis E Narayan MD Primary Care Provider [phone] Reason for Referral * Consultation (Routine) - Closed Specialty Diagnoses / Procedures Referred By Gonzalez white Referred To Contact Hematology and Oncology Diagnoses History of malignant melanoma of eye Alonso Young MD [facility] [address] [address] [facility] Hem Onc [address] [place] [address] Referral ID Status Reason Start Date Expiration Date V isits Requested Visits Authorized [id number] Closed Consult, Test & Treat 02/14/2022 02/14/2023 1 1 Reason for Visit * Consultation (Routine) - Closed Specialty Diagnoses / Procedures Referred By Contchrissy white Referred To Contact Dermatology Diagnoses Malignant melanoma of conjunctiva, left Givens, Shane White MD [facility] [place] [address] [facility] Dermatology [address] [place] [address] Referral ID Status Reason Start Date Expiration Date V isits Requested Visits Authorized [id number] Closed Consult, Test & Treat 11/17/2021 11/17/2022 1 1 Encounter Details Date Type Department Care Team (Late st Contact Info) Description 02/14/2022 10:00 AM EDT Office Visit Dermatology at [facility] [address] [place] [address] Alonso Young MD [facility] [address] [address] History of malignant melanoma of eye; Seborrheic [...] on the trunk and extremities, including R roman catholic - Benign. No treatment needed. #. Solar [...] months for a FSE []Note routed to sales secretary [x]Recall placed in scheduling system []Appointment scheduled at checkout Scribe attestation: Lavinia Bains and Sugey Rodriguez [facility] have performed the documentation for this encounter in the presence of and acting as a scribe for Alonso Young MD. I performed the above scribed service and agree with the accuracy of the documentation in this encounter. Reviewed and signed by: Alonso Young MD Dermatology [facility] Patient seen and evaluated with staff business intelligence reporting analyst: Aris Taylor MD Dermatology [facility] * Aris Taylor MD - 02/14/2022 10:00 [...] 05/01/2024 11:20 AM EDT Appointment Mammography/[place] [address] Rodney Padilla MD [address] [place] [address] 05/01/2024 1:45 PM EDT Office [place] [address] Juanpablo Hernandez MD [facility] [place] [address] 05/23/2024 2:45 PM EST Clinical Support Family Medicine at [facility] [address] [place] [address] Julia Low [facility] 01/30/2025 1:30 PM EDT Laboratory Appointment Lab at [facility] Hematology Oncology [address] [place] [address] 01/30/2025 3:[address] [place] [address] Arturo Cordero MD [facility] [place] [address] 01/30/2025 4:15 PM EDT Office Visit Hematology and Oncology at [facility] [place] [address] Arturo Cordero MD [facility] [place] [address] Scheduled Referrals Name Type Priority Associated Diagnoses [...] acquired documented in this encounter Care Teams Automatic Seamer Relationship Specialty Start Date End Date Luis E Narayan MD [facility] [address] [place] [address] PCP - General Family Medicine 01/20/22 07/17/22 documented as of this encounter
--- OUTSIDE RECORDS SUMMARY | 2024-04-13 15:46 | XMS_ITS | Encounter Summary ---
Author Organization [facility] Address [facility] [place] [address] Care Team Providers Care Silver Brazer Name Role Phone Luis E Narayan MD Primary Care Provider Reason for Referral * Consultation (Routine) - Closed Specialty Diagnoses / Procedures Referred By Gonzalez kumari Referred To Contact Dermatology Diagnoses Malignant melanoma of conjunctiva, left Shane Givens MD [facility] [place] [address] [facility] [address] [place] [address] Referral ID Status Reason Start Date Expiration Date V isits Requested Visits Authorized [id number] Closed Consult, Test & Treat 11/17/2021 11/17/2022 1 1 Encounter Details Date Type Department Care Team (Late st Contact Info) Description 11/17/2021 1:30 PM EDT Office [place] [address] Shane Givens MD [facility] [place] [address] Malignant melanoma of conjunctiva, left; Diabetic eye [...] 05/01/2024 11:20 AM EDT Appointment Mammography/[place] [address] Rodney Padilla MD [address] [place] [address] 05/01/2024 1:45 PM EDT Office [place] [address] Juanpablo Hernandez MD [facility] [place] [place] [address] 05/23/2024 2:45 PM EST Clinical Support Family Medicine at [facility] [address] [place] [address] Julia Low, [facility] 01/30/2025 1:30 PM EDT Laboratory Appointment Lab at [facility] Hematology Oncology [address] [place] [address] 01/30/2025 3:[address] [place] [address] Arturo Cordero MD [facility] [place] [address] 01/30/2025 4:15 PM EDT Office Visit [place]ematology [place] [address] Arturo Cordero MD [facility] [place] [address] Scheduled Referrals Name Type Priority Associated Diagnoses Order Schedule Referral to Dermatology Outpatient Referral Routine Malignant melanoma of conjunctiva, left Ordered: 11/17/2021 documented as of this encounter Visit Diagnoses Diagnosis Malignant melanoma of conjunctiva, left Diabetic eye exam Examination of eyes and vision documented in this encounter Care Teams Silver Brazer Relationship Specialty Start Date End Date Luis E Narayan MD [facility] [address] [place] [address] PCP - General Family Medicine 03/26/19 01/19/22 documented as of this encounter
--- OUTSIDE RECORDS SUMMARY | 2024-04-13 15:46 | XMS_ITS | Encounter Summary ---
Author Organization [facility] Address One [facility] [place] [address] Care Team Providers Care Sand Tester Name Role Phone Luis E Narayan MD Primary Care Provider [phone] Reason for Visit * Reason Comments Diabetes Encounter Details Date Type Department Care Team (Late st Contact Info) Description 09/24/2021 11:30 AM EDT TH Visit (TeleHealth) Family Medicine at [facility] [address] [place] [address] Julia Low, [facility] [...] antithrombotic long-term use, Arthritis, Asthma, Atherosclerosis of [place] tribe [place] indians [place] 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 [...] afternoon SMBG: SMBG daily (FBG) Misplaced prescribed [place] CGM when moving Before Brkfast Before Supper [...] 08/26/21 09/09/21 Daily Avg 157 168 eA1c [id number] 8.46 Acute Complications Have you ever had [...] enough to eat eggs every day. Lunch: [place] with ham/turkey, Malian cheese, crisostomo, mustard with Doritos Dinner: Spaghetti [...] area transportation options [] Languages other than Mongolian: Fire Hazard Inspector services provided No [] Allowances for cultural diversity: meal plan will be tailored for cultural food shavon [] Hearing: Aviation Electrician provided No [] Vision impaired: print augmentation for visual impairment [x] No learning barriers identified Patient reports that after being sick with a virus, and a hospital admission involving levothyroxine, she has speech and cognitive problems. Objective: Reconciled Medication List: Current Outpatient Medications Medication Sig Dispense Refill ??? fluticasone propionate (Flonase) 50 mcg/actuation [place], Suspension 1 spray by Each Nare route [...] 30 tablet 3 ??? FreeStyle Sanjana 2 [place] Misc 1 each by Other route daily. [...] 09/07/2005 TDAP 04/09/2019 , 06/24/2011 Prescription Insurance: [facility] [id number] Assessment and Recommendations: 1. Diabetes Goals of [...] for the individual, but in general the [place] Diabetes Association recommends a fasting blood sugar [...] were made at the appointment and that [facility] is providing recommendations (summary located at top of note) for provider review and follow up. Julia Low RPH 09/24/21 documented in this encounter Plan of Treatment Upcoming Encounters Date Type Department Care Team (Late st Contact Info) Description 05/01/2024 11:20 AM EDT Appointment Mammography/[place] [address] Rodney Padilla MD [address] [place] [address] 05/01/2024 1:45 PM EDT Office [place] [address] Juanpablo Hernandez MD [facility] [place] [address] 05/23/2024 2:45 PM EST Clinical Support Family Medicine at [facility] [address] [place] [address] Julia Low RPH 01/30/2025 1:30 PM EDT Laboratory Appointment Lab at [facility] Hematology Oncology [address] [place] [address] 01/30/2025 3:[address] [place] [address] Arturo Cordero MD [facility] DR HEMATOLOGY [place] [address] 01/30/2025 4:15 PM EDT Office Visit Hematology [place] [address] Arturo Cordero MD [facility] DR HEMATOLOGY [place] [address] documented as of this encounter Visit Diagnoses Diagnosis Type 2 diabetes mellitus without long-term current use of insulin documented in this encounter Care Teams Sand Tester Relationship Specialty Start Date End Date Luis E Narayan MD [facility] [address]-[place] [address] PCP - General Family Medicine 03/26/19 01/19/22 documented as of this encounter
--- OUTSIDE RECORDS SUMMARY | 2024-04-13 15:46 | XMS_ITS | Encounter Summary ---
Author Organization [facility] Address [facility] [place] [address] Care Team Providers Care Second Shift Supervisor Name Role Phone Luis E Narayan MD Primary Care Provider [phone]- [phone] Reason for Visit * Reason Onset Date Comments Medication Refill 12/10/2021 Encounter Details Date Type Department Care Team (Late st Contact Info) Description 12/10/2021 Refill Family Medicine at [facility] [address] [place] [address] Luis E Narayan MD [facility] [address]ALK[address]-[place] [address] COPD Social History Tobacco Use Types Packs/Day [...] 11:20 AM EDT Appointment Mammography/[place] [address] Rodney Padilla MD [address] [place] [address] 05/01/2024 1:45 PM EDT Office Visit [place] [address] Juanpablo Hernandez MD [facility] [place] [address] 05/23/2024 2:45 PM EST Clinical Support Family Medicine at [facility] [address] [place] [address] Julia Low [facility] 01/30/2025 1:30 PM EDT Laboratory Appointment Lab at [facility] Hematology Oncology [address] [place] [address] 01/30/2025 3:[address] [place] [address] Arturo Cordero MD [facility] DR HEMATOLOGY [place] [address] 01/30/2025 4:15 PM EDT Office Visit Hematology [place] [address] Arturo Cordero MD [facility] DR HEMATOLOGY [place] [address] documented as of this encounter Visit Diagnoses Diagnosis COPD Simple chronic bronchitis documented in this encounter Care Teams Second Shift Supervisor Relationship Specialty Start Date End Date Luis E Narayan MD [facility] [place] [address] PCP - General Family Medicine 03/26/19 01/19/22 documented as of this encounter
--- OUTSIDE RECORDS SUMMARY | 2024-04-13 15:46 | XMS_ITS | Encounter Summary ---
Author Organization [facility] Address One [facility] [place] [address] Care Team Providers Care Sales Broker Name Role Phone Luis E Narayan MD Primary Care Provider [phone]- [phone] Reason for Visit * Reason Comments Diabetes Encounter Details Date Type Department Care Team (Late st Contact Info) Description 09/09/2021 2:00 PM EST TH Visit (TeleHealth) Family Medicine at [facility] [address] [place] [address] Julia Low, [facility] Type 2 diabetes mellitus without [...] antithrombotic long-term use, Arthritis, Asthma, Atherosclerosis of [place] 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 [...] VPharm is active she is able to burr picker the med tomorrow. Also Spoke to pharmacist [...] 149 Highest 188 Daily Avg 168 eA1c 8.596729 Prior Averages: 08/26/21 AM Average 157 Lowest 134 Highest 182 Daily Avg 157 eA1c 8.447534 Acute Complications Have you ever had a [...] enough to eat eggs every day. Lunch: [place] with ham/turkey, [place] cheese, crisostomo, mustard with Doritos Dinner: Spaghetti [...] area transportation options [] Languages other than Iraqi: Grinder And Honer Operator Automatic services provided No [] Allowances for cultural diversity: meal plan will be tailored for cultural food shavon [] Hearing: Outreach Educator provided No [] Vision impaired: print augmentation [...] 30 tablet 3 ??? FreeStyle Sanjana 2 [place] Misc 1 each by Other route daily. [...] 0 ??? fluticasone propionate (FLONASE) 50 mcg/actuation [place], Suspension 1 spray by Each Nare route [...] 09/07/2005 TDAP 04/09/2019 , 06/24/2011 Prescription Insurance: [facility] [id number] Assessment and Recommendations: 1. Diabetes Goals of [...] coverage is now sortedout and shoul calin vazquez to burr picker Ozempic to start tomorrow o Denies s/sx [...] for the individual, but in general the [place] Diabetes Association recommends a fasting blood sugar [...] were made at the appointment and that [facility] is providing recommendations (summary located at top of note) for provider review and follow up. Julia Low RPH 09/09/21 documented in this encounter Plan of Treatment Upcoming Encounters Date Type Department Care Team (Late st Contact Info) Description 05/01/2024 11:20 AM EDT Appointment Mammography/[place] [address] Rodney Padilla MD [address] [place], [place] [address] 05/01/2024 1:45 PM EDT Office [place] [address] Juanpablo Hernandez MD [facility] DR OPHTHALMOLOGY [place], [place] [address] 05/23/2024 2:45 PM EST Clinical Support Family Medicine at [facility] [address] [place] [address] Julia Low RPH 01/30/2025 1:30 PM EDT Laboratory Appointment Lab at [facility] Hematology Oncology [address] [place] [address] 01/30/2025 3:[address] [place] [address] Arturo Cordero MD [facility] DR [place] [address] 01/30/2025 4:15 PM EDT Office Visit Hematology [place] [address] Arturo Cordero MD [facility] DR HEMATOLOGY AND ONCOLOGY [place], [place] [address] documented as of this encounter Visit Diagnoses Diagnosis Type 2 diabetes mellitus without long-term current use of insulin documented in this encounter Care Teams Sales Broker Relationship Specialty Start Date End Date LuisE Narayan MD [facility] DR [address] [place] [address] PCP - General Family Medicine 03/26/19 01/19/22 documented as of this encounter
--- OUTSIDE RECORDS SUMMARY | 2024-04-13 15:46 | XMS_ITS | Encounter Summary ---
Author Organization [facility] [place] [address] Care Team Providers Care Local Coordinator Name Role Phone Luis E Narayan MD Primary Care Provider +1- [phone] Encounter Details Date Type Department Care Team (Late st Contact Info) Description 11/17/2021 11:19 AM EDT - 11/17/2021 11:59 PM EDT Hospital [place] [address] Leandra Black, RESIDENT INSPECTOR [facility] [place] [address] Malignant melanoma of conjunctiva, left; Malignant melanoma, [...] each 3 11/07/2022 11/02/2023 FreeStyle Sanjana 2 [place] MiscIndications:diabetes mellitus 1 each by Other route [...] 10/01/2021 01/29/2022 fluticasone propionate (Flonase) 50 mcg/actuation [place], Suspension 1 spray by Each Nare route [...] AM EDT Appointment Mammography/[place] [address] Rodney Padilla MD [address] [place] [address] 05/01/2024 1:45 PM EDT Office [place] [address] Juanpablo Hernandez MD [facility] [place] [address] 05/23/2024 2:45 PM EST Clinical Support Family Medicine at [facility] [address] [address] Devante Julia Pelletier, [facility] 01/30/2025 1:30 PM EDT Laboratory Appointment [place] [facility] [place] [address] [place] [address] 01/30/2025 3:[address] [place] [address] Arturo Cordero MD [facility] [address] [place] [address] 01/30/2025 4:15 PM EDT Office Visit [place]ematology [place] [address] Arturo Cordero MD [facility] [address] [place] [address] documented as of this encounter Procedures Procedure [...] who have questions, please contact the health manager career that requested your imaging first. ? Nakia Goetz, Staff Physician Electronically Signed Final Report ?? 11/17/2021 11:59 am Narrative 11/17/2021 12:00 PM EDT Ultrasound Soft Tissue ?(Signed Final 11/17/2021 11:59 am) Neck Left PATIENT INFO: ID #: ? [id number] ?: ??[birth year] (61 yrs)(F) Name: ? PTAIENCE MANJARREZ ? Visit Date: 11/17/2021 11:42 am PERFORMED BY: Performed By: ? Diana Lowe RDMS Attending: ?Sofy COLVIN, Nakia Andrade Referred By: ?LEANDRA BLACK Location: ? [place] SERVICE(S) PROVIDED: USTN - Soft Tissue Neck or Head - [id number] ? [id number] INDICATIONS: History of left eye conjunctival melanoma [...] am) Neck Left PATIENT INFO: ID #: [id number] : 58 (61 yrs)(F) Name: PATIENCE MANJARREZ Visit Date: 11/17/2021 11:42 am PERFORMED BY: Performed By: Diana Lowe RDMS Attending: Nakia Goetz MD Referred By: LEANDRA BLACK Location: [place] SERVICE(S) PROVIDED: USTN - Soft Tissue Neck or Head - [id number] INDICATIONS: History of left eye conjunctival melanoma [...] findings. Electronically signed by: Nakia Goetz MD, [facility] ([phone]), at 11/17/2021 11:51 AM Thank you for letting us participate in the care of this patient. If you are a health care provider and have any questions regarding this report, please contact the number above. For patients who have questions, please contact the health manager career that requested your imaging first. Nakia Goetz, Staff Physician Electronically Signed Final Report 11/17/2021 11:59 am Leandra Black APRN IMG US GEN ORDERAB LES documented in this encounter Visit Diagnoses Diagnosis Malignant melanoma of conjunctiva, left Malignant melanoma, unspecified site documented in this encounter Care Teams Local Coordinator Relationship Specialty Start Date End Date Luis E Narayan MD [facility] DR LIL[address] [place] [address] PCP - General Family Medicine 03/26/19 01/19/22 documented as of this encounter
--- OUTSIDE RECORDS SUMMARY | 2024-04-13 15:46 | XMS_ITS | Encounter Summary ---
Author Organization [facility] Address [facility] [place] [address] Care Team Providers Care Vice Principal Name Role Phone Luis E Narayan MD Primary Care Provider +1- [phone] Reason for Visit * Reason Comments Diabetes Encounter Details Date Type Department Care Team (Late st Contact Info) Description 11/16/2021 10:00 AM EDT TH Visit (TeleHealth) Family Medicine at [facility] [address] [place] [address] Julia Low, [facility] Type 2 diabetes mellitus without long-term [...] antithrombotic long-term use, Arthritis, Asthma, Atherosclerosis of [place] river 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 [...] difficult to hear pt due to phone dental receptionist/limited service Allergies and Drug intolerance: Allergies Allergen [...] have left at prior so house Before [facility] Before Lunch After Supper 129 137 138 144 152 162 147 175 -November 119 146 -November 156 92 3-November 124 -November 164 -November 6-November 13-November 8-November 89 AM PHI Average 140 134 138 Lowest 89 92 138 Highest 175 152 138 Daily Avg 138 eA1c 7.479846 Prior Averages: 08/26/21 09/09/21 09/24/21 Daily Avg 157 168 131 eA1c 8.717257 8.46 7.20 Acute Complications Have you ever [...] enough to eat eggs every day. Lunch: [place] with ham/turkey, Dominican cheese, crisostomo, mustard with Doritos Dinner: Spaghetti [...] area transportation options [] Languages other than [place] Islander: Sports Nutritionist services provided No [] Allowances for cultural diversity: meal plan will be tailored for cultural food shavon [] Hearing: Steel Barrel Reamer provided No [] Vision impaired: print augmentation [...] 30 tablet 11 ??? FreeStyle Sanjana 2 [place] Misc 1 each by Other route daily. [...] 5 ??? fluticasone propionate (Flonase) 50 mcg/actuation [place], Suspension 1 spray by Each Nare route [...] 09/07/2005 TDAP 04/09/2019 , 06/24/2011 Prescription Insurance: [facility] [id number] Assessment and Recommendations: 1. Diabetes Goals of [...] for the individual, but in general the [place] Diabetes Association recommends a fasting blood sugar [...] at the appointment and that [facility] is providing recommendations (summary located at top of note) for provider review and follow up. Julia Low, [facility] 11/16/21 documented in this encounter Plan of Treatment Upcoming Encounters Date Type Department Care Team (Late st Contact Info) Description 05/01/2024 11:20 AM EDT Appointment Mammography/[place] [address] Rodney Padilla MD [address] [place] [address] 05/01/2024 1:45 PM EDT Office [place] [address] Juanpablo Hernandez MD [facility] [place] [address] 05/23/2024 2:45 PM EST Clinical Support [facility] at [facility] [address] [place] [address] Julia Low [facility] 01/30/2025 1:30 PM EDT Laboratory Appointment [place] [facility] [place] [address] [place] [address] 01/30/2025 3:[address] [place] [address] Arturo Cordero MD [facility] DR [place] [address] 01/30/2025 4:15 PM EDT Office Visit Hematology [place] [address] Arturo Cordero MD [facility] DR [place] [address] documented as of this encounter Visit Diagnoses Diagnosis Type 2 diabetes mellitus without long-term current use of insulin documented in this encounter Care Teams Vice Principal Relationship Specialty Start Date End Date Luis E Narayan MD [facility] [place] [address] PCP - General Family Medicine 03/26/19 01/19/22 documented as of this encounter
--- OUTSIDE RECORDS SUMMARY | 2024-04-13 15:46 | XMS_ITS | Encounter Summary ---
Author Organization [facility] Address [facility] [place] [address] Care Team Providers Care Environmental Construction Engineer Name Role Phone Luis E Narayan MD Primary Care Provider +1- [phone] Reason for Visit * Reason Onset Date Comments Appointment 08/20/2021 Encounter Details Date Type Department Care Team (Late st Contact Info) Description 08/20/2021 Telephone Family Medicine at [facility] [address] [place] [address] Luis E Narayan MD [facility] [address] LIL[address] [place] [address] Appointment Social History Tobacco Use Types Packs/Day [...] Silvio Alonzo - 08/20/2021 9:12 AM EST [employer] Message sent to patient * Telephone Encounter - Dixon Billings - 08/20/2021 8:45 AM EST Message: Patient calling in regards to having their appointment for 08.20.21 rescheduled as soon aspossible. Patient states it said in her MyDH that it was changed to a telehealth visit and she received a message stating that it was changed. Financial Center Manager was unable to find any message and the appointment showed as Office Visit not telehealth. Patient is unable to make it and greeting card writer was unable to find appointment within timeframe patient was looking for Ask caller their first and last name and relationship to the patient: Alize Gramajo Best time to call back: Any Ok to leave a message: yes Ok to send Mobile Ads message: yes Offered Appointment: Yes MA/Nurse/Court Bailiff contacted via: Message: Yes Call: n/a Pager: n/a documented in this encounter Plan of Treatment Upcoming Encounters Date Type Department Care Team (Late st Contact Info) Description 05/01/2024 11:20 AM EDT Appointment Mammography/[place] [address] Rodney Padilla MD [address] [place] [address] 05/01/2024 1:45 PM EDT Office [place] [address] Juanpablo Hernandez MD [facility] [place] [address] 05/23/2024 2:45 PM EST Clinical Support Family Medicine at [facility] [address] [place] [address] Julia Low, [facility] 01/30/2025 1:30 PM EDT Laboratory Appointment Lab at [facility] [place] Oncology [address] [place] [address] 01/30/2025 3:[address] [place] [address] Arturo Cordero MD [facility] [address] HEM[place] [address] 01/30/2025 4:15 PM EDT Office Visit Hematology [place] [address] Arturo Cordero MD [facility] [address] [place] [address] documented as of this encounter Visit Diagnoses Not on filedocumented in this encounter Care Teams Environmental Construction Engineer Relationship Specialty Start Date End Date Luis E Narayan MD [facility] [address] [place] [address] PCP - General Family Medicine 03/26/19 01/19/22 documented as of this encounter
--- OUTSIDE RECORDS SUMMARY | 2024-04-13 15:46 | XMS_ITS | Encounter Summary ---
Author Organization [facility] Address [facility] [place] [address] Care Team Providers Care Process Control Manager Name Role Phone Luis E Narayan MD Primary Care Provider +1- [phone] Reason for Visit * Reason Comments Diabetes Encounter Details Date Type Department Care Team (Late st Contact Info) Description 10/26/2021 10:00 AM EDT Clinical Support Family Medicine at [facility] [address] [place] [address] Julia Lwo, [facility] Type 2 diabetes mellitus without [...] 1-2x daily\ ?? Sent new Rxs for [facility] CGM to review coverage Follow up plan: ?? Followup call in 2-4 weeks to review tolerance of Rybelsus, CGM coverage,SMBG/CGM data, and encourage lifestyle changes Subjective: Patient ID: Alize Gramajo is a 60 y.o. 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 Lunch: [place] with ham/turkey, Hungarian cheese, crisostomo, mustard with Doritos Dinner: Spaghetti [...] area transportation options [] Languages other than Guinean: Lead Section Supervisor services provided No [] Allowances for cultural diversity: meal plan will be tailored for cultural food shavon [] Hearing: Production Supervisor provided No [] Vision impaired: print augmentation [...] 5 ??? fluticasone propionate (Flonase) 50 mcg/actuation [place], Suspension 1 spray by Each Nare route [...] 30 tablet 3 ??? FreeStyle Sanjana 2 [place] Misc 1 each by Other route daily. [...] 09/07/2005 TDAP 04/09/2019 , 06/24/2011 Prescription Insurance: [facility] [id number] Assessment and Recommendations: 1. Diabetes Goals of [...] for the individual, but in general the [place] Diabetes Association recommends a fasting blood sugar [...] 1-2x daily\ ?? Sent new Rxs for [employer] CGM to review coverage Follow up plan: [...] 05/01/2024 11:20 AM EDT Appointment Mammography/[place] [address] Rodney Padilla MD [address] [place] [address] 05/01/2024 1:45 PM EDT [place] [address] Juanpablo Hernandez MD [facility] [place] [address] 05/23/2024 2:45 PM EST Clinical Support Family Medicine at [facility] [address] [place] [address] Julia Low, [facility] 01/30/2025 1:30 PM EDT Laboratory Appointment Lab at [facility] Hematology Oncology [address] [place] [address] 01/30/2025 3:[address] [place] [place] [address] Arturo Cordero MD [facility] DR HEMATOLOGY [place] [address] 01/30/2025 4:15 PM EDT Office Visit Hematology [place] [address] Arturo Cordero MD [facility] DR HEMATOLOGY [place] [address] documented as of this encounter Procedures Procedure [...] Primary documented in this encounter Care Teams Process Control Manager Relationship Specialty Start Date End Date Luis E Narayan MD [facility] [place] [address] PCP - General Family Medicine 03/26/19 01/19/22 documented as of this encounter
--- OUTSIDE RECORDS SUMMARY | 2024-04-13 15:46 | XMS_ITS | Encounter Summary ---
Author Organization [facility] Address [facility] [place] [address] Care Team Providers Care Talent Development Director Name Role Phone Luis E Narayan MD Primary Care Provider +1- [phone] Encounter Details Date Type Department Care Team (Late st Contact Info) Description 11/08/2021 Telephone Family Medicine at [facility] [address] [place] [address] Luis E Narayan MD [facility] DR [address] [place] [address] Social History Tobacco Use Types Packs/Day Years [...] 05/01/2024 11:20 AM EDT Appointment Mammography[place] [address] Rodney Padilla MD [address] [place] [place] [address] 05/01/2024 1:45 PM EDT Office [place] [address] Juanpablo Hernandez MD [facility] [place] [address] 05/23/2024 2:45 PM EST Clinical Support Family Medicine at [facility] [address] [place] [address] Julia Low RPH 01/30/2025 1:30 PM EDT Laboratory Appointment Lab at [facility] [place] [place] On[place] [address] [place] [address] 01/30/2025 3:[address] [place] [address] Arturo Cordero MD [facility] [place] [address] 01/30/2025 4:15 PM EDT Office Visit Hematology [place] [address] Arturo Cordero MD [facility] [place] [address] documented as of this encounter Visit Diagnoses Not on filedocumented in this encounter Care Teams Talent Development Director Relationship Specialty Start Date End Date Luis E Narayan MD [facility] [address] [place] [address] PCP - General Family Medicine 03/26/19 01/19/22 documented as of this encounter
--- OUTSIDE RECORDS SUMMARY | 2024-04-13 15:46 | XMS_ITS | Encounter Summary ---
Author Organization [facility] [place] [address] Care Team Providers Care Heat Treatment Technician Name Role Phone Luis E Narayan MD Primary Care Provider Reason for Referral * Diagnostic Test (Routine) - Closed Specialty Diagnoses / Procedures Referred By Contac t Referred To Contact Radiology Diagnoses Malignant melanoma of conjunctiva, left Malignant melanoma, unspecified site Procedures CT Neck Soft Tissue w Contrast (Generic) Leandra Lopes APRN [facility] DR [place] [address] [facility] [place] [address] Referral ID Status Reason Start Date Expiration Date V isits Requested Visits Authorized [id number] Closed Specialty Service Requested 12/23/2021 07/09/2022 1 1 * Diagnostic Test (Routine) - Closed Specialty Diagnoses / Procedures Referred By Contac t Referred To Contact Radiology Diagnoses Malignant melanoma of conjunctiva, left Malignant melanoma, unspecified site Procedures CT Chest Abdomen Pelvis w Contrast (Generic) Leandra Lopes APRN [facility] [address] [place] [address] [facility] [place] [address] Referral ID Status Reason Start Date Expiration Date V isits Requested Visits Authorized [id number] Closed Specialty Service Requested 12/23/2021 07/09/2022 1 1 Reason for Visit * Diagnostic Test (Routine) - Closed Specialty Diagnoses / Procedures Referred By Contchrissy t Referred To Contact Radiology Diagnoses Malignant melanoma of conjunctiva, left Malignant melanoma, unspecified site Procedures CT Chest Abdomen Pelvis w Contrast (Generic) Leandra Lopes APRN [facility] DR [place] [address] [facility] [place] [address] Referral ID Status Reason Start Date Expiration Date V isits Requested Visits Authorized [id number] Closed Specialty Service Requested 12/23/2021 07/09/2022 1 1 Encounter Details Date Type Department Care Team (Late st Contact Info) Description 12/23/2021 12:07 PM EDT - 12/23/2021 12:34 PM EDT Hospital [place] [address] Leandra Lopes APRN [facility] DR [place] [address] Malignant melanoma of conjunctiva, left; [...] each 11 12/10/2021 02/04/2023 FreeStyle Sanjana 2 [place] MiscIndications:diabetes mellitus 1 each by Other route [...] 10/01/2021 01/29/2022 fluticasone propionate (Flonase) 50 mcg/actuation [place], Suspension 1 spray by Each Nare route [...] 05/01/2024 11:20 AM EDT Appointment Mammography/[place] [address] Rodney Padilla MD [address] [place] [address] 05/01/2024 1:45 PM EDT Office [place] [address] Juanpablo Hernandez MD [facility] [place] [address] 05/23/2024 2:45 PM EST Clinical Support Family Medicine at [facility] [address] [place] [address] [place] Julia Prabhu, [facility] 01/30/2025 1:30 PM EDT Laboratory Appointment Lab at [facility] [place] On[place] [address] [place] [address] 01/30/2025 3:[address] [place] [address] Arturo Cordero MD [facility] [place] [address] 01/30/2025 4:15 PM EDT Office Visit Hematology [place] [address] Arturo Cordero MD [facility] [place] [address] documented as of this encounter Procedures Procedure [...] questions please contact the health child care centre manager that requested your imaging first. ? Narrative 12/24/2021 8:15 AM EDT EXAMINATION: CT [...] have questions please contactthe health child care centre manager that requested your imaging first. Leandra Lopes [...] questions please contact the health child care centre manager that requested your imaging first. ? Narrative 12/23/2021 3:09 PM EDT EXAMINATION: CT [...] have questions please contactthe health child care centre manager that requested your imaging first. Leandra Lopes APRN [facility] ORDERABLES documented in this encounter Visit [...] mLs documented in this encounter Care Teams Heat Treatment Technician Relationship Specialty Start Date End Date Luis E Narayan MD [facility] [address] [place] [address] PCP - General Family Medicine 03/26/19 01/19/22 documented as of this encounter
--- OUTSIDE RECORDS SUMMARY | 2024-04-13 15:46 | XMS_ITS | Encounter Summary ---
Author Organization [facility] Address [facility] [place] [address] Care Team Providers Care Crate Icer Name Role Phone Luis E Narayan MD Primary Care Provider +1- [phone] Reason for Visit * Reason Onset Date Comments Medication Refill 01/29/2022 Encounter Details Date Type Department Care Team (Late st Contact Info) Description 01/29/2022 Refill Family Medicine at [facility] [address] [place] [address] Luis E Narayan MD [facility] DR LILI [place] [address] Social History Tobacco Use Types Packs/Day Years [...] 05/01/2024 11:20 AM EDT Appointment Mammography/[place] [address] Rodney Padilla MD [address] [place] [address] 05/01/2024 1:45 PM EDT Office [place] [address] Juanpablo Hernandez MD [facility] [place] [address] 05/23/2024 2:45 PM EST Clinical Support Family Medicine at [facility] [address] [place] [address] Julia Low [facility] 01/30/2025 1:30 PM EDT Laboratory Appointment Lab at [facility] Hematology Oncology [address] [place] [address] 01/30/2025 3:[address] [place] [address] Arturo Cordero MD [facility] DR [place] [address] 01/30/2025 4:15 PM EDT Office Visit Hematology [place] [address] Arturo Cordero MD [facility] DR [place] [address] documented as of this encounter Visit Diagnoses Not on filedocumented in this encounter Care Teams Crate Icer Relationship Specialty Start Date End Date Luis E Narayan MD [facility] DR LILI WALKER-[facility] [place] [address] PCP - General Family Medicine 01/20/22 07/17/22 documented as of this encounter
--- OUTSIDE RECORDS SUMMARY | 2024-04-13 15:46 | XMS_ITS | Encounter Summary ---
Author Organization [facility] [address] Care Team Providers Care Order Builder Loader Name Role Phone Luis E Narayan MD Primary Care Provider +1- [phone] Encounter Details Date Type Department Care Team (Latest Contact Info) Description 12/23/2021 12:35 PM EDT - 12/23/2021 11:59 PM EDT Hospital Encounter Hematology [place] [address] Malignant melanoma of conjunctiva, left Discharge Disposition: [...] 1 each 12/10/2021 02/04/2023 FreeStyle Sanjana 2 [place] MiscIndications:diabetes mellitus 1 each by Other route [...] 10/01/2021 01/29/2022 fluticasone propionate (Flonase) 50 mcg/actuation [place], Suspension 1 spray by Each Nare route [...] AM EDT Appointment Mammography/[place] [address] Rodney Padilla MD [address] [place] [place] [address] 05/01/2024 1:45 PM EDT Office [place] [address] Juanpablo Hernandez MD [facility] [place] [address] 05/23/2024 2:45 PM EST Clinical Support Family Medicine at [facility] [address] [place] [address] Julia Low [facility] 01/30/2025 1:30 PM EDT Laboratory Appointment Lab at [facility] Hematology Oncology [address] [place] [phone] 01/30/2025 3:[address] [place] [address] Arturo Cordero MD [facility] DR HEMATOLOGY [place] [address] 01/30/2025 4:15 PM EDT Office Visit Hematology [place] [address] Arturo Cordero MD [facility] DR HEMATOLOGY [place] [address] documented as of this encounter Procedures Procedure [...] LABORATORY Neutrophil Absolute 4.80 1.70 - 6.10 x10(3)/[facility] LABORATORY Lymph % 27.4 % [facility] Lymphocytes Abs 2.1 0.9 - 3.2 x10(3)/[facility] LABORATORY Monocyte % 6.9 % [facility] Monocyte Abs 0.5 0.3 - 0.9 x10(3)/[facility] LABORATORY Eos % 1.7 % [facility] Eosinophils Abs 0.1 0.0 - 0.4 x10(3)/[facility] LABORATORY Basophil % 0.8 % [facility] Baso Absolute 0.1 0.0 - 0.1 x10(3)/[facility] LABORATORY Immature Gran % 0.50 % [facility] Comment: Immature granulocytes(IG's)percentage and absolute count will include metamyelocytes, myelocytes, and promyelocytes. Blood smears from CBCs yielding IG's will be scanned manually for concordance. If this scan disagrees with the automated IG or if promyelocytes are noted, a manual differential will be performed. Immature Gran Absolute 0.04 0.00 - 0.04 x10(3)/[facility] LABORATORY Blood 12/23/2021 12:4 5 PM EDT 12/23/2021 1:04 PM EDT Narrative Resulting Agency Comment Spec In Lab Leandra Lopes CAT OPERATOR HEMATOLOGY ORDERAB LES [facility] [place] [address] * (ABNORMAL) Hemogram (12/23/2021 12:45 PM EDT) White Blood Cell 7.7 4.0 - 9.5 x10(3)/mc L [facility] Red Blood Cell 4.53 4.00 - 5.21 x10(6)/mc L [facility] Hemoglobin 12.9 11.7 - 15.5 g/dL [facility] Hematocrit 39.6 35.7 - 45.8 % [facility] Mean Cell Volume 87.4 82.6 - 94.[address] [facility] Mean Cell Hemoglobin 28.5 27.1 - 32.[address] [facility] Mean Cell Hemoglobin Concentration 32.6 31.7 - 35.0 g/dL [facility] Platelet 387(H) 145 - 357 x10(3)/mc L [facility] RDW Standard Deviation 46.8(H) 37.0 - 46.[address] [facility] RDW coefficient of variation 14.5(H) 11.5 - 14.1 % [facility] Mean Platelet Volume 9.6 7.6 - 12.[address] [facility] NRBC% auto 0.0 % [facility] NRBC Absolute 0.000 0.000 - 0.000 x10(3)/mc L [facility] Blood 12/23/2021 12:4 5 PM EDT 12/23/2021 1:04 PM EDT Narrative Resulting Agency Comment Spec In Lab Leandra Lopes APRN HEMATOLOGY ORDERAB LES Performing Organization Address [facility]/ZIP Co de Phone Number [facility] [place] [address] * Lactate Dehydrogenase (12/23/2021 12:45 PM EDT) Lactate Dehydrogenase 219 110 - 220 unit/L [facility] Blood 12/23/2021 12:4 5 PM EDT 12/23/2021 1:04 PM EDT Narrative Resulting Agency Comment Spec In Lab Leandra Lopes APRN CHEMISTRY ORDERABL ES Performing Organization Address [facility] Co de Phone Number [facility] [place] [address] * (ABNORMAL) Comprehensive metabolic panel (non-fasting) (12/23/2021 12:45 PM EDT) Glucose 190 65 - 199 mg/dL [facility] Comment:Diabetes: >=200 mg/d L plus symptoms Blood Urea Nitrogen 13 8 - 18 mg/dL [facility] Creatinine 0.88 0.70 - 1.20 mg/dL [facility] Sodium 139 135 - 145 mmol/L [facility] Potassium 4.4 3.5 - 5.0 mmol/L [facility] Comment: Please note: ??Patients with WBC >100,000 may have falsely elevated Potassium levels. ??For accurate Potassium quantification in these patients send serum separator tube (gold top) for subsequent determinations. ??Contact the Clinical Chemistry Laboratory if there are any questions. Chloride 104 98 - 107 mmol/L [facility] Carbon Dioxide 25 22 - 31 mmol/L [facility] Anion Gap 10 5 - 15 mmol/L [facility] Calcium 9.5 8.5 - 10.5 mg/dL [facility] Protein, Total 6.7 6.1 - 8.0 g/dL [facility] Albumin 4.1 3.2 - 5.2 g/dL [facility] Aspartate Aminotransferase 29 0 - 30 unit/L [facility] Alanine Aminotransferase 35(H) 0 - 30 unit/L [facility] Alkaline Phosphatase 93 35 - 105 unit/L [facility] Bilirubin, Total 0.4 0.2 - 1.3 mg/dL [facility] Est Glomerular Filtration Rate 74 >=60 mL/min/1. 73 m?? [facility] Comment: This patient's estimated GFR [...] Lab Leandra Lopes APRN CHEMISTRY ORDERABL ES [facility] [place] [address] documented in this encounter Visit Diagnoses Diagnosis Malignant melanoma of conjunctiva, left documented in this encounter Care Teams Order Builder Loader Relationship Specialty Start Date End Date Luis E Narayan MD [facility] DR LIL[address] WALK[place] [address] PCP - General Family Medicine 03/26/19 01/19/22 documented as of this encounter
--- OUTSIDE RECORDS SUMMARY | 2024-04-13 15:46 | XMS_ITS | Encounter Summary ---
[place] [address] Care Team Providers Care Logistics Support Name Role Phone Luis E Narayan MD Primary Care Provider Reason for Referral * Diagnostic Test (Routine) - Closed Specialty Diagnoses / Procedures Referred By Gonzalez kumari Referred To Contact Gastroenterology Diagnoses Bloating Dyspepsia HBT - glucose - bloating Procedures Breath Hydrogen Test HBT - glucose - bloating Alejandra Pop APRN [address] [place] [address] [facility] Gastro [address] [place] [id number] Referral ID Status Reason Start Date Expiration Date V isits Requested Visits Authorized [id number] Closed Consult, Test & Treat 03/01/2022 03/01/2023 1 1 * Diagnostic Test (Routine) - Closed Specialty Diagnoses / Procedures Referred By Gonzalez kumari Referred To Contact Gastroenterology Diagnoses Bloating Dyspepsia Smartpill for nausea Procedures SmartPill Smartpill for nausea Alejandra Pop APRN [address] [place] [address] [facility] Gastro [address] [place] [id number] Referral ID Status Reason Start Date Expiration Date V isits Requested Visits Authorized [id number] Closed Consult, Test & Treat 03/01/2022 03/01/2023 1 1 Reason for Visit * Consultation (Routine) - Closed Specialty Diagnoses / Procedures Referred By Contac t Referred To Contact Gastroenterology Diagnoses NAFL (nonalcoholic fatty liver) /abd pain/bloating - see Luis E Saba MD [facility] [address] LILI WALKER[place] [address] [facility] [place]astro [address] [place] [address] Referral ID Status Reason Start Date Expiration Date V isits Requested Visits Authorized [id number] Closed Consult, Test & Treat 12/15/2021 12/15/2022 1 1 Encounter Details Date Type Department Care Team (Late st Contact Info) Description 03/01/2022 3:00 PM EDT Office Visit [place] [address] Alejandra Pop, WAREHOUSE STOCK CLERK [address] [place] [address] Bloating; Dyspepsia Social History Tobacco [...] desk 3L on the main campus of [facility] in [place] or may report to [facility] 8. Smart pill. You will hear from our production control scheduler to set this up once an appointment becomes available. You should hear from someone within one week. If not please call us. If insurance doesn't cover the smart pill, I will ask you to do a gastric emptying scan instead. We will let you know. Please call radiology at to schedule. 9. Hydrogen breath test. You will hear from our production control scheduler to set this up once an appointment [...] spacer 1 each ??? FreeStyle Sanjana 2 [place] Misc 1 each by Other route daily. Indications: diabetes mellitus 1 each 0 ??? FreeStyle Sanjana 2 Sensor Kit 1 each by Other route every 14 days. Indications: diabetes mellitus 2 kit 0 ??? FreeStyle Lancets 28 gauge Misc 1 each by Other route 3 times daily. Indications: diabetes mellitus 100 each 11 ??? fluticasone propionate (Flonase) 50 mcg/actuation [place], Suspension 1 spray by Each Nare route [...] antithrombotic long-term use, Arthritis, Asthma, Atherosclerosis of [place] coronary artery of [place] heart with angina pectoris (10/09/2007), CAD (coronary [...] Coronary angioplasty with stent; Lap, Partial Nephrectomy (99679) (Left, 06/28/2019); Excis Cornea Lesn (78119) (Left, 05/14/2020); Destr Corneal Lesn, Cryo, Photo, Therm (53037) (Left, 05/14/2020); PlaceAmniotic Membrane Ocular Surface;Single Layer Sutured (01955) (Left, 05/14/2020); laser surgery; andcryopexy (Left). Family [...] after testing is complete Alejandra Pop [place] [facility] [place] [address] documented in this encounter Plan of Treatment Upcoming Encounters Date Type Department Care Team (Late st Contact Info) Description 05/01/2024 11:20 AM EDT Appointment Mammography/[place] [address] Rodney Padilla MD [address] [place] [address] 05/01/2024 1:45 PM EDT Office [place] [address] Juanpablo Hernandez MD [facility] [place] [address] 05/23/2024 2:45 PM EST Clinical Support Family Medicine at [facility] [address] [place] [address] Julia Low [facility] 01/30/2025 1:30 PM EDT Laboratory Appointment Lab at [facility] Hematology Oncology [address] [place] [address] 01/30/2025 3:[address] [place] [address] Arturo Cordero MD [facility] DR HEMATOLOGY [place] [address] 01/30/2025 4:15 PM EDT Office Visit Hematology [place] [address] Arturo Cordero MD [facility] DR HEMATOLOGY [place] [address] Scheduled Orders Name Type Priority Associated Diagnoses Orde r Schedule SmartPill GI Routine Bloating Dyspepsia Expected: 03/01/2022 (Approximate), Expires: 08/31/2022 Breath Hydrogen Test GI Routine Bloating Dyspepsia Expected: 03/01/2022 (Approximate), Expires: 08/31/2022 documented as of this encounter Visit Diagnoses Diagnosis Bloating Flatulence, eructation, and gas pain Dyspepsia Dyspepsia and other specified disorders of function of stomach documented in this encounter Care Teams Logistics Support Relationship Specialty Start Date End Date Luis E Narayan MD [facility] [address] LIL[address] WALKER[place] [address] PCP - General Family Medicine 01/20/22 07/17/22 documented as of this encounter
--- OUTSIDE RECORDS SUMMARY | 2024-04-13 15:46 | XMS_ITS | Encounter Summary ---
[place] [address] Care Team Providers Care Hot Mix Operator Name Role Phone Luis E Narayan MD Primary Care Provider +1- [phone] Encounter Details Date Type Department Care Team (Late st Contact Info) Description 12/14/2021 Telephone [place] [address] Gris Galloway, RN Social History Tobacco Use [...] EGD and colonoscopy performed last year at [facility]. Was seen in [facility] ED recently and PPI changed from Omeprazole [...] 05/01/2024 11:20 AM EDT Appointment Mammography/[place] [address] Rodney Padilla MD [address] [place] [address] 05/01/2024 1:45 PM EDT Office [place] [address] Juanpablo Hernandez MD [facility] [place] [place] [address] 05/23/2024 2:45 PM EST Clinical Support Family Medicine at [place] [address] [place] [address] Julia Low [facility] 01/30/2025 1:30 PM EDT Laboratory Appointment Lab at [facility] Hematology Oncology [address] [place] [address] 01/30/2025 3:[address] [place] [address] Arturo Cordero MD [facility] [place] [address] 01/30/2025 4:15 PM EDT Office Visit Hematology [place] [address] Arturo Cordero MD [facility] [place] [address] documented as of this encounter Visit Diagnoses Not on filedocumented in this encounter Care Teams Hot Mix Operator Relationship Specialty Start Date End Date Luis E Narayan MD [facility] DR LIL[address] [place] [address] PCP - General Family Medicine 03/26/19 01/19/22 documented as of this encounter
--- OUTSIDE RECORDS SUMMARY | 2024-04-13 15:46 | XMS_ITS | Encounter Summary ---
Author Organization [facility] Address [place] [address] Care Team Providers Care Roller Varnisher Name Role Phone Rodney Padilla MD Primary Care Provider +1- [phone] Reason for Visit * Reason Onset Date Comments Medication Refill 10/11/2021 Encounter Details Date Type Department Care Team (Late st Contact Info) Description 10/11/2021 Refill Family Medicine at [facility] [address] [place] [address] Luis E Narayan MD [facility] [address] LIL[place] [address] Type 2 diabetes mellitus without long-term current [...] 11:20 AM EDT Appointment Mammography/[place] [address] Rodney Padilla MD [address] [place] [address] 05/01/2024 1:45 PM EDT Office [place] [address] Juanpablo Hernandez MD [facility] [place] [address] 05/23/2024 2:45 PM EST Clinical Support [facility] [address] [place] [address] Julia Low, [facility] 01/30/2025 1:30 PM EDT Laboratory Appointment Lab at [facility] Hematology Oncology [address] [place] [address] 01/30/2025 3:[address] [place] [address] Arturo Cordero MD [facility] [place] [address] 01/30/2025 4:15 PM EDT Office Visit Hematology [place] [address] Arturo Cordero MD [facility] [place] [address] documented as of this encounter Visit Diagnoses Diagnosis Type 2 diabetes mellitus without long-term current use of insulin documented in this encounter Care Teams Roller Varnisher Relationship Specialty Start Date End Date Rodney Padilla MD [address] [place] [address] PCP - General 07/18/22 04/09/24 documented as of this encounter
--- OUTSIDE RECORDS SUMMARY | 2024-04-13 15:46 | XMS_ITS | Encounter Summary ---
Author Organization [facility] Address [facility] [place] [address] Care Team Providers Care Occupational Therapy Specialist Name Role Phone Daryn Garrett MD Primary Care Provider Reason for Visit * Reason Onset Date Comments Medication Refill 09/08/2021 Encounter Details Date Type Department Care Team (Late st Contact Info) Description 09/08/2021 Refill Family Medicine at [facility] [address] [place] [address] Luis E Narayan MD [facility] DR LILI [place] [address] Social History Tobacco Use Types Packs/Day Years [...] 05/01/2024 11:20 AM EDT Appointment Mammography/[place] [address] Rodney Padilla MD [address] [place] [address] 05/01/2024 1:45 PM EDT Office [place] [address] Juanpablo Hernandez MD [facility] [place] [place] [address] 05/23/2024 2:45 PM EST Clinical Support Family Medicine at [facility] [address] [place] [address] Julia Low [facility] 01/30/2025 1:30 PM EDT Laboratory Appointment Lab at [facility] Hematology Oncology [address] [place] [address] 01/30/2025 3:[address] [place] [address] Arturo Cordero MD [facility] [place] [address] 01/30/2025 4:15 PM EDT Office Visit Hematology [place] [address] Arturo Cordero MD [facility] DR [place] [address] documented as of this encounter Visit Diagnoses Not on filedocumented in this encounter Care Teams Occupational Therapy Specialist Relationship Specialty Start Date End Date Daryn Garrett MD [facility] DR LILI [place] [address] PCP - General 04/10/24 documented as of this encounter
--- OUTSIDE RECORDS SUMMARY | 2024-04-13 15:46 | XMS_ITS | Encounter Summary ---
Author Organization [facility] [place] [address] Care Team Providers Care Fish Hatchery Inspector Name Role Phone Luis E Narayan MD Primary Care Provider [phone]- [phone] Reason for Referral * Consultation (Routine) - Closed Specialty Diagnoses / Procedures Referred By Gonzalez kumari Referred To Contact Weight and Wellness Diagnoses Diarrhea, unspecified type Obesity, unspecified classification, unspecified obesity type, unspecified whether serious comorbidity present Kelsey Pacheco DO [address] [place] [address] [address] [place] [address] [facility] [address] [place] [address] Referral ID Status Reason Start Date Expiration Date V isits Requested Visits Authorized [id number] Closed Consult, Test & Treat PCP Updated and/or Approved 01/20/2022 01/20/2023 1 1 Encounter Details Date Type Department Care Team (Late st Contact Info) Description 01/20/2022 Transcribe Orders eDH Incoming Referrals [phone] Kelsey Pacheco DO [address] [place] [address] [address] [place], [place] [phone] Diarrhea, unspecified type; Obesity, unspecified classification, unspecified [...] 05/01/2024 11:20 AM EDT Appointment Mammography[place] [address] Rodney Padilla MD [address] [place] [address] 05/01/2024 1:45 PM EDT Office [place] [address] Juanpablo Hernandez MD [facility] [place] [address] 05/23/2024 2:45 PM EST Clinical Support Family Medicine at [facility] [address] [place] [address] Julia Low [facility] 01/30/2025 1:30 PM EDT Laboratory Appointment Lab at [facility] Hematology Oncology [address] [place] [address] 01/30/2025 3:[address] [place] [address] Arturo Cordero MD [facility] DR [place] [address] 01/30/2025 4:15 PM EDT Office Visit [place]ematology [place] [address] Arturo Cordero MD [facility] DR [place] [address] Scheduled Referrals Name Type Priority Associated Diagnoses Orde r Schedule Referral to [facility] Outpatient Referral Routine Diarrhea, unspecified type Obesity, unspecified classification, unspecified obesity type, unspecified whether serious comorbidity present Ordered: 01/20/2022 documented as of this encounter Visit Diagnoses Diagnosis Diarrhea, unspecified type Obesity, unspecified classification, unspecified obesity type, unspecified whether serious comorbidity present documented in this encounter Care Teams Fish Hatchery Inspector Relationship Specialty Start Date End Date Luis E Narayan MD [facility] [address] [place] [address] PCP - General Family Medicine 01/20/22 07/17/22 documented as of this encounter
--- OUTSIDE RECORDS SUMMARY | 2024-04-13 15:46 | XMS_ITS | Encounter Summary ---
[place] [address] Care Team Providers Care Offal Worker Name Role Phone Luis E Narayan MD Primary Care Provider Reason for Referral * Diagnostic Test (Routine) - Closed Specialty Diagnoses / Procedures Referred By Contac t Referred To Contact Radiology Diagnoses Malignant melanoma of conjunctiva, left Procedures CT Chest Abdomen Pelvis w Contrast (Generic) Leandra Black APRN [facility] [address] [place] [address] [facility] [place] [address] Referral ID Status Reason Start Date Expiration Date V isits Requested Visits Authorized [id number] Closed Specialty Service Requested 12/24/2021 06/25/2023 1 1 * Diagnostic Test (Routine) - Closed Specialty Diagnoses / Procedures Referred By Contac t Referred To Contact Radiology Diagnoses Malignant melanoma of conjunctiva, left Procedures CT Neck Soft Tissue w Contrast (Generic) Leandra Black APRN [facility] [address] [place] [address] [facility] [place] [address] Referral ID Status Reason Start Date Expiration Date V isits Requested Visits Authorized [id number] Closed Specialty Service Requested 12/24/2021 06/25/2023 1 1 Reason for Visit * Reason Comments Follow-up Encounter Details Date Type Department Care Team (Late st Contact Info) Description 12/23/2021 3:15 PM EDT Office Visit Hematology [place] [address] Arturo Cordero MD [facility] H[place] [address] Leandra Black APRN [facility] [address] [place] [address] Malignant melanoma of conjunctiva, left; History of [...] from the original note were not included. [facility] FOLLOW UP NOTE REFERING PHYSICIAN: Dr. [...] management - fall 2018: saw a new practice manager and was referred to Dr. 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 Medina - 03/31/2020: saw her practice manager Dr. Hernandez and was noted to [...] no evidence of metastatic disease HPI: Patience Gramajo is a 61 y.o. female with [...] uses inhalerswith good effect ??? Atherosclerosis of [place] coronary artery of [place] heart with angina pectoris 10/09/2007 History of [...] performed by Juanpablo Hernandez MD at [facility] ??? PRO EXCIS CORNEA LESN Left 05/14/2020 EXCISION OF LESION, CORNEA, EXCEPT PTERYGIUM (WRVU 7.5) performed by Juanpablo Hernandez MD at [facility] ??? PRO LAP, PARTIAL NEPHRECTOMY Left 06/28/2019 LAPAROSCOPY, PARTIAL NEPHRECTOMY, ROBOTIC ASSIST (WRVU 27.41) performed by Josseline Medina MD at [facility] OR ??? PRO PLACE AMNIOTIC MEMBRANE OCULAR SURFACE;SINGLE LAYER SUTURED Left 05/14/2020 PLACEMENT OF AMNIOTIC MEMBRANE ON THE OCULAR SURFACE,SINGLE LAYER,SUTURED (WRVU 2.5) performed by Juanpablo Hernandez MD at 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 o Sun Exposure: Use broad spectrum, 30 SPF or higher, water resistant sunscreen with reapplication every 2 hours OR SPF clothing and limit your amount of direct sun exposure when possible. o Regular skin and lymph node self-examination should be performed. Please report any new lesions, lumps or bumps of concern to your fitting room maintenance mechanic or oncology team. ? You should be [...] new symptoms or concerns. Leandra Black DNP, SUPERVISOR ASSEMBLY STOCK Return in 3 mos for stand alone US RTC in 6 mos with labs, clinic appointment and CT scan documented in this encounter Plan of Treatment Upcoming Encounters Date Type Department Care Team (Late st Contact Info) Description 05/01/2024 11:20 AM EDT Appointment Mammography/[place] [address] Rodney Padilla MD [address] [place] [place] [address] 05/01/2024 1:45 PM EDT Office [place] [address] Juanpablo Hernandez MD [facility] [place] [address] 05/23/2024 2:45 PM EST Clinical Support Family Medicine at [facility] [address] [place] [address] Julia Low [facility] 01/30/2025 1:30 PM EDT Laboratory Appointment Lab at [facility] Hematology Oncology [address] [place] [address] 01/30/2025 3:[address] [place] [address] Arturo Cordero MD [facility] [place] [address] 01/30/2025 4:15 PM EDT Office Visit [place]ology [place] [address] Arturo Codrero MD [facility] [address] [place] [address] documented as of this encounter Results * [...] who have questions please contact the health menagerie caretaker that requested your imaging first. ? Narrative [...] patients who have questions please contactthe health menagerie caretaker that requested your imaging first. Leandra Black APRN IMG CT ORDERABLES * CT Neck [...] who have questions please contact the health menagerie caretaker that requested your imaging first. ? Electronically signed by: Chuy Delgado MD, [facility] ([phone]), at 06/24/2022 11:34 AM Narrative 06/24/2022 11:34 [...] patients who have questions please contactthe health menagerie caretaker that requested your imaging first. Electronically signed by: Chuy Delgado MD, [facility]([phone]), at 06/24/2022 11:34 AM Leandra Black APRN IMG CT ORDERABLES [...] PM Electronically signed by: Roland Izaguirre MD, [facility] ([phone]), at 03/21/2022 1:56 PM Thank you for letting us participate in the care of this patient. If you are a health care provider and have any questions regarding this report, please contact the number above. For patients who have questions, please contact the health menagerie caretaker that requested your imaging first. ? Roland Izaguirre, Staff Physician Electronically Signed Final Report ?? 03/21/2022 02:04 pm Narrative 03/21/2022 2:05 PM EDT Ultrasound Lymph Node ? (Signed Final 03/21/2022 02:04 pm) Report PATIENT INFO: ID #: ? [id number] ?: ??[birth year] (61 yrs)(F) Name: ? PATIENCE Tran JOSSELINE ? Visit Date: 03/21/2022 01:33 pm PERFORMED BY: Performed By: ? Stephany Pittman RDMS Attending: ?Dmitriy COLVIN, Roland Fung Resident: ? Rojelio COLVIN, Gia Davaols Referred By: ?LEANDRA BLACK Location: ? [place] SERVICE(S) PROVIDED: USTN - Soft Tissue Neck or Head - [id number] ? [id number] INDICATIONS: History of left eye conjunctival melanoma s/p resection, [facility] imaging of left neck [place] --------- FINDINGS: --------- Title: ? Ultrasound Lymph Node Report Findings: ?Several visualized lymph nodes, largest measures ?1.6 cm left level 2. Procedure Note Roland Izaguirre MD - 03/21/2022 Ultrasound Lymph Node (Signed Final 03/21/2022 02:04 pm) Report PATIENT INFO: ID #: [id number] : 58 (61 yrs)(F) Name: PATIENCE Tran JOSSELINE Visit Date: 03/21/2022 01:33 pm PERFORMED BY: Performed By: Stephany Pittman RDMS Attending: Dmitriy COLVIN, Roland Fung Resident: Gia Serrato MD Referred By: LEANDRA BLACK Location: [place] SERVICE(S) PROVIDED: USTN - Soft Tissue Neck or Head - [id number] INDICATIONS: History of left eye conjunctival melanoma [...] PM Electronically signed by: Roland Izaguirre MD, [facility] ([phone]), at 03/21/2022 1:56 PM Thank you for letting us participate in the care of this patient. If you are a health care provider and have any questions regarding this report, please contact the number above. For patients who have questions, please contact the health menagerie caretaker that requested your imaging first. Roland Izaguirre, Staff Physician Electronically Signed Final Report 03/21/2022 02:04 pm Leanrda Black SUPERVISOR ASSEMBLY STOCK IMG US GEN ORDERAB LES * Lactate Dehydrogenase (12/23/2021 12:45 PM EDT) Lactate Dehydrogenase 219 110 - 220 unit/L [facility] Blood 12/23/2021 12:4 5 PM EDT 12/23/2021 1:04 PM EDT Narrative Resulting Agency Comment Spec In Lab Leandra Chelsea Black APRN CHEMISTRY ORDERABL ES [facility] [place] [address] * (ABNORMAL) Comprehensive metabolic panel (non-fasting) (12/23/2021 12:45 PM EDT) Glucose 190 65 - 199 mg/dL [facility] Comment:Diabetes: >=200 mg/d L plus symptoms Blood Urea Nitrogen 13 8 - 18 mg/dL [facility] Creatinine 0.88 0.70 - 1.20 mg/dL [facility] Sodium 139 135 - 145 mmol/L [facility] Potassium 4.4 3.5 - 5.0 mmol/L [facility] Comment: Please note: ??Patients with WBC >100,000 may have falsely elevated Potassium levels. ??For accurate Potassium quantification in these patients send serum separator tube (gold top) for subsequent determinations. ??Contact the Clinical Chemistry Laboratory if there are any questions. Chloride 104 98 - 107 mmol/L [facility] Carbon Dioxide 25 22 - 31 mmol/L [facility] Anion Gap 10 5 - 15 mmol/L [facility] Calcium 9.5 8.5 - 10.5 mg/dL [facility] Protein, Total 6.7 6.1 - 8.0 g/dL [facility] Albumin 4.1 3.2 - 5.2 g/dL [facility] Aspartate Aminotransferase 29 0 - 30 unit/L [facility] Alanine Aminotransferase 35(H) 0 - 30 unit/L [facility] Alkaline Phosphatase 93 35 - 105 unit/L [facility] Bilirubin, Total 0.4 0.2 - 1.3 mg/dL [facility] Est Glomerular Filtration Rate 74 >=60 mL/min/1. 73 m?? [facility] Comment: This patient's estimated [...] Lab Leandra Black APRN CHEMISTRY ORDERABL ES [facility] [place] [address] documented in this encounter Visit Diagnoses Diagnosis Malignant melanoma of conjunctiva, left History of renal cell cancer Malignant melanoma of conjunctiva, left Malignant melanoma of conjunctiva, left documented in this encounter Care Teams Offal Worker Relationship Specialty Start Date End Date Luis E Narayan MD [facility] [address] PCP - General Family Medicine 03/26/19 01/19/22 documented as of this encounter
--- OUTSIDE RECORDS SUMMARY | 2024-04-13 15:46 | XMS_ITS | Encounter Summary ---
Author Organization [facility] Address [facility] [place] [address] Care Team Providers Care Beaming Inspector Name Role Phone Daryn Garrett MD Primary Care Provider Encounter Details Date Type Department Care Team (Late st Contact Info) Description 09/10/2021 Refill Family Medicine at [facility] [address] [place] [address] Luis E Narayan MD [facility] [address] [facility] [address] Social History Tobacco Use Types Packs/Day Years [...] 05/01/2024 11:20 AM EDT Appointment Mammography/[place] [address] Rodney Padilla MD [address] [place] [place] [address] 05/01/2024 1:45 PM EDT Office [place] [address] Juanpablo Hernandez MD [facility] [place] [address] 05/23/2024 2:45 PM EST Clinical Support Family Medicine at [facility] [address] [place] [address] Julia Low Bacilio 01/30/2025 1:30 PM EDT Laboratory Appointment Lab at [facility] Hematology Oncology [address] [place] [address] 01/30/2025 3:[address] [place] [address] Arturo Cordero MD [facility] HEMATOLOGY [place] [address] 01/30/2025 4:15 PM EDT Office Visit Hematology [place] [address] Arturo Cordero MD [facility] [address] HEMATOLOGY [place] [address] documented as of this encounter Visit Diagnoses Not on filedocumented in this encounter Care Teams Beaming Inspector Relationship Specialty Start Date End Date Daryn Garrett MD [facility] LILI [place]EV[facility] [address] PCP - General 04/10/24 documented as of this encounter
--- OUTSIDE RECORDS SUMMARY | 2024-04-13 15:46 | XMS_ITS | Encounter Summary ---
Author Organization [facility] [place] [address] Care Team Providers Care Serologist Name Role Phone Luis E Narayan MD Primary Care Provider +1- [phone] Reason for Visit * Reason Onset Date Comments Medication Refill 12/10/2021 Encounter Details Date Type Department Care Team (Late st Contact Info) Description 12/10/2021 Refill Family Medicine at [facility] [address] [place] [address] Bereket Latham PA [facility] [place] [address] Essential hypertension Social History Tobacco Use Types [...] 05/01/2024 11:20 AM EDT Appointment Mammography/[place] [address] Rodney Padilla MD [address] [place] [address] 05/01/2024 1:45 PM EDT [place] [address] Juanpablo Hernandez MD [facility] [place] [address] 05/23/2024 2:45 PM EST Clinical Support Family Medicine at [facility] [address] [place] [address] Julia Low [facility] 01/30/2025 1:30 PM EDT Laboratory Appointment Lab at [facility] Hematology Oncology [address] [place] [address] 01/30/2025 3:[address] [place] [place] [address] Artuor Cordero MD [facility] HEMATOLOGY [place] [address] 01/30/2025 4:15 PM EDT Office Visit [place]ology [place] [address] Arturo Cordero MD [facility] HEMATOLOGY [place] [address] documented as of this encounter Visit Diagnoses Diagnosis Essential hypertension Unspecified essential hypertension documented in this encounter Care Teams Serologist Relationship Specialty Start Date End Date Luis E Narayan MD [facility] [address] [place] [address] PCP - General Family Medicine 03/26/19 01/19/22 documented as of this encounter
--- OUTSIDE RECORDS SUMMARY | 2024-04-13 15:46 | XMS_ITS | Encounter Summary ---
Author Organization [facility] Address [facility] [place] [address] Care Team Providers Care Foundry Patternmaker Name Role Phone Luis E Narayan MD Primary Care Provider Reason for Visit * Reason Comments Melanoma OS Encounter Details Date Type Department Care Team (Late st Contact Info) Description 02/04/2022 3:30 PM EDT [place] [address] Juanpablo Hernandez MD [facility] [place] [address] Malignant melanoma of conjunctiva, left Social History [...] 05/01/2024 11:20 AM EDT Appointment Mammography/[place] [address] Rodney Padilla MD [address] [place] [place] [address] 05/01/2024 1:45 PM EDT [place] [address] Juanpablo Henrandez MD [facility] [place] [address] 05/23/2024 2:45 PM EST Clinical Support Family Medicine at [facility] [address] [place] [address] Julia Low, [facility] 01/30/2025 1:30 PM EDT Laboratory Appointment Lab at [facility] Hematology Oncology [address] [place] [address] 01/30/2025 3:[address] [place] [place] [address] Arturo Cordero MD [facility] DR [place] [address] 01/30/2025 4:15 PM EDT Office Visit [place]ology [place] [address] Arturo Cordero MD [facility] DR [place] [address] documented as of this encounter Visit Diagnoses Diagnosis Malignant melanoma of conjunctiva, left documented in this encounter Care Teams Foundry Patternmaker Relationship Specialty Start Date End Date Luis E Narayan MD [facility] [address] [place] [address] PCP - General Family Medicine 01/20/22 07/17/22 documented as of this encounter
--- OUTSIDE RECORDS SUMMARY | 2024-04-13 15:46 | XMS_ITS | Encounter Summary ---
Author Organization [place] [address] Care Team Providers Care Brake Engineer Name Role Phone Luis E Narayan MD Primary Care Provider +1- [phone] Encounter Details Date Type Department Care Team (Latest Contact Info) Description 03/03/2022 2:03 PM EDT - 03/03/2022 11:59 PM EDT Hospital [place] [address] Discharge Disposition: Home Social History Tobacco Use [...] 1 each 12/10/2021 02/04/2023 FreeStyle Sanjana 2 [place] MiscIndications:diabetes mellitus 1 each by Other route daily. Indications: diabetes mellitus 1 each 10/26/2021 01/23/2023 FreeStyle Sanjana 2 Sensor KitIndications:diabetes mellitus 1 each by Other route every 14 days. Indications: diabetes mellitus 2 kit 10/26/2021 01/23/2023 FreeStyle Lancets 28 gauge MiscIndications:diabetes mellitus 1 each by Other route 3 times daily. Indications: diabetes mellitus 100 each 11 10/11/2021 06/16/2022 fluticasone propionate (Flonase) 50 mcg/actuation [place], Suspension 1 spray by Each Nare route [...] glycoL (Miralax) 17 gram Powder in PacketIndications:Juddi patimaryam, unspecified constipation type Take 17 g by [...] 11:20 AM EDT Appointment Mammography/[place] [address] Rodney Padilla MD [address] [facility] [place], [place] [address] 05/01/2024 1:45 PM EDT Office Visit [place] [address] Juanpablo Hernandez MD [facility] [place] [address] 05/23/2024 2:45 PM EST Clinical Support Family Medicine at [facility] [address] [place] [address] Julia Low RPH 01/30/2025 1:30 PM EDT Laboratory Appointment Lab at [facility] Hematology Oncology [address] [place] [phone] 01/30/2025 3:[address] [place] [address] Arturo oCrdero MD [facility] HEMATOLOGY [place] [address] 01/30/2025 4:15 PM EDT Office Visit Hematology [place] [address] Arturo Cordero MD [facility] HEMATOLOGY [place] [address] documented as of this encounter Visit Diagnoses Not on filedocumented in this encounter Care Teams Brake Engineer Relationship Specialty Start Date End Date Luis E Narayan MD [facility] [address]-[place] [address] PCP - General Family Medicine 01/20/22 07/17/22 documented as of this encounter
--- OUTSIDE RECORDS SUMMARY | 2024-04-13 15:46 | XMS_ITS | Encounter Summary ---
Author Organization [facility] [place] [address] Care Team Providers Care Proteomics Scientist Name Role Phone Luis E Narayan MD Primary Care Provider [phone]- [phone] Encounter Details Date Type Department Care Team (Latest Contact Info) Description 03/06/2022 2:02 PM EDT - 03/06/2022 11:59 PM EDT Hospital [place] [address] Bloating; Dyspepsia Discharge Disposition: Home Social History [...] each 11 12/10/2021 02/04/2023 FreeStyle Sanjana 2 [place] MiscIndications:diabetes mellitus 1 each by Other route daily. Indications: diabetes mellitus 1 each 10/26/2021 01/23/2023 FreeStyle Sanjana 2 Sensor KitIndications:diabetes mellitus 1 each by Other route every 14 days. Indications: diabetes mellitus 2 kit 10/26/2021 01/23/2023 FreeStyle Lancets 28 gauge MiscIndications:diabetes mellitus 1 each by Other route 3 times daily. Indications: diabetes mellitus 100 each 11 10/11/2021 06/16/2022 fluticasone propionate (Flonase) 50 mcg/actuation [place], Suspension 1 spray by Each Nare route [...] 05/01/2024 11:20 AM EDT Appointment Mammography/[place] [address] Rodney Padilla MD [address] [place] [address] 05/01/2024 1:45 PM EDT Office [place] [address] Juanpablo Hernandez MD [facility] [place] [address] 05/23/2024 2:45 PM EST Clinical Support Family Medicine at [facility] [address] [place] [address] Julia Low RPH 01/30/2025 1:30 PM EDT Laboratory Appointment Lab at [facility] Hematology Oncology [address] [place] [address] 01/30/2025 3:[address] [place] [address] Arturo Cordero MD [facility] DR [place] [address] 01/30/2025 4:15 PM EDT Office Visit Hematology [place] [address] Arturo Cordeor MD [facility] [address] [place] [address] documented as of this encounter Procedures Procedure Name Priority Date/Time Associated Diagnosis Comments CRYPTOSPORIDIUM OOCYST ANTIGEN ([facility]/CGP/APD) Routine 03/07/2022 9:37 AM EDT Bloating Dyspepsia HC GIARDIA ANTIGEN ELOY METHOD Routine 03/07/2022 9:37 AM EDT Bloating Dyspepsia GIARDIA ANTIGEN ([facility]/CGP/APD/NLH) Routine 03/07/2022 9:37 AM EDT Bloating Dyspepsia documented in this encounter Results * Cryptosporidium Oocyst Antigen ([facility]/CGP/APD) (03/07/2022 9:37 AM EDT) Cryptosporidium Antigen Negative Negative [facility] Stool 03/07/2022 9:37 AM EDT 03/07/2022 2:21 PM EDT Narrative Resulting Agency Comment Spec In Lab Alejandra Pop WHEEL INSTALLER MICROBIOLOGY - G ENERAL ORDERABLES [facility] [place] [address] * Giardia antigen ([facility]/CGP/APD/NLH) (03/07/2022 9:37 AM EDT) Giardia Antigen Negative Negative [facility] Comment:Examination for othe r intestinal parasites requires foreign travel history. Stool 03/07/2022 9:37 AM EDT 03/07/2022 2:21 PM EDT Narrative Resulting Agency Comment Spec In Lab Alejandra Sal Donn WHEEL INSTALLER MICROBIOLOGY - G ENERAL ORDERABLES [facility] [place] [address] documented in this encounter Visit Diagnoses Diagnosis Bloating Flatulence, eructation, and gas pain Dyspepsia Dyspepsia and other specified disorders of function of stomach documented in this encounter Care Teams Proteomics Scientist Relationship Specialty Start Date End Date Luis E Narayan MD [facility] [address] [place] [id number] PCP - General Family Medicine 01/20/22 07/17/22 documented as of this encounter
--- OUTSIDE RECORDS SUMMARY | 2024-04-13 15:46 | XMS_ITS | Encounter Summary ---
Author Organization Formerly [facility] Address [facility] [place] [address] Care Team Providers Care Byproduct Engineer Name Role Phone Luis E Narayan MD Primary Care Provider [phone]- [phone] Reason for Visit * Reason Onset Date Comments Medication Refill 02/11/2022 Encounter Details Date Type Department Care Team (Late st Contact Info) Description 02/11/2022 Refill Family Medicine at [facility] [address] [place] [phone] Luis E Narayan MD [facility] DR LIL[address] [place] [address] Type 2 diabetes mellitus without long-term current [...] 05/01/2024 11:20 AM EDT Appointment Mammography/[place] [phone] Rodney Padilla MD [address] [facility] [place], [place] [phone] 05/01/2024 1:45 PM EDT Office [place] [phone] Juanpablo Hernandez MD [facility] [place] [address] 05/23/2024 2:45 PM EST Clinical Support Family Medicine at [facility] [address] [place] [phone] Julia Low Bacilio 01/30/2025 1:30 PM EDT Laboratory Appointment Lab at [facility] Hematology Oncology [address] [place] [address] [id number] 01/30/2025 3:[address] [place] [address] Arturo Cordero MD [facility] [place] [address] 01/30/2025 4:15 PM EDT Office Visit Hematology [place] [address] Arturo Cordero MD [facility] [place] [address] documented as of this encounter Visit Diagnoses Diagnosis Type 2 diabetes mellitus without long-term current use of insulin documented in this encounter Care Teams Byproduct Engineer Relationship Specialty Start Date End Date Luis E Narayan MD [facility] [address] [place] [address] PCP - General Family Medicine 01/20/22 07/17/22 documented as of this encounter
--- OUTSIDE RECORDS SUMMARY | 2024-04-13 15:46 | XMS_ITS | Encounter Summary ---
Author Organization [facility] Address [facility] [place] [address] Care Team Providers Care Steam Finisher Name Role Phone Luis E Narayan MD Primary Care Provider [phone]- [phone] Reason for Visit * Reason Comments Diabetes Encounter Details Date Type Department Care Team (Late st Contact Info) Description 08/26/2021 2:30 PM EST TH Visit (TeleHealth) Family Medicine at [facility] [address] [place] [address] Julia Low, [facility] [...] Julia Low RPH + Alba Anderson P4 Quality Tech Visit Type: Telehealth Phone Diabetes Mellitus (DM) [...] 134 Highest 182 Daily Avg 157 eA1c [phone] Acute Complications Have you ever had a [...] enough to eat eggs every day. Lunch: Critz with ham/turkey, Tunisian cheese, crisostomo, mustard with Doritos Dinner: Spaghetti [...] area transportation options [] Languages other than Austrian: General Science Teacher services provided No [] Allowances for cultural diversity: meal plan will be tailored for cultural food shavon [] Hearing: Field Mechanic provided No [] Vision impaired: print augmentation [...] 30 tablet 3 ??? FreeStyle Sanjana 2 Humphrey Misc 1 each by Other route daily. [...] 0 ??? fluticasone propionate (FLONASE) 50 mcg/actuation [place], Suspension 1 spray by Each Nare route [...] 09/07/2005 TDAP 04/09/2019 , 06/24/2011 Prescription Insurance: [facility] [id number] Assessment and Recommendations: 1. Diabetes Goals of [...] for the individual, but in general the [place] Diabetes Association recommends a fasting blood sugar [...] at the appointment and that [facility] is providing recommendations (summary located at top of note) for provider review and follow up. Julia Low RPH 09/06/21 documented in this encounter Plan of Treatment Upcoming Encounters Date Type Department Care Team (Late st Contact Info) Description 05/01/2024 11:20 AM EDT Appointment Mammography/[place] [address] Rodney Padilla MD [address] [place] [address] 05/01/2024 1:45 PM EDT Office [place] [phone] Juanpablo Hernandez MD [facility] [place] [address] 05/23/2024 2:45 PM EST Clinical Support Family Medicine at [facility] [address] [place] [phone] Julia Low [facility] 01/30/2025 1:30 PM EDT Laboratory Appointment Lab at [facility] Hematology Oncology [address] [place] [address] 01/30/2025 3:[address] [place] [phone] Arturo Cordero MD [facility] [place] [address] 01/30/2025 4:15 PM EDT Office Visit Hematology [place] [phone] Arturo Cordero MD [facility] [place] [address] documented as of this encounter Visit Diagnoses Diagnosis Type 2 diabetes mellitus without long-term current use of insulin documented in this encounter Care Teams Steam Finisher Relationship Specialty Start Date End Date Luis E Narayan MD [facility] [address] [place] [address] PCP - General Family Medicine 03/26/19 01/19/22 documented as of this encounter
--- OUTSIDE RECORDS SUMMARY | 2024-04-13 15:46 | XMS_ITS | Encounter Summary ---
Author Organization [facility] Address [facility] [place] [address] Care Team Providers Care Motorcycle Delivery Driver Name Role Phone Daryn Garrett MD Primary Care Provider Reason for Visit * Reason Onset Date Comments Medication Refill 10/02/2021 Encounter Details Date Type Department Care Team (Late st Contact Info) Description 10/02/2021 Refill Family Medicine at [facility] [address] [place] [address] Luis E Narayan MD [facility] [address] [place] [address] Social History Tobacco Use Types Packs/Day Years [...] 05/01/2024 11:20 AM EDT Appointment Mammography/[place] [address] Rodney Padilla MD [address] [place] [address] 05/01/2024 1:45 PM EDT Office [place] [address] Juanpablo Hernandez MD [facility] [place] [address] 05/23/2024 2:45 PM EST Clinical Support Family Medicine at [facility] [address] [place] [address] Julia Low [facility] 01/30/2025 1:30 PM EDT Laboratory Appointment Lab at [facility] Hematology Oncology [address] [place] [address] 01/30/2025 3:[address] [place] [phone] Arturo Cordero MD [facility] [place] [address] 01/30/2025 4:15 PM EDT Office Visit Hematology [place] [address] Arturo Cordero MD [facility] [place] [address] documented as of this encounter Visit Diagnoses Not on filedocumented in this encounter Care Teams Motorcycle Delivery Driver Relationship Specialty Start Date End Date Daryn Garrett MD [facility] [address] [place] [address] PCP - General 04/10/24 documented as of this encounter
--- OUTSIDE RECORDS SUMMARY | 2024-04-13 15:47 | XMS_ITS | Encounter Summary ---
Author Organization [facility] [place] [address] Care Team Providers Care Oil Transport Driver Name Role Phone Luis E Narayan MD Primary Care Provider Encounter Details Date Type Department Care Team (Late st Contact Info) Description 06/22/2021 Telephone Internal Medicine at [facility] [address] [place] [phone] Shea Rodas Social History Tobacco Use Types [...] 05/01/2024 11:20 AM EDT Appointment Mammography/[place] [address] Rodney Padilla MD [address] [place] [address] 05/01/2024 1:45 PM EDT Office [place] [address] Juanpablo Hernandez MD [facility] [place] [address] 05/23/2024 2:45 PM EST Clinical Support Family Medicine at [address] [place] [address] Julia Low [facility] 01/30/2025 1:30 PM EDT Laboratory Appointment Lab at [facility] Hematology Oncology [address] [place] [address] 01/30/2025 3:[address] [place] [address] Arturo Cordero MD [facility] DR HEMATOLOGY [place] [address] 01/30/2025 4:15 PM EDT Office Visit Hematology [place] [phone] Arturo Cordero MD [facility] DR HEMATOLOGY [place] [address] documented as of this encounter Visit Diagnoses Not on filedocumented in this encounter Care Teams Oil Transport Driver Relationship Specialty Start Date End Date Luis E Narayan MD [facility] DR [address] [address] PCP - General Family Medicine 03/26/19 01/19/22 documented as of this encounter
--- OUTSIDE RECORDS SUMMARY | 2024-04-13 15:47 | XMS_ITS | Encounter Summary ---
[place] [address] Care Team Providers Care Registered Occupational Therapist Name Role Phone Luis E Narayan MD Primary Care Provider Reason for Referral * Consultation (Routine) - Closed Specialty Diagnoses / Procedures Referred By Gonzalez kumari Referred To Contact Gastroenterology Diagnoses Nonalcoholic hepatosteatosis fatty liver disease Janessa Davies APRN [facility] [place] [address] [facility] [place] [address] Referral ID Status Reason Start Date Expiration Date V isits Requested Visits Authorized [id number] Closed Assume Subset of Care 05/31/2021 05/31/2022 1 1 * Physical Therapy (Routine) - Closed Specialty Diagnoses / Procedures Referred By Contchrissy kumari Referred To Contact Physical Therapy Diagnoses Right leg pain Janessa Davies APRN [facility] [place] [address] Physical Therapy, [address] [address] Referral ID Status Reason Start Date Expiration Date V isits Requested Visits Authorized [id number] Closed Evaluate and Treat 05/31/2021 11/27/2021 10 10 Reason for Visit * Reason Comments Right Leg Pain Referral Gastro for GERD, Gas tritis and fatty liver diease Other blood work Immunizations influenza vaccine Encounter Details Date Type Department Care Team (Latest Contact Info) Description 05/31/2021 4:00 PM EST Office Visit Family Medicine at [facility] [address] [place] [phone] Norman Ochoa Jr., MD [facility] [place] [address] Healthcare maintenance; Type 2 diabetes mellitus with [...] this encounter Progress Notes * Janessa Davies, ASSISTANT HAIRSTYLIST - 05/31/2021 4:00 PM EST Subjective: Patient ID: Patience Manjarrez is a 60 y.o. female. Presenting with abdominal pain and multiple requests. Chief Complaint Patient presents with ??? Right Leg Pain ??? Referral Gastro for GERD, Gastritis and fatty liver diease ??? Other blood work ??? Immunizations influenza vaccine Had colonoscopy, and EGD, in [facility] - Dr. Hart still having issues [...] lab work Voice-activated software commonly has unintentional patient service coordinator errors, especially incorrect pronouns, verb tense, and typographical mistakes. 45 minutes: Chart review, [id number], coordination of care, and documentation. documented in this encounter Plan of Treatment Upcoming Encounters Date Type Department Care Team (Late st Contact Info) Description 05/01/2024 11:20 AM EDT Appointment Mammography/[place] [address] Rodney Padilla MD [address] [place] [address] 05/01/2024 1:45 PM EDT Office [place] [address] Juanpablo Hernandez MD [facility] [place] [place] [address] 05/23/2024 2:45 PM EST Clinical Support Family Medicine at [facility] [address] [place] [phone] Julia Low [facility] 01/30/2025 1:30 PM EDT Laboratory Appointment Lab at [facility] Hematology Oncology [address] [place] [address] 01/30/2025 3:[address] [place] [address] Arturo Cordero MD [facility] [place] [address] 01/30/2025 4:15 PM EDT Office Visit Hematology [place] [address] Arturo Cordero MD [facility] [place] [address] Scheduled Referrals Name Type Priority Associated Diagnoses [...] kidney. 4. ??Limited evaluation of the pancreas. Electronically signed by: Nakia Goetz MD, [facility] ([phone]), at 06/08/2021 12:00 PM Thank you for letting us participate in the care of this patient. If you are a health care provider and have any questions regarding this report, please contact the number above. For patients who have questions, please contact the health health careers instructor that requested your imaging first. ? Nakia Goetz, Staff Physician Electronically Signed Final Report ?? 06/08/2021 12:08 pm Narrative 06/08/2021 12:09 PM EST Abdominal ? (Signed Final 06/08/2021 12:08 pm) PATIENT INFO: ID #: ? [id number] ?: ??[birth year] (60 yrs)(F) Name: ? PATIENCE MANJARERZ ? Visit Date: 06/08/2021 11:00 am PERFORMED BY: Performed By: ? Vaughn Marcial RDMS Attending: ?Nakia Goetz MD Referred By: ?JANESSA DAVIES Location: ? Platter SERVICE(S) PROVIDED: UABDLIM - Abdominal Limited Survey Single ? 25809 Organ or Quadrant - [id number] INDICATIONS: RUQ pain, postprandial with fats COMPARISON: [...] 06/08/2021 12:08 pm) PATIENT INFO: ID #: [id number] : 58 (60 yrs)(F) Name: PATIENCE MANJARREZ Visit Date: 06/08/2021 11:00 am PERFORMED BY: Performed By: Vaughn Marcial RDMS Attending: Nakia Goetz MD Referred By: JANESSA DAVIES Location: Platter SERVICE(S) PROVIDED: UABDLIM - Abdominal Limited Survey Single 19237 Organ or Quadrant - [id number] INDICATIONS: RUQ pain, postprandial with fats COMPARISON: [...] kidney. 4. Limited evaluation of the pancreas. Electronically signed by: Nakia Goetz MD, [facility] ([phone]), at 06/08/2021 12:00 PM Thank you for letting us participate in the care of this patient. If you are a health care provider and have any questions regarding this report, please contact the number above. For patients who have questions, please contact the health health careers instructor that requested your imaging first. Nakia Goetz, Staff Physician Electronically Signed Final Report 06/08/2021 12:08 pm Janessa Davies ASSISTANT HAIRSTYLIST IMG US GEN ORDERABLE S * Differential, Automated (05/31/2021 5:57 PM EST) Neutrophil % 56.6 % [facility] Neutrophil Absolute 5.46 1.70 - 6.10 x10(3)/[facility] Lymph % 33.5 % [facility] Lymphocytes Abs 3.2 0.9 - 3.2 x10(3)/[facility] Monocyte % 7.9 % [facility] Monocyte Abs 0.8 0.3 - 0.9 x10(3)/[facility] Eos % 1.2 % [facility] Eosinophils Abs 0.1 0.0 - 0.4 x10(3)/[facility] Basophil % 0.5 % [facility] Baso Absolute 0.0 0.0 - 0.1 x10(3)/[facility] Immature Gran % 0.30 % [facility] Comment: Immature granulocytes(IG's)percentage and absolute count will include metamyelocytes, myelocytes, and promyelocytes. Blood smears from CBCs yielding IG's will be scanned manually for concordance. If this scan disagrees with the automated IG or if promyelocytes are noted, a manual differential will be performed. Immature Gran Absolute 0.03 0.00 - 0.04 x10(3)/[facility] Blood 05/31/2021 5:57 PM EST 05/31/2021 6:05 PM EST Narrative Resulting Agency Comment Spec In Lab Janessa Davies APRN [place] [address] * (ABNORMAL) Hemogram (05/31/2021 5:57 PM EST) White Blood Cell 9.6(H) 4.0 - 9.5 x10(3)/mc L [facility] Red Blood Cell 4.62 4.00 - 5.21 x10(6)/mc L [facility] Hemoglobin 13.5 11.7 - 15.5 g/dL [facility] Hematocrit 40.2 35.7 - 45.8 % [facility] Mean Cell Volume 87.0 82.6 - 94.4 [facility] Mean Cell Hemoglobin 29.2 27.1 - 32.0 pg [facility] Mean Cell Hemoglobin Concentration 33.6 31.7 - 35.0 g/dL [facility] Platelet 404(H) 145 - 357 x10(3)/mc L [facility] RDW Standard Deviation 43.3 37.0 - 46.0 [facility] RDW coefficient of variation 13.6 11.5 - 14.1 % [facility] Mean Platelet Volume 8.8 7.6 - 12.9 [facility] NRBC% auto 0.0 % [facility] NRBC Absolute 0.000 0.000 - 0.000 x10(3)/mc L [facility] Blood 05/31/2021 5:57 PM EST 05/31/2021 6:05 PM EST Narrative Resulting Agency Comment Spec In Lab Janessa Davies APRN HEMATOLOGY ORDERABLE S [facility] [place] [address] * Lipase (05/31/2021 5:57 PM EST) Lipase 46 0 - 60 unit/L [facility] Blood 05/31/2021 5:57 PM EST 05/31/2021 6:05 PM EST Narrative Resulting Agency Comment Spec In Lab Janessa Davies APRN CHEMISTRY ORDERABLES [facility] [place] [address] * Comprehensive metabolic panel (non-fasting) (05/31/2021 5:57 PM EST) Pathologist [facility] Glucose 154 65 - 199 mg/dL [facility] Comment:Diabetes: >=200 mg/d L plus symptoms Blood Urea Nitrogen 14 8 - 18 mg/dL [facility] Creatinine 0.90 0.70 - 1.20 mg/dL [facility] Sodium 140 135 - 145 mmol/L [facility] Potassium 4.2 3.5 - 5.0 mmol/L [facility] Comment: Please note: ??Patients with WBC >100,000 may have falsely elevated Potassium levels. ??For accurate Potassium quantification in these patients send serum separator tube (gold top) for subsequent determinations. ??Contact the Clinical Chemistry Laboratory if there are any questions. Chloride 103 98 - 107 mmol/L [facility] Carbon Dioxide 26 22 - 31 mmol/L [facility] Anion Gap 11 5 - 15 mmol/L [facility] Calcium 9.5 8.5 - 10.5 mg/dL [facility] Protein, Total 7.3 6.1 - 8.0 g/dL [facility] Albumin 4.3 3.2 - 5.2 g/dL [facility] Aspartate Aminotransferase 17 0 - 30 unit/L [facility] Alanine Aminotransferase 22 0 - 30 unit/L [facility] Alkaline Phosphatase 104 35 - 105 unit/L [facility] Bilirubin, Total 0.2 0.2 - 1.3 mg/dL [facility] Est Glomerular Filtration Rate 69 >=60 mL/min/1. 73 m?? [facility] Comment: This patient? s estimated [...] In Lab Janessa Davies APRN CHEMISTRY ORDERABLES [facility] [place] [id number] * (ABNORMAL) Hemoglobin A1c (05/31/2021 5:57 PM EST) Hemoglobin A1c 7.8(H) 4.3 - 5.6 % [facility] Comment: Reference Range: 4.3 - [...] Mellitus, Diabetes Care 2013; 36: Suppl. 1, L57-50 Estimated Average Glucose 178 mg/dL [facility] Comment: eAG equivalents for HbA1c [...] into estimated average glucose values. ??Diabetes Care 2008:31(8):6671-4073. Blood 05/31/2021 5:57 PM EST 05/31/2021 6:05 PM EST Narrative Resulting Agency Comment Spec In Lab Janessa Davies APRN CHEMISTRY ORDERABLES [facility] [place] [id number] * EKG 12 Lead (05/31/2021 5:16 PM EST) Ventricular rate 68 BPM MUSE SYSTEM Atrial Rate 68 BPM MUSE SYSTEM P-R Interval 180 ms MUSE SYSTEM QRS Duration 92 ms MUSE SYSTEM Q-T Interval 390 ms MUSE SYSTEM QTC Calculated (Bezet) 414 ms MUSE SYSTEM Calculated P Bowie 33 degrees MUSE SYSTEM Calculated R Bowie 12 degrees MUSE SYSTEM Calculated T Bowie 41 degrees MUSE SYSTEM INTERPRETATION Normal sinus rhythm Nonspecific T wave abnormality Abnormal ECG When compared with ECG of 11-SEP-2020 14:20, No significant change was found Confirmed by MD Elsa, Zain Banda ([id number]) on 06/01/2021 9:16:58 AM MUSE SYSTEM 05/31/2021 5:16 PM EST 06/01/2021 9:16 AM EST Janessa Huang Bill KATHIA ECG ORDERABLES [employer] documented in this encounter Visit Diagnoses [...] quadrant documented in this encounter Care Teams Registered Occupational Therapist Relationship Specialty Start Date End Date Luis E Narayan MD [facility] [address] [place] [address] PCP - General Family Medicine 03/26/19 01/19/22 documented as of this encounter
--- OUTSIDE RECORDS SUMMARY | 2024-04-13 15:47 | XMS_ITS | Encounter Summary ---
Author Organization [facility] [place] [address] Care Team Providers Care Ccu Nurse Name Role Phone Luis E Narayan MD Primary Care Provider +1- [phone] Encounter Details Date Type Department Care Team (Latest Contact Info) Description 06/24/2021 12:43 PM EST - 06/24/2021 11:59 PM EST Hospital Encounter Hematology [place] [address] Malignant melanoma of conjunctiva, left; History of [...] tablet 1 01/08/2021 08/02/2021 FreeStyle Sanjana 2 [place] MiscIndications:diabetes mellitus 1 each by Other route [...] 09/15/2020 09/19/2023 fluticasone propionate (FLONASE) 50 mcg/actuation Newman, Suspension 1 spray by Each Nare route [...] 11:20 AM EDT Appointment Mammography/[place] [address] Rodney Padilla MD [address] [place] [address] 05/01/2024 1:45 PM EDT Office Visit [place] [address] Juanpablo Hernandez MD [facility] [place] [address] 05/23/2024 2:45 PM EST Clinical Support Family Medicine at [facility] [address] [place] [address] Julia Low RPH 01/30/2025 1:30 PM EDT Laboratory Appointment Lab at [facility] Hematology Oncology [address] [place] [address] 01/30/2025 3:[address] [place] [address] Arturo Cordero MD [facility] DR HEMATOLOG[place] [address] 01/30/2025 4:15 PM EDT Office Visit Hematology [place] [address] Arturo Cordero MD [facility] [place] [address] documented as of this encounter Procedures Procedure [...] 12:52 PM EST) Neutrophil % 62.0 % [facility] Neutrophil Absolute 5.24 1.70 - 6.10 x10(3)/[facility] Lymph % 27.4 % [facility] Lymphocytes Abs 2.3 0.9 - 3.2 x10(3)/[facility] LAB[facility] Monocyte % 8.0 % [facility] Monocyte Abs 0.7 0.3 - 0.9 x10(3)/[facility] LAB[facility] Eos % 1.4 % [facility] Eosinophils Abs 0.1 0.0 - 0.4 x10(3)/[facility] LABOR[facility] Basophil % 0.8 % [facility] Baso Absolute 0.1 0.0 - 0.1 x10(3)/[facility] LABOR[facility]ORY Immature Gran % 0.40 % [facility] Comment: Immature granulocytes(IG's)percentage and absolute count will include metamyelocytes, myelocytes, and promyelocytes. Blood smears from CBCs yielding IG's will be scanned manually for concordance. If this scan disagrees with the automated IG or if promyelocytes are noted, a manual differential will be performed. Immature Gran Absolute 0.03 0.00 - 0.04 x10(3)/[facility] LABOR[facility] Blood 06/24/2021 12:5 2 PM EST 06/24/2021 1:02 PM EST Narrative Resulting Agency Comment Spec In Lab Leandra Lopes DANCE MASTER HEMATOLOGY ORDERAB LES [facility] [place] [address] * (ABNORMAL) Hemogram (06/24/2021 12:52 PM EST) White Blood Cell 8.5 4.0 - 9.5 x10(3)/mc L [facility] Red Blood Cell 4.74 4.00 - 5.21 x10(6)/mc L [facility] Hemoglobin 13.9 11.7 - 15.5 g/dL [...] MEDICAL CENTER LABORATORY NRBC% auto 0.0 % [facility] NRBC Absolute 0.000 0.000 - 0.000 x10(3)/mc L [facility] Blood 06/24/2021 12:5 2 PM EST 06/24/2021 1:02 PM EST Narrative Resulting Agency Comment Spec In Lab Leandra Lopes DANCE MASTER HEMATOLOGY ORDERAB LES Performing Organization Address City/State/[facility] Co de Phone Number [facility] [place] [address] * (ABNORMAL) Comprehensive metabolic panel (non-fasting) (06/24/2021 [...] APRN CHEMISTRY ORDERABL ES Performing Organization Address City/[facility] Co de Phone Number [facility] [place] [address] * Lactate Dehydrogenase (06/24/2021 12:52 PM EST) Lactate Dehydrogenase 215 110 - 220 unit/L [facility] Blood 06/24/2021 12:5 2 PM EST 06/24/2021 1:02 PM EST Narrative Resulting Agency Comment Spec In Lab Leandra Lopes APRN CHEMISTRY ORDERABL ES Performing Organization Address City/[facility]/ZIP Co de Phone Number [facility] [place] [address] documented in this encounter Visit Diagnoses Diagnosis Malignant melanoma of conjunctiva, left History of renal cell cancer documented in this encounter Care Teams Ccu Nurse Relationship Specialty Start Date End Date Luis E Narayan MD [facility] DR [address] [place] [address] PCP - General Family Medicine 03/26/19 01/19/22 documented as of this encounter
--- OUTSIDE RECORDS SUMMARY | 2024-04-13 15:47 | XMS_ITS | Encounter Summary ---
Author Organization [facility] Address [facility] [place] [address] Care Team Providers Care Office Systems Technology Instructor Name Role Phone Luis E Narayan MD Primary Care Provider +1- [phone] Reason for Visit * Reason Onset Date Comments Medication Refill 05/05/2021 Encounter Details Date Type Department Care Team (Late st Contact Info) Description 05/05/2021 Refill Family Medicine at [facility] [address] [place] [address] Luis E Narayan MD [facility] [address] [place] [address] Essential hypertension Social History Tobacco Use Types [...] slept in a longterm (including now)? No 02/03/2021 Sex and Gender Information Value Date Recorded Sex Assigned at Not on file Gender Identity Not on file Sexual Orientation Not on file documented as of this encounter Plan of Treatment Upcoming Encounters Date Type Department Care Team (Late st Contact Info) Description 05/01/2024 11:20 AM EDT Appointment Mammography/[place] [address] Rodney Padilla MD [address] [place] [address] 05/01/2024 1:45 PM EDT Office [place] [address] Juanpablo Hernandez MD [facility] [place] [address] 05/23/2024 2:45 PM EST Clinical Support Family Medicine at [facility] [address] [place] [address] Julia Low, [facility] 01/30/2025 1:30 PM EDT Laboratory Appointment Lab at [facility] Hematology Oncology [address] [place] [address] 01/30/2025 3:[address] [place] [address] Arturo Cordero MD [facility] HEMATOLOGY [place] [address] 01/30/2025 4:15 PM EDT Office Visit Hematology [place] [address] Arturo Cordero MD [facility] HEMATOLOGY [place] [address] documented as of this encounter Visit Diagnoses Diagnosis Essential hypertension Unspecified essential hypertension documented in this encounter Care Teams Office Systems Technology Instructor Relationship Specialty Start Date End Date Luis E Narayan MD [facility] [address] [place] [address] PCP - General Family Medicine 03/26/19 01/19/22 documented as of this encounter
--- OUTSIDE RECORDS SUMMARY | 2024-04-13 15:47 | XMS_ITS | Encounter Summary ---
Author Organization [facility] Address [facility] [place] [address] Care Team Providers Care Front Of House Manager Name Role Phone Luis E Narayan MD Primary Care Provider +1- [phone] Reason for Visit * Reason Onset Date Comments Medication Refill 08/02/2021 Encounter Details Date Type Department Care Team (Late st Contact Info) Description 08/02/2021 Refill Family Medicine at [facility] [address] [place] [address] Luis E Narayan MD [facility] [address] [place] [address] Social History Tobacco Use Types Packs/Day Years [...] 11:20 AM EDT Appointment Mammography/[place] [address] Rodney Padilla MD [address] [place] [place] [address] 05/01/2024 1:45 PM EDT Office [place] [address] Juanpablo Hernandez MD [facility] [place] [address] 05/23/2024 2:45 PM EST Clinical Support Family Medicine at [facility] [address] [place] [address] Julia Low [facility] 01/30/2025 1:30 PM EDT Laboratory Appointment Lab at [facility] Hematology Oncology [address] [place] [address] 01/30/2025 3:[address] [place] [address] Arturo Cordero MD [facility] [place] [address] 01/30/2025 4:15 PM EDT Office Visit Hematology [place] [address] Arturo Cordero MD [facility] [place] [address] documented as of this encounter Visit Diagnoses Not on filedocumented in this encounter Care Teams Front Of House Manager Relationship Specialty Start Date End Date Luis E Narayan MD [facility] [address] [place] [address] PCP - General Family Medicine 03/26/19 01/19/22 documented as of this encounter
--- OUTSIDE RECORDS SUMMARY | 2024-04-13 15:47 | XMS_ITS | Encounter Summary ---
Author Organization [facility] Address [facility] [place] [address] Care Team Providers Care Wafer Fabrication Technician Name Role Phone Luis E Narayan MD Primary Care Provider +1- [phone] Reason for Visit * Reason Onset Date Comments Medication Refill 06/04/2021 Encounter Details Date Type Department Care Team (Late st Contact Info) Description 06/04/2021 Refill Family Medicine at [facility] [address] [place] [address] Luis E Narayan MD [facility] [address] [place] [address] Essential hypertension Social History Tobacco Use Types [...] in a skilled nursing (including now)? No 02/03/2021 Sex and Gender [...] 05/01/2024 11:20 AM EDT Appointment Mammography/[place] [address] Rodney Padilla MD [address] [place] [address] 05/01/2024 1:45 PM EDT Office [place] [address] Juanpablo Hernandez MD [facility] [place] [address] 05/23/2024 2:45 PM EST Clinical Support Family Medicine at [facility] [address] [place] [address] Julia Low [facility] 01/30/2025 1:30 PM EDT Laboratory Appointment Lab at [facility] [place] On[place] [address] [place] [address] 01/30/2025 3:[address] [place] [address] Arturo Cordero MD [facility] [place] [address] 01/30/2025 4:15 PM EDT Office Visit Hematology [place] [address] Arturo Cordero MD [facility] [place] [address] documented as of this encounter Visit Diagnoses Diagnosis Essential hypertension Unspecified essential hypertension documented in this encounter Care Teams Wafer Fabrication Technician Relationship Specialty Start Date End Date Luis E Narayan MD [facility] [place] [address] PCP - General Family Medicine 03/26/19 01/19/22 documented as of this encounter
--- OUTSIDE RECORDS SUMMARY | 2024-04-13 15:47 | XMS_ITS | Encounter Summary ---
Author Organization [facility] [place] [address] Care Team Providers Care Fur Blowing Machine Operator Name Role Phone Luis E Narayan MD Primary Care Provider +1- [phone] Encounter Details Date Type Department Care Team (Latest Contact Info) Description 06/08/2021 10:16 AM EST - 06/08/2021 11:59 PM [facility] [place] [address] Janessa Davies, ACCOUNTING OFFICER [facility] [address] [place] [address] Right upper quadrant pain Discharge Disposition: Home [...] slept in a penitentiary (including now)? No 02/03/2021 Sex and Gender [...] tablet 1 01/08/2021 08/02/2021 FreeStyle Sanjana 2 [place] MiscIndications:diabe escobar mellitus 1 each by Other [...] 09/15/2020 09/19/2023 fluticasone propionate (FLONASE) 50 mcg/actuation [place], Suspension 1 spray by Each Nare route [...] 05/01/2024 11:20 AM EDT Appointment Mammography/[place] [address] Rodney Padilla MD [address] [facility] [place] [address] 05/01/2024 1:45 PM EDT Office [place] [address] Juanpablo Hernandez MD [facility] [place] [address] 05/23/2024 2:45 PM EST Clinical Support Family Medicine at [facility] [address] [place] [address] Julia Low [facility] 01/30/2025 1:30 PM EDT Laboratory Appointment Lab at [facility] Hematology Oncology [address] [place] [address] 01/30/2025 3:[address] [place] [address] Arturo Cordero MD [facility] [place] [address] 01/30/2025 4:15 PM EDT Office Visit [place]ology [place] [address] Arturo Cordero MD [facility] DR HEMATOLOGY AND ONCOLOGY [place], [place] [address] documented as of this encounter Procedures Procedure [...] have questions, please contact the health care connector that requested your imaging first. ? Nakia Goetz, Staff Physician Electronically Signed Final Report ?? 06/08/2021 12:08 pm Narrative 06/08/2021 12:09 PM EST Abdominal ? (Signed Final 06/08/2021 12:08 pm) PATIENT INFO: ID #: ? [id number] ?: ??58 (60 yrs)(F) Name: ? PATIENCE MANJARREZ ? Visit Date: 06/08/2021 11:00 am PERFORMED BY: Performed By: ? Vaughn Marcial RDMS Attending: ?Sofy COLVIN, Nakia Andrade Referred By: ?JANESSA DAVIES Location: ? [place] SERVICE(S) PROVIDED: UABDLIM - Abdominal Limited Survey Single ? 86839 Organ or Quadrant - [id number] INDICATIONS: RUQ pain, postprandial with fats COMPARISON: [...] 06/08/2021 12:08 pm) PATIENT INFO: ID #: [id number] : 58 (60 yrs)(F) Name: PATIENCE MANJARREZ Visit Date: 06/08/2021 11:00 am PERFORMED BY: Performed By: Vaughn Marcial RDMS Attending: Nakia Goetz MD Referred By: JANESSA DAVIES Location: [place] SERVICE(S) PROVIDED: UABDLIM - Abdominal Limited Survey Single 35874 Organ or Quadrant - [id number] INDICATIONS: RUQ pain, postprandial with fats COMPARISON: [...] have questions, please contact the health care connector that requested your imaging first. Nakia Goetz, Staff Physician Electronically Signed Final Report 06/08/2021 12:08 pm Janessa Mcmillank ACCOUNTING OFFICER IMG US GEN ORDERABLE S documented in this encounter Visit Diagnoses Diagnosis Right upper quadrant pain Abdominal pain, right upper quadrant documented in this encounter Care Teams Fur Blowing Machine Operator Relationship Specialty Start Date End Date Luis E Narayan MD [facility] [address] [place] [address] PCP - General Family Medicine 03/26/19 01/19/22 documented as of this encounter
--- OUTSIDE RECORDS SUMMARY | 2024-04-13 15:47 | XMS_ITS | Encounter Summary ---
Author Organization [facility] Address [facility] [place] [address] Care Team Providers Care Apprenticeship Training Representative Name Role Phone Luis E Narayan MD Primary Care Provider +1- [phone] Reason for Visit * Reason Comments Diabetes Encounter Details Date Type Department Care Team (Late st Contact Info) Description 08/06/2021 11:00 AM EST TH Visit (TeleHealth) Family Medicine at [facility] [address] [place] [address] Julia Low, [facility] Type 2 [...] antithrombotic long-term use, Arthritis, Asthma, 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 Continue metformin 1000 mg BID ?? Sent testing supplies to [employer] ?? Will recommend Ozempic 0.25 mg once [...] cause hypoglycemia in the afternoon SMBG: Prescribed Thotzyle Sanjana CGM But still can not find. [...] not want to eat every day Lunch: [place] with ham/turkey serbian cheese crisostomo and mustard with Doritos Dinner: [...] area transportation options [] Languages other than Citizen [place]: [employer] services provided No [] Allowances for cultural diversity: meal plan will be tailored for cultural food shavon [] Hearing: Family Day Care Provider provided No [] Vision impaired: print augmentation [...] 30 tablet 3 ??? FreeStyle Sanjana 2 [place] Misc 1 each by Other route daily. [...] 0 ??? fluticasone propionate (FLONASE) 50 mcg/actuation [place], Suspension 1 spray by Each Nare route [...] 09/07/2005 TDAP 04/09/2019 , 06/24/2011 Prescription Insurance: [facility] [id number] Assessment and Recommendations: 1. Diabetes Goals of [...] for the individual, but in general the [place] [employer] Association recommends a fasting blood sugar [...] were made at the appointment and that [facility] is providing recommendations (summary located at top of note) for provider review and follow up. Julia Low RPH 08/06/21 documented in this encounter Plan of Treatment Upcoming Encounters Date Type Department Care Team (Late st Contact Info) Description 05/01/2024 11:20 AM EDT Appointment Mammography/[place] [address] Rodney Padilla MD [address] [place] [address] 05/01/2024 1:45 PM EDT Office [place] [address] Juanpablo Hernandez MD [facility] [place] [address] 05/23/2024 2:45 PM EST Clinical Support Family Medicine at [facility] [address] [place] [address] Julia Low [facility] 01/30/2025 1:30 PM EDT Laboratory Appointment Lab at [facility] Hematology Oncology [address] [place] [address] 01/30/2025 3:[address] [place] [address] Arturo Cordero MD [facility] DR HEMATOLOGY [place] [address] 01/30/2025 4:15 PM EDT Office Visit [place]ematology [place] [address] Arturo Cordero MD [facility] DR HEMATOLOGY [place] [address] documented as of this encounter Visit Diagnoses Diagnosis Type 2 diabetes mellitus without long-term current use of insulin- Primary documented in this encounter Care Teams Apprenticeship Training Representative Relationship Specialty Start Date End Date Luis E Narayan MD [facility] [address] [place], [place] [phone] PCP - General Family Medicine 03/26/19 01/19/22 documented as of this encounter
--- OUTSIDE RECORDS SUMMARY | 2024-04-13 15:47 | XMS_ITS | Encounter Summary ---
Author Organization [facility] Address [facility] [place] [address] Care Team Providers Care In Home Nanny Name Role Phone Luis E Narayan MD Primary Care Provider +1- [phone] Reason for Visit * Reason Onset Date Comments Medication Refill 06/19/2021 Encounter Details Date Type Department Care Team (Late st Contact Info) Description 06/19/2021 Refill Family Medicine at [facility] [address] [place] [address] Luis E Narayan MD [facility] [address] [place] [address] Mixed hyperlipidemia Social History Tobacco Use Types [...] 05/01/2024 11:20 AM EDT Appointment Mammography/[place] [address] Rodney Padilla MD [address] [place] [address] 05/01/2024 1:45 PM EDT Office [place] [address] [facility] [place] [address] 05/23/2024 2:45 PM EST Clinical Support Family Medicine at [facility] [address] [place] [address] Julia Low [facility] 01/30/2025 1:30 PM EDT Laboratory Appointment Lab at [facility] Hematology Oncology [address] [place] [address] 01/30/2025 3:[address] [place] [address] [facility] [address] [place] [address] 01/30/2025 4:15 PM EDT Office Visit [place] [address] [facility] [place] [address] documented as of this encounter Visit Diagnoses Diagnosis Mixed hyperlipidemia documented in this encounter Care Teams In Home Nanny Relationship Specialty Start Date End Date Luis E Narayan MD [facility] [address] [place] [address] PCP - General Family Medicine 03/26/19 01/19/22 documented as of this encounter
--- OUTSIDE RECORDS SUMMARY | 2024-04-13 15:47 | XMS_ITS | Encounter Summary ---
Author Organization [facility] Address [facility] [place] [address] Care Team Providers Care Composite Science Teacher Name Role Phone Luis E Narayan MD Primary Care Provider +1- [phone] Reason for Visit * Reason Onset Date Comments Medication Refill 08/02/2021 Encounter Details Date Type Department Care Team (Late st Contact Info) Description 08/02/2021 Refill Family Medicine at [facility] [address] [place] [address] Luis E Narayan MD [facility] [address] [place] [address] Type 2 diabetes mellitus without long-term current [...] AM EDT Appointment Mammography/[place] [address] Rodney Padilla MD [address] [place] [address] 05/01/2024 1:45 PM EDT Office [place] [address] Juanpablo Hernandez MD [facility] [place] [address] 05/23/2024 2:45 PM EST Clinical Support Family Medicine at [facility] [address] [place] [address] Julia Low, [facility] 01/30/2025 1:30 PM EDT Laboratory Appointment Lab at [facility] Hematology Oncology [address] [place] [address] 01/30/2025 3:[address] [place] [address] Arturo Cordero MD [facility] [place] [address] 01/30/2025 4:15 PM EDT Office Visit Hematology [place] [address] Arturo Cordero MD [facility] [place] [address] documented as of this encounter Visit Diagnoses Diagnosis Type 2 diabetes mellitus without long-term current use of insulin documented in this encounter Care Teams Composite Science Teacher Relationship Specialty Start Date End Date Luis E Narayan MD [facility] [address] [place] [address] PCP - General Family Medicine 03/26/19 01/19/22 documented as of this encounter
--- OUTSIDE RECORDS SUMMARY | 2024-04-13 15:47 | XMS_ITS | Encounter Summary ---
[place] [address] Care Team Providers Care Occupational Health Professional Name Role Phone Luis E Narayan MD Primary Care Provider Reason for Visit * Consultation (Routine) - Closed Specialty Diagnoses / Procedures Referred By Gonzalez kumari Referred To Contact Gastroenterology Diagnoses Nonalcoholic hepatosteatosis fatty liver disease Tamera Khan, [facility] [address] [place] [address] [facility] [address] [address] Referral ID Status Reason Start Date Expiration Date V isits Requested Visits Authorized [id number] Closed Assume Subset of Care 05/31/2021 05/31/2022 1 1 Encounter Details Date Type Department Care Team (Late st Contact Info) Description 07/16/2021 9:00 AM EST Office [place] [address] Sonia Michel, [facility] [place] [address] NAFLD (nonalcoholic fatty liver disease); [...] HEPATOLOGY NEW PATIENT CONSULTATION Alize Gramajo 1960 STEAM GIGGER: SONIA MICHEL APRN PCP: Luis E Narayan [...] sauce. Had an EGD and Colonoscopy at [facility] this fall, done by Dr. Renetta Coon [...] uses inhalerswith good effect ??? Atherosclerosis of [place] coronary artery of [place] heart with angina pectoris 10/09/2007 History of [...] the 07/16/21 encounter (Office Visit) with Sonia Mihcel APRN Medication Sig Dispense Refill ??? nitroGLYcerin [...] 11 ??? fluticasone propionate (FLONASE) 50 mcg/actuation [place], Suspension 1 spray by Each Nare route [...] Michel APRN Section of Gastroenterology [place] [address] Copy: Luis E Narayan MD [facility] [address] [facility] [facility] / [place] N* documented in this encounter Plan of Treatment Upcoming Encounters Date Type Department Care Team (Late st Contact Info) Description 05/01/2024 11:20 AM EDT Appointment Mammography/[place] [phone] Rodney Padilla MD [address] [place] [address] 05/01/2024 1:45 PM EDT Office [place] [phone] Juanpablo Hernandez MD [facility] [place] [address] 05/23/2024 2:45 PM EST Clinical Support Family Medicine at [facility] [address] [place] [phone] Julia Low RPH 01/30/2025 1:30 PM EDT Laboratory Appointment Lab at [facility] Hematology Oncology [address] [place] [address] 01/30/2025 3:[address] [place] [address] Arturo Cordero MD [facility] DR [place] [address] 01/30/2025 4:15 PM EDT Office Visit Hematology [place] [address] Arturo Cordero MD [facility] DR [place] [address] documented as of this encounter Procedures Procedure [...] Hemoglobin A1c 8.2(H) 4.3 - 5.6 % [facility] [...] Mellitus, Diabetes Care 2013; 36: Suppl. 1, M77-18 Estimated Average Glucose 188 mg/dL [facility] Comment: eAG equivalents [...] into estimated average glucose values. ??Diabetes Care 2008:31(8):4761-4724. Blood 07/16/2021 10:0 7 AM EST 07/16/2021 10:13 AM EST Narrative Resulting Agency Comment Spec In Lab Sonia Michel APRN CHEMISTRY ORDERABL ES [facility] [place] [address] * Hepatitis B Surface Antibody (07/16/2021 10:07 AM EST) Hepatitis B Surface Antibody, Quantitative <3.5 IU/L [facility] Comment: HepB Surface Ab Quant: Unvaccinated: < 8.5 IU/L Vaccinated: > 11.5 IU/L Hepatitis B Surface Antibody Negative [facility] Comment: Patient is presumed to be not vaccinated or immune to HBV infection. Expected Results: Vaccinated: Positive Unvaccinated: Negative Blood 07/16/2021 10:0 7 AM EST 07/16/2021 10:13 AM EST Narrative Resulting Agency Comment Spec In Lab Sonia Sorensen Mere [place] CHEMISTRY ORDERABL ES Performing Organization Address [facility] Phone Number [facility] [place] [address] * Hepatitis B Surface Antigen (07/16/2021 10:07 AM EST) Hepatitis B Surface Antigen Negative Negative [facility] Blood 07/16/2021 10:0 7 AM EST 07/16/2021 10:13 AM EST Narrative Resulting Agency Comment Spec In Lab Sonia Fitchdavid BAE CHEMISTRY ORDERABL ES Performing Organization Address [facility] Phone Number [facility] [place] [address] * (ABNORMAL) Ferritin (07/16/2021 10:07 AM EST) Ferritin 27(L) 30 - 400 ng/mL [facility] Comment: Pediatric reference ranges not verified at [facility], interpret with caution. Reference ranges for females greater than 50 years of age approach values for men, i.e., 30-400 ng/mL. Blood 07/16/2021 10:0 7 AM EST 07/16/2021 10:13 AM EST Narrative Resulting Agency Comment Spec In Lab Sonia Fitchdavid [place] CHEMISTRY ORDERABL ES Performing Organization Address [facility] Phone Number [facility] [place] [address] * (ABNORMAL) Iron and TIBC (07/16/2021 10:07 AM EST) Iron 46 30 - 150 mcg/dL [facility] TIBC 368 250 - 450 mcg/dL [facility] Iron Saturation 12(L) 20 - 50 % [facility] Blood 07/16/2021 10:0 7 AM EST 07/16/2021 10:13 AM EST Narrative Resulting Agency Comment Spec In Lab Sonia Michel APRN CHEMISTRY ORDERABL ES [facility] [place] [address] * Comprehensive metabolic panel (non-fasting) (07/16/2021 10:07 AM EST) Pathologist [facility] [place] Glucose 169 65 - 199 mg/dL [facility] Comment:Diabetes: >=200 mg/d L plus symptoms Blood Urea Nitrogen 14 8 - 18 mg/dL [facility] Creatinine 0.81 0.70 - 1.20 mg/dL [facility] Sodium 140 135 - 145 mmol/L [facility] Potassium 4.6 3.5 - 5.0 mmol/L [facility] Comment: Please note: ??Patients with WBC >100,000 may have falsely elevated Potassium levels. ??For accurate Potassium quantification in these patients send serum separator tube (gold top) for subsequent determinations. ??Contact the Clinical Chemistry Laboratory if there are any questions. Chloride 102 98 - 107 mmol/L [facility] Carbon Dioxide 28 22 - 31 mmol/L [facility] Anion Gap 10 5 - 15 mmol/L [facility] Calcium 9.8 8.5 - 10.5 mg/dL [facility] Protein, Total 7.1 6.1 - 8.0 g/dL [facility] Albumin 4.4 3.2 - 5.2 g/dL [facility] Aspartate Aminotransferase 18 0 - 30 unit/L [facility] Alanine Aminotransferase 26 0 - 30 unit/L [facility] Alkaline Phosphatase 102 35 - 105 unit/L [facility] Bilirubin, Total 0.3 0.2 - 1.3 mg/dL [facility] Est Glomerular Filtration Rate 78 >=60 mL/min/1. 73 m?? [facility] [...] Lab Sonia Michel APRN CHEMISTRY ORDERABL ES [facility] [place] [address] documented in this encounter Visit Diagnoses Diagnosis NAFLD (nonalcoholic fatty liver disease) Other chronic nonalcoholic liver disease Type 2 diabetes mellitus without complication, without long-term current use of insulin documented in this encounter Care Teams Occupational Health Professional Relationship Specialty Start Date End Date Luis E Narayan MD [facility] [address] [address] PCP - General Family Medicine 03/26/19 01/19/22 documented as of this encounter
--- OUTSIDE RECORDS SUMMARY | 2024-04-13 15:47 | XMS_ITS | Encounter Summary ---
Author Organization [facility] [place] [address] Care Team Providers Care Building Specialist Name Role Phone Luis E Narayan MD Primary Care Provider [phone]- [phone] Encounter Details Date Type Department Care Team (Late st Contact Info) Description 06/16/2021 Telephone Family Medicine at [address] [place] [address] Thania Flores, RN Social History Tobacco Use [...] call the office back or check my message. The call backnumber is [phone]. * Telephone Encounter - Thania Flores RN [...] 05/01/2024 11:20 AM EDT Appointment Mammography[place] [address] Rodney Padilla MD [address] [place] [address] 05/01/2024 1:45 PM EDT Office Visit Ophthalmology at [place] [phone] Juanpablo Hernandez MD [facility] [place] [address] 05/23/2024 2:45 PM EST Clinical Support Family Medicine at [facility] [address] [place] [address] Julia Low, [facility] 01/30/2025 1:30 PM EDT Laboratory Appointment Lab at [facility] Hematology Oncology [address] [place] [address] 01/30/2025 3:[address] [place] [place] [address] Arturo Cordero MD [facility] DR HEMATOLOGY [place] [address] 01/30/2025 4:15 PM EDT Office Visit [place]ology [place] [address] Arturo Cordero MD [facility] DR HEMATOLOGY [place] [address] documented as of this encounter Visit Diagnoses Not on filedocumented in this encounter Care Teams Building Specialist Relationship Specialty Start Date End Date Luis E Narayan MD [facility] DR [address] [address] PCP - General Family Medicine 03/26/19 01/19/22 documented as of this encounter
--- OUTSIDE RECORDS SUMMARY | 2024-04-13 15:47 | XMS_ITS | Encounter Summary ---
Author Organization [facility] [place] [address] Care Team Providers Care Stemmer Machine Name Role Phone Luis E Narayan MD Primary Care Provider Encounter Details Date Type Department Care Team (Late st Contact Info) Description 03/31/2021 Orders Only Family Medicine at [address] [place] [address] Alejandra Posadas, RN Social History Tobacco Use [...] 05/01/2024 11:20 AM EDT Appointment Mammography/[place] [address] Rodney Padilla MD [address] [place] [address] 05/01/2024 1:45 PM EDT Office [place] [address] Juanpablo Hernandez MD [facility] [place] [address] 05/23/2024 2:45 PM EST Clinical Support Family Medicine at [facility] [address] [place] [address] Julia Low, [facility] 01/30/2025 1:30 PM EDT Laboratory Appointment Lab at [facility] Hematology Oncology [address] [place] [address] 01/30/2025 3:[address] [place] [address] Arturo Cordero MD [facility] [place] [address] 01/30/2025 4:15 PM EDT Office Visit Hematology [place] [address] Arturo Cordero MD [facility] [place] [address] documented as of this encounter Visit Diagnoses Not on filedocumented in this encounter Care Teams Stemmer Machine Relationship Specialty Start Date End Date Luis E Narayan MD [facility] [address] [place] [address] PCP - General Family Medicine 03/26/19 01/19/22 documented as of this encounter
--- OUTSIDE RECORDS SUMMARY | 2024-04-13 15:47 | XMS_ITS | Encounter Summary ---
Author Organization [facility] [place] [address] Care Team Providers Care Ophthalmic Aide Name Role Phone Luis E Narayan MD Primary Care Provider Reason for Referral * Diagnostic Test (Routine) - Closed Specialty Diagnoses / Procedures Referred By Contac t Referred To Contact Radiology Diagnoses Malignant melanoma of conjunctiva, left Malignant melanoma, unspecified site Procedures CT Neck Soft Tissue w Contrast (Generic) Leandra Lopes APRN [facility] DR [place] [address] [facility] [place] [address] Referral ID Status Reason Start Date Expiration Date V isits Requested Visits Authorized [id number] Closed Specialty Service Requested 12/23/2021 07/09/2022 1 1 * Diagnostic Test (Routine) - Closed Specialty Diagnoses / Procedures Referred By Contac t Referred To Contact Radiology Diagnoses Malignant melanoma of conjunctiva, left Malignant melanoma, unspecified site Procedures CT Chest Abdomen Pelvis w Contrast (Generic) Leandra Lopes APRN [facility] DR H[place] [address] [facility] [place] [address] Referral ID Status Reason Start Date Expiration Date V isits Requested Visits Authorized [id number] Closed Specialty Service Requested 12/23/2021 07/09/2022 1 1 Reason for Visit * Reason Comments Follow-up Encounter Details Date Type Department Care Team (Late st Contact Info) Description 06/24/2021 3:15 PM EST Office Visit Hematology [place] [address] Arturo Cordero MD [facility] DR HEMATOLOGY [place] [address] Dottie Jim MD [facility] [place] [address] Leandra Lopes APRN [facility] [place] [address] Malignant melanoma of conjunctiva, left; Malignant melanoma, [...] in this encounter Progress Notes * Leandra Lopes, KATHIA - 06/24/2021 3:15 PM EST Images from the original note were not included. [facility] FOLLOW UP NOTE REFERING PHYSICIAN: Dr. [...] management - fall 2018: saw a new styrene dehydration reactor operator and was referred to Dr. 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 Medina - 03/31/2020: saw her styrene dehydration reactor operator Dr. Hernandez and was noted to [...] is having regular follow ups with her psychiatric clinical nurse specialist. She continues to smoke, but hopes to [...] uses inhalerswith good effect ??? Atherosclerosis of [place] coronary artery of [place] heart with angina pectoris 10/09/2007 History of [...] 3.47) performed by Juanpablo Hernandez MD at [facility] ??? PRO EXCIS CORNEA LESN Left 05/14/2020 EXCISION OF LESION, CORNEA, EXCEPT PTERYGIUM (WRVU 7.5) performed by Juanpablo Hernandez MD at [facility] ??? PRO LAP, PARTIAL NEPHRECTOMY Left 06/28/2019 LAPAROSCOPY, PARTIAL NEPHRECTOMY, ROBOTIC ASSIST (WRVU 27.41) performed by Avila Medina MD at [facility] MAIN OR ??? 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 o Sun Exposure: Use broad spectrum, 30 SPF or higher, water resistant sunscreen with reapplication every 2 hours OR SPF clothing and limit your amount of direct sun exposure when possible. o Regular skin and lymph node self-examination should be performed. Please report any new lesions, lumps or bumps of concern to your psychiatric clinical nurse specialist or oncology team. ? You should be [...] new symptoms or concerns. Leandra Lopes DNP, JANITOR CLEANER Return in 3 mos for stand alone US RTC in 6 mos with labs, clinic appointment and CT scan documented in this encounter Plan of Treatment Upcoming Encounters Date Type Department Care Team (Late st Contact Info) Description 05/01/2024 11:20 AM EDT Appointment Mammography/[place] [address] Rodney Padilla MD [address] [place] [place] [address] 05/01/2024 1:45 PM EDT Office [place] [address] Juanpablo Hernandez MD [facility] [place] [address] 05/23/2024 2:45 PM EST Clinical Support Family Medicine at [facility] [address] [place] [address] Julia Low [facility] 01/30/2025 1:30 PM EDT Laboratory Appointment Lab at [facility] Hematology Oncology [address] [place] [address] 01/30/2025 3:[address] [place] [address] Arturo Cordero MD [facility] DR HEMATOLOGY AND ONCOLOGY [place], [place] [address] 01/30/2025 4:15 PM EDT Office Visit Hematology [place] [address] Arturo Cordero MD [facility] DR [place] [address] documented as of this encounter Results * [...] have questions please contact the health care associate that requested your imaging first. ? Narrative [...] who have questions please contactthe health care associate that requested your imaging first. Leandra Lopes [...] have questions please contact the health care associate that requested your imaging first. ? Narrative [...] who have questions please contactthe health care associate that requested your imaging first. Leandrajohanny Lopes JANITOR CLEANER IMG CT ORDERABLES * US Soft Tissue [...] have questions, please contact the health care associate that requested your imaging first. ? Nakia Goetz, Staff Physician Electronically Signed Final Report ?? 11/17/2021 11:59 am Narrative 11/17/2021 12:00 PM EDT Ultrasound Soft Tissue ?(Signed Final 11/17/2021 11:59 am) Neck Left PATIENT INFO: ID #: ? [id number] ?: ??[birth year] (61 yrs)(F) Name: ? PATIENCE MANJARREZ ? Visit Date: 11/17/2021 11:42 am PERFORMED BY: Performed By: ? Diana Lowe RDMS Attending: ?Nakia Goetz MD. Referred By: ?LEANDRA LOPES Location: ? [place] SERVICE(S) PROVIDED: USTN - Soft Tissue Neck or Head - [id number] ? [id number] INDICATIONS: History of left eye conjunctival melanoma [...] am) Neck Left PATIENT INFO: ID #: [id number] : [birth year] (61 yrs)(F) Name: PATIENCE MANJARREZ Visit Date: 11/17/2021 11:42 am PERFORMED BY: Performed By: Diana Lowe RDMS Attending: Nakia Goetz MD Referred By: LEANDRA LOPES Location: [facility] SERVICE(S) PROVIDED: USTN - Soft Tissue Neck or Head - [id number] INDICATIONS: History of left eye conjunctival melanoma [...] have questions, please contact the health care associate that requested your imaging first. Nakia Goetz, Staff Physician Electronically Signed Final Report 11/17/2021 11:59 am Leandra Lopes APRN IMG US GEN ORDERAB LES documented in this encounter Visit Diagnoses Diagnosis Malignant melanoma of conjunctiva, left Malignant melanoma, unspecified site Malignant melanoma of conjunctiva, left Malignant melanoma, unspecified site Malignant melanoma of conjunctiva, left Malignant melanoma, unspecified site documented in this encounter Care Teams Ophthalmic Aide Relationship Specialty Start Date End Date Luis E Narayan MD [facility] [address] [place] [address] PCP - General Family Medicine 03/26/19 01/19/22 documented as of this encounter
--- OUTSIDE RECORDS SUMMARY | 2024-04-13 15:47 | XMS_ITS | Encounter Summary ---
Author Organization [facility] Address [facility] [place] [address] Care Team Providers Care Retail Marketing Manager Name Role Phone Luis E Narayan MD Primary Care Provider [phone]- [phone] Encounter Details Date Type Department Care Team (Late st Contact Info) Description 05/07/2021 Refill Family Medicine at [facility] [address] [place] [address] Luis E Narayan MD [facility] [address] [place] [address] Social History Tobacco Use Types Packs/Day Years [...] slept in a jail (including now)? No 02/03/2021 Sex and Gender [...] 05/01/2024 11:20 AM EDT Appointment Mammography/[place] [address] Rodney Padilla MD [address] [facility] [place], [place] [address] 05/01/2024 1:45 PM EDT Office [place] [address] Juanpablo Hernandez MD [facility] [place] [address] 05/23/2024 2:45 PM EST Clinical Support Family Medicine at [facility] [address] [place] [address] Julia Low, [facility] 01/30/2025 1:30 PM EDT Laboratory Appointment Lab at [facility] Hematology Oncology [address] [place] [address] 01/30/2025 3:[address] [place] [address] Arturo Cordero MD [facility] DR [place] [address] 01/30/2025 4:15 PM EDT Office Visit Hematology [place] [address] Arturo Cordero MD [facility] [place] [address] documented as of this encounter Visit Diagnoses Not on filedocumented in this encounter Care Teams Retail Marketing Manager Relationship Specialty Start Date End Date Luis E Narayan MD [facility] [address] [place] [address] PCP - General Family Medicine 03/26/19 01/19/22 documented as of this encounter
--- OUTSIDE RECORDS SUMMARY | 2024-04-13 15:47 | XMS_ITS | Encounter Summary ---
Author Organization [facility] [place] [address] Care Team Providers Care Graphic Design Teacher Name Role Phone Luis E Narayan MD Primary Care Provider [phone]- [phone] Reason for Visit * Reason Onset Date Comments Prior Authorization 04/06/2021 Omeprazole Encounter Details Date Type Department Care Team (Late st Contact Info) Description 04/06/2021 Telephone Family Medicine at [facility] [address] [place] [address] Arlene Palomo, HEALTH ASSOCIATE Prior Authorization (Omeprazole) Social History Tobacco Use [...] Date: 04/06/2021 End Date: 07/06/2021 Case/Reference #: [id number] See Approval Letter in scanned documents. Additional Notes: * Telephone Encounter - Arlene Palomo CMA - 04/06/2021 7:48 AM EDT Medication Prior Authorization for Primary [place] [address] Request received via: Message Patient: Alize Gramajo Patient : 1960 Insurance Company: [place] Medicaid Sent via: Vacation Listing Service [place]: [id number] Physician: Luis E Narayan MD ?? Medication [...] 05/01/2024 11:20 AM EDT Appointment Mammography[place] [phone] Rodney Padilla MD [address] [place] [address] 05/01/2024 1:45 PM EDT [place] [address] Juanpablo Hernandez MD [facility] [place] [address] 05/23/2024 2:45 PM EST Clinical Support [facility] at [facility] [address] [place] [address] Julia Low [facility] 01/30/2025 1:30 PM EDT Laboratory Appointment Lab at [facility] Hematology Oncology [address] [place] [address] 01/30/2025 3:[address] [place] [place] [address] Arturo Cordero MD [facility] [place] [address] 01/30/2025 4:15 PM EDT Office Visit [place] [address] Arturo Cordero MD [facility] [place] [address] documented as of this encounter Visit Diagnoses Not on filedocumented in this encounter Care Teams Graphic Design Teacher Relationship Specialty Start Date End Date Luis E Narayan MD [facility] [address] [place] [address] PCP - General Family Medicine 03/26/19 01/19/22 documented as of this encounter
--- OUTSIDE RECORDS SUMMARY | 2024-04-13 15:47 | XMS_ITS | Encounter Summary ---
Author Organization [facility] [place] [address] Care Team Providers Care Electric Pile Driver Operator Name Role Phone Luis E Narayan MD Primary Care Provider Reason for Visit * Reason Comments Melanoma Encounter Details Date Type Department Care Team (Late st Contact Info) Description 07/27/2021 8:45 AM EST Office [place] [address] Juanpablo Hernandez MD [facility] [place] [address] Malignant melanoma of conjunctiva, left s/p excision [...] 05/01/2024 11:20 AM EDT Appointment Mammography/[place] [address] Rodney Padilla MD [address] [facility] [place], [place] [phone] 05/01/2024 1:45 PM EDT Office [place] [address] Juanpablo Hernandez MD [facility] [place] [address] 05/23/2024 2:45 PM EST Clinical Support Family Medicine at [facility] [address] [place] [address] Devante Julia Prabhu, [facility] 01/30/2025 1:30 PM EDT Laboratory Appointment Lab at [facility] Hematology Oncology [address] [place] [address] 01/30/2025 3:[address] [place] [address] Arturo Cordero MD [facility] [address] [place] [address] 01/30/2025 4:15 PM EDT Office Visit Hematology [place] [address] Arturo Cordero MD [facility] [address] [place] [address] documented as of this encounter Procedures Procedure [...] left documented in this encounter Care Teams Electric Pile Driver Operator Relationship Specialty Start Date End Date Luis E Narayan MD [facility] DR LILI [place] [address] PCP - General Family Medicine 03/26/19 01/19/22 documented as of this encounter
--- OUTSIDE RECORDS SUMMARY | 2024-04-13 15:47 | XMS_ITS | Encounter Summary ---
Author Organization [facility] [place] [address] Care Team Providers Care Instructional Materials Director Name Role Phone Daryn Garrett MD Primary Care Provider Reason for Visit * Reason Onset Date Comments Medication Refill 07/02/2021 Encounter Details Date Type Department Care Team (Late st Contact Info) Description 07/02/2021 Refill Family Medicine at [facility] [address] [place] [address] Bonny Emanuel MD [address] [place] [address] Social History Tobacco Use Types Packs/Day Years [...] 05/01/2024 11:20 AM EDT Appointment Mammography/[place] [address] Rodney Padilla MD [address] [place] [address] 05/01/2024 1:45 PM EDT Office [place] [address] Juanpablo Hernandez MD [facility] [place] [address] 05/23/2024 2:45 PM EST Clinical Support Family Medicine at [facility] [address] [place] [address] Julia Low [facility] 01/30/2025 1:30 PM EDT Laboratory Appointment Lab at [facility] Hematology Oncology [address] [place] [address] 01/30/2025 3:[address] [place] [address] Arturo Cordero MD [facility] H[place]ATOLOG[place] [address] 01/30/2025 4:15 PM EDT Office Visit Hematology [place] [address] Arturo Cordero MD [facility] [place]ATOLOG[place] [address] documented as of this encounter Visit Diagnoses Not on filedocumented in this encounter Care Teams Instructional Materials Director Relationship Specialty Start Date End Date Daryn Garrett MD [facility] DR LILI [place] [address] PCP - General 04/10/24 documented as of this encounter
--- OUTSIDE RECORDS SUMMARY | 2024-04-13 15:47 | XMS_ITS | Encounter Summary ---
Author Organization [facility] Address [facility] [place] [address] Care Team Providers Care Representative Personal Service Name Role Phone Luis E Narayan MD Primary Care Provider [phone] Reason for Visit * Reason Onset Date Comments Prior Authorization 08/06/2021 Ozempic (0.2 5 or 0.5 MG/DOSE) 2MG/1.5ML pen-injectors Encounter Details Date Type Department Care Team (Late st Contact Info) Description 08/06/2021 Telephone Family Medicine at [facility] [address] [place] [phone] Aida Aguayo, [facility] Prior Authorization (Ozempic (0.25 or 0.5 MG/DOSE) [...] Awaiting response from insurance. [employer] Anderson: [id number] * Telephone Encounter - Aida Aguayo MA - 08/06/2021 2:08 PM EST PA submitted. Awaiting response from insurance. * Telephone Encounter - Aida Aguayo MA - 08/06/2021 1:55 PM EST Medication Prior Authorization Request received via: [facility] Patient: Alize Gramajo Patient : 1960 Insurance Company: [employer] Sent via: [facility] Anderson: [id number] Physician: Luis E Narayan MD Medication Requested: [...] 05/01/2024 11:20 AM EDT Appointment Mammography/[place] [address] Rodney Padilla MD [address] [place] [address] 05/01/2024 1:45 PM EDT Office [place] [address] Juanpablo Hernandez MD [facility] [address] 05/23/2024 2:45 PM EST Clinical Support Family Medicine at [facility] [address] [place] [address] Julia Low RPH 01/30/2025 1:30 PM EDT Laboratory Appointment Lab at [facility] Hematology Oncology [address] [place] [address] 01/30/2025 3:[address] [place] [address]1000 Arturo Cordero MD [facility] DR [place] [address] 01/30/2025 4:15 PM EDT Office Visit Hematology [place] [address] Arturo Cordero MD [facility] DR [place] [address] documented as of this encounter Visit Diagnoses Not on filedocumented in this encounter Care Teams Representative Personal Service Relationship Specialty Start Date End Date Luis E Narayan MD [facility] DR LIL[address] [place] [address] PCP - General Family Medicine 03/26/19 01/19/22 documented as of this encounter
--- OUTSIDE RECORDS SUMMARY | 2024-04-13 15:47 | XMS_ITS | Encounter Summary ---
Author Organization [facility] [place] [address] Care Team Providers Care Folder Operator Name Role Phone Luis E Narayan MD Primary Care Provider [phone] Reason for Referral * Consultation (Routine) - Closed Specialty Diagnoses / Procedures Referred By Gonzalez kumari Referred To Contact Family Medicine Diagnoses Type 2 diabetes mellitus with other specified complication, without long-term current use of insulin Tamera Khan APRN [facility] [place] [address] Julia Low, [facility] Referral ID Status Reason Start Date Expiration Date V isits Requested Visits Authorized [id number] Closed Assume Subset of Care 06/14/2021 06/14/2022 [...] PM EST Office Visit Family Medicine at [facility] [address] [place] [address] Celina Narayan MD [facility] [address] [place]ALK[place], [place] [phone] Diarrhea, unspecified type; Type 2 diabetes mellitus [...] - POCT Fingerstick Glucose - Referral to [facility] (Primary Care Use Only) - POCT [...] the patient in person Pertinent History: Per HEALTH EDUCATOR note Pertinent Exam: Per HEALTH EDUCATOR note Major issues addressed: Per HEALTH EDUCATOR note Plan: Per HEALTH EDUCATOR note documented in this encounter Plan of Treatment Upcoming Encounters Date Type Department Care Team (Late st Contact Info) Description 05/01/2024 11:20 AM EDT Appointment Mammography/[place] [address] Rodney Padilla MD [address] [place] [place] [address] 05/01/2024 1:45 PM EDT [place] [address] Juanpablo Hernandez MD [facility] [place] [address] 05/23/2024 2:45 PM EST Clinical Support Family Medicine at [facility] [address] [place] [address] Julia Low [facility] 01/30/2025 1:30 PM EDT Laboratory Appointment Lab at [facility] Hematology Oncology [address] [place] [address] 01/30/2025 3:[address] [place] [place] [address] Arturo Cordero MD [facility] DR [place] [address] 01/30/2025 4:15 PM EDT Office Visit [place]ology [place] [address] Arturo Cordero MD [facility] DR [place] [address] Scheduled Referrals Name Type Priority Associated Diagnoses Orde r Schedule Referral to [facility] (Primary Care Use Only) Outpatient Referral [...] 100 60 - 199 mg/dl Tamera Khan HEALTH EDUCATOR POINT OF CARE TEST O RDERABLES * [...] sinus documented in this encounter Care Teams Folder Operator Relationship Specialty Start Date End Date Luis E Narayan MD [facility] [place] [address] PCP - General Family Medicine 03/26/19 01/19/22 documented as of this encounter
--- OUTSIDE RECORDS SUMMARY | 2024-04-13 15:47 | XMS_ITS | Encounter Summary ---
Author Organization [facility] Address [facility] [place] [address] Care Team Providers Care Superintendent Production Name Role Phone Luis E Narayan MD Primary Care Provider [phone] Reason for Visit * Reason Comments Diabetes * Consultation (Routine) - Closed Specialty Diagnoses / Procedures Referred By Gonzalez kumari Referred To Contact Family Medicine Diagnoses Type 2 diabetes mellitus with other specified complication, without long-term current use of insulin Tamera Khan, [facility] [address] [place] [address] Julia Low [facility] Referral ID Status Reason Start Date Expiration Date V isits Requested Visits Authorized [id number] Closed Assume Subset of Care 06/14/2021 06/14/2022 1 1 Encounter Details Date Type Department Care Team (Late st Contact Info) Description 07/27/2021 11:00 AM EST Clinical Support Family Medicine at [facility] [address] [place] [address] Julia oLw [facility] Type 2 diabetes [...] mg BID ?? Sent testing supplies to [facility] ?? Will recommend Ozempic 0.25 mg once [...] antithrombotic long-term use, Arthritis, Asthma, Atherosclerosis of [place] 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 [...] # of Missed doses/week None - Uses [facility] - rx insurance [facility] [id number] - Needs testing supplies - would prefer [...] not want to eat every day Lunch: Anderson with ham/turkey jamaican cheese crisostomo and mustard with Doritos Dinner: [...] area transportation options [] Languages other than Sudanese: Tabulating Supervisor services provided No [] Allowances for cultural diversity: meal plan will be tailored for cultural food shavon [] Hearing: Map And Chart Mounter provided No [] Vision impaired: print augmentation [...] 180 tablet 1 ??? FreeStyle Sanjana 2 [place] Misc 1 each by Other route daily. [...] 0 ??? fluticasone propionate (FLONASE) 50 mcg/actuation [place], Suspension 1 spray by Each Nare route [...] 09/07/2005 TDAP 04/09/2019 , 06/24/2011 Prescription Insurance: [facility] [id number] Assessment and Recommendations: 1. Diabetes Goals of [...] for the individual, but in general the [place] [employer] recommends a fasting blood sugar [...] mg BID ?? Sent testing supplies to [facility] ?? Will recommend Ozempic 0.25 mg once [...] made at the appointment and that [facility] is providing recommendations (summary located at top of note) for provider review and follow up. Julia Low RPH 07/27/21 documented in this encounter Plan of Treatment Upcoming Encounters Date Type Department Care Team (Late st Contact Info) Description 05/01/2024 11:20 AM EDT Appointment Mammography/[place] [address] Rodney Padilla MD [address] [place] [address] 05/01/2024 1:45 PM EDT [place] [address] Juanpablo Hernandez MD [facility] [place] [address] 05/23/2024 2:45 PM EST Clinical Support Family Medicine at [facility] [address] [place] [phone] Julia Low [place] 01/30/2025 1:30 PM EDT Laboratory Appointment Lab at [facility] Hematology Oncology [address] [place] [address] 01/30/2025 3:[address] [place] [place] [address] Arturo Cordero MD [facility] DR [place] [address] 01/30/2025 4:15 PM EDT Office Visit [place] [address] Arturo Cordero MD [facility] [place] [address] documented as of this encounter Visit Diagnoses Diagnosis Type 2 diabetes mellitus without long-term current use of insulin- Primary documented in this encounter Care Teams Superintendent Production Relationship Specialty Start Date End Date Luis E Narayan MD [facility] [address] [place] [address] PCP - General Family Medicine 03/26/19 01/19/22 documented as of this encounter
--- OUTSIDE RECORDS SUMMARY | 2024-04-13 15:47 | XMS_ITS | Encounter Summary ---
Author Organization [facility] [place] [address] Care Team Providers Care Finishing Operator Name Role Phone Luis E Narayan MD Primary Care Provider Encounter Details Date Type Department Care Team (Late st Contact Info) Description 08/19/2021 Telephone Family Medicine at [address] [place] [address] Thomas Tyson, RN Social History Tobacco Use [...] [] Established patient [] Will be in [place] or [place] at time of visit [] Has access to Internet smart phone or computer with camera [] Would need phone visit HTI Screen: MUST be TH [] cough or fever AND Travelled internationally in past month to [facility] or [place] [] COVID-19 symptoms and unvaccinated [...] 05/01/2024 11:20 AM EDT Appointment Mammography/[place] [address] Rodney Padilla MD [address] [place] [address] 05/01/2024 1:45 PM EDT Office [place] [address] Juanpablo Hernandez MD [facility] [place] [address] 05/23/2024 2:45 PM EST Clinical Support Family Medicine at [facility] [address] [place] [address] Julia Low [facility] 01/30/2025 1:30 PM EDT Laboratory Appointment Lab at [facility] Hematology Oncology [address] [place] [address] 01/30/2025 3:[address] [place] [address] Arturo Cordero MD [facility] [place] [address] 01/30/2025 4:15 PM EDT Office Visit Hematology [place] [address] Arturo Cordero MD [facility] [place] [address] documented as of this encounter Visit Diagnoses Not on filedocumented in this encounter Care Teams Finishing Operator Relationship Specialty Start Date End Date Luis E Narayan MD [facility] DR LILI WALKER-[facility] [address] PCP - General Family Medicine 03/26/19 01/19/22 documented as of this encounter
--- OUTSIDE RECORDS SUMMARY | 2024-04-13 15:47 | XMS_ITS | Encounter Summary ---
Author Organization [facility] Address [facility] [place] [address] Care Team Providers Care Bow Stapler Name Role Phone Luis E Narayan MD Primary Care Provider [phone] Reason for Visit * Reason Onset Date Comments Medication Refill 03/30/2021 Encounter Details Date Type Department Care Team (Late st Contact Info) Description 03/30/2021 Refill Family Medicine at [facility] [address] [place] [address] Luis E Narayan MD [facility] DR [address]IL[address] AZEVEDO-[place] [address] Social History Tobacco Use Types Packs/Day Years [...] 05/01/2024 11:20 AM EDT Appointment Mammography/[place] [address] Rodney Padilla MD [address] [place] [address] 05/01/2024 1:45 PM EDT Office [place] [address] Juanpablo Hernandez MD [facility] DR [place] [address] 05/23/2024 2:45 PM EST Clinical Support Family Medicine at [facility] [address] [place] [address] Julia Low [facility] 01/30/2025 1:30 PM EDT Laboratory Appointment Lab at [facility] Hematology Oncology [address] [place] [address] 01/30/2025 3:[address] [place] [address] Arturo Cordero MD [facility] HEMATOLOGY [place] [address] 01/30/2025 4:15 PM EDT Office Visit Hematology [place] [address] Arturo Cordero MD [facility] HEMATOLOGY [place] [address] documented as of this encounter Visit Diagnoses Not on filedocumented in this encounter Care Teams Bow Stapler Relationship Specialty Start Date End Date Luis E Narayan MD [facility] [address]-[place] [address] PCP - General Family Medicine 03/26/19 01/19/22 documented as of this encounter
--- OUTSIDE RECORDS SUMMARY | 2024-04-13 15:47 | XMS_ITS | Encounter Summary ---
Author Organization [facility] [place] [address] Care Team Providers Care Four Slide Machine Operator Name Role Phone Luis E Narayan MD Primary Care Provider Reason for Referral * Diagnostic Test (Routine) - Closed Specialty Diagnoses / Procedures Referred By Contac t Referred To Contact Radiology Diagnoses Malignant melanoma of conjunctiva, left Procedures CT Chest Abdomen Pelvis w Contrast (Generic) Leandra Lopes APRN [facility] [address] [place] [address] [facility] [place] [address] Referral ID Status Reason Start Date Expiration Date V isits Requested Visits Authorized [id number] Closed Specialty Service Requested 12/17/2020 06/18/2022 1 1 Reason for Visit * Diagnostic Test (Routine) - Closed Specialty Diagnoses / Procedures Referred By Contac t Referred To Contact Radiology Diagnoses Malignant melanoma of conjunctiva, left Procedures CT Chest Abdomen Pelvis w Contrast (Generic) Leandra Lopes APRN [facility] [address] [place] [address] [facility] [place] [address] Referral ID Status Reason Start Date Expiration Date V isits Requested Visits Authorized [id number] Closed Specialty Service Requested 12/17/2020 06/18/2022 1 1 Encounter Details Date Type Department Care Team (Late st Contact Info) Description 06/24/2021 12:31 PM EST - 06/24/2021 12:42 PM EST Hospital Encounter CT Scan at [facility] [place] [address] Leandra Lopes APRN [facility] [address] [place] [address] Malignant melanoma of conjunctiva, left Discharge Disposition: [...] tablet 1 01/08/2021 08/02/2021 FreeStyle Sanjana 2 [place] MiscIndications:diabetes mellitus 1 each by Other route [...] 09/15/2020 09/19/2023 fluticasone propionate (FLONASE) 50 mcg/actuation [place], Suspension 1 spray by Each Nare route [...] 05/01/2024 11:20 AM EDT Appointment Mammography/[place] [address] Rodney Padilla MD [address] [place] [address] 05/01/2024 1:45 PM EDT Office [place] [address] Juanpablo Hernandez MD [facility] [place] [place] [address] 05/23/2024 2:45 PM EST Clinical Support [facility] [address] [place] [address] Julia Low [facility] 01/30/2025 1:30 PM EDT Laboratory Appointment Lab at [facility] Hematology Oncology [address] [place] [address] 01/30/2025 3:[address] [place] [address] Arturo Cordero MD [facility] [place] [address] 01/30/2025 4:15 PM EDT Office Visit Hematology [place] [address] Arturo Cordero MD [facility] DR HEMATOLOGY AND ONCOLOGY [place], [place] [address] documented as of this encounter Procedures Procedure [...] who have questions please contact the health field care manager that requested your imaging first. ? Electronically signed by: Paulina Saldivar MD, [facility] ([phone]), at 06/24/2021 4:35 PM Narrative 06/24/2021 4:35 [...] patients who have questions please contactthe health field care manager that requested your imaging first. Leandra Lopes APRN [facility] ORDERABLES documented in this encounter Visit [...] mLs documented in this encounter Care Teams Four Slide Machine Operator Relationship Specialty Start Date End Date Luis E Narayan MD [facility] [place] [address] PCP - General Family Medicine 03/26/19 01/19/22 documented as of this encounter
--- OUTSIDE RECORDS SUMMARY | 2024-04-13 15:47 | XMS_ITS | Encounter Summary ---
Author Organization [facility] [place] [address] Care Team Providers Care Form Setter Steel Forms Name Role Phone Luis E Narayan MD Primary Care Provider Encounter Details Date Type Department Care Team (Latest Contact Info) Description 07/27/2021 7:42 AM EST - 07/27/2021 11:59 PM EST Hospital Encounter Mammography/[place] [address] Luis E Narayan MD [facility] [address] LIL[address] W[place] [address] Visit for screening mammogram Discharge Disposition: Home [...] tablet 1 01/08/2021 08/02/2021 FreeStyle Sanjana 2 [place] MiscIndications:diabetes mellitus 1 each by Other route [...] 09/15/2020 09/19/2023 fluticasone propionate (FLONASE) 50 mcg/actuation [place], Suspension 1 spray by Each Nare route [...] 05/01/2024 11:20 AM EDT Appointment Mammography/[place] [address] Rodney Padilla MD [address] [place] [address] 05/01/2024 1:45 PM EDT Office [place] [address] Juanpablo Hernandez MD [facility] [place] [address] 05/23/2024 2:45 PM EST Clinical Support Family Medicine at [facility] [address] [place] [address] Julia Low [facility] 01/30/2025 1:30 PM EDT Laboratory Appointment Lab at [facility] Hematology Oncology [address] [place] [address] 01/30/2025 3:[address] [place] [address] Arturo Cordero MD [facility] DR HEMATOLOGY [place] [address] 01/30/2025 4:15 PM EDT Office Visit Hematology [place] [address] Arturo Cordero MD [facility] DR HEMATOLOGY [place] [address] documented as of this encounter Procedures Procedure [...] mammogram documented in this encounter Care Teams Form Setter Steel Forms Relationship Specialty Start Date End Date Luis E Narayan MD [facility] [address] [place] [address] PCP - General Family Medicine 03/26/19 01/19/22 documented as of this encounter
--- OUTSIDE RECORDS SUMMARY | 2024-04-13 15:47 | XMS_ITS | Encounter Summary ---
Author Organization [facility] [place] [address] Care Team Providers Care Business Line Controller Name Role Phone Luis E Narayan MD Primary Care Provider +1- [phone] Encounter Details Date Type Department Care Team (Late st Contact Info) Description 03/19/2021 10:52 AM EDT - 03/19/2021 11:59 PM EDT Hospital [place] [address] Leandra Black, GRE[place] MAN [facility] [address] [place] [address] Malignant melanoma of conjunctiva, left Discharge Disposition: [...] tablet 1 01/08/2021 08/02/2021 FreeStyle Sanjana 2 [place] MiscIndications:diabete s mellitus 1 each by Other [...] 09/15/2020 09/19/2023 fluticasone propionate (FLONASE) 50 mcg/actuation [place], Suspension 1 spray by Each Nare route [...] 05/01/2024 11:20 AM EDT Appointment Mammography/[place] [address] Rodney Padilla MD [address] [place] [address] 05/01/2024 1:45 PM EDT Office [place] [address] Juanpablo Hernandez MD [facility] [place] [address] 05/23/2024 2:45 PM EST Clinical Support Family Medicine at [facility] [address] [place] [address] Julia Low, [facility] 01/30/2025 1:30 PM EDT Laboratory Appointment Lab at [facility] [place]ematology Oncology [address] [place] [address] 01/30/2025 3:[address] [place] [address] Arturo Cordero MD [facility] [address] [place] [address] 01/30/2025 4:15 PM EDT Office Visit Hematology [place] [address] Arturo Cordero MD [facility] [address] [place] [address] documented as of this encounter Procedures Procedure [...] No suspicious findings. Electronically signed by: Faina Stahl MD, [facility] ([phone]), at 03/19/2021 12:07 PM Thank you for letting us participate in the care of this patient. If you are a health care provider and have any questions regarding this report, please contact the number above. For patients who have questions, please contact the health primary care pediatrician that requested your imaging first. ?Faina Hernadez, Staff Physician Electronically Signed Final Report ?? 03/19/2021 12:13 pm Narrative 03/19/2021 12:13 PM EDT Ultrasound Soft Tissue ?(Signed Final 03/19/2021 12:13 pm) Neck or Head Report PATIENT INFO: ID #: ? [id number] ?: ??[birth year] (60 yrs)(F) Name: ? PATIENCE MANJARREZ ? Visit Date: 03/19/2021 10:54 am PERFORMED BY: Performed By: ? Tonia Lopes RDMS Attending: ?Favio COLVIN, Faina Nielsen Referred By: ?LEANDRA BLACK Location: ? [place] SERVICE(S) PROVIDED: USTN - Soft Tissue Neck or Head - [id number] ? [id number] INDICATIONS: History of left eye conjunctival melanoma [...] or Head Report PATIENT INFO: ID #: [id number] : 58 (60 yrs)(F) Name: PATIENCE MANJARREZ Visit Date: 03/19/2021 10:54 am PERFORMED BY: Performed By: Tonia Lopes RDMS Attending: Faina Stahl MD Referred By: LEANDRA BLACK Location: [place] SERVICE(S) PROVIDED: USTN - Soft Tissue Neck or Head - [id number] INDICATIONS: History of left eye conjunctival melanoma [...] who have questions, please contact the health primary care pediatrician that requested your imaging first. Faina Hernadez, Staff Physician Electronically Signed Final Report 03/19/2021 12:13 pm Leandra Blcak APRN IMG US GEN ORDERAB LES documented in this encounter Visit Diagnoses Diagnosis Malignant melanoma of conjunctiva, left documented in this encounter Care Teams Business Line Controller Relationship Specialty Start Date End Date Luis E Narayan MD [facility] DR [address] [place] [address] PCP - General Family Medicine 03/26/19 01/19/22 documented as of this encounter
--- OUTSIDE RECORDS SUMMARY | 2024-04-13 15:48 | XMS_ITS | Encounter Summary ---
Author Organization [facility] Address [facility] [place] [address] Care Team Providers Care Car Dumper Operator Helper Name Role Phone Luis E Narayan MD Primary Care Provider +1- [phone] Reason for Visit * Reason Onset Date Comments Medication Refill 03/18/2021 Encounter Details Date Type Department Care Team (Late st Contact Info) Description 03/18/2021 Refill Family Medicine at [facility] [address] [place] [address] Luis E Narayan MD [facility] DR [address] [place]EV[place] [address] Social History Tobacco Use Types Packs/Day Years [...] 05/01/2024 11:20 AM EDT Appointment Mammography[place] [address] Rodney Padilla MD [address] [place] [address] 05/01/2024 1:45 PM EDT Office [place] [address] Juanpablo Hernandez MD [facility] [place] [address] 05/23/2024 2:45 PM EST Clinical Support Family Medicine at [facility] [address] [place] [address] Julia Low [facility] 01/30/2025 1:30 PM EDT Laboratory Appointment Lab at [facility] Hematology Oncology [address] [place] [address] 01/30/2025 3:[address] [place] [address] Arturo Cordero MD [facility] H[place]AT[place] [address] 01/30/2025 4:15 PM EDT Office Visit Hematology [place] [address] Arturo Cordero MD [facility] [place]ATOLOG[place] [address] documented as of this encounter Visit Diagnoses Not on filedocumented in this encounter Care Teams Car Dumper Operator Helper Relationship Specialty Start Date End Date Luis E Narayan MD [facility] [address] [place] [address] PCP - General Family Medicine 03/26/19 01/19/22 documented as of this encounter
--- OUTSIDE RECORDS SUMMARY | 2024-04-13 15:48 | XMS_ITS | Encounter Summary ---
Author Organization [facility] [place] [address] Care Team Providers Care Hog Confinement System Manager Name Role Phone Luis E Narayan MD Primary Care Provider [phone]- [phone] Reason for Visit * Reason Onset Date Comments Appointment 01/25/2021 Encounter Details Date Type Department Care Team (Late st Contact Info) Description 01/25/2021 [place] [address] Juanpablo Hernandez MD [facility] [place] [address] Appointment Social History Tobacco Use Types Packs/Day [...] slept in a fpc (including now)? No 02/03/2021 Sex and Gender [...] 05/01/2024 11:20 AM EDT Appointment Mammography/[place] [address] Rodney Padilla MD [address] [place] [address] 05/01/2024 1:45 PM EDT Office Visit Ophthalmology at [place] [phone] Juanpablo Hernandez MD [facility] [place] [address] 05/23/2024 2:45 PM EST Clinical Support Family Medicine at [facility] [address] [place] [address] Julia Low [facility] 01/30/2025 1:30 PM EDT Laboratory Appointment Lab at [facility] Hematology Oncology [address] [place] [address] 01/30/2025 3:[address] [place] [address] Arturo Cordero MD [facility] DR HEMATOLOG[place] [address] 01/30/2025 4:15 PM EDT Office Visit Hematology [place] [address] Arturo Cordero MD [facility] DR HEMATOLOGY [place] [address] documented as of this encounter Visit Diagnoses Not on filedocumented in this encounter Care Teams Hog Confinement System Manager Relationship Specialty Start Date End Date Luis E Narayan MD [facility] DR L[address] WALK[place] [address] PCP - General Family Medicine 03/26/19 01/19/22 documented as of this encounter
--- OUTSIDE RECORDS SUMMARY | 2024-04-13 15:48 | XMS_ITS | Encounter Summary ---
Author Organization [facility] [place] [address] Care Team Providers Care Radiographer Technologist Name Role Phone Luis E Narayan MD Primary Care Provider Encounter Details Date Type Department Care Team (Late st Contact Info) Description 11/03/2020 Telephone Family Medicine at [facility] [address] [place] [address] Thania Flores, RN Social History Tobacco Use [...] Department Care Team (Cornelius Contact Info) Description 05/01/2024 11:20 AM EDT Appointment Mammography/[place] [address] Rodney Padilla MD [address] [place] [address] 05/01/2024 1:45 PM EDT Office [place] [address] Juanpablo Hernandez MD [facility] [place] [address] 05/23/2024 2:45 PM EST Clinical Support Family Medicine at [facility] [address] [place] [address] Julia Low [facility] 01/30/2025 1:30 PM EDT Laboratory Appointment Lab at [facility] Hematology Oncology [address] [place] [id number] 01/30/2025 3:[address] [place] [address] Arturo Cordero MD [facility] [address] [place] [address] 01/30/2025 4:15 PM EDT Office Visit Hematology [place] [address] Arturo Cordero MD [facility] [address] [place] [address] documented as of this encounter Visit Diagnoses Not on filedocumented in this encounter Care Teams Radiographer Technologist Relationship Specialty Start Date End Date Luis E Narayan MD [facility] [address] LIL[address] WALKER-[facility] [place] [address] PCP - General Family Medicine 03/26/19 01/19/22 documented as of this encounter
--- OUTSIDE RECORDS SUMMARY | 2024-04-13 15:48 | XMS_ITS | Encounter Summary ---
Author Organization [facility] [place] [address] Care Team Providers Care Audio Tape Librarian Name Role Phone Luis E Narayan MD Primary Care Provider [phone] Encounter Details Date Type Department Care Team (Late st Contact Info) Description 09/21/2020 Telephone Family Medicine at [facility] [address] [place] [address] Alejandra Posadas, RN Social History Tobacco Use [...] Posadas RN - 09/23/2020 12:24 PM EDT Custom Seamstress returned call. He was wondering when patient was referred to [facility], advised referrals were made 05/10/2019 and 08/05/2019. Gave him their department number to speak about the wait time. * Telephone Encounter - Alejandra Posadas RN - 09/23/2020 11:56 AM EDT Faxed letter. Left massage at juvenile corrections officer's office that I did this and invited him to call if anything else is needed of primary care. Placed in Medical records * Telephone Encounter - Luis E Narayan MD - 09/23/2020 11:52 AM EDT Letter done. * Telephone Encounter - Alejandra Posadas RN - 09/21/2020 8:53 AM EDT Called placed to Law office at [phone] They would like fax of prior communications sent back to them with those dates as well as a correspondence dated today with PCP's message: Dr. Narayan is not trained or equipped to make disability determinations. He believes that there are several specialists in the community who do this work, although he can't make any specific referrals. Law office fax is [phone] Forms are in media dated 08/20/20 Message 08/21 states forms were faxed back, although I don't see forms in scan docs with PCP commenton them documented in this encounter Plan of Treatment Upcoming Encounters Date Type Department Care Team (Late st Contact Info) Description 05/01/2024 11:20 AM EDT Appointment Mammography/[place] [address] Rodney Padilla MD [address] [place] [address] 05/01/2024 1:45 PM EDT Office [place] [address] Juanpablo Hernandez MD [facility] [place] [address] 05/23/2024 2:45 PM EST Clinical Support Family Medicine at [facility] [address] [place] [address] Julia Low [facility] 01/30/2025 1:30 PM EDT Laboratory Appointment Lab at [facility] Hematology Oncology [address] [place] [address] 01/30/2025 3:[address] [place] [address] Arturo Cordero MD [facility] [place] [address] 01/30/2025 4:15 PM EDT Office Visit Hematology [place] [address] Arturo Cordero MD [facility] [place] [address] documented as of this encounter Visit Diagnoses Not on filedocumented in this encounter Care Teams Audio Tape Librarian Relationship Specialty Start Date End Date Luis E Narayan MD [facility] [address] [place] [address] PCP - General Family Medicine 03/26/19 01/19/22 documented as of this encounter
--- OUTSIDE RECORDS SUMMARY | 2024-04-13 15:48 | XMS_ITS | Encounter Summary ---
Author Organization [facility] Address [facility] [place] [address] Care Team Providers Care Motion Picture Projectionist Name Role Phone Luis E Narayan MD Primary Care Provider [phone] Encounter Details Date Type Department Care Team (Late st Contact Info) Description 01/04/2021 Ancillary Procedure Radiology Library [place] [facility] [place] [address] Luis E Narayan MD [facility] [address] AZEV[address]O-[place] [address] Social History Tobacco Use Types Packs/Day Years [...] 05/01/2024 11:20 AM EDT Appointment Mammography/[place] [address] Rodney Padilla MD [address] [place] [address] 05/01/2024 1:45 PM EDT Office [place] [address] Juanpablo Hernandez MD [facility] [place] [address] 05/23/2024 2:45 PM EST Clinical Support Family Medicine at [facility] [address] [place] [address] Julia Low RPH 01/30/2025 1:30 PM EDT Laboratory Appointment Lab at [facility] Hematology Oncology [address] [place] [address] 01/30/2025 3:[address] [place] [address] Arturo Cordero MD [facility] HEMATOLOGY [place] [address] 01/30/2025 4:15 PM EDT Office Visit Hematology [place] [address] Arturo Cordero MD [facility] HEMATOLOGY [place] [address] documented as of this encounter Procedures Procedure Name Priority Date/Time Associated Diagnosis Comments FILM LIBRARY STORAGE ONLY DX CHEST Routine 01/04/2021 12:00 AM EDT documented in this encounter Results * Film Library- Storage Only DX Chest (01/04/2021 12:00 AM EDT) Narrative [facility] - 02/15/2021 11:34 AM EDT This exam is auto-finalizing. It's purpose is for storage only. Luis E Narayan MD IMG FILM LIBRARY OR DERABLES [place], [place] documented in this encounter Visit Diagnoses Not on filedocumented in this encounter Care Teams Motion Picture Projectionist Relationship Specialty Start Date End Date Luis E Narayan MD [facility] [address] [place] [address] PCP - General Family Medicine 03/26/19 01/19/22 documented as of this encounter
--- OUTSIDE RECORDS SUMMARY | 2024-04-13 15:48 | XMS_ITS | Encounter Summary ---
Author Organization [facility] Address [facility] [place] [address] Care Team Providers Care Optical Laboratory Manager Name Role Phone Luis E Narayan MD Primary Care Provider Reason for Referral * E-Consultation (Routine) - Closed Specialty Diagnoses / Procedures Referred By Gonzalez kumari Referred To Contact Pharmacy Diagnoses Type 2 diabetes mellitus with hyperglycemia, without long-term current use of insulin Procedures eConsult to [facility] (Primary Care Use Only) Erik Cyr MD [facility] [place] [address] Referral ID Status Reason Start Date Expiration Date Visits Re quested Visits Authorized [id number] Closed 12/04/2020 12/04/2021 1 1 Reason for [...] EDT TH Visit (TeleHealth) Family Medicine at [facility] [address] [place] [address] Erik Cyr MD [facility] [place] [address] Type 2 diabetes mellitus without [...] this encounter Progress Notes * Cinda George, [facility] - 12/03/2020 2:00 PM EDT Patient contacted at [phone] Preferred phone: [phone] Patient confirms location for visit as: [place] (not eligible for telehealth visit if outside of [place] & should reschedule when back) Home address: [address] [place] [phone] If phone visit: patient verbally consents to [...] location: Home address on [place]: [place] [address] Mode of communication documented under telehealth requirements as appropriate Callback number if video visit: Preferred phone number on file: [phone] CHART REVIEW Made appointment for high blood [...] Diagnosis Code ??? 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 Altered [...] 0 ??? fluticasone propionate (FLONASE) 50 mcg/actuation [place], Suspension 1 spray by Each Nare route [...] minutes 12/10/2020: Received pharmacy e-consult recommendations: Recommend [employer] system, which they say is covered by [...] 05/01/2024 11:20 AM EDT Appointment Mammography/[place] [address] Rodney Padilla MD [address] [place] [address] 05/01/2024 1:45 PM EDT Office [place] [address] Juanpablo Hernandez MD [facility] [place] [address] 05/23/2024 2:45 PM EST Clinical Support [facility] at [facility] [address] [place] [address] Julia Low [facility] 01/30/2025 1:30 PM EDT Laboratory Appointment Lab [place] [facility] [place] [address] [place] [address] 01/30/2025 3:[address] [place] [place] [address] Arturo Cordero MD [facility] DR [place] [address] 01/30/2025 4:15 PM EDT Office Visit Hematology [place] [address] Arturo Cordero MD [facility] [place] [address] documented as of this encounter Visit Diagnoses Diagnosis Type 2 diabetes mellitus without long-term current use of insulin- Primary documented in this encounter Care Teams Optical Laboratory Manager Relationship Specialty Start Date End Date Luis E Narayan MD [facility] [address] [place] [address] PCP - General Family Medicine 03/26/19 01/19/22 documented as of this encounter
--- OUTSIDE RECORDS SUMMARY | 2024-04-13 15:48 | XMS_ITS | Encounter Summary ---
Author Organization [facility] [place] [address] Care Team Providers Care Backrest Assembler Name Role Phone Luis E Narayan MD Primary Care Provider Reason for Visit * Reason Comments Eye Problem Malignant melanoma o f conjunctiva, left Encounter Details Date Type Department Care Team (Late st Contact Info) Description 11/06/2020 3:15 PM EDT Office [place] [address] Juanpablo Hernandez MD [facility] [place] [address] Malignant melanoma of conjunctiva, left Social History [...] 05/01/2024 11:20 AM EDT Appointment Mammography/[place] [address] Rodney Padilla MD [address] [place] [place] [address] 05/01/2024 1:45 PM EDT Office [place] [address] Juanpablo Hernandez MD [facility] [place] [address] 05/23/2024 2:45 PM EST Clinical Support Family Medicine at [facility] [address] [place] [address] Julia Low, [facility] 01/30/2025 1:30 PM EDT Laboratory Appointment Lab at [facility] Hematology Oncology [address] [place] [address] 01/30/2025 3:[address] [place] [address] Arturo Cordero MD [facility] DR [place] [address] 01/30/2025 4:15 PM EDT Office Visit Hematology [place] [address] Arturo Cordero MD [facility] DR [place] [address] documented as of this encounter Visit Diagnoses Diagnosis Malignant melanoma of conjunctiva, left documented in this encounter Care Teams Backrest Assembler Relationship Specialty Start Date End Date Luis E Narayan MD [facility] [address] [place] [address] PCP - General Family Medicine 03/26/19 01/19/22 documented as of this encounter
--- OUTSIDE RECORDS SUMMARY | 2024-04-13 15:48 | XMS_ITS | Encounter Summary ---
Author Organization [facility] Address [facility] [place] [address] Care Team Providers Care Body Shop Estimator Name Role Phone Luis E Narayan MD Primary Care Provider Reason for Visit * Reason Comments Melanoma Encounter Details Date Type Department Care Team (Late st Contact Info) Description 01/20/2021 12:45 PM EDT Office [place] [address] Juanpablo Hernandez MD [facility] [place] [address] Malignant melanoma of conjunctiva, left Social History [...] 05/01/2024 11:20 AM EDT Appointment Mammography/[place] [address] Rodney Padilla MD [address] [place] [address] 05/01/2024 1:45 PM EDT Office [place] [address] Juanpablo Hernandez MD [facility] [place] [address] 05/23/2024 2:45 PM EST Clinical Support Family Medicine at [facility] [address] [place] [address] Julia Low [facility] 01/30/2025 1:30 PM EDT Laboratory Appointment Lab at [facility] Hematology Oncology [address] [place] [address] 01/30/2025 3:[address] [place] [address] Arturo Cordero MD [facility] [address] [place] [address] 01/30/2025 4:15 PM EDT Office Visit Hematology [place] [address] Arturo Cordero MD [facility] [address] [place] [address] documented as of this encounter Visit Diagnoses Diagnosis Malignant melanoma of conjunctiva, left documented in this encounter Care Teams Body Shop Estimator Relationship Specialty Start Date End Date Luis E Narayan MD [facility] [address] [place] [address] PCP - General Family Medicine 03/26/19 01/19/22 documented as of this encounter
--- OUTSIDE RECORDS SUMMARY | 2024-04-13 15:48 | XMS_ITS | Encounter Summary ---
[place] [address] Care Team Providers Care Call Center Associate Name Role Phone Luis E Narayan MD Primary Care Provider +1- [phone] Encounter Details Date Type Department Care Team (Latest Contact Info) Description 09/15/2020 12:00 PM EST Clinical [place] [address] Malika Ye Cigarette nicotine dependence without complication [...] EST ..Tobacco Treatment Consultation [place] [address] FAX: Alize Gramajo is a 59 y.o. female seen today for smoking cessation counseling. She is currently smoking [place] and does wish to quit soon. [...] in places where it is forbidden? (ex. shinto) No Yes 1 3. Which cigarette would [...] The patient has been provided with a [facility] Smoking Cessation packet and offered a Forever [...] 34 Malika Ye 09/15/[address] [facility] documented in this encounter Plan of Treatment Upcoming Encounters Date Type Department Care Team (Late st Contact Info) Description 05/01/2024 11:20 AM EDT Appointment Mammography/[place] [address] Rodney Padilla MD [address] [place] [address] 05/01/2024 1:45 PM EDT Office [place] [address] Juanpablo Hernandez MD [facility] OPHTHALMOLOGY [place], [place] [address] 05/23/2024 2:45 PM EST Clinical Support Family Medicine at [facility] [address] [place] [address] Julia Low, [facility] 01/30/2025 1:30 PM EDT Laboratory Appointment Lab at [facility] Hematology Oncology [address] [place] [address] 01/30/2025 3:[address] [place] [address] Arturo Cordero MD [facility] DR [place] [address] 01/30/2025 4:15 PM EDT Office Visit Hematology [place] [address] Arturo Cordero MD [facility] [place] [address] documented as of this encounter Visit Diagnoses Diagnosis Cigarette nicotine dependence without complication Tobacco use disorder documented in this encounter Care Teams Call Center Associate Relationship Specialty Start Date End Date Luis E Narayan MD [facility] [address] [place] [address] PCP - General Family Medicine 03/26/19 01/19/22 documented as of this encounter
--- OUTSIDE RECORDS SUMMARY | 2024-04-13 15:48 | XMS_ITS | Encounter Summary ---
Author Organization [facility] [place] [address] Care Team Providers Care Coal Conveyor Operator Name Role Phone Luis E Narayan MD Primary Care Provider +1- [phone] Reason for Visit * Reason Onset Date Comments Other 12/04/2020 Encounter Details Date Type Department Care Team (Late st Contact Info) Description 12/04/2020 Telephone Family Medicine at [facility] [address] [place] [address] Stoner, Lacie L Other Social History Tobacco [...] RN - 12/10/2020 11:31 AM EDT Called [phone]. Left voicemail asking for patient to call back. Refer to [facility] on 12/05. Was read on 12/06. * [...] to send my- message: = Offered Appointment: MA/Nurse/Behavioral Health Aide contacted via: Message: y Call: n Pager: n documented in this encounter Plan of Treatment Upcoming Encounters Date Type Department Care Team (Late st Contact Info) Description 05/01/2024 11:20 AM EDT Appointment Mammography/[place] [address] Rodney Padilla MD [address] [facility] [place] [address] 05/01/2024 1:45 PM EDT Office [place] [address] Juanpablo Hernandez MD [facility] [place] [address] 05/23/2024 2:45 PM EST Clinical Support [facility] Medicine at [facility] [address] [place] [address] Julia Low, [facility] 01/30/2025 1:30 PM EDT Laboratory Appointment Lab at [facility] Hematology Oncology [address] [place] [address] 01/30/2025 3:[address] [place] [address] Arturo Cordero MD [facility] DR HEMATOLOGY [place] [address] 01/30/2025 4:15 PM EDT Office Visit H[place]ology [place] [address] Arturo Cordero MD [facility] DR HEMATOLOGY [place] [address] documented as of this encounter Visit Diagnoses Not on filedocumented in this encounter Care Teams Coal Conveyor Operator Relationship Specialty Start Date End Date Luis E Narayan MD [facility] DR [address]ALKER[place] [address] PCP - General Family Medicine 03/26/19 01/19/22 documented as of this encounter
--- OUTSIDE RECORDS SUMMARY | 2024-04-13 15:48 | XMS_ITS | Encounter Summary ---
Author Organization [facility] [place] [address] Care Team Providers Care Candy Counter Clerk Name Role Phone Luis E Narayan MD Primary Care Provider Encounter Details Date Type Department Care Team (Late st Contact Info) Description 10/21/2020 Telephone Internal Medicine at [facility] [address] [place] [address] Post, Christine Pablo Social History Tobacco Use [...] 10/21/2020 4:18 PM EDT Good Afternoon, Clinical trade union secretary called patient and left a voicemail to please call back [facility] Primary [facility] at [phone]. When patient calls back please assist with scheduling an appointment with Luis E Narayan MD in regards to lab follow-up. Thank you, Christine documented in this encounter Plan of Treatment Upcoming Encounters Date Type Department Care Team (Late st Contact Info) Description 05/01/2024 11:20 AM EDT Appointment Mammography/[place] [address] Rodney Padilla MD [address] [place] [place] [address] 05/01/2024 1:45 PM EDT [place] [address] Juanpablo Hernandez MD [facility] [place] [address] 05/23/2024 2:45 PM EST Clinical Support Family Medicine at [facility] [address] [place] [address] Julia Low [facility] 01/30/2025 1:30 PM EDT Laboratory Appointment Lab at [facility] Hematology Oncology [address] [place] [address] 01/30/2025 3:[address] [place] [address] Arturo Cordero MD [facility] [place] [address] 01/30/2025 4:15 PM EDT Office Visit [place]ology [place] [address] Arturo Cordero MD [facility] [place] [address] documented as of this encounter Visit Diagnoses Not on filedocumented in this encounter Care Teams Candy Counter Clerk Relationship Specialty Start Date End Date Luis E Narayan MD [facility] DR [address] [place] [address] PCP - General Family Medicine 03/26/19 01/19/22 documented as of this encounter
--- OUTSIDE RECORDS SUMMARY | 2024-04-13 15:48 | XMS_ITS | Encounter Summary ---
[place] [address] Care Team Providers Care After School Driver Name Role Phone Luis E Narayan MD Primary Care Provider +1- [phone] Encounter Details Date Type Department Care Team (Late st Contact Info) Description 02/04/2021 Telephone [place] [address] Malika Ye Social History Tobacco Use Types [...] * Telephone Encounter - Malika Ye - 02/04/2021 10:21 AM EDT Alize stated [...] 05/01/2024 11:20 AM EDT Appointment Mammography/[place] [address] Rodney Padilla MD [address] [place] [place] [address] 05/01/2024 1:45 PM EDT Office [place] [address] [facility] [place] [address] 05/23/2024 2:45 PM EST Clinical Support Family Medicine at [facility] [address] [place] [address] Julia Low, [facility] 01/30/2025 1:30 PM EDT Laboratory Appointment Lab at [facility] Hematology Oncology [address] [place] [address] 01/30/2025 3:[address] [place] [address] [facility] [place] [address] 01/30/2025 4:15 PM EDT Office Visit Hematology [place] [address] [facility] [place] [address] documented as of this encounter Visit Diagnoses Not on filedocumented in this encounter Care Teams After School Driver Relationship Specialty Start Date End Date Luis E Narayan MD [facility] [address] [place] [address] PCP - General Family Medicine 03/26/19 01/19/22 documented as of this encounter
--- OUTSIDE RECORDS SUMMARY | 2024-04-13 15:48 | XMS_ITS | Encounter Summary ---
Author Organization [facility] Address [facility] [place] [address] Care Team Providers Care Flat Lock Operator Name Role Phone Luis E Narayan MD Primary Care Provider +1- [phone] Reason for Visit * Reason Onset Date Comments Medication Refill 01/07/2021 Encounter Details Date Type Department Care Team (Late st Contact Info) Description 01/07/2021 Refill Family Medicine at [facility] [address] [place] [address] Luis E Narayan MD [facility] DR [address] [place]EVED[place] [address] Type 2 diabetes mellitus without long-term current [...] 05/01/2024 11:20 AM EDT Appointment Mammography/[place] [address] Rodney Padilla MD [address] [place] [address] 05/01/2024 1:45 PM EDT [place] [address] Juanpablo Hernandez MD [facility] [place] [address] 05/23/2024 2:45 PM EST Clinical Support Family Medicine at [facility] [address] [place] [address] Julia Low [facility] 01/30/2025 1:30 PM EDT Laboratory Appointment Lab at [facility] Hematology Oncology [address] [place] [address] 01/30/2025 3:[address] [place] [address] Arturo Cordero MD [facility] DR HEMATOLOGY [place] [address] 01/30/2025 4:15 PM EDT Office Visit [place]ology [place] [address] Arturo Cordero MD [facility] DR HEMATOLOGY [place] [address] documented as of this encounter Visit Diagnoses Diagnosis Type 2 diabetes mellitus without long-term current use of insulin documented in this encounter Care Teams Flat Lock Operator Relationship Specialty Start Date End Date Luis E Narayan MD [facility] [address] [place] [address] PCP - General Family Medicine 03/26/19 01/19/22 documented as of this encounter
--- OUTSIDE RECORDS SUMMARY | 2024-04-13 15:48 | XMS_ITS | Encounter Summary ---
Author Organization [facility] Address [facility] [place] [address] Care Team Providers Care Knitting Teacher Name Role Phone Luis E Narayan MD Primary Care Provider +1- [phone] Reason for Visit * Reason Comments Follow-up Encounter Details Date Type Department Care Team (Late st Contact Info) Description 09/15/2020 1:30 PM EST Office Visit Internal Medicine at [facility] [address] [place] [address] Alejandra Corey MD [facility] [place] [address] Acute URI; Acute non-recurrent maxillary sinusitis; Constipation, [...] turn your head so that it is retirement between looking straight ahead and looking to [...] Where can you learn more? Visit our [employer] information library at [email or web address] You can also view health information on IPNetVoice, your personal patient account. Log in or sign uptoday. Enter A855 in the search box to learn more about Jose L Maneuver for Vertigo: Exercises. Current as of: October 23, 2019?Content Version: 12.7 ?? [id number] Healthwise, Inc[employer]. Care instructions adapted under license by [facility]. If you have questions about a medical condition or this instruction, always ask your healthcare professional. [employer] disclaims any warranty or liability for your [...] more? Visit our health information library at [email or web address] You can also view health information on IPNetVoice, your personal patient account. Log in or sign uptoday. Enter P372 in the search box to learn more about Benign Paroxysmal Positional Vertigo (BPPV): CareInstructions. Current as of: October 23, 2019?Content Version: 12.7 ?? [employer]. Care instructions adapted under license by [facility]. If you have questions about a medical condition or this instruction, always ask your healthcare professional. [employer] disclaims any warranty or liability for your [...] with sore throat. This was evaluated at [facility]. She has some associated vertigo [...] 05/01/2024 11:20 AM EDT Appointment Mammography/[place] [address] Rodney Padilla MD [address] [place] [address] 05/01/2024 1:45 PM EDT [place] [address] Juanpablo Hernandez MD [facility] [place] [address] 05/23/2024 2:45 PM EST Clinical Support Family Medicine at [facility] [address] [place] [address] Julia Low, [facility] 01/30/2025 1:30 PM EDT Laboratory Appointment Lab at [facility] Hematology Oncology [address] [place] [address] 01/30/2025 3:[address] [place] [place] [address] Arturo Cordero MD [facility] [place] [address] 01/30/2025 4:15 PM EDT Office Visit [place] [address] Arturo Cordero MD [facility] DR [place] [address] documented as of this encounter Visit Diagnoses Diagnosis Acute URI Acute upper respiratory infections of unspecified site Acute non-recurrent maxillary sinusitis Constipation, unspecified constipation type documented in this encounter Care Teams Knitting Teacher Relationship Specialty Start Date End Date Luis E Narayan MD [facility] [address] [place] [address] PCP - General Family Medicine 03/26/19 01/19/22 documented as of this encounter
--- OUTSIDE RECORDS SUMMARY | 2024-04-13 15:48 | XMS_ITS | Encounter Summary ---
Author Organization [facility] Address [facility] [place] [address] Care Team Providers Care Chief Operator Lock Tender Name Role Phone Luis E Narayan MD Primary Care Provider [phone]- [phone] Reason for Visit * Reason Comments Tearing Encounter Details Date Type Department Care Team (Late st Contact Info) Description 09/15/2020 3:00 PM EST Office [place] [address] Juanpablo Hernandez MD [facility] [place] [address] Malignant melanoma of conjunctiva, left; Keratitis Social [...] 05/01/2024 11:20 AM EDT Appointment Mammography/[place] [address] Rodney Padilla MD [address] [facility] [place] [address] 05/01/2024 1:45 PM EDT Office [place] [address] Juanpablo Hernandez MD [facility] DR OPHTHALMOLOGY [place], [place] [address] 05/23/2024 2:45 PM EST Clinical Support Family Medicine at [facility] [address] [place] [address] Julia Low, [facility] 01/30/2025 1:30 PM EDT Laboratory Appointment Lab at [facility] Hematology Oncology [address] [place] [address] 01/30/2025 3:[address] [place] [address] Arturo Cordero MD [facility] DR HEMATOLOGY AND ONCOLOGY [place], [place] [address] 01/30/2025 4:15 PM EDT Office Visit Hematology [place] [address] Arturo Cordero MD [facility] HEMATOLOGY [place] [address] documented as of this encounter Visit Diagnoses Diagnosis Malignant melanoma of conjunctiva, left Keratitis Unspecified keratitis documented in this encounter Care Teams Chief Operator Lock Tender Relationship Specialty Start Date End Date Luis E Narayan MD [facility] [address] [place] [address] PCP - General Family Medicine 03/26/19 01/19/22 documented as of this encounter
--- OUTSIDE RECORDS SUMMARY | 2024-04-13 15:48 | XMS_ITS | Encounter Summary ---
Author Organization [facility] Address [facility] [place] [address] Care Team Providers Care Lead Recreation Assistant Name Role Phone Luis E Narayan MD Primary Care Provider [phone] Reason for Visit * Reason Comments Cancer Encounter Details Date Type Department Care Team (Late st Contact Info) Description 09/30/2020 12:45 PM EDT Office [place] [address] Juanpablo Hernandez MD [facility] [place] [address] Malignant melanoma of conjunctiva, left Social History [...] 05/01/2024 11:20 AM EDT Appointment Mammography/[place] [address] Rodney Padilla MD [address] [place], [place] [address] 05/01/2024 1:45 PM EDT Office [place] [address] Juanpablo Hernandez MD [facility] [place] [address] 05/23/2024 2:45 PM EST Clinical Support [facility] [address] [place] [address] Julia Low, [facility] 01/30/2025 1:30 PM EDT Laboratory Appointment Lab at [facility] Hematology Oncology [address] [place] [address] 01/30/2025 3:[address] [place] [address] Arturo Cordero MD [facility] DR HEMATOLOGY [place] [address] 01/30/2025 4:15 PM EDT Office Visit Hematology [place] [address] Arturo Cordero MD [facility] DR HEMATOLOGY AND ONCOLOGY [place], [place] [address] documented as of this encounter Visit Diagnoses Diagnosis Malignant melanoma of conjunctiva, left documented in this encounter Care Teams Lead Recreation Assistant Relationship Specialty Start Date End Date Luis E Narayan MD [facility] [address]ALK[address] [address] PCP - General Family Medicine 03/26/19 01/19/22 documented as of this encounter
--- OUTSIDE RECORDS SUMMARY | 2024-04-13 15:48 | XMS_ITS | Encounter Summary ---
Author Organization [facility] Address [facility] [place] [address] Care Team Providers Care Asphalt Tamper Name Role Phone Luis E Narayan MD Primary Care Provider Reason for Visit * Reason Comments Tearing Encounter Details Date Type Department Care Team (Late st Contact Info) Description 09/15/2020 12:15 PM EST Office [place] [address] Marco Antonio Godwin MD [facility] [place] [address] Malignant melanoma of conjunctiva, left Social History [...] to get to her PCP appointment at [facility]. We will arrange for punctal plug placement later this afternoon or tomorrow. OK to skip a dose of the [facility] in anticipation of plug being replaced. Sooner MYRA Maria. MD Tato documented in this encounter Plan of Treatment Upcoming Encounters Date Type Department Care Team (Late st Contact Info) Description 05/01/2024 11:20 AM EDT Appointment Mammography/[place] [address] Rodney Padilla MD [address] [place] [address] 05/01/2024 1:45 PM EDT Office [place] [address] Juanpablo Hernandez MD [facility] [place] [address] 05/23/2024 2:45 PM EST Clinical Support Family Medicine at [facility] [address] [place] [address] Julia Low [facility] 01/30/2025 1:30 PM EDT Laboratory Appointment Lab at [facility] Hematology Oncology [address] [place] [address] 01/30/2025 3:[address] [place] [address] Arturo Cordero MD [facility] [place] [address] 01/30/2025 4:15 PM EDT Office Visit Hematology [place] [address] Arturo Cordero MD [facility] [place] [address] documented as of this encounter Visit Diagnoses Diagnosis Malignant melanoma of conjunctiva, left documented in this encounter Care Teams Asphalt Tamper Relationship Specialty Start Date End Date Luis E Narayan MD [facility] [address] [place] [address] PCP - General Family Medicine 03/26/19 01/19/22 documented as of this encounter
--- OUTSIDE RECORDS SUMMARY | 2024-04-13 15:48 | XMS_ITS | Encounter Summary ---
[place] [address] Care Team Providers Care Press Department Manager Name Role Phone Luis E Narayan MD Primary Care Provider Encounter Details Date Type Department Care Team (Late st Contact Info) Description 10/07/2020 Telephone [place] [address] Malika Ye Social History Tobacco Use Types [...] in a group home (including now)? No 09/15/2020 Sex and [...] 05/01/2024 11:20 AM EDT Appointment Mammography/[place] [address] Rodney Padilla MD [address] [place] [place] [address] 05/01/2024 1:45 PM EDT Office [place] [address] Juanpablo Hernandez MD [facility] [place] [address] 05/23/2024 2:45 PM EST Clinical Support Family Medicine at [facility] [place] [address] [place] [address] Julia Low [facility] 01/30/2025 1:30 PM EDT Laboratory Appointment Lab at [facility] [place]ematology Oncology [address] [place] [address] 01/30/2025 3:[address] [place] [address] Arturo Cordero MD [facility] [place] [address] 01/30/2025 4:15 PM EDT Office Visit Hematology [place] [address] Arturo Cordero MD [facility] [address] [place] [address] documented as of this encounter Visit Diagnoses Not on filedocumented in this encounter Care Teams Press Department Manager Relationship Specialty Start Date End Date Luis E Narayan MD [facility] [address] [place] [address] PCP - General Family Medicine 03/26/19 01/19/22 documented as of this encounter
--- OUTSIDE RECORDS SUMMARY | 2024-04-13 15:48 | XMS_ITS | Encounter Summary ---
Author Organization [facility] [place] [address] Care Team Providers Care Continuous Mining Operator Name Role Phone Luis E Narayan MD Primary Care Provider [phone] Encounter Details Date Type Department Care Team (Latest Contact Info) Description 09/15/2020 9:26 AM EST - 09/15/2020 11:59 PM EST Hospital [place] [address] Shane Cordero MD [facility] DR [place] [address] Malignant melanoma of conjunctiva, left Discharge Disposition: [...] 09/15/2020 10/21/2020 fluticasone propionate (FLONASE) 50 mcg/actuation [place], Suspension 1 spray by Each Nare route [...] 05/01/2024 11:20 AM EDT Appointment Mammography/[place] [address] Rodney Padilla MD [address] [place] [address] 05/01/2024 1:45 PM EDT Office [place] [address] Juanpablo Hernandez MD [facility] OPHTHALMOLOGY [place], [place] [id number] 05/23/2024 2:45 PM EST Clinical Support Family Medicine at [facility] [address] [place] [address] Julia Low, [facility] 01/30/2025 1:30 PM EDT Laboratory Appointment Lab at [facility] Hematology Oncology [address] [place] [address] 01/30/2025 3:[address] [place] [phone] Shane Cordero MD [facility] [address] [place] [address] 01/30/2025 4:15 PM EDT Office Visit [place]ology [place] [address] Shane Cordero MD [facility] [address] [place] [address] documented as of this encounter Procedures Procedure [...] below. Electronically signed by: Nakia Goetz MD, [facility] ([phone]), at 09/15/2020 9:54 AM ? Nakia Goetz, Staff Physician Electronically Signed Final Report ?? 09/15/2020 10:01 am Narrative 09/15/2020 10:01 AM EST Ultrasound Soft Tissue ?(Signed Final 09/15/2020 10:01 am) Neck or Head Report -Left Neck PATIENT INFO: ID #: ? [id number] ?: ??[birth year] (59 yrs)(F) Name: ? ALIZE MANJARREZ ? Visit Date: 09/15/2020 09:42 am PERFORMED BY: Performed By: ? Kaela Bruno RDMS Attending: ?Nakia Goetz MD Referred By: ?SHANE CORDERO Location: ? [place] SERVICE(S) PROVIDED: USTN - Soft Tissue Neck or Head - [id number] ? [id number] INDICATIONS: History of left eye conjunctival melanoma [...] Report -Left Neck PATIENT INFO: ID #: [id number] : 58 (59 yrs)(F) Name: ALIZE MANJARREZ Visit Date: 09/15/2020 09:42 am PERFORMED BY: Performed By: Kaela Bruno RDMS Attending: Nakia Goetz MD Referred By: SHANE CORDERO Location: [place] SERVICE(S) PROVIDED: USTN - Soft Tissue Neck or Head - [id number] INDICATIONS: History of left eye conjunctival melanoma [...] below. Electronically signed by: Nakia Goetz MD, [facility] ([phone]), at 09/15/2020 9:54 AM Nakia Goetz, Staff Physician Electronically Signed Final Report 09/15/2020 10:01 am Shane Cordero MD IMG US GEN ORDERABLE S documented in this encounter Visit Diagnoses Diagnosis Malignant melanoma of conjunctiva, left documented in this encounter Care Teams Continuous Mining Operator Relationship Specialty Start Date End Date Luis E Narayan MD [facility] [address] [place] [address] PCP - General Family Medicine 03/26/19 01/19/22 documented as of this encounter
--- OUTSIDE RECORDS SUMMARY | 2024-04-13 15:48 | XMS_ITS | Encounter Summary ---
[place] [address] Care Team Providers Care Cardiovascular Invasive Specialist Name Role Phone Luis E Narayan MD Primary Care Provider [phone] Encounter Details Date Type Department Care Team (Late st Contact Info) Description 12/10/2020 E-[place] [phone] Julia Low, [facility] Medication management Social History Tobacco Use Types [...] slept in a fdc (including now)? No 09/15/2020 Sex and Gender Information Value Date Recorded Sex Assigned at Not on file Gender Identity Not on file Sexual Orientation Not on file documented as of this encounter Miscellaneous Notes * E-Consult - Julia Faustin [facility] - 12/10/2020 8:16 AM EDT Select F2 [...] your test results may be less accurate. https://www.[facility].org/diseases-conditions/diabetes/expert-answers/blood-glu cose-monitors/faq-63005060 Reviewed test claims: Freestyle Sanjana 2 sensors [...] while using the Sensor. See your health long term acute care registered nurse to understand how long ascorbic acid is active in your body. https://www.[employer]/us-en/safety-information.html This eConsult is focused on the specific [...] 05/01/2024 11:20 AM EDT Appointment Mammography[place] [address] Rodney Padilla MD [address] [place] [address] 05/01/2024 1:45 PM EDT Office [place] [address] Juanpablo Hernandez MD [facility] OPHTHALMOLOGY [place], [place] [phone] 05/23/2024 2:45 PM EST Clinical Support Family Medicine at [facility] [address] [place] [address] Julia Low [facility] 01/30/2025 1:30 PM EDT Laboratory Appointment Lab at [facility] Hematology Oncology [address] [place] [address] 01/30/2025 3:[address] [place] [phone] Arturo Cordero MD [facility] [place] [address] 01/30/2025 4:15 PM EDT Office Visit Hematology [place] [address] Arturo Cordero MD [facility] [address] [place] [address] documented as of this encounter Visit Diagnoses Diagnosis Medication management Encounter for long-term (current) use of other medications documented in this encounter Care Teams Cardiovascular Invasive Specialist Relationship Specialty Start Date End Date Luis E Narayan MD [facility] DR [address] [place] [address] PCP - General Family Medicine 03/26/19 01/19/22 documented as of this encounter
--- OUTSIDE RECORDS SUMMARY | 2024-04-13 15:48 | XMS_ITS | Encounter Summary ---
Author Organization [facility] [place] [address] Care Team Providers Care Food Beverage Manager Name Role Phone Luis E Narayan MD Primary Care Provider [phone] Reason for Referral * Physical Therapy (Routine) - Closed Specialty Diagnoses / Procedures Referred By Gonzalez kumari Referred To Contact Physical Therapy Diagnoses Degenerative disc disease, lumbar Troy Moscoso PA [facility] [address]IL[address] WALKER[place] [address] Physical Therapy, [address] [address] Referral ID Status Reason Start Date Expiration Date V isits Requested Visits Authorized [id number] Closed Evaluate and Treat 10/21/2020 04/19/2021 12 12 Reason for Visit * Reason Comments Low Back Pain With Radicular Pain Encounter Details Date Type Department Care Team (Late st Contact Info) Description 10/21/2020 9:20 AM EDT Office Visit Internal Medicine at [facility] [address] [place] [address] Troy Moscoso PA [facility] DR [address] [place] [address] Type 2 diabetes mellitus without long-term current [...] in a nursing home (including now)? No 09/15/2020 Sex and [...] 10/21/2020 9:20 AM EDT PRIMARY CARE AT [facility] [address] [facility] [address] CHIEF COMPLAINT Alize Gramajo is a 59 [...] 0 ??? fluticasone propionate (FLONASE) 50 mcg/actuation [place], Suspension, 1 spray by Each Nare route2 [...] Disp: 90 tablet, Rfl: 3 ??? lancets [facility], Use for twice daily testing, Disp: 100 each, Rfl: 11 ??? blood sugar diagnostic strips Strip, Use as instructed, Disp: 100 each, Rfl: 12 ??? Blood-Glucose Meter [facility], Use twice daily, Disp: 1 each, Rfl: [...] uses inhalerswith good effect ??? Atherosclerosis of [place] coronary artery of [place] heart with angina pectoris 10/09/2007 History of [...] 3.47) performed by Juanpablo Hernandez MD at [facility] ??? PRO EXCIS CORNEA LESN Left 05/14/2020 EXCISION OF LESION, CORNEA, EXCEPT PTERYGIUM (WRVU 7.5) performed by Juanpablo Hernandez MD at [facility] ??? PRO LAP, PARTIAL NEPHRECTOMY Left 06/28/2019 LAPAROSCOPY, PARTIAL NEPHRECTOMY, ROBOTIC ASSIST (WRVU 27.41) performed by Avila Medina MD at [facility] OR ??? PRO PLACE AMNIOTIC MEMBRANE OCULAR SURFACE;SINGLE LAYER SUTURED Left 05/14/2020 PLACEMENT OF AMNIOTIC MEMBRANE ON THE OCULAR SURFACE,SINGLE LAYER,SUTURED (WRVU 2.5) performed by Jaunpablo Hernandez MD at [facility] FAMILY HISTORY Family History Problem [...] QTC Calculated (Bezet) 435 ms Calculated P Sunset 53 degrees Calculated R Sunset 3 degrees Calculated T Sunset 54 degrees INTERPRETATION Normal sinus rhythm Normal ECG When compared with ECG of 14-FEB-2019 22:28, Aberrant conduction is no longer Present Confirmed by Radha Lawrence ([id number]) on 09/11/2020 7:23:38 PM PHYSICAL EXAM Gen: [...] in these patients send serum separator tube ([facility]) for subsequent determinations. Contact the Clinical Chemistry [...] meets the diagnosis for a myocardial infarction ([place]). Detection of a rise and/or fall of cTnT, with at least one value greater than the 99th percentile (> or = 0.01) and with at least one of the following ?? Symptoms of ischemia ?? New or presumed new significant EC-msefmow-G wave (ST-T) changes or new left bundle [...] additional sample may be indicated. Reference: Third [place] Definition of Myocardial Infarction. Journal of the [place] [employer] 2012;60:1581-98 ??? Ventricular rate 09/11/2020 75 BPM Final ??? Atrial Rate 09/11/2020 75 BPM Final ??? P-R Interval 09/11/2020 170 ms Final ??? QRS Duration 09/11/2020 92 ms Final ??? Q-T Interval 09/11/2020 390 ms Final ??? QTC Calculated (Bezet) 09/11/2020 435 ms Final ??? Calculated P Sunset 09/11/2020 53 degrees Final ??? Calculated R Sunset 09/11/2020 3 degrees Final ??? Calculated T Sunset 09/11/2020 54 degrees Final ??? INTERPRETATION 09/11/2020 Final Value:Normal sinus rhythm Normal ECG When compared with ECG of 14-FEB-2019 22:28, Aberrant conduction is no longer Present Confirmed by Radha Lawrence ([id number]) on 09/11/2020 7:23:38 PM ??? WBC 09/11/2020 [...] Diagnosis Code ??? Coronary artery disease involving [place]-apache coronary artery of [place] heart with angina pectoris I25.119 ??? Altered [...] 05/01/2024 11:20 AM EDT Appointment Mammography/[place] [address] Rodney Padilla MD [address] [place] [address] 05/01/2024 1:45 PM EDT Office [place] [address] Juanpablo Hernandez MD [facility] [place] [address] 05/23/2024 2:45 PM EST Clinical Support Family Medicine at [facility] [address] [place] [address] Julia Low, [facility] 01/30/2025 1:30 PM EDT Laboratory Appointment Lab at [facility] Hematology Oncology [address] [place] [address] 01/30/2025 3:[address] [place] [address] Arturo Cordero MD [facility] DR HEMATOLOGY [place] [address] 01/30/2025 4:15 PM EDT Office Visit Hematology [place] [address] Arturo Cordero MD [facility] DR HEMATOLOGY [place] [address] Scheduled Referrals Name Type Priority Associated Diagnoses [...] Hemoglobin A1c 7.8(H) 4.3 - 5.6 % [facility] [...] Mellitus, Diabetes Care 2013; 36: Suppl. 1, C27-63 Estimated Average Glucose 177 mg/dL [facility] Comment: eAG equivalents for [...] into estimated average glucose values. ??Diabetes Care 2008:31(8):0786-1911. Blood specimen (specimen) 10/21/2020 10:20 AM EDT 10/21/2020 1:48 PM EDT Narrative Resulting Agency Comment Spec In Lab M Noreen Maxwell MD CHEMISTRY ORDERABLES [facility] [place] [address] documented in this encounter Visit Diagnoses Diagnosis Type 2 diabetes mellitus without long-term current use of insulin Degenerative disc disease, lumbar Degeneration of lumbar or lumbosacral intervertebral disc BPPV (benign paroxysmal positional vertigo), right documented in this encounter Care Teams Food Beverage Manager Relationship Specialty Start Date End Date Luis E Narayan MD [facility] [place] [address] PCP - General Family Medicine 03/26/19 01/19/22 documented as of this encounter
--- OUTSIDE RECORDS SUMMARY | 2024-04-13 15:48 | XMS_ITS | Encounter Summary ---
Author Organization [place] [address] Care Team Providers Care Cnc Lathe Machinist Name Role Phone Luis E Narayan MD Primary Care Provider Reason for Referral * Diagnostic Test (Routine) - Closed Specialty Diagnoses / Procedures Referred By Contac t Referred To Contact Radiology Diagnoses Malignant melanoma of conjunctiva, left Procedures CT Neck Soft Tissue w Contrast (Generic) Arturo Cordero MD [facility] [address] [place] [address] [facility] [place] [address] Referral ID Status Reason Start Date Expiration Date V isits Requested Visits Authorized [id number] Closed Specialty Service Requested 09/15/2020 03/18/2022 1 1 * Diagnostic Test (Routine) - Closed Specialty Diagnoses / Procedures Referred By Contac t Referred To Contact Radiology Diagnoses Malignant melanoma of conjunctiva, left Procedures CT Chest Abdomen Pelvis w Contrast (Generic) Arturo Cordero MD [facility] [address] [place] [address] [facility] [place] [address] Referral ID Status Reason Start Date Expiration Date V isits Requested Visits Authorized [id number] Closed Specialty Service Requested 09/15/2020 03/18/2022 1 1 Reason for Visit * Diagnostic Test (Routine) - Closed Specialty Diagnoses / Procedures Referred By Contac t Referred To Contact Radiology Diagnoses Malignant melanoma of conjunctiva, left Procedures CT Chest Abdomen Pelvis w Contrast (Generic) Arturo Cordero MD [facility] [address] [place] [address] [facility] [place] [address] Referral ID Status Reason Start Date Expiration Date V isits Requested Visits Authorized [id number] Closed Specialty Service Requested 09/15/2020 03/18/2022 1 1 Encounter Details Date Type Department Care Team (Latest Contact Info) Description 12/17/2020 12:17 PM EDT - 12/17/2020 12:28 PM EDT Hospital [place] [address] Arturo Cordero MD [facility] [address] [place] [address] Malignant melanoma of conjunctiva, left [...] mg by mouth daily. FreeStyle Sanjana 2 Menard MiscIndications:diabete s mellitus 1 each by Other [...] 09/15/2020 09/19/2023 fluticasone propionate (FLONASE) 50 mcg/actuation [place], Suspension 1 spray by Each Nare route [...] 05/01/2024 11:20 AM EDT Appointment Mammography/[place] [address] Rodney Padilla MD [address] [place] [address] 05/01/2024 1:45 PM EDT Office [place] [address] Juanpablo Hernandez MD [facility] [place] [place] [address] 05/23/2024 2:45 PM EST Clinical Support Family Medicine at [facility] [address] [place] [address] Julia Low, [facility] 01/30/2025 1:30 PM EDT Laboratory Appointment Lab at [facility] Hematology Oncology [address] [place] [address] 01/30/2025 3:[address] [place] [address] Arturo Cordero MD [facility] [address] [place] [address] 01/30/2025 4:15 PM EDT Office Visit Hematology [place] [address] Arturo Cordero MD [facility] [address] [place] [address] documented as of this encounter Procedures Procedure [...] who have questions please contact the health health care administrator that requested your imaging first. ? Electronically signed by: Clarisa Rajput MD, [facility] ([phone]), at 12/18/2020 9:41 AM Narrative 12/18/2020 9:41 AM EDT EXAMINATION: CT [...] patients who have questions please contactthe health health care administrator that requested your imaging first. Electronically signed by: Clarisa Rajput MD, [facility]([phone]), at 12/18/2020 9:41 AM Arturo Cordero MD [...] who have questions please contact the health health care administrator that requested your imaging first. ? Electronically signed by: Juanpablo Chris MD, [facility] ([phone]), at 12/17/2020 4:53 PM Narrative 12/17/2020 4:53 [...] patients who have questions please contactthe health health care administrator that requested your imaging first. Electronically signed by: Juanpablo Chris MD, [facility]([phone]), at 12/17/2020 4:53 PM Arturo Cordero MD IMG CT ORDERABLES [...] mLs documented in this encounter Care Teams Cnc Lathe Machinist Relationship Specialty Start Date End Date Luis E Narayan MD [facility] [address] [place] [address] PCP - General Family Medicine 03/26/19 01/19/22 documented as of this encounter
--- OUTSIDE RECORDS SUMMARY | 2024-04-13 15:48 | XMS_ITS | Encounter Summary ---
[place] [address] Care Team Providers Care Organic Extractions Technician Name Role Phone Luis E Narayan MD Primary Care Provider Reason for Referral * Diagnostic Test (Routine) - Closed Specialty Diagnoses / Procedures Referred By Gonzalez kumari Referred To Contact Radiology Diagnoses Malignant melanoma of conjunctiva, left Procedures CT Chest Abdomen Pelvis w Contrast (Generic) Leandra Black APRN [facility] [address] H[place]AT[place] [address] [facility] [place] [address] Referral ID Status Reason Start Date Expiration Date V isits Requested Visits Authorized [id number] Closed Specialty Service Requested 12/17/2020 06/18/2022 1 1 Reason for Visit * Reason Comments Follow-up Encounter Details Date Type Department Care Team (Late st Contact Info) Description 12/17/2020 3:45 PM EDT Office Visit Hematology [place] [address] Arturo Cordero MD [facility] [address] HEMATOLOG[place] [address] Leandra Black APRN [facility] [place]EMATOLOGY [place] [address] Malignant melanoma of conjunctiva, left; History of [...] from the original note were not included. [facility] FOLLOW UP NOTE REFERING PHYSICIAN: Dr. [...] management - fall 2018: saw a new electrical design technician and was referred to Dr. 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 Medina - 03/31/2020: saw her electrical design technician Dr. Hernandez and was noted to have [...] uses inhalerswith good effect ??? Atherosclerosis [place] coronary artery of [place] heart with angina pectoris 10/09/2007 History of [...] 3.47) performed by Juanpablo Hernandez MD at [facility] ??? PRO EXCIS CORNEA LESN Left 05/14/2020 EXCISION OF LESION, CORNEA, EXCEPT PTERYGIUM (WRVU 7.5) performed by Juanpablo Hernandez MD at [facility] ??? PRO LAP, PARTIAL NEPHRECTOMY Left 06/28/2019 LAPAROSCOPY, PARTIAL NEPHRECTOMY, ROBOTIC ASSIST (WRVU 27.41) performed by Avila Medina MD at [facility] MAIN OR ??? PRO PLACE AMNIOTIC MEMBRANE OCULAR SURFACE;SINGLE LAYER SUTURED Left 05/14/2020 PLACEMENT OF AMNIOTIC MEMBRANE ON THE OCULAR SURFACE,SINGLE LAYER,SUTURED (WRVU 2.5) performed by Juanpablo Hernandez MD at 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 Leandra Black DNP, BUSINESS PROFESSOR Return in 3 mos for stand alone US RTC in 6 mos with labs, clinic appointment and CT scan documented in this encounter Plan of Treatment Upcoming Encounters Date Type Department Care Team (Late st Contact Info) Description 05/01/2024 11:20 AM EDT Appointment Mammography/[place] [address] Rodney Padilla MD [address] [place] [address] 05/01/2024 1:45 PM EDT Office [place] [phone] Juanpablo Hernandez MD [facility] [place] [address] 05/23/2024 2:45 PM EST Clinical Support Family Medicine at [facility] [address] [place] [address] Julia Low RP 01/30/2025 1:30 PM EDT Laboratory Appointment Lab at [facility] Hematology Oncology [address] [place] [address] 01/30/2025 3:[address] [place] [address] Artuor Cordero MD [facility] [address] HEMATOLOGY [place] [address] 01/30/2025 4:15 PM EDT Office Visit Hematology [place] [phone] Arturo Cordero MD [facility] HEMATOLOGY [place] [address] documented as of this encounter Results * [...] questions please contact the health patient care coordinator that requested your imaging first. [...] have questions please contactthe health patient care coordinator that requested your imaging first. Leandra Black BUSINESS PROFESSOR IMG CT ORDERABLES * Lactate Dehydrogenase (06/24/2021 12:52 PM EST) Lactate Dehydrogenase 215 110 - 220 unit/L [facility] Blood 06/24/2021 12:5 2 PM EST 06/24/2021 1:02 PM EST Narrative Resulting Agency Comment Spec In Lab Leandra Black APRN CHEMISTRY ORDERABL ES [facility] [place] [address] * (ABNORMAL) Comprehensive metabolic panel (non-fasting) (06/24/2021 12:52 PM EST) Glucose 185 65 - 199 mg/dL [facility] Comment:Diabetes: >=200 mg/d L plus symptoms Blood Urea Nitrogen 12 8 - 18 mg/dL [facility] Creatinine 0.91 0.70 - 1.20 mg/dL [facility] Sodium 140 135 - 145 mmol/L [facility] [...] 10.5 mg/dL [facility] Protein, Total 6.9 6.1 - 8.0 g/dL [facility] Albumin 4.3 3.2 - 5.2 g/dL [facility] Aspartate Aminotransferase 27 0 - 30 unit/L [facility] Alanine Aminotransferase 34(H) 0 - 30 unit/L [facility] Alkaline Phosphatase 93 35 - 105 unit/L [facility] Bilirubin, Total 0.3 0.2 - 1.3 mg/dL [facility] Est Glomerular Filtration Rate 68 >=60 mL/min/1. 73 m?? [facility] Comment: This patient? s estimated [...] APRN CHEMISTRY ORDERABL ES [facility] [place] [address] * US Soft Tissue Head Or Neck (03/19/2021 11:03 AM EDT) Anatomical Region Laterality Modality Ultrasound 03/19/2021 10:5 4 AM EDT Impressions 03/19/2021 12:13 PM EDT ?? Comparison 09/15/2020 Lymph nodes visualized in the left cervical region demonstrate normal morphology. No suspicious findings. Electronically signed by: Faina Stahl MD, [facility] ([phone]), at 03/19/2021 12:07 PM Thank you for letting us participate in the care of this patient. If you are a health care provider and have any questions regarding this report, please contact the number above. For patients who have questions, please contact the health patient care coordinator that requested your imaging first. ?Faina Hernadez, Staff Physician Electronically Signed Final Report ?? 03/19/2021 12:13 pm Narrative 03/19/2021 12:13 PM EDT Ultrasound Soft Tissue ?(Signed Final 03/19/2021 12:13 pm) Neck or Head Report PATIENT INFO: ID #: ? [id number] ?: ??58 (60 yrs)(F) Name: ? PATIENCE MANJARREZ ? Visit Date: 03/19/2021 10:54 am PERFORMED BY: Performed By: ? Tonia Lopes RDMS Attending: ?Faina Stahl MD Referred By: ?LEANDRA BLACK Location: ? [place] SERVICE(S) PROVIDED: USTN - Soft Tissue Neck or Head - [id number] ? [id number] INDICATIONS: History of left eye conjunctival melanoma [...] or Head Report PATIENT INFO: ID #: [id number] : 58 (60 yrs)(F) Name: PATIENCE MANJARREZ Visit Date: 03/19/2021 10:54 am PERFORMED BY: Performed By: Tonia Lopes RDMS Attending: Faina Stahl MD Referred By: LEANDRA BLACK Location: [place] SERVICE(S) PROVIDED: USTN - Soft Tissue Neck or Head - [id number] INDICATIONS: History of left eye conjunctival melanoma [...] findings. Electronically signed by: Faina Stahl MD, [facility] ([phone]), at 03/19/2021 12:07 PM Thank you for letting us participate in the care of this patient. If you are a health care provider and have any questions regarding this report, please contact the number above. For patients who have questions, please contact the health patient care coordinator that requested your imaging first. Faina Hernadez, Staff Physician Electronically Signed Final Report 03/19/2021 12:13 pm Leandra Black APRN IMG US GEN ORDERAB LES documented in this encounter Visit Diagnoses Diagnosis Malignant melanoma of conjunctiva, left History of renal cell cancer Malignant melanoma of conjunctiva, left Malignant melanoma of conjunctiva, left documented in this encounter Care Teams Organic Extractions Technician Relationship Specialty Start Date End Date Luis E Narayan MD [facility] [address] [address] PCP - General Family Medicine 03/26/19 01/19/22 documented as of this encounter
--- OUTSIDE RECORDS SUMMARY | 2024-04-13 15:48 | XMS_ITS | Encounter Summary ---
Author Organization [facility] [place] [address] Care Team Providers Care Patcher Helper Name Role Phone Luis E Narayan MD Primary Care Provider [phone] Encounter Details Date Type Department Care Team (Latest Contact Info) Description 12/17/2020 12:29 PM EDT - 12/17/2020 11:59 PM EDT Hospital Encounter Hematology [place] [address] Malignant melanoma of conjunctiva, left Discharge Disposition: [...] mg by mouth daily. FreeStyle Sanjana 2 [place] MiscIndications:diabete s mellitus 1 each by Other [...] 09/15/2020 09/19/2023 fluticasone propionate (FLONASE) 50 mcg/actuation [place], Suspension 1 spray by Each Nare route [...] 05/01/2024 11:20 AM EDT Appointment Mammography/[place] [address] Rodney Padilla MD [address] [place] [address] 05/01/2024 1:45 PM EDT Office [place] [address] Juanpablo Hernandez MD [facility] [place] [address] 05/23/2024 2:45 PM EST Clinical Support Family Medicine at [facility] [address] [place] [address] Julia Low, [facility] 01/30/2025 1:30 PM EDT Laboratory Appointment Lab at [facility] Hematology Oncology [address] [place] [address] 01/30/2025 3:[address] [place] [phone] Arturo Cordero MD [facility] [address] [place] [address] 01/30/2025 4:15 PM EDT Office Visit Hematology [place] [address] Arturo Cordero MD [facility] [address] [place] [address] Scheduled Orders Name Type Priority Associated Diagnoses [...] Scan, Peripheral Blood (12/17/2020 12:45 PM EDT) Pathologist [facility] Plat estimate Normal [facility] RBC Morphology Normal [facility] Blood 12/17/2020 12:4 5 PM EDT 12/17/2020 12:51 PM EDT Narrative Resulting Agency Comment Spec In Lab Arturo Cordero MD HEMATOLOGY ORDERABLE S [facility] [place] [address] * Differential, Automated (12/17/2020 12:45 PM EDT) [facility] Neutrophil % 58.0 % [facility] Neutrophil Absolute 3.91 1.70 - 6.10 x10(3)/[facility] Lymph % 29.9 % [facility] Lymphocytes Abs 2.0 0.9 - 3.2 x10(3)/[facility] Monocyte % 9.2 % [facility] Monocyte Abs 0.6 0.3 - 0.9 x10(3)/[facility] Eos % 1.9 % [facility] Eosinophils Abs 0.1 0.0 - 0.4 x10(3)/[facility] Basophil % 0.9 % [facility] Baso Absolute 0.1 0.0 - 0.1 x10(3)/[facility] Immature Gran % 0.10 % [facility] Comment: Immature granulocytes(IG's)percentage and absolute count will include metamyelocytes, myelocytes, and promyelocytes. Blood smears from CBCs yielding IG's will be scanned manually for concordance. If this scan disagrees with the automated IG or if promyelocytes are noted, a manual differential will be performed. Immature Gran Absolute 0.01 0.00 - 0.04 x10(3)/[facility] Blood 12/17/2020 12:4 5 PM EDT 12/17/2020 12:51 PM EDT Narrative Resulting Agency Comment Spec In Lab Arturo Cordero MD HEMATOLOGY ORDERABLE S [facility] [place] [address] * (ABNORMAL) Hemogram (12/17/2020 12:45 PM EDT) White Blood Cell 6.8 4.0 - 9.5 x10(3)/[facility] Red Blood Cell 4.44 4.00 - 5.21 x10(6)/[facility] Hemoglobin 12.8 11.7 - 15.5 gm/dL [facility] Hematocrit 38.3 35.7 - 45.8 % [facility] Mean Cell Volume 86.3 82.6 - 94.4 fL [facility] Mean Cell Hemoglobin 28.8 27.1 - 32.0 pg [facility] Mean Cell Hemoglobin Concentration 33.4 31.7 - 35.0 gm/dL [facility] Platelet 351 145 - 357 x10(3)/ L [facility] RDW Standard Deviation 45.1 37.0 - 46.0 fL [facility] RDW coefficient of variation 14.2(H) 11.5 - 14.1 % [facility] Mean Platelet Volume 9.6 7.6 - 12.9 fL [facility] NRBC% auto 0.0 % [facility] NRBC Absolute 0.000 0.000 - 0.000 x10(3)/mc L [facility] Blood 12/17/2020 12:4 5 PM EDT 12/17/2020 12:51 PM EDT Narrative Resulting Agency Comment Spec In Lab Arturo Cordero MD HEMATOLOGY ORDERABLE S [facility] [place] [address] * (ABNORMAL) Comprehensive metabolic panel (non-fasting) (12/17/2020 12:45 PM EDT) Glucose 220(H) 65 - 199 mg/dL [facility] Comment:Diabetes: >=200 mg/d L plus symptoms Blood Urea Nitrogen 15 8 - 18 mg/dL [facility] Creatinine 0.94 0.70 - 1.20 mg/dL [facility] Sodium 139 135 - 145 mmol/L [facility] Potassium 4.2 3.5 - 5.0 mmol/L [facility] Comment: Please note: ??Patients with WBC >100,000 may have falsely elevated Potassium levels. ??For accurate Potassium quantification in these patients send serum separator tube (gold top) for subsequent determinations. ??Contact the Clinical Chemistry Laboratory if there are any questions. Chloride 104 98 - 107 mmol/L [facility] Carbon Dioxide 26 22 - 31 mmol/L [facility] Anion Gap 9 5 - 15 mmol/L [facility] Calcium 9.5 8.5 - 10.5 mg/dL [facility] Protein, Total 6.7 6.1 - 8.0 gm/dL [facility] Albumin 4.2 3.2 - 5.2 gm/dL [facility] Aspartate Aminotransferase 21 0 - 30 unit/L [facility] Alanine Aminotransferase 24 0 - 30 unit/L [facility] Alkaline Phosphatase 97 35 - 105 unit/L [facility] Bilirubin, Total 0.5 0.2 - 1.3 mg/dL [facility] Est Glomerular Filtration Rate 65 >=60 mL/min/1. 73 m?? [facility] Comment: This patient? [...] In Lab Arturo Cordero MD CHEMISTRY ORDERABLES [facility] [place] [address] * Lactate Dehydrogenase (12/17/2020 12:45 PM EDT) Lactate Dehydrogenase 205 110 - 220 unit/L [facility] Blood 12/17/2020 12:4 5 PM EDT 12/17/2020 12:51 PM EDT Narrative Resulting Agency Comment Spec In Lab Arturo Cordero MD CHEMISTRY ORDERABLES [facility] [place] [address] documented in this encounter Visit Diagnoses Diagnosis Malignant melanoma of conjunctiva, left documented in this encounter Care Teams Patcher Helper Relationship Specialty Start Date End Date Luis E Narayan MD [facility] [address] [address] PCP - General Family Medicine 03/26/19 01/19/22 documented as of this encounter
--- OUTSIDE RECORDS SUMMARY | 2024-04-13 15:48 | XMS_ITS | Encounter Summary ---
Author Organization [place] [address] Care Team Providers Care Partner Management Consultant Name Role Phone Luis E Narayan MD Primary Care Provider [phone]- [phone] Reason for Referral * Consultation (Routine) - Closed Specialty Diagnoses / Procedures Referred By Gonzalez kumari Referred To Contact General Surgery Diagnoses Bloating Alternating constipation and diarrhea [place] [address] Torito Coon MD [address] [place] [address] Referral ID Status Reason Start Date Expiration Date V isits Requested Visits Authorized [id number] Closed Test Only 02/03/2021 08/02/2021 1 1 Reason for Visit * Reason Comments Follow-up Been significantly w orse for past 3 days. Other Wants to ask liliana canales about small hernia on CT scan in December and discuss possible IBS Encounter Details Date Type Department Care Team (Late st Contact Info) Description 02/03/2021 4:00 PM EDT Office Visit Internal Medicine at [facility] [address] [place] [address] [place] [address] Bloating; Alternating constipation and diarrhea Social History [...] Diagnosis Code ??? 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 Altered [...] 05/01/2024 11:20 AM EDT Appointment Mammography/[place] [address] Rodney Padilla MD [address] [facility] [place] [address] 05/01/2024 1:45 PM EDT Office [place] [address] Juanpablo Hernandez MD [facility] OPHTHALMOLOGY [place], [place] [phone] 05/23/2024 2:45 PM EST Clinical Support Family Medicine at [facility] [address] [place] [address] Julia Low [facility] 01/30/2025 1:30 PM EDT Laboratory Appointment Lab at [facility] Hematology Oncology [address] [place] [id number] 01/30/2025 3:[address] [place] [address] Arturo Cordero MD [facility] HEMATOLOGY AND ONCOLOGY [place], [place] [phone] 01/30/2025 4:15 PM EDT Office Visit Hematology [place] [phone] Arturo Cordero MD [facility] [place] [address] Scheduled Referrals Name Type Priority Associated Diagnoses Orde r Schedule REFERRAL TO COLONOSCOPY PROCEDURE Outpatient Referral Routine Bloating Alternating constipation and diarrhea Ordered: 02/03/2021 documented as of this encounter Visit Diagnoses Diagnosis Bloating Flatulence, eructation, and gas pain Alternating constipation and diarrhea Other symptoms involving digestive system documented in this encounter Care Teams Partner Management Consultant Relationship Specialty Start Date End Date Luis E Narayan MD [facility] [address] [place] [address] PCP - General Family Medicine 03/26/19 01/19/22 documented as of this encounter
--- OUTSIDE RECORDS SUMMARY | 2024-04-13 15:48 | XMS_ITS | Encounter Summary ---
Author Organization [facility] Address [facility] [place] [address] Care Team Providers Care Assembly Hand Name Role Phone Luis E Narayan MD Primary Care Provider Encounter Details Date Type Department Care Team (Late st Contact Info) Description 02/11/2021 Ancillary Procedure Radiology Library at [facility] [address] Luis E Narayan MD [facility] [address] [place] [address] Social History Tobacco Use Types Packs/Day Years [...] AM EDT Appointment Mammography/[place] [address] Rodney Padilla MD [address] [place] [address] 05/01/2024 1:45 PM EDT Office [place] [address] Juanpablo Hernandez MD [facility] [place] [address] 05/23/2024 2:45 PM EST Clinical Support Family Medicine at [facility] [address] [place] [address] Julia Low RPH 01/30/2025 1:30 PM EDT Laboratory Appointment Lab at [facility] Hematology Oncology [address] [place] [address] 01/30/2025 3:[address] [place] [phone] Arturo Cordero MD [facility] [place] [address] 01/30/2025 4:15 PM EDT Office Visit Hematology [place] [address] Arturo Cordero MD [facility] [place] [address] documented as of this encounter Procedures Procedure Name Priority Date/Time Associated Diagnosis Comments FILM LIBRARY STORAGE ONLY CT ABDOMEN AND PELVIS Routine 02/11/2021 12:00 AM EDT documented in this encounter Results * Film Library- Storage Only CT Abdomen & Pelvis (02/11/2021 12:00 AM EDT) Narrative [facility] - 02/15/2021 11:35 AM EDT This exam is auto-finalizing. It's purpose is for storage only. Luis E Narayan MD IMG FILM LIBRARY OR DERABLES Performing Organization Address City/State/[facility] Co de Phone Number [place], [place] documented in this encounter Visit Diagnoses Not on filedocumented in this encounter Care Teams Assembly Hand Relationship Specialty Start Date End Date Luis E Narayan MD [facility] [address] [place] [address] PCP - General Family Medicine 03/26/19 01/19/22 documented as of this encounter
--- OUTSIDE RECORDS SUMMARY | 2024-04-13 15:48 | XMS_ITS | Encounter Summary ---
Author Organization [facility] [address] Care Team Providers Care Chief Business Development Officer Name Role Phone Luis E Narayan MD Primary Care Provider Reason for Visit * Reason Onset Date Comments Back Pain 10/20/2020 Encounter Details Date Type Department Care Team (Late st Contact Info) Description 10/20/2020 Refill Internal Medicine at [facility] [address] [place] [address] Cara Thomas, medical sales representative bilateral low back pain without sciatica Social [...] slept in a intermediate (including now)? No 09/15/2020 Sex and Gender Information Value Date Recorded Sex Assigned at Not on file Gender Identity Not on file Sexual Orientation Not on file documented as of this encounter Miscellaneous Notes * Telephone Encounter - Cara Thomas RN - 10/20/2020 2:59 PM EDT Spoke to patient, verified full name and . Advised patient of COS's message. Advised her the flexeril is called in, she should grape picker albert. Advised that before a steroid is prescribed, she will need to be evaluate in clinic. Patient scheduled for in clinic appointment with Eduardo Moscoso on 10/21/20at 09:20 to discuss short [...] with her pcp to discuss chronic management eduardo clark * Telephone Encounter - Cara Thomas [...] AM EDT Appointment Mammography/[place] [address] Rodney Padilla MD [address] [facility] [place] [address] 05/01/2024 1:45 PM EDT Office [place] [address] Juanpablo Hernandez MD [facility] [place] [address] 05/23/2024 2:45 PM EST Clinical Support Family Medicine at [facility] [address] [place] [address] Julia Low [facility] 01/30/2025 1:30 PM EDT Laboratory Appointment Lab at [facility] Hematology Oncology [address] [place] [address] 01/30/2025 3:[address] [place] [address] Arturo Cordero MD [facility] DR HEMATOLOGY AND ONCOLOGY [place], [place] [address] 01/30/2025 4:15 PM EDT Office Visit [place] [address] Arturo Cordero MD [facility] [place] [address] documented as of this encounter Visit Diagnoses Diagnosis Chronic bilateral low back pain without sciatica documented in this encounter Care Teams Chief Business Development Officer Relationship Specialty Start Date End Date Luis E Narayan MD [facility] [address] [place] [address] PCP - General Family Medicine 03/26/19 01/19/22 documented as of this encounter
--- OUTSIDE RECORDS SUMMARY | 2024-04-13 15:48 | XMS_ITS | Encounter Summary ---
Author Organization [facility] Address [facility] [place] [address] Care Team Providers Care Wood Pile Driver Operator Name Role Phone Luis E Narayan MD Primary Care Provider +1- [phone] Reason for Visit * Reason Onset Date Comments Medication Refill 10/30/2020 Encounter Details Date Type Department Care Team (Late st Contact Info) Description 10/30/2020 Refill [facility] [address] [place] [address] Troy Moscoso PA [facility] [address] [place] [address] Chronic bilateral low back pain without sciatica [...] 05/01/2024 11:20 AM EDT Appointment Mammography/[place] [address] Rodney Padilla MD [address] [place] [place] [address] 05/01/2024 1:45 PM EDT Office [place] [address] Juanpablo Hernandez MD [facility] [place] [address] 05/23/2024 2:45 PM EST Clinical Support Family Medicine at [facility] [address] [place] [address] Julia Low [facility] 01/30/2025 1:30 PM EDT Laboratory Appointment Lab at [facility] Hematology Oncology [address] [place] [address] 01/30/2025 3:[address] [place] [address] Arturo Cordero MD [facility] [place] [address] 01/30/2025 4:15 PM EDT Office Visit Hematology [place] [address] Arturo Cordero MD [facility] [place] [address] documented as of this encounter Visit Diagnoses Diagnosis Chronic bilateral low back pain without sciatica documented in this encounter Care Teams Wood Pile Driver Operator Relationship Specialty Start Date End Date Luis E Narayan MD [facility] [address] [place] [address] PCP - General Family Medicine 03/26/19 01/19/22 documented as of this encounter
--- OUTSIDE RECORDS SUMMARY | 2024-04-13 15:49 | XMS_ITS | Encounter Summary ---
Author Organization [facility] [place] [address] Care Team Providers Care Ems Manager Name Role Phone Luis E Narayan MD Primary Care Provider +1- [phone] Reason for Visit * Reason Comments Post Op Encounter Details Date Type Department Care Team (Late st Contact Info) Description 07/02/2020 1:45 PM EST Office [place] [address] Juanpablo Hernandez MD [facility] [place] [address] Malignant melanoma of conjunctiva, left Social History [...] 05/01/2024 11:20 AM EDT Appointment Mammography/[place] [address] Rodney Padilla MD [address] [place] [address] 05/01/2024 1:45 PM EDT Office [place] [address] Juanpablo Hernandez MD [facility] [place] [address] 05/23/2024 2:45 PM EST Clinical Support [facility] [address] [place] [phone] [facility] 01/30/2025 1:30 PM EDT Laboratory Appointment Lab at [facility] Hematology Oncology [address] [place] [address] 01/30/2025 3:[address] [place] [address] Arturo Cordero MD [facility] [address] [place] [address] 01/30/2025 4:15 PM EDT Office Visit [place]ematology [place] [address] Arturo Cordero MD [facility] DR [place] [address] documented as of this encounter Visit Diagnoses Diagnosis Malignant melanoma of conjunctiva, left documented in this encounter Care Teams Ems Manager Relationship Specialty Start Date End Date Luis E Narayan MD [facility] DR [address] [place] [address] PCP - General Family Medicine 03/26/19 01/19/22 documented as of this encounter
--- OUTSIDE RECORDS SUMMARY | 2024-04-13 15:49 | XMS_ITS | Encounter Summary ---
[place] [address] Care Team Providers Care Peanut Grader Name Role Phone Luis E Narayan MD Primary Care Provider +1- [phone] Encounter Details Date Type Department Care Team (Late st Contact Info) Description 08/17/2020 External [place] [phone] Social History Tobacco Use Types Packs/Day Years [...] 11:20 AM EDT Appointment Mammography/[place] [address] Rodney Padilla MD [address] [place] [address] 05/01/2024 1:45 PM EDT Office [place] [address] Juanpablo Hernandez MD [facility] [place] [address] 05/23/2024 2:45 PM EST Clinical Support Family Medicine at [facility] [address] [place] [address] Julia Low [facility] 01/30/2025 1:30 PM EDT Laboratory Appointment Lab at [facility] Hematology Oncology [address] [place] [address] 01/30/2025 3:[address] [place] [address] Arturo Cordero MD [facility] [address] [place] [address] 01/30/2025 4:15 PM EDT Office Visit Hematology [place] [address] Arturo Cordero MD [facility] [address] [place] [address] documented as of this encounter Procedures Procedure Name Priority Date/Time Associated Diagnosis Comments ECG SCAN Routine 08/17/2020 documented in this encounter Results * Scan Doc: ECG (08/17/2020) Historical Provider MD [facility] MGR SCAN EX T ORDR/RSLT documented in this encounter Visit Diagnoses Not on filedocumented in this encounter Care Teams Peanut Grader Relationship Specialty Start Date End Date Luis E Narayan MD [facility] DR [address] [place] [address] PCP - General Family Medicine 03/26/19 01/19/22 documented as of this encounter
--- OUTSIDE RECORDS SUMMARY | 2024-04-13 15:49 | XMS_ITS | Encounter Summary ---
[place] [address] Care Team Providers Care Field Organizer Name Role Phone Luis E Narayan MD Primary Care Provider Reason for Visit * Reason Onset Date Comments Prior Authorization 06/29/2020 nicotine (NI COTROL) 10 mg Cartridge Encounter Details Date Type Department Care Team (Late st Contact Info) Description 06/29/2020 Telephone Family Medicine at [facility] [address] [place] [phone] Aida Aguayo CMA Prior Authorization (nicotine (NICOTROL) [...] Authorization for Primary [place] [address] DENIED: Nicotrol Case/Reference #: [id number] Additional Information from Insurance: The patient has [...] Authorization for [place] [address] Request received via: [facility] Patient: Alize Gramajo Patient : 1960 Insurance Company[place] Sent via: Beisen Anderson: [id number] Physician: Luis E Narayan MD Medication Requested: [...] EDT Appointment Mammography/[place] [address] Rodney Padilla MD [address] [address] 05/01/2024 1:45 PM EDT Office [place] [address] Juanpablo Hernandez MD [facility] [place] [address] 05/23/2024 2:45 PM EST Clinical Support Family Medicine at [facility] [address] [place] [phone] Julia Low [facility] 01/30/2025 1:30 PM EDT Laboratory Appointment Lab at [facility] Hematology Oncology [address] [place] [address] 01/30/2025 3:[address] [place] [address] Arturo Cordero MD [facility] [place] [address] 01/30/2025 4:15 PM EDT Office Visit Hematology [place] [address] Arturo Cordero MD [facility] [place] [address] documented as of this encounter Visit Diagnoses Not on filedocumented in this encounter Care Teams Field Organizer Relationship Specialty Start Date End Date Luis E Narayan MD [facility] DR [address] [place] [address] PCP - General Family Medicine 03/26/19 01/19/22 documented as of this encounter
--- OUTSIDE RECORDS SUMMARY | 2024-04-13 15:49 | XMS_ITS | Encounter Summary ---
Author Organization [facility] [place] [address] Care Team Providers Care Instructor Military Science Name Role Phone Luis E Narayan MD Primary Care Provider +1- [phone] Encounter Details Date Type Department Care Team (Late st Contact Info) Description 07/14/2020 Telephone Family Medicine at [facility] [address] [place] [address] Toyin Rodriguez Social History Tobacco Use Types [...] EST Law [place] form(s) received from cold mill inspector bin and placed in provider folder. * Telephone Encounter - Toyin Arboleda LNA - 07/14/2020 4:22 PM EST Law office [place] John form(s) received via [employer] fax server systems administrator. Two patient identifiers confirmed on form(s) Form(s) printed and placed in team cold mill inspector mail bin. documented in this encounter Plan of Treatment Upcoming Encounters Date Type Department Care Team (Late st Contact Info) Description 05/01/2024 11:20 AM EDT Appointment Mammography/[place] [address] Rodney Padilla MD [address] [place] [address] 05/01/2024 1:45 PM EDT Office [place] [address] Juanpablo Hernandez MD [facility] [place] [place] [address] 05/23/2024 2:45 PM EST Clinical Support Family Medicine at [facility] [address] [place] [address] Julia Low, [facility] 01/30/2025 1:30 PM EDT Laboratory Appointment Lab at [facility] Hematology Oncology [address] [place] [address] 01/30/2025 3:[address] [place] [address] Arturo Cordero MD [facility] [address] [place] [address] 01/30/2025 4:15 PM EDT Office Visit Hematology [place] [address] Arturo Cordero MD [facility] [place] [address] documented as of this encounter Visit Diagnoses Not on filedocumented in this encounter Care Teams Instructor Military Science Relationship Specialty Start Date End Date Luis E Naaryan MD [facility] [address] [place] [address] PCP - General Family Medicine 03/26/19 01/19/22 documented as of this encounter
--- OUTSIDE RECORDS SUMMARY | 2024-04-13 15:49 | XMS_ITS | Encounter Summary ---
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 Social [...] 08/05/2019 06/14/2021 fluticasone propionate (FLONASE) 50 mcg/actuation [place], Suspension 1 spray by Each Nare route [...] 05/01/2024 11:20 AM EDT Appointment Mammography/[place] [address] Rodney Padilla MD [address] [place] [address] 05/01/2024 1:45 PM EDT Office [place] [address] Juanpablo Hernandez MD [facility] [place] [address] 05/23/2024 2:45 PM EST Clinical Support Family Medicine at [facility] [address] [place] [address] Julia Low [facility] 01/30/2025 1:30 PM EDT Laboratory Appointment Lab at [facility] Hematology Oncology [address] [place] [id number] 01/30/2025 3:[address] [place] [address] Arturo Cordero MD [facility] DR HEMATOLOGY AND ONCOLOGY [place], [place] [address] 01/30/2025 4:15 PM EDT Office Visit Hematology and Oncology at [facility] [place] [address] Arturo Cordero MD [facility] [place] [address] documented as of this encounter Procedures Procedure [...] 2:00 PM EST) Neutrophil % 57.4 % [facility] Neutrophil Absolute 4.65 1.70 - 6.10 x10(3)/[facility] Lymph % 32.2 % [facility] Lymphocytes Abs 2.6 0.9 - 3.2 x10(3)/[facility] Monocyte % 7.6 % [facility] Monocyte Abs 0.6 0.3 - 0.9 x10(3)/[facility] Eos % 1.6 % [facility] Eosinophils Abs 0.1 0.0 - 0.4 x10(3)/[facility] Basophil % 0.7 % [facility] Baso Absolute 0.1 0.0 - 0.1 x10(3)/[facility] Immature Gran % 0.50 % [facility] Comment: Immature granulocytes(IG's)percentage and absolute count will include metamyelocytes, myelocytes, and promyelocytes. Blood smears from CBCs yielding IG's will be scanned manually for concordance. If this scan disagrees with the automated IG or if promyelocytes are noted, a manual differential will be performed. Immature Gran Absolute 0.04 0.00 - 0.04 x10(3)/[facility] Blood specimen (specimen) 06/12/2020 2:00 PM EST 06/12/2020 2:04 PM EST Narrative Resulting Agency Comment Spec In Lab Sri Frederick MD HEMATOLOGY ORDERABLE S Performing Organization Address City/State/[facility] Co de Phone Number [facility] [place] [address] * Hemogram (06/12/2020 2:00 PM EST) White Blood Cell 8.1 4.0 - 9.5 x10(3)/[facility] Red Blood Cell 4.67 4.00 - 5.21 x10(6)/[facility] Hemoglobin 13.4 11.7 - 15.5 gm/dL [facility] Hematocrit 40.7 35.7 - 45.8 % [facility] Mean Cell Volume 87.2 82.6 - 94.4 fL [facility] Mean Cell Hemoglobin 28.7 27.1 - 32.0 pg [facility] Mean Cell Hemoglobin Concentration 32.9 31.7 - 35.0 gm/dL [facility] Platelet 350 145 - 357 x10(3)/[facility] RDW Standard Deviation 42.6 37.0 - 46.0 fL [facility] RDW coefficient of variation 13.4 11.5 - 14.1 % [facility] Mean Platelet Volume 9.2 7.6 - 12.9 [facility] NRBC% auto 0.0 % [facility] NRBC Absolute 0.000 0.000 - 0.000 x10(3)/mcL [facility] Blood specimen (specimen) 06/12/2020 2:00 PM EST 06/12/2020 2:04 PM EST Narrative Resulting Agency Comment Spec In Lab Sri Frederick MD HEMATOLOGY ORDERABLE S [facility] [place] [address] * Comprehensive metabolic panel (non-fasting) (06/12/2020 2:00 PM EST) Glucose 166 65 - 199 mg/dL [facility] Comment:Diabetes: >=200 mg/d L plus symptoms Blood Urea Nitrogen 17 8 - 18 mg/dL [facility] Creatinine 0.92 0.70 - 1.20 mg/dL [facility] Sodium 140 135 - 145 mmol/L [facility] Potassium 4.3 3.5 - 5.0 mmol/L [facility] Comment: Please note: ??Patients with WBC >100,000 may have falsely elevated Potassium levels. ??For accurate Potassium quantification in these patients send serum separator tube (gold top) for subsequent determinations. ??Contact the Clinical Chemistry Laboratory if there are any questions. Chloride 104 98 - 107 mmol/L [facility] Carbon Dioxide 28 22 - 31 mmol/L [facility] Anion Gap 8 5 - 15 mmol/L [facility] Calcium 9.4 8.5 - 10.5 mg/dL [facility] Protein, Total 6.8 6.1 - 8.0 gm/dL [facility] Albumin 4.4 3.2 - 5.2 gm/dL [facility] Aspartate Aminotransferase 17 0 - 30 unit/L [facility] Alanine Aminotransferase 22 0 - 30 unit/L [facility] Alkaline Phosphatase 102 35 - 105 unit/L [facility] Bilirubin, Total 0.4 0.2 - 1.3 mg/dL [facility] Est Glomerular Filtration Rate 68 >=60 mL/min/1. 73 m?? [facility] Comment: This patient? s estimated [...] MD CHEMISTRY ORDERABLES Performing Organization Address [facility] Co de Phone Number [facility] [place] [address] * Lactate Dehydrogenase (06/12/2020 2:00 PM EST) Lactate Dehydrogenase 198 110 - 220 unit/L [facility] Blood specimen (specimen) 06/12/2020 2:00 PM EST 06/12/2020 2:04 PM EST Narrative Resulting Agency Comment Spec In Lab Arturo Cordero MD CHEMISTRY ORDERABLES Performing Organization Address [facility] Co de Phone Number [facility] [place] [address] * TSH (06/12/2020 2:00 PM EST) Thyroid Stimulating Hormone 2.53 0.27 - 4.20 mcIU/mL [facility] Blood specimen (specimen) 06/12/2020 2:00 PM EST 06/12/2020 2:04 PM EST Narrative Resulting Agency Comment Spec In Lab Arturo Cordero MD CHEMISTRY ORDERABLES Performing Organization Address City/[facility]/ZIP Co de Phone Number [facility] [place] [address] * T4, free (06/12/2020 2:00 PM EST) Free T4 1.01 0.93 - 1.70 ng/dL [facility] Blood specimen (specimen) 06/12/2020 2:00 PM EST 06/12/2020 2:04 PM EST Narrative Resulting Agency Comment Spec In Lab Arturo Cordero MD CHEMISTRY ORDERABLES Performing Organization Address [facility] Co de Phone Number [facility] [place] [address] documented in this encounter Visit Diagnoses Diagnosis Ocular melanoma, left documented in this encounter Care Teams Feather Duster Winder Relationship Specialty Start Date End Date Luis E Narayan MD [facility] DR [address] [place] [address] PCP - General Family Medicine 03/26/19 01/19/22 documented as of this encounter
--- OUTSIDE RECORDS SUMMARY | 2024-04-13 15:49 | XMS_ITS | Encounter Summary ---
Author Organization [facility] [place] [address] Care Team Providers Care Patient Care Associate Name Role Phone Luis E Narayan MD Primary Care Provider +1- [phone] Encounter Details Date Type Department Care Team (Late st Contact Info) Description 08/17/2020 Telephone Cardiology at [address] [address] Anthony Barbosa MD [facility] [place] [address] Social History Tobacco Use Types Packs/Day Years [...] PM Referring Provider: Cindy CARLIN Patient [facility]: [facility] Presenting Symptoms per OSH: 59F with [...] Lower concern for an active plaque rupture MA. - Recommended to trend trops and assess [...] 05/01/2024 11:20 AM EDT Appointment Mammography/[place] [address] Rodney Padilla MD [address] [place] [address] 05/01/2024 1:45 PM EDT Office [place] [address] Juanpablo Hernandez MD [facility] [place] [address] 05/23/2024 2:45 PM EST Clinical Support Family Medicine at [facility] [address] [place] [address] Julia Low [facility] 01/30/2025 1:30 PM EDT Laboratory Appointment Lab at [facility] Hematology Oncology [address] [place] [address] 01/30/2025 3:[address] [place] [address] Arturo Cordero MD [facility] DR HEMATOLOGY [place] [address] 01/30/2025 4:15 PM EDT Office Visit [place]ematology [place] [address] Arturo Cordero MD [facility] HEMATOLOGY [place] [address] documented as of this encounter Visit Diagnoses Not on filedocumented in this encounter Care Teams Patient Care Associate Relationship Specialty Start Date End Date Luis E Narayan MD [facility] [place] [address] PCP - General Family Medicine 03/26/19 01/19/22 documented as of this encounter
--- OUTSIDE RECORDS SUMMARY | 2024-04-13 15:49 | XMS_ITS | Encounter Summary ---
Author Organization [facility] [place] [address] Care Team Providers Care Supervisor Plate Pasting Name Role Phone Luis E Narayan MD Primary Care Provider Reason for Visit * Reason Comments Follow-up Encounter Details Date Type Department Care Team (Late st Contact Info) Description 07/31/2020 3:15 PM EST Office [place] [address] Juanpablo Hernandez MD [facility] [place] [address] Malignant melanoma of conjunctiva, left Social History [...] 05/01/2024 11:20 AM EDT Appointment Mammography/[place] [address] Rodney Padilla MD [address] [place] [address] 05/01/2024 1:45 PM EDT Office [place] [address] Juanpablo Hernandez MD [facility] [place] [place] [address] 05/23/2024 2:45 PM EST Clinical Support [facility] [address] [place] [address] Julia Low, [facility] 01/30/2025 1:30 PM EDT Laboratory Appointment Lab at [facility] Hematology Oncology [address] [place] [address] 01/30/2025 3:[address] [place] [address] Arturo Cordero MD [facility] [place] [address] 01/30/2025 4:15 PM EDT Office Visit Hematology [place] [address] Arturo Cordero MD [facility] [place] [address] documented as of this encounter Visit Diagnoses Diagnosis Malignant melanoma of conjunctiva, left documented in this encounter Care Teams Supervisor Plate Pasting Relationship Specialty Start Date End Date Luis E Narayan MD NPI: [id number] [place] [address] [address] [place] [address] PCP - General Family Medicine 03/26/19 01/19/22 documented as of this encounter
--- OUTSIDE RECORDS SUMMARY | 2024-04-13 15:49 | XMS_ITS | Encounter Summary ---
Author Organization [facility] Address [address] [facility] [place] [address] Care Team Providers Care Lieutenant/Deputy Name Role Phone Luis E Narayan MD Primary Care Provider [phone] Reason for Visit * Reason Onset Date Comments Triage 09/14/2020 Encounter Details Date Type Department Care Team (Late st Contact Info) Description 09/14/2020 Telephone Family Medicine at [facility] [address] [place] [address] Wendy Washington Triage Social History Tobacco Use [...] month, got a negative COVID Test at [facility] when the symptoms when started. Patient denies all urgent signs and symptoms at this time. Patient requested appointment on 09/15/20 to coordinate with other appointments. Appointment scheduled with Leora COLVIN on 09/15/20 @ 0914. Patient reported understanding and agrees to plan [...] up for Chest Pain. Left message on [employer] voicemail to call back. * Telephone Encounter - Wendy Washington - 09/14/2020 8:16 AM EST Please call patient to discuss Emergency Room Follow Up Reason for the Emergency Room visit: Chest Pain Name of the facility where patient was seen: [facility] Symptomatic now: y Other information:Pt states [...] 05/01/2024 11:20 AM EDT Appointment Mammography/[place] [address] Rodney Padilla MD [address] [place] [address] 05/01/2024 1:45 PM EDT Office [place] [address] Juanpablo Hernandez MD [facility] [place] [address] 05/23/2024 2:45 PM EST Clinical Support Family Medicine at [facility] [address] [place] [address] Julia Low RPH 01/30/2025 1:30 PM EDT Laboratory Appointment Lab at [facility] Hematology Oncology [address] [place] [address] 01/30/2025 3:[address] [place] [address] Arturo Cordero MD [facility] [place] [address] 01/30/2025 4:15 PM EDT Office Visit [place]ematology [place] [address] Arturo Cordero MD [facility] [place] [address] documented as of this encounter Visit Diagnoses Not on filedocumented in this encounter Care Teams Lieutenant/Deputy Relationship Specialty Start Date End Date Luis E Narayan MD [facility] [address] [place] [address] PCP - General Family Medicine 03/26/19 01/19/22 documented as of this encounter
--- OUTSIDE RECORDS SUMMARY | 2024-04-13 15:49 | XMS_ITS | Encounter Summary ---
Author Organization [facility] [place] [address] Care Team Providers Care Life Management Teacher Name Role Phone Luis E Narayan MD Primary Care Provider [phone] Encounter Details Date Type Department Care Team (Late st Contact Info) Description 09/14/2020 Telephone Family Medicine at [facility] [address] [place] [address] Silvio Alonzo Social History Tobacco Use Types [...] EST Records faxed to law office at [phone] * Telephone Encounter - Silvio Alonzo - [...] Narayan MD Subject:Other Dr. Narayan, my disability crop quantitative geneticist sent you some paperwork. I know you [...] AM EDT Appointment Mammography/[place] [address] Rodney Padilla MD [address] [facility] [place] [address] 05/01/2024 1:45 PM EDT Office [place] [address] Juanpablo Hernandez MD [facility] [place] [address] 05/23/2024 2:45 PM EST Clinical Support Family Medicine at [facility] [address] [place] [address] Julia Low [facility] 01/30/2025 1:30 PM EDT Laboratory Appointment Lab at [facility] Hematology Oncology [address] [place] [address] 01/30/2025 3:[address] [place] [address] Arturo Cordero MD [facility] [place] [address] 01/30/2025 4:15 PM EDT Office Visit Hematology [place] [address] Arturo Cordero MD [facility] [place] [address] documented as of this encounter Visit Diagnoses Not on filedocumented in this encounter Care Teams Life Management Teacher Relationship Specialty Start Date End Date Luis E Narayan MD [facility] [address] [place] [address] PCP - General Family Medicine 03/26/19 01/19/22 documented as of this encounter
--- OUTSIDE RECORDS SUMMARY | 2024-04-13 15:49 | XMS_ITS | Encounter Summary ---
Author Organization [facility] [place] [address] Care Team Providers Care Manager Android Name Role Phone Luis E Narayan MD Primary Care Provider Encounter Details Date Type Department Care Team (Latest Contact Info) Description 07/22/2020 10:04 AM EST - 07/22/2020 11:59 PM [facility] Hospital Encounter Mammography[place] [address] Luis E Narayan MD [facility] [address] [address] Encounter for screening mammogram for breast cancer [...] 08/05/2019 06/14/2021 fluticasone propionate (FLONASE) 50 mcg/actuation [place], Suspension 1 spray by Each Nare route [...] 05/01/2024 11:20 AM EDT Appointment Mammography/[place] [address] Rodney Padilla MD [address] [place] [address] 05/01/2024 1:45 PM EDT Office [place] [address] Juanpablo Hernandez MD [facility] [place] [address] 05/23/2024 2:45 PM EST Clinical Support Family Medicine at [facility] [address] [place] [address] Julia Low, [facility] 01/30/2025 1:30 PM EDT Laboratory Appointment Lab at [facility] Hematology Oncology [address] [place] [address] 01/30/2025 3:[address] [place] [address] Arturo Cordero MD [facility] HEMATOLOGY [place] [address] 01/30/2025 4:15 PM EDT Office Visit Hematology [place] [address] Arturo Cordero MD [facility] HEMATOLOGY [place] [address] documented as of this encounter Procedures Procedure [...] cancer documented in this encounter Care Teams Manager Android Relationship Specialty Start Date End Date Luis E Narayan MD [facility] [place] [address] PCP - General Family Medicine 03/26/19 01/19/22 documented as of this encounter
--- OUTSIDE RECORDS SUMMARY | 2024-04-13 15:49 | XMS_ITS | Encounter Summary ---
Author Organization [facility] [place] [address] Care Team Providers Care Financial Reporting Manager Name Role Phone Luis E Narayan MD Primary Care Provider Reason for Visit * Reason Onset Date Comments Questions 08/18/2020 Encounter Details Date Type Department Care Team (Late st Contact Info) Description 08/18/2020 Telephone Family Medicine at [facility] [address] [place] [address] Susanna Lopes, LABORER HEADING Questions Social History Tobacco Use Types Packs/Day [...] to get ECHO and stress test at [facility] done as outpatient Dr. Barbosa. Cardiology at will follow with these results. She will call [facility] to schedule this testing. * Telephone Encounter - Susanna Lopes LNA - 08/18/2020 11:24 AM EST Message: Patient is calling to speak with team regarding her recent visit to [facility]. Patient states she was supposed to be [...] send my- message: N Offered Appointment: N MA/Nurse/[place] contacted via: Message: Y Call: N Pager: N documented in this encounter Plan of Treatment Upcoming Encounters Date Type Department Care Team (Late st Contact Info) Description 05/01/2024 11:20 AM EDT Appointment Mammography/[place] [address] Rodney Padilla MD [address] [place] [address] 05/01/2024 1:45 PM EDT Office [place] [address] Juanpablo Hernandez MD [facility] [place] [address] 05/23/2024 2:45 PM EST Clinical Support Family Medicine at [facility] [address] [place] [address] Julia Low [facility] 01/30/2025 1:30 PM EDT Laboratory Appointment Lab at [facility] Hematology Oncology [address] [place] [address] 01/30/2025 3:[address] [place] [address] Arturo Cordero MD [facility] DR [place] [address] 01/30/2025 4:15 PM EDT Office Visit [place]ology [place] [address] Arturo Cordero MD [facility] DR HEMATOLOGY AND ONCOLOGY [place], [place] [phone] documented as of this encounter Visit Diagnoses Not on filedocumented in this encounter Care Teams Financial Reporting Manager Relationship Specialty Start Date End Date Luis E Narayan MD [facility] [address] [place] [address] PCP - General Family Medicine 03/26/19 01/19/22 documented as of this encounter
--- OUTSIDE RECORDS SUMMARY | 2024-04-13 15:49 | XMS_ITS | Encounter Summary ---
Author Organization [facility] Address [facility] [place] [address] Care Team Providers Care Video Player Mechanic Name Role Phone Luis E Narayan MD Primary Care Provider [phone] Reason for Visit * Reason Comments Post Op Encounter Details Date Type Department Care Team (Late st Contact Info) Description 06/16/2020 8:30 AM EST Office [place] [address] Juanpablo Hernandez MD [facility] [place] [address] Malignant melanoma of conjunctiva, left Social History [...] [address] Rodney Padilla MD [address] [facility] [place], [place] [address] 05/01/2024 1:45 PM EDT Office [place] [address] Juanpablo Hernandez MD [facility] [place] [address] 05/23/2024 2:45 PM EST Clinical Support Family Medicine at [facility] [address] [place] [address] Julia Low [facility] 01/30/2025 1:30 PM EDT Laboratory Appointment Lab at [facility] Hematology Oncology [address] [place] [address] 01/30/2025 3:[address] [place] [address] Arturo Cordero MD [facility] [address] HEMATOLOGY [place] [address] 01/30/2025 4:15 PM EDT Office Visit Hematology [place] [address] Arturo Cordero MD [facility] [address] HEMATOLOGY AND ONCOLOGY [place], [place] [address] documented as of this encounter Visit Diagnoses Diagnosis Malignant melanoma of conjunctiva, left documented in this encounter Care Teams Video Player Mechanic Relationship Specialty Start Date End Date Luis E Narayan MD [facility] [place] [address] PCP - General Family Medicine 03/26/19 01/19/22 documented as of this encounter
--- OUTSIDE RECORDS SUMMARY | 2024-04-13 15:49 | XMS_ITS | Encounter Summary ---
Author Organization [facility] [place] [address] Care Team Providers Care Bark Press Operator Name Role Phone Luis E Narayan MD Primary Care Provider [phone] Reason for Visit * Reason Onset Date Comments Follow-up 08/14/2020 Encounter Details Date Type Department Care Team (Late st Contact Info) Description 08/14/2020 Tele[place] [address] [facility] [place] [address] Follow-up Social History Tobacco Use Types Packs/Day [...] afternoon and wouldgive her a ring tomorrow. [phone] * Telephone Encounter - Chantell Dukes - [...] still can't see the claim made from [employer]. We went around and she states that [...] that it needed more information and the [facility] to submit a claim. [facility] pharmacy called back and spoke with Hillary to state that they do not compound. I called [facility] pharmacy and spoke with a Kati and [...] walked me through the PA process for [place] [employer] and where to find the forms. They also gave me the name of 2 pharmacies that compound. I left a message for [facility] to see if they compound mytomicin drops. I also called the other pharmacy [facility] tosee if they compound mytomicin into drops and they do not. Working on PA to send in today documented in this encounter Plan of Treatment Upcoming Encounters Date Type Department Care Team (Late st Contact Info) Description 05/01/2024 11:20 AM EDT Appointment Mammography/[place] [address] Rodney Padilla MD [address] [place] [address] 05/01/2024 1:45 PM EDT Office [place] [address] [facility] [place] [address] 05/23/2024 2:45 PM EST Clinical Support Family Medicine at [facility] [address] [place] [address] Julia Low, [facility] 01/30/2025 1:30 PM EDT Laboratory Appointment Lab at [facility] Hematology Oncology [address] [place] [address] 01/30/2025 3:[address] [place] [address] [facility] DR HEMATOLOG[place] [address] 01/30/2025 4:15 PM EDT Office Visit [place]ology [place] [address] [facility] [address] HEMATOLOGY [place] [address] documented as of this encounter Visit Diagnoses Not on filedocumented in this encounter Care Teams Bark Press Operator Relationship Specialty Start Date End Date Luis E Narayan MD [facility] [address] [place] [address] PCP - General Family Medicine 03/26/19 01/19/22 documented as of this encounter
--- OUTSIDE RECORDS SUMMARY | 2024-04-13 15:49 | XMS_ITS | Encounter Summary ---
[place] [address] Care Team Providers Care Supervisor Wire Rope Fabrication Name Role Phone Luis E Narayan MD Primary Care Provider Reason for Visit * Reason Onset Date Comments Medication Refill 06/25/2020 Encounter Details Date Type Department Care Team (Late st Contact Info) Description 06/25/2020 Refill Family Medicine at [facility] [address] [place] [address] Bonny Emanuel MD [address] [place] [address] Social History Tobacco Use Types Packs/Day Years [...] 05/01/2024 11:20 AM EDT Appointment Mammography/[place] [address] Rodney Padilla MD [address] [place] [place] [address] 05/01/2024 1:45 PM EDT Office [place] [address] Juanpablo Hernandez MD [facility] [address] 05/23/2024 2:45 PM EST Clinical Support Family Medicine at [facility] [address] [place] [address] Julia Low, [facility] 01/30/2025 1:30 PM EDT Laboratory Appointment Lab at [facility] Hematology Oncology [address] [place] [address] 01/30/2025 3:[address] [place] [address] Arturo Cordero MD [facility] DR HEMATOLOGY [place] [address] 01/30/2025 4:15 PM EDT Office Visit Hematology [place] [address] Arturo Cordero MD [facility] DR HEMATOLOGY [place] [address] documented as of this encounter Visit Diagnoses Not on filedocumented in this encounter Care Teams Supervisor Wire Rope Fabrication Relationship Specialty Start Date End Date Luis E Narayan MD [facility] [address] [place] [address] PCP - General Family Medicine 03/26/19 01/19/22 documented as of this encounter
--- OUTSIDE RECORDS SUMMARY | 2024-04-13 15:49 | XMS_ITS | Encounter Summary ---
Author Organization [facility] [place] [address] Care Team Providers Care Tie Tape Machine Operator Name Role Phone Luis E Narayan MD Primary Care Provider Reason for Referral * Consultation (Routine) - Closed Specialty Diagnoses / Procedures Referred By Gonzalez kumari Referred To Contact Hematology and Oncology Diagnoses Malignant melanoma of conjunctiva, left Molly Monique MD [facility] DR HEMATOLOGY/[place] [address] [facility] [address] [place] [address] Referral ID Status Reason Start Date Expiration Date V isits Requested Visits Authorized [id number] Closed Consult, Test & Treat 06/16/2020 06/16/2021 1 1 Encounter Details Date Type Department Care Team (Late st Contact Info) Description 06/16/2020 10:00 AM EST Office Visit Hematology [place] [address] Arturo Cordero MD [facility] DR HEMATOLOGY [place] [address] Leandra Lopes, GARMENT MANUFACTURING SUPERVISOR [facility] DR HEMATOLOGY [place] [address] Malignant melanoma of conjunctiva, left (Primary Dx); [...] from the original note were not included. [facility] FOLLOW UP NOTE REFERING PHYSICIAN: Dr. [...] management - fall 2018: saw a new bobbin winder and was referred to Dr. 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 Medina - 03/31/2020: saw her bobbin winder Dr. Hernandez and was noted to have [...] uses inhalerswith good effect ??? 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 PRO EXCIS CORNEA LESN Left 05/14/2020 EXCISION OF LESION, CORNEA, EXCEPT PTERYGIUM (WRVU 7.5) performed by Juanpablo Hernandez MD at [facility] ??? PRO LAP, PARTIAL NEPHRECTOMY Left 06/28/2019 LAPAROSCOPY, PARTIAL NEPHRECTOMY, ROBOTIC ASSIST (WRVU 27.41) performed by Avila Medina MD at [facility] MA[facility] OR ??? 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 Hernandez in Ophthalmology. [...] AM EDT Appointment Mammography/[place] [address] Rodney Padilla MD [address] [place] [address] 05/01/2024 1:45 PM EDT Office [place] [address] Juanpablo Hernandez MD [facility] [place] [address] 05/23/2024 2:45 PM EST Clinical Support Family Medicine at [address] [place] [address] Julia Low Prabhu, [facility] 01/30/2025 1:30 PM EDT Laboratory Appointment Lab at [place] Hematology Oncology [address] [place] [address] 01/30/2025 3:[address] [place] [address] Arturo Cordero MD [facility] DR HEMATOLOGY [place] [address] 01/30/2025 4:15 PM EDT Office Visit Hematology [place] [address] Arturo Cordero MD [facility] DR HEMATOLOGY [place] [address] Scheduled Orders Name Type Priority Associated Diagnoses [...] -Left Neck PATIENT INFO: ID #: ? [id number] ?: ??[birth year] (59 yrs)(F) Name: ? PATIENCE MANJARREZ ? Visit Date: 09/15/2020 09:42 am PERFORMED BY: Performed By: ? Kaela Bruno RDMS Attending: ?Sofy COLVIN, Nakia Andrade Referred By: ?ARTURO [place] Location: ? [place] SERVICE(S) PROVIDED: USTN - Soft Tissue Neck or Head - [id number] ? [id number] INDICATIONS: History of left eye conjunctival melanoma [...] Report -Left Neck PATIENT INFO: ID #: [id number] : [birth year] (59 yrs)(F) Name: PATIENCE MANJARREZ Visit Date: 09/15/2020 09:42 am PERFORMED BY: Performed By: Kaela Bruno RDMS Attending: Nakia oGetz MD Referred By: ARTURO CORDERO Location: [place] SERVICE(S) PROVIDED: USTN - Soft Tissue Neck or Head - [id number] INDICATIONS: History of left eye conjunctival melanoma [...] this report, please contact the number below. Nakia Goetz, Staff Physician Electronically Signed Final Report 09/15/2020 10:01 am Arturo Cordero MD IMG US GEN ORDERABLE S documented in this encounter Visit Diagnoses Diagnosis Malignant melanoma of conjunctiva, left- Primary Anxiety Anxiety state, unspecified History of renal cell cancer Malignant melanoma of conjunctiva, left documented in this encounter Care Teams Tie Tape Machine Operator Relationship Specialty Start Date End Date Luis E Narayan MD [facility] [address] [address] PCP - General Family Medicine 03/26/19 01/19/22 documented as of this encounter
--- OUTSIDE RECORDS SUMMARY | 2024-04-13 15:49 | XMS_ITS | Encounter Summary ---
Author Organization Pending Sale To [facility] Address [facility] [place] [address] Care Team Providers Care Map Mounter Name Role Phone Luis E Narayan MD Primary Care Provider +1- [phone] Encounter Details Date Type Department Care Team (Late st Contact Info) Description 06/17/2020 Telephone [place] [address] Juanpablo Hernandez MD [facility] [place] [address] Social History Tobacco Use Types Packs/Day Years [...] do - please call pt back at [phone] to discuss the next options * Telephone Encounter - Lida Bains - 06/19/2020 10:57 AM EST Phone number given. * Telephone Encounter - Christine Madera - 06/17/2020 10:12 AM EST Left VM letting Alize know that per her conversation with Dr. Hernandez yesterday[facility]. When Alize calls back please let her know to call [phone] to register for the remote consult documented in this encounter Plan of Treatment Upcoming Encounters Date Type Department Care Team (Late st Contact Info) Description 05/01/2024 11:20 AM EDT Appointment Mammography/[place] [address] Rodney Padilla MD [address] [place] [address] 05/01/2024 1:45 PM EDT Office [place] [address] Juanpablo Hernandez MD [facility] [place] [address] 05/23/2024 2:45 PM EST Clinical Support Family Medicine at [facility] [address] [place] [address] Julia Low [facility] 01/30/2025 1:30 PM EDT Laboratory Appointment Lab at [facility] Hematology Oncology [address] [place] [address] 01/30/2025 3:[address] [place] [address] Arturo Cordero MD [facility] H[place]ATOLOGY [place] [address] 01/30/2025 4:15 PM EDT Office Visit Hematology [place] [address] Arturo Cordero MD [facility] [place]ATOLOG[place] [address] documented as of this encounter Visit Diagnoses Not on filedocumented in this encounter Care Teams Map Mounter Relationship Specialty Start Date End Date Luis E Narayan MD [facility] DR LIL[address] [place] [address] PCP - General Family Medicine 03/26/19 01/19/22 documented as of this encounter
--- OUTSIDE RECORDS SUMMARY | 2024-04-13 15:49 | XMS_ITS | Encounter Summary ---
Author Organization [facility] [place] [address] Care Team Providers Care Nuclear Medicine Tech Name Role Phone Luis E Narayan MD Primary Care Provider +1- [phone] Encounter Details Date Type Department Care Team (Late st Contact Info) Description 08/21/2020 Telephone Family Medicine at [facility] [address] [place] [address] Prakashiker, Lacie L Social History Tobacco Use [...] information. I did send back to the heating mechanic with that comment. My recommednation is for herto schedule with a physician who does disability evaluations. Most rehab aide have a list of physicians who do that work. I am not sure who around here does. We can discuss at next visit if she wants. thanks * Telephone Encounter - Silvio Alonzo - 08/21/2020 3:15 PM EST Records requested faxed to [facility] * Telephone Encounter - Thomas Tyson RN - 08/21/2020 2:36 PM EST Patient Alize called in today to request results from EKG, ECHO, and labs from [facility]. Patient identity confirmed by full name and . Patient reports she was seen at the ED at [facility] for chest pressure with sob. Patient states [...] letters sent to our office from her heating mechanic. Patient had no further questions or concerns anddid not want a follow up at this time. documented in this encounter Plan of Treatment Upcoming Encounters Date Type Department Care Team (Late st Contact Info) Description 05/01/2024 11:20 AM EDT Appointment Mammography/[place] [address] Rodney Padilla MD [address] [place] [address] 05/01/2024 1:45 PM EDT Office [place] [address] Juanpablo Hernandez MD [facility] [place] [address] 05/23/2024 2:45 PM EST Clinical Support Family Medicine at [facility] [address] [place] [address] Julia Low RPH 01/30/2025 1:30 PM EDT Laboratory Appointment Lab at [facility] Hematology Oncology [address] [place] [address] 01/30/2025 3:[address] [place] [address] Arturo Cordero MD [facility] [place] [address] 01/30/2025 4:15 PM EDT Office Visit Hematology [place] [address] Arturo Cordero MD [facility] [place] [address] documented as of this encounter Visit Diagnoses Not on filedocumented in this encounter Care Teams Nuclear Medicine Tech Relationship Specialty Start Date End Date Luis E Narayan MD [facility] [address] [place] [address] PCP - General Family Medicine 03/26/19 01/19/22 documented as of this encounter
--- OUTSIDE RECORDS SUMMARY | 2024-04-13 15:49 | XMS_ITS | Encounter Summary ---
Author Organization [facility] [place] [address] Care Team Providers Care Handyperson Name Role Phone Luis E Narayan MD Primary Care Provider Encounter Details Date Type Department Care Team (Late st Contact Info) Description 08/24/2020 Tele[address] [facility] [address] [place] [phone] Debbie Brice, CCMA Social History Tobacco Use [...] 05/01/2024 11:20 AM EDT Appointment Mammography/[place] [address] Rodney Padilla MD [address] [place] [address] 05/01/2024 1:45 PM EDT Office [place] [address] Juanpablo Hernandez MD [facility] [place] [address] 05/23/2024 2:45 PM EST Clinical Support Family Medicine at [facility] [address] [place] [address] Julia Low [facility] 01/30/2025 1:30 PM EDT Laboratory Appointment Lab at [facility] Hematology Oncology [address] [place] [address] 01/30/2025 3:[address] [place] [address] Arturo Cordero MD [facility] [place] [address] 01/30/2025 4:15 PM EDT Office Visit Hematology [place] [address] Arturo Cordero MD [facility] [place] [address] documented as of this encounter Visit Diagnoses Not on filedocumented in this encounter Care Teams Handyperson Relationship Specialty Start Date End Date Luis E Narayan MD [facility] [place] [address] PCP - General Family Medicine 03/26/19 01/19/22 documented as of this encounter
--- OUTSIDE RECORDS SUMMARY | 2024-04-13 15:49 | XMS_ITS | Encounter Summary ---
Author Organization [facility] Address [facility] [place] [address] Care Team Providers Care Nurses Director Name Role Phone Luis E Nraayan MD Primary Care Provider Encounter Details Date Type Department Care Team (Latest Contact Info) Description 08/24/2020 6:00 PM EST TH Visit (TeleHealth) Family Medicine at [facility] [address] [place] [address] Earl Valdez MD [facility] [address] [place] [address] Atypical chest pain Social History Tobacco Use [...] was seen in an emergency room at [facility] on 08/17.This was for chest pressure. [...] 05/01/2024 11:20 AM EDT Appointment Mammography/[place] [address] Rodney Padilla MD [address] [address] 05/01/2024 1:45 PM EDT Office [place] [address] Juanpablo Hernandez MD [facility] [place] [address] 05/23/2024 2:45 PM EST Clinical Support Family Medicine at [facility] [address] [place] [address] Julia Low, [facility] 01/30/2025 1:30 PM EDT Laboratory Appointment Lab at [facility] Hematology Oncology [address] [place] [address] 01/30/2025 3:[address] [place] [address] Arturo Cordero MD [facility] HEMATOLOGY [place] [address] 01/30/2025 4:15 PM EDT Office Visit H[place]ology [place] [address] Arturo Cordero MD [facility] HEMATOLOGY [place] [address] documented as of this encounter Visit Diagnoses Diagnosis Atypical chest pain Other chest pain documented in this encounter Care Teams Nurses Director Relationship Specialty Start Date End Date Luis E Narayan MD [facility] [address] [place] [address] PCP - General Family Medicine 03/26/19 01/19/22 documented as of this encounter
--- OUTSIDE RECORDS SUMMARY | 2024-04-13 15:49 | XMS_ITS | Encounter Summary ---
Author [place] [address] Care Team Providers Care Senior Clinical Study Manager Name Role Phone Luis E Narayan MD Primary Care Provider +1- [phone] Reason for Visit * Reason Onset Date Comments Other 08/24/2020 Encounter Details Date Type Department Care Team (Late Contact Info) Description 08/24/2020 Telephone Family Medicine at [facility] [address] [place] [address] Gia Bruce Other Social History Tobacco Use [...] Department Care Team (Late Contact Info) Description 05/01/2024 11:20 AM EDT Appointment Mammography/[place] [address] Rodney Padilla MD [address] [place] [address] 05/01/2024 1:45 PM EDT [place] [address] Juanpablo Hernandez MD [facility] DR [place] [address] 05/23/2024 2:45 PM EST Clinical Support Family Medicine at [facility] [address] [place] [address] Julia Low [facility] 01/30/2025 1:30 PM EDT Laboratory Appointment Lab at [facility] Hematology Oncology [address] [place] [address] 01/30/2025 3:[address] [place] [address] Arturo Cordero MD [facility] DR HEMATOLOGY [place] [address] 01/30/2025 4:15 PM EDT Office Visit Hematology [place] [address] Arturo Cordero MD [facility] DR HEMATOLOGY [place] [address] documented as of this encounter Visit Diagnoses Not on filedocumented in this encounter Care Teams Senior Clinical Study Manager Relationship Specialty Start Date End Date Luis E Narayan MD [facility] DR LIL[address] WALKER-[place] [address] PCP - General Family Medicine 03/26/19 01/19/22 documented as of this encounter
--- OUTSIDE RECORDS SUMMARY | 2024-04-13 15:49 | XMS_ITS | Encounter Summary ---
Author Organization [facility] Address [facility] [place] [address] Care Team Providers Care Pediatric Speech Therapist Name Role Phone Daryn Garrett MD Primary Care Provider Reason for Visit * Reason Onset Date Comments Medication Refill 09/12/2020 Encounter Details Date Type Department Care Team (Late st Contact Info) Description 09/12/2020 Refill Family Medicine at [facility] [address] [place] [address] Luis E Narayan MD [facility] [address] LIL[address] [place] [address] Social History Tobacco Use Types Packs/Day Years [...] 05/01/2024 11:20 AM EDT Appointment Mammography/[place] [address] Rodney Padilla MD [address] [place] [address] 05/01/2024 1:45 PM EDT Office [place] [address] Juanpablo Hernandez MD [facility] [place] [address] 05/23/2024 2:45 PM EST Clinical Support Family Medicine at [facility] [address] [place] [address] Julia Low [facility] 01/30/2025 1:30 PM EDT Laboratory Appointment Lab at [facility] Hematology Oncology [address] [place] [address] 01/30/2025 3:[address] [place] [address] Arturo Cordero MD [facility] [place] [address] 01/30/2025 4:15 PM EDT Office Visit Hematology [place] [address] Arturo Cordero MD [facility] [place] [address] documented as of this encounter Visit Diagnoses Not on filedocumented in this encounter Care Teams Pediatric Speech Therapist Relationship Specialty Start Date End Date Daryn Garrett MD [facility] [address] [place] [address] PCP - General 04/10/24 documented as of this encounter
--- OUTSIDE RECORDS SUMMARY | 2024-04-13 15:49 | XMS_ITS | Encounter Summary ---
[place] [address] Care Team Providers Care Block Out Machine Operator Name Role Phone Luis E Narayan MD Primary Care Provider +1- [phone] Reason for Visit * Reason Onset Date Comments Medication Refill 06/22/2020 Encounter Details Date Type Department Care Team (Late st Contact Info) Description 06/22/2020 Refill Family Medicine at [facility] [address] [place] [address] Bonny Emanuel MD [address] [place] [address] Mixed hyperlipidemia Social History Tobacco Use Types [...] 05/01/2024 11:20 AM EDT Appointment Mammography/[place] [address] Rodney Padilla MD [address] [place] [address] 05/01/2024 1:45 PM EDT Office [place] [address] Juanpablo Hernandez MD [facility] [address] 05/23/2024 2:45 PM EST Clinical Support Family Medicine at [facility] [address] [address] Julia Low, [facility] 01/30/2025 1:30 PM EDT Laboratory Appointment Lab at [facility] Hematology Oncology [address] [place] [address] 01/30/2025 3:[address] [place] [address] Arturo Cordero MD [facility] DR [place] [address] 01/30/2025 4:15 PM EDT Office Visit Hematology [place] [address] Arturo Cordero MD [facility] DR [place] [address] documented as of this encounter Visit Diagnoses Diagnosis Mixed hyperlipidemia documented in this encounter Care Teams Block Out Machine Operator Relationship Specialty Start Date End Date Luis E Narayan MD [facility] [address] [place] [address] PCP - General Family Medicine 03/26/19 01/19/22 documented as of this encounter
--- OUTSIDE RECORDS SUMMARY | 2024-04-13 15:49 | XMS_ITS | Encounter Summary ---
Author Organization [facility] [address] Care Team Providers Care Ehs Specialist Name Role Phone Luis E Narayan MD Primary Care Provider +1- [phone] Reason for Visit * Reason Onset Date Comments Medication Problem 08/10/2020 Pharmacist as micha for call back Encounter Details Date Type Department Care Team (Late st Contact Info) Description 08/10/2020 Telephone [place] [address] Juanpablo Hernandez MD [facility] [place] [address] Medication Problem (Pharmacist asking for call back) [...] ??3:15 PM Author Type: Physician Status: Signed Crime Specialist: Juanpablo Hernandez MD (Physician) Encounter Diagnosis Name [...] 05/01/2024 11:20 AM EDT Appointment Mammography/[place] [address] Rodney Padilla MD [address] [place] [address] 05/01/2024 1:45 PM EDT Office [place] [address] Juanpablo Hernandez MD [facility] [address] 05/23/2024 2:45 PM [facility] Clinical Support Family Medicine at [facility] [address] [place] [address] Julia Low, [facility] 01/30/2025 1:30 PM EDT Laboratory Appointment Lab at [facility] Hematology Oncology [address] [place] [address] 01/30/2025 3:[address] [place] [address] Arturo Cordero MD [facility] [address] [place] [address] 01/30/2025 4:15 PM EDT Office Visit Hematology [place] [address] Arturo Cordero MD [facility] [place] [address] documented as of this encounter Visit Diagnoses Not on filedocumented in this encounter Care Teams Ehs Specialist Relationship Specialty Start Date End Date Luis E Narayan MD [facility] [address] [place] [address] PCP - General Family Medicine 03/26/19 01/19/22 documented as of this encounter
--- OUTSIDE RECORDS SUMMARY | 2024-04-13 15:49 | XMS_ITS | Encounter Summary ---
[place] [address] Care Team Providers Care Automotive Parts Specialist Name Role Phone Luis E Narayan MD Primary Care Provider Encounter Details Date Type Department Care Team (Latest Contact Info) Description 06/16/2020 10:30 AM EST Clinical Support Hematology [place] [address] Malika Ye Cigarette nicotine dependence without complication [...] Nicotine inhaler) Expected Quit Date: 09/28/19 Given [facility] Tobacco Resource Packet?: Yes Eligible for Lung Cancer Screening?: No Follow up with: [facility] Smoking Cessation Program ..Thoracic Surgery - Tobacco Cessation Consultation [facility] [place], [place] [address] FAX: HPI: Alize Gramajo is a 59 y.o. female who is being seen today for tobacco cessation. Type of tobacco used: () Smokeless tobacco () e-cigarette (X)Cigarettes Brand currently smoking: [place] Current amount: 1 ppd Cost per [...] smoking cessation counseling. She is currently smoking [place] G[place] and does kind of wish to [...] in places where it is forbidden? (ex. congregational) No Yes 0 3. Which cigarette would [...] an rx for inhaler be sent to [facility] [place]. 2. Discussed behavioral change including distraction, exercise, positive thinking, deep breathing, using anxiety medications if needed, asking for help 3. 30 minutes of exercise daily 4. Call with any questions or concerns 5. Follow up in one week Malika Ye 06/16/20 Thoracic Surgery - Tobacco Cessation [facility] documented in this encounter Plan of Treatment Upcoming Encounters Date Type Department Care Team (Late st Contact Info) Description 05/01/2024 11:20 AM EDT Appointment Mammography/[place] [address] Rodney Padilla MD [address] [facility] [place], [place] [address] 05/01/2024 1:45 PM EDT Office [place] [address] Juanpablo Hernandez MD [facility] [place] [place] [address] 05/23/2024 2:45 PM EST Clinical Support Family Medicine at [facility] [address] [place] [address] Julia Low, [facility] 01/30/2025 1:30 PM EDT Laboratory Appointment Lab at [facility] Hematology Oncology [address] [place] [address] 01/30/2025 3:[address] [place] [address] Arturo Cordero MD [facility] DR [place] [address] 01/30/2025 4:15 PM EDT Office Visit Hematology [place] [address] Arturo Cordero MD [facility] [place] [address] documented as of this encounter Visit Diagnoses Diagnosis Cigarette nicotine dependence without complication Tobacco use disorder documented in this encounter Care Teams Automotive Parts Specialist Relationship Specialty Start Date End Date Luis E Narayan MD [facility] DR [address] [place] [address] PCP - General Family Medicine 03/26/19 01/19/22 documented as of this encounter
--- OUTSIDE RECORDS SUMMARY | 2024-04-13 15:49 | XMS_ITS | Encounter Summary ---
Author Organization [facility] [place] [address] Care Team Providers Care Journeyman Pipefitter Name Role Phone Luis E Narayan MD Primary Care Provider [phone] Encounter Details Date Type Department Care Team (Late st Contact Info) Description 08/17/2020 Notes Only Hematology [place] [address] Boogie Munroe MD [facility] DR HEMATOLOGY/[place] [address] Social History Tobacco Use Types Packs/Day Years [...] 05/01/2024 11:20 AM EDT Appointment Mammography/[place] [address] Rodney Padilla MD [address] [place] [address] 05/01/2024 1:45 PM EDT Office [place] [address] Juanpablo Hernandez MD [facility] [place] [address] 05/23/2024 2:45 PM EST Clinical Support Family Medicine at [facility] [address] [place] [address] Julia Low [facility] 01/30/2025 1:30 PM EDT Laboratory Appointment Lab at [facility] Hematology Oncology [address] [place] [address] 01/30/2025 3:[address] [place] [address] Arturo Cordero MD [facility] [place] [address] 01/30/2025 4:15 PM EDT Office Visit Hematology [place] [address] Arturo Cordero MD [facility] [place] [address] documented as of this encounter Visit Diagnoses Not on filedocumented in this encounter Care Teams Journeyman Pipefitter Relationship Specialty Start Date End Date Luis E Narayan MD [facility] [address] [place] [address] PCP - General Family Medicine 03/26/19 01/19/22 documented as of this encounter
--- OUTSIDE RECORDS SUMMARY | 2024-04-13 15:49 | XMS_ITS | Encounter Summary ---
[place] [address] Care Team Providers Care Nuclear Engineering Technician Name Role Phone Luis E Narayan MD Primary Care Provider Reason for Visit * Reason Comments Chest Pain Encounter Details Date Type Department Care Team (Late st Contact Info) Description 09/11/2020 2:09 PM EST - 09/11/2020 5:51 PM EST Emergency [place] [address] Hair Tanner MD [facility] DR [place]ER[place] [address] Costochondritis; Constipation, unspecified constipation type Discharge Disposition: [...] be sent through Care Everywhere. * Costochondritis ([place]i) * Constipation ([place]i) documented in this encounter Medications at Time of Discharge Medication Sig Dispensed Refills Start Date End Date traZODone (Desyrel) 100 mg Tablet Take 1 tablet by mouth nightly. 90 tablet 3 06/26/2020 aspirin EC 81 mg Tablet, Delayed Release (E.C.) Take 81 mg by mouth daily. fluticasone propionate (FLONASE) 50 mcg/actuation [place], Suspension 1 spray by Each Nare route [...] 10/10. Notably, pt was recently seen at [facility] on 08/17 for unrelated chest pressure. [...] uses inhalerswith good effect ??? 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 PRO EXCIS CORNEA LESN Left 05/14/2020 EXCISION OF LESION, CORNEA, EXCEPT PTERYGIUM (WRVU 7.5) performed by Juanpablo Hernandez MD at [facility] ??? PRO LAP, PARTIAL NEPHRECTOMY Left 06/28/2019 LAPAROSCOPY, PARTIAL NEPHRECTOMY, ROBOTIC ASSIST (WRVU 27.41) performed by Avila Medina MD at [facility] MA[facility] OR ??? PRO PLACE AMNIOTIC MEMBRANE OCULAR SURFACE;SINGLE LAYER SUTURED Left 05/14/2020 PLACEMENT OF AMNIOTIC MEMBRANE ON THE OCULAR SURFACE,SINGLE LAYER,SUTURED (WRVU 2.5) performed by Juanpablo Hernandez MD at [facility] Social History:1PPD smoker, non-drinker, no other [...] Doppler, and color-flow Echocardiogram Patient Location: Out-Patient Biological Scientist: Arlen Coker RDCS (AE) Indications: Chest pain, [...] this report, please contact the number below. Abdomen Flat & Upright (Exam End: 09/11/2020 [...] this report, please contact the number below. Assessment and Plan: MDM 59 y.o. female [...] [x] None Exposure [] Recent travel outside [place] [] Contact with known or suspected positive [...] 12/17 Pt sent to Urgent Care from [facility]. Pt sent ED from Urgent Care with print out of normal EKG . Pt A+Ox4, respirations even and unlabored, PWD, VSS with HTN, NAD. documented in this encounter Plan of Treatment Upcoming Encounters Date Type Department Care Team (Late st Contact Info) Description 05/01/2024 11:20 AM EDT Appointment Mammography/[place] [address] Rodney Padilla MD [address] [place] [address] 05/01/2024 1:45 PM EDT Office [place] [address] Juanpablo Hernandez MD [facility] [place] [address] 05/23/2024 2:45 PM EST Clinical Support Family Medicine at [facility] [address] [place] [address] Julia Low, [facility] 01/30/2025 1:30 PM EDT Laboratory Appointment Lab at [facility] [place] On[place] [address] [place] [address] 01/30/2025 3:[address] [place] [phone] Arturo Cordero MD [facility] DR HEMATOLOGY [place] [address] 01/30/2025 4:15 PM EDT Office Visit Hematology [place] [address] Arturo Cordero MD [facility] DR HEMATOLOGY [place] [address] documented as of this encounter Procedures Procedure [...] please contact the number below. ? Narrative 09/11/2020 3:26 PM EST EXAMINATION: XR [...] this report, please contact the number below. Hair Tanner MD IMG DX ORDERABLES * [...] please contact the number below. ? Narrative 09/11/2020 3:52 PM EST EXAMINATION: XR [...] this report, please contact the number below. Hair Tanner MD IMG DX ORDERABLES * Gold Tube HOLD (09/11/2020 2:45 PM EST) Gold Hold Sample in lab. [facility] Blood specimen (specimen) Venous Draw / Unknown 09/11/2020 2:45 PM EST 09/11/2020 2:55 PM EST Mal CARLIN CHEMISTRY ORDERABLES [facility] [place] [address] * Blue Tube HOLD (09/11/2020 2:45 PM EST) [facility] Blue Hold Sample in lab. [facility] Blood specimen (specimen) Venous Draw / Unknown 09/11/2020 2:45 PM EST 09/11/2020 2:55 PM EST Mal CARLIN [place] [address] * Differential, Automated (09/11/2020 2:45 PM EST) [facility] Neutrophil % 58.6 % [facility] Neutrophil Absolute 4.51 1.70 - 6.10 x10(3)/[facility] Lymph % 31.7 % [facility] Lymphocytes Abs 2.4 0.9 - 3.2 x10(3)/[facility] LABOR[facility]ORY Monocyte % 7.4 % [facility] Monocyte Abs 0.6 0.3 - 0.9 x10(3)/[facility] LABORATORY Eos % 1.4 % [facility] Eosinophils Abs 0.1 0.0 - 0.4 x10(3)/[facility] LABORATORY Basophil % 0.6 % [facility] Baso Absolute 0.0 0.0 - 0.1 x10(3)/[facility] LABOR[facility]ORY Immature Gran % 0.30 % [facility] Comment: Immature granulocytes(IG's)percentage and absolute count will include metamyelocytes, myelocytes, and promyelocytes. Blood smears from CBCs yielding IG's will be scanned manually for concordance. If this scan disagrees with the automated IG or if promyelocytes are noted, a manual differential will be performed. Immature Gran Absolute 0.02 0.00 - 0.04 x10(3)/[facility] Blood specimen (specimen) 09/11/2020 2:45 PM EST 09/11/2020 2:54 PM EST Narrative Resulting Agency Comment Spec In Lab Mal CARLIN HEMATOLOGY ORDERABLE S [facility] [place] [address] * (ABNORMAL) Hemogram (09/11/2020 2:45 PM EST) White Blood Cell 7.7 4.0 - 9.5 x10(3)/mc L [facility] Red Blood Cell 4.76 4.00 - 5.21 x10(6)/mc L [facility] Hemoglobin 13.7 11.7 - 15.5 gm/dL [facility] Hematocrit 40.8 35.7 - 45.8 % [facility] Mean Cell Volume 85.7 82.6 - 94.4 fL [facility] Mean Cell Hemoglobin 28.8 27.1 - 32.0 pg [facility] Mean Cell Hemoglobin Concentration 33.6 31.7 - 35.0 gm/dL [facility] Platelet 371(H) 145 - 357 x10(3)/mc L [facility] RDW Standard Deviation 41.8 37.0 - 46.0 fL [facility] RDW coefficient of variation 13.3 11.5 - 14.1 % [facility] Mean Platelet Volume 9.0 7.6 - 12.9 fL [facility] NRBC% auto 0.0 % [facility] NRBC Absolute 0.000 0.000 - 0.000 x10(3)/mc L [facility] Blood specimen (specimen) 09/11/2020 2:45 PM EST 09/11/2020 2:54 PM EST Narrative Resulting Agency Comment Spec In Lab Mal CARLIN HEMATOLOGY ORDERABLE S Performing Organization Address City/[facility]/ZIP Co de Phone Number [facility] [place] [address] * Troponin (09/11/2020 2:45 PM EST) Pathologist [facility] Troponin-T <0.01 0.00 - 0.00 ng/mL [facility] Comment: The 99th percentile for Troponin T is less than 0.01 ng/mL, any detectable cTnT concentration using this assay should be considered elevated. According to the third universal definition of myocardial infarction the following criteria with a clinical presentation consistent with acute myocardial ischemia meets the diagnosis for a myocardial infarction ([place]). Detection of a rise and/or fall of cTnT, with at least one value greater than the 99th percentile (> or = 0.01) and with at least one of the following ?? Symptoms of ischemia ?? New or presumed new significant LC-innjgyc-P wave (ST-T) changes or new left bundle [...] additional sample may be indicated. Reference: Third [place] Definition of Myocardial Infarction. Journal of the [place] College [employer] 2012;60:1581-98 Blood specimen (specimen) 09/11/2020 2:45 PM EST 09/11/2020 2:54 PM EST Narrative Resulting Agency Comment Spec In Lab Juanpablo Nelson MD CHEMISTRY ORDERABLES Performing Organization Address [facility]/ZIP Co de Phone Number [facility] [place] [address] * Lipase (09/11/2020 2:45 PM EST) [facility] Lipase 38 0 - 60 unit/L [facility] Blood specimen (specimen) 09/11/2020 2:45 PM EST 09/11/2020 2:54 PM EST Narrative Resulting Agency Comment Spec In Lab Juanpablo Nelson MD CHEMISTRY ORDERABLES Performing Organization Address [facility] Co de Phone Number [facility] [place] [address] * (ABNORMAL) Hepatic Function Panel (09/11/2020 2:45 PM EST) [facility] Protein, Total 7.5 6.1 - 8.0 gm/dL [facility] Albumin 4.6 3.2 - 5.2 gm/dL [facility] Aspartate Aminotransferase 20 0 - 30 unit/L [facility] Alanine Aminotransferase 22 0 - 30 unit/L [facility] Alkaline Phosphatase 115(H) 35 - 105 unit/L [facility] Bilirubin, Total 0.4 0.2 - 1.3 mg/dL [facility] Bilirubin, Direct 0.1 0.0 - 0.3 mg/dL [facility] Blood specimen (specimen) 09/11/2020 2:45 PM EST 09/11/2020 2:54 PM EST Narrative Resulting Agency Comment Spec In Lab Juanpablo Nelson MD CHEMISTRY ORDERABLES Performing Organization Address [facility] Co de Phone Number [facility] [place] [address] * Basic Metabolic Panel (non-fasting) (09/11/2020 2:45 PM EST) [facility] Glucose 89 65 - 199 mg/dL [facility] Comment:Diabetes: >=200 mg/d L plus symptoms Blood Urea Nitrogen 14 8 - 18 mg/dL [facility] Creatinine 0.88 0.70 - 1.20 mg/dL [facility] Sodium 141 135 - 145 mmol/L [facility] Potassium 4.3 3.5 - 5.0 mmol/L [facility] Comment: Please note: ??Patients with WBC >100,000 may have falsely elevated Potassium levels. ??For accurate Potassium quantification in these patients send serum separator tube (gold top) for subsequent determinations. ??Contact the Clinical Chemistry Laboratory if there are any questions. Chloride 103 98 - 107 mmol/L [facility] Carbon Dioxide 25 22 - 31 mmol/L [facility] Anion Gap 13 5 - 15 mmol/L [facility] Calcium 9.5 8.5 - 10.5 mg/dL [facility] Est Glomerular Filtration Rate 71 >=60 mL/min/1. 73 m?? [facility] Comment: This patient? s [...] In Lab Juanpablo Nelson MD CHEMISTRY ORDERABLES [facility] [place] [id number] * EKG 12 Lead (09/11/2020 2:20 PM EST) Ventricular rate 75 BPM MUSE SYSTEM Atrial Rate 75 BPM MUSE SYSTEM P-R Interval 170 ms MUSE SYSTEM QRS Duration 92 ms MUSE SYSTEM Q-T Interval 390 ms MUSE SYSTEM QTC Calculated (Bezet) 435 ms MUSE SYSTEM Calculated P Charlo 53 degrees MUSE SYSTEM Calculated R Charlo 3 degrees MUSE SYSTEM Calculated T Charlo 54 degrees MUSE SYSTEM INTERPRETATION Normal sinus rhythm Normal ECG When compared with ECG of 14-FEB-2019 22:28, Aberrant conduction is no longer Present Confirmed by Radha Lawrence ([id number]) on 09/11/2020 7:23:38 PM MUSE SYSTEM 09/11/2020 2:20 PM EST 09/11/2020 7:23 PM EST Juanpablo Nelson MD ECG ORDERABLES Assignment Editor SYSTEM documented in this encounter Visit Diagnoses Diagnosis Costochondritis Tietze's disease Constipation, unspecified constipation type documented in this encounter Administered Medications Inactive Administered Medications - up to 3 most recent administrations Medication Order MAR Action Action Date Dose Rate Site aspirin chewable tablet 243 mg 243 mg, Oral, ONCE, 1 dose, On 09/11/20 at 1407, STAT Given 09/11/2020 3:30 PM EST 243 mg documented in this encounter Active and Recently Administered Medications Times are shown in EST. Scheduled Medication Order 09/09/2020 09/10/2020 09/11/2020 aspirin chewable tablet 243 mg (COMPLETED) 243 mg, Oral, ONCE, 1 dose, On Mon09/11/20 at 1407, STAT 1530 (Given - Provid er: Elías Miranda NRP) documented in this encounter Care Teams Nuclear Engineering Technician Relationship Specialty Start Date End Date Luis E Narayan MD [facility] [address]-[place] [address] PCP - General Family Medicine 03/26/19 01/19/22 documented as of this encounter
--- OUTSIDE RECORDS SUMMARY | 2024-04-13 15:49 | XMS_ITS | Encounter Summary ---
Author Organization [facility] Address [facility] [place] [address] Care Team Providers Care Retail Support Associate Name Role Phone Daryn Garrett MD Primary Care Provider Reason for Visit * Reason Onset Date Comments Medication Refill 09/12/2020 Encounter Details Date Type Department Care Team (Late st Contact Info) Description 09/12/2020 Refill [address] Medicine at [facility] [address] [place] [address] Camilla Carrera MD [facility] [place] [address] Social History Tobacco Use Types Packs/Day Years [...] 05/01/2024 11:20 AM EDT Appointment Mammography/[place] [address] Rodney Padilla MD [address] [address] 05/01/2024 1:45 PM EDT [place] [address] Juanpablo Hernandez MD [facility] [place] [address] 05/23/2024 2:45 PM EST Clinical Support Family Medicine at [facility] [address] [place] [address] Julia Low [facility] 01/30/2025 1:30 PM EDT Laboratory Appointment Lab at [facility] Hematology Oncology [address] [place] [address] 01/30/2025 3:[address] [place] [address] Arturo Cordero MD [facility] [place]ATOLOG[place] [address] 01/30/2025 4:15 PM EDT Office Visit [place]ology [place] [phone] Arturo Cordero MD [facility] [place]AT[place] [address] documented as of this encounter Visit Diagnoses Not on filedocumented in this encounter Care Teams Retail Support Associate Relationship Specialty Start Date End Date Daryn Garrett MD [facility] [address] [place] [address] PCP - General 04/10/24 documented as of this encounter
--- OUTSIDE RECORDS SUMMARY | 2024-04-13 15:49 | XMS_ITS | Encounter Summary ---
Author [facility] [place] [address] Care Team Providers Care Food Chemist Name Role Phone Luis E Narayan MD Primary Care Provider [phone] Encounter Details Date Type Department Care Team (Late Contact Info) Description 08/07/2020 Telephone [place] [address] Malika Ye Social History Tobacco Use Types [...] 05/01/2024 11:20 AM EDT Appointment Mammography/[place] [address] Rodney Padilla MD [address] [place] [address] 05/01/2024 1:45 PM EDT Office [place] [address] Juanpablo Hernandez MD [facility] [place] [address] 05/23/2024 2:45 PM EST Clinical Support Family Medicine at [facility] [address] [place] [address] Julia Low [facility] 01/30/2025 1:30 PM EDT Laboratory Appointment Lab at [facility] Hematology Oncology [address] [place] [address] 01/30/2025 3:[address] [place] [address] Arturo Cordero MD [facility] DR [place] [address] 01/30/2025 4:15 PM EDT Office Visit Hematology [place] [address] Arturo Cordero MD [facility] DR [place] [address] documented as of this encounter Visit Diagnoses Not on filedocumented in this encounter Care Teams Food Chemist Relationship Specialty Start Date End Date Luis E Narayan MD [facility] DR [address] [place] [address] PCP - General Family Medicine 03/26/19 01/19/22 documented as of this encounter
--- OUTSIDE RECORDS SUMMARY | 2024-04-13 15:49 | XMS_ITS | Encounter Summary ---
Author Organization [facility] Address [facility] [place] [address] Care Team Providers Care Beveller Operator Name Role Phone Luis E Narayan MD Primary Care Provider [phone] Reason for Visit * Reason Onset Date Comments Other 08/21/2020 Encounter Details Date Type Department Care Team (Late st Contact Info) Description 08/21/2020 Telephone Family Medicine at [facility] [address] [place] [address] Deana Akers Other Social History Tobacco Use [...] regarding copies of test results. Patient states [facility] staff is faxing over these results to the office today . FYI. Ask caller their first and last name and relationship to the patient: self Best time to call back: anytime Ok to leave a message: y Ok to send [facility] message: n Offered Appointment: n MA/Nurse/Chip Bin Conveyor Tender contacted via: Message: y Call: n Pager: n documented in this encounter Plan of Treatment Upcoming Encounters Date Type Department Care Team (Late st Contact Info) Description 05/01/2024 11:20 AM EDT Appointment Mammography/[place] [address] Rodney Padilla MD [address] [place] [address] 05/01/2024 1:45 PM EDT Office [place] [address] Juanpablo Hernandez MD [facility] [place] [address] 05/23/2024 2:45 PM EST Clinical Support Family Medicine at [facility] [address] [place] [address] Julia Low, [facility] 01/30/2025 1:30 PM EDT Laboratory Appointment Lab at [facility] Hematology Oncology [address] [place] [address] 01/30/2025 3:[address] [place] [address] Arturo Cordero MD [facility] [place] [address] 01/30/2025 4:15 PM EDT Office Visit Hematology [place] [address] Arturo Cordero MD [facility] [place] [address] documented as of this encounter Visit Diagnoses Not on filedocumented in this encounter Care Teams Beveller Operator Relationship Specialty Start Date End Date Luis E Narayan MD [facility] [address] [place] [address] PCP - General Family Medicine 03/26/19 01/19/22 documented as of this encounter
--- OUTSIDE RECORDS SUMMARY | 2024-04-13 15:49 | XMS_ITS | Encounter Summary ---
Author Organization [facility] [place] [address] Care Team Providers Care Milieu Coordinator Name Role Phone Luis E Narayan MD Primary Care Provider Encounter Details Date Type Department Care Team (Late st Contact Info) Description 09/11/2020 Telephone Family Medicine at [facility] [address] [place] [address] Shannon Ward, RN Social History Tobacco Use [...] 05/01/2024 11:20 AM EDT Appointment Mammography/[place] [address] Rodney Padilla MD [address] [facility] [place] [place] [address] 05/01/2024 1:45 PM EDT Office [place] [phone] Juanpablo Hernandez MD [facility] DR OPHTHALMOLOGY [place], [place] [address] 05/23/2024 2:45 PM EST Clinical Support Family Medicine at [facility] [address] [place] [address] Julia Low RPH 01/30/2025 1:30 PM EDT Laboratory Appointment Lab at [facility] Hematology Oncology [address] [place] [address] 01/30/2025 3:[address] [place] [address] Arturo Cordero MD [facility] DR [place] [address] 01/30/2025 4:15 PM EDT Office Visit Hematology [place] [address] Arturo Cordero MD [facility] DR [place] [address] documented as of this encounter Visit Diagnoses Not on filedocumented in this encounter Care Teams Milieu Coordinator Relationship Specialty Start Date End Date Luis E Narayan MD [facility] [address] [place] [address] PCP - General Family Medicine 03/26/19 01/19/22 documented as of this encounter
--- OUTSIDE RECORDS SUMMARY | 2024-04-13 15:49 | XMS_ITS | Encounter Summary ---
Author Organization Formerly [facility], Later [facility] [place] [address] Care Team Providers Care Pickers Material Handlers Name Role Phone Luis E Narayan MD Primary Care Provider [phone] Reason for Referral * Diagnostic Test (Routine) - Closed Specialty Diagnoses / Procedures Referred By Contac t Referred To Contact Radiology Diagnoses Malignant melanoma of conjunctiva, left Procedures CT Neck Soft Tissue w Contrast (Generic) Arturo Cordero MD [facility] DR HEMATOLOGY [place] [address] [facility] [place] [address] Referral ID Status Reason Start Date Expiration Date V isits Requested Visits Authorized [id number] Closed Specialty Service Requested 09/15/2020 03/18/2022 1 1 * Diagnostic Test (Routine) - Closed Specialty Diagnoses / Procedures Referred By Contac t Referred To Contact Radiology Diagnoses Malignant melanoma of conjunctiva, left Procedures CT Chest Abdomen Pelvis w Contrast (Generic) Arturo Cordero MD [facility] DR HEMATOLOGY [place] [address] [facility] [place] [address] Referral ID Status Reason Start Date Expiration Date V isits Requested Visits Authorized [id number] Closed Specialty Service Requested 09/15/2020 03/18/2022 1 1 Reason for Visit * Reason Comments Follow-up Encounter Details Date Type Department Care Team (Late st Contact Info) Description 09/15/2020 11:30 AM EST Office Visit Hematology [place] [address] Arturo Cordero MD [facility] DR HEMATOLOGY [place] [address] Leandra Lopes APRN [facility] HEMATOLOGY [place] [address] Malignant melanoma of conjunctiva, left Social History [...] management - fall 2018: saw a new welding instructor and was referred to Dr. 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 Medina - 03/31/2020: saw her welding instructor Dr. 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 - 05/14/2020: Underwent excision of the limbal lesion which was positive for melanoma Referred to melanoma clinic on 05/26/2020 to discuss treatment/follow-up options - 06/12/2020: CT Neck/Chest/Abd/Pelvis and MRI brain without evidence of distant metastases Mitomycin-C eyedrop total 3 weeks/every other week will complete on 09/18/2020 HPI: Alize rGamajo is a 59 y.o. female with past [...] uses inhalerswith good effect ??? Atherosclerosis of chemehuevi coronary artery of chemehuevi heart with angina pectoris 10/09/2007 History of [...] performed by Juanpablo Hernandez MD at [facility] ??? PRO EXCIS CORNEA LESN Left 05/14/2020 EXCISION OF LESION, CORNEA, EXCEPT PTERYGIUM (WRVU 7.5) performed by Juanpablo Hernandez MD at [facility] ??? PRO LAP, PARTIAL NEPHRECTOMY Left 06/28/2019 LAPAROSCOPY, PARTIAL NEPHRECTOMY, ROBOTIC ASSIST (WRVU 27.41) performed by Avila Medina MD at [facility] MAIN OR ??? PRO PLACE AMNIOTIC MEMBRANE OCULAR SURFACE;SINGLE LAYER SUTURED Left 05/14/2020 PLACEMENT OF AMNIOTIC MEMBRANE ON THE OCULAR SURFACE,SINGLE LAYER,SUTURED (WRVU 2.5) performed by Juanpablo Hernandez MD at 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 [...] AM EDT Appointment Mammography/[place] [address] Rodney Padilla MD [address] [facility] [place] [address] 05/01/2024 1:45 PM EDT Office [place] [address] Juanpablo Hernandez MD [facility] DR [place] [address] 05/23/2024 2:45 PM EST Clinical Support Family Medicine at [facility] [address] [place] [address] Julia Low, [facility] 01/30/2025 1:30 PM EDT Laboratory Appointment Lab at [facility] Hematology Oncology [address] [place] [address] 01/30/2025 3:[address] [place] [address] Arturo Cordero MD [facility] [address] HEMATOLOGY [place] [address] 01/30/2025 4:15 PM EDT Office Visit Hematology [place] [address] Arturo Cordero MD [facility] [address] HEMATOLOGY [place] [address] documented as of this encounter Results * [...] ? Electronically signed by: Clarisa Rajput MD, [facility] ([phone]), at 12/18/2020 9:41 AM Narrative 12/18/2020 9:41 [...] within the partially visualized orbits. Procedure Note Atiya, Sword C, MD - 12/18/2020 EXAMINATION: CT NECK SOFT [...] compliance auditor that requested your imaging first. Electronically signed by: Clarisa Rajput MD, [facility]([phone]), at 12/18/2020 9:41 AM Arturo Cordero MD [...] ? Electronically signed by: Juanpablo Chris MD, [facility] ([phone]), at 12/17/2020 4:53 PM Narrative 12/17/2020 4:53 [...] compliance auditor that requested your imaging first. Arturo Cordero MD IMG CT ORDERABLES * Lactate Dehydrogenase (12/17/2020 12:45 PM EDT) Lactate Dehydrogenase 205 110 - 220 unit/L [facility] Blood 12/17/2020 12:4 5 PM EDT 12/17/2020 12:51 PM EDT Narrative Resulting Agency Comment Spec In Lab Arturo Cordero MD CHEMISTRY ORDERABLES [facility] [place] [address] * (ABNORMAL) Comprehensive metabolic panel (non-fasting) (12/17/2020 [...] CHEMISTRY ORDERABLES [facility] [place] [address] documented in this encounter Visit Diagnoses Diagnosis Malignant melanoma of conjunctiva, left Malignant melanoma of conjunctiva, left documented in this encounter Care Teams Pickers Material Handlers Relationship Specialty Start Date End Date Luis E Narayan MD [facility] [address]-[place] [address] PCP - General Family Medicine 03/26/19 01/19/22 documented as of this encounter
--- OUTSIDE RECORDS SUMMARY | 2024-04-13 15:49 | XMS_ITS | Encounter Summary ---
[place] [address] Care Team Providers Care Tieing Machine Operator Name Role Phone Luis E Narayan MD Primary Care Provider [phone] Reason for Visit * Reason Onset Date Comments Medication Refill 07/26/2020 Encounter Details Date Type Department Care Team (Late st Contact Info) Description 07/26/2020 Refill Family Medicine at [facility] [address] [place] [address] Luis E Narayan MD [facility] [place] [address] Type 2 diabetes mellitus without long-term current [...] 05/01/2024 11:20 AM EDT Appointment Mammography/[place] [address] Rodney Padilla MD [address] [place] [address] 05/01/2024 1:45 PM EDT Office [place] [address] Juanpablo Hernandez MD [facility] [place] [address] 05/23/2024 2:45 PM EST Clinical Support Family Medicine at [facility] [address] [place] [address] uJlia Low, [facility] 01/30/2025 1:30 PM EDT Laboratory Appointment Lab at [facility] [place]ematology Oncology [address] [place] [address] 01/30/2025 3:[address] [place] [place] [address] Arturo Cordero MD [facility] [place] [address] 01/30/2025 4:15 PM EDT Office Visit [place]ology [place] [address] Arturo Cordero MD [facility] [place] [address] documented as of this encounter Visit Diagnoses Diagnosis Type 2 diabetes mellitus without long-term current use of insulin documented in this encounter Care Teams Tieing Machine Operator Relationship Specialty Start Date End Date Luis E Narayan MD [facility] [address] [place] [address] PCP - General Family Medicine 03/26/19 01/19/22 documented as of this encounter
--- OUTSIDE RECORDS SUMMARY | 2024-04-13 15:49 | XMS_ITS | Encounter Summary ---
[place] [address] Care Team Providers Care Meat Curer Name Role Phone Luis E Narayan MD Primary Care Provider Reason for Visit * Reason Comments Melanoma Encounter Details Date Type Department Care Team (Late st Contact Info) Description 08/28/2020 2:30 PM EST Office [place] [address] Juanpablo Hernandez MD [facility] [place] [address] Malignant melanoma of conjunctiva, left Social History [...] 05/01/2024 11:20 AM EDT Appointment Mammography/[place] [address] Rodney aPdilla MD [address] [place] [address] 05/01/2024 1:45 PM EDT Office [place] [address] Juanpablo Hernandez MD [facility] [place] [address] 05/23/2024 2:45 PM EST Clinical Support Family Medicine at [facility] [address] [place] [phone] Julia Low [facility] 01/30/2025 1:30 PM EDT Laboratory Appointment Lab at [facility] Hematology Oncology [address] [place] [address] 01/30/2025 3:[address] [place] [address] Arturo Cordero MD [facility] DR [place] [address] 01/30/2025 4:15 PM EDT Office Visit Hematology [place] [address] Arturo Cordero MD [facility] DR [place] [address] documented as of this encounter Visit Diagnoses Diagnosis Malignant melanoma of conjunctiva, left documented in this encounter Care Teams Meat Curer Relationship Specialty Start Date End Date Luis E Narayan MD [facility] [address] [place] [address] PCP - General Family Medicine 03/26/19 01/19/22 documented as of this encounter
--- OUTSIDE RECORDS SUMMARY | 2024-04-13 15:49 | XMS_ITS | Encounter Summary ---
Author Organization [facility] [place] [address] Care Team Providers Care Veterinary Manager Name Role Phone Luis E Narayan MD Primary Care Provider Encounter Details Date Type Department Care Team (Late st Contact Info) Description 06/18/2020 Orders Only Family Medicine at [facility] [address] [place] [address] Luis E Narayan MD [facility] [place] [address] Social History Tobacco Use Types Packs/Day Years [...] 05/01/2024 11:20 AM EDT Appointment Mammography/[place] [address] Rodney Padilla MD [address] [place] [address] 05/01/2024 1:45 PM EDT Office [place] [address] Juanpablo Hernandez MD [facility] [address] 05/23/2024 2:45 PM EST Clinical Support Family Medicine at [facility] [address] [place] [address] Julia Low, [facility] 01/30/2025 1:30 PM EDT Laboratory Appointment Lab at [facility] Hematology Oncology [address] [place] [address] 01/30/2025 3:[address] [place] [address] Arturo Cordero MD [facility] DR [place] [address] 01/30/2025 4:15 PM EDT Office Visit Hematology [place] [address] Arturo Cordero MD [facility] DR [place] [address] documented as of this encounter Visit Diagnoses Not on filedocumented in this encounter Care Teams Veterinary Manager Relationship Specialty Start Date End Date Luis E Narayan MD [facility] [address] [place] [address] PCP - General Family Medicine 03/26/19 01/19/22 documented as of this encounter
--- OUTSIDE RECORDS SUMMARY | 2024-04-13 15:49 | XMS_ITS | Encounter Summary ---
Author Organization [facility] [place] [address] Care Team Providers Care Freight Engineer Name Role Phone Luis E Narayan MD Primary Care Provider Reason for Visit * Reason Comments Medication Refill Encounter Details Date Type Department Care Team (Late st Contact Info) Description 08/02/2020 Refill Family Medicine at [facility] [address] [place] [address] Luis E Narayan MD [facility] [place] [address] Social History Tobacco Use Types Packs/Day Years [...] 05/01/2024 11:20 AM EDT Appointment Mammography/[place] [address] Rodney Padilla MD [address] [place] [address] 05/01/2024 1:45 PM EDT Office [place] [address] Juanpablo Hernandez MD [facility] [place] [address] 05/23/2024 2:45 PM [facility] Clinical Support Family Medicine at [facility] [address] [place] [address] Julia Low, [facility] 01/30/2025 1:30 PM EDT Laboratory Appointment Lab at [facility] Hematology Oncology [address] [place] [address] 01/30/2025 3:[address] [place] [address] Arturo Cordero MD [facility] DR HEMATOLOGY [place] [address] 01/30/2025 4:15 PM EDT Office Visit Hematology [place] [address] Arturo Cordero MD [facility] DR HEMATOLOGY [place] [address] documented as of this encounter Visit Diagnoses Not on filedocumented in this encounter Care Teams Freight Engineer Relationship Specialty Start Date End Date Luis E Narayan MD [facility] [address] [address] PCP - General Family Medicine 03/26/19 01/19/22 documented as of this encounter
--- OUTSIDE RECORDS SUMMARY | 2024-04-13 15:50 | XMS_ITS | Encounter Summary ---
[place] [address] Care Team Providers Care Community Relations Advisor Name Role Phone Luis E Narayan MD Primary Care Provider [phone] Reason for Visit * Reason Onset Date Comments Medication Refill 04/19/2020 Encounter Details Date Type Department Care Team (Late st Contact Info) Description 04/19/2020 Refill Family Medicine at [facility] [address] [place] [address] Bonny Emanuel MD [address] [place] [address] Social History Tobacco Use Types Packs/Day Years [...] 05/01/2024 11:20 AM EDT Appointment Mammography[place] [address] Rodney Padilla MD [address] [place] [address] 05/01/2024 1:45 PM EDT Office [place] [address] Juanpablo Hernandez MD [facility] [place] [address] 05/23/2024 2:45 PM [facility] Clinical Support Family Medicine at [facility] [address] [place] [address] Julia Low, [facility] 01/30/2025 1:30 PM EDT Laboratory Appointment Lab at [facility] Hematology Oncology [address] [place] [address] 01/30/2025 3:[address] [place] [address] Arturo Cordero MD [facility] DR [place] [address] 01/30/2025 4:15 PM EDT Office Visit Hematology [place] [address] Arturo Cordero MD [facility] DR [place] [address] documented as of this encounter Visit Diagnoses Not on filedocumented in this encounter Care Teams Community Relations Advisor Relationship Specialty Start Date End Date Luis E Narayan MD [facility] [address] [place] [address] PCP - General Family Medicine 03/26/19 01/19/22 documented as of this encounter
--- OUTSIDE RECORDS SUMMARY | 2024-04-13 15:50 | XMS_ITS | Encounter Summary ---
Author Organization [facility] [place] [address] Care Team Providers Care Addiction Social Worker Name Role Phone Luis E Narayan MD Primary Care Provider [phone] Reason for Visit * Reason Onset Date Comments Appointment 03/27/2020 Encounter Details Date Type Department Care Team (Late st Contact Info) Description 03/27/2020 Telephone [place] [address] Juanpablo Hernandez MD [facility] [place] [address] Appointment Social History Tobacco Use Types Packs/Day [...] 05/01/2024 11:20 AM EDT Appointment Mammography/[place] [address] Rodney Padilla MD [address] [place] [place] [address] 05/01/2024 1:45 PM EDT Office [place] [address] Juanpablo Hernandez MD [facility] [place] [place] [address] 05/23/2024 2:45 PM EST Clinical Support Family Medicine at [facility] [address] [place] [address] Julia Low, [facility] 01/30/2025 1:30 PM EDT Laboratory Appointment Lab at [facility] [place]ematology Oncology [address] [place] [address] 01/30/2025 3:[address] [place] [address] Arturo Cordero MD [facility] [place] [address] 01/30/2025 4:15 PM EDT Office Visit Hematology [place] [address] Arturo Cordero MD [facility] [place] [address] documented as of this encounter Visit Diagnoses Not on filedocumented in this encounter Care Teams Addiction Social Worker Relationship Specialty Start Date End Date Luis E Narayan MD [facility] [address] [place] [address] PCP - General Family Medicine 03/26/19 01/19/22 documented as of this encounter
--- OUTSIDE RECORDS SUMMARY | 2024-04-13 15:50 | XMS_ITS | Encounter Summary ---
[place] [address] Care Team Providers Care Compliance Aide Name Role Phone Luis E Narayan MD Primary Care Provider Encounter Details Date Type Department Care Team (Late st Contact Info) Description 04/08/2020 [place] [address] Arlene Puente Social History Tobacco Use Types [...] 05/01/2024 11:20 AM EDT Appointment Mammography[place] [address] Rodney Padilla MD [address] [place] [address] 05/01/2024 1:45 PM EDT Office [place] [address] Juanpablo Hernandez MD [facility] [place] [address] 05/23/2024 2:45 PM EST Clinical Support Family Medicine at [facility] [address] [place] [address] Julia Low, [facility] 01/30/2025 1:30 PM EDT Laboratory Appointment Lab at [facility] Hematology Oncology [address] [place] [id number] 01/30/2025 3:[address] [place] [place] [address] Arturo Cordero MD [facility] DR [place] [address] 01/30/2025 4:15 PM EDT Office Visit [place]ematology [place] [address] Arturo Cordero MD [facility] DR HEMATOLOGY AND ONCOLOGY [place], [place] [address] documented as of this encounter Visit Diagnoses Not on filedocumented in this encounter Care Teams Compliance Aide Relationship Specialty Start Date End Date Luis E Narayan MD [facility] [address] [place] [address] PCP - General Family Medicine 03/26/19 01/19/22 documented as of this encounter
--- OUTSIDE RECORDS SUMMARY | 2024-04-13 15:50 | XMS_ITS | Encounter Summary ---
Author Organization [facility] [place] [address] Care Team Providers Care Cardiovascular Surgeon Name Role Phone Luis E Narayan MD Primary Care Provider Reason for Visit * Reason Onset Date Comments Triage 01/13/2020 Encounter Details Date Type Department Care Team (Late st Contact Info) Description 01/13/2020 Telephone Family Medicine at [facility] [address] [place] [address] Jeff Miller Triage Social History Tobacco Use [...] requesting return call to clinic. Will send [facility] message advising thesame. * Telephone Encounter - Holly Boucher RN - 01/13/2020 3:05 PM EDT Attempted to return call to patient. No answer; call went to unidentified VM. Left generic message requesting return call to clinic at [phone]. * Telephone Encounter - Milo Griffin MD - 01/13/2020 2:57 PM EDT How urgent is pt feeling on rx? Could wait until Sylvain visit vs I can refer to [facility] for possibly prompter eval given bipolar history Milo Griffin MD [facility] * Telephone Encounter - Alejandra Posadas [...] but she knows she can't do that fdc Pertinent History: FERCHO 08/05. Next 01/30. Hx [...] leave a message: yes Ok to send [facility] message: no Offered Appointment: yes, Patient requested next available with pcp. MA/Nurse/Manager Clinical contacted via: Message: yes Call: no Pager: no documented in this encounter Plan of Treatment Upcoming Encounters Date Type Department Care Team (Late st Contact Info) Description 05/01/2024 11:20 AM EDT Appointment Mammography/[place] [address] Rodney Padilla MD [address] [place] [address] 05/01/2024 1:45 PM EDT Office [place] [address] Juanpablo Hernandez MD [facility] [place] [address] 05/23/2024 2:45 PM EST Clinical Support Family Medicine at [facility] [address] [place] [address] Julia Low [facility] 01/30/2025 1:30 PM EDT Laboratory Appointment Lab at [facility] Hematology Oncology [address] [place] [address] 01/30/2025 3:[address] [place] [address] Arturo Cordero MD [facility] DR [place] [address] 01/30/2025 4:15 PM EDT Office Visit Hematology [place] [address] Arturo Cordero MD [facility] DR [place] [address] documented as of this encounter Visit Diagnoses Not on filedocumented in this encounter Care Teams Cardiovascular Surgeon Relationship Specialty Start Date End Date Luis E Narayan MD [facility] [address] [place] [address] PCP - General Family Medicine 03/26/19 01/19/22 documented as of this encounter
--- OUTSIDE RECORDS SUMMARY | 2024-04-13 15:50 | XMS_ITS | Encounter Summary ---
Author Organization [facility] [place] [address] Care Team Providers Care X Ray Inspector Name Role Phone Luis E Narayan MD Primary Care Provider Reason for Referral * Diagnostic Test (Routine) - Closed Specialty Diagnoses / Procedures Referred By Gonzalez t Referred To Contact Radiology Diagnoses Renal cancer, left Procedures CT Abdomen wwo Contrast Avila Medina MD [facility] [place] [address] [facility] [place] [address] Referral ID Status Reason Start Date Expiration Date V isits Requested Visits Authorized [id number] Closed Specialty Service Requested 12/30/2019 06/27/2020 1 1 Reason for Visit * Diagnostic Test (Routine) - Closed Specialty Diagnoses / Procedures Referred By Gonzalez kumari Referred To Contact Radiology Diagnoses Renal cancer, left Procedures CT Abdomen wwo Contrast Avila Medina MD [facility] [place] [address] [facility] [place] [address] Referral ID Status Reason Start Date Expiration Date V isits Requested Visits Authorized [id number] Closed Specialty Service Requested 12/30/2019 06/27/2020 1 1 Encounter Details Date Type Department Care Team (Latest Contact Info) Description 01/13/2020 10:45 AM EDT - 01/13/2020 11:59 PM EDT Hospital Encounter CT Scan at [facility] [place] [address] Avila Medina MD [facility] [place] [address] Renal cancer, left Discharge Disposition: Home Social [...] 08/05/2019 06/14/2021 fluticasone propionate (FLONASE) 50 mcg/actuation [place], Suspension 1 spray by Each Nare route [...] EDT Appointment Mammography/[place] [address] Rodney Padilla MD [address] [facility] [place], [place] [id number] 05/01/2024 1:45 PM EDT Office [place] [address] Juanpablo Hernandez MD [facility] [place] [address] 05/23/2024 2:45 PM EST Clinical Support Family Medicine at [facility] [address] [place] [address] Devante Julia K, [facility] 01/30/2025 1:30 PM EDT Laboratory Appointment Lab at [facility] Hematology Oncology [address] [place] [address] 01/30/2025 3:[address] [place] [address] Arturo Cordero MD [facility] HEMATOLOGY [place] [address] 01/30/2025 4:15 PM EDT Office Visit Hematology [place] [address] Arturo Cordero MD [facility] HEMATOLOGY [place] [address] documented as of this encounter Procedures Procedure [...] the number below. Avila Medina MD IMG CT ORDERABLES documented in this [...] mLs documented in this encounter Care Teams X Ray Inspector Relationship Specialty Start Date End Date Luis E Narayan MD [facility] [place] [address] PCP - General Family Medicine 03/26/19 01/19/22 documented as of this encounter
--- OUTSIDE RECORDS SUMMARY | 2024-04-13 15:50 | XMS_ITS | Encounter Summary ---
Author Organization [facility] [place] [address] Care Team Providers Care Porcelain Enameling Supervisor Name Role Phone Luis E Narayan MD Primary Care Provider [phone]- [phone] Encounter Details Date Type Department Care Team (Late st Contact Info) Description 05/11/2020 Telephone Family Medicine at [facility] [address] [place] [address] Thania Flores RN Social History Tobacco Use [...] 05/01/2024 11:20 AM EDT Appointment Mammography/[place] [address] Rodney Padilla MD [address] [place] [address] 05/01/2024 1:45 PM EDT Office [place] [address] Juanpablo Hernandez MD [facility] [place] [address] 05/23/2024 2:45 PM EST Clinical Support Family Medicine at [facility] [address] [place] [address] Julia Low [facility] 01/30/2025 1:30 PM EDT Laboratory Appointment Lab at [facility] Hematology Oncology [address] [place] [address] 01/30/2025 3:[address] [place] [address] Arturo Cordero MD [facility] DR HEMATOLOGY [place] [address] 01/30/2025 4:15 PM EDT Office Visit Hematology [place] [address] Arturo Cordero MD [facility] DR HEMATOLOGY [place] [address] documented as of this encounter Visit Diagnoses Not on filedocumented in this encounter Care Teams Porcelain Enameling Supervisor Relationship Specialty Start Date End Date Luis E Narayan MD [facility] [address] [place] [address] PCP - General Family Medicine 03/26/19 01/19/22 documented as of this encounter
--- OUTSIDE RECORDS SUMMARY | 2024-04-13 15:50 | XMS_ITS | Encounter Summary ---
Author Organization [facility] [place] [address] Care Team Providers Care Sewing Department Supervisor Name Role Phone Luis E Narayan MD Primary Care Provider Reason for Referral * Consultation (Routine) - Closed Specialty Diagnoses / Procedures Referred By Gonzalez kumari Referred To Contact Primary Care Diagnoses Bipolar affective disorder in remission Recurrent major depressive disorder, in remission Luis E Narayan MD [facility] [place] [address] [facility] Medicine [address] [place] [address] Referral ID Status Reason Start Date Expiration Date V isits Requested Visits Authorized [id number] Closed Specialty Service Requested 01/31/2020 01/30/2021 1 1 Reason for Visit * Reason Comments Follow-up here for a follow up re. blood tests Encounter Details Date Type Department Care Team (Late Contact Info) Description 01/31/2020 3:00 PM EDT Office Visit Family Medicine at [facility] [address] [place] [address] Luis E Narayan MD [facility] [place] [address] Bipolar affective disorder in remission; [...] causing significant difficulty with ADLs. 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 Still has neuropsych/cognitive testing Mood [...] quant; Future; Expected date: 01/31/2020 - DEANNA ([facility]); Future; Expected date: 01/31/2020 - CRP, acute inflammation; Future; Expected date: 01/31/2020 Diabetes - controlled, cont metformin 1000mg bid documented in this encounter Plan of Treatment Upcoming Encounters Date Type Department Care Team (Late st Contact Info) Description 05/01/2024 11:20 AM EDT Appointment Mammography/[place] [address] Rodney Padilla MD [address] [place] [address] 05/01/2024 1:45 PM EDT Office [place] [address] Juanpablo Hernandez MD [facility] [place] [address] 05/23/2024 2:45 PM EST Clinical Support Family Medicine at [facility] [address] [place] [phone] Julia Low [facility] 01/30/2025 1:30 PM EDT Laboratory Appointment Lab at [facility] Hematology Oncology [address] [place] [address] 01/30/2025 3:[address] [place] [address] Arturo Cordero MD [facility] [place] [address] 01/30/2025 4:15 PM EDT Office Visit Hematology [place] [address] Arturo Cordero MD [facility] [place] [address] Scheduled Referrals Name Type Priority Associated Diagnoses [...] CRP, acute inflammation (01/31/2020 4:07 PM EDT) Pathologist [facility] C-Reactive Protein 6.0(H) <=4.9 mg/L [facility] Blood specimen (specimen) 01/31/2020 4:07 PM EDT 01/31/2020 7:06 PM EDT Narrative Resulting Agency Comment Spec In Lab Luis E Narayan MD CHEMISTRY ORDERABLE S Performing Organization Address City/[facility]/ZIP Co de Phone Number [facility] [place] [address] * DEANNA ([facility]) (01/31/2020 4:07 PM EDT) Pathologist [facility] DEANNA Neg Neg [facility] Comment:Anti-nuclear antibod ies were tested using an indirect immunofluorescent assay. Blood specimen (specimen) 01/31/2020 4:07 PM EDT 02/03/2020 7:29 AM EDT Narrative Resulting Agency Comment Spec In Lab Luis E Narayan MD LAB SEND OUT ORDERA BLES Performing Organization Address [facility]/ZIP Co de Phone Number [facility] [place] [address] * Rheumatoid factor, quant (01/31/2020 4:07 PM EDT) [facility] Rheumatoid Factor <10 <=14 IU/mL [facility] Blood specimen (specimen) 01/31/2020 4:07 PM EDT 01/31/2020 7:06 PM EDT Narrative Resulting Agency Comment Spec In Lab Luis E Narayan MD CHEMISTRY ORDERABLE S Performing Organization Address City/[facility]/ZIP Co de Phone Number [facility] [place] [address] documented in this encounter Visit Diagnoses Diagnosis Bipolar affective disorder in remission Recurrent major depressive disorder, in remission Arthralgia, unspecified joint documented in this encounter Care Teams Sewing Department Supervisor Relationship Specialty Start Date End Date Luis E Narayan MD [facility] [address] [place] [address] PCP - General Family Medicine 03/26/19 01/19/22 documented as of this encounter
--- OUTSIDE RECORDS SUMMARY | 2024-04-13 15:50 | XMS_ITS | Encounter Summary ---
Author Organization [facility] Address [facility] [place] [address] Care Team Providers Care Patient Access Name Role Phone Luis E Narayan MD Primary Care Provider [phone]- [phone] Reason for Visit * Reason Onset Date Comments Request For Record 02/28/2020 [facility] Encounter Details Date Type Department Care Team (Late Contact Info) Description 02/28/2020 Telephone Internal Medicine at [facility] [address] [place] [address] Denisse Hunter CCMA Request For Record ([facility]) Social History Tobacco Use Types Packs/Day Years [...] 05/01/2024 11:20 AM EDT Appointment Mammography/[place] [address] Rodney Padilla MD [address] [place] [address] 05/01/2024 1:45 PM EDT Office [place] [address] Juanpablo Hernandez MD [facility] [place] [address] 05/23/2024 2:45 PM EST Clinical Support Family Medicine at [facility] [address] [place] [address] Julia Low, [facility] 01/30/2025 1:30 PM EDT Laboratory Appointment Lab at [facility] Hematology Oncology [address] [place] [address] 01/30/2025 3:[address] [place] [address] Arturo Cordero MD [facility] DR HEMATOLOGY [place] [address] 01/30/2025 4:15 PM EDT Office Visit [place]ematology [place] [address] Arturo Cordero MD [facility] DR HEMATOLOGY [place] [address] documented as of this encounter Visit Diagnoses Not on filedocumented in this encounter Care Teams Patient Access Relationship Specialty Start Date End Date Luis E Narayan MD [facility] DR [address] [place] [address] PCP - General Family Medicine 03/26/19 01/19/22 documented as of this encounter
--- OUTSIDE RECORDS SUMMARY | 2024-04-13 15:50 | XMS_ITS | Encounter Summary ---
[place] [address] Care Team Providers Care Funeral Assistant Name Role Phone Luis E Narayan MD Primary Care Provider [phone] Reason for Visit * Reason Onset Date Comments Post Op Post Op 05/15/2020 Encounter Details Date Type Department Care Team (Late st Contact Info) Description 05/15/2020 1:30 PM EST Office Visit [place] [address] Juanpablo Hernandez MD [facility] [place] [address] Conjunctival tumor Social History Tobacco Use Types [...] Instruction following eye surgery Section of Ophthalmology [facility] 1) AVOID EYE INJURIES: Following eye surgery [...] DECREASING VISION: There is always a doctor production drilling machine operator at the eye clinic if you develop [...] 05/01/2024 11:20 AM EDT Appointment Mammography/[place] [address] Rodney Padilla MD [address] [place] [address] 05/01/2024 1:45 PM EDT Office [place] [address] Juanpablo Hernandez MD [facility] [place] [address] 05/23/2024 2:45 PM EST Clinical Support Family Medicine at [facility] [address] [place] [address] Julia Low, [facility] 01/30/2025 1:30 PM EDT Laboratory Appointment Lab at [facility] Hematology Oncology [address] [place] [address] 01/30/2025 3:[address] [place] [address] Arturo Cordero MD [facility] DR HEMATOLOGY AND ONCOLOGY [place], [place] [address] 01/30/2025 4:15 PM EDT Office Visit Hematology [place] [address] Arturo Cordero MD [facility] DR HEMATOLOGY AND ONCOLOGY [place], [place] [address] documented as of this encounter Visit Diagnoses Diagnosis Conjunctival tumor Neoplasms of unspecified nature, other specified sites documented in this encounter Care Teams Funeral Assistant Relationship Specialty Start Date End Date Luis E Narayan MD [facility] [address] [place] [address] PCP - General Family Medicine 03/26/19 01/19/22 documented as of this encounter
--- OUTSIDE RECORDS SUMMARY | 2024-04-13 15:50 | XMS_ITS | Encounter Summary ---
Author Organization [facility] Address [facility] [place] [address] Care Team Providers Care Hand Inspector Name Role Phone Luis E Narayan MD Primary Care Provider [phone] Reason for Visit * Reason Onset Date Comments Medication Refill 06/11/2020 Encounter Details Date Type Department Care Team (Late st Contact Info) Description 06/11/2020 [place] [address] Juanpablo Hernandez MD [facility] [place] [address] Conjunctival tumor Social History Tobacco Use Types [...] 05/01/2024 11:20 AM EDT Appointment Mammography[place] [address] Rodney Padilla MD [address] [place] [address] 05/01/2024 1:45 PM EDT Office [place] [address] Juanpablo Hernandez MD [facility] [address] 05/23/2024 2:45 PM EST Clinical Support Family Medicine at [facility] [address] [place] [address] Julia Low, [facility] 01/30/2025 1:30 PM EDT Laboratory Appointment Lab at [facility] Hematology Oncology [address] [place] [address] 01/30/2025 3:[address] [place] [address] Arturo Cordero MD [facility] DR HEMATOLOGY [place] [address] 01/30/2025 4:15 PM EDT Office Visit Hematology [place] [address] Arturo Cordero MD [facility] DR HEMATOLOGY [place] [address] documented as of this encounter Visit Diagnoses Diagnosis Conjunctival tumor Neoplasms of unspecified nature, other specified sites documented in this encounter Care Teams Hand Inspector Relationship Specialty Start Date End Date Luis E Narayan MD [facility] DR [address] [address] PCP - General Family Medicine 03/26/19 01/19/22 documented as of this encounter
--- OUTSIDE RECORDS SUMMARY | 2024-04-13 15:50 | XMS_ITS | Encounter Summary ---
Author Organization [facility] [place] [address] Care Team Providers Care Clinical Molecular Geneticist Name Role Phone Luis E Narayan MD Primary Care Provider Reason for Visit * Auth/Cert Specialty Diagnoses / Procedures Referred By Gonzalez kumari Referred To Contact Diagnoses Pigmented large conjunctival lesion Procedures PRO EXCIS CORNEA LESN EXCISION OF LESION, CORNEA, EXCEPT PTERYGIUM (WRVU 7.5) Referral ID Status Reason Start Date Expiration Date Visits Re quested Visits Authorized [id number] 1 1 Encounter Details Date Type Department Care Team (Late st Contact Info) Description 05/14/2020 12:00 PM EST - 05/14/2020 12:55 PM EST Surgery [place] [address] Mert Hernandez MD [facility] [place] [address] EXCISION OF LESION, CORNEA, EXCEPT PTERYGIUM (WRVU [...] surgery Mert Hernandez MD Section of ophthalmology [facility] [phone] - Keep your eye patched, shielded, clean and dry overnight. The patch will be removed during your follow up visit with Dr. Hernandez tomorrow. - The surgery center nurses should confirm time of your follow up appointment for tomorrow with . This appointment will be at the Eye Clinic in the main building at [facility]. - Mild discomfort is normal, but if you have any severe eye pain or bleeding call [phone] and ask to speak to the eye doctor billing control clerk. - Call your Primary Care Doctor or [...] 08/05/2019 06/14/2021 fluticasone propionate (FLONASE) 50 mcg/actuation [place], Suspension 1 spray by Each Nare route [...] patient was questioned regarding travel outside of [place] states, fever, cough, SOB or other illness [...] again, temperature will be taken, patient and caregiver/racing car driver will be given a mask to wear the entire time they are in the [facility] building. * Grecia Lamb RN - 05/11/2020 9:20 AM EST During this call the patient was questioned regarding travel outside of [facility], fever, cough, SOB or other illness [...] again, temperature will be taken, patient and caregiver/racing car driver will be given a mask to wear [...] Hernandez MD - 05/14/2020 1:14 PM EST [facility] Operative Note Patient Name: Alize Gramajo : [id number] MR#: [id number] Case Date: 05/14/2020 Surgeon: Surgeon(s) and Role: [...] 2 mL Surgical Staff/Assistants: Mert Hernandez M.D. ([id number]) * Preoperative Diagnosis: Limbal conjunctival tumor, left [...] fresh instruments were obtained.The amniotic membrane donor [id number] from [employer] was applied to the scleral bed and [...] 05/01/2024 11:20 AM EDT Appointment Mammography/[place] [address] Rodney Padilla MD [address] [place] [address] 05/01/2024 1:45 PM EDT Office [place] [address] Mert Hernandez MD [facility] [place] [address] 05/23/2024 2:45 PM EST Clinical Support [facility] [address] [place] [phone] Julia Low [facility] 01/30/2025 1:30 PM EDT Laboratory Appointment Lab at [facility] Hematology Oncology [address] [place] [address] 01/30/2025 3:[address] [place] [phone] Arturo Cordero MD [facility] DR HEMATOLOGY [place] [address] 01/30/2025 4:15 PM EDT Office Visit Hematology [place] [address] Arturo Cordero MD [facility] DR HEMATOLOGY [place] [address] documented as of this encounter Procedures Procedure [...] Place Amniotic Membrane Ocular Surface;Single Layer Sutured ([id number]) 05/14/2020 12:04 PM EST Pigmented large conjunctival lesion Destr Corneal Lesn, Cryo, Photo, Therm ([id number]) 05/14/2020 12:04 PM EST Pigmented large conjunctival lesion Excis Cornea Lesn ([id number]) 05/14/2020 12:04 PM EST Pigmented large conjunctival lesion EXCISION OF LESION, CORNEA, EXCEPT PTERYGIUM Routine 05/14/2020 10:58 AM EST documented in this encounter Results * Specimen to Pathology (05/14/2020 12:47 PM EST) AP Specimen 05/14/2020 12:4 7 PM EST 05/14/2020 12:47 PM EST Narrative [facility] - 05/14/2020 12:47 PM EST Specimen requisition ordered. ??Separate Pathology report to follow Mert Hernandez MD PATHOLOGY/CYTOLOGY O RDLESLEY [facility] [place] [address] * Specimen to Pathology (05/14/2020 12:47 PM EST) AP Specimen 05/14/2020 12:4 7 PM EST 05/14/2020 12:47 PM EST Narrative [facility] - 05/14/2020 12:47 PM EST Specimen requisition ordered. ??Separate Pathology report to follow Mert Hernandez MD PATHOLOGY/CYTOLOGY O RDERABLES [facility] [place] [address] * Specimen to Pathology (05/14/2020 12:47 PM EST) AP Specimen 05/14/2020 12:4 7 PM EST 05/14/2020 12:47 PM EST Narrative [facility] - 05/14/2020 12:47 PM EST Specimen requisition ordered. ??Separate Pathology report to follow Mert Hernandez MD PATHOLOGY/CYTOLOGY O ULISES Performing Organization Address [facility] de Phone Number [facility] [place] [address] * Specimen to Pathology (05/14/2020 12:47 PM EST) AP Specimen 05/14/2020 12:4 7 PM EST 05/14/2020 12:47 PM EST Narrative [facility] - 05/14/2020 12:47 PM EST Specimen requisition ordered. ??Separate Pathology report to follow Mert Hernandez MD PATHOLOGY/CYTOLOGY O ULISES Performing Organization Address [facility] de Phone Number [facility] [place] [address] * Solid Tumor NGS Panel (05/14/2020 12:40 PM EST) Tissue specimen (specimen) 05/14/2020 12:40 PM EST 06/01/2020 11:57 AM EST Narrative Resulting Agency Comment Spec In Lab Mert Hernandez MD PATHOLOGY/CYTOLOGY O ULISES Performing Organization Address [facility] de Phone Number [facility] [place] [phone] * Surgical Pathology Report (05/14/2020 12:40 PM EST) Final Diagnosis [id number] ? Location: [facility] The signing pathologist has [...] ??melanoma Electronically signed by: ??Vladislav COLVIN, PhD, [place] Verified: ??05/20/2020 ?Dermatopathologist Performed at: ??-[facility] Dept. of Pathology, [place], [place] DISCUSSION A( Left eye, conjunctiva excision) [...] labeled D1. ??mayra 05/20/2020 3:13 PM EST [facility] SPECIMEN FROM SKIN / Unknown 05/14/2020 12:40 PM EST 05/14/2020 12:40 PM EST SPECIMEN FROM SKIN / Unknown 05/14/2020 12:40 PM EST 05/14/2020 12:40 PM EST SPECIMEN FROM SKIN / Unknown 05/14/2020 12:40 PM EST 05/14/2020 12:40 PM EST SPECIMEN FROM SKIN / Unknown 05/14/2020 12:40 PM EST 05/14/2020 12:40 PM EST Mert Hernandez MD PATHOLOGY/CYTOLOGY O ULISES Performing Organization Address City/State/[facility] Co de Phone Number [facility] [employer] [place] [phone] documented in this encounter Visit Diagnoses Not [...] (Ancef) injection ONCE PRN, Starting on Carolee 05/14/20 at 1308, Until Carolee 05/14/20 at 1534, Intra-Operative (Intra-Procedure), Routine Given 05/14/2020 1:08 PM EST 100 mg 19- Surgical Site dexamethasone (Decadron) injection ONCE PRN, Starting on Carolee 05/14/20 [...] MIN, 3 doses, First dose on Carolee 05/14/20 at 1115, Last dose on Carolee 05/14/20 [...] MIN, 3 doses, First dose on Carolee 05/14/20 at 1115, Last dose on Carolee 05/14/20 [...] on Carolee 11 at 1309, Until Carolee 11 at 1534, Intra-Operative (Intra-Procedure), Routine 1309 (Given - Provid er: Mert Hernandez MD) lidocaine-EPINEPHrine 2 %-1:200,000 injection (CANCELED) ONCE PRN, Starting on Carolee 05/14/20 at 1216, Until Carolee 11 at 1534, Intra-Operative (Intra-Procedure), Routine 1216 (Given - Provid er: Mert Hernandez MD - Comment: 0.75% Lidocaine plain mixed 1:1 with 2% Lidocaine with epi 1:200,000. 2 ml total mixture given at this time) documented in this encounter Care Teams Clinical Molecular Geneticist Relationship Specialty Start Date End Date Luis E Narayan MD [facility] [address] [place] [address] PCP - General Family Medicine 03/26/19 01/19/22 documented as of this encounter
--- OUTSIDE RECORDS SUMMARY | 2024-04-13 15:50 | XMS_ITS | Encounter Summary ---
Author Organization [facility] [place] [address] Care Team Providers Care Thread Grinder Name Role Phone Luis E Narayan MD Primary Care Provider Encounter Details Date Type Department Care Team (Late st Contact Info) Description 02/19/2020 Telephone Family Medicine at [facility] [address] [place] [phone] Sofia Lorenzo Social History Tobacco Use Types [...] PM EDT Sent a quick fax to [facility]. [facility] [phone] requesting records * Telephone Encounter - Medhat Garcia - 02/21/2020 1:41 PM EDT Pt states she use to go to [facility]. [facility] * Telephone Encounter - Sofia Lorenzo [...] can upload them to her chart through [facility] or if she knows the name of the provider so that records can be requested? Thanks -Rachel documented in this encounter Plan of Treatment Upcoming Encounters Date Type Department Care Team (Late st Contact Info) Description 05/01/2024 11:20 AM EDT Appointment Mammography/[place] [address] Rodney Padilla MD [address] [place] [address] 05/01/2024 1:45 PM EDT Office [place] [address] Juanpablo Hernandez MD [facility] [place] [address] 05/23/2024 2:45 PM EST Clinical Support Family Medicine at [place] [address] [place] [address] Julia Low, [facility] 01/30/2025 1:30 PM EDT Laboratory Appointment Lab at [facility] Hematology Oncology [address] [place] [address] 01/30/2025 3:[address] [place] [phone] Arturo Cordero MD [facility] [address] [place] [address] 01/30/2025 4:15 PM EDT Office Visit Hematology [place] [address] Arturo Cordero MD [facility] [address] [place] [address] documented as of this encounter Visit Diagnoses Not on filedocumented in this encounter Care Teams Thread Grinder Relationship Specialty Start Date End Date Luis E Narayan MD [facility] DR [address] [place] [address] PCP - General Family Medicine 03/26/19 01/19/22 documented as of this encounter
--- OUTSIDE RECORDS SUMMARY | 2024-04-13 15:50 | XMS_ITS | Encounter Summary ---
Author Organization [facility] Address [facility] [place] [address] Care Team Providers Care Procedure Analyst Name Role Phone Luis E Narayan MD Primary Care Provider Encounter Details Date Type Department Care Team (Latest Contact Info) Description 01/13/2020 9:45 AM EDT - 01/13/2020 10:44 AM EDT Hospital Encounter XRay at [address] [place] [address] Avila Medina MD [facility] [place] [address] Renal cancer, left Discharge Disposition: Home Social [...] 08/05/2019 06/14/2021 fluticasone propionate (FLONASE) 50 mcg/actuation [place], Suspension 1 spray by Each Nare route [...] 05/01/2024 11:20 AM EDT Appointment Mammography/[place] [address] Rodney Padilla MD [address] [facility] [place] [address] 05/01/2024 1:45 PM EDT [place] [address] Juanpablo Hernandez MD [facility] [place] [address] 05/23/2024 2:45 PM EST Clinical Support [facility] Medicine at [facility] [address] [place] [phone] Julia Low, [facility] 01/30/2025 1:30 PM EDT Laboratory Appointment Lab at [facility] Hematology Oncology [address] [place] [address] 01/30/2025 3:[address] [place] [address] Arturo Cordero MD [facility] DR [place]EMATOLOG[place] [address] 01/30/2025 4:15 PM EDT Office Visit [place]ology [place] [address] Arturo Cordero MD [facility] DR [place]EMAT[place] [address] documented as of this encounter Procedures Procedure [...] left documented in this encounter Care Teams Procedure Analyst Relationship Specialty Start Date End Date Luis E Narayan MD [facility] [place] [address] PCP - General Family Medicine 03/26/19 01/19/22 documented as of this encounter
--- OUTSIDE RECORDS SUMMARY | 2024-04-13 15:50 | XMS_ITS | Encounter Summary ---
Author Organization [facility] Address [facility] [place] [address] Care Team Providers Care Tube Sorter Name Role Phone Luis E Narayan MD Primary Care Provider Reason for Visit * Reason Comments Pre-op Exam 05/14/[address] [facility] Dr. Ezra clayton - bx of LT eye ?Cancer - when should she stop asprin & plavix prior to surgery Encounter Details Date Type Department Care Team (Late st Contact Info) Description 05/06/2020 2:20 PM EDT Office Visit Family Medicine at [facility] [address] [place] [phone] Rebecca Mcgill APRN [facility] [place] [address] Pre-op examination; Preventative health care Social History [...] this encounter Progress Notes * Rebecca Mcgill, GASTROENTEROLOGY TECHNICIAN - 05/06/2020 2:20 PM EDT cc: Alize [...] CV: no chest pain, extremity edema, palpitations, JACKSON; METS >/= < 4 PULM: no cough, wheeze, SOB GI: no N/V/D, abd pain, constipation : no frequency, urgency, dysuria, incontinence GENITALIA: MSK: no pain, stiffness, change in activity/strength NEURO: no PEARSON, dizzy, numbness, weakness SKIN: no rashes PSYCH: no anxiety, depression Patient Active Problem List Diagnosis Code ??? 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 Hematology Oncology [address] [place] [address] 01/30/2025 3:[address] [place] [address] Arturo Cordero MD [facility] [place] [address] 01/30/2025 4:15 PM EDT Office Visit Hematology [place] [address] Arturo Cordero MD [facility] [place] [address] documented as of this encounter Visit Diagnoses Diagnosis Pre-op examination Preoperative examination, unspecified Preventative health care Routine general medical examination at a health care facility documented in this encounter Care Teams Tube Sorter Relationship Specialty Start Date End Date Luis E Narayan MD [facility] [address] [place] [address] PCP - General Family Medicine 03/26/19 01/19/22 documented as of this encounter
--- OUTSIDE RECORDS SUMMARY | 2024-04-13 15:50 | XMS_ITS | Encounter Summary ---
Author Organization [place] [address] Care Team Providers Care Sorority Supervisor Name Role Phone Luis E Narayan MD Primary Care Provider Encounter Details Date Type Department Care Team (Late st Contact Info) Description 02/04/2020 Telephone [address] [facility] [address] [facility] [address] [place] [phone] Christine Aponte Social History Tobacco Use Types [...] and schedule a four month fuv with HORTENSIA (around end of February). PAPI documented in this encounter Plan of Treatment Upcoming Encounters Date Type Department Care Team (Late st Contact Info) Description 05/01/2024 11:20 AM EDT Appointment Mammography/[place] [address] Rodney Padilla MD [address] [place] [address] 05/01/2024 1:45 PM EDT [place] [address] Juanpablo Hernandez MD [facility] [place] [address] 05/23/2024 2:45 PM EST Clinical Support Family Medicine at [facility] [address] [place] [phone] Julia Low [facility] 01/30/2025 1:30 PM EDT Laboratory Appointment Lab at [facility] Hematology Oncology [address] [place] [address] 01/30/2025 3:[address] [place] [place] [address] Arturo Cordero MD [facility] [place] [address] 01/30/2025 4:15 PM EDT Office Visit [place]ology [place] [address] Arturo Cordero MD [facility] [place] [address] documented as of this encounter Visit Diagnoses Not on filedocumented in this encounter Care Teams Sorority Supervisor Relationship Specialty Start Date End Date Luis E Narayan MD [facility] DR [facility] [facility] [place] [address] PCP - General Family Medicine 03/26/19 01/19/22 documented as of this encounter
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
--- OUTSIDE RECORDS SUMMARY | 2024-04-13 15:50 | XMS_ITS | Encounter Summary ---
[place] [address] Care Team Providers Care Naphthalene Operator Helper Name Role Phone Luis E Narayan MD Primary Care Provider [phone]- [phone] Reason for Visit * Reason Onset Date Comments Medication Refill 06/01/2020 Pred Forte to [facility] Encounter Details Date Type Department Care Team (Late st Contact Info) Description 06/01/2020 [place] [phone] Juanpablo Hernandez MD [facility] [place] [address] Conjunctival tumor Social History Tobacco Use Types [...] 05/01/2024 11:20 AM EDT Appointment Mammography/[place] [address] Rodney Padilla MD [address] [place] [address] 05/01/2024 1:45 PM EDT Office [place] [address] Juanpablo Hernandez MD [facility] [place] [address] 05/23/2024 2:45 PM EST Clinical Support Family Medicine at [facility] [address] [place] [address] Julia Low, [facility] 01/30/2025 1:30 PM EDT Laboratory Appointment Lab at [facility] Hematology Oncology [address] [place] [address] 01/30/2025 3:[address] [place] [address] Arturo Cordero MD [facility] DR HEMATOLOGY [place] [address] 01/30/2025 4:15 PM EDT Office Visit Hematology [place] [address] Arturo Cordero MD [facility] DR HEMATOLOGY [place] [address] documented as of this encounter Visit Diagnoses Diagnosis Conjunctival tumor Neoplasms of unspecified nature, other specified sites documented in this encounter Care Teams Naphthalene Operator Helper Relationship Specialty Start Date End Date Luis E Narayan MD [facility] [address] [address] PCP - General Family Medicine 03/26/19 01/19/22 documented as of this encounter
--- OUTSIDE RECORDS SUMMARY | 2024-04-13 15:50 | XMS_ITS | Encounter Summary ---
[place] [address] Care Team Providers Care Legal Referee Name Role Phone Luis E Narayan MD Primary Care Provider [phone]- [phone] Encounter Details Date Type Department Care Team (Latest Contact Info) Description 06/08/2020 1:27 PM EST - 06/08/2020 11:59 PM EST Hospital [place] [address] Discharge Disposition: Home Social History Tobacco Use [...] 08/05/2019 06/14/2021 fluticasone propionate (FLONASE) 50 mcg/actuation Fleming, Suspension 1 spray by Each Nare route [...] 05/01/2024 11:20 AM EDT Appointment Mammography/[place] [address] Rodney Padilla MD [address] [place] [address] 05/01/2024 1:45 PM EDT [place] [address] Juanpablo Hernandez MD [facility] [place] [address] 05/23/2024 2:45 PM EST Clinical Support Family Medicine at [facility] [address] [place] [address] Julia Low [facility] 01/30/2025 1:30 PM EDT Laboratory Appointment Lab at [facility] Hematology Oncology [address] [place] [address] 01/30/2025 3:[address] [place] [place] [address] Arturo Cordero MD [facility] DR HEMATOLOGY [place] [address] 01/30/2025 4:15 PM EDT Office Visit [place]ology [place] [address] Arturo Cordero MD [facility] HEMATOLOGY [place] [address] documented as of this encounter Visit Diagnoses Not on filedocumented in this encounter Care Teams Legal Referee Relationship Specialty Start Date End Date Luis E Narayan MD [facility] [address] [address] PCP - General Family Medicine 03/26/19 01/19/22 documented as of this encounter
--- OUTSIDE RECORDS SUMMARY | 2024-04-13 15:50 | XMS_ITS | Encounter Summary ---
[place] [address] Care Team Providers Care R Programmer Name Role Phone Luis E Narayan MD Primary Care Provider [phone] Reason for Visit * Reason Onset Date Comments Medication Refill 04/28/2020 Encounter Details Date Type Department Care Team (Late st Contact Info) Description 04/28/2020 Refill Family Medicine at [facility] [address] [place] [address] Bonny Emanuel MD [address] [place] [address] Social History Tobacco Use Types Packs/Day Years [...] 05/01/2024 11:20 AM EDT Appointment Mammography/[place] [address] Rodney Padilla MD [address] [place] [address] 05/01/2024 1:45 PM EDT Office [place] [address] Juanpablo Hernandez MD [facility] [place] [address] 05/23/2024 2:45 PM [facility] Clinical Support Family Medicine at [facility] [address] [place] [address] Julia Low, [facility] 01/30/2025 1:30 PM EDT Laboratory Appointment Lab at [facility] Hematology Oncology [address] [place] [address] 01/30/2025 3:[address] [place] [address] Arturo Cordero MD [facility] DR [place] [address] 01/30/2025 4:15 PM EDT Office Visit Hematology [place] [address] Arturo Cordero MD [facility] DR [place] [address] documented as of this encounter Visit Diagnoses Not on filedocumented in this encounter Care Teams R Programmer Relationship Specialty Start Date End Date Luis E Narayan MD [facility] [address] [place] [address] PCP - General Family Medicine 03/26/19 01/19/22 documented as of this encounter
--- OUTSIDE RECORDS SUMMARY | 2024-04-13 15:50 | XMS_ITS | Encounter Summary ---
Author Organization [facility]ly [facility] Address [facility] [place] [address] Care Team Providers Care Wearing Apparel Shaker Name Role Phone Luis E Narayan MD Primary Care Provider [phone]- [phone] Reason for Visit * Reason Onset Date Comments Medication Refill 01/27/2020 Encounter Details Date Type Department Care Team (Late st Contact Info) Description 01/27/2020 Refill Family Medicine at [facility] [address] [place] [address] Luis E Narayan MD [facility] [address] [place] [address] Type 2 diabetes mellitus without long-term current [...] Notes * Telephone Encounter - Ally Mcgarry, [facility] - 01/27/2020 3:32 PM EDT Prescription [...] 05/01/2024 11:20 AM EDT Appointment Mammography/[place] [address] Rodney Padilla MD [address] [facility] [place], [place] [address] 05/01/2024 1:45 PM EDT Office [place] [address] Juanpablo Hernandez MD [facility] DR OPHTHALMOLOGY [place], [place] [address] 05/23/2024 2:45 PM EST Clinical Support Family Medicine at [facility] [address] [place] [address] Julia Low Bac[place] 01/30/2025 1:30 PM EDT Laboratory Appointment Lab at [facility] Hematology Oncology [address] [place] [id number] 01/30/2025 3:[address] [place] [address] Arturo Cordero MD [facility] [place] [address] 01/30/2025 4:15 PM EDT Office Visit Hematology [place] [address] Arturo Cordero MD [facility] [place] [address] documented as of this encounter Visit Diagnoses Diagnosis Type 2 diabetes mellitus without long-term current use of insulin documented in this encounter Care Teams Wearing Apparel Shaker Relationship Specialty Start Date End Date Luis E Narayan MD [facility] [address] [place] [address] PCP - General Family Medicine 03/26/19 01/19/22 documented as of this encounter
--- OUTSIDE RECORDS SUMMARY | 2024-04-13 15:50 | XMS_ITS | Encounter Summary ---
Author Organization [place] [address] Care Team Providers Care Personal Computer Specialist Name Role Phone Luis E Narayan MD Primary Care Provider Reason for Referral * Diagnostic Test (Routine) - Closed Specialty Diagnoses / Procedures Referred By Contchrissy kumari Referred To Contact Radiology Diagnoses Ocular melanoma, left Malignant melanoma, unspecified site Procedures CT Neck Soft Tissue w Contrast (Generic) Arturo Cordero MD [facility] [address] [place] [address] [facility] [place] [address] Referral ID Status Reason Start Date Expiration Date V isits Requested Visits Authorized [id number] Closed Specialty Service Requested 06/08/2020 12/06/2021 1 1 Encounter Details Date Type Department Care Team (Late st Contact Info) Description 06/08/2020 Orders Only Hematology [place] [address] Arturo Cordero MD [facility] DR [place] [address] Ocular melanoma, left; Malignant melanoma, [...] 05/01/2024 11:20 AM EDT Appointment Mammography/[place] [address] Rodney Padilla MD [address] [place] [address] 05/01/2024 1:45 PM EDT Office [place] [address] Juanpablo Hernandez MD [facility] [address] 05/23/2024 2:45 PM EST Clinical Support Family Medicine at [facility] [address] [place] [address] Julia Low, [facility] 01/30/2025 1:30 PM EDT Laboratory Appointment Lab at [facility] Hematology Oncology [address] [place] [address] 01/30/2025 3:[address] [place] [address] Arturo Cordero MD [facility] DR [place] [address] 01/30/2025 4:15 PM EDT Office Visit Hematology [place] [address] Arturo Cordero MD [facility] DR [place] [address] documented as of this encounter Results * [...] below. ? Electronically signed by: HIMANSHU Wiley [facility] ([phone]), at 06/13/2020 8:54 AM Narrative 06/13/2020 8:54 [...] site documented in this encounter Care Teams Personal Computer Specialist Relationship Specialty Start Date End Date Luis E Narayan MD [facility] [place] [address] PCP - General Family Medicine 03/26/19 01/19/22 documented as of this encounter
--- OUTSIDE RECORDS SUMMARY | 2024-04-13 15:50 | XMS_ITS | Encounter Summary ---
[place] [address] Care Team Providers Care Tanker Truck Driver Name Role Phone Luis E Narayan MD Primary Care Provider Reason for Visit * Auth/Cert Specialty Diagnoses / Procedures Referred By Gonzalez kumrai Referred To Contact Diagnoses Pigmented large conjunctival lesion Procedures PRO EXCIS CORNEA LESN EXCISION OF LESION, CORNEA, EXCEPT PTERYGIUM (WRVU 7.5) Referral ID Status Reason Start Date Expiration Date Visits Re quested Visits Authorized [id number] 1 1 Encounter Details Date Type Department Care Team (Late st Contact Info) Description 05/14/2020 12:02 PM EST Anesthesia Event [place] [address] Aki George DO [facility] DR [place] [address] Felipe Ceballos MD [facility] ANESTHESIOLOGY [place] [address] Anesthesia Record Procedure Summary Procedure Name Responsible [...] 1124; median cubital vein (antecubital fossa), right; nuau-oei-wckdap catheter system; 22 gauge; Daisha MCCOLLUM ; [...] Procedure Summary Date: 05/14/20 Room / Location: [facility] [place] [address] [place] [address] Anesthesia Start: 1202 Anesthesia Stop: 1312 Procedures: EXCISION OF LESION, CORNEA, EXCEPT PTERYGIUM (WRVU 7.5) (Left Eye) DESTRUCTION OF LESION OF CORNEA BY CRYOTHERAPHY (WRVU 3.47) (Left Eye) PLACEMENT OF AMNIOTIC MEMBRANE ON THE OCULAR SURFACE,SINGLE LAYER,SUTURED (WRVU 2.5) (Left ) Diagnosis: (Pigmented large conjunctival lesion) Surgeon: Juanpablo Hernandez MD Responsible Provider: Aki George DO Anesthesia Type: general ASA Status: 3 All Anesthesia Providers: Anesthesiologist: Aki George DO GANG SUPERVISOR PIPE LINES: Chantell Castellanos CRNA Vitals Value Taken Time BP 136/78 05/14/20 1320 Temp 36.3 ??C (97.3 ??F) 05/14/20 1316 Pulse 65 05/14/20 1321 Resp 18 05/14/20 1316 SpO2 94 % 05/14/20 1321 Pain Level 0 05/14/20 1316 Vitals shown include unvalidated device data. Patient Location: PACU/[facility] Level of Consciousness: Awake and Alert Pain [...] grade (VALENTINO 1) 2018 Normal Pap, HPV Orthopedic Dentist eConsult 2019: She should have pap/HPV cotest [...] Bipolar affective disorder in remission Diagnosis in [facility] records, unconfirmed ??? Anxiety ??? Type 2 diabetes mellitus without long-term current use of insulin ??? TITO (obstructive sleep apnea) PSG 03/05/10 @ 271 lbs: AHI of 27, [facility] AHI of 16, min saturation of [...] TSH, etc. ??? Coronary artery disease involving [place] coronary artery of [place] heart with angina pectoris History of angina [...] uses inhalerswith good effect ??? Atherosclerosis of [place] coronary artery of [place] heart with angina pectoris 10/09/2007 History of [...] 27.41) performed by Avila Medina MD at [facility] Social History Tobacco Use [...] on CPAP, depression/anxiety/bipolar, HLD, HTN, CAD s/p NV and 4 stents to LCx in 10/2007, [...] 05/01/2024 11:20 AM EDT Appointment Mammography/[place] [address] Rodney Padilla MD [address] [place] [address] 05/01/2024 1:45 PM EDT Office [place] [address] Juanpablo Hernandez MD [facility] DR [place] [address] 05/23/2024 2:45 PM EST Clinical Support [facility] Medicine at [facility] [address] [place] [address] Julia Low, [facility] 01/30/2025 1:30 PM EDT Laboratory Appointment Lab at [facility] Hematology Oncology [address] [place] [address] 01/30/2025 3:[address] [place] [address] Arturo Cordero MD [facility] DR HEMATOLOGY [place] [address] 01/30/2025 4:15 PM EDT Office Visit Hematology [place] [address] Arturo Cordero MD [facility] DR HEMATOLOGY [place] [address] documented as of this encounter [...] /hr documented in this encounter Care Teams Tanker Truck Driver Relationship Specialty Start Date End Date Luis E Narayan MD [facility] [address] [address] PCP - General Family Medicine 03/26/19 01/19/22 documented as of this encounter
--- OUTSIDE RECORDS SUMMARY | 2024-04-13 15:50 | XMS_ITS | Encounter Summary ---
Author Organization [facility] [place] [address] Care Team Providers Care Plant Controls Specialist Name Role Phone Luis E Narayan MD Primary Care Provider [phone] Reason for Referral * Diagnostic Test (Routine) - Closed Specialty Diagnoses / Procedures Referred By Contac t Referred To Contact Radiology Diagnoses Ocular melanoma, left Procedures MRI Brain wwo Contrast (Generic) Sri Frederick MD [facility] DR HEMATOLOGY/[place] [address] [place] [address] Referral ID Status Reason Start Date Expiration Date V isits Requested Visits Authorized [id number] Closed Specialty Service Requested 05/26/2020 11/23/2021 1 1 Reason for Visit * Diagnostic Test (Routine) - Closed Specialty Diagnoses / Procedures Referred By Contac t Referred To Contact Radiology Diagnoses Ocular melanoma, left Procedures MRI Brain wwo Contrast (Generic) Sri Frederick MD [facility] HEMATOLOGY/[place] [address] [place] [address] Referral ID Status Reason Start Date Expiration Date V isits Requested Visits Authorized [id number] Closed Specialty Service Requested 05/26/2020 11/23/2021 1 1 Encounter Details Date Type Department Care Team (Latest Contact Info) Description 06/12/2020 2:05 PM EST - 06/12/2020 3:31 PM EST Hospital Encounter MRI at [facility] [address] Arturo Cordero MD [facility] DR HEMATOLOGY [place] [address] Ocular melanoma, left Discharge Disposition: Home Social [...] 08/05/2019 06/14/2021 fluticasone propionate (FLONASE) 50 mcg/actuation [place], Suspension 1 spray [...] 05/01/2024 11:20 AM EDT Appointment Mammography/[place] [address] Rodney Padilla MD [address] [place] [address] 05/01/2024 1:45 PM EDT Office [place] [address] Juanpablo Hernandez MD [facility] DR OPHTHALMOLOGY [place], [place] [address] 05/23/2024 2:45 PM EST Clinical Support [facility] [address] [place] [address] Julia Low, [facility] 01/30/2025 1:30 PM EDT Laboratory Appointment Lab at [facility] [place]ematology Oncology [address] [place] [address] 01/30/2025 3:[address] [place] [place] [address] Arturo Cordero MD [facility] DR HEMATOLOGY AND ONCOLOGY [place], [place] [address] 01/30/2025 4:15 PM EDT Office Visit Hematology [place] [address] Arturo Cordero MD [facility] DR HEMATOLOGY [place] [address] documented as of this encounter [...] please contact the number below. ? Narrative 06/12/2020 4:58 PM EST EXAMINATION: MRI [...] the number below. Arturo Cordero MD IMG MRI ORDERABLES documented in this [...] mLs documented in this encounter Care Teams Plant Controls Specialist Relationship Specialty Start Date End Date Luis E Narayan MD [facility] [address] PCP - General Family Medicine 03/26/19 01/19/22 documented as of this encounter
--- OUTSIDE RECORDS SUMMARY | 2024-04-13 15:50 | XMS_ITS | Encounter Summary ---
[place] [address] Care Team Providers Care Card Decorator Name Role Phone Luis E Naaryan MD Primary Care Provider [phone] Reason for Visit * Reason Onset Date Comments Medication Refill 05/25/2020 Encounter Details Date Type Department Care Team (Late st Contact Info) Description 05/25/2020 Refill Family Medicine at [facility] [address] [place] [address] Bonny Emanuel MD [address] [place] [address] Essential hypertension Social History Tobacco Use Types [...] 05/01/2024 11:20 AM EDT Appointment Mammography/[place] [address] Rodney Padilla MD [address] [place] [address] 05/01/2024 1:45 PM EDT Office [place] [address] Juanpablo Hernandez MD [facility] [place] [address] 05/23/2024 2:45 PM [facility] Clinical Support Family Medicine at [facility] [address] [place] [address] Julia Low, [facility] 01/30/2025 1:30 PM EDT Laboratory Appointment Lab [place] [facility] [place] [address] [place] [address] 01/30/2025 3:[address] [place] [address] Arturo Cordero MD [facility] DR HEMATOLOGY [place] [address] 01/30/2025 4:15 PM EDT Office Visit Hematology [place] [address] Arturo Cordero MD [facility] DR [place] [address] documented as of this encounter Visit Diagnoses Diagnosis Essential hypertension Unspecified essential hypertension documented in this encounter Care Teams Card Decorator Relationship Specialty Start Date End Date Luis E Narayan MD [facility] [address] [place] [address] PCP - General Family Medicine 03/26/19 01/19/22 documented as of this encounter
--- OUTSIDE RECORDS SUMMARY | 2024-04-13 15:50 | XMS_ITS | Encounter Summary ---
Author Organization [facility] [place] [address] Care Team Providers Care Top Stop Attacher Name Role Phone Luis E Narayan MD Primary Care Provider [phone] Reason for Visit * Consultation (Routine) - Closed Specialty Diagnoses / Procedures Referred By Gonzalez kumari Referred To Contact Ophthalmology Diagnoses amyloid pterygium os Moiz Ontiveros, OD [address] [place] [address] Juanpablo Hernandez MD [facility] [place] [address] Referral ID Status Reason Start Date Expiration Date V isits Requested Visits Authorized [id number] Closed Consult, Test & Treat PCP Updated and/or Approved 06/13/2019 06/12/2020 1 1 Encounter Details Date Type Department Care Team (Latest Contact Info) Description 03/31/2020 10:00 AM EDT Office [place] [address] Juanpablo Hernandez MD [facility] OPHTHALMOLOGY [place], [place] [phone] Diabetic polyneuropathy associated with type 2 diabetes [...] AM EDT Appointment Mammography/[place] [address] Rodney Padilla MD [address] [place] [address] 05/01/2024 1:45 PM EDT Office [place] [address] Juanpablo Hernandez MD [facility] [address] 05/23/2024 2:45 PM EST Clinical Support Family Medicine at [facility] [address] [place] [address] uJlia Low [facility] 01/30/2025 1:30 PM EDT Laboratory Appointment Lab at [facility] Hematology Oncology [address] [place] [address] 01/30/2025 3:[address] [place] [address] Arturo Cordero MD [facility] DR [place] [address] 01/30/2025 4:15 PM EDT Office Visit Hematology [place] [address] Arturo Cordero MD [facility] [place] [address] documented as of this encounter Procedures Procedure [...] left documented in this encounter Care Teams Top Stop Attacher Relationship Specialty Start Date End Date Luis E Narayan MD [facility] DR [address] [place] [address] PCP - General Family Medicine 03/26/19 01/19/22 documented as of this encounter
--- OUTSIDE RECORDS SUMMARY | 2024-04-13 15:50 | XMS_ITS | Encounter Summary ---
Author Organization [place] [address] Care Team Providers Care Assembler Name Role Phone Luis E Narayan MD Primary Care Provider Reason for Referral * Diagnostic Test (Routine) - Closed Specialty Diagnoses / Procedures Referred By Contac t Referred To Contact Radiology Diagnoses Ocular melanoma, left Malignant melanoma, unspecified site Procedures CT Neck Soft Tissue w Contrast (Generic) Arturo Cordero MD [facility] [address] [place] [address] [facility] [place] [address] Referral ID Status Reason Start Date Expiration Date V isits Requested Visits Authorized [id number] Closed Specialty Service Requested 06/08/2020 12/06/2021 1 1 * Diagnostic Test (Routine) - Closed Specialty Diagnoses / Procedures Referred By Contac t Referred To Contact Radiology Diagnoses Ocular melanoma, left Renal cell cancer, left Procedures CT Chest Abdomen Pelvis w Contrast (Generic) Sri Frederick MD [facility] DR HEMATOLOGY/[place] [address] [facility] [place] [address] Referral ID Status Reason Start Date Expiration Date V isits Requested Visits Authorized [id number] Closed Specialty Service Requested 05/26/2020 11/23/2021 1 1 Reason for Visit * Diagnostic Test (Routine) - Closed Specialty Diagnoses / Procedures Referred By Contac t Referred To Contact Radiology Diagnoses Ocular melanoma, left Renal cell cancer, left Procedures CT Chest Abdomen Pelvis w Contrast (Generic) Sri Frederick MD [facility] DR HEMATOLOGY/[place] [address] [facility] [place] [address] Referral ID Status Reason Start Date Expiration Date V isits Requested Visits Authorized [id number] Closed Specialty Service Requested 05/26/2020 11/23/2021 1 1 Encounter Details Date Type Department Care Team (Latest Contact Info) Description 06/12/2020 3:32 PM EST - 06/12/2020 11:59 PM EST Hospital [place] [address] Arturo Cordero MD [facility] [address] [place] [address] Ocular melanoma, left; Renal cell cancer, left; [...] 08/05/2019 06/14/2021 fluticasone propionate (FLONASE) 50 mcg/actuation [place], Suspension 1 spray by Each Nare [...] AM EDT Appointment Mammography/[place] [address] Rodney Padilla MD [address] [place] [address] 05/01/2024 1:45 PM EDT Office [place] [address] Juanpablo Hernandez MD [facility] [place] [address] 05/23/2024 2:45 PM EST Clinical Support Family Medicine at [facility] [address] [place] [address] Julia Low [facility] 01/30/2025 1:30 PM EDT Laboratory Appointment Lab at [facility] Hematology Oncology [address] [place] [address] 01/30/2025 3:[address] [place] [address] Arturo Cordero MD [facility] [address] [place] [address] 01/30/2025 4:15 PM EDT Office Visit [place]ology [place] [address] Arturo Cordero MD [facility] [place] [address] documented as of this encounter Procedures Procedure [...] please contact the number below. ? Narrative 06/13/2020 8:54 AM EST EXAMINATION: CT [...] below. Arturo Cordero MD IMG CT ORDERABLES * [...] ? Electronically signed by: Paulina Saldivar MD, [facility] ([phone]), at 06/14/2020 8:22 AM Narrative 06/14/2020 8:22 [...] below. Electronically signed by: Paulina Saldivar MD, [facility]([phone]), at 06/14/2020 8:22 AM Arturo Cordero MD [...] mLs documented in this encounter Care Teams Assembler Relationship Specialty Start Date End Date Luis E Narayan MD [facility] [address] [place] [address] PCP - General Family Medicine 03/26/19 01/19/22 documented as of this encounter
--- OUTSIDE RECORDS SUMMARY | 2024-04-13 15:50 | XMS_ITS | Encounter Summary ---
[place] [address] Care Team Providers Care Cracker Sprayer Name Role Phone Luis E Narayan MD Primary Care Provider [phone] Encounter Details Date Type Department Care Team (Latest Contact Info) Description 01/13/2020 10:00 AM EDT Laboratory Appointment Lab [address] [place] [address] Type 2 diabetes mellitus without long-term current [...] MD [address] [place] [address] 05/01/2024 1:45 PM EDT Office [place] [address] Juanpablo Hernandez MD [facility] [place] [address] 05/23/2024 2:45 PM EST Clinical Support Family Medicine at [facility] [address] [place] [address] Devante Julia Prabhu, [facility] 01/30/2025 1:30 PM EDT Laboratory Appointment Lab at [facility] Hematology Oncology [address] [place] [address] 01/30/2025 3:[address] [place] [address] Arturo Cordero MD [facility] [place] [address] 01/30/2025 4:15 PM EDT Office Visit Hematology [place] [address] Arturo Cordero MD [facility] [place] [address] documented as of this encounter Procedures Procedure [...] Hemoglobin A1c 6.9(H) 4.3 - 5.6 % [facility] Comment: Reference Range: 4.3 [...] 1, S67-74 Estimated Average Glucose 151 mg/dL [facility] Comment: eAG equivalents for [...] into estimated average glucose values. ??Diabetes Care 2008:31(8):2835-2125. Blood specimen (specimen) 01/13/2020 10:13 AM EDT 01/13/2020 10:22 AM EDT Narrative Resulting Agency Comment Spec In Lab Luis E Narayan MD CHEMISTRY ORDERABLE S [facility] [place] [address] * Comprehensive metabolic panel (non-fasting) (01/13/2020 10:13 AM EDT) Glucose 156 65 - 199 mg/dL [facility] Comment:Diabetes: >=200 mg/d L plus symptoms Blood Urea Nitrogen 17 8 - 18 mg/dL [facility] Creatinine 0.86 0.70 - 1.20 mg/dL [facility] Sodium 141 135 - 145 mmol/L [facility] Potassium 4.3 3.5 - 5.0 mmol/L [facility] Comment: Please note: ??Patients with WBC >100,000 may have falsely elevated Potassium levels. ??For accurate Potassium quantification in these patients send serum separator tube (gold top) for subsequent determinations. ??Contact the Clinical Chemistry Laboratory if there are any questions. Chloride 105 98 - 107 mmol/L [facility] Carbon Dioxide 24 22 - 31 mmol/L [facility] Anion Gap 12 5 - 15 mmol/L [facility] Calcium 9.4 8.5 - 10.5 mg/dL [facility] Protein, Total 6.7 6.1 - 8.0 gm/dL [facility] Albumin 4.2 3.2 - 5.2 gm/dL [facility] Aspartate Aminotransferase 18 0 - 30 unit/L [facility] Alanine Aminotransferase 25 0 - 30 unit/L [facility] Alkaline Phosphatase 88 35 - 105 unit/L [facility] Bilirubin, Total 0.3 0.2 - 1.3 mg/dL [facility] Est Glomerular Filtration Rate 73 >=60 mL/min/1. 73 m?? [facility] Comment: The eGFR was calculated using the CKD-EPI equation. As with all creatinine based estimates of kidney function, eGFR values calculated with the CKD-EPI equation are not accurate in patients with acute kidney failure, extremes of body mass or the acutely ill. [email or web address] eGFR 85 >=60 mL/min/1. 73 m?? [facility] Comment: The eGFR was calculated using the CKD-EPI equation. As with all creatinine based estimates of kidney function, eGFR values calculated with the CKD-EPI equation are not accurate in patients with acute kidney failure, extremes of body mass or the acutely ill. [email or web address]://[email or web address] Blood specimen (specimen) 01/13/2020 10:13 AM EDT 01/13/2020 10:22 AM EDT Narrative Resulting Agency Comment Spec In Lab Luis E Narayan MD CHEMISTRY ORDERABLE S [facility] [place] [address] documented in this encounter Visit Diagnoses Diagnosis Type 2 diabetes mellitus without long-term current use of insulin Renal cancer, left documented in this encounter Care Teams Cracker Sprayer Relationship Specialty Start Date End Date Luis E Narayan MD [facility] [address] [place] [address] PCP - General Family Medicine 03/26/19 01/19/22 documented as of this encounter
--- OUTSIDE RECORDS SUMMARY | 2024-04-13 15:50 | XMS_ITS | Encounter Summary ---
[place] [address] Care Team Providers Care Watchguard Name Role Phone Luis E Narayan MD Primary Care Provider Reason for Visit * Auth/Cert Specialty Diagnoses / Procedures Referred By Gonzalez kumari Referred To Contact Diagnoses Pigmented large conjunctival lesion Procedures PRO EXCIS CORNEA LESN EXCISION OF LESION, CORNEA, EXCEPT PTERYGIUM (WRVU 7.5) Referral ID Status Reason Start Date Expiration Date Visits Re quested Visits Authorized [id number] 1 1 Encounter Details Date Type Department Care Team (Latest Contact Info) Description 05/14/2020 10:53 AM EST - 05/14/2020 1:25 PM EST Hospital Encounter Outpatient [place] [address] Mert Hernandez MD [facility] [place] [address] Discharge Disposition: Home Social History Tobacco Use [...] surgery Mert Hernandez MD Section of ophthalmology [facility] [phone] - Keep your eye patched, shielded, clean and dry overnight. The patch will be removed during your follow up visit with Dr. Hernandez tomorrow. - The surgery center nurses should confirm time of your follow up appointment for tomorrow with . This appointment will be at the Eye Clinic in the main building at [facility]. - Mild discomfort is normal, but if you have any severe eye pain or bleeding call [phone] and ask to speak to the eye doctor reinforcing iron and rebar workers. - Call your Primary Care Doctor or [...] 08/05/2019 06/14/2021 fluticasone propionate (FLONASE) 50 mcg/actuation [place], Suspension 1 spray by Each Nare route [...] patient was questioned regarding travel outside of [place] states, fever, cough, SOB or other illness [...] again, temperature will be taken, patient and caregiver/stake driver will be given a mask to wear the entire time they are in the [facility] building. * Grecia Lamb RN - 05/11/2020 9:20 AM EST During this call the patient was questioned regarding travel outside of [facility], fever, cough, SOB or other illness [...] again, temperature will be taken, patient and caregiver/stake driver will be given a mask to [...] Hernandez MD - 05/14/2020 1:14 PM EST [facility] Operative Note Patient Name: Alize Gramajo : [id number] MR#: [id number] Case Date: 05/14/2020 Surgeon: Surgeon(s) and Role: [...] 2 mL Surgical Staff/Assistants: Mert Hernandez M.D. ([id number]) * Preoperative Diagnosis: Limbal conjunctival tumor, left [...] fresh instruments were obtained.The amniotic membrane donor [id number] from [employer] was applied to the scleral bed and [...] MD [address] [place] [place] [address] 05/01/2024 1:45 PM EDT Office [place] [address] Mert Hernandez MD [facility] [place] [address] 05/23/2024 2:45 PM EST Clinical Support Family Medicine at [facility] [address] [place] [address] Julia Low [facility] 01/30/2025 1:30 PM EDT Laboratory Appointment Lab at [facility] Hematology Oncology [address] [place] [address] 01/30/2025 3:[address] [place] [address] Arturo Cordero MD [facility] DR [place] [address] 01/30/2025 4:15 PM EDT Office Visit Hematology [place] [address] Arturo Cordero MD [facility] DR [place] [address] documented as of this encounter Procedures Procedure [...] Place Amniotic Membrane Ocular Surface;Single Layer Sutured (33370) 05/14/2020 12:04 PM EST Pigmented large conjunctival lesion Destr Corneal Lesn, Cryo, Photo, Therm ([id number]) 05/14/2020 12:04 PM EST Pigmented large conjunctival lesion Excis Cornea Lesn ([id number]) 05/14/2020 12:04 PM EST Pigmented large conjunctival [...] follow Mert Hernandez MD PATHOLOGY/CYTOLOGY O ULISES [facility] [place] [address] * Specimen to Pathology (05/14/2020 12:47 PM EST) AP Specimen 05/14/2020 12:4 7 PM EST 05/14/2020 12:47 PM EST Narrative [facility] - 05/14/2020 12:47 PM EST Specimen requisition ordered. ??Separate Pathology report to follow Mert Hernandez MD PATHOLOGY/CYTOLOGY O RDLESLEY [facility] [place] [address] * Specimen to Pathology (05/14/2020 12:47 PM EST) AP Specimen 05/14/2020 12:4 7 PM EST 05/14/2020 12:47 PM EST Narrative [facility] - 05/14/2020 12:47 PM EST Specimen requisition ordered. ??Separate Pathology report to follow Mert Hernandez MD PATHOLOGY/CYTOLOGY O ULISES Performing Organization Address [facility] de Phone Number [facility] [place] [address] * Specimen to Pathology (05/14/2020 12:47 PM EST) AP Specimen 05/14/2020 12:4 7 PM EST 05/14/2020 12:47 PM EST Narrative [facility] - 05/14/2020 12:47 PM EST Specimen requisition ordered. ??Separate Pathology report to follow Mert Hernandez MD PATHOLOGY/CYTOLOGY O ULISES Performing Organization Address [facility] de Phone Number [facility] [place] [address] * Solid Tumor NGS Panel (05/14/2020 12:40 PM EST) Tissue specimen (specimen) 05/14/2020 12:40 PM EST 06/01/2020 11:57 AM EST Narrative Resulting Agency Comment Spec In Lab Mert Hernandez MD PATHOLOGY/CYTOLOGY O ULISES Performing Organization Address [facility] de Phone Number [facility] [place] [address] * Surgical Pathology Report (05/14/2020 12:40 PM EST) Final Diagnosis [id number] ? Location: [facility] The signing pathologist has [...] PhD, Allen Verified: ??05/20/2020 ?Dermatopathologist Performed at: ??-[facility] Dept. of Pathology, [place], [place] DISCUSSION A( Left eye, conjunctiva excision) [...] PM EST Mert Hernandez MD PATHOLOGY/CYTOLOGY O RDERACELY [facility] [place] [address] documented in this encounter Visit Diagnoses Not [...] Left Eye, ONCE, 1 dose, On Carolee 11/5/20 at 1115, 1 drop to the operative [...] time) documented in this encounter Care Teams Watchguard Relationship Specialty Start Date End Date Luis E Narayan MD [facility] [place] [address] PCP - General Family Medicine 03/26/19 01/19/22 documented as of this encounter
--- OUTSIDE RECORDS SUMMARY | 2024-04-13 15:50 | XMS_ITS | Encounter Summary ---
Author Organization [facility] [place] [address] Care Team Providers Care Manufacturing Teacher Name Role Phone Luis E Narayan MD Primary Care Provider [phone] Reason for Referral * Consultation (Urgent) - Closed Specialty Diagnoses / Procedures Referred By Gonzalez kumari Referred To Contact Hematology and Oncology Diagnoses Conjunctival tumor Juanpablo Hernandez MD [facility] [place] [address] [facility] Hem [place]c [address] [place] [address] Referral ID Status Reason Start Date Expiration Date V isits Requested Visits Authorized [id number] Closed Consult, Test & Treat 05/19/2020 05/19/2021 1 1 Reason for Visit * Reason Comments Post Op Encounter Details Date Type Department Care Team (Late st Contact Info) Description 05/19/2020 10:15 AM EST [place] [phone] Juanpablo Hernandez MD [facility] [place] [address] Conjunctival tumor; Malignant melanoma of conjunctiva, left [...] to epithelium. Spoke with Dr. Gordon at [facility] in a general way about this [...] 05/01/2024 11:20 AM EDT Appointment Mammography/[place] [address] Rodney Padilla MD [address] [place] [address] 05/01/2024 1:45 PM EDT Office [place] [phone] Juanpablo Hernandez MD [facility] [place] [address] 05/23/2024 2:45 PM EST Clinical Support Family Medicine at [facility] [address] [place] [phone] Julia Low [facility] 01/30/2025 1:30 PM EDT Laboratory Appointment Lab at [facility] Hematology Oncology [address] [place] [address] 01/30/2025 3:[address] [place] [place] [address] Arturo Cordero MD [facility] DR HEMATOLOGY [place] [address] 01/30/2025 4:15 PM EDT Office Visit [place] [address] Arturo Cordero MD [facility] HEMATOLOGY [place] [address] Scheduled Referrals Name Type Priority Associated Diagnoses Order Schedule Referral to Hematology and Oncology Outpatient Referral Routine Conjunctival tumor Ordered: 05/19/2020 documented as of this encounter Visit Diagnoses Diagnosis Conjunctival tumor Neoplasms of unspecified nature, other specified sites Malignant melanoma of conjunctiva, left documented in this encounter Care Teams Manufacturing Teacher Relationship Specialty Start Date End Date Luis E Narayan MD [facility] [address] [address] PCP - General Family Medicine 03/26/19 01/19/22 documented as of this encounter
--- OUTSIDE RECORDS SUMMARY | 2024-04-13 15:50 | XMS_ITS | Encounter Summary ---
Author Organization [facility] [place] [address] Care Team Providers Care Candy Butcher Name Role Phone Luis E Narayan MD Primary Care Provider Reason for Visit * Reason Onset Date Comments New Medication Request 02/21/2020 Encounter Details Date Type Department Care Team (Late st Contact Info) Description 02/21/2020 Telephone Family Medicine at [facility] [address] [place] [address] Medhat Phillips New Medication Request Social History [...] I reminded Alize to touch base w/ [facility] about seeking medication management there; if she is not able to access those services, PCP and I can work to connect her w/ our medication management clinic in 5D. * Telephone Encounter - JoseMedhat - 02/21/2020 1:38 PM EDT Message: Pt [...] send my- message: n Offered Appointment: n MA/Nurse/Traveling Auditor contacted via: Message: y Call: n Pager: n documented in this encounter Plan of Treatment Upcoming Encounters Date Type Department Care Team (Late st Contact Info) Description 05/01/2024 11:20 AM EDT Appointment Mammography/[place] [address] Rodney Padilla MD [address] [facility] [place], [place] [id number] 05/01/2024 1:45 PM EDT Office [place] [address] Juanpablo Hernandez MD [facility] [place] [address] 05/23/2024 2:45 PM EST Clinical Support Family Medicine at [facility] [address] [place] [phone] Julia Low [facility] 01/30/2025 1:30 PM EDT Laboratory Appointment Lab at [facility] Hematology Oncology [address] [place] [address] 01/30/2025 3:[address] [place] [address] Arturo Cordero MD [facility] [address] [place] [address] 01/30/2025 4:15 PM EDT Office Visit Hematology [place] [address] Arturo Cordero MD [facility] [place] [address] documented as of this encounter Visit Diagnoses Not on filedocumented in this encounter Care Teams Candy Butcher Relationship Specialty Start Date End Date Luis E Narayan MD [facility] [address] [place] [address] PCP - General Family Medicine 03/26/19 01/19/22 documented as of this encounter
--- OUTSIDE RECORDS SUMMARY | 2024-04-13 15:50 | XMS_ITS | Encounter Summary ---
Author Organization [facility] [place] [address] Care Team Providers Care Software Configuration Analyst Name Role Phone Luis E Narayan MD Primary Care Provider Reason for Referral * Diagnostic Test (Routine) - Closed Specialty Diagnoses / Procedures Referred By Contac t Referred To Contact Radiology Diagnoses Ocular melanoma, left Procedures MRI Brain wwo Contrast (Generic) Sri Frederick MD [facility] DR HEMATOLOGY/[place] [address] [facility] [place] [address] Referral ID Status Reason Start Date Expiration Date V isits Requested Visits Authorized [id number] Closed Specialty Service Requested 05/26/2020 11/23/2021 1 1 * Diagnostic Test (Routine) - Closed Specialty Diagnoses / Procedures Referred By Contchrissy t Referred To Contact Radiology Diagnoses Ocular melanoma, left Renal cell cancer, left Procedures CT Chest Abdomen Pelvis w Contrast (Generic) Sri Frederick MD [facility] HEMATOLOGY/[place] [address] [facility] [place] [address] Referral ID Status Reason Start Date Expiration Date V isits Requested Visits Authorized [id number] Closed Specialty Service Requested 05/26/2020 11/23/2021 1 1 Reason for Visit * Reason Comments Follow-up * Consultation (Urgent) - Closed Specialty Diagnoses / Procedures Referred By Gonzalez kumari Referred To Contact Hematology and Oncology Diagnoses Conjunctival tumor Juanpablo Hernandez MD [facility] [place] [address] [facility] Hem Onc [address] [place] [address] Referral ID Status Reason Start Date Expiration Date V isits Requested Visits Authorized [id number] Closed Consult, Test & Treat 05/19/2020 05/19/2021 1 1 Encounter Details Date Type Department Care Team (Late st Contact Info) Description 05/26/2020 2:00 PM EST Office Visit Hematology [place] [address] Arturo Cordero MD [facility] DR HEMATOLOGY [place] [address] Leandra Lopes APRN [facility] DR HEMATOLOGY [place] [address] Sri Frederick MD [facility] DR HEMATOLOGY/[place] [address] Ocular melanoma, left (Primary Dx); Renal cell [...] EST INITIAL VISIT [facility] CLINIC NOTE REFERING PHYSICIAN: Dr. Juanpablo Hernandez [...] management - fall 2018: saw a new squeezer operator and was referred to Dr. 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 Medina - 03/31/2020: saw her squeezer operator Dr. Hernandez and was noted to [...] uses inhalerswith good effect ??? 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 PRO EXCIS CORNEA LESN Left 05/14/2020 EXCISION OF LESION, CORNEA, EXCEPT PTERYGIUM (WRVU 7.5) performed by Juanpablo Hernandez MD at [facility] ??? PRO LAP, PARTIAL NEPHRECTOMY Left 06/28/2019 LAPAROSCOPY, PARTIAL NEPHRECTOMY, ROBOTIC ASSIST (WRVU 27.41) performed by Avila Medina MD at [facility] MAIN OR ??? 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 [...] 11:20 AM EDT Appointment Mammography/[place] [phone] Rodney Padilla MD [address] [place] [place] [address] 05/01/2024 1:45 PM EDT Office [place] [phone] Juanpablo Hernandez MD [facility] [address] 05/23/2024 2:45 PM EST Clinical Support Family Medicine at [facility] [address] [place] [address] Julia Low RPH 01/30/2025 1:30 PM EDT Laboratory Appointment Lab at [facility] Hematology Oncology [address] [place] [address] 01/30/2025 3:[address] [place] [address] Arturo Cordero MD [facility] DR HEMATOLOGY [place] [address] 01/30/2025 4:15 PM EDT Office Visit Hematology [place] [address] Arturo Cordero MD [facility] DR HEMATOLOGY [place] [address] Scheduled Orders Name Type Priority Associated Diagnoses [...] ? Electronically signed by: Paulina Saldivar MD, [facility] ([phone]), at 06/14/2020 8:22 AM Narrative 06/14/2020 8:22 [...] below. Electronically signed by: Paulina Saldivar MD, [facility]([phone]), at 06/14/2020 8:22 AM Arturo Cordero MD [...] ? Electronically signed by: Abhay Long MD, [facility] ([phone]), at 06/12/2020 4:58 PM Narrative 06/12/2020 4:58 [...] below. Electronically signed by: Abhay Long MD, [facility]([phone]), at 06/12/2020 4:58 PM Arturo Cordreo MD IMG MRI ORDERABLES * T4, free (06/12/2020 2:00 PM EST) Free T4 1.01 0.93 - 1.70 ng/dL [facility] Blood specimen (specimen) 06/12/2020 2:00 PM EST 06/12/2020 2:04 PM EST Narrative Resulting Agency Comment Spec In Lab Arturo Cordero MD CHEMISTRY ORDERABLES [facility] [place] [place] [address] * TSH (06/12/2020 2:00 PM EST) Thyroid Stimulating Hormone 2.53 0.27 - 4.20 mcIU/mL [facility] Blood specimen (specimen) 06/12/2020 2:00 PM EST 06/12/2020 2:04 PM EST Narrative Resulting Agency Comment Spec In Lab Arturo Cordero MD CHEMISTRY ORDERABLES Performing Organization Address City/[facility] Co de Phone Number [facility] [place] [address] * Lactate Dehydrogenase (06/12/2020 2:00 PM EST) Lactate Dehydrogenase 198 110 - 220 unit/L [facility] Blood specimen (specimen) 06/12/2020 2:00 PM EST 06/12/2020 2:04 PM EST Narrative Resulting Agency Comment Spec In Lab Arturo Cordero MD CHEMISTRY ORDERABLES Performing Organization Address [facility] de Phone Number [facility] [place] [address] * Comprehensive metabolic panel (non-fasting) (06/12/2020 2:00 PM EST) Glucose 166 65 - 199 mg/dL [facility] Comment:Diabetes: >=200 mg/d L plus symptoms Blood Urea Nitrogen 17 8 - 18 mg/dL [facility] Creatinine 0.92 0.70 - 1.20 mg/dL [facility] questions. Chloride 104 98 - 107 mmol/L [facility] Carbon Dioxide 28 22 - 31 mmol/L [facility] Anion Gap 8 5 - 15 mmol/L [facility] Calcium 9.4 8.5 - 10.5 mg/dL [facility] Protein, Total 6.8 6.1 - 8.0 gm/dL [facility] Albumin 4.4 3.2 - 5.2 gm/dL [facility] Aspartate Aminotransferase 17 0 - 30 unit/L [facility] Alanine Aminotransferase 22 0 - 30 unit/L [facility] Alkaline Phosphatase 102 35 - 105 unit/L [facility] Bilirubin, Total 0.4 0.2 - 1.3 mg/dL [facility] Est Glomerular Filtration Rate 68 >=60 mL/min/1. 73 m?? [facility] Comment: This patient? [...] ORDERABLES [facility] [place] [place] [address] documented in this encounter Visit Diagnoses Diagnosis Ocular melanoma, left- Primary Renal cell cancer, left Ocular melanoma, left Renal cell cancer, left Malignant melanoma, unspecified site Ocular melanoma, left documented in this encounter Care Teams Software Configuration Analyst Relationship Specialty Start Date End Date Luis E Narayan MD [facility] [address] [address] PCP - General Family Medicine 03/26/19 01/19/22 documented as of this encounter
--- OUTSIDE RECORDS SUMMARY | 2024-04-13 15:51 | XMS_ITS | Encounter Summary ---
Author Organization [facility] [place] [address] Care Team Providers Care Bush Hog Operator Name Role Phone Luis E Narayan MD Primary Care Provider Reason for Visit * Reason Comments Procedure Encounter Details Date Type Department Care Team (Latest Contact Info) Description 07/25/2019 2:27 PM EST - 07/25/2019 11:59 PM EST Hospital Encounter [place] [address] Cognitive and behavioral changes Discharge Disposition: Home [...] 04/09/2019 06/22/2020 fluticasone propionate (FLONASE) 50 mcg/actuation [place], Suspension 50 sprays by Each Nare route [...] DROWSY Pre-Procedure Diagnose(s): Cognitive and behavioral changes [facility] Department of Neurology Outpatient EEG Report [...] 4 ??? fluticasone propionate (FLONASE) 50 mcg/actuation [place], Suspension 50 sprays by Each Nare route [...] channel digitized electroencephalogram was performed in the [facility] Clinical Neurophysiology Laboratory. The 10/20 international system of electrode placement was used and bipolar and referential electrode montages were recorded. In addition to EEG the patient was monitored for EKGand lateral/vertical eye movements. Video was recorded during the session. The duration of the recording was 25 minutes. SWIMMING POOL SERVICEPERSON'S REPORT: Performed by: SR Patient was not [...] Nathan Ortiz MD Clinical Neurophysiology Fellow Pager: [phone] 07/26/2019 Neurology Attending I have personally reviewed the EEG, and I agree with the details as written. The above report was formulated in discussion with me at the time of EEG reading, and I agree with it as documented. Nigel Garcia MD Department [place] [address] Pager: [phone], #[phone] Email: [email or web address] documented in this encounter Plan of Treatment Upcoming Encounters Date Type Department Care Team (Late st Contact Info) Description 05/01/2024 11:20 AM EDT Appointment Mammography/[place] [address] Rodney Padilla MD [address] [place] [address] 05/01/2024 1:45 PM EDT Office Visit [place] [address] Juanpablo Hernandez MD [facility] [place] [address] 05/23/2024 2:45 PM EST Clinical Support Family Medicine at [place] [address] [place] [address] Julia Low [facility] 01/30/2025 1:30 PM EDT Laboratory Appointment Lab at [facility] Hematology Oncology [address] [place] [address] 01/30/2025 3:[address] [place] [address] Arturo Cordero MD [facility] [address] [place] [address] 01/30/2025 4:15 PM EDT Office Visit Hematology [place] [address] Arturo Cordero MD [facility] [address] [place] [address] documented as of this encounter Procedures Procedure Name Priority Date/Time Associated Diagnosis Comments ZEEG AWAKE, ASLEEP, DROWSY Routine 07/25/2019 3:00 PM EST Cognitive and behavioral changes documented in this encounter Results * EEG awake, asleep, drowsy, routine (07/25/2019 3:00 PM EST) Narrative Nigel Garcia MD - 07/25/2019 3:00 PM EST Nigel Garcia MD ? 07/28/2019 10:59 PM [facility] Department of Neurology Outpatient EEG Report Name of the Patient: ??Alize Gramajo Date of : ?1960 Date of Service: ?07/25/2019 Referring physician: ?[place] BRIEF HISTORY: Alize Gramajo is a 58 [...] ? ? fluticasone propionate (FLONASE) 50 mcg/actuation [place], Suspension 50 sprays by Each Nare route [...] channel digitized electroencephalogram was performed in the [facility] Clinical Neurophysiology Laboratory. The 10/20 international system of electrode placement was used and bipolar and referential electrode montages were recorded. ??In addition to EEG the patient was monitored for EKG and lateral/vertical eye movements. Video was recorded during the session. The duration of the recording was 25 minutes. SWIMMING POOL SERVICEPERSON'S REPORT: Performed by: SR Patient was not [...] Nathan Ortiz MD Clinical Neurophysiology Fellow Pager: [phone] 07/26/2019 Neurology Attending I have personally reviewed the EEG, and I agree with the details as written. ?? The above report was formulated in discussion with me at the time of EEG reading, and I agree with it as documented. Nigel Garcia MD [place] [address] Pager: [phone], #[phone] Email: [email or web address] Sumit Pineda MD NEUROLOGY ORDERABLES documented in this encounter Visit Diagnoses Diagnosis Cognitive and behavioral changes Other signs and symptoms involving cognition documented in this encounter Care Teams Bush Hog Operator Relationship Specialty Start Date End Date Luis E Narayan MD [facility] [address] [place] [address] PCP - General Family Medicine 03/26/19 01/19/22 documented as of this encounter
--- OUTSIDE RECORDS SUMMARY | 2024-04-13 15:51 | XMS_ITS | Encounter Summary ---
[place] [address] Care Team Providers Care Hydro Pneumatic Tester Name Role Phone Luis E Narayan MD Primary Care Provider Reason for Visit * Reason Onset Date Comments Medication Refill 09/04/2019 Encounter Details Date Type Department Care Team (Late st Contact Info) Description 09/04/2019 Refill Family Medicine at [facility] [address] [place] [address] Bonny Emanuel MD [address] [place] [address] Social History Tobacco Use Types Packs/Day Years [...] AM EDT Appointment Mammography/[place] [address] Rodney Padilla MD [address] [place] [place] [address] 05/01/2024 1:45 PM EDT Office [place] [address] Juanpablo Hernandez MD [facility] [place] [address] 05/23/2024 2:45 PM [facility] Clinical Support Family Medicine at [facility] [address] [place] [address] Julia Low, [facility] 01/30/2025 1:30 PM EDT Laboratory Appointment Lab at [facility] Hematology Oncology [address] [place] [address] 01/30/2025 3:[address] [place] [address] Arturo Cordero MD [facility] [place] [address] 01/30/2025 4:15 PM EDT Office Visit H[place]ology [place] [address] Arturo Cordero MD [facility] [address] [place] [address] documented as of this encounter Visit Diagnoses Not on filedocumented in this encounter Care Teams Hydro Pneumatic Tester Relationship Specialty Start Date End Date Luis E Narayan MD [facility] [address] [place] [address] PCP - General Family Medicine 03/26/19 01/19/22 documented as of this encounter
--- OUTSIDE RECORDS SUMMARY | 2024-04-13 15:51 | XMS_ITS | Encounter Summary ---
Author Organization Replaced By [facility] [place] [address] Care Team Providers Care Fitness Assistant Name Role Phone Luis E Narayan MD Primary Care Provider Reason for Referral * Psychiatric (Routine) - Specialty Diagnoses / Procedures Referred By Gonzalez kumari Referred To Contact Neuropsychology Diagnoses Cognitive and behavioral changes Amy Aguiar MD [facility] [place] [address] Referral ID Status Reason Start Date Expiration Date V isits Requested Visits Authorized [id number] Consult, Test & Treat 08/05/2019 02/01/2020 1 1 Encounter Details Date Type Department Care Team (Late st Contact Info) Description 08/05/2019 1:45 PM EST [place] [address] Alber Spann MD [facility] [place] [address] Amy Aguiar MD [facility] [place] [address] Cognitive and behavioral changes Social History Tobacco [...] sentences. Patient states she was taken to [facility] and it was initially thought that she is having a clot in her body and thus underwent echocardiograms, ultrasounds of her lower extremities and all were negative. 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 Patient states she [facility] stop steroids and gave her breathing treatments. 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 She states her [...] uses inhalerswith good effect ??? Atherosclerosis of [place] coronary artery of [place] heart with angina pectoris 10/09/2007 History of [...] 27.41) performed by Avila Medina MD at [facility] MAIN OR Medications: Current Outpatient Medications on File Prior to Visit Medication Sig Dispense Refill ??? fluticasone propionate (FLONASE) 50 mcg/actuation [place]asper, Suspension 1 spray by Each Nare route [...] and lateral aspects of feet Vibration via [employer] tuning fork (1-8): reduced at big toes [...] Zana Aguiar MD Clinical Neurophysiology Fellow Pager: [phone] 08/05/2019 CC: Luis E Narayan MD, Luis [...] - 08/05/2019 1:45 PM ESTAddended by: ALBER SPNAN on: 08/06/2019 04:09 PM Modules accepted: Level of Service documented in this encounter Plan of Treatment Upcoming Encounters Date Type Department Care Team (Late st Contact Info) Description 05/01/2024 11:20 AM EDT Appointment Mammography/[place] [address] Rodney Padilla MD [address] [facility] [place], [place] [id number] 05/01/2024 1:45 PM EDT Office [place] [phone] Juanpablo Hernandez MD [facility] [place] [address] 05/23/2024 2:45 PM EST Clinical Support Family Medicine at [facility] [address] [place] [address] Julia Low [facility] 01/30/2025 1:30 PM EDT Laboratory Appointment Lab at [facility] Hematology Oncology [address] [place] [address] 01/30/2025 3:[address] [place] [address] Arturo Cordero MD [facility] [address] [place] [address] 01/30/2025 4:15 PM EDT Office Visit Hematology [place] [address] Arturo Cordero MD [facility] [address] [place] [address] Scheduled Referrals Name Type Priority Associated Diagnoses Order Schedule Referral to Neuropsychology Outpatient Referral Routine Cognitive and behavioral changes Ordered: 08/05/2019 documented as of this encounter Procedures Procedure Name Priority Date/Time Associated Diagnosis Comments PARANEOPLASTIC AUTOANTIBODY EVAL, SERUM Routine 08/05/2019 3:34 PM EST HC H VITAMIN B6 Routine 08/05/2019 3:3 4 PM EST Cognitive and behavioral changes HC SERUM PROT. ELECTROPHORESIS Routine 08/05/2019 3:34 PM EST Cognitive and behavioral changes documented in this encounter Results * Paraneoplastic Autoantibody Eval, Serum (08/05/2019 3:34 PM EST) Paraneo Eval Interpretation SEE COMMENTS [facility] Comment: No informative autoantibodies were detected in the Paraneoplastic Evaluation. However, a negative result does not exclude neurological autoimmunity with or without associated neoplasia. Sensitivity and specificity of antibody testing are enhanced by testing both serum and CSF. Test Performed by: [place] [address] Radio Performer: Jose G Jefferson M.D. Ph.D.; CLIA# [id number] EDITA-1 (Anti-Neuronal Nuclear Ab, Type 1) (NOVEMBER) Negative <1:240 titer [facility] Comment: Test Performed by: [place] [address] Radio Performer: Jose G Jefferson M.D. Ph.D.; CLIA# [id number] EDITA-2 (Anti-Neuronal Nuclear Ab,Type 2) (NOVEMBER) Negative <1:240 titer [facility] Comment: ADDITIONAL INFORMATION This test was developed and its performance characteristics determined by [facility] in a manner consistent with CLIA requirements. This test has not been cleared or approved by the U.S. Food and Drug Administration. Test Performed by: [place] [address] Radio Performer: Jose G Jefferson M.D. Ph.D.; CLIA# [id number] EDITA-3 (Anti-Neuronal Nuclear Ab, Type 3) (NOVEMBER) Negative <1:240 titer [facility] Comment: ADDITIONAL INFORMATION This test was developed and its performance characteristics determined by [facility] in a manner consistent with CLIA requirements. This test has not been cleared or approved by the U.S. Food and Drug Administration. Test Performed by: [place] [address] Radio Performer: Jose G Jefferson M.D. Ph.D.; CLIA# [id number] AGNA-1 (Anti-Glial Nuclear Ab, Type 1) (NOVEMBER) Negative <1:240 titer [facility] Comment: ADDITIONAL INFORMATION This test was developed and its performance characteristics determined by [facility] in a manner consistent with CLIA requirements. This test has not been cleared or approved by the U.S. Food and Drug Administration. Test Performed by: [facility] [place] [address] Radio Performer: Jose G Jefferson M.D. Ph.D.; CLIA# [id number] CORSET MAKER-1 (Purkinje Cell Cytoplasmic Ab-Type 1) (NOVEMBER) Negative <1:240 titer [facility] Comment: ADDITIONAL INFORMATION This test was developed and its performance characteristics determined by [facility] in a manner consistent with CLIA requirements. This test has not been cleared or approved by the U.S. Food and Drug Administration. Test Performed by: [facility] [place] [address] Radio Performer: Jose G Jefferson M.D. Ph.D.; CLIA# [id number] CORSET MAKER-2 (Purkinje Cell Cytoplasmic Ab-Type 2) (NOVEMBER) Negative <1:240 titer [facility] Comment: ADDITIONAL INFORMATION This test was developed and its performance characteristics determined by [facility] in a manner consistent with CLIA requirements. This test has not been cleared or approved by the U.S. Food and Drug Administration. Test Performed by: [place] [address] Radio Performer: Jose G Jefferson M.D. Ph.D.; CLIA# [id number] CORSET MAKER-Type TR (Purkinje Cell Cytoplasmic Ab-Type Tr) (NOVEMBER) Negative <1:240 titer [facility] Comment: ADDITIONAL INFORMATION This test was developed and its performance characteristics determined by [facility] in a manner consistent with CLIA requirements. This test has not been cleared or approved by the U.S. Food and Drug Administration. Test Performed by: [place] [address] Radio Performer: Jose G Jefferson M.D. Ph.D.; CLIA# [id number] Amphiphysin Antibody (NOVEMBER) Negative <1:240 titer [facility] Comment: ADDITIONAL INFORMATION This test was developed and its performance characteristics determined by [facility] in a manner consistent with CLIA requirements. This test has not been cleared or approved by the U.S. Food and Drug Administration. Test Performed by: [place] [address] Radio Performer: Jose G Jefferson M.D. Ph.D.; CLIA# [id number] CRMP-5-IgG (NOVEMBER) Negative <1:240 titer [facility] Comment: ADDITIONAL INFORMATION This test was developed and its performance characteristics determined by [facility] in a manner consistent with CLIA requirements. This test has not been cleared or approved by the U.S. Food and Drug Administration. Test Performed by: [facility] [place] [address] Radio Performer: Jose G Jefferson M.D. Ph.D.; CLIA# [id number] Striated Muscle Ab Negative <1:120 titer [facility] Comment: ADDITIONAL INFORMATION This test was developed and its performance characteristics determined by [facility] in a manner consistent with CLIA requirements. This test has not been cleared or approved by the U.S. Food and Drug Administration. Test Performed by: [place] [address] Radio Performer: Jose G Jefferson M.D. Ph.D.; CLIA# [id number] P/Q-Type Ca Channel Ab (NOVEMBER) 0.00 <=0.02 nmol/L [facility] Comment: ADDITIONAL INFORMATION This test was developed and its performance characteristics determined by [facility] in a manner consistent with CLIA requirements. This test has not been cleared or approved by the U.S. Food and Drug Administration. Test Performed by: [facility] [place] [address] Radio Performer: Jose G Jefferson M.D. Ph.D.; CLIA# [id number] N-Type Ca Channel Ab 0.00 <=0.03 nmol/L [facility] Comment: ADDITIONAL INFORMATION This test was developed and its performance characteristics determined by [facility] in a manner consistent with CLIA requirements. This test has not been cleared or approved by the U.S. Food and Drug Administration. Test Performed by: [facility] [place] [address] Radio Performer: Jose G Jefferson M.D. Ph.D.; CLIA# [id number] AChR Gang Neuronal Ab 0.00 <=0.02 nmol/L [facility] Comment: ADDITIONAL INFORMATION This test was developed and its performance characteristics determined by [facility] in a manner consistent with CLIA requirements. This test has not been cleared or approved by the U.S. Food and Drug Administration. Test Performed by: [place] [address] Radio Performer: Jose G Jefferson M.D. Ph.D.; CLIA# [id number] Neuronal (V-G) K+ Channel Ab (NOVEMBER) 0.00 <=0.02 nmol/L [facility] Comment: ADDITIONAL INFORMATION This test was developed and its performance characteristics determined by [facility] in a manner consistent with CLIA requirements. This test has not been cleared or approved by the U.S. Food and Drug Administration. Test Performed by: [facility] [address] [address] Radio Performer: Jose G Jefferson M.D. Ph.D.; CLIA# [id number] Blood specimen (specimen) Venous Draw / Unknown 08/05/2019 3:34 PM EST 08/12/2019 9:21 AM EST Narrative Resulting Agency Comment Spec In Lab Amy Aguiar MD LAB SEND OUT ORD [employer] [facility] [place] [address] * Vitamin B6 (08/05/2019 3:34 PM EST) Pathologist [facility] Vitamin B6 (NOVEMBER) 5 5 - 50 mcg/L [facility] Comment: ADDITIONAL INFORMATION This test was developed and its performance characteristics determined by [facility] in a manner consistent with CLIA requirements. This test has not been cleared or approved by the U.S. Food and Drug Administration. Test Performed by: [facility] [address] [place] [address] Radio Performer: Jose G Jefferson M.D. Ph.D.; CLIA# [id number] Blood specimen (specimen) 08/05/2019 3:34 PM EST 08/05/2019 4:07 PM EST Narrative Resulting Agency Comment Spec In Lab Alber Spann MD LAB SEND OUT ORD ERABLES Performing Organization Address City/[facility]/ZIP Co de Phone Number [facility] [place] [address] * Protein Electrophoresis, serum (08/05/2019 3:34 PM EST) Total Prot Electrophoresis 6.6 6.1 - 8.0 gm/dL [facility] Albumin Electrophoresis 4.42 3.60 - 6.00 gm/dL [facility] Alpha 1 Globulin 0.17 0.10 - 0.30 gm/dL [facility] Alpha 2 Globulin 0.67 0.40 - 0.90 gm/dL [facility] Beta Globulin 0.70 0.50 - 1.00 gm/dL [facility] Gamma Globulin 0.65 0.50 - 1.30 gm/dL [facility] M1 Band None Detected None Detected [facility] Blood specimen (specimen) 08/05/2019 3:34 PM EST 08/05/2019 3:40 PM EST Narrative Resulting Agency Comment Spec In Lab Alber Spann MD CHEMISTRY ORDERA BLES Performing Organization Address [facility] Co de Phone Number [facility] [place] [address] documented in this encounter Visit Diagnoses Diagnosis Cognitive and behavioral changes Other signs and symptoms involving cognition documented in this encounter Care Teams Fitness Assistant Relationship Specialty Start Date End Date Luis E Narayan MD [facility] [address] [place] [address] PCP - General Family Medicine 03/26/19 01/19/22 documented as of this encounter
--- OUTSIDE RECORDS SUMMARY | 2024-04-13 15:51 | XMS_ITS | Encounter Summary ---
Author Organization [place] [address] Care Team Providers Care Product Test Specialist Name Role Phone Luis E Narayan MD Primary Care Provider Encounter Details Date Type Department Care Team (Late st Contact Info) Description 07/26/2019 E-Consult Obstetrics [place] [address] Ally Gruber MD [facility] DR OBSTETRICS [place] [address] Hx of dysplasia of cervix, low grade [...] 05/01/2024 11:20 AM EDT Appointment Mammography/[place] [address] Rodney Padilla MD [address] [place] [place] [address] 05/01/2024 1:45 PM EDT Office [place] [address] Juanpablo Hernandez MD [facility] [place] [address] 05/23/2024 2:45 PM EST Clinical Support Family Medicine at [facility] [address] [place] [address] Julia Low [facility] 01/30/2025 1:30 PM EDT Laboratory Appointment Lab at [facility] Hematology Oncology [address] [place] [address] 01/30/2025 3:[address] [place] [address] Arturo Cordero MD [facility] DR [place] [address] 01/30/2025 4:15 PM EDT Office Visit Hematology [place] [address] Arturo Cordero MD [facility] DR [place] [address] documented as of this encounter Visit Diagnoses Diagnosis Hx of dysplasia of cervix, low grade (VALENTINO 1) Mild dysplasia of cervix Family history of uterine cancer Family history of malignant neoplasm of genital organ, other documented in this encounter Care Teams Product Test Specialist Relationship Specialty Start Date End Date Luis E Narayan MD [facility] [address] [address] PCP - General Family Medicine 03/26/19 01/19/22 documented as of this encounter
--- OUTSIDE RECORDS SUMMARY | 2024-04-13 15:51 | XMS_ITS | Encounter Summary ---
[place] [address] Care Team Providers Care Bookkeeping Machine Mechanic Name Role Phone Luis E Narayan MD Primary Care Provider Encounter Details Date Type Department Care Team (Late st Contact Info) Description 07/18/2019 [place] [address] [facility] [place] [address] Social History Tobacco Use Types Packs/Day Years [...] 05/01/2024 11:20 AM EDT Appointment Mammography/[place] [address] Rodney Padilla MD [address] [place] [address] 05/01/2024 1:45 PM EDT Office Visit Ophthalmology at [place] [phone] [facility] [place] [address] 05/23/2024 2:45 PM EST Clinical Support Family Medicine at [facility] [address] [place] [address] Julia Low, [facility] 01/30/2025 1:30 PM EDT Laboratory Appointment Lab at [facility] Hematology Oncology [address] [place] [address] 01/30/2025 3:[address] [place] [address] [facility] DR [place]ATOLOGY [place] [address] 01/30/2025 4:15 PM EDT Office Visit Hematology [place] [address] [facility] DR [place]EMATOLOGY [place] [address] documented as of this encounter Visit Diagnoses Not on filedocumented in this encounter Care Teams Bookkeeping Machine Mechanic Relationship Specialty Start Date End Date Luis E Narayan MD [facility] [address] [address] PCP - General Family Medicine 03/26/19 01/19/22 documented as of this encounter
--- OUTSIDE RECORDS SUMMARY | 2024-04-13 15:51 | XMS_ITS | Encounter Summary ---
Author Organization [facility] [place] [address] Care Team Providers Care Crude Oil Treater Name Role Phone Luis E Narayan MD Primary Care Provider Reason for Visit * Reason Onset Date Comments Bumped Appointment 11/19/2019 Encounter Details Date Type Department Care Team (Late st Contact Info) Description 11/19/2019 [place] [address] Juanpablo Hernandez MD [facility] [place] [address] Bumped Appointment Social History Tobacco Use Types [...] 05/01/2024 11:20 AM EDT Appointment Mammography/[place] [phone] Rodney Padilla MD [address] [place] [address] 05/01/2024 1:45 PM EDT Office [place] [address] Juanpablo Hernandez MD [facility] [place] [address] 05/23/2024 2:45 PM EST Clinical Support Family Medicine at [facility] [address] [place] [address] Julia Low, [facility] 01/30/2025 1:30 PM EDT Laboratory Appointment Lab at [facility] Hematology Oncology [address] [place] [address] 01/30/2025 3:[address] [place] [address] Arturo Cordero MD [facility] DR HEMATOLOGY [place] [address] 01/30/2025 4:15 PM EDT Office Visit [place]ology [place] [address] Arturo Cordero MD [facility] DR HEMATOLOGY [place] [address] documented as of this encounter Visit Diagnoses Not on filedocumented in this encounter Care Teams Crude Oil Treater Relationship Specialty Start Date End Date Luis E Narayan MD [facility] [place] [address] PCP - General Family Medicine 03/26/19 01/19/22 documented as of this encounter
--- OUTSIDE RECORDS SUMMARY | 2024-04-13 15:51 | XMS_ITS | Encounter Summary ---
Author Organization [facility] Address [facility] [place] [address] Care Team Providers Care Computer Tester Name Role Phone Luis E Narayan MD Primary Care Provider [phone] Reason for Visit * Reason Comments Follow-up Encounter Details Date Type Department Care Team (Latest Contact Info) Description 08/05/2019 10:20 AM EST Office Visit Family Medicine at [facility] [address] [place] [address] Inocencia Grigsby MD [facility] [place] [address] Bipolar affective disorder in remission; Balance problem; [...] 05/01/2024 11:20 AM EDT Appointment Mammography/[place] [address] Rodney Padilla MD [address] [place] [address] 05/01/2024 1:45 PM EDT Office [place] [address] Juanpablo Hernandez MD [facility] [place] [address] 05/23/2024 2:45 PM EST Clinical Support Family Medicine at [facility] [address] [place] [address] Julia Low, [facility] 01/30/2025 1:30 PM EDT Laboratory Appointment Lab at [facility] [place]ology Oncology [address] [place] [address] 01/30/2025 3:[address] [place] [address] Arturo Cordero MD [facility] DR [place] [address] 01/30/2025 4:15 PM EDT Office Visit Hematology [place] [address] Arturo Cordero MD [facility] [address] [place] [address] documented as of this encounter Visit Diagnoses Diagnosis Bipolar affective disorder in remission Balance problem Other symptoms involving nervous and musculoskeletal systems Cognitive changes Other signs and symptoms involving cognition Cutaneous hypersensitivity Contact dermatitis and other eczema, due to unspecified cause documented in this encounter Care Teams Computer Tester Relationship Specialty Start Date End Date Luis E Narayan MD [facility] [address] [place] [address] PCP - General Family Medicine 03/26/19 01/19/22 documented as of this encounter
--- OUTSIDE RECORDS SUMMARY | 2024-04-13 15:51 | XMS_ITS | Encounter Summary ---
[place] [address] Care Team Providers Care Theatrical Rigger Name Role Phone Daryn Garrett MD Primary Care Provider Reason for Visit * Reason Onset Date Comments Medication Refill 08/01/2019 Encounter Details Date Type Department Care Team (Late st Contact Info) Description 08/01/2019 Refill Family Medicine at [facility] [address] [place] [address] Bonny Emanuel MD [address] [place] [address] Social History Tobacco Use Types Packs/Day Years [...] 05/01/2024 11:20 AM EDT Appointment Mammography/[place] [address] Rodney Padilla MD [address] [place] [place] [address] 05/01/2024 1:45 PM EDT [place] [address] Juanpablo Hernandez MD [facility] [address] 05/23/2024 2:45 PM [facility] Clinical Support Family Medicine at [facility] [address] [place] [address] Julia Low, [facility] 01/30/2025 1:30 PM EDT Laboratory Appointment Lab at [facility] [place]ematology Oncology [address] [place] [address] 01/30/2025 3:[address] [place] [place] [address] Arturo Cordero MD [facility] DR [place] [address] 01/30/2025 4:15 PM EDT Office Visit [place] [address] Arturo Cordero MD [facility] DR [place] [address] documented as of this encounter Visit Diagnoses Not on filedocumented in this encounter Care Teams Theatrical Rigger Relationship Specialty Start Date End Date Daryn Garrett MD [facility] [address] [place] [address] PCP - General 04/10/24 documented as of this encounter
--- OUTSIDE RECORDS SUMMARY | 2024-04-13 15:51 | XMS_ITS | Encounter Summary ---
Author Organization [facility]ly [facility] Address [facility] [place] [address] Care Team Providers Care Draw Hand Name Role Phone Luis E Narayan MD Primary Care Provider [phone]- [phone] Encounter Details Date Type Department Care Team (Late st Contact Info) Description 11/06/2019 11:30 AM EDT TH Visit (TeleHealth) Sleep Center at [facility] [address] [place] [address] Jhonny Morataya MD [facility] [place] [address] TITO (obstructive sleep apnea); Chronic insomnia; RLS [...] drive. If you get sleepy while driving hook puller and nap. You may resume driving once you feel alert. 11) Read No More Sleepless Nights by Mack Heaton PhD. 12) Dr Morataya will send a prescription to [facility] for a pressure increase. If you have problems with the pressure increase please let my office know at [phone] 13) Not getting enough sleep may lead [...] clinic office visit. yes Patient Location: At [facility] patient is located in at time of this visit: [place] Chief Complaint: Daytime tiredness HPI: Ms. [...] no change in treatment ?? Re-evaluation in [facility] 05/09/19 On CPAP still and [...] regularly in the past. Questionnaires: Patient-reported scores: [facility] 05/09/2019 [facility] 10 (High Risk) Insomnia Severity Index - [facility] 05/07/2019 05/09/2019 [facility] 7 10 (High Risk) Insomnia Severity Index 22 (Severe insomnia) - Daytime Symptoms: Naps: 2 x per week for up to 3 hrs Involuntary Dozing: no Driving: The patient does not report difficulty with sleepiness and driving anymore. [facility] sleep[facility]. No problems [...] Diagnosis Code ??? Coronary artery disease involving nome coronary artery of nome heart with angina pectoris I25.119 ??? Altered [...] 0 ??? fluticasone propionate (FLONASE) 50 mcg/actuation [place], Suspension 1 spray by Each Nare route [...] 11:20 AM EDT Appointment Mammography/[place] [address] Rodney Padilla MD [address] [place] [address] 05/01/2024 1:45 PM EDT Office [place] [phone] Juanpablo Hernandez MD [facility] DR OPHTHALMOLOGY [place], [place] [phone] 05/23/2024 2:45 PM EST Clinical Support [facility] Medicine at [facility] [address] [place] [address] Julia Low, [facility] 01/30/2025 1:30 PM EDT Laboratory Appointment Lab at [facility] Hematology Oncology [address] [place] [address] [id number] 01/30/2025 3:[address] [place] [address] Arturo Cordero MD [facility] DR HEMATOLOGY AND ONCOLOGY [place], [place] [phone] 01/30/2025 4:15 PM EDT Office Visit Hematology [place] [address] Arturo Cordero MD [facility] [place] [address] documented as of this encounter Visit Diagnoses Diagnosis TITO (obstructive sleep apnea) Obstructive sleep apnea (adult) (pediatric) Chronic insomnia Insomnia, unspecified RLS (restless legs syndrome) Restless legs syndrome (RLS) documented in this encounter Care Teams Draw Hand Relationship Specialty Start Date End Date Luis E Narayan MD [facility] [address] [place] [address] PCP - General Family Medicine 03/26/19 01/19/22 documented as of this encounter
--- OUTSIDE RECORDS SUMMARY | 2024-04-13 15:51 | XMS_ITS | Encounter Summary ---
[place] [address] Care Team Providers Care Medical Care Evaluation Specialist Name Role Phone Luis E Narayan MD Primary Care Provider [phone]- [phone] Encounter Details Date Type Department Care Team (Late st Contact Info) Description 01/03/2020 [place] [address] Aleisha York APRN [facility] [place] [address] Social History Tobacco Use Types Packs/Day Years [...] this morning. The Prior Auth number is [id number], effective today. We will get a fax to our office as well. [facility] regarding [facility]. Surgical date 06/28/2020, and first [...] 9:02 AM EDT To: Av[place] Medina MD, [facility] [place] [place] Urology Nurse, * Subject: ALIZE MANJARREZ [[id number]] ? Good morning, ALIZE MANJARREZ [[id number]] is currently scheduled for a CT Abdomen WWO Contrast on 01/13/2020. ??We have received notification from [employer] on behalf of [place] [employer] that our [...] a peer to peer review with the Skiing Instructor by calling [employer] at [phone] and using order # [id number] as reference. ??The deadline for completion of the peer to peer is 14 calendar days. ?? Please let me know if you'd like to change the procedure to the recommended alternative, a CT Abdomen W contrast, and I will call [employer] and to get it changed and approved. ?? To cancel or reschedule the patient's scan, please contact the radiology dept at [facility]. Thank you, Laura Orozco Clinical Authorization Services documented in this encounter Plan of Treatment Upcoming Encounters Date Type Department Care Team (Late st Contact Info) Description 05/01/2024 11:20 AM EDT Appointment Mammography/[place] [address] Rodney Padilla MD [address] [place] [address] 05/01/2024 1:45 PM EDT Office [place] [address] Juanpablo Hernandez MD [facility] DR [place] [address] 05/23/2024 2:45 PM EST Clinical Support Family Medicine at [facility] [address] [place] [address] [facility] 01/30/2025 1:30 PM EDT Laboratory Appointment Lab at [facility] Hematology Oncology [address] [place] [address] 01/30/2025 3:[address] [place] [address] Arturo Cordero MD [facility] DR HEMATOLOGY [place] [address] 01/30/2025 4:15 PM EDT Office Visit Hematology [place] [address] Arturo Cordero MD [facility] DR HEMATOLOGY [place] [address] documented as of this encounter Visit Diagnoses Not on filedocumented in this encounter Care Teams Medical Care Evaluation Specialist Relationship Specialty Start Date End Date Luis E Narayan MD [facility] [place] [address] PCP - General Family Medicine 03/26/19 01/19/22 documented as of this encounter
--- OUTSIDE RECORDS SUMMARY | 2024-04-13 15:51 | XMS_ITS | Encounter Summary ---
Author Organization Formerly [facility] [place] [address] Care Team Providers Care Eyeglass Frame Truer Name Role Phone Luis E Narayan MD Primary Care Provider Reason for Referral * Diagnostic Test (Routine) - Closed Specialty Diagnoses / Procedures Referred By Gonzalez kumari Referred To Contact Radiology Diagnoses Renal cancer, left Procedures CT Abdomen wwo Contrast Josseline Machado MD [facility] [place] [address] [facility] [place] [address] Referral ID Status Reason Start Date Expiration Date V isits Requested Visits Authorized [id number] Closed Specialty Service Requested 12/30/2019 06/27/2020 1 1 Reason for Visit * Reason Comments Follow-up Encounter Details Date Type Department Care Team (Late st Contact Info) Description 07/17/2019 10:20 AM EST [place] [address] Josseline Machado MD [facility] [place] [address] Renal cancer, left (Primary Dx) [...] - 07/17/2019 10:20 AM EST Patient Name: Patience Manjarrez Date of Service: 07/17/2019 Primary Care Provider: Luis E Narayan MD Reason for Visit: Patience Manjarrez is a 58 y.o. female who on had a Left robot assited partial nephrectomy for a [id number] Grade 3 clear cell cancer. All surgical margins were negative. Warm ischemia time was 16 minutes 45 seconds. Department of Pathology & Laboratory Medicine [place] [phone] , (Fax) [phone] Name: PATIENCE MANJARREZ Provider: JOSSELINE MACHADO Client: [facility] /Age/Sex: 1960 58 years Female Location: [facility]; [facility]; A Report ID: [id number] The signing pathologist has (i) examined the [...] present Tumor Block(s): A4 Normal Block(s): A10 [facility] August 2018 Annual Release SPECIFIED PARTS: A - Left renal mass and fat (partial nephrectomy): - Clear cell renal cell carcinoma (3.0 cm), ISUP Grade 3 of 4. - Margins negative for carcinoma. - See synoptic report for additional details and staging. Page 1 of 2 Name: PATIENCE MANJARREZ Report ID: [id number] The signing pathologist has (i) examined the relevant preparation(s) for the specimen(s); and rendered or confirmed the diagnosis(es). Pathology Report Collected: 06/28/2019 12:57 Received: 06/28/2019 13:20 DIAGNOSIS Electronically signed by: Christine Pierce MD Verified: 07/04/2019 Pathologist Performed at: -[facility] Dept. of Pathology, [place], [place] Following the surgery she did well [...] Cr 0.84, eGFR 76 Xrays: None Imp: [id number] Grade 3 Clear Cell renal cancer sp [...] 05/01/2024 11:20 AM EDT Appointment Mammography/[place] [address] Rodney Padilla MD [address] [place] [address] 05/01/2024 1:45 PM EDT Office [place] [address] Juanpablo Hernandez MD [facility] [place] [address] 05/23/2024 2:45 PM EST Clinical Support Family Medicine at [facility] [address] [place] [address] Julia Low RPH 01/30/2025 1:30 PM EDT Laboratory Appointment Lab at [facility] Hematology Oncology [address] [place] [address] 01/30/2025 3:[address] [place] [address] Arturo Cordero MD [facility] [place] [address] 01/30/2025 4:15 PM EDT Office Visit Hematology and Oncology at [facility] [place] [address] Arturo Cordero MD [facility] [place] [address] Scheduled Orders Name Type Priority Associated Diagnoses [...] the number below. Josseline Machado MD IMG CT ORDERABLES * XR Chest PA & [...] left documented in this encounter Care Teams Eyeglass Frame Truer Relationship Specialty Start Date End Date Luis E Narayan MD [facility] [place] [address] PCP - General Family Medicine 03/26/19 01/19/22 documented as of this encounter
--- OUTSIDE RECORDS SUMMARY | 2024-04-13 15:51 | XMS_ITS | Encounter Summary ---
Author Organization [facility] Address [place] [address] Care Team Providers Care Visual C Developer Name Role Phone Luis E Narayan MD Primary Care Provider Reason for Referral * E-Consultation (Routine) - Specialty Diagnoses / Procedures Referred By Gonzalez kumari Referred To Contact Gynecology Diagnoses Abnormal cervical Papanicolaou smear, unspecified abnormal pap finding Family history of uterine cancer Procedures eConsult to Gynecology (Primary Care Use Only) Luis E Narayan MD [facility] [address] [place] [address] Referral ID Status Reason Start Date Expiration Date V isits Requested Visits Authorized [id number] 07/25/2019 07/24/2020 1 1 Encounter Details Date Type Department Care Team (Late st Contact Info) Description 07/25/2019 Orders Only Family Medicine at [facility] [address] [place] [address] Luis E Narayan MD [facility] [address] [place] [address] Abnormal cervical Papanicolaou smear, unspecified abnormal pap [...] 05/01/2024 11:20 AM EDT Appointment Mammography/[place] [address] Rodney Padilla MD [address] [place] [address] 05/01/2024 1:45 PM EDT Office [place] [address] Juanpablo Hernandez MD [facility] [place] [address] 05/23/2024 2:45 PM EST Clinical Support Family Medicine at [facility] [address] [place] [address] Julia Low, [facility] 01/30/2025 1:30 PM EDT Laboratory Appointment Lab at [facility] Hematology Oncology [address] [place] [address] 01/30/2025 3:[address] [place] [address] Arturo Cordero MD [facility] DR HEMATOLOGY [place] [address] 01/30/2025 4:15 PM EDT Office Visit Hematology [place] [address] Arturo Cordero MD [facility] DR HEMATOLOGY [place] [address] documented as of this encounter Visit Diagnoses Diagnosis Abnormal cervical Papanicolaou smear, unspecified abnormal pap finding Family history of uterine cancer Family history of malignant neoplasm of genital organ, other documented in this encounter Care Teams Visual C Developer Relationship Specialty Start Date End Date Luis E Narayan MD [facility] DR [address]ALK[address] [address] PCP - General Family Medicine 03/26/19 01/19/22 documented as of this encounter
--- OUTSIDE RECORDS SUMMARY | 2024-04-13 15:51 | XMS_ITS | Encounter Summary ---
Author Organization [facility] [place] [address] Care Team Providers Care Drag Car Racer Name Role Phone Luis E Narayan MD Primary Care Provider Encounter Details Date Type Department Care Team (Late Contact Info) Description 07/02/2019 [place] [phone] Camilla Carrera MD [facility] [place] [address] Social History Tobacco Use Types Packs/Day Years [...] 05/01/2024 11:20 AM EDT Appointment Mammography/[place] [address] Rodney Padilla MD [address] [place] [address] 05/01/2024 1:45 PM EDT Office [place] [address] Juanpablo Hernandez MD [facility] [place] [address] 05/23/2024 2:45 PM EST Clinical Support Family Medicine at [facility] [address] [place] [address] Julia Low [facility] 01/30/2025 1:30 PM EDT Laboratory Appointment Lab at [facility] Hematology Oncology [address] [place] [address] [id number] 01/30/2025 3:[address] [place] [address] Arturo Cordero MD [facility] [place] [address] 01/30/2025 4:15 PM EDT Office Visit Hematology [place] [address] Arturo Cordero MD [facility] [place] [address] documented as of this encounter Visit Diagnoses Not on filedocumented in this encounter Care Teams Drag Car Racer Relationship Specialty Start Date End Date Luis E Narayan MD [facility] DR LILI WALKER-[facility] [place] [address] PCP - General Family Medicine 03/26/19 01/19/22 documented as of this encounter
--- OUTSIDE RECORDS SUMMARY | 2024-04-13 15:51 | XMS_ITS | Encounter Summary ---
[place] [address] Care Team Providers Care Loss Prevention Detective Name Role Phone Daryn Garrett MD Primary Care Provider Reason for Visit * Reason Onset Date Comments Medication Refill 09/28/2019 Encounter Details Date Type Department Care Team (Late st Contact Info) Description 09/28/2019 Refill Family Medicine at [facility] [address] [place] [address] Luis E Narayan MD [facility] [address] [place] [address] Social History Tobacco Use Types Packs/Day Years [...] 05/01/2024 11:20 AM EDT Appointment Mammography/[place] [address] Rodney Padilla MD [address] [place] [address] 05/01/2024 1:45 PM EDT Office [place] [address] Juanpablo Hernandez MD [facility] [place] [address] 05/23/2024 2:45 PM [facility] Clinical Support Family Medicine at [facility] [address] [place] [address] Julia Low, [facility] 01/30/2025 1:30 PM EDT Laboratory Appointment Lab at [facility] Hematology Oncology [address] [place] [address] 01/30/2025 3:[address] [place] [address] Arturo Crodero MD [facility] DR [place] [address] 01/30/2025 4:15 PM EDT Office Visit [place]ology [place] [address] Arturo Cordero MD [facility] [place] [address] documented as of this encounter Visit Diagnoses Not on filedocumented in this encounter Care Teams Loss Prevention Detective Relationship Specialty Start Date End Date Daryn Garrett MD [facility] [address] [place] [address] PCP - General 04/10/24 documented as of this encounter
--- OUTSIDE RECORDS SUMMARY | 2024-04-13 15:51 | XMS_ITS | Encounter Summary ---
Author Organization [facility] [place] [address] Care Team Providers Care Sign Artist Name Role Phone Luis E Narayan MD Primary Care Provider Encounter Details Date Type Department Care Team (Late st Contact Info) Description 10/23/2019 [place] [address] Amy Aguiar MD [facility] [place] [address] Social History Tobacco Use Types Packs/Day Years [...] 05/01/2024 11:20 AM EDT Appointment Mammography/[place] [address] Rodney Padilla MD [address] [place] [address] 05/01/2024 1:45 PM EDT Office [place] [address] Juanpablo Hernandez MD [facility] [place] [address] 05/23/2024 2:45 PM EST Clinical Support [facility] [address] [facility] [place] [address] Julia Low [facility] 01/30/2025 1:30 PM EDT Laboratory Appointment Lab at [facility] Hematology Oncology [address] [place] [address] 01/30/2025 3:[address] [place] [address] Arturo Cordero MD [facility] [place] [address] 01/30/2025 4:15 PM EDT Office Visit Hematology [place] [address] Arturo Cordero MD [facility] [place] [address] documented as of this encounter Visit Diagnoses Not on filedocumented in this encounter Care Teams Sign Artist Relationship Specialty Start Date End Date Luis E Narayan MD [facility] [address] [place] [address] PCP - General Family Medicine 03/26/19 01/19/22 documented as of this encounter
--- OUTSIDE RECORDS SUMMARY | 2024-04-13 15:51 | XMS_ITS | Encounter Summary ---
Author Organization Count Includes [facility] [place] [address] Care Team Providers Care Groundskeeping Yardman Name Role Phone Luis E Narayan MD Primary Care Provider Reason for Visit * Reason Onset Date Comments Appointment 12/03/2019 Encounter Details Date Type Department Care Team (Late st Contact Info) Description 12/03/2019 Telephone Family Medicine at [facility] [address] [place] [address] Idalmis Bang Appointment Social History Tobacco Use [...] 05/01/2024 11:20 AM EDT Appointment Mammography/[place] [address] Rodney Padilla MD [address] [place] [address] 05/01/2024 1:45 PM EDT Office [place] [address] Juanpablo Hernandez MD [facility] [place] [address] 05/23/2024 2:45 PM EST Clinical Support Family Medicine at [facility] [address] [place] [address] Julia Low [facility] 01/30/2025 1:30 PM EDT Laboratory Appointment Lab at [facility] Hematology Oncology [address] [place] [address] 01/30/2025 3:[address] [place] [address] Arturo Cordero MD [facility] DR HEMATOLOGY [place] [address] 01/30/2025 4:15 PM EDT Office Visit Hematology [place] [address] Arturo Cordero MD [facility] DR HEMATOLOGY [place] [address] documented as of this encounter Visit Diagnoses Not on filedocumented in this encounter Care Teams Groundskeeping Yardman Relationship Specialty Start Date End Date Luis E Narayan MD [facility] [place] [address] PCP - General Family Medicine 03/26/19 01/19/22 documented as of this encounter
--- OUTSIDE RECORDS SUMMARY | 2024-04-13 15:51 | XMS_ITS | Encounter Summary ---
Author Organization [facility] [place] [address] Care Team Providers Care Dynamics Ax Technical Architect Name Role Phone Luis E Narayan MD Primary Care Provider [phone] Reason for Visit * Reason Comments Follow-up Encounter Details Date Type Department Care Team (Late st Contact Info) Description 12/23/2019 8:15 AM EDT [place] [address] [facility] [place] [address] [facility] [place] [address] Cognitive and behavioral changes Social History Tobacco [...] sentences. Patient states she was taken to [facility] and it was initially thought that she is having a clot in her body and thus underwent echocardiograms, ultrasounds of her lower extremities and all were negative. 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 Patient states she [facility] stop steroids and gave her breathing treatments. 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 She states her [...] uses inhalerswith good effect ??? Atherosclerosis of [place] coronary artery of [place] heart with angina pectoris 10/09/2007 History of [...] 27.41) performed by Avila Medina MD at [facility] Medications: Current Outpatient Medications on [...] 0 ??? fluticasone propionate (FLONASE) 50 mcg/actuation [place], Suspension 1 spray by Each Nare route [...] and lateral aspects of feet Vibration via [employer] tuning fork (1-8): reduced at big toes [...] Amy Aguiar MD Clinical Neurophysiology Fellow Pager: [phone] 12/23/2019 documented in this encounter Plan of Treatment Upcoming Encounters Date Type Department Care Team (Late st Contact Info) Description 05/01/2024 11:20 AM EDT Appointment Mammography/[place] [phone] Rodney Padilla MD [address] [place] [address] 05/01/2024 1:45 PM EDT Office [place] [address] [facility] DR OPHTHALMOLOGY [place], [place] [phone] 05/23/2024 2:45 PM EST Clinical Support [facility] Medicine at [facility] [address] [place] [address] Julia Low, [facility] 01/30/2025 1:30 PM EDT Laboratory Appointment Lab at [facility] Hematology Oncology [address] [place] [address] [phone] 01/30/2025 3:[address] [place] [address] [facility] DR HEMATOLOGY AND ONCOLOGY [place], [place] [phone] 01/30/2025 4:15 PM EDT Office Visit Hematology [place] [address] [facility] HEMATOLOGY [place] [address] documented as of this encounter Visit Diagnoses Diagnosis Cognitive and behavioral changes Other signs and symptoms involving cognition documented in this encounter Care Teams Dynamics Ax Technical Architect Relationship Specialty Start Date End Date Luis E Narayan MD [facility] [address]-[place] [address] PCP - General Family Medicine 03/26/19 01/19/22 documented as of this encounter
--- OUTSIDE RECORDS SUMMARY | 2024-04-13 15:51 | XMS_ITS | Encounter Summary ---
[place] [address] Care Team Providers Care Door Framer Name Role Phone Luis E Narayan MD Primary Care Provider [phone] Encounter Details Date Type Department Care Team (Late Contact Info) Description 08/28/2019 Telephone Family Medicine at [facility] [address] [place] [address] Denisse López, RN Social History Tobacco Use [...] 05/01/2024 11:20 AM EDT Appointment Mammography/[place] [address] Rodney aPdilla MD [address] [place] [address] 05/01/2024 1:45 PM EDT Office [place] [address] Juanpablo Hernandez MD [facility] [place] [address] 05/23/2024 2:45 PM EST Clinical Support Family Medicine at [facility] [address] [place] [address] Julia Low [facility] 01/30/2025 1:30 PM EDT Laboratory Appointment Lab at [facility] Hematology Oncology [address] [place] [address] 01/30/2025 3:[address] [place] [phone] Arturo Cordero MD [facility] [place] [address] 01/30/2025 4:15 PM EDT Office Visit Hematology [place] [address] Arturo Cordero MD [facility] [place] [address] documented as of this encounter Visit Diagnoses Not on filedocumented in this encounter Care Teams Door Framer Relationship Specialty Start Date End Date Luis E Narayan MD [facility] [address] [place] [address] PCP - General Family Medicine 03/26/19 01/19/22 documented as of this encounter
--- OUTSIDE RECORDS SUMMARY | 2024-04-13 15:51 | XMS_ITS | Encounter Summary ---
Author Organization [facility] Address [place] [address] Care Team Providers Care Qa Intern Name Role Phone Luis E Narayan MD Primary Care Provider [phone] Encounter Details Date Type Department Care Team (Late st Contact Info) Description 01/13/2020 1:00 PM EDT [place] [address] Avila Medina MD [facility] [place] [address] Malignant neoplasm of kidney, unspecified laterality; Adrenal [...] Left robot assited partial nephrectomy for a [id number] Grade 3 clear cell cancer. All surgical [...] Diagnosis Code ??? Coronary artery disease involving [place] coronary artery of [place] heart with angina pectoris I25.119 ??? Altered [...] adenoma unchanged from prior imaging 03/19/2019. Imp: [id number] Grade 3 Clear Cell renal cancer sp [...] Pt and daughter content with plan. Aleisha Flyod APRN documented in this encounter Plan of Treatment Upcoming Encounters Date Type Department Care Team (Late st Contact Info) Description 05/01/2024 11:20 AM EDT Appointment Mammography/[place] [address] Rodney Padilla MD [address] [place] [address] 05/01/2024 1:45 PM EDT Office Visit Ophthalmology at [place] [phone] Juanpablo Hernandez MD [facility] [place] [address] 05/23/2024 2:45 PM EST Clinical Support Family Medicine at [facility] [address] [place] [phone] Julia Low [facility] 01/30/2025 1:30 PM EDT Laboratory Appointment Lab at [facility] [place]ematology Oncology [address] [place] [address] 01/30/2025 3:[address] [place] [phone] Arturo Cordero MD [facility] [place] [address] 01/30/2025 4:15 PM EDT Office Visit Hematology [place] [address] Arturo Cordero MD [facility] [place] [address] documented as of this encounter Visit Diagnoses Diagnosis Malignant neoplasm of kidney, unspecified laterality Adrenal mass Unspecified disorder of adrenal glands OAB (overactive bladder) Hypertonicity of bladder Anxiety Anxiety state, unspecified documented in this encounter Care Teams Qa Intern Relationship Specialty Start Date End Date Luis E Narayan MD [facility] DR [address] [place] [address] PCP - General Family Medicine 03/26/19 01/19/22 documented as of this encounter
--- OUTSIDE RECORDS SUMMARY | 2024-04-13 15:51 | XMS_ITS | Encounter Summary ---
Author Organization [facility] Address [facility] [place] [address] Care Team Providers Care Clock Smith Name Role Phone Daryn Garrett MD Primary Care Provider Reason for Visit * Reason Onset Date Comments Medication Refill 12/24/2019 Encounter Details Date Type Department Care Team (Late st Contact Info) Description 12/24/2019 Refill Family Medicine at [facility] [address] [place] [address] Luis E Narayan MD [facility] DR LIL[address] WALKER-[place] [address] Type 2 diabetes mellitus without long-term current [...] 05/01/2024 11:20 AM EDT Appointment Mammography/[place] [address] Rodney Padilla MD [address] [place] [address] 05/01/2024 1:45 PM EDT Office [place] [phone] Juanpablo Hernandez MD [facility] [place] [address] 05/23/2024 2:45 PM EST Clinical Support [facility] Medicine at [facility] [address] [place] [address] Julia Low, [facility] 01/30/2025 1:30 PM EDT Laboratory Appointment Lab at [facility] [place]ematology Oncology [address] [place] [address] 01/30/2025 3:[address] [place] [address] Arturo Cordero MD [facility] DR HEMATOLOGY [place] [address] 01/30/2025 4:15 PM EDT Office Visit H[place]ology [place] [address] Arturo Cordero MD [facility] DR HEMATOLOGY [place] [address] documented as of this encounter Results * Comprehensive metabolic panel (non-fasting) (01/13/2020 10:13 AM EDT) Glucose 156 65 - 199 mg/dL [facility] Comment:Diabetes: >=200 mg/d L plus symptoms Blood Urea Nitrogen 17 8 - 18 mg/dL [facility] Creatinine 0.86 0.70 - 1.20 mg/dL [facility] [...] questions. Chloride 105 98 - 107 mmol/L [facility] Carbon Dioxide 24 22 - 31 mmol/L [facility] Anion Gap 12 5 - 15 mmol/L [facility] Calcium 9.4 8.5 - 10.5 mg/dL [facility] Protein, Total 6.7 6.1 - 8.0 gm/dL [facility] Albumin 4.2 3.2 - 5.2 gm/dL [facility] Aspartate Aminotransferase 18 0 - 30 unit/L [facility] Alanine Aminotransferase 25 0 - 30 unit/L [facility] Alkaline Phosphatase 88 35 - 105 unit/L [facility] Bilirubin, Total 0.3 0.2 - 1.3 mg/dL [facility] Est Glomerular Filtration Rate 73 >=60 mL/min/1. 73 m?? [facility] Comment: The eGFR was calculated using the CKD-EPI equation. As with all creatinine based estimates of kidney function, eGFR values calculated with the CKD-EPI equation are not accurate in patients with acute kidney failure, extremes of body mass or the acutely ill. [email or web address] eGFR 85 >=60 mL/min/1. 73 m?? [facility] Comment: The eGFR was calculated using the CKD-EPI equation. As with all creatinine based estimates of kidney function, eGFR values calculated with the CKD-EPI equation are not accurate in patients with acute kidney failure, extremes of body mass or the acutely ill. [email or web address] Blood specimen (specimen) 01/13/2020 10:13 AM EDT 01/13/2020 10:22 AM EDT Narrative Resulting Agency Comment Spec In Lab Luis E Narayan MD CHEMISTRY ORDERABLE S [facility] [place] [address] * (ABNORMAL) Hemoglobin A1c (01/13/2020 10:13 AM EDT) Hemoglobin A1c 6.9(H) 4.3 - 5.6 % [facility] Comment: Reference Range: 4.3 [...] Mellitus, Diabetes Care 2013; 36: Suppl. 1, D15-40 Estimated Average Glucose 151 mg/dL [facility] Comment: eAG equivalents for HbA1c [...] into estimated average glucose values. ??Diabetes Care 2008:31(8):6058-9466. Blood specimen (specimen) 01/13/2020 10:13 AM EDT 01/13/2020 10:22 AM EDT Narrative Resulting Agency Comment Spec In Lab Luis E Narayan MD CHEMISTRY ORDERABLE S [facility] [place] [address] documented in this encounter Visit Diagnoses Diagnosis Type 2 diabetes mellitus without long-term current use of insulin documented in this encounter Care Teams Clock Smith Relationship Specialty Start Date End Date Daryn Garrett MD [facility] DR LIL[address] [place] [address] PCP - General 04/10/24 documented as of this encounter
--- OUTSIDE RECORDS SUMMARY | 2024-04-13 15:51 | XMS_ITS | Encounter Summary ---
[place] [address] Care Team Providers Care Cyber Security Specialist Name Role Phone Luis E Narayan MD Primary Care Provider [phone]- [phone] Encounter Details Date Type Department Care Team (Latest Contact Info) Description 07/17/2019 9:20 AM EST Laboratory Appointment Lab [address] [place] [address] Renal mass, left Social History Tobacco Use [...] 05/01/2024 11:20 AM EDT Appointment Mammography/[place] [address] Rodney Padilla MD [address] [place] [address] 05/01/2024 1:45 PM EDT Office [place] [address] Juanpablo Hernandez MD [facility] [place] [address] 05/23/2024 2:45 PM EST [facility] [address] [place] [phone] Julia Low [facility] 01/30/2025 1:30 PM EDT Laboratory Appointment Lab at [facility] Hematology Oncology [address] [place] [address] 01/30/2025 3:[address] [place] [address] Arturo Cordero MD [facility] DR HEMATOLOGY [place] [address] 01/30/2025 4:15 PM EDT Office Visit Hematology [place] [address] Arturo Cordero MD [facility] DR HEMATOLOGY [place] [address] documented as of this encounter Procedures Procedure Name Priority Date/Time Associated Diagnosis Comments HC VENIPUNCTURE Routine 07/17/2019 9:47 AM EST Renal mass, left documented in this encounter Results * Basic Metabolic Panel (non-fasting) (07/17/2019 9:47 AM EST) Glucose 131 65 - 199 mg/dL [facility] Comment:Diabetes: >=200 mg/d L plus symptoms Blood Urea Nitrogen 17 8 - 18 mg/dL [facility] Creatinine 0.84 0.70 - 1.20 mg/dL [facility] Sodium 140 135 - 145 mmol/L [facility] Potassium 4.5 3.5 - 5.0 mmol/L [facility] [...] 15 mmol/L [facility] Calcium 10.1 8.5 - 10.5 mg/dL [facility] Est Glomerular Filtration Rate 76 >=60 mL/min/1. 73 m?? [facility] Comment: The eGFR was calculated using the CKD-EPI equation. As with all creatinine based estimates of kidney function, eGFR values calculated with the CKD-EPI equation are not accurate in patients with acute kidney failure, extremes of body mass or the acutely ill. [email or web address] Media Hubnkf eGFR 88 >=60 mL/min/1. 73 m?? [facility] Comment: The eGFR was calculated using the CKD-EPI equation. As with all creatinine based estimates of kidney function, eGFR values calculated with the CKD-EPI equation are not accurate in patients with acute kidney failure, extremes of body mass or the acutely ill. [email or web address] Blood specimen (specimen) 07/17/2019 9:47 AM EST 07/17/2019 9:56 AM EST Narrative Resulting Agency Comment Spec In Lab Avila Medina MD CHEMISTRY ORDERABLES [facility] [place] [address] documented in this encounter Visit Diagnoses Diagnosis Renal mass, left Unspecified disorder of kidney and ureter documented in this encounter Care Teams Cyber Security Specialist Relationship Specialty Start Date End Date Luis E Narayan MD [facility] DR [address] WALKER[facility] [place] [phone] PCP - General Family Medicine 03/26/19 01/19/22 documented as of this encounter
--- OUTSIDE RECORDS SUMMARY | 2024-04-13 15:51 | XMS_ITS | Encounter Summary ---
Author Organization [facility] Address [facility] [place] [address] Care Team Providers Care Cargo Broker Name Role Phone Luis E Narayan MD Primary Care Provider Encounter Details Date Type Department Care Team (Late st Contact Info) Description 07/02/2019 [place] [address] Avila Medina MD [facility] [place] [address] Social History Tobacco Use Types Packs/Day Years [...] Bustos - 07/02/2019 9:51 AM EST PHONE: [phone] Pt is calling after discharge yesterday. She [...] 11:20 AM EDT Appointment Mammography/[place] [address] Rodney Padilla MD [address] [place] [address] 05/01/2024 1:45 PM EDT Office [place] [address] Juanpablo Hernandez MD [facility] [place] [place] [address] 05/23/2024 2:45 PM EST Clinical Support Family Medicine at [facility] [address] [place] [address] Julia Low, [facility] 01/30/2025 1:30 PM EDT Laboratory Appointment Lab at [facility] Hematology Oncology [address] [place] [address] 01/30/2025 3:[address] [place] [address] Arturo Cordero MD [facility] [place] [address] 01/30/2025 4:15 PM EDT Office Visit Hematology [place] [address] Arturo Cordero MD [facility] [place] [address] documented as of this encounter Visit Diagnoses Not on filedocumented in this encounter Care Teams Cargo Broker Relationship Specialty Start Date End Date Luis E Narayan MD [facility] DR [address] [place] [address] PCP - General Family Medicine 03/26/19 01/19/22 documented as of this encounter
--- OUTSIDE RECORDS SUMMARY | 2024-04-13 15:51 | XMS_ITS | Encounter Summary ---
Author Organization [facility] Address [facility] [place] [address] Care Team Providers Care Mining Captain Name Role Phone Luis E Narayan MD Primary Care Provider Reason for Visit * Consultation (Routine) - Closed Specialty Diagnoses / Procedures Referred By Gonzalez kumari Referred To Contact Sleep Center Diagnoses TITO (obstructive sleep apnea) Procedures PRG POLYLSOM 6+ YRS SLEEP W CPAP W 4+ ADDL ABHILASH Jhonny Garrett MD [facility] [place] [address] [facility] Sleep Medicine [address] [place] [address] Referral ID Status Reason Start Date Expiration Date V isits Requested Visits Authorized [id number] Closed Test Only 08/02/2019 01/30/2020 1 1 Encounter Details Date Type Department Care Team (Late st Contact Info) Description 08/13/2019 7:30 PM EST Procedure visit Sleep Center at [address] [place] [address] Jhonny Morataya MD [facility] [place] [address] TITO (obstructive sleep apnea) Social [...] Dr Morataya after 8 weeks on treatment. [facility] Sleep Disorders Center REPORT of Split-Night Polysomnography [...] 0.0 Hypopneas & RERAs Hypopnea Definitions: Hypopnea* [facility] Hypopnea AAS Central Hypopneas Hypopneas All RERA [...] Index (Total): 0.0 2.9 0.0 2.9 4.1 *[facility]-defined hypopneas include only hypopneas with a >=4% [...] 05/01/2024 11:20 AM EDT Appointment Mammography/[place] [address] Rodney Padilla MD [address] [facility] [place], [place] [phone] 05/01/2024 1:45 PM EDT Office [place] [address] Juanpablo Hernandez MD [facility] [place] [address] 05/23/2024 2:45 PM EST Clinical Support Family Medicine at [facility] [address] [place] [phone] Julia Low [place] 01/30/2025 1:30 PM EDT Laboratory Appointment Lab at [facility] Hematology Oncology [address] [place] [address] 01/30/2025 3:[address] [place] [address] Arturo Cordero MD [facility] DR HEMATOLOGY AND ONCOLOGY [place], [place] [address] 01/30/2025 4:15 PM EDT Office Visit Hematology [place] [address] Arturo Cordero MD [facility] [place] [address] documented as of this encounter Visit Diagnoses Diagnosis TITO (obstructive sleep apnea) Obstructive sleep apnea (adult) (pediatric) documented in this encounter Care Teams Mining Captain Relationship Specialty Start Date End Date Luis E Narayan MD [facility] [address] [place] [address] PCP - General Family Medicine 03/26/19 01/19/22 documented as of this encounter
--- OUTSIDE RECORDS SUMMARY | 2024-04-13 15:51 | XMS_ITS | Encounter Summary ---
Author Organization [facility] [place] [address] Care Team Providers Care Pantomimist Name Role Phone Luis E Narayan MD Primary Care Provider Reason for Visit * Auth/Cert Specialty Diagnoses / Procedures Referred By Gonzalez kumari Referred To Contact Diagnoses Renal Mass Procedures PRO LAP, PARTIAL NEPHRECTOMY LAPAROSCOPY, PARTIAL NEPHRECTOMY, ROBOTIC ASSIST (WRVU 27.41) MODIFIER ROBOT,DAVINCI XI Referral ID Status Reason Start Date Expiration Date Visits Re quested Visits Authorized [id number] 1 1 Encounter Details Date Type Department Care Team (Latest Contact Info) Description 06/28/2019 7:02 AM EST - 07/01/2019 4:46 PM [facility] Hospital Encounter [address] [place] [address] Avila Medina MD [facility] [address] Renal mass, left Discharge Disposition: Home Social [...] Hospital Course: Alize Gramajo was admitted to [facility] on 06/28/2019 through the Same Day Surgery [...] that part of your care. Urology Clinic: [phone] PCP: Luis E Narayan MD, . Please follow-up with your PCP in 1-2 weeks or sooner as needed. Scheduled Appointments: The following appointments have been scheduled on your behalf: Future Appointments and Orders Future Appointments and Orders Future Appointments Provider Department Dept Phone 07/09/2019 2:30 PM [facility] Neurodiagnostic at [facility] Arrive at: Production Tool Engineer Area [phone] 07/17/2019 9:20 AM LAB, THREE L Lab 3L [facility] Arrive at: Production Tool Engineer Area 07/17/2019 10:20 AM Avila Medina MD Urology at [facility] Arrive at: Production Tool Engineer Area 5B [phone] 07/22/2019 1:00 PM Luis E Narayan MD Primary Care at [facility] Arrive at: Production Tool Engineer 2 South [phone] 08/05/2019 1:45 PM Amy Aguiar MD Neurology at [facility] Arrive at: Production Tool Engineer Area [phone] 08/13/2019 7:30 PM SLEEP, PHYSICIAN Sleep Center at [facility] Arrive at: Production Tool Engineer [address] [place] [phone] Future Orders Complete By Expires Basic Metabolic [...] 07/09/2019 2:30 PM C-ELECTRONEURO, DIAGNOSTICS Neurodiagnostic at [facility] Arrive at: Production Tool Engineer Area [phone] 07/17/2019 9:20 AM LAB, THREE L Lab [address] [place] [address] Arrive at: [facility] Area [phone] 07/17/2019 10:20 AM Avila Medina MD Urology at [facility] Arrive at: [facility] Area [phone] 07/22/2019 1:00 PM Luis E Narayan MD Primary Care at [facility] Arrive at: Production Tool Engineer 2 [facility] [phone] 08/05/2019 1:45 PM Amy Aguiar MD Neurology at [facility] Arrive at: [facility] Area [phone] 08/13/2019 7:30 PM SLEEP, PHYSICIAN Sleep Center at [facility] Arrive at: Production Tool Engineer 1 [place] [phone] Future Orders Complete By Expires Basic Metabolic [...] managed by the Urologic Surgery Team at [facility]. If you have any questions or concerns, please feel free to contact us. Provider Contact Information: Urology Clinic: [phone] [facility] (after business hours): CC: Luis E Narayan [...] 07/09/2019 2:30 PM C-ELECTRONEURO, DIAGNOSTICS Neurodiagnostic at [facility] Arrive at: Production Tool Engineer Area 3C [phone] 07/17/2019 9:20 AM LAB, THREE L [facility] Arrive at: Production Tool Engineer Area 3L [phone] 07/17/2019 10:20 AM Avila Medina MD Urology at [facility] Arrive at: Production Tool Engineer Area 5B [phone] 07/22/2019 1:00 PM Luis E Narayan MD Primary Care at [facility] Arrive at: Production Tool Engineer 2 [facility] [phone] 08/05/2019 1:45 PM Amy Aguiar MD Neurology at [facility] Arrive at: Production Tool Engineer Area [phone] 08/13/2019 7:30 PM SLEEP, PHYSICIAN Sleep Center at [facility] Arrive at: Production Tool Engineer 1 [place] [phone] Future Orders Complete By Expires Basic Metabolic [...] 04/09/2019 06/22/2020 fluticasone propionate (FLONASE) 50 mcg/actuation Holderness, Suspension 50 sprays by Each Nare route [...] patient. Please page the Regional Anesthesia Team ([phone]) with any questions or concerns. ?? Continue current management per primary service. ?? Thank you for the opportunity to have participated in the care of this patient. Julissa Morris MD Regional Team pager [phone] * Camilla Carrera - 06/30/2019 12:02 PM EST Urology Inpatient Progress Note ID: Alize Gramajo is a 58 y.o. female with history of ASCVD ([place] with Stent 2007, on plavix), DM2, HTN, [...] rosario food. Resident paged - redirected this medical technical writer to someone else on urology team. [...] spec had hemolyzed/ Lab contacted by this medical technical writer at [phone] and new specimen has [...] 58 y.o. female with history of ASCVD ([place] with Stent 2007, on plavix), DM2, HTN, [...] Alize Gramajo 58 y.o. female with ASCVD ([place] w/ stents 11 years ago, on Plavix), DMII, HTN, Neuropathy, LUTS, with left cystic renal mass suspicious (Bosniak 3- 4) for a [id number] renal cancer who presents with robotic-assisted left [...] uses inhalerswith good effect ??? 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 fluticasone propionate (FLONASE) 50 mcg/actuation Holderness, Suspension 50 sprays by Each Nare route [...] Medina MD - 07/01/2019 3:45 PM EST [facility] Operative Note Patient Name: Alize Gramajo : [id number] MR#: [id number] Case Date: 06/28/2019 Surgeon: Surgeon(s) and Role: * Avila Medina MD - Primary * Juanpablo Helm MD - Resident Registered Nurse Hearing Aid Assembly Supervisor: Felisha Sher RN Preoperative diagnosis: renal mass [...] Info Order Time SPECIMEN TO PATHOLOGY OR09 [id number] renal mass Left renal mass and fat [...] additional robotic ports were placed and an botany laboratory assistant port, air seal was placed. Using [...] Admission order reviewed. Primary Insurance on file: [employer] [facility] Secondary Insurance on file: N/A Primary care provider on file: Luis E Narayan MD [phone] Advance Directive on file and Code Status: <no information>, Full Code Patient???s Functional Status: Independent using front wheel walker Living Situation: Home with support of family and friends [address] [facility] [address] Supports:Family and friends Assessment: Patient with no apparent RNCM/SW needs at this time. No housing, transportation, insurance, resources concerns identified at this time. Supports in place to achieve a safe post-hospital transition. No identified barriers to accessing necessary care and/or follow-up after discharge. Plan: Patient to d/c to Home via car when medically ready. commercial front load operator/Director Machine will continue to follow patient???s progress and remain available if situation changes for coordination of care, psychosocial support and/or discharge planning. Rani Emanuel RN Pager [phone] * Plan of Care - Allison Sánchez [...] meal coverage, correction doses administered/or held per [facility] order parameters in place. HR regular, [...] Operative Note Patient Name: Alizereinaldo Gramajo : [id number] MR#: [id number] Case Date: 06/28/2019 Surgeon: Surgeon(s) and Role: [...] Info Order Time SPECIMEN TO PATHOLOGY [id number] [id number] renal mass Left renal mass and fat [...] AM EDT Appointment Mammography/[place] [address] Rodney Padilla MD [address] [place] [address] 05/01/2024 1:45 PM EDT [place] [phone] Juanpablo Hernandez MD [facility] [place] [address] 05/23/2024 2:45 PM EST Clinical Support Family Medicine at [facility] [address] [phone] Julia Low RPH 01/30/2025 1:30 PM EDT Laboratory Appointment Lab at [facility] Hematology Oncology [address] [place] [address] 01/30/2025 3:[address] Scan at [facility] [place] [address] Arturo Cordero MD [facility] [place] [address] 01/30/2025 4:15 PM EDT Office Visit [place] [address] Arturo Cordero MD [facility] [place] [address] documented as of this encounter Procedures Procedure [...] AM EST Renal mass Lap, Partial Nephrectomy (17833) 06/28/2019 8:39 AM EST Renal mass POCT GLUCOSE Routine 06/28/2019 8:17 AM EST documented in this encounter Results * Basic Metabolic Panel (non-fasting) (07/17/2019 9:47 AM EST) Glucose 131 65 - 199 mg/dL [facility] Comment:Diabetes: >=200 mg/d L plus symptoms Blood Urea Nitrogen 17 8 - 18 mg/dL [facility] Creatinine 0.84 0.70 - 1.20 mg/dL [facility] Sodium 140 135 - 145 mmol/L [facility] Potassium 4.5 3.5 - 5.0 mmol/L [facility] Comment: Please note: ??Patients with WBC >100,000 may have falsely elevated Potassium levels. ??For accurate Potassium quantification in these patients send serum separator tube (gold top) for subsequent determinations. ??Contact the Clinical Chemistry Laboratory if there are any questions. Chloride 102 98 - 107 mmol/L [facility] Carbon Dioxide 28 22 - 31 mmol/L [facility] Anion Gap 10 5 - 15 mmol/L [facility] Calcium 10.1 8.5 - 10.5 mg/dL [facility] Est Glomerular Filtration Rate 76 >=60 mL/min/1. 73 m?? [facility] Comment: The eGFR was calculated using the CKD-EPI equation. As with all creatinine based estimates of kidney function, eGFR values calculated with the CKD-EPI equation are not accurate in patients with acute kidney failure, extremes of body mass or the acutely ill. [email or web address] eGFR 88 >=60 mL/min/1. 73 m?? [facility] Comment: The eGFR was calculated using the CKD-EPI equation. As with all creatinine based estimates of kidney function, eGFR values calculated with the CKD-EPI equation are not accurate in patients with acute kidney failure, extremes of body mass or the acutely ill. [email or web address] Blood specimen (specimen) 07/17/2019 9:47 AM EST 07/17/2019 9:56 AM EST Narrative Resulting Agency Comment Spec In Lab Avila Medina MD CHEMISTRY ORDERABLES [facility] [place] [address] * POCT Glucose (07/01/2019 12:01 PM EST) Glucose, POC 124 65 - 199 mg/dL [facility] Comment: Supplemental ranges: <140 mg/dL before meals <180 mg/dL all other times of the day Blood specimen (specimen) 07/01/2019 12:01 PM EST 07/01/2019 12:01 PM EST Avila Medina MD POINT OF CARE TEST O RDERABLES Performing Organization Address City/[facility]/ZIP Co de Phone Number [facility] [place] [address] * POCT Glucose (07/01/2019 7:28 AM EST) Glucose, POC 123 65 - 199 mg/dL [facility] Comment: Supplemental ranges: <140 mg/dL before meals <180 mg/dL all other times of the day Blood specimen (specimen) 07/01/2019 7:28 AM EST 07/01/2019 7:28 AM EST Avila Medina MD POINT OF CARE TEST O ULISES Performing Organization Address [facility]/ZIP Co de Phone Number [facility] [place] [place] [address] * POCT Glucose (06/30/2019 7:41 PM EST) Glucose, POC 120 65 - 199 mg/dL [facility] Comment: Supplemental ranges: <140 mg/dL before meals <180 mg/dL all other times of the day Blood specimen (specimen) 06/30/2019 7:41 PM EST 06/30/2019 7:41 PM EST Avila Medina MD POINT OF CARE TEST O ULISES Performing Organization Address City/[facility]/ZIP Co de Phone Number [facility] [place] [address] * POCT Glucose (06/30/2019 3:15 PM EST) Glucose, POC 131 65 - 199 mg/dL [facility] Comment: Supplemental ranges: <140 mg/dL before meals <180 mg/dL all other times of the day Blood specimen (specimen) 06/30/2019 3:15 PM EST 06/30/2019 3:15 PM EST Avila Medina MD POINT OF CARE TEST O DENISEERACELY Performing Organization Address City/[facility] Co de Phone Number [facility] [place] [address] * POCT Glucose (06/30/2019 11:52 AM EST) Glucose, POC 146 65 - 199 mg/dL [facility] Comment: Supplemental ranges: <140 mg/dL before meals <180 mg/dL all other times of the day Blood specimen (specimen) 06/30/2019 11:52 AM EST 06/30/2019 11:52 AM EST Avila Medina MD POINT OF CARE TEST O ULISES Performing Organization Address [facility] Co de Phone Number [facility] [place] [address] * POCT Glucose (06/30/2019 7:48 AM EST) Glucose, POC 131 65 - 199 mg/dL [facility] Comment: Supplemental ranges: <140 mg/dL before meals <180 mg/dL all other times of the day Blood specimen (specimen) 06/30/2019 7:48 AM EST 06/30/2019 7:48 AM EST Avila Medina MD POINT OF CARE TEST O DENISEERACELY Performing Organization Address [facility] Co de Phone Number [facility] [place] [address] * POCT Glucose (06/30/2019 3:26 AM EST) Glucose, POC 124 65 - 199 mg/dL [facility] Comment: Supplemental ranges: <140 mg/dL before meals <180 mg/dL all other times of the day Blood specimen (specimen) 06/30/2019 3:26 AM EST 06/30/2019 3:26 AM EST Avila Medina MD POINT OF CARE TEST O ULISES Performing Organization Address [facility] Co de Phone Number [facility] [place] [address] * POCT Glucose (06/29/2019 11:36 PM EST) Glucose, POC 153 65 - 199 mg/dL [facility] Comment: Supplemental ranges: <140 mg/dL before meals <180 mg/dL all other times of the day Blood specimen (specimen) 06/29/2019 11:36 PM EST 06/29/2019 11:36 PM EST Avila Medina MD POINT OF CARE TEST Junior MONTGOMERY Performing Organization Address [facility] Co de Phone Number [facility] [place] [address] * POCT Glucose (06/29/2019 3:36 PM EST) Glucose, POC 177 65 - 199 mg/dL [facility] Comment: Supplemental ranges: <140 mg/dL before meals <180 mg/dL all other times of the day Blood specimen (specimen) 06/29/2019 3:36 PM EST 06/29/2019 3:36 PM EST Avila Medina MD POINT OF CARE TEST O ULISES Performing Organization Address [facility] Co de Phone Number [facility] [place] [address] * POCT Glucose (06/29/2019 12:03 PM EST) Glucose, POC 138 65 - 199 mg/dL [facility] Comment: Supplemental ranges: <140 mg/dL before meals <180 mg/dL all other times of the day Blood specimen (specimen) 06/29/2019 12:03 PM EST 06/29/2019 12:03 PM EST Avila Medina MD POINT OF CARE TEST O RDERABLES Performing Organization Address [facility] Co de Phone Number [facility] [place] [address] * Creatinine Level Body Fluid YANDY Drain (06/29/2019 10:29 AM EST) Creatinine, Fluid 0.8 mg/dL [facility] Comment: No reference range is available for the specimen type submitted. ??The performance of this assay for the submitted type has not been validated and results should be interpreted accordingly and with regard to the patient's clinical status. Creat, Fld Type YANDY Drain [facility] YANDY Drain 06/29/2019 10:2 9 AM EST 06/29/2019 11:00 AM EST Narrative Resulting Agency Comment Spec In Lab Avila Medina MD BODY FLUIDS AND STOO LS ORDERABLES Performing Organization Address [facility] de Phone Number [facility] [place] [address] * POCT Glucose (06/29/2019 6:53 AM EST) Pathologist [facility] Glucose, POC 129 65 - 199 mg/dL [facility] Comment: Supplemental ranges: <140 mg/dL before meals <180 mg/dL all other times of the day Blood specimen (specimen) 06/29/2019 6:53 AM EST 06/29/2019 6:53 AM EST Avila Medina MD POINT OF CARE TEST O RDERABLES Performing Organization Address [facility] Co de Phone Number [facility] [place] [address] * (ABNORMAL) Differential, Automated (06/29/2019 2:57 AM EST) Neutrophil % 73.6 % [facility] Neutrophil Absolute 7.96(H) 1.70 - 6.10 x10(3)/mc L [facility] Lymph % 15.1 % [facility] Lymphocytes Abs 1.6 0.9 - 3.2 x10(3)/[facility] Monocyte % 9.2 % [facility] Monocyte Abs 1.0(H) 0.3 - 0.9 x10(3)/[facility] Eos % 1.2 % [facility] Eosinophils Abs 0.1 0.0 - 0.4 x10(3)/[facility] Basophil % 0.4 % [facility] Baso Absolute 0.0 0.0 - 0.1 x10(3)/[facility] Immature Gran % 0.50 % [facility] Comment: Immature granulocytes(IG's)percentage and absolute count will include metamyelocytes, myelocytes, and promyelocytes. Blood smears from CBCs yielding IG's will be scanned manually for concordance. If this scan disagrees with the automated IG or if promyelocytes are noted, a manual differential will be performed. Immature Gran Absolute 0.05(H) 0.00 - 0.04 x10(3)/[facility] Blood specimen (specimen) 06/29/2019 2:57 AM EST 06/29/2019 3:03 AM EST Narrative Resulting Agency Comment Spec In Lab Camilla Carrera MD HEMATOLOGY ORDERABLE S [facility] [place] [address] * (ABNORMAL) Hemogram (06/29/2019 2:57 AM EST) White Blood Cell 10.8(H) 4.0 - 9.5 x10(3)/[facility] Red Blood Cell 4.17 4.00 - 5.21 x10(6)/[facility] Hemoglobin 11.9 11.7 - 15.5 gm/dL [facility] Hematocrit 37.3 35.7 - 45.8 % [facility] Mean Cell Volume 89.4 82.6 - 94.4 fL [facility] Mean Cell Hemoglobin 28.5 27.1 - 32.0 pg [facility] Mean Cell Hemoglobin Concentration 31.9 31.7 - 35.0 gm/dL [facility] Platelet 277 145 - 357 x10(3)/mc L [facility] RDW Standard Deviation 47.2(H) 37.0 - 46.0 fL [facility] RDW coefficient of variation 14.4(H) 11.5 - 14.1 % [facility] Mean Platelet Volume 9.4 7.6 - 12.9 fL [facility] NRBC% auto 0.0 % [facility] NRBC Absolute 0.000 0.000 - 0.000 x10(3)/mc L [facility] Blood specimen (specimen) 06/29/2019 2:57 AM EST 06/29/2019 3:03 AM EST Narrative Resulting Agency Comment Spec In Lab Camilla Carrera MD HEMATOLOGY ORDERABLE S [facility] [place] [address] * (ABNORMAL) BMP w/fasting Glucose (06/29/2019 2:57 AM EST) Glucose Fasting 116(H) 65 - 99 mg/dL [facility] Comment: ?Fasting* Glucose Interpretive Criteria [...] of Diabetes Mellitus, Position Statement from the [place] [employer]. ??Diabetes Care, Volume 33, Supplement 1, Jul 2009 Blood Urea Nitrogen 10 8 - 18 mg/dL [facility] Creatinine 0.82 0.70 - 1.20 mg/dL [facility] Sodium 144 135 - 145 mmol/L [facility] [...] questions. Chloride 107 98 - 107 mmol/L [facility] Carbon Dioxide 26 22 - 31 mmol/L [facility] Anion Gap 11 5 - 15 mmol/L [facility] Calcium 8.9 8.5 - 10.5 mg/dL [facility] Est Glomerular Filtration Rate 78 >=60 mL/min/1. 73 m?? [facility] Comment: The eGFR was calculated using the CKD-EPI equation. As with all creatinine based estimates of kidney function, eGFR values calculated with the CKD-EPI equation are not accurate in patients with acute kidney failure, extremes of body mass or the acutely ill. [email or web address] eGFR 91 >=60 mL/min/1. 73 m?? [facility] Comment: The eGFR was calculated using the CKD-EPI equation. As with all creatinine based estimates of kidney function, eGFR values calculated with the CKD-EPI equation are not accurate in patients with acute kidney failure, extremes of body mass or the acutely ill. [email or web address] Blood specimen (specimen) 06/29/2019 2:57 AM EST 06/29/2019 3:03 AM EST Narrative Resulting Agency Comment Spec In Lab Avila Medina MD CHEMISTRY ORDERABLES [facility] [place] [address] * POCT Glucose (06/28/2019 9:57 PM EST) Glucose, POC 148 65 - 199 mg/dL [facility] Comment: Supplemental ranges: <140 mg/dL before meals <180 mg/dL all other times of the day Blood specimen (specimen) 06/28/2019 9:57 PM EST 06/28/2019 9:57 PM EST Avial Medina MD POINT OF CARE TEST O RDERABLES Performing Organization Address [facility] de Phone Number [facility] [place] [address] * Creatinine Level Body Fluid YANDY Drain (06/28/2019 9:49 PM EST) Creatinine, Fluid 1.0 mg/dL [facility] Comment: No reference range is available for the specimen type submitted. ??The performance of this assay for the submitted type has not been validated and results should be interpreted accordingly and with regard to the patient's clinical status. Creat, Fld Type YANDY Drain [facility] YANDY Drain 06/28/2019 9:49 PM EST 06/28/2019 10:09 PM EST Narrative Resulting Agency Comment Spec In Lab Avila Medina MD BODY FLUIDS AND STOO LS ORDERABLES Performing Organization Address [facility] de Phone Number [facility] [place] [address] * POCT Glucose (06/28/2019 4:13 PM EST) Glucose, POC 116 65 - 199 mg/dL [facility] Comment: Supplemental ranges: <140 mg/dL before meals <180 mg/dL all other times of the day Blood specimen (specimen) 06/28/2019 4:13 PM EST 06/28/2019 4:13 PM EST Avila Medina MD POINT OF CARE TEST O RDERABLES [facility] [place] [address] * (ABNORMAL) BMP w/fasting Glucose (06/28/2019 2:30 PM EST) Glucose Fasting 147(H) 65 - 99 mg/dL [facility] Comment: ?Fasting* Glucose Interpretive Criteria [...] of Diabetes Mellitus, Position Statement from the [place] [employer]. ??Diabetes Care, Volume 33, Supplement 1, Jul 2009 Blood Urea Nitrogen 10 8 - 18 mg/dL [facility] Creatinine 0.80 0.70 - 1.20 mg/dL [facility] Sodium 144 135 - 145 mmol/L [facility] Potassium 4.3 3.5 - 5.0 mmol/L [facility] Comment: Please note: ??Patients with WBC >100,000 may have falsely elevated Potassium levels. ??For accurate Potassium quantification in these patients send serum separator tube (gold top) for subsequent determinations. ??Contact the Clinical Chemistry Laboratory if there are any questions. Chloride 108(H) 98 - 107 mmol/L [facility] Carbon Dioxide 25 22 - 31 mmol/L [facility] Anion Gap 11 5 - 15 mmol/L [facility] Calcium 8.9 8.5 - 10.5 mg/dL [facility] Est Glomerular Filtration Rate 81 >=60 mL/min/1. 73 m?? [facility] Comment: The eGFR was calculated using the CKD-EPI equation. As with all creatinine based estimates of kidney function, eGFR values calculated with the CKD-EPI equation are not accurate in patients with acute kidney failure, extremes of body mass or the acutely ill. [email or web address] eGFR 94 >=60 mL/min/1. 73 m?? [facility] Comment: The eGFR was calculated using the CKD-EPI equation. As with all creatinine based estimates of kidney function, eGFR values calculated with the CKD-EPI equation are not accurate in patients with acute kidney failure, extremes of body mass or the acutely ill. [email or web address] Blood specimen (specimen) 06/28/2019 2:30 PM EST 06/28/2019 2:59 PM EST Narrative Resulting Agency Comment Spec In Lab Avila Medina MD CHEMISTRY ORDERABLES Performing Organization Address [facility] Co de Phone Number [facility] [place] [place] [address] * Hemoglobin and Hematocrit, blood (06/28/2019 2:30 PM EST) Hemoglobin 12.5 11.7 - 15.5 gm/dL [facility] Hematocrit 37.8 35.7 - 45.8 % [facility] Blood specimen (specimen) 06/28/2019 2:30 PM EST 06/28/2019 2:59 PM EST Narrative Resulting Agency Comment Spec In Lab Avila Medina MD HEMATOLOGY ORDERABLE S Performing Organization Address City/[facility]/ZIP Co de Phone Number [facility] [place] [address] * POCT Glucose (06/28/2019 2:05 PM EST) Glucose, POC 133 65 - 199 mg/dL [facility] Comment: Supplemental ranges: <140 mg/dL before meals <180 mg/dL all other times of the day Blood specimen (specimen) 06/28/2019 2:05 PM EST 06/28/2019 2:05 PM EST Avila Medina MD POINT OF CARE TEST O ULISES Performing Organization Address [facility] de Phone Number [facility] [place] [place] [address] * Specimen to Pathology (06/28/2019 12:59 PM EST) AP Specimen 06/28/2019 12:5 9 PM EST 06/28/2019 12:59 PM EST Narrative [facility] - 06/28/2019 12:59 PM EST Specimen requisition ordered. ??Separate Pathology report to follow Avila Medina MD PATHOLOGY/CYTOLOGY O ULISES Performing Organization Address [facility] de Phone Number [facility] [place] [place] [address] * Solid Tumor NGS Panel (06/28/2019 12:57 PM EST) Tissue specimen (specimen) 06/28/2019 12:57 PM EST 05/28/2020 1:28 PM EST Narrative Resulting Agency Comment Spec In Lab Avila Medina MD PATHOLOGY/CYTOLOGY O ULISES Performing Organization Address [facility] de Phone Number [facility] [place] [phone] * Surgical Pathology Report (06/28/2019 12:57 PM EST) Final Diagnosis [id number] ? Location: [facility]; [facility]; A The signing pathologist has (i) examined [...] ?? A4 Normal Block(s): ?? 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 ??- Margins negative for carcinoma. ??- See synoptic report for additional details and staging. Electronically signed by: ??Christine Pierce MD Verified: ??07/04/2019 ?Pathologist Performed at: ??-[facility] Dept. of Pathology, [place], [place] DISCUSSION Whole slide scan: [id number] A6-1 CLINICAL INFORMATION Specimen Submitted: A - [...] Inking: Parenchymal margin inked black. Sections/Processi ng: Street Contractor sections in 10 cassettes as follows: ?A1-A5: ??Tumor to closest margin ?A6: ??Tumor to fat ?A7-A8: ??Additional charter representative tumor ?A9: ??Lesion to normal kidney ?A10: ??Normal kidney ??[facility] 07/04/2019 11:12 AM EST [facility] SPECIMEN FROM KIDNEY / Unknown 06/28/2019 12:57 PM EST 06/28/2019 12:57 PM EST Avila Medina MD PATHOLOGY/CYTOLOGY O RDERABLES [facility] [place] [place] [address] * (ABNORMAL) BLOOD GAS 2 ARTERIAL (06/28/2019 11:13 AM EST) pH, Arterial 7.33(L) 7.35 - 7.45 [facility] PCO2, Arterial 51(H) 35 - 45 mmHg [facility] PO2, Arterial 198(H) 85 - 104 mmHg [facility] Bicarbonate, Arterial 26.8(H) 20.0 - 26.0 mmol/L [facility] Base Excess, Arterial 0.4 -3.0 - 3.0 mmol/L [facility] Hgb Blood Gas 13.4 11.7 - 15.5 gm/dL [facility] Oxyhemoglobin, Arterial 94.2 94.0 - 97.0 % [facility] Carboxyhemoglob in, Arterial 4.6 % [facility] Comment: Nonsmokers: 0.5-1.5% COHB Smokers: Variable, but usually less than 10% Toxic: 20-30% COHB Lethal: Greater than 60% COHB Methemoglobin, Arterial 0.3 <=1.5 % [facility] Na Whole Blood 140 135 - 145 mmol/L [facility] K Whole Blood 4.1 3.5 - 5.0 mmol/L [facility] Comment: Please note: Patients with WBC >100,000 may have falsely elevated Potassium levels. Contact the Clinical Chemistry Laboratory if there are any questions. ICa Whole Blood 1.18 1.15 - 1.33 mmol/L [facility] Comment: Note: ??Total bilirubin higher than 20 mg/dL may lead to falsely low ionized calcium. CL Whole Blood 108(H) 98 - 107 mmol/L [facility] Gluc Whole Bld 160 65 - 199 mg/dL [facility] Comment:Diabetes: >=200 mg/d L plus symptoms. Lactate WB 1.3 0.5 - 2.2 mmol/L [facility] FIO2 Art 56 % [facility] PF Ratio Art 354 [facility] Temp Art 35.3 Celsius [facility] Blood specimen (specimen) 06/28/2019 11:13 AM EST 06/28/2019 11:13 AM EST Avila Medina MD POINT OF CARE TEST O RDERABLES [facility] [place] [place] [address] * POCT Glucose (06/28/2019 8:17 AM EST) Glucose, POC 146 65 - 199 mg/dL [facility] Comment: Supplemental ranges: <140 mg/dL before meals <180 mg/dL all other times of the day Blood specimen (specimen) 06/28/2019 8:17 AM EST 06/28/2019 8:17 AM EST Avila Medina MD POINT [place] [address] documented in this encounter Visit Diagnoses Diagnosis [...] Nare, 2 TIMES DAILY PRN, Starting on Mon06/29/19 at 1700, Until 07/01/19 at 1846, Rhinitis, [...] 75 mg, Oral, DAILY, First dose on Mon06/29/19 at 0900, Until Discontinued, Routine Given 07/01/2019 [...] Nelson Tomlinson RN)1239 (Given - Provider: Allison Sánchez, VEDA)1740 (Given - Provider: Allison Sánchez, VEDA)2340 (Given - Provider: Nelson Tomlinson RN) 0531 [...] Wu RN) 08 (Given - Provider: Allison Sánchez, VEDA) 09 (Given - Provider: Yue Moore RN) [...] Routine 2139 (Given - Provider: Nelson Tomlinson, RN) 0533 (Given - Provider: Nelson Tomlinson, RN)1344 (Given - Provider: Allison Sánchez RN)2110 (Given - Provider: Nelson Tomlinson, RN) 0532 (Given - Provider: Nelson Tomlinson, RN)1429 (Given - Provider: Yue Moore, VEDA) insulin [...] Sánchez RN)1240 (Given - Provider: Allison Sánchez RN)1610 (Given - Provider: Allison Sánchez RN) 0925 [...] not met)1242 (Not Given - Provider: Yue oMore RN - Reason: Order parameters not met)1630 [...] 1010 (Given - Provider: Christine Wu RN) 08 (Given - Provider: Allison Sánchez RN) 0922 (Given - Provider: Yue Moore RN) losartan (Cozaar) tablet 100 mg 100 mg, Oral, DAILY, First dose on 06/29/19 at 0900, Until Discontinued, Routine 1012 (Given - Provider: Christine Wu RN) 08 (Given - Provider: Allison Sánchez RN) 09 (Given - Provider: Yue Moore RN) methyl salicylate-menthol (BENGAY) 15-10 % cream 1 each 1 each, Topical (Top), 2 TIMES DAILY, First dose on 06/29/19 at 2300, Until Discontinued 233 (Given - Provider: Nelson Tomlinosn RN - Comment: L/R neck & shoulders) 810 (Given - Provider: Allison Sánchez RN)2013 (Given - Provider: Nelson Tomlinson RN) 928 (Given - Provider: Yue Moore RN) metoprolol tartrate (Lopressor) tablet 12.5 mg 12.5 mg, Oral, EVERY 12 HOURS SCHEDULED (2 times per day), First dose (after last reorder) on 06/29/19 at 0900, Until Discontinued, Routine 1408 (Given - Provider: Christine Wu RN - Comment: Pt states this should be 25 Mg, MD confirmed 12.5 mg dose BID)2137 (Given - Provider: Nelson Tomlinson RN) 805 (Given - Provider: Allison Sánchez RN)2011 (Given - Provider: Nelson Tomlinson RN) 919 (Given - Provider: Yue Moore RN) nicotine (NICODERM CQ) 21 mg/24 hr patch 21 mg(Linked Group 3) 21 mg (1 patch), Transdermal, DAILY, First dose on Mon06/28/19 at 1845, Until Discontinued, Routine 0900 (Hold - Provider: Christine Wu RN - Reason: Patient/family refused) 0810 (Patch Applied - Provider: Allison Sánchez RN) 1019 (Patch Applied - Provider: Yue Moore, VEDA) nicotine (NICODERM CQ) 21 mg/24 hr patch Patch Removal(Linked Group 3) Transdermal, DAILY, First dose on Mon06/29/19 at 0900, Until Discontinued, Remove nicotine 21 mg/24 hr patch 09 (Hold - Provider: Christine Wu RN - [...] (dose and location) verified - Provider: Yue Moore, VEDA) pantoprazole EC (Protonix) tablet 20 mg 20 mg, Oral, DAILY, First dose on Mon06/29/19 at 0900, Until Discontinued 1012 (Given - Provider: Christine Wu RN) 0809 (Given - Provider: Allison Sánchez, VEDA) 0923 (Given - Provider: Yue Moore, VEDA) simvastatin (Zocor) tablet 10 mg 10 mg, Oral, DAILY, First dose on Mon06/28/19 at 1645, Until Discontinued 181 (Given - Provider: Carlota Rocha RN) 1631 (Given - Provider: Allison Sánchez, VEDA) sodium chloride 0.9 % (flush) flush 5 mL 5 mL, Intravenous, 2 TIMES DAILY, First dose on Mon06/28/19 at 2100, Until Discontinued, Recovery (Recovery-Hospital Unit), Routine 1013 (Given - Provider: Christine Wu, VEDA)2138 (Given - Provider: Nelson Tomlinson, VEDA) 0811 (Given - Provider: Allison Sánchez, VEDA)2011 (Given - Provider: Nelson Tomlinson, RN) 0930 (Given - Provider: Yue Moore RN) traZODone (Desyrel) tablet 100 mg 100 mg, Oral, NIGHTLY, First dose on Mon06/28/19 at 2100, Until Discontinued, Routine 2138 (Given - Provider: Nelson Tomlinson, RN) 2011 (Given - Provider: Nelson Tomlinson, VEDA) Continuous Medication Order 06/29/2019 06/30/2019 07/01/2019 sodium chloride 0.9% infusion (CANCELED) 100 mL/hr, Intravenous, CONTINUOUS, Starting on Mon06/28/19 at 1530, Until 06/29/19 at 0845 0242 (New Bag - Provider: Alize Bernard RN)0800 (Stopped - Provider: Christine Wu, VEDA) PRN [...] Nare, 2 TIMES DAILY PRN, Starting on Mon06/29/19 at 1700, Until Mon07/01/19 at 1846, Rhinitis, Allergies, Routine 1813 (Given - Provider: Carlota Rocha RN) 0948 [...] 30 minutes if pain not relieved., Routine 181 (Given - Provider: Carlota Rocha RN) HYDROmorphone [...] Christine Wu RN)1512 (Given - Provider: Christine Wu RN)2146 (Given - Provider: Nelson Tomlinson, VEDA) 0809 (Given - Provider: Allison Sánchez, VEDA)1240 (Given - Provider: Allison Sánchez RN)1641 (Given - Provider: Allison Sánchez RN) 0002 (Given - Provider: Nelson Tomlinson, VEDA) [...] Unit) 1057 (Given - Provider: Christine Wu, VEDA)8423 (See Alternative - Provider: Nelson Tomlinson, RN) 1240 (See Alternative - Provider: Allison Sánchez, RN) ondansetron (Zofran) tablet 4 mg(Linked Group 6) [...] 1057 (See Alternative - Provider: Christine Wu RN)8 (Given - Provider: Nelson Tomlinson, VEDA) 1240 (Given - Provider: Allison Sánchez, RN) polyethylene glycol (Miralax) packet 17 g 17 [...] Transdermal, EVERY 24 HOURS, First dose on Mon06/29/19 at 1030, Until Discontinued, Apply patch(es) for 12 hours, and then remove for 12 hours, Routine And lidocaine (LIDODERM) 5 %(700 mg/patch) Patch RemovalJump to med Transdermal, EVERY 24 HOURS, First dose on Mon06/29/19 at 2145, Until Discontinued, Remove lidocaine 5 [...] to med Transdermal, DAILY, First dose on Mon06/29/19 at [...] Routine documented in this encounter Care Teams Pantomimist Relationship Specialty Start Date End Date Luis E Narayan MD [facility] [address] [place] [address] PCP - General Family Medicine 03/26/19 01/19/22 documented as of this encounter
--- OUTSIDE RECORDS SUMMARY | 2024-04-13 15:52 | XMS_ITS | Encounter Summary ---
Author Organization [facility] [place] [address] Care Team Providers Care Sales Representative Name Role Phone Luis E Narayan MD Primary Care Provider [phone] Reason for Visit * Reason Onset Date Comments New Medication Request 06/13/2019 Encounter Details Date Type Department Care Team (Late st Contact Info) Description 06/13/2019 Telephone Family Medicine at [facility] [address] [place] [address] George Lorenzo New Medication Request Social History [...] Name & Location: [facility] - [address] Ask caller their first and last name and relationship to the patient: patient Best time to call back: any Ok to leave a message: yes Ok to send my- message: no ?? documented in this encounter Plan of Treatment Upcoming Encounters Date Type Department Care Team (Late st Contact Info) Description 05/01/2024 11:20 AM EDT Appointment Mammography/[place] [address] Rodney Padilla MD [address] [place] [place] [address] 05/01/2024 1:45 PM EDT Office [place] [address] Juanpablo Hernandez MD [facility] [place] [address] 05/23/2024 2:45 PM EST Clinical Support Family Medicine at [facility] [address] [place] [address] Julia Low, [facility] 01/30/2025 1:30 PM EDT Laboratory Appointment Lab at [facility] Hematology Oncology [address] [place] [address] 01/30/2025 3:[address] [place] [address] Arturo Cordero MD [facility] [address] HEMATOLOGY [place] [address] 01/30/2025 4:15 PM EDT Office Visit Hematology [place] [address] Arturo Cordero MD [facility] DR HEMATOLOGY AND ONCOLOGY [place], [place] [phone] documented as of this encounter Visit Diagnoses Not on filedocumented in this encounter Care Teams Sales Representative Relationship Specialty Start Date End Date Luis E Narayan MD [facility] [address] [place] [address] PCP - General Family Medicine 03/26/19 01/19/22 documented as of this encounter
--- OUTSIDE RECORDS SUMMARY | 2024-04-13 15:52 | XMS_ITS | Encounter Summary ---
Author Organization [place] [address] Care Team Providers Care Freight Solicitor Name Role Phone Luis E Narayan MD Primary Care Provider [phone] Reason for Referral * Diagnostic Test (Routine) - Closed Specialty Diagnoses / Procedures Referred By Contac t Referred To Contact Radiology Diagnoses Adrenal mass, left Renal mass, left Procedures MRI Abdomen wwo Contrast (Generic) Avila Medina MD [facility] [place] [address] [place] [address] Referral ID Status Reason Start Date Expiration Date V isits Requested Visits Authorized [id number] Closed Specialty Service Requested 04/24/2019 06/22/2019 1 1 Reason for Visit * Diagnostic Test (Routine) - Closed Specialty Diagnoses / Procedures Referred By Contac t Referred To Contact Radiology Diagnoses Adrenal mass, left Renal mass, left Procedures MRI Abdomen wwo Contrast (Generic) Avila Medina MD [facility] [place] [address] [place] [address] Referral ID Status Reason Start Date Expiration Date V isits Requested Visits Authorized [id number] Closed Specialty Service Requested 04/24/2019 06/22/2019 1 1 Encounter Details Date Type Department Care Team (Latest Contact Info) Description 05/02/2019 2:50 PM EDT - 05/02/2019 11:59 PM EDT Hospital Encounter MRI at [facility] [place] [address] Avila Medina MD [facility] [place] [address] Adrenal mass, left; Renal mass, left Discharge [...] 04/09/2019 06/21/2019 fluticasone propionate (FLONASE) 50 mcg/actuation Allred, Suspension 50 sprays by Each Nare route [...] 05/01/2024 11:20 AM EDT Appointment Mammography/[place] [address] Rodney Padilla MD [address] [place] [address] 05/01/2024 1:45 PM EDT Office Visit [place] [phone] Juanpablo Hernandez MD [facility] [place] [address] 05/23/2024 2:45 PM EST Clinical Support Family Medicine at [facility] [address] [place] [address] Julia Low [facility] 01/30/2025 1:30 PM EDT Laboratory Appointment Lab at [facility] Hematology Oncology [address] [place] [address] 01/30/2025 3:[address] [place] [phone] Arturo Cordero MD [facility] DR HEMATOLOGY [place] [address] 01/30/2025 4:15 PM EDT Office Visit Hematology [place] [address] Arturo Cordero MD [facility] DR HEMATOLOGY [place] [address] documented as of this encounter Procedures Procedure [...] number below. ? Electronically signed by: HIMANSHU Cuevas [facility] ([phone]), at 05/03/2019 9:33 AM Narrative 05/03/2019 9:33 AM EDT EXAMINATION: MRI [...] contact the number below. Avila Medina MD [facility] MRI ORDERABLES documented in this encounter Visit [...] mLs documented in this encounter Care Teams Freight Solicitor Relationship Specialty Start Date End Date Luis E Narayan MD [facility] [place] [address] PCP - General Family Medicine 03/26/19 01/19/22 documented as of this encounter
--- OUTSIDE RECORDS SUMMARY | 2024-04-13 15:52 | XMS_ITS | Encounter Summary ---
[place] [address] Care Team Providers Care Brake Repairer Bus Name Role Phone Luis E Narayan MD Primary Care Provider [phone] Encounter Details Date Type Department Care Team (Late st Contact Info) Description 05/03/2019 External [place] [address] Sumit Pineda MD [facility] [place] [address] Social History Tobacco Use Types Packs/Day Years [...] 05/01/2024 11:20 AM EDT Appointment Mammography/[place] [address] Rodney Padilla MD [address] [place] [address] 05/01/2024 1:45 PM EDT Office [place] [address] Juanpablo Hernandez MD [facility] [address] 05/23/2024 2:45 PM EST Clinical Support Family Medicine at [facility] [address] [place] [address] Julia Low, [facility] 01/30/2025 1:30 PM EDT Laboratory Appointment Lab at [facility] Hematology Oncology [address] [place] [address] 01/30/2025 3:[address] [place] [phone] Arturo Cordero MD [facility] [address] [place] [address] 01/30/2025 4:15 PM EDT Office Visit Hematology [place] [address] Arturo Cordero MD [facility] [address] [place] [address] documented as of this encounter Procedures Procedure Name Priority Date/Time Associated Diagnosis Comments EMG SCAN Routine 05/02/2019 documented in this encounter Results * Scan Doc: EMG (05/02/2019) Sumit Pineda MD MEDIA MGR SCAN EXT O RDR/RSLT documented in this encounter Visit Diagnoses Not on filedocumented in this encounter Care Teams Brake Repairer Bus Relationship Specialty Start Date End Date Luis E Narayan MD [facility] [address] [place] [address] PCP - General Family Medicine 03/26/19 01/19/22 documented as of this encounter
--- OUTSIDE RECORDS SUMMARY | 2024-04-13 15:52 | XMS_ITS | Encounter Summary ---
Author Organization [facility] Address [facility] [place] [address] Care Team Providers Care Dietitian Name Role Phone Luis E Narayan MD Primary Care Provider [phone] Reason for Visit * Reason Onset Date Comments Other 04/18/2019 Encounter Details Date Type Department Care Team (Late st Contact Info) Description 04/18/2019 Telephone Family Medicine at [facility] [address] [place] [address] Shayy Emanuel Other Social History Tobacco Use [...] Miscellaneous Notes * Telephone Encounter - Yolanda Macias RN - 04/18/2019 3:49 PM EDT Called pt and informed her that the paperwork has been faxed to [phone]. Pt was pleased with this. * Telephone [...] leave a message: y-detailed Ok to send [facility] message: y Offered Appointment: MA/Nurse/Vegetable Washer contacted via: Message: y Call: n Pager: n documented in this encounter Plan of Treatment Upcoming Encounters Date Type Department Care Team (Late st Contact Info) Description 05/01/2024 11:20 AM EDT Appointment Mammography/[place] [phone] Rodney Padilla MD [address] [place] [address] 05/01/2024 1:45 PM EDT Office [place] [address] Juanpablo Hernandez MD [facility] [place] [address] 05/23/2024 2:45 PM EST Clinical Support [facility] Medicine at [facility] [address] [place] [address] Julia Low [facility] 01/30/2025 1:30 PM EDT Laboratory Appointment Lab at [facility] Hematology Oncology [address] [place] [address] 01/30/2025 3:[address] [place] [address] Arturo Cordero MD [facility] DR [place] [address] 01/30/2025 4:15 PM EDT Office Visit [place]ology [place] [address] Arturo Cordero MD [facility] [place] [address] documented as of this encounter Visit Diagnoses Not on filedocumented in this encounter Care Teams Dietitian Relationship Specialty Start Date End Date Luis E Narayan MD [facility] [address] [place] [address] PCP - General Family Medicine 03/26/19 01/19/22 documented as of this encounter
--- OUTSIDE RECORDS SUMMARY | 2024-04-13 15:52 | XMS_ITS | Encounter Summary ---
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 H/O heart artery stent Procedures Echocardiogram Transthoracic([facility]) Luis E Narayan MD [facility] [address] [place] [address] [facility] [place] [address] Referral ID Status Reason Start Date Expiration Date V isits Requested Visits Authorized [id number] Closed Specialty Service Requested 06/25/2019 08/23/2019 1 1 Reason for Visit * Reason Comments Follow-up Encounter Details Date Type Department Care Team (Late st Contact Info) Description 06/21/2019 1:00 PM EST Office Visit Family Medicine at [facility] [address] [place] [address] Luis E Narayan MD [facility] DR [address] [place] [address] Type 2 diabetes mellitus without long-term current use of insulin; Healthcare maintenance; Peripheral edema; 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; H/O heart artery [...] never scheduled 4) Cardiac - has hx [place], stent x4 - has been having worsening [...] Assessment/Plan 30 minutes of this 45 minute [id number] visit were spent in discussion on the following topics: Diagnoses and all orders for this visit: Type 2 diabetes mellitus without long-term current use of insulin, uncontrolled last HA1c check butsuspect repeat today will be much better - U Albumin/Cre Ratio - Hemoglobin A1c; Future; Expected date: 06/21/2019 Healthcare maintenance - HIV Screen, 4th Generation ([facility]/CGP/APD); Future; Expected date: 06/21/2019 - Hepatitis C Antibody; Future; Expected date: 06/21/2019 Peripheral edema, CAD, heart artery stent x4 LCX - Echocardiogram Transthoracic([facility]); Future; Expected date: 06/21/2019 Will try to get this prior to surgery 06/28. Bipolar affective disorder in remission - refill lamoTRIgine (LAMICTAL) 25 mg Tablet; Take 3 tablets by mouth daily. Will also have Wildlife Refuge Manager check on EEG. Neurology in Jul as scheduled. Follow up with me in 4-6 weeks. documented in this encounter Plan of Treatment Upcoming Encounters Date Type Department Care Team (Late st Contact Info) Description 05/01/2024 11:20 AM EDT Appointment Mammography/[place] [phone] Rodney Padilla MD [address] [place] [address] 05/01/2024 1:45 PM EDT Office [place] [phone] Juanpablo Hernandez MD [facility] [place] [address] 05/23/2024 2:45 PM EST Clinical Support [facility] at [facility] [address] [place] [phone] Julia Low [facility] 01/30/2025 1:30 PM EDT Laboratory Appointment Lab at [facility] Hematology Oncology [address] [place] [address] 01/30/2025 3:[address] [place] [address] Arturo Cordero MD [facility] DR HEM[place] [address] 01/30/2025 4:15 PM EDT Office Visit H[place] [phone] Arturo Cordero MD [facility] DR HEMATOLOGY AND ONCOLOGY [place], [place] [phone] documented as of this encounter Procedures Procedure [...] COMPLETE (06/27/2019 11:38 AM EST) EF 71 HEART[employer] SYSTEM Anatomical Region Laterality Modality Other 06/27/2019 Narrative 06/27/2019 11:52 AM EST Procedure: ?Transthoracic Echocardiogram Patient: ?JOSSELINE Tran ?(Age): 1960(58y) Med Rec#: ? [id number] ?Sex: ?F ? Site Loc: ? [facility] ?Ht / Wt: ??158(cm)/101(kg) Pt. Loc: ?Echo Lab ?BSA: ?2.01 Study Date: ?? 06/27/2019 ?Pt. Type: Outpatient Tape: ? Referring: PIOTR Reading: Jeff Barraza ??([id number]) Dolphin Researcher: Sumit Ratliff, MONET Diagnosis: *Edema, unspecified (R60.9) *Atherosclerotic heart disease of tulalip coronary artery with unspecified angina pectoris (I25.119) [...] E-wave Vmax ?1 ?m/sec ? MV deceleration puzo144.5 ?msec ? MV A-wave Vmax ?1 ?m/sec [...] ? Mid-Inferior ?Normal ? Mid-Inferoseptal ?Normal ? Nova-Septal ? Normal ? Nova-Anterior ? Normal ? Nova-Lateral ?Normal ? Nova-Inferior ? Normal ? Nova-Tip ?Normal ? This report has been electronically signed by: Jeff Barraza MD ? 06/27/2019 11:51:50 Images reviewed and interpretation verified [facility] Cardiac Ultrasound Laboratory Procedure Note Jeff Barraza MD - 06/27/2019 Procedure: Transthoracic Echocardiogram Patient: JOSSELINE LOMAX(Age): 1960(58y) Med Rec#: [id number] Sex: F Site Loc: [facility] Ht / Wt: 158(cm)/101(kg) Pt. Loc: Echo Lab BSA: 2.01 Study Date: 06/27/2019 Pt. Type: Outpatient Tape: Referring: PIOTR Reading: Jeff Barraza ([id number]) Dolphin Researcher: Sumit Ratliff, [facility] Diagnosis: *Edema, unspecified (R60.9) *Atherosclerotic heart disease of tulalip coronary artery with unspecified angina pectoris (I25.119) [...] MV E-wave Vmax 1 m/sec MV deceleration [id number] msec MV A-wave Vmax 1 m/sec MV [...] Normal Mid-Posterolateral Normal Mid-Inferior Normal Mid-Inferoseptal Normal Nova-Septal Normal Nova-Anterior Normal Nova-Lateral Normal Nova-Inferior Normal Nova-Tip Normal This report has been electronically signed by: Jeff Barraza MD 06/27/2019 11:51:50 Images reviewed and interpretation verified [facility] Cardiac Ultrasound Laboratory Luis E Narayan MD ECHO ORDERABLES * (ABNORMAL) Hemoglobin A1c (06/21/2019 2:09 PM EST) Hemoglobin A1c 7.2(H) 4.3 - 5.6 % [facility] Comment: Reference Range: 4.3 - [...] Mellitus, Diabetes Care 2013; 36: Suppl. 1, W47-78 Estimated Average Glucose 161 mg/dL [facility] Comment: eAG equivalents for HbA1c [...] into estimated average glucose values. ??Diabetes Care 2008:31(8):6301-6220. Blood specimen (specimen) 06/21/2019 2:09 PM EST 06/21/2019 5:58 PM EST Narrative Resulting Agency Comment Spec In Lab Luis E Narayan MD CHEMISTRY ORDERABLE S [facility] [place] [address] * Hepatitis C Antibody (06/21/2019 2:09 PM EST) Hepatitis C Antibody Negative Negative [facility] Blood specimen (specimen) 06/21/2019 2:09 PM EST 06/21/2019 6:01 PM EST Narrative Resulting Agency Comment Spec In Lab Luis E Narayan MD CHEMISTRY ORDERABLE S Performing Organization Address City/[facility] Co de Phone Number [facility] [place] [address] * HIV Screen, 4th Generation ([facility]/CGP/APD) (06/21/2019 2:09 PM EST) Pathologist [facility] HIV Ab/Ag Screen Negative Negative [facility] Comment: This 4th Generation HIV [...] MD CHEMISTRY ORDERABLE S Performing Organization Address [facility]/ZIP Co de Phone Number [facility] [place] [address] * Urine Hold (06/21/2019 1:30 PM EST) Hold, Urine Sample in lab. [facility] Urine specimen (specimen) Urine / Unknown 06/21/2019 1:30 PM EST 06/21/2019 4:25 PM EST Luis E Narayna MD URINE ORDERABLES Performing Organization Address [facility]/ZIP Co de Phone Number [facility] [place] [address] * U Albumin/Cre Ratio (06/21/2019 1:30 PM EST) [facility] Albumin / Creatinin Ratio, Urine Not Calculated 0 - 29 mcg/mg Cr [facility] Comment: Reference Ranges: <30 mcg/mg: [...] 2, 357? 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 H/O heart artery stent x4 LCX Postsurgical percutaneous transluminal coronary angioplasty status Bipolar affective disorder in remission Peripheral edema Edema 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
--- OUTSIDE RECORDS SUMMARY | 2024-04-13 15:52 | XMS_ITS | Encounter Summary ---
[place] [address] Care Team Providers Care Bodybuilder Name Role Phone Luis E Narayan MD Primary Care Provider Encounter Details Date Type Department Care Team (Late st Contact Info) Description 06/21/2019 11:40 AM EST Clinical [place] [address] Renal mass Social History Tobacco Use Types [...] 11:20 AM EDT Appointment Mammography/[place] [phone] Rodney Padilla MD [address] [facility] [place] [address] 05/01/2024 1:45 PM EDT Office [place] [phone] Juanpablo Hernandez MD [facility] [place] [address] 05/23/2024 2:45 PM EST Clinical Support Family Medicine at [facility] [address] [place] [phone] Julia Low [facility] 01/30/2025 1:30 PM EDT Laboratory Appointment Lab at [facility] Hematology Oncology [address] [place] [address] 01/30/2025 3:[address] [place] [address] Arturo Cordero MD [facility] HEMATOLOGY [place] [address] 01/30/2025 4:15 PM EDT Office Visit Hematology [place] [address] Arturo Cordero MD [facility] DR HEMATOLOGY [place] [address] documented as of this encounter Procedures Procedure [...] tract infection, submit a new specimen. (A) [facility] Urine specimen obtained by clean catch procedure (specimen) 06/21/2019 12:06 PM EST 06/21/2019 12:28 PM EST Narrative Resulting Agency Comment Spec In Lab Avila Medina MD MICROBIOLOGY - GENER AL ORDERABLES [facility] [place] [address] * ABORH Recheck Status (06/21/2019 12:02 PM EST) ABORH Recheck Order Order Placed [facility] ABORH Type Recheck Complete [facility] Blood specimen (specimen) 06/21/2019 12:02 PM EST 06/21/2019 12:09 PM EST Narrative Resulting Agency Comment Spec In Lab Avila Medina MD BLOOD BANK LAB ORDER SHYLA [facility] [place] [address] * Antibody screen (06/21/2019 12:02 PM EST) Ab Screen Interp Negative [facility] Expires at [id number] on: 07/01/2019 [facility] Blood specimen (specimen) 06/21/2019 12:02 PM EST 06/21/2019 12:09 PM EST Narrative Resulting Agency Comment Spec In Lab Avila Medina MD BLOOD BANK LAB ORDER SHYLA Performing Organization Address City/[facility]/ZIP Co de Phone Number [facility] [place] [address] * ABO/Rh Typing (06/21/2019 12:02 PM EST) ABORH Type O Pos [facility] Blood specimen (specimen) 06/21/2019 12:02 PM EST 06/21/2019 12:09 PM EST Narrative Resulting Agency Comment Spec In Lab Avila Medina MD BLOOD BANK LAB ORDER SHYLA [facility] [place] [address] * (ABNORMAL) Differential, Automated (06/21/2019 12:02 PM EST) Neutrophil % 56.8 % [facility] Neutrophil Absolute 4.68 1.70 - 6.10 x10(3)/[facility] Lymph % 30.3 % [facility] Lymphocytes Abs 2.5 0.9 - 3.2 x10(3)/[facility] Monocyte % 5.2 % [facility] Monocyte Abs 0.4 0.3 - 0.9 x10(3)/[facility] Eos % 6.6 % [facility] Eosinophils Abs 0.5(H) 0.0 - 0.4 x10(3)/[facility] Basophil % 0.7 % [facility] Baso Absolute 0.1 0.0 - 0.1 x10(3)/[facility] Immature Gran % 0.40 % [facility] Comment: Immature granulocytes(IG's)percentage and absolute count will include metamyelocytes, myelocytes, and promyelocytes. Blood smears from CBCs yielding IG's will be scanned manually for concordance. If this scan disagrees with the automated IG or if promyelocytes are noted, a manual differential will be performed. Immature Gran Absolute 0.03 0.00 - 0.04 x10(3)/[facility] Blood specimen (specimen) 06/21/2019 12:02 PM EST 06/21/2019 12:12 PM EST Narrative Resulting Agency Comment Spec In Lab Avila Medina MD HEMATOLOGY ORDERABLE S [facility] [place] [address] * (ABNORMAL) Hemogram (06/21/2019 12:02 PM EST) White Blood Cell 8.2 4.0 - 9.5 x10(3)/[facility] Red Blood Cell 4.64 4.00 - 5.21 x10(6)/[facility] Hemoglobin 13.2 11.7 - 15.5 gm/dL [facility] Hematocrit 41.2 35.7 - 45.8 % [facility] Mean Cell Volume 88.8 82.6 - 94.4 fL [facility] Mean Cell Hemoglobin 28.4 27.1 - 32.0 pg [facility] Mean Cell Hemoglobin Concentration 32.0 31.7 - 35.0 gm/dL [facility] Platelet 359(H) 145 - 357 x10(3)/mc L [facility] RDW Standard Deviation 45.2 37.0 - 46.0 fL [facility] RDW coefficient of variation 14.0 11.5 - 14.1 % [facility] Mean Platelet Volume 9.5 7.6 - 12.9 fL [facility] NRBC% auto 0.0 % [facility] NRBC Absolute 0.000 0.000 - 0.000 x10(3)/mc L [facility] Blood specimen (specimen) 06/21/2019 12:02 PM EST 06/21/2019 12:12 PM EST Narrative Resulting Agency Comment Spec In Lab Avila Medina MD HEMATOLOGY ORDERABLE S [facility] [place] [address] * (ABNORMAL) Comprehensive metabolic panel (non-fasting) (06/21/2019 12:02 PM EST) Glucose 205(H) 65 - 199 mg/dL [facility] Comment:Diabetes: >=200 mg/d L plus symptoms Blood Urea Nitrogen 22(H) 8 - 18 mg/dL [facility] Creatinine 0.90 0.70 - 1.20 mg/dL [facility] Sodium 138 135 - 145 mmol/L [facility] Potassium 4.2 3.5 - 5.0 mmol/L [facility] Comment: Please note: ??Patients with WBC >100,000 may have falsely elevated Potassium levels. ??For accurate Potassium quantification in these patients send serum separator tube (gold top) for subsequent determinations. ??Contact the Clinical Chemistry Laboratory if there are any questions. Chloride 100 98 - 107 mmol/L [facility] Carbon Dioxide 27 22 - 31 mmol/L [facility] Anion Gap 11 5 - 15 mmol/L [facility] Calcium 9.6 8.5 - 10.5 mg/dL [facility] Protein, Total 7.1 6.1 - 8.0 gm/dL [facility] Albumin 4.1 3.2 - 5.2 gm/dL [facility] Aspartate Aminotransferase 34(H) 0 - 30 unit/L [facility] Alanine Aminotransferase 31(H) 0 - 30 unit/L [facility] Alkaline Phosphatase 86 35 - 105 unit/L [facility] Bilirubin, Total 0.3 0.2 - 1.3 mg/dL [facility] Est Glomerular Filtration Rate 70 >=60 mL/min/1. 73 m?? [facility] Comment: The eGFR was calculated using the CKD-EPI equation. As with all creatinine based estimates of kidney function, eGFR values calculated with the CKD-EPI equation are not accurate in patients with acute kidney failure, extremes of body mass or the acutely ill. [email or web address] eGFR 81 >=60 mL/min/1. 73 m?? [facility] Comment: The eGFR was calculated using the CKD-EPI equation. As with all creatinine based estimates of kidney function, eGFR values calculated with the CKD-EPI equation are not accurate in patients with acute kidney failure, extremes of body mass or the acutely ill. [email or web address] Blood specimen (specimen) 06/21/2019 12:02 PM EST 06/21/2019 12:12 PM EST Narrative Resulting Agency Comment Spec In Lab Avila Medina MD CHEMISTRY ORDERABLES [facility] [place] [address] documented in this encounter Visit Diagnoses Diagnosis Renal mass Unspecified disorder of kidney and ureter documented in this encounter Care Teams Bodybuilder Relationship Specialty Start Date End Date Luis E Narayan MD [facility] DR [address] [facility] [address] PCP - General Family Medicine 03/26/19 01/19/22 documented as of this encounter
--- OUTSIDE RECORDS SUMMARY | 2024-04-13 15:52 | XMS_ITS | Encounter Summary ---
Author Organization [facility] [place] [address] Care Team Providers Care Provider Network Mgr Name Role Phone Luis E Narayan MD Primary Care Provider +1- [phone] Reason for Referral * Psychiatric (Routine) - Specialty Diagnoses / Procedures Referred By Gonzalez kumari Referred To Contact Psychiatry Diagnoses Cognitive and behavioral changes Procedures PRO NEUROPSYCHOLOGICAL TEST EVAL PHYS/QHP 1ST HOUR PRO NEUROPSYCHOLOGICAL TEST EVAL PHYS/QHP EA ADDL HR TC PSYCL/NRPSYCL LOADING UNIT OPERATOR CRIMPING 2+ TEST 1ST 30 MIN TC PSYCL/NRPSYCL LOADING UNIT OPERATOR CRIMPING 2+ TEST EA ADDL 30 MIN Amy Aguiar MD [facility] [place] [address] [facility] [address] [place] [address] Referral ID Status Reason Start Date Expiration Date V isits Requested Visits Authorized [id number] Consult, Test & Treat 05/02/2019 05/01/2021 1 1 Reason for Visit * Consultation (Urgent) - Closed Specialty Diagnoses / Procedures Referred By Gonzalez kumari Referred To Contact Neurology Diagnoses Generalized weakness Elpidio Pinedo IV, MD [facility] [place] [address] [facility] [address] [place] [phone] Referral ID Status Reason Start Date Expiration Date V isits Requested Visits Authorized [id number] Closed Consult, Test & Treat 03/26/2019 03/25/2020 1 1 Encounter Details Date Type Department Care Team (Late st Contact Info) Description 05/02/2019 9:00 AM EDT Procedure [place] [address] Sumit Pineda MD [facility] [place] [address] Amy Aguiar MD [facility] [place] [address] Cognitive and behavioral changes Social History Tobacco [...] sentences. Patient states she was taken to [facility] and it was initially thought that she is having a clot in her body and thus underwent echocardiograms, ultrasounds of her lower extremities and all were negative. 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 She states her [...] Medical History: Diagnosis Date ??? Atherosclerosis of [place] coronary artery of [place] heart with angina pectoris 10/09/2007 History of [...] 3 ??? fluticasone propionate (FLONASE) 50 mcg/actuation [place], Suspension 50 sprays by Each Nare route [...] and lateral aspects of feet Vibration via [employer] tuning fork (1-8): reduced at big toes [...] Edwin Aguiar MD Clinical Neurophysiology Fellow Pager: [phone] 05/02/2019 CC: Luis E Narayan MD, Luis [...] 05/01/2024 11:20 AM EDT Appointment Mammography/[place] [address] Rodney Padilla MD [address] [place] [address] 05/01/2024 1:45 PM EDT Office [place] [address] Juanpablo Hernandez MD [facility] [place] [address] 05/23/2024 2:45 PM EST Clinical Support Family Medicine at [facility] [address] [place] [address] Julia Low, [facility] 01/30/2025 1:30 PM EDT Laboratory Appointment Lab at [facility] Hematology Oncology [address] [place] [address] 01/30/2025 3:[address] [place] [address] Arturo Cordero MD [facility] [place] [address] 01/30/2025 4:15 PM EDT Office Visit Hematology [place] [address] Arturo Cordero MD [facility] [place] [address] Scheduled Referrals Name Type Priority Associated Diagnoses Order Schedule Referral to Neuropsychology Outpatient Referral Routine Cognitive and behavioral changes Ordered: 05/02/2019 documented as of this encounter Results * EEG awake, asleep, drowsy, routine (07/25/2019 3:00 PM EST) Narrative Nigel Garcia MD - 07/25/2019 3:00 PM EST Nigel Garcia MD ? 07/28/2019 10:59 PM [facility] Department of Neurology Outpatient EEG Report Name [...] ? ? fluticasone propionate (FLONASE) 50 mcg/actuation [place], Suspension 50 sprays by Each Nare route [...] channel digitized electroencephalogram was performed in the [facility] Clinical Neurophysiology Laboratory. The 10/20 international system of electrode placement was used and bipolar and referential electrode montages were recorded. ??In addition to EEG the patient was monitored for EKG and lateral/vertical eye movements. Video was recorded during the session. The duration of the recording was 25 minutes. GLOBAL REGULATORY LEAD'S REPORT: Performed by: SR Patient was not [...] Nathan Ortiz MD Clinical Neurophysiology Fellow Pager: [phone] 07/26/2019 Neurology Attending I have personally reviewed the EEG, and I agree with the details as written. ?? The above report was formulated in discussion with me at the time of EEG reading, and I agree with it as documented. Nigel Garcia MD [place] [address] Pager: [phone], #[phone] Email: [email or web address] Sumit Pineda MD NEUROLOGY ORDERABLES * Vitamin B1, whole blood (05/02/2019 11:15 AM EDT) Pathologist [facility] Vit B1 Lvl Wb (NOVEMBER) 173 70 - 180 nmol/L [facility] Comment: ADDITIONAL INFORMATION This test was developed and its performance characteristics determined by [facility] in a manner consistent with CLIA requirements. This test has not been cleared or approved by the U.S. Food and Drug Administration. Test Performed by: [facility] [address] [place] [address] Blanchard Grinder Operator: Jose G Jefferson M.D. Ph.D.; CLIA# [id number] Blood specimen (specimen) 05/02/2019 11:15 AM EDT 05/02/2019 1:43 PM EDT Narrative Resulting Agency Comment Spec In Lab Sumit Pineda MD LAB SEND OUT ORDERAB LES [facility] [place] [id number] * Protein Electrophoresis, serum (05/02/2019 11:15 AM EDT) [facility] Total Prot Electrophoresis 6.5 6.1 - 8.0 gm/dL [facility] Albumin Electrophoresis 4.17 3.60 - 6.00 gm/dL [facility] Alpha 1 Globulin 0.19 0.10 - 0.30 gm/dL [facility] Alpha 2 Globulin 0.65 0.40 - 0.90 gm/dL [facility] Beta Globulin 0.71 0.50 - 1.00 gm/dL [facility] Gamma Globulin 0.79 0.50 - 1.30 gm/dL [facility] M1 Band None Detected None Detected [facility] Blood specimen (specimen) 05/02/2019 11:15 AM EDT 05/02/2019 11:24 AM EDT Narrative Resulting Agency Comment Spec In Lab Sumit Pineda MD CHEMISTRY ORDERABLES [facility] [place] [address] documented in this encounter Visit Diagnoses Diagnosis Cognitive and behavioral changes Other signs and symptoms involving cognition Cognitive and behavioral changes Other signs and symptoms involving cognition documented in this encounter Care Teams Provider Network Mgr Relationship Specialty Start Date End Date Luis E Narayan MD [facility] DR [place] [address] PCP - General Family Medicine 03/26/19 01/19/22 documented as of this encounter
--- OUTSIDE RECORDS SUMMARY | 2024-04-13 15:52 | XMS_ITS | Encounter Summary ---
[place] [address] Care Team Providers Care Foot Gatherer Name Role Phone Luis E Narayan MD Primary Care Provider +1- [phone] Reason for Visit * Reason Onset Date Comments Referral 06/03/2019 Encounter Details Date Type Department Care Team (Late st Contact Info) Description 06/03/2019 Telephone Family Medicine at [facility] [address] [place] [address] Yue Kwok Referral Social History Tobacco Use [...] is requesting phone calls for this patient's Data Migration Consultant Pharmacist referral. documented in this encounter Plan of Treatment Upcoming Encounters Date Type Department Care Team (Late st Contact Info) Description 05/01/2024 11:20 AM EDT Appointment Mammography/[place] [address] Rodney Padilla MD [address] [place] [address] 05/01/2024 1:45 PM EDT Office [place] [address] Juanpablo Hernandez MD [facility] [place] [address] 05/23/2024 2:45 PM EST Clinical Support Family Medicine at [facility] [address] [place] [address] Julia Low [facility] 01/30/2025 1:30 PM EDT Laboratory Appointment Lab at [facility] Hematology Oncology [address] [place] [address] 01/30/2025 3:[address] [place] [address] Arturo Cordero MD [facility] DR HEMATOLOG[place] [address] 01/30/2025 4:15 PM EDT Office Visit Hematology [place] [address] Arturo Cordero MD [facility] DR HEMATOLOG[place] [address] documented as of this encounter Visit Diagnoses Not on filedocumented in this encounter Care Teams Foot Gatherer Relationship Specialty Start Date End Date Luis E Narayan MD [facility] DR LILI [place] [address] PCP - General Family Medicine 03/26/19 01/19/22 documented as of this encounter
--- OUTSIDE RECORDS SUMMARY | 2024-04-13 15:52 | XMS_ITS | Encounter Summary ---
[place] [address] Care Team Providers Care Bindery Supervisor Name Role Phone Luis E Narayan MD Primary Care Provider +1- [phone] Encounter Details Date Type Department Care Team (Late st Contact Info) Description 04/30/2019 [place] [address] Ru Leon, RN Social History [...] 05/01/2024 11:20 AM EDT Appointment Mammography/[place] [address] Rodney Padilla MD [address] [place] [address] 05/01/2024 1:45 PM EDT Office [place] [address] Juanpablo Hernandez MD [facility] [place] [address] 05/23/2024 2:45 PM EST Clinical Support Family Medicine at [facility] [address] [address] Julia Low, [facility] 01/30/2025 1:30 PM EDT Laboratory Appointment Lab at [facility] Hematology Oncology [address] [place] [address] 01/30/2025 3:[address] [place] [address] Arturo Cordero MD [facility] DR HEMATOLOGY [place] [address] 01/30/2025 4:15 PM EDT Office Visit Hematology [place] [address] Arturo Cordero MD [facility] HEMATOLOGY [place] [address] documented as of this encounter Visit Diagnoses Not on filedocumented in this encounter Care Teams Bindery Supervisor Relationship Specialty Start Date End Date Luis E Narayan MD [facility] DR LIL[address] AZEV[address]-[place] [address] PCP - General Family Medicine 03/26/19 01/19/22 documented as of this encounter
--- OUTSIDE RECORDS SUMMARY | 2024-04-13 15:52 | XMS_ITS | Encounter Summary ---
Author Organization [facility] [place] [address] Care Team Providers Care Crystal Mounter Name Role Phone Luis E Narayan MD Primary Care Provider +1- [phone] Encounter Details Date Type Department Care Team (Late st Contact Info) Description 04/15/2019 [place] [address] Avila Meidna MD [facility] [place] [address] Social History Tobacco Use Types Packs/Day Years [...] AM EDT Appointment Mammography/[place] [address] Rodney Padilla MD [address] [place] [address] 05/01/2024 1:45 PM EDT [place] [address] Juanpablo Hernandez MD [facility] DR [place]TH[place] [address] 05/23/2024 2:45 PM EST Clinical Support Family Medicine at [facility] [address] [place] [address] Julia Low, [facility] 01/30/2025 1:30 PM EDT Laboratory Appointment Lab at [facility] Hematology Oncology [address] [place] [address] 01/30/2025 3:[address] [place] [place] [address] Arturo Cordero MD [facility] DR HEMATOLOGY AND [place] [address] 01/30/2025 4:15 PM EDT Office Visit H[place]ology [place] [address] Arturo Cordero MD [facility] DR HEMATOLOGY AND [place] [address] documented as of this encounter Visit Diagnoses Not on filedocumented in this encounter Care Teams Crystal Mounter Relationship Specialty Start Date End Date Luis E Narayan MD [facility] DR LILI [facility]EVEDO-[place] [address] PCP - General Family Medicine 03/26/19 01/19/22 documented as of this encounter
--- OUTSIDE RECORDS SUMMARY | 2024-04-13 15:52 | XMS_ITS | Encounter Summary ---
Author Organization [facility] [place] [address] Care Team Providers Care Air Duct Mechanic Name Role Phone Luis E Narayan MD Primary Care Provider Encounter Details Date Type Department Care Team (Late st Contact Info) Description 04/12/2019 Telephone Family Medicine at [facility] [address] [place] [address] Denisse López RN Social History Tobacco Use [...] about disability paperwork left at appointment, this marine underwriter will look for and follow up. Patient [...] 05/01/2024 11:20 AM EDT Appointment Mammography/[place] [address] Rodney Padilla MD [address] [place] [place] [address] 05/01/2024 1:45 PM EDT Office [place] [address] Juanpablo Hernandez MD [facility] [place] [address] 05/23/2024 2:45 PM EST Clinical Support Family Medicine at [facility] [address] [place] [address] Julia Low [facility] 01/30/2025 1:30 PM EDT Laboratory Appointment Lab at [facility] Hematology Oncology [address] [place] [address] 01/30/2025 3:[address] [place] [address] Arturo Cordero MD [facility] DR HEMATOLOGY AND ONCOLOGY [place], [place] [address] 01/30/2025 4:15 PM EDT Office Visit Hematology [place] [address] Arturo Cordero MD [facility] [place]ATOLOG[place] [address] documented as of this encounter Visit Diagnoses Not on filedocumented in this encounter Care Teams Air Duct Mechanic Relationship Specialty Start Date End Date Luis E Narayan MD [facility] [address] [place] [address] PCP - General Family Medicine 03/26/19 01/19/22 documented as of this encounter
--- OUTSIDE RECORDS SUMMARY | 2024-04-13 15:52 | XMS_ITS | Encounter Summary ---
Author Organization [facility] [place] [address] Care Team Providers Care Physicist Nuclear Name Role Phone Luis E Narayan MD Primary Care Provider +1- [phone] Encounter Details Date Type Department Care Team (Latest Contact Info) Description 05/27/2019 1:57 PM EST - 05/27/2019 11:59 PM EST Hospital Encounter Mammography/[place] [address] Luis E Narayan MD [facility] [address] LIL[address] [place] [address] Healthcare maintenance Discharge Disposition: Home Social History [...] 04/09/2019 06/21/2019 fluticasone propionate (FLONASE) 50 mcg/actuation [place], Suspension 50 sprays by Each Nare route [...] 05/01/2024 11:20 AM EDT Appointment Mammography/[place] [address] Rodney Padilla MD [address] [place] [place] [address] 05/01/2024 1:45 PM EDT Office [place] [address] Juanpablo Hernandez MD [facility] [place] [address] 05/23/2024 2:45 PM EST Clinical Support Family Medicine at [facility] [address] [place] [address] Julia Low [facility] 01/30/2025 1:30 PM EDT Laboratory Appointment Lab at [facility] Hematology Oncology [address] [place] [address] 01/30/2025 3:[address] [place] [address] Arturo Cordero MD [facility] DR [place] [address] 01/30/2025 4:15 PM EDT Office Visit Hematology [place] [address] Arturo Cordero MD [facility] DR [place] [address] documented as of this encounter Procedures Procedure [...] facility documented in this encounter Care Teams Physicist Nuclear Relationship Specialty Start Date End Date Luis E Narayan MD [facility] DR LIL[address] [place] [address] PCP - General Family Medicine 03/26/19 01/19/22 documented as of this encounter
--- OUTSIDE RECORDS SUMMARY | 2024-04-13 15:52 | XMS_ITS | Encounter Summary ---
[place] [address] Care Team Providers Care Artist Mannequin Coloring Name Role Phone Luis E Narayan MD Primary Care Provider Encounter Details Date Type Department Care Team (Late Contact Info) Description 04/15/2019 [place] [address] Ru Leon, RN Social History [...] with Alize and she will got to [facility] for Metabolic lab testing. Orders faxed, dexamethazone ( 1 mg) Prescribed, and instructions mailed. All questions addressed at this time she will call withany further questions or concerns. documented in this encounter Plan of Treatment Upcoming Encounters Date Type Department Care Team (Late Contact Info) Description 05/01/2024 11:20 AM EDT Appointment Mammography/[place] [address] Rodney Padilla MD [address] [place] [address] 05/01/2024 1:45 PM EDT Office [place] [address] Juanpablo Hernandez MD [facility] [place] [address] 05/23/2024 2:45 PM EST Clinical Support Family Medicine at [facility] [address] [place] [address] Julia Low [facility] 01/30/2025 1:30 PM EDT Laboratory Appointment Lab at [facility] [place] Oncology [address] [place] [address] 01/30/2025 3:[address] [place] [place] [address] Arturo Cordero MD [facility] DR [place] [address] 01/30/2025 4:15 PM EDT Office Visit [place]ematology [place] [address] Arturo Cordero MD [facility] [address] [place] [address] documented as of this encounter Visit Diagnoses Not on filedocumented in this encounter Care Teams Artist Mannequin Coloring Relationship Specialty Start Date End Date Luis E Narayan MD [facility] DR LILI [facility]ALKER[facility] [place] [address] PCP - General Family Medicine 03/26/19 01/19/22 documented as of this encounter
--- OUTSIDE RECORDS SUMMARY | 2024-04-13 15:52 | XMS_ITS | Encounter Summary ---
Author Organization [facility] Address [facility] [place] [address] Care Team Providers Care Core Composer Feeder Name Role Phone Luis E Narayan MD Primary Care Provider [phone] Encounter Details Date Type Department Care Team (Late st Contact Info) Description 05/09/2019 Orders Only Sleep Center at [facility] [address] [place] [address] Jhonny Morataya MD [facility] [place] [address] Social History Tobacco Use Types Packs/Day Years [...] Medical History: Diagnosis Date ??? Atherosclerosis of [place] coronary artery of [place] heart with angina pectoris 10/09/2007 History of [...] 05/01/2024 11:20 AM EDT Appointment Mammography/[place] [address] Rodney Padilla MD [address] [place] [address] 05/01/2024 1:45 PM EDT Office [place] [address] Juanpablo Hernandez MD [facility] [place] [address] 05/23/2024 2:45 PM EST Clinical Support Family Medicine at [address] [place] [address] Julia Low [facility] 01/30/2025 1:30 PM EDT Laboratory Appointment Lab at [facility] Hematology Oncology [address] [place] [address] 01/30/2025 3:[address] [place] [address] Arturo Cordero MD [facility] DR [place] [address] 01/30/2025 4:15 PM EDT Office Visit Hematology [place] [address] Arturo Cordero MD [facility] DR [place] [address] documented as of this encounter Visit Diagnoses Not on filedocumented in this encounter Care Teams Core Composer Feeder Relationship Specialty Start Date End Date Luis E Narayan MD [facility] DR LIL[address] [place] [address] PCP - General Family Medicine 03/26/19 01/19/22 documented as of this encounter
--- OUTSIDE RECORDS SUMMARY | 2024-04-13 15:52 | XMS_ITS | Encounter Summary ---
Author Organization Count Includes [facility] [place] [address] Care Team Providers Care Facing Machine Operator Name Role Phone Luis E Narayan MD Primary Care Provider [phone]- [phone] Reason for Visit * Reason Onset Date Comments Follow-up Renal Mass 05/27/2019 Encounter Details Date Type Department Care Team (Late st Contact Info) Description 05/27/2019 3:20 PM EST [place] [address] Avila Medina MD [facility] [place] [address] Renal mass (Primary Dx) Social History Tobacco [...] or you can obtain it from the [facility] [place] on the day of your preoperative visit. Please take only clear liquids by mouth from noon the day before surgery. Please take nothing by mouth from 2 hours before the time you have been told to report to the hospital. 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 #2: Positive [...] being w/u for a neurological condition [facility] [place] with stents 11 years ago Type II [...] Cystic renal mass suspicious (Bosniak 3-4)for a [id number] renal cancer but incomplete evaluation #2: Positive [...] 05/01/2024 11:20 AM EDT Appointment Mammography/[place] [address] Rodney Padilla MD [address] [place] [place] [address] 05/01/2024 1:45 PM EDT Office [place] [address] Juanpablo Hernandez MD [facility] [place] [address] 05/23/2024 2:45 PM EST Clinical Support Family Medicine at [facility] [address] [place] [phone] Jluia Low [facility] 01/30/2025 1:30 PM EDT Laboratory Appointment Lab at [facility] [place] On[place] [address] [place] [address] 01/30/2025 3:[address] [place] [address] Arturo Cordero MD [facility] HEMATOLOGY [place] [address] 01/30/2025 4:15 PM EDT Office Visit Hematology [place] [phone] Arturo Cordero MD [facility] HEMATOLOGY [place] [address] documented as of this encounter Procedures Procedure [...] below. Avila Medina MD IMG DX ORDERABLES * (ABNORMAL) Urine culture Clean Catch Urine (06/21/2019 12:06 PM EST) Pathologist [facility] Urine Culture 10,000-49,000 cfu/ml mixed mucosal nimisha [...] - GENER AL ORDERABLES [facility] [place] [address] * (ABNORMAL) Comprehensive metabolic panel (non-fasting) (06/21/2019 12:02 PM EST) Glucose 205(H) 65 - 199 mg/dL [facility] [...] of body mass or the acutely ill. [email or web address] eGFR 81 >=60 mL/min/1. 73 m?? [facility] Comment: The eGFR was calculated using the CKD-EPI equation. As with all creatinine based estimates of kidney function, eGFR values calculated with the CKD-EPI equation are not accurate in patients with acute kidney failure, extremes of body mass or the acutely ill. [email or web address] Blood specimen (specimen) 06/21/2019 12:02 PM EST 06/21/2019 12:12 PM EST Narrative Resulting Agency Comment Spec In Lab Avila Medina MD CHEMISTRY ORDERABLES [facility] [place] [address] documented in this encounter Visit Diagnoses Diagnosis Renal mass- Primary Unspecified disorder of kidney and ureter Renal mass Unspecified disorder of kidney and ureter documented in this encounter Care Teams Facing Machine Operator Relationship Specialty Start Date End Date Luis E Narayan MD [facility] [address] [place] [address] PCP - General Family Medicine 03/26/19 01/19/22 documented as of this encounter
--- OUTSIDE RECORDS SUMMARY | 2024-04-13 15:52 | XMS_ITS | Encounter Summary ---
[place] [address] Care Team Providers Care Printing Grey Cloth Tender Name Role Phone Luis E Narayan MD Primary Care Provider [phone]- [phone] Encounter Details Date Type Department Care Team (Late st Contact Info) Description 05/09/[address] [facility] [address] [place] [address] Arlene Palomo, SOCIAL SCIENCE RESEARCH ASSISTANT Social History Tobacco Use Types Packs/Day Years [...] AM EDT Appointment Mammography/[place] [phone] Rodney Padilla MD [address] [place] [address] 05/01/2024 1:45 PM EDT Office [place] [phone] Juanpablo Hernandez MD [facility] [place] [address] 05/23/2024 2:45 PM EST Clinical Support Family Medicine at [facility] [address] [place] [phone] [facility] 01/30/2025 1:30 PM EDT Laboratory Appointment Lab at [facility] Hematology Oncology [address] [place] [address] 01/30/2025 3:[address] [place] [phone] Arturo Cordero MD [facility] DR [place] [address] 01/30/2025 4:15 PM EDT Office Visit Hematology [place] [phone] Arturo Cordero MD [facility] DR [place] [address] documented as of this encounter Visit Diagnoses Not on filedocumented in this encounter Care Teams Printing Grey Cloth Tender Relationship Specialty Start Date End Date Luis E Narayan MD [facility] [address] [address] PCP - General Family Medicine 03/26/19 01/19/22 documented as of this encounter
--- OUTSIDE RECORDS SUMMARY | 2024-04-13 15:52 | XMS_ITS | Encounter Summary ---
[place] [address] Care Team Providers Care Decorator Hand Name Role Phone Luis E Narayan MD Primary Care Provider [phone]- [phone] Encounter Details Date Type Department Care Team (Late st Contact Info) Description 04/15/2019 Telephone [place] [address] Ru Leon, RN Social History [...] 05/01/2024 11:20 AM EDT Appointment Mammography/[place] [address] Rodney Padilla MD [address] [place] [address] 05/01/2024 1:45 PM EDT Office [place] [phone] Juanpablo Hernandez MD [facility] [place] [address] 05/23/2024 2:45 PM EST Clinical Support Family Medicine at [facility] [address] [phone] Julia Low, [facility] 01/30/2025 1:30 PM EDT Laboratory Appointment Lab at [place] Hematology Oncology [address] [place] [address] 01/30/2025 3:[address] [place] [address] Arturo Cordero MD [facility] DR HEMATOLOGY [place] [address] 01/30/2025 4:15 PM EDT Office Visit Hematology [place] [phone] Arturo Cordero MD [facility] HEMATOLOGY [place] [address] documented as of this encounter Visit Diagnoses Not on filedocumented in this encounter Care Teams Decorator Hand Relationship Specialty Start Date End Date Luis E Narayan MD [facility] [address] [facility] [address] PCP - General Family Medicine 03/26/19 01/19/22 documented as of this encounter
--- OUTSIDE RECORDS SUMMARY | 2024-04-13 15:52 | XMS_ITS | Encounter Summary ---
Author Organization [facility] [place] [address] Care Team Providers Care Certified Surgical Technologist Name Role Phone Luis E Narayan MD Primary Care Provider [phone] Reason for Visit * Auth/Cert Specialty Diagnoses / Procedures Referred By Gonzalez t Referred To Contact Diagnoses Renal Mass Procedures PRO LAP, PARTIAL NEPHRECTOMY LAPAROSCOPY, PARTIAL NEPHRECTOMY, ROBOTIC ASSIST (WRVU 27.41) MODIFIER ROBOT,DAVINCI XI Referral ID Status Reason Start Date Expiration Date Visits Re quested Visits Authorized [id number] 1 1 Encounter Details Date Type Department Care Team (Late st Contact Info) Description 06/28/2019 8:30 AM EST - 06/28/2019 12:58 PM EST Surgery [place] [address] Avila Medina MD [facility] [place] [address] ROBOTIC LAPAROSCOPY, PARTIAL NEPHRECTOMY (WRVU 27.41) Social [...] Hospital Course: Alize Gramajo was admitted to [facility] on 06/28/2019 through the Same Day Surgery [...] that part of your care. Urology Clinic: [phone] PCP: Luis E Narayan MD, . Please follow-up with your PCP in 1-2 weeks or sooner as needed. Scheduled Appointments: The following appointments have been scheduled on your behalf: Future Appointments and Orders Future Appointments and Orders Future Appointments Provider Department Dept Phone 07/09/2019 2:30 PM [facility] Neurodiagnostic at [facility] Arrive at: [facility] [employer] Area [phone] 07/17/2019 9:20 AM LAB, THREE L Lab 3[facility] Arrive at: [facility] [place] Area 3L [phone] 07/17/2019 10:20 AM Avila Medina MD Urology at [facility] Arrive at: [facility] [place] Area 5B [phone] 07/22/2019 1:00 PM Luis E Narayan MD Primary Care at [facility] Arrive at: [facility] [place] 2 [place] [phone] 08/05/2019 1:45 PM Amy Aguiar MD Neurology at [facility] Arrive at: [facility] [place] Area 3C [phone] 08/13/2019 7:30 PM SLEEP, PHYSICIAN Sleep Center at [facility] Arrive at: [facility] [place] [address] [place] [phone] Future Orders Complete By Expires Basic Metabolic [...] 07/09/2019 2:30 PM C-ELECTRONEURO, DIAGNOSTICS Neurodiagnostic at [facility] Arrive at: [facility] Area [phone] 07/17/2019 9:20 AM LAB, THREE L Lab [address] [place] [address] Arrive at: [facility] 07/17/2019 10:20 AM Avila Medina MD Urology at [facility] Arrive at: [facility] [phone] 07/22/2019 1:00 PM Luis E Narayan MD Primary Care at [facility] Arrive at: [facility] [employer] 2 [facility] [phone] 08/05/2019 1:45 PM Amy Aguiar MD Neurology at [facility] Arrive at: [facility] [phone] 08/13/2019 7:30 PM SLEEP, PHYSICIAN Sleep Center at [facility] Arrive at: [facility] [place] [address] [place] [phone] Future Orders Complete By Expires Basic Metabolic [...] managed by the Urologic Surgery Team at [facility]. If you have any questions or concerns, please feel free to contact us. Provider Contact Information: Urology Clinic: [phone] [facility] (after business hours): CC: Luis E Narayan [...] 07/09/2019 2:30 PM [facility] Neurodiagnostic at [facility] Arrive at: [facility] [place] Area 3C [phone] 07/17/2019 9:20 AM LAB, THREE L Lab 3[facility] Arrive at: [facility] [place] Area 3L [phone] 07/17/2019 10:20 AM Avila Medina MD Urology at [facility] Arrive at: [facility] [place] Area 5B [phone] 07/22/2019 1:00 PM Luis E Narayan MD Primary Care at [facility] Arrive at: [facility] 2 [facility] [phone] 08/05/2019 1:45 PM Amy Aguiar MD Neurology at [facility] Arrive at: [facility] [place] Area [phone] 08/13/2019 7:30 PM SLEEP, PHYSICIAN Sleep Center at [facility] Arrive at: [facility] [place] [facility] [address] [place] [phone] Future Orders Complete By Expires Basic Metabolic [...] 04/09/2019 06/22/2020 fluticasone propionate (FLONASE) 50 mcg/actuation [place], Suspension 50 sprays by Each Nare route [...] patient. Please page the Regional Anesthesia Team ([phone]) with any questions or concerns. ?? Continue current management per primary service. ?? Thank you for the opportunity to have participated in the care of this patient. Julissa Morris MD Regional Team pager [phone] * Camilla Carrera - 06/30/2019 12:02 PM EST Urology Inpatient Progress Note ID: Alize Gramajo is a 58 y.o. female with history of ASCVD (CO with Stent 2007, on plavix), DM2, HTN, [...] time. Will continue to monitor. * Alize Benrard RN - 06/29/2019 7:30 AM EST Patient [...] rosario food. Resident paged - redirected this consumer loan underwriter to someone else on urology team. Dr. [...] spec had hemolyzed/ Lab contacted by this consumer loan underwriter at [phone] and new specimen has been [...] 58 y.o. female with history of ASCVD ([place] with Stent 2007, on plavix), DM2, HTN, [...] Alize Gramajo 58 y.o. female with ASCVD (CO w/ stents 11 years ago, on Plavix), DMII, HTN, Neuropathy, LUTS, with left cystic renal mass suspicious (Bosniak 3- 4) for a [id number] renal cancer who presents with robotic-assisted left [...] uses inhalerswith good effect ??? Atherosclerosis of [place] coronary artery of [place] heart with angina pectoris 10/09/2007 History of [...] 4 ??? fluticasone propionate (FLONASE) 50 mcg/actuation [place], Suspension 50 sprays by Each Nare route [...] Medina MD - 07/01/2019 3:[address] [facility] Operative Note Patient Name: Alize Gramajo : [id number] MR#: [id number] Case Date: 06/28/2019 Surgeon: Surgeon(s) and Role: * Avila Medina MD - Primary * Juanpablo Helm MD - Resident Registered Nurse Consulting Engineer: Felisha Sher RN Preoperative diagnosis: renal mass [...] Info Order Time SPECIMEN TO PATHOLOGY OR09 [id number] renal mass Left renal mass and fat [...] additional robotic ports were placed and an bilingual administrative assistant port, air seal was placed. Using [...] Admission order reviewed. Primary Insurance on file: [facility] Secondary Insurance on file: N/A Primary care provider on file: Luis E Narayan MD [phone] Advance Directive on file and Code Status: <no information>, Full Code Patient???s Functional Status: Independent using front wheel walker Living Situation: Home with support of family and friends [address] [facility] [phone] Supports:Family and friends Assessment: Patient with no apparent RNCM/SW needs at this time. No housing, transportation, insurance, resources concerns identified at this time. Supports in place to achieve a safe post-hospital transition. No identified barriers to accessing necessary care and/or follow-up after discharge. Plan: Patient to d/c to Home via car when medically ready. environmental technical officer/Integration Project Manager will continue to follow patient???s progress and remain available if situation changes for coordination of care, psychosocial support and/or discharge planning. Rani Emanuel RN Pager [phone] Extension [phone] * Plan of Care - Allison Sánchez [...] meal coverage, correction doses administered/or held per [facility] order parameters in place. HR [...] Activity Activity Type -- -- ambulated in richrad Activity Assistance Provided -- -- assistance, stand-by [...] Operative Note Patient Name: Alize Gramajo : [id number] MR#: [id number] Case Date: 06/28/2019 Surgeon: Surgeon(s) and Role: [...] Info Order Time SPECIMEN TO PATHOLOGY [id number] [id number] renal mass Left renal mass and fat [...] 11:20 AM EDT Appointment Mammography/[place] [phone] Rodney Padilla MD [address] [place] [address] 05/01/2024 1:45 PM EDT Office [place] [phone] Juanpablo Hernandez MD [facility] [place] [address] 05/23/2024 2:45 PM EST Clinical Support Family Medicine at [facility] [address] [place] [place] [phone] Julia Low [facility] 01/30/2025 1:30 PM EDT Laboratory Appointment Lab at [facility] Hematology Oncology [address] [place] [address] 01/30/2025 3:[address] [place] [address] Arturo Cordero MD [facility] DR HEMATOLOGY [place] [address] 01/30/2025 4:15 PM EDT Office Visit Hematology [place] [address] Arturo Cordero MD [facility] HEMATOLOGY [place] [address] documented as of this encounter Procedures Procedure [...] AM EST Renal mass Lap, Partial Nephrectomy (61339) 06/28/2019 8:39 AM EST Renal mass POCT GLUCOSE Routine 06/28/2019 8:17 AM EST documented in this encounter Results * Basic Metabolic Panel (non-fasting) (07/17/2019 9:47 AM EST) Glucose 131 65 - 199 mg/dL [facility] Comment:Diabetes: >=200 mg/d L plus symptoms Blood Urea Nitrogen 17 8 - 18 mg/dL [facility] Creatinine 0.84 0.70 - 1.20 mg/dL [facility] Sodium 140 135 - 145 mmol/L [facility] Potassium 4.5 3.5 - 5.0 mmol/L [facility] Comment: Please note: ??Patients with WBC >100,000 may have falsely elevated Potassium levels. ??For accurate Potassium quantification in these patients send serum separator tube (gold top) for subsequent determinations. ??Contact the Clinical Chemistry Laboratory if there are any questions. Chloride 102 98 - 107 mmol/L [facility] Carbon Dioxide 28 22 - 31 mmol/L [facility] Anion Gap 10 5 - 15 mmol/L [facility] Calcium 10.1 8.5 - 10.5 mg/dL [facility] Est Glomerular Filtration Rate 76 >=60 mL/min/1. 73 m?? [facility] Comment: The eGFR was calculated using the CKD-EPI equation. As with all creatinine based estimates of kidney function, eGFR values calculated with the CKD-EPI equation are not accurate in patients with acute kidney failure, extremes of body mass or the acutely ill. [email or web address] eGFR 88 >=60 mL/min/1. 73 m?? [facility] Comment: The eGFR was calculated using the CKD-EPI equation. As with all creatinine based estimates of kidney function, eGFR values calculated with the CKD-EPI equation are not accurate in patients with acute kidney failure, extremes of body mass or the acutely ill. [email or web address] Blood specimen (specimen) 07/17/2019 9:47 AM EST 07/17/2019 9:56 AM EST Narrative Resulting Agency Comment Spec In Lab Avila Medina MD CHEMISTRY ORDERABLES [facility] [place] [address] * POCT Glucose (07/01/2019 12:01 PM EST) Glucose, POC 124 65 - 199 mg/dL [facility] Comment: Supplemental ranges: <140 mg/dL before meals <180 mg/dL all other times of the day Blood specimen (specimen) 07/01/2019 12:01 PM EST 07/01/2019 12:01 PM EST Avlia Medina MD POINT OF CARE TEST O RDERACELY Performing Organization Address City/[facility] Co de Phone Number [facility] [place] [address] * POCT Glucose (07/01/2019 7:28 AM EST) Glucose, POC 123 65 - 199 mg/dL [facility] Comment: Supplemental ranges: <140 mg/dL before meals <180 mg/dL all other times of the day Blood specimen (specimen) 07/01/2019 7:28 AM EST 07/01/2019 7:28 AM EST Avila Medina MD POINT OF CARE TEST O ULISES Performing Organization Address [facility] Co de Phone Number [facility] [place] [address] * POCT Glucose (06/30/2019 7:41 PM EST) Glucose, POC 120 65 - 199 mg/dL [facility] Comment: Supplemental ranges: <140 mg/dL before meals <180 mg/dL all other times of the day Blood specimen (specimen) 06/30/2019 7:41 PM EST 06/30/2019 7:41 PM EST Avila Medina MD POINT OF CARE TEST O RDERACELY Performing Organization Address City/[facility] Co de Phone Number [facility] [place] [address] * POCT Glucose (06/30/2019 3:15 PM EST) Glucose, POC 131 65 - 199 mg/dL [facility] Comment: Supplemental ranges: <140 mg/dL before meals <180 mg/dL all other times of the day Blood specimen (specimen) 06/30/2019 3:15 PM EST 06/30/2019 3:15 PM EST Avila Medina MD POINT OF CARE TEST O RDERACELY Performing Organization Address City/[facility] Co de Phone Number [facility] [place] [address] * POCT Glucose (06/30/2019 11:52 AM EST) Glucose, POC 146 65 - 199 mg/dL [facility] Comment: Supplemental ranges: <140 mg/dL before meals <180 mg/dL all other times of the day Blood specimen (specimen) 06/30/2019 11:52 AM EST 06/30/2019 11:52 AM EST Avila Medina MD POINT OF CARE TEST O DENISEERACELY Performing Organization Address [facility] Co de Phone Number [facility] [place] [address] * POCT Glucose (06/30/2019 7:48 AM EST) Glucose, POC 131 65 - 199 mg/dL [facility] Comment: Supplemental ranges: <140 mg/dL before meals <180 mg/dL all other times of the day Blood specimen (specimen) 06/30/2019 7:48 AM EST 06/30/2019 7:48 AM EST Avila Medina MD POINT OF CARE TEST O RDERABLES Performing Organization Address City/[facility] Co de Phone Number [facility] [place] [address] * POCT Glucose (06/30/2019 3:26 AM EST) Glucose, POC 124 65 - 199 mg/dL [facility] Comment: Supplemental ranges: <140 mg/dL before meals <180 mg/dL all other times of the day Blood specimen (specimen) 06/30/2019 3:26 AM EST 06/30/2019 3:26 AM EST Avila Medina MD POINT OF CARE TEST O ULISES Performing Organization Address City/[facility] Co de Phone Number [facility] [place] [address] * POCT Glucose (06/29/2019 11:36 PM EST) Glucose, POC 153 65 - 199 mg/dL [facility] Comment: Supplemental ranges: <140 mg/dL before meals <180 mg/dL all other times of the day Blood specimen (specimen) 06/29/2019 11:36 PM EST 06/29/2019 11:36 PM EST Avila Medina MD POINT OF CARE TEST O ULISES Performing Organization Address [facility] Co de Phone Number [facility] [place] [address] * POCT Glucose (06/29/2019 3:36 PM EST) Glucose, POC 177 65 - 199 mg/dL [facility] Comment: Supplemental ranges: <140 mg/dL before meals <180 mg/dL all other times of the day Blood specimen (specimen) 06/29/2019 3:36 PM EST 06/29/2019 3:36 PM EST Avila Medina MD POINT OF CARE TEST O ULISES Performing Organization Address City/[facility] Co de Phone Number [facility] [place] [address] * POCT Glucose (06/29/2019 12:03 PM EST) Glucose, POC 138 65 - 199 mg/dL [facility] Comment: Supplemental ranges: <140 mg/dL before meals <180 mg/dL all other times of the day Blood specimen (specimen) 06/29/2019 12:03 PM EST 06/29/2019 12:03 PM EST Avila Medina MD POINT OF CARE TEST O RDERABLES Performing Organization Address [facility] Co de Phone Number [facility] [place] [address] * Creatinine Level Body Fluid YANDY Drain (06/29/2019 10:29 AM EST) Creatinine, Fluid 0.8 mg/dL [facility] Comment: No reference range is available for the specimen type submitted. ??The performance of this assay for the submitted type has not been validated and results should be interpreted accordingly and with regard to the patient's clinical status. Creat, Fld Type YANDY Drain [facility] YANDY Drain 06/29/2019 10:2 9 AM EST 06/29/2019 11:00 AM EST Narrative Resulting Agency Comment Spec In Lab Avila Medina MD BODY FLUIDS AND STOO LS ORDERABLES Performing Organization Address [facility] de Phone Number [facility] [place] [address] * POCT Glucose (06/29/2019 6:53 AM EST) Pathologist [facility] Glucose, POC 129 65 - 199 mg/dL [facility] Comment: Supplemental ranges: <140 mg/dL before meals <180 mg/dL all other times of the day Blood specimen (specimen) 06/29/2019 6:53 AM EST 06/29/2019 6:53 AM EST Avila Medina MD POINT OF CARE TEST O RDERABLES Performing Organization Address [facility] Co de Phone Number [facility] [place] [address] * (ABNORMAL) Differential, Automated (06/29/2019 2:57 AM EST) Neutrophil % 73.6 % [facility] Neutrophil Absolute 7.96(H) 1.70 - 6.10 x10(3)/[facility] Lymph % 15.1 % [facility] Lymphocytes Abs 1.6 0.9 - 3.2 x10(3)/[facility] Monocyte % 9.2 % [facility] Monocyte Abs 1.0(H) 0.3 - 0.9 x10(3)/[facility] Eos % 1.2 % [facility] Eosinophils Abs 0.1 0.0 - 0.4 x10(3)/[facility] Basophil % 0.4 % [facility] Baso Absolute 0.0 0.0 - 0.1 x10(3)/[facility] Immature Gran % 0.50 % [facility] Comment: Immature granulocytes(IG's)percentage and absolute count will include metamyelocytes, myelocytes, and promyelocytes. Blood smears from CBCs yielding IG's will be scanned manually for concordance. If this scan disagrees with the automated IG or if promyelocytes are noted, a manual differential will be performed. Immature Gran Absolute 0.05(H) 0.00 - 0.04 x10(3)/[facility] Blood specimen (specimen) 06/29/2019 2:57 AM EST 06/29/2019 3:03 AM EST Narrative Resulting Agency Comment Spec In Lab Camilla Carrera MD HEMATOLOGY ORDERABLE S [facility] [place] [address] * (ABNORMAL) Hemogram (06/29/2019 2:57 AM EST) White Blood Cell 10.8(H) 4.0 - 9.5 x10(3)/[facility] Red Blood Cell 4.17 4.00 - 5.21 x10(6)/[facility] Hemoglobin 11.9 11.7 - 15.5 gm/dL [facility] Hematocrit 37.3 35.7 - 45.8 % [facility] Mean Cell Volume 89.4 82.6 - 94.4 fL [facility] Mean Cell Hemoglobin 28.5 27.1 - 32.0 pg [facility] Mean Cell Hemoglobin Concentration 31.9 31.7 - 35.0 gm/dL [facility] Platelet 277 145 - 357 x10(3)/mc L [facility] RDW Standard Deviation 47.2(H) 37.0 - 46.0 fL [facility] RDW coefficient of variation 14.4(H) 11.5 - 14.1 % [facility] Mean Platelet Volume 9.4 7.6 - 12.9 fL [facility] NRBC% auto 0.0 % [facility] NRBC Absolute 0.000 0.000 - 0.000 x10(3)/ L [facility] Blood specimen (specimen) 06/29/2019 2:57 AM EST 06/29/2019 3:03 AM EST Narrative Resulting Agency Comment Spec In Lab Camilla Carrera MD HEMATOLOGY ORDERABLE S Performing Organization Address City/State/[facility] Co de Phone Number [facility] [place] [address] * (ABNORMAL) BMP w/fasting Glucose (06/29/2019 2:57 AM EST) Glucose Fasting 116(H) 65 - 99 mg/dL [facility] Comment: ?Fasting* Glucose Interpretive Criteria [...] of Diabetes Mellitus, Position Statement from the [place] [employer]. ??Diabetes Care, Volume 33, Supplement 1, Jul 2009 Blood Urea Nitrogen 10 8 - 18 mg/dL [facility] Creatinine 0.82 0.70 - 1.20 mg/dL [facility] Sodium 144 135 - 145 mmol/L [facility] Potassium 4.2 3.5 - 5.0 mmol/L [facility] Comment: Please note: ??Patients with WBC >100,000 may have falsely elevated Potassium levels. ??For accurate Potassium quantification in these patients send serum separator tube (gold top) for subsequent determinations. ??Contact the Clinical Chemistry Laboratory if there are any questions. Chloride 107 98 - 107 mmol/L [facility] Carbon Dioxide 26 22 - 31 mmol/L [facility] Anion Gap 11 5 - 15 mmol/L [facility] Calcium 8.9 8.5 - 10.5 mg/dL [facility] Est Glomerular Filtration Rate 78 >=60 mL/min/1. 73 m?? [facility] Comment: The eGFR was calculated using the CKD-EPI equation. As with all creatinine based estimates of kidney function, eGFR values calculated with the CKD-EPI equation are not accurate in patients with acute kidney failure, extremes of body mass or the acutely ill. [email or web address] eGFR 91 >=60 mL/min/1. 73 m?? [facility] Comment: The eGFR was calculated using the CKD-EPI equation. As with all creatinine based estimates of kidney function, eGFR values calculated with the CKD-EPI equation are not accurate in patients with acute kidney failure, extremes of body mass or the acutely ill. [email or web address] Blood specimen (specimen) 06/29/2019 2:57 AM EST 06/29/2019 3:03 AM EST Narrative Resulting Agency Comment Spec In Lab Avila Medina MD CHEMISTRY ORDERABLES Performing Organization Address [facility] de Phone Number [facility] [place] [address] * POCT Glucose (06/28/2019 9:57 PM EST) Glucose, POC 148 65 - 199 mg/dL [facility] Comment: Supplemental ranges: <140 mg/dL before meals <180 mg/dL all other times of the day Blood specimen (specimen) 06/28/2019 9:57 PM EST 06/28/2019 9:57 PM EST Avila Medina MD POINT OF CARE TEST O RDERABLES Performing Organization Address [facility] de Phone Number [facility] [place] [address] * Creatinine Level Body Fluid YANDY Drain (06/28/2019 9:49 PM EST) Creatinine, Fluid 1.0 mg/dL [facility] Comment: No reference range is available for the specimen type submitted. ??The performance of this assay for the submitted type has not been validated and results should be interpreted accordingly and with regard to the patient's clinical status. Creat, Fld Type YANDY Drain [facility] YANDY Drain 06/28/2019 9:49 PM EST 06/28/2019 10:09 PM EST Narrative Resulting Agency Comment Spec In Lab Avila Medina MD BODY FLUIDS AND STOO LS ORDERABLES Performing Organization Address [facility] de Phone Number [facility] [place] [address] * POCT Glucose (06/28/2019 4:13 PM EST) Glucose, POC 116 65 - 199 mg/dL [facility] Comment: Supplemental ranges: <140 mg/dL before meals <180 mg/dL all other times of the day Blood specimen (specimen) 06/28/2019 4:13 PM EST 06/28/2019 4:13 PM EST Avila Medina MD POINT OF CARE TEST O RDERABLES [facility] [place] [address] * (ABNORMAL) BMP w/fasting Glucose (06/28/2019 2:30 PM EST) Glucose Fasting 147(H) 65 - 99 mg/dL [facility] Comment: ?Fasting* Glucose Interpretive Criteria [...] of Diabetes Mellitus, Position Statement from the [place] [employer]. ??Diabetes Care, Volume 33, Supplement 1, Jul 2009 Blood Urea Nitrogen 10 8 - 18 mg/dL [facility] Creatinine 0.80 0.70 - 1.20 mg/dL [facility] Sodium 144 135 - 145 mmol/L [facility] Potassium 4.3 3.5 - 5.0 mmol/L [facility] Comment: Please note: ??Patients with WBC >100,000 may have falsely elevated Potassium levels. ??For accurate Potassium quantification in these patients send serum separator tube (gold top) for subsequent determinations. ??Contact the Clinical Chemistry Laboratory if there are any questions. Chloride 108(H) 98 - 107 mmol/L [facility] Carbon Dioxide 25 22 - 31 mmol/L [facility] Anion Gap 11 5 - 15 mmol/L [facility] Calcium 8.9 8.5 - 10.5 mg/dL [facility] Est Glomerular Filtration Rate 81 >=60 mL/min/1. 73 m?? [facility] Comment: The eGFR was calculated using the CKD-EPI equation. As with all creatinine based estimates of kidney function, eGFR values calculated with the CKD-EPI equation are not accurate in patients with acute kidney failure, extremes of body mass or the acutely ill. [email or web address]/[facility] eGFR 94 >=60 mL/min/1. 73 m?? [facility] Comment: The eGFR was calculated using the CKD-EPI equation. As with all creatinine based estimates of kidney function, eGFR values calculated with the CKD-EPI equation are not accurate in patients with acute kidney failure, extremes of body mass or the acutely ill. [email or web address]://[email or web address]/[facility] Blood specimen (specimen) 06/28/2019 2:30 PM EST 06/28/2019 2:59 PM EST Narrative Resulting Agency Comment Spec In Lab Avila Medina MD CHEMISTRY ORDERABLES Performing Organization Address [facility] Co de Phone Number [facility] [place] [address] * Hemoglobin and Hematocrit, blood (06/28/2019 2:30 PM EST) Hemoglobin 12.5 11.7 - 15.5 gm/dL [facility] Hematocrit 37.8 35.7 - 45.8 % [facility] Blood specimen (specimen) 06/28/2019 2:30 PM EST 06/28/2019 2:59 PM EST Narrative Resulting Agency Comment Spec In Lab Avila Medina MD HEMATOLOGY ORDERABLE S Performing Organization Address City/[facility] Co de Phone Number [facility] [place] [address] * POCT Glucose (06/28/2019 2:05 PM EST) Glucose, POC 133 65 - 199 mg/dL [facility] Comment: Supplemental ranges: <140 mg/dL before meals <180 mg/dL all other times of the day Blood specimen (specimen) 06/28/2019 2:05 PM EST 06/28/2019 2:05 PM EST Avila Medina MD POINT OF CARE TEST O ULISES Performing Organization Address [facility] de Phone Number [facility] [place] [address] * Specimen to Pathology (06/28/2019 12:59 PM EST) AP Specimen 06/28/2019 12:5 9 PM EST 06/28/2019 12:59 PM EST Narrative [facility] - 06/28/2019 12:59 PM EST Specimen requisition ordered. ??Separate Pathology report to follow Avila Medina MD PATHOLOGY/CYTOLOGY O ULISES Performing Organization Address [facility] Phone Number [facility] [place] [address] * Solid Tumor NGS Panel (06/28/2019 12:57 PM EST) Tissue specimen (specimen) 06/28/2019 12:57 PM EST 05/28/2020 1:28 PM EST Narrative Resulting Agency Comment Spec In Lab Avila Medina MD PATHOLOGY/CYTOLOGY O ULISES Performing Organization Address [facility] Phone Number [facility] [place] [address] * Surgical Pathology Report (06/28/2019 12:57 PM EST) Final Diagnosis [id number] ? Location: [facility]; [facility]; A The signing pathologist has (i) examined [...] ?? A4 Normal Block(s): ?? 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 ??- Margins negative for carcinoma. ??- See synoptic report for additional details and staging. Electronically signed by: ??Christine Pierce MD Verified: ??07/04/2019 ?Pathologist Performed at: ??-[facility] Dept. of Pathology, [place], [place] DISCUSSION Whole slide scan: [id number] A6-1 CLINICAL INFORMATION Specimen Submitted: A - [...] Inking: Parenchymal margin inked black. Sections/Processi ng: Social Media Executive sections in 10 cassettes as follows: ?A1-A5: ??Tumor to closest margin ?A6: ??Tumor to fat ?A7-A8: ??Additional outside sales representative tumor ?A9: ??Lesion to normal kidney ?A10: ??Normal kidney ??[facility] 07/04/2019 11:12 AM EST [facility] SPECIMEN FROM KIDNEY / Unknown 06/28/2019 12:57 PM EST 06/28/2019 12:57 PM EST Avila Medina MD PATHOLOGY/CYTOLOGY O RDERABLES [facility] [place] [address] * (ABNORMAL) BLOOD GAS 2 ARTERIAL (06/28/2019 11:13 AM EST) pH, Arterial 7.33(L) 7.35 - 7.45 [facility] PCO2, Arterial 51(H) 35 - 45 mmHg [facility] PO2, Arterial 198(H) 85 - 104 mmHg [facility] Bicarbonate, Arterial 26.8(H) 20.0 - 26.0 mmol/L [facility] Base Excess, Arterial 0.4 -3.0 - 3.0 mmol/L [facility] Hgb Blood Gas 13.4 11.7 - 15.5 gm/dL [facility] Oxyhemoglobin, Arterial 94.2 94.0 - 97.0 % [facility] Carboxyhemoglob in, Arterial 4.6 % [facility] Comment: Nonsmokers: 0.5-1.5% COHB Smokers: Variable, but usually less than 10% Toxic: 20-30% COHB Lethal: Greater than 60% COHB Methemoglobin, Arterial 0.3 <=1.5 % [facility] Na Whole Blood 140 135 - 145 mmol/L [facility] K Whole Blood 4.1 3.5 - 5.0 mmol/L [facility] Comment: Please note: Patients with WBC >100,000 may have falsely elevated Potassium levels. Contact the Clinical Chemistry Laboratory if there are any questions. ICa Whole Blood 1.18 1.15 - 1.33 mmol/L [facility] Comment: Note: ??Total bilirubin higher than 20 mg/dL may lead to falsely low ionized calcium. CL Whole Blood 108(H) 98 - 107 mmol/L [facility] Gluc Whole Bld 160 65 - 199 mg/dL [facility] Comment:Diabetes: >=200 mg/d L plus symptoms. Lactate WB 1.3 0.5 - 2.2 mmol/L [facility] FIO2 Art 56 % [facility] PF Ratio Art 354 [facility] Temp Art 35.3 Celsius [facility] Blood specimen (specimen) 06/28/2019 11:13 AM EST 06/28/2019 11:13 AM EST Avila Medina MD POINT OF CARE TEST O RDERABLES [facility] [place] [address] * POCT Glucose (06/28/2019 8:17 AM EST) Glucose, POC 146 65 - 199 mg/dL [facility] Comment: Supplemental ranges: <140 mg/dL before meals <180 mg/dL all other times of the day Blood specimen (specimen) 06/28/2019 8:17 AM EST 06/28/2019 8:17 AM EST Avila Medina MD POINT OF CARE TEST O ARIANABLES [facility] [place] [address] documented in this encounter Visit Diagnoses Diagnosis [...] Nebulization, EVERY 4 HOURS PRN, Starting on 06/28/19 at 1619, Until Mon07/01/19 at 1846, Wheezing, [...] Nelson Tomlinson RN) 0531 (Given - Provider: Nleson oTmlinson RN)1237 (Given - Provider: Yue Moore RN) amLODIPine (Norvasc) tablet 5 mg 5 mg, Oral, DAILY, First dose on Mon06/29/19 at 0900, Until Discontinued, Routine 1008 (Given - Provider: Christine Wu RN) 0809 (Given - Provider: Allison Sánchez RN) 0929 (Given - Provider: Yue Moore RN) aspirin [...] on Mon06/29/19 at 2100, Until Discontinued, Routine 213 (Given - Provider: Nelson Tomlinson RN) 08 [...] RN) 0533 (Given - Provider: Nelson Tomlinson, VEDA)1344 (Given - Provider: Allison Sánchez, VEDA)2110 (Given - Provider: Nelson Tomlinson, RN) 0532 [...] Routine 0800 (Not Given - Provider: Christine uW RN - Reason: Order parameters not met [...] dose on 06/29/19 at 2300, Until Discontinued 2331 (Given - Provider: Nelson Tomlinson RN - Comment: L/R neck & shoulders) 810 (Given - Provider: Allison Sánchez RN)2013 (Given - Provider: Nelson Tomlinson RN) 928 (Given - Provider: Yue Moore RN) metoprolol tartrate (Lopressor) tablet 12.5 mg 12.5 mg, Oral, EVERY 12 HOURS SCHEDULED (2 times per day), First dose (after last reorder) on 06/29/19 at 0900, Until Discontinued, Routine 140 (Given - Provider: Christine Wu RN - [...] RN) 101 (Patch Applied - Provider: Yue Moore, VEAD) nicotine (NICODERM CQ) 21 mg/24 hr patch [...] 181 (Given - Provider: Carlota Rocha RN) 163 (Given - Provider: Allison Sánchez RN) sodium chloride 0.9 % (flush) flush 5 [...] Routine 2138 (Given - Provider: Nelson Tomlinson, VEDA) 2011 (Given - Provider: Nelson Tomlinson RN) [...] Rocha RN) 0948 (Given - Provider: Allison Sánchez, [...] VEDA)2145 (See Alternative - Provider: Nelson Tomlinson, RN) [...] 1057 (See Alternative - Provider: Christine Wu, VEDA)2145 (Given - Provider: Nelson Tomlinson, VEDA) 1240 [...] 1500, Until 07/01/19 at 0849, Pain, for mild pain (1-3), May give an additional 2 mg once if pain not relieved in 30-60 minutes., Routine Or HYDROmorphone (Dilaudid) tablet 4 mg (CANCELED)Jump to med 4 mg, Oral, EVERY 4 HOURS PRN, Starting on Mon06/28/19 at 1500, Until 07/01/19 at 0849, Pain, for moderate pain (4-6), [...] Routine documented in this encounter Care Teams Certified Surgical Technologist Relationship Specialty Start Date End Date Luis E Narayan MD [facility] DR [facility] [address] PCP - General Family Medicine 03/26/19 01/19/22 documented as of this encounter
--- OUTSIDE RECORDS SUMMARY | 2024-04-13 15:52 | XMS_ITS | Encounter Summary ---
Author Organization [facility] Address [facility] [place] [address] Care Team Providers Care Induction Heat Treater Name Role Phone Luis E Narayan MD Primary Care Provider Encounter Details Date Type Department Care Team (Latest Contact Info) Description 06/27/2019 1:06 PM EST - 06/27/2019 11:59 PM [facility] Hospital Encounter XRay at [address] [place] [address] Avila Medina MD [facility] [address] Renal mass Discharge Disposition: Home Social History [...] 04/09/2019 06/22/2020 fluticasone propionate (FLONASE) 50 mcg/actuation [place], Suspension 50 sprays by Each Nare route [...] Rodney Padilla MD [address] [place] [address] 05/01/2024 1:45 PM EDT Office [place] [phone] Juanpablo Hernandez MD [facility] [place] [address] 05/23/2024 2:45 PM EST Clinical Support [facility] at [facility] [address] [place] [phone] Julia Low, [facility] 01/30/2025 1:30 PM EDT Laboratory Appointment Lab at [facility] Hematology Oncology [address] [place] [address] 01/30/2025 3:[address] [place] [address] Arturo Cordero MD [facility] [place] [address] 01/30/2025 4:15 PM EDT Office Visit Hematology [place] [phone] Arturo Cordero MD [facility] [address] [place] [address] documented as of this encounter Procedures Procedure [...] ureter documented in this encounter Care Teams Induction Heat Treater Relationship Specialty Start Date End Date Luis E Narayan MD [facility] [address] [place] [address] PCP - General Family Medicine 03/26/19 01/19/22 documented as of this encounter
--- OUTSIDE RECORDS SUMMARY | 2024-04-13 15:52 | XMS_ITS | Encounter Summary ---
Author Organization [facility] Address [facility] [place] [address] Care Team Providers Care Welder Gas Tungsten Arc Name Role Phone Luis E Narayan MD Primary Care Provider [phone] Reason for Visit * Consultation (Routine) - Closed Specialty Diagnoses / Procedures Referred By Gonzalez kumari Referred To Contact Primary Care Diagnoses Type 2 diabetes mellitus with hyperglycemia, without long-term current use of insulin Luis E Narayan MD [facility] [address] L[address] [place] [address] [facility] Family Medicine [facility] [place] [address] Referral ID Status Reason Start Date Expiration Date V isits Requested Visits Authorized [id number] Closed Specialty Service Requested 05/29/2019 05/28/2020 1 1 Encounter Details Date Type Department Care Team (Late st Contact Info) Description 06/04/2019 1:00 PM EST Telephone [place] [phone] Julia Low, [facility] Social History Tobacco Use Types Packs/Day Years [...] 05/01/2024 11:20 AM EDT Appointment Mammography/[place] [address] Rodney Padilla MD [address] [place] [address] 05/01/2024 1:45 PM EDT Office [place] [address] Juanpablo Hernandez MD [facility] OPHTHALMOLOGY [place], [place] [phone] 05/23/2024 2:45 PM EST Clinical Support [facility] Medicine at [facility] [address] [place] [phone] Julia Low [facility] 01/30/2025 1:30 PM EDT Laboratory Appointment Lab at [facility] Hematology Oncology [address] [place] [id number] 01/30/2025 3:[address] [place] [address] Arturo Cordero MD [facility] DR HEMATOLOGY [place] [address] 01/30/2025 4:15 PM EDT Office Visit Hematology [place] [address] Arturo Cordero MD [facility] DR [place]EMATOLOGY [place] [address] Scheduled Referrals Name Type Priority Associated Diagnoses Orde r Schedule Referral to [facility] (Primary Care Use Only) Outpatient Referral Routine Type 2 diabetes mellitus without long-term current use of insulin Ordered: 05/29/2019 documented as of this encounter Visit Diagnoses Not on filedocumented in this encounter Care Teams Welder Gas Tungsten Arc Relationship Specialty Start Date End Date Thurston, Luis E E, MD [facility] [address] [place] [address] PCP - General Family Medicine 03/26/19 01/19/22 documented as of this encounter
--- OUTSIDE RECORDS SUMMARY | 2024-04-13 15:52 | XMS_ITS | Encounter Summary ---
Author Organization [place] [address] Care Team Providers Care Loan Assistant Name Role Phone Luis E Narayan MD Primary Care Provider Reason for Visit * Auth/Cert Specialty Diagnoses / Procedures Referred By Gonzalez t Referred To Contact Diagnoses Renal Mass Procedures PRO LAP, PARTIAL NEPHRECTOMY LAPAROSCOPY, PARTIAL NEPHRECTOMY, ROBOTIC ASSIST (WRVU 27.41) MODIFIER ROBOT,DAVINCI XI Referral ID Status Reason Start Date Expiration Date Visits Re quested Visits Authorized [id number] 1 1 Encounter Details Date Type Department Care Team (Late st Contact Info) Description 06/28/2019 8:34 AM EST Anesthesia Event [place] [address] Nathan Schmidt MD [facility] [place] [address] Anesthesia Record Procedure Summary Procedure Name Responsible [...] Lumen metacarpal vein (top of hand), right; fatk-bdu-fcfvnv catheter system; 18 gauge; Nathan Schmidt MD; ([place]); 06/29/19; 182306/28/19 1102 by 06/29/19 1824 by Carlota Rocha, VEDA (RETIRED) Peripheral IV Line - Single Lumen 06/28/19; 0807; median cubital vein (antecubital fossa), left; obiy-nbi-zrdzom catheter system; 20 gauge; Gerson Boston RN; [...] Christine Wu RN Arterial Line 06/28/19; 1018; [facility] hial artery, left; 20 gauge; Nathan Schmidt; [...] Procedure Summary Date: 06/28/19 Room / Location: [facility] OR [facility] MAIN OR Anesthesia Start: 833 Anesthesia Stop: 135 Procedures: LAPAROSCOPY, PARTIAL NEPHRECTOMY, ROBOTIC ASSIST (WRVU 27.41) (Left Flank) MODIFIER ROBOT,DAVINCI XI (N/A ) Diagnosis: Renal mass (renal mass) Surgeon: Avila Medina MD Responsible Provider: Nathan Schmidt MD Anesthesia Type: general ASA Status: 3 All Anesthesia Providers: Anesthesiologist: Nathan Schmidt MD Upsetter Setter Up: Joni Jane MD Vitals Value Taken Time BP 118/57 06/28/2019 1:51 PM Temp Pulse 68 06/28/2019 2:00 PM Resp 22 06/28/2019 2:00 PM SpO2 99 % 06/28/2019 2:00 PM Pain Level Vitals shown include unvalidated device data. Patient Location: PACU/[facility] Level of Consciousness: Conscious but Sleepy Pain [...] and mask, cap, sterile gloves, hand hygeine R-ddtsv-tsimx 21 10 cm Ultrasound Guided: YES and [...] Bipolar affective disorder in remission Diagnosis in [facility] records, unconfirmed ??? Anxiety ??? Depressive disorder [...] TSH, etc. ??? Coronary artery disease involving [place] coronary artery of [place] heart with angina pectoris History of angina [...] uses inhalerswith good effect ??? Atherosclerosis of k[place] coronary artery of [place] heart with angina pectoris 10/09/2007 History of [...] on CPAP, depression/anxiety/bipolar, HLD, HTN, CAD s/p [place] and 4 stents to LCx in 10/2007, [...] AM EDT Appointment Mammography/[place] [phone] Rodney Padilla MD [address] [facility] [address] 05/01/2024 1:45 PM EDT Office [place] [phone] Juanpablo Hernandez MD [facility] [place] [address] 05/23/2024 2:45 PM EST Clinical Support Family Medicine at [facility] [address] [place] [address] Julia Low [facility] 01/30/2025 1:30 PM EDT Laboratory Appointment Lab at [facility] Hematology Oncology [address] [place] [address] 01/30/2025 3:[address] [place] [phone] Arturo Cordero MD [facility] DR [place] [address] 01/30/2025 4:15 PM EDT Office Visit Hematology and Oncology at [facility] [place] [address] Arturo Cordero MD [facility] [address] [place] [address] documented as of this encounter Procedures Procedure [...] and mask, cap, sterile gloves, hand hygeine Q-pvhui-gwzop 21 10 cm Ultrasound Guided: ??YES and [...] tolerated procedure without issue. Jak Crystal MD HOME SUPERVISOR [facility] documented in this encounter Visit Diagnoses Not on filedocumented in this encounter Administered Medications Inactive Administered Medications - up to 3 most recent administrations Medication Order MAR Action Action Date Dose Rate Site cefTRIAXone (ROCEPHIN) 2 g vial attach to sodium chloride 0.9% 50 mL Mini-Bag Plus 2 g, Intravenous, INFORMATION SYSTEMS AUDIT MANAGER TO O.R., 1 dose, On Mon06/28/19 at [...] subcutaneous injection 5,000 Units 5,000 Units, Subcutaneous, INFORMATION SYSTEMS AUDIT MANAGER TO O.R., 1 dose, On Mon06/28/19 at [...] mLs documented in this encounter Care Teams Loan Assistant Relationship Specialty Start Date End Date Luis E Narayan MD [facility] DR [facility]IL[facility] [place] [address] PCP - General Family Medicine 03/26/19 01/19/22 documented as of this encounter
--- OUTSIDE RECORDS SUMMARY | 2024-04-13 15:52 | XMS_ITS | Encounter Summary ---
Author Organization [facility] [place] [address] Care Team Providers Care Flight Attendant Inflight Services Name Role Phone Luis E Narayan MD Primary Care Provider [phone] Reason for Visit * Consultation (Routine) - Closed Specialty Diagnoses / Procedures Referred By Gonzalez kumari Referred To Contact Endocrinology Diagnoses Type 2 diabetes mellitus with hyperglycemia, without long-term current use of insulin Luis E Narayan MD [facility] [address] [place] [address] [facility] [address] [place] [address] Referral ID Status Reason Start Date Expiration Date V isits Requested Visits Authorized [id number] Closed Consult, Test & Treat 05/10/2019 05/09/2020 1 1 Encounter Details Date Type Department Care Team (Late st Contact Info) Description 05/27/2019 4:00 PM EST Office Visit [place] [address] [place] [address] Type 2 diabetes mellitus with hyperglycemia, without [...] Breakfast ideas that include more protein: -1/2 Surinamese Muffin with 1 Tbsp peanut butter and apple slices from 1 whole apple. If apples are too hard to chew with dental issues sub 1/2 cup unsweetened apple sauce. -Lebanese yogurt or light yogurt that is 15 grams of carb or less per serving (look at total carbs) -store Yoozon chopper or [employer] grenadian yogurt or light yogurt, Rene Storyko's TripleZero [...] his past year she was hospitalized at [facility] on given Prednisone. Her blood sugars were high due to the steroid medication and during the brief hospital stay she was given meal associated insulin. Otherwise she has not been on meal associated insulin. Also reports another hospital stay at [facility] where she was delirious and she thinks [...] cm Height in inches 5' 2.75 Weight (Surinamese) 228 lbs 8 oz Weight (Metric) 103.6 [...] mouth daily. fluticasone propionate (FLONASE) 50 mcg/actuation [employer], Suspension 50 sprays by Each Nare route [...] Breakfast ideas that include more protein: -1/2 Surinamese Muffin with 1 Tbsp peanut butter and apple slices from 1 whole apple. If apples are too hard to chew with dental issues sub 1/2 cup unsweetened apple sauce. -Lebanese yogurt or light yogurt that is 15 grams of carb or less per serving (look at total carbs) -store T[employer] roger chopper or [employer] grenadian yogurt or light yogurt, Rene Story's TripleZero [...] 05/01/2024 11:20 AM EDT Appointment Mammography/[place] [address] Rodney Padilla MD [address] [place] [address] 05/01/2024 1:45 PM EDT Office [place] [address] Juanpablo Hernandez MD [facility] [address] 05/23/2024 2:45 PM EST Clinical Support Family Medicine at [facility] [address] [place] [address] Julia Low [facility] 01/30/2025 1:30 PM EDT Laboratory Appointment Lab at [facility] [place] Oncology [address] [place] [address] 01/30/2025 3:[address] [place] [address] Arturo Cordero MD [facility] [address] [place] [address] 01/30/2025 4:15 PM EDT Office Visit Hematology [place] [address] Arturo Cordero MD [facility] [address] [place] [address] Scheduled Referrals Name Type Priority Associated Diagnoses Orde r Schedule Referral to Diabetic Education Outpatient Referral Routine Type 2 diabetes mellitus without long-term current use of insulin Ordered: 05/10/2019 documented as of this encounter Visit Diagnoses Diagnosis Type 2 diabetes mellitus with hyperglycemia, without long-term current use of insulin documented in this encounter Care Teams Flight Attendant Inflight Services Relationship Specialty Start Date End Date Luis E Narayan MD [facility] [address] [place] [address] PCP - General Family Medicine 03/26/19 01/19/22 documented as of this encounter
--- OUTSIDE RECORDS SUMMARY | 2024-04-13 15:52 | XMS_ITS | Encounter Summary ---
Author Organization [facility] [place] [address] Care Team Providers Care Director Recreation Center Name Role Phone Luis E Narayan MD Primary Care Provider [phone] Encounter Details Date Type Department Care Team (Late st Contact Info) Description 04/12/2019 [place] [address] Avila Medina MD [facility] [place] [address] Social History Tobacco Use Types Packs/Day Years [...] 05/01/2024 11:20 AM EDT Appointment Mammography/[place] [address] Rodney Padilla MD [address] [place] [address] 05/01/2024 1:45 PM EDT Office [place] [address] Juanpablo Hernandez MD [facility] [place] [address] 05/23/2024 2:45 PM EST Clinical Support Family Medicine at [facility] [address] [place] [address] Julia Low [facility] 01/30/2025 1:30 PM EDT Laboratory Appointment Lab at [facility] Hematology Oncology [address] [place] [address] 01/30/2025 3:[address] [place] [address] Arturo Cordero MD [facility] [place] [address] 01/30/2025 4:15 PM EDT Office Visit Hematology [place] [address] Arturo Cordero MD [facility] [place] [address] documented as of this encounter Visit Diagnoses Not on filedocumented in this encounter Care Teams Director Recreation Center Relationship Specialty Start Date End Date Luis E Narayan MD [facility] [address] LIL[address] [facility]EV[address]O-[facility] [place] [address] PCP - General Family Medicine 03/26/19 01/19/22 documented as of this encounter
--- OUTSIDE RECORDS SUMMARY | 2024-04-13 15:52 | XMS_ITS | Encounter Summary ---
Author Organization [facility] [place] [address] Care Team Providers Care Rehabilitation Therapist Name Role Phone Luis E Narayan MD Primary Care Provider Reason for Visit * Reason Onset Date Comments Questions 06/13/2019 Encounter Details Date Type Department Care Team (Late st Contact Info) Description 06/13/2019 Telephone Family Medicine at [facility] [address] [place] [phone] George Lorenzo Questions Social History Tobacco Use [...] help schedule EEG. Please transfer back to cash processor, thank you. * Telephone Encounter - Shannon Ward RN - 06/24/2019 1:11 PM EST Voicemail msg left on identified phone to call clinic to discuss. Noted EEG ordered 05/02/19 and 05/10/19. Not scheduled yet. Note forwarded to cash processor to assist in scheduling. * Telephone Encounter [...] send - message: no Offered Appointment: n/a MA/Nurse/[place] contacted via: Message: y Call: n Pager: n documented in this encounter Plan of Treatment Upcoming Encounters Date Type Department Care Team (Late st Contact Info) Description 05/01/2024 11:20 AM EDT Appointment Mammography/[place] [address] Rodney Padilla MD [address] [place] [address] 05/01/2024 1:45 PM EDT Office [place] [phone] Juanpablo Hernandez MD [facility] [place] [address] 05/23/2024 2:45 PM EST Clinical Support Family Medicine at [facility] [address] [place] [address] Julia Low, [facility] 01/30/2025 1:30 PM EDT Laboratory Appointment Lab at [facility] Hematology Oncology [address] [place] [address] 01/30/2025 3:[address] [place] [address] Arturo Cordero MD [facility] [place] [address] 01/30/2025 4:15 PM EDT Office Visit Hematology [place] [address] Arturo Cordero MD [facility] [place] [address] documented as of this encounter Visit Diagnoses Not on filedocumented in this encounter Care Teams Rehabilitation Therapist Relationship Specialty Start Date End Date Luis E Narayan MD [facility] [address] [place] [address] PCP - General Family Medicine 03/26/19 01/19/22 documented as of this encounter
--- OUTSIDE RECORDS SUMMARY | 2024-04-13 15:52 | XMS_ITS | Encounter Summary ---
Author Organization [facility] [place] [address] Care Team Providers Care Ssis Ssrs Developer Name Role Phone Luis E Narayan MD Primary Care Provider Reason for Referral * Consultation (Routine) - Closed Specialty Diagnoses / Procedures Referred By Gonzalez kumari Referred To Contact Endocrinology Diagnoses Type 2 diabetes mellitus with hyperglycemia, without long-term current use of insulin Luis E Narayan MD [facility] [place] [address] [facility] Endocrinology [address] [place] [phone] Referral ID Status Reason Start Date Expiration Date V isits Requested Visits Authorized [id number] Closed Consult, Test & Treat 05/10/2019 05/09/2020 1 1 * Psychiatric (Routine) - Duplicate Referral Specialty Diagnoses / Procedures Referred By Gonzalez kumari Referred To Contact Psychiatry Diagnoses Altered mental status, unspecified altered mental status type Abnormal MRI of head Luis E Narayan MD [facility] [place] [address] [facility] Psychiatry [address] [place] [phone] Referral ID Status Reason Start Date Expiration Date Visits Requested Visits Authorized [id number] Duplicate Referral Consult, Test & Treat 05/10/2019 05/09/2020 1 1 Reason for Visit * Reason Comments Follow-up Encounter Details Date Type Department Care Team (Late st Contact Info) Description 05/10/2019 1:00 PM EDT Office Visit Family Medicine at [facility] [address] [place] [phone] Luis E Narayan MD [facility] [place] [address] Altered mental status, unspecified altered mental status [...] some of the symptoms. She did see [facility] Neurology for nerve conduction testing, and they [...] be part of cause of her neuropathy. [facility] Testing was negative for Lyme, Ehrlichia, babesia, [...] 11:20 AM EDT Appointment Mammography/[place] [address] Rodney Padilla MD [address] [place] [address] 05/01/2024 1:45 PM EDT Office [place] [phone] Juanpablo Hernandez MD [facility] [place] [address] 05/23/2024 2:45 PM EST Clinical Support Family Medicine at [facility] [address] [place] [address] Julia Low [facility] 01/30/2025 1:30 PM EDT Laboratory Appointment Lab at [facility] Hematology Oncology [address] [place] [address] 01/30/2025 3:[address] [place] [address] Arturo Cordero MD [facility] [place] [address] 01/30/2025 4:15 PM EDT Office Visit Hematology and Oncology at [facility] [place] [address] Arturo Cordero MD [facility] [place] [address] Scheduled Referrals Name Type Priority Associated Diagnoses [...] facility documented in this encounter Care Teams Ssis Ssrs Developer Relationship Specialty Start Date End Date Luis E Narayan MD [facility] [address] [place] [address] PCP - General Family Medicine 03/26/19 01/19/22 documented as of this encounter
--- OUTSIDE RECORDS SUMMARY | 2024-04-13 15:52 | XMS_ITS | Encounter Summary ---
Author Organization [facility] [place] [address] Care Team Providers Care Collection Systems Consultant Name Role Phone Luis E Narayan MD Primary Care Provider [phone] Reason for Referral * Consultation (Routine) - Closed Specialty Diagnoses / Procedures Referred By Gonzalez kumari Referred To Contact Sleep Center Diagnoses TITO (obstructive sleep apnea) Procedures PRG POLYLSOM 6+ YRS SLEEP W CPAP W 4+ ADDL ABHILASH Jhonny Garrett MD [facility] [place] [address] [facility] Sleep Medicine [address] [place] [address] Referral ID Status Reason Start Date Expiration Date V isits Requested Visits Authorized [id number] Closed Test Only 08/02/2019 01/30/2020 1 1 Reason for Visit * Consultation (Routine) - Specialty Diagnoses / Procedures Referred By Contchrissy kumari Referred To Contact Sleep Center Diagnoses TITO on CPAP Procedures PRG POLYSOM 6+ YRS SLEEP W 4+ ADDL ABHILASH Bonny Justin MD [place] [address] [facility] Sleep Medicine [address] [place] [address] Referral ID Status Reason Start Date Expiration Date Visits Requested Visits Authorized [id number] Specialty Service Requested 04/09/2019 04/08/2020 1 1 Encounter Details Date Type Department Care Team (Late st Contact Info) Description 05/09/2019 8:30 AM EDT Office Visit Sleep Center at [facility] [address] [place] [address] Jhonny Morataya MD [facility] [place] [address] RLS (restless legs syndrome); TITO (obstructive sleep [...] -Dr Morataya will send a prescription to [facility] for a new CPAP and supplies. [...] drive. If you get sleepy while driving cloth covered helmet puller and nap. You may resume driving once you feel alert. 12) Read No More Sleepless Nights by Mack Heaton PhD. 13) There are some on-line resources that do require a fee that can be of help. Two credible websites are as follows: http://www.TouchPal.Flocasts https://www.sleepio.com An star used by the [place] is as follows: CBT[employer] Psychologist documented in this encounter Progress Notes * [...] as she got lost getting to the [facility]. Sleep Medicine Summary: Sleep Medicine Consultation 02/18/10 [...] got sick in January - admitted to [facility]. She was admitted with possible pneumonia she [...] pm Lights out: she might like at [employer] for 10-20 min Latency: asleep quickly Awakenings: [...] total sleep time: deferred Questionnaires: Patient-reported scores: [facility] 05/09/2019 [place] [facility] 10 (High Risk) Insomnia Severity Index - Paper [place] of 10 Daytime Symptoms: Upon Awakening: she [...] during the illness over summer, she would cloth covered helmet puller and nap Close calls related to sleepiness: [...] Diagnosis Code ??? 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 Altered [...] Medical History: Diagnosis Date ??? 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 fluticasone propionate (FLONASE) 50 mcg/actuation [place], Suspension 50 sprays by Each Nare route [...] soda with lunch. Family: lives with a business systems architect but they have separate bedrooms ROS: CON: [...] Lateral leads Confirmed by MD Herminia, Jak ([id number]) on 02/15/2019 8:07:37 AM Assessment: Ms. Patience [...] results can be sent to them via [facility]. If a home care company is required the following home care company is requested: [facility] Recommendations: 1) Polysomnography in lab to titrate CPAP 2) Driving safety was reviewed with patient. If the patient feels too sleepy to drive he/she knows not to drive. If he/she becomes sleepy while driving he/she will cloth covered helmet puller and nap. 3) Replacement CPAP and supplies [...] 05/01/2024 11:20 AM EDT Appointment Mammography/[place] [address] Rodney Padilla MD [address] [facility] [place], [place] [id number] 05/01/2024 1:45 PM EDT Office [place] [address] Juanpablo Hernandez MD [facility] [place] [address] 05/23/2024 2:45 PM EST Clinical Support Family Medicine at [facility] [address] [place] [address] Julia Low, [facility] 01/30/2025 1:30 PM EDT Laboratory Appointment Lab at [facility] Hematology Oncology [address] [place] [address] 01/30/2025 3:[address] [place] [address] Arturo Cordero MD [facility] HEMATOLOGY [place] [address] 01/30/2025 4:15 PM EDT Office Visit H[place]ology [place] [address] Arturo Cordero MD [facility] HEMATOLOGY [place] [address] Scheduled Referrals Name Type Priority Associated Diagnoses [...] EDT) Hemoglobin 13.5 11.7 - 15.5 gm/dL [facility] Blood specimen (specimen) 05/09/2019 10:19 AM EDT 05/09/2019 12:53 PM EDT Narrative Resulting Agency Comment Spec In Lab Jhonny Morataya MD HEMATOLOGY ORDERABLE S Performing Organization Address City/[facility]/ZIP Co de Phone Number [facility] [place] [address] * Hematocrit (05/09/2019 10:19 AM EDT) Hematocrit 41.5 35.7 - 45.8 % [facility] Blood specimen (specimen) 05/09/2019 10:19 AM EDT 05/09/2019 12:53 PM EDT Narrative Resulting Agency Comment Spec In Lab Jhonny Morataya MD HEMATOLOGY ORDERABLE S Performing Organization Address [facility]/ZIP Co de Phone Number [facility] [place] [address] * (ABNORMAL) Iron and TIBC (05/09/2019 10:19 AM EDT) Iron 46 30 - 150 mcg/dL [facility] TIBC 363 250 - 450 mcg/dL [facility] Iron Saturation 13(L) 20 - 50 % [facility] Blood specimen (specimen) 05/09/2019 10:19 AM EDT 05/09/2019 12:54 PM EDT Narrative Resulting Agency Comment Spec In Lab Jhonny Morataya MD CHEMISTRY ORDERABLES Performing Organization Address City/[facility]/ZIP Co de Phone Number [facility] [place] [address] * Ferritin (05/09/2019 10:19 AM EDT) Ferritin 55 30 - 400 ng/mL [facility] Comment: Pediatric reference ranges not verified at [facility], interpret with caution. Reference ranges for females greater than 50 years of age approach values for men, i.e., 30-400 ng/mL. Blood specimen (specimen) 05/09/2019 10:19 AM EDT 05/09/2019 12:53 PM EDT Narrative Resulting Agency Comment Spec In Lab Jhonny Morataya MD CHEMISTRY ORDERABLES [facility] [place] [address] documented in this encounter Visit Diagnoses Diagnosis RLS (restless legs syndrome) Restless legs syndrome (RLS) TITO (obstructive sleep apnea) Obstructive sleep apnea (adult) (pediatric) Chronic insomnia Insomnia, unspecified documented in this encounter Care Teams Collection Systems Consultant Relationship Specialty Start Date End Date Luis E Narayan MD [facility] [address] [place] [address] PCP - General Family Medicine 03/26/19 01/19/22 documented as of this encounter
--- OUTSIDE RECORDS SUMMARY | 2024-04-13 15:52 | XMS_ITS | Encounter Summary ---
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 [place] [address] [facility] [place] [address] Referral ID Status Reason Start Date Expiration Date V isits Requested Visits Authorized [id number] Closed Specialty Service Requested 06/25/2019 08/23/2019 1 1 Encounter Details Date Type Department Care Team (Latest Contact Info) Description 06/27/2019 10:19 AM EST - 06/27/2019 1:05 PM EST Hospital Encounter Non-[place] [address] Luis E Narayan MD 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 [place] [address] 05/23/2024 2:45 PM EST Clinical Support [facility] Medicine at [facility] [address] [place] [address] Julia Low [facility] 01/30/2025 1:30 PM EDT Laboratory Appointment Lab at [facility] Hematology Oncology [address] [place] [address] 01/30/2025 3:[address] [place] [address] Arturo Cordero MD [facility] [address] [place] [address] 01/30/2025 4:15 PM EDT Office Visit Hematology [place] [address] Arturo Cordero MD 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 [id number] ?Sex: ?F ? Site Loc: ? [facility] ?Ht / Wt: ??158(cm)/101(kg) Pt. Loc: ?Echo Lab ?BSA: ?2.01 Study Date: ?? 06/27/2019 ?Pt. Type: Outpatient Tape: ? Referring: PIOTR Reading: Jeff Barraza ??([id number]) Vamp Creaser: Sumit Ratliff RDCS Diagnosis: *Edema, unspecified (R60.9) *Atherosclerotic heart disease of curyung coronary artery with unspecified angina pectoris (I25.119) [...] E-wave Vmax ?1 ?m/sec ? MV deceleration ibfd333.5 ?msec ? MV A-wave Vmax ?1 ?m/sec [...] ? Mid-Inferior ?Normal ? Mid-Inferoseptal ?Normal ? Hallie-Septal ? Normal ? Hallie-Anterior ? Normal ? Hallie-Lateral ?Normal ? Hallie-Inferior ? Normal ? Hallie-Tip ?Normal ? This report has been electronically signed by: Jeff Barraza MD ? 06/27/2019 11:51:50 Images reviewed and interpretation verified [facility] Cardiac Ultrasound Laboratory Procedure Note Jeff Barraza MD - 06/27/2019 Procedure: Transthoracic Echocardiogram Patient: JOSSELINE LOMAX(Age): 1960(58y) Med Rec#: [id number] Sex: F Site Loc: [facility] Ht / Wt: 158(cm)/101(kg) Pt. Loc: Echo Lab BSA: 2.01 Study Date: 06/27/2019 Pt. Type: Outpatient Tape: Referring: PIOTR Reading: Jeff Barraza ([id number]) Vamp Creaser: Sumit Ratliff [facility] Diagnosis: *Edema, unspecified (R60.9) *Atherosclerotic heart disease of curyung coronary artery with unspecified angina pectoris (I25.119) [...] MV E-wave Vmax 1 m/sec MV deceleration eaqp320.5 msec MV A-wave Vmax 1 m/sec MV [...] Normal Mid-Posterolateral Normal Mid-Inferior Normal Mid-Inferoseptal Normal Hallie-Septal Normal Hallie-Anterior Normal Hallie-Lateral Normal Hallie-Inferior Normal Hallie-Tip Normal This report has been electronically signed by: Jeff Barraza MD 06/27/2019 11:51:50 Images reviewed and interpretation verified [facility] Cardiac Ultrasound Laboratory Luis E Narayan MD ECHO ORDERABLES documented in this encounter Visit Diagnoses Diagnosis Peripheral edema Edema 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 DR [address] [place] [address] PCP - General Family Medicine 03/26/19 01/19/22 documented as of this encounter
--- OUTSIDE RECORDS SUMMARY | 2024-04-13 15:52 | XMS_ITS | Encounter Summary ---
[place] [address] Care Team Providers Care Space And Missile Operations Name Role Phone Luis E Narayan MD Primary Care Provider [phone] Encounter Details Date Type Department Care Team (Latest Contact Info) Description 05/02/2019 10:55 AM EDT Laboratory Appointment Lab [address] [address] Cognitive and behavioral changes Social History Tobacco [...] 11:20 AM EDT Appointment Mammography/[place] [address]1000 Rodney Padilla MD [address] [place] [place] [address] 05/01/2024 1:45 PM EDT Office Visit [place] [address] Juanpablo Hernandez MD [facility] OPHTHALMOLOGY [place], [place] [phone] 05/23/2024 2:45 PM EST Clinical Support Family Medicine at [address] [place] [address] Julia Low [facility] 01/30/2025 1:30 PM EDT Laboratory Appointment Lab at [facility] Hematology Oncology [address] [place] [address] 01/30/2025 3:[address] [place] [address] Arturo Cordero MD [facility] DR [place] [address] 01/30/2025 4:15 PM EDT Office Visit Hematology [place] [address] Arturo Cordero MD [facility] DR [place] [address] documented as of this encounter Procedures Procedure Name Priority Date/Time Associated Diagnosis Comments HC PCH THIAMIN LVL(VITAMIN B1) -ARIAS Routine 05/02/2019 11:15 AM EDT Cognitive and behavioral changes HC SERUM PROT. ELECTROPHORESIS Routine 05/02/2019 11:15 AM EDT Cognitive and behavioral changes documented in this encounter Results * Protein Electrophoresis, serum (05/02/2019 11:15 AM EDT) Total Prot Electrophoresis 6.5 6.1 - 8.0 gm/dL [facility] Albumin Electrophoresis 4.17 3.60 - 6.00 gm/dL [facility] Alpha 1 Globulin 0.19 0.10 - 0.30 gm/dL [facility] Alpha 2 Globulin 0.65 0.40 - 0.90 gm/dL [facility] Beta Globulin 0.71 0.50 - 1.00 gm/dL [facility] Gamma Globulin 0.79 0.50 - 1.30 gm/dL [facility] M1 Band None Detected None Detected [facility] Blood specimen (specimen) 05/02/2019 11:15 AM EDT 05/02/2019 11:24 AM EDT Narrative Resulting Agency Comment Spec In Lab Sumit Pineda MD CHEMISTRY ORDERABLES Performing Organization Address [facility] Co de Phone Number [facility] [place] [place] [address] * Vitamin B1, whole blood (05/02/2019 11:15 AM EDT) Vit B1 Lvl Wb (NOVEMBER) 173 70 - 180 nmol/L [facility] Comment: ADDITIONAL INFORMATION This test was developed and its performance characteristics determined by [facility] in a manner consistent with CLIA requirements. This test has not been cleared or approved by the U.S. Food and Drug Administration. Test Performed by: [facility] - [place] [id number] Chairman And Ceo: Jose G Jefferson M.D. Ph.D.; CLIA# [id number] Blood specimen (specimen) 05/02/2019 11:15 AM EDT 05/02/2019 1:43 PM EDT Narrative Resulting Agency Comment Spec In Lab Sumit Pineda MD LAB SEND OUT ORDERAB LES Performing Organization Address [facility] Co de Phone Number [facility] [place] [address] documented in this encounter Visit Diagnoses Diagnosis Cognitive and behavioral changes Other signs and symptoms involving cognition documented in this encounter Care Teams Space And Missile Operations Relationship Specialty Start Date End Date Luis E Narayan MD [facility] [place] [address] PCP - General Family Medicine 03/26/19 01/19/22 documented as of this encounter
--- OUTSIDE RECORDS SUMMARY | 2024-04-13 15:53 | XMS_ITS | Encounter Summary ---
Author Organization [facility] [place] [address] Care Team Providers Care Sliver Former Name Role Phone Brenda Canchola MD Primary Care Provider Encounter Details Date Type Department Care Team (Late st Contact Info) Description 09/22/2011 Ancillary Procedure Radiology Library at [facility] [place] [address] Luis E Narayan MD [facility] [place] [address] Social History Tobacco Use Types Packs/Day Years [...] 05/01/2024 11:20 AM EDT Appointment Mammography/[place] [address] Rodney Padilla MD [address] [place] [address] 05/01/2024 1:45 PM EDT Office [place] [address] Juanpablo Hernandez MD [facility] [place] [address] 05/23/2024 2:45 PM EST Clinical Support Family Medicine at [facility] [address] [place] [address] Julia Low, [facility] 01/30/2025 1:30 PM EDT Laboratory Appointment Lab at [facility] Hematology Oncology [address] [place] [address] 01/30/2025 3:[address] [place] [address] Arturo Cordero MD [facility] DR [place] [address] 01/30/2025 4:15 PM EDT Office Visit Hematology [place] [address] Arturo Cordero MD [facility] DR [place] [address] documented as of this encounter Procedures Procedure Name Priority Date/Time Associated Diagnosis Comments FILM LIBRARY STORAGE ONLY MAMMO Routine 09/22/2011 12:00 AM EDT documented in this encounter Results * Film Library- Storage Only Mammo (09/22/2011 12:00 AM EDT) Narrative [facility] - 05/24/2019 9:45 PM EST This exam is auto-finalizing. It's purpose is for storage only. Luis E Narayan MD IMG FILM LIBRARY OR DERABLES [place], [place] documented in this encounter Visit Diagnoses Not on filedocumented in this encounter Care Teams Sliver Former Relationship Specialty Start Date End Date Brenda Canchola MD [address] [place] [address] PCP - General 06/01/10 03/25/19 documented as of this encounter
--- OUTSIDE RECORDS SUMMARY | 2024-04-13 15:53 | XMS_ITS | Encounter Summary ---
[place] [address] Care Team Providers Care Arcgis Developer Name Role Phone Brenda Renee MD Primary Care Provider [phone] Encounter Details Date Type Department Care Team (Latest Contact Info) Description 07/22/2013 3:11 PM EST - 07/22/2013 11:59 PM EST [place] [address] CLINIC, Brenda Greenwood MD [address] [place] [address] Discharge Disposition: Home Social History [...] Gramajo AGE: 52 y.o. : 1960 Female [phone] (home) Telephone Information: PCP CERAMIC COATER MACHINE BRENDA RENEE MD None Allergies Allergen Reactions ??? Codeine Phosphate Nausea And Vomiting ??? Erythromycin Base Nausea Only ??? Nsaids (Non-Steroidal Anti-Inflammatory Drug) Nausea And Vomiting Date/Time of call: July 19, 2013/1:37 PM/ PREVIOUS MRI SCAN? Yes, many years [place] [facility] HEIGHT: 63 1/2 WEIGHT: 270# (confirmed large [...] HR. 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 PT STATED TO [employer] THAT THE SEDATION WAS EFFECTIVE FOR SCAN: Y N COMMENTS: This patient has been informed that they require a driver retraining instructor to drive them home after this procedure. In the absence of a driver retraining instructor, IR will not be able to perform [...] 05/01/2024 11:20 AM EDT Appointment Mammography/[place] [address] Rodney Padilla MD [address] [place] [place] [address] 05/01/2024 1:45 PM EDT [place] [address] Juanpablo Hernandez MD [facility] [place] [address] 05/23/2024 2:45 PM EST Clinical Support Family Medicine at [facility] [address] [place] [address] Julia Low RPH 01/30/2025 1:30 PM EDT Laboratory Appointment Lab at [facility] Hematology Oncology [address] [place] [address] 01/30/2025 3:[address] [place] [place] [address] Arturo Cordero MD [facility] [place]ATOLOG[place] [address] 01/30/2025 4:15 PM EDT Office Visit [place]ology [place] [address] Arturo Cordero MD [facility] [place] [address] documented as of this encounter Procedures Procedure [...] in the context of the clinical situation. (Reference-Loreta et al, [id number]) Findings: (prevalence in patients without low back pain), Diskdegeneration (decreased T2 signal, height loss, bulge) (91%), Disk T2-signal loss(83%), Disk height loss (56%), Disk bulge (64%), Disk protrusion (32%), Annular fissure (38%). Film and interpretation reviewed by the attending Brenda Renee MD IMG MRI ORDERABLES documented in this encounter Visit Diagnoses Not on filedocumented in this encounter Care Teams Arcgis Developer Relationship Specialty Start Date End Date Brenda Renee MD [address] [place] [address] PCP - General 06/01/10 03/25/19 documented as of this encounter
--- OUTSIDE RECORDS SUMMARY | 2024-04-13 15:53 | XMS_ITS | Encounter Summary ---
Author Organization [facility] [place] [address] Care Team Providers Care Assistant Analyst Name Role Phone Brenda Canchola MD Primary Care Provider [phone] Encounter Details Date Type Department Care Team (Late st Contact Info) Description 03/19/2019 Ancillary Procedure Radiology Library at [facility] [place] [address] Luis E Narayan MD [facility] [place] [place] [address] Social History Tobacco Use Types Packs/Day Years [...] 05/01/2024 11:20 AM EDT Appointment Mammography/[place] [address] Rodney Padilla MD [address] [place] [address] 05/01/2024 1:45 PM EDT Office Visit [place] [address] Juanpablo Hernandez MD [facility] [place] [place] [address] 05/23/2024 2:45 PM EST Clinical Support Family Medicine at [facility] [address] [place] [address] Julia Low, [facility] 01/30/2025 1:30 PM EDT Laboratory Appointment Lab at [facility] Hematology Oncology [address] [place] [address] 01/30/2025 3:[address] [place] [address] Arturo Cordero MD [facility] [place] [address] 01/30/2025 4:15 PM EDT Office Visit Hematology [place] [address] Arturo Cordero MD [facility] [place] [address] documented as of this encounter Procedures Procedure Name Priority Date/Time Associated Diagnosis Comments FILM LIBRARY STORAGE ONLY CT ABDOMEN AND PELVIS STAT 03/19/2019 12:00 AM EDT documented in this encounter Results * Film Library- Storage Only CT Abdomen & Pelvis (03/19/2019 12:00 AM EDT) Narrative [facility] - 03/28/2019 11:04 AM EDT This exam is auto-finalizing. It's purpose is for storage only. Luis E Narayan MD IMG FILM LIBRARY OR DERABLES [place], [place] documented in this encounter Visit Diagnoses Not on filedocumented in this encounter Care Teams Assistant Analyst Relationship Specialty Start Date End Date Brenda Canchola MD [address] [place] [address] PCP - General 06/01/10 03/25/19 documented as of this encounter
--- OUTSIDE RECORDS SUMMARY | 2024-04-13 15:53 | XMS_ITS | Encounter Summary ---
Author Organization [facility] [place] [address] Care Team Providers Care Stock Mixer Name Role Phone Brenda Canchola MD Primary Care Provider [phone] Encounter Details Date Type Department Care Team (Late st Contact Info) Description 06/15/2010 2:40 PM EST [place] [address] Noreen Brambila MD [facility] [address] [facility] [place] [address] Social History Tobacco Use Types Packs/Day Years Used Date Smoking Tobacco: Never Assessed Sex and Gender Information Value Date Recorded Sex Assigned at Not on file Gender Identity Not on file Sexual Orientation Not on file documented as of this encounter Plan of Treatment Upcoming Encounters Date Type Department Care Team (Late st Contact Info) Description 05/01/2024 11:20 AM EDT Appointment Mammography/[place] [address] Rodney Padilla MD [address] [place] [address] 05/01/2024 1:45 PM EDT Office [place] [address] Juanpablo Hernandez MD [facility] [place] [address] 05/23/2024 2:45 PM EST Clinical Support Family Medicine at [facility] [address] [place] [address] Julia Low [facility] 01/30/2025 1:30 PM EDT Laboratory Appointment Lab at [facility] Hematology Oncology [address] [place] [address] 01/30/2025 3:[address] [place] [address] Arturo Cordero MD [facility] DR HEMATOLOGY [place] [address] 01/30/2025 4:15 PM EDT Office Visit Hematology [place] [address] Arturo Cordero MD [facility] DR HEMATOLOGY [place] [address] documented as of this encounter Visit Diagnoses Not on filedocumented in this encounter Care Teams Stock Mixer Relationship Specialty Start Date End Date Brenda Canchola MD [address] [place] [address] PCP - General 06/01/10 03/25/19 documented as of this encounter
--- OUTSIDE RECORDS SUMMARY | 2024-04-13 15:53 | XMS_ITS | Encounter Summary ---
Author Organization [facility] [place] [address] Care Team Providers Care Pipe Buffer Name Role Phone Brenda Canchola MD Primary Care Provider [phone] Encounter Details Date Type Department Care Team (Late st Contact Info) Description 06/15/2010 2:35 PM EST [place] [address] Sterling Dubois MD [facility] [place] [address] Social History Tobacco Use Types Packs/Day Years Used Date Smoking Tobacco: Never Assessed Sex and Gender Information Value Date Recorded Sex Assigned at Not on file Gender Identity Not on file Sexual Orientation Not on file documented as of this encounter Plan of Treatment Upcoming Encounters Date Type Department Care Team (Late st Contact Info) Description 05/01/2024 11:20 AM EDT Appointment Mammography/[place] [address] Rodney Padilla MD [address] [place] [address] 05/01/2024 1:45 PM EDT Office [place] [address] Juanpablo Hernandez MD [facility] [place] [address] 05/23/2024 2:45 PM EST Clinical Support Family Medicine at [facility] [address] [place] [address] Julia Low [facility] 01/30/2025 1:30 PM EDT Laboratory Appointment Lab at [facility] Hematology Oncology [address] [place] [address] 01/30/2025 3:[address] [place] [address] Arturo Cordero MD [facility] DR HEMATOLOGY [place] [address] 01/30/2025 4:15 PM EDT Office Visit Hematology [place] [address] Arturo Cordero MD [facility] DR HEMATOLOGY [place] [address] documented as of this encounter Visit Diagnoses Not on filedocumented in this encounter Care Teams Pipe Buffer Relationship Specialty Start Date End Date Brenda Canchola MD [address] [place] [address] PCP - General 06/01/10 03/25/19 documented as of this encounter
--- OUTSIDE RECORDS SUMMARY | 2024-04-13 15:53 | XMS_ITS | Encounter Summary ---
[place] [address] Care Team Providers Care Airline Pilot Name Role Phone Luis E Narayan MD Primary Care Provider [phone] Reason for Referral * Consultation (Routine) - Closed Specialty Diagnoses / Procedures Referred By Gonzalez kumari Referred To Contact Neurology Diagnoses Abnormal MRI of head Luis E Narayan MD [facility] [address] [place] [address] [facility] Neurology [address] [place] [phone] Referral ID Status Reason Start Date Expiration Date V isits Requested Visits Authorized [id number] Closed Specialty Service Requested 03/28/2019 03/27/2020 1 1 Reason for Visit * Reason Onset Date Comments Results 03/28/2019 Encounter Details Date Type Department Care Team (Late st Contact Info) Description 03/28/2019 Telephone Family Medicine at [facility] [address] [place] [phone] Ally Palomo Results Social History Tobacco Use [...] EDT Is she wants to set up [facility], I can send her messages directly.... The [...] and relationship (if other than patient-full name): Alizereinaldo Gramajo - patient Best time to call back: any Ok to leave a message: yes Ok to send - message MA/Nurse contacted via: Message: yes Call: no Pager: no documented in this encounter Plan of Treatment Upcoming Encounters Date Type Department Care Team (Late st Contact Info) Description 05/01/2024 11:20 AM EDT Appointment Mammography/[place] [address] Rodney Padilla MD [address] [place] [place] [address] 05/01/2024 1:45 PM EDT Office [place] [address] Juanpablo Hernandez MD [facility] [place] [address] 05/23/2024 2:45 PM EST Clinical Support Family Medicine at [facility] [address] [place] [address] Julia Low RPH 01/30/2025 1:30 PM EDT Laboratory Appointment Lab at [facility] Hematology Oncology [address] [place] [address] 01/30/2025 3:[address] [place] [address] Arturo Cordero MD [facility] [place] [address] 01/30/2025 4:15 PM EDT Office Visit Hematology [place] [address] Arturo Cordero MD [facility] [place] [address] Scheduled Referrals Name Type Priority Associated Diagnoses Orde r Schedule Referral to Neurology Outpatient Referral Routine Abnormal MRI of head Ordered: 03/28/2019 documented as of this encounter Visit Diagnoses Diagnosis Abnormal MRI of head Nonspecific (abnormal) findings on radiological and other examination of skull and head Atherosclerosis of [place] coronary artery of [place] heart with angina pectoris documented in this encounter Care Teams Airline Pilot Relationship Specialty Start Date End Date Luis E Narayan MD [facility] [address] [place] [address] PCP - General Family Medicine 03/26/19 01/19/22 documented as of this encounter
--- OUTSIDE RECORDS SUMMARY | 2024-04-13 15:53 | XMS_ITS | Encounter Summary ---
Author Organization [facility] [place] [address] Care Team Providers Care Stretcher Drier Operator Name Role Phone Brenda Canchola MD Primary Care Provider [phone] Encounter Details Date Type Department Care Team (Late st Contact Info) Description 01/31/2014 Ancillary Procedure Radiology Library at [facility] [place] [phone] Luis E Narayan MD [facility] [place] [address] Social History Tobacco Use Types Packs/Day Years [...] 05/01/2024 11:20 AM EDT Appointment Mammography/[place] [address] Rodney Padilla MD [address] [place] [address] 05/01/2024 1:45 PM EDT Office [place] [address] Juanpablo Hernandez MD [facility] [place] [address] 05/23/2024 2:45 PM EST Clinical Support Family Medicine at [facility] [address] [place] [address] Julia Low, [facility] 01/30/2025 1:30 PM EDT Laboratory Appointment Lab at [facility] [place] On[place] [address] [place] [address] 01/30/2025 3:[address] [place] [address] Arturo Cordero MD [facility] DR [place] [address] 01/30/2025 4:15 PM EDT Office Visit Hematology [place] [address] Arturo Cordero MD [facility] DR [place] [address] documented as of this encounter Procedures Procedure Name Priority Date/Time Associated Diagnosis Comments FILM LIBRARY STORAGE ONLY MAMMO Routine 01/31/2014 12:00 AM EDT documented in this encounter Results * Film Library- Storage Only Mammo (01/31/2014 12:00 AM EDT) Narrative [facility] - 05/24/2019 9:46 PM EST This exam is auto-finalizing. It's purpose is for storage only. Luis E Narayan MD IMG FILM LIBRARY OR DERABLES [place], [place] documented in this encounter Visit Diagnoses Not on filedocumented in this encounter Care Teams Stretcher Drier Operator Relationship Specialty Start Date End Date Brenda Canchola MD [address] [place] [address] PCP - General 06/01/10 03/25/19 documented as of this encounter
--- OUTSIDE RECORDS SUMMARY | 2024-04-13 15:53 | XMS_ITS | Encounter Summary ---
[place] [address] Care Team Providers Care General Accounting Clerk Name Role Phone Brenda Canchola MD Primary Care Provider Reason for Visit * Reason Comments Follow-up neurocognitive impai rment Encounter Details Date Type Department Care Team (Late st Contact Info) Description 10/14/2010 3:00 PM EDT [place] [address] Chuy Barbosa MD [facility] [place] [address] Forgetfulness (Primary Dx) Discharge Disposition: Home Social [...] 05/01/2024 11:20 AM EDT Appointment Mammography/[place] [address] Rodney Padilla MD [address] [facility] [place] [address] 05/01/2024 1:45 PM EDT Office [place] [address] Juanpablo Hernandez MD [facility] [place] [address] 05/23/2024 2:45 PM EST Clinical Support Family Medicine at [facility] [address] [place] [address] Julia Low [facility] 01/30/2025 1:30 PM EDT Laboratory Appointment Lab at [facility] Hematology Oncology [address] [place] [address] 01/30/2025 3:[address] [place] [address] Arturo Cordero MD [facility] DR HEMATOLOGY [place] [address] 01/30/2025 4:15 PM EDT Office Visit Hematology [place] [address] Arturo Cordero MD [facility] DR HEMATOLOGY [place] [address] documented as of this encounter Visit Diagnoses Diagnosis Forgetfulness- Primary Other general symptoms documented in this encounter Care Teams General Accounting Clerk Relationship Specialty Start Date End Date Brenda Canchola MD [address] [place] [address] PCP - General 06/01/10 03/25/19 documented as of this encounter
--- OUTSIDE RECORDS SUMMARY | 2024-04-13 15:53 | XMS_ITS | Encounter Summary ---
Author Organization [facility] [place] [address] Care Team Providers Care Gathering Worker Name Role Phone Unavailable Primary Care Provider Unavailabl e Encounter Details Date Type Department Care Team (Late st Contact Info) Description 03/10/2010 Ancillary Procedure Radiology Library at [facility] [place] [phone] Luis E Narayan MD [facility] [place] [place] [address] Social History Tobacco Use Types Packs/Day Years Used Date Smoking Tobacco: Never Assessed Sex and Gender Information Value Date Recorded Sex Assigned at Not on file Gender Identity Not on file Sexual Orientation Not on file documented as of this encounter Plan of Treatment Upcoming Encounters Date Type Department Care Team (Late st Contact Info) Description 05/01/2024 11:20 AM EDT Appointment Mammography/[place] [address] Rodney Padilla MD [address] [place] [address] 05/01/2024 1:45 PM EDT Office [place] [address] Juanpablo Hernandez MD [facility] [address] 05/23/2024 2:45 PM EST Clinical Support Family Medicine at [facility] [address] [place] [address] Julia Low, [facility] 01/30/2025 1:30 PM EDT Laboratory Appointment Lab at [facility] [place] [address] [place] [address] 01/30/2025 3:[address] [place] [address] Arturo Cordero MD [facility] [place] [address] 01/30/2025 4:15 PM EDT Office Visit Hematology [place] [address] Arturo Cordero MD [facility] [place] [address] documented as of this encounter Procedures Procedure Name Priority Date/Time Associated Diagnosis Comments FILM LIBRARY STORAGE ONLY MAMMO Routine 03/10/2010 12:00 AM EDT documented in this encounter Results * Film Library- Storage Only Mammo (03/10/2010 12:00 AM EDT) Narrative [facility] - 05/24/2019 9:43 PM EST This exam is auto-finalizing. It's purpose is for storage only. Luis E Narayan MD IMG FILM LIBRARY OR DERABLES [place], [place] documented in this encounter Visit Diagnoses Not on filedocumented in this encounter
--- OUTSIDE RECORDS SUMMARY | 2024-04-13 15:53 | XMS_ITS | Encounter Summary ---
[place] [address] Care Team Providers Care Sewage Screen Operator Name Role Phone Brenda Canchola MD Primary Care Provider [phone] Reason for Visit * Reason Comments Anxiety Encounter Details Date Type Department Care Team ([facility] st Contact Info) Description 02/14/2019 9:50 PM EDT - 02/15/2019 12:12 AM EDT [place] [address] Tony Monique MD [address] [place] [address] [place] [address] Anxiety Discharge Disposition: Home Social History Tobacco [...] sent through Care Everywhere. * Anxiety Disorder (Icelandic) * Generalized Anxiety Disorder: General Info (Icelandic) documented in this encounter Medications at Time of Discharge Medication Sig Dispensed Refills Start Date End Date amLODIPine (NORVASC) 5 mg Tablet Take 5 mg by mouth daily. 4 02/12/2019 04/09/2019 simvastatin (ZOCOR) 10 mg Tablet Take 10 mg by mouth daily. 4 11/26/2018 04/09/2019 fluticasone propionate (FLONASE) 50 mcg/actuation Delta, Suspension 50 sprays by Each Nare route [...] as recent psychogenic polydipsia with admission to [facility] and was discharged roughly 1 [...] with anxiety. Patient was recently admitted to [place] in mid-January with community acquired pneumonia. 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 She was discharged ~1wk ago. Patient reports that she has edema with bilateral lower extremity swelling, and that was her primary concern for coming into the emergency department tonight. She was also concerned because her home blood pressure monitor was not working. She had bilateral lower extremity swelling during her stay at [facility] last week. She was given [...] 05/01/2024 11:20 AM EDT Appointment Mammography/[place] [address] Rodney Padilla MD [address] [place] [address] 05/01/2024 1:45 PM EDT Office [place] [address] Juanpablo Hernandez MD [facility] [place] [address] 05/23/2024 2:45 PM EST Clinical Support Family Medicine at [facility] [address] [place] [address] Julia Low, [facility] 01/30/2025 1:30 PM EDT Laboratory Appointment Lab at [facility] Hematology Oncology [address] [place] [address] 01/30/2025 3:[address] [place] [address] Arturo Cordero MD [facility] DR [place] [address] 01/30/2025 4:15 PM EDT Office Visit Hematology [place] [address] Arturo Cordero MD [facility] DR [place] [address] documented as of this encounter Procedures Procedure [...] (02/14/2019 10:54 PM EDT) Plat estimate Normal [facility] RBC Morphology Normal [facility] Blood specimen (specimen) 02/14/2019 10:54 PM EDT 02/14/2019 11:09 PM EDT Narrative Resulting Agency Comment Spec In Lab Yahir Okeefe MD HEMATOLOGY ORDERABL ES Performing Organization Address City/[facility]/ZIP Co de Phone Number [facility] [place] [address] * Gold Tube HOLD (02/14/2019 10:54 PM EDT) [facility] Signature Gold Hold Sample in lab. [facility] Blood specimen (specimen) Venous Draw / Unknown 02/14/2019 10:54 PM EDT 02/14/2019 11:09 PM EDT Yahir Okeefe MD CHEMISTRY ORDERABLE S [facility] [place] [address] * Blue Tube HOLD (02/14/2019 10:54 PM EDT) Blue Hold Sample in lab. [facility] Blood specimen (specimen) Venous Draw / Unknown 02/14/2019 10:54 PM EDT 02/14/2019 11:09 PM EDT Yahir Okeefe MD HEMATOLOGY ORDERABL ES Performing Organization Address City/[facility]/[place] [address] * Differential, Automated (02/14/2019 10:54 PM EDT) Neutrophil % 52.0 % [facility] Neutrophil Absolute 3.75 1.70 - 6.10 x10(3)/[facility] Lymph % 35.2 % [facility] Lymphocytes Abs 2.5 0.9 - 3.2 x10(3)/[facility] Monocyte % 9.0 % [facility] Monocyte Abs 0.6 0.3 - 0.9 x10(3)/[facility] Eos % 2.8 % [facility] Eosinophils Abs 0.2 0.0 - 0.4 x10(3)/[facility] Basophil % 0.6 % [facility] Baso Absolute 0.0 0.0 - 0.1 x10(3)/[facility] Immature Gran % 0.40 % [facility] Comment: Immature granulocytes(IG's)percentage and absolute [...] MD HEMATOLOGY ORDERABL ES Performing Organization Address City/[facility]/ZIP Co de Phone Number [facility] [place] [address] * (ABNORMAL) Hemogram (02/14/2019 10:54 PM EDT) White Blood Cell 7.2 4.0 - 9.5 x10(3)/ L [facility] Red Blood Cell 4.11 4.00 - 5.21 x10(6)/ L [facility] Hemoglobin 12.0 11.7 - 15.5 gm/dL [facility] Hematocrit 36.3 35.7 - 45.8 % [facility] Mean Cell Volume 88.3 82.6 - 94.4 fL [facility] Mean Cell Hemoglobin 29.2 27.1 - 32.0 pg [facility] Mean Cell Hemoglobin Concentration 33.1 31.7 - 35.0 gm/dL [facility] Platelet 366(H) 145 - 357 x10(3)/[facility] RDW Standard Deviation 45.5 37.0 - 46.0 fL [facility] RDW coefficient of variation 14.3(H) 11.5 - 14.1 % [facility] Mean Platelet Volume 8.6 7.6 - 12.9 fL [facility] NRBC% auto 0.0 % [facility] NRBC Absolute 0.000 0.000 - 0.000 x10(3)/[facility] Blood specimen (specimen) 02/14/2019 10:54 PM EDT 02/14/2019 11:09 PM EDT Narrative Resulting Agency Comment Spec In Lab Yahir Okeefe MD HEMATOLOGY ORDERABL ES [facility] [place] [address] * T4, free (02/14/2019 10:54 PM EDT) Free T4 1.00 0.93 - 1.70 ng/dL [facility] Blood specimen (specimen) 02/14/2019 10:54 PM EDT 02/14/2019 11:09 PM EDT Narrative Resulting Agency Comment Spec In Lab Tony Monique MD CHEMISTRY ORDERABLES Performing Organization Address City/[facility]/ZIP Co de Phone Number [facility] [place] [address] * (ABNORMAL) TSH (02/14/2019 10:54 PM EDT) Thyroid Stimulating Hormone 4.60(H) 0.27 - 4.20 mcIU/mL [facility] Blood specimen (specimen) 02/14/2019 10:54 PM EDT 02/14/2019 11:09 PM EDT Narrative Resulting Agency Comment Spec In Lab Tony Monique MD CHEMISTRY ORDERABLES Performing Organization Address [facility] Co de Phone Number [facility] [place] [address] * Basic Metabolic Panel (non-fasting) (02/14/2019 10:54 PM EDT) Glucose 147 65 - 199 mg/dL [facility] Comment:Diabetes: >=200 mg/d L plus symptoms Blood Urea Nitrogen 11 8 - 18 mg/dL [facility] Creatinine 0.76 0.70 - 1.20 mg/dL [facility] Sodium 140 135 - 145 mmol/L [facility] Potassium 3.9 3.5 - 5.0 mmol/L [facility] Comment: Please note: ??Patients with WBC >100,000 may have falsely elevated Potassium levels. ??For accurate Potassium quantification in these patients send serum separator tube (gold top) for subsequent determinations. ??Contact the Clinical Chemistry Laboratory if there are any questions. Chloride 102 98 - 107 mmol/L [facility] Carbon Dioxide 28 22 - 31 mmol/L [facility] Anion Gap 10 5 - 15 mmol/L [facility] Calcium 9.2 8.5 - 10.5 mg/dL [facility] Est Glomerular Filtration Rate 86 >=60 mL/min/1. 73 m?? [facility] Comment: The eGFR was calculated using the CKD-EPI equation. As with all creatinine based estimates of kidney function, eGFR values calculated with the CKD-EPI equation are not accurate in patients with acute kidney failure, extremes of body mass or the acutely ill. [email or web address]/[email or web address]nkf eGFR 100 >=60 mL/min/1. 73 m?? [facility] Comment: The eGFR was calculated using the CKD-EPI equation. As with all creatinine based estimates of kidney function, eGFR values calculated with the CKD-EPI equation are not accurate in patients with acute kidney failure, extremes of body mass or the acutely ill. http://[email or web address]/[email or web address] Blood specimen (specimen) 02/14/2019 10:54 PM EDT 02/14/2019 11:09 PM EDT Narrative Resulting Agency Comment Spec In Lab Tony Monique MD CHEMISTRY ORDERABLES [facility] [place] [phone] * EKG 12 Lead (02/14/2019 10:28 PM EDT) Ventricular rate 70 BPM MUSE SYSTEM Atrial Rate 70 BPM MUSE SYSTEM P-R Interval 162 ms MUSE SYSTEM QRS Duration 90 ms MUSE SYSTEM Q-T Interval 386 ms MUSE SYSTEM QTC Calculated (Bezet) 416 ms MUSE SYSTEM Calculated P Howell 48 degrees MUSE SYSTEM Calculated R Howell 7 degrees MUSE SYSTEM Calculated T Howell 33 degrees MUSE SYSTEM INTERPRETATION Sinus rhythm with Premature atrial complexes with Aberrant conduction Otherwise normal ECG When compared with ECG of 19-OCT-2007 07:46, Aberrant conduction is now Present T wave inversion no longer evident in Lateral leads Confirmed by MD Herminia, Jak ([id number]) on 02/15/2019 8:07:37 AM MUSE SYSTEM 02/14/2019 10:2 8 PM EDT 02/15/2019 8:07 AM EDT Tony Monique MD ECG ORDERABLES MUSE SYSTEM documented in this encounter Visit Diagnoses Diagnosis Anxiety Anxiety state, unspecified documented in this encounter Care Teams Sewage Screen Operator Relationship Specialty Start Date End Date Brenda Canchola MD [address] [place] [address] PCP - General 06/01/10 03/25/19 documented as of this encounter
--- OUTSIDE RECORDS SUMMARY | 2024-04-13 15:53 | XMS_ITS | Encounter Summary ---
Author Organization [facility] [place] [address] Care Team Providers Care Steam Turbine Operator Name Role Phone Brenda Canchola MD Primary Care Provider [phone] Encounter Details Date Type Department Care Team (Late st Contact Info) Description 01/22/2019 Ancillary Procedure Radiology Library at [facility] [place] [phone] Luis E Narayan MD [facility] [place] [address] Social History Tobacco Use Types Packs/Day Years [...] AM EDT Appointment Mammography/[place] [address] Rodney Padilla MD [address] [place] [address] 05/01/2024 1:45 PM EDT [place] [address] Juanpablo Hernandez MD [facility] [place] [address] 05/23/2024 2:45 PM EST Clinical Support Family Medicine at [facility] [address] [place] [address] Julia Low, [facility] 01/30/2025 1:30 PM EDT Laboratory Appointment Lab at [facility] Hematology Oncology [address] [place] [address] 01/30/2025 3:[address] [place] [address] Arturo Cordero MD [facility] [place] [address] 01/30/2025 4:15 PM EDT Office Visit [place] [address] Arturo Cordero MD [facility] [place] [address] documented as of this encounter Procedures Procedure Name Priority Date/Time Associated Diagnosis Comments FILM LIBRARY STORAGE ONLY DX CHEST STAT 01/22/2019 12:00 AM EDT documented in this encounter Results * Film Library- Storage Only DX Chest (01/22/2019 12:00 AM EDT) Narrative [facility] - 03/28/2019 10:59 AM EDT This exam is auto-finalizing. It's purpose is for storage only. Luis E Narayan MD IMG FILM LIBRARY OR DERABLES [place], [place] documented in this encounter Visit Diagnoses Not on filedocumented in this encounter Care Teams Steam Turbine Operator Relationship Specialty Start Date End Date Brenda Canchola MD [address] [place] [address] PCP - General 06/01/10 03/25/19 documented as of this encounter
--- OUTSIDE RECORDS SUMMARY | 2024-04-13 15:53 | XMS_ITS | Encounter Summary ---
Author Organization [facility] Address [place] [id number] Care Team Providers Care Environmental Engineer Scientist Name Role Phone Luis E Narayan MD Primary Care Provider Reason for Referral * Consultation (Urgent) - Closed Specialty Diagnoses / Procedures Referred By Contac t Referred To Contact Urology Diagnoses Renal mass Elpidio Pinedo IV, MD [facility] [place] [address] [facility] [place] [address] Referral ID Status Reason Start Date Expiration Date V isits Requested Visits Authorized [id number] Closed Consult, Test & Treat 03/26/2019 03/25/2020 1 1 * Consultation (Urgent) - Closed Specialty Diagnoses / Procedures Referred By Contac t Referred To Contact Neurology Diagnoses Generalized weakness Elpidio Pinedo IV, MD [facility] [place] [address] [facility] [address] [place] [address] Referral ID Status Reason Start Date Expiration Date V isits Requested Visits Authorized [id number] Closed Consult, Test & Treat 03/26/2019 03/25/2020 1 1 Reason for Visit * Reason Comments Edema Encounter Details Date Type Department Care Team (Late st Contact Info) Description 03/26/2019 8:40 PM EDT - 03/27/2019 2:36 AM EDT Emergency Emergency Department [facility] [place] [address] Avila Fransworth MD [facility] [place] [address] Generalized weakness; Other specified diabetes mellitus with diabetic neuropathy, unspecified whether supervisor intermediates insulin use; Renal mass Discharge Disposition: Home [...] 11/26/2018 04/09/2019 fluticasone propionate (FLONASE) 50 mcg/actuation Neon, Suspension 50 sprays by Each Nare route [...] 03/26/2019 10:19 PM EDT Pt transported to [facility] via tech. * Elpidio Pinedo IV [...] medical care so far. 01/23-01/27 admitted to [place], discharged on prednisone taper and then sought care at [facility] where she had CT scans done showing [...] disposition. Elpidio Pinedo IV, MD Resident 03/26/19 [id number] Associated attestation - Avila Farnsworth MD - [...] 05/01/2024 11:20 AM EDT Appointment Mammography/[place] [address] Rodney Padilla MD [address] [place] [place] [address] 05/01/2024 1:45 PM EDT Office [place] [phone] Juanpablo Hernandez MD [facility] [place] [address] 05/23/2024 2:45 PM EST Clinical Support Family Medicine at [facility] [address] [place] [phone] Julia Low [facility] 01/30/2025 1:30 PM EDT Laboratory Appointment Lab at [facility] Hematology Oncology [address] [place] [address] 01/30/2025 3:[address] [place] [address] Arturo Cordero MD [facility] [place] [address] 01/30/2025 4:15 PM EDT Office Visit Hematology [place] [phone] Arturo Cordero MD [facility] [address] [place] [address] Scheduled Referrals Name Type Priority Associated Diagnoses [...] number below. ? Electronically signed by: HIMANSHU Ayala [facility] ([phone]), at 03/27/2019 3:48 AM Narrative 03/27/2019 3:48 AM EDT EXAMINATION: MRI [...] 10:10 PM EDT) Ethanol <100 <=99 mg/L [facility] Comment: Greater than 800 mg/L (0.08%) should be considered intoxicated. 3400 to 4500 mg/L (0.34 - 0.45%) is considered severe intoxication. Greater than 5500 mg/L (0.55%) is usually fatal. Blood specimen (specimen) 03/26/2019 10:10 PM EDT 03/26/2019 10:18 PM EDT Narrative Resulting Agency Comment Spec In Lab Vaughn Boone MD CHEMISTRY ORDERABLES [facility] [place] [address] * Gold Tube HOLD (03/26/2019 9:53 PM EDT) Gold Hold Sample in lab. [facility] Blood specimen (specimen) Venous Draw / Unknown 03/26/2019 9:53 PM EDT 03/26/2019 10:04 PM EDT Elpidio Pinedo IV, MD CHEMISTRY ORDERABLE S [facility] [place] [address] * Blue Tube HOLD (03/26/2019 9:53 PM EDT) Pathologist [facility] Blue Hold Sample in lab. [facility] Blood specimen (specimen) Venous Draw / Unknown 03/26/2019 9:53 PM EDT 03/26/2019 10:04 PM EDT Elpidio Pinedo IV, MD HEMATOLOGY ORDERABL ES [facility] [place] [phone] * Differential, Automated (03/26/2019 9:53 PM EDT) [facility] Neutrophil % 57.9 % [facility] Neutrophil Absolute 5.86 1.70 - 6.10 x10(3)/[facility] Lymph % 30.9 % [facility] Lymphocytes Abs 3.1 0.9 - 3.2 x10(3)/[facility] Monocyte % 8.2 % [facility] Monocyte Abs 0.8 0.3 - 0.9 x10(3)/[facility] Eos % 2.1 % [facility] Eosinophils Abs 0.2 0.0 - 0.4 x10(3)/[facility] Basophil % 0.7 % [facility] Baso Absolute 0.1 0.0 - 0.1 x10(3)/[facility] Immature Gran % 0.20 % [facility] Comment: Immature granulocytes(IG's)percentage and absolute count will include metamyelocytes, myelocytes, and promyelocytes. Blood smears from CBCs yielding IG's will be scanned manually for concordance. If this scan disagrees with the automated IG or if promyelocytes are noted, a manual differential will be performed. Immature Gran Absolute 0.02 0.00 - 0.04 x10(3)/[facility] Blood specimen (specimen) 03/26/2019 9:53 PM EDT 03/26/2019 10:03 PM EDT Narrative Resulting Agency Comment Spec In Lab Elpidio Pinedo IV, MD HEMATOLOGY ORDERABL ES Performing Organization Address City/[facility]/ZIP Co de Phone Number [facility] [place] [address] * (ABNORMAL) Hemogram (03/26/2019 9:53 PM EDT) White Blood Cell 10.1(H) 4.0 - 9.5 x10(3)/mc L [facility] Red Blood Cell 4.65 4.00 - 5.21 x10(6)/mc L [facility] Hemoglobin 13.6 11.7 - 15.5 gm/dL [facility] Hematocrit 40.1 35.7 - 45.8 % [facility] Mean Cell Volume 86.2 82.6 - 94.4 fL [facility] Mean Cell Hemoglobin 29.2 27.1 - 32.0 pg [facility] Mean Cell Hemoglobin Concentration 33.9 31.7 - 35.0 gm/dL [facility] Platelet 458(H) 145 - 357 x10(3)/mc L [facility] RDW Standard Deviation 45.4 37.0 - 46.0 [facility]AT[facility] RDW coefficient of variation 14.4(H) 11.5 - 14.1 % [facility] Mean Platelet Volume 9.4 7.6 - 12.9 fL [facility] NRBC% auto 0.0 % [facility] NRBC Absolute 0.000 0.000 - 0.000 x10(3)/ L [facility] Blood specimen (specimen) 03/26/2019 9:53 PM EDT 03/26/2019 10:03 PM EDT Narrative Resulting Agency Comment Spec In Lab Elpidio Pinedo IV, MD HEMATOLOGY ORDERABL ES [facility] [place] [address] * (ABNORMAL) Hemoglobin A1c (03/26/2019 9:53 PM EDT) Hemoglobin A1c 8.0(H) 4.3 - 5.6 % [facility] [...] 36: Suppl. 1, S67-74 Estimated Average Glucose 183 mg/dL [facility] Comment: [...] into estimated average glucose values. ??Diabetes Care 2008:31(8):6010-0623. Blood specimen (specimen) 03/26/2019 9:53 PM EDT 03/26/2019 10:03 PM EDT Narrative Resulting Agency Comment Spec In Lab Vaughn Bonoe MD CHEMISTRY ORDERABLES Performing Organization Address City/[facility]/ZIP Co de Phone Number [facility] [place] [address] * pro-Brain Natriuretic Peptide (03/26/2019 9:53 PM EDT) NT-proBNP 108 <=125 pg/mL [facility] Blood specimen (specimen) 03/26/2019 9:53 PM EDT 03/26/2019 10:03 PM EDT Narrative Resulting Agency Comment Spec In Lab Vaughn Boone MD CHEMISTRY ORDERABLES Performing Organization Address [facility]/[employer] Co de Phone Number [facility] [place] [address] * Troponin (03/26/2019 9:53 PM EDT) Troponin-T <0.01 0.00 - 0.00 ng/mL [facility] Comment: The 99th percentile for Troponin T is less than 0.01 ng/mL, any detectable cTnT concentration using this assay should be considered elevated. According to the third universal definition of myocardial infarction the following criteria with a clinical presentation consistent with acute myocardial ischemia meets the diagnosis for a myocardial infarction (NC). Detection of a rise and/or fall of cTnT, with at least one value greater than the 99th percentile (> or = 0.01) and with at least one of the following ?? Symptoms of ischemia ?? New or presumed new significant FJ-[id number]-I wave (ST-T) changes or new left bundle [...] additional sample may be indicated. Reference: Third [place] Definition of Myocardial Infarction. Journal of the [place] [employer] 2012;60:1581-98 Blood specimen (specimen) 03/26/2019 9:53 PM EDT 03/26/2019 10:03 PM EDT Narrative Resulting Agency Comment Spec In Lab Vaughn Boone MD CHEMISTRY ORDERABLES [facility] [place] [address] * (ABNORMAL) Basic Metabolic Panel (non-fasting) (03/26/2019 9:53 PM EDT) Glucose 131 65 - 199 mg/dL [facility] Comment:Diabetes: >=200 mg/d L plus symptoms Blood Urea Nitrogen 13 8 - 18 mg/dL [facility] Creatinine 0.68(L) 0.70 - 1.20 mg/dL [facility] Sodium 142 135 - 145 mmol/L [facility] Potassium 3.7 3.5 - 5.0 mmol/L [facility] Comment: Please note: ??Patients with WBC >100,000 may have falsely elevated Potassium levels. ??For accurate Potassium quantification in these patients send serum separator tube (gold top) for subsequent determinations. ??Contact the Clinical Chemistry Laboratory if there are any questions. Chloride 103 98 - 107 mmol/L [facility] Carbon Dioxide 26 22 - 31 mmol/L [facility] Anion Gap 13 5 - 15 mmol/L [facility] Calcium 9.9 8.5 - 10.5 mg/dL [facility] Est Glomerular Filtration Rate 96 >=60 mL/min/1. 73 m?? [facility] Comment: The eGFR was calculated using the CKD-EPI equation. As with all creatinine based estimates of kidney function, eGFR values calculated with the CKD-EPI equation are not accurate in patients with acute kidney failure, extremes of body mass or the acutely ill. http://[employer]/DHMCnkf eGFR 111 >=60 mL/min/1. 73 m?? [facility] Comment: The eGFR was calculated using the CKD-EPI equation. As with all creatinine based estimates of kidney function, eGFR values calculated with the CKD-EPI equation are not accurate in patients with acute kidney failure, extremes of body mass or the acutely ill. http://[employer]/DHMCnkf Blood specimen (specimen) 03/26/2019 9:53 PM EDT 03/26/2019 10:03 PM EDT Narrative Resulting Agency Comment Spec In Lab Vaughn Boone MD CHEMISTRY ORDERABLES [facility] [place] [address] * (ABNORMAL) Rapid Drug Screen w/o Confirmation, Urine (03/26/2019 9:49 PM EDT) Pathologist [facility] Barbiturates Screen, Urine None Detected None Detected [facility] Comment: The barbiturate screen detects [...] Benzodiazepines Screen, Urine None Detected None Detected [facility] Comment: The benzodiazepines screen detects [...] Cocaine Screen, Urine None Detected None Detected [facility] Comment: The cocaine metabolites screen detects benzoylecgonine (Cocaine Metabolite) at concentrations >150 ng/mL. A ? Presumptive Positive? result indicates that the screening result was positive but has not yet been confirmed by a highly-specific method. As with any screen, occasional false positive results from cross-reacting substances may occur. Not for Medico-Legal Purposes. Methadone Metabolites Screen, Urine None Detected None Detected [facility] Comment: The methadone metabolite screen detects EDDP (major methadone metabolite) at concentrations >100 ng/mL. A ? Presumptive Positive? result indicates that the screening result was positive but has not yet been confirmed by a highly-specific method. As with any screen, occasional false positive results from cross-reacting substances may occur. Not for Medico-Legal Purposes. Opiate Screen, Urine None Detected None Detected [facility] Comment: The opiates screen detects [...] Cannabinoid Screen, Urine Presumptive Pos(A) None Detected [facility] Comment: The marijuana metabolites screen detects the THC metabolite (58-yyo-1-carboxy-delta 9-THC) at concentrations >20 ng/mL. A ? Presumptive Positive? result indicates that the screening result was positive but has not yet been confirmed by a highly-specific method. As with any screen, occasional false positive results from cross-reacting substances may occur. Not for Medico-Legal Purposes. Oxycodone Screen, Urine None Detected None Detected [facility] Comment: The oxycodone screen detects oxycodone and oxymorphone at concentrations >100 ng/mL. A ? Presumptive Positive? result indicates that the screening result was positive but has not yet been confirmed by a highly-specific method. As with any screen, occasional false positive results from cross-reacting substances may occur. Not for Medico-Legal Purposes. Buprenorphine Screen, Urine None Detected None Detected [facility] Comment: The buprenorphine screen detects buprenorphine at concentrations >5 ng/mL. A ? Presumptive Positive? result indicates that the screening result was positive but has not yet been confirmed by a highly-specific method. As with any screen, occasional false positive results from cross-reacting substances may occur. Not for Medico-Legal Purposes. Fentanyl Screen, Urine None Detected None Detected [facility] Comment: The fentanyl screen detects fentanyl at concentrations >2 ng/mL. A ? Presumptive Positive? result indicates that the screening result was positive but has not yet been confirmed by a highly-specific method. As with any screen, occasional false positive results from cross-reacting substances may occur. Not for Medico-Legal Purposes. Tricyclics Screen, Urine None Detected None Detected [facility] Comment: The tricyclics screen detects [...] Ethanol Screen, Urine None Detected None Detected [facility] Comment:This urine ethanol a ssay detects ethanol at concentrations >/= 100 mg/L. Amphetamines Screen, Urine None Detected None Detected [facility] Comment: The amphetamine screen detects d-amphetamine and d-methamphetamine at concentrations >300 ng/mL. A ? Presumptive Positive? result indicates that the screening result was positive but has not yet been confirmed by a highly-specific method. As with any screen, occasional false positive results from cross-reacting substances may occur. Not for Medico-Legal Purposes. Adulterants Screen, Urine None Detected None Detected [facility] Comment: No adulteration or dilution of this urine sample was detected. All urine samples submitted for urine drugs of abuse analysis are tested for creatinine concentration, pH, and for the presence of oxidants, nitrites, and chromate. Urine specimen (specimen) 03/26/2019 9:49 PM EDT 03/26/2019 10:12 PM EDT Narrative Resulting Agency Comment Spec In Lab Elpidio Pinedo IV, MD CHEMISTRY ORDERABLE S [facility] [place] [address] * Rapid Drug Screen, Urine (RODRIGUEZ Request) (03/26/2019 9:49 PM EDT) RODRIGUEZ Conf Requested No [facility] RODRIGUEZ Requested See Comment [facility] Comment:Refer to Rapid Drug Screen w/o Confirmation, Urine for results. Urine specimen (specimen) 03/26/2019 9:49 PM EDT 03/26/2019 10:12 PM EDT Narrative Resulting Agency Comment Spec In Lab Vaughn Boone MD URINE ORDERABLES [facility] [place] [address] * Urinalysis with reflex Culture (03/26/2019 9:49 PM EDT) Glucose, Urine Dipstick Negative Negative mg/dL [facility] Protein, Urine Dipstick Negative Negative mg/dL [facility] Bilirubin, Urine Dipstick Negative Negative mg/dL [facility] Comment: Clinical correlation required for positive Urine Bilirubin results as false positive may occur with some drugs and drug related products. If a false positive is suspected a serum total bilirubin should be considered if clinically indicated. Urobilinogen, Urine Dipstick Normal Normal mg/dL [facility] pH, Urn (dipstick) 6.0 5.0 - 8.0 [facility] Blood, Urine Dipstick Negative Negative mg/dL [facility] Ketone, Urine Dipstick Negative Negative mg/dL [facility] Nitrite, Urine Dipstick Negative Negative [facility] Leukocytes, Urine Dipstick Negative Negative [facility] Appearance, Urine Dipstick Clear Clear [facility] Specific [place] Urine Automated 1.013 1.002 - 1.030 [facility] Color, Urine Dipstick Yellow Yellow [facility] Reflex to Culture No [facility] Urine specimen obtained by clean catch procedure (specimen) 03/26/2019 9:49 PM EDT 03/26/2019 10:12 PM EDT Narrative Resulting Agency Comment Spec In Lab Vaughn Boone MD URINE ORDERABLES [facility] [place] [address] documented in this encounter Visit Diagnoses Diagnosis Generalized weakness Other malaise and fatigue Other specified diabetes mellitus with diabetic neuropathy, unspecified whether supervisor intermediates insulin use Renal mass Unspecified disorder of [...] [place]) documented in this encounter Care Teams Environmental Engineer Scientist Relationship Specialty Start Date End Date Luis E Narayan MD [facility] [place] [address] PCP - General Family Medicine 03/26/19 01/19/22 documented as of this encounter
--- OUTSIDE RECORDS SUMMARY | 2024-04-13 15:53 | XMS_ITS | Encounter Summary ---
Author Organization [facility] [place] [address] Care Team Providers Care Supervisor Machine Workers Name Role Phone Brenda Canchola MD Primary Care Provider [phone] Encounter Details Date Type Department Care Team (Late st Contact Info) Description 12/14/2012 Ancillary Procedure Radiology Library at [facility] [place] [phone] Luis E Narayan MD [facility] [place] [address] Social History Tobacco Use Types Packs/Day Years [...] 05/01/2024 11:20 AM EDT Appointment Mammography/[place] [address] Rodney Padilla MD [address] [place] [address] 05/01/2024 1:45 PM EDT Office [place] [address] Juanpablo Hernandez MD [facility] [place] [address] 05/23/2024 2:45 PM EST Clinical Support Family Medicine at [facility] [address] [place] [address] Julia Low, [facility] 01/30/2025 1:30 PM EDT Laboratory Appointment Lab at [facility] Hematology Oncology [address] [place] [address] 01/30/2025 3:[address] [place] [phone] Arturo Cordero MD [facility] DR HEMATOLOGY [place] [address] 01/30/2025 4:15 PM EDT Office Visit Hematology [place] [address] Arturo Cordero MD [facility] DR HEMATOLOGY [place] [address] documented as of this encounter Procedures Procedure Name Priority Date/Time Associated Diagnosis Comments FILM LIBRARY STORAGE ONLY MAMMO Routine 12/14/2012 12:00 AM EDT documented in this encounter Results * Film Library- Storage Only Mammo (12/14/2012 12:00 AM EDT) Narrative [facility] - 05/24/2019 9:36 PM EST This exam is auto-finalizing. It's purpose is for storage only. Luis E Narayan MD IMG FILM LIBRARY OR DERABLES [place], [place] documented in this encounter Visit Diagnoses Not on filedocumented in this encounter Care Teams Supervisor Machine Workers Relationship Specialty Start Date End Date Brenda Canchola MD [address] [place] [address] PCP - General 06/01/10 03/25/19 documented as of this encounter
--- OUTSIDE RECORDS SUMMARY | 2024-04-13 15:53 | XMS_ITS | Encounter Summary ---
Author Organization [facility] [place] [address] Care Team Providers Care Technical Services Librarian Name Role Phone Unavailable Primary Care Provider Unavailabl e Encounter Details Date Type Department Care Team (Late st Contact Info) Description 03/09/2009 Ancillary Procedure Radiology Library at [facility] [place] [phone] Luis E Narayan MD [facility] [address] [place] [address] Social History Tobacco Use Types Packs/Day Years Used Date Smoking Tobacco: Never Assessed Sex and Gender Information Value Date Recorded Sex Assigned at Not on file Gender Identity Not on file Sexual Orientation Not on file documented as of this encounter Plan of Treatment Upcoming Encounters Date Type Department Care Team (Late st Contact Info) Description 05/01/2024 11:20 AM EDT Appointment Mammography/[place] [address]1000 Rodney Padilla MD [address] [place] [address] 05/01/2024 1:45 PM EDT Office [place] [phone] Juanpablo Hernandez MD [facility] [place] [address] 05/23/2024 2:45 PM EST Clinical Support Family Medicine at [facility] [address] [place] [address] Julia Low, [facility] 01/30/2025 1:30 PM EDT Laboratory Appointment Lab at [facility] [place]ematology Oncology [address] [place] [address] 01/30/2025 3:[address] [place] [address]1000 Arturo Cordero MD [facility] [address] [place] [address] 01/30/2025 4:15 PM EDT Office Visit Hematology [place] [address]1000 Arturo Cordero MD [facility] DR [place] [address] documented as of this encounter Procedures Procedure Name Priority Date/Time Associated Diagnosis Comments FILM LIBRARY STORAGE ONLY MAMMO Routine 03/09/2009 12:00 AM EDT documented in this encounter Results * Film Library- Storage Only Mammo (03/09/2009 12:00 AM EDT) Narrative [facility] - 05/24/2019 9:41 PM EST This exam is auto-finalizing. It's purpose is for storage only. Luis E Narayan MD IMG FILM LIBRARY OR DERABLES [place], [place] documented in this encounter Visit Diagnoses Not on filedocumented in this encounter
--- OUTSIDE RECORDS SUMMARY | 2024-04-13 15:53 | XMS_ITS | Encounter Summary ---
Author Organization [facility] [place] [address] Care Team Providers Care Welder/Fabricator Name Role Phone Brenda Canchola MD Primary Care Provider [phone] Encounter Details Date Type Department Care Team (Late st Contact Info) Description 03/09/2016 Ancillary Procedure Radiology Library at [facility] [place] [phone] Luis E Narayan MD [facility] [place] [address] Social History Tobacco Use Types Packs/Day Years [...] 05/01/2024 11:20 AM EDT Appointment Mammography/[place] [address] Rodney Padilla MD [address] [place] [address] 05/01/2024 1:45 PM EDT Office [place] [address] Juanpablo Hernandez MD [facility] [place] [address] 05/23/2024 2:45 PM EST Clinical Support Family Medicine at [facility] [address] [place] [address] Julia Low, [facility] 01/30/2025 1:30 PM EDT Laboratory Appointment Lab at [facility] [place] Oncology [address] [place] [address] 01/30/2025 3:[address] [place] [phone] Arturo Cordero MD [facility] DR HEMATOLOGY [place] [address] 01/30/2025 4:15 PM EDT Office Visit [place] [address] Arturo Cordero MD [facility] DR HEMATOLOGY [place] [address] documented as of this encounter Procedures Procedure Name Priority Date/Time Associated Diagnosis Comments FILM LIBRARY STORAGE ONLY MAMMO Routine 03/09/2016 12:00 AM EDT documented in this encounter Results * Film Library- Storage Only Mammo (03/09/2016 12:00 AM EDT) Narrative [facility] - 05/24/2019 9:39 PM EST This exam is auto-finalizing. It's purpose is for storage only. Luis E Narayan MD IMG FILM LIBRARY OR DERABLES [place], [place] documented in this encounter Visit Diagnoses Not on filedocumented in this encounter Care Teams Welder/Fabricator Relationship Specialty Start Date End Date Brenda Canchola MD [address] [place] [address] PCP - General 06/01/10 03/25/19 documented as of this encounter
--- OUTSIDE RECORDS SUMMARY | 2024-04-13 15:53 | XMS_ITS | Encounter Summary ---
[place] [address] Care Team Providers Care Rejected Items Clerk Name Role Phone Brenda Canchola MD Primary Care Provider [phone] Encounter Details Date Type Department Care Team (Late st Contact Info) Description 07/14/2010 2:30 PM EST [place] [phone] Chuy Barbosa MD [facility] [place] [address] Discharge Disposition: Home Social History Tobacco Use [...] 11:20 AM EDT Appointment Mammography/[place] [phone] Rodney Padilla MD [address] [facility] [place], [place] [phone] 05/01/2024 1:45 PM EDT Office [place] [address] Juanpablo Hernandez MD [facility] [place] [address] 05/23/2024 2:45 PM EST Clinical Support Family Medicine at [facility] [address] [place] [phone] Julia Low, [facility] 01/30/2025 1:30 PM EDT Laboratory Appointment Lab at [facility] Hematology Oncology [address] [place] [address] 01/30/2025 3:[address] [place] [phone] Arturo Cordero MD [facility] DR HEMATOLOGY [place] [address] 01/30/2025 4:15 PM EDT Office Visit Hematology [place] [address] Arturo Cordero MD [facility] H[place]ATOLOGY [place] [address] documented as of this encounter Visit Diagnoses Not on filedocumented in this encounter Care Teams Rejected Items Clerk Relationship Specialty Start Date End Date Brenda Canchola MD [address] [place] [address] PCP - General 06/01/10 03/25/19 documented as of this encounter
--- OUTSIDE RECORDS SUMMARY | 2024-04-13 15:53 | XMS_ITS | Encounter Summary ---
Author Organization [facility] [place] [address] Care Team Providers Care Director Apparel Name Role Phone Luis E Narayan MD Primary Care Provider [phone] Reason for Referral * Consultation (Routine) - Specialty Diagnoses / Procedures Referred By Gonzalez kumari Referred To Contact Sleep Center Diagnoses TITO on CPAP Procedures PRG POLYSOM 6+ YRS SLEEP W 4+ ADDL ABHILASH Bonny Justin MD [address] [place] [address] [facility] Sleep Medicine [address] [place] [address] Referral ID Status Reason Start Date Expiration Date Visits Requested Visits Authorized [id number] Specialty Service Requested 04/09/2019 04/08/2020 1 1 Reason for Visit * Reason Comments Cognitive Decline NEW PATIENT Encounter Details Date Type Department Care Team (Late st Contact Info) Description 04/09/2019 3:00 PM EDT Office Visit Family Medicine at [facility] [address] [place] [address] Bonny Emanuel MD [address] [place] [address] Immunization due (Primary Dx); Altered mental status, unspecified altered mental status type; COPD, moderate; 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 She does accurately report that she had had days of persistent insomnia, eventually admitted for [facility] with disorientation, delirium, inappropriate speech. 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 50+ pack/ yr hx No alcohol One daughter who is a positive support Medications 04/09/19 9870 Medication Sig Taking? melatonin 5 mg Tablet [...] daily. Yes fluticasone propionate (FLONASE) 50 mcg/actuation [place], Suspension 50 sprays by Each Nare route [...] Symbicort PEFR 350 today 3. 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 Immunization due Interested/ agreeble to all today - FluLaval Quadrivalent vaccine, Preservative Free 3YRS+ - PNEUMOCOCCAL CONJUGATE VACCINE 13-VALENT - Tdap vaccine greater than or equal to 7yo IM 5. Other polyneuropathy Likely associated with T2DM, recurrent need for steroids - TSH Fortescue - Vitamin B12 - Methylmalonic acid, serum [...] AM EDT Appointment Mammography/[place] [phone] Rodney Padilla MD [address] [place] [address] 05/01/2024 1:45 PM EDT Office [place] [address] Juanpablo Hernandez MD [facility] [place] [address] 05/23/2024 2:45 PM EST Clinical Support Family Medicine at [facility] [address] [place] [phone] Julia Low [facility] 01/30/2025 1:30 PM EDT Laboratory Appointment Lab at 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 documented in this encounter Results * TSH Fortescue (04/09/2019 5:02 PM EDT) Thyroid Stimulating Hormone 3.57 0.27 - 4.20 mcIU/mL [facility] Blood specimen (specimen) 04/09/2019 5:02 PM EDT 04/09/2019 6:50 PM EDT Narrative Resulting Agency Comment Spec In Lab Bonny Emanuel MD CHEMISTRY ORDERABLES [facility] [place] [place] [address] * Comprehensive metabolic panel (non-fasting) (04/09/2019 5:02 PM EDT) Glucose 99 65 - 199 mg/dL [facility] Comment:Diabetes: >=200 mg/d L plus symptoms Blood Urea Nitrogen 13 8 - 18 mg/dL [facility] Creatinine 0.81 0.70 - 1.20 mg/dL [facility] Sodium 143 135 - 145 mmol/L [facility] Potassium 4.1 3.5 - 5.0 mmol/L [facility] Comment: Please note: ??Patients with WBC >100,000 may have falsely elevated Potassium levels. ??For accurate Potassium quantification in these patients send serum separator tube (gold top) for subsequent determinations. ??Contact the Clinical Chemistry Laboratory if there are any questions. Chloride 101 98 - 107 mmol/L [facility] Carbon Dioxide 29 22 - 31 mmol/L [facility] Anion Gap 13 5 - 15 mmol/L [facility] Calcium 9.7 8.5 - 10.5 mg/dL [facility] Protein, Total 7.1 6.1 - 8.0 gm/dL [facility] Albumin 4.3 3.2 - 5.2 gm/dL [facility] Aspartate Aminotransferase 28 0 - 30 unit/L [facility] Alanine Aminotransferase 29 0 - 30 unit/L [facility] Alkaline Phosphatase 80 35 - 105 unit/L [facility] Bilirubin, Total 0.3 0.2 - 1.3 mg/dL [facility] Est Glomerular Filtration Rate 79 >=60 mL/min/1. 73 m?? [facility] Comment: The eGFR was calculated using the CKD-EPI equation. As with all creatinine based estimates of kidney function, eGFR values calculated with the CKD-EPI equation are not accurate in patients with acute kidney failure, extremes of body mass or the acutely ill. [email or web address] eGFR 92 >=60 mL/min/1. 73 m?? [facility] Comment: The eGFR was calculated using the CKD-EPI equation. As with all creatinine based estimates of kidney function, eGFR values calculated with the CKD-EPI equation are not accurate in patients with acute kidney failure, extremes of body mass or the acutely ill. [email or web address] Blood specimen (specimen) 04/09/2019 5:02 PM EDT 04/09/2019 6:50 PM EDT Narrative Resulting Agency Comment Spec In Lab Bonny Emanuel MD CHEMISTRY ORDERABLES [facility] [place] [address] * Vitamin B12 (04/09/2019 5:02 PM EDT) Vitamin B12 820 232 - 1,245 pg/mL [facility] Blood specimen (specimen) 04/09/2019 5:02 PM EDT 04/09/2019 6:50 PM EDT Narrative Resulting Agency Comment Spec In Lab Bonny Emanuel MD CHEMISTRY ORDERABLES Performing Organization Address [facility] Co de Phone Number [facility] [place] [address] * Methylmalonic acid, serum (04/09/2019 5:02 PM EDT) Methylmalonic Acid (MAY) 0.20 <=0.40 nmol/mL [facility] Comment: ADDITIONAL INFORMATION This test was developed and its performance characteristics determined by [facility] in a manner consistent with CLIA requirements. This test has not been cleared or approved by the U.S. Food and Drug Administration. Test Performed by: [facility] - [address] [address] Mobile Practice Lead: Jose G Jefferson M.D. Ph.D.; CLIA# [id number] Blood specimen (specimen) 04/09/2019 5:02 PM EDT 04/10/2019 8:35 AM EDT Narrative Resulting Agency Comment Spec In Lab Bonny Emanuel MD LAB SEND OUT ORDERAB LES Performing Organization Address [facility] Co de Phone Number [facility] [place] [address] documented in this encounter Visit Diagnoses Diagnosis Immunization due- Primary Need for prophylactic vaccination and inoculation against unspecified single disease Altered mental status, unspecified altered mental status type COPD, moderate Chronic airway obstruction, not elsewhere classified 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
--- OUTSIDE RECORDS SUMMARY | 2024-04-13 15:53 | XMS_ITS | Encounter Summary ---
Author Organization [facility] [place] [address] Care Team Providers Care Sales Support Consultant Name Role Phone Luis E Narayan MD Primary Care Provider Reason for Referral * Diagnostic Test (Routine) - Closed Specialty Diagnoses / Procedures Referred By Contac t Referred To Contact Radiology Diagnoses Adrenal mass, left Renal mass, left Procedures MRI Abdomen wwo Contrast (Generic) Avila Medina MD [facility] [place] [address] [place] [address] Referral ID Status Reason Start Date Expiration Date V isits Requested Visits Authorized [id number] Closed Specialty Service Requested 04/24/2019 06/22/2019 1 1 Reason for Visit * Consultation (Urgent) - Closed Specialty Diagnoses / Procedures Referred By Contac t Referred To Contact Urology Diagnoses Renal mass Elpidio Pinedo IV, MD [facility] [place] [address] [facility] [place] [address] Referral ID Status Reason Start Date Expiration Date V isits Requested Visits Authorized [id number] Closed Consult, Test & Treat 03/26/2019 03/25/2020 1 1 Encounter Details Date Type Department Care Team (Late st Contact Info) Description 04/11/2019 9:50 AM EDT Office Visit Hematology [place] [address] Avila Medina MD [facility] [place] [address] Adrenal mass, left; Renal mass, left Social [...] being w/u for a neurological condition ASCVD ME with stents 11 years ago Type II [...] #1: 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 but incomplete evaluation #2: Positive [...] 05/01/2024 11:20 AM EDT Appointment Mammography/[place] [address] Rodney Padilla MD [address] [place] [address] 05/01/2024 1:45 PM EDT Office [place] [address]1000 Juanpablo Hernandez MD [facility] OPHTHALMOLOGY [place], [place] [address] 05/23/2024 2:45 PM EST Clinical Support Family Medicine at [facility] [address] [place] [address] Julia Low, [facility] 01/30/2025 1:30 PM EDT Laboratory Appointment Lab at [facility] Hematology Oncology [address] [place] [address] 01/30/2025 3:[address] [place] [address] Arturo Cordero MD [facility] [place] [address] 01/30/2025 4:15 PM EDT Office Visit Hematology [place] [address] Arturo Cordero MD [facility] [place] [address] documented as of this encounter Results * [...] the number below. ? Electronically signed by: Juanpablo [facility] ([phone]), at 05/03/2019 9:33 AM Narrative 05/03/2019 9:33 [...] number below. Electronically signed by: Juanpablo [facility]([phone]), at 05/03/2019 9:33 AM Avila Medina MD IMG MRI ORDERABLES documented in this encounter Visit Diagnoses Diagnosis Adrenal mass, left Unspecified disorder of adrenal glands Renal mass, left Unspecified disorder of kidney and ureter Adrenal mass, left Unspecified disorder of adrenal glands Renal mass, left Unspecified disorder of kidney and ureter documented in this encounter Care Teams Sales Support Consultant Relationship Specialty Start Date End Date Luis E Narayan MD [facility] [address] [address] PCP - General Family Medicine 03/26/19 01/19/22 documented as of this encounter
--- OUTSIDE RECORDS SUMMARY | 2024-04-13 15:53 | XMS_ITS | Encounter Summary ---
Author Organization [facility] Address [facility] [place] [address] Care Team Providers Care Griddle Cook Name Role Phone Brenda Canchola MD Primary Care Provider [phone] Reason for Visit * Reason Comments Cognitive Decline Neuropsychological T esting Encounter Details Date Type Department Care Team (Late st Contact Info) Description 10/14/2010 9:00 AM EDT Office Visit Psychiatry and Behavioral Health at [facility] [place] [address] Kelsey Castrejon, PhD NEUROPSYCHOLOGY DEPT. 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 She was referred to assess [...] on 10/18/2007, Ms. Gramajo was transferred to [facility] with non-ST elevated myocardial infarction, [...] services. 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 She was alert and oriented [...] Comprehension and Cookie Theft Picture (from BDAE) Jay Naming Test (BNT) Wide Range Achievement Test [...] System (D-KEFS): Raw Scores Range (Scaled Scores) [place] Making: Visual Scanning 15?? 0 err (13) [...] (CVLT-II): Raw Scores Range Acquisition 53/80 Average (3-87-33-12-11) Short-Delay Free Recall 8/16 Low Average Short-Delay [...] Comprehension (from BDAE): 11/12 Within Normal Limits Jay Naming Test (BNT): 50/60 Low Average Wide [...] her to utilize some type of daily systems planner/organizer. In addition, feedback about the results [...] Fellow Board Certified in Clinical Neuropsychology Neuropsychology Pin ChaserSterile Techniciancrude unit operator Director, Neuropsychology Program This report was prepared by Deuce Toledo Psy.D., Postdoctoral Fellow in Neuropsychology, under the supervision of Kelsey Castrejon, Ph.D., ABPP. documented in this encounter Plan of Treatment Upcoming Encounters Date Type Department Care Team (Late st Contact Info) Description 05/01/2024 11:20 AM EDT Appointment Mammography/[place] [address] Rodney Padilla MD [address] [facility] [place] [address] 05/01/2024 1:45 PM EDT Office [place] [address]1000 Juanpablo Hernandez MD [facility] DR OPHTHALMOLOGY [place], [place] [phone] 05/23/2024 2:45 PM EST Clinical Support Family Medicine at [facility] [address] [place] [address] Julia Low [facility] 01/30/2025 1:30 PM EDT Laboratory Appointment Lab at [facility] Hematology Oncology [address] [place] [id number] 01/30/2025 3:[address] [place] [address] Arturo Cordero MD [facility] DR HEMATOLOGY [place] [address] 01/30/2025 4:15 PM EDT Office Visit Hematology [place] [address] Arturo Cordero MD [facility] DR HEMATOLOGY [place] [address] documented as of this encounter Visit Diagnoses Diagnosis Cognitive deficits- Primary Unspecified persistent mental disorders due to conditions classified elsewhere documented in this encounter Care Teams Griddle Cook Relationship Specialty Start Date End Date Brenda Canchola MD [address] [place] [address] PCP - General 06/01/10 03/25/19 documented as of this encounter
--- OUTSIDE RECORDS SUMMARY | 2024-04-13 15:53 | XMS_ITS | Encounter Summary ---
Author Organization [facility] [place] [address] Care Team Providers Care Systems Lead Name Role Phone Brenda Canchola MD Primary Care Provider Encounter Details Date Type Department Care Team (Late st Contact Info) Description 03/18/2019 Ancillary Procedure Radiology Library at [facility] [place] [phone] Luis E Narayan MD [facility] [place] [address] Social History Tobacco Use Types Packs/Day Years [...] 05/01/2024 11:20 AM EDT Appointment Mammography/[place] [address] Rodney Padilla MD [address] [place] [address] 05/01/2024 1:45 PM EDT Office [place] [address] Juanpablo Hernandez MD [facility] [place] [place] [address] 05/23/2024 2:45 PM EST Clinical Support Family Medicine at [facility] [address] [place] [address] Julia Low, [facility] 01/30/2025 1:30 PM EDT Laboratory Appointment Lab at [facility] Hematology Oncology [address] [place] [address] 01/30/2025 3:[address] [place] [phone] Arturo Cordero MD [facility] [place] [address] 01/30/2025 4:15 PM EDT Office Visit Hematology [place] [address] Arturo Cordero MD [facility] [place] [address] documented as of this encounter Procedures Procedure Name Priority Date/Time Associated Diagnosis Comments FILM LIBRARY STORAGE ONLY ULTRASOUND STUDY STAT 03/18/2019 12:00 AM EDT documented in this encounter Results * Film Library- Storage Only Ultrasound Study (03/18/2019 12:00 AM EDT) Narrative [facility] - 03/28/2019 11:02 AM EDT This exam is auto-finalizing. It's purpose is for storage only. Luis E Narayan MD IMG FILM LIBRARY OR DERABLES [place], [place] documented in this encounter Visit Diagnoses Not on filedocumented in this encounter Care Teams Systems Lead Relationship Specialty Start Date End Date Brenda Canchola MD [address] [place] [address] PCP - General 06/01/10 03/25/19 documented as of this encounter
--- OUTSIDE RECORDS SUMMARY | 2024-04-13 15:53 | XMS_ITS | Encounter Summary ---
Author Organization [facility] [place] [address] Care Team Providers Care Director Business Management Name Role Phone Brenda Canchola MD Primary Care Provider [phone] Encounter Details Date Type Department Care Team (Late st Contact Info) Description 01/21/2019 Ancillary Procedure Radiology Library at [facility] [place] [phone] Luis E Narayan MD [facility] [place] [place] [address] Social History Tobacco Use Types Packs/Day Years [...] 05/01/2024 11:20 AM EDT Appointment Mammography/[place] [address] Rodney Padilla MD [address] [place] [address] 05/01/2024 1:45 PM EDT Office [place] [address] Juanpablo Hernandez MD [facility] [place] [place] [address] 05/23/2024 2:45 PM EST Clinical Support Family Medicine at [facility] [address] [place] [address] Julia Low, [facility] 01/30/2025 1:30 PM EDT Laboratory Appointment Lab at [facility] Hematology Oncology [address] [place] [address] 01/30/2025 3:[address] [place] [phone] Arturo Cordero MD [facility] [place] [address] 01/30/2025 4:15 PM EDT Office Visit H[place]ology [place] [address] Arturo Cordero MD [facility] [address] [place] [address] documented as of this encounter Procedures Procedure Name Priority Date/Time Associated Diagnosis Comments FILM LIBRARY STORAGE ONLY DX CHEST Routine 01/21/2019 12:00 AM EDT documented in this encounter Results * Film Library- Storage Only DX Chest (01/21/2019 12:00 AM EDT) Narrative [facility] - 05/24/2019 9:38 PM EST This exam is auto-finalizing. It's purpose is for storage only. Luis E Narayan MD IMG FILM LIBRARY OR DERABLES [place], [place] documented in this encounter Visit Diagnoses Not on filedocumented in this encounter Care Teams Director Business Management Relationship Specialty Start Date End Date Brenda Canchola MD [address] [place] [address] PCP - General 06/01/10 03/25/19 documented as of this encounter
--- OUTSIDE RECORDS SUMMARY | 2024-04-13 15:53 | XMS_ITS | Encounter Summary ---
Author Organization [facility] [place] [address] Care Team Providers Care Floor Inspector Name Role Phone Unavailable Primary Care Provider Unavailabl e Encounter Details Date Type Department Care Team (Late st Contact Info) Description 03/11/2009 Ancillary Procedure Radiology Library at [facility] [place] [phone] [facility] [place] [address] Social History Tobacco Use Types Packs/Day Years Used Date Smoking Tobacco: Never Assessed Sex and Gender Information Value Date Recorded Sex Assigned at Not on file Gender Identity Not on file Sexual Orientation Not on file documented as of this encounter Plan of Treatment Upcoming Encounters Date Type Department Care Team (Late st Contact Info) Description 05/01/2024 11:20 AM EDT Appointment Mammography/[place] [address] Rodney Padilla MD [address] [place] [address] 05/01/2024 1:45 PM EDT Office [place] [address] [facility] [place] [address] 05/23/2024 2:45 PM EST Clinical Support Family Medicine at [facility] [address] [place] [address] Julia Low, [facility] 01/30/2025 1:30 PM EDT Laboratory Appointment Lab at [facility] Hematology Oncology [address] [place] [address] 01/30/2025 3:[address] [place] [address] [facility] [address] [place] [address] 01/30/2025 4:15 PM EDT Office Visit Hematology [place] [address] [facility] [place] [address] documented as of this encounter Procedures Procedure Name Priority Date/Time Associated Diagnosis Comments FILM LIBRARY STORAGE ONLY MAMMO Routine 03/11/2009 12:00 AM EDT documented in this encounter Results * Film Library- Storage Only Mammo (03/11/2009 12:00 AM EDT) Narrative [facility] - 05/24/2019 9:42 PM EST This exam is auto-finalizing. It's purpose is for storage only. Luis E Narayan MD IMG FILM LIBRARY OR DERABLES [place], [place] documented in this encounter Visit Diagnoses Not on filedocumented in this encounter
--- OUTSIDE RECORDS SUMMARY | 2024-04-13 15:53 | XMS_ITS | Encounter Summary ---
Author Organization [facility] [place] [address] Care Team Providers Care Lighting Director Name Role Phone Brenda Canchola MD Primary Care Provider [phone] Encounter Details Date Type Department Care Team (Late st Contact Info) Description 09/15/2011 Ancillary Procedure Radiology Library at [facility] [place] [place] [phone] Luis E Narayan MD [facility] [place] [place] [address] Social History Tobacco Use Types Packs/Day Years [...] EDT Appointment Mammography/[place] [address] Rodney Padilla MD [address] [place] [address] 05/01/2024 1:45 PM EDT Office [place] [address] Juanpablo Hernandez MD [facility] [place] [place] [address] 05/23/2024 2:45 PM EST Clinical Support Family Medicine at [facility] [address] [place] [address] Julia Low, [facility] 01/30/2025 1:30 PM EDT Laboratory Appointment Lab at [facility] Hematology Oncology [address] [place] [address] 01/30/2025 3:[address] [place] [address]1000 Arturo Cordero MD [facility] [place] [address] 01/30/2025 4:15 PM EDT Office Visit Hematology [place] [address] Arturo Cordero MD [facility] [place] [address] documented as of this encounter Procedures Procedure Name Priority Date/Time Associated Diagnosis Comments FILM LIBRARY STORAGE ONLY MAMMO Routine 09/15/2011 12:00 AM EST documented in this encounter Results * Film Library- Storage Only Mammo (09/15/2011 12:00 AM EST) Narrative [facility] - 05/24/2019 9:40 PM EST This exam is auto-finalizing. It's purpose is for storage only. Luis E Narayan MD IMG FILM LIBRARY OR DERABLES [place], [place] documented in this encounter Visit Diagnoses Not on filedocumented in this encounter Care Teams Lighting Director Relationship Specialty Start Date End Date Brenda Canchola MD [address] [place] [address] PCP - General 06/01/10 03/25/19 documented as of this encounter
[2024-04-13 15:54] LABS: Bilirubin Negative (Negative); Blood Negative (Negative); Clarity Clear (Clear); Glucose Negative (Negative); Ketones Negative (Negative); Leukocyte Esterase Negative (Negative); Nitrite Negative (Negative); Specific Gravity 1.015 (1.005-1.025); Urobilinogen 0.2 mg/dL (Up to 0.2); pH 5.5 (5-8)
== END 2024-04-13 15:38 | disposition home or self-care (01) ==
LOC: LBN 15:37
PROVIDERS: PCP Family Medicine; Visit Provider Physician Assistant
DX: N39.0 Urinary tract infection, site not specified (principal)
CPT/HCPCS: 81003

== ENCOUNTER 2024-04-15 15:29 | Emergency (ER) | payer MEDICARE, MEDICAID, SELFPAY ==
[2024-04-15] VITALS (32 sets, daily range): BP systolic 142–179; BP diastolic 65–108; PULSE 45–86; RESP 10–30; TEMP 36.6–37.2; O2SAT 95–99
--- OUTSIDE RECORDS SUMMARY | 2024-04-15 15:45 | XMS_ITS | Encounter Summary ---
Author Organization [facility] Address [address] [place] [address] Care Team Providers Care Barrel Scraper Name Role Phone Brenda Canchola MD Primary Care Provider [phone] Encounter Details Date Type Department Care Team (Late st Contact Info) Description 11/29/2021 Lab Requisition [facility] Pathology & Laboratory Medicine - [facility] [address] [place], [place] [phone] Outr Resulting Lab, Provider Social History Tobacco [...] IGA <1.2 <4.0 U/mL 12/01/2021 12:26 EDT [facility] Comment: A negative result may be due to IgA deficiency and does not rule out celiac disease. ? Negative: ??<4.0 U/mL ? Weak Positive: ??4.0 - 10.0 U/mL ? Positive: ??>10.0 U/mL Results were obtained with the [employer] QUANTA Lite R h-tTG IgA ELOY assay on the P2i DSX. IgA 227 85 - 499 mg/dL 12/01/2021 12:26 EDT [facility] Celiac Disease Interpretation Negative Serology. Celiac disease unlikely. Approximately 10% of patients with celiac disease are seronegative. Patients who are already adhering to a gluten-free diet may also be seronegative. If celiac disease is highly clinically suspected, referral to gastroenterology for additional evaluation is recommended. 12/01/2021 12:26 EDT [facility] Blood VENOUS BLOOD / Unknown 11/29/2021 12:35 EDT 11/29/2021 21:43 EDT Provider Outr Resulting Lab IMMUNOLOGY A ND SEROLOGY ORDERABLES Performing Organization Address City/State/[facility] Co de Phone Number [facility] [address] [place] [address] documented in this encounter Visit Diagnoses Not on filedocumented in this encounter Care Teams Barrel Scraper Relationship Specialty Start Date End Date Brenda Canchola MD [address] [place] [address] [place] [address] PCP - General 08/03/10 documented as of this encounter
--- OUTSIDE RECORDS SUMMARY | 2024-04-15 15:45 | XMS_ITS | Clinical Summary ---
Author Organization [facility] Address [address] [place] [address] Care Team Providers Care Uc Architect Name Role Phone Brenda Canchola MD Primary Care Provider [phone] Allergies Active Allergy Reactions Criticality Noted Date [...] History Medical History Date Comments Heart attack ([facility] 2009 cath with 4 stents Diabetes mellitus ([facility]) bor derline Asthma Hypertension Depression Anxiety Family [...] 6:45 EDT) HEPATITIS C AB W/REFLEX - [facility] Negative 02/05/2019 8:14 EDT [facility] Comment:Expected Values: Neg ative. 02/05/2019 6:45 EDT 02/05/2019 6:52 EDT Nathan Michael MD CHEMISTRY & BLOOD GA S ORDERABLES [facility] from Last 3 Months or Most Recently Relevant to Health Maintenance Care Teams Uc Architect Relationship Specialty Start Date End Date Brenda Canchola MD [address] [place] [address] [place] [address] PCP - General 08/03/10
--- OUTSIDE RECORDS SUMMARY | 2024-04-15 15:45 | XMS_ITS | Encounter Summary ---
Author Organization [facility] Address [address] [place] [address] Care Team Providers Care Dolphin Trainer Name Role Phone Brenda Canchola MD Primary Care Provider [phone] Encounter Details Date Type Department Care Team (Late st Contact Info) Description 02/05/2023 Lab Requisition [facility] Pathology & Laboratory Medicine - [facility] [address] [place], [place] [address] Outr Resulting Lab, Provider Social History Tobacco [...] Lyme Ab Negative Negative 02/06/2023 10:47 EDT [facility] Blood VENOUS BLOOD / Unknown 02/04/2023 21:15 EDT 02/05/2023 15:40 EDT Provider Outr Resulting Lab IMMUNOLOGY A ND SEROLOGY ORDERABLES [facility] [address] [place] [address] documented in this encounter Visit Diagnoses Not on filedocumented in this encounter Care Teams Dolphin Trainer Relationship Specialty Start Date End Date Brenda Canchola MD [address] [place] [address] [place] [address] PCP - General 08/03/10 documented as of this encounter
--- OUTSIDE RECORDS SUMMARY | 2024-04-15 15:45 | XMS_ITS | Referral Summary ---
Author Organization [facility] Address [address] [place] [address] Care Team Providers Care River Driver Name Role Phone Brenda Canchola MD Primary Care Provider [phone] Allergies Active Allergy Reactions Criticality Noted Date [...] 6:45 EDT) HEPATITIS C AB W/REFLEX - [facility] Negative 02/05/2019 8:14 EDT [facility] Comment:Expected Values: Neg ative. 02/05/2019 6:45 EDT 02/05/2019 6:52 EDT Nathan Michael MD CHEMISTRY & BLOOD GA S ORDERABLES [facility] from Last 3 Months or Most Recently Relevant to Health Maintenance Care Teams River Driver Relationship Specialty Start Date End Date Brenda Canchola MD [address] [place] [address] [place] [address] PCP - General 08/03/10
--- OUTSIDE RECORDS SUMMARY | 2024-04-15 15:46 | XMS_ITS | Encounter Summary ---
Author Organization [facility] Address [address] [place] [address] Care Team Providers Care Is/It Project Manager Name Role Phone Brenda Renee MD Primary Care Provider [phone] Encounter Details Date Type Department Care Team (Late st Contact Info) Description 09/21/2011 Results Only [facility] ([facility]) [address] [place], [place] [address] Liss Griffiths MD [address] [place] [address] [place] [address] Social History Tobacco Use Types Packs/Day Years [...] when reading/interpreti ng unformatted reports. Name: ? ALZIE MANJARREZ ? Accession #: ? [id number] ? : ? 1960 (Age: 50) ??F [...] Griffiths on 09/26/2011 at 4:20 p.m. (Dr. Dong)/[facility] Document reviewed and electronically signed by: AME [...] as (A1) and (A2) following filtration. ??(Juanjose Fonseca)/[facility] End of Report [facility] 09/21/2011 09/22/2011 9:0 6 EDT Liss Griffiths MD PATHOLOGY ORDERABLES [facility] [address] [place] [address] documented in this encounter Visit Diagnoses Not on filedocumented in this encounter Care Teams Is/It Project Manager Relationship Specialty Start Date End Date Brenda Renee MD [address] [place] [address] [place] [address] PCP - General 08/03/10 documented as of this encounter
--- OUTSIDE RECORDS SUMMARY | 2024-04-15 15:46 | XMS_ITS | Encounter Summary ---
Author Organization [facility] Address [address] [place] [address] Care Team Providers Care Shipsmith Name Role Phone Brenda Canchola MD Primary Care Provider [phone] Encounter Details Date Type Department Care Team (Late st Contact Info) Description 10/04/2021 Lab Requisition [facility] Pathology & Laboratory Medicine - [facility] [address] [place], [place] [address] Outr Resulting Lab, Provider Social History Tobacco [...] Outr Resulting Lab MICROBIOLOGY - GENERAL ORDERABLES [facility] [address] [place] [address] * COVID-19 TESTING (10/03/2021 17:23 EDT) COVID-19 rt-PCR Result Negative Negative 10/05/2021 13:50 EDT [facility] Comment: This test has [...] performed using the flaquito SARS-CoV-2 assay ([employer] on the Flaquito 6800 System Performing Lab Flaquito [address] [facility] 10/05/2021 13:50 EDT [facility] Swab 10/03/2021 17:2 3 EDT 10/04/2021 21:43 EDT Provider Outr Resulting Lab MICROBIOLOGY - GENERAL ORDERABLES [facility] [address] [place] [address] documented in this encounter Visit Diagnoses Not on filedocumented in this encounter Care Teams Shipsmith Relationship Specialty Start Date End Date Brenda Canchola MD [address] [place] [address] [address] [place], [place] [address] PCP - General 08/03/10 documented as of this encounter
--- OUTSIDE RECORDS SUMMARY | 2024-04-15 15:46 | XMS_ITS | Encounter Summary ---
Author Organization [facility] Address [address] [place] [address] Care Team Providers Care Mixing And Dispensing Supervisor Name Role Phone Brenda Canchola MD Primary Care Provider [phone] Encounter Details Date Type Department Care Team (Late st Contact Info) Description 09/10/2010 Results Only [facility] Laboratory Services - [facility] ([facility]) [address] [place], [place] [id number] Brenda Canchola MD [facility] [facility] [place] [address] Social History Tobacco Use Types [...] ? ALIZE MANJARREZ ? Accession #: ? [id number] ? : ? 1960 (Age: 49) ??F [...] Canchola MD PATHOLOGY ORDERABLES Performing Organization Address City/State/[facility] Co de Phone Number [facility] [address] [place] [address] documented in this encounter Visit Diagnoses Not on filedocumented in this encounter Care Teams Mixing And Dispensing Supervisor Relationship Specialty Start Date End Date Brenda Canchola MD [address] [place] [address] [place] [address] PCP - General 08/03/10 documented as of this encounter
--- OUTSIDE RECORDS SUMMARY | 2024-04-15 15:46 | XMS_ITS | Encounter Summary ---
Author Organization [facility] Address [address] [place] [address] Care Team Providers Care Text Transcriber Name Role Phone Brenda Canchola MD Primary Care Provider [phone] Encounter Details Date Type Department Care Team (Late st Contact Info) Description 10/14/2021 Lab Requisition [facility] Pathology & Laboratory Medicine - [facility] [address] [place], [place] [address] Outr Resulting Lab, Provider Social History Tobacco [...] Outr Resulting Lab MICROBIOLOGY - GENERAL ORDERABLES [facility] [address] [place] [address] * COVID-19 TESTING (10/13/2021 18:40 EDT) COVID-19 rt-PCR Result Negative Negative 10/15/2021 11:43 EDT [facility] Comment: This test has [...] performed using the flaquito SARS-CoV-2 assay ([employer] on the Flaquito 6800 System Performing Lab Fla[address] [facility] 10/15/2021 11:43 EDT [facility] Swab 10/13/2021 18:4 0 EDT 10/14/2021 17:01 EDT Provider Outr Resulting Lab MICROBIOLOGY - GENERAL ORDERABLES [facility] [address] [place] [address] documented in this encounter Visit Diagnoses Not on filedocumented in this encounter Care Teams Text Transcriber Relationship Specialty Start Date End Date Brenda Canchola MD [address] [place] [address] [address] [place], [place] [address] PCP - General 08/03/10 documented as of this encounter
--- OUTSIDE RECORDS SUMMARY | 2024-04-15 15:46 | XMS_ITS | Encounter Summary ---
Author Organization [facility] Address [address] [place] [address] Care Team Providers Care Oxygen System Tester Name Role Phone Unavailable Primary Care Provider Unavailabl e Encounter Details Date Type Department Care Team (Late st Contact Info) Description 08/15/2008 Before PRISM Converted Visit (Maple) [facility] - Maple conversion [address] [place] [address] Brenda Canchola MD [facility] [facility] [address] [place], [place] [id number] Social History Tobacco Use Types Packs/Day Years [...] MICROBIOLOGY - GENER AL ORDERABLES [facility] [address] [address] * CYTOPATHOLOGY (08/15/2008 0:00 EST) Pathology Report: CYTOPATHOLOGY REPORT ? Reports generated via electronic interface contain original data; ? however they are lacking the format of the original report. ? Caution should be taken when reading/interpreti ng unformatted reports. ? Name: ? ALIZE MANJARREZ ? Accession #: ? [id number] ? : ? 1960 (Age: 47) ??F [...] ? (LSIL). ? EDUCATIONAL NOTES/RECOMMENDATI ONS ? [facility] recommends following the 2006 Consensus Guidelines for [...] MD PATHOLOGY ORDERABLES [facility] [address] [place] [address] documented in this encounter Visit Diagnoses Not on filedocumented in this encounter
--- OUTSIDE RECORDS SUMMARY | 2024-04-15 15:46 | XMS_ITS | Clinical Summary ---
[facility] [place] [address] Care Team Providers Care Mechanical Meter Tester Name Role Phone Daryn Garrett MD Primary Care Provider Allergies Active Allergy [...] 03/22/2023 Active inhalational spacing device (Hesham Aerosol Coffee Enhancer) SpacerIndications:C hronic obstructive pulmonary disease, unspecified COPD type 1 each by [facility]Non-Drug; Combo Route) route as needed. 1 each 2 06/20/2023 Active lamoTRIgine (LaMICtal) 25 mg tabletIndications:b ipolar disorder in remission Take 50 mg by mouth nightly. Indications: bipolar disorder in remission Active Blood-Glucose Meter,Continuous (Dexcom G7 Orthopedic Assistant) MiscIndications:Typ e 2 diabetes mellitus with hyperglycemia, without long-term current use of insulin 1 Device by [facility].(Non-Drug; Combo Route) route continuous. 08/18/2023 Active Blood-Glucose Sensor (Dexcom G7 Sensor) DeviceIndications:T ype 2 diabetes mellitus with hyperglycemia, without long-term current use of insulin 1 Device by [facility].(Non-Drug; Combo Route) route every 10 days. 3 each 11 08/18/2023 Active lamoTRIgine (LaMICtal) 150 mg tablet Take 150 mg by mouth Daily at Noon. 08/17/2023 Active fluticasone propionate (Flonase) 50 mcg/actuation [place], Suspension SPRAY 1 SPRAY IN EACH NOSTRIL [...] 03/20/2024 fluticasone furoate-umeclidiniu m-vilanterol (Trelegy Ellipta) 200-62.5-25 mcgIndications:It Architect lorena obstructive pulmonary disease, unspecified COPD type [...] 07/2018 Overview (08/01/2019): 2018 Normal Pap, HPV Top And Seat Cover Fitter eConsult 2019: She should have pap/HPV cotest [...] in remission 05/10/20 Overview (05/10/2019): Diagnosis in [facility] records, unconfirmed Anxiety [...] that hospitalization.. Coronary artery disease invo lving [place] coronary artery of [place] heart with angina pectoris 10/09/2007 Overview (06/27/2019): [...] Team Description 04/08/2024 Refill Family Medicine at [facility] [address] [place] [address] Rodney Padilla MD Essential hypertension 04/08/2024 Refill Family Medicine at [facility] [address] [place] [address] Rodney Padilla MD 03/28/2024 Refill Family Medicine at [facility] [address] [place] [address] Rodney Padilla MD 03/22/2024 Refill Family Medicine at [facility] [address] [place] [address] Rodney Padilla MD 03/21/2024 Telephone Family Medicine at [facility] [address] [place] [phone] [place] Mon[place] 03/20/2024 3:30 PM EDT Office Visit Family Medicine at [facility] [address] [place] [phone] Rodney Padilla MD Irritable bowel syndrome, unspecified type (Primary Dx); Type 2 diabetes mellitus without long-term current use of insulin 03/20/2024 2:00 PM EDT TH Visit (TeleHealth) Family Medicine at [facility] [address] [place] [phone] Julia Low [facility] Type 2 diabetes mellitus without long-term current use of insulin (Primary Dx) 03/20/2024 11:00 AM EDT Laboratory Appointment Lab at [facility] [address] [place] [address] Type 2 diabetes mellitus without long-term current use of insulin 03/19/2024 Travel 03/14/2024 Travel 03/13/2024 Travel 02/28/2024 Notes Only Sleep Center at [facility] [address] [place] [address] Barbra Martínez, RT 02/22/2024 Travel 02/18/2024 Refill Family Medicine at [facility] [address] [place] [address] Rodney Padilla MD Essential hypertension 02/10/2024 Refill Family Medicine at [facility] [address] [place] [address] Rodney Padilla MD Mixed hyperlipidemia 02/10/2024 Refill Family Medicine at [facility] [address] [place] [address] Rodney Padilla MD Mixed hyperlipidemia 02/10/2024 Refill Family Medicine at [facility] [address] [place] [address] Luis E Narayan MD 02/01/2024 11:15 AM EDT Office Visit [place]ology [place] [phone] Arturo Cordero MD Neilan, Kathleen M, PRINCIPAL ARCHITECT Malignant melanoma of conjunctiva, left (Primary Dx); Lung nodule; Renal cell cancer, left 02/01/2024 8:12 AM EDT - 02/01/2024 11:59 PM EDT Hospital Encounter Hematology [place] [phone] Malignant melanoma of conjunctiva, left Discharge Disposition: Home 02/01/2024 8:04 AM EDT - 02/01/2024 8:11 AM EDT Hospital [place] [address] Arturo Cordero MD Malignant melanoma of conjunctiva, left Discharge Disposition: Home 02/01/2024 Travel 01/29/2024 Travel from Last 3 Months Immunizations Name Administration Dates Next Due Covid-19 Bivalent (Pfizer Co mirnaty) 12yrs+ ([id number]) 06/07/2022 Influenza Quadrivalent with Preservative 05/06/2020 Influenza [...] 05/01/2024 11:20 AM EDT Appointment Mammography/[place] [phone] Rodney Padilla MD 05/01/2024 1:45 PM EDT Office [place] [address] Juanpablo Hernandez MD [facility] [place] [address] 05/23/2024 2:45 PM EST Clinical Support Family Medicine at [facility] [address] [place] [phone] Julia Low, [facility] 01/30/2025 1:30 PM EDT Laboratory Appointment Lab at [facility] Hematology Oncology [address] [place] [address] 01/30/2025 3:[address] [place] [phone] Arturo Cordero MD [facility] DR HEMATOLOGY [place] [address] 01/30/2025 4:15 PM EDT Office Visit Hematology [place] [phone] Arturo Cordero MD [facility] DR HEMATOLOGY [place] [address] Health Maintenance Due Date Last Done Comments CT Colonography 1960 FIT DNA 1960 FIT 1960 Sigmoidoscopy (10 year) with FIT yearly 1960 Sigmoidoscopy 1960 Zoster vaccine (1 of 2) 11/11/2009 Advance Directive 11/11/2014 HPV test 01/07/2023 01/07/2018 (See prior EHR) PAP Smear 01/07/2023 01/07/2018 (See prior EHR) Covid-19 Vaccine (2 - season) 2024 06/07/2022 Influenza (Flu) vaccine (1 [...] Completed 06/21/2019 Medical Devices Implanted Type Area Real Estate Legal Secretary Device Identifier Shelf Expiration Date Model / Serial / Lot Cryopreserved Human Amniotic Membrane Implanted:Qty: 1 on 05/14/2020 by Juanpablo Hernandez MD at [facility] Left: Eye 03/27/2022 [id number] / [id number] / Procedures Procedure Name Priority Date/Time Associated Diagnosis Comments ECG SCAN 04/13/2024 12:00 AM EDT HEMOGLOBIN A1C Routine 03/20/2024 11:05 AM EDT [...] Recently Relevant to Health Maintenance Results * Scan Doc: ECG (04/13/2024 12:00 AM EDT) Only the most recent of2 resultswithin the time period is included. Narrative 04/13/2024 12:00 AM EDT Ordered by an unspecified provider. Scanning Provider MEDIA MGR SCAN EXT O RDR/RSLT * (ABNORMAL) Hemoglobin A1c (03/20/2024 11:05 AM EDT) Hemoglobin A1c 7.7(H) 4.3 - 5.6 % 03/20/2024 2:06 PM EDT [facility] Comment: Per ADA guidelines, without [...] red blood cell turnover may not be support representative of glycemic control. Reference Interval: 4.3 - 5.6% 5.7 - 6.4%: Consistent with prediabetes >=6.5%: Consistent with diagnosis of diabetes mellitus Estimated Average Glucose 174 mg/dL 03/20/2024 2:06 PM EDT [facility] Blood VENOUS BLOOD SPECIMEN / Unknown Venipuncture / Unknown 03/20/2024 11:05 AM EDT 03/20/2024 11:05 AM EDT Rodney Padilla MD CHEMISTRY ORDERABLE S [facility] [place] [phone] * CT Chest Abdomen Pelvis w Contrast (Generic) (02/01/2024 10:24 AM EDT) WORKSTATION ID [id number] DH RAD Anatomical Region Laterality Modality Abdomen, [...] questions please contact the health acute care physical therapist that requested your imaging first. ? Narrative [...] have questions please contactthe health acute care physical therapist that requested your imaging first. Electronically signed by: Leo Camilo MD, [facility]([phone]), at 02/02/2024 9:52 AM Arturo Cordero MD IMG CT ORDERABLES * CT Neck Soft Tissue w Contrast (Generic) (02/01/2024 10:24 AM EDT) WORKSTATION ID [id number] RAD Anatomical Region Laterality Modality Neck, Head [...] questions please contact the health acute care physical therapist that requested your imaging first. ? Narrative [...] have questions please contactthe health acute care physical therapist that requested your imaging first. Electronically signed by: Dipika Palacios [facility]([phone]), at 02/02/2024 4:32 PM Arturo Cordero MD IMG CT ORDERABLES * (ABNORMAL) Hemogram (02/01/2024 8:19 AM EDT) White Blood Cell 8.0 4.0 - 9.5 x10(3)/mc L [facility] Red Blood Cell 4.47 4.00 - 5.21 x10(6)/mc L [facility] Hemoglobin 13.1 11.7 - 15.5 g/dL [facility] Hematocrit 39.4 35.7 - 45.8 % [facility] Mean Cell Volume 88.1 82.6 - 94.4 fL [facility] Mean Cell Hemoglobin 29.3 27.1 - 32.0 pg [facility] Mean Cell Hemoglobin Concentration 33.2 31.7 - 35.0 g/dL [facility] Platelet 371(H) 145 - 357 x10(3)/mc L [facility] RDW Standard Deviation 45.4 37.0 - 46.0 fL [facility] RDW coefficient of variation 14.3(H) 11.5 - 14.1 % [facility] Mean Platelet Volume 9.4 7.6 - 12.9 fL [facility] NRBC% auto 0.0 % [facility] NRBC Absolute 0.000 0.000 - 0.000 x10(3)/ L [facility] Blood 02/01/2024 8:19 AM EDT 02/01/2024 8:39 AM EDT Narrative Resulting Agency Comment Spec In Lab Tee Lara MD HEMATOLOGY ORD ERABLES [facility] [place] [address] * Differential, Automated (02/01/2024 8:19 AM EDT) Neutrophil % 65.9 % [facility] Neutrophil Absolute 5.25 1.70 - 6.10 x10(3)/[facility] Lymph % 24.4 % [facility] Lymphocytes Abs 1.9 0.9 - 3.2 x10(3)/[facility] Monocyte % 7.5 % [facility] Monocyte Abs 0.6 0.3 - 0.9 x10(3)/[facility] Eos % 1.3 % [facility] Eosinophils Abs 0.1 0.0 - 0.4 x10(3)/[facility] Basophil % 0.6 % [facility] Baso Absolute 0.0 0.0 - 0.1 x10(3)/[facility] Immature Gran % 0.30 % [facility] Comment: Immature granulocytes(IG's)percentage and absolute count will include metamyelocytes, myelocytes, and promyelocytes. Blood smears from CBCs yielding IG's will be scanned manually for concordance. If this scan disagrees with the automated IG or if promyelocytes are noted, a manual differential will be performed. Immature Gran Absolute 0.02 0.00 - 0.04 x10(3)/mcL [facility] Blood 02/01/2024 8:19 AM EDT 02/01/2024 8:39 AM EDT Narrative Resulting Agency Comment Spec In Lab Tee Lara MD HEMATOLOGY ORD ERABLES Performing Organization Address [facility]/ZIP Co de Phone Number [facility] [place] [address] * Lactate Dehydrogenase (02/01/2024 8:19 AM EDT) Lactate Dehydrogenase 195 110 - 220 unit/L [facility] Blood 02/01/2024 8:19 AM EDT 02/01/2024 8:39 AM EDT Narrative Resulting Agency Comment Spec In Lab Arturo Cordero MD CHEMISTRY ORDERABLES Performing Organization Address [facility] Co de Phone Number [facility] [place] [address] * Comprehensive metabolic panel (non-fasting) (02/01/2024 8:19 AM EDT) Glucose 162 65 - 199 mg/dL [facility] Comment:Diabetes: >=200 mg/d L plus symptoms Blood Urea Nitrogen 14 8 - 18 mg/dL [facility] Creatinine 0.90 0.70 - 1.20 mg/dL [facility] Sodium 140 135 - 145 mmol/L [facility] Potassium 4.7 3.5 - 5.0 mmol/L [facility] Comment: Please note: ??Patients with WBC >100,000 may have falsely elevated Potassium levels. ??For accurate Potassium quantification in these patients send serum separator tube (gold top) for subsequent determinations. ??Contact the Clinical Chemistry Laboratory if there are any questions. Chloride 105 98 - 107 mmol/L [facility] Carbon Dioxide 25 22 - 31 mmol/L [facility] Anion Gap 10 5 - 15 mmol/L [facility] Calcium 9.4 8.5 - 10.5 mg/dL [facility] Protein, Total 6.8 6.1 - 8.0 g/dL [facility] Albumin 4.2 3.2 - 5.2 g/dL [facility] Aspartate Aminotransferase 21 0 - 30 unit/L [facility] Alanine Aminotransferase 28 0 - 30 unit/L [facility] Alkaline Phosphatase 92 35 - 105 unit/L [facility] Bilirubin, Total 0.3 0.2 - 1.3 mg/dL [facility] Est Glomerular Filtration Rate 71 >=60 mL/min/1. 73 m?? [facility] Comment: This patient's estimated GFR [...] In Lab Arturo Cordero MD CHEMISTRY ORDERABLES [facility] [place] [address] * U Albumin/Cre Ratio (12/20/2023 2:28 PM [...] [facility] Creatinine, Urine 75 mg/dL [facility] Urine 12/20/2023 2:28 PM EDT 12/20/2023 4:11 PM EDT Narrative Resulting Agency Comment Spec In Lab Rodney Padilla MD URINE ORDERABLES [facility] [place] [address] * Mammo Screening Cad and Jose Guadalupe [...] PM EST) Hepatitis C Antibody Negative Negative [facility] Blood specimen (specimen) 06/21/2019 2:09 PM EST 06/21/2019 6:01 PM EST Narrative Resulting Agency Comment Spec In Lab Luis E Narayan MD CHEMISTRY ORDERABLE S [facility] [place] [address] * HIV Screen, 4th Generation ([facility]/CGP/APD) (06/21/2019 2:09 PM EST) HIV Ab/Ag Screen Negative Negative [facility] Comment: This 4th Generation HIV [...] Luis E Narayan MD CHEMISTRY ORDERABLE S [facility] [place] [address] from Last 3 Months or Most Recently [...] capacity to make decision: Yes Care Teams Mechanical Meter Tester Relationship Specialty Start Date End Date Daryn Garrett MD [facility] [address] LILI WALKER - [place] [address] PCP - General 04/10/24
--- OUTSIDE RECORDS SUMMARY | 2024-04-15 15:46 | XMS_ITS | Encounter Summary ---
Author Organization [facility] Address [address] [place] [address] Care Team Providers Care Plastic Block Boiler Reliner Name Role Phone Brenda Renee MD Primary Care Provider [phone] Encounter Details Date Type Department Care Team (Late st Contact Info) Description 01/24/2014 Results Only [facility] Laboratory Services - [facility] ([facility] [address] [place], [place] [id number] Brenda Renee MD [facility] [place] [address] Social History Tobacco Use Types [...] ? ALIZE MANJARREZ ? Accession #: ? [id number] ? : ? 1960 (Age: 53) ??F [...] types 16,18,31,33,35, 39,45,51,52,56,58, 59,66, and 68 by gamer mediated amplification. Comments Document reviewed and electronically signed by: ? System Interface ? Report date: 02/04/2014 By the signature above, the attending physician certifies that he/she has personally conducted a gross and/or microscopic examination of the described specimens and rendered or confirmed the above diagnosis. End of Report [facility] 01/24/2014 01/28/2014 Brenda Renee MD PATHOLOGY ORDERABLES [facility] [address] [place] [address] documented in this encounter Visit Diagnoses Not on filedocumented in this encounter Care Teams Plastic Block Boiler Reliner Relationship Specialty Start Date End Date Brenda Renee MD [address] [place] [address] [place] [address] PCP - General 08/03/10 documented as of this encounter
--- OUTSIDE RECORDS SUMMARY | 2024-04-15 15:46 | XMS_ITS | Encounter Summary ---
Author Organization [facility] Address [address] [place] [address] Care Team Providers Care Patrol Agent Name Role Phone Unavailable Primary Care Provider Unavailabl e Encounter Details Date Type Department Care Team (Late st Contact Info) Description 12/01/2005 Results Only [facility] conversion [address] [place] [address] Santos Shay MD [address] [facility] [address] [place] [place] [phone] Social History Tobacco Use Types Packs/Day Years [...] ? ALIZE MANJARREZ ? Accession #: ? [id number] ? : ? 1960 (Age: 45) ??F [...] entirely submitted as (A1) and (A2). ??(Gwyn Oliveros/[facility] ?? End of Report [facility] 12/01/2005 12/01/2005 15: 25 EDT Santos Shay MD PATHOLOGY ORDERABLES [facility] [address] [place] [address] documented in this encounter Visit Diagnoses Not on filedocumented in this encounter
--- OUTSIDE RECORDS SUMMARY | 2024-04-15 15:46 | XMS_ITS | Encounter Summary ---
Author Organization [facility] Address [address] [place] [address] Care Team Providers Care Tracer Bullet Charging Machine Operator Name Role Phone Unavailable Primary Care Provider Unavailabl e Encounter Details Date Type Department Care Team (Late st Contact Info) Description 04/30/2010 Results Only [facility] Laboratory Services - [facility] ([facility]) [address] [place], [place] [address] Brenda Renee MD [address] [place] [address] [address] [place], [place] [id number] Social History Tobacco Use Types Packs/Day Years [...] ng unformatted reports. ? Name: ? ALIZE MANJARERZ ? Accession #: ? [id number] ? : ? 1960 (Age: 49) ??F [...] Renee MD PATHOLOGY ORDERABLES Performing Organization Address City/State/[facility] Co de Phone Number [facility] [address] [place] [phone] documented in this encounter Visit Diagnoses Not on filedocumented in this encounter
--- OUTSIDE RECORDS SUMMARY | 2024-04-15 15:46 | XMS_ITS | Encounter Summary ---
Author Organization [facility] Address [address] [place] [address] Care Team Providers Care Life Educator Name Role Phone Brenda Canchola MD Primary Care Provider [phone] Encounter Details Date Type Department Care Team (Latest Contact Info) Description 02/04/2019 10:07 EDT - 02/04/2019 23:59 EDT Hospital Encounter [facility] [address] [place] [address] Unknown, Provider, Discharge Disposition: Home or Self [...] Code Departure Means Destination Home or Self Detention documented in this encounter Plan of Treatment Not on file documented as of this encounter Visit Diagnoses Not on filedocumented in this encounter Care Teams Life Educator Relationship Specialty Start Date End Date Brenda Canchola MD [facility] [facility] [place] [address] PCP - General 08/03/10 documented as of this encounter
--- OUTSIDE RECORDS SUMMARY | 2024-04-15 15:46 | XMS_ITS ---
Author Organization [facility] [place] [address] Care Team Providers Care Alteration Tailor Apprentice Name Role Phone Daryn Garrett MD Primary [...] 07/2018 Overview (08/01/2019): 2018 Normal Pap, HPV Die Set Up Worker eConsult 2019: She should have pap/HPV [...] in remission 05/10/20 Overview (05/10/2019): Diagnosis in [facility] records, unconfirmed Anxiety 05/09/2019 Type 2 diabetes [...] that hospitalization.. Coronary artery disease invo lving [place] coronary artery of [place] heart with angina pectoris 10/09/2007 Overview (06/27/2019): [...] treatments are documented for this patient in [facility]. Treatments may have been administered in another [...]
--- OUTSIDE RECORDS SUMMARY | 2024-04-15 15:46 | XMS_ITS | Encounter Summary ---
Author Organization [facility] Address [address] [place] [address] Care Team Providers Care Savings Counselor Name Role Phone Brenda Canchola MD Primary Care Provider [phone] Encounter Details Date Type Department Care Team (Late st Contact Info) Description 08/17/2020 Lab Requisition [facility] Pathology & Laboratory Medicine - [facility] [address] [place], [place] [address] Outr Resulting Lab, Provider Social History Tobacco [...] Outr Resulting Lab MICROBIOLOGY - GENERAL ORDERABLES [facility] [address] [place] [address] * COVID-19 TESTING (08/17/2020 12:25 EST) COVID-19 rt-PCR Result Negative Negative 08/18/2020 15:45 EST [facility] Comment:Negative results do not preclude 2019-nCoV infection and should not be used as the sole basis for treatment or other patient management decisions. Negative results must be combined with clinical observations, patient history, and epidemiological information. Performing Lab [facility] 08/18/2020 15:45 EST [facility] Swab 08/17/2020 12:2 5 EST 08/17/2020 15:56 EST Provider Outr Resulting Lab MICROBIOLOGY - GENERAL ORDERABLES [facility] [address] [place] [address] documented in this encounter Visit Diagnoses Not on filedocumented in this encounter Care Teams Savings Counselor Relationship Specialty Start Date End Date Brenda Canchola MD [address] [place] [address] [place] [address] PCP - General 08/03/10 documented as of this encounter
--- OUTSIDE RECORDS SUMMARY | 2024-04-15 15:46 | XMS_ITS | Encounter Summary ---
Author Organization [facility] Address [address] [place] [address] Care Team Providers Care Research Animal Facility Supervisor Name Role Phone Brenda Canchola MD Primary Care Provider [phone] Reason for Visit * Reason Comments Joint Pain Encounter Details Date Type Department Care Team (Late st Contact Info) Description 08/04/2010 13:00 EST Office Visit [facility] Rheumatology & Immunology - [address] [id number] Del Ni MD [address] [place] [address], [address] [place] [phone] Miguel Leonard MD [address] [place] [id number] Osteoarthritis (Primary Dx) Social History Tobacco Use [...] be very helpful. 3. You can try [place] 3 fatty acids- 2,000 to 3000 mg per day. Talk with your protection engineer to make sure this is okay with [...] It is hard to hold a pen, manual plate filler a washcloth or snowblower because it's hard [...] with 11 refills 5. Can also try [place] 3 fatty acids, 0463-8185 mg daily but discuss with protection engineer first to makesure this is okay with [...] GA S ORDERABLES [facility] [address] [place] [address] * SED. RATE:WESTERGREN (08/04/2010 15:46 EST) Sed. Rate Westergren 14 0 - 30 mm/hr [facility] Blood specimen (specimen) 08/04/2010 15:46 EST 08/04/2010 15:49 EST Del Ni MD HEMATOLOGY & PF4 ORD ERABLES [facility] [address] [place] [address] * VITAMIN D (25,OH) (08/04/2010 15:46 EST) 25OH Vitamin D Tot 46.6 ng/ml [facility] Comment: Reference Range: <10 ng/ml: Deficient 10-30 ng/ml: Insufficient 30-100 ng/ml: Sufficient >100 ng/ml: Toxic Blood specimen (specimen) 08/04/2010 15:46 EST 08/04/2010 15:49 EST Del Ni MD CHEMISTRY & BLOOD GA S ORDERABLES Performing Organization Address [facility] de Phone Number [facility] [address] [place] [address] * TSH (08/04/2010 15:46 EST) TSH 1.67 0.35 - 5.00 uIU/ml [facility] Blood specimen (specimen) 08/04/2010 15:46 EST 08/04/2010 15:49 EST Del Ni MD CHEMISTRY & BLOOD GA S ORDERABLES Performing Organization Address [facility] [place] [address] * HIP UNILATERAL 1 VIEW (08/04/2010 15:00 EST) Anatomical Region Laterality Modality Other 08/04/2010 15:0 0 EST 08/05/2010 14:54 EST Narrative 08/05/2010 14:54 EST Two views of the left hand, 2 views of the right hand, AP ortho pelvis, and frog-leg lateral views of both hips dated Aug 04, 2010. Clinical history: 715.81-GPFKREOOIKKSKP-L3. bilateral hand pain and swelling. Bilateral hip [...] hips dated Aug 04, 2010. Clinical history: 715.22-PNTBIRASMETXQV-D2. bilateral hand pain and swelling. Bilateral hip [...] hips dated Aug 04, 2010. Clinical history: 715.13-WIHINQKFAGGMLT-E9. bilateral hand pain and swelling. Bilateral hip [...] hips dated Aug 04, 2010. Clinical history: 715.95-FXYHKWHQLHTDAW-F4. bilateral hand pain and swelling. Bilateral hip [...] hips dated Aug 04, 2010. Clinical history: 715.22-VLZXYNSZYSKQOL-I8. bilateral hand pain and swelling. Bilateral hip [...] hips dated Aug 04, 2010. Clinical history: 715.46-AJDQSBEPZVJQRY-P9. bilateral hand pain and swelling. Bilateral hip [...] hips dated Aug 04, 2010. Clinical history: 715.77-CZEILSGTWVBXOJ-R6. bilateral hand pain and swelling. Bilateral hip [...] hips dated Aug 04, 2010. Clinical history: 715.83-WNGSPGDGXAAIRY-W0. bilateral hand pain and swelling. Bilateral hip [...] needed. added in this encounter Care Teams Research Animal Facility Supervisor Relationship Specialty Start Date End Date Brenda Canchola MD [address] [place] [address] [place] [address] PCP - General 08/03/10 documented as of this encounter
--- OUTSIDE RECORDS SUMMARY | 2024-04-15 15:46 | XMS_ITS | Encounter Summary ---
Author Organization [facility] Address [address] [place] [address] Care Team Providers Care Desktop Administrator Name Role Phone Brenda Canchola MD Primary Care Provider [phone] Encounter Details Date Type Department Care Team (Late st Contact Info) Description 02/04/[address] [facility] Radiology Results [address] [place], [place] [phone] Kristin Rocha MD [address] [place] [phone] Social History Tobacco Use Types [...] 02/04/2019 2 2:36 EDT ETHYL ALCOHOL - [facility] Routine 02/04/2019 20:27 EDT COMPLETE BLOOD COUNT [...] CC: ? Transcribed Date/Time: 02/04/2019 (2243) ? Lactation Specialist: ? Printed Date/Time: 03/27/2019 (1817) ? PAGE 1 ? Signed Report ? Procedure Note Doris Posadas MD - 05/14/2019 EXAM: RADIOLOGY/CHEST PA LAT EX. D/ (8638) CLINICAL INFORMATION: weakness, recent pneumonia EXAM: XR [...] Posadas MD CC: Transcribed Date/Time: 02/04/2019 (2243) Lactation Specialist: Printed Date/Time: 03/27/2019 (1119) PAGE 1 Signed Report Kristin Rocha MD [...] CC: ? Transcribed Date/Time: 02/04/2019 (223) ? Lactation Specialist: ? Printed Date/Time: 03/27/2019 (1818) ? PAGE [...] Posadas MD CC: Transcribed Date/Time: 02/04/2019 (223) Lactation Specialist: HIS.[email or web address] Printed Date/Time: 03/27/2019 (9633) PAGE 1 Signed Report Kristin Rocha MD IMG CT ORDERAB LES * MAGNESIUM (02/04/2019 20:27 EDT) Magnesium 2.20 1.7 - 2.8 mg/dL 02/04/2019 21:08 EDT [facility] 02/04/2019 20:2 7 EDT 02/04/2019 20:29 EDT [facility] - 02/04/2019 21:25 EDT AOT: 02/04/19 2105: BNP Kristin Rocha MD CHEMISTRY & BL OOD GAS ORDERABLES [facility] * ETHYL ALCOHOL - [facility] (02/04/2019 20:27 EDT) Pathologist [facility] ETHYL ALCOHOL - [facility] <10.0 <10 mg/dL 02/04/2019 21:08 EDT [facility] 02/04/2019 20:2 7 EDT 02/04/2019 20:29 EDT [facility] - 02/04/2019 21:25 EDT AOT: 02/04/19 2105: BNP Kristin Rocha MD CHEMISTRY & BL OOD GAS ORDERABLES [facility] * (ABNORMAL) COMPREHENSIVE METABOLIC PANEL (CMP) (02/04/2019 20:27 EDT) Albumin % 3.3(L) 3.4 - 4.9 g/dL [facility]2019 [facility] ALKALINE PHOSPHATASE - [facility] 58 38 - 126 U/L 02/04/2019 21:08 [facility] BILIRUBIN TOTAL 0.6 0.2 - 1.3 mg/dL 02/04/2019 21:08 [facility] BUN - [facility] 17 10 - 26 mg/dL 02/04/2019 21:08 [facility] CALCIUM - [facility] 8.8 8.5 - 10.5 mg/dL 02/04/2019 21:08 [facility] Chloride 93(L) 96 - 110 mmol/L 02/04/2019 21:08 [facility] CO2 Total 27 22 - 32 mEq/L 02/04/2019 21:08 [facility] CREATININE 0.77 0.52 - 1.04 mg/dL 02/04/2019 21:08 [facility] eGFR >60 02/04/2019 21:08 [facility] Comment: Chronic renal impairment is defined as GFR <60 Multiply result by 1.210 for patients. eGFR calculated using the IDMS-traceable MDRD Study Equation. ??(effective 05/12/2014) Anion Gap 9 0 - 18 02/04/2019 21:08 [facility] GLUCOSE - [facility] 262(H) 70 - 100 mg/dL 02/04/2019 21:08 [facility] Potassium 3.7 3.5 - 5.0 mEq/L 02/04/2019 21:08 [facility] Sodium 129(L) 136 - 145 mEq/L 02/04/2019 21:08 [facility] TOTAL PROTEIN - [facility] 5.8(L) 6.2 - 8.2 gm/dL 02/04/2019 21:08 [facility] SGOT/AST - [facility] 124(H) 14 - 36 U/L 02/04/2019 21:08 [facility] SGPT/ALT - [facility] 133(H) 9 - 52 U/L 9 21:08 [facility] 02/04/2019 20:2 7 EDT 02/04/2019 20:29 [facility] - 02/04/2019 21:25 EDT AOT: 02/04/19 2105: BNP Kristin Rocha MD CHEMISTRY & BL OOD GAS ORDERABLES [facility] * NT PRO BNP (02/04/2019 20:27 EDT) NT-pro BNP 190 <300 pg/mL 02/04/2019 21:25 EDT [facility] Comment: NT-proBNP values less than [...] 20:2 7 EDT 02/04/2019 20:29 EDT Narrative [facility] - 02/04/2019 21:25 EDT AOT: 02/04/19 2105: BNP Kirstin Rocha MD CHEMISTRY & BL OOD GAS ORDERABLES Performing Organization Address City/[facility]/ZIP Co de Phone Number [facility] * THYROID CASCADE (02/04/2019 20:27 EDT) Pathologist [facility] TSH 4.05 0.46 - 4.68 uIU/mL 02/04/2019 21:38 EDT [facility] 02/04/2019 20:2 7 EDT 02/04/2019 20:30 EDT Kristin Rocha MD CHEMISTRY & BL OOD GAS ORDERABLES [facility] * (ABNORMAL) TROPONIN I (02/04/2019 20:27 EDT) Pathologist [facility] Troponin I (ng/mL) 0.037(HH) 0.000 - 0.034 ng/mL 02/04/2019 21:01 EDT [facility] Comment: Result called to CATHY [...] BL OOD GAS ORDERABLES Performing Organization Address [facility]/ZIP Co de Phone Number [facility] * D-DIMER (02/04/2019 20:27 EDT) Pathologist [facility] D-Dimer 193 <230 ng/mLDDU 02/04/2019 21:20 EDT [facility] Comment: CUTOFF VALUE FOR THE EXCLUSION OF DVT and PE: 230 ng/mL D-dimer units. Any use of the age-adjusted cutoff value is a post-analytic modification of this FDA-approved test and is considered off-label use of the test result. [facility] Laboratory does not have literature to support the validity of an age-adjusted cutoff for our specific assay. 02/04/2019 20:2 7 EDT 02/04/2019 21:06 EDT Kristin Rocha MD HEMATOLOGY & P F4 ORDERABLES Performing Organization Address [facility]/ZIP Co de Phone Number [facility] * (ABNORMAL) COMPLETE BLOOD COUNT WITH DIFFERENTIAL (AUTO) (02/04/2019 20:27 EDT) Pathologist [facility] ABSOLUTE NEUTROPHIL COUN - [facility] 9.6(H) 2.2 - 8.85 10e3/uL 02/04/2019 20:35 EDT [facility] BASO # - [facility] 0.01 0.01 - 0.11 10e/uL 02/04/2019 20:35 EDT [facility] BASO % - [facility] 0 0 - 2 % 02/04/2019 20:35 [facility] EOS # - [facility] 0.09 0.03 - 0.61 10e3/ul 02/04/2019 20:35 [facility] EOS % - [facility] 1 0 - 5 % 02/04/2019 20:35 [facility] GRAN % - [facility] 68.5 40 - 80 % 02/04/2019 20:35 [facility] HEMATOCRIT - [facility] 37.5 34.9 - 44.4 % 02/04/2019 20:35 [facility] HEMOGLOBIN - [facility] 12.8 11.6 - 15.2 g/dl 02/04/2019 20:35 [facility] IG# - [facility] 0.16 0 - 0.7 10e3/uL 02/04/2019 20:35 [facility] IG% - [facility] 1.1(H) 0 - 0.9 % 02/04/2019 20:35 [facility] LYMPH # - [facility] 3.1 1.09 - 3.3 10e3/ul 02/04/2019 20:35 [facility] LYMPH% - [facility] 22.5 20 - 40 % 02/04/2019 20:35 [facility] MEAN CORPUSCULAR HGB - [facility] 29.6 26.7 - 33.3 pg 02/04/2019 20:35 [facility] MEAN CORPUSCULAR HGB CONC - [facility] 34.1 32.1 - 35.9 g/dL 02/04/2019 20:35 [facility] MEAN CELL VOLUME - [facility] 86.6 81 - 98 fl 02/04/2019 20:35 [facility] MONO # - [facility] 1.0(H) 0.1 - 0.8 10e3/uL 02/04/2019 20:35 [facility] MONO% - [facility] 7.2 0 - 12 % 02/04/2019 20:35 [facility] PLATELET COUNT 345 141 - 377 10e3/ul 02/04/2019 20:35 [facility] RED BLOOD COUNT - [facility] 4.33 3.86 - 5.04 10e3/ul 02/04/2019 20:35 EDT [facility] RED CELL DISTRI WIDTH - [facility] 14.1 <14.7 % 02/04/2019 20:35 EDT [facility] WHITE BLOOD COUNT - [facility] 14.0(H) 4.0 - 12.4 10e3/ul 02/04/2019 20:35 EDT [facility] 02/04/2019 20:2 7 EDT 02/04/2019 20:30 EDT Kristin Rocha MD HEMATOLOGY & P F4 ORDERABLES [facility] * (ABNORMAL) POCT GLUCOSE (02/04/2019 19:45 EDT) [facility] Glucose, POC 262(H) 70 - 100 mg/dL 02/04/2019 19:51 EDT [facility] 02/04/2019 19:4 5 EDT 02/04/2019 19:51 EDT Mack Varghese MD POINT OF CARE TEST O RDERABLES [facility] documented in this encounter Visit Diagnoses Not on filedocumented in this encounter Care Teams Desktop Administrator Relationship Specialty Start Date End Date Brenda Canchola MD [address] [place] [address] [place] [address] PCP - General 08/03/10 documented as of this encounter
--- OUTSIDE RECORDS SUMMARY | 2024-04-15 15:46 | XMS_ITS | Encounter Summary ---
Author Organization [facility] Address [address] [place] [address] Care Team Providers Care Transformation Analyst Name Role Phone Brenda Canchola MD Primary Care Provider [phone] Encounter Details Date Type Department Care Team (Late st Contact Info) Description 02/05/2019 Historical Results Only [facility] Radiology Results [address] [place] [address] Unknown, Provider, Social History Tobacco Use Types [...] MD ? CC: ? Transcribed Date/Time: 02/05/2019 (7508) ? Hand Marker: ? Printed Date/Time: 03/27/2019 (3128) ? PAGE 2 ? Signed Report ? [...] Doris Posadas MD CC: Transcribed Date/Time: 02/05/2019 (915) Hand Marker: Printed Date/Time: 03/27/2019 (641) PAGE 2 Signed Report Ruby Frederick MD IMG CT ORDERABLES * (ABNORMAL) POCT GLUCOSE (02/05/2019 19:27 EDT) Glucose, POC 121(H) 70 - 100 mg/dL 02/05/2019 19:31 EDT [facility] 02/05/2019 19:2 7 EDT 02/05/2019 19:31 EDT Nathan Michael MD POINT OF CARE TEST O RDERABLES [facility] * US EXTREMITY (02/05/2019 15:12 EDT) [...] MD ? CC: ? Transcribed Date/Time: 02/05/2019 (1185) ? Hand Marker: ? Printed Date/Time: 03/27/2019 (1817) ? PAGE 1 ? Signed Report ? Procedure Note Tay Velazquez MD - 05/14/2019 EXAM: ULTRASOUND/DOPPLER VEIN LOWER EXT B EX. D/ (4739) CLINICAL INFORMATION: SBLE - Swelling bilat. lower [...] Velazquez MD CC: Transcribed Date/Time: 02/05/2019 (1515) Hand Marker: Printed Date/Time: 03/27/2019 (1817) PAGE 1 Signed Report Ruby Frederick MD IMG US ORDERABLES * TROPONIN I (02/05/2019 13:30 EDT) Troponin I (ng/mL) <0.034 0.000 - 0.034 ng/mL 02/05/2019 14:06 EDT [facility] Comment: Interpretation comments: ??Cutoff for a [...] S ORDERABLES Performing Organization Address [facility]/ZIP Co de Phone Number [facility] * (ABNORMAL) POCT GLUCOSE (02/05/2019 11:54 EDT) Glucose, POC 223(H) 70 - 100 mg/dL 02/05/2019 11:57 EDT [facility] 02/05/2019 11:5 4 EDT 02/05/2019 11:57 EDT Nathan Michael MD POINT OF CARE TEST O RDERABLES Performing Organization Address [facility]/ZIP Co de Phone Number [facility] * (ABNORMAL) POCT GLUCOSE (02/05/2019 8:02 EDT) Glucose, POC 138(H) 70 - 100 mg/dL 02/05/2019 8:03 EDT [facility] 02/05/2019 8:02 EDT 02/05/2019 8:03 EDT Nathan Michael MD POINT OF CARE TEST O RDERABLES Performing Organization Address [facility]/ZIP Co de Phone Number [facility] * TRANSTHORACIC ECHO (TTE) COMPLETE (02/05/2019 7:06 EDT) Anatomical Region Laterality Modality Ultrasound 02/05/2019 7:06 EDT Narrative 02/05/2019 7:06 EDT ?[facility] ?[facility] [address], [place] [address] ? [id number] ? E C H O C A R D I O G R A M ? R E P O R T NAME: ALIZE MANJARREZ ? : 58 ? LOCATION: 2S ? TELEPHONE: [phone] ?MR#: [id number] ? *[facility]* *[facility]* [address] [place] [address] Date of study: 02/05/2019 Transthoracic Echocardiography M-mode, [...] AM. Test stop time: ??07:56 AM. PERFORMING ??[facility] ORDERING ?Nathan Michael REFERRING ?? Nathan Michael *PROCEDURE DATA* Procedure information: ??The patient was identified by two identifiers. This study was interpreted by [facility]. Pertinent images and digital data are archived for permanent storage and are available for subsequent review. No prior study was available for comparison. ??Study status: Routine. Transthoracic echocardiography. ??M-mode, complete 2D, complete ?[facility] ?[address] [place] [address], [place] [address] ? [id number] ? E C H O C A R D I O G R A M ? R E P O R T NAME: ALIZE MANJARREZ ? : 58 ? LOCATION: 2S ? TELEPHONE: [phone] ?MR#: [id number] ? spectral Doppler, and color Doppler. A Transthoracic Echocardiogram was performed. Scanning was performed from the parasternal, apical, subcostal, and suprasternal notch acoustic windows. Images were obtained using a [facility] IE33 2 cardiac ultrasound machine. Image quality [...] cava: The vessel was normal in size. ?[facility] ?[address] [place] [address], [place] [address] ? [id number] ? E C H O C A R D I O G R A M ? R E P O R T NAME: ALIZE MANJARREZ ? : 58 ? LOCATION: 2S ? TELEPHONE: [phone] ?MR#: [id number] ? Measurements Left ventricle ?Value ?Reference LV [...] S 2 ?? LA/aortic root ratio ?1.25 ?[facility] ?[facility] [address] [place], [place] [address] ? [id number] ? E C H O C A R D I O G R A M ? R E P O R T NAME: ALIZE MANJARREZ ? : [birth year] ? LOCATION: 2S ? TELEPHONE: [phone] ?MR#: [id number] ? Mitral valve ?Value ?Reference Mitral E/A [...] Procedure Note Rasta Davis MD - 04/28/2019 [facility] [address] [place], [place] [address] [id number] E C H O C A R D I O G R A M R E P O R T NAME: ALIZE MANJARREZ : 58LOCATION: 2S TELEPHONE: [phone] MR#: [id number] [id number] *[facility]* *[facility]* [address] [place] [address] Date of study: 02/05/2019 Transthoracic Echocardiography M-mode, [...] AM. Test stop time: 07:56 AM. PERFORMING [facility] ORDERING Nathan Michael REFERRING Nathan Michael *PROCEDURE DATA* Procedure information: The patient was identified by two identifiers. This study was interpreted by [facility]. Pertinent images and digital data are archived for permanent storage and are available for subsequent review. No prior study was available for comparison. Study status: Routine. Transthoracic echocardiography. M-mode, complete 2D, complete [facility] [address] [place] [address] [id number] E C H O C A R D I O G R A M R E P O R T NAME: ALIZE MANJARREZ : 58LOCATION: 2S TELEPHONE: [phone] MR#: [id number] spectral Doppler, and color Doppler. A Transthoracic Echocardiogram was performed. Scanning was performed from the parasternal, apical, subcostal, and suprasternal notch acoustic windows. Images were obtained using a [facility] IE33 2 cardiac ultrasound machine. Image quality [...] cava: The vessel was normal in size. [facility] [address] [place], [place] [address] X4280 E C H O C A R D I O G R A M R E P O R T NAME: ALIZE MANJARREZ: 58LOCATION: 2S TELEPHONE: [phone] MR#: [id number] [facility]#:[id number] Measurements Left ventricle Value Reference LV ID, [...] ml/m S 2 LA/aortic root ratio 1.25 [facility] [address] [place], [place] [address] X4280 E C H O C A R D I O G R A M R E P O R T NAME: ALIZE MANJARREZ MONIE: 58LOCATION: 2S TELEPHONE: [phone] MR#: [id number] [facility][id number] Mitral valve Value Reference Mitral E/A ratio, [...] ORDERAB LES * MAGNESIUM (02/05/2019 6:45 EDT) [facility] Magnesium 2.30 1.7 - 2.8 mg/dL 02/05/2019 7:46 EDT [facility] 02/05/2019 6:45 EDT 02/05/2019 6:52 EDT Nathan Michael MD CHEMISTRY & BLOOD GA S ORDERABLES [facility] * (ABNORMAL) LIPID PROFILE (INCLUDES CHOLESTEROL, TRIGLYCERIDES, HDL, LDL) (02/05/2019 6:45 EDT) [facility] Triglyceride 181 <150 mg/dL 02/05/2019 7:46 EDT [facility] Comment: Adult: Normal: ?<150 mg/dl ? Borderline High: 150-199 mg/dl ? High: ?200-499 mg/dl ? Very High: >el=903 Cholesterol 129 <200 mg/dL 02/05/2019 7:46 T [facility] Comment: Acceptable: ??<200 Borderline: ??200-239 High: ?> or = 240 Chol/HDL Ratio 4.1 0 - 4.5 02/05/2019 7:46 [facility] Comment: DESIRABLE RATIO IS LESS THAN 4.1 PATIENTS ARE CONSIDERED AT RISK: WOMEN RATIO >5 MEN RATIO >6 FASTING? - [facility] Unknown 9 7:54 [facility] HDL 31(L) 40 - 60 mg/dL 02/05/2019 7:46 [facility] Comment: ?? Reference Range Low: ? < 40 ??mg/dL Normal: ??40-60 mg/dL High: ?>= 60 mg/dL LDL CHOLESTEROL - [facility] 62 60 - 100 mg/dL 02/05/2019 7:46 [facility] Non HDL Cholesterol 98 mg/dl 02/05/2019 7:46 [facility] Comment: Desirable: ?Less than 130 Borderline High: ??130-159 High: ? 160-189 Very High: ?Greater than or equal to 190 02/05/2019 6:45 EDT 02/05/2019 6:52 EDT Nathan Michael MD CHEMISTRY & BLOOD GA S ORDERABLES [facility] * (ABNORMAL) COMPREHENSIVE METABOLIC PANEL (CMP) (02/05/2019 6:45 EDT) Albumin % 3.0(L) 3.4 - 4.9 g/dL 02/05/2019 7:46 EDT [facility] ALKALINE PHOSPHATASE - [facility] 53 38 - 126 U/L 02/05/2019 7:46 EDT [facility] BILIRUBIN TOTAL 0.9 0.2 - 1.3 mg/dL 02/05/2019 7:46 [facility] BUN - [facility] 14 10 - 26 mg/dL 02/05/2019 7:46 [facility] CALCIUM - [facility] 8.9 8.5 - 10.5 mg/dL 02/05/2019 7:46 [facility] Chloride 101 96 - 110 mmol/L 02/05/2019 7:46 [facility] CO2 Total 29 22 - 32 mEq/L 02/05/2019 7:46 [facility] CREATININE 0.65 0.52 - 1.04 mg/dL 02/05/2019 7:46 [facility] eGFR >60 02/05/2019 7:46 [facility] Comment: Chronic renal impairment is defined as GFR <60 Multiply result by 1.210 for patients. eGFR calculated using the IDMS-traceable MDRD Study Equation. ??(effective 05/12/2014) Anion Gap 5 0 - 18 02/05/2019 7:46 [facility] GLUCOSE - [facility] 136(H) 70 - 100 mg/dL 02/05/2019 7:46 [facility] Potassium 4.3 3.5 - 5.0 mEq/L 02/05/2019 7:46 [facility] Sodium 135(L) 136 - 145 mEq/L 02/05/2019 7:46 [facility] TOTAL PROTEIN - [facility] 5.3(L) 6.2 - 8.2 gm/dL 02/05/2019 7:46 [facility] SGOT/AST - [facility] 85(H) 14 - 36 U/L 02/05/2019 7:46 [facility] SGPT/ALT - [facility] 118(H) 9 - 52 U/L 9 7:46 [facility] 02/05/2019 6:45 EDT 02/05/2019 6:52 EDT Nathan Michael MD CHEMISTRY & BLOOD GA S ORDERABLES [facility] * (ABNORMAL) TROPONIN I (02/05/2019 6:45 EDT) Pathologist [facility] Troponin I (ng/mL) 0.038(HH) 0.000 - 0.034 ng/mL 02/05/2019 8:03 EDT [facility] Comment: Result called to EBONY FERNANDEZ/Sunny [...] S ORDERABLES Performing Organization Address [facility] Co de Phone Number [facility] * HEPATITIS C AB W REFLEX TO HCV RNA BY PCR (02/05/2019 6:45 EDT) Pathologist [facility] HEPATITIS C AB W/REFLEX - [facility] Negative 02/05/2019 8:14 EDT [facility] Comment:Expected Values: Neg ative. 02/05/2019 6:45 EDT 02/05/2019 6:52 EDT Nathan Michael MD CHEMISTRY & BLOOD GA S ORDERABLES Performing Organization Address [facility] Co de Phone Number [facility] * HEPATITIS B SURFACE ANTIGEN (02/05/2019 6:45 EDT) Pathologist [facility] Hep B Surface Ag Negative 02/05/2019 8:14 EDT [facility] Comment: Expected Values: ??Negative. The results of this assay can be falsely lowered due to the consumption of Biotin. 02/05/2019 6:45 EDT 02/05/2019 6:52 EDT Nathan Michael MD CHEMISTRY & BLOOD GA S ORDERABLES [facility] * COMPLETE BLOOD COUNT WITH DIFFERENTIAL (AUTO) (02/05/2019 6:45 EDT) ABSOLUTE NEUTROPHIL COUN - [facility] 6.5 2.2 - 8.85 10e3/uL 02/05/2019 7:21 EDT [facility] BASO # - [facility] 0.01 0.01 - 0.11 10e/uL 02/05/2019 7:21 [facility] BASO % - [facility] 0 0 - 2 % 02/05/2019 7:21 [facility] EOS # - [facility] 0.14 0.03 - 0.61 10e3/ul 02/05/2019 7:21 [facility] EOS % - [facility] 1 0 - 5 % 02/05/2019 7:21 [facility] GRAN % - [facility] 63.7 40 - 80 % 02/05/2019 7:21 [facility] HEMATOCRIT - [facility] 38.1 34.9 - 44.4 % 02/05/2019 7:21 [facility] HEMOGLOBIN - [facility] 12.9 11.6 - 15.2 g/dl 02/05/2019 7:21 [facility] IG# - [facility] 0.08 0 - 0.7 10e3/uL 02/05/2019 7:21 [facility] IG% - [facility] 0.8 0 - 0.9 % 02/05/2019 7:21 [facility] LYMPH # - [facility] 2.8 1.09 - 3.3 10e3/ul 02/05/2019 7:21 [facility] LYMPH% - [facility] 26.9 20 - 40 % 02/05/2019 7:21 [facility] MEAN CORPUSCULAR HGB - [facility] 29.5 26.7 - 33.3 pg 02/05/2019 7:21 [facility] MEAN CORPUSCULAR HGB CONC - [facility] 33.9 32.1 - 35.9 g/dL 02/05/2019 7:21 EDT [facility] MEAN CELL VOLUME - [facility] 87.2 81 - 98 fl 02/05/2019 7:21 EDT [facility] MONO # - [facility] 0.7 0.1 - 0.8 10e3/uL 02/05/2019 7:21 EDT [facility] MONO% - [facility] 7.1 0 - 12 % 02/05/2019 7:21 EDT [facility] PLATELET COUNT 314 141 - 377 10e3/ul [facility] - [facility] 4.37 3.86 - 5.04 10e3/ul 02/05/2019 7:21 EDT [facility] RED CELL DISTRI WIDTH - [facility] 14.4 <14.7 % [facility]2019 [facility] WHITE BLOOD COUNT - [facility] 10.3 4.0 - 12.4 10e3/ul 02/05/2019 7:21 EDT [facility] 02/05/2019 6:45 EDT 02/05/2019 6:52 EDT Nathan Michael MD HEMATOLOGY & PF4 ORD ERABLES [facility] * (ABNORMAL) POCT GLUCOSE (02/05/2019 0:02 EDT) Glucose, POC 121(H) 70 - 100 mg/dL 02/05/2019 0:43 EDT [facility] 02/05/2019 0:02 EDT 02/05/2019 0:43 EDT Nathan Michael MD POINT OF CARE TEST O RDERABLES [facility] documented in this encounter Visit Diagnoses Not on filedocumented in this encounter Care Teams Transformation Analyst Relationship Specialty Start Date End Date Brenda Canchola MD [address] [place] [address] [place] [address] PCP - General 08/03/10 documented as of this encounter
--- OUTSIDE RECORDS SUMMARY | 2024-04-15 15:46 | XMS_ITS | Encounter Summary ---
Author Organization [facility] Address [address] [place] [address] Care Team Providers Care Remedial Reading Teacher Name Role Phone Brenda Canchola MD Primary Care Provider [phone] Encounter Details Date Type Department Care Team (Late st Contact Info) Description 08/04/2010 Results Only Imaging [facility] Rheumatology - [facility], [address] [facility], [facility] [address] [place] [address] Symone Hayden MD [address] [facility], [facility] [address] [place] [address] Social History Tobacco Use Types [...] hips dated Aug 04, 2010. Clinical history: 715.94-UIGQRLKNORAIBF-C7. bilateral hand pain and swelling. Bilateral hip [...] hips dated Aug 04, 2010. Clinical history: 715.28-[id number]-V3. bilateral hand pain and swelling. Bilateral hip [...] on filedocumented in this encounter Care Teams Remedial Reading Teacher Relationship Specialty Start Date End Date Brenda Canchola MD [address] [place] [address] [place] [address] PCP - General 08/03/10 documented as of this encounter
--- OUTSIDE RECORDS SUMMARY | 2024-04-15 15:46 | XMS_ITS | Encounter Summary ---
Author Organization [facility] Address [address] [place] [address] Care Team Providers Care Rack Pusher Name Role Phone Brenda Canchola MD Primary Care Provider [phone] Encounter Details Date Type Department Care Team (Late st Contact Info) Description 08/17/[address] [facility] Pathology & Laboratory Medicine - [address] [id number] Outr Resulting Lab, Provider Social History Tobacco [...] Result (FLARES) Negative Negative 08/17/2020 23:57 EST [facility] FLU B RNA Result (FLBRES) Negative Negative 08/17/2020 23:57 EST [facility] RSV RNA Result (RSVRES) Negative Negative 08/17/2020 23:57 EST [facility] Performing Lab [facility] 08/17/2020 23:57 EST [facility] Swab ENTIRE NASOPHARYNX / Unknown 08/17/2020 12:27 EST 08/17/2020 17:13 EST Provider Outr Resulting Lab MICROBIOLOGY - GENERAL ORDERABLES Performing Organization Address City/State/[facility] Co de Phone Number [facility] [address] [place] [address] documented in this encounter Visit Diagnoses Not on filedocumented in this encounter Care Teams Rack Pusher Relationship Specialty Start Date End Date Brenda Canchola MD [address] [place] [address] [place] [address] PCP - General 08/03/10 documented as of this encounter
--- OUTSIDE RECORDS SUMMARY | 2024-04-15 15:46 | XMS_ITS | Encounter Summary ---
Author Organization [facility] Address [address] [place] [address] Care Team Providers Care Software Technician Name Role Phone Brenda Canchola MD Primary Care Provider [phone] Encounter Details Date Type Department Care Team (Late st Contact Info) Description 08/04/2010 15:13 EST - 08/04/2010 23:59 EST Hospital Encounter [address] [address] Symone Hayden MD [address] [place] [address], [address] [place] [phone] Osteoarthritis Discharge Disposition: Auto Discharge Social History [...] & BLOOD GA S ORDERABLES [facility] [address] [place] [address] * SED. RATE:WESTERGREN (08/04/2010 15:46 EST) Sed. Rate Westergren 14 0 - 30 mm/hr [facility] Blood specimen (specimen) 08/04/2010 15:46 EST 08/04/2010 15:49 EST Symone Hayden MD HEMATOLOGY & PF4 ORD ERABLES [facility] [address] [address] * VITAMIN D (25,OH) (08/04/2010 15:46 EST) 25OH Vitamin D Tot 46.6 ng/ml [facility] Comment: Reference Range: <10 ng/ml: Deficient 10-30 ng/ml: Insufficient 30-100 ng/ml: Sufficient >100 ng/ml: Toxic Blood specimen (specimen) 08/04/2010 15:46 EST 08/04/2010 15:49 EST Symone Hayden MD CHEMISTRY & BLOOD GA S ORDERABLES Performing Organization Address [facility] Co de Phone Number MAGDIEL [address] [address] * TSH (08/04/2010 15:46 EST) Pathologist [facility] TSH 1.67 0.35 - 5.00 uIU/ml VELOZ [facility] Blood specimen (specimen) 08/04/2010 15:46 EST 08/04/2010 15:49 EST Symone Hayden MD CHEMISTRY & BLOOD GA S ORDERABLES Performing Organization Address [facility] de Phone Number MAGDIEL [address] [address] documented in this encounter Visit Diagnoses Diagnosis Osteoarthritis Osteoarthrosis, unspecified whether generalized or localized, unspecified site documented in this encounter Care Teams Software Technician Relationship Specialty Start Date End Date Brenda Canchola MD [address] [place] [address] [place] [address] PCP - General 08/03/10 documented as of this encounter
--- OUTSIDE RECORDS SUMMARY | 2024-04-15 15:46 | XMS_ITS | Encounter Summary ---
Author Organization [facility] [place] [address] Care Team Providers Care Sap Technical Architect Name Role Phone Rodney Padilla MD Primary Care Provider Unav ailable Reason for Visit * Reason Onset Date Comments Medication Refill 04/08/2024 Encounter Details Date Type Department Care Team (Late st Contact Info) Description 04/08/2024 Refill Family Medicine at [facility] [address] [place] [address] Rodney Padilla MD Essential hypertension Social History Tobacco Use Types [...] 05/01/2024 11:20 AM EDT Appointment Mammography/[place] [phone] Rodney Padilla MD 05/01/2024 1:45 PM EDT Office [place] [phone] Juanpablo Hernandez MD [facility] [place] [address] 05/23/2024 2:45 PM EST Clinical Support Family Medicine at [address] [phone] Julia Low, [facility] 01/30/2025 1:30 PM EDT Laboratory Appointment Lab at [facility] Hematology Oncology [address] [place] [address] 01/30/2025 3:[address] [place] [address] Arturo Cordero MD [facility] DR [place] [address] 01/30/2025 4:15 PM EDT Office Visit Hematology [place] [phone] Arturo Cordero MD [facility] DR [place] [address] documented as of this encounter Visit Diagnoses Diagnosis Essential hypertension Unspecified essential hypertension documented in this encounter Care Teams Sap Technical Architect Relationship Specialty Start Date End Date Rodney Padilla MD PCP - General 07/18/22 04/09/24 documented as of this encounter
--- OUTSIDE RECORDS SUMMARY | 2024-04-15 15:46 | XMS_ITS | Encounter Summary ---
Author Organization [facility] Address [address] [place] [address] Care Team Providers Care Sprue Knocker Name Role Phone Brenda Canchola MD Primary Care Provider [phone] Encounter Details Date Type Department Care Team (Late st Contact Info) Description 03/10/2021 Lab Requisition [facility] Pathology & Laboratory Medicine - [facility] [address] [place] [address] Torito Coon MD [address] [place] [address] [place] [address] Encounter for other general examination [...] explore management options, if applicable. 03/17/2021 12:34 [facility] Final Diagnosis A. STOMACH, ANTRUM, BIOPSY: - No significant pathologic abnormality B. GASTROESOPHAGEAL JUNCTION, BIOPSY: - No significant pathologic abnormality C. COLON, ASCENDING, BIOPSY: - Tubular adenoma D. COLON, DESCENDING, BIOPSY: - No significant pathologic abnormality E. COLON, SIGMOID COLON BIOPSY: - Mildly hyperplastic benign colonic mucosa 03/17/2021 12:34 [facility] Attestation By the signature below, the attending physician certifies that they have 1) personally conducted a gross and/or microscopic examination of the described specimen(s), and/or personally interpreted the results of laboratory testing of the described specimen(s), and 2) personally rendered or confirmed the above diagnosis. 03/17/2021 12:34 [facility] at [address] Clinical History Constipation, bloating 03/17/2021 12:34 [facility] Gross Description A. Received in [...] RAEGAN ACOSTA(ASCP) 03/10/2021 15:50 03/17/2021 12:34 EDT [facility] Performing Lab [facility] 12:34 EDT [facility] Scanned Images 03/17/2021 12:34 EDT [facility] Tissue ENTIRE SIGMOID COLON / [...] EDT Torito Coon MD PATHOLOGY ORDERA BLES [facility] [address] [place] [address] documented in this encounter Visit Diagnoses Diagnosis Encounter for other general examination documented in this encounter Care Teams Sprue Knocker Relationship Specialty Start Date End Date Brenda Canchola MD [address] [place] [address] [place] [address] PCP - General 08/03/10 documented as of this encounter
--- OUTSIDE RECORDS SUMMARY | 2024-04-15 15:46 | XMS_ITS | Encounter Summary ---
Author Organization [facility] Address [address] [place] [address] Care Team Providers Care Young Adult Librarian Name Role Phone Brenda Canchola MD Primary Care Provider [phone] Encounter Details Date Type Department Care Team (Late st Contact Info) Description 02/06/2019 Historical Results Only [facility] - [facility] - Main [address] [address] Nathan Michael MD [address] [place] [phone] Social History Tobacco Use Types Packs/Day [...] 70 - 100 mg/dL 02/06/2019 12:09 EDT [facility] 02/06/2019 12:0 7 EDT 02/06/2019 12:09 EDT Nathan Michael MD POINT OF CARE TEST O RDERABLES Performing Organization Address [facility]/ZIP Co de Phone Number [facility] * (ABNORMAL) POCT GLUCOSE (02/06/2019 7:50 EDT) Glucose, POC 137(H) 70 - 100 mg/dL 02/06/2019 7:52 EDT [facility] 02/06/2019 7:50 EDT 02/06/2019 7:52 EDT Nathan Michael MD POINT OF CARE TEST O RDERABLES Performing Organization Address [facility]/ZIP Co de Phone Number [facility] * (ABNORMAL) ALT (02/06/2019 6:45 EDT) [facility] SGPT/ALT - [facility] 121(H) 9 - 52 U/L 02/06/2019 8:10 EDT [facility] 02/06/2019 6:45 EDT 02/06/2019 6:49 EDT Narrative [facility] - 02/06/2019 8:10 EDT AOT: 02/06/19 0743: AST/ALT Ruby Frederick MD CHEMISTRY & BLOOD GA S ORDERABLES Performing Organization Address [facility]/ZIP Co de Phone Number [facility] * (ABNORMAL) AST (02/06/2019 6:45 EDT) SGOT/AST - [facility] 63(H) 14 - 36 U/L 02/06/2019 8:10 EDT [facility] 02/06/2019 6:45 EDT 02/06/2019 6:49 EDT [facility] - 02/06/2019 8:10 EDT AOT: 02/06/19 0743: AST/ALT Ruby Frederick MD CHEMISTRY & BLOOD GA S ORDERABLES [facility] * MAGNESIUM (02/06/2019 6:45 EDT) Pathologist [facility] Magnesium 2.20 1.7 - 2.8 mg/dL [facility] 02/06/[facility] 6:45 EDT 02/06/2019 6:49 EDT [facility] - 02/06/2019 8:10 EDT AOT: 02/06/19 0743: AST/ALT Ruby Frederick MD CHEMISTRY & BLOOD GA S ORDERABLES [facility] * (ABNORMAL) BASIC METABOLIC PANEL (BMP) (02/06/2019 6:45 EDT) Pathologist [facility] 14 10 - 26 mg/dL 02/06/2019 7:24 [facility] CALCIUM [facility] 9.5 8.5 - 10.5 mg/dL 02/06/2019 7:24 [facility] Chloride 98 96 - 110 mmol/L 02/06/2019 7:24 [facility] CO2 Total 28 22 - 32 mEq/L 02/06/2019 7:24 [facility] CREATININE 0.68 0.52 - 1.04 mg/dL 02/06/2019 7:24 [facility] eGFR >60 02/06/2019 7:24 [facility] Comment: Chronic renal impairment is defined as GFR <60 Multiply result by 1.210 for patients. eGFR calculated using the IDMS-traceable MDRD Study Equation. ??(effective 05/12/2014) Anion Gap 7 0 - 18 02/06/2019 7:24 T [facility] GLUCOSE - [facility] 137(H) 70 - 100 mg/dL 02/06/2019 7:24 [facility] Potassium 4.3 3.5 - 5.0 mEq/L 02/06/2019 7:24 [facility] Sodium 133(L) 136 - 145 mEq/L 02/06/2019 7:24 [facility] 02/06/2019 6:45 EDT 02/06/2019 6:49 EDT [facility] - 02/06/2019 8:10 EDT AOT: 02/06/19 0743: AST/ALT Ruby Frederick MD CHEMISTRY & BLOOD GA S ORDERABLES [facility] * (ABNORMAL) COMPLETE BLOOD COUNT WITH DIFFERENTIAL (AUTO) (02/06/2019 6:45 EDT) ABSOLUTE NEUTROPHIL COUN - [facility] 7.7 2.2 - 8.85 10e3/uL 02/06/2019 7:14 [facility] BASO # - CV 0.02 0.01 - 0.11 10e/uL 02/06/2019 7:14 [facility] BASO % - MC 0 0 - 2 % 02/06/2019 7:14 [facility] EOS # - CVMC 0.10 0.03 - 0.61 10e3/ul 02/06/2019 7:14 [facility] EOS % - [facility] 1 0 - 5 % 02/06/2019 7:14 [facility] GRAN % - [facility] 71.6 40 - 80 % 02/06/2019 7:14 [facility] HEMATOCRIT - [facility] 40.4 34.9 - 44.4 % 02/06/2019 7:14 [facility] HEMOGLOBIN - [facility] 13.4 11.6 - 15.2 g/dl 02/06/2019 7:14 [facility] IG# - [facility] 0.06 0 - 0.7 10e3/uL 02/06/2019 7:14 [facility] IG% - [facility] 0.6 0 - 0.9 % 02/06/2019 7:14 [facility] LYMPH # - [facility] 2.0 1.09 - 3.3 10e3/ul 02/06/2019 7:14 [facility] LYMPH% - [facility] 18.3(L) 20 - 40 % 02/06/2019 7:14 [facility] MEAN CORPUSCULAR HGB - [facility] 29.1 26.7 - 33.3 pg 02/06/2019 7:14 [facility] MEAN CORPUSCULAR HGB CONC - [facility] 33.2 32.1 - 35.9 g/dL 02/06/2019 7:14 [facility] MEAN CELL VOLUME - [facility] 87.6 81 - 98 fl 02/06/2019 7:14 [facility] MONO # - [facility] 0.9(H) 0.1 - 0.8 10e3/uL 02/06/2019 7:14 [facility] MONO% - [facility] 8.4 0 - 12 % 02/06/2019 7:14 [facility] PLATELET COUNT 346 141 - 377 10e3/ul 02/06/2019 7:14 [facility] RED BLOOD COUNT - [facility] 4.61 3.86 - 5.04 10e3/ul 02/06/2019 7:14 [facility] RED CELL DISTRI WIDTH - [facility] 14.7 <14.7 % 02/06/2019 7:14 [facility] WHITE BLOOD COUNT - [facility] 10.8 4.0 - 12.4 10e3/ul 02/06/2019 7:14 [facility] 02/06/2019 6:45 EDT 02/06/2019 6:50 EDT Ruby Frederick MD HEMATOLOGY & PF4 ORD [facility] documented in this encounter Visit Diagnoses Not on filedocumented in this encounter Care Teams Young Adult Librarian Relationship Specialty Start Date End Date Brenda Canchola MD [address] [place] [address] [place] [address] PCP - General 08/03/10 documented as of this encounter
--- OUTSIDE RECORDS SUMMARY | 2024-04-15 15:46 | XMS_ITS | Encounter Summary ---
Author Organization [facility] Address [address] [place] [address] Care Team Providers Care Field Rep Name Role Phone Unavailable Primary Care Provider Unavailabl e Encounter Details Date Type Department Care Team (Late st Contact Info) Description 03/11/2009 Orders Only [facility] - [facility] ([facility] [place] [address] [place] [address] Liss Griffiths MD [address] [place] [address] [place] [address] Social History Tobacco Use Types Packs/Day Years [...] ? ALIZE MANJARREZ ? Accession #: ? [id number] ? : ? 1960 (Age: 48) ??F [...] Griffiths MD PATHOLOGY ORDERABLES Performing Organization Address City/State/[facility] Co de Phone Number [facility] [address] [place] [address] documented in this encounter Visit Diagnoses Not on filedocumented in this encounter
--- OUTSIDE RECORDS SUMMARY | 2024-04-15 15:46 | XMS_ITS | Encounter Summary ---
Author Organization [facility] Address [address] [place] [address] Care Team Providers Care Assistant Hvac Mechanic Name Role Phone Brenda Renee MD Primary Care Provider [phone] Encounter Details Date Type Department Care Team (Late st Contact Info) Description 09/09/2011 Results Only [facility] Laboratory Services - [facility] ([facility] [address] [place], [place] [phone] Brenda Renee MD [facility] [facility] [place] [address] Social History Tobacco Use Types [...] ? ALIZE MANJARREZ ? Accession #: ? [id number] ? : ? 1960 (Age: 50) ??F [...] MD PATHOLOGY ORDERABLES [facility] [address] [place] [address] documented in this encounter Visit Diagnoses Not on filedocumented in this encounter Care Teams Assistant Hvac Mechanic Relationship Specialty Start Date End Date Brenda Renee MD [address] [place] [address] [place] [address] PCP - General 08/03/10 documented as of this encounter
--- OUTSIDE RECORDS SUMMARY | 2024-04-15 15:46 | XMS_ITS | Encounter Summary ---
Author Organization [facility] Address [address] [place] [address] Care Team Providers Care Tugboat Dispatcher Name Role Phone Brenda Renee MD Primary Care Provider Encounter Details Date Type Department Care Team (Late st Contact Info) Description 11/02/[address] [facility] Laboratory Services - [facility] ([facility]) [address] [place], [place] [phone] Liss Griffiths MD [address] [place] [address] [place] [address] Social History Tobacco Use Types Packs/Day Years [...] ? ALIZE MANJARREZ ? Accession #: ? [id number] ? : ? 1960 (Age: 50) ??F [...] endocervical tissue. Comment: ? The prior biopsy ([id number]) was examined. ??([facility] Document reviewed and electronically signed by: [...] MD PATHOLOGY ORDERABLES [facility] [address] [place] [address] documented in this encounter Visit Diagnoses Not on filedocumented in this encounter Care Teams Tugboat Dispatcher Relationship Specialty Start Date End Date Brenda Renee MD [address] [place] [address] [place] [address] PCP - General 08/03/10 documented as of this encounter
--- OUTSIDE RECORDS SUMMARY | 2024-04-15 15:46 | XMS_ITS | Encounter Summary ---
Author Organization [facility] Address [address] [place] [address] Care Team Providers Care Steam Fitter Name Role Phone Brenda Canchola MD Primary Care Provider [phone] Encounter Details Date Type Department Care Team (Late st Contact Info) Description 01/02/2018 Results Only [facility] [phone] Nadir Hernandez, [employer] SERVICES COORDINATOR [address] [place] [address] Social History Tobacco Use Types Packs/Day Years [...] ? ALIZE MANJARREZ ? Accession #: ? [id number] ? : ? 1960 (Age: 57) ??F ?Collect Date: ? 01/02/2018 ? Location: ? [facility] ? Receive Date: ? 01/04/2018 ? Provider: NADIR HERNANDEZ SENIOR MOBILE DEVELOPER-BC Copy to: ? Final Report SPECIMEN ADEQUACY [...] types 16,18,31,33,35, 39,45,51,52,56,58, 59,66, and 68 by template reproduction technician mediated amplification. Comments Document reviewed and electronically signed by: ? System Interface ? Report date: 01/23/2018 By the signature above, the attending physician certifies that he/she has personally conducted a gross and/or microscopic examination of the described specimens and rendered or confirmed the above diagnosis. End of Report [facility] 01/02/2018 01/04/2018 Nadir Hernandez NP PATHOLOGY ORDERABLES [facility] [address] [place] [address] documented in this encounter Visit Diagnoses Not on filedocumented in this encounter Care Teams Steam Fitter Relationship Specialty Start Date End Date Brenda Canchola MD [address] [place] [address] [place] [address] PCP - General 08/03/10 documented as of this encounter
--- OUTSIDE RECORDS SUMMARY | 2024-04-15 15:46 | XMS_ITS | Encounter Summary ---
Author Organization [facility] Address [address] [place] [address] Care Team Providers Care Yarn Weight And Strength Tester Name Role Phone Unavailable Primary Care Provider Unavailabl e Encounter Details Date Type Department Care Team (Late st Contact Info) Description 09/15/2008 Before PRISM Converted Visit (Maple) [facility] [address] [place] [address] Puja Noland MD [address] [place] [address] Social History Tobacco Use Types [...] ? ALIZE MANJARREZ ? Accession #: ? [id number] ? : ? 1960 (Age: 47) ??F [...] low grade squamous intraepithelial lesion is favored. ??Audiovisual Librarian sections ?? were reviewed at the intradepartmental [...] Noland MD PATHOLOGY ORDERABLES [facility] [address] [place] [address] documented in this encounter Visit Diagnoses Not on filedocumented in this encounter
--- OUTSIDE RECORDS SUMMARY | 2024-04-15 15:46 | XMS_ITS | Encounter Summary ---
Author Organization [facility] Address [address] [place] [address] Care Team Providers Care Line Painting Machine Operator Name Role Phone Brenda Renee MD Primary Care Provider [phone] Encounter Details Date Type Department Care Team (Late st Contact Info) Description 12/18/2012 Results Only [facility] - [facility] [address] [place], [place] [phone] Brenda Renee MD [facility] [place] [address] Social History Tobacco Use Types [...] ? ALIZE MANJARREZ ? Accession #: ? [id number] ? : ? 1960 (Age: 52) ??F [...] and electronically signed by: ? Brenda Chang, [facility](ASCP) ? Report ??Date: 12/26/2012 13:52 HPV with Pap Test ? Date Ordered: ? 12/25/2012 ? Status: ?? Signed Out ?Date Complete: ? 12/28/2012 ? By: ??System Interface ? Date Reported: ? 12/28/2012 ? Interpretation RESULT: Negative for HPV. No E6 or E7 mRNA is detected from HPV types 16,18,31,33,35, 39,45,51,52,56,58, 59,66, and 68 by mounting inspector mediated amplification. Comments Document reviewed and electronically signed by: ? System Interface ? Report date: 12/28/2012 By the signature above, the attending physician certifies that he/she has personally conducted a gross and/or microscopic examination of the described specimens and rendered or confirmed the above diagnosis. End of Report [facility] 12/18/2012 12/19/2012 Brenda Renee MD PATHOLOGY ORDERABLES [facility] [address] [place] [address] documented in this encounter Visit Diagnoses Not on filedocumented in this encounter Care Teams Line Painting Machine Operator Relationship Specialty Start Date End Date Brenda Renee MD [address] [place] [address] [place] [address] PCP - General 08/03/10 documented as of this encounter
--- OUTSIDE RECORDS SUMMARY | 2024-04-15 15:47 | XMS_ITS | Encounter Summary ---
Author Organization [facility] [place] [address] Care Team Providers Care Pit And Auxiliaries Supervisor Name Role Phone Rodney Padilla MD Primary Care Provider Unav ailable Reason for Visit * Reason Comments Melanoma Melanoma of conjunct ana luisa OS Encounter Details Date Type Department Care Team (Late st Contact Info) Description 11/29/2023 2:45 PM EDT Office [place] [address] Juanpablo Hernandez MD [facility] [address] [place] [address] Malignant melanoma of conjunctiva, left; Type 2 [...] 05/01/2024 11:20 AM EDT Appointment Mammography/[place] [address] Rodney Padilla MD 05/01/2024 1:45 PM EDT Office [place] [address] Juanpablo Hernandez MD [facility] DR [place] [address] 05/23/2024 2:45 PM EST Clinical Support Family Medicine at [facility] [address] [place] [address] Julia Low, [facility] 01/30/2025 1:30 PM EDT Laboratory Appointment Lab at [facility] [place]ematology Oncology [address] [place] [address] 01/30/2025 3:[address] [place] [phone] Arturo Cordero MD [facility] DR HEMATOLOGY [place] [address] 01/30/2025 4:15 PM EDT Office Visit Hematology [place] [address] Arturo Cordero MD [facility] DR HEMATOLOGY [place] [address] documented as of this encounter Visit Diagnoses Diagnosis Malignant melanoma of conjunctiva, 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
--- OUTSIDE RECORDS SUMMARY | 2024-04-15 15:47 | XMS_ITS | Encounter Summary ---
Author Organization [facility] [place] [address] Care Team Providers Care Hat Finisher Name Role Phone Rodney Padilla MD Primary Care Provider Unav ailable Reason for Visit * Reason Comments Medication Refill Encounter Details Date Type Department Care Team (Late st Contact Info) Description 02/10/2024 Refill [address] Medicine at [facility] [address] [place] [phone] Rodney Padilla MD Mixed hyperlipidemia Social History Tobacco Use Types [...] AM EDT Appointment Mammography/DXA at [place] [phone] Rodney Padilla MD 05/01/2024 1:45 PM EDT Office Visit Ophthalmology at [place] [phone] Juanpablo Heranndez MD [facility] OPHTHALMOLOGY [place], [place] [phone] 05/23/2024 2:45 PM EST Clinical Support Family Medicine at [address] [phone] Julia Low [facility] 01/30/2025 1:30 PM EDT Laboratory Appointment Lab at [facility] Hematology Oncology [address] [place] [address] 01/30/2025 3:[address] [place] [address] Arturo Cordero MD [facility] DR [place] [address] 01/30/2025 4:15 PM EDT Office Visit Hematology [place] [address] Arturo Cordero MD [facility] [place] [address] documented as of this encounter Visit Diagnoses Diagnosis Mixed hyperlipidemia documented in this encounter Care Teams Hat Finisher Relationship Specialty Start Date End Date Rodney Padilla MD PCP - General 07/18/22 04/09/24 documented as of this encounter
--- OUTSIDE RECORDS SUMMARY | 2024-04-15 15:47 | XMS_ITS | Encounter Summary ---
Author Organization [facility] Address [address] [facility] [place] [address] Care Team Providers Care Software Architect Name Role Phone Rodney Padilla MD Primary Care Provider Unav ailable Encounter Details Date Type Department Care Team (Late st Contact Info) Description 02/28/2024 Notes Only [facility] [address] [place] [phone] Barbra Martínez C, RT Social History Tobacco [...] 05/01/2024 11:20 AM EDT Appointment Mammography/[place] [address] Rodney Padilla MD 05/01/2024 1:45 PM EDT Office [place] [address] Juanpablo Hernandez MD [facility] [place] [address] 05/23/2024 2:45 PM EST Clinical Support Family Medicine at [facility] [address] [place] [address] Julia Low, [facility] 01/30/2025 1:30 PM EDT Laboratory Appointment Lab at [facility] Hematology Oncology [address] [place] [address] 01/30/2025 3:[address] [place] [phone] Arturo Cordero MD [facility] DR HEMATOLOGY [place] [address] 01/30/2025 4:15 PM EDT Office Visit Hematology [place] [address] Arturo Cordero MD [facility] DR HEMATOLOGY [place] [address] documented as of this encounter Visit Diagnoses Not on filedocumented in this encounter Care Teams Software Architect Relationship Specialty Start Date End Date Rodney Padilla MD PCP - General 07/18/22 04/09/24 documented as of this encounter
--- OUTSIDE RECORDS SUMMARY | 2024-04-15 15:47 | XMS_ITS | Encounter Summary ---
Author Organization [facility] [place] [address] Care Team Providers Care Electrician Substation Name Role Phone Rodney Padilla MD Primary Care Provider Unav ailable Reason for Visit * Reason Comments Medication Refill Encounter Details Date Type Department Care Team (Late st Contact Info) Description 04/08/2024 Refill Family Medicine at [facility] [address] [place] [phone] Rodney Padilla MD Social History Tobacco Use Types Packs/Day Years [...] 12:52 PM EDT Spoke to Yashira at [facility] who states that the patient does have refills for the Plavix documented in this encounter Plan of Treatment Upcoming Encounters Date Type Department Care Team (Late st Contact Info) Description 05/01/2024 11:20 AM EDT Appointment Mammography/[place] [address] Rodney Padilla MD 05/01/2024 1:45 PM EDT Office [place] [address] Juanpablo Hernandez MD [facility] [place] [address] 05/23/2024 2:45 PM EST Clinical Support Family Medicine at [facility] [address] [place] [address] Julia Low, [facility] 01/30/2025 1:30 PM EDT Laboratory Appointment Lab at [facility] Hematology Oncology [address] [place] [address] 01/30/2025 3:[address] [place] [phone] Arturo Cordero MD [facility] HEMATOLOGY [place] [address] 01/30/2025 4:15 PM EDT Office Visit Hematology [place] [phone] Arturo Cordero MD [facility] HEMATOLOGY [place] [address] documented as of this encounter Visit Diagnoses Not on filedocumented in this encounter Care Teams Electrician Substation Relationship Specialty Start Date End Date Rodney Padilla MD PCP - General 07/18/22 04/09/24 documented as of this encounter
--- OUTSIDE RECORDS SUMMARY | 2024-04-15 15:47 | XMS_ITS | Encounter Summary ---
Author Organization [facility] [place] [address] Care Team Providers Care Director Of Online Merchandising Name Role Phone Rodney Padilla MD Primary Care Provider Unav ailable Encounter Details Date Type Department Care Team (Latest Contact Info) Description 12/20/2023 2:00 PM EDT Laboratory Appointment Lab at [facility] [address] [place] [phone] Type 2 diabetes mellitus without long-term current [...] 05/01/2024 11:20 AM EDT Appointment Mammography/[place] [phone] Rodney Padilla MD 05/01/2024 1:45 PM EDT Office [place] [address] Juanpablo Hernandez MD [facility] [address] 05/23/2024 2:45 PM EST Clinical Support Family Medicine at [address] [phone] Julia Low [facility] 01/30/2025 1:30 PM EDT Laboratory Appointment Lab at [facility] Hematology Oncology [address] [place] [address] 01/30/2025 3:[address] [place] [address] Arturo Cordero MD [facility] DR HEMAT[place] [address] 01/30/2025 4:15 PM EDT Office Visit Hematology and Oncology at [facility] [place] [address] Arturo Cordero MD [facility] DR HEMAT[place] [address] documented as of this encounter Procedures Procedure [...] [facility] Creatinine, Urine 75 mg/dL [facility] Urine 12/20/2023 2:28 PM EDT 12/20/2023 4:11 PM EDT Narrative Resulting Agency Comment Spec In Lab Rodney Padilla MD URINE ORDERABLES Performing Organization Address City/[facility]/ZIP Co de Phone Number [facility] [place] [address] * (ABNORMAL) Hemoglobin A1c (12/20/2023 2:14 PM [...] Mellitus, Diabetes Care 2013; 36: Suppl. 1, S67-15 Estimated Average Glucose 222 mg/dL [facility] Blood 12/20/2023 2:14 PM EDT 12/20/2023 4:37 PM EDT Narrative Resulting Agency Comment Spec In Lab Rodney Padilla MD CHEMISTRY ORDERABLE S Performing Organization Address City/[facility]/ZIP Co de Phone Number [facility] [place] [address] documented in this encounter Visit Diagnoses Diagnosis Type 2 diabetes mellitus without long-term current use of insulin documented in this encounter Care Teams Director Of Online Merchandising Relationship Specialty Start Date End Date Rodney Padilla MD PCP - General 07/18/22 04/09/24 documented as of this encounter
--- OUTSIDE RECORDS SUMMARY | 2024-04-15 15:47 | XMS_ITS | Encounter Summary ---
Author Organization [facility] [place] [address] Care Team Providers Care Air Quality Consultant Name Role Phone Rodney Padilla MD Primary Care Provider Unav ailable Reason for Visit * Reason Comments Medication Refill Encounter Details Date Type Department Care Team (Late st Contact Info) Description 03/22/2024 Refill Family Medicine at [facility] [address] [place] [phone] Rodney Padilla MD Social History Tobacco Use [...] Please direct patient to call their pharmacy, [facility] for a refill. documented in this encounter Plan of Treatment Upcoming Encounters Date Type Department Care Team (Late st Contact Info) Description 05/01/2024 11:20 AM EDT Appointment Mammography/[place] [address] Rodney Padilla MD 05/01/2024 1:45 PM EDT Office [place] [address] Juanpablo Hernandez MD [facility] [place] [address] 05/23/2024 2:45 PM EST Clinical Support Family Medicine at [facility] [address] [place] [address] Julia Low, [facility] 01/30/2025 1:30 PM EDT Laboratory Appointment Lab at [facility] Hematology Oncology [address] [place] [address] 01/30/2025 3:[address] [place] [phone] Arturo Cordero MD [facility] DR HEMATOLOGY [place] [address] 01/30/2025 4:15 PM EDT Office Visit Hematology [place] [address] Arturo Cordero MD [facility] HEMATOLOGY [place] [address] documented as of this encounter Visit Diagnoses Not on filedocumented in this encounter Care Teams Air Quality Consultant Relationship Specialty Start Date End Date Rodney Padilla MD PCP - General 07/18/22 04/09/24 documented as of this encounter
--- OUTSIDE RECORDS SUMMARY | 2024-04-15 15:47 | XMS_ITS | Encounter Summary ---
Author Organization [facility] [place] [address] Care Team Providers Care Pulping Machine Operator Name Role Phone Rodney Padilla MD Primary Care Provider Unav ailable Reason for Visit * Reason Comments Medication Refill Encounter Details Date Type Department Care Team (Late st Contact Info) Description 03/28/2024 Refill Family Medicine at [facility] [address] [place] [phone] Rodney Padilla MD Social History Tobacco Use [...] AM EDT Appointment Mammography/[place] [phone] Rodney Padilla MD 05/01/2024 1:45 PM EDT Office Visit Ophthalmology at [place] [phone] Juanpablo Hernandez MD [facility] [place] [address] 05/23/2024 2:45 PM EST Clinical Support Family Medicine at [facility] [address] [place] [phone] Julia Low, [facility] 01/30/2025 1:30 PM EDT Laboratory Appointment Lab at [facility] Hematology Oncology [address] [place] [address] 01/30/2025 3:[address] [place] [phone] Arturo Cordero MD [facility] DR [place] [address] 01/30/2025 4:15 PM EDT Office Visit [place]ology [place] [phone] Arturo Cordero MD [facility] DR [place] [address] documented as of this encounter Visit Diagnoses Not on filedocumented in this encounter Care Teams Pulping Machine Operator Relationship Specialty Start Date End Date Rodney Padilla MD PCP - General 07/18/22 04/09/24 documented as of this encounter
--- OUTSIDE RECORDS SUMMARY | 2024-04-15 15:47 | XMS_ITS | Encounter Summary ---
Author Organization [facility] Address [facility] [place] [address] Care Team Providers Care Auto Body Straightener Name Role Phone Rodney Padilla MD Primary Care Provider Unav ailable Reason for Visit * Reason Onset Date Comments Medication Refill 02/10/2024 Encounter Details Date Type Department Care Team (Late st Contact Info) Description 02/10/2024 Refill Family Medicine at [facility] [address] [place] [address] Luis E Narayan MD [facility] DR LIL[facility] [place] [address] Social History Tobacco Use Types Packs/Day Years [...] encounter Miscellaneous Notes * Telephone Encounter - Cruz FAWAD Morfin - 02/13/2024 11:00 AM EDT Prescription Renewal [...] 05/01/2024 11:20 AM EDT Appointment Mammography[place] [address] Rodney Padilla MD 05/01/2024 1:45 PM EDT Office [place] [phone] Juanpablo Hernandez MD [facility] [place] [address] 05/23/2024 2:45 PM EST Clinical Support Family Medicine at [address] [phone] Julia Low [facility] 01/30/2025 1:30 PM EDT Laboratory Appointment Lab at [facility] Hematology Oncology [address] [place] [id number] 01/30/2025 3:[address] [place] [address] Arturo Cordero MD [facility] DR [place] [address] 01/30/2025 4:15 PM EDT Office Visit [place]ology [place] [address] Arturo Cordero MD [facility] DR [place] [address] documented as of this encounter Visit Diagnoses Not on filedocumented in this encounter Care Teams Auto Body Straightener Relationship Specialty Start Date End Date Rodney Padilla MD PCP - General 07/18/22 04/09/24 documented as of this encounter
--- OUTSIDE RECORDS SUMMARY | 2024-04-15 15:47 | XMS_ITS | Encounter Summary ---
Author Organization [facility] Address [facility] [place] [address] Care Team Providers Care Can Filling And Closing Machine Tender Name Role Phone Rodney Padilla MD Primary [...] medical appointments or from getting medications? No 12/0 12/2020 In the past 12 months, has [...] AM EDT Appointment Mammography/DXA at [place] [phone] Rodney Padilla MD 05/01/2024 1:45 PM EDT Office [place] [phone] Juanpablo Hernandez MD [facility] [place] [address] 05/23/2024 2:45 PM EST Clinical Support Family Medicine at [address] [address] Julia Low, [facility] 01/30/2025 1:30 PM EDT Laboratory Appointment Lab at [facility] Hematology Oncology [address] [place] [address] 01/30/2025 3:[address] [place] [address] Arturo Cordero MD [facility] DR [place] [address] 01/30/2025 4:15 PM EDT Office Visit Hematology [place] [address] Arturo Cordero MD [facility] DR [place] [address] documented as of this encounter Visit Diagnoses Not on filedocumented in this encounter Care Teams Can Filling And Closing Machine Tender Relationship Specialty Start Date End Date Rodney Padilla MD PCP - General 07/18/22 04/09/24 documented as of this encounter
--- OUTSIDE RECORDS SUMMARY | 2024-04-15 15:47 | XMS_ITS | Encounter Summary ---
Author Organization [facility] [place] [address] Care Team Providers Care Pharmacist Technician Name Role Phone Rodney Padilla MD Primary Care Provider Unav ailable Reason for Visit * Reason Comments Follow-up Encounter Details Date Type Department Care Team (Late st Contact Info) Description 12/20/2023 1:30 PM EDT Office Visit Family Medicine at [facility] [address] [place] [address] Rodney Padilla MD Type 2 diabetes mellitus [...] or during use. 100 each 3 fluticasone xxrhpto-xugglfkhmbhc-gtapwdijzt (Trelegy Ellipta) 200-62.5-25 mcg Inhale 1 puff into the lungs daily. Rinse mouth after use 1 each 11 fluticasone propionate (Flonase) 50 mcg/actuation [place], Suspension SPRAY 1 SPRAY IN EACH NOSTRIL TWO TIMES A DAY 48 mL 3 lamoTRIgine (LaMICtal) 150 mg tablet Take 150 mg by mouth Daily at Noon. simvastatin (Zocor) 10 mg tablet TAKE ONE TABLET BY MOUTH EVERY DAY 90 tablet 1 Blood-Glucose Meter,Continuous (Dexcom G7 Manager Of Applications Development) Misc 1 Device by [facility]Non- Drug; Combo Route) route continuous. Blood-Glucose Sensor (Dexcom G7 Sensor) Device 1 Device by [facility]Non-Drug; Combo Route) route every10 days. 3 each 11 Lantus Solostar U-100 Insulin 100 unit/mL (3 mL) pen Inject 18 Units subcutaneously nightly. Inject2-20 units based on BG Indications: type 2 diabetes mellitus inhalational spacing device (Hesham Aerosol [place] Enhancer) Spacer 1 each by Misc.(Non-Drug; Combo [...] patient/family/caregiver Referring and communicating with other health childcare center director Documenting clinical information in the electronic or other health record Independently interpreting results Care coordination documented in this encounter Plan of Treatment Upcoming Encounters Date Type Department Care Team (Late st Contact Info) Description 05/01/2024 11:20 AM EDT Appointment Mammography/[place] [address] Rodney Padilla MD 05/01/2024 1:45 PM EDT Office [place] [address] Juanpablo Hernandez MD [facility] [place] [address] 05/23/2024 2:45 PM EST Clinical Support Family Medicine at [facility] [address] [place] [phone] Julia Low, [facility] 01/30/2025 1:30 PM EDT Laboratory Appointment Lab at [facility] Hematology Oncology [address] [place] [address] 01/30/2025 3:[address] [place] [address] Arturo Cordero MD [facility] DR [place] [address] 01/30/2025 4:15 PM EDT Office Visit Hematology [place] [address] Arturo Cordero MD [facility] DR [place] [address] documented as of this encounter Results * U Albumin/Cre Ratio (12/20/2023 2:28 PM EDT) Albumin / Creatinin Ratio, Urine Not Calculated 0 - 29 mcg/mg Cr [facility] Comment: Reference Ranges: <30 mcg/mg: [...] 2, 357? 362 Albumin, Urine <3.0 mg/L [facility] Creatinine, Urine 75 mg/dL [facility] Urine 12/20/2023 2:28 PM EDT 12/20/2023 4:11 PM EDT Narrative Resulting Agency Comment Spec In Lab Rodney Padilla MD URINE ORDERABLES [facility] [place] [address] * (ABNORMAL) Hemoglobin A1c (12/20/2023 2:14 PM EDT) Hemoglobin A1c 9.4(H) 4.3 - 5.6 % [facility] Comment: Reference Range: 4.3 - [...] Mellitus, Diabetes Care 2013; 36: Suppl. 1, S67-06 Estimated Average Glucose 222 mg/dL [facility] Blood 12/20/2023 2:14 PM EDT 12/20/2023 4:37 PM EDT Narrative Resulting Agency Comment Spec In Lab Rodney Padilla MD CHEMISTRY ORDERABLE S [facility] [place] [address] documented in this encounter Visit Diagnoses Diagnosis Type 2 diabetes mellitus without long-term current use of insulin Essential hypertension Unspecified essential hypertension TITO (obstructive sleep apnea) Obstructive sleep apnea (adult) (pediatric) Interstitial lung disease Postinflammatory pulmonary fibrosis documented in this encounter Care Teams Pharmacist Technician Relationship Specialty Start Date End Date Rodney Padilla MD PCP - General 07/18/22 04/09/24 documented as of this encounter
--- OUTSIDE RECORDS SUMMARY | 2024-04-15 15:47 | XMS_ITS | Encounter Summary ---
Author Organization [facility] [place] [address] Care Team Providers Care Scenario Writer Name Role Phone Rodney Padilla MD Primary Care Provider Unav ailable Reason for Visit * Reason Comments Diabetes Encounter Details Date Type Department Care Team (Late st Contact Info) Description 01/01/2024 11:00 AM EDT TH Visit (TeleHealth) Family Medicine at [facility] [address] [place] [address] Julia Low, [facility] Type 2 [...] Progress Notes * Julia Low RP - 01/01/2024 11:00 AM EDT Images from [...] any of the following conditions: Yes [x] NV/Stroke/CAD [] Retinopathy [] CHF [x] Neuropathy [] [...] performed regularly using Dexcom CGM G7 Uses [employer] testing supplies Interested in Dexcom G7, report approved by insurance. Received Dexcom G7 CGM through [employer]. Has not set up Prior Averages: 08/26/21 09/09/21 09/24/21 11/14/21 11/03/22 12/01/22 01/03/23 08/18/23 10/26/23 Daily Avg 157 168 131 138 175 153 176 211 152 eA1c 8.09950 8.46 7.20 7.44 8.7 7.95 8.75 9.96 [...] or during use. 100 each 3 fluticasone xggxvpc-icdmnaznsuwn-hrjeqbznfr (Trelegy Ellipta) 200-62.5-25 mcg Inhale 1 puff into the lungs daily. Rinse mouth after use 1 each 11 fluticasone propionate (Flonase) 50 mcg/actuation [place], Suspension SPRAY 1 SPRAY IN EACH NOSTRIL TWO TIMES A DAY 48 mL 3 lamoTRIgine (LaMICtal) 150 mg tablet Take 150 mg by mouth Daily at Noon. simvastatin (Zocor) 10 mg tablet TAKE ONE TABLET BY MOUTH EVERY DAY 90 tablet 1 Blood-Glucose Meter,Continuous (Dexcom G7 Drying Machine Tender) Misc 1 Device by [facility].(Non- Drug; Combo Route) route continuous. Blood-Glucose Sensor (Dexcom G7 Sensor) Device 1 Device by Misc.(Non-Drug; Combo Route) route every10 days. 3 each 11 Lantus Solostar U-100 Insulin 100 unit/mL (3 mL) pen Inject 18 Units subcutaneously nightly. Inject2-20 units based on BG Indications: type 2 diabetes mellitus inhalational spacing device (Hesham Aerosol [place] Enhancer) Spacer 1 each by Misc.(Non-Drug; Combo [...] 150/78 BMI Readings from Last 3 Encounters: 06/12/24 42.40 kg/m?? 04/16/24 42.37 kg/m?? 09/19/23 42.68 kg/m?? Wt Readings [...] were made at the appointment and that [facility] providing recommendations for provider review and follow up. Julia Low, [facility] 01/01/24 Total time spent: 45 minutes documented in this encounter Plan of Treatment Upcoming Encounters Date Type Department Care Team (Late st Contact Info) Description 05/01/2024 11:20 AM EDT Appointment Mammography/[place] [address] Rodney Padilla MD 05/01/2024 1:45 PM EDT Office Visit Ophthalmology at [place] [phone] Juanpablo Hernandez MD [facility] [place] [address] 05/23/2024 2:45 PM EST Clinical Support Family Medicine at [address] [phone] Julia Low RPH 01/30/2025 1:30 PM EDT Laboratory Appointment Lab at [facility] Hematology Oncology [address] [place] [address] 01/30/2025 3:[address] [place] [address] Arturo Cordero MD [facility] DR HEMATOLOGY [place] [address] 01/30/2025 4:15 PM EDT Office Visit Hematology [place] [address] Arturo Cordero MD [facility] DR HEMATOLOGY [place] [address] documented as of this encounter Visit Diagnoses Diagnosis Type 2 diabetes mellitus without long-term current use of insulin documented in this encounter Care Teams Scenario Writer Relationship Specialty Start Date End Date Rodney Padilla MD PCP - General 07/18/22 04/09/24 documented as of this encounter
--- OUTSIDE RECORDS SUMMARY | 2024-04-15 15:47 | XMS_ITS | Encounter Summary ---
Author Organization [facility] Address [facility] [place] [address] Care Team Providers Care Physician Pediatrician Name Role Phone Rodney Padilla MD [...] 05/01/2024 11:20 AM EDT Appointment Mammography/DXA at [place] [phone] Rodney Padilla MD 05/01/2024 1:45 PM EDT Office [place] [phone] Juanpablo Hernandez MD [facility] [place] [address] 05/23/2024 2:45 PM EST Clinical Support Family Medicine at [address] [address] Julia Low, [facility] 01/30/2025 1:30 PM EDT Laboratory Appointment Lab at [facility] Hematology Oncology [address] [place] [address] 01/30/2025 3:[address] [place] [address] Arturo Cordero MD [facility] DR HEMATOLOG[place] [address] 01/30/2025 4:15 PM EDT Office Visit Hematology [place] [address] Arturo Cordero MD [facility] DR HEMATOLOGY [place] [address] documented as of this encounter Visit Diagnoses Not on filedocumented in this encounter Care Teams Physician Pediatrician Relationship Specialty Start Date End Date Rodney Padilla MD PCP - General 07/18/22 04/09/24 documented as of this encounter
--- OUTSIDE RECORDS SUMMARY | 2024-04-15 15:47 | XMS_ITS | Encounter Summary ---
Author Organization [facility] [place] [address] Care Team Providers Care Shade Matcher Name Role Phone Rodney Padilla MD Primary Care Provider Unav ailable Reason for Visit * Reason Onset Date Comments Prior Authorization 12/07/2023 [employer] 0.025% cream Encounter Details Date Type Department Care Team (Late st Contact Info) Description 12/07/2023 Telephone Dermatology at [facility] [address] [place] [address] Erika Caraballo LNA Prior Authorization ([employer] 0.025% [...] cosmetic Pas, insurance will not cover. Archived [facility] Anderson: [id number] - Rx #: [id number] documented in this encounter Plan of Treatment Upcoming Encounters Date Type Department Care Team (Late st Contact Info) Description 05/01/2024 11:20 AM EDT Appointment Mammography/[place] [address] Rodney Padilla MD 05/01/2024 1:45 PM EDT Office [place] [phone] Juanpablo Hernandez MD [facility] [place] [address] 05/23/2024 2:45 PM EST Clinical Support Family Medicine at [facility] [address] [place] [address] Julia Low, [facility] 01/30/2025 1:30 PM EDT Laboratory Appointment Lab at [facility] Hematology Oncology [address] [place] [address] 01/30/2025 3:[address] [place] [phone] Arturo Cordero MD [facility] DR [place] [address] 01/30/2025 4:15 PM EDT Office Visit Hematology [place] [phone] Arturo Cordero MD [facility] DR [place] [address] documented as of this encounter Visit Diagnoses Not on filedocumented in this encounter Care Teams Shade Matcher Relationship Specialty Start Date End Date Rodney Padilla MD PCP - General 07/18/22 04/09/24 documented as of this encounter
--- OUTSIDE RECORDS SUMMARY | 2024-04-15 15:47 | XMS_ITS | Encounter Summary ---
Author Organization [facility] Address One [facility] [place] [address] Care Team Providers Care Plexiglas Former Name Role Phone Rodney Padilla MD Primary Care Provider Unav ailable Encounter Details Date Type Department Care Team (Late st Contact Info) Description 03/21/2024 Telephone Family Medicine at [address] [place] [phone] [facility] Social History Tobacco Use Types Packs/Day Years [...] 05/01/2024 11:20 AM EDT Appointment Mammography/[place] [address] Rodney Padilla MD 05/01/2024 1:45 PM EDT Office [place] [address] Juanpablo Hernandez MD [facility] [place] [address] 05/23/2024 2:45 PM EST Clinical Support Family Medicine at [facility] [address] [place] [address] Julia Low, [facility] 01/30/2025 1:30 PM EDT Laboratory Appointment Lab at [facility] Hematology Oncology [address] [place] [address] 01/30/2025 3:[address] [place] [address] Arturo Cordero MD [facility] HEMATOLOGY [place] [address] 01/30/2025 4:15 PM EDT Office Visit Hematology [place] [address] Arturo Cordero MD [facility] HEMATOLOGY [place] [address] documented as of this encounter Visit Diagnoses Not on filedocumented in this encounter Care Teams Plexiglas Former Relationship Specialty Start Date End Date Rodney Padilla MD PCP - General 07/18/22 04/09/24 documented as of this encounter
--- OUTSIDE RECORDS SUMMARY | 2024-04-15 15:47 | XMS_ITS | Encounter Summary ---
[place] [address] Care Team Providers Care Alligator Trapper Name Role Phone Rodney Padilla MD Primary Care Provider Unav ailable Reason for Referral * Diagnostic Test (Routine) - New Request Specialty Diagnoses / Procedures Referred By Gonzalez kumari Referred To Contact Radiology Diagnoses Irritable bowel syndrome, unspecified type Procedures NM Gastric Emptying Scan Rodney Padilla MD [address] [place] [address] [place] [address] Referral ID Status Reason Start Date Expiration Date Visits Requested Visits Authorized [id number] New Request Specialty Service Requested 03/20/2024 09/17/2025 1 1 Reason for Visit * Reason Comments Other Stomach and bowel tr ouble- not improving and ongoing, been to ER recently (flare up) Encounter Details Date Type Department Care Team (Late st Contact Info) Description 03/20/2024 3:30 PM EDT Office Visit Family Medicine at [facility] [address] [place] [address] Rodney Padilla MD Irritable bowel syndrome, unspecified [...] TOPICALLY ONCE DAILY 100 each 3 fluticasone jtfkttu-wbuwzqhukkpa-hpjiurrpjx (Trelegy Ellipta) 200-62.5-25 mcg Inhale 1 puff into the lungs daily. Rinse mouth after use 1 each 11 fluticasone propionate (Flonase) 50 mcg/actuation [place], Suspension SPRAY 1 SPRAY IN EACH NOSTRIL TWO TIMES A DAY 48 mL 3 lamoTRIgine (LaMICtal) 150 mg tablet Take 150 mg by mouth Daily at Noon. Blood-Glucose Meter,Continuous (Dexcom G7 Sugar Sampler) Misc 1 Device by [facility]Non- Drug; Combo Route) route continuous. Blood-Glucose Sensor (Dexcom G7 Sensor) Device 1 Device by [facility]Non-Drug; Combo Route) route every10 days. 3 each 11 inhalational spacing device (Hesham Aerosol [place] Enhancer) Spacer 1 each by [facility]Non-Drug; Combo Route) route as needed. 1 each [...] mouth daily. Miscellaneous Medical Supply Misc by [facility]Non-Drug; Combo Route) route. Lantus Solostar U-100 Insulin [...] patient/family/caregiver Referring and communicating with other health infant childcare provider Documenting clinical information in the electronic or other health record Independently interpreting results Care coordination documented in this encounter Plan of Treatment Upcoming Encounters Date Type Department Care Team (Late st Contact Info) Description 05/01/2024 11:20 AM EDT Appointment Mammography/[place] [phone] Rodney Padilla MD 05/01/2024 1:45 PM EDT Office [place] [phone] Juanpablo Hernandez MD [facility] [place] [address] 05/23/2024 2:45 PM [facility] Clinical Support Family Medicine at [address] [address] Julia Low, [facility] 01/30/2025 1:30 PM EDT Laboratory Appointment Lab at [facility] Hematology Oncology [address] [place] [address] 01/30/2025 3:[address] [place] [phone] Arturo Cordero MD [facility] HEMATOLOGY [place] [address] 01/30/2025 4:15 PM EDT Office Visit Hematology [place] [phone] Arturo Cordero MD [facility] HEMATOLOGY AND ONCOLOGY [place], [place] [phone] Scheduled Orders Name Type Priority Associated Diagnoses Orde r Schedule NM Gastric Emptying Scan Imaging Routine Irritable bowel syndrome, unspecified type Expected: 03/20/2024, Expires: 03/20/2025 documented as of this encounter Visit Diagnoses Diagnosis Irritable bowel syndrome, unspecified type- Primary Type 2 diabetes mellitus without long-term current use of insulin documented in this encounter Care Teams Alligator Trapper Relationship Specialty Start Date End Date Rodney Padilla MD PCP - General 07/18/22 04/09/24 documented as of this encounter
--- OUTSIDE RECORDS SUMMARY | 2024-04-15 15:47 | XMS_ITS | Encounter Summary ---
Author Organization [facility] [address] Care Team Providers Care Shop Steward Name Role Phone Rodney Padilla MD Primary Care Provider Unav ailable Reason for Visit * Reason Onset Date Comments Medication Refill 02/10/2024 Encounter Details Date Type Department Care Team (Late st Contact Info) Description 02/10/2024 Refill Family Medicine at [facility] [address] [place] [address] Rodney Padilla MD Mixed hyperlipidemia Social History [...] 05/01/2024 11:20 AM EDT Appointment Mammography/[place] [phone] Rodney Padilla MD 05/01/2024 1:45 PM EDT Office [place] [phone] Juanpablo Hernandez MD [facility] [place] [address] 05/23/2024 2:45 PM EST Clinical Support Family Medicine at [place] [address] [place] [address] Julia Low [facility] 01/30/2025 1:30 PM EDT Laboratory Appointment Lab at [facility] Hematology Oncology [address] [place] [address] 01/30/2025 3:[address] [place] [phone] Arturo Cordero MD [facility] DR [place] [address] 01/30/2025 4:15 PM EDT Office Visit [place]ematology [place] [address] Arturo Cordero MD [facility] DR [place] [address] documented as of this encounter Visit Diagnoses Diagnosis Mixed hyperlipidemia documented in this encounter Care Teams Shop Steward Relationship Specialty Start Date End Date Rodney Padilla MD PCP - General 07/18/22 04/09/24 documented as of this encounter
--- OUTSIDE RECORDS SUMMARY | 2024-04-15 15:47 | XMS_ITS | Encounter Summary ---
Author Organization [facility] Address [facility] [place] [address] Care Team Providers Care Television Analyzer Name Role Phone Rodney Padilla MD Primary [...] 05/01/2024 11:20 AM EDT Appointment Mammography/DXA at [place] [phone] Rodney Padilla MD 05/01/2024 1:45 PM EDT Office [place] [phone] Juanpablo Hernandez MD [facility] [place] [place] [address] 05/23/2024 2:45 PM EST Clinical Support Family Medicine at [address] [address] Julia Low, [facility] 01/30/2025 1:30 PM EDT Laboratory Appointment Lab at [facility] Hematology Oncology [address] [place] [address] 01/30/2025 3:[address] [place] [address] Arturo Cordero MD [facility] [address] [place] [address] 01/30/2025 4:15 PM EDT Office Visit Hematology [place] [address] Arturo Cordero MD [facility] [address] [place] [address] documented as of this encounter Visit Diagnoses Not on filedocumented in this encounter Care Teams Television Analyzer Relationship Specialty Start Date End Date Rodney Padilla MD PCP - General 07/18/22 04/09/24 documented as of this encounter
--- OUTSIDE RECORDS SUMMARY | 2024-04-15 15:47 | XMS_ITS | Encounter Summary ---
Author Organization [facility] [place] [address] Care Team Providers Care Mortgage Specialist Name Role Phone Rodney Padilla MD Primary Care Provider Unav ailable Reason for Visit * Reason Comments Diabetes Encounter Details Date Type Department Care Team (Late st Contact Info) Description 03/20/2024 2:00 PM EDT TH Visit (TeleHealth) Family Medicine at [facility] [address] [place] [phone] Julia Low, [facility] Type 2 diabetes [...] conditions: Yes peripheral neuropathy and cardiovascular disease (OK/CAD) [] History of diabetes-related amputations [] CHF [...] CGM G7 Receives Dexcom G7 CGM through [employer]. Prior Averages: 08/26/21 09/09/21 09/24/21 11/14/21 11/03/22 12/01/22 01/03/23 08/18/23 10/26/23 Daily Avg 157 168 131 138 175 153 176 211 152 eA1c 8.31295 8.46 7.20 7.44 8.7 7.95 8.75 9.96 7.92 Acute complications of diabetes: hypoglycemia pt reported BG 70 mg/dL following initiation of mounjaro leading to discontinuation oflantus Have you had a low blood sugar reaction? If yes, how did you feel? Yes, notified by [employer] alert ; treated with 20 oz coca-cola [...] TOPICALLY ONCE DAILY 100 each 3 fluticasone mnlhqnn-uwxnojefrsnv-ivudpqjbqu (Trelegy Ellipta) 200-62.5-25 mcg Inhale 1 puff into the lungs daily. Rinse mouth after use 1 each 11 fluticasone propionate (Flonase) 50 mcg/actuation [place], Suspension SPRAY 1 SPRAY IN EACH NOSTRIL TWO TIMES A DAY 48 mL 3 lamoTRIgine (LaMICtal) 150 mg tablet Take 150 mg by mouth Daily at Noon. Blood-Glucose Meter,Continuous (Dexcom G7 Software Recruiter) Misc 1 Device by [facility]Non- Drug; Combo Route) route continuous. Blood-Glucose Sensor (Dexcom G7 Sensor) Device 1 Device by [facility]Non-Drug; Combo Route) route every10 days. 3 each [...] (before meals and nightly). Miscellaneous Medical Supply [facility]Non-Drug; Combo Route) route. docusate sodium (Colace) 100 [...] each 3 inhalational spacing device (Hesham Aerosol [place] Enhancer) Spacer 1 each by Misc.(Non-Drug; Combo [...] this differs from GMI of 6.6 from [employer] G7. Possible contributors to deviation between laboratory A1c and CGM GMI include family stressors and stomach pain [facility] out [facility] error [...] The 10-year ASCVD risk score (Jose Alberto DK, et al., 2019) is: 24.5% Values used [...] 05/01/2024 11:20 AM EDT Appointment Mammography/[place] [phone] Rodney Padilla MD 05/01/2024 1:45 PM EDT Office [place] [phone] Juanpablo Hernandez MD [facility] [place] [address] 05/23/2024 2:45 PM EST Clinical Support Family Medicine at [address] [place] [phone] Julia Low, [facility] 01/30/2025 1:30 PM EDT Laboratory Appointment Lab at [facility] Hematology Oncology [address] [place] [address] 01/30/2025 3:[address] [place] [phone] Arturo Cordero MD [facility] [address] [place] [address] 01/30/2025 4:15 PM EDT Office Visit Hematology [place] [address] Arturo Cordero MD [facility] [address] [place] [address] documented as of this encounter Visit Diagnoses Diagnosis Type 2 diabetes mellitus without long-term current use of insulin- Primary documented in this encounter Care Teams Mortgage Specialist Relationship Specialty Start Date End Date Rodney Padilla MD PCP - General 07/18/22 04/09/24 documented as of this encounter
--- OUTSIDE RECORDS SUMMARY | 2024-04-15 15:47 | XMS_ITS | Encounter Summary ---
Author Organization [facility] Address [facility] [place] [address] Care Team Providers Care Public Health Staff Nurse Name Role Phone Rodney Padilla MD [...] 05/01/2024 11:20 AM EDT Appointment Mammography/DXA at [place] [phone] Rodney Padilla MD 05/01/2024 1:45 PM EDT Office [place] [phone] Juanpablo Hernandez MD [facility] [place] [address] 05/23/2024 2:45 PM EST Clinical Support Family Medicine at [address] [address] Julia Low, [facility] 01/30/2025 1:30 PM EDT Laboratory Appointment Lab at [facility] Hematology Oncology [address] [place] [address] 01/30/2025 3:[address] [place] [address] Arturo Cordero MD [facility] DR [place] [address] 01/30/2025 4:15 PM EDT Office Visit [place]ology [place] [address] Arturo Cordero MD [facility] [address] [place] [address] documented as of this encounter Visit Diagnoses Not on filedocumented in this encounter Care Teams Public Health Staff Nurse Relationship Specialty Start Date End Date Rodney Padilla MD PCP - General 07/18/22 04/09/24 documented as of this encounter
--- OUTSIDE RECORDS SUMMARY | 2024-04-15 15:47 | XMS_ITS | Encounter Summary ---
Author Organization [facility] Address [facility] [place] [address] Care Team Providers Care Supervisor Asbestos Textile Name Role Phone Rodney Padilla MD Primary [...] 05/01/2024 11:20 AM EDT Appointment Mammography/DXA at [place] [phone] Rodney Padilla MD 05/01/2024 1:45 PM EDT [place] [phone] Juanpablo Hernandez MD [facility] [place] [address] 05/23/2024 2:45 PM EST Clinical Support Family Medicine at [address] [address] Julia Low, [facility] 01/30/2025 1:30 PM EDT Laboratory Appointment Lab at [facility] Hematology Oncology [address] [place] [address] 01/30/2025 3:[address] [place] [address] Arturo Cordero MD [facility] DR HEMATOLOGY [place] [address] 01/30/2025 4:15 PM EDT Office Visit [place] [address] Arturo Cordero MD [facility] DR HEMATOLOGY [place] [address] documented as of this encounter Visit Diagnoses Not on filedocumented in this encounter Care Teams Supervisor Asbestos Textile Relationship Specialty Start Date End Date Rodney Padilla MD PCP - General 07/18/22 04/09/24 documented as of this encounter
--- OUTSIDE RECORDS SUMMARY | 2024-04-15 15:47 | XMS_ITS | Encounter Summary ---
Author Organization [place] [address] Care Team Providers Care Solder Sprayer Name Role Phone Rodney Padilla MD Primary Care Provider Unav ailable Encounter Details Date Type Department Care Team (Latest Contact Info) Description 02/01/2024 8:12 AM EDT - 02/01/2024 11:59 PM EDT Hospital Encounter Hematology [place] [address] Malignant melanoma of conjunctiva, left Discharge Disposition: [...] 11 10/24/2023 fluticasone propionate (Flonase) 50 mcg/actuation [place], Suspension SPRAY 1 SPRAY IN EACH NOSTRIL TWO TIMES A DAY 48 mL 3 09/28/2023 lamoTRIgine (LaMICtal) 150 mg tablet Take 150 mg by mouth Daily at Noon. 08/17/2023 Blood-Glucose Meter,Continuous (Dexcom G7 Dental Practitioner) MiscIndications:Type 2 diabetes mellitus with hyperglycemia, without long-term current use of insulin 1 Device by [facility]Non-Drug; Combo Route) route continuous. 08/18/2023 Blood-Glucose Sensor (Dexcom G7 Sensor) DeviceIndications:Typ e 2 diabetes mellitus with hyperglycemia, without long-term current use of insulin 1 Device by [facility].(Non-Drug; Combo Route) route every 10 days. 3 each 11 08/18/2023 inhalational spacing device (Hesham Aerosol [place] Enhancer) SpacerIndications:Chr onic obstructive pulmonary disease, unspecified COPD type 1 each by [facility].(Non-Drug; Combo Route) route as needed. 1 each [...] 05/01/2024 11:20 AM EDT Appointment Mammography/[place] [phone] Rodney Padilla MD 05/01/2024 1:45 PM EDT Office [place] [phone] Juanpablo Hernandez MD [facility] [address] 05/23/2024 2:45 PM [facility] Clinical Support Family Medicine at [facility] [address] [place] [phone] Julia Low, [facility] 01/30/2025 1:30 PM EDT Laboratory Appointment Lab at [facility] Hematology Oncology [address] [place] [id number] 01/30/2025 3:[address] [place] [phone] Arturo Cordero MD [facility] [place] [address] 01/30/2025 4:15 PM EDT Office Visit Hematology [place] [phone] Arturo Cordero MD [facility] [place] [address] documented as of this encounter Procedures Procedure [...] 8:19 AM EDT) Neutrophil % 65.9 % [facility] Neutrophil Absolute 5.25 1.70 - 6.10 x10(3)/[facility] LAB[facility] Lymph % 24.4 % [facility] Lymphocytes Abs 1.9 0.9 - 3.2 x10(3)/[facility] LABORATORY Monocyte % 7.5 % [facility] Monocyte Abs 0.6 0.3 - 0.9 x10(3)/[facility] LABOR[facility] Eos % 1.3 % [facility] Eosinophils Abs 0.1 0.0 - 0.4 x10(3)/[facility]OR[facility] Basophil % 0.6 % [facility] Baso Absolute 0.0 0.0 - 0.1 x10(3)/[facility] LABOR[facility]ORY Immature Gran % 0.30 % [facility] Comment: Immature granulocytes(IG's)percentage and absolute count will include metamyelocytes, myelocytes, and promyelocytes. Blood smears from CBCs yielding IG's will be scanned manually for concordance. If this scan disagrees with the automated IG or if promyelocytes are noted, a manual differential will be performed. Immature Gran Absolute 0.02 0.00 - 0.04 x10(3)/[facility] LABORATORY Blood 02/01/2024 8:19 AM EDT 02/01/2024 8:39 AM EDT Narrative Resulting Agency Comment Spec In Lab Tee Lara MD HEMATOLOGY ORD ERABLES [facility] [place] [address] * (ABNORMAL) Hemogram (02/01/2024 8:19 AM EDT) White Blood Cell 8.0 4.0 - 9.5 x10(3)/mc L [facility] Red Blood Cell 4.47 4.00 - 5.21 x10(6)/mc L [facility] Hemoglobin 13.1 11.7 - 15.5 g/dL [facility] Hematocrit 39.4 35.7 - 45.8 % [facility] Mean Cell Volume 88.1 82.6 - 94.4 fL [facility] Mean Cell Hemoglobin 29.3 27.1 - 32.0 pg [facility] Mean Cell Hemoglobin Concentration 33.2 31.7 - 35.0 g/dL [facility] Platelet 371(H) 145 - 357 x10(3)/mc L [facility] RDW Standard Deviation 45.4 37.0 - 46.0 [facility] RDW coefficient of variation 14.3(H) 11.5 - 14.1 % [facility] Mean Platelet Volume 9.4 7.6 - 12.9 [facility]OR[facility]ORY NRBC% auto 0.0 % [facility] NRBC Absolute 0.000 0.000 - 0.000 x10(3)/ L [facility] Blood 02/01/2024 8:19 AM EDT 02/01/2024 8:39 AM EDT Narrative Resulting Agency Comment Spec In Lab Tee Lara MD HEMATOLOGY ORD ERABLES [facility] [place] [address] * Comprehensive metabolic panel (non-fasting) (02/01/2024 8:19 AM EDT) Glucose 162 65 - 199 mg/dL [facility] Comment:Diabetes: >=200 mg/d L plus symptoms Blood Urea Nitrogen 14 8 - 18 mg/dL [facility] Creatinine 0.90 0.70 - 1.20 mg/dL [facility] Sodium 140 135 - 145 mmol/L [facility] Potassium 4.7 3.5 - 5.0 mmol/L [facility] Comment: Please note: ??Patients with WBC >100,000 may have falsely elevated Potassium levels. ??For accurate Potassium quantification in these patients send serum separator tube (gold top) for subsequent determinations. ??Contact the Clinical Chemistry Laboratory if there are any questions. Chloride 105 98 - 107 mmol/L [facility] Carbon Dioxide 25 22 - 31 mmol/L [facility] Anion Gap 10 5 - 15 mmol/L [facility] Calcium 9.4 8.5 - 10.5 mg/dL [facility] Protein, Total 6.8 6.1 - 8.0 g/dL [facility] Albumin 4.2 3.2 - 5.2 g/dL [facility] Aspartate Aminotransferase 21 0 - 30 unit/L [facility] Alanine Aminotransferase 28 0 - 30 unit/L [facility] Alkaline Phosphatase 92 35 - 105 unit/L [facility] Bilirubin, Total 0.3 0.2 - 1.3 mg/dL [facility] Est Glomerular Filtration Rate 71 >=60 mL/min/1. 73 m?? [facility] Comment: This patient's estimated [...] Cordero MD CHEMISTRY ORDERABLES Performing Organization Address City/[facility]/ZIP Co de Phone Number [facility] [place] [address] * Lactate Dehydrogenase (02/01/2024 8:19 AM EDT) Lactate Dehydrogenase 195 110 - 220 unit/L [facility] Blood 02/01/2024 8:19 AM EDT 02/01/2024 8:39 AM EDT Narrative Resulting Agency Comment Spec In Lab Arturo Cordero MD CHEMISTRY ORDERABLES Performing Organization Address City/[facility]/ZIP Co de Phone Number [facility] [place] [address] documented in this encounter Visit Diagnoses Diagnosis Malignant melanoma of conjunctiva, left documented in this encounter Care Teams Solder Sprayer Relationship Specialty Start Date End Date Rodney Padilla MD PCP - General 07/18/22 04/09/24 documented as of this encounter
--- OUTSIDE RECORDS SUMMARY | 2024-04-15 15:47 | XMS_ITS | Encounter Summary ---
Author Organization [facility] [place] [address] Care Team Providers Care Men'S Furnishings Salesperson Name Role Phone Rodney Padilla MD Primary Care Provider Unav ailable Reason for Referral * Diagnostic Test (Routine) - Closed Specialty Diagnoses / Procedures Referred By Contac t Referred To Contact Radiology Diagnoses Malignant melanoma of conjunctiva, left Procedures CT Neck Soft Tissue w Contrast (Generic) Tee Lara MD [facility] DR HEMATOLOGY/[place] [address] [facility] [address] Referral ID Status Reason Start Date Expiration Date V isits Requested Visits Authorized [id number] Closed Specialty Service Requested 08/03/2023 01/31/2025 1 1 * Diagnostic Test (Routine) - Closed Specialty Diagnoses / Procedures Referred By Contac t Referred To Contact Radiology Diagnoses Malignant melanoma of conjunctiva, left Procedures CT Chest Abdomen Pelvis w Contrast (Generic) Tee Lara MD [facility] DR HEMATOLOGY/[place] [address] [facility] [address] Referral ID Status Reason Start Date Expiration Date V isits Requested Visits Authorized [id number] Closed Specialty Service Requested 08/03/2023 01/31/2025 1 1 Reason for Visit * Diagnostic Test (Routine) - Closed Specialty Diagnoses / Procedures Referred By Contac t Referred To Contact Radiology Diagnoses Malignant melanoma of conjunctiva, left Procedures CT Chest Abdomen Pelvis w Contrast (Generic) Tee Lara MD [facility] DR HEMATOLOGY/[place] [address] [facility] [address] Referral ID Status Reason Start Date Expiration Date V isits Requested Visits Authorized [id number] Closed Specialty Service Requested 08/03/2023 01/31/2025 1 1 Encounter Details Date Type Department Care Team (Latest Contact Info) Description 02/01/2024 8:04 AM EDT - 02/01/2024 8:11 AM EDT Hospital [place] [address] Arturo Cordero MD [facility] [address] [place] [address] Malignant melanoma of conjunctiva, left [...] 11 10/24/2023 fluticasone propionate (Flonase) 50 mcg/actuation [place], Suspension SPRAY 1 SPRAY IN EACH NOSTRIL TWO TIMES A DAY 48 mL 3 09/28/2023 lamoTRIgine (LaMICtal) 150 mg tablet Take 150 mg by mouth Daily at Noon. 08/17/2023 Blood-Glucose Meter,Continuous (Dexcom G7 Handtools Repairer) MiscIndications:Type 2 diabetes mellitus with hyperglycemia, without long-term current use of insulin 1 Device by [employer] [facility] [employer].(Non-Drug; Combo Route) route continuous. 08/18/2023 Blood-Glucose Sensor (Dexcom G7 Sensor) DeviceIndications:Typ e 2 diabetes mellitus with hyperglycemia, without long-term current use of insulin 1 Device by [employer] [facility] [employer].(Non-Drug; Combo Route) route every 10 days. 3 each 11 08/18/2023 inhalational spacing device ([employer]es[employer] Aerosol [place] Enhancer) SpacerIndications:Chr onic obstructive pulmonary disease, unspecified COPD type 1 each by [employer] [facility] [employer].(Non-Drug; Combo Route) route as needed. 1 each [...] 05/01/2024 11:20 AM EDT Appointment Mammography/DXA at [place] [phone] Rodney Padilla MD 05/01/2024 1:45 PM EDT Office Visit Ophthalmology at [place] [phone] Juanpablo Hernandez MD [facility] [place] [address] 05/23/2024 2:45 PM EST Clinical Support Family Medicine at [address] [phone] Julia Low, [facility] 01/30/2025 1:30 PM EDT Laboratory Appointment Lab at [facility] Hematology Oncology [address] [place] [address] 01/30/2025 3:[address] [place] [address] Arturo Cordero MD [facility] [place] [address] 01/30/2025 4:15 PM EDT Office Visit Hematology [place] [phone] Arturo Cordero MD [facility] DR [place] [address] documented as of this encounter Procedures Procedure Name Priority Date/Time Associated Diagnosis Comments CT CHEST ABDOMEN PELVIS W CONTRAST (GENERIC) Routine 02/01/2024 10:24 AM EDT Malignant melanoma of conjunctiva, left CT NECK SOFT TISSUE W CONTRAST Routine 02/01/2024 10:24 AM EDT Malignant melanoma of conjunctiva, left documented in this encounter Results * CT Neck Soft Tissue w Contrast (Generic) (02/01/2024 10:24 AM EDT) PayLease WORKSTATION ID [id number] RAD Anatomical Region Laterality Modality Neck, Head [...] questions please contact the health director of medicare that requested your imaging first. ? Narrative [...] have questions please contactthe health director of medicare that requested your imaging first. Arturo Cordero MD IMG CT ORDERABLES * CT Chest Abdomen Pelvis w Contrast (Generic) (02/01/2024 10:24 AM EDT) WORKSTATION ID [id number] RAD Anatomical Region Laterality Modality Abdomen, Pelvis [...] questions please contact the health director of medicare that requested your imaging first. ? Narrative [...] have questions please contactthe health director of medicare that requested your imaging first. Arturo Cordero [...] mLs documented in this encounter Care Teams Men'S Furnishings Salesperson Relationship Specialty Start Date End Date Rodney Padilla MD PCP - General 07/18/22 04/09/24 documented as of this encounter
--- OUTSIDE RECORDS SUMMARY | 2024-04-15 15:47 | XMS_ITS | Encounter Summary ---
Author Organization [facility] Address [facility] [place] [address] Care Team Providers Care Fire Tender Name Role Phone Rodney Padilla MD Primary Care Provider Unav ailable Encounter Details Date Type Department Care Team (Late st Contact Info) Description 11/29/2023 1:20 PM EDT Office Visit Dermatology at [facility] [address] [place] [address] Antonia Minor MD [facility] DR L[place] [address] Multiple melanocytic nevi; Photoaging of skin; Seborrheic [...] not submit a PA), and will require [id number] payment at the pharmacy. - Discussed GoodRx, [...] and wound care were reviewed. #. Clavus ([place]) - Focal hyperkeratotic papule on the left [...] 1 year for FSE []Note routed to laboratory secretary [x]Recall placed in scheduling system []Appointment scheduled at checkout Scribe attestation: Nolberto Simmons has performed the documentation for this encounter in the presence of and acting as a scribe for Antonia Minor MD. I performed the above scribed service and agree with the accuracy of the documentation in this encounter. Reviewed and signed by: Antonia Minor MD Dermatology [facility] Staff bacteriologist medical: Justine Castillo MD Dermatology [facility] * Justine Castillo MD - 11/29/2023 1:20 PM EDT I was the supervising physician working with the Dermatology resident, Antonia Minor MD, in the care of this Dermatology patient in person. For the purposes of billing, the resident provided the care. I have reviewed the encounter note details and level of service. JUSTINE CASTILLO MD Staff Oil Well Service Operator Department of Dermatology [facility] documented in this encounter Plan of Treatment Upcoming Encounters Date Type Department Care Team (Late st Contact Info) Description 05/01/2024 11:20 AM EDT Appointment Mammography/[place] [phone] Rodney Padilla MD 05/01/2024 1:45 PM EDT Office [place] [phone] Juanpablo Hernandez MD [facility] [place] [address] 05/23/2024 2:45 PM EST Clinical Support Family Medicine at [address] [phone] Julia Low, [facility] 01/30/2025 1:30 PM EDT Laboratory Appointment Lab at [facility] Hematology Oncology [address] [place] [address] 01/30/2025 3:[address] [place] [phone] Arturo Cordero MD [facility] DR HEMATOLOGY [place] [address] 01/30/2025 4:15 PM EDT Office Visit Hematology [place] [address] Arturo Cordero MD [facility] DR HEMATOLOGY [place] [address] documented as of this encounter Visit Diagnoses Diagnosis Multiple melanocytic nevi Photoaging of skin Other chronic dermatitis due to solar radiation Seborrheic keratoses, inflamed Clavus Corns and callosities Seborrheic keratoses Lentigines Other dyschromia Aranda angioma Nevus, non-neoplastic History of malignant melanoma of eye Family history of other specified malignant neoplasm documented in this encounter Care Teams Fire Tender Relationship Specialty Start Date End Date Rodney Padilla MD PCP - General 07/18/22 04/09/24 documented as of this encounter
--- OUTSIDE RECORDS SUMMARY | 2024-04-15 15:47 | XMS_ITS | Encounter Summary ---
Author Organization Replaced By [facility] [place] [address] Care Team Providers Care Barometers Calibrator Name Role Phone Rodney Padilla MD Primary Care Provider Unav ailable Reason for Visit * Reason Onset Date Comments Medication Refill 02/18/2024 Encounter Details Date Type Department Care Team (Late st Contact Info) Description 02/18/2024 Refill Family Medicine at [facility] [address] [place] [address] Rodney Padilla MD Essential hypertension Social History [...] 05/01/2024 11:20 AM EDT Appointment Mammography/[place] [phone] Rodney Padilla MD 05/01/2024 1:45 PM EDT Office [place] [phone] Juanpablo Hernandez MD [facility] [place] [address] 05/23/2024 2:45 PM EST Clinical Support Family Medicine at [facility] [address] [place] [address] Julia Low [facility] 01/30/2025 1:30 PM EDT Laboratory Appointment Lab at [facility] Hematology Oncology [address] [place] [address] 01/30/2025 3:[address] [place] [address] Arturo Cordero MD [facility] DR HEMATOLOGY [place] [address] 01/30/2025 4:15 PM EDT Office Visit Hematology [place] [address] Arturo Cordero MD [facility] DR HEMATOLOGY [place] [address] documented as of this encounter Visit Diagnoses Diagnosis Essential hypertension Unspecified essential hypertension documented in this encounter Care Teams Barometers Calibrator Relationship Specialty Start Date End Date Rodney Padilla MD PCP - General 07/18/22 04/09/24 documented as of this encounter
--- OUTSIDE RECORDS SUMMARY | 2024-04-15 15:47 | XMS_ITS | Encounter Summary ---
Author Organization [facility] Address [facility] [place] [address] Care Team Providers Care Instructional Systems Design Consultant Name Role Phone Rodney Padilla MD [...] 05/01/2024 11:20 AM EDT Appointment Mammography/DXA at [place] [phone] Rodney Padilla MD 05/01/2024 1:45 PM EDT Office Visit [place] [phone] Juanpablo Hernandez MD [facility] [place] [address] 05/23/2024 2:45 PM EST Clinical Support Family Medicine at [address] [phone] Julia Low, [facility] 01/30/2025 1:30 PM EDT Laboratory Appointment Lab at [facility] Hematology Oncology [address] [place] [address] 01/30/2025 3:[address] [place] [address] Arturo Cordero MD [facility] [place] [address] 01/30/2025 4:15 PM EDT Office Visit Hematology [place] [address] Arturo Cordero MD [facility] [place] [address] documented as of this encounter Visit Diagnoses Not on filedocumented in this encounter Care Teams Instructional Systems Design Consultant Relationship Specialty Start Date End Date Rodney Padilla MD PCP - General 07/18/22 04/09/24 documented as of this encounter
--- OUTSIDE RECORDS SUMMARY | 2024-04-15 15:47 | XMS_ITS | Encounter Summary ---
Author Organization [facility] Address [facility] [place] [address] Care Team Providers Care Restoration Officer Name Role Phone Rodney Padilla MD [...] AM EDT Appointment Mammography/DXA at [place] [phone] Rodney Padilla MD 05/01/2024 1:45 PM EDT Office [place] [phone] Juanpablo Hernandez MD [facility] [place] [place] [address] 05/23/2024 2:45 PM EST Clinical Support Family Medicine at [address] [phone] Julia Low, [facility] 01/30/2025 1:30 PM EDT Laboratory Appointment Lab at [facility] Hematology Oncology [address] [place] [address] 01/30/2025 3:[address] [place] [address] Arturo Cordero MD [facility] [place] [address] 01/30/2025 4:15 PM EDT Office Visit Hematology [place] [address] Arturo Cordero MD [facility] [place] [address] documented as of this encounter Visit Diagnoses Not on filedocumented in this encounter Care Teams Restoration Officer Relationship Specialty Start Date End Date Rodney Padilla MD PCP - General 07/18/22 04/09/24 documented as of this encounter
--- OUTSIDE RECORDS SUMMARY | 2024-04-15 15:47 | XMS_ITS | Encounter Summary ---
Author Organization [place] [address] Care Team Providers Care Graining Operator Name Role Phone Rodney Padilla MD Primary Care Provider Unav ailable Reason for Referral * Diagnostic Test (Routine) - New Request Specialty Diagnoses / Procedures Referred By Contac t Referred To Contact Radiology Diagnoses Malignant melanoma of conjunctiva, left Procedures CT Neck Soft Tissue w Contrast (Generic) Arturo Cordero MD [facility] [place] [address] [facility] [place] [address] Referral ID Status Reason Start Date Expiration Date Visits Requested Visits Authorized [id number] New Request Specialty Service Requested 02/02/2024 08/04/2025 1 1 * Diagnostic Test (Routine) - New Request Specialty Diagnoses / Procedures Referred By Contchrissy t Referred To Contact Radiology Diagnoses Lung nodule Renal cell cancer, left Procedures CT Chest Abdomen Pelvis w Contrast (Generic) Arturo Cordero MD [facility] [place] [address] [facility] [place] [address] Referral ID Status Reason Start Date Expiration Date Visits Requested Visits Authorized [id number] New Request Specialty Service Requested 02/02/2024 08/04/2025 1 1 Reason for Visit * Reason Comments Follow-up Encounter Details Date Type Department Care Team (Cornelius st Contact Info) Description 02/01/2024 11:15 AM EDT Office Visit Hematology [place] [address] Arturo Cordero MD [facility] [place] [address] Malika Luna APRN [facility] [place] [place] [address] Malignant melanoma of conjunctiva, left (Primary Dx); [...] from the original note were not included. [facility] NOTE REFERING PHYSICIAN: Dr. Juanpablo Hernandez [...] management - fall 2018: saw a new community outreach director and was referred to Dr. 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 Medina - 03/31/2020: saw her community outreach director Dr. Hernandez and was noted to have [...] Asthma uses inhalerswith good effect Atherosclerosis of [place] coronary artery of [place] heart with angina pectoris 10/09/2007 History of [...] 3.47) performed by Juanpablo Hernandez MD at [facility] OSC PRO EXCIS CORNEA LESN Left 05/14/2020 EXCISION OF LESION, CORNEA, EXCEPT PTERYGIUM (WRVU 7.5) performed by Juanpablo Hernandez MD at [facility] OSC PRO LAP, PARTIAL NEPHRECTOMY Left 06/28/2019 LAPAROSCOPY, PARTIAL NEPHRECTOMY, ROBOTIC ASSIST (WRVU 27.41) performed by Avila Medina MD at [facility] MAIN OR PRO PLACE AMNIOTIC MEMBRANE OCULAR SURFACE;SINGLE LAYER SUTURED Left 05/14/2020 PLACEMENT OF AMNIOTIC MEMBRANE ON THE OCULAR SURFACE,SINGLE LAYER,SUTURED (WRVU 2.5) performed by Juanpablo Hernandez MD at [facility] OSC MEDS: Alcohol Swabs, (Blood-Glucose Meter,Continuous), Blood-Glucose Sensor, LORazepam, albuteroL, amLODIPine, aspirin EC, blood sugar diagnostic strips, blood-glucose meter, busPIRone, clopidogreL, fluticasone khrfhjx-clvmipxxrevz-vcsiptbpuK, fluticasone propionate, inhalational spacing device, insulin glargine, [...] with significant other 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, 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 [...] 05/01/2024 11:20 AM EDT Appointment Mammography/[place] [address] Rodney Padilla MD 05/01/2024 1:45 PM EDT Office [place] [address] Juanpablo Hernandez MD [facility] [place] [address] 05/23/2024 2:45 PM EST Clinical Support [facility] [address] [place] [address] Julia Low, [facility] 01/30/2025 1:30 PM EDT Laboratory Appointment Lab at [facility] Hematology Oncology [address] [place] [address] 01/30/2025 3:[address] [place] [phone] Arturo Cordero MD [facility] [place] [address] 01/30/2025 4:15 PM EDT Office Visit Hematology [place] [phone] Arturo Cordero MD [facility] [place] [address] Scheduled Orders Name Type Priority Associated Diagnoses [...] left documented in this encounter Care Teams Graining Operator Relationship Specialty Start Date End Date Rodney Padilla MD PCP - General 07/18/22 04/09/24 documented as of this encounter
--- OUTSIDE RECORDS SUMMARY | 2024-04-15 15:47 | XMS_ITS | Encounter Summary ---
Author Organization [facility] Address [facility] [place] [address] Care Team Providers Care General Farm Manager Name Role Phone Rodney Padilla MD [...] AM EDT Appointment Mammography/DXA at [place] [phone] Rodney Padilla MD 05/01/2024 1:45 PM EDT Office [place] [phone] Juanpablo Hernandez MD [facility] [place] [address] 05/23/2024 2:45 PM EST Clinical Support Family Medicine at [address] [phone] Julia Low, [facility] 01/30/2025 1:30 PM EDT Laboratory Appointment Lab at [facility] Hematology Oncology [address] [place] [address] 01/30/2025 3:[address] [place] [address] Arturo Cordero MD [facility] DR HEMATOLOG[place] [address] 01/30/2025 4:15 PM EDT Office Visit Hematology [place] [address] Arturo Cordero MD [facility] DR [place]ATOLOG[place] [address] documented as of this encounter Visit Diagnoses Not on filedocumented in this encounter Care Teams General Farm Manager Relationship Specialty Start Date End Date Rodney Padilla MD PCP - General 07/18/22 04/09/24 documented as of this encounter
--- OUTSIDE RECORDS SUMMARY | 2024-04-15 15:47 | XMS_ITS | Encounter Summary ---
Author Organization [facility] [place] [address] Care Team Providers Care Security Rover Name Role Phone Rodney Padilla MD Primary Care Provider Unav ailable Encounter Details Date Type Department Care Team (Latest Contact Info) Description 03/20/2024 11:00 AM EDT Laboratory Appointment Lab at [facility] [address] [place] [address] Type 2 diabetes mellitus without long-term current [...] AM EDT Appointment Mammography/[place] [phone] Rodney Padilla MD 05/01/2024 1:45 PM EDT Office [place] [address] Juanpablo Hernandez MD [facility] [place] [address] 05/23/2024 2:45 PM EST Clinical Support Family Medicine at [address] [phone] Julia Low [facility] 01/30/2025 1:30 PM EDT Laboratory Appointment Lab at [facility] Hematology Oncology [address] [place] [address] 01/30/2025 3:[address] [place] [address] Arturo Cordero MD [facility] DR [place] [address] 01/30/2025 4:15 PM EDT Office Visit Hematology [place] [address] Arturo Cordero MD [facility] DR [place] [address] documented as of this encounter Procedures Procedure Name Priority Date/Time Associated Diagnosis Comments HEMOGLOBIN A1C Routine 03/20/2024 11:05 AM EDT Type 2 diabetes mellitus without long-term current use of insulin documented in this encounter Results * (ABNORMAL) Hemoglobin A1c (03/20/2024 11:05 AM EDT) Hemoglobin A1c 7.7(H) 4.3 - 5.6 % 03/20/2024 2:06 PM EDT [facility] Comment: Per ADA guidelines, without clear [...] red blood cell turnover may not be high school admissions representative of glycemic control. Reference Interval: 4.3 - 5.6% 5.7 - 6.4%: Consistent with prediabetes >=6.5%: Consistent with diagnosis of diabetes mellitus Estimated Average Glucose 174 mg/dL 03/20/2024 2:06 PM EDT [facility] Blood VENOUS BLOOD SPECIMEN / Unknown Venipuncture / Unknown 03/20/2024 11:05 AM EDT 03/20/2024 11:05 AM EDT Rodney Padilla MD CHEMISTRY ORDERABLE S [facility] [place] [address] documented in this encounter Visit Diagnoses Diagnosis Type 2 diabetes mellitus without long-term current use of insulin documented in this encounter Care Teams Security Rover Relationship Specialty Start Date End Date Rodney Padilla MD PCP - General 07/18/22 04/09/24 documented as of this encounter
--- OUTSIDE RECORDS SUMMARY | 2024-04-15 15:48 | XMS_ITS | Encounter Summary ---
Author Organization [facility] Address [facility]erc[facility] [place] [address] Care Team Providers Care Interior Design Principal Name Role Phone Rodney Padilla MD Primary [...] 05/01/2024 11:20 AM EDT Appointment Mammography/DXA at [place] [phone] Rodney Padilla MD 05/01/2024 1:45 PM EDT Office Visit Ophthalmology at [place] [phone] Juanpablo Hernandez MD [facility] [place] [address] 05/23/2024 2:45 PM EST Clinical Support Family Medicine at [place] [address] [place] [address] Julia Low, [facility] 01/30/2025 1:30 PM EDT Laboratory Appointment Lab at [facility] [place] Hematology Oncology [address] [place] [address] 01/30/2025 3:[address] [place] [address] Arturo Cordero MD [facility] DR HEMATOLOGY [place] [address] 01/30/2025 4:15 PM EDT Office Visit Hematology [place] [address] Arturo Cordero MD [facility] DR HEMATOLOGY [place] [address] documented as of this encounter Visit Diagnoses Not on filedocumented in this encounter Care Teams Interior Design Principal Relationship Specialty Start Date End Date Rodney Padilla MD PCP - General 07/18/22 04/09/24 documented as of this encounter
--- OUTSIDE RECORDS SUMMARY | 2024-04-15 15:48 | XMS_ITS | Encounter Summary ---
Author Organization [facility] [place] [address] Care Team Providers Care Land Measurer Name Role Phone Rodney Padilla MD Primary Care Provider Unav ailable Reason for Visit * Reason Comments Follow-up Abdominal discomfort Encounter Details Date Type Department Care Team (Latest Contact Info) Description 09/19/2023 10:30 AM EDT Office Visit Family Medicine at [facility] [address] [place] [address] Rodney Padilla MD Severe obesity; Chronic obstructive pulmonary disease, unspecified COPD type; Bipolar affective disorder in remission; Adrenal mass; Diabetic polyneuropathy associated with type 2 diabetes mellitus; Coronary artery disease involving [place] coronary artery of [place] heart with angina pectoris; Abdominal bloating; Type [...] 90 tablet 1 Blood-Glucose Meter,Continuous (Dexcom G7 Signal Circuit Designer) Misc 1 Device by [employer].(Non- Drug; Combo Route) route continuous. (Patient not taking: Reported on 08/29/2023) Blood-Glucose Sensor (Dexcom G7 Sensor) Device 1 Device by [facility]Non-Drug; Combo Route) route every10 days. (Patient not [...] each 3 inhalational spacing device (Hesham Aerosol [place]aden Enhancer) Spacer 1 each by Misc.(Non-Drug; Combo [...] tablet 5 fluticasone propionate (Flonase) 50 mcg/actuation Burt, Suspension 1 spray by Each Nare route [...] Referring and communicating with other health manager managed care Documenting clinical information in the electronic or other health record Independently interpreting results Care coordination documented in this encounter Plan of Treatment Upcoming Encounters Date Type Department Care Team (Late st Contact Info) Description 05/01/2024 11:20 AM EDT Appointment Mammography/[place] [phone] Rodney Padilla MD 05/01/2024 1:45 PM EDT Office [place] [address] Juanpablo Hernandez MD [facility] [place] [address] 05/23/2024 2:45 PM EST Clinical Support Family Medicine at [facility] [address] [place] [address] Julia Low [facility] 01/30/2025 1:30 PM EDT Laboratory Appointment Lab at [facility] [place] Hematology Oncology [address] [place] [address] 01/30/2025 3:[address] [place] [phone] Arturo Cordero MD [facility] [place] [address] 01/30/2025 4:15 PM EDT Office Visit Hematology [place] [phone] Arturo Cordero MD [facility] [place] [address] documented as of this encounter Results * [...] Mellitus, Diabetes Care 2013; 36: Suppl. 1, O03-79 Estimated Average Glucose 217 mg/dL [facility] Blood 09/19/2023 11:2 4 AM EDT 09/19/2023 1:14 PM EDT Narrative Resulting Agency Comment Spec In Lab Rodney Padilla MD CHEMISTRY ORDERABLE S [facility] [place] [address] documented in this encounter Visit Diagnoses Diagnosis Severe obesity Morbid obesity Chronic obstructive pulmonary disease, unspecified COPD type Bipolar affective disorder in remission Adrenal mass Unspecified disorder of adrenal glands Diabetic polyneuropathy associated with type 2 diabetes mellitus Coronary artery disease involving [place] coronary artery of [place] heart with angina pectoris Abdominal bloating Flatulence, eructation, and gas pain Type 2 diabetes mellitus without complication, with long-term current use of insulin documented in this encounter Care Teams Land Measurer Relationship Specialty Start Date End Date Rodney Padilla MD PCP - General 07/18/22 04/09/24 documented as of this encounter
--- OUTSIDE RECORDS SUMMARY | 2024-04-15 15:48 | XMS_ITS | Encounter Summary ---
Author Organization [facility] Address [place] [id number] Care Team Providers Care Loan Broker Name Role Phone Rodney Padilla MD Primary Care Provider Unav ailable Reason for Referral * Consultation (Routine) - Closed Specialty Diagnoses / Procedures Referred By Gonzalez kumari Referred To Contact Pulmonology Diagnoses Interstitial lung disease Rodney Padilla MD [address] [place] [address] [facility]mon[facility] [address] [place] [phone] Referral ID Status Reason Start Date Expiration Date V isits Requested Visits Authorized [id number] Closed Consult, Test & Treat 08/21/2023 08/20/2024 1 1 Encounter Details Date Type Department Care Team (Late st Contact Info) Description 08/21/2023 Orders Only Family Medicine at [address] [place] [address] Rodney Padilla MD Interstitial lung disease Social History Tobacco Use [...] 05/01/2024 11:20 AM EDT Appointment Mammography/[place] [phone] Rodney Padilla MD 05/01/2024 1:45 PM EDT [place] [phone] Juanpablo Hernandez MD [facility] [place] [address] 05/23/2024 2:45 PM EST Clinical Support Family Medicine at [facility] [address] [place] [address] Julia Low, [facility] 01/30/2025 1:30 PM EDT Laboratory Appointment Lab at [facility] [place] [place]ematology Oncology [address] [place] [address] 01/30/2025 3:[address] [place] [phone] Arturo Cordero MD [facility] DR [place] [address] 01/30/2025 4:15 PM EDT Office Visit [place]ology [place] [phone] Arturo Cordero MD [facility] DR [place] [address] Scheduled Referrals Name Type Priority Associated Diagnoses Order Schedule Referral to Pulmonology Outpatient Referral Routine Interstitial lung disease Ordered: 08/21/2023 documented as of this encounter Visit Diagnoses Diagnosis Interstitial lung disease Postinflammatory pulmonary fibrosis documented in this encounter Care Teams Loan Broker Relationship Specialty Start Date End Date Rodney Padilla MD PCP - General 07/18/22 04/09/24 documented as of this encounter
--- OUTSIDE RECORDS SUMMARY | 2024-04-15 15:48 | XMS_ITS | Encounter Summary ---
Author Organization [facility] Address [facility] [address] Care Team Providers Care Fish Processor Name Role Phone Rodney Padilla MD [...] 05/01/2024 11:20 AM EDT Appointment Mammography/DXA at [place] [phone] Rodney Padilla MD 05/01/2024 1:45 PM EDT Office Visit Ophthalmology at [place] [phone] Juanpablo Hernandez MD [facility] [place] [address] 05/23/2024 2:45 PM EST Clinical Support Family Medicine at [place] [address] [place] [address] Julia Low, [facility] 01/30/2025 1:30 PM EDT Laboratory Appointment Lab [place] [facility] [place] [address] [place] [address] 01/30/2025 3:[address] [place] [address] Arturo Cordero MD [facility] DR [place] [address] 01/30/2025 4:15 PM EDT Office Visit Hematology [place] [address] Arturo Cordero MD [facility] DR [place] [address] documented as of this encounter Visit Diagnoses Not on filedocumented in this encounter Care Teams Fish Processor Relationship Specialty Start Date End Date Rodney Padilla MD PCP - General 07/18/22 04/09/24 documented as of this encounter
--- OUTSIDE RECORDS SUMMARY | 2024-04-15 15:48 | XMS_ITS | Encounter Summary ---
Author Organization [facility] Address [facility] [place] [address] Care Team Providers Care Spring Assembler Name Role Phone Rodney Padilla MD Primary [...] 05/01/2024 11:20 AM EDT Appointment Mammography/DXA at [place] [phone] Rodney Padilla MD 05/01/2024 1:45 PM EDT Office Visit Ophthalmology at [place] [phone] Juanpablo Hernandez MD [facility] [place] [address] 05/23/2024 2:45 PM EST Clinical Support Family Medicine at [place] [address] [place] [address] Julia Low, [facility] 01/30/2025 1:30 PM EDT Laboratory Appointment Lab [place] [facility] [place] [address] [place] [address] 01/30/2025 3:[address] [place] [address] Arturo Cordero MD [facility] DR HEMATOLOGY [place] [address] 01/30/2025 4:15 PM EDT Office Visit [place]ology [place] [address] Arturo Cordero MD [facility] DR HEMATOLOGY [place] [address] documented as of this encounter Visit Diagnoses Not on filedocumented in this encounter Care Teams Spring Assembler Relationship Specialty Start Date End Date Rodney Padilla MD PCP - General 07/18/22 04/09/24 documented as of this encounter
--- OUTSIDE RECORDS SUMMARY | 2024-04-15 15:48 | XMS_ITS | Encounter Summary ---
Author Organization [facility] [place] [address] Care Team Providers Care Acid Remover Name Role Phone Rodney Padilla MD Primary Care Provider Unav ailable Encounter Details Date Type Department Care Team (Latest Contact Info) Description 09/19/2023 11:20 AM EDT Laboratory Appointment Lab at [facility] [address] [place] [address] Type 2 diabetes mellitus without complication, with [...] AM EDT Appointment Mammography/DXA at [place] [phone] Rodney Padilla MD 05/01/2024 1:45 PM EDT Office Visit Ophthalmology at [place] [phone] Juanpablo Hernandez MD [facility] OPHTHALMOLOGY [place], [place] [phone] 05/23/2024 2:45 PM EST Clinical Support Family Medicine at [address] [address] Julia Low [facility] 01/30/2025 1:30 PM EDT Laboratory Appointment Lab at [facility] [place] Hematology Oncology [address] [place] [address] 01/30/2025 3:[address] [place] [address] Arturo Cordero MD [facility] DR [place]EM[place] [address] 01/30/2025 4:15 PM EDT Office Visit Hematology [place] [address] Arturo Cordero MD [facility] DR [place] [address] documented as of this encounter Procedures Procedure Name Priority Date/Time Associated Diagnosis Comments HEMOGLOBIN A1C Routine 09/19/2023 11:24 AM EDT Type 2 diabetes mellitus without complication, with long-term current use of insulin documented in this encounter Results * (ABNORMAL) Hemoglobin A1c (09/19/2023 11:24 AM EDT) Hemoglobin A1c 9.2(H) 4.3 - 5.6 % [facility] Comment: Reference Range: 4.3 - 5.6% [...] Mellitus, Diabetes Care 2013; 36: Suppl. 1, S67-56 Estimated Average Glucose 217 mg/dL [facility] Blood 09/19/2023 11:2 4 AM EDT 09/19/2023 1:14 PM EDT Narrative Resulting Agency Comment Spec In Lab Rodney Padilla MD CHEMISTRY ORDERABLE S [facility] [place] [address] documented in this encounter Visit Diagnoses Diagnosis Type 2 diabetes mellitus without complication, with long-term current use of insulin documented in this encounter Care Teams Acid Remover Relationship Specialty Start Date End Date Rodney Padilla MD PCP - General 07/18/22 04/09/24 documented as of this encounter
--- OUTSIDE RECORDS SUMMARY | 2024-04-15 15:48 | XMS_ITS | Encounter Summary ---
Author Organization [facility] [place] [address] Care Team Providers Care Back Filler Operator Name Role Phone Rodney Padilla MD Primary Care Provider Unav ailable Reason for Visit * Reason Comments Diabetes Encounter Details Date Type Department Care Team (Late st Contact Info) Description 08/18/2023 9:45 AM EST Clinical Support Family Medicine at [facility] [address] [place] [phone] Julia Low, [facility] Type 2 diabetes mellitus without [...] No 06/14/2021 Housing Stability Vital Sign Answer Ozeil e Recorded In the last 12 months, [...] Progress Notes * Julia Low RPH - 08/18/2023 9:45 AM EST Clinical Pharmacist Consultation; Julia oLw RPH Visit Type: Clinic followup Diabetes Mellitus (DM) & Medication Management Subjective Subjective: Patient ID: Alize Gramajo is a 62 y.o. female She is here to re-establish care for their type II diabetes. Length of DM [] New dx Year of diagnosis: unk earliest reports 2018 Diabetic complications: PMH notable for any of the following conditions: Yes [x] WA/Stroke/CAD [] Retinopathy [] CHF [x] Neuropathy [] [...] Provider/date: Rodney Padilla MD 06/14/21 Tamera Khan GRINDER SET UP OPERATOR Health Beliefs and Attitudes Feelings about having DM agitated and anxious Pt's original reasons for uncontrolled DM Knee pain Stress from finances Shoulder/neck pain Anxiety Depression The pt is in a contemplative stage of making changes to manage their diabetes Factors causing stress (health, money, job, social) 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 3 x weekly. Uses [employer] testing supplies Interested in Dexcom G7, report approved by insurance. Needs to call [employer] [facility] to get an update on shipping Before Brkfast After Brkfast Before Lunch After Lunch Before Supper 5-Aug 260 6-Aug 260 167 7-Aug 218 217 212 8-Aug 177 192 185 9-Aug 219 AM PHI PM Average 205 205 260 219 167 Lowest 177 192 260 185 167 Highest 219 217 260 260 167 Daily Avg 211 eA1c 9.43655 Prior Averages: 08/26/21 09/09/21 09/24/21 11/14/21 11/03/22 12/01/22 01/03/23 Daily Avg 157 168 131 138 175 153 176 eA1c 8.53641 8.46 7.20 7.44 8.7 7.95 8.75 Acute [...] diabetes mellitus 3 mL 11 Blood-Glucose Sensor ([employer] G7 Sensor) Device 1 Device by [facility] [place] [place].(Non-Drug; Combo Route) route every10 days. 3 each 11 lamoTRIgine (LaMICtal) 100 mg tablet Take 1.5 tablets by mouth daily. 90 tablet 3 umeclidinium-vilanteroL (Anoro Ellipta) 62.5-25 mcg/actuation Disk with Device Inhale 1 Inhalation into the lungs daily. 3 each 3 inhalational spacing device (Hesham Aerosol [place] Enhancer) Spacer 1 each by [facility] [place] [place].(Non-Drug; Combo Route) route as needed. 1 each [...] tablet 5 fluticasone propionate (Flonase) 50 mcg/actuation Venus, Suspension 1 spray by Each Nare route [...] of insulin - Blood-Glucose Meter,Continuous (Dexcom G7 Tomb Maker Helper) Misc; 1 Device by Misc.(Non-Drug; Combo Route) [...] before supper while waiting for CGM Called [employer] with patient and confirmed new clinical notes needed Faxed to [employer] and reauthorized Also enrolled in autorefill Follow [...] AM EDT Appointment Mammography/[place] [phone] Rodney Padilla MD 05/01/2024 1:45 PM EDT Office [place] [phone] Juanpablo Hernandez MD [facility] [place] [address] 05/23/2024 2:45 PM EST Clinical Support Family Medicine at [address] [phone] Julia Low RPH 01/30/2025 1:30 PM EDT Laboratory Appointment Lab at [facility] Hematology Oncology [address] [place] [address] 01/30/2025 3:[address] [place] [phone] Arturo Cordero MD [facility] [place] [address] 01/30/2025 4:15 PM EDT Office Visit Hematology [place] [address] Arturo Cordero MD [facility] [place] [address] documented as of this encounter Visit Diagnoses Diagnosis Type 2 diabetes mellitus without long-term current use of insulin- Primary documented in this encounter Care Teams Back Filler Operator Relationship Specialty Start Date End Date Rodney Padilla MD PCP - General 07/18/22 04/09/24 documented as of this encounter
--- OUTSIDE RECORDS SUMMARY | 2024-04-15 15:48 | XMS_ITS | Encounter Summary ---
Author Organization [facility] Address [facility] [address] Care Team Providers Care Screener And Blender Operator Name Role Phone Rodney Padilla MD [...] 05/01/2024 11:20 AM EDT Appointment Mammography/DXA at [place] [phone] Rodney Padilla MD 05/01/2024 1:45 PM EDT Office Visit Ophthalmology at [place] [phone] Juanpablo Hernandez MD [facility] [place] [address] 05/23/2024 2:45 PM EST Clinical Support Family Medicine at [place] [address] [place] [address] Julia Low, [facility] 01/30/2025 1:30 PM EDT Laboratory Appointment Lab [place] [facility] [place] [address] [place] [address] 01/30/2025 3:[address] [place] [address] Arturo Cordero MD [facility] DR [place] [address] 01/30/2025 4:15 PM EDT Office Visit [place]ematology [place] [address] Arturo Cordero MD [facility] DR [place] [address] documented as of this encounter Visit Diagnoses Not on filedocumented in this encounter Care Teams Screener And Blender Operator Relationship Specialty Start Date End Date Rodney Padilla MD PCP - General 07/18/22 04/09/24 documented as of this encounter
--- OUTSIDE RECORDS SUMMARY | 2024-04-15 15:48 | XMS_ITS | Encounter Summary ---
Author Organization [facility] [address] Care Team Providers Care Hide And Skin Classer Name Role Phone Rodney Padilla MD Primary Care Provider Unav ailable Encounter Details Date Type Department Care Team (Latest Contact Info) Description 08/18/2023 12:40 PM EST - 08/18/2023 11:59 PM EST Hospital En[place] [address] Chronic obstructive pulmonary disease, unspecified COPD type [...] at Noon. 08/17/2023 Blood-Glucose Meter,Continuous (Dexcom G7 Rolled Gold Plater) MiscIndications:Type 2 diabetes mellitus with hyperglycemia, without [...] 11 08/18/2023 inhalational spacing device (Hesham Aerosol [place] Enhancer) SpacerIndications:Chr onic obstructive pulmonary disease, unspecified [...] needles, disposable, 32 gauge x 5/32 NeedleIndications:true dunham mellitus Inject 1 each subcutaneously daily. Indications: diabetes 100 each 11 10/05/2022 11/02/2023 nitroGLYcerin (Nitrostat) 0.[address] 1 tablet under the tongue See Admin Instructions. 30 tablet 5 09/26/2022 09/19/2023 fluticasone propionate (Flonase) 50 mcg/actuation [place], Suspension 1 spray by Each Nare [...] AM EDT Appointment Mammography/[place] [phone] Rodney Padilla MD 05/01/2024 1:45 PM EDT Office Visit Ophthalmology at [place] [phone] Juanpablo Hernandez MD [facility] [place] [address] 05/23/2024 2:45 PM EST Clinical Support Family Medicine at [address] [phone] Julia Low [facility] 01/30/2025 1:30 PM EDT Laboratory Appointment Lab [place] [facility] [place] [address] [place] [address] 01/30/2025 3:[address] [place] [address] Arturo Cordero MD [facility] [place] [address] 01/30/2025 4:15 PM EDT Office Visit Hematology [place] [address] Arturo Cordero MD [facility] [place] [address] documented as of this encounter Procedures Procedure [...] PFT FEV1/FVC Pre-BD Z-Score -0.96 COMPAS PFT QCU74-14 Actual Pre-BD 0.88 % COMPAS PFT XBW83-45 Predicted 2.06 % COMPAS PFT VAM48-57 Pre-BD % of Predicted 43 % COMPAS PFT WDC78-27 Pre-BD Z-Score -1.92 COMPAS PFT DLCO Hb [...] type documented in this encounter Care Teams Hide And Skin Classer Relationship Specialty Start Date End Date Rodney Padilla MD PCP - General 07/18/22 04/09/24 documented as of this encounter
--- OUTSIDE RECORDS SUMMARY | 2024-04-15 15:48 | XMS_ITS | Encounter Summary ---
Author Organization [facility] Address [facility] [place] [address] Care Team Providers Care Supervisor Contact Lens Name Role Phone Rodney Padilla MD Primary [...] Description 07/05/2023 Nurse Triage Family Medicine at [facility] [address] [place] [address] Kaela Rodriges marshmallow maker Problem (Dr. Padilla wanted her to call [...] - 07/05/2023 4:46 PM EST Copied from [facility] #[id number]. Topic: Triage - Triage >> Jul 05, 2023 4:29 PM Jackie Zuluaga wrote: Symptom: Appetite Change PCP: RODNEY PADILLA Additional Comments: Patient says that she can't eat while on dulaglutide (Trulicity) 0.75 mg/0.5 mL Pen Injector [[id number]]. She said that it is effecting her gastrointestinal issues. Patient said that she saw a dietitian to check her blood sugar. She would like to speak with someone about this. Please call patient. documented in this encounter Plan of Treatment Upcoming Encounters Date Type Department Care Team (Late st Contact Info) Description 05/01/2024 11:20 AM EDT Appointment Mammography/[place] [address] Rodney Padilla MD 05/01/2024 1:45 PM EDT Office [place] [phone] Juanpablo Hernandez MD [facility] [place] [place] [address] 05/23/2024 2:45 PM EST Clinical Support Family Medicine at [facility] [address] [place] [address] Julia Low, [facility] 01/30/2025 1:30 PM EDT Laboratory Appointment Lab at [facility] Hematology Oncology [address] [place] [address] 01/30/2025 3:[address] [place] [phone] Arturo Cordero MD [facility] [place] [address] 01/30/2025 4:15 PM EDT Office Visit Hematology [place] [address] Arturo Cordero MD [facility] [place] [address] documented as of this encounter Visit Diagnoses Not on filedocumented in this encounter Care Teams Supervisor Contact Lens Relationship Specialty Start Date End Date Rodney Padilla MD PCP - General 07/18/22 04/09/24 documented as of this encounter
--- OUTSIDE RECORDS SUMMARY | 2024-04-15 15:48 | XMS_ITS | Encounter Summary ---
Author Organization [facility] [place] [address] Care Team Providers Care Associate Store Director Name Role Phone Rodney Padilla MD Primary Care Provider Unav ailable Reason for Visit * Consultation (Routine) - Closed Specialty Diagnoses / Procedures Referred By Gonzalez kumari Referred To Contact Pulmonology Diagnoses Interstitial lung disease Rodney Padilla MD [address] [place] [address] [facility] Pulmonology [address] [place] [phone] Referral ID Status Reason Start Date Expiration Date V isits Requested Visits Authorized [id number] Closed Consult, Test & Treat 08/21/2023 08/20/2024 1 1 Encounter Details Date Type Department Care Team (Late st Contact Info) Description 10/24/2023 11:00 AM EDT Office [place] [phone] Jonathan Boswell MD [facility] [place] [address] Nicotine dependence, cigarettes, uncomplicated; Wheeze; [...] and gum and have you call the [employer] line for additional assistance. They may also [...] visit. You can reach me by phone ([phone]) or by sending a [employer] message. Best, Jonathan Boswell MD Tips for Optimal Use of Nasal Fontana Medication It is incredibly common for people [...] towards the top of your Left ear. Fontana the medication. But DO NOT forcefully sniff [...] he starts to go through the procedure. www.Per [email or web address].com/watch?[email or web address] Tobacco Treatment: Nicotine Replacement Instructions Nicotine patch [...] from the original note were not included. [facility] Section of Pulmonary and Critical Care Medicine Outpatient Consultation - Initial Visit Date of Encounter: 10/24/2023 Referring Provider: Rodney Padilla MD [address] [place] [address] PCP: Rodney Padilla MD Reason for Evaluation: ILD This was a xkxb-fe-mizc office visit. History of Present Illness: Alize [...] past when she had a respiratory illness andrecalls being prescribed 80 mg of prednisone and [...] on disability. 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 She enjoys gardening, renae in particular. 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 Current Medications Current Outpatient Medications: fluticasone propionate (Flonase) 50 mcg/actuation [place], Suspension, SPRAY 1 SPRAY IN EACH NOSTRIL TWO TIMES A DAY, Disp: 48 mL, Rfl: 3 lamoTRIgine (LaMICtal) 150 mg tablet, Take 150 mg by mouth Daily at Noon., Disp: , Rfl: simvastatin (Zocor) 10 mg tablet, TAKE ONE TABLET BY MOUTH EVERY DAY, Disp: 90 tablet, Rfl: 1 Blood-Glucose Meter,Continuous (Dexcom G7 Manager Patient) Misc, 1 Device by Misc.(Non- Drug; Combo [...] , Rfl: inhalational spacing device (Hesham Aerosol Cottle Enhancer) Spacer, 1 each by Misc.(Non-Drug; Combo [...] minutes on this encounter on 10/24/2023 including vhbe-ud-dnxv time, counseling, managingmedications, reviewing records, interpreting data, and documenting as detailed in my note above. Jonathan Boswell MD [facility] Pet Groomerlaundry or dry cleaners counter clerk Pulmonary and [place] [address] [email or web address] documented in this encounter Plan of Treatment Upcoming Encounters Date Type Department Care Team (Late st Contact Info) Description 05/01/2024 11:20 AM EDT Appointment Mammography/[place] [phone] Rodney Padilla MD 05/01/2024 1:45 PM EDT Office [place] [address] Juanpablo Hernandez MD [facility] [place] [address] 05/23/2024 2:45 PM EST Clinical Support Family Medicine at [facility] [address] [place] [address] Julia Low, [facility] 01/30/2025 1:30 PM EDT Laboratory Appointment Lab at [facility] Hematology Oncology [address] [place] [address] 01/30/2025 3:[address] [place] [place] [address] Arturo Cordero MD [facility] DR HEMAT[place] [address] 01/30/2025 4:15 PM EDT Office Visit [place]ology [place] [address] Arturo Cordero MD [facility] DR HEMATOLOG[place] [address] Scheduled Orders Name Type Priority Associated Diagnoses [...] present documented in this encounter Care Teams Associate Store Director Relationship Specialty Start Date End Date Rodney Padilla MD PCP - General 07/18/22 04/09/24 documented as of this encounter
--- OUTSIDE RECORDS SUMMARY | 2024-04-15 15:48 | XMS_ITS | Encounter Summary ---
Author Organization [facility] [place] [address] Care Team Providers Care Gettering Operator Name Role Phone Rodney Padilla MD Primary Care Provider Unav ailable Reason for Visit * Reason Comments Medication Refill Encounter Details Date Type Department Care Team (Late st Contact Info) Description 08/27/2023 Refill Family Medicine at [facility] [address] [place] [phone] Rodney Padilla MD Mixed hyperlipidemia Social History [...] 05/01/2024 11:20 AM EDT Appointment Mammography/[place] [address] Rodney Padilla MD 05/01/2024 1:45 PM EDT Office Visit [place] [address] Juanpablo Hernandez MD [facility] [place] [place] [address] 05/23/2024 2:45 PM EST Clinical Support Family Medicine at [facility] [address] [place] [address] Julia Low, [facility] 01/30/2025 1:30 PM EDT Laboratory Appointment Lab at [facility] Hematology Oncology [address] [place] [address] 01/30/2025 3:[address] [place] [address] Arturo Cordero MD [facility] [address] [place] [address] 01/30/2025 4:15 PM EDT Office Visit Hematology [place] [address] Arturo Cordero MD [facility] [address] [place] [address] documented as of this encounter Visit Diagnoses Diagnosis Mixed hyperlipidemia documented in this encounter Care Teams Gettering Operator Relationship Specialty Start Date End Date Rodney Padilla MD PCP - General 07/18/22 04/09/24 documented as of this encounter
--- OUTSIDE RECORDS SUMMARY | 2024-04-15 15:48 | XMS_ITS | Encounter Summary ---
Author Organization [facility] [place] [address] Care Team Providers Care Sand Operator Name Role Phone Rodney Padilla MD [...] 05/01/2024 11:20 AM EDT Appointment Mammography/DXA at [place] [phone] Rodney Padilla MD 05/01/2024 1:45 PM EDT Office Visit Ophthalmology at [place] [phone] Juanpablo Hernandez MD [facility] [place] [place] [address] 05/23/2024 2:45 PM EST Clinical Support Family Medicine at [place] [address] [place] [address] Julia Low, [facility] 01/30/2025 1:30 PM EDT Laboratory Appointment Lab at [facility] [place]ematology Oncology [address] [place] [address] 01/30/2025 3:[address] [place] [address] Arturo Cordero MD [facility] DR [place] [address] 01/30/2025 4:15 PM EDT Office Visit [place]ology [place] [address] Arturo Cordero MD [facility] DR [place] [address] documented as of this encounter Visit Diagnoses Not on filedocumented in this encounter Care Teams Sand Operator Relationship Specialty Start Date End Date Rodney Padilla MD PCP - General 07/18/22 04/09/24 documented as of this encounter
--- OUTSIDE RECORDS SUMMARY | 2024-04-15 15:48 | XMS_ITS | Encounter Summary ---
Author Organization [facility] [place] [address] Care Team Providers Care Electric Serviceman Name Role Phone Rodney Padilla MD Primary Care Provider Unav ailable Reason for Visit * Reason Onset Date Comments Prior Authorization 07/12/2023 Dexcom G7 Se nsor Encounter Details Date Type Department Care Team (Late st Contact Info) Description 07/12/2023 Telephone Family Medicine at [facility] [address] [place] [address] Aida Aguayo, MACHINE OPERATOR HOP WORKER Prior Authorization (Dexcom G7 Sensor) Social History [...] Outcome: PA Not Needed Patient goes through [employer] for Blood Glucose Sensors and Receivers. * Telephone Encounter - Aida Aguayo CMA - 07/26/2023 9:28 AM EST Called insurance. Unable to speak with a ambulatory services representative. Resubmitted PA through [facility] Anderson: [id number] * Telephone Encounter - Arlene Palomo CMA - 07/14/2023 10:53 AM EST Images from the original note were not included. PA resubmitted to the insurance with the complete member ID number. Anderson [id number] * Telephone Encounter - Aida Aguayo CMA - 07/12/2023 8:45 AM EST PA Submitted Submitted Date: Date Submitted: 07/12/2023 Medication Prior Authorization Patient: Alize Gramajo Patient : 1960 Insurance Company: [employer] Sent via: [employer] Anderson: [id number] Physician: Rodney Padilla MD Medication Requested: Blood-Glucose Sensor (Dexcom G7 Sensor) Device Frequency/Si Device by [facility]Non-Drug; Combo Route) route every 10 days. Disp: [...] 05/01/2024 11:20 AM EDT Appointment Mammography/[place] [address] Rodney Padilla MD 05/01/2024 1:45 PM EDT Office [place] [address] Juanpablo Hernandez MD [facility] [place] [address] 05/23/2024 2:45 PM EST [facility] [address] [place] [address] Julia Low, [facility] 01/30/2025 1:30 PM EDT Laboratory Appointment Lab at [facility] Hematology Oncology [address] [place] [address] 01/30/2025 3:[address] [place] [address] Arturo Cordero MD [facility] DR HEMATOLOGY [place] [address] 01/30/2025 4:15 PM EDT Office Visit Hematology [place] [address] Arturo Cordero MD [facility] DR HEMATOLOGY [place] [address] documented as of this encounter Visit Diagnoses Not on filedocumented in this encounter Care Teams Electric Serviceman Relationship Specialty Start Date End Date Rodney Padilla MD PCP - General 07/18/22 04/09/24 documented as of this encounter
--- OUTSIDE RECORDS SUMMARY | 2024-04-15 15:48 | XMS_ITS | Encounter Summary ---
Author Organization [facility] [place] [address] Care Team Providers Care Veterinary Bacteriologist Name Role Phone Rodney Padilla MD Primary Care Provider Unav ailable Reason for Visit * Reason Comments Medication Refill Encounter Details Date Type Department Care Team (Late st Contact Info) Description 11/01/2023 Refill Family Medicine at [facility] [address] [place] [address] Rodney Padilla MD Type 2 diabetes mellitus [...] Miscellaneous Notes * Telephone Encounter - Lashon Kaur, [facility] - 11/02/2023 2:29 PM EDT Prescription Renewal [...] medication): insulin needles, disposable, 32 gauge x 5/32 Needle 10/05/2022, 100 each:11 Alcohol swab 11/07/2022, [...] 05/01/2024 11:20 AM EDT Appointment Mammography/DXA at [place] [phone] Rodney Padilla MD 05/01/2024 1:45 PM EDT Office Visit Ophthalmology at [place] [phone] Juanpablo Hernandez MD [facility] [place] [address] 05/23/2024 2:45 PM EST Clinical Support Family Medicine at [address] [phone] Julia Low, [facility] 01/30/2025 1:30 PM EDT Laboratory Appointment Lab at [facility] Hematology Oncology [address] [place] [address] 01/30/2025 3:[address] [place] [address] Arturo Cordero MD [facility] [place] [address] 01/30/2025 4:15 PM EDT Office Visit Hematology [place] [address] Arturo Cordero MD [facility] DR [place] [address] documented as of this encounter Visit Diagnoses Diagnosis Type 2 diabetes mellitus without long-term current use of insulin documented in this encounter Care Teams Veterinary Bacteriologist Relationship Specialty Start Date End Date Rodney Padilla MD PCP - General 07/18/22 04/09/24 documented as of this encounter
--- OUTSIDE RECORDS SUMMARY | 2024-04-15 15:48 | XMS_ITS | Encounter Summary ---
Author Organization [facility] [place] [address] Care Team Providers Care Watchmaker Apprentice Name Role Phone Rodney Padilla MD Primary Care Provider Unav ailable Reason for Referral * Diagnostic Test (Routine) - Closed Specialty Diagnoses / Procedures Referred By Contac t Referred To Contact Radiology Diagnoses Malignant melanoma of conjunctiva, left Procedures CT Neck Soft Tissue w Contrast (Generic) Arturo Cordero MD [facility] [address] [place] [address] [facility] [place] [address] Referral ID Status Reason Start Date Expiration Date V isits Requested Visits Authorized [id number] Closed Specialty Service Requested 12/29/2022 06/30/2024 1 1 * Diagnostic Test (Routine) - Closed Specialty Diagnoses / Procedures Referred By Contac t Referred To Contact Radiology Diagnoses Malignant melanoma of conjunctiva, left Renal cell cancer, left Procedures CT Chest Abdomen Pelvis w Contrast (Generic) Arturo Cordero MD [facility] [place] [address] [facility] [place] [address] Referral ID Status Reason Start Date Expiration Date V isits Requested Visits Authorized [id number] Closed Specialty Service Requested 12/29/2022 06/30/2024 1 1 Reason for Visit * Diagnostic Test (Routine) - Closed Specialty Diagnoses / Procedures Referred By Contac t Referred To Contact Radiology Diagnoses Malignant melanoma of conjunctiva, left Renal cell cancer, left Procedures CT Chest Abdomen Pelvis w Contrast (Generic) Arturo Cordero MD [facility] [address] [place] [address] [facility] [place] [address] Referral ID Status Reason Start Date Expiration Date V isits Requested Visits Authorized [id number] Closed Specialty Service Requested 12/29/2022 06/30/2024 1 1 Encounter Details Date Type Department Care Team (Latest Contact Info) Description 08/03/2023 7:35 AM EST - 08/03/2023 7:44 AM EST Hospital [place] [address] Arturo Cordero MD [facility] [address] [place] [address] Malignant melanoma of conjunctiva, left; [...] End Date inhalational spacing device (Hesham Aerosol Bland Enhancer) SpacerIndications:Chr onic obstructive pulmonary disease, unspecified [...] 81 mg by mouth daily. Blood-Glucose Sensor (Dexcom G7 Sensor) DeviceIndications:Typ e 2 diabetes mellitus with hyperglycemia, without long-term current use of insulin 1 Device by [facility].(Non-Drug; Combo Route) route every 10 days. 3 [...] 09/26/2022 09/19/2023 fluticasone propionate (Flonase) 50 mcg/actuation [place], Suspension 1 spray by Each Nare [...] 05/01/2024 11:20 AM EDT Appointment Mammography/[place] [address] Rodney Padilla MD 05/01/2024 1:45 PM EDT Office Visit Ophthalmology at [place] [phone] Juanpablo Hernandez MD [facility] [place] [address] 05/23/2024 2:45 PM EST Clinical Support Family Medicine at [facility] [address] [place] [address] Julia Low, [facility] 01/30/2025 1:30 PM EDT Laboratory Appointment Lab at [facility] Hematology Oncology [address] [place] [address] 01/30/2025 3:[address] Scan at [place] [phone] Arturo Cordero MD [facility] [address] [place] [address] 01/30/2025 4:15 PM EDT Office Visit Hematology [place] [address] Arturo Cordero MD [facility] [place] [address] documented as of this encounter Procedures Procedure [...] who have questions please contact the health hiv/aids care nurse that requested your imaging first. ? [...] The orbits are not included within the pzhey-kd-lzja. No masses along the visualized upper aerodigestive [...] The orbits are not included within the mjwzo-pm-gitq. No masses alongthe visualized upper aerodigestive tract. [...] patients who have questions please contactthe health hiv/aids care nurse that requested your imaging first. Electronically signed by: Zain Saxena [facility]([phone]), at 08/04/2023 9:11 AM Arturo Cordero MD [...] who have questions please contact the health hiv/aids care nurse that requested your imaging first. ? Electronically signed by: Zain Izaguirre MD, [facility] ([phone]), at 08/03/2023 4:55 PM Narrative 08/03/2023 4:55 [...] patients who have questions please contactthe health hiv/aids care nurse that requested your imaging first. Electronically signed by: Zain Izaguirre MD, [facility]([phone]), at 08/03/2023 4:55 PM Arturo Cordero MD [...] mLs documented in this encounter Care Teams Watchmaker Apprentice Relationship Specialty Start Date End Date Rodney Padilla MD PCP - General 07/18/22 04/09/24 documented as of this encounter
--- OUTSIDE RECORDS SUMMARY | 2024-04-15 15:48 | XMS_ITS | Encounter Summary ---
Author Organization [facility] [place] [address] Care Team Providers Care Financial Service Rep Name Role Phone Rodney Padilla MD Primary Care Provider Unav ailable Reason for Visit * Reason Comments Diabetes Encounter Details Date Type Department Care Team (Late st Contact Info) Description 08/03/2023 1:30 PM EST TH Visit (TeleHealth) Family Medicine at [facility] [address] [place] [address] Julia Low, [facility] Type 2 diabetes mellitus without long-term current [...] this encounter Progress Notes * Julia Low [facility] - 08/03/2023 1:30 PM EST Clinical Pharmacist [...] any of the following conditions: Yes [x] OH/Stroke/CAD [] Retinopathy [] CHF [x] Neuropathy [] [...] Provider/date: Rodney Padilla MD 06/14/21 Tamera Khan [employer] Health Beliefs and Attitudes Feelings about having [...] weekly. Uses [employer] testing supplies Has [employer] troy but has never worn and fears being unable to understand the results so elected not to try Interested in Dexcom G7, report approved by insurance. Needs to call [employer] [facility] to get an update on shipping Prior Averages: 08/26/21 09/09/21 09/24/21 11/14/21 11/03/22 12/01/22 01/03/23 Daily Avg 157 168 131 138 175 153 176 eA1c 8.78225 8.46 7.20 7.44 8.7 7.95 8.75 Acute [...] each 3 inhalational spacing device (Hesham Aerosol [place] Enhancer) Spacer 1 each by [facility]Non-Drug; Combo Route) route as needed. [...] tablet 5 fluticasone propionate (Flonase) 50 mcg/actuation [place], Suspension 1 spray by Each Nare route [...] 05/01/2024 11:20 AM EDT Appointment Mammography/[place] [address] Rodney Padilla MD 05/01/2024 1:45 PM EDT Office [place] [phone] Juanpablo Hernandez MD [facility] [place] [address] 05/23/2024 2:45 PM EST Clinical Support Family Medicine at [facility] [address] [place] [address] Julia Low RPH 01/30/2025 1:30 PM EDT Laboratory Appointment Lab at [facility] Hematology Oncology [address] [place] [address] 5[address]656 01/30/2025 3:[address] [place] [address] Arturo Cordero MD [facility] DR [place] [address] 01/30/2025 4:15 PM EDT Office Visit Hematology [place] [address] Arturo Cordero MD [facility] DR [place] [address] documented as of this encounter Visit Diagnoses Diagnosis Type 2 diabetes mellitus without long-term current use of insulin- Primary documented in this encounter Care Teams Financial Service Rep Relationship Specialty Start Date End Date Rodney Padilla MD PCP - General 07/18/22 04/09/24 documented as of this encounter
--- OUTSIDE RECORDS SUMMARY | 2024-04-15 15:48 | XMS_ITS | Encounter Summary ---
Author Organization [facility] Address [facility] [address] Care Team Providers Care Planting Material Remover Name Role Phone Rodney Padilla MD [...] AM EDT Appointment Mammography/DXA at [place] [phone] Rodney Padilla MD 05/01/2024 1:45 PM EDT Office Visit Ophthalmology at [place] [phone] Juanpablo Hernandez MD [facility] [place] [address] 05/23/2024 2:45 PM EST Clinical Support Family Medicine at [place] [address] [place] [address] Julia Low, [facility] 01/30/2025 1:30 PM EDT Laboratory Appointment Lab at [facility] Hematology Oncology [address] [place] [address] 01/30/2025 3:[address] [place] [address] Arturo Cordero MD [facility] [address] HEMATOLOGY [place] [address] 01/30/2025 4:15 PM EDT Office Visit Hematology [place] [address] Arturo Cordero MD [facility] [address] HEMATOLOGY [place] [address] documented as of this encounter Visit Diagnoses Not on filedocumented in this encounter Care Teams Planting Material Remover Relationship Specialty Start Date End Date Rodney Padilla MD PCP - General 07/18/22 04/09/24 documented as of this encounter
--- OUTSIDE RECORDS SUMMARY | 2024-04-15 15:48 | XMS_ITS | Encounter Summary ---
Author Organization [facility] [place] [address] Care Team Providers Care Out Patient Therapist Name Role Phone Rodney Padilla MD Primary Care Provider Unav ailable Encounter Details Date Type Department Care Team (Latest Contact Info) Description 08/03/2023 7:45 AM EST - 08/03/2023 11:59 PM EST Hospital Encounter Hematology [place] [address] Malignant melanoma of conjunctiva, left Discharge Disposition: [...] End Date inhalational spacing device (Hesham Aerosol [place] Enhancer) SpacerIndications:Chr onic obstructive pulmonary disease, unspecified [...] 3 mL 11 08/03/2023 10/27/2023 Blood-Glucose Sensor (DexQeexo G7 Sensor) DeviceIndications:Typ e 2 diabetes mellitus with hyperglycemia, without long-term current use of insulin 1 Device [place] [facility]Non-Drug; Combo [...] 09/26/2022 09/19/2023 fluticasone propionate (Flonase) 50 mcg/actuation [place], Suspension 1 spray by Each Nare route [...] AM EDT Appointment Mammography/[place] [phone] Rodney Padilla MD 05/01/2024 1:45 PM EDT Office [place] [address] Juanpablo Hernandez MD [facility] [place] [place] [address] 05/23/2024 2:45 PM EST Clinical Support Family Medicine at [address] [phone] Julia Low, [facility] 01/30/2025 1:30 PM EDT Laboratory Appointment Lab at [facility] Hematology Oncology [address] [place] [address] 01/30/2025 3:[address] [place] [address] Arturo Cordero MD [facility] [place] [address] 01/30/2025 4:15 PM EDT Office Visit Hematology [place] [address] Arturo Cordero MD [facility] [place] [address] documented as of this encounter Procedures Procedure [...] 7:53 AM EST) Neutrophil % 63.8 % [facility] Neutrophil Absolute 5.66 1.70 - 6.10 x10(3)/mc L [facility] Lymph % 24.1 % [facility] Lymphocytes Abs 2.1 0.9 - 3.2 x10(3)/mc L [facility] Monocyte % 8.9 % [facility] Monocyte Abs 0.8 0.3 - 0.9 x10(3)/mc L [facility] Eos % 1.8 % [facility] Eosinophils Abs 0.2 0.0 - 0.4 x10(3)/mc L [facility] Basophil % 0.8 % [facility] Baso Absolute 0.1 0.0 - 0.1 x10(3)/mc L [facility] Immature Gran % 0.60 % [facility] Comment: Immature granulocytes(IG's)percentage and absolute count will include metamyelocytes, myelocytes, and promyelocytes. Blood smears from CBCs yielding IG's will be scanned manually for concordance. If this scan disagrees with the automated IG or if promyelocytes are noted, a manual differential will be performed. Immature Gran Absolute 0.05(H) 0.00 - 0.04 x10(3)/mc L [facility] Blood 08/03/2023 7:53 AM EST 08/03/2023 8:53 AM EST Narrative Resulting Agency Comment Spec In Lab Arturo Cordero MD HEMATOLOGY ORDERABLE S [facility] [place] [address] * (ABNORMAL) Hemogram (08/03/2023 7:53 AM EST) White Blood Cell 8.9 4.0 - 9.5 x10(3)/mc L [facility] Red Blood Cell 4.61 4.00 - 5.21 x10(6)/mc L [facility] Hemoglobin 13.0 11.7 - 15.5 g/dL [facility] Hematocrit 39.3 35.7 - 45.8 % [facility] Mean Cell Volume 85.2 82.6 - 94.4 fL [facility] Mean Cell Hemoglobin 28.2 27.1 - 32.0 pg [facility] Mean Cell Hemoglobin Concentration 33.1 31.7 - 35.0 g/dL [facility] Platelet 389(H) 145 - 357 x10(3)/mc L [facility] RDW Standard Deviation 46.1(H) 37.0 - 46.0 fL [facility] RDW coefficient of variation 14.8(H) 11.5 - 14.1 % [facility] Mean Platelet Volume 9.3 7.6 - 12.9 fL [facility] NRBC% auto 0.0 % [facility] NRBC Absolute 0.000 0.000 - 0.000 x10(3)/mc L [facility] Blood 08/03/2023 7:53 AM EST 08/03/2023 8:53 AM EST Narrative Resulting Agency Comment Spec In Lab Arturo Cordero MD HEMATOLOGY ORDERABLE S [facility] [place] [address] * (ABNORMAL) Comprehensive metabolic panel (non-fasting) (08/03/2023 7:53 AM EST) Glucose 254(H) 65 - 199 mg/dL [facility] Comment:Diabetes: >=200 mg/d L plus symptoms Blood Urea Nitrogen 17 8 - 18 mg/dL [facility] Creatinine 0.82 0.70 - 1.20 mg/dL [facility] Sodium 140 135 - 145 mmol/L [facility] Potassium 4.9 3.5 - 5.0 mmol/L [facility] Comment: Please note: ??Patients with WBC >100,000 may have falsely elevated Potassium levels. ??For accurate Potassium quantification in these patients send serum separator tube (gold top) for subsequent determinations. ??Contact the Clinical Chemistry Laboratory if there are any questions. Chloride 103 98 - 107 mmol/L [facility] Carbon Dioxide 27 22 - 31 mmol/L [facility] Anion Gap 10 5 - 15 mmol/L [facility] Calcium 9.5 8.5 - 10.5 mg/dL [facility] Protein, Total 6.9 6.1 - 8.0 g/dL [facility] Albumin 4.3 3.2 - 5.2 g/dL [facility] Aspartate Aminotransferase 19 0 - 30 unit/L [facility] Alanine Aminotransferase 26 0 - 30 unit/L [facility] Alkaline Phosphatase 101 35 - 105 unit/L [facility] Bilirubin, Total 0.3 0.2 - 1.3 mg/dL [facility] Est Glomerular Filtration Rate 80 >=60 mL/min/1. 73 m?? [facility] Comment: This patient's estimated GFR [...] In Lab Arturo Cordero MD CHEMISTRY ORDERABLES [facility] [place] [address] * Lactate Dehydrogenase (08/03/2023 7:53 AM EST) Lactate Dehydrogenase 218 110 - 220 unit/L [facility] Blood 08/03/2023 7:53 AM EST 08/03/2023 9:46 AM EST Narrative Resulting Agency Comment Spec In Lab Arturo Cordero MD CHEMISTRY ORDERABLES Performing Organization Address City/State/[facility] Co de Phone Number [facility] [place] [address] documented in this encounter Visit Diagnoses Diagnosis Malignant melanoma of conjunctiva, left documented in this encounter Care Teams Out Patient Therapist Relationship Specialty Start Date End Date Rodney Padilla MD PCP - General 07/18/22 04/09/24 documented as of this encounter
--- OUTSIDE RECORDS SUMMARY | 2024-04-15 15:48 | XMS_ITS | Encounter Summary ---
Author Organization [facility] Address [facility] [place] [address] Care Team Providers Care Ticket Puller Name Role Phone Rodney Padilla MD [...] 05/01/2024 11:20 AM EDT Appointment Mammography/DXA at [place] [phone] Rodney Padilla MD 05/01/2024 1:45 PM EDT Office Visit Ophthalmology at [place] [phone] Juanpablo Hernandez MD [facility] [place] [address] 05/23/2024 2:45 PM EST Clinical Support Family Medicine at [place] [address] [place] [address] Julia Low, [facility] 01/30/2025 1:30 PM EDT Laboratory Appointment Lab at [facility] Hematology Oncology [address] [place] [address] 01/30/2025 3:[address] [place] [address] Arturo Cordero MD [facility] DR HEMATOLOGY [place] [address] 01/30/2025 4:15 PM EDT Office Visit Hematology [place] [address] Arturo Cordero MD [facility] DR HEMATOLOGY [place] [address] documented as of this encounter Visit Diagnoses Not on filedocumented in this encounter Care Teams Ticket Puller Relationship Specialty Start Date End Date Rodney Padilla MD PCP - General 07/18/22 04/09/24 documented as of this encounter
--- OUTSIDE RECORDS SUMMARY | 2024-04-15 15:48 | XMS_ITS | Encounter Summary ---
Author Organization [facility] [place] [address] Care Team Providers Care Marketing Sales Manager Name Role Phone Rodney Padilla MD Primary Care Provider Unav ailable Reason for Visit * Reason Comments Melanoma Malignant melanoma o f conjunctiva, left Encounter Details Date Type Department Care Team (Late st Contact Info) Description 07/26/2023 12:30 PM EST Office Visit [place] [address] Juanpablo Hernandez MD [facility] [place] [place] [address] Malignant melanoma of conjunctiva, left; Type 2 [...] 05/01/2024 11:20 AM EDT Appointment Mammography/[place] [address] Rodney Padilla MD 05/01/2024 1:45 PM EDT Office Visit Ophthalmology at [place] [phone] Juanpablo Hernandez MD [facility] [place] [place] [address] 05/23/2024 2:45 PM EST Clinical Support Family Medicine at [facility] [address] [place] [phone] Julia Low, [facility] 01/30/2025 1:30 PM EDT Laboratory Appointment Lab at [facility] Hematology Oncology [address] [place] [address] 01/30/2025 3:[address] [place] [phone] Arturo Cordero MD [facility] [place] [address] 01/30/2025 4:15 PM EDT Office Visit Hematology [place] [address] Arturo Cordero MD [facility] [place] [address] documented as of this encounter Visit Diagnoses Diagnosis Malignant melanoma of conjunctiva, left Type 2 diabetes mellitus without long-term current use of insulin documented in this encounter Care Teams Marketing Sales Manager Relationship Specialty Start Date End Date Rodney Padilla MD PCP - General 07/18/22 04/09/24 documented as of this encounter
--- OUTSIDE RECORDS SUMMARY | 2024-04-15 15:48 | XMS_ITS | Encounter Summary ---
Author Organization [facility] [place] [address] Care Team Providers Care Reconditioning Associate Name Role Phone Rodney Padilla MD Primary Care Provider Unav ailable Encounter Details Date Type Department Care Team (Late st Contact Info) Description 08/29/2023 2:15 PM EST Office Visit Sleep Center at [facility] [address] [place] [address] Samantha Cadet, HEAVY COIL WINDER TITO on CPAP Social History Tobacco Use [...] in this encounter Progress Notes * Samantha Cadet, ASHTYN - 08/29/2023 2:15 PM EST Sleep Medicine Clinical Health Specialist Brief Follow-Up Note HPI: Ms. Alize Gramajo is a 62 y.o. female seen for follow-up of obstructive sleep apnea. She has a history of CAD,malignant neoplasm of kidney, asthma, COPD, Diabetes, HTN, [place], dry mouth, left eye,and mental health problem. [...] Breathing:yes Symptom Benefit: more rested with CPAP Jet:QSLEEPRESPONSES@Patient-reported last 4 scores: 05/07/2019 6:23 PM 05/09/2019 11:11 AM 04/13/2022 12:14 PM 08/29/2023 1:41 PM [facility] Jet Sleep 7 (Low Risk) 10 (High Risk) [...] if drowsy, if drowsy while driving to puller through and take a nap. 4) Patient to [...] 05/01/2024 11:20 AM EDT Appointment Mammography/DXA at [place] [phone] Rodney Padilla MD 05/01/2024 1:45 PM EDT Office Visit Ophthalmology at [place] [phone] Juanpablo Hernandez MD [facility] [place] [address] 05/23/2024 2:45 PM EST Clinical Support Family Medicine at [address] [phone] Julia Low [facility] 01/30/2025 1:30 PM EDT Laboratory Appointment Lab at [facility] Hematology Oncology [address] [place] [id number] 01/30/2025 3:[address] [place] [address] Arturo Cordero MD [facility] HEMATOLOGY [place] [address] 01/30/2025 4:15 PM EDT Office Visit Hematology [place] [phone] Arturo Cordero MD [facility] HEMATOLOGY [place] [address] documented as of this encounter Visit Diagnoses Diagnosis TITO on CPAP Obstructive sleep apnea (adult) (pediatric) documented in this encounter Care Teams Reconditioning Associate Relationship Specialty Start Date End Date Rodney Padilla MD PCP - General 07/18/22 04/09/24 documented as of this encounter
--- OUTSIDE RECORDS SUMMARY | 2024-04-15 15:48 | XMS_ITS | Encounter Summary ---
Author Organization [facility] Address One [facility] [place] [address] Care Team Providers Care Jordan Man Name Role Phone Rodney Padilla MD Primary Care Provider Unav ailable Encounter Details Date Type Department Care Team (Late st Contact Info) Description 08/10/2023 Telephone Family Medicine at [address] [place] [address] Rodney Padilla MD Social History Tobacco Use [...] Patient identified by Full Name and with [facility] staff. Provided update that this RN would be faxing Clinic Notes documenting information they requested about patient's insulin. Previously given fax number [phone] in this message not correct when attempted to confirm withstaff. New fax number given = [phone]. Requested Clinic Notes faxed to new fax number. Reference Number = [id number] * Telephone Encounter - Ade Irene - 08/10/2023 3:02 PM EST Maryana with [employer] calling in looking for an update on this. Please call back to discuss. * Telephone Encounter - Jade Kruse MA - 08/10/2023 12:33 PM EST Copied from [facility] #[id number]. Topic: Generic Non-Symptom Based - Generic Call >> Aug 08, 2023 1:00 PM Kalie Stone wrote: Reason: DME PCP: RODNEY PADILLA Reason for Call: [employer] sent request on 08/04 for notes to document patient using insulin, needs an addendum sent stating she uses Lantus Solostar U-100 Insulin 100 unit/mL (3 mL) pen needs more than just a medication list needs it to be in the notes, can be faxed back to fax # [phone] documented in this encounter Plan of Treatment Upcoming Encounters Date Type Department Care Team (Late st Contact Info) Description 05/01/2024 11:20 AM EDT Appointment Mammography/DXA at [place] [phone] Rodney Padilla MD 05/01/2024 1:45 PM EDT Office Visit Ophthalmology at [place] [phone] Juanpablo Hernandez MD [facility] OPHTHALMOLOGY [place] [address] 05/23/2024 2:45 PM EST Clinical Support Family Medicine at [address] [phone] Julia Low, [facility] 01/30/2025 1:30 PM EDT Laboratory Appointment Lab at [facility] Hematology Oncology [address] [place] [address] 01/30/2025 3:[address] [place] [address] Arturo Cordero MD [facility] HEMATOLOGY AND [place] [address] 01/30/2025 4:15 PM EDT Office Visit Hematology [place] [address] Arturo Cordero MD [facility] DR HEMATOLOGY AND [place] [address] documented as of this encounter Visit Diagnoses Diagnosis Type 2 diabetes mellitus without long-term current use of insulin documented in this encounter Care Teams Jordan Man Relationship Specialty Start Date End Date Rodney Padilla MD PCP - General 07/18/22 04/09/24 documented as of this encounter
--- OUTSIDE RECORDS SUMMARY | 2024-04-15 15:48 | XMS_ITS | Encounter Summary ---
Author Organization [facility] [place] [address] Care Team Providers Care Sprinkler Fitter Helper Name Role Phone Rodney Padilla MD Primary Care Provider Unav ailable Reason for Visit * Reason Comments Medication Refill Encounter Details Date Type Department Care Team (Late st Contact Info) Description 09/25/2023 Refill Family Medicine at [facility] [address] [place] [phone] Rodney Padilla MD Social History Tobacco Use [...] Disp Refills fluticasone propionate (Flonase) 50 mcg/actuation [place], Suspension [Pharmacy Med Name: FLUTICASONEPROP 50 MCG [...] 05/01/2024 11:20 AM EDT Appointment Mammography/DXA at [place] [phone] Rodney Padilla MD 05/01/2024 1:45 PM EDT Office Visit Ophthalmology at [place] [phone] Juanpablo Hernandez MD [facility] [place] [address] 05/23/2024 2:45 PM EST Clinical Support Family Medicine at [facility] [address] [place] [phone] Julia Low, [facility] 01/30/2025 1:30 PM EDT Laboratory Appointment Lab at [facility] Hematology Oncology [address] [place] [address] 01/30/2025 3:[address] [place] [address] Arturo Cordero MD [facility] DR HEMATOLOGY [place] [address] 01/30/2025 4:15 PM EDT Office Visit Hematology [place] [address] Arturo Cordero MD [facility] DR HEMATOLOGY [place] [address] documented as of this encounter Visit Diagnoses Not on filedocumented in this encounter Care Teams Sprinkler Fitter Helper Relationship Specialty Start Date End Date Rodney Padilla MD PCP - General 07/18/22 04/09/24 documented as of this encounter
--- OUTSIDE RECORDS SUMMARY | 2024-04-15 15:48 | XMS_ITS | Encounter Summary ---
Author Organization [facility] [place] [address] Care Team Providers Care Set Up / Operator Name Role Phone Rodney Padilla MD Primary Care Provider Unav ailable Reason for Visit * Reason Comments Diabetes Encounter Details Date Type Department Care Team (Late st Contact Info) Description 10/27/2023 9:45 AM EDT TH Visit (TeleHealth) Family Medicine at [facility] [address] [place] [phone] Julia Low, [facility] Type 2 diabetes mellitus without long-term current [...] Progress Notes * Julia Low RP - 10/27/2023 9:45 AM EDT Clinical Pharmacist [...] any of the following conditions: Yes [x] OR/Stroke/CAD [] Retinopathy [] CHF [x] Neuropathy [] [...] Provider/date: Rodney Padilla MD 06/14/21 Tamera Khan 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 1-2 x daily. Uses [employer] testing supplies Interested in Dexcom G7, report approved by insurance. Received Dexcom G7 CGM through [employer]. Has not set up Offered clinic appt to set up but pt declined as she will not be in the area for a month but she agrees to reach out to local work and family life consultant who assisted her in the past Before Brkfast Before Lunch After Lunch Before Supper 1-Oct 194 186 116 2-Apr 155 160 3-Apr 124 175 4-Apr 156 135 5-Apr 152 130 6-Apr 153 93 7-Apr 139 8-Apr 158 9-Oct 168 121 10-Oct 164 133 11-Apr 161 96 12-Oct 136 13-Apr 161 176 14-Apr 153 166 15-Apr 163 16-Apr 194 191 17-Apr 123 18-Apr 166 160 AM PHI PM Average 159 157 163 136 Lowest 123 133 135 93 Highest 194 186 191 176 Daily Avg 152 eA1c 7.225889 Prior Averages: 2/17/09/09/21 09/24/21 11/14/21 11/03/22 12/01/22 01/03/23 08/18/23 Daily Avg 157 168 131 138 175 153 176 211 eA1c 8.20004 8.46 7.20 7.44 8.7 7.95 8.75 9.96 [...] or during use. 100 each 3 fluticasone txyfukc-emkckckhoxcd-dpdivaognd (Trelegy Ellipta) 200-62.5-25 mcg Inhale 1 puff into the lungs daily. Rinse mouth after use 1 each 11 fluticasone propionate (Flonase) 50 mcg/actuation [place], Suspension SPRAY 1 SPRAY IN EACH NOSTRIL TWO TIMES A DAY 48 mL 3 lamoTRIgine (LaMICtal) 150 mg tablet Take 150 mg by mouth Daily at Noon. simvastatin (Zocor) 10 mg tablet TAKE ONE TABLET BY MOUTH EVERY DAY 90 tablet 1 Blood-Glucose Meter,Continuous (Dexcom G7 Top Stitcher) Misc 1 Device by [facility].(Non- Drug; Combo Route) route [...] mL 11 inhalational spacing device (Hesham Aerosol [place] Enhancer) Spacer 1 each by Misc.(Non-Drug; Combo [...] 05/01/2024 11:20 AM EDT Appointment Mammography/[place] [address] Rodney Padilla MD 05/01/2024 1:45 PM EDT [place] [address] Juanpablo Hernandez MD [facility] [place] [address] 05/23/2024 2:45 PM EST Clinical Support Family Medicine at [facility] [address] [place] [address] Julia Low RPH 01/30/2025 1:30 PM EDT Laboratory Appointment Lab at [facility] Hematology Oncology [address] [place] [address] 01/30/2025 3:[address] [place] [place] [address] Arturo Cordero MD [facility] [address] HEMATOLOGY [place] [address] 01/30/2025 4:15 PM EDT Office Visit [place]ology [place] [address] Arturo Cordero MD [facility] [address] HEMATOLOGY [place] [address] documented as of this encounter Visit Diagnoses Diagnosis Type 2 diabetes mellitus without long-term current use of insulin- Primary documented in this encounter Care Teams Set Up / Operator Relationship Specialty Start Date End Date Rodney Padilla MD PCP - General 07/18/22 04/09/24 documented as of this encounter
--- OUTSIDE RECORDS SUMMARY | 2024-04-15 15:48 | XMS_ITS | Encounter Summary ---
Author Organization [facility] [address] Care Team Providers Care Doping Supervisor Name Role Phone Rodney Padilla MD Primary Care Provider Unav ailable Reason for Referral * Diagnostic Test (Routine) - Closed Specialty Diagnoses / Procedures Referred By Contac t Referred To Contact Radiology Diagnoses Malignant melanoma of conjunctiva, left Procedures CT Neck Soft Tissue w Contrast (Generic) Tee Lara MD [facility] DR HEMATOLOGY/[place] [address] [facility] [place] [address] Referral ID Status Reason Start Date Expiration Date V isits Requested Visits Authorized [id number] Closed Specialty Service Requested 08/03/2023 01/31/2025 1 1 * Diagnostic Test (Routine) - Closed Specialty Diagnoses / Procedures Referred By Contac t Referred To Contact Radiology Diagnoses Malignant melanoma of conjunctiva, left Procedures CT Chest Abdomen Pelvis w Contrast (Generic) Tee Lara MD [facility] DR HEMATOLOGY/[place] [address] [facility] [place] [address] Referral ID Status Reason Start Date Expiration Date V isits Requested Visits Authorized [id number] Closed Specialty Service Requested 08/03/2023 01/31/2025 1 1 Reason for Visit * Reason Comments Follow-up Encounter Details Date Type Department Care Team (Late st Contact Info) Description 08/03/2023 10:15 AM EST Office Visit [place]ematology [place] [address] Arturo Cordero MD [facility] [place] [address] Nidhi Ceballos APRN [facility] [place] [place] [address] Malignant melanoma of conjunctiva, left; Renal cell [...] from the original note were not included. [facility] NOTE REFERING PHYSICIAN: Dr. Juanpablo Hernandez [...] management - fall 2018: saw a new imaging scheduler and was referred to Dr. 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 Medina - 03/31/2020: saw her imaging scheduler Dr. Hernandez and was noted to have [...] Asthma uses inhalerswith good effect Atherosclerosis of [place] coronary artery of [place] heart with angina pectoris 10/09/2007 History of [...] performed by Juanpablo Hernandez MD at [facility] OSC PRO EXCIS CORNEA LESN Left 05/14/2020 EXCISION OF LESION, CORNEA, EXCEPT PTERYGIUM (WRVU 7.5) performed by Juanpablo Hernandez MD at [facility] OSC PRO LAP, PARTIAL NEPHRECTOMY Left 06/28/2019 LAPAROSCOPY, PARTIAL NEPHRECTOMY, ROBOTIC ASSIST (WRVU 27.41) performed by Avila Medina MD at [facility] MAIN OR PRO PLACE AMNIOTIC MEMBRANE OCULAR SURFACE;SINGLE LAYER SUTURED Left 05/14/2020 PLACEMENT OF AMNIOTIC MEMBRANE ON THE OCULAR SURFACE,SINGLE LAYER,SUTURED (WRVU 2.5) performed by Juanpablo Hernandez MD at 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 [place] [place] [address] 05/23/2024 2:45 PM EST Clinical Support Family Medicine at [address] [place] [address] Julia Low [facility] 01/30/2025 1:30 PM EDT Laboratory Appointment Lab at [facility] Hematology Oncology [address] [place] [address] 01/30/2025 3:[address] [place] [place] [address] Arturo Cordero MD [facility] [place] [address] 01/30/2025 4:15 PM EDT Office Visit Hematology [place] [address] Arturo Cordero MD [facility] [place] [address] documented as of this encounter Results * CT Neck Soft Tissue w Contrast (Generic) (02/01/2024 10:24 AM EDT) WORKSTATION ID [id number] [facility] Anatomical Region Laterality Modality Neck, Head Computed [...] questions please contact the health critical care educator that requested your imaging first. ? Electronically signed by: Dipika Palacios [facility] ([phone]), at 02/02/2024 4:32 PM Narrative 02/02/2024 4:32 [...] have questions please contactthe health critical care educator that requested your imaging first. Arturo Cordero MD IMG CT ORDERABLES * CT Chest Abdomen Pelvis w Contrast (Generic) (02/01/2024 10:24 AM EDT) WORKSTATION ID [id number] RAD Anatomical Region Laterality Modality Abdomen, Pelvis [...] questions please contact the health critical care educator that requested your imaging first. ? Electronically signed by: Leo Camilo MD, [facility] ([phone]), at 02/02/2024 9:52 AM Narrative 02/02/2024 9:52 [...] have questions please contactthe health critical care educator that requested your imaging first. Arturo Cordero MD IMG CT ORDERABLES * Lactate Dehydrogenase (02/01/2024 8:19 AM EDT) Lactate Dehydrogenase 195 110 - 220 unit/L [facility] Blood 02/01/2024 8:19 AM EDT 02/01/2024 8:39 AM EDT Narrative Resulting Agency Comment Spec In Lab Arturo Cordero MD CHEMISTRY ORDERABLES [facility] [place] [place] [address] * Comprehensive metabolic panel (non-fasting) (02/01/2024 8:19 AM EDT) Glucose 162 65 - 199 mg/dL [facility] Comment:Diabetes: >=200 mg/d L plus symptoms Blood Urea Nitrogen 14 8 - 18 mg/dL [facility] Creatinine 0.90 0.70 - 1.20 mg/dL [facility] Sodium 140 135 - 145 mmol/L [facility] Potassium 4.7 3.5 - 5.0 mmol/L [facility] Comment: Please note: ??Patients with WBC >100,000 may have falsely elevated Potassium levels. ??For accurate Potassium quantification in these patients send serum separator tube (gold top) for subsequent determinations. ??Contact the Clinical Chemistry Laboratory if there are any questions. Chloride 105 98 - 107 mmol/L [facility] Carbon Dioxide 25 22 - 31 mmol/L [facility] Anion Gap 10 5 - 15 mmol/L [facility] Calcium 9.4 8.5 - 10.5 mg/dL [facility] Protein, Total 6.8 6.1 - 8.0 g/dL [facility] Albumin 4.2 3.2 - 5.2 g/dL [facility] Aspartate Aminotransferase 21 0 - 30 unit/L [facility] Alanine Aminotransferase 28 0 - 30 unit/L [facility] Alkaline Phosphatase 92 35 - 105 unit/L [facility] Bilirubin, Total 0.3 0.2 - 1.3 mg/dL [facility] Est Glomerular Filtration Rate 71 >=60 mL/min/1. 73 m?? [facility] Comment: This patient's estimated [...] In Lab Arturo Cordero MD [place] [address] documented in this encounter Visit Diagnoses Diagnosis Malignant melanoma of conjunctiva, left Renal cell cancer, left Lung nodule Solitary pulmonary nodule Malignant melanoma of conjunctiva, left documented in this encounter Care Teams Doping Supervisor Relationship Specialty Start Date End Date Rodney Padilla MD PCP - General 07/18/22 04/09/24 documented as of this encounter
--- OUTSIDE RECORDS SUMMARY | 2024-04-15 15:48 | XMS_ITS | Encounter Summary ---
Author Organization [facility] Address One [facility] [place] [address] Care Team Providers Care Compressed Yeast Supervisor Name Role Phone Rodney Padilla MD [...] 05/01/2024 11:20 AM EDT Appointment Mammography/DXA at [place] [phone] Rodney Padilla MD 05/01/2024 1:45 PM EDT Office Visit Ophthalmology at [place] [phone] Juanpablo Hernandez MD [facility] [place] [address] 05/23/2024 2:45 PM EST Clinical Support Family Medicine at [place] [address] [place] [address] Julia Low, [facility] 01/30/2025 1:30 PM EDT Laboratory Appointment Lab at [facility] Hematology Oncology [address] [place] [address] 01/30/2025 3:[address] [place] [address] Arturo Cordero MD [facility] [place] [address] 01/30/2025 4:15 PM EDT Office Visit Hematology [place] [address] Arturo Cordero MD [facility] [place] [address] documented as of this encounter Visit Diagnoses Not on filedocumented in this encounter Care Teams Compressed Yeast Supervisor Relationship Specialty Start Date End Date Rodney Padilla MD PCP - General 07/18/22 04/09/24 documented as of this encounter
--- OUTSIDE RECORDS SUMMARY | 2024-04-15 15:48 | XMS_ITS | Encounter Summary ---
Author Organization [facility] Address [facility] [place] [address] Care Team Providers Care Guard Immigration Name Role Phone Rodney Padilla MD Primary Care Provider Unav ailable Encounter Details Date Type Department Care Team (Late st Contact Info) Description 08/11/2023 Orders Only Hematology [place] [address] Arturo Cordero MD [facility] HEMATOLOGY [place] [address] Social History Tobacco Use Types Packs/Day Years [...] EDT Appointment Mammography/[place] [address] Rodney Padilla MD 05/01/2024 1:45 PM EDT Office [place] [address] Juanpablo Hernandez MD [facility] [place] [address] 05/23/2024 2:45 PM EST Clinical Support Family Medicine at [facility] [address] [place] [address] Julia Low [facility] 01/30/2025 1:30 PM EDT Laboratory Appointment Lab at [facility] Hematology Oncology [address] [place] [address] 01/30/2025 3:[address] [place] [address] Arturo Cordero MD [facility] DR HEMATOLOGY [place] [address] 01/30/2025 4:15 PM EDT Office Visit Hematology [place] [address] Arturo Cordero MD [facility] DR HEMATOLOGY [place] [address] documented as of this encounter Visit Diagnoses Not on filedocumented in this encounter Care Teams Guard Immigration Relationship Specialty Start Date End Date Rodney Padilla MD PCP - General 07/18/22 04/09/24 documented as of this encounter
--- OUTSIDE RECORDS SUMMARY | 2024-04-15 15:49 | XMS_ITS | Encounter Summary ---
Author Organization [facility] [place] [address] Care Team Providers Care Director Of Product Marketing Name Role Phone Rodney Padilla MD Primary Care Provider Unav ailable Reason for Visit * Reason Onset Date Comments Medication Refill 06/16/2023 Encounter Details Date Type Department Care Team (Late st Contact Info) Description 06/16/2023 Telephone Family Medicine at [facility] [address] [place] [address] Rodney Padilla MD Medication Refill Social History Tobacco Use Types [...] pharmacy 03/2023 #90 with 3 refills. My [employer] message sent to patient to check with [...] Rodney Padilla MD Pharmacy Name & Location: [facility] [address] [phone] Caller would like clinic to reach out to the Pharmacy: yes Patient declined scheduling an appointment: no Ask caller their first and last name and relationship to the patient: self Best time to call back: yes Ok to leave a message: yes Ok to send [facility] message: yes Did you contact your pharmacy: yes Patient called stating the pharmacy does not have any extra refills for her. documented in this encounter Plan of Treatment Upcoming Encounters Date Type Department Care Team (Late st Contact Info) Description 05/01/2024 11:20 AM EDT Appointment Mammography/DXA at [place] [phone] Rodney Padilla MD 05/01/2024 1:45 PM EDT Office Visit Ophthalmology at [place] [phone] Juanpablo Hernandez MD [facility] [place] [address] 05/23/2024 2:45 PM EST Clinical Support Family Medicine at [address] [phone] Julia Low, [facility] 01/30/2025 1:30 PM EDT Laboratory Appointment Lab at [facility] Hematology Oncology [address] [place] [address] 01/30/2025 3:[address] [place] [address] Arturo Cordero MD [facility] [place] [address] 01/30/2025 4:15 PM EDT Office Visit Hematology [place] [address] Arturo Cordero MD [facility] DR [place] [address] documented as of this encounter Visit Diagnoses Not on filedocumented in this encounter Care Teams Director Of Product Marketing Relationship Specialty Start Date End Date Rodney Padilla MD PCP - General 07/18/22 04/09/24 documented as of this encounter
--- OUTSIDE RECORDS SUMMARY | 2024-04-15 15:49 | XMS_ITS | Encounter Summary ---
Author Organization [facility] [place] [address] Care Team Providers Care Health Services Director Name Role Phone Rodney Padilla MD Primary Care Provider Unav ailable Reason for Visit * Reason Comments Eye Problem Encounter Details Date Type Department Care Team (Late st Contact Info) Description 02/22/2023 12:45 PM EDT Office [place] [address] Juanpablo Hernandez MD [facility] [place] [address] Malignant melanoma of conjunctiva, left Social History [...] 05/01/2024 11:20 AM EDT Appointment Mammography/[place] [address] Rodney Padilla MD 05/01/2024 1:45 PM EDT Office [place] [address] Juanpablo Hernandez MD [facility] [place] [address] 05/23/2024 2:45 PM EST Clinical Support Family Medicine at [facility] [address] [place] [address] Julia Low, [facility] 01/30/2025 1:30 PM EDT Laboratory Appointment Lab at [facility] Hematology Oncology [address] [place] [address] 01/30/2025 3:[address] [place] [address] Arturo Cordero MD [facility] DR [place]AT[place] [address] 01/30/2025 4:15 PM EDT Office Visit Hematology [place] [address] Arturo Cordero MD [facility] DR [place]EMATOLOG[place] [address] documented as of this encounter Procedures Procedure [...] left documented in this encounter Care Teams Health Services Director Relationship Specialty Start Date End Date Rodney Padilla MD PCP - General 07/18/22 04/09/24 documented as of this encounter
--- OUTSIDE RECORDS SUMMARY | 2024-04-15 15:49 | XMS_ITS | Encounter Summary ---
Author Organization [facility] [place] [address] Care Team Providers Care Correctional Program Officer Name Role Phone Rodney Padilla MD Primary Care Provider Unav ailable Reason for Visit * Reason Onset Date Comments Medication Refill 06/13/2023 Encounter Details Date Type Department Care Team (Late st Contact Info) Description 06/13/2023 Refill Family Medicine at [facility] [address] [place] [address] Rodney Padilla MD Essential hypertension Social History [...] Rodney Padilla MD [facility] [address] [place] [address] Caller would like clinic to reach out [...] 05/01/2024 11:20 AM EDT Appointment Mammography/[place] [phone] Rodney Padilla MD 05/01/2024 1:45 PM EDT Office [place] [address] Juanpablo Hernandez MD [facility] [place] [address] 05/23/2024 2:45 PM [facility] Clinical Support Family Medicine at [facility] [address] [place] [address] Julia Low, [facility] 01/30/2025 1:30 PM EDT Laboratory Appointment Lab at [facility] Hematology Oncology [address] [place] [address] 01/30/2025 3:[address] [place] [address] Arturo Cordero MD [facility] [address] [place] [address] 01/30/2025 4:15 PM EDT Office Visit Hematology [place] [address] Arturo Cordero MD [facility] [address] [place] [address] documented as of this encounter Visit Diagnoses Diagnosis Essential hypertension Unspecified essential hypertension documented in this encounter Care Teams Correctional Program Officer Relationship Specialty Start Date End Date Rodney Padilla MD PCP - General 07/18/22 04/09/24 documented as of this encounter
--- OUTSIDE RECORDS SUMMARY | 2024-04-15 15:49 | XMS_ITS | Encounter Summary ---
Author Organization [facility] [address] Care Team Providers Care Anhydrous Ammonia Production Supervisor Name Role Phone Rodney Padilla MD Primary Care Provider Unav ailable Reason for Visit * Reason Onset Date Comments Diabetes 05/29/2023 Encounter Details Date Type Department Care Team (Late st Contact Info) Description 05/29/2023 9:45 AM EST Telephone Family Medicine at [facility] [address] [place] [address] Julia Low, [facility] Diabetes Social History Tobacco Use Types Packs/Day [...] withthis caller. Also is following with a change release manager but admits her BGs are not currently [...] Low RPH Visit Type: Telephone Call & [facility] message Subjective: Patient ID: Alize Gramajo is a 62 y.o. female. Phone call completed today for medication follow up. Caller: patient Reason for call: reivew repeated A1c result, reconnect for DM followup LVM and sent [facility] message requesting pt return call to reschedule [...] 11:20 AM EDT Appointment Mammography/[place] [address] Rodney Padilla MD 05/01/2024 1:45 PM EDT Office [place] [address] Juanpablo Hernandez MD [facility] [place] [address] 05/23/2024 2:45 PM EST Clinical Support Family Medicine at [facility] [address] [place] [address] Julia Low RPH 01/30/2025 1:30 PM EDT Laboratory Appointment Lab at [facility] Hematology Oncology [address] [place] [address] 01/30/2025 3:[address] [place] [address] Arturo Cordero MD [facility] DR [place] [address] 01/30/2025 4:15 PM EDT Office Visit Hematology [place] [address] Arturo Cordero MD [facility] DR [place] [address] documented as of this encounter Visit Diagnoses Not on filedocumented in this encounter Care Teams Anhydrous Ammonia Production Supervisor Relationship Specialty Start Date End Date Rodney Padilla MD PCP - General 07/18/22 04/09/24 documented as of this encounter
--- OUTSIDE RECORDS SUMMARY | 2024-04-15 15:49 | XMS_ITS | Encounter Summary ---
Author Organization [facility] [place] [address] Care Team Providers Care Fruit Harvester Machine Operator Name Role Phone Rodney Padilla MD Primary Care Provider Unav ailable Reason for Visit * Reason Onset Date Comments Medication Refill 05/24/2023 Encounter Details Date Type Department Care Team (Late st Contact Info) Description 05/24/2023 Refill Family Medicine at [facility] [address] [place] [address] Rodney Padilla MD Social History Tobacco Use [...] Telephone Encounter - Lucien Moore CMA - 05/24/2023 11:39 AM EST Prescription Renewal Request Name: Alize J Avila : 1960 Prescription(s) Requested: Requested Prescriptions Pending [...] reach out to the Pharmacy: Pearl Pandey [address] [place] [address] Patient declined scheduling an appointment: 06/20/23 next appt Ask caller their first and last name and relationship to the patient: self Best time to call back: any Ok to leave a message: Ok to send [facility] message: Did you contact your pharmacy: Patient states pharmacy says no more refills documented in this encounter Plan of Treatment Upcoming Encounters Date Type Department Care Team ([facility] Contact Info) Description 05/01/2024 11:20 AM EDT Appointment Mammography/[place] [address] Rodney Padilla MD 05/01/2024 1:45 PM EDT Office [place] [address] Juanpablo Hernandez MD [facility] [place] [address] 05/23/2024 2:45 PM EST Clinical Support Family Medicine at [facility] [address] [place] [address] Julia Low, [facility] 01/30/2025 1:30 PM EDT Laboratory Appointment Lab at [facility] Hematology Oncology [address] [place] [address] 01/30/2025 3:[address] [place] [address] Arturo Cordero MD [facility] [address] [place] [address] 01/30/2025 4:15 PM EDT Office Visit Hematology [place] [address] Arturo Cordero MD [facility] [place] [address] documented as of this encounter Visit Diagnoses Not on filedocumented in this encounter Care Teams Fruit Harvester Machine Operator Relationship Specialty Start Date End Date Rodney Padilla MD PCP - General 07/18/22 04/09/24 documented as of this encounter
--- OUTSIDE RECORDS SUMMARY | 2024-04-15 15:49 | XMS_ITS | Encounter Summary ---
[place] [address] Care Team Providers Care Crm Marketing Specialist Name Role Phone Rodney Padilla MD Primary Care Provider Unav ailable Encounter Details Date Type Department Care Team (Late st Contact Info) Description 06/23/2023 Telephone [place] [address] Andressa Hernandez Social History Tobacco Use Types [...] 06/23/2023 4:59 PM EST Copied from CRM #[id number]. Topic: Specialty Dept CRMs - Generic Call >> Jun 20, 2023 3:00 PM Cheri Quinones wrote: Specialist: Rodney Padilla Relationship (if other than patient-full name): Maze Reason for Call: Scheduled PFT 08/18 at 1 PM documented in this encounter Plan of Treatment Upcoming Encounters Date Type Department Care Team (Late st Contact Info) Description 05/01/2024 11:20 AM EDT Appointment Mammography/[place] [address] Rodney Padilla MD 05/01/2024 1:45 PM EDT Office [place] [address] Juanpablo Hernandez MD [facility] [place] [address] 05/23/2024 2:45 PM EST Clinical Support Family Medicine at [facility] [address] [place] [place] [address] Julia Low, [facility] 01/30/2025 1:30 PM EDT Laboratory Appointment Lab at [facility] Hematology Oncology [address] [place] [address] 01/30/2025 3:[address] [place] [address] Arturo Cordero MD [facility] [address] HEMATOLOGY [place] [address] 01/30/2025 4:15 PM EDT Office Visit Hematology [place] [address] Arturo Cordero MD [facility] [address] HEMATOLOGY [place] [address] documented as of this encounter Visit Diagnoses Not on filedocumented in this encounter Care Teams Crm Marketing Specialist Relationship Specialty Start Date End Date Rodney Padilla MD PCP - General 07/18/22 04/09/24 documented as of this encounter
--- OUTSIDE RECORDS SUMMARY | 2024-04-15 15:49 | XMS_ITS | Encounter Summary ---
[facility] Address [facility] [place] [address] Care Team Providers Care Line Leader Name Role Phone Daryn Garrett MD Primary Care Provider Reason for Visit * Reason Comments Medication Refill Encounter Details Date Type Department Care Team (Late st Contact Info) Description 05/16/2023 Refill Family Medicine at [facility] [address] [place] [address] Tamera Khan APRN [facility] DR [facility] [address] Type 2 diabetes mellitus with hyperglycemia, without [...] 05/01/2024 11:20 AM EDT Appointment Mammography/DXA at [place] [phone] Rodney Padilla MD 05/01/2024 1:45 PM EDT Office Visit Ophthalmology at [place] [phone] Juanpablo Hernandez MD [facility] [place] [address] 05/23/2024 2:45 PM EST Clinical Support Family Medicine at [facility] [address] [place] [address] Julia Low, [facility] 01/30/2025 1:30 PM EDT Laboratory Appointment Lab at [facility] Hematology Oncology [address] [place] [address] 01/30/2025 3:[address] Scan at [place] [phone] Arturo Cordero MD [facility] [place] [address] 01/30/2025 4:15 PM EDT Office Visit Hematology [place] [address] Arturo Cordero MD [facility] [address] [place] [address] documented as of this encounter Visit Diagnoses Diagnosis Type 2 diabetes mellitus with hyperglycemia, without long-term current use of insulin documented in this encounter Care Teams Line Leader Relationship Specialty Start Date End Date Daryn Garrett MD [facility] [place] [address] PCP - General 04/10/24 documented as of this encounter
--- OUTSIDE RECORDS SUMMARY | 2024-04-15 15:49 | XMS_ITS | Encounter Summary ---
Author Organization [facility] [place] [address] Care Team Providers Care Lead Mobile Developer Name Role Phone Rodney Padilla MD Primary Care Provider Unav ailable Reason for Visit * Reason Comments Other Leg fluid Diabetes Encounter Details Date Type Department Care Team (Latest Contact Info) Description 04/17/2023 4:00 PM EDT Office Visit Family Medicine at [facility] [address] [place] [address] Rodney Padilla MD Edema, unspecified type; Diabetic polyneuropathy associated with [...] Padilla MD - 04/17/2023 4:00 PM EDT .kjj * Rodney Padilla MD - 04/17/2023 4:00 [...] tablet 5 fluticasone propionate (Flonase) 50 mcg/actuation [place], Suspension [...] patient/family/caregiver Referring and communicating with other health child care attendant Documenting clinical information in the electronic or other health record Independently interpreting results Care coordination documented in this encounter Plan of Treatment Upcoming Encounters Date Type Department Care Team (Late st Contact Info) Description 05/01/2024 11:20 AM EDT Appointment Mammography/[place] [address] Rodney Padilla MD 05/01/2024 1:45 PM EDT Office [place] [phone] Juanpablo Hernandez MD [facility] [place] [address] 05/23/2024 2:45 PM EST Clinical Support Family Medicine at [facility] [address] [place] [address] Julia Low [facility] 01/30/2025 1:30 PM EDT Laboratory Appointment Lab at [facility] Hematology Oncology [address] [place] [address] 01/30/2025 3:[address] [place] [address] Arturo Cordero MD [facility] DR [place] [address] 01/30/2025 4:15 PM EDT Office Visit Hematology [place] [address] Arturo Cordero MD [facility] DR [place] [address] documented as of this encounter Visit Diagnoses Diagnosis Edema, unspecified type Diabetic polyneuropathy associated with type 2 diabetes mellitus Type 2 diabetes mellitus with diabetic polyneuropathy, with long-term current use of insulin Skin lesion Unspecified disorder of skin and subcutaneous tissue documented in this encounter Care Teams Lead Mobile Developer Relationship Specialty Start Date End Date Rodney Padilla MD PCP - General 07/18/22 04/09/24 documented as of this encounter
--- OUTSIDE RECORDS SUMMARY | 2024-04-15 15:49 | XMS_ITS | Encounter Summary ---
Author Organization [facility] Address [facility] [place] [address] Care Team Providers Care Director Of Restaurant Operations Name Role Phone Rodney Padilla MD Primary Care Provider Unav ailable Reason for Visit * Reason Comments Medication Refill Encounter Details Date Type Department Care Team (Late st Contact Info) Description 02/26/2023 Refill Family Medicine at [facility] [address] [place] [address] Luis E Narayan MD [facility] DR LILI [facility] [address] Mixed hyperlipidemia Social History Tobacco Use Types [...] 05/01/2024 11:20 AM EDT Appointment Mammography/[place] [address] Rodney Padilla MD 05/01/2024 1:45 PM EDT Office [place] [address] Juanpablo Hernandez MD [facility] [place] [address] 05/23/2024 2:45 PM EST Clinical Support Family Medicine at [facility] [address] [place] [phone] Julia Low Bacilio 01/30/2025 1:30 PM EDT Laboratory Appointment Lab at [facility] Hematology Oncology [address] [place] [address] 01/30/2025 3:[address] [place] [address] Arturo Cordero MD [facility] DR HEMATOLOGY [place] [address] 01/30/2025 4:15 PM EDT Office Visit Hematology [place] [address] Arturo Cordero MD [facility] DR HEMATOLOGY [place] [address] documented as of this encounter Visit Diagnoses Diagnosis Mixed hyperlipidemia documented in this encounter Care Teams Director Of Restaurant Operations Relationship Specialty Start Date End Date Rodney Padilla MD PCP - General 07/18/22 04/09/24 documented as of this encounter
--- OUTSIDE RECORDS SUMMARY | 2024-04-15 15:49 | XMS_ITS | Encounter Summary ---
Author Organization [facility] Address [facility] [place] [address] Care Team Providers Care Manager Civil Name Role Phone Rodney Padilla MD Primary Care Provider Unav ailable Reason for Visit * Reason Onset Date Comments Medication Refill 03/21/2023 Encounter Details Date Type Department Care Team (Late st Contact Info) Description 03/21/2023 Refill Family Medicine at [facility] [address] [place] [address] Suzanne Martinez APRN [facility] DR LIL[facility] [address] Social History Tobacco Use Types Packs/Day Years [...] 05/01/2024 11:20 AM EDT Appointment Mammography[place] [address] Rodney Padilla MD 05/01/2024 1:45 PM EDT Office [place] [address] Juanpablo Hernandez MD [facility] [place] [address] 05/23/2024 2:45 PM EST Clinical Support Family Medicine at [place] [address] [place] [address] Julia Low [facility] 01/30/2025 1:30 PM EDT Laboratory Appointment Lab at [facility] Hematology Oncology [address] [place] [address] 01/30/2025 3:[address] [place] [address] Arturo Cordero MD [facility] DR HEMATOLOGY [place] [address] 01/30/2025 4:15 PM EDT Office Visit Hematology [place] [address] Arturo Cordero MD [facility] DR HEMATOLOGY [place] [address] documented as of this encounter Visit Diagnoses Not on filedocumented in this encounter Care Teams Manager Civil Relationship Specialty Start Date End Date Rodney Padilla MD PCP - General 07/18/22 04/09/24 documented as of this encounter
--- OUTSIDE RECORDS SUMMARY | 2024-04-15 15:49 | XMS_ITS | Encounter Summary ---
Author Organization [facility] Address [facility] [place] [address] Care Team Providers Care Trouble Tracer Name Role Phone Rodney Padilla MD Primary Care Provider Unav ailable Encounter Details Date Type Department Care Team (Late st Contact Info) Description 01/09/2023 Orders Only Hematology [place] [address] Arturo Cordero MD [facility] DR HEMATOLOGY [place] [address] Malignant melanoma of conjunctiva, left; Lung nodule [...] AM EDT Appointment Mammography/[place] [address] Rodney Padilla MD 05/01/2024 1:45 PM EDT Office [place] [address] Juanpablo Hernandez MD [facility] [place] [address] 05/23/2024 2:45 PM EST Clinical Support Family Medicine at [facility] [address] [place] [address] Julia Low, [facility] 01/30/2025 1:30 PM EDT Laboratory Appointment Lab at [facility] Hematology Oncology [address] [place] [address] 01/30/2025 3:[address] [place] [address] Arturo Cordero MD [facility] DR HEMATOLOGY [place] [address] 01/30/2025 4:15 PM EDT Office Visit Hematology [place] [address] Arturo Cordero MD [facility] DR HEMATOLOGY [place] [address] documented as of this encounter Results * Lactate Dehydrogenase (08/03/2023 7:53 AM EST) Pathologist [facility] Lactate Dehydrogenase 218 110 - 220 unit/L [facility] Blood 08/03/2023 7:53 AM EST 08/03/2023 9:46 AM EST Narrative Resulting Agency Comment Spec In Lab Arturo Cordero MD CHEMISTRY ORDERABLES [facility] [place] [address] * (ABNORMAL) Comprehensive metabolic panel (non-fasting) (08/03/2023 7:53 AM EST) Glucose 254(H) 65 - 199 mg/dL [facility] Comment:Diabetes: >=200 mg/d L plus symptoms Blood Urea Nitrogen 17 8 - 18 mg/dL [facility] Creatinine 0.82 0.70 - 1.20 mg/dL [facility] Sodium 140 135 - 145 mmol/L [facility] Potassium 4.9 3.5 - 5.0 mmol/L [facility] Comment: Please note: ??Patients with WBC >100,000 may have falsely elevated Potassium levels. ??For accurate Potassium quantification in these patients send serum separator tube (gold top) for subsequent determinations. ??Contact the Clinical Chemistry Laboratory if there are any questions. Chloride 103 98 - 107 mmol/L [facility] Carbon Dioxide 27 22 - 31 mmol/L [facility] Anion Gap 10 5 - 15 mmol/L [facility] Calcium 9.5 8.5 - 10.5 mg/dL [facility] Protein, Total 6.9 6.1 - 8.0 g/dL [facility] Albumin 4.3 3.2 - 5.2 g/dL [facility] Aspartate Aminotransferase 19 0 - 30 unit/L [facility] Alanine Aminotransferase 26 0 - 30 unit/L [facility] Alkaline Phosphatase 101 35 - 105 unit/L [facility] Bilirubin, Total 0.3 0.2 - 1.3 mg/dL [facility] Est Glomerular Filtration Rate 80 >=60 mL/min/1. 73 m?? [facility] Comment: This patient's estimated GFR [...] Cordero MD CHEMISTRY ORDERABLES Performing Organization Address City/State/[facility] Co de Phone Number [facility] [place] [address] documented in this encounter Visit Diagnoses Diagnosis Malignant melanoma of conjunctiva, left Lung nodule Solitary pulmonary nodule documented in this encounter Care Teams Trouble Tracer Relationship Specialty Start Date End Date Rodney Padilla MD PCP - General 07/18/22 04/09/24 documented as of this encounter
--- OUTSIDE RECORDS SUMMARY | 2024-04-15 15:49 | XMS_ITS | Encounter Summary ---
Author Organization [facility] [place] [address] Care Team Providers Care Merchandise Flow Team Leader Name Role Phone Rodney Padilla MD Primary Care Provider Unav ailable Encounter Details Date Type Department Care Team (Late st Contact Info) Description 02/20/2023 [place] [address] Lakshmi Castellanos, RN Social History Tobacco Use Types Packs/Day [...] Work Phone: Work Phone: Gender: Female Time: [place] [address] Address: [address] [place] [address] Address: PCP: Unknown, -[address] - Relationship to Caller: Self Org: [facility] Chief Complaint: KNEE Call Outcome: See MD Within 24 Hours Client: Company: [facility] [place] PhoneLine1: [facility], Triage Patient: Alize Gramajo Caller Is: Alize [...] -patient states she is already coming to [facility] for an eye appointment and [...] LB1 Guideline: Knee Pain - (Adult After-Hours) [[id number]] Triage Level: Pre Disposition: RN Override: See Physician within 24 Hours See/call Doctor Disagree Reason: Go to Facility: Patient Understands Instructions: Yes Questions / Responses For: Knee Pain - (Adult After-Hours) [[id number]] TRIAGE QUESTION (TRIGGERING DISPOSITION) Response [1] Very swollen joint AND [2] no fever R/O: forgotten trauma, arthritis CARE ADVICE Response 1. CARE ADVICE given per Knee Pain (Adult) guideline. Alize Avila Triage #: [id number] - [KNEE] Page 1 of 2 MD Paging: Paged Paged Date & Time Sent By Paging Method Device Address Status of page Message: Lakshmi Castellanos MD-[address] Unknown Responded 02/20/2023 10:43:50 AM EXTERNAL EXTERNAL see physician within 24 hours: 7. CALL BACK IF: * Fever occurs * You become worse. 44. SEE PCP OR VIDEO VISIT WITHIN 24 HOURS: * IF OFFICE WILL BE OPEN: You need to be examined within the next 24 hours or have a video telemedicine visit. Call your doctor (or BURR PICKER/PA) when the office opens and make an appointment. 1001. PAIN MEDICINES: * For pain relief, you can take either acetaminophen, ibuprofen, or naproxen. * Before taking any medicine, read all the instructions on the package. Alize Gramajo Triage #: [id number] - [KNEE] Page 2 of 2 documented in this encounter Plan of Treatment Upcoming Encounters Date Type Department Care Team (Late st Contact Info) Description 05/01/2024 11:20 AM EDT Appointment Mammography/[place] [address] Rodney Padilla MD 05/01/2024 1:45 PM EDT Office Visit [place] [address] Juanpablo Hernandez MD [facility] [place] [address] 05/23/2024 2:45 PM EST Clinical Support Family Medicine at [address] [address] Julia Low, [facility] 01/30/2025 1:30 PM EDT Laboratory Appointment Lab at [facility] Hematology Oncology [address] [place] [address] 01/30/2025 3:[address] [place] [address] Arturo Cordero MD [facility] DR [place] [address] 01/30/2025 4:15 PM EDT Office Visit Hematology [place] [address] Arturo Cordero MD [facility] [place] [address] documented as of this encounter Visit Diagnoses Not on filedocumented in this encounter Care Teams Merchandise Flow Team Leader Relationship Specialty Start Date End Date Rodney Padilla MD PCP - General 07/18/22 04/09/24 documented as of this encounter
--- OUTSIDE RECORDS SUMMARY | 2024-04-15 15:49 | XMS_ITS | Encounter Summary ---
Author Organization Count Includes [facility] Address One [facility] [place] [address] Care Team Providers Care Childcare Worker Name Role Phone Rodney Padilla MD [...] 05/01/2024 11:20 AM EDT Appointment Mammography/DXA at [place] [phone] Rodney Padilla MD 05/01/2024 1:45 PM EDT Office Visit Ophthalmology at [place] [phone] Juanpablo Hernandez MD [facility] [place] [place] [address] 05/23/2024 2:45 PM EST Clinical Support Family Medicine at [place] [address] [place] [address] Julia Low, [facility] 01/30/2025 1:30 PM EDT Laboratory Appointment Lab at [facility] Hematology Oncology [address] [place] [address] 01/30/2025 3:[address] [place] [address] Arturo Cordero MD [facility] [address] [place] [address] 01/30/2025 4:15 PM EDT Office Visit Hematology [place] [address] Arturo Cordero MD [facility] [address] [place] [address] documented as of this encounter Visit Diagnoses Not on filedocumented in this encounter Care Teams Childcare Worker Relationship Specialty Start Date End Date Rodney Padilla MD PCP - General 07/18/22 04/09/24 documented as of this encounter
--- OUTSIDE RECORDS SUMMARY | 2024-04-15 15:49 | XMS_ITS | Encounter Summary ---
Author Organization [facility] [place] [address] Care Team Providers Care Cork Cutter Name Role Phone Rodney Padilla MD Primary Care Provider Unav ailable Encounter Details Date Type Department Care Team (Latest Contact Info) Description 06/20/2023 2:00 PM EST Office Visit Family Medicine at [facility] [address] [place] [address] Rodney Padilla MD Diabetic polyneuropathy associated with type 2 diabetes [...] tablet 5 fluticasone propionate (Flonase) 50 mcg/actuation [place], Suspension 1 spray by Each Nare route [...] Referring and communicating with other health care technician Documenting clinical information in the electronic or other health record Independently interpreting results Care coordination documented in this encounter Plan of Treatment Upcoming Encounters Date Type Department Care Team (Late st Contact Info) Description 05/01/2024 11:20 AM EDT Appointment Mammography/[place] [phone] Rodney Padilla MD 05/01/2024 1:45 PM EDT Office Visit [place] [address] Juanpablo Hernandez MD [facility] [address] 05/23/2024 2:45 PM EST Clinical Support Family Medicine at [facility] [address] [place] [address] Julia Low [facility] 01/30/2025 1:30 PM EDT Laboratory Appointment Lab at [facility] Hematology Oncology [address] [place] [address] 01/30/2025 3:[address] [place] [address] Arturo Cordero MD [facility] DR HEMATOLOGY [place] [address] 01/30/2025 4:15 PM EDT Office Visit Hematology [place] [address] Arturo Cordero MD [facility] HEMATOLOGY [place] [address] documented as of this encounter Procedures Procedure [...] PFT FEV1/FVC Pre-BD Z-Score -0.96 COMPAS PFT IKD58-95 Actual Pre-BD 0.88 % COMPAS PFT EON03-42 Predicted 2.06 % COMPAS PFT NFB79-68 Pre-BD % of Predicted 43 % COMPAS PFT EOK90-85 Pre-BD Z-Score -1.92 COMPAS PFT DLCO Hb [...] Urine 6 0 - 29 mcg/mg Cr [facility] Comment: Reference Ranges: <30 [...] 2, 357? 362 Albumin, Urine 7.3 mg/L [facility] Creatinine, Urine 119 mg/dL [facility] Urine 06/20/2023 4:05 PM EST 06/20/2023 4:25 PM EST Narrative Resulting Agency Comment Spec In Lab Rodney Padilla MD URINE ORDERABLES [facility] [place] [address] * Lipid Panel (Reflex Direct LDL) (06/20/2023 3:58 PM EST) Cholesterol, Total 141 mg/dL [facility] Comment: Lower Risk: <200 mg/dL Average Risk: 200-239 mg/dL Higher Risk: >eg=205 mg/dL Triglyceride 96 mg/dL [facility] Comment: Average Risk/Lower Risk: <150 mg/dL Borderline High Risk: 150-199 mg/dL High Risk: 200-499 mg/dL Very High Risk: >ab=376 mg/dL HDL Cholesterol 41 mg/dL [facility] Comment: Males: ?? Higher Risk: <40 mg/dL Females: ?? Higher Risk: <50 mg/dL LDL Cholesterol 81 mg/dL [facility] Comment: Lowest Risk: <100 mg/dL Lower Risk: 100-129 mg/dL Borderline High Risk: 130-159 mg/dL High Risk: 160-189 mg/dL Very High Risk: >qx=751 mg/dL Cholesterol/HDL Ratio 3.4 ratio [facility] Lipid Interpretation See Note [facility] Comment: Lipid management should be guided by a patient? s ASCVD risk, goals and preferences. ACC/AHA Guidelines recommend high intensity statin if clinical ASCVD or LDL greater than or equal to 190 mg/dL. http://ReferMe.C4 Imaging/UOV-PCR-Neoaweiww Adults aged 40-75 with LDL 70-189 mg/dL should have their 10 year ASCVD risk estimated with the ACC/AHA ASCVD risk commercial construction estimator http://tools.acc.org/PYXIP-Sjwq-Uiofxrgwx/ Statin should be discussed if risk greater [...] MD CHEMISTRY ORDERABLE S Performing Organization Address City/[facility]/ZIP Co de Phone Number [facility] [place] [address] * Basic Metabolic Panel (non-fasting) (06/20/2023 3:58 PM EST) Glucose 142 65 - 199 mg/dL [facility] Comment:Diabetes: >=200 mg/d L plus symptoms Blood Urea Nitrogen 11 8 - 18 mg/dL [facility] Creatinine 0.89 0.70 - 1.20 mg/dL [facility] Sodium 144 135 - 145 mmol/L [facility] Potassium 4.3 3.5 - 5.0 mmol/L [facility] Comment: Please note: ??Patients with WBC >100,000 may have falsely elevated Potassium levels. ??For accurate Potassium quantification in these patients send serum separator tube (gold top) for subsequent determinations. ??Contact the Clinical Chemistry Laboratory if there are any questions. Chloride 106 98 - 107 mmol/L [facility] Carbon Dioxide 25 22 - 31 mmol/L [facility] Anion Gap 13 5 - 15 mmol/L [facility] Calcium 9.3 8.5 - 10.5 mg/dL [facility] Est Glomerular Filtration Rate 73 >=60 mL/min/1. 73 m?? [facility] Comment: This patient's estimated [...] MD CHEMISTRY ORDERABLE S Performing Organization Address City/[facility]/ZIP Co de Phone Number [facility] [place] [address] * (ABNORMAL) Hemoglobin A1c (06/20/2023 3:58 PM EST) Hemoglobin A1c 9.4(H) 4.3 - 5.6 % [facility] Comment: Reference Range: 4.3 [...] Mellitus, Diabetes Care 2013; 36: Suppl. 1, S67-44 Estimated Average Glucose 222 mg/dL [facility] Comment: Note: The eAG calculation has not been proven valid for women, individuals below 18 years old or above 70 years old, or individuals with hemoglobinopathies. Estimated average glucose (eAG) is calculated from the equation described in: Yahir GRADY, Bernadette J, Tahira R, et al. ??Translating the A1C assay into estimated average glucose values. ??Diabetes Care 2008:31(8):3505-4990. Additional resources are available on the ADA website (diabetes.org). Blood 06/20/2023 3:58 PM EST 06/20/2023 4:08 PM EST Narrative Resulting Agency Comment Spec In Lab Rodney Padilla MD CHEMISTRY ORDERABLE S [facility] [place] [address] documented in this encounter Visit Diagnoses Diagnosis [...] type documented in this encounter Care Teams Cork Cutter Relationship Specialty Start Date End Date Rodney Padilla MD PCP - General 07/18/22 04/09/24 documented as of this encounter
--- OUTSIDE RECORDS SUMMARY | 2024-04-15 15:49 | XMS_ITS | Encounter Summary ---
Author Organization Formerly [facility] Address [facility] [place] [address] Care Team Providers Care Spout Liner Name Role Phone Daryn Garrett MD Primary Care Provider Reason for Visit * Reason Comments Medication Refill Encounter Details Date Type Department Care Team (Late st Contact Info) Description 04/02/2023 Refill Family Medicine at [facility] [address] [place] [address] Luis E Narayan MD [facility] [address] LILI [place] [address] Social History Tobacco Use Types Packs/Day Years [...] 05/01/2024 11:20 AM EDT Appointment Mammography/[place] [address] Rodney Padilla MD 05/01/2024 1:45 PM EDT Office [place] [address] Juanpablo Hernandez MD [facility] [place] [address] 05/23/2024 2:45 PM EST Clinical Support Family Medicine at [facility] [address] [place] [address] Julia Low, [facility] 01/30/2025 1:30 PM EDT Laboratory Appointment Lab at [facility] [place] On[place] [address] [place] [address] 01/30/2025 3:[address] [place] [address] Arturo Cordero MD [facility] [place] [address] 01/30/2025 4:15 PM EDT Office Visit Hematology [place] [address] Arturo Cordero MD [facility] [place] [address] documented as of this encounter Visit Diagnoses Not on filedocumented in this encounter Care Teams Spout Liner Relationship Specialty Start Date End Date Daryn Garrett MD [facility] [address] [place] [address] PCP - General 04/10/24 documented as of this encounter
--- OUTSIDE RECORDS SUMMARY | 2024-04-15 15:49 | XMS_ITS | Encounter Summary ---
Author Organization [facility] [place] [address] Care Team Providers Care Parliamentary Archivist Name Role Phone Rodney Padilla MD Primary Care Provider Unav ailable Reason for Visit * Reason Onset Date Comments Leg Swelling 04/14/2023 Encounter Details Date Type Department Care Team (Late st Contact Info) Description 04/14/2023 Nurse Triage Family Medicine at [facility] [address] [place] [address] Rani Menard, VEDA Leg Swelling Social History Tobacco Use Types [...] - 04/14/2023 3:56 PM EDT Copied from [facility] #[id number]. Topic: Triage - Triage >> Apr 14, [...] 05/01/2024 11:20 AM EDT Appointment Mammography/[place] [address] Rodney Padilla MD 05/01/2024 1:45 PM EDT Office [place] [address] Juanpablo Hernandez MD [facility] [address] 05/23/2024 2:45 PM EST Clinical Support Family Medicine at [facility] [address] [place] [address] Julia Low, [facility] 01/30/2025 1:30 PM EDT Laboratory Appointment Lab at [facility] [place] Oncology [address] [place] [address] 01/30/2025 3:[address] [place] [address] Arturo Cordero MD [facility] DR HEMATOLOGY [place] [address] 01/30/2025 4:15 PM EDT Office Visit Hematology [place] [address] Arturo Cordero MD [facility] DR HEMATOLOGY [place] [address] documented as of this encounter Visit Diagnoses Not on filedocumented in this encounter Care Teams Parliamentary Archivist Relationship Specialty Start Date End Date Rodney Padilla MD PCP - General 07/18/22 04/09/24 documented as of this encounter
--- OUTSIDE RECORDS SUMMARY | 2024-04-15 15:49 | XMS_ITS | Encounter Summary ---
Author Organization [facility] [place] [address] Care Team Providers Care Greige Mender Name Role Phone Rodney Padilla MD Primary Care Provider Unav ailable Reason for Referral * Consultation (Routine) - Closed Specialty Diagnoses / Procedures Referred By Contchrissy t Referred To Contact Diagnoses Chronic pain of right knee Calli Mariscal MD [facility] [place] [address] Orthopaedics, [facility] [address] [place] [address] Referral ID Status Reason Start Date Expiration Date V isits Requested Visits Authorized [id number] Closed Consult, Test & Treat 02/22/2023 08/21/2023 1 1 Reason for Visit * Reason Comments Bilateral Knee Pain Rt is worse Referral To Ortho Encounter Details Date Type Department Care Team (Late st Contact Info) Description 02/22/2023 11:30 AM EDT Office Visit Family Medicine at [facility] [address] [place] [address] Calli Mariscal MD 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 Yes fluticasone propionate (Flonase) 50 mcg/actuation [place], Suspension 1 spray by Each Nare route [...] Yes Nebulizer Accessories Misc 1 each by [facility].(Non-Drug; Combo Route) route every 4 hours as [...] 05/01/2024 11:20 AM EDT Appointment Mammography/[place] [address] Rodney Padilla MD 05/01/2024 1:45 PM EDT Office [place] [address] Juanpablo Hernandez MD [facility] [place] [address] 05/23/2024 2:45 PM EST Clinical Support Family Medicine at [facility] [address] [place] [address] Julia Low, [facility] 01/30/2025 1:30 PM EDT Laboratory Appointment Lab at [facility] Hematology Oncology [address] [place] [address] 01/30/2025 3:[address] [place] [address] Arturo Cordero MD [facility] DR HEMATOLOGY [place] [address] 01/30/2025 4:15 PM EDT Office Visit Hematology [place] [address] Arturo Cordero MD [facility] DR HEMATOLOGY [place] [address] Scheduled Referrals Name Type Priority Associated Diagnoses Order Schedule Referral to Orthopaedics Outpatient Referral Routine Chronic pain of right knee Ordered: 02/22/2023 documented as of this encounter Visit Diagnoses Diagnosis Chronic pain of right knee documented in this encounter Care Teams Greige Mender Relationship Specialty Start Date End Date Rodney Padilla MD PCP - General 07/18/22 04/09/24 documented as of this encounter
--- OUTSIDE RECORDS SUMMARY | 2024-04-15 15:49 | XMS_ITS | Encounter Summary ---
Author Organization [facility] [place] [address] Care Team Providers Care Junior Net Developer Name Role Phone Rodney Padilla MD Primary Care Provider Unav ailable Encounter Details Date Type Department Care Team (Latest Contact Info) Description 02/28/2023 4:00 PM EDT TH Visit (TeleHealth) Family Medicine at [facility] [address] [place] [address] Rodney Padilla MD Type 2 diabetes mellitus without complication, with [...] VISIT Patient location: Home address on file: [address] [place] [phone] Mode of communication documented under telehealth requirements as appropriate Callback number if video visit: Preferred phone number on file: [phone] CHART REVIEW Patient unable to come to [...] List Diagnosis Code 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 Altered mental [...] tablet 5 fluticasone propionate (Flonase) 50 mcg/actuation [place], Suspension 1 spray by Each Nare route [...] patient/family/caregiver Referring and communicating with other health rn long term care Documenting clinical information in the electronic or other health record Independently interpreting results Care coordination documented in this encounter Plan of Treatment Upcoming Encounters Date Type Department Care Team (Late st Contact Info) Description 05/01/2024 11:20 AM EDT Appointment Mammography/[place] [address] Rodney Padilla MD 05/01/2024 1:45 PM EDT Office [place] [address] Juanpablo Hernandez MD [facility] [place] [address] 05/23/2024 2:45 PM EST Clinical Support Family Medicine at [facility] [address] [place] [address] Julia Low [facility] 01/30/2025 1:30 PM EDT Laboratory Appointment Lab at [facility] Hematology Oncology [address] [place] [address] 01/30/2025 3:[address] [place] [address] Arturo Cordero MD [facility] DR [place] [address] 01/30/2025 4:15 PM EDT Office Visit Hematology [place] [address] Arturo Cordero MD [facility] DR [place] [address] documented as of this encounter Visit Diagnoses Diagnosis Type 2 diabetes mellitus without complication, with long-term current use of insulin documented in this encounter Care Teams Junior Net Developer Relationship Specialty Start Date End Date Rodney Padilla MD PCP - General 07/18/22 04/09/24 documented as of this encounter
--- OUTSIDE RECORDS SUMMARY | 2024-04-15 15:49 | XMS_ITS | Encounter Summary ---
Author Organization [facility] Address [facility] [place] [address] Care Team Providers Care Fisher Name Role Phone Rodney Padilla MD Primary [...] 05/01/2024 11:20 AM EDT Appointment Mammography/DXA at [place] [phone] Rodney Padilla MD 05/01/2024 1:45 PM EDT Office Visit Ophthalmology at [place] [phone] Juanpablo Hernandez MD [facility] [place] [address] 05/23/2024 2:45 PM EST Clinical Support Family Medicine at [place] [address] [place] [address] Julia oLw, [facility] 01/30/2025 1:30 PM EDT Laboratory Appointment Lab at [facility] [place] [address] [place] [address] 01/30/2025 3:[address] [place] [address] Arturo Cordero MD [facility] [address] [place] [address] 01/30/2025 4:15 PM EDT Office Visit Hematology [place] [address] Arturo Cordero MD [facility] [address] [place] [address] documented as of this encounter Visit Diagnoses Not on filedocumented in this encounter Care Teams Fisher Relationship Specialty Start Date End Date Rodney Padilla MD PCP - General 07/18/22 04/09/24 documented as of this encounter
--- OUTSIDE RECORDS SUMMARY | 2024-04-15 15:49 | XMS_ITS | Encounter Summary ---
Author Organization Replaced By [facility] Address [facility] [place] [address] Care Team Providers Care Agricultural Economics Professor Name Role Phone Rodney Padilla MD [...] 05/01/2024 11:20 AM EDT Appointment Mammography/DXA at [place] [phone] Rodney Padilla MD 05/01/2024 1:45 PM EDT Office Visit Ophthalmology at [place] [phone] Juanpablo Hernandez MD [facility] [place] [address] 05/23/2024 2:45 PM EST Clinical Support Family Medicine at [place] [address] [place] [address] Julia Low, [facility] 01/30/2025 1:30 PM EDT Laboratory Appointment Lab at [facility] [place] On[place] [address] [place] [address] 01/30/2025 3:[address] [place] [address] Arturo Cordero MD [facility] DR HEMATOLOGY [place] [address] 01/30/2025 4:15 PM EDT Office Visit Hematology [place] [address] Arturo Cordero MD [facility] DR HEMATOLOGY [place] [address] documented as of this encounter Visit Diagnoses Not on filedocumented in this encounter Care Teams Agricultural Economics Professor Relationship Specialty Start Date End Date Rodney Padilla MD PCP - General 07/18/22 04/09/24 documented as of this encounter
--- OUTSIDE RECORDS SUMMARY | 2024-04-15 15:49 | XMS_ITS | Encounter Summary ---
Author Organization [facility] [place] [address] Care Team Providers Care Evaluator Transfer Students Name Role Phone Rodney Padilla MD Primary Care Provider Unav ailable Encounter Details Date Type Department Care Team (Late st Contact Info) Description 02/20/2023 Telephone [facility] [address] [place] [address] Rani Menard, RN Social History Tobacco Use [...] - 02/20/2023 11:06 AM EDT Copied from [facility] #[id number]. Topic: Triage - Triage >> Feb 20, 2023 10:40 AM Alba Richard wrote: Symptom: Knee Pain (spoke with AMCM) PCP: RODNEY PADILLA Additional Comments: AMCM advised a message be placed as patient is requesting an appointment on 02/22 for a cortizone shot for her severe knee pain. AMCM advised patient to be seen within 24 hours but patient declined. documented in this encounter Plan of Treatment Upcoming Encounters Date Type Department Care Team (Late st Contact Info) Description 05/01/2024 11:20 AM EDT Appointment Mammography/[place] [address] Rodney Padilla MD 05/01/2024 1:45 PM EDT Office Visit Ophthalmology at [place] [phone] Juanpablo Hernandez MD [facility] [address] 05/23/2024 2:45 PM EST Clinical Support Family Medicine at [address] [phone] Julia Low [facility] 01/30/2025 1:30 PM EDT Laboratory Appointment Lab at [facility] Hematology Oncology [address] [place] [address] 01/30/2025 3:[address] [place] [address] Arturo Cordero MD [facility] DR [place]EM[place] [address] 01/30/2025 4:15 PM EDT Office Visit [place]ology [place] [address] Arturo Cordero MD [facility] DR [place] [address] documented as of this encounter Visit Diagnoses Not on filedocumented in this encounter Care Teams Evaluator Transfer Students Relationship Specialty Start Date End Date Rodney Padilla MD PCP - General 07/18/22 04/09/24 documented as of this encounter
--- OUTSIDE RECORDS SUMMARY | 2024-04-15 15:49 | XMS_ITS | Encounter Summary ---
Author Organization [facility] Address [facility] [place] [address] Care Team Providers Care Director Of Social Media Marketing Name Role Phone Rodney Padilla MD Primary Care Provider Unav ailable Reason for Visit * Reason Onset Date Comments Medication Refill 02/04/2023 Encounter Details Date Type Department Care Team (Late st Contact Info) Description 02/04/2023 Refill Family Medicine at [facility] [address] [place] [address] Bereket Latham PA [facility] [place] [place] [address] COPD Social History Tobacco Use Types Packs/Day [...] AM EDT Appointment Mammography/[place] [address] Rodney Padilla MD 05/01/2024 1:45 PM EDT Office [place] [address] Juanpablo Hernandez MD [facility] [place] [address] 05/23/2024 2:45 PM EST Clinical Support Family Medicine at [address] [address] Julia Low, [facility] 01/30/2025 1:30 PM EDT Laboratory Appointment Lab at [facility] Hematology Oncology [address] [place] [address] 01/30/2025 3:[address] [place] [phone] Arturo Cordeor MD [facility] [place] [address] 01/30/2025 4:15 PM EDT Office Visit Hematology [place] [address] Arturo Cordero MD [facility] [place] [address] documented as of this encounter Visit Diagnoses Diagnosis COPD Simple chronic bronchitis documented in this encounter Care Teams Director Of Social Media Marketing Relationship Specialty Start Date End Date Rodney Padilla MD PCP - General 07/18/22 04/09/24 documented as of this encounter
--- OUTSIDE RECORDS SUMMARY | 2024-04-15 15:49 | XMS_ITS | Encounter Summary ---
Author Organization [facility] Address [facility] [place] [address] Care Team Providers Care Power Plant Assistant Name Role Phone Rodney Padilla MD [...] 05/01/2024 11:20 AM EDT Appointment Mammography/DXA at [place] [phone] Rodney Padilla MD 05/01/2024 1:45 PM EDT Office Visit Ophthalmology at [place] [phone] Juanpablo Hernandez MD [facility] [place] [place] [address] 05/23/2024 2:45 PM EST Clinical Support Family Medicine at [place] [address] [place] [address] Julia Low, [facility] 01/30/2025 1:30 PM EDT Laboratory Appointment Lab at [facility] Hematology Oncology [address] [place] [address] 01/30/2025 3:[address] [place] [address] Arturo Cordero MD [facility] DR [place] [address] 01/30/2025 4:15 PM EDT Office Visit [place]ology [place] [address] Arturo Cordero MD [facility] DR [place] [address] documented as of this encounter Visit Diagnoses Not on filedocumented in this encounter Care Teams Power Plant Assistant Relationship Specialty Start Date End Date Rodney Padilla MD PCP - General 07/18/22 04/09/24 documented as of this encounter
--- OUTSIDE RECORDS SUMMARY | 2024-04-15 15:49 | XMS_ITS | Encounter Summary ---
Author Organization [facility] [place] [address] Care Team Providers Care Laborer Tin Can Name Role Phone Rodney Padilla MD Primary Care Provider Unav ailable Reason for Visit * Reason Comments Diabetes Hyperlipidemia Encounter Details Date Type Department Care Team (Late st Contact Info) Description 01/23/2023 9:30 AM EDT TH Visit (TeleHealth) Family Medicine at [facility] [address] [place] [address] Julia Low, [facility] Type 2 diabetes mellitus without long-term current [...] 132 148 183 144 174 128 195 6-Jan 195 145 143 221 131 168 181 163 173 170 154 122 200 155 164 195 7 units 179 176 201 129 170 134 171 153 AM PHI PM BED Average 181 163 198 150 152 160 Lowest 143 128 174 122 134 148 Highest 209 205 221 195 170 168 Daily Avg 168 eA1c 8.95047 Prior Averages: 08/26/21 09/09/21 09/24/21 11/14/21 11/03/22 12/01/22 01/03/23 Daily Avg 157 168 131 138 175 153 176 eA1c 8.39196 8.46 7.20 7.44 8.7 7.95 8.75 Acute [...] tablet 5 fluticasone propionate (Flonase) 50 mcg/actuation [place], Suspension 1 spray by Each Nare route [...] spacer 1 each 11 FreeStyle Sanjana 2 [place] Misc 1 each by Other route daily. [...] AM EDT Appointment Mammography/[place] [address] Rodney Padilla MD 05/01/2024 1:45 PM EDT Office [place] [address] Juanpablo Hernandez MD [facility] [place] [address] 05/23/2024 2:45 PM EST Clinical Support Family Medicine at [facility] [address] [place] [address] Julia Low [facility] 01/30/2025 1:30 PM EDT Laboratory Appointment Lab at [facility] Hematology Oncology [address] [place] [address] 01/30/2025 3:[address] [place] [address] Arturo Cordero MD [facility] DR HEMATOLOGY [place] [address] 01/30/2025 4:15 PM EDT Office Visit Hematology [place] [address] Arturo Cordero MD [facility] DR HEMATOLOGY [place] [address] documented as of this encounter Visit Diagnoses Diagnosis Type 2 diabetes mellitus without long-term current use of insulin- Primary documented in this encounter Care Teams Laborer Tin Can Relationship Specialty Start Date End Date Rodney Padilla MD PCP - General 07/18/22 04/09/24 documented as of this encounter
--- OUTSIDE RECORDS SUMMARY | 2024-04-15 15:49 | XMS_ITS | Encounter Summary ---
Author Organization [facility] Address [facility] [place] [address] Care Team Providers Care Anvil Seating Press Operator Name Role Phone Rodney Padilla MD Primary Care Provider Unav ailable Reason for Visit * Reason Comments Medication Refill Encounter Details Date Type Department Care Team (Late st Contact Info) Description 02/19/2023 Refill Family Medicine at [facility] [address] [place] [address] Luis E Narayan MD [facility] DR [facility] [place] [address] Social History Tobacco Use Types Packs/Day Years [...] Drug) Nausea And Vomiting Jade Kruse MA 02/20/23 3:21 PM documented in this encounter Plan of Treatment Upcoming Encounters Date Type Department Care Team (Late st Contact Info) Description 05/01/2024 11:20 AM EDT Appointment Mammography/[place] [address] Rodney Padilla MD 05/01/2024 1:45 PM EDT Office Visit Ophthalmology at [place] [phone] Juanpablo Hernandez MD [facility] [place] [address] 05/23/2024 2:45 PM [facility] Clinical Support Family Medicine at [place] [address] [place] [phone] Julia Low, [facility] 01/30/2025 1:30 PM EDT Laboratory Appointment Lab at [facility] Hematology Oncology [address] [place] [address] 01/30/2025 3:[address] [place] [address] Arturo Cordero MD [facility] DR [place] [address] 01/30/2025 4:15 PM EDT Office Visit Hematology [place] [address] Arturo Cordero MD [facility] DR HEMATOLOGY AND ONCOLOGY [place], [place] [phone] documented as of this encounter Visit Diagnoses Not on filedocumented in this encounter Care Teams Anvil Seating Press Operator Relationship Specialty Start Date End Date Rodney Padilla MD PCP - General 07/18/22 04/09/24 documented as of this encounter
--- OUTSIDE RECORDS SUMMARY | 2024-04-15 15:49 | XMS_ITS | Encounter Summary ---
Author Organization [facility] Address [facility] [place] [address] Care Team Providers Care Clerical Production Worker Name Role Phone Rodney Padilla MD Primary Care Provider Unav ailable Reason for Visit * Reason Onset Date Comments Medication Refill 03/21/2023 Encounter Details Date Type Department Care Team (Late st Contact Info) Description 03/21/2023 Refill Family Medicine at [facility] [address] [place] [address] Tamera Khan APRN [facility] DR LILI [place] [address] Social History Tobacco Use Types Packs/Day Years [...] AM EDT Appointment Mammography/DXA at [place] [phone] Rodney Padilla MD 05/01/2024 1:45 PM EDT Office Visit Ophthalmology at [place] [phone] Juanpablo Hernandez MD [facility] [place] [address] 05/23/2024 2:45 PM [facility] Clinical Support Family Medicine at [facility] [address] [place] [address] Julia Low, [facility] 01/30/2025 1:30 PM EDT Laboratory Appointment Lab at [facility] Hematology Oncology [address] [place], [place] [address] 01/30/2025 3:[address] Scan at [place] [phone] Arturo Cordero MD [facility] DR [place] [address] 01/30/2025 4:15 PM EDT Office Visit Hematology [place] [address] Arturo Cordero MD [facility] DR [place] [address] documented as of this encounter Visit Diagnoses Not on filedocumented in this encounter Care Teams Clerical Production Worker Relationship Specialty Start Date End Date Rodney Padilla MD PCP - General 07/18/22 04/09/24 documented as of this encounter
--- OUTSIDE RECORDS SUMMARY | 2024-04-15 15:49 | XMS_ITS | Encounter Summary ---
Author Organization [facility] Address [facility] [place] [address] Care Team Providers Care Director Water And Waste Services Name Role Phone Rodney Padilla MD Primary Care Provider Unav ailable Reason for Visit * Reason Onset Date Comments Medication Refill 04/02/2023 Encounter Details Date Type Department Care Team (Late st Contact Info) Description 04/02/2023 Refill Family Medicine at [facility] [address] [place] [address] Tamera Khan APRN [facility] DR LILI [place] [address] Social History Tobacco Use Types Packs/Day Years [...] 05/01/2024 11:20 AM EDT Appointment Mammography/[place] [address] Rodney Padilla MD 05/01/2024 1:45 PM EDT Office Visit Ophthalmology at [place] [phone] Juanpablo Hernandez MD [facility] [place] [address] 05/23/2024 2:45 PM EST Clinical Support Family Medicine at [address] [address] Julia Low, [facility] 01/30/2025 1:30 PM EDT Laboratory Appointment Lab at [facility] Hematology Oncology [address] [place] [address] 01/30/2025 3:[address] [place] [address]1000 Arturo Cordero MD [facility] DR [place] [address] 01/30/2025 4:15 PM EDT Office Visit Hematology [place] [address] Arturo Cordero MD [facility] DR [place] [address] documented as of this encounter Visit Diagnoses Not on filedocumented in this encounter Care Teams Director Water And Waste Services Relationship Specialty Start Date End Date Rodney Padilla MD PCP - General 07/18/22 04/09/24 documented as of this encounter
--- OUTSIDE RECORDS SUMMARY | 2024-04-15 15:49 | XMS_ITS | Encounter Summary ---
Author Organization Replaced By [facility] Address [facility] [place] [address] Care Team Providers Care Diesel Maintenance Electrician Name Role Phone Rodney Padilla MD Primary Care Provider Unav ailable Reason for Visit * Reason Onset Date Comments Medication Refill 03/21/2023 Encounter Details Date Type Department Care Team (Late st Contact Info) Description 03/21/2023 Refill Family Medicine at [facility] [address] [place] [address] Luis E Narayan MD [facility] DR LIL[place] [address] Essential hypertension Social History Tobacco Use Types [...] 05/01/2024 11:20 AM EDT Appointment Mammography/[place] [address] Rodney Padilla MD 05/01/2024 1:45 PM EDT Office [place] [phone] Juanpablo Hernandez MD [facility] [place] [place] [address] 05/23/2024 2:45 PM EST Clinical Support Family Medicine at [address] [phone] Julia Low, [facility] 01/30/2025 1:30 PM EDT Laboratory Appointment Lab at [facility] Hematology Oncology [address] [place] [address] 01/30/2025 3:[address] [place] [address] Arturo Cordero MD [facility] [address] [place] [address] 01/30/2025 4:15 PM EDT Office Visit Hematology [place] [address] Arturo Cordero MD [facility] [address] [place] [address] documented as of this encounter Visit Diagnoses Diagnosis Essential hypertension Unspecified essential hypertension documented in this encounter Care Teams Diesel Maintenance Electrician Relationship Specialty Start Date End Date Rodney Padilla MD PCP - General 07/18/22 04/09/24 documented as of this encounter
--- OUTSIDE RECORDS SUMMARY | 2024-04-15 15:49 | XMS_ITS | Encounter Summary ---
Author Organization [facility] Address [facility] [place] [address] Care Team Providers Care Alumina Plant Supervisor Name Role Phone Rodney Padilla MD [...] 05/01/2024 11:20 AM EDT Appointment Mammography/DXA at [place] [phone] Rodney Padilla MD 05/01/2024 1:45 PM EDT Office Visit Ophthalmology at [place] [phone] Juanpablo Hernandez MD [facility] [place] [place] [address] 05/23/2024 2:45 PM EST Clinical Support Family Medicine at [place] [address] [place] [address] uJlia Low, [facility] 01/30/2025 1:30 PM EDT Laboratory Appointment Lab at [facility] Hematology Oncology [address] [place] [address] 01/30/2025 3:[address] [place] [address] Arturo Cordero MD [facility] DR HEMATOLOGY [place] [address] 01/30/2025 4:15 PM EDT Office Visit Hematology [place] [address] Arturo Cordero MD [facility] DR HEMATOLOGY [place] [address] documented as of this encounter Visit Diagnoses Not on filedocumented in this encounter Care Teams Alumina Plant Supervisor Relationship Specialty Start Date End Date Rodney Padilla MD PCP - General 07/18/22 04/09/24 documented as of this encounter
--- OUTSIDE RECORDS SUMMARY | 2024-04-15 15:49 | XMS_ITS | Encounter Summary ---
Author Organization [facility] [place] [address] Care Team Providers Care Specialist Icu Name Role Phone Rodney Padilla MD Primary Care Provider Unav ailable Reason for Visit * Reason Comments Procedure Knee injection for R t knee Encounter Details Date Type Department Care Team (Late st Contact Info) Description 02/23/2023 3:00 PM EDT Procedure visit Family Medicine at [facility] [address] [place] [address] Shyla Barbosa MD [address] [facility] [place] [address] Chronic pain of right knee; Type 2 [...] 05/01/2024 11:20 AM EDT Appointment Mammography/[place] [address] Rodney Padilla MD 05/01/2024 1:45 PM EDT Office [place] [address] Juanpablo Hernandez MD [facility] [place] [address] 05/23/2024 2:45 PM EST Clinical Support Family Medicine at [facility] [address] [place] [address] Julia Magaña [facility] 01/30/2025 1:30 PM EDT Laboratory Appointment Lab at [facility] Hematology Oncology [address] [place] [address] 01/30/2025 3:[address] [place] [address]1000 Arturo Cordero MD [facility] DR [place] [address] 01/30/2025 4:15 PM EDT Office Visit Hematology [place] [address] Arturo Cordero MD [facility] DR [place] [address] documented as of this encounter Procedures Procedure [...] insulin documented in this encounter Care Teams Specialist Icu Relationship Specialty Start Date End Date Rodney Padilla MD PCP - General 07/18/22 04/09/24 documented as of this encounter
--- OUTSIDE RECORDS SUMMARY | 2024-04-15 15:49 | XMS_ITS | Encounter Summary ---
Author Organization [facility] Address [facility] [place] [address] Care Team Providers Care Hot Mill Tin Roller Name Role Phone Rodney Padilla MD Primary Care Provider Unav ailable Reason for Visit * Reason Comments Medication Refill Encounter Details Date Type Department Care Team (Late st Contact Info) Description 02/26/2023 Refill Family Medicine at [facility] [address] [place] [address] Tamera Khan, [facility] DR LILI [place] [address] Type 2 diabetes mellitus with hyperglycemia, without [...] PM EDT Prescription Renewal Request Name: Alize Gramjao : 1960 Prescription(s) Requested: Requested Prescriptions Pending [...] 05/01/2024 11:20 AM EDT Appointment Mammography/[place] [address] Rodney Padilla MD 05/01/2024 1:45 PM EDT Office [place] [address] Juanpablo Hernandez MD [facility] [place] [address] 05/23/2024 2:45 PM EST Clinical Support Family Medicine at [address] [address] Julia Low, [facility] 01/30/2025 1:30 PM EDT Laboratory Appointment Lab at [facility] Hematology Oncology [address] [place] [address] 01/30/2025 3:[address] [place] [address] Arturo Cordero MD [facility] DR [place] [address] 01/30/2025 4:15 PM EDT Office Visit Hematology [place] [address] Arturo Cordero MD [facility] [address] [place] [address] documented as of this encounter Visit Diagnoses Diagnosis Type 2 diabetes mellitus with hyperglycemia, without long-term current use of insulin documented in this encounter Care Teams Hot Mill Tin Roller Relationship Specialty Start Date End Date Rodney Padilla MD PCP - General 07/18/22 04/09/24 documented as of this encounter
--- OUTSIDE RECORDS SUMMARY | 2024-04-15 15:50 | XMS_ITS | Encounter Summary ---
Author Organization [facility] [place] [address] Care Team Providers Care Newspaper Peddler Name Role Phone Rodney Padilla MD Primary Care Provider Unav ailable Reason for Visit * Reason Comments Diabetes Encounter Details Date Type Department Care Team (Late st Contact Info) Description 01/05/2023 9:00 AM EDT TH Visit (TeleHealth) Family Medicine at [facility] [address] [place] [address] Julia Low, [facility] Type 2 diabetes mellitus without long-term current [...] Progress Notes * Julia Low RPH - 01/05/2023 9:00 AM EDT Clinical Pharmacist [...] any of the following conditions: Yes [x] [place]/Stroke/CAD [] Retinopathy [] CHF [x] Neuropathy [] CKD [x] NAFLD/BARREAR- Qt of fatty liver on CT scan [...] 164 191 159 Daily Avg 176 eA1c 8.789885 Prior Averages: 08/26/21 09/09/21 09/24/21 11/14/21 11/03/22 12/01/22 Daily Avg 157 168 131 138 175 153 eA1c 8.83426 8.46 7.20 7.44 8.7 7.95 Acute complications [...] tablet 5 fluticasone propionate (Flonase) 50 mcg/actuation [place], Suspension 1 spray by Each Nare route [...] spacer 1 each 11 FreeStyle Sanjana 2 [place] Misc 1 each by Other route daily. [...] EDT Appointment Mammography/[place] [address] Rodney Padilla MD 05/01/2024 1:45 PM EDT Office [place] [address] Juanpablo Hernandez MD [facility] [place] [address] 05/23/2024 2:45 PM EST Clinical Support Family Medicine at [address] [phone] Julia Low RPH 01/30/2025 1:30 PM EDT Laboratory Appointment Lab at [facility] Hematology Oncology [address] [place] [address] 01/30/2025 3:[address] [place] [address] Arturo Cordero MD [facility] DR HEMATOLOGY [place] [address] 01/30/2025 4:15 PM EDT Office Visit Hematology [place] [address] Arturo Cordero MD [facility] DR HEMAT[place] [address] documented as of this encounter Visit Diagnoses Diagnosis Type 2 diabetes mellitus without long-term current use of insulin documented in this encounter Care Teams Newspaper Peddler Relationship Specialty Start Date End Date Rodney Padilla MD PCP - General 07/18/22 04/09/24 documented as of this encounter
--- OUTSIDE RECORDS SUMMARY | 2024-04-15 15:50 | XMS_ITS | Encounter Summary ---
Author Organization [facility] [place] [address] Care Team Providers Care Rug Dyer Helper Name Role Phone Rodney Padilla MD Primary Care Provider Unav ailable Encounter Details Date Type Department Care Team (Latest Contact Info) Description 11/30/2022 2:20 PM EDT - 11/30/2022 11:59 PM EDT Hospital Encounter Mammography/[place] [address] Rodney Padilla MD Screening mammogram for breast cancer Discharge Disposition: [...] 09/26/2022 09/19/2023 fluticasone propionate (Flonase) 50 mcg/actuation [place], Suspension 1 spray by Each Nare route [...] 1 each 12/10/2021 02/04/2023 FreeStyle Sanjana 2 [place] MiscIndications:diabe escobar mellitus 1 each by Other [...] AM EDT Appointment Mammography/DXA at [place] [phone] Rodney Padilla MD 05/01/2024 1:45 PM EDT Office Visit Ophthalmology at [place] [phone] Juanpablo Hernandez MD [facility] [place] [address] 05/23/2024 2:45 PM EST Clinical Support Family Medicine at [place] [address] [place] [address] Julia Low [facility] 01/30/2025 1:30 PM EDT Laboratory Appointment Lab at [facility] Hematology Oncology [address] [place] [address] 01/30/2025 3:[address] [place] [address] Arturo Cordero MD [facility] DR HEMATOLOGY [place] [address] 01/30/2025 4:15 PM EDT Office Visit Hematology and Oncology at [facility] [place] [address] Arturo Cordero MD [facility] DR HEMATOLOGY [place] [address] documented as of this encounter Procedures Procedure Name Priority Date/Time Associated Diagnosis Comments MAMMO SCREENING CAD AND FEROZ BILATERAL Routine 11/30/2022 2:59 PM EDT Screening mammogram for breast cancer documented in this encounter Results * Mammo Screening Cad and Feroz Bilateral (11/30/2022 2:59 PM EDT) Anatomical Region [...] cancer documented in this encounter Care Teams Rug Dyer Helper Relationship Specialty Start Date End Date Rodney Padilla MD PCP - General 07/18/22 04/09/24 documented as of this encounter
--- OUTSIDE RECORDS SUMMARY | 2024-04-15 15:50 | XMS_ITS | Encounter Summary ---
Author Organization [facility] [place] [address] Care Team Providers Care Field Marketing Representative Name Role Phone Rodney Padilla MD Primary Care Provider Unav ailable Reason for Visit * Reason Onset Date Comments Diabetes 11/09/2022 Encounter Details Date Type Department Care Team (Late st Contact Info) Description 11/09/2022 1:30 PM EDT Telephone Family Medicine at [facility] [address] [place] [phone] Julia Low, [facility] Diabetes Social History Tobacco Use Types [...] Overnight 153 194 257 142 123 163 227 182 245 181 106 1-November 169 193 179 108 126 2-November 162 199 AM PHI PM BED O/N Average 188 193 204 194 147 118 163 Lowest 162 193 179 142 108 106 163 Highest 227 193 257 245 181 126 163 Daily Avg 173 eA1c 8.751795 Average BG Readings before insulin: 175 Assessment [...] 05/01/2024 11:20 AM EDT Appointment Mammography/[place] [address] Rodney Padilla MD 05/01/2024 1:45 PM EDT Office Visit [place] [address] Juanpablo Hernandez MD [facility] [place] [address] 05/23/2024 2:45 PM EST Clinical Support Family Medicine at [facility] [address] [place] [address] Julia Low RPH 01/30/2025 1:30 PM EDT Laboratory Appointment Lab at [facility] Hematology Oncology [address] [place] [address] 01/30/2025 3:[address] [place] [address] Arturo Cordero MD [facility] DR HEMATOLOGY [place] [address] 01/30/2025 4:15 PM EDT Office Visit Hematology [place] [address] Arturo Cordero MD [facility] DR HEMATOLOGY [place] [address] documented as of this encounter Visit Diagnoses Diagnosis Type 2 diabetes mellitus without long-term current use of insulin documented in this encounter Care Teams Field Marketing Representative Relationship Specialty Start Date End Date Rodney Padilla MD PCP - General 07/18/22 04/09/24 documented as of this encounter
--- OUTSIDE RECORDS SUMMARY | 2024-04-15 15:50 | XMS_ITS | Encounter Summary ---
Author Organization [facility] [place] [address] Care Team Providers Care Health Information Management Director Name Role Phone Rodney Padilla MD Primary Care Provider Unav ailable Reason for Visit * Reason Comments Diabetes Encounter Details Date Type Department Care Team (Late st Contact Info) Description 11/03/2022 12:45 PM EDT TH Visit (TeleHealth) Family Medicine at [facility] [address] [place] [phone] Julia Low, [facility] Type 2 diabetes mellitus without long-term [...] Progress Notes * Julia Low RP - 11/03/2022 12:45 PM EDT Clinical Pharmacist [...] 206 245 138 Daily Avg 175 eA1c 8.224839 Prior Averages: 08/26/21 09/09/21 09/24/21 11/14/21 Daily Avg 157 168 131 138 eA1c 8.793405 8.46 7.20 7.44 Acute complications of diabetes: [...] 5 ??? fluticasone propionate (Flonase) 50 mcg/actuation [place], Suspension 1 spray by Each Nare route [...] 1 each 11 ??? FreeStyle Sanjana 2 [place] Misc 1 each by Other route daily. [...] Cholesterol: Lipid Panel The ASCVD Risk score ([place] DK, et al., 2019) failed to calculate [...] 05/01/2024 11:20 AM EDT Appointment Mammography/[place] [address] Rodney Padilla MD 05/01/2024 1:45 PM EDT Office [place] [address] Juanpablo Hernandez MD [facility] [address] 05/23/2024 2:45 PM EST Clinical Support Family Medicine at [address] [phone] Julia Low RPH 01/30/2025 1:30 PM EDT Laboratory Appointment Lab at [facility] Hematology Oncology [address] [place] [address] 01/30/2025 3:[address] [place] [address] Arturo Cordero MD [facility] DR [place] [address] 01/30/2025 4:15 PM EDT Office Visit Hematology [place] [address] Arturo Cordero MD [facility] DR [place] [address] documented as of this encounter Visit Diagnoses Diagnosis Type 2 diabetes mellitus without long-term current use of insulin documented in this encounter Care Teams Health Information Management Director Relationship Specialty Start Date End Date Rodney Padilla MD PCP - General 07/18/22 04/09/24 documented as of this encounter
--- OUTSIDE RECORDS SUMMARY | 2024-04-15 15:50 | XMS_ITS | Encounter Summary ---
[place] [address] Care Team Providers Care Software Publisher Name Role Phone Rodney Padilla MD Primary Care Provider Unav ailable Reason for Visit * Diagnostic Test (Routine) - Closed Specialty Diagnoses / Procedures Referred By Gonzalez kumari Referred To Contact Radiology Diagnoses Dyspepsia Nausea without vomiting Procedures NM Gastric Emptying Scan Alejandra Pop, FISH WARDEN [address] [place] [address] [place] [address] Referral ID Status Reason Start Date Expiration Date V isits Requested Visits Authorized [id number] Closed Specialty Service Requested 06/17/2022 12/17/2023 1 1 Encounter Details Date Type Department Care Team (Latest Contact Info) Description 10/18/2022 10:22 AM EDT - 10/18/2022 11:59 PM EDT Hospital Encounter [place] [address] Alejandra Pop APRN [address] [place] [address] Discharge Disposition: Home Social History [...] 09/19/2023 fluticasone propionate (Flonase) 50 mcg/actuation [place], Suspension 1 spray by Each Nare route [...] 1 each 12/10/2021 02/04/2023 FreeStyle Sanjana 2 [place] MiscIndications:diabe escobar mellitus 1 each by Other [...] 05/01/2024 11:20 AM EDT Appointment Mammography/[place] [address] Rodney Padilla MD 05/01/2024 1:45 PM EDT Office [place] [address] Juanpablo Hernandez MD [facility] [place] [address] 05/23/2024 2:45 PM EST Clinical Support Family Medicine at [facility] [address] [place] [address] Julia Low, [facility] 01/30/2025 1:30 PM EDT Laboratory Appointment Lab at [facility] Hematology Oncology [address] [place] [address] 01/30/2025 3:[address] [place] [address] Arturo Cordero MD [facility] [place] [address] 01/30/2025 4:15 PM EDT Office Visit Hematology [place] [address] Arturo Crodero MD [facility] DR [place] [address] documented as of this encounter Procedures Procedure [...] have questions please contact the health health and social care teacher that requested your imaging first. ? Electronically signed by: Brett Chapman MD, [facility] ([phone]), at 10/18/2022 3:12 PM Narrative 10/18/2022 3:12 [...] who have questions please contactthe health health and social care teacher that requested your imaging first. Alejandra Pop FISH WARDEN IMG NM ORDERABLE S documented in this encounter Visit Diagnoses Not on filedocumented in this encounter Care Teams Software Publisher Relationship Specialty Start Date End Date Rodney Padilla MD PCP - General 07/18/22 04/09/24 documented as of this encounter
--- OUTSIDE RECORDS SUMMARY | 2024-04-15 15:50 | XMS_ITS | Encounter Summary ---
Author Organization [facility] Address [facility] [place] [address] Care Team Providers Care Human Performance Consultant Name Role Phone Rodney Padilla MD [...] 05/01/2024 11:20 AM EDT Appointment Mammography/DXA at [place] [phone] Rodney Padilla MD 05/01/2024 1:45 PM EDT Office Visit Ophthalmology at [place] [phone] Juanpablo Hernandez MD [facility] [place] [address] 05/23/2024 2:45 PM EST Clinical Support Family Medicine at [place] [address] [place] [address] Julia Low, [facility] 01/30/2025 1:30 PM EDT Laboratory Appointment Lab at [facility] Hematology Oncology [address] [place] [address] 01/30/2025 3:[address] [place] [address] Arturo Cordero MD [facility] [address] HEMATOLOGY [place] [address] 01/30/2025 4:15 PM EDT Office Visit Hematology [place] [address] Arturo Cordero MD [facility] [address] HEMATOLOGY [place] [address] documented as of this encounter Visit Diagnoses Not on filedocumented in this encounter Care Teams Human Performance Consultant Relationship Specialty Start Date End Date Rodney Padilla MD PCP - General 07/18/22 04/09/24 documented as of this encounter
--- OUTSIDE RECORDS SUMMARY | 2024-04-15 15:50 | XMS_ITS | Encounter Summary ---
Author Organization [facility] [place] [address] Care Team Providers Care Press Machine Feeder Name Role Phone Rodney Padilla MD Primary Care Provider Unav ailable Reason for Referral * Diagnostic Test (Routine) - Closed Specialty Diagnoses / Procedures Referred By Contac t Referred To Contact Radiology Diagnoses Dyspepsia Nausea without vomiting Procedures NM Gastric Emptying Scan Alejandra Pop APRN [address] [place] [address] [place] [address] Referral ID Status Reason Start Date Expiration Date V isits Requested Visits Authorized [id number] Closed Specialty Service Requested 06/17/2022 12/17/2023 1 1 Reason for Visit * Diagnostic Test (Routine) - Closed Specialty Diagnoses / Procedures Referred By Contac t Referred To Contact Radiology Diagnoses Dyspepsia Nausea without vomiting Procedures NM Gastric Emptying Scan Alejandra Pop APRN [address] [place] [address] [place] [address] Referral ID Status Reason Start Date Expiration Date V isits Requested Visits Authorized [id number] Closed Specialty Service Requested 06/17/2022 12/17/2023 1 1 Encounter Details Date Type Department Care Team (Latest Contact Info) Description 10/18/2022 10:21 AM EDT Hospital Encounter [place] [address] Alejandra Pop, ALL PURPOSE CLERK [address] [place] [address] Dyspepsia; Nausea without vomiting Discharge Disposition: Home [...] 11/09/2022 insulin needles, disposable, 32 gauge x / NeedleIndications:true betes mellitus Inject 1 each subcutaneously daily. Indications: diabetes 100 each 11 10/05/2022 11/02/2023 nitroGLYcerin (Nitrostat) 0.[address] 1 tablet under the tongue See Admin Instructions. 30 tablet 5 09/26/2022 09/19/2023 fluticasone propionate (Flonase) 50 mcg/actuation [place], Suspension 1 spray by Each Nare route [...] 1 each 12/10/2021 02/04/2023 FreeStyle Sanjana 2 [place] MiscIndications:diabe escobar mellitus 1 each by Other [...] 05/01/2024 11:20 AM EDT Appointment Mammography/[place] [address] Rodney Padilla MD 05/01/2024 1:45 PM EDT Office Visit Ophthalmology at [place] [phone] Juanpablo Hernandez MD [facility] [place] [address] 05/23/2024 2:45 PM EST Clinical Support Family Medicine at [address] [phone] Julia Low, [facility] 01/30/2025 1:30 PM EDT Laboratory Appointment Lab at [facility] Hematology Oncology [address] [place] [address] 01/30/2025 3:[address] [place] [address] Arturo Cordero MD [facility] DR [place] [address] 01/30/2025 4:15 PM EDT Office Visit Hematology [place] [address] Arturo Cordero MD [facility] DR [place] [address] documented as of this encounter Procedures Procedure [...] who have questions please contact the health healthcare prof that requested your imaging first. ? Narrative [...] patients who have questions please contactthe health healthcare prof that requested your imaging first. Alejandra Pop ALL PURPOSE CLERK IMG NM ORDERABLE S documented in [...] mCi documented in this encounter Care Teams Press Machine Feeder Relationship Specialty Start Date End Date Rodney Padilla MD PCP - General 07/18/22 04/09/24 documented as of this encounter
--- OUTSIDE RECORDS SUMMARY | 2024-04-15 15:50 | XMS_ITS | Encounter Summary ---
Author Organization [facility] [place] [address] Care Team Providers Care Mobile Application Development Lead Name Role Phone Rodney Padilla MD Primary Care Provider Unav ailable Reason for Referral * Diagnostic Test (Routine) - Closed Specialty Diagnoses / Procedures Referred By Contac t Referred To Contact Radiology Diagnoses Malignant melanoma of conjunctiva, left Procedures CT Neck Soft Tissue w Contrast (Generic) Arturo Cordero MD [facility] [place] [address] [facility] [place] [address] Referral ID Status Reason Start Date Expiration Date V isits Requested Visits Authorized [id number] Closed Specialty Service Requested 12/29/2022 06/30/2024 1 1 * Diagnostic Test (Routine) - Closed Specialty Diagnoses / Procedures Referred By Contac t Referred To Contact Radiology Diagnoses Malignant melanoma of conjunctiva, left Renal cell cancer, left Procedures CT Chest Abdomen Pelvis w Contrast (Generic) Arturo Cordero MD [facility] [place] [address] [facility] [place] [address] Referral ID Status Reason Start Date Expiration Date V isits Requested Visits Authorized [id number] Closed Specialty Service Requested 12/29/2022 06/30/2024 1 1 Reason for Visit * Diagnostic Test (Routine) - Closed Specialty Diagnoses / Procedures Referred By Contac t Referred To Contact Radiology Diagnoses Malignant melanoma of conjunctiva, left Renal cell cancer, left Procedures CT Chest Abdomen Pelvis w Contrast (Generic) Arturo Cordero MD [facility] [place] [address] [facility] [place] [address] Referral ID Status Reason Start Date Expiration Date V isits Requested Visits Authorized [id number] Closed Specialty Service Requested 12/29/2022 06/30/2024 1 1 Encounter Details Date Type Department Care Team (Latest Contact Info) Description 01/06/2023 12:18 PM EDT - 01/06/2023 11:59 PM EDT Hospital En[place] [address] Arturo Cordero MD [facility] [place] [address] Malignant melanoma of conjunctiva, left; [...] Take 81 mg by mouth daily. Mack Diego U-100 Insulin 100 unit/mL (3 mL) penIndications:type [...] 09/26/2022 09/19/2023 fluticasone propionate (Flonase) 50 mcg/actuation [place], Suspension 1 spray by Each Nare route [...] 1 each 12/10/2021 02/04/2023 FreeStyle Sanjana 2 [place] MiscIndications:diabe escobar mellitus 1 each by Other [...] 05/01/2024 11:20 AM EDT Appointment Mammography/[place] [address] Rodney Padilla MD 05/01/2024 1:45 PM EDT Office Visit [place] [address] Juanpablo Hernandez MD [facility] [place] [address] 05/23/2024 2:45 PM EST Clinical Support Family Medicine at [facility] [address] [place] [phone] Julia Low RPH 01/30/2025 1:30 PM EDT Laboratory Appointment Lab at [facility] Hematology Oncology [address] [place] [address] 01/30/2025 3:[address] [place] [address] Arturo Cordero MD [facility] [place] [address] 01/30/2025 4:15 PM EDT Office Visit Hematology [place] [address] Arturo Cordero MD [facility] [place] [address] documented as of this encounter Procedures Procedure [...] questions please contact the health intensive care nurse that requested your imaging first. [...] after the intravenous administration of 110 mL [id number]. COMPARISON: CT neck 06/23/2022 FINDINGS: No large [...] have questions please contactthe health intensive care nurse that requested your imaging first. Arturo [...] questions please contact the health intensive care nurse that requested your imaging first. [...] have questions please contactthe health intensive care nurse that requested your imaging first. Arturo [...] mLs documented in this encounter Care Teams Mobile Application Development Lead Relationship Specialty Start Date End Date Rodney Padilla MD PCP - General 07/18/22 04/09/24 documented as of this encounter
--- OUTSIDE RECORDS SUMMARY | 2024-04-15 15:50 | XMS_ITS | Encounter Summary ---
[place] [address] Care Team Providers Care Securities Trader Name Role Phone Rodney Padilla MD Primary Care Provider Unav ailable Reason for Visit * Diagnostic Test (Routine) - Closed Specialty Diagnoses / Procedures Referred By Gonzalez kumari Referred To Contact Radiology Diagnoses Dyspepsia Nausea without vomiting Procedures NM Gastric Emptying Scan Alejandra Pop, KETTLE WORKER [address] [place] [address] [place] [address] Referral ID Status Reason Start Date Expiration Date V isits Requested Visits Authorized [id number] Closed Specialty Service Requested 06/17/2022 12/17/2023 1 1 Encounter Details Date Type Department Care Team (Latest Contact Info) Description 10/18/2022 10:22 AM EDT - 10/18/2022 11:59 PM EDT Hospital Encounter [place] [address] Alejandra Pop APRN [address] [place] [address] Discharge Disposition: Home Social History [...] 09/19/2023 fluticasone propionate (Flonase) 50 mcg/actuation [place], Suspension 1 spray by Each Nare route [...] 1 each 12/10/2021 02/04/2023 FreeStyle Sanjana 2 [place] MiscIndications:diabe escobar mellitus 1 each by Other [...] 05/01/2024 11:20 AM EDT Appointment Mammography/[place] [address] Rodney Padilla MD 05/01/2024 1:45 PM EDT [place] [address] Juanpablo Hernandez MD [facility] [place] [address] 05/23/2024 2:45 PM EST Clinical Support Family Medicine at [facility] [address] [place] [address] Julia Low, [facility] 01/30/2025 1:30 PM EDT Laboratory Appointment Lab at [facility] Hematology Oncology [address] [place] [address] 01/30/2025 3:[address] [place] [place] [address] Arturo Cordero MD [facility] [place] [address] 01/30/2025 4:15 PM EDT Office Visit [place] [address] Arturo Cordero MD [facility] [address] [place] [address] documented as of this encounter Procedures Procedure [...] questions please contact the health customer care agent that requested your imaging first. ? Narrative [...] have questions please contactthe health customer care agent that requested your imaging first. Alejandra Pop KETTLE WORKER IMG NM ORDERABLE S documented in this encounter Visit Diagnoses Not on filedocumented in this encounter Care Teams Securities Trader Relationship Specialty Start Date End Date Rodney Padilla MD PCP - General 07/18/22 04/09/24 documented as of this encounter
--- OUTSIDE RECORDS SUMMARY | 2024-04-15 15:50 | XMS_ITS | Encounter Summary ---
Author Organization [facility] Address [facility] [place] [address] Care Team Providers Care Chemical Engineering Professor Name Role Phone Rodney Padilla MD [...] 05/01/2024 11:20 AM EDT Appointment Mammography/DXA at [place] [phone] Rodney Padilla MD 05/01/2024 1:45 PM EDT Office Visit Ophthalmology at [place] [phone] Juanpablo Hernandez MD [facility] [place] [place] [address] 05/23/2024 2:45 PM EST Clinical Support Family Medicine at [place] [address] [place] [address] Julia Low, [facility] 01/30/2025 1:30 PM EDT Laboratory Appointment Lab at [facility] Hematology Oncology [address] [place] [address] 01/30/2025 3:[address] [place] [address] Arturo Cordero MD [facility] [place] [address] 01/30/2025 4:15 PM EDT Office Visit Hematology [place] [address] Arturo Cordero MD [facility] [place] [address] documented as of this encounter Visit Diagnoses Not on filedocumented in this encounter Care Teams Chemical Engineering Professor Relationship Specialty Start Date End Date Rodney Padilla MD PCP - General 07/18/22 04/09/24 documented as of this encounter
--- OUTSIDE RECORDS SUMMARY | 2024-04-15 15:50 | XMS_ITS | Encounter Summary ---
Author Organization [facility] [place] [address] Care Team Providers Care Natural Remedy Consultant Name Role Phone Rodney Padilla MD Primary Care Provider Unav ailable Reason for Visit * Reason Comments Medication Management Encounter Details Date Type Department Care Team (Late st Contact Info) Description 12/01/2022 12:45 PM EDT TH Visit (TeleHealth) Family Medicine at [facility] [address] [place] [address] Julia Low, [facility] Medication management Social History Tobacco Use Types [...] any of the following conditions: Yes [x] ME/Stroke/CAD [] Retinopathy [] CHF [x] Neuropathy [] [...] 182 137 160 Daily Avg 153 eA1c [id number] Prior Averages: 08/26/21 09/09/21 09/24/21 11/14/21 Daily Avg 157 168 131 138 175 eA1c 8.051184 8.46 7.20 7.44 8.7 Acute complications of [...] 5 ??? fluticasone propionate (Flonase) 50 mcg/actuation [place], Suspension 1 spray by Each Nare route [...] ??? Nebulizer Accessories Misc 1 each by Mis.(Non-Drug; Combo Route) route every 4 hours as [...] 1 each 11 ??? FreeStyle Sanjana 2 [place] Misc 1 each by Other route daily. [...] 05/01/2024 11:20 AM EDT Appointment Mammography/[place] [address] Rodney Padilla MD 05/01/2024 1:45 PM EDT Office [place] [address] Juanpablo Hernandez MD [facility] [place] [address] 05/23/2024 2:45 PM EST Clinical Support Family Medicine at [facility] [address] [place] [address] Julia Low RPH 01/30/2025 1:30 PM EDT Laboratory Appointment Lab at [facility] Hematology Oncology [address] [place] [address] 01/30/2025 3:[address] [place] [address] Arturo Cordero MD [facility] DR HEMATOLOGY [place] [address] 01/30/2025 4:15 PM EDT Office Visit Hematology [place] [address] Arturo Cordero MD [facility] HEMATOLOGY [place] [address] documented as of this encounter Visit Diagnoses Diagnosis Medication management Encounter for long-term (current) use of other medications documented in this encounter Care Teams Natural Remedy Consultant Relationship Specialty Start Date End Date Rodney Padilla MD PCP - General 07/18/22 04/09/24 documented as of this encounter
--- OUTSIDE RECORDS SUMMARY | 2024-04-15 15:50 | XMS_ITS | Encounter Summary ---
Author Organization [facility] [place] [address] Care Team Providers Care Reliability Technicians Name Role Phone Rodney Padilla MD Primary Care Provider Unav ailable Encounter Details Date Type Department Care Team (Latest Contact Info) Description 12/29/2022 9:45 AM EDT - 12/29/2022 11:59 PM EDT Hospital Encounter Hematology [place] [address] Malignant melanoma of conjunctiva, left Discharge Disposition: [...] insulin needles, disposable, 32 gauge x NeedleIndications:true betnel mellitus Inject 1 each subcutaneously daily. Indications: diabetes 100 each 11 10/05/2022 11/02/2023 nitroGLYcerin (Nitrostat) 0.[address] 1 tablet under the tongue See Admin Instructions. 30 tablet 5 09/26/2022 09/19/2023 fluticasone propionate (Flonase) 50 mcg/actuation [place], Suspension 1 spray by Each Nare route [...] 1 each 12/10/2021 02/04/2023 FreeStyle Sanjana 2 [place] MiscIndications:diabe escobar mellitus 1 each by Other [...] 05/01/2024 11:20 AM EDT Appointment Mammography/[place] [address] Rodney Padilla MD 05/01/2024 1:45 PM EDT Office [place] [phone] Juanpablo Hernandez MD [facility] OPHTHALMOLOGY [place], [place] [phone] 05/23/2024 2:45 PM EST Clinical Support Family Medicine at [address] [address] Julia Low [facility] 01/30/2025 1:30 PM EDT Laboratory Appointment Lab at [facility] Hematology Oncology [address] [place] [address] 01/30/2025 3:[address] [place] [address] Arturo Cordero MD [facility] DR HEMATOLOGY [place] [address] 01/30/2025 4:15 PM EDT Office Visit Hematology and Oncology at [facility] [place] [address] Arturo Cordero MD [facility] DR HEMATOLOGY [place] [address] documented as of this encounter Procedures Procedure [...] 10:00 AM EDT) Neutrophil % 66.5 % [facility] Neutrophil Absolute 4.82 1.70 - 6.10 x10(3)/[facility] LABORATORY Lymph % 24.4 % [facility] Lymphocytes Abs 1.8 0.9 - 3.2 x10(3)/[facility] LABORATORY Monocyte % 6.4 % [facility] H[facility] ITAL LAB[facility] Monocyte Abs 0.5 0.3 - 0.9 x10(3)/[facility] LABORATORY Eos % 1.7 % [facility] Eosinophils Abs 0.1 0.0 - 0.4 x10(3)/[facility] LABORATORY Basophil % 0.7 % [facility] ITAL LABORATORY Baso Absolute 0.0 0.0 - 0.1 x10(3)/[facility] LABORATORY Immature Gran % 0.30 % [facility] Comment: Immature granulocytes(IG's)percentage and absolute count will include metamyelocytes, myelocytes, and promyelocytes. Blood smears from CBCs yielding IG's will be scanned manually for concordance. If this scan disagrees with the automated IG or if promyelocytes are noted, a manual differential will be performed. Immature Gran Absolute 0.02 0.00 - 0.04 x10(3)/[facility] LABORATORY Blood 12/29/2022 10:0 0 AM EDT 12/29/2022 10:13 AM EDT Narrative Resulting Agency Comment Spec In Lab Mer Trejo MD HEMATOLOGY ORDER SHYLA [facility] [place] [address] * (ABNORMAL) Hemogram (12/29/2022 10:00 AM EDT) White Blood Cell 7.2 4.0 - 9.5 x10(3)/[facility] LABORATORY Red Blood Cell 4.67 4.00 - 5.21 x10(6)/[facility] LABORATORY Hemoglobin 13.1 11.7 - 15.5 g/dL [facility] Hematocrit 39.8 35.7 - 45.8 % [facility] Mean Cell Volume 85.2 82.6 - 94.4 fL [facility] Mean Cell Hemoglobin 28.1 27.1 - 32.0 pg [facility] Mean Cell Hemoglobin Concentration 32.9 31.7 - 35.0 g/dL [facility] Platelet 362(H) 145 - 357 x10(3)/[facility] LABORATORY RDW Standard Deviation 45.0 37.0 - 46.0 fL [facility] RDW coefficient of variation 14.6(H) 11.5 - 14.1 % [facility] Mean Platelet Volume 9.3 7.6 - 12.9 fL [facility] NRBC% auto 0.0 % [facility] ITAL LABORATORY NRBC Absolute 0.000 0.000 - 0.000 x10(3)/[facility] LABORATORY Blood 12/29/2022 10:0 0 AM EDT 12/29/2022 10:13 AM EDT Narrative Resulting Agency Comment Spec In Lab Authorizing Provider Result Dayna Mer Pablo Faheem Trejo MD HEMATOLOGY ORDER SHYLA [facility] [address] [place] [address] * (ABNORMAL) Comprehensive metabolic panel (non-fasting) (12/29/2022 10:00 AM EDT) Glucose 259(H) 65 - 199 mg/dL [facility] Comment:Diabetes: >=200 mg/d L plus symptoms Blood Urea Nitrogen 17 8 - 18 mg/dL [facility] Creatinine 0.84 0.70 - 1.20 mg/dL [facility] Sodium 140 135 - 145 mmol/L [facility] Potassium 4.5 3.5 - 5.0 mmol/L [facility] Comment: Please note: ??Patients with WBC >100,000 may have falsely elevated Potassium levels. ??For accurate Potassium quantification in these patients send serum separator tube (gold top) for subsequent determinations. ??Contact the Clinical Chemistry Laboratory if there are any questions. Chloride 104 98 - 107 mmol/L [facility] Carbon Dioxide 23 22 - 31 mmol/L [facility] Anion Gap 13 5 - 15 mmol/L [facility] Calcium 9.5 8.5 - 10.5 mg/dL [facility] Protein, Total 6.9 6.1 - 8.0 g/dL [facility] Albumin 4.1 3.2 - 5.2 g/dL [facility] Aspartate Aminotransferase 19 0 - 30 unit/L [facility] Alanine Aminotransferase 24 0 - 30 unit/L [facility] Alkaline Phosphatase 103 35 - 105 unit/L [facility] Bilirubin, Total 0.3 0.2 - 1.3 mg/dL [facility] Est Glomerular Filtration Rate 78 >=60 mL/min/1. 73 m?? [facility] Comment: This patient's estimated GFR [...] Cordero MD CHEMISTRY ORDERABLES Performing Organization Address City/[facility]/ZIP Co de Phone Number [facility] [place] [address] * Lactate Dehydrogenase (12/29/2022 10:00 AM EDT) Lactate Dehydrogenase 175 110 - 220 unit/L [facility] Blood 12/29/2022 10:0 0 AM EDT 12/29/2022 10:13 AM EDT Narrative Resulting Agency Comment Spec In Lab Arturo Cordero MD CHEMISTRY ORDERABLES Performing Organization Address City/[facility] Co de Phone Number [facility] [place] [address] documented in this encounter Visit Diagnoses Diagnosis Malignant melanoma of conjunctiva, left documented in this encounter Care Teams Reliability Technicians Relationship Specialty Start Date End Date Rodney Padilla MD PCP - General 07/18/22 04/09/24 documented as of this encounter
--- OUTSIDE RECORDS SUMMARY | 2024-04-15 15:50 | XMS_ITS | Encounter Summary ---
Author Organization [place] [address] Care Team Providers Care Pharmacy Benefits Coordinator Name Role Phone Rodney Padilla MD Primary Care Provider Unav ailable Reason for Referral * Diagnostic Test (Routine) - Closed Specialty Diagnoses / Procedures Referred By Contac t Referred To Contact Radiology Diagnoses Malignant melanoma of conjunctiva, left Procedures CT Neck Soft Tissue w Contrast (Generic) Arturo Cordero MD [facility] [address] [place] [address] [facility] [place] [address] Referral ID Status Reason Start Date Expiration Date V isits Requested Visits Authorized [id number] Closed Specialty Service Requested 12/29/2022 06/30/2024 1 1 * Diagnostic Test (Routine) - Closed Specialty Diagnoses / Procedures Referred By Contac t Referred To Contact Radiology Diagnoses Malignant melanoma of conjunctiva, left Renal cell cancer, left Procedures CT Chest Abdomen Pelvis w Contrast (Generic) Arturo Cordero MD [facility] [address] [place] [address] [facility] [place] [address] Referral ID Status Reason Start Date Expiration Date V isits Requested Visits Authorized [id number] Closed Specialty Service Requested 12/29/2022 06/30/2024 1 1 * Diagnostic Test (Routine) - Closed Specialty Diagnoses / Procedures Referred By Contac t Referred To Contact Radiology Diagnoses Malignant melanoma of conjunctiva, left Procedures CT Neck Soft Tissue w Contrast (Generic) Arturo Cordero MD [facility] [address] [place] [address] [facility] [place] [address] Referral ID Status Reason Start Date Expiration Date V isits Requested Visits Authorized [id number] Closed Specialty Service Requested 12/29/2022 06/30/2024 1 1 * Diagnostic Test (Routine) - Closed Specialty Diagnoses / Procedures Referred By Contac t Referred To Contact Radiology Diagnoses Malignant melanoma of conjunctiva, left Renal cell cancer, left Procedures CT Chest Abdomen Pelvis w Contrast (Generic) Arturo Cordero MD [facility] [address] [place] [address] [facility] [place] [address] Referral ID Status Reason Start Date Expiration Date V isits Requested Visits Authorized [id number] Closed Specialty Service Requested 12/29/2022 06/30/2024 1 1 Reason for Visit * Reason Comments Follow-up Encounter Details Date Type Department Care Team (Late st Contact Info) Description 12/29/2022 12:45 PM EDT Office Visit Hematology [place] [address] Arturo Cordero MD [facility] [address] [place] [address] Malignant melanoma of conjunctiva, left [...] from the original note were not included. [facility] NOTE REFERING PHYSICIAN: Dr. Juanpablo [...] management - fall 2018: saw a new driller portable and was referred to Dr. 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 Medina - 03/31/2020: saw her driller portable Dr. 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 10/09/2007 History of [...] 3.47) performed by Juanpablo Hernandez MD at [facility] OSC PRO EXCIS CORNEA LESN Left 05/14/2020 EXCISION OF LESION, CORNEA, EXCEPT PTERYGIUM (WRVU 7.5) performed by Juanpablo Hernandez MD at [facility] OSC PRO LAP, PARTIAL NEPHRECTOMY Left 06/28/2019 LAPAROSCOPY, PARTIAL NEPHRECTOMY, ROBOTIC ASSIST (WRVU 27.41) performed by Avila Medina MD at [facility] MAIN OR PRO PLACE AMNIOTIC MEMBRANE OCULAR SURFACE;SINGLE LAYER SUTURED Left 05/14/2020 PLACEMENT OF AMNIOTIC MEMBRANE ON THE OCULAR SURFACE,SINGLE LAYER,SUTURED (WRVU 2.5) performed by Juanpablo Hernandez MD at [facility] OSC MEDS: Alcohol Swabs, LORazepam, [...] with significant other 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 [address] 05/23/2024 2:45 PM EST Clinical Support Family Medicine at [address] [address] Julia Low [facility] 01/30/2025 1:30 PM EDT Laboratory Appointment Lab at [facility] Hematology Oncology [address] [place] [address] 01/30/2025 3:[address] [place] [address] Arturo Cordero MD [facility] DR [place] [address] 01/30/2025 4:15 PM EDT Office Visit Hematology [place] [address] Arturo Cordero MD [facility] [address] [place] [address] documented as of this encounter Results * [...] have questions please contact the health health careers instructor that requested your imaging first. ? Narrative [...] The orbits are not included within the cmwjl-oy-bzjx. No masses along the visualized upper aerodigestive [...] The orbits are not included within the svleo-xu-szjr. No masses alongthe visualized upper aerodigestive tract. [...] who have questions please contactthe health health careers instructor that requested your imaging first. Arturo Cordero [...] have questions please contact the health health careers instructor that requested your imaging first. ? Electronically signed by: Zain Izaguirre MD, [facility] ([phone]), at 08/03/2023 4:55 PM Narrative 08/03/2023 4:55 [...] who have questions please contactthe health health careers instructor that requested your imaging first. Electronically signed by: Zain Izaguirre MD, [facility]([phone]), at 08/03/2023 4:55 PM Arturo Cordero MD [...] have questions please contact the health health careers instructor that requested your imaging first. ? Narrative [...] after the intravenous administration of 110 mL [id number]. COMPARISON: CT neck 06/23/2022 FINDINGS: No large [...] who have questions please contactthe health health careers instructor that requested your imaging first. Arturo Cordero [...] have questions please contact the health health careers instructor that requested your imaging first. ? Electronically signed by: Leo Camilo MD, [facility] ([phone]), at 01/06/2023 4:13 PM Narrative 01/06/2023 4:13 PM EDT EXAMINATION: CT [...] who have questions please contactthe health health careers instructor that requested your imaging first. Arturo Codrero MD IMG CT ORDERABLES documented in this encounter Visit Diagnoses Diagnosis Malignant melanoma of conjunctiva, left- Primary Renal cell cancer, left Malignant melanoma of conjunctiva, left Renal cell cancer, left Malignant melanoma of conjunctiva, left Renal cell cancer, left documented in this encounter Care Teams Pharmacy Benefits Coordinator Relationship Specialty Start Date End Date Rodney Padilla MD PCP - General 07/18/22 04/09/24 documented as of this encounter
--- OUTSIDE RECORDS SUMMARY | 2024-04-15 15:50 | XMS_ITS | Encounter Summary ---
Author Organization [facility] Address [facility] [place] [address] Care Team Providers Care Scientific Publications Editor Name Role Phone Rodney Padilla MD Primary Care Provider Unav ailable Reason for Visit * Reason Onset Date Comments Medication Problem 11/08/2022 Tresiba Encounter Details Date Type Department Care Team (Late st Contact Info) Description 11/08/2022 Telephone Family Medicine at [facility] [address] [place] [phone] Rodney Padilla MD Medication Problem (Tresiba /) Social History Tobacco [...] 05/01/2024 11:20 AM EDT Appointment Mammography/[place] [address] Rodney Padilla MD 05/01/2024 1:45 PM EDT Office Visit [place] [address] [facility] [place] [address] 05/23/2024 2:45 PM EST Clinical Support Family Medicine at [address] [address] Julia Low, [facility] 01/30/2025 1:30 PM EDT Laboratory Appointment Lab at [facility] Hematology Oncology [address] [place] [address] 01/30/2025 3:[address] [place] [address] [facility] [address] [place] [address] 01/30/2025 4:15 PM EDT Office Visit Hematology [place] [address] [facility] [address] [place] [address] documented as of this encounter Visit Diagnoses Not on filedocumented in this encounter Care Teams Scientific Publications Editor Relationship Specialty Start Date End Date Rodney Padilla MD PCP - General 07/18/22 04/09/24 documented as of this encounter
--- OUTSIDE RECORDS SUMMARY | 2024-04-15 15:50 | XMS_ITS | Encounter Summary ---
[place] [address] Care Team Providers Care Model Home Sales Greeter Name Role Phone Rodney Padilla MD Primary Care Provider Unav ailable Reason for Visit * Diagnostic Test (Routine) - Closed Specialty Diagnoses / Procedures Referred By Gonzalez kumari Referred To Contact Radiology Diagnoses Dyspepsia Nausea without vomiting Procedures NM Gastric Emptying Scan Alejandra Pop, SCOUT LEASER [address] [place] [address] [place] [address] Referral ID Status Reason Start Date Expiration Date V isits Requested Visits Authorized [id number] Closed Specialty Service Requested 06/17/2022 12/17/2023 1 1 Encounter Details Date Type Department Care Team (Latest Contact Info) Description 10/18/2022 10:22 AM EDT - 10/18/2022 11:59 PM EDT Hospital Encounter [place] [address] Alejandra Pop APRN [address] [place] [address] Discharge Disposition: Home Social History [...] 09/26/2022 09/19/2023 fluticasone propionate (Flonase) 50 mcg/actuation [place], Suspension 1 spray by Each Nare route [...] 1 each 12/10/2021 02/04/2023 FreeStyle Sanjana 2 [place] MiscIndications:diabe escobar mellitus 1 each by Other [...] 05/01/2024 11:20 AM EDT Appointment Mammography/[place] [address] Rodney Padilla MD 05/01/2024 1:45 PM EDT Office [place] [address] Juanpablo Hernandez MD [facility] [place] [address] 05/23/2024 2:45 PM EST Clinical Support Family Medicine at [facility] [address] [place] [address] Julia Low, [facility] 01/30/2025 1:30 PM EDT Laboratory Appointment Lab at [facility] Hematology Oncology [address] [place] [address] 01/30/2025 3:[address] [place] [phone] Arturo Cordero MD [facility] HEMATOLOGY [place] [address] 01/30/2025 4:15 PM EDT Office Visit Hematology [place] [phone] Arturo Cordero MD [facility] DR HEMATOLOGY [place] [address] documented as of this encounter Procedures Procedure [...] who have questions please contact the health progressive care nurse that requested your imaging first. [...] 10% at four hours) Procedure Note Brett Chapmna MD - 10/18/2022 EXAMINATION: NM GASTRIC EMPTYING [...] patients who have questions please contactthe health progressive care nurse that requested your imaging first. Alejandra Pop SCOUT LEASER IMG NM ORDERABLE S documented in this encounter Visit Diagnoses Not on filedocumented in this encounter Care Teams Model Home Sales Greeter Relationship Specialty Start Date End Date Rodney Padilla MD PCP - General 07/18/22 04/09/24 documented as of this encounter
--- OUTSIDE RECORDS SUMMARY | 2024-04-15 15:50 | XMS_ITS | Encounter Summary ---
Author Organization [facility] Address [facility] [place] [address] Care Team Providers Care Tape Deck Installer Name Role Phone Rodney Padilla MD Primary [...] AM EDT Appointment Mammography/DXA at [place] [phone] Rodney Padilla MD 05/01/2024 1:45 PM EDT Office Visit Ophthalmology at [place] [phone] Juanpablo Hernandez MD [facility] [place] [address] 05/23/2024 2:45 PM EST Clinical Support Family Medicine at [place] [address] [place] [address] Julia Low, [facility] 01/30/2025 1:30 PM EDT Laboratory Appointment Lab at [facility] Hematology Oncology [address] [place] [address] 01/30/2025 3:[address] [place] [address] Arturo Cordero MD [facility] DR HEMATOLOGY [place] [address] 01/30/2025 4:15 PM EDT Office Visit [place]ematology [place] [address] Arturo Cordero MD [facility] DR HEMATOLOGY [place] [address] documented as of this encounter Visit Diagnoses Not on filedocumented in this encounter Care Teams Tape Deck Installer Relationship Specialty Start Date End Date Rodney Padilla MD PCP - General 07/18/22 04/09/24 documented as of this encounter
--- OUTSIDE RECORDS SUMMARY | 2024-04-15 15:50 | XMS_ITS | Encounter Summary ---
Author Organization [facility] Address [facility] [address] Care Team Providers Care Mutual Fund Manager Name Role Phone Rodney Padilla MD [...] 05/01/2024 11:20 AM EDT Appointment Mammography/DXA at [place] [phone] Rodney Padilla MD 05/01/2024 1:45 PM EDT Office Visit Ophthalmology at [place] [phone] [facility] [place] [address] 05/23/2024 2:45 PM EST Clinical Support Family Medicine at [place] [address] [place] [address] Julia Low, [facility] 01/30/2025 1:30 PM EDT Laboratory Appointment Lab at [facility] Hematology Oncology [address] [place] [address] 01/30/2025 3:[address] [place] [address] [facility] [address] [place] [address] 01/30/2025 4:15 PM EDT Office Visit [place] [address] [facility] [address] [place]AT[place] [address] documented as of this encounter Visit Diagnoses Not on filedocumented in this encounter Care Teams Mutual Fund Manager Relationship Specialty Start Date End Date Rodney Padilla MD PCP - General 07/18/22 04/09/24 documented as of this encounter
--- OUTSIDE RECORDS SUMMARY | 2024-04-15 15:50 | XMS_ITS | Encounter Summary ---
Author Organization [facility] Address [facility] [place] [address] Care Team Providers Care Corncob Pipe Supervisor Name Role Phone Rodney Padilla MD Primary Care Provider Unav ailable Encounter Details Date Type Department Care Team (Late st Contact Info) Description 11/30/2022 4:20 PM EDT Office Visit Dermatology at [facility] [address] [place] [address] Alonso Young MD [facility] [address] LILI [place] [address] Seborrheic keratoses; Multiple nevi; Lentigines; Aranda angioma; [...] a full skin exam. []Note routed to secretary office clerk [x]Recall placed in scheduling system []Appointment scheduled at checkout Scribe attestation: SONY Lal has performed the documentation for this encounter in the presence of and acting as a scribe for Alonso Young MD. I performed the above scribed service and agree with the accuracy of the documentation in this encounter. Reviewed and signed by: Alonso Young MD Dermatology [facility] Patient seen and evaluated with staff hogshead dumper: Ren Mitchell MD Dermatology [facility] * Ren Mitchell MD - 11/30/2022 [...] EDT Appointment Mammography/[place] [address] Rodney Padilla MD 05/01/2024 1:45 PM EDT Office [place] [address] Juanpablo Hernandez MD [facility] [place] [address] 05/23/2024 2:45 PM EST Clinical Support Family Medicine at [facility] [address] [place] [address] Julia Low, [facility] 01/30/2025 1:30 PM EDT Laboratory Appointment Lab at [facility] Hematology Oncology [address] [place] [address] 01/30/2025 3:[address] [place] [address] Arturo Cordero MD [facility] [address] HEMATOLOGY [place] [address] 01/30/2025 4:15 PM EDT Office Visit Hematology [place] [phone] Arturo Cordero MD [facility] [address] HEMATOLOGY [place] [address] documented as of this encounter Visit Diagnoses Diagnosis Seborrheic keratoses Multiple nevi Benign neoplasm of skin, site unspecified Lentigines Other dyschromia Aranda angioma Nevus, non-neoplastic History of malignant melanoma of eye Family history of other specified malignant neoplasm Seborrheic keratoses, inflamed documented in this encounter Care Teams Corncob Pipe Supervisor Relationship Specialty Start Date End Date Rodney Padilla MD PCP - General 07/18/22 04/09/24 documented as of this encounter
--- OUTSIDE RECORDS SUMMARY | 2024-04-15 15:50 | XMS_ITS | Encounter Summary ---
Author Organization [facility] Address [facility] [place] [place] [address] Care Team Providers Care Coagulant Dipper Name Role Phone Rodney Padilla MD Primary [...] 05/01/2024 11:20 AM EDT Appointment Mammography/DXA at [place] [phone] Rodney Padilla MD 05/01/2024 1:45 PM EDT Office Visit Ophthalmology at [place] [phone] Juanpablo Hernandez MD [facility] [place] [address] 05/23/2024 2:45 PM EST Clinical Support Family Medicine at [place] [address] [place] [address] Julia Low, [facility] 01/30/2025 1:30 PM EDT Laboratory Appointment Lab at [facility] Hematology Oncology [address] [place] [address] 01/30/2025 3:[address] [place] [address] Arturo Cordero MD [facility] DR [place] [address] 01/30/2025 4:15 PM EDT Office Visit Hematology [place] [address] Arturo Cordero MD [facility] DR [place] [address] documented as of this encounter Visit Diagnoses Not on filedocumented in this encounter Care Teams Coagulant Dipper Relationship Specialty Start Date End Date Rodney Padilla MD PCP - General 07/18/22 04/09/24 documented as of this encounter
--- OUTSIDE RECORDS SUMMARY | 2024-04-15 15:50 | XMS_ITS | Encounter Summary ---
Author Organization [facility] [place] [address] Care Team Providers Care Strategic Analyst Name Role Phone Daryn Garrett MD Primary Care Provider Reason for Visit * Reason Onset Date Comments Medication Refill 11/07/2022 Encounter Details Date Type Department Care Team (Late st Contact Info) Description 11/07/2022 Refill Family Medicine at [facility] [address] [place] [address] Rodney Padilla MD Type 2 diabetes mellitus [...] 05/01/2024 11:20 AM EDT Appointment Mammography/[place] [address] Rodney Padilla MD 05/01/2024 1:45 PM EDT [place] [address] Juanpablo Hernandez MD [facility] [place] [address] 05/23/2024 2:45 PM EST Clinical Support Family Medicine at [facility] [address] [place] [address] Julia Low, [facility] 01/30/2025 1:30 PM EDT Laboratory Appointment Lab at [facility] Hematology Oncology [address] [place] [address] 01/30/2025 3:[address] [place] [address] Arturo Cordero MD [facility] DR HEMATOLOGY [place] [address] 01/30/2025 4:15 PM EDT Office Visit [place] [address] Arturo Cordero MD [facility] DR HEMATOLOGY [place] [address] documented as of this encounter Visit Diagnoses Diagnosis Type 2 diabetes mellitus without long-term current use of insulin documented in this encounter Care Teams Strategic Analyst Relationship Specialty Start Date End Date Daryn Garrett MD [facility] DR LILI [place] [address] PCP - General 04/10/24 documented as of this encounter
--- OUTSIDE RECORDS SUMMARY | 2024-04-15 15:50 | XMS_ITS | Encounter Summary ---
Author Organization [facility] Address [facility] [place] [address] Care Team Providers Care Chief Of Pediatric Urology Name Role Phone Rodney Padilla MD Primary Care Provider Unav ailable Reason for Visit * Reason Comments Medication Refill Encounter Details Date Type Department Care Team (Late st Contact Info) Description 12/15/2022 Refill Family Medicine at [facility] [address] [place] [address] Luis E Narayan MD [facility] DR LILI [place] [address] Mixed hyperlipidemia Social History Tobacco Use Types [...] 05/01/2024 11:20 AM EDT Appointment Mammography/[place] [address] Rodney Padilla MD 05/01/2024 1:45 PM EDT Office Visit Ophthalmology at [place] [phone] Juanpablo Hernandez MD [facility] [address] 05/23/2024 2:45 PM [facility] Clinical Support Family Medicine at [address] [address] Julia Low [facility] 01/30/2025 1:30 PM EDT Laboratory Appointment Lab at [facility] Hematology Oncology [address] [place] [address] 01/30/2025 3:[address] Scan at [place] [phone] Arturo Cordero MD [facility] DR [place] [address] 01/30/2025 4:15 PM EDT Office Visit Hematology [place] [address] Arturo Cordero MD [facility] DR [place] [address] documented as of this encounter Visit Diagnoses Diagnosis Mixed hyperlipidemia documented in this encounter Care Teams Chief Of Pediatric Urology Relationship Specialty Start Date End Date Rodney Padilla MD PCP - General 07/18/22 04/09/24 documented as of this encounter
--- OUTSIDE RECORDS SUMMARY | 2024-04-15 15:51 | XMS_ITS | Encounter Summary ---
Author Organization [facility] Address [facility] [place] [address] Care Team Providers Care Gas Turbine Mechanic Name Role Phone Luis E Narayan MD Primary Care Provider [phone]- [phone] Encounter Details Date Type Department Care Team [...] 05/01/2024 11:20 AM EDT Appointment Mammography/[place] [address] Rodney Padilla MD 05/01/2024 1:45 PM EDT [place] [address] Juanpablo Hernandez MD [facility] [place] [address] 05/23/2024 2:45 PM EST Clinical Support Family Medicine at [address] [phone] Julia Low, [facility] 01/30/2025 1:30 PM EDT Laboratory Appointment Lab at [facility] Hematology Oncology [address] [place] [address] 01/30/2025 3:[address] [place] [place] [address] Arturo Cordero MD [facility] HEMATOLOGY [place] [address] 01/30/2025 4:15 PM EDT Office Visit [place]ology [place] [address] Arturo Cordero MD [facility] HEMATOLOGY [place] [address] documented as of this encounter Visit Diagnoses Not on filedocumented in this encounter Care Teams Gas Turbine Mechanic Relationship Specialty Start Date End Date Luis E Narayan MD [facility] [address] [place] [address] PCP - General Family Medicine 01/20/22 07/17/22 documented as of this encounter
--- OUTSIDE RECORDS SUMMARY | 2024-04-15 15:51 | XMS_ITS | Encounter Summary ---
[place] [address] Care Team Providers Care Ultrasound Manager Name Role Phone Luis E Narayan MD Primary Care Provider [phone]- [phone] Reason for Referral * Diagnostic Test (Routine) - Closed Specialty Diagnoses / Procedures Referred By Gonzalez kumari Referred To Contact Radiology Diagnoses Dyspepsia Nausea without vomiting Procedures NM Gastric Emptying Scan Alejandra Pop APRN [address] [place] [address] [place] [address] Referral ID Status Reason Start Date Expiration Date V isits Requested Visits Authorized [id number] Closed Specialty Service Requested 06/17/2022 12/17/2023 1 1 Encounter Details Date Type Department Care Team (Late st Contact Info) Description 06/17/2022 Orders [place] [address] Alejandra Pop APRN [address] [place] [address] Dyspepsia; Nausea without vomiting Social [...] 05/01/2024 11:20 AM EDT Appointment Mammography/[place] [address] Rodney Padilla MD 05/01/2024 1:45 PM EDT Office [place] [address] Juanpablo Hernandez MD [facility] [place] [address] 05/23/2024 2:45 PM [facility] Clinical Support Family Medicine at [facility] [address] [place] [address] Julia Low, [facility] 01/30/2025 1:30 PM EDT Laboratory Appointment Lab at [facility] Hematology Oncology [address] [place] [address]30[address] 01/30/2025 3:[address] [place] [address] Arturo Cordero MD [facility] HEMATOLOGY [place] [address] 01/30/2025 4:15 PM EDT Office Visit Hematology [place] [address] Arturo Cordero MD [facility] DR HEMATOLOGY [place] [address] documented as of this encounter Results * [...] have questions please contact the health healthcare translator that requested your imaging first. ? Narrative [...] who have questions please contactthe health healthcare translator that requested your imaging first. Alejandra Pop FLY FRAME TENDER IMG NM ORDERABLE S documented in this encounter Visit Diagnoses Diagnosis Dyspepsia Dyspepsia and other specified disorders of function of stomach Nausea without vomiting Dyspepsia Dyspepsia and other specified disorders of function of stomach Nausea without vomiting documented in this encounter Care Teams Ultrasound Manager Relationship Specialty Start Date End Date Luis E Narayan MD [facility] [address] [place] [address] PCP - General Family Medicine 01/20/22 07/17/22 documented as of this encounter
--- OUTSIDE RECORDS SUMMARY | 2024-04-15 15:51 | XMS_ITS | Encounter Summary ---
Author Organization [facility] Address [facility] [place] [address] Care Team Providers Care Steel Worker Name Role Phone Rodney Padilla MD Primary Care Provider Unav ailable Reason for Visit * Reason Onset Date Comments Medication Refill 09/25/2022 Encounter Details Date Type Department Care Team (Late st Contact Info) Description 09/25/2022 Refill Family Medicine at [facility] [address] [place] [address] Luis E Narayan MD [facility] DR LILI [place] [address] Social History Tobacco Use Types Packs/Day Years [...] Notes * Telephone Encounter - Alba Bolton [facility] 09/26/2022 11:41 AM EDT Prescription Renewal Request Name: Alize Gramajo : 1960 Prescription(s) Requested: Requested Prescriptions Pending Prescriptions Disp Refills ??? fluticasone propionate (Flonase) 50 mcg/actuation [place], Suspension 16 g 11 Si spray by [...] 05/01/2024 11:20 AM EDT Appointment Mammography/[place] [address] Rodney Padilla MD 05/01/2024 1:45 PM EDT Office [place] [address] Juanpablo Hernandez MD [facility] [place] [address] 05/23/2024 2:45 PM EST Clinical Support Family Medicine at [address] [phone] Julia Low, [facility] 01/30/2025 1:30 PM EDT Laboratory Appointment Lab at [facility] Hematology Oncology [address] [place] [address] 01/30/2025 3:[address] [place] [address] Arturo Cordero MD [facility] DR [place] [address] 01/30/2025 4:15 PM EDT Office Visit [place]ology [place] [address] Arturo Cordero MD [facility] DR [place] [address] documented as of this encounter Visit Diagnoses Not on filedocumented in this encounter Care Teams Steel Worker Relationship Specialty Start Date End Date Rodney Padilla MD PCP - General 07/18/22 04/09/24 documented as of this encounter
--- OUTSIDE RECORDS SUMMARY | 2024-04-15 15:51 | XMS_ITS | Encounter Summary ---
Author Organization [facility] Address [facility] [place] [address] Care Team Providers Care Valve Inserter Name Role Phone Luis E Narayan MD Primary Care Provider [phone]- [phone] Encounter Details Date Type Department Care Team [...] 05/01/2024 11:20 AM EDT Appointment Mammography/[place] [address] Rodney Padilla MD 05/01/2024 1:45 PM EDT [place] [address] Juanpablo Hernandez MD [facility] [place] [address] 05/23/2024 2:45 PM EST Clinical Support Family Medicine at [address] [phone] Julia Low, [facility] 01/30/2025 1:30 PM EDT Laboratory Appointment Lab at [facility] Hematology Oncology [address] [place] [address] 01/30/2025 3:[address] [place] [place] [address] Arturo Cordero MD [facility] [place] [address] 01/30/2025 4:15 PM EDT Office Visit [place] [address] Arturo Cordero MD [facility] [place] [address] documented as of this encounter Visit Diagnoses Not on filedocumented in this encounter Care Teams Valve Inserter Relationship Specialty Start Date End Date Luis E Narayan MD [facility] [address] [place] [address] PCP - General Family Medicine 01/20/22 07/17/22 documented as of this encounter
--- OUTSIDE RECORDS SUMMARY | 2024-04-15 15:51 | XMS_ITS | Encounter Summary ---
Author Organization [facility] Address [facility] [place] [address] Care Team Providers Care Rural Route Mail Carrier Name Role Phone Rodney Padilla MD Primary Care Provider Unav ailable Reason for Visit * Reason Onset Date Comments Medication Refill 09/25/2022 Encounter Details Date Type Department Care Team (Late st Contact Info) Description 09/25/2022 Refill Family Medicine at [facility] [address] [place] [address] [address] [facility] DR L[place] [address] Social History Tobacco Use Types Packs/Day Years [...] Notes * Telephone Encounter - Alba Bolton [facility] - 09/26/2022 11:40 AM EDT Prescription Renewal [...] 05/01/2024 11:20 AM EDT Appointment Mammography/[place] [address] Rodney Padilla MD 05/01/2024 1:45 PM EDT Office Visit Ophthalmology at [place] [phone] [facility] [place] [address] 05/23/2024 2:45 PM EST Clinical Support Family Medicine at [address] [phone] Julia Low, [facility] 01/30/2025 1:30 PM EDT Laboratory Appointment Lab at [facility] Hematology Oncology [address] [place] [address] 01/30/2025 3:[address] [place] [address] [facility] [place] [address] 01/30/2025 4:15 PM EDT Office Visit Hematology [place] [address] [facility] [place] [address] documented as of this encounter Visit Diagnoses Not on filedocumented in this encounter Care Teams Rural Route Mail Carrier Relationship Specialty Start Date End Date Rodney Padilla MD PCP - General 07/18/22 04/09/24 documented as of this encounter
--- OUTSIDE RECORDS SUMMARY | 2024-04-15 15:51 | XMS_ITS | Encounter Summary ---
Author Organization [facility] Address [facility] [place] [address] Care Team Providers Care Joiner Helper Name Role Phone Luis E Narayan MD Primary Care Provider [phone] [phone] Encounter Details Date Type Department Care Team [...] 05/01/2024 11:20 AM EDT Appointment Mammography/[place] [address] Rodney Padilla MD 05/01/2024 1:45 PM EDT Office [place] [address] Juanpablo Hernandez MD [facility] [place] [address] 05/23/2024 2:45 PM EST Clinical Support Family Medicine at [address] [phone] Julia Low, [facility] 01/30/2025 1:30 PM EDT Laboratory Appointment Lab at [facility] Hematology Oncology [address] [place] [address] 01/30/2025 3:[address] [place] [address] Arturo Cordero MD [facility] HEMATOLOGY [place] [address] 01/30/2025 4:15 PM EDT Office Visit Hematology [place] [address] Arturo Cordero MD [facility] HEMATOLOGY [place] [address] documented as of this encounter Visit Diagnoses Not on filedocumented in this encounter Care Teams Joiner Helper Relationship Specialty Start Date End Date Luis E Narayan MD [facility] [address] [place] [address] PCP - General Family Medicine 01/20/22 07/17/22 documented as of this encounter
--- OUTSIDE RECORDS SUMMARY | 2024-04-15 15:51 | XMS_ITS | Encounter Summary ---
Author Organization [facility] Address One [facility] [place] [address] Care Team Providers Care Material Stress Tester Name Role Phone Rodney Padilla MD [...] AM EDT Appointment Mammography/DXA at [place] [phone] Rodney Padilla MD 05/01/2024 1:45 PM EDT Office Visit Ophthalmology at [place] [phone] Juanpablo Hernandez MD [facility] [place] [address] 05/23/2024 2:45 PM EST Clinical Support Family Medicine at [place] [address] [place] [address] Julia Low, [facility] 01/30/2025 1:30 PM EDT Laboratory Appointment Lab at [facility] Hematology Oncology [address] [place] [address] 01/30/2025 3:[address] [place] [address] Arturo Cordero MD [facility] DR HEMATOLOGY [place] [address] 01/30/2025 4:15 PM EDT Office Visit Hematology [place] [address] Arturo Cordero MD [facility] DR HEMATOLOGY [place] [address] documented as of this encounter Visit Diagnoses Not on filedocumented in this encounter Care Teams Material Stress Tester Relationship Specialty Start Date End Date Rodney Padilla MD PCP - General 07/18/22 04/09/24 documented as of this encounter
--- OUTSIDE RECORDS SUMMARY | 2024-04-15 15:51 | XMS_ITS | Encounter Summary ---
Author Organization Formerly [facility] [place] [address] Care Team Providers Care Sonar Watchstander Name Role Phone Rodney Padilla MD Primary Care Provider Unav ailable Reason for Visit * Reason Comments Diabetes Encounter Details Date Type Department Care Team (Late st Contact Info) Description 10/05/2022 3:30 PM EDT Clinical Support Family Medicine at [facility] [address] [place] [phone] Julia Low, [facility] Type 2 diabetes mellitus without [...] Progress Notes * Julia Low RPH - 10/05/2022 3:30 PM EDT Clinical Pharmacist [...] any of the following conditions: Yes [x] NE/Stroke/CAD [] Retinopathy [] CHF [x] Neuropathy [] [...] Daily Avg 157 168 131 138 eA1c [id number] 8.46 7.20 7.44 Acute complications of diabetes: [...] 5 ??? fluticasone propionate (Flonase) 50 mcg/actuation [place], Suspension 1 spray by Each Nare route [...] ??? Nebulizer Accessories Misc 1 each by [facility].(Non-Drug; Combo Route) route every 4 hours as [...] 1 each 11 ??? FreeStyle Sanjana 2 [place] Misc 1 each by Other route daily. [...] glycohemoglobin and other lab monitoring discussed and retail cashier associate diabetic complications discussed. Efforts to improve adherence [...] AM EDT Appointment Mammography/DXA at [place] [phone] Rodney Padilla MD 05/01/2024 1:45 PM EDT Office [place] [address] Juanpablo Hernandez MD [facility] [place] [address] 05/23/2024 2:45 PM EST Clinical Support Family Medicine at [facility] [address] [place] [phone] Julia Low RPH 01/30/2025 1:30 PM EDT Laboratory Appointment Lab [place] [facility] [place] On[place] [address] [place] [address] 01/30/2025 3:[address] [place] [address] Arturo Cordero MD [facility] DR [place] [address] 01/30/2025 4:15 PM EDT Office Visit Hematology [place] [address] Arturo Cordero MD [facility] DR [place] [address] documented as of this encounter Procedures Procedure [...] Primary documented in this encounter Care Teams Sonar Watchstander Relationship Specialty Start Date End Date Rodney Padilla MD PCP - General 07/18/22 04/09/24 documented as of this encounter
--- OUTSIDE RECORDS SUMMARY | 2024-04-15 15:51 | XMS_ITS | Encounter Summary ---
Author Organization [facility] Address [facility] [place] [address] Care Team Providers Care Drill Runner Name Role Phone Luis E Narayan MD Primary Care Provider [phone]- [phone] Reason for Visit * Reason Comments Abdominal Pain LLQ, bloating, gas, heartburn, ER last night, CT scan Monday Encounter Details Date Type Department Care Team (Late st Contact Info) Description 06/07/2022 11:00 AM EST Office Visit Family Medicine at 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 female, presenting for ED follow up Chief Complaint Patient presents with ??? 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 GERD related, [...] 05/01/2024 11:20 AM EDT Appointment Mammography/[place] [phone] Rodney Padilla MD 05/01/2024 1:45 PM EDT [place] [address] Juanpablo Hernandez MD [facility] [place] [address] 05/23/2024 2:45 PM EST Clinical Support Family Medicine at [facility] [address] [place] [phone] Julia Low, [facility] 01/30/2025 1:30 PM EDT Laboratory Appointment Lab at [facility] [place] On[place] [address] [place] [id number] 01/30/2025 3:[address] [place] [address] Arturo Cordero MD [facility] DR [place] [address] 01/30/2025 4:15 PM EDT Office Visit Hematology and Oncology at [facility] [place] [address] Arturo Cordero MD [facility] DR [place] [address] documented as of this encounter Procedures Procedure Name Priority Date/Time Associated Diagnosis Comments POCT URINE DIPSTICK Routine 06/07/2022 1 2:12 PM EST Urinary urgency EKG 12-LEAD Routine 06/07/2022 12:07 PM EST Chest pain, unspecified type documented in this encounter Results * (ABNORMAL) POCT urine dipstick (06/07/2022 12:12 PM EST) POC Sp [place] 1.020 1.002 - 1.030 POC pH, UA [...] (specimen) 06/07/2022 12:12 PM EST Tamera Khan APRN POINT OF CARE TEST O RDERABLES * EKG 12 Lead (06/07/2022 12:07 PM EST) Ventricular rate 68 BPM MUSE SYSTEM Atrial Rate 68 BPM MUSE SYSTEM P-R Interval 148 ms MUSE SYSTEM QRS Duration 90 ms MUSE SYSTEM Q-T Interval 402 ms MUSE SYSTEM QTC Calculated (Bezet) 427 ms MUSE SYSTEM Calculated P [place] -2 degrees MUSE SYSTEM Calculated R [place] 22 degrees MUSE SYSTEM Calculated T [place] 45 degrees MUSE SYSTEM INTERPRETATION Normal sinus rhythm Nonspecific T wave abnormality When compared with ECG of 31-MAY-2021 17:16, No significant change was found I personally reviewed the tracing and agree with the fellows interpretation Confirmed by fellow MD Valarie, Molly ([id number]) on 06/07/2022 8:59:36 PM Confirmed by MD [...] obesity Morbid obesity 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
--- OUTSIDE RECORDS SUMMARY | 2024-04-15 15:51 | XMS_ITS | Encounter Summary ---
Author Organization Formerly [place] [address] Care Team Providers Care Sports Commentator Name Role Phone Luis E Narayan MD Primary Care Provider Reason for Referral * Diagnostic Test (Routine) - Closed Specialty Diagnoses / Procedures Referred By Contac t Referred To Contact Radiology Diagnoses Malignant melanoma of conjunctiva, left Procedures CT Chest Abdomen Pelvis w Contrast (Generic) Leandra Lopes APRN [facility] [address] [place] [address] [facility] [place] [address] Referral ID Status Reason Start Date Expiration Date V isits Requested Visits Authorized [id number] Closed Specialty Service Requested 12/24/2021 06/25/2023 1 1 * Diagnostic Test (Routine) - Closed Specialty Diagnoses / Procedures Referred By Contac t Referred To Contact Radiology Diagnoses Malignant melanoma of conjunctiva, left Procedures CT Neck Soft Tissue w Contrast (Generic) Leandra Lopes APRN [facility] [place] [address] [facility] [place] [address] Referral ID Status Reason Start Date Expiration Date V isits Requested Visits Authorized [id number] Closed Specialty Service Requested 12/24/2021 06/25/2023 1 1 Reason for Visit * Diagnostic Test (Routine) - Closed Specialty Diagnoses / Procedures Referred By Contchrissy t Referred To Contact Radiology Diagnoses Malignant melanoma of conjunctiva, left Procedures CT Chest Abdomen Pelvis w Contrast (Generic) Leandra Lopes APRN [facility] [address] [place] [address] [facility] [place] [address] Referral ID Status Reason Start Date Expiration Date V isits Requested Visits Authorized [id number] Closed Specialty Service Requested 12/24/2021 06/25/2023 1 1 Encounter Details Date Type Department Care Team (Late st Contact Info) Description 06/23/2022 11:14 AM EST - 06/23/2022 11:30 AM EST Hospital [place] [phone] Leandra Lopes APRN [facility] [address] [place] [address] Malignant melanoma of conjunctiva, left Discharge Disposition: [...] 1 each 12/10/2021 02/04/2023 FreeStyle Sanjana 2 [place] MiscIndications:diabet es mellitus 1 each by Other route daily. Indications: diabetes mellitus 1 each 10/26/2021 01/23/2023 FreeStyle Sanjana 2 Sensor KitIndications:diabete s mellitus 1 each by Other route every 14 days. Indications: diabetes mellitus 2 kit 10/26/2021 01/23/2023 fluticasone propionate (Flonase) 50 mcg/actuation [place], Suspension 1 spray by Each Nare route [...] 05/01/2024 11:20 AM EDT Appointment Mammography/[place] [address] Rodney Padilla MD 05/01/2024 1:45 PM EDT Office [place] [phone] Juanpablo Hernandez MD [facility] [place] [address] 05/23/2024 2:45 PM EST Clinical Support Family Medicine at [address] [address] Julia Low, [facility] 01/30/2025 1:30 PM EDT Laboratory Appointment Lab at [facility] Hematology Oncology [address] [place] [address] 01/30/2025 3:[address] [place] [phone] Arturo Cordero MD [facility] DR [place] [address] 01/30/2025 4:15 PM EDT Office Visit Hematology [place] [address] Arturo Cordero MD [facility] DR [place] [address] documented as of this encounter Procedures Procedure [...] have questions please contact the health care coordination manager that requested your imaging first. ? [...] who have questions please contactthe health care coordination manager that requested your imaging first. Leandra Lopes APRN [facility] CT ORDERABLES * CT Neck Soft Tissue [...] have questions please contact the health care coordination manager that requested your imaging first. ? [...] who have questions please contactthe health care coordination manager that requested your imaging first. Leandra Chelsea Lopes TECHNICAL ACCOUNT REPRESENTATIVE IMG CT ORDERABLES documented in this encounter [...] mLs documented in this encounter Care Teams Sports Commentator Relationship Specialty Start Date End Date Luis E Narayan MD [facility] [place] [address] PCP - General Family Medicine 01/20/22 07/17/22 documented as of this encounter
--- OUTSIDE RECORDS SUMMARY | 2024-04-15 15:51 | XMS_ITS | Encounter Summary ---
Author Organization [facility] Address [facility] [place] [address] Care Team Providers Care Sterile Processing Manager Name Role Phone Luis E Narayan MD Primary Care Provider [phone]- [phone] Reason for Visit * Reason Comments Follow-up Doesn't feel good, a lso just finished antibiotics for sinus infection, pt thinks there is some type of lung infection Encounter Details Date Type Department Care Team (Late st Contact Info) Description 07/07/2022 11:30 AM EST Office Visit Family Medicine at [facility] [address] [place] [phone] Tamera Khan, BLANCHARD GRINDER OPERATOR [facility] DR LIL[address] [facility]EV[facility] [address] LLQ pain; Acute rhinosinusitis; Fatty liver Social [...] office to schedule a follow up. Call- [phone] to schedule the gastric emptying scan Nutrition: How to Make Healthier Food Choices From: familydoctor.org/aovxhzhhb-eks-di-vkpn-[email or web address]-zoew-choices Having a healthy diet has a lot [...] made up of more than 50% fat. Educational Resource Coordinator options, such as maria victoria food cake, can satisfy your sweet tooth without adding fat to your diet. Instead of this: Try this: Croissants, rolls, biscuits, and white breads Whole grain breads, including wheat, rye, and pumpernickel Doughnuts, pastries, and scones [place] muffins and small whole grain bagels Fried [...] almond, or cashew) butter Fried potatoes, including kittitian fries, hash browns, and potato chips Baked [...] seafood is high in healthy polyunsaturated fat. [place]-3 fatty acids also are found in some [...] low-fat, high-calcium snack option. - Nonfat or Swiss yogurt can replace sour cream in many [...] made with whole milk Low-fat, nonfat, or Swiss yogurt Regular cheese, including [place], blue, brie, cheddar, karen, and parmesan Low-fat [...] and molasses cookies Shortening, butter, and margarine [place], canola, and soybean oils Regular mayonnaise Nonfat [...] follow up on her CT done by [facility] onc - questions about fatty liver dx on scan Recently was seen in the ED for sinus infection, finished course of abx Still having a non productive cough, sinus pressure and mild fever Denies chills, chest pain, shortness of breath Review of Systems As above I reviewed problem list and med list in [facility] Objective: BP 138/76 Pulse 79 Temp 36.1 [...] 05/01/2024 11:20 AM EDT Appointment Mammography/[place] [address] Rodney Padilla MD 05/01/2024 1:45 PM EDT Office [place] [address] Juanpablo Hernandez MD [facility] [place] [address] 05/23/2024 2:45 PM EST Clinical Support Family Medicine at [facility] [address] [place] [phone] Julia Low [facility] 01/30/2025 1:30 PM EDT Laboratory Appointment Lab [place] [facility] [place] [address] [place] [address] 01/30/2025 3:[address] [place] [address] Arturo Cordero MD [facility] DR HEMATOLOGY [place] [address] 01/30/2025 4:15 PM EDT Office Visit Hematology [place] [address] Arturo Cordero MD [facility] HEMATOLOGY [place] [address] documented as of this encounter Visit Diagnoses Diagnosis LLQ pain Abdominal pain, left lower quadrant Acute rhinosinusitis Acute sinusitis, unspecified Fatty liver Other chronic nonalcoholic liver disease documented in this encounter Care Teams Sterile Processing Manager Relationship Specialty Start Date End Date Luis E Narayan MD [facility] DR [address]IL[address] [facility] [address] PCP - General Family Medicine 01/20/22 07/17/22 documented as of this encounter
--- OUTSIDE RECORDS SUMMARY | 2024-04-15 15:51 | XMS_ITS | Encounter Summary ---
Author Organization [facility] Address [facility] [place] [address] Care Team Providers Care Computational Theory Scientist Name Role Phone Luis E Narayan MD Primary Care Provider [phone]- [phone] Reason for Visit * Reason Onset Date Comments Medication Refill 06/19/2022 Encounter Details Date Type Department Care Team (Late st Contact Info) Description 06/19/2022 Refill Family Medicine at [facility] [address] [place] [address] Luis E Narayan MD [facility] DR LIL[address] [place] [address] Mixed hyperlipidemia Social History Tobacco Use Types [...] [place] [address] Rodney Padilla MD 05/01/2024 1:45 PM EDT Office Visit Ophthalmology at [place] [phone] Juanpablo Hernandez MD [facility] [place] [address] 05/23/2024 2:45 PM EST Clinical Support Family Medicine at [facility] [address] [place] [phone] Julia Low, [facility] 01/30/2025 1:30 PM EDT Laboratory Appointment Lab at [facility] Hematology Oncology [address] [place] [address] 01/30/2025 3:[address] [place] [place] [address] Arturo Cordero MD [facility] DR HEMATOLOGY [place] [address] 01/30/2025 4:15 PM EDT Office Visit H[place]ology [place] [address] Arturo Cordero MD [facility] DR HEMATOLOGY [place] [address] documented as of this encounter Visit Diagnoses Diagnosis Mixed hyperlipidemia documented in this encounter Care Teams Computational Theory Scientist Relationship Specialty Start Date End Date Luis E Narayan MD [facility] [address] LIL[address] [facility] [address] PCP - General Family Medicine 01/20/22 07/17/22 documented as of this encounter
--- OUTSIDE RECORDS SUMMARY | 2024-04-15 15:51 | XMS_ITS | Encounter Summary ---
Author Organization [facility] Address [facility] [place] [address] Care Team Providers Care Contact Lens Curve Grinder Name Role Phone Rodney Padilla MD Primary [...] 05/01/2024 11:20 AM EDT Appointment Mammography/DXA at [place] [phone] Rodney Padilla MD 05/01/2024 1:45 PM EDT Office Visit Ophthalmology at [place] [phone] Juanpablo Hernandez MD [facility] [place] [address] 05/23/2024 2:45 PM EST Clinical Support Family Medicine at [place] [address] [place] [address] Julia Low, [facility] 01/30/2025 1:30 PM EDT Laboratory Appointment Lab at [facility] Hematology Oncology [address] [place] [address] 01/30/2025 3:[address] [place] [address] Arturo Cordero MD [facility] DR HEMATOLOGY [place] [address] 01/30/2025 4:15 PM EDT Office Visit Hematology [place] [address] Arturo Cordero MD [facility] DR HEMATOLOGY [place] [address] documented as of this encounter Visit Diagnoses Not on filedocumented in this encounter Care Teams Contact Lens Curve Grinder Relationship Specialty Start Date End Date Rodney Padilla MD PCP - General 07/18/22 04/09/24 documented as of this encounter
--- OUTSIDE RECORDS SUMMARY | 2024-04-15 15:51 | XMS_ITS | Encounter Summary ---
Author Organization [facility] Address [address] [place] [address] Care Team Providers Care Funeral Service Apprentice Name Role Phone Rodney Padilla MD Primary Care Provider Unav ailable Encounter Details Date Type Department Care Team (Late st Contact Info) Description 08/25/2022 Telephone Family Medicine at [address] [place] [address] Julia Gooden Social History Tobacco Use Types [...] - 08/25/2022 12:55 PM EST Copied from [facility] #[id number]. Topic: Forms/Letters - Health/Immunization Forms >> Aug 25, 2022 11:53 AM Paula Tyson wrote: Health / Immunization Form Request PCP: RODNEY PADILLA Type of Form Needed: Current medication list Date of Last Physical: 07/07/22 How Would You Like to Receive This: [facility] called and stated patient isthere now and they need an updated medication list Patient Informed, completion of this request can take 5-7 business days. documented in this encounter Plan of Treatment Upcoming Encounters Date Type Department Care Team (Late st Contact Info) Description 05/01/2024 11:20 AM EDT Appointment Mammography/[place] [address] Rodney Padilla MD 05/01/2024 1:45 PM EDT [place] [address] Juanpablo Hernandez MD [facility] [place] [address] 05/23/2024 2:45 PM EST Clinical Support Family Medicine at [facility] [address] [place] [address] Julia Low, [facility] 01/30/2025 1:30 PM EDT Laboratory Appointment Lab at [facility] Hematology Oncology [address] [place] [address] 01/30/2025 3:[address] [place] [place] [address] Arturo Cordero MD [facility] HEMATOLOGY [place] [address] 01/30/2025 4:15 PM EDT Office Visit [place] [address] Arturo Cordero MD [facility] DR HEMATOLOGY [place] [address] documented as of this encounter Visit Diagnoses Not on filedocumented in this encounter Care Teams Funeral Service Apprentice Relationship Specialty Start Date End Date Rodney Padilla MD PCP - General 07/18/22 04/09/24 documented as of this encounter
--- OUTSIDE RECORDS SUMMARY | 2024-04-15 15:51 | XMS_ITS | Encounter Summary ---
Author Organization [facility] Address [facility] [place] [address] Care Team Providers Care Hot Tar Roofer Name Role Phone Luis E Narayan MD Primary Care Provider [phone]- [phone] Encounter Details Date Type Department Care Team (Late st Contact Info) Description 06/21/2022 Orders Only [place]ematology [place] [address] Leandra Lopes, RFID ANALYST [facility] [place] [address] Ocular melanoma, left Social History Tobacco Use [...] 05/01/2024 11:20 AM EDT Appointment Mammography/[place] [address] Rodney Padilla MD 05/01/2024 1:45 PM EDT Office [place] [address] Juanpablo Hernandez MD [facility] [place] [address] 05/23/2024 2:45 PM EST Clinical Support Family Medicine at [facility] [address] [place] [address] Julia Low, [facility] 01/30/2025 1:30 PM EDT Laboratory Appointment Lab at [facility] Hematology Oncology [address] [place] [address] 01/30/2025 3:[address] [place] [address] Arturo Cordero MD [facility] H[place]AT[place] [address] 01/30/2025 4:15 PM EDT Office Visit Hematology [place] [address] Arturo Cordero MD [facility] [place]AT[place] [address] documented as of this encounter Results * (ABNORMAL) Comprehensive metabolic panel (non-fasting) (06/23/2022 11:47 AM EST) Glucose 274(H) 65 - 199 mg/dL [facility] Comment:Diabetes: >=200 mg/d L plus symptoms Blood Urea Nitrogen 12 8 - 18 mg/dL [facility] Creatinine 0.92 0.70 - 1.20 mg/dL [facility] Sodium 139 135 - 145 mmol/L [facility] Potassium 4.1 3.5 - 5.0 mmol/L [facility] Comment: Please note: ??Patients with WBC >100,000 may have falsely elevated Potassium levels. ??For accurate Potassium quantification in these patients send serum separator tube (gold top) for subsequent determinations. ??Contact the Clinical Chemistry Laboratory if there are any questions. Chloride 104 98 - 107 mmol/L [facility] Carbon Dioxide 25 22 - 31 mmol/L [facility] Anion Gap 10 5 - 15 mmol/L [facility] Calcium 9.6 8.5 - 10.5 mg/dL [facility] Protein, Total 7.0 6.1 - 8.0 g/dL [facility] Albumin 4.2 3.2 - 5.2 g/dL [facility] Aspartate Aminotransferase 16 0 - 30 unit/L [facility] Alanine Aminotransferase 27 0 - 30 unit/L [facility] Alkaline Phosphatase 113(H) 35 - 105 unit/L [facility] Bilirubin, Total 0.5 0.2 - 1.3 mg/dL [facility] Est Glomerular Filtration Rate 70 >=60 mL/min/1. 73 m?? [facility] Comment: This patient's estimated [...] Lab Leandra Lopes APRN CHEMISTRY ORDERABL ES [facility] [place] [address] documented in this encounter Visit Diagnoses Diagnosis Ocular melanoma, left documented in this encounter Care Teams Hot Tar Roofer Relationship Specialty Start Date End Date Luis E Narayan MD [facility] DR LILI [facility] [address] PCP - General Family Medicine 01/20/22 07/17/22 documented as of this encounter
--- OUTSIDE RECORDS SUMMARY | 2024-04-15 15:51 | XMS_ITS | Encounter Summary ---
Author Organization [facility] [place] [address] Care Team Providers Care Denial Resolution Specialist Name Role Phone Luis E Narayan MD Primary Care Provider Reason for Visit * Reason Comments Follow-up Encounter Details Date Type Department Care Team (Late st Contact Info) Description 06/23/2022 2:45 PM EST Office Visit Hematology [place] [address] Arturo Cordero MD [facility] [address] [place] [address] Leandra Lopes APRN [facility] [address] [place] [address] Malignant melanoma of conjunctiva, left (Primary Dx); [...] from the original note were not included. [facility] FOLLOW UP NOTE REFERING PHYSICIAN: Dr. [...] management - fall 2018: saw a new team leader/research psychologist and was referred to Dr. 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 Medina - 03/31/2020: saw her team leader/research psychologist Dr. Hernandez and was noted to have [...] uses inhalerswith good effect ??? Atherosclerosis of [place] coronary artery of [place] heart with angina pectoris 10/09/2007 History of [...] MD at [facility] OSC ??? PRO EXCIS CORNEA LESN Left 05/14/2020 EXCISION OF LESION, CORNEA, EXCEPT PTERYGIUM (WRVU 7.5) performed by Juanpablo Hernandez MD at [facility] ??? PRO LAP, PARTIAL NEPHRECTOMY Left 06/28/2019 LAPAROSCOPY, PARTIAL NEPHRECTOMY, ROBOTIC ASSIST (WRVU 27.41) performed by Avila Medina MD at [facility] MAIN OR ??? PRO PLACE AMNIOTIC MEMBRANE OCULAR SURFACE;SINGLE LAYER SUTURED Left 05/14/2020 PLACEMENT OF AMNIOTIC MEMBRANE ON THE OCULAR SURFACE,SINGLE LAYER,SUTURED (WRVU 2.5) performed by Juanpablo Hernandez MD at 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 She continues to see Dr. Hernandez (team leader/research psychologist), dermatology and PCP on regular basis. Surveillance [...] least annually, or as recommended by your sled maker. Last visit in Feb 2022. - Regular skin and lymph node self-examination should be performed. Please report any new lesions, lumps or bumps of concern to your sled maker or oncology team. 3) PCP for other [...] 05/01/2024 11:20 AM EDT Appointment Mammography/[place] [address] Rodney Padilla MD 05/01/2024 1:45 PM EDT Office [place] [address] Juanpablo Hernandez MD [facility] [place] [address] 05/23/2024 2:45 PM EST Clinical Support Family Medicine at [facility] [address] [place] [address] Julia Low, [facility] 01/30/2025 1:30 PM EDT Laboratory Appointment Lab at [facility] Hematology Oncology [address] [place] [address] 01/30/2025 3:[address] [place] [address] Arturo Cordero MD [facility] [address] [place] [address] 01/30/2025 4:15 PM EDT Office Visit Hematology [place] [address] Arturo Cordero MD [facility] [place] [address] documented as of this encounter Results * Lactate Dehydrogenase (12/29/2022 10:00 AM EDT) Pathologist [facility] Lactate Dehydrogenase 175 110 - 220 unit/L [facility] Blood 12/29/2022 10:0 0 AM EDT 12/29/2022 10:13 AM EDT Narrative Resulting Agency Comment Spec In Lab Arturo Cordero MD CHEMISTRY ORDERABLES [facility] [place] [address] * (ABNORMAL) Comprehensive metabolic panel (non-fasting) (12/29/2022 10:00 AM EDT) Pathologist [facility] Glucose 259(H) 65 - 199 mg/dL [facility] Comment:Diabetes: >=200 mg/d L plus symptoms Blood Urea Nitrogen 17 8 - 18 mg/dL [facility] Creatinine 0.84 0.70 - 1.20 mg/dL [facility] Sodium 140 135 - 145 mmol/L [facility] Potassium 4.5 3.5 - 5.0 mmol/L [facility] Comment: Please note: ??Patients with WBC >100,000 may have falsely elevated Potassium levels. ??For accurate Potassium quantification in these patients send serum separator tube (gold top) for subsequent determinations. ??Contact the Clinical Chemistry Laboratory if there are any questions. Chloride 104 98 - 107 mmol/L [facility] Carbon Dioxide 23 22 - 31 mmol/L [facility] Anion Gap 13 5 - 15 mmol/L [facility] Calcium 9.5 8.5 - 10.5 mg/dL [facility] Protein, Total 6.9 6.1 - 8.0 g/dL [facility] Albumin 4.1 3.2 - 5.2 g/dL [facility] Aspartate Aminotransferase 19 0 - 30 unit/L [facility] Alanine Aminotransferase 24 0 - 30 unit/L [facility] Alkaline Phosphatase 103 35 - 105 unit/L [facility] Bilirubin, Total 0.3 0.2 - 1.3 mg/dL [facility] Est Glomerular Filtration Rate 78 >=60 mL/min/1. 73 m?? [facility] Comment: This patient's estimated GFR [...] In Lab Arturo Cordero MD CHEMISTRY ORDERABLES [facility] [place] [address] documented in this encounter Visit Diagnoses Diagnosis Malignant melanoma of conjunctiva, left- Primary Malignant neoplasm of left kidney documented in this encounter Care Teams Denial Resolution Specialist Relationship Specialty Start Date End Date Luis E Narayan MD [facility] [address] [place] [address] PCP - General Family Medicine 01/20/22 07/17/22 documented as of this encounter
--- OUTSIDE RECORDS SUMMARY | 2024-04-15 15:51 | XMS_ITS | Encounter Summary ---
Author Organization [facility] Address [facility] [address] Care Team Providers Care Business Insight And Analytics Manager Name Role Phone Rodney Padilla MD [...] AM EDT Appointment Mammography/DXA at [place] [phone] Rodney Padilla MD 05/01/2024 1:45 PM EDT Office Visit Ophthalmology at [place] [phone] Juanpablo Hernandez MD [facility] [place] [address] 05/23/2024 2:45 PM EST Clinical Support Family Medicine at [place] [address] [place] [address] Julia oLw, [facility] 01/30/2025 1:30 PM EDT Laboratory Appointment Lab at [facility] [place] On[place] [address] [place] [address] 01/30/2025 3:[address] [place] [address] Arturo Cordero MD [facility] DR HEMATOLOGY [place] [address] 01/30/2025 4:15 PM EDT Office Visit Hematology [place] [address] Arturo Cordero MD [facility] DR HEMATOLOGY [place] [address] documented as of this encounter Visit Diagnoses Not on filedocumented in this encounter Care Teams Business Insight And Analytics Manager Relationship Specialty Start Date End Date Rodney Padilla MD PCP - General 07/18/22 04/09/24 documented as of this encounter
--- OUTSIDE RECORDS SUMMARY | 2024-04-15 15:51 | XMS_ITS | Encounter Summary ---
Author Organization [facility] Address [facility] [address] Care Team Providers Care Ground Service Equipment Mechanic Name Role Phone Luis E Naaryan MD Primary Care Provider [phone]- [phone] Encounter Details Date Type Department Care Team [...] AM EDT Appointment Mammography/[place] [address] Rodney Padilla MD 05/01/2024 1:45 PM EDT Office [place] [address] Juanpablo Hernandez MD [facility] [place] [address] 05/23/2024 2:45 PM EST Clinical Support Family Medicine at [address] [phone] Julia Low, [facility] 01/30/2025 1:30 PM EDT Laboratory Appointment Lab at [facility] Hematology Oncology [address] [place] [address] 01/30/2025 3:[address] [place] [address] Arturo Cordero MD [facility] [place] [address] 01/30/2025 4:15 PM EDT Office Visit Hematology [place] [address] Arturo Cordero MD [facility] [place] [address] documented as of this encounter Visit Diagnoses Not on filedocumented in this encounter Care Teams Ground Service Equipment Mechanic Relationship Specialty Start Date End Date Luis E Narayan MD [facility] [address] [place] [address] PCP - General Family Medicine 01/20/22 07/17/22 documented as of this encounter
--- OUTSIDE RECORDS SUMMARY | 2024-04-15 15:51 | XMS_ITS | Encounter Summary ---
Author Organization [facility] Address [facility] [place] [address] Care Team Providers Care Heat And Vent Aircraft Mechanic Name Role Phone Luis E Narayan MD Primary Care Provider [phone]- [phone] Reason for Visit * Reason Onset Date Comments Medication Refill 06/19/2022 Encounter Details Date Type Department Care Team (Late st Contact Info) Description 06/19/2022 Refill Family Medicine at [facility] [address] [place] [address] Tamera Khan, OBEDIENCE TRAINER [facility] DR LIL[address] WALKER[place] [address] Bloating Social History Tobacco Use Types Packs/Day [...] 11:20 AM EDT Appointment Mammography/[place] [address] Rodney Padilla MD 05/01/2024 1:45 PM EDT Office [place] [address] Juanpablo Hernandez MD [facility] [place] [address] 05/23/2024 2:45 PM EST Clinical Support Family Medicine at [facility] [address] [place] [address] Julia Low RPH 01/30/2025 1:30 PM EDT Laboratory Appointment Lab at [facility] Hematology Oncology [address] [place] [address] 01/30/2025 3:[address] [place] [address] Arturo Cordero MD [facility] HEMATOLOGY [place] [address] 01/30/2025 4:15 PM EDT Office Visit Hematology [place] [address] Arturo Cordero MD [facility] HEMATOLOGY [place] [address] documented as of this encounter Visit Diagnoses Diagnosis Bloating Flatulence, eructation, and gas pain documented in this encounter Care Teams Heat And Vent Aircraft Mechanic Relationship Specialty Start Date End Date Luis E Narayan MD [facility] [address] [place] [address] PCP - General Family Medicine 01/20/22 07/17/22 documented as of this encounter
--- OUTSIDE RECORDS SUMMARY | 2024-04-15 15:51 | XMS_ITS | Encounter Summary ---
Author Organization [facility] Address [facility] [place] [address] Care Team Providers Care High [employer] Library Media Specialist Name Role Phone Daryn Garrett MD Primary Care Provider Reason for Visit * Reason Onset Date Comments Medication Refill 09/18/2022 Encounter Details Date Type Department Care Team (Late st Contact Info) Description 09/18/2022 Refill Family Medicine at [facility] [address] [place] [address] Tamera Khan APRN [facility] DR LILI WALKER-[place] [address] Social History Tobacco Use Types Packs/Day Years [...] AM EDT Appointment Mammography/[place] [address] Rodney Padilla MD 05/01/2024 1:45 PM EDT Office [place] [address] Juanpablo Hernandez MD [facility] [place] [address] 05/23/2024 2:45 PM EST Clinical Support Family Medicine at [facility] [address] [place] [address] Julia Low [facility] 01/30/2025 1:30 PM EDT Laboratory Appointment Lab [place] [facility] [place] On[place] [address] [place] [address] 01/30/2025 3:[address] [place] [address] Arturo Cordero MD [facility] HEMATOLOGY [place] [address] 01/30/2025 4:15 PM EDT Office Visit Hematology [place] [address] Arturo Cordero MD [facility] HEMATOLOGY [place] [address] documented as of this encounter Visit Diagnoses Not on filedocumented in this encounter Care Teams High [employer] Library Media Specialist Relationship Specialty Start Date End Date Daryn Garrett MD [facility] [address] [place] - [place] [address] PCP - General 04/10/24 documented as of this encounter
--- OUTSIDE RECORDS SUMMARY | 2024-04-15 15:51 | XMS_ITS | Encounter Summary ---
Author Organization [facility] [place] [address] Care Team Providers Care Dipper Operator Name Role Phone Rodney Padilla MD Primary Care Provider Unav ailable Reason for Visit * Reason Comments Eye Problem Diabetic Eye Exam Encounter Details Date Type Department Care Team (Late st Contact Info) Description 10/05/2022 12:45 PM EDT Office Visit [place] [address] Juanpablo Hernandez MD [facility] [place] [address] Malignant melanoma of conjunctiva, left; Type 2 [...] 11:20 AM EDT Appointment Mammography/[place] [address] Rodney Padilla MD 05/01/2024 1:45 PM EDT Office Visit [place] [address] Juanpablo Hernandez MD [facility] [place] [address] 05/23/2024 2:45 PM EST Clinical Support Family Medicine at [facility] [address] [place] [address] Julia Low, [facility] 01/30/2025 1:30 PM EDT Laboratory Appointment Lab at [facility] [place] On[place] [address] [place] [address] 01/30/2025 3:[address] [place] [address] Arturo Cordero MD [facility] DR HEMATOLOGY [place] [address] 01/30/2025 4:15 PM EDT Office Visit Hematology [place] [address] Arturo Cordero MD [facility] DR HEMATOLOGY [place] [address] documented as of this encounter Procedures Procedure [...] insulin documented in this encounter Care Teams Dipper Operator Relationship Specialty Start Date End Date Rodney Padilla MD PCP - General 07/18/22 04/09/24 documented as of this encounter
--- OUTSIDE RECORDS SUMMARY | 2024-04-15 15:51 | XMS_ITS | Encounter Summary ---
Author Organization [facility] Address [facility] [place] [address] Care Team Providers Care Line Mechanic Name Role Phone Rodney Padilla MD Primary Care Provider Unav ailable Encounter Details Date Type Department Care Team (Late st Contact Info) Description 09/30/2022 Telephone Family Medicine at [address] [place] [address] Julia Low, [facility] Social History Tobacco Use Types Packs/Day Years [...] 05/01/2024 11:20 AM EDT Appointment Mammography/DXA at [place] [phone] Rodney Padilla MD 05/01/2024 1:45 PM EDT Office [place] [address] Juanpablo Hernandez MD [facility] [place] [address] 05/23/2024 2:45 PM EST Clinical Support Family Medicine at [facility] [address] [place] [address] Julia Low, [facility] 01/30/2025 1:30 PM EDT Laboratory Appointment Lab at [facility] Hematology Oncology [address] [place] [address] 01/30/2025 3:[address] [place] [address] Arturo Cordero MD [facility] DR HEMATOLOGY AND ONCOLOGY [place], [place] [address] 01/30/2025 4:15 PM EDT Office Visit Hematology [place] [address] Arturo Cordero MD [facility] DR [place] [address] documented as of this encounter Visit Diagnoses Not on filedocumented in this encounter Care Teams Line Mechanic Relationship Specialty Start Date End Date Rodney Padilla MD PCP - General 07/18/22 04/09/24 documented as of this encounter
--- OUTSIDE RECORDS SUMMARY | 2024-04-15 15:51 | XMS_ITS | Encounter Summary ---
Author Organization [facility] Address [facility] [place] [address] Care Team Providers Care Nursing Service Administrator Name Role Phone Rodney Padilla MD Primary Care Provider Unav ailable Reason for Visit * Reason Comments Medication Refill Encounter Details Date Type Department Care Team (Late st Contact Info) Description 09/15/2022 Refill Family Medicine at [facility] [address] [place] [address] Tamera Khan APRN [facility] DR LILI WALKER[place] [address] Social History Tobacco Use Types Packs/Day Years [...] AM EDT Prescription Renewal Request Name: Alize Chelsea Avila : 1960 Prescription(s) Requested: Requested Prescriptions [...] 05/01/2024 11:20 AM EDT Appointment Mammography/[place] [address] Rodney Padilla MD 05/01/2024 1:45 PM EDT Office Visit Ophthalmology at [place] [phone] Juanpablo Hernandez MD [facility] [place] [address] 05/23/2024 2:45 PM EST Clinical Support Family Medicine at [address] [address] Julia Low, [facility] 01/30/2025 1:30 PM EDT Laboratory Appointment Lab at [facility] Hematology Oncology [address] [place] [address] 01/30/2025 3:[address] [place] [address] Arturo Cordero MD [facility] DR HEMATOLOGY [place] [address] 01/30/2025 4:15 PM EDT Office Visit Hematology [place] [address] Arturo Cordero MD [facility] DR HEMATOLOGY [place] [address] documented as of this encounter Visit Diagnoses Not on filedocumented in this encounter Care Teams Nursing Service Administrator Relationship Specialty Start Date End Date Rodney Padilla MD PCP - General 07/18/22 04/09/24 documented as of this encounter
--- OUTSIDE RECORDS SUMMARY | 2024-04-15 15:51 | XMS_ITS | Encounter Summary ---
Author Organization Count Includes [facility] Address [facility] [place] [address] Care Team Providers Care Tower Foreman Name Role Phone Luis E Narayan MD Primary Care Provider +1- [phone] Reason for Visit * Reason Onset Date Comments Medication Refill 07/11/2022 Encounter Details Date Type Department Care Team (Late st Contact Info) Description 07/11/2022 Refill Family Medicine at [facility] [address] [place] [address] Ally Lerner APRN [facility] [place] [address] Social History Tobacco Use Types Packs/Day Years [...] 05/01/2024 11:20 AM EDT Appointment Mammography/[place] [address] Rodney Padilla MD 05/01/2024 1:45 PM EDT Office Visit Ophthalmology at [place] [phone] Juanpablo Hernandez MD [facility] [place] [address] 05/23/2024 2:45 PM EST Clinical Support Family Medicine at [place] [address] [place] [address] Julia Low, [facility] 01/30/2025 1:30 PM EDT Laboratory Appointment Lab [place] [facility] [place] [address] [place] [address] 01/30/2025 3:[address] Scan at [place] [phone] Arturo Cordero MD [facility] [place] [address] 01/30/2025 4:15 PM EDT Office Visit [place]ology [place] [address] Arturo Cordero MD [facility] [place] [address] documented as of this encounter Visit Diagnoses Not on filedocumented in this encounter Care Teams Tower Foreman Relationship Specialty Start Date End Date Luis E Narayan MD [facility] DR LILI [place] [address] PCP - General Family Medicine 01/20/22 07/17/22 documented as of this encounter
--- OUTSIDE RECORDS SUMMARY | 2024-04-15 15:51 | XMS_ITS | Encounter Summary ---
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 Indications: diabetes mellitus 1 each 10/26/2021 01/23/2023 FreeStyle Sanjana 2 Sensor KitIndications:diabete s mellitus 1 each by Other route every 14 days. Indications: diabetes mellitus 2 kit 10/26/2021 01/23/2023 fluticasone propionate (Flonase) 50 mcg/actuation [place], Suspension 1 spray by Each Nare route [...] 05/01/2024 11:20 AM EDT Appointment Mammography/[place] [phone] Rodney Padilla MD 05/01/2024 1:45 PM EDT Office Visit Ophthalmology at [place] [phone] Juanpablo Hernandez MD [facility] [place] [address] 05/23/2024 2:45 PM EST Clinical Support Family Medicine at [address] [phone] Julia Low, [facility] 01/30/2025 1:30 PM EDT Laboratory Appointment Lab [place] [facility] [place] [address] [place] [address] 01/30/2025 3:[address] [place] [phone] Arturo Cordero MD [facility] DR [place] [address] 01/30/2025 4:15 PM EDT Office Visit Hematology [place] [phone] Arturo Cordero MD [facility] [place] [address] documented as of this encounter Procedures Procedure [...] 11:47 AM EST) Neutrophil % 68.2 % [facility] Neutrophil Absolute 6.07 1.70 - 6.10 x10(3)/[facility] LABORATORY Lymph % 23.1 % [facility] Lymphocytes Abs 2.1 0.9 - 3.2 x10(3)/[facility] LABORATORY Monocyte % 6.6 % [facility] Monocyte Abs 0.6 0.3 - 0.9 x10(3)/[facility] LABORATORY Eos % 1.3 % [facility] Eosinophils Abs 0.1 0.0 - 0.4 x10(3)/[facility] LABORATORY Basophil % 0.4 % [facility] Baso Absolute 0.0 0.0 - 0.1 x10(3)/[facility] LABORATORY Immature Gran % 0.40 % [facility] Comment: Immature granulocytes(IG's)percentage and absolute count will include metamyelocytes, myelocytes, and promyelocytes. Blood smears from CBCs yielding IG's will be scanned manually for concordance. If this scan disagrees with the automated IG or if promyelocytes are noted, a manual differential will be performed. Immature Gran Absolute 0.04 0.00 - 0.04 x10(3)/[facility] LABORATORY Blood 06/23/2022 11:4 7 AM EST 06/23/2022 11:51 AM EST Narrative Resulting Agency Comment Spec In Lab Leandra Lopes SITE ACQUISITION MANAGER HEMATOLOGY ORDERAB LES [facility] [place] [address] * (ABNORMAL) Hemogram (06/23/2022 11:47 AM EST) White Blood Cell 8.9 4.0 - 9.5 x10(3)/mc L [facility] Red Blood Cell 4.60 4.00 - 5.21 x10(6)/mc L [facility] Hemoglobin 12.9 11.7 - 15.5 g/dL [facility] Hematocrit 39.0 35.7 - 45.8 % [facility] Mean Cell Volume 84.8 82.6 - 94.4 fL [facility] Mean Cell Hemoglobin 28.0 27.1 - 32.0 pg [facility] Mean Cell Hemoglobin Concentration 33.1 31.7 - 35.0 g/dL [facility] Platelet 368(H) 145 - 357 x10(3)/mc L [facility] RDW Standard Deviation 43.6 37.0 - 46.0 fL [facility] RDW coefficient of variation 14.0 11.5 - 14.1 % [facility] Mean Platelet Volume 9.0 7.6 - 12.9 fL [facility] NRBC% auto 0.0 % [facility] LAB[facility]ORY NRBC Absolute 0.000 0.000 - 0.000 x10(3)/mc L [facility] Blood 06/23/2022 11:4 7 AM EST 06/23/2022 11:51 AM EST Narrative Resulting Agency Comment Spec In Lab Leandra Lopes APRN HEMATOLOGY ORDERAB LES [facility] [place] [address] * (ABNORMAL) Comprehensive metabolic panel (non-fasting) (06/23/2022 11:47 AM EST) Glucose 274(H) 65 - 199 mg/dL [facility] Comment:Diabetes: >=200 mg/d L plus symptoms Blood Urea Nitrogen 12 8 - 18 mg/dL [facility] Creatinine 0.92 0.70 - 1.20 mg/dL [facility] Sodium 139 135 - 145 mmol/L [facility] Potassium 4.1 3.5 - 5.0 mmol/L [facility] Comment: Please note: ??Patients with WBC >100,000 may have falsely elevated Potassium levels. ??For accurate Potassium quantification in these patients send serum separator tube (gold top) for subsequent determinations. ??Contact the Clinical Chemistry Laboratory if there are any questions. Chloride 104 98 - 107 mmol/L [facility] Carbon Dioxide 25 22 - 31 mmol/L [facility] Anion Gap 10 5 - 15 mmol/L [facility] Calcium 9.6 8.5 - 10.5 mg/dL [facility] Protein, Total 7.0 6.1 - 8.0 g/dL [facility] Albumin 4.2 3.2 - 5.2 g/dL [facility] Aspartate Aminotransferase 16 0 - 30 unit/L [facility] Alanine Aminotransferase 27 0 - 30 unit/L [facility] Alkaline Phosphatase 113(H) 35 - 105 unit/L [facility] Bilirubin, Total 0.5 0.2 - 1.3 mg/dL [facility] Est Glomerular Filtration Rate 70 >=60 mL/min/1. 73 m?? [facility] Comment: This patient's estimated GFR [...] Lab Leandra Lopes APRN CHEMISTRY ORDERABL ES [facility] [place] [address] documented in this encounter Visit Diagnoses Diagnosis Ocular melanoma, left documented in this encounter Care Teams Records Management Coordinator Relationship Specialty Start Date End Date Luis E Narayan MD [facility] DR LILI [place] [address] PCP - General Family Medicine 01/20/22 07/17/22 documented as of this encounter
--- OUTSIDE RECORDS SUMMARY | 2024-04-15 15:51 | XMS_ITS | Encounter Summary ---
Author Organization [facility] Address [facility] [place] [address] Care Team Providers Care Cnc Mill Operator Name Role Phone Luis E Narayan MD Primary Care Provider [phone] [phone] Encounter Details Date Type Department Care Team [...] 05/01/2024 11:20 AM EDT Appointment Mammography/[place] [phone] Rodney Padilla MD 05/01/2024 1:45 PM EDT Office [place] [phone] Juanpablo Hernandez MD [facility] [place] [address] 05/23/2024 2:45 PM EST Clinical Support Family Medicine at [address] [phone] Julia Low, [facility] 01/30/2025 1:30 PM EDT Laboratory Appointment [place] [facility] [address] [place] [address] 01/30/2025 3:[address] [place] [address] Arturo Cordero MD [facility] HEMATOLOGY [place] [address] 01/30/2025 4:15 PM EDT Office Visit Hematology [place] [address] Arturo Cordero MD [facility] HEMATOLOGY [place] [address] documented as of this encounter Visit Diagnoses Not on filedocumented in this encounter Care Teams Cnc Mill Operator Relationship Specialty Start Date End Date Luis E Narayan MD [facility] [address] [place] [address] PCP - General Family Medicine 01/20/22 07/17/22 documented as of this encounter
--- OUTSIDE RECORDS SUMMARY | 2024-04-15 15:51 | XMS_ITS | Encounter Summary ---
[place] [address] Care Team Providers Care Senior Portfolio Manager Name Role Phone Rodney Padilla MD Primary Care Provider Unav ailable Reason for Visit * Diagnostic Test (Routine) - Closed Specialty Diagnoses / Procedures Referred By Gonzalez kumari Referred To Contact Radiology Diagnoses Dyspepsia Nausea without vomiting Procedures NM Gastric Emptying Scan lAejandra Pop, LEGAL TRANSCRIBER [address] [place] [address] [place] [address] Referral ID Status Reason Start Date Expiration Date V isits Requested Visits Authorized [id number] Closed Specialty Service Requested 06/17/2022 12/17/2023 1 1 Encounter Details Date Type Department Care Team (Latest Contact Info) Description 10/18/2022 10:21 AM EDT Hospital Encounter [place] [address] Alejandra Pop APRN [address] [place] [address] Discharge Disposition: Home Social History [...] Sig Dispensed Refills Start Date End Date Roberto Lopez 28 gauge MiscIndications:diabe escobar mellitus 1 each [...] 09/26/2022 09/19/2023 fluticasone propionate (Flonase) 50 mcg/actuation [place], Suspension 1 spray by Each Nare route [...] 1 each 12/10/2021 02/04/2023 FreeStyle Sanjana 2 [place] MiscIndications:diabe escobar mellitus 1 each by Other [...] 05/01/2024 11:20 AM EDT Appointment Mammography/[place] [phone] Rodney Padilla MD 05/01/2024 1:45 PM EDT Office [place] [address] Juanpablo Hernandez MD [facility] [place] [address] 05/23/2024 2:45 PM EST Clinical Support Family Medicine at [facility] [address] [place] [address] Julia Low, [facility] 01/30/2025 1:30 PM EDT Laboratory Appointment Lab at [facility] Hematology Oncology [address] [place] [address] 01/30/2025 3:[address] [place] [phone] Arturo Cordero MD [facility] DR [place] [address] 01/30/2025 4:15 PM EDT Office Visit Hematology [place] [address] Arturo Cordero MD [facility] DR [place] [address] documented as of this encounter Procedures Procedure [...] who have questions please contact the health laboratory animal caretaker that requested your imaging first. ? [...] patients who have questions please contactthe health laboratory animal caretaker that requested your imaging first. Alejandra Pop LEGAL TRANSCRIBER IMG NM ORDERABLE S documented in this encounter Visit Diagnoses Not on filedocumented in this encounter Care Teams Senior Portfolio Manager Relationship Specialty Start Date End Date Rodney Padilla MD PCP - General 07/18/22 04/09/24 documented as of this encounter
--- OUTSIDE RECORDS SUMMARY | 2024-04-15 15:51 | XMS_ITS | Encounter Summary ---
Author Organization [facility] Address [facility] [place] [address] Care Team Providers Care Pressfitter Name Role Phone Rodney Padilla MD Primary Care Provider Unav ailable Encounter Details Date Type Department Care Team (Late st Contact Info) Description 07/18/2022 Telephone Family Medicine at [address] [place] [address] Rodney Padilla MD Social History [...] get [facility] and that [...] AM EDT Appointment Mammography/DXA at [place] [phone] Rodney Padilla MD 05/01/2024 1:45 PM EDT Office Visit Ophthalmology at [place] [phone] Juanpablo Hernandez MD [facility] [place] [address] 05/23/2024 2:45 PM [facility] Clinical Support Family Medicine at [facility] [address] [place] [phone] Julia Low, [facility] 01/30/2025 1:30 PM EDT Laboratory Appointment Lab at [facility] Hematology Oncology [address] [place] [address] 01/30/2025 3:[address] [place] [phone] Arturo Cordero MD [facility] DR HEMATOLOGY [place] [address] 01/30/2025 4:15 PM EDT Office Visit Hematology [place] [phone] Arturo Cordero MD [facility] [place] [address] documented as of this encounter Visit Diagnoses Not on filedocumented in this encounter Care Teams Pressfitter Relationship Specialty Start Date End Date Rodney Padilla MD PCP - General 07/18/22 04/09/24 documented as of this encounter
--- OUTSIDE RECORDS SUMMARY | 2024-04-15 15:51 | XMS_ITS | Encounter Summary ---
Author Organization [facility] Address [facility] [place] [address] Care Team Providers Care Rope Tier Name Role Phone Daryn Garrett MD Primary Care Provider Reason for Visit * Reason Onset Date Comments Medication Refill 06/20/2022 Encounter Details Date Type Department Care Team (Late st Contact Info) Description 06/20/2022 Refill Family Medicine at [facility] [address] [place] [address] Luis E Narayan MD [facility] DR LILI [place] [address] COPD Social History Tobacco Use Types Packs/Day [...] 05/01/2024 11:20 AM EDT Appointment Mammography/[place] [phone] Rodney Padilla MD 05/01/2024 1:45 PM EDT Office Visit Ophthalmology at [place] [phone] Juanpablo Hernandez MD [facility] [place] [address] 05/23/2024 2:45 PM EST Clinical Support Family Medicine at [place] [address] [place] [phone] Julia Low, [facility] 01/30/2025 1:30 PM EDT Laboratory Appointment Lab [place] [facility] [place] [address] [place] [address] 01/30/2025 3:[address] Scan at [place] [phone] Arturo Cordero MD [facility] DR HEMAT[place] [address] 01/30/2025 4:15 PM EDT Office Visit Hematology [place] [phone] Arturo Cordero MD [facility] DR [place]EMAT[place] [address] documented as of this encounter Visit Diagnoses Diagnosis COPD Simple chronic bronchitis documented in this encounter Care Teams Rope Tier Relationship Specialty Start Date End Date Daryn Garrett MD [facility] DR LILI [place] [address] PCP - General 04/10/24 documented as of this encounter
--- OUTSIDE RECORDS SUMMARY | 2024-04-15 15:52 | XMS_ITS | Encounter Summary ---
Author Organization [facility] Address [facility] [place] [address] Care Team Providers Care Hot Worker Name Role Phone Luis E Narayan MD Primary Care Provider +1- [phone] Reason for Visit * Reason Onset Date Comments Other 04/07/2022 Order Issues Encounter Details Date Type Department Care Team (Late st Contact Info) Description 04/07/2022 Telephone Family Medicine at [facility] [address] [place] [phone] Luis E Narayan MD [facility] DR LL[address] [place] [address] Other (Order Issues) Social History Tobacco Use [...] EDT Order signed by COS. Faxed to [facility] along with associated documents * Telephone Encounter - Alejandra Posadas RN - 04/08/2022 6:52 AM EDT Prepped/pended DME that will print for faxing. Need Physician or ESTHELA signature. Needs to be faxed to [facility] along with demographics and office notes from [...] 04/07/2022 10:07 AM EDT Message: Ani from [facility] calling in regards to orders received for Nebulizer. She statesshe just needs provider to also send in prescription for supplies along with it. Please call with questions/concerns Ask caller their first and last name and [facility] to the [facility] Best time to call back: Any Ok to leave a message: Yes Ok to send my- message: x Offered Appointment: x MA/Nurse/Lion Tamer contacted via: Message: Yes Call: x Pager: x documented in this encounter Plan of Treatment Upcoming Encounters Date Type Department Care Team (Late st Contact Info) Description 05/01/2024 11:20 AM EDT Appointment Mammography/DXA at [place] [phone] Rodney Padilla MD 05/01/2024 1:45 PM EDT Office Visit Ophthalmology at [place] [phone] Juanpablo Hernandez MD [facility] [place] [address] 05/23/2024 2:45 PM EST Clinical Support Family Medicine at [facility] [address] [place] [phone] Julia Low, [facility] 01/30/2025 1:30 PM EDT Laboratory Appointment Lab at [facility] Hematology Oncology [address] [place] [id number] 01/30/2025 3:[address] [place] [address] Arturo Cordero MD [facility] [address] [place] [address] 01/30/2025 4:15 PM EDT Office Visit Hematology [place] [address] Arturo Cordero MD [facility] [address] [place] [address] documented as of this encounter Visit Diagnoses Diagnosis Simple chronic bronchitis documented in this encounter Care Teams Hot Worker Relationship Specialty Start Date End Date Luis E Narayan MD [facility] [address] [place] [address] PCP - General Family Medicine 01/20/22 07/17/22 documented as of this encounter
--- OUTSIDE RECORDS SUMMARY | 2024-04-15 15:52 | XMS_ITS | Encounter Summary ---
Author Organization [facility] [place] [address] Care Team Providers Care Woolen Tester Name Role Phone Luis E Narayan MD Primary Care Provider [phone] Encounter Details Date Type Department Care Team (Late st Contact Info) Description 03/21/2022 1:09 PM EDT - 03/21/2022 11:59 PM EDT Hospital Encounter [place] [address] Leandra Black, CAN LINE EXAMINER [facility] DR HEMATOLOGY [place] [address] Malignant melanoma of conjunctiva, left Discharge Disposition: [...] 1 each 12/10/2021 02/04/2023 FreeStyle Sanjana 2 [place] MiscIndications:diabetes mellitus 1 each by Other route daily. Indications: diabetes mellitus 1 each 10/26/2021 01/23/2023 FreeStyle Sanjana 2 Sensor KitIndications:diabetes mellitus 1 each by Other route every 14 days. Indications: diabetes mellitus 2 kit 10/26/2021 01/23/2023 FreeStyle Lancets 28 gauge MiscIndications:diabetes mellitus 1 each by Other route 3 times daily. Indications: diabetes mellitus 100 each 11 10/11/2021 06/16/2022 fluticasone propionate (Flonase) 50 mcg/actuation [place], Suspension 1 spray by Each Nare route [...] EDT Appointment Mammography/[place] [address] Rodney Padilla MD 05/01/2024 1:45 PM EDT Office [place] [address] Juanpablo Hernandez MD [facility] [place] [address] 05/23/2024 2:45 PM EST Clinical Support Family Medicine at [place] [address] [place] [address] Julia Low [facility] 01/30/2025 1:30 PM EDT Laboratory Appointment Lab at [facility] [place] On[place] [address] [place] [address] 01/30/2025 3:[address] [place] [address] Arturo Cordero MD [facility] DR HEMATOLOGY [place] [address] 01/30/2025 4:15 PM EDT Office Visit Hematology [place] [address] Arturo Cordero MD [facility] HEMATOLOGY [place] [address] documented as of this encounter Procedures Procedure [...] PM Electronically signed by: Roland Izaguirre MD, [facility] ([phone]), at 03/21/2022 1:56 PM Thank you for letting us participate in the care of this patient. If you are a health care provider and have any questions regarding this report, please contact the number above. For patients who have questions, please contact the health child care group leader that requested your imaging first. ? Roland Izaguirre, Staff Physician Electronically Signed Final Report ?? 03/21/2022 02:04 pm Narrative 03/21/2022 2:05 PM EDT Ultrasound Lymph Node ? (Signed Final 03/21/2022 02:04 pm) Report PATIENT INFO: ID #: ? [id number] ?: ??58 (61 yrs)(F) Name: ? PATIENCE MANJARREZ ? Visit Date: 03/21/2022 01:33 pm PERFORMED BY: Performed By: ? Stephany Pittman RDMS Attending: ?Dmitriy COLVIN, Roland Fung Resident: ? Rojelio COLVIN, Gia Davalos Referred By: ?LEANDRA BLACK Location: ? [place] SERVICE(S) PROVIDED: USTN - Soft Tissue Neck or Head - [id number] ? [id number] INDICATIONS: History of left eye conjunctival melanoma s/p resection, [facility] imaging of left neck ran [place] --------- FINDINGS: --------- Title: ? Ultrasound Lymph Node Report Findings: ?Several visualized lymph nodes, largest measures ?1.6 cm left level 2. Procedure Note Roland Izaguirre MD - 03/21/2022 Ultrasound Lymph Node (Signed Final 03/21/2022 02:04 pm) Report PATIENT INFO: ID #: [id number] : 58 (61 yrs)(F) Name: PATIENCE MANJARREZ Visit Date: 03/21/2022 01:33 pm PERFORMED BY: Performed By: Stephany Pittman RDMS Attending: Dmitriy COLVIN, Roland Fung Resident: Gia Serrato MD Referred By: LEANDRA BLACK Location: [place] SERVICE(S) PROVIDED: USTN - Soft Tissue Neck or Head - [id number] INDICATIONS: History of left eye conjunctival melanoma [...] PM Electronically signed by: Roland Izaguirre MD, [facility] ([phone]), at 03/21/2022 1:56 PM Thank you for letting us participate in the care of this patient. If you are a health care provider and have any questions regarding this report, please contact the number above. For patients who have questions, please contact the health child care group leader that requested your imaging first. Roland Izaguirre, Staff Physician Electronically Signed Final Report 03/21/2022 02:04 pm Leandra Black CAN LINE EXAMINER IMG US GEN ORDERAB LES documented in this encounter Visit Diagnoses Diagnosis Malignant melanoma of conjunctiva, left documented in this encounter Care Teams Woolen Tester Relationship Specialty Start Date End Date Luis E Narayan MD [facility] [place] [address] PCP - General Family Medicine 01/20/22 07/17/22 documented as of this encounter
--- OUTSIDE RECORDS SUMMARY | 2024-04-15 15:52 | XMS_ITS | Encounter Summary ---
Author Organization [facility] [place] [address] Care Team Providers Care Banking Representative Name Role Phone Luis E Narayan MD Primary Care Provider [phone] Reason for Visit * Diagnostic Test (Routine) - Closed Specialty Diagnoses / Procedures Referred By Gonzalez kumari Referred To Contact Gastroenterology Diagnoses Bloating Dyspepsia HBT - glucose - bloating Procedures Breath Hydrogen Test HBT - glucose - bloating Alejandra Pop, PIGMENT MAKING SUPERVISOR [address] [address] [facility] [place] [address] [place] [address] Referral ID Status Reason Start Date Expiration Date V isits Requested Visits Authorized [id number] Closed Consult, Test & Treat 03/01/2022 03/01/2023 1 1 Encounter Details Date Type Department Care Team (Late st Contact Info) Description 05/13/2022 10:00 AM EDT Procedure [place] [phone] Bloating; Dyspepsia Social History Tobacco Use Types [...] Breath Testing in Gastrointestinal Disorders: The [place] Consensus (Am J Gastroenterol 2017; 112(5):775-84. Apositive breath test is defined as a rise in hydrogen production >20 ppm compared to baseline within 90 minutes. Methane-positive is defined by at least 10 ppm production of methane. Signed, Alejandra Pop APRN [place]astroenterology [place] [address] P: [phone] F: [phone] Copy: Alejandra Narayan MD documented in this encounter Plan of Treatment Upcoming Encounters Date Type Department Care Team (Late st Contact Info) Description 05/01/2024 11:20 AM EDT Appointment Mammography/[place] [address] Rodney Padilla MD 05/01/2024 1:45 PM EDT Office [place] [address] Juanpablo Hernandez MD [facility] [place] [address] 05/23/2024 2:45 PM EST Clinical Support Family Medicine at [facility] [address] [place] [address] Julia Low [facility] 01/30/2025 1:30 PM EDT Laboratory Appointment Lab at [facility] Hematology Oncology [address] [place] [address] 01/30/2025 3:[address] [place] [address] Arturo Cordero MD [facility] HEMATOLOGY [place] [address] 01/30/2025 4:15 PM EDT Office Visit Hematology [place] [address] Arturo Cordero MD [facility] HEMATOLOG[place] [address] documented as of this encounter Visit Diagnoses Diagnosis Bloating Flatulence, eructation, and gas pain Dyspepsia Dyspepsia and other specified disorders of function of stomach documented in this encounter Care Teams Banking Representative Relationship Specialty Start Date End Date Luis E Narayan MD [facility] [address] [place] [address] PCP - General Family Medicine 01/20/22 07/17/22 documented as of this encounter
--- OUTSIDE RECORDS SUMMARY | 2024-04-15 15:52 | XMS_ITS | Encounter Summary ---
Author Organization [facility] [place] [address] Care Team Providers Care Sales And Service Associate Name Role Phone Luis E Narayan MD Primary Care Provider Encounter Details Date Type Department Care Team (Late st Contact Info) Description 04/21/2022 Telephone Family Medicine at [address] [place] [address] Shannon Ward, RN Social History Tobacco Use [...] 04/21/2022 4:24 PM EDT Letter received from [facility] requesting neb supplies with nebulizer order. DME order re-prepped and pended for provider review. documented in this encounter Plan of Treatment Upcoming Encounters Date Type Department Care Team (Late st Contact Info) Description 05/01/2024 11:20 AM EDT Appointment Mammography/[place] [address] Rodney Padilla MD 05/01/2024 1:45 PM EDT Office [place] [address] Juanpablo Hernandez MD [facility] [place] [address] 05/23/2024 2:45 PM EST Clinical Support Family Medicine at [facility] [address] [place] [address] Julia Low [facility] 01/30/2025 1:30 PM EDT Laboratory Appointment Lab at [facility] Hematology Oncology [address] [place] [address] 01/30/2025 3:[address] [place] [address] Arturo Cordero MD [facility] DR [place] [address] 01/30/2025 4:15 PM EDT Office Visit Hematology [place] [address] Arturo Cordero MD [facility] DR [place] [address] documented as of this encounter Visit Diagnoses Diagnosis COPD Simple chronic bronchitis documented in this encounter Care Teams Sales And Service Associate Relationship Specialty Start Date End Date Luis E Narayan MD [facility] DR LIL[facility] [place] [address] PCP - General Family Medicine 01/20/22 07/17/22 documented as of this encounter
--- OUTSIDE RECORDS SUMMARY | 2024-04-15 15:52 | XMS_ITS | Encounter Summary ---
Author Organization [facility] [place] [address] Care Team Providers Care Log Rafter Name Role Phone Luis E Narayan MD Primary Care Provider [phone] Encounter Details Date Type Department Care Team (Late st Contact Info) Description 05/07/2022 Telephone Hematology [place] [address] Dar Fernandez MD [facility] DR HEMATOLOGY/[place] [address] Social History Tobacco Use Types Packs/Day Years [...] scheduled for next week. Dar Fernandez MD pool lifeguard in Hematology-Oncology documented in this encounter Plan of Treatment Upcoming Encounters Date Type Department Care Team (Late st Contact Info) Description 05/01/2024 11:20 AM EDT Appointment Mammography/[place] [address] Rodney Padilla MD 05/01/2024 1:45 PM EDT Office Visit Ophthalmology at [place] [phone] Juanpablo Hernandez MD [facility] [place] [address] 05/23/2024 2:45 PM EST Clinical Support Family Medicine at [facility] [address] [place] [address] Julia Low [facility] 01/30/2025 1:30 PM EDT Laboratory Appointment Lab at [facility] Hematology Oncology [address] [place] [address] 01/30/2025 3:[address] [place] [address] Arturo Cordero MD [facility] [place] [address] 01/30/2025 4:15 PM EDT Office Visit Hematology [place] [address] Arturo Cordero MD [facility] [place] [address] documented as of this encounter Visit Diagnoses Not on filedocumented in this encounter Care Teams Log Rafter Relationship Specialty Start Date End Date Luis E Narayan MD [facility] [address] [facility] [place] [address] PCP - General Family Medicine 01/20/22 07/17/22 documented as of this encounter
--- OUTSIDE RECORDS SUMMARY | 2024-04-15 15:52 | XMS_ITS | Encounter Summary ---
Author Organization [facility] Address [facility] [place] [address] Care Team Providers Care Java Lead Architect Name Role Phone Daryn Garrett MD Primary Care Provider Reason for Visit * Reason Onset Date Comments Medication Refill 04/14/2022 Encounter Details Date Type Department Care Team (Late st Contact Info) Description 04/14/2022 Refill Family Medicine at [facility] [address] [place] [address] Luis E Narayan MD [facility] DR LILI WALKER-[place] [address] Social History Tobacco Use Types Packs/Day Years [...] 05/01/2024 11:20 AM EDT Appointment Mammography[place] [address] Rodney Padilla MD 05/01/2024 1:45 PM EDT Office [place] [address] Juanpablo Hernandez MD [facility] [place] [address] 05/23/2024 2:45 PM EST Clinical Support Family Medicine at [facility] [address] [place] [address] Julia Low [facility] 01/30/2025 1:30 PM EDT Laboratory Appointment Lab at [facility] Hematology Oncology [address] [place] [address] 01/30/2025 3:[address] [place] [address] Arturo Cordero MD [facility] HEMATOLOGY [place] [address] 01/30/2025 4:15 PM EDT Office Visit Hematology [place] [address] Arturo Cordero MD [facility] HEMATOLOGY [place] [address] documented as of this encounter Visit Diagnoses Not on filedocumented in this encounter Care Teams Java Lead Architect Relationship Specialty Start Date End Date Daryn Garrett MD [facility] DR LILI WALKER - [place] [address] PCP - General 04/10/24 documented as of this encounter
--- OUTSIDE RECORDS SUMMARY | 2024-04-15 15:52 | XMS_ITS | Encounter Summary ---
Author Organization [facility] Address [facility] [place] [address] Care Team Providers Care Strategic Planning Director Name Role Phone Luis E Narayan MD Primary Care Provider [phone] Reason for Visit * Reason Onset Date Comments Medication Refill 05/17/2022 Encounter Details Date Type Department Care Team (Late st Contact Info) Description 05/17/2022 Refill Family Medicine at [facility] [address] [place] [address] Terry Love, TEST TECHNICIAN [facility] DR LILI WALKER-FAMILY MEDICINE [place], [place] [phone] Social History Tobacco Use Types Packs/Day Years [...] 05/01/2024 11:20 AM EDT Appointment Mammography/DXA at [place] [phone] Rodney Padilla MD 05/01/2024 1:45 PM EDT Office Visit Ophthalmology at [place] [phone] Juanpablo Hernandez MD [facility] [place] [address] 05/23/2024 2:45 PM EST Clinical Support Family Medicine at [address] [phone] Julia Low, [facility] 01/30/2025 1:30 PM EDT Laboratory Appointment Lab at [facility] Hematology Oncology [address] [place] [address] 01/30/2025 3:[address] Scan at [place] [phone] Arturo Cordero MD [facility] [place] [address] 01/30/2025 4:15 PM EDT Office Visit Hematology [place] [address] Arturo Cordero MD [facility] [place] [address] documented as of this encounter Visit Diagnoses Not on filedocumented in this encounter Care Teams Strategic Planning Director Relationship Specialty Start Date End Date Luis E Narayan MD [facility] DR LILI [place] [address] PCP - General Family Medicine 01/20/22 07/17/22 documented as of this encounter
--- OUTSIDE RECORDS SUMMARY | 2024-04-15 15:52 | XMS_ITS | Encounter Summary ---
Author Organization [facility] [place] [address] Care Team Providers Care Moid [employer] Teacher Name Role Phone Luis E Narayan MD Primary Care Provider [phone]- [phone] Reason for Referral * Psychiatric (Routine) - Closed Specialty Diagnoses / Procedures Referred By Gonzalez kumari Referred To Contact Psychiatry Diagnoses Chronic insomnia Asha Morataya MD [facility] [place] [address] Sadie Weinberg, PhD [facility] DR LILI [place] [address] Referral ID Status Reason Start Date Expiration Date V isits Requested Visits Authorized [id number] Closed Specialty Service Requested 04/19/2022 04/19/2023 1 1 Encounter Details Date Type Department Care Team (Late st Contact Info) Description 04/19/2022 11:00 AM EDT Office Visit Sleep Center at [facility] [address] [place] [address] Asha Morataya MD [facility] [place] [address] Chronic insomnia; TITO (obstructive sleep apnea) Social [...] drive. If you get sleepy while driving rack puller ,turn the car off and nap. You may resume driving once you feel alert. 12) Read No More Sleepless Nights by Mack Heaton PhD. 13) There are some on-line resources that do require a fee that can be of help. Two credible websites are as follows: http://www.UsTrendy https://www.sleepio.com An star used by the [place] is as follows: CBT-I Licensed Funeral Director documented in this encounter Progress Notes * [...] no change in treatment ?? Re-evaluation in [facility] 05/09/19 On CPAP still and [...] would wake 6-6:30 am Questionnaires: Patient-reported scores: [facility] 04/13/2022 [place] [facility] 5 (Low Risk) Insomnia Severity Index 9 (Subthreshold insomnia) [facility] 05/07/2019 05/09/2019 04/13/2022 [facility] [facility] 7 (Low Risk) 10 (High Risk) [...] Diagnosis Code ??? 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 Altered [...] 11 ??? fluticasone propionate (Flonase) 50 mcg/actuation [place], Suspension 1 spray by Each Nare route [...] Lite Meter Kit ??? FreeStyle Sanjana 2 [place] Misc 1 each by Other route daily. [...] unapproved cleaning methods (such as ozone generating bridal consultant). She is not aware of any black particles in the PAP circuit. Discussed that at this time, we believe that the benefit of CPAP likely outweighs the risk and that the retail sales merchandiser development will replace or repair the machine - [...] counseling, chart review and documentation. Established patient: 03411: ___Total time including face to face, chart review and documentation of 20-29 min OR ___Low level of medical decision making (ie 1 stable (= at goal) chronic illnesses and low risk of morbidity) [address]4818: ___Total time including face to face, chart review and documentation of 30-39 min OR ___Moderate level of medical decision making (ie 1 chr illness with exac, progression or side effects of treatment or 2+ stable chronic illnesses and moderate risk of morbidity) [address]36: _X__Total time including face to face, chart [...] 05/01/2024 11:20 AM EDT Appointment Mammography/[place] [address] Rodney Padilla MD 05/01/2024 1:45 PM EDT Office [place] [address] Juanpablo Hernandez MD [facility] [place] [address] 05/23/2024 2:45 PM EST Clinical Support Family Medicine at [facility] [address] [place] [address] Julia Low [facility] 01/30/2025 1:30 PM EDT Laboratory Appointment Lab at [facility] Hematology Oncology [address] [place] [address] 01/30/2025 3:[address] [place] [address] Arturo Cordero MD [facility] [place] [address] 01/30/2025 4:15 PM EDT Office Visit Hematology [place] [address] Arturo Cordero MD [facility] DR [place] [address] Scheduled Referrals Name Type Priority Associated Diagnoses Order Schedule Referral to Behavioral Health Outpatient Referral Routine Chronic insomnia Ordered: 04/19/2022 documented as of this encounter Visit Diagnoses Diagnosis Chronic insomnia Insomnia, unspecified TITO (obstructive sleep apnea) Obstructive sleep apnea (adult) (pediatric) documented in this encounter Care Teams [employer] Teacher Relationship Specialty Start Date End Date Luis E Narayan MD [facility] DR LILI [place] [address] PCP - General Family Medicine 01/20/22 07/17/22 documented as of this encounter
--- OUTSIDE RECORDS SUMMARY | 2024-04-15 15:52 | XMS_ITS | Encounter Summary ---
Author Organization [facility] [address] Care Team Providers Care Ribbon Winder Name Role Phone Luis E Narayan MD Primary Care Provider [phone]- [phone] Encounter Details Date Type Department Care Team (Late st Contact Info) Description 03/25/2022 Telephone Hematology [place] [address] Dar Fernandez MD [facility] DR HEMATOLOGY/[place] [address] Social History Tobacco Use Types Packs/Day Years [...] Miscellaneous Notes * Telephone Encounter - Dar Fernadnez MD - 03/25/2022 8:49 PM EDT Heme-Onc Staff I have reviewed the patient's record and, given personal and/or family history of cancer she shouldbe seen by a genetic counselor. This is scheduled for next week. Dar Fernandez MD second cutter in Hematology-Oncology documented in this encounter Plan of Treatment Upcoming Encounters Date Type Department Care Team (Late st Contact Info) Description 05/01/2024 11:20 AM EDT Appointment Mammography[place] [address] Rodney Padilla MD 05/01/2024 1:45 PM EDT Office Visit Ophthalmology at [place] [phone] Juanpablo Hernandez MD [facility] [place] [address] 05/23/2024 2:45 PM EST Clinical Support Family Medicine at [facility] [address] [place] [address] Julia Low [facility] 01/30/2025 1:30 PM EDT Laboratory Appointment Lab at [facility] Hematology Oncology [address] [place] [address] 01/30/2025 3:[address] [place] [address] Arturo Cordero MD [facility] DR HEMATOLOGY [place] [address] 01/30/2025 4:15 PM EDT Office Visit Hematology [place] [address] Arturo Cordero MD [facility] DR HEMATOLOGY [place] [address] documented as of this encounter Visit Diagnoses Not on filedocumented in this encounter Care Teams Ribbon Winder Relationship Specialty Start Date End Date Luis E Narayan MD [facility] DR LILI W[place] [address] PCP - General Family Medicine 01/20/22 07/17/22 documented as of this encounter
--- OUTSIDE RECORDS SUMMARY | 2024-04-15 15:52 | XMS_ITS | Encounter Summary ---
Author Organization [facility] Address [facility] [place] [address] Care Team Providers Care Film Reproducer Name Role Phone Luis E Narayan MD Primary Care Provider +1- [phone] Reason for Visit * Reason Onset Date Comments Other 04/14/2022 Encounter Details Date Type Department Care Team (Late st Contact Info) Description 04/14/2022 Telephone Family Medicine at [facility] [address] [place] [address] Luis E Narayan MD [facility] DR LILI [place] [address] Other Social History Tobacco Use Types Packs/Day [...] of the facility where patient was seen: [facility]. [address] [place], [place] [address]. Symptomatic now: yes Other information: Patient called [...] leave a message: y Okay to send [facility] message: y Nurse contacted via: Message: X Call: n/a Pager: n/a documented in this encounter Plan of Treatment Upcoming Encounters Date Type Department Care Team (Late st Contact Info) Description 05/01/2024 11:20 AM EDT Appointment Mammography/[place] [address] Rodney Padilla MD 05/01/2024 1:45 PM EDT Office Visit [place] [address] Juanpablo Hernandez MD [facility] [place] [address] 05/23/2024 2:45 PM EST Clinical Support Family Medicine at [address] [address] Julia Low [facility] 01/30/2025 1:30 PM EDT Laboratory Appointment Lab at [facility] Hematology Oncology [address] [place] [address] 01/30/2025 3:[address] [place] [address] Arturo Cordero MD [facility] DR [place] [address] 01/30/2025 4:15 PM EDT Office Visit Hematology [place] [address] Arturo Cordero MD [facility] [place] [address] documented as of this encounter Visit Diagnoses Not on filedocumented in this encounter Care Teams Film Reproducer Relationship Specialty Start Date End Date Luis E Narayan MD [facility] [address] [place] [address] PCP - General Family Medicine 01/20/22 07/17/22 documented as of this encounter
--- OUTSIDE RECORDS SUMMARY | 2024-04-15 15:52 | XMS_ITS | Encounter Summary ---
Author Organization [place] [address] Care Team Providers Care Installer Soft Top Name Role Phone Luis E Narayan MD Primary Care Provider +1- [phone] Reason for Visit * Reason Onset Date Comments Results 05/23/2022 Encounter Details Date Type Department Care Team (Late st Contact Info) Description 05/23/2022 Telephone Hematology [place] [address] Tito Matta V [facility] Hematology/[place] [address] Results Social History Tobacco Use Types Packs/Day [...] * Telephone Encounter - Gudelia Mattas Selvin, [facility] - 05/23/2022 11:33 AM EST This test result was discussed with the patient by phone. A copy of the test results have been scanned in the medical record and sent to [facility]. A summary of the results is provided below. Please beadvised that [place] law requires that all health care workers respect the confidentiality ofthis information and not pass it along to other health care providers, insurance companies, or individuals without the written permission of the patient. The Familial Cancer Program welcomes any questions about these matters. Our phone number is: [phone]. On 05/13/2022 [facility] was seen for genetic counseling and subsequently underwent genetic testing for a hereditary predisposition to Renal/Ur. Following are the results of this test. Result: Basha's Renal/Urinary Tract Cancers Panel showed no mutation [...] [facility] had previously opted for reflex to Basha's Multi-Cancer Panel andthis additional testing is still [...] 05/01/2024 11:20 AM EDT Appointment Mammography[place] [address] Rodney Padilla MD 05/01/2024 1:45 PM EDT Office [place] [address] Juanpablo Hernandez MD [facility] [place] [address] 05/23/2024 2:45 PM EST Clinical Support Family Medicine at [facility] [address] [place] [address] Julia Low, [facility] 01/30/2025 1:30 PM EDT Laboratory Appointment Lab at [facility] Hematology Oncology [address] [place] [address] 01/30/2025 3:[address] [place] [address] Arturo Cordero MD [facility] [place] [address] 01/30/2025 4:15 PM EDT Office Visit Hematology [place] [address] Arturo Cordero MD [facility] [place] [address] documented as of this encounter Visit Diagnoses Not on filedocumented in this encounter Care Teams Installer Soft Top Relationship Specialty Start Date End Date Luis E Narayan MD [facility] DR LILI [place] [address] PCP - General Family Medicine 01/20/22 07/17/22 documented as of this encounter
--- OUTSIDE RECORDS SUMMARY | 2024-04-15 15:52 | XMS_ITS | Encounter Summary ---
Author Organization [facility] Address [facility] [place] [address] Care Team Providers Care Instrument Mechanic Name Role Phone Luis E Narayan MD Primary Care Provider [phone] Encounter Details Date Type Department Care Team (Late st Contact Info) Description 05/13/2022 Orders Only Hematology [place] [address] Tito Matta V, [facility] Hematology/[place] [address] Ocular melanoma, left; Renal cell cancer, left [...] AM EDT Appointment Mammography/[place] [address] Rodney Padilla MD 05/01/2024 1:45 PM EDT Office [place] [address] Juanpablo Hernandez MD [facility] [place] [address] 05/23/2024 2:45 PM EST Clinical Support Family Medicine at [facility] [address] [place] [address] Julia Low, [facility] 01/30/2025 1:30 PM EDT Laboratory Appointment Lab at [facility] Hematology Oncology [address] [place] [address] 01/30/2025 3:[address] [place] [address] Arturo Cordero MD [facility] DR [place] [address] 01/30/2025 4:15 PM EDT Office Visit Hematology [place] [address] Arturo Cordero MD [facility] DR [place] [address] documented as of this encounter Results * Research Venipuncture (05/13/2022 1:05 PM EDT) [facility] Research Venipuncture Drawn [facility] Comment: Collection date/time has been modified to: 13:05:00. ??Previous collection date/time: 13:08:00. Corrected from Drawn [NA] on 05/13/22 13:36:44 EDT by Cyndi Dowd Blood 05/13/2022 1:05 PM EDT 05/13/2022 1:25 PM EDT Narrative Resulting Agency Comment Spec In Lab Dar Fernandez MD CHEMISTRY ORDERABLES [facility] [place] [address] documented in this encounter Visit Diagnoses Diagnosis Ocular melanoma, left Renal cell cancer, left documented in this encounter Care Teams Instrument Mechanic Relationship Specialty Start Date End Date Luis E Narayan MD [facility] [address] [place] [address] PCP - General Family Medicine 01/20/22 07/17/22 documented as of this encounter
--- OUTSIDE RECORDS SUMMARY | 2024-04-15 15:52 | XMS_ITS | Encounter Summary ---
Author Organization [facility] Address [facility] [place] [address] Care Team Providers Care Chief Hospital Administrator Name Role Phone Luis E Narayan MD Primary Care Provider +1- [phone] Encounter Details Date Type Department Care Team (Late st Contact Info) Description 04/07/2022 Telephone Family Medicine at [facility] [address] [place] [address] Earl Valdez MD [facility] DR LILI [place] [address] Social History Tobacco Use Types Packs/Day Years [...] 05/01/2024 11:20 AM EDT Appointment Mammography/[place] [address] Rodney Padilla MD 05/01/2024 1:45 PM EDT Office [place] [address] Juanpablo Hernandez MD [facility] [place] [address] 05/23/2024 2:45 PM EST Clinical Support Family Medicine at [facility] [address] [place] [address] Julia Low [facility] 01/30/2025 1:30 PM EDT Laboratory Appointment Lab at [facility] Hematology Oncology [address] [place] [address] 01/30/2025 3:[address] [place] [address] Arturo Cordero MD [facility] [place]ATOLOG[place] [address] 01/30/2025 4:15 PM EDT Office Visit Hematology [place] [address] Arturo Cordero MD [facility] DR [place]ATOLOG[place] [address] documented as of this encounter Visit Diagnoses Not on filedocumented in this encounter Care Teams Chief Hospital Administrator Relationship Specialty Start Date End Date Luis E Narayan MD [facility] DR [address] [place] [address] PCP - General Family Medicine 01/20/22 07/17/22 documented as of this encounter
--- OUTSIDE RECORDS SUMMARY | 2024-04-15 15:52 | XMS_ITS | Encounter Summary ---
Author Organization [facility] [place] [address] Care Team Providers Care Corporate Responsibility Officer Name Role Phone Luis E Narayan MD Primary Care Provider +1- [phone] Reason for Visit * Reason Onset Date Comments Appointment 04/19/2022 Encounter Details Date Type Department Care Team (Late st Contact Info) Description 04/19/2022 Telephone Internal Medicine at [facility] [address] [place] [address] Cara Thomas, RN Appointment Social History Tobacco [...] 11:20 AM EDT Appointment Mammography/[place] [address] Rodney Padilla MD 05/01/2024 1:45 PM EDT Office [place] [address] Juanpablo Hernandez MD [facility] [place] [address] 05/23/2024 2:45 PM EST Clinical Support Family Medicine at [facility] [address] [address] Julia Low [facility] 01/30/2025 1:30 PM EDT Laboratory Appointment Lab at [facility] Hematology Oncology [address] [place] [address] 01/30/2025 3:[address] [place] [address] Arturo Cordero MD [facility] [place] [address] 01/30/2025 4:15 PM EDT Office Visit Hematology [place] [address] Arturo Cordero MD [facility] [place] [address] documented as of this encounter Visit Diagnoses Not on filedocumented in this encounter Care Teams Corporate Responsibility Officer Relationship Specialty Start Date End Date Luis E Narayan MD [facility] DR LIL[address] [place] [address] PCP - General Family Medicine 01/20/22 07/17/22 documented as of this encounter
--- OUTSIDE RECORDS SUMMARY | 2024-04-15 15:52 | XMS_ITS | Encounter Summary ---
Author Organization [facility] Address [facility] [place] [address] Care Team Providers Care Manager Transfusion Name Role Phone Luis E Narayan MD Primary Care Provider +1- [phone] Reason for Visit * Reason Onset Date Comments Medication Refill 04/26/2022 Encounter Details Date Type Department Care Team (Late st Contact Info) Description 04/26/2022 Refill Family Medicine at [facility] [address] [place] [address] Luis E Narayan MD [facility] DR LILI [place] [address] Social History Tobacco Use Types Packs/Day Years [...] AM EDT Appointment Mammography/[place] [address] Rodney Padilla MD 05/01/2024 1:45 PM EDT Office [place] [address] Juanpablo Hernandez MD [facility] [place] [address] 05/23/2024 2:45 PM EST Clinical Support Family Medicine at [facility] [address] [place] [address] Julia Low, [facility] 01/30/2025 1:30 PM EDT Laboratory Appointment Lab at [facility] Hematology Oncology [address] [place] [address] 01/30/2025 3:[address] [place] [address] Arturo Cordero MD [facility] DR [place] [address] 01/30/2025 4:15 PM EDT Office Visit Hematology [place] [address] Arturo Cordero MD [facility] DR [place] [address] documented as of this encounter Visit Diagnoses Not on filedocumented in this encounter Care Teams Manager Transfusion Relationship Specialty Start Date End Date Luis E Narayan MD [facility] DR LIL[address] [place] [address] PCP - General Family Medicine 01/20/22 07/17/22 documented as of this encounter
--- OUTSIDE RECORDS SUMMARY | 2024-04-15 15:52 | XMS_ITS | Encounter Summary ---
Author Organization [facility] [place] [address] Care Team Providers Care Exercise Physiologist Certified Name Role Phone Luis E Narayan MD Primary Care Provider +1 [phone] Encounter Details Date Type Department Care Team (Latest Contact Info) Description 05/13/2022 12:52 PM EDT - 05/13/2022 11:59 PM EDT Hospital Encounter [place] [address] Ocular melanoma, left; Renal cell cancer, left; [...] each 11 12/10/2021 02/04/2023 FreeStyle Sanjana 2 Hunters MiscIndications:diabet es mellitus 1 each by Other [...] 10/11/2021 06/16/2022 fluticasone propionate (Flonase) 50 mcg/actuation [place], Suspension 1 spray by Each Nare route [...] 05/01/2024 11:20 AM EDT Appointment Mammography/[place] [address] Rodney Padilla MD 05/01/2024 1:45 PM EDT Office [place] [address] Juanpablo Hernandez MD [facility] [place] [address] 05/23/2024 2:45 PM EST Clinical Support Family Medicine at [facility] [address] [place] [address] Julia Low [facility] 01/30/2025 1:30 PM EDT Laboratory Appointment Lab at [facility] Hematology Oncology [address] [place] [address] 01/30/2025 3:[address] [place] [address] Arturo Cordero MD [facility] DR [place] [address] 01/30/2025 4:15 PM EDT Office Visit [place] [address] Arturo Cordero MD [facility] DR [place] [address] documented as of this encounter Procedures Procedure Name Priority Date/Time Associated Diagnosis Comments RESEARCH VENIPUNCTURE Routine 05/13/2022 1:05 PM EDT Ocular melanoma, left Renal cell cancer, left documented in this encounter Results * Research Venipuncture (05/13/2022 1:05 PM EDT) [facility] Research Venipuncture [facility] Comment: Collection date/time has been modified to: 13:05:00. ??Previous collection date/time: 13:08:00. Corrected from Drawn [NA] on 05/13/22 13:36:44 EDT by Cyndi Dowd Blood 05/13/2022 1:05 PM EDT 05/13/2022 1:25 PM EDT Narrative Resulting Agency Comment Spec In Lab Dar Fernandez MD CHEMISTRY ORDERABLES [facility] [place] [address] documented in this encounter Visit Diagnoses Diagnosis Ocular melanoma, left Renal cell cancer, left Malignant melanoma of conjunctiva, left documented in this encounter Care Teams Exercise Physiologist Certified Relationship Specialty Start Date End Date Luis E Narayan MD [facility] [address] [place] [address] PCP - General Family Medicine 01/20/22 07/17/22 documented as of this encounter
--- OUTSIDE RECORDS SUMMARY | 2024-04-15 15:52 | XMS_ITS | Encounter Summary ---
Author Organization [facility] Address [facility] [place] [address] Care Team Providers Care Clocksmith Name Role Phone Luis E Narayan MD Primary Care Provider +1- [phone] Reason for Visit * Reason Onset Date Comments Medication Refill 04/21/2022 Encounter Details Date Type Department Care Team (Late st Contact Info) Description 04/21/2022 Refill Family Medicine at [facility] [address] [place] [address] Suzanne Martinez, KATHIA [facility] [address] [place] [address] Social History Tobacco Use Types Packs/Day Years [...] 05/01/2024 11:20 AM EDT Appointment Mammography/[place] [address] Rodney Padilla MD 05/01/2024 1:45 PM EDT Office Visit Ophthalmology at [place] [phone] Juanpablo Hernandez MD [facility] [place] [address] 05/23/2024 2:45 PM EST Clinical Support Family Medicine at [facility] [address] [place] [address] Julia Low, [facility] 01/30/2025 1:30 PM EDT Laboratory Appointment Lab at [facility] Hematology Oncology [address] [place] [address] 01/30/2025 3:[address] [place] [address] Arturo Cordero MD [facility] DR [place] [address] 01/30/2025 4:15 PM EDT Office Visit Hematology [place] [address] Arturo Cordero MD [facility] DR [place] [address] documented as of this encounter Visit Diagnoses Not on filedocumented in this encounter Care Teams Clocksmith Relationship Specialty Start Date End Date Luis E Narayan MD [facility] DR [address] [place] [address] PCP - General Family Medicine 01/20/22 07/17/22 documented as of this encounter
--- OUTSIDE RECORDS SUMMARY | 2024-04-15 15:52 | XMS_ITS | Encounter Summary ---
Author Organization [facility] Address [facility] [place] [address] Care Team Providers Care Stock Shipper Name Role Phone Luis E Nraayan MD Primary Care Provider +1- [phone] Encounter Details Date Type Department Care Team (Late st Contact Info) Description 03/21/2022 Telephone Hematology [place] [address] Leandra Lopes, COOLER SERVICER [facility] [place] [address] Social History Tobacco Use Types Packs/Day Years [...] new symptoms or concerns. Leandra Lopes DNP, COOLER SERVICER documented in this encounter Plan of Treatment Upcoming Encounters Date Type Department Care Team (Late st Contact Info) Description 05/01/2024 11:20 AM EDT Appointment Mammography/[place] [address] Rodney Padilla MD 05/01/2024 1:45 PM EDT Office [place] [address] Juanpablo Hernandez MD [facility] [place] [address] 05/23/2024 2:45 PM EST Clinical Support Family Medicine at [facility] [address] [place] [address] Julia Low [facility] 01/30/2025 1:30 PM EDT Laboratory Appointment Lab at [facility] Hematology Oncology [address] [place] [address] 01/30/2025 3:[address] [place] [address] Arturo Cordero MD [facility] DR [place] [address] 01/30/2025 4:15 PM EDT Office Visit Hematology [place] [address] Arturo Cordero MD [facility] DR [place] [address] documented as of this encounter Visit Diagnoses Not on filedocumented in this encounter Care Teams Stock Shipper Relationship Specialty Start Date End Date Luis E Narayan MD [facility] DR [address]IL[address] [place] [address] PCP - General Family Medicine 01/20/22 07/17/22 documented as of this encounter
--- OUTSIDE RECORDS SUMMARY | 2024-04-15 15:52 | XMS_ITS | Encounter Summary ---
Author Organization [facility] Address [facility] [place] [address] Care Team Providers Care Marketing Representative Name Role Phone Luis E Narayan MD Primary Care Provider +1- [phone] Reason for Visit * Reason Onset Date Comments Medication Refill 03/25/2022 Encounter Details Date Type Department Care Team (Late st Contact Info) Description 03/25/2022 Refill Family Medicine at [facility] [address] [place] [address] Cuate Solis PA [facility] DR LIL[address] W[place] [address] Essential hypertension Social History Tobacco Use Types [...] 05/01/2024 11:20 AM EDT Appointment Mammography/[place] [address] Rodney Padilla MD 05/01/2024 1:45 PM EDT Office [place] [address] Juanpablo Hernandez MD [facility] [place] [address] 05/23/2024 2:45 PM EST Clinical Support Family Medicine at [address] [address] Julia oLw [facility] 01/30/2025 1:30 PM EDT Laboratory Appointment Lab at [facility] Hematology Oncology [address] [place] [address] 01/30/2025 3:[address] [place] [address] Arturo Cordero MD [facility] HEMATOLOGY AND ONCOLOGY [place], [place] [address] 01/30/2025 4:15 PM EDT Office Visit Hematology [place] [address] Arturo Cordero MD [facility] HEMATOLOGY [place] [address] documented as of this encounter Visit Diagnoses Diagnosis Essential hypertension Unspecified essential hypertension documented in this encounter Care Teams Marketing Representative Relationship Specialty Start Date End Date Luis E Narayan MD [facility] DR LIL[address] [place] [address] PCP - General Family Medicine 01/20/22 07/17/22 documented as of this encounter
--- OUTSIDE RECORDS SUMMARY | 2024-04-15 15:52 | XMS_ITS | Encounter Summary ---
Author Organization [facility] Address [facility] [place] [address] Care Team Providers Care Mandrel Puller Name Role Phone Luis E Narayan MD Primary Care Provider +1- [phone] Reason for Visit * Reason Comments Follow-up Encounter Details Date Type Department Care Team (Late st Contact Info) Description 04/19/2022 3:30 PM EDT Office Visit Family Medicine at [facility] [address] [place] [address] Suzanne Martinez APRN [facility] DR LILI [place] [address] LLQ pain; Community acquired pneumonia, unspecified laterality; [...] this encounter Progress Notes * Suzanne Martinez, ESCROW OFFICER - 04/19/2022 3:30 PM EDT Alize Gramajo is a 61 y.o. female , patient of Luis E Narayan MD here for Chief Complaint Patient presents with ??? Follow-up Subjective HPI: Alize presents for ED follow up for [facility] visit for LLQ pain and diarrhea on [...] but ongoing. Treated empirically with Augmentin at [facility] for ?diverticulitis and she is on ~day [...] AM EDT Appointment Mammography/[place] [address] Rodney Padilla MD 05/01/2024 1:45 PM EDT Office [place] [address] Juanpablo Hernandez MD [facility] [place] [address] 05/23/2024 2:45 PM EST Clinical Support Family Medicine at [facility] [address] [place] [address] Julia Low RPH 01/30/2025 1:30 PM EDT Laboratory Appointment Lab at [facility] Hematology Oncology [address] [place] [address] 01/30/2025 3:[address] [place] [address] Arturo Cordero MD [facility] DR [place] [address] 01/30/2025 4:15 PM EDT Office Visit Hematology [place] [address] Arturo Cordero MD [facility] [address] [place] [address] documented as of this encounter Visit Diagnoses Diagnosis LLQ pain Abdominal pain, left lower quadrant Community acquired pneumonia, unspecified laterality Adrenal mass Unspecified disorder of adrenal glands Low back pain, non-specific documented in this encounter Care Teams Mandrel Puller Relationship Specialty Start Date End Date Luis E Narayan MD [facility] [address] [place] [address] PCP - General Family Medicine 01/20/22 07/17/22 documented as of this encounter
--- OUTSIDE RECORDS SUMMARY | 2024-04-15 15:52 | XMS_ITS | Encounter Summary ---
Author Organization [facility] Address [facility] [place] [address] Care Team Providers Care Product Communications Manager Name Role Phone Luis E Narayan MD Primary Care Provider [phone]- [phone] Reason for Visit * Reason Onset Date Comments Medication Refill 04/21/2022 Encounter Details Date Type Department Care Team (Late st Contact Info) Description 04/21/2022 Refill Family Medicine at [facility] [address] [place] [address] Earl Valdez MD [facility] [place] [address] Social History Tobacco Use Types Packs/Day Years [...] 05/01/2024 11:20 AM EDT Appointment Mammography/[place] [address] Rodney Padilla MD 05/01/2024 1:45 PM EDT Office Visit Ophthalmology at [place] [phone] Juanpablo Hernandez MD [facility] [place] [place] [address] 05/23/2024 2:45 PM EST Clinical Support Family Medicine at [facility] [address] [place] [address] Julia Low, [facility] 01/30/2025 1:30 PM EDT Laboratory Appointment Lab at [facility] Hematology Oncology [address] [place] [address] 01/30/2025 3:[address] Scan at [place] [phone] Arturo Cordero MD [facility] [place] [address] 01/30/2025 4:15 PM EDT Office Visit Hematology and Oncology at [place] [phone] Arturo Cordero MD [facility] [place] [address] documented as of this encounter Visit Diagnoses Not on filedocumented in this encounter Care Teams Product Communications Manager Relationship Specialty Start Date End Date Luis E Narayan MD [facility] DR LIL[place] [address] PCP - General Family Medicine 01/20/22 07/17/22 documented as of this encounter
--- OUTSIDE RECORDS SUMMARY | 2024-04-15 15:52 | XMS_ITS | Encounter Summary ---
Author Organization [facility] Address [facility] [place] [address] Care Team Providers Care Offset Printing Operator Name Role Phone Luis E Narayan MD Primary Care Provider [phone] Encounter Details Date Type Department Care Team [...] AM EDT Appointment Mammography/[place] [address] Rodney Padilla MD 05/01/2024 1:45 PM EDT [place] [address] Juanpablo Hernandez MD [facility] [place] [address] 05/23/2024 2:45 PM EST Clinical Support Family Medicine at [address] [phone] Julia Low, [facility] 01/30/2025 1:30 PM EDT Laboratory Appointment Lab at [facility] [place]ematology Oncology [address] [place] [address] 01/30/2025 3:[address] [place] [address] Arturo Cordero MD [facility] [place] [address] 01/30/2025 4:15 PM EDT Office Visit [place]ology [place] [address] Arturo Cordero MD [facility] [place] [address] documented as of this encounter Visit Diagnoses Not on filedocumented in this encounter Care Teams Offset Printing Operator Relationship Specialty Start Date End Date Luis E Narayan MD [facility] [address] [place] [address] PCP - General Family Medicine 01/20/22 07/17/22 documented as of this encounter
--- OUTSIDE RECORDS SUMMARY | 2024-04-15 15:52 | XMS_ITS | Encounter Summary ---
Author Organization [facility] Address [facility] [place] [address] Care Team Providers Care Occupational Therapy Asst Name Role Phone Luis E Narayan MD Primary Care Provider +1- [phone] Reason for Visit * Reason Comments Follow-up Encounter Details Date Type Department Care Team (Late st Contact Info) Description 04/12/2022 1:00 PM EDT Office Visit Family Medicine at [facility] [address] [place] [address] Suzanne Martinez APRN [facility] DR LILI [place] [address] Acute upper respiratory infection; Frequency of micturition; [...] emergency room visits near her home in [facility]. On 03/28, she wasprescribed Augmentin and doxycycline [...] Diagnosis Code ??? 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 Altered [...] 05/01/2024 11:20 AM EDT Appointment Mammography/[place] [address] Rodney Padilla MD 05/01/2024 1:45 PM EDT Office [place] [address] Juanpablo Hernandez MD [facility] [place] [address] 05/23/2024 2:45 PM EST Clinical Support Family Medicine at [facility] [address] [place] [address] Julia Low, [facility] 01/30/2025 1:30 PM EDT Laboratory Appointment Lab at [facility] [place]ology Oncology [address] [place] [address] 01/30/2025 3:[address] [place] [address] Arturo Cordero MD [facility] DR [place] [address] 01/30/2025 4:15 PM EDT Office Visit Hematology [place] [address] Arturo Cordero MD [facility] DR [place] [address] documented as of this encounter Procedures Procedure [...] Hemoglobin A1c 9.2(H) 4.3 - 5.6 % [facility] [...] 36: Suppl. 1, S67-74 Estimated Average Glucose 217 mg/dL [facility] Comment: eAG equivalents for [...] into estimated average glucose values. ??Diabetes Care 2008:31(8):6817-4313. Blood 04/12/2022 2:20 PM EDT 04/12/2022 4:10 PM EDT Narrative Resulting Agency Comment Spec In Lab Suzanne A Michelle BAE CHEMISTRY ORDERABL ES [facility] [place] [address] * (ABNORMAL) Comprehensive metabolic panel (non-fasting) (04/12/2022 2:20 PM EDT) Glucose 278(H) 65 - 199 mg/dL [facility] Comment:Diabetes: >=200 mg/d L plus symptoms Blood Urea Nitrogen 11 8 - 18 mg/dL [facility] Creatinine 0.96 0.70 - 1.20 mg/dL [facility] Sodium 138 135 - 145 mmol/L [facility] Potassium 4.5 3.5 - 5.0 mmol/L [facility] Comment: Please note: ??Patients with WBC >100,000 may have falsely elevated Potassium levels. ??For accurate Potassium quantification in these patients send serum separator tube (gold top) for subsequent determinations. ??Contact the Clinical Chemistry Laboratory if there are any questions. Chloride 99 98 - 107 mmol/L [facility] Carbon Dioxide 27 22 - 31 mmol/L [facility] Anion Gap 12 5 - 15 mmol/L [facility] Calcium 10.0 8.5 - 10.5 mg/dL [facility] Protein, Total 6.9 6.1 - 8.0 g/dL [facility] Albumin 4.1 3.2 - 5.2 g/dL [facility] Aspartate Aminotransferase 18 0 - 30 unit/L [facility] Alanine Aminotransferase 27 0 - 30 unit/L [facility] Alkaline Phosphatase 104 35 - 105 unit/L [facility] Bilirubin, Total 0.6 0.2 - 1.3 mg/dL [facility] Est Glomerular Filtration Rate 67 >=60 mL/min/1. 73 m?? [facility] [...] Lab Suzanne Martinez APRN CHEMISTRY ORDERABL ES [facility] [place] [address] * (ABNORMAL) POCT urine dipstick (04/12/2022 1:50 PM EDT) POC Sp Alvin 1.015 1.002 - 1.030 POC pH, UA [...] Glucose, Urine Dipstick >=1000(Criti mariann) Negative mg/dL [facility] Comment: Urinalysis result NOT critical without a combination of Glucose greater than or equal to 500 mg/dL AND Ketones greater than or equal to 80 mg/dL Protein, Urine Dipstick Negative Negative mg/dL [facility] Bilirubin, Urine Dipstick Negative Negative mg/dL [facility] Comment: Clinical correlation required for positive Urine Bilirubin results as false positive may occur with some drugs and drug related products. If a false positive is suspected a serum total bilirubin should be considered if clinically indicated. Urobilinogen, Urine Dipstick Normal Normal mg/dL [facility] pH, Urn (dipstick) 6.0 5.0 - 8.0 [facility] Blood, Urine Dipstick Negative Negative mg/dL [facility] Ketone, Urine Dipstick Negative Negative mg/dL [facility] Nitrite, Urine Dipstick Negative Negative [facility] Leukocytes, Urine Dipstick Negative Negative [facility] Appearance, Urine Dipstick Clear Clear [facility] Specific Alvin Urine Automated 1.024 1.005 - 1.030 [facility] Color, Urine Dipstick Yellow Yellow [facility] Reflex to Culture No [facility] Clean Catch Urine 04/12/2022 1:30 PM EDT 04/12/2022 6:54 PM EDT Narrative Resulting Agency Comment Spec In Lab Suzanne Martinez APRN URINE ORDERABLES Performing Organization Address City/State/[facility] Co de Phone Number [facility] [place] [address] documented in this encounter Visit Diagnoses Diagnosis Acute upper respiratory infection Acute upper respiratory infections of unspecified site Frequency of micturition Urinary frequency Lower abdominal pain Abdominal pain, other specified site Type 2 diabetes mellitus with hyperglycemia, without long-term current use of insulin Ear pain, bilateral Oral thrush Candidiasis of mouth Intertrigo Other specified erythematous condition documented in this encounter Care Teams Occupational Therapy Asst Relationship Specialty Start Date End Date Luis E Narayan MD [facility] DR [facility] [place] [phone] PCP - General Family Medicine 01/20/22 07/17/22 documented as of this encounter
--- OUTSIDE RECORDS SUMMARY | 2024-04-15 15:52 | XMS_ITS | Encounter Summary ---
Author Organization [facility] Address [facility] [place] [place] [address] Care Team Providers Care Member Of The Legislative Assembly Name Role Phone Luis E Narayan MD Primary Care Provider [phone]- [phone] Reason for Visit * Reason Comments Melanoma Encounter Details Date Type Department Care Team (Late st Contact Info) Description 06/01/2022 12:30 PM EST Office [place] [address] Juanpablo Hernandez MD [facility] [place] [address] Malignant melanoma of conjunctiva, left; Diabetic eye [...] 05/01/2024 11:20 AM EDT Appointment Mammography/[place] [address] Rodney Padilla MD 05/01/2024 1:45 PM EDT Office [place] [address] Juanpablo Hernandez MD [facility] [place] [address] 05/23/2024 2:45 PM EST Clinical Support Family Medicine at [facility] [address] [place] [address] Julia Low [facility] 01/30/2025 1:30 PM EDT Laboratory Appointment Lab at [facility] [place] On[place] [address] [place] [address] 01/30/2025 3:[address] [place] [address] Arturo Cordero MD [facility] [place] [address] 01/30/2025 4:15 PM EDT Office Visit Hematology [place] [address] Arturo Cordero MD [facility] [place] [address] documented as of this encounter Visit Diagnoses Diagnosis Malignant melanoma of conjunctiva, left Diabetic eye exam Examination of eyes and vision documented in this encounter Care Teams Member Of The Legislative Assembly Relationship Specialty Start Date End Date Luis E Narayan MD [facility] DR LIL[address] [place] [address] PCP - General Family Medicine 01/20/22 07/17/22 documented as of this encounter
--- OUTSIDE RECORDS SUMMARY | 2024-04-15 15:52 | XMS_ITS | Encounter Summary ---
Author Organization [facility]1983 Address [facility] [place] [address] Care Team Providers Care Gas Pumping Station Helper Name Role Phone Daryn Garrett MD Primary Care Provider Reason for Visit * Reason Onset Date Comments Medication Refill 03/25/2022 Encounter Details Date Type Department Care Team (Late st Contact Info) Description 03/25/2022 Refill Family Medicine at [facility] [address] [place] [address] Luis E Narayan MD [facility] DR LILI WALK[place] [address] Essential hypertension Social History Tobacco Use Types [...] AM EDT Appointment Mammography/[place] [address] Rodney Padilla MD 05/01/2024 1:45 PM EDT Office [place] [address] Juanpablo Hernandez MD [facility] [address] 05/23/2024 2:45 PM EST Clinical Support Family Medicine at [facility] [address] [place] [address] Julia Low RPH 01/30/2025 1:30 PM EDT Laboratory Appointment Lab at [facility] [place] [address] [place] [address] 01/30/2025 3:[address] [place] [address] Arturo Cordero MD [facility] [place]ATOLOGY [place] [address] 01/30/2025 4:15 PM EDT Office Visit Hematology [place] [address] Arturo Cordero MD [facility] [place]ATOLOGY [place] [address] documented as of this encounter Visit Diagnoses Diagnosis Essential hypertension Unspecified essential hypertension documented in this encounter Care Teams Gas Pumping Station Helper Relationship Specialty Start Date End Date Daryn Garrett MD [facility] [address] [place] [address] PCP - General 04/10/24 documented as of this encounter
--- OUTSIDE RECORDS SUMMARY | 2024-04-15 15:52 | XMS_ITS | Encounter Summary ---
[place] [address] Care Team Providers Care Collet Driller Name Role Phone Luis E Narayan MD Primary Care Provider +1- [phone] Reason for Visit * Reason Comments Genetic Evaluation * Consultation (Routine) - Closed Specialty Diagnoses / Procedures Referred By Gonzalez kumari Referred To Contact Hematology and Oncology Diagnoses History of malignant melanoma of eye Alonso Young MD [facility] [address] [place] [address] [facility] [place] [address] [place] [address] Referral ID Status Reason Start Date Expiration Date V isits Requested Visits Authorized [id number] Closed Consult, Test & Treat 02/14/2022 02/14/2023 1 1 Encounter Details Date Type Department Care Team (Late st Contact Info) Description 05/13/2022 12:00 PM EDT Office Visit Hematology [place] [address] Tito Matta V, [facility] Hematology/[place] [address] Malignant melanoma of conjunctiva, left; [...] who was initially diagnosed with kidney cancer [id number] and 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 In 03/2020 Alize met with her geophysics professor and was noted to have a pigmented [...] Aunt Unknown primary Maternal ethnic background is [place]. Paternal ethnic background is [place]. There is no known Ashkenazi Confucianist ancestry. Genetic risk assessment Based on personal [...] as well as other findings such as LOCKS INSPECTOR and ocular hemangioblastomas, paragangliomas/pheochromocytomas, pancreatic neuroendocrine tumors, [...] gene alteration. Alize opted for testing with [facility] Renal/Urinary Tract Cancers Panel, a next generation sequencing panel that simultaneously analyzes 25 genes, including BAP1 and VHL, that contribute to increased risk for cancer. Testing will reflex to [facility] Multi-Cancer Panel, an 84 gene panel (including the genes on the Renal/Urinary Tract Cancers Panel). Alize was consented. Her blood sample was drawn and sent to [facility]. We reviewed [facility] billing policy. Alize will be notified by text and/or email regarding her estimated out of pocket cost for testing once [facility] completes their benefits investigation. At thattime, if Alize is concerned about the estimated test cost she will have the option to contact [facility] directly and either apply for [facility] patient assistance program to try and reduce cost of testing based on income information, cancel testing, or switch to a self-pay option of $250. If Alize does not respond to [facility], testing will be billed to her insurance [...] 05/01/2024 11:20 AM EDT Appointment Mammography/[place] [address] Rodney Padilla MD 05/01/2024 1:45 PM EDT Office Visit Ophthalmology at [place] [phone] Juanpablo Hernandez MD [facility] [place] [place] [address] 05/23/2024 2:45 PM EST Clinical Support Family Medicine at [address] [address] Julia Low [facility] 01/30/2025 1:30 PM EDT Laboratory Appointment Lab at [facility] Hematology Oncology [address] [place] [address] 01/30/2025 3:[address] [place] [address] Arturo Cordero MD [facility] [place] [address] 01/30/2025 4:15 PM EDT Office Visit Hematology [place] [address] Arturo Cordero MD [facility] [place] [address] Scheduled Referrals Name Type Priority Associated Diagnoses Orde r Schedule Referral to Genetics Outpatient Referral Routine History of malignant melanoma of eye Ordered: 02/14/2022 documented as of this encounter Visit Diagnoses Diagnosis Malignant melanoma of conjunctiva, left Malignant neoplasm of left kidney Family history of kidney cancer Family history of malignant neoplasm of kidney documented in this encounter Care Teams Collet Driller Relationship Specialty Start Date End Date Luis E Narayan MD [facility] DR LILI WALKER-FAMILY [place] [phone] PCP - General Family Medicine 01/20/22 07/17/22 documented as of this encounter
--- OUTSIDE RECORDS SUMMARY | 2024-04-15 15:52 | XMS_ITS | Encounter Summary ---
Author Organization [facility] Address [facility] [place] [address] Care Team Providers Care Tubular Stock Glass Bulb Machine Former Name Role Phone Daryn Garrett MD Primary Care Provider Reason for Visit * Reason Onset Date Comments Medication Refill 03/25/2022 Encounter Details Date Type Department Care Team (Late st Contact Info) Description 03/25/2022 Refill Family Medicine at [facility] [address] [place] [address] Cuate Solis PA [facility] DR LILI WALKER[place] [address] Social History Tobacco Use Types Packs/Day Years [...] 05/01/2024 11:20 AM EDT Appointment Mammography/[place] [address] Rodney Padilla MD 05/01/2024 1:45 PM EDT Office [place] [address] Juanpablo Hernandez MD [facility] [place] [address] 05/23/2024 2:45 PM EST Clinical Support Family Medicine at [facility] [address] [place] [address] Julia Low [facility] 01/30/2025 1:30 PM EDT Laboratory Appointment Lab at [facility] [place] [address] [place] [address] 01/30/2025 3:[address] [place] [address] Arturo Cordero MD [facility] HEMATOLOGY [place] [address] 01/30/2025 4:15 PM EDT Office Visit Hematology [place] [address] Arturo Cordero MD [facility] HEMATOLOGY [place] [address] documented as of this encounter Visit Diagnoses Not on filedocumented in this encounter Care Teams Tubular Stock Glass Bulb Machine Former Relationship Specialty Start Date End Date Daryn Garrett MD [facility] DR LILI W[place]ER [place] [address] PCP - General 04/10/24 documented as of this encounter
--- OUTSIDE RECORDS SUMMARY | 2024-04-15 15:52 | XMS_ITS | Encounter Summary ---
Author Organization [facility] Address [facility] [place] [address] Care Team Providers Care Mammal Keeper Name Role Phone Luis E Narayan MD Primary Care Provider +1- [phone] Reason for Visit * Reason Comments Follow-up f/u from hospital vi sit Encounter Details Date Type Department Care Team (Late st Contact Info) Description 04/05/2022 11:30 AM EDT Office Visit Family Medicine at [facility] [address] [place] [address] Earl Valdez MD [facility] [address] [place] [address] Frequency of micturition; COPD; Yeast vaginitis Social [...] emergency room visits near her home in [facility]. On 03/28, she was prescribed Augmentin and [...] Diagnosis Code ??? 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 Altered [...] each, Rfl: 11 ??? FreeStyle Sanjana 2 [place] Misc, 1 each by Other route daily. [...] 11 ??? fluticasone propionate (Flonase) 50 mcg/actuation [place], Suspension, 1 spray by Each Nare route2 [...] will send a prescription for this to [facility] in [place]. She will continue on these current medications [...] a total of at least 30 minutes (17817) providing this patient's care. This includes time spent [id number] with the patient performing evaluation, examination, and counseling . It also includes non [id number]-[id number] time preparing to see the patient, coordinating care, and documenting clinical information in the electronic health record. documented in this encounter Plan of Treatment Upcoming Encounters Date Type Department Care Team (Late st Contact Info) Description 05/01/2024 11:20 AM EDT Appointment Mammography/[place] [phone] Rodney Padilla MD 05/01/2024 1:45 PM EDT Office [place] [address] Juanpablo Hernandez MD [facility] [place] [address] 05/23/2024 2:45 PM EST Clinical Support Family Medicine at [facility] [address] [place] [address] Julia Low, [facility] 01/30/2025 1:30 PM EDT Laboratory Appointment Lab at [facility] Hematology Oncology [address] [place] [address] 01/30/2025 3:[address] [place] [phone] Arturo Cordero MD [facility] DR [place] [address] 01/30/2025 4:15 PM EDT Office Visit Hematology [place] [phone] Arturo Cordero MD [facility] DR [place] [address] documented as of this encounter Procedures Procedure [...] coli 1,000-9,000 cfu/ml mixed mucosal nimisha (A) [facility] Organism Escherichia coli(A) [facility] Urine NS 04/05/2022 12:4 1 [...] Valdez MD MICROBIOLOGY - GENER AL ORDERABLES [facility] [place] [address] * (ABNORMAL) Urinalysis Microscopic Exam (04/05/2022 12:41 PM EDT) RBC, Urine 3 0 - 4 /HPF [facility] WBC, Urine 10(H) 0 - 5 /HPF [facility] Bacteria, Urine Rare(A) None /HPF [facility] Squamous Epithelial Cells Raw Data, Urine 2 <=4 /HPF [facility] Urine NS 04/05/2022 12:4 1 PM EDT 04/05/2022 4:36 PM EDT Narrative Resulting Agency Comment Spec In Lab Earl Valdez MD URINE ORDERABLES Performing Organization Address City/[facility]/ZIP Co de Phone Number [facility] [place] [address] * (ABNORMAL) Urinalysis with reflex Culture (04/05/2022 12:41 PM EDT) Glucose, Urine Dipstick 100(A) Negative mg/dL [facility] Protein, Urine Dipstick Negative Negative mg/dL [facility] Bilirubin, Urine Dipstick Negative Negative mg/dL [facility] Comment: Clinical correlation required for positive Urine Bilirubin results as false positive may occur with some drugs and drug related products. If a false positive is suspected a serum total bilirubin should be considered if clinically indicated. Urobilinogen, Urine Dipstick Normal Normal mg/dL [facility] pH, Urn (dipstick) 5.5 5.0 - 8.0 [facility] Blood, Urine Dipstick Negative Negative mg/dL [facility] Ketone, Urine Dipstick Negative Negative mg/dL [facility] Nitrite, Urine Dipstick Negative Negative [facility] Leukocytes, Urine Dipstick Moderate(A) Negative [facility] Appearance, Urine Dipstick Clear Clear [facility] Specific [place] Urine Automated 1.011 1.005 - 1.030 [facility] Color, Urine Dipstick Yellow Yellow [facility] Reflex to Culture Yes [facility] Urine NS 04/05/2022 12:4 1 PM EDT 04/05/2022 4:36 PM EDT Narrative Resulting Agency Comment Spec In Lab Earl Valdez MD URINE ORDERABLES Performing Organization Address [facility]/State/ZIP Co de Phone Number [facility] [place] [address] documented in this encounter Visit Diagnoses Diagnosis Frequency of micturition Urinary frequency COPD Simple chronic bronchitis Yeast vaginitis Candidiasis of vulva and vagina documented in this encounter Care Teams Mammal Keeper Relationship Specialty Start Date End Date Luis E Narayan MD [facility] DR LILI WALKER-FAMILY [place] [id number] PCP - General Family Medicine 01/20/22 07/17/22 documented as of this encounter
--- OUTSIDE RECORDS SUMMARY | 2024-04-15 15:52 | XMS_ITS | Encounter Summary ---
Author Organization [facility] [place] [address] Care Team Providers Care First Responder Name Role Phone Luis E Narayan MD Primary Care Provider +1- [phone] Reason for Visit * Reason Onset Date Comments Results 05/30/2022 Encounter Details Date Type Department Care Team (Late st Contact Info) Description 05/30/2022 Telephone Hematology [place] [address] Tito Matta [facility] Hematology/[place] [address] Results Social History Tobacco Use Types Packs/Day [...] about these matters. Our phone number is: [phone]. On 05/13/2022 Alize was seen for genetic [...] CDH1, CDK4, CDKN1B, CDKN1C, CDKN2A (p14ARF), CDKN2A ([id number]), CEBPA, CHEK2, CTNNA1, DICER1, DIS3L2, EGFR, EPCAM (Chris tion/duplication testing only), FH, FLCN, GATA2, GPC3, GREM1 (Promoter region deletion/duplication testing only), HOXB13, HRAS, KIT, MAX, MEN1, MET, MITF, (c.952G>A,P.Xyn683Ldv variant only), MLH1, MSH2, MSH3, MSH6, MUTYH, NBN, NF1, NF2, NTHL1, PALB2, PDGFRA, PHOX2B, PMS2, POLD1, POLE, POT1, FWIVK9H, PTCH1, PTEN, RAD50, RAD51C, RAD51D, RB1, RECQL4, REST, RET, RUNX1, SDHA, SDHAF2, SDHB, SDHC, SDHD, SMAD4, SMARCA4, SMARCB1, SMARCE1, STK11, SUFU, TERC, TERT, UEEO747, TP53, TSC1, TSC2, VHL, WRN,and WT1. Interpretation: [...] and/or Pap smears as recommended by Alize's sole splitter or primary care provider. Colon cancer screening ?? Routine colorectal cancer screening starting by age 45-50 is important for everyone, regardless of genetic predisposition. ?? Periodic colonoscopy screening as recommended by Alize's director of acquisition marketing. Skin cancer screening ?? Skin cancer screening and sun protection are important for everyone, regardless of genetic predisposition. ?? Consideration of routine dermatologic/skin exams, as recommended by Alize's primary care provider or milk hauler. documented in this encounter Plan of Treatment Upcoming Encounters Date Type Department Care Team (Late st Contact Info) Description 05/01/2024 11:20 AM EDT Appointment Mammography/[place] [phone] Rodney Padilla MD 05/01/2024 1:45 PM EDT Office [place] [phone] Juanpablo Hernandez MD [facility] [place] [address] 05/23/2024 2:45 PM EST Clinical Support Family Medicine at [address] [address] Julia Low, [facility] 01/30/2025 1:30 PM EDT Laboratory Appointment Lab at [facility] Hematology Oncology [address] [place] [address] 01/30/2025 3:[address] [place] [address] Arturo Cordero MD [facility] DR HEMATOLOGY [place] [address] 01/30/2025 4:15 PM EDT Office Visit Hematology [place] [address] Arturo Cordero MD [facility] HEMATOLOGY [place] [address] documented as of this encounter Visit Diagnoses Not on filedocumented in this encounter Care Teams First Responder Relationship Specialty Start Date End Date Luis E Narayan MD [facility] [address]-[place] [address] PCP - General Family Medicine 01/20/22 07/17/22 documented as of this encounter
--- OUTSIDE RECORDS SUMMARY | 2024-04-15 15:52 | XMS_ITS | Encounter Summary ---
Author Organization [facility] [place] [address] Care Team Providers Care Supervisor Alteration Workroom Name Role Phone Luis E Narayan MD Primary Care Provider +1- [phone] Encounter Details Date Type Department Care Team (Late st Contact Info) Description 05/13/2022 Orders Only [place] [address] Alejandra Pop, CREAM DUMPER [address] [place] [address] Social History Tobacco Use Types Packs/Day Years [...] 05/01/2024 11:20 AM EDT Appointment Mammography/[place] [address] Rodney Padilla MD 05/01/2024 1:45 PM EDT Office [place] [phone] Juanpablo Hernandez MD [facility] [place] [address] 05/23/2024 2:45 PM EST Clinical Support Family Medicine at [facility] [address] [place] [address] Julia Low Bacilio 01/30/2025 1:30 PM EDT Laboratory Appointment Lab at [facility] Hematology Oncology [address] [place] [address] 01/30/2025 3:[address] [place] [address] Arturo Cordero MD [facility] HEMATOLOGY [place] [address] 01/30/2025 4:15 PM EDT Office Visit Hematology [place] [address] Arturo Cordero MD [facility] HEMATOLOGY [place] [address] documented as of this encounter Visit Diagnoses Not on filedocumented in this encounter Care Teams Supervisor Alteration Workroom Relationship Specialty Start Date End Date Luis E Narayan MD [facility] [address] [place] [address] PCP - General Family Medicine 01/20/22 07/17/22 documented as of this encounter
--- OUTSIDE RECORDS SUMMARY | 2024-04-15 15:52 | XMS_ITS | Encounter Summary ---
Author Organization [facility] Address [facility] [place] [address] Care Team Providers Care Graphic Editor Name Role Phone Luis E Narayan MD Primary Care Provider +1- [phone] Reason for Visit * Reason Onset Date Comments Medication Refill 04/14/2022 Encounter Details Date Type Department Care Team (Late st Contact Info) Description 04/14/2022 Refill Family Medicine at [facility] [address] [place] [address] Cuate Solis PA [facility] DR LIL[address] WALKER-[place] [address] Social History Tobacco Use Types [...] 05/01/2024 11:20 AM EDT Appointment Mammography/[place] [address] Rodney Padilla MD 05/01/2024 1:45 PM EDT Office [place] [address] Juanpablo Hernandez MD [facility] [place] [address] 05/23/2024 2:45 PM EST Clinical Support Family Medicine at [facility] [address] [place] [phone] Julia Low, [facility] 01/30/2025 1:30 PM EDT Laboratory Appointment Lab at [facility] Hematology Oncology [address] [place] [address] 01/30/2025 3:[address] [place] [address] Arturo Cordero MD [facility] HEMATOLOGY [place] [address] 01/30/2025 4:15 PM EDT Office Visit Hematology [place] [address] Arturo Cordero MD [facility] HEMATOLOGY AND ONCOLOGY [place], [place] [phone] documented as of this encounter Visit Diagnoses Not on filedocumented in this encounter Care Teams Graphic Editor Relationship Specialty Start Date End Date Luis E Narayan MD [facility] [address] [place] [address] PCP - General Family Medicine 01/20/22 07/17/22 documented as of this encounter
--- OUTSIDE RECORDS SUMMARY | 2024-04-15 15:53 | XMS_ITS | Encounter Summary ---
Author Organization [facility] Address [facility] [place] [address] Care Team Providers Care Gas Systems Worker Name Role Phone Luis E Narayan MD Primary Care Provider +1- [phone] Reason for Visit * Reason Comments Diabetes Encounter Details Date Type Department Care Team (Late st Contact Info) Description 10/26/2021 10:00 AM EDT Clinical Support Family Medicine at [facility] [address] [place] [address] Julia Lwo, [facility] Type 2 [...] 1-2x daily\ ?? Sent new Rxs for Telkonete CGM to review coverage Follow up plan: ?? Followup call in 2-4 weeks to review tolerance of Rybelsus, CGM coverage,SMBG/CGM data, and encourage lifestyle changes Subjective: Patient ID: Alize Gramajo is a 60 y.o. 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 Lunch: Alvo with ham/turkey, Northern Irish cheese, crisostomo, mustard with Doritos Dinner: Spaghetti [...] area transportation options [] Languages other than Beninese: Cocktail Waitress services provided No [] Allowances for cultural diversity: meal plan will be tailored for cultural food shavon [] Hearing: Fuel Pilot Engineer provided No [] Vision impaired: print augmentation [...] 5 ??? fluticasone propionate (Flonase) 50 mcg/actuation [place], Suspension 1 spray by Each Nare route [...] 30 tablet 3 ??? FreeStyle Sanjana 2 [place] Misc 1 each by Other route daily. [...] 09/07/2005 TDAP 04/09/2019 , 06/24/2011 Prescription Insurance: [facility] [id number] Assessment and Recommendations: 1. Diabetes Goals of [...] for the individual, but in general the [place] [employer] recommends a fasting blood sugar [...] 1-2x daily\ ?? Sent new Rxs for Skipola CGM to review coverage Follow up plan: [...] and that [facility] is providing recommendations (summary located at top of note) for provider review and follow up. Julia Low RPH 10/26/21 documented in this encounter Plan of Treatment Upcoming Encounters Date Type Department Care Team (Late st Contact Info) Description 05/01/2024 11:20 AM EDT Appointment Mammography/[place] [address] Rodney Padilla MD 05/01/2024 1:45 PM EDT Office [place] [address] Juanpablo Hernandez MD [facility] [place] [address] 05/23/2024 2:45 PM EST Clinical Support Family Medicine at [facility] [address] [place] [address] Devante Julia Prabhu, [facility] 01/30/2025 1:30 PM EDT Laboratory Appointment Lab at [facility] Hematology Oncology [address] [place] [address] 01/30/2025 3:[address] [place] [address] Arturo Cordero MD [facility] HEMATOLOGY [place] [address] 01/30/2025 4:15 PM EDT Office Visit Hematology [place] [address] Arturo Cordero MD [facility] HEMATOLOGY [place] [address] documented as of this encounter Procedures Procedure [...] Primary documented in this encounter Care Teams Gas Systems Worker Relationship Specialty Start Date End Date Luis E Narayan MD [facility] [address] [place] [address] PCP - General Family Medicine 03/26/19 01/19/22 documented as of this encounter
--- OUTSIDE RECORDS SUMMARY | 2024-04-15 15:53 | XMS_ITS | Encounter Summary ---
Author Organization [facility] [place] [address] Care Team Providers Care Ab Initio Etl Developer Name Role Phone Luis E Narayan MD Primary Care Provider +1- [phone] Encounter Details Date Type Department Care Team (Latest Contact Info) Description 12/23/2021 12:35 PM EDT - 12/23/2021 11:59 PM EDT Hospital Encounter Hematology [place] [address] Malignant melanoma of conjunctiva, left Discharge Disposition: [...] 1 each 12/10/2021 02/04/2023 FreeStyle Sanjana 2 [place] MiscIndications:diabetes mellitus 1 each by Other route [...] 10/01/2021 01/29/2022 fluticasone propionate (Flonase) 50 mcg/actuation [place], Suspension 1 spray by Each Nare route [...] 05/01/2024 11:20 AM EDT Appointment Mammography/[place] [address] Rodney Padilla MD 05/01/2024 1:45 PM EDT Office [place] [address] Juanpablo Hernandez MD [facility] [place] [address] 05/23/2024 2:45 PM EST Clinical Support Family Medicine at [facility] [address] [place] [address] Julia Low [facility] 01/30/2025 1:30 PM EDT Laboratory Appointment Lab at [facility] Hematology Oncology [address] [place] [id number] 01/30/2025 3:[address] [place] [address] Arturo Cordero MD [facility] [place] [address] 01/30/2025 4:15 PM EDT Office Visit Hematology and Oncology at [facility] [place] [address] Arturo Cordero MD [facility] [place] [address] documented as of this encounter Procedures Procedure [...] 12:45 PM EDT) Neutrophil % 62.7 % [facility] Neutrophil Absolute 4.80 1.70 - 6.10 x10(3)/[facility] Lymph % 27.4 % [facility] Lymphocytes Abs 2.1 0.9 - 3.2 x10(3)/[facility] Monocyte % 6.9 % [facility] Monocyte Abs 0.5 0.3 - 0.9 x10(3)/[facility] Eos % 1.7 % [facility] Eosinophils Abs 0.1 0.0 - 0.4 x10(3)/[facility] Basophil % 0.8 % [facility] Baso Absolute 0.1 0.0 - 0.1 x10(3)/[facility] Immature Gran % 0.50 % [facility] Comment: Immature granulocytes(IG's)percentage and absolute count will include metamyelocytes, myelocytes, and promyelocytes. Blood smears from CBCs yielding IG's will be scanned manually for concordance. If this scan disagrees with the automated IG or if promyelocytes are noted, a manual differential will be performed. Immature Gran Absolute 0.04 0.00 - 0.04 x10(3)/[facility] Blood 12/23/2021 12:4 5 PM EDT 12/23/2021 1:04 PM EDT Narrative Resulting Agency Comment Spec In Lab Leandra Lopes APRN HEMATOLOGY ORDERAB LES Performing Organization Address City/State/[facility] Co de Phone Number [facility] [place] [address] * (ABNORMAL) Hemogram (12/23/2021 12:45 PM EDT) White Blood Cell 7.7 4.0 - 9.5 x10(3)/ L [facility] Red Blood Cell 4.53 4.00 - 5.21 x10(6)/ L [facility] Hemoglobin 12.9 [...] HOSPITAL LABORATORY Platelet 387(H) 145 - 357 x10(3)/ L [facility] RDW Standard Deviation 46.8(H) 37.0 - 46.[address] [facility] RDW coefficient of variation 14.5(H) 11.5 - 14.1 % [facility] Mean Platelet Volume 9.6 7.6 - 12.[address] [facility] NRBC% auto 0.0 % [facility] NRBC Absolute 0.000 0.000 - 0.000 x10(3)/mc L [facility] Blood 12/23/2021 12:4 5 PM EDT 12/23/2021 1:04 PM EDT Narrative Resulting Agency Comment Spec In Lab Leandra Lopes APRN HEMATOLOGY ORDERAB LES Performing Organization Address [facility] Co de Phone Number [facility] [place] [address] * Lactate Dehydrogenase (12/23/2021 12:45 PM EDT) Lactate Dehydrogenase 219 110 - 220 unit/L [facility] Blood 12/23/2021 12:4 5 PM EDT 12/23/2021 1:04 PM EDT Narrative Resulting Agency Comment Spec In Lab Leandra Lopes APRN CHEMISTRY ORDERABL ES Performing Organization Address [facility] Co de Phone Number [facility] [place] [address] * (ABNORMAL) Comprehensive metabolic panel (non-fasting) (12/23/2021 [...] CHEMISTRY ORDERABL ES [facility] [place] [address] documented in this encounter Visit Diagnoses Diagnosis Malignant melanoma of conjunctiva, left documented in this encounter Care Teams Ab Initio Etl Developer Relationship Specialty Start Date End Date Luis E Narayan MD [facility] DR [place] [address] PCP - General Family Medicine 03/26/19 01/19/22 documented as of this encounter
--- OUTSIDE RECORDS SUMMARY | 2024-04-15 15:53 | XMS_ITS | Encounter Summary ---
Author Organization [facility] Address [facility] [place] [address] Care Team Providers Care Rfid Developer Name Role Phone Luis E Narayan MD Primary Care Provider [phone] Reason for Visit * Reason Comments Diabetes Encounter Details Date Type Department Care Team (Late st Contact Info) Description 09/09/2021 2:00 PM EST TH Visit (TeleHealth) Family Medicine at [facility] [address] [place] [address] Julia Low, [facility] Type [...] antithrombotic long-term use, Arthritis, Asthma, 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 Also Spoke to pharmacist [...] 149 Highest 188 Daily Avg 168 eA1c 8.119006 Prior Averages: 08/26/21 AM Average 157 Lowest 134 Highest 182 Daily Avg 157 eA1c 8.005171 Acute Complications Have you ever had a [...] enough to eat eggs every day. Lunch: [place] with ham/turkey, [place] cheese, crisostomo, mustard with Doritos Dinner: Spaghetti [...] area transportation options [] Languages other than Bahamian: Process Worker services provided No [] Allowances for cultural diversity: meal plan will be tailored for cultural food shavon [] Hearing: Static Balancer provided No [] Vision impaired: print augmentation [...] 30 tablet 3 ??? FreeStyle Sanjana 2 [place] Misc 1 each by Other route daily. [...] 0 ??? fluticasone propionate (FLONASE) 50 mcg/actuation [place], Suspension 1 spray by Each Nare route [...] 09/07/2005 TDAP 04/09/2019 , 06/24/2011 Prescription Insurance: [facility] [id number] Assessment and Recommendations: 1. Diabetes Goals of [...] now sortedout and shoul calin vazquez to car pick up driver Ozempic to start tomorrow o Denies s/sx [...] for the individual, but in general the [place] Diabetes Association recommends a fasting blood sugar [...] at the appointment and that [facility] is providing recommendations (summary located at top of note) for provider review and follow up. Julia Low RPH 09/09/21 documented in this encounter Plan of Treatment Upcoming Encounters Date Type Department Care Team (Late st Contact Info) Description 05/01/2024 11:20 AM EDT Appointment Mammography/[place] [phone] Rodney Padilla MD 05/01/2024 1:45 PM EDT Office Visit Ophthalmology at [place] [phone] Juanpablo Hernandez MD [facility] [place] [address] 05/23/2024 2:45 PM EST Clinical Support Family Medicine at [address] [address] Julia Low RPH 01/30/2025 1:30 PM EDT Laboratory Appointment Lab at [facility] Hematology Oncology [address] [place] [address] 01/30/2025 3:[address] [place] [address] Arturo Cordero MD [facility] [address] [place] [address] 01/30/2025 4:15 PM EDT Office Visit Hematology [place] [address] Arturo Cordero MD [facility] [address] [place] [address] documented as of this encounter Visit Diagnoses Diagnosis Type 2 diabetes mellitus without long-term current use of insulin documented in this encounter Care Teams Rfid Developer Relationship Specialty Start Date End Date Luis E Narayan MD [facility] [address] [place] [address] PCP - General Family Medicine 03/26/19 01/19/22 documented as of this encounter
--- OUTSIDE RECORDS SUMMARY | 2024-04-15 15:53 | XMS_ITS | Encounter Summary ---
Author Organization [facility] Address [facility] [place] [address] Care Team Providers Care Drawer In Name Role Phone Luis E Narayan MD Primary Care Provider [phone] Reason for Visit * Reason Comments Melanoma OS Encounter Details Date Type Department Care Team (Late st Contact Info) Description 02/04/2022 3:30 PM EDT Office Visit [place] [address] Juanpablo Hernandez MD [facility] [place] [place] [address] Malignant melanoma of conjunctiva, left Social History [...] 05/01/2024 11:20 AM EDT Appointment Mammography/[place] [phone] Rodney Padilla MD 05/01/2024 1:45 PM EDT Office Visit [place] [phone] Juanpablo Hernandez MD [facility] [place] [address] 05/23/2024 2:45 PM EST Clinical Support Family Medicine at [facility] [address] [place] [address] Julia Low [facility] 01/30/2025 1:30 PM EDT Laboratory Appointment Lab at [facility] Hematology Oncology [address] [place] [address] 01/30/2025 3:[address] [place] [address] Arturo Cordero MD [facility] [place] [address] 01/30/2025 4:15 PM EDT Office Visit Hematology [place] [phone] Arturo Cordero MD [facility] [place] [address] documented as of this encounter Visit Diagnoses Diagnosis Malignant melanoma of conjunctiva, left documented in this encounter Care Teams Drawer In Relationship Specialty Start Date End Date Luis E Narayan MD [facility] [address] [place] [address] PCP - General Family Medicine 01/20/22 07/17/22 documented as of this encounter
--- OUTSIDE RECORDS SUMMARY | 2024-04-15 15:53 | XMS_ITS | Encounter Summary ---
Author Organization [facility] [place] [address] Care Team Providers Care Tire Beader Maker Name Role Phone Luis E Narayan MD Primary Care Provider Reason for Referral * Diagnostic Test (Routine) - Closed Specialty Diagnoses / Procedures Referred By Contac t Referred To Contact Radiology Diagnoses Malignant melanoma of conjunctiva, left Malignant melanoma, unspecified site Procedures CT Neck Soft Tissue w Contrast (Generic) Leandra Lopes APRN [facility] [address] [place] [address] [facility] [place] [address] Referral ID Status Reason Start Date Expiration Date V isits Requested Visits Authorized [id number] Closed Specialty Service Requested 12/23/2021 07/09/2022 1 1 * Diagnostic Test (Routine) - Closed Specialty Diagnoses / Procedures Referred By Contac t Referred To Contact Radiology Diagnoses Malignant melanoma of conjunctiva, left Malignant melanoma, unspecified site Procedures CT Chest Abdomen Pelvis w Contrast (Generic) Leandra Lopes APRN [facility] [address] [place] [address] [facility] [place] [address] Referral ID Status Reason Start Date Expiration Date V isits Requested Visits Authorized [id number] Closed Specialty Service Requested 12/23/2021 07/09/2022 1 1 Reason for Visit * Diagnostic Test (Routine) - Closed Specialty Diagnoses / Procedures Referred By Contchrissy t Referred To Contact Radiology Diagnoses Malignant melanoma of conjunctiva, left Malignant melanoma, unspecified site Procedures CT Chest Abdomen Pelvis w Contrast (Generic) Leandra Lopes APRN [facility] [address] [place] [address] [facility] [place] [address] Referral ID Status Reason Start Date Expiration Date V isits Requested Visits Authorized [id number] Closed Specialty Service Requested 12/23/2021 07/09/2022 1 1 Encounter Details Date Type Department Care Team (Late st Contact Info) Description 12/23/2021 12:07 PM EDT - 12/23/2021 12:34 PM EDT Hospital [place] [address] Leandra Lopes APRN [facility] DR [place] [address] Malignant melanoma of conjunctiva, left; [...] each 11 12/10/2021 02/04/2023 FreeStyle Sanjana 2 Rozet MiscIndications:diabetes mellitus 1 each by Other route [...] 10/01/2021 01/29/2022 fluticasone propionate (Flonase) 50 mcg/actuation [place], Suspension 1 spray by Each Nare route [...] 05/01/2024 11:20 AM EDT Appointment Mammography/[place] [address] Rodney Padilla MD 05/01/2024 1:45 PM EDT Office [place] [address] Juanpablo Hernandez MD [facility] [place] [address] 05/23/2024 2:45 PM EST Clinical Support Family Medicine at [facility] [address] [place] [address] Julia Low, [facility] 01/30/2025 1:30 PM EDT Laboratory Appointment Lab at [facility] Hematology Oncology [address] [place] [address] 01/30/2025 3:[address] [place] [phone] Arturo Cordero MD [facility] [place] [address] 01/30/2025 4:15 PM EDT Office Visit Hematology [place] [phone] Arturo Cordero MD [facility] [place] [address] documented as of this encounter Procedures Procedure [...] who have questions please contact the health gericare aide teacher that requested your imaging first. ? Electronically signed by: Davin Corbett MD, [facility] ([phone]), at 12/24/2021 8:15 AM Narrative 12/24/2021 8:15 [...] patients who have questions please contactthe health gericare aide teacher that requested your imaging first. Electronically signed by: Davin Corbett MD, [facility]([phone]), at 12/24/2021 8:15 AM Leandra Tran Marianne BAE G CT ORDERABLES * CT Chest Abdomen Pelvis [...] who have questions please contact the health gericare aide teacher that requested your imaging first. ? [...] patients who have questions please contactthe health gericare aide teacher that requested your imaging first. Leandra Lopes APRN [facility] ORDERABLES documented in this encounter Visit [...] mLs documented in this encounter Care Teams Tire Beader Maker Relationship Specialty Start Date End Date Luis E Narayan MD [facility] [address] [place] [address] PCP - General Family Medicine 03/26/19 01/19/22 documented as of this encounter
--- OUTSIDE RECORDS SUMMARY | 2024-04-15 15:53 | XMS_ITS | Encounter Summary ---
Author Organization [facility] [place] [address] Care Team Providers Care Bag Checker Name Role Phone Luis E Narayan MD Primary Care Provider [phone] Reason for Visit * Reason Onset Date Comments Medication Refill 12/10/2021 Encounter Details Date Type Department Care Team (Late st Contact Info) Description 12/10/2021 Refill Family Medicine at [facility] [address] [place] [address] Bereket Latham PA [facility] [place] [address] Essential hypertension Social History Tobacco Use Types [...] 05/01/2024 11:20 AM EDT Appointment Mammography/[place] [address] Rodney Padilla MD 05/01/2024 1:45 PM EDT Office Visit [place] [address] Juanpablo Hernandez MD [facility] [place] [address] 05/23/2024 2:45 PM EST Clinical Support Family Medicine at [facility] [address] [place] [address] Julia Lwo [facility] 01/30/2025 1:30 PM EDT Laboratory Appointment Lab at [facility] [place] [address] [place] [address] 01/30/2025 3:[address] [place] [address] Arturo Cordero MD [facility] [place] [address] 01/30/2025 4:15 PM EDT Office Visit Hematology [place] [address] Arturo Cordero MD [facility] [place] [address] documented as of this encounter Visit Diagnoses Diagnosis Essential hypertension Unspecified essential hypertension documented in this encounter Care Teams Bag Checker Relationship Specialty Start Date End Date Luis E Narayan MD [facility] [address] [place] [address] PCP - General Family Medicine 03/26/19 01/19/22 documented as of this encounter
--- OUTSIDE RECORDS SUMMARY | 2024-04-15 15:53 | XMS_ITS | Encounter Summary ---
[place] [address] Care Team Providers Care Glass Embosser Name Role Phone Luis E Narayan MD Primary Care Provider Reason for Referral * Diagnostic Test (Routine) - Closed Specialty Diagnoses / Procedures Referred By Contac t Referred To Contact Radiology Diagnoses Malignant melanoma of conjunctiva, left Procedures CT Chest Abdomen Pelvis w Contrast (Generic) Leandra Black APRN [facility] DR HEMATOLOGY [place] [address] [facility] [place] [address] Referral ID Status Reason Start Date Expiration Date V isits Requested Visits Authorized [id number] Closed Specialty Service Requested 12/24/2021 06/25/2023 1 1 * Diagnostic Test (Routine) - Closed Specialty Diagnoses / Procedures Referred By Contac t Referred To Contact Radiology Diagnoses Malignant melanoma of conjunctiva, left Procedures CT Neck Soft Tissue w Contrast (Generic) Leandra Black APRN [facility] DR HEMATOLOGY [place] [address] [facility] [place] [address] Referral ID Status Reason Start Date Expiration Date V isits Requested Visits Authorized [id number] Closed Specialty Service Requested 12/24/2021 06/25/2023 1 1 Reason for Visit * Reason Comments Follow-up Encounter Details Date Type Department Care Team (Late st Contact Info) Description 12/23/2021 3:15 PM EDT Office Visit Hematology [place] [address] Arturo Cordero MD [facility] DR HEMATOLOGY [place] [address] Leandra Black APRN [facility] DR HEMATOLOGY [place] [address] Malignant melanoma of conjunctiva, left; History of [...] from the original note were not included. [facility] FOLLOW UP NOTE REFERING PHYSICIAN: Dr. [...] management - fall 2018: saw a new exhibitions curator and was referred to Dr. 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 Medina - 03/31/2020: saw her exhibitions curator Dr. Hernandez and was noted to have [...] uses inhalerswith good effect ??? Atherosclerosis of [place] coronary artery of [place] heart with angina pectoris 10/09/2007 History of [...] 3.47) performed by Juanpablo Hernandez MD at [facility] O[facility] ??? PRO EXCIS CORNEA LESN Left 05/14/2020 EXCISION OF LESION, CORNEA, EXCEPT PTERYGIUM (WRVU 7.5) performed by Juanpablo Hernandez MD at [facility] ??? PRO LAP, PARTIAL NEPHRECTOMY Left 06/28/2019 LAPAROSCOPY, PARTIAL NEPHRECTOMY, ROBOTIC ASSIST (WRVU 27.41) performed by Avila Meidna MD at [facility] MAIN OR ??? 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 o Sun Exposure: Use broad spectrum, 30 SPF or higher, water resistant sunscreen with reapplication every 2 hours OR SPF clothing and limit your amount of direct sun exposure when possible. o Regular skin and lymph node self-examination should be performed. Please report any new lesions, lumps or bumps of concern to your casing mixer or oncology team. ? You should be [...] new symptoms or concerns. Leandra Black DNP, POLICE MANAGER Return in 3 mos for stand alone US RTC in 6 mos with labs, clinic appointment and CT scan documented in this encounter Plan of Treatment Upcoming Encounters Date Type Department Care Team (Late st Contact Info) Description 05/01/2024 11:20 AM EDT Appointment Mammography/[place] [address] Rodney Padilla MD 05/01/2024 1:45 PM EDT Office [place] [address] Juanpablo Hernandez MD [facility] [place] [address] 05/23/2024 2:45 PM EST Clinical Support Family Medicine at [address] [address] Julia Low [facility] 01/30/2025 1:30 PM EDT Laboratory Appointment Lab at [facility] Hematology Oncology [address] [place] [address] 01/30/2025 3:[address] [place] [address] Arturo Cordero MD [facility] DR HEMATOLOGY [place] [address] 01/30/2025 4:15 PM EDT Office Visit Hematology and Oncology at [facility] [place] [address] Arturo Cordero MD [facility] DR HEMATOLOGY [place] [address] documented as of this encounter Results * [...] who have questions please contact the health primary care provider that requested your imaging first. [...] patients who have questions please contactthe health primary care provider that requested your imaging first. Leandra Black POLICE MANAGER [facility] [place] ORDERABLES * CT Neck Soft Tissue [...] who have questions please contact the health primary care provider that requested your imaging first. ? Electronically signed by: Chuy Delgado MD, [facility] ([phone]), at 06/24/2022 11:34 AM Narrative 06/24/2022 11:34 [...] patients who have questions please contactthe health primary care provider that requested your imaging first. Leandra Chelsea Black POLICE MANAGER IMG CT ORDERABLES * US Soft Tissue [...] signed by: Roland Izaguirre MD, [facility] ([phone]), at 03/21/2022 1:56 PM Thank you for letting us participate in the care of this patient. If you are a health care provider and have any questions regarding this report, please contact the number above. For patients who have questions, please contact the health primary care provider that requested your imaging first. ? Roland Izaguirre, Staff Physician Electronically Signed Final Report ?? 03/21/2022 02:04 pm Narrative 03/21/2022 2:05 PM EDT Ultrasound Lymph Node ? (Signed Final 03/21/2022 02:04 pm) Report PATIENT INFO: ID #: ? [id number] ?: ??[birth year] (61 yrs)(F) Name: ? PATIENCE MANJARREZ ? Visit Date: 03/21/2022 01:33 pm PERFORMED BY: Performed By: ? Stephany Pittman RDMS Attending: ?Dmitriy COLVIN, Roland Fung Resident: ? Rojelio COLVIN, Gia Davalos Referred By: ?LEANDRA BLACK Location: ? [place] SERVICE(S) PROVIDED: USTN - Soft Tissue Neck or Head - [id number] ? [id number] INDICATIONS: History of left eye conjunctival melanoma s/p resection, [facility] imaging of left neck ran basin --------- FINDINGS: --------- Title: ? Ultrasound Lymph Node Report Findings: ?Several visualized lymph nodes, largest measures ?1.6 cm left level 2. Procedure Note Roland Izaguirre MD - 03/21/2022 Ultrasound Lymph Node (Signed Final 03/21/2022 02:04 pm) Report PATIENT INFO: ID #: [id number] : 58 (61 yrs)(F) Name: PATIENCE MANJARREZ Visit Date: 03/21/2022 01:33 pm PERFORMED BY: Performed By: Stephany Pittman RDMS Attending: Roland Izaguirre MD Resident: Rojelio COLVIN, Gia Davalos Referred By: LEANDRA BLACK Location: [place] SERVICE(S) PROVIDED: USTN - Soft Tissue Neck or Head - [id number] INDICATIONS: History of left eye conjunctival melanoma [...] signed by: Roland Izaguirre MD, [facility] ([phone]), at 03/21/2022 1:56 PM Thank you for letting us participate in the care of this patient. If you are a health care provider and have any questions regarding this report, please contact the number above. For patients who have questions, please contact the health primary care provider that requested your imaging first. Roland Izaguirre, Staff Physician Electronically Signed Final Report 03/21/2022 02:04 pm Leandra Black APRN IMG US GEN ORDERAB LES * Lactate Dehydrogenase (12/23/2021 12:45 PM EDT) Lactate Dehydrogenase 219 110 - 220 unit/L [facility] Blood 12/23/2021 12:4 5 PM EDT 12/23/2021 1:04 PM EDT Narrative Resulting Agency Comment Spec In Lab Leandra Black APRN CHEMISTRY ORDERABL ES [facility] [place] [address] * (ABNORMAL) Comprehensive metabolic panel (non-fasting) (12/23/2021 [...] APRN CHEMISTRY ORDERABL ES [facility] [place] [address] documented in this encounter Visit Diagnoses Diagnosis Malignant melanoma of conjunctiva, left History of renal cell cancer Malignant melanoma of conjunctiva, left Malignant melanoma of conjunctiva, left documented in this encounter Care Teams Glass Embosser Relationship Specialty Start Date End Date Luis E Narayan MD [facility] DR LILI W[place] [address] PCP - General Family Medicine 03/26/19 01/19/22 documented as of this encounter
--- OUTSIDE RECORDS SUMMARY | 2024-04-15 15:53 | XMS_ITS | Encounter Summary ---
[place] [address] Care Team Providers Care Professor Of Practice Name Role Phone Luis E Narayan MD Primary Care Provider Reason for Referral * Diagnostic Test (Routine) - Closed Specialty Diagnoses / Procedures Referred By Gonzalez kumari Referred To Contact Gastroenterology Diagnoses Bloating Dyspepsia HBT - glucose - bloating Procedures Breath Hydrogen Test HBT - glucose - bloating Alejandra Pop APRN [address] [place] [address] [facility] [address] [place] [address] Referral ID Status Reason Start Date Expiration Date V isits Requested Visits Authorized [id number] Closed Consult, Test & Treat 03/01/2022 03/01/2023 1 1 * Diagnostic Test (Routine) - Closed Specialty Diagnoses / Procedures Referred By Gonzalez kumari Referred To Contact Gastroenterology Diagnoses Bloating Dyspepsia Smartpill for nausea Procedures SmartPill Smartpill for nausea Alejandra Pop APRN [address] [place] [address] [facility] [address] [place] [address] Referral ID Status Reason Start Date Expiration Date V isits Requested Visits Authorized [id number] Closed Consult, Test & Treat 03/01/2022 03/01/2023 1 1 Reason for Visit * Consultation (Routine) - Closed Specialty Diagnoses / Procedures Referred By Contac t Referred To Contact Gastroenterology Diagnoses NAFL (nonalcoholic fatty liver) /abd pain/bloating - see Luis E Saba MD [facility] DR LILI [place] [address] [facility] [place] [address] [place] [address] Referral ID Status Reason Start Date Expiration Date V isits Requested Visits Authorized [id number] Closed Consult, Test & Treat 12/15/2021 12/15/2022 1 1 Encounter Details Date Type Department Care Team (Late st Contact Info) Description 03/01/2022 3:00 PM EDT Office Visit [place] [address] Alejandra Pop, MAMMOGRAPHY TECHNICIAN [address] [place] [address] Bloating; Dyspepsia Social History Tobacco [...] desk 3L on the main campus of [facility] [place] or may report to [facility] 8. Smart pill. You will hear from our radiology scheduler to set this up once an appointment becomes available. You should hear from someone within one week. If not please call us. If insurance doesn't cover the smart pill, I will ask you to do a gastric emptying scan instead. We will let you know. Please call radiology at to schedule. 9. Hydrogen breath test. You will hear from our radiology scheduler to set this up once an [...] spacer 1 each ??? FreeStyle Sanjana 2 [place] Misc 1 each by Other route daily. Indications: diabetes mellitus 1 each 0 ??? FreeStyle Sanjana 2 Sensor Kit 1 each by Other route every 14 days. Indications: diabetes mellitus 2 kit 0 ??? FreeStyle Lancets 28 gauge Misc 1 each by Other route 3 times daily. Indications: diabetes mellitus 100 each 11 ??? 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 Family [...] after testing is complete Alejandra Pop APRN [facility] [place] [address] documented in this encounter Plan of Treatment Upcoming Encounters Date Type Department Care Team (Late st Contact Info) Description 05/01/2024 11:20 AM EDT Appointment Mammography/[place] [address] Rodney Padilla MD 05/01/2024 1:45 PM EDT Office [place] [address] Juanpablo Hernandez MD [facility] [place] [address] 05/23/2024 2:45 PM EST Clinical Support Family Medicine at [place] [address] [place] [address] Julia Low, [facility] 01/30/2025 1:30 PM EDT Laboratory Appointment Lab at [facility] Hematology Oncology [address] [place] [address] 01/30/2025 3:[address] [place] [address] Arturo Cordero MD [facility] DR HEMATOLOGY [place] [address] 01/30/2025 4:15 PM EDT Office Visit Hematology [place] [address] Arturo Cordero MD [facility] DR HEMATOLOGY [place] [address] Scheduled Orders Name Type Priority Associated Diagnoses Orde r Schedule SmartPill GI Routine Bloating Dyspepsia Expected: 03/01/2022 (Approximate), Expires: 08/31/2022 Breath Hydrogen Test GI Routine Bloating Dyspepsia Expected: 03/01/2022 (Approximate), Expires: 08/31/2022 documented as of this encounter Visit Diagnoses Diagnosis Bloating Flatulence, eructation, and gas pain Dyspepsia Dyspepsia and other specified disorders of function of stomach documented in this encounter Care Teams Professor Of Practice Relationship Specialty Start Date End Date Luis E Narayan MD [facility] DR LILI W[place] [address] PCP - General Family Medicine 01/20/22 07/17/22 documented as of this encounter
--- OUTSIDE RECORDS SUMMARY | 2024-04-15 15:53 | XMS_ITS | Encounter Summary ---
Author Organization [facility] Address [facility] [place] [address] Care Team Providers Care Fisher Pound Net Or Trap Name Role Phone Luis E Narayan MD Primary Care Provider +1- [phone] Reason for Visit * Reason Onset Date Comments Medication Refill 01/29/2022 Encounter Details Date Type Department Care Team (Late st Contact Info) Description 01/29/2022 Refill Family Medicine at [facility] [address] [place] [address] Luis E Narayan MD [facility] DR LILI [place] [address] Social History Tobacco Use Types Packs/Day Years [...] AM EDT Appointment Mammography/[place] [address] Rodney Padilla MD 05/01/2024 1:45 PM EDT Office Visit Ophthalmology at [place] [phone] Juanpablo Hernandez MD [facility] [place] [address] 05/23/2024 2:45 PM EST Clinical Support Family Medicine at [place] [address] [place] [address] Julia Low, [facility] 01/30/2025 1:30 PM EDT Laboratory Appointment Lab at [facility] Hematology Oncology [address] [place] [address] 01/30/2025 3:[address] [place] [address] Arturo Cordero MD [facility] DR [place] [address] 01/30/2025 4:15 PM EDT Office Visit Hematology and Oncology at [place] [phone] Arturo Cordero MD [facility] DR [place] [address] documented as of this encounter Visit Diagnoses Not on filedocumented in this encounter Care Teams Fisher Pound Net Or Trap Relationship Specialty Start Date End Date Luis E Narayan MD [facility] DR LILI [place] [address] PCP - General Family Medicine 01/20/22 07/17/22 documented as of this encounter
--- OUTSIDE RECORDS SUMMARY | 2024-04-15 15:53 | XMS_ITS | Encounter Summary ---
Author Organization Counts Include [address] [place] [address] Care Team Providers Care Electrophysiology Technologist Name Role Phone Luis E Narayan MD Primary Care Provider +1- [phone] Encounter Details Date Type Department Care Team (Latest Contact Info) Description 03/06/2022 2:02 PM EDT - 03/06/2022 11:59 PM EDT Hospital [place] [address] Bloating; Dyspepsia Discharge Disposition: Home Social History [...] each 11 12/10/2021 02/04/2023 FreeStyle Sanjana 2 [place] MiscIndications:diabetes mellitus 1 each by Other route daily. Indications: diabetes mellitus 1 each 10/26/2021 01/23/2023 FreeStyle Sanjana 2 Sensor KitIndications:diabetes mellitus 1 each by Other route every 14 days. Indications: diabetes mellitus 2 kit 10/26/2021 01/23/2023 FreeStyle Lancets 28 gauge MiscIndications:diabetes mellitus 1 each by Other route 3 times daily. Indications: diabetes mellitus 100 each 11 10/11/2021 06/16/2022 fluticasone propionate (Flonase) 50 mcg/actuation [place], Suspension 1 spray by Each Nare route [...] 05/01/2024 11:20 AM EDT Appointment Mammography/[place] [address] Rodney Padilla MD 05/01/2024 1:45 PM EDT Office [place] [address] Juanpablo Hernandez MD [facility] [place] [address] 05/23/2024 2:45 PM EST Clinical Support Family Medicine at [address] [address] Julia Low [facility] 01/30/2025 1:30 PM EDT Laboratory Appointment Lab at [facility] [place]ology Oncology [address] [place] [address] 01/30/2025 3:[address] [place] [address] Arturo Cordero MD [facility] DR HEMAT[place] [address] 01/30/2025 4:15 PM EDT Office Visit Hematology and [place]cology [place] [address] Arturo Cordero MD [facility] DR [place]AT[place] [address] documented as of this encounter Procedures Procedure Name Priority Date/Time Associated Diagnosis Comments CRYPTOSPORIDIUM OOCYST ANTIGEN ([facility]APD) Routine 03/07/2022 9:37 AM EDT Bloating Dyspepsia HC GIARDIA ANTIGEN ELOY METHOD Routine 03/07/2022 9:37 AM EDT Bloating Dyspepsia GIARDIA ANTIGEN ([facility]D/NLH) Routine 03/07/2022 9:37 AM EDT Bloating Dyspepsia documented in this encounter Results * Cryptosporidium Oocyst Antigen ([facility]D) (03/07/2022 9:37 AM EDT) Cryptosporidium Antigen Negative Negative [facility] Stool 03/07/2022 9:37 AM EDT 03/07/2022 2:21 PM EDT Narrative Resulting Agency Comment Spec In Lab Alejandra Pop AUTO SALVAGE WORKER MICROBIOLOGY - G ENERAL ORDERABLES [facility] [place] [address] * Giardia antigen ([facility]/APD/NLH) (03/07/2022 9:37 AM EDT) Giardia Antigen Negative Negative [facility] Comment:Examination for othe r intestinal parasites requires foreign travel history. Stool 03/07/2022 9:37 AM EDT 03/07/2022 2:21 PM EDT Narrative Resulting Agency Comment Spec In Lab Alejandra Pop AUTO SALVAGE WORKER MICROBIOLOGY - G ENERAL ORDERABLES [facility] [place] [address] documented in this encounter Visit Diagnoses Diagnosis Bloating Flatulence, eructation, and gas pain Dyspepsia Dyspepsia and other specified disorders of function of stomach documented in this encounter Care Teams Electrophysiology Technologist Relationship Specialty Start Date End Date Luis E Narayan MD [facility] [address] [place] [address] PCP - General Family Medicine 01/20/22 07/17/22 documented as of this encounter
--- OUTSIDE RECORDS SUMMARY | 2024-04-15 15:53 | XMS_ITS | Encounter Summary ---
Author Organization [facility] [place] [address] Care Team Providers Care Data Solutions Architect Name Role Phone Luis E Narayan MD Primary Care Provider +1- [phone] Encounter Details Date Type Department Care Team (Latest Contact Info) Description 03/07/2022 2:01 PM EDT - 03/07/2022 11:59 PM EDT Hospital [place] [address] Bloating; Dyspepsia Discharge Disposition: Home Social History [...] each 11 12/10/2021 02/04/2023 FreeStyle Sanjana 2 [place] MiscIndications:diabetes mellitus 1 each by Other route daily. Indications: diabetes mellitus 1 each 10/26/2021 01/23/2023 FreeStyle Sanjana 2 Sensor KitIndications:diabetes mellitus 1 each by Other route every 14 days. Indications: diabetes mellitus 2 kit 10/26/2021 01/23/2023 FreeStyle Lancets 28 gauge MiscIndications:diabetes mellitus 1 each by Other route 3 times daily. Indications: diabetes mellitus 100 each 11 10/11/2021 06/16/2022 fluticasone propionate (Flonase) 50 mcg/actuation [place], Suspension 1 spray by Each Nare route [...] 05/01/2024 11:20 AM EDT Appointment Mammography/[place] [address] Rodney Padilla MD 05/01/2024 1:45 PM EDT Office [place] [address] [facility] [place] [address] 05/23/2024 2:45 PM EST Clinical Support Family Medicine at [address] [address] Julia Low [facility] 01/30/2025 1:30 PM EDT Laboratory Appointment Lab at [facility] Hematology Oncology [address] [place] [address] 01/30/2025 3:[address] [place] [place] [address] [facility] [place] [address] 01/30/2025 4:15 PM EDT Office Visit Hematology and [place]cology [place] [address] [facility] [place] [address] documented as of this encounter Procedures Procedure [...] 1 EIA Negative for Shiga Toxin 2 [facility] Stool 03/07/2022 11:2 0 AM EDT 03/07/2022 2:22 PM EDT Narrative Resulting Agency Comment Spec In Lab Alejandra Pop CHEMICAL RECOVERY OPERATOR MICROBIOLOGY - G ENERAL ORDERABLES [facility] [place] [address] * Campylobacter Antigen (03/07/2022 11:20 AM EDT) Campylobacter Ag Immunoassay Negative for Campylobacter Antigen [facility] Stool 03/07/2022 11:2 0 AM EDT 03/07/2022 2:22 PM EDT Narrative Resulting Agency Comment Spec In Lab Alejandra Pop CHEMICAL RECOVERY OPERATOR MICROBIOLOGY - G ENERAL ORDERABLES Performing Organization Address City/[facility]/ZIP Co de Phone Number [facility] [place] [address] * Stool culture (03/07/2022 11:20 AM EDT) Stool Culture No enteric pathogens isolated [facility] Stool 03/07/2022 11:2 0 AM EDT 03/07/2022 2:22 PM EDT Narrative Resulting Agency Comment Spec In Lab Alejandra Pop CHEMICAL RECOVERY OPERATOR MICROBIOLOGY - G ENERAL ORDERABLES Performing Organization Address [facility] Co de Phone Number [facility] [place] [address] documented in this encounter Visit Diagnoses Diagnosis Bloating Flatulence, eructation, and gas pain Dyspepsia Dyspepsia and other specified disorders of function of stomach documented in this encounter Care Teams Data Solutions Architect Relationship Specialty Start Date End Date Luis E Narayan MD [facility] [address] [address] PCP - General Family Medicine 01/20/22 07/17/22 documented as of this encounter
--- OUTSIDE RECORDS SUMMARY | 2024-04-15 15:53 | XMS_ITS | Encounter Summary ---
Author Organization [facility] Address [facility] [place] [address] Care Team Providers Care Solderer Name Role Phone Luis E Narayan MD Primary Care Provider +1- [phone] Reason for Visit * Reason Onset Date Comments Medication Refill 02/11/2022 Encounter Details Date Type Department Care Team (Late st Contact Info) Description 02/11/2022 Refill Family Medicine at [facility] [address] [place] [address] Luis E Narayan MD [facility] DR [address] [place] [address] Type 2 diabetes mellitus without long-term current [...] 05/01/2024 11:20 AM EDT Appointment Mammography/[place] [address] Rodney Padilla MD 05/01/2024 1:45 PM EDT Office Visit Ophthalmology at [place] [phone] Juanpablo Hernandez MD [facility] [place] [place] [address] 05/23/2024 2:45 PM EST Clinical Support Family Medicine at [address] [address] Julia Low [facility] 01/30/2025 1:30 PM EDT Laboratory Appointment Lab at [facility] [place]ematology Oncology [address] [place] [address] 01/30/2025 3:[address] [place] [address] Arturo Cordero MD [facility] [place] [address] 01/30/2025 4:15 PM EDT Office Visit Hematology [place] [address] Arturo Cordero MD [facility] [place] [address] documented as of this encounter Visit Diagnoses Diagnosis Type 2 diabetes mellitus without long-term current use of insulin documented in this encounter Care Teams Solderer Relationship Specialty Start Date End Date Luis E Narayan MD [facility] [address] [place] [address] PCP - General Family Medicine 01/20/22 07/17/22 documented as of this encounter
--- OUTSIDE RECORDS SUMMARY | 2024-04-15 15:53 | XMS_ITS | Encounter Summary ---
[place] [address] Care Team Providers Care Community Coordinator For [employer] Name Role Phone Luis E Narayan MD Primary Care Provider +1- [phone] Encounter Details Date Type Department Care Team (Late st Contact Info) Description 12/14/2021 [place] [address] Gris Galloway, RN Social History Tobacco Use [...] EGD and colonoscopy performed last year at [facility]. Was seen in [facility] ED recently and PPI changed from [...] 05/01/2024 11:20 AM EDT Appointment Mammography/[place] [address] Rodney Padilla MD 05/01/2024 1:45 PM EDT Office [place] [address] Juanpablo Hernandez MD [facility] [place] [address] 05/23/2024 2:45 PM [facility] Clinical Support Family Medicine at [facility] [address] [place] [address] Julia Low, [facility] 01/30/2025 1:30 PM EDT Laboratory Appointment Lab at [facility] Hematology Oncology [address] [place] [address] 01/30/2025 3:[address] [place] [place] [address] Arturo Cordero MD [facility] DR HEMAT[place]Y [place] [address] 01/30/2025 4:15 PM EDT Office Visit Hematology [place] [address] Arturo Cordero MD [facility] DR [place]AT[place] [address] documented as of this encounter Visit Diagnoses Not on filedocumented in this encounter Care Teams Community Coordinator [employer] Relationship Specialty Start Date End Date Luis E Narayan MD [facility] [address] LIL[address] [place] [address] PCP - General Family Medicine 03/26/19 01/19/22 documented as of this encounter
--- OUTSIDE RECORDS SUMMARY | 2024-04-15 15:53 | XMS_ITS | Encounter Summary ---
Author Organization [facility] Address [facility] [place] [address] Care Team Providers Care Chief Nurse Executive Name Role Phone Luis E Narayan MD Primary Care Provider +1- [phone] Reason for Visit * Reason Onset Date Comments Medication Refill 12/10/2021 Encounter Details Date Type Department Care Team (Late st Contact Info) Description 12/10/2021 Refill Family Medicine at [facility] [address] [place] [address] Luis E Narayan MD [facility] [address] L[address] [place] [address] COPD Social History Tobacco Use Types Packs/Day [...] 05/01/2024 11:20 AM EDT Appointment Mammography/[place] [address] Rodney Padilla MD 05/01/2024 1:45 PM EDT Office Visit Ophthalmology at [place] [phone] Juanpablo Hernandez MD [facility] [place] [place] [address] 05/23/2024 2:45 PM EST Clinical Support Family Medicine at [place] [address] [place] [address] Julia Low, [facility] 01/30/2025 1:30 PM EDT Laboratory Appointment Lab at [facility] Hematology Oncology [address] [place] [address] 01/30/2025 3:[address] [place] [address] Arturo Cordero MD [facility] DR [place] [address] 01/30/2025 4:15 PM EDT Office Visit Hematology [place] [address] Arturo Cordero MD [facility] DR [place] [address] documented as of this encounter Visit Diagnoses Diagnosis COPD Simple chronic bronchitis documented in this encounter Care Teams Chief Nurse Executive Relationship Specialty Start Date End Date Luis E Narayan MD [facility] [address] [place] [address] PCP - General Family Medicine 03/26/19 01/19/22 documented as of this encounter
--- OUTSIDE RECORDS SUMMARY | 2024-04-15 15:53 | XMS_ITS | Encounter Summary ---
Author Organization [facility] Address [facility] [place] [address] Care Team Providers Care Technical Supervisor Name Role Phone Luis E Narayan MD Primary Care Provider +1- [phone] Encounter Details Date Type Department Care Team (Late st Contact Info) Description 11/08/2021 Telephone Family Medicine at [facility] [address] [place] [address] Luis E Narayan MD [facility] DR LIL[address] [place] [address] Social History Tobacco Use Types Packs/Day Years [...] 05/01/2024 11:20 AM EDT Appointment Mammography/DXA at [place] [phone] Rodney Padilla MD 05/01/2024 1:45 PM EDT Office Visit Ophthalmology at [place] [phone] Juanpablo Hernandez MD [facility] [place] [place] [address] 05/23/2024 2:45 PM EST Clinical Support Family Medicine at [facility] [address] [place] [address] Julia Low, [facility] 01/30/2025 1:30 PM EDT Laboratory Appointment Lab at [facility] Hematology Oncology [address] [place] [address] 01/30/2025 3:[address] [place] [place] [address] Arturo Cordero MD [facility] [place] [address] 01/30/2025 4:15 PM EDT Office Visit [place]ology [place] [address] Arturo Cordero MD [facility] [place] [address] documented as of this encounter Visit Diagnoses Not on filedocumented in this encounter Care Teams Technical Supervisor Relationship Specialty Start Date End Date Luis E Narayan MD [facility] [address] [place] [address] PCP - General Family Medicine 03/26/19 01/19/22 documented as of this encounter
--- OUTSIDE RECORDS SUMMARY | 2024-04-15 15:53 | XMS_ITS | Encounter Summary ---
Author Organization [facility] Address [facility] [place] [address] Care Team Providers Care Critical Care Physician Assistant Name Role Phone Rodney Padilla MD Primary Care Provider Unav ailable Reason for Visit * Reason Onset Date Comments Medication Refill 10/11/2021 Encounter Details Date Type Department Care Team (Late st Contact Info) Description 10/11/2021 Refill Family Medicine at [facility] [address] [place] [address] Luis E Narayan MD [facility] DR LILI W[place] [address] Type 2 diabetes mellitus without long-term current [...] 05/01/2024 11:20 AM EDT Appointment Mammography/[place] [address] Rodney Padilla MD 05/01/2024 1:45 PM EDT Office Visit Ophthalmology at [place] [phone] Juanpablo Hernandez MD [facility] [address] 05/23/2024 2:45 PM EST Clinical Support Family Medicine at [address] [address] Julia Low, [facility] 01/30/2025 1:30 PM EDT Laboratory Appointment Lab at [facility] [place] [address] [place] [address] 01/30/2025 3:[address] [place] [address] Arturo Cordero MD [facility] DR HEMATOLOGY [place] [address] 01/30/2025 4:15 PM EDT Office Visit Hematology [place] [address] Arturo Cordero MD [facility] DR HEMATOLOGY [place] [address] documented as of this encounter Visit Diagnoses Diagnosis Type 2 diabetes mellitus without long-term current use of insulin documented in this encounter Care Teams Critical Care Physician Assistant Relationship Specialty Start Date End Date Rodney Padilla MD PCP - General 07/18/22 04/09/24 documented as of this encounter
--- OUTSIDE RECORDS SUMMARY | 2024-04-15 15:53 | XMS_ITS | Encounter Summary ---
Author Organization [facility] Address [facility] [place] [address] Care Team Providers Care Retail Selling Specialist Name Role Phone Daryn Garrett MD Primary Care Provider Reason for Visit * Reason Onset Date Comments Medication Refill 10/02/2021 Encounter Details Date Type Department Care Team (Late st Contact Info) Description 10/02/2021 Refill Family Medicine at [facility] [address] [place] [address] Luis E Narayan MD [facility] DR [address] [place] [address] Social History Tobacco Use Types Packs/Day Years [...] 11:20 AM EDT Appointment Mammography/[place] [address] Rodney Padilla MD 05/01/2024 1:45 PM EDT Office [place] [address] Juanpablo Hernandez MD [facility] [place] [address] 05/23/2024 2:45 PM EST Clinical Support Family Medicine at [facility] [address] [place] [phone] Julia Low [facility] 01/30/2025 1:30 PM EDT Laboratory Appointment Lab at [facility] Hematology Oncology [address] [place] [address] 01/30/2025 3:[address] [place] [address] Arturo Cordero MD [facility] [place] [address] 01/30/2025 4:15 PM EDT Office Visit Hematology [place] [address] Arturo Cordero MD [facility] [place] [address] documented as of this encounter Visit Diagnoses Not on filedocumented in this encounter Care Teams Retail Selling Specialist Relationship Specialty Start Date End Date Daryn Garrett MD [facility] [address] [place] [address] PCP - General 04/10/24 documented as of this encounter
--- OUTSIDE RECORDS SUMMARY | 2024-04-15 15:53 | XMS_ITS | Encounter Summary ---
Author Organization [facility] Address [facility] [place] [address] Care Team Providers Care Event Operations Manager Name Role Phone Luis E Narayan MD Primary Care Provider [phone]- [phone] Reason for Referral * Consultation (Routine) - Closed Specialty Diagnoses / Procedures Referred By Gonzalez kumari Referred To Contact Dermatology Diagnoses Malignant melanoma of conjunctiva, left Shane Givens MD [facility] [place] [address] [facility] Dermatology [address] [place] [address] Referral ID Status Reason Start Date Expiration Date V isits Requested Visits Authorized [id number] Closed Consult, Test & Treat 11/17/2021 11/17/2022 1 1 Encounter Details Date Type Department Care Team (Late st Contact Info) Description 11/17/2021 1:30 PM EDT Office Visit [place] [address] Shane Givens MD [facility] [place] [address] Malignant melanoma of conjunctiva, left; Diabetic eye [...] 05/01/2024 11:20 AM EDT Appointment Mammography/[place] [address] Rodney Padilla MD 05/01/2024 1:45 PM EDT Office Visit [place] [address] Juanpablo Hernandez MD [facility] [place] [address] 05/23/2024 2:45 PM EST Clinical Support Family Medicine at [facility] [address] [place] [address] Julia Low, [facility] 01/30/2025 1:30 PM EDT Laboratory Appointment Lab at [facility] Hematology Oncology [address] [place] [address] 01/30/2025 3:[address] [place] [address] Arturo Cordero MD [facility] DR [place] [address] 01/30/2025 4:15 PM EDT Office Visit Hematology [place] [address] Arturo Cordero MD [facility] [place] [address] Scheduled Referrals Name Type Priority Associated Diagnoses Order Schedule Referral to Dermatology Outpatient Referral Routine Malignant melanoma of conjunctiva, left Ordered: 11/17/2021 documented as of this encounter Visit Diagnoses Diagnosis Malignant melanoma of conjunctiva, left Diabetic eye exam Examination of eyes and vision documented in this encounter Care Teams Event Operations Manager Relationship Specialty Start Date End Date Luis E Narayan MD [facility] DR LIL[address] [place] [address] PCP - General Family Medicine 03/26/19 01/19/22 documented as of this encounter
--- OUTSIDE RECORDS SUMMARY | 2024-04-15 15:53 | XMS_ITS | Encounter Summary ---
Author Organization [facility] [place] [address] Care Team Providers Care Optoelectronics Engineer Name Role Phone Luis E Narayan MD Primary Care Provider [phone]- [phone] Encounter Details Date Type Department Care Team (Latest Contact Info) Description 03/03/2022 2:03 PM EDT - 03/03/2022 11:59 PM EDT [place] [address] Discharge Disposition: Home Social History Tobacco Use [...] 1 each 12/10/2021 02/04/2023 FreeStyle Sanjana 2 Ina MiscIndications:diabetes mellitus 1 each by Other route daily. Indications: diabetes mellitus 1 each 10/26/2021 01/23/2023 FreeStyle Sanjana 2 Sensor KitIndications:diabetes mellitus 1 each by Other route every 14 days. Indications: diabetes mellitus 2 kit 10/26/2021 01/23/2023 FreeStyle Lancets 28 gauge MiscIndications:diabetes mellitus 1 each by Other route 3 times daily. Indications: diabetes mellitus 100 each 11 10/11/2021 06/16/2022 fluticasone propionate (Flonase) 50 mcg/actuation [place], Suspension 1 spray by Each Nare route [...] 11:20 AM EDT Appointment Mammography/[place] [address] Rodney Padilla MD 05/01/2024 1:45 PM EDT Office Visit [place] [address] Juanpablo Hernandez MD [facility] [place] [address] 05/23/2024 2:45 PM EST Clinical Support Family Medicine at [facility] [address] [place] [address] Julia Low, [facility] 01/30/2025 1:30 PM EDT Laboratory Appointment Lab at [facility] Hematology Oncology [address] [place] [address] [phone] 01/30/2025 3:[address] [place] [address] Arturo Cordero MD [facility] DR HEMATOLOGY AND ONCOLOGY [place], [place] [phone] 01/30/2025 4:15 PM EDT Office Visit Hematology [place] [address] Arturo Cordero MD [facility] [place] [address] documented as of this encounter Visit Diagnoses Not on filedocumented in this encounter Care Teams Optoelectronics Engineer Relationship Specialty Start Date End Date Luis E Narayan MD [facility] [address] [place] [address] PCP - General Family Medicine 01/20/22 07/17/22 documented as of this encounter
--- OUTSIDE RECORDS SUMMARY | 2024-04-15 15:53 | XMS_ITS | Encounter Summary ---
Author Organization [facility] Address [facility] [place] [address] Care Team Providers Care Transmission Maintenance Supervisor Name Role Phone Daryn Garrett MD Primary Care Provider Encounter Details Date Type Department Care Team (Late st Contact Info) Description 09/10/2021 Refill Family Medicine at [facility] [address] [place] [address] Luis E Narayan MD [facility] DR [address] [place] [address] Social History Tobacco Use Types Packs/Day Years [...] 05/01/2024 11:20 AM EDT Appointment Mammography/[place] [address] Rodney Padilla MD 05/01/2024 1:45 PM EDT Office [place] [address] Juanpablo Hernandez MD [facility] [place] [address] 05/23/2024 2:45 PM EST Clinical Support Family Medicine at [facility] [address] [place] [address] Julia Low, [facility] 01/30/2025 1:30 PM EDT Laboratory Appointment Lab at [facility] Hematology Oncology [address] [place] [address] 01/30/2025 3:[address] [place] [address] Arturo Cordero MD [facility] [place] [address] 01/30/2025 4:15 PM EDT Office Visit Hematology [place] [address] Arturo Cordero MD [facility] [place] [address] documented as of this encounter Visit Diagnoses Not on filedocumented in this encounter Care Teams Transmission Maintenance Supervisor Relationship Specialty Start Date End Date Daryn Garrett MD [facility] [address] [place] [address] PCP - General 04/10/24 documented as of this encounter
--- OUTSIDE RECORDS SUMMARY | 2024-04-15 15:53 | XMS_ITS | Encounter Summary ---
Author Organization [facility] [place] [address] Care Team Providers Care Zinc Furnace Charger Name Role Phone Luis E Narayan MD Primary Care Provider Reason for Referral * Consultation (Routine) - Closed Specialty Diagnoses / Procedures Referred By Gonzalez white Referred To Contact Hematology and Oncology Diagnoses History of malignant melanoma of eye Alonso Young MD [facility] DR LIL[address] [place] [address] [facility] Hem Onc [address] [place] [address] Referral ID Status Reason Start Date Expiration Date V isits Requested Visits Authorized [id number] Closed Consult, Test & Treat 02/14/2022 02/14/2023 1 1 Reason for Visit * Consultation (Routine) - Closed Specialty Diagnoses / Procedures Referred By Contchrissy white Referred To Contact Dermatology Diagnoses Malignant melanoma of conjunctiva, left Givens, Shane White MD [facility] [place] [address] [facility] Dermatology [address] [place] [address] Referral ID Status Reason Start Date Expiration Date V isits Requested Visits Authorized [id number] Closed Consult, Test & Treat 11/17/2021 11/17/2022 1 1 Encounter Details Date Type Department Care Team (Late st Contact Info) Description 02/14/2022 10:00 AM EDT Office Visit Dermatology at [facility] [place] [facility] [address] [place] [address] Alonso Young MD [facility] DR LILI [place] [address] History of malignant melanoma of eye; Seborrheic [...] on the trunk and extremities, including R sabianist - Benign. No treatment needed. #. Solar [...] months for a FSE []Note routed to admin secretary [x]Recall placed in scheduling system []Appointment scheduled at checkout Scribe attestation: Lavinia Bains and Sugey Rodriguez [facility] have performed the documentation for this encounter in the presence of and acting as a scribe for Alonso Young MD. I performed the above scribed service and agree with the accuracy of the documentation in this encounter. Reviewed and signed by: Alonso Young MD [facility] Patient seen and evaluated with staff white goods appliance tech: Aris Taylor MD [facility] * Aris Taylor MD - 02/14/2022 [...] 05/01/2024 11:20 AM EDT Appointment Mammography/DXA at [place] [phone] Rodney Padilla MD 05/01/2024 1:45 PM EDT Office Visit Ophthalmology at [place] [phone] Juanpablo Hernandez MD [facility] [place] [address] 05/23/2024 2:45 PM EST Clinical Support Family Medicine at [address] [address] Julia Low, [facility] 01/30/2025 1:30 PM EDT Laboratory Appointment Lab at [facility] [place] [address] [place] [phone] 01/30/2025 3:[address] [place] [address] Arturo Cordero MD [facility] DR HEMATOLOGY [place] [address] 01/30/2025 4:15 PM EDT Office Visit Hematology [place] [address] Arturo Cordero MD [facility] HEMATOLOGY [place] [address] Scheduled Referrals Name Type Priority Associated Diagnoses [...] acquired documented in this encounter Care Teams Zinc Furnace Charger Relationship Specialty Start Date End Date Luis E Narayan MD [facility] [address] [place] [address] PCP - General Family Medicine 01/20/22 07/17/22 documented as of this encounter
--- OUTSIDE RECORDS SUMMARY | 2024-04-15 15:53 | XMS_ITS | Encounter Summary ---
Author Organization [facility] Address [facility] [place] [address] Care Team Providers Care Coloring Checker Name Role Phone Luis E Narayan MD Primary Care Provider [phone]- [phone] Reason for Visit * Reason Comments Diabetes Encounter Details Date Type Department Care Team (Late st Contact Info) Description 09/24/2021 11:30 AM EDT TH Visit (TeleHealth) Family Medicine at [facility] [address] [place] [address] Julia Low, 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 Lunch: [place] with ham/turkey, Dutch cheese, crisostomo, mustard with Doritos Dinner: Spaghetti [...] area transportation options [] Languages other than [place]: Early Learning Teacher services provided No [] Allowances for cultural diversity: meal plan will be tailored for cultural food shavon [] Hearing: Rural Health Consultant provided No [] Vision impaired: print augmentation for visual impairment [x] No learning barriers identified Patient reports that after being sick with a virus, and a hospital admission involving levothyroxine, she has speech and cognitive problems. Objective: Reconciled Medication List: Current Outpatient Medications Medication Sig Dispense Refill ??? fluticasone propionate (Flonase) 50 mcg/actuation [place], Suspension 1 spray by Each Nare route [...] 30 tablet 3 ??? FreeStyle Sanjana 2 [place] Misc 1 each by Other route daily. [...] 06/24/2011 Prescription Insurance: [facility] [id number] Assessment and Recommendations: 1. Diabetes Goals of [...] for the individual, but in general the [place] [employer] recommends a fasting blood sugar [...] were made at the appointment and that [facility] is providing recommendations (summary located at top of note) for provider review and follow up. Julia Low RPH 09/24/21 documented in this encounter Plan of Treatment Upcoming Encounters Date Type Department Care Team (Late st Contact Info) Description 05/01/2024 11:20 AM EDT Appointment Mammography/[place] [address] Rodney Padilla MD 05/01/2024 1:45 PM EDT Office [place] [address] Juanpablo Hernandez MD [facility] OPHTHALMOLOGY [place], [place] [phone] 05/23/2024 2:45 PM [facility] Clinical Support Family Medicine at [place] [address] [place] [address] Julia Low RPH 01/30/2025 1:30 PM EDT Laboratory Appointment Lab at [facility] [place] Oncology [address] [place] [address] [phone] 01/30/2025 3:[address] [place] [address] Arturo Cordero MD [facility] [place] [address] 01/30/2025 4:15 PM EDT Office Visit Hematology [place] [address] Arturo Cordero MD [facility] [place] [address] documented as of this encounter Visit Diagnoses Diagnosis Type 2 diabetes mellitus without long-term current use of insulin documented in this encounter Care Teams Coloring Checker Relationship Specialty Start Date End Date Luis E Narayan MD [facility] DR [address]IL[address] [place] [address] PCP - General Family Medicine 03/26/19 01/19/22 documented as of this encounter
--- OUTSIDE RECORDS SUMMARY | 2024-04-15 15:53 | XMS_ITS | Encounter Summary ---
Author Organization [facility] [place] [address] Care Team Providers Care Relay Motorman Name Role Phone Luis E Narayan MD Primary Care Provider [phone]- [phone] Reason for Referral * Consultation (Routine) - Closed Specialty Diagnoses / Procedures Referred By Gonzalez kumari Referred To Contact Weight and Wellness Diagnoses Diarrhea, unspecified type Obesity, unspecified classification, unspecified obesity type, unspecified whether serious comorbidity present Kelsey Pacheco DO [address] [place] [address] [address] [place] [address] [facility] [address] [place] [address] Referral ID Status Reason Start Date Expiration Date V isits Requested Visits Authorized [id number] Closed Consult, Test & Treat PCP Updated and/or Approved 01/20/2022 01/20/2023 1 1 Encounter Details Date Type Department Care Team (Late st Contact Info) Description 01/20/2022 Transcribe Orders eDH Incoming Referrals [phone] Kelsey Pacheco DO [address] [place] [address] [address] [place], [place] [phone] Diarrhea, unspecified type; Obesity, unspecified classification, unspecified [...] 11:20 AM EDT Appointment Mammography/[place] [address] Rodney Padilla MD 05/01/2024 1:45 PM EDT Office Visit [place] [address] Juanpablo Hernandez MD [facility] [place] [address] 05/23/2024 2:45 PM [facility] Clinical Support Family Medicine at [place] [address] [place] [address] Julia Low, [facility] 01/30/2025 1:30 PM EDT Laboratory Appointment Lab at [facility] Hematology Oncology [address] [place] [address] 01/30/2025 3:[address] [place] [address] Arturo Cordero MD [facility] DR HEMATOLOGY [place] [address] 01/30/2025 4:15 PM EDT Office Visit Hematology [place] [address] Arturo Cordero MD [facility] DR HEMATOLOGY [place] [address] Scheduled Referrals Name Type Priority Associated Diagnoses Orde r Schedule Referral to [facility] Center Outpatient Referral Routine Diarrhea, unspecified type Obesity, unspecified classification, unspecified obesity type, unspecified whether serious comorbidity present Ordered: 01/20/2022 documented as of this encounter Visit Diagnoses Diagnosis Diarrhea, unspecified type Obesity, unspecified classification, unspecified obesity type, unspecified whether serious comorbidity present documented in this encounter Care Teams Relay Motorman Relationship Specialty Start Date End Date Luis E Narayan MD [facility] DR LIL[address] W[place] [address] PCP - General Family Medicine 01/20/22 07/17/22 documented as of this encounter
--- OUTSIDE RECORDS SUMMARY | 2024-04-15 15:53 | XMS_ITS | Encounter Summary ---
Author Organization [facility] Address [facility] [place] [address] Care Team Providers Care Commercial Banker Name Role Phone Luis E Narayan MD Primary Care Provider +1- [phone] Reason for Visit * Reason Comments Diabetes Encounter Details Date Type Department Care Team (Late st Contact Info) Description 11/16/2021 10:00 AM EDT TH Visit (TeleHealth) Family Medicine at [facility] [address] [place] [address] Julia Low, [facility] Type 2 diabetes mellitus [...] antithrombotic long-term use, Arthritis, Asthma, Atherosclerosis of samish 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 [...] difficult to hear pt due to phone bookkeeper receptionist/limited service Allergies and Drug intolerance: Allergies [...] have left at prior so house Before [facility] Before Lunch After Supper 129 137 138 144 152 162 147 175 -November 119 146 -November 156 92 3-November 124 -November 164 -November 6-November 13-November 8-November 89 AM PHI Average 140 134 138 Lowest 89 92 138 Highest 175 152 138 Daily Avg 138 eA1c 7.872224 Prior Averages: 08/26/21 09/09/21 09/24/21 Daily Avg 157 168 131 eA1c 8.073184 8.46 7.20 Acute Complications Have you ever [...] enough to eat eggs every day. Lunch: [place] with ham/turkey, [place]oth[place] cheese, crisostomo, mustard with Doritos Dinner: Spaghetti [...] area transportation options [] Languages other than Moroccan: Trimmer Sawyer services provided No [] Allowances for cultural diversity: meal plan will be tailored for cultural food shavon [] Hearing: Insurance Processor provided No [] Vision impaired: print augmentation [...] 30 tablet 11 ??? FreeStyle Sanjana 2 [place] Misc 1 each by Other route daily. [...] 5 ??? fluticasone propionate (Flonase) 50 mcg/actuation [place], Suspension 1 spray by Each Nare route [...] 09/07/2005 TDAP 04/09/2019 , 06/24/2011 Prescription Insurance: [facility] [id number] Assessment and Recommendations: 1. Diabetes Goals of [...] for the individual, but in general the [place] Diabetes Association recommends a fasting blood sugar [...] the appointment and that [facility] is providing recommendations (summary located at top of note) for provider review and follow up. Julia Low, [facility] 11/16/21 documented in this encounter Plan of Treatment Upcoming Encounters Date Type Department Care Team (Late st Contact Info) Description 05/01/2024 11:20 AM EDT Appointment Mammography/[place] [address] Rodney Padilla MD 05/01/2024 1:45 PM EDT Office Visit Ophthalmology at [place] [phone] Juanpablo Hernandez MD [facility] [place] [address] 05/23/2024 2:45 PM EST Clinical Support Family [facility] at [address] [phone] Julia Low Bacilio 01/30/2025 1:30 PM EDT Laboratory Appointment Lab at [facility] Hematology Oncology [address] [place] [address] 01/30/2025 3:[address] [place] [address] Arturo Cordero MD [facility] [place] [address] 01/30/2025 4:15 PM EDT Office Visit Hematology [place] [address] Arturo Cordero MD [facility] [place] [address] documented as of this encounter Visit Diagnoses Diagnosis Type 2 diabetes mellitus without long-term current use of insulin documented in this encounter Care Teams Commercial Banker Relationship Specialty Start Date End Date Luis E Narayan MD [facility] [address] [place] [address] PCP - General Family Medicine 03/26/19 01/19/22 documented as of this encounter
--- OUTSIDE RECORDS SUMMARY | 2024-04-15 15:53 | XMS_ITS | Encounter Summary ---
Author Organization [facility] [place] [address] Care Team Providers Care Chipping Machine Operator Name Role Phone Luis E Narayan MD Primary Care Provider +1- [phone] Encounter Details Date Type Department Care Team (Late st Contact Info) Description 11/17/2021 11:19 AM EDT - 11/17/2021 11:59 PM EDT Hospital [place] [address] Leandra Black, INFORMATION CODER [facility] DR HEMATOLOGY [place] [address] Malignant melanoma of conjunctiva, left; Malignant melanoma, [...] each 3 11/07/2022 11/02/2023 FreeStyle Sanjana 2 [place] MiscIndications:diabetes mellitus 1 each by Other route [...] 10/01/2021 01/29/2022 fluticasone propionate (Flonase) 50 mcg/actuation [place], Suspension 1 spray by Each Nare route [...] 05/01/2024 11:20 AM EDT Appointment Mammography/[place] [address] Rodney Padilla MD 05/01/2024 1:45 PM EDT Office [place] [address] Juanpablo Hernandez MD [facility] [place] [address] 05/23/2024 2:45 PM EST Clinical Support Family Medicine at [facility] [address] [place] [address] Julia Low [facility] 01/30/2025 1:30 PM EDT Laboratory Appointment Lab at [facility] Hematology Oncology [address] [place] [address] 01/30/2025 3:[address] [place] [address] Arturo Cordero MD [facility] DR HEMATOLOGY [place] [address] 01/30/2025 4:15 PM EDT Office Visit Hematology [place] [address] Arturo Cordero MD [facility] HEMATOLOGY [place] [address] documented as of this encounter Procedures Procedure [...] have questions, please contact the health child caregiver private home that requested your imaging first. ? Nakia Goetz, Staff Physician Electronically Signed Final Report ?? 11/17/2021 11:59 am Narrative 11/17/2021 12:00 PM EDT Ultrasound Soft Tissue ?(Signed Final 11/17/2021 11:59 am) Neck Left PATIENT INFO: ID #: ? [id number] ?: ??58 (61 yrs)(F) Name: ? ALIZE MANJARREZ ? Visit Date: 11/17/2021 11:42 am PERFORMED BY: Performed By: ? Diana Lowe RDMS Attending: ?Nakia Goetz MD Referred By: ?LEANDRA BLACK Location: ? [place] SERVICE(S) PROVIDED: USTN - Soft Tissue Neck or Head - [id number] ? [id number] INDICATIONS: History of left eye conjunctival melanoma [...] am) Neck Left PATIENT INFO: ID #: [id number] : 58 (61 yrs)(F) Name: ALIZE MANAJRREZ Visit Date: 11/17/2021 11:42 am PERFORMED BY: Performed By: Diana Lowe RDMS Attending: Nakia Goetz MD Referred By: LEANDRA BLACK Location: [place] SERVICE(S) PROVIDED: USTN - Soft Tissue Neck or Head - [id number] INDICATIONS: History of left eye conjunctival melanoma [...] have questions, please contact the health child caregiver private home that requested your imaging first. Nakia Goetz, Staff Physician Electronically Signed Final Report 11/17/2021 11:59 am Leandra Black APRN IMG US GEN ORDERAB LES documented in this encounter Visit Diagnoses Diagnosis Malignant melanoma of conjunctiva, left Malignant melanoma, unspecified site documented in this encounter Care Teams Chipping Machine Operator Relationship Specialty Start Date End Date Luis E Narayan MD [facility] [address] [place] [address] PCP - General Family Medicine 03/26/19 01/19/22 documented as of this encounter
--- OUTSIDE RECORDS SUMMARY | 2024-04-15 15:54 | XMS_ITS | Encounter Summary ---
Author Organization [facility] [place] [address] Care Team Providers Care Cattle Dehorner Name Role Phone Luis E Narayan MD Primary Care Provider Reason for Referral * Diagnostic Test (Routine) - Closed Specialty Diagnoses / Procedures Referred By Contac t Referred To Contact Radiology Diagnoses Malignant melanoma of conjunctiva, left Procedures CT Chest Abdomen Pelvis w Contrast (Generic) Leandra Lopes APRN [facility] [address] [place] [address] [facility] [place] [address] Referral ID Status Reason Start Date Expiration Date V isits Requested Visits Authorized [id number] Closed Specialty Service Requested 12/17/2020 06/18/2022 1 1 Reason for Visit * Diagnostic Test (Routine) - Closed Specialty Diagnoses / Procedures Referred By Contac t Referred To Contact Radiology Diagnoses Malignant melanoma of conjunctiva, left Procedures CT Chest Abdomen Pelvis w Contrast (Generic) Leandra Lopes APRN [facility] [address] [place] [address] [facility] [place] [address] Referral ID Status Reason Start Date Expiration Date V isits Requested Visits Authorized [id number] Closed Specialty Service Requested 12/17/2020 06/18/2022 1 1 Encounter Details Date Type Department Care Team (Late st Contact Info) Description 06/24/2021 12:31 PM EST - 06/24/2021 12:42 PM EST Hospital Encounter CT Scan at [facility] [place] [address] Leandra Lopes APRN [facility] [address] [place] [address] Malignant melanoma of conjunctiva, left Discharge Disposition: [...] tablet 1 01/08/2021 08/02/2021 FreeStyle Sanjana 2 [place] MiscIndications:diabetes mellitus 1 each by Other route [...] 09/15/2020 09/19/2023 fluticasone propionate (FLONASE) 50 mcg/actuation [place], Suspension 1 spray by Each Nare route [...] 05/01/2024 11:20 AM EDT Appointment Mammography/[place] [address] Rodney Padilla MD 05/01/2024 1:45 PM EDT Office [place] [address] Juanpablo Hernandez MD [facility] [place] [address] 05/23/2024 2:45 PM EST Clinical Support Family Medicine at [address] [phone] Julia Low, [facility] 01/30/2025 1:30 PM EDT Laboratory Appointment Lab at [facility] Hematology Oncology [address] [place] [address] 01/30/2025 3:[address] [place] [address] Arturo Cordero MD [facility] [place] [address] 01/30/2025 4:15 PM EDT Office Visit Hematology [place] [address] Arturo Cordero MD [facility] [place] [address] documented as of this encounter Procedures Procedure [...] who have questions please contact the health social worker palliative care that requested your imaging first. ? Electronically signed by: Paulina Saldivar MD, [facility] ([phone]), at 06/24/2021 4:35 PM Narrative 06/24/2021 4:35 [...] patients who have questions please contactthe health social worker palliative care that requested your imaging first. Electronically signed by: Paulina Saldivar MD, [facility]([phone]), at 06/24/2021 4:35 PM Leandra Lopes APRN IMG CT ORDERABLES [...] mLs documented in this encounter Care Teams Cattle Dehorner Relationship Specialty Start Date End Date Luis E Narayan MD [facility] [address] [place] [address] PCP - General Family Medicine 03/26/19 01/19/22 documented as of this encounter
--- OUTSIDE RECORDS SUMMARY | 2024-04-15 15:54 | XMS_ITS | Encounter Summary ---
Author Organization [facility] [place] [address] Care Team Providers Care Manager Mail Name Role Phone Luis E Narayan MD Primary Care Provider Reason for Visit * Reason Comments Melanoma Encounter Details Date Type Department Care Team (Late st Contact Info) Description 07/27/2021 8:45 AM EST Office [place] [address] Juanpablo Hernandez MD [facility] [place] [address] Malignant melanoma of conjunctiva, left s/p excision [...] 05/01/2024 11:20 AM EDT Appointment Mammography/[place] [address] Rodney Padilla MD 05/01/2024 1:45 PM EDT Office [place] [address] Juanpablo Hernandez MD [facility] [place] [address] 05/23/2024 2:45 PM EST Clinical Support Family Medicine at [facility] [address] [place] [address] Julia Low [facility] 01/30/2025 1:30 PM EDT Laboratory Appointment Lab at [facility] Hematology Oncology [address] [place] [address] 01/30/2025 3:[address] [place] [address] Arturo Cordero MD [facility] DR HEMATOLOGY [place] [address] 01/30/2025 4:15 PM EDT Office Visit Hematology [place] [address] Arturo Cordero MD [facility] DR HEMATOLOGY [place] [address] documented as of this encounter Procedures Procedure [...] left documented in this encounter Care Teams Manager Mail Relationship Specialty Start Date End Date Luis E Narayan MD [facility] DR LILI WALKER[facility]FAMILY MEDICINE [place], [place] [phone] PCP - General Family Medicine 03/26/19 01/19/22 documented as of this encounter
--- OUTSIDE RECORDS SUMMARY | 2024-04-15 15:54 | XMS_ITS | Encounter Summary ---
Author Organization [facility] Address [facility] [place] [address] Care Team Providers Care Sales Data Analyst Name Role Phone Luis E Narayan MD Primary Care Provider +1- [phone] Reason for Visit * Reason Onset Date Comments Medication Refill 06/04/2021 Encounter Details Date Type Department Care Team (Late st Contact Info) Description 06/04/2021 Refill Family Medicine at [facility] [address] [place] [address] Luis E Narayan MD [facility] [place] [address] Essential hypertension Social History Tobacco Use Types [...] slept in a intermediate (including now)? No 02/03/2021 Sex and Gender [...] 05/01/2024 11:20 AM EDT Appointment Mammography/[place] [address] Rodney Padilla MD 05/01/2024 1:45 PM EDT Office [place] [address] Juanpablo Hernandez MD [facility] [place] [address] 05/23/2024 2:45 PM EST Clinical Support Family Medicine at [facility] [address] [place] [address] Julia Low, [facility] 01/30/2025 1:30 PM EDT Laboratory Appointment Lab at [facility] Hematology Oncology [address] [place] [address] 01/30/2025 3:[address] [place] [address] Arturo Cordero MD [facility] DR [place] [address] 01/30/2025 4:15 PM EDT Office Visit Hematology [place] [address] Arturo Cordero MD [facility] [address] [place] [address] documented as of this encounter Visit Diagnoses Diagnosis Essential hypertension Unspecified essential hypertension documented in this encounter Care Teams Sales Data Analyst Relationship Specialty Start Date End Date Luis E Narayan MD [facility] [place] [address] PCP - General Family Medicine 03/26/19 01/19/22 documented as of this encounter
--- OUTSIDE RECORDS SUMMARY | 2024-04-15 15:54 | XMS_ITS | Encounter Summary ---
Author Organization [facility] [place] [address] Care Team Providers Care Court Deputy Name Role Phone Luis E Narayan MD Primary Care Provider Encounter Details Date Type Department Care Team (Late st Contact Info) Description 06/22/2021 Telephone Internal Medicine at [facility] [address] [place] [address] Shea Rodas Social History Tobacco Use Types [...] 05/01/2024 11:20 AM EDT Appointment Mammography/[place] [address] Rodney Padilla MD 05/01/2024 1:45 PM EDT Office [place] [address] Juanpablo Hernandez MD [facility] [place] [address] 05/23/2024 2:45 PM EST Clinical Support Family Medicine at [facility] [address] [place] [address] Julia Low, [facility] 01/30/2025 1:30 PM EDT Laboratory Appointment Lab at [facility] Hematology Oncology [address] [place] [address] 01/30/2025 3:[address] [place] [address] Arturo Cordero MD [facility] [place]ATOLOGY [place] [address] 01/30/2025 4:15 PM EDT Office Visit Hematology [place] [address] Arturo Cordero MD [facility] [address] [place]AT[place] [address] documented as of this encounter Visit Diagnoses Not on filedocumented in this encounter Care Teams Court Deputy Relationship Specialty Start Date End Date Luis E Narayan MD [facility] [address] [place] [address] PCP - General Family Medicine 03/26/19 01/19/22 documented as of this encounter
--- OUTSIDE RECORDS SUMMARY | 2024-04-15 15:54 | XMS_ITS | Encounter Summary ---
Author Organization [facility] [place] [address] Care Team Providers Care Panelboard Assembler Name Role Phone Luis E Narayan MD Primary Care Provider +1- [phone] Reason for Visit * Reason Comments Leg Swelling Both sides Encounter Details Date Type Department Care Team (Latest Contact Info) Description 08/20/2021 10:40 AM EST Office Visit Family Medicine at [facility] [address] [place] [address] Hair Kelly [place] [address] Edema of lower extremity; Primary osteoarthritis of [...] Diagnosis Code ??? 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 Altered [...] 30 tablet 3 ??? FreeStyle Sanjana 2 [place] Misc 1 each by Other route daily. [...] 0 ??? fluticasone propionate (FLONASE) 50 mcg/actuation [place], Suspension 1 spray by Each Nare route [...] 05/01/2024 11:20 AM EDT Appointment Mammography/[place] [address] Rodney Padilla MD 05/01/2024 1:45 PM EDT Office [place] [address] Juanpablo Hernandez MD [facility] [place] [address] 05/23/2024 2:45 PM EST Clinical Support Family Medicine at [facility] [address] [place] [address] uJlia Low RPH 01/30/2025 1:30 PM EDT Laboratory Appointment Lab at [facility] Hematology Oncology [address] [place] [address] 01/30/2025 3:[address] [place] [address] Arturo Cordero MD [facility] [place] [address] 01/30/2025 4:15 PM EDT Office Visit Hematology [place] [address] Arturo Cordero MD [facility] [place] [address] documented as of this encounter Visit Diagnoses Diagnosis Edema of lower extremity Edema Primary osteoarthritis of both knees Primary localized osteoarthrosis, lower leg documented in this encounter Care Teams Panelboard Assembler Relationship Specialty Start Date End Date Luis E Narayan MD [facility] [address] [place] [address] PCP - General Family Medicine 03/26/19 01/19/22 documented as of this encounter
--- OUTSIDE RECORDS SUMMARY | 2024-04-15 15:54 | XMS_ITS | Encounter Summary ---
Author Organization [facility] Address [facility] [place] [address] Care Team Providers Care Metal Casket Assembler Name Role Phone Luis E Narayan MD Primary Care Provider +1- [phone] Reason for Visit * Reason Onset Date Comments Medication Refill 08/02/2021 Encounter Details Date Type Department Care Team (Late st Contact Info) Description 08/02/2021 Refill Family Medicine at [facility] [address] [place] [address] Luis E Narayan MD [facility] DR [address] [place] [address] Social History Tobacco Use Types Packs/Day Years [...] 05/01/2024 11:20 AM EDT Appointment Mammography/[place] [address] Rodney Padilla MD 05/01/2024 1:45 PM EDT Office [place] [address] Juanpablo Hernandez MD [facility] [place] [address] 05/23/2024 2:45 PM EST Clinical Support Family Medicine at [facility] [address] [place] [address] Julia Low [facility] 01/30/2025 1:30 PM EDT Laboratory Appointment Lab at [facility] Hematology Oncology [address] [place] [address] 01/30/2025 3:[address] [place] [address] Arturo Cordero MD [facility] H[place]ATOLOG[place] [address] 01/30/2025 4:15 PM EDT Office Visit Hematology [place] [address] Arturo Cordero MD [facility] [place]AT[place] [address] documented as of this encounter Visit Diagnoses Not on filedocumented in this encounter Care Teams Metal Casket Assembler Relationship Specialty Start Date End Date Luis E Narayan MD [facility] [address] [place] [address] PCP - General Family Medicine 03/26/19 01/19/22 documented as of this encounter
--- OUTSIDE RECORDS SUMMARY | 2024-04-15 15:54 | XMS_ITS | Encounter Summary ---
Author Organization [facility] Address [facility] [place] [address] Care Team Providers Care College Intern Name Role Phone Luis E Narayan MD Primary Care Provider +1- [phone] Reason for Visit * Reason Comments Diabetes Encounter Details Date Type Department Care Team (Late st Contact Info) Description 08/06/2021 11:00 AM EST TH Visit (TeleHealth) Family Medicine at [facility] [address] [place] [address] Julia Low, [facility] Type 2 diabetes mellitus without long-term [...] antithrombotic long-term use, Arthritis, Asthma, Atherosclerosis of yurok 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 [...] # of Missed doses/week None - Uses Zuvvu drug - rx insurance [facility] [id number] - Needs testing supplies - would prefer oral therapies to injections although admits she could learn to take an injectable med Medication changes made at last visit: ?? Continue metformin 1000 mg BID ?? Sent testing supplies to [employer] ?? Will recommend Ozempic 0.25 mg once [...] cause hypoglycemia in the afternoon SMBG: Prescribed [facility] Sanjana C[facility] But still can not find. [...] not want to eat every day Lunch: Islandia with ham/turkey wallisian cheese crisostomo and mustard with Doritos Dinner: [...] area transportation options [] Languages other than Puerto Rican: White Metal Caster services provided No [] Allowances for cultural diversity: meal plan will be tailored for cultural food shavon [] Hearing: Pelletizer provided No [] Vision impaired: print augmentation [...] 0 ??? fluticasone propionate (FLONASE) 50 mcg/actuation [place], Suspension 1 spray by Each Nare [...] 06/24/2011 Prescription Insurance: [facility] [id number] Assessment and Recommendations: 1. Diabetes Goals of [...] for the individual, but in general the [place] [employer] recommends a fasting blood sugar [...] were made at the appointment and that [facility] is providing recommendations (summary located at top of note) for provider review and follow up. Julia Low RPH 08/06/21 documented in this encounter Plan of Treatment Upcoming Encounters Date Type Department Care Team (Late st Contact Info) Description 05/01/2024 11:20 AM EDT Appointment Mammography/DXA at [place] [phone] Rodney Padilla MD 05/01/2024 1:45 PM EDT Office Visit Ophthalmology at [place] [phone] Juanpablo Hernandez MD [facility] [place] [address] 05/23/2024 2:45 PM EST Clinical Support Family Medicine at [place] [address] [place] [address] Julia Low, [facility] 01/30/2025 1:30 PM EDT Laboratory Appointment Lab at [facility] Hematology Oncology [address] [place] [address] 01/30/2025 3:[address] [place] [phone] Arturo Cordero MD [facility] DR [place] [address] 01/30/2025 4:15 PM EDT Office Visit Hematology [place] [phone] Arturo Cordero MD [facility] DR [place] [address] documented as of this encounter Visit Diagnoses Diagnosis Type 2 diabetes mellitus without long-term current use of insulin- Primary documented in this encounter Care Teams College Intern Relationship Specialty Start Date End Date Luis E Narayan MD [facility] DR LIL[facility] [place] [address] PCP - General Family Medicine 03/26/19 01/19/22 documented as of this encounter
--- OUTSIDE RECORDS SUMMARY | 2024-04-15 15:54 | XMS_ITS | Encounter Summary ---
Author Organization [facility] [place] [address] Care Team Providers Care Lawyer Real Estate Name Role Phone Luis E Narayan MD Primary Care Provider Encounter Details Date Type Department Care Team (Latest Contact Info) Description 07/27/2021 7:42 AM EST - 07/27/2021 11:59 PM EST Hospital Encounter Mammography/[place] [address] Luis E Narayan MD [facility] DR LIL[facility] [place] [address] Visit for screening mammogram Discharge Disposition: Home [...] tablet 1 01/08/2021 08/02/2021 FreeStyle Sanjana 2 [place] MiscIndications:diabetes mellitus 1 each by Other route [...] 09/15/2020 09/19/2023 fluticasone propionate (FLONASE) 50 mcg/actuation [place], Suspension 1 spray by Each Nare route [...] 05/01/2024 11:20 AM EDT Appointment Mammography/[place] [address] Rodney Padilla MD 05/01/2024 1:45 PM EDT Office [place] [phone] Juanpablo Hernandez MD [facility] [place] [address] 05/23/2024 2:45 PM EST Clinical Support Family Medicine at [facility] [address] [place] [phone] Julia Low Bacilio 01/30/2025 1:30 PM EDT Laboratory Appointment Lab at [facility] Hematology Oncology [address] [place] [address] 01/30/2025 3:[address] [place] [address] Arturo Cordero MD [facility] DR [place] [address] 01/30/2025 4:15 PM EDT Office Visit Hematology [place] [address] Arturo Cordero MD [facility] [place] [address] documented as of this encounter Procedures Procedure [...] mammogram documented in this encounter Care Teams Lawyer Real Estate Relationship Specialty Start Date End Date Luis E Narayan MD [facility] [address] [place] [address] PCP - General Family Medicine 03/26/19 01/19/22 documented as of this encounter
--- OUTSIDE RECORDS SUMMARY | 2024-04-15 15:54 | XMS_ITS | Encounter Summary ---
Author Organization [facility] [place] [address] Care Team Providers Care Technical Writer And Editor Name Role Phone Luis E Narayan MD Primary Care Provider +1- [phone] Encounter Details Date Type Department Care Team (Latest Contact Info) Description 06/24/2021 12:43 PM EST - 06/24/2021 11:59 PM EST Hospital Encounter Hematology [place] [address] Malignant melanoma of conjunctiva, left; History of [...] tablet 1 01/08/2021 08/02/2021 FreeStyle Sanjana 2 [place] MiscIndications:diabetes mellitus 1 each by Other route [...] 09/15/2020 09/19/2023 fluticasone propionate (FLONASE) 50 mcg/actuation [place], Suspension 1 spray by Each Nare route [...] 05/01/2024 11:20 AM EDT Appointment Mammography/[place] [address] Rodney Padilla MD 05/01/2024 1:45 PM EDT Office [place] [phone] Juanpablo Hernandez MD [facility] [place] [address] 05/23/2024 2:45 PM EST Clinical Support Family Medicine at [facility] [address] [place] [address] Julia Low, [facility] 01/30/2025 1:30 PM EDT Laboratory Appointment Lab at [facility] Hematology Oncology [address] [place] [address] 01/30/2025 3:[address] [place] [phone] Arturo Cordero MD [facility] [address] [place] [address] 01/30/2025 4:15 PM EDT Office Visit Hematology and Oncology at [facility] [place] [address] Arturo Cordero MD [facility] DR [place] [address] documented as of this encounter Procedures Procedure [...] 12:52 PM EST) Neutrophil % 62.0 % [facility] Neutrophil Absolute 5.24 1.70 - 6.10 x10(3)/[facility] LABOR[facility] Lymph % 27.4 % [facility] Lymphocytes Abs 2.3 0.9 - 3.2 x10(3)/[facility] LAB[facility] Monocyte % 8.0 % [facility] Monocyte Abs 0.7 0.3 - 0.9 x10(3)/[facility] LAB[facility] Eos % 1.4 % [facility] Eosinophils Abs 0.1 0.0 - 0.4 x10(3)/[facility] LABOR[facility] Basophil % 0.8 % [facility] Baso Absolute 0.1 0.0 - 0.1 x10(3)/[facility] LABOR[facility]ORY Immature Gran % 0.40 % [facility] Comment: Immature granulocytes(IG's)percentage and absolute count will include metamyelocytes, myelocytes, and promyelocytes. Blood smears from CBCs yielding IG's will be scanned manually for concordance. If this scan disagrees with the automated IG or if promyelocytes are noted, a manual differential will be performed. Immature Gran Absolute 0.03 0.00 - 0.04 x10(3)/[facility] LABORATORY Blood 06/24/2021 12:5 2 PM EST 06/24/2021 1:02 PM EST Narrative Resulting Agency Comment Spec In Lab Leandra Lopes RAG ROOM SUPERVISOR HEMATOLOGY ORDERAB LES Performing Organization Address City/State/[facility] Co de Phone Number [facility] [place] [address] * (ABNORMAL) Hemogram (06/24/2021 12:52 PM EST) White Blood Cell 8.5 4.0 - 9.5 x10(3)/mc L [facility] Red Blood Cell 4.74 4.00 - 5.21 x10(6)/mc L [facility] Hemoglobin 13.9 11.7 - 15.5 g/dL [facility] Hematocrit 40.8 35.7 - 45.8 % [facility] Mean Cell Volume 86.1 82.6 - 94.4 fL [facility] Mean Cell Hemoglobin 29.3 27.1 - 32.0 pg [facility] Mean Cell Hemoglobin Concentration 34.1 31.7 - 35.0 g/dL [facility] Platelet 393(H) 145 - 357 x10(3)/ L [facility] RDW Standard Deviation 43.5 37.0 - 46.0 fL [facility] RDW coefficient of variation 13.7 11.5 - 14.1 % [facility] Mean Platelet Volume 9.0 7.6 - 12.9 fL [facility] NRBC% auto 0.0 % [facility] NRBC Absolute 0.000 0.000 - 0.000 x10(3)/mc L [facility] Blood 06/24/2021 12:5 2 PM EST 06/24/2021 1:02 PM EST Narrative Resulting Agency Comment Spec In Lab Leandra Lopes APRN HEMATOLOGY ORDERAB LES [facility] [place] [address] * (ABNORMAL) Comprehensive metabolic panel (non-fasting) (06/24/2021 12:52 PM EST) Glucose 185 65 - 199 mg/dL [facility] Comment:Diabetes: >=200 mg/d L plus symptoms Blood Urea Nitrogen 12 8 - 18 mg/dL [facility] Creatinine 0.91 0.70 - 1.20 mg/dL [facility] Sodium 140 135 - 145 mmol/L [facility] Potassium 4.2 3.5 - 5.0 mmol/L [facility] Comment: Please note: ??Patients with WBC >100,000 may have falsely elevated Potassium levels. ??For accurate Potassium quantification in these patients send serum separator tube (gold top) for subsequent determinations. ??Contact the Clinical Chemistry Laboratory if there are any questions. Chloride 104 98 - 107 mmol/L [facility] Carbon Dioxide 25 22 - 31 mmol/L [facility] Anion Gap 11 5 - 15 mmol/L [facility] Calcium 9.6 8.5 - 10.5 mg/dL [facility] Protein, Total 6.9 6.1 - 8.0 g/dL [facility] Albumin 4.3 3.2 - 5.2 g/dL [facility] Aspartate Aminotransferase 27 0 - 30 unit/L [facility] Alanine Aminotransferase 34(H) 0 - 30 unit/L [facility] Alkaline Phosphatase 93 35 - 105 unit/L [facility] Bilirubin, Total 0.3 0.2 - 1.3 mg/dL [facility] Est Glomerular Filtration Rate 68 >=60 mL/min/1. 73 m?? [facility] Comment: This patient? s estimated [...] APRN CHEMISTRY ORDERABL ES Performing Organization Address [facility] Co de Phone Number [facility] [place] [address] * Lactate Dehydrogenase (06/24/2021 12:52 PM EST) Lactate Dehydrogenase 215 110 - 220 unit/L [facility] Blood 06/24/2021 12:5 2 PM EST 06/24/2021 1:02 PM EST Narrative Resulting Agency Comment Spec In Lab Leandra Lopes APRN CHEMISTRY ORDERABL ES Performing Organization Address [facility]/ZIP Co de Phone Number [facility] [place] [address] documented in this encounter Visit Diagnoses Diagnosis Malignant melanoma of conjunctiva, left History of renal cell cancer documented in this encounter Care Teams Technical Writer And Editor Relationship Specialty Start Date End Date Luis E Narayan MD [facility] [address] [place] [address] PCP - General Family Medicine 03/26/19 01/19/22 documented as of this encounter
--- OUTSIDE RECORDS SUMMARY | 2024-04-15 15:54 | XMS_ITS | Encounter Summary ---
Author Organization [facility] [place] [address] Care Team Providers Care Desk Assistant Name Role Phone Luis E Narayan MD Primary Care Provider +1- [phone] Encounter Details Date Type Department Care Team (Latest Contact Info) Description 06/08/2021 10:16 AM EST - 06/08/2021 11:59 PM [facility] Hospital [place] [address] Janessa aDvies, CNC OPERATOR [facility] DR L[facility] [place] [address] Right upper quadrant pain Discharge Disposition: Home [...] slept in a assisted (including now)? No 02/03/2021 Sex and Gender [...] tablet 1 01/08/2021 08/02/2021 FreeStyle Sanjana 2 [place] MiscIndications:diabe escobar mellitus 1 each by Other [...] 09/15/2020 09/19/2023 fluticasone propionate (FLONASE) 50 mcg/actuation [place], Suspension 1 spray by Each Nare route [...] 05/01/2024 11:20 AM EDT Appointment Mammography/[place] [address] Rodney Padilla MD 05/01/2024 1:45 PM EDT Office Visit Ophthalmology at [place] [phone] Juanpablo Hernandez MD [facility] [place] [address] 05/23/2024 2:45 PM EST Clinical Support Family Medicine at [address] [phone] Julia Low, [facility] 01/30/2025 1:30 PM EDT Laboratory Appointment Lab at [facility] Hematology Oncology [address] [place] [address] 01/30/2025 3:[address] [place] [address] Arturo Cordero MD [facility] DR [place] [address] 01/30/2025 4:15 PM EDT Office Visit Hematology [place] [address] Arturo Cordero MD [facility] [address] [place] [address] documented as of this encounter Procedures Procedure [...] pancreas. Electronically signed by: Nakia Goetz MD, [facility] ([phone]), at 06/08/2021 12:00 PM Thank you for letting us participate in the care of this patient. If you are a health care provider and have any questions regarding this report, please contact the number above. For patients who have questions, please contact the health ocular care technologist that requested your imaging first. ? Nakia Goetz, Staff Physician Electronically Signed Final Report ?? 06/08/2021 12:08 pm Narrative 06/08/2021 12:09 PM EST Abdominal ? (Signed Final 06/08/2021 12:08 pm) PATIENT INFO: ID #: ? [id number] ?: ??58 (60 yrs)(F) Name: ? PATIENCE MANJARREZ ? Visit Date: 06/08/2021 11:00 am PERFORMED BY: Performed By: ? Vaughn Marcial RDMS Attending: ?Sofy COLVIN, Nakia Andrade Referred By: ?JANESSA DAVIES Location: ? [place] SERVICE(S) PROVIDED: UABDLIM - Abdominal Limited Survey Single ? 08376 Organ or Quadrant - [id number] INDICATIONS: RUQ pain, postprandial with fats COMPARISON: [...] 06/08/2021 12:08 pm) PATIENT INFO: ID #: [id number] : 58 (60 yrs)(F) Name: PATIENCE MANJARREZ Visit Date: 06/08/2021 11:00 am PERFORMED BY: Performed By: Vaughn Marcial RDMS Attending: Nakia Goetz MD Referred By: JANESSA DAVIES Location: [place] SERVICE(S) PROVIDED: UABDLIM - Abdominal Limited Survey Single 70943 Organ or Quadrant - [id number] INDICATIONS: RUQ pain, postprandial with fats COMPARISON: [...] who have questions, please contact the health ocular care technologist that requested your imaging first. Nakia Goetz, Staff Physician Electronically Signed Final Report 06/08/2021 12:08 pm Janessa Davies APRN IMG US GEN ORDERABLE S documented in this encounter Visit Diagnoses Diagnosis Right upper quadrant pain Abdominal pain, right upper quadrant documented in this encounter Care Teams Desk Assistant Relationship Specialty Start Date End Date Luis E Narayan MD [facility] [address] [place] [address] PCP - General Family Medicine 03/26/19 01/19/22 documented as of this encounter
--- OUTSIDE RECORDS SUMMARY | 2024-04-15 15:54 | XMS_ITS | Encounter Summary ---
Author Organization Replaced By [facility] Address [facility] [place] [address] Care Team Providers Care Guest Services Coordinator Name Role Phone Daryn Garrett MD Primary Care Provider Reason for Visit * Reason Onset Date Comments Medication Refill 09/08/2021 Encounter Details Date Type Department Care Team (Late st Contact Info) Description 09/08/2021 Refill Family Medicine at [facility] [address] [place] [address] Luis E Narayan MD [facility] DR [address] [place] [address] Social History Tobacco Use Types Packs/Day Years [...] AM EDT Appointment Mammography/[place] [address] Rodney Padilla MD 05/01/2024 1:45 PM EDT Office [place] [address] Juanpablo Hernandez MD [facility] [place] [address] 05/23/2024 2:45 PM EST Clinical Support Family Medicine at [facility] [address] [place] [address] Julia Low [facility] 01/30/2025 1:30 PM EDT Laboratory Appointment Lab at [facility] Hematology Oncology [address] [place] [address] 01/30/2025 3:[address] [place] [address] Arturo Cordero MD [facility] [place] [address] 01/30/2025 4:15 PM EDT Office Visit Hematology [place] [address] Arturo Cordero MD [facility] [place] [address] documented as of this encounter Visit Diagnoses Not on filedocumented in this encounter Care Teams Guest Services Coordinator Relationship Specialty Start Date End Date Daryn Garrett MD [facility] [address] PCP - General 04/10/24 documented as of this encounter
--- OUTSIDE RECORDS SUMMARY | 2024-04-15 15:54 | XMS_ITS | Encounter Summary ---
Author Organization [facility] Address [facility] [place] [address] Care Team Providers Care Parent Educator Name Role Phone Luis E Narayan MD Primary Care Provider +1- [phone] Reason for Visit * Reason Onset Date Comments Medication Refill 09/07/2021 Encounter Details Date Type Department Care Team (Late st Contact Info) Description 09/07/2021 Refill Family Medicine at [facility] [address] [place] [address] Luis E Narayan MD [facility] DR LILI [place]EV[place] [address] Social History Tobacco Use Types Packs/Day Years [...] Refills ??? fluticasone propionate (Flonase) 50 mcg/actuation [place], Suspension 16 g 11 Si spray by Each Nare route 2 times daily. Last office visit: seen today for teleheatlh with Yocasta Low Last refill: 08/04/2020 documented in this encounter Plan of Treatment Upcoming Encounters Date Type Department Care Team (Late st Contact Info) Description 05/01/2024 11:20 AM EDT Appointment Mammography/[place] [address] Rodney Padilla MD 05/01/2024 1:45 PM EDT Office [place] [address] Juanpablo Hernandez MD [facility] [place] [address] 05/23/2024 2:45 PM EST Clinical Support Family Medicine at [facility] [address] [place] [address] [facility] 01/30/2025 1:30 PM EDT Laboratory Appointment Lab at [facility] Hematology Oncology [address] [place] [address] 01/30/2025 3:[address] [place] [address] Arturo Cordero MD [facility] HEMATOLOGY [place] [address] 01/30/2025 4:15 PM EDT Office Visit Hematology [place] [address] Arturo Cordero MD [facility] DR HEMATOLOGY [place] [address] documented as of this encounter Visit Diagnoses Not on filedocumented in this encounter Care Teams Parent Educator Relationship Specialty Start Date End Date Luis E Narayan MD [facility] DR LILI [place]EV[place] [address] PCP - General Family Medicine 03/26/19 01/19/22 documented as of this encounter
--- OUTSIDE RECORDS SUMMARY | 2024-04-15 15:54 | XMS_ITS | Encounter Summary ---
Author Organization [facility] [place] [address] Care Team Providers Care Consular Officer Name Role Phone Luis E Narayan MD Primary Care Provider Encounter Details Date Type Department Care Team (Late st Contact Info) Description 08/19/2021 Telephone Family Medicine at [address] [place] [address] Thomas Tyson, RN Social History Tobacco Use [...] [] Established patient [] Will be in [place] or [place] at time of visit [] Has access to Internet smart phone or computer with camera [] Would need phone visit HTI Screen: MUST be TH [] cough or fever AND Travelled internationally in past month to [facility] or [place] [] COVID-19 symptoms and unvaccinated [...] 05/01/2024 11:20 AM EDT Appointment Mammography/[place] [address] Rodney Padilla MD 05/01/2024 1:45 PM EDT Office Visit Ophthalmology at [place] [phone] Juanpablo Hernandez MD [facility] [place] [address] 05/23/2024 2:45 PM EST Clinical Support Family Medicine at [facility] [address] [place] [address] Julia Low, [facility] 01/30/2025 1:30 PM EDT Laboratory Appointment Lab at [facility] Hematology Oncology [address] [place] [address] 01/30/2025 3:[address] Scan at [place] [phone] Arturo Cordero MD [facility] [place] [address] 01/30/2025 4:15 PM EDT Office Visit Hematology [place] [address] Arturo Cordero MD [facility] [place] [address] documented as of this encounter Visit Diagnoses Not on filedocumented in this encounter Care Teams Consular Officer Relationship Specialty Start Date End Date Luis E Narayan MD [facility] [address] [address] PCP - General Family Medicine 03/26/19 01/19/22 documented as of this encounter
--- OUTSIDE RECORDS SUMMARY | 2024-04-15 15:54 | XMS_ITS | Encounter Summary ---
Author Organization [facility] Address [facility] [place] [address] Care Team Providers Care Manager Stylist Name Role Phone Luis E Narayan MD Primary Care Provider [phone]- [phone] Reason for Visit * Reason Onset Date Comments Medication Refill 08/02/2021 Encounter Details Date Type Department Care Team (Late st Contact Info) Description 08/02/2021 Refill Family Medicine at [facility] [address] [place] [address] Luis E Narayan MD [facility] DR LILI [place] [address] Type 2 diabetes mellitus without long-term current [...] 05/01/2024 11:20 AM EDT Appointment Mammography/[place] [address] Rodney Padilla MD 05/01/2024 1:45 PM EDT Office Visit [place] [address] Juanpablo Hernandez MD [facility] [place] [address] 05/23/2024 2:45 PM EST Clinical Support Family Medicine at [facility] [address] [place] [address] Julia Low [facility] 01/30/2025 1:30 PM EDT Laboratory Appointment Lab at [facility] [place] Oncology [address] [place] [address] 01/30/2025 3:[address] [place] [address] Arturo Cordero MD [facility] DR HEMATOLOGY [place] [address] 01/30/2025 4:15 PM EDT Office Visit Hematology [place] [address] Arturo Cordero MD [facility] H[place]ATOLOGY [place] [address] documented as of this encounter Visit Diagnoses Diagnosis Type 2 diabetes mellitus without long-term current use of insulin documented in this encounter Care Teams Manager Stylist Relationship Specialty Start Date End Date Luis E Narayan MD [facility] [address] [place] [address] PCP - General Family Medicine 03/26/19 01/19/22 documented as of this encounter
--- OUTSIDE RECORDS SUMMARY | 2024-04-15 15:54 | XMS_ITS | Encounter Summary ---
Author Organization [facility] [place] [address] Care Team Providers Care Supervisor Game Farm Name Role Phone Luis E Narayan MD Primary Care Provider Reason for Referral * Diagnostic Test (Routine) - Closed Specialty Diagnoses / Procedures Referred By Contac t Referred To Contact Radiology Diagnoses Malignant melanoma of conjunctiva, left Malignant melanoma, unspecified site Procedures CT Neck Soft Tissue w Contrast (Generic) Leandra Lopes APRN [facility] DR [place] [address] [facility] [place] [address] Referral ID Status Reason Start Date Expiration Date V isits Requested Visits Authorized [id number] Closed Specialty Service Requested 12/23/2021 07/09/2022 1 1 * Diagnostic Test (Routine) - Closed Specialty Diagnoses / Procedures Referred By Contac t Referred To Contact Radiology Diagnoses Malignant melanoma of conjunctiva, left Malignant melanoma, unspecified site Procedures CT Chest Abdomen Pelvis w Contrast (Generic) Leandra Lopes APRN [facility] DR [place] [address] [facility] [place] [address] Referral ID Status Reason Start Date Expiration Date V isits Requested Visits Authorized [id number] Closed Specialty Service Requested 12/23/2021 07/09/2022 1 1 Reason for Visit * Reason Comments Follow-up Encounter Details Date Type Department Care Team (Late st Contact Info) Description 06/24/2021 3:15 PM EST Office Visit Hematology [place] [address] Arturo Cordero MD [facility] DR [place] [address] Dottie Jim MD [facility] [place] [address] Leandra Lopes APRN [facility] [place] [address] Malignant melanoma of conjunctiva, left; Malignant melanoma, [...] the original note were not included. [facility] FOLLOW UP NOTE REFERING PHYSICIAN: Dr. [...] management - fall 2018: saw a new food and beverage controller and was referred to Dr. 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 Medina - 03/31/2020: saw her food and beverage controller Dr. Hernandez and was noted to have [...] is having regular follow ups with her director talent. She continues to smoke, but hopes to [...] uses inhalerswith good effect ??? Atherosclerosis of [place] coronary artery of [place] heart with angina pectoris 10/09/2007 History of [...] performed by Juanpablo Hernandez MD at [facility] ??? PRO EXCIS CORNEA LESN Left 05/14/2020 EXCISION OF LESION, CORNEA, EXCEPT PTERYGIUM (WRVU 7.5) performed by Juanpablo Hernandez MD at [facility] ??? PRO LAP, PARTIAL NEPHRECTOMY Left 06/28/2019 LAPAROSCOPY, PARTIAL NEPHRECTOMY, ROBOTIC ASSIST (WRVU 27.41) performed by Avila Medina MD at [facility] MAIN OR ??? PRO PLACE AMNIOTIC MEMBRANE OCULAR SURFACE;SINGLE LAYER SUTURED Left 05/14/2020 PLACEMENT OF AMNIOTIC MEMBRANE ON THE OCULAR SURFACE,SINGLE LAYER,SUTURED (WRVU 2.5) performed by Juanpablo Hernandez MD at 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 o Sun Exposure: Use broad spectrum, 30 SPF or higher, water resistant sunscreen with reapplication every 2 hours OR SPF clothing and limit your amount of direct sun exposure when possible. o Regular skin and lymph node self-examination should be performed. Please report any new lesions, lumps or bumps of concern to your director talent or oncology team. ? You should be [...] new symptoms or concerns. Leandra Lopes DNP, CONSTRUCTION EQUIPMENT OVERHAULER Return in 3 mos for stand alone US RTC in 6 mos with labs, clinic appointment and CT scan documented in this encounter Plan of Treatment Upcoming Encounters Date Type Department Care Team (Late st Contact Info) Description 05/01/2024 11:20 AM EDT Appointment Mammography/[place] [address] Rodney Padilla MD 05/01/2024 1:45 PM EDT Office Visit [place] [address] Juanpablo Hernandez MD [facility] [place] [address] 05/23/2024 2:45 PM EST Clinical Support Family Medicine at [address] [address] Julia Low, [facility] 01/30/2025 1:30 PM EDT Laboratory Appointment Lab at [facility] Hematology Oncology [address] [place] [address] 01/30/2025 3:[address] [place] [address] Arturo Cordero MD [facility] DR [place] [address] 01/30/2025 4:15 PM EDT Office Visit Hematology [place] [address] Arturo Cordero MD [facility] DR [place] [address] documented as of this encounter Results * [...] questions please contact the health progressive care manager that requested your imaging first. [...] have questions please contactthe health progressive care manager that requested your imaging first. Leandrajohanny Lopes APRN IMG CT ORDERABLES * CT [...] questions please contact the health progressive care manager that requested your imaging first. [...] have questions please contactthe health progressive care manager that requested your imaging first. Leandra Lopes APRN IMG CT ORDERABLES * US Soft [...] who have questions, please contact the health progressive care manager that requested your imaging first. ? Nakia Goetz, Staff Physician Electronically Signed Final Report ?? 11/17/2021 11:59 am Narrative 11/17/2021 12:00 PM EDT Ultrasound Soft Tissue ?(Signed Final 11/17/2021 11:59 am) Neck Left PATIENT INFO: ID #: ? [id number] ?: ??[birth year] (61 yrs)(F) Name: ? PATIENCE MANJARREZ ? Visit Date: 11/17/2021 11:42 am PERFORMED BY: Performed By: ? Diana Lowe RDMS Attending: ?Nakia Goetz MD Referred By: ?LEANDRA LOPES Location: ? [place] SERVICE(S) PROVIDED: USTN - Soft Tissue Neck or Head - [id number] ? [id number] INDICATIONS: History of left eye conjunctival melanoma [...] am) Neck Left PATIENT INFO: ID #: [id number] : 58 (61 yrs)(F) Name: PATIENCE MANJARREZ Visit Date: 11/17/2021 11:42 am PERFORMED BY: Performed By: Diana Lowe RDMS Attending: Nakia Goetz MD Referred By: LEANDRA LOPES Location: [place] SERVICE(S) PROVIDED: USTN - Soft Tissue Neck or Head - [id number] INDICATIONS: History of left eye conjunctival melanoma [...] who have questions, please contact the health progressive care manager that requested your imaging first. Nakia Goetz, [...] site documented in this encounter Care Teams Supervisor Game Farm Relationship Specialty Start Date End Date Luis E Narayan MD [facility] [place] [address] PCP - General Family Medicine 03/26/19 01/19/22 documented as of this encounter
--- OUTSIDE RECORDS SUMMARY | 2024-04-15 15:54 | XMS_ITS | Encounter Summary ---
[place] [address] Care Team Providers Care Motor Vehicles Supervisor Name Role Phone Luis E Narayan MD Primary Care Provider Reason for Visit * Consultation (Routine) - Closed Specialty Diagnoses / Procedures Referred By Gonzalez kumari Referred To Contact Gastroenterology Diagnoses Nonalcoholic hepatosteatosis fatty liver disease Tamera Khan, [facility] DR LILI [place] [address] [facility] [place] [address] [place] [address] Referral ID Status Reason Start Date Expiration Date V isits Requested Visits Authorized [id number] Closed Assume Subset of Care 05/31/2021 05/31/2022 1 1 Encounter Details Date Type Department Care Team (Late st Contact Info) Description 07/16/2021 9:00 AM EST Office [place] [address] Sonia Michel, [facility] [place] [place] [address] NAFLD (nonalcoholic fatty liver disease); [...] HEPATOLOGY NEW PATIENT CONSULTATION Alize Gramajo 1960 ROTARY ENGINE ASSEMBLER: SONIA MICHEL APRN PCP: Luis E Narayan [...] sauce. Had an EGD and Colonoscopy at [facility] this fall, done by Dr. Renetta [...] uses inhalerswith good effect ??? Atherosclerosis of [place] coronary artery of [place] heart with angina pectoris 10/09/2007 History of [...] 11 ??? fluticasone propionate (FLONASE) 50 mcg/actuation [place], Suspension 1 spray by Each Nare [...] Michel APRN Section of Gastroenterology and Hepatology [place] [id number] Copy: Luis E Narayan MD [facility] DR LILI WALKER[facility] / [place] N* documented in this encounter Plan of Treatment Upcoming Encounters Date Type Department Care Team (Late st Contact Info) Description 05/01/2024 11:20 AM EDT Appointment Mammography/[place] [address] Rodney Padilla MD 05/01/2024 1:45 PM EDT Office [place] [address] Juanpablo Hernandez MD [facility] [place] [address] 05/23/2024 2:45 PM EST Clinical Support Family Medicine at [facility] [address] [place] [address] Julia Low [facility] 01/30/2025 1:30 PM EDT Laboratory Appointment Lab at [facility] Hematology Oncology [address] [place] [id number] 01/30/2025 3:[address] [place] [address] Arturo Cordero MD [facility] DR [place] [address] 01/30/2025 4:15 PM EDT Office Visit Hematology and Oncology at [facility] [place] [address] Arturo Cordero MD [facility] DR [place] [address] documented as of this encounter Procedures Procedure [...] Hemoglobin A1c 8.2(H) 4.3 - 5.6 % [facility] [...] Mellitus, Diabetes Care 2013; 36: Suppl. 1, L17-79 Estimated Average Glucose 188 mg/dL [facility] Comment: eAG [...] into estimated average glucose values. ??Diabetes Care 2008:31(8):7719-3783. Blood 07/16/2021 10:0 7 AM EST 07/16/2021 10:13 AM EST Narrative Resulting Agency Comment Spec In Lab Sonia Michel APRN CHEMISTRY ORDERABL ES [facility] [place] [address] * Hepatitis B Surface Antibody (07/16/2021 10:07 AM EST) Hepatitis B Surface Antibody, Quantitative <3.5 IU/L [facility] Comment: HepB Surface Ab Quant: Unvaccinated: < 8.5 IU/L Vaccinated: > 11.5 IU/L Hepatitis B Surface Antibody Negative [facility] Comment: Patient is presumed to be not vaccinated or immune to HBV infection. Expected Results: Vaccinated: Positive Unvaccinated: Negative Blood 07/16/2021 10:0 7 AM EST 07/16/2021 10:13 AM EST Narrative Resulting Agency Comment Spec In Lab Sonia Michel BUSINESS OFFICE DIRECTOR CHEMISTRY ORDERABL ES Performing Organization Address City/[facility]/ZIP Co de Phone Number [facility] [place] [address] * Hepatitis B Surface Antigen (07/16/2021 10:07 AM EST) Hepatitis B Surface Antigen Negative Negative [facility] Blood 07/16/2021 10:0 7 AM EST 07/16/2021 10:13 AM EST Narrative Resulting Agency Comment Spec In Lab Sonia Michel KATHIA CHEMISTRY ORDERABL ES Performing Organization Address [facility] Co de Phone Number [facility] [place] [address] * (ABNORMAL) Ferritin (07/16/2021 10:07 AM EST) Ferritin 27(L) 30 - 400 ng/mL [facility] Comment: Pediatric reference ranges not verified at [facility], interpret with caution. Reference ranges for females greater than 50 years of age approach values for men, i.e., 30-400 ng/mL. Blood 07/16/2021 10:0 7 AM EST 07/16/2021 10:13 AM EST Narrative Resulting Agency Comment Spec In Lab Sonia Michel BUSINESS OFFICE DIRECTOR CHEMISTRY ORDERABL ES Performing Organization Address [facility] Co de Phone Number [facility] [place] [address] * (ABNORMAL) Iron and TIBC (07/16/2021 10:07 AM EST) Iron 46 30 - 150 mcg/dL [facility] TIBC 368 250 - 450 mcg/dL [facility] Iron Saturation 12(L) 20 - 50 % [facility] Blood 07/16/2021 10:0 7 AM EST 07/16/2021 10:13 AM EST Narrative Resulting Agency Comment Spec In Lab Sonia Michel APRN CHEMISTRY ORDERABL ES [facility] [place] [address] * Comprehensive metabolic panel (non-fasting) (07/16/2021 10:07 AM EST) Glucose 169 65 - 199 mg/dL [facility] Comment:Diabetes: >=200 mg/d L plus symptoms Blood Urea Nitrogen 14 8 - 18 mg/dL [facility] Creatinine 0.81 0.70 - 1.20 mg/dL [facility] Sodium 140 135 - 145 mmol/L [facility] Potassium 4.6 3.5 - 5.0 mmol/L [facility] Comment: Please note: ??Patients with WBC >100,000 may have falsely elevated Potassium levels. ??For accurate Potassium quantification in these patients send serum separator tube (gold top) for subsequent determinations. ??Contact the Clinical Chemistry Laboratory if there are any questions. Chloride 102 98 - 107 mmol/L [facility] Carbon Dioxide 28 22 - 31 mmol/L [facility] Anion Gap 10 5 - 15 mmol/L [facility] Calcium 9.8 8.5 - 10.5 mg/dL [facility] Protein, Total 7.1 6.1 - 8.0 g/dL [facility] Albumin 4.4 3.2 - 5.2 g/dL [facility] Aspartate Aminotransferase 18 0 - 30 unit/L [facility] Alanine Aminotransferase 26 0 - 30 unit/L [facility] Alkaline Phosphatase 102 35 - 105 unit/L [facility] Bilirubin, Total 0.3 0.2 - 1.3 mg/dL [facility] Est Glomerular Filtration Rate 78 >=60 mL/min/1. 73 m?? [facility] [...] Lab Sonia Michel APRN CHEMISTRY ORDERABL ES [facility] [place] [address] documented in this encounter Visit Diagnoses Diagnosis NAFLD (nonalcoholic fatty liver disease) Other chronic nonalcoholic liver disease Type 2 diabetes mellitus without complication, without long-term current use of insulin documented in this encounter Care Teams Motor Vehicles Supervisor Relationship Specialty Start Date End Date Luis E Narayan MD [facility] DR LILI [facility] [place] [phone] PCP - General Family Medicine 03/26/19 01/19/22 documented as of this encounter
--- OUTSIDE RECORDS SUMMARY | 2024-04-15 15:54 | XMS_ITS | Encounter Summary ---
Author Organization [facility] Address [facility] [place] [address] Care Team Providers Care Shape Carver Name Role Phone Luis E Narayan MD Primary Care Provider [phone]- [phone] Reason for Visit * Reason Onset Date Comments Prior Authorization 08/06/2021 Ozempic (0.2 5 or 0.5 MG/DOSE) 2MG/1.5ML pen-injectors Encounter Details Date Type Department Care Team (Late st Contact Info) Description 08/06/2021 Telephone Family Medicine at [facility] [address] [place] [address] Aida Aguayo, [facility] Prior Authorization (Ozempic (0.25 or 0.5 MG/DOSE) [...] Awaiting response from insurance. [employer] Anderson: [id number] * Telephone Encounter - Aida Aguayo MA - 08/06/2021 2:08 PM EST PA submitted. Awaiting response from insurance. * Telephone Encounter - Aida Aguayo MA - 08/06/2021 1:55 PM EST Medication Prior Authorization Request received via: [facility] Patient: Alize Gramajo Patient : 1960 Insurance Company: [employer] Medicaid Sent via: [facility] Anderson: [id number] Physician: Luis E Narayan MD Medication Requested: [...] AM EDT Appointment Mammography/[place] [address] Rodney Padilla MD 05/01/2024 1:45 PM EDT Office [place] [address] Juanpablo Hernandez MD [facility] [place] [address] 05/23/2024 2:45 PM EST Clinical Support Family Medicine at [facility] [address] [place] [address] Julia Low, [facility] 01/30/2025 1:30 PM EDT Laboratory Appointment Lab at [facility] Hematology Oncology [address] [place] [address] 01/30/2025 3:[address] [place] [address] Arturo Cordero MD [facility] [place] [address] 01/30/2025 4:15 PM EDT Office Visit [place]ematology [place] [address] Arturo Cordero MD [facility] DR [place] [address] documented as of this encounter Visit Diagnoses Not on filedocumented in this encounter Care Teams Shape Carver Relationship Specialty Start Date End Date Luis E Narayan MD [facility] DR LILI [place] [address] PCP - General Family Medicine 03/26/19 01/19/22 documented as of this encounter
--- OUTSIDE RECORDS SUMMARY | 2024-04-15 15:54 | XMS_ITS | Encounter Summary ---
Author Organization [facility] Address [facility] [place] [address] Care Team Providers Care Physician'S Assistant Name Role Phone Luis E Narayan MD Primary Care Provider [phone] Reason for Visit * Reason Comments Diabetes * Consultation (Routine) - Closed Specialty Diagnoses / Procedures Referred By Gonzalez kumari Referred To Contact Family Medicine Diagnoses Type 2 diabetes mellitus with other specified complication, without long-term current use of insulin Tamera Khan, ECHO VASC TECH [facility] DR LILI WALKER-[place] [address] Julia Low [facility] Referral ID Status Reason Start Date Expiration Date V isits Requested Visits Authorized [id number] Closed Assume Subset of Care 06/14/2021 06/14/2022 1 1 Encounter Details Date Type Department Care Team (Late st Contact Info) Description 07/27/2021 11:00 AM EST Clinical Support Family Medicine at [facility] [address] [place] [address] Julia Low [facility] Type 2 diabetes mellitus without [...] mg BID ?? Sent testing supplies to [employer] ?? Will recommend Ozempic 0.25 mg once [...] antithrombotic long-term use, Arthritis, Asthma, Atherosclerosis of [place] 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 [...] # of Missed doses/week None - Uses [employer] drug - rx insurance [facility] [id number] - Needs testing supplies - would prefer [...] not want to eat every day Lunch: [place] with ham/turkey kittitian cheese crisostomo and mustard with Doritos Dinner: [...] area transportation options [] Languages other than [place]ian: Rn Forensic services provided No [] Allowances for cultural diversity: meal plan will be tailored for cultural food shavon [] Hearing: Sap Security Architect provided No [] Vision impaired: print augmentation [...] 180 tablet 1 ??? FreeStyle Sanjana 2 [place] Misc 1 each by Other route daily. [...] 0 ??? fluticasone propionate (FLONASE) 50 mcg/actuation [place], Suspension 1 spray by Each Nare route [...] TDAP 04/09/2019 , 06/24/2011 Prescription Insurance: [facility] [id number] Assessment and Recommendations: 1. Diabetes Goals of [...] for the individual, but in general the [place] Diabetes Association recommends a fasting blood sugar [...] mg BID ?? Sent testing supplies to [employer] ?? Will recommend Ozempic 0.25 mg once [...] at the appointment and that [facility] is providing recommendations (summary located at top of note) for provider review and follow up. Julia Low RPH 07/27/21 documented in this encounter Plan of Treatment Upcoming Encounters Date Type Department Care Team (Late st Contact Info) Description 05/01/2024 11:20 AM EDT Appointment Mammography/[place] [address] Rodney Padilla MD 05/01/2024 1:45 PM EDT Office [place] [address] Juanpablo Hernandez MD [facility] [place] [address] 05/23/2024 2:45 PM EST Clinical Support Family Medicine at [facility] [address] [place] [address] Julia Low [facility] 01/30/2025 1:30 PM EDT Laboratory Appointment Lab at [facility] Hematology Oncology [address] [place] [address] 01/30/2025 3:[address] [place] [address] Arturo Cordero MD [facility] DR HEMATOLOGY [place] [address] 01/30/2025 4:15 PM EDT Office Visit Hematology [place] [address] Arturo Cordero MD [facility] DR HEMATOLOGY AND ONCOLOGY [place], [place] [phone] documented as of this encounter Visit Diagnoses Diagnosis Type 2 diabetes mellitus without long-term current use of insulin- Primary documented in this encounter Care Teams Physician'S Assistant Relationship Specialty Start Date End Date Luis E Narayan MD [facility] [place] [address] PCP - General Family Medicine 03/26/19 01/19/22 documented as of this encounter
--- OUTSIDE RECORDS SUMMARY | 2024-04-15 15:54 | XMS_ITS | Encounter Summary ---
Author Organization [facility] [place] [address] Care Team Providers Care Obstetrics/Gynecology Nurse Name Role Phone Daryn Garrett MD Primary Care Provider [phone] Reason for Visit * Reason Onset Date Comments Medication Refill 07/02/2021 Encounter Details Date Type Department Care Team (Late st Contact Info) Description 07/02/2021 Refill Family Medicine at [facility] [address] [place] [address] Bonny Emanuel MD [address] [place] [address] Social History Tobacco Use Types Packs/Day Years [...] 05/01/2024 11:20 AM EDT Appointment Mammography/[place] [address] Rodney Padilla MD 05/01/2024 1:45 PM EDT Office [place] [address] Juanpablo Hernandez MD [facility] [place] [address] 05/23/2024 2:45 PM EST Clinical Support Family Medicine at [facility] [address] [place] [address] Julia Low Bacilio 01/30/2025 1:30 PM EDT Laboratory Appointment Lab at [facility] Hematology Oncology [address] [place] [address] 01/30/2025 3:[address] [place] [address] Arturo Cordero MD [facility] [place] [address] 01/30/2025 4:15 PM EDT Office Visit Hematology [place] [address] Arturo Cordero MD [facility] [place] [address] documented as of this encounter Visit Diagnoses Not on filedocumented in this encounter Care Teams Obstetrics/Gynecology Nurse Relationship Specialty Start Date End Date Daryn Garrett MD [facility] DR LIL[place] [address] PCP - General 04/10/24 documented as of this encounter
--- OUTSIDE RECORDS SUMMARY | 2024-04-15 15:54 | XMS_ITS | Encounter Summary ---
Author Organization [facility] Address [facility] [place] [address] Care Team Providers Care Analysis Intern Name Role Phone Luis E Narayan MD Primary Care Provider [phone] Reason for Visit * Reason Onset Date Comments Appointment 08/20/2021 Encounter Details Date Type Department Care Team (Late st Contact Info) Description 08/20/2021 Telephone Family Medicine at [facility] [address] [place] [address] Luis E Narayan MD [facility] DR LILI WALKER-[place] [address] Appointment Social History Tobacco Use Types Packs/Day [...] Silvio Alonzo - 08/20/2021 9:12 AM EST Dinos Rule Message sent to patient * Telephone Encounter - Dixon Billings - 08/20/2021 8:45 AM EST Message: Patient calling in regards to having their appointment for 08.20.21 rescheduled as soon aspossible. Patient states it said in her MyDH that it was changed to a telehealth visit and she received a message stating that it was changed. Scouring Pads Supervisor was unable to find any message and the appointment showed as Office Visit not telehealth. Patient is unable to make it and engineering technical writer was unable to find appointment within timeframe patient was looking for Ask caller their first and last name and relationship to the patient: Alize Gramajo Best time to call back: Any Ok to leave a message: yes Ok to send Atox [employer] message: yes Offered Appointment: Yes MA/Nurse/Brush Polisher contacted via: Message: Yes Call: n/a Pager: n/a documented in this encounter Plan of Treatment Upcoming Encounters Date Type Department Care Team (Late st Contact Info) Description 05/01/2024 11:20 AM EDT Appointment Mammography/DXA at [place] [phone] Rodney Padilla MD 05/01/2024 1:45 PM EDT Office Visit Ophthalmology at [address] Juanpablo Hernandez MD [facility] [place] [address] 05/23/2024 2:45 PM EST Clinical Support Family Medicine at [facility] [address] [place] [address] Julia Low, [facility] 01/30/2025 1:30 PM EDT Laboratory Appointment Lab at [facility] Hematology Oncology [address] [place] [address] 01/30/2025 3:[address] Scan at [place] [phone] Arturo Cordero MD [facility] HEMATOLOGY [place] [address] 01/30/2025 4:15 PM EDT Office Visit Hematology [place] [address] Arturo Cordero MD [facility] HEMATOLOGY [place] [address] documented as of this encounter Visit Diagnoses Not on filedocumented in this encounter Care Teams Analysis Intern Relationship Specialty Start Date End Date Luis E Narayan MD [facility] DR LILI WALKER-[place] [address] PCP - General Family Medicine 03/26/19 01/19/22 documented as of this encounter
--- OUTSIDE RECORDS SUMMARY | 2024-04-15 15:54 | XMS_ITS | Encounter Summary ---
Author Organization [facility] Address [facility] [place] [address] Care Team Providers Care Peeler Operator Name Role Phone Luis E Narayan MD Primary Care Provider [phone]- [phone] Reason for Visit * Reason Onset Date Comments Medication Refill 06/19/2021 Encounter Details Date Type Department Care Team (Late st Contact Info) Description 06/19/2021 Refill Family Medicine at [facility] [address] [place] [address] Luis E Narayan MD [facility] DR LILI WALKER[place] [address] Mixed hyperlipidemia Social History Tobacco Use Types [...] AM EDT Appointment Mammography/[place] [address] Rodney Padilla MD 05/01/2024 1:45 PM EDT [place] [address] Juanpablo Hernandez MD [facility] [place] [address] 05/23/2024 2:45 PM EST Clinical Support Family Medicine at [facility] [address] [place] [address] Julia Low RPH 01/30/2025 1:30 PM EDT Laboratory Appointment Lab at [facility] Hematology Oncology [address] [place] [address] 01/30/2025 3:[address] [place] [place] [address] Arturo Cordero MD [facility] HEMATOLOGY [place] [address] 01/30/2025 4:15 PM EDT Office Visit [place]ology [place] [address] Arturo Cordero MD [facility] HEMATOLOGY [place] [address] documented as of this encounter Visit Diagnoses Diagnosis Mixed hyperlipidemia documented in this encounter Care Teams Peeler Operator Relationship Specialty Start Date End Date Luis E Narayan MD [facility] [address] [place] [address] PCP - General Family Medicine 03/26/19 01/19/22 documented as of this encounter
--- OUTSIDE RECORDS SUMMARY | 2024-04-15 15:54 | XMS_ITS | Encounter Summary ---
Author Organization [facility] Address [facility] [place] [address] Care Team Providers Care Technical Marketing Engineer Name Role Phone Luis E Narayan MD Primary Care Provider [phone]- [phone] Reason for Visit * Reason Comments Diabetes Encounter Details Date Type Department Care Team (Late st Contact Info) Description 08/26/2021 2:30 PM EST TH Visit (TeleHealth) Family Medicine at [facility] [address] [place] [address] Julia Low, [facility] Type 2 diabetes mellitus without [...] Julia Low RPH + Alba Anderson [employer] Chemical Process Equipment Operator Visit Type: Telehealth Phone Diabetes Mellitus (DM) [...] antithrombotic long-term use, Arthritis, Asthma, Atherosclerosis of [place] 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 Lunch: [place] with ham/turkey, Spanish cheese, crisostomo, mustard with Doritos Dinner: Spaghetti [...] area transportation options [] Languages other than [place] Citizen: Transverse Abdominal Muscle Nurse services provided No [] Allowances for cultural diversity: meal plan will be tailored for cultural food shavon [] Hearing: Attorney Lawyer provided No [] Vision impaired: print augmentation [...] 30 tablet 3 ??? FreeStyle Sanjana 2 [place] Misc 1 each by Other route daily. [...] 0 ??? fluticasone propionate (FLONASE) 50 mcg/actuation [place], Suspension 1 spray by Each Nare route [...] 09/07/2005 TDAP 04/09/2019 , 06/24/2011 Prescription Insurance: [facility] [id number] Assessment and Recommendations: 1. Diabetes Goals of [...] for the individual, but in general the [place] Diabetes Association recommends a fasting blood sugar [...] were made at the appointment and that [facility] is providing recommendations (summary located at top of note) for provider review and follow up. Julia Low RPH 09/06/21 documented in this encounter Plan of Treatment Upcoming Encounters Date Type Department Care Team (Late st Contact Info) Description 05/01/2024 11:20 AM EDT Appointment Mammography/[place] [address] Rodney Padilla MD 05/01/2024 1:45 PM EDT [place] [address] Juanpablo Hernandez MD [facility] [place] [place] [address] 05/23/2024 2:45 PM EST Clinical Support Family Medicine at [facility] [address] [place] [address] Julia Low, [facility] 01/30/2025 1:30 PM EDT Laboratory Appointment Lab at [facility] Hematology Oncology [address] [place] [address] 01/30/2025 3:[address] [place] [place] [address] Arturo Cordero MD [facility] [address] [place] [address] 01/30/2025 4:15 PM EDT Office Visit [place]ology [place] [address] Arturo Cordero MD [facility] [place] [address] documented as of this encounter Visit Diagnoses Diagnosis Type 2 diabetes mellitus without long-term current use of insulin documented in this encounter Care Teams Technical Marketing Engineer Relationship Specialty Start Date End Date Luis E Narayan MD [facility] [address] LILI [place] [address] PCP - General Family Medicine 03/26/19 01/19/22 documented as of this encounter
--- OUTSIDE RECORDS SUMMARY | 2024-04-15 15:54 | XMS_ITS | Encounter Summary ---
Author Organization [facility] [place] [address] Care Team Providers Care Knocker Out Name Role Phone Luis E Narayan MD Primary Care Provider [phone]- [phone] Encounter Details Date Type Department Care Team (Late st Contact Info) Description 06/16/2021 Telephone Family Medicine at [address] [place] [address] Thania Flores, RN Social History Tobacco Use [...] check my message. The call backnumber is [phone]. * Telephone Encounter - Thania Flores RN [...] 05/01/2024 11:20 AM EDT Appointment Mammography/[place] [address] Rodney Padilla MD 05/01/2024 1:45 PM EDT Office Visit Ophthalmology at [place] [phone] Juanpablo Hernandez MD [facility] [place] [address] 05/23/2024 2:45 PM EST Clinical Support Family Medicine at [place] [address] [place] [address] Julia Low [facility] 01/30/2025 1:30 PM EDT Laboratory Appointment Lab at [facility] Hematology Oncology [address] [place] [address] 01/30/2025 3:[address] [place] [address] Arturo Cordero MD [facility] DR HEMATOLOGY [place] [address] 01/30/2025 4:15 PM EDT Office Visit Hematology and Oncology at [place] [phone] Arturo Cordero MD [facility] DR [place] [address] documented as of this encounter Visit Diagnoses Not on filedocumented in this encounter Care Teams Knocker Out Relationship Specialty Start Date End Date Luis E Narayan MD [facility] DR LILI W[place] [address] PCP - General Family Medicine 03/26/19 01/19/22 documented as of this encounter
--- OUTSIDE RECORDS SUMMARY | 2024-04-15 15:54 | XMS_ITS | Encounter Summary ---
Author Organization [facility] [place] [address] Care Team Providers Care Clutch Specialist Name Role Phone Luis E Narayan MD Primary Care Provider [phone] Reason for Referral * Consultation (Routine) - Closed Specialty Diagnoses / Procedures Referred By Gonzalez kumari Referred To Contact Family Medicine Diagnoses Type 2 diabetes mellitus with other specified complication, without long-term current use of insulin Tamera Khan APRN [facility] [place] [address] Julia Low, [facility] Referral ID Status Reason Start Date Expiration Date V isits Requested Visits Authorized [id number] Closed Assume Subset of Care 06/14/2021 06/14/2022 [...] PM EST Office Visit Family Medicine at [facility] [address] [place] [address] Celina Narayan MD [facility] [address] LILI WALKER[place], [place] [phone] Diarrhea, unspecified type; Type 2 diabetes mellitus [...] - POCT Fingerstick Glucose - Referral to [facility] (Primary Care Use Only) - POCT [...] the patient in person Pertinent History: Per GASTROENTEROLOGY MANAGER note Pertinent Exam: Per GASTROENTEROLOGY MANAGER note Major issues addressed: Per GASTROENTEROLOGY MANAGER note Plan: Per GASTROENTEROLOGY MANAGER note documented in this encounter Plan of Treatment Upcoming Encounters Date Type Department Care Team (Late st Contact Info) Description 05/01/2024 11:20 AM EDT Appointment Mammography/[place] [address] Rodney Padilla MD 05/01/2024 1:45 PM EDT Office [place] [address] Juanpablo Hernandez MD [facility] [place] [address] 05/23/2024 2:45 PM EST Clinical Support Family Medicine at [facility] [address] [place] [address] Julia Low, [facility] 01/30/2025 1:30 PM EDT Laboratory Appointment Lab at [facility] Hematology Oncology [address] [place] [address] 01/30/2025 3:[address] [place] [address] Arturo Cordero MD [facility] [address] HEMATOLOGY [place] [address] 01/30/2025 4:15 PM EDT Office Visit Hematology [place] [address] Arturo Cordero MD [facility] [address] HEMATOLOGY [place] [address] Scheduled Referrals Name Type Priority Associated Diagnoses Orde r Schedule Referral to [facility] (Primary Care Use Only) Outpatient Referral [...] 100 60 - 199 mg/dl Tamera Khan APRN POINT OF CARE TEST [...] sinus documented in this encounter Care Teams Clutch Specialist Relationship Specialty Start Date End Date Luis E Narayan MD [facility] [address] LILI [place] [address] PCP - General Family Medicine 03/26/19 01/19/22 documented as of this encounter
--- OUTSIDE RECORDS SUMMARY | 2024-04-15 15:55 | XMS_ITS | Encounter Summary ---
[place] [address] Care Team Providers Care Education Administrative Assistant Name Role Phone Luis E Narayan MD Primary Care Provider Reason for Referral * Consultation (Routine) - Closed Specialty Diagnoses / Procedures Referred By Gonzalez kumari Referred To Contact Gastroenterology Diagnoses Nonalcoholic hepatosteatosis fatty liver disease Janessa Davies APRN [facility] [place] [address] [facility] [place] [address] Referral ID Status Reason Start Date Expiration Date V isits Requested Visits Authorized [id number] Closed Assume Subset of Care 05/31/2021 05/31/2022 1 1 * Physical Therapy (Routine) - Closed Specialty Diagnoses / Procedures Referred By Contchrissy kumari Referred To Contact Physical Therapy Diagnoses Right leg pain Janessa Davies APRN [facility] [place] [address] Physical Therapy, [address] [address] Referral ID Status Reason Start Date Expiration Date V isits Requested Visits Authorized [id number] Closed Evaluate and Treat 05/31/2021 11/27/2021 10 10 Reason for Visit * Reason Comments Right Leg Pain Referral Gastro for GERD, Gas tritis and fatty liver diease Other blood work Immunizations influenza vaccine Encounter Details Date Type Department Care Team (Latest Contact Info) Description 05/31/2021 4:00 PM EST Office Visit Family Medicine at [facility] [address] [place] [address] Norman Ochoa Jr., MD [facility] [place] [address] Healthcare maintenance; Type 2 diabetes mellitus with [...] slept in a retirement (including now)? No 02/03/2021 Sex and Gender [...] this encounter Progress Notes * Janessa Davies, [employer] EXAMINER - 05/31/2021 4:00 PM EST Subjective: Patient ID: Patience Manjarrez is a 60 y.o. female. Presenting with abdominal pain and multiple requests. Chief Complaint Patient presents with ??? Right Leg Pain ??? Referral Gastro for GERD, Gastritis and fatty liver diease ??? Other blood work ??? Immunizations influenza vaccine Had colonoscopy, and EGD, in [facility] - Dr. Hart still having issues with [...] lab work Voice-activated software commonly has unintentional precinct police lieutenant errors, especially incorrect pronouns, verb tense, and typographical mistakes. 45 minutes: Chart review, [id number], coordination of care, and documentation. documented in this encounter Plan of Treatment Upcoming Encounters Date Type Department Care Team (Late st Contact Info) Description 05/01/2024 11:20 AM EDT Appointment Mammography/[place] [address] Rodney Padilla MD 05/01/2024 1:45 PM EDT Office [place] [address] Juanpablo Hernandez MD [facility] [address] 05/23/2024 2:45 PM EST Clinical Support Family Medicine at [facility] [address] [place] [address] Julia Low [facility] 01/30/2025 1:30 PM EDT Laboratory Appointment Lab at [facility] Hematology Oncology [address] [place] [address] 01/30/2025 3:[address] [place] [address] Arturo Cordero MD [facility] [place] [address] 01/30/2025 4:15 PM EDT Office Visit Hematology [place] [address] Arturo Cordero MD [facility] [place] [address] Scheduled Referrals Name Type Priority Associated Diagnoses [...] signed by: Nakia Goetz MD, [facility] ([phone]), at 06/08/2021 12:00 PM Thank you for letting us participate in the care of this patient. If you are a health care provider and have any questions regarding this report, please contact the number above. For patients who have questions, please contact the health memory care director that requested your imaging first. ? Nakia Goetz, Staff Physician Electronically Signed Final Report ?? 06/08/2021 12:08 pm Narrative 06/08/2021 12:09 PM EST Abdominal ? (Signed Final 06/08/2021 12:08 pm) PATIENT INFO: ID #: ? [id number] ?: ??[birth year] (60 yrs)(F) Name: ? PATIENCE MANJARREZ ? Visit Date: 06/08/2021 11:00 am PERFORMED BY: Performed By: ? Vaughn Marcial RDMS Attending: ?Sofy COLVIN, Nakia Andrade Referred By: ?JANESSA DAVIES Location: ? [place] SERVICE(S) PROVIDED: UABDLIM - Abdominal Limited Survey Single ? [address] Organ or Quadrant - [id number] INDICATIONS: RUQ pain, postprandial with fats COMPARISON: [...] 06/08/2021 12:08 pm) PATIENT INFO: ID #: [id number] : 58 (60 yrs)(F) Name: PATIENCE MANJARREZ Visit Date: 06/08/2021 11:00 am PERFORMED BY: Performed By: Vaughn Marcial RDMS Attending: Nakia Goetz MD Referred By: JANESSA DAVIES Location: [place] SERVICE(S) PROVIDED: UABDLIM - Abdominal Limited Survey Single [address]47 Organ or Quadrant - [id number] INDICATIONS: RUQ pain, postprandial with fats COMPARISON: [...] signed by: Nakia Goetz MD, [facility] ([phone]), at 06/08/2021 12:00 PM Thank you for letting us participate in the care of this patient. If you are a health care provider and have any questions regarding this report, please contact the number above. For patients who have questions, please contact the health memory care director that requested your imaging first. Nakia Goetz, Staff Physician Electronically Signed Final Report 06/08/2021 12:08 pm Janessa Davies APRN IMG US GEN ORDERABLE S * Differential, Automated (05/31/2021 5:57 PM EST) Neutrophil % 56.6 % [facility] Neutrophil Absolute 5.46 1.70 - 6.10 x10(3)/[facility] Lymph % 33.5 % [facility] Lymphocytes Abs 3.2 0.9 - 3.2 x10(3)/[facility] Monocyte % 7.9 % [facility] Monocyte Abs 0.8 0.3 - 0.9 x10(3)/[facility] Eos % 1.2 % [facility] Eosinophils Abs 0.1 0.0 - 0.4 x10(3)/[facility] Basophil % 0.5 % [facility] Baso Absolute 0.0 0.0 - 0.1 x10(3)/[facility] Immature Gran % 0.30 % [facility] Comment: Immature granulocytes(IG's)percentage and absolute count will include metamyelocytes, myelocytes, and promyelocytes. Blood smears from CBCs yielding IG's will be scanned manually for concordance. If this scan disagrees with the automated IG or if promyelocytes are noted, a manual differential will be performed. Immature Gran Absolute 0.03 0.00 - 0.04 x10(3)/[facility] Blood 05/31/2021 5:57 PM EST 05/31/2021 6:05 PM EST Narrative Resulting Agency Comment Spec In Lab Janessa Huang Bill BAE HEMATOLOGY ORDERABLE S [facility] [place] [address] * (ABNORMAL) Hemogram (05/31/2021 5:57 PM EST) [facility] White Blood Cell 9.6(H) 4.0 - 9.5 x10(3)/mc L [facility] Red Blood Cell 4.62 4.00 - 5.21 x10(6)/mc L [facility] Hemoglobin 13.5 11.7 - 15.5 g/dL [facility] Hematocrit 40.2 35.7 - 45.8 % [facility] Mean Cell Volume 87.0 82.6 - 94.4 fL [facility] Mean Cell Hemoglobin 29.2 27.1 - 32.0 pg [facility] Mean Cell Hemoglobin Concentration 33.6 31.7 - 35.0 g/dL [facility] Platelet 404(H) 145 - 357 x10(3)/mc L [facility] RDW Standard Deviation 43.3 37.0 - 46.0 fL [facility] RDW coefficient of variation 13.6 11.5 - 14.1 % [facility] Mean Platelet Volume 8.8 7.6 - 12.9 fL [facility] NRBC% auto 0.0 % [facility] NRBC Absolute 0.000 0.000 - 0.000 x10(3)/mc L [facility] Blood 05/31/2021 5:57 PM EST 05/31/2021 6:05 PM EST Narrative Resulting Agency Comment Spec In Lab Janessa Sal Bill BAE HEMATOLOGY ORDERABLE S [facility] [place] [address] * Lipase (05/31/2021 5:57 PM EST) Lipase 46 0 - 60 unit/L [facility] Blood 05/31/2021 5:57 PM EST 05/31/2021 6:05 PM EST Narrative Resulting Agency Comment Spec In Lab Janessa Davies KATHIA CHEMISTRY ORDERABLES [facility] [place] [address] * Comprehensive metabolic panel (non-fasting) (05/31/2021 5:57 PM EST) Glucose 154 65 - 199 mg/dL [facility] Comment:Diabetes: >=200 mg/d L plus symptoms Blood Urea Nitrogen 14 8 - 18 mg/dL [facility] Creatinine 0.90 0.70 - 1.20 mg/dL [facility] [...] questions. Chloride 103 98 - 107 mmol/L [facility] Carbon Dioxide 26 22 - 31 mmol/L [facility] Anion Gap 11 5 - 15 mmol/L [facility] Calcium 9.5 8.5 - 10.5 mg/dL [facility] Protein, Total 7.3 6.1 - 8.0 g/dL [facility] Albumin 4.3 3.2 - 5.2 g/dL [facility] Aspartate Aminotransferase 17 0 - 30 unit/L [facility] Alanine Aminotransferase 22 0 - 30 unit/L [facility] Alkaline Phosphatase 104 35 - 105 unit/L [facility] Bilirubin, Total 0.2 0.2 - 1.3 mg/dL [facility] Est Glomerular Filtration Rate 69 >=60 mL/min/1. 73 m?? [facility] Comment: This patient? s [...] In Lab Janessa Davies APRN CHEMISTRY ORDERABLES [facility] [place] [address] * (ABNORMAL) Hemoglobin A1c (05/31/2021 5:57 PM EST) Hemoglobin A1c 7.8(H) 4.3 - 5.6 % [facility] [...] Mellitus, Diabetes Care 2013; 36: Suppl. 1, N51-10 Estimated Average Glucose 178 mg/dL [facility] Comment: eAG [...] into estimated average glucose values. ??Diabetes Care 2008:31(8):2438-8999. Blood 05/31/2021 5:57 PM EST 05/31/2021 6:05 PM EST Narrative Resulting Agency Comment Spec In Lab Janessa Davies APRN CHEMISTRY ORDERABLES [facility] [place] [address] * EKG 12 Lead (05/31/2021 5:16 PM EST) Ventricular rate 68 BPM MUSE SYSTEM Atrial Rate 68 BPM MUSE SYSTEM P-R Interval 180 ms MUSE SYSTEM QRS Duration 92 ms MUSE SYSTEM Q-T Interval 390 ms MUSE SYSTEM QTC Calculated (Bezet) 414 ms MUSE SYSTEM Calculated P [place] 33 degrees MUSE SYSTEM Calculated R [place] 12 degrees MUSE SYSTEM Calculated T [place] 41 degrees MUSE SYSTEM INTERPRETATION Normal sinus rhythm Nonspecific T wave abnormality Abnormal ECG When compared with ECG of 11-SEP-2020 14:20, No significant change was found Confirmed by MD Elsa, Zain Banda ([id number]) on 06/01/2021 9:16:58 AM MUSE SYSTEM 05/31/2021 5:16 PM EST 06/01/2021 9:16 AM EST Janessa Davies APRN ECG ORDERABLES Mytonomy SYSTEM documented in this encounter Visit Diagnoses [...] quadrant documented in this encounter Care Teams Education Administrative Assistant Relationship Specialty Start Date End Date Luis E Narayan MD [facility] [address] [place] [address] PCP - General Family Medicine 03/26/19 01/19/22 documented as of this encounter
--- OUTSIDE RECORDS SUMMARY | 2024-04-15 15:55 | XMS_ITS | Encounter Summary ---
Author Organization [place] [address] Care Team Providers Care Research Geneticist Name Role Phone Luis E Narayan MD Primary Care Provider Reason for Referral * Diagnostic Test (Routine) - Closed Specialty Diagnoses / Procedures Referred By Contac t Referred To Contact Radiology Diagnoses Malignant melanoma of conjunctiva, left Procedures CT Neck Soft Tissue w Contrast (Generic) Arturo Cordero MD [facility] [address] [place] [address] [facility] [place] [address] Referral ID Status Reason Start Date Expiration Date V isits Requested Visits Authorized [id number] Closed Specialty Service Requested 09/15/2020 03/18/2022 1 1 * Diagnostic Test (Routine) - Closed Specialty Diagnoses / Procedures Referred By Contac t Referred To Contact Radiology Diagnoses Malignant melanoma of conjunctiva, left Procedures CT Chest Abdomen Pelvis w Contrast (Generic) Arturo Cordero MD [facility] [address] [place] [address] [facility] [place] [address] Referral ID Status Reason Start Date Expiration Date V isits Requested Visits Authorized [id number] Closed Specialty Service Requested 09/15/2020 03/18/2022 1 1 Reason for Visit * Diagnostic Test (Routine) - Closed Specialty Diagnoses / Procedures Referred By Contac t Referred To Contact Radiology Diagnoses Malignant melanoma of conjunctiva, left Procedures CT Chest Abdomen Pelvis w Contrast (Generic) Arturo Cordero MD [facility] [address] [place] [address] [facility] [place] [address] Referral ID Status Reason Start Date Expiration Date V isits Requested Visits Authorized [id number] Closed Specialty Service Requested 09/15/2020 03/18/2022 1 1 Encounter Details Date Type Department Care Team (Latest Contact Info) Description 12/17/2020 12:17 PM EDT - 12/17/2020 12:28 PM EDT [place] [address] Arturo Cordero MD [facility] [address] [place] [address] Malignant melanoma of conjunctiva, left [...] mg by mouth daily. FreeStyle Sanjana 2 Raymond MiscIndications:diabete s mellitus 1 each by Other [...] 09/15/2020 09/19/2023 fluticasone propionate (FLONASE) 50 mcg/actuation [place], Suspension [...] 05/01/2024 11:20 AM EDT Appointment Mammography/[place] [address] Rodney Padilla MD 05/01/2024 1:45 PM EDT Office [place] [address] Juanpablo Hernandez MD [facility] [place] [address] 05/23/2024 2:45 PM EST Clinical Support Family Medicine at [facility] [address] [place] [address] Julia Low, [facility] 01/30/2025 1:30 PM EDT Laboratory Appointment Lab at [facility] Hematology Oncology [address] [place] [address] 01/30/2025 3:[address] [place] [address] Arturo Cordero MD [facility] [address] [place] [address] 01/30/2025 4:15 PM EDT Office Visit Hematology [place] [address] Arturo Cordero MD [facility] [address] [place] [address] documented as of this encounter Procedures Procedure [...] care manager that requested your imaging first. Arturo [...] ? Electronically signed by: Juanpablo Chris MD, [facility] ([phone]), at 12/17/2020 4:53 PM Narrative 12/17/2020 4:53 [...] care manager that requested your imaging first. Arturo [...] documented in this encounter Care Teams Research Geneticist Relationship Specialty Start Date End Date Luis E Narayan MD [facility] [address] [facility] [address] PCP - General Family Medicine 03/26/19 01/19/22 documented as of this encounter
--- OUTSIDE RECORDS SUMMARY | 2024-04-15 15:55 | XMS_ITS | Encounter Summary ---
[place] [address] Care Team Providers Care Press Tender Short Goods Name Role Phone Luis E Narayan MD Primary Care Provider Encounter Details Date Type Department Care Team (Late st Contact Info) Description 12/10/2020 E-[place] [address] Julia Low, [facility] Medication management Social History [...] in a long term (including now)? No 09/15/2020 Sex and Gender Information Value Date Recorded Sex Assigned at Not on file Gender Identity Not on file Sexual Orientation Not on file documented as of this encounter Miscellaneous Notes * E-Consult - Julia Faustin [facility] - 12/10/2020 8:16 AM [...] your test results may be less accurate. https://www.[facility].org/diseases-conditions/diabetes/expert-answers/blood-glu cose-monitors/faq-09775255 Reviewed test claims: Freestyle Sanjana 2 sensors [...] while using the Sensor. See your health managed care manager to understand how long ascorbic acid is active in your body. https://www.[employer]/us-en/safety-information.html This eConsult is focused on the specific [...] 05/01/2024 11:20 AM EDT Appointment Mammography/[place] [address] Rodney Padilla MD 05/01/2024 1:45 PM EDT Office [place] [address] Juanpablo Hernandez MD [facility] [place] [address] 05/23/2024 2:45 PM EST Clinical Support Family Medicine at [place] [address] [place] [address] Julia Low [facility] 01/30/2025 1:30 PM EDT Laboratory Appointment Lab at [facility] Hematology Oncology [address] [place] [address] 01/30/2025 3:[address] [place] [address] Arturo Cordero MD [facility] [place] [address] 01/30/2025 4:15 PM EDT Office Visit Hematology [place] [address] Arturo Cordero MD [facility] [place] [address] documented as of this encounter Visit Diagnoses Diagnosis Medication management Encounter for long-term (current) use of other medications documented in this encounter Care Teams Press Tender Short Goods Relationship Specialty Start Date End Date Luis E Narayan MD [facility] DR [address] [place] [address] PCP - General Family Medicine 03/26/19 01/19/22 documented as of this encounter
--- OUTSIDE RECORDS SUMMARY | 2024-04-15 15:55 | XMS_ITS | Encounter Summary ---
Author Organization [facility] [place] [address] Care Team Providers Care Wall Steamer Name Role Phone Luis E Narayan MD Primary Care Provider [phone] Reason for Visit * Reason Onset Date Comments Other 12/04/2020 Encounter Details Date Type Department Care Team (Late st Contact Info) Description 12/04/2020 Telephone Family Medicine at [facility] [address] [address] Stoner, Lacie L Other Social History Tobacco [...] RN - 12/10/2020 11:31 AM EDT Called [phone]. Left voicemail asking for patient to call back. Refer to [facility] on 12/05. Was read on 12/06. [...] to send my- message: = Offered Appointment: MA/Nurse/Manager Quality Improvement contacted via: Message: y Call: n Pager: n documented in this encounter Plan of Treatment Upcoming Encounters Date Type Department Care Team (Late st Contact Info) Description 05/01/2024 11:20 AM EDT Appointment Mammography/DXA at [place] [phone] Rodney Padilla MD 05/01/2024 1:45 PM EDT Office Visit Ophthalmology at [address] Juanpablo Hernandez MD [facility] [place] [address] 05/23/2024 2:45 PM EST Clinical Support Family Medicine at [address] [phone] Julia Low, [facility] 01/30/2025 1:30 PM EDT Laboratory Appointment Lab at [facility] Hematology Oncology [address] [place] [address] 01/30/2025 3:[address] Scan at [place] [phone] Arturo Cordero MD [facility] [place] [address] 01/30/2025 4:15 PM EDT Office Visit Hematology [place] [address] Arturo Cordero MD [facility] HEMATOLOGY AND [place]COLOGY [place] [address] documented as of this encounter Visit Diagnoses Not on filedocumented in this encounter Care Teams Wall Steamer Relationship Specialty Start Date End Date Luis E Naraayn MD [facility] [address]-[facility]ILY [facility]IC[place] [address] PCP - General Family Medicine 03/26/19 01/19/22 documented as of this encounter
--- OUTSIDE RECORDS SUMMARY | 2024-04-15 15:55 | XMS_ITS | Encounter Summary ---
Author Organization [facility] [address] Care Team Providers Care Retoucher Name Role Phone Luis E Narayan MD Primary Care Provider [phone]- [phone] Reason for Visit * Reason Onset Date Comments Appointment 01/25/2021 Encounter Details Date Type Department Care Team (Late st Contact Info) Description 01/25/2021 Telephone [place] [address] Juanpablo Hernandez MD [facility] [place] [address] Appointment Social History Tobacco Use Types Packs/Day [...] 05/01/2024 11:20 AM EDT Appointment Mammography/[place] [address] Rodney Padilla MD 05/01/2024 1:45 PM EDT Office Visit Ophthalmology at [place] [phone] Juanpablo Hernandez MD [facility] [place] [address] 05/23/2024 2:45 PM EST Clinical Support Family Medicine at [place] [address] [place] [address] Julia Low [facility] 01/30/2025 1:30 PM EDT Laboratory Appointment Lab at [facility] Hematology Oncology [address] [place] [address] 01/30/2025 3:[address] Scan at [place] [phone] Arturo Cordero MD [facility] DR HEMATOLOGY [place] [address] 01/30/2025 4:15 PM EDT Office Visit Hematology and Oncology at [place] [phone] Arturo Cordero MD [facility] DR HEMATOLOGY [place] [address] documented as of this encounter Visit Diagnoses Not on filedocumented in this encounter Care Teams Retoucher Relationship Specialty Start Date End Date Luis E Narayan MD [facility] DR LIL[address] [facility]ALK[facility] [address] PCP - General Family Medicine 03/26/19 01/19/22 documented as of this encounter
--- OUTSIDE RECORDS SUMMARY | 2024-04-15 15:55 | XMS_ITS | Encounter Summary ---
Author Organization Formerly [facility] Address [facility] [place] [address] Care Team Providers Care Machine Erector Name Role Phone Luis E Narayan MD Primary Care Provider +1- [phone] Reason for Visit * Reason Onset Date Comments Medication Refill 03/18/2021 Encounter Details Date Type Department Care Team (Late st Contact Info) Description 03/18/2021 Refill Family Medicine at [facility] [address] [place] [address] Luis E Narayan MD [facility] DR LILI WALKER-[place] [address] Social History Tobacco Use Types Packs/Day Years [...] AM EDT Appointment Mammography/[place] [address] Rodney Padilla MD 05/01/2024 1:45 PM EDT Office [place] [address] Juanpablo Hernandez MD [facility] [place] [address] 05/23/2024 2:45 PM EST Clinical Support Family Medicine at [facility] [address] [place] [address] Julia Low [facility] 01/30/2025 1:30 PM EDT Laboratory Appointment Lab at [facility] [place] Hematology Oncology [address] [place] [address] 01/30/2025 3:[address] [place] [address] Arturo Cordero MD [facility] HEMATOLOGY [place] [address] 01/30/2025 4:15 PM EDT Office Visit Hematology [place] [address] Arturo Cordero MD [facility] HEMATOLOGY [place] [address] documented as of this encounter Visit Diagnoses Not on filedocumented in this encounter Care Teams Machine Erector Relationship Specialty Start Date End Date Luis E Narayan MD [facility] [address]-[place] [address] PCP - General Family Medicine 03/26/19 01/19/22 documented as of this encounter
--- OUTSIDE RECORDS SUMMARY | 2024-04-15 15:55 | XMS_ITS | Encounter Summary ---
[place] [address] Care Team Providers Care Barrel Stave Inspector Name Role Phone Luis E Narayan MD Primary Care Provider Reason for Referral * Diagnostic Test (Routine) - Closed Specialty Diagnoses / Procedures Referred By Gonzalez kumari Referred To Contact Radiology Diagnoses Malignant melanoma of conjunctiva, left Procedures CT Chest Abdomen Pelvis w Contrast (Generic) Leandra Black APRN [facility] DR [place] [address] [facility] [place] [address] Referral ID Status Reason Start Date Expiration Date V isits Requested Visits Authorized [id number] Closed Specialty Service Requested 12/17/2020 06/18/2022 1 1 Reason for Visit * Reason Comments Follow-up Encounter Details Date Type Department Care Team (Late st Contact Info) Description 12/17/2020 3:45 PM EDT Office Visit Hematology [place] [address] Arturo Cordero MD [facility] DR [place] [address] Leandra Black APRN [facility] HEMATOLOGY [place] [address] Malignant melanoma of conjunctiva, left; History of [...] from the original note were not included. [facility] FOLLOW UP NOTE REFERING PHYSICIAN: [...] management - fall 2018: saw a new wine cellar stock clerk and was referred to Dr. 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 Medina - 03/31/2020: saw her wine cellar stock clerk Dr. Hernandez and was noted to have [...] uses inhalerswith good effect ??? Atherosclerosis of [place] coronary artery of [place] heart with angina pectoris 10/09/2007 History of [...] 3.47) performed by Juanpablo Hernandez MD at [facility] ??? PRO EXCIS CORNEA LESN Left 05/14/2020 EXCISION OF LESION, CORNEA, EXCEPT PTERYGIUM (WRVU 7.5) performed by Juanpablo Hernandez MD at [facility] ??? PRO LAP, PARTIAL NEPHRECTOMY Left 06/28/2019 LAPAROSCOPY, PARTIAL NEPHRECTOMY, ROBOTIC ASSIST (WRVU 27.41) performed by Avila Medina MD at [facility] MA[facility] OR ??? 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 Leandra Black DNP, BEVEL POLISHER Return in 3 mos for stand alone US RTC in 6 mos with labs, clinic appointment and CT scan documented in this encounter Plan of Treatment Upcoming Encounters Date Type Department Care Team (Late st Contact Info) Description 05/01/2024 11:20 AM EDT Appointment Mammography/[place] [address] Rodney Padilla MD 05/01/2024 1:45 PM EDT Office [place] [address] Juanpablo Hernandez MD [facility] [place] [address] 05/23/2024 2:45 PM EST Clinical Support Family Medicine at [place] [address] [place] [address] Julia Low Bac[place] 01/30/2025 1:30 PM EDT Laboratory Appointment Lab at [facility] Hematology Oncology [address] [place] [address] 01/30/2025 3:[address] [place] [address] Arturo Cordero MD [facility] DR [place] [address] 01/30/2025 4:15 PM EDT Office Visit Hematology and Oncology at [facility] [place] [address] Arturo Cordero MD [facility] DR [place] [address] documented as of this encounter Results * [...] have questions please contact the health care trainer that requested your imaging first. ? Narrative [...] who have questions please contactthe health care trainer that requested your imaging first. Leandra Black APRN IMG CT ORDERABLES * Lactate Dehydrogenase (06/24/2021 12:52 PM EST) Lactate Dehydrogenase 215 110 - 220 unit/L [facility] Blood 06/24/2021 12:5 2 PM EST 06/24/2021 1:02 PM EST Narrative Resulting Agency Comment Spec In Lab Leandra Black APRN CHEMISTRY ORDERABL ES [facility] [place] [address] * (ABNORMAL) Comprehensive metabolic panel (non-fasting) (06/24/2021 12:52 PM EST) Glucose 185 65 - 199 mg/dL [facility] Comment:Diabetes: >=200 mg/d L plus symptoms Blood Urea Nitrogen 12 8 - 18 mg/dL [facility] Creatinine 0.91 0.70 - 1.20 mg/dL [facility] Sodium 140 135 - 145 mmol/L [facility] Potassium 4.2 3.5 - 5.0 mmol/L [facility] Comment: Please note: ??Patients with WBC >100,000 may have falsely elevated Potassium levels. ??For accurate Potassium quantification in these patients send serum separator tube (gold top) for subsequent determinations. ??Contact the Clinical Chemistry Laboratory if there are any questions. Chloride 104 98 - 107 mmol/L [facility] Carbon Dioxide 25 22 - 31 mmol/L [facility] Anion Gap 11 5 - 15 mmol/L [facility] Calcium 9.6 8.5 - 10.5 mg/dL [facility] Protein, Total 6.9 6.1 - 8.0 g/dL [facility] Albumin 4.3 3.2 - 5.2 g/dL [facility] Aspartate Aminotransferase 27 0 - 30 unit/L [facility] Alanine Aminotransferase 34(H) 0 - 30 unit/L [facility] Alkaline Phosphatase 93 35 - 105 unit/L [facility] Bilirubin, Total 0.3 0.2 - 1.3 mg/dL [facility] [...] Lab Leandra Black APRN CHEMISTRY ORDERABL ES [facility] [place] [address] * US Soft Tissue Head Or Neck [...] have questions, please contact the health care trainer that requested your imaging first. ?Faina Hernández-Carlos Eduardo, Staff Physician Electronically Signed Final Report ?? 03/19/2021 12:13 pm Narrative 03/19/2021 12:13 PM EDT Ultrasound Soft Tissue ?(Signed Final 03/19/2021 12:13 pm) Neck or Head Report PATIENT INFO: ID #: ? [id number] ?: ??[birth year] (60 yrs)(F) Name: ? PATIENCE Chelsea MANJARREZ ? Visit Date: 03/19/2021 10:54 am PERFORMED BY: Performed By: ? Tonia Lopes RDMS Attending: ?Faina Hernández MD Referred By: ?LAENDRA BLACK Location: ? [place] SERVICE(S) PROVIDED: USTN - Soft Tissue Neck or Head - [id number] ? [id number] INDICATIONS: History of left eye conjunctival melanoma [...] or Head Report PATIENT INFO: ID #: [id number] : 58 (60 yrs)(F) Name: PATIENCEJOSE DANIEL MANJARREZ Visit Date: 03/19/2021 10:54 am PERFORMED BY: Performed By: Tonia Lopes RDMS Attending: Favio COLVIN, Faina Nielsen Referred By: LEANDRA BLACK Location: [place] SERVICE(S) PROVIDED: USTN - Soft Tissue Neck or Head - [id number] INDICATIONS: History of left eye conjunctival melanoma [...] have questions, please contact the health care trainer that requested your imaging first. Faina Hernández-Carlos Eduardo, Staff Physician Electronically Signed Final Report 03/19/2021 12:13 pm Leandra Black APRN IMG US GEN ORDERAB LES documented in this encounter Visit Diagnoses Diagnosis Malignant melanoma of conjunctiva, left History of renal cell cancer Malignant melanoma of conjunctiva, left Malignant melanoma of conjunctiva, left documented in this encounter Care Teams Barrel Stave Inspector Relationship Specialty Start Date End Date Luis E Narayan MD [facility] [address] [place] [address] PCP - General Family Medicine 03/26/19 01/19/22 documented as of this encounter
--- OUTSIDE RECORDS SUMMARY | 2024-04-15 15:55 | XMS_ITS | Encounter Summary ---
Author Organization [facility] [place] [address] Care Team Providers Care Embryology Teacher Name Role Phone Luis E Narayna MD Primary Care Provider Encounter Details Date Type Department Care Team (Late st Contact Info) Description 10/21/2020 Telephone Internal Medicine at [facility] [address] [place] [address] Post, Christine Pablo Social History Tobacco Use [...] 10/21/2020 4:18 PM EDT Good Afternoon, Clinical secretary administrative assistant called patient and left a voicemail to please call back [facility] at [phone]. When patient calls back please assist with scheduling an appointment with Luis E Narayan MD in regards to lab follow-up. Thank you, Christine documented in this encounter Plan of Treatment Upcoming Encounters Date Type Department Care Team (Late st Contact Info) Description 05/01/2024 11:20 AM EDT Appointment Mammography/[place] [address] Rodney Padilla MD 05/01/2024 1:45 PM EDT Office [place] [address] Juanpablo Hernandez MD [facility] [place] [address] 05/23/2024 2:45 PM EST Clinical Support Family Medicine at [facility] [address] [place] [address] Julia Low, [facility] 01/30/2025 1:30 PM EDT Laboratory Appointment Lab at [facility] Hematology Oncology [address] [place] [address] 01/30/2025 3:[address] [place] [address] Arturo Cordero MD [facility] [place] [address] 01/30/2025 4:15 PM EDT Office Visit Hematology [place] [address] Arturo Cordero MD [facility] [address] [place] [address] documented as of this encounter Visit Diagnoses Not on filedocumented in this encounter Care Teams Embryology Teacher Relationship Specialty Start Date End Date Luis E Narayan MD [facility] DR LILI [place] [address] PCP - General Family Medicine 03/26/19 01/19/22 documented as of this encounter
--- OUTSIDE RECORDS SUMMARY | 2024-04-15 15:55 | XMS_ITS | Encounter Summary ---
Author Organization Formerly [facility] Address [facility] [place] [address] Care Team Providers Care Paper Cutting Machine Operator Name Role Phone Luis E Narayan MD Primary Care Provider +1- [phone] Reason for Visit * Reason Onset Date Comments Medication Refill 10/30/2020 Encounter Details Date Type Department Care Team (Late st Contact Info) Description 10/30/2020 Refill Internal Medicine at [facility] [address] [place] [address] Troy Moscoso PA [facility] DR LILI [place]AK[place]ER[place] [address] Chronic bilateral low back pain without sciatica [...] 05/01/2024 11:20 AM EDT Appointment Mammography/[place] [address] Rodney Padilla MD 05/01/2024 1:45 PM EDT Office Visit Ophthalmology at [place] [phone] Juanpablo Hernandez MD [facility] [place] [address] 05/23/2024 2:45 PM EST Clinical Support Family Medicine at [address] [phone] Julia Low, [facility] 01/30/2025 1:30 PM EDT Laboratory Appointment Lab at [facility] Hematology Oncology [address] [place] [address] 01/30/2025 3:[address] [place] [place] [address] Arturo Cordero MD [facility] DR [place] [address] 01/30/2025 4:15 PM EDT Office Visit [place]ology [place] [address] Arturo Cordero MD [facility] DR [place] [address] documented as of this encounter Visit Diagnoses Diagnosis Chronic bilateral low back pain without sciatica documented in this encounter Care Teams Paper Cutting Machine Operator Relationship Specialty Start Date End Date Luis E Narayan MD [facility] DR LILI [place] [address] PCP - General Family Medicine 03/26/19 01/19/22 documented as of this encounter
--- OUTSIDE RECORDS SUMMARY | 2024-04-15 15:55 | XMS_ITS | Encounter Summary ---
Author Organization [facility] [place] [address] Care Team Providers Care Web Production Artist Name Role Phone Luis E Narayan MD Primary Care Provider +1- [phone] Reason for Visit * Reason Onset Date Comments Prior Authorization 04/06/2021 Omeprazole Encounter Details Date Type Department Care Team (Late st Contact Info) Description 04/06/2021 Telephone Family Medicine at [facility] [address] [place] [address] Arlene Palomo, [employer] MANAGER Prior Authorization (Omeprazole) Social History Tobacco Use [...] Date: 04/06/2021 End Date: 07/06/2021 Case/Reference #: [id number] See Approval Letter in scanned documents. Additional Notes: * Telephone Encounter - Arlene Palomo CMA - 04/06/2021 7:48 AM EDT Medication Prior Authorization [place] [address] Request received via: Message Patient: Alize Gramajo Patient : 1960 Insurance Company: [place] Medicaid Sent via: [employer] Anderson: [id number] Physician: Luis E Narayan MD ?? Medication [...] 05/01/2024 11:20 AM EDT Appointment Mammography/[place] [address] Rodney Padilla MD 05/01/2024 1:45 PM EDT Office [place] [address] Juanpablo Hernandez MD [facility] [place] [address] 05/23/2024 2:45 PM EST Clinical Support Family Medicine at [address] [phone] Julia Low [facility] 01/30/2025 1:30 PM EDT Laboratory Appointment Lab at [facility] [place] On[place] [address] [place] [address] 01/30/2025 3:[address] [place] [place] [address] Arturo Cordero MD [facility] HEMATOLOGY AND ONCOLOGY [place], [place] [address] 01/30/2025 4:15 PM EDT Office Visit Hematology [place] [address] Arturo Cordero MD [facility] [place] [address] documented as of this encounter Visit Diagnoses Not on filedocumented in this encounter Care Teams Web Production Artist Relationship Specialty Start Date End Date Luis E Narayan MD [facility] DR LILI [place] [address] PCP - General Family Medicine 03/26/19 01/19/22 documented as of this encounter
--- OUTSIDE RECORDS SUMMARY | 2024-04-15 15:55 | XMS_ITS | Encounter Summary ---
Author Organization [facility] Address [facility] [place] [address] Care Team Providers Care Corner Former Name Role Phone Luis E Narayan MD Primary Care Provider +1- [phone] Reason for Visit * Reason Onset Date Comments Medication Refill 03/30/2021 Encounter Details Date Type Department Care Team (Late st Contact Info) Description 03/30/2021 Refill Family Medicine at [facility] [address] [place] [address] Luis E Nar[address] MD [facility] DR LILI WALKER[place] [address] Social History Tobacco Use Types Packs/Day Years [...] 11:20 AM EDT Appointment Mammography/[place] [address] Rodney Padilla MD 05/01/2024 1:45 PM EDT Office Visit [place] [address] [facility] [address] 05/23/2024 2:45 PM EST Clinical Support Family Medicine at [facility] [address] [place] [address] Julia Low [facility] 01/30/2025 1:30 PM EDT Laboratory Appointment Lab at [facility] [place] Oncology [address] [place] [address] 01/30/2025 3:[address] [place] [address] [facility] HEMATOLOGY [place] [address] 01/30/2025 4:15 PM EDT Office Visit Hematology [place] [address] [facility] HEMATOLOGY [place] [address] documented as of this encounter Visit Diagnoses Not on filedocumented in this encounter Care Teams Corner Former Relationship Specialty Start Date End Date Luis E Narayan MD [facility] [address] [place] [address] PCP - General Family Medicine 03/26/19 01/19/22 documented as of this encounter
--- OUTSIDE RECORDS SUMMARY | 2024-04-15 15:55 | XMS_ITS | Encounter Summary ---
Author Organization [facility] Address [facility] [place] [address] Care Team Providers Care School Resource Officer Name Role Phone Luis E Narayan MD Primary Care Provider +1- [phone] Reason for Visit * Reason Onset Date Comments Medication Refill 05/05/2021 Encounter Details Date Type Department Care Team (Late st Contact Info) Description 05/05/2021 Refill Family Medicine at [facility] [address] [place] [address] Luis E [address] MD [facility] DR LILI [place] [address] Essential hypertension Social History Tobacco Use Types [...] slept in a half-way (including now)? No 02/03/2021 Sex and Gender Information Value Date Recorded Sex Assigned at Not on file Gender Identity Not on file Sexual Orientation Not on file documented as of this encounter Plan of Treatment Upcoming Encounters Date Type Department Care Team (Late st Contact Info) Description 05/01/2024 11:20 AM EDT Appointment Mammography/[place] [address] Rodney Padilla MD 05/01/2024 1:45 PM EDT [place] [address] [facility] [place] [address] 05/23/2024 2:45 PM EST Clinical Support Family Medicine at [facility] [address] [place] [address] Julia Low [facility] [place] [facility] 01/30/2025 1:30 PM EDT Laboratory Appointment Lab at [facility] Hematology Oncology [address] [place] [address] 01/30/2025 3:[address] [place] [place] [address] [facility] DR HEM[place] [address] 01/30/2025 4:15 PM EDT Office Visit [place]ematology [place] [address] [facility] [place]ATOLOGY [place] [address] documented as of this encounter Visit Diagnoses Diagnosis Essential hypertension Unspecified essential hypertension documented in this encounter Care Teams School Resource Officer Relationship Specialty Start Date End Date Luis E Narayan MD [facility] [address] [place] [address] PCP - General Family Medicine 03/26/19 01/19/22 documented as of this encounter
--- OUTSIDE RECORDS SUMMARY | 2024-04-15 15:55 | XMS_ITS | Encounter Summary ---
Author Organization [facility] Address [facility] [place] [address] Care Team Providers Care Medical Front Desk Specialist Name Role Phone Luis E Narayan MD Primary Care Provider Encounter Details Date Type Department Care Team (Late st Contact Info) Description 01/04/2021 Ancillary Procedure Radiology Library [place] [address] Luis E Narayan MD [facility] DR LILI WALK[place] [address] Social History Tobacco Use Types Packs/Day Years [...] 05/01/2024 11:20 AM EDT Appointment Mammography/[place] [address] Rodney Padilla MD 05/01/2024 1:45 PM EDT Office [place] [address] Juanpablo Hernandez MD [facility] [address] 05/23/2024 2:45 PM EST Clinical Support Family Medicine at [facility] [address] [place] [address] Julia Low, [facility] 01/30/2025 1:30 PM EDT Laboratory Appointment Lab at [facility] [place] On[place] [address] [place] [address] 01/30/2025 3:[address] [place] [address] Arturo Cordero MD [facility] HEMATOLOGY [place] [address] 01/30/2025 4:15 PM EDT Office Visit Hematology [place] [address] Arturo Cordero MD [facility] HEMATOLOGY [place] [address] documented as of this encounter Procedures Procedure Name Priority Date/Time Associated Diagnosis Comments FILM LIBRARY STORAGE ONLY DX CHEST Routine 01/04/2021 12:00 AM EDT documented in this encounter Results * Film Library- Storage Only DX Chest (01/04/2021 12:00 AM EDT) Narrative [facility] - 02/15/2021 11:34 AM EDT This exam is auto-finalizing. It's purpose is for storage only. Luis E Narayan MD IMG FILM LIBRARY OR DERABLES [place], [place] documented in this encounter Visit Diagnoses Not on filedocumented in this encounter Care Teams Medical Front Desk Specialist Relationship Specialty Start Date End Date Luis E Narayan MD [facility] [address] [place] [address] PCP - General Family Medicine 03/26/19 01/19/22 documented as of this encounter
--- OUTSIDE RECORDS SUMMARY | 2024-04-15 15:55 | XMS_ITS | Encounter Summary ---
[place] [address] Care Team Providers Care Metal Patternmaker Name Role Phone Luis E Narayan MD Primary Care Provider +1- [phone] Encounter Details Date Type Department Care Team (Late st Contact Info) Description 02/04/2021 Telephone [place] [address] Malika Ye Social History Tobacco Use Types [...] 05/01/2024 11:20 AM EDT Appointment Mammography/[place] [address] Rodney Padilla MD 05/01/2024 1:45 PM EDT Office [place] [phone] Juanpablo Hernandez MD [facility] [place] [place] [address] 05/23/2024 2:45 PM EST Clinical Support Family Medicine at [facility] [address] [place] [address] Julia Low [facility] 01/30/2025 1:30 PM EDT Laboratory Appointment Lab at [facility] Hematology Oncology [address] [place] [address] 01/30/2025 3:[address] [place] [address] Arturo Cordero MD [facility] [place] [address] 01/30/2025 4:15 PM EDT Office Visit Hematology [place] [address] Arturo Cordero MD [facility] [place] [address] documented as of this encounter Visit Diagnoses Not on filedocumented in this encounter Care Teams Metal Patternmaker Relationship Specialty Start Date End Date LuisE Narayan MD [facility] DR [place] [address] PCP - General Family Medicine 03/26/19 01/19/22 documented as of this encounter
--- OUTSIDE RECORDS SUMMARY | 2024-04-15 15:55 | XMS_ITS | Encounter Summary ---
Author Organization [facility] [place] [address] Care Team Providers Care Power Station Operator Name Role Phone Luis E Narayan MD Primary Care Provider +1- [phone] Reason for Referral * Consultation (Routine) - Closed Specialty Diagnoses / Procedures Referred By Gonzalez kumari Referred To Contact General Surgery Diagnoses Bloating Alternating constipation and diarrhea [place] [address] Torito Coon MD [address] [place] [address] Referral ID Status Reason Start Date Expiration Date V isits Requested Visits Authorized [id number] Closed Test Only 02/03/2021 08/02/2021 1 1 Reason for Visit * Reason Comments Follow-up Been significantly w orse for past 3 days. Other Wants to ask liliana canales about small hernia on CT scan in December and discuss possible IBS Encounter Details Date Type Department Care Team (Late st Contact Info) Description 02/03/2021 4:00 PM EDT Office Visit Internal Medicine at [facility] [address] [place] [address] [place] [address] Bloating; Alternating constipation and diarrhea Social History [...] in a care home (including now)? No 02/03/2021 Sex and [...] Diagnosis Code ??? 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 Altered [...] 05/01/2024 11:20 AM EDT Appointment Mammography/[place] [address] Rodney Padilla MD 05/01/2024 1:45 PM EDT Office [place] [address] Juanpablo Hernandez MD [facility] [place] [address] 05/23/2024 2:45 PM EST Clinical Support Family Medicine at [address] [phone] Julia Low, [facility] 01/30/2025 1:30 PM EDT Laboratory Appointment Lab at [facility] [place]ematology Oncology [address] [place] [address] 01/30/2025 3:[address] [place] [address] Arturo Cordero MD [facility] HEMATOLOGY [place] [address] 01/30/2025 4:15 PM EDT Office Visit Hematology [place] [address] Arturo Cordero MD [facility] DR HEMATOLOGY AND ONCOLOGY [place], [place] [phone] Scheduled Referrals Name Type Priority Associated Diagnoses Orde r Schedule REFERRAL TO COLONOSCOPY PROCEDURE Outpatient Referral Routine Bloating Alternating constipation and diarrhea Ordered: 02/03/2021 documented as of this encounter Visit Diagnoses Diagnosis Bloating Flatulence, eructation, and gas pain Alternating constipation and diarrhea Other symptoms involving digestive system documented in this encounter Care Teams Power Station Operator Relationship Specialty Start Date End Date Luis E Narayan MD [facility] [address] [place] [address] PCP - General Family Medicine 03/26/19 01/19/22 documented as of this encounter
--- OUTSIDE RECORDS SUMMARY | 2024-04-15 15:55 | XMS_ITS | Encounter Summary ---
Author Organization [facility] Address [facility] [place] [address] Care Team Providers Care Training And Development Manager Name Role Phone Luis E Narayan MD Primary Care Provider +1- [phone] Encounter Details Date Type Department Care Team (Late st Contact Info) Description 02/11/2021 Ancillary Procedure Radiology Library at [facility] [place] [address] Luis E Narayan MD [facility] DR LIL[address] [place] [address] Social History Tobacco Use Types Packs/Day Years [...] No 02/03/2021 Housing Stability Vital Sign Answer Ozile e [...] 05/01/2024 11:20 AM EDT Appointment Mammography/[place] [address] Rodney Padilla MD 05/01/2024 1:45 PM EDT Office [place] [address] Juanpablo Hernandez MD [facility] [place] [address] 05/23/2024 2:45 PM EST Clinical Support Family Medicine at [facility] [address] [place] [address] Julia Low, [facility] 01/30/2025 1:30 PM EDT Laboratory Appointment Lab at [facility] [place] Oncology [address] [place] [address] 01/30/2025 3:[address] [place] [place] [address] Arturo Cordero MD [facility] [place] [address] 01/30/2025 4:15 PM EDT Office Visit [place]ology [place] [address] Arturo Cordero MD [facility] [place] [address] documented as of this encounter Procedures Procedure Name Priority Date/Time Associated Diagnosis Comments FILM LIBRARY STORAGE ONLY CT ABDOMEN AND PELVIS Routine 02/11/2021 12:00 AM EDT documented in this encounter Results * Film Library- Storage Only CT Abdomen & Pelvis (02/11/2021 12:00 AM EDT) Narrative [facility] - 02/15/2021 11:35 AM EDT This exam is auto-finalizing. It's purpose is for storage only. Luis E Narayan MD IMG FILM LIBRARY OR DERABLES Performing Organization Address City/State/[facility] Co de Phone Number [place], [place] documented in this encounter Visit Diagnoses Not on filedocumented in this encounter Care Teams Training And Development Manager Relationship Specialty Start Date End Date Luis E Narayan MD [facility] [address] [place] [address] PCP - General Family Medicine 03/26/19 01/19/22 documented as of this encounter
--- OUTSIDE RECORDS SUMMARY | 2024-04-15 15:55 | XMS_ITS | Encounter Summary ---
Author Organization [facility] [place] [address] Care Team Providers Care Transition Manager Name Role Phone Luis E Narayan MD Primary Care Provider +1- [phone] Encounter Details Date Type Department Care Team (Latest Contact Info) Description 12/17/2020 12:29 PM EDT - 12/17/2020 11:59 PM EDT Hospital Encounter Hematology [place] [address] Malignant melanoma of conjunctiva, left Discharge Disposition: [...] mg by mouth daily. FreeStyle Sanjana 2 [place] MiscIndications:diabete s mellitus 1 each by Other [...] 09/15/2020 09/19/2023 fluticasone propionate (FLONASE) 50 mcg/actuation [place], Suspension 1 spray by Each Nare route [...] 05/01/2024 11:20 AM EDT Appointment Mammography/[place] [address] Rodney Padilla MD 05/01/2024 1:45 PM EDT Office [place] [address] [facility] [place] [address] 05/23/2024 2:45 PM EST Clinical Support Family Medicine at [facility] [address] [place] [address] Julia Low [facility] 01/30/2025 1:30 PM EDT Laboratory Appointment Lab at [facility] Hematology Oncology [address] [place] [address] 01/30/2025 3:[address] [place] [address] [facility] DR HEMATOLOGY [place] [address] 01/30/2025 4:15 PM EDT Office Visit Hematology [place] [address] [facility] DR HEMATOLOGY [place] [address] Scheduled Orders Name Type Priority Associated Diagnoses [...] Scan, Peripheral Blood (12/17/2020 12:45 PM EDT) Plat estimate Normal [facility] RBC Morphology Normal [facility] Blood 12/17/2020 12:4 5 PM EDT 12/17/2020 12:51 PM EDT Narrative Resulting Agency Comment Spec In Lab Arturo Cordero MD HEMATOLOGY ORDERABLE S [facility] [place] [address] * Differential, Automated (12/17/2020 12:45 PM EDT) [facility] Neutrophil % 58.0 % [facility] Neutrophil Absolute 3.91 1.70 - 6.10 x10(3)/[facility] Lymph % 29.9 % [facility] Lymphocytes Abs 2.0 0.9 - 3.2 x10(3)/[facility] Monocyte % 9.2 % [facility] Monocyte Abs 0.6 0.3 - 0.9 x10(3)/[facility] Eos % 1.9 % [facility] Eosinophils Abs 0.1 0.0 - 0.4 x10(3)/[facility] Basophil % 0.9 % [facility] Baso Absolute 0.1 0.0 - 0.1 x10(3)/[facility] Immature Gran % 0.10 % [facility] Comment: Immature granulocytes(IG's)percentage and absolute count will include metamyelocytes, myelocytes, and promyelocytes. Blood smears from CBCs yielding IG's will be scanned manually for concordance. If this scan disagrees with the automated IG or if promyelocytes are noted, a manual differential will be performed. Immature Gran Absolute 0.01 0.00 - 0.04 x10(3)/mcL [facility] Blood 12/17/2020 12:4 5 PM EDT 12/17/2020 12:51 PM EDT Narrative Resulting Agency Comment Spec In Lab Arturo Cordero MD HEMATOLOGY ORDERABLE S [facility] [place] [address] * (ABNORMAL) Hemogram (12/17/2020 12:45 PM EDT) White Blood Cell 6.8 4.0 - 9.5 x10(3)/mc L [facility] Red Blood Cell 4.44 4.00 - 5.21 x10(6)/mc L [facility] Hemoglobin 12.8 11.7 - 15.5 gm/dL [facility] Hematocrit 38.3 35.7 - 45.8 % [facility] Mean Cell Volume 86.3 82.6 - 94.4 fL [facility] Mean Cell Hemoglobin 28.8 27.1 - 32.0 pg [facility] Mean Cell Hemoglobin Concentration 33.4 31.7 - 35.0 gm/dL [facility] Platelet 351 145 - 357 x10(3)/mc L [facility] RDW Standard Deviation 45.1 37.0 - 46.0 fL [facility] RDW coefficient of variation 14.2(H) 11.5 - 14.1 % [facility] Mean Platelet Volume 9.6 7.6 - 12.9 fL [facility] NRBC% auto 0.0 % [facility] NRBC Absolute 0.000 0.000 - 0.000 x10(3)/mc L [facility] Blood 12/17/2020 12:4 5 PM EDT 12/17/2020 12:51 PM EDT Narrative Resulting Agency Comment Spec In Lab Arturo Cordero MD HEMATOLOGY ORDERABLE S [facility] [place] [address] * (ABNORMAL) Comprehensive metabolic panel (non-fasting) (12/17/2020 12:45 PM EDT) Glucose 220(H) 65 - 199 mg/dL [facility] Comment:Diabetes: >=200 mg/d L plus symptoms Blood Urea Nitrogen 15 8 - 18 mg/dL [facility] Creatinine 0.94 0.70 - 1.20 mg/dL [facility] Sodium 139 135 - 145 mmol/L [facility] [...] [facility] Anion Gap 9 5 - 15 mmol/L [facility] Calcium 9.5 8.5 - 10.5 mg/dL [facility] Protein, Total 6.7 6.1 - 8.0 gm/dL [facility] Albumin 4.2 3.2 - 5.2 gm/dL [facility] Aspartate Aminotransferase 21 0 - 30 unit/L [facility] Alanine Aminotransferase 24 0 - 30 unit/L [facility] Alkaline Phosphatase 97 35 - 105 unit/L [facility] Bilirubin, Total 0.5 0.2 - 1.3 mg/dL [facility] Est Glomerular Filtration Rate 65 >=60 mL/min/1. 73 m?? [facility] [...] Cordero MD CHEMISTRY ORDERABLES Performing Organization Address City/[facility]/ZIP Co de Phone Number [facility] [place] [address] * Lactate Dehydrogenase (12/17/2020 12:45 PM EDT) Lactate Dehydrogenase 205 110 - 220 unit/L [facility] Blood 12/17/2020 12:4 5 PM EDT 12/17/2020 12:51 PM EDT Narrative Resulting Agency Comment Spec In Lab Arturo Cordero MD CHEMISTRY ORDERABLES Performing Organization Address City/[facility]/ZIP Co de Phone Number [facility] [place] [address] documented in this encounter Visit Diagnoses Diagnosis Malignant melanoma of conjunctiva, left documented in this encounter Care Teams Transition Manager Relationship Specialty Start Date End Date Luis E Narayan MD [facility] DR LILI WALKER[place] [address] PCP - General Family Medicine 03/26/19 01/19/22 documented as of this encounter
--- OUTSIDE RECORDS SUMMARY | 2024-04-15 15:55 | XMS_ITS | Encounter Summary ---
Author Organization [facility] [place] [address] Care Team Providers Care Avionics Safety Inspector Name Role Phone Luis E Narayan MD Primary Care Provider Encounter Details Date Type Department Care Team (Late st Contact Info) Description 11/03/2020 Telephone Family Medicine at [facility] [address] [place] [phone] Thania Flores, RN Social History Tobacco Use [...] 05/01/2024 11:20 AM EDT Appointment Mammography/DXA at [place] [phone] Rodney Padilla MD 05/01/2024 1:45 PM EDT Office Visit Ophthalmology at [place] [address] Juanpablo Hernandez MD [facility] [place] [address] 05/23/2024 2:45 PM EST Clinical Support Family Medicine at [facility] [address] [place] [address] Julia Low, [facility] 01/30/2025 1:30 PM EDT Laboratory Appointment Lab at [facility] Hematology Oncology [address] [place] [address] 01/30/2025 3:[address] Scan at [place] [phone] Arturo Cordero MD [facility] [place] [address] 01/30/2025 4:15 PM EDT Office Visit Hematology [place] [address] Arturo Cordero MD [facility] [place] [address] documented as of this encounter Visit Diagnoses Not on filedocumented in this encounter Care Teams Avionics Safety Inspector Relationship Specialty Start Date End Date Luis E Narayan MD [facility] DR LIL[address] [place] [address] PCP - General Family Medicine 03/26/19 01/19/22 documented as of this encounter
--- OUTSIDE RECORDS SUMMARY | 2024-04-15 15:55 | XMS_ITS | Encounter Summary ---
Author Organization [facility] Address [facility] [place] [address] Care Team Providers Care Check And Transfer Beader Name Role Phone Luis E Narayan MD Primary Care Provider [phone] Reason for Referral * E-Consultation (Routine) - Closed Specialty Diagnoses / Procedures Referred By Gonzalez kumari Referred To Contact Pharmacy Diagnoses Type 2 diabetes mellitus with hyperglycemia, without long-term current use of insulin Procedures eConsult to [facility] (Primary Care Use Only) Erik Cyr MD [facility] [place] [address] Referral ID Status Reason Start Date Expiration Date Visits Re quested Visits Authorized [id number] Closed 12/04/2020 12/04/2021 1 1 Reason for [...] EDT TH Visit (TeleHealth) Family Medicine at [facility] [address] [place] [place] [address] Erik Cyr MD [facility] [place] [address] Type 2 diabetes mellitus without [...] slept in a longterm (including now)? No 09/15/2020 Sex and Gender Information Value Date Recorded Sex Assigned at Not on file Gender Identity Not on file Sexual Orientation Not on file documented as of this encounter Progress Notes * [facility] George, [facility] - 12/03/2020 2:00 PM EDT Patient contacted at [phone] Preferred phone: [phone] Patient confirms location for visit as: [place] (not eligible for telehealth visit if outside of [place] & should reschedule when back) Home address: [address] [place] [phone] If phone visit: patient verbally consents to [...] location: [place] address [place]: [place] [address] Mode of communication documented under telehealth requirements as appropriate Callback number if video visit: Preferred phone number on file: [phone] CHART REVIEW Made appointment for high blood [...] Diagnosis Code ??? Coronary artery disease involving kletsel dehe wintun coronary artery of kletsel dehe [place] heart with angina pectoris I25.119 ??? Altered [...] 0 ??? fluticasone propionate (FLONASE) 50 mcg/actuation [place], Suspension 1 spray by Each Nare route [...] minutes 12/10/2020: Received pharmacy e-consult recommendations: Recommend Bioceptive system, which they say is covered by [...] 05/01/2024 11:20 AM EDT Appointment Mammography/[place] [address] Rodney Padilla MD 05/01/2024 1:45 PM EDT Office Visit Ophthalmology at [place] [phone] Juanpablo Hernandez MD [facility] [place] [address] 05/23/2024 2:45 PM EST Clinical Support Family Medicine at [address] [phone] Julia Low, [facility] 01/30/2025 1:30 PM EDT Laboratory Appointment Lab at [facility] Hematology Oncology [address] [place] [address] 01/30/2025 3:[address] [place] [address] Arturo Cordero MD [facility] [place] [address] 01/30/2025 4:15 PM EDT Office Visit Hematology [place] [address] Arturo Cordero MD [facility] [place] [address] documented as of this encounter Visit Diagnoses Diagnosis Type 2 diabetes mellitus without long-term current use of insulin- Primary documented in this encounter Care Teams Check And Transfer Beader Relationship Specialty Start Date End Date Luis E Narayan MD [facility] DR LIL[address] [place] [address] PCP - General Family Medicine 03/26/19 01/19/22 documented as of this encounter
--- OUTSIDE RECORDS SUMMARY | 2024-04-15 15:55 | XMS_ITS | Encounter Summary ---
Author Organization [facility] Address [facility] [place] [address] Care Team Providers Care Ground School Instructor Name Role Phone Luis E Narayan MD Primary Care Provider Reason for Visit * Reason Comments Melanoma Encounter Details Date Type Department Care Team (Late st Contact Info) Description 01/20/2021 12:45 PM EDT Office [place] [address] Juanpablo Hernandez MD [facility] [place] [address] Malignant melanoma of conjunctiva, left Social History [...] 05/01/2024 11:20 AM EDT Appointment Mammography/[place] [address] Rodney Padilla MD 05/01/2024 1:45 PM EDT Office [place] [address] Juanpablo Hernandez MD [facility] [place] [address] 05/23/2024 2:45 PM EST Clinical Support [facility] [address] [place] [address] Julia Low [facility] 01/30/2025 1:30 PM EDT Laboratory Appointment Lab at [facility] Hematology Oncology [address] [place] [address] 01/30/2025 3:[address] [place] [address] Arturo Cordero MD [facility] DR [place] [address] 01/30/2025 4:15 PM EDT Office Visit [place]ematology [place] [address] Arturo Cordero MD [facility] DR [place] [address] documented as of this encounter Visit Diagnoses Diagnosis Malignant melanoma of conjunctiva, left documented in this encounter Care Teams Ground School Instructor Relationship Specialty Start Date End Date Luis E Narayan MD [facility] [address] [place] [address] PCP - General Family Medicine 03/26/19 01/19/22 documented as of this encounter
--- OUTSIDE RECORDS SUMMARY | 2024-04-15 15:55 | XMS_ITS | Encounter Summary ---
Author Organization [facility] [place] [address] Care Team Providers Care Communications Systems Engineer Name Role Phone Luis E Narayan MD Primary Care Provider +1- [phone] Encounter Details Date Type Department Care Team (Late st Contact Info) Description 03/19/2021 10:52 AM EDT - 03/19/2021 11:59 PM EDT Hospital [place] [address] Leandra Black, GL[facility] BRUSHER [facility] [address] [place] [address] Malignant melanoma of conjunctiva, left Discharge Disposition: [...] meals). 180 tablet 1 01/08/2021 08/02/2021 FreeStyle Sanjaan 2 [place] MiscIndications:diabete s mellitus 1 each by Other [...] 09/15/2020 09/19/2023 fluticasone propionate (FLONASE) 50 mcg/actuation Holt, Suspension 1 spray by Each Nare route [...] 05/01/2024 11:20 AM EDT Appointment Mammography/[place] [address] Rodney Padilla MD 05/01/2024 1:45 PM EDT Office [place] [address] Juanpablo Hernandez MD [facility] [place] [address] 05/23/2024 2:45 PM EST Clinical Support Family Medicine at [facility] [address] [place] [address] Julia Low, [facility] 01/30/2025 1:30 PM EDT Laboratory Appointment Lab at [facility] Hematology Oncology [address] [place] [address] 01/30/2025 3:[address] [place] [address] Arturo Cordero MD [facility] DR [place] [address] 01/30/2025 4:15 PM EDT Office Visit Hematology [place] [address] Arturo Cordero MD [facility] DR [place] [address] documented as of this encounter Procedures Procedure [...] who have questions, please contact the health rn intensive care unit that requested your imaging first. ?Faina Hernadez, Staff Physician Electronically Signed Final Report ?? 03/19/2021 12:13 pm Narrative 03/19/2021 12:13 PM EDT Ultrasound Soft Tissue ?(Signed Final 03/19/2021 12:13 pm) Neck or Head Report PATIENT INFO: ID #: ? [id number] ?: ??[birth year] (60 yrs)(F) Name: ? PATIENCE MANJARREZ ? Visit Date: 03/19/2021 10:54 am PERFORMED BY: Performed By: ? Tonia Lopes RDMS Attending: ?Favio COLVIN, Faina Nielsen Referred By: ?LEANDRA BLACK Location: ? [facility] SERVICE(S) PROVIDED: USTN - Soft Tissue Neck or Head - [id number] ? [id number] INDICATIONS: History of left eye conjunctival melanoma [...] or Head Report PATIENT INFO: ID #: [id number] : 58 (60 yrs)(F) Name: PTAIENCE MANJARREZ Visit Date: 03/19/2021 10:54 am PERFORMED BY: Performed By: Tonia Lopes RDMS Attending: Faina Stahl MD Referred By: LEANDRA BLACK Location: [facility] SERVICE(S) PROVIDED: USTN - Soft Tissue Neck or Head - [id number] INDICATIONS: History of left eye conjunctival melanoma [...] who have questions, please contact the health rn intensive care unit that requested your imaging first. Faina SneedFort Morgan, Staff Physician Electronically Signed Final Report 03/19/2021 12:13 pm Leandra Black APRN IMG US GEN ORDERAB LES documented in this encounter Visit Diagnoses Diagnosis Malignant melanoma of conjunctiva, left documented in this encounter Care Teams Communications Systems Engineer Relationship Specialty Start Date End Date LuisE Narayan MD [facility] [place] [address] PCP - General Family Medicine 03/26/19 01/19/22 documented as of this encounter
--- OUTSIDE RECORDS SUMMARY | 2024-04-15 15:55 | XMS_ITS | Encounter Summary ---
Author Organization [facility] Address [facility] [place] [address] Care Team Providers Care Excavator Operator Name Role Phone Luis E Narayan MD Primary Care Provider +1- [phone] Encounter Details Date Type Department Care Team (Late st Contact Info) Description 05/07/2021 Refill Family Medicine at [facility] [address] [place] [address] Luis E Narayan MD [facility] DR LIL[address] [place]EV[address] [address] Social History Tobacco Use Types Packs/Day Years [...] AM EDT Appointment Mammography/[place] [address] Rodney Padilla MD 05/01/2024 1:45 PM EDT Office [place] [address] Juanpablo Hernandez MD [facility] [place] [address] 05/23/2024 2:45 PM EST Clinical Support Family Medicine at [facility] [address] [place] [address] Julia Low, [facility] 01/30/2025 1:30 PM EDT Laboratory Appointment Lab at [facility] Hematology Oncology [address] [place] [address] 01/30/2025 3:[address] [place] [address] Arturo Cordero MD [facility] HEMATOLOGY [place] [address] 01/30/2025 4:15 PM EDT Office Visit Hematology [place] [address] Arturo Cordero MD [facility] DR HEMATOLOGY [place] [address] documented as of this encounter Visit Diagnoses Not on filedocumented in this encounter Care Teams Excavator Operator Relationship Specialty Start Date End Date Luis E Narayan MD [facility] DR [address] [place] [address] PCP - General Family Medicine 03/26/19 01/19/22 documented as of this encounter
--- OUTSIDE RECORDS SUMMARY | 2024-04-15 15:55 | XMS_ITS | Encounter Summary ---
Author Organization [facility] [place] [address] Care Team Providers Care Tub Tender Name Role Phone Luis E Narayan MD Primary Care Provider [phone] Encounter Details Date Type Department Care Team (Late st Contact Info) Description 03/31/2021 Orders Only Family Medicine at [address] [place] [address] Alejandra Posadas, RN Social History Tobacco Use [...] 05/01/2024 11:20 AM EDT Appointment Mammography/DXA at [place] [phone] Rodney Padilla MD 05/01/2024 1:45 PM EDT Office Visit Ophthalmology at [place] [phone] Juanpablo Hernandez MD [facility] [place] [address] 05/23/2024 2:45 PM EST Clinical Support Family Medicine at [facility] [address] [place] [address] Julia Low [facility] 01/30/2025 1:30 PM EDT Laboratory Appointment Lab at [facility] Hematology Oncology [address] [place] [address] 01/30/2025 3:[address] [place] [address] Arturo Cordero MD [facility] [place] [address] 01/30/2025 4:15 PM EDT Office Visit Hematology [place] [address] Arturo Cordero MD [facility] [place]OLOG[place] [address] documented as of this encounter Visit Diagnoses Not on filedocumented in this encounter Care Teams Tub Tender Relationship Specialty Start Date End Date Luis E Narayan MD [facility] [address] [place] [address] PCP - General Family Medicine 03/26/19 01/19/22 documented as of this encounter
--- OUTSIDE RECORDS SUMMARY | 2024-04-15 15:55 | XMS_ITS | Encounter Summary ---
Author Organization [place] [address] Care Team Providers Care Manager Water Wastewater Name Role Phone Luis E Narayan MD Primary Care Provider [phone]- [phone] Reason for Visit * Reason Comments Eye Problem Malignant melanoma o f conjunctiva, left Encounter Details Date Type Department Care Team (Late st Contact Info) Description 11/06/2020 3:15 PM EDT Office [place] [address] Juanpablo Hernandez MD [facility] [place] [address] Malignant melanoma of conjunctiva, left Social History [...] 05/01/2024 11:20 AM EDT Appointment Mammography/[place] [address] Rodney Padilla MD 05/01/2024 1:45 PM EDT [place] [address] Juanpablo Hernandez MD [facility] [place] [address] 05/23/2024 2:45 PM EST Clinical Support Family Medicine at [facility] [address] [place] [address] Julia Low, [facility] 01/30/2025 1:30 PM EDT Laboratory Appointment Lab at [facility] [place] Hematology Oncology [address] [place] [address] 01/30/2025 3:[address] [place] [address] Arturo Cordero MD [facility] HEMATOLOGY [place] [address] 01/30/2025 4:15 PM EDT Office Visit [place]ology [place] [address] Arturo Cordero MD [facility] DR HEMATOLOGY [place] [address] documented as of this encounter Visit Diagnoses Diagnosis Malignant melanoma of conjunctiva, left documented in this encounter Care Teams Manager Water Wastewater Relationship Specialty Start Date End Date Luis E Narayan MD [facility] [address] [place] [address] PCP - General Family Medicine 03/26/19 01/19/22 documented as of this encounter
--- OUTSIDE RECORDS SUMMARY | 2024-04-15 15:55 | XMS_ITS | Encounter Summary ---
Author Organization [facility] Address [facility] [place] [address] Care Team Providers Care Food Cashier Name Role Phone Luis E Narayan MD Primary Care Provider [phone]- [phone] Reason for Visit * Reason Onset Date Comments Medication Refill 01/07/2021 Encounter Details Date Type Department Care Team (Late st Contact Info) Description 01/07/2021 Refill Family Medicine at [facility] [address] [place] [address] Luis E Narayan MD [facility] DR [address] [address] Type 2 diabetes mellitus without long-term current [...] 05/01/2024 11:20 AM EDT Appointment Mammography/[place] [address] Rodney Padilla MD 05/01/2024 1:45 PM EDT Office [place] [address] Juanpablo Hernandez MD [facility] [place] [address] 05/23/2024 2:45 PM EST Clinical Support Family Medicine at [facility] [address] [place] [address] Julia Low RPH 01/30/2025 1:30 PM EDT Laboratory Appointment Lab at [facility] Hematology Oncology [address] [place] [address] 01/30/2025 3:[address] [place] [address] Arturo Cordero MD [facility] [place] [address] 01/30/2025 4:15 PM EDT Office Visit Hematology [place] [address] Arturo Cordero MD [facility] [place] [address] documented as of this encounter Visit Diagnoses Diagnosis Type 2 diabetes mellitus without long-term current use of insulin documented in this encounter Care Teams Food Cashier Relationship Specialty Start Date End Date Luis E Narayan MD [facility] [address] [place] [address] PCP - General Family Medicine 03/26/19 01/19/22 documented as of this encounter
--- OUTSIDE RECORDS SUMMARY | 2024-04-15 15:56 | XMS_ITS | Encounter Summary ---
Author Organization [facility] Address [facility] [place] [address] Care Team Providers Care Gasket Inspector Name Role Phone Daryn Garrett MD Primary Care Provider Reason for Visit * Reason Onset Date Comments Medication Refill 09/12/2020 Encounter Details Date Type Department Care Team (Late st Contact Info) Description 09/12/2020 Refill Family Medicine at [facility] [address] [place] [address] Camilla Carrera MD [facility] [place] [address] Social History Tobacco Use Types Packs/Day Years [...] AM EDT Appointment Mammography/[place] [address] Rodney Padilla MD 05/01/2024 1:45 PM EDT Office [place] [address] Juanpablo Hernandez MD [facility] [place] [address] 05/23/2024 2:45 PM EST Clinical Support Family Medicine at [facility] [address] [place] [address] Julia Low, [facility] 01/30/2025 1:30 PM EDT Laboratory Appointment Lab at [facility] Hematology Oncology [address] [place] [address] 01/30/2025 3:[address] [place] [address] Arturo Cordero MD [facility] [place] [address] 01/30/2025 4:15 PM EDT Office Visit Hematology [place] [address] Arturo Cordero MD [facility] [place] [address] documented as of this encounter Visit Diagnoses Not on filedocumented in this encounter Care Teams Gasket Inspector Relationship Specialty Start Date End Date Daryn Garrett MD [facility] [address] [place] [address] PCP - General 04/10/24 documented as of this encounter
--- OUTSIDE RECORDS SUMMARY | 2024-04-15 15:56 | XMS_ITS | Encounter Summary ---
Author Organization [facility] [place] [address] Care Team Providers Care Account Executive Key Accounts Name Role Phone Luis E Narayan MD Primary Care Provider +1- [phone] Reason for Visit * Reason Onset Date Comments Questions 08/18/2020 Encounter Details Date Type Department Care Team (Late st Contact Info) Description 08/18/2020 Telephone Family Medicine at [facility] [address] [place] [address] Susanna Lopes, POWERHOUSE ENGINEER Questions Social History Tobacco Use Types Packs/Day [...] to get ECHO and stress test at [facility] done as outpatient Dr. Barbosa. Cardiology at will follow with these results. She will call [facility] to schedule this testing. * Telephone Encounter - Susanna Lopes LNA - 08/18/2020 11:24 AM EST Message: Patient is calling to speak with team regarding her recent visit to [facility]. Patient states she was supposed to [...] send my- message: N Offered Appointment: N MA/Nurse/Cutler contacted via: Message: Y Call: N Pager: N documented in this encounter Plan of Treatment Upcoming Encounters Date Type Department Care Team (Late st Contact Info) Description 05/01/2024 11:20 AM EDT Appointment Mammography/DXA at [place] [phone] Rodney Padilla MD 05/01/2024 1:45 PM EDT Office Visit Ophthalmology at [address] Juanpablo Hernandez MD [facility] [place] [address] 05/23/2024 2:45 PM EST Clinical Support Family Medicine at [facility] [address] [place] [address] Julia Low [facility] 01/30/2025 1:30 PM EDT Laboratory Appointment Lab at [facility] [place] [address] [place] [address] 01/30/2025 3:[address] Scan at [place] [phone] Arturo Cordero MD [facility] [place] [address] 01/30/2025 4:15 PM EDT Office Visit [place]ematology [place] [address] Arturo Cordero MD [facility] DR [place] [address] documented as of this encounter Visit Diagnoses Not on filedocumented in this encounter Care Teams Account Executive Key Accounts Relationship Specialty Start Date End Date Luis E Narayan MD [facility] DR [address]IL[address] WALKER-FAMILY MEDICINE [place], [place] [address] PCP - General Family Medicine 03/26/19 01/19/22 documented as of this encounter
--- OUTSIDE RECORDS SUMMARY | 2024-04-15 15:56 | XMS_ITS | Encounter Summary ---
Author Organization [facility] [place] [address] Care Team Providers Care Berry Picker Name Role Phone Luis E Narayan MD Primary Care Provider +1- [phone] Reason for Visit * Reason Onset Date Comments Follow-up 08/14/2020 Encounter Details Date Type Department Care Team (Late st Contact Info) Description 08/14/2020 [place] [address] Juanpablo Hernandez MD [facility] [address] Follow-up Social History Tobacco Use Types Packs/Day [...] afternoon and wouldgive her a ring tomorrow. [phone] * Telephone Encounter - Chantell Dukes - [...] still can't see the claim made from [employer]. We went around and she states that [...] hospital[facility] [place] [facility] [place]. [facility] pharmacy called back and spoke with Hillary to state that they do not compound. I called [facility] pharmacy and spoke with a Kati and [...] walked me through the PA process for [place] [employer] and where to find the forms. They also gave me the name of 2 pharmacies that compound. I left a message for [facility] to see if they compound mytomicin drops. I also called the other pharmacy [facility] tosee if they compound mytomicin into drops and they do not. Working on PA to send in today documented in this encounter Plan of Treatment Upcoming Encounters Date Type Department Care Team (Late st Contact Info) Description 05/01/2024 11:20 AM EDT Appointment Mammography/[place] [address] Rodney Padilla MD 05/01/2024 1:45 PM EDT Office [place] [address] Juanpablo Hernandez MD [facility] [place] [address] 05/23/2024 2:45 PM EST Clinical Support Family Medicine at [facility] [address] [place] [address] Julia Low, [facility] 01/30/2025 1:30 PM EDT Laboratory Appointment Lab at [facility] Hematology Oncology [address] [place] [address] 01/30/2025 3:[address] [place] [address] Arturo Cordero MD [facility] [place] [address] 01/30/2025 4:15 PM EDT Office Visit [place]ematology [place] [address] Arturo Cordero MD [facility] [place] [address] documented as of this encounter Visit Diagnoses Not on filedocumented in this encounter Care Teams Berry Picker Relationship Specialty Start Date End Date Luis E Narayan MD [facility] DR [address] [place] [address] PCP - General Family Medicine 03/26/19 01/19/22 documented as of this encounter
--- OUTSIDE RECORDS SUMMARY | 2024-04-15 15:56 | XMS_ITS | Encounter Summary ---
Author Organization [facility] Address [facility] [place] [address] Care Team Providers Care Refrigeration Installer Name Role Phone Luis E Narayan MD Primary Care Provider +1- [phone] Reason for Visit * Reason Onset Date Comments Other 08/21/2020 Encounter Details Date Type Department Care Team (Late st Contact Info) Description 08/21/2020 Telephone Family Medicine at [facility] [address] [place] [address] Deana Akers Other Social History Tobacco Use [...] regarding copies of test results. Patient states [facility] staff is faxing over these results to the office today . FYI. Ask caller their first and last name and relationship to the patient: self Best time to call back: anytime Ok to leave a message: y Ok to send [facility] message: n Offered Appointment: n MA/Nurse/User Interface Designer contacted via: Message: y Call: n Pager: n documented in this encounter Plan of Treatment Upcoming Encounters Date Type Department Care Team (Late st Contact Info) Description 05/01/2024 11:20 AM EDT Appointment Mammography/DXA at [place] [phone] Rodney Padilla MD 05/01/2024 1:45 PM EDT Office Visit Ophthalmology at [place] [phone] Juanpablo Hernandez MD [facility] [place] [place] [address] 05/23/2024 2:45 PM EST Clinical Support Family Medicine at [address] [phone] Julia Low, [facility] 01/30/2025 1:30 PM EDT Laboratory Appointment Lab at [facility] Hematology Oncology [address] [place] [address] 01/30/2025 3:[address] Scan at [place] [phone] Arturo Cordero MD [facility] [place] [address] 01/30/2025 4:15 PM EDT Office Visit Hematology and Oncology at [place] [phone] Arturo Cordero MD [facility] [place] [address] documented as of this encounter Visit Diagnoses Not on filedocumented in this encounter Care Teams Refrigeration Installer Relationship Specialty Start Date End Date Luis E Narayan MD [facility] [address] [address] PCP - General Family Medicine 03/26/19 01/19/22 documented as of this encounter
--- OUTSIDE RECORDS SUMMARY | 2024-04-15 15:56 | XMS_ITS | Encounter Summary ---
Author Organization [facility] [place] [address] Care Team Providers Care Oil Well Logging Engineer Name Role Phone Luis E Narayan MD Primary Care Provider Reason for Visit * Reason Onset Date Comments Back Pain 10/20/2020 Encounter Details Date Type Department Care Team (Late st Contact Info) Description 10/20/2020 Refill Internal Medicine at [facility] [address] [place] [address] Cara Tohmas, box worker bilateral low back pain without sciatica Social [...] the flexeril is called in, she should garbage pick up man albert. Advised that before a steroid is [...] 11:20 AM EDT Appointment Mammography/DXA at [place] [phone] Rodney Padilla MD 05/01/2024 1:45 PM EDT Office Visit Ophthalmology at [place] [phone] Juanpablo Hernandez MD [facility] [place] [address] 05/23/2024 2:45 PM EST Clinical Support Family Medicine at [address] [phone] Julia Low, [facility] 01/30/2025 1:30 PM EDT Laboratory Appointment Lab at [facility] Hematology Oncology [address] [place] [address] 01/30/2025 3:[address] [place] [address] Arturo Cordero MD [facility] [place] [address] 01/30/2025 4:15 PM EDT Office Visit Hematology [place] [address] Arturo Cordero MD [facility] [place] [address] documented as of this encounter Visit Diagnoses Diagnosis Chronic bilateral low back pain without sciatica documented in this encounter Care Teams Oil Well Logging Engineer Relationship Specialty Start Date End Date Luis E Narayan MD [facility] [address] [place] [address] PCP - General Family Medicine 03/26/19 01/19/22 documented as of this encounter
--- OUTSIDE RECORDS SUMMARY | 2024-04-15 15:56 | XMS_ITS | Encounter Summary ---
Author Organization [facility] [place] [address] Care Team Providers Care Optical Technician Name Role Phone Luis E Narayan MD Primary Care Provider Encounter Details Date Type Department Care Team (Late st Contact Info) Description 08/17/2020 Notes Only Hematology [place] [address] Boogie Munroe MD [facility] DR HEMATOLOGY/[place] [address] Social History Tobacco Use Types Packs/Day Years [...] 05/01/2024 11:20 AM EDT Appointment Mammography/[place] [address] Rodney Padilla MD 05/01/2024 1:45 PM EDT Office Visit Ophthalmology at [place] [phone] Juanpablo Hernandez MD [facility] [place] [address] 05/23/2024 2:45 PM EST Clinical Support Family Medicine at [place] [address] [place] [address] [facility] 01/30/2025 1:30 PM EDT Laboratory Appointment Lab at [facility] Hematology Oncology [address] [place] [address] 01/30/2025 3:[address] [place] [address] Arturo Cordero MD [facility] DR HEMATOLOGY [place] [address] 01/30/2025 4:15 PM EDT Office Visit Hematology [place] [address] Arturo Cordero MD [facility] DR HEMATOLOGY [place] [address] documented as of this encounter Visit Diagnoses Not on filedocumented in this encounter Care Teams Optical Technician Relationship Specialty Start Date End Date Luis E Narayan MD [facility] DR [facility] [address] PCP - General Family Medicine 03/26/19 01/19/22 documented as of this encounter
--- OUTSIDE RECORDS SUMMARY | 2024-04-15 15:56 | XMS_ITS | Encounter Summary ---
Author Organization [facility] [place] [address] Care Team Providers Care International Editorial Producer Name Role Phone Luis E Narayan MD Primary Care Provider [phone]- [phone] Encounter Details Date Type Department Care Team (Late st Contact Info) Description 08/17/2020 Telephone Cardiology at [address] [address] Anthony Barbosa MD [facility] [place] [address] Social History Tobacco Use Types Packs/Day Years [...] PM Referring Provider: Cindy CARLIN Patient Location: [facility] Presenting Symptoms per OSH: 59F with [...] Lower concern for an active plaque rupture IA. - Recommended to trend trops and assess [...] 05/01/2024 11:20 AM EDT Appointment Mammography/[place] [address] Rodney Padilla MD 05/01/2024 1:45 PM EDT [place] [address] Juanpablo Hernandez MD [facility] [address] 05/23/2024 2:45 PM EST Clinical Support Family Medicine at [address] [place] [address] Julia Low [facility] 01/30/2025 1:30 PM EDT Laboratory Appointment Lab [place] [facility] [place] [address] [place] [address] 01/30/2025 3:[address] Scan at [place] [phone] Arturo Cordero MD [facility] DR HEMATOLOGY [place] [address] 01/30/2025 4:15 PM EDT Office Visit [place] [phone] Arturo Cordero MD [facility] DR HEMATOLOGY [place] [address] documented as of this encounter Visit Diagnoses Not on filedocumented in this encounter Care Teams International Editorial Producer Relationship Specialty Start Date End Date Luis E Narayan MD [facility] DR [facility] [address] PCP - General Family Medicine 03/26/19 01/19/22 documented as of this encounter
--- OUTSIDE RECORDS SUMMARY | 2024-04-15 15:56 | XMS_ITS | Encounter Summary ---
[place] [address] Care Team Providers Care Mica Spreader Name Role Phone Luis E Narayan MD Primary Care Provider Reason for Visit * Reason Comments Melanoma Encounter Details Date Type Department Care Team (Late st Contact Info) Description 08/28/2020 2:30 PM EST Office [place] [address] Juanpablo Hernandez MD [facility] [place] [address] Malignant melanoma of conjunctiva, left Social History [...] AM EDT Appointment Mammography/[place] [address] Rodney Padilla MD 05/01/2024 1:45 PM EDT Office [place] [address] Juanpablo Hernandez MD [facility] [place] [address] 05/23/2024 2:45 PM EST Clinical Support Family Medicine at [facility] [address] [place] [phone] Julia Low, [facility] 01/30/2025 1:30 PM EDT Laboratory Appointment Lab at [facility] Hematology Oncology [address] [place] [address] 01/30/2025 3:[address] [place] [phone] Arturo Cordero MD [facility] DR [place] [address] 01/30/2025 4:15 PM EDT Office Visit Hematology [place] [phone] Arturo Cordero MD [facility] DR [place] [address] documented as of this encounter Visit Diagnoses Diagnosis Malignant melanoma of conjunctiva, left documented in this encounter Care Teams Mica Spreader Relationship Specialty Start Date End Date Luis E Narayan MD [facility] DR [facility] [place] [address] PCP - General Family Medicine 03/26/19 01/19/22 documented as of this encounter
--- OUTSIDE RECORDS SUMMARY | 2024-04-15 15:56 | XMS_ITS | Encounter Summary ---
Author Organization [facility] [place] [address] Care Team Providers Care Production Aide Name Role Phone Luis E Narayan MD Primary Care Provider Encounter Details Date Type Department Care Team (Late st Contact Info) Description 08/24/2020 Telephone [address] Medicine at [facility] [address] [place] [phone] Debbie Brice, CCMA Social History Tobacco Use [...] 05/01/2024 11:20 AM EDT Appointment Mammography/[place] [address] Rodney Padilla MD 05/01/2024 1:45 PM EDT Office Visit Ophthalmology at [place] [phone] Juanpablo Hernandez MD [facility] [place] [address] 05/23/2024 2:45 PM EST Clinical Support Family Medicine at [place] [address] [address] Julia Low, [facility] 01/30/2025 1:30 PM EDT Laboratory Appointment Lab at [facility] Hematology Oncology [address] [place] [address] 01/30/2025 3:[address] Scan at [place] [phone] Arturo Cordero MD [facility] [place] [address] 01/30/2025 4:15 PM EDT Office Visit Hematology [place] [phone] Arturo Cordero MD [facility] [place] [address] documented as of this encounter Visit Diagnoses Not on filedocumented in this encounter Care Teams Production Aide Relationship Specialty Start Date End Date Luis E Narayan MD [facility] DR [facility] [place] [address] PCP - General Family Medicine 03/26/19 01/19/22 documented as of this encounter
--- OUTSIDE RECORDS SUMMARY | 2024-04-15 15:56 | XMS_ITS | Encounter Summary ---
[place] [address] Care Team Providers Care Front Counter Clerk Name Role Phone Luis E Narayan MD Primary Care Provider Reason for Visit * Reason Comments Chest Pain Encounter Details Date Type Department Care Team (Late st Contact Info) Description 09/11/2020 2:09 PM EST - 09/11/2020 5:51 PM EST [place] [address] Hair Tanner MD [facility] [place] [address] Costochondritis; Constipation, unspecified constipation type Discharge Disposition: [...] be sent through Care Everywhere. * Costochondritis (Kosovan) * Constipation ([place]ovan) documented in this encounter Medications at Time of Discharge Medication Sig Dispensed Refills Start Date End Date traZODone (Desyrel) 100 mg Tablet Take 1 tablet by mouth nightly. 90 tablet 3 06/26/2020 aspirin EC 81 mg Tablet, Delayed Release (E.C.) Take 81 mg by mouth daily. fluticasone propionate (FLONASE) 50 mcg/actuation [place], Suspension 1 spray by Each Nare route [...] any dizziness with the movement * Elías Mrianda NRP - 09/11/2020 3:34 PM EST Assisted patient up to the bedside commode> She had some dizziness when she was in X-Ray when they sat her up from lying down. * Cnonor Gutierrez RN - 09/11/2020 3:00 PM EST [...] 10/10. Notably, pt was recently seen at [facility] on 08/17 for unrelated chest [...] uses inhalerswith good effect ??? Atherosclerosis of [place] coronary artery of [place] heart with angina pectoris 10/09/2007 History of [...] 3.47) performed by Juanpablo Hernandez MD at [facility] ??? PRO EXCIS CORNEA LESN Left 05/14/2020 EXCISION OF LESION, CORNEA, EXCEPT PTERYGIUM (WRVU 7.5) performed by Juanpablo Hernandez MD at [facility] ??? PRO LAP, PARTIAL NEPHRECTOMY Left 06/28/2019 LAPAROSCOPY, PARTIAL NEPHRECTOMY, ROBOTIC ASSIST (WRVU 27.41) performed by Avila Medina MD at [facility] MAIN OR ??? PRO PLACE AMNIOTIC MEMBRANE OCULAR SURFACE;SINGLE LAYER SUTURED Left 05/14/2020 PLACEMENT OF AMNIOTIC MEMBRANE ON THE OCULAR SURFACE,SINGLE LAYER,SUTURED (WRVU 2.5) performed by Juanpablo Hernandez MD at [facility] Social History:1PPD smoker, non-drinker, no [...] Doppler, and color-flow Echocardiogram Patient Location: Out-Patient Guest Service Agent: Arlen Coker RDCS (AE) Indications: Chest pain, [...] below. Electronically signed by: Chantal Ley MD, [facility] ([phone]), at 09/11/2020 3:52 PM XR Abdomen Flat [...] below. Electronically signed by: Chuy Tobar MD, [facility] ([phone]), at 09/11/2020 3:26 PM Assessment and Plan: [...] [x] None Exposure [] Recent travel outside [place] [] Contact with known or suspected positive [...] 05/01/2024 11:20 AM EDT Appointment Mammography/[place] [address] Rodney Padilla MD 05/01/2024 1:45 PM EDT Office [place] [address] Juanpablo Hernandez MD [facility] [place] [address] 05/23/2024 2:45 PM EST Clinical Support Family Medicine at [facility] [address] [place] [address] Devante Julia K, [facility] 01/30/2025 1:30 PM EDT Laboratory Appointment Lab at [facility] Hematology Oncology [address] [place] [address] 01/30/2025 3:[address] [place] [address] Arturo Cordero MD [facility] HEMATOLOGY [place] [address] 01/30/2025 4:15 PM EDT Office Visit Hematology [place] [address] Arturo Cordero MD [facility] [place]ATOLOG[place] [address] documented as of this encounter Procedures Procedure [...] ? Electronically signed by: Chuy Tobar MD, [facility] ([phone]), at 09/11/2020 3:26 PM Narrative 09/11/2020 3:26 [...] below. Electronically signed by: Chuy Tobar MD, [facility]([phone]), at 09/11/2020 3:26 PM Hair Tanner MD [...] ? Electronically signed by: Chantal Ley MD, [facility] ([phone]), at 09/11/2020 3:52 PM Narrative 09/11/2020 3:52 [...] below. Electronically signed by: Chantal Ley MD, [facility]([phone]), at 09/11/2020 3:52 PM Hair Tanner MD IMG DX ORDERABLES * Gold Tube HOLD (09/11/2020 2:45 PM EST) Gold Hold Sample in lab. [facility] Blood specimen (specimen) Venous Draw / Unknown 09/11/2020 2:45 PM EST 09/11/2020 2:55 PM EST Mal CARLIN CHEMISTRY ORDERABLES [facility] [place] [place] [address] * Blue Tube HOLD (09/11/2020 2:45 PM EST) [facility] Blue Hold Sample in lab. [facility] Blood specimen (specimen) Venous Draw / Unknown 09/11/2020 2:45 PM EST 09/11/2020 2:55 PM EST Mal CARLIN HEMATOLOGY ORDERABLE S [facility] [place] [address] * Differential, Automated (09/11/2020 2:45 PM EST) [facility] Neutrophil % 58.6 % [facility] Neutrophil Absolute 4.51 1.70 - 6.10 x10(3)/[facility] Lymph % 31.7 % [facility] Lymphocytes Abs 2.4 0.9 - 3.2 x10(3)/[facility] Monocyte % 7.4 % [facility] Monocyte Abs 0.6 0.3 - 0.9 x10(3)/[facility] Eos % 1.4 % [facility] Eosinophils Abs 0.1 0.0 - 0.4 x10(3)/[facility] Basophil % 0.6 % [facility] Baso Absolute 0.0 0.0 - 0.1 x10(3)/[facility] Immature Gran % 0.30 % [facility] Comment: Immature granulocytes(IG's)percentage and absolute count will include metamyelocytes, myelocytes, and promyelocytes. Blood smears from CBCs yielding IG's will be scanned manually for concordance. If this scan disagrees with the automated IG or if promyelocytes are noted, a manual differential will be performed. Immature Gran Absolute 0.02 0.00 - 0.04 x10(3)/[facility] Blood specimen (specimen) 09/11/2020 2:45 PM EST 09/11/2020 2:54 PM EST Narrative Resulting Agency Comment Spec In Lab Mal CARLIN HEMATOLOGY ORDERABLE S [facility] [place] [address] * (ABNORMAL) Hemogram (09/11/2020 2:45 PM EST) White Blood Cell 7.7 4.0 - 9.5 x10(3)/mc L [facility] Red Blood Cell 4.76 4.00 - 5.21 x10(6)/mc L [facility] Hemoglobin 13.7 11.7 - 15.5 gm/dL [facility] Hematocrit 40.8 35.7 - 45.8 % [facility] Mean Cell Volume 85.7 82.6 - 94.4 fL [facility] Mean Cell Hemoglobin 28.8 27.1 - 32.0 pg [facility] Mean Cell Hemoglobin Concentration 33.6 31.7 - 35.0 gm/dL [facility] Platelet 371(H) 145 - 357 x10(3)/mc L [facility] RDW Standard Deviation 41.8 37.0 - 46.0 fL [facility] RDW coefficient of variation 13.3 11.5 - 14.1 % [facility] Mean Platelet Volume 9.0 7.6 - 12.9 fL [facility] NRBC% auto 0.0 % [facility] NRBC Absolute 0.000 0.000 - 0.000 x10(3)/mc L [facility] Blood specimen (specimen) 09/11/2020 2:45 PM EST 09/11/2020 2:54 PM EST Narrative Resulting Agency Comment Spec In Lab Mal CARLIN HEMATOLOGY ORDERABLE S [facility] [place] [address] * Troponin (09/11/2020 2:45 PM EST) Troponin-T <0.01 0.00 - 0.00 ng/mL [facility] Comment: The 99th percentile for Troponin T is less than 0.01 ng/mL, any detectable cTnT concentration using this assay should be considered elevated. According to the third universal definition of myocardial infarction the following criteria with a clinical presentation consistent with acute myocardial ischemia meets the diagnosis for a myocardial infarction (AL). Detection of a rise and/or fall of cTnT, with at least one value greater than the 99th percentile (> or = 0.01) and with at least one of the following ?? Symptoms of ischemia ?? New or presumed new significant HD-ttvroiv-A wave (ST-T) changes or new left bundle [...] sample may be indicated. Reference: Third [place] Definition of Myocardial Infarction. Journal of the [employer] College of Cardiology 2012;60:1581-98 Blood specimen (specimen) 09/11/2020 2:45 PM EST 09/11/2020 2:54 PM EST Narrative Resulting Agency Comment Spec In Lab Juanpablo Nelson MD CHEMISTRY ORDERABLES [facility] [place] [address] * Lipase (09/11/2020 2:45 PM EST) Lipase 38 0 - 60 unit/L [facility] Blood specimen (specimen) 09/11/2020 2:45 PM EST 09/11/2020 2:54 PM EST Narrative Resulting Agency Comment Spec In Lab Juanpablo Nelson MD CHEMISTRY ORDERABLES [facility] [place] [address] * (ABNORMAL) Hepatic Function Panel (09/11/2020 2:45 PM EST) [facility] Protein, Total 7.5 6.1 - 8.0 gm/dL [facility] Albumin 4.6 3.2 - 5.2 gm/dL [facility] Aspartate Aminotransferase 20 0 - 30 unit/L [facility] Alanine Aminotransferase 22 0 - 30 unit/L [facility] Alkaline Phosphatase 115(H) 35 - 105 unit/L [facility] Bilirubin, Total 0.4 0.2 - 1.3 mg/dL [facility] Bilirubin, Direct 0.1 0.0 - 0.3 mg/dL [facility] Blood specimen (specimen) 09/11/2020 2:45 PM EST 09/11/2020 2:54 PM EST Narrative Resulting Agency Comment Spec In Lab Juanpablo Nelson MD CHEMISTRY ORDERABLES [facility] [place] [address] * Basic Metabolic Panel (non-fasting) (09/11/2020 2:45 PM EST) [facility] Glucose 89 65 - 199 mg/dL [facility] Comment:Diabetes: >=200 mg/d L plus symptoms Blood Urea Nitrogen 14 8 - 18 mg/dL [facility] Creatinine 0.88 0.70 - 1.20 mg/dL [facility] Sodium 141 135 - 145 mmol/L [facility] [...] mmol/L [facility] Anion Gap 13 5 - 15 mmol/L [facility] Calcium 9.5 8.5 - 10.5 mg/dL [facility] Est Glomerular Filtration Rate 71 >=60 mL/min/1. 73 m?? [facility] [...] In Lab Juanpablo Nelson MD CHEMISTRY ORDERABLES [facility] [place] [address] * EKG 12 Lead (09/11/2020 2:20 PM EST) Ventricular rate 75 BPM MUSE SYSTEM Atrial Rate 75 BPM MUSE SYSTEM P-R Interval 170 ms MUSE SYSTEM QRS Duration 92 ms MUSE SYSTEM Q-T Interval 390 ms MUSE SYSTEM QTC Calculated (Bezet) 435 ms MUSE SYSTEM Calculated P Pinon 53 degrees MUSE SYSTEM Calculated R Pinon 3 degrees MUSE SYSTEM Calculated T Pinon 54 degrees MUSE SYSTEM INTERPRETATION Normal sinus rhythm Normal ECG When compared with ECG of 14-FEB-2019 22:28, Aberrant conduction is no longer Present Confirmed by Radha Lawrence ([id number]) on 09/11/2020 7:23:38 PM MUSE SYSTEM 09/11/2020 2:20 PM EST 09/11/2020 7:23 PM EST Juanpablo Nelson MD ECG ORDERABLES [employer] [facility] documented in this encounter Visit Diagnoses [...] NRP) documented in this encounter Care Teams Front Counter Clerk Relationship Specialty Start Date End Date Luis E Narayan MD [facility] DR LILI [facility] [address] PCP - General Family Medicine 03/26/19 01/19/22 documented as of this encounter
--- OUTSIDE RECORDS SUMMARY | 2024-04-15 15:56 | XMS_ITS | Encounter Summary ---
[place] [address] Care Team Providers Care Music Internship Name Role Phone Luis E Narayan MD Primary Care Provider [phone]- [phone] Encounter Details Date Type Department Care Team (Latest Contact Info) Description 09/15/2020 12:00 PM EST Clinical [place] [address] Malika Ye Cigarette nicotine dependence without complication [...] EST ..Tobacco Treatment Consultation [place] ([place] [address] FAX: Alize Gramajo is a 59 y.o. female seen today for smoking cessation counseling. She is currently smoking [place] gold and does wish to quit soon. [...] in places where it is forbidden? (ex. synagogue) No Yes 1 3. Which cigarette would [...] The patient has been provided with a [facility] Smoking Cessation packet and offered a Forever [...] 34 Malika Ye 09/15/20 Tobacco Treatment Program [facility] documented in this encounter Plan of Treatment Upcoming Encounters Date Type Department Care Team (Late st Contact Info) Description 05/01/2024 11:20 AM EDT Appointment Mammography/[place] [address] Rodney Padilla MD 05/01/2024 1:45 PM EDT Office [place] [address] Juanpablo Hernandez MD [facility] [place] [place] [address] 05/23/2024 2:45 PM EST Clinical Support Family Medicine at [facility] [address] [place] [address] Julia Low, [facility] 01/30/2025 1:30 PM EDT Laboratory Appointment Lab at [facility] Hematology Oncology [address] [place] [address] 01/30/2025 3:[address] [place] [address] Arturo Cordero MD [facility] [place] [address] 01/30/2025 4:15 PM EDT Office Visit Hematology [place] [address] Arturo Cordero MD [facility] [place] [address] documented as of this encounter Visit Diagnoses Diagnosis Cigarette nicotine dependence without complication Tobacco use disorder documented in this encounter Care Teams Music Internship Relationship Specialty Start Date End Date Luis E Narayan MD [facility] [address] [place] [address] PCP - General Family Medicine 03/26/19 01/19/22 documented as of this encounter
--- OUTSIDE RECORDS SUMMARY | 2024-04-15 15:56 | XMS_ITS | Encounter Summary ---
Author Organization [facility] Address [facility] [place] [address] Care Team Providers Care Residential Program Worker Name Role Phone Daryn Garrett MD Primary Care Provider Reason for Visit * Reason Onset Date Comments Medication Refill 09/12/2020 Encounter Details Date Type Department Care Team (Late st Contact Info) Description 09/12/2020 Refill Family Medicine at [facility] [address] [place] [address] Luis E Narayan MD [facility] [address] LIL[address] [place] [address] Social History Tobacco Use Types Packs/Day Years [...] [place] [facility] [place] (including [place])? No 09/15/2020 Sex and Gender Information Value Date Recorded Sex Assigned at Not on file Gender Identity Not on file Sexual Orientation Not on file documented as of this encounter Plan of Treatment Upcoming Encounters Date Type Department Care Team (Late st Contact Info) Description 05/01/2024 11:20 AM EDT Appointment Mammography/[place] [address] Rodney Padilla MD 05/01/2024 1:45 PM EDT Office [place] [address] Juanpablo Hernandez MD [facility] [place] [address] 05/23/2024 2:45 PM EST Clinical Support Family Medicine at [facility] [address] [place] [address] Julia Low, [facility] 01/30/2025 1:30 PM EDT Laboratory Appointment Lab at [facility] Hematology Oncology [address] [place] [address] 01/30/2025 3:[address] [place] [address] Arturo Cordero MD [facility] [place] [address] 01/30/2025 4:15 PM EDT Office Visit Hematology [place] [address] Arturo Cordero MD [facility] [place] [address] documented as of this encounter Visit Diagnoses Not on filedocumented in this encounter Care Teams Residential Program Worker Relationship Specialty Start Date End Date Daryn Garrett MD [facility] DR [place] [address] PCP - General 04/10/24 documented as of this encounter
--- OUTSIDE RECORDS SUMMARY | 2024-04-15 15:56 | XMS_ITS | Encounter Summary ---
Author Organization Pending [facility] [place] [address] Care Team Providers Care Entry Level Project Engineer Name Role Phone Luis E Narayan MD Primary Care Provider [phone] Encounter Details Date Type Department Care Team (Late st Contact Info) Description 09/14/2020 Telephone Family Medicine at [facility] [address] [place] [address] Silvio Alonzo Social History Tobacco Use Types [...] EST Records faxed to law office at [phone] * Telephone Encounter - Silvio Alonzo - [...] Narayan MD Subject:Other Dr. Narayan, my disability pastoral worker sent you some paperwork. I know you [...] 05/01/2024 11:20 AM EDT Appointment Mammography/[place] [address] Rodney Padilla MD 05/01/2024 1:45 PM EDT Office [place] [address] Juanpablo Hernandez MD [facility] [place] [address] 05/23/2024 2:45 PM EST Clinical Support Family Medicine at [facility] [address] [place] [address] Julia Low, [facility] 01/30/2025 1:30 PM EDT Laboratory Appointment Lab at [facility] Hematology Oncology [address] [place] [address] 01/30/2025 3:[address] [place] [address] Arturo Cordero MD [facility] DR HEMATOLOGY [place] [address] 01/30/2025 4:15 PM EDT Office Visit Hematology [place] [address] Arturo Cordero MD [facility] DR HEMATOLOGY AND ONCOLOGY [place], [place] [address] documented as of this encounter Visit Diagnoses Not on filedocumented in this encounter Care Teams Entry Level Project Engineer Relationship Specialty Start Date End Date Luis E Narayan MD [facility] DR LIL[address] WALKER-[place] [address] PCP - General Family Medicine 03/26/19 01/19/22 documented as of this encounter
--- OUTSIDE RECORDS SUMMARY | 2024-04-15 15:56 | XMS_ITS | Encounter Summary ---
Author Organization [facility] [place] [address] Care Team Providers Care Glue Machine Operator Name Role Phone Luis E Narayan MD Primary Care Provider [phone] Reason for Visit * Reason Onset Date Comments Medication Problem 08/10/2020 Pharmacist as micha for call back Encounter Details Date Type Department Care Team (Late st Contact Info) Description 08/10/2020 Telephone [place] [address] Juanpablo Hernandez MD [facility] [place] [address] Medication Problem (Pharmacist asking for call back) [...] ??3:15 PM Author Type: Physician Status: Signed Field Artillery Radar Operator: Juanpablo Hernandez MD (Physician) Encounter Diagnosis Name [...] 05/01/2024 11:20 AM EDT Appointment Mammography/[place] [address] Rodney Padilla MD 05/01/2024 1:45 PM EDT Office [place] [address] Juanpablo Hernandez MD [facility] [place] [address] 05/23/2024 2:45 PM EST Clinical Support Family Medicine at [facility] [address] [place] [address] Julia Low [facility] 01/30/2025 1:30 PM EDT Laboratory Appointment Lab at [facility] Hematology Oncology [address] [place] [address] 01/30/2025 3:[address] [place] [address] Arturo Cordero MD [facility] [place] [address] 01/30/2025 4:15 PM EDT Office Visit Hematology [place] [address] Arturo Cordero MD [facility] [place] [address] documented as of this encounter Visit Diagnoses Not on filedocumented in this encounter Care Teams Glue Machine Operator Relationship Specialty Start Date End Date Luis E Narayan MD [facility] DR LIL[address] [place] [address] PCP - General Family Medicine 03/26/19 01/19/22 documented as of this encounter
--- OUTSIDE RECORDS SUMMARY | 2024-04-15 15:56 | XMS_ITS | Encounter Summary ---
Author Organization [facility] [place] [address] Care Team Providers Care Rod Tape Operator Name Role Phone Luis E Narayan MD Primary Care Provider [phone] Reason for Referral * Physical Therapy (Routine) - Closed Specialty Diagnoses / Procedures Referred By Gonzalez kumari Referred To Contact Physical Therapy Diagnoses Degenerative disc disease, lumbar Troy Moscoso PA [facility] DR LILI [place] [address] Physical Therapy, [address] [address] Referral ID Status Reason Start Date Expiration Date V isits Requested Visits Authorized [id number] Closed Evaluate and Treat 10/21/2020 04/19/2021 12 12 Reason for Visit * Reason Comments Low Back Pain With Radicular Pain Encounter Details Date Type Department Care Team (Late st Contact Info) Description 10/21/2020 9:20 AM EDT Office Visit Internal Medicine at [facility] [address] [place] [address] Troy Moscoso PA [facility] DR LILI [place] [address] Type 2 diabetes mellitus without long-term current [...] 10/21/2020 9:20 AM EDT PRIMARY CARE AT [facility] [address] [facility] [address] CHIEF COMPLAINT Alize Gramajo is a 59 [...] 0 ??? fluticasone propionate (FLONASE) 50 mcg/actuation [place], Suspension, 1 spray by Each Nare route2 [...] Disp: 90 tablet, Rfl: 3 ??? lancets [facility], Use for twice daily testing, Disp: 100 each, Rfl: 11 ??? blood sugar diagnostic strips Strip, Use as instructed, Disp: 100 each, Rfl: 12 ??? Blood-Glucose Meter [facility], Use twice daily, Disp: 1 each, Rfl: [...] uses inhalerswith good effect ??? Atherosclerosis of [place] coronary artery of [place] heart with angina pectoris 10/09/2007 History of [...] 3.47) performed by Juanpablo Hernandez MD at [facility] ??? PRO EXCIS CORNEA LESN Left 05/14/2020 EXCISION OF LESION, CORNEA, EXCEPT PTERYGIUM (WRVU 7.5) performed by Juanpablo Hernandez MD at [facility] ??? PRO LAP, PARTIAL NEPHRECTOMY Left 06/28/2019 LAPAROSCOPY, PARTIAL NEPHRECTOMY, ROBOTIC ASSIST (WRVU 27.41) performed by Avila Medina MD at [facility] MAIN OR ??? PRO PLACE AMNIOTIC MEMBRANE OCULAR SURFACE;SINGLE LAYER SUTURED Left 05/14/2020 PLACEMENT OF AMNIOTIC MEMBRANE ON THE OCULAR SURFACE,SINGLE LAYER,SUTURED (WRVU 2.5) performed by Juanpablo Hernandez MD at [facility] FAMILY HISTORY Family History Problem Relation [...] QTC Calculated (Bezet) 435 ms Calculated P [place] 53 degrees Calculated R [place] 3 degrees Calculated T [place] 54 degrees INTERPRETATION Normal sinus rhythm Normal ECG When compared with ECG of 14-FEB-2019 22:28, Aberrant conduction is no longer Present Confirmed by Radha Lawrence ([id number]) on 09/11/2020 7:23:38 PM PHYSICAL EXAM Gen: [...] in these patients send serum separator tube ([facility]) for subsequent determinations. Contact the Clinical [...] ischemia ?? New or presumed new significant DO-hmefgpz-T wave (ST-T) changes or new left bundle [...] additional sample may be indicated. Reference: Third [place] Definition of Myocardial Infarction. Journal of the [place] [employer] 2012;60:1581-98 ??? Ventricular rate 09/11/2020 75 BPM Final ??? Atrial Rate 09/11/2020 75 BPM Final ??? P-R Interval 09/11/2020 170 ms Final ??? QRS Duration 09/11/2020 92 ms Final ??? Q-T Interval 09/11/2020 390 ms Final ??? QTC Calculated (Bezet) 09/11/2020 435 ms Final ??? Calculated P [place] 09/11/2020 53 degrees Final ??? Calculated R [place] 09/11/2020 3 degrees Final ??? Calculated T [place] 09/11/2020 54 degrees Final ??? INTERPRETATION 09/11/2020 Final Value:Normal sinus rhythm Normal ECG When compared with ECG of 14-FEB-2019 22:28, Aberrant conduction is no longer Present Confirmed by Radha Lawrence ([id number]) on 09/11/2020 7:23:38 PM ??? WBC 09/11/2020 [...] Diagnosis Code ??? Coronary artery disease involving [place] coronary artery of [place] heart with angina pectoris I25.119 ??? Altered [...] 05/01/2024 11:20 AM EDT Appointment Mammography/[place] [address] Rodney Padilla MD 05/01/2024 1:45 PM EDT Office [place] [address] Juanpablo Hernandez MD [facility] [place] [address] 05/23/2024 2:45 PM EST Clinical Support Family Medicine at [facility] [address] [place] [address] Julia Low, [facility] 01/30/2025 1:30 PM EDT Laboratory Appointment Lab at [facility] Hematology Oncology [address] [place] [address] 01/30/2025 3:[address] [place] [address] Arturo Cordero MD [facility] DR [place] [address] 01/30/2025 4:15 PM EDT Office Visit Hematology [place] [address] Arturo Cordero MD [facility] DR [place] [address] Scheduled Referrals Name Type Priority Associated Diagnoses [...] Hemoglobin A1c 7.8(H) 4.3 - 5.6 % [facility] [...] 36: Suppl. 1, S67-74 Estimated Average Glucose 177 mg/dL [facility] Comment: eAG [...] into estimated average glucose values. ??Diabetes Care 2008:31(8):2832-8867. Blood specimen (specimen) 10/21/2020 10:20 AM EDT 10/21/2020 1:48 PM EDT Narrative Resulting Agency Comment Spec In Lab Bertha Maxwell MD CHEMISTRY ORDERABLES [facility] [place] [address] documented in this encounter Visit Diagnoses Diagnosis Type 2 diabetes mellitus without long-term current use of insulin Degenerative disc disease, lumbar Degeneration of lumbar or lumbosacral intervertebral disc BPPV (benign paroxysmal positional vertigo), right documented in this encounter Care Teams Rod Tape Operator Relationship Specialty Start Date End Date Luis E Narayan MD [facility] [place] [address] PCP - General Family Medicine 03/26/19 01/19/22 documented as of this encounter
--- OUTSIDE RECORDS SUMMARY | 2024-04-15 15:56 | XMS_ITS | Encounter Summary ---
Author Organization [facility] Address [facility] [place] [address] Care Team Providers Care Bridge Tender Name Role Phone Luis E Narayan MD Primary Care Provider [phone] Reason for Visit * Reason Comments Tearing Encounter Details Date Type Department Care Team (Late st Contact Info) Description 09/15/2020 12:15 PM EST Office [place] [address] Marco Antonio Godwin MD [facility] [place] [address] Malignant melanoma of conjunctiva, left Social History [...] to get to her PCP appointment at [facility]. We will arrange for punctal plug placement later this afternoon or tomorrow. OK to skip a dose of the [facility] in anticipation of plug being replaced. Sooner MYRA Maria. MD Tato documented in this encounter Plan of Treatment Upcoming Encounters Date Type Department Care Team (Late st Contact Info) Description 05/01/2024 11:20 AM EDT Appointment Mammography/[place] [address] Rodney Padilla MD 05/01/2024 1:45 PM EDT Office Visit Ophthalmology at [place] [phone] Juanpablo Hernandez MD [facility] [place] [address] 05/23/2024 2:45 PM EST Clinical Support Family Medicine at [facility] [address] [place] [address] Julia Lwo, [facility] 01/30/2025 1:30 PM EDT Laboratory Appointment Lab at [facility] Hematology Oncology [address] [place] [address] 01/30/2025 3:[address] Scan at [place] [phone] Arturo Cordero MD [facility] DR HEMATOLOGY [place] [address] 01/30/2025 4:15 PM EDT Office Visit Hematology [place] [address] Arturo Cordero MD [facility] DR HEMATOLOGY [place] [address] documented as of this encounter Visit Diagnoses Diagnosis Malignant melanoma of conjunctiva, left documented in this encounter Care Teams Bridge Tender Relationship Specialty Start Date End Date Luis E Narayan MD [facility] DR LIL[address] WALKER[facility] [address] PCP - General Family Medicine 03/26/19 01/19/22 documented as of this encounter
--- OUTSIDE RECORDS SUMMARY | 2024-04-15 15:56 | XMS_ITS | Encounter Summary ---
Author Organization [facility] [place] [address] Care Team Providers Care Information Technology Project Manager Name Role Phone Luis E Narayan MD Primary Care Provider [phone] Encounter Details Date Type Department Care Team (Latest Contact Info) Description 09/15/2020 9:26 AM EST - 09/15/2020 11:59 PM EST Hospital [place] [address] Shane Cordero MD [facility] DR [place] [address] Malignant melanoma of conjunctiva, left Discharge Disposition: [...] 09/15/2020 10/21/2020 fluticasone propionate (FLONASE) 50 mcg/actuation [place], Suspension 1 spray by Each Nare route [...] 05/01/2024 11:20 AM EDT Appointment Mammography/[place] [address] Rodney Padilla MD 05/01/2024 1:45 PM EDT Office [place] [address] Juanpablo Hernandez MD [facility] [place] [address] 05/23/2024 2:45 PM EST Clinical Support Family Medicine at [facility] [address] [place] [address] Julia Low [facility] 01/30/2025 1:30 PM EDT Laboratory Appointment Lab at [facility] Hematology Oncology [address] [place] [address] 01/30/2025 3:[address] [place] [address] Shane Cordero MD [facility] [place] [address] 01/30/2025 4:15 PM EDT Office Visit [place] [address] Shane Cordero MD [facility] [place] [address] documented as of this encounter Procedures Procedure [...] -Left Neck PATIENT INFO: ID #: ? [id number] ?: ??[birth year] (59 yrs)(F) Name: ? ALIZE MANJARREZ ? Visit Date: 09/15/2020 09:42 am PERFORMED BY: Performed By: ? Kaela Bruno RDMS Attending: ?Nakia Goetz MD Referred By: ?SHANE CORDERO Location: ? [place] SERVICE(S) PROVIDED: USTN - Soft Tissue Neck or Head - [id number] ? [id number] INDICATIONS: History of left eye conjunctival melanoma [...] Report -Left Neck PATIENT INFO: ID #: [id number] : [birth year] (59 yrs)(F) Name: ALIZE MANJARREZ Visit Date: 09/15/2020 09:42 am PERFORMED BY: Performed By: Kaela Bruno RDMS Attending: Nakia Goetz MD Referred By: SHANE CORDERO Location: [place] SERVICE(S) PROVIDED: USTN - Soft Tissue Neck or Head - [id number] INDICATIONS: History of left eye conjunctival melanoma [...] left documented in this encounter Care Teams Information Technology Project Manager Relationship Specialty Start Date End Date Luis E Narayan MD [facility] [address] [place] [address] PCP - General Family Medicine 03/26/19 01/19/22 documented as of this encounter
--- OUTSIDE RECORDS SUMMARY | 2024-04-15 15:56 | XMS_ITS | Encounter Summary ---
Author Organization [facility] [place] [address] Care Team Providers Care Shipping Coordinator Name Role Phone Luis E Narayan MD Primary Care Provider [phone] Reason for Referral * Diagnostic Test (Routine) - Closed Specialty Diagnoses / Procedures Referred By Contac t Referred To Contact Radiology Diagnoses Malignant melanoma of conjunctiva, left Procedures CT Neck Soft Tissue w Contrast (Generic) Arturo Cordero MD [facility] [address] [place] [address] [facility] [place] [address] Referral ID Status Reason Start Date Expiration Date V isits Requested Visits Authorized [id number] Closed Specialty Service Requested 09/15/2020 03/18/2022 1 1 * Diagnostic Test (Routine) - Closed Specialty Diagnoses / Procedures Referred By Contac t Referred To Contact Radiology Diagnoses Malignant melanoma of conjunctiva, left Procedures CT Chest Abdomen Pelvis w Contrast (Generic) Arturo Cordero MD [facility] DR [place] [address] [facility] [place] [address] Referral ID Status Reason Start Date Expiration Date V isits Requested Visits Authorized [id number] Closed Specialty Service Requested 09/15/2020 03/18/2022 1 1 Reason for Visit * Reason Comments Follow-up Encounter Details Date Type Department Care Team (Late st Contact Info) Description 09/15/2020 11:30 AM EST Office Visit Hematology [place] [address] Arturo Crodero MD [facility] DR [place] [address] Leandra Lopes APRN [facility] [place] [address] Malignant melanoma of conjunctiva, left Social History [...] the original note were not included. [facility] FOLLOW UP NOTE REFERING PHYSICIAN: [...] management - fall 2018: saw a new data deliverables manager and was referred to Dr. 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 Medina - 03/31/2020: saw her data deliverables manager Dr. Hernandez and was noted to [...] uses inhalerswith good effect ??? Atherosclerosis of [place] coronary artery of [place] heart with angina pectoris 10/09/2007 History of [...] Hernandez MD at [facility] ??? PRO EXCIS CORNEA LESN Left 05/14/2020 EXCISION OF LESION, CORNEA, EXCEPT PTERYGIUM (WRVU 7.5) performed by Juanpablo Hernandez MD at [facility] ??? PRO LAP, PARTIAL NEPHRECTOMY Left 06/28/2019 LAPAROSCOPY, PARTIAL NEPHRECTOMY, ROBOTIC ASSIST (WRVU 27.41) performed by Avila Medina MD at [facility] MAIN OR ??? 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 [address] [place] [address] Julia Low, [facility] 01/30/2025 1:30 PM EDT Laboratory Appointment Lab at [facility] Hematology Oncology [address] [place] [address] 01/30/2025 3:[address] [place] [address] Arturo Cordero MD [facility] DR [place] [address] 01/30/2025 4:15 PM EDT Office Visit Hematology [place] [address] Arturo Cordero MD [facility] DR [place] [address] documented as of this encounter Results * [...] who have questions please contact the health managed care manager that requested your imaging first. ? Electronically signed by: Clarisa Rajput MD, [facility] ([phone]), at 12/18/2020 9:41 AM Narrative 12/18/2020 9:41 [...] patients who have questions please contactthe health managed care manager that requested your imaging first. Electronically signed by: Clarisa Rajput MD, [facility]([phone]), at 12/18/2020 9:41 AM Arturo Cordero MD [...] who have questions please contact the health managed care manager that requested your imaging first. ? Electronically signed by: Juanpablo Chris MD, [facility] ([phone]), at 12/17/2020 4:53 PM Narrative 12/17/2020 4:53 [...] patients who have questions please contactthe health managed care manager that requested your imaging first. Arturo Cordero MD IMG CT ORDERABLES * Lactate Dehydrogenase (12/17/2020 12:45 PM EDT) Lactate Dehydrogenase 205 110 - 220 unit/L [facility] Blood 12/17/2020 12:4 5 PM EDT 12/17/2020 12:51 PM EDT Narrative Resulting Agency Comment Spec In Lab Arturo Cordero MD CHEMISTRY ORDERABLES [facility] [place] [address] * (ABNORMAL) Comprehensive metabolic panel (non-fasting) (12/17/2020 [...] MD CHEMISTRY ORDERABLES [facility] [place] [address] documented in this encounter Visit Diagnoses Diagnosis Malignant melanoma of conjunctiva, left Malignant melanoma of conjunctiva, left documented in this encounter Care Teams Shipping Coordinator Relationship Specialty Start Date End Date Luis E Narayan MD [facility] [address] [place] [address] PCP - General Family Medicine 03/26/19 01/19/22 documented as of this encounter
--- OUTSIDE RECORDS SUMMARY | 2024-04-15 15:56 | XMS_ITS | Encounter Summary ---
Author Organization [facility] [place] [address] Care Team Providers Care Rotary Dump Operator Name Role Phone Luis E Narayan MD Primary Care Provider Encounter Details Date Type Department Care Team (Late st Contact Info) Description 08/17/2020 External [place] [phone] Social History Tobacco Use Types Packs/Day Years [...] 05/01/2024 11:20 AM EDT Appointment Mammography/[place] [address] Rodney Padilla MD 05/01/2024 1:45 PM EDT Office [place] [address] Juanpablo Hernandez MD [facility] [place] [address] 05/23/2024 2:45 PM EST Clinical Support Family Medicine at [facility] [address] [place] [address] Julia Low, [facility] 01/30/2025 1:30 PM EDT Laboratory Appointment Lab at [facility] Hematology Oncology [address] [place] [address] 01/30/2025 3:[address] [place] [address] Arturo Cordero MD [facility] DR [place] [address] 01/30/2025 4:15 PM EDT Office Visit Hematology [place] [address] Arturo Cordero MD [facility] DR [place] [address] documented as of this encounter Procedures Procedure Name Priority Date/Time Associated Diagnosis Comments ECG SCAN Routine 08/17/2020 documented in this encounter Results * Scan Doc: ECG (08/17/2020) Historical Provider MD [facility] MGR SCAN EX T ORDR/RSLT documented in this encounter Visit Diagnoses Not on filedocumented in this encounter Care Teams Rotary Dump Operator Relationship Specialty Start Date End Date Luis E Narayan MD [facility] DR LILI [place] [address] PCP - General Family Medicine 03/26/19 01/19/22 documented as of this encounter
--- OUTSIDE RECORDS SUMMARY | 2024-04-15 15:56 | XMS_ITS | Encounter Summary ---
Author Organization [facility] [place] [address] Care Team Providers Care Grocery Carrier Name Role Phone Luis E Narayan MD Primary Care Provider Encounter Details Date Type Department Care Team (Late Contact Info) Description 08/07/2020 Telephone [place] [address] Malika Ye Social History Tobacco Use Types [...] 11:20 AM EDT Appointment Mammography/[place] [address] Rodney Padilla MD 05/01/2024 1:45 PM EDT Office Visit [place] [address] Juanpablo Hernandez MD [facility] [place] [address] 05/23/2024 2:45 PM EST Clinical Support Family Medicine at [facility] [address] [place] [address] Julia Low, [facility] 01/30/2025 1:30 PM EDT Laboratory Appointment Lab at [facility] Hematology Oncology [address] [place] [address] 01/30/2025 3:[address] [place] [address] Arturo Cordero MD [facility] [place] [address] 01/30/2025 4:15 PM EDT Office Visit Hematology [place] [address] Arturo Cordero MD [facility] [place] [address] documented as of this encounter Visit Diagnoses Not on filedocumented in this encounter Care Teams Grocery Carrier Relationship Specialty Start Date End Date Luis E Narayan MD [facility] DR LILI [place] [address] PCP - General Family Medicine 03/26/19 01/19/22 documented as of this encounter
--- OUTSIDE RECORDS SUMMARY | 2024-04-15 15:56 | XMS_ITS | Encounter Summary ---
Author Organization [facility] [place] [address] Care Team Providers Care Order Filler Name Role Phone Luis E Narayan MD Primary Care Provider Encounter Details Date Type Department Care Team (Late st Contact Info) Description 09/11/2020 Telephone Family Medicine at [facility] [address] [place] [address] Shannon Ward, RN Social History Tobacco Use [...] 05/01/2024 11:20 AM EDT Appointment Mammography/[place] [address] Rodney Padilla MD 05/01/2024 1:45 PM EDT [place] [address] Juanpablo Hernandez MD [facility] [place] [address] 05/23/2024 2:45 PM EST Clinical Support Family Medicine at [facility] [address] [place] [address] Julia Low [facility] 01/30/2025 1:30 PM EDT Laboratory Appointment Lab at [facility] Hematology Oncology [address] [place] [address] 01/30/2025 3:[address] [place] [place] [address] Arturo Cordero MD [facility] [place] [address] 01/30/2025 4:15 PM EDT Office Visit [place]ology [place] [address] Arturo Cordero MD [facility] [place] [address] documented as of this encounter Visit Diagnoses Not on filedocumented in this encounter Care Teams Order Filler Relationship Specialty Start Date End Date Luis E Narayan MD [facility] [address] [place] [address] PCP - General Family Medicine 03/26/19 01/19/22 documented as of this encounter
--- OUTSIDE RECORDS SUMMARY | 2024-04-15 15:56 | XMS_ITS | Encounter Summary ---
Author Organization [facility] Address One [facility] [address] Care Team Providers Care Hand Booked Folder And Stitcher Name Role Phone Luis E Narayan MD Primary Care Provider [phone] Reason for Visit * Reason Onset Date Comments Triage 09/14/2020 Encounter Details Date Type Department Care Team (Late st Contact Info) Description 09/14/2020 Telephone Family Medicine at [facility] [address] [place] [address] Wendy [place] Triage Social History Tobacco Use [...] month, got a negative COVID Test at [facility] when the symptoms when started. Patient denies all urgent signs and symptoms at this time. Patient requested appointment on 09/15/20 to coordinate with other appointments. Appointment scheduled with Leora COLVIN on 09/15/20 @ 5984. Patient reported understanding and agrees to plan [...] up for Chest Pain. Left message on [employer] voicemail to call back. * Telephone Encounter - Wendy [place] - 09/14/2020 8:16 AM EST Please call patient to discuss Emergency Room Follow Up Reason for the Emergency Room visit: Chest Pain Name of the facility where patient was seen: [facility] Symptomatic now: y Other information:Pt [...] 05/01/2024 11:20 AM EDT Appointment Mammography[place] [address] Rodney Padilla MD 05/01/2024 1:45 PM EDT Office [place] [address] Juanpablo Hernandez MD [facility] [place] [address] 05/23/2024 2:45 PM EST Clinical Support Family Medicine at [facility] [address] [place] [address] Julia Low [facility] 01/30/2025 1:30 PM EDT Laboratory Appointment Lab at [facility] Hematology Oncology [address] [place] [address] 01/30/2025 3:[address] [place] [address] Arturo Cordero MD [facility] [place] [address] 01/30/2025 4:15 PM EDT Office Visit [place]ematology [place] [address] Arturo Cordero MD [facility] [place] [address] documented as of this encounter Visit Diagnoses Not on filedocumented in this encounter Care Teams Hand Booked Folder And Stitcher Relationship Specialty Start Date End Date Luis E Narayan MD [facility] [address] [place] [address] PCP - General Family Medicine 03/26/19 01/19/22 documented as of this encounter
--- OUTSIDE RECORDS SUMMARY | 2024-04-15 15:56 | XMS_ITS | Encounter Summary ---
Author Organization [facility] [place] [address] Care Team Providers Care Drag Sawyer Name Role Phone Luis E Narayan MD Primary Care Provider [phone] Encounter Details Date Type Department Care Team (Late st Contact Info) Description 09/21/2020 Telephone Family Medicine at [facility] [address] [place] [address] Alejandra Posadas, RN Social History Tobacco Use [...] Posadas RN - 09/23/2020 12:24 PM EDT Golf Shoe Spike Assembler returned call. He was wondering when patient was referred to [facility], advised referrals were made 05/10/2019 and 08/05/2019. Gave him their department number to speak about the wait time. * Telephone Encounter - Alejandra Posadas RN - 09/23/2020 11:56 AM EDT Faxed letter. Left massage at policy writer sales's office that I did this and invited him to call if anything else is needed of primary care. Placed in Medical records * Telephone Encounter - Luis E Narayan MD - 09/23/2020 11:52 AM EDT Letter done. * Telephone Encounter - Alejandra Posadas RN - 09/21/2020 8:53 AM EDT Called placed to Law office at [phone] They would like fax of prior communications sent back to them with those dates as well as a correspondence dated today with PCP's message: Dr. Narayan is not trained or equipped to make disability determinations. He believes that there are several specialists in the community who do this work, although he can't make any specific referrals. Law office fax is [phone] Forms are in media dated 08/20/20 Message 08/21 states forms were faxed back, although I don't see forms in scan docs with PCP commenton them documented in this encounter Plan of Treatment Upcoming Encounters Date Type Department Care Team (Late st Contact Info) Description 05/01/2024 11:20 AM EDT Appointment Mammography/DXA at [place] [phone] Rodney Padilla MD 05/01/2024 1:45 PM EDT Office Visit Ophthalmology at [place] [phone] Juanpablo Hernandez MD [facility] [place] [address] 05/23/2024 2:45 PM EST Clinical Support Family Medicine at [facility] [address] [place] [address] Julia Low, [facility] 01/30/2025 1:30 PM EDT Laboratory Appointment Lab at [facility] Hematology Oncology [address] [place] [address] 01/30/2025 3:[address] [place] [address] Arturo Cordero MD [facility] [place] [address] 01/30/2025 4:15 PM EDT Office Visit Hematology [place] [address] Arturo Cordero MD [facility] [place] [address] documented as of this encounter Visit Diagnoses Not on filedocumented in this encounter Care Teams Drag Sawyer Relationship Specialty Start Date End Date Luis E Narayan MD [facility] [address] [place] [address] PCP - General Family Medicine 03/26/19 01/19/22 documented as of this encounter
--- OUTSIDE RECORDS SUMMARY | 2024-04-15 15:56 | XMS_ITS | Encounter Summary ---
Author Organization [facility] [place] [address] Care Team Providers Care Hyperbaric Technician Name Role Phone Luis E Narayan MD Primary Care Provider [phone] Encounter Details Date Type Department Care Team (Late st Contact Info) Description 08/21/2020 Telephone Family Medicine at [facility] [address] [place] [address] Prakashiker, Lacie L Social History Tobacco Use [...] information. I did send back to the psychologist engineering with that comment. My recommednation is for herto schedule with a physician who does disability evaluations. Most asset protection associate have a list of physicians who do that work. I am not sure who around here does. We can discuss at next visit if she wants. thanks * Telephone Encounter - Silvio Alonzo - 08/21/2020 3:15 PM EST Records requested faxed to [facility] * Telephone Encounter - Thomas Tyson RN - 08/21/2020 2:36 PM EST Patient Alize called in today to request results from EKG, ECHO, and labs from [facility]. Patient identity confirmed by full name and . Patient reports she was seen at the ED at [facility] for chest pressure with sob. Patient states [...] letters sent to our office from her psychologist engineering. Patient had no further questions or concerns anddid not want a follow up at this time. documented in this encounter Plan of Treatment Upcoming Encounters Date Type Department Care Team (Late st Contact Info) Description 05/01/2024 11:20 AM EDT Appointment Mammography/[place] [address] Rodney Padilla MD 05/01/2024 1:45 PM EDT Office [place] [address] Juanpablo Hernandez MD [facility] [place] [address] 05/23/2024 2:45 PM EST Clinical Support Family Medicine at [facility] [address] [place] [address] Julia Low, [facility] 01/30/2025 1:30 PM EDT Laboratory Appointment Lab at [facility] [place]ology Oncology [address] [place] [address] 01/30/2025 3:[address] [place] [address] Arturo Cordero MD [facility] [place] [address] 01/30/2025 4:15 PM EDT Office Visit H[place]ology [place] [address] Arturo Cordero MD [facility] [place] [address] documented as of this encounter Visit Diagnoses Not on filedocumented in this encounter Care Teams Hyperbaric Technician Relationship Specialty Start Date End Date Luis E Narayan MD [facility] [address] [place] [address] PCP - General Family Medicine 03/26/19 01/19/22 documented as of this encounter
--- OUTSIDE RECORDS SUMMARY | 2024-04-15 15:56 | XMS_ITS | Encounter Summary ---
Author Organization [facility] Address [facility] [place] [address] Care Team Providers Care Family And Marriage Counsellor Name Role Phone Luis E Narayan MD Primary Care Provider Reason for Visit * Reason Comments Cancer Encounter Details Date Type Department Care Team (Late st Contact Info) Description 09/30/2020 12:45 PM EDT Office Visit [place] [address] Juanpablo Hernandez MD [facility] [place] [place] [address] Malignant melanoma of conjunctiva, left Social History [...] AM EDT Appointment Mammography/DXA at [place] [phone] Rodney Padilla MD 05/01/2024 1:45 PM EDT Office [place] [address] Juanpablo Hernandez MD [facility] [place] [place] [address] 05/23/2024 2:45 PM EST Clinical Support Family Medicine at [place] [address] [place] [address] Julia Low, [facility] 01/30/2025 1:30 PM EDT Laboratory Appointment Lab at [facility] Hematology Oncology [address] [place] [address] 01/30/2025 3:[address] Scan at [place] [phone] Arturo Cordero MD [facility] [place] [address] 01/30/2025 4:15 PM EDT Office Visit Hematology [place] [address] Arturo Cordero MD [facility] [place] [address] documented as of this encounter Visit Diagnoses Diagnosis Malignant melanoma of conjunctiva, left documented in this encounter Care Teams Family And Marriage Counsellor Relationship Specialty Start Date End Date Sylvain, Luis E E, MD [facility] [address] [place] [address] PCP - General Family Medicine 03/26/19 01/19/22 documented as of this encounter
--- OUTSIDE RECORDS SUMMARY | 2024-04-15 15:56 | XMS_ITS | Encounter Summary ---
Author Organization [facility] [place] [address] Care Team Providers Care Delivery Driver/Supervisor Name Role Phone Luis E Narayan MD Primary Care Provider Reason for Visit * Reason Comments Medication Refill Encounter Details Date Type Department Care Team (Late Contact Info) Description 08/02/2020 Refill Family Medicine at [facility] [address] [place] [address] Luis E Narayan MD [facility] DR LIL[address] [place] [address] Social History Tobacco Use Types Packs/Day Years [...] EDT Appointment Mammography/[place] [address] Rodney Padilla MD 05/01/2024 1:45 PM EDT Office Visit [place] [address] Juanpablo Hernandez MD [facility] [place] [address] 05/23/2024 2:45 PM EST Clinical Support Family Medicine at [facility] [address] [place] [address] Julia Low [facility] 01/30/2025 1:30 PM EDT Laboratory Appointment Lab at [facility] Hematology Oncology [address] [place] [address] 01/30/2025 3:[address] [place] [address] Arturo Cordero MD [facility] [place] [address] 01/30/2025 4:15 PM EDT Office Visit Hematology [place] [address] Arturo Cordero MD [facility] [place] [address] documented as of this encounter Visit Diagnoses Not on filedocumented in this encounter Care Teams Delivery Driver/Supervisor Relationship Specialty Start Date End Date Luis E Narayan MD [facility] DR L[address] [place] [address] PCP - General Family Medicine 03/26/19 01/19/22 documented as of this encounter
--- OUTSIDE RECORDS SUMMARY | 2024-04-15 15:56 | XMS_ITS | Encounter Summary ---
[place] [address] Care Team Providers Care Park Guard Name Role Phone Luis E Narayan MD Primary Care Provider Encounter Details Date Type Department Care Team (Late st Contact Info) Description 10/07/2020 Telephone [place] [address] Malika Ye Social History Tobacco Use Types [...] 05/01/2024 11:20 AM EDT Appointment Mammography/DXA at [place] [phone] Rodney Padilla MD 05/01/2024 1:45 PM EDT Office Visit Ophthalmology at [place] [phone] Juanpablo Hernandez MD [facility] [place] [address] 05/23/2024 2:45 PM EST Clinical Support Family Medicine at [facility] [address] [place] [address] Julia Low, [facility] 01/30/2025 1:30 PM EDT Laboratory Appointment Lab at [facility] Hematology Oncology [address] [place] [address] 01/30/2025 3:[address] [place] [address] Arturo Cordero MD [facility] DR HEMATOLOGY [place] [address] 01/30/2025 4:15 PM EDT Office Visit Hematology [place] [address] Arturo Cordero MD [facility] DR HEMATOLOGY [place] [address] documented as of this encounter Visit Diagnoses Not on filedocumented in this encounter Care Teams Park Guard Relationship Specialty Start Date End Date Luis E Narayan MD [facility] DR LIL[address] WALKER[place] [address] PCP - General Family Medicine 03/26/19 01/19/22 documented as of this encounter
--- OUTSIDE RECORDS SUMMARY | 2024-04-15 15:56 | XMS_ITS | Encounter Summary ---
Author Organization [facility] Address [facility] [place] [address] Care Team Providers Care Package Dyer Name Role Phone Luis E Narayan MD Primary Care Provider Encounter Details Date Type Department Care Team (Latest Contact Info) Description 08/24/2020 6:00 PM EST TH Visit (TeleHealth) Family Medicine at [facility] [address] [place] [address] Earl Valdez MD [facility] DR LILI WALKER-[place] [address] Atypical chest pain Social History Tobacco Use [...] was seen in an emergency room at [facility] on 08/17.This was for chest pressure. She [...] 05/01/2024 11:20 AM EDT Appointment Mammography/[place] [address] Rodney Padilla MD 05/01/2024 1:45 PM EDT Office [place] [address] Juanpablo Hernandez MD [facility] [place] [address] 05/23/2024 2:45 PM EST Clinical Support Family Medicine at [facility] [address] [place] [address] Julia Low [facility] 01/30/2025 1:30 PM EDT Laboratory Appointment Lab at [facility] [place] On[place] [address] [place] [address] 01/30/2025 3:[address] [place] [address] Arturo Cordero MD [facility] DR HEMATOLOGY [place] [address] 01/30/2025 4:15 PM EDT Office Visit Hematology [place] [address] Arturo Cordero MD [facility] HEMATOLOGY [place] [address] documented as of this encounter Visit Diagnoses Diagnosis Atypical chest pain Other chest pain documented in this encounter Care Teams Package Dyer Relationship Specialty Start Date End Date Luis E Narayan MD [facility] [address]-[place] [address] PCP - General Family Medicine 03/26/19 01/19/22 documented as of this encounter
--- OUTSIDE RECORDS SUMMARY | 2024-04-15 15:56 | XMS_ITS | Encounter Summary ---
Author Organization [facility] Address [facility] [place] [address] Care Team Providers Care Manager Water Wastewater Name Role Phone Luis E Narayan MD Primary Care Provider +1- [phone] Reason for Visit * Reason Comments Tearing Encounter Details Date Type Department Care Team (Late st Contact Info) Description 09/15/2020 3:00 PM EST Office [place] [address] Juanpablo Hernandez MD [facility] [place] [address] Malignant melanoma of conjunctiva, left; Keratitis Social [...] 11:20 AM EDT Appointment Mammography/[place] [address] Rodney Padilla MD 05/01/2024 1:45 PM EDT Office Visit Ophthalmology at [place] [phone] Juanpablo Hernandez MD [facility] [place] [address] 05/23/2024 2:45 PM EST Clinical Support Family Medicine at [facility] [address] [place] [address] Julia Low, [facility] 01/30/2025 1:30 PM EDT Laboratory Appointment Lab at [facility] Hematology Oncology [address] [place] [address] [id number] 01/30/2025 3:[address] [place] [address] Arturo Cordero MD [facility] DR HEMATOLOGY AND ONCOLOGY [place], [place] [phone] 01/30/2025 4:15 PM EDT Office Visit Hematology [place] [address] Arturo Cordero MD [facility] DR HEMATOLOGY AND ONCOLOGY [place], [place] [phone] documented as of this encounter Visit Diagnoses Diagnosis Malignant melanoma of conjunctiva, left Keratitis Unspecified keratitis documented in this encounter Care Teams Manager Water Wastewater Relationship Specialty Start Date End Date Luis E Narayan MD [facility] [address] [place] [address] PCP - General Family Medicine 03/26/19 01/19/22 documented as of this encounter
--- OUTSIDE RECORDS SUMMARY | 2024-04-15 15:56 | XMS_ITS | Encounter Summary ---
[place] [address] Care Team Providers Care Weatherstrip Machine Operator Name Role Phone Luis E Narayan MD Primary Care Provider +1- [phone] Reason for Visit * Reason Onset Date Comments Other 08/24/2020 Encounter Details Date Type Department Care Team (Late Contact Info) Description 08/24/2020 Telephone Family Medicine at [facility] [address] [place] [address] Gia Bruce Other Social History Tobacco Use [...] 05/01/2024 11:20 AM EDT Appointment Mammography/[place] [address] Rodney Padilla MD 05/01/2024 1:45 PM EDT [place] [address] Juanpablo Hernandez MD [facility] [place] [address] 05/23/2024 2:45 PM EST Clinical Support Family Medicine at [facility] [address] [place] [address] Julia Low, [facility] 01/30/2025 1:30 PM EDT Laboratory Appointment Lab at [facility] [place] [address] [place] [address] 01/30/2025 3:[address] [place] [address] Arturo Cordero MD [facility] [place] [address] 01/30/2025 4:15 PM EDT Office Visit [place] [address] Arturo Cordero MD [facility] [place] [address] documented as of this encounter Visit Diagnoses Not on filedocumented in this encounter Care Teams Weatherstrip Machine Operator Relationship Specialty Start Date End Date Luis E Narayan MD [facility] DR [facility] [address] PCP - General Family Medicine 03/26/19 01/19/22 documented as of this encounter
--- OUTSIDE RECORDS SUMMARY | 2024-04-15 15:56 | XMS_ITS | Encounter Summary ---
Author Organization [facility] Address [facility] [place] [address] Care Team Providers Care Filter Press Supervisor Name Role Phone Luis E Narayan MD Primary Care Provider +1- [phone] Reason for Visit * Reason Comments Follow-up Encounter Details Date Type Department Care Team (Late st Contact Info) Description 09/15/2020 1:30 PM EST Office Visit Internal Medicine at [facility] [address] [place] [address] Alejandra Corey MD [facility] [place] [address] Acute URI; Acute non-recurrent maxillary sinusitis; Constipation, [...] Where can you learn more? Visit our [employer]ital information library at [email or web address] You can also view health information on [employer], your personal patient account. Log in or sign uptoday. Enter A855 in the search box to learn more about Jose L Maneuver for Vertigo: Exercises. Current as of: October 23, 2019?Content Version: 12.7 ?? [id number] Healthwise, Incorporated. Care instructions adapted under license by [facility]. If you have questions about a medical condition or this instruction, always ask your healthcare professional. [employer] disclaims any warranty or liability for your [...] more? Visit our health information library at [email or web address] You can also view health information on [employer], your personal patient account. Log in or sign uptoday. Enter P372 in the search box to learn more about Benign Paroxysmal Positional Vertigo (BPPV): CareInstructions. Current as of: October 23, 2019?Content Version: 12.7 ?? [employer] Care instructions adapted under license by [facility]. If you have questions about a medical condition or this instruction, always ask your healthcare professional. [employer] disclaims any warranty or liability for your [...] with sore throat. This was evaluated at [facility]. She has some associated vertigo and nausea. [...] 05/01/2024 11:20 AM EDT Appointment Mammography/[place] [address] Rodney Padilla MD 05/01/2024 1:45 PM EDT [place] [address] Juanpablo Hernandez MD [facility] [place] [address] 05/23/2024 2:45 PM EST Clinical Support Family Medicine at [facility] [address] [place] [address] Julia Low [facility] 01/30/2025 1:30 PM EDT Laboratory Appointment Lab [place] [facility] [place] [address] [place] [address] 01/30/2025 3:[address] [place] [place] [address] Arturo Cordero MD [facility] [place] [address] 01/30/2025 4:15 PM EDT Office Visit [place] [address] Arturo Cordero MD [facility] [place] [address] documented as of this encounter Visit Diagnoses Diagnosis Acute URI Acute upper respiratory infections of unspecified site Acute non-recurrent maxillary sinusitis Constipation, unspecified constipation type documented in this encounter Care Teams Filter Press Supervisor Relationship Specialty Start Date End Date Luis E Narayan MD [facility] [address] [place] [address] PCP - General Family Medicine 03/26/19 01/19/22 documented as of this encounter
--- OUTSIDE RECORDS SUMMARY | 2024-04-15 15:57 | XMS_ITS | Encounter Summary ---
Author Organization [facility] [place] [address] Care Team Providers Care Batching Operator Name Role Phone Luis E Narayan MD Primary Care Provider +1- [phone] Reason for Referral * Consultation (Routine) - Closed Specialty Diagnoses / Procedures Referred By Gonzalez kumari Referred To Contact Hematology and Oncology Diagnoses Malignant melanoma of conjunctiva, left Molly Monique MD [facility] DR HEMATOLOGY/[place] [address] [facility] [address] [place] [address] Referral ID Status Reason Start Date Expiration Date V isits Requested Visits Authorized [id number] Closed Consult, Test & Treat 06/16/2020 06/16/2021 1 1 Encounter Details Date Type Department Care Team (Late st Contact Info) Description 06/16/2020 10:00 AM EST Office Visit Hematology [place] [address] Arturo Cordero MD [facility] DR [place] [address] Leandra Lopes, ORDERLIES TEACHER [facility] [address] [place] [address] Malignant melanoma of conjunctiva, left (Primary Dx); [...] from the original note were not included. [facility] FOLLOW UP NOTE REFERING PHYSICIAN: [...] management - fall 2018: saw a new administrative tech and was referred to Dr. 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 Medina - 03/31/2020: saw her administrative tech Dr. Hernandez and was noted to have [...] uses inhalerswith good effect ??? 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 PRO EXCIS CORNEA LESN Left 05/14/2020 EXCISION OF LESION, CORNEA, EXCEPT PTERYGIUM (WRVU 7.5) performed by Juanpablo Hernandez MD at [facility] ??? PRO LAP, PARTIAL NEPHRECTOMY Left 06/28/2019 LAPAROSCOPY, PARTIAL NEPHRECTOMY, ROBOTIC ASSIST (WRVU 27.41) performed by Avila Medina MD at [facility] MA[facility] OR ??? 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 Hernandez in Ophthalmology. [...] 05/01/2024 11:20 AM EDT Appointment Mammography/[place] [address] Rodney Padilla MD 05/01/2024 1:45 PM EDT Office [place] [address] Juanpablo Hernandez MD [facility] [place] [address] 05/23/2024 2:45 PM EST Clinical Support Family Medicine at [facility] [address] [place] [address] Julia Low, [facility] 01/30/2025 1:30 PM EDT Laboratory Appointment Lab at [facility] [place] [address] [place] [address] 01/30/2025 3:[address] [place] [address] Arturo Cordero MD [facility] DR [place] [address] 01/30/2025 4:15 PM EDT Office Visit Hematology [place] [address] Arturo Cordero MD [facility] DR [place] [address] Scheduled Orders Name Type Priority Associated Diagnoses [...] below. Electronically signed by: Nakia Goetz MD, [facility] ([phone]), at 09/15/2020 9:54 AM ? Nakia Goetz, Staff Physician Electronically Signed Final Report ?? 09/15/2020 10:01 am Narrative 09/15/2020 10:01 AM EST Ultrasound Soft Tissue ?(Signed Final 09/15/2020 10:01 am) Neck or Head Report -Left Neck PATIENT INFO: ID #: ? [id number] ?: ??[birth year] (59 yrs)(F) Name: ? PATIENCE MANJARREZ ? Visit Date: 09/15/2020 09:42 am PERFORMED BY: Performed By: ? Kaela Bruno RDMS Attending: ?Sofy COLVIN, Nakia Andrade Referred By: ?[facility] Location: ? [place] SERVICE(S) PROVIDED: USTN - Soft Tissue Neck or Head - [id number] ? [id number] INDICATIONS: History of left eye conjunctival melanoma [...] Report -Left Neck PATIENT INFO: ID #: [id number] : 58 (59 yrs)(F) Name: PATIENCE MANJARREZ Visit Date: 09/15/2020 09:42 am PERFORMED BY: Performed By: Kaela Bruno RDMS Attending: Nakia Goetz MD Referred By: ARTURO CORDERO Location: [place] SERVICE(S) PROVIDED: USTN - Soft Tissue Neck or Head - [id number] INDICATIONS: History of left eye conjunctival melanoma [...] below. Electronically signed by: Nakia Goetz MD, [facility] ([phone]), at 09/15/2020 9:54 AM Nakia Goetz, Staff Physician Electronically Signed Final Report 09/15/2020 10:01 am Arturo Cordero MD IMG US GEN ORDERABLE S documented in this encounter Visit Diagnoses Diagnosis Malignant melanoma of conjunctiva, left- Primary Anxiety Anxiety state, unspecified History of renal cell cancer Malignant melanoma of conjunctiva, left documented in this encounter Care Teams Batching Operator Relationship Specialty Start Date End Date Luis E Narayan MD [facility] [place] [address] PCP - General Family Medicine 03/26/19 01/19/22 documented as of this encounter
--- OUTSIDE RECORDS SUMMARY | 2024-04-15 15:57 | XMS_ITS | Encounter Summary ---
Author Organization [facility] Address [facility] [place] [address] Care Team Providers Care Plate Filler Name Role Phone Luis E Narayan MD Primary Care Provider Reason for Visit * Reason Comments Follow-up Encounter Details Date Type Department Care Team (Late st Contact Info) Description 07/31/2020 3:15 PM EST Office [place] [address] Juanpablo Hernandez MD [facility] [place] [address] Malignant melanoma of conjunctiva, left Social History [...] 05/01/2024 11:20 AM EDT Appointment Mammography/DXA at [place] [phone] Rodney Padilla MD 05/01/2024 1:45 PM EDT Office Visit Ophthalmology at [place] [phone] Juanpablo Hernandez MD [facility] [place] [address] 05/23/2024 2:45 PM EST Clinical Support Family Medicine at [facility] [address] [place] [address] Julia Low, [facility] 01/30/2025 1:30 PM EDT Laboratory Appointment Lab at [facility] Hematology Oncology [address] [place], [place] [address] 01/30/2025 3:[address] Scan at [place] [phone] Arturo Cordero MD [facility] [place] [address] 01/30/2025 4:15 PM EDT Office Visit Hematology and Oncology at [place] [phone] Arturo Cordero MD [facility] [place] [address] documented as of this encounter Visit Diagnoses Diagnosis Malignant melanoma of conjunctiva, left documented in this encounter Care Teams Plate Filler Relationship Specialty Start Date End Date Luis E Narayan MD [facility] DR [address] [facility] [address] PCP - General Family Medicine 9/17/19 7/13/22 documented as of this encounter
--- OUTSIDE RECORDS SUMMARY | 2024-04-15 15:57 | XMS_ITS | Encounter Summary ---
Author Organization [facility] [place] [address] Care Team Providers Care Insole And Outsole Splitter Name Role Phone Luis E Narayan MD Primary Care Provider [phone]- [phone] Reason for Referral * Consultation (Urgent) - Closed Specialty Diagnoses / Procedures Referred By Goznalez kumari Referred To Contact Hematology and Oncology Diagnoses Conjunctival tumor Juanpablo Hernandez MD [facility] [place] [address] [facility] [address] [place] [address] Referral ID Status Reason Start Date Expiration Date V isits Requested Visits Authorized [id number] Closed Consult, Test & Treat 05/19/2020 05/19/2021 1 1 Reason for Visit * Reason Comments Post Op Encounter Details Date Type Department Care Team (Late st Contact Info) Description 05/19/2020 10:15 AM EST Office [place] [address] Juanpablo Hernandez MD [facility] [place] [address] Conjunctival tumor; Malignant melanoma of conjunctiva, left [...] to epithelium. Spoke with Dr. Gordon at [facility] in a general way about this case. [...] 05/01/2024 11:20 AM EDT Appointment Mammography/DXA at [place] [phone] Rodney Padilla MD 05/01/2024 1:45 PM EDT Office [place] [address] Juanpablo Hernandez MD [facility] [place] [address] 05/23/2024 2:45 PM EST Clinical Support Family Medicine at [place] [address] [place] [address] Julia Low [facility] 01/30/2025 1:30 PM EDT Laboratory Appointment Lab at [facility] [place] On[place] [address] [place] [address] 01/30/2025 3:[address] Scan at [place] [phone] Arturo Cordero MD [facility] DR [place] [address] 01/30/2025 4:15 PM EDT Office Visit Hematology [place] [address] Arturo Cordero MD [facility] DR [place] [address] Scheduled Referrals Name Type Priority Associated Diagnoses Order Schedule Referral to Hematology and Oncology Outpatient Referral Routine Conjunctival tumor Ordered: 05/19/2020 documented as of this encounter Visit Diagnoses Diagnosis Conjunctival tumor Neoplasms of unspecified nature, other specified sites Malignant melanoma of conjunctiva, left documented in this encounter Care Teams Insole And Outsole Splitter Relationship Specialty Start Date End Date Luis E Narayan MD [facility] DR [address] [place] [address] PCP - General Family Medicine 03/26/19 01/19/22 documented as of this encounter
--- OUTSIDE RECORDS SUMMARY | 2024-04-15 15:57 | XMS_ITS | Encounter Summary ---
Author Organization [facility] [place] [address] Care Team Providers Care Kickboxing Instructor Name Role Phone Luis E Narayan MD Primary Care Provider Encounter Details Date Type Department Care Team (Latest Contact Info) Description 06/12/2020 1:43 PM EST - 06/12/2020 2:04 PM EST Hospital Encounter [place]ematology [place] [address] Ocular melanoma, left Discharge Disposition: Home Social [...] 08/05/2019 06/14/2021 fluticasone propionate (FLONASE) 50 mcg/actuation [place], Suspension 1 spray by Each Nare route [...] 05/01/2024 11:20 AM EDT Appointment Mammography/[place] [address] Rodney Padilla MD 05/01/2024 1:45 PM EDT Office [place] [address] Juanpablo Hernandez MD [facility] [place] [address] 05/23/2024 2:45 PM EST Clinical Support Family Medicine at [address] [phone] Julia Low, [facility] 01/30/2025 1:30 PM EDT Laboratory Appointment Lab at [facility] [place] On[place] [address] [place] [address] 01/30/2025 3:[address] [place] [address] Arturo Cordero MD [facility] [place] [address] 01/30/2025 4:15 PM EDT Office Visit Hematology and Oncology at [place] [address] Arturo Cordero MD [facility] [address] [place] [address] documented as of this encounter Procedures Procedure [...] 2:00 PM EST) Neutrophil % 57.4 % [facility] Neutrophil Absolute 4.65 1.70 - 6.10 x10(3)/[facility] Lymph % 32.2 % [facility] Lymphocytes Abs 2.6 0.9 - 3.2 x10(3)/[facility] Monocyte % 7.6 % [facility] Monocyte Abs 0.6 0.3 - 0.9 x10(3)/[facility] Eos % 1.6 % [facility] Eosinophils Abs 0.1 0.0 - 0.4 x10(3)/[facility] Basophil % 0.7 % [facility] Baso Absolute 0.1 0.0 - 0.1 x10(3)/[facility] Immature Gran % 0.50 % [facility] Comment: Immature granulocytes(IG's)percentage and absolute count will include metamyelocytes, myelocytes, and promyelocytes. Blood smears from CBCs yielding IG's will be scanned manually for concordance. If this scan disagrees with the automated IG or if promyelocytes are noted, a manual differential will be performed. Immature Gran Absolute 0.04 0.00 - 0.04 x10(3)/[facility] Blood specimen (specimen) 06/12/2020 2:00 PM EST 06/12/2020 2:04 PM EST Narrative Resulting Agency Comment Spec In Lab Sri Frederick MD HEMATOLOGY ORDERABLE S Performing Organization Address City/State/[facility] Co de Phone Number [facility] [place] [address] * Hemogram (06/12/2020 2:00 PM EST) White Blood Cell 8.1 4.0 - 9.5 x10(3)/[facility] Red Blood Cell 4.67 4.00 - 5.21 x10(6)/[facility] Hemoglobin 13.4 11.7 - 15.5 gm/dL [facility] Hematocrit 40.7 35.7 - 45.8 % [facility] Mean Cell Volume 87.2 82.6 - 94.4 fL [facility] Mean Cell Hemoglobin 28.7 27.1 - 32.0 pg [facility] Mean Cell Hemoglobin Concentration 32.9 31.7 - 35.0 gm/dL [facility] Platelet 350 145 - 357 x10(3)/[facility] RDW Standard Deviation 42.6 37.0 - 46.0 fL [facility] RDW coefficient of variation 13.4 11.5 - 14.1 % [facility] Mean Platelet Volume 9.2 7.6 - 12.9 fL [facility] NRBC% auto 0.0 % [facility] NRBC Absolute 0.000 0.000 - 0.000 x10(3)/mcL [facility] Blood specimen (specimen) 06/12/2020 2:00 PM EST 06/12/2020 2:04 PM EST Narrative Resulting Agency Comment Spec In Lab Sri Frederick MD HEMATOLOGY ORDERABLE S [facility] [place] [address] * Comprehensive metabolic panel (non-fasting) (06/12/2020 2:00 PM EST) Glucose 166 65 - 199 mg/dL [facility] [...] MD CHEMISTRY ORDERABLES [facility] [place] [address] * Lactate Dehydrogenase (06/12/2020 2:00 PM EST) Lactate Dehydrogenase 198 110 - 220 unit/L [facility] Blood specimen (specimen) 06/12/2020 2:00 PM EST 06/12/2020 2:04 PM EST Narrative Resulting Agency Comment Spec In Lab Arturo Cordero MD CHEMISTRY ORDERABLES [facility] [place] [address] * TSH (06/12/2020 2:00 PM EST) Thyroid Stimulating Hormone 2.53 0.27 - 4.20 mcIU/mL [facility] Blood specimen (specimen) 06/12/2020 2:00 PM EST 06/12/2020 2:04 PM EST Narrative Resulting Agency Comment Spec In Lab Arturo Cordero MD CHEMISTRY ORDERABLES Performing Organization Address City/[facility]/ZIP Co de Phone Number [facility] [place] [address] * T4, free (06/12/2020 2:00 PM EST) Free T4 1.01 0.93 - 1.70 ng/dL [facility] Blood specimen (specimen) 06/12/2020 2:00 PM EST 06/12/2020 2:04 PM EST Narrative Resulting Agency Comment Spec In Lab Arturo Cordero MD CHEMISTRY ORDERABLES Performing Organization Address [facility] Co de Phone Number [facility] [place] [address] documented in this encounter Visit Diagnoses Diagnosis Ocular melanoma, left documented in this encounter Care Teams Kickboxing Instructor Relationship Specialty Start Date End Date Luis E Narayan MD [facility] DR [address] [place] [address] PCP - General Family Medicine 03/26/19 01/19/22 documented as of this encounter
--- OUTSIDE RECORDS SUMMARY | 2024-04-15 15:57 | XMS_ITS | Encounter Summary ---
Author Organization [facility] [place] [address] Care Team Providers Care Textile Technologist Name Role Phone Luis E Narayan MD Primary Care Provider Encounter Details Date Type Department Care Team (Latest Contact Info) Description 07/22/2020 10:04 AM EST - 07/22/2020 11:59 PM [facility] Hospital Encounter Mammography[place] [address] Luis E Narayan MD [facility] DR LILI WALKER[place] [address] Encounter for screening mammogram for breast cancer [...] 08/05/2019 06/14/2021 fluticasone propionate (FLONASE) 50 mcg/actuation [place], Suspension 1 spray by Each Nare route [...] 05/01/2024 11:20 AM EDT Appointment Mammography/[place] [address] Rodney Padilla MD 05/01/2024 1:45 PM EDT [place] [address] Juanpablo Hernandez MD [facility] [place] [address] 05/23/2024 2:45 PM EST Clinical Support Family Medicine at [facility] [address] [place] [address] Julia Low [facility] 01/30/2025 1:30 PM EDT Laboratory Appointment Lab at [facility] Hematology Oncology [address] [place] [address] [phone] 01/30/2025 3:[address] Scan at [facility] [place] [address] Arturo Cordero MD [facility] DR HEMATOLOGY [place] [address] 01/30/2025 4:15 PM EDT Office Visit Hematology and Oncology at [facility] [place] [address] Arturo Cordero MD [facility] DR HEMATOLOGY [place] [address] documented as of this encounter Procedures Procedure [...] cancer documented in this encounter Care Teams Textile Technologist Relationship Specialty Start Date End Date Luis E Narayan MD [facility] [address] [place] [address] PCP - General Family Medicine 03/26/19 01/19/22 documented as of this encounter
--- OUTSIDE RECORDS SUMMARY | 2024-04-15 15:57 | XMS_ITS | Encounter Summary ---
[place] [address] Care Team Providers Care Music Director Name Role Phone Luis E Narayan MD Primary Care Provider Reason for Visit * Reason Onset Date Comments Prior Authorization 06/29/2020 nicotine (NI COTROL) 10 mg Cartridge Encounter Details Date Type Department Care Team (Late st Contact Info) Description 06/29/2020 Telephone Family Medicine at [facility] [address] [place] [address] Aida Aguayo CMA Prior Authorization (nicotine (NICOTROL) [...] Authorization for Primary [place] [address] DENIED: Nicotrol Case/Reference #: [id number] Additional Information from Insurance: The patient has [...] Authorization for Primary [place] [address] Request received via: [facility]ES [facility] Patient: Alize Gramajo Patient : 1960 Insurance Company: [place] Sent via: [employer] Anderson: [id number] Physician: Luis E Narayan MD Medication Requested: [...] 05/01/2024 11:20 AM EDT Appointment Mammography/[place] [address] Rodney Padilla MD 05/01/2024 1:45 PM EDT Office Visit Ophthalmology at [place] [phone] Juanpablo Hernandez MD [facility] [place] [address] 05/23/2024 2:45 PM EST Clinical Support Family Medicine at [facility] [address] [place] [address] Julia Low [facility] 01/30/2025 1:30 PM EDT Laboratory Appointment Lab at [facility] Hematology Oncology [address] [place] [address] 01/30/2025 3:[address] [place] [address] Arturo Cordero MD [facility] H[place]ATOLOG[place] [address] 01/30/2025 4:15 PM EDT Office Visit Hematology [place] [address] Arturo Cordero MD [facility] DR HEMATOLOGY [place] [address] documented as of this encounter Visit Diagnoses Not on filedocumented in this encounter Care Teams Music Director Relationship Specialty Start Date End Date Luis E Narayan MD [facility] DR LILI [place] [address] PCP - General Family Medicine 03/26/19 01/19/22 documented as of this encounter
--- OUTSIDE RECORDS SUMMARY | 2024-04-15 15:57 | XMS_ITS | Encounter Summary ---
Author Organization [facility] In[facility] Address [facility] [place] [address] Care Team Providers Care Theatre Director Name Role Phone Luis E Narayan MD Primary Care Provider [phone] Encounter Details Date Type Department Care Team (Late st Contact Info) Description 06/17/2020 [place] [address] Juanpablo Hernandez MD [facility] [place] [address] Social History Tobacco Use Types Packs/Day Years [...] do - please call pt back at [phone] to discuss the next options * Telephone Encounter - Lida Bains - 06/19/2020 10:57 AM EST Phone number given. * Telephone Encounter - Christine Madera - 06/17/2020 10:12 AM EST Left VM letting Alize know that per her conversation with Dr. Hernandez yesterday, Dr. Laura Gordon [facility] [place] has agreed to a remote consult. When Alize calls back please let her know to call [phone] to register for the remote consult documented in this encounter Plan of Treatment Upcoming Encounters Date Type Department Care Team (Late st Contact Info) Description 05/01/2024 11:20 AM EDT Appointment Mammography/[place] [address] Rodney Padilla MD 05/01/2024 1:45 PM EDT Office [place] [address] Juanpablo Hernandez MD [facility] [place] [address] 05/23/2024 2:45 PM EST Clinical Support Family Medicine at [address] [address] Julia Low [facility] 01/30/2025 1:30 PM EDT Laboratory Appointment Lab at [facility] Hematology Oncology [address] [place] [address] 01/30/2025 3:[address] [place] [address] Arturo Cordero MD [facility] DR [place] [address] 01/30/2025 4:15 PM EDT Office Visit [place]ology [place] [address] Arturo Cordero MD [facility] [place] [address] documented as of this encounter Visit Diagnoses Not on filedocumented in this encounter Care Teams Theatre Director Relationship Specialty Start Date End Date Luis E Narayan MD [facility] [address] [place] [address] PCP - General Family Medicine 03/26/19 01/19/22 documented as of this encounter
--- OUTSIDE RECORDS SUMMARY | 2024-04-15 15:57 | XMS_ITS | Encounter Summary ---
Author Organization [facility] [place] [address] Care Team Providers Care Builder'S Labourer Name Role Phone Luis E Narayan MD Primary Care Provider [phone] Reason for Visit * Auth/Cert Specialty Diagnoses / Procedures Referred By Gonzalez kumari Referred To Contact Diagnoses Pigmented large conjunctival lesion Procedures PRO EXCIS CORNEA LESN EXCISION OF LESION, CORNEA, EXCEPT PTERYGIUM (WRVU 7.5) Referral ID Status Reason Start Date Expiration Date Visits Re quested Visits Authorized [id number] 1 1 Encounter Details Date Type Department Care Team (Late st Contact Info) Description 05/14/2020 12:00 PM EST - 05/14/2020 12:55 PM EST Surgery [place] [address] Mert Hernandez MD [facility] [place] [address] EXCISION OF LESION, CORNEA, EXCEPT PTERYGIUM (WRVU [...] surgery Mert Hernandez MD Section of ophthalmology [facility] [phone] - Keep your eye patched, shielded, clean and dry overnight. The patch will be removed during your follow up visit with Dr. Hernandez tomorrow. - The surgery center nurses should confirm time of your follow up appointment for tomorrow with . This appointment will be at the Eye Clinic in the main building at [facility]. - Mild discomfort is normal, but if you have any severe eye pain or bleeding call [phone] and ask to speak to the eye doctor section crews activities clerk. 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 * Grecia Lamb RN - 05/11/2020 9:20 AM EST During this call the patient was questioned regarding travel outside of [facility], fever, cough, SOB or other [...] again, temperature will be taken, patient and caregiver/company tanker truck driver will be given a mask to [...] Hernandez MD - 05/14/2020 1:14 PM EST [facility] Operative Note Patient Name: Alize Gramajo : [id number] MR#: [id number] Case Date: 05/14/2020 Surgeon: Surgeon(s) and Role: [...] 2 mL Surgical Staff/Assistants: Mert Hernandez M.D. ([id number]) * Preoperative Diagnosis: Limbal conjunctival tumor, left [...] fresh instruments were obtained.The amniotic membrane donor [id number] from [employer] was applied to the scleral bed and [...] [place] [address] Rodney Padilla MD 05/01/2024 1:45 PM EDT Office [place] [address] Mert Hernandez MD [facility] [place] [address] 05/23/2024 2:45 PM EST Clinical Support Family Medicine at [facility] [address] [place] [address] Julia Low [facility] 01/30/2025 1:30 PM EDT Laboratory Appointment Lab at [facility] Hematology Oncology [address] [place] [address] 01/30/2025 3:[address] [place] [address] Arturo Cordero MD [facility] DR HEMATOLOGY [place] [address] 01/30/2025 4:15 PM EDT Office Visit Hematology [place] [address] Arturo Cordero MD [facility] DR HEMATOLOGY [place] [address] documented as of this encounter Procedures Procedure [...] Place Amniotic Membrane Ocular Surface;Single Layer Sutured (53682) 05/14/2020 12:04 PM EST Pigmented large conjunctival lesion Destr Corneal Lesn, Cryo, Photo, Therm (91297) 05/14/2020 12:04 PM EST Pigmented large conjunctival lesion Excis Cornea Lesn ([id number]) 05/14/2020 12:04 PM EST Pigmented large conjunctival lesion EXCISION OF LESION, CORNEA, EXCEPT PTERYGIUM Routine 05/14/2020 10:58 AM EST documented in this encounter Results * Specimen to Pathology (05/14/2020 12:47 PM EST) AP Specimen 05/14/2020 12:4 7 PM EST 05/14/2020 12:47 PM EST Narrative [facility] - 05/14/2020 12:47 PM EST Specimen requisition ordered. ??Separate Pathology report to follow Mert Hernandez MD PATHOLOGY/CYTOLOGY O ULISES Performing Organization Address City/[facility]/ZIP Co de Phone Number [facility] [place] [address] * Specimen to Pathology (05/14/2020 12:47 PM EST) AP Specimen 05/14/2020 12:4 7 PM EST 05/14/2020 12:47 PM EST Narrative [facility] - 05/14/2020 12:47 PM EST Specimen requisition ordered. ??Separate Pathology report to follow Mert Hernandez MD PATHOLOGY/CYTOLOGY O ULISES [facility] [place] [address] * Specimen to Pathology (05/14/2020 12:47 PM EST) AP Specimen 05/14/2020 12:4 7 PM EST 05/14/2020 12:47 PM EST Narrative [facility] - 05/14/2020 12:47 PM EST Specimen requisition ordered. ??Separate Pathology report to follow Mert Hernandez MD PATHOLOGY/CYTOLOGY O ULISES Performing Organization Address [facility] Co de Phone Number [facility] [place] [address] * Specimen to Pathology (05/14/2020 12:47 PM EST) AP Specimen 05/14/2020 12:4 7 PM EST 05/14/2020 12:47 PM EST Narrative [facility] - 05/14/2020 12:47 PM EST Specimen requisition ordered. ??Separate Pathology report to follow Mert Hernandez MD PATHOLOGY/CYTOLOGY O ULISES Performing Organization Address [facility] Co de Phone Number [facility] [place] [address] * Solid Tumor NGS Panel (05/14/2020 12:40 PM EST) Tissue specimen (specimen) 05/14/2020 12:40 PM EST 06/01/2020 11:57 AM EST Narrative Resulting Agency Comment Spec In Lab Mert Hernandez MD PATHOLOGY/CYTOLOGY O ULISES Performing Organization Address [facility] Co de Phone Number [facility] [place] [address] * Surgical Pathology Report (05/14/2020 12:40 PM EST) Final Diagnosis [id number] ? Location: [facility] The signing pathologist has [...] PhD, Allen Verified: ??05/20/2020 ?Dermatopathologist Performed at: ??-[facility] Dept. of Pathology, [place], [place] DISCUSSION A( Left eye, conjunctiva excision) [...] labeled D1. ??mayra 05/20/2020 3:13 PM EST [facility] SPECIMEN FROM SKIN / Unknown 05/14/2020 12:40 PM EST 05/14/2020 12:40 PM EST SPECIMEN FROM SKIN / Unknown 05/14/2020 12:40 PM EST 05/14/2020 12:40 PM EST SPECIMEN FROM SKIN / Unknown 05/14/2020 12:40 PM EST 05/14/2020 12:40 PM EST SPECIMEN FROM SKIN / Unknown 05/14/2020 12:40 PM EST 05/14/2020 12:40 PM EST Mert Hernandez MD PATHOLOGY/CYTOLOGY O ULISES [facility] [place] [address] documented in this encounter Visit Diagnoses Not [...] 1120 at 1115, Last dose on Carolee 11 at 1125, 1 drop to the operative [...] on Carolee 11 at 1216, Until Carolee 05/14/20 at 1534, [...] on Carolee 05/14/20 at 1309, Until Carolee 11 at 1534, [...] time) documented in this encounter Care Teams Builder'S Labourer Relationship Specialty Start Date End Date Luis E Narayan MD [facility] DR [place] [address] PCP - General Family Medicine 03/26/19 01/19/22 documented as of this encounter
--- OUTSIDE RECORDS SUMMARY | 2024-04-15 15:57 | XMS_ITS | Encounter Summary ---
Author Organization [facility] [place] [address] Care Team Providers Care Vp Security Name Role Phone Luis E Narayan MD Primary Care Provider Reason for Referral * Diagnostic Test (Routine) - Closed Specialty Diagnoses / Procedures Referred By Contac t Referred To Contact Radiology Diagnoses Ocular melanoma, left Malignant melanoma, unspecified site Procedures CT Neck Soft Tissue w Contrast (Generic) Arturo Cordero MD [facility] DR HEMATOLOGY [place] [address] [facility] [place] [address] Referral ID Status Reason Start Date Expiration Date V isits Requested Visits Authorized [id number] Closed Specialty Service Requested 06/08/2020 12/06/2021 1 1 * Diagnostic Test (Routine) - Closed Specialty Diagnoses / Procedures Referred By Contac t Referred To Contact Radiology Diagnoses Ocular melanoma, left Renal cell cancer, left Procedures CT Chest Abdomen Pelvis w Contrast (Generic) Sri Frederick MD [facility] DR HEMATOLOGY/[place] [address] [facility] [place] [address] Referral ID Status Reason Start Date Expiration Date V isits Requested Visits Authorized [id number] Closed Specialty Service Requested 05/26/2020 11/23/2021 1 1 Reason for Visit * Diagnostic Test (Routine) - Closed Specialty Diagnoses / Procedures Referred By Contac t Referred To Contact Radiology Diagnoses Ocular melanoma, left Renal cell cancer, left Procedures CT Chest Abdomen Pelvis w Contrast (Generic) Sri Frederick MD [facility] DR HEMATOLOGY/[place] [address] [facility] [place] [address] Referral ID Status Reason Start Date Expiration Date V isits Requested Visits Authorized [id number] Closed Specialty Service Requested 05/26/2020 11/23/2021 1 1 Encounter Details Date Type Department Care Team (Latest Contact Info) Description 06/12/2020 3:32 PM EST - 06/12/2020 11:59 PM EST Hospital [place] [address] Arturo Cordero MD [facility] DR HEMATOLOGY [place] [address] Ocular melanoma, left; Renal cell cancer, left; [...] 08/05/2019 06/14/2021 fluticasone propionate (FLONASE) 50 mcg/actuation [place], Suspension 1 spray by Each Nare route [...] 05/01/2024 11:20 AM EDT Appointment Mammography[place] [address] Rodney Padilla MD 05/01/2024 1:45 PM EDT Office [place] [address] Juanpablo Hernandez MD [facility] OPHTHALMOLOGY [place], [place] [phone] 05/23/2024 2:45 PM EST Clinical Support Family Medicine at [address] [phone] Julia Low [facility] 01/30/2025 1:30 PM EDT Laboratory Appointment Lab at [facility] Hematology Oncology [address] [place] [address] 01/30/2025 3:[address] [place] [address] Arturo Cordero MD [facility] DR HEMATOLOGY [place] [address] 01/30/2025 4:15 PM EDT Office Visit Hematology and Oncology at [facility] [place] [address] Arturo Cordero MD [facility] HEMATOLOGY [place] [address] documented as of this encounter Procedures Procedure [...] ? Electronically signed by: Paulina Saldivar MD, [facility] ([phone]), at 06/14/2020 8:22 AM Narrative 06/14/2020 8:22 [...] below. Electronically signed by: Paulina Saldivar MD, [facility]([phone]), at 06/14/2020 8:22 AM Arturo Cordero MD [...] mLs documented in this encounter Care Teams Vp Security Relationship Specialty Start Date End Date Luis E Narayan MD [facility] [address] [place] [address] PCP - General Family Medicine 03/26/19 01/19/22 documented as of this encounter
--- OUTSIDE RECORDS SUMMARY | 2024-04-15 15:57 | XMS_ITS | Encounter Summary ---
[place] [address] Care Team Providers Care Contracting Engineer Name Role Phone Luis E Narayan MD Primary Care Provider Encounter Details Date Type Department Care Team (Latest Contact Info) Description 06/16/2020 10:30 AM EST Clinical Support [place]ematology [place] [address] Malika Ye Cigarette nicotine dependence without complication [...] Nicotine inhaler) Expected Quit Date: 09/28/19 Given [facility] Tobacco Resource Packet?: Yes Eligible for Lung Cancer Screening?: No Follow up with: [facility] Smoking Cessation Program ..Thoracic Surgery - Tobacco Cessation Consultation [facility] [place] [facility] [place], [place] [address] FAX: HPI: Alize Gramajo is a 59 y.o. female who is being seen today for tobacco cessation. Type of tobacco used: () Smokeless tobacco () e-cigarette (X)Cigarettes Brand currently smoking: [employer] Gold Current amount: 1 ppd Cost per [...] smoking cessation counseling. She is currently smoking Peshastin Golds and does kind of wish to [...] inhaler be sent to [facility] in [place]. 2. Discussed behavioral change including distraction, exercise, positive thinking, deep breathing, using anxiety medications if needed, asking for help 3. 30 minutes of exercise daily 4. Call with any questions or concerns 5. Follow up in one week Malika Ye 06/16/20 Thoracic Surgery - Tobacco Cessation [facility] documented in this encounter Plan of Treatment Upcoming Encounters Date Type Department Care Team (Late st Contact Info) Description 05/01/2024 11:20 AM EDT Appointment Mammography/[place] [address] Rodney Padilla MD 05/01/2024 1:45 PM EDT Office [place] [address] Juanpablo Hernandez MD [facility] [place] [address] 05/23/2024 2:45 PM EST Clinical Support Family Medicine at [facility] [address] [place] [address] Julia Low, [facility] 01/30/2025 1:30 PM EDT Laboratory Appointment Lab at [facility] Hematology Oncology [address] [place] [address] 01/30/2025 3:[address] [place] [address] Arturo Cordero MD [facility] HEMATOLOGY [place] [address] 01/30/2025 4:15 PM EDT Office Visit Hematology [place] [address] Arturo Cordero MD [facility] DR HEMATOLOGY [place] [address] documented as of this encounter Visit Diagnoses Diagnosis Cigarette nicotine dependence without complication Tobacco use disorder documented in this encounter Care Teams Contracting Engineer Relationship Specialty Start Date End Date Luis E Narayan MD [facility] DR LILI WALKER-[place] [address] PCP - General Family Medicine 03/26/19 01/19/22 documented as of this encounter
--- OUTSIDE RECORDS SUMMARY | 2024-04-15 15:57 | XMS_ITS | Encounter Summary ---
[place] [address] Care Team Providers Care Computer Assistant Name Role Phone Luis E Narayan MD Primary Care Provider [phone] Reason for Visit * Reason Onset Date Comments Medication Refill 07/26/2020 Encounter Details Date Type Department Care Team (Late st Contact Info) Description 07/26/2020 Refill Family Medicine at [facility] [address] [place] [address] Luis E Narayan MD [facility] DR LILI WALKER-[place] [address] Type 2 diabetes mellitus without long-term current [...] 05/01/2024 11:20 AM EDT Appointment Mammography/[place] [address] Rodney Padilla MD 05/01/2024 1:45 PM EDT Office Visit [place] [address] Juanpablo Hernandez MD [facility] [place] [address] 05/23/2024 2:45 PM EST Clinical Support Family Medicine at [facility] [address] [place] [address] Julia Low, [facility] 01/30/2025 1:30 PM EDT Laboratory Appointment Lab at [facility] Hematology Oncology [address] [place] [address] 01/30/2025 3:[address] [place] [address] Arturo Cordero MD [facility] HEMATOLOGY [place] [address] 01/30/2025 4:15 PM EDT Office Visit Hematology [place] [address] Arturo Cordero MD [facility] DR HEMATOLOGY [place] [address] documented as of this encounter Visit Diagnoses Diagnosis Type 2 diabetes mellitus without long-term current use of insulin documented in this encounter Care Teams Computer Assistant Relationship Specialty Start Date End Date Luis E Narayan MD [facility] DR LILI WALKER-[place] [address] PCP - General Family Medicine 03/26/19 01/19/22 documented as of this encounter
--- OUTSIDE RECORDS SUMMARY | 2024-04-15 15:57 | XMS_ITS | Encounter Summary ---
Author Organization [facility] [place] [address] Care Team Providers Care Kosher Sealer Name Role Phone Luis E Narayan MD Primary Care Provider Reason for Visit * Reason Onset Date Comments Medication Refill 06/11/2020 Encounter Details Date Type Department Care Team (Late st Contact Info) Description 06/11/2020 [place] [phone] Juanpablo Hernandez MD [facility] [place] [place] [address] Conjunctival tumor Social History Tobacco Use Types [...] 05/01/2024 11:20 AM EDT Appointment Mammography/[place] [address] Rodney Padilla MD 05/01/2024 1:45 PM EDT Office [place] [address] Juanpablo Hernandez MD [facility] [place] [place] [address] 05/23/2024 2:45 PM EST Clinical Support Family Medicine at [facility] [address] [place] [address] Julia Low, [facility] 01/30/2025 1:30 PM EDT Laboratory Appointment Lab at [facility] Hematology Oncology [address] [place] [address] 01/30/2025 3:[address] [place] [address] Arturo Cordero MD [facility] DR HEMATOLOGY [place] [address] 01/30/2025 4:15 PM EDT Office Visit Hematology [place] [address] Arturo Cordero MD [facility] HEMATOLOGY [place] [address] documented as of this encounter Visit Diagnoses Diagnosis Conjunctival tumor Neoplasms of unspecified nature, other specified sites documented in this encounter Care Teams Kosher Sealer Relationship Specialty Start Date End Date Luis E Narayan MD [facility] LILI [place] [address] PCP - General Family Medicine 03/26/19 01/19/22 documented as of this encounter
--- OUTSIDE RECORDS SUMMARY | 2024-04-15 15:57 | XMS_ITS | Encounter Summary ---
Author Organization [facility] Address [facility] [place] [address] Care Team Providers Care Mcat Tutor Name Role Phone Luis E Narayan MD Primary Care Provider [phone] Encounter Details Date Type Department Care Team (Late st Contact Info) Description 06/18/2020 Orders Only Family Medicine at [facility] [address] [place] [address] Luis E Narayan MD [facility] DR LILI AZEVED[place] [address] Social History Tobacco Use Types Packs/Day Years [...] 05/01/2024 11:20 AM EDT Appointment Mammography[place] [address] Rodney Padilla MD 05/01/2024 1:45 PM EDT Office [place] [address] Juanpablo Hernandez MD [facility] [address] 05/23/2024 2:45 PM EST Clinical Support Family Medicine at [facility] [address] [place] [address] Julia Low, [facility] 01/30/2025 1:30 PM EDT Laboratory Appointment Lab at [place] Hematology Oncology [address] [place] [address] 01/30/2025 3:[address] [place] [address] Arturo Cordero MD [facility] HEMATOLOGY [place] [address] 01/30/2025 4:15 PM EDT Office Visit Hematology [place] [address]1000 Arturo Cordero MD [facility] HEMATOLOGY [place] [address] documented as of this encounter Visit Diagnoses Not on filedocumented in this encounter Care Teams Mcat Tutor Relationship Specialty Start Date End Date Luis E Narayan MD [facility] DR LILI AZEV[place] [address] PCP - General Family Medicine 03/26/19 01/19/22 documented as of this encounter
--- OUTSIDE RECORDS SUMMARY | 2024-04-15 15:57 | XMS_ITS | Encounter Summary ---
Author Organization [facility] [place] [address] Care Team Providers Care Business Continuity Coordinator Name Role Phone Luis E Narayan MD Primary Care Provider [phone] Reason for Visit * Reason Comments Post Op Encounter Details Date Type Department Care Team (Late st Contact Info) Description 07/02/2020 1:45 PM EST Office [place] [address] Juanpablo Hernandez MD [facility] [place] [address] Malignant melanoma of conjunctiva, left Social History [...] AM EDT Appointment Mammography/DXA at [place] [phone] Rodney Padilla MD 05/01/2024 1:45 PM EDT Office Visit Ophthalmology at [place] [phone] Juanpablo Hernandez MD [facility] [place] [address] 05/23/2024 2:45 PM EST Clinical Support Family Medicine at [facility] [address] [place] [address] Julia Low, [facility] 01/30/2025 1:30 PM EDT Laboratory Appointment Lab at [facility] Hematology Oncology [address] [place] [address] 01/30/2025 3:[address] Scan at [place] [phone] Arturo Cordero MD [facility] DR [place] [address] 01/30/2025 4:15 PM EDT Office Visit Hematology and Oncology at [place] [phone] Arturo Cordero MD [facility] DR [place] [address] documented as of this encounter Visit Diagnoses Diagnosis Malignant melanoma of conjunctiva, left documented in this encounter Care Teams Business Continuity Coordinator Relationship Specialty Start Date End Date Luis E Narayan MD [facility] DR LILI [place] [address] PCP - General Family Medicine 03/26/19 01/19/22 documented as of this encounter
--- OUTSIDE RECORDS SUMMARY | 2024-04-15 15:57 | XMS_ITS | Encounter Summary ---
[place] [address] Care Team Providers Care Forestry Patrolman Name Role Phone Luis E Narayan MD Primary Care Provider Reason for Visit * Reason Onset Date Comments Medication Refill 06/22/2020 Encounter Details Date Type Department Care Team (Late st Contact Info) Description 06/22/2020 Refill Family Medicine at [facility] [address] [place] [address] Bonny Emanuel MD [address] [place] [address] Mixed hyperlipidemia Social History Tobacco Use Types [...] 05/01/2024 11:20 AM EDT Appointment Mammography[place] [address] Rodney Padilla MD 05/01/2024 1:45 PM EDT Office [place] [address] Juanpablo Hernandez MD [facility] [place] [address] 05/23/2024 2:45 PM EST Clinical Support Family Medicine at [facility] [address] [place] [address] Julia Low [facility] 01/30/2025 1:30 PM EDT Laboratory Appointment Lab at [facility] Hematology Oncology [address] [place] [address] 01/30/2025 3:[address] [place] [address] Arturo Cordero MD [facility] HEMATOLOGY [place] [address] 01/30/2025 4:15 PM EDT Office Visit Hematology [place] [address] Arturo Cordero MD [facility] DR HEMATOLOGY [place] [address] documented as of this encounter Visit Diagnoses Diagnosis Mixed hyperlipidemia documented in this encounter Care Teams Forestry Patrolman Relationship Specialty Start Date End Date Luis E Narayan MD [facility] DR LILI AZEVEDO[facility] [address] PCP - General Family Medicine 03/26/19 01/19/22 documented as of this encounter
--- OUTSIDE RECORDS SUMMARY | 2024-04-15 15:57 | XMS_ITS | Encounter Summary ---
Author Organization [facility] [place] [address] Care Team Providers Care Associate Spa Director Name Role Phone Luis E Narayan MD Primary Care Provider Reason for Referral * Diagnostic Test (Routine) - Closed Specialty Diagnoses / Procedures Referred By Contac t Referred To Contact Radiology Diagnoses Ocular melanoma, left Procedures MRI Brain wwo Contrast (Generic) Sri Frederick MD [facility] DR HEMATOLOGY/[place] [address] [place] [address] Referral ID Status Reason Start Date Expiration Date V isits Requested Visits Authorized [id number] Closed Specialty Service Requested 05/26/2020 11/23/2021 1 1 Reason for Visit * Diagnostic Test (Routine) - Closed Specialty Diagnoses / Procedures Referred By Contac t Referred To Contact Radiology Diagnoses Ocular melanoma, left Procedures MRI Brain wwo Contrast (Generic) Sri Frederick MD [facility] HEMATOLOGY/[place] [address] [place] [address] Referral ID Status Reason Start Date Expiration Date V isits Requested Visits Authorized [id number] Closed Specialty Service Requested 05/26/2020 11/23/2021 1 1 Encounter Details Date Type Department Care Team (Latest Contact Info) Description 06/12/2020 2:05 PM EST - 06/12/2020 3:31 PM EST Hospital Encounter MRI at [facility] [place] [address] Arturo Cordero MD [facility] DR HEMATOLOGY [place] [address] Ocular melanoma, left Discharge Disposition: Home Social [...] 08/05/2019 06/14/2021 fluticasone propionate (FLONASE) 50 mcg/actuation [place], Suspension 1 spray by Each Nare route [...] 05/01/2024 11:20 AM EDT Appointment Mammography/[place] [address] Rodney Padilla MD 05/01/2024 1:45 PM EDT Office [place] [address] Juanpablo Hernandez MD [facility] [place] [address] 05/23/2024 2:45 PM EST Clinical Support Family Medicine at [place] [address] [place] [address] Julia Low, [facility] 01/30/2025 1:30 PM EDT Laboratory Appointment Lab at [facility] Hematology Oncology [address] [place] [address] 01/30/2025 3:[address] [place] [address] Arturo Cordero MD [facility] DR HEMATOLOGY [place] [address] 01/30/2025 4:15 PM EDT Office Visit [place]ology [place] [address] Arturo Cordero MD [facility] HEMATOLOGY [place] [address] documented as of this encounter Procedures Procedure [...] mLs documented in this encounter Care Teams Associate Spa Director Relationship Specialty Start Date End Date Luis E Narayan MD [facility] [place] [address] PCP - General Family Medicine 03/26/19 01/19/22 documented as of this encounter
--- OUTSIDE RECORDS SUMMARY | 2024-04-15 15:57 | XMS_ITS | Encounter Summary ---
[place] [address] Care Team Providers Care Conche Loader And Unloader Name Role Phone Luis E Narayan MD Primary Care Provider [phone] Reason for Visit * Reason Onset Date Comments Medication Refill 06/01/2020 Pred Forte to [facility] Encounter Details Date Type Department Care Team (Late st Contact Info) Description 06/01/2020 [place] [address] Juanpablo Hernandez MD [facility] [place] [place] [address] Conjunctival tumor Social History Tobacco Use Types [...] AM EDT Appointment Mammography/[place] [address] Rodney Padilla MD 05/01/2024 1:45 PM EDT Office [place] [address] Juanpablo Hernandez MD [facility] [place] [address] 05/23/2024 2:45 PM EST Clinical Support Family Medicine at [facility] [address] [place] [address] Julia Low [facility] 01/30/2025 1:30 PM EDT Laboratory Appointment Lab at [facility] Hematology Oncology [address] [place] [address] 01/30/2025 3:[address] [place] [address] Arturo Cordero MD [facility] [place] [address] 01/30/2025 4:15 PM EDT Office Visit Hematology [place] [address]1000 Arturo Cordero MD [facility] [address] [place] [address] documented as of this encounter Visit Diagnoses Diagnosis Conjunctival tumor Neoplasms of unspecified nature, other specified sites documented in this encounter Care Teams Conche Loader And Unloader Relationship Specialty Start Date End Date Luis E Narayan MD [facility] DR LILI [place] [address] PCP - General Family Medicine 03/26/19 01/19/22 documented as of this encounter
--- OUTSIDE RECORDS SUMMARY | 2024-04-15 15:57 | XMS_ITS | Encounter Summary ---
Author Organization [place] [address] Care Team Providers Care Patient Support Associate Name Role Phone Luis E Narayan MD Primary Care Provider [phone] Reason for Visit * Reason Onset Date Comments Medication Refill 05/25/2020 Encounter Details Date Type Department Care Team (Late st Contact Info) Description 05/25/2020 Refill Family Medicine at [facility] [address] [place] [address] Bonny Emanuel MD [address] [place] [address] Essential hypertension Social History Tobacco Use Types [...] 05/01/2024 11:20 AM EDT Appointment Mammography/[place] [address] Rodney Padilla MD 05/01/2024 1:45 PM EDT Office [place] [address] Juanpablo Hernandez MD [facility] [place] [address] 05/23/2024 2:45 PM EST Clinical Support Family Medicine at [facility] [address] [place] [address] Julia Low, [facility] 01/30/2025 1:30 PM EDT Laboratory Appointment Lab at [facility] Hematology Oncology [address] [place] [address] 01/30/2025 3:[address] [place] [address]1000 Arturo Cordero MD [facility] HEMATOLOGY [place] [address] 01/30/2025 4:15 PM EDT Office Visit Hematology [place] [address] Arturo Cordero MD [facility] HEMATOLOGY [place] [address] documented as of this encounter Visit Diagnoses Diagnosis Essential hypertension Unspecified essential hypertension documented in this encounter Care Teams Patient Support Associate Relationship Specialty Start Date End Date Luis E Narayan MD [facility] DR LILI WALKER[place] [address] PCP - General Family Medicine 03/26/19 01/19/22 documented as of this encounter
--- OUTSIDE RECORDS SUMMARY | 2024-04-15 15:57 | XMS_ITS | Encounter Summary ---
[place] [address] Care Team Providers Care Information Technology Assistant Name Role Phone Luis E Narayan MD Primary Care Provider Reason for Visit * Reason Onset Date Comments Medication Refill 06/25/2020 Encounter Details Date Type Department Care Team (Late st Contact Info) Description 06/25/2020 Refill Family Medicine at [facility] [address] [place] [address] Bonny Emanuel MD [address] [place] [address] Social History Tobacco Use Types Packs/Day Years [...] 05/01/2024 11:20 AM EDT Appointment Mammography/[place] [address]1000 Rodney Padilla MD 05/01/2024 1:45 PM EDT Office [place] [address] Juanpablo Hernandez MD [facility] [place] [place] [address] 05/23/2024 2:45 PM EST Clinical Support Family Medicine at [facility] [address] [place] [address] Julia Low [facility] 01/30/2025 1:30 PM EDT Laboratory Appointment Lab at [facility] Hematology Oncology [address] [place] [address] 01/30/2025 3:[address] [place] [address]1000 Arturo Cordero MD [facility] [place] [address] 01/30/2025 4:15 PM EDT Office Visit Hematology [place] [address] Arturo Cordero MD [facility] [place] [address] documented as of this encounter Visit Diagnoses Not on filedocumented in this encounter Care Teams Information Technology Assistant Relationship Specialty Start Date End Date Luis E Narayan MD [facility] DR LILI [place] [address] PCP - General Family Medicine 03/26/19 01/19/22 documented as of this encounter
--- OUTSIDE RECORDS SUMMARY | 2024-04-15 15:57 | XMS_ITS | Encounter Summary ---
[place] [address] Care Team Providers Care Still Pump Operator Name Role Phone Luis E Narayan MD Primary Care Provider Reason for Visit * Reason Onset Date Comments Post Op Post Op 05/15/2020 Encounter Details Date Type Department Care Team (Late st Contact Info) Description 05/15/2020 1:30 PM EST Office Visit [place] [address] Juanpablo Hernandez MD [facility] [place] [address] Conjunctival tumor Social History Tobacco Use Types [...] Instruction following eye surgery Section of Ophthalmology [facility] 1) AVOID EYE INJURIES: Following eye surgery [...] DECREASING VISION: There is always a doctor conduit worker at the eye clinic if you develop [...] 11:20 AM EDT Appointment Mammography/[place] [address] Rodney Padilla MD 05/01/2024 1:45 PM EDT Office Visit [place] [address]1000 Juanpablo Hernandez MD [facility] [place] [address] 05/23/2024 2:45 PM EST Clinical Support Family Medicine at [facility] [address] [place] [address] Julia Low, [facility] 01/30/2025 1:30 PM EDT Laboratory Appointment Lab at [facility] Hematology Oncology [address] [place] [address] 01/30/2025 3:[address] [place] [address] Arturo Cordero MD [facility] DR HEMATOLOGY [place] [address] 01/30/2025 4:15 PM EDT Office Visit Hematology [place] [address] Arturo Cordero MD [facility] DR HEMATOLOGY [place] [address] documented as of this encounter Visit Diagnoses Diagnosis Conjunctival tumor Neoplasms of unspecified nature, other specified sites documented in this encounter Care Teams Still Pump Operator Relationship Specialty Start Date End Date Luis E Narayan MD [facility] [address] [place] [address] PCP - General Family Medicine 03/26/19 01/19/22 documented as of this encounter
--- OUTSIDE RECORDS SUMMARY | 2024-04-15 15:57 | XMS_ITS | Encounter Summary ---
Author Organization Count Includes [facility] [place] [address] Care Team Providers Care Publications Writer Name Role Phone Luis E Narayan MD Primary Care Provider Reason for Referral * Diagnostic Test (Routine) - Closed Specialty Diagnoses / Procedures Referred By Contchrissy kumari Referred To Contact Radiology Diagnoses Ocular melanoma, left Malignant melanoma, unspecified site Procedures CT Neck Soft Tissue w Contrast (Generic) Arturo Cordero MD [facility] DR [place] [address] [facility] [place] [address] Referral ID Status Reason Start Date Expiration Date V isits Requested Visits Authorized [id number] Closed Specialty Service Requested 06/08/2020 12/06/2021 1 1 Encounter Details Date Type Department Care Team (Late st Contact Info) Description 06/08/2020 Orders Only [place]emat[place] [address] Arturo Cordero MD [facility] DR [place] [address] Ocular melanoma, left; Malignant melanoma, [...] AM EDT Appointment Mammography/DXA at [place] [phone] Rodney Padilla MD 05/01/2024 1:45 PM EDT Office Visit Ophthalmology at [place] [phone] Juanpablo Hernandez MD [facility] [address] 05/23/2024 2:45 PM EST Clinical Support Family Medicine at [place] [address] [place] [address] Julia Low, [facility] 01/30/2025 1:30 PM EDT Laboratory Appointment Lab at [facility] Hematology Oncology [address] [place] [address] 01/30/2025 3:[address] [place] [address]-1000 Arturo Cordero MD [facility] [place] [address] 01/30/2025 4:15 PM EDT Office Visit Hematology [place] [address]1000 Arturo Cordero MD [facility] [place] [address] documented as of this encounter Results * [...] site documented in this encounter Care Teams Publications Writer Relationship Specialty Start Date End Date Luis E Narayan MD [facility] [place] [address] PCP - General Family Medicine 03/26/19 01/19/22 documented as of this encounter
--- OUTSIDE RECORDS SUMMARY | 2024-04-15 15:57 | XMS_ITS | Encounter Summary ---
[place] [address] Care Team Providers Care Fuel Buyer Name Role Phone Luis E Narayan MD Primary Care Provider [phone] Encounter Details Date Type Department Care Team (Latest Contact Info) Description 06/08/2020 1:27 PM EST - 06/08/2020 11:59 PM EST Hospital [place] [address] Discharge Disposition: Home Social History Tobacco Use [...] 08/05/2019 06/14/2021 fluticasone propionate (FLONASE) 50 mcg/actuation [place], Suspension 1 spray by Each Nare route [...] 05/01/2024 11:20 AM EDT Appointment Mammography/[place] [address]-1000 Rodney Padilla MD 05/01/2024 1:45 PM EDT Office Visit Ophthalmology at [place] [phone] Juanpablo Hernandez MD [facility] [place] [address] 05/23/2024 2:45 PM EST Clinical Support Family Medicine at [address] [address] Julia Low, [facility] 01/30/2025 1:30 PM EDT Laboratory Appointment Lab at [facility] Hematology Oncology [address] [place] [address] 01/30/2025 3:[address] [place] [address] Arturo Cordero MD [facility] DR [place]EMAT[place] [address] 01/30/2025 4:15 PM EDT Office Visit Hematology [place] [address] Arturo Cordero MD [facility] [place] [address] documented as of this encounter Visit Diagnoses Not on filedocumented in this encounter Care Teams Fuel Buyer Relationship Specialty Start Date End Date Luis E Narayan MD [facility] [address] [place] [address] PCP - General Family Medicine 03/26/19 01/19/22 documented as of this encounter
--- OUTSIDE RECORDS SUMMARY | 2024-04-15 15:57 | XMS_ITS | Encounter Summary ---
[place] [address] Care Team Providers Care Plant Operations Manager Name Role Phone Luis E Narayan MD Primary Care Provider Reason for Visit * Auth/Cert Specialty Diagnoses / Procedures Referred By Gonzalez kumari Referred To Contact Diagnoses Pigmented large conjunctival lesion Procedures PRO EXCIS CORNEA LESN EXCISION OF LESION, CORNEA, EXCEPT PTERYGIUM (WRVU 7.5) Referral ID Status Reason Start Date Expiration Date Visits Re quested Visits Authorized [id number] 1 1 Encounter Details Date Type Department Care Team (Late st Contact Info) Description 05/14/2020 12:02 PM EST Anesthesia Event [place] [address] Aki George DO [facility] [place] [address] Felipe Ceballos MD [facility] [place] [address] Anesthesia Record Procedure Summary Procedure Name Responsible [...] 1124; median cubital vein (antecubital fossa), right; [id number] catheter system; 22 gauge; Daisha MCCOLLUM ; [...] Procedure Summary Date: 05/14/20 Room / Location: [facility] OR [address] [place] [address] Anesthesia Start: 1202 Anesthesia Stop: 1312 Procedures: [...] All Anesthesia Providers: Anesthesiologist: Aki George DO CONSTRUCTION MANAGEMENT ASSISTANT: Chantell Castellanos CRNA Vitals Value Taken Time BP 136/78 05/14/20 1320 Temp 36.3 ??C (97.3 ??F) 05/14/20 1316 Pulse 65 05/14/20 1321 Resp 18 05/14/20 1316 SpO2 94 % 05/14/20 1321 Pain Level 0 05/14/20 1316 Vitals shown include unvalidated device data. Patient Location: PACU/[facility] Level of Consciousness: Awake and Alert Pain [...] grade (VALENTINO 1) 2018 Normal Pap, HPV Unit Technician eConsult 2019: She should have pap/HPV cotest [...] Bipolar affective disorder in remission Diagnosis in [facility], unconfirmed ??? Anxiety ??? Type 2 diabetes mellitus without long-term current use of insulin ??? TITO (obstructive sleep apnea) PSG 03/05/10 @ 271 lbs: AHI of 27, [facility] AHI of 16, min saturation of 61%, [...] TSH, etc. ??? Coronary artery disease involving [place] coronary artery of [place] heart with angina pectoris History of angina [...] uses inhalerswith good effect ??? Atherosclerosis of [place] coronary artery of [place] heart with angina pectoris 10/09/2007 History [...] 27.41) performed by Avila Medina MD at [facility] MAIN OR Social History Tobacco Use ??? [...] on CPAP, depression/anxiety/bipolar, HLD, HTN, CAD s/p [place] and 4 stents to LCx in 10/2007, [...] EDT Appointment Mammography/[place] [phone] Rodney Padilla MD 05/01/2024 1:45 PM EDT Office Visit Ophthalmology at [place] [phone] Juanpablo Hernandez MD [facility] [place] [address] 05/23/2024 2:45 PM EST Clinical Support Family Medicine at [facility] [address] [place] [phone] Julia Low, [facility] 01/30/2025 1:30 PM EDT Laboratory Appointment Lab at [facility] Hematology Oncology [address] [place] [address] 01/30/2025 3:[address] Scan at [place] [phone] Arturo Cordero MD [facility] DR HEMATOLOGY [place] [address] 01/30/2025 4:15 PM EDT Office Visit Hematology [place] [phone] Arturo Cordero MD [facility] DR HEMATOLOGY [place] [address] documented as of this encounter Visit Diagnoses [...] /hr documented in this encounter Care Teams Plant Operations Manager Relationship Specialty Start Date End Date Luis E Narayan MD [facility] [place] [address] PCP - General Family Medicine 03/26/19 01/19/22 documented as of this encounter
--- OUTSIDE RECORDS SUMMARY | 2024-04-15 15:57 | XMS_ITS | Encounter Summary ---
Author Organization Formerly [facility] [place] [address] Care Team Providers Care Direct Care Staffer Name Role Phone Luis E Narayan MD Primary Care Provider +1- [phone] Encounter Details Date Type Department Care Team (Late st Contact Info) Description 07/14/2020 Telephone Family Medicine at [facility] [address] [place] [address] Toyin Rodriguez Social History Tobacco Use Types [...] EST Law [place] form(s) received from product development engineer bin and placed in provider folder. * Telephone Encounter - Toyin Arboleda LNA - 07/14/2020 4:22 PM EST Law office [place] John form(s) received via [employer] fax catering server. Two patient identifiers confirmed on form(s) Form(s) printed and placed in team product development engineer mail bin. documented in this encounter Plan of Treatment Upcoming Encounters Date Type Department Care Team (Late st Contact Info) Description 05/01/2024 11:20 AM EDT Appointment Mammography/DXA at [place] [phone] Rodney Padilla MD 05/01/2024 1:45 PM EDT Office Visit Ophthalmology at [place] [phone] Juanpablo Hernandez MD [facility] [place] [address] 05/23/2024 2:45 PM EST Clinical Support Family Medicine at [facility] [address] [place] [phone] Julia Low, [facility] 01/30/2025 1:30 PM EDT Laboratory Appointment Lab at [facility] Hematology Oncology [address] [place] [address] 01/30/2025 3:[address] Scan at [place] [phone] Arturo Cordero MD [facility] [place] [address] 01/30/2025 4:15 PM EDT Office Visit H[place]ology [place] [phone] Arturo Cordero MD [facility] [place] [address] documented as of this encounter Visit Diagnoses Not on filedocumented in this encounter Care Teams Direct Care Staffer Relationship Specialty Start Date End Date Luis E Narayan MD [facility] DR LIL[address] [place] [address] PCP - General Family Medicine 03/26/19 01/19/22 documented as of this encounter
--- OUTSIDE RECORDS SUMMARY | 2024-04-15 15:57 | XMS_ITS | Encounter Summary ---
Author Organization Formerly [facility] Address [facility] Siri [facility] [place] [address] Care Team Providers Care Tour Agent Name Role Phone Luis E Narayan MD Primary Care Provider +1- [phone] Reason for Visit * Reason Comments Post Op Encounter Details Date Type Department Care Team (Late st Contact Info) Description 06/16/2020 8:30 AM EST Office [place] [address] Juanpablo Hernandez MD [facility] [place] [address] Malignant melanoma of conjunctiva, left Social History [...] 05/01/2024 11:20 AM EDT Appointment Mammography/DXA at [place] [phone] Rodney Padilla MD 05/01/2024 1:45 PM EDT Office Visit Ophthalmology at [place] [phone] Juanpablo Hernandez MD [facility] [place] [address] 05/23/2024 2:45 PM EST Clinical Support Family Medicine at [address] [phone] Julia Low, [facility] 01/30/2025 1:30 PM EDT Laboratory Appointment Lab at [facility] Hematology Oncology [address] [place] [address] 01/30/2025 3:[address] [place] [address] Arturo Cordreo MD [facility] DR [place] [address] 01/30/2025 4:15 PM EDT Office Visit Hematology [place] [address] Arturo Cordero MD [facility] DR [place] [address] documented as of this encounter Visit Diagnoses Diagnosis Malignant melanoma of conjunctiva, left documented in this encounter Care Teams Tour Agent Relationship Specialty Start Date End Date Luis E Narayan MD [facility] [place] [address] PCP - General Family Medicine 03/26/19 01/19/22 documented as of this encounter
--- OUTSIDE RECORDS SUMMARY | 2024-04-15 15:57 | XMS_ITS | Encounter Summary ---
Author Organization [facility] [place] [address] Care Team Providers Care Real Estate Services Coordinator Name Role Phone Luis E Narayan MD Primary Care Provider Reason for Referral * Diagnostic Test (Routine) - Closed Specialty Diagnoses / Procedures Referred By Contac t Referred To Contact Radiology Diagnoses Ocular melanoma, left Procedures MRI Brain wwo Contrast (Generic) Sri Frederick MD [facility] DR HEMATOLOGY/[place] [address] [facility] [place] [address] Referral ID Status Reason Start Date Expiration Date V isits Requested Visits Authorized [id number] Closed Specialty Service Requested 05/26/2020 11/23/2021 1 1 * Diagnostic Test (Routine) - Closed Specialty Diagnoses / Procedures Referred By Contchrissy t Referred To Contact Radiology Diagnoses Ocular melanoma, left Renal cell cancer, left Procedures CT Chest Abdomen Pelvis w Contrast (Generic) Sri Frederick MD [facility] HEMATOLOGY/[place] [address] [facility] [place] [address] Referral ID Status Reason Start Date Expiration Date V isits Requested Visits Authorized [id number] Closed Specialty Service Requested 05/26/2020 11/23/2021 1 1 Reason for Visit * Reason Comments Follow-up * Consultation (Urgent) - Closed Specialty Diagnoses / Procedures Referred By Gonzalez kumari Referred To Contact Hematology and Oncology Diagnoses Conjunctival tumor Juanpablo Hernandez MD [facility] [place] [address] [facility] Hem Onc [address] [place] [address] Referral ID Status Reason Start Date Expiration Date V isits Requested Visits Authorized [id number] Closed Consult, Test & Treat 05/19/2020 05/19/2021 1 1 Encounter Details Date Type Department Care Team (Late st Contact Info) Description 05/26/2020 2:00 PM EST Office Visit Hematology [place] [address] Arturo Cordero MD [facility] [place] [address] Leandra Lopes APRN [facility] [place] [address] Sri Frederick MD [facility] DR HEMATOLOGY/[place] [address] Ocular melanoma, left (Primary Dx); Renal cell [...] - 05/26/2020 2:00 PM EST INITIAL VISIT [facility] NOTE REFERING PHYSICIAN: Dr. 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 Medina - 03/31/2020: saw her candlemaking laborer Dr. Hernandez and was noted to have [...] uses inhalerswith good effect ??? 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 [...] 05/01/2024 11:20 AM EDT Appointment Mammography/[place] [phone] Rodney Padilla MD 05/01/2024 1:45 PM EDT Office [place] [phone] Juanpablo Hernandez MD [facility] [place] [address] 05/23/2024 2:45 PM EST Clinical Support Family Medicine at [facility] [address] [place] [address] Julia Low, [facility] 01/30/2025 1:30 PM EDT Laboratory Appointment Lab at [facility] Hematology Oncology [address] [place] [address] [phone] 01/30/2025 3:[address] [place] [phone] Arturo Cordero MD [facility] [place] [address] 01/30/2025 4:15 PM EDT Office Visit [place]ematology [place] [address] Arturo Cordero MD [facility] DR [place] [address] Scheduled Orders Name Type Priority Associated Diagnoses [...] contact the number below. Arturo Cordero MD [facility] CT ORDERABLES * MRI Brain wwo Contrast [...] below. Arturo Cordero MD IMG MRI ORDERABLES * T4, free (06/12/2020 2:00 PM EST) Free T4 1.01 0.93 - 1.70 ng/dL [facility] Blood specimen (specimen) 06/12/2020 2:00 PM EST 06/12/2020 2:04 PM EST Narrative Resulting Agency Comment Spec In Lab Arturo Cordero MD CHEMISTRY ORDERABLES Performing Organization Address City/State/[facility] Co de Phone Number [facility] [place] [address] * TSH (06/12/2020 2:00 PM EST) Thyroid Stimulating Hormone 2.53 0.27 - 4.20 mcIU/mL [facility] Blood specimen (specimen) 06/12/2020 2:00 PM EST 06/12/2020 2:04 PM EST Narrative Resulting Agency Comment Spec In Lab Arturo Cordero MD CHEMISTRY ORDERABLES [facility] [place] [address] * Lactate Dehydrogenase (06/12/2020 2:00 PM EST) Lactate Dehydrogenase 198 110 - 220 unit/L [facility] Blood specimen (specimen) 06/12/2020 2:00 PM EST 06/12/2020 2:04 PM EST Narrative Resulting Agency Comment Spec In Lab Arturo Cordero MD CHEMISTRY ORDERABLES Performing Organization Address [facility] Co de Phone Number [facility] [place] [address] * Comprehensive metabolic panel (non-fasting) (06/12/2020 2:00 PM EST) Pathologist [facility] Glucose 166 65 - 199 mg/dL [facility] Comment:Diabetes: >=200 mg/d L plus symptoms Blood Urea Nitrogen 17 8 - 18 mg/dL [facility] Creatinine 0.92 0.70 - 1.20 mg/dL [facility] Sodium 140 135 - 145 mmol/L [facility] Potassium 4.3 3.5 - 5.0 mmol/L [facility] Comment: Please note: ??Patients with WBC >100,000 may have falsely elevated Potassium levels. ??For accurate Potassium quantification in these patients send serum separator tube (gold top) for subsequent determinations. ??Contact the Clinical Chemistry Laboratory if there are any questions. Chloride 104 98 - 107 mmol/L [facility] Carbon Dioxide 28 22 - 31 mmol/L [facility] Anion Gap 8 5 - 15 mmol/L [facility] Calcium 9.4 8.5 - 10.5 mg/dL [facility] Protein, Total 6.8 6.1 - 8.0 gm/dL [facility] Albumin 4.4 3.2 - 5.2 gm/dL [facility] Aspartate Aminotransferase 17 0 - 30 unit/L [facility] Alanine Aminotransferase 22 0 - 30 unit/L [facility] Alkaline Phosphatase 102 35 - 105 unit/L [facility] Bilirubin, Total 0.4 0.2 - 1.3 mg/dL [facility] Est Glomerular Filtration Rate 68 >=60 mL/min/1. 73 m?? [facility] Comment: This patient? s estimated [...] In Lab Arturo Cordero MD CHEMISTRY ORDERABLES [facility] [place] [address] documented in this encounter Visit Diagnoses Diagnosis Ocular melanoma, left- Primary Renal cell cancer, left Ocular melanoma, left Renal cell cancer, left Malignant melanoma, unspecified site Ocular melanoma, left documented in this encounter Care Teams Real Estate Services Coordinator Relationship Specialty Start Date End Date Luis E Narayan MD [facility] [address] [place] [address] PCP - General Family Medicine 03/26/19 01/19/22 documented as of this encounter
--- OUTSIDE RECORDS SUMMARY | 2024-04-15 15:58 | XMS_ITS | Encounter Summary ---
Author Organization [facility] [place] [address] Care Team Providers Care Emergency Room Doctor Name Role Phone Luis E Narayan MD Primary Care Provider Reason for Visit * Reason Onset Date Comments Triage 01/13/2020 Encounter Details Date Type Department Care Team (Late st Contact Info) Description 01/13/2020 Telephone Family Medicine at [facility] [address] [place] [address] Jeff Miller Triage Social History Tobacco Use [...] return call to clinic. Will send [facility] message advising thesame. * Telephone Encounter - Holly Boucher RN - 01/13/2020 3:05 PM EDT Attempted to return call to patient. No answer; call went to unidentified VM. Left generic message requesting return call to clinic at [phone]. * Telephone Encounter - Milo Griffin MD - 01/13/2020 2:57 PM EDT How urgent is pt feeling on rx? Could wait until Sylvain visit vs I can refer to [facility] for possibly prompter eval given bipolar history Milo Griffin MD [facility] * Telephone Encounter - Alejandra Posadas RN [...] but she knows she can't do that senior care Pertinent History: FERCHO 08/05. Next 01/30. Hx [...] leave a message: yes Ok to send [facility] message: no Offered Appointment: yes, Patient requested next available with pcp. MA/Nurse/Boilermaker Mechanic contacted via: Message: yes Call: no Pager: no documented in this encounter Plan of Treatment Upcoming Encounters Date Type Department Care Team (Late st Contact Info) Description 05/01/2024 11:20 AM EDT Appointment Mammography/[place] [phone] Rodney Padilla MD 05/01/2024 1:45 PM EDT Office [place] [phone] Juanpablo Hernandez MD [facility] [place] [address] 05/23/2024 2:45 PM EST Clinical Support Family Medicine at [facility] [address] [place] [address] Julia Low [facility] 01/30/2025 1:30 PM EDT Laboratory Appointment Lab at [facility] Hematology Oncology [address] [place] [address] 01/30/2025 3:[address] [place] [address] Arturo Cordero MD [facility] [place] [address] 01/30/2025 4:15 PM EDT Office Visit Hematology [place] [address] Arturo Cordero MD [facility] [place] [address] documented as of this encounter Visit Diagnoses Not on filedocumented in this encounter Care Teams Emergency Room Doctor Relationship Specialty Start Date End Date Luis E Narayan MD [facility] DR [address] [place] [address] PCP - General Family Medicine 03/26/19 01/19/22 documented as of this encounter
--- OUTSIDE RECORDS SUMMARY | 2024-04-15 15:58 | XMS_ITS | Encounter Summary ---
Author Organization [facility] Address [facility] [place] [address] Care Team Providers Care Crm Business Analyst Name Role Phone Luis E Narayan MD Primary Care Provider +1- [phone] Reason for Visit * Reason Onset Date Comments Medication Refill 04/19/2020 Encounter Details Date Type Department Care Team (Late st Contact Info) Description 04/19/2020 Refill Family Medicine at [facility] [address] [place] [address] Bonny Emanuel MD [address] [place] [address] Social History Tobacco Use Types Packs/Day Years [...] 05/01/2024 11:20 AM EDT Appointment Mammography/[place] [phone] Rodney Padilla MD 05/01/2024 1:45 PM EDT Office [place] [address] Juanpablo Hernandez MD [facility] [place] [address] 05/23/2024 2:45 PM EST Clinical Support Family Medicine at [facility] [address] [place] [address] Julia Low, [facility] 01/30/2025 1:30 PM EDT Laboratory Appointment Lab at [facility] Hematology Oncology [address] [place] [address] 01/30/2025 3:[address] [place] [phone] Arturo Cordero MD [facility] DR HEMATOLOGY [place] [address] 01/30/2025 4:15 PM EDT Office Visit Hematology [place] [address] Arturo Cordero MD [facility] HEMATOLOGY [place] [address] documented as of this encounter Visit Diagnoses Not on filedocumented in this encounter Care Teams Crm Business Analyst Relationship Specialty Start Date End Date Luis E Narayan MD [facility] DR [address] [place] [address] PCP - General Family Medicine 03/26/19 01/19/22 documented as of this encounter
--- OUTSIDE RECORDS SUMMARY | 2024-04-15 15:58 | XMS_ITS | Encounter Summary ---
Author Organization [facility] [place] [address] Care Team Providers Care Pharmacogeneticist Name Role Phone Luis E Narayan MD Primary Care Provider Reason for Visit * Reason Onset Date Comments New Medication Request 02/21/2020 Encounter Details Date Type Department Care Team (Late st Contact Info) Description 02/21/2020 Telephone Family Medicine at [facility] [address] [place] [address] Medhat Phillips New Medication Request Social History [...] I reminded Alize to touch base w/ [facility] about seeking medication management there; if she [...] send my- message: n Offered Appointment: n MA/Nurse/Operation Specialist contacted via: Message: y Call: n Pager: n documented in this encounter Plan of Treatment Upcoming Encounters Date Type Department Care Team (Late st Contact Info) Description 05/01/2024 11:20 AM EDT Appointment Mammography/DXA at [place] [phone] Rodney Padilla MD 05/01/2024 1:45 PM EDT Office Visit Ophthalmology at [place] [phone] Juanpablo Hernandez MD [facility] [place] [address] 05/23/2024 2:45 PM EST Clinical Support Family Medicine at [facility] [address] [place] [address] Julia Low, [facility] 01/30/2025 1:30 PM EDT Laboratory Appointment Lab at [facility] Hematology Oncology [address] [place] [address] 01/30/2025 3:[address] [place] [address] Arturo Cordero MD [facility] DR HEMATOLOGY [place] [address] 01/30/2025 4:15 PM EDT Office Visit [place]ematology [place] [address] Arturo Cordero MD [facility] HEMATOLOGY [place] [address] documented as of this encounter Visit Diagnoses Not on filedocumented in this encounter Care Teams Pharmacogeneticist Relationship Specialty Start Date End Date Luis E Narayan MD [facility] [address] [place] [address] PCP - General Family Medicine 03/26/19 01/19/22 documented as of this encounter
--- OUTSIDE RECORDS SUMMARY | 2024-04-15 15:58 | XMS_ITS | Encounter Summary ---
Author Organization [facility] Address [facility] [place] [address] Care Team Providers Care Chemistry Technician Name Role Phone Luis E Narayan MD Primary Care Provider Reason for Visit * Reason Onset Date Comments Medication Refill 09/04/2019 Encounter Details Date Type Department Care Team (Late st Contact Info) Description 09/04/2019 Refill Family Medicine at [facility] [address] [place] [address] Bonny Emanuel MD [address] [place] [address] Social History Tobacco Use Types Packs/Day Years [...] 11:20 AM EDT Appointment Mammography/[place] [address] Rodney Padilla MD 05/01/2024 1:45 PM EDT Office [place] [address] Juanpablo Hernandez MD [facility] [place] [address] 05/23/2024 2:45 PM EST Clinical Support Family Medicine at [facility] [address] [address] Julia Low, [facility] 01/30/2025 1:30 PM EDT Laboratory Appointment Lab at [facility] Hematology Oncology [address] [place] [address] 01/30/2025 3:[address] [place] [address]1000 Arturo Cordero MD [facility] DR HEMATOLOGY [place] [address] 01/30/2025 4:15 PM EDT Office Visit Hematology [place] [address] Arturo Cordero MD [facility] HEMATOLOGY [place] [address] documented as of this encounter Visit Diagnoses Not on filedocumented in this encounter Care Teams Chemistry Technician Relationship Specialty Start Date End Date Luis E Narayan MD [facility] DR LILI [facility]EVED[place] [address] PCP - General Family Medicine 03/26/19 01/19/22 documented as of this encounter
--- OUTSIDE RECORDS SUMMARY | 2024-04-15 15:58 | XMS_ITS | Encounter Summary ---
Author Organization [facility] Address [facility] [place] [address] Care Team Providers Care Stave Jointer Name Role Phone Luis E Narayan MD Primary Care Provider +1- [phone] Reason for Visit * Reason Onset Date Comments Medication Refill 01/27/2020 Encounter Details Date Type Department Care Team (Late st Contact Info) Description 01/27/2020 Refill Family Medicine at [facility] [address] [place] [address] Luis E Narayan MD [facility] [address] LIL[address] [place] [address] Type 2 diabetes mellitus without long-term current [...] Notes * Telephone Encounter - Ally Mcgarry, [facility] - 01/27/2020 3:32 PM EDT Prescription [...] 05/01/2024 11:20 AM EDT Appointment Mammography/DXA at [place] [phone] Rodney Padilla MD 05/01/2024 1:45 PM EDT Office Visit Ophthalmology at [place] [phone] Juanpablo Hernandez MD [facility] [place] [address] 05/23/2024 2:45 PM EST Clinical Support Family Medicine at [facility] [address] [place] [address] Julia Low, [facility] 01/30/2025 1:30 PM EDT Laboratory Appointment Lab at [facility] Hematology Oncology [address] [place] [address] [phone] 01/30/2025 3:[address] [place] [address] Arturo Cordero MD [facility] [address] [place] [address] 01/30/2025 4:15 PM EDT Office Visit [place]ology [place] [address] Arturo Cordero MD [facility] [place] [address] documented as of this encounter Visit Diagnoses Diagnosis Type 2 diabetes mellitus without long-term current use of insulin documented in this encounter Care Teams Stave Jointer Relationship Specialty Start Date End Date Luis E Narayan MD [facility] [address] [place] [address] PCP - General Family Medicine 03/26/19 01/19/22 documented as of this encounter
--- OUTSIDE RECORDS SUMMARY | 2024-04-15 15:58 | XMS_ITS | Encounter Summary ---
[place] [address] Care Team Providers Care Program Developer Name Role Phone Luis E Narayan MD Primary Care Provider +1- [phone] Encounter Details Date Type Department Care Team (Late st Contact Info) Description 01/03/2020 [place] [address] Aleisha York APRN [facility] [place] [address] Social History Tobacco Use Types Packs/Day Years [...] this morning. The Prior Auth number is [id number], effective today. We will get a fax to our office as well. I talked to [facility] regarding imaging. Surgical date 06/28/2020, and first [...] 9:02 AM EDT To: Avila Medina MD, [facility] U[facility] Nurse, * Subject: ALIZE MANJARREZ [[id number]] ? Good morning, ALIZE MANJARREZ [[id number]] is currently scheduled for a CT Abdomen WWO Contrast on 01/13/2020. ??We have received notification from [facility] on behalf of [place] Medicaid that our [...] a peer to peer review with the Equipment Detailer by calling [facility] at [phone] and using order # [id number] as reference. ??The deadline for completion of the peer to peer is 14 calendar days. ?? Please let me know if you'd like to change the procedure to the recommended alternative, a CT Abdomen W contrast, and I will call [facility] and to get it changed and approved. ?? To cancel or reschedule the patient's scan, please contact the radiology dept at [facility]. Thank you, Laura Orozco Clinical Authorization Services documented in this encounter Plan of Treatment Upcoming Encounters Date Type Department Care Team (Late st Contact Info) Description 05/01/2024 11:20 AM EDT Appointment Mammography/[place] [address] Rodney Padilla MD 05/01/2024 1:45 PM EDT Office [place] [address] Juanpablo Hernandez MD [facility] [place] [address] 05/23/2024 2:45 PM EST Clinical Support Family Medicine at [address] [address] Julia Low, [facility] 01/30/2025 1:30 PM EDT Laboratory Appointment Lab at [facility] Hematology Oncology [address] [place] [address] [phone] 01/30/2025 3:[address] [place] [address] Arturo Cordero MD [facility] DR HEMATOLOGY [place] [address] 01/30/2025 4:15 PM EDT Office Visit Hematology [place] [address] Arturo Cordero MD [facility] DR HEMATOLOGY [place] [address] documented as of this encounter Visit Diagnoses Not on filedocumented in this encounter Care Teams Program Developer Relationship Specialty Start Date End Date Luis E Narayan MD [facility] [address] [place] [address] PCP - General Family Medicine 03/26/19 01/19/22 documented as of this encounter
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
--- OUTSIDE RECORDS SUMMARY | 2024-04-15 15:58 | XMS_ITS | Encounter Summary ---
[place] [address] Care Team Providers Care Irrigation Service Technician Name Role Phone Luis E Narayan MD Primary Care Provider Encounter Details Date Type Department Care Team (Late st Contact Info) Description 04/08/2020 Telephone [place] [address] Arleen Puente Social History Tobacco Use Types Packs/Day [...] 05/01/2024 11:20 AM EDT Appointment Mammography/DXA at [place] [phone] Rodney Padilla MD 05/01/2024 1:45 PM EDT Office Visit Ophthalmology at [place] [address] Juanpablo Hernandez MD [facility] [place] [address] 05/23/2024 2:45 PM EST Clinical Support Family Medicine at [place] [address] [place] [address] uJlia Low, [facility] 01/30/2025 1:30 PM EDT Laboratory Appointment Lab at [facility] Hematology Oncology [address] [place] [address] 01/30/2025 3:[address] Scan at [place] [phone] Arturo Cordero MD [facility] [place] [address] 01/30/2025 4:15 PM EDT Office Visit Hematology [place] [address] Arturo Cordero MD [facility] [place] [address] documented as of this encounter Visit Diagnoses Not on filedocumented in this encounter Care Teams Irrigation Service Technician Relationship Specialty Start Date End Date Luis E Narayan MD [facility] DR L[place] [address] PCP - General Family Medicine 03/26/19 01/19/22 documented as of this encounter
--- OUTSIDE RECORDS SUMMARY | 2024-04-15 15:58 | XMS_ITS | Encounter Summary ---
Author Organization [facility] Address [facility] [place] [address] Care Team Providers Care Picture Frame Maker Name Role Phone Luis E Narayan MD Primary Care Provider [phone] Reason for Visit * Consultation (Routine) - Closed Specialty Diagnoses / Procedures Referred By Gonzalez kumari Referred To Contact Sleep Center Diagnoses TITO (obstructive sleep apnea) Procedures PRG POLYLSOM 6+ YRS SLEEP W CPAP W 4+ ADDL ABHILASH Jhonny Garrett MD [facility] [place] [address] [facility] Sleep Medicine [address] [place] [address] Referral ID Status Reason Start Date Expiration Date V isits Requested Visits Authorized [id number] Closed Test Only 08/02/2019 01/30/2020 1 1 Encounter Details Date Type Department Care Team (Late st Contact Info) Description 08/13/2019 7:30 PM EST Procedure visit Sleep Center at [address] [place] [address] Jhonny Morataya MD [facility] [place] [address] TITO (obstructive sleep apnea) Social [...] Dr Morataya after 8 weeks on treatment. [facility] Sleep Disorders Center REPORT of Split-Night Polysomnography [...] 0.0 Hypopneas & RERAs Hypopnea Definitions: Hypopnea* [facility] Hypopnea AAS Central Hypopneas Hypopneas All [...] Index (Total): 0.0 2.9 0.0 2.9 4.1 *[facility]-defined hypopneas include only hypopneas with a [...] 05/01/2024 11:20 AM EDT Appointment Mammography/[place] [address] Rodney Padilla MD 05/01/2024 1:45 PM EDT Office Visit Ophthalmology at [place] [phone] Juanpablo Hernandez MD [facility] [place] [address] 05/23/2024 2:45 PM EST Clinical Support Family Medicine at [address] [address] Julia Low, [facility] 01/30/2025 1:30 PM EDT Laboratory Appointment Lab at [facility] Hematology Oncology [address] [place] [address] 01/30/2025 3:[address] [place] [address] Arturo Cordero MD [facility] DR HEMATOLOGY [place] [address] 01/30/2025 4:15 PM EDT Office Visit Hematology [place] [address] Arturo Cordero MD [facility] H[place]ATOLOGY [place] [address] documented as of this encounter Visit Diagnoses Diagnosis TITO (obstructive sleep apnea) Obstructive sleep apnea (adult) (pediatric) documented in this encounter Care Teams Picture Frame Maker Relationship Specialty Start Date End Date Luis E Narayan MD [facility] [address] [place] [address] PCP - General Family Medicine 03/26/19 01/19/22 documented as of this encounter
--- OUTSIDE RECORDS SUMMARY | 2024-04-15 15:58 | XMS_ITS | Encounter Summary ---
Author Organization [facility] [place] [address] Care Team Providers Care Marketing Content Manager Name Role Phone Luis E Narayan MD Primary Care Provider [phone]- [phone] Reason for Visit * Reason Onset Date Comments Appointment 03/27/2020 Encounter Details Date Type Department Care Team (Late st Contact Info) Description 03/27/2020 Telephone [place] [address] Juanpablo Hernandez MD [facility] [place] [address] Appointment Social History Tobacco Use Types Packs/Day [...] 11:20 AM EDT Appointment Mammography/[place] [address] Rodney Padilla MD 05/01/2024 1:45 PM EDT Office [place] [address] Juanpablo Hernandez MD [facility] [place] [address] 05/23/2024 2:45 PM EST Clinical Support Family Medicine at [facility] [address] [place] [address] Julia Low, [facility] 01/30/2025 1:30 PM EDT Laboratory Appointment Lab at [facility] Hematology Oncology [address] [place] [address] 01/30/2025 3:[address] [place] [address] Arturo Cordero MD [facility] [place] [address] 01/30/2025 4:15 PM EDT Office Visit Hematology [place] [address] Arturo Cordero MD [facility] [place] [address] documented as of this encounter Visit Diagnoses Not on filedocumented in this encounter Care Teams Marketing Content Manager Relationship Specialty Start Date End Date Luis E Narayan MD [facility] DR [address] [place] [address] PCP - General Family Medicine 03/26/19 01/19/22 documented as of this encounter
--- OUTSIDE RECORDS SUMMARY | 2024-04-15 15:58 | XMS_ITS | Encounter Summary ---
Author Organization [facility] Address [facility] [place] [address] Care Team Providers Care Keel Press Operator Name Role Phone Luis E Narayan MD Primary Care Provider Encounter Details Date Type Department Care Team (Latest Contact Info) Description 01/13/2020 9:45 AM EDT - 01/13/2020 10:44 AM EDT Hospital Encounter XRay at [address] [place] [address] Avila Medina MD [facility] [place] [address] Renal cancer, left Discharge Disposition: Home Social [...] 08/05/2019 06/14/2021 fluticasone propionate (FLONASE) 50 mcg/actuation [place], Suspension 1 spray by Each Nare route [...] 05/01/2024 11:20 AM EDT Appointment Mammography/[place] [address] Rodney Padilla MD 05/01/2024 1:45 PM EDT Office [place] [address] Juanpablo Hernandez MD [facility] [place] [address] 05/23/2024 2:45 PM [facility] Clinical Support Family Medicine at [address] [phone] Julia Low, [facility] 01/30/2025 1:30 PM EDT Laboratory Appointment Lab at [facility] Hematology Oncology [address] [place] [address] 01/30/2025 3:[address] [place] [address] Arturo Cordero MD [facility] HEMATOLOGY [place] [address] 01/30/2025 4:15 PM EDT Office Visit Hematology [place] [address] Arturo Cordero MD [facility] HEMATOLOGY [place] [address] documented as of this encounter Procedures Procedure [...] left documented in this encounter Care Teams Keel Press Operator Relationship Specialty Start Date End Date Luis E Narayan MD [facility] [place] [address] PCP - General Family Medicine 03/26/19 01/19/22 documented as of this encounter
--- OUTSIDE RECORDS SUMMARY | 2024-04-15 15:58 | XMS_ITS | Encounter Summary ---
Author Organization [facility] Siri [facility] [place] [address] Care Team Providers Care Economist Research Assistant Name Role Phone Luis E Narayan MD Primary Care Provider [phone] Encounter Details Date Type Department Care Team (Late Contact Info) Description 08/28/2019 Telephone Family Medicine at [facility] [address] [place] [address] Denisse López, RN Social History Tobacco Use [...] 05/01/2024 11:20 AM EDT Appointment Mammography/[place] [address] Rodney Padilla MD 05/01/2024 1:45 PM EDT Office [place] [address] Juanpablo Hernandez MD [facility] [place] [address] 05/23/2024 2:45 PM EST Clinical Support Family Medicine at [facility] [address] [place] [address] Julia Low [facility] 01/30/2025 1:30 PM EDT Laboratory Appointment Lab at [facility] Hematology Oncology [address] [place] [address] 01/30/2025 3:[address] [place] [address] Arturo Cordero MD [facility] DR [place] [address] 01/30/2025 4:15 PM EDT Office Visit Hematology [place] [address]1000 Arturo Cordero MD [facility] DR [place] [address] documented as of this encounter Visit Diagnoses Not on filedocumented in this encounter Care Teams Economist Research Assistant Relationship Specialty Start Date End Date Luis E Narayan MD [facility] DR LILI [place] [address] PCP - General Family Medicine 03/26/19 01/19/22 documented as of this encounter
--- OUTSIDE RECORDS SUMMARY | 2024-04-15 15:58 | XMS_ITS | Encounter Summary ---
Author Organization [facility] [place] [address] Care Team Providers Care Fire Controlman Name Role Phone Luis E Narayan MD Primary Care Provider [phone]- [phone] Encounter Details Date Type Department Care Team (Late st Contact Info) Description 05/11/2020 Telephone Family Medicine at [facility] [address] [place] [phone] Thania Flores RN Social History Tobacco Use [...] 05/01/2024 11:20 AM EDT Appointment Mammography/[place] [address] Rodney Padilla MD 05/01/2024 1:45 PM EDT Office [place] [address] Juanpablo Hernandez MD [facility] [place] [address] 05/23/2024 2:45 PM EST Clinical Support Family Medicine at [facility] [address] [place] [address] Julia Low, [facility] 01/30/2025 1:30 PM EDT Laboratory Appointment Lab at [facility] [place] Hematology Oncology [address] [place] [address] 01/30/2025 3:[address] [place] [address]1000 Arturo Cordero MD [facility] HEMATOLOGY [place] [address] 01/30/2025 4:15 PM EDT Office Visit Hematology [place] [address] Arturo Cordero MD [facility] HEMATOLOGY [place] [address] documented as of this encounter Visit Diagnoses Not on filedocumented in this encounter Care Teams Fire Controlman Relationship Specialty Start Date End Date Luis E Narayan MD [facility] [address] [place] [address] PCP - General Family Medicine 03/26/19 01/19/22 documented as of this encounter
--- OUTSIDE RECORDS SUMMARY | 2024-04-15 15:58 | XMS_ITS | Encounter Summary ---
Author Organization [facility] [place] [address] Care Team Providers Care Revolving Field Assembler Name Role Phone Luis E Narayan MD Primary Care Provider Encounter Details Date Type Department Care Team (Late st Contact Info) Description 07/26/2019 E-Consult Obstetrics [place] [address] Ally Gruber MD [facility] DR OBSTETRICS [place] [address] Hx of dysplasia of cervix, low grade [...] 05/01/2024 11:20 AM EDT Appointment Mammography/[place] [address]1000 Rodney Padilla MD 05/01/2024 1:45 PM EDT Office [place] [address] Juanpablo Hernandez MD [facility] [place] [address] 05/23/2024 2:45 PM EST Clinical Support Family Medicine at [facility] [address] [place] [address] Julia Low [facility] 01/30/2025 1:30 PM EDT Laboratory Appointment Lab at [facility] Hematology Oncology [address] [place] [address] 01/30/2025 3:[address] [place] [address] Arturo Cordero MD [facility] DR HEMATOLOGY [place] [address] 01/30/2025 4:15 PM EDT Office Visit Hematology [place] [address]1000 Arturo Cordero MD [facility] DR HEMATOLOGY [place] [address] documented as of this encounter Visit Diagnoses Diagnosis Hx of dysplasia of cervix, low grade (VALENTINO 1) Mild dysplasia of cervix Family history of uterine cancer Family history of malignant neoplasm of genital organ, other documented in this encounter Care Teams Revolving Field Assembler Relationship Specialty Start Date End Date Luis E Narayan MD [facility] DR LILI AZEVEDO-[place] [address] PCP - General Family Medicine 03/26/19 01/19/22 documented as of this encounter
--- OUTSIDE RECORDS SUMMARY | 2024-04-15 15:58 | XMS_ITS | Encounter Summary ---
Author Organization [facility] [address] Care Team Providers Care Seat Joiner Chainstitch Name Role Phone Luis E Narayan MD Primary Care Provider Encounter Details Date Type Department Care Team (Late st Contact Info) Description 02/19/2020 Telephone [address] Medicine at [facility] [address] [place] [address] Sofia Lorenzo Social History Tobacco Use Types [...] PM EDT Sent a quick fax to [facility] [phone] requesting records * Telephone Encounter - Medhat Garcia - 02/21/2020 1:41 PM EDT Pt states she use to go to [facility] * Telephone Encounter - Sofia Lorenzo [...] can upload them to her chart through [facility] or if she knows the name of the provider so that records can be requested? Thanks -Rachel documented in this encounter Plan of Treatment Upcoming Encounters Date Type Department Care Team (Late st Contact Info) Description 05/01/2024 11:20 AM EDT Appointment Mammography/[place] [address] Rodney Padilla MD 05/01/2024 1:45 PM EDT Office Visit [place] [address] Juanpablo Hernandez MD [facility] DR [place] [address] 05/23/2024 2:45 PM EST Clinical Support Family Medicine at [facility] [address] [place] [address] Julia Low, [facility] 01/30/2025 1:30 PM EDT Laboratory Appointment Lab at [facility] [place]ematology Oncology [address] [place] [address] 01/30/2025 3:[address] [place] [address]-1000 Arturo Cordero MD [facility] HEMATOLOGY [place] [address] 01/30/2025 4:15 PM EDT Office Visit Hematology [place] [address] Arturo Cordero MD [facility] HEMATOLOGY [place] [address] documented as of this encounter Visit Diagnoses Not on filedocumented in this encounter Care Teams Seat Joiner Chainstitch Relationship Specialty Start Date End Date Luis E Narayan MD [facility] [address]-[place] [address] PCP - General Family Medicine 03/26/19 01/19/22 documented as of this encounter
--- OUTSIDE RECORDS SUMMARY | 2024-04-15 15:58 | XMS_ITS | Encounter Summary ---
Author Organization [facility] Address [facility] [place] [address] Care Team Providers Care Legal Activity Adjudicator Name Role Phone Luis E Narayan MD Primary Care Provider [phone]- [phone] Reason for Visit * Reason Comments Follow-up Encounter Details Date Type Department Care Team (Latest Contact Info) Description 08/05/2019 10:20 AM EST Office Visit Family Medicine at [facility] [address] [place] [address] Inocencia Grigsby MD [facility] [place] [address] Bipolar affective disorder in remission; Balance problem; [...] 05/01/2024 11:20 AM EDT Appointment Mammography/[place] [address] Rodney Padilla MD 05/01/2024 1:45 PM EDT Office [place] [address]1000 Juanpablo Hernandez MD [facility] [place] [place] [address] 05/23/2024 2:45 PM EST Clinical Support Family Medicine at [place] [address] [place] [address] Julia Low, [facility] 01/30/2025 1:30 PM EDT Laboratory Appointment Lab at [facility] [place]ology Oncology [address] [facility] [address] 01/30/2025 3:[address] [place] [address]1000 Arturo Cordero MD [facility] DR [place] [address] 01/30/2025 4:15 PM EDT Office Visit Hematology [place] [address]1000 Arturo Cordero MD [facility] DR [place] [address] documented as of this encounter Visit Diagnoses Diagnosis Bipolar affective disorder in remission Balance problem Other symptoms involving nervous and musculoskeletal systems Cognitive changes Other signs and symptoms involving cognition Cutaneous hypersensitivity Contact dermatitis and other eczema, due to unspecified cause documented in this encounter Care Teams Legal Activity Adjudicator Relationship Specialty Start Date End Date Luis E Narayan MD [facility] [address] [place] [address] PCP - General Family Medicine 03/26/19 01/19/22 documented as of this encounter
--- OUTSIDE RECORDS SUMMARY | 2024-04-15 15:58 | XMS_ITS | Encounter Summary ---
[place] [address] Care Team Providers Care Home Inspector Name Role Phone Luis E Narayan MD Primary Care Provider Reason for Visit * Auth/Cert Specialty Diagnoses / Procedures Referred By Gonzalez kumari Referred To Contact Diagnoses Pigmented large conjunctival lesion Procedures PRO EXCIS CORNEA LESN EXCISION OF LESION, CORNEA, EXCEPT PTERYGIUM (WRVU 7.5) Referral ID Status Reason Start Date Expiration Date Visits Re quested Visits Authorized [id number] 1 1 Encounter Details Date Type Department Care Team (Latest Contact Info) Description 05/14/2020 10:53 AM EST - 05/14/2020 1:25 PM EST Hospital Encounter [place] [address] Mert Hernandez MD [facility] [place] [address] Discharge Disposition: Home Social History Tobacco Use [...] surgery Mert Hernandez MD Section of ophthalmology [facility] [phone] - Keep your eye patched, shielded, clean and dry overnight. The patch will be removed during your follow up visit with Dr. Hernandez tomorrow. - The surgery center nurses should confirm time of your follow up appointment for tomorrow with . This appointment will be at the Eye Clinic in the main building at [facility]. - Mild discomfort is normal, but if you have any severe eye pain or bleeding call [phone] and ask to speak to the eye doctor information consultant. - Call your Primary Care Doctor or [...] 08/05/2019 06/14/2021 fluticasone propionate (FLONASE) 50 mcg/actuation Lolita, Suspension 1 spray by Each Nare route [...] patient was questioned regarding travel outside of [place] states, fever, cough, SOB or other illness [...] again, temperature will be taken, patient and caregiver/sanitation truck driver will be given a mask to wear the entire time they are in the [facility] building. * Grecia Lamb RN - 05/11/2020 9:20 AM EST During this call the patient was questioned regarding travel outside of [facility], fever, cough, SOB or other illness [...] again, temperature will be taken, patient and caregiver/sanitation truck driver will be given a mask [...] Hernandez MD - 05/14/2020 1:14 PM EST [facility] Operative Note Patient Name: Alize Gramajo : [id number] MR#: [id number] Case Date: 05/14/2020 Surgeon: Surgeon(s) and Role: [...] 2 mL Surgical Staff/Assistants: Mert Hernandez M.D. ([id number]) * Preoperative Diagnosis: Limbal conjunctival tumor, left [...] fresh instruments were obtained.The amniotic membrane donor [id number] from [employer] was applied to the scleral bed and [...] 05/01/2024 11:20 AM EDT Appointment Mammography/[place] [address]1000 Rodney Padilla MD 05/01/2024 1:45 PM EDT Office [place] [address] Mert Hernandez MD [facility] [place] [address] 05/23/2024 2:45 PM EST Clinical Support Family Medicine at [facility] [address] [place] [address] Julia Low, [facility] 01/30/2025 1:30 PM EDT Laboratory Appointment Lab at [facility] Hematology Oncology [address] [place] [address] 01/30/2025 3:[address] [place] [address]1000 Arturo Cordero MD [facility] DR [place]EMAT[place] [address] 01/30/2025 4:15 PM EDT Office Visit Hematology [place] [address] Arturo Cordero MD [facility] DR [place]AT[place] [address] documented as of this encounter Procedures Procedure [...] Place Amniotic Membrane Ocular Surface;Single Layer Sutured (96341) 05/14/2020 12:04 PM EST Pigmented large conjunctival lesion Destr Corneal Lesn, Cryo, Photo, Therm ([id number]) 05/14/2020 12:04 PM EST Pigmented large conjunctival lesion Excis Cornea Lesn ([id number]) 05/14/2020 12:04 PM EST Pigmented large conjunctival lesion EXCISION OF LESION, CORNEA, EXCEPT PTERYGIUM Routine 05/14/2020 10:58 AM EST documented in this encounter Results * Specimen to Pathology (05/14/2020 12:47 PM EST) AP Specimen 05/14/2020 12:4 7 PM EST 05/14/2020 12:[address] [facility] - 05/14/2020 12:47 PM EST Specimen requisition ordered. ??Separate Pathology report to follow Mert Hernandez MD PATHOLOGY/CYTOLOGY O ULISES Performing Organization Address [facility] Co de Phone Number [facility] [place] [place] [address] * Specimen to Pathology (05/14/2020 12:47 PM EST) AP Specimen 05/14/2020 12:4 7 PM EST 05/14/2020 12:[address] [facility] - 05/14/2020 12:47 PM EST Specimen requisition ordered. ??Separate Pathology report to follow Mert Hernandez MD PATHOLOGY/CYTOLOGY O ULISES Performing Organization Address [facility] [place] [address] * Specimen to Pathology (05/14/2020 12:47 PM EST) AP Specimen 05/14/2020 12:4 7 PM EST 05/14/2020 12:[address] [facility] - 05/14/2020 12:47 PM EST Specimen requisition ordered. ??Separate Pathology report to follow Mert Hernandez MD PATHOLOGY/CYTOLOGY O ULISES Performing Organization Address [facility]/ZIP Co de Phone Number [facility] [place] [address] * Specimen to Pathology (05/14/2020 12:47 PM EST) AP Specimen 05/14/2020 12:4 7 PM EST 05/14/2020 12:[address] [facility] - 05/14/2020 12:47 PM EST Specimen requisition ordered. ??Separate Pathology report to follow Mert Hernandez MD PATHOLOGY/CYTOLOGY O ULISES Performing Organization Address [facility] Co de Phone Number [facility] [place] [address] * Solid Tumor NGS Panel (05/14/2020 12:40 PM EST) Tissue specimen (specimen) 05/14/2020 12:40 PM EST 06/01/2020 11:57 AM EST Narrative Resulting Agency Comment Spec In Lab Mert Hernandez MD PATHOLOGY/CYTOLOGY O ULISES Performing Organization Address [facility] Co de Phone Number [facility] [place] [address] * Surgical Pathology Report (05/14/2020 12:40 PM EST) Final Diagnosis [id number] ? Location: [facility] The signing pathologist has [...] PhD, Allen Verified: ??05/20/2020 ?Dermatopathologist Performed at: ??-[facility] Dept. of Pathology, [place], [place] DISCUSSION A( Left eye, conjunctiva excision) [...] labeled D1. ??mayra 05/20/2020 3:[address] [facility] SPECIMEN FROM SKIN / Unknown 05/14/2020 12:40 PM EST 05/14/2020 12:40 PM EST SPECIMEN FROM SKIN / Unknown 05/14/2020 12:40 PM EST 05/14/2020 12:40 PM EST SPECIMEN FROM SKIN / Unknown 05/14/2020 12:40 PM EST 05/14/2020 12:40 PM EST SPECIMEN FROM SKIN / Unknown 05/14/2020 12:40 PM EST 05/14/2020 12:40 PM EST Mert Hernandez MD PATHOLOGY/CYTOLOGY O DENISEERACELY [facility] [place] [address] documented in this encounter Visit Diagnoses Not [...] on Carolee 05/14/20 at 1214, Until Carolee 11 at 1534, Intra-Operative (Intra-Procedure), Routine 1214 (Given - Provid er: Mert Hernandez MD - Comment: on surgical field for use as needed) BUpivacaine (PF) (MARCAINE) 0.75 % (7.5 mg/mL) injection (CANCELED) ONCE PRN, Starting on Carolee 1120 at 1216, Until Acrolee 11 at 1534, Intra-Operative (Intra-Procedure), Routine 1216 (Given - Provid er: Mert Hernandez MD - Comment: 0.75% Lidocaine plain mixed 1:1 with 2% Lidocaine with epi 1:200,000. 2 ml total mixture given at this time) ceFAZolin (Ancef) injection (CANCELED) ONCE PRN, Starting on Carolee 11 at 1308, Until Carolee 11 at 1534, [...] time) documented in this encounter Care Teams Home Inspector Relationship Specialty Start Date End Date Luis E Narayan MD [facility] [address] LILI [place] [address] PCP - General Family Medicine 03/26/19 01/19/22 documented as of this encounter
--- OUTSIDE RECORDS SUMMARY | 2024-04-15 15:58 | XMS_ITS | Encounter Summary ---
Author Organization [facility] [place] [address] Care Team Providers Care Oil Furnace Installer Name Role Phone Luis E Narayan MD Primary Care Provider [phone]- [phone] Reason for Visit * Consultation (Routine) - Closed Specialty Diagnoses / Procedures Referred By Gonzalez kumari Referred To Contact Ophthalmology Diagnoses amyloid pterygium os Moiz Ontiveros, OD [address] [place] [address] Juanpablo Hernandez MD [facility] [place] [address] Referral ID Status Reason Start Date Expiration Date V isits Requested Visits Authorized [id number] Closed Consult, Test & Treat PCP Updated and/or Approved 06/13/2019 06/12/2020 1 1 Encounter Details Date Type Department Care Team (Latest Contact Info) Description 03/31/2020 10:00 AM EDT Office [place] [address] Juanpablo Hernandez MD [facility] OPHTHALMOLOGY [place], [place] 0[address] Diabetic polyneuropathy associated with type 2 diabetes [...] 05/01/2024 11:20 AM EDT Appointment Mammography/DXA at [place] [phone] Rodney Padilla MD 05/01/2024 1:45 PM EDT Office Visit Ophthalmology at [place] [phone] Juanpablo Hernandez MD [facility] [place] [place] [address] 05/23/2024 2:45 PM EST Clinical Support Family Medicine at [facility] [address] [place] [address] Julia Low, [facility] 01/30/2025 1:30 PM EDT Laboratory Appointment Lab at [facility] Hematology Oncology [address] [place] [address] 01/30/2025 3:[address] [place] [address] Arturo Cordero MD [facility] [address] [place] [address] 01/30/2025 4:15 PM EDT Office Visit Hematology and Oncology at [facility] [place] [address] [place] [address] Arturo Cordero MD [facility] [place] [address] documented as of this encounter Procedures Procedure [...] left documented in this encounter Care Teams Oil Furnace Installer Relationship Specialty Start Date End Date Luis E Narayan MD [facility] [address] [place] [address] PCP - General Family Medicine 03/26/19 01/19/22 documented as of this encounter
--- OUTSIDE RECORDS SUMMARY | 2024-04-15 15:58 | XMS_ITS | Encounter Summary ---
Author Organization [facility] Address [facility] [place] [address] Care Team Providers Care [employer] Combat Skills Name Role Phone Luis E Narayan MD Primary Care Provider [phone]- [phone] Reason for Visit * Reason Onset Date Comments Request For Record 02/28/2020 [facility] Encounter Details Date Type Department Care Team (Late Contact Info) Description 02/28/2020 Telephone Internal Medicine at [facility] [address] [place] [address] Denisse Hunter CCMA Request For Record ([facility]) Social History Tobacco Use Types Packs/Day Years [...] 05/01/2024 11:20 AM EDT Appointment Mammography/[place] [address] Rodney Padilla MD 05/01/2024 1:45 PM EDT Office Visit Ophthalmology at [place] [phone] Juanpablo Hernandez MD [facility] [place] [address] 05/23/2024 2:45 PM EST Clinical Support Family Medicine at [place] [address] [place] [address] Julia Low, [facility] 01/30/2025 1:30 PM EDT Laboratory Appointment Lab at [facility] Hematology Oncology [address] [place] [address] 01/30/2025 3:[address] [place] [address] Arturo Cordero MD [facility] [place] [address] 01/30/2025 4:15 PM EDT Office Visit Hematology [place] [address] Arturo Cordero MD [facility] [place] [address] documented as of this encounter Visit Diagnoses Not on filedocumented in this encounter Care Teams [employer] Combat Skills Relationship Specialty Start Date End Date Luis E Narayan MD [facility] DR [place] [address] PCP - General Family Medicine 03/26/19 01/19/22 documented as of this encounter
--- OUTSIDE RECORDS SUMMARY | 2024-04-15 15:58 | XMS_ITS | Encounter Summary ---
Author Organization [facility] [place] [address] Care Team Providers Care Supplier Diversity Director Name Role Phone Luis E Narayan MD Primary Care Provider Reason for Visit * Reason Onset Date Comments Appointment 12/03/2019 Encounter Details Date Type Department Care Team (Late st Contact Info) Description 12/03/2019 Telephone Family Medicine at [facility] [address] [place] [phone] Idalmis Bang Appointment Social History Tobacco Use [...] 11:20 AM EDT Appointment Mammography/[place] [phone] Rodney Padilla MD 05/01/2024 1:45 PM EDT Office [place] [phone] Juanpablo Hernandez MD [facility] [place] [address] 05/23/2024 2:45 PM EST Clinical Support Family Medicine at [facility] [address] [place] [address] Julia Low, [facility] 01/30/2025 1:30 PM EDT Laboratory Appointment Lab at [facility] [place] [address] [place] [address] 01/30/2025 3:[address] [place] [phone] Arturo Cordero MD [facility] DR HEMATOLOGY [place] [address] 01/30/2025 4:15 PM EDT Office Visit Hematology [place] [address] Arturo Cordero MD [facility] DR HEMATOLOGY [place] [address] documented as of this encounter Visit Diagnoses Not on filedocumented in this encounter Care Teams Supplier Diversity Director Relationship Specialty Start Date End Date Luis E Narayan MD [facility] DR LILI [facility] [address] PCP - General Family Medicine 03/26/19 01/19/22 documented as of this encounter
--- OUTSIDE RECORDS SUMMARY | 2024-04-15 15:58 | XMS_ITS | Encounter Summary ---
Author Organization [facility] [place] [address] Care Team Providers Care Polisher And Buffer Name Role Phone Luis E Narayan MD Primary Care Provider Encounter Details Date Type Department Care Team (Late st Contact Info) Description 10/23/2019 [place] [address] Amy Aguiar MD [facility] [place] [address] Social History Tobacco Use Types Packs/Day Years [...] 05/01/2024 11:20 AM EDT Appointment Mammography/DXA at [place] [phone] Rodney Padilla MD 05/01/2024 1:45 PM EDT Office Visit Ophthalmology at [place] [phone] Juanpablo Hernandez MD [facility] [place] [address] 05/23/2024 2:45 PM EST Clinical Support Family Medicine at [address] [address] Julia Low, [facility] 01/30/2025 1:30 PM EDT Laboratory Appointment Lab at [facility] [place] On[place] [address] [place] [address] 01/30/2025 3:[address] [place] [address] Arturo Cordero MD [facility] DR HEMATOLOGY [place] [address] 01/30/2025 4:15 PM EDT Office Visit Hematology [place] [address] Arturo Cordero MD [facility] DR [place] [address] documented as of this encounter Visit Diagnoses Not on filedocumented in this encounter Care Teams Polisher And Buffer Relationship Specialty Start Date End Date Luis E Narayan MD [facility] [place] [address] PCP - General Family Medicine 03/26/19 01/19/22 documented as of this encounter
--- OUTSIDE RECORDS SUMMARY | 2024-04-15 15:58 | XMS_ITS | Encounter Summary ---
Author Organization [facility] [place] [address] Care Team Providers Care Spring Upholsterer Name Role Phone Luis E Narayan MD Primary Care Provider [phone]- [phone] Reason for Referral * Psychiatric (Routine) - Specialty Diagnoses / Procedures Referred By Gonzalez kumari Referred To Contact Neuropsychology Diagnoses Cognitive and behavioral changes Amy Aguiar MD [facility] [place] [address] Referral ID Status Reason Start Date Expiration Date V isits Requested Visits Authorized [id number] Consult, Test & Treat 08/05/2019 02/01/2020 1 1 Encounter Details Date Type Department Care Team (Late st Contact Info) Description 08/05/2019 1:45 PM EST Office [place] [address] Alber Spann MD [facility] [place] [address] Amy Aguiar MD [facility] [place] [address] Cognitive and behavioral changes Social History Tobacco [...] sentences. Patient states she was taken to [facility] and it was initially thought that she is having a clot in her body and thus underwent echocardiograms, ultrasounds of her lower extremities and all were negative. 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 Patient states she [facility] stop steroids and gave her breathing treatments. 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 She states her [...] uses inhalerswith good effect ??? Atherosclerosis of [place] coronary artery of [place] heart with angina pectoris 10/09/2007 History of [...] 27.41) performed by Avila Medina MD at [facility] Medications: Current Outpatient Medications on File Prior to Visit Medication Sig Dispense Refill ??? fluticasone propionate (FLONASE) 50 mcg/actuation Gary, Suspension 1 spray by Each Nare route [...] and lateral aspects of feet Vibration via [employer] tuning fork (1-8): reduced at big toes [...] Zana Aguiar MD Clinical Neurophysiology Fellow Pager: [phone] 08/05/2019 CC: Luis E Narayan MD, Luis [...] 05/01/2024 11:20 AM EDT Appointment Mammography/[place] [address] Rodney Padilla MD 05/01/2024 1:45 PM EDT Office Visit [place] [phone] Juanpablo Hernandez MD [facility] [place] [address] 05/23/2024 2:45 PM EST Clinical Support Family Medicine at [facility] [address] [place] [address] Julia Low, [facility] 01/30/2025 1:30 PM EDT Laboratory Appointment Lab at [facility] [place] Oncology [address] [place] [address] 01/30/2025 3:[address] [place] [phone] Arturo Cordero MD [facility] DR HEMATOLOGY [place] [address] 01/30/2025 4:15 PM EDT Office Visit Hematology [place] [phone] Arturo Cordero MD [facility] DR HEMATOLOGY [place] [address] Scheduled Referrals Name Type Priority Associated Diagnoses [...] PM EST) Paraneo Eval Interpretation SEE COMMENTS [facility] Comment: No informative autoantibodies were detected in the Paraneoplastic Evaluation. However, a negative result does not exclude neurological autoimmunity with or without associated neoplasia. Sensitivity and specificity of antibody testing are enhanced by testing both serum and CSF. Test Performed by: [place] [address] Rehab Therapist: Jose G Jefferson M.D. Ph.D.; CLIA# [id number] EDITA-1 (Anti-Neuronal Nuclear Ab, Type 1) (NOVEMBER) Negative <1:240 titer [facility] Comment: Test Performed by: [facility] [place] [address] Rehab Therapist: Jose G Jefferson M.D. Ph.D.; CLIA# [id number] EDITA-2 (Anti-Neuronal Nuclear Ab,Type 2) (NOVEMBER) Negative <1:240 titer [facility] Comment: ADDITIONAL INFORMATION This test was developed and its performance characteristics determined by [facility] in a manner consistent with CLIA requirements. This test has not been cleared or approved by the U.S. Food and Drug Administration. Test Performed by: [facility] [place] [address] Rehab Therapist: Jose G Jefferson M.D. Ph.D.; CLIA# [id number] EDITA-3 (Anti-Neuronal Nuclear Ab, Type 3) (NOVEMBER) Negative <1:240 titer [facility] Comment: ADDITIONAL INFORMATION This test was developed and its performance characteristics determined by [facility] in a manner consistent with CLIA requirements. This test has not been cleared or approved by the U.S. Food and Drug Administration. Test Performed by: [facility] [place] [address] Rehab Therapist: Jose G Jefferson M.D. Ph.D.; CLIA# [id number] AGNA-1 (Anti-Glial Nuclear Ab, Type 1) (NOVEMBER) Negative <1:240 titer [facility] Comment: ADDITIONAL INFORMATION This test was developed and its performance characteristics determined by [facility] in a manner consistent with CLIA requirements. This test has not been cleared or approved by the U.S. Food and Drug Administration. Test Performed by: [facility] [place] [address] Rehab Therapist: Jose G Jefferson M.D. Ph.D.; CLIA# [id number] INTERNAL MEDICINE DOCTOR-1 (Purkinje Cell Cytoplasmic Ab-Type 1) (NOVEMBER) Negative <1:240 titer [facility] Comment: ADDITIONAL INFORMATION This test was developed and its performance characteristics determined by [facility] in a manner consistent with CLIA requirements. This test has not been cleared or approved by the U.S. Food and Drug Administration. Test Performed by: [facility] [place] [address] Rehab Therapist: Jose G Jefferson M.D. Ph.D.; CLIA# [id number] INTERNAL MEDICINE DOCTOR-2 (Purkinje Cell Cytoplasmic Ab-Type 2) (NOVEMBER) Negative <1:240 titer [facility] Comment: ADDITIONAL INFORMATION This test was developed and its performance characteristics determined by [facility] in a manner consistent with CLIA requirements. This test has not been cleared or approved by the U.S. Food and Drug Administration. Test Performed by: [facility] [place] [address] Rehab Therapist: Jose G Jefferson M.D. Ph.D.; CLIA# [id number] INTERNAL MEDICINE DOCTOR-Type TR (Purkinje Cell Cytoplasmic Ab-Type Tr) (NOVEMBER) Negative <1:240 titer [facility] Comment: ADDITIONAL INFORMATION This test was developed and its performance characteristics determined by [facility] in a manner consistent with CLIA requirements. This test has not been cleared or approved by the U.S. Food and Drug Administration. Test Performed by: [facility] [place] [address] Rehab Therapist: Jose G Jefferson M.D. Ph.D.; CLIA# [id number] Amphiphysin Antibody (NOVEMBER) Negative <1:240 titer [facility] Comment: ADDITIONAL INFORMATION This test was developed and its performance characteristics determined by [facility] in a manner consistent with CLIA requirements. This test has not been cleared or approved by the U.S. Food and Drug Administration. Test Performed by: [facility] [place] [address] Rehab Therapist: Jose G Jefferson M.D. Ph.D.; CLIA# [id number] CRMP-5-IgG (NOVEMBER) Negative <1:240 titer [facility] Comment: ADDITIONAL INFORMATION This test was developed and its performance characteristics determined by [facility] in a manner consistent with CLIA requirements. This test has not been cleared or approved by the U.S. Food and Drug Administration. Test Performed by: [facility] [place] [address] Rehab Therapist: Jose G Jefferson M.D. Ph.D.; CLIA# [id number] Striated Muscle Ab Negative <1:120 titer [facility] Comment: ADDITIONAL INFORMATION This test was developed and its performance characteristics determined by [facility] in a manner consistent with CLIA requirements. This test has not been cleared or approved by the U.S. Food and Drug Administration. Test Performed by: [facility] [place] [address] Rehab Therapist: Jose G Jefferson M.D. Ph.D.; CLIA# [id number] P/Q-Type Ca Channel Ab (NOVEMBER) 0.00 <=0.02 nmol/L [facility] Comment: ADDITIONAL INFORMATION This test was developed and its performance characteristics determined by [facility] in a manner consistent with CLIA requirements. This test has not been cleared or approved by the U.S. Food and Drug Administration. Test Performed by: [facility] [place] [address] Rehab Therapist: Jose G Jefferson M.D. Ph.D.; CLIA# [id number] N-Type Ca Channel Ab 0.00 <=0.03 nmol/L [facility] Comment: ADDITIONAL INFORMATION This test was developed and its performance characteristics determined by [facility] in a manner consistent with CLIA requirements. This test has not been cleared or approved by the U.S. Food and Drug Administration. Test Performed by: [facility] [place] [address] Rehab Therapist: Jose G Jefferson M.D. Ph.D.; CLIA# [id number] AChR Gang Neuronal Ab 0.00 <=0.02 nmol/L [facility] Comment: ADDITIONAL INFORMATION This test was developed and its performance characteristics determined by [facility] in a manner consistent with CLIA requirements. This test has not been cleared or approved by the U.S. Food and Drug Administration. Test Performed by: [facility] [place] [address] Rehab Therapist: Jose G Jefferson M.D. Ph.D.; CLIA# [id number] Neuronal (V-G) K+ Channel Ab (NOVEMBER) 0.00 <=0.02 nmol/L [facility] Comment: ADDITIONAL INFORMATION This test was developed and its performance characteristics determined by [facility] in a manner consistent with CLIA requirements. This test has not been cleared or approved by the U.S. Food and Drug Administration. Test Performed by: [facility] - [address] [address] Rehab Therapist: Jose G Jefferson M.D. Ph.D.; CLIA# [id number] Blood specimen (specimen) Venous Draw / Unknown 08/05/2019 3:34 PM EST 08/12/2019 9:21 AM EST Narrative Resulting Agency Comment Spec In Lab Amy Aguiar MD LAB SEND OUT ORD ERABLES Performing Organization Address [facility] [[email or web address]] Co de Phone Number [facility] [place] [address] * Vitamin B6 (08/05/2019 3:34 PM EST) [facility] Vitamin B6 (NOVEMBER) 5 5 - 50 mcg/L [facility] Comment: ADDITIONAL INFORMATION This test was developed and its performance characteristics determined by [facility] in a manner consistent with CLIA requirements. This test has not been cleared or approved by the U.S. Food and Drug Administration. Test Performed by: [facility] [address] [place] [address] Rehab Therapist: Jose G Jefferson M.D. Ph.D.; CLIA# [id number] Blood specimen (specimen) 08/05/2019 3:34 PM EST 08/05/2019 4:07 PM EST Narrative Resulting Agency Comment Spec In Lab Alber Spann MD LAB SEND OUT ORD ERABLES Performing Organization Address City/[facility]/ZIP Co de Phone Number [facility] [place] [address] * Protein Electrophoresis, serum (08/05/2019 3:34 PM EST) Total Prot Electrophoresis 6.6 6.1 - 8.0 gm/dL [facility] Albumin Electrophoresis 4.42 3.60 - 6.00 gm/dL [facility] Alpha 1 Globulin 0.17 0.10 - 0.30 gm/dL [facility] Alpha 2 Globulin 0.67 0.40 - 0.90 gm/dL [facility] Beta Globulin 0.70 0.50 - 1.00 gm/dL [facility] Gamma Globulin 0.65 0.50 - 1.30 gm/dL [facility] M1 Band None Detected None Detected [facility] Blood specimen (specimen) 08/05/2019 3:34 PM EST 08/05/2019 3:40 PM EST Narrative Resulting Agency Comment Spec In Lab Alber Spann MD CHEMISTRY ORDERA BLES [facility] [place] [address] documented in this encounter Visit Diagnoses Diagnosis Cognitive and behavioral changes Other signs and symptoms involving cognition documented in this encounter Care Teams Spring Upholsterer Relationship Specialty Start Date End Date Luis E Narayan MD [facility] DR LILI WALKER-FAMILY MEDICINE [place] [phone] PCP - General Family Medicine 03/26/19 01/19/22 documented as of this encounter
--- OUTSIDE RECORDS SUMMARY | 2024-04-15 15:58 | XMS_ITS | Encounter Summary ---
Author Organization [facility] Address [facility] [place] [address] Care Team Providers Care Navy Airspace Officer Name Role Phone Luis E Narayan MD Primary Care Provider Reason for Visit * Reason Onset Date Comments Medication Refill 04/28/2020 Encounter Details Date Type Department Care Team (Late st Contact Info) Description 04/28/2020 Refill Family Medicine at [facility] [address] [place] [address] Bonny Emanuel MD [address] [place] [address] Social History Tobacco Use Types Packs/Day Years [...] 05/01/2024 11:20 AM EDT Appointment Mammography/[place] [address] Rodney Padilla MD 05/01/2024 1:45 PM EDT Office [place] [address] Juanpablo Hernandez MD [facility] [address] 05/23/2024 2:45 PM EST Clinical Support Family Medicine at [facility] [address] [place] [address] Julia Low, [facility] 01/30/2025 1:30 PM EDT Laboratory Appointment Lab at [facility] Hematology Oncology [address] [place] [address] 01/30/2025 3:[address] [place] [address] Arturo Cordero MD [facility] DR HEMAT[place]Y [place] [address] 01/30/2025 4:15 PM EDT Office Visit Hematology [place] [address] Arturo Cordero MD [facility] [place]AT[place]Y [place] [address] documented as of this encounter Visit Diagnoses Not on filedocumented in this encounter Care Teams Navy Airspace Officer Relationship Specialty Start Date End Date Luis E Narayan MD [facility] DR LIL[address] [place] [address] PCP - General Family Medicine 03/26/19 01/19/22 documented as of this encounter
--- OUTSIDE RECORDS SUMMARY | 2024-04-15 15:58 | XMS_ITS | Encounter Summary ---
[place] [address] Care Team Providers Care Clothing And Textiles Teacher Name Role Phone Luis E Narayan MD Primary Care Provider [phone]- [phone] Encounter Details Date Type Department Care Team (Latest Contact Info) Description 01/13/2020 10:00 AM EDT Laboratory Appointment Lab [address] [place] [address] Type 2 diabetes mellitus without long-term current [...] 05/01/2024 11:20 AM EDT Appointment Mammography/[place] [address] Rodney Padilla MD 05/01/2024 1:45 PM EDT Office [place] [address] Juanpablo Hernandez MD [facility] [place] [address] 05/23/2024 2:45 PM EST Clinical Support Family Medicine at [facility] [address] [place] [address] Julia Low RPH 01/30/2025 1:30 PM EDT Laboratory Appointment Lab at [facility] [place]ematology Oncology [address] [place] [address] 01/30/2025 3:[address] [place] [address] Arturo Cordero MD [facility] DR [place] [address] 01/30/2025 4:15 PM EDT Office Visit Hematology [place] [address] Arturo Cordero MD [facility] DR [place] [address] documented as of this encounter Procedures Procedure [...] Hemoglobin A1c 6.9(H) 4.3 - 5.6 % [facility] [...] Mellitus, Diabetes Care 2013; 36: Suppl. 1, S67-68 Estimated Average Glucose 151 mg/dL [facility] Comment: eAG equivalents [...] into estimated average glucose values. ??Diabetes Care 2008:31(8):8497-3445. Blood specimen (specimen) 01/13/2020 10:13 AM EDT 01/13/2020 10:22 AM EDT Narrative Resulting Agency Comment Spec In Lab Luis E Narayan MD CHEMISTRY ORDERABLE S [facility] [place] [address] * Comprehensive metabolic panel (non-fasting) (01/13/2020 10:13 AM EDT) Glucose 156 65 - 199 mg/dL [facility] Comment:Diabetes: >=200 mg/d L plus symptoms Blood Urea Nitrogen 17 8 - 18 mg/dL [facility] Creatinine 0.86 0.70 - 1.20 mg/dL [facility] [...] 107 mmol/L [facility] Carbon Dioxide 24 22 - 31 mmol/L [facility] Anion Gap 12 5 - 15 mmol/L [facility] Calcium 9.4 8.5 - 10.5 mg/dL [facility] Protein, Total 6.7 6.1 - 8.0 gm/dL [facility] Albumin 4.2 3.2 - 5.2 gm/dL [facility] Aspartate Aminotransferase 18 0 - 30 unit/L [facility] Alanine Aminotransferase 25 0 - 30 unit/L [facility] Alkaline Phosphatase 88 35 - 105 unit/L [facility] Bilirubin, Total 0.3 0.2 - 1.3 mg/dL [facility] Est Glomerular Filtration Rate 73 >=60 mL/min/1. 73 m?? [facility] Comment: The eGFR was calculated using the CKD-EPI equation. As with all creatinine based estimates of kidney function, eGFR values calculated with the CKD-EPI equation are not accurate in patients with acute kidney failure, extremes of body mass or the acutely ill. http://[employer] eGFR 85 >=60 mL/min/1. 73 m?? [facility] Comment: The eGFR was calculated using the CKD-EPI equation. As with all creatinine based estimates of kidney function, eGFR values calculated with the CKD-EPI equation are not accurate in patients with acute kidney failure, extremes of body mass or the acutely ill. http://[employer] Blood specimen (specimen) 01/13/2020 10:13 AM EDT 01/13/2020 10:22 AM EDT Narrative Resulting Agency Comment Spec In Lab Luis E Narayan MD CHEMISTRY ORDERABLE S [facility] [place] [address] documented in this encounter Visit Diagnoses Diagnosis Type 2 diabetes mellitus without long-term current use of insulin Renal cancer, left documented in this encounter Care Teams Clothing And Textiles Teacher Relationship Specialty Start Date End Date Luis E Narayan MD [facility] [address] [place] [address] PCP - General Family Medicine 03/26/19 01/19/22 documented as of this encounter
--- OUTSIDE RECORDS SUMMARY | 2024-04-15 15:58 | XMS_ITS | Encounter Summary ---
Author Organization [facility] Address [facility] [place] [address] Care Team Providers Care Employment Counselor Name Role Phone Luis E Narayan MD Primary Care Provider [phone] Encounter Details Date Type Department Care Team (Late st Contact Info) Description 11/06/2019 11:30 AM EDT TH Visit (TeleHealth) Sleep Center at [facility] [address] [place] [address] Jhonny Morataya MD [facility] [place] [address] TITO (obstructive sleep apnea); Chronic insomnia; RLS [...] drive. If you get sleepy while driving taffy puller and nap. You may resume driving once you feel alert. 11) Read No More Sleepless Nights by Mack Heaton PhD. 12) Dr Morataya will send a prescription to [facility] for a pressure increase. If you have problems with the pressure increase please let my office know at [phone] 13) Not getting enough sleep may lead [...] clinic office visit. yes Patient Location: At [facility] patient is located in at time of this visit: [place] Chief Complaint: Daytime tiredness HPI: Ms. [...] no change in treatment ?? Re-evaluation in [facility] 05/09/19 On CPAP still and [...] regularly in the past. Questionnaires: Patient-reported scores: [facility] 05/09/2019 [place] [facility] 10 (High Risk) Insomnia Severity Index - [facility] 05/07/2019 05/09/2019 [place] [facility] 7 10 (High Risk) Insomnia Severity Index 22 (Severe insomnia) - Daytime Symptoms: Naps: 2 x per week for up to 3 hrs Involuntary Dozing: no Driving: The patient does not report difficulty with sleepiness and driving anymore. [facility] sleep[facility] driving. [...] Diagnosis Code ??? Coronary artery disease involving [place] coronary artery of [place] heart with angina pectoris I25.119 ??? Altered [...] 0 ??? fluticasone propionate (FLONASE) 50 mcg/actuation [place], Suspension 1 spray by Each Nare route [...] AM EDT Appointment Mammography/DXA at [place] [phone] Rodney Padilla MD 05/01/2024 1:45 PM EDT Office Visit Ophthalmology at [place] [phone] Juanpablo Hernandez MD [facility] [place] [address] 05/23/2024 2:45 PM EST Clinical Support Family Medicine at [address] [phone] Julia Low [facility] 01/30/2025 1:30 PM EDT Laboratory Appointment Lab at [facility] Hematology Oncology [address] [place] [phone] 01/30/2025 3:[address] [place] [address] Arturo Cordero MD [facility] HEMATOLOGY [place] [address] 01/30/2025 4:15 PM EDT Office Visit Hematology [place] [phone] Arturo Cordero MD [facility] H[place]ATOLOG[place] [address] documented as of this encounter Visit Diagnoses Diagnosis TITO (obstructive sleep apnea) Obstructive sleep apnea (adult) (pediatric) Chronic insomnia Insomnia, unspecified RLS (restless legs syndrome) Restless legs syndrome (RLS) documented in this encounter Care Teams Employment Counselor Relationship Specialty Start Date End Date Luis E Narayan MD [facility] [address] [place] [address] PCP - General Family Medicine 03/26/19 01/19/22 documented as of this encounter
--- OUTSIDE RECORDS SUMMARY | 2024-04-15 15:58 | XMS_ITS | Encounter Summary ---
Author Organization [facility] Address [facility] [place] [address] Care Team Providers Care Senior Software Manager Name Role Phone Daryn Garrett MD Primary Care Provider Reason for Visit * Reason Onset Date Comments Medication Refill 12/24/2019 Encounter Details Date Type Department Care Team (Late st Contact Info) Description 12/24/2019 Refill Family Medicine at [facility] [address] [place] [address] Luis E Narayan MD [facility] DR LIL[address] [place] [address] Type 2 diabetes mellitus without long-term current [...] 05/01/2024 11:20 AM EDT Appointment Mammography/[place] [phone] Rodney Padilla MD 05/01/2024 1:45 PM EDT Office [place] [phone] Juanpablo Hernandez MD [facility] [place] [address] 05/23/2024 2:45 PM EST Clinical Support Family Medicine at [address] [phone] Julia Low, [facility] 01/30/2025 1:30 PM EDT Laboratory Appointment Lab at [facility] Hematology Oncology [address] [place] [address] 01/30/2025 3:[address] [place] [address] Arturo Cordero MD [facility] [place]ATOLOG[place] [address] 01/30/2025 4:15 PM EDT Office Visit Hematology [place] [phone] Arturo Cordero MD [facility] DR [place]AT[place] [address] documented as of this encounter Results * Comprehensive metabolic panel (non-fasting) (01/13/2020 10:13 AM EDT) [facility] Signature Glucose 156 65 - 199 mg/dL [facility] Comment:Diabetes: >=200 mg/d L plus symptoms Blood Urea Nitrogen 17 8 - 18 mg/dL [facility] Creatinine 0.86 0.70 - 1.20 mg/dL [facility] Sodium 141 135 - 145 mmol/L [facility] Potassium 4.3 3.5 - 5.0 mmol/L [facility] Comment: Please note: ??Patients with WBC >100,000 may have falsely elevated Potassium levels. ??For accurate Potassium quantification in these patients send serum separator tube (gold top) for subsequent determinations. ??Contact the Clinical Chemistry Laboratory if there are any questions. Chloride 105 98 - 107 mmol/L [facility] Carbon Dioxide 24 22 - 31 mmol/L [facility] Anion Gap 12 5 - 15 mmol/L [facility] Calcium 9.4 8.5 - 10.5 mg/dL [facility] Protein, Total 6.7 6.1 - 8.0 gm/dL [facility] Albumin 4.2 3.2 - 5.2 gm/dL [facility] Aspartate Aminotransferase 18 0 - 30 unit/L [facility] Alanine Aminotransferase 25 0 - 30 unit/L [facility] Alkaline Phosphatase 88 35 - 105 unit/L [facility] Bilirubin, Total 0.3 0.2 - 1.3 mg/dL [facility] Est Glomerular Filtration Rate 73 >=60 mL/min/1. 73 m?? [facility] Comment: The eGFR was calculated using the CKD-EPI equation. As with all creatinine based estimates of kidney function, eGFR values calculated with the CKD-EPI equation are not accurate in patients with acute kidney failure, extremes of body mass or the acutely ill. http://[employer]/DHMCnkf eGFR 85 >=60 mL/min/1. 73 m?? [facility] Comment: The eGFR was calculated using the CKD-EPI equation. As with all creatinine based estimates of kidney function, eGFR values calculated with the CKD-EPI equation are not accurate in patients with acute kidney failure, extremes of body mass or the acutely ill. http://[employer]/DHMCnkf Blood specimen (specimen) 01/13/2020 10:13 AM EDT 01/13/2020 10:22 AM EDT Narrative Resulting Agency Comment Spec In Lab Luis E Narayan MD CHEMISTRY ORDERABLE S [facility] [place] [address] * (ABNORMAL) Hemoglobin A1c (01/13/2020 10:13 AM EDT) Hemoglobin A1c 6.9(H) 4.3 - 5.6 % [facility] Comment: Reference Range: 4.3 [...] Mellitus, Diabetes Care 2013; 36: Suppl. 1, S57-96 Estimated Average Glucose 151 mg/dL [facility] Comment: eAG equivalents for [...] into estimated average glucose values. ??Diabetes Care 2008:31(8):9860-4137. Blood specimen (specimen) 01/13/2020 10:13 AM EDT 01/13/2020 10:22 AM EDT Narrative Resulting Agency Comment Spec In Lab Luis E Narayan MD CHEMISTRY ORDERABLE S [facility] [place] [address] documented in this encounter Visit Diagnoses Diagnosis Type 2 diabetes mellitus without long-term current use of insulin documented in this encounter Care Teams Senior Software Manager Relationship Specialty Start Date End Date Daryn Garrett MD [facility] DR LILI [place] [address] PCP - General 04/10/24 documented as of this encounter
--- OUTSIDE RECORDS SUMMARY | 2024-04-15 15:58 | XMS_ITS | Encounter Summary ---
Author Organization [facility] Address [facility] [place] [address] Care Team Providers Care Club Steward Name Role Phone Luis E Narayan MD Primary Care Provider Encounter Details Date Type Department Care Team (Late st Contact Info) Description 01/13/2020 1:00 PM EDT [place] [address] Avila Medina MD [facility] [place] [address] Malignant neoplasm of kidney, unspecified laterality; Adrenal [...] Left robot assited partial nephrectomy for a [id number] Grade 3 clear cell cancer. All surgical [...] Diagnosis Code ??? Coronary artery disease involving [place] coronary artery of [place] heart with angina pectoris I25.119 ??? Altered [...] adenoma unchanged from prior imaging 03/19/2019. Imp: [id number] Grade 3 Clear Cell renal cancer sp [...] 05/01/2024 11:20 AM EDT Appointment Mammography/[place] [address] Rodney Padilla MD 05/01/2024 1:45 PM EDT Office [place] [address] Juanpablo Hernandez MD [facility] [place] [address] 05/23/2024 2:45 PM EST Clinical Support Family Medicine at [place] [address] [place] [phone] Julia Low, [facility] 01/30/2025 1:30 PM EDT Laboratory Appointment Lab at [facility] Hematology Oncology [address] [place] [address] 01/30/2025 3:[address] [place] [address] Arturo Cordero MD [facility] DR HEMATOLOGY [place] [address] 01/30/2025 4:15 PM EDT Office Visit Hematology [place] [phone] Arturo Cordero MD [facility] DR HEMATOLOG[place] [address] documented as of this encounter Visit Diagnoses Diagnosis Malignant neoplasm of kidney, unspecified laterality Adrenal mass Unspecified disorder of adrenal glands OAB (overactive bladder) Hypertonicity of bladder Anxiety Anxiety state, unspecified documented in this encounter Care Teams Club Steward Relationship Specialty Start Date End Date Luis E Narayan MD [facility] DR LIL[address] AZEV[address] [address] PCP - General Family Medicine 03/26/19 01/19/22 documented as of this encounter
--- OUTSIDE RECORDS SUMMARY | 2024-04-15 15:58 | XMS_ITS | Encounter Summary ---
Author Organization [facility] Address [facility] [place] [address] Care Team Providers Care Senior Test Analyst Name Role Phone Luis E Narayan MD Primary Care Provider Reason for Visit * Reason Comments Pre-op Exam 05/14/20 @ [facility]. Ezra clayton - bx of LT eye ?Cancer - when should she stop asprin & plavix prior to surgery Encounter Details Date Type Department Care Team (Late st Contact Info) Description 05/06/2020 2:20 PM EDT Office Visit Family Medicine at [facility] [address] [place] [phone] Rebecca Mcgill APRN [facility] [place] [address] Pre-op examination; Preventative health care Social History [...] this encounter Progress Notes * Rebecca Mcgill, CREPE LAMINATOR OPERATOR - 05/06/2020 2:20 PM EDT cc: Alize [...] Diagnosis Code ??? Coronary artery disease involving [place] coronary artery of [place] heart with angina pectoris I25.119 ??? 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 [address] [place] [phone] Julia Low [facility] 01/30/2025 1:30 PM EDT Laboratory Appointment Lab at [facility] Hematology Oncology [address] [place] [address] 01/30/2025 3:[address] [place] [address] Arturo Cordero MD [facility] DR HEMATOLOGY [place] [address] 01/30/2025 4:15 PM EDT Office Visit Hematology [place] [address] Arturo Cordero MD [facility] HEMATOLOGY [place] [address] documented as of this encounter Visit Diagnoses Diagnosis Pre-op examination Preoperative examination, unspecified Preventative health care Routine general medical examination at a health care facility documented in this encounter Care Teams Senior Test Analyst Relationship Specialty Start Date End Date Luis E Narayan MD [facility] [address]-[place] [address] PCP - General Family Medicine 03/26/19 01/19/22 documented as of this encounter
--- OUTSIDE RECORDS SUMMARY | 2024-04-15 15:58 | XMS_ITS | Encounter Summary ---
[place] [address] Care Team Providers Care Director Of Special Events Name Role Phone Luis E Narayan MD Primary Care Provider [phone] Encounter Details Date Type Department Care Team (Late st Contact Info) Description 02/04/2020 Telephone Sleep Center at [facility] [address] [place] [phone] Christine Aponte Social History Tobacco Use Types [...] 05/01/2024 11:20 AM EDT Appointment Mammography/[place] [address] Rodney Padilla MD 05/01/2024 1:45 PM EDT Office [place] [address] Juanpablo Hernandez MD [facility] [place] [address] 05/23/2024 2:45 PM [facility] Clinical Support Family Medicine at [facility] [address] [place] [phone] Julia Low, [facility] 01/30/2025 1:30 PM EDT Laboratory Appointment Lab at [facility] Hematology Oncology [address] [place] [address] 01/30/2025 3:[address] [place] [address] Arturo Cordero MD [facility] [place] [address] 01/30/2025 4:15 PM EDT Office Visit Hematology [place] [address] Arturo Cordero MD [facility] [place] [address] documented as of this encounter Visit Diagnoses Not on filedocumented in this encounter Care Teams Director Of Special Events Relationship Specialty Start Date End Date Luis E Narayan MD [facility] DR [address] [place] [address] PCP - General Family Medicine 03/26/19 01/19/22 documented as of this encounter
--- OUTSIDE RECORDS SUMMARY | 2024-04-15 15:58 | XMS_ITS | Encounter Summary ---
Author Organization [facility] Address [facility] [place] [address] Care Team Providers Care Power Builder Developer Name Role Phone Daryn Garrett MD Primary Care Provider Reason for Visit * Reason Onset Date Comments Medication Refill 08/01/2019 Encounter Details Date Type Department Care Team (Late st Contact Info) Description 08/01/2019 Refill Family Medicine at [facility] [address] [place] [address] Bonny Emanuel MD [address] [place] [address] Social History Tobacco Use Types Packs/Day Years [...] 05/01/2024 11:20 AM EDT Appointment Mammography/[place] [address] Rodney Padilla MD 05/01/2024 1:45 PM EDT Office [place] [address] Juanpablo Hernandez MD [facility] [place] [address] 05/23/2024 2:45 PM EST Clinical Support Family Medicine at [facility] [address] [place] [phone] Julia Low, [facility] 01/30/2025 1:30 PM EDT Laboratory Appointment Lab at [facility] Hematology Oncology [address] [place] [address] 01/30/2025 3:[address] [place] [address] Arturo Cordero MD [facility] [place] [address] 01/30/2025 4:15 PM EDT Office Visit Hematology [place] [address] Arturo Cordero MD [facility] [place] [address] documented as of this encounter Visit Diagnoses Not on filedocumented in this encounter Care Teams Power Builder Developer Relationship Specialty Start Date End Date Daryn Garrett MD [facility] DR [address]IL[address] [place] [address] PCP - General 04/10/24 documented as of this encounter
--- OUTSIDE RECORDS SUMMARY | 2024-04-15 15:58 | XMS_ITS | Encounter Summary ---
Author Organization [facility] [place] [address] Care Team Providers Care Email Marketer Name Role Phone Luis E Narayan MD Primary Care Provider Reason for Visit * Reason Comments Follow-up Encounter Details Date Type Department Care Team (Late st Contact Info) Description 12/23/2019 8:15 AM EDT Office [place] [address] Maurilio Spann MD [facility] [place] [address] Amy Aguiar MD [facility] [place] [address] Cognitive and behavioral changes Social History Tobacco [...] sentences. Patient states she was taken to [facility] and it was initially thought that she is having a clot in her body and thus underwent echocardiograms, ultrasounds of her lower extremities and all were negative. 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 Patient states she [facility] stop steroids and gave her breathing treatments. 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 She states her [...] uses inhalerswith good effect ??? Atherosclerosis of [place] coronary artery of [place] heart with angina pectoris 10/09/2007 History of [...] 27.41) performed by Avila Medina MD at [facility] Medications: Current Outpatient Medications [...] 0 ??? fluticasone propionate (FLONASE) 50 mcg/actuation [place], Suspension 1 spray by Each Nare [...] and lateral aspects of feet Vibration via App Partner tuning fork (1-8): reduced at big toes [...] yet to undergo neuro psych testing. Amy Agiuar MD Clinical Neurophysiology Fellow Pager: [phone] 12/23/2019 documented in this encounter Plan of Treatment Upcoming Encounters Date Type Department Care Team (Late st Contact Info) Description 05/01/2024 11:20 AM EDT Appointment Mammography/DXA at [place] [phone] Rodney Padilla MD 05/01/2024 1:45 PM EDT Office [place] [address] Juanpablo Hernandez MD [facility] OPHTHALMOLOGY [place], [place] [phone] 05/23/2024 2:45 PM EST Clinical Support Family Medicine at [address] [address] Julia Low, [facility] 01/30/2025 1:30 PM EDT Laboratory Appointment Lab at [facility] Hematology Oncology [address] [place] [phone] 01/30/2025 3:[address] [place] [address] Arturo Cordero MD [facility] HEMATOLOGY [place] [address] 01/30/2025 4:15 PM EDT Office Visit Hematology [place] [address] Arturo Cordero MD [facility] HEMATOLOGY [place] [address] documented as of this encounter Visit Diagnoses Diagnosis Cognitive and behavioral changes Other signs and symptoms involving cognition documented in this encounter Care Teams Email Marketer Relationship Specialty Start Date End Date Luis E Narayan MD [facility] DR [place] [address] PCP - General Family Medicine 03/26/19 01/19/22 documented as of this encounter
--- OUTSIDE RECORDS SUMMARY | 2024-04-15 15:58 | XMS_ITS | Encounter Summary ---
Author Organization [facility] [place] [address] Care Team Providers Care Projection Camera Operator Name Role Phone Luis E Narayan MD Primary Care Provider Reason for Visit * Reason Onset Date Comments Bumped Appointment 11/19/2019 Encounter Details Date Type Department Care Team (Late st Contact Info) Description 11/19/2019 Telephone [place] [address] Juanpablo Hernandez MD [facility] [place] [address] Bumped Appointment Social History Tobacco Use Types [...] 05/01/2024 11:20 AM EDT Appointment Mammography/[place] [address] Rodney Padilla MD 05/01/2024 1:45 PM EDT Office Visit Ophthalmology at [place] [phone] Juanpablo Hernandez MD [facility] [place] [address] 05/23/2024 2:45 PM [facility] Clinical Support Family Medicine at [facility] [address] [place] [address] Julia Low, [facility] 01/30/2025 1:30 PM EDT Laboratory Appointment Lab at [facility] Hematology Oncology [address] [place] [address] 01/30/2025 3:[address] [place] [address] Arturo Cordero MD [facility] [place] [address] 01/30/2025 4:15 PM EDT Office Visit Hematology [place] [address] Arturo Cordero MD [facility] [place] [address] documented as of this encounter Visit Diagnoses Not on filedocumented in this encounter Care Teams Projection Camera Operator Relationship Specialty Start Date End Date Luis E Narayan MD NPI: [id number] [place] [address] [address] [place] [address] PCP - General Family Medicine 03/26/19 01/19/22 documented as of this encounter
--- OUTSIDE RECORDS SUMMARY | 2024-04-15 15:58 | XMS_ITS | Encounter Summary ---
Author Organization [facility] [place] [address] Care Team Providers Care Employee Relations Specialist Name Role Phone Luis E Narayan MD Primary Care Provider Reason for Referral * Diagnostic Test (Routine) - Closed Specialty Diagnoses / Procedures Referred By Gonzalez t Referred To Contact Radiology Diagnoses Renal cancer, left Procedures CT Abdomen wwo Contrast Avila Medina MD [facility] [place] [address] [facility] [place] [address] Referral ID Status Reason Start Date Expiration Date V isits Requested Visits Authorized [id number] Closed Specialty Service Requested 12/30/2019 06/27/2020 1 1 Reason for Visit * Diagnostic Test (Routine) - Closed Specialty Diagnoses / Procedures Referred By Gonzalez kumari Referred To Contact Radiology Diagnoses Renal cancer, left Procedures CT Abdomen wwo Contrast Avila Medina MD [facility] [address] [facility] [place] [address] Referral ID Status Reason Start Date Expiration Date V isits Requested Visits Authorized [id number] Closed Specialty Service Requested 12/30/2019 06/27/2020 1 1 Encounter Details Date Type Department Care Team (Latest Contact Info) Description 01/13/2020 10:45 AM EDT - 01/13/2020 11:59 PM EDT Hospital Encounter CT Scan [place] [facility] [place] [address] Avila Medina MD [facility] [place] [address] Renal cancer, left Discharge Disposition: Home Social [...] 08/05/2019 06/14/2021 fluticasone propionate (FLONASE) 50 mcg/actuation [place], Suspension 1 spray by Each Nare route [...] 05/01/2024 11:20 AM EDT Appointment Mammography/[place] [phone] Rodney Padilla MD 05/01/2024 1:45 PM EDT Office [place] [address] Juanpablo Hernandez MD [facility] [place] [address] 05/23/2024 2:45 PM EST Clinical Support Family Medicine at [facility] [address] [place] [address] Julia Low, [facility] 01/30/2025 1:30 PM EDT Laboratory Appointment Lab at [facility] Hematology Oncology [address] [place] [address] 01/30/2025 3:[address] [place] [address] Arturo Cordero MD [facility] [place] [address] 01/30/2025 4:15 PM EDT Office Visit Hematology [place] [address] Arturo Cordero MD [facility] DR H[place]AT[place] [address] documented as of this encounter Procedures Procedure [...] ? Electronically signed by: Shea Larose MD, [facility] ([phone]), at 01/13/2020 12:45 PM Narrative 01/13/2020 12:45 [...] Intravenous, ONCE PRN, 1 dose, Starting on Mon01/13/20 at 1130, Until Mon01/13/20 at 1152, Per Protocol, Warning Vesicant/Irritant Medication , Radiology Contrast, Routine Given 01/13/2020 11:52 AM EDT 115 mLs documented in this encounter Care Teams Employee Relations Specialist Relationship Specialty Start Date End Date Luis E Narayan MD [facility] DR [address] [place] [address] PCP - General Family Medicine 03/26/19 01/19/22 documented as of this encounter
--- OUTSIDE RECORDS SUMMARY | 2024-04-15 15:58 | XMS_ITS | Encounter Summary ---
Author Organization [facility] [place] [address] Care Team Providers Care Digital Business Analyst Name Role Phone Luis E Narayan MD Primary Care Provider Reason for Referral * Consultation (Routine) - Closed Specialty Diagnoses / Procedures Referred By Gonzalez kumari Referred To Contact Primary Care Diagnoses Bipolar affective disorder in remission Recurrent major depressive disorder, in remission Luis E Narayan MD [facility] [place] [address] [facility] Medicine [address] [place] [address] Referral ID Status Reason Start Date Expiration Date V isits Requested Visits Authorized [id number] Closed Specialty Service Requested 01/31/2020 01/30/2021 1 1 Reason for Visit * Reason Comments Follow-up here for a follow up re. blood tests Encounter Details Date Type Department Care Team (Late Contact Info) Description 01/31/2020 3:00 PM EDT Office Visit Family Medicine at [facility] [address] [place] [address] Luis E Narayan MD [facility] [address] Bipolar affective disorder in remission; [...] causing significant difficulty with ADLs. 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 Still has neuropsych/cognitive testing Mood [...] quant; Future; Expected date: 01/31/2020 - DEANNA ([facility]); Future; Expected date: 01/31/2020 - CRP, acute inflammation; Future; Expected date: 01/31/2020 Diabetes - controlled, cont metformin 1000mg bid documented in this encounter Plan of Treatment Upcoming Encounters Date Type Department Care Team (Late st Contact Info) Description 05/01/2024 11:20 AM EDT Appointment Mammography/[place] [address] Rodney Padilla MD 05/01/2024 1:45 PM EDT Office [place] [address] Juanpablo Hernandez MD [facility] [place] [address] 05/23/2024 2:45 PM EST Clinical Support Family Medicine at [facility] [address] [address] Julia Low, [facility] 01/30/2025 1:30 PM EDT Laboratory Appointment Lab at [facility] Hematology Oncology [address] [place] [address] 01/30/2025 3:[address] [place] [phone] Arturo Cordero MD [facility] [place] [address] 01/30/2025 4:15 PM EDT Office Visit Hematology [place] [address] Arturo Cordero MD [facility] [place] [address] Scheduled Referrals Name Type Priority Associated Diagnoses [...] PM EDT) C-Reactive Protein 6.0(H) <=4.9 mg/L [facility] Blood specimen (specimen) 01/31/2020 4:07 PM EDT 01/31/2020 7:06 PM EDT Narrative Resulting Agency Comment Spec In Lab Luis E Narayan MD CHEMISTRY ORDERABLE S Performing Organization Address City/[facility]/ZIP Co de Phone Number [facility] [place] [address] * DEANNA ([facility]) (01/31/2020 4:07 PM EDT) DEANNA Neg Neg [facility] Comment:Anti-nuclear antibod ies were tested using an indirect immunofluorescent assay. Blood specimen (specimen) 01/31/2020 4:07 PM EDT 02/03/2020 7:29 AM EDT Narrative Resulting Agency Comment Spec In Lab Luis E Narayan MD LAB SEND OUT ORDERA BLES Performing Organization Address [facility]/ZIP Co de Phone Number [facility] [place] [address] * Rheumatoid factor, quant (01/31/2020 4:07 PM EDT) Pathologist [facility] Rheumatoid Factor <10 <=14 IU/mL [facility] Blood specimen (specimen) 01/31/2020 4:07 PM EDT 01/31/2020 7:06 PM EDT Narrative Resulting Agency Comment Spec In Lab Luis E Narayan MD CHEMISTRY ORDERABLE S Performing Organization Address [facility]/ZIP Co de Phone Number [facility] [place] [address] documented in this encounter Visit Diagnoses Diagnosis Bipolar affective disorder in remission Recurrent major depressive disorder, in remission Arthralgia, unspecified joint documented in this encounter Care Teams Digital Business Analyst Relationship Specialty Start Date End Date Luis E Narayan MD [facility] [place] [place] [address] PCP - General Family Medicine 03/26/19 01/19/22 documented as of this encounter
--- OUTSIDE RECORDS SUMMARY | 2024-04-15 15:58 | XMS_ITS | Encounter Summary ---
Author Organization [facility] [place] [address] Care Team Providers Care Welfare Supervisor Name Role Phone Daryn Garrett MD Primary Care Provider Reason for Visit * Reason Onset Date Comments Medication Refill 09/28/2019 Encounter Details Date Type Department Care Team (Late st Contact Info) Description 09/28/2019 Refill Family Medicine at [facility] [address] [place] [address] Luis E Narayan MD [facility] [address] [address] Social History Tobacco Use Types Packs/Day Years [...] 05/01/2024 11:20 AM EDT Appointment Mammography/[place] [phone] Rodney Padilla MD 05/01/2024 1:45 PM EDT Office [place] [address] Juanpablo Hernandez MD [facility] [place] [address] 05/23/2024 2:45 PM EST Clinical Support Family Medicine at [facility] [address] [place] [address] Julia Low, [facility] 01/30/2025 1:30 PM EDT Laboratory Appointment Lab at [facility] Hematology Oncology [address] [place] [address] 01/30/2025 3:[address] [place] [address]1000 Arturo Cordero MD [facility] [place] [address] 01/30/2025 4:15 PM EDT Office Visit Hematology [place] [address] Arturo Cordero MD [facility] [place] [address] documented as of this encounter Visit Diagnoses Not on filedocumented in this encounter Care Teams Welfare Supervisor Relationship Specialty Start Date End Date Daryn Garrett MD [facility] [address] [place] [address] PCP - General 04/10/24 documented as of this encounter
--- OUTSIDE RECORDS SUMMARY | 2024-04-15 15:59 | XMS_ITS | Encounter Summary ---
Author Organization [facility] Address [facility] [place] [address] Care Team Providers Care German Instructor Name Role Phone Luis E Narayan MD Primary Care Provider [phone] Encounter Details Date Type Department Care Team (Late st Contact Info) Description 07/02/2019 [place] [address] Avila Medina MD [facility] [place] [address] Social History Tobacco Use Types Packs/Day Years [...] Bustos - 07/02/2019 9:51 AM EST PHONE: [phone] Pt is calling after discharge yesterday. She [...] AM EDT Appointment Mammography/DXA at [place] [phone] Rodney Padilla MD 05/01/2024 1:45 PM EDT Office Visit Ophthalmology at [place] [phone] Juanpablo Hernandez MD [facility] [place] [address] 05/23/2024 2:45 PM EST Clinical Support Family Medicine at [facility] [address] [place] [address] Julia Low, [facility] 01/30/2025 1:30 PM EDT Laboratory Appointment Lab at [facility] Hematology Oncology [address] [place] [address] 01/30/2025 3:[address] Scan at [place] [phone] Arturo Codrero MD [facility] HEMATOLOGY [place] [address] 01/30/2025 4:15 PM EDT Office Visit Hematology [place] [address] Arturo Cordero MD [facility] DR HEMATOLOGY [place] [address] documented as of this encounter Visit Diagnoses Not on filedocumented in this encounter Care Teams German Instructor Relationship Specialty Start Date End Date Luis E Narayan MD [facility] DR LIL[address] [place] [address] PCP - General Family Medicine 03/26/19 01/19/22 documented as of this encounter
--- OUTSIDE RECORDS SUMMARY | 2024-04-15 15:59 | XMS_ITS | Encounter Summary ---
Author Organization [facility] [place] [address] Care Team Providers Care It Communications Manager Name Role Phone Luis E Narayan MD Primary Care Provider Reason for Referral * Diagnostic Test (Routine) - Closed Specialty Diagnoses / Procedures Referred By Gonzalez kumari Referred To Contact Radiology Diagnoses Renal cancer, left Procedures CT Abdomen wwo Contrast Josseline Machado MD [facility] [place] [address] [facility] [place] [address] Referral ID Status Reason Start Date Expiration Date V isits Requested Visits Authorized [id number] Closed Specialty Service Requested 12/30/2019 06/27/2020 1 1 Reason for Visit * Reason Comments Follow-up Encounter Details Date Type Department Care Team (Late st Contact Info) Description 07/17/2019 10:20 AM EST [place] [address] Josseline Machado MD [facility] [place] [address] Renal cancer, left (Primary Dx) [...] Left robot assited partial nephrectomy for a [id number] Grade 3 clear cell cancer. All surgical margins were negative. Warm ischemia time was 16 minutes 45 seconds. 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 - Margins negative for carcinoma. - See synoptic report for additional details and staging. Page 1 of 2 Name: ALIZE MANJARREZ Report ID: [id number] The signing pathologist has (i) examined the relevant preparation(s) for the specimen(s); and rendered or confirmed the diagnosis(es). Pathology Report Collected: 06/28/2019 12:57 Received: 06/28/2019 13:20 DIAGNOSIS Electronically signed by: Christine Pierce MD Verified: 07/04/2019 Pathologist Performed at: -[facility] Dept. of Pathology, [place], [place] Following the surgery she did well [...] Cr 0.84, eGFR 76 Xrays: None Imp: [id number] Grade 3 Clear Cell renal cancer sp [...] AM EDT Appointment Mammography/[place] [address] Rodney Padilla MD 05/01/2024 1:45 PM EDT Office [place] [address] Juanpablo Hernandez MD [facility] [place] [address] 05/23/2024 2:45 PM EST Clinical Support Family Medicine at [facility] [address] [place] [address] Julia Low [facility] 01/30/2025 1:30 PM EDT Laboratory Appointment Lab at [facility] Hematology Oncology [address] [place] [address] 01/30/2025 3:[address] [place] [address] Arturo Cordero MD [facility] [place] [address] 01/30/2025 4:15 PM EDT Office Visit Hematology and Oncology at [facility] [place] [address] Arturo Cordero MD [facility] DR [place] [address] Scheduled Orders Name Type Priority Associated Diagnoses [...] contact the number below. Electronically signed by: Shea Larose MD, [facility]([phone]), at 01/13/2020 12:45 PM Josseline Machado MD IMG CT ORDERABLES * [...] the number below. ? Electronically signed by: Nakia Goetz [facility] ([phone]), at 01/13/2020 11:12 AM Narrative 01/13/2020 11:12 AM EDT EXAMINATION: XR [...] number below. Electronically signed by: Nakia Goetz [facility]([phone]), at 01/13/2020 11:12 AM Josseline Machado MD IMG DX ORDERABLES documented in this encounter Visit Diagnoses Diagnosis Renal cancer, left- Primary Renal cancer, left Renal cancer, left documented in this encounter Care Teams It Communications Manager Relationship Specialty Start Date End Date Luis E Narayan MD [facility] [place] [address] PCP - General Family Medicine 03/26/19 01/19/22 documented as of this encounter
--- OUTSIDE RECORDS SUMMARY | 2024-04-15 15:59 | XMS_ITS | Encounter Summary ---
Author Organization [facility] [place] [address] Care Team Providers Care Return To Vendor Name Role Phone Luis E Narayan MD Primary Care Provider [phone] Reason for Visit * Auth/Cert Specialty Diagnoses / Procedures Referred By Gonzalez t Referred To Contact Diagnoses Renal Mass Procedures PRO LAP, PARTIAL NEPHRECTOMY LAPAROSCOPY, PARTIAL NEPHRECTOMY, ROBOTIC ASSIST (WRVU 27.41) MODIFIER ROBOT,DAVINCI XI Referral ID Status Reason Start Date Expiration Date Visits Re quested Visits Authorized [id number] 1 1 Encounter Details Date Type Department Care Team (Late st Contact Info) Description 06/28/2019 8:34 AM EST Anesthesia [place] [address] Nathan Schmidt MD [facility] [place] [address] Anesthesia Record Procedure Summary Procedure Name Responsible [...] Lumen metacarpal vein (top of hand), right; otmw-kkz-quxgxw catheter system; 18 gauge; Nathan Schmidt MD; ([place]); 06/29/19; 182306/28/19 1102 by 06/29/19 1824 by Carlota Rocha, [facility] (RETIRED) Peripheral IV Line - Single Lumen 06/28/19; 0807; median cubital vein (antecubital fossa), left; quoo-tqv-fndjdh catheter system; 20 gauge; Gerson Boston RN; [...] Christine Wu RN Arterial Line 06/28/19; 1018; [facility] hial artery, left; 20 gauge; Nathan Schmidt; Sterile Prep, Sterile Gloves; removed by MD Brayan; no longer indicated, catheter intact; 06/28/19; 1515 06/28/19 1018 by Joni Jane MD 06/28/19 1515 by Caar Jain RN Incision 06/28/19; 1035; abdo men; [...] Procedure Summary Date: 06/28/19 Room / Location: [facility] OR [facility] MAIN OR Anesthesia Start: 833 Anesthesia Stop: 135 Procedures: LAPAROSCOPY, PARTIAL NEPHRECTOMY, ROBOTIC ASSIST (WRVU 27.41) (Left Flank) MODIFIER ROBOT,DAVINCI XI (N/A ) Diagnosis: Renal mass (renal mass) Surgeon: Avila Medina MD Responsible Provider: Nathan Schmidt MD Anesthesia Type: general ASA Status: 3 All Anesthesia Providers: Anesthesiologist: Nathan Schmidt MD Corporate Strategy Intern: Joni Jane MD Vitals Value Taken Time BP 118/57 06/28/2019 1:51 PM Temp Pulse 68 06/28/2019 2:00 PM Resp 22 06/28/2019 2:00 PM SpO2 99 % 06/28/2019 2:00 PM Pain Level Vitals shown include unvalidated device data. Patient Location: PACU/[facility] Level of Consciousness: Conscious but [...] and mask, cap, sterile gloves, hand hygeine K-hlmbv-utolo 21 10 cm Ultrasound Guided: YES and [...] Bipolar affective disorder in remission Diagnosis in [facility] records, unconfirmed ??? Anxiety ??? Depressive disorder [...] TSH, etc. ??? Coronary artery disease involving [place] coronary artery of [place] heart with angina pectoris History of angina [...] uses inhalerswith good effect ??? Atherosclerosis of [place] coronary artery of [place] heart with angina pectoris 10/09/2007 History of [...] 05/01/2024 11:20 AM EDT Appointment Mammography/[place] [address] Rodney Padilla MD 05/01/2024 1:45 PM EDT Office [place] [address] Juanpablo Hernandez MD [facility] [place] [address] 05/23/2024 2:45 PM EST Clinical Support Family Medicine at [address] [address] Julia Low, [facility] 01/30/2025 1:30 PM EDT Laboratory Appointment Lab at [facility] Hematology Oncology [address] [place] [address] 01/30/2025 3:[address] [place] [address] Artruo Cordero MD [facility] DR HEMATOLOGY [place] [address] 01/30/2025 4:15 PM EDT Office Visit [place]ology [place] [address] Arturo Cordero MD [facility] HEMATOLOGY [place] [address] documented as of this encounter Procedures Procedure [...] and mask, cap, sterile gloves, hand hygeine R-cyhbv-srzbi 21 10 cm Ultrasound Guided: ??YES and [...] tolerated procedure without issue. 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 [facility] documented in this encounter Visit Diagnoses Not on filedocumented in this encounter Administered Medications Inactive Administered Medications - up to 3 most recent administrations Medication Order MAR Action Action Date Dose Rate Site cefTRIAXone (ROCEPHIN) 2 g vial attach to sodium chloride 0.9% 50 mL Mini-Bag Plus 2 g, Intravenous, LIQUOR CLERK TO O.R., 1 dose, On Mon06/28/19 at [...] subcutaneous injection 5,000 Units 5,000 Units, Subcutaneous, LIQUOR CLERK TO O.R., 1 dose, On Mon06/28/19 at [...] 1604, Day of Surgery (Day of Procedure) [facility] 06/28/2019 10:20 AM EST [facility] Bag 06/28/2019 8:34 AM EST [facility] 06/28/2019 8:08 AM EST 1,000 mLs 100 mL/hr lactated ringers infusion CONTINUOUS PRN, Starting on Mon06/28/19 at 0909, Until Mon06/28/19 at 1359, Anesthesia Intra-op [facility] 06/28/2019 9:09 AM EST lidocaine (PF) (XYLOCAINE) [...] Until Mon06/28/19 at 1359, Anesthesia Intra-op, Routine [facility] 06/28/2019 10:19 AM EST 20 mcg/min 15 [...] mLs documented in this encounter Care Teams Return To Vendor Relationship Specialty Start Date End Date Luis E Narayan MD [facility] DR LILI WALKER[place] [address] PCP - General Family Medicine 03/26/19 01/19/22 documented as of this encounter
--- OUTSIDE RECORDS SUMMARY | 2024-04-15 15:59 | XMS_ITS | Encounter Summary ---
Author Organization [facility] [address] Care Team Providers Care Fund Accountant Name Role Phone Luis E Narayan MD Primary Care Provider Reason for Visit * Auth/Cert Specialty Diagnoses / Procedures Referred By Gonzalez t Referred To Contact Diagnoses Renal Mass Procedures PRO LAP, PARTIAL NEPHRECTOMY LAPAROSCOPY, PARTIAL NEPHRECTOMY, ROBOTIC ASSIST (WRVU 27.41) MODIFIER ROBOT,DAVINCI XI Referral ID Status Reason Start Date Expiration Date Visits Re quested Visits Authorized [id number] 1 1 Encounter Details Date Type Department Care Team (Late st Contact Info) Description 06/28/2019 8:30 AM EST - 06/28/2019 12:58 PM EST [place] [address] Avila Medina MD [facility] [place] [address] ROBOTIC LAPAROSCOPY, PARTIAL NEPHRECTOMY (WRVU 27.41) Social [...] Hospital Course: Alize Gramajo was admitted to [facility] on 06/28/2019 through the Same Day Surgery [...] that part of your care. Urology Clinic: [phone] PCP: Luis E Narayan MD, . Please follow-up with your PCP in 1-2 weeks or sooner as needed. Scheduled Appointments: The following appointments have been scheduled on your behalf: Future Appointments and Orders Future Appointments and Orders Future Appointments Provider Department Dept Phone 07/09/2019 2:30 PM [facility] Neurodiagnostic at [facility] Arrive at: Data Analyst Area [phone] 07/17/2019 9:20 AM LAB, THREE L Lab [facility] Arrive at: Data Analyst Area 3L [phone] 07/17/2019 10:20 AM Avila Medina MD Urology at [facility] Arrive at: Data Analyst Area 5B [phone] 07/22/2019 1:00 PM Luis E Narayan MD Primary Care at [facility] Arrive at: Data Analyst 2 South [phone] 08/05/2019 1:45 PM Amy Aguiar MD Neurology at [facility] Arrive at: Data Analyst Area 3C [phone] 08/13/2019 7:30 PM SLEEP, PHYSICIAN Sleep Center at [facility] Arrive at: Data Analyst [address] [place] [phone] Future Orders Complete By Expires Basic Metabolic [...] 07/09/2019 2:30 PM C-ELECTRONEURO, DIAGNOSTICS Neurodiagnostic at [facility] Arrive at: Data Analyst Area [phone] 07/17/2019 9:20 AM LAB, THREE L Lab [address] [place] [address] Arrive at: [facility] 07/17/2019 10:20 AM Avila Medina MD Urology at [facility] Arrive at: [facility] Area [phone] 07/22/2019 1:00 PM Luis E Narayan MD Primary Care at [facility] Arrive at: Data Analyst 2 [facility] [phone] 08/05/2019 1:45 PM Amy Aguiar MD Neurology at [facility] Arrive at: [facility] Area [phone] 08/13/2019 7:30 PM SLEEP, PHYSICIAN Sleep Center at [facility] Arrive at: Data Analyst [address] [phone] Future Orders Complete By Expires Basic Metabolic [...] contact us. Provider Contact Information: Urology Clinic: [phone] [facility] (after business hours): CC: Luis E Narayan [...] 07/09/2019 2:30 PM [facility] Neurodiagnostic at [facility] Arrive at: Data Analyst Area 3C [phone] 07/17/2019 9:20 AM LAB, THREE L Lab [facility] Arrive at: Data Analyst Area 3L [phone] 07/17/2019 10:20 AM Avila Medina MD Urology at [facility] Arrive at: Data Analyst Area 5B [phone] 07/22/2019 1:00 PM Luis E Narayan MD Primary Care at [facility] Arrive at: Data Analyst 2 [facility] [phone] 08/05/2019 1:45 PM Amy Aguiar MD Neurology at [facility] Arrive at: Data Analyst Area [phone] 08/13/2019 7:30 PM SLEEP, PHYSICIAN Sleep Center at [facility] Arrive at: Data Analyst [address] [phone] Future Orders Complete By Expires Basic Metabolic [...] 04/09/2019 06/22/2020 fluticasone propionate (FLONASE) 50 mcg/actuation Jud, Suspension 50 sprays by Each Nare route [...] patient. Please page the Regional Anesthesia Team ([id number]) with any questions or concerns. ?? Continue current management per primary service. ?? Thank you for the opportunity to have participated in the care of this patient. Julissa Morris MD Regional Team pager [phone] * Camilla Carrera - 06/30/2019 12:02 PM EST Urology Inpatient Progress Note ID: Alize Gramajo is a 58 y.o. female with history of ASCVD ([place] with Stent 2007, on plavix), DM2, HTN, [...] rosario food. Resident paged - redirected this physician underwriter to someone else on urology team. [...] spec had hemolyzed/ Lab contacted by this physician underwriter at [phone] and new specimen has [...] 58 y.o. female with history of ASCVD ([place] with Stent 2007, on plavix), DM2, HTN, [...] 06/28/2019 7:39 AM EST Urology PreOp H&P Alzie Gramajo 58 y.o. 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 fluticasone propionate (FLONASE) 50 mcg/actuation Jud, Suspension 50 sprays by Each Nare route [...] Medina MD - 07/01/2019 3:45 PM EST [facility] Operative Note Patient Name: Alize Gramajo : [id number] MR#: [id number] Case Date: 06/28/2019 Surgeon: Surgeon(s) and Role: * Avila Medina MD - Primary * Juanpablo Helm MD - Resident Registered Nurse Painter Decorator: Felisha Sher RN Preoperative diagnosis: renal mass [...] Info Order Time SPECIMEN TO PATHOLOGY OR09 [id number] renal mass Left renal mass and fat [...] additional robotic ports were placed and an lead dental assistant port, air seal was placed. Using [...] Admission order reviewed. Primary Insurance on file: [employer] [facility] Secondary Insurance on file: N/A Primary care provider on file: Luis E Narayan MD [phone] Advance Directive on file and Code Status: <no information>, Full Code Patient???s Functional Status: Independent using front wheel walker Living Situation: Home with support of family and friends [address] [facility] [address] Supports:Family and friends Assessment: Patient with no apparent RNCM/SW needs at this time. No housing, transportation, insurance, resources concerns identified at this time. Supports in place to achieve a safe post-hospital transition. No identified barriers to accessing necessary care and/or follow-up after discharge. Plan: Patient to d/c to Home via car when medically ready. range master/Assistant Laboratory Director will continue to follow patient???s progress and remain available if situation changes for coordination of care, psychosocial support and/or discharge planning. Rani Emanuel RN Pager [phone] Extension [phone] * Plan of Care - Allison Sánchez [...] meal coverage, correction doses administered/or held per [facility] order parameters in place. HR [...] Operative Note Patient Name: Alize Gramajo : [id number] MR#: [id number] Case Date: 06/28/2019 Surgeon: Surgeon(s) and Role: [...] Info Order Time SPECIMEN TO PATHOLOGY OR09 [id number] renal mass Left renal mass and fat [...] 05/01/2024 11:20 AM EDT Appointment Mammography/[place] [address] Rodney Padilla MD 05/01/2024 1:45 PM EDT Office [place] [phone] Juanpablo Hernandez MD [facility] [place] [address] 05/23/2024 2:45 PM EST Clinical Support Family Medicine at [facility] [address] [place] [phone] Julia Low [facility] 01/30/2025 1:30 PM EDT Laboratory Appointment Lab at [facility] Hematology Oncology [address] [place] [address] [phone] 01/30/2025 3:[address] [place] [address] Arturo Cordero MD [facility] [address] [place] [address] 01/30/2025 4:15 PM EDT Office Visit Hematology and Oncology at [facility] [place] [address] Arturo Cordero MD [facility] [address] [place] [address] documented as of this encounter Procedures Procedure [...] AM EST Renal mass Lap, Partial Nephrectomy (00608) 06/28/2019 8:39 AM EST Renal mass POCT GLUCOSE Routine 06/28/2019 8:17 AM EST documented in this encounter Results * Basic Metabolic Panel (non-fasting) (07/17/2019 9:47 AM EST) Glucose 131 65 - 199 mg/dL [facility] Comment:Diabetes: >=200 mg/d L plus symptoms Blood Urea Nitrogen 17 8 - 18 mg/dL [facility] Creatinine 0.84 0.70 - 1.20 mg/dL [facility] Sodium 140 135 - 145 mmol/L [facility] Potassium 4.5 3.5 - 5.0 mmol/L [facility] Comment: Please note: ??Patients with WBC >100,000 may have falsely elevated Potassium levels. ??For accurate Potassium quantification in these patients send serum separator tube (gold top) for subsequent determinations. ??Contact the Clinical Chemistry Laboratory if there are any questions. Chloride 102 98 - 107 mmol/L [facility] Carbon Dioxide 28 22 - 31 mmol/L [facility] Anion Gap 10 5 - 15 mmol/L [facility] Calcium 10.1 8.5 - 10.5 mg/dL [facility] Est Glomerular Filtration Rate 76 >=60 mL/min/1. 73 m?? [facility] Comment: The eGFR was calculated using the CKD-EPI equation. As with all creatinine based estimates of kidney function, eGFR values calculated with the CKD-EPI equation are not accurate in patients with acute kidney failure, extremes of body mass or the acutely ill. http://[employer]/[facility] eGFR 88 >=60 mL/min/1. 73 m?? [facility] Comment: The eGFR was calculated using the CKD-EPI equation. As with all creatinine based estimates of kidney function, eGFR values calculated with the CKD-EPI equation are not accurate in patients with acute kidney failure, extremes of body mass or the acutely ill. [email or web address] Blood specimen (specimen) 07/17/2019 9:47 AM EST 07/17/2019 9:56 AM EST Narrative Resulting Agency Comment Spec In Lab Avila Medina MD CHEMISTRY ORDERABLES [facility] [place] [address] * POCT Glucose (07/01/2019 12:01 PM EST) Glucose, POC 124 65 - 199 mg/dL [facility] Comment: Supplemental ranges: <140 mg/dL before meals <180 mg/dL all other times of the day Blood specimen (specimen) 07/01/2019 12:01 PM EST 07/01/2019 12:01 PM EST Avila Medina MD POINT OF CARE TEST O ULISES Performing Organization Address City/[facility] Co de Phone Number [facility] [place] [address] * POCT Glucose (07/01/2019 7:28 AM EST) Glucose, POC 123 65 - 199 mg/dL [facility] Comment: Supplemental ranges: <140 mg/dL before meals <180 mg/dL all other times of the day Blood specimen (specimen) 07/01/2019 7:28 AM EST 07/01/2019 7:28 AM EST Avila Medina MD POINT OF CARE TEST Junior MONTGOMERY Performing Organization Address [facility] Co de Phone Number [facility] [place] [address] * POCT Glucose (06/30/2019 7:41 PM EST) Glucose, POC 120 65 - 199 mg/dL [facility] Comment: Supplemental ranges: <140 mg/dL before meals <180 mg/dL all other times of the day Blood specimen (specimen) 06/30/2019 7:41 PM EST 06/30/2019 7:41 PM EST Avila Medina MD POINT OF CARE TEST O ULISES Performing Organization Address City/[facility] Co de Phone Number [facility] [place] [address] * POCT Glucose (06/30/2019 3:15 PM EST) Glucose, POC 131 65 - 199 mg/dL [facility] Comment: Supplemental ranges: <140 mg/dL before meals <180 mg/dL all other times of the day Blood specimen (specimen) 06/30/2019 3:15 PM EST 06/30/2019 3:15 PM EST Avila Medina MD POINT OF CARE TEST O ULISES Performing Organization Address [facility] de Phone Number [facility] [place] [address] * POCT Glucose (06/30/2019 11:52 AM EST) Glucose, POC 146 65 - 199 mg/dL [facility] Comment: Supplemental ranges: <140 mg/dL before meals <180 mg/dL all other times of the day Blood specimen (specimen) 06/30/2019 11:52 AM EST 06/30/2019 11:52 AM EST Avila eMdina MD POINT OF CARE TEST O ULISES Performing Organization Address [facility] de Phone Number [facility] [place] [address] * POCT Glucose (06/30/2019 7:48 AM EST) Glucose, POC 131 65 - 199 mg/dL [facility] Comment: Supplemental ranges: <140 mg/dL before meals <180 mg/dL all other times of the day Blood specimen (specimen) 06/30/2019 7:48 AM EST 06/30/2019 7:48 AM EST Avila Medina MD POINT OF CARE TEST O ULISES Performing Organization Address [facility] de Phone Number [facility] [place] [address] * POCT Glucose (06/30/2019 3:26 AM EST) Glucose, POC 124 65 - 199 mg/dL [facility] Comment: Supplemental ranges: <140 mg/dL before meals <180 mg/dL all other times of the day Blood specimen (specimen) 06/30/2019 3:26 AM EST 06/30/2019 3:26 AM EST Avila Medina MD POINT OF CARE TEST O ULISES Performing Organization Address [facility] Co de Phone Number [facility] [place] [address] * POCT Glucose (06/29/2019 11:36 PM EST) Glucose, POC 153 65 - 199 mg/dL [facility] Comment: Supplemental ranges: <140 mg/dL before meals <180 mg/dL all other times of the day Blood specimen (specimen) 06/29/2019 11:36 PM EST 06/29/2019 11:36 PM EST Avila Medina MD POINT OF CARE TEST O ULISES Performing Organization Address [facility] Co de Phone Number [facility] [place] [address] * POCT Glucose (06/29/2019 3:36 PM EST) Glucose, POC 177 65 - 199 mg/dL [facility] Comment: Supplemental ranges: <140 mg/dL before meals <180 mg/dL all other times of the day Blood specimen (specimen) 06/29/2019 3:36 PM EST 06/29/2019 3:36 PM EST Avila Medina MD POINT OF CARE TEST O ULISES Performing Organization Address [facility] Co de Phone Number [facility] [place] [address] * POCT Glucose (06/29/2019 12:03 PM EST) Glucose, POC 138 65 - 199 mg/dL [facility] Comment: Supplemental ranges: <140 mg/dL before meals <180 mg/dL all other times of the day Blood specimen (specimen) 06/29/2019 12:03 PM EST 06/29/2019 12:03 PM EST Avila Medina MD POINT OF CARE TEST O RDERABLES Performing Organization Address [facility] de Phone Number [facility] [place] [address] * Creatinine Level Body Fluid YANDY Drain (06/29/2019 10:29 AM EST) Creatinine, Fluid 0.8 mg/dL [facility] Comment: No reference range is available for the specimen type submitted. ??The performance of this assay for the submitted type has not been validated and results should be interpreted accordingly and with regard to the patient's clinical status. Creat, Fld Type YANDY Drain [facility] YANDY Drain 06/29/2019 10:2 9 AM EST 06/29/2019 11:00 AM EST Narrative Resulting Agency Comment Spec In Lab Avila Medina MD BODY FLUIDS AND STOO LS ORDERABLES Performing Organization Address [facility] Phone Number [facility] [place] [address] * POCT Glucose (06/29/2019 6:53 AM EST) Pathologist [facility] Glucose, POC 129 65 - 199 mg/dL [facility] Comment: Supplemental ranges: <140 mg/dL before meals <180 mg/dL all other times of the day Blood specimen (specimen) 06/29/2019 6:53 AM EST 06/29/2019 6:53 AM EST Avila Medina MD POINT OF CARE TEST O RDERABLES Performing Organization Address [facility] Co de Phone Number [facility] [place] [address] * (ABNORMAL) Differential, Automated (06/29/2019 2:57 AM EST) Neutrophil % 73.6 % [facility] Neutrophil Absolute 7.96(H) 1.70 - 6.10 x10(3)/mc L [facility] Lymph % 15.1 % [facility] Lymphocytes Abs 1.6 0.9 - 3.2 x10(3)/ L [facility] Monocyte % 9.2 % [facility] Monocyte Abs 1.0(H) 0.3 - 0.9 x10(3)/[facility] Eos % 1.2 % [facility] Eosinophils Abs 0.1 0.0 - 0.4 x10(3)/[facility] Basophil % 0.4 % [facility] Baso Absolute 0.0 0.0 - 0.1 x10(3)/[facility] Immature Gran % 0.50 % [facility] Comment: Immature granulocytes(IG's)percentage and absolute count will include metamyelocytes, myelocytes, and promyelocytes. Blood smears from CBCs yielding IG's will be scanned manually for concordance. If this scan disagrees with the automated IG or if promyelocytes are noted, a manual differential will be performed. Immature Gran Absolute 0.05(H) 0.00 - 0.04 x10(3)/[facility] Blood specimen (specimen) 06/29/2019 2:57 AM EST 06/29/2019 3:03 AM EST Narrative Resulting Agency Comment Spec In Lab Camilla Carrera MD HEMATOLOGY ORDERABLE S [facility] [place] [address] * (ABNORMAL) Hemogram (06/29/2019 2:57 AM EST) White Blood Cell 10.8(H) 4.0 - 9.5 x10(3)/[facility] Red Blood Cell 4.17 4.00 - 5.21 x10(6)/[facility] Hemoglobin 11.9 11.7 - 15.5 gm/dL [facility] Hematocrit 37.3 35.7 - 45.8 % [facility] Mean Cell Volume 89.4 82.6 - 94.4 fL [facility] Mean Cell Hemoglobin 28.5 27.1 - 32.0 pg [facility] Mean Cell Hemoglobin Concentration 31.9 31.7 - 35.0 gm/dL [facility] Platelet 277 145 - 357 x10(3)/mc L [facility] RDW Standard Deviation 47.2(H) 37.0 - 46.0 fL [facility] RDW coefficient of variation 14.4(H) 11.5 - 14.1 % [facility] Mean Platelet Volume 9.4 7.6 - 12.9 fL [facility] NRBC% auto 0.0 % [facility] NRBC Absolute 0.000 0.000 - 0.000 x10(3)/mc L [facility] Blood specimen (specimen) 06/29/2019 2:57 AM EST 06/29/2019 3:03 AM EST Narrative Resulting Agency Comment Spec In Lab Camilla Carrera MD HEMATOLOGY ORDERABLE S [facility] [place] [address] * (ABNORMAL) BMP w/fasting Glucose (06/29/2019 2:57 AM EST) Glucose Fasting 116(H) 65 - 99 mg/dL [facility] Comment: ?Fasting* Glucose Interpretive Criteria [...] of Diabetes Mellitus, Position Statement from the [place] [employer]. ??Diabetes Care, Volume 33, Supplement 1, Jul 2009 Blood Urea Nitrogen 10 8 - 18 mg/dL [facility] Creatinine 0.82 0.70 - 1.20 mg/dL [facility] Sodium 144 135 - 145 mmol/L [facility] Potassium 4.2 3.5 - 5.0 mmol/L [facility] Comment: Please note: ??Patients with WBC >100,000 may have falsely elevated Potassium levels. ??For accurate Potassium quantification in these patients send serum separator tube (gold top) for subsequent determinations. ??Contact the Clinical Chemistry Laboratory if there are any questions. Chloride 107 98 - 107 mmol/L [facility] Carbon Dioxide 26 22 - 31 mmol/L [facility] Anion Gap 11 5 - 15 mmol/L [facility] Calcium 8.9 8.5 - 10.5 mg/dL [facility] Est Glomerular Filtration Rate 78 >=60 mL/min/1. 73 m?? [facility] Comment: The eGFR was calculated using the CKD-EPI equation. As with all creatinine based estimates of kidney function, eGFR values calculated with the CKD-EPI equation are not accurate in patients with acute kidney failure, extremes of body mass or the acutely ill. http://[employer]/[facility] eGFR 91 >=60 mL/min/1. 73 m?? [facility] Comment: The eGFR was calculated using the CKD-EPI equation. As with all creatinine based estimates of kidney function, eGFR values calculated with the CKD-EPI equation are not accurate in patients with acute kidney failure, extremes of body mass or the acutely ill. [email or web address] Blood specimen (specimen) 06/29/2019 2:57 AM EST 06/29/2019 3:03 AM EST Narrative Resulting Agency Comment Spec In Lab Avila Medina MD CHEMISTRY ORDERABLES [facility] [place] [address] * POCT Glucose (06/28/2019 9:57 PM EST) Glucose, POC 148 65 - 199 mg/dL [facility] Comment: Supplemental ranges: <140 mg/dL before meals <180 mg/dL all other times of the day Blood specimen (specimen) 06/28/2019 9:57 PM EST 06/28/2019 9:57 PM EST Avila Medina MD POINT OF CARE TEST O RDLESLEY Performing Organization Address City/[facility] Co de Phone Number [facility] [place] [address] * Creatinine Level Body Fluid YANDY Drain (06/28/2019 9:49 PM EST) Creatinine, Fluid 1.0 mg/dL [facility] Comment: No reference range is available for the specimen type submitted. ??The performance of this assay for the submitted type has not been validated and results should be interpreted accordingly and with regard to the patient's clinical status. Creat, Fld Type YANDY Drain [facility] YANDY Drain 06/28/2019 9:49 PM EST 06/28/2019 10:09 PM EST Narrative Resulting Agency Comment Spec In Lab Avila Medina MD BODY FLUIDS AND STOO LS ORDERABLES Performing Organization Address [facility] Co de Phone Number [facility] [place] [address] * POCT Glucose (06/28/2019 4:13 PM EST) Glucose, POC 116 65 - 199 mg/dL [facility] Comment: Supplemental ranges: <140 mg/dL before meals <180 mg/dL all other times of the day Blood specimen (specimen) 06/28/2019 4:13 PM EST 06/28/2019 4:13 PM EST Avila Medina MD POINT OF CARE TEST O ULISES [facility] [place] [address] * (ABNORMAL) BMP w/fasting Glucose (06/28/2019 2:30 PM EST) Glucose Fasting 147(H) 65 - 99 mg/dL [facility] Comment: ?Fasting* Glucose Interpretive Criteria [...] of Diabetes Mellitus, Position Statement from the [place] [employer]. ??Diabetes Care, Volume 33, Supplement 1, Jul 2009 Blood Urea Nitrogen 10 8 - 18 mg/dL [facility] Creatinine 0.80 0.70 - 1.20 mg/dL [facility] Sodium 144 135 - 145 mmol/L [facility] Potassium 4.3 3.5 - 5.0 mmol/L [facility] Comment: Please note: ??Patients with WBC >100,000 may have falsely elevated Potassium levels. ??For accurate Potassium quantification in these patients send serum separator tube (gold top) for subsequent determinations. ??Contact the Clinical Chemistry Laboratory if there are any questions. Chloride 108(H) 98 - 107 mmol/L [facility] Carbon Dioxide 25 22 - 31 mmol/L [facility] [facility] Anion Gap 11 5 - 15 mmol/L [facility] Calcium 8.9 8.5 - 10.5 mg/dL [facility] Est Glomerular Filtration Rate 81 >=60 mL/min/1. 73 m?? [facility] Comment: The eGFR was calculated using the CKD-EPI equation. As with all creatinine based estimates of kidney function, eGFR values calculated with the CKD-EPI equation are not accurate in patients with acute kidney failure, extremes of body mass or the acutely ill. [email or web address]/[email or web address] eGFR 94 >=60 mL/min/1. 73 m?? [facility] Comment: The eGFR was calculated using the CKD-EPI equation. As with all creatinine based estimates of kidney function, eGFR values calculated with the CKD-EPI equation are not accurate in patients with acute kidney failure, extremes of body mass or the acutely ill. [email or web address] Blood specimen (specimen) 06/28/2019 2:30 PM EST 06/28/2019 2:59 PM EST Narrative Resulting Agency Comment Spec In Lab Avila Medina MD CHEMISTRY ORDERABLES Performing Organization Address [facility] Co de Phone Number [facility] [place] [address] * Hemoglobin and Hematocrit, blood (06/28/2019 2:30 PM EST) Hemoglobin 12.5 11.7 - 15.5 gm/dL [facility] Hematocrit 37.8 35.7 - 45.8 % [facility] Blood specimen (specimen) 06/28/2019 2:30 PM EST 06/28/2019 2:59 PM EST Narrative Resulting Agency Comment Spec In Lab Avila Medina MD HEMATOLOGY ORDERABLE S Performing Organization Address City/[facility] Co de Phone Number [facility] [place] [address] * POCT Glucose (06/28/2019 2:05 PM EST) Glucose, POC 133 65 - 199 mg/dL [facility] Comment: Supplemental ranges: <140 mg/dL before meals <180 mg/dL all other times of the day Blood specimen (specimen) 06/28/2019 2:05 PM EST 06/28/2019 2:05 PM EST Avila Medina MD POINT OF CARE TEST O ULISES Performing Organization Address [facility] de Phone Number [facility] [place] [address] * Specimen to Pathology (06/28/2019 12:59 PM EST) AP Specimen 06/28/2019 12:5 9 PM EST 06/28/2019 12:59 PM EST Narrative [facility] - 06/28/2019 12:59 PM EST Specimen requisition ordered. ??Separate Pathology report to follow Avila Medina MD PATHOLOGY/CYTOLOGY O ULISES Performing Organization Address [facility] [place] [address] * Solid Tumor NGS Panel (06/28/2019 12:57 PM EST) Tissue specimen (specimen) 06/28/2019 12:57 PM EST 05/28/2020 1:28 PM EST Narrative Resulting Agency Comment Spec In Lab Avila Medina MD PATHOLOGY/CYTOLOGY O ULISES Performing Organization Address [facility] de Phone Number [facility] [place] [phone] * Surgical Pathology Report (06/28/2019 12:57 PM EST) Final Diagnosis [id number] ? Location: [facility]; [facility]; A The signing pathologist has (i) [...] Pierce MD Verified: ??07/04/2019 ?Pathologist Performed at: ??-[facility] Dept. of Pathology, [place], [place] DISCUSSION Whole slide scan: [id number] CLINICAL INFORMATION Specimen Submitted: A - [...] Inking: Parenchymal margin inked black. Sections/Processi ng: Automatic Furnace Operator sections in 10 cassettes as follows: ?A1-A5: ??Tumor to closest margin ?A6: ??Tumor to fat ?A7-A8: ??Additional regional sales representative tumor ?A9: ??Lesion to normal kidney ?A10: ??Normal kidney ??[facility] 07/04/2019 11:12 AM EST [facility] SPECIMEN FROM KIDNEY / Unknown 06/28/2019 12:57 PM EST 06/28/2019 12:57 PM EST Avila Medina MD PATHOLOGY/CYTOLOGY O RDERABLES [facility] [place] [address] * (ABNORMAL) BLOOD GAS 2 ARTERIAL (06/28/2019 11:13 AM EST) pH, Arterial 7.33(L) 7.35 - 7.45 [facility] PCO2, Arterial 51(H) 35 - 45 mmHg [facility] PO2, Arterial 198(H) 85 - 104 mmHg [facility] Bicarbonate, Arterial 26.8(H) 20.0 - 26.0 mmol/L [facility] Base Excess, Arterial 0.4 -3.0 - 3.0 mmol/L [facility] Hgb Blood Gas 13.4 11.7 - 15.5 gm/dL [facility] Oxyhemoglobin, Arterial 94.2 94.0 - 97.0 % [facility] Carboxyhemoglob in, Arterial 4.6 % [facility] Comment: Nonsmokers: 0.5-1.5% COHB Smokers: Variable, but usually less than 10% Toxic: 20-30% COHB Lethal: Greater than 60% COHB Methemoglobin, Arterial 0.3 <=1.5 % [facility] Na Whole Blood 140 135 - 145 mmol/L [facility] K Whole Blood 4.1 3.5 - 5.0 mmol/L [facility] Comment: Please note: Patients with WBC >100,000 may have falsely elevated Potassium levels. Contact the Clinical Chemistry Laboratory if there are any questions. ICa Whole Blood 1.18 1.15 - 1.33 mmol/L [facility] Comment: Note: ??Total bilirubin higher than 20 mg/dL may lead to falsely low ionized calcium. CL Whole Blood 108(H) 98 - 107 mmol/L [facility] Gluc Whole Bld 160 65 - 199 mg/dL [facility] Comment:Diabetes: >=200 mg/d L plus symptoms. Lactate WB 1.3 0.5 - 2.2 mmol/L [facility] FIO2 Art 56 % [facility] PF Ratio Art 354 [facility] Temp Art 35.3 Celsius [facility] Blood specimen (specimen) 06/28/2019 11:13 AM EST 06/28/2019 11:13 AM EST Avila Medina MD POINT OF CARE TEST Junior [facility] [place] [address] * POCT Glucose (06/28/2019 8:17 AM EST) Glucose, POC 146 65 - 199 mg/dL [facility] Comment: Supplemental ranges: <140 mg/dL before meals <180 mg/dL all other times of the day Blood specimen (specimen) 06/28/2019 8:17 AM EST 06/28/2019 8:17 AM EST Avila Medina MD POINT [place] [address] documented in this encounter Visit [...] Until Mon07/01/19 at 1846, Rhinitis, Allergies, Routine Given 06/30/2019 [...] Carlota Rocha RN)2331 (Given - Provider: Nelson Tomlinson, VEDA) 0600 (Given - Provider: Nelson Tomlinson, VEDA)1239 (Given - Provider: Allison Sánchez, VEDA)1740 (Given - Provider: Allison Sánchez, VEDA)2340 (Given - Provider: Nelson Tomlinson, VEDA) 0531 (Given - Provider: Nelson Tomlinson RN)1237 (Given - Provider: Yue Moore RN) amLODIPine (Norvasc) tablet 5 mg 5 mg, Oral, DAILY, First dose on Mon06/29/19 at 0900, Until Discontinued, Routine 1008 (Given - Provider: Christine Wu, VEDA) 0809 (Given - Provider: Allison Sánchez RN) [...] RN)2020 (Given - Provider: Nelson Tomlinson RN) 09 (Given - Provider: Yue Moore RN) docusate [...] Routine 2139 (Given - Provider: Nelson Tomlinson VEDA) 0533 (Given - Provider: Nelson Tomlinson, RN)1344 (Given - Provider: Allison Sánchez RN)2110 (Given - Provider: Nelson Tomlinson RN) 0532 (Given - Provider: Nelson Tomlinson, RN)1429 (Given - Provider: Yue Moore, RN) insulin lispro (HumaLOG) VIAL injection 0-6 Units [...] Allison Sánchez RN)1610 (Given - Provider: Allison Sánchez, VEDA) 0925 [...] Provider: Yue Moore RN - Comment: R Samir castillo. L ABD) lidocaine (LIDODERM) 5 %(700 mg/patch) [...] 0809 (Given - Provider: Allison Sánchez, VEDA) 0922 (Given - Provider: Yue Moore RN) [...] (Top), 2 TIMES DAILY, First dose on Mon06/29/19 at 2300, Until Discontinued 233 (Given - Provider: Nelson Tomlinson RN - Comment: L/R neck & shoulders) 810 (Given - Provider: Allison Sánchez, VEDA)2013 (Given - Provider: Nelson Tomlinson RN) 928 (Given - Provider: Yue Moore RN) metoprolol tartrate (Lopressor) tablet 12.5 mg 12.5 mg, Oral, EVERY 12 HOURS SCHEDULED (2 times per day), First dose (after last reorder) on Mon06/29/19 at 0900, Until Discontinued, Routine 1408 (Given [...] Sánchez RN) 0923 (Given - Provider: Yue Moore, VEDA) simvastatin (Zocor) tablet 10 mg 10 mg, Oral, DAILY, First dose on Mon06/28/19 at 1645, Until Discontinued 181 (Given - Provider: Carlota Rocha RN) 1631 (Given - Provider: Allison Sánchez RN) sodium chloride 0.9 % (flush) flush 5 mL 5 mL, Intravenous, 2 TIMES DAILY, First dose on Mon06/28/19 at 2100, Until Discontinued, Recovery (Recovery-Hospital Unit), Routine 1013 (Given - Provider: Christine Wu, VEDA)9 (Given - Provider: Nelson Tomlinson, VEDA) 0811 [...] Breath, Routine 0638 (Given - Provider: Alize Bernard, VEDA)1107 (Given - Provider: Christine Wu, VEDA) albuterol [...] Until 07/01/19 at 1846, Muscle spasms, Routine 0947 (Given [...] Until Mon07/01/19 at 1846, Rhinitis, Allergies, Routine 181 (Given - Provider: Carlota Rocha RN) 0948 [...] Christine Wu RN)2146 (Given - Provider: Nelson Tomlinson RN) 0809 (Given - Provider: Allison Sánchez RN)1240 (Given - Provider: Allison Sánchez, VEDA)1641 (Given - Provider: Allison Sánchez, VEDA) 0002 (Given - Provider: Nelson Tomlinson RN) lidocaine (XYLOCAINE) 10 mg/mL (1 %) injection [...] (Recovery-Hospital Unit) 1057 (Given - Provider: Christine Wu RN)2145 (See Alternative - Provider: Nelson Tomlinson RN) 1240 (See Alternative - Provider: Allison [...] Routine 0531 (Given - Provider: Nelson Tomlinson, RN) prochlorperazine (COMPAZINE) injection 10 mg(Linked Group [...] Routine documented in this encounter Care Teams Fund Accountant Relationship Specialty Start Date End Date Luis E Narayan MD [facility] [address] [place] [address] PCP - General Family Medicine 03/26/19 01/19/22 documented as of this encounter
--- OUTSIDE RECORDS SUMMARY | 2024-04-15 15:59 | XMS_ITS | Encounter Summary ---
Author Organization [facility] [place] [address] Care Team Providers Care Box Strapper Name Role Phone Luis E Naraayn MD Primary Care Provider Encounter Details Date Type Department Care Team (Late Contact Info) Description 07/02/2019 [place] [phone] Camilla Carrera MD [facility] [place] [address] Social History Tobacco Use Types Packs/Day Years [...] 11:20 AM EDT Appointment Mammography/[place] [phone] Rodney Padilla MD 05/01/2024 1:45 PM EDT Office [place] [phone] Juanpablo Hernandez MD [facility] [place] [address] 05/23/2024 2:45 PM EST Clinical Support Family Medicine at [place] [address] [place] [phone] Julia Low, [facility] 01/30/2025 1:30 PM EDT Laboratory Appointment Lab at [facility] Hematology Oncology [address] [place] [address] 01/30/2025 3:[address] Scan at [place] [phone] Arturo Cordero MD [facility] [address] [place] [address] 01/30/2025 4:15 PM EDT Office Visit Hematology [place] [phone] Arturo Cordero MD [facility] [address] [place] [address] documented as of this encounter Visit Diagnoses Not on filedocumented in this encounter Care Teams Box Strapper Relationship Specialty Start Date End Date Luis E Narayan MD [facility] DR [facility] [place] [address] PCP - General Family Medicine 03/26/19 01/19/22 documented as of this encounter
--- OUTSIDE RECORDS SUMMARY | 2024-04-15 15:59 | XMS_ITS | Encounter Summary ---
[place] [address] Care Team Providers Care Patient Resource Specialist Name Role Phone Luis E Narayan MD Primary Care Provider Encounter Details Date Type Department Care Team (Late st Contact Info) Description 07/18/2019 [place] [phone] Avila Medina MD [facility] [place] [address] Social History Tobacco Use Types Packs/Day Years [...] 05/01/2024 11:20 AM EDT Appointment Mammography[place] [address] Rodney Padilla MD 05/01/2024 1:45 PM EDT Office Visit Ophthalmology at [place] [phone] Juanpablo Hernandez MD [facility] [place] [address] 05/23/2024 2:45 PM EST Clinical Support Family Medicine at [facility] [address] [place] [phone] Julia Low [facility] 01/30/2025 1:30 PM EDT Laboratory Appointment Lab at [facility] Hematology Oncology [address] [place] [address] 01/30/2025 3:[address] Scan at [place] [phone] Arturo Cordero MD [facility] [address] [place] [address] 01/30/2025 4:15 PM EDT Office Visit Hematology and Oncology at [place] [phone] Arturo Cordero MD [facility] [address] [place] [address] documented as of this encounter Visit Diagnoses Not on filedocumented in this encounter Care Teams Patient Resource Specialist Relationship Specialty Start Date End Date Luis E Narayan MD [facility] [address] [place] [address] PCP - General Family Medicine 03/26/19 01/19/22 documented as of this encounter
--- OUTSIDE RECORDS SUMMARY | 2024-04-15 15:59 | XMS_ITS | Encounter Summary ---
Author Organization [facility] [place] [address] Care Team Providers Care Sock Liner Name Role Phone Luis E Narayan MD Primary Care Provider Reason for Visit * Auth/Cert Specialty Diagnoses / Procedures Referred By Gonzalez kumari Referred To Contact Diagnoses Renal Mass Procedures PRO LAP, PARTIAL NEPHRECTOMY LAPAROSCOPY, PARTIAL NEPHRECTOMY, ROBOTIC ASSIST (WRVU 27.41) MODIFIER ROBOT,DAVINCI XI Referral ID Status Reason Start Date Expiration Date Visits Re quested Visits Authorized [id number] 1 1 Encounter Details Date Type Department Care Team (Latest Contact Info) Description 06/28/2019 7:02 AM EST - 07/01/2019 4:46 PM [facility] Hospital Encounter [address] [place] [address] Avila Medina MD [facility] [place] [address] Renal mass, left Discharge Disposition: Home Social [...] Hospital Course: Alize Gramajo was admitted to [facility] on 06/28/2019 through the Same [...] that part of your care. Urology Clinic: [phone] PCP: Luis E Narayan MD, . Please follow-up with your PCP in 1-2 weeks or sooner as needed. Scheduled Appointments: The following appointments have been scheduled on your behalf: Future Appointments and Orders Future Appointments and Orders Future Appointments Provider Department Dept Phone 07/09/2019 2:30 PM [facility] Neurodiagnostic at [facility] Arrive at: [facility] [phone] 07/17/2019 9:20 AM LAB, THREE L Lab 3L [facility] Arrive at: [place] 07/17/2019 10:20 AM Avila Medina MD Urology at [facility] Arrive at: [facility] 5B [phone] 07/22/2019 1:00 PM Luis E Narayan MD Primary Care at [facility] Arrive at: [place] [address] [place] [phone] 08/05/2019 1:45 PM Amy Aguiar MD Neurology at [facility] Arrive at: [facility] [phone] 08/13/2019 7:30 PM SLEEP, PHYSICIAN Sleep Center at [facility] Arrive at: [facility] [address] [place] [phone] Future Orders Complete By Expires Basic Metabolic [...] 07/09/2019 2:30 PM C[facility]O, DIAGNOSTICS Neurodiagnostic at [facility] Arrive at: [place] [phone] 07/17/2019 9:20 AM LAB, THREE L Lab [address] [place] [address] Arrive at: [facility] Area [phone] 07/17/2019 10:20 AM Avila Medina MD Urology at [facility] Arrive at: [facility] Area [phone] 07/22/2019 1:00 PM Luis E Narayan MD Primary Care at [facility] Arrive at: [place] [facility] [phone] 08/05/2019 1:45 PM Amy Aguiar MD Neurology at [facility] Arrive at: [facility] Area [phone] 08/13/2019 7:30 PM SLEEP, PHYSICIAN Sleep Center at [facility] Arrive at: [place] [address] [place] [phone] Future Orders Complete By Expires Basic Metabolic [...] by the Urologic Surgery Team at [facility]. If you have any questions or concerns, please feel free to contact us. Provider Contact Information: Urology Clinic: [phone] [facility] (after business hours): CC: Luis [...] 07/09/2019 2:30 PM C-ELECTRONEURO, DIAGNOSTICS Neurodiagnostic at [facility] Arrive at: [place] 3C [phone] 07/17/2019 9:20 AM LAB, THREE L Lab 3[facility] Arrive at: [place] 3L [phone] 07/17/2019 10:20 AM Avila Medina MD Urology at [facility] Arrive at: [place] 5B [phone] 07/22/2019 1:00 PM Luis E Narayan MD Primary Care at [facility] Arrive at: [place] [facility] [phone] 08/05/2019 1:45 PM Amy Aguiar MD Neurology at [facility] Arrive at: [facility] [phone] 08/13/2019 7:30 PM SLEEP, PHYSICIAN Sleep Center at [facility] Arrive at: [facility] [address] [place] [phone] Future Orders Complete By Expires Basic Metabolic [...] 04/09/2019 06/22/2020 fluticasone propionate (FLONASE) 50 mcg/actuation [place], Suspension 50 sprays by Each Nare route [...] patient. Please page the Regional Anesthesia Team ([phone]) with any questions or concerns. ?? Continue current management per primary service. ?? Thank you for the opportunity to have participated in the care of this patient. Julissa Morris MD Regional Team pager [phone] * Camilla Carrera - 06/30/2019 12:02 PM EST Urology Inpatient Progress Note ID: Alize Gramajo is a 58 y.o. female with history of ASCVD (MD with Stent 2007, on plavix), DM2, HTN, [...] rosario food. Resident paged - redirected this machine sign writer to someone else on urology team. [...] spec had hemolyzed/ Lab contacted by this machine sign writer at [phone] and new specimen has [...] 58 y.o. female with history of ASCVD (MD with Stent 2007, on plavix), DM2, HTN, [...] Alize Gramajo 58 y.o. 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 Atherosclerosis of [place] coronary artery of q[place] heart with angina pectoris 10/09/2007 History of [...] 4 ??? fluticasone propionate (FLONASE) 50 mcg/actuation [place], Suspension 50 sprays by Each Nare route [...] Medina MD - 07/01/2019 3:45 PM EST [facility] Operative Note Patient Name: Alize Gramajo : [id number] MR#: [id number] Case Date: 06/28/2019 Surgeon: Surgeon(s) and Role: * Avila Medina MD - Primary * Juanpablo Helm MD - Resident Registered Nurse Employee Communications Intern: Felisha Sher RN Preoperative diagnosis: renal mass [...] Info Order Time SPECIMEN TO PATHOLOGY [id number] renal mass Left renal mass and fat [...] additional robotic ports were placed and an physician assistant surgery port, air seal was placed. Using sharp [...] Admission order reviewed. Primary Insurance on file: [employer] [facility] Secondary Insurance on file: N/A Primary care provider on file: Luis E Narayan MD [phone] Advance Directive on file and Code Status: <no information>, Full Code Patient???s Functional Status: Independent using front wheel walker Living Situation: Home with support of family and friends [address] [facility] [address] Supports:Family and friends Assessment: Patient with no apparent RNCM/SW needs at this time. No housing, transportation, insurance, resources concerns identified at this time. Supports in place to achieve a safe post-hospital transition. No identified barriers to accessing necessary care and/or follow-up after discharge. Plan: Patient to d/c to Home via car when medically ready. credit control manager/Load Dispatcher Local will continue to follow patient???s progress and remain available if situation changes for coordination of care, psychosocial support and/or discharge planning. Rani Emanuel RN Pager [phone] * Plan of Care - Allison Sánchez [...] coverage, correction doses administered/or held per [facility] order parameters in place. HR regular, lung [...] Operative Note Patient Name: Alizereinaldo Gramajo : [id number] MR#: [id number] Case Date: 06/28/2019 Surgeon: Surgeon(s) and Role: [...] Info Order Time SPECIMEN TO PATHOLOGY [id number] renal mass Left renal mass and fat [...] 05/01/2024 11:20 AM EDT Appointment Mammography/[place] [phone] Rodney Padilla MD 05/01/2024 1:45 PM EDT Office Visit [place] [phone] Juanpablo Hernandez MD [facility] [place] [address] 05/23/2024 2:45 PM EST Clinical Support Family Medicine at [facility] [address] [place] [address] Julia Low [facility] 01/30/2025 1:30 PM EDT Laboratory Appointment Lab at [facility] Hematology Oncology [address] [place] [address] 01/30/2025 3:[address] [place] [address] Arturo Cordero MD [facility] HEMATOLOGY [place] [address] 01/30/2025 4:15 PM EDT Office Visit Hematology and Oncology at [facility] [place] [address] Arturo Cordero MD [facility] [place] [address] documented as of this encounter Procedures Procedure [...] AM EST Renal mass Lap, Partial Nephrectomy (72966) 06/28/2019 8:39 AM EST Renal mass POCT GLUCOSE Routine 06/28/2019 8:17 AM EST documented in this encounter Results * Basic Metabolic Panel (non-fasting) (07/17/2019 9:47 AM EST) Glucose 131 65 - 199 mg/dL [facility] Comment:Diabetes: >=200 mg/d L plus symptoms Blood Urea Nitrogen 17 8 - 18 mg/dL [facility] Creatinine 0.84 0.70 - 1.20 mg/dL [facility] Sodium 140 135 - 145 mmol/L [facility] Potassium 4.5 3.5 - 5.0 mmol/L [facility] Comment: Please note: ??Patients with WBC >100,000 may have falsely elevated Potassium levels. ??For accurate Potassium quantification in these patients send serum separator tube (gold top) for subsequent determinations. ??Contact the Clinical Chemistry Laboratory if there are any questions. Chloride 102 98 - 107 mmol/L [facility] Carbon Dioxide 28 22 - 31 mmol/L [facility] Anion Gap 10 5 - 15 mmol/L [facility] Calcium 10.1 8.5 - 10.5 mg/dL [facility] Est Glomerular Filtration Rate 76 >=60 mL/min/1. 73 m?? [facility] Comment: The eGFR was calculated using the CKD-EPI equation. As with all creatinine based estimates of kidney function, eGFR values calculated with the CKD-EPI equation are not accurate in patients with acute kidney failure, extremes of body mass or the acutely ill. [email or web address] Love QC/[facility]kf eGFR 88 >=60 mL/min/1. 73 m?? [facility] Comment: The eGFR was calculated using the CKD-EPI equation. As with all creatinine based estimates of kidney function, eGFR values calculated with the CKD-EPI equation are not accurate in patients with acute kidney failure, extremes of body mass or the acutely ill. [email or web address] Blood specimen (specimen) 07/17/2019 9:47 AM EST 07/17/2019 9:56 AM EST Narrative Resulting Agency Comment Spec In Lab Avila Medina MD CHEMISTRY ORDERABLES [facility] [place] [address] * POCT Glucose (07/01/2019 12:01 PM EST) Glucose, POC 124 65 - 199 mg/dL [facility] Comment: Supplemental ranges: <140 mg/dL before meals <180 mg/dL all other times of the day Blood specimen (specimen) 07/01/2019 12:01 PM EST 07/01/2019 12:01 PM EST Avila Medina MD POINT OF CARE TEST O ULISES Performing Organization Address [facility] Co de Phone Number [facility] [place] [address] * POCT Glucose (07/01/2019 7:28 AM EST) Glucose, POC 123 65 - 199 mg/dL [facility] Comment: Supplemental ranges: <140 mg/dL before meals <180 mg/dL all other times of the day Blood specimen (specimen) 07/01/2019 7:28 AM EST 07/01/2019 7:28 AM EST Avila Medina MD POINT OF CARE TEST O ULISES Performing Organization Address [facility] Co de Phone Number [facility] [place] [address] * POCT Glucose (06/30/2019 7:41 PM EST) Glucose, POC 120 65 - 199 mg/dL [facility] Comment: Supplemental ranges: <140 mg/dL before meals <180 mg/dL all other times of the day Blood specimen (specimen) 06/30/2019 7:41 PM EST 06/30/2019 7:41 PM EST Avila Medina MD POINT OF CARE TEST Junior MONTGOMERY Performing Organization Address [facility] Co de Phone Number [facility] [place] [address] * POCT Glucose (06/30/2019 3:15 PM EST) Glucose, POC 131 65 - 199 mg/dL [facility] Comment: Supplemental ranges: <140 mg/dL before meals <180 mg/dL all other times of the day Blood specimen (specimen) 06/30/2019 3:15 PM EST 06/30/2019 3:15 PM EST Avila Medina MD POINT OF CARE TEST O RDERACELY Performing Organization Address [facility] de Phone Number [facility] [place] [address] * POCT Glucose (06/30/2019 11:52 AM EST) Glucose, POC 146 65 - 199 mg/dL [facility] Comment: Supplemental ranges: <140 mg/dL before meals <180 mg/dL all other times of the day Blood specimen (specimen) 06/30/2019 11:52 AM EST 06/30/2019 11:52 AM EST Avila Medina MD POINT OF CARE TEST O ULISES Performing Organization Address [facility] de Phone Number [facility] [place] [address] * POCT Glucose (06/30/2019 7:48 AM EST) Glucose, POC 131 65 - 199 mg/dL [facility] Comment: Supplemental ranges: <140 mg/dL before meals <180 mg/dL all other times of the day Blood specimen (specimen) 06/30/2019 7:48 AM EST 06/30/2019 7:48 AM EST Avila Medina MD POINT OF CARE TEST O ULISES Performing Organization Address [facility] de Phone Number [facility] [place] [address] * POCT Glucose (06/30/2019 3:26 AM EST) Glucose, POC 124 65 - 199 mg/dL [facility] Comment: Supplemental ranges: <140 mg/dL before meals <180 mg/dL all other times of the day Blood specimen (specimen) 06/30/2019 3:26 AM EST 06/30/2019 3:26 AM EST Avila Medina MD POINT OF CARE TEST O RDERABLES Performing Organization Address [facility] Co de Phone Number [facility] [place] [address] * POCT Glucose (06/29/2019 11:36 PM EST) Glucose, POC 153 65 - 199 mg/dL [facility] Comment: Supplemental ranges: <140 mg/dL before meals <180 mg/dL all other times of the day Blood specimen (specimen) 06/29/2019 11:36 PM EST 06/29/2019 11:36 PM EST Avila Medina MD POINT OF CARE TEST O RDERACELY Performing Organization Address [facility] Co de Phone Number [facility] [place] [address] * POCT Glucose (06/29/2019 3:36 PM EST) Glucose, POC 177 65 - 199 mg/dL [facility] Comment: Supplemental ranges: <140 mg/dL before meals <180 mg/dL all other times of the day Blood specimen (specimen) 06/29/2019 3:36 PM EST 06/29/2019 3:36 PM EST Avila Medina MD POINT OF CARE TEST O DENISEERACELY Performing Organization Address [facility] Co de Phone Number [facility] [place] [address] * POCT Glucose (06/29/2019 12:03 PM EST) Glucose, POC 138 65 - 199 mg/dL [facility] Comment: Supplemental ranges: <140 mg/dL before meals <180 mg/dL all other times of the day Blood specimen (specimen) 06/29/2019 12:03 PM EST 06/29/2019 12:03 PM EST Avila Medina MD POINT OF CARE TEST O RDERABLES Performing Organization Address [facility] de Phone Number [facility] [place] [address] * Creatinine Level Body Fluid YANDY Drain (06/29/2019 10:29 AM EST) Creatinine, Fluid 0.8 mg/dL [facility] Comment: No reference range is available for the specimen type submitted. ??The performance of this assay for the submitted type has not been validated and results should be interpreted accordingly and with regard to the patient's clinical status. Creat, Fld Type YANDY Drain [facility] YANDY Drain 06/29/2019 10:2 9 AM EST 06/29/2019 11:00 AM EST Narrative Resulting Agency Comment Spec In Lab Avila Medina MD BODY FLUIDS AND STOO LS ORDERABLES Performing Organization Address [facility] Phone Number [facility] [place] [address] * POCT Glucose (06/29/2019 6:53 AM EST) Pathologist [facility] Glucose, POC 129 65 - 199 mg/dL [facility] Comment: Supplemental ranges: <140 mg/dL before meals <180 mg/dL all other times of the day Blood specimen (specimen) 06/29/2019 6:53 AM EST 06/29/2019 6:53 AM EST Avila Medina MD POINT OF CARE TEST O RDERABLES Performing Organization Address [facility] Co de Phone Number [facility] [place] [address] * (ABNORMAL) Differential, Automated (06/29/2019 2:57 AM EST) Neutrophil % 73.6 % [facility] Neutrophil Absolute 7.96(H) 1.70 - 6.10 x10(3)/mc L [facility] Lymph % 15.1 % [facility] Lymphocytes Abs 1.6 0.9 - 3.2 x10(3)/mc L [facility] Monocyte % 9.2 % [facility] Monocyte Abs 1.0(H) 0.3 - 0.9 x10(3)/[facility] Eos % 1.2 % [facility] Eosinophils Abs 0.1 0.0 - 0.4 x10(3)/[facility] Basophil % 0.4 % [facility] Baso Absolute 0.0 0.0 - 0.1 x10(3)/[facility] Immature Gran % 0.50 % [facility] Comment: Immature granulocytes(IG's)percentage and absolute count will include metamyelocytes, myelocytes, and promyelocytes. Blood smears from CBCs yielding IG's will be scanned manually for concordance. If this scan disagrees with the automated IG or if promyelocytes are noted, a manual differential will be performed. Immature Gran Absolute 0.05(H) 0.00 - 0.04 x10(3)/[facility] Blood specimen (specimen) 06/29/2019 2:57 AM EST 06/29/2019 3:03 AM EST Narrative Resulting Agency Comment Spec In Lab Camilla Carrera MD HEMATOLOGY ORDERABLE S Performing Organization Address City/State/[facility] Co de Phone Number [facility] [place] [address] * (ABNORMAL) Hemogram (06/29/2019 2:57 AM EST) White Blood Cell 10.8(H) 4.0 - 9.5 x10(3)/[facility] Red Blood Cell 4.17 4.00 - 5.21 x10(6)/[facility] Hemoglobin 11.9 11.7 - 15.5 gm/dL [facility] Hematocrit 37.3 35.7 - 45.8 % [facility] Mean Cell Volume 89.4 82.6 - 94.4 fL [facility] Mean Cell Hemoglobin 28.5 27.1 - 32.0 pg [facility] Mean Cell Hemoglobin Concentration 31.9 31.7 - 35.0 gm/dL [facility] Platelet 277 145 - 357 x10(3)/mc L [facility] RDW Standard Deviation 47.2(H) 37.0 - 46.0 fL [facility] RDW coefficient of variation 14.4(H) 11.5 - 14.1 % [facility] Mean Platelet Volume 9.4 7.6 - 12.9 fL [facility] NRBC% auto 0.0 % [facility] NRBC Absolute 0.000 0.000 - 0.000 x10(3)/mc L [facility] Blood specimen (specimen) 06/29/2019 2:57 AM EST 06/29/2019 3:03 AM EST Narrative Resulting Agency Comment Spec In Lab Camilla Carrera MD HEMATOLOGY ORDERABLE S [facility] [place] [id number] * (ABNORMAL) BMP w/fasting Glucose (06/29/2019 2:57 AM EST) Glucose Fasting 116(H) 65 - 99 mg/dL [facility] Comment: ?Fasting* Glucose Interpretive [...] Urea Nitrogen 10 8 - 18 mg/dL [facility] Creatinine 0.82 0.70 - 1.20 mg/dL [facility] Sodium 144 135 - 145 mmol/L [facility] Potassium 4.2 3.5 - 5.0 mmol/L [facility] Comment: Please note: ??Patients with WBC >100,000 may have falsely elevated Potassium levels. ??For accurate Potassium quantification in these patients send serum separator tube (gold top) for subsequent determinations. ??Contact the Clinical Chemistry Laboratory if there are any questions. Chloride 107 98 - 107 mmol/L [facility] Carbon Dioxide 26 22 - 31 mmol/L [facility] Anion Gap 11 5 - 15 mmol/L [facility] Calcium 8.9 8.5 - 10.5 mg/dL [facility] Est Glomerular Filtration Rate 78 >=60 mL/min/1. 73 m?? [facility] Comment: The eGFR was calculated using the CKD-EPI equation. As with all creatinine based estimates of kidney function, eGFR values calculated with the CKD-EPI equation are not accurate in patients with acute kidney failure, extremes of body mass or the acutely ill. [email or web address] Love [email or web address] eGFR 91 >=60 mL/min/1. 73 m?? [facility] Comment: The eGFR was calculated using the CKD-EPI equation. As with all creatinine based estimates of kidney function, eGFR values calculated with the CKD-EPI equation are not accurate in patients with acute kidney failure, extremes of body mass or the acutely ill. [email or web address] Blood specimen (specimen) 06/29/2019 2:57 AM EST 06/29/2019 3:03 AM EST Narrative Resulting Agency Comment Spec In Lab Avila Medina MD CHEMISTRY ORDERABLES [facility] [place] [address] * POCT Glucose (06/28/2019 9:57 PM EST) Glucose, POC 148 65 - 199 mg/dL [facility] Comment: Supplemental ranges: <140 mg/dL before meals <180 mg/dL all other times of the day Blood specimen (specimen) 06/28/2019 9:57 PM EST 06/28/2019 9:57 PM EST Avila Medina MD POINT OF CARE TEST O ULISES Performing Organization Address [facility] Co de Phone Number [facility] [place] [address] * Creatinine Level Body Fluid YANDY Drain (06/28/2019 9:49 PM EST) Creatinine, Fluid 1.0 mg/dL [facility] Comment: No reference range is available for the specimen type submitted. ??The performance of this assay for the submitted type has not been validated and results should be interpreted accordingly and with regard to the patient's clinical status. Creat, Fld Type YANDY Drain [facility] YANDY Drain 06/28/2019 9:49 PM EST 06/28/2019 10:09 PM EST Narrative Resulting Agency Comment Spec In Lab Avila Medina MD BODY FLUIDS AND STOO LS ORDERABLES Performing Organization Address [facility] de Phone Number [facility] [place] [address] * POCT Glucose (06/28/2019 4:13 PM EST) Glucose, POC 116 65 - 199 mg/dL [facility] Comment: Supplemental ranges: <140 mg/dL before meals <180 mg/dL all other times of the day Blood specimen (specimen) 06/28/2019 4:13 PM EST 06/28/2019 4:13 PM EST Avila Medina MD POINT OF CARE TEST Junior MONTGOMERY Performing Organization Address [facility] Co de Phone Number [facility] [place] [address] * (ABNORMAL) BMP w/fasting Glucose (06/28/2019 2:30 PM EST) [facility] Signature Glucose Fasting 147(H) 65 - 99 mg/dL [facility] Comment: ?Fasting* Glucose Interpretive [...] Urea Nitrogen 10 8 - 18 mg/dL [facility] Creatinine 0.80 0.70 - 1.20 mg/dL [facility] Sodium 144 135 - 145 mmol/L [facility] Potassium 4.3 3.5 - 5.0 mmol/L [facility] Comment: Please note: ??Patients with WBC >100,000 may have falsely elevated Potassium levels. ??For accurate Potassium quantification in these patients send serum separator tube (gold top) for subsequent determinations. ??Contact the Clinical Chemistry Laboratory if there are any questions. Chloride 108(H) 98 - 107 mmol/L [facility] Carbon Dioxide 25 22 - 31 mmol/L [facility] Anion Gap 11 5 - 15 mmol/L [facility] Calcium 8.9 8.5 - 10.5 mg/dL [facility] Est Glomerular Filtration Rate 81 >=60 mL/min/1. 73 m?? [facility] Comment: The eGFR was calculated using the CKD-EPI equation. As with all creatinine based estimates of kidney function, eGFR values calculated with the CKD-EPI equation are not accurate in patients with acute kidney failure, extremes of body mass or the acutely ill. http://[employer]/DHMCnkf eGFR 94 >=60 mL/min/1. 73 m?? [facility] Comment: The eGFR was calculated using the CKD-EPI equation. As with all creatinine based estimates of kidney function, eGFR values calculated with the CKD-EPI equation are not accurate in patients with acute kidney failure, extremes of body mass or the acutely ill. http://[employer]/DHnkf Blood specimen (specimen) 06/28/2019 2:30 PM EST 06/28/2019 2:59 PM EST Narrative Resulting Agency Comment Spec In Lab Avila Medina MD CHEMISTRY ORDERABLES Performing Organization Address [facility] de Phone Number [facility] [place] [address] * Hemoglobin and Hematocrit, blood (06/28/2019 2:30 PM EST) Hemoglobin 12.5 11.7 - 15.5 gm/dL [facility] Hematocrit 37.8 35.7 - 45.8 % [facility] Blood specimen (specimen) 06/28/2019 2:30 PM EST 06/28/2019 2:59 PM EST Narrative Resulting Agency Comment Spec In Lab Avila Medina MD HEMATOLOGY ORDERABLE S Performing Organization Address [facility] Co de Phone Number [facility] [place] [address] * POCT Glucose (06/28/2019 2:05 PM EST) Glucose, POC 133 65 - 199 mg/dL [facility] Comment: Supplemental ranges: <140 mg/dL before meals <180 mg/dL all other times of the day Blood specimen (specimen) 06/28/2019 2:05 PM EST 06/28/2019 2:05 PM EST Avila Medina MD POINT OF CARE TEST O RDERACELY Performing Organization Address [facility] Co de Phone Number [facility] [place] [address] * Specimen to Pathology (06/28/2019 12:59 PM EST) AP Specimen 06/28/2019 12:5 9 PM EST 06/28/2019 12:59 PM EST Narrative [facility] - 06/28/2019 12:59 PM EST Specimen requisition ordered. ??Separate Pathology report to follow Avila Medina MD PATHOLOGY/CYTOLOGY O ULISES Performing Organization Address [facility] [place] [address] * Solid Tumor NGS Panel (06/28/2019 12:57 PM EST) Tissue specimen (specimen) 06/28/2019 12:57 PM EST 05/28/2020 1:28 PM EST Narrative Resulting Agency Comment Spec In Lab Avila Medina MD PATHOLOGY/CYTOLOGY O ULISES Performing Organization Address [facility] [place] [address] * Surgical Pathology Report (06/28/2019 12:57 PM EST) Pathologist [facility] Final Diagnosis [id number] ? Location: [facility]; [facility]; A The signing pathologist has (i) examined [...] Pierce MD Verified: ??07/04/2019 ?Pathologist Performed at: ??-[facility] Dept. of Pathology, [place], [place] DISCUSSION Whole slide scan: [id number] CLINICAL INFORMATION Specimen Submitted: A - [...] Inking: Parenchymal margin inked black. Sections/Processi ng: Senior Electrical Controls Engineer sections in 10 cassettes as follows: ?A1-A5: ??Tumor to closest margin ?A6: ??Tumor to fat ?A7-A8: ??Additional field representative tumor ?A9: ??Lesion to normal kidney ?A10: ??Normal kidney ??[facility] 07/04/2019 11:12 AM EST [facility] SPECIMEN FROM KIDNEY / Unknown 06/28/2019 12:57 PM EST 06/28/2019 12:57 PM EST Avila Medina MD PATHOLOGY/CYTOLOGY O RDERABLES [facility] [place] [address] * (ABNORMAL) BLOOD GAS 2 ARTERIAL (06/28/2019 11:13 AM EST) pH, Arterial 7.33(L) 7.35 - 7.45 [facility] PCO2, Arterial 51(H) 35 - 45 mmHg [facility] PO2, Arterial 198(H) 85 - 104 mmHg [facility] Bicarbonate, Arterial 26.8(H) 20.0 - 26.0 mmol/L [facility] Base Excess, Arterial 0.4 -3.0 - 3.0 mmol/L [facility] Hgb Blood Gas 13.4 11.7 - 15.5 gm/dL [facility] Oxyhemoglobin, Arterial 94.2 94.0 - 97.0 % [facility] Carboxyhemoglob in, Arterial 4.6 % [facility] Comment: Nonsmokers: 0.5-1.5% COHB Smokers: Variable, but usually less than 10% Toxic: 20-30% COHB Lethal: Greater than 60% COHB Methemoglobin, Arterial 0.3 <=1.5 % [facility] Na Whole Blood 140 135 - 145 mmol/L [facility] K Whole Blood 4.1 3.5 - 5.0 mmol/L [facility] Comment: Please note: Patients with WBC >100,000 may have falsely elevated Potassium levels. Contact the Clinical Chemistry Laboratory if there are any questions. ICa Whole Blood 1.18 1.15 - 1.33 mmol/L [facility] Comment: Note: ??Total bilirubin higher than 20 mg/dL may lead to falsely low ionized calcium. CL Whole Blood 108(H) 98 - 107 mmol/L [facility] Gluc Whole Bld 160 65 - 199 mg/dL [facility] Comment:Diabetes: >=200 mg/d L plus symptoms. Lactate WB 1.3 0.5 - 2.2 mmol/L [facility] FIO2 Art 56 % [facility] PF Ratio Art 354 [facility] Temp Art 35.3 Celsius [facility] Blood specimen (specimen) 06/28/2019 11:13 AM EST 06/28/2019 11:13 AM EST Avila Medina MD POINT OF CARE TEST O ULISES Performing Organization Address [facility] Co de Phone Number [facility] [place] [address] * POCT Glucose (06/28/2019 8:17 AM EST) Glucose, POC 146 65 - 199 mg/dL [facility] Comment: Supplemental ranges: <140 mg/dL before meals <180 mg/dL all other times of the day Blood specimen (specimen) 06/28/2019 8:17 AM EST 06/28/2019 8:17 AM EST Avila Medina MD POINT OF CARE TEST O ULISES [facility] [address] documented in this encounter Visit Diagnoses Diagnosis [...] on Mon06/29/19 at 2200, Until Discontinued, Routine 213 (Given - Provider: Nelson Tomlinson RN) 0533 (Given - Provider: Nelson Tomlinson RN)1344 (Given - Provider: Allison Sánchez, VEDA)2110 (Given - Provider: Nelson Tomlinson RN) 0532 (Given - Provider: Nelson Tomlinson RN)1429 (Given - Provider: Yue Moore, RN) [...] RN) 0925 (Given - Provider: Yue Moore, RN)1238 (Given - Provider: Yue Moore, RN) insulin [...] & shoulders) 810 (Given - Provider: Allison Sánhcez RN)2013 (Given - Provider: Nelson Tomlinson RN) [...] 101 (Patch Applied - Provider: Yue Moore, VEDA) [...] dose on Mon06/29/19 at 0900, Until Discontinued 101 (Given - Provider: Christine Wu RN) 0809 [...] Christine Wu, VEDA)2138 (Given - Provider: Nelson Tomlinson RN) 08 [...] Alize Bernard RN)0800 (Stopped - Provider: Christine Wu RN) PRN Medication Order 06/29/2019 06/30/2019 07/01/2019 albuterol [...] Christine Wu, VEDA)2146 (Given - Provider: Nelson Tomlinson RN) 0809 [...] RN) 1240 (See Alternative - Provider: Allison Sánchez RN) ondansetron (Zofran) tablet 4 mg(Linked Group [...] Mon06/28/19 at 1619, Until 07/01/19 at 1846, flush, Flush pertains to all [...] Routine documented in this encounter Care Teams Sock Liner Relationship Specialty Start Date End Date Luis E Narayan MD [facility] DR [address] [place] [address] PCP - General Family Medicine 03/26/19 01/19/22 documented as of this encounter
--- OUTSIDE RECORDS SUMMARY | 2024-04-15 15:59 | XMS_ITS | Encounter Summary ---
Author Organization [facility] Address [facility] [place] [address] Care Team Providers Care Canal Structure Operator Name Role Phone Luis E Narayan MD Primary Care Provider Encounter Details Date Type Department Care Team (Latest Contact Info) Description 06/27/2019 1:06 PM EST - 06/27/2019 11:59 PM [facility] Hospital Encounter XRay at [address] [place] [address] Avila Medina MD [facility] [place] [address] Renal mass Discharge Disposition: Home Social History [...] 04/09/2019 06/22/2020 fluticasone propionate (FLONASE) 50 mcg/actuation [place], Suspension 50 sprays by Each Nare route [...] 05/01/2024 11:20 AM EDT Appointment Mammography/[place] [address] Rodney Padilla MD 05/01/2024 1:45 PM EDT Office [place] [address] Juanpablo Hernandez MD [facility] [place] [address] 05/23/2024 2:45 PM EST Clinical Support Family Medicine at [place] [address] [place] [phone] Julia Low, [facility] 01/30/2025 1:30 PM EDT Laboratory Appointment Lab at [facility] Hematology Oncology [address] [place] [address] 01/30/2025 3:[address] [place] [address] Arturo Cordero MD [facility] DR HEMATOLOGY [place] [address] 01/30/2025 4:15 PM EDT Office Visit Hematology [place] [address] Arturo Cordero MD [facility] HEMATOLOGY [place] [address] documented as of this encounter Procedures Procedure [...] ureter documented in this encounter Care Teams Canal Structure Operator Relationship Specialty Start Date End Date Luis E Narayan MD [facility] [address] [address] PCP - General Family Medicine 03/26/19 01/19/22 documented as of this encounter
--- OUTSIDE RECORDS SUMMARY | 2024-04-15 15:59 | XMS_ITS | Encounter Summary ---
Author Organization [facility] [place] [address] Care Team Providers Care Director Group Sales Name Role Phone Luis E Narayan MD Primary Care Provider [phone] Encounter Details Date Type Department Care Team (Latest Contact Info) Description 07/17/2019 9:20 AM EST Laboratory Appointment Lab [address] [place] [phone] Renal mass, left Social History Tobacco Use [...] 05/01/2024 11:20 AM EDT Appointment Mammography/[place] [phone] Rodney Padilla MD 05/01/2024 1:45 PM EDT [place] [address] Juanpablo Hernandez MD [facility] [place] [address] 05/23/2024 2:45 PM EST Clinical Support Family Medicine at [facility] [address] [place] [address] Julia Low [facility] 01/30/2025 1:30 PM EDT Laboratory Appointment Lab at [facility] Hematology Oncology [address] [place] [address] 01/30/2025 3:[address] [place] [place] [phone] Arturo Cordero MD [facility] [place] [address] 01/30/2025 4:15 PM EDT Office Visit [place]ology [place] [phone] Arturo Cordero MD [facility] [place] [address] documented as of this encounter Procedures Procedure Name Priority Date/Time Associated Diagnosis Comments HC VENIPUNCTURE Routine 07/17/2019 9:47 AM EST Renal mass, left documented in this encounter Results * Basic Metabolic Panel (non-fasting) (07/17/2019 9:47 AM EST) Glucose 131 65 - 199 mg/dL [facility] Comment:Diabetes: >=200 mg/d L plus symptoms Blood Urea Nitrogen 17 8 - 18 mg/dL [facility] Creatinine 0.84 0.70 - 1.20 mg/dL [facility] Sodium 140 135 - 145 mmol/L [facility] Potassium 4.5 3.5 - 5.0 mmol/L [facility] Comment: Please note: ??Patients with WBC >100,000 may have falsely elevated Potassium levels. ??For accurate Potassium quantification in these patients send serum separator tube (gold top) for subsequent determinations. ??Contact the Clinical Chemistry Laboratory if there are any questions. Chloride 102 98 - 107 mmol/L [facility] Carbon Dioxide 28 22 - 31 mmol/L [facility] Anion Gap 10 5 - 15 mmol/L [facility] Calcium 10.1 8.5 - 10.5 mg/dL [facility] Est Glomerular Filtration Rate 76 >=60 mL/min/1. 73 m?? [facility] Comment: The eGFR was calculated using the CKD-EPI equation. As with all creatinine based estimates of kidney function, eGFR values calculated with the CKD-EPI equation are not accurate in patients with acute kidney failure, extremes of body mass or the acutely ill. http://[employer]/[facility] eGFR 88 >=60 mL/min/1. 73 m?? [facility] Comment: The eGFR was calculated using the CKD-EPI equation. As with all creatinine based estimates of kidney function, eGFR values calculated with the CKD-EPI equation are not accurate in patients with acute kidney failure, extremes of body mass or the acutely ill. http://[employer]/[facility] Blood specimen (specimen) 07/17/2019 9:47 AM EST 07/17/2019 9:56 AM EST Narrative Resulting Agency Comment Spec In Lab Avila Medina MD CHEMISTRY ORDERABLES [facility] [place] [address] documented in this encounter Visit Diagnoses Diagnosis Renal mass, left Unspecified disorder of kidney and ureter documented in this encounter Care Teams Director Group Sales Relationship Specialty Start Date End Date Luis E Narayan MD [facility] [address] [place] [address] PCP - General Family Medicine 03/26/19 01/19/22 documented as of this encounter
--- OUTSIDE RECORDS SUMMARY | 2024-04-15 15:59 | XMS_ITS | Encounter Summary ---
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 H/O heart artery stent Procedures Echocardiogram Transthoracic([facility]) Luis E Narayan MD [facility] [place] [address] [facility] [place] [address] Referral ID Status Reason Start Date Expiration Date V isits Requested Visits Authorized [id number] Closed Specialty Service Requested 06/25/2019 08/23/2019 1 1 Reason for Visit * Diagnostic Test (Routine) - Closed Specialty Diagnoses / Procedures Referred By Gonzalez kumari Referred To Contact Cardiology Diagnoses Peripheral edema 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 H/O heart artery stent Procedures Echocardiogram Transthoracic([facility]) Luis E Narayan MD [facility] [place] [address] [facility] [place] [address] Referral ID Status Reason Start Date Expiration Date V isits Requested Visits Authorized [id number] Closed Specialty Service Requested 06/25/2019 08/23/2019 1 1 Encounter Details Date Type Department Care Team (Latest Contact Info) Description 06/27/2019 10:19 AM EST - 06/27/2019 1:05 PM EST Hospital Encounter Non-In[place] [phone] Luis E Narayan MD [facility] DR [address] [place] [address] Peripheral edema; 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; H/O heart artery [...] 04/09/2019 06/22/2020 fluticasone propionate (FLONASE) 50 mcg/actuation [place], Suspension 50 sprays by Each Nare route [...] AM EDT Appointment Mammography/[place] [phone] Rodney Padilla MD 05/01/2024 1:45 PM EDT Office [place] [phone] Juanpablo Hernandez MD [facility] [place] [address] 05/23/2024 2:45 PM EST Clinical Support Family Medicine at [facility] [address] [place] [address] Julia Low, [facility] 01/30/2025 1:30 PM EDT Laboratory Appointment Lab at [facility] Hematology Oncology [address] [place] [address] 01/30/2025 3:[address] [place] [address] Arturo Cordero MD [facility] DR [place] [address] 01/30/2025 4:15 PM EDT Office Visit Hematology [place] [phone] Arturo Cordero MD [facility] DR [place] [address] documented as of this encounter Procedures Procedure Name Priority Date/Time Associated Diagnosis Comments ECHO COMPLETE Routine 06/27/2019 11:38 AM EST Peripheral edema 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 [id number] ?Sex: ?F ? Site Loc: ? [facility] ?Ht / Wt: ??158(cm)/101(kg) Pt. Loc: ?Echo Lab ?BSA: ?2.01 Study Date: ?? 06/27/2019 ?Pt. Type: Outpatient Tape: ? Referring: PIOTR Reading: Jeff Barraza ??([id number]) Industrial Sales Representative: Sumit Ratliff RDCS Diagnosis: *Edema, unspecified (R60.9) *Atherosclerotic heart disease of naknek coronary artery with unspecified angina pectoris (I25.119) [...] E-wave Vmax ?1 ?m/sec ? MV deceleration [id number] ?msec ? MV A-wave Vmax ?1 ?m/sec [...] ? Mid-Inferior ?Normal ? Mid-Inferoseptal ?Normal ? Harmon-Septal ? Normal ? Harmon-Anterior ? Normal ? Harmon-Lateral ?Normal ? Harmon-Inferior ? Normal ? Harmon-Tip ?Normal ? This report has been electronically signed by: Jeff Barraza MD ? 06/27/2019 11:51:50 Images reviewed and interpretation verified [facility] Cardiac Ultrasound Laboratory Procedure Note Jeff Barraza MD - 06/27/2019 Procedure: Transthoracic Echocardiogram Patient: JOSSELINE LOMAX(Age): 1960(58y) Med Rec#: [id number] Sex: F Site Loc: [facility] Ht / Wt: 158(cm)/101(kg) Pt. Loc: Echo Lab BSA: 2.01 Study Date: 06/27/2019 Pt. Type: Outpatient Tape: Referring: PIOTR Reading: Jeff Barraza ([id number]) Industrial Sales Representative: Sumit Ratliff [facility] Diagnosis: *Edema, unspecified (R60.9) *Atherosclerotic heart disease of naknek coronary artery with unspecified angina pectoris (I25.119) [...] MV E-wave Vmax 1 m/sec MV deceleration [id number] msec MV A-wave Vmax 1 m/sec MV [...] Normal Mid-Posterolateral Normal Mid-Inferior Normal Mid-Inferoseptal Normal Harmon-Septal Normal Harmon-Anterior Normal Harmon-Lateral Normal Harmon-Inferior Normal Harmon-Tip Normal This report has been electronically signed by: Jeff Barraza MD 06/27/2019 11:51:50 Images reviewed and interpretation verified [facility] Cardiac Ultrasound Laboratory Luis E Narayan MD ECHO ORDERABLES documented in this encounter Visit Diagnoses Diagnosis Peripheral edema Edema 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
--- OUTSIDE RECORDS SUMMARY | 2024-04-15 15:59 | XMS_ITS | Encounter Summary ---
Author Organization [facility] Address [facility] [place] [address] Care Team Providers Care Parts Picker Name Role Phone Luis E Narayan MD Primary Care Provider Reason for Referral * E-Consultation (Routine) - Specialty Diagnoses / Procedures Referred By Gonzalez kumari Referred To Contact Gynecology Diagnoses Abnormal cervical Papanicolaou smear, unspecified abnormal pap finding Family history of uterine cancer Procedures eConsult to Gynecology (Primary Care Use Only) Luis E Narayan MD [facility] [place] [address] Referral ID Status Reason Start Date Expiration Date V isits Requested Visits Authorized [id number] 07/25/2019 07/24/2020 1 1 Encounter Details Date Type Department Care Team (Late st Contact Info) Description 07/25/2019 Orders Only Family Medicine at [facility] [address] [address] Luis E Narayan MD [facility] [place] [address] Abnormal cervical Papanicolaou smear, unspecified abnormal pap [...] 05/01/2024 11:20 AM EDT Appointment Mammography/[place] [address] Rodney Padilla MD 05/01/2024 1:45 PM EDT Office [place] [phone] Juanpablo Hernandez MD [facility] [place] [address] 05/23/2024 2:45 PM [facility] Clinical Support Family Medicine at [place] [address] [place] [address] Julia Low, [facility] 01/30/2025 1:30 PM EDT Laboratory Appointment Lab at [facility] Hematology Oncology [address] [place] [address] 01/30/2025 3:[address] [place] [address] Arturo Cordero MD [facility] DR [place] [address] 01/30/2025 4:15 PM EDT Office Visit Hematology [place] [phone] Arturo Cordero MD [facility] DR [place] [address] documented as of this encounter Visit Diagnoses Diagnosis Abnormal cervical Papanicolaou smear, unspecified abnormal pap finding Family history of uterine cancer Family history of malignant neoplasm of genital organ, other documented in this encounter Care Teams Parts Picker Relationship Specialty Start Date End Date Luis E Narayan MD [facility] [address] [place] [address] PCP - General Family Medicine 03/26/19 01/19/22 documented as of this encounter
--- OUTSIDE RECORDS SUMMARY | 2024-04-15 15:59 | XMS_ITS | Encounter Summary ---
Author Organization [facility] [place] [address] Care Team Providers Care Car Wash Attendant Automatic Name Role Phone Luis E Narayan MD Primary Care Provider Reason for Visit * Reason Comments Procedure Encounter Details Date Type Department Care Team (Latest Contact Info) Description 07/25/2019 2:27 PM EST - 07/25/2019 11:59 PM EST Hospital Encounter [place] [address] Cognitive and behavioral changes Discharge Disposition: Home [...] 04/09/2019 06/22/2020 fluticasone propionate (FLONASE) 50 mcg/actuation Basin, Suspension 50 sprays by Each Nare route [...] DROWSY Pre-Procedure Diagnose(s): Cognitive and behavioral changes [facility] Department of Neurology Outpatient EEG Report Name [...] 4 ??? fluticasone propionate (FLONASE) 50 mcg/actuation [place], Suspension 50 sprays by Each Nare route [...] channel digitized electroencephalogram was performed in the [facility] Clinical Neurophysiology Laboratory. The 10/20 international system of electrode placement was used and bipolar and referential electrode montages were recorded. In addition to EEG the patient was monitored for EKGand lateral/vertical eye movements. Video was recorded during the session. The duration of the recording was 25 minutes. PHYSICIAN OFFICE NURSE'S REPORT: Performed by: SR Patient was not [...] Nathan Ortiz MD Clinical Neurophysiology Fellow Pager: [phone] 07/26/2019 Neurology Attending I have personally reviewed the EEG, and I agree with the details as written. The above report was formulated in discussion with me at the time of EEG reading, and I agree with it as documented. Nigel Garcia MD [place] [address] Pager: [phone], #[phone] Email: [email or web address] documented in this encounter Plan of Treatment Upcoming Encounters Date Type Department Care Team (Late st Contact Info) Description 05/01/2024 11:20 AM EDT Appointment Mammography/[place] [address] Rodney Padilla MD 05/01/2024 1:45 PM EDT Office [place] [address] Juanpablo Hernandez MD [facility] [place] [address] 05/23/2024 2:45 PM EST Clinical Support Family Medicine at [facility] [address] [place] [address] Julia Low, [facility] 01/30/2025 1:30 PM EDT Laboratory Appointment Lab at [facility] [place] [address] [place] [address] 01/30/2025 3:[address] [place] [address] Arturo Cordero MD [facility] DR H[place]AT[place] [address] 01/30/2025 4:15 PM EDT Office Visit Hematology [place] [phone] Arturo Cordero MD [facility] DR [place]EMATOLOG[place] [address] documented as of this encounter Procedures Procedure Name Priority Date/Time Associated Diagnosis Comments ZEEG AWAKE, ASLEEP, DROWSY Routine 07/25/2019 3:00 PM EST Cognitive and behavioral changes documented in this encounter Results * EEG awake, asleep, drowsy, routine (07/25/2019 3:00 PM EST) Narrative Nigel Garcia MD - 07/25/2019 3:00 PM EST Nigel Garcia MD ? 07/28/2019 10:[address] [facility] Department of Neurology Outpatient EEG Report Name [...] ? ? fluticasone propionate (FLONASE) 50 mcg/actuation [place], Suspension 50 sprays by Each Nare route [...] channel digitized electroencephalogram was performed in the [facility] Clinical Neurophysiology Laboratory. The 10/20 international system of electrode placement was used and bipolar and referential electrode montages were recorded. ??In addition to EEG the patient was monitored for EKG and lateral/vertical eye movements. Video was recorded during the session. The duration of the recording was 25 minutes. PHYSICIAN OFFICE NURSE'S REPORT: Performed by: SR Patient was not [...] Nathan Ortiz MD Clinical Neurophysiology Fellow Pager: [phone] 07/26/2019 Neurology Attending I have personally reviewed the EEG, and I agree with the details as written. ?? The above report was formulated in discussion with me at the time of EEG reading, and I agree with it as documented. Nigel Garcia MD [place] [address] Pager: [phone], #[phone] Email: Sumit Pineda MD NEUROLOGY ORDERABLES documented in this encounter Visit Diagnoses Diagnosis Cognitive and behavioral changes Other signs and symptoms involving cognition documented in this encounter Care Teams Car Wash Attendant Automatic Relationship Specialty Start Date End Date Luis E Narayan MD [facility] [address] [place] [address] PCP - General Family Medicine 03/26/19 01/19/22 documented as of this encounter
--- NOTE | 2024-04-15 16:00 | RT.EKG_ITS ---
APPROVED REPORT Exam: Resting ECG Reason for Exam: bradycardia Patient Location: E HR:86 bpm ECG Measurements Heart Rate 86 AXIS AK 216 P 23 QRSd 96 QRS 11 QT 374 T 13 QTc 400 Conclusion Sinus rhythm, rate 86 AK interval prolongued 216, no other interval abnormalities Unifocal PVCs No STEMI
--- NOTE | 2024-04-15 16:00 | DI.CT_ITS ---
Exam(s) CT ABDOMEN PELVIS W EXAM: CT ABDOMEN PELVIS W CLINICAL HISTORY: LLQ pain x 1 week. TECHNIQUE: Imaging Protocol: Axial computed tomography images with coronal and sagittal reformatted images were created and reviewed CONTRAST MATERIAL: Intravenous: Omnipaque 350 Contrast volume:100 ml Oral: / no COMPARISON: CT CT ABDOMEN PELVIS W from 03/04/2024 FINDINGS: ABDOMEN and PELVIS: Lung Bases: No acute findings. Liver: Mild Paddock steatosis. No suspicious mass. Gallbladder and biliary tract: No radiodense calculus. No biliary dilation. Pancreas: Normal density. No abnormal calcifications or inflammatory process. No evidence of mass. Spleen: Normal. Kidneys: Partial left nephrectomy. Calcification again noted at lower pole left kidney.. No radiode nse stones. No obstructive uropathy. No suspicious masses seen. Adrenal glands: No masses seen. Vasculature: Abdominal aorta non-dilated. Soft tissues: Small fat containing right inguinal hernia Bladder: No gross wall thickening. No calculi.No focal mass. Bowel: No obstruction. No bowel wall thickening. Appendix normal. Mild diverticulosis of the desce nding colon. Surrounding stranding involving the mid descending colon consistent with diverticulitis . No perforation or abscess. Peritoneal cavity: No ascites. No focal collection. No mesenteric inflammatory response. Bones: Unremarkable for age. Reproductive organs: Unremarkable. Lymph nodes: No pathologically enlarged lymph nodes. IMPRESSION:: Mild diverticulitis of the mid descending colon. RADIATION DOSE DELIVERED: Total DLP DATA REPOSITORY: All CT scans at this facility are submitted to the National Radiology Data Registry (NRDR) Dose Index Registry (DIR) with the [employer] (ACR). RADIATION OPTIMIZATION: All CT scans at this facility use at least one of these dose optimization te chniques: automated exposure control; mA and/or kV adjustment per patient size (includes targeted exa ms where dose is matched to clinical indication); or iterative reconstruction.
--- OUTSIDE RECORDS SUMMARY | 2024-04-15 16:00 | XMS_ITS | Encounter Summary ---
Author Organization [facility] [place] [address] Care Team Providers Care Residential Sales Consultant Name Role Phone Luis E Narayan MD Primary Care Provider Reason for Visit * Reason Onset Date Comments Questions 06/13/2019 Encounter Details Date Type Department Care Team (Late st Contact Info) Description 06/13/2019 Telephone Family Medicine at [facility] [address] [place] [address] George Lorenzo Questions Social History Tobacco Use [...] help schedule EEG. Please transfer back to supervisor fine grading, thank you. * Telephone Encounter - Shannon Ward RN - 06/24/2019 1:11 PM EST Voicemail msg left on identified phone to call clinic to discuss. Noted EEG ordered 05/02/19 and 05/10/19. Not scheduled yet. Note forwarded to supervisor fine grading to assist in scheduling. * Telephone Encounter [...] send - message: no Offered Appointment: n/a MA/Nurse/[place] contacted via: Message: y Call: n Pager: n documented in this encounter Plan of Treatment Upcoming Encounters Date Type Department Care Team (Late st Contact Info) Description 05/01/2024 11:20 AM EDT Appointment Mammography/[place] [address] Rodney Padilla MD 05/01/2024 1:45 PM EDT Office [place] [address] Juanpablo Hernandez MD [facility] [place] [address] 05/23/2024 2:45 PM EST Clinical Support Family Medicine at [facility] [address] [place] [address] Julia Low [facility] 01/30/2025 1:30 PM EDT Laboratory Appointment Lab at [facility] Hematology Oncology [address] [place] [address] 01/30/2025 3:[address] [place] [address] Arturo Cordero MD [facility] [place] [address] 01/30/2025 4:15 PM EDT Office Visit Hematology [place] [address] Arturo Cordero MD [facility] [place] [address] documented as of this encounter Visit Diagnoses Not on filedocumented in this encounter Care Teams Residential Sales Consultant Relationship Specialty Start Date End Date Luis E Narayan MD [facility] [address] [place] [address] PCP - General Family Medicine 03/26/19 01/19/22 documented as of this encounter
--- OUTSIDE RECORDS SUMMARY | 2024-04-15 16:00 | XMS_ITS | Encounter Summary ---
[place] [address] Care Team Providers Care Natural Resources Specialist Name Role Phone Luis E Narayan MD Primary Care Provider Encounter Details Date Type Department Care Team (Late st Contact Info) Description 05/03/2019 External Results Neurology at [place] [phone] Sumit Pineda MD [facility] [place] [address] Social History Tobacco Use Types Packs/Day Years [...] 11:20 AM EDT Appointment Mammography/[place] [address] Rodney Padilla MD 05/01/2024 1:45 PM EDT Office [place] [address] Juanpablo Hernandez MD [facility] [place] [address] 05/23/2024 2:45 PM EST Clinical Support Family Medicine at [facility] [address] [place] [address] Julia Low [facility] 01/30/2025 1:30 PM EDT Laboratory Appointment Lab at [facility] Hematology Oncology [address] [place] [address] [phone] 01/30/2025 3:[address] [place] [phone] Arturo Cordero MD [facility] [address] [place] [address] 01/30/2025 4:15 PM EDT Office Visit Hematology [place] [address] Arturo Cordero MD [facility] [address] [place] [address] documented as of this encounter Procedures Procedure Name Priority Date/Time Associated Diagnosis Comments EMG SCAN Routine 05/02/2019 documented in this encounter Results * Scan Doc: EMG (05/02/2019) Sumit Pineda MD MEDIA MGR SCAN EXT O RDR/RSLT documented in this encounter Visit Diagnoses Not on filedocumented in this encounter Care Teams Natural Resources Specialist Relationship Specialty Start Date End Date Luis E Narayan MD [facility] [address] [place] [address] PCP - General Family Medicine 03/26/19 01/19/22 documented as of this encounter
--- OUTSIDE RECORDS SUMMARY | 2024-04-15 16:00 | XMS_ITS | Encounter Summary ---
Author Organization [facility] [place] [address] Care Team Providers Care Concrete Mixer Name Role Phone Luis E Narayan MD Primary Care Provider [phone] Reason for Visit * Reason Onset Date Comments New Medication Request 06/13/2019 Encounter Details Date Type Department Care Team (Late st Contact Info) Description 06/13/2019 Telephone Family Medicine at [facility] [address] [place] [address] George Lorenzo New Medication Request Social History [...] Name & Location: [facility] - [address] Ask caller their first and last name and relationship to the patient: patient Best time to call back: any Ok to leave a message: yes Ok to send my- message: no ?? documented in this encounter Plan of Treatment Upcoming Encounters Date Type Department Care Team (Late st Contact Info) Description 05/01/2024 11:20 AM EDT Appointment Mammography/DXA at [place] [phone] Rodney Padilla MD 05/01/2024 1:45 PM EDT Office Visit Ophthalmology at [place] [phone] Juanpablo Hernandez MD [facility] [place] [address] 05/23/2024 2:45 PM EST Clinical Support Family Medicine at [facility] [address] [place] [address] Julia Low [facility] 01/30/2025 1:30 PM EDT Laboratory Appointment Lab at [facility] Hematology Oncology [address] [place] [address] 01/30/2025 3:[address] Scan at [place] [phone] Arturo Cordero MD [facility] HEMATOLOGY [place] [address] 01/30/2025 4:15 PM EDT Office Visit Hematology [place] [address] Arturo Cordero MD [facility] DR HEMATOLOGY [place] [address] documented as of this encounter Visit Diagnoses Not on filedocumented in this encounter Care Teams Concrete Mixer Relationship Specialty Start Date End Date Luis E Narayan MD [facility] DR [address]ALKER-FAMILY MEDICINE [place], [place] [phone] PCP - General Family Medicine 03/26/19 01/19/22 documented as of this encounter
--- OUTSIDE RECORDS SUMMARY | 2024-04-15 16:00 | XMS_ITS | Encounter Summary ---
Author Organization [facility] Address [facility] [place] [address] Care Team Providers Care Eyeglass Frame Truer Name Role Phone Luis E Narayan MD Primary Care Provider [phone] Encounter Details Date Type Department Care Team (Late st Contact Info) Description 05/09/2019 Orders Only Sleep Center at [facility] [address] [place] [address] Jhonny Morataya MD [facility] [place] [address] Social History Tobacco Use Types Packs/Day Years [...] Medical History: Diagnosis Date ??? Atherosclerosis of [place] coronary artery of [place] heart with angina pectoris 10/09/2007 History of [...] 05/01/2024 11:20 AM EDT Appointment Mammography[place] [address] Rodney Padilla MD 05/01/2024 1:45 PM EDT Office [place] [address] Juanpablo Hernandez MD [facility] [place] [place] [address] 05/23/2024 2:45 PM EST Clinical Support Family Medicine at [facility] [address] [place] [address] Julia Low, [facility] 01/30/2025 1:30 PM EDT Laboratory Appointment Lab [place] [facility] [place] [address] [place] [address] 01/30/2025 3:[address] [place] [address] Arturo Cordero MD [facility] [place] [address] 01/30/2025 4:15 PM EDT Office Visit Hematology [place] [address] Arturo Cordero MD [facility] [place] [address] documented as of this encounter Visit Diagnoses Not on filedocumented in this encounter Care Teams Eyeglass Frame Truer Relationship Specialty Start Date End Date Luis E Narayan MD [facility] [address] [place] [address] PCP - General Family Medicine 03/26/19 01/19/22 documented as of this encounter
--- OUTSIDE RECORDS SUMMARY | 2024-04-15 16:00 | XMS_ITS | Encounter Summary ---
[place] [address] Care Team Providers Care Die Storage Worker Name Role Phone Luis E Narayan MD Primary Care Provider Encounter Details Date Type Department Care Team (Late st Contact Info) Description 06/21/2019 11:40 AM EST Clinical [place] [address] Renal mass Social History Tobacco Use Types [...] AM EDT Appointment Mammography/DXA at [place] [phone] Rodney Padilla MD 05/01/2024 1:45 PM EDT Office Visit Ophthalmology at [place] [phone] Juanpablo Hernandez MD [facility] [place] [address] 05/23/2024 2:45 PM EST Clinical Support Family Medicine at [address] [phone] Julia Low, [facility] 01/30/2025 1:30 PM EDT Laboratory Appointment Lab at [facility] [place] Oncology [address] [place] [address] [phone] 01/30/2025 3:[address] [place] [address] Arturo Cordero MD [facility] [place] [address] 01/30/2025 4:15 PM EDT Office Visit Hematology [place] [phone] Arturo Cordero MD [facility] [address] [place] [address] documented as of this encounter [...] tract infection, submit a new specimen. (A) [facility] Urine specimen obtained by clean catch procedure (specimen) 06/21/2019 12:06 PM EST 06/21/2019 12:28 PM EST Narrative Resulting Agency Comment Spec In Lab Avila Medina MD MICROBIOLOGY - GENER AL ORDERABLES [facility] [place] [address] * ABORH Recheck Status (06/21/2019 12:02 PM EST) ABORH Recheck Order Order Placed [facility] ABORH Type Recheck Complete [facility] Blood specimen (specimen) 06/21/2019 12:02 PM EST 06/21/2019 12:09 PM EST Narrative Resulting Agency Comment Spec In Lab Avila Medina MD BLOOD BANK LAB ORDER SHYLA [facility] [place] [address] * Antibody screen (06/21/2019 12:02 PM EST) Ab Screen Interp Negative [facility] Expires at [id number] on: 07/01/2019 [facility] Blood specimen (specimen) 06/21/2019 12:02 PM EST 06/21/2019 12:09 PM EST Narrative Resulting Agency Comment Spec In Lab Avila Medina MD BLOOD BANK LAB ORDER SHYLA Performing Organization Address City/[facility]/ZIP Co de Phone Number [facility] [place] [address] * ABO/Rh Typing (06/21/2019 12:02 PM EST) ABORH Type O Pos [facility] Blood specimen (specimen) 06/21/2019 12:02 PM EST 06/21/2019 12:09 PM EST Narrative Resulting Agency Comment Spec In Lab Avila Medina MD BLOOD BANK LAB ORDER SHYLA Performing Organization Address City/[facility]/ZIP Co de Phone Number [facility] [place] [address] * (ABNORMAL) Differential, Automated (06/21/2019 12:02 PM EST) Neutrophil % 56.8 % [facility] Neutrophil Absolute 4.68 1.70 - 6.10 x10(3)/mc L [facility] Lymph % 30.3 % [facility] Lymphocytes Abs 2.5 0.9 - 3.2 x10(3)/ L [facility] Monocyte % 5.2 % [facility] Monocyte Abs 0.4 0.3 - 0.9 x10(3)/ L [facility] Eos % 6.6 % [facility] Eosinophils Abs 0.5(H) 0.0 - 0.4 x10(3)/[facility] Basophil % 0.7 % [facility] Baso Absolute 0.1 0.0 - 0.1 x10(3)/[facility] Immature Gran % 0.40 % [facility] Comment: Immature granulocytes(IG's)percentage and absolute count will include metamyelocytes, myelocytes, and promyelocytes. Blood smears from CBCs yielding IG's will be scanned manually for concordance. If this scan disagrees with the automated IG or if promyelocytes are noted, a manual differential will be performed. Immature Gran Absolute 0.03 0.00 - 0.04 x10(3)/ L [facility] Blood specimen (specimen) 06/21/2019 12:02 PM EST 06/21/2019 12:12 PM EST Narrative Resulting Agency Comment Spec In Lab Avila Medina MD HEMATOLOGY ORDERABLE S [facility] [place] [address] * (ABNORMAL) Hemogram (06/21/2019 12:02 PM EST) White Blood Cell 8.2 4.0 - 9.5 x10(3)/[facility] Red Blood Cell 4.64 4.00 - 5.21 x10(6)/[facility] Hemoglobin 13.2 11.7 - 15.5 gm/dL [facility] Hematocrit 41.2 35.7 - 45.8 % [facility] Mean Cell Volume 88.8 82.6 - 94.4 fL [facility] Mean Cell Hemoglobin 28.4 27.1 - 32.0 pg [facility] Mean Cell Hemoglobin Concentration 32.0 31.7 - 35.0 gm/dL [facility] Platelet 359(H) 145 - 357 x10(3)/mc L [facility] RDW Standard Deviation 45.2 37.0 - 46.0 fL [facility] RDW coefficient of variation 14.0 11.5 - 14.1 % [facility] Mean Platelet Volume 9.5 7.6 - 12.9 fL [facility] NRBC% auto 0.0 % [facility] NRBC Absolute 0.000 0.000 - 0.000 x10(3)/mc L [facility] Blood specimen (specimen) 06/21/2019 12:02 PM EST 06/21/2019 12:12 PM EST Narrative Resulting Agency Comment Spec In Lab Avila Medina MD HEMATOLOGY ORDERABLE S [facility] [place] [address] * (ABNORMAL) Comprehensive metabolic panel (non-fasting) (06/21/2019 12:02 PM EST) Glucose 205(H) 65 - 199 mg/dL [facility] Comment:Diabetes: >=200 mg/d L plus symptoms Blood Urea Nitrogen 22(H) 8 - 18 mg/dL [facility] Creatinine 0.90 0.70 - 1.20 mg/dL [facility] Sodium 138 135 - 145 mmol/L [facility] Potassium 4.2 3.5 - 5.0 mmol/L [facility] Comment: Please note: ??Patients with WBC >100,000 may have falsely elevated Potassium levels. ??For accurate Potassium quantification in these patients send serum separator tube (gold top) for subsequent determinations. ??Contact the Clinical Chemistry Laboratory if there are any questions. Chloride 100 98 - 107 mmol/L [facility] Carbon Dioxide 27 22 - 31 mmol/L [facility] Anion Gap 11 5 - 15 mmol/L [facility] Calcium 9.6 8.5 - 10.5 mg/dL [facility] Protein, Total 7.1 6.1 - 8.0 gm/dL [facility] Albumin 4.1 3.2 - 5.2 gm/dL [facility] Aspartate Aminotransferase 34(H) 0 - 30 unit/L [facility] Alanine Aminotransferase 31(H) 0 - 30 unit/L [facility] Alkaline Phosphatase 86 35 - 105 unit/L [facility] Bilirubin, Total 0.3 0.2 - 1.3 mg/dL [facility] Est Glomerular Filtration Rate 70 >=60 mL/min/1. 73 m?? [facility] Comment: The eGFR was calculated using the CKD-EPI equation. As with all creatinine based estimates of kidney function, eGFR values calculated with the CKD-EPI equation are not accurate in patients with acute kidney failure, extremes of body mass or the acutely ill. [email or web address]/DHMCnkf eGFR 81 >=60 mL/min/1. 73 m?? [facility] Comment: The eGFR was calculated using the CKD-EPI equation. As with all creatinine based estimates of kidney function, eGFR values calculated with the CKD-EPI equation are not accurate in patients with acute kidney failure, extremes of body mass or the acutely ill. http://[employer]/DHMCnkf Blood specimen (specimen) 06/21/2019 12:02 PM EST 06/21/2019 12:12 PM EST Narrative Resulting Agency Comment Spec In Lab Avila Medina MD CHEMISTRY ORDERABLES [facility] [place] [address] documented in this encounter Visit Diagnoses Diagnosis Renal mass Unspecified disorder of kidney and ureter documented in this encounter Care Teams Die Storage Worker Relationship Specialty Start Date End Date Luis E Narayan MD [facility] [address] [place] [address] PCP - General Family Medicine 03/26/19 01/19/22 documented as of this encounter
--- OUTSIDE RECORDS SUMMARY | 2024-04-15 16:00 | XMS_ITS | Encounter Summary ---
[place] [address] Care Team Providers Care Entry Level Marketing Representative Name Role Phone Luis E Narayan MD Primary Care Provider [phone]- [phone] Reason for Referral * Consultation (Routine) - Closed Specialty Diagnoses / Procedures Referred By Gonzalez kumari Referred To Contact Neurology Diagnoses Abnormal MRI of head Luis E Narayan MD [facility] DR LILI AZEVEDO[place] [address] [facility] Neurology [address] [place] [phone] Referral ID Status Reason Start Date Expiration Date V isits Requested Visits Authorized [id number] Closed Specialty Service Requested 03/28/2019 03/27/2020 1 1 Reason for Visit * Reason Onset Date Comments Results 03/28/2019 Encounter Details Date Type Department Care Team (Late st Contact Info) Description 03/28/2019 Telephone Family Medicine at [facility] [address] [place] [phone] Ally Palomo Results Social History Tobacco Use [...] EDT Is she wants to set up [facility], I can send her messages directly.... [...] relationship (if other than patient-full name): Alize Avila - patient Best time to call back: any Ok to leave a message: yes Ok to send - message MA/Nurse contacted via: Message: yes Call: no Pager: no documented in this encounter Plan of Treatment Upcoming Encounters Date Type Department Care Team (Late st Contact Info) Description 05/01/2024 11:20 AM EDT Appointment Mammography/[place] [address] Rodney Padilla MD 05/01/2024 1:45 PM EDT Office [place] [address] Juanpablo Hernandez MD [facility] [place] [address] 05/23/2024 2:45 PM EST Clinical Support Family Medicine at [facility] [address] [place] [address] Julia Low, [facility] 01/30/2025 1:30 PM EDT Laboratory Appointment Lab at [facility] Hematology Oncology [address] [place] [address] 01/30/2025 3:[address] [place] [address] Arturo Cordero MD [facility] DR HEMATOLOGY [place] [address] 01/30/2025 4:15 PM EDT Office Visit Hematology [place] [address] Arturo Cordero MD [facility] DR HEMATOLOGY [place] [address] Scheduled Referrals Name Type Priority Associated Diagnoses Orde r Schedule Referral to Neurology Outpatient Referral Routine Abnormal MRI of head Ordered: 03/28/2019 documented as of this encounter Visit Diagnoses Diagnosis Abnormal MRI of head Nonspecific (abnormal) findings on radiological and other examination of skull and head Atherosclerosis of ewiiaapaayp coronary artery of ewiia[place]ay[place] heart with angina pectoris documented in this encounter Care Teams Entry Level Marketing Representative Relationship Specialty Start Date End Date Luis E Narayan MD [facility] [address] [place] [address] PCP - General Family Medicine 03/26/19 01/19/22 documented as of this encounter
--- OUTSIDE RECORDS SUMMARY | 2024-04-15 16:00 | XMS_ITS | Encounter Summary ---
Author Organization [facility] [place] [address] Care Team Providers Care Circuit Clerk Name Role Phone Luis E Narayan MD Primary Care Provider Reason for Referral * Diagnostic Test (Routine) - Closed Specialty Diagnoses / Procedures Referred By Contac t Referred To Contact Radiology Diagnoses Adrenal mass, left Renal mass, left Procedures MRI Abdomen wwo Contrast (Generic) Avila Medina MD [facility] [place] [address] [place] [address] Referral ID Status Reason Start Date Expiration Date V isits Requested Visits Authorized [id number] Closed Specialty Service Requested 04/24/2019 06/22/2019 1 1 Reason for Visit * Diagnostic Test (Routine) - Closed Specialty Diagnoses / Procedures Referred By Contac t Referred To Contact Radiology Diagnoses Adrenal mass, left Renal mass, left Procedures MRI Abdomen wwo Contrast (Generic) Avila Medina MD [facility] [place] [address] [place] [address] Referral ID Status Reason Start Date Expiration Date V isits Requested Visits Authorized [id number] Closed Specialty Service Requested 04/24/2019 06/22/2019 1 1 Encounter Details Date Type Department Care Team (Latest Contact Info) Description 05/02/2019 2:50 PM EDT - 05/02/2019 11:59 PM EDT Hospital Encounter MRI [place] [address] Avila Medina MD [facility] [place] [address] Adrenal mass, left; Renal mass, left Discharge [...] 04/09/2019 06/21/2019 fluticasone propionate (FLONASE) 50 mcg/actuation [place], Suspension 50 sprays by Each Nare route [...] 05/01/2024 11:20 AM EDT Appointment Mammography/[place] [address] Rodney Padilla MD 05/01/2024 1:45 PM EDT Office [place] [address] Juanpablo Hernandez MD [facility] [place] [address] 05/23/2024 2:45 PM EST Clinical Support Family Medicine at [facility] [address] [place] [phone] Devante Julia Pelletier, [facility] 01/30/2025 1:30 PM EDT Laboratory Appointment Lab at [facility] Hematology Oncology [address] [place] [address] 01/30/2025 3:[address] [place] [address] Arturo Cordero MD [facility] DR HEMATOLOGY [place] [address] 01/30/2025 4:15 PM EDT Office Visit Hematology [place] [address] Arturo Cordero MD [facility] DR HEMATOLOGY [place] [address] documented as of this encounter Procedures Procedure [...] below. ? Electronically signed by: HIMANSHU Cuevas [facility] ([phone]), at 05/03/2019 9:33 AM Narrative 05/03/2019 9:33 [...] contact the number below. Avila Medina MD G MRI ORDERABLES documented in this encounter Visit [...] mLs documented in this encounter Care Teams Circuit Clerk Relationship Specialty Start Date End Date Luis E Narayan MD [facility] [place] [address] PCP - General Family Medicine 03/26/19 01/19/22 documented as of this encounter
--- OUTSIDE RECORDS SUMMARY | 2024-04-15 16:00 | XMS_ITS | Encounter Summary ---
[place] [address] Care Team Providers Care Kohinoor Operator Name Role Phone Luis E Narayan MD Primary Care Provider [phone]- [phone] Reason for Visit * Reason Onset Date Comments Referral 06/03/2019 Encounter Details Date Type Department Care Team (Late st Contact Info) Description 06/03/2019 Telephone Family Medicine at [facility] [address] [place] [address] Yue Kwok Referral Social History Tobacco Use [...] is requesting phone calls for this patient's Wet Char Conveyor Tender Pharmacist referral. documented in this encounter Plan of Treatment Upcoming Encounters Date Type Department Care Team (Late st Contact Info) Description 05/01/2024 11:20 AM EDT Appointment Mammography/[place] [address] Rodney Padilla MD 05/01/2024 1:45 PM EDT Office [place] [address] [facility] [place] [address] 05/23/2024 2:45 PM EST Clinical Support Family Medicine at [facility] [address] [place] [address] Julia Low, [facility] 01/30/2025 1:30 PM EDT Laboratory Appointment Lab at [facility] Hematology Oncology [address] [place] [address] 01/30/2025 3:[address] [place] [address] [facility] DR [place] [address] 01/30/2025 4:15 PM EDT Office Visit Hematology [place] [address] [facility] DR [place] [address] documented as of this encounter Visit Diagnoses Not on filedocumented in this encounter Care Teams Kohinoor Operator Relationship Specialty Start Date End Date Luis E Narayan MD [facility] DR [address]IL[address] [place] [address] PCP - General Family Medicine 03/26/19 01/19/22 documented as of this encounter
--- OUTSIDE RECORDS SUMMARY | 2024-04-15 16:00 | XMS_ITS | Encounter Summary ---
[place] [address] Care Team Providers Care Panel Machine Setter Name Role Phone Luis E Narayan MD Primary Care Provider Encounter Details Date Type Department Care Team (Late Contact Info) Description 04/30/2019 [place] [address] Ru Leon, RN Social History [...] 05/01/2024 11:20 AM EDT Appointment Mammography/[place] [address] Rodney Padilla MD 05/01/2024 1:45 PM EDT Office [place] [address] Juanpablo Hernandez MD [facility] [place] [address] 05/23/2024 2:45 PM EST Clinical Support Family Medicine at [facility] [address] [address] Julia Low, [facility] 01/30/2025 1:30 PM EDT Laboratory Appointment Lab at [facility] Hematology Oncology [address] [place] [address] 01/30/2025 3:[address] [place] [address] Arturo Cordero MD [facility] HEMATOLOGY [place] [address] 01/30/2025 4:15 PM EDT Office Visit Hematology [place] [address] Arturo Cordero MD [facility] DR HEMATOLOGY [place] [address] documented as of this encounter Visit Diagnoses Not on filedocumented in this encounter Care Teams Panel Machine Setter Relationship Specialty Start Date End Date Luis E Narayan MD [facility] DR LIL[address] AZEVED[place] [address] PCP - General Family Medicine 03/26/19 01/19/22 documented as of this encounter
--- OUTSIDE RECORDS SUMMARY | 2024-04-15 16:00 | XMS_ITS | Encounter Summary ---
Author Organization [facility] [place] [address] Care Team Providers Care Flatwork Assembler Name Role Phone Luis E Narayan MD Primary Care Provider [phone]- [phone] Reason for Visit * Consultation (Routine) - Closed Specialty Diagnoses / Procedures Referred By Gonzalez kumari Referred To Contact Endocrinology Diagnoses Type 2 diabetes mellitus with hyperglycemia, without long-term current use of insulin Luis E Narayan MD [facility] [address] [place] [address] [facility] [address] [place] [address] Referral ID Status Reason Start Date Expiration Date V isits Requested Visits Authorized [id number] Closed Consult, Test & Treat 05/10/2019 05/09/2020 1 1 Encounter Details Date Type Department Care Team (Late st Contact Info) Description 05/27/2019 4:00 PM EST Office [place] [address] [place] [address] Type 2 diabetes mellitus with hyperglycemia, without [...] Breakfast ideas that include more protein: -1/2 Northern Irish Muffin with 1 Tbsp peanut butter and apple slices from 1 whole apple. If apples are too hard to chew with dental issues sub 1/2 cup unsweetened apple sauce. -Anguillan yogurt or light yogurt that is 15 grams of carb or less per serving (look at total carbs) -store Blue Dot World chopper or CashStar tongan yogurt or light yogurt, Rene Storyko's TripleZero [...] his past year she was hospitalized at [facility] on given Prednisone. Her blood sugars were high due to the steroid medication and during the brief hospital stay she was given meal associated insulin. Otherwise she has not been on meal associated insulin. Also reports another hospital stay at [facility] where she was [...] cm Height in inches 5' 2.75 Weight (Northern Irish) 228 lbs 8 oz Weight (Metric) 103.6 [...] mouth daily. fluticasone propionate (FLONASE) 50 mcg/actuation [place], Suspension 50 sprays by Each Nare route [...] Breakfast ideas that include more protein: -1/2 Northern Irish Muffin with 1 Tbsp peanut butter and apple slices from 1 whole apple. If apples are too hard to chew with dental issues sub 1/2 cup unsweetened apple sauce. -Anguillan yogurt or light yogurt that is 15 grams of carb or less per serving (look at total carbs) -store Daqi roger chopper or CashStar tongan yogurt or light yogurt, Rene Story's TripleZero [...] 05/01/2024 11:20 AM EDT Appointment Mammography/DXA at [place] [phone] Rodney Padilla MD 05/01/2024 1:45 PM EDT Office Visit Ophthalmology at [place] [phone] Juanpablo Hernandez MD [facility] [place] [address] 05/23/2024 2:45 PM EST Clinical Support Family Medicine at [facility] [address] [place] [address] Julia Low [facility] 01/30/2025 1:30 PM EDT Laboratory Appointment Lab at [facility] Hematology Oncology [address] [place] [address] 01/30/2025 3:[address] [place] [address] Arturo Cordero MD [facility] [place] [address] 01/30/2025 4:15 PM EDT Office Visit Hematology [place] [address] Arturo Cordero MD [facility] [address] [place] [address] Scheduled Referrals Name Type Priority Associated Diagnoses Orde r Schedule Referral to Diabetic Education Outpatient Referral Routine Type 2 diabetes mellitus without long-term current use of insulin Ordered: 05/10/2019 documented as of this encounter Visit Diagnoses Diagnosis Type 2 diabetes mellitus with hyperglycemia, without long-term current use of insulin documented in this encounter Care Teams Flatwork Assembler Relationship Specialty Start Date End Date Luis E Narayan MD [facility] [address] [place] [address] PCP - General Family Medicine 03/26/19 01/19/22 documented as of this encounter
--- OUTSIDE RECORDS SUMMARY | 2024-04-15 16:00 | XMS_ITS | Encounter Summary ---
[place] [address] Care Team Providers Care Twx Operator Name Role Phone Luis E Narayan MD Primary Care Provider [phone] Encounter Details Date Type Department Care Team (Late Contact Info) Description 04/15/2019 [place] [address] Ru Leon, RN Social History [...] 05/01/2024 11:20 AM EDT Appointment Mammography/[place] [address] Rodney Padilla MD 05/01/2024 1:45 PM EDT [place] [address] Juanpablo Hernandez MD [facility] [place] [address] 05/23/2024 2:45 PM EST Clinical Support Family Medicine at [facility] [address] [place] [address] Julia Low, [facility] 01/30/2025 1:30 PM EDT Laboratory Appointment Lab at [facility] Hematology Oncology [address] [place] [address] 01/30/2025 3:[address] Scan at [place] [phone] Arturo Cordero MD [facility] HEMATOLOGY [place] [address] 01/30/2025 4:15 PM EDT Office Visit [place]ology [place] [address] Arturo Cordero MD [facility] DR [place] [address] documented as of this encounter Visit Diagnoses Not on filedocumented in this encounter Care Teams Twx Operator Relationship Specialty Start Date End Date Luis E Narayan MD [facility] DR [address] [place] [address] PCP - General Family Medicine 03/26/19 01/19/22 documented as of this encounter
--- OUTSIDE RECORDS SUMMARY | 2024-04-15 16:00 | XMS_ITS | Encounter Summary ---
Author Organization [facility] Address [place] [address] Care Team Providers Care Pie Filling Mixer Name Role Phone Luis E Narayan MD Primary Care Provider [phone] Reason for Visit * Consultation (Routine) - Closed Specialty Diagnoses / Procedures Referred By Gonzalez kumari Referred To Contact Primary Care Diagnoses Type 2 diabetes mellitus with hyperglycemia, without long-term current use of insulin Luis E Narayan MD [facility] DR [address] [place] [address] [facility] [place] [address] Referral ID Status Reason Start Date Expiration Date V isits Requested Visits Authorized [id number] Closed Specialty Service Requested 05/29/2019 05/28/2020 1 1 Encounter Details Date Type Department Care Team (Late st Contact Info) Description 06/04/2019 1:00 PM EST [place] [address] Julia Low, [facility] Social History Tobacco Use Types [...] 05/01/2024 11:20 AM EDT Appointment Mammography/[place] [address] Rodney Padilla MD 05/01/2024 1:45 PM EDT Office Visit Ophthalmology at [place] [phone] Juanpablo Hernandez MD [facility] [place] [address] 05/23/2024 2:45 PM EST Clinical Support Family Medicine at [facility] [address] [place] [address] Julia Low [facility] 01/30/2025 1:30 PM EDT Laboratory Appointment Lab at [facility] [place] Oncology [address] [place] [address] 01/30/2025 3:[address] [place] [place] [address] Arturo Cordero MD [facility] DR HEMATOLOGY [place] [address] 01/30/2025 4:15 PM EDT Office Visit [place]ology [place] [address] Arturo Cordero MD [facility] DR HEMATOLOGY [place] [address] Scheduled Referrals Name Type Priority Associated Diagnoses Orde r Schedule Referral to [facility] (Primary Care Use Only) Outpatient Referral Routine Type 2 diabetes mellitus without long-term current use of insulin Ordered: 05/29/2019 documented as of this encounter Visit Diagnoses Not on filedocumented in this encounter Care Teams Pie Filling Mixer Relationship Specialty Start Date End Date Luis E Narayan MD [facility] DR [address]IL[address] [place] [address] PCP - General Family Medicine 03/26/19 01/19/22 documented as of this encounter
--- OUTSIDE RECORDS SUMMARY | 2024-04-15 16:00 | XMS_ITS | Encounter Summary ---
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 [place] [address] [facility] [place] [address] Referral ID Status Reason Start Date Expiration Date V isits Requested Visits Authorized [id number] Closed Specialty Service Requested 06/25/2019 08/23/2019 1 1 Reason for Visit * Reason Comments Follow-up Encounter Details Date Type Department Care Team (Late st Contact Info) Description 06/21/2019 1:00 PM EST Office Visit Family Medicine at [facility] [address] [place] [address] Luis E Narayan MD 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; H/O heart artery [...] never scheduled 4) Cardiac - has hx SC, stent x4 - has been having worsening [...] Assessment/Plan 30 minutes of this 45 minute [id number] visit were spent in discussion on the following topics: Diagnoses and all orders for this visit: Type 2 diabetes mellitus without long-term current use of insulin, uncontrolled last HA1c check butsuspect repeat today will be much better - U Albumin/Cre Ratio - Hemoglobin A1c; Future; Expected date: 06/21/2019 Healthcare maintenance - HIV Screen, 4th Generation ([facility]/CGP/APD); Future; Expected date: 06/21/2019 - Hepatitis C Antibody; Future; Expected date: 06/21/2019 Peripheral edema, CAD, heart artery stent x4 LCX - Echocardiogram Transthoracic([facility]); Future; Expected date: 06/21/2019 Will try to get this prior to surgery 06/28. Bipolar affective disorder in remission - refill lamoTRIgine (LAMICTAL) 25 mg Tablet; Take 3 tablets by mouth daily. Will also have Monologist check on EEG. Neurology in Jul as scheduled. Follow up with me in 4-6 weeks. documented in this encounter Plan of Treatment Upcoming Encounters Date Type Department Care Team (Late st Contact Info) Description 05/01/2024 11:20 AM EDT Appointment Mammography/[place] [address] Rodney Padilla MD 05/01/2024 1:45 PM EDT Office [place] [phone] Juanpablo Hernandez MD [facility] [place] [address] 05/23/2024 2:45 PM EST Clinical Support Family Medicine at [place] [address] [place] [address] Julia Low, [facility] 01/30/2025 1:30 PM EDT Laboratory Appointment Lab at [facility] Hematology Oncology [address] [place] [address] 01/30/2025 3:[address] [place] [phone] Arturo Cordero MD [facility] DR HEMAT[place] [address] 01/30/2025 4:15 PM EDT Office Visit Hematology [place] [address] Arturo Cordero MD [facility] DR HEMATOLOGY [place] [address] documented as of this encounter Procedures Procedure [...] ?JOSSELINE Tran ?(Age): 1960(58y) Med Rec#: ? [id number] ?Sex: ?F ? Site Loc: ? [facility] ?Ht / Wt: ??158(cm)/101(kg) Pt. Loc: ?Echo Lab ?BSA: ?2.01 Study Date: ?? 06/27/2019 ?Pt. Type: Outpatient Tape: ? Referring: PIOTR Reading: Jeff Barraza ??([id number]) Museum Tour Guide: Sumit Ratliff MONET Diagnosis: *Edema, unspecified (R60.9) *Atherosclerotic heart disease of paskenta coronary artery with unspecified angina pectoris (I25.119) [...] E-wave Vmax ?1 ?m/sec ? MV deceleration dnmz698.5 ?msec ? MV A-wave Vmax ?1 ?m/sec [...] ? Mid-Inferior ?Normal ? Mid-Inferoseptal ?Normal ? [place]-Septal ? Normal ? [place]-Anterior ? Normal ? [place]-Lateral ?Normal ? [place]-Inferior ? Normal ? [place]-Tip ?Normal ? This report has been electronically signed by: Jeff Barraza MD ? 06/27/2019 11:51:50 Images reviewed and interpretation verified [facility] Cardiac Ultrasound Laboratory Procedure Note Jeff Barraza MD - 06/27/2019 Procedure: Transthoracic Echocardiogram Patient: JOSSELINE Tran DOB(Age): 1960(58y) Med Rec#: [id number] Sex: F Site Loc: [facility] Ht / Wt: 158(cm)/101(kg) Pt. Loc: Echo Lab BSA: 2.01 Study Date: 06/27/2019 Pt. Type: Outpatient Tape: Referring: PIOTR Reading: Jeff Barraza ([id number]) Museum Tour Guide: Sumit Ratliff [facility] Diagnosis: *Edema, unspecified (R60.9) *Atherosclerotic heart disease of pask[place] coronary artery with unspecified angina pectoris (I25.119) [...] MV E-wave Vmax 1 m/sec MV deceleration wiee502.5 msec MV A-wave Vmax 1 m/sec MV [...] Normal Mid-Posterolateral Normal Mid-Inferior Normal Mid-Inferoseptal Normal [place]-Septal Normal [place]-Anterior Normal [place]-Lateral Normal [place]-Inferior Normal [place]-Tip Normal This report has been electronically signed by: Jeff Barraza MD 06/27/2019 11:51:50 Images reviewed and interpretation verified [facility] Cardiac Ultrasound Laboratory Luis E Narayan MD ECHO ORDERABLES * (ABNORMAL) Hemoglobin A1c (06/21/2019 2:09 PM EST) Hemoglobin A1c 7.2(H) 4.3 - 5.6 % [facility] [...] 1, S67-74 Estimated Average Glucose 161 mg/dL [facility] Comment: eAG equivalents for HbA1c [...] into estimated average glucose values. ??Diabetes Care 2008:31(8):0653-3079. Blood specimen (specimen) 06/21/2019 2:09 PM EST 06/21/2019 5:58 PM EST Narrative Resulting Agency Comment Spec In Lab Luis E Narayan MD CHEMISTRY ORDERABLE S [facility] [place] [address] * Hepatitis C Antibody (06/21/2019 2:09 PM EST) Hepatitis C Antibody Negative Negative [facility] Blood specimen (specimen) 06/21/2019 2:09 PM EST 06/21/2019 6:01 PM EST Narrative Resulting Agency Comment Spec In Lab Luis E Narayan MD CHEMISTRY ORDERABLE S Performing Organization Address [facility] Co de Phone Number [facility] [place] [address] * HIV Screen, 4th Generation ([facility]/CGP/APD) (06/21/2019 2:09 PM EST) HIV Ab/Ag Screen [...] MD CHEMISTRY ORDERABLE S Performing Organization Address [facility] Co de Phone Number [facility] [place] [address] * Urine Hold (06/21/2019 1:30 PM EST) Hold, Urine Sample in lab. [facility] Urine specimen (specimen) Urine / Unknown 06/21/2019 1:30 PM EST 06/21/2019 4:25 PM EST Luis E Narayan MD URINE ORDERABLES Performing Organization Address [facility] Co de Phone Number [facility] [place] [address] * U Albumin/Cre Ratio (06/21/2019 1:30 PM [...] <3.0 mg/L [facility] Creatinine, Urine 82 mg/dL [facility] Urine specimen (specimen) 06/21/2019 1:30 PM EST 06/21/2019 4:27 PM EST Narrative Resulting Agency Comment Spec In Lab Luis E Narayan MD URINE ORDERABLES [facility] [place] [address] documented in this encounter Visit Diagnoses Diagnosis Type 2 diabetes mellitus without long-term current use of insulin Healthcare maintenance Routine general medical examination at a health care facility Peripheral edema Edema 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 DR [address] WALKER-FAMILY [place] [phone] PCP - General Family Medicine 03/26/19 01/19/22 documented as of this encounter
--- OUTSIDE RECORDS SUMMARY | 2024-04-15 16:00 | XMS_ITS | Encounter Summary ---
Author Organization [facility] [place] [address] Care Team Providers Care Poultry Offal Icer Name Role Phone Luis E Narayan MD Primary Care Provider Encounter Details Date Type Department Care Team (Late st Contact Info) Description 04/12/2019 [place] [address] Avila Medina MD [facility] [place] [address] Social History Tobacco Use Types Packs/Day Years [...] 05/01/2024 11:20 AM EDT Appointment Mammography/[place] [phone] Rodney Padilla MD 05/01/2024 1:45 PM EDT Office Visit Ophthalmology at [place] [phone] Juanpablo Hernandez MD [facility] [place] [address] 05/23/2024 2:45 PM EST Clinical Support Family Medicine at [place] [address] [place] [phone] Julia Low, [facility] 01/30/2025 1:30 PM EDT Laboratory Appointment Lab at [facility] Hematology Oncology [address] [place] [address] 01/30/2025 3:[address] [place] [address] Arturo Cordero MD [facility] DR HEMATOLOGY [place] [address] 01/30/2025 4:15 PM EDT Office Visit Hematology [place] [address] Arturo Cordero MD [facility] DR HEMATOLOGY [place] [address] documented as of this encounter Visit Diagnoses Not on filedocumented in this encounter Care Teams Poultry Offal Icer Relationship Specialty Start Date End Date Luis E Narayan MD [facility] DR LIL[address] [place] [address] PCP - General Family Medicine 03/26/19 01/19/22 documented as of this encounter
--- OUTSIDE RECORDS SUMMARY | 2024-04-15 16:00 | XMS_ITS | Encounter Summary ---
Author Organization [facility] Address [facility] [place] [address] Care Team Providers Care Dispatch Officer Name Role Phone Luis E Narayan MD Primary Care Provider Reason for Visit * Reason Onset Date Comments Other 04/18/2019 Encounter Details Date Type Department Care Team (Late st Contact Info) Description 04/18/2019 Telephone Family Medicine at [facility] [address] [place] [address] Shayy Emanuel Other Social History Tobacco Use [...] that the paperwork has been faxed to [phone]. Pt was pleased with this. * Telephone [...] leave a message: y-detailed Ok to send [facility] message: y Offered Appointment: MA/Nurse/Glass Setter contacted via: Message: y Call: n Pager: n documented in this encounter Plan of Treatment Upcoming Encounters Date Type Department Care Team (Late st Contact Info) Description 05/01/2024 11:20 AM EDT Appointment Mammography/DXA at [place] [phone] Rodney Padilla MD 05/01/2024 1:45 PM EDT Office Visit Ophthalmology at [place] [phone] Juanpablo Hernandez MD [facility] [place] [address] 05/23/2024 2:45 PM EST Clinical Support Family Medicine at [address] [phone] Julia Low, [facility] 01/30/2025 1:30 PM EDT Laboratory Appointment Lab at [facility] Hematology Oncology [address] [place] [address] 01/30/2025 3:[address] [place] [place] [address] Arturo Cordero MD [facility] [place] [address] 01/30/2025 4:15 PM EDT Office Visit [place]ematology [place] [address] Arturo Cordero MD [facility] [place] [address] documented as of this encounter Visit Diagnoses Not on filedocumented in this encounter Care Teams Dispatch Officer Relationship Specialty Start Date End Date Luis E Narayan MD [facility] [place] [address] PCP - General Family Medicine 03/26/19 01/19/22 documented as of this encounter
--- OUTSIDE RECORDS SUMMARY | 2024-04-15 16:00 | XMS_ITS | Encounter Summary ---
Author Organization [facility] [place] [address] Care Team Providers Care Pantry Goods Maker Name Role Phone Luis E Narayan MD Primary Care Provider Encounter Details Date Type Department Care Team (Late st Contact Info) Description 04/15/2019 Orders Only Urology at [place] [phone] Avila Medina MD [facility] [place] [address] Social History Tobacco Use Types Packs/Day Years [...] AM EDT Appointment Mammography/DXA at [place] [phone] Rodney Padilla MD 05/01/2024 1:45 PM EDT Office Visit Ophthalmology at [place] [phone] Juanpablo Hernandez MD [facility] OPHTHALMOLOGY [place], [place] [phone] 05/23/2024 2:45 PM EST Clinical Support [facility] at [facility] [address] [place] [phone] Julia Low, [facility] 01/30/2025 1:30 PM EDT Laboratory Appointment Lab at [facility] Hematology Oncology [address] [place] [address] 01/30/2025 3:[address] [place] [phone] Arturo Cordero MD [facility] [place] [address] 01/30/2025 4:15 PM EDT Office Visit Hematology [place] [phone] Arturo Cordero MD [facility] [place] [address] documented as of this encounter Visit Diagnoses Not on filedocumented in this encounter Care Teams Pantry Goods Maker Relationship Specialty Start Date End Date Luis E Narayan MD [facility] DR [address] [place] [address] PCP - General Family Medicine 03/26/19 01/19/22 documented as of this encounter
--- OUTSIDE RECORDS SUMMARY | 2024-04-15 16:00 | XMS_ITS | Encounter Summary ---
Author Organization [facility] [place] [address] Care Team Providers Care Chain Saw Driver Name Role Phone Luis E Narayan MD Primary Care Provider Reason for Referral * Consultation (Routine) - Specialty Diagnoses / Procedures Referred By Gonzalez kumari Referred To Contact Sleep Center Diagnoses TITO on CPAP Procedures PRG POLYSOM 6+ YRS SLEEP W 4+ ADDL ABHILASH Bonny Justin MD [address] [place] [address] [facility] Sleep Medicine [address] [place] [address] Referral ID Status Reason Start Date Expiration Date Visits Requested Visits Authorized [id number] Specialty Service Requested 04/09/2019 04/08/2020 1 1 Reason for Visit * Reason Comments Cognitive Decline NEW PATIENT Encounter Details Date Type Department Care Team (Late st Contact Info) Description 04/09/2019 3:00 PM EDT Office Visit Family Medicine at [facility] [address] [place] [address] Bonny Emanuel MD [address] [place] [address] Immunization due (Primary Dx); Altered mental status, unspecified altered mental status type; COPD, moderate; 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 She does accurately report that she had had days of persistent insomnia, eventually admitted for [facility] with disorientation, delirium, inappropriate speech. 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 50+ pack/ yr hx No alcohol One daughter who is a positive support Medications 04/09/19 0025 Medication Sig Taking? melatonin 5 mg Tablet [...] daily. Yes fluticasone propionate (FLONASE) 50 mcg/actuation [place], Suspension 50 sprays by Each Nare route [...] Symbicort PEFR 350 today 3. Atherosclerosis of tonawanda coronary artery of ton[place] heart with angina pectoris No evidence for unstable angina Simvastatin, metoprolol,ASA - Comprehensive metabolic panel (non-fasting) 4. Immunization due Interested/ agreeble to all today - FluLaval Quadrivalent vaccine, Preservative Free 3YRS+ - PNEUMOCOCCAL CONJUGATE VACCINE 13-VALENT - Tdap vaccine greater than or equal to 7yo IM 5. Other polyneuropathy Likely associated with T2DM, recurrent need for steroids - TSH [place] - Vitamin B12 - Methylmalonic acid, serum [...] 05/01/2024 11:20 AM EDT Appointment Mammography/[place] [address] Rodney Padilla MD 05/01/2024 1:45 PM EDT Office Visit Ophthalmology at [place] [phone] Juanpablo Hernandez MD [facility] [place] [address] 05/23/2024 2:45 PM EST Clinical Support Family Medicine at [address] [phone] Julia Low, [facility] 01/30/2025 1:30 PM EDT Laboratory Appointment Lab at [facility] [place] Oncology [address] [place] [address] 01/30/2025 3:[address] [place] [address] Arturo Cordero MD [facility] [place] [address] 01/30/2025 4:15 PM EDT Office Visit Hematology [place] [phone] Arturo Cordero MD [facility] [address] [place] [address] Scheduled Referrals Name Type Priority Associated Diagnoses [...] Routine 04/09/2019 5:02 PM EDT Atherosclerosis of ton[place] coronary artery of [place] heart with angina pectoris documented in this encounter Results * TSH [place] (04/09/2019 5:02 PM EDT) Thyroid Stimulating Hormone 3.57 0.27 - 4.20 mcIU/mL [facility] Blood specimen (specimen) 04/09/2019 5:02 PM EDT 04/09/2019 6:50 PM EDT Narrative Resulting Agency Comment Spec In Lab Bonny Emanuel MD CHEMISTRY ORDERABLES [facility] [place] [address] * Comprehensive metabolic panel (non-fasting) (04/09/2019 5:02 PM EDT) Glucose 99 65 - 199 mg/dL [facility] Comment:Diabetes: >=200 mg/d L plus symptoms Blood Urea Nitrogen 13 8 - 18 mg/dL [facility] Creatinine 0.81 0.70 - 1.20 mg/dL [facility] Sodium 143 135 - 145 mmol/L [facility] Potassium 4.1 3.5 - 5.0 mmol/L [facility] Comment: Please note: ??Patients with WBC >100,000 may have falsely elevated Potassium levels. ??For accurate Potassium quantification in these patients send serum separator tube (gold top) for subsequent determinations. ??Contact the Clinical Chemistry Laboratory if there are any questions. Chloride 101 98 - 107 mmol/L [facility] Carbon Dioxide 29 22 - 31 mmol/L [facility] Anion Gap 13 5 - 15 mmol/L [facility] Calcium 9.7 8.5 - 10.5 mg/dL [facility] Protein, Total 7.1 6.1 - 8.0 gm/dL [facility] Albumin 4.3 3.2 - 5.2 gm/dL [facility] Aspartate Aminotransferase 28 0 - 30 unit/L [facility] Alanine Aminotransferase 29 0 - 30 unit/L [facility] Alkaline Phosphatase 80 35 - 105 unit/L [facility] Bilirubin, Total 0.3 0.2 - 1.3 mg/dL [facility] Est Glomerular Filtration Rate 79 >=60 mL/min/1. 73 m?? [facility] Comment: The eGFR was calculated using the CKD-EPI equation. As with all creatinine based estimates of kidney function, eGFR values calculated with the CKD-EPI equation are not accurate in patients with acute kidney failure, extremes of body mass or the acutely ill. http://[employer]/DHMCnkf eGFR 92 >=60 mL/min/1. 73 m?? [facility] Comment: The eGFR was calculated using the CKD-EPI equation. As with all creatinine based estimates of kidney function, eGFR values calculated with the CKD-EPI equation are not accurate in patients with acute kidney failure, extremes of body mass or the acutely ill. http://[employer]/DHMCnkf Blood specimen (specimen) 04/09/2019 5:02 PM EDT 04/09/2019 6:50 PM EDT Narrative Resulting Agency Comment Spec In Lab Bonny Emanuel MD CHEMISTRY ORDERABLES [facility] [place] [address] * Vitamin B12 (04/09/2019 5:02 PM EDT) Vitamin B12 820 232 - 1,245 pg/mL [facility] Blood specimen (specimen) 04/09/2019 5:02 PM EDT 04/09/2019 6:50 PM EDT Narrative Resulting Agency Comment Spec In Lab Bonny Emanuel MD CHEMISTRY ORDERABLES Performing Organization Address [facility] Co de Phone Number [facility] [place] [address] * Methylmalonic acid, serum (04/09/2019 5:02 PM EDT) Methylmalonic Acid (NOVEMBER) 0.20 <=0.40 nmol/mL [facility] Comment: ADDITIONAL INFORMATION This test was developed and its performance characteristics determined by [facility] in a manner consistent with CLIA requirements. This test has not been cleared or approved by the U.S. Food and Drug Administration. Test Performed by: [facility] [place] [address] Risk Management Intern: Jose G Jefferson M.D. Ph.D.; CLIA# [id number] Blood specimen (specimen) 04/09/2019 5:02 PM EDT 04/10/2019 8:35 AM EDT Narrative Resulting Agency Comment Spec In Lab Bonny Emanuel MD LAB SEND OUT ORDERAB LES Performing Organization Address [facility] Co de Phone Number [facility] [place] [address] documented in this encounter Visit Diagnoses Diagnosis Immunization due- Primary Need for prophylactic vaccination and inoculation against unspecified single disease Altered mental status, unspecified altered mental status type COPD, moderate Chronic airway obstruction, not elsewhere classified 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
--- OUTSIDE RECORDS SUMMARY | 2024-04-15 16:00 | XMS_ITS | Encounter Summary ---
Author Organization [facility] [place] [address] Care Team Providers Care Pharmaceutical Sales Representative Name Role Phone Luis E Narayan MD Primary Care Provider Encounter Details Date Type Department Care Team (Late st Contact Info) Description 04/12/2019 Telephone Family Medicine at [facility] [address] [place] [address] Denisse López RN Social History Tobacco Use [...] about disability paperwork left at appointment, this securities underwriter will look for and follow up. [...] 05/01/2024 11:20 AM EDT Appointment Mammography/DXA at [place] [phone] Rodney Padilla MD 05/01/2024 1:45 PM EDT Office [place] [phone] Juanpablo Hernandez MD [facility] [place] [address] 05/23/2024 2:45 PM EST Clinical Support Family Medicine at [address] [address] Julia Low, [facility] 01/30/2025 1:30 PM EDT Laboratory Appointment Lab at [facility] Hematology Oncology [address] [place] [address] 01/30/2025 3:[address] [place] [address] Arturo Cordero MD [facility] HEMATOLOGY [place] [address] 01/30/2025 4:15 PM EDT Office Visit H[place] [address] Arturo Cordero MD [facility] HEMATOLOGY [place] [address] documented as of this encounter Visit Diagnoses Not on filedocumented in this encounter Care Teams Pharmaceutical Sales Representative Relationship Specialty Start Date End Date Luis E Narayan MD [facility] [address]-[place] [address] PCP - General Family Medicine 03/26/19 01/19/22 documented as of this encounter
--- OUTSIDE RECORDS SUMMARY | 2024-04-15 16:00 | XMS_ITS | Encounter Summary ---
Author Organization [facility] [place] [address] Care Team Providers Care Geophysical Party Chief Name Role Phone Luis E Narayan MD Primary Care Provider +1- [phone] Reason for Referral * Psychiatric (Routine) - Specialty Diagnoses / Procedures Referred By Gonzalez kumari Referred To Contact Psychiatry Diagnoses Cognitive and behavioral changes Procedures PRO NEUROPSYCHOLOGICAL TEST EVAL PHYS/QHP 1ST HOUR PRO NEUROPSYCHOLOGICAL TEST EVAL PHYS/QHP EA ADDL HR TC PSYCL/NRPSYCL CARTON MAKER 2+ TEST 1ST 30 MIN TC PSYCL/NRPSYCL CARTON MAKER 2+ TEST EA ADDL 30 MIN Amy Aguiar MD [facility] [place] [address] [facility] Psych Neuro [address] [place] [address] Referral ID Status Reason Start Date Expiration Date V isits Requested Visits Authorized [id number] Consult, Test & Treat 05/02/2019 05/01/2021 1 1 Reason for Visit * Consultation (Urgent) - Closed Specialty Diagnoses / Procedures Referred By Gonzalez kumari Referred To Contact Neurology Diagnoses Generalized weakness Elpidio Pinedo IV, MD [facility] [place] [address] [facility] Neurology [address] [place] [phone] Referral ID Status Reason Start Date Expiration Date V isits Requested Visits Authorized [id number] Closed Consult, Test & Treat 03/26/2019 03/25/2020 1 1 Encounter Details Date Type Department Care Team (Late st Contact Info) Description 05/02/2019 9:00 AM EDT Procedure [place] [phone] Sumit Pineda MD [facility] [place] [address] Amy Aguiar MD [facility] [place] [address] Cognitive and behavioral changes Social History Tobacco [...] sentences. Patient states she was taken to [facility] and it was initially thought that she is having a clot in her body and thus underwent echocardiograms, ultrasounds of her lower extremities and all were negative. 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 She states her [...] Medical History: Diagnosis Date ??? Atherosclerosis of [place] coronary artery of [place] heart with angina pectoris 10/09/2007 History of [...] 3 ??? fluticasone propionate (FLONASE) 50 mcg/actuation [place], Suspension 50 sprays by Each Nare route [...] and lateral aspects of feet Vibration via ALCOHOOT tuning fork (1-8): reduced at big toes [...] Edwin Aguiar MD Clinical Neurophysiology Fellow Pager: [phone] 05/02/2019 CC: Luis E Narayan MD, Luis [...] AM EDT Appointment Mammography/[place] [address] Rodney Padilla MD 05/01/2024 1:45 PM EDT Office [place] [phone] Juanpablo Hernandez MD [facility] OPHTHALMOLOGY [place] [id number] 05/23/2024 2:45 PM EST Clinical Support Family Medicine at [facility] [address] [place] [address] Julia Low, [facility] 01/30/2025 1:30 PM EDT Laboratory Appointment Lab at [facility] Hematology Oncology [address] [place] [address] 01/30/2025 3:[address] [place] [phone] Arturo Cordero MD [facility] [place] [address] 01/30/2025 4:15 PM EDT Office Visit Hematology [place] [phone] Arturo Cordero MD [facility] [place] [address] Scheduled Referrals Name Type Priority Associated Diagnoses Order Schedule Referral to Neuropsychology Outpatient Referral Routine Cognitive and behavioral changes Ordered: 05/02/2019 documented as of this encounter Results * EEG awake, asleep, drowsy, routine (07/25/2019 3:00 PM EST) Narrative Nigel Garcia MD - 07/25/2019 3:00 PM EST Nigel Garcia MD ? 07/28/2019 10:59 PM [facility] Department of Neurology Outpatient EEG Report Name of the Patient: ??Alize Gramajo Date of : ?1960 Date of Service: ?07/25/2019 Referring physician: ?[place] BRIEF HISTORY: Ailze Gramajo is a 58 y.o. year old [...] ? ? fluticasone propionate (FLONASE) 50 mcg/actuation [place], Suspension 50 sprays by Each Nare route [...] duration of the recording was 25 minutes. DISPATCH LEAD'S REPORT: Performed by: SR Patient was [...] Nathan Ortiz MD Clinical Neurophysiology Fellow Pager: [phone] 07/26/2019 Neurology Attending I have personally reviewed the EEG, and I agree with the details as written. ?? The above report was formulated in discussion with me at the time of EEG reading, and I agree with it as documented. Nigel Garcia MD Department of [place] [address] Pager: [phone], #[phone] Email: [email or web address] Sumit Pineda MD NEUROLOGY ORDERABLES * Vitamin B1, whole blood (05/02/2019 11:15 AM EDT) Pathologist [facility] Vit B1 Lvl Wb (NOVEMBER) 173 70 - 180 nmol/L [facility] Comment: ADDITIONAL INFORMATION This test was developed and its performance characteristics determined by [facility] in a manner consistent with CLIA requirements. This test has not been cleared or approved by the U.S. Food and Drug Administration. Test Performed by: [place] [address] Corporate Events Director: Jose G Jefferson M.D. Ph.D.; CLIA# [id number] Blood specimen (specimen) 05/02/2019 11:15 AM EDT 05/02/2019 1:43 PM EDT Narrative Resulting Agency Comment Spec In Lab Sumit Pineda MD LAB SEND OUT ORDERAB LES [facility] [place] [address] * Protein Electrophoresis, serum (05/02/2019 11:15 AM EDT) Total Prot Electrophoresis 6.5 6.1 - 8.0 gm/dL [facility] Albumin Electrophoresis 4.17 3.60 - 6.00 gm/dL [facility] Alpha 1 Globulin 0.19 0.10 - 0.30 gm/dL [facility] Alpha 2 Globulin 0.65 0.40 - 0.90 gm/dL [facility] Beta Globulin 0.71 0.50 - 1.00 gm/dL [facility] Gamma Globulin 0.79 0.50 - 1.30 gm/dL [facility] M1 Band None Detected None Detected [facility] Blood specimen (specimen) 05/02/2019 11:15 AM EDT 05/02/2019 11:24 AM EDT Narrative Resulting Agency Comment Spec In Lab Sumit Pineda MD CHEMISTRY ORDERABLES Performing Organization Address City/State/[facility] Co de Phone Number [facility] [place] [place] [address] documented in this encounter Visit Diagnoses Diagnosis Cognitive and behavioral changes Other signs and symptoms involving cognition Cognitive and behavioral changes Other signs and symptoms involving cognition documented in this encounter Care Teams Geophysical Party Chief Relationship Specialty Start Date End Date Luis E Narayan MD [facility] [address] [place] [address] PCP - General Family Medicine 03/26/19 01/19/22 documented as of this encounter
--- OUTSIDE RECORDS SUMMARY | 2024-04-15 16:00 | XMS_ITS | Encounter Summary ---
Author Organization [facility] [place] [address] Care Team Providers Care Employee Services Manager Name Role Phone Luis E Narayan MD Primary Care Provider Encounter Details Date Type Department Care Team (Late st Contact Info) Description 05/09/2019 Abstract Internal Medicine at [facility] [address] [place] [address] Arlene Palomo, GARBAGE COLLECTOR Social History Tobacco Use Types Packs/Day Years [...] 05/01/2024 11:20 AM EDT Appointment Mammography/[place] [phone] Rodney Padilla MD 05/01/2024 1:45 PM EDT Office [place] [address] Juanpablo Hernandez MD [facility] [place] [address] 05/23/2024 2:45 PM EST Clinical Support Family Medicine at [facility] [address] [place] [address] Julia Low [facility] 01/30/2025 1:30 PM EDT Laboratory Appointment Lab at [facility] Hematology Oncology [address] [place] [address] 01/30/2025 3:[address] [place] [address] Arturo Cordero MD [facility] DR HEMATOLOGY [place] [address] 01/30/2025 4:15 PM EDT Office Visit Hematology [place] [phone] Arturo Cordero MD [facility] DR HEMATOLOGY [place] [address] documented as of this encounter Visit Diagnoses Not on filedocumented in this encounter Care Teams Employee Services Manager Relationship Specialty Start Date End Date Luis E Narayan MD [facility] DR [address]-[place] [address] PCP - General Family Medicine 03/26/19 01/19/22 documented as of this encounter
--- OUTSIDE RECORDS SUMMARY | 2024-04-15 16:00 | XMS_ITS | Encounter Summary ---
Author Organization [facility] [place] [address] Care Team Providers Care Hard Candy Batch Mixer Name Role Phone Luis E Narayan MD Primary Care Provider Reason for Referral * Diagnostic Test (Routine) - Closed Specialty Diagnoses / Procedures Referred By Contac t Referred To Contact Radiology Diagnoses Adrenal mass, left Renal mass, left Procedures MRI Abdomen wwo Contrast (Generic) Avila Medina MD [facility] [place] [address] [place] [address] Referral ID Status Reason Start Date Expiration Date V isits Requested Visits Authorized [id number] Closed Specialty Service Requested 04/24/2019 06/22/2019 1 1 Reason for Visit * Consultation (Urgent) - Closed Specialty Diagnoses / Procedures Referred By Contac t Referred To Contact Urology Diagnoses Renal mass Elpidio Pinedo IV, MD [facility] DR [place] [address] [facility] [place] [address] Referral ID Status Reason Start Date Expiration Date V isits Requested Visits Authorized [id number] Closed Consult, Test & Treat 03/26/2019 03/25/2020 1 1 Encounter Details Date Type Department Care Team (Late st Contact Info) Description 04/11/2019 9:50 AM EDT Office Visit Hematology [place] [address] Avila Medina MD [facility] [place] [address] Adrenal mass, left; Renal mass, left Social [...] being w/u for a neurological condition ASCVD [place] with stents 11 years ago Type II [...] #1: 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 01/30/2025 1:30 PM EDT Laboratory Appointment Lab at [facility] Hematology Oncology [address] [place] [address] 01/30/2025 3:[address] [place] [address] Arturo Cordero MD [facility] DR HEMATOLOGY [place] [address] 01/30/2025 4:15 PM EDT Office Visit Hematology [place] [address] Arturo Cordero MD [facility] DR HEMATOLOGY [place] [address] documented as of this encounter Results * [...] below. ? Electronically signed by: Juanpablo Chris [facility] ([phone]), at 05/03/2019 9:33 AM Narrative 05/03/2019 9:33 [...] Electronically signed by: Juanpablo Chris [facility]([phone]), at 05/03/2019 9:33 AM Avila Medina MD IMG MRI ORDERABLES documented in this encounter Visit Diagnoses Diagnosis Adrenal mass, left Unspecified disorder of adrenal glands Renal mass, left Unspecified disorder of kidney and ureter Adrenal mass, left Unspecified disorder of adrenal glands Renal mass, left Unspecified disorder of kidney and ureter documented in this encounter Care Teams Hard Candy Batch Mixer Relationship Specialty Start Date End Date Luis E Narayan MD [facility] DR L[address] WALKER[place] [address] PCP - General Family Medicine 03/26/19 01/19/22 documented as of this encounter
--- OUTSIDE RECORDS SUMMARY | 2024-04-15 16:00 | XMS_ITS | Encounter Summary ---
Author Organization [facility] [place] [address] Care Team Providers Care Bit Grinder Name Role Phone Luis E Narayan MD Primary Care Provider +1- [phone] Encounter Details Date Type Department Care Team (Latest Contact Info) Description 05/27/2019 1:57 PM EST - 05/27/2019 11:59 PM EST Hospital Encounter Mammography/[place] [address] Luis E Narayan MD [facility] DR [address] WALKER-[place] [address] Healthcare maintenance Discharge Disposition: Home Social History [...] 04/09/2019 06/21/2019 fluticasone propionate (FLONASE) 50 mcg/actuation [place], Suspension 50 sprays by Each Nare route [...] AM EDT Appointment Mammography/[place] [address] Rodney Padilla MD 05/01/2024 1:45 PM EDT Office Visit Ophthalmology at [place] [phone] Juanpablo Hernandez MD [facility] [place] [address] 05/23/2024 2:45 PM EST Clinical Support Family Medicine at [facility] [address] [place] [address] Julia Low, [facility] 01/30/2025 1:30 PM EDT Laboratory Appointment Lab at [facility] Hematology Oncology [address] [place] [address] 01/30/2025 3:[address] [place] [address]1000 Arturo Cordero MD [facility] DR HEMATOLOGY [place] [address] 01/30/2025 4:15 PM EDT Office Visit Hematology [place] [address] Arturo Cordero MD [facility] DR HEMATOLOGY [place] [address] documented as of this encounter Procedures Procedure [...] facility documented in this encounter Care Teams Bit Grinder Relationship Specialty Start Date End Date Luis E Narayan MD [facility] [place] [address] PCP - General Family Medicine 03/26/19 01/19/22 documented as of this encounter
--- OUTSIDE RECORDS SUMMARY | 2024-04-15 16:00 | XMS_ITS | Encounter Summary ---
Author Organization [facility] [place] [address] Care Team Providers Care Fruit Packer Name Role Phone Luis E Narayan MD Primary Care Provider +1- [phone] Encounter Details Date Type Department Care Team (Latest Contact Info) Description 05/02/2019 10:55 AM EDT Laboratory Appointment Lab [place] [phone] Cognitive and behavioral changes Social History Tobacco [...] 05/01/2024 11:20 AM EDT Appointment Mammography/[place] [address] Rodney Padilla MD 05/01/2024 1:45 PM EDT Office [place] [address] Juanpablo Hernandez MD [facility] [place] [address] 05/23/2024 2:45 PM EST Clinical Support Family Medicine at [place] [facility] [address] [place] [address] Julia Low [facility] 01/30/2025 1:30 PM EDT Laboratory Appointment Lab at [facility] Hematology Oncology [address] [place] [address] 01/30/2025 3:[address] [place] [address] Arturo Cordero MD [facility] [place] [address] 01/30/2025 4:15 PM EDT Office Visit Hematology [place] [address] Arturo Cordero MD [facility] [place] [address] documented as of this encounter Procedures Procedure Name Priority Date/Time Associated Diagnosis Comments HC PCH THIAMIN LVL(VITAMIN B1) WB-ARIAS Routine 05/02/2019 11:15 AM EDT Cognitive and behavioral changes HC SERUM PROT. ELECTROPHORESIS Routine 05/02/2019 11:15 AM EDT Cognitive and behavioral changes documented in this encounter Results * Protein Electrophoresis, serum (05/02/2019 11:15 AM EDT) Total Prot Electrophoresis 6.5 6.1 - 8.0 gm/dL [facility] Albumin Electrophoresis 4.17 3.60 - 6.00 gm/dL [facility] Alpha 1 Globulin 0.19 0.10 - 0.30 gm/dL [facility] Alpha 2 Globulin 0.65 0.40 - 0.90 gm/dL [facility] Beta Globulin 0.71 0.50 - 1.00 gm/dL [facility] Gamma Globulin 0.79 0.50 - 1.30 gm/dL [facility] M1 Band None Detected None Detected [facility] Blood specimen (specimen) 05/02/2019 11:15 AM EDT 05/02/2019 11:24 AM EDT Narrative Resulting Agency Comment Spec In Lab Sumit Pineda MD CHEMISTRY ORDERABLES Performing Organization Address [facility] Co de Phone Number [facility] [place] [address] * Vitamin B1, whole blood (05/02/2019 11:15 AM EDT) Vit B1 Lvl Wb (NOVEMBER) 173 70 - 180 nmol/L [facility] Comment: ADDITIONAL INFORMATION This test was developed and its performance characteristics determined by [facility] in a manner consistent with CLIA requirements. This test has not been cleared or approved by the U.S. Food and Drug Administration. Test Performed by: [facility] [place] [address] Assistant Public Defender: Jose G Jefferson M.D. Ph.D.; CLIA# [id number] Blood specimen (specimen) 05/02/2019 11:15 AM EDT 05/02/2019 1:43 PM EDT Narrative Resulting Agency Comment Spec In Lab Sumit Pineda MD LAB SEND OUT ORDERAB LES Performing Organization Address [facility] Co de Phone Number [facility] [place] [address] documented in this encounter Visit Diagnoses Diagnosis Cognitive and behavioral changes Other signs and symptoms involving cognition documented in this encounter Care Teams Fruit Packer Relationship Specialty Start Date End Date Luis E Narayan MD [facility] [address] [address] PCP - General Family Medicine 03/26/19 01/19/22 documented as of this encounter
--- OUTSIDE RECORDS SUMMARY | 2024-04-15 16:00 | XMS_ITS | Encounter Summary ---
Author Organization [facility] [place] [address] Care Team Providers Care Circuit Board Assembler Name Role Phone Luis E Narayan MD Primary Care Provider [phone] Reason for Visit * Reason Onset Date Comments Follow-up Renal Mass 05/27/2019 Encounter Details Date Type Department Care Team (Late st Contact Info) Description 05/27/2019 3:20 PM EST [place] [address] Avila Medina MD [facility] [place] [address] Renal mass (Primary Dx) Social History Tobacco [...] or you can obtain it from the [facility] Same day program on the day of your preoperative visit. Please take only clear liquids by mouth from noon the day before surgery. Please take nothing by mouth from 2 hours before the time you have been told to report to the hospital. 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 but incomplete evaluation #2: Positive [...] being w/u for a neurological condition ASCVD IA with stents 11 years ago Type II [...] Cystic renal mass suspicious (Bosniak 3-4)for a [id number] renal cancer but incomplete evaluation #2: Positive [...] 05/01/2024 11:20 AM EDT Appointment Mammography/DXA at [place] [phone] Rodney Padilla MD 05/01/2024 1:45 PM EDT Office Visit Ophthalmology at [place] [phone] Juanpablo Hernandez MD [facility] [place] [address] 05/23/2024 2:45 PM EST Clinical Support Family Medicine at [place] [address] [place] [address] Julia Low [facility] 01/30/2025 1:30 PM EDT Laboratory Appointment Lab at [facility] Hematology Oncology [address] [place] [address] 01/30/2025 3:[address] [place] [phone] Arturo Cordero MD [facility] [place] [address] 01/30/2025 4:15 PM EDT Office Visit Hematology and Oncology at [facility] [place] [address] Arturo Cordero MD [facility] [place] [address] documented as of this encounter Procedures Procedure [...] tract infection, submit a new specimen. (A) [facility] Urine specimen obtained by clean catch procedure (specimen) 06/21/2019 12:06 PM EST 06/21/2019 12:28 PM EST Narrative Resulting Agency Comment Spec In Lab Avila Medina MD MICROBIOLOGY - GENER AL ORDERABLES [facility] [place] [address] * (ABNORMAL) Comprehensive metabolic panel (non-fasting) (06/21/2019 12:02 PM EST) Glucose 205(H) 65 - 199 mg/dL [facility] Comment:Diabetes: >=200 mg/d L plus symptoms Blood Urea Nitrogen 22(H) 8 - 18 mg/dL [facility] Creatinine 0.90 0.70 - 1.20 mg/dL [facility] Sodium 138 135 - 145 mmol/L [facility] Potassium 4.2 3.5 - 5.0 mmol/L [facility] Comment: Please note: ??Patients with WBC >100,000 may have falsely elevated Potassium levels. ??For accurate Potassium quantification in these patients send serum separator tube (gold top) for subsequent determinations. ??Contact the Clinical Chemistry Laboratory if there are any questions. Chloride 100 98 - 107 mmol/L [facility] Carbon Dioxide 27 22 - 31 mmol/L [facility] Anion Gap 11 5 - 15 mmol/L [facility] Calcium 9.6 8.5 - 10.5 mg/dL [facility] Protein, Total 7.1 6.1 - 8.0 gm/dL [facility] Albumin 4.1 3.2 - 5.2 gm/dL [facility] Aspartate Aminotransferase 34(H) 0 - 30 unit/L [facility] Alanine Aminotransferase 31(H) 0 - 30 unit/L [facility] Alkaline Phosphatase 86 35 - 105 unit/L [facility] Bilirubin, Total 0.3 0.2 - 1.3 mg/dL [facility] Est Glomerular Filtration Rate 70 >=60 mL/min/1. 73 m?? [facility] Comment: The eGFR was calculated using the CKD-EPI equation. As with all creatinine based estimates of kidney function, eGFR values calculated with the CKD-EPI equation are not accurate in patients with acute kidney failure, extremes of body mass or the acutely ill. [email or web address]/[facility] eGFR 81 >=60 mL/min/1. 73 m?? [facility] Comment: The eGFR was calculated using the CKD-EPI equation. As with all creatinine based estimates of kidney function, eGFR values calculated with the CKD-EPI equation are not accurate in patients with acute kidney failure, extremes of body mass or the acutely ill. [email or web address]/[facility]MONnkf Blood specimen (specimen) 06/21/2019 12:02 PM EST 06/21/2019 12:12 PM EST Narrative Resulting Agency Comment Spec In Lab Avila Medina MD CHEMISTRY ORDERABLES [facility] [place] [address] documented in this encounter Visit Diagnoses Diagnosis Renal mass- Primary Unspecified disorder of kidney and ureter Renal mass Unspecified disorder of kidney and ureter documented in this encounter Care Teams Circuit Board Assembler Relationship Specialty Start Date End Date Luis E Narayan MD [facility] DR LILI [place] [address] PCP - General Family Medicine 03/26/19 01/19/22 documented as of this encounter
--- OUTSIDE RECORDS SUMMARY | 2024-04-15 16:00 | XMS_ITS | Encounter Summary ---
Author Organization [facility] [place] [address] Care Team Providers Care Fish Hatchery Supervisor Name Role Phone Luis E Narayan MD Primary Care Provider [phone] Reason for Referral * Consultation (Routine) - Closed Specialty Diagnoses / Procedures Referred By Gonzalez kumari Referred To Contact Sleep Center Diagnoses TITO (obstructive sleep apnea) Procedures PRG POLYLSOM 6+ YRS SLEEP W CPAP W 4+ ADDL ABHILASH Jhonny Garrett MD [facility] [place] [address] [facility] Sleep Medicine [address] [place] [address] Referral ID Status Reason Start Date Expiration Date V isits Requested Visits Authorized [id number] Closed Test Only 08/02/2019 01/30/2020 1 1 Reason for Visit * Consultation (Routine) - Specialty Diagnoses / Procedures Referred By Contchrissy kumari Referred To Contact Sleep Center Diagnoses TITO on CPAP Procedures PRG POLYSOM 6+ YRS SLEEP W 4+ ADDL ABHILASH Bonny Justin MD [place] [address] [facility] Sleep Medicine [address] [place] [address] Referral ID Status Reason Start Date Expiration Date Visits Requested Visits Authorized [id number] Specialty Service Requested 04/09/2019 04/08/2020 1 1 Encounter Details Date Type Department Care Team (Late st Contact Info) Description 05/09/2019 8:30 AM EDT Office Visit Sleep Center at [facility] [address] [place] [address] Jhonny Morataya MD [facility] [place] [address] RLS (restless legs syndrome); TITO (obstructive sleep [...] -Dr Morataya will send a prescription to [facility] for a new CPAP and supplies. [...] drive. If you get sleepy while driving anchor tack puller and nap. You may resume driving once you feel alert. 12) Read No More Sleepless Nights by Mack Heaton PhD. 13) There are some on-line resources that do require a fee that can be of help. Two credible websites are as follows: http://www.Doctors Together.Oddslife https://www.sleepio.com An star used by the [place] is as follows: [employer] Mechanic documented in this encounter Progress Notes * [...] as she got lost getting to the [facility]. Sleep Medicine Summary: Sleep Medicine Consultation 02/18/10 [...] got sick in January - admitted to [facility]. She was admitted with possible pneumonia she [...] pm Lights out: she might like at [employer] for 10-20 min Latency: asleep quickly Awakenings: [...] total sleep time: deferred Questionnaires: Patient-reported scores: [facility] 05/09/2019 [place] [facility] 10 (High Risk) Insomnia Severity Index - Paper [place] of 10 Daytime Symptoms: Upon Awakening: she [...] during the illness over summer, she would anchor tack puller and nap Close calls related to [...] Diagnosis Code ??? 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 Altered [...] Medical History: Diagnosis Date ??? Atherosclerosis of koi coronary artery of koi [...] 3 ??? fluticasone propionate (FLONASE) 50 mcg/actuation [place], Suspension 50 sprays by Each Nare route [...] soda with lunch. Family: lives with a breakfast host but they have separate bedrooms ROS: CON: [...] Lateral leads Confirmed by MD Herminia, Jak ([id number]) on 02/15/2019 8:07:37 AM Assessment: Ms. Patience [...] results can be sent to them via [facility]. If a home care company is required the following home care company is requested: [facility] Recommendations: 1) Polysomnography in lab to titrate CPAP 2) Driving safety was reviewed with patient. If the patient feels too sleepy to drive he/she knows not to drive. If he/she becomes sleepy while driving he/she will anchor tack puller and nap. 3) Replacement CPAP and [...] 05/01/2024 11:20 AM EDT Appointment Mammography/[place] [address] Rodney Padilla MD 05/01/2024 1:45 PM EDT Office [place] [address] Juanpablo Hernandez MD [facility] [place] [address] 05/23/2024 2:45 PM EST Clinical Support Family Medicine at [facility] [address] [place] [address] Julia Low, [facility] 01/30/2025 1:30 PM EDT Laboratory Appointment Lab at [facility] Hematology Oncology [address] [place] [address] 01/30/2025 3:[address] [place] [address] Arturo Cordero MD [facility] [place] [address] 01/30/2025 4:15 PM EDT Office Visit Hematology [place] [address] Arturo Cordero MD [facility] DR [place] [address] Scheduled Referrals Name Type Priority Associated Diagnoses [...] EDT) Hemoglobin 13.5 11.7 - 15.5 gm/dL [facility] Blood specimen (specimen) 05/09/2019 10:19 AM EDT 05/09/2019 12:53 PM EDT Narrative Resulting Agency Comment Spec In Lab Jhonny Morataya MD HEMATOLOGY ORDERABLE S [facility] [place] [address] * Hematocrit (05/09/2019 10:19 AM EDT) Hematocrit 41.5 35.7 - 45.8 % [facility] Blood specimen (specimen) 05/09/2019 10:19 AM EDT 05/09/2019 12:53 PM EDT Narrative Resulting Agency Comment Spec In Lab Jhonny Morataya MD HEMATOLOGY ORDERABLE S [facility] [place] [address] * (ABNORMAL) Iron and TIBC (05/09/2019 10:19 AM EDT) Iron 46 30 - 150 mcg/dL [facility] TIBC 363 250 - 450 mcg/dL [facility] Iron Saturation 13(L) 20 - 50 % [facility] Blood specimen (specimen) 05/09/2019 10:19 AM EDT 05/09/2019 12:54 PM EDT Narrative Resulting Agency Comment Spec In Lab Jhonny Morataya MD CHEMISTRY ORDERABLES [facility] [place] [address] * Ferritin (05/09/2019 10:19 AM EDT) Ferritin 55 30 - 400 ng/mL [facility] Comment: Pediatric reference ranges not verified at [facility], interpret with caution. Reference ranges for females greater than 50 years of age approach values for men, i.e., 30-400 ng/mL. Blood specimen (specimen) 05/09/2019 10:19 AM EDT 05/09/2019 12:53 PM EDT Narrative Resulting Agency Comment Spec In Lab Jhonny Morataya MD CHEMISTRY ORDERABLES [facility] [place] [address] documented in this encounter Visit Diagnoses Diagnosis RLS (restless legs syndrome) Restless legs syndrome (RLS) TITO (obstructive sleep apnea) Obstructive sleep apnea (adult) (pediatric) Chronic insomnia Insomnia, unspecified documented in this encounter Care Teams Fish Hatchery Supervisor Relationship Specialty Start Date End Date Luis E Narayan MD [facility] [address] [facility] [place] [address] PCP - General Family Medicine 03/26/19 01/19/22 documented as of this encounter
--- OUTSIDE RECORDS SUMMARY | 2024-04-15 16:00 | XMS_ITS | Encounter Summary ---
[place] [address] Care Team Providers Care Cabin Supervisor Name Role Phone Luis E Narayan MD Primary Care Provider Encounter Details Date Type Department Care Team (Late Contact Info) Description 04/15/2019 [place] [address] Ru Leon, RN Social History [...] with Alize and she will got to [facility] for Metabolic lab testing. Orders faxed, dexamethazone ( 1 mg) Prescribed, and instructions mailed. All questions addressed at this time she will call withany further questions or concerns. documented in this encounter Plan of Treatment Upcoming Encounters Date Type Department Care Team (Late Contact Info) Description 05/01/2024 11:20 AM EDT Appointment Mammography/[place] [address] Rodney Padilla MD 05/01/2024 1:45 PM EDT Office Visit Ophthalmology at [place] [phone] Juanpablo Hernandez MD [facility] [place] [address] 05/23/2024 2:45 PM EST Clinical Support Family Medicine at [facility] [address] [place] [phone] Julia Low, [facility] 01/30/2025 1:30 PM EDT Laboratory Appointment Lab at [facility] Hematology Oncology [address] [place] [address] 01/30/2025 3:[address] [place] [address] Arturo Cordero MD [facility] DR [place] [address] 01/30/2025 4:15 PM EDT Office Visit Hematology [place] [address] Arturo Cordero MD [facility] DR HEMATOLOGY [place] [address] documented as of this encounter Visit Diagnoses Not on filedocumented in this encounter Care Teams Cabin Supervisor Relationship Specialty Start Date End Date Luis E Narayan MD [facility] DR [facility] [address] PCP - General Family Medicine 03/26/19 01/19/22 documented as of this encounter
--- OUTSIDE RECORDS SUMMARY | 2024-04-15 16:00 | XMS_ITS | Encounter Summary ---
Author Organization [facility] [place] [address] Care Team Providers Care Assistant Boiler Operator Name Role Phone Luis E Narayan MD Primary Care Provider [phone] Reason for Referral * Consultation (Routine) - Closed Specialty Diagnoses / Procedures Referred By Gonzalez kumari Referred To Contact Endocrinology Diagnoses Type 2 diabetes mellitus with hyperglycemia, without long-term current use of insulin Luis E Narayan MD [facility] [place] [address] [facility] Endocrinology [address] [place] [phone] Referral ID Status Reason Start Date Expiration Date V isits Requested Visits Authorized [id number] Closed Consult, Test & Treat 05/10/2019 05/09/2020 1 1 * Psychiatric (Routine) - Duplicate Referral Specialty Diagnoses / Procedures Referred By Gonzalez kumari Referred To Contact Psychiatry Diagnoses Altered mental status, unspecified altered mental status type Abnormal MRI of head Luis E Narayan MD [facility] [address] [facility] Psychiatry [address] [place] [phone] Referral ID Status Reason Start Date Expiration Date Visits Requested Visits Authorized [id number] Duplicate Referral Consult, Test & Treat 05/10/2019 05/09/2020 1 1 Reason for Visit * Reason Comments Follow-up Encounter Details Date Type Department Care Team (Late st Contact Info) Description 05/10/2019 1:00 PM EDT Office Visit Family Medicine at [facility] [address] [place] [phone] Luis E Narayan MD [facility] [place] [address] Altered mental status, unspecified altered mental status [...] some of the symptoms. She did see [facility] Neurology for nerve conduction [...] be part of cause of her neuropathy. [facility] Testing was negative for Lyme, Ehrlichia, babesia, [...] 05/01/2024 11:20 AM EDT Appointment Mammography/DXA at [place] [phone] Rodney Padilla MD 05/01/2024 1:45 PM EDT Office Visit Ophthalmology at [place] [phone] Juanpablo Hernandez MD [facility] [place] [address] 05/23/2024 2:45 PM EST Clinical Support Family Medicine at [facility] [address] [place] [address] Julia Low, [facility] 01/30/2025 1:30 PM EDT Laboratory Appointment Lab at [facility] Hematology Oncology [address] [place] [address] 01/30/2025 3:[address] Scan at [place] [phone] Arturo Cordero MD [facility] [place] [address] 01/30/2025 4:15 PM EDT Office Visit Hematology and Oncology at [facility] [place] [address] Arturo Cordero MD [facility] [place] [address] Scheduled Referrals Name Type Priority Associated Diagnoses [...] facility documented in this encounter Care Teams Assistant Boiler Operator Relationship Specialty Start Date End Date Luis E Narayan MD [facility] [address] [place] [address] PCP - General Family Medicine 03/26/19 01/19/22 documented as of this encounter
--- OUTSIDE RECORDS SUMMARY | 2024-04-15 16:01 | XMS_ITS | Encounter Summary ---
Author Organization [facility] Address [facility] [place] [address] Care Team Providers Care Traffic Controller Cable Name Role Phone Brenda Canchola MD Primary Care Provider [phone] Encounter Details Date Type Department Care Team (Late st Contact Info) Description 06/15/2010 2:35 PM EST Follow-[place] [address] Sterling Dubois MD [facility] [place] [address] Social History Tobacco Use Types Packs/Day Years [...] AM EDT Appointment Mammography/[place] [address] Rodney Padilla MD 05/01/2024 1:45 PM EDT Office [place] [phone] Juanpablo Hernandez MD [facility] [place] [address] 05/23/2024 2:45 PM EST Clinical Support Family Medicine at [facility] [address] [place] [phone] Julia Low, [facility] 01/30/2025 1:30 PM EDT Laboratory Appointment Lab at [facility] Hematology Oncology [address] [place] [address] 01/30/2025 3:[address] [place] [address] Arturo Cordero MD [facility] DR HEMATOLOGY [place] [address] 01/30/2025 4:15 PM EDT Office Visit Hematology [place] [address] Arturo Cordero MD [facility] DR HEMATOLOGY [place] [address] documented as of this encounter Visit Diagnoses Not on filedocumented in this encounter Care Teams Traffic Controller Cable Relationship Specialty Start Date End Date Brenda Canchola MD [address] [place] [address] PCP - General 06/01/10 03/25/19 documented as of this encounter
--- OUTSIDE RECORDS SUMMARY | 2024-04-15 16:01 | XMS_ITS | Encounter Summary ---
Author Organization [facility] [place] [address] Care Team Providers Care Cooling Tower Operator Name Role Phone Brenda Canchola MD Primary Care Provider [phone] Encounter Details Date Type Department Care Team (Late st Contact Info) Description 09/15/2011 Ancillary Procedure Radiology Library at [facility] [place] [phone] Luis E Narayan MD [facility] DR LILI [place] [address] Social History Tobacco Use Types Packs/Day Years [...] 11:20 AM EDT Appointment Mammography/[place] [phone] Rodney Padilla MD 05/01/2024 1:45 PM EDT Office [place] [phone] Juanpablo Hernandez MD [facility] [place] [address] 05/23/2024 2:45 PM EST Clinical Support Family Medicine at [facility] [address] [place] [address] Julia Low, [facility] 01/30/2025 1:30 PM EDT Laboratory Appointment Lab at [facility] Hematology Oncology [address] [place] [address] 01/30/2025 3:[address] [place] [phone] Arturo Cordero MD [facility] DR HEMATOLOGY [place] [address] 01/30/2025 4:15 PM EDT Office Visit Hematology [place] [address] Arturo Cordero MD [facility] DR [place]EMATOLOGY [place] [address] documented as of this encounter Procedures Procedure Name Priority Date/Time Associated Diagnosis Comments FILM LIBRARY STORAGE ONLY MAMMO Routine 09/15/2011 12:00 AM EST documented in this encounter Results * Film Library- Storage Only Mammo (09/15/2011 12:00 AM EST) Narrative [facility] - 05/24/2019 9:40 PM EST This exam is auto-finalizing. It's purpose is for storage only. LuisE Narayan MD IMG FILM LIBRARY OR DERABLES [place], [place] documented in this encounter Visit Diagnoses Not on filedocumented in this encounter Care Teams Cooling Tower Operator Relationship Specialty Start Date End Date Brenda Canchola MD [address] [place] [address] PCP - General 06/01/10 03/25/19 documented as of this encounter
--- OUTSIDE RECORDS SUMMARY | 2024-04-15 16:01 | XMS_ITS | Encounter Summary ---
[place] [address] Care Team Providers Care Splitter Head Name Role Phone Brenda Canchola MD Primary Care Provider Reason for Visit * Reason Comments Anxiety Encounter Details Date Type Department Care Team ([facility] st Contact Info) Description 02/14/2019 9:50 PM EDT - 02/15/2019 12:12 AM EDT [place] [address] Tony Monique MD [address] [place] [address] [place] [address] Anxiety Discharge Disposition: Home Social History Tobacco [...] 2.8 Basophils % Latest Units: % 0.6 Soraiad Gran Abs Latest Ref Range: 0.00 - [...] sent through Care Everywhere. * Anxiety Disorder (Algerian) * Generalized Anxiety Disorder: General Info (Algerian) documented in this encounter Medications at Time of Discharge Medication Sig Dispensed Refills Start Date End Date amLODIPine (NORVASC) 5 mg Tablet Take 5 mg by mouth daily. 4 02/12/2019 04/09/2019 simvastatin (ZOCOR) 10 mg Tablet Take 10 mg by mouth daily. 4 11/26/2018 04/09/2019 fluticasone propionate (FLONASE) 50 mcg/actuation [place], Suspension 50 sprays by Each Nare route [...] as recent psychogenic polydipsia with admission to [facility] and was discharged roughly 1 [...] with anxiety. Patient was recently admitted to [place] in mid-January with community acquired pneumonia. 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 She was discharged ~1wk ago. Patient reports that she has edema with bilateral lower extremity swelling, and that was her primary concern for coming into the emergency department tonight. She was also concerned because her home blood pressure monitor was not working. She had bilateral lower extremity swelling during her stay at [facility] last week. She was given [...] 05/01/2024 11:20 AM EDT Appointment Mammography/[place] [address] Rodney Padilla MD 05/01/2024 1:45 PM EDT Office [place] [address] Juanpablo Hernandez MD [facility] [place] [address] 05/23/2024 2:45 PM EST Clinical Support Family Medicine at [facility] [address] [place] [address] Julia Low [facility] 01/30/2025 1:30 PM EDT Laboratory Appointment Lab at [facility] Hematology Oncology [address] [place] [address] 01/30/2025 3:[address] [place] [address] Arutro Cordero MD [facility] DR [place] [address] 01/30/2025 4:15 PM EDT Office Visit Hematology [place] [address] Arturo Cordero MD [facility] DR [place] [address] documented as of this encounter Procedures Procedure [...] (02/14/2019 10:54 PM EDT) Plat estimate Normal [facility] RBC Morphology Normal [facility] Blood specimen (specimen) 02/14/2019 10:54 PM EDT 02/14/2019 11:09 PM EDT Narrative Resulting Agency Comment Spec In Lab Yahir Okeefe MD HEMATOLOGY ORDERABL ES Performing Organization Address [facility] Co de Phone Number [facility] [place] [address] * Gold Tube HOLD (02/14/2019 10:54 PM EDT) Gold Hold Sample in lab. [facility] Blood specimen (specimen) Venous Draw / Unknown 02/14/2019 10:54 PM EDT 02/14/2019 11:09 PM EDT Yahir Okeefe MD CHEMISTRY ORDERABLE S Performing Organization Address City/[facility]/ZIP Co de Phone Number [facility] [place] [address] * Blue Tube HOLD (02/14/2019 10:54 PM EDT) Blue Hold Sample in lab. [facility] Blood specimen (specimen) Venous Draw / Unknown 02/14/2019 10:54 PM EDT 02/14/2019 11:09 PM EDT Yahir Okeefe MD HEMATOLOGY ORDERABL ES Performing Organization Address City/[facility]/ZIP Co de Phone Number [facility] [place] [address] * Differential, Automated (02/14/2019 10:54 PM EDT) Pathologist [facility] Neutrophil % 52.0 % [facility] Neutrophil Absolute 3.75 1.70 - 6.10 x10(3)/[facility] Lymph % 35.2 % [facility] Lymphocytes Abs 2.5 0.9 - 3.2 x10(3)/[facility] Monocyte % 9.0 % [facility] Monocyte Abs 0.6 0.3 - 0.9 x10(3)/[facility] Eos % 2.8 % [facility] Eosinophils Abs 0.2 0.0 - 0.4 x10(3)/[facility] Basophil % 0.6 % [facility] Baso Absolute 0.0 0.0 - 0.1 x10(3)/[facility] Immature Gran % 0.40 % [facility] Comment: Immature granulocytes(IG's)percentage and absolute count will include metamyelocytes, myelocytes, and promyelocytes. Blood smears from CBCs yielding IG's will be scanned manually for concordance. If this scan disagrees with the automated IG or if promyelocytes are noted, a manual differential will be performed. Immature Gran Absolute 0.03 0.00 - 0.04 x10(3)/[facility] Blood specimen (specimen) 02/14/2019 10:54 PM EDT 02/14/2019 11:09 PM EDT Narrative Resulting Agency Comment Spec In Lab Yahir Okeefe MD HEMATOLOGY ORDERABL ES [facility] [place] [address] * (ABNORMAL) Hemogram (02/14/2019 10:54 PM EDT) [facility] White Blood Cell 7.2 4.0 - 9.5 x10(3)/[facility] Red Blood Cell 4.11 4.00 - 5.21 x10(6)/ L [facility] Hemoglobin 12.0 11.7 - 15.5 gm/dL [facility] Hematocrit 36.3 35.7 - 45.8 % [facility] Mean Cell Volume 88.3 82.6 - 94.4 fL [facility] Mean Cell Hemoglobin 29.2 27.1 - 32.0 pg [facility] Mean Cell Hemoglobin Concentration 33.1 31.7 - 35.0 gm/dL [facility] Platelet 366(H) 145 - 357 x10(3)/[facility] RDW Standard Deviation 45.5 37.0 - 46.0 [facility] RDW coefficient of variation 14.3(H) 11.5 - 14.1 % [facility] Mean Platelet Volume 8.6 7.6 - 12.9 [facility] NRBC% auto 0.0 % [facility] NRBC Absolute 0.000 0.000 - 0.000 x10(3)/[facility] Blood specimen (specimen) 02/14/2019 10:54 PM EDT 02/14/2019 11:09 PM EDT Narrative Resulting Agency Comment Spec In Lab Yahir Okeefe MD HEMATOLOGY ORDERABL ES [facility] [place] [address] * T4, free (02/14/2019 10:54 PM EDT) Free T4 1.00 0.93 - 1.70 ng/dL [facility] Blood specimen (specimen) 02/14/2019 10:54 PM EDT 02/14/2019 11:09 PM EDT Narrative Resulting Agency Comment Spec In Lab Tony Monique MD CHEMISTRY ORDERABLES [facility] [place] [address] * (ABNORMAL) TSH (02/14/2019 10:54 PM EDT) Thyroid Stimulating Hormone 4.60(H) 0.27 - 4.20 mcIU/mL [facility] Blood specimen (specimen) 02/14/2019 10:54 PM EDT 02/14/2019 11:09 PM EDT Narrative Resulting Agency Comment Spec In Lab Tony Monique MD CHEMISTRY ORDERABLES Performing Organization Address [facility]/ZIP Co de Phone Number [facility] [place] [address] * Basic Metabolic Panel (non-fasting) (02/14/2019 10:54 PM EDT) Pathologist [facility] Glucose 147 65 - 199 mg/dL [facility] Comment:Diabetes: >=200 mg/d L plus symptoms Blood Urea Nitrogen 11 8 - 18 mg/dL [facility] Creatinine 0.76 0.70 - 1.20 mg/dL [facility] Sodium 140 135 - 145 mmol/L [facility] Potassium 3.9 3.5 - 5.0 mmol/L [facility] [...] [facility] Calcium 9.2 8.5 - 10.5 mg/dL [facility] Est Glomerular Filtration Rate 86 >=60 mL/min/1. 73 m?? [facility] Comment: The eGFR was calculated using the CKD-EPI equation. As with all creatinine based estimates of kidney function, eGFR values calculated with the CKD-EPI equation are not accurate in patients with acute kidney failure, extremes of body mass or the acutely ill. [email or web address] eGFR 100 >=60 mL/min/1. 73 m?? [facility] Comment: The eGFR was calculated using the CKD-EPI equation. As with all creatinine based estimates of kidney function, eGFR values calculated with the CKD-EPI equation are not accurate in patients with acute kidney failure, extremes of body mass or the acutely ill. [email or web address] Blood specimen (specimen) 02/14/2019 10:54 PM EDT 02/14/2019 11:09 PM EDT Narrative Resulting Agency Comment Spec In Lab Tony Monique MD CHEMISTRY ORDERABLES Performing Organization Address City/[facility] Co de Phone Number [facility] [place] [address] * EKG 12 Lead (02/14/2019 10:28 PM EDT) Ventricular rate 70 BPM MUSE SYSTEM Atrial Rate 70 BPM MUSE SYSTEM P-R Interval 162 ms MUSE SYSTEM QRS Duration 90 ms MUSE SYSTEM Q-T Interval 386 ms MUSE SYSTEM QTC Calculated (Bezet) 416 ms MUSE SYSTEM Calculated P [place] 48 degrees MUSE SYSTEM Calculated R [place] 7 degrees MUSE SYSTEM Calculated T [place] 33 degrees MUSE SYSTEM INTERPRETATION Sinus rhythm with Premature atrial complexes with Aberrant conduction Otherwise normal ECG When compared with ECG of 19-OCT-2007 07:46, Aberrant conduction is now Present T wave inversion no longer evident in Lateral leads Confirmed by MD Herminia, Jak ([id number]) on 02/15/2019 8:07:37 AM MUSE SYSTEM 02/14/2019 10:2 8 PM EDT 02/15/2019 8:07 AM EDT Tony Monique MD ECG ORDERABLES Performing Organization Address City/[facility]/ZIP Co de Phone Number MUSE SYSTEM documented in this encounter Visit Diagnoses Diagnosis Anxiety Anxiety state, unspecified documented in this encounter Care Teams Splitter Head Relationship Specialty Start Date End Date Brenda Canchola MD [address] [place] [address] PCP - General 06/01/10 03/25/19 documented as of this encounter
--- OUTSIDE RECORDS SUMMARY | 2024-04-15 16:01 | XMS_ITS | Encounter Summary ---
Author Organization [facility] [place] [address] Care Team Providers Care Emt Name Role Phone Brenda Canchola MD Primary Care Provider [phone] Encounter Details Date Type Department Care Team (Late st Contact Info) Description 03/09/2016 Ancillary Procedure Radiology Library at [facility] [place] [address] Luis E Narayan MD [facility] DR LILI [place] [address] Social History Tobacco Use Types Packs/Day Years [...] 05/01/2024 11:20 AM EDT Appointment Mammography/[place] [address] Rodney Padilla MD 05/01/2024 1:45 PM EDT Office [place] [address] Juanpablo Hernandez MD [facility] [place] [address] 05/23/2024 2:45 PM EST Clinical Support Family Medicine at [facility] [address] [place] [address] Julia Low, [facility] 01/30/2025 1:30 PM EDT Laboratory Appointment Lab at [facility] Hemat[facility] Oncology [address] [place] [address] 01/30/2025 3:[address] [place] [address] Arturo Cordero MD [facility] DR [place] [address] 01/30/2025 4:15 PM EDT Office Visit Hematology [place] [address] Arturo Cordero MD [facility] DR [place] [address] documented as of this encounter Procedures Procedure Name Priority Date/Time Associated Diagnosis Comments FILM LIBRARY STORAGE ONLY MAMMO Routine 03/09/2016 12:00 AM EDT documented in this encounter Results * Film Library- Storage Only Mammo (03/09/2016 12:00 AM EDT) Narrative [facility] - 05/24/2019 9:39 PM EST This exam is auto-finalizing. It's purpose is for storage only. Luis E Narayan MD IMG FILM LIBRARY OR DERABLES [place], [place] documented in this encounter Visit Diagnoses Not on filedocumented in this encounter Care Teams Emt Relationship Specialty Start Date End Date Brenda Canchola MD [address] [place] [address] PCP - General 11/23/10 9/16/19 documented as of this encounter
--- OUTSIDE RECORDS SUMMARY | 2024-04-15 16:01 | XMS_ITS | Encounter Summary ---
Author Organization [facility] [place] [address] Care Team Providers Care Business Analyst Project Manager Name Role Phone Brenda Canchola MD Primary Care Provider [phone] Encounter Details Date Type Department Care Team (Late st Contact Info) Description 01/21/2019 Ancillary Procedure Radiology Library at [facility] [place] [address] Luis E Narayan MD [facility] DR LILI [facility] [address] Social History Tobacco Use Types Packs/Day Years [...] 05/01/2024 11:20 AM EDT Appointment Mammography/[place] [address] Rodney Padilla MD 05/01/2024 1:45 PM EDT Office [place] [address] Juanpablo Hernandez MD [facility] [place] [address] 05/23/2024 2:45 PM EST Clinical Support Family Medicine at [facility] [address] [place] [address] Julia Low, [facility] 01/30/2025 1:30 PM EDT Laboratory Appointment Lab at [facility] [place] Oncology [address] [place] [address] 01/30/2025 3:[address] [place] [address] Arturo Cordero MD [facility] DR [place]AT[place]Y [place] [address] 01/30/2025 4:15 PM EDT Office Visit Hematology [place] [address] Arturo Cordero MD [facility] DR [place]ATOLOGY [place] [address] documented as of this encounter Procedures Procedure Name Priority Date/Time Associated Diagnosis Comments FILM LIBRARY STORAGE ONLY DX CHEST Routine 01/21/2019 12:00 AM EDT documented in this encounter Results * Film Library- Storage Only DX Chest (01/21/2019 12:00 AM EDT) Narrative [facility] - 05/24/2019 9:38 PM EST This exam is auto-finalizing. It's purpose is for storage only. Luis E Narayan MD IMG FILM LIBRARY OR DERABLES [place], [place] documented in this encounter Visit Diagnoses Not on filedocumented in this encounter Care Teams Business Analyst Project Manager Relationship Specialty Start Date End Date Brenda Canchola MD [address] [place] [address] PCP - General 11/23/10 9/16/19 documented as of this encounter
--- OUTSIDE RECORDS SUMMARY | 2024-04-15 16:01 | XMS_ITS | Encounter Summary ---
Author Organization [facility] [place] [address] Care Team Providers Care Email Campaign Manager Name Role Phone Brenda Canchola MD Primary Care Provider Encounter Details Date Type Department Care Team (Late st Contact Info) Description 01/22/2019 Ancillary Procedure Radiology Library at [facility] [phone] Luis E Narayan MD [facility] DR LILI [place] [address] Social History Tobacco Use Types Packs/Day Years [...] 05/01/2024 11:20 AM EDT Appointment Mammography/[place] [address] Rodney Padilla MD 05/01/2024 1:45 PM EDT Office [place] [address] Juanpablo Hernandez MD [facility] [place] [address] 05/23/2024 2:45 PM EST Clinical Support Family Medicine at [facility] [address] [place] [address] Julia Low, [facility] 01/30/2025 1:30 PM EDT Laboratory Appointment Lab at [facility] [place] [address] [place] [address] 01/30/2025 3:[address] [place] [address]1000 Arturo Cordero MD [facility] DR HEMAT[place]Y [place] [address] 01/30/2025 4:15 PM EDT Office Visit Hematology [place] [address]1000 Arturo Cordero MD [facility] DR [place]EM[place]OLOGY [place] [address] documented as of this encounter Procedures Procedure Name Priority Date/Time Associated Diagnosis Comments FILM LIBRARY STORAGE ONLY DX CHEST STAT 01/22/2019 12:00 AM EDT documented in this encounter Results * Film Library- Storage Only DX Chest (01/22/2019 12:00 AM EDT) Narrative [facility] - 03/28/2019 10:59 AM EDT This exam is auto-finalizing. It's purpose is for storage only. Luis E Narayan MD IMG FILM LIBRARY OR DERABLES [place], [place] documented in this encounter Visit Diagnoses Not on filedocumented in this encounter Care Teams Email Campaign Manager Relationship Specialty Start Date End Date Brenda Canchola MD [address] [place] [address] PCP - General 06/01/10 03/25/19 documented as of this encounter
--- OUTSIDE RECORDS SUMMARY | 2024-04-15 16:01 | XMS_ITS | Encounter Summary ---
Author Organization [facility] [place] [address] Care Team Providers Care Animal Breeder Name Role Phone Brenda Canchola MD Primary Care Provider [phone] Encounter Details Date Type Department Care Team (Late st Contact Info) Description 07/14/2010 2:30 PM EST [place] [phone] Chuy Barbosa MD [facility] [place] [address] Discharge Disposition: Home Social History Tobacco Use [...] 05/01/2024 11:20 AM EDT Appointment Mammography/[place] [address]1000 Rodney Padilla MD 05/01/2024 1:45 PM EDT Office [place] [address]1000 Juanpablo Hernandez MD [facility] [place] [address] 05/23/2024 2:45 PM EST Clinical Support Family Medicine at [facility] [address] [place] [address] Julia Low, [facility] 01/30/2025 1:30 PM EDT Laboratory Appointment Lab at [facility] [place]emat[place] Oncology [address] [place] [address] 01/30/2025 3:[address] [place] [address] Arturo Cordero MD [facility] DR [place] [address] 01/30/2025 4:15 PM EDT Office Visit Hematology [place] [address]1000 Arturo Cordero MD [facility] DR [place] [address] documented as of this encounter Visit Diagnoses Not on filedocumented in this encounter Care Teams Animal Breeder Relationship Specialty Start Date End Date Brenda Canchola MD [address] [place] [address] PCP - General 06/01/10 03/25/19 documented as of this encounter
--- OUTSIDE RECORDS SUMMARY | 2024-04-15 16:01 | XMS_ITS | Encounter Summary ---
[place] [address] Care Team Providers Care Hardware Sales Assistant Name Role Phone Brenda Canchola MD Primary Care Provider [phone] Reason for Visit * Reason Comments Follow-up neurocognitive impai rment Encounter Details Date Type Department Care Team (Late st Contact Info) Description 10/14/2010 3:00 PM EDT [place] [address] Chuy Barbosa MD [facility] [place] [address] Forgetfulness (Primary Dx) Discharge Disposition: Home Social [...] 05/01/2024 11:20 AM EDT Appointment Mammography/DXA at [place] [phone] Rodney Padilla MD 05/01/2024 1:45 PM EDT Office Visit Ophthalmology at [place] [phone] Juanpablo Hernandez MD [facility] [place] [address] 05/23/2024 2:45 PM EST Clinical Support Family Medicine at [facility] [address] [place] [address] Julia Low, [facility] 01/30/2025 1:30 PM EDT Laboratory Appointment Lab at [facility] Hematology Oncology [address] [place] [address] 01/30/2025 3:[address] [place] [place] [address] Arturo Cordero MD [facility] DR [place] [address] 01/30/2025 4:15 PM EDT Office Visit [place]ology [place] [address] Arturo Cordero MD [facility] [address] [place] [address] documented as of this encounter Visit Diagnoses Diagnosis Forgetfulness- Primary Other general symptoms documented in this encounter Care Teams Hardware Sales Assistant Relationship Specialty Start Date End Date Brenda Canchola MD [address] [place] [address] PCP - General 06/01/10 03/25/19 documented as of this encounter
--- OUTSIDE RECORDS SUMMARY | 2024-04-15 16:01 | XMS_ITS | Encounter Summary ---
Author Organization [facility] Address [place] [id number] Care Team Providers Care Volunteer Fire Fighter Name Role Phone Luis E Narayan MD Primary Care Provider [phone] Reason for Referral * Consultation (Urgent) - Closed Specialty Diagnoses / Procedures Referred By Contac t Referred To Contact Urology Diagnoses Renal mass Elpidio Pinedo IV, MD [facility] [address] [place] [address] [facility] [place] [address] Referral ID Status Reason Start Date Expiration Date V isits Requested Visits Authorized [id number] Closed Consult, Test & Treat 03/26/2019 03/25/2020 1 1 * Consultation (Urgent) - Closed Specialty Diagnoses / Procedures Referred By Contac t Referred To Contact Neurology Diagnoses Generalized weakness Elpidio Pinedo IV, MD [facility] [place] [address] [facility] [address] [place] [address] Referral ID Status Reason Start Date Expiration Date V isits Requested Visits Authorized [id number] Closed Consult, Test & Treat 03/26/2019 03/25/2020 1 1 Reason for Visit * Reason Comments Edema Encounter Details Date Type Department Care Team (Late st Contact Info) Description 03/26/2019 8:40 PM EDT - 03/27/2019 2:36 AM EDT Emergency Emergency Department [facility] [place] [address] Avila Farnsworth MD [facility] [address] [place] [address] Generalized weakness; Other specified diabetes mellitus with diabetic neuropathy, unspecified whether exterminator helper insulin use; Renal mass Discharge Disposition: Home [...] 11/26/2018 04/09/2019 fluticasone propionate (FLONASE) 50 mcg/actuation [place], Suspension 50 sprays by Each Nare route [...] medical care so far. 01/23-01/27 admitted to [employer] [facility] [employer], discharged on prednisone taper and then sought care at [facility] where she had CT scans done [...] disposition. Elpidio Pinedo IV, MD Resident 03/26/19 [id number] Associated attestation - Avila Farnsworth MD - [...] 05/01/2024 11:20 AM EDT Appointment Mammography/[place] [address] Rodney Padilla MD 05/01/2024 1:45 PM EDT Office [place] [address] Juanpablo Hernandez MD [facility] [place] [address] 05/23/2024 2:45 PM EST Clinical Support Family Medicine at [facility] [address] [place] [address] Julia Low, [facility] 01/30/2025 1:30 PM EDT Laboratory Appointment Lab at [facility] Hematology Oncology [address] [place] [address] 01/30/2025 3:[address] [place] [address] Arturo Cordero MD [facility] DR HEMATOLOGY [place] [address] 01/30/2025 4:15 PM EDT Office Visit Hematology [place] [address] Arturo Cordero MD [facility] HEMATOLOGY [place] [address] Scheduled Referrals Name Type Priority Associated Diagnoses [...] contact the number below. Electronically signed by: Diana Ratliff [facility]([phone]), at 03/27/2019 3:48 AM Vaughn Boone MD IMG MRI ORDERABLES * Ethanol Level (03/26/2019 10:10 PM EDT) Ethanol <100 <=99 mg/L [facility] Comment: Greater than 800 mg/L (0.08%) should be considered intoxicated. 3400 to 4500 mg/L (0.34 - 0.45%) is considered severe intoxication. Greater than 5500 mg/L (0.55%) is usually fatal. Blood specimen (specimen) 03/26/2019 10:10 PM EDT 03/26/2019 10:18 PM EDT Narrative Resulting Agency Comment Spec In Lab Vaughn Boone MD CHEMISTRY ORDERABLES [facility] [place] [phone] * Gold Tube HOLD (03/26/2019 9:53 PM EDT) Gold Hold Sample in lab. [facility] Blood specimen (specimen) Venous Draw / Unknown 03/26/2019 9:53 PM EDT 03/26/2019 10:04 PM EDT Elpidio Pinedo IV, MD CHEMISTRY ORDERABLE S [facility] [place] [phone] * Blue Tube HOLD (03/26/2019 9:53 PM EDT) Blue Hold Sample in lab. [facility] Blood specimen (specimen) Venous Draw / Unknown 03/26/2019 9:53 PM EDT 03/26/2019 10:04 PM EDT Elpidio Pinedo IV, MD HEMATOLOGY ORDERABL ES [facility] [place] [address] * Differential, Automated (03/26/2019 9:53 PM EDT) Neutrophil % 57.9 % [facility] Neutrophil Absolute 5.86 1.70 - 6.10 x10(3)/[facility] Lymph % 30.9 % [facility] Lymphocytes Abs 3.1 0.9 - 3.2 x10(3)/[facility] Monocyte % 8.2 % [facility] Monocyte Abs 0.8 0.3 - 0.9 x10(3)/[facility] Eos % 2.1 % [facility] Eosinophils Abs 0.2 0.0 - 0.4 x10(3)/[facility] Basophil % 0.7 % [facility] Baso Absolute 0.1 0.0 - 0.1 x10(3)/[facility] Immature Gran % 0.20 % [facility] Comment: Immature granulocytes(IG's)percentage and absolute count will include metamyelocytes, myelocytes, and promyelocytes. Blood smears from CBCs yielding IG's will be scanned manually for concordance. If this scan disagrees with the automated IG or if promyelocytes are noted, a manual differential will be performed. Immature Gran Absolute 0.02 0.00 - 0.04 x10(3)/[facility] Blood specimen (specimen) 03/26/2019 9:53 PM EDT 03/26/2019 10:03 PM EDT Narrative Resulting Agency Comment Spec In Lab Elpidio Pinedo IV, MD HEMATOLOGY ORDERABL ES Performing Organization Address City/[facility]/ZIP Co de Phone Number [facility] [place] [address] * (ABNORMAL) Hemogram (03/26/2019 9:53 PM EDT) [...] Standard Deviation 45.4 37.0 - 46.0 fL [facility] RDW coefficient of variation 14.4(H) 11.5 - 14.1 % [facility] Mean Platelet Volume 9.4 7.6 - 12.9 fL [facility] NRBC% auto 0.0 % [facility] NRBC Absolute 0.000 0.000 - 0.000 x10(3)/mc L [facility] Blood specimen (specimen) 03/26/2019 9:53 PM EDT 03/26/2019 10:03 PM EDT Narrative Resulting Agency Comment Spec In Lab Elpidio Pinedo IV, MD HEMATOLOGY ORDERABL ES Performing Organization Address City/[facility]/ZIP Co de Phone Number [facility] [place] [address] * (ABNORMAL) Hemoglobin A1c (03/26/2019 9:53 PM [...] into estimated average glucose values. ??Diabetes Care 2008:31(8):8350-3847. Blood specimen (specimen) 03/26/2019 9:53 PM EDT 03/26/2019 10:03 PM EDT Narrative Resulting Agency Comment Spec In Lab Vaughn Boone MD CHEMISTRY ORDERABLES Performing Organization Address City/[facility]/ZIP Co de Phone Number [facility] [place] [address] * pro-Brain Natriuretic Peptide (03/26/2019 9:53 PM EDT) NT-proBNP 108 <=125 pg/mL [facility] Blood specimen (specimen) 03/26/2019 9:53 PM EDT 03/26/2019 10:03 PM EDT Narrative Resulting Agency Comment Spec In Lab Vaughn Boone MD CHEMISTRY ORDERABLES Performing Organization Address [facility] Co de Phone Number [facility] [place] [address] * Troponin (03/26/2019 9:53 PM EDT) Troponin-T [...] meets the diagnosis for a myocardial infarction (NE). Detection of a rise and/or fall of cTnT, with at least one value greater than the 99th percentile (> or = 0.01) and with at least one of the following ?? Symptoms of ischemia ?? New or presumed new significant GX-lejhqtq-G wave (ST-T) changes or new left bundle [...] additional sample may be indicated. Reference: Third [place] Definition of Myocardial Infarction. Journal of the [place] [employer] 2012;60:1581-98 Blood specimen (specimen) 03/26/2019 9:53 PM EDT 03/26/2019 10:03 PM EDT Narrative Resulting Agency Comment Spec In Lab Vaughn Boone MD CHEMISTRY ORDERABLES [facility] [place] [address] * (ABNORMAL) Basic Metabolic Panel (non-fasting) (03/26/2019 [...] of body mass or the acutely ill. http://[email or web address] eGFR 111 >=60 mL/min/1. 73 m?? [facility] Comment: The eGFR was calculated using the CKD-EPI equation. As with all creatinine based estimates of kidney function, eGFR values calculated with the CKD-EPI equation are not accurate in patients with acute kidney failure, extremes of body mass or the acutely ill. http://[employer]/DHMCnkf Blood specimen (specimen) 03/26/2019 9:53 PM EDT 03/26/2019 10:03 PM EDT Narrative Resulting Agency Comment Spec In Lab Vaughn Boone MD CHEMISTRY ORDERABLES [facility] [place] [address] * (ABNORMAL) Rapid Drug Screen w/o Confirmation, [...] marijuana metabolites screen detects the THC metabolite (40-wjx-3-carboxy-delta 9-THC) at concentrations >20 ng/mL. A ? [...] ORDERABLE S [facility] [place] [address] * Rapid Drug Screen, Urine (RODRIGUEZ Request) [...] Boone MD URINE ORDERABLES Performing Organization Address City/[facility]/ZIP Co de Phone Number [facility] [place] [address] * Urinalysis with reflex Culture (03/26/2019 9:49 [...] HOSPITAL LAB[facility] Leukocytes, Urine Dipstick Negative Negative mcL [facility] Appearance, Urine Dipstick Clear Clear [facility] Specific [place] Urine Automated 1.013 1.002 - 1.030 [facility] Color, Urine Dipstick Yellow Yellow [facility] Reflex to Culture No [facility] Urine specimen obtained by clean catch procedure (specimen) 03/26/2019 9:49 PM EDT 03/26/2019 10:12 PM EDT Narrative Resulting Agency Comment Spec In Lab Vaughn Boone MD URINE ORDERABLES Performing Organization Address City/[facility]/ZIP Co de Phone Number [facility] [place] [address] documented in this encounter Visit Diagnoses Diagnosis Generalized weakness Other malaise and fatigue Other specified diabetes mellitus with diabetic neuropathy, unspecified whether longterm insulin use Renal mass Unspecified disorder of kidney and ureter documented in this encounter Administered Medications Inactive Administered Medications - up to 3 most recent administrations Medication Order MAR Action Action Date Dose Rate Site gadoterate meglumine (DOTAREM) 0.5 mmol/mL (376.9 mg/mL) injection 0-100 mL 0-100 mL, Intravenous, ONCE PRN, 1 dose, Starting on 03/26/19 at 2254, Until Mon03/26/19 at 2240, Per Protocol, Radiology Contrast, Routine Given 03/26/2019 10:40 PM EDT 20 mLs documented in this encounter Active and Recently Administered Medications Times are shown in EDT. PRN Medication Order 03/25/2019 03/26/2019 03/27/2019 gadoterate meglumine (DOTAREM) 0.5 mmol/mL (376.9 mg/mL) injection 0-100 mL (COMPLETED) 0-100 mL, Intravenous, ONCE PRN, 1 dose, Starting on Tu03/26/19 at 2254, Until Tu03/26/19 at 2240, Per Protocol, Radiology Contrast, Routine 2240 (Given - Provider: Star Sepulveda) documented in this encounter Care Teams Volunteer Fire Fighter Relationship Specialty Start Date End Date Luis E Narayan MD [facility] DR LILI [facility] [address] PCP - General Family Medicine 03/26/19 01/19/22 documented as of this encounter
--- OUTSIDE RECORDS SUMMARY | 2024-04-15 16:01 | XMS_ITS | Encounter Summary ---
Author Organization [facility] Siri [facility] [place] [place] [address] Care Team Providers Care Partner Marketing Manager Name Role Phone Brenda Canchola MD Primary Care Provider [phone] Encounter Details Date Type Department Care Team (Late st Contact Info) Description 01/31/2014 Ancillary Procedure Radiology Library at [facility] [place] [phone] Luis E Narayan MD [facility] DR [facility] [place] [address] Social History Tobacco Use Types Packs/Day Years [...] 05/01/2024 11:20 AM EDT Appointment Mammography/[place] [address] Rodney Padilla MD 05/01/2024 1:45 PM EDT Office [place] [address] Juanpablo Hernandez MD [facility] [place] [address] 05/23/2024 2:45 PM EST Clinical Support Family Medicine at [facility] [address] [place] [address] Julia Low, [facility] 01/30/2025 1:30 PM EDT Laboratory Appointment Lab at [facility] Hematology Oncology [address] [place] [address] 01/30/2025 3:[address] [place] [address] Arturo Cordero MD [facility] DR HEMATOLOGY [place] [address] 01/30/2025 4:15 PM EDT Office Visit Hematology [place] [address] Arturo Cordero MD [facility] DR [place]EMATOLOGY [place] [address] documented as of this encounter Procedures Procedure Name Priority Date/Time Associated Diagnosis Comments FILM LIBRARY STORAGE ONLY MAMMO Routine 01/31/2014 12:00 AM EDT documented in this encounter Results * Film Library- Storage Only Mammo (01/31/2014 12:00 AM EDT) Narrative [facility] - 05/24/2019 9:46 PM EST This exam is auto-finalizing. It's purpose is for storage only. Luis E Narayan MD IMG FILM LIBRARY OR DERABLES [place], [place] documented in this encounter Visit Diagnoses Not on filedocumented in this encounter Care Teams Partner Marketing Manager Relationship Specialty Start Date End Date Brenda Canchola MD [address] [place] [address] PCP - General 11/23/10 9/16/19 documented as of this encounter
--- OUTSIDE RECORDS SUMMARY | 2024-04-15 16:01 | XMS_ITS | Encounter Summary ---
Author Organization [facility] [place] [address] Care Team Providers Care Return Clerk Name Role Phone Brenda Canchola MD Primary Care Provider [phone] Encounter Details Date Type Department Care Team (Late st Contact Info) Description 12/14/2012 Ancillary Procedure Radiology Library at [facility] [place] [phone] Luis E Narayan MD [facility] DR LILI WALK[facility] [address] Social History Tobacco Use Types Packs/Day Years [...] 05/01/2024 11:20 AM EDT Appointment Mammography/[place] [address] Rodney Padilla MD 05/01/2024 1:45 PM EDT Office [place] [address] Juanpablo Hernandez MD [facility] [place] [place] [address] 05/23/2024 2:45 PM EST Clinical Support Family Medicine at [facility] [place] [address] Julia Low, [facility] 01/30/2025 1:30 PM EDT Laboratory Appointment Lab at [facility] Hematology Oncology [address] [place] [address] 01/30/2025 3:[address] [place] [phone] Arturo Cordero MD [facility] DR HEMATOLOGY [place] [address] 01/30/2025 4:15 PM EDT Office Visit Hematology [place] [address] Arturo Cordero MD [facility] DR HEMATOLOGY [place] [address] documented as of this encounter Procedures Procedure Name Priority Date/Time Associated Diagnosis Comments FILM LIBRARY STORAGE ONLY MAMMO Routine 12/14/2012 12:00 AM EDT documented in this encounter Results * Film Library- Storage Only Mammo (12/14/2012 12:00 AM EDT) Narrative [facility] - 05/24/2019 9:36 PM EST This exam is auto-finalizing. It's purpose is for storage only. Luis E Narayan MD IMG FILM LIBRARY OR DERABLES [place], [place] documented in this encounter Visit Diagnoses Not on filedocumented in this encounter Care Teams Return Clerk Relationship Specialty Start Date End Date Brenda Canchola MD [address] [place] [address] PCP - General 11/23/10 9/16/19 documented as of this encounter
--- OUTSIDE RECORDS SUMMARY | 2024-04-15 16:01 | XMS_ITS | Encounter Summary ---
Author Organization [facility]i [facility] [place] [address] Care Team Providers Care Rest Room Attendant Name Role Phone Brenda Canchola MD Primary Care Provider [phone] Encounter Details Date Type Department Care Team (Late st Contact Info) Description 09/22/2011 Ancillary Procedure Radiology Library at [facility] [place] [phone] Luis E Narayan MD [facility] DR LIL[place] [address] Social History Tobacco Use Types Packs/Day Years [...] 05/01/2024 11:20 AM EDT Appointment Mammography/[place] [phone] Rodney Padilla MD 05/01/2024 1:45 PM EDT Office [place] [phone] Juanpablo Hernandez MD [facility] [place] [address] 05/23/2024 2:45 PM EST Clinical Support Family Medicine at [facility] [address] [place] [address] Julia Low, [facility] 01/30/2025 1:30 PM EDT Laboratory Appointment Lab at [facility] Hematology Oncology [address] [place] [address] 01/30/2025 3:[address] [place] [phone] Arturo Cordero MD [facility] [place] [address] 01/30/2025 4:15 PM EDT Office Visit Hematology [place] [address]1000 Arturo Cordero MD [facility] [place] [address] documented as of this encounter Procedures Procedure Name Priority Date/Time Associated Diagnosis Comments FILM LIBRARY STORAGE ONLY MAMMO Routine 09/22/2011 12:00 AM EDT documented in this encounter Results * Film Library- Storage Only Mammo (09/22/2011 12:00 AM EDT) Narrative [facility] - 05/24/2019 9:45 PM EST This exam is auto-finalizing. It's purpose is for storage only. Luis E Narayan MD IMG FILM LIBRARY OR DERABLES [place], [place] documented in this encounter Visit Diagnoses Not on filedocumented in this encounter Care Teams Rest Room Attendant Relationship Specialty Start Date End Date Brenda Canchola MD [address] [place] [address] PCP - General 11/23/10 9/16/19 documented as of this encounter
--- OUTSIDE RECORDS SUMMARY | 2024-04-15 16:01 | XMS_ITS | Encounter Summary ---
Author Organization [facility] [place] [address] Care Team Providers Care Multiple Cut Off Saw Operator Name Role Phone Unavailable Primary Care Provider Unavailabl e Encounter Details Date Type Department Care Team (Late st Contact Info) Description 03/09/2009 Ancillary Procedure Radiology Library at [facility] [place] [address] Luis E Narayan MD [facility] DR LILI [place] [address] Social History Tobacco Use Types Packs/Day Years [...] AM EDT Appointment Mammography/[place] [address] Rodney Padilla MD 05/01/2024 1:45 PM EDT [place] [phone] Juanpablo Hernandez MD [facility] [place] [address] 05/23/2024 2:45 PM EST Clinical Support Family Medicine at [facility] [address] [place] [address] Julia Low Prabhu, [facility] 01/30/2025 1:30 PM EDT Laboratory Appointment Lab at [facility] Hematology Oncology [address] [place] [address] 01/30/2025 3:[address] [place] [address]-1000 Arturo Cordero MD [facility] DR [place] [address] 01/30/2025 4:15 PM EDT Office Visit Hematology [place] [address]1000 Arturo Cordero MD [facility] DR [place] [address] documented as of this encounter Procedures Procedure Name Priority Date/Time Associated Diagnosis Comments FILM LIBRARY STORAGE ONLY MAMMO Routine 03/09/2009 12:00 AM EDT documented in this encounter Results * Film Library- Storage Only Mammo (03/09/2009 12:00 AM EDT) Narrative [facility] - 05/24/2019 9:41 PM EST This exam is auto-finalizing. It's purpose is for storage only. Luis E Narayan MD IMG FILM LIBRARY OR DERABLES [place], [place] documented in this encounter Visit Diagnoses Not on filedocumented in this encounter
--- OUTSIDE RECORDS SUMMARY | 2024-04-15 16:01 | XMS_ITS | Encounter Summary ---
Author Organization [facility]i [facility] [place] [address] Care Team Providers Care Sales Trader Name Role Phone Brenda Canchola MD Primary Care Provider [phone] Encounter Details Date Type Department Care Team (Late st Contact Info) Description 03/19/2019 Ancillary Procedure Radiology Library at [facility] [place] [phone] Luis E Narayan MD [facility] DR LILI [place] [address] Social History Tobacco Use Types Packs/Day Years [...] 05/01/2024 11:20 AM EDT Appointment Mammography/[place] [phone] Rodney Padilla MD 05/01/2024 1:45 PM EDT [place] [phone] Juanpablo Hernandez MD [facility] [place] [address] 05/23/2024 2:45 PM EST Clinical Support Family Medicine at [facility] [address] [place] [phone] Julia Low, [facility] 01/30/2025 1:30 PM EDT Laboratory Appointment Lab at [facility] Hematology Oncology [address] [place] [address] 01/30/2025 3:[address] [place] [place] [phone] Arturo Cordero MD [facility] DR [place] [address] 01/30/2025 4:15 PM EDT Office Visit [place] [phone] Arturo Cordero MD [facility] DR [place] [address] documented as of this encounter Procedures Procedure Name Priority Date/Time Associated Diagnosis Comments FILM LIBRARY STORAGE ONLY CT ABDOMEN AND PELVIS STAT 03/19/2019 12:00 AM EDT documented in this encounter Results * Film Library- Storage Only CT Abdomen & Pelvis (03/19/2019 12:00 AM EDT) Narrative [facility] - 03/28/2019 11:04 AM EDT This exam is auto-finalizing. It's purpose is for storage only. Luis E Narayan MD IMG FILM LIBRARY OR DERABLES [place], [place] documented in this encounter Visit Diagnoses Not on filedocumented in this encounter Care Teams Sales Trader Relationship Specialty Start Date End Date Brenda Canchola MD [address] [place] [address] PCP - General 06/01/10 03/25/19 documented as of this encounter
--- OUTSIDE RECORDS SUMMARY | 2024-04-15 16:01 | XMS_ITS | Encounter Summary ---
Author Organization [facility] [place] [address] Care Team Providers Care Production Analyst Name Role Phone Unavailable Primary Care Provider Unavailabl e Encounter Details Date Type Department Care Team (Late st Contact Info) Description 03/11/2009 Ancillary Procedure Radiology Library at [facility] [place] [address] Luis E Narayan MD [facility] [address] LILI [facility] [address] Social History Tobacco Use Types Packs/Day Years [...] AM EDT Appointment Mammography/[place] [phone] Rodney Padilla MD 05/01/2024 1:45 PM EDT Office [place] [phone] Juanpablo Hernandez MD [facility] [place] [address] 05/23/2024 2:45 PM EST Clinical Support Family Medicine at [facility] [address] [place] [address] Julia Low Prabhu, [facility] 01/30/2025 1:30 PM EDT Laboratory Appointment Lab at [facility] Hematology Oncology [address] [place] [address] 01/30/2025 3:[address] [place] [address] Arturo Cordero MD [facility] DR HEMATOLOGY [place] [address] 01/30/2025 4:15 PM EDT Office Visit Hematology [place] [address] Arturo Cordero MD [facility] DR HEMATOLOGY [place] [address] documented as of this encounter Procedures Procedure Name Priority Date/Time Associated Diagnosis Comments FILM LIBRARY STORAGE ONLY MAMMO Routine 03/11/2009 12:00 AM EDT documented in this encounter Results * Film Library- Storage Only Mammo (03/11/2009 12:00 AM EDT) Narrative [facility] - 05/24/2019 9:42 PM EST This exam is auto-finalizing. It's purpose is for storage only. Luis E Narayan MD IMG FILM LIBRARY OR DERABLES [place], [place] documented in this encounter Visit Diagnoses Not on filedocumented in this encounter
--- OUTSIDE RECORDS SUMMARY | 2024-04-15 16:01 | XMS_ITS | Encounter Summary ---
[place] [address] Care Team Providers Care Garment Form Assembler Name Role Phone Brenda Renee MD Primary Care Provider [phone] Encounter Details Date Type Department Care Team (Latest Contact Info) Description 07/22/2013 3:11 PM EST - 07/22/2013 11:59 PM EST Hospital [place] [address] CLINIC, Brenda Greenwood MD [address] [place] [address] Discharge Disposition: Home Social History [...] Gramajo AGE: 52 y.o. : 1960 Female [phone] (home) Telephone Information: PCP NARCOTICS AGENT BRENDA RENEE MD None Allergies Allergen Reactions ??? Codeine Phosphate Nausea And Vomiting ??? Erythromycin Base Nausea Only ??? Nsaids (Non-Steroidal Anti-Inflammatory Drug) Nausea And Vomiting Date/Time of call: July 19, 2013/1:37 PM/ PREVIOUS MRI SCAN? Yes, many years ago at [facility] HEIGHT: 63 1/2 WEIGHT: 270# (confirmed large [...] HR. BEFORE SCHEDULED SCAN AND HAVE A GIFT PACKER AVAILABLE. PT STATED TO PERFUME COMPOUNDER THAT THE SEDATION WAS EFFECTIVE FOR SCAN: Y N COMMENTS: This patient has been informed that they require a armored car guard and driver to drive them home after this procedure. In the absence of a armored car guard and driver, IR will not be able to [...] 11:20 AM EDT Appointment Mammography/[place] [address] Rodney Padilla MD 05/01/2024 1:45 PM EDT Office [place] [address] Juanpablo Hernandez MD [facility] [address] 05/23/2024 2:45 PM EST Clinical Support Family Medicine at [facility] [address] [place] [address] Julia Low [facility] 01/30/2025 1:30 PM EDT Laboratory Appointment Lab at [facility] Hematology Oncology [address] [place] [address] 01/30/2025 3:[address] [place] [address] Arturo Cordero MD [facility] DR HEMATOLOGY [place] [address] 01/30/2025 4:15 PM EDT Office Visit Hematology [place] [address] Arturo Cordero MD [facility] DR [place]EM[place] [address] documented as of this encounter Procedures Procedure [...] in the context of the clinical situation. (Reference-Jarvik et al, Spine 2001) Findings: (prevalence in [...] in the context of the clinical situation. (Reference-Jarvik et al, [id number]) Findings: (prevalence in patients without low back pain), Diskdegeneration (decreased T2 signal, height loss, bulge) (91%), Disk T2-signal loss(83%), Disk height loss (56%), Disk bulge (64%), Disk protrusion (32%), Annular fissure (38%). Film and interpretation reviewed by the attending Brenda Renee MD IMG MRI ORDERABLES documented in this encounter Visit Diagnoses Not on filedocumented in this encounter Care Teams Garment Form Assembler Relationship Specialty Start Date End Date Brenda Renee MD [address] [place] [address] PCP - General 06/01/10 03/25/19 documented as of this encounter
--- OUTSIDE RECORDS SUMMARY | 2024-04-15 16:01 | XMS_ITS | Encounter Summary ---
Author Organization [facility] Address [facility] [place] [address] Care Team Providers Care Fried Cake Maker Name Role Phone Brenda Canchola MD Primary Care Provider [phone] Reason for Visit * Reason Comments Cognitive Decline Neuropsychological T esting Encounter Details Date Type Department Care Team (Late st Contact Info) Description 10/14/2010 9:00 AM EDT Office Visit Psychiatry and Behavioral Health at [facility] [place] [address] Kelsey Castrejon, PhD NEUROPSYCHOLOGY DEPT. 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 She was referred to assess [...] Ms. Gramajo was transferred to [facility] from [facility] with non-ST elevated myocardial infarction, after experiencing [...] services. 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 She was alert and oriented [...] Comprehension and Cookie Theft Picture (from BDAE) [place] Naming Test (BNT) Wide Range Achievement Test [...] System (D-KEFS): Raw Scores Range (Scaled Scores) Prentiss Making: Visual Scanning 15?? 0 err (13) [...] (CVLT-II): Raw Scores Range Acquisition 53/80 Average (7-03-04-12-11) Short-Delay Free Recall 8/16 Low Average Short-Delay [...] Comprehension (from BDAE): 11/12 Within Normal Limits [place] Naming Test (BNT): 50/60 Low Average Wide [...] her to utilize some type of daily naval surface fire support planner/organizer. In addition, feedback about the results [...] Fellow Board Certified in Clinical Neuropsychology Neuropsychology Respiratory DirectorWaiter/Waitress Third Classlandscaper helper Director, Neuropsychology Program This report was prepared by Deuce Toledo Psy.D., Postdoctoral Fellow in Neuropsychology, under the supervision of Kelsey Castrejon, Ph.D., ABPP. documented in this encounter Plan of Treatment Upcoming Encounters Date Type Department Care Team (Late st Contact Info) Description 05/01/2024 11:20 AM EDT Appointment Mammography/DXA at [place] [phone] Rodney Padilla MD 05/01/2024 1:45 PM EDT Office Visit Ophthalmology at [place] [phone] Juanpablo Hernandez MD [facility] [place] [address] 05/23/2024 2:45 PM EST Clinical Support Family Medicine at [address] [address] Julia Low, [facility] 01/30/2025 1:30 PM EDT Laboratory Appointment Lab at [facility] Hematology Oncology [address] [place] [address] 01/30/2025 3:[address] [place] [address] Arturo Cordero MD [facility] DR [place] [address] 01/30/2025 4:15 PM EDT Office Visit [place]ematology [place] [address] Arturo Cordero MD [facility] DR HEMATOLOGY [place] [address] documented as of this encounter Visit Diagnoses Diagnosis Cognitive deficits- Primary Unspecified persistent mental disorders due to conditions classified elsewhere documented in this encounter Care Teams Fried Cake Maker Relationship Specialty Start Date End Date Brenda Canchola MD [address] [place] [address] PCP - General 06/01/10 03/25/19 documented as of this encounter
--- OUTSIDE RECORDS SUMMARY | 2024-04-15 16:01 | XMS_ITS | Encounter Summary ---
Author Organization [facility] [place] [address] Care Team Providers Care Ware Dresser Name Role Phone Unavailable Primary Care Provider Unavailabl e Encounter Details Date Type Department Care Team (Late st Contact Info) Description 03/10/2010 Ancillary Procedure Radiology Library at [facility] [place] [address] Luis E Narayan MD [facility] DR LILI WALKER-[place] [address] Social History Tobacco Use Types Packs/Day Years [...] 11:20 AM EDT Appointment Mammography/[place] [address] Rodney Padilla MD 05/01/2024 1:45 PM EDT Office [place] [address] Juanpablo Hernandez MD [facility] [place] [address] 05/23/2024 2:45 PM EST Clinical Support Family Medicine at [facility] [address] [place] [address] Julia Low Prabhu, [facility] 01/30/2025 1:30 PM EDT Laboratory Appointment Lab at [facility] Hematology Oncology [address] [place] [address] 01/30/2025 3:[address] [place] [address] Arturo Cordero MD [facility] DR HEMATOLOGY [place] [address] 01/30/2025 4:15 PM EDT Office Visit Hematology [place] [address] Arturo Cordero MD [facility] DR HEMATOLOGY [place] [address] documented as of this encounter Procedures Procedure Name Priority Date/Time Associated Diagnosis Comments FILM LIBRARY STORAGE ONLY MAMMO Routine 03/10/2010 12:00 AM EDT documented in this encounter Results * Film Library- Storage Only Mammo (03/10/2010 12:00 AM EDT) Narrative [facility] - 05/24/2019 9:43 PM EST This exam is auto-finalizing. It's purpose is for storage only. Luis E Narayan MD IMG FILM LIBRARY OR DERABLES [place], [place] documented in this encounter Visit Diagnoses Not on filedocumented in this encounter
--- OUTSIDE RECORDS SUMMARY | 2024-04-15 16:01 | XMS_ITS | Encounter Summary ---
Author Organization [facility] [place] [address] Care Team Providers Care Cone Baker Machine Name Role Phone Brenda Canchola MD Primary Care Provider [phone] Encounter Details Date Type Department Care Team (Late st Contact Info) Description 06/15/2010 2:40 PM EST [place] [address] Noreen Brambila MD [facility] [place] [address] Social History Tobacco Use Types Packs/Day Years [...] 11:20 AM EDT Appointment Mammography/[place] [address] Rodney Padilla MD 05/01/2024 1:45 PM EDT Office [place] [address] Juanpablo Hernandez MD [facility] [address] 05/23/2024 2:45 PM EST Clinical Support Family Medicine at [facility] [address] [place] [address] Julia Low, [facility] 01/30/2025 1:30 PM EDT Laboratory Appointment Lab at [facility] Hematology Oncology [address] [place] [address] 01/30/2025 3:[address] [place] [address] Arturo Cordero MD [facility] DR HEMATOLOGY [place] [address] 01/30/2025 4:15 PM EDT Office Visit Hematology [place] [address] Arturo Cordero MD [facility] DR HEMATOLOGY [place] [address] documented as of this encounter Visit Diagnoses Not on filedocumented in this encounter Care Teams Cone Baker Machine Relationship Specialty Start Date End Date Brenda Canchola MD [address] [place] [address] PCP - General 06/01/10 03/25/19 documented as of this encounter
--- OUTSIDE RECORDS SUMMARY | 2024-04-15 16:01 | XMS_ITS | Encounter Summary ---
Author Organization [facility] [place] [address] Care Team Providers Care Client Support Manager Name Role Phone Brenda Canchola MD Primary Care Provider Encounter Details Date Type Department Care Team (Late st Contact Info) Description 03/18/2019 Ancillary Procedure Radiology Library [place] [address] Luis E Narayan MD [facility] DR L[place] [address] Social History Tobacco Use Types Packs/Day Years [...] 05/01/2024 11:20 AM EDT Appointment Mammography/[place] [address] Rodney Padilla MD 05/01/2024 1:45 PM EDT Office [place] [address] Juanpablo Hernandez MD [facility] [place] [address] 05/23/2024 2:45 PM EST Clinical Support Family Medicine at [facility] [address] [place] [address] Julia Low, [facility] 01/30/2025 1:30 PM EDT Laboratory Appointment Lab at [facility] Hematology Oncology [address] [place] [address] 01/30/2025 3:[address] [place] [address] Arturo Cordero MD [facility] [place] [address] 01/30/2025 4:15 PM EDT Office Visit Hematology [place] [address] Arturo Cordero MD [facility] [place] [address] documented as of this encounter Procedures Procedure Name Priority Date/Time Associated Diagnosis Comments FILM LIBRARY STORAGE ONLY ULTRASOUND STUDY STAT 03/18/2019 12:00 AM EDT documented in this encounter Results * Film Library- Storage Only Ultrasound Study (03/18/2019 12:00 AM EDT) Narrative [facility] - 03/28/2019 11:02 AM EDT This exam is auto-finalizing. It's purpose is for storage only. Luis E Narayan MD IMG FILM LIBRARY OR DERABLES [place], [place] documented in this encounter Visit Diagnoses Not on filedocumented in this encounter Care Teams Client Support Manager Relationship Specialty Start Date End Date Brenda Canchola MD [address] [place] [address] PCP - General 06/01/10 03/25/19 documented as of this encounter
--- NOTE | 2024-04-15 16:08 | ED.GENADUL_ITS ---
Discharge Plan Disposition Patient Disposition: Home Condition: Good Discharge Details Clinical Impression: Diverticulitis, Bradycardia Primary Care Provider: Luis E Narayan ED Provider: Tonia Mcrae Home Meds and New Rx's Prescriptions: Continued (DME) Aerochamber MV spacer See Dose Instructions .Route .MEDSUPPLY Qty: 1 0RF Dose Instruction: As directed Rx Instructions: As directed fluticasone propionate [Flonase Allergy Relief] 50 mcg/actuation spray,suspension 1 spray KUMAR BID PRN (Reason: nasal congestion) Qty: 9.9 3RF Rx Instructions: administer into each nostril loratadine [Claritin] 10 mg tablet 10 mg PO DAILY lorazepam 1 mg tablet 0.5 - 1 mg PO BID PRN (Reason: anxiety) Qty: 30 0RF Rx Instructions: 12/06/20 PT USES 1 MG AT HS AND 0.5 MG AT NOON meclizine 25 mg tablet 25 mg PO BID PRN (Reason: dizziness) Qty: 10 0RF Rx Instructions: for vertigo nitroglycerin 0.4 mg tablet, sublingual 0.4 mg Sublingual PRN Qty: 25 2RF Rx Instructions: 1 TAB SL PRN melatonin 10 mg capsule 10 mg PO HS PRN Adult 50 Plus Probiotic 4 billion cell capsule 4,000 mmu cells PO DAILY Qty: 30 0RF Rx Instructions: administer with a meal pantoprazole [Protonix] 40 mg tablet,delayed release (DR/EC) 40 mg PO DAILY Qty: 30 12RF ipratropium-albuterol 0.5 mg-3 mg(2.5 mg base)/3 mL solution for nebulization 3 ml inhalation Q4H PRN (Reason: wheezing) Qty: 90 0RF docusate sodium 100 mg tablet 100 mg PO DAILY amoxicillin-pot clavulanate 875-125 mg tablet 1 tab PO TID 7 Days Qty: 21 0RF acetaminophen [Tylenol] 325 MG tablet 650 mg PO Q4H PRN CPAP (DME) lancets [OneTouch Delica Lancets] 1 EACH misc 1 ea Intradermal BID Qty: 200 Rx Instructions: DX: 250.00 (DME) OneTouch Ultra Test 1 EACH strip 1 strip Miscellaneous DAILY Qty: 100 Rx Instructions: DX: 250.00 oral meds amlodipine 5 mg tablet 5 mg PO DAILY Qty: 90 4RF Rx Instructions: 1 TAB DAILY clopidogrel [Plavix] 75 mg tablet 75 mg PO DAILY Qty: 90 4RF Metoprolol Succinate 25 MG TAB.ER.24H 25 mg PO DAILY Qty: 90 4RF Rx Instructions: 1 TAB DAILY simvastatin 10 mg tablet 10 mg PO DAILY Qty: 90 4RF Rx Instructions: 1 TAB DAILY losartan [Cozaar] 100 mg tablet 100 mg PO DAILY Qty: 90 4RF Rx Instructions: 1 TAB DAILY albuterol sulfate [Ventolin HFA] 90 mcg/actuation HFA aerosol inhaler 2 puff IH Q4H PRN (Reason: shortness of breath or wheezing) Qty: 8.5 11RF sucralfate 100 mg/mL suspension 10 ml PO QID Rx Instructions: swish in mouth and swallow; use after food/drink buspirone 30 mg tablet 30 mg PO BID aspirin 81 mg Tablet,Delayed Release (Dr/Ec) 81 mg PO DAILY lamotrigine 100 mg tablet 100 mg PO QAM Patient Comments: TAKE ONE TABLET BY MOUTH TWICE A DAY trazodone 50 mg tablet 100 mg PO HS PRN Rx Instructions: 1-tab at HS PRN (DME) nebulizers [Aeroneb Go Nebulizer] [facility] See Rx Instructions .Route Qty: 1 0RF Rx Instructions: As directed insulin glargine 100 unit/mL Cartridge 10 unit SUBCUT BID Mounjaro 5 mg/0.5 mL pen injector 5 mg SUBCUT .weekly metformin 500 mg tablet 1,000 mg PO BID (DME) blood-glucose meter [FreeStyle Lite Meter] Kit See Rx Instructions .ROUTE .MEDSUPPLY Qty: 1 0RF Rx Instructions: As directed (DME) FreeStyle Lite Strips Strip See Rx Instructions .ROUTE .MEDSUPPLY Qty: 10 0RF Rx Instructions: As directed Discharge Instructions Instructions: Diverticulitis Additional Instructions: Please call your primary care provider first thing in the morning to schedule follow-up appointment within the week for reassessment of your bradycardia and d iverticulitis/left lower abdominal pain. A referral has been placed to [facility] for cardiology and gastroenterology. You may call them to set up appointment. Continue taking your Augmentin 3 times a day as prescribed. You may use tylenol 650 mg every 6 hours as needed for discomfort. Heating pads may also be helpful. I recommend that you continue with a gentle low fiber diet, reading, chicken/ turkey, fish, white bread/rice/pasta, canned or cooked fruits without skin or seeds, canned and cooked vegetables with no skin, fruit and vegetable juice with no fall, low fiber cereals, no/yogurt/cheese. For constipation I recommend the use 1 capful of MiraLAX with Colace daily until you are having 2 soft stools a day. Return to emergency care if develop new severe abdominal pain, fevers associated with abdominal pain, blood in stools, uncontrollable vomiting, or if you are very worried and need to be rechecked again immediately HPI General Date/Time Provider Initiated Documentation: 04/15/24 15:35 . HPI Narrative: Alize is a 63-year-old female with history of T2DM on mounjaro and metformin, COPD, ASCVD, IBS, and h/o left renal carcinoma who presents to the emergency department for evaluation of left lower quadrant pain. She reports that she has chronic left lower quadrant pain with palpation with aching discomfort, but in the last week it has become a cramping pain. She was seen by urgent care on Monday, given Augmentin for presumed diverticulitis. She reports that last night it turned into a sharp stabbing pain as well as the cramping pain. Reports she has been prescribed Colace 100 mg daily, thinks this may have been irritating her bowels. She denies fever/chills, nausea/vomiting, change in p.o. intake other than clear liquid diet as advised by urgent care for treatment of diverticulitis, blood in stool, dysuria, hematuria. She has not had a BM in two days; says she has stopped taking the colace yesterday. She does report she has been drinking extra fluids, thinks this may be contributing to urinary frequency. She reports she has had a low heart rate during her last 2 visits, takes metoprolol daily. Had a brief episode of lightheadedness yesterday while standing, this resolved spontaneously- did not feel like she was going to pass out. Denies chest pain, shortness of breath, or new onset of weakness. Physical exam remarkable for mild tenderness with palpation of left lower quadrant. Patient does have softly distended abdomen with hyperactive bowel sounds. Abdomen is soft, no rigidity or guarding. No CVA tenderness. Easy work of breathing, lung sounds clear bilaterally. Normal heart sounds. Patient is alert and oriented, no acute distress. DDx includes but not limited to: Diverticulitis, abscess, constipation, neoplasm/obstructive process, UTI, IBS, ovarian cyst less likely based on post menopausal female. As patient has bradycardia that appears to be new compared to previous vital signs, will evaluate for thyroid dysfunction and myocardial ischemia, as well as infection. This is possibly related to metoprolol use. I independently interpreted the following tests: EKG reassuring, normal sinus rhythm rate 86. Prolonged MA interval, 216. PVCs noted. No changes consistent with acute ischemia. Initial troponin elevated at 72, stayed flat at 69 and 76. CBC, CMP, and TSH reassuring. UA reassuring, not consistent with UTI. CT abdomen/pelvis performed, significant for mild diverticulitis of the mid desc ending colon. Overall workup today reassuring. Cardiac workup for bradycardia unremarkable, bradycardia did resolve after initial vital signs with heart rate going from 45 to mid 70s without intervention. Discussed case with Dr Lee, cadiologist at [facility]. As pt had bradycardia while in pain, likely vasovagal stimulation. No emergent follow-up recommended, though it would be helpful for patient to reestablish care with cardiology Recommend follow-up with PCP for further evaluation, as echo may be indicated. Left lower quadrant pain likely due to diverticulitis, though constipation may be contributory as well. Recommend use of daily MiraLAX, as patient is reluctant to use Colace 100 mg daily because she thinks it might be too much and irritating her colon further. Recommend low fiber diet. Reviewed red flags indicating need for return to emergency care. Related Data Home Medications ?Medication ?Instructions ?Recorded ?Confirmed Cpap 10/24/12 04/13/24 acetaminophen 325 mg tablet 650 mg PO Q4H PRN 10/24/12 04/15/24 (Tylenol) lancets 33 gauge (PredictviaTouch Delica #200 ea 12/15/12 04/15/24 Lancets) blood sugar diagnostic ([employer] #100 strips 01/24/14 04/15/24 Ultra Test strips) inhalational spacing device #1 ea 05/01/18 04/15/24 (Aerochamber MV spacer) nitroglycerin 0.4 mg sublingual 0.4 mg sublingual PRN #25 tab-caps 05/04/18 04/15/24 tablet amlodipine 5 mg tablet 5 mg PO DAILY #90 tab-caps 07/27/18 04/15/24 clopidogrel 75 mg tablet (Plavix) 75 mg PO DAILY #90 tabs 07/27/18 04/15/24 simvastatin 10 mg tablet 10 mg PO DAILY #90 tab-caps 07/31/18 04/15/24 losartan 100 mg tablet (Cozaar) 100 mg PO DAILY #90 tab-caps 12/27/18 04/15/24 fluticasone propionate 50 1 spray intranasal BID PRN nasal 02/03/19 04/15/24 mcg/actuation nasal congestion #9.9 grams spray,suspension (Flonase Allergy Relief) loratadine 10 mg tablet (Claritin) 10 mg PO DAILY 02/03/19 04/15/24 lorazepam 1 mg tablet 0.5 - 1 mg (0.5 - 1 x 1 mg) PO BID 02/19/19 04/15/24 PRN anxiety #30 tabs albuterol sulfate 90 mcg/actuation 2 puff inhalation Q4H PRN 08/29/19 04/15/24 aerosol inhaler (Ventolin HFA) shortness of breath or wheezing #8.5 grams metformin 500 mg tablet 1,000 mg PO BID 09/12/19 04/15/24 aspirin 81 mg tablet,delayed 81 mg PO DAILY 08/17/20 04/15/24 release lamotrigine 100 mg tablet 100 mg PO QAM 08/17/20 04/15/24 trazodone 50 mg tablet 100 mg PO HS PRN 08/17/20 04/15/24 blood sugar diagnostic (FreeStyle #10 ea 12/06/20 04/15/24 Lite Strips) blood-glucose meter (FreeStyle #1 ea 12/06/20 04/15/24 Lite Meter kit) melatonin 10 mg capsule 10 mg PO HS PRN 02/23/21 04/15/24 lactobacillus combination no.9 4 4,000 mmu cells PO DAILY #30 caps 10/13/21 04/15/24 billion cell capsule (Adult 50 Plus Probiotic) pantoprazole 40 mg tablet,delayed 40 mg PO DAILY #30 tabs 05/19/22 10/07/24 release (Protonix) nebulizers (Aeroneb Go Nebulizer) #1 ea 04/03/22 04/15/24 insulin glargine 100 unit/mL 10 unit subcut BID 01/07/23 04/15/24 subcutaneous cartridge buspirone 30 mg tablet 30 mg PO BID 03/16/23 04/15/24 sucralfate 100 mg/mL oral 10 ml PO QID 03/16/23 04/15/24 suspension ipratropium 0.5 mg-albuterol 3 mg 3 ml inhalation Q4H PRN wheezing 06/05/23 04/15/24 (2.5 mg base)/3 mL nebulization #90 mL soln meclizine 25 mg tablet 25 mg PO BID PRN dizziness #10 tabs 07/01/23 04/15/24 amoxicillin 875 mg-potassium 1 tab PO TID 7 days #21 tabs 04/13/24 04/15/24 clavulanate 125 mg tablet docusate sodium 100 mg tablet 100 mg PO DAILY 04/13/24 04/15/24 tirzepatide 5 mg/0.5 mL 5 mg subcut .weekly 04/15/24 04/15/24 subcutaneous pen injector (Radha) Previous Rx's ?Medication ?Instructions ?Recorded inhalational spacing device #1 ea 05/01/18 (Aerochamber MV spacer) nitroglycerin 0.4 mg sublingual 0.4 mg sublingual PRN #25 tab-caps 05/04/18 tablet amlodipine 5 mg tablet 5 mg PO DAILY #90 tab-caps 07/27/18 clopidogrel 75 mg tablet (Plavix) 75 mg PO DAILY #90 tabs 07/27/18 simvastatin 10 mg tablet 10 mg PO DAILY #90 tab-caps 07/31/18 losartan 100 mg tablet (Cozaar) 100 mg PO DAILY #90 tab-caps 12/27/18 fluticasone propionate 50 1 spray intranasal BID PRN nasal 02/03/19 mcg/actuation nasal congestion #9.9 grams spray,suspension (Flonase Allergy Relief) lorazepam 1 mg tablet 0.5 - 1 mg (0.5 - 1 x 1 mg) PO BID 02/19/19 PRN anxiety #30 tabs albuterol sulfate 90 mcg/actuation 2 puff inhalation Q4H PRN 08/29/19 aerosol inhaler (Ventolin HFA) shortness of breath or wheezing #8.5 grams blood sugar diagnostic (FreeStyle #10 ea 12/06/20 Lite Strips) blood-glucose meter (FreeStyle #1 ea 12/06/20 Lite Meter kit) lactobacillus combination no.9 4 4,000 mmu cells PO DAILY #30 caps 10/13/21 billion cell capsule (Adult 50 Plus Probiotic) pantoprazole 40 mg tablet,delayed 40 mg PO DAILY #30 tabs 11/25/21 release (Protonix) nebulizers (Aeroneb Go Nebulizer) #1 ea 04/03/22 ipratropium 0.5 mg-albuterol 3 mg 3 ml inhalation Q4H PRN wheezing 06/05/23 (2.5 mg base)/3 mL nebulization #90 mL soln meclizine 25 mg tablet 25 mg PO BID PRN dizziness #10 tabs 07/01/23 amoxicillin 875 mg-potassium 1 tab PO TID 7 days #21 tabs 04/13/24 clavulanate 125 mg tablet Allergies Allergy/AdvReac Type Severity Reaction Status Date / Time azithromycin AdvReac Mild Nausea Verified 04/15/24 17:07 codeine AdvReac Mild Nausea Verified 04/15/24 17:07 erythromycin base AdvReac Mild Nausea Verified 04/15/24 17:07 ibuprofen AdvReac Mild Nausea Verified 04/15/24 17:07 lisinopril AdvReac Mild cough Verified 04/15/24 17:07 NSAIDS (Non-Steroidal AdvReac Mild Nausea Verified 04/15/24 17:07 Anti-Inflamma General Stated Complaint: Abd Prob MONICA: 3 Review of Systems Narrative: see HPI Exam Const General: cooperative, healthy appearing, comfortable, no acute distress, well developed, well groomed and anxious Nutritional Appearance: overweight Orientation: alert and oriented x3 Cardio Rate: bradycardic Rhythm: regular rhythm GI Inspection: normal to inspection, distended (softly distended) and no visible herniation Palpation: soft, not rigid and tender (LLQ) Auscultation: normal bowel sounds Back/Spine/Pelvis Back: no CVA tenderness Skin General skin exam: no rashes or lesions noted Course Vital Signs Vital signs: Vital Signs Temperature 36.7 C 04/15/24 15:33 Pulse 45 L 04/15/24 15:33 Respiratory Rate 12 04/15/24 15:33 Blood Pressure 145/76 H 04/15/24 15:33 Pulse Oximetry 96 04/15/24 15:33 Temperature 36.7 C 04/15/24 15:33 Temperature Source Oral 04/15/24 15:33 Pulse 45 L 04/15/24 15:33 Respiratory Rate 12 04/15/24 15:33 Blood Pressure 145/76 H 04/15/24 15:33 Blood Pressure Position Sitting 04/15/24 15:33 Pulse Oximetry 96 04/15/24 15:33 Oxygen Delivery Method Room Air 04/15/24 15:33 Oxygen Flow Rate 0 04/15/24 15:33 Pain Level 8 04/15/24 15:33 Medical Decision Making Quality:SDOH Health Related Social Needs: No Data to Display PFSH All Active Problems (Updated 04/15/24 @ 19:18 by Tonia Jeronimo) Bradycardia (Acute) Diverticulitis (Chronic) Degenerative joint disease of right knee (Acute) Mild 40 mg Depo: 03/20/23 Internal derangement of right knee (Acute) Right knee pain (Acute) Liver cirrhosis secondary to nonalcoholic steatohepatitis ([place]) (Acute) Chronic diarrhea (Acute) Epigastric pain (Acute) Hyperplastic colon polyp (Acute) ASCVD (arteriosclerotic cardiovascular disease) (Acute) 10/15 anterolat NSTE MT; stent x 4; 10/15 echo-EF 55%; inf.wall hypokinesis; mild Anxiety (Acute) after MT decreased memory/concentration--[facility] neurology COPD (chronic obstructive pulmonary disease) (Acute) continues to smoke Depressive disorder (Acute) fatigue Diabetic peripheral neuropathy associated with type 2 diabetes mellitus (Acute 03/03/16) Essential hypertension (Acute 05/03/13) Urinary, incontinence, stress female (Acute 09/13/13) Heart murmur (Acute 09/13/13) 10/21 echo LVEF 70% with LVH, aoritc valve thickened but opens well (no signif aortic stenosis) [facility] Echo 02/05/19 - LVH (mild-mod), EeF= 60-65%, systolic function normal, ascending aorta mildly dilated Hyperlipidemia (Acute 12/18/12) Morbid obesity (Acute) Numbness and tingling in right hand (Acute 03/03/16) Obstructive sleep apnea syndrome (Acute 03/27/10) [facility] sleep lab Pap smear abnormality of cervix with LGSIL (Acute) LGSIL +HPV; BX darcie I Postmenopausal bleeding (Acute 09/21/11) atypical endometrial hyperplasia Sciatica (Acute 07/04/13) left sciatica, MRI [facility] 07/22/13: L3-4 disc extrusion Skin tags, multiple acquired (Acute 02/15/16) Smoker (Acute) Type II diabetes mellitus, uncontrolled (Acute) Asthma (Chronic) Status post arthroscopy of left knee (Acute) History of section (Acute) Family history of malignant neoplasm of breast (Acute 09/11/14) Fever (Acute) She is febrile and has both abdominal and chest symptoms. We will send to the emergency room. Upper respiratory infection (Acute) Hyperglycemia (Acute) Acute bronchospasm (Acute) Seasonal allergies (Acute) History of COPD (Acute) Fatty liver (Acute) Diverticulosis (Acute) Constipation (Acute) Incontinence (Acute) Pedal edema (Acute) Varicose veins of lower extremity (Acute) Bipolar disorder (Chronic) Compliant with therapeutic regimen (Acute) Caren, oral (Acute) Allergic rhinitis (Acute) Medical History Hx of malignant neoplasm of eye History of renal carcinoma Hypertension COPD (chronic obstructive pulmonary disease) Hyperlipidemia Heart murmur Atherosclerotic cardiovascular disease Depression Anxiety Stress incontinence in female Morbid obesity with BMI of 40.0-44.9, adult Plantar fasciitis of left foot Sleep apnea Surgical History H/O esophagogastroduodenoscopy (~03/10/21) S/P colonoscopy (~03/10/21) Stent placement X 4 TO [id number]-1996 section (~1981) Cervical Procedure BX DARCIE I Arthroplasty of knee athroscopy not arthroplasty. Family History Mother Personal history of malignant neoplasm UTERINE CA; HYSTERECTOMY AGE 75 Uterine cancer Hysterectomy at 76 Father Heart disease Brother Diabetes Cancer Brother No problems noted. Brother No problems noted. Social History Smoking/Tobacco Use Status: Current every day Tobacco Type: cigarettes Smoking packs per day: 1 Smoking cigarettes per day: 20.0 Smoking risk assessment performed?: Yes Alcohol Intake: current Alcohol Intake frequency: holidays/special occasions only Drug use: Never Substance use type: does not use Household members: significant other Housing: house Communication Needs: None Do you need help understanding health information?: Rarely Pets and animals: Yes Pets and animals: dog(s) Do you think of yourself as: straight/heterosexual Current gender identity: female What is your relationship status?: living with partner How often do you talk on the phone with friends or family?: three or more times per week How often do you get together with friends or relatives?: decline to answer How often do you attend hoahaoism or yazdanism services?: decline to answer Do you belong to any clubs or organized social groups?: no Panel score (0-1 are the most socially isolated patients): 2 What type of physical activity do you participate in: none Duration: < 15 minutes/day Frequency: daily Katerina/Hindu: none Special katerina needs: No Seatbelt use: sometimes Helmet use: Yes Helmet use: always Drive intox or ride 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
[2024-04-15 16:35] LABS: Abs Immature Grans 0.03 10^3/uL (0.0-0.06); Absolute Basophil Count 0.06 10^3/uL (0.0-0.2); Absolute Eosinophil Count 0.09 10^3/uL (0.0-0.7); Absolute Lymphocyte Count 2.38 10^3/uL (1.2-3.4); Absolute Monocyte Count 0.54 10^3/uL (0.1-0.8); Absolute Neutrophil Count 5.22 10^3/uL (1.2-6.7); Basophils % 0.7 %; Eosinophils % 1.1 %; HCT 40.8 % (36.0-46.0); HGB 13.6 g/dL (11.2-15.7); Immature Grans % 0.4 %; Lymphocytes % 28.6 %; MCH 29.6 pg (27.0-33.0); MCHC 33.3 % (32.0-36.0); MCV 89 fL (80-95); MPV 9.5 fL (8.0-11.0); Monocytes % 6.5 %; Neutrophils % 62.7 %; Platelet Count 381 10^3/uL (130-400); RBC 4.59 10^6/uL (3.93-5.22); RDW 13.8 % (11.7-14.6); RDW-SD 45.2 fL; WBC 8.32 10^3/uL (4.4-10.8)
[2024-04-15 16:36] LABS: Bilirubin Negative (Negative); Blood Negative (Negative); Clarity Clear (Clear); Glucose Negative (Negative); Ketones Negative (Negative); Leukocyte Esterase Negative (Negative); Nitrite Negative (Negative); Specific Gravity 1.025 (1.005-1.025); Urobilinogen 0.2 mg/dL (Up to 0.2); pH 5.5 (5-8)
[2024-04-15 16:59] LABS: ALT 38 U/L (14-59); AST 34 U/L (15-37); Albumin 3.8 g/dL (3.4-5.0); Alkaline Phosphatase 102 U/L (46-116); Anion Gap 12.1 mmol/L (3-11); BUN 13 mg/dL (7-18); Bilirubin, Total 0.55 mg/dL (0.2-1.0); CO2 24.9 mmol/L (21.0-32.0); CREATININE 1.1 mg/dL (0.55-1.02); Calcium 9.4 mg/dL (8.5-10.1); Chloride 105 mmol/L (98-107); Estimated GFR 56.11 (mL/min/1.73m2); Glucose 166 mg/dL (74-106); Magnesium 1.9 mg/dL (1.8-2.4); Potassium 4.1 mmol/L (3.5-5.1); Sodium 142 mmol/L (136-145)
[2024-04-15 17:07] LABS: Lab Add On Test DONE
[2024-04-15] MEDS: Omnipaque 350 MG/ML 100 ML BTL IJ (17:19)
[2024-04-15] MEDS: Normal Saline - Diluent 50 ML VIAL IJ (17:21)
[2024-04-15 17:22] LABS: Troponin I 72 ng/L (<or=51)
--- NOTE | 2024-04-15 17:30 | DI.RAD_ITS ---
Exam(s) XR CHEST 2V PA LATERAL EXAM: XR CHEST 2V PA LATERAL CLINICAL HISTORY: bradycardia TECHNIQUE: 2D digital imaging was performed. Two views. COMPARISON: CR,XR XR CHEST 2V PA LATERAL from 05/23/2023 FINDINGS: Monitoring leads overlie the chest. HEART: Mildly enlarged Aorta: Mildly ectatic. PULMONARY VASCULATURE: Normal. MEDIASTINUM: Unremarkable. LUNGS: Clear. PLEURAL SPACE: No pleural effusion or pneumothorax. BONE:Unremarkable for age. SOFT TISSUES: Unremarkable. IMPRESSION: No acute abnormality. DATA REPOSITORY: RADIATION DOSE DELIVERED:
[2024-04-15 17:44] LABS: TSH (W/Ref FT4) 2.69 uIU/mL (0.36-3.74)
[2024-04-15 18:04] LABS: Troponin I 69 ng/L (<or=51)
[2024-04-15] MEDS: Amoxicillin 875/Clav. 125 TAB PO (18:38)
[2024-04-15 20:09] LABS: Troponin I 76 ng/L (<or=51)
--- NOTE | 2024-04-15 21:30 | NUR.NOTE ---
IV D/C and pressure applied. Pt referrals explained, questions asked and answered. Pt verbalized understanding.
== END 2024-04-15 21:22 | disposition home or self-care (01) ==
PROVIDERS: Emergency Provider Nurse Practitioner Family; PCP Family Medicine
DX: R10.32 Left lower quadrant pain (principal); K57.32 Diverticulitis of large intestine without perforation or abscess without bleeding; R00.1 Bradycardia, unspecified; I10 Essential (primary) hypertension; E78.5 Hyperlipidemia, unspecified; I25.10 Atherosclerotic heart disease of native coronary artery without angina pectoris; E11.9 Type 2 diabetes mellitus without complications; J44.9 Chronic obstructive pulmonary disease, unspecified; Z85.528 Personal history of other malignant neoplasm of kidney; Z90.5 Acquired absence of kidney; Z79.4 Long term (current) use of insulin; Z79.84 Long term (current) use of oral hypoglycemic drugs; Z79.85 Long-term (current) use of injectable non-insulin antidiabetic drugs; Z79.82 Long term (current) use of aspirin
CPT/HCPCS: 36415; 80053; 93005; 99285; 71046; 74177; 81003; 83735; 84443; 84484; 85025; 93010; 99284; J3490

== ENCOUNTER 2024-06-07 13:21 | Emergency (ER) | payer MEDICARE, MEDICAID, SELFPAY ==
[2024-06-07] VITALS (15 sets, daily range): BP systolic 119–168; BP diastolic 65–77; PULSE 67–90; RESP 14–23; TEMP 36.3–36.8; O2SAT 95–100
--- OUTSIDE RECORDS SUMMARY | 2024-06-07 13:28 | XMS_ITS | Encounter Summary ---
Author Organization [facility] Address [address] [place] [address] Care Team Providers Care Consulting Analyst Name Role Phone Brenda Renee MD Primary Care Provider [phone] Encounter Details Date Type Department Care Team (Late st Contact Info) Description 09/09/[address] [facility] Laboratory Services - [facility] [address] [place], [place] [id number] Brenda Renee MD [facility] [place] [address] Social History Tobacco Use Types Packs/Day Years Used Date Smoking Tobacco: Every Day Cigarettes 1 30 Alcohol Use Standard Drinks/Week Comments Yes 0 (1 standard drink = 0.6 oz pur e alcohol) 1-2 times per year Comments Unknown Sex and Gender Information Value Date Recorded Sex Assigned at Not on file Legal Sex Female 18:37 EST Gender Identity Not on file Sexual Orientation [...] ? ALIZE MANJARREZ ? Accession #: ? [id number] ? : ? 1960 (Age: 50) ??F [...] and electronically signed by: ? Lee Dean, [place](ASCP) ? Report ??Date: 09/15/2011 12:53 HPV with [...] diagnosis. End of Report [facility] 09/09/2011 09/13/2011 us Brenda Renee MD PATHOLOGY ORDERABLES Final Re sult [facility] [address] [place] [address] documented in this encounter Visit Diagnoses Not on filedocumented in this encounter Care Teams Consulting Analyst Relationship Specialty Start Date End Date Brenda Renee MD [address] [place] [address] [place] [address] PCP - General 08/03/10 documented as of this encounter
--- OUTSIDE RECORDS SUMMARY | 2024-06-07 13:28 | XMS_ITS | Encounter Summary ---
Author Organization [facility] Address [address] [place] [address] Care Team Providers Care Estimator Name Role Phone Brenda Canchola MD Primary Care Provider [phone] Encounter Details Date Type Department Care Team (Late st Contact Info) Description 03/10/2021 Lab Requisition [facility] Pathology & Laboratory Medicine - [facility] [address] [place] [address] Torito Coon MD [address] [place] [address] [place] [address] Encounter for other general examination Social History Tobacco Use Types Packs/Day Years Used Date Smoking Tobacco: Every Day Cigarettes 1 30 Alcohol Use Standard Drinks/Week Comments Yes 0 (1 standard drink = 0.6 oz pur e alcohol) 1-2 times per year Interpersonal Safety Answer Date Record ed Physically Hurt Never 02/09/2020 Verbally Threaten Not on file 02/09/2020 Comments Unknown Sex and Gender Information Value [...] explore management options, if applicable. 03/17/2021 12:34 [facility] Final Diagnosis A. STOMACH, ANTRUM, BIOPSY: - No significant pathologic abnormality B. GASTROESOPHAGEAL JUNCTION, BIOPSY: - No significant pathologic abnormality C. COLON, ASCENDING, BIOPSY: - Tubular adenoma D. COLON, DESCENDING, BIOPSY: - No significant pathologic abnormality E. COLON, SIGMOID COLON BIOPSY: - Mildly hyperplastic benign colonic mucosa 03/17/2021 12:34 [facility] Attestation By the signature below, the attending physician certifies that they have 1) personally conducted a gross and/or microscopic examination of the described specimen(s), and/or personally interpreted the results of laboratory testing of the described specimen(s), and 2) personally rendered or confirmed the above diagnosis. 03/17/2021 12:34 [facility] at 1234 Clinical History Constipation, bloating 03/17/2021 12:34 [facility] Gross Description A. Received in [...] 0.1 cm). Submitted entirely in E1. RAEGAN ACOSTA(ASC) 03/10/2021 15:50 03/17/2021 12:34 EDT [facility] Performing Lab [facility] 12:34 EDT [facility] Scanned Images 03/17/2021 12:34 EDT [facility] Tissue ENTIRE SIGMOID COLON / [...] Unknown 03/10/2021 11:05 EDT 03/10/2021 15:29 EDT us Torito Coon MD PATHOLOGY ORDERABLES Fin al Result [facility] [address] [place] [address] documented in this encounter Visit Diagnoses Diagnosis Encounter for other general examination documented in this encounter Care Teams Estimator Relationship Specialty Start Date End Date Brenda Canchola MD [address] [place] [address] [place] [address] PCP - General 08/03/10 documented as of this encounter
--- OUTSIDE RECORDS SUMMARY | 2024-06-07 13:28 | XMS_ITS | Encounter Summary ---
Author Organization [facility] Address [address] [place] [address] Care Team Providers Care Banking Analyst Name Role Phone Unavailable Primary Care Provider Unavailabl e Encounter Details Date Type Department Care Team (Late st Contact Info) Description 08/15/2008 Before PRISM Converted Visit (Maple) [facility] - Maple conversion [address] [place] [address] Brenda Canchola MD [facility] [place] [address] Social History Tobacco Use Types Packs/Day Years Used Date Smoking Tobacco: Never Assessed Comments Unknown Sex and Gender Information Value [...] EST) Specimen Description Cervix, ThinPrep vial [facility] Result Positive for one or more of HPV types 16,18,31,33,35 ,39,45,51,52,5 6,58,59, or 68. These high/intermedi ate risk HPV types are associated with dysplasia and some cervical cancers. [facility] Report Status Final 09/02/2008 [facility] 08/15/2008 8:47 EST 08/27/2008 8:47 EST us Brenda Canchola MD MICROBIOLOGY - GENERAL NHAN TA Final Result [facility] [address] [place] [address] * CYTOPATHOLOGY (08/15/2008 0:00 EST) Pathology Report: CYTOPATHOLOGY REPORT ? Reports generated via electronic interface contain original data; ? however they are lacking the format of the original report. ? Caution should be taken when reading/interpreti ng unformatted reports. ? Name: ? ALIZE MANJARREZ ? Accession #: ? [id number] ? : ? 1960 (Age: 47) ??F [...] ? (LSIL). ? EDUCATIONAL NOTES/RECOMMENDATI ONS ? [facility] recommends following the 2006 Consensus Guidelines for the Management of Women with Abnormal Cervical Cancer Screening Tests (JLGTD, ? 2007;11(4):201-222 ). ??Consensus guidelines are available online at ? www.ASCCP.org. ? Document reviewed and electronically signed by: ? GLADWYN ANGELAMAN MD [facility] ? Report Date: ??08/26/2008 12:02 ? End of Report ? [facility] 08/15/2008 08/19/2008 us Brenda Canchola MD PATHOLOGY ORDERABLES Final Re sult [facility] [address] [place] [address] documented in this encounter Visit Diagnoses Not on filedocumented in this encounter
--- OUTSIDE RECORDS SUMMARY | 2024-06-07 13:28 | XMS_ITS | Encounter Summary ---
Author Organization [facility] Address [address] [place] [address] Care Team Providers Care Typesetting Supervisor Name Role Phone Brenda Canchola MD Primary Care Provider [phone] Reason for Visit * Reason Comments Joint Pain Encounter Details Date Type Department Care Team (Late st Contact Info) Description 08/04/2010 13:00 EST Office Visit [facility] Rheumatology & Immunology - [address] [id number] Del Ni MD [address] [place] [address], [address] [place] [phone] Miguel Leonard MD [address] [place] [phone] Osteoarthritis (Primary Dx) Social History Tobacco Use [...] be very helpful. 3. You can try [place] 3 fatty acids- 2,000 to 3000 mg per day. Talk with your mechanic insulator to make sure this is okay with your plavix and aspirin. 4. We want to get some blood tests and xrays today- we will let you know about the results of these. 5. Follow up as needed. documented in this encounter Ordered Prescriptions Prescription Sig Dispense Quantity Refills Last Filled Start Date End Date meloxicam (MOBIC) 7.5 mg tablet Take 1 [...] It is hard to hold a pen, environmental conservation professor a washcloth or snowblower because it's hard [...] rhythm; S1, S2 present; II/ NICHELLE at SB Skin: Back: No rashes or lesions. Symmetric. [...] with 11 refills 5. Can also try [place] 3 fatty acids, 6814-0743 mg daily but discuss with mechanic insulator first to makesure this is okay with [...] EST) C-Reactive Protein 1.2(H) <1.0 mg/dl [facility] Blood specimen (specimen) 08/04/2010 15:46 EST 08/04/2010 15:49 EST us Del Ni MD CHEMISTRY & BLOOD GAS ORDERAB LES Final Result [facility] [address] [place] [address] * SED. RATE:WESTERGREN (08/04/2010 15:46 EST) Sed. Rate Westergren 14 0 - 30 mm/hr [facility] Blood specimen (specimen) 08/04/2010 15:46 EST 08/04/2010 15:49 EST Del Ni MD HEMATOLOGY & PF4 ORDERABLES F inal Result Performing Organization Address [facility] [place] [address] * VITAMIN D (25,OH) (08/04/2010 15:46 EST) 25OH Vitamin D Tot 46.6 ng/ml [facility] Comment: Reference Range: <10 ng/ml: Deficient 10-30 ng/ml: Insufficient 30-100 ng/ml: Sufficient >100 ng/ml: Toxic Blood specimen (specimen) 08/04/2010 15:46 EST 08/04/2010 15:49 EST Del Ni MD CHEMISTRY & BLOOD GAS ORDERAB LES Final Result Performing Organization Address [facility] [place] [address] * TSH (08/04/2010 15:46 EST) Pathologist [facility] TSH 1.67 0.35 - 5.00 uIU/ml [facility] Blood specimen (specimen) 08/04/2010 15:46 EST 08/04/2010 15:49 EST Del Ni MD CHEMISTRY & BLOOD GAS ORDERAB LES Final Result Performing Organization Address [facility] [place] [address] * HIP UNILATERAL 1 VIEW (08/04/2010 15:00 EST) Anatomical Region Laterality Modality Other 08/04/2010 15:0 0 EST 08/05/2010 14:54 EST Narrative 08/05/2010 14:54 EST Two views of the left hand, 2 views of the right hand, AP ortho pelvis, and frog-leg lateral views of both hips dated Aug 04, 2010. Clinical history: 715.32-[id number]-K6. bilateral hand pain and swelling. Bilateral hip [...] hips dated Aug 04, 2010. Clinical history: 715.47-[id number]-Z5. bilateral hand pain and swelling. Bilateral hip [...] lumbar spine. Soft tissues are grossly unremarkable. us Del Ni MD IMG DIAGNOSTIC IMAGING ORDERA BLES Final Result * HIP UNILATERAL 1 VIEW (08/04/2010 15:00 EST) Anatomical Region Laterality Modality Other 08/04/2010 15:0 0 EST 08/05/2010 14:54 EST Narrative 08/05/2010 14:54 EST Two views of the left hand, 2 views of the right hand, AP ortho pelvis, and frog-leg lateral views of both hips dated Aug 04, 2010. Clinical history: 715.41-ISLCQGTQIPCPSI-Q3. bilateral hand pain and swelling. Bilateral hip [...] hips dated Aug 04, 2010. Clinical history: 715.53-PQEYZRZGUYYVGA-Y7. bilateral hand pain and swelling. Bilateral hip [...] lumbar spine. Soft tissues are grossly unremarkable. us Del Ni MD IMG DIAGNOSTIC IMAGING ORDERA BLES Final Result * PELVIS 1 OR 2 VIEWS (08/04/2010 15:00 EST) Anatomical Region Laterality Modality Other 08/04/2010 15:0 0 EST 08/05/2010 14:54 EST Narrative 08/05/2010 14:54 EST Two views of the left hand, 2 views of the right hand, AP ortho pelvis, and frog-leg lateral views of both hips dated Aug 04, 2010. Clinical history: 715.81-VNEKVUUSEMSDKR-S4. bilateral hand pain and swelling. Bilateral hip [...] hips dated Aug 04, 2010. Clinical history: 715.07-YULDWHDQCVGSJU-X5. bilateral hand pain and swelling. Bilateral hip [...] lumbar spine. Soft tissues are grossly unremarkable. us Del Ni MD IMG DIAGNOSTIC IMAGING ORDERA BLES Final Result * HAND 2 VIEWS (08/04/2010 15:00 EST) Anatomical Region Laterality Modality Other 08/04/2010 15:0 0 EST 08/05/2010 14:54 EST Narrative 08/05/2010 14:54 EST Two views of the left hand, 2 views of the right hand, AP ortho pelvis, and frog-leg lateral views of both hips dated Aug 04, 2010. Clinical history: 715.57-SDGLFTESQAZHQL-E0. bilateral hand pain and swelling. Bilateral hip [...] hips dated Aug 04, 2010. Clinical history: 715.55-VQVWPGPWKHQYCF-J6. bilateral hand pain and swelling. Bilateral hip [...] grossly unremarkable. Del Ni MD IMG DIAGNOSTIC IMAGING ORDERA BLES Final Result documented in this encounter Visit Diagnoses Diagnosis Osteoarthritis- Primary Osteoarthrosis, unspecified whether generalized or localized, unspecified site documented in this encounter Historical Medications * This list may reflect changes made after this encounter. albuterol (PROVENTIL HFA, VENTOLIN HFA) 90 mcg/Actuation inhaler Inhale 2 Puffs as directed every 4 hours. fluticasone-salme terol (ADVAIR HFA) 115-21 mcg/Actuation inhaler Inhale 1 [...] needed. added in this encounter Care Teams Typesetting Supervisor Relationship Specialty Start Date End Date Brenda Canchola MD [address] [place] [address] [place] [address] PCP - General 08/03/10 documented as of this encounter
--- OUTSIDE RECORDS SUMMARY | 2024-06-07 13:28 | XMS_ITS | Encounter Summary ---
Author Organization [facility] Address [address] [place] [address] Care Team Providers Care Paper Products Supervisor Name Role Phone Unavailable Primary Care Provider Unavailabl e Encounter Details Date Type Department Care Team (Late st Contact Info) Description 03/11/2009 Orders Only [facility] Laboratory Services - [facility] ([facility]) [address] [place] [address] Liss Griffiths MD [address] [place] [address] [place] [address] Social History Tobacco Use Types Packs/Day Years [...] ? ALIZE MANJARREZ ? Accession #: ? [id number] ? : ? 1960 (Age: 48) ??F ?Collect Date: ? 03/11/2009 ? Location: ? [facility] ? Receive Date: ? 03/12/2009 ? Provider: ?LISS GRIFFITHS MD ? Copy to: ? Specimen/Source: ?Pap [...] of Report ? [facility] 03/11/2009 03/12/2009 us Liss Griffiths MD PATHOLOGY ORDERABLES Final Resu lt [facility] [address] [place] [address] documented in this encounter Visit Diagnoses Not on filedocumented in this encounter
--- OUTSIDE RECORDS SUMMARY | 2024-06-07 13:28 | XMS_ITS | Encounter Summary ---
Author Organization [facility] Address [address] [place] [address] Care Team Providers Care Recovery Specialist Name Role Phone Brenda Canchola MD Primary Care Provider [phone] Encounter Details Date Type Department Care Team (Late st Contact Info) Description 11/29/2021 Lab Requisition [facility] Pathology & Laboratory Medicine - [facility] [address] [place], [place] [address] Outr Resulting Lab, Provider Social History Tobacco [...] IGA <1.2 <4.0 U/mL 12/01/2021 12:26 EDT [facility] Comment: A negative result may be due to IgA deficiency and does not rule out celiac disease. ? Negative: ??<4.0 U/mL ? Weak Positive: ??4.0 - 10.0 U/mL ? Positive: ??>10.0 U/mL Results were obtained with the TRELYS QUANTA Lite R h-tTG IgA ELOY assay on the Flowgram DSX. IgA 227 85 - 499 mg/dL 12/01/2021 12:26 EDT [facility] Celiac Disease Interpretation Negative Serology. Celiac disease unlikely. Approximately 10% of patients with celiac disease are seronegative. Patients who are already adhering to a gluten-free diet may also be seronegative. If celiac disease is highly clinically suspected, referral to gastroenterology for additional evaluation is recommended. 12/01/2021 12:26 EDT [facility] Blood VENOUS BLOOD / Unknown 11/29/2021 12:35 EDT 11/29/2021 21:43 EDT us Provider Outr Resulting Lab IMMUNOLOGY AND SEROL OGY ORDERABLES Final Result Performing Organization Address City/State/[facility] Co de Phone Number [facility] [address] [place] [address] documented in this encounter Visit Diagnoses Not on filedocumented in this encounter Care Teams Recovery Specialist Relationship Specialty Start Date End Date Brenda Canchola MD [address] [place] [address] [place] [address] PCP - General 08/03/10 documented as of this encounter
--- OUTSIDE RECORDS SUMMARY | 2024-06-07 13:28 | XMS_ITS | Encounter Summary ---
Author Organization [facility] Address [address] [place] [address] Care Team Providers Care Auto Service Dispatcher Name Role Phone Brenda Renee MD Primary Care Provider Encounter Details Date Type Department Care Team (Late st Contact Info) Description 12/18/2012 Results Only [facility] Laboratory Services - [facility] ([facility]) [address] [place], [place] [id number] Brenda Renee MD [facility] [place] [address] Social History Tobacco Use Types [...] ? ALIZE MANJARREZ ? Accession #: ? [id number] ? : ? 1960 (Age: 52) ??F [...] and electronically signed by: ? Brenda Chang, [facility](ASCP) ? Report ??Date: 12/26/2012 13:52 HPV with Pap Test ? Date Ordered: ? 12/25/2012 ? Status: ?? Signed Out ?Date Complete: ? 12/28/2012 ? By: ??System Interface ? Date Reported: ? 12/28/2012 ? Interpretation RESULT: Negative for HPV. No E6 or E7 mRNA is detected from HPV types 16,18,31,33,35, 39,45,51,52,56,58, 59,66, and 68 by eddy current inspector mediated amplification. Comments Document reviewed and electronically signed by: ? System Interface ? Report date: 12/28/2012 By the signature above, the attending physician certifies that he/she has personally conducted a gross and/or microscopic examination of the described specimens and rendered or confirmed the above diagnosis. End of Report [facility] 12/18/2012 12/19/2012 us Brenda Renee MD PATHOLOGY ORDERABLES Final Re sult [facility] [address] [place] [address] documented in this encounter Visit Diagnoses Not on filedocumented in this encounter Care Teams Auto Service Dispatcher Relationship Specialty Start Date End Date Brenda Renee MD [address] [place] [address] [place] [address] PCP - General 08/03/10 documented as of this encounter
--- OUTSIDE RECORDS SUMMARY | 2024-06-07 13:28 | XMS_ITS | Encounter Summary ---
Author Organization [facility] Address [address] [place] [address] Care Team Providers Care Kennel Operator Name Role Phone Brenda Canchola MD Primary Care Provider [phone] Encounter Details Date Type Department Care Team (Late st Contact Info) Description 01/02/2018 Results Only [facility] [phone] Nadir Hernandez, [employer] [address] [place] [address] Social History Tobacco Use Types Packs/Day Years [...] ? ALIZE MANJARREZ ? Accession #: ? [id number] ? : ? 1960 (Age: 57) ??F ?Collect Date: ? 01/02/2018 ? Location: ? [facility] ? Receive Date: ? 01/04/2018 ? Provider: NADIR HERNANDEZ METALLIC YARN SLITTING MACHINE OPERATOR- Copy to: ? Final Report SPECIMEN ADEQUACY [...] types 16,18,31,33,35, 39,45,51,52,56,58, 59,66, and 68 by graphics artist mediated amplification. Comments Document reviewed and electronically signed by: ? System Interface ? Report date: 01/23/2018 By the signature above, the attending physician certifies that he/she has personally conducted a gross and/or microscopic examination of the described specimens and rendered or confirmed the above diagnosis. End of Report [facility] 01/02/2018 01/04/2018 us Nadir Hernandez [employer] PATHOLOGY ORDERABLES Final Res ult [facility] [address] [place] [address] documented in this encounter Visit Diagnoses Not on filedocumented in this encounter Care Teams Kennel Operator Relationship Specialty Start Date End Date Brenda Canchola MD [address] [place] [address] [place] [address] PCP - General 08/03/10 documented as of this encounter
--- OUTSIDE RECORDS SUMMARY | 2024-06-07 13:28 | XMS_ITS | Encounter Summary ---
Author Organization [facility] Address [address] [place] [address] Care Team Providers Care Manager Fitness Name Role Phone Brenda Renee MD Primary Care Provider [phone] Encounter Details Date Type Department Care Team (Late st Contact Info) Description 01/24/2014 Results Only [facility] Laboratory Services - [facility] ([facility]) [address] [place], [place] [phone] Brenda Renee MD [facility] [place] [address] Social History Tobacco Use Types [...] ? ALIZE MANJARREZ ? Accession #: ? [id number] ? : ? 1960 (Age: 53) ??F [...] types 16,18,31,33,35, 39,45,51,52,56,58, 59,66, and 68 by search engine optimizer mediated amplification. Comments Document reviewed and electronically signed by: ? System Interface ? Report date: 02/04/2014 By the signature above, the attending physician certifies that he/she has personally conducted a gross and/or microscopic examination of the described specimens and rendered or confirmed the above diagnosis. End of Report [facility] 01/24/2014 01/28/2014 us Brenda Renee MD PATHOLOGY ORDERABLES Final Re sult [facility] [address] [place] [address] documented in this encounter Visit Diagnoses Not on filedocumented in this encounter Care Teams Manager Fitness Relationship Specialty Start Date End Date Brenda Renee MD [address] [place] [address] [place] [address] PCP - General 08/03/10 documented as of this encounter
--- OUTSIDE RECORDS SUMMARY | 2024-06-07 13:28 | XMS_ITS | Encounter Summary ---
Author Organization [facility] Address [address] [place] [address] Care Team Providers Care Cell Tester Name Role Phone Brenda Canchola MD Primary Care Provider [phone] Encounter Details Date Type Department Care Team (Late st Contact Info) Description 02/05/2019 Historical Results Only [facility] Radiology Results [address] [place] [address] Unknown, Provider, MD Social History Tobacco Use Types Packs/Day [...] MD ? CC: ? Transcribed Date/Time: 02/05/2019 (8818) ? Exhaust And Muffler Repairer: ? Printed Date/Time: 03/27/2019 (1818) ? PAGE 2 ? Signed Report ? [...] Doris Posadas MD CC: Transcribed Date/Time: 02/05/2019 (3628) Exhaust And Muffler Repairer: Printed Date/Time: 03/27/2019 (7323) PAGE 2 Signed Report Ruby Frederick MD IMG CT ORDERABLES Final Result * (ABNORMAL) POCT GLUCOSE (02/05/2019 19:27 EDT) Glucose, POC 121(H) 70 - 100 mg/dL 02/05/2019 19:31 EDT [facility] 02/05/2019 19:2 7 EDT 02/05/2019 19:31 EDT Nathan Michael MD POINT OF CARE TEST ORDERABLES Fi nal Result [facility] * US EXTREMITY (02/05/2019 15:12 [...] MD ? CC: ? Transcribed Date/Time: 02/05/2019 (1515) ? Exhaust And Muffler Repairer: ? Printed Date/Time: 03/27/2019 (1817) ? PAGE 1 ? Signed Report ? Procedure Note Tay Velazquez MD - 05/14/2019 EXAM: ULTRASOUND/DOPPLER VEIN LOWER EXT B EX. D/ (7765) CLINICAL INFORMATION: SBLE - Swelling bilat. lower [...] Velazquez MD CC: Transcribed Date/Time: 02/05/2019 (1515) Exhaust And Muffler Repairer: Printed Date/Time: 03/27/2019 (1817) PAGE 1 Signed Report Ruby Frederick MD [facility] ORDERABLES Final Result * TROPONIN I (02/05/2019 13:30 EDT) Troponin I (ng/mL) <0.034 0.000 - 0.034 ng/mL 02/05/2019 14:06 EDT [facility] Comment: Interpretation comments: ??Cutoff for [...] EDT Ruby Frederick MD CHEMISTRY & BLOOD GAS ORDERABLES Final Result Performing Organization Address [facility] Phone Number [facility] * (ABNORMAL) POCT GLUCOSE (02/05/2019 11:54 EDT) Glucose, POC 223(H) 70 - 100 mg/dL 02/05/2019 11:57 EDT [facility] 02/05/2019 11:5 4 EDT 02/05/2019 11:57 EDT Nathan Michael MD POINT OF CARE TEST ORDERABLES Fi nal Result Performing Organization Address [facility] de Phone Number [facility] * (ABNORMAL) POCT GLUCOSE (02/05/2019 8:02 EDT) Glucose, POC 138(H) 70 - 100 mg/dL 02/05/2019 8:03 EDT [facility] 02/05/2019 8:02 EDT 02/05/2019 8:03 EDT Nathan Michael MD POINT OF CARE TEST ORDERABLES Fi nal Result Performing Organization Address [facility]/ZIP Co de Phone Number [facility] * TRANSTHORACIC ECHO (TTE) COMPLETE (02/05/2019 7:06 EDT) Anatomical Region Laterality Modality Ultrasound 02/05/2019 7:06 EDT Narrative 02/05/2019 7:06 EDT ?[facility] ?[address] [place], [place] [address] ? [id number] ? E C H O C A R D I O G R A M ? R E P O R T NAME: JOSSELINEALIZE ? : 58 ? LOCATION: 2S ? TELEPHONE: [phone] ?MR#: [id number] ? *[facility]* *[facility]* [address] [place] [address] Date of study: 02/05/2019 Transthoracic Echocardiography M-mode, [...] AM. Test stop time: ??07:56 AM. PERFORMING ??[facility] ORDERING ?Nathan Michael REFERRING ?? Nathan Michael *PROCEDURE DATA* Procedure information: ??The patient was identified by two identifiers. This study was interpreted by [facility]. Pertinent images and digital data are archived for permanent storage and are available for subsequent review. No prior study was available for comparison. ??Study status: Routine. Transthoracic echocardiography. ??M-mode, complete 2D, complete ?[facility] ?[address] [place], [place] [address] ? [id number] ? E C H O C A R D I O G R A M ? R E P O R T NAME: ALIZE MANJARREZ ? : 58 ? LOCATION: 2S ? TELEPHONE: [phone] ?MR#: [id number] ? spectral Doppler, and color Doppler. A Transthoracic Echocardiogram was performed. Scanning was performed from the parasternal, apical, subcostal, and suprasternal notch acoustic windows. Images were obtained using a [facility] IE33 2 cardiac ultrasound machine. Image quality [...] cava: The vessel was normal in size. ?[facility] ?[address] [place], [place] [address] ? [id number] ? E C H O C A R D I O G R A M ? R E P O R T NAME: ALIZE MANJARREZ ? : 58 ? LOCATION: 2S ? TELEPHONE: [phone] ?MR#: [id number] ? Measurements Left ventricle ?Value ?Reference LV [...] S 2 ?? LA/aortic root ratio ?1.25 ?[facility] ?[address] [place], [place] [address] ? [id number] ? E C H O C A R D I O G R A M ? R E P O R T NAME: ALIZE MANJARREZ ? : [birth year] ? LOCATION: 2S ? TELEPHONE: [phone] ?MR#: [id number] ? Mitral valve ?Value ?Reference Mitral E/A [...] Procedure Note Rasta Davis MD - 04/28/2019 [facility] [address] [place], [place] [address] [id number] E C H O C A R D I O G R A M R E P O R T NAME: ALIZE MANJARREZ : 58LOCATION: 2S TELEPHONE: [phone] MR#: [id number] [id number] *[facility]* *[facility]* [address] [place] [address] Date of study: 02/05/2019 Transthoracic Echocardiography M-mode, [...] AM. Test stop time: 07:56 AM. PERFORMING [facility] ORDERING Nathan Michael REFERRING Nathan Michael *PROCEDURE DATA* Procedure information: The patient was identified by two identifiers. This study was interpreted by [facility]. Pertinent images and digital data are archived for permanent storage and are available for subsequent review. No prior study was available for comparison. Study status: Routine. Transthoracic echocardiography. M-mode, complete 2D, complete [facility] [address] [place] [address] [id number] E C H O C A R D I O G R A M R E P O R T NAME: ALIZE MANJARREZ : 58LOCATION: 2S TELEPHONE: [phone] MR#: [id number] spectral Doppler, and color Doppler. A Transthoracic Echocardiogram was performed. Scanning was performed from the parasternal, apical, subcostal, and suprasternal notch acoustic windows. Images were obtained using a [facility] IE33 2 cardiac ultrasound machine. Image quality [...] cava: The vessel was normal in size. [facility] [address] [place], [place] [address] X4280 E C H O C A R D I O G R A M R E P O R T NAME: ALIZE MANJARREZ : 58LOCATION: 2S TELEPHONE: [phone] MR#: [id number] [facility]#:[id number] Measurements Left ventricle Value Reference LV ID, [...] ml/m S 2 LA/aortic root ratio 1.25 [facility] [address] [place], [place] [address] [id number] E C H O C A R D I O G R A M R E P O R T NAME: ALIZE MANJARREZ MONIE: 58LOCATION: 2S TELEPHONE: [phone] MR#: [id number] [facility]#:[id number] Mitral valve Value Reference Mitral E/A ratio, [...] Electronically signed by Rasta Davis 02/05/2019 09:50 us Jumana Grey MD CARDIAC ECHO ORDERABLES Madelin mobley Result * MAGNESIUM (02/05/2019 6:45 EDT) Pathologist [facility] Magnesium 2.30 1.7 - 2.8 mg/dL 02/05/2019 7:46 EDT [facility] 02/05/2019 6:45 EDT 02/05/2019 6:52 EDT Nathan Michael MD CHEMISTRY & BLOOD GAS ORDERABLES Final Result [facility] * (ABNORMAL) LIPID PROFILE (INCLUDES CHOLESTEROL, TRIGLYCERIDES, HDL, LDL) (02/05/2019 6:45 EDT) Triglyceride 181 <150 mg/dL 02/05/2019 7:46 EDT [facility] Comment: Adult: Normal: ?<150 mg/dl ? Borderline High: 150-199 mg/dl ? High: ?200-499 mg/dl ? Very High: >jd=856 Cholesterol 129 <200 mg/dL 02/05/2019 7:46 [facility] Comment: Acceptable: ??<200 Borderline: ??200-239 High: ?> or = 240 Chol/HDL Ratio 4.1 0 - 4.5 02/05/2019 7:46 T [facility] Comment: DESIRABLE RATIO IS LESS THAN 4.1 PATIENTS ARE CONSIDERED AT RISK: WOMEN RATIO >5 MEN RATIO >6 FASTING? - [facility] Unknown 9 7:54 [facility] HDL 31(L) 40 - 60 mg/dL 02/05/2019 7:46 [facility] Comment: ?? Reference Range Low: ? < 40 ??mg/dL Normal: ??40-60 mg/dL High: ?>= 60 mg/dL LDL CHOLESTEROL - [facility] 62 60 - 100 mg/dL 02/05/2019 7:46 [facility] Non HDL Cholesterol 98 mg/dl 02/05/2019 7:46 [facility] Comment: Desirable: ?Less than 130 Borderline High: ??130-159 High: ? 160-189 Very High: ?Greater than or equal to 190 02/05/2019 6:45 EDT 02/05/2019 6:52 EDT us Nathan Michael MD CHEMISTRY & BLOOD GAS ORDERABLES Final Result [facility] * (ABNORMAL) COMPREHENSIVE METABOLIC PANEL (CMP) (02/05/2019 6:45 EDT) Albumin % 3.0(L) 3.4 - 4.9 g/dL 02/05/2019 7:46 EDT [facility] ALKALINE PHOSPHATASE - [facility] 53 38 - 126 U/L 02/05/2019 7:46 [facility] BILIRUBIN TOTAL 0.9 0.2 - 1.3 mg/dL 02/05/2019 7:46 [facility] BUN - [facility] 14 10 - 26 mg/dL 02/05/2019 7:46 [facility] CALCIUM - [facility] 8.9 8.5 - 10.5 mg/dL 02/05/2019 7:46 [facility] Chloride 101 96 - 110 mmol/L 02/05/2019 7:46 [facility] CO2 Total 29 22 - 32 mEq/L 02/05/2019 7:46 [facility] CREATININE 0.65 0.52 - 1.04 mg/dL 02/05/2019 7:46 [facility] eGFR >60 02/05/2019 7:46 [facility] Comment: Chronic renal impairment is defined as GFR <60 Multiply result by 1.210 for patients. eGFR calculated using the IDMS-traceable MDRD Study Equation. ??(effective 05/12/2014) Anion Gap 5 0 - 18 02/05/2019 7:46 [facility] GLUCOSE - [facility] 136(H) 70 - 100 mg/dL 02/05/2019 7:46 [facility] Potassium 4.3 3.5 - 5.0 mEq/L 02/05/2019 7:46 [facility] Sodium 135(L) 136 - 145 mEq/L 02/05/2019 7:46 [facility] TOTAL PROTEIN - [facility] 5.3(L) 6.2 - 8.2 gm/dL 02/05/2019 7:46 [facility] SGOT/AST - [facility] 85(H) 14 - 36 U/L 02/05/2019 7:46 [facility] SGPT/ALT - [facility] 118(H) 9 - 52 U/L 9 7:46 [facility] 02/05/2019 6:45 EDT 02/05/2019 6:52 EDT Nathan Michael MD CHEMISTRY & BLOOD GAS ORDERABLES Final Result Performing Organization Address [facility] Co de Phone Number [facility] * (ABNORMAL) TROPONIN I (02/05/2019 6:45 EDT) [facility] Troponin I (ng/mL) 0.038(HH) 0.000 - 0.034 ng/mL 02/05/2019 8:03 EDT [facility] Comment: Result called to EBONY [...] EDT Nathan Michael MD CHEMISTRY & BLOOD GAS ORDERABLES Final Result Performing Organization Address [facility] de Phone Number [facility] * HEPATITIS C AB W REFLEX TO HCV RNA BY PCR (02/05/2019 6:45 EDT) [facility] HEPATITIS C AB W/REFLEX - [facility] Negative 02/05/2019 8:14 EDT [facility] Comment:Expected Values: Neg ative. 02/05/2019 6:45 EDT 02/05/2019 6:52 EDT Nathan Michael MD CHEMISTRY & BLOOD GAS ORDERABLES Final Result Performing Organization Address [facility] de Phone Number [facility] * HEPATITIS B SURFACE ANTIGEN (02/05/2019 6:45 EDT) [facility] Hep B Surface Ag Negative 02/05/2019 8:14 EDT [facility] Comment: Expected Values: ??Negative. The results of this assay can be falsely lowered due to the consumption of Biotin. 02/05/2019 6:45 EDT 02/05/2019 6:52 EDT us Nathan Michael MD CHEMISTRY & BLOOD GAS ORDERABLES Final Result [facility] * COMPLETE BLOOD COUNT WITH DIFFERENTIAL (AUTO) (02/05/2019 6:45 EDT) ABSOLUTE NEUTROPHIL COUN - [facility] 6.5 2.2 - 8.85 10e3/uL 02/05/2019 7:21 [facility] BASO # - [facility] 0.01 0.01 - 0.11 10e/uL 02/05/2019 7:21 [facility] BASO % - [facility] 0 0 - 2 % 02/05/2019 7:21 [facility] EOS # - [facility] 0.14 0.03 - 0.61 10e3/ul 02/05/2019 7:21 [facility] EOS % - [facility] 1 0 - 5 % 02/05/2019 7:21 [facility] GRAN % - [facility] 63.7 40 - 80 % 02/05/2019 7:21 [facility] HEMATOCRIT - [facility] 38.1 34.9 - 44.4 % 02/05/2019 7:21 [facility] HEMOGLOBIN - [facility] 12.9 11.6 - 15.2 g/dl 02/05/2019 7:21 [facility] IG# - [facility] 0.08 0 - 0.7 10e3/uL 02/05/2019 7:21 [facility] IG% - [facility] 0.8 0 - 0.9 % 02/05/2019 7:21 [facility] LYMPH # - [facility] 2.8 1.09 - 3.3 10e3/ul 02/05/2019 7:21 [facility] LYMPH% - [facility] 26.9 20 - 40 % 02/05/2019 7:21 [facility] MEAN CORPUSCULAR HGB - [facility] 29.5 26.7 - 33.3 pg 02/05/2019 7:21 [facility] MEAN CORPUSCULAR HGB CONC - [facility] 33.9 32.1 - 35.9 g/dL 02/05/2019 7:21 [facility] MEAN CELL VOLUME - [facility] 87.2 81 - 98 fl 02/05/2019 7:21 [facility] MONO # - [facility] 0.7 0.1 - 0.8 10e3/uL 02/05/2019 7:21 [facility] MONO% - [facility] 7.1 0 - 12 % 02/05/2019 7:21 [facility] PLATELET COUNT 314 141 - 377 10e3/ul 02/05/2019 7:21 [facility] RED BLOOD COUNT - [facility] 4.37 3.86 - 5.04 10e3/ul 02/05/2019 7:21 [facility] RED CELL DISTRI WIDTH - [facility] 14.4 <14.7 % 02/05/2019 7:21 [facility] WHITE BLOOD COUNT - [facility] 10.3 4.0 - 12.4 e3/ul 02/05/2019 7:21 [facility] 02/05/2019 6:45 EDT 02/05/2019 6:52 EDT us Nathan Michael MD HEMATOLOGY & PF4 ORDERABLES Madelin l Result [facility] * (ABNORMAL) POCT GLUCOSE (02/05/2019 0:02 EDT) [facility] Glucose, POC 121(H) 70 - 100 mg/dL 02/05/2019 0:43 EDT [facility] 02/05/2019 0:02 EDT 02/05/2019 0:43 EDT us Nathan Michael MD POINT OF CARE TEST ORDERABLES Fi nal Result [facility] documented in this encounter Visit Diagnoses Not on filedocumented in this encounter Care Teams Cell Tester Relationship Specialty Start Date End Date Brenda Canchola MD [address] [place] [address] [place] [address] PCP - General 08/03/10 documented as of this encounter
--- OUTSIDE RECORDS SUMMARY | 2024-06-07 13:28 | XMS_ITS | Encounter Summary ---
Author Organization [facility] Address [address] [place] [address] Care Team Providers Care Cold Mill Inspector Name Role Phone Brenda Canchola MD Primary Care Provider [phone] Encounter Details Date Type Department Care Team (Late st Contact Info) Description 08/04/2010 Results Only Imaging [facility] Rheumatology - [facility], [address] [facility], [facility] [address] [place] [address] Symone Hayden MD [address] [facility], [address] [place] [address] Social History Tobacco Use Types [...] hips dated Aug 04, 2010. Clinical history: 715.32-[id number]. bilateral hand pain and swelling. Bilateral hip [...] hips dated Aug 04, 2010. Clinical history: 715.16-[id number]. bilateral hand pain and swelling. Bilateral hip [...] grossly unremarkable. Symone Hayden MD IMG DIAGNOSTIC IMAGING ORDERA BLES Final Result documented in this encounter Visit Diagnoses Not on filedocumented in this encounter Care Teams Cold Mill Inspector Relationship Specialty Start Date End Date Brenda Canchola MD [address] [place] [address] [place] [address] PCP - General 08/03/10 documented as of this encounter
--- OUTSIDE RECORDS SUMMARY | 2024-06-07 13:28 | XMS_ITS | Encounter Summary ---
Author Organization [facility] Address [address] [place] [address] Care Team Providers Care Water/Wastewater Project Manager Name Role Phone Brenda Canchola MD Primary Care Provider [phone] Encounter Details Date Type Department Care Team (Latest Contact Info) Description 02/04/2019 10:07 EDT - 02/04/2019 23:59 EDT Hospital Encounter [facility] [address] [place] [address] Unknown, Provider, MD Discharge Disposition: Home or Self Care Social [...] this encounter Medications at Time of Discharge albuterol (PROVENTIL HFA, VENTOLIN HFA) 90 mcg/Actuation inhaler Inhale 2 Puffs as directed every 4 hours. aspirin 325 mg tablet Take 325 mg by mouth every 6 hours as needed. atorvastatin (LIPITOR) 10 mg tablet Take 10 mg by mouth daily. clopidogrel (PLAVIX) 75 mg tablet Take 75 mg by mouth daily. fluticasone-salme terol (ADVAIR HFA) 115-21 mcg/Actuation inhaler [...] Code Departure Means Destination Home or Self Assisted documented in this encounter Plan of Treatment Not on file documented as of this encounter Visit Diagnoses Not on filedocumented in this encounter Care Teams Water/Wastewater Project Manager Relationship Specialty Start Date End Date Brenda Canchola MD [facility] [facility] [place] [address] PCP - General 08/03/10 documented as of this encounter
--- OUTSIDE RECORDS SUMMARY | 2024-06-07 13:28 | XMS_ITS | Encounter Summary ---
Author Organization [facility] Address [address] [place] [address] Care Team Providers Care Chemical Operations And Training Name Role Phone Brenda Renee MD Primary Care Provider [phone] Encounter Details Date Type Department Care Team (Late st Contact Info) Description 09/10/2010 Results Only [facility] Laboratory Services - [facility] ([facility]) [address] [place], [place] [id number] Brenda Renee MD [address] [place] [address] [place] [address] Social History Tobacco Use Types [...] ? ALIZE MANJARREZ ? Accession #: ? [id number] ? : ? 1960 (Age: 49) ??F ?Collect Date: ? 09/10/2010 ? Location: ? [facility] ? Receive Date: ? 09/13/2010 ? Provider: BRENDA RENEE MD ? Copy [...] Report ? [facility] 09/10/2010 09/13/2010 us Brenda Renee MD PATHOLOGY ORDERABLES Final Re sult Performing Organization Address City/State/[facility] Co de Phone Number [facility] [address] [place] [address] documented in this encounter Visit Diagnoses Not on filedocumented in this encounter Care Teams Chemical Operations And Training Relationship Specialty Start Date End Date Brenda Renee MD [address] [place] [address] [place] [address] PCP - General 08/03/10 documented as of this encounter
--- OUTSIDE RECORDS SUMMARY | 2024-06-07 13:28 | XMS_ITS | Referral Summary ---
Author Organization [facility] Address [address] [place] [address] Care Team Providers Care Touch Up Edger Name Role Phone Brenda Canchola MD Primary Care Provider Allergies Active Allergy Reactions Criticality Noted Date Comments Azithromycin 08/04/2010 Codeine 08/04/2010 Ibuprofen 08/04/2010 Stomach upset Lisinopril 08/04/2010 cough Medications aspirin 325 mg tablet Take 325 mg [...] mg by mouth 3 times daily. Active fluticasone-deven meterol (ADVAIR HFA) 115-21 mcg/Actuation inhaler Inhale 1 [...] 6:45 EDT) HEPATITIS C AB W/REFLEX - [facility] Negative 02/05/2019 8:14 EDT [facility] Comment:Expected Values: Neg ative. 02/05/2019 6:45 EDT 02/05/2019 6:52 EDT Nathan Michael MD CHEMISTRY & BLOOD GAS ORDERABLES Final Result [facility] from Last 3 Months or Most Recently Relevant to Health Maintenance Insurance [place]ICAID [place] Care Teams Touch Up Edger Relationship Specialty Start Date End Date Brenda Canchola MD [address] [place] [address] [place] [address] PCP - General 08/03/10
--- OUTSIDE RECORDS SUMMARY | 2024-06-07 13:28 | XMS_ITS | Encounter Summary ---
Author Organization [facility] Address [address] [place] [address] Care Team Providers Care Answering Service Telephone Operator Name Role Phone Brenda Canchola MD Primary Care Provider [phone] Encounter Details Date Type Department Care Team (Late st Contact Info) Description 10/14/2021 Lab Requisition [facility] Pathology & Laboratory Medicine - [facility] [address] [place], [place] [id number] Outr Resulting Lab, Provider Social History Tobacco [...] 10/13/2021 18:4 0 EDT 10/14/2021 17:01 EDT us Provider Outr Resulting Lab MICROBIOLOGY - GENER AL ORDERABLES Final Result Performing Organization Address City/[facility]/ZIP Co de Phone Number [facility] [address] [place] [address] * COVID-19 TESTING (10/13/2021 18:40 EDT) COVID-19 rt-PCR Result Negative Negative 10/15/2021 11:43 EDT [facility] Comment: This test has not [...] performed using the flaquito SARS-CoV-2 assay ([employer] on the Flaquito 6800 System Performing Lab [employer] [address] [facility] 10/15/2021 11:43 EDT [facility] Swab 10/13/2021 18:4 0 EDT 10/14/2021 17:01 EDT us Provider Outr Resulting Lab MICROBIOLOGY - GENER AL ORDERABLES Final Result Performing Organization Address [facility] Co de Phone Number [facility] [address] [place] [address] documented in this encounter Visit Diagnoses Not on filedocumented in this encounter Care Teams Answering Service Telephone Operator Relationship Specialty Start Date End Date Brenda Canchola MD [address] [place] [address] [place] [address] PCP - General 08/03/10 documented as of this encounter
--- OUTSIDE RECORDS SUMMARY | 2024-06-07 13:28 | XMS_ITS | Clinical Summary ---
Author Organization [facility] Address [address] [place] [address] Care Team Providers Care Doctor Of Podiatric Medicine Name Role Phone Brenda Canchola MD Primary Care Provider [phone] Allergies Active Allergy Reactions Criticality Noted Date [...] History Medical History Date Comments Heart attack ([facility]) 2009 cath with 4 stents Diabetes mellitus ([facility]) bor derline Asthma Hypertension Depression Anxiety [...] Health Maintenance Due Date Last Done Comments COVID-19 Vaccine (2023-25 season) 2024 RSV Immunization ( o r 60+ Years) (1 - 1-dose 75+ series) 11/11/2034 Hepatitis C Screen Completed 02/05/2019 Procedures Procedure Name Priority Date/Time Associated Diagnosis Comments HEPATITIS C AB W REFLEX TO HCV RNA BY PCR Routine 02/05/2019 6:45 EDT from Last 3 Months or Most Recently Relevant to Health Maintenance Results * HEPATITIS C AB W REFLEX TO HCV RNA BY PCR (02/05/2019 6:45 EDT) HEPATITIS C AB W/REFLEX - [facility] Negative 02/05/2019 8:14 EDT [facility] Comment:Expected Values: Neg ative. 02/05/2019 6:45 EDT 02/05/2019 6:52 EDT us Nathan Michael MD CHEMISTRY & BLOOD GAS ORDERABLES Final Result [facility] from Last 3 Months or Most Recently Relevant to Health Maintenance Insurance [place]ICAID [place] Care Teams Doctor Of Podiatric Medicine Relationship Specialty Start Date End Date Brenda Canchola MD [address] [place] [address] [place] [address] PCP - General 08/03/10
--- OUTSIDE RECORDS SUMMARY | 2024-06-07 13:28 | XMS_ITS | Encounter Summary ---
Author Organization [facility] Address [address] [place] [address] Care Team Providers Care Manager Corporate Marketing Name Role Phone Unavailable Primary Care Provider Unavailabl e Encounter Details Date Type Department Care Team (Late st Contact Info) Description 04/30/2010 Results Only [facility] Laboratory Services - [facility] ([facility]) [address] [place], [place] [id number] Brenda Canchola MD [address] [place] [address] [address] [place], [place] [id number] Social History Tobacco Use Types Packs/Day Years [...] ? ALIZE MANJARREZ ? Accession #: ? [id number] ? : ? 1960 (Age: 49) ??F ?Collect Date: ? 04/30/2010 ? Location: ? [facility] ? Receive Date: ? 05/03/2010 ? Provider: BRENDA ERISMAN MD ? Copy to: ? Final Report [...] of Report ? [facility] 04/30/2010 05/03/2010 us Brenda Canchola MD PATHOLOGY ORDERABLES Final Re sult [facility] [address] [place] [address] documented in this encounter Visit Diagnoses Not on filedocumented in this encounter
--- OUTSIDE RECORDS SUMMARY | 2024-06-07 13:28 | XMS_ITS | Encounter Summary ---
Author Organization [facility] Address [address] [place] [address] Care Team Providers Care Bill Peddler Name Role Phone Unavailable Primary Care Provider Unavailabl e Encounter Details Date Type Department Care Team (Late st Contact Info) Description 09/15/2008 Before PRISM Converted Visit ([facility]) [facility] Cardiovascular Unit [address] [place] [address] Puja Noland MD [address] [place] [address] Social History Tobacco Use Types [...] ? ALIZE MANJARREZ ? Accession #: ? [id number] ? : ? 1960 (Age: 47) ??F [...] low grade squamous intraepithelial lesion is favored. ??Diesel Engine Operator sections ?? were reviewed at the intradepartmental consultation conference. ??Deeper levels ?? have been examined on blocks (A) and (B) (Morales Fernández). ? Document reviewed and electronically signed by: ? Samantha Fernández MD ? Report ??Date: 09/23/2008 13:33 ? By [...] specimen is submitted intact as (B). ??(MILENA Tessitore)/lgk ? End of Report ? [facility] 09/15/2008 09/15/2008 7:3 8 EDT us Puja Noland MD PATHOLOGY ORDERABLES Final Resul t [facility] [address] [place] [address] documented in this encounter Visit Diagnoses Not on filedocumented in this encounter
--- OUTSIDE RECORDS SUMMARY | 2024-06-07 13:28 | XMS_ITS | Encounter Summary ---
Author Organization [facility] Address [address] [place] [address] Care Team Providers Care Tube Backer Name Role Phone Brenda Canchola MD Primary Care Provider [phone] Encounter Details Date Type Department Care Team (Late st Contact Info) Description 08/04/2010 15:13 EST - 08/04/2010 23:59 EST Hospital Encounter [address] [address] Symone Hayden MD [address] [place] [address], [address] [place] [phone] Osteoarthritis Discharge Disposition: Auto Discharge Social History [...] EST Symone Hayden MD CHEMISTRY & BLOOD GAS ORDERAB LES Final Result [facility] [address] [place] [address] * SED. RATE:WESTERGREN (08/04/2010 15:46 EST) Pathologist [facility] Sed. Rate Roniren 14 0 - 30 mm/hr [facility] Blood specimen (specimen) 08/04/2010 15:46 EST 08/04/2010 15:49 EST us [place] S Libman MD HEMATOLOGY & PF4 ORDERABLES F inal Result Performing Organization Address [facility] Co de Phone Number [facility] [address] [place] [address] * VITAMIN D (25,OH) (08/04/2010 15:46 EST) 25OH Vitamin D Tot 46.6 ng/ml [facility] Comment: Reference Range: <10 ng/ml: Deficient 10-30 ng/ml: Insufficient 30-100 ng/ml: Sufficient >100 ng/ml: Toxic Blood specimen (specimen) 08/04/2010 15:46 EST 08/04/2010 15:49 EST Symone Hayden MD CHEMISTRY & BLOOD GAS ORDERAB LES Final Result Performing Organization Address [facility] Co de Phone Number [address] [address] * TSH (08/04/2010 15:46 EST) Pathologist [facility] TSH 1.67 0.35 - 5.00 uIU/ml [facility] Blood specimen (specimen) 08/04/2010 15:46 EST 08/04/2010 15:49 EST Symone Hayden MD CHEMISTRY & BLOOD GAS ORDERAB LES Final Result Performing Organization Address [facility] de Phone Number [facility] [address] [place] [address] documented in this encounter Visit Diagnoses Diagnosis Osteoarthritis Osteoarthrosis, unspecified whether generalized or localized, unspecified site documented in this encounter Care Teams Tube Backer Relationship Specialty Start Date End Date Brenda Canchola MD [address] [place] [address] [place] [address] PCP - General 08/03/10 documented as of this encounter
--- OUTSIDE RECORDS SUMMARY | 2024-06-07 13:28 | XMS_ITS | Encounter Summary ---
Author Organization [facility] Address [address] [place] [address] Care Team Providers Care Kosher Dietary Service Manager Name Role Phone Brenda Renee MD Primary Care Provider [phone] Encounter Details Date Type Department Care Team (Late st Contact Info) Description 09/21/2011 Results Only [facility] Laboratory Services - [facility] ([facility]) [address] [place] [id number] Liss Griffiths MD [address] [place] [address] [place] [address] Social History Tobacco Use Types Packs/Day Years [...] ? ALIZE MANJARREZ ? Accession #: ? [id number] ? : ? 1960 (Age: 50) ??F [...] Griffiths on 09/26/2011 at 4:20 p.m. (Dr. Dong)/[facility] Document reviewed and electronically signed by: AME CAMPBELL MD Report ??Date: 09/26/2011 16:21 By the signature above, the attending physician certifies that he/she has personally conducted a gross and/or microscopic examination of the described specimens and rendered or confirmed the above diagnosis. Specimen(s) Received: ? Endometrial bx Clinical History: ? Postmenopausal bleeding Gross Description: ? Received in formalin labelled Avila Alize and endometrial bx are approximately 4cc of blood-tinged mucus admixed with clotted blood and red-brown tissue fragments. ??The specimen is submitted entirely as (A1) and (A2) following filtration. ??(Juanjose Mejía/[facility] End of Report [facility] 09/21/2011 09/22/2011 9:0 6 EDT us Liss Griffiths MD PATHOLOGY ORDERABLES Final Resu lt [facility] [address] [place] [address] documented in this encounter Visit Diagnoses Not on filedocumented in this encounter Care Teams Kosher Dietary Service Manager Relationship Specialty Start Date End Date Brenda Renee MD [address] [place] [address] [place] [address] PCP - General 08/03/10 documented as of this encounter
--- OUTSIDE RECORDS SUMMARY | 2024-06-07 13:28 | XMS_ITS | Encounter Summary ---
Author Organization [facility] Address [address] [place] [address] Care Team Providers Care Counter Weigher Name Role Phone Brenda Canchola MD Primary Care Provider Encounter Details Date Type Department Care Team (Late st Contact Info) Description 08/17/2020 Lab Requisition [facility] Pathology & Laboratory Medicine - [address] [address] Outr Resulting Lab, Provider Social History Tobacco [...] Unknown 08/17/2020 12:25 EST 08/17/2020 15:56 EST us Provider Outr Resulting Lab MICROBIOLOGY - GENER AL ORDERABLES Final Result Performing Organization Address City/[facility] Co de Phone Number [facility] [address] [place] [address] * COVID-19 TESTING (08/17/2020 12:25 EST) COVID-19 rt-PCR Result Negative Negative 08/18/2020 15:45 EST [facility] Comment:Negative results do not preclude 2019-nCoV infection and should not be used as the sole basis for treatment or other patient management decisions. Negative results must be combined with clinical observations, patient history, and epidemiological information. Performing Lab [facility] 08/18/2020 15:45 EST [facility] Swab 08/17/2020 12:2 5 EST 08/17/2020 15:56 EST us Provider Outr Resulting Lab MICROBIOLOGY - GENER AL ORDERABLES Final Result Performing Organization Address [facility] Co de Phone Number [facility] [address] [place] [address] documented in this encounter Visit Diagnoses Not on filedocumented in this encounter Care Teams Counter Weigher Relationship Specialty Start Date End Date Brenda Canchola MD [address] [place] [address] [place] [address] PCP - General 08/03/10 documented as of this encounter
--- OUTSIDE RECORDS SUMMARY | 2024-06-07 13:28 | XMS_ITS | Encounter Summary ---
Author Organization [facility] Address [address] [place] [address] Care Team Providers Care Central Office Repairer Supervisor Name Role Phone Brenda Canchola MD Primary Care Provider [phone] Encounter Details Date Type Department Care Team (Late st Contact Info) Description 08/17/2020 Lab Requisition [facility] Pathology & Laboratory Medicine - [address] [id number] Outr Resulting Lab, Provider Social History Tobacco [...] Result (FLARES) Negative Negative 08/17/2020 23:57 EST [facility] FLU B RNA Result (FLBRES) Negative Negative 08/17/2020 23:57 EST [facility] RSV RNA Result (RSVRES) Negative Negative 08/17/2020 23:57 EST [facility] Performing Lab [facility] 08/17/2020 23:57 EST [facility] Swab ENTIRE NASOPHARYNX / Unknown 08/17/2020 12:27 EST 08/17/2020 17:13 EST us Provider Outr Resulting Lab MICROBIOLOGY - GENER AL ORDERABLES Final Result Performing Organization Address City/State/[facility] Co de Phone Number [facility] [address] [place] [address] documented in this encounter Visit Diagnoses Not on filedocumented in this encounter Care Teams Central Office Repairer Supervisor Relationship Specialty Start Date End Date Brenda Canchola MD [address] [place] [address] [place] [address] PCP - General 08/03/10 documented as of this encounter
--- OUTSIDE RECORDS SUMMARY | 2024-06-07 13:28 | XMS_ITS | Encounter Summary ---
Author Organization [facility] Address [address] [place] [address] Care Team Providers Care Technical Applications Scientist Name Role Phone rBenda Canchola MD Primary Care Provider [phone] Encounter Details Date Type Department Care Team (Late st Contact Info) Description 02/04/2019 Historical Results Only [facility] Radiology Results [address] [place], [place] [phone] Kristin Rocha MD [address] [place] [address] Social History Tobacco Use Types [...] 02/04/2019 2 2:36 EDT ETHYL ALCOHOL - [facility] Routine 02/04/2019 20:27 EDT COMPLETE BLOOD COUNT [...] MD ? CC: ? Transcribed Date/Time: 02/04/2019 (2244) ? Commercial Painter: ? Printed Date/Time: 03/27/2019 (1810) ? PAGE 1 ? Signed Report ? Procedure Note Doris Posadas MD - 05/14/2019 EXAM: RADIOLOGY/CHEST PA LAT EX. D/ (2225) CLINICAL INFORMATION: weakness, recent pneumonia EXAM: XR [...] Doris Posadas MD CC: Transcribed Date/Time: 02/04/2019 (224) Commercial Painter: Printed Date/Time: 03/27/2019 (2209) PAGE 1 Signed Report us Kristin Rocha MD IMG DIAGNOSTIC IMAGING ORDERABLES Final Result * CT HEAD WO CONTRAST (02/04/2019 22:36 [...] MD ? CC: ? Transcribed Date/Time: 02/04/2019 (2236) ? Commercial Painter: ? Printed Date/Time: 03/27/2019 (1818) ? PAGE [...] Doris Posadas MD CC: Transcribed Date/Time: 02/04/2019 (9755) Commercial Painter: Printed Date/Time: 03/27/2019 (4823) PAGE 1 Signed Report Kristin Rocha MD IMG CT ORDERABLES Madelin l Result * MAGNESIUM (02/04/2019 20:27 EDT) [facility] Magnesium 2.20 1.7 - 2.8 mg/dL 02/04/2019 21:08 EDT [facility] 02/04/2019 20:2 7 EDT 02/04/2019 20:29 EDT [facility] - 02/04/2019 21:25 EDT AOT: 02/04/19 2105: BNP Kristin Rocha MD CHEMISTRY & BLOOD GAS ORDERABLES Final Result [facility] * ETHYL ALCOHOL - [facility] (02/04/2019 20:27 EDT) [facility] ETHYL ALCOHOL - [facility] <10.0 <10 mg/dL 02/04/2019 21:08 EDT [facility] 02/04/2019 20:2 7 EDT 02/04/2019 20:29 EDT [facility] - 02/04/2019 21:25 EDT AOT: 02/04/19 2105: BNP Kristin Rocha MD CHEMISTRY & BLOOD GAS ORDERABLES Final Result [facility] * (ABNORMAL) COMPREHENSIVE METABOLIC PANEL (CMP) (02/04/2019 20:27 EDT) [facility] Albumin % 3.3(L) 3.4 - 4.9 g/dL 02/04/2019 21:08 EDT [facility] ALKALINE PHOSPHATASE - [facility] 58 38 - 126 U/L 02/04/2019 21:08 EDT [facility] BILIRUBIN TOTAL 0.6 0.2 - 1.3 mg/dL 02/04/2019 21:08 [facility] BUN - [facility] 17 10 - 26 mg/dL 02/04/2019 21:08 [facility] CALCIUM - [facility] 8.8 8.5 - 10.5 mg/dL 02/04/2019 21:08 [facility] Chloride 93(L) 96 - 110 mmol/L 02/04/2019 21:08 [facility] CO2 Total 27 22 - 32 mEq/L 02/04/2019 21:08 [facility] CREATININE 0.77 0.52 - 1.04 mg/dL 02/04/2019 21:08 [facility] eGFR >60 02/04/2019 21:08 [facility] Comment: Chronic renal impairment is defined as GFR <60 Multiply result by 1.210 for patients. eGFR calculated using the IDMS-traceable MDRD Study Equation. ??(effective 05/12/2014) Anion Gap 9 0 - 18 02/04/2019 21:08 [facility] GLUCOSE - [facility] 262(H) 70 - 100 mg/dL 02/04/2019 21:08 [facility] Potassium 3.7 3.5 - 5.0 mEq/L 02/04/2019 21:08 [facility] Sodium 129(L) 136 - 145 mEq/L 02/04/2019 21:08 [facility] TOTAL PROTEIN - [facility] 5.8(L) 6.2 - 8.2 gm/dL 02/04/2019 21:08 [facility] SGOT/AST - [facility] 124(H) 14 - 36 U/L 02/04/2019 21:08 [facility] SGPT/ALT - [facility] 133(H) 9 - 52 U/L 9 21:08 [facility] 02/04/2019 20:2 7 EDT 02/04/2019 20:29 [facility] - 02/04/2019 21:25 EDT AOT: 02/04/19 2105: BNP us Kristin Rocha MD CHEMISTRY & BLOOD GAS ORDERABLES Final Result [facility] * NT PRO BNP (02/04/2019 20:27 EDT) [facility] NT-pro BNP 190 <300 pg/mL 02/04/2019 21:25 EDT [facility] Comment: NT-proBNP values less than [...] 20:2 7 EDT 02/04/2019 20:29 EDT Narrative [facility] - 02/04/2019 21:25 EDT AOT: 02/04/19 2105: BNP Kristin Rocha MD CHEMISTRY & BLOOD GAS ORDERABLES Final Result Performing Organization Address City/[facility]/ZIP Co de Phone Number [facility] * THYROID CASCADE (02/04/2019 20:27 EDT) [facility] TSH 4.05 0.46 - 4.68 uIU/mL 02/04/2019 21:38 EDT [facility] 02/04/2019 20:2 7 EDT 02/04/2019 20:30 EDT Kristin Rocha MD CHEMISTRY & BLOOD GAS ORDERABLES Final Result [facility] * (ABNORMAL) TROPONIN I (02/04/2019 20:27 EDT) [facility] Troponin I (ng/mL) 0.037(HH) 0.000 - 0.034 ng/mL 02/04/2019 21:01 EDT [facility] Comment: Result called to CATHY [...] 20:30 EDT Kristin Rocha MD CHEMISTRY & BLOOD GAS ORDERABLES Final Result Performing Organization Address [facility] Co de Phone Number [facility] * D-DIMER (02/04/2019 20:27 EDT) [facility] D-Dimer 193 <230 ng/mLDDU 02/04/2019 21:20 EDT [facility] Comment: CUTOFF VALUE FOR THE EXCLUSION OF DVT and PE: 230 ng/mL D-dimer units. Any use of the age-adjusted cutoff value is a post-analytic modification of this FDA-approved test and is considered off-label use of the test result. [facility] Laboratory does not have literature to support the validity of an age-adjusted cutoff for our specific assay. 02/04/2019 20:2 7 EDT 02/04/2019 21:06 EDT Kristin Rocha MD HEMATOLOGY & PF4 ORDER SHYLA Final Result Performing Organization Address [facility]/ZIP Co de Phone Number [facility] * (ABNORMAL) COMPLETE BLOOD COUNT WITH DIFFERENTIAL (AUTO) (02/04/2019 20:27 EDT) [facility] ABSOLUTE NEUTROPHIL COUN - [facility] 9.6(H) 2.2 - 8.85 10e3/uL 02/04/2019 20:35 EDT [facility] BASO # - [facility] 0.01 0.01 - 0.11 10e/uL 02/04/2019 20:35 [facility] BASO % - [facility] 0 0 - 2 % 02/04/2019 20:35 [facility] EOS # - [facility] 0.09 0.03 - 0.61 10e3/ul 02/04/2019 20:35 [facility] EOS % - [facility] 1 0 - 5 % 02/04/2019 20:35 [facility] GRAN % - [facility] 68.5 40 - 80 % 02/04/2019 20:35 [facility] HEMATOCRIT - [facility] 37.5 34.9 - 44.4 % 02/04/2019 20:35 [facility] HEMOGLOBIN - [facility] 12.8 11.6 - 15.2 g/dl 02/04/2019 20:35 [facility] IG# - [facility] 0.16 0 - 0.7 10e3/uL 02/04/2019 20:35 [facility] IG% - [facility] 1.1(H) 0 - 0.9 % 02/04/2019 20:35 [facility] LYMPH # - [facility] 3.1 1.09 - 3.3 10e3/ul 02/04/2019 20:35 [facility] LYMPH% - [facility] 22.5 20 - 40 % 02/04/2019 20:35 [facility] MEAN CORPUSCULAR HGB - [facility] 29.6 26.7 - 33.3 pg 02/04/2019 20:35 [facility] MEAN CORPUSCULAR HGB CONC - [facility] 34.1 32.1 - 35.9 g/dL 02/04/2019 20:35 [facility] MEAN CELL VOLUME - [facility] 86.6 81 - 98 fl 02/04/2019 20:35 [facility] MONO # - [facility] 1.0(H) 0.1 - 0.8 10e3/uL 02/04/2019 20:35 [facility] MONO% - [facility] 7.2 0 - 12 % 02/04/2019 20:35 EDT [facility] PLATELET COUNT 345 141 - 377 10e3/ul 02/04/2019 20:35 EDT [facility] RED BLOOD COUNT - [facility] 4.33 3.86 - 5.04 10e3/ul 02/04/2019 20:35 EDT [facility] RED CELL DISTRI WIDTH - [facility] 14.1 <14.7 % 02/04/2019 20:35 EDT [facility] WHITE BLOOD COUNT - [facility] 14.0(H) 4.0 - 12.4 10e3/ul 02/04/2019 20:35 EDT [facility] 02/04/2019 20:2 7 EDT 02/04/2019 20:30 EDT us Kristin Rocha MD HEMATOLOGY & PF4 ORDER SHYLA Final Result [facility] * (ABNORMAL) POCT GLUCOSE (02/04/2019 19:45 EDT) [facility] Signature Glucose, POC 262(H) 70 - 100 mg/dL 02/04/2019 19:51 EDT [facility] 02/04/2019 19:4 5 EDT 02/04/2019 19:51 EDT us Mack Varghese MD POINT OF CARE TEST ORDERABLES Final Result [facility] documented in this encounter Visit Diagnoses Not on filedocumented in this encounter Care Teams Technical Applications Scientist Relationship Specialty Start Date End Date Brenda Canchola MD [address] [place] [address] [place] [address] PCP - General 08/03/10 documented as of this encounter
--- OUTSIDE RECORDS SUMMARY | 2024-06-07 13:28 | XMS_ITS | Encounter Summary ---
Author Organization [facility] Address [address] [place] [address] Care Team Providers Care El Teacher Name Role Phone Brenda Canchola MD Primary Care Provider Encounter Details Date Type Department Care Team (Late st Contact Info) Description 10/04/2021 Lab Requisition [facility] Pathology & Laboratory Medicine - [address] [phone] Outr Resulting Lab, Provider Social History Tobacco [...] 10/03/2021 17:2 3 EDT 10/04/2021 21:43 EDT us Provider Outr Resulting Lab MICROBIOLOGY - GENER AL ORDERABLES Final Result Performing Organization Address City/[facility]/ZIP Co de Phone Number [facility] [address] [place] [address] * COVID-19 TESTING (10/03/2021 17:23 EDT) COVID-19 rt-PCR Result Negative Negative 10/05/2021 13:50 EDT [facility] Comment: This test has not [...] performed using the flaquito SARS-CoV-2 assay ([employer] on the Flaquito 6800 System Performing Lab [employer] [address] [facility] 10/05/2021 13:50 EDT [facility] Swab 10/03/2021 17:2 3 EDT 10/04/2021 21:43 EDT us Provider Outr Resulting Lab MICROBIOLOGY - GENER AL ORDERABLES Final Result Performing Organization Address [facility] Co de Phone Number [facility] [address] [place] [address] documented in this encounter Visit Diagnoses Not on filedocumented in this encounter Care Teams El Teacher Relationship Specialty Start Date End Date Brenda Canchola MD [address] [place] [address] [place] [address] PCP - General 08/03/10 documented as of this encounter
--- OUTSIDE RECORDS SUMMARY | 2024-06-07 13:28 | XMS_ITS | Encounter Summary ---
Author Organization [facility] Address [address] [place] [address] Care Team Providers Care Transaction Advisory Services Manager Name Role Phone Brenda Canchola MD Primary Care Provider [phone] Encounter Details Date Type Department Care Team (Late st Contact Info) Description 02/06/2019 Historical Results Only [facility] - [facility] Lab - Main [address] [address] Nathan Michael MD [address] [place] [phone] Social History Tobacco Use Types Packs/Day [...] 70 - 100 mg/dL 02/06/2019 12:09 EDT [facility] 02/06/2019 12:0 7 EDT 02/06/2019 12:09 EDT us Nathan Michael MD POINT OF CARE TEST ORDERABLES Fi nal Result Performing Organization Address [facility] Co de Phone Number [facility] * (ABNORMAL) POCT GLUCOSE (02/06/2019 7:50 EDT) Glucose, POC 137(H) 70 - 100 mg/dL 02/06/2019 7:52 EDT [facility] 02/06/2019 7:50 EDT 02/06/2019 7:52 EDT us Nathan Michael MD POINT OF CARE TEST ORDERABLES Fi nal Result Performing Organization Address [facility] Co de Phone Number [facility] * (ABNORMAL) ALT (02/06/2019 6:45 EDT) SGPT/ALT - [facility] 121(H) 9 - 52 U/L 02/06/2019 8:10 EDT [facility] 02/06/2019 6:45 EDT 02/06/2019 6:49 EDT Narrative [facility] - 02/06/2019 8:10 EDT AOT: 02/06/19 0743: AST/ALT us Ruby Frederick MD CHEMISTRY & BLOOD GAS ORDERABLES Final Result Performing Organization Address City/[facility]/ZIP Co de Phone Number [facility] * (ABNORMAL) AST (02/06/2019 6:45 EDT) [facility] SGOT/AST - [facility] 63(H) 14 - 36 U/L 02/06/2019 8:10 EDT [facility] 02/06/2019 6:45 EDT 02/06/2019 6:49 EDT [facility] - 02/06/2019 8:10 EDT AOT: 02/06/19 0743: AST/ALT Ruby Frederick MD CHEMISTRY & BLOOD GAS ORDERABLES Final Result [facility] * MAGNESIUM (02/06/2019 6:45 EDT) [facility] Magnesium 2.20 1.7 - 2.8 mg/dL 02/06/2019 7:24 EDT [facility] 02/06/2019 6:45 EDT 02/06/2019 6:49 EDT [facility] - 02/06/2019 8:10 EDT AOT: 02/06/19 0743: AST/ALT Ruby Frederick MD CHEMISTRY & BLOOD GAS ORDERABLES Final Result [facility] * (ABNORMAL) BASIC METABOLIC PANEL (BMP) (02/06/2019 6:45 EDT) Pathologist [facility] 14 10 - 26 mg/dL 02/06/2019 7:24 EDT [facility] CALCIUM - [facility] 9.5 8.5 - 10.5 mg/dL 02/06/2019 7:24 EDT [facility] Chloride 98 96 - 110 mmol/L 02/06/2019 7:24 EDT [facility] CO2 Total 28 22 - 32 mEq/L 02/06/2019 7:24 EDT [facility] CREATININE 0.68 0.52 - 1.04 mg/dL 02/06/2019 7:24 [facility] eGFR >60 02/06/2019 7:24 T [facility] Comment: Chronic renal impairment is defined as GFR <60 Multiply result by 1.210 for patients. eGFR calculated using the IDMS-traceable MDRD Study Equation. ??(effective 05/12/2014) Anion Gap 7 0 - 18 02/06/2019 7:24 [facility] GLUCOSE - [facility] 137(H) 70 - 100 mg/dL 02/06/2019 7:24 [facility] Potassium 4.3 3.5 - 5.0 mEq/L 02/06/2019 7:24 [facility] Sodium 133(L) 136 - 145 mEq/L 02/06/2019 7:24 [facility] 02/06/2019 6:45 EDT 02/06/2019 6:49 EDT Narrative [facility] - 02/06/2019 8:10 EDT AOT: 02/06/19 0743: AST/ALT us Ruby Frederick MD CHEMISTRY & BLOOD GAS ORDERABLES Final Result [facility] * (ABNORMAL) COMPLETE BLOOD COUNT WITH DIFFERENTIAL (AUTO) (02/06/2019 6:45 EDT) ABSOLUTE NEUTROPHIL COUN - CV 7.7 2.2 - 8.85 10e3/uL 02/06/2019 7:14 [facility] BASO # - [facility] 0.02 0.01 - 0.11 10e/uL 02/06/2019 7:14 [facility] BASO % - [facility] 0 0 - 2 % 02/06/2019 7:14 [facility] EOS # - [facility] 0.10 0.03 - 0.61 10e3/ul 02/06/2019 7:14 [facility] EOS % - [facility] 1 0 - 5 % 02/06/2019 7:14 [facility] GRAN % - [facility] 71.6 40 - 80 % 02/06/2019 7:14 [facility] HEMATOCRIT - [facility] 40.4 34.9 - 44.4 % 02/06/2019 7:14 [facility] HEMOGLOBIN - [facility] 13.4 11.6 - 15.2 g/dl 02/06/2019 7:14 [facility] IG# - [facility] 0.06 0 - 0.7 10e3/uL 02/06/2019 7:14 [facility] IG% - [facility] 0.6 0 - 0.9 % 02/06/2019 7:14 [facility] LYMPH # - [facility] 2.0 1.09 - 3.3 10e3/ul 02/06/2019 7:14 [facility] LYMPH% - [facility] 18.3(L) 20 - 40 % 02/06/2019 7:14 [facility] MEAN CORPUSCULAR HGB - [facility] 29.1 26.7 - 33.3 pg 02/06/2019 7:14 [facility] MEAN CORPUSCULAR HGB CONC - [facility] 33.2 32.1 - 35.9 g/dL 02/06/2019 7:14 [facility] MEAN CELL VOLUME - [facility] 87.6 81 - 98 fl 02/06/2019 7:14 [facility] MONO # - [facility] 0.9(H) 0.1 - 0.8 10e3/uL 02/06/2019 7:14 [facility] MONO% - [facility] 8.4 0 - 12 % 02/06/2019 7:14 [facility] PLATELET COUNT 346 141 - 377 10e3/ul 02/06/2019 7:14 [facility] RED BLOOD COUNT - [facility] 4.61 3.86 - 5.04 10e3/ul 02/06/2019 7:14 [facility] RED CELL DISTRI WIDTH - [facility] 14.7 <14.7 % 02/06/2019 7:14 [facility] WHITE BLOOD COUNT - [facility] 10.8 4.0 - 12.4 10e3/ul 02/06/2019 7:14 [facility] 02/06/2019 6:45 EDT 02/06/2019 6:50 EDT Ruby Frederick MD HEMATOLOGY & PF4 ORDERABLES Madelin mobley Result [facility] documented in this encounter Visit Diagnoses Not on filedocumented in this encounter Care Teams Transaction Advisory Services Manager Relationship Specialty Start Date End Date Brenda Canchola MD [address] [place] [address] [place] [address] PCP - General 08/03/10 documented as of this encounter
--- OUTSIDE RECORDS SUMMARY | 2024-06-07 13:28 | XMS_ITS | Encounter Summary ---
Author Organization [facility] Address [address] [place] [address] Care Team Providers Care Mental Tester Name Role Phone Unavailable Primary Care Provider Unavailabl e Encounter Details Date Type Department Care Team (Late st Contact Info) Description 12/01/2005 Results Only [facility] [facility] [address] [place] [address] Santos Shay MD [address] [place] [address] [address] [place] [phone] Social History Tobacco Use Types Packs/Day Years [...] ? ALIZE MANJARREZ ? Accession #: ? [id number] ? : ? 1960 (Age: 45) ??F [...] entirely submitted as (A1) and (A2). ??(Gwyn Oliveros/[facility] ?? End of Report [facility] 12/01/2005 12/01/2005 15: 25 EDT us Santos Shay MD PATHOLOGY ORDERABLES Final Resu lt [facility] [address] [place] [address] documented in this encounter Visit Diagnoses Not on filedocumented in this encounter
--- OUTSIDE RECORDS SUMMARY | 2024-06-07 13:28 | XMS_ITS | Encounter Summary ---
Author Organization [facility] Address [address] [place] [address] Care Team Providers Care Bpm Architect Name Role Phone Brenda Renee MD Primary Care Provider [phone] Encounter Details Date Type Department Care Team (Late st Contact Info) Description 11/02/2011 Results Only [facility] Services - [facility] ([facility]) [address] [place] [phone] Liss Griffiths MD [address] [place] [address] [place] [address] Social History Tobacco Use Types Packs/Day Years [...] ? ALIZE MANJARREZ ? Accession #: ? [id number] ? : ? 1960 (Age: 50) ??F [...] endocervical tissue. Comment: ? The prior biopsy ([id number]) was examined. ??(Susannah Hughes)/[facility] Document reviewed and electronically signed by: [...] submitted entirely as (A1) and (A2). (Chikis Fonseca)/[facility] End of Report [facility] 11/02/2011 11/02/2011 16: 24 EDT us Liss Griffiths MD PATHOLOGY ORDERABLES Final Resu lt [facility] [address] [place] [address] documented in this encounter Visit Diagnoses Not on filedocumented in this encounter Care Teams Bpm Architect Relationship Specialty Start Date End Date Brenda Renee MD [address] [place] [address] [place] [address] PCP - General 08/03/10 documented as of this encounter
--- OUTSIDE RECORDS SUMMARY | 2024-06-07 13:28 | XMS_ITS | Encounter Summary ---
Author Organization [facility] Address [address] [place] [address] Care Team Providers Care Environmental Research Scientist Name Role Phone Brenda Canchola MD Primary Care Provider [phone] Encounter Details Date Type Department Care Team (Late st Contact Info) Description 02/05/2023 Lab Requisition [facility] Pathology & Laboratory Medicine - [address] [phone] Outr Resulting Lab, Provider Social History Tobacco [...] Lyme Ab Negative Negative 02/06/2023 10:47 EDT [facility] Blood VENOUS BLOOD / Unknown 02/04/2023 21:15 EDT 02/05/2023 15:40 EDT us Provider Outr Resulting Lab IMMUNOLOGY AND SEROL OGY ORDERABLES Final Result [facility] [address] [place] [address] documented in this encounter Visit Diagnoses Not on filedocumented in this encounter Care Teams Environmental Research Scientist Relationship Specialty Start Date End Date Brenda Canchola MD [address] [place] [address] [place] [address] PCP - General 08/03/10 documented as of this encounter
--- OUTSIDE RECORDS SUMMARY | 2024-06-07 13:29 | XMS_ITS | Encounter Summary ---
Author Organization [facility] Address [facility] [place] [address] Care Team Providers Care Needle Loom Operator Helper Name Role Phone Daryn Garrett MD Primary Care Provider [phone] Encounter Details Date Type Department Care Team (Latest Contact Info) Description 05/30/2024 Travel Social History Tobacco Use Types Packs/Day [...] Care Team (Late st Contact Info) Description 06/28/2024 9:30 AM EST Office Visit Internal Medicine at [facility] [address] [place] [address] Daryn Garrett MD [facility] DR LILI [place] [address] 10/02/2024 1:00 PM EDT Office [place] [phone] Juanpablo Hernandez MD [facility] [place] [address] 01/30/2025 1:30 PM EDT Laboratory Appointment Lab at [facility] Hematology Oncology [address] [place] [phone] 01/30/2025 3:[address] [place] [place] [phone] Arturo Cordero MD [facility] H[place]AT[place] [address] 01/30/2025 4:15 PM EDT Office Visit [place]ology [place] [address] Arturo Cordero MD [facility] [place] [address] Scheduled Procedures Name Priority Associated Diagnoses Date/Ti me EGD, UPPER GI ENDOSCOPY (WRV U 2.09) Irritable bowel syndrome with constipation COLONOSCOPY, DIAGNOSTIC (WRV U 3.26) Irritable bowel syndrome with constipation documented as of this encounter Visit Diagnoses Not on filedocumented in this encounter Care Teams Needle Loom Operator Helper Relationship Specialty Start Date End Date Daryn Garrett MD [facility] DR LILI [place] [address] PCP - General 04/10/24 documented as of this encounter
--- OUTSIDE RECORDS SUMMARY | 2024-06-07 13:29 | XMS_ITS | Encounter Summary ---
Author Organization [facility] Address [facility] [place] [address] Care Team Providers Care Level Vial Setter Name Role Phone Daryn Garrett MD Primary Care Provider Encounter Details Date Type Department Care Team (Latest Contact Info) Description 05/26/2024 Travel Social History Tobacco Use Types Packs/Day [...] AM EST Office Visit Internal Medicine at [facility] [address] [place] [address] Daryn Garrett MD [facility] DR LILI WALKER - [place] [address] 10/02/2024 1:00 PM EDT Office [place] [phone] Juanpablo Hernandez MD [facility] [place] [address] 01/30/2025 1:30 PM EDT Laboratory Appointment Lab at [facility] Hematology Oncology [address] [place] [phone] 01/30/2025 3:[address] [place] [phone] Arturo Cordero MD [facility] HEMATOLOGY [place] [address] 01/30/2025 4:15 PM EDT Office Visit H[place]ology [place] [address] Arturo Cordero MD [facility] HEMATOLOGY [place] [address] Scheduled Procedures Name Priority Associated Diagnoses Date/Ti me EGD, UPPER GI ENDOSCOPY (WRV U 2.09) Irritable bowel syndrome with constipation COLONOSCOPY, DIAGNOSTIC (WRV U 3.26) Irritable bowel syndrome with constipation documented as of this encounter Visit Diagnoses Not on filedocumented in this encounter Care Teams Level Vial Setter Relationship Specialty Start Date End Date Daryn Garrett MD [facility] DR LILI WALKER - [place] [address] PCP - General 04/10/24 documented as of this encounter
--- OUTSIDE RECORDS SUMMARY | 2024-06-07 13:29 | XMS_ITS | Encounter Summary ---
Author Organization [facility] [place] [address] Care Team Providers Care Robotics Engineer Name Role Phone Rodney Padilla MD Primary Care Provider Encounter Details Date Type Department Care Team (Latest Contact Info) Description 03/20/2024 11:00 AM EDT Laboratory Appointment Lab at [facility] [address] [place] [address] Type 2 diabetes mellitus without [...] AM EST Office Visit Internal Medicine at [address] [phone] Daryn Garrett MD [facility] [address] LILI WALKER - [place] [address] 10/02/2024 1:00 PM EDT Office [place] [phone] Juanpablo Hernandez MD [facility] [place] [address] 01/30/2025 1:30 PM EDT Laboratory Appointment Lab at [facility] Hematology Oncology [address] [place] [phone] 01/30/2025 3:[address] [place] [phone] Arturo Cordero MD [facility] HEMATOLOGY [place] [address] 01/30/2025 4:15 PM EDT Office Visit Hematology and Oncology at [facility] [place] [address] Arturo Cordero MD [facility] DR HEMATOLOGY [place] [address] Scheduled Procedures Name Priority Associated Diagnoses Date/Ti me EGD, UPPER GI ENDOSCOPY (WRV U 2.09) Irritable bowel syndrome with constipation COLONOSCOPY, DIAGNOSTIC (WRV U 3.26) Irritable bowel syndrome with constipation documented as of this encounter Procedures Procedure Name Priority Date/Time Associated Diagnosis Comments HEMOGLOBIN A1C Routine 03/20/2024 11:05 AM EDT Type 2 diabetes mellitus without long-term current use of insulin documented in this encounter Results * (ABNORMAL) Hemoglobin A1c (03/20/2024 11:05 AM EDT) Hemoglobin A1c 7.7(H) 4.3 - 5.6 % 03/20/2024 2:06 PM EDT [facility] Comment: Per ADA guidelines, [...] red blood cell turnover may not be service liaison representative of glycemic control. Reference Interval: 4.3 - 5.6% 5.7 - 6.4%: Consistent with prediabetes >=6.5%: Consistent with diagnosis of diabetes mellitus Estimated Average Glucose 174 mg/dL 03/20/2024 2:06 PM EDT [facility] Blood VENOUS BLOOD SPECIMEN / Unknown Venipuncture / Unknown 03/20/2024 11:05 AM EDT 03/20/2024 11:05 AM EDT Rodney Padilla MD [place] [address] documented in this encounter Visit Diagnoses Diagnosis Type 2 diabetes mellitus without long-term current use of insulin documented in this encounter Care Teams Robotics Engineer Relationship Specialty Start Date End Date Rodney Padilla MD PCP - General 07/18/22 04/09/24 documented as of this encounter
--- OUTSIDE RECORDS SUMMARY | 2024-06-07 13:29 | XMS_ITS | Encounter Summary ---
[place] [address] Care Team Providers Care Bread Stacker Name Role Phone Daryn Garrett MD Primary Care Provider Encounter Details Date Type Department Care Team (Latest Contact Info) Description 06/04/2024 4:30 PM EST Laboratory Appointment Lab [address] [place] [phone] Irritable bowel syndrome with constipation Social History Tobacco Use Types Packs/Day Years [...] AM EST Office Visit Internal Medicine at [address] [phone] Daryn Garrett MD [facility] DR LILI WALKER [place] [address] 10/02/2024 1:00 PM EDT Office [place] [phone] Juanpablo Hernandez MD [facility] [place] [address] 01/30/2025 1:30 PM EDT Laboratory Appointment Lab at [facility] Hematology Oncology [address] [place] [phone] 01/30/2025 3:[address] [place] [phone] Arturo Cordero MD [facility] DR HEMATOLOGY AND ONCOLOGY [place], [place] [phone] 01/30/2025 4:15 PM EDT Office Visit Hematology and Oncology at [facility] [place] [address] Arturo Cordero MD [facility] DR HEMATOLOGY [place] [address] Scheduled Procedures Name Priority Associated Diagnoses Date/Ti me EGD, UPPER GI ENDOSCOPY (WRV U 2.09) Irritable bowel syndrome with constipation COLONOSCOPY, DIAGNOSTIC (WRV U 3.26) Irritable bowel syndrome with constipation documented as of this encounter Procedures Procedure Name Priority Date/Time Associated Diagnosis Comments TSH CASCADE Routine 06/04/2024 2:37 PM EST Irritable bowel syndrome with constipation TISSUE TRANSGLUTAMINASE, IGA Routine 06/04/2024 2:37 PM EST Irritable bowel syndrome with constipation IGA Routine 06/04/2024 2:37 PM EST Irritable bowel syndrome with constipation IGG Routine 06/04/2024 2:37 PM EST Irritable bowel syndrome with constipation COMPREHENSIVE METABOLIC PANEL Routine 06/04/2024 2:37 PM EST Irritable bowel syndrome with constipation documented in this encounter Results * TSH [place] (06/04/2024 2:37 PM EST) Thyroid Stimulating Hormone 2.50 0.27 - 4.20 mcIU/mL 06/04/2024 3:28 PM EST [facility] Comment: Reference Interval (mcIU/mL): ?? Females: ? First Trimester: 0.23-3.88 ? Second Trimester: 0.22-3.90 ? Third Trimester: 0.44-4.66 Blood VENOUS BLOOD SPECIMEN / Unknown Venipuncture / Unknown 06/04/2024 2:37 PM EST 06/04/2024 2:37 PM EST Juanpablo Tran MD CHEMISTRY ORDERABLES [facility] [place] [address] * IgA (06/04/2024 2:37 PM EST) Pathologist [facility] IgA 262 70 - 400 mg/dL 06/04/2024 3:19 PM EST [facility] Blood VENOUS BLOOD SPECIMEN / Unknown Venipuncture / Unknown 06/04/2024 2:37 PM EST 06/04/2024 2:37 PM EST Juanpablo Tran MD CHEMISTRY ORDERABLES Performing Organization Address City/[facility]/ZIP Co de Phone Number [facility] [place] [address] * IgG (06/04/2024 2:37 PM EST) Pathologist [facility] IgG 923 700 - 1,600 mg/dL 06/04/2024 3:19 PM EST [facility] Blood VENOUS BLOOD SPECIMEN / Unknown Venipuncture / Unknown 06/04/2024 2:37 PM EST 06/04/2024 2:37 PM EST Juanpablo Tran MD CHEMISTRY ORDERABLES Performing Organization Address City/[facility]/ZIP Co de Phone Number [facility] [place] [address] * Tissue Transglutaminase, IgA (06/04/2024 2:37 PM EST) Pathologist [facility] TTG IgA Ab 0.4 <=10.0 U/mL 06/05/2024 11:40 AM EST [facility] Blood VENOUS BLOOD SPECIMEN / Unknown Venipuncture / Unknown 06/04/2024 2:37 PM EST 06/04/2024 2:37 PM EST Narrative [facility] - 06/05/2024 11:40 AM EST <7 U/mL: Negative 7-10 U/mL: Indeterminate >10 U/mL: Positive Juanpablo Tran MD IMMUNOLOGY ORDERABLE S [facility] [place] [address] * Comprehensive metabolic panel Non-fasting (06/04/2024 2:37 PM EST) Glucose 167 65 - 199 mg/dL 06/04/2024 3:28 PM EST [facility] Comment:Glucose Concentratio n >=200 mg/dL plus symptoms is consistent with Diabetes Mellitus. Blood Urea Nitrogen 12 8 - 18 mg/dL 06/04/2024 3:28 PM [facility] Creatinine 0.86 0.70 - 1.20 mg/dL 06/04/2024 3:28 PM [facility] Sodium 142 135 - 145 mMol/L 06/04/2024 3:28 PM [facility] Potassium 4.1 3.5 - 5.0 mMol/L 06/04/2024 3:28 PM [facility] Chloride 105 98 - 107 mMol/L 06/04/2024 3:28 PM [facility] Carbon Dioxide 26 22 - 31 mMol/L 06/04/2024 3:28 PM [facility] Anion Gap 11 5 - 15 mMol/L 06/04/2024 3:28 PM [facility] Calcium 9.9 8.5 - 10.5 mg/dL 06/04/2024 3:28 PM [facility] Protein, Total 7.4 6.1 - 8.0 g/dL 06/04/2024 3:28 PM [facility] Albumin 4.4 3.2 - 5.2 g/dL 06/04/2024 3:28 PM [facility] Aspartate Aminotransferase 19 <=30 unit/L 06/04/2024 3:28 PM [facility] Alanine Aminotransferase 30 0 - 30 unit/L 06/04/2024 3:28 PM [facility] Alkaline Phosphatase 96 35 - 105 unit/L 06/04/2024 3:28 PM EST [facility] Bilirubin, Total 0.5 <=1.3 mg/dL 06/04/2024 3:28 PM EST [facility] Est Glomerular Filtration Rate - Female 76 mL/min/1. 73 m?? 06/04/2024 3:28 PM EST [facility] Comment: This patient's estimated [...] urine creatinine clearance. Assignment of CKD stage 1 - 5 for patients with an eGFR near the transition point between stages may be based on clinical assessment of muscle mass and symptoms in addition to eGFR. Link: eGFR Calculator [employer] Fasting Status No 06/04/2024 3:28 PM [facility] Blood VENOUS BLOOD SPECIMEN / Unknown Venipuncture / Unknown 06/04/2024 2:37 PM EST 06/04/2024 2:37 PM EST Juanpablo Tran MD CHEMISTRY ORDERABLES [facility] [place] [address] documented in this encounter Visit Diagnoses Diagnosis Irritable bowel syndrome with constipation Irritable bowel syndrome documented in this encounter Care Teams Bread Stacker Relationship Specialty Start Date End Date Daryn Garrett MD [facility] [address] [place] [address] PCP - General 04/10/24 documented as of this encounter
--- OUTSIDE RECORDS SUMMARY | 2024-06-07 13:29 | XMS_ITS | Encounter Summary ---
Author Organization [facility] [place] [address] Care Team Providers Care Cigar Packer And Grader Name Role Phone Rodney Padilla MD Primary Care Provider Reason for Visit * Reason Comments Medication Refill Encounter Details Date Type Department Care Team (Late st Contact Info) Description 04/08/2024 Refill Family Medicine at [facility] [address] [place] [address] Rodney Padilla MD [address] [place] [address] [place] [id number] Social History Tobacco Use Types Packs/Day Years [...] 12:52 PM EDT Spoke to Yashira at [facility] who states that the patient does have refills for the Plavix documented in this encounter Plan of Treatment Upcoming Encounters Date Type Department Care Team (Late st Contact Info) Description 06/28/2024 9:30 AM EST Office Visit Internal Medicine at [facility] [address] [place] [address] Daryn Garrett MD [facility] DR LILI [place] [address] 10/02/2024 1:00 PM EDT Office [place] [phone] Juanpablo Hernandez MD [facility] [place] [address] 01/30/2025 1:30 PM EDT Laboratory Appointment Lab at [facility] [place] On[place] [address] [place] [phone] 01/30/2025 3:[address] [place] [phone] Arturo Cordero MD [facility] DR [place] [address] 01/30/2025 4:15 PM EDT Office Visit Hematology [place] [phone] Arturo Cordero MD [facility] DR [place] [address] Scheduled Procedures Name Priority Associated Diagnoses Date/Ti me EGD, UPPER GI ENDOSCOPY (WRV U 2.09) Irritable bowel syndrome with constipation COLONOSCOPY, DIAGNOSTIC (WRV U 3.26) Irritable bowel syndrome with constipation documented as of this encounter Visit Diagnoses Not on filedocumented in this encounter Care Teams Cigar Packer And Grader Relationship Specialty Start Date End Date Rodney Padilla MD PCP - General 07/18/22 04/09/24 documented as of this encounter
--- OUTSIDE RECORDS SUMMARY | 2024-06-07 13:29 | XMS_ITS | Encounter Summary ---
Author Organization [facility] [place] [address] Care Team Providers Care Pad Tufter Name Role Phone Daryn Garrett MD Primary Care Provider Reason for Visit * Reason Onset Date Comments Prior Authorization 04/18/2024 tretinoin (R ETIN-A) 0.025 % Cream Encounter Details Date Type Department Care Team (Late st Contact Info) Description 04/18/2024 [place] [phone] Brittanie Merritt MA Prior Authorization (tretinoin (RETIN-A) 0.025 % Cream) Social History Tobacco Use Types Packs/Day Years [...] encounter Miscellaneous Notes * Telephone Encounter - Brittanie Merritt MA - 04/18/2024 9:58 AM EDT Images from the original note were not included. PA due to the requested drug being cosmetic use documented in this encounter Plan of Treatment Upcoming Encounters Date Type Department Care Team (Late st Contact Info) Description 06/28/2024 9:30 AM EST Office Visit Internal Medicine at [facility] [address] [place] [address] Daryn Garrett MD [facility] DR LILI [place]ER [place] [address] 10/02/2024 1:00 PM EDT Office [place] [address] Juanpablo Hernandez MD [facility] [place] [address] 01/30/2025 1:30 PM EDT Laboratory Appointment Lab at [facility] [place] Hematology Oncology [address] [place] [phone] 01/30/2025 3:[address] [place] [phone] Arturo Cordero MD [facility] DR HEMATOLOGY [place] [address] 01/30/2025 4:15 PM EDT Office Visit Hematology [place] [phone] Arturo Cordero MD [facility] DR HEMATOLOGY [place] [address] Scheduled Procedures Name Priority Associated Diagnoses Date/Ti me EGD, UPPER GI ENDOSCOPY (WRV U 2.09) Irritable bowel syndrome with constipation COLONOSCOPY, DIAGNOSTIC (WRV U 3.26) Irritable bowel syndrome with constipation documented as of this encounter Visit Diagnoses Not on filedocumented in this encounter Care Teams Pad Tufter Relationship Specialty Start Date End Date Daryn Garrett MD [facility] DR LILI [place] [address] PCP - General 04/10/24 documented as of this encounter
--- OUTSIDE RECORDS SUMMARY | 2024-06-07 13:29 | XMS_ITS | Encounter Summary ---
Author Organization [facility] Address [facility] [place] [address] Care Team Providers Care Security Door Installer Name Role Phone Daryn Garrett MD Primary Care Provider Reason for Visit * Reason Onset Date Comments Medication Refill 04/17/2024 Encounter Details Date Type Department Care Team (Late st Contact Info) Description 04/17/2024 Refill Internal Medicine at [facility] [address] [place] [phone] Daryn Garrett MD [facility] DR LILI WALKER [place] [address] Social History Tobacco Use Types Packs/Day Years [...] Telephone Encounter - Bella Hargrove CMA - 04/17/2024 9:13 AM EDT Prescription Renewal Request Name: Alize Gramajo : 1960 Prescription(s) Requested: Requested Prescriptions Pending Prescriptions Disp Refills nitroGLYcerin (Nitrostat) 0.4 mg sublingual tablet 30 tablet 5 Sig: Place 1 tablet under the tongue See Admin Instructions. Date of Encounter last in This Dept (If need an appointment send to secretaries to schedule): 12/20/23 Next Encounter in This Dept: Visit date not found Date of Last Refill (for each medication): 09/26/22 Medication category requirements (labs etc): Status of request: Pended Allergies Allergen Reactions Codeine Phosphate Nausea And Vomiting Erythromycin Base Nausea Only Azithromycin Ibuprofen Stomach upset Lisinopril cough Nsaids (Non-Steroidal Anti-Inflammatory Drug) Nausea And Vomiting Bella Hargrove CMA 04/17/24 9:13 AM documented in this encounter Plan of Treatment Upcoming Encounters Date Type Department Care Team (Late st Contact Info) Description 06/28/2024 9:30 AM EST Office Visit Internal Medicine at [facility] [address] [place] [address] Daryn Garrett MD [facility] DR LILI WALKER [place] [address] 10/02/2024 1:00 PM EDT Office [place] [phone] Juanpablo Hernandez MD [facility] [address] 01/30/2025 1:30 PM EDT Laboratory Appointment Lab at [facility] [place] Hematology Oncology [address] [place] [phone] 01/30/2025 3:[address] [place] [phone] Arturo Cordero MD [facility] HEMATOLOGY [place] [address] 01/30/2025 4:15 PM EDT Office Visit Hematology [place] [phone] Arturo Cordero MD [facility] HEMATOLOGY [place] [address] Scheduled Procedures Name Priority Associated Diagnoses Date/Ti me EGD, UPPER GI ENDOSCOPY (WRV U 2.09) Irritable bowel syndrome with constipation COLONOSCOPY, DIAGNOSTIC (WRV U 3.26) Irritable bowel syndrome with constipation documented as of this encounter Visit Diagnoses Not on filedocumented in this encounter Care Teams Security Door Installer Relationship Specialty Start Date End Date Daryn Garrett MD [facility] DR LILI WALKER [place] [address] PCP - General 04/10/24 documented as of this encounter
--- OUTSIDE RECORDS SUMMARY | 2024-06-07 13:29 | XMS_ITS | Clinical Summary ---
Author Organization [facility] [place] [address] Care Team Providers Care Regional Wildlife Agent Name Role Phone Daryn Garrett MD Primary [...] 1 capsule by mouth nightly. 04/06/2022 Active busPIRone (Buspar) 30 mg Tablet Take 30 mg by mouth 2 times daily. 04/06/2022 Active FreeStyle Lite Meter Kit 04/20/2022 Active FreeStyle Lancets 28 gauge MiscIndications:true betes mellitus 1 each by Other route 3 times daily. Indications: diabetes 100 each 11 06/16/2022 Active freestyle lite stripsIndications:T ype 2 diabetes mellitus with hyperglycemia, without long-term current use of insulin USE TO TEST THREE TIMES A DAY 300 strip 3 02/27/2023 Active loratadine (Claritin) 10 mg Tablet Take 1 tablet by mouth daily. 90 tablet 3 03/22/2023 Active inhalational spacing device (Hesham Aerosol [place] Enhancer) SpacerIndications:C hronic obstructive pulmonary disease, unspecified COPD type 1 each by [facility].(Non-Drug; Combo Route) route as needed. 1 each 2 06/20/2023 Active lamoTRIgine (LaMICtal) 25 mg tabletIndications:b ipolar disorder in remission Take 50 mg by mouth nightly. Indications: bipolar disorder in remission Active Blood-Glucose Meter,Continuous (Dexcom G7 Youth Teacher) MiscIndications:Typ e 2 diabetes mellitus with hyperglycemia, without long-term current use of insulin 1 Device by [facility].(Non-Drug; Combo Route) route continuous. 08/18/2023 Active Blood-Glucose Sensor (Dexcom G7 Sensor) DeviceIndications:T ype 2 diabetes mellitus with hyperglycemia, without long-term current use of insulin 1 Device by [facility].(Non-Drug; Combo Route) route every 10 days. 3 each 11 08/18/2023 Active lamoTRIgine (LaMICtal) 150 mg tablet Take 150 mg by mouth Daily at Noon. 08/17/2023 Active fluticasone propionate (Flonase) 50 mcg/actuation [place], Suspension SPRAY 1 SPRAY IN EACH NOSTRIL TWO TIMES A DAY 48 mL 3 09/28/2023 Active nicotine (Nicoderm CQ) 21 mg/24 hr Patch 24 hrIndications:Nicot ine dependence, cigarettes, uncomplicated Change 1 patch on the skin daily. See package instructions 28 patch 1 10/24/2023 Active Additional Information Patient not taking.Reported on 06/04/2024 nicotine polacrilex (Nicorette) 4 mg gumIndications:Federico yuly dependence, cigarettes, uncomplicated Take 1 each by mouth every 2 hours as needed for Smoking cessation. Nothing but water 15 min before or during use. 100 each 3 10/24/2023 Active Additional Information Patient not taking.Reported on 06/04/2024 fluticasone furoate-umeclidiniu m-vilanterol (Trelegy Ellipta) 200-62.5-25 mcgIndications:Research Assistant Professor lorena obstructive pulmonary disease, unspecified COPD type Inhale 1 puff into the lungs daily. Rinse mouth after use 1 each 11 10/24/2023 Active BD Alcohol Swabs Pads, MedicatedIndication s:Type 2 diabetes mellitus with hyperglycemia, without long-term current use of insulin USE TOPICALLY ONCE DAILY 100 each 3 11/02/2023 Active insulin needles, disposable, 32 gauge x 5/32 NeedleIndications:d iabetes mellitus Inject 1 each subcutaneously daily. Indications: diabetes 100 each 11 11/02/2023 Active tretinoin (RETIN-A) 0.025 % CreamIndications:Ph otoaging of skin Apply a pea size amount to the face nightly. As it can be irritating, start 2-3 times per week and slowly increase to nightly use. Can also mix with a bland moisturizer to help with irritation. 45 g 11/29/2023 Active metFORMIN XR (Glucophage XR) 500 mg [...] mouth daily. 90 tablet 3 02/20/2024 Active losartan (Cozaar) 100 mg tablet Take 1 tablet by mouth daily. 90 tablet 3 02/20/2024 Active albuteroL 90 mcg/actuation inhaler (HFA) Inhale 2 puffs into the lungs every 4 hours as needed for Wheezing. USE WITH SPACER 11/24/2023 Active Miscellaneous Medical Supply Misc by [facility].(Non-Drug; Combo Route) route. Active docusate sodium (Colace) [...] times daily. 3726 mL 3 04/09/2024 Active nitroGLYcerin (Nitrostat) 0.[address] 1 tablet under the tongue See Admin Instructions. 30 tablet 5 04/17/2024 Active amoxicillin-clavula eduardo (Augmentin) 875-125 mg tablet Take 1 tablet by mouth 2 times daily. 20 tablet 05/27/2024 Active LORazepam (Ativan) 0.5 mg tabletIndications:a nxiety Take 1 tablet by mouth every 8 hours. Indications: anxious 90 tablet 3 05/27/2024 Active tirzepatide (Mounjaro) 7.5 mg/0.5 mL Pen Injector Inject 7.5 mg subcutaneously once a week. 3 mL 05/28/2024 Active Active Problems Problem Noted Date Diagnosed Date Severe obesity 09/19/2023 Edema of lower extremity 08/23/2021 Primary osteoarthritis of both knees 08/23/2021 Degenerative disc disease, lumbar 10/21/2020 BPPV (benign paroxysmal positional vertigo), rig ht 10/21/2020 Malignant melanoma of conjunctiva, left 05/19/20 20 OAB (overactive bladder) 01/13/2020 Malignant neoplasm of kidney 01/13/2020 Renal mass, left 06/28/2019 Left atrial dilatation - severe 06/27/2019 Left renal mass 05/29/2019 Overview (05/29/2019): Also has +FHx renal cancer. 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 COPD 05/10/2019 12/20/2023 Altered mental status 10/08/20082023 Overview (10/14/2010): Initial evaluation by Dr. Bert [...] a steady improvement ever since that hospitalization.. Encounters Date Type Department Care Team Description 06/04/2024 4:30 PM EST Laboratory Appointment Lab [address] [place] [phone] Irritable bowel syndrome with constipation 06/04/2024 1:00 PM EST Office [place] [phone] Juanpablo Tran MD Irritable bowel syndrome with constipation 06/04/2024 Travel 05/30/2024 Travel 05/27/2024 9:00 AM EST Office Visit Internal Medicine at [address] [phone] Daryn Garrett MD Essential hypertension; Bipolar affective disorder in remission; Type 2 diabetes mellitus with diabetic polyneuropathy, with long-term current use of insulin; 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; Diverticulitis of large intestine without perforation or abscess with bleeding; Type 2 diabetes mellitus without long-term current use of insulin 05/26/2024 Travel 05/10/2024 Transcribe Orders eDH Incoming Referrals [phone] Tonia Mcrae, FOREIGN BANKNOTE TELLER TRADER Bradycardia 05/01/2024 1:45 PM EDT Office [place] [phone] Juanpablo Hernandez MD Conjunctival tumor; Malignant melanoma of conjunctiva, left; Type 2 diabetes mellitus without long-term current use of insulin 05/01/2024 11:03 AM EDT - 05/01/2024 11:59 PM EDT Hospital Encounter Mammography/[place] [phone] Rodney Padilla MD Encounter for screening mammogram for breast cancer Discharge Disposition: Home 05/01/2024 Travel 04/28/2024 Travel 04/18/2024 [place] [phone] Brittanie Merritt MA Prior Authorization (tretinoin (RETIN-A) 0.025 % Cream) 04/17/2024 [address] Medicine at [facility] [address] [place] [phone] Daryn Garrett MD 04/16/2024 Transcribe Orders eDH Incoming Referrals [phone] Tonia Mcrae, FOREIGN BANKNOTE TELLER TRADER Chronic LLQ pain 04/15/2024 [place] [phone] Tita Lee MD 04/15/2024 External [place] [phone] 04/08/2024 Refill Family Medicine at [facility] [address] [place] [address] Rodney Padilla MD Essential hypertension 04/08/2024 Refill Family Medicine at [facility] [address] [place] [phone] Rodney Padilla MD 03/28/2024 [facility] [address] [place] [address] Rodney Padilla MD 03/22/2024 Refill Family Medicine at [facility] [address] [place] [address] Rodney Padilla MD 03/21/2024 Telephone Family Medicine at [facility] [address] [place] [address] Monique Cheung 03/20/2024 3:30 PM EDT Office Visit Family Medicine at [facility] [address] [place] [phone] Rodney Padilla MD Irritable bowel syndrome, unspecified type (Primary Dx); Type 2 diabetes mellitus without long-term current use of insulin 03/20/2024 2:00 PM EDT TH Visit (TeleHealth) Family Medicine at [facility] [address] [place] [address] Julia Low, [facility] Type 2 diabetes mellitus without long-term current use of insulin (Primary Dx) 03/20/2024 11:00 AM EDT Laboratory Appointment Lab at [facility] [address] [place] [address] Type 2 diabetes mellitus without long-term current use of insulin 03/19/2024 Travel 03/14/2024 Travel 03/13/2024 Travel from Last 3 Months Immunizations Name Administration Dates Next Due Covid-19 Bivalent (Pfizer Co mirnaty) 12yrs+ ([id number]) 06/07/2022 Influenza Quadrivalent with Preservative 05/06/2020 Influenza Quadrivalent, Pres ervative Free 06/20/2023,06/07/2022,05/31/2021,04/09,05/08/2015 Influenza Vaccine, Whole 05/10/2007 Pneumococcal 13-Valent Conju gate (Prevnar 13) 04/09/2019 Pneumococcal 23-Valent Polys accharide (Pneumovax 23) 05/10/2007 Td Adult (Decavac, Tenivac) 06/24/2011, 6 Td Adult (not absorbed) 10/07/2005 Tdap (Adacel, Boostrix) 04/09/2019,06/24/2011 Family History Medical History Relation Comments [...] Sign Reading Time Taken Comments Blood Pressure 136/87 06/04/2024 12:53 PM EST Pulse 72 06/04/2024 12:53 PM EST Temperature 36.3 ??C (97.4 ??F) 05/27/2024 8:59 AM ES T Respiratory Rate 16 02/01/2024 11:1 9 AM EDT Oxygen Saturation 99% 05/27/2024 8:59 AM EST Inhaled Oxygen Concentration - - Weight 104.6 kg (230 lb 11.2 oz) 2023 12:53 PM EST Height 161.3 cm (5' 3.5) 06/04/2024 12 :53 PM EST Body Mass Index 40.23 06/04/2024 12:53 PM EST Plan of Treatment Upcoming Encounters Date Type Department Care Team (Late st Contact Info) Description 06/28/2024 9:30 AM EST Office Visit Internal Medicine at [address] [place] [phone] Daryn Garrett MD [facility] [place] [address] 10/02/2024 1:00 PM EDT Office [place] [phone] Juanpablo Hernandez MD [facility] [place] [address] 01/30/2025 1:30 PM EDT Laboratory Appointment Lab [place] [facility] [place] [address] [place] [phone] 01/30/2025 3:[address] [place] [phone] Arturo Cordero MD [facility] [place] [address] 01/30/2025 4:15 PM EDT Office Visit Hematology [place] [phone] Arturo Cordero MD [facility] [place] [address] Scheduled Procedures Name Priority Associated Diagnoses Date/Ti me EGD, UPPER GI ENDOSCOPY (WRV U 2.09) Irritable bowel syndrome with constipation COLONOSCOPY, DIAGNOSTIC (WRV U 3.26) Irritable bowel syndrome with constipation Health Maintenance Due Date Last Done Comments CT Colonography 1959 FIT DNA 1959 FIT 1959 Sigmoidoscopy (10 year) with FIT yearly 1959 Sigmoidoscopy 1959 Zoster vaccine (1 of 2) 11/11/2009 Advance Directive 11/11/2014 RSV Vaccine (1 - Risk 60-74 years 1-dose series) 2019 HPV test 01/07/2023 01/07/2018 (See prior EHR) PAP Smear 01/07/2023 01/07/2018 (See prior EHR) Covid-19 Vaccine (2 - season) 2024 06/07/2022 Influenza (Flu) vaccine (1 of 1 - Influenza standard series) 03/10/2024 06/20/2023, 06/07/2022, 05/31/2021, Additional history exists DM Hemoglobin A1c 6 month 09/17/20242023, 12/20/2023, 09/19/2023, Additional history exists Pneumococcal Vaccine: At-Risk 5-64yrs (3 of 3 - PPSV23 or PCV20) 11/11/2024 04/09/2019, 05/10/2007 DM Urine Microalbumin yearly 12/19/2024 12/20/2023, 06/20/2023, 06/21/2019 DM Opthalmology Exam 05/01/2025 05/01/2024, 07/26/2023, 10/05/2022, Additional history exists DM Creatinine yearly 06/04/2025 06/04/2024, 02/01/2024, 08/03/2023, Additional history exists Breast Cancer screening 05/01/2026 05/01/20 24, 11/30/2022, 07/27/2021, Additional history exists Tetanus/Diphtheria/Pertussi s Vaccines (4 [...] Completed 06/21/2019 Medical Devices Implanted Type Area Railway Traction Line Worker Device Identifier Shelf Expiration Date Model / Serial / Lot Cryopreserved Human Amniotic Membrane Implanted:Qty: 1 on 05/14/2020 by Juanpablo Hernandez MD at [facility] Left: Eye 03/27/2022 - / [id number] / Procedures Procedure Name Priority Date/Time Associated [...] PM EST Irritable bowel syndrome with constipation MAMMO SCREENING CAD AND JOSE GUADALUPE BILATERAL Routine 05/01/2024 11:49 AM EDT Encounter for screening mammogram for breast cancer [facility] EXTERNAL CARDIOLOGY RESULT Routine 04/15/2024 8:28 PM EDT ECG SCAN 04/15/2024 12:00 AM EDT ECG SCAN 04/15/2024 12:00 AM EDT ECG SCAN 04/13/2024 12:00 AM EDT HEMOGLOBIN A1C Routine 03/20/2024 11:05 AM EDT Type 2 diabetes mellitus without long-term current use of insulin U ALBUMIN/CRE RATIO Routine 12/20/2023 2 :28 PM EDT Type 2 diabetes mellitus without long-term current use of insulin HC HIV SCREEN, 4TH GENERATION Routine 06/21/2019 2:09 PM EST Healthcare maintenance HC HEPATITIS C ANTIBODY Routine 06/21/2019 2:09 PM EST Healthcare maintenance from Last 3 Months or Most Recently Relevant to Health Maintenance Results * TSH [place] (06/04/2024 2:37 PM EST) Thyroid Stimulating Hormone 2.50 0.27 - 4.20 mcIU/mL 06/04/2024 3:28 PM EST [facility] Comment: Reference Interval (mcIU/mL): ?? Females: ? First Trimester: 0.23-3.88 ? Second Trimester: 0.22-3.90 ? Third Trimester: 0.44-4.66 Blood VENOUS BLOOD SPECIMEN / Unknown Venipuncture / Unknown 06/04/2024 2:37 PM EST 06/04/2024 2:37 PM EST Juanpablo Tran MD CHEMISTRY ORDERABLES Performing Organization Address City/State/[facility] Co de Phone Number [facility] [place] [address] * Tissue Transglutaminase, IgA (06/04/2024 2:37 PM EST) TTG IgA Ab 0.4 <=10.0 U/mL 06/05/2024 11:40 AM EST [facility] Blood VENOUS BLOOD SPECIMEN / Unknown Venipuncture / Unknown 06/04/2024 2:37 PM EST 06/04/2024 2:37 PM EST Narrative [facility] - 06/05/2024 11:40 AM EST <7 U/mL: Negative 7-10 U/mL: Indeterminate >10 U/mL: Positive Juanpablo Tran MD IMMUNOLOGY ORDERABLE S Performing Organization Address City/[facility] [address]/ZIP Co de Phone Number [facility] [place] [address] * IgA (06/04/2024 2:37 PM EST) IgA 262 70 - 400 mg/dL 06/04/2024 3:19 PM EST [facility] Blood VENOUS BLOOD SPECIMEN / Unknown Venipuncture / Unknown 06/04/2024 2:37 PM EST 06/04/2024 2:37 PM EST Juanpablo Tran MD CHEMISTRY ORDERABLES Performing Organization Address [facility] [address]/[facility] Co de Phone Number [facility] [place] [address] * IgG (06/04/2024 2:37 PM EST) IgG 923 700 - 1,600 mg/dL 06/04/2024 3:19 PM EST [facility] Blood VENOUS BLOOD SPECIMEN / Unknown Venipuncture / Unknown 06/04/2024 2:37 PM EST 06/04/2024 2:37 PM EST Juanpablo Tran MD CHEMISTRY ORDERABLES Performing Organization Address City/[facility] [address]/ZIP Co de Phone Number [facility] [place] [address] * Comprehensive metabolic panel Non-fasting (06/04/2024 2:37 PM EST) Glucose 167 65 - 199 mg/dL 06/04/2024 3:28 PM EST [facility] Comment:Glucose Concentratio n >=200 mg/dL plus symptoms is consistent with Diabetes Mellitus. Blood Urea Nitrogen 12 8 - 18 mg/dL 06/04/2024 3:28 PM EST [facility] Creatinine 0.86 0.70 - 1.20 mg/dL 06/04/2024 3:28 PM [facility] Sodium 142 135 - 145 mMol/L 06/04/2024 3:28 PM [facility] Potassium 4.1 3.5 - 5.0 mMol/L 06/04/2024 3:28 PM [facility] Chloride 105 98 - 107 mMol/L 06/04/2024 3:28 PM [facility] Carbon Dioxide 26 22 - 31 mMol/L 06/04/2024 3:28 PM [facility] Anion Gap 11 5 - 15 mMol/L 06/04/2024 3:28 PM [facility] Calcium 9.9 8.5 - 10.5 mg/dL 06/04/2024 3:28 PM [facility] Protein, Total 7.4 6.1 - 8.0 g/dL 06/04/2024 3:28 PM [facility] Albumin 4.4 3.2 - 5.2 g/dL 06/04/2024 3:28 PM [facility] Aspartate Aminotransferase 19 <=30 unit/L 06/04/2024 3:28 PM [facility] Alanine Aminotransferase 30 0 - 30 unit/L 06/04/2024 3:28 PM [facility] Alkaline Phosphatase 96 35 - 105 unit/L 06/04/2024 3:28 PM [facility] Bilirubin, Total 0.5 <=1.3 mg/dL 06/04/2024 3:28 PM [facility] Est Glomerular Filtration Rate - Female 76 mL/min/1. 73 m?? 06/04/2024 3:28 PM [facility] Comment: This patient's estimated [...] Foundation Fasting Status No 06/04/2024 3:28 PM EST [facility] Blood VENOUS BLOOD SPECIMEN / Unknown Venipuncture / Unknown 06/04/2024 2:37 PM EST 06/04/2024 2:37 PM EST Juanpablo Tran MD CHEMISTRY ORDERABLES [facility] [place] [place] [address] * Mammo Screening Cad and Jose Guadalupe Bilateral (05/01/2024 11:49 AM EDT) Anatomical Region Laterality Modality Breast Bilateral Mammography Impressions 05/02/2024 7:41 AM EDT : No mammographic evidence of malignancy. RECOMMENDATION: Regular screening mammograms starting at age 40 reduce the risk of from breast cancer. Individuals should discuss the risks and benefits with their provider to determine their preferred breast cancer screening schedule, and at what age screening should stop. Individuals should report any breast changes to a health care provider right away. Some individuals, because of their family history, a genetic tendency, or other factors, should consider being screened with annual breast MRI as well as with mammograms. Screening mammography may not detect 10-15% of breast cancers. A result letter has been sent to this patient by the [facility]. BIRADS CATEGORY 1: NEGATIVE [[id number]] Electronically signed by: ZEENAT FLORES MD [facility] at [address] [phone] Your breast imaging exam done on: ??05/01/24 Narrative 05/02/2024 7:41 AM EDT BILATERAL MAMMOGRAPHY REASON FOR EXAM: Screening TECHNIQUE: CC and MLO views were obtained of each breast using standard 2-D mammography as well as 3-D tomosynthesis. Computer aided detection was used. This is compared with prior images. FINDINGS: ??The breasts are almost entirely fatty. There are no suspicious microcalcifications, masses, or areas of distortion. The pattern is stable. Rodney Padilla MD IMG MAMMO ORDERABLE S * External Cardiology Result (04/15/2024 8:28 PM EDT) Anatomical Region Laterality Modality Other Historical Provider EXTERNAL CARDIOLO GY RESULT * Scan Doc: ECG (04/15/2024 12:00 AM EDT) Only the most recent of3 resultswithin the time period is included. Narrative 04/15/2024 12:00 AM EDT Ordered by an unspecified provider. Scanning Provider MEDIA MGR SCAN EXT O RDR/RSLT * (ABNORMAL) Hemoglobin A1c (03/20/2024 11:05 AM EDT) Hemoglobin A1c 7.7(H) 4.3 - 5.6 % 03/20/2024 2:06 PM EDT [facility] Comment: Per ADA guidelines, [...] red blood cell turnover may not be metals sales representative of glycemic control. Reference Interval: 4.3 - 5.6% 5.7 - 6.4%: Consistent with prediabetes >=6.5%: Consistent with diagnosis of diabetes mellitus Estimated Average Glucose 174 mg/dL 03/20/2024 2:06 PM EDT [facility] Blood VENOUS BLOOD SPECIMEN / Unknown Venipuncture / Unknown 03/20/2024 11:05 AM EDT 03/20/2024 11:05 AM EDT Rodney Padilla MD CHEMISTRY ORDERABLE S [facility] [place] [address] * U Albumin/Cre Ratio (12/20/2023 2:28 PM EDT) Pathologist [facility] Albumin / Creatinin Ratio, Urine Not Calculated 0 - 29 mcg/mg Cr [facility] Comment: Reference Ranges: <30 [...] 2, 357? 362 Albumin, Urine <3.0 mg/L [facility] Creatinine, Urine 75 mg/dL [facility] Urine 12/20/2023 2:28 PM EDT 12/20/2023 4:11 PM EDT Narrative Resulting Agency Comment Spec In Lab Rodney Padilla MD URINE ORDERABLES [facility] [place] [address] * Hepatitis C Antibody (06/21/2019 2:09 PM EST) Pathologist [facility] Hepatitis C Antibody Negative Negative [facility] Blood specimen (specimen) 06/21/2019 2:09 PM EST 06/21/2019 6:01 PM EST Narrative Resulting Agency Comment Spec In Lab Luis E Narayan MD CHEMISTRY ORDERABLE S Performing Organization Address City/[facility] [address]/ZIP Co de Phone Number [facility] [place] [address] * HIV Screen, 4th Generation ([facility]P/APD) (06/21/2019 2:09 PM EST) HIV Ab/Ag Screen Negative Negative [facility] Comment: This 4th Generation [...] Luis E Narayan MD CHEMISTRY ORDERABLE S [facility] [place] [address] from Last 3 Months or Most Recently [...] capacity to make decision: Yes Care Teams Regional Wildlife Agent Relationship Specialty Start Date End Date Daryn Garrett MD [facility] [place] [address] PCP - General 04/10/24
--- OUTSIDE RECORDS SUMMARY | 2024-06-07 13:29 | XMS_ITS | Encounter Summary ---
Author Organization [facility] [place] [address] Care Team Providers Care Radio Tester Name Role Phone Daryn Garrett MD Primary Care Provider Encounter Details Date Type Department Care Team (Late st Contact Info) Description 04/15/2024 [place] [address] Social History Tobacco Use Types Packs/Day Years [...] AM EST Office Visit Internal Medicine at [address] [phone] Daryn Garrett MD [facility] DR LILI WALKER - PRIMARY CARE [place], [place] [phone] 10/02/2024 1:00 PM EDT Office [place] [phone] Juanpablo Hernandez MD [facility] [place] [address] 01/30/2025 1:30 PM EDT Laboratory Appointment Lab at [facility] Hematology Oncology [address] [place] [phone] 01/30/2025 3:[address] [place] [phone] Arturo Cordero MD [facility] [place] [address] 01/30/2025 4:15 PM EDT Office Visit Hematology [place] [address] Arturo Cordero MD [facility] [place] [address] Scheduled Procedures Name Priority Associated Diagnoses Date/Ti me EGD, UPPER GI ENDOSCOPY (WRV U 2.09) Irritable bowel syndrome with constipation COLONOSCOPY, DIAGNOSTIC (WRV U 3.26) Irritable bowel syndrome with constipation documented as of this encounter Procedures Procedure Name Priority Date/Time Associated Diagnosis Comments MISC EXTERNAL CARDIOLOGY RESULT Routine 04/15/2024 8:28 PM EDT documented in this encounter Results * External Cardiology Result (04/15/2024 8:28 PM EDT) Anatomical Region Laterality Modality Other Historical Provider EXTERNAL CARDIOLO GY RESULT documented in this encounter Visit Diagnoses Not on filedocumented in this encounter Care Teams Radio Tester Relationship Specialty Start Date End Date Daryn Garrett MD [facility] [address] [place] [address] PCP - General 04/10/24 documented as of this encounter
--- OUTSIDE RECORDS SUMMARY | 2024-06-07 13:29 | XMS_ITS | Encounter Summary ---
Author Organization [facility] Address [facility] [place] [address] Care Team Providers Care Coding Coordinator Name Role Phone Rodney Padilla MD [...] AM EST Office Visit Internal Medicine at [facility] [address] [place] [address] Daryn Garrett MD [facility] [address] LILI [place] [address] 10/02/2024 1:00 PM EDT Office [place] [phone] Juanpablo Hernandez MD [facility] [place] [address] 01/30/2025 1:30 PM EDT Laboratory Appointment Lab at [facility] [place] On[place] [address] [place] [phone] 01/30/2025 3:[address] [place] [phone] Arturo Cordero MD [facility] [place] [address] 01/30/2025 4:15 PM EDT Office Visit Hematology [place] [address] Arturo Cordero MD [facility] [place] [address] Scheduled Procedures Name Priority Associated Diagnoses Date/Ti me EGD, UPPER GI ENDOSCOPY (WRV U 2.09) Irritable bowel syndrome with constipation COLONOSCOPY, DIAGNOSTIC (WRV U 3.26) Irritable bowel syndrome with constipation documented as of this encounter Visit Diagnoses Not on filedocumented in this encounter Care Teams Coding Coordinator Relationship Specialty Start Date End Date Rodney Padilla MD PCP - General 07/18/22 04/09/24 documented as of this encounter
--- OUTSIDE RECORDS SUMMARY | 2024-06-07 13:29 | XMS_ITS ---
Author Organization [facility] Address [facility] [place] [address] Care Team Providers Care Rotary Driller Name Role Phone Daryn Garrett MD Primary Care Provider Active Problems Problem Noted Date Diagnosed Date Severe obesity 09/19/2023 Edema of lower extremity 08/23/2021 Primary osteoarthritis of both knees 08/23/2021 Degenerative disc disease, lumbar 10/21/2020 BPPV (benign paroxysmal positional vertigo), rig ht 10/21/2020 Malignant melanoma of conjunctiva, left 05/19/20 OAB (overactive bladder) 01/13/2020 Malignant neoplasm of kidney 01/13/2020 Renal mass, left 06/28/2019 Left atrial dilatation - severe 06/27/2019 Left renal mass 05/29/2019 Overview (05/29/2019): Also has +FHx renal cancer. 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
--- OUTSIDE RECORDS SUMMARY | 2024-06-07 13:29 | XMS_ITS | Encounter Summary ---
Author Organization [facility] Address [facility] [place] [address] Care Team Providers Care Housing Liaison Name Role Phone Daryn Garrett MD Primary Care Provider [phone] Reason for Visit * Reason Comments Medication Check Encounter Details Date Type Department Care Team (Late st Contact Info) Description 05/27/2024 9:00 AM EST Office Visit Internal Medicine at [facility] [address] [place] [address] Daryn Garrett MD [facility] DR LILI AZEVEDO [place] [address] Essential hypertension; Bipolar affective disorder in remission; Type 2 diabetes mellitus with diabetic polyneuropathy, with long-term current use of insulin; Coronary artery disease involving k[place] coronary artery of [place] heart with angina pectoris; Diverticulitis of large [...] Sign Reading Time Taken Comments Blood Pressure 134/78 05/27/2024 8:59 AM EST Pulse 42 05/27/2024 8:59 AM EST Temperature 36.3 ??C (97.4 ??F) 05/27/2024 8:59 AM ES T Respiratory Rate - - Oxygen Saturation 99% 05/27/2024 8:59 AM EST Inhaled Oxygen Concentration - - Weight 104.8 kg (231 lb) 05/27/2024 8:59 AM EST Height 160 cm (5' 2.99) 05/27/2024 8:59 AM EST Body Mass Index 40.93 05/27/2024 8:59 AM EST documented in this encounter Patient Instructions * Patient Instructions* Daryn Garrett MD - 05/27/2024 9:00 AM EST Thanks for the visit. I called in Augmentin for your belly's pain, thinking it could be a recurrent diverticulitis I called in lorazepam, that was prescribed by your psychiatrist before You are due for A1c in June, I will see you in 4 weeks documented in this encounter Progress Notes * Daryn Garrett MD - 05/27/2024 9:00 AM EST Chief Complaint Patient presents with Medication Check Subjective: HPI: Alize Gramajo is a 63 y.o. female presenting to Internal Medicine at [facility] for a clinicvisit. Follow up Patient new to me, formerly seen by Dr. Padilla, chart review done Patient with CAD, DM, HTN, obesity, smoker, bipolar, conj melanoma, recently seen for diverticulitis at local ER, feels it is coming on again, LLQ, feeling sick, denies fever and chills, has appt with GI She needs her psych meds now prescribed here because she quit seeing her local psychiatrist Medications 03/21/24 0821 Medication Sig Taking? nitroGLYcerin (Nitrostat) 0.[address] 1 tablet under the tongue See Admin Instructions. Yes sucralfate (Carafate) 100 mg/mL Suspension Take 10 mLs by mouth 4 times daily. Yes Mounjaro 5 mg/0.5 mL Pen Injector Inject 5 mg subcutaneously once a week. Indications: type 2 diabetes mellitus Yes Miscellaneous Medical Supply Misc by [facility].(Non-Drug; Combo Route) route. Yes docusate sodium (Colace) 100 mg capsule Take 1 capsule by mouth daily. Yes polyethylene glycoL (Miralax) 17 gram oral powder packet Take 17 g by mouth daily. Yes albuteroL 90 mcg/actuation inhaler (HFA) Inhale 2 puffs into the lungs every 4 hours as needed for Wheezing. USE WITH SPACER Yes amLODIPine (Norvasc) 5 mg tablet Take 1 tablet by mouth daily. Yes pantoprazole EC (Protonix) [address] tablet Take 1 tablet by mouth daily. Yes losartan (Cozaar) 100 mg tablet Take 1 tablet by mouth daily. Yes metFORMIN XR (Glucophage XR) 500 mg ER 24 hr tablet Take 2 tablets by mouth 2 times daily (with meals). Yes metoprolol succinate XL (Toprol-XL) 25 mg ER 24 hr tablet Take 1 tablet by mouth daily. Yes clopidogreL (Plavix) 75 mg tablet Take 1 tablet by mouth daily. Yes simvastatin (Zocor) 10 mg tablet Take 1 tablet by mouth daily. Yes tretinoin (RETIN-A) 0.025 % Cream Apply a pea size amount to the face nightly. As it can be irritating, start 2-3 times per week and slowly increase to nightly use. Can also mix with a bland moisturizer to help with irritation. Yes BD Alcohol Swabs Pads, Medicated USE TOPICALLY ONCE DAILY Yes insulin needles, disposable, 32 gauge x Needle Inject 1 each subcutaneously daily. Indications: diabetes Yes nicotine (Nicoderm CQ) 21 mg/24 hr Patch 24 hr Change 1 patch on the skin daily. See package instructions Yes nicotine polacrilex (Nicorette) 4 mg gum Take 1 each by mouth every 2 hours as needed for Smoking cessation. Nothing but water 15 min before or during use. Yes fluticasone kpjdluo-yhipegceeyud-osrwzxmtdz (Trelegy Ellipta) 200-62.5-25 mcg Inhale 1 puff into the lungs daily. Rinse mouth after use Yes fluticasone propionate (Flonase) 50 mcg/actuation [place], Suspension SPRAY 1 SPRAY IN EACH NOSTRIL TWO TIMES A DAY Yes lamoTRIgine (LaMICtal) 150 mg tablet Take 150 mg by mouth Daily at Noon. Yes Blood-Glucose Meter,Continuous (Dexcom G7 Sales Assistant) Misc 1 Device by [facility].(Non- Drug; Combo Route) route continuous. Yes Blood-Glucose Sensor (Dexcom G7 Sensor) Device 1 Device by [facility].(Non-Drug; Combo Route) route every10 days. Yes inhalational spacing device (Hesham Aerosol [place] Enhancer) Spacer 1 each by [facility].(Non-Drug; Combo Route) route as needed. Yes lamoTRIgine (LaMICtal) 25 mg tablet Take 50 mg by mouth nightly. Indications: bipolar disorder in remission Yes loratadine (Claritin) 10 mg Tablet Take 1 tablet by mouth daily. Yes freestyle lite strips USE TO TEST THREE TIMES A DAY Yes FreeStyle Lancets 28 gauge Misc 1 each by Other route 3 times daily. Indications: diabetes Yes melatonin 10 mg Capsule Take 1 capsule by mouth nightly. Yes busPIRone (Buspar) 30 mg Tablet Take 30 mg by mouth 2 times daily. Yes FreeStyle Lite Meter Kit Yes traZODone (Desyrel) 100 mg Tablet Take 1 tablet by mouth nightly. Yes aspirin EC 81 mg Tablet, Delayed Release (E.C.) Take 81 mg by mouth daily. Yes amoxicillin-clavulanate (Augmentin) 875-125 mg tablet Take 1 tablet by mouth 2 times daily. LORazepam (Ativan) 0.5 mg tablet Take 1 tablet by mouth every 8 hours. Indications: anxious ROS: Review of Systems Constitutional: Negative for chills and fever. Gastrointestinal: Positive for abdominal pain (LLQ). Negative for abdominal distention, constipation and diarrhea. Objective: VS: BP 134/78 (BP Location (NBP): Right arm, Patient Position: Sitting, BP Cuff Sizes: Adult (25-34cm)) Pulse (!) 42 Temp 36.3 ??C (97.4 ??F) (Temporal) Ht 160 cm (5' 2.99) Wt 104.8 kg (231lb) SpO2 99% BMI 40.93 kg/m?? Physical Exam Vitals reviewed. Constitutional: Appearance: Normal appearance. She is not ill-appearing. Eyes: General: No scleral icterus. Abdominal: General: There is no distension. Palpations: There is no mass. Tenderness: There is abdominal tenderness (LLQ). There is no right CVA tenderness, left CVA tenderness, guarding or rebound. Hernia: No hernia is present. Assessment and Plan: Alize was seen today for medication check. Diagnoses and all orders for this visit: Essential hypertension - Basic Metabolic Panel Non-fasting; Future Bipolar affective disorder in remission Type 2 diabetes mellitus with diabetic polyneuropathy, with long-term current use of insulin - Hemoglobin A1c; Future Coronary artery disease involving [place] coronary artery of [place] heart with angina pectoris Diverticulitis of large intestine without perforation or abscess with bleeding Type 2 diabetes mellitus without long-term current use of insulin Other orders - amoxicillin-clavulanate (Augmentin) 875-125 mg tablet; Take 1 tablet by mouth 2 times daily. - LORazepam (Ativan) 0.5 mg tablet; Take 1 tablet by mouth every 8 hours. Indications: anxious Patient new to me, she has a lot going on with intersecting multiple chronic illnesses She thinks she has another bout of diverticulitis, I say the exam is rather unsupportive of this diagnosis, with a mild lower left quadrant pain, we agreed on a course of augmentin but go to the ER if worse, and discontinue after 7 days if not changed She needs labs and a treatment agreement for the lorazepam, her next A1c is due in 07/02 when I seeher again Patient Instructions Thanks for the visit. I called in Augmentin for your belly's pain, thinking it could be a recurrent diverticulitis I called in lorazepam, that was prescribed by your psychiatrist before You are due for A1c in June, I will see you in 4 weeks FOLLOWUP: Return in about 4 weeks (around 06/24/2024). Next appointment with Daryn Garrett MD: Visit date not found Next appointment at Internal Medicine at [facility]: Visit date not found documented in this encounter Plan of Treatment Upcoming Encounters Date Type Department Care Team (Late st Contact Info) Description 06/28/2024 9:30 AM EST Office Visit Internal Medicine at [facility] [address] [place] [address] Daryn Garrett MD [facility] DR LILI AZEVEDO [place] [address] 10/02/2024 1:00 PM EDT Office [place] [phone] Juanpablo Hernandez MD [facility] [place] [address] 01/30/2025 1:30 PM EDT Laboratory Appointment Lab at [facility] Hematology Oncology [address] [place] [phone] 01/30/2025 3:[address] [place] [address] Arturo Cordero MD [facility] DR [place]AT[place] [address] 01/30/2025 4:15 PM EDT Office Visit Hematology [place] [address] Arturo Cordero MD [facility] DR [place] [address] Scheduled Orders Name Type Priority Associated Diagnoses Orde r Schedule Basic Metabolic Panel Non-fasting Lab Routine Essential hypertension Expected: 05/27/2024, Expires: 11/26/2024 Hemoglobin A1c Lab Routine Type 2 diabetes mellitus with diabetic polyneuropathy, with long-term current use of insulin Expected: 05/27/2024, Expires: 11/26/2024 Scheduled Procedures Name Priority Associated Diagnoses Date/Ti me EGD, UPPER GI ENDOSCOPY (WRV U 2.09) Irritable bowel syndrome with constipation COLONOSCOPY, DIAGNOSTIC (WRV U 3.26) Irritable bowel syndrome with constipation documented as of this encounter Visit Diagnoses Diagnosis Essential hypertension Unspecified essential hypertension Bipolar affective disorder in remission Type 2 diabetes mellitus with diabetic polyneuropathy, with long-term current use of insulin Coronary artery disease involving k[place] coronary artery of kival[place] heart with angina pectoris Diverticulitis of large intestine without perforation or abscess with bleeding Diverticulitis of colon with hemorrhage Type 2 diabetes mellitus without long-term current use of insulin documented in this encounter Care Teams Housing Liaison Relationship Specialty Start Date End Date Daryn Garrett MD [facility] DR LILI AZEVEDO [place] [address] PCP - General 04/10/24 documented as of this encounter
--- OUTSIDE RECORDS SUMMARY | 2024-06-07 13:29 | XMS_ITS | Encounter Summary ---
Author Organization [facility] Address [facility] [place] [address] Care Team Providers Care Mechanics Supervisor Name Role Phone Daryn Garrett MD Primary Care Provider Encounter Details Date Type Department Care Team (Latest Contact Info) Description 05/01/2024 Travel Social History Tobacco Use Types Packs/Day [...] AM EST Office Visit Internal Medicine at [facility] [address] [place] [address] Daryn Garrett MD [facility] DR LILI [place] [address] 10/02/2024 1:00 PM EDT Office [place] [phone] Juanpablo Hernandez MD [facility] [place] [address] 01/30/2025 1:30 PM EDT Laboratory Appointment Lab at [facility] Hematology Oncology [address] [place] [phone] 01/30/2025 3:[address] [place] [phone] Arturo Cordero MD [facility] [place] [address] 01/30/2025 4:15 PM EDT Office Visit Hematology [place] [address] Arturo Cordero MD [facility] [place] [address] Scheduled Procedures Name Priority Associated Diagnoses Date/Ti me EGD, UPPER GI ENDOSCOPY (WRV U 2.09) Irritable bowel syndrome with constipation COLONOSCOPY, DIAGNOSTIC (WRV U 3.26) Irritable bowel syndrome with constipation documented as of this encounter Visit Diagnoses Not on filedocumented in this encounter Care Teams Mechanics Supervisor Relationship Specialty Start Date End Date Daryn Garrett MD [facility] DR LILI [place] [address] PCP - General 04/10/24 documented as of this encounter
--- OUTSIDE RECORDS SUMMARY | 2024-06-07 13:29 | XMS_ITS | Encounter Summary ---
Author Organization [facility] Address [facility] [place] [address] Care Team Providers Care Pipe Fitter Maintenance Name Role Phone Rodney Padilla MD Primary Care Provider Reason for Visit * Reason Comments Diabetes Encounter Details Date Type Department Care Team (Late st Contact Info) Description 03/20/2024 2:00 PM EDT TH Visit (TeleHealth) Family Medicine at [facility] [address] [place] [phone] Julia Low, [facility] Type 2 diabetes mellitus without [...] conditions: Yes peripheral neuropathy and cardiovascular disease (DC/CAD) [] History of diabetes-related amputations [] CHF [] Personal or family history of thyroid cancer [] Personal history of pancreatitis [x] NAFLD/BARRERA - Qt of fatty liver on CT scan from 2021 unclear if ever evaluated and ruled in/out Date of last eye exam: unknown Date of last foot exam: unknown Referring Provider/date: Rodney Padilla MD 06/14/21 Tamera Khan SUPERVISING EDITOR TRAILER Health Beliefs and Attitudes Feelings about having [...] CGM G7 Receives Dexcom G7 CGM through [employer]. Prior Averages: 08/26/21 09/09/21 09/24/21 11/14/21 11/03/22 12/01/22 01/03/23 08/18/23 10/26/23 Daily Avg 157 168 131 138 175 153 176 211 152 eA1c 8.07090 8.46 7.20 7.44 8.7 7.95 8.75 9.96 7.92 Acute complications of diabetes: hypoglycemia pt reported BG 70 mg/dL following initiation of mounjaro leading to discontinuation oflantus Have you had a low blood sugar reaction? If yes, how did you feel? Yes, notified by [employer] alert ; treated with 20 oz coca-cola [...] TOPICALLY ONCE DAILY 100 each 3 fluticasone gljvawd-ybqbvwhtwvfs-iznsxfxadl (Trelegy Ellipta) 200-62.5-25 mcg Inhale 1 puff into the lungs daily. Rinse mouth after use 1 each 11 fluticasone propionate (Flonase) 50 mcg/actuation [place], Suspension SPRAY 1 SPRAY IN EACH NOSTRIL TWO TIMES A DAY 48 mL 3 lamoTRIgine (LaMICtal) 150 mg tablet Take 150 mg by mouth Daily at Noon. Blood-Glucose Meter,Continuous (Dexcom G7 Compensation Specialist) Misc 1 Device by [facility].(Non- Drug; Combo Route) route continuous. Blood-Glucose Sensor (Dexcom G7 Sensor) Device 1 Device by [facility].(Non-Drug; Combo Route) route every10 days. [...] (before meals and nightly). Miscellaneous Medical Supply [facility] by [facility].(Non-Drug; Combo Route) route. docusate sodium (Colace) 100 [...] 0 insulin needles, disposable, 32 gauge x /32 [...] each 3 inhalational spacing device (Hesham Aerosol [place] Enhancer) Spacer 1 each by Misc.(Non-Drug; Combo [...] this differs from GMI of 6.6 from Daxcom G7. Possible contributors to deviation between laboratory A1c and CGM GMI include family stressors and stomach pain Called [facility] [address] lab to rule out laboratory error [...] AM EST Office Visit Internal Medicine at [facility] [address] [place] [address] Daryn Garrett MD [facility] DR LILI [place] [address] 10/02/2024 1:00 PM EDT Office Visit Ophthalmology at [place] [phone] Juanpablo Hernandez MD [facility] [place] [address] 01/30/2025 1:30 PM EDT Laboratory Appointment Lab at [facility] Hematology Oncology [address] [place] [address] 01/30/2025 3:[address] Scan at [address] Arturo Cordero MD [facility] DR HEMATOLOGY [place] [address] 01/30/2025 4:15 PM EDT Office Visit Hematology and Oncology at [place] [address] Arturo Cordero MD [facility] DR HEMATOLOGY [place] [address] Scheduled Procedures Name Priority Associated Diagnoses Date/Ti me EGD, UPPER GI ENDOSCOPY (WRV U 2.09) Irritable bowel syndrome with constipation COLONOSCOPY, DIAGNOSTIC (WRV U 3.26) Irritable bowel syndrome with constipation documented as of this encounter Visit Diagnoses Diagnosis Type 2 diabetes mellitus without long-term current use of insulin- Primary documented in this encounter Care Teams Pipe Fitter Maintenance Relationship Specialty Start Date End Date Rodney Padilla MD PCP - General 07/18/22 04/09/24 documented as of this encounter
--- OUTSIDE RECORDS SUMMARY | 2024-06-07 13:29 | XMS_ITS | Encounter Summary ---
Author Organization [facility] [place] [address] Care Team Providers Care Plastic Duplicator Name Role Phone Rodney Padilla MD Primary Care Provider [phone] Reason for Visit * Reason Comments Medication Refill Encounter Details Date Type Department Care Team (Late st Contact Info) Description 03/28/2024 Refill Family Medicine at [facility] [address] [place] [phone] Rodney Padilla MD [address] [place] [address] [place] [address] Social History Tobacco Use Types Packs/Day [...] AM EST Office Visit Internal Medicine at [facility] [address] [place] [phone] Daryn Garrett MD [facility] DR LILI [place] [address] 10/02/2024 1:00 PM EDT Office [place] [phone] Juanpablo Hernandez MD [facility] [place] [address] 01/30/2025 1:30 PM EDT Laboratory Appoint[place] [facility] [place] [address] [place] [phone] 01/30/2025 3:[address] [place] [phone] Arturo Cordero MD [facility] DR [place] [address] 01/30/2025 4:15 PM EDT Office Visit Hematology [place] [phone] Arturo Cordero MD [facility] DR [place]OLOGY [place] [address] Scheduled Procedures Name Priority Associated Diagnoses Date/Ti me EGD, UPPER GI ENDOSCOPY (WRV U 2.09) Irritable bowel syndrome with constipation COLONOSCOPY, DIAGNOSTIC (WRV U 3.26) Irritable bowel syndrome with constipation documented as of this encounter Visit Diagnoses Not on filedocumented in this encounter Care Teams Plastic Duplicator Relationship Specialty Start Date End Date Rodney Padilla MD PCP - General 07/18/22 04/09/24 documented as of this encounter
--- OUTSIDE RECORDS SUMMARY | 2024-06-07 13:29 | XMS_ITS | Encounter Summary ---
Author Organization [facility] [place] [address] Care Team Providers Care Motorcycle Subassembler Name Role Phone Daryn Garrett MD Primary Care Provider Reason for Referral * Diagnostic Test (Routine) - New Request Specialty Diagnoses / Procedures Referred By Contac t Referred To Contact Gastroenterology Diagnoses Irritable bowel syndrome with constipation Procedures Breath Hydrogen Test Juanpablo Ennis MD [facility] [place] [address] [facility] [address] [place] [address] Referral ID Status Reason Start Date Expiration Date Visits Requested Visits Authorized [id number] New Request Consult, Test & Treat 4 06/04/2025 1 1 * Diagnostic Test (Routine) - New Request Specialty Diagnoses / Procedures Referred By Contac t Referred To Contact Gastroenterology Diagnoses Irritable bowel syndrome with constipation Procedures High Definition Anal Manometry Juanpablo Ennis MD [facility] [place] [address] [facility] [address] [place] [address] Referral ID Status Reason Start Date Expiration Date Visits Requested Visits Authorized [id number] New Request Consult, Test & Treat 4 06/04/2025 1 1 Reason for Visit * Consultation (Urgent) - Authorized Specialty Diagnoses / Procedures Referred By Contac t Referred To Contact Gastroenterology Diagnoses Chronic LLQ pain EVAL AND TREAT ACR Tonia Mcrae, [employer]OOKKEEP[employer] SUPERVISOR [address] [place] [address] [facility] [address] [place] [address] Referral ID Status Reason Start Date Expiration Date Visits Requested Visits Authorized [id number] Authorized Consult, Test & Treat PCP Updated and/or Approved 04/16/2024 04/16/2025 6 6 Encounter Details Date Type Department Care Team (Late st Contact Info) Description 06/04/2024 1:00 PM EST Office [place] [address] Juanpablo Ennis MD [facility] [place] [address] Irritable bowel syndrome with constipation Social History [...] Pulse 72 06/04/2024 12:53 PM EST Temperature - - Respiratory Rate - - Oxygen Saturation - - Inhaled Oxygen Concentration - - Weight 104.6 kg (230 lb 11.2 oz) 2023 12:53 PM EST Height 161.3 cm (5' 3.5) 06/04/2024 12 :53 PM EST Body Mass Index 40.23 06/04/2024 12:53 PM EST documented in this encounter Progress Notes * Juanpablo Ennis MD - 06/04/2024 1:00 PM EST Chief Complaint: Alize Gramajo is a 63 y.o. patient referred for consultation by Dr. Samuel Hadley chronic abdominal pain History of Present Illness: 63 y.o. female with past medical history of coronary artery disease, dyslipidemia, hypertension, depression, obstructive sleep apnea, diabetes mellitus type 2, anxiety, diabetic neuropathy, kidney cancer, C- section, cognitive impairment She was [place] [facility] [place] Alejandra Pop APRN in 2021. Also seen by Ashlyn Severino APRN in 2021. Her biggest concern is chronic abdominal bloating. Variable course over time with no recent dramatic worsening. Chronic dyspepsia symptoms with early satiety, post-prandial fullness, bloating,and upper abdominaldiscomfort. Variable course over time with no recent dramatic worsening. No regular nausea and vomiting. No dysphagia. No heartburn or acid regurgitation. Chronically altered bowel movements - historically predominantly constipation. Variable course overtime with no recent dramatic worsening. Actually improved with recent initiation of regular miralax. Currently 1 bowel movement every 1-2 days. They have associated generalized lower abdominal discomfort and bloating. History of straining and sensation of incomplete emptying. No manual maneuvers needed. No blood in stools or melena. Appetite poor and patient has lost 15 lbs over the last 3-4 months. They admit to a hypocaloric diet. Noted started GLP-1a 3 months ago but unclear if symptoms are worse. Diverticulitis - one month ago as per patient. CT confirmed in ED. Treated with antibiotics. History of diabetes mellitus type 2 with diagnosis approximately 10+ years ago. Patient reports that glycemic control has overall been generally quite poor. History of diabetic peripheral neuropathy.Last A1c 7.6. Current Regimen: Pantoprazole 40 mg once a day BuSpar 30 mg twice daily for mental health Colace 100 mg OD MiraLAX 17 g once a day (most days) Carafate 1 g 4 times daily Past Therapies: Omeprazole Simethicone Lifestyle NSAID use: no Cannabis use: no Opioid use: no Caffeine/Soda/Artificial Sugar: no Diet: no Exercise: no Child Births: one Depression/Anxiety/Stress: yes will all H/O abuse: no Disordered Eating: no Work: on disability for cognitive issues Review of systems: 14-system ROS reviewed and negative except as above Medications: Outpatient Medications Prior to Visit Medication Sig Dispense Refill tirzepatide (Mounjaro) 7.5 mg/0.5 mL Pen Injector Inject 7.5 mg subcutaneously once a week. 3 mL 0 amoxicillin-clavulanate (Augmentin) 875-125 mg tablet Take 1 tablet by mouth 2 times daily. 20 tablet 0 LORazepam (Ativan) 0.5 mg tablet Take 1 tablet by mouth every 8 hours. Indications: anxious 90 tablet 3 nitroGLYcerin (Nitrostat) 0.[address] 1 tablet under the tongue See Admin Instructions. 30 tablet 5 sucralfate (Carafate) 100 mg/mL Suspension Take 10 mLs by mouth 4 times daily. 3726 mL 3 Miscellaneous Medical Supply Misc by [employer] [facility] [employer].(Non-Drug; Combo Route) route. docusate sodium (Colace) 100 mg capsule Take 1 capsule by mouth daily. 90 capsule 3 polyethylene glycoL (Miralax) 17 gram oral powder packet Take 17 g by mouth daily. 90 each 3 albuteroL 90 mcg/actuation inhaler (HFA) Inhale 2 [...] tablet by mouth daily. 90 tablet 3 tretinoin (RETIN-A) 0.025 % Cream Apply a [...] or during use. 100 each 3 fluticasone irkazwm-tvvijpgvownh-fbolmtrglj (Trelegy Ellipta) 200-62.5-25 mcg Inhale 1 puff into the lungs daily. Rinse mouth after use 1 each 11 fluticasone propionate (Flonase) 50 mcg/actuation Nichols, Suspension SPRAY 1 SPRAY IN EACH NOSTRIL TWO TIMES A DAY 48 mL 3 lamoTRIgine (LaMICtal) 150 mg tablet Take 150 mg by mouth Daily at Noon. Blood-Glucose Meter,Continuous (Dexcom G7 Electrical Timing Device Calibrator) Misc 1 Device by Mis.(Non- Drug; Combo Route) route continuous. Blood-Glucose Sensor (Dexcom G7 Sensor) Device 1 Device by Mis.(Non-Drug; Combo Route) route every10 days. 3 each 11 inhalational spacing device (Hesham Aerosol Kimball Enhancer) Spacer 1 each by Misc.(Non-Drug; Combo Route) route as needed. 1 each 2 lamoTRIgine (LaMICtal) 25 mg tablet Take 50 mg by mouth nightly. Indications: bipolar disorder in remission loratadine (Claritin) 10 mg Tablet Take 1 tablet by mouth daily. 90 tablet 3 freestyle lite strips USE TO TEST THREE TIMES A DAY 300 strip 3 FreeStyle Lancets 28 gauge Misc 1 each by Other route 3 times daily. Indications: diabetes 100 each11 melatonin 10 mg Capsule Take 1 capsule by mouth nightly. busPIRone (Buspar) 30 mg Tablet Take 30 mg by mouth 2 times daily. FreeStyle Lite Meter Kit traZODone (Desyrel) 100 mg Tablet Take 1 tablet by mouth nightly. 90 tablet 3 aspirin EC 81 mg Tablet, Delayed Release (E.C.) Take 81 mg by mouth daily. No facility-administered medications prior to visit. Allergies: is allergic to codeine phosphate, erythromycin base, azithromycin, ibuprofen, lisinopril, and nsaids (non-steroidal anti-inflammatory drug). Past Medical History: has a past medical history of Allergy, Antiplatelet or antithrombotic long-term use, Arthritis, Asthma, Atherosclerosis of minto coronary artery of minto heart with angina pectoris (10/09/2007), CAD (coronary [...] Coronary angioplasty with stent; Lap, Partial Nephrectomy (21226) (Left, 06/28/2019); Excis Cornea Lesn (38712) (Left, 05/14/2020); Destr Corneal Lesn, Cryo, Photo, Therm ([id number]) (Left, 05/14/2020); PlaceAmniotic Membrane Ocular Surface;Single Layer Sutured (04140) (Left, 05/14/2020); laser surgery; andcryopexy (Left). Family History: family history includes Bladder Cancer (age of onset: 56) in her maternal grandmother; Brain Cancer in her paternal aunt; Breast Cancer in her maternal aunt; Cancer in her maternal half-brother and paternal aunt; Heart Disease in her father; Kidney Cancer in her maternal aunt; Kidney Cancer (age of onset: 56) in her maternal grandmother; Medical History Unknown in an other family member; Uterine Cancer (age of onset: 76) in her mother. denies family history of colon cancer, IBD, or celiac disease in mother father or other family members Social History: reports that she has been smoking cigarettes. She has a 40 pack- year smoking history. She has never used smokeless tobacco. She reports that she does not drink alcohol and does not use drugs. Physical Exam: VITAL SIGNS: There were no vitals taken for this visit. BMI: There is no height or weight on file to calculate BMI. Gen: nad, normal body habitus Eyes: no scleral icterus CV: rrr, no m/r/g, radial pulse 2+, no pedal edema Pulm: ctab, normal respiratory effort GI: soft without masses, nontender, nondistended, normoactive bowel sounds, no hernias Skin: warm, dry, no rashes, no induration Neurologic: intact to light touch Psych: appropriate affect, a+ox3 Questionnaire: 05/30/2024 2:00 PM Q-GI MOTILITY CLINIC BATTERY CDC Healthy Day Score Incomplete Work Absenteeism 1 Work Presenteeism Incomplete Laboratory studies, imaging, and procedures (my review of prior records): 1. Gastric emptying scan October 18, [address] chest/abd/pelvis 12/23/21; no metastatic disease [...] referral note outside hospital; polyps x 4 7. Hydrogen breath test May 13, 2022 negative. Excess production of methane noted 8. Ultrasound 06/08/2021: IMPRESSION 1. Normal gallbladder. Specifically, no cholelithiasis. No biliary ductal dilatation. 2. Stable mild hepatomegaly with known hepatic steatosis, small areas of focal fatty sparing noted adjacent to the gallbladder. No sonographically evident hepatic mass. 3. Normal right kidney. 4. Limited evaluation of the pancreas. 9. Fibroscan 07/16/2021 Median kPa: 6.8 kPa Mean IQR: 19 % (goal is <30 %) Number of valid measurements: 18 (at least 10 required) Number of invalid measurements: 8 Predicted fibrosis stage: F0-1 CAP (dB/m): 394 Estimated steatosis grade: 3/3 % hepatocytes affected: >66 % Liver Fibrosis Score (Fib 4) was 0.72 at 07/16/2021 9:47 AM Assessment/Plan: Ms. Gramajo is a 63 y.o. patient with with past medical history of coronary artery disease, dyslipidemia, hypertension, depression, obstructive sleep apnea, diabetes mellitus type 2, anxiety, diabetic neuropathy, kidney cancer, cognitive impairment, with the following issues: #Chronic dyspepsia symptoms consistent with functional dyspepsia - postprandial distress subtype (PDS) Prominent bloating (most bothersome symptom). Noted history of longstanding poorly controlled diabetes so suspect element of diabetic autonomic neuropathy. Patients with diabetes are not risk for SIBO but she had negative hydrogen breath test in 2021. No evidence of delayed gastric emptying on prior GES. Constipation likely contributing. Noted started GLP-1a 3 months ago but unclear if symptoms are worse. #Chronic altered bowel pattern with associated abdominal discomfort and bloating consistent with IBS -constipation predominant (IBS-C). Likely element of diabetic autonomic neuropathy. Possible element of dyssynergic defecation (DD). #Diverticulitis - one month ago as per patient. CT confirmed in ED. Treated with antibiotics. Prolonged LLQ pain (did a second course of antibiotics with PCP) but settling now and benign exam today. # MASLD -previously seen by [facility] [place] and had a reassuring FibroScan in 2021 without any evidence of fibrosis although steatosis was seen. Recommended annual FIB-4 score via PCP. We discussed that complete symptom relief may not be a fully achievable goal for this chronic condition, but that improvement in quality of life, healthy days at work and family functions, and also general symptom improvement may be more reasonable goals. We discussed that treatments should be tried individually and for periods of at least 4-8 weeks to truly assess symptom response. I did my bestto answer questions to the fullest ability. We discussed that recommended treatments should be tried individually for at least three months at a time to truly assess for a meaningful response, or as long as tolerated, before changing therapy. Recommendations: We discussed GI functional/motility disorders in depth today including pathophysiology, expected course, impact and treatment categories We also discussed realistic goals (with emphasis on improved quality of life) and patient responsibilities. Please see the patient handout for recommendations on general treatment measures including lifestyle, dietary, and non-prescription pharmacologic options. We discussed diabetic gastroparesis/diabetic autonomic neuropathy including pathogenesis, prognosis, and lifestyle, dietary and pharmacologic treatment options. I emphasized the importance of glycemic control as this is the single most important management factor to improve symptoms and decrease the likelihood of progressive disease. I recommend follow-up with PCP for ongoing diabetes management.Consider referral to process steward if refractory suboptimal glycemic control. We discussed diverticulitis in depth today including clinical presentation, recommended evaluation,risk of complications, and management. We also discussed the possibility of recurrent diverticulitis and possible role of surgical management. Risk of recurrent diverticulitis: 1 year 5 year 10 year After 1st attack 8% 17% 22% After 2nd attack 19% 44% 55% We briefly discussed MASLD including pathogenesis, expected course and possible complications. We also reviewed risk factor management including weight loss and exercise (with specific goals of 5% weight loss in 6 months and 10% in one year) and control of diabetes/dyslipidemia if present (via PCP +/- Endocrinology). - Follow-up yearly with PCP for repeat liver blood work including liver enzymes and liver function tests - If the patient's liver enzymes become elevated, or if their FIB-4 becomes greater than 1.3 (calculation using AST, ALT, platelets), then I would recommend that they be referred to hepatology for further assessment. I will arrange a comprehensive evaluation of the structure and function of the patient's GI tract including the following investigations +/- referrals: EGD AND Colonoscopy with MAC Bloodwork - anti-TTG, TSH, CMP Consider CT abdomen and pelvis if LLQ pain doesn't completely settle to look for diverticulitis complications such as abscess. Consider repeat gastric emptying study if worsening dyspepsia (likely abnormal given GLP-1a) Repeat hydrogen breath test Anorectal manometry Unclear rationale for chronic usage of sucralfate - can trial tapering off Consider referral to GI Behavioral Health team to work on specific psychologic measures for functional disorders Consider referral to GI dietitian I will arrange a follow-up appointment after the above investigations to review the results and consolidate the diagnosis. Please note that generally specific treatment recommendations will not be discussed at that time. An additional follow-up appointment with a motility ESTHELA will be scheduled after this appointment to discuss specific recommendations for management. Patients should continue to work on general measures provided in our handout while awaiting this appointment. We also discussed the collaborative care model of the [facility] GI motility program. The patient should continue to work with their PCP +/- local packing house supervisor as the primary point(s) of contactfor urgent issues, medication refills and adjustments as needed for continuity of care purposes in between visits to our center. We encourage patients to set up a SPECIFIC follow- up with their PCP todiscuss our recommendations. The PCP may consider referral to a local packing house supervisor if the patient does not have a local packing house supervisor currently (if outside the [facility] [place] Yearly or bi-yearly visits with a member of the motility team may be available for co-management purposes depending upon the specific circumstances of the patient's medical condition. RTC with me in after testing completed TIME SPENT WITH PATIENT Time spent reviewing records prior to this encounter on day of appointment: 5 minutes Time spent during encounter with patient including counselin minutes Time spent documenting encounter after office visit: 2 minutes Juanpablo Ennis MD [place] [id number] documented in this encounter Miscellaneous Notes * Addendum Note - Juanpablo Ennis MD - 06/04/2024 1:00 PM ESTAddended by: JUANPABLO ENNIS on: 06/04/2024 02:04 PM Modules accepted: Orders documented in this encounter Plan of Treatment Upcoming Encounters Date Type Department Care Team (Late st Contact Info) Description 06/28/2024 9:30 AM EST Office Visit Internal Medicine at [address] [place] [address] Daryn Garrett MD [facility] DR [facility] [place] [address] 10/02/2024 1:00 PM EDT Office [place] [phone] Juanpablo Hernandez MD [facility] [address] 01/30/2025 1:30 PM EDT Laboratory Appointment Lab at [facility] [place] [address] [place] [phone] 01/30/2025 3:[address] [place] [phone] Arturo Cordero MD [facility] DR [place] [address] 01/30/2025 4:15 PM EDT Office Visit Hematology [place] [phone] Arturo Cordero MD [facility] [place] [address] Scheduled Orders Name Type Priority Associated Diagnoses Orde r Schedule High Definition Anal Manometry GI Routine Irritable bowel syndrome with constipation Expected: 06/04/2024 (Approximate), Expires: 12/04/2024 ENDOSCOPY CASE REQUEST: EGD, UPPER GI ENDOSCOPY (WRVU 2.09), COLONOSCOPY, DIAGNOSTIC (WRVU 3.26) Procedures Routine Irritable bowel syndrome with constipation Ordered: 06/04/2024 Breath Hydrogen Test GI Routine Irritable bowel syndrome with constipation Expected: 06/04/2024, Expires: 12/04/2024 Scheduled Procedures Name Priority Associated Diagnoses Date/Ti sc EGD, UPPER GI ENDOSCOPY (WRV U 2.09) Irritable bowel syndrome with constipation COLONOSCOPY, DIAGNOSTIC (WRV U 3.26) Irritable bowel syndrome with constipation documented as of this encounter Results * Comprehensive metabolic panel Non-fasting (06/04/2024 2:37 PM EST) Glucose 167 65 - 199 mg/dL 06/04/2024 3:28 PM [facility] Comment:Glucose Concentratio n >=200 mg/dL plus symptoms is consistent with Diabetes Mellitus. Blood Urea Nitrogen 12 8 - 18 mg/dL 06/04/2024 3:28 PM [facility] Creatinine 0.86 0.70 - 1.20 mg/dL 06/04/2024 3:28 PM [facility] Sodium 142 135 - 145 mMol/L 06/04/2024 3:28 PM [facility] Potassium 4.1 3.5 - 5.0 mMol/L 06/04/2024 3:28 PM [facility] Chloride 105 98 - 107 mMol/L 06/04/2024 3:28 PM [facility] Carbon Dioxide 26 22 - 31 mMol/L 06/04/2024 3:28 PM [facility] Anion Gap 11 5 - 15 mMol/L 06/04/2024 3:28 PM [facility] Calcium 9.9 8.5 - 10.5 mg/dL 06/04/2024 3:28 PM [facility] Protein, Total 7.4 6.1 - 8.0 g/dL 06/04/2024 3:28 PM [facility] Albumin 4.4 3.2 - 5.2 g/dL 06/04/2024 3:28 PM [facility] Aspartate Aminotransferase 19 <=30 unit/L 06/04/2024 3:28 PM [facility] Alanine Aminotransferase 30 0 - 30 unit/L 06/04/2024 3:28 PM [facility] Alkaline Phosphatase 96 35 - 105 unit/L 06/04/2024 3:28 PM [facility] Bilirubin, Total 0.5 <=1.3 mg/dL 06/04/2024 3:28 PM [facility] Est Glomerular Filtration Rate - Female 76 mL/min/1. 73 m?? 06/04/2024 3:28 PM [facility] Comment: This patient's estimated GFR [...] Foundation Fasting Status No 06/04/2024 3:28 PM [facility] Blood VENOUS BLOOD SPECIMEN / Unknown Venipuncture / Unknown 06/04/2024 2:37 PM EST 06/04/2024 2:37 PM EST Juanpablo Ennis MD CHEMISTRY ORDERABLES [facility] [place] [address] * Tissue Transglutaminase, IgA (06/04/2024 2:37 PM EST) TTG IgA Ab 0.4 <=10.0 U/mL 06/05/2024 11:40 AM [facility] Blood VENOUS BLOOD SPECIMEN / Unknown Venipuncture / Unknown 06/04/2024 2:37 PM EST 06/04/2024 2:37 PM EST Narrative [facility] - 06/05/2024 11:40 AM EST <7 U/mL: Negative 7-10 U/mL: Indeterminate >10 U/mL: Positive Juanpablo Ennis MD IMMUNOLOGY ORDERABLE S [facility] [place] [address] * IgG (06/04/2024 2:37 PM EST) IgG 923 700 - 1,600 mg/dL 06/04/2024 3:19 PM EST [facility] Blood VENOUS BLOOD SPECIMEN / Unknown Venipuncture / Unknown 06/04/2024 2:37 PM EST 06/04/2024 2:37 PM EST Juanpablo Ennis MD CHEMISTRY ORDERABLES Performing Organization Address City/[facility]/ZIP Co de Phone Number [facility] [place] [address] * IgA (06/04/2024 2:37 PM EST) IgA 262 70 - 400 mg/dL 06/04/2024 3:19 PM EST [facility] Blood VENOUS BLOOD SPECIMEN / Unknown Venipuncture / Unknown 06/04/2024 2:37 PM EST 06/04/2024 2:37 PM EST Juanpablo Ennis MD CHEMISTRY ORDERABLES Performing Organization Address City/[facility]/ZIP Co de Phone Number [facility] [place] [address] * TSH [place] (06/04/2024 2:37 PM EST) Thyroid Stimulating Hormone 2.50 0.27 - 4.20 mcIU/mL 06/04/2024 3:28 PM EST [facility] Comment: Reference Interval (mcIU/mL): ?? Females: ? First Trimester: 0.23-3.88 ? Second Trimester: 0.22-3.90 ? Third Trimester: 0.44-4.66 Blood VENOUS BLOOD SPECIMEN / Unknown Venipuncture / Unknown 06/04/2024 2:37 PM EST 06/04/2024 2:37 PM EST Juanpablo Ennis MD CHEMISTRY ORDERABLES [facility] [place] [address] documented in this encounter Visit Diagnoses Diagnosis Irritable bowel syndrome with constipation Irritable bowel syndrome documented in this encounter Care Teams Motorcycle Subassembler Relationship Specialty Start Date End Date Daryn Garrett MD [facility] [place] [address] PCP - General 04/10/24 documented as of this encounter
--- OUTSIDE RECORDS SUMMARY | 2024-06-07 13:29 | XMS_ITS | Encounter Summary ---
Author Organization Formerly [facility] [place] [address] Care Team Providers Care Chronograph Operator Name Role Phone Rodney Padilla MD Primary Care Provider [phone] Reason for Visit * Reason Onset Date Comments Medication Refill 04/08/2024 Encounter Details Date Type Department Care Team (Late st Contact Info) Description 04/08/2024 Refill Family Medicine at [facility] [address] [place] [address] Rodney Padilla MD [address] [place] [address] [facility] [place] [address] Essential hypertension Social History Tobacco Use Types [...] Last Refill (for each medication): 04/05/2023 3,726mL/3 [place] Medication category requirements (labs etc): na Status [...] AM EST Office Visit Internal Medicine at [address] [phone] Daryn Garrett MD [facility] DR LILI [place] [address] 10/02/2024 1:00 PM EDT Office [place] [phone] Juanpablo Hernandez MD [facility] [place] [address] 01/30/2025 1:30 PM EDT Laboratory Appointment Lab at [facility] [place] [address] [place] [phone] 01/30/2025 3:[address] [place] [phone] Arturo Cordero MD [facility] HEMATOLOG[place] [address] 01/30/2025 4:15 PM EDT Office Visit Hematology [place] [phone] Arturo Cordero MD [facility] HEMATOLOG[place] [address] Scheduled Procedures Name Priority Associated Diagnoses Date/Ti me EGD, UPPER GI ENDOSCOPY (WRV U 2.09) Irritable bowel syndrome with constipation COLONOSCOPY, DIAGNOSTIC (WRV U 3.26) Irritable bowel syndrome with constipation documented as of this encounter Visit Diagnoses Diagnosis Essential hypertension Unspecified essential hypertension documented in this encounter Care Teams Chronograph Operator Relationship Specialty Start Date End Date Rodney Padilla MD PCP - General 07/18/22 04/09/24 documented as of this encounter
--- OUTSIDE RECORDS SUMMARY | 2024-06-07 13:29 | XMS_ITS | Encounter Summary ---
Author Organization [facility] [place] [address] Care Team Providers Care Two Needle Machine Operator Name Role Phone Rodney Padilla MD Primary Care Provider Reason for Visit * Reason Comments Medication Refill Encounter Details Date Type Department Care Team (Late st Contact Info) Description 03/22/2024 Refill Family Medicine at [facility] [address] [place] [address] Rodney Padilla MD [address] [place] [address] [place] [address] Social History Tobacco Use Types Packs/Day [...] Please direct patient to call their pharmacy, [facility] for a refill. documented in this encounter Plan of Treatment Upcoming Encounters Date Type Department Care Team (Late st Contact Info) Description 06/28/2024 9:30 AM EST Office Visit Internal Medicine at [place] [address] [place] [address] Daryn Garrett MD [facility] [address] LILI [place] [address] 10/02/2024 1:00 PM EDT Office Visit [place] [address] Juanpablo Hernandez MD [facility] [place] [address] 01/30/2025 1:30 PM EDT Laboratory Appointment [place] [facility] [place] [address] [place] [phone] 01/30/2025 3:[address] [place] [phone] Arturo Cordero MD [facility] DR [place] [address] 01/30/2025 4:15 PM EDT Office Visit Hematology [place] [phone] Arturo Cordero MD [facility] DR [place] [address] Scheduled Procedures Name Priority Associated Diagnoses Date/Ti me EGD, UPPER GI ENDOSCOPY (WRV U 2.09) Irritable bowel syndrome with constipation COLONOSCOPY, DIAGNOSTIC (WRV U 3.26) Irritable bowel syndrome with constipation documented as of this encounter Visit Diagnoses Not on filedocumented in this encounter Care Teams Two Needle Machine Operator Relationship Specialty Start Date End Date Rodney Padilla MD PCP - General 07/18/22 04/09/24 documented as of this encounter
--- OUTSIDE RECORDS SUMMARY | 2024-06-07 13:29 | XMS_ITS | Encounter Summary ---
Author Organization [facility] [place] [address] Care Team Providers Care Distillery Manager Name Role Phone Daryn Garrett MD Primary Care Provider Reason for Visit * Reason Comments Melanoma Encounter Details Date Type Department Care Team (Late st Contact Info) Description 05/01/2024 1:45 PM EDT Office [place] [phone] Juanpablo Hernandez MD [facility] [place] [address] Conjunctival tumor; Malignant melanoma of conjunctiva, left; [...] * Patient Instructions* Juanpablo Hernandez MD - 05/01/2024 1:45 PM EDT Medications: Use eye medications as [...] Progress Notes * Juanpablo Hernandez MD - 05/01/2024 1:45 PM EDT Images from the original note were not included. Encounter Diagnoses Name Primary? Conjunctival tumor Malignant melanoma of conjunctiva, left Type 2 [...] wk in early 2020 -No signs of recurrence including in fornices. Follow for now -Mild keratopathy which may [...] of 9.4: - no evidence of NPDR/PDR 05/01/24 Cataract: Good BCVA, follow, Previous KEITH - inferior punctal plug implant Current smoker but denies orthopnea, Hx of clear cell renal cell carcinoma encouraged to quit Plan: - Follow up with dermatology and heme/onc as planned, this note to Dr. Cordero - Follow up 4-5 months or as [...] AM EST Office Visit Internal Medicine at [facility] [address] [place] [phone] Daryn Garrett MD [facility] [address] LILI WALKER [place] [address] 10/02/2024 1:00 PM EDT Office [place] [phone] Juanpablo Hernandez MD [facility] [place] [address] 01/30/2025 1:30 PM EDT Laboratory Appointment Lab at [facility] [place] [place] [address] [place] [phone] 01/30/2025 3:[address] [place] [phone] Arturo Cordero MD [facility] DR HEMATOLOGY [place] [address] 01/30/2025 4:15 PM EDT Office Visit Hematology [place] [phone] Arturo Cordero MD [facility] DR HEMATOLOGY [place] [address] Scheduled Procedures Name Priority Associated Diagnoses Date/Ti me EGD, UPPER GI ENDOSCOPY (WRV U 2.09) Irritable bowel syndrome with constipation COLONOSCOPY, DIAGNOSTIC (WRV U 3.26) Irritable bowel syndrome with constipation documented as of this encounter Visit Diagnoses Diagnosis Conjunctival tumor Neoplasms of unspecified nature, other specified sites Malignant melanoma of conjunctiva, left Type 2 diabetes mellitus without long-term current use of insulin documented in this encounter Care Teams Distillery Manager Relationship Specialty Start Date End Date Daryn Garrett MD [facility] [address] LILI WALKER [place] [address] PCP - General 04/10/24 documented as of this encounter
--- OUTSIDE RECORDS SUMMARY | 2024-06-07 13:29 | XMS_ITS | Encounter Summary ---
Author Organization [facility] Address [facility] [place] [address] Care Team Providers Care Director Surgical Name Role Phone Daryn Garrett MD Primary Care Provider Encounter Details Date Type Department Care Team (Latest Contact Info) Description 04/28/2024 Travel Social History Tobacco Use Types Packs/Day [...] AM EST Office Visit Internal Medicine at [facility] [address] [place] [address] Daryn Garrett MD [facility] [address] LILI WALKER [place] [address] 10/02/2024 1:00 PM EDT Office [place] [phone] Juanpablo Hernandez MD [facility] [place] [address] 01/30/2025 1:30 PM EDT Laboratory Appointment Lab at [facility] Hematology Oncology [address] [place] [phone] 01/30/2025 3:[address] [place] [phone] Arturo Cordero MD [facility] HEMATOLOGY [place] [address] 01/30/2025 4:15 PM EDT Office Visit Hematology [place] [address] Arturo Cordero MD [facility] HEMATOLOGY [place] [address] Scheduled Procedures Name Priority Associated Diagnoses Date/Ti me EGD, UPPER GI ENDOSCOPY (WRV U 2.09) Irritable bowel syndrome with constipation COLONOSCOPY, DIAGNOSTIC (WRV U 3.26) Irritable bowel syndrome with constipation documented as of this encounter Visit Diagnoses Not on filedocumented in this encounter Care Teams Director Surgical Relationship Specialty Start Date End Date Daryn Garrett MD [facility] DR LILI WALKER [place] [address] PCP - General 04/10/24 documented as of this encounter
--- OUTSIDE RECORDS SUMMARY | 2024-06-07 13:29 | XMS_ITS | Encounter Summary ---
Author Organization Replaced By [facility] Address [facility] [place] [address] Care Team Providers Care Annealer Name Role Phone Daryn Garrett MD Primary Care Provider Encounter Details Date Type Department Care Team (Latest Contact Info) Description 06/04/2024 Travel Social History Tobacco Use Types Packs/Day [...] AM EST Office Visit Internal Medicine at [facility] [address] [place] [address] Daryn Garrett MD [facility] [address] LILI [place] [address] 10/02/2024 1:00 PM EDT Office [place] [phone] Juanpablo Hernandez MD [facility] [place] [address] 01/30/2025 1:30 PM EDT Laboratory Appointment [place] [facility] [place] [address] [place] [phone] 01/30/2025 3:[address] [place] [phone] Arturo Cordero MD [facility] [place] [address] 01/30/2025 4:15 PM EDT Office Visit Hematology [place] [address] Arturo Cordero MD [facility] [place] [address] Scheduled Procedures Name Priority Associated Diagnoses Date/Ti me EGD, UPPER GI ENDOSCOPY (WRV U 2.09) Irritable bowel syndrome with constipation COLONOSCOPY, DIAGNOSTIC (WRV U 3.26) Irritable bowel syndrome with constipation documented as of this encounter Visit Diagnoses Not on filedocumented in this encounter Care Teams Annealer Relationship Specialty Start Date End Date Daryn Garrett MD [facility] [address] L[place]I [place] [address] PCP - General 04/10/24 documented as of this encounter
--- OUTSIDE RECORDS SUMMARY | 2024-06-07 13:29 | XMS_ITS | Encounter Summary ---
Author Organization [facility] Address [facility] [place] [address] Care Team Providers Care Sergeant Of Officers Name Role Phone Daryn Garrett MD Primary Care Provider Encounter Details Date Type Department Care Team (Late st Contact Info) Description 04/15/2024 [place] [phone] Tita Lee MD [facility] [address] Social History Tobacco Use Types Packs/Day Years [...] encounter Miscellaneous Notes * Telephone Encounter - Tita Lee MD - 04/15/2024 11:43 PM EDT Images from the original note were not included. Telephone Triage Note Initial contact date: 04/15/2024 Initial contact time: 11:43 PM Referring provider: Tonia Mcrae APRN Patient location: [facility] ED Past medical history: ASCVD s/p PCI x4, T2DM, TITO, obesity, eft atrial enlargement, and possible ILD vs COPD. History: This is a 63 y/o female with the above-mentioned history who presents to ED for evaluation of chronic LLQ abdominal pain consistent with diverticulitis flare for which she will be discharged from theED with a course of oral abx and pain control. The patient was incidentally found to be in sinus bradycardia, now resolved. The provider is asking for guidance on further management. Pertinent diagnostic findings: Vitals: BP 155/84 HR 55 RR 18 SaO2 95% RA , afebrile Labs: Flat troponin Imaging: Assessment/Recommendations: This is is 63 y/o female with a history of ASCVD s/p PCI x4, T2DM, TITO, obesity, eft atrial enlargement, and possible ILD vs COPD who presents to the [facility] ED for diverticulitis flare. She is noted gi transient bradycardia. Otherwise, the workup is unremarkable. We discussed that asymptomatic sinus bradycardia is not a concern on its own and may be related to vagal response to pain which the pat ient is experiencing. The patient is on metoprolol succ 25 mg daily for post-[place] care which could beheld if HR is sustaining below 55. Otherwise, focusing on infection management and pain control is a priority. The above recommendations were based on my discussion with the outside hospital provider. I have not personally interviewed or examined this patient. I advised the provider to call the transfer center back with any changes in the patient condition. Tita Lee MD 04/15/2024 11:43 PM documented in this encounter Plan of Treatment Upcoming Encounters Date Type Department Care Team (Late st Contact Info) Description 06/28/2024 9:30 AM EST Office Visit Internal Medicine at [address] [phone] Daryn Garrett MD [facility] DR LILI WALKER - PRIMARY CARE [place], [place] [phone] 10/02/2024 1:00 PM EDT Office [place] [phone] Juanpablo Hernandez MD [facility] [address] 01/30/2025 1:30 PM EDT Laboratory Appointment Lab at [facility] Hematology Oncology [address] [place] [phone] 01/30/2025 3:[address] [place] [phone] Arturo Cordero MD [facility] HEMATOLOGY AND ONCOLOGY [place], [place] [phone] 01/30/2025 4:15 PM EDT Office Visit Hematology [place] [address] Arturo Cordero MD [facility] [place] [address] Scheduled Procedures Name Priority Associated Diagnoses Date/Ti me EGD, UPPER GI ENDOSCOPY (WRV U 2.09) Irritable bowel syndrome with constipation COLONOSCOPY, DIAGNOSTIC (WRV U 3.26) Irritable bowel syndrome with constipation documented as of this encounter Visit Diagnoses Not on filedocumented in this encounter Care Teams Sergeant Of Officers Relationship Specialty Start Date End Date Daryn Garrett MD [facility] [address] [place] [address] PCP - General 04/10/24 documented as of this encounter
--- OUTSIDE RECORDS SUMMARY | 2024-06-07 13:29 | XMS_ITS | Encounter Summary ---
[place] [address] Care Team Providers Care Asp Web Developer Name Role Phone Daryn Garrett MD Primary Care Provider [phone] Reason for Referral * Consultation (Urgent) - Authorized Specialty Diagnoses / Procedures Referred By Gonzalez kumari Referred To Contact Gastroenterology Diagnoses Chronic LLQ pain [employer] T[employer] CAR Tonia Mcrae, KATHIA [address] [place] [address] [facility] [address] [place] [address] Referral ID Status Reason Start Date Expiration Date Visits Requested Visits Authorized [id number] Authorized Consult, Test & Treat PCP Updated and/or Approved 04/16/2024 04/16/2025 6 6 Encounter Details Date Type Department Care Team (Late st Contact Info) Description 04/16/2024 Transcribe Orders eDH Incoming Referrals [phone] Tonia Mcrae, KATHIA [address] [place] [id number] Chronic LLQ pain Social History Tobacco Use Types Packs/Day [...] AM EST Office Visit Internal Medicine at [facility] [address] [place] [phone] Daryn Garrett MD [facility] DR LILI [address]O [place] [address] 10/02/2024 1:00 PM EDT Office Visit Ophthalmology at [place] [phone] Juanpablo Hernandez MD [facility] [address] 01/30/2025 1:30 PM EDT Laboratory Appointment Lab at [facility] [place] On[place] [address] [place], [place] [phone] 01/30/2025 3:[address] [place] [place] [address] Arturo Coredro MD [facility] DR HEMATOLOGY [place] [address] 01/30/2025 4:15 PM EDT Office Visit Hematology [place] [phone] Arturo Cordero MD [facility] DR HEMATOLOGY [place] [address] Scheduled Procedures Name Priority Associated Diagnoses Date/Ti me EGD, UPPER GI ENDOSCOPY (WRV U 2.09) Irritable bowel syndrome with constipation COLONOSCOPY, DIAGNOSTIC (WRV U 3.26) Irritable bowel syndrome with constipation Scheduled Referrals Name Type Priority Associated Diagnoses Order Schedule Referral to Gastroenterology Outpatient Referral Urgent Chronic LLQ pain Ordered: 04/16/2024 documented as of this encounter Visit Diagnoses Diagnosis Chronic LLQ pain Abdominal pain, left lower quadrant documented in this encounter Care Teams Asp Web Developer Relationship Specialty Start Date End Date Daryn Garrett MD [facility] [address] [place] [address] PCP - General 04/10/24 documented as of this encounter
--- OUTSIDE RECORDS SUMMARY | 2024-06-07 13:29 | XMS_ITS | Encounter Summary ---
[place] [address] Care Team Providers Care Retail Sales Professional Name Role Phone Daryn Garrett MD Primary Care Provider Encounter Details Date Type Department Care Team (Latest Contact Info) Description 05/01/2024 11:03 AM EDT - 05/01/2024 11:59 PM EDT Hospital Encounter Mammography/[place] [address] Rodney Padilla MD [address] [place] [address] [place] [address] Encounter for screening mammogram for breast cancer [...] Sig Dispensed Refills Start Date End Date nitroGLYcerin (Nitrostat) 0.[address] 1 tablet under the tongue See Admin Instructions. 30 tablet 5 04/17/2024 sucralfate (Carafate) 100 mg/mL Suspension Take 10 mLs by mouth 4 times daily. 3726 mL 3 04/09/2024 Miscellaneous Medical Supply Misc by [facility]Non-Drug; Combo Route) route. docusate sodium (Colace) 100 mg capsuleIndications:Ir ritable bowel syndrome, unspecified type Take 1 capsule by mouth daily. 90 capsule 3 03/20/2024 polyethylene glycoL (Miralax) 17 gram oral powder packetIndications:Irr itable bowel syndrome, unspecified type Take 17 g by mouth daily. 90 each 3 03/20/2024 albuteroL 90 mcg/actuation inhaler (HFA) Inhale 2 puffs into the lungs every 4 hours as needed for Wheezing. USE WITH SPACER 11/24/2023 amLODIPine (Norvasc) 5 mg tabletIndications:Ess ential hypertension Take 1 tablet by mouth daily. 90 tablet 3 02/20/2024 pantoprazole EC (Protonix) [address] tablet Take 1 tablet by mouth daily. 90 tablet 3 02/20/2024 losartan (Cozaar) 100 mg tablet Take 1 tablet by mouth daily. 90 tablet 3 02/20/2024 metFORMIN XR (Glucophage XR) 500 mg ER 24 hr tablet Take 2 tablets by mouth 2 times daily (with meals). 360 tablet 3 02/13/2024 metoprolol succinate XL (Toprol-XL) 25 mg ER 24 hr tablet Take 1 tablet by mouth daily. 90 tablet 3 02/13/2024 clopidogreL (Plavix) 75 mg tablet Take 1 tablet by mouth daily. 90 tablet 3 02/13/2024 simvastatin (Zocor) 10 mg tabletIndications:Mix ed hyperlipidemia Take 1 tablet by mouth daily. 90 tablet 3 02/13/2024 tretinoin (RETIN-A) 0.025 % CreamIndications:Phot oaging of [...] 11 10/24/2023 fluticasone propionate (Flonase) 50 mcg/actuation [place], Suspension SPRAY 1 SPRAY IN EACH NOSTRIL TWO TIMES A DAY 48 mL 3 09/28/2023 lamoTRIgine (LaMICtal) 150 mg tablet Take 150 mg by mouth Daily at Noon. 08/17/2023 Blood-Glucose Meter,Continuous (Dexcom G7 Drapery Hand) MiscIndications:Type 2 diabetes mellitus with hyperglycemia, without long-term current use of insulin 1 Device by [facility]Non-Drug; Combo Route) route continuous. 08/18/2023 Blood-Glucose Sensor (Dexcom G7 Sensor) DeviceIndications:Typ e 2 diabetes mellitus with hyperglycemia, without long-term current use of insulin 1 Device by [facility].(Non-Drug; Combo Route) route every 10 days. 3 each 11 08/18/2023 inhalational spacing device (Hesham Aerosol [place] Enhancer) SpacerIndications:Chr onic obstructive pulmonary disease, unspecified COPD type 1 each by [facility].(Non-Drug; Combo Route) route as needed. 1 each [...] Take 1 capsule by mouth nightly. 04/06/2022 busPIRone (Buspar) 30 mg Tablet Take 30 mg by mouth 2 times daily. 04/06/2022 FreeStyle Lite Meter Kit 04/20/2022 traZODone (Desyrel) 100 mg Tablet Take 1 tablet by mouth nightly. 90 tablet 3 06/26/2020 aspirin EC 81 mg Tablet, Delayed Release (E.C.) Take 81 mg by mouth daily. Mounjaro 5 mg/0.5 mL Pen InjectorIndications:t ype 2 diabetes mellitus Inject 5 mg subcutaneously once a week. Indications: type 2 diabetes mellitus 2 mL 11 03/20/2024 05/28/2024 dicyclomine (Bentyl) 10 mg capsule Take 10 mg by mouth 4 times daily (before meals and nightly). 05/27/2024 LORazepam (Ativan) 0.5 mg TabletIndications:anx iety Take 0.5 mg by mouth every 8 hours. Indications: anxious 04/04/2022 05/27/2024 documented as of this encounter Plan of Treatment Upcoming Encounters Date Type Department Care Team (Late st Contact Info) Description 06/28/2024 9:30 AM EST Office Visit Internal Medicine at [address] [phone] Daryn Garrett MD [facility] DR LILI WALKER [place] [address] 10/02/2024 1:00 PM EDT Office [place] [phone] Juanpablo Hernandez MD [facility] [place] [address] 01/30/2025 1:30 PM EDT Laboratory Appointment Lab at [facility] Hematology Oncology [address] [place] [phone] 01/30/2025 3:[address] [place] [address] Arturo Cordero MD [facility] HEMATOLOGY [place] [address] 01/30/2025 4:15 PM EDT Office Visit Hematology [place] [phone] Arturo Cordero MD [facility] HEMATOLOGY [place] [address] Scheduled Procedures Name Priority Associated Diagnoses Date/Ti me EGD, UPPER GI ENDOSCOPY (WRV U 2.09) Irritable bowel syndrome with constipation COLONOSCOPY, DIAGNOSTIC (WRV U 3.26) Irritable bowel syndrome with constipation documented as of this encounter Procedures Procedure Name Priority Date/Time Associated Diagnosis Comments MAMMO SCREENING CAD AND FEROZ BILATERAL Routine 05/01/2024 11:49 AM EDT Encounter for screening mammogram for breast cancer documented in this encounter Results * Mammo Screening Cad and Feroz Bilateral (05/01/2024 11:49 AM EDT) Anatomical Region [...] [facility] BIRADS CATEGORY 1: NEGATIVE [[id number]] Electronically signed by: ZEENAT FLORES MD [facility] at [address] [phone] Your breast imaging exam done on: ??05/01/24 [...] cancer documented in this encounter Care Teams Retail Sales Professional Relationship Specialty Start Date End Date Daryn Garrett MD [facility] DR LILI WALKER [place] [address] PCP - General 04/10/24 documented as of this encounter
--- OUTSIDE RECORDS SUMMARY | 2024-06-07 13:29 | XMS_ITS | Encounter Summary ---
[place] [address] Care Team Providers Care Food Counter Attendant Name Role Phone Daryn Garrett MD Primary Care Provider Reason for Referral * Consultation (Routine) - Authorized Specialty Diagnoses / Procedures Referred By Gonzlaez kumari Referred To Contact Cardiology Diagnoses Bradycardia Bradycardia likely vasovagal, no urgent f/u recommended although pt should re-establish care with cardiology Tonia Mcrae, KATHIA [address] [place] [address] [facility] [address] [place] [phone] Referral ID Status Reason Start Date Expiration Date Visits Requested Visits Authorized [id number] Authorized Consult, Test & Treat PCP Updated and/or Approved 04/16/2024 04/16/2025 6 6 Encounter Details Date Type Department Care Team (Late st Contact Info) Description 05/10/2024 Transcribe Orders eDH Incoming Referrals [phone] Tonia Mcrae, KATHIA [address] [place], [place] [phone] Bradycardia Social History Tobacco Use Types Packs/Day Years [...] at [facility] [address] [place] [phone] Daryn Garrett MD [facility] [place] [address] 10/02/2024 1:00 PM EDT Office Visit Ophthalmology at [place] [phone] Juanpablo Hernandez MD [facility] [place] [address] 01/30/2025 1:30 PM EDT Laboratory Appointment Lab [place] [facility] [place] [address] [place] [phone] 01/30/2025 3:[address] Scan at [place] [phone] Arturo Cordero MD [facility] DR [place] [address] 01/30/2025 4:15 PM EDT Office Visit [place] [phone] Arturo Cordero MD [facility] DR [place] [address] Scheduled Procedures Name Priority Associated Diagnoses Date/Ti me EGD, UPPER GI ENDOSCOPY (WRV U 2.09) Irritable bowel syndrome with constipation COLONOSCOPY, DIAGNOSTIC (WRV U 3.26) Irritable bowel syndrome with constipation Scheduled Referrals Name Type Priority Associated Diagnoses Order Schedule Referral to Cardiology Outpatient Referral Urgent Bradycardia Ordered: 05/10/2024 documented as of this encounter Visit Diagnoses Diagnosis Bradycardia Other specified cardiac dysrhythmias documented in this encounter Care Teams Food Counter Attendant Relationship Specialty Start Date End Date Daryn Garrett MD [facility] DR LILI [place]EV[place] [address] PCP - General 04/10/24 documented as of this encounter
--- OUTSIDE RECORDS SUMMARY | 2024-06-07 13:29 | XMS_ITS | Encounter Summary ---
[place] [address] Care Team Providers Care Personal Insurance Advisor Name Role Phone Rodney Padilla MD Primary Care Provider Reason for Referral * Diagnostic Test (Routine) - New Request Specialty Diagnoses / Procedures Referred By Gonzalez kumari Referred To Contact Radiology Diagnoses Irritable bowel syndrome, unspecified type Procedures NM Gastric Emptying Scan Rodney Padilla MD [address] [place] [address] [place] [address] Referral ID Status Reason Start Date Expiration Date Visits Requested Visits Authorized [id number] New Request Specialty Service Requested 03/20/2024 09/17/2025 1 1 Reason for Visit * Reason Comments Other Stomach and bowel tr ouble- not improving and ongoing, been to ER recently (flare up) Encounter Details Date Type Department Care Team (Late st Contact Info) Description 03/20/2024 3:30 PM EDT Office Visit Family Medicine at [facility] [address] [place] [phone] Rodney Padilla MD [address] [place] [address] Irritable bowel syndrome, unspecified type (Primary Dx); [...] TOPICALLY ONCE DAILY 100 each 3 fluticasone kdmkgdo-amcczumlzwpk-bisyflwkgt (Trelegy Ellipta) 200-62.5-25 mcg Inhale 1 puff into the lungs daily. Rinse mouth after use 1 each 11 fluticasone propionate (Flonase) 50 mcg/actuation [place], Suspension SPRAY 1 SPRAY IN EACH NOSTRIL TWO TIMES A DAY 48 mL 3 lamoTRIgine (LaMICtal) 150 mg tablet Take 150 mg by mouth Daily at Noon. Blood-Glucose Meter,Continuous (Dexcom G7 General Scrap Worker) Misc 1 Device by [facility].(Non- Drug; Combo Route) route continuous. Blood-Glucose Sensor (Dexcom G7 Sensor) Device 1 Device by [facility].(Non-Drug; Combo Route) route every10 days. 3 each 11 inhalational spacing device (Hesham Aerosol [place] Enhancer) Spacer 1 each by [facility].(Non-Drug; Combo Route) route as needed. 1 each [...] mouth daily. Miscellaneous Medical Supply Misc by [facility].(Non-Drug; Combo Route) route. Lantus Solostar U-100 Insulin [...] patient/family/caregiver Referring and communicating with other health intensive care ambulance paramedic Documenting clinical information in the electronic or other health record Independently interpreting results Care coordination documented in this encounter Plan of Treatment Upcoming Encounters Date Type Department Care Team (Late st Contact Info) Description 06/28/2024 9:30 AM EST Office Visit Internal Medicine at [address] [phone] Daryn Garrett MD [facility] [address] LILI [place] [address] 10/02/2024 1:00 PM EDT Office [place] [phone] Juanpablo Hernandez MD [facility] [place] [address] 01/30/2025 1:30 PM EDT Laboratory Appointment Lab at [facility] [place] [address] [place] [phone] 01/30/2025 3:[address] [place] [phone] Arturo Cordero MD [facility] DR [place] [address] 01/30/2025 4:15 PM EDT Office Visit Hematology [place] [phone] Arturo Cordero MD [facility] [address] [place] [address] Scheduled Orders Name Type Priority Associated Diagnoses Orde r Schedule NM Gastric Emptying Scan Imaging Routine Irritable bowel syndrome, unspecified type Expected: 03/20/2024, Expires: 03/20/2025 Scheduled Procedures Name Priority Associated Diagnoses Date/Ti me EGD, UPPER GI ENDOSCOPY (WRV U 2.09) Irritable bowel syndrome with constipation COLONOSCOPY, DIAGNOSTIC (WRV U 3.26) Irritable bowel syndrome with constipation documented as of this encounter Visit Diagnoses Diagnosis Irritable bowel syndrome, unspecified type- Primary Type 2 diabetes mellitus without long-term current use of insulin documented in this encounter Care Teams Personal Insurance Advisor Relationship Specialty Start Date End Date Rodney Padilla MD PCP - General 07/18/22 04/09/24 documented as of this encounter
--- OUTSIDE RECORDS SUMMARY | 2024-06-07 13:29 | XMS_ITS | Encounter Summary ---
Author Organization [facility] Address [facility] [place] [address] Care Team Providers Care Brake Repair Mechanic Name Role Phone Rodney Padilla MD [...] AM EST Office Visit Internal Medicine at [facility] [address] [place] [address] Daryn Garrett MD [facility] DR LILI WALKER - [place] [address] 10/02/2024 1:00 PM EDT Office [place] [phone] Juanpablo Hernandez MD [facility] [place] [address] 01/30/2025 1:30 PM EDT Laboratory Appointment Lab [place] [facility] [place] [address] [place] [phone] 01/30/2025 3:[address] [place] [phone] Arturo Cordero MD [facility] HEMATOLOGY [place] [address] 01/30/2025 4:15 PM EDT Office Visit Hematology [place] [address] Arturo Cordero MD [facility] DR HEMATOLOGY [place] [address] Scheduled Procedures Name Priority Associated Diagnoses Date/Ti me EGD, UPPER GI ENDOSCOPY (WRV U 2.09) Irritable bowel syndrome with constipation COLONOSCOPY, DIAGNOSTIC (WRV U 3.26) Irritable bowel syndrome with constipation documented as of this encounter Visit Diagnoses Not on filedocumented in this encounter Care Teams Brake Repair Mechanic Relationship Specialty Start Date End Date Rodney Padilla MD PCP - General 07/18/22 04/09/24 documented as of this encounter
--- OUTSIDE RECORDS SUMMARY | 2024-06-07 13:29 | XMS_ITS | Encounter Summary ---
Author Organization [facility] [place] [address] Care Team Providers Care Email Designer Name Role Phone Rodney Padilla MD Primary Care Provider [phone] Encounter Details Date Type Department Care Team (Late st Contact Info) Description 03/21/2024 Telephone Family Medicine at [address] [place] [phone] [place] Social History Tobacco Use Types Packs/Day Years [...] AM EST Office Visit Internal Medicine at [address] [phone] Daryn Garrett MD [facility] [address] LILI [place] [address] 10/02/2024 1:00 PM EDT Office [place] [address] Juanpablo eHrnandez MD [facility] [address] 01/30/2025 1:30 PM EDT Laboratory Appointment Lab at [facility] [place]ematology Oncology [address] [place] [phone] 01/30/2025 3:[address] [place] [address] Arturo Cordero MD [facility] DR [place] [address] 01/30/2025 4:15 PM EDT Office Visit Hematology [place] [address] Arturo Cordero MD [facility] DR [place] [address] Scheduled Procedures Name Priority Associated Diagnoses Date/Ti me EGD, UPPER GI ENDOSCOPY (WRV U 2.09) Irritable bowel syndrome with constipation COLONOSCOPY, DIAGNOSTIC (WRV U 3.26) Irritable bowel syndrome with constipation documented as of this encounter Visit Diagnoses Not on filedocumented in this encounter Care Teams Email Designer Relationship Specialty Start Date End Date Rodney Padilla MD PCP - General 07/18/22 04/09/24 documented as of this encounter
--- OUTSIDE RECORDS SUMMARY | 2024-06-07 13:30 | XMS_ITS | Encounter Summary ---
Author Organization [facility] Address [facility] [place] [address] Care Team Providers Care Breakfast Bar Attendant Name Role Phone Rodney Padilla MD Primary Care Provider Reason for Visit * Reason Comments Follow-up Abdominal discomfort Encounter Details Date Type Department Care Team (Latest Contact Info) Description 09/19/2023 10:30 AM EDT Office Visit Family Medicine at [facility] [address] [place] [address] Rodney Padilla MD [address] [place] [address] [place] [address] Severe obesity; Chronic obstructive pulmonary disease, unspecified COPD type; Bipolar affective disorder in remission; Adrenal mass; Diabetic polyneuropathy associated with type 2 diabetes mellitus; 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 (Patient not taking: Reported on 08/29/2023) Blood-Glucose Sensor (Dexcom G7 Sensor) Device 1 Device by [facility].(Non-Drug; Combo Route) route every10 days. (Patient not [...] each 3 inhalational spacing device (Hesham Aerosol [place] Enhancer) Spacer 1 each by Misc.(Non-Drug; Combo [...] tablet 5 fluticasone propionate (Flonase) 50 mcg/actuation [place], [...] patient/family/caregiver Referring and communicating with other health vehicle care specialist Documenting clinical information in the electronic or other health record Independently interpreting results Care coordination documented in this encounter Plan of Treatment Upcoming Encounters Date Type Department Care Team (Late st Contact Info) Description 06/28/2024 9:30 AM EST Office Visit Internal Medicine at [facility] [address] [place] [phone] Daryn Garrett MD [facility] DR LILI [place]ER [place] [address] 10/02/2024 1:00 PM EDT Office [place] [phone] Juanpablo Hernandez MD [facility] [place] [address] 01/30/2025 1:30 PM EDT Laboratory Appointment Lab at [facility] Hematology Oncology [address] [place], [place] [phone] 01/30/2025 3:[address] Scan at [place] [phone] Arturo Cordero MD [facility] DR [place] [address] 01/30/2025 4:15 PM EDT Office Visit Hematology [place] [phone] Arturo Cordero MD [facility] DR [place]Y [place] [address] Scheduled Procedures Name Priority Associated Diagnoses Date/Ti me EGD, UPPER GI ENDOSCOPY (WRV U 2.09) Irritable bowel syndrome with constipation COLONOSCOPY, DIAGNOSTIC (WRV U 3.26) Irritable bowel syndrome with constipation documented as of this encounter Results * (ABNORMAL) Hemoglobin A1c (09/19/2023 11:24 AM EDT) Hemoglobin A1c 9.2(H) 4.3 - 5.6 % [facility] Comment: Reference Range: 4.3 [...] Mellitus, Diabetes Care 2013; 36: Suppl. 1, S66-40 Estimated Average Glucose 217 mg/dL [facility] Blood 09/19/2023 11:2 4 AM EDT 09/19/2023 1:14 PM EDT Narrative Resulting Agency Comment Spec In Lab Rodney Padilla MD CHEMISTRY ORDERABLE S Performing Organization Address City/State/[facility] Co de Phone Number [facility] [place] [address] documented in this encounter Visit Diagnoses Diagnosis Severe obesity Morbid obesity Chronic obstructive pulmonary disease, unspecified COPD type Bipolar affective disorder in remission Adrenal mass Unspecified disorder of adrenal glands Diabetic polyneuropathy associated with type 2 diabetes mellitus 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
--- OUTSIDE RECORDS SUMMARY | 2024-06-07 13:30 | XMS_ITS | Encounter Summary ---
Author Organization [facility] [place] [address] Care Team Providers Care Metal Mixer Name Role Phone Rodney Padilla MD Primary Care Provider Reason for Referral * Diagnostic Test (Routine) - New Request Specialty Diagnoses / Procedures Referred By Contac t Referred To Contact Radiology Diagnoses Malignant melanoma of conjunctiva, left Procedures CT Neck Soft Tissue w Contrast (Generic) Arturo Cordero MD [facility] DR HEMATOLOGY [place] [address] [facility] [place] [address] Referral ID Status Reason Start Date Expiration Date Visits Requested Visits Authorized [id number] New Request Specialty Service Requested 02/02/2024 08/04/2025 1 1 * Diagnostic Test (Routine) - New Request Specialty Diagnoses / Procedures Referred By Contac t Referred To Contact Radiology Diagnoses Lung nodule Renal cell cancer, left Procedures CT Chest Abdomen Pelvis w Contrast (Generic) Arturo Cordero MD [facility] DR HEMATOLOGY [place] [address] [facility] [place] [address] Referral ID Status Reason Start Date Expiration Date Visits Requested Visits Authorized [id number] New Request Specialty Service Requested 02/02/2024 08/04/2025 1 1 Reason for Visit * Reason Comments Follow-up Encounter Details Date Type Department Care Team (Cornelius st Contact Info) Description 02/01/2024 11:15 AM EDT Office Visit Hematology [place] [address] Arturo Cordero MD [facility] DR HEMATOLOGY [place] [address] Malika Luna APRN [facility] [place] [address] Malignant melanoma of conjunctiva, left (Primary Dx); [...] from the original note were not included. [facility] NOTE REFERING PHYSICIAN: Dr. Juanpablo [...] management - fall 2018: saw a new load out person and was referred to Dr. 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 Medina - 03/31/2020: saw her load out person Dr. Hernandez and was noted to have [...] Asthma uses inhalerswith good effect Atherosclerosis of [place] coronary artery of [place] heart with angina pectoris 10/09/2007 History of [...] 3.47) performed by Juanpablo Hernandez MD at [facility] OSC PRO EXCIS CORNEA LESN Left 05/14/2020 EXCISION OF LESION, CORNEA, EXCEPT PTERYGIUM (WRVU 7.5) performed by Juanpablo Hernandez MD at [facility] OSC PRO LAP, PARTIAL NEPHRECTOMY Left 06/28/2019 LAPAROSCOPY, PARTIAL NEPHRECTOMY, ROBOTIC ASSIST (WRVU 27.41) performed by Avila Medina MD at [facility] MAIN OR PRO PLACE AMNIOTIC MEMBRANE OCULAR SURFACE;SINGLE LAYER SUTURED Left 05/14/2020 PLACEMENT OF AMNIOTIC MEMBRANE ON THE OCULAR SURFACE,SINGLE LAYER,SUTURED (WRVU 2.5) performed by Juanpablo Hernandez MD at [facility] OSC MEDS: Alcohol Swabs, (Blood-Glucose Meter,Continuous), Blood-Glucose Sensor, LORazepam, albuteroL, amLODIPine, aspirin EC, blood sugar diagnostic strips, blood-glucose meter, busPIRone, clopidogreL, fluticasone gikmkcg-tdiludfltnjh-bwknxpgymO, fluticasone propionate, inhalational spacing device, insulin glargine, [...] with significant other 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, 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 [...] AM EST Office Visit Internal Medicine at [address] [phone] Daryn Garrett MD [facility] DR LILI WAKLER - [place] [address] 10/02/2024 1:00 PM EDT Office [place] [address] Juanpablo Hernandez MD [facility] [place] [address] 01/30/2025 1:30 PM EDT Laboratory Appointment Lab at [facility] Hematology Oncology [address] [place] [phone] 01/30/2025 3:[address] [place] [phone] Arturo Cordero MD [facility] HEMATOLOGY [place] [address] 01/30/2025 4:15 PM EDT Office Visit Hematology [place] [phone] Arturo Cordero MD [facility] HEMATOLOGY [place] [address] Scheduled Orders Name Type Priority Associated Diagnoses [...] conjunctiva, left Expected: 01/30/2025 (Approximate), Expires: 08/04/2025 Scheduled Procedures Name Priority Associated Diagnoses Date/Ti me EGD, UPPER GI ENDOSCOPY (WRV U 2.09) Irritable bowel syndrome with constipation COLONOSCOPY, DIAGNOSTIC (WRV U 3.26) Irritable bowel syndrome with constipation documented as of this encounter Visit Diagnoses Diagnosis Malignant melanoma of conjunctiva, left- Primary Lung nodule Solitary pulmonary nodule Renal cell cancer, left documented in this encounter Care Teams Metal Mixer Relationship Specialty Start Date End Date Rodney Padilla MD PCP - General 07/18/22 04/09/24 documented as of this encounter
--- OUTSIDE RECORDS SUMMARY | 2024-06-07 13:30 | XMS_ITS | Encounter Summary ---
Author Organization [facility] Address [facility] [place] [address] Care Team Providers Care Oracle Database Architect Name Role Phone Rodney Padilla MD [...] AM EST Office Visit Internal Medicine at [facility] [address] [place] [address] Daryn Garrett MD [facility] DR LILI WALKER [place] [address] 10/02/2024 1:00 PM EDT Office [place] [phone] Juanpablo Hernandez MD [facility] [place] [address] 01/30/2025 1:30 PM EDT Laboratory Appointment Lab at [facility] Hematology Oncology [address] [place] [phone] 01/30/2025 3:[address] [place] [place] [phone] Arturo Cordero MD [facility] HEMATOLOGY [place] [address] 01/30/2025 4:15 PM EDT Office Visit [place]ology [place] [address] Arturo Cordero MD [facility] DR HEMATOLOGY [place] [address] Scheduled Procedures Name Priority Associated Diagnoses Date/Ti me EGD, UPPER GI ENDOSCOPY (WRV U 2.09) Irritable bowel syndrome with constipation COLONOSCOPY, DIAGNOSTIC (WRV U 3.26) Irritable bowel syndrome with constipation documented as of this encounter Visit Diagnoses Not on filedocumented in this encounter Care Teams Oracle Database Architect Relationship Specialty Start Date End Date Rodney Padilla MD PCP - General 07/18/22 04/09/24 documented as of this encounter
--- OUTSIDE RECORDS SUMMARY | 2024-06-07 13:30 | XMS_ITS | Encounter Summary ---
Author Organization [facility] Address [facility] [place] [address] Care Team Providers Care Preservationist Name Role Phone Rodney Padilla MD Primary [...] AM EST Office Visit Internal Medicine at [facility] [address] [place] [address] Daryn Garrett MD [facility] [address] LIL[place] [address] 10/02/2024 1:00 PM EDT Office [place] [phone] Juanpablo Hernandez MD [facility] [place] [address] 01/30/2025 1:30 PM EDT Laboratory Appointment Lab at [facility] Hematology Oncology [address] [place] [phone] 01/30/2025 3:[address] [place] [phone] Arturo Cordero MD [facility] [place] [address] 01/30/2025 4:15 PM EDT Office Visit Hematology [place] [phone] Arturo Cordero MD [facility] [place] [address] Scheduled Procedures Name Priority Associated Diagnoses Date/Ti me EGD, UPPER GI ENDOSCOPY (WRV U 2.09) Irritable bowel syndrome with constipation COLONOSCOPY, DIAGNOSTIC (WRV U 3.26) Irritable bowel syndrome with constipation documented as of this encounter Visit Diagnoses Not on filedocumented in this encounter Care Teams Preservationist Relationship Specialty Start Date End Date Rodney Padilla MD PCP - General 07/18/22 04/09/24 documented as of this encounter
--- OUTSIDE RECORDS SUMMARY | 2024-06-07 13:30 | XMS_ITS | Encounter Summary ---
Author Organization [facility] [place] [address] Care Team Providers Care Industrial Arts Teacher Name Role Phone Rodney Padilla MD Primary Care Provider Reason for Visit * Reason Comments Medication Refill Encounter Details Date Type Department Care Team (Late st Contact Info) Description 11/01/2023 Refill Family Medicine at [facility] [address] [place] [address] Rodney Padilla MD [address] [place] [address] [place] [address] Type 2 diabetes mellitus without long-term current [...] AM EST Office Visit Internal Medicine at [address] [phone] Daryn Garrett MD [facility] DR LILI [place] [address] 10/02/2024 1:00 PM EDT Office [place] [phone] Juanpablo Hernandez MD [facility] [place] [address] 01/30/2025 1:30 PM EDT Laboratory Appointment Lab at [facility] [place] [address] [place] [phone] 01/30/2025 3:[address] [place] [phone] Arturo Cordero MD [facility] DR HEMATOLOGY [place] [address] 01/30/2025 4:15 PM EDT Office Visit Hematology [place] [address] Arturo Cordero MD [facility] DR HEMATOLOGY [place] [address] Scheduled Procedures Name Priority Associated Diagnoses Date/Ti me EGD, UPPER GI ENDOSCOPY (WRV U 2.09) Irritable bowel syndrome with constipation COLONOSCOPY, DIAGNOSTIC (WRV U 3.26) Irritable bowel syndrome with constipation documented as of this encounter Visit Diagnoses Diagnosis Type 2 diabetes mellitus without long-term current use of insulin documented in this encounter Care Teams Industrial Arts Teacher Relationship Specialty Start Date End Date Rodney Padilla MD PCP - General 07/18/22 04/09/24 documented as of this encounter
--- OUTSIDE RECORDS SUMMARY | 2024-06-07 13:30 | XMS_ITS | Encounter Summary ---
Author Organization [facility] Address [facility] [place] [address] Care Team Providers Care Sandfill Operator Surface Name Role Phone Rodney Padilla MD Primary [...] AM EST Office Visit Internal Medicine at [facility] [address] [place] [address] Daryn Garrett MD [facility] [place]I [place] [address] 10/02/2024 1:00 PM EDT Office [place] [phone] Juanpablo Hernandez MD [facility] [place] [address] 01/30/2025 1:30 PM EDT Laboratory Appointment Lab at [place] Hematology Oncology [address] [place] [phone] 01/30/2025 3:[address] [place] [phone] Arturo Cordero MD [facility] [place] [address] 01/30/2025 4:15 PM EDT Office Visit Hematology [place] [address] Arturo Cordero MD [facility] [place] [address] Scheduled Procedures Name Priority Associated Diagnoses Date/Ti me EGD, UPPER GI ENDOSCOPY (WRV U 2.09) Irritable bowel syndrome with constipation COLONOSCOPY, DIAGNOSTIC (WRV U 3.26) Irritable bowel syndrome with constipation documented as of this encounter Visit Diagnoses Not on filedocumented in this encounter Care Teams Sandfill Operator Surface Relationship Specialty Start Date End Date Rodney Padilla MD PCP - General 07/18/22 04/09/24 documented as of this encounter
--- OUTSIDE RECORDS SUMMARY | 2024-06-07 13:30 | XMS_ITS | Encounter Summary ---
Author Organization [facility] [place] [address] Care Team Providers Care Vulcanizing Machine Operator Name Role Phone Rodney Padilla MD Primary Care Provider [phone] Encounter Details Date Type Department Care Team (Latest Contact Info) Description 09/19/2023 11:20 AM EDT Laboratory Appointment Lab at [facility] [address] [place] [address] Type 2 diabetes mellitus without complication, with [...] EST Office Visit Internal Medicine at [address] [phone] Daryn Garrett MD [facility] DR LILI [place] [address] 10/02/2024 1:00 PM EDT Office [place] [phone] Juanpablo Hernandez MD [facility] [place] [address] 01/30/2025 1:30 PM EDT Laboratory Appointment Lab at [facility] Hematology Oncology [address] [place] [phone] 01/30/2025 3:[address] [place] [address] Arturo Cordero MD [facility] [place] [address] 01/30/2025 4:15 PM EDT Office Visit Hematology [place] [address] Arturo Cordero MD [facility] DR [place] [address] Scheduled Procedures Name Priority Associated Diagnoses Date/Ti [...] Hemoglobin A1c 9.2(H) 4.3 - 5.6 % [facility] Comment: Reference Range: 4.3 - 5.6% [...] Mellitus, Diabetes Care 2013; 36: Suppl. 1, J37-28 Estimated Average Glucose 217 mg/dL [facility] Blood 09/19/2023 11:2 4 AM EDT 09/19/2023 1:14 PM EDT Narrative Resulting Agency Comment Spec In Lab Rodney Padilla MD CHEMISTRY ORDERABLE S [facility] [place] [address] documented in this encounter Visit Diagnoses Diagnosis Type 2 diabetes mellitus without complication, with long-term current use of insulin documented in this encounter Care Teams Vulcanizing Machine Operator Relationship Specialty Start Date End Date Rodney Padilla MD PCP - General 07/18/22 04/09/24 documented as of this encounter
--- OUTSIDE RECORDS SUMMARY | 2024-06-07 13:30 | XMS_ITS | Encounter Summary ---
Author Organization [place] [address] Care Team Providers Care Optometric Coordinator Name Role Phone Rodney Padilla MD Primary Care Provider Encounter Details Date Type Department Care Team (Latest Contact Info) Description 02/01/2024 8:12 AM EDT - 02/01/2024 11:59 PM EDT Hospital Encounter Hematology [place] [address] Malignant melanoma of conjunctiva, left Discharge Disposition: [...] 11 10/24/2023 fluticasone propionate (Flonase) 50 mcg/actuation [place], Suspension SPRAY 1 SPRAY IN EACH NOSTRIL TWO TIMES A DAY 48 mL 3 09/28/2023 lamoTRIgine (LaMICtal) 150 mg tablet Take 150 mg by mouth Daily at Noon. 08/17/2023 Blood-Glucose Meter,Continuous (Dexcom G7 [employer] Extension Specialist) MiscIndications:Type 2 diabetes mellitus with hyperglycemia, without long-term current use of insulin 1 Device by [facility]Non-Drug; Combo Route) route continuous. 08/18/2023 Blood-Glucose Sensor (Dexcom G7 Sensor) DeviceIndications:Typ e 2 diabetes mellitus with hyperglycemia, without long-term current use of insulin 1 Device by [facility].(Non-Drug; Combo Route) route every 10 days. 3 each 11 08/18/2023 inhalational spacing device (Hesham Aerosol [place] Enhancer) SpacerIndications:Chr onic obstructive pulmonary disease, unspecified COPD type 1 each by [facility].(Non-Drug; Combo Route) route as needed. 1 each [...] WITH MEALS 360 tablet 3 02/20/2023 02/10/2024 LORazepam (Ativan) 0.5 mg TabletIndications:anx iety Take 0.5 mg by mouth every 8 hours. Indications: anxious 04/04/2022 05/27/2024 albuteroL (Proventil, Ventolin) (2.5 mg/3 mL) (0.083 %) Solution for Nebulization Take 3 mLs by nebulization every 4 hours as needed for Wheezing. 90 mL 1 04/12/2022 02/27/2024 documented as of this encounter Plan of Treatment Upcoming Encounters Date Type Department Care Team (Late st Contact Info) Description 06/28/2024 9:30 AM EST Office Visit Internal Medicine at [place] [address] [place] [phone] Daryn Garrett MD [facility] DR LILI [place] [address] 10/02/2024 1:00 PM EDT Office Visit [place] [phone] Juanpablo Hernandez MD [facility] [place] [address] 01/30/2025 1:30 PM EDT Laboratory Appointment Lab at [facility] Hematology Oncology [address] [place] [phone] 01/30/2025 3:[address] [place] [address] Arturo Cordero MD [facility] [place] [address] 01/30/2025 4:15 PM EDT Office Visit Hematology [place] [phone] Arturo Cordero MD [facility] [place] [address] Scheduled Procedures Name Priority Associated Diagnoses Date/Ti [...] 8:19 AM EDT) Neutrophil % 65.9 % [facility] Neutrophil Absolute 5.25 1.70 - 6.10 x10(3)/[facility] Lymph % 24.4 % [facility] Lymphocytes Abs 1.9 0.9 - 3.2 x10(3)/[facility] Monocyte % 7.5 % [facility] Monocyte Abs 0.6 0.3 - 0.9 x10(3)/[facility] Eos % 1.3 % [facility] Eosinophils Abs 0.1 0.0 - 0.4 x10(3)/[facility] Basophil % 0.6 % [facility] Baso Absolute 0.0 0.0 - 0.1 x10(3)/[facility] Immature Gran % 0.30 % [facility] Comment: Immature granulocytes(IG's)percentage and absolute count will include metamyelocytes, myelocytes, and promyelocytes. Blood smears from CBCs yielding IG's will be scanned manually for concordance. If this scan disagrees with the automated IG or if promyelocytes are noted, a manual differential will be performed. Immature Gran Absolute 0.02 0.00 - 0.04 x10(3)/[facility] Blood 02/01/2024 8:19 AM EDT 02/01/2024 8:39 AM EDT Narrative Resulting Agency Comment Spec In Lab Tee Lara MD HEMATOLOGY ORD ERABLES [facility] [place] [address] * (ABNORMAL) Hemogram (02/01/2024 8:19 AM EDT) White Blood Cell 8.0 4.0 - 9.5 x10(3)/[facility] Red Blood Cell 4.47 4.00 - 5.21 x10(6)/[facility] Hemoglobin 13.1 11.7 - 15.5 g/dL [facility] Hematocrit 39.4 35.7 - 45.8 % [facility] Mean Cell Volume 88.1 82.6 - 94.4 fL [facility] Mean Cell Hemoglobin 29.3 27.1 - 32.0 pg [facility] Mean Cell Hemoglobin Concentration 33.2 31.7 - 35.0 g/dL [facility] Platelet 371(H) 145 - 357 x10(3)/[facility] RDW Standard Deviation 45.4 37.0 - [address] [facility] RDW coefficient of variation 14.3(H) 11.5 - 14.1 % [facility] Mean Platelet Volume 9.4 7.6 - 12.9 [facility] NRBC% auto 0.0 % [facility] NRBC Absolute 0.000 0.000 - 0.000 x10(3)/[facility] Blood 02/01/2024 8:19 AM EDT 02/01/2024 8:39 AM EDT Narrative Resulting Agency Comment Spec In Lab Tee Lara MD HEMATOLOGY ORD ERABLES [facility] [address] * Comprehensive metabolic panel (non-fasting) (02/01/2024 8:19 [...] Cordero MD CHEMISTRY ORDERABLES Performing Organization Address City/[facility]/ZIP Co de Phone Number [facility] [place] [address] * Lactate Dehydrogenase (02/01/2024 8:19 AM EDT) Lactate Dehydrogenase 195 110 - 220 unit/L [facility] Blood 02/01/2024 8:19 AM EDT 02/01/2024 8:39 AM EDT Narrative Resulting Agency Comment Spec In Lab Arturo Cordero MD CHEMISTRY ORDERABLES Performing Organization Address City/[facility]/ZIP Co de Phone Number [facility] [place] [address] documented in this encounter Visit Diagnoses Diagnosis Malignant melanoma of conjunctiva, left documented in this encounter Care Teams Optometric Coordinator Relationship Specialty Start Date End Date Rodney Padilla MD PCP - General 07/18/22 04/09/24 documented as of this encounter
--- OUTSIDE RECORDS SUMMARY | 2024-06-07 13:30 | XMS_ITS | Encounter Summary ---
Author Organization [facility] [place] [address] Care Team Providers Care Promotions Assistant Name Role Phone Rodney Padilla MD Primary Care Provider Reason for Visit * Reason Onset Date Comments Medication Refill 02/18/2024 Encounter Details Date Type Department Care Team (Late st Contact Info) Description 02/18/2024 Refill Family Medicine at [facility] [address] [place] [address] Rodney Padilla MD [address] [place] [address] [facility] [place] [address] Essential hypertension Social History Tobacco Use [...] encounter Miscellaneous Notes * Telephone Encounter - DelvinBella alexander CMA - 02/20/2024 3:57 PM EDT Prescription [...] AM EST Office Visit Internal Medicine at [address] [phone] Daryn Garrett MD [facility] DR LILI [place] [address] 10/02/2024 1:00 PM EDT Office [place] [phone] Juanpablo Hernandez MD [facility] [place] [address] 01/30/2025 1:30 PM EDT Laboratory Appointment Lab at [facility] Hematology Oncology [address] [place] [phone] 01/30/2025 3:[address] [place] [place] [address] Arturo Cordero MD [facility] DR [place] [address] 01/30/2025 4:15 PM EDT Office Visit Hematology [place] [address] Arturo Cordero MD [facility] DR [place] [address] Scheduled Procedures Name Priority Associated Diagnoses Date/Ti me EGD, UPPER GI ENDOSCOPY (WRV U 2.09) Irritable bowel syndrome with constipation COLONOSCOPY, DIAGNOSTIC (WRV U 3.26) Irritable bowel syndrome with constipation documented as of this encounter Visit Diagnoses Diagnosis Essential hypertension Unspecified essential hypertension documented in this encounter Care Teams Promotions Assistant Relationship Specialty Start Date End Date Rodney Padilla MD PCP - General 07/18/22 04/09/24 documented as of this encounter
--- OUTSIDE RECORDS SUMMARY | 2024-06-07 13:30 | XMS_ITS | Encounter Summary ---
Author Organization [facility] Address [facility] [place] [address] Care Team Providers Care Narcotics And/Or Vice Detective Name Role Phone Rodney Padilla MD Primary [...] AM EST Office Visit Internal Medicine at [facility] [address] [place] [address] Daryn Garrett MD [facility] DR LILI WALKER - [place] [address] 10/02/2024 1:00 PM EDT Office [place] [phone] Juanpablo Hernandez MD [facility] [place] [address] 01/30/2025 1:30 PM EDT Laboratory Appointment Lab [place] [facility] [place] [address] [place] [phone] 01/30/2025 3:[address] [place] [phone] Arturo Cordreo MD [facility] HEMATOLOGY [place] [address] 01/30/2025 4:15 PM EDT Office Visit Hematology [place] [address] Arturo Cordero MD [facility] DR HEMATOLOGY [place] [address] Scheduled Procedures Name Priority Associated Diagnoses Date/Ti me EGD, UPPER GI ENDOSCOPY (WRV U 2.09) Irritable bowel syndrome with constipation COLONOSCOPY, DIAGNOSTIC (WRV U 3.26) Irritable bowel syndrome with constipation documented as of this encounter Visit Diagnoses Not on filedocumented in this encounter Care Teams Narcotics And/Or Vice Detective Relationship Specialty Start Date End Date Rodney Padilla MD PCP - General 07/18/22 04/09/24 documented as of this encounter
--- OUTSIDE RECORDS SUMMARY | 2024-06-07 13:30 | XMS_ITS | Encounter Summary ---
Author Organization [facility] [place] [address] Care Team Providers Care Director Shopper Marketing Name Role Phone Rodney Padilla MD Primary Care Provider Encounter Details Date Type Department Care Team (Late st Contact Info) Description 02/28/2024 Notes Only Sleep Center at [facility] [address] [place] [address] Barbra Martínez C, RT Social History Tobacco [...] AM EST Office Visit Internal Medicine at [facility] [address] [place] [address] Daryn Garrett MD [facility] DR LILI [place] [address] 10/02/2024 1:00 PM EDT Office [place] [address] Juanpablo Hernandez MD [facility] [place] [address] 01/30/2025 1:30 PM EDT Laboratory Appointment Lab at [facility] Hematology Oncology [address] [place] [phone] 01/30/2025 3:[address] [place] [address] Arturo Cordero MD [facility] [place] [address] 01/30/2025 4:15 PM EDT Office Visit Hematology [place] [address] Arturo Cordero MD [facility] DR [place] [address] Scheduled Procedures Name Priority Associated Diagnoses Date/Ti me EGD, UPPER GI ENDOSCOPY (WRV U 2.09) Irritable bowel syndrome with constipation COLONOSCOPY, DIAGNOSTIC (WRV U 3.26) Irritable bowel syndrome with constipation documented as of this encounter Visit Diagnoses Not on filedocumented in this encounter Care Teams Director Shopper Marketing Relationship Specialty Start Date End Date Rodney Padilla MD PCP - General 07/18/22 04/09/24 documented as of this encounter
--- OUTSIDE RECORDS SUMMARY | 2024-06-07 13:30 | XMS_ITS | Encounter Summary ---
Author Organization [facility] [place] [address] Care Team Providers Care Fisher Trawl Line Name Role Phone Rodney Padilla MD Primary Care Provider Reason for Visit * Reason Comments Medication Refill Encounter Details Date Type Department Care Team (Late st Contact Info) Description 02/10/2024 Refill Family Medicine at [facility] [address] [place] [address] Rodney Padilla MD [address] [place] [address] Mixed hyperlipidemia Social History Tobacco Use Types [...] AM EST Office Visit Internal Medicine at [place] [address] [place] [phone] Daryn Garrett MD [facility] DR LILI AZEVED[place] [address] 10/02/2024 1:00 PM EDT Office [place] [phone] Juanpablo Hernandez MD [facility] [place] [address] 01/30/2025 1:30 PM EDT Laboratory Appointment Lab at [facility] Hematology Oncology [address] [place] [phone] 01/30/2025 3:[address] [place] [address] Arturo Cordero MD [facility] DR HEMATOLOGY [place] [address] 01/30/2025 4:15 PM EDT Office Visit Hematology [place] [address] Arturo Cordero MD [facility] DR HEMATOLOGY [place] [address] Scheduled Procedures Name Priority Associated Diagnoses Date/Ti me EGD, UPPER GI ENDOSCOPY (WRV U 2.09) Irritable bowel syndrome with constipation COLONOSCOPY, DIAGNOSTIC (WRV U 3.26) Irritable bowel syndrome with constipation documented as of this encounter Visit Diagnoses Diagnosis Mixed hyperlipidemia documented in this encounter Care Teams Fisher Trawl Line Relationship Specialty Start Date End Date Rodney Padilla MD PCP - General 07/18/22 04/09/24 documented as of this encounter
--- OUTSIDE RECORDS SUMMARY | 2024-06-07 13:30 | XMS_ITS | Encounter Summary ---
Author Organization [facility] [place] [address] Care Team Providers Care Carpenter Mold Name Role Phone Rodney Padilla MD Primary Care Provider [phone] Encounter Details Date Type Department Care Team (Latest Contact Info) Description 12/20/2023 2:00 PM EDT Laboratory Appointment Lab at [facility] [address] [place] [address] Type 2 diabetes mellitus without [...] AM EST Office Visit Internal Medicine at [address] [phone] Daryn Garrett MD [facility] DR LILI [place]ER [place] [address] 10/02/2024 1:00 PM EDT Office [place] [phone] Juanpablo Hernandez MD [facility] [place] [address] 01/30/2025 1:30 PM EDT Laboratory Appointment Lab at [facility] [place] [address] [place] [phone] 01/30/2025 3:[address] [place] [address] Arturo Cordero MD [facility] HEMATOLOGY [place] [address] 01/30/2025 4:15 PM EDT Office Visit Hematology and Oncology at [facility] [place] [address] Arturo Cordero MD [facility] DR HEMAT[place] [address] Scheduled Procedures Name Priority Associated Diagnoses Date/Ti [...] Not Calculated 0 - 29 mcg/mg Cr [facility] Comment: Reference Ranges: <30 mcg/mg: [...] 2, 357? 362 Albumin, Urine <3.0 mg/L [facility] Creatinine, Urine 75 mg/dL [facility] Urine 12/20/2023 2:28 PM EDT 12/20/2023 4:11 PM EDT Narrative Resulting Agency Comment Spec In Lab Rodney Padilla MD URINE ORDERABLES Performing Organization Address [facility] Co de Phone Number [facility] [place] [address] * (ABNORMAL) Hemoglobin A1c (12/20/2023 2:14 PM EDT) Hemoglobin A1c 9.4(H) 4.3 - 5.6 % [facility] Comment: Reference Range: 4.3 - [...] Mellitus, Diabetes Care 2013; 36: Suppl. 1, S67-94 Estimated Average Glucose 222 mg/dL [facility] Blood 12/20/2023 2:14 PM EDT 12/20/2023 4:37 PM EDT Narrative Resulting Agency Comment Spec In Lab Rodney Padilla MD CHEMISTRY ORDERABLE S Performing Organization Address City/[facility] Co de Phone Number [facility] [place] [address] documented in this encounter Visit Diagnoses Diagnosis Type 2 diabetes mellitus without long-term current use of insulin documented in this encounter Care Teams Carpenter Mold Relationship Specialty Start Date End Date Rodney Padilla MD PCP - General 07/18/22 04/09/24 documented as of this encounter
--- OUTSIDE RECORDS SUMMARY | 2024-06-07 13:30 | XMS_ITS | Encounter Summary ---
Author Organization [facility] [address] Care Team Providers Care Cray Fishing Hand Name Role Phone Rodney Padilla MD Primary Care Provider [phone] Reason for Visit * Reason Comments Medication Refill Encounter Details Date Type Department Care Team (Late st Contact Info) Description 09/25/2023 Refill Family Medicine at [facility] [address] [place] [address] Rodney Padilla MD [address] [place] [address] [place] [address] Social History Tobacco Use Types Packs/Day Years [...] Disp Refills fluticasone propionate (Flonase) 50 mcg/actuation [place], Suspension [Pharmacy Med Name: FLUTICASONEPROP 50 MCG [...] (Non-Steroidal Anti-Inflammatory Drug) Nausea And Vomiting Yaritza Rnagel CMA 09/28/23 9:57 AM documented in this encounter Plan of Treatment Upcoming Encounters Date Type Department Care Team (Late st Contact Info) Description 06/28/2024 9:30 AM EST Office Visit Internal Medicine at [facility] [address] [place] [address] Daryn Garrett MD [facility] DR LILI [place] [address] 10/02/2024 1:00 PM EDT Office [place] [phone] Juanpablo Hernandez MD [facility] [place] [address] 01/30/2025 1:30 PM EDT Laboratory Appointment Lab at [facility] Hematology Oncology [address] [place] [phone] 01/30/2025 3:[address] [place] [phone] Arturo Cordero MD [facility] [place] [address] 01/30/2025 4:15 PM EDT Office Visit Hematology [place] [address] Arturo Cordero MD [facility] [place] [address] Scheduled Procedures Name Priority Associated Diagnoses Date/Ti me EGD, UPPER GI ENDOSCOPY (WRV U 2.09) Irritable bowel syndrome with constipation COLONOSCOPY, DIAGNOSTIC (WRV U 3.26) Irritable bowel syndrome with constipation documented as of this encounter Visit Diagnoses Not on filedocumented in this encounter Care Teams Cray Fishing Hand Relationship Specialty Start Date End Date Rodney Padilla MD PCP - General 07/18/22 04/09/24 documented as of this encounter
--- OUTSIDE RECORDS SUMMARY | 2024-06-07 13:30 | XMS_ITS | Encounter Summary ---
Author Organization [facility] [place] [address] Care Team Providers Care Asphalt Distributor Operator Name Role Phone Rodney Padilla MD Primary Care Provider Reason for Visit * Reason Comments Melanoma Melanoma of conjunct ana luisa OS Encounter Details Date Type Department Care Team (Late st Contact Info) Description 11/29/2023 2:45 PM EDT Office [place] [address] Juanpablo Hernandez MD [facility] [place] [address] Malignant melanoma of conjunctiva, left; Type 2 [...] AM EST Office Visit Internal Medicine at [facility] [address] [place] [address] Daryn Garrett MD [facility] DR LILI [place] [address] 10/02/2024 1:00 PM EDT Office Visit Ophthalmology at [place] [phone] Juanpablo Hernandez MD [facility] [place] [place] [address] 01/30/2025 1:30 PM EDT Laboratory Appointment Lab at [facility] Hematology Oncology [address] [place] [address] 01/30/2025 3:[address] Scan at [address] Arturo Cordero MD [facility] DR [place] [address] 01/30/2025 4:15 PM EDT Office Visit Hematology [place] [phone] Arturo Cordero MD [facility] DR [place] [address] Scheduled Procedures Name Priority Associated Diagnoses Date/Ti me EGD, UPPER GI ENDOSCOPY (WRV U 2.09) Irritable bowel syndrome with constipation COLONOSCOPY, DIAGNOSTIC (WRV U 3.26) Irritable bowel syndrome with constipation documented as of this encounter Visit Diagnoses Diagnosis Malignant melanoma of conjunctiva, left Type 2 diabetes mellitus without long-term current use of insulin documented in this encounter Care Teams Asphalt Distributor Operator Relationship Specialty Start Date End Date Rodney Padilla MD PCP - General 07/18/22 04/09/24 documented as of this encounter
--- OUTSIDE RECORDS SUMMARY | 2024-06-07 13:30 | XMS_ITS | Encounter Summary ---
Author Organization [facility] Address [facility] [place] [address] Care Team Providers Care Senior Accounts Payable Clerk Name Role Phone Rodney Padilla MD [...] AM EST Office Visit Internal Medicine at [facility] [address] [place] [address] Daryn Garrett MD [facility] DR LILI [place] [address] 10/02/2024 1:00 PM EDT Office [place] [phone] Juanpablo Hernandez MD [facility] [place] [address] 01/30/2025 1:30 PM EDT Laboratory Appointment Lab at [facility] Hematology Oncology [address] [place] [phone] 01/30/2025 3:[address] [place] [address] Arturo Cordero MD [facility] [place] [address] 01/30/2025 4:15 PM EDT Office Visit Hematology [place] [address] Arturo Cordero MD [facility] DR [place] [address] Scheduled Procedures Name Priority Associated Diagnoses Date/Ti me EGD, UPPER GI ENDOSCOPY (WRV U 2.09) Irritable bowel syndrome with constipation COLONOSCOPY, DIAGNOSTIC (WRV U 3.26) Irritable bowel syndrome with constipation documented as of this encounter Visit Diagnoses Not on filedocumented in this encounter Care Teams Senior Accounts Payable Clerk Relationship Specialty Start Date End Date Rodney Padilla MD PCP - General 07/18/22 04/09/24 documented as of this encounter
--- OUTSIDE RECORDS SUMMARY | 2024-06-07 13:30 | XMS_ITS | Encounter Summary ---
Author Organization [facility] [place] [address] Care Team Providers Care Business Reporter Name Role Phone Rodney Padilla MD Primary Care Provider [phone] Encounter Details Date Type Department Care Team (Late st Contact Info) Description 08/29/2023 2:15 PM EST Office Visit Sleep Center at [facility] [address] [place] [phone] Samantha Cadet, GEOSPATIAL SCIENTIST TITO on CPAP Social History Tobacco Use [...] neoplasm of kidney, asthma, COPD, Diabetes, HTN, UT, dry mouth, left eye,and mental health problem. [...] Breathing:yes Symptom Benefit: more rested with CPAP [place]:QSLEEPRESPONSES@Patient-reported last 4 scores: 05/07/2019 6:23 PM 05/09/2019 11:11 AM 04/13/2022 12:14 PM 08/29/2023 1:41 PM [facility] [place] Sleep 7 (Low Risk) 10 (High Risk) [...] if drowsy, if drowsy while driving to pack puller and take a nap. 4) Patient [...] AM EST Office Visit Internal Medicine at [place] [address] [place] [phone] Daryn Garrett MD [facility] DR LILI W[place]ER [place] [address] 10/02/2024 1:00 PM EDT Office [place] [phone] Juanpablo Hernandez MD [facility] [place] [address] 01/30/2025 1:30 PM EDT Laboratory Appointment Lab at [facility] Hematology Oncology [address] [place] [phone] 01/30/2025 3:[address] [place] [phone] Arturo Cordero MD [facility] HEMATOLOGY [place] [address] 01/30/2025 4:15 PM EDT Office Visit Hematology [place] [phone] Arturo Cordero MD [facility] HEMATOLOGY [place] [address] Scheduled Procedures Name Priority Associated Diagnoses Date/Ti me EGD, UPPER GI ENDOSCOPY (WRV U 2.09) Irritable bowel syndrome with constipation COLONOSCOPY, DIAGNOSTIC (WRV U 3.26) Irritable bowel syndrome with constipation documented as of this encounter Visit Diagnoses Diagnosis TITO on CPAP Obstructive sleep apnea (adult) (pediatric) documented in this encounter Care Teams Business Reporter Relationship Specialty Start Date End Date Rodney Padilla MD PCP - General 07/18/22 04/09/24 documented as of this encounter
--- OUTSIDE RECORDS SUMMARY | 2024-06-07 13:30 | XMS_ITS | Encounter Summary ---
Author Organization [facility] Address [facility] [place] [address] Care Team Providers Care Insulation Mechanic Name Role Phone Rodney Padilla MD Primary Care Provider Encounter Details Date Type Department Care Team (Late st Contact Info) Description 11/29/2023 1:20 PM EDT Office Visit Dermatology at [facility] [address] [place] [address] Antonia Minor MD [facility] DR L[place] [address] Multiple melanocytic nevi; Photoaging of skin; Seborrheic [...] not submit a PA), and will require [id number] payment at the pharmacy. - Discussed GoodRx, [...] and wound care were reviewed. #. Clavus ([place]) - Focal hyperkeratotic papule on the left [...] 1 year for FSE []Note routed to principal secretary [x]Recall placed in scheduling system []Appointment scheduled at checkout Scribe attestation: Nolberto Simmons has performed the documentation for this encounter in the presence of and acting as a scribe for Antonia Minor MD. I performed the above scribed service and agree with the accuracy of the documentation in this encounter. Reviewed and signed by: Antonia Minor MD Dermatology [facility] Staff entry operator: Justine Castillo MD Dermatology [facility] * Justine Castillo MD - 11/29/2023 1:20 PM EDT I was the supervising physician working with the Dermatology resident, Antonia Minor MD, in the care of this Dermatology patient in person. For the purposes of billing, the resident provided the care. I have reviewed the encounter note details and level of service. JUSTINE CASTILLO MD Staff Kitchen Bath Designer Department of Dermatology [facility] documented in this encounter Plan of Treatment Upcoming Encounters Date Type Department Care Team (Late st Contact Info) Description 06/28/2024 9:30 AM EST Office Visit Internal Medicine at [address] [address] Daryn Garrett MD [facility] DR LILI WALKER [place] [address] 10/02/2024 1:00 PM EDT Office Visit [place] [phone] Juanpablo Hernandez MD [facility] [place] [address] 01/30/2025 1:30 PM EDT Laboratory Appointment Lab at [facility] Hematology Oncology [address] [place] [phone] 01/30/2025 3:[address] [place] [phone] Arturo Cordero MD [facility] HEMATOLOGY [place] [address] 01/30/2025 4:15 PM EDT Office Visit Hematology [place] [address] Arturo Cordero MD [facility] DR HEMATOLOGY [place] [address] Scheduled Procedures Name Priority Associated Diagnoses Date/Ti [...] neoplasm documented in this encounter Care Teams Insulation Mechanic Relationship Specialty Start Date End Date Rodney Padilla MD PCP - General 07/18/22 04/09/24 documented as of this encounter
--- OUTSIDE RECORDS SUMMARY | 2024-06-07 13:30 | XMS_ITS | Encounter Summary ---
Author Organization [facility] Address [facility] [place] [address] Care Team Providers Care Black Jack Dealer Name Role Phone Rodney Padilla MD Primary Care Provider [phone] Reason for Visit * Reason Comments Follow-up Encounter Details Date Type Department Care Team (Late st Contact Info) Description 12/20/2023 1:30 PM EDT Office Visit Family Medicine at [facility] [address] [place] [address] Rodney Padilla MD [address] [place] [address] [place] [address] Type 2 diabetes mellitus without long-term current [...] or during use. 100 each 3 fluticasone vepwkcc-ltnjjjdrwsve-ezanzaxdkr (Trelegy Ellipta) 200-62.5-25 mcg Inhale 1 puff into the lungs daily. Rinse mouth after use 1 each 11 fluticasone propionate (Flonase) 50 mcg/actuation [place], Suspension SPRAY 1 SPRAY IN EACH NOSTRIL TWO TIMES A DAY 48 mL 3 lamoTRIgine (LaMICtal) 150 mg tablet Take 150 mg by mouth Daily at Noon. simvastatin (Zocor) 10 mg tablet TAKE ONE TABLET BY MOUTH EVERY DAY 90 tablet 1 Blood-Glucose Meter,Continuous (Dexcom G7 Scrapper) Misc 1 Device by Novant HealthZoeticx.(Non- Drug; Combo Route) route continuous. Blood-Glucose Sensor (Dexcom G7 Sensor) Device 1 Device by MisZoeticx.(Non-Drug; Combo Route) route every10 days. 3 each 11 Lantus Solostar U-100 Insulin 100 unit/mL (3 mL) pen Inject 18 Units subcutaneously nightly. Inject2-20 units based on BG Indications: type 2 diabetes mellitus inhalational spacing device (Hesham Aerosol Gila Enhancer) Spacer 1 each by Misc.(Non-Drug; Combo [...] patient/family/caregiver Referring and communicating with other health director medicare sales Documenting clinical information in the electronic or other health record Independently interpreting results Care coordination documented in this encounter Plan of Treatment Upcoming Encounters Date Type Department Care Team (Late st Contact Info) Description 06/28/2024 9:30 AM EST Office Visit Internal Medicine at [address] [address] Daryn Garrett MD [facility] DR LILI [place] [address] 10/02/2024 1:00 PM EDT Office [place] [phone] Juanpablo Hernandez MD [facility] [place] [address] 01/30/2025 1:30 PM EDT Laboratory Appointment Lab at [place] Hematology Oncology [address] [place] [phone] 01/30/2025 3:[address] [place] [address] Arturo Cordero MD [facility] [place] [address] 01/30/2025 4:15 PM EDT Office Visit [place] [address] Arturo Cordero MD [facility] [place] [address] Scheduled Procedures Name Priority Associated Diagnoses Date/Ti me EGD, UPPER GI ENDOSCOPY (WRV U 2.09) Irritable bowel syndrome with constipation COLONOSCOPY, DIAGNOSTIC (WRV U 3.26) Irritable bowel syndrome with constipation documented as of this encounter Results * U Albumin/Cre Ratio (12/20/2023 2:28 PM EDT) Albumin / Creatinin Ratio, Urine Not Calculated 0 - 29 mcg/mg Cr [facility] Comment: Reference Ranges: <30 mcg/mg: [...] 2, 357? 362 Albumin, Urine <3.0 mg/L [facility] Creatinine, Urine 75 mg/dL [facility] Urine 12/20/2023 2:28 PM EDT 12/20/2023 4:11 PM EDT Narrative Resulting Agency Comment Spec In Lab Rodney Padilla MD URINE ORDERABLES Performing Organization Address City/[facility]/ZIP Co de Phone Number [facility] [place] [address] * (ABNORMAL) Hemoglobin A1c (12/20/2023 2:14 PM EDT) Hemoglobin A1c 9.4(H) 4.3 - 5.6 % [facility] [...] 1, [id number] Estimated Average Glucose 222 mg/dL [facility] Blood 12/20/2023 2:14 PM EDT 12/20/2023 4:37 PM EDT Narrative Resulting Agency Comment Spec In Lab Rodney Padilla MD CHEMISTRY ORDERABLE S Performing Organization Address [facility] Co de Phone Number [facility] [place] [address] documented in this encounter Visit Diagnoses Diagnosis Type 2 diabetes mellitus without long-term current use of insulin Essential hypertension Unspecified essential hypertension TITO (obstructive sleep apnea) Obstructive sleep apnea (adult) (pediatric) Interstitial lung disease Postinflammatory pulmonary fibrosis documented in this encounter Care Teams Black Jack Dealer Relationship Specialty Start Date End Date Rodney Padilla MD PCP - General 07/18/22 04/09/24 documented as of this encounter
--- OUTSIDE RECORDS SUMMARY | 2024-06-07 13:30 | XMS_ITS | Encounter Summary ---
Author Organization [facility] Address [facility] [place] [address] Care Team Providers Care Terminal Press Operator Name Role Phone Rodney Padilla MD Primary Care Provider Reason for Visit * Reason Onset Date Comments Medication Refill 02/10/2024 Encounter Details Date Type Department Care Team (Late st Contact Info) Description 02/10/2024 Refill Family Medicine at [facility] [address] [place] [address] Luis E Narayan MD [facility] DR LILI [place] [address] Social History Tobacco Use Types Packs/Day Years [...] AM EST Office Visit Internal Medicine at [address] [phone] Daryn Garrett MD [facility] DR LILI [place] [address] 10/02/2024 1:00 PM EDT Office Visit [place] [phone] Juanpablo Hernandez MD [facility] [place] [address] 01/30/2025 1:30 PM EDT Laboratory Appointment Lab at [facility] [place] Oncology [address] [place] [phone] 01/30/2025 3:[address] [place] [phone] Arturo Cordero MD [facility] DR [place] [address] 01/30/2025 4:15 PM EDT Office Visit Hematology [place] [address] Arturo Cordero MD [facility] [place] [address] Scheduled Procedures Name Priority Associated Diagnoses Date/Ti me EGD, UPPER GI ENDOSCOPY (WRV U 2.09) Irritable bowel syndrome with constipation COLONOSCOPY, DIAGNOSTIC (WRV U 3.26) Irritable bowel syndrome with constipation documented as of this encounter Visit Diagnoses Not on filedocumented in this encounter Care Teams Terminal Press Operator Relationship Specialty Start Date End Date Rodney Padilla MD PCP - General 07/18/22 04/09/24 documented as of this encounter
--- OUTSIDE RECORDS SUMMARY | 2024-06-07 13:30 | XMS_ITS | Encounter Summary ---
Author Organization [facility] Address [facility] [place] [address] Care Team Providers Care General Cargo Clerk Name Role Phone Rodney Padilla MD [...] AM EST Office Visit Internal Medicine at [facility] [address] [place] [address] Daryn Garrett MD [facility] DR LILI [place] [address] 10/02/2024 1:00 PM EDT Office [place] [phone] Juanpablo Hernandez MD [facility] [place] [address] 01/30/2025 1:30 PM EDT Laboratory Appointment Lab at [facility] [place]ology On[place] [address] [place] [phone] 01/30/2025 3:[address] [place] [phone] Arturo Cordero MD [facility] [place] [address] 01/30/2025 4:15 PM EDT Office Visit Hematology [place] [address] Arturo Cordero MD [facility] DR [place] [address] Scheduled Procedures Name Priority Associated Diagnoses Date/Ti me EGD, UPPER GI ENDOSCOPY (WRV U 2.09) Irritable bowel syndrome with constipation COLONOSCOPY, DIAGNOSTIC (WRV U 3.26) Irritable bowel syndrome with constipation documented as of this encounter Visit Diagnoses Not on filedocumented in this encounter Care Teams General Cargo Clerk Relationship Specialty Start Date End Date Rodney Padilla MD PCP - General 07/18/22 04/09/24 documented as of this encounter
--- OUTSIDE RECORDS SUMMARY | 2024-06-07 13:30 | XMS_ITS | Encounter Summary ---
Author Organization [facility] Address [facility] [place] [address] Care Team Providers Care Glass Checker Name Role Phone Rodney Padilla MD Primary [...] AM EST Office Visit Internal Medicine at [facility] [address] [place] [address] Daryn Garrett MD [facility] DR LIL[place] [address] 10/02/2024 1:00 PM EDT Office [place] [phone] Juanpablo Hernandez MD [facility] [place] [address] 01/30/2025 1:30 PM EDT Laboratory Appointment Lab at [facility] Hematology Oncology [address] [place] [phone] 01/30/2025 3:[address] [place] [phone] Arturo Cordero MD [facility] [place] [address] 01/30/2025 4:15 PM EDT Office Visit Hematology [place] [address] Arturo Cordero MD [facility] [place] [address] Scheduled Procedures Name Priority Associated Diagnoses Date/Ti me EGD, UPPER GI ENDOSCOPY (WRV U 2.09) Irritable bowel syndrome with constipation COLONOSCOPY, DIAGNOSTIC (WRV U 3.26) Irritable bowel syndrome with constipation documented as of this encounter Visit Diagnoses Not on filedocumented in this encounter Care Teams Glass Checker Relationship Specialty Start Date End Date Rodney Padilla MD PCP - General 07/18/22 04/09/24 documented as of this encounter
--- OUTSIDE RECORDS SUMMARY | 2024-06-07 13:30 | XMS_ITS | Encounter Summary ---
Author Organization [facility] [place] [address] Care Team Providers Care Car Knocker Name Role Phone Rodney Padilla MD Primary Care Provider [phone] Reason for Visit * Consultation (Routine) - Closed Specialty Diagnoses / Procedures Referred By Gonzalez kumari Referred To Contact Pulmonology Diagnoses Interstitial lung disease Rodney Padilla MD [address] [place] [address] [place] [address] [facility] [address] [place] [phone] Referral ID Status Reason Start Date Expiration Date V isits Requested Visits Authorized [id number] Closed Consult, Test & Treat 08/21/2023 08/20/2024 1 1 Encounter Details Date Type Department Care Team (Late st Contact Info) Description 10/24/2023 11:00 AM EDT Office [place] [phone] Jonathan Boswell MD [facility] [place] [address] Nicotine dependence, cigarettes, uncomplicated; Wheeze; [...] and gum and have you call the Gir[employer] Friend line for additional assistance. They may also [...] visit. You can reach me by phone ([phone]) or by sending a [employer] message. Best, Jonathan Boswell MD Tips for Optimal Use of Nasal [place] Medication It is incredibly common for people [...] towards the top of your Left ear. [place] the medication. But DO NOT forcefully sniff [...] he starts to go through the procedure. [email or web address] Tobacco Treatment: Nicotine Replacement Instructions Nicotine patch [...] from the original note were not included. [facility] Section of Pulmonary and Critical Care Medicine Outpatient Consultation - Initial Visit Date of Encounter: 10/24/2023 Referring Provider: Rodney Padilla MD [address] [place] [address] PCP: Rodney Padilla MD Reason for Evaluation: ILD This was a lcdb-zo-frvh office visit. History of Present Illness: Alize [...] on disability. 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 She enjoys gardening, renae in particular. 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 10/09/2007 History of [...] performed by Juanpablo Hernandez MD at [facility] PRO EXCIS CORNEA LESN Left 05/14/2020 EXCISION OF LESION, CORNEA, EXCEPT PTERYGIUM (WRVU 7.5) performed by Juanpablo Hernandez MD at [facility] PRO LAP, PARTIAL NEPHRECTOMY Left 06/28/2019 LAPAROSCOPY, PARTIAL NEPHRECTOMY, ROBOTIC ASSIST (WRVU 27.41) performed by Avila Medina MD at [facility] MAIN OR PRO PLACE AMNIOTIC MEMBRANE OCULAR SURFACE;SINGLE LAYER SUTURED Left 05/14/2020 PLACEMENT OF AMNIOTIC MEMBRANE ON THE OCULAR SURFACE,SINGLE LAYER,SUTURED (WRVU 2.5) performed by Juanpablo Hernandez MD at [facility] Family History: Family History Problem (# [...] privary and control challenging. 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 Current Medications Current Outpatient Medications: fluticasone propionate (Flonase) 50 mcg/actuation [place], Suspension, SPRAY 1 SPRAY IN EACH NOSTRIL TWO TIMES A DAY, Disp: 48 mL, Rfl: 3 lamoTRIgine (LaMICtal) 150 mg tablet, Take 150 mg by mouth Daily at Noon., Disp: , Rfl: simvastatin (Zocor) 10 mg tablet, TAKE ONE TABLET BY MOUTH EVERY DAY, Disp: 90 tablet, Rfl: 1 Blood-Glucose Meter,Continuous (Dexcom G7 Correctional Corporal) Misc, 1 Device by Misc.(Non- Drug; Combo [...] , Rfl: inhalational spacing device (Hesham Aerosol [place] Enhancer) Spacer, 1 each by Misc.(Non-Drug; Combo [...] minutes on this encounter on 10/24/2023 including vppu-gp-xwpx time, counseling, managingmedications, reviewing records, interpreting data, and documenting as detailed in my note above. Jonathan Boswell MD [facility] Personal Bankercement production plant operator Pulmonary [place] [address] [email or web address] documented in this encounter Plan of Treatment Upcoming Encounters Date Type Department Care Team (Late st Contact Info) Description 06/28/2024 9:30 AM EST Office Visit Internal Medicine at [address] [place] [address] Daryn Garrett MD [facility] DR LILI [place] [address] 10/02/2024 1:00 PM EDT Office Visit [place] [address] Juanpablo Hernandez MD [facility] [place] [address] 01/30/2025 1:30 PM EDT Laboratory Appointment Lab at [facility] Hematology Oncology [address] [place], [place] [phone] 01/30/2025 3:[address] Scan at [place] [phone] Arturo Cordero MD [facility] [address] [place] [address] 01/30/2025 4:15 PM EDT Office Visit Hematology and Oncology at [place] [phone] Arturo Cordero MD [facility] [address] [place] [address] Scheduled Orders Name Type Priority Associated Diagnoses Orde r Schedule Common Pulmonary Function Test PFT Routine Wheeze Chronic cough Abnormal PFT Expected: 02/21/2024, Expires: 08/22/2024 Scheduled Procedures Name Priority Associated Diagnoses Date/Ti [...] present documented in this encounter Care Teams Car Knocker Relationship Specialty Start Date End Date Rodney Padilla MD PCP - General 07/18/22 04/09/24 documented as of this encounter
--- OUTSIDE RECORDS SUMMARY | 2024-06-07 13:30 | XMS_ITS | Encounter Summary ---
Author Organization [facility] Address [facility] [place] [address] Care Team Providers Care Pack Room Operator Name Role Phone Rodney Padilla MD Primary Care Provider Reason for Visit * Reason Comments Diabetes Encounter Details Date Type Department Care Team (Late st Contact Info) Description 10/27/2023 9:45 AM EDT TH Visit (TeleHealth) Family Medicine at [facility] [address] [place] [phone] Julia Low, [facility] Type 2 diabetes mellitus without [...] any of the following conditions: Yes [x] [place]/Stroke/CAD [] Retinopathy [] CHF [x] Neuropathy [] [...] money, job, social) Living/housing situation and property worker Barriers Identified: Per Patient reports that after [...] are performed regularly. 1-2 x daily. Uses [employer] testing supplies Interested in Dexcom G7, report approved by insurance. Received Dexcom G7 CGM through [employer]. Has not set up Offered clinic appt to set up but pt declined as she will not be in the area for a month but she agrees to reach out to local oncology account specialist who assisted her in the past Before [...] 186 191 176 Daily Avg 152 eA1c [id number] Prior Averages: 08/26/21 09/09/21 09/24/21 11/14/21 11/03/22 12/01/22 01/03/23 08/18/23 Daily Avg 157 168 131 138 175 153 176 211 eA1c 8.71549 8.46 7.20 7.44 8.7 7.95 8.75 9.96 [...] or during use. 100 each 3 fluticasone cskfkii-mtmgkplxsmqy-lofcrmusmd (Trelegy Ellipta) 200-62.5-25 mcg Inhale 1 puff into the lungs daily. Rinse mouth after use 1 each 11 fluticasone propionate (Flonase) 50 mcg/actuation [place], Suspension SPRAY 1 SPRAY IN EACH NOSTRIL TWO TIMES A DAY 48 mL 3 lamoTRIgine (LaMICtal) 150 mg tablet Take 150 mg by mouth Daily at Noon. simvastatin (Zocor) 10 mg tablet TAKE ONE TABLET BY MOUTH EVERY DAY 90 tablet 1 Blood-Glucose Meter,Continuous (Dexcom G7 Machine Guide Base Winder) Misc 1 Device by [facility].(Non- Drug; Combo Route) route continuous. Blood-Glucose Sensor [...] mL 11 inhalational spacing device (Hesham Aerosol [place] Enhancer) Spacer 1 each by Misc.(Non-Drug; Combo [...] AM EST Office Visit Internal Medicine at [address] [phone] Daryn Garrett MD [facility] LILI [place] [address] 10/02/2024 1:00 PM EDT Office [place] [phone] Juanpablo Hernandez MD [facility] [place] [address] 01/30/2025 1:30 PM EDT Laboratory Appointment Lab [place] [facility] [place] [address] [place] [phone] 01/30/2025 3:[address] [place] [address] Arturo Cordero MD [facility] DR HEMATOLOGY [place] [address] 01/30/2025 4:15 PM EDT Office Visit Hematology [place] [address] Arturo Cordero MD [facility] DR HEMATOLOGY [place] [address] Scheduled Procedures Name Priority Associated Diagnoses Date/Ti me EGD, UPPER GI ENDOSCOPY (WRV U 2.09) Irritable bowel syndrome with constipation COLONOSCOPY, DIAGNOSTIC (WRV U 3.26) Irritable bowel syndrome with constipation documented as of this encounter Visit Diagnoses Diagnosis Type 2 diabetes mellitus without long-term current use of insulin- Primary documented in this encounter Care Teams Pack Room Operator Relationship Specialty Start Date End Date Rodney Padilla MD PCP - General 07/18/22 04/09/24 documented as of this encounter
--- OUTSIDE RECORDS SUMMARY | 2024-06-07 13:30 | XMS_ITS | Encounter Summary ---
Author Organization [facility] Address One [facility] [place] [address] Care Team Providers Care Rail Project Engineer Name Role Phone Rodney Padilla MD Primary Care Provider Reason for Visit * Reason Comments Diabetes Encounter Details Date Type Department Care Team (Late st Contact Info) Description 01/01/2024 11:00 AM EDT TH Visit (TeleHealth) Family Medicine at [facility] [address] [place] [phone] Julia Low, [facility] [...] Low [facility] - 01/01/2024 11:00 AM EDT Images [...] any of the following conditions: Yes [x] SD/Stroke/CAD [] Retinopathy [] CHF [x] Neuropathy [] [...] - asa 81 mg and clopidogrel -Uses [employer] [facility] -Prefers oral therapies to injections but [...] performed regularly using Dexcom CGM G7 Uses [employer] testing supplies Interested in Dexcom G7, report approved by insurance. Received Dexcom G7 CGM through [employer] Has not set up Prior Averages: 08/26/21 09/09/21 09/24/21 11/14/21 11/03/22 12/01/22 01/03/23 08/18/23 10/26/23 Daily Avg 157 168 131 138 175 153 176 211 152 eA1c 8.02210 8.46 7.20 7.44 8.7 7.95 8.75 9.96 [...] or during use. 100 each 3 fluticasone uigzakj-pfdkgumkitjh-vpxgisibgr (Trelegy Ellipta) 200-62.5-25 mcg Inhale 1 puff into the lungs daily. Rinse mouth after use 1 each 11 fluticasone propionate (Flonase) 50 mcg/actuation [place], Suspension SPRAY 1 SPRAY IN EACH NOSTRIL TWO TIMES A DAY 48 mL 3 lamoTRIgine (LaMICtal) 150 mg tablet Take 150 mg by mouth Daily at Noon. simvastatin (Zocor) 10 mg tablet TAKE ONE TABLET BY MOUTH EVERY DAY 90 tablet 1 Blood-Glucose Meter,Continuous (Dexcom G7 Business Objects Analyst) Misc 1 Device by Mis.(Non- Drug; Combo Route) route continuous. Blood-Glucose Sensor (Dexcom G7 Sensor) Device 1 Device by Misc.(Non-Drug; Combo Route) route every10 days. 3 each 11 Lantus Solostar U-100 Insulin 100 unit/mL (3 mL) pen Inject 18 Units subcutaneously nightly. Inject2-20 units based on BG Indications: type 2 diabetes mellitus inhalational spacing device (Hesham Aerosol [place] Enhancer) Spacer 1 each by Misc.(Non-Drug; Combo [...] and follow up. Julia Low, [facility] 01/01/24 Total time spent: 45 minutes documented in this encounter Plan of Treatment Upcoming Encounters Date Type Department Care Team (Late st Contact Info) Description 06/28/2024 9:30 AM EST Office Visit Internal Medicine at [facility] [address] [place] [phone] Daryn Garrett MD [facility] DR LILI [place] [address] 10/02/2024 1:00 PM EDT Office [place] [phone] Juanpablo Hernandez MD [facility] [place] [address] 01/30/2025 1:30 PM EDT Laboratory Appointment Lab at [facility] Hematology Oncology [address] [place] [phone] 01/30/2025 3:[address] [place] [phone] Arturo Cordero MD [facility] [place] [address] 01/30/2025 4:15 PM EDT Office Visit Hematology [place] [phone] Arturo Cordero MD [facility] DR [place] [address] Scheduled Procedures Name Priority Associated Diagnoses Date/Ti me EGD, UPPER GI ENDOSCOPY (WRV U 2.09) Irritable bowel syndrome with constipation COLONOSCOPY, DIAGNOSTIC (WRV U 3.26) Irritable bowel syndrome with constipation documented as of this encounter Visit Diagnoses Diagnosis Type 2 diabetes mellitus without long-term current use of insulin documented in this encounter Care Teams Rail Project Engineer Relationship Specialty Start Date End Date Rodney Padilla MD PCP - General 07/18/22 04/09/24 documented as of this encounter
--- OUTSIDE RECORDS SUMMARY | 2024-06-07 13:30 | XMS_ITS | Encounter Summary ---
Author Organization [facility] Address [facility] [place] [address] Care Team Providers Care Pond Worker Name Role Phone Rodney Padilla MD [...] AM EST Office Visit Internal Medicine at [facility] [address] [place] [address] Daryn Garrett MD [facility] DR LILI WALKER - [place] [address] 10/02/2024 1:00 PM EDT Office [place] [phone] Juanpablo Hernandez MD [facility] [place] [address] 01/30/2025 1:30 PM EDT Laboratory Appointment Lab [place] [facility] [place] [address] [place] [phone] 01/30/2025 3:[address] [place] [phone] Arturo Cordero MD [facility] HEMATOLOGY [place] [address] 01/30/2025 4:15 PM EDT Office Visit Hematology [place] [address] Arturo Cordero MD [facility] DR HEMATOLOGY [place] [address] Scheduled Procedures Name Priority Associated Diagnoses Date/Ti me EGD, UPPER GI ENDOSCOPY (WRV U 2.09) Irritable bowel syndrome with constipation COLONOSCOPY, DIAGNOSTIC (WRV U 3.26) Irritable bowel syndrome with constipation documented as of this encounter Visit Diagnoses Not on filedocumented in this encounter Care Teams Pond Worker Relationship Specialty Start Date End Date Rodney Padilla MD PCP - General 07/18/22 04/09/24 documented as of this encounter
--- OUTSIDE RECORDS SUMMARY | 2024-06-07 13:30 | XMS_ITS | Encounter Summary ---
Author Organization [facility] [place] [address] Care Team Providers Care Polygraph Technician Name Role Phone Rodney Padilla MD Primary Care Provider Reason for Referral * Diagnostic Test (Routine) - Closed Specialty Diagnoses / Procedures Referred By Contac t Referred To Contact Radiology Diagnoses Malignant melanoma of conjunctiva, left Procedures CT Neck Soft Tissue w Contrast (Generic) Tee Lara MD [facility] DR HEMATOLOGY/[place] [address] [facility] [place] [address] Referral ID Status Reason Start Date Expiration Date V isits Requested Visits Authorized [id number] Closed Specialty Service Requested 08/03/2023 01/31/2025 1 1 * Diagnostic Test (Routine) - Closed Specialty Diagnoses / Procedures Referred By Contac t Referred To Contact Radiology Diagnoses Malignant melanoma of conjunctiva, left Procedures CT Chest Abdomen Pelvis w Contrast (Generic) Tee Lara MD [facility] DR HEMATOLOGY/[place] [address] [facility] [place] [address] Referral ID Status Reason Start Date Expiration Date V isits Requested Visits Authorized [id number] Closed Specialty Service Requested 08/03/2023 01/31/2025 1 1 Reason for Visit * Diagnostic Test (Routine) - Closed Specialty Diagnoses / Procedures Referred By Contac t Referred To Contact Radiology Diagnoses Malignant melanoma of conjunctiva, left Procedures CT Chest Abdomen Pelvis w Contrast (Generic) Tee Lara MD [facility] DR HEMATOLOGY/[place] [address] [facility] [place] [address] Referral ID Status Reason Start Date Expiration Date V isits Requested Visits Authorized [id number] Closed Specialty Service Requested 08/03/2023 01/31/2025 1 1 Encounter Details Date Type Department Care Team (Latest Contact Info) Description 02/01/2024 8:04 AM EDT - 02/01/2024 8:11 AM EDT Hospital [place] [phone] Arturo Cordero MD [facility] DR HEMATOLOGY [place] [address] Malignant melanoma of conjunctiva, left [...] 11 10/24/2023 fluticasone propionate (Flonase) 50 mcg/actuation Supply, Suspension SPRAY 1 SPRAY IN EACH NOSTRIL TWO TIMES A DAY 48 mL 3 09/28/2023 lamoTRIgine (LaMICtal) 150 mg tablet Take 150 mg by mouth Daily at Noon. 08/17/2023 Blood-Glucose Meter,Continuous (Dexcom G7 Strategic Advisor) MiscIndications:Type 2 diabetes mellitus with hyperglycemia, without long-term current use of insulin 1 Device by [facility].(Non-Drug; Combo Route) route continuous. 08/18/2023 Blood-Glucose Sensor (Dexcom G7 Sensor) DeviceIndications:Typ e 2 diabetes mellitus with hyperglycemia, without long-term current use of insulin 1 Device by [facility].(Non-Drug; Combo Route) route every 10 days. 3 each 11 08/18/2023 inhalational spacing device (Hesham Aerosol [place] Enhancer) SpacerIndications:Chr onic obstructive pulmonary disease, unspecified COPD type 1 each by [facility] [...] AM EST Office Visit Internal Medicine at [address] [phone] Daryn Garrett MD [facility] LILI [place]ER [place] [address] 10/02/2024 1:00 PM EDT Office Visit [place] [phone] Juanpablo Hernandez MD [facility] [place] [address] 01/30/2025 1:30 PM EDT Laboratory Appointment Lab [place] [facility] [place] [address] [place] [phone] 01/30/2025 3:[address] [place] [phone] Arturo Cordero MD [facility] HEMATOLOGY [place] [address] 01/30/2025 4:15 PM EDT Office Visit Hematology [place] [phone] Arturo Cordero MD [facility] HEMATOLOGY [place] [address] Scheduled Procedures Name Priority Associated Diagnoses Date/Ti [...] w Contrast (Generic) (02/01/2024 10:24 AM EDT) [employer] Signature WORKSTATION ID [id number] RAD Anatomical Region Laterality Modality Neck, Head [...] who have questions please contact the health anesthesiologist and critical care that requested your imaging first. ? Electronically signed by: HIMANSHU Vega [facility] ([phone]), at 02/02/2024 4:32 PM Narrative 02/02/2024 4:32 [...] patients who have questions please contactthe health anesthesiologist and critical care that requested your imaging first. Arturo Cordero MD IMG CT ORDERABLES * CT Chest Abdomen Pelvis w Contrast (Generic) (02/01/2024 10:24 AM EDT) WORKSTATION ID [id number] RAD Anatomical Region Laterality Modality Abdomen, Pelvis [...] who have questions please contact the health anesthesiologist and critical care that requested your imaging first. [...] patients who have questions please contactthe health anesthesiologist and critical care that requested your imaging first. Arturo Cordero [...] mLs documented in this encounter Care Teams Polygraph Technician Relationship Specialty Start Date End Date Rodney Padilla MD PCP - General 07/18/22 04/09/24 documented as of this encounter
--- OUTSIDE RECORDS SUMMARY | 2024-06-07 13:30 | XMS_ITS | Encounter Summary ---
Author Organization [facility] [place] [address] Care Team Providers Care Horizontal Boring Mill Operator Name Role Phone Rodney Padilla MD Primary Care Provider Reason for Visit * Reason Onset Date Comments Medication Refill 02/10/2024 Encounter Details Date Type Department Care Team (Late st Contact Info) Description 02/10/2024 Refill Family Medicine at [facility] [address] [place] [address] Rodney Padilla MD [address] [place] [address] [place] [address] Mixed hyperlipidemia Social History Tobacco Use [...] AM EST Office Visit Internal Medicine at [facility] [address] [place] [address] Daryn Garrett MD [facility] DR LILI [place]ER [place] [address] 10/02/2024 1:00 PM EDT Office [place] [phone] Juanpablo Hernandez MD [facility] [place] [address] 01/30/2025 1:30 PM EDT Laboratory Appointment Lab at [facility] Hematology Oncology [address] [place] [phone] 01/30/2025 3:[address] [place] [phone] Arturo Cordero MD [facility] DR HEMATOLOGY [place] [address] 01/30/2025 4:15 PM EDT Office Visit Hematology [place] [phone] Arturo Cordero MD [facility] DR HEMATOLOGY [place] [address] Scheduled Procedures Name Priority Associated Diagnoses Date/Ti or EGD, UPPER GI ENDOSCOPY (WRV U 2.09) Irritable bowel syndrome with constipation COLONOSCOPY, DIAGNOSTIC (WRV U 3.26) Irritable bowel syndrome with constipation documented as of this encounter Visit Diagnoses Diagnosis Mixed hyperlipidemia documented in this encounter Care Teams Horizontal Boring Mill Operator Relationship Specialty Start Date End Date Rodney Padilla MD PCP - General 07/18/22 04/09/24 documented as of this encounter
--- OUTSIDE RECORDS SUMMARY | 2024-06-07 13:30 | XMS_ITS | Encounter Summary ---
Author Organization [facility] Address [facility] [place] [address] Care Team Providers Care Banking Supervisor Name Role Phone Rodney Padilla MD [...] at [facility] [address] [place] [address] Daryn Garrett MD [facility] DR [place] [address] 10/02/2024 1:00 PM EDT Office [place] [phone] Juanpablo Henrandez MD [facility] [place] [address] 01/30/2025 1:30 PM EDT Laboratory Appointment Lab at [facility] Hematology Oncology [address] [place] [phone] 01/30/2025 3:[address] [place] [phone] Arturo Cordero MD [facility] [place] [address] 01/30/2025 4:15 PM EDT Office Visit [place]ology [place] [address] Arturo Cordero MD [facility] [address] [place] [address] Scheduled Procedures Name Priority Associated Diagnoses Date/Ti me EGD, UPPER GI ENDOSCOPY (WRV U 2.09) Irritable bowel syndrome with constipation COLONOSCOPY, DIAGNOSTIC (WRV U 3.26) Irritable bowel syndrome with constipation documented as of this encounter Visit Diagnoses Not on filedocumented in this encounter Care Teams Banking Supervisor Relationship Specialty Start Date End Date Rodney Padilla MD PCP - General 07/18/22 04/09/24 documented as of this encounter
--- OUTSIDE RECORDS SUMMARY | 2024-06-07 13:30 | XMS_ITS | Encounter Summary ---
Author Organization [facility] [place] [address] Care Team Providers Care Dean Of Student Services Name Role Phone Rodney Padilla MD Primary Care Provider [phone] Reason for Visit * Reason Onset Date Comments Prior Authorization 12/07/2023 [employer] 0.025% cream Encounter Details Date Type Department Care Team (Late st Contact Info) Description 12/07/2023 Telephone Dermatology at [facility] [address] [place] [address] Erika Caraballo LNA Prior Authorization ([employer] 0.025% [...] cosmetic Pas, insurance will not cover. Archived [facility]: [id number] - Rx #: [id number] documented in this encounter Plan of Treatment Upcoming Encounters Date Type Department Care Team (Late st Contact Info) Description 06/28/2024 9:30 AM EST Office Visit Internal Medicine at [facility] [address] [place] [phone] Daryn Garrett MD [facility] DR LILI AZEVEDO [place] [address] 10/02/2024 1:00 PM EDT Office [place] [address] Juanpablo Hernandez MD [facility] [place] [address] 01/30/2025 1:30 PM EDT Laboratory Appointment Lab [place] [facility] [place] [address] [place] [phone] 01/30/2025 3:[address] Scan at [place] [phone] Arturo Cordero MD [facility] HEMATOLOGY [place] [address] 01/30/2025 4:15 PM EDT Office Visit Hematology [place] [phone] Arturo Cordero MD [facility] DR HEMATOLOGY [place] [address] Scheduled Procedures Name Priority Associated Diagnoses Date/Ti me EGD, UPPER GI ENDOSCOPY (WRV U 2.09) Irritable bowel syndrome with constipation COLONOSCOPY, DIAGNOSTIC (WRV U 3.26) Irritable bowel syndrome with constipation documented as of this encounter Visit Diagnoses Not on filedocumented in this encounter Care Teams Dean Of Student Services Relationship Specialty Start Date End Date Rodney Padilla MD PCP - General 07/18/22 04/09/24 documented as of this encounter
--- OUTSIDE RECORDS SUMMARY | 2024-06-07 13:31 | XMS_ITS | Encounter Summary ---
Author Organization [facility] Address [facility] [place] [address] Care Team Providers Care Learning And Development Intern Name Role Phone Rodney Padilla MD [...] EST Office Visit Internal Medicine at [facility] [address] [place] [address] Dayrn Garrett MD [facility] [address] LILI [place] [address] 10/02/2024 1:00 PM EDT Office [place] [phone] Juanpablo Hernandez MD [facility] [address] 01/30/2025 1:30 PM EDT Laboratory Appointment Lab at [facility] [place] On[place] [address] [place] [phone] 01/30/2025 3:[address] [place] [address] Arturo Cordero MD [facility] [place] [address] 01/30/2025 4:15 PM EDT Office Visit Hematology [place] [address] Arturo Cordero MD [facility] DR [place] [address] Scheduled Procedures Name Priority Associated Diagnoses Date/Ti me EGD, UPPER GI ENDOSCOPY (WRV U 2.09) Irritable bowel syndrome with constipation COLONOSCOPY, DIAGNOSTIC (WRV U 3.26) Irritable bowel syndrome with constipation documented as of this encounter Visit Diagnoses Not on filedocumented in this encounter Care Teams Learning And Development Intern Relationship Specialty Start Date End Date Rodney Padilla MD PCP - General 07/18/22 04/09/24 documented as of this encounter
--- OUTSIDE RECORDS SUMMARY | 2024-06-07 13:31 | XMS_ITS | Encounter Summary ---
Author Organization [facility] Address One [facility] [place] [address] Care Team Providers Care Press Hand Name Role Phone Rodney Padilla MD Primary Care Provider Reason for Visit * Reason Comments Diabetes Encounter Details Date Type Department Care Team (Late st Contact Info) Description 08/18/2023 9:45 AM EST Clinical Support Family Medicine at [facility] [address] [place] [address] Julia Low, [facility] Type [...] this encounter Progress Notes * Julia Low [facility] - 08/18/2023 9:45 AM EST Clinical Pharmacist [...] Provider/date: Rodney Padilla MD 06/14/21 Tamera Khan INSTRUCTOR WATCH ASSEMBLY Health Beliefs and Attitudes Feelings about having [...] are performed sporadically. 3 x weekly. Uses [employer] Waitress testing supplies Interested in Dexcom G7, report approved by insurance. Needs to call SHERPA assistant [facility] to get an update on shipping Before Brkfast After Brkfast Before Lunch After Lunch Before Supper 5-b 260 6-Aug 260 167 7-Aug 218 217 212 8-Aug 177 192 185 9-Aug 219 AM PHI PM Average 205 205 260 219 167 Lowest 177 192 260 185 167 Highest 219 217 260 260 167 Daily Avg 211 eA1c 9.32908 Prior Averages: 08/26/21 09/09/21 09/24/21 11/14/21 11/03/22 12/01/22 01/03/23 Daily Avg 157 168 131 138 175 153 176 eA1c 8.57663 8.46 7.20 7.44 8.7 7.95 8.75 Acute [...] diabetes mellitus 3 mL 11 Blood-Glucose Sensor ([employer]ak [employer]com G7 Sensor) Device 1 Device by [facility].(Non-Drug; Combo Route) route every10 days. 3 each 11 lamoTRIgine (LaMICtal) 100 mg tablet Take 1.5 tablets by mouth daily. 90 tablet 3 umeclidinium-vilanteroL (Anoro Ellipta) 62.5-25 mcg/actuation Disk with Device Inhale 1 Inhalation into the lungs daily. 3 each 3 inhalational spacing device (Hesham Aerosol Rains Enhancer) Spacer 1 each by [facility] [...] tablet 5 fluticasone propionate (Flonase) 50 mcg/actuation [place], Suspension 1 spray by Each Nare route [...] of insulin - Blood-Glucose Meter,Continuous (Dexcom G7 Inseminator) Misc; 1 Device by Misc.(Non-Drug; Combo Route) [...] AM EST Office Visit Internal Medicine at [address] [address] Daryn Garrett MD [facility] DR LILI [place] [address] 10/02/2024 1:00 PM EDT Office [place] [phone] Juanpablo Hernandez MD [facility] [place] [address] 01/30/2025 1:30 PM EDT Laboratory Appointment Lab at [facility] [place] On[place] [address] [place] [phone] 01/30/2025 3:[address] [place] [phone] Arturo Cordero MD [facility] DR HEMATOLOGY AND ONCOLOGY [place], [place] [phone] 01/30/2025 4:15 PM EDT Office Visit Hematology [place] [address] Arturo Cordero MD [facility] DR [place] [address] Scheduled Procedures Name Priority Associated Diagnoses Date/Ti me EGD, UPPER GI ENDOSCOPY (WRV U 2.09) Irritable bowel syndrome with constipation COLONOSCOPY, DIAGNOSTIC (WRV U 3.26) Irritable bowel syndrome with constipation documented as of this encounter Visit Diagnoses Diagnosis Type 2 diabetes mellitus without long-term current use of insulin- Primary documented in this encounter Care Teams Press Hand Relationship Specialty Start Date End Date Rodney Padilla MD PCP - General 07/18/22 04/09/24 documented as of this encounter
--- OUTSIDE RECORDS SUMMARY | 2024-06-07 13:31 | XMS_ITS | Encounter Summary ---
Author Organization [facility] Address [facility] [place] [address] Care Team Providers Care Mill Tender Second Operator Name Role Phone Rodney Padilla MD [...] AM EST Office Visit Internal Medicine at [facility] [address] [place] [address] Daryn Garrett MD [facility] [address] LILI [place] [address] 10/02/2024 1:00 PM EDT Office [place] [phone] Juanpablo Hernandez MD [facility] [address] 01/30/2025 1:30 PM EDT Laboratory Appointment Lab at [facility] Hematology Oncology [address] [place] [phone] 01/30/2025 3:[address] [place] [address] Arturo Cordero MD [facility] [place] [address] 01/30/2025 4:15 PM EDT Office Visit Hematology [place] [address] Arturo Cordero MD [facility] DR [place] [address] Scheduled Procedures Name Priority Associated Diagnoses Date/Ti me EGD, UPPER GI ENDOSCOPY (WRV U 2.09) Irritable bowel syndrome with constipation COLONOSCOPY, DIAGNOSTIC (WRV U 3.26) Irritable bowel syndrome with constipation documented as of this encounter Visit Diagnoses Not on filedocumented in this encounter Care Teams Mill Tender Second Operator Relationship Specialty Start Date End Date Rodney Padilla MD PCP - General 07/18/22 04/09/24 documented as of this encounter
--- OUTSIDE RECORDS SUMMARY | 2024-06-07 13:31 | XMS_ITS | Encounter Summary ---
Author Organization [facility] Address [facility] [place] [address] Care Team Providers Care Welding Tester Name Role Phone Rodney Padilla MD Primary Care Provider [phone] Reason for Visit * Reason Onset Date [...] Description 07/05/2023 Nurse Triage Family Medicine at [facility] [address] [place] [address] Kaela Rodriges facsimile operator Problem (Dr. Padilla wanted her to call [...] - 07/05/2023 4:46 PM EST Copied from [facility] #[id number]. Topic: Triage - Triage >> Jul 05, 2023 4:29 PM Jackie Zuluaga wrote: Symptom: Appetite Change PCP: RODNEY PADILLA Additional Comments: Patient says that she can't eat while on dulaglutide (Trulicity) 0.75 mg/0.5 mL Pen Injector [[id number]]. She said that it is effecting her gastrointestinal issues. Patient said that she saw a dietitian to check her blood sugar. She would like to speak with someone about this. Please call patient. documented in this encounter Plan of Treatment Upcoming Encounters Date Type Department Care Team (Late st Contact Info) Description 06/28/2024 9:30 AM EST Office Visit Internal Medicine at [address] [phone] Daryn Garrett MD [facility] DR LILI AZEVED[place] [address] 10/02/2024 1:00 PM EDT Office [place] [address] Juanpablo Hernandez MD [facility] [place] [address] 01/30/2025 1:30 PM EDT Laboratory Appointment Lab at [facility] Hematology Oncology [address] [place] [phone] 01/30/2025 3:[address] Scan at [place] [phone] Arturo Cordero MD [facility] HEMATOLOGY [place] [address] 01/30/2025 4:15 PM EDT Office Visit Hematology [place] [phone] Arturo Cordero MD [facility] DR HEMATOLOGY [place] [address] Scheduled Procedures Name Priority Associated Diagnoses Date/Ti me EGD, UPPER GI ENDOSCOPY (WRV U 2.09) Irritable bowel syndrome with constipation COLONOSCOPY, DIAGNOSTIC (WRV U 3.26) Irritable bowel syndrome with constipation documented as of this encounter Visit Diagnoses Not on filedocumented in this encounter Care Teams Welding Tester Relationship Specialty Start Date End Date Rodney Padilla MD PCP - General 07/18/22 04/09/24 documented as of this encounter
--- OUTSIDE RECORDS SUMMARY | 2024-06-07 13:31 | XMS_ITS | Encounter Summary ---
Author Organization [facility] [place] [address] Care Team Providers Care Security Chief Museum Name Role Phone Rodney Padilla MD Primary Care Provider [phone] Encounter Details Date Type Department Care Team (Latest Contact Info) Description 08/18/2023 12:40 PM EST - 08/18/2023 11:59 PM EST Hospital Encounter [place] [address] Chronic obstructive pulmonary disease, unspecified COPD type [...] at Noon. 08/17/2023 Blood-Glucose Meter,Continuous (Dexcom G7 Jewel Hole Cornerer) MiscIndications:Type 2 diabetes mellitus with hyperglycemia, without long-term current use of insulin 1 Device by [facility].(Non-Drug; Combo Route) route continuous. 08/18/2023 Blood-Glucose Sensor (Dexcom G7 Sensor) DeviceIndications:Typ e 2 diabetes mellitus with hyperglycemia, without long-term current use of insulin 1 Device by [facility].(Non-Drug; Combo Route) route every 10 days. 3 each 11 08/18/2023 inhalational spacing device (Hesham Aerosol [place] Enhancer) SpacerIndications:Chr onic obstructive pulmonary disease, unspecified COPD type 1 each by [facility].(Non-Drug; Combo Route) route as needed. 1 each [...] 09/26/2022 09/19/2023 fluticasone propionate (Flonase) 50 mcg/actuation [place], Suspension 1 spray by Each Nare route 2 times daily. 16 g 11 09/26/2022 09/28/2023 budesonide-formoteroL (Symbicort) 80-4.5 mcg/actuation HFA Aerosol InhalerIndications:Si mple chronic bronchitis Inhale 2 puffs into the lungs 2 times daily. 3 each 3 06/24/2022 08/29/2023 LORazepam (Ativan) 0.5 mg TabletIndications:anx iety Take [...] AM EST Office Visit Internal Medicine at [address] [place] [address] Daryn Garrett MD [facility] DR LILI [place] [address] 10/02/2024 1:00 PM EDT Office Visit [place] [phone] Juanpablo Hernandez MD [facility] [place] [address] 01/30/2025 1:30 PM EDT Laboratory Appointment Lab at [facility] [place] [address] [place] [phone] 01/30/2025 3:[address] [place] [address] Arturo Cordero MD [facility] [place] [address] 01/30/2025 4:15 PM EDT Office Visit Hematology [place] [address] Arturo Cordero MD [facility] DR [place] [address] Scheduled Procedures Name Priority Associated Diagnoses Date/Ti [...] PFT FEV1/FVC Pre-BD Z-Score -0.96 COMPAS PFT AEE21-99 Actual Pre-BD 0.88 % COMPAS PFT HCR87-69 Predicted 2.06 % COMPAS PFT ECK26-52 Pre-BD % of Predicted 43 % COMPAS PFT AOW59-20 Pre-BD Z-Score -1.92 COMPAS PFT DLCO Hb [...] type documented in this encounter Care Teams Security Chief Museum Relationship Specialty Start Date End Date Rodney Padilla MD PCP - General 07/18/22 04/09/24 documented as of this encounter
--- OUTSIDE RECORDS SUMMARY | 2024-06-07 13:31 | XMS_ITS | Encounter Summary ---
Author Organization [facility] Address [facility] [address] Care Team Providers Care Wire Preparation Worker Name Role Phone Rodney Padilla MD [...] AM EST Office Visit Internal Medicine at [facility] [address] [place] [address] Daryn Garrett MD [facility] DR LILI [place] [address] 10/02/2024 1:00 PM EDT Office [place] [phone] Juanpablo Hernandez MD [facility] [place] [address] 01/30/2025 1:30 PM EDT Laboratory Appointment Lab at [facility] Hematology Oncology [address] [place] [phone] 01/30/2025 3:[address] [place] [address] Arturo Cordero MD [facility] [place] [address] 01/30/2025 4:15 PM EDT Office Visit [place] [address] Arturo Cordero MD [facility] DR [place] [address] Scheduled Procedures Name Priority Associated Diagnoses Date/Ti me EGD, UPPER GI ENDOSCOPY (WRV U 2.09) Irritable bowel syndrome with constipation COLONOSCOPY, DIAGNOSTIC (WRV U 3.26) Irritable bowel syndrome with constipation documented as of this encounter Visit Diagnoses Not on filedocumented in this encounter Care Teams Wire Preparation Worker Relationship Specialty Start Date End Date Rodney Padilla MD PCP - General 07/18/22 04/09/24 documented as of this encounter
--- OUTSIDE RECORDS SUMMARY | 2024-06-07 13:31 | XMS_ITS | Encounter Summary ---
Author Organization [facility] [place] [address] Care Team Providers Care Street Supervisor Name Role Phone Rodney Padilla MD Primary Care Provider [phone] Reason for Referral * Diagnostic Test (Routine) - Closed Specialty Diagnoses / Procedures Referred By Contac t Referred To Contact Radiology Diagnoses Malignant melanoma of conjunctiva, left Procedures CT Neck Soft Tissue w Contrast (Generic) Tee Lara MD [facility] DR HEMATOLOGY/[place] [address] [facility] [place] [address] Referral ID Status Reason Start Date Expiration Date V isits Requested Visits Authorized [id number] Closed Specialty Service Requested 08/03/2023 01/31/2025 1 1 * Diagnostic Test (Routine) - Closed Specialty Diagnoses / Procedures Referred By Contac t Referred To Contact Radiology Diagnoses Malignant melanoma of conjunctiva, left Procedures CT Chest Abdomen Pelvis w Contrast (Generic) Tee Lara MD [facility] DR HEMATOLOGY/[place] [address] [facility] [place] [address] Referral ID Status Reason Start Date Expiration Date V isits Requested Visits Authorized [id number] Closed Specialty Service Requested 08/03/2023 01/31/2025 1 1 Reason for Visit * Reason Comments Follow-up Encounter Details Date Type Department Care Team (Cornelius st Contact Info) Description 08/03/2023 10:15 AM EST Office Visit Hematology [place] [address] Arturo Cordero MD [facility] DR HEMATOLOGY [place] [address] Nidhi Ceballos APRN [facility] [place] [address] Malignant melanoma of conjunctiva, left; Renal cell [...] management - fall 2018: saw a new sheltered workshop executive director and was referred to Dr. 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 Medina - 03/31/2020: saw her sheltered workshop executive director Dr. Hernandez and was noted to [...] Asthma uses inhalerswith good effect Atherosclerosis of [place] [...] by Juanpablo Hernandez MD at [facility] OSC PRO EXCIS CORNEA LESN Left 05/14/2020 EXCISION OF LESION, CORNEA, EXCEPT PTERYGIUM (WRVU 7.5) performed by Juanpablo Hernandez MD at [facility] OSC PRO LAP, PARTIAL NEPHRECTOMY Left 06/28/2019 LAPAROSCOPY, PARTIAL NEPHRECTOMY, ROBOTIC ASSIST (WRVU 27.41) performed by Avila Medina MD at [facility] MAIN OR PRO PLACE AMNIOTIC MEMBRANE OCULAR SURFACE;SINGLE LAYER SUTURED Left 05/14/2020 PLACEMENT OF AMNIOTIC MEMBRANE ON THE OCULAR SURFACE,SINGLE LAYER,SUTURED (WRVU 2.5) performed by Juanpablo Hernandez MD at [facility] OSC MEDS: Alcohol Swabs, Blood-Glucose Sensor, [...] with significant other 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, 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 [...] Tee Lara MD PGY 4 Hem/Onc Fellow [facility] ATTENDING NOTE: Clinically she is doing fairly [...] AM EST Office Visit Internal Medicine at [facility] [place] [phone] Daryn Garrett MD [facility] DR LILI AZEVEDO [place] [address] 10/02/2024 1:00 PM EDT Office [place] [phone] Juanpablo Hernandez MD [facility] [place] [address] 01/30/2025 1:30 PM EDT Laboratory Appointment Lab at [facility] Hematology Oncology [address] [place] [phone] 01/30/2025 3:[address] [place] [phone] Arturo Cordero MD [facility] DR HEMATOLOGY [place] [address] 01/30/2025 4:15 PM EDT Office Visit Hematology [place] [phone] Arturo Cordero MD [facility] DR HEMATOLOGY [place] [address] Scheduled Procedures Name Priority Associated Diagnoses Date/Ti me EGD, UPPER GI ENDOSCOPY (WRV U 2.09) Irritable bowel syndrome with constipation COLONOSCOPY, DIAGNOSTIC (WRV U 3.26) Irritable bowel syndrome with constipation documented as of this encounter Results * CT Neck Soft Tissue w Contrast (Generic) (02/01/2024 10:24 AM EDT) [employer] WORKSTATION ID [id number] RAD Anatomical Region Laterality Modality Neck, Head [...] who have questions please contact the health janitor caretaker that requested your imaging first. ? Electronically signed by: Dipika Palacios [facility] ([phone]), at 02/02/2024 4:32 PM Narrative 02/02/2024 4:32 [...] patients who have questions please contactthe health janitor caretaker that requested your imaging first. Arturo Cordero MD IMG CT ORDERABLES * CT Chest Abdomen Pelvis w Contrast (Generic) (02/01/2024 10:24 AM EDT) WORKSTATION ID [id number] RAD Anatomical Region Laterality Modality Abdomen, Pelvis [...] who have questions please contact the health janitor caretaker that requested your imaging first. ? Electronically signed by: Leo Camilo MD, [facility] ([phone]), at 02/02/2024 9:52 AM Narrative 02/02/2024 9:52 [...] patients who have questions please contactthe health janitor caretaker that requested your imaging first. Arturo Cordero MD [facility] ORDERABLES * Lactate Dehydrogenase (02/01/2024 8:19 AM EDT) Lactate Dehydrogenase 195 110 - 220 unit/L [facility] Blood 02/01/2024 8:19 AM EDT 02/01/2024 8:39 AM EDT Narrative Resulting Agency Comment Spec In Lab Arturo Cordero MD CHEMISTRY ORDERABLES [facility] [place] [address] * Comprehensive metabolic panel (non-fasting) (02/01/2024 8:19 [...] CHEMISTRY ORDERABLES [facility] [place] [address] documented in this encounter Visit Diagnoses Diagnosis Malignant melanoma of conjunctiva, left Renal cell cancer, left Lung nodule Solitary pulmonary nodule Malignant melanoma of conjunctiva, left documented in this encounter Care Teams Street Supervisor Relationship Specialty Start Date End Date Rodney Padilla MD PCP - General 07/18/22 04/09/24 documented as of this encounter
--- OUTSIDE RECORDS SUMMARY | 2024-06-07 13:31 | XMS_ITS | Encounter Summary ---
Author Organization [facility] Address [facility] [place] [address] Care Team Providers Care Figure Skater Name Role Phone Rodney Padilla MD Primary Care Provider Reason for Visit * Reason Onset Date Comments Diabetes 05/29/2023 Encounter Details Date Type Department Care Team (Late st Contact Info) Description 05/29/2023 9:45 AM EST Telephone Family Medicine at [facility] [address] [place] [phone] Julia Low, [facility] Diabetes Social History Tobacco Use Types Packs/Day [...] withthis caller. Also is following with a booster pump oiler but admits her BGs are not currently [...] Low RPH Visit Type: Telephone Call & [facility] message Subjective: Patient ID: Alize Gramajo is a 62 y.o. female. Phone call completed today for medication follow up. Caller: patient Reason for call: reivew repeated A1c result, reconnect for DM followup LVM and sent [facility] message requesting pt return call to [...] AM EST Office Visit Internal Medicine at [address] [address] Daryn Garrett MD [facility] DR LILI [place] [address] 10/02/2024 1:00 PM EDT Office [place] [address] Juanpablo Hernandez MD [facility] [place] [address] 01/30/2025 1:30 PM EDT Laboratory Appointment Lab at [facility] Hematology Oncology [address] [place] [phone] 01/30/2025 3:[address] [place] [address] Arturo Cordero MD [facility] [address] [place] [address] 01/30/2025 4:15 PM EDT Office Visit H[place]ology [place] [address] Arturo Cordero MD [facility] DR [place] [address] Scheduled Procedures Name Priority Associated Diagnoses Date/Ti me EGD, UPPER GI ENDOSCOPY (WRV U 2.09) Irritable bowel syndrome with constipation COLONOSCOPY, DIAGNOSTIC (WRV U 3.26) Irritable bowel syndrome with constipation documented as of this encounter Visit Diagnoses Not on filedocumented in this encounter Care Teams Figure Skater Relationship Specialty Start Date End Date Rodney Padilla MD PCP - General 07/18/22 04/09/24 documented as of this encounter
--- OUTSIDE RECORDS SUMMARY | 2024-06-07 13:31 | XMS_ITS | Encounter Summary ---
Author Organization [facility] [address] Care Team Providers Care Substance Abuse Rn Name Role Phone Rodney Padilla MD Primary Care Provider [phone] Reason for Referral * Diagnostic Test (Routine) - Closed Specialty Diagnoses / Procedures Referred By Contac t Referred To Contact Radiology Diagnoses Malignant melanoma of conjunctiva, left Procedures CT Neck Soft Tissue w Contrast (Generic) Arturo Cordero MD [facility] DR [place] [address] [facility] [place] [address] Referral ID Status Reason Start Date Expiration Date V isits Requested Visits Authorized [id number] Closed Specialty Service Requested 12/29/2022 06/30/2024 1 1 * Diagnostic Test (Routine) - Closed Specialty Diagnoses / Procedures Referred By Contac t Referred To Contact Radiology Diagnoses Malignant melanoma of conjunctiva, left Renal cell cancer, left Procedures CT Chest Abdomen Pelvis w Contrast (Generic) Arturo Cordero MD [facility] DR [place] [address] [facility] [place] [address] Referral ID Status Reason Start Date Expiration Date V isits Requested Visits Authorized [id number] Closed Specialty Service Requested 12/29/2022 06/30/2024 1 1 Reason for Visit * Diagnostic Test (Routine) - Closed Specialty Diagnoses / Procedures Referred By Contac t Referred To Contact Radiology Diagnoses Malignant melanoma of conjunctiva, left Renal cell cancer, left Procedures CT Chest Abdomen Pelvis w Contrast (Generic) Arturo Cordero MD [facility] DR [place] [address] [facility] [place] [address] Referral ID Status Reason Start Date Expiration Date V isits Requested Visits Authorized [id number] Closed Specialty Service Requested 12/29/2022 06/30/2024 1 1 Encounter Details Date Type Department Care Team (Latest Contact Info) Description 08/03/2023 7:35 AM EST - 08/03/2023 7:44 AM EST Hospital [place] [address] Arturo Cordero MD [facility] DR [place] [address] Malignant melanoma of conjunctiva, left; [...] End Date inhalational spacing device (Hesham Aerosol Parker Enhancer) SpacerIndications:Chr onic obstructive pulmonary disease, unspecified [...] 81 mg by mouth daily. Blood-Glucose Sensor ([employer] G7 Sensor) DeviceIndications:Typ e 2 diabetes mellitus with hyperglycemia, without long-term current use of insulin 1 Device by [facility].(Non-Drug; Combo Route) route [...] 09/26/2022 09/19/2023 fluticasone propionate (Flonase) 50 mcg/actuation [place], Suspension 1 spray by Each Nare route [...] AM EST Office Visit Internal Medicine at [facility] [address] [place] [phone] Daryn Garrett MD [facility] DR LILI [place] [address] 10/02/2024 1:00 PM EDT Office [place] [phone] Juanpablo Hernandez MD [facility] [address] 01/30/2025 1:30 PM EDT Laboratory Appointment Lab at [facility] Hematology Oncology [address] [place] [phone] 01/30/2025 3:[address] [place] [phone] Arturo Cordero MD [facility] [place] [address] 01/30/2025 4:15 PM EDT Office Visit Hematology [place] [address] Arturo Cordero MD [facility] [place] [address] Scheduled Procedures Name Priority Associated Diagnoses Date/Ti [...] questions please contact the health child care center assistant director that requested your imaging first. ? [...] The orbits are not included within the [id number]-[id number]. No masses along the visualized upper aerodigestive tract. The lung apices are clear. Normal parotid and submandibular glands. No lymphadenopathy. No aggressive osseous lesions. Normal thyroid gland. Procedure Note Pastel, Ludwig, MD - 08/04/2023 EXAMINATION: CT NECK SOFT TISSUE W CONTRAST (GENERIC) CLINICAL HISTORY: Melanoma, stage >= IIB, monitor; Left eye conjunctivamelanoma treated in May 2020, last CT in January 2023 TECHNIQUE: CT neck performed after the intravenous administration of contrast. . 110cc of Omnipaque 350 administered. COMPARISON: CT neck 01/06/2023. FINDINGS: The orbits are not included within the [id number]-go-wcnj. No masses alongthe visualized upper aerodigestive tract. [...] have questions please contactthe health child care center assistant director that requested your imaging first. Arturo Cordero [...] questions please contact the health child care center assistant director that requested your imaging first. ? [...] have questions please contactthe health child care center assistant director that requested your imaging first. Electronically signed by: Zain Izaguirre MD, [facility]([phone]), at 08/03/2023 4:55 PM Arturo Cordero MD [...] mLs documented in this encounter Care Teams Substance Abuse Rn Relationship Specialty Start Date End Date Rodney Padilla MD PCP - General 07/18/22 04/09/24 documented as of this encounter
--- OUTSIDE RECORDS SUMMARY | 2024-06-07 13:31 | XMS_ITS | Encounter Summary ---
Author Organization [facility] [place] [address] Care Team Providers Care Associate Account Director Name Role Phone Rodney Padilla MD Primary Care Provider Encounter Details Date Type Department Care Team (Late st Contact Info) Description 08/10/2023 Telephone Family Medicine at [facility] [address] [place] [phone] Rodney Padilla MD [address] [facility] [place] [address] Social History Tobacco Use Types Packs/Day [...] Patient identified by Full Name and with [facility] staff. Provided update that this RN would be faxing Clinic Notes documenting information they requested about patient's insulin. Previously given fax number [phone] in this message not correct when attempted to confirm withstaff. New fax number given = [phone]. Requested Clinic Notes faxed to new fax number. Reference Number = [id number] * Telephone Encounter - Ade Irene - 08/10/2023 3:02 PM EST Maryana with [facility] [employer] calling in looking for an update on this. Please call back to discuss. * Telephone Encounter - Jade Kruse MA - 08/10/2023 12:33 PM EST Copied from [facility] #[id number]. Topic: Generic Non-Symptom Based - Generic Call [...] can be faxed back to fax # [phone] documented in this encounter Plan of Treatment Upcoming Encounters Date Type Department Care Team (Late st Contact Info) Description 06/28/2024 9:30 AM EST Office Visit Internal Medicine at [address] [phone] Daryn Garrett MD [facility] DR LILI [place] [address] 10/02/2024 1:00 PM EDT Office [place] [phone] Juanpablo Hernandez MD [facility] [place] [address] 01/30/2025 1:30 PM EDT Laboratory Appointment Lab at [facility] Hematology Oncology [address] [place] [phone] 01/30/2025 3:[address] [place] [phone] Arturo Cordero MD [facility] [place] [address] 01/30/2025 4:15 PM EDT Office Visit H[place]ology [place] [address] Arturo Cordero MD [facility] [address] [place] [address] Scheduled Procedures Name Priority Associated Diagnoses Date/Ti me EGD, UPPER GI ENDOSCOPY (WRV U 2.09) Irritable bowel syndrome with constipation COLONOSCOPY, DIAGNOSTIC (WRV U 3.26) Irritable bowel syndrome with constipation documented as of this encounter Visit Diagnoses Diagnosis Type 2 diabetes mellitus without long-term current use of insulin documented in this encounter Care Teams Associate Account Director Relationship Specialty Start Date End Date Rodney Padilla MD PCP - General 07/18/22 04/09/24 documented as of this encounter
--- OUTSIDE RECORDS SUMMARY | 2024-06-07 13:31 | XMS_ITS | Encounter Summary ---
Author Organization [facility] [place] [address] Care Team Providers Care Environmental Economist Name Role Phone Rodney Padilla MD Primary Care Provider Reason for Visit * Reason Comments Melanoma Malignant melanoma o f conjunctiva, left Encounter Details Date Type Department Care Team (Late st Contact Info) Description 07/26/2023 12:30 PM EST Office [place] [address] Juanpablo Hernandez MD [facility] [place] [address] Malignant melanoma of conjunctiva, left; Type 2 [...] AM EST Office Visit Internal Medicine at [facility] [address] [place] [address] Daryn Garrett MD [facility] DR LILI [place] [address] 10/02/2024 1:00 PM EDT Office Visit Ophthalmology at [place] [phone] Juanpablo Hernandez MD [facility] [place] [address] 01/30/2025 1:30 PM EDT Laboratory Appointment Lab at [facility] Hematology Oncology [address] [place] [phone] 01/30/2025 3:[address] Scan at [place] [phone] Arturo Cordero MD [facility] DR HEMATOLOGY [place] [address] 01/30/2025 4:15 PM EDT Office Visit Hematology and Oncology at [place] [phone] Arturo Cordero MD [facility] DR [place]ATOLOG[place] [address] Scheduled Procedures Name Priority Associated Diagnoses Date/Ti me EGD, UPPER GI ENDOSCOPY (WRV U 2.09) Irritable bowel syndrome with constipation COLONOSCOPY, DIAGNOSTIC (WRV U 3.26) Irritable bowel syndrome with constipation documented as of this encounter Visit Diagnoses Diagnosis Malignant melanoma of conjunctiva, left Type 2 diabetes mellitus without long-term current use of insulin documented in this encounter Care Teams Environmental Economist Relationship Specialty Start Date End Date Rodney Padilla MD PCP - General 07/18/22 04/09/24 documented as of this encounter
--- OUTSIDE RECORDS SUMMARY | 2024-06-07 13:31 | XMS_ITS | Encounter Summary ---
Author Organization [facility] Address [facility] [place] [address] Care Team Providers Care Restaurant Maintenance Technician Name Role Phone Rodney Padilla MD [...] Medicine at [facility] [address] [place] [address] Daryn Garrett MD [facility] DR LILI [place] [address] 10/02/2024 1:00 PM EDT Office [place] [phone] Juanpablo Hernandez MD [facility] [address] 01/30/2025 1:30 PM EDT Laboratory Appointment Lab at [facility] Hematology Oncology [address] [place] [phone] 01/30/2025 3:[address] [place] [place] [phone] Arturo Cordero MD [facility] [place] [address] 01/30/2025 4:15 PM EDT Office Visit [place] [address] Arturo Cordero MD [facility] DR [place] [address] Scheduled Procedures Name Priority Associated Diagnoses Date/Ti me EGD, UPPER GI ENDOSCOPY (WRV U 2.09) Irritable bowel syndrome with constipation COLONOSCOPY, DIAGNOSTIC (WRV U 3.26) Irritable bowel syndrome with constipation documented as of this encounter Visit Diagnoses Not on filedocumented in this encounter Care Teams Restaurant Maintenance Technician Relationship Specialty Start Date End Date Rodney Padilla MD PCP - General 07/18/22 04/09/24 documented as of this encounter
--- OUTSIDE RECORDS SUMMARY | 2024-06-07 13:31 | XMS_ITS | Encounter Summary ---
[place] [address] Care Team Providers Care Housing Management Representative Name Role Phone Rodney Padilla MD Primary Care Provider [phone] Encounter Details Date Type Department Care Team (Late st Contact Info) Description 06/23/2023 Telephone [place] [phone] Andressa Hernandez Social History Tobacco Use Types [...] 06/23/2023 4:59 PM EST Copied from CRM #[id number]. Topic: Specialty Dept CRMs - Generic Call >> Jun 20, 2023 3:00 PM Cheri Quinones wrote: Specialist: Rodney Padilla Relationship (if other than patient-full name): Maze Reason for Call: Scheduled PFT 08/18 at 1 PM documented in this encounter Plan of Treatment Upcoming Encounters Date Type Department Care Team (Late st Contact Info) Description 06/28/2024 9:30 AM EST Office Visit Internal Medicine at [facility] [address] [place] [address] Daryn Garrett MD [facility] [address] LILI [place] [address] 10/02/2024 1:00 PM EDT Office Visit [place] [address] Juanpablo Hernandez MD [facility] [place] [address] 01/30/2025 1:30 PM EDT Laboratory Appointment Lab at [facility] Hematology Oncology [address] [place] [phone] 01/30/2025 3:[address] [place] [phone] Arturo Cordero MD [facility] DR H[place]Y [place] [address] 01/30/2025 4:15 PM EDT Office Visit Hematology [place] [phone] Arturo Cordero MD [facility] DR HEMAT[place]Y [place] [address] Scheduled Procedures Name Priority Associated Diagnoses Date/Ti me EGD, UPPER GI ENDOSCOPY (WRV U 2.09) Irritable bowel syndrome with constipation COLONOSCOPY, DIAGNOSTIC (WRV U 3.26) Irritable bowel syndrome with constipation documented as of this encounter Visit Diagnoses Not on filedocumented in this encounter Care Teams Housing Management Representative Relationship Specialty Start Date End Date Rodney Padilla MD PCP - General 07/18/22 04/09/24 documented as of this encounter
--- OUTSIDE RECORDS SUMMARY | 2024-06-07 13:31 | XMS_ITS | Encounter Summary ---
Author Organization [facility] [place] [address] Care Team Providers Care Class B Driver Name Role Phone Rodney Padilla MD Primary Care Provider Reason for Visit * Reason Onset Date Comments Medication Refill 06/13/2023 Encounter Details Date Type Department Care Team (Late st Contact Info) Description 06/13/2023 Refill Family Medicine at [facility] [address] [place] [address] Rodney Padilla MD [address] [place] [address] [place] [address] Essential hypertension Social History [...] 10:54 AM EST Prescription Renewal Request Name: Alizereinaldo Gramajo : 1960 Prescription(s) Requested: Requested Prescriptions [...] Rodney Padilla MD Pharmacy Name & Location: [facility] [address] [place] [address] Caller would like clinic to reach out [...] AM EST Office Visit Internal Medicine at [facility] [address] [place] [address] Daryn Garrett MD [facility] DR LILI [place]ER [place] [address] 10/02/2024 1:00 PM EDT Office Visit Ophthalmology at [place] [phone] Juanpablo Hernandez MD [facility] [address] 01/30/2025 1:30 PM EDT Laboratory Appointment Lab at [facility] Hematology Oncology [address] [place], [place] [phone] 01/30/2025 3:[address] Scan at [place] [phone] Arturo Cordero MD [facility] DR HEMATOLOGY [place] [address] 01/30/2025 4:15 PM EDT Office Visit Hematology and Oncology at [place] [phone] Arturo Cordero MD [facility] DR HEMATOLOGY [place] [address] Scheduled Procedures Name Priority Associated Diagnoses Date/Ti me EGD, UPPER GI ENDOSCOPY (WRV U 2.09) Irritable bowel syndrome with constipation COLONOSCOPY, DIAGNOSTIC (WRV U 3.26) Irritable bowel syndrome with constipation documented as of this encounter Visit Diagnoses Diagnosis Essential hypertension Unspecified essential hypertension documented in this encounter Care Teams Class B Driver Relationship Specialty Start Date End Date Rodney Padilla MD PCP - General 07/18/22 04/09/24 documented as of this encounter
--- OUTSIDE RECORDS SUMMARY | 2024-06-07 13:31 | XMS_ITS | Encounter Summary ---
Author Organization [facility] Address [facility] [place] [address] Care Team Providers Care Dairy Powder Mixer Operator Name Role Phone Daryn Garrett MD Primary Care Provider Reason for Visit * Reason Comments Medication Refill Encounter Details Date Type Department Care Team (Late st Contact Info) Description 05/16/2023 Refill Family Medicine at [facility] [address] [place] [address] Tamera Khan APRN [facility] DR LILI WALKER-[place] [address] Type 2 diabetes mellitus with hyperglycemia, without [...] AM EST Office Visit Internal Medicine at [facility] [address] [place] [address] Daryn Garrett MD [facility] DR LILI WALKER [place] [address] 10/02/2024 1:00 PM EDT Office [place] [phone] Juanpablo Hernandez MD [facility] [place] [address] 01/30/2025 1:30 PM EDT Laboratory Appointment Lab at [facility] [place]ology Oncology [address] [place] [phone] 01/30/2025 3:[address] [place] [phone] Arturo Cordero MD [facility] DR HEMATOLOGY [place] [address] 01/30/2025 4:15 PM EDT Office Visit Hematology [place] [address] Arturo Cordero MD [facility] DR HEMATOLOGY [place] [address] Scheduled Procedures Name Priority Associated Diagnoses Date/Ti me EGD, UPPER GI ENDOSCOPY (WRV U 2.09) Irritable bowel syndrome with constipation COLONOSCOPY, DIAGNOSTIC (WRV U 3.26) Irritable bowel syndrome with constipation documented as of this encounter Visit Diagnoses Diagnosis Type 2 diabetes mellitus with hyperglycemia, without long-term current use of insulin documented in this encounter Care Teams Dairy Powder Mixer Operator Relationship Specialty Start Date End Date Daryn Garrett MD [facility] DR LILI WALKER [place] [address] PCP - General 04/10/24 documented as of this encounter
--- OUTSIDE RECORDS SUMMARY | 2024-06-07 13:31 | XMS_ITS | Encounter Summary ---
[place] [address] Care Team Providers Care Post Manager Name Role Phone Rodney Padilla MD Primary Care Provider Reason for Referral * Consultation (Routine) - Closed Specialty Diagnoses / Procedures Referred By Gonzalez kumari Referred To Contact Pulmonology Diagnoses Interstitial lung disease Rodney Padilla MD [address] [place] [address] [facility]monology [address] [place] [phone] Referral ID Status Reason Start Date Expiration Date V isits Requested Visits Authorized [id number] Closed Consult, Test & Treat 08/21/2023 08/20/2024 1 1 Encounter Details Date Type Department Care Team (Late st Contact Info) Description 08/21/2023 Orders Only Family Medicine at [address] [place] [phone] Rodney Padilla MD [address] [place] [address] Interstitial lung disease Social History Tobacco Use [...] AM EST Office Visit Internal Medicine at [facility] [address] [place] [phone] Daryn Garrett MD [facility] DR LILI [place] [address] 10/02/2024 1:00 PM EDT Office Visit Ophthalmology at [place] [phone] Juanpablo Hernandez MD [facility] [place] [address] 01/30/2025 1:30 PM EDT Laboratory Appointment Lab at [facility] [place] Hematology Oncology [address] [place] [address] 01/30/2025 3:[address] Scan at [place] [address] Arturo Cordero MD [facility] DR HEMAT[place] [address] 01/30/2025 4:15 PM EDT Office Visit Hematology and Oncology at [place] [address] Arturo Cordero MD [facility] DR [place]EMAT[place] [address] Scheduled Procedures Name Priority Associated Diagnoses Date/Ti [...] fibrosis documented in this encounter Care Teams Post Manager Relationship Specialty Start Date End Date Rodney Padilla MD PCP - General 07/18/22 04/09/24 documented as of this encounter
--- OUTSIDE RECORDS SUMMARY | 2024-06-07 13:31 | XMS_ITS | Encounter Summary ---
Author Organization [facility] Address [facility] [place] [address] Care Team Providers Care Turbine Subassembler Name Role Phone Rodney Padilla MD Primary Care Provider [phone] Encounter Details Date Type Department Care Team [...] AM EST Office Visit Internal Medicine at [facility] [address] [place] [address] Daryn Garrett MD [facility] DR LILI WALKER [place] [address] 10/02/2024 1:00 PM EDT Office [place] [phone] Juanpablo Hernandez MD [facility] [place] [address] 01/30/2025 1:30 PM EDT Laboratory Appointment Lab at [facility] Hematology Oncology [address] [place] [phone] 01/30/2025 3:[address] [place] [phone] Arturo Cordero MD [facility] HEMATOLOGY [place] [address] 01/30/2025 4:15 PM EDT Office Visit Hematology [place] [address] Arturo Cordero MD [facility] DR HEMATOLOGY [place] [address] Scheduled Procedures Name Priority Associated Diagnoses Date/Ti me EGD, UPPER GI ENDOSCOPY (WRV U 2.09) Irritable bowel syndrome with constipation COLONOSCOPY, DIAGNOSTIC (WRV U 3.26) Irritable bowel syndrome with constipation documented as of this encounter Visit Diagnoses Not on filedocumented in this encounter Care Teams Turbine Subassembler Relationship Specialty Start Date End Date Rodney Padilla MD PCP - General 07/18/22 04/09/24 documented as of this encounter
--- OUTSIDE RECORDS SUMMARY | 2024-06-07 13:31 | XMS_ITS | Encounter Summary ---
Author Organization [facility] Address One [facility] [place] [address] Care Team Providers Care Information Security Architect Name Role Phone Rodney Padilla MD Primary Care Provider Reason for Visit * Reason Comments Diabetes Encounter Details Date Type Department Care Team (Late st Contact Info) Description 08/03/2023 1:30 PM EST TH Visit (TeleHealth) Family Medicine at [facility] [address] [place] [phone] Julia Low, [facility] [...] are performed sporadically. 3 x weekly. Uses [employer] testing supplies Has [employer] troy but has never worn and fears being unable to understand the results so elected not to try Interested in Dexcom G7, report approved by insurance. Needs to call [employer] to get an update on shipping Prior Averages: 08/26/21 09/09/21 09/24/21 11/14/21 11/03/22 12/01/22 01/03/23 Daily Avg 157 168 131 138 175 153 176 eA1c 8.50782 8.46 7.20 7.44 8.7 7.95 8.75 Acute [...] (Dexcom G7 Sensor) Device 1 Device by [facility].(Non-Drug; Combo Route) route every10 days. 3 each 11 lamoTRIgine (LaMICtal) 100 mg tablet Take 1.5 tablets by mouth daily. 90 tablet 3 umeclidinium-vilanteroL (Anoro Ellipta) 62.5-25 mcg/actuation Disk with Device Inhale 1 Inhalation into the lungs daily. 3 each 3 inhalational spacing device ([place] Aerosol [place] Enhancer) Spacer 1 each by [facility].(Non-Drug; Combo Route) route as needed. 1 each [...] tablet 5 fluticasone propionate (Flonase) 50 mcg/actuation [place], Suspension 1 spray by Each Nare route [...] AM EST Office Visit Internal Medicine at [place] [address] [place] [phone] Daryn Garrett MD [facility] DR LILI [place] [address] 10/02/2024 1:00 PM EDT Office [place] [phone] Juanpablo Hernandez MD [facility] [place] [address] 01/30/2025 1:30 PM EDT Laboratory Appointment Lab at [facility] Hematology Oncology [address] [place] [phone] 01/30/2025 3:[address] [place] [phone] Arturo Cordero MD [facility] [place] [address] 01/30/2025 4:15 PM EDT Office Visit Hematology [place] [address] Arturo Cordero MD [facility] DR [place] [address] Scheduled Procedures Name Priority Associated Diagnoses Date/Ti me EGD, UPPER GI ENDOSCOPY (WRV U 2.09) Irritable bowel syndrome with constipation COLONOSCOPY, DIAGNOSTIC (WRV U 3.26) Irritable bowel syndrome with constipation documented as of this encounter Visit Diagnoses Diagnosis Type 2 diabetes mellitus without long-term current use of insulin- Primary documented in this encounter Care Teams Information Security Architect Relationship Specialty Start Date End Date Rodney Padilla MD PCP - General 07/18/22 04/09/24 documented as of this encounter
--- OUTSIDE RECORDS SUMMARY | 2024-06-07 13:31 | XMS_ITS | Encounter Summary ---
Author Organization [facility] [place] [address] Care Team Providers Care Induction Coordination Engineer Name Role Phone Rodney Padilla MD Primary Care Provider Encounter Details Date Type Department Care Team (Latest Contact Info) Description 06/20/2023 2:00 PM EST Office Visit Family Medicine at [facility] [address] [place] [address] Rodney Padilla MD [address] [facility] [address] [address] Diabetic polyneuropathy associated with type 2 diabetes [...] tablet 5 fluticasone propionate (Flonase) 50 mcg/actuation [place], Suspension 1 spray by Each Nare route [...] patient/family/caregiver Referring and communicating with other health patient care nursing assistant Documenting clinical information in the electronic or other health record Independently interpreting results Care coordination documented in this encounter Plan of Treatment Upcoming Encounters Date Type Department Care Team (Late st Contact Info) Description 06/28/2024 9:30 AM EST Office Visit Internal Medicine at [facility] [address] [place] [phone] Daryn Garrett MD [facility] DR LILI [place] [address] 10/02/2024 1:00 PM EDT Office Visit Ophthalmology at [place] [phone] Juanpablo Hernandez MD [facility] [place] [address] 01/30/2025 1:30 PM EDT Laboratory Appointment Lab at [facility] Hematology Oncology [address] [place] [phone] 01/30/2025 3:[address] [place] [phone] Arturo Cordero MD [facility] DR [place] [address] 01/30/2025 4:15 PM EDT Office Visit Hematology [place] [phone] Arturo Cordero MD [facility] [address] [place] [address] Scheduled Procedures Name Priority Associated Diagnoses Date/Ti [...] PFT FEV1/FVC Pre-BD Z-Score -0.96 COMPAS PFT VOW49-61 Actual Pre-BD 0.88 % COMPAS PFT VQH36-38 Predicted 2.06 % COMPAS PFT JKG02-80 Pre-BD % of Predicted 43 % COMPAS PFT BTU70-73 Pre-BD Z-Score -1.92 COMPAS PFT DLCO Hb [...] Urine 6 0 - 29 mcg/mg Cr [facility] Comment: Reference Ranges: <30 mcg/mg: [...] 2, 357? 362 Albumin, Urine 7.3 mg/L [facility] Creatinine, Urine 119 mg/dL [facility] Urine 06/20/2023 4:05 PM EST 06/20/2023 4:25 PM EST Narrative Resulting Agency Comment Spec In Lab Rodney Padilla MD URINE ORDERABLES [facility] [address] [place] [address] * Lipid Panel (Reflex Direct LDL) (06/20/2023 3:58 PM EST) Cholesterol, Total 141 mg/dL M [facility] Comment: Lower Risk: <200 mg/dL Average Risk: 200-239 mg/dL Higher Risk: >xu=073 mg/dL Triglyceride 96 mg/dL [facility] Comment: Average Risk/Lower Risk: <150 mg/dL Borderline High Risk: 150-199 mg/dL High Risk: 200-499 mg/dL Very High Risk: >el=627 mg/dL HDL Cholesterol 41 mg/dL [facility] Comment: Males: ?? Higher Risk: <40 mg/dL Females: ?? Higher Risk: <50 mg/dL LDL Cholesterol 81 mg/dL [facility] Comment: Lowest Risk: <100 mg/dL Lower Risk: 100-129 mg/dL Borderline High Risk: 130-159 mg/dL High Risk: 160-189 mg/dL Very High Risk: >xk=777 mg/dL Cholesterol/HDL Ratio 3.4 ratio [facility] Lipid Interpretation See Note [facility] Comment: Lipid management should be guided by a patient? s ASCVD risk, goals and preferences. ACC/AHA Guidelines recommend high intensity statin if clinical ASCVD or LDL greater than or equal to 190 mg/dL. http://tinyurl.com/IGJ-HQM-Kobcyjwpq Adults aged 40-75 with LDL 70-189 mg/dL should have their 10 year ASCVD risk estimated with the ACC/AHA ASCVD risk hourly associate http://tools.acc.org/QDNZQ-Hmmt-Pipkhzyqe/ Statin should be discussed if risk greater [...] Lab Rodney Padilla MD CHEMISTRY ORDERABLE S [facility] [place] [address] * Basic Metabolic Panel (non-fasting) (06/20/2023 3:58 PM EST) Glucose 142 65 - 199 mg/dL [facility] Comment:Diabetes: >=200 mg/d L plus symptoms Blood Urea Nitrogen 11 8 - 18 mg/dL [facility] Creatinine 0.89 0.70 - 1.20 mg/dL [facility] Sodium 144 135 - 145 mmol/L [facility] Potassium 4.3 3.5 - 5.0 mmol/L [facility] Comment: Please note: ??Patients with WBC >100,000 may have falsely elevated Potassium levels. ??For accurate Potassium quantification in these patients send serum separator tube (gold top) for subsequent determinations. ??Contact the Clinical Chemistry Laboratory if there are any questions. Chloride 106 98 - 107 mmol/L [facility] Carbon Dioxide 25 22 - 31 mmol/L [facility] Anion Gap 13 5 - 15 mmol/L [facility] Calcium 9.3 8.5 - 10.5 mg/dL [facility] Est Glomerular Filtration Rate 73 >=60 mL/min/1. 73 m?? [facility] Comment: This patient's estimated GFR [...] MD CHEMISTRY ORDERABLE S Performing Organization Address City/[facility]/ZIP Co de Phone Number [facility] [place] [address] * (ABNORMAL) Hemoglobin A1c (06/20/2023 3:58 PM EST) Hemoglobin A1c 9.4(H) 4.3 - 5.6 % [facility] Comment: Reference Range: 4.3 - [...] Mellitus, Diabetes Care 2013; 36: Suppl. 1, S67-88 Estimated Average Glucose 222 mg/dL [facility] Comment: Note: The eAG calculation has not been proven valid for women, individuals below 18 years old or above 70 years old, or individuals with hemoglobinopathies. Estimated average glucose (eAG) is calculated from the equation described in: Yahir GRADY, Bernadette J, Tahira R, et al. ??Translating the A1C assay into estimated average glucose values. ??Diabetes Care 2008:31(8):5071-8067. Additional resources are available on the ADA website (diabetes.org). Blood 06/20/2023 3:58 PM EST 06/20/2023 4:08 PM EST Narrative Resulting Agency Comment Spec In Lab Rodney Padilla MD CHEMISTRY ORDERABLE S [facility] [place] [address] documented in this encounter Visit Diagnoses Diagnosis [...] type documented in this encounter Care Teams Induction Coordination Engineer Relationship Specialty Start Date End Date Rodney Padilla MD PCP - General 07/18/22 04/09/24 documented as of this encounter
--- OUTSIDE RECORDS SUMMARY | 2024-06-07 13:31 | XMS_ITS | Encounter Summary ---
Author Organization [facility] Address [facility] [place] [address] Care Team Providers Care Vp Scientific Name Role Phone Rodney Padilla MD Primary Care Provider [phone] Encounter Details Date Type Department Care Team [...] EST Office Visit Internal Medicine at [facility] [address] [place] [address] Daryn Garrett MD [facility] DR LILI [place] [address] 10/02/2024 1:00 PM EDT Office [place] [phone] Juanpablo Hernandez MD [facility] [place] [address] 01/30/2025 1:30 PM EDT Laboratory Appointment Lab at [facility] Hematology Oncology [address] [place] [phone] 01/30/2025 3:[address] [place] [phone] Arturo Cordero MD [facility] [place] [address] 01/30/2025 4:15 PM EDT Office Visit H[place]ology [place] [address] Arturo Cordero MD [facility] DR [place] [address] Scheduled Procedures Name Priority Associated Diagnoses Date/Ti me EGD, UPPER GI ENDOSCOPY (WRV U 2.09) Irritable bowel syndrome with constipation COLONOSCOPY, DIAGNOSTIC (WRV U 3.26) Irritable bowel syndrome with constipation documented as of this encounter Visit Diagnoses Not on filedocumented in this encounter Care Teams Vp Scientific Relationship Specialty Start Date End Date Rodney Padilla MD PCP - General 07/18/22 04/09/24 documented as of this encounter
--- OUTSIDE RECORDS SUMMARY | 2024-06-07 13:31 | XMS_ITS | Encounter Summary ---
Author Organization [facility] Address One [facility] [place] [address] Care Team Providers Care Decay Control Operator Name Role Phone Rodney Padilla MD Primary Care Provider Reason for Visit * Reason Onset Date Comments Medication Refill 06/16/2023 Encounter Details Date Type Department Care Team (Late st Contact Info) Description 06/16/2023 Telephone Family Medicine at [facility] [address] [place] [address] Rodney Padilla MD [address] [place] [address] [place] [facility] [address] Medication Refill Social History Tobacco Use Types [...] Pharmacy Name & Location: [facility] [phone] Caller would like clinic to reach out to the Pharmacy: yes Patient declined scheduling an appointment: no Ask caller their first and last name and relationship to the patient: self Best time to call back: yes Ok to leave a message: yes Ok to send [facility] message: yes Did you contact your pharmacy: yes Patient called stating the pharmacy does not have any extra refills for her. documented in this encounter Plan of Treatment Upcoming Encounters Date Type Department Care Team (Late st Contact Info) Description 06/28/2024 9:30 AM EST Office Visit Internal Medicine at [address] [phone] Daryn Garrett MD [facility] DR LILI W[place]ER [place] [address] 10/02/2024 1:00 PM EDT Office [place] [phone] Juanpablo Hernandez MD [facility] [address] 01/30/2025 1:30 PM EDT Laboratory Appointment Lab at [facility] [place] Oncology [address] [place] [phone] 01/30/2025 3:[address] [place] [phone] Arturo Cordero MD [facility] HEMATOLOGY [place] [address] 01/30/2025 4:15 PM EDT Office Visit Hematology [place] [phone] Arturo Cordero MD [facility] HEMATOLOGY [place] [address] Scheduled Procedures Name Priority Associated Diagnoses Date/Ti me EGD, UPPER GI ENDOSCOPY (WRV U 2.09) Irritable bowel syndrome with constipation COLONOSCOPY, DIAGNOSTIC (WRV U 3.26) Irritable bowel syndrome with constipation documented as of this encounter Visit Diagnoses Not on filedocumented in this encounter Care Teams Decay Control Operator Relationship Specialty Start Date End Date Rodney Padilla MD PCP - General 07/18/22 04/09/24 documented as of this encounter
--- OUTSIDE RECORDS SUMMARY | 2024-06-07 13:31 | XMS_ITS | Encounter Summary ---
Author Organization [place] [address] Care Team Providers Care Academic Support Assistant Name Role Phone Rodney Padilla MD Primary Care Provider Encounter Details Date Type Department Care Team (Latest Contact Info) Description 08/03/2023 7:45 AM EST - 08/03/2023 11:59 PM EST Hospital Encounter Hematology [place] [address] Malignant melanoma of conjunctiva, left Discharge Disposition: [...] End Date inhalational spacing device (Hesham Aerosol [place]field Enhancer) SpacerIndications:Chr onic obstructive pulmonary disease, unspecified [...] use of insulin 1 Device by [facility].(Non-Drug; Combo Route) route every 10 days. 3 each 07/07/2023 08/18/2023 lamoTRIgine (LaMICtal) 100 mg tabletIndications:Bip [...] 09/26/2022 09/19/2023 fluticasone propionate (Flonase) 50 mcg/actuation [place], Suspension [...] AM EST Office Visit Internal Medicine at [place] [address] [place] [address] Daryn Garrett MD [facility] DR LILI WALKER - [place] [address] 10/02/2024 1:00 PM EDT Office [place] [phone] Juanpablo Hernandez MD [facility] [place] [address] 01/30/2025 1:30 PM EDT Laboratory Appointment Lab at [facility] [place] [address] [place] [phone] 01/30/2025 3:[address] [place] [phone] Arturo Cordero MD [facility] HEMATOLOGY [place] [address] 01/30/2025 4:15 PM EDT Office Visit Hematology [place] [phone] Arturo Cordero MD [facility] DR HEMATOLOGY [place] [address] Scheduled Procedures Name Priority Associated Diagnoses Date/Ti [...] 7:53 AM EST) Neutrophil % 63.8 % [facility] Neutrophil Absolute 5.66 1.70 - 6.10 x10(3)/mc L [facility] Lymph % 24.1 % [facility] Lymphocytes Abs 2.1 0.9 - 3.2 x10(3)/mc L [facility] Monocyte % 8.9 % [facility] Monocyte Abs 0.8 0.3 - 0.9 x10(3)/mc L [facility] Eos % 1.8 % [facility] Eosinophils Abs 0.2 0.0 - 0.4 x10(3)/mc L [facility] Basophil % 0.8 % [facility] Baso Absolute 0.1 0.0 - 0.1 x10(3)/mc L [facility] Immature Gran % 0.60 % [facility] Comment: Immature granulocytes(IG's)percentage and absolute count will include metamyelocytes, myelocytes, and promyelocytes. Blood smears from CBCs yielding IG's will be scanned manually for concordance. If this scan disagrees with the automated IG or if promyelocytes are noted, a manual differential will be performed. Immature Gran Absolute 0.05(H) 0.00 - 0.04 x10(3)/mc L [facility] Blood 08/03/2023 7:53 AM EST 08/03/2023 8:53 AM EST Narrative Resulting Agency Comment Spec In Lab Arturo Cordero MD HEMATOLOGY ORDERABLE S [facility] [place] [address] * (ABNORMAL) Hemogram (08/03/2023 7:53 AM EST) White Blood Cell 8.9 4.0 - 9.5 x10(3)/mc L [facility] Red Blood Cell 4.61 4.00 - 5.21 x10(6)/mc L [facility] Hemoglobin 13.0 11.7 - 15.5 g/dL [facility] Hematocrit 39.3 35.7 - 45.8 % [facility] Mean Cell Volume 85.2 82.6 - 94.4 fL [facility] Mean Cell Hemoglobin 28.2 27.1 - 32.0 pg [facility] Mean Cell Hemoglobin Concentration 33.1 31.7 - 35.0 g/dL [facility] Platelet 389(H) 145 - 357 x10(3)/mc L [facility] RDW Standard Deviation 46.1(H) 37.0 - 46.0 fL [facility] RDW coefficient of variation 14.8(H) 11.5 - 14.1 % [facility] Mean Platelet Volume 9.3 7.6 - 12.9 fL [facility] NRBC% auto 0.0 % [facility] NRBC Absolute 0.000 0.000 - 0.000 x10(3)/mc L [facility] Blood 08/03/2023 7:53 AM EST 08/03/2023 8:53 AM EST Narrative Resulting Agency Comment Spec In Lab Arturo Cordero MD HEMATOLOGY ORDERABLE S [facility] [place] [address] * (ABNORMAL) Comprehensive metabolic panel (non-fasting) (08/03/2023 7:53 AM EST) Glucose 254(H) 65 - 199 mg/dL [facility] Comment:Diabetes: >=200 mg/d L plus symptoms Blood Urea Nitrogen 17 8 - 18 mg/dL [facility] Creatinine 0.82 0.70 - 1.20 mg/dL [facility] Sodium 140 135 - 145 mmol/L [facility] Potassium 4.9 3.5 - 5.0 mmol/L [facility] Comment: Please note: ??Patients with WBC >100,000 may have falsely elevated Potassium levels. ??For accurate Potassium quantification in these patients send serum separator tube (gold top) for subsequent determinations. ??Contact the Clinical Chemistry Laboratory if there are any questions. Chloride 103 98 - 107 mmol/L [facility] Carbon Dioxide 27 22 - 31 mmol/L [facility] Anion Gap 10 5 - 15 mmol/L [facility] Calcium 9.5 8.5 - 10.5 mg/dL [facility] Protein, Total 6.9 6.1 - 8.0 g/dL [facility] Albumin 4.3 3.2 - 5.2 g/dL [facility] Aspartate Aminotransferase 19 0 - 30 unit/L [facility] Alanine Aminotransferase 26 0 - 30 unit/L [facility] Alkaline Phosphatase 101 35 - 105 unit/L [facility] Bilirubin, Total 0.3 0.2 - 1.3 mg/dL [facility] Est Glomerular Filtration Rate 80 >=60 mL/min/1. 73 m?? [facility] Comment: This patient's estimated GFR was [...] CHEMISTRY ORDERABLES Performing Organization Address [facility] Co de Phone Number [facility] [place] [address] * Lactate Dehydrogenase (08/03/2023 7:53 AM EST) Lactate Dehydrogenase 218 110 - 220 unit/L [facility] Blood 08/03/2023 7:53 AM EST 08/03/2023 9:46 AM EST Narrative Resulting Agency Comment Spec In Lab Arturo Cordero MD CHEMISTRY ORDERABLES Performing Organization Address [facility] de Phone Number [facility] [place] [address] documented in this encounter Visit Diagnoses Diagnosis Malignant melanoma of conjunctiva, left documented in this encounter Care Teams Academic Support Assistant Relationship Specialty Start Date End Date Rodney Padilla MD PCP - General 07/18/22 04/09/24 documented as of this encounter
--- OUTSIDE RECORDS SUMMARY | 2024-06-07 13:31 | XMS_ITS | Encounter Summary ---
Author Organization [facility] Address [facility] [place] [address] Care Team Providers Care Acid Maker Name Role Phone Rodney Padilla MD [...] AM EST Office Visit Internal Medicine at [facility] [address] [place] [address] Daryn Garrett MD [facility] DR LILI [place] [address] 10/02/2024 1:00 PM EDT Office [place] [phone] Juanpablo Hernandez MD [facility] [place] [address] 01/30/2025 1:30 PM EDT Laboratory Appointment Lab at [facility] [place] [address] [place] [phone] 01/30/2025 3:[address] [place] [phone] Arturo Cordero MD [facility] [place] [address] 01/30/2025 4:15 PM EDT Office Visit Hematology [place] [address] Arturo Cordero MD [facility] DR [place] [address] Scheduled Procedures Name Priority Associated Diagnoses Date/Ti me EGD, UPPER GI ENDOSCOPY (WRV U 2.09) Irritable bowel syndrome with constipation COLONOSCOPY, DIAGNOSTIC (WRV U 3.26) Irritable bowel syndrome with constipation documented as of this encounter Visit Diagnoses Not on filedocumented in this encounter Care Teams Acid Maker Relationship Specialty Start Date End Date Rodney Padilla MD PCP - General 07/18/22 04/09/24 documented as of this encounter
--- OUTSIDE RECORDS SUMMARY | 2024-06-07 13:31 | XMS_ITS | Encounter Summary ---
Author Organization [facility] Address [facility] [address] Care Team Providers Care Ice Cream Vault Worker Name Role Phone Rodney Padilla MD [...] AM EST Office Visit Internal Medicine at [facility] [address] [place] [address] Daryn Garrett MD [facility] DR LILI [place] [address] 10/02/2024 1:00 PM EDT Office [place] [phone] Juanpablo Hernandez MD [facility] [place] [address] 01/30/2025 1:30 PM EDT Laboratory Appointment Lab at [facility] Hematology Oncology [address] [place] [phone] 01/30/2025 3:[address] [place] [address] Arturo Cordero MD [facility] [place] [address] 01/30/2025 4:15 PM EDT Office Visit Hematology [place] [address] Arturo Cordero MD [facility] DR [place] [address] Scheduled Procedures Name Priority Associated Diagnoses Date/Ti me EGD, UPPER GI ENDOSCOPY (WRV U 2.09) Irritable bowel syndrome with constipation COLONOSCOPY, DIAGNOSTIC (WRV U 3.26) Irritable bowel syndrome with constipation documented as of this encounter Visit Diagnoses Not on filedocumented in this encounter Care Teams Ice Cream Vault Worker Relationship Specialty Start Date End Date Rodney Padilla MD PCP - General 07/18/22 04/09/24 documented as of this encounter
--- OUTSIDE RECORDS SUMMARY | 2024-06-07 13:31 | XMS_ITS | Encounter Summary ---
Author Organization [facility] [place] [address] Care Team Providers Care Director Water And Waste Services Name Role Phone Rodney Padilla MD Primary Care Provider [phone] Reason for Visit * Reason Comments Medication Refill Encounter Details Date Type Department Care Team (Late st Contact Info) Description 08/27/2023 Refill Family Medicine at [facility] [address] [address] Rodney Padilla MD [address] [place] [address] Mixed hyperlipidemia Social History Tobacco Use [...] Office Visit Internal Medicine at [facility] [address] [place] [address] Daryn Garrett MD [facility] DR LILI [place]O [place] [address] 10/02/2024 1:00 PM EDT Office [place] [phone] Juanpablo Hernandez MD [facility] [place] [address] 01/30/2025 1:30 PM EDT Laboratory Appointment Lab at [facility] [place] On[place] [address] [place] [phone] 01/30/2025 3:[address] [place] [phone] Arturo Cordero MD [facility] DR [place] [address] 01/30/2025 4:15 PM EDT Office Visit Hematology [place] [phone] Arturo Cordero MD [facility] DR [place]EM[place] [address] Scheduled Procedures Name Priority Associated Diagnoses Date/Ti me EGD, UPPER GI ENDOSCOPY (WRV U 2.09) Irritable bowel syndrome with constipation COLONOSCOPY, DIAGNOSTIC (WRV U 3.26) Irritable bowel syndrome with constipation documented as of this encounter Visit Diagnoses Diagnosis Mixed hyperlipidemia documented in this encounter Care Teams Director Water And Waste Services Relationship Specialty Start Date End Date Rodney Padilla MD PCP - General 07/18/22 04/09/24 documented as of this encounter
--- OUTSIDE RECORDS SUMMARY | 2024-06-07 13:31 | XMS_ITS | Encounter Summary ---
Author Organization [facility] Address [facility] [place] [address] Care Team Providers Care Studio Grip Name Role Phone Rodney Padilla MD Primary Care Provider Encounter Details Date Type Department Care Team (Late st Contact Info) Description 08/11/2023 Orders Only Hematology [place] [address] Arturo Cordero MD [facility] DR HEMATOLOGY [place] [address] Social History Tobacco Use Types Packs/Day Years [...] [facility] [address] [place] [phone] Drayn Garrett MD [facility] DR LILI AZEVEDO [place] [address] 10/02/2024 1:00 PM EDT Office [place] [phone] Juanpablo Hernandez MD [facility] [place] [address] 01/30/2025 1:30 PM EDT Laboratory Appointment Lab at [facility] Hematology Oncology [address] [place] [phone] 01/30/2025 3:[address] [place] [phone] Arturo Cordero MD [facility] DR HEMATOLOGY [place] [address] 01/30/2025 4:15 PM EDT Office Visit Hematology [place] [address] Arturo Cordero MD [facility] DR HEMATOLOGY [place] [address] Scheduled Procedures Name Priority Associated Diagnoses Date/Ti me EGD, UPPER GI ENDOSCOPY (WRV U 2.09) Irritable bowel syndrome with constipation COLONOSCOPY, DIAGNOSTIC (WRV U 3.26) Irritable bowel syndrome with constipation documented as of this encounter Visit Diagnoses Not on filedocumented in this encounter Care Teams Studio Grip Relationship Specialty Start Date End Date Rodney Padilla MD PCP - General 07/18/22 04/09/24 documented as of this encounter
--- OUTSIDE RECORDS SUMMARY | 2024-06-07 13:31 | XMS_ITS | Encounter Summary ---
Author Organization [facility] Address [facility] [place] [address] Care Team Providers Care Functional Tester Name Role Phone Rodney Padilla MD Primary Care Provider Reason for Visit * Reason Onset Date Comments Medication Refill 05/24/2023 Encounter Details Date Type Department Care Team (Late st Contact Info) Description 05/24/2023 Refill Family Medicine at [facility] [address] [place] [address] Rodney Padilla MD [address] [place] [address] [facility] [place] [place] [address] Social History Tobacco Use Types Packs/Day [...] clinic to reach out to the Pharmacy: [address] Patient declined scheduling an appointment: 06/20/23 next appt Ask caller their first and last name and relationship to the patient: self Best time to call back: any Ok to leave a message: Ok to send [facility] message: Did you contact your pharmacy: Patient states pharmacy says no more refills documented in this encounter Plan of Treatment Upcoming Encounters Date Type Department Care Team ([facility] Contact Info) Description 06/28/2024 9:30 AM EST Office Visit Internal Medicine at [facility] [address] [place] [phone] Daryn Garrett MD [facility] DR [place] [address] 10/02/2024 1:00 PM EDT Office Visit [place] [phone] Juanpablo Hernandez MD [facility] [place] [address] 01/30/2025 1:30 PM EDT Laboratory Appointment Lab at [facility] Hematology Oncology [address] [place] [address] 01/30/2025 3:[address] [place] [phone] Arturo Cordero MD [facility] [place] [address] 01/30/2025 4:15 PM EDT Office Visit Hematology and Oncology at [place] [phone] Arturo Cordero MD [facility] [place] [address] Scheduled Procedures Name Priority Associated Diagnoses Date/Ti me EGD, UPPER GI ENDOSCOPY (WRV U 2.09) Irritable bowel syndrome with constipation COLONOSCOPY, DIAGNOSTIC (WRV U 3.26) Irritable bowel syndrome with constipation documented as of this encounter Visit Diagnoses Not on filedocumented in this encounter Care Teams Functional Tester Relationship Specialty Start Date End Date Rodney Padilla MD PCP - General 07/18/22 04/09/24 documented as of this encounter
--- OUTSIDE RECORDS SUMMARY | 2024-06-07 13:31 | XMS_ITS | Encounter Summary ---
Author Organization [facility] [place] [address] Care Team Providers Care Showroom Executive Director Name Role Phone Rodney Padilla MD Primary Care Provider Reason for Visit * Reason Onset Date Comments Prior Authorization 07/12/2023 Dexcom G7 Se nsor Encounter Details Date Type Department Care Team (Late st Contact Info) Description 07/12/2023 Telephone Family Medicine at [facility] [address] [place] [phone] Aida Aguayo, CUSTOMER ORDER CLERK Prior Authorization (Dexcom G7 Sensor) Social History [...] Outcome: PA Not Needed Patient goes through [employer] for Blood Glucose Sensors and Receivers. * Telephone Encounter - Aida Aguayo CMA - 07/26/2023 9:28 AM EST Called insurance. Unable to speak with a sales representative health insurance. Resubmitted PA through [facility] Anderson: [id number] * Telephone Encounter - Arlene Palomo CMA - 07/14/2023 10:53 AM EST Images from the original note were not included. PA resubmitted to the insurance with the complete member ID number. [place] [id number] * Telephone Encounter - Aida Aguayo CMA - 07/12/2023 8:45 AM EST PA Submitted Submitted Date: Date Submitted: 07/12/2023 Medication Prior Authorization Patient: Alize Gramajo Patient : 1960 Insurance Company: [employer] Sent via: [facility] Anderson: [id number] Physician: Rodney Padilla MD Medication Requested: Blood-Glucose Sensor (Dexcom G7 Sensor) Device Frequency/Si Device by [facility].(Non-Drug; Combo Route) route every 10 days. Disp: [...] AM EST Office Visit Internal Medicine at [address] [phone] Daryn Garrett MD [facility] DR LILI [place] [address] 10/02/2024 1:00 PM EDT Office Visit Ophthalmology at [place] [phone] Juanpablo Hernandez MD [facility] [place] [address] 01/30/2025 1:30 PM EDT Laboratory Appointment Lab at [facility] Hematology Oncology [address] [place] [address] 01/30/2025 3:[address] Scan at [place] [address] Arturo Cordero MD [facility] [place] [address] 01/30/2025 4:15 PM EDT Office Visit Hematology and Oncology at [place] [address] Arturo Cordero MD [facility] [place] [address] Scheduled Procedures Name Priority Associated Diagnoses Date/Ti me EGD, UPPER GI ENDOSCOPY (WRV U 2.09) Irritable bowel syndrome with constipation COLONOSCOPY, DIAGNOSTIC (WRV U 3.26) Irritable bowel syndrome with constipation documented as of this encounter Visit Diagnoses Not on filedocumented in this encounter Care Teams Showroom Executive Director Relationship Specialty Start Date End Date Rodney Padilla MD PCP - General 07/18/22 04/09/24 documented as of this encounter
--- OUTSIDE RECORDS SUMMARY | 2024-06-07 13:32 | XMS_ITS | Encounter Summary ---
Author Organization [facility] Address [facility] [place] [address] Care Team Providers Care Electronics Recycler Name Role Phone Rodney Padilla MD Primary Care Provider [phone] Reason for Visit * Reason Comments Diabetes Hyperlipidemia Encounter Details Date Type Department Care Team (Late st Contact Info) Description 01/23/2023 9:30 AM EDT TH Visit (TeleHealth) Family Medicine at [facility] [address] [place] [phone] Julia Low, [facility] - [...] as of this encounter Progress Notes * Juila Low RPH - 01/23/2023 9:30 AM EDT Clinical Pharmacist [...] any of the following conditions: Yes [x] MA/Stroke/CAD [] Retinopathy [] CHF [x] Neuropathy [] [...] 195 170 168 Daily Avg 168 eA1c [id number] Prior Averages: 08/26/21 09/09/21 09/24/21 11/14/21 11/03/22 12/01/2227/23 Daily Avg 157 168 131 138 175 153 176 eA1c 8.89684 8.46 7.20 7.44 8.7 7.95 8.75 Acute [...] tablet 5 fluticasone propionate (Flonase) 50 mcg/actuation [place], Suspension [...] spacer 1 each 11 FreeStyle Sanjana 2 [place] Misc 1 each by Other route daily. [...] EST Office Visit Internal Medicine at [address] [place] [phone] Daryn Garrett MD [facility] DR LILI [place] [address] 10/02/2024 1:00 PM EDT Office Visit [place] [phone] Juanpablo Hernandez MD [facility] [place] [place] [address] 01/30/2025 1:30 PM EDT Laboratory Appointment Lab at [facility] Hematology Oncology [address] [place], [place] [phone] 01/30/2025 3:[address] [place] [address] Arturo Cordero MD [facility] [address] [place] [address] 01/30/2025 4:15 PM EDT Office Visit Hematology and Oncology at [place] [phone] Arturo Cordero MD [facility] [address] [place] [address] Scheduled Procedures Name Priority Associated Diagnoses Date/Ti me EGD, UPPER GI ENDOSCOPY (WRV U 2.09) Irritable bowel syndrome with constipation COLONOSCOPY, DIAGNOSTIC (WRV U 3.26) Irritable bowel syndrome with constipation documented as of this encounter Visit Diagnoses Diagnosis Type 2 diabetes mellitus without long-term current use of insulin- Primary documented in this encounter Care Teams Electronics Recycler Relationship Specialty Start Date End Date Rodney Padilla MD PCP - General 07/18/22 04/09/24 documented as of this encounter
--- OUTSIDE RECORDS SUMMARY | 2024-06-07 13:32 | XMS_ITS | Encounter Summary ---
Author Organization [facility] Address [facility] Cent[facility]atherine [place] [address] Care Team Providers Care Manager Sterile Name Role Phone Rodney Padilla MD Primary [...] Medicine at [facility] [address] [place] [address] Daryn Garrett MD [facility] DR [place] [address] 10/02/2024 1:00 PM EDT Office [place] [phone] Juanpablo Hernandez MD [facility] [place] [address] 01/30/2025 1:30 PM EDT Laboratory Appointment Lab at [facility] Hematology Oncology [address] [place] [phone] 01/30/2025 3:[address] [place] [phone] Arturo Cordero MD [facility] [place] [address] 01/30/2025 4:15 PM EDT Office Visit Hematology [place] [address] Arturo Cordero MD [facility] [place] [address] Scheduled Procedures Name Priority Associated Diagnoses Date/Ti me EGD, UPPER GI ENDOSCOPY (WRV U 2.09) Irritable bowel syndrome with constipation COLONOSCOPY, DIAGNOSTIC (WRV U 3.26) Irritable bowel syndrome with constipation documented as of this encounter Visit Diagnoses Not on filedocumented in this encounter Care Teams Manager Sterile Relationship Specialty Start Date End Date Rodney Padilla MD PCP - General 07/18/22 04/09/24 documented as of this encounter
--- OUTSIDE RECORDS SUMMARY | 2024-06-07 13:32 | XMS_ITS | Encounter Summary ---
Author Organization [facility] Address [facility] [place] [address] Care Team Providers Care Library Specialist Name Role Phone Rodney Padilla MD Primary Care Provider [phone] Reason for Visit * Reason Comments Other Leg fluid Diabetes Encounter Details Date Type Department Care Team (Latest Contact Info) Description 04/17/2023 4:00 PM EDT Office Visit Family Medicine at [facility] [address] [place] [address] Rodney Padilla MD [address] [place] [address] [place] [address] Edema, unspecified type; Diabetic polyneuropathy associated with [...] tablet 5 fluticasone propionate (Flonase) 50 mcg/actuation [place], Suspension 1 spray by Each Nare route [...] Referring and communicating with other health healthcare business analyst Documenting clinical information in the electronic or other health record Independently interpreting results Care coordination documented in this encounter Plan of Treatment Upcoming Encounters Date Type Department Care Team (Late st Contact Info) Description 06/28/2024 9:30 AM EST Office Visit Internal Medicine at [facility] [address] [place] [address] Daryn Garrett MD [facility] DR LILI AZEVEDO [place] [address] 10/02/2024 1:00 PM EDT Office Visit Ophthalmology at [place] [address] Juanpablo Hernandez MD [facility] [place] [address] 01/30/2025 1:30 PM EDT Laboratory Appointment Lab at [facility] Hematology Oncology [address] [place] [address] 01/30/2025 3:[address] Scan at [place] [address] Arturo Cordero MD [facility] [place] [address] 01/30/2025 4:15 PM EDT Office Visit Hematology and Oncology at [place] [address] Arturo Cordero MD [facility] [place] [address] Scheduled Procedures Name Priority Associated Diagnoses Date/Ti [...] tissue documented in this encounter Care Teams Library Specialist Relationship Specialty Start Date End Date Rodney Padilla MD PCP - General 07/18/22 04/09/24 documented as of this encounter
--- OUTSIDE RECORDS SUMMARY | 2024-06-07 13:32 | XMS_ITS | Encounter Summary ---
Author Organization [facility] [place] [address] Care Team Providers Care Plug Cutting Machine Operator Name Role Phone Rodney Padilla MD Primary Care Provider Reason for Referral * Diagnostic Test (Routine) - Closed Specialty Diagnoses / Procedures Referred By Contac t Referred To Contact Radiology Diagnoses Malignant melanoma of conjunctiva, left Procedures CT Neck Soft Tissue w Contrast (Generic) Arturo Cordero MD [facility] DR HEMATOLOGY AND [place] [address] [facility] [place] [address] Referral ID Status Reason Start Date Expiration Date V isits Requested Visits Authorized [id number] Closed Specialty Service Requested 12/29/2022 06/30/2024 1 1 * Diagnostic Test (Routine) - Closed Specialty Diagnoses / Procedures Referred By Contac t Referred To Contact Radiology Diagnoses Malignant melanoma of conjunctiva, left Renal cell cancer, left Procedures CT Chest Abdomen Pelvis w Contrast (Generic) Arturo Cordero MD [facility] DR HEMATOLOGY AND [place]OG[place] [address] [facility] [place] [address] Referral ID Status Reason Start Date Expiration Date V isits Requested Visits Authorized [id number] Closed Specialty Service Requested 12/29/2022 06/30/2024 1 1 * Diagnostic Test (Routine) - Closed Specialty Diagnoses / Procedures Referred By Contac t Referred To Contact Radiology Diagnoses Malignant melanoma of conjunctiva, left Procedures CT Neck Soft Tissue w Contrast (Generic) Arturo Cordero MD [facility] DR HEMATOLOGY AND ONCOLOG[place] [address] [facility] [place] [address] Referral ID Status Reason Start Date Expiration Date V isits Requested Visits Authorized [id number] Closed Specialty Service Requested 12/29/2022 06/30/2024 1 1 * Diagnostic Test (Routine) - Closed Specialty Diagnoses / Procedures Referred By Contac t Referred To Contact Radiology Diagnoses Malignant melanoma of conjunctiva, left Renal cell cancer, left Procedures CT Chest Abdomen Pelvis w Contrast (Generic) Arturo Cordero MD [facility] DR HEMATOLOGY AND ONCOLOG[place] [address] [facility] [place] [address] Referral ID Status Reason Start Date Expiration Date V isits Requested Visits Authorized [id number] Closed Specialty Service Requested 12/29/2022 06/30/2024 1 1 Reason for Visit * Reason Comments Follow-up Encounter Details Date Type Department Care Team (Late st Contact Info) Description 12/29/2022 12:45 PM EDT Office Visit Hematology [place] [address] Arturo Cordero MD [facility] DR HEMATOLOGY AND ONCOLOG[place] [address] Malignant melanoma of conjunctiva, left [...] from the original note were not included. [facility] NOTE REFERING PHYSICIAN: Dr. Juanpablo [...] management - fall 2018: saw a new retail stocker and was referred to Dr. 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 Medina - 03/31/2020: saw her retail stocker Dr. 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 10/09/2007 History of [...] 3.47) performed by Juanpablo Hernandez MD at [facility] OSC PRO EXCIS CORNEA LESN Left 05/14/2020 EXCISION OF LESION, CORNEA, EXCEPT PTERYGIUM (WRVU 7.5) performed by Juanpablo Hernandez MD at [facility] OSC PRO LAP, PARTIAL NEPHRECTOMY Left 06/28/2019 LAPAROSCOPY, PARTIAL NEPHRECTOMY, ROBOTIC ASSIST (WRVU 27.41) performed by Avila Medina MD at [facility] MAIN OR PRO PLACE AMNIOTIC MEMBRANE OCULAR SURFACE;SINGLE LAYER SUTURED Left 05/14/2020 PLACEMENT OF AMNIOTIC MEMBRANE ON THE OCULAR SURFACE,SINGLE LAYER,SUTURED (WRVU 2.5) performed by Juanpablo Hernandez MD at [facility] OSC MEDS: Alcohol Swabs, LORazepam, Nebulizer [...] with significant other 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, 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 [...] AM EST Office Visit Internal Medicine at [facility] [address] [place] [address] Daryn Garrett MD [facility] DR LILI WALKER - PRIMARY [place] [address] 10/02/2024 1:00 PM EDT Office [place] [phone] Juanpablo Hernandez MD [facility] OPHTHALMOLOGY [place] [address] 01/30/2025 1:30 PM EDT Laboratory Appointment Lab at [facility] Hematology Oncology [address] [place] [phone] 01/30/2025 3:[address] [place] [phone] Arturo Cordero MD [facility] DR HEMATOLOGY AND ONCOLOG[place] [address] 01/30/2025 4:15 PM EDT Office Visit Hematology [place] [address] Arturo Cordero MD [facility] DR HEMATOLOGY AND ONCOLOG[place] [address] Scheduled Procedures Name Priority Associated Diagnoses Date/Ti [...] have questions please contact the health healthcare management consultant that requested your imaging first. ? Narrative [...] The orbits are not included within the [id number]. No masses along the visualized upper aerodigestive [...] The orbits are not included within the [id number]. No masses alongthe visualized upper aerodigestive tract. [...] who have questions please contactthe health healthcare management consultant that requested your imaging first. Arturo Cordero [...] have questions please contact the health healthcare management consultant that requested your imaging first. ? Electronically signed by: Zain Izaguirre MD, [facility] ([phone]), at 08/03/2023 4:55 PM Narrative 08/03/2023 4:55 [...] who have questions please contactthe health healthcare management consultant that requested your imaging first. Electronically signed by: Zain Izaguirre MD, [facility]([phone]), at 08/03/2023 4:55 PM Arturo Cordero MD [...] have questions please contact the health healthcare management consultant that requested your imaging first. ? Narrative [...] after the intravenous administration of 110 mL [id number]. COMPARISON: CT neck 06/23/2022 FINDINGS: No large [...] who have questions please contactthe health healthcare management consultant that requested your imaging first. Arturo Cordero MD [facility] ORDERABLES * CT Chest Abdomen Pelvis [...] have questions please contact the health healthcare management consultant that requested your imaging first. ? Electronically signed by: Leo Camilo MD, [facility] ([phone]), at 01/06/2023 4:13 PM Narrative 01/06/2023 4:13 [...] who have questions please contactthe health healthcare management consultant that requested your imaging first. Arturo Cordero MD IMG CT ORDERABLES documented in this encounter Visit Diagnoses Diagnosis Malignant melanoma of conjunctiva, left- Primary Renal cell cancer, left Malignant melanoma of conjunctiva, left Renal cell cancer, left Malignant melanoma of conjunctiva, left Renal cell cancer, left documented in this encounter Care Teams Plug Cutting Machine Operator Relationship Specialty Start Date End Date Rodney Padilla MD PCP - General 07/18/22 04/09/24 documented as of this encounter
--- OUTSIDE RECORDS SUMMARY | 2024-06-07 13:32 | XMS_ITS | Encounter Summary ---
Author Organization [facility] Address [facility] [place] [address] Care Team Providers Care Certified Pharmacy Tech Name Role Phone Daryn Garrett MD Primary Care Provider Reason for Visit * Reason Comments Medication Refill Encounter Details Date Type Department Care Team (Late st Contact Info) Description 04/02/2023 Refill Family Medicine at [facility] [address] [place] [address] Luis E Narayan MD [facility] DR LILI [place] [address] Social History Tobacco Use Types Packs/Day Years [...] AM EST Office Visit Internal Medicine at [place] [address] [address] [phone] Daryn Garrett MD [facility] DR LILI [place] [address] 10/02/2024 1:00 PM EDT Office [place] [phone] Juanpablo Hernandez MD [facility] [place] [address] 01/30/2025 1:30 PM EDT Laboratory Appointment Lab at [facility] Hematology Oncology [address] [place] [phone] 01/30/2025 3:[address] [place] [address] Arturo Cordero MD [facility] [place] [address] 01/30/2025 4:15 PM EDT Office Visit Hematology [place] [address] Arturo Cordero MD [facility] [place] [address] Scheduled Procedures Name Priority Associated Diagnoses Date/Ti me EGD, UPPER GI ENDOSCOPY (WRV U 2.09) Irritable bowel syndrome with constipation COLONOSCOPY, DIAGNOSTIC (WRV U 3.26) Irritable bowel syndrome with constipation documented as of this encounter Visit Diagnoses Not on filedocumented in this encounter Care Teams Certified Pharmacy Tech Relationship Specialty Start Date End Date Daryn Garrett MD [facility] [address] [place] [address] PCP - General 04/10/24 documented as of this encounter
--- OUTSIDE RECORDS SUMMARY | 2024-06-07 13:32 | XMS_ITS | Encounter Summary ---
Author Organization [facility] Address [facility] [place] [address] Care Team Providers Care Intervention Analyst Name Role Phone Rodney Padilla MD [...] EST Office Visit Internal Medicine at [facility] [address] [place] [address] Daryn Garrett MD [facility] DR LILI [place] [address] 10/02/2024 1:00 PM EDT Office [place] [phone] Juanpablo Hernandez MD [facility] [place] [address] 01/30/2025 1:30 PM EDT Laboratory Appointment Lab at [facility] Hematology Oncology [address] [place] [phone] 01/30/2025 3:[address] [place] [place] [address] Arturo Cordero MD [facility] [place] [address] 01/30/2025 4:15 PM EDT Office Visit [place]ology [place] [address] Arturo Cordero MD [facility] [place] [address] Scheduled Procedures Name Priority Associated Diagnoses Date/Ti me EGD, UPPER GI ENDOSCOPY (WRV U 2.09) Irritable bowel syndrome with constipation COLONOSCOPY, DIAGNOSTIC (WRV U 3.26) Irritable bowel syndrome with constipation documented as of this encounter Visit Diagnoses Not on filedocumented in this encounter Care Teams Intervention Analyst Relationship Specialty Start Date End Date Rodney Padilla MD PCP - General 07/18/22 04/09/24 documented as of this encounter
--- OUTSIDE RECORDS SUMMARY | 2024-06-07 13:32 | XMS_ITS | Encounter Summary ---
Author Organization [facility] Address [facility] [place] [address] Care Team Providers Care Hospital Liaison Name Role Phone Rodney Padilla MD Primary Care Provider Reason for Visit * Reason Onset Date Comments Medication Refill 03/21/2023 Encounter Details Date Type Department Care Team (Late st Contact Info) Description 03/21/2023 Refill Family Medicine at [facility] [address] [place] [address] Tamera Khan APRN [facility] DR LILI [place] [address] Social History Tobacco Use Types Packs/Day Years [...] AM EST Office Visit Internal Medicine at [facility] [address] [place] [address] Daryn Garrett MD [facility] DR LILI [place] [address] 10/02/2024 1:00 PM EDT Office [place] [phone] Juanpablo Hernandez MD [facility] [place] [address] 01/30/2025 1:30 PM EDT Laboratory Appointment Lab at [facility] Hematology Oncology [address] [place] [phone] 01/30/2025 3:[address] [place] [phone] Arturo Cordero MD [facility] [place] [address] 01/30/2025 4:15 PM EDT Office Visit Hematology [place] [phone] Arturo Cordero MD [facility] [place] [address] Scheduled Procedures Name Priority Associated Diagnoses Date/Ti me EGD, UPPER GI ENDOSCOPY (WRV U 2.09) Irritable bowel syndrome with constipation COLONOSCOPY, DIAGNOSTIC (WRV U 3.26) Irritable bowel syndrome with constipation documented as of this encounter Visit Diagnoses Not on filedocumented in this encounter Care Teams Hospital Liaison Relationship Specialty Start Date End Date Rodney Padilla MD PCP - General 07/18/22 04/09/24 documented as of this encounter
--- OUTSIDE RECORDS SUMMARY | 2024-06-07 13:32 | XMS_ITS | Encounter Summary ---
Author Organization [facility] [place] [place] [address] Care Team Providers Care Mushroom Spawn Maker Name Role Phone Rodney Padilla MD Primary Care Provider Encounter Details Date Type Department Care Team (Late st Contact Info) Description 02/20/2023 Telephone Family Medicine at [address] [place] [phone] Rani Menard, RN Social History Tobacco Use [...] - 02/20/2023 11:06 AM EDT Copied from [facility] #[id number]. Topic: Triage - Triage >> Feb 20, 2023 10:40 AM Alba Richard wrote: Symptom: Knee Pain (spoke with AMCM) PCP: RODNEY PADILLA Additional Comments: AMCM advised a message be placed as patient is requesting an appointment on 02/22 for a cortizone shot for her severe knee pain. [facility] advised patient to be seen within 24 hours but patient declined. documented in this encounter Plan of Treatment Upcoming Encounters Date Type Department Care Team (Late st Contact Info) Description 06/28/2024 9:30 AM EST Office Visit Internal Medicine at [place] [address] [place] [address] Daryn Garrett MD [facility] DR LILI [place] [address] 10/02/2024 1:00 PM EDT Office [place] [phone] Juanpablo Hernandez MD [facility] [address] 01/30/2025 1:30 PM EDT Laboratory Appointment Lab at [facility] Hematology Oncology [address] [place] [phone] 01/30/2025 3:[address] [place] [address] Arturo Cordero MD [facility] [place] [address] 01/30/2025 4:15 PM EDT Office Visit Hematology [place] [phone] Arturo Cordero MD [facility] DR [place] [address] Scheduled Procedures Name Priority Associated Diagnoses Date/Ti me EGD, UPPER GI ENDOSCOPY (WRV U 2.09) Irritable bowel syndrome with constipation COLONOSCOPY, DIAGNOSTIC (WRV U 3.26) Irritable bowel syndrome with constipation documented as of this encounter Visit Diagnoses Not on filedocumented in this encounter Care Teams Mushroom Spawn Maker Relationship Specialty Start Date End Date Rodney Padilla MD PCP - General 07/18/22 04/09/24 documented as of this encounter
--- OUTSIDE RECORDS SUMMARY | 2024-06-07 13:32 | XMS_ITS | Encounter Summary ---
Author Organization [facility] [place] [address] Care Team Providers Care Food Beverage Supervisor Name Role Phone Rodney Padilla MD Primary Care Provider [phone] Reason for Referral * Consultation (Routine) - Closed Specialty Diagnoses / Procedures Referred By Gonzalez kumari Referred To Contact Diagnoses Chronic pain of right knee Calli Mariscal MD [facility] [place] [address] Orthopaedics, Four [address] [place] [address] Referral ID Status Reason Start Date Expiration Date V isits Requested Visits Authorized [id number] Closed Consult, Test & Treat 02/22/2023 08/21/2023 1 1 Reason for Visit * Reason Comments Bilateral Knee Pain Rt is worse Referral To Ortho Encounter Details Date Type Department Care Team (Late st Contact Info) Description 02/22/2023 11:30 AM EDT Office Visit Family Medicine at [facility] [address] [place] [address] Calli Mariscal MD [facility] [place] [address] Chronic pain of right knee Social History [...] 02/22/2023 11:30 AM EDT FAMILY MEDICINE AT [facility] [address] [facility] [address] Subjective: CHART REVIEW: Patient ID: Alize Gramajo [...] List Diagnosis Code 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 Yes fluticasone propionate (Flonase) 50 mcg/actuation [place], Suspension 1 spray by Each Nare route [...] Yes Nebulizer Accessories Misc 1 each by [facility].(Non-Drug; Combo Route) route every 4 hours as [...] AM EST Office Visit Internal Medicine at [address] [phone] Daryn Garrett MD [facility] DR LILI WALKER - [place] [address] 10/02/2024 1:00 PM EDT Office [place] [address] Juanpablo Hernandez MD [facility] [place] [address] 01/30/2025 1:30 PM EDT Laboratory Appointment Lab at [facility] Hematology Oncology [address] [place] [phone] 01/30/2025 3:[address] [place] [phone] Arturo Cordero MD [facility] DR HEMATOLOGY [place] [address] 01/30/2025 4:15 PM EDT Office Visit Hematology [place] [phone] Arturo Cordero MD [facility] DR HEMATOLOGY [place] [address] Scheduled Procedures Name Priority Associated Diagnoses Date/Ti [...] knee documented in this encounter Care Teams Food Beverage Supervisor Relationship Specialty Start Date End Date Rodney Padilla MD PCP - General 07/18/22 04/09/24 documented as of this encounter
--- OUTSIDE RECORDS SUMMARY | 2024-06-07 13:32 | XMS_ITS | Encounter Summary ---
Author Organization [facility] Address [facility] [place] [address] Care Team Providers Care Residential Real Estate Assistant Name Role Phone Rodney Padilla MD [...] AM EST Office Visit Internal Medicine at [facility] [address] [place] [address] Daryn Garrett MD [facility] DR LILI WALKER [place] [address] 10/02/2024 1:00 PM EDT [place] [phone] Juanpablo Hernandez MD [facility] [place] [address] 01/30/2025 1:30 PM EDT Laboratory Appointment Lab at [facility] Hematology Oncology [address] [place] [phone] 01/30/2025 3:[address] [place] [place] [phone] Arturo Cordero MD [facility] HEMATOLOGY [place] [address] 01/30/2025 4:15 PM EDT Office Visit [place] [address] Arturo Cordero MD [facility] DR HEMATOLOGY [place] [address] Scheduled Procedures Name Priority Associated Diagnoses Date/Ti me EGD, UPPER GI ENDOSCOPY (WRV U 2.09) Irritable bowel syndrome with constipation COLONOSCOPY, DIAGNOSTIC (WRV U 3.26) Irritable bowel syndrome with constipation documented as of this encounter Visit Diagnoses Not on filedocumented in this encounter Care Teams Residential Real Estate Assistant Relationship Specialty Start Date End Date Rodney Padilla MD PCP - General 07/18/22 04/09/24 documented as of this encounter
--- OUTSIDE RECORDS SUMMARY | 2024-06-07 13:32 | XMS_ITS | Encounter Summary ---
Author Organization [facility] Address [facility] [place] [address] Care Team Providers Care Coremaker Bench Name Role Phone Rodney Padilla MD Primary Care Provider Reason for Visit * Reason Comments Diabetes Encounter Details Date Type Department Care Team (Late st Contact Info) Description 01/05/2023 9:00 AM EDT TH Visit (TeleHealth) Family Medicine at [facility] [address] [place] [phone] Julia Low, [facility] Type 2 diabetes mellitus without long-term [...] this encounter Progress Notes * Julia Low [facility] - 01/05/2023 9:00 AM EDT Clinical Pharmacist [...] any of the following conditions: Yes [x] AK/Stroke/CAD [] Retinopathy [] CHF [x] Neuropathy [] [...] 164 191 159 Daily Avg 176 eA1c [id number] Prior Averages: 08/26/21 09/09/21 09/24/21 11/14/21 11/03/22 12/01/22 Daily Avg 157 168 131 138 175 153 eA1c 8.97713 8.46 7.20 7.44 8.7 7.95 Acute complications [...] tablet 5 fluticasone propionate (Flonase) 50 mcg/actuation [place], Suspension 1 spray by Each Nare route [...] 1 Nebulizer Accessories Misc 1 each by [facility].(Non-Drug; Combo Route) route every 4 hours as [...] spacer 1 each 11 FreeStyle Sanjana 2 [place] Misc 1 each by Other route daily. [...] EST Office Visit Internal Medicine at [address] [phone] [facility] DR LILI WALKER [place] [address] 10/02/2024 1:00 PM EDT Office [place] [phone] [facility] [place] [address] 01/30/2025 1:30 PM EDT Laboratory Appointment Lab at [facility] Hematology Oncology [address] [place] [phone] 01/30/2025 3:[address] [place] [phone] [facility] DR HEMATOLOGY AND ONCOLOGY [place], [place] [phone] 01/30/2025 4:15 PM EDT Office Visit Hematology [place] [address] [facility] DR HEMATOLOGY [place] [address] Scheduled Procedures Name Priority Associated Diagnoses Date/Ti me EGD, UPPER GI ENDOSCOPY (WRV U 2.09) Irritable bowel syndrome with constipation COLONOSCOPY, DIAGNOSTIC (WRV U 3.26) Irritable bowel syndrome with constipation documented as of this encounter Visit Diagnoses Diagnosis Type 2 diabetes mellitus without long-term current use of insulin documented in this encounter Care Teams Coremaker Bench Relationship Specialty Start Date End Date Rodney Padilla MD PCP - General 07/18/22 04/09/24 documented as of this encounter
--- OUTSIDE RECORDS SUMMARY | 2024-06-07 13:32 | XMS_ITS | Encounter Summary ---
Author Organization [facility] Address [facility] [place] [address] Care Team Providers Care Branch Controller Name Role Phone Rodney Padilla MD Primary [...] AM EST Office Visit Internal Medicine at [facility] [address] [place] [address] Daryn Garrett MD [facility] DR LILI WALKER [place] [address] 10/02/2024 1:00 PM EDT Office [place] [phone] Juanpablo Hernandez MD [facility] [place] [address] 01/30/2025 1:30 PM EDT Laboratory Appointment Lab at [facility] Hematology Oncology [address] [place] [phone] 01/30/2025 3:[address] [place] [phone] Arturo Cordero MD [facility] HEMATOLOGY [place] [address] 01/30/2025 4:15 PM EDT Office Visit Hematology [place] [address] Arturo Cordero MD [facility] DR HEMATOLOGY [place] [address] Scheduled Procedures Name Priority Associated Diagnoses Date/Ti me EGD, UPPER GI ENDOSCOPY (WRV U 2.09) Irritable bowel syndrome with constipation COLONOSCOPY, DIAGNOSTIC (WRV U 3.26) Irritable bowel syndrome with constipation documented as of this encounter Visit Diagnoses Not on filedocumented in this encounter Care Teams Branch Controller Relationship Specialty Start Date End Date Rodney Padilla MD PCP - General 07/18/22 04/09/24 documented as of this encounter
--- OUTSIDE RECORDS SUMMARY | 2024-06-07 13:32 | XMS_ITS | Encounter Summary ---
Author Organization [facility] Address [facility] [place] [address] Care Team Providers Care Coat Fitter Name Role Phone Rodney Padilla MD Primary Care Provider Reason for Visit * Reason Onset Date Comments Medication Refill 03/21/2023 Encounter Details Date Type Department Care Team (Late st Contact Info) Description 03/21/2023 Refill Family Medicine at [facility] [address] [place] [address] Suzanne Martinez APRN [facility] DR LIL[place] [address] Social History Tobacco Use Types Packs/Day Years [...] Encounter - Lucien Moore CMA - 03/22/2023 9:58 AM EDT Prescription Renewal [...] EST Office Visit Internal Medicine at [address] [phone] Daryn Garrett MD [facility] DR [place] [address] 10/02/2024 1:00 PM EDT Office [place] [phone] Juanpablo Hernandez MD [facility] [place] [address] 01/30/2025 1:30 PM EDT Laboratory Appointment Lab at [facility] Hematology Oncology [address] [place] [phone] 01/30/2025 3:[address] [place] [phone] Arturo Cordero MD [facility] [place] [address] 01/30/2025 4:15 PM EDT Office Visit [place] [address] Arturo Cordero MD [facility] [place] [address] Scheduled Procedures Name Priority Associated Diagnoses Date/Ti me EGD, UPPER GI ENDOSCOPY (WRV U 2.09) Irritable bowel syndrome with constipation COLONOSCOPY, DIAGNOSTIC (WRV U 3.26) Irritable bowel syndrome with constipation documented as of this encounter Visit Diagnoses Not on filedocumented in this encounter Care Teams Coat Fitter Relationship Specialty Start Date End Date Rodney Padilla MD PCP - General 07/18/22 04/09/24 documented as of this encounter
--- OUTSIDE RECORDS SUMMARY | 2024-06-07 13:32 | XMS_ITS | Encounter Summary ---
Author Organization [facility] [place] [address] Care Team Providers Care Sexual Abuse Counsellor Name Role Phone Rodney Padilla MD Primary Care Provider Reason for Visit * Reason Onset Date Comments Medication Refill 02/04/2023 Encounter Details Date Type Department Care Team (Late st Contact Info) Description 02/04/2023 Refill Family Medicine at [facility] [address] [place] [address] Bereket Latham PA [facility] [place] [address] COPD Social History Tobacco Use Types Packs/Day [...] EST Office Visit Internal Medicine at [facility] [address] [place] [address] Daryn Garrett MD [facility] DR [place] [address] 10/02/2024 1:00 PM EDT Office [place] [phone] Juanpablo Hernandez MD [facility] [place] [address] 01/30/2025 1:30 PM EDT Laboratory Appointment Lab at [facility] Hematology Oncology [address] [place] [phone] 01/30/2025 3:[address] [place] [phone] Arturo Cordero MD [facility] [place] [address] 01/30/2025 4:15 PM EDT Office Visit Hematology [place] [address] Arturo Cordero MD [facility] [place] [address] Scheduled Procedures Name Priority Associated Diagnoses Date/Ti me EGD, UPPER GI ENDOSCOPY (WRV U 2.09) Irritable bowel syndrome with constipation COLONOSCOPY, DIAGNOSTIC (WRV U 3.26) Irritable bowel syndrome with constipation documented as of this encounter Visit Diagnoses Diagnosis COPD Simple chronic bronchitis documented in this encounter Care Teams Sexual Abuse Counsellor Relationship Specialty Start Date End Date Rodney Padilla MD PCP - General 07/18/22 04/09/24 documented as of this encounter
--- OUTSIDE RECORDS SUMMARY | 2024-06-07 13:32 | XMS_ITS | Encounter Summary ---
Author Organization [facility] [place] [address] Care Team Providers Care Dry Cell Sealer Name Role Phone Rodney Padilla MD Primary Care Provider Encounter Details Date Type Department Care Team (Latest Contact Info) Description 12/29/2022 9:45 AM EDT - 12/29/2022 11:59 PM EDT Hospital Encounter [place]ematology [place] [address] Malignant melanoma of conjunctiva, left Discharge Disposition: [...] needles, disposable, 32 gauge x 5/32 NeedleIndications:true betnel mellitus Inject 1 each subcutaneously [...] applicator vaginally nightly. 45 g 04/21/2022 06/20/2023 LORazepam (Ativan) 0.5 mg TabletIndications:anx iety Take 0.5 mg by mouth every 8 hours. Indications: anxious 04/04/2022 05/27/2024 amoxicillin-clavulana te (Augmentin) 875-125 mg Tablet TAKE [...] 1 each 12/10/2021 02/04/2023 FreeStyle Sanjana 2 [place] MiscIndications:diabe escobar mellitus 1 each by Other [...] EST Office Visit Internal Medicine at [address] [phone] Daryn Garrett MD [facility] DR LILI [place] [address] 10/02/2024 1:00 PM EDT Office [place] [phone] Juanpablo Hernandez MD [facility] [place] [address] 01/30/2025 1:30 PM EDT Laboratory Appointment Lab at [facility] Hematology Oncology [address] [place] [phone] 01/30/2025 3:[address] [place] [phone] Arturo Cordero MD [facility] DR [place] [address] 01/30/2025 4:15 PM EDT Office Visit Hematology and Oncology at [facility] [place] [phone] Arturo Cordero MD [facility] DR [place] [address] Scheduled Procedures Name Priority Associated Diagnoses Date/Ti [...] 10:00 AM EDT) Neutrophil % 66.5 % [facility] Neutrophil Absolute 4.82 1.70 - 6.10 x10(3)/[facility] LABORATORY Lymph % 24.4 % [facility] Lymphocytes Abs 1.8 0.9 - 3.2 x10(3)/[facility] LABORATORY Monocyte % 6.4 % [facility] HOSP ITAL LAB[facility] Monocyte Abs 0.5 0.3 - 0.9 x10(3)/[facility] LABORATORY Eos % 1.7 % [facility] Eosinophils Abs 0.1 0.0 - 0.4 x10(3)/[facility] LABORATORY Basophil % 0.7 % [facility] Baso Absolute 0.0 0.0 - 0.1 x10(3)/[facility] LABORATORY Immature Gran % 0.30 % [facility] Comment: Immature granulocytes(IG's)percentage and absolute count will include metamyelocytes, myelocytes, and promyelocytes. Blood smears from CBCs yielding IG's will be scanned manually for concordance. If this scan disagrees with the automated IG or if promyelocytes are noted, a manual differential will be performed. Immature Gran Absolute 0.02 0.00 - 0.04 x10(3)/[facility] LABORATORY Blood 12/29/2022 10:0 0 AM EDT 12/29/2022 10:13 AM EDT Narrative Resulting Agency Comment Spec In Lab Mer Samy Trejo MD HEMATOLOGY ORDER SHYLA [facility] [address] * (ABNORMAL) Hemogram (12/29/2022 10:00 AM EDT) White Blood Cell 7.2 4.0 - 9.5 x10(3)/mc L [facility] Red Blood Cell 4.67 4.00 - 5.21 x10(6)/mc L [facility] Hemoglobin 13.1 11.7 - 15.5 g/dL [facility] Hematocrit 39.8 35.7 - 45.8 % [facility] Mean Cell Volume 85.2 82.6 - 94.4 fL [facility] Mean Cell Hemoglobin 28.1 27.1 - 32.0 pg [facility] Mean Cell Hemoglobin Concentration 32.9 31.7 - 35.0 g/dL [facility] Platelet 362(H) 145 - 357 x10(3)/mc L [facility] RDW Standard Deviation 45.0 37.0 - 46.0 fL [facility] RDW coefficient of variation 14.6(H) 11.5 - 14.1 % [facility] Mean Platelet Volume 9.3 7.6 - 12.9 fL [facility] NRBC% auto 0.0 % [facility] HOS[facility] ITAL LABORAT[facility] NRBC Absolute 0.000 0.000 - 0.000 x10(3)/mc L [facility] Blood 12/29/2022 10:0 0 AM EDT 12/29/2022 10:13 AM EDT Narrative Resulting Agency Comment Spec In Lab Mer Samy Trejo MD HEMATOLOGY ORDER SHYLA [facility] [address] [place] [address] * (ABNORMAL) Comprehensive metabolic panel (non-fasting) (12/29/2022 10:00 AM EDT) Glucose 259(H) 65 - 199 mg/dL [facility] Comment:Diabetes: >=200 mg/d L plus symptoms Blood Urea Nitrogen 17 8 - 18 mg/dL [facility] Creatinine 0.84 0.70 - 1.20 mg/dL [facility] Sodium 140 135 - 145 mmol/L [facility] Potassium 4.5 3.5 - 5.0 mmol/L [facility] Comment: Please note: ??Patients with WBC >100,000 may have falsely elevated Potassium levels. ??For accurate Potassium quantification in these patients send serum separator tube (gold top) for subsequent determinations. ??Contact the Clinical Chemistry Laboratory if there are any questions. Chloride 104 98 - 107 mmol/L [facility] Carbon Dioxide 23 22 - 31 mmol/L [facility] Anion Gap 13 5 - 15 mmol/L [facility] Calcium 9.5 8.5 - 10.5 mg/dL [facility] Protein, Total 6.9 6.1 - 8.0 g/dL [facility] Albumin 4.1 3.2 - 5.2 g/dL [facility] Aspartate Aminotransferase 19 0 - 30 unit/L [facility] Alanine Aminotransferase 24 0 - 30 unit/L [facility] Alkaline Phosphatase 103 35 - 105 unit/L [facility] Bilirubin, Total 0.3 0.2 - 1.3 mg/dL [facility] Est Glomerular Filtration Rate 78 >=60 mL/min/1. 73 m?? [facility] Comment: This patient's estimated GFR was [...] Cordero MD CHEMISTRY ORDERABLES Performing Organization Address [facility] Co de Phone Number [facility] [address] * Lactate Dehydrogenase (12/29/2022 10:00 AM EDT) Lactate Dehydrogenase 175 110 - 220 unit/L [facility] Blood 12/29/2022 10:0 0 AM EDT 12/29/2022 10:13 AM EDT Narrative Resulting Agency Comment Spec In Lab Arturo Cordero MD CHEMISTRY ORDERABLES Performing Organization Address [facility]/ZIP Co de Phone Number [facility] [address] documented in this encounter Visit Diagnoses Diagnosis Malignant melanoma of conjunctiva, left documented in this encounter Care Teams Dry Cell Sealer Relationship Specialty Start Date End Date Rodney Padilla MD PCP - General 07/18/22 04/09/24 documented as of this encounter
--- OUTSIDE RECORDS SUMMARY | 2024-06-07 13:32 | XMS_ITS | Encounter Summary ---
Author Organization [facility] Address [facility] [place] [address] Care Team Providers Care Enrollment Nurse Name Role Phone Rodney Padilla MD Primary Care Provider Reason for Visit * Reason Comments Medication Refill Encounter Details Date Type Department Care Team (Late st Contact Info) Description 12/15/2022 Refill Family Medicine at [facility] [address] [place] [address] Luis E Narayan MD [facility] DR LILI WALKER-[place] [address] Mixed hyperlipidemia Social History Tobacco Use Types [...] AM EST Office Visit Internal Medicine at [facility] [address] [place] [address] Daryn Garrett MD [facility] DR LILI WALKER [place] [address] 10/02/2024 1:00 PM EDT Office [place] [phone] Juanpablo Hernandez MD [facility] [place] [address] 01/30/2025 1:30 PM EDT Laboratory Appointment Lab at [facility] [place] Oncology [address] [place] [phone] 01/30/2025 3:[address] [place] [phone] Arturo Cordero MD [facility] DR HEMATOLOGY [place] [address] 01/30/2025 4:15 PM EDT Office Visit Hematology [place] [address] Arturo Cordero MD [facility] HEMATOLOGY [place] [address] Scheduled Procedures Name Priority Associated Diagnoses Date/Ti me EGD, UPPER GI ENDOSCOPY (WRV U 2.09) Irritable bowel syndrome with constipation COLONOSCOPY, DIAGNOSTIC (WRV U 3.26) Irritable bowel syndrome with constipation documented as of this encounter Visit Diagnoses Diagnosis Mixed hyperlipidemia documented in this encounter Care Teams Enrollment Nurse Relationship Specialty Start Date End Date Rodney Padilla MD PCP - General 07/18/22 04/09/24 documented as of this encounter
--- OUTSIDE RECORDS SUMMARY | 2024-06-07 13:32 | XMS_ITS | Encounter Summary ---
Author Organization [facility] [place] [address] Care Team Providers Care Environmental Programs Manager Name Role Phone Rodney Padilla MD Primary Care Provider [phone] Encounter Details Date Type Department Care Team (Late st Contact Info) Description 02/20/2023 [place] [phone] Lakshmi Castellanos, RN Social History Tobacco Use [...] Work Phone: Work Phone: Gender: Female Time: [place] [address] Address: [place] [address] Address: PCP: Unknown, -[address] - Relationship to Caller: Self Org: [facility] [address] Chief Complaint: KNEE Call Outcome: See MD Within 24 Hours Client: Company: [employer] PhoneLine1: [facility], Triage Patient: Alize Gramajo Caller Is: Alize [...] -patient states she [facility] and wants to [...] LB1 Guideline: Knee Pain - (Adult After-Hours) [[id number]] Triage Level: Pre Disposition: RN Override: See Physician within 24 Hours See/call Doctor Disagree Reason: Go to Facility: Patient Understands Instructions: Yes Questions / Responses For: Knee Pain - (Adult After-Hours) [[id number]] TRIAGE QUESTION (TRIGGERING DISPOSITION) Response [1] Very swollen joint AND [2] no fever R/O: forgotten trauma, arthritis CARE ADVICE Response 1. CARE ADVICE given per Knee Pain (Adult) guideline. Alize Gramajo Triage #: [id number] - [KNEE] Page 1 of 2 MD Paging: Paged Paged Date & Time Sent By Paging Method Device Address Status of page Message: Lakshmi Castellanos MD- Lili Azevedo Unknown Responded 02/20/2023 10:43:50 AM EXTERNAL EXTERNAL see physician within 24 hours: 7. CALL BACK IF: * Fever occurs * You become worse. 44. SEE PCP OR VIDEO VISIT WITHIN 24 HOURS: * IF OFFICE WILL BE OPEN: You need to be examined within the next 24 hours or have a video telemedicine visit. Call your doctor (or TAN ROOM SUPERVISOR/PA) when the office opens and make an appointment. 1001. PAIN MEDICINES: * For pain relief, you can take either acetaminophen, ibuprofen, or naproxen. * Before taking any medicine, read all the instructions on the package. Alize Gramajo Triage #: [id number] - [KNEE] Page 2 of 2 documented in this encounter Plan of Treatment Upcoming Encounters Date Type Department Care Team (Late st Contact Info) Description 06/28/2024 9:30 AM EST Office Visit Internal Medicine at [place] [address] [place] [address] Daryn Garrett MD [facility] DR [place] [address] 10/02/2024 1:00 PM EDT Office [place] [phone] Juanpablo Hernandez MD [facility] [place] [address] 01/30/2025 1:30 PM EDT Laboratory Appointment Lab [place] [facility] [place] On[place] [address] [place] [phone] 01/30/2025 3:[address] [place] [place] [phone] Arturo Cordero MD [facility] [place] [address] 01/30/2025 4:15 PM EDT Office Visit [place]ology [place] [phone] Arturo Cordero MD [facility] [place] [address] Scheduled Procedures Name Priority Associated Diagnoses Date/Ti me EGD, UPPER GI ENDOSCOPY (WRV U 2.09) Irritable bowel syndrome with constipation COLONOSCOPY, DIAGNOSTIC (WRV U 3.26) Irritable bowel syndrome with constipation documented as of this encounter Visit Diagnoses Not on filedocumented in this encounter Care Teams Environmental Programs Manager Relationship Specialty Start Date End Date Rodney Padilla MD PCP - General 07/18/22 04/09/24 documented as of this encounter
--- OUTSIDE RECORDS SUMMARY | 2024-06-07 13:32 | XMS_ITS | Encounter Summary ---
Author Organization [facility] [place] [address] Care Team Providers Care Electric Stove Installer Name Role Phone Rodney Padilla MD Primary Care Provider [phone] Reason for Referral * Diagnostic Test (Routine) - Closed Specialty Diagnoses / Procedures Referred By Contac t Referred To Contact Radiology Diagnoses Malignant melanoma of conjunctiva, left Procedures CT Neck Soft Tissue w Contrast (Generic) Arturo Cordero MD [facility] [place] [address] [facility] [place] [address] Referral ID Status Reason Start Date Expiration Date V isits Requested Visits Authorized [id number] Closed Specialty Service Requested 12/29/2022 06/30/2024 1 1 * Diagnostic Test (Routine) - Closed Specialty Diagnoses / Procedures Referred By Contac t Referred To Contact Radiology Diagnoses Malignant melanoma of conjunctiva, left Renal cell cancer, left Procedures CT Chest Abdomen Pelvis w Contrast (Generic) Arturo Cordero MD [facility] [address] [place] [address] [facility] [place] [address] Referral ID Status Reason Start Date Expiration Date V isits Requested Visits Authorized [id number] Closed Specialty Service Requested 12/29/2022 06/30/2024 1 1 Reason for Visit * Diagnostic Test (Routine) - Closed Specialty Diagnoses / Procedures Referred By Contac t Referred To Contact Radiology Diagnoses Malignant melanoma of conjunctiva, left Renal cell cancer, left Procedures CT Chest Abdomen Pelvis w Contrast (Generic) Arturo Cordero MD [facility] [address] [place] [address] [facility] [place] [address] Referral ID Status Reason Start Date Expiration Date V isits Requested Visits Authorized [id number] Closed Specialty Service Requested 12/29/2022 06/30/2024 1 1 Encounter Details Date Type Department Care Team (Latest Contact Info) Description 01/06/2023 12:18 PM EDT - 01/06/2023 11:59 PM EDT Hospital [place] [address] Arturo Cordero MD [facility] [address] [place] [address] Malignant melanoma of conjunctiva, left; [...] 09/26/2022 09/19/2023 fluticasone propionate (Flonase) 50 mcg/actuation [place], Suspension 1 spray by Each Nare route [...] 1 each 12/10/2021 02/04/2023 FreeStyle Sanjana 2 [place] MiscIndications:diabe escobar mellitus 1 each by [...] AM EST Office Visit Internal Medicine at [address] [phone] Daryn Garrett MD [facility]I [place] [address] 10/02/2024 1:00 PM EDT Office [place] [address] Juanpablo Hernandez MD [facility] [place] [address] 01/30/2025 1:30 PM EDT Laboratory Appointment Lab at [facility] Hematology Oncology [address] [place] [phone] 01/30/2025 3:[address] [place] [address] Arturo Cordero MD [facility] [place] [address] 01/30/2025 4:15 PM EDT Office Visit Hematology [place] [address] Arturo Cordero MD [facility] [address] [place] [address] Scheduled Procedures Name Priority Associated Diagnoses Date/Ti [...] have questions please contact the health career guidance technician that requested your imaging first. ? Electronically signed by: Milo Kaye MD, [facility] ([phone]), at 01/09/2023 8:59 AM Narrative 01/09/2023 8:59 AM EDT EXAMINATION: CT [...] after the intravenous administration of 110 mL [id number]. COMPARISON: CT neck 06/23/2022 FINDINGS: No large [...] who have questions please contactthe health career guidance technician that requested your imaging first. Electronically signed by: Milo Kaye MD, [facility]([phone]), at 01/09/2023 8:59 AM Arturo Cordero MD [facility] [place] ORDERABLES * CT Chest Abdomen Pelvis [...] have questions please contact the health career guidance technician that requested your imaging first. ? Electronically signed by: Leo Camilo MD, [facility] ([phone]), at 01/06/2023 4:13 PM Narrative 01/06/2023 4:13 [...] who have questions please contactthe health career guidance technician that requested your imaging first. Electronically signed by: Leo Camilo MD, [facility]([phone]), at 01/06/2023 4:13 PM Arturo Cordero MD IMG CT ORDERABLES [...] mLs documented in this encounter Care Teams Electric Stove Installer Relationship Specialty Start Date End Date Rodney Padilla MD PCP - General 07/18/22 04/09/24 documented as of this encounter
--- OUTSIDE RECORDS SUMMARY | 2024-06-07 13:32 | XMS_ITS | Encounter Summary ---
Author Organization [facility] Address [facility] [place] [address] Care Team Providers Care Client Architect Name Role Phone Rodney Padilla MD Primary Care Provider [phone] Reason for Visit * Reason Onset Date Comments Medication Refill 03/21/2023 Encounter Details Date Type Department Care Team (Late st Contact Info) Description 03/21/2023 Refill Family Medicine at [facility] [address] [place] [address] Luis E Narayan MD [facility] DR LIL[place] [address] Essential hypertension Social History Tobacco Use Types [...] AM EST Office Visit Internal Medicine at [address] [phone] Daryn Garrett MD [facility] DR LIL[place] [address] 10/02/2024 1:00 PM EDT Office [place] [phone] Juanpablo Hernandez MD [facility] [place] [address] 01/30/2025 1:30 PM EDT Laboratory Appointment Lab at [facility] [place] On[place] [address] [place] [phone] 01/30/2025 3:[address] [place] [phone] Arturo Cordero MD [facility] [place] [address] 01/30/2025 4:15 PM EDT Office Visit Hematology [place] [address] Arturo Cordero MD [facility] DR [place] [address] Scheduled Procedures Name Priority Associated Diagnoses Date/Ti me EGD, UPPER GI ENDOSCOPY (WRV U 2.09) Irritable bowel syndrome with constipation COLONOSCOPY, DIAGNOSTIC (WRV U 3.26) Irritable bowel syndrome with constipation documented as of this encounter Visit Diagnoses Diagnosis Essential hypertension Unspecified essential hypertension documented in this encounter Care Teams Client Architect Relationship Specialty Start Date End Date Rodney Padilla MD PCP - General 07/18/22 04/09/24 documented as of this encounter
--- OUTSIDE RECORDS SUMMARY | 2024-06-07 13:32 | XMS_ITS | Encounter Summary ---
Author Organization [facility] [place] [address] Care Team Providers Care County Historian Name Role Phone Rodney Padilla MD Primary Care Provider [phone] Encounter Details Date Type Department Care Team (Latest Contact Info) Description 02/28/2023 4:00 PM EDT TH Visit (TeleHealth) Family Medicine at [facility] [address] [place] [address] Rodney Padilla MD [address] [place] [address] [place] [address] Type 2 diabetes mellitus without complication, with [...] Patient location: Home address on file: [address] [place] [phone] Mode of communication documented under telehealth requirements as appropriate Callback number if video visit: Preferred phone number on file: [phone] CHART REVIEW Patient unable to come to [...] List Diagnosis Code 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 Indications: diabetes 100 each 11 nitroGLYcerin (Nitrostat) 0.[address] 1 tablet under the tongue See Admin Instructions. 30 tablet 5 fluticasone propionate (Flonase) 50 mcg/actuation [place], Suspension 1 spray by Each Nare route [...] patient/family/caregiver Referring and communicating with other health pet care worker Documenting clinical information in the electronic or other health record Independently interpreting results Care coordination documented in this encounter Plan of Treatment Upcoming Encounters Date Type Department Care Team (Late st Contact Info) Description 06/28/2024 9:30 AM EST Office Visit Internal Medicine at [address] [phone] Daryn Garrett MD [facility] DR LILI WALKER [place] [address] 10/02/2024 1:00 PM EDT Office [place] [phone] Juanpablo Hernandez MD [facility] [place] [address] 01/30/2025 1:30 PM EDT Laboratory Appointment Lab at [facility] [place] [address] [place] [phone] 01/30/2025 3:[address] [place] [address] Arturo Cordero MD [facility] DR HEMATOLOGY [place] [address] 01/30/2025 4:15 PM EDT Office Visit [place]ematology [place] [address] Arturo Cordero MD [facility] DR HEMATOLOGY [place] [address] Scheduled Procedures Name Priority Associated Diagnoses Date/Ti me EGD, UPPER GI ENDOSCOPY (WRV U 2.09) Irritable bowel syndrome with constipation COLONOSCOPY, DIAGNOSTIC (WRV U 3.26) Irritable bowel syndrome with constipation documented as of this encounter Visit Diagnoses Diagnosis Type 2 diabetes mellitus without complication, with long-term current use of insulin documented in this encounter Care Teams County Historian Relationship Specialty Start Date End Date Rodney Padilla MD PCP - General 07/18/22 04/09/24 documented as of this encounter
--- OUTSIDE RECORDS SUMMARY | 2024-06-07 13:32 | XMS_ITS | Encounter Summary ---
Author Organization [facility] Address [facility] [place] [address] Care Team Providers Care Nicking Machine Operator Name Role Phone Rodney Padilla MD Primary Care Provider Reason for Visit * Reason Comments Medication Refill Encounter Details Date Type Department Care Team (Late st Contact Info) Description 02/26/2023 Refill Family Medicine at [facility] [address] [place] [address] Luis E Narayan MD [facility] DR LILI [place] [address] Mixed hyperlipidemia Social History Tobacco Use Types [...] PM EDT Prescription Renewal Request Name: Alize Chelsea [...] EST Office Visit Internal Medicine at [address] [address] Daryn Garrett MD [facility] DR LILI [place] [address] 10/02/2024 1:00 PM EDT Office [place] [phone] Juanpablo Hernandez MD [facility] [place] [address] 01/30/2025 1:30 PM EDT Laboratory Appointment Lab at [facility] Hematology Oncology [address] [place] [phone] 01/30/2025 3:[address] [place] [place] [address] Arturo Cordero MD [facility] DR [place] [address] 01/30/2025 4:15 PM EDT Office Visit [place]ology [place] [address] Arturo Cordero MD [facility] DR [place] [address] Scheduled Procedures Name Priority Associated Diagnoses Date/Ti me EGD, UPPER GI ENDOSCOPY (WRV U 2.09) Irritable bowel syndrome with constipation COLONOSCOPY, DIAGNOSTIC (WRV U 3.26) Irritable bowel syndrome with constipation documented as of this encounter Visit Diagnoses Diagnosis Mixed hyperlipidemia documented in this encounter Care Teams Nicking Machine Operator Relationship Specialty Start Date End Date Rodney Padilla MD PCP - General 07/18/22 04/09/24 documented as of this encounter
--- OUTSIDE RECORDS SUMMARY | 2024-06-07 13:32 | XMS_ITS | Encounter Summary ---
Author Organization [facility] Address [facility] [place] [address] Care Team Providers Care Systems Analyst Name Role Phone Rodney Padilla MD Primary Care Provider Reason for Visit * Reason Comments Medication Management Encounter Details Date Type Department Care Team (Late st Contact Info) Description 12/01/2022 12:45 PM EDT TH Visit (TeleHealth) Family Medicine at [facility] [address] [place] [phone] Julia Low, [facility] Medication management Social History Tobacco [...] Progress Notes * Julia Low RP - 12/01/2022 12:45 PM EDT Clinical Pharmacist [...] any of the following conditions: Yes [x] KS/Stroke/CAD [] Retinopathy [] CHF [x] Neuropathy [] [...] 182 137 160 Daily Avg 153 eA1c [id number] Prior Averages: 08/26/21 09/09/21 09/24/21 11/14/21 Daily Avg 157 168 131 138 175 eA1c [id number] 8.46 7.20 7.44 8.7 Acute complications of [...] Outpatient Medications Medication Sig Dispense Refill ??? Lanjose luis Solostar U-100 Insulin 100 unit/mL [...] 5 ??? fluticasone propionate (Flonase) 50 mcg/actuation [place], Suspension 1 spray by Each Nare route [...] ??? Nebulizer Accessories Misc 1 each by [facility]Non-Drug; Combo Route) route every 4 hours as [...] 1 each 11 ??? FreeStyle Sanjana 2 [place] Misc 1 each by Other route daily. [...] EST Office Visit Internal Medicine at [address] [address] [facility] [address] LILI [place] [address] 10/02/2024 1:00 PM EDT Office [place] [phone] [facility] [place] [address] 01/30/2025 1:30 PM EDT Laboratory Appointment Lab at [facility] [place] [address] [place] [phone] 01/30/2025 3:[address] [place] [address] [facility] DR [place] [address] 01/30/2025 4:15 PM EDT Office Visit Hematology [place] [address] [facility] [place] [address] Scheduled Procedures Name Priority Associated Diagnoses Date/Ti me EGD, UPPER GI ENDOSCOPY (WRV U 2.09) Irritable bowel syndrome with constipation COLONOSCOPY, DIAGNOSTIC (WRV U 3.26) Irritable bowel syndrome with constipation documented as of this encounter Visit Diagnoses Diagnosis Medication management Encounter for long-term (current) use of other medications documented in this encounter Care Teams Systems Analyst Relationship Specialty Start Date End Date Rodney Padilla MD PCP - General 07/18/22 04/09/24 documented as of this encounter
--- OUTSIDE RECORDS SUMMARY | 2024-06-07 13:32 | XMS_ITS | Encounter Summary ---
Author Organization [facility] [place] [address] Care Team Providers Care Collection Administrator Name Role Phone Rodney Padilla MD Primary Care Provider Reason for Visit * Reason Comments Eye Problem Encounter Details Date Type Department Care Team (Late st Contact Info) Description 02/22/2023 12:45 PM EDT Office [place] [address] Juanpablo Hernandez MD [facility] [place] [address] Malignant melanoma of conjunctiva, left Social History [...] Medicine at [facility] [address] [place] [phone] Daryn Garrett MD [facility] [address] [place] [address] 10/02/2024 1:00 PM EDT Office Visit Ophthalmology at [place] [phone] Juanpablo Hernandez MD [facility] [place] [address] 01/30/2025 1:30 PM EDT Laboratory Appointment Lab at [facility] Hematology Oncology [address] [place], [place] [phone] 01/30/2025 3:[address] [place] [phone] Arturo Cordero MD [facility] [place] [address] 01/30/2025 4:15 PM EDT Office Visit Hematology [place] [address] Arturo Cordero MD [facility] [place] [address] Scheduled Procedures Name Priority Associated Diagnoses Date/Ti [...] cryo 05/14/2020 Juanpablo Hernandez MD OPHTHALMOLOGY SERVIC ORDERABLES documented in this encounter Visit Diagnoses Diagnosis Malignant melanoma of conjunctiva, left documented in this encounter Care Teams Collection Administrator Relationship Specialty Start Date End Date Rodney Padilla MD PCP - General 07/18/22 04/09/24 documented as of this encounter
--- OUTSIDE RECORDS SUMMARY | 2024-06-07 13:32 | XMS_ITS | Encounter Summary ---
Author Organization [facility] Address [facility] [place] [address] Care Team Providers Care Motor Expert Name Role Phone Rodney Padilla MD Primary Care Provider [phone] Reason for Visit * Reason Comments Medication Refill Encounter Details Date Type Department Care Team (Late st Contact Info) Description 02/19/2023 Refill Family Medicine at [facility] [address] [place] [address] Luis E Narayan MD [facility] DR LILI WALKER-[place] [address] Social History Tobacco Use Types Packs/Day Years [...] AM EST Office Visit Internal Medicine at [place] [address] [place] [address] Daryn Garrett MD [facility] DR LILI WALKER - [place] [address] 10/02/2024 1:00 PM EDT Office [place] [phone] Juanpablo Hernandez MD [facility] [place] [address] 01/30/2025 1:30 PM EDT Laboratory Appointment Lab at [facility] Hematology Oncology [address] [place] [phone] 01/30/2025 3:[address] [place] [phone] Arturo Cordero MD [facility] DR HEMATOLOGY [place] [address] 01/30/2025 4:15 PM EDT Office Visit Hematology [place] [phone] Arturo Cordero MD [facility] DR HEMATOLOGY [place] [address] Scheduled Procedures Name Priority Associated Diagnoses Date/Ti me EGD, UPPER GI ENDOSCOPY (WRV U 2.09) Irritable bowel syndrome with constipation COLONOSCOPY, DIAGNOSTIC (WRV U 3.26) Irritable bowel syndrome with constipation documented as of this encounter Visit Diagnoses Not on filedocumented in this encounter Care Teams Motor Expert Relationship Specialty Start Date End Date Rodney Padilla MD PCP - General 07/18/22 04/09/24 documented as of this encounter
--- OUTSIDE RECORDS SUMMARY | 2024-06-07 13:32 | XMS_ITS | Encounter Summary ---
Author Organization [facility] Address [facility] [place] [address] Care Team Providers Care Commercial Truck Driver Name Role Phone Rodney Padilla [...] AM EST Office Visit Internal Medicine at [facility] [address] [place] [address] Daryn Garrett MD [facility] [address] LILI WALKER [place] [address] 10/02/2024 1:00 PM EDT Office [place] [phone] Juanpablo Hernandez MD [facility] [place] [address] 01/30/2025 1:30 PM EDT Laboratory Appointment Lab at [facility] [place] Oncology [address] [place] [phone] 01/30/2025 3:[address] [place] [address] Arturo Cordero MD [facility] HEMATOLOGY [place] [address] 01/30/2025 4:15 PM EDT Office Visit Hematology [place] [address] Arturo Cordero MD [facility] DR HEMATOLOGY [place] [address] Scheduled Procedures Name Priority Associated Diagnoses Date/Ti me EGD, UPPER GI ENDOSCOPY (WRV U 2.09) Irritable bowel syndrome with constipation COLONOSCOPY, DIAGNOSTIC (WRV U 3.26) Irritable bowel syndrome with constipation documented as of this encounter Visit Diagnoses Not on filedocumented in this encounter Care Teams Commercial Truck Driver Relationship Specialty Start Date End Date Rodney Padilla MD PCP - General 07/18/22 04/09/24 documented as of this encounter
--- OUTSIDE RECORDS SUMMARY | 2024-06-07 13:32 | XMS_ITS | Encounter Summary ---
Author Organization [facility] [place] [address] Care Team Providers Care Railroader Name Role Phone Rodney Padilla MD Primary Care Provider Reason for Visit * Reason Onset Date Comments Leg Swelling 04/14/2023 Encounter Details Date Type Department Care Team (Late st Contact Info) Description 04/14/2023 Nurse Triage Family Medicine at [facility] [address] [place] [address] Rani Menard, RN Leg Swelling Social History [...] - 04/14/2023 3:56 PM EDT Copied from [facility] #[id number]. Topic: Triage - Triage >> Apr 14, [...] AM EST Office Visit Internal Medicine at [address] [place] [phone] Daryn Garrett MD [facility] [address] LILI [place] [address] 10/02/2024 1:00 PM EDT Office [place] [phone] Juanpablo Hernandez MD [facility] [address] 01/30/2025 1:30 PM EDT Laboratory Appointment Lab at [facility] Hematology Oncology [address] [place] [phone] 01/30/2025 3:[address] [place] [phone] Arturo Cordero MD [facility] [place] [address] 01/30/2025 4:15 PM EDT Office Visit Hematology [place] [address] Arturo Cordero MD [facility] [address] [place] [address] Scheduled Procedures Name Priority Associated Diagnoses Date/Ti me EGD, UPPER GI ENDOSCOPY (WRV U 2.09) Irritable bowel syndrome with constipation COLONOSCOPY, DIAGNOSTIC (WRV U 3.26) Irritable bowel syndrome with constipation documented as of this encounter Visit Diagnoses Not on filedocumented in this encounter Care Teams Railroader Relationship Specialty Start Date End Date Rodney Padilla MD PCP - General 07/18/22 04/09/24 documented as of this encounter
--- OUTSIDE RECORDS SUMMARY | 2024-06-07 13:32 | XMS_ITS | Encounter Summary ---
[facility] [place] [address] Care Team Providers Care Metal Worker Name Role Phone Rodney Padilla MD Primary Care Provider Encounter Details Date Type Department Care Team (Late st Contact Info) Description 01/09/2023 Orders Only Hematology [place] [address] Arturo Cordero MD [facility] [address] [place] [address] Malignant melanoma of conjunctiva, left; Lung nodule [...] AM EST Office Visit Internal Medicine at [place] [address] [place] [phone] Daryn Garrett MD [facility] [address] LILI [place] [address] 10/02/2024 1:00 PM EDT Office [place] [phone] Juanpablo Hernandez MD [facility] [place] [place] [address] 01/30/2025 1:30 PM EDT Laboratory Appointment Lab at [facility] Hematology Oncology [address] [place] [phone] 01/30/2025 3:[address] [place] [address] Arturo Cordero MD [facility] [address] H[place] [address] 01/30/2025 4:15 PM EDT Office Visit Hematology [place] [address] Arturo Cordero MD [facility] [address] [place] [address] Scheduled Procedures Name Priority Associated Diagnoses Date/Ti me EGD, UPPER GI ENDOSCOPY (WRV U 2.09) Irritable bowel syndrome with constipation COLONOSCOPY, DIAGNOSTIC (WRV U 3.26) Irritable bowel syndrome with constipation documented as of this encounter Results * Lactate Dehydrogenase (08/03/2023 7:53 AM EST) Pathologist [facility] Lactate Dehydrogenase 218 110 - 220 unit/L [facility] Blood 08/03/2023 7:53 AM EST 08/03/2023 9:46 AM EST Narrative Resulting Agency Comment Spec In Lab Arturo Cordero MD CHEMISTRY ORDERABLES [facility] [place] [address] * (ABNORMAL) Comprehensive metabolic panel (non-fasting) (08/03/2023 7:53 AM EST) Pathologist [facility] Glucose 254(H) 65 - 199 mg/dL [facility] Comment:Diabetes: >=200 mg/d L plus symptoms Blood Urea Nitrogen 17 8 - 18 mg/dL [facility] Creatinine 0.82 0.70 - 1.20 mg/dL [facility] Sodium 140 135 - 145 mmol/L [facility] Potassium 4.9 3.5 - 5.0 mmol/L [facility] Comment: Please note: ??Patients with WBC >100,000 may have falsely elevated Potassium levels. ??For accurate Potassium quantification in these patients send serum separator tube (gold top) for subsequent determinations. ??Contact the Clinical Chemistry Laboratory if there are any questions. Chloride 103 98 - 107 mmol/L [facility] Carbon Dioxide 27 22 - 31 mmol/L [facility] Anion Gap 10 5 - 15 mmol/L [facility] Calcium 9.5 8.5 - 10.5 mg/dL [facility] Protein, Total 6.9 6.1 - 8.0 g/dL [facility] Albumin 4.3 3.2 - 5.2 g/dL [facility] Aspartate Aminotransferase 19 0 - 30 unit/L [facility] Alanine Aminotransferase 26 0 - 30 unit/L [facility] Alkaline Phosphatase 101 35 - 105 unit/L [facility] Bilirubin, Total 0.3 0.2 - 1.3 mg/dL [facility] Est Glomerular Filtration Rate 80 >=60 mL/min/1. 73 m?? [facility] Comment: This patient's estimated GFR was [...] Lab Arturo Cordero MD CHEMISTRY ORDERABLES [facility] [address] documented in this encounter Visit Diagnoses Diagnosis Malignant melanoma of conjunctiva, left Lung nodule Solitary pulmonary nodule documented in this encounter Care Teams Metal Worker Relationship Specialty Start Date End Date Rodney Padilla MD PCP - General 07/18/22 04/09/24 documented as of this encounter
--- OUTSIDE RECORDS SUMMARY | 2024-06-07 13:32 | XMS_ITS | Encounter Summary ---
Author Organization [facility] Address [facility] [place] [address] Care Team Providers Care Middleware Systems Architect Name Role Phone Rodney Padilla MD Primary Care Provider [phone] Reason for Visit * Reason Onset Date Comments Medication Refill 04/02/2023 Encounter Details Date Type Department Care Team (Late st Contact Info) Description 04/02/2023 Refill Family Medicine at [facility] [address] [place] [address] Tamera Khan APRN [facility] DR LILI [place] [address] Social History Tobacco Use Types Packs/Day Years [...] EST Office Visit Internal Medicine at [facility] [address] [place] [address] Daryn Garrett MD [facility] DR LILI [place] [address] 10/02/2024 1:00 PM EDT Office [place] [phone] Juanpablo Hernandez MD [facility] [address] 01/30/2025 1:30 PM EDT Laboratory Appointment Lab at [facility] Hematology Oncology [address] [place] [phone] 01/30/2025 3:[address] [place] [phone] Arturo Cordero MD [facility] DR [place] [address] 01/30/2025 4:15 PM EDT Office Visit [place]ematology [place] [address] Arturo Cordero MD [facility] DR [place] [address] Scheduled Procedures Name Priority Associated Diagnoses Date/Ti me EGD, UPPER GI ENDOSCOPY (WRV U 2.09) Irritable bowel syndrome with constipation COLONOSCOPY, DIAGNOSTIC (WRV U 3.26) Irritable bowel syndrome with constipation documented as of this encounter Visit Diagnoses Not on filedocumented in this encounter Care Teams Middleware Systems Architect Relationship Specialty Start Date End Date Rodney Padilla MD PCP - General 07/18/22 04/09/24 documented as of this encounter
--- OUTSIDE RECORDS SUMMARY | 2024-06-07 13:32 | XMS_ITS | Encounter Summary ---
Author Organization [facility] [place] [address] Care Team Providers Care Hydro Plant Technician Name Role Phone Rodney Padilla MD Primary Care Provider Reason for Visit * Reason Comments Procedure Knee injection for R t knee Encounter Details Date Type Department Care Team (Late st Contact Info) Description 02/23/2023 3:00 PM EDT Procedure visit Family Medicine at [facility] [address] [place] [phone] Shyla Barbosa MD Chronic pain of right knee; Type 2 [...] bone on bone, rubbing quality Baseline pain 7-10/10. Occ tylenol (Has hx of fatty liver [...] EST Office Visit Internal Medicine at [address] [phone] Daryn Garrett MD [facility] DR LILI WALKER [place] [address] 10/02/2024 1:00 PM EDT Office [place] [phone] Juanpablo Hernandez MD [facility] [place] [address] 01/30/2025 1:30 PM EDT Laboratory Appointment Lab at [facility] Hematology Oncology [address] [place] [phone] 01/30/2025 3:[address] [place] [phone] Arturo Cordero MD [facility] HEMATOLOGY [place] [address] 01/30/2025 4:15 PM EDT Office Visit Hematology [place] [phone] Arturo Cordero MD [facility] DR HEMATOLOGY [place] [address] Scheduled Procedures Name Priority Associated Diagnoses Date/Ti [...] insulin documented in this encounter Care Teams Hydro Plant Technician Relationship Specialty Start Date End Date Rodney Padilla MD PCP - General 07/18/22 04/09/24 documented as of this encounter
--- OUTSIDE RECORDS SUMMARY | 2024-06-07 13:32 | XMS_ITS | Encounter Summary ---
Author Organization [facility] Address [facility] [place] [address] Care Team Providers Care Resident Care Provider Name Role Phone Rodney Padilla MD Primary Care Provider Reason for Visit * Reason Comments Medication Refill Encounter Details Date Type Department Care Team (Late st Contact Info) Description 02/26/2023 Refill Family Medicine at [facility] [address] [place] [address] Tamera Khan, KATHIA [facility] [place] [address] Type 2 diabetes mellitus with hyperglycemia, without [...] EST Office Visit Internal Medicine at [facility] [address] [place] [address] Daryn Garrett MD [facility] DR LILI WALKER [place] [address] 10/02/2024 1:00 PM EDT Office [place] [phone] Juanpablo Hernandez MD [facility] [place] [address] 01/30/2025 1:30 PM EDT Laboratory Appointment Lab at [facility] Hematology Oncology [address] [place] [phone] 01/30/2025 3:[address] [place] [phone] Arturo Cordero MD [facility] DR HEMATOLOGY [place] [address] 01/30/2025 4:15 PM EDT Office Visit Hematology [place] [address] Arturo Cordero MD [facility] DR HEMATOLOGY [place] [address] Scheduled Procedures Name Priority Associated Diagnoses Date/Ti me EGD, UPPER GI ENDOSCOPY (WRV U 2.09) Irritable bowel syndrome with constipation COLONOSCOPY, DIAGNOSTIC (WRV U 3.26) Irritable bowel syndrome with constipation documented as of this encounter Visit Diagnoses Diagnosis Type 2 diabetes mellitus with hyperglycemia, without long-term current use of insulin documented in this encounter Care Teams Resident Care Provider Relationship Specialty Start Date End Date Rodney Padilla MD PCP - General 07/18/22 04/09/24 documented as of this encounter
--- OUTSIDE RECORDS SUMMARY | 2024-06-07 13:33 | XMS_ITS | Encounter Summary ---
Author Organization [facility] Address [facility] [place] [address] Care Team Providers Care Wrist Liner Name Role Phone Rodney Padilla MD Primary Care Provider Reason for Visit * Reason Comments Diabetes Encounter Details Date Type Department Care Team (Late st Contact Info) Description 11/03/2022 12:45 PM EDT TH Visit (TeleHealth) Family Medicine at [facility] [address] [place] [phone] Julia Low, [facility] Type 2 [...] this encounter Progress Notes * Julia Low [facility] - 11/03/2022 12:45 PM EDT [...] 206 245 138 Daily Avg 175 eA1c [id number] Prior Averages: 08/26/21 09/09/21 09/24/21 11/14/21 Daily Avg 157 168 131 138 eA1c [id number] 8.46 7.20 7.44 Acute complications of diabetes: [...] 5 ??? fluticasone propionate (Flonase) 50 mcg/actuation [place], Suspension 1 spray by Each Nare route [...] 1 each 11 ??? FreeStyle Sanjana 2 [place] Misc 1 each by Other route daily. [...] Cholesterol: Lipid Panel The ASCVD Risk score (San Simeon DK, et al., 2019) failed to calculate [...] EST Office Visit Internal Medicine at [address] [place] [phone] Daryn Garrett MD [facility] DR [place] [address] 10/02/2024 1:00 PM EDT Office [place] [phone] Juanpablo Hernandez MD [facility] [place] [address] 01/30/2025 1:30 PM EDT Laboratory Appointment Lab at [facility] Hematology Oncology [address] [place] [phone] 01/30/2025 3:[address] [place] [phone] Arturo Cordero MD [facility] [place] [address] 01/30/2025 4:15 PM EDT Office Visit Hematology [place] [phone] Arturo Cordero MD [facility] [place] [address] Scheduled Procedures Name Priority Associated Diagnoses Date/Ti me EGD, UPPER GI ENDOSCOPY (WRV U 2.09) Irritable bowel syndrome with constipation COLONOSCOPY, DIAGNOSTIC (WRV U 3.26) Irritable bowel syndrome with constipation documented as of this encounter Visit Diagnoses Diagnosis Type 2 diabetes mellitus without long-term current use of insulin documented in this encounter Care Teams Wrist Liner Relationship Specialty Start Date End Date Rodney Padilla MD PCP - General 07/18/22 04/09/24 documented as of this encounter
--- OUTSIDE RECORDS SUMMARY | 2024-06-07 13:33 | XMS_ITS | Encounter Summary ---
[place] [address] Care Team Providers Care Chemistry Professor Name Role Phone Rodney Padilla MD Primary Care Provider [phone] Reason for Visit * Diagnostic Test (Routine) - Closed Specialty Diagnoses / Procedures Referred By Gonzalez kumari Referred To Contact Radiology Diagnoses Dyspepsia Nausea without vomiting Procedures NM Gastric Emptying Scan Alejandra Pop, [employer] [address] [place] [address] [place] [address] Referral ID Status Reason Start Date Expiration Date V isits Requested Visits Authorized [id number] Closed Specialty Service Requested 06/17/2022 12/17/2023 1 1 Encounter Details Date Type Department Care Team (Latest Contact Info) Description 10/18/2022 10:22 AM EDT - 10/18/2022 11:59 PM EDT Hospital Encounter [place] [address] Alejandra Pop [employer] [address] [place] [place] [address] Discharge Disposition: Home Social History [...] Dispensed Refills Start Date End Date Roberto Lancets 28 gauge MiscIndications:diabe escobar mellitus 1 [...] insulin needles, disposable, 32 gauge x 5/32 NeedleIndications:rtue betes mellitus Inject 1 each subcutaneously daily. Indications: diabetes 100 each 11 10/05/2022 11/02/2023 nitroGLYcerin (Nitrostat) 0.[address] 1 tablet under the tongue See Admin Instructions. 30 tablet 5 09/26/2022 09/19/2023 fluticasone propionate (Flonase) 50 mcg/actuation [place], Suspension 1 spray by Each Nare route [...] 1 each 12/10/2021 02/04/2023 FreeStyle Sanjana 2 [place] MiscIndications:diabe escobar mellitus 1 each by Other [...] AM EST Office Visit Internal Medicine at [facility] [address] [place] [address] Daryn Garrett MD [facility] DR LILI AZEVEDO - [place] [address] 10/02/2024 1:00 PM EDT Office Visit Ophthalmology at [place] [phone] Juanpablo Hernandez MD [facility] DR [place]TH[place] [address] 01/30/2025 1:30 PM EDT Laboratory Appointment Lab at [facility] Hematology Oncology [address] [place], [place] [phone] 01/30/2025 3:[address] Scan at [place] [phone] Arturo Cordero MD [facility] DR HEMATOLOGY [place] [address] 01/30/2025 4:15 PM EDT Office Visit Hematology and Oncology at [place] [phone] Arturo Cordero MD [facility] DR HEMATOLOGY [place] [address] Scheduled Procedures Name Priority Associated Diagnoses Date/Ti [...] questions please contact the health health care manager that requested your imaging first. [...] have questions please contactthe health health care manager that requested your imaging first. Alejandra Pop MANAGER [employer] IMG [place] ORDERABLE S documented in this encounter Visit Diagnoses Not on filedocumented in this encounter Care Teams Chemistry Professor Relationship Specialty Start Date End Date Rodney Padilla MD PCP - General 07/18/22 04/09/24 documented as of this encounter
--- OUTSIDE RECORDS SUMMARY | 2024-06-07 13:33 | XMS_ITS | Encounter Summary ---
Author Organization [facility] [place] [address] Care Team Providers Care Pecan Cleaner Name Role Phone Rodney Padilla MD Primary Care Provider [phone] Encounter Details Date Type Department Care Team (Late st Contact Info) Description 08/25/2022 Telephone Family Medicine at [address] [place] [phone] Julia Gooden Social History Tobacco Use Types [...] - 08/25/2022 12:55 PM EST Copied from [facility] #[id number]. Topic: Forms/Letters - Health/Immunization Forms >> Aug 25, 2022 11:53 AM Paula Tyson wrote: Health / Immunization Form Request PCP: RODNEY PADILLA Type of Form Needed: Current medication list Date of Last Physical: 07/07/22 How Would You Like to Receive This: [facility] called and stated patient isthere now and they need an updated medication list Patient Informed, completion of this request can take 5-7 business days. documented in this encounter Plan of Treatment Upcoming Encounters Date Type Department Care Team (Late st Contact Info) Description 06/28/2024 9:30 AM EST Office Visit Internal Medicine at [facility] [address] [place] [address] Daryn Garrett MD [facility] DR LILI [place]ED[place] [address] 10/02/2024 1:00 PM EDT Office Visit Ophthalmology at [place] [phone] Juanpablo Hernandez MD [facility] [place] [place] [address] 01/30/2025 1:30 PM EDT Laboratory Appointment Lab at [facility] Hematology Oncology [address] [place] [address] 01/30/2025 3:[address] Scan at [address] Arturo Cordero MD [facility] DR [place] [address] 01/30/2025 4:15 PM EDT Office Visit Hematology and Oncology at [place] [phone] Arturo Cordero MD [facility] DR [place] [address] Scheduled Procedures Name Priority Associated Diagnoses Date/Ti me EGD, UPPER GI ENDOSCOPY (WRV U 2.09) Irritable bowel syndrome with constipation COLONOSCOPY, DIAGNOSTIC (WRV U 3.26) Irritable bowel syndrome with constipation documented as of this encounter Visit Diagnoses Not on filedocumented in this encounter Care Teams Pecan Cleaner Relationship Specialty Start Date End Date Rodney Padilla MD PCP - General 07/18/22 04/09/24 documented as of this encounter
--- OUTSIDE RECORDS SUMMARY | 2024-06-07 13:33 | XMS_ITS | Encounter Summary ---
Author Organization [facility] [place] [address] Care Team Providers Care Inspector Scales Name Role Phone Rodney Padilla MD Primary Care Provider Reason for Visit * Reason Comments Eye Problem Diabetic Eye Exam Encounter Details Date Type Department Care Team (Late st Contact Info) Description 10/05/2022 12:45 PM EDT Office [place] [address] Juanpablo Hernandez MD [facility] [place] [address] Malignant melanoma of conjunctiva, left; Type 2 [...] AM EST Office Visit Internal Medicine at [place] [address] [place] [address] Daryn Garrett MD [facility] DR LILI [place] [address] 10/02/2024 1:00 PM EDT Office [place] [address] Juanpablo Hernandez MD [facility] [place] [address] 01/30/2025 1:30 PM EDT Laboratory Appointment Lab at [facility] Hematology Oncology [address] [place] [phone] 01/30/2025 3:[address] [place] [phone] Arturo Cordero MD [facility] DR [place] [address] 01/30/2025 4:15 PM EDT Office Visit Hematology [place] [phone] Arturo Cordero MD [facility] DR [place] [address] Scheduled Procedures Name Priority Associated Diagnoses Date/Ti [...] documented in this encounter Care Teams Inspector Scales Relationship Specialty Start Date End Date Rodney Padilla MD PCP - General 07/18/22 04/09/24 documented as of this encounter
--- OUTSIDE RECORDS SUMMARY | 2024-06-07 13:33 | XMS_ITS | Encounter Summary ---
Author Organization [facility] Address [facility] [place] [address] Care Team Providers Care [employer] Combat Skills Name Role Phone Rodney Padilla MD Primary Care Provider Reason for Visit * Reason Comments Medication Refill Encounter Details Date Type Department Care Team (Late st Contact Info) Description 09/15/2022 Refill Family Medicine at [facility] [address] [place] [address] Tamera Khan APRN [facility] DR LILI WALKER-[place] [address] Social History Tobacco Use Types Packs/Day Years [...] Office Visit Internal Medicine at [facility] [address] [place] [phone] Daryn Garrett MD [facility] DR LILI WALKER - [place] [address] 10/02/2024 1:00 PM EDT Office [place] [phone] Juanpablo Hernandez MD [facility] DR [place] [address] 01/30/2025 1:30 PM EDT Laboratory Appointment Lab at [facility] Hematology Oncology [address] [place] [phone] 01/30/2025 3:[address] [place] [phone] Arturo Cordero MD [facility] DR HEMATOLOGY [place] [address] 01/30/2025 4:15 PM EDT Office Visit Hematology [place] [phone] Arturo Cordero MD [facility] HEMATOLOGY [place] [address] Scheduled Procedures Name Priority Associated Diagnoses Date/Ti me EGD, UPPER GI ENDOSCOPY (WRV U 2.09) Irritable bowel syndrome with constipation COLONOSCOPY, DIAGNOSTIC (WRV U 3.26) Irritable bowel syndrome with constipation documented as of this encounter Visit Diagnoses Not on filedocumented in this encounter Care Teams [employer] Combat Skills Relationship Specialty Start Date End Date Rodney Padilla MD PCP - General 07/18/22 04/09/24 documented as of this encounter
--- OUTSIDE RECORDS SUMMARY | 2024-06-07 13:33 | XMS_ITS | Encounter Summary ---
Author Organization [facility] [place] [address] Care Team Providers Care Polishing Wheel Setter Name Role Phone Rodney Padilla MD Primary Care Provider Reason for Visit * Reason Onset Date Comments Medication Problem 11/08/2022 Tresiba Encounter Details Date Type Department Care Team (Late Contact Info) Description 11/08/2022 Telephone Family Medicine at [facility] [address] [place] [address] Rodney Padilla MD [address] [place] [address] [place] [address] Medication Problem (Tresiba /) Social History Tobacco [...] AM EST Office Visit Internal Medicine at [address] [phone] Daryn Garrett MD [facility] DR LILI WALKER [place] [address] 10/02/2024 1:00 PM EDT Office [place] [phone] Juanpablo Hernandez MD [facility] [place] [address] 01/30/2025 1:30 PM EDT Laboratory Appointment Lab at [facility] Hematology Oncology [address] [place] [phone] 01/30/2025 3:[address] [place] [place] [phone] Arturo Cordero MD [facility] HEMATOLOGY [place] [address] 01/30/2025 4:15 PM EDT Office Visit Hematology [place] [phone] Arturo Cordero MD [facility] HEMATOLOGY AND ONCOLOGY [place], [place] [phone] Scheduled Procedures Name Priority Associated Diagnoses Date/Ti me EGD, UPPER GI ENDOSCOPY (WRV U 2.09) Irritable bowel syndrome with constipation COLONOSCOPY, DIAGNOSTIC (WRV U 3.26) Irritable bowel syndrome with constipation documented as of this encounter Visit Diagnoses Not on filedocumented in this encounter Care Teams Polishing Wheel Setter Relationship Specialty Start Date End Date Rodney Padilla MD PCP - General 07/18/22 04/09/24 documented as of this encounter
--- OUTSIDE RECORDS SUMMARY | 2024-06-07 13:33 | XMS_ITS | Encounter Summary ---
[place] [address] Care Team Providers Care Retail Department Reset Name Role Phone Rodney Padilla MD Primary Care Provider Reason for Visit * Diagnostic Test (Routine) - Closed Specialty Diagnoses / Procedures Referred By Gonzalez kumari Referred To Contact Radiology Diagnoses Dyspepsia Nausea without vomiting Procedures NM Gastric Emptying Scan Alejandra Pop, PROFESSOR OF APOLOGETICS [address] [place] [address] [place] [address] Referral ID Status Reason Start Date Expiration Date V isits Requested Visits Authorized [id number] Closed Specialty Service Requested 06/17/2022 12/17/2023 1 1 Encounter Details Date Type Department Care Team (Latest Contact Info) Description 10/18/2022 10:21 AM EDT Hospital Encounter Nuclear [place] [address] Alejandra Pop APRN [address] [place] [address] Discharge Disposition: Home Social History [...] 11/09/2022 insulin needles, disposable, 32 gauge x NeedleIndications:true betes mellitus Inject 1 each subcutaneously daily. Indications: diabetes 100 each 11 10/05/2022 11/02/2023 nitroGLYcerin (Nitrostat) 0.[address] 1 tablet under the tongue See Admin Instructions. 30 tablet 5 09/26/2022 09/19/2023 fluticasone propionate (Flonase) 50 mcg/actuation [place], Suspension 1 spray by Each Nare route [...] 1 each 12/10/2021 02/04/2023 FreeStyle Sanjana 2 [place] MiscIndications:diabe escobar mellitus 1 each by Other [...] AM EST Office Visit Internal Medicine at [facility] [address] [place] [phone] Daryn Garrett MD [facility] DR LILI [place] [address] 10/02/2024 1:00 PM EDT Office [place] [phone] Juanpablo Hernandez MD [facility] [place] [address] 01/30/2025 1:30 PM EDT Laboratory Appointment Lab at [facility] Hematology Oncology [address] [place] [phone] 01/30/2025 3:[address] [place] [phone] Arturo Cordero MD [facility] DR [place] [address] 01/30/2025 4:15 PM EDT Office Visit [place]ology [place] [address] Arturo Cordero MD [facility] DR [place] [address] Scheduled Procedures Name Priority Associated Diagnoses Date/Ti [...] questions please contact the health acute care nursing assistant that requested your imaging first. ? Electronically signed by: Brett Chapman MD, [facility] ([phone]), at 10/18/2022 3:12 PM Narrative 10/18/2022 3:12 [...] have questions please contactthe health acute care nursing assistant that requested your imaging first. Electronically signed by: Brett Chapman MD, [facility]([phone]), at 10/18/2022 3:12 PM Alejandra Pop PROFESSOR OF APOLOGETICS IMG NM ORDERABLE S documented in this encounter Visit Diagnoses Not on filedocumented in this encounter Care Teams Retail Department Reset Relationship Specialty Start Date End Date Rodney Padilla MD PCP - General 07/18/22 04/09/24 documented as of this encounter
--- OUTSIDE RECORDS SUMMARY | 2024-06-07 13:33 | XMS_ITS | Encounter Summary ---
Author Organization [facility] Address [facility] [place] [address] Care Team Providers Care Buff Wheel Fabricator Name Role Phone Rodney Padilla MD Primary Care Provider [phone] Encounter Details Date Type Department Care Team (Late st Contact Info) Description 11/30/2022 4:20 PM EDT Office Visit Dermatology at [facility] [address] [place] [address] Alonso Young MD [facility] [place] [address] Seborrheic keratoses; Multiple nevi; Lentigines; Aranda angioma; [...] a full skin exam. []Note routed to front office secretary [x]Recall placed in scheduling system []Appointment scheduled at checkout Scribe attestation: SONY Lal has performed the documentation for this encounter in the presence of and acting as a scribe for Alonso Young MD. I performed the above scribed service and agree with the accuracy of the documentation in this encounter. Reviewed and signed by: Alonso Young MD Dermatology [facility] Patient seen and evaluated with staff sports specialist: Ren Mitchell MD Dermatology [facility] * Ren Mitchell MD - 11/30/2022 [...] at [facility] [address] [place] [phone] Daryn Garrett MD [facility] [address] [place] [address] 10/02/2024 1:00 PM EDT Office [place] [address] Juanpablo Hernandez MD [facility] [place] [place] [address] 01/30/2025 1:30 PM EDT Laboratory Appointment Lab at [facility] Hematology Oncology [address] [place] [address] 01/30/2025 3:[address] [place] [address] Arturo Cordero MD [facility] [address] [place] [address] 01/30/2025 4:15 PM EDT Office Visit Hematology and Oncology at [address] Arturo Cordero MD [facility] [address] [place] [address] Scheduled Procedures Name Priority Associated Diagnoses Date/Ti [...] inflamed documented in this encounter Care Teams Buff Wheel Fabricator Relationship Specialty Start Date End Date Rodney Padilla MD PCP - General 07/18/22 04/09/24 documented as of this encounter
--- OUTSIDE RECORDS SUMMARY | 2024-06-07 13:33 | XMS_ITS | Encounter Summary ---
Author Organization [facility] [place] [address] Care Team Providers Care Stage Producer Name Role Phone Rodney Padilla MD Primary Care Provider [phone] Encounter Details Date Type Department Care Team (Late st Contact Info) Description 09/30/2022 Telephone Family Medicine at [address] [place] [phone] Julia Low, [facility] Social History Tobacco Use Types Packs/Day [...] AM EST Office Visit Internal Medicine at [address] [phone] Daryn Garrett MD [facility] DR LILI WALKER - PRIMARY CARE [place], [place] [phone] 10/02/2024 1:00 PM EDT Office [place] [address] Juanpablo Hernandez MD [facility] [place] [address] 01/30/2025 1:30 PM EDT Laboratory Appointment Lab at [facility] Hematology Oncology [address] [place] [phone] 01/30/2025 3:[address] [place] [address] Arturo Cordero MD [facility] HEMATOLOGY AND ONCOLOGY [place], [place] [phone] 01/30/2025 4:15 PM EDT Office Visit Hematology [place] [address] Arturo Cordero MD [facility] [place] [address] Scheduled Procedures Name Priority Associated Diagnoses Date/Ti me EGD, UPPER GI ENDOSCOPY (WRV U 2.09) Irritable bowel syndrome with constipation COLONOSCOPY, DIAGNOSTIC (WRV U 3.26) Irritable bowel syndrome with constipation documented as of this encounter Visit Diagnoses Not on filedocumented in this encounter Care Teams Stage Producer Relationship Specialty Start Date End Date Rodney Padilla MD PCP - General 07/18/22 04/09/24 documented as of this encounter
--- OUTSIDE RECORDS SUMMARY | 2024-06-07 13:33 | XMS_ITS | Encounter Summary ---
Author Organization [facility] Address [facility] [place] [address] Care Team Providers Care Wire Drawing Setter Name Role Phone Rodney Padilla MD [...] Visit Internal Medicine at [facility] [address] [place] [address] Daryn Garrett MD [facility] DR LILI WALKER [place] [address] 10/02/2024 1:00 PM EDT Office [place] [phone] Juanpablo Hernandez MD [facility] [place] [address] 01/30/2025 1:30 PM EDT Laboratory Appointment Lab at [facility] Hematology Oncology [address] [place] [phone] 01/30/2025 3:[address] [place] [address] Arturo Cordero MD [facility] HEMATOLOGY [place] [address] 01/30/2025 4:15 PM EDT Office Visit Hematology [place] [address] Arturo Cordero MD [facility] DR HEMATOLOGY [place] [address] Scheduled Procedures Name Priority Associated Diagnoses Date/Ti me EGD, UPPER GI ENDOSCOPY (WRV U 2.09) Irritable bowel syndrome with constipation COLONOSCOPY, DIAGNOSTIC (WRV U 3.26) Irritable bowel syndrome with constipation documented as of this encounter Visit Diagnoses Not on filedocumented in this encounter Care Teams Wire Drawing Setter Relationship Specialty Start Date End Date Rodney Padilla MD PCP - General 07/18/22 04/09/24 documented as of this encounter
--- OUTSIDE RECORDS SUMMARY | 2024-06-07 13:33 | XMS_ITS | Encounter Summary ---
[place] [address] Care Team Providers Care Line Driver Name Role Phone Rodney Padilla MD Primary Care Provider [phone] Reason for Visit * Diagnostic Test (Routine) - Closed Specialty Diagnoses / Procedures Referred By Gonzalez kumari Referred To Contact Radiology Diagnoses Dyspepsia Nausea without vomiting Procedures NM Gastric Emptying Scan Alejandra Pop, REMEDIATION TECHNICIAN [address] [place] [address] [place] [address] Referral ID Status Reason Start Date Expiration Date V isits Requested Visits Authorized [id number] Closed Specialty Service Requested 06/17/2022 12/17/2023 1 1 Encounter Details Date Type Department Care Team (Latest Contact Info) Description 10/18/2022 10:22 AM EDT - 10/18/2022 11:59 PM EDT Hospital Encounter [place] [address] Alejandra Pop REMEDIATION TECHNICIAN [address] [place] [address] Discharge Disposition: Home Social History [...] 09/26/2022 09/19/2023 fluticasone propionate (Flonase) 50 mcg/actuation [place], Suspension 1 spray by Each Nare route [...] 1 each 12/10/2021 02/04/2023 FreeStyle Sanjana 2 [place] MiscIndications:diabe escobar mellitus 1 each by Other [...] AM EST Office Visit Internal Medicine at [facility] [address] [address] Daryn Garrett MD [facility] DR L[place]I [place] [address] 10/02/2024 1:00 PM EDT Office Visit Ophthalmology at [place] [phone] Juanpablo Hernandez MD [facility] [place] [address] 01/30/2025 1:30 PM EDT Laboratory Appointment Lab at [facility] Hematology Oncology [address] [place], [place] [phone] 01/30/2025 3:[address] Scan at [place] [phone] Arturo Cordero MD [facility] [place] [address] 01/30/2025 4:15 PM EDT Office Visit Hematology and Oncology at [place] [phone] Arturo Cordero MD [facility] [place] [address] Scheduled Procedures Name Priority Associated Diagnoses Date/Ti [...] who have questions please contact the health congregational care pastor that requested your imaging first. ? Electronically signed by: Brett Chapman MD, [facility] ([phone]), at 10/18/2022 3:12 PM Narrative 10/18/2022 3:12 [...] patients who have questions please contactthe health congregational care pastor that requested your imaging first. Electronically signed by: Brett Chapman MD, [facility]([phone]), at 10/18/2022 3:12 PM Alejandra Pop REMEDIATION TECHNICIAN IMG NM ORDERABLE S documented in this encounter Visit Diagnoses Not on filedocumented in this encounter Care Teams Line Driver Relationship Specialty Start Date End Date Rodney Padilla MD PCP - General 07/18/22 04/09/24 documented as of this encounter
--- OUTSIDE RECORDS SUMMARY | 2024-06-07 13:33 | XMS_ITS | Encounter Summary ---
Author Organization [facility] [place] [address] Care Team Providers Care Property Economist Name Role Phone Rodney Padilla MD Primary Care Provider Reason for Visit * Reason Comments Diabetes Encounter Details Date Type Department Care Team (Late st Contact Info) Description 10/05/2022 3:30 PM EDT Clinical Support Family Medicine at [facility] [address] [place] [address] Julia Low, [facility] encounter Progress Notes * Julia Low [facility] - 10/05/2022 3:30 PM EDT Clinical Pharmacist [...] Daily Avg 157 168 131 138 eA1c [id number] 8.46 7.20 7.44 Acute complications of diabetes: [...] 5 ??? fluticasone propionate (Flonase) 50 mcg/actuation [place], Suspension 1 spray by Each Nare route [...] ??? Nebulizer Accessories Misc 1 each by [facility].(Non-Drug; Combo Route) route every 4 hours as [...] 1 each 11 ??? FreeStyle Sanjana 2 [place] Misc 1 each by Other route daily. [...] AM EST Office Visit Internal Medicine at [address] [phone] Daryn Garrett MD [facility] DR LILI [place] [address] 10/02/2024 1:00 PM EDT Office Visit [place] [phone] Juanpablo Hernandez MD [facility] [place] [place] [address] 01/30/2025 1:30 PM EDT Laboratory Appointment Lab at [facility] [place]ematology Oncology [address] [place] [phone] 01/30/2025 3:[address] [place] [phone] Arturo Cordero MD [facility] DR [place] [address] 01/30/2025 4:15 PM EDT Office Visit Hematology [place] [address] Arturo Cordero MD [facility] DR [place] [address] Scheduled Procedures Name Priority Associated Diagnoses Date/Ti [...] Primary documented in this encounter Care Teams Property Economist Relationship Specialty Start Date End Date Rodney Padilla MD PCP - General 07/18/22 04/09/24 documented as of this encounter
--- OUTSIDE RECORDS SUMMARY | 2024-06-07 13:33 | XMS_ITS | Encounter Summary ---
Author Organization [facility] Address [facility] Centercatherine [place] [address] Care Team Providers Care Secretary Book Keeper Name Role Phone Rodney Padilla MD Primary [...] AM EST Office Visit Internal Medicine at [facility] [address] [place] [address] Daryn Garrett MD [facility] DR LILI W[place]ER [place] [address] 10/02/2024 1:00 PM EDT Office [place] [phone] Juanpablo Hernandez MD [facility] [place] [address] 01/30/2025 1:30 PM EDT Laboratory Appointment Lab at [facility] Hematology Oncology [address] [place] [phone] 01/30/2025 3:[address] [place] [address] Arturo Cordero MD [facility] [place]ATOLOG[place] [address] 01/30/2025 4:15 PM EDT Office Visit [place] [address] Arturo Cordero MD [facility] DR HEMATOLOGY [place] [address] Scheduled Procedures Name Priority Associated Diagnoses Date/Ti me EGD, UPPER GI ENDOSCOPY (WRV U 2.09) Irritable bowel syndrome with constipation COLONOSCOPY, DIAGNOSTIC (WRV U 3.26) Irritable bowel syndrome with constipation documented as of this encounter Visit Diagnoses Not on filedocumented in this encounter Care Teams Secretary Book Keeper Relationship Specialty Start Date End Date Rodney Padilla MD PCP - General 07/18/22 04/09/24 documented as of this encounter
--- OUTSIDE RECORDS SUMMARY | 2024-06-07 13:33 | XMS_ITS | Encounter Summary ---
Author Organization [facility] [place] [address] Care Team Providers Care Java Flex Developer Name Role Phone Rodney Padilla MD Primary Care Provider [phone] Encounter Details Date Type Department Care Team (Latest Contact Info) Description 11/30/2022 2:20 PM EDT - 11/30/2022 11:59 PM EDT Hospital Encounter Mammography[place] [address] Rodney Padilla MD [address] [place] [address] [place] [address] Screening mammogram for breast cancer Discharge Disposition: [...] 09/26/2022 09/19/2023 fluticasone propionate (Flonase) 50 mcg/actuation [place], Suspension 1 spray by Each Nare route [...] 1 each 12/10/2021 02/04/2023 FreeStyle Sanjana 2 [place] MiscIndications:diabe escobar mellitus 1 each by Other [...] AM EST Office Visit Internal Medicine at [address] [address] Daryn Garrett MD [facility] DR LILI [place] [address] 10/02/2024 1:00 PM EDT Office [place] [phone] Juanpablo Hernandez MD [facility] [place] [address] 01/30/2025 1:30 PM EDT Laboratory Appointment Lab at [facility] Hematology Oncology [address] [place] [phone] 01/30/2025 3:[address] [place] [address] Arturo Cordero MD [facility] DR HEMAT[place] [address] 01/30/2025 4:15 PM EDT Office Visit Hematology [place] [address] Arturo Cordero MD [facility] DR HEMAT[place]Y [place] [address] Scheduled Procedures Name Priority Associated Diagnoses Date/Ti [...] cancer documented in this encounter Care Teams Java Flex Developer Relationship Specialty Start Date End Date Rodney Padilla MD PCP - General 07/18/22 04/09/24 documented as of this encounter
--- OUTSIDE RECORDS SUMMARY | 2024-06-07 13:33 | XMS_ITS | Encounter Summary ---
Author Organization [facility] [place] [address] Care Team Providers Care Monument Letterer Name Role Phone Daryn Garrett MD Primary Care Provider [phone] Reason for Visit * Reason Onset Date Comments Medication Refill 11/07/2022 Encounter Details Date Type Department Care Team (Late st Contact Info) Description 11/07/2022 Refill Family Medicine at [facility] [address] [place] [address] Rodney Padilla MD [address] [place] [address] [facility] [place] [address] Type 2 diabetes mellitus without long-term current [...] [facility] [address] [place] [address] Daryn Garrett MD [facility] DR LILI WALKER [place] [address] 10/02/2024 1:00 PM EDT Office [place] [phone] Juanpablo Hernandez MD [facility] [place] [address] 01/30/2025 1:30 PM EDT Laboratory Appointment Lab at [facility] [place] On[place] [address] [place] [phone] 01/30/2025 3:[address] [place] [address] Arturo Cordero MD [facility] DR HEMATOLOGY [place] [address] 01/30/2025 4:15 PM EDT Office Visit Hematology [place] [phone] Arturo Cordero MD [facility] DR HEMATOLOGY [place] [address] Scheduled Procedures Name Priority Associated Diagnoses Date/Ti me EGD, UPPER GI ENDOSCOPY (WRV U 2.09) Irritable bowel syndrome with constipation COLONOSCOPY, DIAGNOSTIC (WRV U 3.26) Irritable bowel syndrome with constipation documented as of this encounter Visit Diagnoses Diagnosis Type 2 diabetes mellitus without long-term current use of insulin documented in this encounter Care Teams Monument Letterer Relationship Specialty Start Date End Date Daryn Garrett MD [facility] DR LILI [place] [address] PCP - General 04/10/24 documented as of this encounter
--- OUTSIDE RECORDS SUMMARY | 2024-06-07 13:33 | XMS_ITS | Encounter Summary ---
Author Organization [facility] [place] [address] Care Team Providers Care Pathology Assistant Name Role Phone Rodney Padilla MD Primary Care Provider Encounter Details Date Type Department Care Team (Late st Contact Info) Description 07/18/2022 Telephone Family Medicine at [facility] [address] [place] [phone] Rodney Padilla MD [address] [facility] [place] [address] Social History Tobacco Use Types Packs/Day [...] get [facility] [...] AM EST Office Visit Internal Medicine at [facility] [address] [place] [address] Dayrn Garrett MD [facility] [address] L[place]I [place] [address] 10/02/2024 1:00 PM EDT Office [place] [phone] Juanpablo Hernandez MD [facility] [place] [address] 01/30/2025 1:30 PM EDT Laboratory Appointment Lab at [facility] [place] On[place] [address] [place] [phone] 01/30/2025 3:[address] [place] [phone] Arturo Cordero MD [facility] [place] [address] 01/30/2025 4:15 PM EDT Office Visit Hematology [place] [address] Arturo Cordero MD [facility] [place] [address] Scheduled Procedures Name Priority Associated Diagnoses Date/Ti me EGD, UPPER GI ENDOSCOPY (WRV U 2.09) Irritable bowel syndrome with constipation COLONOSCOPY, DIAGNOSTIC (WRV U 3.26) Irritable bowel syndrome with constipation documented as of this encounter Visit Diagnoses Not on filedocumented in this encounter Care Teams Pathology Assistant Relationship Specialty Start Date End Date Rodney Padilla MD PCP - General 07/18/22 04/09/24 documented as of this encounter
--- OUTSIDE RECORDS SUMMARY | 2024-06-07 13:33 | XMS_ITS | Encounter Summary ---
Author Organization [facility] Address [facility] [place] [address] Care Team Providers Care Locksmith Helper Name Role Phone Rodney Padilla MD Primary Care Provider Reason for Visit * Reason Onset Date Comments Medication Refill 09/25/2022 Encounter Details Date Type Department Care Team (Late st Contact Info) Description 09/25/2022 Refill Family Medicine at [facility] [address] [place] [address] Luis E Narayan MD [facility] DR LILI WALKER[place] [address] Social History Tobacco Use Types Packs/Day Years [...] Notes * Telephone Encounter - [facility] 09/26/2022 11:40 AM EDT Prescription Renewal [...] AM EST Office Visit Internal Medicine at [facility] [address] [place] [phone] Daryn Garrett MD [facility] DR LILI WALKER [place] [address] 10/02/2024 1:00 PM EDT Office [place] [phone] Juanpablo Hernandez MD [facility] [place] [address] 01/30/2025 1:30 PM EDT Laboratory Appointment Lab [place] [facility] [place] [address] [place] [phone] 01/30/2025 3:[address] [place] [address] Arturo Cordero MD [facility] HEMATOLOGY [place] [address] 01/30/2025 4:15 PM EDT Office Visit Hematology [place] [address] Arturo Cordero MD [facility] HEMATOLOGY [place] [address] Scheduled Procedures Name Priority Associated Diagnoses Date/Ti me EGD, UPPER GI ENDOSCOPY (WRV U 2.09) Irritable bowel syndrome with constipation COLONOSCOPY, DIAGNOSTIC (WRV U 3.26) Irritable bowel syndrome with constipation documented as of this encounter Visit Diagnoses Not on filedocumented in this encounter Care Teams Locksmith Helper Relationship Specialty Start Date End Date Rodney Padilla MD PCP - General 07/18/22 04/09/24 documented as of this encounter
--- OUTSIDE RECORDS SUMMARY | 2024-06-07 13:33 | XMS_ITS | Encounter Summary ---
Author Organization [facility] Address [facility] [address] Care Team Providers Care Conche Loader And Unloader Name Role Phone Rodney Padilla MD Primary [...] Medicine at [facility] [address] [place] [address] Daryn Garrett MD [facility] DR LILI [place]ER [place] [address] 10/02/2024 1:00 PM EDT Office [place] [phone] Juanpablo Hernandez MD [facility] [place] [address] 01/30/2025 1:30 PM EDT Laboratory Appointment Lab at [facility] Hematology Oncology [address] [place] [phone] 01/30/2025 3:[address] [place] [address] Arturo Cordero MD [facility] H[place]ATOLOGY [place] [address] 01/30/2025 4:15 PM EDT Office Visit Hematology [place] [address] Arturo Cordero MD [facility] DR HEMATOLOGY [place] [address] Scheduled Procedures Name Priority Associated Diagnoses Date/Ti me EGD, UPPER GI ENDOSCOPY (WRV U 2.09) Irritable bowel syndrome with constipation COLONOSCOPY, DIAGNOSTIC (WRV U 3.26) Irritable bowel syndrome with constipation documented as of this encounter Visit Diagnoses Not on filedocumented in this encounter Care Teams Conche Loader And Unloader Relationship Specialty Start Date End Date Rodney Padilla MD PCP - General 07/18/22 04/09/24 documented as of this encounter
--- OUTSIDE RECORDS SUMMARY | 2024-06-07 13:33 | XMS_ITS | Encounter Summary ---
Author Organization [facility] Address [facility] [place] [address] Care Team Providers Care Material Control Manager Name Role Phone Rodney Padilla MD Primary Care Provider Reason for Visit * Reason Onset Date Comments Medication Refill 09/25/2022 Encounter Details Date Type Department Care Team (Late st Contact Info) Description 09/25/2022 Refill Family Medicine at [facility] [address] [place] [address] Luis E Narayan MD [facility] DR LILI [place] [address] Social History Tobacco Use Types Packs/Day Years [...] Notes * Telephone [facility] - [facility]/26/2022 11:41 AM EDT Prescription Renewal Request Name: Alize Gramajo : 1960 Prescription(s) Requested: Requested Prescriptions Pending Prescriptions Disp Refills ??? fluticasone propionate (Flonase) 50 mcg/actuation [place], Suspension 16 g 11 Si spray by [...] AM EST Office Visit Internal Medicine at [place] [address] [place] [phone] Daryn Garrett MD [facility] DR LILI [place] [address] 10/02/2024 1:00 PM EDT Office [place] [phone] Juanpablo Hernandez MD [facility] [place] [address] 01/30/2025 1:30 PM EDT Laboratory Appointment Lab at [facility] Hematology Oncology [address] [place] [phone] 01/30/2025 3:[address] [place] [phone] Arturo Cordero MD [facility] HEMATOLOGY AND ONCOLOGY [place], [place] [phone] 01/30/2025 4:15 PM EDT Office Visit Hematology [place] [address] Arturo Cordero MD [facility] DR [place] [address] Scheduled Procedures Name Priority Associated Diagnoses Date/Ti me EGD, UPPER GI ENDOSCOPY (WRV U 2.09) Irritable bowel syndrome with constipation COLONOSCOPY, DIAGNOSTIC (WRV U 3.26) Irritable bowel syndrome with constipation documented as of this encounter Visit Diagnoses Not on filedocumented in this encounter Care Teams Material Control Manager Relationship Specialty Start Date End Date Rodney Padilla MD PCP - General 07/18/22 04/09/24 documented as of this encounter
--- OUTSIDE RECORDS SUMMARY | 2024-06-07 13:33 | XMS_ITS | Encounter Summary ---
Author Organization [facility] Address [facility] [place] [address] Care Team Providers Care Can Doffer Name Role Phone Luis E Narayan MD Primary Care Provider [phone] Encounter Details Date Type Department Care Team [...] AM EST Office Visit Internal Medicine at [place] [address] [place] [address] Daryn Garrett MD [facility] DR LILI [place] [address] 10/02/2024 1:00 PM EDT Office [place] [phone] Juanpablo Hernandez MD [facility] [place] [address] 01/30/2025 1:30 PM EDT Laboratory Appointment Lab at [facility] Hematology Oncology [address] [place] [phone] 01/30/2025 3:[address] [place] [phone] Arturo Cordero MD [facility] [place] [address] 01/30/2025 4:15 PM EDT Office Visit Hematology [place] [address] Arturo Cordero MD [facility] [place] [address] Scheduled Procedures Name Priority Associated Diagnoses Date/Ti me EGD, UPPER GI ENDOSCOPY (WRV U 2.09) Irritable bowel syndrome with constipation COLONOSCOPY, DIAGNOSTIC (WRV U 3.26) Irritable bowel syndrome with constipation documented as of this encounter Visit Diagnoses Not on filedocumented in this encounter Care Teams Can Doffer Relationship Specialty Start Date End Date Luis E Narayan MD [facility] [address] [place] [address] PCP - General Family Medicine 01/20/22 07/17/22 documented as of this encounter
--- OUTSIDE RECORDS SUMMARY | 2024-06-07 13:33 | XMS_ITS | Encounter Summary ---
[place] [address] Care Team Providers Care Circular Saw Edge Fuser Name Role Phone Rodney Padilla MD Primary Care Provider Reason for Referral * Diagnostic Test (Routine) - Closed Specialty Diagnoses / Procedures Referred By Contac t Referred To Contact Radiology Diagnoses Dyspepsia Nausea without vomiting Procedures NM Gastric Emptying Scan Alejandra Pop TRIMMER SORTER [address] [place] [address] [place] [address] Referral ID Status Reason Start Date Expiration Date V isits Requested Visits Authorized [id number] Closed Specialty Service Requested 06/17/2022 12/17/2023 1 1 Reason for Visit * Diagnostic Test (Routine) - Closed Specialty Diagnoses / Procedures Referred By Contac t Referred To Contact Radiology Diagnoses Dyspepsia Nausea without vomiting Procedures NM Gastric Emptying Scan Alejandra Pop APRN [address] [place] [address] [place] [address] Referral ID Status Reason Start Date Expiration Date V isits Requested Visits Authorized [id number] Closed Specialty Service Requested 06/17/2022 12/17/2023 1 1 Encounter Details Date Type Department Care Team (Latest Contact Info) Description 10/18/2022 10:21 AM EDT Hospital Encounter Nuclear Medicine at [facility] [place] [address] Alejandra Pop, TRIMMER SORTER [address] [place] [address] Dyspepsia; Nausea without vomiting Discharge Disposition: Home [...] 09/26/2022 09/19/2023 fluticasone propionate (Flonase) 50 mcg/actuation [place], Suspension 1 spray by Each Nare route [...] MiscIndications:Simpl e chronic bronchitis 1 each by [facility]Non-Drug; Combo Route) route every 4 hours as [...] 1 each 12/10/2021 02/04/2023 FreeStyle Sanjana 2 [place] MiscIndications:diabe escobar mellitus 1 each by Other [...] AM EST Office Visit Internal Medicine at [address] [phone] Daryn Garrett MD [facility] DR LILI WALKER [place] [address] 10/02/2024 1:00 PM EDT Office [place] [phone] Juanpablo Hernandez MD [facility] [place] [address] 01/30/2025 1:30 PM EDT Laboratory Appointment Lab at [facility] Hematology Oncology [address] [place] [phone] 01/30/2025 3:[address] [place] [place] [phone] Arutro Cordero MD [facility] HEMATOLOGY [place] [address] 01/30/2025 4:15 PM EDT Office Visit [place]ology [place] [phone] Arturo Cordero MD [facility] HEMATOLOGY [place] [address] Scheduled Procedures Name Priority Associated Diagnoses Date/Ti [...] questions please contact the health critical care rn that requested your imaging first. ? Electronically signed by: Brett Chapman MD, [facility] ([phone]), at 10/18/2022 3:12 PM Narrative 10/18/2022 3:12 [...] have questions please contactthe health critical care rn that requested your imaging first. Alejnadra Pop TRIMMER SORTER IMG [place] ORDERABLE S documented in this [...] mCi documented in this encounter Care Teams Circular Saw Edge Fuser Relationship Specialty Start Date End Date Rodney Padilla MD PCP - General 07/18/22 04/09/24 documented as of this encounter
--- OUTSIDE RECORDS SUMMARY | 2024-06-07 13:33 | XMS_ITS | Encounter Summary ---
Author Organization Replaced By [facility] Address [facility] [place] [address] Care Team Providers Care Typewriter Tester Name Role Phone Rodney Padilla MD [...] AM EST Office Visit Internal Medicine at [facility] [address] [place] [phone] Daryn Garrett MD [facility] DR LILI WALKER [place] [address] 10/02/2024 1:00 PM EDT Office [place] [phone] Juanpablo Hernandez MD [facility] [place] [address] 01/30/2025 1:30 PM EDT Laboratory Appointment Lab at [facility] Hematology Oncology [address] [place] [phone] 01/30/2025 3:[address] [place] [phone] Arturo Cordero MD [facility] HEMATOLOGY [place] [address] 01/30/2025 4:15 PM EDT Office Visit Hematology [place] [address] Arturo Cordero MD [facility] DR HEMATOLOGY [place] [address] Scheduled Procedures Name Priority Associated Diagnoses Date/Ti me EGD, UPPER GI ENDOSCOPY (WRV U 2.09) Irritable bowel syndrome with constipation COLONOSCOPY, DIAGNOSTIC (WRV U 3.26) Irritable bowel syndrome with constipation documented as of this encounter Visit Diagnoses Not on filedocumented in this encounter Care Teams Typewriter Tester Relationship Specialty Start Date End Date Rodney Padilla MD PCP - General 07/18/22 04/09/24 documented as of this encounter
--- OUTSIDE RECORDS SUMMARY | 2024-06-07 13:33 | XMS_ITS | Encounter Summary ---
[place] [address] Care Team Providers Care Faculty Member Name Role Phone Rodney Padilla MD Primary Care Provider Reason for Visit * Diagnostic Test (Routine) - Closed Specialty Diagnoses / Procedures Referred By Gonzalez kumari Referred To Contact Radiology Diagnoses Dyspepsia Nausea without vomiting Procedures NM Gastric Emptying Scan Alejandra Pop, ELECTRICAL WORKER [address] [place] [address] [place] [address] Referral ID Status Reason Start Date Expiration Date V isits Requested Visits Authorized [id number] Closed Specialty Service Requested 06/17/2022 12/17/2023 1 1 Encounter Details Date Type Department Care Team (Latest Contact Info) Description 10/18/2022 10:22 AM EDT - 10/18/2022 11:59 PM EDT Hospital Encounter [place] [phone] Alejandra Pop ELECTRICAL WORKER [address] [place] [address] Discharge Disposition: Home Social History [...] 09/19/2023 fluticasone propionate (Flonase) 50 mcg/actuation [place], Suspension 1 spray by Each Nare route [...] 1 each 12/10/2021 02/04/2023 FreeStyle Sanjana 2 [place] MiscIndications:diabe escobar mellitus 1 each by Other [...] Office Visit Internal Medicine at [facility] [address] [place] [phone] Daryn Garrett MD [facility] DR LILI AZEVEDO [place] [address] 10/02/2024 1:00 PM EDT Office Visit Ophthalmology at [place] [phone] Juanpablo Hernandez MD [facility] [place] [address] 01/30/2025 1:30 PM EDT Laboratory Appointment Lab at [facility] Hematology Oncology [address] [place], [place] [phone] 01/30/2025 3:[address] Scan at [place] [phone] Arturo Cordero MD [facility] DR HEMATOLOGY [place] [address] 01/30/2025 4:15 PM EDT Office Visit Hematology and Oncology at [place] [phone] Arturo Cordero MD [facility] DR HEMATOLOGY [place] [address] Scheduled Procedures Name Priority Associated Diagnoses Date/Ti [...] who have questions please contact the health sub acute care nurse that requested your imaging first. [...] patients who have questions please contactthe health sub acute care nurse that requested your imaging first. Alejandra Pop ELECTRICAL WORKER IMG [place] ORDERABLE S documented in this encounter Visit Diagnoses Not on filedocumented in this encounter Care Teams Faculty Member Relationship Specialty Start Date End Date Rodney Padilla MD PCP - General 07/18/22 04/09/24 documented as of this encounter
--- OUTSIDE RECORDS SUMMARY | 2024-06-07 13:33 | XMS_ITS | Encounter Summary ---
Author Organization [facility] Address [facility] [place] [address] Care Team Providers Care Creative/Art Director Name Role Phone Rodney Padilla MD [...] AM EST Office Visit Internal Medicine at [facility] [address] [place] [address] Daryn Garrett MD [facility] DR LILI WALKER [place] [address] 10/02/2024 1:00 PM EDT Office [place] [phone] Juanpablo Hernandez MD [facility] [place] [address] 01/30/2025 1:30 PM EDT Laboratory Appointment Lab at [facility] Hematology Oncology [address] [place] [phone] 01/30/2025 3:[address] [place] [phone] Arturo Cordero MD [facility] HEMATOLOGY [place] [address] 01/30/2025 4:15 PM EDT Office Visit Hematology [place] [address] Arturo Cordero MD [facility] DR HEMATOLOGY [place] [address] Scheduled Procedures Name Priority Associated Diagnoses Date/Ti me EGD, UPPER GI ENDOSCOPY (WRV U 2.09) Irritable bowel syndrome with constipation COLONOSCOPY, DIAGNOSTIC (WRV U 3.26) Irritable bowel syndrome with constipation documented as of this encounter Visit Diagnoses Not on filedocumented in this encounter Care Teams Creative/Art Director Relationship Specialty Start Date End Date Rodney Padilla MD PCP - General 07/18/22 04/09/24 documented as of this encounter
--- OUTSIDE RECORDS SUMMARY | 2024-06-07 13:33 | XMS_ITS | Encounter Summary ---
Author Organization [facility] Address [facility] [place] [address] Care Team Providers Care Animal Attendant Name Role Phone Daryn Garrett MD Primary Care Provider Reason for Visit * Reason Onset Date Comments Medication Refill 09/18/2022 Encounter Details Date Type Department Care Team (Late st Contact Info) Description 09/18/2022 Refill Family Medicine at [facility] [address] [place] [address] Tamera Khan APRN [facility] DR LILI WALKER[place] [address] Social History Tobacco Use Types Packs/Day Years [...] Medicine at [facility] [address] [place] [address] Daryn Garrett MD [facility] DR LILI [place]ER [place] [address] 10/02/2024 1:00 PM EDT [place] [phone] Juanpablo Hernandez MD [facility] [place] [address] 01/30/2025 1:30 PM EDT Laboratory Appointment Lab at [facility] Hematology Oncology [address] [place] [phone] 01/30/2025 3:[address] [place] [place] [address] Arturo Cordero MD [facility] DR HEMATOLOGY [place] [address] 01/30/2025 4:15 PM EDT Office Visit [place] [phone] Arturo Cordero MD [facility] DR HEMATOLOGY [place] [address] Scheduled Procedures Name Priority Associated Diagnoses Date/Ti me EGD, UPPER GI ENDOSCOPY (WRV U 2.09) Irritable bowel syndrome with constipation COLONOSCOPY, DIAGNOSTIC (WRV U 3.26) Irritable bowel syndrome with constipation documented as of this encounter Visit Diagnoses Not on filedocumented in this encounter Care Teams Animal Attendant Relationship Specialty Start Date End Date Daryn Garrett MD [facility] [address] [place] [address] PCP - General 04/10/24 documented as of this encounter
--- OUTSIDE RECORDS SUMMARY | 2024-06-07 13:33 | XMS_ITS | Encounter Summary ---
Author Organization [facility] Address [facility] [place] [address] Care Team Providers Care Bank Teller Machine Mechanic Name Role Phone Rodney Padilla MD Primary Care Provider Reason for Visit * Reason Onset Date Comments Diabetes 11/09/2022 Encounter Details Date Type Department Care Team (Late st Contact Info) Description 11/09/2022 1:30 PM EDT Telephone Family Medicine at [facility] [address] [place] [phone] Julia Low, [facility] Diabetes Social History Tobacco Use [...] Overnight 153 194 257 142 123 163 30-Oct 227 182 245 181 106 1-November 169 193 179 108 126 2-November 162 199 AM PHI PM BED O/N Average 188 193 204 194 147 118 163 Lowest 162 193 179 142 108 106 163 Highest 227 193 257 245 181 126 163 Daily Avg 173 eA1c [id number] Average BG Readings before insulin: 175 Assessment [...] EST Office Visit Internal Medicine at [address] [address] Daryn Garrett MD [facility] DR LILI WALKER - [place] [address] 10/02/2024 1:00 PM EDT Office [place] [address] Juanpablo Hernandez MD [facility] [place] [address] 01/30/2025 1:30 PM EDT Laboratory Appointment Lab at [facility] Hematology Oncology [address] [place] [phone] 01/30/2025 3:[address] [place] [phone] Arturo Cordero MD [facility] HEMATOLOGY [place] [address] 01/30/2025 4:15 PM EDT Office Visit Hematology [place] [phone] Arturo Cordero MD [facility] HEMATOLOGY [place] [address] Scheduled Procedures Name Priority Associated Diagnoses Date/Ti me EGD, UPPER GI ENDOSCOPY (WRV U 2.09) Irritable bowel syndrome with constipation COLONOSCOPY, DIAGNOSTIC (WRV U 3.26) Irritable bowel syndrome with constipation documented as of this encounter Visit Diagnoses Diagnosis Type 2 diabetes mellitus without long-term current use of insulin documented in this encounter Care Teams Bank Teller Machine Mechanic Relationship Specialty Start Date End Date Rodney Padilla MD PCP - General 07/18/22 04/09/24 documented as of this encounter
--- OUTSIDE RECORDS SUMMARY | 2024-06-07 13:33 | XMS_ITS | Encounter Summary ---
Author Organization [facility] Address [facility] [place] [address] Care Team Providers Care Household Appliances Salesperson Name Role Phone Luis E Narayan MD Primary Care Provider +1- [phone] Reason for Visit * Reason Onset Date Comments Medication Refill 07/11/2022 Encounter Details Date Type Department Care Team (Late st Contact Info) Description 07/11/2022 Refill Family Medicine at [facility] [address] [place] [address] Ally Lerner APRN [facility] [place] [address] Social History Tobacco Use Types Packs/Day Years [...] Office Visit Internal Medicine at [facility] [address] [place] [address] Daryn Garrett MD [facility] DR LILI [place] [address] 10/02/2024 1:00 PM EDT Office [place] [address] Juanpablo Hernandez MD [facility] [place] [address] 01/30/2025 1:30 PM EDT Laboratory Appointment Lab at [facility] [place] [place] Hematology Oncology [address] [place] [address] 01/30/2025 3:[address] Scan at [place] [phone] Arturo Cordero MD [facility] [place] [address] 01/30/2025 4:15 PM EDT Office Visit Hematology [place] [address] Arturo Cordero MD [facility] [place] [address] Scheduled Procedures Name Priority Associated Diagnoses Date/Ti me EGD, UPPER GI ENDOSCOPY (WRV U 2.09) Irritable bowel syndrome with constipation COLONOSCOPY, DIAGNOSTIC (WRV U 3.26) Irritable bowel syndrome with constipation documented as of this encounter Visit Diagnoses Not on filedocumented in this encounter Care Teams Household Appliances Salesperson Relationship Specialty Start Date End Date Luis E Narayan MD [facility] DR LILI AZEV[place] [address] PCP - General Family Medicine 01/20/22 07/17/22 documented as of this encounter
--- OUTSIDE RECORDS SUMMARY | 2024-06-07 13:34 | XMS_ITS | Encounter Summary ---
Author Organization [facility] [place] [address] Care Team Providers Care Recreational Facilities Motel Manager Name Role Phone Luis E Narayan MD Primary Care Provider +1- [phone] Encounter Details Date Type Department Care Team (Latest Contact Info) Description 05/13/2022 12:52 PM EDT - 05/13/2022 11:59 PM EDT Hospital Encounter Hematology [place] [address] Ocular melanoma, left; Renal cell cancer, left; [...] 4 times daily. 15 g 04/21/2022 07/11/2022 LORazepam (Ativan) 0.5 mg TabletIndications:anxi ety Take 0.5 mg by mouth every 8 hours. Indications: anxious 04/04/2022 05/27/2024 amoxicillin-clavulanat e (Augmentin) 875-125 mg Tablet TAKE [...] each 11 12/10/2021 02/04/2023 FreeStyle Sanjana 2 Darden MiscIndications:diabet es mellitus 1 each by Other route daily. Indications: diabetes mellitus 1 each 10/26/2021 01/23/2023 FreeStyle Sanjana 2 Sensor KitIndications:diabete s mellitus 1 each by Other route every 14 days. Indications: diabetes mellitus 2 kit 10/26/2021 01/23/2023 FreeStyle Lancets 28 gauge MiscIndications:diabet es mellitus 1 each by Other route 3 times daily. Indications: diabetes mellitus 100 each 10/11/2021 06/16/2022 fluticasone propionate (Flonase) 50 mcg/actuation [place], Suspension 1 spray by Each Nare route [...] at [facility] [address] [place] [address] Daryn Garrett MD [facility] DR LILI [place] [address] 10/02/2024 1:00 PM EDT Office [place] [phone] Juanpablo Hernandez MD [facility] [place] [place] [address] 01/30/2025 1:30 PM EDT Laboratory Appointment Lab at [facility] [place] [address] [place] [phone] 01/30/2025 3:[address] [place] [phone] Arturo Cordero MD [facility] DR [place] [address] 01/30/2025 4:15 PM EDT Office Visit Hematology [place] [address] Arturo Cordero MD [facility] [place] [address] Scheduled Procedures Name Priority Associated Diagnoses Date/Ti [...] (05/13/2022 1:05 PM EDT) Research Venipuncture Drawn [facility] Comment: Collection date/time has been modified to: 13:05:00. ??Previous collection date/time: 13:08:00. Corrected from Drawn [NA] on 05/13/22 13:36:44 EDT by Cyndi Dowd Blood 05/13/2022 1:05 PM EDT 05/13/2022 1:25 PM EDT Narrative Resulting Agency Comment Spec In Lab Dar Fernandez MD CHEMISTRY ORDERABLES [facility] [place] [address] documented in this encounter Visit Diagnoses Diagnosis Ocular melanoma, left Renal cell cancer, left Malignant melanoma of conjunctiva, left documented in this encounter Care Teams Recreational Facilities Motel Manager Relationship Specialty Start Date End Date Luis E Narayan MD [facility] DR LILI WALKER[place] [address] PCP - General Family Medicine 01/20/22 07/17/22 documented as of this encounter
--- OUTSIDE RECORDS SUMMARY | 2024-06-07 13:34 | XMS_ITS | Encounter Summary ---
[place] [address] Care Team Providers Care Payroll Master Name Role Phone Luis E Narayan MD Primary Care Provider +1- [phone] Reason for Visit * Reason Comments Genetic Evaluation * Consultation (Routine) - Closed Specialty Diagnoses / Procedures Referred By Gonzalez kumari Referred To Contact Hematology and Oncology Diagnoses History of malignant melanoma of eye Alonso Young MD [facility] [place] [address] [facility] [address] [place] [address] Referral ID Status Reason Start Date Expiration Date V isits Requested Visits Authorized [id number] Closed Consult, Test & Treat 02/14/2022 02/14/2023 1 1 Encounter Details Date Type Department Care Team (Late st Contact Info) Description 05/13/2022 12:00 PM EDT Office Visit Hematology [place] [address] Tito Matta V, [facility] Hematology/[place] [address] Malignant melanoma of conjunctiva, left; [...] who was initially diagnosed with kidney cancer [id number] and 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 In 03/2020 Alize met with her fiscal analyst and was noted to have a pigmented [...] Aunt Unknown primary Maternal ethnic background is Palau[place]. Paternal ethnic background is [place]an. There is no known Ashkenazi Faith ancestry. Genetic risk assessment Based on personal [...] as well as other findings such as ELECTRICAL JOURNEYMAN and ocular hemangioblastomas, paragangliomas/pheochromocytomas, pancreatic neuroendocrine tumors, [...] gene alteration. Alize opted for testing with [facility] Renal/Urinary Tract Cancers Panel, a next generation sequencing panel that simultaneously analyzes 25 genes, including BAP1 and VHL, that contribute to increased risk for cancer. Testing will reflex to [facility] Multi-Cancer Panel, an 84 gene panel (including the genes on the Renal/Urinary Tract Cancers Panel). Alize was consented. Her blood sample was drawn and sent to [facility]. We reviewed [facility] billing policy. Alize will be notified by text and/or email regarding her estimated out of pocket cost for testing once [facility] completes their benefits investigation. At thattime, if Alize is concerned about the estimated test cost she will have the option to contact [facility] directly and either apply for [facility] patient assistance program to try and reduce cost of testing based on income information, cancel testing, or switch to a self-pay option of $250. If Alize does not respond to [facility], testing will be billed to her insurance [...] EST Office Visit Internal Medicine at [facility] [address] [place] [address] Daryn Garrett MD [facility] DR LILI [place] [address] 10/02/2024 1:00 PM EDT Office [place] [phone] Juanpablo Hernandez MD [facility] [place] [address] 01/30/2025 1:30 PM EDT Laboratory Appointment Lab at [facility] Hematology Oncology [address] [place] [phone] 01/30/2025 3:[address] [place] [phone] Arturo Cordero MD [facility] DR [place] [address] 01/30/2025 4:15 PM EDT Office Visit Hematology [place] [phone] Arturo Cordero MD [facility] DR [place] [address] Scheduled Procedures Name Priority Associated Diagnoses Date/Ti [...] kidney documented in this encounter Care Teams Payroll Master Relationship Specialty Start Date End Date Luis E Narayan MD [facility] DR LILI [place] [address] PCP - General Family Medicine 01/20/22 07/17/22 documented as of this encounter
--- OUTSIDE RECORDS SUMMARY | 2024-06-07 13:34 | XMS_ITS | Encounter Summary ---
Author Organization [facility] Address [facility] [place] [address] Care Team Providers Care Field Service Engineer Name Role Phone Luis E Narayan MD Primary Care Provider +1- [phone] Encounter Details Date Type Department Care Team (Late st Contact Info) Description 06/21/2022 Orders Only [place]ematology [place] [address] Leandra Lopes, PAYROLL ADMINISTRATIVE ASSISTANT [facility] [place] [address] Ocular melanoma, left Social History Tobacco Use [...] [facility] [address] [place] [phone] Darny Garrett MD [facility] DR LILI [place] [address] 10/02/2024 1:00 PM EDT Office [place] [phone] Juanpablo Hernandez MD [facility] [place] [address] 01/30/2025 1:30 PM EDT Laboratory Appointment Lab at [facility] Hematology Oncology [address] [place] [phone] 01/30/2025 3:[address] [place] [address] Arturo Codrero MD [facility] [place] [address] 01/30/2025 4:15 PM EDT Office Visit Hematology and Oncology at [facility] [place] [phone] Arturo Cordero MD [facility] [place] [address] Scheduled Procedures Name Priority Associated Diagnoses Date/Ti me EGD, UPPER GI ENDOSCOPY (WRV U 2.09) Irritable bowel syndrome with constipation COLONOSCOPY, DIAGNOSTIC (WRV U 3.26) Irritable bowel syndrome with constipation documented as of this encounter Results * (ABNORMAL) Comprehensive metabolic panel (non-fasting) (06/23/2022 11:47 AM EST) Glucose 274(H) 65 - 199 mg/dL [facility] Comment:Diabetes: >=200 mg/d L plus symptoms Blood Urea Nitrogen 12 8 - 18 mg/dL [facility] Creatinine 0.92 0.70 - 1.20 mg/dL [facility] Sodium 139 135 - 145 mmol/L [facility] Potassium 4.1 3.5 - 5.0 mmol/L [facility] Comment: Please note: ??Patients with WBC >100,000 may have falsely elevated Potassium levels. ??For accurate Potassium quantification in these patients send serum separator tube (gold top) for subsequent determinations. ??Contact the Clinical Chemistry Laboratory if there are any questions. Chloride 104 98 - 107 mmol/L [facility] Carbon Dioxide 25 22 - 31 mmol/L [facility] Anion Gap 10 5 - 15 mmol/L [facility] Calcium 9.6 8.5 - 10.5 mg/dL [facility] Protein, Total 7.0 6.1 - 8.0 g/dL [facility] Albumin 4.2 3.2 - 5.2 g/dL [facility] Aspartate Aminotransferase 16 0 - 30 unit/L [facility] Alanine Aminotransferase 27 0 - 30 unit/L [facility] Alkaline Phosphatase 113(H) 35 - 105 unit/L [facility] Bilirubin, Total 0.5 0.2 - 1.3 mg/dL [facility] Est Glomerular Filtration Rate 70 >=60 mL/min/1. 73 m?? [facility] Comment: This patient's estimated GFR [...] APRN CHEMISTRY ORDERABL ES Performing Organization Address City/State/[facility] Co de Phone Number [facility] [place] [address] documented in this encounter Visit Diagnoses Diagnosis Ocular melanoma, left documented in this encounter Care Teams Field Service Engineer Relationship Specialty Start Date End Date Luis E Narayan MD [facility] DR LILI [place] [address] PCP - General Family Medicine 01/20/22 07/17/22 documented as of this encounter
--- OUTSIDE RECORDS SUMMARY | 2024-06-07 13:34 | XMS_ITS | Encounter Summary ---
Author Organization [facility] Address [facility] [place] [address] Care Team Providers Care Fine Grade Operator Name Role Phone Luis E Narayan MD Primary Care Provider +1- [phone] Reason for Visit * Reason Comments Follow-up Encounter Details Date Type Department Care Team (Late st Contact Info) Description 04/19/2022 3:30 PM EDT Office Visit Family Medicine at [facility] [address] [place] [address] Suzanne Martinez APRN [facility] DR LILI WALKER[place] [address] LLQ pain; Community acquired pneumonia, unspecified laterality; [...] this encounter Progress Notes * Suzanne Martinez, INFORMATION RESOURCE CONSULTANT - 04/19/2022 3:30 PM EDT Alize Gramajo is a 61 y.o. female , patient of Luis E Narayan MD here for Chief Complaint Patient presents with ??? Follow-up Subjective HPI: Alize presents for ED follow up for [facility] visit for LLQ pain and [...] but ongoing. Treated empirically with Augmentin at [facility] for ?diverticulitis and she is [...] 3:49 PM EDT Associated Problem(s): Adrenal mass (Resolved 05/27/2024) Patient was not aware of the adrenal [...] AM EST Office Visit Internal Medicine at [address] [address] Daryn Garrett MD [facility] DR LILI [place] [address] 10/02/2024 1:00 PM EDT Office [place] [address] Juanpablo Hernandez MD [facility] [place] [place] [address] 01/30/2025 1:30 PM EDT Laboratory Appointment Lab at [facility] Hematology Oncology [address] [place] [phone] 01/30/2025 3:[address] [place] [address] Arturo Cordero MD [facility] DR HEMATOLOGY [place] [address] 01/30/2025 4:15 PM EDT Office Visit Hematology [place] [address] Arturo Cordero MD [facility] DR HEMATOLOGY [place] [address] Scheduled Procedures Name Priority Associated Diagnoses Date/Ti [...] non-specific documented in this encounter Care Teams Fine Grade Operator Relationship Specialty Start Date End Date Luis E Narayan MD [facility] [address] [place] [address] PCP - General Family Medicine 01/20/22 07/17/22 documented as of this encounter
--- OUTSIDE RECORDS SUMMARY | 2024-06-07 13:34 | XMS_ITS | Encounter Summary ---
Author Organization [facility] Address [facility] [place] [address] Care Team Providers Care Timber Deadener Name Role Phone Luis E Narayan MD Primary Care Provider +1- [phone] Encounter Details Date Type Department Care Team [...] AM EST Office Visit Internal Medicine at [place] [address] [place] [address] Daryn Garrett MD [facility] DR LILI [place] [address] 10/02/2024 1:00 PM EDT Office [place] [phone] Juanpablo Hernandez MD [facility] [place] [address] 01/30/2025 1:30 PM EDT Laboratory Appointment Lab at [facility] [place] Hematology Oncology [address] [place] [phone] 01/30/2025 3:[address] [place] [address] Arturo Cordero MD [facility] HEMATOLOGY [place] [address] 01/30/2025 4:15 PM EDT Office Visit [place]ology [place] [address] Arturo Cordero MD [facility] [place]AT[place]Y [place] [address] Scheduled Procedures Name Priority Associated Diagnoses Date/Ti me EGD, UPPER GI ENDOSCOPY (WRV U 2.09) Irritable bowel syndrome with constipation COLONOSCOPY, DIAGNOSTIC (WRV U 3.26) Irritable bowel syndrome with constipation documented as of this encounter Visit Diagnoses Not on filedocumented in this encounter Care Teams Timber Deadener Relationship Specialty Start Date End Date Luis E Narayan MD [facility] DR [address] [place] [address] PCP - General Family Medicine 01/20/22 07/17/22 documented as of this encounter
--- OUTSIDE RECORDS SUMMARY | 2024-06-07 13:34 | XMS_ITS | Encounter Summary ---
Author Organization [facility] Address [facility] [place] [address] Care Team Providers Care Ecological Economist Name Role Phone Luis E Narayan MD Primary Care Provider Encounter Details Date Type Department Care Team (Late st Contact Info) Description 05/13/2022 Orders Only Hematology [place] [address] Tito Matta V, [facility] Hematology/[place] [address] Ocular melanoma, left; Renal cell cancer, left [...] EST Office Visit Internal Medicine at [address] [place] [phone] Daryn Garrett MD [facility] DR LILI WALKER - [place] [address] 10/02/2024 1:00 PM EDT Office [place] [phone] Juanpablo Hernandez MD [facility] [place] [address] 01/30/2025 1:30 PM EDT Laboratory Appointment Lab at [facility] Hematology Oncology [address] [place] [phone] 01/30/2025 3:[address] [place] [address] Arturo Cordero MD [facility] DR HEMATOLOGY [place] [address] 01/30/2025 4:15 PM EDT Office Visit H[place]ology [place] [address] Arturo Cordero MD [facility] DR HEMATOLOGY [place] [address] Scheduled Procedures Name Priority Associated Diagnoses Date/Ti me EGD, UPPER GI ENDOSCOPY (WRV U 2.09) Irritable bowel syndrome with constipation COLONOSCOPY, DIAGNOSTIC (WRV U 3.26) Irritable bowel syndrome with constipation documented as of this encounter Results * Research Venipuncture (05/13/2022 1:05 PM EDT) [facility] Research Venipuncture Drawn [facility] Comment: Collection date/time has been modified to: 13:05:00. ??Previous collection date/time: 13:08:00. Corrected from Drawn [NA] on 05/13/22 13:36:44 EDT by Cyndi Dowd Blood 05/13/2022 1:05 PM EDT 05/13/2022 1:25 PM EDT Narrative Resulting Agency Comment Spec In Lab Dar Fernandez MD CHEMISTRY ORDERABLES [facility] [place] [address] documented in this encounter Visit Diagnoses Diagnosis Ocular melanoma, left Renal cell cancer, left documented in this encounter Care Teams Ecological Economist Relationship Specialty Start Date End Date Luis E Narayan MD [facility] [address] [place] [address] PCP - General Family Medicine 01/20/22 07/17/22 documented as of this encounter
--- OUTSIDE RECORDS SUMMARY | 2024-06-07 13:34 | XMS_ITS | Encounter Summary ---
Author Organization Formerly [facility] Address [facility] [address] Care Team Providers Care Machine Stacker Name Role Phone Luis E Narayan MD Primary Care Provider +1- [phone] Encounter Details Date Type Department Care Team [...] AM EST Office Visit Internal Medicine at [place] [address] [place] [address] Daryn Garrett MD [facility] DR LILI [place]ER [place] [address] 10/02/2024 1:00 PM EDT Office [place] [phone] Juanpablo Hernandez MD [facility] [place] [address] 01/30/2025 1:30 PM EDT Laboratory Appointment Lab [place] [facility] [place] [address] [place] [address] [phone] 01/30/2025 3:[address] [place] [place] [address] Arturo Cordero MD [facility] HEMATOLOG[place] [address] 01/30/2025 4:15 PM EDT Office Visit H[place]ology [place] [address] Arturo Cordero MD [facility] HEMATOLOG[place] [address] Scheduled Procedures Name Priority Associated Diagnoses Date/Ti me EGD, UPPER GI ENDOSCOPY (WRV U 2.09) Irritable bowel syndrome with constipation COLONOSCOPY, DIAGNOSTIC (WRV U 3.26) Irritable bowel syndrome with constipation documented as of this encounter Visit Diagnoses Not on filedocumented in this encounter Care Teams Machine Stacker Relationship Specialty Start Date End Date Luis E Narayan MD [facility] [address] [place] [address] PCP - General Family Medicine 01/20/22 07/17/22 documented as of this encounter
--- OUTSIDE RECORDS SUMMARY | 2024-06-07 13:34 | XMS_ITS | Encounter Summary ---
Author Organization [facility] [place] [address] Care Team Providers Care Box Worker Name Role Phone Luis E Narayan MD Primary Care Provider +1- [phone] Reason for Visit * Reason Onset Date Comments Results 05/30/2022 Encounter Details Date Type Department Care Team (Late st Contact Info) Description 05/30/2022 Telephone Hematology [place] [address] Tito Matta V [facility] Hematology/[place] [address] Results Social History Tobacco Use Types Packs/Day [...] * Telephone Encounter - Tito Matta V, [facility] - 05/30/2022 3:27 PM EST This test result was discussed with the patient by phone. A copy of the test results have been scanned in the medical record and sent to [facility]. A summary of the results is provided below. Please beadvised that [place] law requires that all health care workers respect the confidentiality ofthis information and not pass it along to other health care providers, insurance companies, or individuals without the written permission of the patient. The Familial Cancer Program welcomes any questions about these matters. Our phone number is: [phone]. On 05/13/2022 [facility] was seen for genetic [...] CDH1, CDK4, CDKN1B, CDKN1C, CDKN2A (p14ARF), CDKN2A ([id number]), CEBPA, CHEK2, CTNNA1, DICER1, DIS3L2, EGFR, EPCAM (Chris tion/duplication testing only), FH, FLCN, GATA2, GPC3, GREM1 (Promoter region deletion/duplication testing only), HOXB13, HRAS, KIT, MAX, MEN1, MET, MITF, (c.952G>A,P.Nfl975Wcv variant only), MLH1, MSH2, MSH3, MSH6, MUTYH, NBN, NF1, NF2, NTHL1, PALB2, PDGFRA, PHOX2B, PMS2, POLD1, POLE, POT1, OVOSJ2Y, PTCH1, PTEN, RAD50, RAD51C, RAD51D, RB1, RECQL4, REST, RET, RUNX1, SDHA, SDHAF2, SDHB, SDHC, SDHD, SMAD4, SMARCA4, SMARCB1, SMARCE1, STK11, SUFU, TERC, TERT, YCKT678, TP53, TSC1, TSC2, VHL, WRN,and WT1. Interpretation: [...] and/or Pap smears as recommended by [facility]'s instructional manager or primary care provider. Colon cancer screening ?? Routine colorectal cancer screening starting by age 45-50 is important for everyone, regardless of genetic predisposition. ?? Periodic colonoscopy screening as recommended by [facility]'s clinical coordinator. Skin cancer screening ?? Skin cancer screening and sun protection are important for everyone, regardless of genetic predisposition. ?? Consideration of routine dermatologic/skin exams, as recommended by [facility]'s primary care provider or aircraft maintenance technician. documented in this encounter Plan of Treatment Upcoming Encounters Date Type Department Care Team (Late st Contact Info) Description 06/28/2024 9:30 AM EST Office Visit Internal Medicine at [address] [address] Daryn Garrett MD [facility] DR LILI WALKER [place] [address] 10/02/2024 1:00 PM EDT Office [place] [address] Juanpablo Hernandez MD [facility] [place] [address] 01/30/2025 1:30 PM EDT Laboratory Appointment Lab at [facility] [place]ology Oncology [address] [place] [address] [phone] 01/30/2025 3:[address] [place] [address] Arturo Cordero MD [facility] HEMATOLOGY [place] [address] 01/30/2025 4:15 PM EDT Office Visit Hematology [place] [address] Arturo Cordero MD [facility] HEMATOLOGY [place] [address] Scheduled Procedures Name Priority Associated Diagnoses Date/Ti me EGD, UPPER GI ENDOSCOPY (WRV U 2.09) Irritable bowel syndrome with constipation COLONOSCOPY, DIAGNOSTIC (WRV U 3.26) Irritable bowel syndrome with constipation documented as of this encounter Visit Diagnoses Not on filedocumented in this encounter Care Teams Box Worker Relationship Specialty Start Date End Date Luis E Narayan MD [facility] [address] [place] [address] PCP - General Family Medicine 01/20/22 07/17/22 documented as of this encounter
--- OUTSIDE RECORDS SUMMARY | 2024-06-07 13:34 | XMS_ITS | Encounter Summary ---
Author Organization Formerly [facility] [address] Care Team Providers Care Claims Account Manager Name Role Phone Luis E Narayan MD Primary Care Provider +1- [phone] Encounter Details Date Type Department Care Team (Late st Contact Info) Description 05/13/2022 Orders [place] [address] Alejandra Pop, READING INSTRUCTOR [address] [place] [address] Social History Tobacco Use Types Packs/Day Years [...] AM EST Office Visit Internal Medicine at [facility] [address] [place] [phone] Daryn Garrett MD [facility] DR LILI [place] [address] 10/02/2024 1:00 PM EDT Office [place] [phone] Juanpablo Hernandez MD [facility] [place] [address] 01/30/2025 1:30 PM EDT Laboratory Appointment Lab at [facility] [place] On[place] [address] [place] [phone] 01/30/2025 3:[address] [place] [address] Arturo Cordero MD [facility] [place] [address] 01/30/2025 4:15 PM EDT Office Visit Hematology [place] [address] Arturo Cordero MD [facility] DR [place] [address] Scheduled Procedures Name Priority Associated Diagnoses Date/Ti me EGD, UPPER GI ENDOSCOPY (WRV U 2.09) Irritable bowel syndrome with constipation COLONOSCOPY, DIAGNOSTIC (WRV U 3.26) Irritable bowel syndrome with constipation documented as of this encounter Visit Diagnoses Not on filedocumented in this encounter Care Teams Claims Account Manager Relationship Specialty Start Date End Date LuisE Narayan MD [facility] DR [address]IL[address] [place] [address] PCP - General Family Medicine 01/20/22 07/17/22 documented as of this encounter
--- OUTSIDE RECORDS SUMMARY | 2024-06-07 13:34 | XMS_ITS | Encounter Summary ---
Author Organization [facility] Address [facility] [place] [address] Care Team Providers Care Building Serviceman Name Role Phone Luis E Narayan MD Primary Care Provider +1- [phone] Reason for Visit * Reason Onset Date Comments Medication Refill 06/19/2022 Encounter Details Date Type Department Care Team (Late st Contact Info) Description 06/19/2022 Refill Family Medicine at [facility] [address] [place] [address] Luis E Narayan MD [facility] DR LILI AZEVEDO-[place] [address] Mixed hyperlipidemia Social History Tobacco Use Types [...] EST Office Visit Internal Medicine at [facility] [address] [place] [address] Daryn Garrett MD [facility] DR LILI AZEVEDO - [place] [address] 10/02/2024 1:00 PM EDT Office [place] [address] Juanpablo Hernandez MD [facility] [place] [address] 01/30/2025 1:30 PM EDT Laboratory Appointment Lab [place] [facility] [place] [address] [place] [address] 01/30/2025 3:[address] Scan at [place] [phone] Arturo Cordero MD [facility] DR HEMATOLOGY [place] [address] 01/30/2025 4:15 PM EDT Office Visit Hematology and Oncology at [place] [phone] Arturo Cordero MD [facility] DR HEMATOLOGY [place] [address] Scheduled Procedures Name Priority Associated Diagnoses Date/Ti me EGD, UPPER GI ENDOSCOPY (WRV U 2.09) Irritable bowel syndrome with constipation COLONOSCOPY, DIAGNOSTIC (WRV U 3.26) Irritable bowel syndrome with constipation documented as of this encounter Visit Diagnoses Diagnosis Mixed hyperlipidemia documented in this encounter Care Teams Building Serviceman Relationship Specialty Start Date End Date Luis E Narayan MD [facility] DR LILI AZEVEDO-[place] [address] PCP - General Family Medicine 01/20/22 07/17/22 documented as of this encounter
--- OUTSIDE RECORDS SUMMARY | 2024-06-07 13:34 | XMS_ITS | Encounter Summary ---
Author Organization [facility] Address [facility] [place] [address] Care Team Providers Care Retail Department Manager Name Role Phone Luis E Narayan MD Primary Care Provider +1- [phone] Encounter Details Date Type Department Care Team [...] AM EST Office Visit Internal Medicine at [place] [address] [place] [address] Daryn Garrett MD [facility] DR LILI [place] [address] 10/02/2024 1:00 PM EDT Office [place] [phone] Juanpablo Hernandez MD [facility] [place] [address] 01/30/2025 1:30 PM EDT Laboratory Appointment Lab [place] [facility] [place] [address] [place] [address] [phone] 01/30/2025 3:[address] [place] [address] Arturo Cordero MD [facility] [place] [address] 01/30/2025 4:15 PM EDT Office Visit Hematology [place] [address] Arturo Cordero MD [facility] [place] [address] Scheduled Procedures Name Priority Associated Diagnoses Date/Ti me EGD, UPPER GI ENDOSCOPY (WRV U 2.09) Irritable bowel syndrome with constipation COLONOSCOPY, DIAGNOSTIC (WRV U 3.26) Irritable bowel syndrome with constipation documented as of this encounter Visit Diagnoses Not on filedocumented in this encounter Care Teams Retail Department Manager Relationship Specialty Start Date End Date Luis E Narayan MD [facility] [address] [place] [address] PCP - General Family Medicine 01/20/22 07/17/22 documented as of this encounter
--- OUTSIDE RECORDS SUMMARY | 2024-06-07 13:34 | XMS_ITS | Encounter Summary ---
Author Organization [facility] Address [facility] [place] [address] Care Team Providers Care Canvas Worker Apprentice Name Role Phone Luis E Narayan MD Primary Care Provider +1- [phone] Reason for Visit * Reason Onset Date Comments Medication Refill 06/19/2022 Encounter Details Date Type Department Care Team (Late st Contact Info) Description 06/19/2022 Refill Family Medicine at [facility] [address] [place] [address] Tamera Khan, WASTE MANAGEMENT ENGINEER [facility] DR LILI WALKER[place] [address] Bloating Social History Tobacco Use Types Packs/Day [...] at [facility] [address] [place] [address] Daryn Garrett MD [facility] DR LILI WALKER [place] [address] 10/02/2024 1:00 PM EDT Office [place] [phone] Juanpablo Hernandez MD [facility] [place] [address] 01/30/2025 1:30 PM EDT Laboratory Appointment Lab at [facility] [place] Oncology [address] [place] [phone] 01/30/2025 3:[address] [place] [address] Arturo Cordero MD [facility] HEMATOLOGY [place] [address] 01/30/2025 4:15 PM EDT Office Visit [place]ology [place] [address] Arturo Cordero MD [facility] DR HEMATOLOGY [place] [address] Scheduled Procedures Name Priority Associated Diagnoses Date/Ti me EGD, UPPER GI ENDOSCOPY (WRV U 2.09) Irritable bowel syndrome with constipation COLONOSCOPY, DIAGNOSTIC (WRV U 3.26) Irritable bowel syndrome with constipation documented as of this encounter Visit Diagnoses Diagnosis Bloating Flatulence, eructation, and gas pain documented in this encounter Care Teams Canvas Worker Apprentice Relationship Specialty Start Date End Date Luis E Narayan MD [facility] [address] [place] [address] PCP - General Family Medicine 01/20/22 07/17/22 documented as of this encounter
--- OUTSIDE RECORDS SUMMARY | 2024-06-07 13:34 | XMS_ITS | Encounter Summary ---
Author Organization [facility] [place] [address] Care Team Providers Care Policy Change Clerks Supervisor Name Role Phone Luis E Narayan MD Primary Care Provider Reason for Visit * Diagnostic Test (Routine) - Closed Specialty Diagnoses / Procedures Referred By Gonzalez kumari Referred To Contact Gastroenterology Diagnoses Bloating Dyspepsia HBT - glucose - bloating Procedures Breath Hydrogen Test HBT - glucose - bloating Alejandra Pop, TUBE BENDER HAND [address] [place] [address] [facility] [address] [place] [address] Referral ID Status Reason Start Date Expiration Date V isits Requested Visits Authorized [id number] Closed Consult, Test & Treat 03/01/2022 03/01/2023 1 1 Encounter Details Date Type Department Care Team (Late st Contact Info) Description 05/13/2022 10:00 AM EDT Procedure [place] [phone] Bloating; Dyspepsia Social History Tobacco Use Types [...] Breath Testing in Gastrointestinal Disorders: The [place] Consensus (Am J Gastroenterol 2017; 112(5):775-84. Apositive breath test is defined as a rise in hydrogen production >20 ppm compared to baseline within 90 minutes. Methane-positive is defined by at least 10 ppm production of methane. Signed, Alejandra Pop APRN [place]astro[place] [address] P: [phone] F: [phone] Copy: Alejandra Narayan MD documented in this encounter Plan of Treatment Upcoming Encounters Date Type Department Care Team (Late st Contact Info) Description 06/28/2024 9:30 AM EST Office Visit Internal Medicine at [address] [address] Daryn Garrett MD [facility] DR LIL[place] [address] 10/02/2024 1:00 PM EDT Office [place] [phone] Juanpablo Hernandez MD [facility] [place] [address] 01/30/2025 1:30 PM EDT Laboratory Appointment Lab at [facility] [place] [address] [place] [phone] 01/30/2025 3:[address] [place] [phone] Arturo Cordero MD [facility] [place] [address] 01/30/2025 4:15 PM EDT Office Visit Hematology and Oncology at [facility] [place] [address] Arturo Cordero MD [facility] [place] [address] Scheduled Procedures Name Priority Associated Diagnoses Date/Ti me EGD, UPPER GI ENDOSCOPY (WRV U 2.09) Irritable bowel syndrome with constipation COLONOSCOPY, DIAGNOSTIC (WRV U 3.26) Irritable bowel syndrome with constipation documented as of this encounter Visit Diagnoses Diagnosis Bloating Flatulence, eructation, and gas pain Dyspepsia Dyspepsia and other specified disorders of function of stomach documented in this encounter Care Teams Policy Change Clerks Supervisor Relationship Specialty Start Date End Date Luis E Narayan MD [facility] [address] [place] [address] PCP - General Family Medicine 01/20/22 07/17/22 documented as of this encounter
--- OUTSIDE RECORDS SUMMARY | 2024-06-07 13:34 | XMS_ITS | Encounter Summary ---
Author Organization [facility] [place] [address] Care Team Providers Care Rickshaw Driver Name Role Phone Luis E Narayan MD Primary Care Provider [phone] Reason for Referral * Diagnostic Test (Routine) - Closed Specialty Diagnoses / Procedures Referred By Contac t Referred To Contact Radiology Diagnoses Malignant melanoma of conjunctiva, left Procedures CT Chest Abdomen Pelvis w Contrast (Generic) Leandra Lopes APRN [facility] DR HEMATOLOGY [place] [address] [facility] [place] [address] Referral ID Status Reason Start Date Expiration Date V isits Requested Visits Authorized [id number] Closed Specialty Service Requested 12/24/2021 06/25/2023 1 1 * Diagnostic Test (Routine) - Closed Specialty Diagnoses / Procedures Referred By Contac t Referred To Contact Radiology Diagnoses Malignant melanoma of conjunctiva, left Procedures CT Neck Soft Tissue w Contrast (Generic) Leandra Lopes APRN [facility] HEMATOLOGY [place] [address] [facility] [place] [address] Referral ID Status Reason Start Date Expiration Date V isits Requested Visits Authorized [id number] Closed Specialty Service Requested 12/24/2021 06/25/2023 1 1 Reason for Visit * Diagnostic Test (Routine) - Closed Specialty Diagnoses / Procedures Referred By Contchrissy t Referred To Contact Radiology Diagnoses Malignant melanoma of conjunctiva, left Procedures CT Chest Abdomen Pelvis w Contrast (Generic) Leandra Lopes APRN [facility] DR HEMATOLOGY [place] [address] [facility] [place] [address] Referral ID Status Reason Start Date Expiration Date V isits Requested Visits Authorized [id number] Closed Specialty Service Requested 12/24/2021 06/25/2023 1 1 Encounter Details Date Type Department Care Team (Late st Contact Info) Description 06/23/2022 11:14 AM EST - 06/23/2022 11:30 AM EST Hospital [place] [phone] Leandra Lopes APRN [facility] DR HEMATOLOGY [place] [address] Malignant melanoma of conjunctiva, left Discharge Disposition: [...] 1 each 12/10/2021 02/04/2023 FreeStyle Sanjana 2 [place] MiscIndications:diabet es mellitus 1 each by Other route daily. Indications: diabetes mellitus 1 each 10/26/2021 01/23/2023 FreeStyle Sanjana 2 Sensor KitIndications:diabete s mellitus 1 each by Other route every 14 days. Indications: diabetes mellitus 2 kit 10/26/2021 01/23/2023 fluticasone propionate (Flonase) 50 mcg/actuation [place], Suspension 1 spray by Each Nare route [...] AM EST Office Visit Internal Medicine at [address] [address] Daryn Garrett MD [facility] DR LILI WALKER - [place] [address] 10/02/2024 1:00 PM EDT Office [place] [phone] Juanpablo Hernandez MD [facility] [place] [address] 01/30/2025 1:30 PM EDT Laboratory Appointment Lab at [facility] Hematology Oncology [address] [place] [phone] 01/30/2025 3:[address] [place] [phone] Arturo Cordero MD [facility] HEMATOLOGY [place] [address] 01/30/2025 4:15 PM EDT Office Visit Hematology and Oncology at [facility] [place] [address] Arturo Cordero MD [facility] DR HEMATOLOGY [place] [address] Scheduled Procedures Name Priority Associated Diagnoses Date/Ti [...] who have questions please contact the health interior plant caretaker that requested your imaging first. ? [...] patients who have questions please contactthe health interior plant caretaker that requested your imaging first. Leandra Lopes [...] who have questions please contact the health interior plant caretaker that requested your imaging first. ? Electronically signed by: Chuy Delgado MD, [facility] ([phone]), at 06/24/2022 11:34 AM Narrative 06/24/2022 11:34 [...] patients who have questions please contactthe health interior plant caretaker that requested your imaging first. Electronically signed by: Chuy Delgado MD, [facility]([phone]), at 06/24/2022 11:34 AM Leandrajohanny Lopes FLOOR TECH IMG CT ORDERABLES documented in this encounter [...] mLs documented in this encounter Care Teams Rickshaw Driver Relationship Specialty Start Date End Date Luis E Narayan MD [facility] [place] [address] [address] PCP - General Family Medicine 01/20/22 07/17/22 documented as of this encounter
--- OUTSIDE RECORDS SUMMARY | 2024-06-07 13:34 | XMS_ITS | Encounter Summary ---
Author Organization [facility] Address [facility] [place] [address] Care Team Providers Care Stock Broker Supervisor Name Role Phone Luis E Narayan MD Primary Care Provider [phone] Encounter Details Date Type Department Care Team [...] Office Visit Internal Medicine at [place] [address] [place] [address] Daryn Garrett MD [facility] DR LILI [place] [address] 10/02/2024 1:00 PM EDT Office [place] [phone] Juanpablo Hernandez MD [facility] [place] [address] 01/30/2025 1:30 PM EDT Laboratory Appointment Lab at [facility] Hematology Oncology [address] [place] [phone] 01/30/2025 3:[address] [place] [address] Arturo Cordero MD [facility] [place] [address] 01/30/2025 4:15 PM EDT Office Visit Hematology [place] [address] Arturo Cordero MD [facility] [place] [address] Scheduled Procedures Name Priority Associated Diagnoses Date/Ti me EGD, UPPER GI ENDOSCOPY (WRV U 2.09) Irritable bowel syndrome with constipation COLONOSCOPY, DIAGNOSTIC (WRV U 3.26) Irritable bowel syndrome with constipation documented as of this encounter Visit Diagnoses Not on filedocumented in this encounter Care Teams Stock Broker Supervisor Relationship Specialty Start Date End Date Luis E Narayan MD [facility] [address] [place] [address] PCP - General Family Medicine 01/20/22 07/17/22 documented as of this encounter
--- OUTSIDE RECORDS SUMMARY | 2024-06-07 13:34 | XMS_ITS | Encounter Summary ---
Author Organization [facility] [place] [address] Care Team Providers Care Residential Carpenter Name Role Phone Luis E Narayan MD Primary Care Provider Reason for Visit * Reason Comments Follow-up Encounter Details Date Type Department Care Team (Late st Contact Info) Description 06/23/2022 2:45 PM EST Office Visit [place] [address] Arturo Cordero MD [facility] [address] [place] [address] Leandra Lopes APRN [facility] [address] [place] [address] Malignant melanoma of conjunctiva, left (Primary Dx); [...] from the original note were not included. 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 Medina - 03/31/2020: saw her ski production supervisor Dr. Hernandez and was noted to have [...] uses inhalerswith good effect ??? 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 PRO EXCIS CORNEA LESN Left 05/14/2020 EXCISION OF LESION, CORNEA, EXCEPT PTERYGIUM (WRVU 7.5) performed by Juanpablo Hernandez MD at [facility] ??? PRO LAP, PARTIAL NEPHRECTOMY Left 06/28/2019 LAPAROSCOPY, PARTIAL NEPHRECTOMY, ROBOTIC ASSIST (WRVU 27.41) performed by Avila Medina MD at [facility] MAIN OR ??? 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 She continues to see Dr. Hernandez (ski production supervisor), dermatology and PCP on regular basis. Surveillance [...] least annually, or as recommended by your rn telehealth. Last visit in Feb 2022. - Regular skin and lymph node self-examination should be performed. Please report any new lesions, lumps or bumps of concern to your rn telehealth or oncology team. 3) PCP for other [...] AM EST Office Visit Internal Medicine at [address] [place] [address] Daryn Garrett MD [facility] DR LILI [place] [address] 10/02/2024 1:00 PM EDT Office [place] [phone] Juanpablo Hernandez MD [facility] [place] [address] 01/30/2025 1:30 PM EDT Laboratory Appointment Lab at [facility] [place] On[facility] [address] [place] [phone] 01/30/2025 3:[address] [place] [place] [phone] Arturo Cordero MD [facility] [address] [place] [address] 01/30/2025 4:15 PM EDT Office Visit [place]ology [place] [phone] Arturo Cordero MD [facility] [address] [place] [address] Scheduled Procedures Name Priority Associated Diagnoses Date/Ti me EGD, UPPER GI ENDOSCOPY (WRV U 2.09) Irritable bowel syndrome with constipation COLONOSCOPY, DIAGNOSTIC (WRV U 3.26) Irritable bowel syndrome with constipation documented as of this encounter Results * Lactate Dehydrogenase (12/29/2022 10:00 AM EDT) Lactate Dehydrogenase 175 110 - 220 unit/L [facility] Blood 12/29/2022 10:0 0 AM EDT 12/29/2022 10:13 AM EDT Narrative Resulting Agency Comment Spec In Lab Arturo Cordero MD CHEMISTRY ORDERABLES [facility] [place] [address] * (ABNORMAL) Comprehensive metabolic panel (non-fasting) (12/29/2022 10:00 AM EDT) Glucose 259(H) 65 - 199 mg/dL [facility] Comment:Diabetes: >=200 mg/d L plus symptoms Blood Urea Nitrogen 17 8 - 18 mg/dL [facility] Creatinine 0.84 0.70 - 1.20 mg/dL [facility] Sodium 140 135 - 145 mmol/L [facility] Potassium 4.5 3.5 - 5.0 mmol/L [facility] Comment: Please note: ??Patients with WBC >100,000 may have falsely elevated Potassium levels. ??For accurate Potassium quantification in these patients send serum separator tube (gold top) for subsequent determinations. ??Contact the Clinical Chemistry Laboratory if there are any questions. Chloride 104 98 - 107 mmol/L [facility] Carbon Dioxide 23 22 - 31 mmol/L [facility] Anion Gap 13 5 - 15 mmol/L [facility] Calcium 9.5 8.5 - 10.5 mg/dL [facility] Protein, Total 6.9 6.1 - 8.0 g/dL [facility] Albumin 4.1 3.2 - 5.2 g/dL [facility] Aspartate Aminotransferase 19 0 - 30 unit/L [facility] Alanine Aminotransferase 24 0 - 30 unit/L [facility] Alkaline Phosphatase 103 35 - 105 unit/L [facility] Bilirubin, Total 0.3 0.2 - 1.3 mg/dL [facility] Est Glomerular Filtration Rate 78 >=60 mL/min/1. 73 m?? [facility] Comment: This patient's estimated GFR was [...] In Lab Arturo Cordero MD CHEMISTRY ORDERABLES [facility] [place] [address] documented in this encounter Visit Diagnoses Diagnosis Malignant melanoma of conjunctiva, left- Primary Malignant neoplasm of left kidney documented in this encounter Care Teams Residential Carpenter Relationship Specialty Start Date End Date Luis E Narayan MD [facility] DR LILI [place] [address] PCP - General Family Medicine 01/20/22 07/17/22 documented as of this encounter
--- OUTSIDE RECORDS SUMMARY | 2024-06-07 13:34 | XMS_ITS | Encounter Summary ---
Author Organization [facility] Address [facility] [place] [address] Care Team Providers Care Statement Request Clerk Name Role Phone Daryn Garrett MD Primary Care Provider Reason for Visit * Reason Onset Date Comments Medication Refill 06/20/2022 Encounter Details Date Type Department Care Team (Late st Contact Info) Description 06/20/2022 Refill Family Medicine at [facility] [address] [place] [address] Luis E Narayan MD [facility] DR LILI WALKER[place] [address] COPD Social History Tobacco Use Types Packs/Day [...] Medicine at [facility] [address] [place] [address] Daryn Garrett MD [facility] [place] [address] 10/02/2024 1:00 PM EDT Office Visit Ophthalmology at [place] [phone] Juanpablo Hernandez MD [facility] [place] [address] 01/30/2025 1:30 PM EDT Laboratory Appointment Lab at [facility] Hematology Oncology [address] [place], [place] [phone] 01/30/2025 3:[address] Scan at [place] [phone] Arturo Cordero MD [facility] DR HEMATOLOGY [place] [address] 01/30/2025 4:15 PM EDT Office Visit Hematology and Oncology at [place] [phone] Arturo Cordero MD [facility] DR HEMATOLOGY [place] [address] Scheduled Procedures Name Priority Associated Diagnoses Date/Ti me EGD, UPPER GI ENDOSCOPY (WRV U 2.09) Irritable bowel syndrome with constipation COLONOSCOPY, DIAGNOSTIC (WRV U 3.26) Irritable bowel syndrome with constipation documented as of this encounter Visit Diagnoses Diagnosis COPD Simple chronic bronchitis documented in this encounter Care Teams Statement Request Clerk Relationship Specialty Start Date End Date Daryn Garrett MD [facility] DR LILI [place]ER [place] [address] PCP - General 04/10/24 documented as of this encounter
--- OUTSIDE RECORDS SUMMARY | 2024-06-07 13:34 | XMS_ITS | Encounter Summary ---
Author Organization [facility] [place] [address] Care Team Providers Care Channel Account Manager Name Role Phone Luis E Narayan MD Primary Care Provider [phone] Encounter Details Date Type Department Care Team (Late st Contact Info) Description 04/21/2022 Telephone Family Medicine at [address] [place] [phone] Shannon Ward, RN Social History Tobacco Use [...] 04/21/2022 4:24 PM EDT Letter received from [facility] requesting neb supplies with nebulizer order. DME order re-prepped and pended for provider review. documented in this encounter Plan of Treatment Upcoming Encounters Date Type Department Care Team (Late st Contact Info) Description 06/28/2024 9:30 AM EST Office Visit Internal Medicine at [facility] [address] [place] [address] Daryn Garrett MD [facility] [address] LILI [place] [address] 10/02/2024 1:00 PM EDT Office [place] [address] Juanpablo Hernandez MD [facility] [place] [address] 01/30/2025 1:30 PM EDT Laboratory Appointment Lab at [facility] Hematology Oncology [address] [place] [phone] 01/30/2025 3:[address] [place] [address] Arturo Cordero MD [facility] [place] [address] 01/30/2025 4:15 PM EDT Office Visit [place]ology [place] [address] Arturo Cordero MD [facility] [address] [place] [address] Scheduled Procedures Name Priority Associated Diagnoses Date/Ti me EGD, UPPER GI ENDOSCOPY (WRV U 2.09) Irritable bowel syndrome with constipation COLONOSCOPY, DIAGNOSTIC (WRV U 3.26) Irritable bowel syndrome with constipation documented as of this encounter Visit Diagnoses Diagnosis COPD Simple chronic bronchitis documented in this encounter Care Teams Channel Account Manager Relationship Specialty Start Date End Date Luis E Narayan MD [facility] DR LILI [place] [address] PCP - General Family Medicine 01/20/22 07/17/22 documented as of this encounter
--- OUTSIDE RECORDS SUMMARY | 2024-06-07 13:34 | XMS_ITS | Encounter Summary ---
Author Organization [facility] Address [facility] [place] [address] Care Team Providers Care Motion Picture Equipment Machinist Name Role Phone Luis E Narayan MD Primary Care Provider [phone] Reason for Visit * Reason Comments Follow-up Doesn't feel good, a lso just finished antibiotics for sinus infection, pt thinks there is some type of lung infection Encounter Details Date Type Department Care Team (Late st Contact Info) Description 07/07/2022 11:30 AM EST Office Visit Family Medicine at [facility] [address] [place] [phone] Tamera Khan, CLINICAL SERVICES PROFESSIONAL [facility] DR LILI AZEVED[place] [address] LLQ pain; Acute rhinosinusitis; Fatty liver Social [...] office to schedule a follow up. Call- [phone] to schedule the gastric emptying scan Nutrition: How to Make Healthier Food Choices From: familydoctor.org/eyrujljfy-uvj-tl-eorm-begddwstr-fruy-choices Having a healthy diet has a lot [...] made up of more than 50% fat. Rig Supervisor options, such as maria victoria food cake, can satisfy your sweet tooth without adding fat to your diet. Instead of this: Try this: Croissants, rolls, biscuits, and white breads Whole grain breads, including wheat, rye, and pumpernickel Doughnuts, pastries, and scones Bruneian muffins and small whole grain bagels Fried [...] almond, or cashew) butter Fried potatoes, including sami fries, hash browns, and potato chips Baked [...] seafood is high in healthy polyunsaturated fat. Beaumont-3 fatty acids also are found in some [...] low-fat, high-calcium snack option. - Nonfat or Lithuanian yogurt can replace sour cream in many [...] made with whole milk Low-fat, nonfat, or Lithuanian yogurt Regular cheese, including Cypriot, blue, brie, cheddar, karen, and parmesan Low-fat [...] and molasses cookies Shortening, butter, and margarine [place], canola, and soybean oils Regular mayonnaise Nonfat [...] follow up on her CT done by [facility] onc - questions about fatty liver dx on scan Recently was seen in the ED for sinus infection, finished course of abx Still having a non productive cough, sinus pressure and mild fever Denies chills, chest pain, shortness of breath Review of Systems As above I reviewed problem list and med list in [facility] Objective: BP 138/76 Pulse 79 Temp [...] AM EST Office Visit Internal Medicine at [address] [phone] Daryn Garrett MD [facility] DR LILI [place]EVED[place] [address] 10/02/2024 1:00 PM EDT Office [place] [phone] Juanpablo Hernandez MD [facility] [place] [place] [address] 01/30/2025 1:30 PM EDT Laboratory Appointment Lab at [facility] Hematology Oncology [address] [place] [phone] 01/30/2025 3:[address] [place] [address] Arturo Cordero MD [facility] [place] [address] 01/30/2025 4:15 PM EDT Office Visit [place]ology [place] [address] Arturo Cordero MD [facility] [place] [address] Scheduled Procedures Name Priority Associated Diagnoses Date/Ti me EGD, UPPER GI ENDOSCOPY (WRV U 2.09) Irritable bowel syndrome with constipation COLONOSCOPY, DIAGNOSTIC (WRV U 3.26) Irritable bowel syndrome with constipation documented as of this encounter Visit Diagnoses Diagnosis LLQ pain Abdominal pain, left lower quadrant Acute rhinosinusitis Acute sinusitis, unspecified Fatty liver Other chronic nonalcoholic liver disease documented in this encounter Care Teams Motion Picture Equipment Machinist Relationship Specialty Start Date End Date Luis E Narayan MD [facility] [address] [place] [address] PCP - General Family Medicine 01/20/22 07/17/22 documented as of this encounter
--- OUTSIDE RECORDS SUMMARY | 2024-06-07 13:34 | XMS_ITS | Encounter Summary ---
Author Organization [facility] [place] [address] Care Team Providers Care Auto Mechanics Instructor Name Role Phone Luis E Narayan MD Primary Care Provider [phone] Reason for Visit * Reason Onset Date Comments Appointment 04/19/2022 Encounter Details Date Type Department Care Team (Late st Contact Info) Description 04/19/2022 Telephone Internal Medicine at [facility] [address] [place] [phone] Cara Thomas, RN Appointment Social History Tobacco [...] Office Visit Internal Medicine at [facility] [address] [place] [address] [facility] DR LILI [place] [address] 10/02/2024 1:00 PM EDT Office Visit Ophthalmology at [place] [phone] [facility] [place] [place] [address] 01/30/2025 1:30 PM EDT Laboratory Appointment Lab at [facility] [place] [address] [place] [address] 01/30/2025 3:[address] Scan [place] [address] [facility] [place] [address] 01/30/2025 4:15 PM EDT Office Visit Hematology [place] [address] [facility] [place] [address] Scheduled Procedures Name Priority Associated Diagnoses Date/Ti me EGD, UPPER GI ENDOSCOPY (WRV U 2.09) Irritable bowel syndrome with constipation COLONOSCOPY, DIAGNOSTIC (WRV U 3.26) Irritable bowel syndrome with constipation documented as of this encounter Visit Diagnoses Not on filedocumented in this encounter Care Teams Auto Mechanics Instructor Relationship Specialty Start Date End Date Luis E Narayan MD [facility] [address] [place] [address] PCP - General Family Medicine 01/20/22 07/17/22 documented as of this encounter
--- OUTSIDE RECORDS SUMMARY | 2024-06-07 13:34 | XMS_ITS | Encounter Summary ---
Author Organization [facility] Address [facility] [place] [address] Care Team Providers Care Research Biologist Name Role Phone Luis E Narayan MD Primary Care Provider [phone]- [phone] Reason for Visit * Reason Onset Date Comments Medication Refill 04/21/2022 Encounter Details Date Type Department Care Team (Late st Contact Info) Description 04/21/2022 Refill Family Medicine at [facility] [address] [place] [address] Suzanne Martinez, KATHIA [facility] DR LILI AZEVED[place] [address] Social History Tobacco Use Types Packs/Day Years [...] Medicine at [facility] [address] [place] [address] Daryn Garrett MD [facility] DR LILI [place] [address] 10/02/2024 1:00 PM EDT Office Visit Ophthalmology at [place] [phone] Juanpablo Hernandez MD [facility] [place] [address] 01/30/2025 1:30 PM EDT Laboratory Appointment Lab at [facility] [place] Oncology [address] [place] [phone] 01/30/2025 3:[address] Scan at [place] [phone] Arturo Cordero MD [facility] DR [place] [address] 01/30/2025 4:15 PM EDT Office Visit Hematology [place] [address] Arturo Cordero MD [facility] DR HEMATOLOGY [place] [address] Scheduled Procedures Name Priority Associated Diagnoses Date/Ti me EGD, UPPER GI ENDOSCOPY (WRV U 2.09) Irritable bowel syndrome with constipation COLONOSCOPY, DIAGNOSTIC (WRV U 3.26) Irritable bowel syndrome with constipation documented as of this encounter Visit Diagnoses Not on filedocumented in this encounter Care Teams Research Biologist Relationship Specialty Start Date End Date Luis E Narayan MD [facility] DR LILI AZEVEDO[place] [address] PCP - General Family Medicine 01/20/22 07/17/22 documented as of this encounter
--- OUTSIDE RECORDS SUMMARY | 2024-06-07 13:34 | XMS_ITS | Encounter Summary ---
Author Organization [facility] Address [facility] [place] [address] Care Team Providers Care Statistical Methods Teacher Name Role Phone Luis E Narayan MD Primary Care Provider +1- [phone] Reason for Visit * Reason Comments Abdominal Pain LLQ, bloating, gas, heartburn, ER last night, CT scan Monday Encounter Details Date Type Department Care Team (Late st Contact Info) Description 06/07/2022 11:00 AM EST Office Visit Family Medicine at [facility] [address] [place] [phone] Tamera Khan, KATHIA [facility] DR LILI AZEVED[place] [address] Chest pain, unspecified type; Urinary urgency; Upper abdominal pain; Bloating; Severe obesity; Coronary artery disease involving [place] coronary artery of [place] heart with angina pectoris Social History Tobacco [...] this encounter Progress Notes * Tamera Khan, FIRE EXTINGUISHER REPAIRER INSPECTOR - 06/07/2022 11:00 AM EST Subjective: Patient ID: Alize Gramajo is a 61 y.o. female, presenting for ED follow up Chief Complaint Patient presents with ??? Abdominal Pain LLQ, bloating, gas, heartburn, ER last night, CT scan Monday Went to the ED last night for LLQ abdominal pain, bloating, gas, heartburn CT scan on 06/03 at [facility] showed no evidence of diverticulitis, or [...] reviewed problem list and med list in [facility] Objective: BP 139/68 (BP Location (NBP): Left [...] abdominal pain/ Bloating/ Coronary artery disease involving [place] coronary artery of [place] heart with angina pectoris ? GERD related, [...] AM EST Office Visit Internal Medicine at [address] [phone] Daryn Garrett MD [facility] DR LILI [place]EVED[place] [address] 10/02/2024 1:00 PM EDT Office [place] [phone] Juanpablo Hernandez MD [facility] [place] [address] 01/30/2025 1:30 PM EDT Laboratory Appointment Lab at [facility] Hematology Oncology [address] [place] [phone] 01/30/2025 3:[address] [place] [phone] Arturo Cordero MD [facility] HEMATOLOGY [place] [address] 01/30/2025 4:15 PM EDT Office Visit Hematology [place] [address] Arturo Cordero MD [facility] DR HEMATOLOGY [place] [address] Scheduled Procedures Name Priority Associated Diagnoses Date/Ti [...] POCT urine dipstick (06/07/2022 12:12 PM EST) [facility] POC Sp [place] 1.020 1.002 - 1.030 POC pH, UA [...] EKG 12 Lead (06/07/2022 12:07 PM EST) [facility] Ventricular rate 68 BPM MUSE SYSTEM Atrial Rate 68 BPM MUSE SYSTEM P-R Interval 148 ms MUSE SYSTEM QRS Duration 90 ms MUSE SYSTEM Q-T Interval 402 ms MUSE SYSTEM QTC Calculated (Bezet) 427 ms MUSE SYSTEM Calculated P [place] -2 degrees MUSE SYSTEM Calculated R [place] 22 degrees MUSE SYSTEM Calculated T [place] 45 degrees MUSE SYSTEM INTERPRETATION Normal sinus rhythm Nonspecific T wave abnormality When compared with ECG of 31-MAY-2021 17:16, No significant change was found I personally reviewed the tracing and agree with the fellows interpretation Confirmed by fellow MD Valarie, Molly ([id number]) on 06/07/2022 8:59:36 PM Confirmed by MD [...] obesity Morbid obesity Coronary artery disease involving [place] coronary artery of [place] heart with angina pectoris documented in this encounter Care Teams Statistical Methods Teacher Relationship Specialty Start Date End Date Luis E Narayan MD [facility] [address] [place] [address] PCP - General Family Medicine 01/20/22 07/17/22 documented as of this encounter
--- OUTSIDE RECORDS SUMMARY | 2024-06-07 13:34 | XMS_ITS | Encounter Summary ---
Author Organization [facility] [place] [address] Care Team Providers Care Bowling Ball Grader Name Role Phone Luis E Narayan MD Primary Care Provider +1- [phone] Encounter Details Date Type Department Care Team (Late st Contact Info) Description 05/07/2022 Telephone [place] [address] Dar Fernandez MD [facility] DR HEMATOLOGY/[place] [address] Social History Tobacco Use Types Packs/Day Years [...] scheduled for next week. Dar Fernandez MD veneer drier feeder in Hematology-Oncology documented in this encounter Plan of Treatment Upcoming Encounters Date Type Department Care Team (Late st Contact Info) Description 06/28/2024 9:30 AM EST Office Visit Internal Medicine at [facility] [address] [place] [phone] Daryn Garrett MD [facility] DR LILI AZEVEDO [place] [address] 10/02/2024 1:00 PM EDT Office [place] [phone] Juanpablo Hernandez MD [facility] [place] [address] 01/30/2025 1:30 PM EDT Laboratory Appointment Lab at [facility] Hematology Oncology [address] [place], [place] [phone] 01/30/2025 3:[address] Scan at [place] [phone] Arturo Cordreo MD [facility] HEMATOLOGY [place] [address] 01/30/2025 4:15 PM EDT Office Visit [place] [phone] Arturo Cordero MD [facility] [place] [address] Scheduled Procedures Name Priority Associated Diagnoses Date/Ti me EGD, UPPER GI ENDOSCOPY (WRV U 2.09) Irritable bowel syndrome with constipation COLONOSCOPY, DIAGNOSTIC (WRV U 3.26) Irritable bowel syndrome with constipation documented as of this encounter Visit Diagnoses Not on filedocumented in this encounter Care Teams Bowling Ball Grader Relationship Specialty Start Date End Date Luis E Narayan MD [facility] DR LILI [place] [address] PCP - General Family Medicine 01/20/22 07/17/22 documented as of this encounter
--- OUTSIDE RECORDS SUMMARY | 2024-06-07 13:34 | XMS_ITS | Encounter Summary ---
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 Indications: diabetes mellitus 1 each 10/26/2021 01/23/2023 FreeStyle Sanjana 2 Sensor KitIndications:diabete s mellitus 1 each by Other route every 14 days. Indications: diabetes mellitus 2 kit 10/26/2021 01/23/2023 fluticasone propionate (Flonase) 50 mcg/actuation [place], Suspension 1 spray by Each Nare route [...] EST Office Visit Internal Medicine at [address] [address] Daryn Garrett MD [facility] DR LILI WALKER [place] [address] 10/02/2024 1:00 PM EDT Office [place] [phone] Juanpablo Hernandez MD [facility] [place] [address] 01/30/2025 1:30 PM EDT Laboratory Appointment Lab at [facility] Hematology Oncology [address] [place] [phone] 01/30/2025 3:[address] [place] [phone] Arturo Cordero MD [facility] HEMATOLOGY [place] [address] 01/30/2025 4:15 PM EDT Office Visit [place] [address] Arturo Cordero MD [facility] [place] [address] Scheduled Procedures Name Priority Associated Diagnoses Date/Ti co EGD, UPPER GI ENDOSCOPY (WRV U 2.09) [...] 11:47 AM EST) Neutrophil % 68.2 % [facility] Neutrophil Absolute 6.07 1.70 - 6.10 x10(3)/[facility] Lymph % 23.1 % [facility] Lymphocytes Abs 2.1 0.9 - 3.2 x10(3)/[facility] Monocyte % 6.6 % [facility] Monocyte Abs 0.6 0.3 - 0.9 x10(3)/[facility] Eos % 1.3 % [facility] Eosinophils Abs 0.1 0.0 - 0.4 x10(3)/[facility] Basophil % 0.4 % [facility] Baso Absolute 0.0 0.0 - 0.1 x10(3)/[facility] Immature Gran % 0.40 % [facility] Comment: Immature granulocytes(IG's)percentage and absolute count will include metamyelocytes, myelocytes, and promyelocytes. Blood smears from CBCs yielding IG's will be scanned manually for concordance. If this scan disagrees with the automated IG or if promyelocytes are noted, a manual differential will be performed. Immature Gran Absolute 0.04 0.00 - 0.04 x10(3)/mcL [facility] Blood 06/23/2022 11:4 7 AM EST 06/23/2022 11:51 AM EST Narrative Resulting Agency Comment Spec In Lab Leandra Lopes ESL PROFESSOR HEMATOLOGY ORDERAB LES Performing Organization Address City/[facility] Co de Phone Number [facility] [place] [address] * (ABNORMAL) Hemogram (06/23/2022 11:47 AM EST) White Blood Cell 8.9 4.0 - 9.5 x10(3)/mc L [facility] Red Blood Cell 4.60 4.00 - 5.21 x10(6)/mc L [facility] Hemoglobin 12.9 11.7 - 15.5 g/dL [facility] Hematocrit 39.0 35.7 - 45.8 % [facility] Mean Cell Volume 84.8 82.6 - 94.4 fL [facility] Mean Cell Hemoglobin 28.0 27.1 - 32.0 pg [facility] Mean Cell Hemoglobin Concentration 33.1 31.7 - 35.0 g/dL [facility] Platelet 368(H) 145 - 357 x10(3)/mc L [facility] RDW Standard Deviation 43.6 37.0 - 46.0 fL [facility] RDW coefficient of variation 14.0 11.5 - 14.1 % [facility] Mean Platelet Volume 9.0 7.6 - 12.9 fL [facility] NRBC% auto 0.0 % [facility] NRBC Absolute 0.000 0.000 - 0.000 x10(3)/mc L [facility] Blood 06/23/2022 11:4 7 AM EST 06/23/2022 11:51 AM EST Narrative Resulting Agency Comment Spec In Lab Leandra Lopes ESL PROFESSOR HEMATOLOGY ORDERAB LES Performing Organization Address City/[facility]/ZIP Co de Phone Number [facility] [place] [address] * (ABNORMAL) Comprehensive metabolic panel (non-fasting) (06/23/2022 11:47 AM EST) Glucose 274(H) 65 - 199 mg/dL [facility] Comment:Diabetes: >=200 mg/d L plus symptoms Blood Urea Nitrogen 12 8 - 18 mg/dL [facility] Creatinine 0.92 0.70 - 1.20 mg/dL [facility] Sodium 139 135 - 145 mmol/L [facility] Potassium 4.1 3.5 - 5.0 mmol/L [facility] Comment: Please note: ??Patients with WBC >100,000 may have falsely elevated Potassium levels. ??For accurate Potassium quantification in these patients send serum separator tube (gold top) for subsequent determinations. ??Contact the Clinical Chemistry Laboratory if there are any questions. Chloride 104 98 - 107 mmol/L [facility] Carbon Dioxide 25 22 - 31 mmol/L [facility] Anion Gap 10 5 - 15 mmol/L [facility] Calcium 9.6 8.5 - 10.5 mg/dL [facility] Protein, Total 7.0 6.1 - 8.0 g/dL [facility] Albumin 4.2 3.2 - 5.2 g/dL [facility] Aspartate Aminotransferase 16 0 - 30 unit/L [facility] Alanine Aminotransferase 27 0 - 30 unit/L [facility] Alkaline Phosphatase 113(H) 35 - 105 unit/L [facility] Bilirubin, Total 0.5 0.2 - 1.3 mg/dL [facility] Est Glomerular Filtration Rate 70 >=60 mL/min/1. 73 m?? [facility] Comment: This patient's estimated GFR [...] Lab Leandra Lopes APRN CHEMISTRY ORDERABL ES [facility] [place] [address] documented in this encounter Visit Diagnoses Diagnosis Ocular melanoma, left documented in this encounter Care Teams Train Starter Relationship Specialty Start Date End Date Luis E Narayan MD [facility] [address] [place] [address] PCP - General Family Medicine 01/20/22 07/17/22 documented as of this encounter
--- OUTSIDE RECORDS SUMMARY | 2024-06-07 13:34 | XMS_ITS | Encounter Summary ---
[place] [address] Care Team Providers Care Director Of Music Name Role Phone Luis E Narayan MD Primary Care Provider +1- [phone] Reason for Referral * Diagnostic Test (Routine) - Closed Specialty Diagnoses / Procedures Referred By oGnzalez kumari Referred To Contact Radiology Diagnoses Dyspepsia Nausea without vomiting Procedures NM Gastric Emptying Scan Alejandra Pop APRN [address] [place] [address] [place] [address] Referral ID Status Reason Start Date Expiration Date V isits Requested Visits Authorized [id number] Closed Specialty Service Requested 06/17/2022 12/17/2023 1 1 Encounter Details Date Type Department Care Team (Late st Contact Info) Description 06/17/2022 Orders [place] [phone] Alejandra Pop APRN [address] [place] [address] Dyspepsia; Nausea without vomiting Social [...] AM EST Office Visit Internal Medicine at [facility] [address] [place] [phone] Daryn Garrett MD [facility] [address] [place] [address] 10/02/2024 1:00 PM EDT Office Visit Ophthalmology at [place] [phone] Juanpablo Hernandez MD [facility] [place] [address] 01/30/2025 1:30 PM EDT Laboratory Appointment Lab at [facility] Hematology Oncology [address] [place] [phone] 01/30/2025 3:[address] Scan at [place] [phone] Arturo Cordero MD [facility] DR HEMATOLOGY [place] [address] 01/30/2025 4:15 PM EDT Office Visit [place] [phone] Arturo Cordero MD [facility] DR HEMATOLOGY [place] [address] Scheduled Procedures Name Priority Associated Diagnoses Date/Ti [...] who have questions please contact the health nursing care attendant that requested your imaging first. ? Electronically signed by: Brett Chapman MD, [facility] ([phone]), at 10/18/2022 3:12 PM Narrative 10/18/2022 3:12 [...] patients who have questions please contactthe health nursing care attendant that requested your imaging first. Alejandra Pop MEAT GRADER IMG NM ORDERABLE S documented in this encounter Visit Diagnoses Diagnosis Dyspepsia Dyspepsia and other specified disorders of function of stomach Nausea without vomiting Dyspepsia Dyspepsia and other specified disorders of function of stomach Nausea without vomiting documented in this encounter Care Teams Director Of Music Relationship Specialty Start Date End Date Luis E Narayan MD [facility] [address] [place] [address] PCP - General Family Medicine 01/20/22 07/17/22 documented as of this encounter
--- OUTSIDE RECORDS SUMMARY | 2024-06-07 13:34 | XMS_ITS | Encounter Summary ---
Author Organization [facility] [place] [address] Care Team Providers Care Car Rental Clerk Name Role Phone Luis E Narayan MD Primary Care Provider +1- [phone] Reason for Visit * Reason Onset Date Comments Results 05/23/2022 Encounter Details Date Type Department Care Team (Late st Contact Info) Description 05/23/2022 Telephone Hematology [place] [address] Tito Matta V [place] [facility] Hematology/[place] [address] Results Social History Tobacco Use Types Packs/Day [...] Telephone Encounter - Gudelia Mattas Selvin, [facility] - 05/23/2022 11:33 AM EST This test result was discussed with the patient by phone. A copy of the test results have been scanned in the medical record and sent to [facility]. A summary of the results is provided below. Please beadvised that [place] law requires that all health care workers respect the confidentiality ofthis information and not pass it along to other health care providers, insurance companies, or individuals without the written permission of the patient. The Familial Cancer Program welcomes any questions about these matters. Our phone number is: [phone]. On 05/13/2022 [facility] was seen for genetic counseling and subsequently underwent genetic testing for a hereditary predisposition to Renal/Ur. Following are the results of this test. Result: [email or web address]'s Renal/Urinary Tract Cancers Panel showed no mutation [...] [facility] had previously opted for reflex to [employer]'s Multi-Cancer Panel andthis additional testing is still [...] EST Office Visit Internal Medicine at [address] [phone] Daryn Garrett MD [facility] DR LILI [place] [address] 10/02/2024 1:00 PM EDT Office [place] [address] Juanpablo Hernandez MD [facility] [place] [address] 01/30/2025 1:30 PM EDT Laboratory Appointment Lab at [facility] [place] [place] Hematology Oncology [address] [place] [phone] 01/30/2025 3:[address] [place] [phone] Arturo Cordero MD [facility] DR [place] [address] 01/30/2025 4:15 PM EDT Office Visit Hematology [place] [address] Arturo Cordero MD [facility] DR [place] [address] Scheduled Procedures Name Priority Associated Diagnoses Date/Ti me EGD, UPPER GI ENDOSCOPY (WRV U 2.09) Irritable bowel syndrome with constipation COLONOSCOPY, DIAGNOSTIC (WRV U 3.26) Irritable bowel syndrome with constipation documented as of this encounter Visit Diagnoses Not on filedocumented in this encounter Care Teams Car Rental Clerk Relationship Specialty Start Date End Date Luis E Narayan MD [facility] DR LILI [place] [address] PCP - General Family Medicine 01/20/22 07/17/22 documented as of this encounter
--- OUTSIDE RECORDS SUMMARY | 2024-06-07 13:34 | XMS_ITS | Encounter Summary ---
Author Organization [facility] Address [facility] [place] [address] Care Team Providers Care Power Marketer Name Role Phone Luis E Narayan MD Primary Care Provider +1- [phone] Reason for Visit * Reason Onset Date Comments Medication Refill 05/17/2022 Encounter Details Date Type Department Care Team (Late st Contact Info) Description 05/17/2022 Refill Family Medicine at [facility] [address] [place] [address] Terry Love, MEDICAL CASE MANAGER [facility] DR LILI WALKER-FAMILY MEDICINE [place], [place] [phone] Social History Tobacco Use Types Packs/Day Years [...] AM EST Office Visit Internal Medicine at [facility] [address] [place] [address] Daryn Garrett MD [facility] DR LILI WALKER [place] [address] 10/02/2024 1:00 PM EDT Office [place] [phone] Juanpablo Hernandez MD [facility] [place] [address] 01/30/2025 1:30 PM EDT Laboratory Appointment Lab at [facility] Hematology Oncology [address] [place] [phone] 01/30/2025 3:[address] [place] [phone] Arturo Cordero MD [facility] HEMATOLOGY [place] [address] 01/30/2025 4:15 PM EDT Office Visit Hematology [place] [phone] Arturo Cordero MD [facility] DR HEMATOLOGY [place] [address] Scheduled Procedures Name Priority Associated Diagnoses Date/Ti me EGD, UPPER GI ENDOSCOPY (WRV U 2.09) Irritable bowel syndrome with constipation COLONOSCOPY, DIAGNOSTIC (WRV U 3.26) Irritable bowel syndrome with constipation documented as of this encounter Visit Diagnoses Not on filedocumented in this encounter Care Teams Power Marketer Relationship Specialty Start Date End Date Luis E Narayan MD [facility] [place] [address] PCP - General Family Medicine 01/20/22 07/17/22 documented as of this encounter
--- OUTSIDE RECORDS SUMMARY | 2024-06-07 13:34 | XMS_ITS | Encounter Summary ---
Author Organization [facility] [place] [address] Care Team Providers Care Steward Dishwasher Name Role Phone Luis E Narayan MD Primary Care Provider +1 [phone] Encounter Details Date Type Department Care Team [...] AM EST Office Visit Internal Medicine at [place] [address] [place] [address] Daryn Garrett MD [facility] DR LILI [place] [address] 10/02/2024 1:00 PM EDT Office [place] [phone] Juanpablo Hernandez MD [facility] [place] [address] 01/30/2025 1:30 PM EDT Laboratory Appointment Lab at [facility] [place] On[place] [address] [place] [phone] 01/30/2025 3:[address] [place] [address] Arturo Cordero MD [facility] [place] [address] 01/30/2025 4:15 PM EDT Office Visit Hematology [place] [address] Arturo Cordero MD [facility] [place] [address] Scheduled Procedures Name Priority Associated Diagnoses Date/Ti me EGD, UPPER GI ENDOSCOPY (WRV U 2.09) Irritable bowel syndrome with constipation COLONOSCOPY, DIAGNOSTIC (WRV U 3.26) Irritable bowel syndrome with constipation documented as of this encounter Visit Diagnoses Not on filedocumented in this encounter Care Teams Steward Dishwasher Relationship Specialty Start Date End Date Luis E Narayan MD [facility] [address] [place] [address] PCP - General Family Medicine 01/20/22 07/17/22 documented as of this encounter
--- OUTSIDE RECORDS SUMMARY | 2024-06-07 13:34 | XMS_ITS | Encounter Summary ---
Author Organization [facility] Address [facility] [place] [address] Care Team Providers Care Chestnut Tanner Name Role Phone Luis E Narayan MD Primary Care Provider +1- [phone] Reason for Visit * Reason Comments Melanoma Encounter Details Date Type Department Care Team (Late st Contact Info) Description 06/01/2022 12:30 PM EST Office [place] [address] Juanpablo Hernandez MD [facility] [place] [address] Malignant melanoma of conjunctiva, left; Diabetic eye [...] AM EST Office Visit Internal Medicine at [facility] [address] [place] [address] Daryn Garrett MD [facility] DR LILI AZEVEDO [place] [address] 10/02/2024 1:00 PM EDT Office [place] [address] Juanpablo Hernandez MD [facility] [place] [address] 01/30/2025 1:30 PM EDT Laboratory Appointment Lab at [facility] [place] Hematology Oncology [address] [place] [phone] 01/30/2025 3:[address] Scan at [address] Arturo Cordero MD [facility] [place] [address] 01/30/2025 4:15 PM EDT Office Visit Hematology and Oncology at [place] [phone] Arturo Cordero MD [facility] DR HEMATOLOGY [place] [address] Scheduled Procedures Name Priority Associated Diagnoses Date/Ti me EGD, UPPER GI ENDOSCOPY (WRV U 2.09) Irritable bowel syndrome with constipation COLONOSCOPY, DIAGNOSTIC (WRV U 3.26) Irritable bowel syndrome with constipation documented as of this encounter Visit Diagnoses Diagnosis Malignant melanoma of conjunctiva, left Diabetic eye exam Examination of eyes and vision documented in this encounter Care Teams Chestnut Tanner Relationship Specialty Start Date End Date Luis E Narayan MD [facility] [address] [place] [address] PCP - General Family Medicine 01/20/22 07/17/22 documented as of this encounter
--- OUTSIDE RECORDS SUMMARY | 2024-06-07 13:34 | XMS_ITS | Encounter Summary ---
Author Organization [facility] Address [facility] [place] [address] Care Team Providers Care Instructor Hairspring Name Role Phone Luis E Narayan MD Primary Care Provider +1- [phone] Reason for Visit * Reason Onset Date Comments Medication Refill 04/21/2022 Encounter Details Date Type Department Care Team (Late st Contact Info) Description 04/21/2022 Refill Family Medicine at [facility] [address] [place] [address] Earl Valdez MD [facility] DR LILI AZEVED[place] [address] Social History Tobacco Use Types Packs/Day Years [...] Medicine at [facility] [address] [place] [address] Daryn Garrett MD [facility] [address] LIL[place] [address] 10/02/2024 1:00 PM EDT Office Visit Ophthalmology at [place] [phone] Juanpablo Hernandez MD [facility] [place] [address] 01/30/2025 1:30 PM EDT Laboratory Appointment Lab at [facility] Hematology Oncology [address] [place], [place] [phone] 01/30/2025 3:[address] Scan at [place] [phone] Arturo Cordero MD [facility] [place] [address] 01/30/2025 4:15 PM EDT Office Visit [place]ology [place] [address] Arturo Cordero MD [facility] DR HEMATOLOGY [place] [address] Scheduled Procedures Name Priority Associated Diagnoses Date/Ti me EGD, UPPER GI ENDOSCOPY (WRV U 2.09) Irritable bowel syndrome with constipation COLONOSCOPY, DIAGNOSTIC (WRV U 3.26) Irritable bowel syndrome with constipation documented as of this encounter Visit Diagnoses Not on filedocumented in this encounter Care Teams Instructor Hairspring Relationship Specialty Start Date End Date Luis E Narayan MD [facility] DR LILI [place] [address] PCP - General Family Medicine 01/20/22 07/17/22 documented as of this encounter
--- OUTSIDE RECORDS SUMMARY | 2024-06-07 13:34 | XMS_ITS | Encounter Summary ---
Author Organization [facility] Address [facility] [place] [address] Care Team Providers Care Courtesy Driver Name Role Phone Luis E Narayan MD Primary Care Provider +1- [phone] Reason for Visit * Reason Onset Date Comments Medication Refill 04/26/2022 Encounter Details Date Type Department Care Team (Late st Contact Info) Description 04/26/2022 Refill Family Medicine at [facility] [address] [place] [address] Luis E Narayan MD [facility] DR LILI [place] [address] Social History Tobacco Use Types Packs/Day Years [...] Medicine at [facility] [address] [place] [phone] Daryn Garrett MD [facility] DR LILI [place] [address] 10/02/2024 1:00 PM EDT [place] [phone] Juanpablo Hernandez MD [facility] [address] 01/30/2025 1:30 PM EDT Laboratory Appointment Lab at [facility] Hematology Oncology [address] [place], [place] [phone] 01/30/2025 3:[address] Scan at [place] [phone] Arturo Cordero MD [facility] [place] [address] 01/30/2025 4:15 PM EDT Office Visit Hematology and Oncology at [place] [phone] Arturo Cordero MD [facility] DR [place] [address] Scheduled Procedures Name Priority Associated Diagnoses Date/Ti me EGD, UPPER GI ENDOSCOPY (WRV U 2.09) Irritable bowel syndrome with constipation COLONOSCOPY, DIAGNOSTIC (WRV U 3.26) Irritable bowel syndrome with constipation documented as of this encounter Visit Diagnoses Not on filedocumented in this encounter Care Teams Courtesy Driver Relationship Specialty Start Date End Date Luis E Narayan MD [facility] DR LILI [place] [address] PCP - General Family Medicine 01/20/22 07/17/22 documented as of this encounter
--- OUTSIDE RECORDS SUMMARY | 2024-06-07 13:35 | XMS_ITS | Encounter Summary ---
Author Organization [facility] [place] [address] Care Team Providers Care Cookee Name Role Phone Luis E Narayan MD Primary Care Provider +1- [phone] Encounter Details Date Type Department Care Team (Late st Contact Info) Description 03/25/2022 Telephone Hematology [place] [address] Dar Fernandez MD [facility] DR HEMATOLOGY/[place] [address] Social History Tobacco Use Types Packs/Day Years [...] scheduled for next week. Dar Fernandez MD mining manager in Hematology-Oncology documented in this encounter Plan of Treatment Upcoming Encounters Date Type Department Care Team (Late st Contact Info) Description 06/28/2024 9:30 AM EST Office Visit Internal Medicine at [facility] [address] [place] [phone] Daryn Garrett MD [facility] DR LILI [place] [address] 10/02/2024 1:00 PM EDT Office [place] [phone] Juanpablo Hernandez MD [facility] [place] [address] 01/30/2025 1:30 PM EDT Laboratory Appointment Lab at [facility] [place] Hematology Oncology [address] [place] [employer], [place] [phone] 01/30/2025 3:[address] Scan at [place] [phone] Arturo Cordero MD [facility] [place] [address] 01/30/2025 4:15 PM EDT Office Visit [place]ology [place] [phone] Arturo Cordero MD [facility] DR [place] [address] Scheduled Procedures Name Priority Associated Diagnoses Date/Ti me EGD, UPPER GI ENDOSCOPY (WRV U 2.09) Irritable bowel syndrome with constipation COLONOSCOPY, DIAGNOSTIC (WRV U 3.26) Irritable bowel syndrome with constipation documented as of this encounter Visit Diagnoses Not on filedocumented in this encounter Care Teams Cookee Relationship Specialty Start Date End Date Luis E Narayan MD [facility] DR LILI [place] [address] PCP - General Family Medicine 01/20/22 07/17/22 documented as of this encounter
--- OUTSIDE RECORDS SUMMARY | 2024-06-07 13:35 | XMS_ITS | Encounter Summary ---
Author Organization [facility] Address [facility] [place] [address] Care Team Providers Care Geologist Name Role Phone Luis E Narayan MD Primary Care Provider +1- [phone] Reason for Visit * Reason Comments Follow-up f/u from hospital vi sit Encounter Details Date Type Department Care Team (Late st Contact Info) Description 04/05/2022 11:30 AM EDT Office Visit Family Medicine at [facility] [address] [place] [address] Earl Valdez MD [facility] DR LIL[place] [address] Frequency of micturition; COPD; Yeast vaginitis Social [...] emergency room visits near her home in [facility]. On 03/28, she was prescribed Augmentin and [...] Diagnosis Code ??? 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 Altered [...] each, Rfl: 11 ??? FreeStyle Sanjana 2 [place] Misc, 1 each by Other route daily. [...] 11 ??? fluticasone propionate (Flonase) 50 mcg/actuation [place], Suspension, 1 spray by Each Nare route2 [...] will send a prescription for this to [facility] in [facility]. She will continue on these current [...] a total of at least 30 minutes ([id number]) providing this patient's care. This includes time spent [id number] with the patient performing evaluation, examination, and counseling . It also includes non [id number] time preparing to see the patient, coordinating care, and documenting clinical information in the electronic health record. documented in this encounter Plan of Treatment Upcoming Encounters Date Type Department Care Team (Late st Contact Info) Description 06/28/2024 9:30 AM EST Office Visit Internal Medicine at [facility] [address] [place] [address] Daryn Garrett MD [facility] DR LILI [place] [address] 10/02/2024 1:00 PM EDT Office [place] [phone] Juanpablo Hernandez MD [facility] [place] [address] 01/30/2025 1:30 PM EDT Laboratory Appointment Lab at [facility] [place] Hematology Oncology [address] [place] [phone] 01/30/2025 3:[address] [place] [phone] Arturo Cordero MD [facility] DR [place] [address] 01/30/2025 4:15 PM EDT Office Visit [place]ology [place] [phone] Arturo Cordero MD [facility] DR [place] [address] Scheduled Procedures Name Priority Associated Diagnoses Date/Ti [...] coli 1,000-9,000 cfu/ml mixed mucosal nimisha (A) [facility] Organism Escherichia coli(A) [facility] Urine NS 04/05/2022 12:4 [...] Valdez MD MICROBIOLOGY - GENER AL ORDERABLES [facility] [place] [address] * (ABNORMAL) Urinalysis Microscopic Exam (04/05/2022 12:41 PM EDT) RBC, Urine 3 0 - 4 /HPF [facility] WBC, Urine 10(H) 0 - 5 /HPF [facility] Bacteria, Urine Rare(A) None /HPF [facility] Squamous Epithelial Cells Raw Data, Urine 2 <=4 /HPF [facility] Urine NS 04/05/2022 12:4 1 PM EDT 04/05/2022 4:36 PM EDT Narrative Resulting Agency Comment Spec In Lab Earl Valdez MD URINE ORDERABLES Performing Organization Address City/[facility]/ZIP Co de Phone Number [facility] [place] [address] * (ABNORMAL) Urinalysis with reflex Culture (04/05/2022 12:41 PM EDT) Glucose, Urine Dipstick 100(A) Negative mg/dL [facility] Protein, Urine Dipstick Negative Negative mg/dL [facility] Bilirubin, Urine Dipstick Negative Negative mg/dL [facility] Comment: Clinical correlation required for positive Urine Bilirubin results as false positive may occur with some drugs and drug related products. If a false positive is suspected a serum total bilirubin should be considered if clinically indicated. Urobilinogen, Urine Dipstick Normal Normal mg/dL [facility] pH, Urn (dipstick) 5.5 5.0 - 8.0 [facility] Blood, Urine Dipstick Negative Negative mg/dL [facility] Ketone, Urine Dipstick Negative Negative mg/dL [facility] Nitrite, Urine Dipstick Negative Negative [facility] Leukocytes, Urine Dipstick Moderate(A) Negative [facility] Appearance, Urine Dipstick Clear Clear [facility] Specific Taylor Urine Automated 1.011 1.005 - 1.030 [facility] Color, Urine Dipstick Yellow Yellow [facility] Reflex to Culture Yes [facility] Urine NS 04/05/2022 12:4 1 PM EDT 04/05/2022 4:36 PM EDT Narrative Resulting Agency Comment Spec In Lab Earl Valdez MD URINE ORDERABLES [facility] [place] [address] documented in this encounter Visit Diagnoses Diagnosis Frequency of micturition Urinary frequency COPD Simple chronic bronchitis Yeast vaginitis Candidiasis of vulva and vagina documented in this encounter Care Teams Geologist Relationship Specialty Start Date End Date Luis E Narayan MD [facility] DR LILI [place] [address] PCP - General Family Medicine 01/20/22 07/17/22 documented as of this encounter
--- OUTSIDE RECORDS SUMMARY | 2024-06-07 13:35 | XMS_ITS | Encounter Summary ---
Author Organization [facility] [place] [address] Care Team Providers Care Pipe Inspector Name Role Phone Luis E Narayan MD Primary Care Provider +1- [phone] Encounter Details Date Type Department Care Team (Latest Contact Info) Description 12/23/2021 12:35 PM EDT - 12/23/2021 11:59 PM EDT Hospital Encounter Hematology [place] [address] Malignant melanoma of conjunctiva, left Discharge Disposition: [...] 1 each 12/10/2021 02/04/2023 FreeStyle Sanjana 2 [place] MiscIndications:diabetes mellitus 1 each by Other route [...] 10/01/2021 01/29/2022 fluticasone propionate (Flonase) 50 mcg/actuation [place], Suspension 1 spray by Each Nare route [...] AM EST Office Visit Internal Medicine at [address] [phone] Daryn Garrett MD [facility] DR LILI [place]ER [place] [address] 10/02/2024 1:00 PM EDT Office Visit [place] [phone] Juanpablo Hernandez MD [facility] [place] [address] 01/30/2025 1:30 PM EDT Laboratory Appointment Lab at [facility] Hematology Oncology [address] [place] [phone] 01/30/2025 3:[address] [place] [phone] Arturo Cordero MD [facility] DR HEMATOLOGY [place] [address] 01/30/2025 4:15 PM EDT Office Visit Hematology and Oncology at [place] [address] Arturo Cordero MD [facility] DR HEMATOLOGY [place] [address] Scheduled Procedures Name Priority Associated Diagnoses Date/Ti [...] 12:45 PM EDT) Neutrophil % 62.7 % [facility] Neutrophil Absolute 4.80 1.70 - 6.10 x10(3)/[facility] Lymph % 27.4 % [facility] Lymphocytes Abs 2.1 0.9 - 3.2 x10(3)/[facility] Monocyte % 6.9 % [facility] Monocyte Abs 0.5 0.3 - 0.9 x10(3)/[facility] Eos % 1.7 % [facility] Eosinophils Abs 0.1 0.0 - 0.4 x10(3)/[facility] Basophil % 0.8 % [facility] Baso Absolute 0.1 0.0 - 0.1 x10(3)/[facility] Immature Gran % 0.50 % [facility] Comment: Immature granulocytes(IG's)percentage and absolute count will include metamyelocytes, myelocytes, and promyelocytes. Blood smears from CBCs yielding IG's will be scanned manually for concordance. If this scan disagrees with the automated IG or if promyelocytes are noted, a manual differential will be performed. Immature Gran Absolute 0.04 0.00 - 0.04 x10(3)/[facility] Blood 12/23/2021 12:4 5 PM EDT 12/23/2021 1:04 PM EDT Narrative Resulting Agency Comment Spec In Lab Leandra Lopes PNEUMATIC TUBE REPAIRER HEMATOLOGY ORDERAB LES [facility] [place] [address] * (ABNORMAL) Hemogram (12/23/2021 12:45 PM EDT) White Blood Cell 7.7 4.0 - 9.5 x10(3)/mc L [facility] Red Blood Cell 4.53 4.00 - 5.21 x10(6)/mc L [facility] Hemoglobin 12.9 11.7 - 15.5 g/dL [facility] Hematocrit 39.6 35.7 - 45.8 % [facility] Mean Cell Volume 87.4 82.6 - 94.4 fL [facility] Mean Cell Hemoglobin 28.5 27.1 - 32.0 pg [facility] Mean Cell Hemoglobin Concentration 32.6 31.7 - 35.0 g/dL [facility] Platelet 387(H) 145 - 357 x10(3)/mc L [facility] RDW Standard Deviation 46.8(H) 37.0 - 46.0 fL [facility] RDW coefficient of variation 14.5(H) 11.5 - 14.1 % [facility] Mean Platelet Volume 9.6 7.6 - 12.9 fL [facility] NRBC% auto 0.0 % [facility] NRBC Absolute 0.000 0.000 - 0.000 x10(3)/mc L [facility] Blood 12/23/2021 12:4 5 PM EDT 12/23/2021 1:04 PM EDT Narrative Resulting Agency Comment Spec In Lab Leandra Lopes APRN HEMATOLOGY ORDERAB LES Performing Organization Address [facility]/ZIP Co de Phone Number [facility] [place] [address] * Lactate Dehydrogenase (12/23/2021 12:45 PM EDT) Lactate Dehydrogenase 219 110 - 220 unit/L [facility] Blood 12/23/2021 12:4 5 PM EDT 12/23/2021 1:04 PM EDT Narrative Resulting Agency Comment Spec In Lab Leandra Lopes APRN CHEMISTRY ORDERABL ES Performing Organization Address [facility]/ZIP Co de Phone Number [facility] [place] [address] * (ABNORMAL) Comprehensive metabolic panel (non-fasting) (12/23/2021 12:45 PM EDT) Glucose 190 65 - 199 mg/dL [facility] Comment:Diabetes: >=200 mg/d L plus symptoms Blood Urea Nitrogen 13 8 - 18 mg/dL [facility] Creatinine 0.88 0.70 - 1.20 mg/dL [facility] Sodium 139 135 - 145 mmol/L [facility] Potassium 4.4 3.5 - 5.0 mmol/L [facility] Comment: Please note: ??Patients with WBC >100,000 may have falsely elevated Potassium levels. ??For accurate Potassium quantification in these patients send serum separator tube (gold top) for subsequent determinations. ??Contact the Clinical Chemistry Laboratory if there are any questions. Chloride 104 98 - 107 mmol/L [facility] Carbon Dioxide 25 22 - 31 mmol/L [facility] Anion Gap 10 5 - 15 mmol/L [facility] Calcium 9.5 8.5 - 10.5 mg/dL [facility] Protein, Total 6.7 6.1 - 8.0 g/dL [facility] Albumin 4.1 3.2 - 5.2 g/dL [facility] Aspartate Aminotransferase 29 0 - 30 unit/L [facility] Alanine Aminotransferase 35(H) 0 - 30 unit/L [facility] Alkaline Phosphatase 93 35 - 105 unit/L [facility] Bilirubin, Total 0.4 0.2 - 1.3 mg/dL [facility] Est Glomerular Filtration Rate 74 >=60 mL/min/1. 73 m?? [facility] Comment: This patient's estimated [...] Lab Leandra Lopes APRN CHEMISTRY ORDERABL ES [facility] [place] [address] documented in this encounter Visit Diagnoses Diagnosis Malignant melanoma of conjunctiva, left documented in this encounter Care Teams Pipe Inspector Relationship Specialty Start Date End Date Luis E Narayan MD [facility] DR LILI WALK[place] [address] PCP - General Family Medicine 03/26/19 01/19/22 documented as of this encounter
--- OUTSIDE RECORDS SUMMARY | 2024-06-07 13:35 | XMS_ITS | Encounter Summary ---
Author Organization [facility] [place] [address] Care Team Providers Care Platform Beater Name Role Phone Luis E Narayan MD Primary Care Provider Encounter Details Date Type Department Care Team (Late st Contact Info) Description 03/21/2022 1:09 PM EDT - 03/21/2022 11:59 PM EDT Hospital En[place] [address] Leandra Black, DENTAL CHAIRSIDE ASSISTANT [facility] DR [place] [address] Malignant melanoma of conjunctiva, left Discharge Disposition: [...] 1 each 12/10/2021 02/04/2023 FreeStyle Sanjana 2 [place] MiscIndications:diabetes mellitus 1 each by Other route daily. Indications: diabetes mellitus 1 each 10/26/2021 01/23/2023 FreeStyle Sanjana 2 Sensor KitIndications:diabetes mellitus 1 each by Other route every 14 days. Indications: diabetes mellitus 2 kit 10/26/2021 01/23/2023 FreeStyle Lancets 28 gauge MiscIndications:diabetes mellitus 1 each by Other route 3 times daily. Indications: diabetes mellitus 100 each 11 10/11/2021 06/16/2022 fluticasone propionate (Flonase) 50 mcg/actuation [place], Suspension 1 spray by Each Nare route [...] AM EST Office Visit Internal Medicine at [address] [phone] Daryn Garrett MD [facility] DR LILI [place] [address] 10/02/2024 1:00 PM EDT Office [place] [phone] Juanpablo Hernandez MD [facility] [place] [address] 01/30/2025 1:30 PM EDT Laboratory Appointment Lab at [facility] Hematology Oncology [address] [place] [phone] 01/30/2025 3:[address] [place] [address] Arturo Cordero MD [facility] DR [place] [address] 01/30/2025 4:15 PM EDT Office Visit Hematology [place] [address] Arturo Cordero MD [facility] DR [place] [address] Scheduled Procedures Name Priority Associated Diagnoses Date/Ti [...] Roland Izaguirre MD at 03/21/2022 1:56 PM Thank you for letting us participate in the care of this patient. If you are a health care provider and have any questions regarding this report, please contact the number above. For patients who have questions, please contact the health workforce investment act career manager that requested your imaging first. ? Roland Izaguirre, Staff Physician Electronically Signed Final Report ?? 03/21/2022 02:04 pm Narrative 03/21/2022 2:05 PM EDT Ultrasound Lymph Node ? (Signed Final 03/21/2022 02:04 pm) Report PATIENT INFO: ID #: ? [id number] ?: ??58 (61 yrs)(F) Name: ? PATIENCE MANJARREZ ? Visit Date: 03/21/2022 01:33 pm PERFORMED BY: Performed By: ? Stephany Pittman RDMS Attending: ?Dmitriy COLVIN, Roland Fung Resident: ? Rojelio COLVIN, Gia Davalos Referred By: ?LEANDRA LBACK Location: ? [place] SERVICE(S) PROVIDED: USTN - Soft Tissue Neck or Head - [id number] ? [id number] INDICATIONS: History of left eye conjunctival melanoma s/p resection, [facility] of left neck [place] --------- FINDINGS: --------- Title: ? Ultrasound Lymph Node Report Findings: ?Several visualized lymph nodes, largest measures ?1.6 cm left level 2. Procedure Note Roland Izaguirre MD - 03/21/2022 Ultrasound Lymph Node (Signed Final 03/21/2022 02:04 pm) Report PATIENT INFO: ID #: [id number] : 58 (61 yrs)(F) Name: PATIENCE MANJARREZ Visit Date: 03/21/2022 01:33 pm PERFORMED BY: Performed By: Stephany Pittman RDMS Attending: Dmitriy COLVIN, Roland Fung Resident: Rojelio COLVIN, Gia Davalos Referred By: LEANDRA BLACK Location: [place] SERVICE(S) PROVIDED: USTN - Soft Tissue Neck or Head - [id number] INDICATIONS: History of left eye conjunctival melanoma [...] Roland Izaguirre MD at 03/21/2022 1:56 PM Thank you for letting us participate in the care of this patient. If you are a health care provider and have any questions regarding this report, please contact the number above. For patients who have questions, please contact the health workforce investment act career manager that requested your imaging first. Roland Izaguirre, Staff Physician Electronically Signed Final Report 03/21/2022 02:04 pm Leandra Black APRN IMG US GEN ORDERAB LES documented in this encounter Visit Diagnoses Diagnosis Malignant melanoma of conjunctiva, left documented in this encounter Care Teams Platform Beater Relationship Specialty Start Date End Date Luis E Narayan MD [facility] [address] [place] [address] PCP - General Family Medicine 01/20/22 07/17/22 documented as of this encounter
--- OUTSIDE RECORDS SUMMARY | 2024-06-07 13:35 | XMS_ITS | Encounter Summary ---
Author Organization [facility] Address [facility] [place] [address] Care Team Providers Care Assembler Tubing Name Role Phone Luis E Narayan MD Primary Care Provider +1- [phone] Reason for Visit * Reason Onset Date Comments Other 04/14/2022 Encounter Details Date Type Department Care Team (Late st Contact Info) Description 04/14/2022 Telephone Family Medicine at [facility] [address] [place] [phone] Luis E Narayan MD [facility] [address] LILI [place] [address] Other Social History Tobacco Use Types Packs/Day [...] Identified by name and . Seen in [facility] ED last night and treated [...] Fax request for medical records sent to [facility] * Telephone Encounter - Angi King - 04/14/2022 4:42 PM EDT Please call patient to discuss Emergency Room Follow Up Reason for the Emergency Room visit: Lower left abdominal pain Name of the facility where patient was seen: [facility]. [address] [place], [place] [address]. Symptomatic now: yes Other information: Patient called reporting still positive for abdominal pain. Seen in emergency room . Diagnosis possible diverticulitis. Labs & CT done in emergency room. Patient requesting follow up appointment with Suzanne Martinez APRN on 04/19/22 after 10:40 appointment with another provider. Caller and Relationship (if other than patient): Alize Chelsea Gramajo Best time to call back: any Okay to leave a message: y Okay to send [facility] message: y Nurse contacted via: Message: X Call: n/a Pager: n/a documented in this encounter Plan of Treatment Upcoming Encounters Date Type Department Care Team (Late st Contact Info) Description 06/28/2024 9:30 AM EST Office Visit Internal Medicine at [address] [address] Daryn Garrett MD [facility] [address] [place] [address] 10/02/2024 1:00 PM EDT Office [place] [phone] Juanpablo Hernandez MD [facility] [place] [address] 01/30/2025 1:30 PM EDT Laboratory Appointment Lab at [facility] Hematology Oncology [address] [place] [phone] 01/30/2025 3:[address] [place] [phone] Arturo Cordero MD [facility] [place] [address] 01/30/2025 4:15 PM EDT Office Visit Hematology [place] [address] Arturo Cordero MD [facility] [place] [address] Scheduled Procedures Name Priority Associated Diagnoses Date/Ti me EGD, UPPER GI ENDOSCOPY (WRV U 2.09) Irritable bowel syndrome with constipation COLONOSCOPY, DIAGNOSTIC (WRV U 3.26) Irritable bowel syndrome with constipation documented as of this encounter Visit Diagnoses Not on filedocumented in this encounter Care Teams Assembler Tubing Relationship Specialty Start Date End Date Luis E Narayan MD [facility] [address] [place] [address] PCP - General Family Medicine 01/20/22 07/17/22 documented as of this encounter
--- OUTSIDE RECORDS SUMMARY | 2024-06-07 13:35 | XMS_ITS | Encounter Summary ---
Author Organization [facility] Address [facility] [place] [address] Care Team Providers Care Spa Attendant Name Role Phone Luis E Narayan MD Primary Care Provider +1- [phone] Reason for Visit * Reason Onset Date Comments Medication Refill 01/29/2022 Encounter Details Date Type Department Care Team (Late st Contact Info) Description 01/29/2022 Refill Family Medicine at [facility] [address] [place] [address] Luis E Narayan MD [facility] DR LILI [place] [address] Social History Tobacco Use Types Packs/Day Years [...] AM EST Office Visit Internal Medicine at [facility] [address] [place] [address] Daryn Garrett MD [facility] DR LILI AZEVEDO - [place] [address] 10/02/2024 1:00 PM EDT Office Visit Ophthalmology at [place] [phone] Juanpablo Hernandez MD [facility] [place] [address] 01/30/2025 1:30 PM EDT Laboratory Appointment Lab at [facility] Hematology Oncology [address] [place], [place] [phone] 01/30/2025 3:[address] Scan at [place] [phone] Arturo Cordero MD [facility] DR HEMATOLOGY [place] [address] 01/30/2025 4:15 PM EDT Office Visit H[place]ology [place] [phone] Arturo Cordero MD [facility] DR [place] [address] Scheduled Procedures Name Priority Associated Diagnoses Date/Ti me EGD, UPPER GI ENDOSCOPY (WRV U 2.09) Irritable bowel syndrome with constipation COLONOSCOPY, DIAGNOSTIC (WRV U 3.26) Irritable bowel syndrome with constipation documented as of this encounter Visit Diagnoses Not on filedocumented in this encounter Care Teams Spa Attendant Relationship Specialty Start Date End Date Luis E Narayan MD [facility] DR LILI AZEVEDO-[place] [address] PCP - General Family Medicine 01/20/22 07/17/22 documented as of this encounter
--- OUTSIDE RECORDS SUMMARY | 2024-06-07 13:35 | XMS_ITS | Encounter Summary ---
Author Organization [facility] Address [facility] [place] [address] Care Team Providers Care Dress Fitter Name Role Phone Luis E Narayan MD Primary Care Provider Reason for Visit * Reason Comments Melanoma OS Encounter Details Date Type Department Care Team (Late st Contact Info) Description 02/04/2022 3:30 PM EDT Office [place] [address] Juanpablo Hernandez MD [facility] [place] [address] Malignant melanoma of conjunctiva, left Social History [...] AM EST Office Visit Internal Medicine at [place] [address] [place] [address] Daryn Garrett MD [facility] [address] [place] [address] 10/02/2024 1:00 PM EDT Office [place] [address] Juanpablo Hernandez MD [facility] [place] [address] 01/30/2025 1:30 PM EDT Laboratory Appointment Lab at [facility] Hematology Oncology [address] [place] [phone] 01/30/2025 3:[address] Scan at [place] [phone] Arturo Cordero MD [facility] [place] [address] 01/30/2025 4:15 PM EDT Office Visit Hematology [place] [phone] Arturo Cordero MD [facility] [place] [address] Scheduled Procedures Name Priority Associated Diagnoses Date/Ti me EGD, UPPER GI ENDOSCOPY (WRV U 2.09) Irritable bowel syndrome with constipation COLONOSCOPY, DIAGNOSTIC (WRV U 3.26) Irritable bowel syndrome with constipation documented as of this encounter Visit Diagnoses Diagnosis Malignant melanoma of conjunctiva, left documented in this encounter Care Teams Dress Fitter Relationship Specialty Start Date End Date Luis E Narayan MD [facility] [address] [place] [address] PCP - General Family Medicine 01/20/22 07/17/22 documented as of this encounter
--- OUTSIDE RECORDS SUMMARY | 2024-06-07 13:35 | XMS_ITS | Encounter Summary ---
Author Organization [facility] [place] [address] Care Team Providers Care Casing Crew Pusher Name Role Phone Luis E Narayan MD Primary Care Provider +1- [phone] Encounter Details Date Type Department Care Team (Latest Contact Info) Description 03/07/2022 2:01 PM EDT - 03/07/2022 11:59 PM EDT Hospital [place] [address] Bloating; Dyspepsia Discharge Disposition: Home Social History [...] each 11 12/10/2021 02/04/2023 FreeStyle Sanjana 2 [place] MiscIndications:diabetes mellitus 1 each by Other route daily. Indications: diabetes mellitus 1 each 10/26/2021 01/23/2023 FreeStyle Sanjana 2 Sensor KitIndications:diabetes mellitus 1 each by Other route every 14 days. Indications: diabetes mellitus 2 kit 10/26/2021 01/23/2023 FreeStyle Lancets 28 gauge MiscIndications:diabetes mellitus 1 each by Other route 3 times daily. Indications: diabetes mellitus 100 each 11 10/11/2021 06/16/2022 fluticasone propionate (Flonase) 50 mcg/actuation [place], Suspension 1 spray by Each Nare route [...] AM EST Office Visit Internal Medicine at [address] [phone] Daryn Garrett MD [facility] DR [place] [address] 10/02/2024 1:00 PM EDT Office [place] [phone] Juanpablo Hernandez MD [facility] [place] [address] 01/30/2025 1:30 PM EDT Laboratory Appointment Lab at [facility] Hematology Oncology [address] [place] [phone] 01/30/2025 3:[address] [place] [phone] Arturo Cordero MD [facility] [place] [address] 01/30/2025 4:15 PM EDT Office Visit Hematology [place] [address] Arturo Cordero MD [facility] [place] [address] Scheduled Procedures Name Priority Associated Diagnoses Date/Ti [...] Agency Comment Spec In Lab Alejandra Pop HIGH [employer]CHOOL SCIENCE TEACHER MICROBIOLOGY - G ENERAL ORDERABLES [facility] [place] [address] * Campylobacter Antigen (03/07/2022 11:20 AM EDT) Campylobacter Ag Immunoassay Negative for Campylobacter Antigen [facility] Stool 03/07/2022 11:2 0 AM EDT 03/07/2022 2:22 PM EDT Narrative Resulting Agency Comment Spec In Lab Alejandra Pop APRN MICROBIOLOGY - G ENERAL ORDERABLES Performing Organization Address [facility] Co de Phone Number [facility] [place] [address] * Stool culture (03/07/2022 11:20 AM EDT) Stool Culture No enteric pathogens isolated [facility] Stool 03/07/2022 11:2 0 AM EDT 03/07/2022 2:22 PM EDT Narrative Resulting Agency Comment Spec In Lab Alejandra Pop APRN MICROBIOLOGY - G ENERAL ORDERABLES Performing Organization Address [facility] de Phone Number [facility] [place] [address] documented in this encounter Visit Diagnoses Diagnosis Bloating Flatulence, eructation, and gas pain Dyspepsia Dyspepsia and other specified disorders of function of stomach documented in this encounter Care Teams Casing Crew Pusher Relationship Specialty Start Date End Date Luis E Narayan MD [facility] DR LILI [place] [address] PCP - General Family Medicine 01/20/22 07/17/22 documented as of this encounter
--- OUTSIDE RECORDS SUMMARY | 2024-06-07 13:35 | XMS_ITS | Encounter Summary ---
Author Organization [facility] [place] [address] Care Team Providers Care Food Processing Chemist Name Role Phone Luis E Narayan MD Primary Care Provider +1- [phone] Reason for Referral * Consultation (Routine) - Closed Specialty Diagnoses / Procedures Referred By Gonzalez kumari Referred To Contact Weight and Wellness Diagnoses Diarrhea, unspecified type Obesity, unspecified classification, unspecified obesity type, unspecified whether serious comorbidity present Kelsey Pacheco DO [address] [place] [address] [address] [place] [address] [facility] [address] [place] [address] Referral ID Status Reason Start Date Expiration Date V isits Requested Visits Authorized [id number] Closed Consult, Test & Treat PCP Updated and/or Approved 01/20/2022 01/20/2023 1 1 Encounter Details Date Type Department Care Team (Late st Contact Info) Description 01/20/2022 Transcribe Orders eDH Incoming Referrals [phone] Kelsey Pacheco DO [address] [place] [address] [address] [place], [place] [id number] Diarrhea, unspecified type; Obesity, unspecified classification, unspecified [...] AM EST Office Visit Internal Medicine at [facility] [address] [place] [address] Daryn Garrett MD [facility] DR LILI [place] [address] 10/02/2024 1:00 PM EDT [place] [address] Juanpablo Hernandez MD [facility] [place] [address] 01/30/2025 1:30 PM EDT Laboratory Appointment Lab at [facility] Hematology Oncology [address] [place] [address] 01/30/2025 3:[address] Scan at [place] [phone] Arturo Cordero MD [facility] DR [place] [address] 01/30/2025 4:15 PM EDT Office Visit Hematology and Oncology at [address] Arturo Cordero MD [facility] DR [place] [address] Scheduled Procedures Name Priority Associated Diagnoses Date/Ti [...] present documented in this encounter Care Teams Food Processing Chemist Relationship Specialty Start Date End Date Luis E Narayan MD [facility] [address] [place] [address] PCP - General Family Medicine 01/20/22 07/17/22 documented as of this encounter
--- OUTSIDE RECORDS SUMMARY | 2024-06-07 13:35 | XMS_ITS | Encounter Summary ---
Author Organization [facility] Address [facility] [place] [address] Care Team Providers Care Senior Trial Attorney Name Role Phone Daryn Garrett MD Primary Care Provider Reason for Visit * Reason Onset Date Comments Medication Refill 03/25/2022 Encounter Details Date Type Department Care Team (Late st Contact Info) Description 03/25/2022 Refill Family Medicine at [facility] [address] [place] [address] Luis E Narayan MD [facility] DR LILI [place] [address] Essential hypertension Social History Tobacco Use Types [...] AM EST Office Visit Internal Medicine at [facility] [address] [place] [address] Daryn Garrett MD [facility] DR LILI [place] [address] 10/02/2024 1:00 PM EDT Office [place] [phone] Juanpablo Hernandez MD [facility] [place] [address] 01/30/2025 1:30 PM EDT Laboratory Appointment Lab at [facility] [place] [address] [place] [phone] 01/30/2025 3:[address] [place] [address] Arturo Cordero MD [facility] [place] [address] 01/30/2025 4:15 PM EDT Office Visit Hematology [place] [address] Arturo Cordero MD [facility] DR [place] [address] Scheduled Procedures Name Priority Associated Diagnoses Date/Ti me EGD, UPPER GI ENDOSCOPY (WRV U 2.09) Irritable bowel syndrome with constipation COLONOSCOPY, DIAGNOSTIC (WRV U 3.26) Irritable bowel syndrome with constipation documented as of this encounter Visit Diagnoses Diagnosis Essential hypertension Unspecified essential hypertension documented in this encounter Care Teams Senior Trial Attorney Relationship Specialty Start Date End Date Daryn Garrett MD [facility] [address] [place] [address] PCP - General 04/10/24 documented as of this encounter
--- OUTSIDE RECORDS SUMMARY | 2024-06-07 13:35 | XMS_ITS | Encounter Summary ---
Author Organization [facility] Address [facility] [place] [address] Care Team Providers Care Batt Packer Name Role Phone Luis E Narayan MD Primary Care Provider +1- [phone] Reason for Visit * Reason Onset Date Comments Medication Refill 02/11/2022 Encounter Details Date Type Department Care Team (Late st Contact Info) Description 02/11/2022 Refill [address] Medicine at [facility] [address] [place] [phone] Luis E Narayan MD [facility] DR LILI [place] [address] Type 2 diabetes mellitus without long-term current [...] AM EST Office Visit Internal Medicine at [address] [phone] Daryn Garrett MD [facility] DR LILI [place] [address] 10/02/2024 1:00 PM EDT Office [place] [phone] Juanpablo Hernandez MD [facility] [place] [place] [address] 01/30/2025 1:30 PM EDT Laboratory Appointment Lab at [facility] Hematology Oncology [address] [place] [phone] 01/30/2025 3:[address] [place] [phone] Arturo Cordero MD [facility] [address] [place] [address] 01/30/2025 4:15 PM EDT Office Visit Hematology [place] [address] Arturo Cordero MD [facility] [place] [address] Scheduled Procedures Name Priority Associated Diagnoses Date/Ti me EGD, UPPER GI ENDOSCOPY (WRV U 2.09) Irritable bowel syndrome with constipation COLONOSCOPY, DIAGNOSTIC (WRV U 3.26) Irritable bowel syndrome with constipation documented as of this encounter Visit Diagnoses Diagnosis Type 2 diabetes mellitus without long-term current use of insulin documented in this encounter Care Teams Batt Packer Relationship Specialty Start Date End Date Luis E Narayan MD [facility] [address] [place] [address] PCP - General Family Medicine 01/20/22 07/17/22 documented as of this encounter
--- OUTSIDE RECORDS SUMMARY | 2024-06-07 13:35 | XMS_ITS | Encounter Summary ---
Author Organization [facility] Address [facility] [place] [address] Care Team Providers Care Caterers Helper Name Role Phone Luis E Narayan MD Primary Care Provider +1- [phone] Encounter Details Date Type Department Care Team (Late st Contact Info) Description 03/21/2022 Telephone Hematology [place] [address] Leandra Lopes, FOREST NURSERY SUPERVISOR [facility] HEMATOLOGY [place] [address] Social History Tobacco Use Types Packs/Day Years [...] new symptoms or concerns. Leandra Lopes DNP, FOREST NURSERY SUPERVISOR documented in this encounter Plan of Treatment Upcoming Encounters Date Type Department Care Team (Late st Contact Info) Description 06/28/2024 9:30 AM EST Office Visit Internal Medicine at [facility] [address] [place] [address] Daryn Garrett MD [facility] DR LILI [place]EVED[place] [address] 10/02/2024 1:00 PM EDT Office [place] [address] Juanpablo Hernandez MD [facility] [place] [address] 01/30/2025 1:30 PM EDT Laboratory Appointment Lab at [facility] Hematology Oncology [address] [place] [address] 01/30/2025 3:[address] [place] [address] Arturo Cordero MD [facility] [place] [address] 01/30/2025 4:15 PM EDT Office Visit Hematology and Oncology at [place] [phone] Arturo Cordero MD [facility] DR HEMATOLOGY [place] [address] Scheduled Procedures Name Priority Associated Diagnoses Date/Ti me EGD, UPPER GI ENDOSCOPY (WRV U 2.09) Irritable bowel syndrome with constipation COLONOSCOPY, DIAGNOSTIC (WRV U 3.26) Irritable bowel syndrome with constipation documented as of this encounter Visit Diagnoses Not on filedocumented in this encounter Care Teams Caterers Helper Relationship Specialty Start Date End Date Luis E Narayan MD [facility] [address] [place] [address] PCP - General Family Medicine 01/20/22 07/17/22 documented as of this encounter
--- OUTSIDE RECORDS SUMMARY | 2024-06-07 13:35 | XMS_ITS | Encounter Summary ---
Author Organization [facility] [place] [address] Care Team Providers Care Cable Coverer Name Role Phone Luis E Narayan MD Primary Care Provider +1- [phone] Reason for Referral * Psychiatric (Routine) - Closed Specialty Diagnoses / Procedures Referred By Gonzalez kumari Referred To Contact Psychiatry Diagnoses Chronic insomnia Asha Morataya MD [facility] [place] [address] Sadie Weinberg, PhD [facility] DR [place] [address] Referral ID Status Reason Start Date Expiration Date V isits Requested Visits Authorized [id number] Closed Specialty Service Requested 04/19/2022 04/19/2023 1 1 Encounter Details Date Type Department Care Team (Late st Contact Info) Description 04/19/2022 11:00 AM EDT Office Visit Sleep Center at [facility] [address] [place] [address] Asha Morataya MD [facility] [place] [address] Chronic insomnia; TITO (obstructive sleep apnea) Social [...] drive. If you get sleepy while driving char puller ,turn the car off and nap. You may resume driving once you feel alert. 12) Read No More Sleepless Nights by Mack Heaton PhD. 13) There are some on-line resources that do require a fee that can be of help. Two credible websites are as follows: http://www.Cubicl https://www.sleepio.com An star used by the [place] is as follows: CBT-I Artificial Breast Fabricator documented in this encounter Progress Notes * [...] no change in treatment ?? Re-evaluation in [facility] 05/09/19 On [...] would wake 6-6:30 am Questionnaires: Patient-reported scores: [facility] 04/13/2022 [facility] 5 (Low Risk) Insomnia Severity Index 9 (Subthreshold insomnia) [facility] 05/07/2019 05/09/2019 04/13/2022 [facility] 7 (Low Risk) 10 (High Risk) [...] Diagnosis Code ??? 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 Altered [...] 11 ??? fluticasone propionate (Flonase) 50 mcg/actuation [place], Suspension 1 spray by Each Nare route [...] Lite Meter Kit ??? FreeStyle Sanjana 2 Wise Misc 1 each by Other route daily. [...] unapproved cleaning methods (such as ozone generating photo machine operator). She is not aware of any black particles in the PAP circuit. Discussed that at this time, we believe that the benefit of CPAP likely outweighs the risk and that the online communications manager will replace or repair the machine - [...] counseling, chart review and documentation. Established patient: 74645: ___Total time including face to face, chart review and documentation of 20-29 min OR ___Low level of medical decision making (ie 1 stable (= at goal) chronic illnesses and low risk of morbidity) 28722: ___Total time including face to face, chart review and documentation of 30-39 min OR ___Moderate level of medical decision making (ie 1 chr illness with exac, progression or side effects of treatment or 2+ stable chronic illnesses and moderate risk of morbidity) 01737: _X__Total time including face to face, chart [...] Medicine at [facility] [address] [place] [address] Daryn Garrett MD [facility] DR LILI [place] [address] 10/02/2024 1:00 PM EDT Office [place] [address] Juanpablo Hernandez MD [facility] [place] [address] 01/30/2025 1:30 PM EDT Laboratory Appointment Lab at [facility] Hematology Oncology [address] [place] [phone] 01/30/2025 3:[address] [place] [phone] Arturo Cordero MD [facility] DR [place] [address] 01/30/2025 4:15 PM EDT Office Visit [place] [phone] Arturo Cordero MD [facility] DR [place] [address] Scheduled Procedures Name Priority Associated Diagnoses Date/Ti [...] (pediatric) documented in this encounter Care Teams Cable Coverer Relationship Specialty Start Date End Date Luis E Narayan MD [facility] [address] [place] [address] PCP - General Family Medicine 01/20/22 07/17/22 documented as of this encounter
--- OUTSIDE RECORDS SUMMARY | 2024-06-07 13:35 | XMS_ITS | Encounter Summary ---
Author Organization [facility] Address [facility] [place] [address] Care Team Providers Care Biodiesel Production Associate Name Role Phone Luis E Narayan MD Primary Care Provider [phone]- [phone] Reason for Visit * Reason Onset Date Comments Medication Refill 04/14/2022 Encounter Details Date Type Department Care Team (Late st Contact Info) Description 04/14/2022 Refill Family Medicine at [facility] [address] [place] [address] Cuate Solis PA [facility] DR LILI [place] [address] Social History Tobacco Use Types Packs/Day Years [...] AM EST Office Visit Internal Medicine at [facility] [address] [place] [address] Daryn Garrett MD [facility] DR LILI [place] [address] 10/02/2024 1:00 PM EDT Office [place] [phone] Juanpablo Hernandez MD [facility] [place] [address] 01/30/2025 1:30 PM EDT Laboratory Appointment Lab at [facility] Hematology Oncology [address] [place] [phone] 01/30/2025 3:[address] [place] [address] Arturo Cordero MD [facility] [place] [address] 01/30/2025 4:15 PM EDT Office Visit Hematology [place] [phone] Arturo Cordero MD [facility] DR [place] [address] Scheduled Procedures Name Priority Associated Diagnoses Date/Ti me EGD, UPPER GI ENDOSCOPY (WRV U 2.09) Irritable bowel syndrome with constipation COLONOSCOPY, DIAGNOSTIC (WRV U 3.26) Irritable bowel syndrome with constipation documented as of this encounter Visit Diagnoses Not on filedocumented in this encounter Care Teams Biodiesel Production Associate Relationship Specialty Start Date End Date Luis E Narayan MD [facility] DR LILI WALKER-FAM[place] [phone] PCP - General Family Medicine 01/20/22 07/17/22 documented as of this encounter
--- OUTSIDE RECORDS SUMMARY | 2024-06-07 13:35 | XMS_ITS | Encounter Summary ---
Author Organization [facility] Address [facility] [place] [address] Care Team Providers Care Equip Maint Eng Name Role Phone Luis E Narayan MD Primary Care Provider [phone]- [phone] Encounter Details Date Type Department Care Team (Late st Contact Info) Description 04/07/2022 Telephone Family Medicine at [facility] [address] [place] [phone] Earl Valdez MD [facility] [address] [place] [address] Social History Tobacco Use Types Packs/Day Years [...] AM EST Office Visit Internal Medicine at [facility] [address] [place] [phone] Daryn Garrett MD [facility] DR [place] [address] 10/02/2024 1:00 PM EDT Office [place] [phone] Juanpablo Hernandez MD [facility] [place] [address] 01/30/2025 1:30 PM EDT Laboratory Appointment Lab at [facility] Hematology Oncology [address] [place], [place] [phone] 01/30/2025 3:[address] Scan at [address] Arturo Cordero MD [facility] [place] [address] 01/30/2025 4:15 PM EDT Office Visit Hematology and Oncology at [place] [phone] Arturo Cordero MD [facility] DR [place] [address] Scheduled Procedures Name Priority Associated Diagnoses Date/Ti me EGD, UPPER GI ENDOSCOPY (WRV U 2.09) Irritable bowel syndrome with constipation COLONOSCOPY, DIAGNOSTIC (WRV U 3.26) Irritable bowel syndrome with constipation documented as of this encounter Visit Diagnoses Not on filedocumented in this encounter Care Teams Equip Maint Eng Relationship Specialty Start Date End Date Luis E Narayan MD [facility] DR LILI [place] [address] PCP - General Family Medicine 01/20/22 07/17/22 documented as of this encounter
--- OUTSIDE RECORDS SUMMARY | 2024-06-07 13:35 | XMS_ITS | Encounter Summary ---
Author Organization [facility] [place] [address] Care Team Providers Care Account Executive Healthcare Name Role Phone Luis E Narayan MD Primary Care Provider [phone] Reason for Referral * Consultation (Routine) - Closed Specialty Diagnoses / Procedures Referred By Gonzalez white Referred To Contact Hematology and Oncology Diagnoses History of malignant melanoma of eye Alonso Young MD [facility] [address] [place] [address] [facility] Hem Onc [address] [place] [address] Referral ID Status Reason Start Date Expiration Date V isits Requested Visits Authorized [id number] Closed Consult, Test & Treat 02/14/2022 02/14/2023 1 1 Reason for Visit * Consultation (Routine) - Closed Specialty Diagnoses / Procedures Referred By Contchrissy white Referred To Contact Dermatology Diagnoses Malignant melanoma of conjunctiva, left Givens, Shane White MD [facility] [place] [address] [facility] [address] [place] [address] Referral ID Status Reason Start Date Expiration Date V isits Requested Visits Authorized [id number] Closed Consult, Test & Treat 11/17/2021 11/17/2022 1 1 Encounter Details Date Type Department Care Team (Late st Contact Info) Description 02/14/2022 10:00 AM EDT Office Visit Dermatology at [facility] [address] [place] [address] Alonso Young MD [facility] [address] [place] [address] History of malignant melanoma of eye; Seborrheic [...] on the trunk and extremities, including R congregational - Benign. No treatment needed. #. Solar [...] Scribe attestation: Lavinia Bains and Sugey Rodriguez [facility] have performed the documentation for this encounter in the presence of and acting as a scribe for Alonso Young MD. I performed the above scribed service and agree with the accuracy of the documentation in this encounter. Reviewed and signed by: Alonso Young MD Dermatology [facility] Patient seen and evaluated with staff public works manager: Aris Taylor MD Dermatology [facility] * Aris Taylor MD - 02/14/2022 10:00 [...] EST Office Visit Internal Medicine at [address] [phone] Daryn Garrett MD [facility] DR [place] [address] 10/02/2024 1:00 PM EDT Office [place] [phone] Juanpablo Hernandez MD [facility] [place] [address] 01/30/2025 1:30 PM EDT Laboratory Appointment Lab at [facility] Hematology Oncology [address] [place] [phone] 01/30/2025 3:[address] [place] [address] Arturo Cordero MD [facility] [place] [address] 01/30/2025 4:15 PM EDT Office Visit Hematology [place] [address] Arturo Cordero MD [facility] [place] [address] Scheduled Procedures Name Priority Associated Diagnoses Date/Ti [...] acquired documented in this encounter Care Teams Account Executive Healthcare Relationship Specialty Start Date End Date Luis E Narayan MD [facility] [address] [place] [address] PCP - General Family Medicine 01/20/22 07/17/22 documented as of this encounter
--- OUTSIDE RECORDS SUMMARY | 2024-06-07 13:35 | XMS_ITS | Encounter Summary ---
Author Organization [facility] Address [facility] [place] [address] Care Team Providers Care Horse Show Manager Name Role Phone Daryn Garrett MD Primary Care Provider Reason for Visit * Reason Onset Date Comments Medication Refill 04/14/2022 Encounter Details Date Type Department Care Team (Late st Contact Info) Description 04/14/2022 Refill Family Medicine at [facility] [address] [place] [address] Luis E Narayan MD [facility] DR LILI WALKER[place] [address] Social History Tobacco Use Types Packs/Day Years [...] AM EST Office Visit Internal Medicine at [place] [address] [place] [address] Daryn Garrett MD [facility] DR LILI [place] [address] 10/02/2024 1:00 PM EDT Office [place] [phone] Juanpablo Hernandez MD [facility] [place] [address] 01/30/2025 1:30 PM EDT Laboratory Appointment Lab at [facility] [place] On[place] [address] [place] [phone] 01/30/2025 3:[address] [place] [address] Arturo Cordero MD [facility] DR HEMATOLOGY [place] [address] 01/30/2025 4:15 PM EDT Office Visit Hematology [place] [phone] Arturo Cordero MD [facility] DR HEMATOLOGY [place] [address] Scheduled Procedures Name Priority Associated Diagnoses Date/Ti me EGD, UPPER GI ENDOSCOPY (WRV U 2.09) Irritable bowel syndrome with constipation COLONOSCOPY, DIAGNOSTIC (WRV U 3.26) Irritable bowel syndrome with constipation documented as of this encounter Visit Diagnoses Not on filedocumented in this encounter Care Teams Horse Show Manager Relationship Specialty Start Date End Date Daryn Garrett MD [facility] [address] [place] [address] PCP - General 04/10/24 documented as of this encounter
--- OUTSIDE RECORDS SUMMARY | 2024-06-07 13:35 | XMS_ITS | Encounter Summary ---
Author Organization [facility] [place] [address] Care Team Providers Care Ammonia Nitrate Operator Name Role Phone Luis E Narayan MD Primary Care Provider [phone] Encounter Details Date Type Department Care Team (Latest Contact Info) Description 03/06/2022 2:02 PM EDT - 03/06/2022 11:59 PM EDT Hospital [place] [address] Bloating; Dyspepsia Discharge Disposition: Home Social History [...] each 11 12/10/2021 02/04/2023 FreeStyle Sanjana 2 [place] MiscIndications:diabetes mellitus 1 each by Other route daily. Indications: diabetes mellitus 1 each 10/26/2021 01/23/2023 FreeStyle Sanjana 2 Sensor KitIndications:diabetes mellitus 1 each by Other route every 14 days. Indications: diabetes mellitus 2 kit 10/26/2021 01/23/2023 FreeStyle Lancets 28 gauge MiscIndications:diabetes mellitus 1 each by Other route 3 times daily. Indications: diabetes mellitus 100 each 11 10/11/2021 06/16/2022 fluticasone propionate (Flonase) 50 mcg/actuation [place], Suspension 1 spray by Each Nare route [...] AM EST Office Visit Internal Medicine at [address] [address] Daryn Garrett MD [facility] DR LILI [place] [address] 10/02/2024 1:00 PM EDT Office [place] [phone] Juanpablo Hernandez MD [facility] [place] [address] 01/30/2025 1:30 PM EDT Laboratory Appointment Lab at [facility] Hematology Oncology [address] [place] [phone] 01/30/2025 3:[address] [place] [phone] Arturo Cordero MD [facility] [place]AT[place] [address] 01/30/2025 4:15 PM EDT Office Visit Hematology [place] [address] Arturo Cordero MD [facility] DR [place] [address] Scheduled Procedures Name Priority Associated Diagnoses Date/Ti me EGD, UPPER GI ENDOSCOPY (WRV U 2.09) Irritable bowel syndrome with constipation COLONOSCOPY, DIAGNOSTIC (WRV U 3.26) Irritable bowel syndrome with constipation documented as of this encounter Procedures Procedure Name Priority Date/Time Associated Diagnosis Comments CRYPTOSPORIDIUM OOCYST ANTIGEN ([facility]/CGP/APD) Routine 03/07/2022 9:37 AM EDT Bloating Dyspepsia HC GIARDIA ANTIGEN ELOY METHOD Routine 03/07/2022 9:37 AM EDT Bloating Dyspepsia GIARDIA ANTIGEN ([facility]/CGP/APD/NLH) Routine 03/07/2022 9:37 AM EDT Bloating Dyspepsia documented in this encounter Results * Cryptosporidium Oocyst Antigen ([facility]/CGP/APD) (03/07/2022 9:37 AM EDT) Cryptosporidium Antigen Negative Negative [facility] Stool 03/07/2022 9:37 AM EDT 03/07/2022 2:21 PM EDT Narrative Resulting Agency Comment Spec In Lab Alejandra Pop MANAGER MASSAGE DEPARTMENT MICROBIOLOGY - G ENERAL ORDERABLES [facility] [place] [address] * Giardia antigen ([facility]/CGP/APD/NLH) (03/07/2022 9:37 AM EDT) Giardia Antigen Negative Negative [facility] Comment:Examination for othe r intestinal parasites requires foreign travel history. Stool 03/07/2022 9:37 AM EDT 03/07/2022 2:21 PM EDT Narrative Resulting Agency Comment Spec In Lab Alejandra Sal Donn MANAGER MASSAGE DEPARTMENT MICROBIOLOGY - G ENERAL ORDERABLES [facility] [place] [address] documented in this encounter Visit Diagnoses Diagnosis Bloating Flatulence, eructation, and gas pain Dyspepsia Dyspepsia and other specified disorders of function of stomach documented in this encounter Care Teams Ammonia Nitrate Operator Relationship Specialty Start Date End Date Lius E Narayan MD [facility] DR LILI W[place] [address] PCP - General Family Medicine 01/20/22 07/17/22 documented as of this encounter
--- OUTSIDE RECORDS SUMMARY | 2024-06-07 13:35 | XMS_ITS | Encounter Summary ---
Author Organization [facility] Address [facility] [place] [address] Care Team Providers Care Reactor Fueling Supervisor Name Role Phone Luis E Narayan MD Primary Care Provider [phone]- [phone] Reason for Visit * Reason Onset Date Comments Other 04/07/2022 Order Issues Encounter Details Date Type Department Care Team (Late st Contact Info) Description 04/07/2022 Telephone Family Medicine at [facility] [address] [place] [phone] Luis E Narayan MD [facility] DR LILI [place] [address] Other (Order Issues) Social History Tobacco Use [...] EDT Order signed by COS. Faxed to [facility] along with associated documents * Telephone Encounter - Alejandra Posadas RN - 04/08/2022 6:52 AM EDT Prepped/pended DME that will print for faxing. Need Physician or ESTHELA signature. Needs to be faxed to [facility] along with demographics and office [...] 04/07/2022 10:07 AM EDT Message: Ani from [facility] calling in regards to orders received for Nebulizer. She statesshe just needs provider to also send in prescription for supplies along with it. Please call with questions/concerns Ask caller their first and last name and [facility] the [facility] Best time to call back: Any Ok to leave a message: Yes Ok to send my- message: x Offered Appointment: x MA/Nurse/[place] contacted via: Message: Yes Call: x Pager: x documented in this encounter Plan of Treatment Upcoming Encounters Date Type Department Care Team (Late st Contact Info) Description 06/28/2024 9:30 AM EST Office Visit Internal Medicine at [address] [address] Daryn Garrett MD [facility] DR LILI [place] [address] 10/02/2024 1:00 PM EDT Office [place] [phone] Juanpablo Hernandez MD [facility] [place] [address] 01/30/2025 1:30 PM EDT Laboratory Appointment Lab at [facility] Hematology Oncology [address] [place] [phone] 01/30/2025 3:[address] [place] [address] Arturo Cordero MD [facility] DR [place] [address] 01/30/2025 4:15 PM EDT Office Visit Hematology [place] [address] Arturo Cordero MD [facility] DR [place] [address] Scheduled Procedures Name Priority Associated Diagnoses Date/Ti me EGD, UPPER GI ENDOSCOPY (WRV U 2.09) Irritable bowel syndrome with constipation COLONOSCOPY, DIAGNOSTIC (WRV U 3.26) Irritable bowel syndrome with constipation documented as of this encounter Visit Diagnoses Diagnosis Simple chronic bronchitis documented in this encounter Care Teams Reactor Fueling Supervisor Relationship Specialty Start Date End Date Luis E Narayan MD [facility] DR LILI [place] [address] PCP - General Family Medicine 01/20/22 07/17/22 documented as of this encounter
--- OUTSIDE RECORDS SUMMARY | 2024-06-07 13:35 | XMS_ITS | Encounter Summary ---
Author Organization [facility] Address [facility] [place] [address] Care Team Providers Care Delivery Truck Driver Heavy Name Role Phone Luis E Narayan MD Primary Care Provider [phone] Reason for Visit * Reason Onset Date Comments Medication Refill 03/25/2022 Encounter Details Date Type Department Care Team (Late st Contact Info) Description 03/25/2022 Refill Family Medicine at [facility] [address] [place] [address] Cuate Solis PA [facility] DR L[place] [address] Essential hypertension Social History Tobacco Use Types [...] AM EST Office Visit Internal Medicine at [facility] [address] [place] [phone] Daryn Garrett MD [facility] [address] 10/02/2024 1:00 PM EDT Office [place] [phone] Juanpablo Hernandez MD [facility] [place] [place] [address] 01/30/2025 1:30 PM EDT Laboratory Appointment Lab at [facility] Hematology Oncology [address] [place] [phone] 01/30/2025 3:[address] [place] [phone] Arturo Cordero MD [facility] [place] [address] 01/30/2025 4:15 PM EDT Office Visit Hematology [place] [phone] Arturo Cordero MD [facility] [address] [place] [address] Scheduled Procedures Name Priority Associated Diagnoses Date/Ti me EGD, UPPER GI ENDOSCOPY (WRV U 2.09) Irritable bowel syndrome with constipation COLONOSCOPY, DIAGNOSTIC (WRV U 3.26) Irritable bowel syndrome with constipation documented as of this encounter Visit Diagnoses Diagnosis Essential hypertension Unspecified essential hypertension documented in this encounter Care Teams Delivery Truck Driver Heavy Relationship Specialty Start Date End Date Luis E Narayan MD [facility] [address] LIL[facility] [place] [address] PCP - General Family Medicine 01/20/22 07/17/22 documented as of this encounter
--- OUTSIDE RECORDS SUMMARY | 2024-06-07 13:35 | XMS_ITS | Encounter Summary ---
Author Organization [facility] [place] [address] Care Team Providers Care Food Services Director Name Role Phone Luis E Narayan MD Primary Care Provider Encounter Details Date Type Department Care Team (Latest Contact Info) Description 03/03/2022 2:03 PM EDT - 03/03/2022 11:59 PM EDT [place] [address] Discharge Disposition: Home Social History Tobacco Use [...] each 12/10/2021 02/04/2023 FreeStyle Sanjana 2 [place] MiscIndications:diabetes mellitus 1 each by Other route daily. Indications: diabetes mellitus 1 each 10/26/2021 01/23/2023 FreeStyle Sanjana 2 Sensor KitIndications:diabetes mellitus 1 each by Other route every 14 days. Indications: diabetes mellitus 2 kit 10/26/2021 01/23/2023 FreeStyle Lancets 28 gauge MiscIndications:diabetes mellitus 1 each by Other route 3 times daily. Indications: diabetes mellitus 100 each 11 10/11/2021 06/16/2022 fluticasone propionate (Flonase) 50 mcg/actuation [place], Suspension 1 spray by Each Nare route [...] AM EST Office Visit Internal Medicine at [address] [phone] Daryn Garrett MD [facility] [address] LILI WALKER [place] [address] 10/02/2024 1:00 PM EDT Office Visit [place] [phone] Juanpablo Hernandez MD [facility] [place] [address] 01/30/2025 1:30 PM EDT Laboratory Appointment Lab at [facility] Hematology Oncology [address] [place] [phone] 01/30/2025 3:[address] [place] [phone] Arturo Cordero MD [facility] HEMATOLOGY [place] [address] 01/30/2025 4:15 PM EDT Office Visit Hematology [place] [address] Arturo Cordero MD [facility] HEMATOLOGY [place] [address] Scheduled Procedures Name Priority Associated Diagnoses Date/Ti me EGD, UPPER GI ENDOSCOPY (WRV U 2.09) Irritable bowel syndrome with constipation COLONOSCOPY, DIAGNOSTIC (WRV U 3.26) Irritable bowel syndrome with constipation documented as of this encounter Visit Diagnoses Not on filedocumented in this encounter Care Teams Food Services Director Relationship Specialty Start Date End Date Luis E Narayan MD [facility] [address] [place] [address] PCP - General Family Medicine 01/20/22 07/17/22 documented as of this encounter
--- OUTSIDE RECORDS SUMMARY | 2024-06-07 13:35 | XMS_ITS | Encounter Summary ---
[place] [address] Care Team Providers Care Air Gun Operator Name Role Phone Luis E Narayan MD Primary Care Provider Reason for Referral * Diagnostic Test (Routine) - Closed Specialty Diagnoses / Procedures Referred By Contac t Referred To Contact Radiology Diagnoses Malignant melanoma of conjunctiva, left Procedures CT Chest Abdomen Pelvis w Contrast (Generic) Leandra Black APRN [facility] [place] [address] [facility] [place] [address] Referral ID Status Reason Start Date Expiration Date V isits Requested Visits Authorized [id number] Closed Specialty Service Requested 12/24/2021 06/25/2023 1 1 * Diagnostic Test (Routine) - Closed Specialty Diagnoses / Procedures Referred By Contac t Referred To Contact Radiology Diagnoses Malignant melanoma of conjunctiva, left Procedures CT Neck Soft Tissue w Contrast (Generic) Leandra Black APRN [facility] [place] [address] [facility] [place] [address] Referral ID Status Reason Start Date Expiration Date V isits Requested Visits Authorized [id number] Closed Specialty Service Requested 12/24/2021 06/25/2023 1 1 Reason for Visit * Reason Comments Follow-up Encounter Details Date Type Department Care Team (Late st Contact Info) Description 12/23/2021 3:15 PM EDT Office Visit Hematology [place] [address] Arturo Cordero MD [facility] [place] [address] Leandra Black APRN [facility] [place] [address] Malignant melanoma of conjunctiva, left; History of [...] management - fall 2018: saw a new breaker engineer and was referred to Dr. 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 Medina - 03/31/2020: saw her breaker engineer Dr. Hernandez and was noted to [...] uses inhalerswith good effect ??? Atherosclerosis of [place] coronary artery of [place] heart with angina pectoris 10/09/2007 History of [...] MD at [facility] ??? PRO EXCIS CORNEA LESN Left 05/14/2020 EXCISION OF LESION, CORNEA, EXCEPT PTERYGIUM (WRVU 7.5) performed by Juanpablo Hernandez MD at [facility] ??? PRO LAP, PARTIAL NEPHRECTOMY Left 06/28/2019 LAPAROSCOPY, PARTIAL NEPHRECTOMY, ROBOTIC ASSIST (WRVU 27.41) performed by Josseline Medina MD at [facility] MAIN OR ??? 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 o Sun Exposure: Use broad spectrum, 30 SPF or higher, water resistant sunscreen with reapplication every 2 hours OR SPF clothing and limit your amount of direct sun exposure when possible. o Regular skin and lymph node self-examination should be performed. Please report any new lesions, lumps or bumps of concern to your weight and test bar clerk or oncology team. ? You should be [...] new symptoms or concerns. Leandra Black DNP, RAILROAD CONSTRUCTION DIRECTOR Return in 3 mos for stand alone US RTC in 6 mos with labs, clinic appointment and CT scan documented in this encounter Plan of Treatment Upcoming Encounters Date Type Department Care Team (Late st Contact Info) Description 06/28/2024 9:30 AM EST Office Visit Internal Medicine at [address] [phone] Daryn Garrett MD [facility] [place] [address] 10/02/2024 1:00 PM EDT Office [place] [phone] Juanpablo Hernandez MD [facility] [place] [address] 01/30/2025 1:30 PM EDT Laboratory Appointment Lab at [facility] Hematology Oncology [address] [place] [phone] 01/30/2025 3:[address] [place] [phone] Arturo Cordero MD [facility] [place] [address] 01/30/2025 4:15 PM EDT Office Visit [place] [address] Arturo Cordero MD [facility] [place] [address] Scheduled Procedures Name Priority Associated Diagnoses Date/Ti [...] have questions please contact the health care technician that requested your imaging first. [...] who have questions please contactthe health care technician that requested your imaging first. Leandra Black APRN [facility] ORDER[facility] * CT Neck Soft Tissue [...] have questions please contact the health care technician that requested your imaging first. [...] who have questions please contactthe health care technician that requested your imaging first. Leandra Black [...] have questions, please contact the health care technician that requested your imaging first. ? Roland Izaguirre, Staff Physician Electronically Signed Final Report ?? 03/21/2022 02:04 pm Narrative 03/21/2022 2:05 PM EDT Ultrasound Lymph Node ? (Signed Final 03/21/2022 02:04 pm) Report PATIENT INFO: ID #: ? [id number] ?: ??58 (61 yrs)(F) Name: ? PATIENCE Tran JOSSELINE ? Visit Date: 03/21/2022 01:33 pm PERFORMED BY: Performed By: ? Stephany Pittman RDMS Attending: ?Dmitriy COLVIN, Roland Fung Resident: ? Rojelio COLVIN, Gia Davalos Referred By: ?LEANDRA BLACK Location: ? [place] SERVICE(S) PROVIDED: USTN - Soft Tissue Neck or Head - [id number] ? [id number] INDICATIONS: History of left eye conjunctival melanoma s/p resection, [facility] imaging of left neck [place] --------- FINDINGS: --------- Title: ? Ultrasound Lymph Node Report Findings: ?Several visualized lymph nodes, largest measures ?1.6 cm left level 2. Procedure Note Roland Izaguirre MD - 03/21/2022 Ultrasound Lymph Node (Signed Final 03/21/2022 02:04 pm) Report PATIENT INFO: ID #: [id number] : 58 (61 yrs)(F) Name: PATIENCE MANJARREZ Visit Date: 03/21/2022 01:33 pm PERFORMED BY: Performed By: Stephany Pittman RDMS Attending: Dmitriy COLVIN, Roland Fung Resident: Gia Serrato MD Referred By: LEANDRA BLACK Location: [place] SERVICE(S) PROVIDED: USTN - Soft Tissue Neck or Head - [id number] INDICATIONS: History of left eye conjunctival melanoma [...] have questions, please contact the health care technician that requested your imaging first. Roland Izaguirre, Staff Physician Electronically Signed Final Report 03/21/2022 02:04 pm Leandra Black RAILROAD CONSTRUCTION DIRECTOR IMG US GEN ORDERAB LES * Lactate Dehydrogenase (12/23/2021 12:45 PM EDT) Lactate Dehydrogenase 219 110 - 220 unit/L [facility] Blood 12/23/2021 12:4 5 PM EDT 12/23/2021 1:04 PM EDT Narrative Resulting Agency Comment Spec In Lab Leandra Black RAILROAD CONSTRUCTION DIRECTOR CHEMISTRY ORDERABL ES [facility] [place] [address] * (ABNORMAL) Comprehensive metabolic panel (non-fasting) (12/23/2021 12:45 PM EDT) Glucose 190 65 - 199 mg/dL [facility] Comment:Diabetes: >=200 mg/d L plus symptoms Blood Urea Nitrogen 13 8 - 18 mg/dL [facility] Creatinine 0.88 0.70 - 1.20 mg/dL [facility] Sodium 139 135 - 145 mmol/L [facility] Potassium 4.4 3.5 - 5.0 mmol/L [facility] Comment: Please note: ??Patients with WBC >100,000 may have falsely elevated Potassium levels. ??For accurate Potassium quantification in these patients send serum separator tube (gold top) for subsequent determinations. ??Contact the Clinical Chemistry Laboratory if there are any questions. Chloride 104 98 - 107 mmol/L [facility] Carbon Dioxide 25 22 - 31 mmol/L [facility] Anion Gap 10 5 - 15 mmol/L [facility] Calcium 9.5 8.5 - 10.5 mg/dL [facility] Protein, Total 6.7 6.1 - 8.0 g/dL [facility] Albumin 4.1 3.2 - 5.2 g/dL [facility] Aspartate Aminotransferase 29 0 - 30 unit/L [facility] Alanine Aminotransferase 35(H) 0 - 30 unit/L [facility] Alkaline Phosphatase 93 35 - 105 unit/L [facility] Bilirubin, Total 0.4 0.2 - 1.3 mg/dL [facility] Est Glomerular Filtration Rate 74 >=60 mL/min/1. 73 m?? [facility] [...] Lab Leandra Black APRN CHEMISTRY ORDERABL ES [facility] [place] [address] documented in this encounter Visit Diagnoses Diagnosis Malignant melanoma of conjunctiva, left History of renal cell cancer Malignant melanoma of conjunctiva, left Malignant melanoma of conjunctiva, left documented in this encounter Care Teams Air Gun Operator Relationship Specialty Start Date End Date Luis E Narayan MD [facility] [address] [place] [address] PCP - General Family Medicine 03/26/19 01/19/22 documented as of this encounter
--- OUTSIDE RECORDS SUMMARY | 2024-06-07 13:35 | XMS_ITS | Encounter Summary ---
Author Organization [facility] Address [facility] [place] [address] Care Team Providers Care Adult Health Clinical Nurse Specialist Name Role Phone Luis E Narayan MD Primary Care Provider [phone]- [phone] Reason for Visit * Reason Comments Follow-up Encounter Details Date Type Department Care Team (Late st Contact Info) Description 04/12/2022 1:00 PM EDT Office Visit Family Medicine at [facility] [address] [place] [address] Suzanne Martinez [address] [facility] [address] LILI W[place] [address] Acute upper respiratory infection; Frequency of micturition; [...] emergency room visits near her home in [facility]. On 03/28, she wasprescribed Augmentin and [...] Code ??? Coronary artery disease involving [place] coronary artery of [place] heart with angina pectoris I25.119 ??? Altered [...] Medicine at [facility] [address] [place] [address] [facility] DR LILI WALKER - [place] [address] 10/02/2024 1:00 PM EDT Office Visit Ophthalmology at [place] [phone] [facility] [place] [address] 01/30/2025 1:30 PM EDT Laboratory Appointment Lab at [facility] Hematology Oncology [address] [place] [phone] 01/30/2025 3:[address] [place] [phone] [facility] DR HEMATOLOGY [place] [address] 01/30/2025 4:15 PM EDT Office Visit [place]ematology [place] [address] [facility] DR [place] [address] Scheduled Procedures Name Priority Associated Diagnoses Date/Ti [...] Hemoglobin A1c 9.2(H) 4.3 - 5.6 % [facility] [...] Mellitus, Diabetes Care 2013; 36: Suppl. 1, S39-83 Estimated Average Glucose 217 mg/dL [facility] Comment: eAG equivalents for HbA1c [...] into estimated average glucose values. ??Diabetes Care 2008:31(8):2716-4698. Blood 04/12/2022 2:20 PM EDT 04/12/2022 4:10 PM EDT Narrative Resulting Agency Comment Spec In Lab Suaznne A Michelle HEDIS REVIEW NURSE CHEMISTRY ORDERABL ES [facility] [place] [address] * (ABNORMAL) Comprehensive metabolic panel (non-fasting) (04/12/2022 2:20 PM EDT) Glucose 278(H) 65 - 199 mg/dL [facility] Comment:Diabetes: >=200 mg/d L plus symptoms Blood Urea Nitrogen 11 8 - 18 mg/dL [facility] Creatinine 0.96 0.70 - 1.20 mg/dL [facility] Sodium 138 135 - 145 mmol/L [facility] Potassium 4.5 3.5 - 5.0 mmol/L [facility] Comment: Please note: ??Patients with WBC >100,000 may have falsely elevated Potassium levels. ??For accurate Potassium quantification in these patients send serum separator tube (gold top) for subsequent determinations. ??Contact the Clinical Chemistry Laboratory if there are any questions. Chloride 99 98 - 107 mmol/L [facility] Carbon Dioxide 27 22 - 31 mmol/L [facility] Anion Gap 12 5 - 15 mmol/L [facility] Calcium 10.0 8.5 - 10.5 mg/dL [facility] Protein, Total 6.9 6.1 - 8.0 g/dL [facility] Albumin 4.1 3.2 - 5.2 g/dL [facility] Aspartate Aminotransferase 18 0 - 30 unit/L [facility] Alanine Aminotransferase 27 0 - 30 unit/L [facility] Alkaline Phosphatase 104 35 - 105 unit/L [facility] Bilirubin, Total 0.6 0.2 - 1.3 mg/dL [facility] Est Glomerular Filtration Rate 67 >=60 mL/min/1. 73 m?? [facility] Comment: This patient's estimated GFR [...] Lab Suzanne Martinez APRN CHEMISTRY ORDERABL ES [facility] [place] [address] * (ABNORMAL) POCT urine dipstick (04/12/2022 1:50 PM EDT) POC Sp Kimball 1.015 1.002 - 1.030 POC pH, UA [...] Glucose, Urine Dipstick >=1000(Criti mariann) Negative mg/dL [facility] Comment: Urinalysis result NOT critical without a combination of Glucose greater than or equal to 500 mg/dL AND Ketones greater than or equal to 80 mg/dL Protein, Urine Dipstick Negative Negative mg/dL [facility] Bilirubin, Urine Dipstick Negative Negative mg/dL [facility] Comment: Clinical correlation required for positive Urine Bilirubin results as false positive may occur with some drugs and drug related products. If a false positive is suspected a serum total bilirubin should be considered if clinically indicated. Urobilinogen, Urine Dipstick Normal Normal mg/dL [facility] pH, Urn (dipstick) 6.0 5.0 - 8.0 [facility] Blood, Urine Dipstick Negative Negative mg/dL [facility] Ketone, Urine Dipstick Negative Negative mg/dL [facility] Nitrite, Urine Dipstick Negative Negative [facility] Leukocytes, Urine Dipstick Negative Negative [facility] Appearance, Urine Dipstick Clear Clear [facility] Specific Kimball Urine Automated 1.024 1.005 - 1.030 [facility] Color, Urine Dipstick Yellow Yellow [facility] Reflex to Culture No [facility] Clean Catch Urine 04/12/2022 1:30 PM EDT 04/12/2022 6:54 PM EDT Narrative Resulting Agency Comment Spec In Lab Suzanne Martinez APRN URINE ORDERABLES [facility] [place] [address] documented in this encounter Visit Diagnoses Diagnosis Acute upper respiratory infection Acute upper respiratory infections of unspecified site Frequency of micturition Urinary frequency Lower abdominal pain Abdominal pain, other specified site Type 2 diabetes mellitus with hyperglycemia, without long-term current use of insulin Ear pain, bilateral Oral thrush Candidiasis of mouth Intertrigo Other specified erythematous condition documented in this encounter Care Teams Adult Health Clinical Nurse Specialist Relationship Specialty Start Date End Date Luis E Narayan MD [facility] [address] [place] [address] PCP - General Family Medicine 01/20/22 07/17/22 documented as of this encounter
--- OUTSIDE RECORDS SUMMARY | 2024-06-07 13:35 | XMS_ITS | Encounter Summary ---
Author Organization [facility] Address [facility] [place] [address] Care Team Providers Care Control Clerk Subassembly Name Role Phone Daryn Garrett MD Primary Care Provider [phone] Reason for Visit * Reason Onset Date Comments Medication Refill 03/25/2022 Encounter Details Date Type Department Care Team (Late st Contact Info) Description 03/25/2022 Refill Family Medicine at [facility] [address] [place] [phone] Cuate Solis PA [facility] DR LILI WALKER[place] [address] Social History Tobacco Use Types Packs/Day Years [...] AM EST Office Visit Internal Medicine at [place] [address] [place] [address] Daryn Garrett MD [facility] DR LILI WALKER [place] [address] 10/02/2024 1:00 PM EDT Office [place] [phone] Juanpablo Hernandez MD [facility] [place] [address] 01/30/2025 1:30 PM EDT Laboratory Appointment Lab at [facility] Hematology Oncology [address] [place] [phone] 01/30/2025 3:[address] [place] [address] Arturo Cordero MD [facility] DR HEMATOLOGY [place] [address] 01/30/2025 4:15 PM EDT Office Visit Hematology [place] [phone] Arturo Cordero MD [facility] DR HEMATOLOGY [place] [address] Scheduled Procedures Name Priority Associated Diagnoses Date/Ti me EGD, UPPER GI ENDOSCOPY (WRV U 2.09) Irritable bowel syndrome with constipation COLONOSCOPY, DIAGNOSTIC (WRV U 3.26) Irritable bowel syndrome with constipation documented as of this encounter Visit Diagnoses Not on filedocumented in this encounter Care Teams Control Clerk Subassembly Relationship Specialty Start Date End Date Daryn Garrett MD [facility] [address] [place] [address] PCP - General 04/10/24 documented as of this encounter
--- OUTSIDE RECORDS SUMMARY | 2024-06-07 13:35 | XMS_ITS | Encounter Summary ---
[place] [address] Care Team Providers Care Doula Name Role Phone Luis E Narayan MD Primary Care Provider Reason for Referral * Diagnostic Test (Routine) - Closed Specialty Diagnoses / Procedures Referred By Gonzalez kumari Referred To Contact Gastroenterology Diagnoses Bloating Dyspepsia HBT - glucose - bloating Procedures Breath Hydrogen Test HBT - glucose - bloating Alejandra Pop APRN [address] [place] [address] [facility] [address] [place] [address] Referral ID Status Reason Start Date Expiration Date V isits Requested Visits Authorized [id number] Closed Consult, Test & Treat 03/01/2022 03/01/2023 1 1 * Diagnostic Test (Routine) - Closed Specialty Diagnoses / Procedures Referred By Gonzalez kumari Referred To Contact Gastroenterology Diagnoses Bloating Dyspepsia Smartpill for nausea Procedures SmartPill Smartpill for nausea Alejandra Pop APRN [address] [place] [address] [facility] [address] [place] [address] Referral ID Status Reason Start Date Expiration Date V isits Requested Visits Authorized [id number] Closed Consult, Test & Treat 03/01/2022 03/01/2023 1 1 Reason for Visit * Consultation (Routine) - Closed Specialty Diagnoses / Procedures Referred By Contac t Referred To Contact Gastroenterology Diagnoses NAFL (nonalcoholic fatty liver) /abd pain/bloating - see Luis E Saba MD [facility] DR LILI WALKER-[place] [address] [facility] [place] [address] [place] [address] Referral ID Status Reason Start Date Expiration Date V isits Requested Visits Authorized [id number] Closed Consult, Test & Treat 12/15/2021 12/15/2022 1 1 Encounter Details Date Type Department Care Team (Late st Contact Info) Description 03/01/2022 3:00 PM EDT Office [place] [address] Alejandra Pop, ACCOUNTS PAYABLE SPECIALIST [address] [place] [address] Bloating; Dyspepsia Social History Tobacco [...] 3L on the main campus of [facility] in [place] or may report to [facility] 8. Smart pill. You will hear from our enterprise application developer to set this up once an appointment becomes available. You should hear from someone within one week. If not please call us. If insurance doesn't cover the smart pill, I will ask you to do a gastric emptying scan instead. We will let you know. Please call radiology at to schedule. 9. Hydrogen breath test. You will hear from our enterprise application developer to set this up once an appointment [...] spacer 1 each ??? FreeStyle Sanjana 2 [place] Misc 1 each by Other route daily. Indications: diabetes mellitus 1 each 0 ??? FreeStyle Sanjana 2 Sensor Kit 1 each by Other route every 14 days. Indications: diabetes mellitus 2 kit 0 ??? FreeStyle Lancets 28 gauge Misc 1 each by Other route 3 times daily. Indications: diabetes mellitus 100 each 11 ??? fluticasone propionate (Flonase) 50 mcg/actuation [place], Suspension 1 spray by Each Nare route [...] antithrombotic long-term use, Arthritis, Asthma, Atherosclerosis of [place] coronary artery of [place] heart with angina pectoris (10/09/2007), CAD (coronary [...] Coronary angioplasty with stent; Lap, Partial Nephrectomy (24173) (Left, 06/28/2019); Excis Cornea Lesn (55907) (Left, 05/14/2020); Destr Corneal Lesn, Cryo, Photo, Therm (75528) (Left, 05/14/2020); PlaceAmniotic Membrane Ocular Surface;Single Layer Sutured (56031) (Left, 05/14/2020); laser surgery; andcryopexy (Left). Family [...] after testing is complete Alejandra Pop APRN [facility] [place] [phone] documented in this encounter Plan of Treatment Upcoming Encounters Date Type Department Care Team (Late st Contact Info) Description 06/28/2024 9:30 AM EST Office Visit Internal Medicine at [facility] [address] [place] [address] Daryn Garrett MD [facility] DR LILI WALKER [place] [address] 10/02/2024 1:00 PM EDT Office [place] [phone] Juanpablo Hernandez MD [facility] [place] [address] 01/30/2025 1:30 PM EDT Laboratory Appointment Lab at [facility] Hematology Oncology [address] [place] [phone] 01/30/2025 3:[address] [place] [phone] Arturo Cordero MD [facility] DR HEMATOLOGY [place] [address] 01/30/2025 4:15 PM EDT Office Visit Hematology [place] [address] Arturo Cordero MD [facility] DR HEMATOLOGY [place] [address] Scheduled Orders Name Type Priority Associated Diagnoses Orde r Schedule SmartPill GI Routine Bloating Dyspepsia Expected: 03/01/2022 (Approximate), Expires: 08/31/2022 Breath Hydrogen Test GI Routine Bloating Dyspepsia Expected: 03/01/2022 (Approximate), Expires: 08/31/2022 Scheduled Procedures Name Priority Associated Diagnoses Date/Ti me EGD, UPPER GI ENDOSCOPY (WRV U 2.09) Irritable bowel syndrome with constipation COLONOSCOPY, DIAGNOSTIC (WRV U 3.26) Irritable bowel syndrome with constipation documented as of this encounter Visit Diagnoses Diagnosis Bloating Flatulence, eructation, and gas pain Dyspepsia Dyspepsia and other specified disorders of function of stomach documented in this encounter Care Teams Doula Relationship Specialty Start Date End Date Lusi E Narayan MD [facility] DR LILI WALKER-[place] [address] PCP - General Family Medicine 01/20/22 07/17/22 documented as of this encounter
--- OUTSIDE RECORDS SUMMARY | 2024-06-07 13:36 | XMS_ITS | Encounter Summary ---
Author Organization [facility] Address [facility] [place] [address] Care Team Providers Care Traffic Ii Manager Name Role Phone Luis E Narayan MD Primary Care Provider +1- [phone] Reason for Visit * Reason Comments Diabetes Encounter Details Date Type Department Care Team (Late st Contact Info) Description 09/24/2021 11:30 AM EDT TH Visit (TeleHealth) Family Medicine at [facility] [address] [place] [address] Julia Low, [facility] Type 2 [...] antithrombotic long-term use, Arthritis, Asthma, Atherosclerosis of [place] 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 [...] afternoon SMBG: SMBG daily (FBG) Misplaced prescribed QXL ricardo plce CGM when moving Before Brkfast Before Supper [...] 08/26/21 09/09/21 Daily Avg 157 168 eA1c [id number] 8.46 Acute Complications Have you ever had [...] enough to eat eggs every day. Lunch: [place] with ham/turkey, Georgian cheese, crisostomo, mustard with Doritos Dinner: Spaghetti [...] area transportation options [] Languages other than Tajik: Raw Mill Operator services provided No [] Allowances for cultural diversity: meal plan will be tailored for cultural food shavon [] Hearing: Armored Car Messenger provided No [] Vision impaired: print augmentation for visual impairment [x] No learning barriers identified Patient reports that after being sick with a virus, and a hospital admission involving levothyroxine, she has speech and cognitive problems. Objective: Reconciled Medication List: Current Outpatient Medications Medication Sig Dispense Refill ??? fluticasone propionate (Flonase) 50 mcg/actuation [place], Suspension 1 spray by Each Nare route [...] 30 tablet 3 ??? FreeStyle Sanjana 2 [place] Misc 1 each by Other route daily. [...] 09/07/2005 TDAP 04/09/2019 , 06/24/2011 Prescription Insurance: [facility] [id number] Assessment and Recommendations: 1. Diabetes Goals of [...] for the individual, but in general the [place] [employer] recommends a fasting blood sugar [...] made at the appointment and that [facility] is providing recommendations (summary located at top of note) for provider review and follow up. Julia Low RPH 09/24/21 documented in this encounter Plan of Treatment Upcoming Encounters Date Type Department Care Team (Late st Contact Info) Description 06/28/2024 9:30 AM EST Office Visit Internal Medicine at [place] [address] [place] [address] Daryn Garrett MD [facility] DR LILI [place] [address] 10/02/2024 1:00 PM EDT Office [place] [phone] Juanpablo Hernandez MD [facility] [place] [address] 01/30/2025 1:30 PM EDT Laboratory Appointment Lab at [facility] Hematology Oncology [address] [place] [phone] 01/30/2025 3:[address] [place] [address] Arturo Cordero MD [facility] [place] [address] 01/30/2025 4:15 PM EDT Office Visit Hematology [place] [phone] Arturo Cordero MD [facility] DR [place] [address] Scheduled Procedures Name Priority Associated Diagnoses Date/Ti me EGD, UPPER GI ENDOSCOPY (WRV U 2.09) Irritable bowel syndrome with constipation COLONOSCOPY, DIAGNOSTIC (WRV U 3.26) Irritable bowel syndrome with constipation documented as of this encounter Visit Diagnoses Diagnosis Type 2 diabetes mellitus without long-term current use of insulin documented in this encounter Care Teams Traffic Ii Manager Relationship Specialty Start Date End Date Luis E Narayan MD [facility] [address] [place] [address] PCP - General Family Medicine 03/26/19 01/19/22 documented as of this encounter
--- OUTSIDE RECORDS SUMMARY | 2024-06-07 13:36 | XMS_ITS | Encounter Summary ---
Author Organization [facility] Address [facility] [place] [address] Care Team Providers Care Accounts Payable Analyst Name Role Phone Daryn Garrett MD Primary Care Provider Encounter Details Date Type Department Care Team (Late st Contact Info) Description 09/10/2021 Refill [facility] [address] [place] [address] Luis E Narayan MD [facility] DR LILI AZEVEDO[place] [address] Social History Tobacco Use Types Packs/Day Years [...] AM EST Office Visit [facility] [address] [place] [phone] Daryn Garrett MD [facility] DR LILI AZEVEDO [place] [address] 10/02/2024 1:00 PM EDT Office [place] [phone] Juanpablo Hernandez MD [facility] [place] [address] 01/30/2025 1:30 PM EDT Laboratory Appointment Lab at [facility] Hematology Oncology [address] [place] [phone] 01/30/2025 3:[address] [place] [address] Arturo Cordero MD [facility] DR HEMATOLOGY [place] [address] 01/30/2025 4:15 PM EDT Office Visit Hematology and Oncology at [facility] [place] [phone] Arturo Cordero MD [facility] DR HEMATOLOGY [place] [address] Scheduled Procedures Name Priority Associated Diagnoses Date/Ti me EGD, UPPER GI ENDOSCOPY (WRV U 2.09) Irritable bowel syndrome with constipation COLONOSCOPY, DIAGNOSTIC (WRV U 3.26) Irritable bowel syndrome with constipation documented as of this encounter Visit Diagnoses Not on filedocumented in this encounter Care Teams Accounts Payable Analyst Relationship Specialty Start Date End Date Daryn Garrett MD [facility] DR LILI AZEVEDO [place] [address] PCP - General 04/10/24 documented as of this encounter
--- OUTSIDE RECORDS SUMMARY | 2024-06-07 13:36 | XMS_ITS | Encounter Summary ---
Author Organization Counts Include [facility] Address [facility] [place] [address] Care Team Providers Care Ict Account Manager Name Role Phone Luis E Narayan MD Primary Care Provider +1- [phone] Reason for Visit * Reason Onset Date Comments Medication Refill 08/02/2021 Encounter Details Date Type Department Care Team (Late st Contact Info) Description 08/02/2021 Refill Family Medicine at [facility] [address] [place] [address] Luis E Narayan MD [facility] DR LILI [place] [address] Social History Tobacco Use Types Packs/Day Years [...] AM EST Office Visit Internal Medicine at [place] [address] [place] [address] Daryn Garrett MD [facility] DR LILI [place] [address] 10/02/2024 1:00 PM EDT Office [place] [phone] Juanpablo Hernandez MD [facility] [place] [address] 01/30/2025 1:30 PM EDT Laboratory Appointment Lab at [facility] Hematology Oncology [address] [place] [phone] 01/30/2025 3:[address] [place] [address] Arturo Cordero MD [facility] [address] [place] [address] 01/30/2025 4:15 PM EDT Office Visit H[place]ology [place] [phone] Arturo Cordero MD [facility] [address] [place] [address] Scheduled Procedures Name Priority Associated Diagnoses Date/Ti me EGD, UPPER GI ENDOSCOPY (WRV U 2.09) Irritable bowel syndrome with constipation COLONOSCOPY, DIAGNOSTIC (WRV U 3.26) Irritable bowel syndrome with constipation documented as of this encounter Visit Diagnoses Not on filedocumented in this encounter Care Teams Ict Account Manager Relationship Specialty Start Date End Date Luis E Narayan MD [facility] [address] [place] [address] PCP - General Family Medicine 03/26/19 01/19/22 documented as of this encounter
--- OUTSIDE RECORDS SUMMARY | 2024-06-07 13:36 | XMS_ITS | Encounter Summary ---
Author Organization [facility] Address [facility] [place] [address] Care Team Providers Care Storeroom Clerk Name Role Phone Luis E Narayan MD Primary Care Provider Reason for Referral * Consultation (Routine) - Closed Specialty Diagnoses / Procedures Referred By Gonzalez kumari Referred To Contact Dermatology Diagnoses Malignant melanoma of conjunctiva, left Shane Givens MD [facility] [place] [address] [facility] Dermatology [address] [place] [address] Referral ID Status Reason Start Date Expiration Date V isits Requested Visits Authorized [id number] Closed Consult, Test & Treat 11/17/2021 11/17/2022 1 1 Encounter Details Date Type Department Care Team (Late st Contact Info) Description 11/17/2021 1:30 PM EDT Office Visit [place] [address] Shane Givens MD [facility] [place] [address] Malignant melanoma of conjunctiva, left; Diabetic eye [...] AM EST Office Visit Internal Medicine at [facility] [address] [place] [address] Daryn Garrett MD [facility] [address] LILI AZEVEDO [place] [address] 10/02/2024 1:00 PM EDT Office [place] [address] Juanpablo Hernandez MD [facility] [place] [address] 01/30/2025 1:30 PM EDT Laboratory Appointment Lab at [facility] [place] Oncology [address] [place] [phone] 01/30/2025 3:[address] [place] [address] Arturo Cordero MD [facility] DR HEMATOLOGY [place] [address] 01/30/2025 4:15 PM EDT Office Visit Hematology [place] [address] Arturo Cordero MD [facility] DR HEMATOLOGY [place] [address] Scheduled Procedures Name Priority Associated Diagnoses Date/Ti [...] vision documented in this encounter Care Teams Storeroom Clerk Relationship Specialty Start Date End Date Luis E Narayan MD [facility] [address] [place] [address] PCP - General Family Medicine 03/26/19 01/19/22 documented as of this encounter
--- OUTSIDE RECORDS SUMMARY | 2024-06-07 13:36 | XMS_ITS | Encounter Summary ---
Author Organization [facility] Address [facility] [place] [address] Care Team Providers Care Human Resources Project Coordinator Name Role Phone Luis E Narayan MD Primary Care Provider +1- [phone] Encounter Details Date Type Department Care Team (Late st Contact Info) Description 11/08/2021 Tele[address] [facility] [address] [place] [phone] Luis E Narayan MD [facility] DR LILI AZEVEDO[place] [address] Social History Tobacco Use Types Packs/Day Years [...] EST Office Visit Internal Medicine at [address] [place] [phone] Daryn Garrett MD [facility] DR LILI AZEVEDO [place] [address] 10/02/2024 1:00 PM EDT Office [place] [phone] Juanpablo Hernandez MD [facility] [place] [address] 01/30/2025 1:30 PM EDT Laboratory Appointment Lab at [facility] Hematology Oncology [address] [place] [phone] 01/30/2025 3:[address] [place] [address] Arturo Cordero MD [facility] HEMATOLOGY [place] [address] 01/30/2025 4:15 PM EDT Office Visit Hematology [place] [address] Arturo Cordero MD [facility] DR HEMATOLOGY [place] [address] Scheduled Procedures Name Priority Associated Diagnoses Date/Ti me EGD, UPPER GI ENDOSCOPY (WRV U 2.09) Irritable bowel syndrome with constipation COLONOSCOPY, DIAGNOSTIC (WRV U 3.26) Irritable bowel syndrome with constipation documented as of this encounter Visit Diagnoses Not on filedocumented in this encounter Care Teams Human Resources Project Coordinator Relationship Specialty Start Date End Date Luis E Narayan MD [facility] DR LILI AZEVEDO[place] [address] PCP - General Family Medicine 03/26/19 01/19/22 documented as of this encounter
--- OUTSIDE RECORDS SUMMARY | 2024-06-07 13:36 | XMS_ITS | Encounter Summary ---
Author Organization [facility] Address [facility] [place] [address] Care Team Providers Care Jack Spooler Tender Name Role Phone Luis E Narayan MD Primary Care Provider +1- [phone] Reason for Visit * Reason Onset Date Comments Medication Refill 08/02/2021 Encounter Details Date Type Department Care Team (Late st Contact Info) Description 08/02/2021 Refill Family Medicine at [facility] [address] [place] [address] Luis E Narayan MD [facility] DR LILI [place] [address] Type 2 diabetes mellitus without long-term current [...] Office Visit Internal Medicine at [facility] [address] [place] [address] Daryn Garrett MD [facility] DR LIL[place] [address] 10/02/2024 1:00 PM EDT Office [place] [phone] Juanpablo Hernandez MD [facility] [place] [address] 01/30/2025 1:30 PM EDT Laboratory Appointment Lab at [facility] Hematology Oncology [address] [place] [phone] 01/30/2025 3:[address] [place] [address] Arturo Cordero MD [facility] [place] [address] 01/30/2025 4:15 PM EDT Office Visit Hematology [place] [address] Arturo Cordero MD [facility] [place] [address] Scheduled Procedures Name Priority Associated Diagnoses Date/Ti me EGD, UPPER GI ENDOSCOPY (WRV U 2.09) Irritable bowel syndrome with constipation COLONOSCOPY, DIAGNOSTIC (WRV U 3.26) Irritable bowel syndrome with constipation documented as of this encounter Visit Diagnoses Diagnosis Type 2 diabetes mellitus without long-term current use of insulin documented in this encounter Care Teams Jack Spooler Tender Relationship Specialty Start Date End Date Luis E Narayan MD [facility] DR LILI [place] [address] PCP - General Family Medicine 03/26/19 01/19/22 documented as of this encounter
--- OUTSIDE RECORDS SUMMARY | 2024-06-07 13:36 | XMS_ITS | Encounter Summary ---
Author Organization [facility] Address [facility] [place] [address] Care Team Providers Care Falafel Cart Cook Name Role Phone Luis E Narayan MD Primary Care Provider Reason for Visit * Reason Comments Melanoma Encounter Details Date Type Department Care Team (Late st Contact Info) Description 07/27/2021 8:45 AM EST [place] [address] Juanpablo Hernandez MD [facility] [place] [address] Malignant melanoma of conjunctiva, left s/p excision [...] AM EST Office Visit Internal Medicine at [facility] [address] [place] [address] Daryn Garrett MD [facility] DR LILI [place] [address] 10/02/2024 1:00 PM EDT Office [place] [address] Juanpablo Hernandez MD [facility] [place] [address] 01/30/2025 1:30 PM EDT Laboratory Appointment Lab at [facility] Hematology Oncology [address] [place] [phone] 01/30/2025 3:[address] [place] [place] [phone] Arturo Cordero MD [facility] DR [place] [address] 01/30/2025 4:15 PM EDT Office Visit [place]ology [place] [phone] Arturo Cordero MD [facility] DR [place] [address] Scheduled Procedures Name Priority Associated Diagnoses Date/Ti [...] left documented in this encounter Care Teams Falafel Cart Cook Relationship Specialty Start Date End Date Luis E Narayan MD [facility] [address] [place] [address] PCP - General Family Medicine 03/26/19 01/19/22 documented as of this encounter
--- OUTSIDE RECORDS SUMMARY | 2024-06-07 13:36 | XMS_ITS | Encounter Summary ---
Author Organization [facility] Address [facility] [place] [address] Care Team Providers Care Marketing Communications Coordinator Name Role Phone Luis E Naaryan MD Primary Care Provider Reason for Visit * Reason Onset Date Comments Appointment 08/20/2021 Encounter Details Date Type Department Care Team (Late st Contact Info) Description 08/20/2021 Telephone Family Medicine at [facility] [address] [place] [phone] Luis E Narayan MD [facility] DR LILI [place] [address] Appointment Social History Tobacco Use Types Packs/Day [...] Silvio Alonzo - 08/20/2021 9:12 AM EST [employer] Message sent to patient * Telephone Encounter - Dixon Billings - 08/20/2021 8:45 AM EST Message: Patient calling in regards to having their appointment for 08.20.21 rescheduled as soon aspossible. Patient states it said in her MyDH that it was changed to a telehealth visit and she received a message stating that it was changed. Engineering [employer]les was unable to find any message and the appointment showed as Office Visit not telehealth. Patient is unable to make it and automotive service writer was unable to find appointment within timeframe patient was looking for Ask caller their first and last name and relationship to the patient: Alize Gramajo Best time to call back: Any Ok to leave a message: yes Ok to send Data Expedition message: yes Offered Appointment: Yes MA/Nurse/Pot Tender contacted via: Message: Yes Call: n/a Pager: n/a documented in this encounter Plan of Treatment Upcoming Encounters Date Type Department Care Team (Late st Contact Info) Description 06/28/2024 9:30 AM EST Office Visit Internal Medicine at [facility] [address] [place] [address] Daryn Garrett MD [facility] DR LILI [place] [address] 10/02/2024 1:00 PM EDT Office [place] [phone] Juanpablo Hernandez MD [facility] [place] [address] 01/30/2025 1:30 PM EDT Laboratory Appointment Lab at [facility] Hematology Oncology [address] [place] [phone] 01/30/2025 3:[address] [place] [address] Arturo Cordero MD [facility] DR [place] [address] 01/30/2025 4:15 PM EDT Office Visit Hematology [place] [address] Arturo Cordero MD [facility] DR [place] [address] Scheduled Procedures Name Priority Associated Diagnoses Date/Ti me EGD, UPPER GI ENDOSCOPY (WRV U 2.09) Irritable bowel syndrome with constipation COLONOSCOPY, DIAGNOSTIC (WRV U 3.26) Irritable bowel syndrome with constipation documented as of this encounter Visit Diagnoses Not on filedocumented in this encounter Care Teams Marketing Communications Coordinator Relationship Specialty Start Date End Date Luis E Narayan MD [facility] DR LILI [place] [address] PCP - General Family Medicine 03/26/19 01/19/22 documented as of this encounter
--- OUTSIDE RECORDS SUMMARY | 2024-06-07 13:36 | XMS_ITS | Encounter Summary ---
Author Organization [facility] Address [facility] [place] [address] Care Team Providers Care Manager Process Excellence Name Role Phone Luis E Narayan MD Primary Care Provider +1- [phone] Reason for Visit * Reason Onset Date Comments Medication Refill 09/07/2021 Encounter Details Date Type Department Care Team (Late st Contact Info) Description 09/07/2021 Refill Family Medicine at [facility] [address] [place] [address] Luis E Narayan MD [facility] DR LILI [place] [address] Social History Tobacco Use Types Packs/Day Years [...] Refills ??? fluticasone propionate (Flonase) 50 mcg/actuation [place], Suspension 16 g 11 Si spray by Each Nare route 2 times daily. Last office visit: seen today for teleheatlh with Yocasta Low Last refill: 08/04/2020 documented in this encounter Plan of Treatment Upcoming Encounters Date Type Department Care Team (Late st Contact Info) Description 06/28/2024 9:30 AM EST Office Visit Internal Medicine at [facility] [address] [place] [address] Daryn Garrett MD [facility] DR LILI [place] [address] 10/02/2024 1:00 PM EDT Office Visit Ophthalmology at [place] [address] Juanpablo Hernandez MD [facility] [place] [place] [address] 01/30/2025 1:30 PM EDT Laboratory Appointment Lab at [facility] Hematology Oncology [address] [place] [address] 01/30/2025 3:[address] Scan at [place] [address] Arturo Cordero MD [facility] [place] [address] 01/30/2025 4:15 PM EDT Office Visit [place] [address] Arturo Cordero MD [facility] [place] [address] Scheduled Procedures Name Priority Associated Diagnoses Date/Ti me EGD, UPPER GI ENDOSCOPY (WRV U 2.09) Irritable bowel syndrome with constipation COLONOSCOPY, DIAGNOSTIC (WRV U 3.26) Irritable bowel syndrome with constipation documented as of this encounter Visit Diagnoses Not on filedocumented in this encounter Care Teams Manager Process Excellence Relationship Specialty Start Date End Date Luis E Narayan MD [facility] [address] [place] [address] PCP - General Family Medicine 03/26/19 01/19/22 documented as of this encounter
--- OUTSIDE RECORDS SUMMARY | 2024-06-07 13:36 | XMS_ITS | Encounter Summary ---
Author Organization [facility] [place] [address] Care Team Providers Care Pilates Instructor Name Role Phone Luis E Narayan MD Primary Care Provider Encounter Details Date Type Department Care Team (Latest Contact Info) Description 07/27/2021 7:42 AM EST - 07/27/2021 11:59 PM EST Hospital Encounter Mammography/[place] [address] Luis E Narayan MD [facility] DR LILI WALK[place] [address] Visit for screening mammogram Discharge Disposition: Home [...] tablet 1 01/08/2021 08/02/2021 FreeStyle Sanjana 2 [place] MiscIndications:diabetes mellitus 1 each by Other route [...] 09/15/2020 09/19/2023 fluticasone propionate (FLONASE) 50 mcg/actuation [place], Suspension 1 spray by Each Nare route [...] AM EST Office Visit Internal Medicine at [place] [address] [place] [address] Daryn Garrett MD [facility] [address] LILI [place] [address] 10/02/2024 1:00 PM EDT Office [place] [address] Juanpablo Hernandez MD [facility] [place] [address] 01/30/2025 1:30 PM EDT Laboratory Appointment Lab at [facility] Hematology Oncology [address] [place] [phone] 01/30/2025 3:[address] [place] [address] Arturo Cordero MD [facility] HEMATOLOGY AND ONCOLOGY [place], [place] [phone] 01/30/2025 4:15 PM EDT Office Visit Hematology [place] [address] Arturo Cordero MD [facility] HEMATOLOGY [place] [address] Scheduled Procedures Name Priority Associated Diagnoses Date/Ti [...] mammogram documented in this encounter Care Teams Pilates Instructor Relationship Specialty Start Date End Date Luis E Narayan MD [facility] [address] LILI W[place] [address] PCP - General Family Medicine 03/26/19 01/19/22 documented as of this encounter
--- OUTSIDE RECORDS SUMMARY | 2024-06-07 13:36 | XMS_ITS | Encounter Summary ---
Author Organization [facility] [place] [address] Care Team Providers Care Meter/Relay Craftsman Name Role Phone Daryn Garrett MD Primary Care Provider Reason for Visit * Reason Onset Date Comments Medication Refill 07/02/2021 Encounter Details Date Type Department Care Team (Late st Contact Info) Description 07/02/2021 Refill Family Medicine at [facility] [address] [place] [address] Bonny Emanuel MD [address] [place] [address] Social History Tobacco Use Types Packs/Day Years [...] EST Office Visit Internal Medicine at [address] [place] [address] Daryn Garrett MD [facility] DR LILI [place] [address] 10/02/2024 1:00 PM EDT Office [place] [phone] Juanpablo Hernandez MD [facility] [place] [address] 01/30/2025 1:30 PM EDT Laboratory Appointment Lab at [facility] Hematology Oncology [address] [place] [phone] 01/30/2025 3:[address] [place] [address] Arturo Cordero MD [facility] DR [place] [address] 01/30/2025 4:15 PM EDT Office Visit Hematology [place] [phone] Arturo Cordero MD [facility] DR [place] [address] Scheduled Procedures Name Priority Associated Diagnoses Date/Ti me EGD, UPPER GI ENDOSCOPY (WRV U 2.09) Irritable bowel syndrome with constipation COLONOSCOPY, DIAGNOSTIC (WRV U 3.26) Irritable bowel syndrome with constipation documented as of this encounter Visit Diagnoses Not on filedocumented in this encounter Care Teams Meter/Relay Craftsman Relationship Specialty Start Date End Date Daryn Garrett MD [facility] [address] [place] [address] PCP - General 04/10/24 documented as of this encounter
--- OUTSIDE RECORDS SUMMARY | 2024-06-07 13:36 | XMS_ITS | Encounter Summary ---
Author Organization [facility] [place] [address] Care Team Providers Care Chief Cloth Finishing Range Operator Name Role Phone Luis E Narayan MD Primary Care Provider +1- [phone] Reason for Visit * Reason Comments Leg Swelling Both sides Encounter Details Date Type Department Care Team (Latest Contact Info) Description 08/20/2021 10:40 AM EST Office Visit Family Medicine at [facility] [address] [place] [address] Hair Kelly MD [facility] [address] Edema of lower extremity; Primary osteoarthritis of [...] Diagnosis Code ??? 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 Altered [...] 30 tablet 3 ??? FreeStyle Sanjana 2 [place] Misc 1 each by Other route daily. [...] 0 ??? fluticasone propionate (FLONASE) 50 mcg/actuation [place], Suspension 1 spray by Each Nare route [...] AM EST Office Visit Internal Medicine at [address] [address] Daryn Garrett MD [facility] DR LILI [place] [address] 10/02/2024 1:00 PM EDT Office [place] [phone] Juanpablo Hernandez MD [facility] [place] [address] 01/30/2025 1:30 PM EDT Laboratory Appointment Lab at [facility] Hematology Oncology [address] [place] [phone] 01/30/2025 3:[address] [place] [address] Arturo Cordero MD [facility] HEMATOLOGY [place] [address] 01/30/2025 4:15 PM EDT Office Visit Hematology [place] [phone] Arturo Cordero MD [facility] DR HEMATOLOGY [place] [address] Scheduled Procedures Name Priority Associated Diagnoses Date/Ti me EGD, UPPER GI ENDOSCOPY (WRV U 2.09) Irritable bowel syndrome with constipation COLONOSCOPY, DIAGNOSTIC (WRV U 3.26) Irritable bowel syndrome with constipation documented as of this encounter Visit Diagnoses Diagnosis Edema of lower extremity Edema Primary osteoarthritis of both knees Primary localized osteoarthrosis, lower leg documented in this encounter Care Teams Chief Cloth Finishing Range Operator Relationship Specialty Start Date End Date Luis E Narayan MD [facility] [address] [place] [address] PCP - General Family Medicine 03/26/19 01/19/22 documented as of this encounter
--- OUTSIDE RECORDS SUMMARY | 2024-06-07 13:36 | XMS_ITS | Encounter Summary ---
Author Organization [facility] Address [facility] [place] [address] Care Team Providers Care Manager System Name Role Phone Luis E Narayan MD Primary Care Provider +1- [phone] Reason for Visit * Reason Comments Diabetes Encounter Details Date Type Department Care Team (Late st Contact Info) Description 10/26/2021 10:00 AM EDT Clinical Support Family Medicine at [facility] [address] [place] [address] Julia Low, [facility] Type 2 diabetes mellitus without [...] 1-2x daily\ ?? Sent new Rxs for Superbace CGM to review coverage Follow up plan: ?? Followup call in 2-4 weeks to review tolerance of Rybelsus, CGM coverage,SMBG/CGM data, and encourage lifestyle changes Subjective: Patient ID: Alize Gramjao is a 60 y.o. 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 Lunch: [place] with ham/turkey, Bangladeshi cheese, crisostomo, mustard with Doritos Dinner: Spaghetti [...] transportation options [] Languages other than Moroccan: Cms Expert services provided No [] Allowances for cultural diversity: meal plan will be tailored for cultural food shavon [] Hearing: Cigar Machine Feeder provided No [] Vision impaired: print augmentation [...] 5 ??? fluticasone propionate (Flonase) 50 mcg/actuation [place], Suspension 1 spray by Each Nare route [...] 30 tablet 3 ??? FreeStyle Sanjana 2 [place] Misc 1 each by Other route daily. [...] 06/24/2011 Prescription Insurance: [facility] [id number] Assessment and Recommendations: 1. Diabetes Goals of [...] for the individual, but in general the [place] [employer] recommends a fasting blood sugar [...] 1-2x daily\ ?? Sent new Rxs for VasSol CGM to review coverage Follow up plan: [...] at the appointment and that [facility] is providing recommendations (summary located at top of note) for provider review and follow up. Julia Low RPH 10/26/21 documented in this encounter Plan of Treatment Upcoming Encounters Date Type Department Care Team (Late st Contact Info) Description 06/28/2024 9:30 AM EST Office Visit Internal Medicine at [facility] [address] [place] [phone] Daryn Garrett MD [facility] DR LILI [place] [address] 10/02/2024 1:00 PM EDT [place] [address] Juanpablo Hernandez MD [facility] [place] [place] [address] 01/30/2025 1:30 PM EDT Laboratory Appointment Lab at [facility] Hematology Oncology [address] [place] [phone] 01/30/2025 3:[address] [place] [place] [phone] Arturo Cordero MD [facility] DR [place] [address] 01/30/2025 4:15 PM EDT Office Visit [place]ology [place] [phone] Arturo Cordero MD [facility] DR [place] [address] Scheduled Procedures Name Priority Associated Diagnoses Date/Ti [...] Primary documented in this encounter Care Teams Manager System Relationship Specialty Start Date End Date Luis E Narayan MD [facility] [address] [place] [address] PCP - General Family Medicine 03/26/19 01/19/22 documented as of this encounter
--- OUTSIDE RECORDS SUMMARY | 2024-06-07 13:36 | XMS_ITS | Encounter Summary ---
Author Organization [facility] [place] [address] Care Team Providers Care Hotel And Dining Room Cashier Name Role Phone Luis E Narayan MD Primary Care Provider +1- [phone] Reason for Visit * Reason Onset Date Comments Medication Refill 12/10/2021 Encounter Details Date Type Department Care Team (Late st Contact Info) Description 12/10/2021 Refill Family Medicine at [facility] [address] [place] [phone] Bereket Latham PA [facility] [place] [address] Essential hypertension Social History Tobacco Use Types [...] AM EST Office Visit Internal Medicine at [facility] [address] [place] [address] Daryn Garrett MD [facility] [address] [address] 10/02/2024 1:00 PM EDT Office [place] [phone] Juanpablo Hernandez MD [facility] [place] [address] 01/30/2025 1:30 PM EDT Laboratory Appointment Lab at [facility] Hematology Oncology [address] [place] [phone] 01/30/2025 3:[address] [place] [address] Arturo Cordero MD [facility] DR [place] [address] 01/30/2025 4:15 PM EDT Office Visit Hematology [place] [address] Arturo Cordero MD [facility] [address] [place] [address] Scheduled Procedures Name Priority Associated Diagnoses Date/Ti me EGD, UPPER GI ENDOSCOPY (WRV U 2.09) Irritable bowel syndrome with constipation COLONOSCOPY, DIAGNOSTIC (WRV U 3.26) Irritable bowel syndrome with constipation documented as of this encounter Visit Diagnoses Diagnosis Essential hypertension Unspecified essential hypertension documented in this encounter Care Teams Hotel And Dining Room Cashier Relationship Specialty Start Date End Date Luis E Narayan MD [facility] [address] [place] [address] PCP - General Family Medicine 03/26/19 01/19/22 documented as of this encounter
--- OUTSIDE RECORDS SUMMARY | 2024-06-07 13:36 | XMS_ITS | Encounter Summary ---
Author Organization [facility] Address [facility] [place] [address] Care Team Providers Care Residential Real Estate Appraiser Name Role Phone Luis E Narayan MD Primary Care Provider +1- [phone] Reason for Visit * Reason Onset Date Comments Prior Authorization 08/06/2021 Ozempic (0.2 5 or 0.5 MG/DOSE) 2MG/1.5ML pen-injectors Encounter Details Date Type Department Care Team (Late st Contact Info) Description 08/06/2021 Telephone Family Medicine at [facility] [address] [place] [phone] Aida Aguayo, [facility] Prior Authorization (Ozempic (0.25 or 0.5 MG/DOSE) [...] Awaiting response from insurance. [employer] Anderson: [id number] * Telephone Encounter - Aida Aguayo MA - 08/06/2021 2:08 PM EST PA submitted. Awaiting response from insurance. * Telephone Encounter - Aida Aguayo MA - 08/06/2021 1:55 PM EST Medication Prior Authorization Request received via: [facility] Patient: Alize Gramajo Patient : 1960 Insurance Company: [employer] Sent via: [facility] Anderson: [id number] Physician: Luis E Narayan MD Medication Requested: [...] AM EST Office Visit Internal Medicine at [address] [address] Daryn Garrett MD [facility] DR LILI [place] [address] 10/02/2024 1:00 PM EDT Office [place] [address] Juanpablo Hernandez MD [facility] [place] [address] 01/30/2025 1:30 PM EDT Laboratory Appointment Lab at [facility] Hematology Oncology [address] [place] [phone] 01/30/2025 3:[address] [place] [phone] Arturo Cordero MD [facility] [place]ATOLOG[place] [address] 01/30/2025 4:15 PM EDT Office Visit Hematology [place] [phone] Arturo Cordero MD [facility] H[place]ATOLOG[place] [address] Scheduled Procedures Name Priority Associated Diagnoses Date/Ti me EGD, UPPER GI ENDOSCOPY (WRV U 2.09) Irritable bowel syndrome with constipation COLONOSCOPY, DIAGNOSTIC (WRV U 3.26) Irritable bowel syndrome with constipation documented as of this encounter Visit Diagnoses Not on filedocumented in this encounter Care Teams Residential Real Estate Appraiser Relationship Specialty Start Date End Date Luis E Narayan MD [facility] [address] [place] [address] PCP - General Family Medicine 03/26/19 01/19/22 documented as of this encounter
--- OUTSIDE RECORDS SUMMARY | 2024-06-07 13:36 | XMS_ITS | Encounter Summary ---
[place] [address] Care Team Providers Care Drain Tile Press Operator Name Role Phone Luis E Narayan MD Primary Care Provider [phone] Reason for Visit * Consultation (Routine) - Closed Specialty Diagnoses / Procedures Referred By Gonzalez kumari Referred To Contact Gastroenterology Diagnoses Nonalcoholic hepatosteatosis fatty liver disease Tamera Khan, [facility] DR LILI WALKER-[place] [address] [facility] [address] [place] [address] Referral ID Status Reason Start Date Expiration Date V isits Requested Visits Authorized [id number] Closed Assume Subset of Care 05/31/2021 05/31/2022 1 1 Encounter Details Date Type Department Care Team (Late st Contact Info) Description 07/16/2021 9:00 AM EST Office [place] [address] Sonia Michel, [facility] GASTR[place] [address] NAFLD (nonalcoholic fatty liver disease); [...] HEPATOLOGY NEW PATIENT CONSULTATION Alize Gramajo 1960 SERVICE SUPERINTENDENT: SONIA MICHEL APRN PCP: Luis E Narayan [...] sauce. Had an EGD and Colonoscopy at [facility] this fall, done by Dr. Renetta Coon [...] uses inhalerswith good effect ??? Atherosclerosis of [place] coronary artery of [place] heart with angina pectoris 10/09/2007 History of [...] 11 ??? fluticasone propionate (FLONASE) 50 mcg/actuation [place], Suspension 1 spray by Each Nare route [...] Michel APRN Section of Gastroenterology [place] [address] Copy: Luis E Narayan MD [facility] DR LILI WALKER-F[facility]ILY MEDIC[facility] / [place] N* documented in this encounter Plan of Treatment Upcoming Encounters Date Type Department Care Team (Late st Contact Info) Description 06/28/2024 9:30 AM EST Office Visit Internal Medicine at [address] [address] Daryn Garrett MD [facility] DR LILI WALKER - [place] [address] 10/02/2024 1:00 PM EDT Office [place] [phone] Juanpablo Hernandez MD [facility] [place] [address] 01/30/2025 1:30 PM EDT Laboratory Appointment Lab at [facility] Hematology Oncology [address] [place] [phone] 01/30/2025 3:[address] [place] [phone] Arturo Cordero MD [facility] DR HEMATOLOGY [place] [address] 01/30/2025 4:15 PM EDT Office Visit Hematology and Oncology at [facility] [place] [address] Arturo Cordero MD [facility] DR HEMATOLOGY [place] [address] Scheduled Procedures Name Priority Associated Diagnoses Date/Ti [...] Hemoglobin A1c 8.2(H) 4.3 - 5.6 % [facility] [...] Mellitus, Diabetes Care 2013; 36: Suppl. 1, I77-22 Estimated Average Glucose 188 mg/dL [facility] Comment: eAG [...] into estimated average glucose values. ??Diabetes Care 2008:31(8):2923-6757. Blood 07/16/2021 10:0 7 AM EST 07/16/2021 10:13 AM EST Narrative Resulting Agency Comment Spec In Lab Sonia Michel APRN CHEMISTRY ORDERABL ES [facility] [place] [address] * Hepatitis B Surface Antibody (07/16/2021 10:07 AM EST) Hepatitis B Surface Antibody, Quantitative <3.5 IU/L [facility] Comment: HepB Surface Ab Quant: Unvaccinated: < 8.5 IU/L Vaccinated: > 11.5 IU/L Hepatitis B Surface Antibody Negative [facility] Comment: Patient is presumed to be not vaccinated or immune to HBV infection. Expected Results: Vaccinated: Positive Unvaccinated: Negative Blood 07/16/2021 10:0 7 AM EST 07/16/2021 10:13 AM EST Narrative Resulting Agency Comment Spec In Lab Sonia Sorensen Mere [place] CHEMISTRY ORDERABL ES Performing Organization Address [facility] Phone Number [facility] [place] [address] * Hepatitis B Surface Antigen (07/16/2021 10:07 AM EST) Hepatitis B Surface Antigen Negative Negative [facility] Blood 07/16/2021 10:0 7 AM EST 07/16/2021 10:13 AM EST Narrative Resulting Agency Comment Spec In Lab Sonia Sorensen Mere [place] CHEMISTRY ORDERABL ES Performing Organization Address [facility] Phone Number [facility] [place] [address] * (ABNORMAL) Ferritin (07/16/2021 10:07 AM EST) Pathologist [facility] Ferritin 27(L) 30 - 400 ng/mL [facility] Comment: Pediatric reference ranges not verified at [facility], interpret with caution. Reference ranges for females greater than 50 years of age approach values for men, i.e., 30-400 ng/mL. Blood 07/16/2021 10:0 7 AM EST 07/16/2021 10:13 AM EST Narrative Resulting Agency Comment Spec In Lab Sonia Sorensen Mere [place] CHEMISTRY ORDERABL ES Performing Organization Address [facility] Phone Number [facility] [place] [address] * (ABNORMAL) Iron and TIBC (07/16/2021 10:07 AM EST) Iron 46 30 - 150 mcg/dL [facility] TIBC 368 250 - 450 mcg/dL [facility] Iron Saturation 12(L) 20 - 50 % [facility] Blood 07/16/2021 10:0 7 AM EST 07/16/2021 10:13 AM EST Narrative Resulting Agency Comment Spec In Lab Sonia Michel APRN CHEMISTRY ORDERABL ES [facility] [place] [address] * Comprehensive metabolic panel (non-fasting) (07/16/2021 10:07 AM EST) Pathologist [facility] Glucose 169 65 - 199 mg/dL [facility] Comment:Diabetes: >=200 mg/d L plus symptoms Blood Urea Nitrogen 14 8 - 18 mg/dL [facility] Creatinine 0.81 0.70 - 1.20 mg/dL [facility] Sodium 140 135 - 145 mmol/L [facility] Potassium 4.6 3.5 - 5.0 mmol/L [facility] Comment: Please note: ??Patients with WBC >100,000 may have falsely elevated Potassium levels. ??For accurate Potassium quantification in these patients send serum separator tube (gold top) for subsequent determinations. ??Contact the Clinical Chemistry Laboratory if there are any questions. Chloride 102 98 - 107 mmol/L [facility] Carbon Dioxide 28 22 - 31 mmol/L [facility] Anion Gap 10 5 - 15 mmol/L [facility] Calcium 9.8 8.5 - 10.5 mg/dL [facility] Protein, Total 7.1 6.1 - 8.0 g/dL [facility] Albumin 4.4 3.2 - 5.2 g/dL [facility] Aspartate Aminotransferase 18 0 - 30 unit/L [facility] Alanine Aminotransferase 26 0 - 30 unit/L [facility] Alkaline Phosphatase 102 35 - 105 unit/L [facility] Bilirubin, Total 0.3 0.2 - 1.3 mg/dL [facility] Est Glomerular Filtration Rate 78 >=60 mL/min/1. 73 m?? [facility] Comment: This patient? s [...] Lab Sonia Michel APRN CHEMISTRY ORDERABL ES [facility] [place] [address] documented in this encounter Visit Diagnoses Diagnosis NAFLD (nonalcoholic fatty liver disease) Other chronic nonalcoholic liver disease Type 2 diabetes mellitus without complication, without long-term current use of insulin documented in this encounter Care Teams Drain Tile Press Operator Relationship Specialty Start Date End Date Luis E Narayan MD [facility] [address] [place] [address] PCP - General Family Medicine 03/26/19 01/19/22 documented as of this encounter
--- OUTSIDE RECORDS SUMMARY | 2024-06-07 13:36 | XMS_ITS | Encounter Summary ---
Author Organization [facility] Address [facility] [place] [address] Care Team Providers Care Burglar Alarm Inspector Name Role Phone Luis E Narayan MD Primary Care Provider [phone] Reason for Visit * Reason Comments Diabetes Encounter Details Date Type Department Care Team (Late st Contact Info) Description 11/16/2021 10:00 AM EDT TH Visit (TeleHealth) Family Medicine at [facility] [address] [place] [address] Julia Low, [facility] Type 2 [...] antithrombotic long-term use, Arthritis, Asthma, Atherosclerosis of [place] coronary artery ofnative heart with angina [...] 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 Lunch: [place] with ham/turkey, [place]raini cheese, crisostomo, mustard with Doritos Dinner: Spaghetti [...] area transportation options [] Languages other than Cymro: Lead Burner Apprentice services provided No [] Allowances for cultural diversity: meal plan will be tailored for cultural food shavon [] Hearing: Director Of Planning provided No [] Vision impaired: print augmentation [...] 30 tablet 11 ??? FreeStyle Sanjana 2 [place] Misc 1 each by Other route daily. [...] 5 ??? fluticasone propionate (Flonase) 50 mcg/actuation [place], Suspension 1 spray by Each Nare route [...] , 06/24/2011 Prescription Insurance: [facility] [id number] Assessment and Recommendations: 1. Diabetes Goals of [...] for the individual, but in general the [place] [employer] Association recommends a fasting blood sugar [...] were made at the appointment and that [facility] is providing recommendations (summary located at top of note) for provider review and follow up. Julia Low, [facility] 11/16/21 documented in this encounter Plan of Treatment Upcoming Encounters Date Type Department Care Team (Late st Contact Info) Description 06/28/2024 9:30 AM EST Office Visit Internal Medicine at [facility] [address] [place] [address] Daryn Garrett MD [facility] DR LILI [place] [address] 10/02/2024 1:00 PM EDT Office [place] [phone] Juanpablo Hernandez MD [facility] [place] [address] 01/30/2025 1:30 PM EDT Laboratory Appointment Lab at [facility] Hematology Oncology [address] [place] [phone] 01/30/2025 3:[address] [place] [phone] Arturo Cordero MD [facility] [place] [address] 01/30/2025 4:15 PM EDT Office Visit Hematology [place] [phone] Arturo Cordero MD [facility] DR [place] [address] Scheduled Procedures Name Priority Associated Diagnoses Date/Ti me EGD, UPPER GI ENDOSCOPY (WRV U 2.09) Irritable bowel syndrome with constipation COLONOSCOPY, DIAGNOSTIC (WRV U 3.26) Irritable bowel syndrome with constipation documented as of this encounter Visit Diagnoses Diagnosis Type 2 diabetes mellitus without long-term current use of insulin documented in this encounter Care Teams Burglar Alarm Inspector Relationship Specialty Start Date End Date Luis E Narayan MD [facility] DR LILI WALKER-FAMILY [place] [phone] PCP - General Family Medicine 03/26/19 01/19/22 documented as of this encounter
--- OUTSIDE RECORDS SUMMARY | 2024-06-07 13:36 | XMS_ITS | Encounter Summary ---
[place] [address] Care Team Providers Care Ambulatory Service Representative Name Role Phone Luis E Narayan MD Primary Care Provider [phone] Encounter Details Date Type Department Care Team (Late st Contact Info) Description 12/14/2021 Telephone [place] [phone] Gris Galloway, RN Social History Tobacco Use [...] EGD and colonoscopy performed last year at [facility]. Was seen in [facility] ED recently and PPI changed from [...] [facility] [address] [place] [phone] Daryn Garrett MD [facility] DR LILI [place] [address] 10/02/2024 1:00 PM EDT Office [place] [phone] Juanpablo Hernandez MD [facility] [place] [address] 01/30/2025 1:30 PM EDT Laboratory Appointment Lab at [facility] [place]ematology Oncology [address] [place] [address] 01/30/2025 3:[address] [place] [address] Arturo Cordero MD [facility] [address] [place] [address] 01/30/2025 4:15 PM EDT Office Visit Hematology and Oncology at [place] [phone] Arturo Cordero MD [facility] [address] [place] [address] Scheduled Procedures Name Priority Associated Diagnoses Date/Ti me EGD, UPPER GI ENDOSCOPY (WRV U 2.09) Irritable bowel syndrome with constipation COLONOSCOPY, DIAGNOSTIC (WRV U 3.26) Irritable bowel syndrome with constipation documented as of this encounter Visit Diagnoses Not on filedocumented in this encounter Care Teams Ambulatory Service Representative Relationship Specialty Start Date End Date Luis E Narayan MD [facility] DR LILI [place] [address] PCP - General Family Medicine 03/26/19 01/19/22 documented as of this encounter
--- OUTSIDE RECORDS SUMMARY | 2024-06-07 13:36 | XMS_ITS | Encounter Summary ---
Author Organization [facility] Address [facility] [place] [address] Care Team Providers Care Procurement Services Manager Name Role Phone Daryn Garrett MD Primary Care Provider [phone] Reason for Visit * Reason Onset Date Comments Medication Refill 10/02/2021 Encounter Details Date Type Department Care Team (Late st Contact Info) Description 10/02/2021 Refill Family Medicine at [facility] [address] [place] [address] Luis E Narayan MD [facility] DR LILI [place] [address] Social History Tobacco Use Types Packs/Day Years [...] AM EST Office Visit Internal Medicine at [place] [address] [place] [address] Daryn Garrett MD [facility] DR [place] [address] 10/02/2024 1:00 PM EDT Office [place] [phone] Juanpablo Hernandez MD [facility] [address] 01/30/2025 1:30 PM EDT Laboratory Appointment Lab at [facility] Hematology Oncology [address] [place] [phone] 01/30/2025 3:[address] [place] [address] Arturo Cordero MD [facility] [place] [address] 01/30/2025 4:15 PM EDT Office Visit Hematology [place] [phone] Arturo Cordero MD [facility] [place] [address] Scheduled Procedures Name Priority Associated Diagnoses Date/Ti me EGD, UPPER GI ENDOSCOPY (WRV U 2.09) Irritable bowel syndrome with constipation COLONOSCOPY, DIAGNOSTIC (WRV U 3.26) Irritable bowel syndrome with constipation documented as of this encounter Visit Diagnoses Not on filedocumented in this encounter Care Teams Procurement Services Manager Relationship Specialty Start Date End Date Daryn Garrett MD [facility] [address] [place] [address] PCP - General 04/10/24 documented as of this encounter
--- OUTSIDE RECORDS SUMMARY | 2024-06-07 13:36 | XMS_ITS | Encounter Summary ---
Author Organization [facility] [place] [address] Care Team Providers Care Blasting Gang Miner Name Role Phone Luis E Narayan MD Primary Care Provider Reason for Referral * Diagnostic Test (Routine) - Closed Specialty Diagnoses / Procedures Referred By Contac t Referred To Contact Radiology Diagnoses Malignant melanoma of conjunctiva, left Malignant melanoma, unspecified site Procedures CT Neck Soft Tissue w Contrast (Generic) Leandra Lopes APRN [facility] DR [place] [address] [facility] [place] [address] Referral ID Status Reason Start Date Expiration Date V isits Requested Visits Authorized [id number] Closed Specialty Service Requested 12/23/2021 07/09/2022 1 1 * Diagnostic Test (Routine) - Closed Specialty Diagnoses / Procedures Referred By Contac t Referred To Contact Radiology Diagnoses Malignant melanoma of conjunctiva, left Malignant melanoma, unspecified site Procedures CT Chest Abdomen Pelvis w Contrast (Generic) Leandra Lopes APRN [facility] DR [place] [address] [facility] [place] [address] Referral ID Status Reason Start Date Expiration Date V isits Requested Visits Authorized [id number] Closed Specialty Service Requested 12/23/2021 07/09/2022 1 1 Reason for Visit * Diagnostic Test (Routine) - Closed Specialty Diagnoses / Procedures Referred By Contchrissy t Referred To Contact Radiology Diagnoses Malignant melanoma of conjunctiva, left Malignant melanoma, unspecified site Procedures CT Chest Abdomen Pelvis w Contrast (Generic) Leandra Lopes APRN [facility] DR [place] [address] [facility] [place] [address] Referral ID Status Reason Start Date Expiration Date V isits Requested Visits Authorized [id number] Closed Specialty Service Requested 12/23/2021 07/09/2022 1 1 Encounter Details Date Type Department Care Team (Late st Contact Info) Description 12/23/2021 12:07 PM EDT - 12/23/2021 12:34 PM EDT Hospital [place] [address] Leandra Lopes APRN [facility] DR [place] [address] Malignant melanoma of conjunctiva, left; [...] each 11 12/10/2021 02/04/2023 FreeStyle Sanjana 2 [place] MiscIndications:diabetes mellitus 1 each by Other route [...] 10/01/2021 01/29/2022 fluticasone propionate (Flonase) 50 mcg/actuation [place], Suspension 1 spray by Each Nare route [...] EST Office Visit Internal Medicine at [address] [address] Daryn Garrett MD [facility] DR LILI [place] [address] 10/02/2024 1:00 PM EDT Office [place] [address] Juanpablo Hernandez MD [facility] [place] [address] 01/30/2025 1:30 PM EDT Laboratory Appointment Lab at [facility] Hematology Oncology [address] [place] [phone] 01/30/2025 3:[address] [place] [address] Arturo Cordero MD [facility] [place] [address] 01/30/2025 4:15 PM EDT Office Visit [place]ology [place] [address] Arturo Cordero MD [facility] DR [place] [address] Scheduled Procedures Name Priority Associated Diagnoses Date/Ti [...] therapist that requested your imaging first. ? Electronically signed by: Davin Corbett MD, [facility] ([phone]), at 12/24/2021 8:15 AM Narrative 12/24/2021 8:15 [...] first. Electronically signed by: Davin Corbett MD, [facility]([phone]), at 12/24/2021 8:15 AM Leandra Lopes APRN [...] therapist that requested your imaging first. ? Electronically signed by: Milo Kaye MD, [facility] ([phone]), at 12/23/2021 3:09 PM Narrative 12/23/2021 3:09 [...] physical therapist that requested your imaging first. Leandra Lopes APRN [facility] ORDERABLES documented in this [...] mLs documented in this encounter Care Teams Blasting Gang Miner Relationship Specialty Start Date End Date Luis E Narayan MD [facility] [place] [address] PCP - General Family Medicine 03/26/19 01/19/22 documented as of this encounter
--- OUTSIDE RECORDS SUMMARY | 2024-06-07 13:36 | XMS_ITS | Encounter Summary ---
Author Organization [facility] Address [facility] [place] [address] Care Team Providers Care Master Control Engineer Name Role Phone Rodney Padilla MD Primary Care Provider Reason for Visit * Reason Onset Date Comments Medication Refill 10/11/2021 Encounter Details Date Type Department Care Team (Late st Contact Info) Description 10/11/2021 Refill Family Medicine at [facility] [address] [place] [address] Luis E Narayan MD [facility] DR LILI [place] [address] Type 2 diabetes mellitus without long-term current [...] EST Office Visit Internal Medicine at [facility] [address] [place] [address] Daryn Garrett MD [facility] DR LIL[place] [address] 10/02/2024 1:00 PM EDT Office [place] [phone] Juanpablo Hernandez MD [facility] [place] [address] 01/30/2025 1:30 PM EDT Laboratory Appointment Lab at [facility] Hematology Oncology [address] [place] [phone] 01/30/2025 3:[address] [place] [phone] Arturo Cordero MD [facility] [place] [address] 01/30/2025 4:15 PM EDT Office Visit Hematology [place] [phone] Arturo Cordero MD [facility] [address] [place] [address] Scheduled Procedures Name Priority Associated Diagnoses Date/Ti ak EGD, UPPER GI ENDOSCOPY (WRV U 2.09) Irritable bowel syndrome with constipation COLONOSCOPY, DIAGNOSTIC (WRV U 3.26) Irritable bowel syndrome with constipation documented as of this encounter Visit Diagnoses Diagnosis Type 2 diabetes mellitus without long-term current use of insulin documented in this encounter Care Teams Master Control Engineer Relationship Specialty Start Date End Date Rodney Padilla MD PCP - General 07/18/22 04/09/24 documented as of this encounter
--- OUTSIDE RECORDS SUMMARY | 2024-06-07 13:36 | XMS_ITS | Encounter Summary ---
Author Organization [facility] Address One [facility] [place] [address] Care Team Providers Care Tennis Desk Team Member Name Role Phone Luis E Narayan MD Primary Care Provider [phone]- [phone] Reason for Visit * Reason Comments Diabetes Encounter Details Date Type Department Care Team (Late st Contact Info) Description 08/26/2021 2:30 PM EST TH Visit (TeleHealth) Family Medicine at [facility] [address] [place] [address] Julia Low, [facility] Type 2 diabetes mellitus without long-term [...] Julia Low RPH + Alba Anderson P4 Hot Dip Tinning Supervisor Visit Type: Telehealth Phone Diabetes Mellitus (DM) [...] antithrombotic long-term use, Arthritis, Asthma, Atherosclerosis of crow 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 [...] 134 Highest 182 Daily Avg 157 eA1c [id number] Acute Complications Have you ever had a [...] to eat eggs every day. Lunch: [place] with ham/turkey, [place] cheese, crisostomo, mustard with Doritos Dinner: Spaghetti [...] area transportation options [] Languages other than Peruvian: Meterman services provided No [] Allowances for cultural diversity: meal plan will be tailored for cultural food shavon [] Hearing: Evaluation Analyst provided No [] Vision impaired: print augmentation [...] 30 tablet 3 ??? FreeStyle Sanjana 2 [place] Misc 1 each by Other route daily. [...] 0 ??? fluticasone propionate (FLONASE) 50 mcg/actuation [place], Suspension 1 spray by Each Nare route [...] TDAP 04/09/2019 , 06/24/2011 Prescription Insurance: [facility] [id number] Assessment and Recommendations: 1. Diabetes Goals of [...] for the individual, but in general the [place] Diabetes Association recommends a fasting blood sugar [...] AM EST Office Visit Internal Medicine at [address] [phone] Daryn Garrett MD [facility] [address] 10/02/2024 1:00 PM EDT Office [place] [address] Juanpablo Hernandez MD [facility] [place] [address] 01/30/2025 1:30 PM EDT Laboratory Appointment Lab at [facility] Hematology Oncology [address] [place] [phone] 01/30/2025 3:[address] [place] [phone] Arturo Cordero MD [facility] DR [place] [address] 01/30/2025 4:15 PM EDT Office Visit Hematology [place] [address] Arturo Cordero MD [facility] DR [place] [address] Scheduled Procedures Name Priority Associated Diagnoses Date/Ti me EGD, UPPER GI ENDOSCOPY (WRV U 2.09) Irritable bowel syndrome with constipation COLONOSCOPY, DIAGNOSTIC (WRV U 3.26) Irritable bowel syndrome with constipation documented as of this encounter Visit Diagnoses Diagnosis Type 2 diabetes mellitus without long-term current use of insulin documented in this encounter Care Teams Tennis Desk Team Member Relationship Specialty Start Date End Date Luis E Narayan MD [facility] [address] [place] [address] PCP - General Family Medicine 03/26/19 01/19/22 documented as of this encounter
--- OUTSIDE RECORDS SUMMARY | 2024-06-07 13:36 | XMS_ITS | Encounter Summary ---
Author Organization [facility] Address One [facility] [place] [address] Care Team Providers Care Microsoft Dynamics Consultant Name Role Phone Luis E Narayan MD Primary Care Provider [phone]- [phone] Reason for Visit * Reason Comments Diabetes Encounter Details Date Type Department Care Team (Late st Contact Info) Description 09/09/2021 2:00 PM EST TH Visit (TeleHealth) Family Medicine at [facility] [address] [place] [address] Julia Low, [facility] Type 2 diabetes mellitus without long-term current [...] antithrombotic long-term use, Arthritis, Asthma, Atherosclerosis of [place] 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 [...] referred for DM appointment by Luis E Naryaan MD for medication management and education. Allergies [...] VPharm is active she is able to roller picker the med tomorrow. Also Spoke to [...] 149 Highest 188 Daily Avg 168 eA1c [phone] Prior Averages: 08/26/21 AM Average 157 Lowest 134 Highest 182 Daily Avg 157 eA1c [phone] Acute Complications Have you ever had a [...] enough to eat eggs every day. Lunch: [place] with ham/turkey, [place] cheese, crisostomo, mustard with Doritos Dinner: Spaghetti [...] area transportation options [] Languages other than Kazakh: Solar Electric/Photovoltaic Installer services provided No [] Allowances for cultural diversity: meal plan will be tailored for cultural food shavon [] Hearing: Insulator Cutter And Former provided No [] Vision impaired: print augmentation [...] 30 tablet 3 ??? FreeStyle Sanjana 2 [place] Misc 1 each by Other route daily. [...] 0 ??? fluticasone propionate (FLONASE) 50 mcg/actuation [place], Suspension 1 spray by Each Nare route [...] 06/24/2011 Prescription Insurance: [facility] [id number] Assessment and Recommendations: 1. Diabetes Goals of [...] now sortedout and shoul calin vazquez to roller picker Ozempic to start tomorrow o Denies [...] for the individual, but in general the [place] Diabetes Association recommends a fasting blood sugar [...] were made at the appointment and that [facility] is providing recommendations (summary located at top of note) for provider review and follow up. Julia Low RPH 09/09/21 documented in this encounter Plan of Treatment Upcoming Encounters Date Type Department Care Team (Late st Contact Info) Description 06/28/2024 9:30 AM EST Office Visit Internal Medicine at [place] [address] [place] [phone] Daryn Garrett MD [facility] [place] [address] 10/02/2024 1:00 PM EDT Office [place] [phone] Juanpablo Hernandez MD [facility] [place] [address] 01/30/2025 1:30 PM EDT Laboratory Appointment Lab at [facility] Hematology Oncology [address] [place] [phone] 01/30/2025 3:[address] [place] [address] Arturo Cordero MD [facility] DR HEMATOLOGY AND ONCOLOGY [place], [place] [phone] 01/30/2025 4:15 PM EDT Office Visit [place] [address] Arturo Cordero MD [facility] [place] [address] Scheduled Procedures Name Priority Associated Diagnoses Date/Ti me EGD, UPPER GI ENDOSCOPY (WRV U 2.09) Irritable bowel syndrome with constipation COLONOSCOPY, DIAGNOSTIC (WRV U 3.26) Irritable bowel syndrome with constipation documented as of this encounter Visit Diagnoses Diagnosis Type 2 diabetes mellitus without long-term current use of insulin documented in this encounter Care Teams Microsoft Dynamics Consultant Relationship Specialty Start Date End Date Luis E Narayan MD [facility] [address] [place] [address] PCP - General Family Medicine 03/26/19 01/19/22 documented as of this encounter
--- OUTSIDE RECORDS SUMMARY | 2024-06-07 13:36 | XMS_ITS | Encounter Summary ---
Author Organization [facility] Address [facility] [place] [address] Care Team Providers Care Biomass Power Plant Superintendent Name Role Phone Luis E Narayan MD Primary Care Provider [phone] Reason for Visit * Reason Onset Date Comments Medication Refill 12/10/2021 Encounter Details Date Type Department Care Team (Late st Contact Info) Description 12/10/2021 Refill Family Medicine at [facility] [address] [place] [address] Luis E Narayan MD [facility] [address] LILI WALKER[place] [address] COPD Social History Tobacco Use Types Packs/Day [...] AM EST Office Visit Internal Medicine at [facility] [address] [place] [address] Daryn Garrett MD [facility] [address] LILI WALKER [place] [address] 10/02/2024 1:00 PM EDT Office Visit Ophthalmology at [place] [phone] Juanpablo Hernandez MD [facility] [place] [address] 01/30/2025 1:30 PM EDT Laboratory Appointment Lab at [facility] Hematology Oncology [address] [place] [phone] 01/30/2025 3:[address] Scan at [place] [phone] Arturo Cordero MD [facility] DR HEMATOLOGY [place] [address] 01/30/2025 4:15 PM EDT Office Visit Hematology and Oncology at [place] [phone] Arturo Cordero MD [facility] [address] HEMATOLOGY [place] [address] Scheduled Procedures Name Priority Associated Diagnoses Date/Ti me EGD, UPPER GI ENDOSCOPY (WRV U 2.09) Irritable bowel syndrome with constipation COLONOSCOPY, DIAGNOSTIC (WRV U 3.26) Irritable bowel syndrome with constipation documented as of this encounter Visit Diagnoses Diagnosis COPD Simple chronic bronchitis documented in this encounter Care Teams Biomass Power Plant Superintendent Relationship Specialty Start Date End Date Luis E Narayan MD [facility] [address] LIL[address] WALK[place] [address] PCP - General Family Medicine 03/26/19 01/19/22 documented as of this encounter
--- OUTSIDE RECORDS SUMMARY | 2024-06-07 13:36 | XMS_ITS | Encounter Summary ---
Author Organization [facility] Address [facility] [place] [address] Care Team Providers Care Derrick Boat Operator Name Role Phone Luis E Narayan MD Primary Care Provider [phone] Reason for Visit * Reason Comments Diabetes * Consultation (Routine) - Closed Specialty Diagnoses / Procedures Referred By Gonzalez kumari Referred To Contact Family Medicine Diagnoses Type 2 diabetes mellitus with other specified complication, without long-term current use of insulin Tamera Khan, WOOD CAR BUILDER [facility] [address] LILI [place] [address] Julia Low [facility] Referral ID Status Reason Start Date Expiration Date V isits Requested Visits Authorized [id number] Closed Assume Subset of Care 06/14/2021 06/14/2022 1 1 Encounter Details Date Type Department Care Team (Late st Contact Info) Description 07/27/2021 11:00 AM EST Clinical Support Family Medicine at [facility] [address] [place] [address] Julia Low [facility] Type [...] mg BID ?? Sent testing supplies to [employer] ?? Will recommend Ozempic 0.25 mg once [...] antithrombotic long-term use, Arthritis, Asthma, Atherosclerosis of [place]oug[place] 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 [...] # of Missed doses/week None - Uses [employer] [facility] - rx insurance [facility] [id number] - Needs testing supplies - would prefer [...] not want to eat every day Lunch: [place] with ham/turkey yemeni cheese crisostomo and mustard with Doritos Dinner: [...] area transportation options [] Languages other than Kyrgyz: Audio Visual Collections Coordinator services provided No [] Allowances for cultural diversity: meal plan will be tailored for cultural food shavon [] Hearing: Pulverizer provided No [] Vision impaired: print augmentation [...] 180 tablet 1 ??? FreeStyle Sanjana 2 [place] Misc 1 each by Other route daily. [...] 0 ??? fluticasone propionate (FLONASE) 50 mcg/actuation [place], Suspension 1 spray by Each Nare route [...] 09/07/2005 TDAP 04/09/2019 , 06/24/2011 Prescription Insurance: [facility] [id number] Assessment and Recommendations: 1. Diabetes Goals of [...] mg BID ?? Sent testing supplies to [employer] ?? Will recommend Ozempic 0.25 mg once [...] made at the appointment and that [facility] is providing recommendations (summary located at top of note) for provider review and follow up. Julia Low RP 07/27/21 documented in this encounter Plan of Treatment Upcoming Encounters Date Type Department Care Team (Late st Contact Info) Description 06/28/2024 9:30 AM EST Office Visit Internal Medicine at [address] [phone] Daryn Garrett MD [facility] DR [place] [address] 10/02/2024 1:00 PM EDT Office [place] [phone] Juanpablo Hernandez MD [facility] [place] [address] 01/30/2025 1:30 PM EDT Laboratory Appointment Lab at [facility] [place] Oncology [address] [place] [phone] 01/30/2025 3:[address] [place] [phone] Arturo Cordero MD [facility] [place] [address] 01/30/2025 4:15 PM EDT Office Visit Hematology [place] [phone] Arturo Cordero MD [facility] [place] [address] Scheduled Procedures Name Priority Associated Diagnoses Date/Ti me EGD, UPPER GI ENDOSCOPY (WRV U 2.09) Irritable bowel syndrome with constipation COLONOSCOPY, DIAGNOSTIC (WRV U 3.26) Irritable bowel syndrome with constipation documented as of this encounter Visit Diagnoses Diagnosis Type 2 diabetes mellitus without long-term current use of insulin- Primary documented in this encounter Care Teams Derrick Boat Operator Relationship Specialty Start Date End Date Luis E Narayan MD [facility] DR LIL[address] [place] [address] PCP - General Family Medicine 03/26/19 01/19/22 documented as of this encounter
--- OUTSIDE RECORDS SUMMARY | 2024-06-07 13:36 | XMS_ITS | Encounter Summary ---
Author Organization [facility] Address [facility] [place] [address] Care Team Providers Care Commercial Litigation Associate Name Role Phone Daryn Garrett MD Primary Care Provider [phone] Reason for Visit * Reason Onset Date Comments Medication Refill 09/08/2021 Encounter Details Date Type Department Care Team (Late st Contact Info) Description 09/08/2021 Refill Family Medicine at [facility] [address] [place] [address] Luis E Narayan MD [facility] DR LILI WALKER[place] [address] Social History Tobacco Use Types Packs/Day Years [...] AM EST Office Visit Internal Medicine at [place] [address] [place] [address] Daryn Garrett MD [facility] DR LILI WALKER [place] [address] 10/02/2024 1:00 PM EDT Office [place] [phone] Juanpablo Hernandez MD [facility] [place] [address] 01/30/2025 1:30 PM EDT Laboratory Appointment Lab at [facility] [place]ematology Oncology [address] [place] [phone] 01/30/2025 3:[address] [place] [address] Arturo Cordero MD [facility] DR HEMATOLOGY [place] [address] 01/30/2025 4:15 PM EDT Office Visit Hematology [place] [phone] Arturo Cordero MD [facility] DR HEMATOLOGY [place] [address] Scheduled Procedures Name Priority Associated Diagnoses Date/Ti me EGD, UPPER GI ENDOSCOPY (WRV U 2.09) Irritable bowel syndrome with constipation COLONOSCOPY, DIAGNOSTIC (WRV U 3.26) Irritable bowel syndrome with constipation documented as of this encounter Visit Diagnoses Not on filedocumented in this encounter Care Teams Commercial Litigation Associate Relationship Specialty Start Date End Date Daryn Garrett MD [facility] [address] [place] [address] PCP - General 04/10/24 documented as of this encounter
--- OUTSIDE RECORDS SUMMARY | 2024-06-07 13:36 | XMS_ITS | Encounter Summary ---
Author Organization [facility] [place] [address] Care Team Providers Care Converting Operator Name Role Phone Luis E Narayan MD Primary Care Provider [phone] Encounter Details Date Type Department Care Team (Late st Contact Info) Description 11/17/2021 11:19 AM EDT - 11/17/2021 11:59 PM EDT Hospital [place] [address] Leandra Black, BRICK PAVER [facility] [address] [place] [address] Malignant melanoma of conjunctiva, left; Malignant melanoma, [...] each 3 11/07/2022 11/02/2023 FreeStyle Sanjana 2 [place] MiscIndications:diabetes mellitus 1 each by Other route [...] 10/01/2021 01/29/2022 fluticasone propionate (Flonase) 50 mcg/actuation [place], Suspension 1 spray by Each Nare route [...] EST Office Visit Internal Medicine at [address] [phone] Daryn Garrett MD [facility] [address] [place] [address] 10/02/2024 1:00 PM EDT Office [place] [phone] Juanpablo Hernandez MD [facility] [place] [address] 01/30/2025 1:30 PM EDT Laboratory Appointment Lab at [facility] Hematology Oncology [address] [place] [phone] 01/30/2025 3:[address] [place] [place] [address] Arturo Cordero MD [facility] [place] [address] 01/30/2025 4:15 PM EDT Office Visit [place]ology [place] [address] Arturo Cordero MD [facility] [place] [address] Scheduled Procedures Name Priority Associated Diagnoses Date/Ti [...] have questions, please contact the health care center manager that requested your imaging first. ? Nakia Goetz, Staff Physician Electronically Signed Final Report ?? 11/17/2021 11:59 am Narrative 11/17/2021 12:00 PM EDT Ultrasound Soft Tissue ?(Signed Final 11/17/2021 11:59 am) Neck Left PATIENT INFO: ID #: ? [id number] ?: ??[birth year] (61 yrs)(F) Name: ? ALIZE MANJARREZ ? Visit Date: 11/17/2021 11:42 am PERFORMED BY: Performed By: ? Diana Lowe RDMS Attending: ?Sofy COLVIN, Nakia Andrade Referred By: ?LEANDRA BLACK Location: ? [facility] SERVICE(S) PROVIDED: USTN - Soft Tissue Neck or Head - [id number] ? [id number] INDICATIONS: History of left eye conjunctival melanoma [...] am) Neck Left PATIENT INFO: ID #: [id number] : 58 (61 yrs)(F) Name: ALIZE MANJARREZ Visit Date: 11/17/2021 11:42 am PERFORMED BY: Performed By: Diana Lowe RDMS Attending: Nakia Goetz MD Referred By: LEANDRA BLACK Location: [facility] SERVICE(S) PROVIDED: USTN - Soft Tissue Neck or Head - [id number] INDICATIONS: History of left eye conjunctival melanoma [...] have questions, please contact the health care center manager that requested your imaging first. Nakia Goetz, Staff Physician Electronically Signed Final Report 11/17/2021 11:59 am Leandra Black APRN IMG US GEN ORDERAB LES documented in this encounter Visit Diagnoses Diagnosis Malignant melanoma of conjunctiva, left Malignant melanoma, unspecified site documented in this encounter Care Teams Converting Operator Relationship Specialty Start Date End Date Luis E Narayan MD [facility] DR LIL[place] [address] PCP - General Family Medicine 03/26/19 01/19/22 documented as of this encounter
--- OUTSIDE RECORDS SUMMARY | 2024-06-07 13:36 | XMS_ITS | Encounter Summary ---
Author Organization [facility] [place] [address] Care Team Providers Care Nursing Resident Name Role Phone Luis E Narayan MD Primary Care Provider Encounter Details Date Type Department Care Team (Late st Contact Info) Description 08/19/2021 Telephone Family Medicine at [address] [place] [phone] Thomas Tyson, RN Social History Tobacco Use [...] [] Established patient [] Will be in [place] or [place] at time of visit [] Has access to Internet smart phone or computer with camera [] Would need phone visit HTI Screen: MUST be TH [] cough or fever AND Travelled internationally in past month to [facility] or [place] [] COVID-19 symptoms and unvaccinated [...] AM EST Office Visit Internal Medicine at [facility] [address] [place] [address] Daryn Garrett MD [facility] DR LILI [place]ER [place] [address] 10/02/2024 1:00 PM EDT Office Visit Ophthalmology at [place] [phone] Juanpablo Hernandez MD [facility] [place] [address] 01/30/2025 1:30 PM EDT Laboratory Appointment Lab at [facility] Hematology Oncology [address] [place] [address] 01/30/2025 3:[address] Scan at [place] [phone] Arturo Cordero MD [facility] DR HEMATOLOGY [place] [address] 01/30/2025 4:15 PM EDT Office Visit Hematology [place] [address] Arturo Cordero MD [facility] DR HEMATOLOGY [place] [address] Scheduled Procedures Name Priority Associated Diagnoses Date/Ti me EGD, UPPER GI ENDOSCOPY (WRV U 2.09) Irritable bowel syndrome with constipation COLONOSCOPY, DIAGNOSTIC (WRV U 3.26) Irritable bowel syndrome with constipation documented as of this encounter Visit Diagnoses Not on filedocumented in this encounter Care Teams Nursing Resident Relationship Specialty Start Date End Date Luis E Narayan MD [facility] DR LILI WALKER[place] [address] PCP - General Family Medicine 03/26/19 01/19/22 documented as of this encounter
--- OUTSIDE RECORDS SUMMARY | 2024-06-07 13:36 | XMS_ITS | Encounter Summary ---
Author Organization [facility] Address One [facility] [place] [address] Care Team Providers Care Plant Protection Supervisor Name Role Phone Luis E Narayan MD Primary Care Provider [phone]- [phone] Reason for Visit * Reason Comments Diabetes Encounter Details Date Type Department Care Team (Late st Contact Info) Description 08/06/2021 11:00 AM EST TH Visit (TeleHealth) Family Medicine at [facility] [address] [place] [address] Julia Low, [facility] Type 2 [...] antithrombotic long-term use, Arthritis, Asthma, Atherosclerosis of [place] 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 [...] # of Missed doses/week None - Uses [employer] drug - rx insurance [facility] [id number] - Needs testing supplies - would prefer oral therapies to injections although admits she could learn to take an injectable med Medication changes made at last visit: ?? Continue metformin 1000 mg BID ?? Sent testing supplies to [employer] ([employer]) ?? Will recommend Ozempic 0.25 mg once [...] cause hypoglycemia in the afternoon SMBG: Prescribed Mazoomyle Sanjana CGM But still can not find. [...] not want to eat every day Lunch: Altheimer with ham/turkey sammarinese cheese crisostomo and mustard with Doritos Dinner: [...] area transportation options [] Languages other than Paraguayan: Back Up Worker services provided No [] Allowances for cultural diversity: meal plan will be tailored for cultural food shavon [] Hearing: Sales Estimator provided No [] Vision impaired: print augmentation [...] 30 tablet 3 ??? FreeStyle Sanjana 2 [place] Misc 1 each by Other route daily. [...] 0 ??? fluticasone propionate (FLONASE) 50 mcg/actuation [place], Suspension 1 spray by Each Nare route [...] 09/07/2005 TDAP 04/09/2019 , 06/24/2011 Prescription Insurance: [facility] [id number] Assessment and Recommendations: 1. Diabetes Goals of [...] [facility] [address] [place] [phone] Daryn Garrett MD [facility] DR LILI [place] [address] 10/02/2024 1:00 PM EDT Office [place] [phone] Juanpablo Hernandez MD [facility] [place] [address] 01/30/2025 1:30 PM EDT Laboratory Appointment Lab at [facility] Hematology Oncology [address] [place] [phone] 01/30/2025 3:[address] [place] [phone] Arturo Cordero MD [facility] DR HEMATOLOGY [place] [address] 01/30/2025 4:15 PM EDT Office Visit Hematology [place] [phone] Arturo Cordero MD [facility] DR HEMATOLOGY [place] [address] Scheduled Procedures Name Priority Associated Diagnoses Date/Ti me EGD, UPPER GI ENDOSCOPY (WRV U 2.09) Irritable bowel syndrome with constipation COLONOSCOPY, DIAGNOSTIC (WRV U 3.26) Irritable bowel syndrome with constipation documented as of this encounter Visit Diagnoses Diagnosis Type 2 diabetes mellitus without long-term current use of insulin- Primary documented in this encounter Care Teams Plant Protection Supervisor Relationship Specialty Start Date End Date Luis E Narayan MD [facility] [address] LILI W[place] [address] PCP - General Family Medicine 03/26/19 01/19/22 documented as of this encounter
--- OUTSIDE RECORDS SUMMARY | 2024-06-07 13:37 | XMS_ITS | Encounter Summary ---
Author Organization [facility] Address [facility] [place] [address] Care Team Providers Care Transit Planning Manager Name Role Phone Luis E Narayan MD Primary Care Provider [phone]- [phone] Reason for Visit * Reason Onset Date Comments Medication Refill 06/19/2021 Encounter Details Date Type Department Care Team (Late st Contact Info) Description 06/19/2021 Refill Family Medicine at [facility] [address] [place] [address] Luis E Narayan MD [facility] DR LILI [place] [address] Mixed hyperlipidemia Social History Tobacco Use Types [...] AM EST Office Visit Internal Medicine at [facility] [address] [place] [address] Daryn Garrett MD [facility] DR LIL[place] [address] 10/02/2024 1:00 PM EDT Office [place] [phone] Juanpablo Hernandez MD [facility] [place] [address] 01/30/2025 1:30 PM EDT Laboratory Appointment Lab at [facility] Hematology Oncology [address] [place] [phone] 01/30/2025 3:[address] [place] [address] Arturo Cordero MD [facility] [place] [address] 01/30/2025 4:15 PM EDT Office Visit Hematology [place] [address] Arturo Cordero MD [facility] [place] [address] Scheduled Procedures Name Priority Associated Diagnoses Date/Ti me EGD, UPPER GI ENDOSCOPY (WRV U 2.09) Irritable bowel syndrome with constipation COLONOSCOPY, DIAGNOSTIC (WRV U 3.26) Irritable bowel syndrome with constipation documented as of this encounter Visit Diagnoses Diagnosis Mixed hyperlipidemia documented in this encounter Care Teams Transit Planning Manager Relationship Specialty Start Date End Date Luis E Narayan MD [facility] [address] [place] [address] PCP - General Family Medicine 03/26/19 01/19/22 documented as of this encounter
--- OUTSIDE RECORDS SUMMARY | 2024-06-07 13:37 | XMS_ITS | Encounter Summary ---
Author Organization [facility] [place] [address] Care Team Providers Care Kitchen Work Supervisor Name Role Phone Luis E Narayan MD Primary Care Provider [phone] Encounter Details Date Type Department Care Team (Late st Contact Info) Description 06/16/2021 Telephone Family Medicine at [address] [place] [phone] Thania Flores, RN Social History Tobacco Use [...] my dh message. The call backnumber is [phone]. * Telephone Encounter - Thania Flores RN [...] EST Office Visit Internal Medicine at [facility] [address] [place] [address] Daryn Garrett MD [facility] DR LILI [place] [address] 10/02/2024 1:00 PM EDT Office Visit Ophthalmology at [place] [phone] Juanpablo Hernandez MD [facility] [place] [address] 01/30/2025 1:30 PM EDT Laboratory Appointment Lab at [facility] Hematology Oncology [address] [place], [place] [phone] 01/30/2025 3:[address] Scan at [place] [phone] Arturo Cordero MD [facility] DR HEMATOLOGY [place] [address] 01/30/2025 4:15 PM EDT Office Visit Hematology and Oncology at [place] [phone] Arturo Cordero MD [facility] DR HEMATOLOGY [place] [address] Scheduled Procedures Name Priority Associated Diagnoses Date/Ti me EGD, UPPER GI ENDOSCOPY (WRV U 2.09) Irritable bowel syndrome with constipation COLONOSCOPY, DIAGNOSTIC (WRV U 3.26) Irritable bowel syndrome with constipation documented as of this encounter Visit Diagnoses Not on filedocumented in this encounter Care Teams Kitchen Work Supervisor Relationship Specialty Start Date End Date Luis E Narayan MD [facility] DR LILI WALKER[place] [address] PCP - General Family Medicine 03/26/19 01/19/22 documented as of this encounter
--- OUTSIDE RECORDS SUMMARY | 2024-06-07 13:37 | XMS_ITS | Encounter Summary ---
[place] [address] Care Team Providers Care Electrician Marine Name Role Phone Luis E Narayan MD Primary Care Provider Reason for Referral * Diagnostic Test (Routine) - Closed Specialty Diagnoses / Procedures Referred By Gonzalez kumari Referred To Contact Radiology Diagnoses Malignant melanoma of conjunctiva, left Procedures CT Chest Abdomen Pelvis w Contrast (Generic) Leandra Black APRN [facility] DR HEMATOLOGY [place] [address] [facility] [place] [address] Referral ID Status Reason Start Date Expiration Date V isits Requested Visits Authorized [id number] Closed Specialty Service Requested 12/17/2020 06/18/2022 1 1 Reason for Visit * Reason Comments Follow-up Encounter Details Date Type Department Care Team (Late st Contact Info) Description 12/17/2020 3:45 PM EDT Office Visit [place] [phone] Arturo Cordero MD [facility] DR HEMATOLOGY [place] [address] Leandra Black APRN [facility] HEMATOLOGY [place] [address] Malignant melanoma of conjunctiva, left; History of [...] from the original note were not included. [facility] FOLLOW UP NOTE REFERING PHYSICIAN: [...] management - fall 2018: saw a new roller coaster operator and was referred to Dr. 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 Medina - 03/31/2020: saw her roller coaster operator Dr. Hernandez and was noted to [...] good effect ??? 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 PRO EXCIS CORNEA LESN Left 05/14/2020 EXCISION OF LESION, CORNEA, EXCEPT PTERYGIUM (WRVU 7.5) performed by Juanpablo Hernandez MD at [facility] ??? PRO LAP, PARTIAL NEPHRECTOMY Left 06/28/2019 LAPAROSCOPY, PARTIAL NEPHRECTOMY, ROBOTIC ASSIST (WRVU 27.41) performed by Avila Medina MD at [facility] ??? 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 Leandra Black DNP, TURNER SPLITTER MACHINE OPERATOR Return in 3 mos for stand alone US RTC in 6 mos with labs, clinic appointment and CT scan documented in this encounter Plan of Treatment Upcoming Encounters Date Type Department Care Team (Late st Contact Info) Description 06/28/2024 9:30 AM EST Office Visit Internal Medicine at [address] [phone] Daryn Garrett MD [facility] LILI WALKER - [place] [address] 10/02/2024 1:00 PM EDT Office [place] [phone] Junapablo Hernandez MD [facility] [place] [place] [address] 01/30/2025 1:30 PM EDT Laboratory Appointment Lab at [facility] Hematology Oncology [address] [place] [phone] 01/30/2025 3:[address] [place] [phone] Arturo Cordero MD [facility] HEMATOLOGY [place] [address] 01/30/2025 4:15 PM EDT Office Visit Hematology and Oncology at [facility] [place] [address] Arturo Cordero MD [facility] DR HEMATOLOGY [place] [address] Scheduled Procedures Name Priority Associated Diagnoses Date/Ti [...] who have questions please contact the health animal care provider that requested your imaging first. [...] patients who have questions please contactthe health animal care provider that requested your imaging first. Leandra Black TURNER SPLITTER MACHINE OPERATOR IMG CT ORDERABLES * Lactate Dehydrogenase (06/24/2021 12:52 PM EST) Lactate Dehydrogenase 215 110 - 220 unit/L [facility] Blood 06/24/2021 12:5 2 PM EST 06/24/2021 1:02 PM EST Narrative Resulting Agency Comment Spec In Lab Leandra Black APRN CHEMISTRY ORDERABL ES [facility] [place] [address] * (ABNORMAL) Comprehensive metabolic panel (non-fasting) (06/24/2021 12:52 PM EST) Glucose 185 65 - 199 mg/dL [facility] Comment:Diabetes: >=200 mg/d L plus symptoms Blood Urea Nitrogen 12 8 - 18 mg/dL [facility] Creatinine 0.91 0.70 - 1.20 mg/dL [facility] [...] questions. Chloride 104 98 - 107 mmol/L [facility] Carbon Dioxide 25 22 - 31 mmol/L [facility] Anion Gap 11 5 - 15 mmol/L [facility] Calcium 9.6 8.5 - 10.5 mg/dL [facility] Protein, Total 6.9 6.1 - 8.0 g/dL [facility] Albumin 4.3 3.2 - 5.2 g/dL [facility] Aspartate Aminotransferase 27 0 - 30 unit/L [facility] Alanine Aminotransferase 34(H) 0 - 30 unit/L [facility] Alkaline Phosphatase 93 35 - 105 unit/L [facility] Bilirubin, Total 0.3 0.2 - 1.3 mg/dL [facility] Est Glomerular Filtration Rate 68 >=60 mL/min/1. 73 m?? [facility] Comment: This patient? s estimated [...] Lab Leandra Black APRN CHEMISTRY ORDERABL ES [facility] [place] [address] * US Soft Tissue Head Or Neck (03/19/2021 11:03 AM EDT) Anatomical Region Laterality Modality Ultrasound 03/19/2021 10:5 4 AM EDT Impressions 03/19/2021 12:13 PM EDT ?? Comparison 09/15/2020 Lymph nodes visualized in the left cervical region demonstrate normal morphology. No suspicious findings. Electronically signed by: Faina Stahl MD, [facility] ([phone]), at 03/19/2021 12:07 PM Thank you for letting us participate in the care of this patient. If you are a health care provider and have any questions regarding this report, please contact the number above. For patients who have questions, please contact the health animal care provider that requested your imaging first. ?Faina Hernadez, Staff Physician Electronically Signed Final Report ?? 03/19/2021 12:13 pm Narrative 03/19/2021 12:13 PM EDT Ultrasound Soft Tissue ?(Signed Final 03/19/2021 12:13 pm) Neck or Head Report PATIENT INFO: ID #: ? [id number] ?: ??[birth year] (60 yrs)(F) Name: ? PATIENCE MANJARREZ ? Visit Date: 03/19/2021 10:54 am PERFORMED BY: Performed By: ? Tonia Lopes RDMS Attending: ?Faina Stahl MD. Referred By: ?LEANDRA BLACK Location: ? [place] SERVICE(S) PROVIDED: USTN - Soft Tissue Neck or Head - [id number] ? [id number] INDICATIONS: History of left eye conjunctival melanoma [...] or Head Report PATIENT INFO: ID #: [id number] : 58 (60 yrs)(F) Name: PATIENCE MANJARREZ Visit Date: 03/19/2021 10:54 am PERFORMED BY: Performed By: Tonia Lopes RDMS Attending: Faina Stahl MD Referred By: LEANDRA BLACK Location: [place] SERVICE(S) PROVIDED: USTN - Soft Tissue Neck or Head - [id number] INDICATIONS: History of left eye conjunctival melanoma [...] findings. Electronically signed by: Faina Stahl MD, [facility] ([phone]), at 03/19/2021 12:07 PM Thank you for letting us participate in the care of this patient. If you are a health care provider and have any questions regarding this report, please contact the number above. For patients who have questions, please contact the health animal care provider that requested your imaging first. Faina Hernadez, Staff Physician Electronically Signed Final Report 03/19/2021 12:13 pm Leandra Black TURNER SPLITTER MACHINE OPERATOR IMG US GEN ORDERAB LES documented in this encounter Visit Diagnoses Diagnosis Malignant melanoma of conjunctiva, left History of renal cell cancer Malignant melanoma of conjunctiva, left Malignant melanoma of conjunctiva, left documented in this encounter Care Teams Electrician Marine Relationship Specialty Start Date End Date Luis E Narayan MD [facility] [address] [place] [address] PCP - General Family Medicine 03/26/19 01/19/22 documented as of this encounter
--- OUTSIDE RECORDS SUMMARY | 2024-06-07 13:37 | XMS_ITS | Encounter Summary ---
Author Organization [facility] Address [facility] [place] [address] Care Team Providers Care Obedience Trainer Name Role Phone Luis E Narayan MD Primary Care Provider [phone]- [phone] Reason for Visit * Reason Onset Date Comments Medication Refill 03/18/2021 Encounter Details Date Type Department Care Team (Late st Contact Info) Description 03/18/2021 Refill Family Medicine at [facility] [address] [place] [address] Luis E Narayan MD [facility] DR LILI WALKER[place] [address] Social History Tobacco Use Types Packs/Day Years [...] Office Visit Internal Medicine at [facility] [address] [place] [address] Daryn Garrett MD [facility] DR LILI [place] [address] 10/02/2024 1:00 PM EDT Office [place] [phone] Juanpablo Hernandez MD [facility] [place] [address] 01/30/2025 1:30 PM EDT Laboratory Appointment Lab at [facility] Hematology Oncology [address] [place] [phone] 01/30/2025 3:[address] [place] [address] Arturo Cordero MD [facility] HEMATOLOGY [place] [address] 01/30/2025 4:15 PM EDT Office Visit Hematology [place] [address] Arturo Cordero MD [facility] HEMATOLOGY [place] [address] Scheduled Procedures Name Priority Associated Diagnoses Date/Ti me EGD, UPPER GI ENDOSCOPY (WRV U 2.09) Irritable bowel syndrome with constipation COLONOSCOPY, DIAGNOSTIC (WRV U 3.26) Irritable bowel syndrome with constipation documented as of this encounter Visit Diagnoses Not on filedocumented in this encounter Care Teams Obedience Trainer Relationship Specialty Start Date End Date Luis E Narayan MD [facility] [address] [place] [address] PCP - General Family Medicine 03/26/19 01/19/22 documented as of this encounter
--- OUTSIDE RECORDS SUMMARY | 2024-06-07 13:37 | XMS_ITS | Encounter Summary ---
Author Organization [facility] [place] [address] Care Team Providers Care Spinner Box Name Role Phone Luis E Narayan MD Primary Care Provider Encounter Details Date Type Department Care Team (Late st Contact Info) Description 03/19/2021 10:52 AM EDT - 03/19/2021 11:59 PM EDT Hospital En[place] [address] Leandra Black, ELEVATOR ATTENDANT [facility] DR [place] [address] Malignant melanoma of conjunctiva, left Discharge Disposition: [...] No 02/03/2021 Housing Stability Vital Sign Answer Zoiel e [...] tablet 1 01/08/2021 08/02/2021 FreeStyle Sanjana 2 [place] MiscIndications:diabete s mellitus 1 each by Other [...] 09/15/2020 09/19/2023 fluticasone propionate (FLONASE) 50 mcg/actuation [place], Suspension 1 spray by Each Nare route [...] Office Visit Internal Medicine at [facility] [address] [place] [address] Daryn Garrett MD [facility] [address] LILI [place] [address] 10/02/2024 1:00 PM EDT Office [place] [address] Juanpablo Hernandez MD [facility] [place] [address] 01/30/2025 1:30 PM EDT Laboratory Appointment Lab at [facility] Hematology Oncology [address] [place] [phone] 01/30/2025 3:[address] [place] [phone] Arturo Cordero MD [facility] DR [place] [address] 01/30/2025 4:15 PM EDT Office Visit Hematology [place] [phone] Arturo Cordero MD [facility] DR [place] [address] Scheduled Procedures Name Priority Associated Diagnoses Date/Ti [...] findings. Electronically signed by: Faina Stahl MD, [facility] ([phone]), at 03/19/2021 12:07 PM Thank you for letting us participate in the care of this patient. If you are a health care provider and have any questions regarding this report, please contact the number above. For patients who have questions, please contact the health care coordinator that requested your imaging first. ?Faina Hernadez, Staff Physician Electronically Signed Final Report ?? 03/19/2021 12:13 pm Narrative 03/19/2021 12:13 PM EDT Ultrasound Soft Tissue ?(Signed Final 03/19/2021 12:13 pm) Neck or Head Report PATIENT INFO: ID #: ? [id number] ?: ??58 (60 yrs)(F) Name: ? ALIZE MANJARREZ ? Visit Date: 03/19/2021 10:54 am PERFORMED BY: Performed By: ? Tonia Lopes RDMS Attending: ?Favio COLVIN, Faina Nielsen Referred By: ?LEANDRA BLACK Location: ? [place] SERVICE(S) PROVIDED: USTN - Soft Tissue Neck or Head - [id number] ? [id number] INDICATIONS: History of left eye conjunctival melanoma [...] or Head Report PATIENT INFO: ID #: [id number] : 58 (60 yrs)(F) Name: ALIZE MANJARREZ Visit Date: 03/19/2021 10:54 am PERFORMED BY: Performed By: Tonia Lopes RDMS Attending: Faina Stahl MD Referred By: LEANDRA BLACK Location: [place] SERVICE(S) PROVIDED: USTN - Soft Tissue Neck or Head - [id number] INDICATIONS: History of left eye conjunctival melanoma [...] findings. Electronically signed by: Faina Stahl MD, [facility] ([phone]), at 03/19/2021 12:07 PM Thank you for letting us participate in the care of this patient. If you are a health care provider and have any questions regarding this report, please contact the number above. For patients who have questions, please contact the health care coordinator that requested your imaging first. Faina Hernadez, Staff Physician Electronically Signed Final Report 03/19/2021 12:13 pm Leandra Black APRN IMG US GEN ORDERAB LES documented in this encounter Visit Diagnoses Diagnosis Malignant melanoma of conjunctiva, left documented in this encounter Care Teams Spinner Box Relationship Specialty Start Date End Date Luis E Narayan MD [facility] [address] LILI [place] [address] PCP - General Family Medicine 03/26/19 01/19/22 documented as of this encounter
--- OUTSIDE RECORDS SUMMARY | 2024-06-07 13:37 | XMS_ITS | Encounter Summary ---
Author Organization [facility] [place] [address] Care Team Providers Care Sheeting Puller Name Role Phone Luis E Narayan MD Primary Care Provider [phone]- [phone] Reason for Referral * Consultation (Routine) - Closed Specialty Diagnoses / Procedures Referred By Gonzalez kumari Referred To Contact General Surgery Diagnoses Bloating Alternating constipation and diarrhea [place] [address] Torito Coon MD [address] [place] [address] Referral ID Status Reason Start Date Expiration Date V isits Requested Visits Authorized [id number] Closed Test Only 02/03/2021 08/02/2021 1 1 Reason for Visit * Reason Comments Follow-up Been significantly w orse for past 3 days. Other Wants to ask liliana canales about small hernia on CT scan in December and discuss possible IBS Encounter Details Date Type Department Care Team (Late st Contact Info) Description 02/03/2021 4:00 PM EDT Office Visit Internal Medicine at [facility] [address] [place] [address] [place] [address] Bloating; Alternating constipation and diarrhea Social History [...] Code ??? 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 Altered [...] EST Office Visit Internal Medicine at [address] [phone] Daryn Garrett MD [facility] [address] L[place] [address] 10/02/2024 1:00 PM EDT Office Visit [place] [phone] Juanpablo Hernandez MD [facility] [address] 01/30/2025 1:30 PM EDT Laboratory Appointment Lab at [facility] Hematology Oncology [address] [place] [phone] 01/30/2025 3:[address] [place] [phone] Arturo Cordero MD [facility] [place] [address] 01/30/2025 4:15 PM EDT Office Visit Hematology [place] [phone] Arturo Cordero MD [facility] [place] [address] Scheduled Procedures Name Priority Associated Diagnoses Date/Ti [...] system documented in this encounter Care Teams Sheeting Puller Relationship Specialty Start Date End Date Luis E Narayan MD [facility] [address] [place] [address] PCP - General Family Medicine 03/26/19 01/19/22 documented as of this encounter
--- OUTSIDE RECORDS SUMMARY | 2024-06-07 13:37 | XMS_ITS | Encounter Summary ---
Author Organization [facility] Address [facility] [place] [address] Care Team Providers Care Digital Account Coordinator Name Role Phone Luis E Narayan MD Primary Care Provider Encounter Details Date Type Department Care Team (Late st Contact Info) Description 01/04/2021 Ancillary Procedure Radiology Library at [facility] [place] [address] Luis E Narayan MD [facility] [address] LILI W[place] [address] Social History Tobacco Use Types Packs/Day Years [...] EST Office Visit Internal Medicine at [address] [place] [phone] Daryn Garrett MD [facility] DR LILI [place] [address] 10/02/2024 1:00 PM EDT Office [place] [phone] Juanpablo Hernandez MD [facility] [place] [address] 01/30/2025 1:30 PM EDT Laboratory Appointment Lab at [facility] Hematology Oncology [address] [place] [phone] 01/30/2025 3:[address] [place] [address] Arturo Cordero MD [facility] DR [place] [address] 01/30/2025 4:15 PM EDT Office Visit Hematology and Oncology at [facility] [place] [address] Arturo Cordero MD [facility] [address] [place] [address] Scheduled Procedures Name Priority Associated Diagnoses Date/Ti [...] DX Chest (01/04/2021 12:00 AM EDT) Narrative [facility] - 02/15/2021 11:34 AM EDT This exam is auto-finalizing. It's purpose is for storage only. Luis E Narayan MD IMG FILM LIBRARY OR DERABLES [place], [place] documented in this encounter Visit Diagnoses Not on filedocumented in this encounter Care Teams Digital Account Coordinator Relationship Specialty Start Date End Date Luis E Narayan MD [facility] [address] [place] [address] PCP - General Family Medicine 03/26/19 01/19/22 documented as of this encounter
--- OUTSIDE RECORDS SUMMARY | 2024-06-07 13:37 | XMS_ITS | Encounter Summary ---
Author Organization [facility] Address [facility] [place] [address] Care Team Providers Care Marble Mason Name Role Phone Luis E Narayan MD Primary Care Provider Encounter Details Date Type Department Care Team (Late st Contact Info) Description 02/11/2021 Ancillary Procedure Radiology Library at [facility] [place] [address] Luis E Narayan MD [facility] DR LILI [place] [address] Social History Tobacco Use Types Packs/Day Years [...] AM EST Office Visit Internal Medicine at [address] [place] [phone] Daryn Garrett MD [facility] [address] [place] [address] 10/02/2024 1:00 PM EDT Office [place] [phone] Juanpablo Hernandez MD [facility] [place] [address] 01/30/2025 1:30 PM EDT Laboratory Appointment Lab at [facility] Hematology Oncology [address] [place] [phone] 01/30/2025 3:[address] [place] [address] Arturo Cordero MD [facility] [place] [address] 01/30/2025 4:15 PM EDT Office Visit Hematology [place] [address] Arturo Cordero MD [facility] [place] [address] Scheduled Procedures Name Priority Associated Diagnoses Date/Ti [...] & Pelvis (02/11/2021 12:00 AM EDT) Narrative [facility] - 02/15/2021 11:35 AM EDT This exam is auto-finalizing. It's purpose is for storage only. Luis E Narayan MD IMG FILM LIBRARY OR DERABLES Performing Organization Address City/State/[facility] Co de Phone Number [place], [place] documented in this encounter Visit Diagnoses Not on filedocumented in this encounter Care Teams Marble Mason Relationship Specialty Start Date End Date Luis E Narayan MD [facility] [address] [address] PCP - General Family Medicine 03/26/19 01/19/22 documented as of this encounter
--- OUTSIDE RECORDS SUMMARY | 2024-06-07 13:37 | XMS_ITS | Encounter Summary ---
Author Organization [place] [address] Care Team Providers Care Stem Maker Name Role Phone Luis E Narayan MD Primary Care Provider [phone] Reason for Referral * Diagnostic Test (Routine) - Closed Specialty Diagnoses / Procedures Referred By Contac t Referred To Contact Radiology Diagnoses Malignant melanoma of conjunctiva, left Procedures CT Chest Abdomen Pelvis w Contrast (Generic) Leandra Lopes APRN [facility] DR HEMATOLOGY [place] [address] [facility] [place] [address] Referral ID Status Reason Start Date Expiration Date V isits Requested Visits Authorized [id number] Closed Specialty Service Requested 12/17/2020 06/18/2022 1 1 Reason for Visit * Diagnostic Test (Routine) - Closed Specialty Diagnoses / Procedures Referred By Contac t Referred To Contact Radiology Diagnoses Malignant melanoma of conjunctiva, left Procedures CT Chest Abdomen Pelvis w Contrast (Generic) Leandra Lopes APRN [facility] DR HEMATOLOGY [place] [address] [facility] [place] [address] Referral ID Status Reason Start Date Expiration Date V isits Requested Visits Authorized [id number] Closed Specialty Service Requested 12/17/2020 06/18/2022 1 1 Encounter Details Date Type Department Care Team (Late st Contact Info) Description 06/24/2021 12:31 PM EST - 06/24/2021 12:42 PM EST Hospital Encounter CT Scan at [facility] [place] [address] Leandra Lopes APRN [facility] HEMATOLOGY [place] [address] Malignant melanoma of conjunctiva, left Discharge Disposition: [...] tablet 1 01/08/2021 08/02/2021 FreeStyle Sanjana 2 [place] MiscIndications:diabetes mellitus 1 each by Other route [...] 09/15/2020 09/19/2023 fluticasone propionate (FLONASE) 50 mcg/actuation [place], Suspension 1 spray by Each Nare [...] AM EST Office Visit Internal Medicine at [place] [address] [place] [phone] Daryn Garrett MD [facility] DR LILI WALKER [place] [address] 10/02/2024 1:00 PM EDT Office [place] [phone] Juanpablo Hernandez MD [facility] [place] [address] 01/30/2025 1:30 PM EDT Laboratory Appointment Lab at [facility] Hematology Oncology [address] [place] [phone] 01/30/2025 3:[address] [place] [phone] Arturo Cordero MD [facility] HEMATOLOGY [place] [address] 01/30/2025 4:15 PM EDT Office Visit Hematology [place] [phone] Arturo Cordero MD [facility] HEMATOLOGY [place] [address] Scheduled Procedures Name Priority Associated Diagnoses Date/Ti [...] have questions please contact the health healthcare market consultant that requested your imaging first. ? [...] who have questions please contactthe health healthcare market consultant that requested your imaging first. Leandra Lopes APRN [facility] CT ORDERABLES documented in this encounter Visit [...] mLs documented in this encounter Care Teams Stem Maker Relationship Specialty Start Date End Date Luis E Narayan MD [facility] DR LILI WALKER-[place] [address] PCP - General Family Medicine 03/26/19 01/19/22 documented as of this encounter
--- OUTSIDE RECORDS SUMMARY | 2024-06-07 13:37 | XMS_ITS | Encounter Summary ---
Author Organization [facility] Address [facility] [place] [address] Care Team Providers Care Mold Loft Worker Name Role Phone Luis E Narayan MD Primary Care Provider [phone] Reason for Visit * Reason Onset Date Comments Medication Refill 01/07/2021 Encounter Details Date Type Department Care Team (Late st Contact Info) Description 01/07/2021 Refill Family Medicine at [facility] [address] [place] [address] Luis E [address] [facility] [address] LILI WALKER[place] [address] Type 2 diabetes mellitus without long-term current [...] slept in a jail (including now)? No 09/15/2020 Sex and Gender Information Value Date Recorded Sex Assigned at Not on file Gender Identity Not on file Sexual Orientation Not on file documented as of this encounter Plan of Treatment Upcoming Encounters Date Type Department Care Team (Late st Contact Info) Description 06/28/2024 9:30 AM EST Office Visit Internal Medicine at [facility] [address] [place] [address] [facility] [address] LILI [place]ER [place] [address] 10/02/2024 1:00 PM EDT Office [place] [phone] [facility] [place] [address] 01/30/2025 1:30 PM EDT Laboratory Appointment Lab at [facility] Hematology Oncology [address] [place] [phone] 01/30/2025 3:[address] [place] [address] [facility] HEMATOLOGY [place] [address] 01/30/2025 4:15 PM EDT Office Visit Hematology [place] [address] [facility] HEMATOLOGY [place] [address] Scheduled Procedures Name Priority Associated Diagnoses Date/Ti me EGD, UPPER GI ENDOSCOPY (WRV U 2.09) Irritable bowel syndrome with constipation COLONOSCOPY, DIAGNOSTIC (WRV U 3.26) Irritable bowel syndrome with constipation documented as of this encounter Visit Diagnoses Diagnosis Type 2 diabetes mellitus without long-term current use of insulin documented in this encounter Care Teams Mold Loft Worker Relationship Specialty Start Date End Date Luis E Narayan MD [facility] [address] [place] [address] PCP - General Family Medicine 03/26/19 01/19/22 documented as of this encounter
--- OUTSIDE RECORDS SUMMARY | 2024-06-07 13:37 | XMS_ITS | Encounter Summary ---
Author Organization [facility] Address [facility] [place] [address] Care Team Providers Care Credentialing Coordinator Name Role Phone Luis E Narayan MD Primary Care Provider [phone] Reason for Visit * Reason Onset Date Comments Medication Refill 03/30/2021 Encounter Details Date Type Department Care Team (Late st Contact Info) Description 03/30/2021 Refill Family Medicine at [facility] [address] [place] [address] Luis E Narayan MD [facility] [address] LILI W[place] [address] Social History Tobacco Use Types Packs/Day Years [...] slept in a halfway (including now)? No 02/03/2021 Sex and Gender Information Value Date Recorded Sex Assigned at Not on file Gender Identity Not on file Sexual Orientation Not on file documented as of this encounter Plan of Treatment Upcoming Encounters Date Type Department Care Team (Late st Contact Info) Description 06/28/2024 9:30 AM EST Office Visit Internal Medicine at [facility] [address] [place] [address] Daryn Garrett MD [facility] [address] LILI [place] [address] 10/02/2024 1:00 PM EDT Office [place] [phone] Juanpablo Hernandez MD [facility] [place] [address] 01/30/2025 1:30 PM EDT Laboratory Appointment Lab at [facility] Hematology Oncology [address] [place] [phone] 01/30/2025 3:[address] [place] [address] Arturo Cordero MD [facility] [place] [address] 01/30/2025 4:15 PM EDT Office Visit Hematology [place] [address] Arturo Cordero MD [facility] [place] [address] Scheduled Procedures Name Priority Associated Diagnoses Date/Ti me EGD, UPPER GI ENDOSCOPY (WRV U 2.09) Irritable bowel syndrome with constipation COLONOSCOPY, DIAGNOSTIC (WRV U 3.26) Irritable bowel syndrome with constipation documented as of this encounter Visit Diagnoses Not on filedocumented in this encounter Care Teams Credentialing Coordinator Relationship Specialty Start Date End Date Luis E Narayan MD [facility] [address] [place] [address] PCP - General Family Medicine 03/26/19 01/19/22 documented as of this encounter
--- OUTSIDE RECORDS SUMMARY | 2024-06-07 13:37 | XMS_ITS | Encounter Summary ---
Author Organization [facility] [place] [address] Care Team Providers Care Product Development Worker Name Role Phone Luis E Narayan MD Primary Care Provider Encounter Details Date Type Department Care Team (Late st Contact Info) Description 03/31/2021 Orders Only Family Medicine at [address] [place] [address] Alejandra Posadas, RN Social History Tobacco Use [...] EST Office Visit Internal Medicine at [address] [address] Daryn Garrett MD [facility] DR LILI WALKER - [place] [address] 10/02/2024 1:00 PM EDT Office [place] [phone] Juanpablo Hernandez MD [facility] [place] [address] 01/30/2025 1:30 PM EDT Laboratory Appointment Lab at [facility] Hematology Oncology [address] [place] [phone] 01/30/2025 3:[address] [place] [phone] Arturo Cordero MD [facility] HEMATOLOGY AND ONCOLOGY [place], [place] [phone] 01/30/2025 4:15 PM EDT Office Visit Hematology [place] [phone] Arturo Cordero MD [facility] HEMATOLOGY [place] [address] Scheduled Procedures Name Priority Associated Diagnoses Date/Ti me EGD, UPPER GI ENDOSCOPY (WRV U 2.09) Irritable bowel syndrome with constipation COLONOSCOPY, DIAGNOSTIC (WRV U 3.26) Irritable bowel syndrome with constipation documented as of this encounter Visit Diagnoses Not on filedocumented in this encounter Care Teams Product Development Worker Relationship Specialty Start Date End Date Luis E Narayan MD [facility] [address] [place] [address] PCP - General Family Medicine 03/26/19 01/19/22 documented as of this encounter
--- OUTSIDE RECORDS SUMMARY | 2024-06-07 13:37 | XMS_ITS | Encounter Summary ---
[place] [address] Care Team Providers Care Automobile Rental Clerk Name Role Phone Luis E Narayan MD Primary Care Provider Reason for Referral * Consultation (Routine) - Closed Specialty Diagnoses / Procedures Referred By Gonzalez kumari Referred To Contact Gastroenterology Diagnoses Nonalcoholic hepatosteatosis fatty liver disease Janessa Davies APRN [facility] [place] [address] [facility] [place] [address] Referral ID Status Reason Start Date Expiration Date V isits Requested Visits Authorized [id number] Closed Assume Subset of Care 05/31/2021 05/31/2022 1 1 * Physical Therapy (Routine) - Closed Specialty Diagnoses / Procedures Referred By Contchrissy kumari Referred To Contact Physical Therapy Diagnoses Right leg pain Janessa Davies APRN [facility] [place] [address] Physical Therapy, [address] [address] Referral ID Status Reason Start Date Expiration Date V isits Requested Visits Authorized [id number] Closed Evaluate and Treat 05/31/2021 11/27/2021 10 10 Reason for Visit * Reason Comments Right Leg Pain Referral Gastro for GERD, Gas tritis and fatty liver diease Other blood work Immunizations influenza vaccine Encounter Details Date Type Department Care Team (Latest Contact Info) Description 05/31/2021 4:00 PM EST Office Visit Family Medicine at [facility] [address] [place] [phone] Norman Ochoa Jr., MD [facility] [place] [address] Healthcare maintenance; Type 2 diabetes mellitus with [...] this encounter Progress Notes * Janessa Davies, BUILDING ATTENDANT - 05/31/2021 4:00 PM EST Subjective: Patient ID: Patience Manjarrez is a 60 y.o. female. Presenting with abdominal pain and multiple requests. Chief Complaint Patient presents with ??? Right Leg Pain ??? Referral Gastro for GERD, Gastritis and fatty liver diease ??? Other blood work ??? Immunizations influenza vaccine Had colonoscopy, and EGD, in [facility] - Dr. Hart still [...] lab work Voice-activated software commonly has unintentional executive recruiter errors, especially incorrect pronouns, verb tense, and typographical mistakes. 45 minutes: Chart review, [id number], coordination of care, and documentation. documented in this encounter Plan of Treatment Upcoming Encounters Date Type Department Care Team (Late st Contact Info) Description 06/28/2024 9:30 AM EST Office Visit Internal Medicine at [address] [phone] Daryn Garrett MD [facility] [address] 10/02/2024 1:00 PM EDT Office [place] [phone] Juanpablo Hernandez MD [facility] [place] [address] 01/30/2025 1:30 PM EDT Laboratory Appointment Lab at [facility] Hematology Oncology [address] [place] [phone] 01/30/2025 3:[address] [place] [address] Arturo Cordero MD [facility] [address] [place] [address] 01/30/2025 4:15 PM EDT Office Visit Hematology [place] [address] Arturo Cordero MD [facility] [address] [place] [address] Scheduled Procedures Name Priority Associated Diagnoses Date/Ti [...] pancreas. Electronically signed by: Nakia Goetz MD, [facility] ([phone]), at 06/08/2021 12:00 PM Thank you for letting us participate in the care of this patient. If you are a health care provider and have any questions regarding this report, please contact the number above. For patients who have questions, please contact the health career services director that requested your imaging first. ? Nakia Goetz, Staff Physician Electronically Signed Final Report ?? 06/08/2021 12:08 pm Narrative 06/08/2021 12:09 PM EST Abdominal ? (Signed Final 06/08/2021 12:08 pm) PATIENT INFO: ID #: ? [id number] ?: ??[birth year] (60 yrs)(F) Name: ? PATIENCE MANJARREZ ? Visit Date: 06/08/2021 11:00 am PERFORMED BY: Performed By: ? Vaughn Marcial RDMS Attending: ?Nakia Goetz MD Referred By: ?JANESSA DAVIES Location: ? [place] SERVICE(S) PROVIDED: UABDLIM - Abdominal Limited Survey Single ? [id number] Organ or Quadrant - [id number] INDICATIONS: RUQ pain, postprandial with fats COMPARISON: [...] 06/08/2021 12:08 pm) PATIENT INFO: ID #: [id number] : 58 (60 yrs)(F) Name: PATIENCE MANJARREZ Visit Date: 06/08/2021 11:00 am PERFORMED BY: Performed By: Vaughn Marcial RDMS Attending: Nakia Goetz MD Referred By: JANESSA DAVIES Location: [place] SERVICE(S) PROVIDED: UABDLIM - Abdominal Limited Survey Single 06368 Organ or Quadrant - [id number] INDICATIONS: RUQ pain, postprandial with fats COMPARISON: [...] pancreas. Electronically signed by: Nakia Goetz MD, [facility] ([phone]), at 06/08/2021 12:00 PM Thank you for letting us participate in the care of this patient. If you are a health care provider and have any questions regarding this report, please contact the number above. For patients who have questions, please contact the health career services director that requested your imaging first. Nakia Goetz, Staff Physician Electronically Signed Final Report 06/08/2021 12:08 pm Janessa Davies BUILDING ATTENDANT IMG US GEN ORDERABLE S * Differential, Automated (05/31/2021 5:57 PM EST) Neutrophil % 56.6 % [facility] Neutrophil Absolute 5.46 1.70 - 6.10 x10(3)/[facility] Lymph % 33.5 % [facility] Lymphocytes Abs 3.2 0.9 - 3.2 x10(3)/[facility] Monocyte % 7.9 % [facility] Monocyte Abs 0.8 0.3 - 0.9 x10(3)/[facility] Eos % 1.2 % [facility] Eosinophils Abs 0.1 0.0 - 0.4 x10(3)/[facility] Basophil % 0.5 % [facility] Baso Absolute 0.0 0.0 - 0.1 x10(3)/[facility] Immature Gran % 0.30 % [facility] Comment: Immature granulocytes(IG's)percentage and absolute count will include metamyelocytes, myelocytes, and promyelocytes. Blood smears from CBCs yielding IG's will be scanned manually for concordance. If this scan disagrees with the automated IG or if promyelocytes are noted, a manual differential will be performed. Immature Gran Absolute 0.03 0.00 - 0.04 x10(3)/[facility] LABORATORY Blood 05/31/2021 5:57 PM EST 05/31/2021 6:05 PM EST Narrative Resulting Agency Comment Spec In Lab Janessa Davies APRN HEMATOLOGY ORDERABLE S [facility] [place] [address] * (ABNORMAL) Hemogram (05/31/2021 5:57 PM EST) White Blood Cell 9.6(H) 4.0 - 9.5 x10(3)/mc L [facility] Red Blood Cell 4.62 4.00 - 5.21 x10(6)/mc L [facility] Hemoglobin 13.5 11.7 - 15.5 g/dL [facility] Hematocrit 40.2 35.7 - 45.8 % [facility] Mean Cell Volume 87.0 82.6 - 94.4 [facility] Mean Cell Hemoglobin 29.2 27.1 - 32.0 pg [facility] Mean Cell Hemoglobin Concentration 33.6 31.7 - 35.0 g/dL [facility] Platelet 404(H) 145 - 357 x10(3)/mc L [facility] RDW Standard Deviation 43.3 37.0 - 46.0 [facility] RDW coefficient of variation 13.6 11.5 - 14.1 % [facility] Mean Platelet Volume 8.8 7.6 - 12.9 [facility] NRBC% auto 0.0 % [facility] NRBC Absolute 0.000 0.000 - 0.000 x10(3)/mc L [facility] Blood 05/31/2021 5:57 PM EST 05/31/2021 6:05 PM EST Narrative Resulting Agency Comment Spec In Lab Janessa Davies APRN HEMATOLOGY ORDERABLE S [facility] [place] [address] * Lipase (05/31/2021 5:57 PM EST) Lipase 46 0 - 60 unit/L [facility] Blood 05/31/2021 5:57 PM EST 05/31/2021 6:05 PM EST Narrative Resulting Agency Comment Spec In Lab Janessa Davies APRN CHEMISTRY ORDERABLES [facility] [place] [address] * Comprehensive metabolic panel (non-fasting) (05/31/2021 5:57 PM EST) Pathologist [facility] Glucose 154 65 - 199 mg/dL [facility] Comment:Diabetes: >=200 mg/d L plus symptoms Blood Urea Nitrogen 14 8 - 18 mg/dL [facility] Creatinine 0.90 0.70 - 1.20 mg/dL [facility] [...] questions. Chloride 103 98 - 107 mmol/L [facility] Carbon Dioxide 26 22 - 31 mmol/L [facility] Anion Gap 11 5 - 15 mmol/L [facility] Calcium 9.5 8.5 - 10.5 mg/dL [facility] Protein, Total 7.3 6.1 - 8.0 g/dL [facility] Albumin 4.3 3.2 - 5.2 g/dL [facility] Aspartate Aminotransferase 17 0 - 30 unit/L [facility] Alanine Aminotransferase 22 0 - 30 unit/L [facility] Alkaline Phosphatase 104 35 - 105 unit/L [facility] Bilirubin, Total 0.2 0.2 - 1.3 mg/dL [facility] Est Glomerular Filtration Rate 69 >=60 mL/min/1. 73 m?? [facility] [...] In Lab Janessa Davies APRN CHEMISTRY ORDERABLES [facility] [place] [phone] * (ABNORMAL) Hemoglobin A1c (05/31/2021 5:57 PM [...] Mellitus, Diabetes Care 2013; 36: Suppl. 1, G76-15 Estimated Average Glucose 178 mg/dL [facility] Comment: eAG [...] into estimated average glucose values. ??Diabetes Care 2008:31(8):9204-6804. Blood 05/31/2021 5:57 PM EST 05/31/2021 6:05 PM EST Narrative Resulting Agency Comment Spec In Lab Janessa Davies APRN CHEMISTRY ORDERABLES [facility] [place] [address] * EKG 12 Lead (05/31/2021 5:16 PM EST) Ventricular rate 68 BPM MUSE SYSTEM Atrial Rate 68 BPM MUSE SYSTEM P-R Interval 180 ms MUSE SYSTEM QRS Duration 92 ms MUSE SYSTEM Q-T Interval 390 ms MUSE SYSTEM QTC Calculated (Bezet) 414 ms MUSE SYSTEM Calculated P Minetto 33 degrees MUSE SYSTEM Calculated R Minetto 12 degrees MUSE SYSTEM Calculated T Minetto 41 degrees MUSE SYSTEM INTERPRETATION Normal sinus rhythm Nonspecific T wave abnormality Abnormal ECG When compared with ECG of 11-SEP-2020 14:20, No significant change was found Confirmed by MD Elsa, Zain Banda ([id number]) on 06/01/2021 9:16:58 AM MUSE SYSTEM 05/31/2021 5:16 PM EST 06/01/2021 9:16 AM EST Janessa Sal Bill BAE ECG ORDERABLES MUSE SYSTEM documented in this [...] quadrant documented in this encounter Care Teams Automobile Rental Clerk Relationship Specialty Start Date End Date Luis E Narayan MD [facility] [place] [address] PCP - General Family Medicine 03/26/19 01/19/22 documented as of this encounter
--- OUTSIDE RECORDS SUMMARY | 2024-06-07 13:37 | XMS_ITS | Encounter Summary ---
[place] [address] Care Team Providers Care Thimble Press Operator Name Role Phone Luis E Narayan MD Primary Care Provider [phone]- [phone] Encounter Details Date Type Department Care Team (Late st Contact Info) Description 02/04/2021 [place] [address] Malika Ye Social History Tobacco Use Types [...] slept in a prison (including now)? No 02/03/2021 Sex and Gender Information Value Date Recorded Sex Assigned at Not on file Gender Identity Not on file Sexual Orientation Not on file documented as of this encounter Miscellaneous Notes * Telephone Encounter - Malika Ye - 02/04/2021 10:21 AM EDT lAize stated she has not used nicotine patches [...] EST Office Visit Internal Medicine at [address] [place] [phone] Daryn Garrett MD [facility] DR LILI [place] [address] 10/02/2024 1:00 PM EDT Office [place] [phone] [facility] [place] [address] 01/30/2025 1:30 PM EDT Laboratory Appointment Lab at [facility] Hematology Oncology [address] [place], [place] [phone] 01/30/2025 3:[address] Scan at [place] [phone] [facility] [place] [address] 01/30/2025 4:15 PM EDT Office Visit H[place]ology [place] [phone] [facility] [address] HEMATOLOGY [place] [address] Scheduled Procedures Name Priority Associated Diagnoses Date/Ti me EGD, UPPER GI ENDOSCOPY (WRV U 2.09) Irritable bowel syndrome with constipation COLONOSCOPY, DIAGNOSTIC (WRV U 3.26) Irritable bowel syndrome with constipation documented as of this encounter Visit Diagnoses Not on filedocumented in this encounter Care Teams Thimble Press Operator Relationship Specialty Start Date End Date Luis E Naaryan MD [facility] [address] [place] [address] PCP - General Family Medicine 03/26/19 01/19/22 documented as of this encounter
--- OUTSIDE RECORDS SUMMARY | 2024-06-07 13:37 | XMS_ITS | Encounter Summary ---
Author Organization [facility] [address] Care Team Providers Care Logistics Administrator Name Role Phone Luis E Narayan MD Primary Care Provider [phone]- [phone] Encounter Details Date Type Department Care Team (Latest Contact Info) Description 06/24/2021 12:43 PM EST - 06/24/2021 11:59 PM EST Hospital Encounter [place]ology [place] [address] Malignant melanoma of conjunctiva, left; History of [...] tablet 1 01/08/2021 08/02/2021 FreeStyle Sanjana 2 Mclean MiscIndications:diabetes mellitus 1 each by Other route [...] 09/15/2020 09/19/2023 fluticasone propionate (FLONASE) 50 mcg/actuation [place], Suspension 1 spray by Each Nare route [...] EST Office Visit Internal Medicine at [address] [phone] Daryn Garrett MD [facility] [address] LILI [place] [address] 10/02/2024 1:00 PM EDT Office [place] [phone] Juanpablo Hernandez MD [facility] [place] [address] 01/30/2025 1:30 PM EDT Laboratory Appointment Lab at [facility] Hematology Oncology [address] [place] [phone] 01/30/2025 3:[address] [place] [phone] Arturo Cordero MD [facility] DR HEMATOLOGY [place] [address] 01/30/2025 4:15 PM EDT Office Visit Hematology and Oncology at [facility] [place] [address] Arturo Cordero MD [facility] DR HEMATOLOGY [place] [address] Scheduled Procedures Name Priority Associated Diagnoses Date/Ti [...] 12:52 PM EST) Neutrophil % 62.0 % [facility] Neutrophil Absolute 5.24 1.70 - 6.10 x10(3)/[facility] Lymph % 27.4 % [facility] Lymphocytes Abs 2.3 0.9 - 3.2 x10(3)/[facility] Monocyte % 8.0 % [facility] Monocyte Abs 0.7 0.3 - 0.9 x10(3)/[facility] Eos % 1.4 % [facility] Eosinophils Abs 0.1 0.0 - 0.4 x10(3)/[facility] Basophil % 0.8 % [facility] Baso Absolute 0.1 0.0 - 0.1 x10(3)/[facility] Immature Gran % 0.40 % [facility] Comment: Immature granulocytes(IG's)percentage and absolute count will include metamyelocytes, myelocytes, and promyelocytes. Blood smears from CBCs yielding IG's will be scanned manually for concordance. If this scan disagrees with the automated IG or if promyelocytes are noted, a manual differential will be performed. Immature Gran Absolute 0.03 0.00 - 0.04 x10(3)/[facility] Blood 06/24/2021 12:5 2 PM EST 06/24/2021 1:02 PM EST Narrative Resulting Agency Comment Spec In Lab Leandra Lopes APRN HEMATOLOGY ORDERAB LES [facility] [place] [address] * (ABNORMAL) Hemogram (06/24/2021 12:52 PM EST) White Blood Cell 8.5 4.0 - 9.5 x10(3)/mc L [facility] Red Blood Cell 4.74 4.00 - 5.21 x10(6)/mc L [facility] Hemoglobin 13.9 11.7 - 15.5 g/dL [facility] Hematocrit 40.8 35.7 - 45.8 % [facility] Mean Cell Volume 86.1 82.6 - 94.4 fL [facility] Mean Cell Hemoglobin 29.3 27.1 - 32.0 pg [facility] Mean Cell Hemoglobin Concentration 34.1 31.7 - 35.0 g/dL [facility] Platelet 393(H) 145 - 357 x10(3)/mc L [facility] RDW Standard Deviation 43.5 37.0 - 46.0 fL [facility] RDW coefficient of variation 13.7 11.5 - 14.1 % [facility] Mean Platelet Volume 9.0 7.6 - 12.9 fL [facility] NRBC% auto 0.0 % [facility] NRBC Absolute 0.000 0.000 - 0.000 x10(3)/mc L [facility] Blood 06/24/2021 12:5 2 PM EST 06/24/2021 1:02 PM EST Narrative Resulting Agency Comment Spec In Lab Leandra Lopes AIRCRAFT DISPATCHER HEMATOLOGY ORDERAB LES [facility] [place] [address] * (ABNORMAL) Comprehensive metabolic panel (non-fasting) (06/24/2021 12:52 PM EST) Glucose 185 65 - 199 mg/dL [facility] Comment:Diabetes: >=200 mg/d L plus symptoms Blood Urea Nitrogen 12 8 - 18 mg/dL [facility] Creatinine 0.91 0.70 - 1.20 mg/dL [facility] [...] mmol/L [facility] Carbon Dioxide 25 22 - 31 mmol/L [facility] Anion Gap 11 5 - 15 mmol/L [facility] Calcium 9.6 8.5 - 10.5 mg/dL [facility] Protein, Total 6.9 6.1 - 8.0 g/dL [facility] Albumin 4.3 3.2 - 5.2 g/dL [facility] Aspartate Aminotransferase 27 0 - 30 unit/L [facility] Alanine Aminotransferase 34(H) 0 - 30 unit/L [facility] Alkaline Phosphatase 93 35 - 105 unit/L [facility] Bilirubin, Total 0.3 0.2 - 1.3 mg/dL [facility] Est Glomerular Filtration Rate 68 >=60 mL/min/1. 73 m?? [facility] [...] APRN CHEMISTRY ORDERABL ES Performing Organization Address City/[facility]/ZIP Co de Phone Number [facility] [place] [address] * Lactate Dehydrogenase (06/24/2021 12:52 PM EST) Lactate Dehydrogenase 215 110 - 220 unit/L [facility] Blood 06/24/2021 12:5 2 PM EST 06/24/2021 1:02 PM EST Narrative Resulting Agency Comment Spec In Lab Leandra Lopes AIRCRAFT DISPATCHER CHEMISTRY ORDERABL ES [facility] [place] [address] documented in this encounter Visit Diagnoses Diagnosis Malignant melanoma of conjunctiva, left History of renal cell cancer documented in this encounter Care Teams Logistics Administrator Relationship Specialty Start Date End Date Luis E Narayan MD [facility] DR LILI [place] [address] PCP - General Family Medicine 03/26/19 01/19/22 documented as of this encounter
--- OUTSIDE RECORDS SUMMARY | 2024-06-07 13:37 | XMS_ITS | Encounter Summary ---
Author Organization [facility] [place] [address] Care Team Providers Care Fine Hairer Name Role Phone Luis E Narayan MD Primary Care Provider +[phone]- [phone] Reason for Visit * Reason Onset Date Comments Prior Authorization 04/06/2021 Omeprazole Encounter Details Date Type Department Care Team (Late st Contact Info) Description 04/06/2021 Telephone Family Medicine at [facility] [address] [place] [phone] Arlene Palomo, HIDE AND SKIN CLASSER Prior Authorization (Omeprazole) Social History Tobacco Use [...] slept in a alf (including now)? No 02/03/2021 Sex and Gender Information Value Date Recorded Sex Assigned at Not on file Gender Identity Not on file Sexual Orientation Not on file documented as of this encounter Miscellaneous Notes * Telephone Encounter - Christine Peterson CMA - 04/06/2021 9:15 AM EDT Medication Prior Authorization for Primary Care Approved: Omeprazole Start Date: 04/06/2021 End Date: 07/06/2021 Case/Reference #: [id number] See Approval Letter in scanned documents. Additional Notes: * Telephone Encounter - Arlene Palomo CMA - 04/06/2021 7:48 AM EDT Medication Prior Authorization for Primary [place] [address] Request received via: Message Patient: Alize Gramajo Patient : 1960 Insurance Company: [place] [employer] Sent via: [employer] [place]: [id number] Physician: Luis E Narayan MD ?? Medication [...] EST Office Visit Internal Medicine at [address] [phone] Daryn Garrett MD [facility] DR LILI WALKER - [place] [address] 10/02/2024 1:00 PM EDT Office [place] [phone] Juanpablo Hernandez MD [facility] [place] [address] 01/30/2025 1:30 PM EDT Laboratory Appointment Lab at [facility] Hematology Oncology [address] [place] [phone] 01/30/2025 3:[address] [place] [phone] Arturo Cordero MD [facility] HEMATOLOGY [place] [address] 01/30/2025 4:15 PM EDT Office Visit Hematology [place] [phone] Arturo Cordero MD [facility] DR HEMATOLOGY [place] [address] Scheduled Procedures Name Priority Associated Diagnoses Date/Ti me EGD, UPPER GI ENDOSCOPY (WRV U 2.09) Irritable bowel syndrome with constipation COLONOSCOPY, DIAGNOSTIC (WRV U 3.26) Irritable bowel syndrome with constipation documented as of this encounter Visit Diagnoses Not on filedocumented in this encounter Care Teams Fine Hairer Relationship Specialty Start Date End Date Luis E Narayan MD [facility] DR LILI WALKER[facility] [address] PCP - General Family Medicine 03/26/19 01/19/22 documented as of this encounter
--- OUTSIDE RECORDS SUMMARY | 2024-06-07 13:37 | XMS_ITS | Encounter Summary ---
Author Organization [facility] Address [facility] [place] [address] Care Team Providers Care Mortgage Originator Name Role Phone Luis E Narayan MD Primary Care Provider +1- [phone] Encounter Details Date Type Department Care Team (Late st Contact Info) Description 05/07/2021 Refill Family Medicine at [facility] [address] [place] [address] Luis E Narayan MD [facility] [address] LILI [place] [address] Social History Tobacco Use Types Packs/Day Years [...] [facility] [address] [place] [address] Daryn Garrett MD [facility] LILI [place] [address] 10/02/2024 1:00 PM EDT Office Visit Ophthalmology at [place] [phone] Juanpablo Hernandez MD [facility] [place] [address] 01/30/2025 1:30 PM EDT Laboratory Appointment Lab at [facility] Hematology Oncology [address] [place] [phone] 01/30/2025 3:[address] Scan at [address] Arturo Cordero MD [facility] [place] [address] 01/30/2025 4:15 PM EDT Office Visit Hematology [place] [address] Arturo Cordero MD [facility] [address] [place] [address] Scheduled Procedures Name Priority Associated Diagnoses Date/Ti me EGD, UPPER GI ENDOSCOPY (WRV U 2.09) Irritable bowel syndrome with constipation COLONOSCOPY, DIAGNOSTIC (WRV U 3.26) Irritable bowel syndrome with constipation documented as of this encounter Visit Diagnoses Not on filedocumented in this encounter Care Teams Mortgage Originator Relationship Specialty Start Date End Date Luis E Narayan MD [facility] [address] [place] [address] PCP - General Family Medicine 03/26/19 01/19/22 documented as of this encounter
--- OUTSIDE RECORDS SUMMARY | 2024-06-07 13:37 | XMS_ITS | Encounter Summary ---
Author Organization [facility] [place] [address] Care Team Providers Care Animal Nutritionist Name Role Phone Luis E Narayan MD Primary Care Provider Encounter Details Date Type Department Care Team (Late st Contact Info) Description 06/22/2021 Telephone Internal Medicine at [facility] [address] [place] [phone] Shea Rodas Social History Tobacco Use Types [...] Office Visit Internal Medicine at [place] [address] [place] [address] Daryn Garrett MD [facility] DR [place] [address] 10/02/2024 1:00 PM EDT Office [place] [phone] Juanpablo Hernandez MD [facility] [place] [address] 01/30/2025 1:30 PM EDT Laboratory Appointment Lab at [facility] Hematology Oncology [address] [place] [phone] 01/30/2025 3:[address] [place] [address] Arturo Cordero MD [facility] [place] [address] 01/30/2025 4:15 PM EDT Office Visit H[place]ology [place] [address] Arturo Cordero MD [facility] [place] [address] Scheduled Procedures Name Priority Associated Diagnoses Date/Ti me EGD, UPPER GI ENDOSCOPY (WRV U 2.09) Irritable bowel syndrome with constipation COLONOSCOPY, DIAGNOSTIC (WRV U 3.26) Irritable bowel syndrome with constipation documented as of this encounter Visit Diagnoses Not on filedocumented in this encounter Care Teams Animal Nutritionist Relationship Specialty Start Date End Date Luis E Narayan MD [facility] DR LILI [place] [address] PCP - General Family Medicine 03/26/19 01/19/22 documented as of this encounter
--- OUTSIDE RECORDS SUMMARY | 2024-06-07 13:37 | XMS_ITS | Encounter Summary ---
Author Organization [place] [address] Care Team Providers Care Senior Information Security Architect Name Role Phone Luis E Narayan MD Primary Care Provider +1- [phone] Reason for Visit * Reason Onset Date Comments Appointment 01/25/2021 Encounter Details Date Type Department Care Team (Late st Contact Info) Description 01/25/2021 Telephone [place] [address] Juanpablo Hernandez MD [facility] [place] [address] Appointment Social History Tobacco Use Types Packs/Day [...] AM EST Office Visit Internal Medicine at [facility] [address] [place] [address] Daryn Garrett MD [facility] DR LILI WALKER [place] [address] 10/02/2024 1:00 PM EDT Office Visit Ophthalmology at [place] [phone] Juanpablo Hernandez MD [facility] [place] [address] 01/30/2025 1:30 PM EDT Laboratory Appointment Lab at [facility] Hematology Oncology [address] [place], [place] [phone] 01/30/2025 3:[address] Scan at [place] [phone] Arturo Cordero MD [facility] DR HEMATOLOGY [place] [address] 01/30/2025 4:15 PM EDT Office Visit Hematology and Oncology at [place] [phone] Arturo Cordero MD [facility] DR HEMATOLOGY [place] [address] Scheduled Procedures Name Priority Associated Diagnoses Date/Ti me EGD, UPPER GI ENDOSCOPY (WRV U 2.09) Irritable bowel syndrome with constipation COLONOSCOPY, DIAGNOSTIC (WRV U 3.26) Irritable bowel syndrome with constipation documented as of this encounter Visit Diagnoses Not on filedocumented in this encounter Care Teams Senior Information Security Architect Relationship Specialty Start Date End Date Luis E Narayan MD [facility] DR LILI WALK[place] [address] PCP - General Family Medicine 03/26/19 01/19/22 documented as of this encounter
--- OUTSIDE RECORDS SUMMARY | 2024-06-07 13:37 | XMS_ITS | Encounter Summary ---
Author Organization [facility] [place] [address] Care Team Providers Care Manager User Experience Name Role Phone Luis E Narayan MD Primary Care Provider [phone] [phone] Reason for Referral * Consultation (Routine) - Closed Specialty Diagnoses / Procedures Referred By Gonzalez kumari Referred To Contact Family Medicine Diagnoses Type 2 diabetes mellitus with other specified complication, without long-term current use of insulin Tamera Khan APRN [facility] [place] [address] Julia Low, [facility] Referral ID Status Reason Start Date Expiration Date V isits Requested Visits Authorized [id number] Closed Assume Subset of Care 06/14/2021 06/14/2022 [...] PM EST Office Visit Family Medicine at [facility] [address] [place] [address] Celina Narayan MD [facility] [address] LILI WALKER[place], [place] [phone] Diarrhea, unspecified type; Type 2 diabetes mellitus [...] - POCT Fingerstick Glucose - Referral to [facility] (Primary Care Use Only) - [...] the patient in person Pertinent History: Per DIRECTOR MATERNAL CHILD note Pertinent Exam: Per DIRECTOR MATERNAL CHILD note Major issues addressed: Per DIRECTOR MATERNAL CHILD note Plan: Per DIRECTOR MATERNAL CHILD note documented in this encounter Plan of Treatment Upcoming Encounters Date Type Department Care Team (Late st Contact Info) Description 06/28/2024 9:30 AM EST Office Visit Internal Medicine at [place] [address] [place] [address] Daryn Garrett MD [facility] DR [place] [address] 10/02/2024 1:00 PM EDT Office Visit Ophthalmology at [place] [phone] Juanpablo Hernandez MD [facility] [place] [address] 01/30/2025 1:30 PM EDT Laboratory Appointment Lab at [facility] Hematology Oncology [address] [place] [phone] 01/30/2025 3:[address] [place] [address] Arturo Cordero MD [facility] [place] [address] 01/30/2025 4:15 PM EDT Office Visit Hematology [place] [address] Arturo Cordero MD [facility] DR HEMATOLOGY [place] [address] Scheduled Procedures Name Priority Associated Diagnoses Date/Ti nm EGD, UPPER GI ENDOSCOPY (WRV U 2.09) Irritable bowel syndrome with constipation COLONOSCOPY, DIAGNOSTIC (WRV U 3.26) Irritable bowel syndrome with constipation Scheduled Referrals Name Type Priority Associated Diagnoses Orde r Schedule Referral to [facility] (Primary Care Use Only) Outpatient [...] POC 100 60 - 199 mg/dl Tamera Huang Bill DIRECTOR MATERNAL CHILD POINT OF CARE TEST O RDERABLES * [...] sinus documented in this encounter Care Teams Manager User Experience Relationship Specialty Start Date End Date Luis E Narayan MD [facility] [place] [address] PCP - General Family Medicine 03/26/19 01/19/22 documented as of this encounter
--- OUTSIDE RECORDS SUMMARY | 2024-06-07 13:37 | XMS_ITS | Encounter Summary ---
Author Organization [facility] Address [facility] [place] [address] Care Team Providers Care Concrete Form Setter And Finisher Name Role Phone Luis E Narayan MD Primary Care Provider [phone]- [phone] Reason for Visit * Reason Onset Date Comments Medication Refill 05/05/2021 Encounter Details Date Type Department Care Team (Late st Contact Info) Description 05/05/2021 Refill Family Medicine at [facility] [address] [place] [address] Luis E Narayan MD [facility] DR LILI WALKER-[place] [address] Essential hypertension Social History Tobacco Use Types [...] AM EST Office Visit Internal Medicine at [address] [address] Daryn Garrett MD [facility] DR LILI WALKER [place] [address] 10/02/2024 1:00 PM EDT Office [place] [phone] Juanpablo Hernandez MD [facility] [place] [place] [address] 01/30/2025 1:30 PM EDT Laboratory Appointment Lab at [facility] Hematology Oncology [address] [place] [phone] 01/30/2025 3:[address] [place] [place] [address] Arturo Cordero MD [facility] HEMATOLOGY [place] [address] 01/30/2025 4:15 PM EDT Office Visit [place]ology [place] [address] Arturo Cordero MD [facility] HEMATOLOGY [place] [address] Scheduled Procedures Name Priority Associated Diagnoses Date/Ti me EGD, UPPER GI ENDOSCOPY (WRV U 2.09) Irritable bowel syndrome with constipation COLONOSCOPY, DIAGNOSTIC (WRV U 3.26) Irritable bowel syndrome with constipation documented as of this encounter Visit Diagnoses Diagnosis Essential hypertension Unspecified essential hypertension documented in this encounter Care Teams Concrete Form Setter And Finisher Relationship Specialty Start Date End Date Luis E Narayan MD [facility] [address] [place] [address] PCP - General Family Medicine 03/26/19 01/19/22 documented as of this encounter
--- OUTSIDE RECORDS SUMMARY | 2024-06-07 13:37 | XMS_ITS | Encounter Summary ---
Author Organization [facility] Address [facility] [place] [address] Care Team Providers Care Manager Real Estate Name Role Phone Luis E Narayan MD Primary Care Provider [phone] Reason for Visit * Reason Comments Melanoma Encounter Details Date Type Department Care Team (Late st Contact Info) Description 01/20/2021 12:45 PM EDT Office [place] [address] Juanpablo Hernandez MD [facility] [place] [address] Malignant melanoma of conjunctiva, left Social History [...] AM EST Office Visit Internal Medicine at [facility] [address] [place] [address] Daryn Garrett MD [facility] DR LILI [place] [address] 10/02/2024 1:00 PM EDT Office [place] [address] Juanpablo Hernandez MD [facility] [place] [address] 01/30/2025 1:30 PM EDT Laboratory Appointment Lab at [facility] Hematology Oncology [address] [place] [phone] 01/30/2025 3:[address] [place] [address] Arturo Cordero MD [facility] [place] [address] 01/30/2025 4:15 PM EDT Office Visit Hematology [place] [address] Arturo Cordero MD [facility] DR [place]Y [place] [address] Scheduled Procedures Name Priority Associated Diagnoses Date/Ti me EGD, UPPER GI ENDOSCOPY (WRV U 2.09) Irritable bowel syndrome with constipation COLONOSCOPY, DIAGNOSTIC (WRV U 3.26) Irritable bowel syndrome with constipation documented as of this encounter Visit Diagnoses Diagnosis Malignant melanoma of conjunctiva, left documented in this encounter Care Teams Manager Real Estate Relationship Specialty Start Date End Date Luis E Narayan MD [facility] DR LIIL WALKER-[place] [address] PCP - General Family Medicine 03/26/19 01/19/22 documented as of this encounter
--- OUTSIDE RECORDS SUMMARY | 2024-06-07 13:37 | XMS_ITS | Encounter Summary ---
Author Organization [facility] [place] [address] Care Team Providers Care Coil Winder Strap Name Role Phone Luis E Narayan MD Primary Care Provider [phone]- [phone] Encounter Details Date Type Department Care Team (Latest Contact Info) Description 06/08/2021 10:16 AM EST - 06/08/2021 11:59 PM [facility] Hospital En[place] [address] Janessa Khan, OPERATING ROOM SURGICAL TECHNOLOGIST [facility] DR LILI [place] [address] Right upper quadrant pain Discharge Disposition: Home [...] [place] [facility] [place] (including [place] No 02/03/2021 Sex and Gender [...] tablet 1 01/08/2021 08/02/2021 FreeStyle Sanjana 2 [place] MiscIndications:diabe escobar mellitus 1 each by Other [...] 09/15/2020 09/19/2023 fluticasone propionate (FLONASE) 50 mcg/actuation [place], Suspension 1 spray by Each Nare route [...] AM EST Office Visit Internal Medicine at [facility] [address] [place] [address] Daryn Garrett MD [facility] DR LILI [place] [address] 10/02/2024 1:00 PM EDT Office [place] [phone] Juanpablo Hernandez MD [facility] [place] [address] 01/30/2025 1:30 PM EDT Laboratory Appointment Lab at [facility] Hematology Oncology [address] [place] [phone] 01/30/2025 3:[address] [place] [phone] Arturo Cordero MD [facility] DR [place] [address] 01/30/2025 4:15 PM EDT Office Visit Hematology [place] [phone] Arturo Cordero MD [facility] [place] [address] Scheduled Procedures Name Priority Associated Diagnoses Date/Ti [...] who have questions, please contact the health healthcare consulting manager that requested your imaging first. ? Nakia Goetz, Staff Physician Electronically Signed Final Report ?? 06/08/2021 12:08 pm Narrative 06/08/2021 12:09 PM EST Abdominal ? (Signed Final 06/08/2021 12:08 pm) PATIENT INFO: ID #: ? [id number] ?: ??[birth year] (60 yrs)(F) Name: ? ALIZE MANJARREZ ? Visit Date: 06/08/2021 11:00 am PERFORMED BY: Performed By: ? Vaughn Marcial RDMS Attending: ?Nakia Goetz MD Referred By: ?JANESSA KHAN Location: ? [place] SERVICE(S) PROVIDED: UABDLIM - Abdominal Limited Survey Single ? 43706 Organ or Quadrant - [id number] INDICATIONS: RUQ pain, postprandial with fats COMPARISON: [...] 06/08/2021 12:08 pm) PATIENT INFO: ID #: [id number] : 58 (60 yrs)(F) Name: ALIZE MANJARREZ Visit Date: 06/08/2021 11:00 am PERFORMED BY: Performed By: Vaughn Marcial RDMS Attending: Nakia Goetz MD Referred By: JANESSA KHAN Location: [place] SERVICE(S) PROVIDED: UABDLIM - Abdominal Limited Survey Single 37170 Organ or Quadrant - [id number] INDICATIONS: RUQ pain, postprandial with fats COMPARISON: [...] who have questions, please contact the health healthcare consulting manager that requested your imaging first. Nakia Goetz, Staff Physician Electronically Signed Final Report 06/08/2021 12:08 pm Janessa Khan OPERATING ROOM SURGICAL TECHNOLOGIST IMG US GEN ORDERABLE S documented in this encounter Visit Diagnoses Diagnosis Right upper quadrant pain Abdominal pain, right upper quadrant documented in this encounter Care Teams Coil Winder Strap Relationship Specialty Start Date End Date Luis E Narayan MD [facility] DR [place] [address] PCP - General Family Medicine 03/26/19 01/19/22 documented as of this encounter
--- OUTSIDE RECORDS SUMMARY | 2024-06-07 13:37 | XMS_ITS | Encounter Summary ---
Author Organization [facility] Address [facility] [place] [address] Care Team Providers Care Packer Insulation Name Role Phone Luis E Narayan MD Primary Care Provider [phone]- [phone] Reason for Visit * Reason Onset Date Comments Medication Refill 06/04/2021 Encounter Details Date Type Department Care Team (Late st Contact Info) Description 06/04/2021 Refill Family Medicine at [facility] [address] [place] [address] Luis E Narayan MD [facility] DR LILI AZEV[place] [address] Essential hypertension Social History Tobacco Use Types [...] at [facility] [address] [place] [address] Daryn Garrett MD [facility] DR LILI AZEVEDO [place] [address] 10/02/2024 1:00 PM EDT Office Visit Ophthalmology at [address] Juanpablo Hernandez MD [facility] [address] 01/30/2025 1:30 PM EDT Laboratory Appointment Lab at [facility] Hematology Oncology [address] [place] [address] 01/30/2025 3:[address] Scan at [place] [phone] Arturo Cordero MD [facility] DR HEMATOLOGY [place] [address] 01/30/2025 4:15 PM EDT Office Visit Hematology and Oncology at [address]1000 Arturo Cordero MD [facility] DR HEMATOLOGY [place] [address] Scheduled Procedures Name Priority Associated Diagnoses Date/Ti me EGD, UPPER GI ENDOSCOPY (WRV U 2.09) Irritable bowel syndrome with constipation COLONOSCOPY, DIAGNOSTIC (WRV U 3.26) Irritable bowel syndrome with constipation documented as of this encounter Visit Diagnoses Diagnosis Essential hypertension Unspecified essential hypertension documented in this encounter Care Teams Packer Insulation Relationship Specialty Start Date End Date Luis E Narayan MD [facility] DR LILI AZEVED[place] [address] PCP - General Family Medicine 03/26/19 01/19/22 documented as of this encounter
--- OUTSIDE RECORDS SUMMARY | 2024-06-07 13:37 | XMS_ITS | Encounter Summary ---
Author Organization [facility] [place] [address] Care Team Providers Care Air Bag Buffer Name Role Phone Luis E Narayan MD Primary Care Provider [phone] Reason for Referral * Diagnostic Test (Routine) - Closed Specialty Diagnoses / Procedures Referred By Contac t Referred To Contact Radiology Diagnoses Malignant melanoma of conjunctiva, left Malignant melanoma, unspecified site Procedures CT Neck Soft Tissue w Contrast (Generic) Leandra Lopes APRN [facility] [address] H[place] [address] [facility] [place] [address] Referral ID Status Reason Start Date Expiration Date V isits Requested Visits Authorized [id number] Closed Specialty Service Requested 12/23/2021 07/09/2022 1 1 * Diagnostic Test (Routine) - Closed Specialty Diagnoses / Procedures Referred By Contac t Referred To Contact Radiology Diagnoses Malignant melanoma of conjunctiva, left Malignant melanoma, unspecified site Procedures CT Chest Abdomen Pelvis w Contrast (Generic) Leandra Lopes APRN [facility] [address] HEMATOLOGY [place] [address] [facility] [place] [address] Referral ID Status Reason Start Date Expiration Date V isits Requested Visits Authorized [id number] Closed Specialty Service Requested 12/23/2021 07/09/2022 1 1 Reason for Visit * Reason Comments Follow-up Encounter Details Date Type Department Care Team (Late st Contact Info) Description 06/24/2021 3:15 PM EST Office Visit Hematology [place] [address] Arturo Cordero MD [facility] [address] HEMAT[place] [address] Dottie Jim MD [facility] [place] [address] Leandra Lopes APRN [facility] [place] [address] Malignant melanoma of conjunctiva, left; Malignant melanoma, [...] from the original note were not included. [facility] FOLLOW UP NOTE REFERING PHYSICIAN: [...] management - fall 2018: saw a new marketing pr intern and was referred to Dr. 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 Medina - 03/31/2020: saw her marketing pr intern Dr. Hernandez and was noted to have [...] is having regular follow ups with her interior wall assembler. She continues to smoke, but hopes to [...] uses inhalerswith good effect ??? Atherosclerosis of [place] coronary artery of [place] heart with angina pectoris 10/09/2007 History [...] 3.47) performed by Juanpablo Hernandez MD at [facility] ??? PRO EXCIS CORNEA LESN Left 05/14/2020 EXCISION OF LESION, CORNEA, EXCEPT PTERYGIUM (WRVU 7.5) performed by Juanpablo Hernandez MD at [facility] ??? PRO LAP, PARTIAL NEPHRECTOMY Left 06/28/2019 LAPAROSCOPY, PARTIAL NEPHRECTOMY, ROBOTIC ASSIST (WRVU 27.41) performed by Avila Medina MD at [facility] MAIN OR ??? 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 o Sun Exposure: Use broad spectrum, 30 SPF or higher, water resistant sunscreen with reapplication every 2 hours OR SPF clothing and limit your amount of direct sun exposure when possible. o Regular skin and lymph node self-examination should be performed. Please report any new lesions, lumps or bumps of concern to your interior wall assembler or oncology team. ? You should be [...] new symptoms or concerns. Leandra Lopes DNP, [employer] [facility] Return in 3 mos for stand alone US RTC in 6 mos with labs, clinic appointment and CT scan documented in this encounter Plan of Treatment Upcoming Encounters Date Type Department Care Team (Late st Contact Info) Description 06/28/2024 9:30 AM EST Office Visit Internal Medicine at [address] [phone] Daryn Garrett MD [facility]ILI [place] [address] 10/02/2024 1:00 PM EDT Office Visit [place] [address] Juanpablo Hernandez MD [facility] [place] [address] 01/30/2025 1:30 PM EDT Laboratory Appointment Lab at [facility] Hematology Oncology [address] [place] [phone] 01/30/2025 3:[address] [place] [address] Arturo Cordero MD [facility] HEMATOLOG[place] [address] 01/30/2025 4:15 PM EDT Office Visit Hematology [place] [address] Arturo Cordero MD [facility] DR HEMATOLOG[place] [address] Scheduled Procedures Name Priority Associated Diagnoses Date/Ti [...] questions please contact the health intensive care ambulance paramedic that requested your imaging first. ? Narrative [...] have questions please contactthe health intensive care ambulance paramedic that requested your imaging first. Electronically signed by: Davin Corbett MD, [facility]([phone]), at 12/24/2021 8:15 AM Leandra Lopes APRN IM CT ORDERABLES * CT Chest Abdomen [...] questions please contact the health intensive care ambulance paramedic that requested your imaging first. ? Electronically signed by: Milo Kaye MD, [facility] ([phone]), at 12/23/2021 3:09 PM Narrative 12/23/2021 3:09 [...] structures: No suspicious lesions. Procedure Note Milo Kyae MD - 12/23/2021 EXAMINATION: CT CHEST ABDOMEN [...] have questions please contactthe health intensive care ambulance paramedic that requested your imaging first. Leandra Lopes [employer] IMG CT ORDERABLES * US Soft Tissue Head Or Neck (11/17/2021 11:45 AM EDT) Anatomical Region Laterality Modality Ultrasound 11/17/2021 11:4 2 AM EDT Impressions 11/17/2021 12:00 PM EDT Morphologically normal-appearing lymph nodes in the left neck. No suspicious sonographic findings. Electronically signed by: Nakia Goetz MD, [facility] ([phone]), at 11/17/2021 11:51 AM Thank you for letting us participate in the care of this patient. If you are a health care provider and have any questions regarding this report, please contact the number above. For patients who have questions, please contact the health intensive care ambulance paramedic that requested your imaging first. ? Nakia Goetz, Staff Physician Electronically Signed Final Report ?? 11/17/2021 11:59 am Narrative 11/17/2021 12:00 PM EDT Ultrasound Soft Tissue ?(Signed Final 11/17/2021 11:59 am) Neck Left PATIENT INFO: ID #: ? [id number] ?: ??[birth year] (61 yrs)(F) Name: ? PATIENCE MANJARREZ ? Visit Date: 11/17/2021 11:42 am PERFORMED BY: Performed By: ? Diana Lowe RDMS Attending: ?Nakia Goetz MD. Referred By: ?LEANDRA LOPES Location: ? [place] SERVICE(S) PROVIDED: USTN - Soft Tissue Neck or Head - [id number] ? [id number] INDICATIONS: History of left eye conjunctival melanoma [...] am) Neck Left PATIENT INFO: ID #: [id number] : 58 (61 yrs)(F) Name: PATIENCE MANJARREZ Visit Date: 11/17/2021 11:42 am PERFORMED BY: Performed By: Diana Lowe RDMS Attending: Sofy COLVIN, Nakia Andrade Referred By: LEANDRA LOPES Location: [place] SERVICE(S) PROVIDED: USTN - Soft Tissue Neck or Head - [id number] INDICATIONS: History of left eye conjunctival melanoma [...] findings. Electronically signed by: Nakia Goetz MD, [facility] ([phone]), at 11/17/2021 11:51 AM Thank you for letting us participate in the care of this patient. If you are a health care provider and have any questions regarding this report, please contact the number above. For patients who have questions, please contact the health intensive care ambulance paramedic that requested your imaging first. Nakia Goetz, [...] site documented in this encounter Care Teams Air Bag Buffer Relationship Specialty Start Date End Date Luis E Narayan MD [facility]ILI [facility] [address] PCP - General Family Medicine 03/26/19 01/19/22 documented as of this encounter
--- OUTSIDE RECORDS SUMMARY | 2024-06-07 13:38 | XMS_ITS | Encounter Summary ---
Author Organization [facility] Address [facility] [place] [address] Care Team Providers Care Pugger Helper Name Role Phone Luis E Narayan MD Primary Care Provider [phone] Reason for Visit * Reason Comments Tearing Encounter Details Date Type Department Care Team (Late st Contact Info) Description 09/15/2020 3:00 PM EST Office [place] [address] Juanpablo Hernandez MD [facility] [place] [address] Malignant melanoma of conjunctiva, left; Keratitis Social [...] Office Visit Internal Medicine at [place] [address] [address] [phone] Daryn Garrett MD [facility] DR LILI AZEVEDO - [place] [address] 10/02/2024 1:00 PM EDT Office [place] [phone] Juanpablo Hernandez MD [facility] DR [place] [address] 01/30/2025 1:30 PM EDT Laboratory Appointment Lab at [facility] Hematology Oncology [address] [place] [phone] 01/30/2025 3:[address] [place] [address] Arturo Cordero MD [facility] HEMATOLOGY [place] [address] 01/30/2025 4:15 PM EDT Office Visit Hematology [place] [phone] Arturo Cordero MD [facility] DR HEMATOLOGY [place] [address] Scheduled Procedures Name Priority Associated Diagnoses Date/Ti me EGD, UPPER GI ENDOSCOPY (WRV U 2.09) Irritable bowel syndrome with constipation COLONOSCOPY, DIAGNOSTIC (WRV U 3.26) Irritable bowel syndrome with constipation documented as of this encounter Visit Diagnoses Diagnosis Malignant melanoma of conjunctiva, left Keratitis Unspecified keratitis documented in this encounter Care Teams Pugger Helper Relationship Specialty Start Date End Date Luis E Narayan MD [facility] DR LILI AZEVEDO-[place] [address] PCP - General Family Medicine 03/26/19 01/19/22 documented as of this encounter
--- OUTSIDE RECORDS SUMMARY | 2024-06-07 13:38 | XMS_ITS | Encounter Summary ---
Author Organization [facility] [place] [address] Care Team Providers Care Federal Judge Name Role Phone Luis E Narayan MD Primary Care Provider Reason for Referral * Diagnostic Test (Routine) - Closed Specialty Diagnoses / Procedures Referred By Contac t Referred To Contact Radiology Diagnoses Malignant melanoma of conjunctiva, left Procedures CT Neck Soft Tissue w Contrast (Generic) Arturo Cordero MD [facility] [address] [place] [address] [facility] [address] Referral ID Status Reason Start Date Expiration Date V isits Requested Visits Authorized [id number] Closed Specialty Service Requested 09/15/2020 03/18/2022 1 1 * Diagnostic Test (Routine) - Closed Specialty Diagnoses / Procedures Referred By Contac t Referred To Contact Radiology Diagnoses Malignant melanoma of conjunctiva, left Procedures CT Chest Abdomen Pelvis w Contrast (Generic) Arturo Cordero MD [facility] [address] [place] [address] [facility] [address] Referral ID Status Reason Start Date Expiration Date V isits Requested Visits Authorized [id number] Closed Specialty Service Requested 09/15/2020 03/18/2022 1 1 Reason for Visit * Reason Comments Follow-up Encounter Details Date Type Department Care Team (Late st Contact Info) Description 09/15/2020 11:30 AM EST Office Visit Hematology [place] [address] Arturo Cordero MD [facility] [address] [place] [address] Leandra Lopes APRN [facility] [place] [address] Malignant melanoma of conjunctiva, left Social History [...] from the original note were not included. [facility] CLINIC FOLLOW UP [...] - fall 2018: saw a new repairer recreational vehicle and was referred to Dr. 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 Medina - 03/31/2020: saw her repairer recreational vehicle Dr. Hernandez and was noted to have [...] uses inhalerswith good effect ??? Atherosclerosis of [place] coronary artery of [place] heart with angina pectoris 10/09/2007 History of [...] 3.47) performed by Juanpablo Hernandez MD at [facility] ??? PRO EXCIS CORNEA LESN Left 05/14/2020 EXCISION OF LESION, CORNEA, EXCEPT PTERYGIUM (WRVU 7.5) performed by Juanpablo Hernandez MD at [facility] ??? PRO LAP, PARTIAL NEPHRECTOMY Left 06/28/2019 LAPAROSCOPY, PARTIAL NEPHRECTOMY, ROBOTIC ASSIST (WRVU 27.41) performed by Avila Medina MD at [facility] MAIN OR ??? 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 [...] AM EST Office Visit Internal Medicine at [place] [address] [place] [address] Daryn Garrett MD [facility] LILI [place] [address] 10/02/2024 1:00 PM EDT Office Visit [place] [phone] Juanpablo Hernandez MD [facility] [place] [address] 01/30/2025 1:30 PM EDT Laboratory Appointment Lab at [facility] Hematology Oncology [address] [place] [phone] 01/30/2025 3:[address] [place] [phone] Arturo Cordero MD [facility] [address] [place] [address] 01/30/2025 4:15 PM EDT Office Visit Hematology [place] [phone] Arturo Cordero MD [facility] [address] [place] [address] Scheduled Procedures Name Priority Associated Diagnoses Date/Ti [...] questions please contact the health child care attendant school that requested your imaging first. ? Narrative [...] have questions please contactthe health child care attendant school that requested your imaging first. Arturo Cordero [...] questions please contact the health child care attendant school that requested your imaging first. ? Narrative [...] have questions please contactthe health child care attendant school that requested your imaging first. Arturo Cordero MD IM CT ORDERABLES * Lactate Dehydrogenase (12/17/2020 12:45 PM EDT) Lactate Dehydrogenase 205 110 - 220 unit/L [facility] Blood 12/17/2020 12:4 5 PM EDT 12/17/2020 12:51 PM EDT Narrative Resulting Agency Comment Spec In Lab Arturo Cordero MD CHEMISTRY ORDERABLES [facility] [place] [address] * (ABNORMAL) Comprehensive metabolic panel (non-fasting) (12/17/2020 [...] CHEMISTRY ORDERABLES [facility] [place] [address] documented in this encounter Visit Diagnoses Diagnosis Malignant melanoma of conjunctiva, left Malignant melanoma of conjunctiva, left documented in this encounter Care Teams Federal Judge Relationship Specialty Start Date End Date Luis E Narayan MD [facility] LILI [place] [address] PCP - General Family Medicine 03/26/19 01/19/22 documented as of this encounter
--- OUTSIDE RECORDS SUMMARY | 2024-06-07 13:38 | XMS_ITS | Encounter Summary ---
Author Organization [facility] Address [facility] [place] [address] Care Team Providers Care Safety Relief Valve Technician Name Role Phone Luis E Narayan MD Primary Care Provider Reason for Visit * Reason Comments Tearing Encounter Details Date Type Department Care Team (Late st Contact Info) Description 09/15/2020 12:15 PM EST Office [place] [address] Marco Antonio Godwin MD [facility] [place] [address] Malignant melanoma of conjunctiva, left Social History [...] to get to her PCP appointment at [facility]. We will arrange for punctal plug placement later this afternoon or tomorrow. OK to skip a dose of the [facility] in anticipation of plug being replaced. Sooner MYRA Maria. MD Tato documented in this encounter Plan of Treatment Upcoming Encounters Date Type Department Care Team (Late st Contact Info) Description 06/28/2024 9:30 AM EST Office Visit Internal Medicine at [facility] [address] [place] [address] Daryn Garrett MD [facility] DR LILI WALKER [place] [address] 10/02/2024 1:00 PM EDT Office [place] [phone] Juanpablo Hernandez MD [facility] [place] [address] 01/30/2025 1:30 PM EDT Laboratory Appointment Lab at [facility] [place] Oncology [address] [place] [phone] 01/30/2025 3:[address] [place] [phone] Arturo Cordero MD [facility] DR HEMATOLOGY [place] [address] 01/30/2025 4:15 PM EDT Office Visit Hematology [place] [phone] Arturo Cordero MD [facility] DR HEMATOLOGY [place] [address] Scheduled Procedures Name Priority Associated Diagnoses Date/Ti me EGD, UPPER GI ENDOSCOPY (WRV U 2.09) Irritable bowel syndrome with constipation COLONOSCOPY, DIAGNOSTIC (WRV U 3.26) Irritable bowel syndrome with constipation documented as of this encounter Visit Diagnoses Diagnosis Malignant melanoma of conjunctiva, left documented in this encounter Care Teams Safety Relief Valve Technician Relationship Specialty Start Date End Date Luis E Narayan MD [facility] DR LILI WALKER-[place] [address] PCP - General Family Medicine 03/26/19 01/19/22 documented as of this encounter
--- OUTSIDE RECORDS SUMMARY | 2024-06-07 13:38 | XMS_ITS | Encounter Summary ---
Author Organization [facility] [place] [address] Care Team Providers Care Rod Tape Operator Name Role Phone Luis E Narayan MD Primary Care Provider Encounter Details Date Type Department Care Team (Late st Contact Info) Description 09/21/2020 Telephone Family Medicine at [facility] [address] [place] [phone] Alejandra Posadas, RN Social History Tobacco Use [...] Miscellaneous Notes * Telephone Encounter - Alejandra Posaads RN - 09/23/2020 12:24 PM EDT Music Industry Intern returned call. He was wondering when patient was referred to [facility], advised referrals were made 05/10/2019 and 08/05/2019. Gave him their department number to speak about the wait time. * Telephone Encounter - Alejandra Posadas RN - 09/23/2020 11:56 AM EDT Faxed letter. Left massage at yarn man's office that I did this and invited him to call if anything else is needed of primary care. Placed in Medical records * Telephone Encounter - Luis E Narayan MD - 09/23/2020 11:52 AM EDT Letter done. * Telephone Encounter - Alejandra Posadas RN - 09/21/2020 8:53 AM EDT Called placed to Law office at [phone] They would like fax of prior communications sent back to them with those dates as well as a correspondence dated today with PCP's message: Dr. Narayan is not trained or equipped to make disability determinations. He believes that there are several specialists in the community who do this work, although he can't make any specific referrals. Law office fax is [phone] Forms are in media dated 08/20/20 Message 08/21 states forms were faxed back, although I don't see forms in scan docs with PCP commenton them documented in this encounter Plan of Treatment Upcoming Encounters Date Type Department Care Team (Late st Contact Info) Description 06/28/2024 9:30 AM EST Office Visit Internal Medicine at [address] [place] [phone] Daryn Garrett MD [facility] DR LILI [place] [address] 10/02/2024 1:00 PM EDT Office [place] [phone] Juanpablo Hernandez MD [facility] [place] [address] 01/30/2025 1:30 PM EDT Laboratory Appointment Lab at [facility] Hematology Oncology [address] [place] [phone] 01/30/2025 3:[address] [place] [place] [phone] Arturo Cordero MD [facility] [place] [address] 01/30/2025 4:15 PM EDT Office Visit [place]ology [place] [address] Arturo Cordero MD [facility] DR [place] [address] Scheduled Procedures Name Priority Associated Diagnoses Date/Ti me EGD, UPPER GI ENDOSCOPY (WRV U 2.09) Irritable bowel syndrome with constipation COLONOSCOPY, DIAGNOSTIC (WRV U 3.26) Irritable bowel syndrome with constipation documented as of this encounter Visit Diagnoses Not on filedocumented in this encounter Care Teams Rod Tape Operator Relationship Specialty Start Date End Date Luis E Narayan MD [facility] DR LILI [place] [address] PCP - General Family Medicine 03/26/19 01/19/22 documented as of this encounter
--- OUTSIDE RECORDS SUMMARY | 2024-06-07 13:38 | XMS_ITS | Encounter Summary ---
Author Organization [facility] [place] [address] Care Team Providers Care Coding Technician Name Role Phone Luis E Narayan MD Primary Care Provider [phone] Reason for Referral * Diagnostic Test (Routine) - Closed Specialty Diagnoses / Procedures Referred By Contac t Referred To Contact Radiology Diagnoses Malignant melanoma of conjunctiva, left Procedures CT Neck Soft Tissue w Contrast (Generic) Arturo Cordero MD [facility] DR HEMATOLOGY [place] [address] [facility] [place] [address] Referral ID Status Reason Start Date Expiration Date V isits Requested Visits Authorized [id number] Closed Specialty Service Requested 09/15/2020 03/18/2022 1 1 * Diagnostic Test (Routine) - Closed Specialty Diagnoses / Procedures Referred By Contac t Referred To Contact Radiology Diagnoses Malignant melanoma of conjunctiva, left Procedures CT Chest Abdomen Pelvis w Contrast (Generic) Arturo Cordero MD [facility] DR HEMATOLOGY [place] [address] [facility] [place] [address] Referral ID Status Reason Start Date Expiration Date V isits Requested Visits Authorized [id number] Closed Specialty Service Requested 09/15/2020 03/18/2022 1 1 Reason for Visit * Diagnostic Test (Routine) - Closed Specialty Diagnoses / Procedures Referred By Contac t Referred To Contact Radiology Diagnoses Malignant melanoma of conjunctiva, left Procedures CT Chest Abdomen Pelvis w Contrast (Generic) Arturo Cordero MD [facility] DR HEMATOLOGY [place] [address] [facility] [place] [address] Referral ID Status Reason Start Date Expiration Date V isits Requested Visits Authorized [id number] Closed Specialty Service Requested 09/15/2020 03/18/2022 1 1 Encounter Details Date Type Department Care Team (Latest Contact Info) Description 12/17/2020 12:17 PM EDT - 12/17/2020 12:28 PM EDT Hospital [place] [address] [facility] DR HEMATOLOGY [place] [address] Malignant melanoma of conjunctiva, left [...] mg by mouth daily. FreeStyle Sanjana 2 [place] MiscIndications:diabete s mellitus 1 each by Other [...] 09/15/2020 09/19/2023 fluticasone propionate (FLONASE) 50 mcg/actuation [place], Suspension 1 spray by Each Nare route [...] AM EST Office Visit Internal Medicine at [facility] [address] [place] [address] [facility] DR LILI AZEVEDO [place] [address] 10/02/2024 1:00 PM EDT Office [place] [address] [facility] [place] [address] 01/30/2025 1:30 PM EDT Laboratory Appointment Lab at [facility] [place] On[place] [address] [place] [phone] 01/30/2025 3:[address] Scan at [place] [phone] [facility] DR HEMATOLOG[place] [address] 01/30/2025 4:15 PM EDT Office Visit Hematology [place] [phone] [facility] [address] HEMATOLOGY [place] [address] Scheduled Procedures Name Priority Associated Diagnoses Date/Ti [...] have questions please contact the health career based intervention coordinator that requested your imaging first. ? [...] who have questions please contactthe health career based intervention coordinator that requested your imaging first. Arturo Cordero [...] have questions please contact the health career based intervention coordinator that requested your imaging first. ? [...] who have questions please contactthe health career based intervention coordinator that requested your imaging first. Arturo Cordero [...] mLs documented in this encounter Care Teams Coding Technician Relationship Specialty Start Date End Date Luis E Narayan MD [facility] [address] [place] [address] PCP - General Family Medicine 03/26/19 01/19/22 documented as of this encounter
--- OUTSIDE RECORDS SUMMARY | 2024-06-07 13:38 | XMS_ITS | Encounter Summary ---
Author Organization [facility] [place] [address] Care Team Providers Care Change Over Name Role Phone Luis E Narayan MD Primary Care Provider Reason for Visit * Reason Onset Date Comments Back Pain 10/20/2020 Encounter Details Date Type Department Care Team (Late st Contact Info) Description 10/20/2020 Refill Internal Medicine at [facility] [address] [place] [address] Cara Thomas, data coder operator bilateral low back pain without sciatica Social [...] the flexeril is called in, she should pick up attendant albert. Advised that before a steroid is [...] AM EST Office Visit Internal Medicine at [address] [address] Daryn Garrett MD [facility] DR LILI WALKER - PRIMARY CARE [place], [place] [phone] 10/02/2024 1:00 PM EDT Office [place] [address] Juanpablo Hernandez MD [facility] [place] [address] 01/30/2025 1:30 PM EDT Laboratory Appointment Lab at [facility] Hematology Oncology [address] [place] [phone] 01/30/2025 3:[address] [place] [address] Arturo Cordero MD [facility] HEMATOLOGY [place] [address] 01/30/2025 4:15 PM EDT Office Visit Hematology [place] [address] Arturo Cordero MD [facility] HEMATOLOGY [place] [address] Scheduled Procedures Name Priority Associated Diagnoses Date/Ti me EGD, UPPER GI ENDOSCOPY (WRV U 2.09) Irritable bowel syndrome with constipation COLONOSCOPY, DIAGNOSTIC (WRV U 3.26) Irritable bowel syndrome with constipation documented as of this encounter Visit Diagnoses Diagnosis Chronic bilateral low back pain without sciatica documented in this encounter Care Teams Change Over Relationship Specialty Start Date End Date Luis E Narayan MD [facility] [address] [place] [address] PCP - General Family Medicine 03/26/19 01/19/22 documented as of this encounter
--- OUTSIDE RECORDS SUMMARY | 2024-06-07 13:38 | XMS_ITS | Encounter Summary ---
[place] [address] Care Team Providers Care Licensed Mortician Name Role Phone Luis E Narayan MD Primary Care Provider Reason for Visit * Reason Comments Melanoma Encounter Details Date Type Department Care Team (Late st Contact Info) Description 08/28/2020 2:30 PM EST Office [place] [address] Juanpablo Hernandez MD [facility] [place] [address] Malignant melanoma of conjunctiva, left Social History [...] AM EST Office Visit Internal Medicine at [facility] [address] [place] [address] Daryn Garrett MD [facility] [address] [place] [address] 10/02/2024 1:00 PM EDT Office Visit Ophthalmology at [address] Juanpablo Hernandez MD [facility] [place] [address] 01/30/2025 1:30 PM EDT Laboratory Appointment Lab at [facility] [place] [address] [place] [address] 01/30/2025 3:[address] [place] [address] Arturo Cordero MD [facility] DR [place] [address] 01/30/2025 4:15 PM EDT Office Visit Hematology and Oncology at [place] [phone] Arturo Cordero MD [facility] DR [place] [address] Scheduled Procedures Name Priority Associated Diagnoses Date/Ti me EGD, UPPER GI ENDOSCOPY (WRV U 2.09) Irritable bowel syndrome with constipation COLONOSCOPY, DIAGNOSTIC (WRV U 3.26) Irritable bowel syndrome with constipation documented as of this encounter Visit Diagnoses Diagnosis Malignant melanoma of conjunctiva, left documented in this encounter Care Teams Licensed Mortician Relationship Specialty Start Date End Date Luis E Narayan MD [facility] DR LIL[address]EV[address] [address] PCP - General Family Medicine 03/26/19 01/19/22 documented as of this encounter
--- OUTSIDE RECORDS SUMMARY | 2024-06-07 13:38 | XMS_ITS | Encounter Summary ---
[place] [address] Care Team Providers Care Cylinder Press Feeder Name Role Phone Luis E Narayan MD Primary Care Provider Encounter Details Date Type Department Care Team (Late st Contact Info) Description 10/07/2020 Telephone [place] [phone] Malika Ye Social History Tobacco Use Types [...] EST Office Visit Internal Medicine at [facility] [address] [place] [address] Daryn Garrett MD [facility] DR LILI [place]EVED[place] [address] 10/02/2024 1:00 PM EDT Office [place] [phone] Juanpablo Hernandez MD [facility] [place] [address] 01/30/2025 1:30 PM EDT Laboratory Appointment Lab at [facility] Hematology Oncology [address] [place], [place] [phone] 01/30/2025 3:[address] Scan at [address] Arturo Cordero MD [facility] DR [place] [address] 01/30/2025 4:15 PM EDT Office Visit Hematology [place] [address] Arturo Cordero MD [facility] DR [place] [address] Scheduled Procedures Name Priority Associated Diagnoses Date/Ti me EGD, UPPER GI ENDOSCOPY (WRV U 2.09) Irritable bowel syndrome with constipation COLONOSCOPY, DIAGNOSTIC (WRV U 3.26) Irritable bowel syndrome with constipation documented as of this encounter Visit Diagnoses Not on filedocumented in this encounter Care Teams Cylinder Press Feeder Relationship Specialty Start Date End Date Luis E Narayan MD [facility] DR LILI [place] [address] PCP - General Family Medicine 03/26/19 01/19/22 documented as of this encounter
--- OUTSIDE RECORDS SUMMARY | 2024-06-07 13:38 | XMS_ITS | Encounter Summary ---
Author Organization [facility] [place] [address] Care Team Providers Care Front End Driver Name Role Phone Luis E Narayan MD Primary Care Provider [phone] Reason for Referral * Physical Therapy (Routine) - Closed Specialty Diagnoses / Procedures Referred By Gonzalez kumari Referred To Contact Physical Therapy Diagnoses Degenerative disc disease, lumbar Troy Moscoso PA [facility] DR LILI [place]ED[place] [address] Physical Therapy, [address] [address] Referral ID Status Reason Start Date Expiration Date V isits Requested Visits Authorized [id number] Closed Evaluate and Treat 10/21/2020 04/19/2021 12 12 Reason for Visit * Reason Comments Low Back Pain With Radicular Pain Encounter Details Date Type Department Care Team (Late st Contact Info) Description 10/21/2020 9:20 AM EDT Office Visit Internal Medicine at [facility] [address] [place] [address] Troy Moscoso, PA [facility] DR LILI [place]EV[place] [address] Type 2 diabetes mellitus without long-term current [...] 10/21/2020 9:20 AM EDT PRIMARY CARE AT [facility] [address] [facility] [address] CHIEF COMPLAINT Alize Gramajo is a 59 [...] 0 ??? fluticasone propionate (FLONASE) 50 mcg/actuation [place], Suspension, 1 spray by Each Nare route2 [...] Disp: 90 tablet, Rfl: 3 ??? lancets [facility], Use for twice daily testing, Disp: 100 each, Rfl: 11 ??? blood sugar diagnostic strips Strip, Use as instructed, Disp: 100 each, Rfl: 12 ??? Blood-Glucose Meter [facility], Use twice daily, Disp: 1 each, Rfl: [...] uses inhalerswith good effect ??? Atherosclerosis of eyak coronary artery of eyak heart with angina pectoris 10/09/2007 History of [...] 3.47) performed by Juanpablo Hernandez MD at [facility] ??? PRO EXCIS CORNEA LESN Left 05/14/2020 EXCISION OF LESION, CORNEA, EXCEPT PTERYGIUM (WRVU 7.5) performed by Juanpablo Hernandez MD at [facility] ??? PRO LAP, PARTIAL NEPHRECTOMY Left 06/28/2019 LAPAROSCOPY, PARTIAL NEPHRECTOMY, ROBOTIC ASSIST (WRVU 27.41) performed by Avila Medina MD at [facility] OR ??? PRO PLACE AMNIOTIC MEMBRANE OCULAR SURFACE;SINGLE LAYER SUTURED Left 05/14/2020 PLACEMENT OF AMNIOTIC MEMBRANE ON THE OCULAR SURFACE,SINGLE LAYER,SUTURED (WRVU 2.5) performed by Juanpablo Hernandez MD at [facility] FAMILY HISTORY Family History Problem [...] QTC Calculated (Bezet) 435 ms Calculated P [place] 53 degrees Calculated R [place] 3 degrees Calculated T [place] 54 degrees INTERPRETATION Normal sinus rhythm Normal ECG When compared with ECG of 14-FEB-2019 22:28, Aberrant conduction is no longer Present Confirmed by Radha Lawrence ([id number]) on 09/11/2020 7:23:38 PM PHYSICAL EXAM Gen: [...] in these patients send serum separator tube ([facility]) for subsequent determinations. Contact the Clinical Chemistry [...] meets the diagnosis for a myocardial infarction (TN). Detection of a rise and/or fall of cTnT, with at least one value greater than the 99th percentile (> or = 0.01) and with at least one of the following ?? Symptoms of ischemia ?? New or presumed new significant CQ-frmpdgu-Y wave (ST-T) changes or new left bundle [...] additional sample may be indicated. Reference: [employer] [place] Definition of Myocardial Infarction. Journal of the [place] College of Cardiology 2012;60:1581-98 ??? Ventricular rate 09/11/2020 75 BPM Final ??? Atrial Rate 09/11/2020 75 BPM Final ??? P-R Interval 09/11/2020 170 ms Final ??? QRS Duration 09/11/2020 92 ms Final ??? Q-T Interval 09/11/2020 390 ms Final ??? QTC Calculated (Bezet) 09/11/2020 435 ms Final ??? Calculated P [place] 09/11/2020 53 degrees Final ??? Calculated R [place] 09/11/2020 3 degrees Final ??? Calculated T [place] 09/11/2020 54 degrees Final ??? INTERPRETATION 09/11/2020 Final Value:Normal sinus rhythm Normal ECG When compared with ECG of 14-FEB-2019 22:28, Aberrant conduction is no longer Present Confirmed by Radha Lawrence ([id number]) on 09/11/2020 7:23:38 PM ??? WBC 09/11/2020 [...] Diagnosis Code ??? Coronary artery disease involving eyak coronary artery of eyak heart with angina pectoris I25.119 ??? Altered [...] Medicine at [facility] [address] [place] [address] Daryn Garrett MD [facility] DR LILI [place] [address] 10/02/2024 1:00 PM EDT Office [place] [address] Juanpablo Hernandez MD [facility] [place] [address] 01/30/2025 1:30 PM EDT Laboratory Appointment Lab at [facility] [place]ology On[place] [address] [place], [place] [phone] 01/30/2025 3:[address] Scan at [place] [phone] Arturo Cordero MD [facility] DR [place] [address] 01/30/2025 4:15 PM EDT Office Visit Hematology [place] [phone] Arturo Cordero MD [facility] [place] [address] Scheduled Procedures Name Priority Associated Diagnoses Date/Ti [...] Mellitus, Diabetes Care 2013; 36: Suppl. 1, S67-99 Estimated Average Glucose 177 mg/dL [facility] Comment: [...] into estimated average glucose values. ??Diabetes Care 2008:31(8):3210-8102. Blood specimen (specimen) 10/21/2020 10:20 AM EDT 10/21/2020 1:48 PM EDT Narrative Resulting Agency Comment Spec In Lab M Noreen [place] MD CHEMISTRY ORDERABLES [facility] [place] [address] documented in this encounter Visit Diagnoses Diagnosis Type 2 diabetes mellitus without long-term current use of insulin Degenerative disc disease, lumbar Degeneration of lumbar or lumbosacral intervertebral disc BPPV (benign paroxysmal positional vertigo), right documented in this encounter Care Teams Front End Driver Relationship Specialty Start Date End Date Luis E Narayan MD [facility] DR LIL[place] [address] PCP - General Family Medicine 03/26/19 01/19/22 documented as of this encounter
--- OUTSIDE RECORDS SUMMARY | 2024-06-07 13:38 | XMS_ITS | Encounter Summary ---
Author Organization [facility] Address [facility] [place] [address] Care Team Providers Care Novelty Maker Name Role Phone Luis E Narayan MD Primary Care Provider [phone] Reason for Visit * Reason Comments Follow-up Encounter Details Date Type Department Care Team (Late st Contact Info) Description 09/15/2020 1:30 PM EST Office Visit Internal Medicine at [facility] [address] [place] [address] Alejandra Corey MD [facility] GENERAL [place] [address] Acute URI; Acute non-recurrent maxillary sinusitis; Constipation, [...] turn your head so that it is senior care between looking straight ahead and looking to [...] Where can you learn more? Visit our Home [employer] information library at [email or web address] You can also view health information on [email or web address], your personal patient account. Log in or sign uptoday. Enter A855 in the search box to learn more about Jose L Maneuver for Vertigo: Exercises. Current as of: October 23, 2019?Content Version: 12.7 ?? [id number] Healthwise, [employer]. Care instructions adapted under license by [facility]. If you have questions about a medical condition or this instruction, always ask your healthcare professional. [employer] disclaims any warranty or liability for your [...] more? Visit our health information library at [email or web address] You can also view health information on gopogo, your personal patient account. Log in or sign uptoday. Enter P372 in the search box to learn more about Benign Paroxysmal Positional Vertigo (BPPV): CareInstructions. Current as of: October 23, 2019?Content Version: 12.7 ?? [employer]. Care instructions adapted under license by [facility]. If you have questions about a medical condition or this instruction, always ask your healthcare professional. [employer] disclaims any warranty or liability for your [...] with sore throat. This was evaluated at [facility]. She has some associated vertigo and [...] AM EST Office Visit Internal Medicine at [address] [address] Daryn Garrett MD [facility] DR LILI WALKER - [place] [address] 10/02/2024 1:00 PM EDT Office Visit [place] [phone] Juanpablo Hernandez MD [facility] [place] [place] [address] 01/30/2025 1:30 PM EDT Laboratory Appointment Lab at [facility] Hematology Oncology [address] [place] [phone] 01/30/2025 3:[address] [place] [address] Arturo Cordero MD [facility] HEMATOLOGY [place] [address] 01/30/2025 4:15 PM EDT Office Visit Hematology [place] [address] Arturo Cordero MD [facility] HEMATOLOGY [place] [address] Scheduled Procedures Name Priority Associated Diagnoses Date/Ti me EGD, UPPER GI ENDOSCOPY (WRV U 2.09) Irritable bowel syndrome with constipation COLONOSCOPY, DIAGNOSTIC (WRV U 3.26) Irritable bowel syndrome with constipation documented as of this encounter Visit Diagnoses Diagnosis Acute URI Acute upper respiratory infections of unspecified site Acute non-recurrent maxillary sinusitis Constipation, unspecified constipation type documented in this encounter Care Teams Novelty Maker Relationship Specialty Start Date End Date Luis E Narayan MD [facility] [address]-[place] [address] PCP - General Family Medicine 03/26/19 01/19/22 documented as of this encounter
--- OUTSIDE RECORDS SUMMARY | 2024-06-07 13:38 | XMS_ITS | Encounter Summary ---
Author Organization [facility] Address [facility] [place] [address] Care Team Providers Care Hydrate Thickener Operator Name Role Phone Luis E Narayan MD Primary Care Provider Reason for Visit * Reason Comments Cancer Encounter Details Date Type Department Care Team (Late st Contact Info) Description 09/30/2020 12:45 PM EDT Office [place] [address] Juanpablo Hernandez MD [facility] [place] [address] Malignant melanoma of conjunctiva, left Social History [...] AM EST Office Visit Internal Medicine at [place] [address] [place] [address] Daryn Garrett MD [facility] DR LILI [place] [address] 10/02/2024 1:00 PM EDT Office [place] [phone] Juanpablo Hernandez MD [facility] [place] [place] [address] 01/30/2025 1:30 PM EDT Laboratory Appointment Lab at [facility] Hematology Oncology [address] [place] [phone] 01/30/2025 3:[address] [place] [phone] Arturo Cordero MD [facility] DR HEMATOLOGY AND ONCOLOGY [place], [place] [phone] 01/30/2025 4:15 PM EDT Office Visit Hematology [place] [address] Arturo Cordero MD [facility] DR HEMATOLOGY AND ONCOLOGY [place], [place] [phone] Scheduled Procedures Name Priority Associated Diagnoses Date/Ti me EGD, UPPER GI ENDOSCOPY (WRV U 2.09) Irritable bowel syndrome with constipation COLONOSCOPY, DIAGNOSTIC (WRV U 3.26) Irritable bowel syndrome with constipation documented as of this encounter Visit Diagnoses Diagnosis Malignant melanoma of conjunctiva, left documented in this encounter Care Teams Hydrate Thickener Operator Relationship Specialty Start Date End Date Luis E Narayan MD [facility] [address] [place] [address] PCP - General Family Medicine 03/26/19 01/19/22 documented as of this encounter
--- OUTSIDE RECORDS SUMMARY | 2024-06-07 13:38 | XMS_ITS | Encounter Summary ---
Author Organization [facility] Address [facility] [place] [address] Care Team Providers Care Finisher Wallboard And Plasterboard Name Role Phone Luis E Narayan MD Primary Care Provider +1- [phone] Reason for Visit * Reason Onset Date Comments Medication Refill 10/30/2020 Encounter Details Date Type Department Care Team (Late st Contact Info) Description 10/30/2020 Refill Internal Medicine at [facility] [address] [place] [address] Troy Moscoso PA [facility] DR LILI [place] [address] Chronic bilateral low back pain without sciatica [...] EST Office Visit Internal Medicine at [address] [place] [phone] Daryn Garrett MD [facility] DR LILI [place] [address] 10/02/2024 1:00 PM EDT Office Visit [place] [phone] Juanpablo Hernandez MD [facility] [place] [address] 01/30/2025 1:30 PM EDT Laboratory Appointment Lab [place] [facility] [place] [address] [place] [phone] 01/30/2025 3:[address] [place] [address] Arturo Cordero MD [facility] [place] [address] 01/30/2025 4:15 PM EDT Office Visit Hematology [place] [phone] Arturo Cordero MD [facility] [place] [address] Scheduled Procedures Name Priority Associated Diagnoses Date/Ti me EGD, UPPER GI ENDOSCOPY (WRV U 2.09) Irritable bowel syndrome with constipation COLONOSCOPY, DIAGNOSTIC (WRV U 3.26) Irritable bowel syndrome with constipation documented as of this encounter Visit Diagnoses Diagnosis Chronic bilateral low back pain without sciatica documented in this encounter Care Teams Finisher Wallboard And Plasterboard Relationship Specialty Start Date End Date Luis E Narayan MD [facility] [address] [place] [address] PCP - General Family Medicine 03/26/19 01/19/22 documented as of this encounter
--- OUTSIDE RECORDS SUMMARY | 2024-06-07 13:38 | XMS_ITS | Encounter Summary ---
Author Organization [facility] [place] [address] Care Team Providers Care Plant Care Worker Name Role Phone Luis E Narayan MD Primary Care Provider +1- [phone] Reason for Visit * Reason Onset Date Comments Other 12/04/2020 Encounter Details Date Type Department Care Team (Late st Contact Info) Description 12/04/2020 Telephone Family Medicine at [facility] [address] [place] [address] Stoner, October L Other Social History Tobacco Use Types [...] RN - 12/10/2020 11:31 AM EDT Called [phone]. Left voicemail asking for patient to call back. Refer to [facility] on 12/05. Was read on 12/06. * Telephone Encounter - Lanye October Samy - 12/04/2020 4:41 PM EDT Message: Israel states that Dr. Cyr said she would call her today after talking with Dr. Narayan . Please call back to discuss Ask caller their first and last name and relationship to the patient: self Best time to call back: any Ok to leave a message: y Ok to send my- message: = Offered Appointment: MA/Nurse/[place]ord contacted via: Message: y Call: n Pager: n documented in this encounter Plan of Treatment Upcoming Encounters Date Type Department Care Team (Late st Contact Info) Description 06/28/2024 9:30 AM EST Office Visit Internal Medicine at [facility] [address] [place] [phone] Daryn Garrett MD [facility] [address] [place] [address] 10/02/2024 1:00 PM EDT Office [place] [phone] Juanpablo Hernandez MD [facility] [place] [address] 01/30/2025 1:30 PM EDT Laboratory Appointment Lab at [facility] [place] On[place] [address] [place] [phone] 01/30/2025 3:[address] [place] [address] Arturo Cordero MD [facility] [place] [address] 01/30/2025 4:15 PM EDT Office Visit Hematology [place] [address] Arturo Cordero MD [facility] [place] [address] Scheduled Procedures Name Priority Associated Diagnoses Date/Ti me EGD, UPPER GI ENDOSCOPY (WRV U 2.09) Irritable bowel syndrome with constipation COLONOSCOPY, DIAGNOSTIC (WRV U 3.26) Irritable bowel syndrome with constipation documented as of this encounter Visit Diagnoses Not on filedocumented in this encounter Care Teams Plant Care Worker Relationship Specialty Start Date End Date Luis E Narayan MD [facility] DR LILI [place] [address] PCP - General Family Medicine 03/26/19 01/19/22 documented as of this encounter
--- OUTSIDE RECORDS SUMMARY | 2024-06-07 13:38 | XMS_ITS | Encounter Summary ---
[place] [address] Care Team Providers Care Lumber Hacker Name Role Phone Luis E Narayan MD Primary Care Provider Encounter Details Date Type Department Care Team (Latest Contact Info) Description 09/15/2020 12:00 PM EST Clinical Support [place] [address] Malika Ye Cigarette nicotine dependence without complication [...] EST ..Tobacco Treatment Consultation [place] ([place] [address] FAX: Alize Gramajo is a 59 y.o. female seen today for smoking cessation counseling. She is currently smoking [place] gold and does wish to quit soon. [...] in places where it is forbidden? (ex. zoroastrianism) No Yes 1 3. Which cigarette would [...] The patient has been provided with a [facility] Smoking Cessation packet and offered a Forever [...] 34 Malika Ye 09/15/20 Tobacco Treatment Program [facility] documented in this encounter Plan of Treatment Upcoming Encounters Date Type Department Care Team (Late st Contact Info) Description 06/28/2024 9:30 AM EST Office Visit Internal Medicine at [address] [phone] Daryn Garrett MD [facility] DR L[place]I [place] [address] 10/02/2024 1:00 PM EDT Office [place] [address] Juanpablo Hernandez MD [facility] [place] [address] 01/30/2025 1:30 PM EDT Laboratory Appointment Lab at [facility] Hematology Oncology [address] [place] [phone] 01/30/2025 3:[address] [place] [address] Arturo Cordero MD [facility] [place] [address] 01/30/2025 4:15 PM EDT Office Visit Hematology [place] [address] Arturo Cordero MD [facility] [address] [place] [address] Scheduled Procedures Name Priority Associated Diagnoses Date/Ti me EGD, UPPER GI ENDOSCOPY (WRV U 2.09) Irritable bowel syndrome with constipation COLONOSCOPY, DIAGNOSTIC (WRV U 3.26) Irritable bowel syndrome with constipation documented as of this encounter Visit Diagnoses Diagnosis Cigarette nicotine dependence without complication Tobacco use disorder documented in this encounter Care Teams Lumber Hacker Relationship Specialty Start Date End Date Luis E Narayan MD [facility] [address] [place] [address] PCP - General Family Medicine 03/26/19 01/19/22 documented as of this encounter
--- OUTSIDE RECORDS SUMMARY | 2024-06-07 13:38 | XMS_ITS | Encounter Summary ---
Author Organization [facility] Address [facility] [place] [address] Care Team Providers Care Director Sales Support Name Role Phone Daryn Garrett MD Primary Care Provider Reason for Visit * Reason Onset Date Comments Medication Refill 09/12/2020 Encounter Details Date Type Department Care Team (Late st Contact Info) Description 09/12/2020 Refill Family Medicine at [facility] [address] [place] [address] Camilla Carrera MD [facility] [place] [address] Social History Tobacco Use Types Packs/Day Years [...] AM EST Office Visit Internal Medicine at [facility] [address] [place] [address] Daryn Garrett MD [facility] DR LILI W[place]ER [place] [address] 10/02/2024 1:00 PM EDT Office [place] [phone] Juanpablo Hernandez MD [facility] [place] [address] 01/30/2025 1:30 PM EDT Laboratory Appointment Lab at [facility] Hematology Oncology [address] [place] [phone] 01/30/2025 3:[address] [place] [address] Arturo Cordero MD [facility] DR HEMATOLOGY [place] [address] 01/30/2025 4:15 PM EDT Office Visit Hematology [place] [address] Arturo Cordero MD [facility] DR HEMATOLOGY [place] [address] Scheduled Procedures Name Priority Associated Diagnoses Date/Ti me EGD, UPPER GI ENDOSCOPY (WRV U 2.09) Irritable bowel syndrome with constipation COLONOSCOPY, DIAGNOSTIC (WRV U 3.26) Irritable bowel syndrome with constipation documented as of this encounter Visit Diagnoses Not on filedocumented in this encounter Care Teams Director Sales Support Relationship Specialty Start Date End Date Daryn Garrett MD [facility] DR LILI [place]ER [place] [address] PCP - General 04/10/24 documented as of this encounter
--- OUTSIDE RECORDS SUMMARY | 2024-06-07 13:38 | XMS_ITS | Encounter Summary ---
Author Organization [facility] Address [facility] [place] [address] Care Team Providers Care Industrial Gas Fitter Name Role Phone Luis E Narayan MD Primary Care Provider +1- [phone] Reason for Visit * Reason Onset Date Comments Triage 09/14/2020 Encounter Details Date Type Department Care Team (Late st Contact Info) Description 09/14/2020 Telephone Family Medicine at [facility] [address] [place] [address] Wendy Washington Triage Social History Tobacco Use [...] month, got a negative COVID Test at [facility] when the symptoms when started. Patient denies all urgent signs and symptoms at this time. Patient requested appointment on 09/15/20 to coordinate with other appointments. Appointment scheduled with Leora COLVIN on 09/15/20 @ [phone]. Patient reported understanding and agrees to plan [...] up for Chest Pain. Left message on [employer] voicemail to call back. * Telephone Encounter - Wendy Washington - 09/14/2020 8:16 AM EST Please call patient to discuss Emergency Room Follow Up Reason for the Emergency Room visit: Chest Pain Name of the facility where patient was seen: [facility] Symptomatic now: y Other information:Pt states [...] AM EST Office Visit Internal Medicine at [address] [phone] Darny Garrett MD [facility] [place] [address] 10/02/2024 1:00 PM EDT Office [place] [phone] Juanpablo Hernandez MD [facility] [address] 01/30/2025 1:30 PM EDT Laboratory Appointment Lab [place] [facility] [place] [address] [place] [phone] 01/30/2025 3:[address] [place] [place] [address] Arturo Cordero MD [facility] [place] [address] 01/30/2025 4:15 PM EDT Office Visit Hematology and Oncology at [facility], [place] [address] Arturo Cordero MD [facility] [place] [address] Scheduled Procedures Name Priority Associated Diagnoses Date/Ti me EGD, UPPER GI ENDOSCOPY (WRV U 2.09) Irritable bowel syndrome with constipation COLONOSCOPY, DIAGNOSTIC (WRV U 3.26) Irritable bowel syndrome with constipation documented as of this encounter Visit Diagnoses Not on filedocumented in this encounter Care Teams Industrial Gas Fitter Relationship Specialty Start Date End Date Luis E Narayan MD [facility] [address] [place] [address] PCP - General Family Medicine 03/26/19 01/19/22 documented as of this encounter
--- OUTSIDE RECORDS SUMMARY | 2024-06-07 13:38 | XMS_ITS | Encounter Summary ---
Author Organization [facility] [place] [address] Care Team Providers Care Associate Engineer Name Role Phone Luis E Narayan MD Primary Care Provider Encounter Details Date Type Department Care Team (Late st Contact Info) Description 09/14/2020 Telephone Family Medicine at [facility] [address] [place] [phone] Silvio Alonzo Social History Tobacco Use Types [...] EST Records faxed to law office at [phone] * Telephone Encounter - Silvio Alonzo - [...] Narayan MD Subject:Other Dr. Narayan, my disability outpatient clerk sent you some paperwork. I know you [...] EST Office Visit Internal Medicine at [address] [place] [phone] Daryn Garrett MD [facility] DR LILI [place] [address] 10/02/2024 1:00 PM EDT Office Visit [place] [phone] Juanpablo Hernandez MD [facility] [place] [address] 01/30/2025 1:30 PM EDT Laboratory Appointment Lab at [facility] [place] [address] [place] [phone] 01/30/2025 3:[address] [place] [phone] Arturo Cordero MD [facility] [place] [address] 01/30/2025 4:15 PM EDT Office Visit Hematology [place] [phone] Arturo Cordero MD [facility] [place] [address] Scheduled Procedures Name Priority Associated Diagnoses Date/Ti me EGD, UPPER GI ENDOSCOPY (WRV U 2.09) Irritable bowel syndrome with constipation COLONOSCOPY, DIAGNOSTIC (WRV U 3.26) Irritable bowel syndrome with constipation documented as of this encounter Visit Diagnoses Not on filedocumented in this encounter Care Teams Associate Engineer Relationship Specialty Start Date End Date Luis E Narayan MD [facility] [address] [place] [address] PCP - General Family Medicine 03/26/19 01/19/22 documented as of this encounter
--- OUTSIDE RECORDS SUMMARY | 2024-06-07 13:38 | XMS_ITS | Encounter Summary ---
Author Organization [facility] [place] [address] Care Team Providers Care Surgical Asst Name Role Phone Luis E Narayan MD Primary Care Provider Encounter Details Date Type Department Care Team (Latest Contact Info) Description 09/15/2020 9:26 AM EST - 09/15/2020 11:59 PM EST Hospital En[place] [address] Shane Vincent MD [facility] DR [place] [address] Malignant melanoma of conjunctiva, left Discharge Disposition: [...] 09/15/2020 10/21/2020 fluticasone propionate (FLONASE) 50 mcg/actuation [place], Suspension 1 spray by Each Nare route [...] AM EST Office Visit Internal Medicine at [address] [address] Daryn Garrett MD [facility] [address] LILI [place] [address] 10/02/2024 1:00 PM EDT Office [place] [address] Juanpablo Hernandez MD [facility] [place] [address] 01/30/2025 1:30 PM EDT Laboratory Appointment Lab at [facility] Hematology Oncology [address] [place] [phone] 01/30/2025 3:[address] [place] [address] Shane Vincent MD [facility] DR [place] [address] 01/30/2025 4:15 PM EDT Office Visit Hematology [place] [address] Shane Vincent MD [facility] DR [place] [address] Scheduled Procedures Name Priority Associated Diagnoses Date/Ti [...] -Left Neck PATIENT INFO: ID #: ? [id number] ?: ??[birth year] (59 yrs)(F) Name: ? ALIZE MANJARREZ ? Visit Date: 09/15/2020 09:42 am PERFORMED BY: Performed By: ? Kaela Bruno RDMS Attending: ?Nakia Goetz MD Referred By: ?SHANE VINCENT Location: ? [place] SERVICE(S) PROVIDED: USTN - Soft Tissue Neck or Head - [id number] ? [id number] INDICATIONS: History of left eye conjunctival melanoma [...] Report -Left Neck PATIENT INFO: ID #: [id number] : [birth year] (59 yrs)(F) Name: ALIZE MANJARREZ Visit Date: 09/15/2020 09:42 am PERFORMED BY: Performed By: Kaela Bruno RDMS Attending: Nakia Goetz MD Referred By: SHANE VINCENT Location: [place] SERVICE(S) PROVIDED: USTN - Soft Tissue Neck or Head - [id number] INDICATIONS: History of left eye conjunctival melanoma [...] Signed Final Report 09/15/2020 10:01 am Shane Vincent MD IMG US GEN ORDERABLE S documented in this encounter Visit Diagnoses Diagnosis Malignant melanoma of conjunctiva, left documented in this encounter Care Teams Surgical Asst Relationship Specialty Start Date End Date Luis E Narayan MD [facility] [address] [place] [address] PCP - General Family Medicine 03/26/19 01/19/22 documented as of this encounter
--- OUTSIDE RECORDS SUMMARY | 2024-06-07 13:38 | XMS_ITS | Encounter Summary ---
[place] [address] Care Team Providers Care Demonstrator Sales Name Role Phone Luis E Narayan MD Primary Care Provider Reason for Visit * Reason Comments Chest Pain Encounter Details Date Type Department Care Team (Late st Contact Info) Description 09/11/2020 2:09 PM EST - 09/11/2020 5:51 PM EST [place] [address] Hair Tanner MD [facility] DR [place] [address] Costochondritis; Constipation, unspecified constipation type Discharge Disposition: [...] be sent through Care Everywhere. * Costochondritis (Bruneian) * Constipation (Bruneian) documented in this encounter Medications at Time of Discharge Medication Sig Dispensed Refills Start Date End Date traZODone (Desyrel) 100 mg Tablet Take 1 tablet by mouth nightly. 90 tablet 3 06/26/2020 aspirin EC 81 mg Tablet, Delayed Release (E.C.) Take 81 mg by mouth daily. fluticasone propionate (FLONASE) 50 mcg/actuation [place], Suspension 1 spray by Each Nare route [...] 10/10. Notably, pt was recently seen at [facility] on 08/17 for unrelated chest pressure. She had mild stable troponin elevations and unremarkable ECHO documented below in ED course. Denies other chest pain today, SOB, nausea, vomiting, abd pain, dysuria, hematuria, bloody/black stool, fever, chills. PMH: Past Medical History: Diagnosis Date ??? Allergy ??? Antiplatelet or antithrombotic long-term use aspirin, plavix ??? Arthritis ??? Asthma uses inhalerswith good effect ??? Atherosclerosis of [place] coronary artery of [place] heart with angina pectoris 10/09/2007 History of [...] Hernandez MD at [facility] Social History:1PPD smoker, non-drinker, no [...] Doppler, and color-flow Echocardiogram Patient Location: Out-Patient Deck Engine Operator: Arlen Coker RDCS (AE) Indications: Chest pain, [...] below. Electronically signed by: Chantal Ley MD, [facility] ([phone]), at 09/11/2020 3:52 PM XR Abdomen Flat [...] [x] None Exposure [] Recent travel outside [place] [] Contact with known or suspected positive [...] 12/17 Pt sent to Urgent Care from [facility]. Pt sent ED from Urgent Care with print out of normal EKG . Pt A+Ox4, respirations even and unlabored, PWD, VSS with HTN, NAD. documented in this encounter Plan of Treatment Upcoming Encounters Date Type Department Care Team (Late st Contact Info) Description 06/28/2024 9:30 AM EST Office Visit Internal Medicine at [facility] [address] [place] [phone] Daryn Garrett MD [facility] DR LILI WALKER [place] [address] 10/02/2024 1:00 PM EDT Office [place] [address] Juanpablo Hernandez MD [facility] [place] [address] 01/30/2025 1:30 PM EDT Laboratory Appointment Lab at [facility] Hematology Oncology [address] [place] [phone] 01/30/2025 3:[address] [place] [address] Arturo Cordero MD [facility] DR HEMATOLOGY [place] [address] 01/30/2025 4:15 PM EDT Office Visit Hematology [place] [address] Arturo Cordero MD [facility] DR HEMATOLOGY [place] [address] Scheduled Procedures Name Priority Associated Diagnoses Date/Ti [...] interpretation and agree with the findings, Chantal Lye MD at 09/11/2020 3:52 PM Thank you for letting us participate in the care of this patient. For questions regarding this report, please contact the number below. ? Electronically signed by: Chantal Ley MD, [facility] ([phone]), at 09/11/2020 3:52 PM Narrative 09/11/2020 3:52 [...] PM EST) Gold Hold Sample in lab. [facility] Blood specimen (specimen) Venous Draw / Unknown 09/11/2020 2:45 PM EST 09/11/2020 2:55 PM EST Mal CARLIN CHEMISTRY ORDERABLES [facility] [place] [address] * Blue Tube HOLD (09/11/2020 2:45 PM EST) Pathologist [facility] Blue Hold Sample in lab. [facility] Blood specimen (specimen) Venous Draw / Unknown 09/11/2020 2:45 PM EST 09/11/2020 2:55 PM EST aMl [facility] [place] [address] * Differential, Automated (09/11/2020 2:45 PM EST) [facility] Neutrophil % 58.6 % [facility] Neutrophil Absolute 4.51 1.70 - 6.10 x10(3)/[facility] Lymph % 31.7 % [facility] Lymphocytes Abs 2.4 0.9 - 3.2 x10(3)/[facility] Monocyte % 7.4 % [facility] Monocyte Abs 0.6 0.3 - 0.9 x10(3)/[facility] Eos % 1.4 % [facility] Eosinophils Abs 0.1 0.0 - 0.4 x10(3)/[facility] Basophil % 0.6 % [facility] Baso Absolute 0.0 0.0 - 0.1 x10(3)/[facility] Immature Gran % 0.30 % [facility] Comment: Immature granulocytes(IG's)percentage and absolute count will include metamyelocytes, myelocytes, and promyelocytes. Blood smears from CBCs yielding IG's will be scanned manually for concordance. If this scan disagrees with the automated IG or if promyelocytes are noted, a manual differential will be performed. Immature Gran Absolute 0.02 0.00 - 0.04 x10(3)/[facility] Blood specimen (specimen) 09/11/2020 2:45 PM EST 09/11/2020 2:54 PM EST Narrative Resulting Agency Comment Spec In Lab Mal CARLIN HEMATOLOGY ORDERABLE S [facility] [place] [address] * (ABNORMAL) Hemogram (09/11/2020 2:45 PM EST) White Blood Cell 7.7 4.0 - 9.5 x10(3)/mc L [facility] Red Blood Cell 4.76 4.00 - 5.21 x10(6)/mc L [facility] Hemoglobin 13.7 11.7 [...] Standard Deviation 41.8 37.0 - 46.0 fL [facility] RDW coefficient of variation 13.3 11.5 - 14.1 % [facility] Mean Platelet Volume 9.0 7.6 - 12.9 fL [facility] NRBC% auto 0.0 % [facility] NRBC Absolute 0.000 0.000 - 0.000 x10(3)/mc L [facility] Blood specimen (specimen) 09/11/2020 2:45 PM EST 09/11/2020 2:54 PM EST Narrative Resulting Agency Comment Spec In Lab Mal CARLIN HEMATOLOGY ORDERABLE S Performing Organization Address [facility]/ZIP Co de Phone Number [facility] [place] [address] * Troponin (09/11/2020 2:45 PM EST) Pathologist [facility] Troponin-T <0.01 0.00 - 0.00 ng/mL [facility] Comment: The 99th percentile for Troponin T is less than 0.01 ng/mL, any detectable cTnT concentration using this assay should be considered elevated. According to the third universal definition of myocardial infarction the following criteria with a clinical presentation consistent with acute myocardial ischemia meets the diagnosis for a myocardial infarction (NM). Detection of a rise and/or fall of cTnT, with at least one value greater than the 99th percentile (> or = 0.01) and with at least one of the following ?? Symptoms of ischemia ?? New or presumed new significant [place]-pcisxsb-X wave (ST-T) changes or new left bundle [...] additional sample may be indicated. Reference: Third Pratt Definition of Myocardial Infarction. Journal of the [place] College [employer] 2012;60:1581-98 Blood specimen (specimen) 09/11/2020 2:45 PM EST 09/11/2020 2:54 PM EST Narrative Resulting Agency Comment Spec In Lab Juanpablo Nelson MD CHEMISTRY ORDERABLES Performing Organization Address [facility]/ZIP Co de Phone Number [facility] [place] [address] * Lipase (09/11/2020 2:45 PM EST) [facility] Lipase 38 0 - 60 unit/L [facility] Blood specimen (specimen) 09/11/2020 2:45 PM EST 09/11/2020 2:54 PM EST Narrative Resulting Agency Comment Spec In Lab Juanpablo Nelson MD CHEMISTRY ORDERABLES Performing Organization Address [facility] Co de Phone Number [facility] [place] [address] * (ABNORMAL) Hepatic Function Panel (09/11/2020 2:45 PM EST) [facility] Protein, Total 7.5 6.1 - 8.0 [...] Nelson MD CHEMISTRY ORDERABLES Performing Organization Address [facility] Co de Phone Number [facility] [place] [address] * Basic Metabolic Panel (non-fasting) (09/11/2020 2:45 PM EST) [facility] Glucose 89 65 - 199 mg/dL [...] Nelson MD CHEMISTRY ORDERABLES [facility] [place] [address] * EKG 12 Lead (09/11/2020 2:20 PM EST) Ventricular rate 75 BPM MUSE SYSTEM Atrial Rate 75 BPM MUSE SYSTEM P-R Interval 170 ms MUSE SYSTEM QRS Duration 92 ms MUSE SYSTEM Q-T Interval 390 ms MUSE SYSTEM QTC Calculated (Bezet) 435 ms MUSE SYSTEM Calculated P [place] 53 degrees MUSE SYSTEM Calculated R [place] 3 degrees MUSE SYSTEM Calculated T [place] 54 degrees MUSE SYSTEM INTERPRETATION Normal sinus rhythm Normal ECG When compared with ECG of 14-FEB-2019 22:28, Aberrant conduction is no longer Present Confirmed by Radha Lawrence ([id number]) on 09/11/2020 7:23:38 PM MUSE SYSTEM 09/11/2020 2:20 PM EST 09/11/2020 7:23 PM EST Juanpablo Nelson MD ECG ORDERABLES [place] [facility] documented in this encounter Visit Diagnoses [...] NRP) documented in this encounter Care Teams Demonstrator Sales Relationship Specialty Start Date End Date Luis E Narayan MD [facility] DR LILI WALKER-[place] [address] PCP - General Family Medicine 03/26/19 01/19/22 documented as of this encounter
--- OUTSIDE RECORDS SUMMARY | 2024-06-07 13:38 | XMS_ITS | Encounter Summary ---
Author Organization [facility] [place] [address] Care Team Providers Care Genomics Scientist Name Role Phone Luis E Narayan MD Primary Care Provider Encounter Details Date Type Department Care Team (Late st Contact Info) Description 10/21/2020 Telephone Internal Medicine at [facility] [address] [place] [phone] Post, Christine Pablo Social History Tobacco Use [...] 4:18 PM EDT Good Afternoon, Clinical secretary to board of commissioners called patient and left a voicemail to please call back [facility] Primary Care at [phone]. When patient calls back please assist with scheduling an appointment with Luis E Narayan MD in regards to lab follow-up. Thank you, Christine documented in this encounter Plan of Treatment Upcoming Encounters Date Type Department Care Team (Late st Contact Info) Description 06/28/2024 9:30 AM EST Office Visit Internal Medicine at [facility] [address] [place] [address] Daryn Garrett MD [facility] DR LILI [place] [address] 10/02/2024 1:00 PM EDT Office [place] [address] Juanpablo Hernandez MD [facility] [address] 01/30/2025 1:30 PM EDT Laboratory Appointment Lab [place] [facility] [place] [address] [place] [phone] 01/30/2025 3:[address] [place] [phone] Arturo Cordero MD [facility] [place] [address] 01/30/2025 4:15 PM EDT Office Visit Hematology [place] [phone] Arturo Cordero MD [facility] [address] [place] [address] Scheduled Procedures Name Priority Associated Diagnoses Date/Ti me EGD, UPPER GI ENDOSCOPY (WRV U 2.09) Irritable bowel syndrome with constipation COLONOSCOPY, DIAGNOSTIC (WRV U 3.26) Irritable bowel syndrome with constipation documented as of this encounter Visit Diagnoses Not on filedocumented in this encounter Care Teams Genomics Scientist Relationship Specialty Start Date End Date Luis E Narayan MD [facility] [address] [place] [address] PCP - General Family Medicine 03/26/19 01/19/22 documented as of this encounter
--- OUTSIDE RECORDS SUMMARY | 2024-06-07 13:38 | XMS_ITS | Encounter Summary ---
Author Organization [facility] [place] [address] Care Team Providers Care Bone Worker Name Role Phone Luis E Narayan MD Primary Care Provider Encounter Details Date Type Department Care Team (Late st Contact Info) Description 11/03/2020 Telephone Family Medicine at [facility] [address] [place] [phone] Thania Flores, RN Social History Tobacco Use [...] Department Care Team (Cornelius Contact Info) Description 06/28/2024 9:30 AM EST Office Visit Internal Medicine at [facility] [address] [place] [phone] Daryn Garrett MD [facility] DR LILI [place] [address] 10/02/2024 1:00 PM EDT Office [place] [address] Juanpablo Hernandez MD [facility] [place] [address] 01/30/2025 1:30 PM EDT Laboratory Appointment Lab [place] [facility] [place] [address] [place] [phone] 01/30/2025 3:[address] [place] [phone] Arturo Cordero MD [facility] DR [place] [address] 01/30/2025 4:15 PM EDT Office Visit Hematology [place] [phone] Arturo Cordero MD [facility] DR [place] [address] Scheduled Procedures Name Priority Associated Diagnoses Date/Ti me EGD, UPPER GI ENDOSCOPY (WRV U 2.09) Irritable bowel syndrome with constipation COLONOSCOPY, DIAGNOSTIC (WRV U 3.26) Irritable bowel syndrome with constipation documented as of this encounter Visit Diagnoses Not on filedocumented in this encounter Care Teams Bone Worker Relationship Specialty Start Date End Date Luis E Narayan MD [facility] DR L[address] [place] [address] PCP - General Family Medicine 03/26/19 01/19/22 documented as of this encounter
--- OUTSIDE RECORDS SUMMARY | 2024-06-07 13:38 | XMS_ITS | Encounter Summary ---
Author Organization [facility] [place] [address] Care Team Providers Care Tuft Machine Operator Name Role Phone Luis E Narayan MD Primary Care Provider [phone] Encounter Details Date Type Department Care Team (Latest Contact Info) Description 12/17/2020 12:29 PM EDT - 12/17/2020 11:59 PM EDT Hospital Encounter Hematology [place] [address] Malignant melanoma of conjunctiva, left Discharge Disposition: [...] mg by mouth daily. FreeStyle Sanj[place] 2 [place] MiscIndications:diabete s mellitus 1 each by Other [...] 09/15/2020 09/19/2023 fluticasone propionate (FLONASE) 50 mcg/actuation [place], Suspension 1 spray by Each Nare route [...] AM EST Office Visit Internal Medicine at [facility] [address] [place] [phone] Daryn Garrett MD [facility] DR LILI AZEVEDO - [place] [address] 10/02/2024 1:00 PM EDT Office [place] [address] Juanpablo Hernandez MD [facility] [place] [address] 01/30/2025 1:30 PM EDT Laboratory Appointment Lab [place] [facility] [place] [address] [place] [phone] 01/30/2025 3:[address] [place] [address] Arturo Cordero MD [facility] DR HEMATOLOGY [place] [address] 01/30/2025 4:15 PM EDT Office Visit Hematology [place] [address] Arturo Cordero MD [facility] DR HEMATOLOGY [place] [address] Scheduled Orders Name Type Priority Associated Diagnoses Orde r Schedule Lactate Dehydrogenase Lab Routine Malignant melanoma of conjunctiva, left 1 Occurrences starting 12/17/2020 until 12/17/2020 Comprehensive metabolic panel (non-fasting) Lab Routine Malignant melanoma of conjunctiva, left 1 Occurrences starting 12/17/2020 until 12/17/2020 CBC (with Diff) Lab Routine Malignant melanoma of conjunctiva, left 1 Occurrences starting 12/17/2020 until 12/17/2020 Scheduled Procedures Name Priority Associated Diagnoses Date/Ti [...] Blood (12/17/2020 12:45 PM EDT) Pathologist [facility] Plat estimate Normal [facility] RBC Morphology Normal [facility] Blood 12/17/2020 12:4 5 PM EDT 12/17/2020 12:51 PM EDT Narrative Resulting Agency Comment Spec In Lab Arturo Cordero MD HEMATOLOGY ORDERABLE S [facility] [place] [address] * Differential, Automated (12/17/2020 12:45 PM EDT) [facility] Neutrophil % 58.0 % [facility] Neutrophil Absolute 3.91 1.70 - 6.10 x10(3)/[facility] Lymph % 29.9 % [facility] Lymphocytes Abs 2.0 0.9 - 3.2 x10(3)/[facility] Monocyte % 9.2 % [facility] Monocyte Abs 0.6 0.3 - 0.9 x10(3)/[facility] Eos % 1.9 % [facility] Eosinophils Abs 0.1 0.0 - 0.4 x10(3)/[facility] Basophil % 0.9 % [facility] Baso Absolute 0.1 0.0 - 0.1 x10(3)/[facility] Immature Gran % 0.10 % [facility] Comment: Immature granulocytes(IG's)percentage and absolute count will include metamyelocytes, myelocytes, and promyelocytes. Blood smears from CBCs yielding IG's will be scanned manually for concordance. If this scan disagrees with the automated IG or if promyelocytes are noted, a manual differential will be performed. Immature Gran Absolute 0.01 0.00 - 0.04 x10(3)/[facility] Blood 12/17/2020 12:4 5 PM EDT 12/17/2020 12:51 PM EDT Narrative Resulting Agency Comment Spec In Lab Arturo Cordero MD HEMATOLOGY ORDERABLE S [facility] [place] [address] * (ABNORMAL) Hemogram (12/17/2020 12:45 PM EDT) White Blood Cell 6.8 4.0 - 9.5 x10(3)/[facility] Red Blood Cell 4.44 4.00 - 5.21 x10(6)/[facility] Hemoglobin 12.8 11.7 - 15.5 gm/dL [facility] Hematocrit 38.3 35.7 - 45.8 % [facility] Mean Cell Volume 86.3 82.6 - 94.[address] [facility] Mean Cell Hemoglobin 28.8 27.1 - 32.[address] [facility] Mean Cell Hemoglobin Concentration 33.4 31.7 - 35.0 gm/dL [facility] Platelet 351 145 - 357 x10(3)/[facility] RDW Standard Deviation 45.1 37.0 - 46.[address] [facility] RDW coefficient of variation 14.2(H) 11.5 - 14.1 % [facility] Mean Platelet Volume 9.6 7.6 - 12.[address] [facility] NRBC% auto 0.0 % [facility] NRBC Absolute 0.000 0.000 - 0.000 x10(3)/mc L [facility] Blood 12/17/2020 12:4 5 PM EDT 12/17/2020 12:51 PM EDT Narrative Resulting Agency Comment Spec In Lab Arturo Cordero MD HEMATOLOGY ORDERABLE S [facility] [place] [address] * (ABNORMAL) Comprehensive metabolic panel (non-fasting) (12/17/2020 12:45 PM EDT) Glucose 220(H) 65 - 199 mg/dL [facility] Comment:Diabetes: >=200 mg/d L plus symptoms Blood Urea Nitrogen 15 8 - 18 mg/dL [facility] Creatinine 0.94 0.70 - 1.20 mg/dL [facility] Sodium 139 135 - 145 mmol/L [facility] Potassium 4.2 3.5 - 5.0 mmol/L [facility] Comment: Please note: ??Patients with WBC >100,000 may have falsely elevated Potassium levels. ??For accurate Potassium quantification in these patients send serum separator tube (gold top) for subsequent determinations. ??Contact the Clinical Chemistry Laboratory if there are any questions. Chloride 104 98 - 107 mmol/L [facility] Carbon Dioxide 26 22 - 31 mmol/L [facility] Anion Gap 9 5 - 15 mmol/L [facility] Calcium 9.5 8.5 - 10.5 mg/dL [facility] Protein, Total 6.7 6.1 - 8.0 gm/dL [facility] Albumin 4.2 3.2 - 5.2 gm/dL [facility] Aspartate Aminotransferase 21 0 - 30 unit/L [facility] Alanine Aminotransferase 24 0 - 30 unit/L [facility] Alkaline Phosphatase 97 35 - 105 unit/L [facility] Bilirubin, Total 0.5 0.2 - 1.3 mg/dL [facility] Est Glomerular Filtration Rate 65 >=60 mL/min/1. 73 m?? [facility] Comment: This patient? s estimated [...] In Lab Arturo Cordero MD CHEMISTRY ORDERABLES [facility] [place] [address] * Lactate Dehydrogenase (12/17/2020 12:45 PM EDT) Lactate Dehydrogenase 205 110 - 220 unit/L [facility] Blood 12/17/2020 12:4 5 PM EDT 12/17/2020 12:51 PM EDT Narrative Resulting Agency Comment Spec In Lab Arturo Cordero MD CHEMISTRY ORDERABLES [facility] [place] [address] documented in this encounter Visit Diagnoses Diagnosis Malignant melanoma of conjunctiva, left documented in this encounter Care Teams Tuft Machine Operator Relationship Specialty Start Date End Date Luis E Narayan MD [facility] DR LILI AZEVEDO-[facility] [place] [address] PCP - General Family Medicine 03/26/19 01/19/22 documented as of this encounter
--- OUTSIDE RECORDS SUMMARY | 2024-06-07 13:38 | XMS_ITS | Encounter Summary ---
Author Organization [facility] Address [facility] [place] [address] Care Team Providers Care Projector Operator Name Role Phone Daryn Garrett MD Primary Care Provider Reason for Visit * Reason Onset Date Comments Medication Refill 09/12/2020 Encounter Details Date Type Department Care Team (Late st Contact Info) Description 09/12/2020 Refill Family Medicine at [facility] [address] [place] [address] Luis E Narayan MD [facility] DR LILI [place] [address] Social History Tobacco Use Types Packs/Day Years [...] AM EST Office Visit Internal Medicine at [facility] [address] [place] [address] Daryn Garrett MD [facility] DR LILI [place] [address] 10/02/2024 1:00 PM EDT Office [place] [phone] Juanpablo Hernandez MD [facility] [place] [address] 01/30/2025 1:30 PM EDT Laboratory Appointment Lab at [facility] Hematology Oncology [address] [place] [phone] 01/30/2025 3:[address] [place] [place] [address] Arturo Cordero MD [facility] DR [place] [address] 01/30/2025 4:15 PM EDT Office Visit [place] [address] Arturo Cordero MD [facility] DR [place] [address] Scheduled Procedures Name Priority Associated Diagnoses Date/Ti me EGD, UPPER GI ENDOSCOPY (WRV U 2.09) Irritable bowel syndrome with constipation COLONOSCOPY, DIAGNOSTIC (WRV U 3.26) Irritable bowel syndrome with constipation documented as of this encounter Visit Diagnoses Not on filedocumented in this encounter Care Teams Projector Operator Relationship Specialty Start Date End Date Daryn Garrett MD [facility] DR LILI [place] [address] PCP - General 04/10/24 documented as of this encounter
--- OUTSIDE RECORDS SUMMARY | 2024-06-07 13:38 | XMS_ITS | Encounter Summary ---
Author Organization [facility] [place] [address] Care Team Providers Care Readers' Advisory Service Librarian Name Role Phone Luis E Narayan MD Primary Care Provider [phone] Reason for Visit * Reason Comments Eye Problem Malignant melanoma o f conjunctiva, left Encounter Details Date Type Department Care Team (Late st Contact Info) Description 11/06/2020 3:15 PM EDT Office [place] [address] Juanpablo Hernandez MD [facility] [place] [address] Malignant melanoma of conjunctiva, left Social History [...] EST Office Visit Internal Medicine at [address] [phone] Daryn Garrett MD [facility] DR LILI [place]ER [place] [address] 10/02/2024 1:00 PM EDT Office [place] [phone] Juanpablo Hernandez MD [facility] [place] [address] 01/30/2025 1:30 PM EDT Laboratory Appointment Lab at [facility] Hematology Oncology [address] [place] [phone] 01/30/2025 3:[address] [place] [address] Arturo Cordero MD [facility] DR HEMATOLOGY [place] [address] 01/30/2025 4:15 PM EDT Office Visit Hematology [place] [address] Arturo Cordero MD [facility] DR HEMATOLOGY [place] [address] Scheduled Procedures Name Priority Associated Diagnoses Date/Ti me EGD, UPPER GI ENDOSCOPY (WRV U 2.09) Irritable bowel syndrome with constipation COLONOSCOPY, DIAGNOSTIC (WRV U 3.26) Irritable bowel syndrome with constipation documented as of this encounter Visit Diagnoses Diagnosis Malignant melanoma of conjunctiva, left documented in this encounter Care Teams Readers' Advisory Service Librarian Relationship Specialty Start Date End Date Luis E Narayan MD [facility] [address] [place] [address] PCP - General Family Medicine 03/26/19 01/19/22 documented as of this encounter
--- OUTSIDE RECORDS SUMMARY | 2024-06-07 13:38 | XMS_ITS | Encounter Summary ---
[place] [address] Care Team Providers Care Washhouse Worker Name Role Phone Luis E Narayan MD Primary Care Provider Encounter Details Date Type Department Care Team (Late st Contact Info) Description 12/10/2020 E-[place]ult [place] [phone] Julia Low, [facility] Medication management Social History Tobacco Use Types [...] Miscellaneous Notes * E-Consult - Julia Faustin [facility] - 12/10/2020 8:16 AM EDT Select F2 [...] your test results may be less accurate. https://www.[facility].org/diseases-conditions/diabetes/expert-answers/blood-glu cose-monitors/faq-67263763 Reviewed test claims: Freestyle Sanjana 2 sensors [...] while using the Sensor. See your health senior care manager to understand how long ascorbic acid is active in your body. https://www.[employer].espinoza/us-en/safety-information.html This eConsult is focused on the specific [...] AM EST Office Visit Internal Medicine at [address] [place] [address] Daryn Garrett MD [facility] DR LILI [place] [address] 10/02/2024 1:00 PM EDT Office [place] [phone] Juanpablo Hernandez MD [facility] [place] [address] 01/30/2025 1:30 PM EDT Laboratory Appointment Lab at [facility] Hematology Oncology [address] [place], [place] [phone] 01/30/2025 3:[address] Scan at [place] [phone] Arturo Cordero MD [facility] DR HEMATOLOGY [place] [address] 01/30/2025 4:15 PM EDT Office Visit Hematology and Oncology at [place] [phone] Arturo Cordero MD [facility] DR HEMATOLOGY [place] [address] Scheduled Procedures Name Priority Associated Diagnoses Date/Ti me EGD, UPPER GI ENDOSCOPY (WRV U 2.09) Irritable bowel syndrome with constipation COLONOSCOPY, DIAGNOSTIC (WRV U 3.26) Irritable bowel syndrome with constipation documented as of this encounter Visit Diagnoses Diagnosis Medication management Encounter for long-term (current) use of other medications documented in this encounter Care Teams Washhouse Worker Relationship Specialty Start Date End Date Luis E Narayan MD [facility] [address] [place] [address] PCP - General Family Medicine 03/26/19 01/19/22 documented as of this encounter
--- OUTSIDE RECORDS SUMMARY | 2024-06-07 13:38 | XMS_ITS | Encounter Summary ---
Author Organization [facility] Address [facility] [place] [address] Care Team Providers Care Engineering Faculty Member Name Role Phone Luis E Narayan MD Primary Care Provider Reason for Referral * E-Consultation (Routine) - Closed Specialty Diagnoses / Procedures Referred By Gonzalez kumari Referred To Contact Pharmacy Diagnoses Type 2 diabetes mellitus with hyperglycemia, without long-term current use of insulin Procedures eConsult to [facility] (Primary Care Use Only) Erik Cyr MD [facility] [place] [address] Referral ID Status Reason Start Date Expiration Date Visits Re quested Visits Authorized [id number] Closed 12/04/2020 12/04/2021 1 1 Reason for [...] EDT TH Visit (TeleHealth) Family Medicine at [facility] [address] [place] [address] Erik Cyr MD [facility] [place] [address] Type 2 diabetes mellitus without [...] this encounter Progress Notes * Cinda George, [facility] - 12/03/2020 2:00 PM EDT Patient contacted at [phone] Preferred phone: [phone] Patient confirms location for visit as: [place] (not eligible for telehealth visit if outside of [place] & should reschedule when back) Home address: [address] [place] [phone] If phone visit: patient verbally consents to [...] location: [place]: [place] [address] Mode of communication documented under telehealth requirements as appropriate Callback number if video visit: Preferred phone number on file: [phone] CHART REVIEW Made appointment for high blood [...] Diagnosis Code ??? 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 Altered [...] 0 ??? fluticasone propionate (FLONASE) 50 mcg/actuation [place], Suspension 1 spray by Each Nare route [...] minutes 12/10/2020: Received pharmacy e-consult recommendations: Recommend [employer] system, which they say is covered by [...] EST Office Visit Internal Medicine at [address] [phone] Daryn Garrett MD [facility] DR LILI [place] [address] 10/02/2024 1:00 PM EDT Office [place] [phone] Juanpablo Hernandez MD [facility] [place] [address] 01/30/2025 1:30 PM EDT Laboratory Appointment Lab at [facility] Hematology Oncology [address] [place] [phone] 01/30/2025 3:[address] [place] [phone] Arturo Cordero MD [facility] [place] [address] 01/30/2025 4:15 PM EDT Office Visit Hematology [place] [phone] Arturo Cordero MD [facility] [address] [place] [address] Scheduled Procedures Name Priority Associated Diagnoses Date/Ti me EGD, UPPER GI ENDOSCOPY (WRV U 2.09) Irritable bowel syndrome with constipation COLONOSCOPY, DIAGNOSTIC (WRV U 3.26) Irritable bowel syndrome with constipation documented as of this encounter Visit Diagnoses Diagnosis Type 2 diabetes mellitus without long-term current use of insulin- Primary documented in this encounter Care Teams Engineering Faculty Member Relationship Specialty Start Date End Date Luis E Narayan MD [facility] [address] [place] [address] PCP - General Family Medicine 03/26/19 01/19/22 documented as of this encounter
--- OUTSIDE RECORDS SUMMARY | 2024-06-07 13:38 | XMS_ITS | Encounter Summary ---
Author Organization [facility] [place] [address] Care Team Providers Care Respiratory Tech Name Role Phone Luis E Narayan MD Primary Care Provider Encounter Details Date Type Department Care Team (Late st Contact Info) Description 09/11/2020 Telephone Family Medicine at [facility] [address] [place] [phone] Shannon Ward, RN Social History Tobacco Use [...] EST Office Visit Internal Medicine at [address] [phone] Daryn Garrett MD [facility] DR LILI WALKER - PRIMARY CARE [place], [place] [phone] 10/02/2024 1:00 PM EDT Office [place] [address] Juanpablo Hernandez MD [facility] [place] [address] 01/30/2025 1:30 PM EDT Laboratory Appointment Lab at [facility] Hematology Oncology [address] [place] [phone] 01/30/2025 3:[address] [place] [address] Arturo Cordero MD [facility] [place] [address] 01/30/2025 4:15 PM EDT Office Visit Hematology and Oncology at [facility] [place] [address] Arturo Cordero MD [facility] DR [place] [address] Scheduled Procedures Name Priority Associated Diagnoses Date/Ti me EGD, UPPER GI ENDOSCOPY (WRV U 2.09) Irritable bowel syndrome with constipation COLONOSCOPY, DIAGNOSTIC (WRV U 3.26) Irritable bowel syndrome with constipation documented as of this encounter Visit Diagnoses Not on filedocumented in this encounter Care Teams Respiratory Tech Relationship Specialty Start Date End Date Luis E Narayan MD [facility] DR LILI [place] [address] PCP - General Family Medicine 03/26/19 01/19/22 documented as of this encounter
--- OUTSIDE RECORDS SUMMARY | 2024-06-07 13:38 | XMS_ITS | Encounter Summary ---
Author Organization [facility] Address [facility] [place] [address] Care Team Providers Care Multimedia Instructional Designer Name Role Phone Luis E Narayan MD Primary Care Provider [phone] Reason for Visit * Reason Onset Date Comments Other 08/24/2020 Encounter Details Date Type Department Care Team (Late Contact Info) Description 08/24/2020 Telephone Family Medicine at [facility] [address] [place] [address] Gia Bruce Other Social History [...] Department Care Team (Late Contact Info) Description 06/28/2024 9:30 AM EST Office Visit Internal Medicine at [facility] [address] [place] [address] Daryn Garrett MD [facility] DR LILI [place] [address] 10/02/2024 1:00 PM EDT Office [place] [address] Juanpablo Hernandez MD [facility] [place] [address] 01/30/2025 1:30 PM EDT Laboratory Appointment Lab at [facility] Hematology Oncology [address] [place] [phone] 01/30/2025 3:[address] [place] [address] Arturo Cordero MD [facility] DR HEMATOLOGY [place] [address] 01/30/2025 4:15 PM EDT Office Visit Hematology [place] [phone] Arturo Cordero MD [facility] DR [place] [address] Scheduled Procedures Name Priority Associated Diagnoses Date/Ti me EGD, UPPER GI ENDOSCOPY (WRV U 2.09) Irritable bowel syndrome with constipation COLONOSCOPY, DIAGNOSTIC (WRV U 3.26) Irritable bowel syndrome with constipation documented as of this encounter Visit Diagnoses Not on filedocumented in this encounter Care Teams Multimedia Instructional Designer Relationship Specialty Start Date End Date Luis E Narayan MD [facility] DR LILI [place] [address] PCP - General Family Medicine 03/26/19 01/19/22 documented as of this encounter
--- OUTSIDE RECORDS SUMMARY | 2024-06-07 13:38 | XMS_ITS | Encounter Summary ---
Author Organization [facility] [place] [address] Care Team Providers Care Building Energy Retrofit Technician Name Role Phone Luis E Narayan MD Primary Care Provider Encounter Details Date Type Department Care Team (Late st Contact Info) Description 08/24/2020 Telephone Internal Medicine at [facility] [address] [place] [address] Debbie Brice, CCMA Social History [...] AM EST Office Visit Internal Medicine at [facility] [address] [place] [address] Daryn Garrett MD [facility] DR LIL[place] [address] 10/02/2024 1:00 PM EDT Office Visit Ophthalmology at [address] Juanpablo Hernandez MD [facility] [place] [address] 01/30/2025 1:30 PM EDT Laboratory Appointment Lab at [facility] Hematology Oncology [address] [place] [address] 01/30/2025 3:[address] Scan at [place] [phone] Arturo Cordero MD [facility] DR [place] [address] 01/30/2025 4:15 PM EDT Office Visit Hematology and Oncology at [address] Arturo Cordero MD [facility] DR [place] [address] Scheduled Procedures Name Priority Associated Diagnoses Date/Ti me EGD, UPPER GI ENDOSCOPY (WRV U 2.09) Irritable bowel syndrome with constipation COLONOSCOPY, DIAGNOSTIC (WRV U 3.26) Irritable bowel syndrome with constipation documented as of this encounter Visit Diagnoses Not on filedocumented in this encounter Care Teams Building Energy Retrofit Technician Relationship Specialty Start Date End Date Luis E Narayan MD [facility] DR LILI [place] [address] PCP - General Family Medicine 03/26/19 01/19/22 documented as of this encounter
--- OUTSIDE RECORDS SUMMARY | 2024-06-07 13:39 | XMS_ITS | Encounter Summary ---
Author Organization [facility] Address [facility] [place] [address] Care Team Providers Care Diesel Engine Mechanic Apprentice Name Role Phone Luis E Narayan MD Primary Care Provider [phone] Encounter Details Date Type Department Care Team (Latest Contact Info) Description 08/24/2020 6:00 PM EST TH Visit (TeleHealth) Family Medicine at [facility] [address] [place] [address] Earl Valdez MD [facility] DR LILI [place] [address] Atypical chest pain Social History Tobacco Use [...] was seen in an emergency room at [facility] on 08/17.This was for chest pressure. [...] EST Office Visit Internal Medicine at [address] [address] Daryn Garrett MD [facility] DR LILI [place] [address] 10/02/2024 1:00 PM EDT Office [place] [phone] Juanpablo Hernandez MD [facility] [place] [address] 01/30/2025 1:30 PM EDT Laboratory Appointment Lab at [facility] Hematology Oncology [address] [place] [phone] 01/30/2025 3:[address] [place] [address] Arturo Cordero MD [facility] H[place]ATOLOGY [place] [address] 01/30/2025 4:15 PM EDT Office Visit [place]ology [place] [address] Arturo Cordero MD [facility] HEMATOLOGY [place] [address] Scheduled Procedures Name Priority Associated Diagnoses Date/Ti me EGD, UPPER GI ENDOSCOPY (WRV U 2.09) Irritable bowel syndrome with constipation COLONOSCOPY, DIAGNOSTIC (WRV U 3.26) Irritable bowel syndrome with constipation documented as of this encounter Visit Diagnoses Diagnosis Atypical chest pain Other chest pain documented in this encounter Care Teams Diesel Engine Mechanic Apprentice Relationship Specialty Start Date End Date Luis E Narayan MD [facility] [address] [place] [address] PCP - General Family Medicine 03/26/19 01/19/22 documented as of this encounter
--- OUTSIDE RECORDS SUMMARY | 2024-06-07 13:39 | XMS_ITS | Encounter Summary ---
Author Organization [facility] Address [facility] [place] [address] Care Team Providers Care Band Saw Operator Cake Cutting Name Role Phone Luis E Narayan MD Primary Care Provider [phone] Reason for Visit * Reason Onset Date Comments Medication Refill 06/11/2020 Encounter Details Date Type Department Care Team (Late st Contact Info) Description 06/11/2020 [place] [address] Juanpablo Hernandez MD [facility] [place] [address] Conjunctival tumor Social History Tobacco Use Types [...] AM EST Office Visit Internal Medicine at [facility] [address] [place] [phone] Daryn Garrett MD [facility] DR LILI WALKER [place] [address] 10/02/2024 1:00 PM EDT Office [place] [address] Juanpablo Hernandez MD [facility] [place] [address] 01/30/2025 1:30 PM EDT Laboratory Appointment Lab at [facility] [place]ematology Oncology [address] [place] [phone] 01/30/2025 3:[address] [place] [address] Arturo Cordero MD [facility] DR HEMATOLOGY [place] [address] 01/30/2025 4:15 PM EDT Office Visit [place]ematology [place] [address] Arturo Cordero MD [facility] DR HEMATOLOGY [place] [address] Scheduled Procedures Name Priority Associated Diagnoses Date/Ti me EGD, UPPER GI ENDOSCOPY (WRV U 2.09) Irritable bowel syndrome with constipation COLONOSCOPY, DIAGNOSTIC (WRV U 3.26) Irritable bowel syndrome with constipation documented as of this encounter Visit Diagnoses Diagnosis Conjunctival tumor Neoplasms of unspecified nature, other specified sites documented in this encounter Care Teams Band Saw Operator Cake Cutting Relationship Specialty Start Date End Date Luis E Narayan MD [facility] [address] [place] [address] PCP - General Family Medicine 03/26/19 01/19/22 documented as of this encounter
--- OUTSIDE RECORDS SUMMARY | 2024-06-07 13:39 | XMS_ITS | Encounter Summary ---
Author Organization Formerly [facility] [place] [address] Care Team Providers Care Elevating Grader Operator Name Role Phone Luis E Narayan MD Primary Care Provider [phone]- [phone] Reason for Visit * Reason Onset Date Comments Follow-up 08/14/2020 Encounter Details Date Type Department Care Team (Late st Contact Info) Description 08/14/2020 Telephone [place] [address] Juanpablo Hernandez MD [facility] [place] [address] Follow-up Social History Tobacco Use Types Packs/Day [...] afternoon and wouldgive her a ring tomorrow. [phone] * Telephone Encounter - Chantell Dukes - [...] still can't see the claim made from [employer]. We went around and she states that [...] that it needed more information and the [facility] to submit a claim. [facility] pharmacy called back and spoke with Hillary to state that they do not compound. I called [facility] pharmacy and spoke with a [...] walked me through the PA process for [place] [employer] and where to find the forms. They also gave me the name of 2 pharmacies that compound. I left a message for [facility] to see if they compound mytomicin drops. I also called the other pharmacy [facility] tosee if they compound mytomicin into drops and they do not. Working on PA to send in today documented in this encounter Plan of Treatment Upcoming Encounters Date Type Department Care Team (Late st Contact Info) Description 06/28/2024 9:30 AM EST Office Visit Internal Medicine at [facility] [address] [place] [phone] Daryn Garrett MD [facility] DR LILI AZEVEDO [place] [address] 10/02/2024 1:00 PM EDT Office Visit Ophthalmology at [place] [address] Juanpablo Hernandez MD [facility] DR [place] [address] 01/30/2025 1:30 PM EDT Laboratory Appointment Lab at [facility] Hematology Oncology [address] [place] [address] 01/30/2025 3:[address] Scan at [place] [address] Arturo Cordero MD [facility] DR HEMATOLOGY [place] [address] 01/30/2025 4:15 PM EDT Office Visit Hematology and Oncology at [address] Arturo Cordero MD [facility] DR HEMATOLOGY [place] [address] Scheduled Procedures Name Priority Associated Diagnoses Date/Ti me EGD, UPPER GI ENDOSCOPY (WRV U 2.09) Irritable bowel syndrome with constipation COLONOSCOPY, DIAGNOSTIC (WRV U 3.26) Irritable bowel syndrome with constipation documented as of this encounter Visit Diagnoses Not on filedocumented in this encounter Care Teams Elevating Grader Operator Relationship Specialty Start Date End Date Luis E Narayan MD [facility] [address]-[place] [address] PCP - General Family Medicine 03/26/19 01/19/22 documented as of this encounter
--- OUTSIDE RECORDS SUMMARY | 2024-06-07 13:39 | XMS_ITS | Encounter Summary ---
Author Organization [facility] [place] [address] Care Team Providers Care Gear Lapping Machine Operator Name Role Phone Luis E Narayan MD Primary Care Provider [phone] Encounter Details Date Type Department Care Team (Late st Contact Info) Description 08/17/2020 Notes Only [place]ematology [place] [address] Boogie Munroe MD [facility] DR HEMATOLOGY/[place] [address] Social History Tobacco Use Types Packs/Day Years [...] at [facility] [address] [place] [phone] Daryn Garrett MD [facility] [address] LILI W[place]ER [place] [address] 10/02/2024 1:00 PM EDT Office Visit Ophthalmology at [place] [phone] Juanpablo Hernandez MD [facility] [address] 01/30/2025 1:30 PM EDT Laboratory Appointment Lab at [facility] Hematology Oncology [address] [place] [phone] 01/30/2025 3:[address] [place] [address] Arturo Cordero MD [facility] DR HEMATOLOGY [place] [address] 01/30/2025 4:15 PM EDT Office Visit Hematology [place] [phone] Arturo Cordero MD [facility] DR HEMATOLOGY [place] [address] Scheduled Procedures Name Priority Associated Diagnoses Date/Ti me EGD, UPPER GI ENDOSCOPY (WRV U 2.09) Irritable bowel syndrome with constipation COLONOSCOPY, DIAGNOSTIC (WRV U 3.26) Irritable bowel syndrome with constipation documented as of this encounter Visit Diagnoses Not on filedocumented in this encounter Care Teams Gear Lapping Machine Operator Relationship Specialty Start Date End Date Luis E Narayan MD [facility] [address] LILI WALKER[place] [address] PCP - General Family Medicine 03/26/19 01/19/22 documented as of this encounter
--- OUTSIDE RECORDS SUMMARY | 2024-06-07 13:39 | XMS_ITS | Encounter Summary ---
Author Organization [facility] [place] [address] Care Team Providers Care Photograph Inspector Name Role Phone Luis E Narayan MD Primary Care Provider [phone] Reason for Referral * Diagnostic Test (Routine) - Closed Specialty Diagnoses / Procedures Referred By Contac t Referred To Contact Radiology Diagnoses Ocular melanoma, left Procedures MRI Brain wwo Contrast (Generic) Sri Frederick MD [facility] DR HEMATOLOGY/[place] [address] [place] [address] Referral ID Status Reason Start Date Expiration Date V isits Requested Visits Authorized [id number] Closed Specialty Service Requested 05/26/2020 11/23/2021 1 1 Reason for Visit * Diagnostic Test (Routine) - Closed Specialty Diagnoses / Procedures Referred By Contac t Referred To Contact Radiology Diagnoses Ocular melanoma, left Procedures MRI Brain wwo Contrast (Generic) Sri Frederick MD [facility] HEMATOLOGY/[place] [address] [place] [address] Referral ID Status Reason Start Date Expiration Date V isits Requested Visits Authorized [id number] Closed Specialty Service Requested 05/26/2020 11/23/2021 1 1 Encounter Details Date Type Department Care Team (Latest Contact Info) Description 06/12/2020 2:05 PM EST - 06/12/2020 3:31 PM EST Hospital Encounter MRI at [facility] [place] [address] Arturo Cordero MD [facility] DR HEMATOLOGY [place] [address] Ocular melanoma, left Discharge Disposition: Home Social [...] 08/05/2019 06/14/2021 fluticasone propionate (FLONASE) 50 mcg/actuation [place], Suspension 1 spray by Each Nare route [...] AM EST Office Visit Internal Medicine at [facility] [address] [place] [phone] Daryn Garrett MD [facility] DR LILI AZEVEDO [place] [address] 10/02/2024 1:00 PM EDT Office Visit [place] [phone] Juanpablo Hernandez MD [facility] [place] [address] 01/30/2025 1:30 PM EDT Laboratory Appointment Lab at [facility] Hematology Oncology [address] [place] [phone] 01/30/2025 3:[address] [place] [phone] Arturo Cordero MD [facility] DR HEMATOLOGY [place] [address] 01/30/2025 4:15 PM EDT Office Visit Hematology [place] [phone] Arturo Cordero MD [facility] DR HEMATOLOGY [place] [address] Scheduled Procedures Name Priority Associated Diagnoses Date/Ti [...] mLs documented in this encounter Care Teams Photograph Inspector Relationship Specialty Start Date End Date Luis E Narayan MD [facility] [place] [address] PCP - General Family Medicine 03/26/19 01/19/22 documented as of this encounter
--- OUTSIDE RECORDS SUMMARY | 2024-06-07 13:39 | XMS_ITS | Encounter Summary ---
Author Organization [facility] [place] [address] Care Team Providers Care Research & Analytics Manager Name Role Phone Luis E Narayan MD Primary Care Provider Encounter Details Date Type Department Care Team (Latest Contact Info) Description 07/22/2020 10:04 AM EST - 07/22/2020 11:59 PM [facility] Hospital Encounter Mammography/[place] [address] Luis E Narayan MD [facility] [address] LILI [place] [address] Encounter for screening mammogram for breast cancer [...] 08/05/2019 06/14/2021 fluticasone propionate (FLONASE) 50 mcg/actuation [place], Suspension 1 spray by Each Nare route [...] AM EST Office Visit Internal Medicine at [address] [address] Daryn Garrett MD [facility] [address] L[place] [address] 10/02/2024 1:00 PM EDT Office [place] [phone] Juanpablo Hernandez MD [facility] [place] [address] 01/30/2025 1:30 PM EDT Laboratory Appointment Lab at [facility] Hematology Oncology [address] [place] [phone] 01/30/2025 3:[address] [place] [address] Arturo Cordero MD [facility] [place] [address] 01/30/2025 4:15 PM EDT Office Visit Hematology [place] [address] Arturo Cordero MD [facility] [place] [address] Scheduled Procedures Name Priority Associated Diagnoses Date/Ti [...] cancer documented in this encounter Care Teams Research & Analytics Manager Relationship Specialty Start Date End Date Luis E Narayan MD [facility] [place] [address] PCP - General Family Medicine 03/26/19 01/19/22 documented as of this encounter
--- OUTSIDE RECORDS SUMMARY | 2024-06-07 13:39 | XMS_ITS | Encounter Summary ---
Author Organization [facility] [place] [address] Care Team Providers Care Electrical Engineering Draftsperson Name Role Phone Luis E Narayan MD Primary Care Provider [phone]- [phone] Encounter Details Date Type Department Care Team (Late st Contact Info) Description 08/21/2020 Telephone Family Medicine at [facility] [address] [place] [address] Prakashiker, Lacie L Social History Tobacco Use [...] information. I did send back to the patient financial counselor with that comment. My recommednation is for herto schedule with a physician who does disability evaluations. Most auto body repairer fiberglass have a list of physicians who do that work. I am not sure who around here does. We can discuss at next visit if she wants. thanks * Telephone Encounter - Silvio Alonzo - 08/21/2020 3:15 PM EST Records requested faxed to [facility] * Telephone Encounter - Thomas Tyson RN - 08/21/2020 2:36 PM EST Patient Alize called in today to request results from EKG, ECHO, and labs from [facility]. Patient identity confirmed by full name and . Patient reports she was seen at the ED at [facility] for chest pressure with sob. Patient states [...] letters sent to our office from her patient financial counselor. Patient had no further questions or concerns anddid not want a follow up at this time. documented in this encounter Plan of Treatment Upcoming Encounters Date Type Department Care Team (Late st Contact Info) Description 06/28/2024 9:30 AM EST Office Visit Internal Medicine at [address] [phone] Daryn Garrett MD [facility] DR LILI [place] [address] 10/02/2024 1:00 PM EDT Office [place] [phone] Juanpablo Hernandez MD [facility] [place] [address] 01/30/2025 1:30 PM EDT Laboratory Appointment Lab at [facility] Hematology Oncology [address] [place] [phone] 01/30/2025 3:[address] [place] [address] Arturo Cordero MD [facility] [place] [address] 01/30/2025 4:15 PM EDT Office Visit Hematology [place] [address] Arturo Cordero MD [facility] [place] [address] Scheduled Procedures Name Priority Associated Diagnoses Date/Ti me EGD, UPPER GI ENDOSCOPY (WRV U 2.09) Irritable bowel syndrome with constipation COLONOSCOPY, DIAGNOSTIC (WRV U 3.26) Irritable bowel syndrome with constipation documented as of this encounter Visit Diagnoses Not on filedocumented in this encounter Care Teams Electrical Engineering Draftsperson Relationship Specialty Start Date End Date Luis E Narayan MD [facility] [address] [place] [address] PCP - General Family Medicine 03/26/19 01/19/22 documented as of this encounter
--- OUTSIDE RECORDS SUMMARY | 2024-06-07 13:39 | XMS_ITS | Encounter Summary ---
[place] [address] Care Team Providers Care Data Acquisition Technician Name Role Phone Luis E Narayan MD Primary Care Provider Reason for Visit * Reason Onset Date Comments Prior Authorization 06/29/2020 nicotine (NI COTROL) 10 mg Cartridge Encounter Details Date Type Department Care Team (Late st Contact Info) Description 06/29/2020 Telephone Family Medicine at [facility] [address] [place] [phone] Aida Aguayo CMA Prior Authorization (nicotine (NICOTROL) [...] Authorization for Primary [place] [address] DENIED: Nicotrol Case/Reference #: [id number] Additional Information from Insurance: The patient has [...] Authorization for Primary [place] [address] Request received via: [facility] Patient: Alize Gramajo Patient : 1960 Insurance Company: [place] Sent via: [employer] [place]: [id number] Physician: Luis E Narayan MD Medication Requested: [...] EST Office Visit Internal Medicine at [address] [place] [address] Daryn Garrett MD [facility] DR LILI AZEVEDO [place] [address] 10/02/2024 1:00 PM EDT Office [place] [phone] Juanpablo Hernandez MD [facility] [place] [address] 01/30/2025 1:30 PM EDT Laboratory Appointment Lab at [facility] Hematology Oncology [address] [place] [phone] 01/30/2025 3:[address] Scan at [place] [phone] Arturo Cordero MD [facility] HEMATOLOGY [place] [address] 01/30/2025 4:15 PM EDT Office Visit Hematology [place] [phone] Arturo Cordero MD [facility] [address] [place] [address] Scheduled Procedures Name Priority Associated Diagnoses Date/Ti me EGD, UPPER GI ENDOSCOPY (WRV U 2.09) Irritable bowel syndrome with constipation COLONOSCOPY, DIAGNOSTIC (WRV U 3.26) Irritable bowel syndrome with constipation documented as of this encounter Visit Diagnoses Not on filedocumented in this encounter Care Teams Data Acquisition Technician Relationship Specialty Start Date End Date Luis E Narayan MD [facility] DR LILI [place] [address] PCP - General Family Medicine 03/26/19 01/19/22 documented as of this encounter
--- OUTSIDE RECORDS SUMMARY | 2024-06-07 13:39 | XMS_ITS | Encounter Summary ---
Author Organization [facility] [place] [address] Care Team Providers Care Bowling Ball Assembler Name Role Phone Luis E Narayan MD Primary Care Provider Reason for Visit * Reason Onset Date Comments Questions 08/18/2020 Encounter Details Date Type Department Care Team (Late st Contact Info) Description 08/18/2020 Telephone Family Medicine at [facility] [address] [place] [phone] Susanna Lopes, AIRCRAFT MAINTENANCE SUPERVISOR Questions Social History Tobacco Use Types Packs/Day [...] send my- message: N Offered Appointment: N MA/Nurse/[place] contacted via: Message: Y Call: N Pager: N documented in this encounter Plan of Treatment Upcoming Encounters Date Type Department Care Team (Late st Contact Info) Description 06/28/2024 9:30 AM EST Office Visit Internal Medicine at [facility] [address] [place] [address] Daryn Garrett MD [facility] DR LILI [place]ER [place] [address] 10/02/2024 1:00 PM EDT Office [place] [phone] Juanpablo Hernandez MD [facility] [place] [address] 01/30/2025 1:30 PM EDT Laboratory Appointment Lab at [facility] Hematology Oncology [address] [place] [phone] 01/30/2025 3:[address] [place] [phone] Arturo Cordero MD [facility] DR HEMATOLOGY [place] [address] 01/30/2025 4:15 PM EDT Office Visit Hematology [place] [phone] Arturo Cordero MD [facility] DR HEMATOLOGY [place] [address] Scheduled Procedures Name Priority Associated Diagnoses Date/Ti me EGD, UPPER GI ENDOSCOPY (WRV U 2.09) Irritable bowel syndrome with constipation COLONOSCOPY, DIAGNOSTIC (WRV U 3.26) Irritable bowel syndrome with constipation documented as of this encounter Visit Diagnoses Not on filedocumented in this encounter Care Teams Bowling Ball Assembler Relationship Specialty Start Date End Date Luis E Narayan MD [facility] [address] [place] [address] PCP - General Family Medicine 03/26/19 01/19/22 documented as of this encounter
--- OUTSIDE RECORDS SUMMARY | 2024-06-07 13:39 | XMS_ITS | Encounter Summary ---
Author Organization [facility] Address [facility] [place] [address] Care Team Providers Care Linux Systems Engineer Name Role Phone Luis E Narayan MD Primary Care Provider [phone]- [phone] Reason for Visit * Reason Onset Date Comments Medication Refill 06/22/2020 Encounter Details Date Type Department Care Team (Late st Contact Info) Description 06/22/2020 Refill Family Medicine at [facility] [address] [place] [phone] Bonny Emanuel MD [address] [place] [address] Mixed hyperlipidemia Social History Tobacco Use Types [...] EST Office Visit Internal Medicine at [facility] [address] [place] [phone] Daryn Garrett MD [facility] [address] L[place] [address] 10/02/2024 1:00 PM EDT Office Visit Ophthalmology at [place] [address] Juanpablo Hernandez MD [facility] [place] [address] 01/30/2025 1:30 PM EDT Laboratory Appointment Lab at [facility] Hematology Oncology [address] [place] [address] 01/30/2025 3:[address] Scan [place] [address] Arturo Cordero MD [facility] DR [place] [address] 01/30/2025 4:15 PM EDT Office Visit [place] [address] Arturo Cordero MD [facility] [place] [address] Scheduled Procedures Name Priority Associated Diagnoses Date/Ti me EGD, UPPER GI ENDOSCOPY (WRV U 2.09) Irritable bowel syndrome with constipation COLONOSCOPY, DIAGNOSTIC (WRV U 3.26) Irritable bowel syndrome with constipation documented as of this encounter Visit Diagnoses Diagnosis Mixed hyperlipidemia documented in this encounter Care Teams Linux Systems Engineer Relationship Specialty Start Date End Date Luis E Narayan MD [facility] [address] [place] [address] PCP - General Family Medicine 03/26/19 01/19/22 documented as of this encounter
--- OUTSIDE RECORDS SUMMARY | 2024-06-07 13:39 | XMS_ITS | Encounter Summary ---
Author Organization [facility] Address [facility] [place] [address] Care Team Providers Care Roofing Subcontractor Name Role Phone Luis E Narayan MD Primary Care Provider [phone]- [phone] Reason for Visit * Reason Onset Date Comments Other 08/21/2020 Encounter Details Date Type Department Care Team (Late st Contact Info) Description 08/21/2020 Telephone Family Medicine at [facility] [address] [place] [address] Deana Akers Other Social History Tobacco Use [...] leave a message: y Ok to send [facility] message: n Offered Appointment: n MA/Nurse/[place] contacted via: Message: y Call: n Pager: n documented in this encounter Plan of Treatment Upcoming Encounters Date Type Department Care Team (Late st Contact Info) Description 06/28/2024 9:30 AM EST Office Visit Internal Medicine at [address] [phone] Daryn Garrett MD [facility] DR LILI [place] [address] 10/02/2024 1:00 PM EDT Office Visit Ophthalmology at [place] [phone] Juanpablo Hernandez MD [facility] [place] [address] 01/30/2025 1:30 PM EDT Laboratory Appointment Lab at [facility] Hematology Oncology [address] [place] [phone] 01/30/2025 3:[address] [place] [phone] Arturo Cordero MD [facility] DR [place] [address] 01/30/2025 4:15 PM EDT Office Visit Hematology [place] [phone] Arturo Cordero MD [facility] DR [place] [address] Scheduled Procedures Name Priority Associated Diagnoses Date/Ti me EGD, UPPER GI ENDOSCOPY (WRV U 2.09) Irritable bowel syndrome with constipation COLONOSCOPY, DIAGNOSTIC (WRV U 3.26) Irritable bowel syndrome with constipation documented as of this encounter Visit Diagnoses Not on filedocumented in this encounter Care Teams Roofing Subcontractor Relationship Specialty Start Date End Date Luis E Narayan MD [facility] DR LILI [place] [address] PCP - General Family Medicine 03/26/19 01/19/22 documented as of this encounter
--- OUTSIDE RECORDS SUMMARY | 2024-06-07 13:39 | XMS_ITS | Encounter Summary ---
Author Organization Formerly [facility] [place] [address] Care Team Providers Care Cage Supervisor Name Role Phone Luis E Narayan MD Primary Care Provider [phone] Reason for Visit * Reason Onset Date Comments Medication Problem 08/10/2020 Pharmacist as micha for call back Encounter Details Date Type Department Care Team (Late st Contact Info) Description 08/10/2020 [place] [address] Juanpablo Hernandez MD [facility] [place] [address] Medication Problem (Pharmacist asking for call back) [...] ??3:15 PM Author Type: Physician Status: Signed Bliss Press Operator: Juanpablo Hernandez MD (Physician) Encounter Diagnosis [...] AM EST Office Visit Internal Medicine at [facility] [address] [place] [address] Daryn Garrett MD [facility] DR LILI [place] [address] 10/02/2024 1:00 PM EDT Office [place] [address] Juanpablo Hernandez MD [facility] [place] [address] 01/30/2025 1:30 PM EDT Laboratory Appointment Lab at [facility] Hematology Oncology [address] [place] [phone] 01/30/2025 3:[address] Scan at [place] [address] Arturo Cordero MD [facility] [place] [address] 01/30/2025 4:15 PM EDT Office Visit Hematology [place] [phone] Arturo Cordero MD [facility] [place] [address] Scheduled Procedures Name Priority Associated Diagnoses Date/Ti me EGD, UPPER GI ENDOSCOPY (WRV U 2.09) Irritable bowel syndrome with constipation COLONOSCOPY, DIAGNOSTIC (WRV U 3.26) Irritable bowel syndrome with constipation documented as of this encounter Visit Diagnoses Not on filedocumented in this encounter Care Teams Cage Supervisor Relationship Specialty Start Date End Date Luis E Narayan MD [facility] [address] [place] [address] PCP - General Family Medicine 03/26/19 01/19/22 documented as of this encounter
--- OUTSIDE RECORDS SUMMARY | 2024-06-07 13:39 | XMS_ITS | Encounter Summary ---
Author Organization [facility] Address [facility] [place] [address] Care Team Providers Care Probation Counselor Name Role Phone Luis E Narayan MD Primary Care Provider [phone]- [phone] Reason for Visit * Reason Onset Date Comments Medication Refill 05/25/2020 Encounter Details Date Type Department Care Team (Late st Contact Info) Description 05/25/2020 Refill Family Medicine at [facility] [address] [place] [phone] Bonny Emanuel MD [address] [place] [address] Essential hypertension Social History Tobacco Use Types [...] at [facility] [address] [place] [phone] Daryn Garrett MD [facility] [address] [place] [address] 10/02/2024 1:00 PM EDT Office [place] [address] Juanpablo Hernandez MD [facility] [place] [address] 01/30/2025 1:30 PM EDT Laboratory Appointment Lab at [facility] [place] [address] [place] [phone] 01/30/2025 3:[address] [place] [address] Arturo Cordero MD [facility] DR [place] [address] 01/30/2025 4:15 PM EDT Office Visit Hematology [place] [address] Arturo Cordero MD [facility] DR [place] [address] Scheduled Procedures Name Priority Associated Diagnoses Date/Ti me EGD, UPPER GI ENDOSCOPY (WRV U 2.09) Irritable bowel syndrome with constipation COLONOSCOPY, DIAGNOSTIC (WRV U 3.26) Irritable bowel syndrome with constipation documented as of this encounter Visit Diagnoses Diagnosis Essential hypertension Unspecified essential hypertension documented in this encounter Care Teams Probation Counselor Relationship Specialty Start Date End Date Luis E Narayan MD [facility] [address] [place] [address] PCP - General Family Medicine 03/26/19 01/19/22 documented as of this encounter
--- OUTSIDE RECORDS SUMMARY | 2024-06-07 13:39 | XMS_ITS | Encounter Summary ---
Author Organization [facility] Address [facility] [place] [address] Care Team Providers Care Civil Lawyer Name Role Phone Luis E Narayan MD Primary Care Provider [phone] Reason for Referral * Consultation (Routine) - Closed Specialty Diagnoses / Procedures Referred By Gonzalez kumari Referred To Contact Hematology and Oncology Diagnoses Malignant melanoma of conjunctiva, left Molly Monique MD [facility] DR HEMATOLOGY/[place] [address] [facility] [address] [place] [address] Referral ID Status Reason Start Date Expiration Date V isits Requested Visits Authorized [id number] Closed Consult, Test & Treat 06/16/2020 06/16/2021 1 1 Encounter Details Date Type Department Care Team (Late st Contact Info) Description 06/16/2020 10:00 AM EST Office Visit Hematology [place] [address] Arturo Vincent MD [facility] DR [place] [address] Leandra Lopes, LUMBER STRAIGHTENER [facility] DR [place] [address] Malignant melanoma of conjunctiva, left (Primary Dx); [...] management - fall 2018: saw a new college recruiter and was referred to Dr. 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 Medina - 03/31/2020: saw her college recruiter Dr. Hernandez and was noted to have [...] uses inhalerswith good effect ??? Atherosclerosis of [place] coronary artery of [place] heart with angina pectoris 10/09/2007 History [...] performed by Avila Medina MD at [facility] MAIN OR ??? PRO PLACE AMNIOTIC MEMBRANE OCULAR SURFACE;SINGLE LAYER SUTURED Left 05/14/2020 PLACEMENT OF AMNIOTIC MEMBRANE ON THE OCULAR SURFACE,SINGLE LAYER,SUTURED (WRVU 2.5) performed by Juanpablo Hernandez MD at 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 Hernandez in Ophthalmology. [...] basin. This patient was evaluated with Dr. Vincent who agrees with the plan as above. [...] agree with the above plans described. Arturo Vincent MD documented in this encounter Plan of Treatment Upcoming Encounters Date Type Department Care Team (Late st Contact Info) Description 06/28/2024 9:30 AM EST Office Visit Internal Medicine at [address] [address] Daryn Garrett MD [facility] DR LILI [place] [address] 10/02/2024 1:00 PM EDT Office [place] [address] Juanpablo Hernandez MD [facility] [place] [address] 01/30/2025 1:30 PM EDT Laboratory Appointment Lab at [facility] Hematology Oncology [address] [place] [phone] 01/30/2025 3:[address] [place] [address] Arturo Vincent MD [facility] [place] [address] 01/30/2025 4:15 PM EDT Office Visit Hematology [place] [address] Arturo Vincent MD [facility] DR [place] [address] Scheduled Orders Name Type Priority Associated Diagnoses Orde r Schedule CBC (with Diff) Lab Routine Malignant melanoma of conjunctiva, left Expected: 09/16/2020 (Approximate), Expires: 06/16/2021 Comprehensive metabolic panel (non-fasting) Lab Routine Malignant melanoma of conjunctiva, left Expected: 09/16/2020 (Approximate), Expires: 06/16/2021 Lactate Dehydrogenase Lab Routine Malignant melanoma of conjunctiva, left Expected: 09/14/2020, Expires: 03/16/2021 Scheduled Procedures Name Priority Associated Diagnoses Date/Ti [...] -Left Neck PATIENT INFO: ID #: ? [id number] ?: ??[birth year] (59 yrs)(F) Name: ? PATIENCE MANJARREZ ? Visit Date: 09/15/2020 09:42 am PERFORMED BY: Performed By: ? Kaela Bruno RDMS Attending: ?Sofy COLVIN, Nakia Andrade Referred By: ?HORTENSIAMAYE [facility] Location: ? [facility] SERVICE(S) PROVIDED: USTN - Soft Tissue Neck or Head - [id number] ? [id number] INDICATIONS: History of left eye conjunctival melanoma [...] Report -Left Neck PATIENT INFO: ID #: [id number] : 58 (59 yrs)(F) Name: PATIENCE MANJARREZ Visit Date: 09/15/2020 09:42 am PERFORMED BY: Performed By: Kaela Bruno RDMS Attending: Nakia Goetz MD Referred By: ARTURO VINCENT Location: [facility] SERVICE(S) PROVIDED: USTN - Soft Tissue Neck or Head - [id number] INDICATIONS: History of left eye conjunctival melanoma [...] below. Electronically signed by: Nakia Goetz MD, [facility] ([phone]), at 09/15/2020 9:54 AM Nakia Goetz, Staff Physician Electronically Signed Final Report 09/15/2020 10:01 am Arturo Vincent MD IMG US GEN ORDERABLE S documented in this encounter Visit Diagnoses Diagnosis Malignant melanoma of conjunctiva, left- Primary Anxiety Anxiety state, unspecified History of renal cell cancer Malignant melanoma of conjunctiva, left documented in this encounter Care Teams Civil Lawyer Relationship Specialty Start Date End Date Luis E Narayan MD [facility] DR LILI [place] [address] PCP - General Family Medicine 03/26/19 01/19/22 documented as of this encounter
--- OUTSIDE RECORDS SUMMARY | 2024-06-07 13:39 | XMS_ITS | Encounter Summary ---
Author Organization [facility] Address [facility] [place] [address] Care Team Providers Care Loader Helper Sorting Yard Name Role Phone Luis E Narayan MD Primary Care Provider [phone]- [phone] Reason for Visit * Reason Comments Post Op Encounter Details Date Type Department Care Team (Late st Contact Info) Description 06/16/2020 8:30 AM EST Office Visit [place] [address] Juanpablo Hernandez MD [facility] DR [place] [address] Malignant melanoma of conjunctiva, left Social History [...] AM EST Office Visit Internal Medicine at [facility] [address] [place] [address] Daryn Garrett MD [facility] DR LILI WALKER - [place] [address] 10/02/2024 1:00 PM EDT Office Visit [place] [phone] Juanpablo Hernandez MD [facility] DR [place] [address] 01/30/2025 1:30 PM EDT Laboratory Appointment Lab at [facility] Hematology Oncology [address] [place] [phone] 01/30/2025 3:[address] [place] [phone] Arturo Cordero MD [facility] DR HEMATOLOGY [place] [address] 01/30/2025 4:15 PM EDT Office Visit Hematology [place] [phone] Arturo Cordero MD [facility] DR HEMATOLOGY [place] [address] Scheduled Procedures Name Priority Associated Diagnoses Date/Ti me EGD, UPPER GI ENDOSCOPY (WRV U 2.09) Irritable bowel syndrome with constipation COLONOSCOPY, DIAGNOSTIC (WRV U 3.26) Irritable bowel syndrome with constipation documented as of this encounter Visit Diagnoses Diagnosis Malignant melanoma of conjunctiva, left documented in this encounter Care Teams Loader Helper Sorting Yard Relationship Specialty Start Date End Date Luis E Narayan MD [facility] DR LIL[address] WALKER-[place] [address] PCP - General Family Medicine 03/26/19 01/19/22 documented as of this encounter
--- OUTSIDE RECORDS SUMMARY | 2024-06-07 13:39 | XMS_ITS | Encounter Summary ---
Author Organization [facility] Address [facility] [place] [address] Care Team Providers Care City Superintendent Name Role Phone Luis E Narayan MD Primary Care Provider Reason for Visit * Reason Comments Follow-up Encounter Details Date Type Department Care Team (Late st Contact Info) Description 07/31/2020 3:15 PM EST Office [place] [address] Juanpablo Hernandez MD [facility] [place] [address] Malignant melanoma of conjunctiva, left Social History [...] Office Visit Internal Medicine at [facility] [address] [place] [address] Daryn Garrett MD [facility] DR LILI WALKER - [place] [address] 10/02/2024 1:00 PM EDT Office [place] [phone] Juanpablo Hernandez MD [facility] [place] [address] 01/30/2025 1:30 PM EDT Laboratory Appointment Lab at [facility] [place]ology Oncology [address] [place] [phone] 01/30/2025 3:[address] [place] [phone] Arturo Cordero MD [facility] DR HEMATOLOGY [place] [address] 01/30/2025 4:15 PM EDT Office Visit Hematology [place] [phone] Arturo Cordero MD [facility] DR HEMATOLOGY [place] [address] Scheduled Procedures Name Priority Associated Diagnoses Date/Ti me EGD, UPPER GI ENDOSCOPY (WRV U 2.09) Irritable bowel syndrome with constipation COLONOSCOPY, DIAGNOSTIC (WRV U 3.26) Irritable bowel syndrome with constipation documented as of this encounter Visit Diagnoses Diagnosis Malignant melanoma of conjunctiva, left documented in this encounter Care Teams City Superintendent Relationship Specialty Start Date End Date Luis E Narayan MD [facility] DR LILI WALKER[place] [address] PCP - General Family Medicine 03/26/19 01/19/22 documented as of this encounter
--- OUTSIDE RECORDS SUMMARY | 2024-06-07 13:39 | XMS_ITS | Encounter Summary ---
[place] [address] Care Team Providers Care Hides Inspector Name Role Phone Luis E Narayan MD Primary Care Provider Encounter Details Date Type Department Care Team (Latest Contact Info) Description 06/16/2020 10:30 AM EST Clinical Support [place] [address] Malika Ye Cigarette nicotine dependence without complication [...] Nicotine inhaler) Expected Quit Date: 09/28/19 Given [facility] Tobacco Resource Packet?: Yes Eligible for Lung Cancer Screening?: No Follow up with: [facility] Smoking Cessation Program ..Thoracic Surgery - Tobacco Cessation Consultation [facility] [place] ([place], [place] [address] FAX: HPI: Alize Gramajo is a 59 y.o. female who is being seen today for tobacco cessation. Type of tobacco used: () Smokeless tobacco () e-cigarette (X)Cigarettes Brand currently smoking: Ashley Gold Current amount: 1 ppd Cost per [...] smoking cessation counseling. She is currently smoking Mariposa Golds and does kind of wish to [...] in places where it is forbidden? (ex. gnosticist) No Yes 0 3. Which cigarette would [...] inhaler be sent to [facility] in [place]. 2. Discussed behavioral change including distraction, exercise, positive thinking, deep breathing, using anxiety medications if needed, asking for help 3. 30 minutes of exercise daily 4. Call with any questions or concerns 5. Follow up in one week Malika Ye 06/16/20 Thoracic Surgery - Tobacco Cessation [facility] documented in this encounter Plan of Treatment Upcoming Encounters Date Type Department Care Team (Late st Contact Info) Description 06/28/2024 9:30 AM EST Office Visit Internal Medicine at [facility] [address] [place] [address] Daryn Garrett MD [facility] DR LIL[address] [place] [address] 10/02/2024 1:00 PM EDT Office Visit Ophthalmology at [place] [phone] Juanpablo Hernandez MD [facility] [place] [address] 01/30/2025 1:30 PM EDT Laboratory Appointment Lab at [facility] Hematology Oncology [address] [place] [phone] 01/30/2025 3:[address] Scan at [address] Arturo Cordero MD [facility] [place] [address] 01/30/2025 4:15 PM EDT Office Visit [place]ology [place] [address] Arturo Cordero MD [facility] [place] [address] Scheduled Procedures Name Priority Associated Diagnoses Date/Ti me EGD, UPPER GI ENDOSCOPY (WRV U 2.09) Irritable bowel syndrome with constipation COLONOSCOPY, DIAGNOSTIC (WRV U 3.26) Irritable bowel syndrome with constipation documented as of this encounter Visit Diagnoses Diagnosis Cigarette nicotine dependence without complication Tobacco use disorder documented in this encounter Care Teams Hides Inspector Relationship Specialty Start Date End Date Luis E Narayan MD [facility] [address] [place] [address] PCP - General Family Medicine 03/26/19 01/19/22 documented as of this encounter
--- OUTSIDE RECORDS SUMMARY | 2024-06-07 13:39 | XMS_ITS | Encounter Summary ---
Author Organization [facility] [place] [address] Care Team Providers Care Press Manager Name Role Phone Luis E Narayan MD Primary Care Provider +[phone]- [phone] Encounter Details Date Type Department Care Team (Late st Contact Info) Description 07/14/2020 Telephone Family Medicine at [facility] [address] [place] [address] Toyin Rodriguez Social History Tobacco Use Types [...] EST Law [place] form(s) received from placement secretary bin and placed in provider folder. * Telephone Encounter - Toyin Arboleda LNA - 07/14/2020 4:22 PM EST Law office [place] John form(s) received via [employer] fax weather observer. Two patient identifiers confirmed on form(s) Form(s) printed and placed in team placement secretary mail bin. documented in this encounter Plan of Treatment Upcoming Encounters Date Type Department Care Team (Late st Contact Info) Description 06/28/2024 9:30 AM EST Office Visit Internal Medicine at [facility] [address] [place] [address] Daryn Garrett MD [facility] DR LILI [place] [address] 10/02/2024 1:00 PM EDT Office [place] [phone] Juanpablo Hernandez MD [facility] [place] [address] 01/30/2025 1:30 PM EDT Laboratory Appointment Lab at [facility] Hematology Oncology [address] [place] [phone] 01/30/2025 3:[address] [place] [phone] Arturo Cordero MD [facility] [place] [address] 01/30/2025 4:15 PM EDT Office Visit [place] [phone] Arturo Cordero MD [facility] DR [place] [address] Scheduled Procedures Name Priority Associated Diagnoses Date/Ti me EGD, UPPER GI ENDOSCOPY (WRV U 2.09) Irritable bowel syndrome with constipation COLONOSCOPY, DIAGNOSTIC (WRV U 3.26) Irritable bowel syndrome with constipation documented as of this encounter Visit Diagnoses Not on filedocumented in this encounter Care Teams Press Manager Relationship Specialty Start Date End Date Luis E Narayan MD [facility] [place] [address] PCP - General Family Medicine 03/26/19 01/19/22 documented as of this encounter
--- OUTSIDE RECORDS SUMMARY | 2024-06-07 13:39 | XMS_ITS | Encounter Summary ---
Author Organization [facility] Address [facility] [place] [address] Care Team Providers Care Roving Or Yarn Color Checker Name Role Phone Luis E Narayan MD Primary Care Provider Encounter Details Date Type Department Care Team (Late Contact Info) Description 08/07/2020 Telephone [place] [phone] Malika Ye Social History Tobacco Use Types [...] AM EST Office Visit Internal Medicine at [facility] [address] [place] [address] Daryn Garrett MD [facility] [address]IL[address] [place] [address] 10/02/2024 1:00 PM EDT Office [place] [phone] Juanpablo Hernandez MD [facility] [place] [address] 01/30/2025 1:30 PM EDT Laboratory Appointment Lab at [facility] Hematology Oncology [address] [place] [phone] 01/30/2025 3:[address] [place] [phone] Arturo Cordero MD [facility] [place] [address] 01/30/2025 4:15 PM EDT Office Visit Hematology [place] [phone] Arturo Cordero MD [facility] [place] [address] Scheduled Procedures Name Priority Associated Diagnoses Date/Ti me EGD, UPPER GI ENDOSCOPY (WRV U 2.09) Irritable bowel syndrome with constipation COLONOSCOPY, DIAGNOSTIC (WRV U 3.26) Irritable bowel syndrome with constipation documented as of this encounter Visit Diagnoses Not on filedocumented in this encounter Care Teams Roving Or Yarn Color Checker Relationship Specialty Start Date End Date Luis E Narayan MD [facility] [address] [place] [address] PCP - General Family Medicine 03/26/19 01/19/22 documented as of this encounter
--- OUTSIDE RECORDS SUMMARY | 2024-06-07 13:39 | XMS_ITS | Encounter Summary ---
Author Organization [facility] [place] [address] Care Team Providers Care Event Technician Name Role Phone Luis E Narayan MD Primary Care Provider +1- [phone] Encounter Details Date Type Department Care Team (Late st Contact Info) Description 08/17/2020 Telephone Cardiology at [address] [phone] Anthony Barbosa MD [facility] [place] [address] Social History Tobacco Use Types Packs/Day Years [...] PM Referring Provider: Cindy CARLIN Patient Location: [facility] Presenting Symptoms per OSH: 59F with h/o [...] Lower concern for an active plaque rupture MS. - Recommended to trend trops and assess [...] Medicine at [facility] [place] [phone] Daryn Garrett MD [facility] DR LILI [place] [address] 10/02/2024 1:00 PM EDT Office [place] [phone] Juanpablo Hernandez MD [facility] [place] [address] 01/30/2025 1:30 PM EDT Laboratory Appointment Lab at [facility] Hematology Oncology [address] [place] [phone] 01/30/2025 3:[address] [place] [phone] Arturo Cordero MD [facility] [place]AT[place] [address] 01/30/2025 4:15 PM EDT Office Visit Hematology [place] [phone] Arturo Cordero MD [facility] DR [place]AT[place] [address] Scheduled Procedures Name Priority Associated Diagnoses Date/Ti me EGD, UPPER GI ENDOSCOPY (WRV U 2.09) Irritable bowel syndrome with constipation COLONOSCOPY, DIAGNOSTIC (WRV U 3.26) Irritable bowel syndrome with constipation documented as of this encounter Visit Diagnoses Not on filedocumented in this encounter Care Teams Event Technician Relationship Specialty Start Date End Date Luis E Narayan MD [facility] [place] [address] PCP - General Family Medicine 03/26/19 01/19/22 documented as of this encounter
--- OUTSIDE RECORDS SUMMARY | 2024-06-07 13:39 | XMS_ITS | Encounter Summary ---
Author Organization [facility] [place] [address] Care Team Providers Care Cognos Lead Name Role Phone Luis E Narayan MD Primary Care Provider +1- [phone] Reason for Referral * Consultation (Urgent) - Closed Specialty Diagnoses / Procedures Referred By Gonzalez kumari Referred To Contact Hematology and Oncology Diagnoses Conjunctival tumor Juanpablo Hernandez MD [facility] [place] [address] [facility] Hem Onc [address] [place] [address] Referral ID Status Reason Start Date Expiration Date V isits Requested Visits Authorized [id number] Closed Consult, Test & Treat 05/19/2020 05/19/2021 1 1 Reason for Visit * Reason Comments Post Op Encounter Details Date Type Department Care Team (Late st Contact Info) Description 05/19/2020 10:15 AM EST Office [place] [phone] Juanpablo Hernandez MD [facility] [place] [address] Conjunctival tumor; Malignant melanoma of conjunctiva, left [...] to epithelium. Spoke with Dr. Gordon at [facility] in a general way about this case. [...] AM EST Office Visit Internal Medicine at [facility] [address] [place] [address] Daryn Garrett MD [facility] DR LILI [place] [address] 10/02/2024 1:00 PM EDT Office [place] [phone] Juanpablo Hernandez MD [facility] [address] 01/30/2025 1:30 PM EDT Laboratory Appointment Lab at [facility] [place]ematology Oncology [address] [place] [phone] 01/30/2025 3:[address] [place] [phone] Arturo Cordero MD [facility] DR [place]EMATOLOG[place] [address] 01/30/2025 4:15 PM EDT Office Visit Hematology [place] [phone] Arturo Cordero MD [facility] DR [place]EMATOLOG[place] [address] Scheduled Procedures Name Priority Associated Diagnoses Date/Ti [...] left documented in this encounter Care Teams Cognos Lead Relationship Specialty Start Date End Date Luis E Narayan MD [facility] DR LILI [place] [address] PCP - General Family Medicine 03/26/19 01/19/22 documented as of this encounter
--- OUTSIDE RECORDS SUMMARY | 2024-06-07 13:39 | XMS_ITS | Encounter Summary ---
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 Social [...] 08/05/2019 06/14/2021 fluticasone propionate (FLONASE) 50 mcg/actuation [place], Suspension 1 spray by Each Nare route [...] EST Office Visit Internal Medicine at [address] [phone] Daryn Garrett MD [facility] DR LILI WALKER [place] [address] 10/02/2024 1:00 PM EDT Office [place] [phone] Juanpablo Hernandez MD [facility] [place] [address] 01/30/2025 1:30 PM EDT Laboratory Appointment Lab at [facility] Hematology Oncology [address] [place] [phone] 01/30/2025 3:[address] [place] [phone] Arturo Cordero MD [facility] HEMATOLOGY [place] [address] 01/30/2025 4:15 PM EDT Office Visit H[place]ology [place] [address] Arturo Cordero MD [facility] DR HEMATOLOGY [place] [address] Scheduled Procedures Name Priority Associated Diagnoses Date/Ti [...] 2:00 PM EST) Neutrophil % 57.4 % [facility] Neutrophil Absolute 4.65 1.70 - 6.10 x10(3)/[facility] Lymph % 32.2 % [facility] Lymphocytes Abs 2.6 0.9 - 3.2 x10(3)/[facility] Monocyte % 7.6 % [facility] Monocyte Abs 0.6 0.3 - 0.9 x10(3)/[facility] Eos % 1.6 % [facility] Eosinophils Abs 0.1 0.0 - 0.4 x10(3)/[facility] Basophil % 0.7 % [facility] Baso Absolute 0.1 0.0 - 0.1 x10(3)/[facility] Immature Gran % 0.50 % [facility] Comment: Immature granulocytes(IG's)percentage and absolute count will include metamyelocytes, myelocytes, and promyelocytes. Blood smears from CBCs yielding IG's will be scanned manually for concordance. If this scan disagrees with the automated IG or if promyelocytes are noted, a manual differential will be performed. Immature Gran Absolute 0.04 0.00 - 0.04 x10(3)/[facility] Blood specimen (specimen) 06/12/2020 2:00 PM EST 06/12/2020 2:04 PM EST Narrative Resulting Agency Comment Spec In Lab Sri Frederick MD HEMATOLOGY ORDERABLE S Performing Organization Address City/State/[facility] Co de Phone Number [facility] [place] [address] * Hemogram (06/12/2020 2:00 PM EST) White Blood Cell 8.1 4.0 - 9.5 x10(3)/[facility] Red Blood Cell 4.67 4.00 - 5.21 x10(6)/[facility] Hemoglobin 13.4 11.7 - 15.5 gm/dL [facility] Hematocrit 40.7 35.7 - 45.8 % [facility] Mean Cell Volume 87.2 82.6 - 94.4 fL [facility] Mean Cell Hemoglobin 28.7 27.1 - 32.0 pg [facility] Mean Cell Hemoglobin Concentration 32.9 31.7 - 35.0 gm/dL [facility] Platelet 350 145 - 357 x10(3)/[facility] RDW Standard Deviation 42.6 37.0 - 46.0 fL [facility] RDW coefficient of variation 13.4 11.5 - 14.1 % [facility] Mean Platelet Volume 9.2 7.6 - 12.9 [facility] NRBC% auto 0.0 % [facility] NRBC Absolute 0.000 0.000 - 0.000 x10(3)/mcL [facility] Blood specimen (specimen) 06/12/2020 2:00 PM EST 06/12/2020 2:04 PM EST Narrative Resulting Agency Comment Spec In Lab Sri Frederick MD HEMATOLOGY ORDERABLE S [facility] [place] [address] * Comprehensive metabolic panel (non-fasting) (06/12/2020 2:00 PM EST) Glucose 166 65 - 199 mg/dL [facility] Comment:Diabetes: >=200 mg/d L plus symptoms Blood Urea Nitrogen 17 8 - 18 mg/dL [facility] Creatinine 0.92 0.70 - 1.20 mg/dL [facility] Sodium 140 135 - 145 mmol/L [facility] Potassium 4.3 3.5 - 5.0 mmol/L [facility] Comment: Please note: ??Patients with WBC >100,000 may have falsely elevated Potassium levels. ??For accurate Potassium quantification in these patients send serum separator tube (gold top) for subsequent determinations. ??Contact the Clinical Chemistry Laboratory if there are any questions. Chloride 104 98 - 107 mmol/L [facility] Carbon Dioxide 28 22 - 31 mmol/L [facility] Anion Gap 8 5 - 15 mmol/L [facility] Calcium 9.4 8.5 - 10.5 mg/dL [facility] Protein, Total 6.8 6.1 - 8.0 gm/dL [facility] Albumin 4.4 3.2 - 5.2 gm/dL [facility] Aspartate Aminotransferase 17 0 - 30 unit/L [facility] Alanine Aminotransferase 22 0 - 30 unit/L [facility] Alkaline Phosphatase 102 35 - 105 unit/L [facility] Bilirubin, Total 0.4 0.2 - 1.3 mg/dL [facility] Est Glomerular Filtration Rate 68 >=60 mL/min/1. 73 m?? [facility] [...] Cordero MD CHEMISTRY ORDERABLES Performing Organization Address [facility] Co de Phone Number [facility] [place] [address] * Lactate Dehydrogenase (06/12/2020 2:00 PM EST) Lactate Dehydrogenase 198 110 - 220 unit/L [facility] Blood specimen (specimen) 06/12/2020 2:00 PM EST 06/12/2020 2:04 PM EST Narrative Resulting Agency Comment Spec In Lab Arturo Cordero MD CHEMISTRY ORDERABLES Performing Organization Address [facility] Co de Phone Number [facility] [place] [address] * TSH (06/12/2020 2:00 PM EST) Thyroid Stimulating Hormone 2.53 0.27 - 4.20 mcIU/mL [facility] Blood specimen (specimen) 06/12/2020 2:00 PM EST 06/12/2020 2:04 PM EST Narrative Resulting Agency Comment Spec In Lab Arturo Cordero MD CHEMISTRY ORDERABLES Performing Organization Address City/[facility]/ZIP Co de Phone Number [facility] [place] [address] * T4, free (06/12/2020 2:00 PM EST) Free T4 1.01 0.93 - 1.70 ng/dL [facility] Blood specimen (specimen) 06/12/2020 2:00 PM EST 06/12/2020 2:04 PM EST Narrative Resulting Agency Comment Spec In Lab Arturo Cordero MD CHEMISTRY ORDERABLES Performing Organization Address [facility] Co de Phone Number [facility] [place] [address] documented in this encounter Visit Diagnoses Diagnosis Ocular melanoma, left documented in this encounter Care Teams Video Clerk Relationship Specialty Start Date End Date Luis E Narayan MD [facility] DR LILI WALKER-[facility] [place] [phone] PCP - General Family Medicine 03/26/19 01/19/22 documented as of this encounter
--- OUTSIDE RECORDS SUMMARY | 2024-06-07 13:39 | XMS_ITS | Encounter Summary ---
[place] [address] Care Team Providers Care Rim Fire Priming Operator Name Role Phone Luis E Narayan MD Primary Care Provider Reason for Visit * Reason Onset Date Comments Post Op Post Op 05/15/2020 Encounter Details Date Type Department Care Team (Late st Contact Info) Description 05/15/2020 1:30 PM EST Office [place] [address] Juanpablo Hernandez MD [facility] [place] [address] Conjunctival tumor Social History Tobacco Use Types [...] Instruction following eye surgery Section of Ophthalmology [facility] 1) AVOID EYE INJURIES: Following eye [...] DECREASING VISION: There is always a doctor hospice care consultant at the eye clinic if you develop [...] EST Office Visit Internal Medicine at [facility] [address] [place] [address] Daryn Garrett MD [facility] DR LILI [place] [address] 10/02/2024 1:00 PM EDT Office [place] [phone] Juanpablo Hernandez MD [facility] [place] [address] 01/30/2025 1:30 PM EDT Laboratory Appointment Lab at [facility] Hematology Oncology [address] [place] [phone] 01/30/2025 3:[address] [place] [phone] Arturo Cordero MD [facility] DR HEMATOLOGY [place] [address] 01/30/2025 4:15 PM EDT Office Visit Hematology [place] [phone] Arturo Cordero MD [facility] DR HEMATOLOGY [place] [address] Scheduled Procedures Name Priority Associated Diagnoses Date/Ti me EGD, UPPER GI ENDOSCOPY (WRV U 2.09) Irritable bowel syndrome with constipation COLONOSCOPY, DIAGNOSTIC (WRV U 3.26) Irritable bowel syndrome with constipation documented as of this encounter Visit Diagnoses Diagnosis Conjunctival tumor Neoplasms of unspecified nature, other specified sites documented in this encounter Care Teams Rim Fire Priming Operator Relationship Specialty Start Date End Date Luis E Narayan MD [facility] [place] [address] PCP - General Family Medicine 03/26/19 01/19/22 documented as of this encounter
--- OUTSIDE RECORDS SUMMARY | 2024-06-07 13:39 | XMS_ITS | Encounter Summary ---
Author Organization [facility] Address [place] [address] Care Team Providers Care Technical Applications Scientist Name Role Phone Luis E Narayan MD Primary Care Provider +1- [phone] Reason for Visit * Reason Onset Date Comments Medication Refill 07/26/2020 Encounter Details Date Type Department Care Team (Late Contact Info) Description 07/26/2020 Refill Family Medicine at [facility] [address] [place] [phone] Luis E Narayan MD [facility] [place] [address] Type 2 diabetes mellitus without [...] AM EST Office Visit Internal Medicine at [facility] [address] [phone] Daryn Garrett MD [facility] DR LILI [place] [address] 10/02/2024 1:00 PM EDT Office Visit Ophthalmology at [place] [phone] Juanpablo Hernandez MD [facility] DR OPHTHAL[place] [address] 01/30/2025 1:30 PM EDT Laboratory Appointment Lab at [facility] [place]emat[facility] Oncology [address] [place], [place] [phone] 01/30/2025 3:[address] Scan at [place] [phone] Arturo Cordero MD [facility] DR HEMATOLOGY AND [place] [address] 01/30/2025 4:15 PM EDT Office Visit Hematology [place] [phone] Arturo Cordero MD [facility] DR HEMATOLOGY AND [place] [address] Scheduled Procedures Name Priority Associated Diagnoses Date/Ti me EGD, UPPER GI ENDOSCOPY (WRV U 2.09) Irritable bowel syndrome with constipation COLONOSCOPY, DIAGNOSTIC (WRV U 3.26) Irritable bowel syndrome with constipation documented as of this encounter Visit Diagnoses Diagnosis Type 2 diabetes mellitus without long-term current use of insulin documented in this encounter Care Teams Technical Applications Scientist Relationship Specialty Start Date End Date Luis E Narayan MD [facility] [address]-FAMILY [place] [address] PCP - General Family Medicine 03/26/19 01/19/22 documented as of this encounter
--- OUTSIDE RECORDS SUMMARY | 2024-06-07 13:39 | XMS_ITS | Encounter Summary ---
Author Organization [facility] Address [facility] [place] [address] Care Team Providers Care Psych Specialist Name Role Phone Luis E Narayan MD Primary Care Provider Encounter Details Date Type Department Care Team (Late st Contact Info) Description 06/18/2020 Orders Only Family Medicine at [facility] [address] [place] [phone] Luis E Narayan MD [facility] DR [place] [address] Social History Tobacco Use Types Packs/Day Years [...] [facility] [address] [place] [address] Daryn Garrett MD [facility] DR LILI [place] [address] 10/02/2024 1:00 PM EDT Office Visit Ophthalmology at [place] [phone] Juanpablo Hernandez MD [facility] [place] [address] 01/30/2025 1:30 PM EDT Laboratory Appointment Lab at [facility] Hematology Oncology [address] [place] [phone] 01/30/2025 3:[address] Scan at [place] [phone] Arturo Cordero MD [facility] DR HEMATOLOGY [place] [address] 01/30/2025 4:15 PM EDT Office Visit Hematology and Oncology at [place] [phone] Arturo Cordero MD [facility] DR HEMATOLOGY [place] [address] Scheduled Procedures Name Priority Associated Diagnoses Date/Ti me EGD, UPPER GI ENDOSCOPY (WRV U 2.09) Irritable bowel syndrome with constipation COLONOSCOPY, DIAGNOSTIC (WRV U 3.26) Irritable bowel syndrome with constipation documented as of this encounter Visit Diagnoses Not on filedocumented in this encounter Care Teams Psych Specialist Relationship Specialty Start Date End Date Luis E Narayan MD [facility] [address] [place] [address] PCP - General Family Medicine 03/26/19 01/19/22 documented as of this encounter
--- OUTSIDE RECORDS SUMMARY | 2024-06-07 13:39 | XMS_ITS | Encounter Summary ---
Author Organization [facility] [place] [address] Care Team Providers Care Flatware Maker Name Role Phone Luis E Narayan MD Primary Care Provider Reason for Referral * Diagnostic Test (Routine) - Closed Specialty Diagnoses / Procedures Referred By Contchrissy kumari Referred To Contact Radiology Diagnoses Ocular melanoma, left Malignant melanoma, unspecified site Procedures CT Neck Soft Tissue w Contrast (Generic) Arturo Cordreo MD [facility] DR H[place]AT[place] [address] [facility] [place] [address] Referral ID Status Reason Start Date Expiration Date V isits Requested Visits Authorized [id number] Closed Specialty Service Requested 06/08/2020 12/06/2021 1 1 Encounter Details Date Type Department Care Team (Late st Contact Info) Description 06/08/2020 Orders Only [place] [phone] Arturo Cordero MD [facility] DR [place] [address] Ocular melanoma, left; Malignant melanoma, [...] Medicine at [facility] [address] [place] [phone] Daryn Garrett MD [facility] DR LILI [place] [address] 10/02/2024 1:00 PM EDT Office [place] [phone] Juanpablo Hernandez MD [facility] [address] 01/30/2025 1:30 PM EDT Laboratory Appointment Lab at [facility] Hematology Oncology [address] [place] [phone] 01/30/2025 3:[address] [place] [phone] Arturo Cordero MD [facility] H[place]ATOLOG[place] [address] 01/30/2025 4:15 PM EDT Office Visit Hematology [place] [phone] Arturo Cordero MD [facility] HEMATOLOGY [place] [address] Scheduled Procedures Name Priority Associated Diagnoses Date/Ti [...] site documented in this encounter Care Teams Flatware Maker Relationship Specialty Start Date End Date Luis E Narayan MD [facility] [place] [address] PCP - General Family Medicine 03/26/19 01/19/22 documented as of this encounter
--- OUTSIDE RECORDS SUMMARY | 2024-06-07 13:39 | XMS_ITS | Encounter Summary ---
Author Organization [facility] [place] [address] Care Team Providers Care Entry Level Drafter Name Role Phone Luis E Narayan MD Primary Care Provider +1- [phone] Reason for Visit * Reason Onset Date Comments Medication Refill 06/01/2020 Pred Forte to [facility] Encounter Details Date Type Department Care Team (Late st Contact Info) Description 06/01/2020 [place] [address] Juanpablo Hernandez MD [facility] [place] [address] Conjunctival tumor Social History Tobacco Use Types [...] Medicine at [facility] [address] [place] [address] Daryn Garrett MD [facility] DR LILI WALKER - [place] [address] 10/02/2024 1:00 PM EDT Office Visit Ophthalmology at [place] [address] Juanpablo Hernandez MD [facility] [place] [address] 01/30/2025 1:30 PM EDT Laboratory Appointment Lab at [facility] Hematology Oncology [address] [place] [address] 01/30/2025 3:[address] Scan at [place] [address] Arturo Cordero MD [facility] DR HEMATOLOGY [place] [address] 01/30/2025 4:15 PM EDT Office Visit Hematology [place] [address] Arturo Cordero MD [facility] HEMATOLOGY [place] [address] Scheduled Procedures Name Priority Associated Diagnoses Date/Ti me EGD, UPPER GI ENDOSCOPY (WRV U 2.09) Irritable bowel syndrome with constipation COLONOSCOPY, DIAGNOSTIC (WRV U 3.26) Irritable bowel syndrome with constipation documented as of this encounter Visit Diagnoses Diagnosis Conjunctival tumor Neoplasms of unspecified nature, other specified sites documented in this encounter Care Teams Entry Level Drafter Relationship Specialty Start Date End Date Luis E Narayan MD [facility] [address] [place] [address] PCP - General Family Medicine 03/26/19 01/19/22 documented as of this encounter
--- OUTSIDE RECORDS SUMMARY | 2024-06-07 13:39 | XMS_ITS | Encounter Summary ---
Author Organization Formerly [facility] Address [facility] [place] [address] Care Team Providers Care Lead Scientist Name Role Phone Luis E Narayan MD Primary Care Provider [phone]- [phone] Reason for Visit * Reason Onset Date Comments Medication Refill 06/25/2020 Encounter Details Date Type Department Care Team (Late st Contact Info) Description 06/25/2020 Refill Family Medicine at [facility] [address] [place] [phone] Bonny Emanuel MD [address] [place] [address] Social History Tobacco Use Types Packs/Day Years [...] Medicine at [facility] [address] [place] [phone] Daryn Garrett MD [facility] [address] [place] [address] 10/02/2024 1:00 PM EDT Office Visit Ophthalmology at [place] [address] Juanpablo Hernandez MD [facility] [place] [address] 01/30/2025 1:30 PM EDT Laboratory Appointment Lab at [facility] [place] On[place] [address] [place] [address] 01/30/2025 3:[address] Scan at [place] [address] Arturo Cordero MD [facility] DR HEM[place] [address] 01/30/2025 4:15 PM EDT Office Visit [place] [address] Arturo Cordero MD [facility] [place] [address] Scheduled Procedures Name Priority Associated Diagnoses Date/Ti me EGD, UPPER GI ENDOSCOPY (WRV U 2.09) Irritable bowel syndrome with constipation COLONOSCOPY, DIAGNOSTIC (WRV U 3.26) Irritable bowel syndrome with constipation documented as of this encounter Visit Diagnoses Not on filedocumented in this encounter Care Teams Lead Scientist Relationship Specialty Start Date End Date Luis E Narayan MD [facility] [address] [place] [address] PCP - General Family Medicine 03/26/19 01/19/22 documented as of this encounter
--- OUTSIDE RECORDS SUMMARY | 2024-06-07 13:39 | XMS_ITS | Encounter Summary ---
Author Organization [facility] Address [facility] [address] Care Team Providers Care Thermoplastic Technician Name Role Phone Lius E Narayan MD Primary Care Provider [phone]- [phone] Encounter Details Date Type Department Care Team (Late st Contact Info) Description 06/17/2020 Telephone [place] [address] Juanpablo Hernandez MD [facility] [place] [address] Social History Tobacco Use Types Packs/Day Years [...] do - please call pt back at [phone] to discuss the next options * Telephone Encounter - Lida Bains - 06/19/2020 10:57 AM EST Phone number given. * Telephone Encounter - Christine Madera - 06/17/2020 10:12 AM EST Left VM letting Alize know that per her conversation with Dr. Hernandez yesterday, Dr. Laura Gordon [facility] [place] has agreed to a remote consult. When Alize calls back please let her know to call [phone] to register for the remote consult documented in this encounter Plan of Treatment Upcoming Encounters Date Type Department Care Team (Late st Contact Info) Description 06/28/2024 9:30 AM EST Office Visit Internal Medicine at [address] [phone] Daryn Garrett MD [facility] DR [place] [address] 10/02/2024 1:00 PM EDT Office [place] [phone] Juanpablo Hernandez MD [facility] [place] [address] 01/30/2025 1:30 PM EDT Laboratory Appointment Lab [place] [facility] [place] [address] [place] [phone] 01/30/2025 3:[address] [place] [address] Arturo Cordero MD [facility] [place] [address] 01/30/2025 4:15 PM EDT Office Visit Hematology [place] [address] Arturo Cordero MD [facility] [place] [address] Scheduled Procedures Name Priority Associated Diagnoses Date/Ti me EGD, UPPER GI ENDOSCOPY (WRV U 2.09) Irritable bowel syndrome with constipation COLONOSCOPY, DIAGNOSTIC (WRV U 3.26) Irritable bowel syndrome with constipation documented as of this encounter Visit Diagnoses Not on filedocumented in this encounter Care Teams Thermoplastic Technician Relationship Specialty Start Date End Date Luis E Narayan MD [facility] DR [address] [place] [address] PCP - General Family Medicine 03/26/19 01/19/22 documented as of this encounter
--- OUTSIDE RECORDS SUMMARY | 2024-06-07 13:39 | XMS_ITS | Encounter Summary ---
Author Organization [facility] [place] [address] Care Team Providers Care Php Mysql Developer Name Role Phone Luis E Narayan MD Primary Care Provider [phone] Reason for Referral * Diagnostic Test (Routine) - Closed Specialty Diagnoses / Procedures Referred By Contac t Referred To Contact Radiology Diagnoses Ocular melanoma, left Malignant melanoma, unspecified site Procedures CT Neck Soft Tissue w Contrast (Generic) Arturo Cordero MD [facility] DR [place] [address] [facility] [place] [address] Referral ID Status Reason Start Date Expiration Date V isits Requested Visits Authorized [id number] Closed Specialty Service Requested 06/08/2020 12/06/2021 1 1 * Diagnostic Test (Routine) - Closed Specialty Diagnoses / Procedures Referred By Contac t Referred To Contact Radiology Diagnoses Ocular melanoma, left Renal cell cancer, left Procedures CT Chest Abdomen Pelvis w Contrast (Generic) Sri Frederick MD [facility] DR HEMATOLOGY/[place] [address] [facility] [place] [address] Referral ID Status Reason Start Date Expiration Date V isits Requested Visits Authorized [id number] Closed Specialty Service Requested 05/26/2020 11/23/2021 1 1 Reason for Visit * Diagnostic Test (Routine) - Closed Specialty Diagnoses / Procedures Referred By Contac t Referred To Contact Radiology Diagnoses Ocular melanoma, left Renal cell cancer, left Procedures CT Chest Abdomen Pelvis w Contrast (Generic) Sri Frederick MD [facility] DR HEMATOLOGY/[place] [address] [facility] [place] [address] Referral ID Status Reason Start Date Expiration Date V isits Requested Visits Authorized [id number] Closed Specialty Service Requested 05/26/2020 11/23/2021 1 1 Encounter Details Date Type Department Care Team (Latest Contact Info) Description 06/12/2020 3:32 PM EST - 06/12/2020 11:59 PM EST Hospital [place] [phone] Arturo Cordero MD [facility] DR [place] [address] Ocular melanoma, left; Renal cell cancer, left; [...] 08/05/2019 06/14/2021 fluticasone propionate (FLONASE) 50 mcg/actuation [place], Suspension 1 spray by Each Nare route [...] AM EST Office Visit Internal Medicine at [address] [address] Daryn Garrett MD [facility] DR LILI [place] [address] 10/02/2024 1:00 PM EDT Office [place] [phone] Juanpablo Hernandez MD [facility] [place] [address] 01/30/2025 1:30 PM EDT Laboratory Appointment Lab [place] [facility] [place] [address] [place] [phone] 01/30/2025 3:[address] [place] [phone] Arturo Cordero MD [facility] DR [place] [address] 01/30/2025 4:15 PM EDT Office Visit Hematology [place] [address] Arturo Cordero MD [facility] DR [place] [address] Scheduled Procedures Name Priority Associated Diagnoses Date/Ti [...] mLs documented in this encounter Care Teams Php Mysql Developer Relationship Specialty Start Date End Date Luis E Narayan MD [facility] [address] [place] [address] PCP - General Family Medicine 03/26/19 01/19/22 documented as of this encounter
--- OUTSIDE RECORDS SUMMARY | 2024-06-07 13:39 | XMS_ITS | Encounter Summary ---
[place] [address] Care Team Providers Care Coal Weigher Name Role Phone Luis E Narayan MD Primary Care Provider Encounter Details Date Type Department Care Team (Latest Contact Info) Description 06/08/2020 1:27 PM EST - 06/08/2020 11:59 PM EST Hospital [place] [address] Discharge Disposition: Home Social History Tobacco Use [...] 08/05/2019 06/14/2021 fluticasone propionate (FLONASE) 50 mcg/actuation [place], Suspension 1 spray by Each Nare route [...] AM EST Office Visit Internal Medicine at [address] [address] Daryn Garrett MD [facility] [address] [place] [address] 10/02/2024 1:00 PM EDT Office Visit [place] [phone] Juanpablo Hernandez MD [facility] [place] [address] 01/30/2025 1:30 PM EDT Laboratory Appointment [place] [facility] [place] [address] [place] [phone] 01/30/2025 3:[address] [place] [address] Arturo Cordero MD [facility] [place] [address] 01/30/2025 4:15 PM EDT Office Visit Hematology [place] [phone] Arturo Cordero MD [facility] [place] [address] Scheduled Procedures Name Priority Associated Diagnoses Date/Ti me EGD, UPPER GI ENDOSCOPY (WRV U 2.09) Irritable bowel syndrome with constipation COLONOSCOPY, DIAGNOSTIC (WRV U 3.26) Irritable bowel syndrome with constipation documented as of this encounter Visit Diagnoses Not on filedocumented in this encounter Care Teams Coal Weigher Relationship Specialty Start Date End Date Luis E Narayan MD [facility] [address] [place] [address] PCP - General Family Medicine 03/26/19 01/19/22 documented as of this encounter
--- OUTSIDE RECORDS SUMMARY | 2024-06-07 13:39 | XMS_ITS | Encounter Summary ---
Author Organization [facility] [place] [address] Care Team Providers Care Photo Engraver Name Role Phone Luis E Narayan MD Primary Care Provider [phone]- [phone] Encounter Details Date Type Department Care Team (Late st Contact Info) Description 08/17/2020 External Results [place] [phone] Social History Tobacco Use Types Packs/Day Years [...] AM EST Office Visit Internal Medicine at [place] [address] [place] [address] Daryn Garrett MD [facility] DR LILI [place] [address] 10/02/2024 1:00 PM EDT Office [place] [address] Juanpablo Hernandez MD [facility] [place] [address] 01/30/2025 1:30 PM EDT Laboratory Appointment Lab at [facility] [place] On[place] [address] [place], [place] [phone] 01/30/2025 3:[address] Scan at [place] [phone] Arturo Cordero MD [facility] DR HEMATOLOGY [place] [address] 01/30/2025 4:15 PM EDT Office Visit Hematology and Oncology at [place] [phone] Arturo Cordero MD [facility] DR HEMATOLOGY [place] [address] Scheduled Procedures Name Priority Associated Diagnoses Date/Ti [...] on filedocumented in this encounter Care Teams Photo Engraver Relationship Specialty Start Date End Date Luis E Narayan MD [facility] [address] [place] [address] PCP - General Family Medicine 03/26/19 01/19/22 documented as of this encounter
--- OUTSIDE RECORDS SUMMARY | 2024-06-07 13:39 | XMS_ITS | Encounter Summary ---
Author Organization [facility] [place] [address] Care Team Providers Care Credit Counselor Name Role Phone Luis E Narayan MD Primary Care Provider [phone]- [phone] Reason for Visit * Reason Comments Post Op Encounter Details Date Type Department Care Team (Late st Contact Info) Description 07/02/2020 1:45 PM EST Office Visit [place] [address] Juanpablo Hernandez MD [facility] [place] [address] Malignant melanoma of conjunctiva, left Social History [...] AM EST Office Visit Internal Medicine at [facility] [address] [place] [address] Daryn Garrett MD [facility] DR LILI [place] [address] 10/02/2024 1:00 PM EDT Office Visit [place] [phone] Juanpablo Hernandez MD [facility] [place] [address] 01/30/2025 1:30 PM EDT Laboratory Appointment Lab at [facility] Hematology Oncology [address] [place] [phone] 01/30/2025 3:[address] [place] [phone] Arturo Cordero MD [facility] DR [place] [address] 01/30/2025 4:15 PM EDT Office Visit Hematology [place] [phone] Arturo Cordero MD [facility] DR [place] [address] Scheduled Procedures Name Priority Associated Diagnoses Date/Ti me EGD, UPPER GI ENDOSCOPY (WRV U 2.09) Irritable bowel syndrome with constipation COLONOSCOPY, DIAGNOSTIC (WRV U 3.26) Irritable bowel syndrome with constipation documented as of this encounter Visit Diagnoses Diagnosis Malignant melanoma of conjunctiva, left documented in this encounter Care Teams Credit Counselor Relationship Specialty Start Date End Date Luis E Narayan MD [facility] [address] [place] [address] PCP - General Family Medicine 03/26/19 01/19/22 documented as of this encounter
--- OUTSIDE RECORDS SUMMARY | 2024-06-07 13:39 | XMS_ITS | Encounter Summary ---
Author Organization [facility] [place] [address] Care Team Providers Care Applications Support Engineer Name Role Phone Luis E Narayan MD Primary Care Provider [phone] Reason for Referral * Diagnostic Test (Routine) - Closed Specialty Diagnoses / Procedures Referred By Contac t Referred To Contact Radiology Diagnoses Ocular melanoma, left Procedures MRI Brain wwo Contrast (Generic) Sri Frederick MD [facility] DR HEMATOLOGY/[place] [address] [facility] [place] [place] [address] Referral ID Status Reason Start Date Expiration Date V isits Requested Visits Authorized [id number] Closed Specialty Service Requested 05/26/2020 11/23/2021 1 1 * Diagnostic Test (Routine) - Closed Specialty Diagnoses / Procedures Referred By Contchrissy t Referred To Contact Radiology Diagnoses Ocular melanoma, left Renal cell cancer, left Procedures CT Chest Abdomen Pelvis w Contrast (Generic) Sri Frederick MD [facility] HEMATOLOGY/[place] [address] [facility] [place] [address] Referral ID Status Reason Start Date Expiration Date V isits Requested Visits Authorized [id number] Closed Specialty Service Requested 05/26/2020 11/23/2021 1 1 Reason for Visit * Reason Comments Follow-up * Consultation (Urgent) - Closed Specialty Diagnoses / Procedures Referred By Gonzalez kumari Referred To Contact Hematology and Oncology Diagnoses Conjunctival tumor Juanpablo Hernandez MD [facility] [place] [place] [address] [facility] [address] [place] [address] Referral ID Status Reason Start Date Expiration Date V isits Requested Visits Authorized [id number] Closed Consult, Test & Treat 05/19/2020 05/19/2021 1 1 Encounter Details Date Type Department Care Team (Late st Contact Info) Description 05/26/2020 2:00 PM EST Office Visit Hematology [place] [address] Arturo Cordero MD [facility] [address] [place] [address] Leandra Lopes APRN [facility] [place] [address] Sri Frederick MD [facility] DR HEMATOLOGY/[place] [address] Ocular melanoma, left (Primary Dx); Renal cell [...] - 05/26/2020 2:00 PM EST INITIAL VISIT [facility] NOTE REFERING PHYSICIAN: Dr. Juanpablo [...] management - fall 2018: saw a new loan originator and was referred to Dr. 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 Medina - 03/31/2020: saw her loan originator Dr. Hernandez and was noted to have [...] uses inhalerswith good effect ??? Atherosclerosis of [place] coronary artery of [...] 3.47) performed by Juanpablo Hernandez MD at [facility] ??? PRO EXCIS COR[place]A LESN Left 05/14/2020 EXCISION OF LESION, [place], EXCEPT PTERYGIUM (WRVU 7.5) performed by Juanpablo Hernandez MD at [facility] ??? PRO LAP, PARTIAL NEPHRECTOMY Left 06/28/2019 LAPAROSCOPY, PARTIAL NEPHRECTOMY, ROBOTIC ASSIST (WRVU 27.41) performed by Avila Medina MD at [facility] MAIN OR ??? 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 [...] EST Office Visit Internal Medicine at [address] [phone] Daryn Garrett MD [facility] DR LILI [place] [address] 10/02/2024 1:00 PM EDT Office [place] [phone] Juanpablo Hernandez MD [facility] [place] [address] 01/30/2025 1:30 PM EDT Laboratory Appointment Lab [place] [facility] [place] [address] [place] [phone] 01/30/2025 3:[address] [place] [phone] Arturo Cordero MD [facility] [place] [address] 01/30/2025 4:15 PM EDT Office Visit Hematology [place] [address] Arturo Cordero MD [facility] DR [place] [address] Scheduled Orders Name Type Priority Associated Diagnoses Orde r Schedule Specimen to Pathology Additional Testing Pathology/Cytol ogy STAT Ocular melanoma, left Renal cell cancer, left Ordered: 05/26/2020 Scheduled Procedures Name Priority Associated Diagnoses Date/Ti [...] ? Electronically signed by: Paulina Saldivar MD, [facility] ([phone]), at 06/14/2020 8:22 AM Narrative 06/14/2020 8:22 [...] below. Electronically signed by: Paulina Saldivar MD, [facility]([phone]), at 06/14/2020 8:22 AM Arturo Cordero MD [...] ? Electronically signed by: Abhay Long MD, [facility] ([phone]), at 06/12/2020 4:58 PM Narrative 06/12/2020 4:58 [...] below. Electronically signed by: Abhay Long MD, [facility]([phone]), at 06/12/2020 4:58 PM Arturo Cordero MD IMG MRI ORDERABLES * T4, free (06/12/2020 2:00 PM EST) Free T4 1.01 0.93 - 1.70 ng/dL [facility] Blood specimen (specimen) 06/12/2020 2:00 PM EST 06/12/2020 2:04 PM EST Narrative Resulting Agency Comment Spec In Lab Arturo Cordero MD CHEMISTRY ORDERABLES [facility] [place] [address] * TSH (06/12/2020 2:00 PM EST) Thyroid Stimulating Hormone 2.53 0.27 - 4.20 mcIU/mL [facility] Blood specimen (specimen) 06/12/2020 2:00 PM EST 06/12/2020 2:04 PM EST Narrative Resulting Agency Comment Spec In Lab Arturo Cordero MD CHEMISTRY ORDERABLES Performing Organization Address [facility] Co de Phone Number [facility] [place] [address] * Lactate Dehydrogenase (06/12/2020 2:00 PM EST) Lactate Dehydrogenase 198 110 - 220 unit/L [facility] Blood specimen (specimen) 06/12/2020 2:00 PM EST 06/12/2020 2:04 PM EST Narrative Resulting Agency Comment Spec In Lab Arturo Cordero MD CHEMISTRY ORDERABLES Performing Organization Address [facility] Phone Number [facility] [place] [address] * Comprehensive metabolic panel (non-fasting) (06/12/2020 2:00 PM EST) Glucose 166 65 - 199 mg/dL [facility] Comment:Diabetes: >=200 mg/d L plus symptoms Blood Urea Nitrogen 17 8 - 18 mg/dL [facility] Creatinine 0.92 0.70 - 1.20 mg/dL [facility] [...] questions. Chloride 104 98 - 107 mmol/L [facility] Carbon Dioxide 28 22 - 31 mmol/L [facility] Anion Gap 8 5 - 15 mmol/L [facility] Calcium 9.4 8.5 - 10.5 mg/dL [facility] Protein, Total 6.8 6.1 - 8.0 gm/dL [facility] Albumin 4.4 3.2 - 5.2 gm/dL [facility] Aspartate Aminotransferase 17 0 - 30 unit/L [facility] Alanine Aminotransferase 22 0 - 30 unit/L [facility] Alkaline Phosphatase 102 35 - 105 unit/L [facility] Bilirubin, Total 0.4 0.2 - 1.3 mg/dL [facility] Est Glomerular Filtration Rate 68 >=60 mL/min/1. 73 m?? [facility] [...] In Lab Arturo Cordero MD CHEMISTRY ORDERABLES [facility] [place] [address] documented in this encounter Visit Diagnoses Diagnosis Ocular melanoma, left- Primary Renal cell cancer, left Ocular melanoma, left Renal cell cancer, left Malignant melanoma, unspecified site Ocular melanoma, left documented in this encounter Care Teams Applications Support Engineer Relationship Specialty Start Date End Date uLis E Narayan MD [facility] [address] [place] [address] PCP - General Family Medicine 03/26/19 01/19/22 documented as of this encounter
--- OUTSIDE RECORDS SUMMARY | 2024-06-07 13:39 | XMS_ITS | Encounter Summary ---
Author Organization [facility] Address [facility] [place] [address] Care Team Providers Care Packaging Mechanic Name Role Phone Luis E Narayan MD Primary Care Provider [phone]- [phone] Reason for Visit * Reason Comments Medication Refill Encounter Details Date Type Department Care Team (Late st Contact Info) Description 08/02/2020 Refill Family Medicine at [facility] [address] [place] [address] Luis E Narayan MD [facility] [address] [place] [address] Social History Tobacco Use Types Packs/Day Years [...] at [facility] [address] [place] [address] Daryn Garrett MD [facility] [address] LILI WALKER - PRIMARY CARE [place], [place] [phone] 10/02/2024 1:00 PM EDT Office [place] [address] Juanpablo Hernandez MD [facility] [place] [address] 01/30/2025 1:30 PM EDT Laboratory Appointment Lab at [facility] Hematology Oncology [address] [place] [phone] 01/30/2025 3:[address] Scan at [place] [address] Arturo Cordero MD [facility] [place] [address] 01/30/2025 4:15 PM EDT Office Visit [place]ology [place] [phone] Arturo Cordero MD [facility] [place]AT[place] [address] Scheduled Procedures Name Priority Associated Diagnoses Date/Ti me EGD, UPPER GI ENDOSCOPY (WRV U 2.09) Irritable bowel syndrome with constipation COLONOSCOPY, DIAGNOSTIC (WRV U 3.26) Irritable bowel syndrome with constipation documented as of this encounter Visit Diagnoses Not on filedocumented in this encounter Care Teams Packaging Mechanic Relationship Specialty Start Date End Date Luis E Narayan MD [facility] [address] [place] [address] PCP - General Family Medicine 03/26/19 01/19/22 documented as of this encounter
--- OUTSIDE RECORDS SUMMARY | 2024-06-07 13:40 | XMS_ITS | Encounter Summary ---
Author Organization [facility] [place] [address] Care Team Providers Care Estimator Binding Name Role Phone Luis E Narayan MD Primary Care Provider Reason for Referral * Consultation (Routine) - Closed Specialty Diagnoses / Procedures Referred By Gonzalez kumari Referred To Contact Primary Care Diagnoses Bipolar affective disorder in remission Recurrent major depressive disorder, in remission Luis E Narayan MD [facility] [place] [address] [facility] Medicine [address] [place] [address] Referral ID Status Reason Start Date Expiration Date V isits Requested Visits Authorized [id number] Closed Specialty Service Requested 01/31/2020 01/30/2021 1 1 Reason for Visit * Reason Comments Follow-up here for a follow up re. blood tests Encounter Details Date Type Department Care Team (Late Contact Info) Description 01/31/2020 3:00 PM EDT Office Visit Family Medicine at [facility] [address] [place] [address] Luis E Narayan MD [facility] [place] [address] Bipolar affective disorder in remission; [...] causing significant difficulty with ADLs. 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 Still has neuropsych/cognitive testing Mood [...] Future; Expected date: 01/31/2020 - DEANNA ([facility] Future; Expected date: 01/31/2020 - CRP, acute inflammation; Future; Expected date: 01/31/2020 Diabetes - controlled, cont metformin 1000mg bid documented in this encounter Plan of Treatment Upcoming Encounters Date Type Department Care Team (Late st Contact Info) Description 06/28/2024 9:30 AM EST Office Visit Internal Medicine at [facility] [address] [place] [address] Daryn Garrett MD [facility] DR LILI AZEVEDO [place] [address] 10/02/2024 1:00 PM EDT Office Visit Ophthalmology at [place] [phone] Juanpablo Hernandez MD [facility] [place] [address] 01/30/2025 1:30 PM EDT Laboratory Appointment Lab at [facility] [place] Oncology [address] [place] [phone] 01/30/2025 3:[address] Scan at [place] [phone] Arturo Cordero MD [facility] DR HEMATOLOGY [place] [address] 01/30/2025 4:15 PM EDT Office Visit Hematology [place] [address] Arturo Cordero MD [facility] DR HEMATOLOGY [place] [address] Scheduled Procedures Name Priority Associated Diagnoses Date/Ti [...] acute inflammation (01/31/2020 4:07 PM EDT) Pathologist [facility] C-Reactive Protein 6.0(H) <=4.9 mg/L [facility] Blood specimen (specimen) 01/31/2020 4:07 PM EDT 01/31/2020 7:06 PM EDT Narrative Resulting Agency Comment Spec In Lab Luis E Narayan MD CHEMISTRY ORDERABLE S Performing Organization Address [facility]/ZIP Co de Phone Number [facility] [place] [address] * DEANNA ([facility] (01/31/2020 4:07 PM EDT) Pathologist [facility] DEANNA Neg Neg [facility] Comment:Anti-nuclear antibod ies were tested using an indirect immunofluorescent assay. Blood specimen (specimen) 01/31/2020 4:07 PM EDT 02/03/2020 7:29 AM EDT Narrative Resulting Agency Comment Spec In Lab Luis E Narayan MD LAB SEND OUT ORDERA BLES Performing Organization Address [facility]/ZIP Co de Phone Number [facility] [place] [address] * Rheumatoid factor, quant (01/31/2020 4:07 PM EDT) Pathologist [facility] Rheumatoid Factor <10 <=14 IU/mL [facility] Blood specimen (specimen) 01/31/2020 4:07 PM EDT 01/31/2020 7:06 PM EDT Narrative Resulting Agency Comment Spec In Lab Luis E Narayan MD CHEMISTRY ORDERABLE S Performing Organization Address [facility]/ZIP Co de Phone Number [facility] [place] [address] documented in this encounter Visit Diagnoses Diagnosis Bipolar affective disorder in remission Recurrent major depressive disorder, in remission Arthralgia, unspecified joint documented in this encounter Care Teams Estimator Binding Relationship Specialty Start Date End Date Luis E Narayan MD [facility] [address] [place] [address] PCP - General Family Medicine 03/26/19 01/19/22 documented as of this encounter
--- OUTSIDE RECORDS SUMMARY | 2024-06-07 13:40 | XMS_ITS | Encounter Summary ---
Author Organization Replaced By [facility] Address [facility] [place] [address] Care Team Providers Care Border Measurer And Cutter Name Role Phone Luis E Narayan MD Primary Care Provider Reason for Visit * Reason Comments [place]am [place]14[place] [facility] [place] Ez[place] - bx of LT eye ?Cancer - when should she stop asprin & plavix prior to surgery Encounter Details Date Type Department Care Team (Late st Contact Info) Description 05/06/2020 2:20 PM EDT Office Visit Family Medicine at [facility] [address] [phone] Rebecca Mcgill APRN [facility] [place] [address] Pre-op examination; Preventative health care Social History [...] this encounter Progress Notes * Rebecca Mcgill, TABLET REPAIR - 05/06/2020 2:20 PM EDT cc: Alize [...] Diagnosis Code ??? 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 [...] AM EST Office Visit Internal Medicine at [address] [phone] Daryn Garrett MD [facility] [address] LILI [place] [address] 10/02/2024 1:00 PM EDT Office [place] [phone] Juanpablo Hernandez MD [facility] [place] [address] 01/30/2025 1:30 PM EDT Laboratory Appointment Lab [place] [facility] [place] On[place] [address] [place] [phone] 01/30/2025 3:[address] [place] [address] Arturo Cordero MD [facility] [place] [address] 01/30/2025 4:15 PM EDT Office Visit Hematology [place] [address] Arturo Cordero MD [facility] [place] [address] Scheduled Procedures Name Priority Associated Diagnoses Date/Ti me EGD, UPPER GI ENDOSCOPY (WRV U 2.09) Irritable bowel syndrome with constipation COLONOSCOPY, DIAGNOSTIC (WRV U 3.26) Irritable bowel syndrome with constipation documented as of this encounter Visit Diagnoses Diagnosis Pre-op examination Preoperative examination, unspecified Preventative health care Routine general medical examination at a health care facility documented in this encounter Care Teams Border Measurer And Cutter Relationship Specialty Start Date End Date Luis E Narayan MD [facility] [address] [place] [address] PCP - General Family Medicine 03/26/19 01/19/22 documented as of this encounter
--- OUTSIDE RECORDS SUMMARY | 2024-06-07 13:40 | XMS_ITS | Encounter Summary ---
Author Organization [facility] [place] [address] Care Team Providers Care Eight Section Blower Name Role Phone Luis E Narayan MD Primary Care Provider Reason for Visit * Reason Onset Date Comments Bumped Appointment 11/19/2019 Encounter Details Date Type Department Care Team (Late st Contact Info) Description 11/19/2019 [place] [address] [facility] [place] [place] [address] Bumped Appointment Social History Tobacco Use Types [...] Visit Internal Medicine at [facility] [address] [place] [address] [facility] [address] LILI [place] [address] 10/02/2024 1:00 PM EDT Office [place] [phone] [facility] [place] [address] 01/30/2025 1:30 PM EDT Laboratory Appointment Lab at [place] Hematology Oncology [address] [place] [phone] 01/30/2025 3:[address] [place] [phone] [facility] [place] [address] 01/30/2025 4:15 PM EDT Office Visit Hematology [place] [phone] [facility] [address] [place] [address] Scheduled Procedures Name Priority Associated Diagnoses Date/Ti me EGD, UPPER GI ENDOSCOPY (WRV U 2.09) Irritable bowel syndrome with constipation COLONOSCOPY, DIAGNOSTIC (WRV U 3.26) Irritable bowel syndrome with constipation documented as of this encounter Visit Diagnoses Not on filedocumented in this encounter Care Teams Eight Section Blower Relationship Specialty Start Date End Date Luis E Narayan MD [facility] DR LILI [place] [address] PCP - General Family Medicine 03/26/19 01/19/22 documented as of this encounter
--- OUTSIDE RECORDS SUMMARY | 2024-06-07 13:40 | XMS_ITS | Encounter Summary ---
Author Organization [facility] Address [facility] [place] [address] Care Team Providers Care Dry End Operator Name Role Phone Luis E Narayan MD Primary Care Provider +1- [phone] Encounter Details Date Type Department Care Team (Late st Contact Info) Description 11/06/2019 11:30 AM EDT TH Visit (TeleHealth) Sleep Center at [facility] [address] [place] [address] Jhonny Morataya MD [facility] [place] [address] TITO (obstructive sleep apnea); Chronic insomnia; RLS [...] drive. If you get sleepy while driving pullman car repairer and nap. You may resume driving once you feel alert. 11) Read No More Sleepless Nights by Mack Heaton PhD. 12) Dr Morataya will send a prescription to [facility] for a pressure increase. If you have problems with the pressure increase please let my office know at [phone] 13) Not getting enough sleep may lead [...] clinic office visit. yes Patient Location: At [facility] patient is located in at time of this visit: [place] Chief Complaint: Daytime tiredness HPI: Ms. [...] no change in treatment ?? Re-evaluation in [facility] 05/09/19 On CPAP still and [...] regularly in the past. Questionnaires: Patient-reported scores: [facility] 05/09/2019 [place] [facility] 10 (High Risk) Insomnia Severity Index - [facility] 05/07/2019 05/09/2019 [place] [facility] 7 10 (High Risk) Insomnia Severity Index 22 (Severe insomnia) - Daytime Symptoms: Naps: 2 x per week for up to 3 hrs Involuntary Dozing: no Driving: The patient does not report difficulty with sleepiness and driving anymore. [facility]. No [...] Diagnosis Code ??? 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 Altered [...] 0 ??? fluticasone propionate (FLONASE) 50 mcg/actuation [place], Suspension 1 spray by Each Nare route [...] Office Visit Internal Medicine at [place] [address] [place] [phone] Daryn Garrett MD [facility] DR LILI [place] [address] 10/02/2024 1:00 PM EDT Office [place] [phone] Juanpablo Hernandez MD [facility] [place] [address] 01/30/2025 1:30 PM EDT Laboratory Appointment Lab at [facility] Hematology Oncology [address] [place] [phone] 01/30/2025 3:[address] [place] [phone] Arturo Cordero MD [facility] [place] [address] 01/30/2025 4:15 PM EDT Office Visit Hematology [place] [phone] Arturo Cordero MD [facility] DR HEMATOLOGY AND ONCOLOGY [place], [place] [phone] Scheduled Procedures Name Priority Associated Diagnoses Date/Ti [...] (RLS) documented in this encounter Care Teams Dry End Operator Relationship Specialty Start Date End Date Luis E Narayan MD [facility] DR LILI [place] [address] PCP - General Family Medicine 03/26/19 01/19/22 documented as of this encounter
--- OUTSIDE RECORDS SUMMARY | 2024-06-07 13:40 | XMS_ITS | Encounter Summary ---
Author Organization [facility] Address [facility] [place] [address] Care Team Providers Care Software Reverse Engineer Name Role Phone Luis E Narayan MD Primary Care Provider +1- [phone] Reason for Visit * Reason Onset Date Comments Request For Record 02/28/2020 [facility] Encounter Details Date Type Department Care Team (Late Contact Info) Description 02/28/2020 Telephone Internal Medicine at [facility] [address] [place] [phone] Denisse Hunter CCMA Request For Record ([facility]) Social History Tobacco Use Types Packs/Day Years [...] Medicine at [facility] [address] [place] [address] Daryn Garrett MD [facility] [address] LILI [place] [address] 10/02/2024 1:00 PM EDT Office [place] [phone] Juanpablo Hernandez MD [facility] [address] 01/30/2025 1:30 PM EDT Laboratory Appointment Lab at [facility] [place] [address] [place] [phone] 01/30/2025 3:[address] [place] [phone] Arturo Cordero MD [facility] DR HEMATOLOGY [place] [address] 01/30/2025 4:15 PM EDT Office Visit Hematology [place] [phone] Arturo Cordero MD [facility] DR HEMATOLOGY [place] [address] Scheduled Procedures Name Priority Associated Diagnoses Date/Ti me EGD, UPPER GI ENDOSCOPY (WRV U 2.09) Irritable bowel syndrome with constipation COLONOSCOPY, DIAGNOSTIC (WRV U 3.26) Irritable bowel syndrome with constipation documented as of this encounter Visit Diagnoses Not on filedocumented in this encounter Care Teams Software Reverse Engineer Relationship Specialty Start Date End Date Luis E Narayan MD [facility] DR LILI W[place] [address] PCP - General Family Medicine 03/26/19 01/19/22 documented as of this encounter
--- OUTSIDE RECORDS SUMMARY | 2024-06-07 13:40 | XMS_ITS | Encounter Summary ---
Author Organization [facility] Address [facility] [place] [address] Care Team Providers Care Cable Lacer Name Role Phone Luis E Narayan MD Primary Care Provider Encounter Details Date Type Department Care Team (Latest Contact Info) Description 01/13/2020 9:45 AM EDT - 01/13/2020 10:44 AM EDT Hospital Encounter XRay at [address] [place] [address] Avila Medina MD [facility] [place] [address] Renal cancer, left Discharge Disposition: Home Social [...] 08/05/2019 06/14/2021 fluticasone propionate (FLONASE) 50 mcg/actuation [place], Suspension 1 spray by Each Nare route [...] AM EST Office Visit Internal Medicine at [facility] [address] [place] [address] Daryn Garrett MD [facility] DR LILI WALKER [place] [address] 10/02/2024 1:00 PM EDT Office [place] [phone] Juanpablo Hernandez MD [facility] [place] [address] 01/30/2025 1:30 PM EDT Laboratory Appointment Lab [place] [facility] [place] [address] [place] [phone] 01/30/2025 3:[address] [place] [phone] Arturo Cordero MD [facility] HEMATOLOGY [place] [address] 01/30/2025 4:15 PM EDT Office Visit Hematology [place] [phone] Arturo Cordero MD [facility] DR HEMATOLOGY [place] [address] Scheduled Procedures Name Priority Associated Diagnoses Date/Ti [...] left documented in this encounter Care Teams Cable Lacer Relationship Specialty Start Date End Date Luis E Narayan MD [facility] [place] [address] PCP - General Family Medicine 03/26/19 01/19/22 documented as of this encounter
--- OUTSIDE RECORDS SUMMARY | 2024-06-07 13:40 | XMS_ITS | Encounter Summary ---
[place] [address] Care Team Providers Care Mortgage Loan Assistant Name Role Phone Luis E Narayan MD Primary Care Provider [phone] Reason for Visit * Auth/Cert Specialty Diagnoses / Procedures Referred By Gonzalez kumari Referred To Contact Diagnoses Pigmented large conjunctival lesion Procedures PRO EXCIS CORNEA LESN EXCISION OF LESION, CORNEA, EXCEPT PTERYGIUM (WRVU 7.5) Referral ID Status Reason Start Date Expiration Date Visits Re quested Visits Authorized [id number] 1 1 Encounter Details Date Type Department Care Team (Latest Contact Info) Description 05/14/2020 10:53 AM EST - 05/14/2020 1:25 PM EST Hospital Encounter [place] [address] Mert Hernandez MD [facility] [place] [address] Discharge Disposition: Home Social History Tobacco Use [...] surgery Mert Hernandez MD Section of ophthalmology [facility] [phone] - Keep your eye patched, shielded, clean and dry overnight. The patch will be removed during your follow up visit with Dr. Hernandez tomorrow. - The surgery center nurses should confirm time of your follow up appointment for tomorrow with . This appointment will be at the Eye Clinic in the main building at [facility]. - Mild discomfort is normal, but if you have any severe eye pain or bleeding call [phone] and ask to speak to the eye doctor union contract representative. - Call your Primary Care Doctor or [...] 08/05/2019 06/14/2021 fluticasone propionate (FLONASE) 50 mcg/actuation [place], Suspension 1 spray by Each Nare route [...] patient was questioned regarding travel outside of [place] states, fever, cough, SOB or other illness [...] will be taken, patient and caregiver/driver's license reviewing officer will be given a mask to wear the entire time they are in the [facility] building. * Grecia Lamb RN - 05/11/2020 9:20 AM EST During this call the patient was questioned regarding travel outside of [facility], fever, cough, SOB or other illness in [...] will be taken, patient and caregiver/driver's license reviewing officer will be given a mask to wear [...] Hernandez MD - 05/14/2020 1:14 PM EST [facility] Operative Note Patient Name: Alize Gramajo : [id number] MR#: [id number] Case Date: 05/14/2020 Surgeon: Surgeon(s) and Role: [...] 2 mL Surgical Staff/Assistants: Mert Hernandez M.D. ([id number]) * Preoperative Diagnosis: Limbal conjunctival tumor, left [...] fresh instruments were obtained.The amniotic membrane donor [id number] from [facility] was applied to the scleral bed and [...] EST Office Visit Internal Medicine at [address] [phone] Daryn Garrett MD [facility] DR LILI [place] [address] 10/02/2024 1:00 PM EDT Office Visit Ophthalmology at [place] [phone] Mert Hernandez MD [facility] [place] [address] 01/30/2025 1:30 PM EDT Laboratory Appointment Lab at [facility] Hematology Oncology [address] [place] [phone] 01/30/2025 3:[address] [place] [phone] Arturo Cordero MD [facility] DR [place] [address] 01/30/2025 4:15 PM EDT Office Visit Hematology [place] [phone] Arturo Cordero MD [facility] DR HEMATOLOGY [place] [address] Scheduled Procedures Name Priority Associated Diagnoses Date/Ti [...] Place Amniotic Membrane Ocular Surface;Single Layer Sutured ([id number]) 05/14/2020 12:04 PM EST Pigmented large conjunctival lesion Destr Corneal Lesn, Cryo, Photo, Therm ([id number]) 05/14/2020 12:04 PM EST Pigmented large conjunctival lesion Excis Cornea Lesn ([id number]) 05/14/2020 12:04 PM EST Pigmented large conjunctival [...] follow Mert Hernandez MD PATHOLOGY/CYTOLOGY O ULISES [facility] [place] [address] * Specimen to Pathology (05/14/2020 12:47 PM EST) AP Specimen 05/14/2020 12:4 7 PM EST 05/14/2020 12:47 PM EST Narrative [facility] - 05/14/2020 12:47 PM EST Specimen requisition ordered. ??Separate Pathology report to follow Mert Hernandez MD PATHOLOGY/CYTOLOGY O RDLESLEY [facility] [place] [address] * Specimen to Pathology (05/14/2020 12:47 PM EST) AP Specimen 05/14/2020 12:4 7 PM EST 05/14/2020 12:47 PM EST Narrative [facility] - 05/14/2020 12:47 PM EST Specimen requisition ordered. ??Separate Pathology report to follow Mert Hernandez MD PATHOLOGY/CYTOLOGY O ULISES Performing Organization Address [facility] de Phone Number [facility] [place] [address] * Specimen to Pathology (05/14/2020 12:47 PM EST) AP Specimen 05/14/2020 12:4 7 PM EST 05/14/2020 12:47 PM EST Narrative [facility] - 05/14/2020 12:47 PM EST Specimen requisition ordered. ??Separate Pathology report to follow Mert Hernandez MD PATHOLOGY/CYTOLOGY O ULISES Performing Organization Address [facility] de Phone Number [facility] [place] [address] * Solid Tumor NGS Panel (05/14/2020 12:40 PM EST) Tissue specimen (specimen) 05/14/2020 12:40 PM EST 06/01/2020 11:57 AM EST Narrative Resulting Agency Comment Spec In Lab Mert Hernandez MD PATHOLOGY/CYTOLOGY O ULISES Performing Organization Address [facility] de Phone Number [facility] [place] [address] * Surgical Pathology Report (05/14/2020 12:40 PM EST) Final Diagnosis [id number] ? Location: [facility] The signing pathologist has [...] PhD, Allen Verified: ??05/20/2020 ?Dermatopathologist Performed at: ??-[facility] Dept. of Pathology, [place], [place] DISCUSSION A( Left eye, conjunctiva excision) [...] EST Mert Hernandez MD PATHOLOGY/CYTOLOGY O RDERABLES [facility] [place] [phone] documented in this encounter Visit Diagnoses Not [...] time) documented in this encounter Care Teams Mortgage Loan Assistant Relationship Specialty Start Date End Date Luis E Narayan MD [facility] [place] [address] PCP - General Family Medicine 03/26/19 01/19/22 documented as of this encounter
--- OUTSIDE RECORDS SUMMARY | 2024-06-07 13:40 | XMS_ITS | Encounter Summary ---
Author Organization [facility] [place] [address] Care Team Providers Care Trader Fixed Income Name Role Phone Luis E Narayan MD Primary Care Provider Reason for Visit * Reason Onset Date Comments New Medication Request 02/21/2020 Encounter Details Date Type Department Care Team (Late st Contact Info) Description 02/21/2020 Telephone Family Medicine at [facility] [address] [place] [address] Medhat Phillips New Medication Request Social History [...] I reminded Alize to touch base w/ [facility] about seeking medication management there; if [...] send my- message: n Offered Appointment: n MA/Nurse/Main Galley Scullion contacted via: Message: y Call: n Pager: n documented in this encounter Plan of Treatment Upcoming Encounters Date Type Department Care Team (Late st Contact Info) Description 06/28/2024 9:30 AM EST Office Visit Internal Medicine at [address] [address] Daryn Garrett MD [facility] DR LILI [place] [address] 10/02/2024 1:00 PM EDT Office [place] [phone] Juanpablo Hernandez MD [facility] [address] 01/30/2025 1:30 PM EDT Laboratory Appointment Lab at [facility] Hematology Oncology [address] [place] [phone] 01/30/2025 3:[address] [place] [phone] Arturo Cordero MD [facility] HEMATOLOGY [place] [address] 01/30/2025 4:15 PM EDT Office Visit Hematology [place] [address] Arturo Cordero MD [facility] HEMATOLOGY [place] [address] Scheduled Procedures Name Priority Associated Diagnoses Date/Ti me EGD, UPPER GI ENDOSCOPY (WRV U 2.09) Irritable bowel syndrome with constipation COLONOSCOPY, DIAGNOSTIC (WRV U 3.26) Irritable bowel syndrome with constipation documented as of this encounter Visit Diagnoses Not on filedocumented in this encounter Care Teams Trader Fixed Income Relationship Specialty Start Date End Date Luis E Narayan MD [facility] [address] [place] [address] PCP - General Family Medicine 03/26/19 01/19/22 documented as of this encounter
--- OUTSIDE RECORDS SUMMARY | 2024-06-07 13:40 | XMS_ITS | Encounter Summary ---
[place] [address] Care Team Providers Care Robotics Mechanic Name Role Phone Luis E Narayan MD Primary Care Provider Reason for Visit * Auth/Cert Specialty Diagnoses / Procedures Referred By Gonzalez kumari Referred To Contact Diagnoses Pigmented large conjunctival lesion Procedures PRO EXCIS CORNEA LESN EXCISION OF LESION, CORNEA, EXCEPT PTERYGIUM (WRVU 7.5) Referral ID Status Reason Start Date Expiration Date Visits Re quested Visits Authorized [id number] 1 1 Encounter Details Date Type Department Care Team (Late st Contact Info) Description 05/14/2020 12:02 PM EST Anesthesia Event [place] [address] Aki George DO [facility] [place] [address] Felipe Ceballos MD [facility] [place] [address] Anesthesia Record Procedure Summary Procedure Name Responsible [...] 1124; median cubital vein (antecubital fossa), right; rlwa-ivw-uaovml catheter system; 22 gauge; Daisha MCCOLLUM ; [...] Procedure Summary Date: 05/14/20 Room / Location: [facility] [address] [place] [address] Anesthesia Start: 1202 Anesthesia Stop: 1312 Procedures: [...] All Anesthesia Providers: Anesthesiologist: Aki George DO [employer] COMMISSIONER: Chantell Castellanos CRNA Vitals Value Taken Time BP 136/78 05/14/20 1320 Temp 36.3 ??C (97.3 ??F) 05/14/20 1316 Pulse 65 05/14/20 1321 Resp 18 05/14/20 1316 SpO2 94 % 05/14/20 1321 Pain Level 0 05/14/20 1316 Vitals shown include unvalidated device data. Patient Location: PACU/[facility] Level of Consciousness: Awake and Alert [...] grade (VALENTINO 1) 2018 Normal Pap, HPV Mental Health Advanced Practice Nurse eConsult 2019: She should have pap/HPV cotest [...] Bipolar affective disorder in remission Diagnosis in [facility] records, unconfirmed ??? Anxiety ??? Type 2 diabetes mellitus without long-term current use of insulin ??? TITO (obstructive sleep apnea) PSG 03/05/10 @ 271 lbs: AHI of 27, [facility] AHI of 16, min saturation of 61%, [...] TSH, etc. ??? Coronary artery disease involving [place] coronary artery of [place] heart with angina pectoris History of angina [...] 27.41) performed by Avila Medina MD at [facility] MAIN OR Social History Tobacco Use [...] on CPAP, depression/anxiety/bipolar, HLD, HTN, CAD s/p ND and 4 stents to LCx in 10/2007, [...] EST Office Visit Internal Medicine at [facility] [address] [place] [address] Daryn Garrett MD [facility] DR LILI [place] [address] 10/02/2024 1:00 PM EDT Office [place] [phone] Juanpablo Hernandez MD [facility] [address] 01/30/2025 1:30 PM EDT Laboratory Appointment Lab at [facility] Hematology Oncology [address] [place] [phone] 01/30/2025 3:[address] [place] [phone] Arturo Cordero MD [facility] DR HEMATOLOGY [place] [address] 01/30/2025 4:15 PM EDT Office Visit Hematology [place] [address] Arturo Cordero MD [facility] DR HEMATOLOGY [place] [address] Scheduled Procedures Name Priority Associated Diagnoses Date/Ti [...] /hr documented in this encounter Care Teams Robotics Mechanic Relationship Specialty Start Date End Date Luis E Narayan MD [facility] DR LILI WALKER[place] [address] PCP - General Family Medicine 03/26/19 01/19/22 documented as of this encounter
--- OUTSIDE RECORDS SUMMARY | 2024-06-07 13:40 | XMS_ITS | Encounter Summary ---
Author Organization [facility] [place] [address] Care Team Providers Care Cold Meat Cook Name Role Phone Luis E Narayan MD Primary Care Provider Encounter Details Date Type Department Care Team (Late Contact Info) Description 08/28/2019 Telephone Family Medicine at [facility] [address] [place] [phone] Denisse López, RN Social History Tobacco Use [...] AM EST Office Visit Internal Medicine at [facility] [address] [place] [phone] Daryn Garrett MD [facility] DR LILI AZEVEDO - PRIMARY CARE [place], [place] [phone] 10/02/2024 1:00 PM EDT Office [place] [phone] Juanpablo Hernandez MD [facility] [place] [address] 01/30/2025 1:30 PM EDT Laboratory Appointment Lab at [facility] Hematology Oncology [address] [place], [place] [phone] 01/30/2025 3:[address] Scan at [place] [phone] Arturo Cordero MD [facility] HEMATOLOGY [place] [address] 01/30/2025 4:15 PM EDT Office Visit Hematology and Oncology at [place] [phone] Arturo Cordero MD [facility] HEMATOLOGY [place] [address] Scheduled Procedures Name Priority Associated Diagnoses Date/Ti me EGD, UPPER GI ENDOSCOPY (WRV U 2.09) Irritable bowel syndrome with constipation COLONOSCOPY, DIAGNOSTIC (WRV U 3.26) Irritable bowel syndrome with constipation documented as of this encounter Visit Diagnoses Not on filedocumented in this encounter Care Teams Cold Meat Cook Relationship Specialty Start Date End Date Luis E Narayan MD [facility] [address] [place] [address] PCP - General Family Medicine 03/26/19 01/19/22 documented as of this encounter
--- OUTSIDE RECORDS SUMMARY | 2024-06-07 13:40 | XMS_ITS | Encounter Summary ---
Author Organization [facility] [place] [address] Care Team Providers Care Rn Home Care Name Role Phone Luis E Narayan MD Primary Care Provider Reason for Visit * Auth/Cert Specialty Diagnoses / Procedures Referred By Gonzalez kumari Referred To Contact Diagnoses Pigmented large conjunctival lesion Procedures PRO EXCIS CORNEA LESN EXCISION OF LESION, CORNEA, EXCEPT PTERYGIUM (WRVU 7.5) Referral ID Status Reason Start Date Expiration Date Visits Re quested Visits Authorized [id number] 1 1 Encounter Details Date Type Department Care Team (Late st Contact Info) Description 05/14/2020 12:00 PM EST - 05/14/2020 12:55 PM EST Surgery [place] [address] Mert Hernandez MD [facility] [place] [address] EXCISION OF LESION, CORNEA, EXCEPT PTERYGIUM (WRVU [...] surgery Mert Hernandez MD Section of ophthalmology [facility] [phone] - Keep your eye patched, shielded, clean and dry overnight. The patch will be removed during your follow up visit with Dr. Hernandez tomorrow. - The surgery center nurses should confirm time of your follow up appointment for tomorrow with . This appointment will be at the Eye Clinic in the main building at [facility]. - Mild discomfort is normal, but if you have any severe eye pain or bleeding call [phone] and ask to speak to the eye doctor sail repair person. - Call your Primary Care Doctor or [...] 08/05/2019 06/14/2021 fluticasone propionate (FLONASE) 50 mcg/actuation [place], Suspension 1 spray by Each Nare route [...] patient was questioned regarding travel outside of [place] states, fever, cough, SOB or other illness [...] Hernandez MD - 05/14/2020 1:14 PM EST [facility] Operative Note Patient Name: Alize Gramajo : [id number] MR#: [id number] Case Date: 05/14/2020 Surgeon: Surgeon(s) and Role: [...] 2 mL Surgical Staff/Assistants: Mert Hernandez M.D. ([id number]) * Preoperative Diagnosis: Limbal conjunctival tumor, left [...] fresh instruments were obtained.The amniotic membrane donor [id number] from [place] was applied to the scleral bed and [...] whereit was grossed in with the pathologist. Alzie tolerated the procedure well and the eye [...] AM EST Office Visit Internal Medicine at [place] [address] [place] [address] Daryn Garrett MD [facility] [address] [place] [address] 10/02/2024 1:00 PM EDT Office [place] [phone] Mert Hernandez MD [facility] [place] [address] 01/30/2025 1:30 PM EDT Laboratory Appointment Lab at [facility] Hematology Oncology [address] [place] [address] 01/30/2025 3:[address] Scan at [place] [phone] Arturo Cordero MD [facility] [place] [address] 01/30/2025 4:15 PM EDT Office Visit Hematology and Oncology at [place] [phone] Arturo Cordero MD [facility] DR [place] [address] Scheduled Procedures Name Priority Associated Diagnoses Date/Ti [...] Place Amniotic Membrane Ocular Surface;Single Layer Sutured ([id number]) 05/14/2020 12:04 PM EST Pigmented large conjunctival lesion Destr Corneal Lesn, Cryo, Photo, Therm ([id number]) 05/14/2020 12:04 PM EST Pigmented large conjunctival lesion Excis Cornea Lesn ([id number]) 05/14/2020 12:04 PM EST Pigmented large conjunctival lesion EXCISION OF LESION, CORNEA, EXCEPT PTERYGIUM Routine 05/14/2020 10:58 AM EST documented in this encounter Results * Specimen to Pathology (05/14/2020 12:47 PM EST) AP Specimen 05/14/2020 12:4 7 PM EST 05/14/2020 12:47 PM EST Narrative [facility] - 05/14/2020 12:47 PM EST Specimen requisition ordered. ??Separate Pathology report to follow Mert Hernandez MD PATHOLOGY/CYTOLOGY O RDLESLEY [facility] [place] [address] * Specimen to Pathology (05/14/2020 12:47 PM EST) AP Specimen 05/14/2020 12:4 7 PM EST 05/14/2020 12:47 PM EST Narrative [facility] - 05/14/2020 12:47 PM EST Specimen requisition ordered. ??Separate Pathology report to follow Mert Hernandez MD PATHOLOGY/CYTOLOGY O RDERACELY [facility] [place] [address] * Specimen to Pathology (05/14/2020 12:47 PM EST) AP Specimen 05/14/2020 12:4 7 PM EST 05/14/2020 12:47 PM EST Narrative [facility] - 05/14/2020 12:47 PM EST Specimen requisition ordered. ??Separate Pathology report to follow Mert Hernandez MD PATHOLOGY/CYTOLOGY O ULISES Performing Organization Address [facility] de Phone Number [facility] [place] [address] * Specimen to Pathology (05/14/2020 12:47 PM EST) AP Specimen 05/14/2020 12:4 7 PM EST 05/14/2020 12:47 PM EST Narrative [facility] - 05/14/2020 12:47 PM EST Specimen requisition ordered. ??Separate Pathology report to follow Mert Hernandez MD PATHOLOGY/CYTOLOGY O ULISES Performing Organization Address [facility] de Phone Number [facility] [place] [address] * Solid Tumor NGS Panel (05/14/2020 12:40 PM EST) Tissue specimen (specimen) 05/14/2020 12:40 PM EST 06/01/2020 11:57 AM EST Narrative Resulting Agency Comment Spec In Lab Mert Hernandez MD PATHOLOGY/CYTOLOGY O ULISES Performing Organization Address [facility] de Phone Number [facility] [place] [phone] * Surgical Pathology Report (05/14/2020 12:40 PM EST) Final Diagnosis [id number] ? Location: [facility] The signing pathologist has [...] PhD, Allen Verified: ??05/20/2020 ?Dermatopathologist Performed at: ??-[facility] Dept. of Pathology, [place], [place] DISCUSSION A( Left eye, conjunctiva excision) [...] labeled D1. ??mayra 05/20/2020 3:13 PM EST [facility] SPECIMEN FROM SKIN / Unknown 05/14/2020 12:40 PM EST 05/14/2020 12:40 PM EST SPECIMEN FROM SKIN / Unknown 05/14/2020 12:40 PM EST 05/14/2020 12:40 PM EST SPECIMEN FROM SKIN / Unknown 05/14/2020 12:40 PM EST 05/14/2020 12:40 PM EST SPECIMEN FROM SKIN / Unknown 05/14/2020 12:40 PM EST 05/14/2020 12:40 PM EST Mert Hernandez MD PATHOLOGY/CYTOLOGY [place] Performing Organization Address City/State/[facility] Co de Phone Number [facility] [place] [address] documented in this encounter Visit Diagnoses Not [...] (7.5 mg/mL) injection ONCE PRN, Starting on Caroele 05/14/20 at 1216, Until Carolee 05/14/20 at [...] time) documented in this encounter Care Teams Rn Home Care Relationship Specialty Start Date End Date Luis E Narayan MD [facility] [place] [address] PCP - General Family Medicine 03/26/19 01/19/22 documented as of this encounter
--- OUTSIDE RECORDS SUMMARY | 2024-06-07 13:40 | XMS_ITS | Encounter Summary ---
Author Organization [facility] Address [facility] [place] [address] Care Team Providers Care Sleep Technician Name Role Phone Luis E Narayan MD Primary Care Provider [phone] Reason for Visit * Reason Onset Date Comments Medication Refill 04/28/2020 Encounter Details Date Type Department Care Team (Late st Contact Info) Description 04/28/2020 Refill Family Medicine at [facility] [address] [place] [phone] Bonny [place] [address] Social History Tobacco Use Types Packs/Day Years [...] [facility] [address] [place] [address] Daryn Garrett MD [facility] DR LIL[address] [place] [address] 10/02/2024 1:00 PM EDT Office [place] [address] Juanpablo Hernandez MD [facility] [place] [address] 01/30/2025 1:30 PM EDT Laboratory Appointment Lab at [facility] [place]ematology Oncology [address] [place] [phone] 01/30/2025 3:[address] [place] [address] Arturo Cordero MD [facility] DR [place] [address] 01/30/2025 4:15 PM EDT Office Visit Hematology [place] [address] Arturo Cordero MD [facility] [place] [address] Scheduled Procedures Name Priority Associated Diagnoses Date/Ti me EGD, UPPER GI ENDOSCOPY (WRV U 2.09) Irritable bowel syndrome with constipation COLONOSCOPY, DIAGNOSTIC (WRV U 3.26) Irritable bowel syndrome with constipation documented as of this encounter Visit Diagnoses Not on filedocumented in this encounter Care Teams Sleep Technician Relationship Specialty Start Date End Date Luis E Narayan MD [facility] [address] [place] [address] PCP - General Family Medicine 03/26/19 01/19/22 documented as of this encounter
--- OUTSIDE RECORDS SUMMARY | 2024-06-07 13:40 | XMS_ITS | Encounter Summary ---
Author Organization [facility] Address [facility] [place] [address] Care Team Providers Care Welder/Fabricator Name Role Phone Luis E Narayan MD Primary Care Provider +1- [phone] Reason for Visit * Reason Onset Date Comments Medication Refill 01/27/2020 Encounter Details Date Type Department Care Team (Late st Contact Info) Description 01/27/2020 Refill Family Medicine at [facility] [address] [place] [address] Luis E Narayan MD [facility] DR LILI [place] [address] Type 2 diabetes mellitus without long-term current [...] Notes * Telephone Encounter - Ally Mcgarry, [facility] - 01/27/2020 3:32 PM EDT Prescription Refill [...] EST Office Visit Internal Medicine at [address] [phone] Daryn [place] MD [facility] DR LILI [place] [address] 10/02/2024 1:00 PM EDT Office [place] [phone] Juanpablo Hernandez MD [facility] [place] [address] 01/30/2025 1:30 PM EDT Laboratory Appointment Lab at [facility] Hematology Oncology [address] [place] [phone] 01/30/2025 3:[address] [place] [place] [address] Arturo Cordero MD [facility] DR [place] [address] 01/30/2025 4:15 PM EDT Office Visit [place] [address] Arturo Cordero MD [facility] [place] [address] Scheduled Procedures Name Priority Associated Diagnoses Date/Ti me EGD, UPPER GI ENDOSCOPY (WRV U 2.09) Irritable bowel syndrome with constipation COLONOSCOPY, DIAGNOSTIC (WRV U 3.26) Irritable bowel syndrome with constipation documented as of this encounter Visit Diagnoses Diagnosis Type 2 diabetes mellitus without long-term current use of insulin documented in this encounter Care Teams Welder/Fabricator Relationship Specialty Start Date End Date Luis E Narayan MD [facility] [address] [place] [address] PCP - General Family Medicine 03/26/19 01/19/22 documented as of this encounter
--- OUTSIDE RECORDS SUMMARY | 2024-06-07 13:40 | XMS_ITS | Encounter Summary ---
Author Organization [facility] Address [facility] [place] [address] Care Team Providers Care Environmental Economist Name Role Phone Luis E Narayan MD Primary Care Provider [phone]- [phone] Reason for Visit * Reason Onset Date Comments Medication Refill 09/04/2019 Encounter Details Date Type Department Care Team (Late st Contact Info) Description 09/04/2019 Refill Family Medicine at [facility] [address] [place] [phone] Bonny Emanuel MD [address] [place] [address] Social History Tobacco Use Types Packs/Day Years [...] AM EST Office Visit Internal Medicine at [facility] [address] [place] [address] Daryn [place] MD [facility] DR LILI AZEVEDO - [place] [address] 10/02/2024 1:00 PM EDT Office [place] [address] Juanpablo Hernandez MD [facility] [place] [address] 01/30/2025 1:30 PM EDT Laboratory Appointment Lab at [facility] Hematology Oncology [address] [place] [phone] 01/30/2025 3:[address] [place] [address] Arturo Cordero MD [facility] DR HEMATOLOGY [place] [address] 01/30/2025 4:15 PM EDT Office Visit Hematology [place] [address] Arturo Cordero MD [facility] DR HEMATOLOGY [place] [address] Scheduled Procedures Name Priority Associated Diagnoses Date/Ti me EGD, UPPER GI ENDOSCOPY (WRV U 2.09) Irritable bowel syndrome with constipation COLONOSCOPY, DIAGNOSTIC (WRV U 3.26) Irritable bowel syndrome with constipation documented as of this encounter Visit Diagnoses Not on filedocumented in this encounter Care Teams Environmental Economist Relationship Specialty Start Date End Date Luis E Narayan MD [facility] DR [address] [place] [address] PCP - General Family Medicine 03/26/19 01/19/22 documented as of this encounter
--- OUTSIDE RECORDS SUMMARY | 2024-06-07 13:40 | XMS_ITS | Encounter Summary ---
Author Organization [facility] Address [facility] [place] [address] Care Team Providers Care Limousine And Hearse Upholsterer Name Role Phone Daryn [place] MD Primary Care Provider [phone] Reason for Visit * Reason Onset Date Comments Medication Refill 09/28/2019 Encounter Details Date Type Department Care Team (Late st Contact Info) Description 09/28/2019 Refill Family Medicine at [facility] [address] [place] [phone] [address] [facility] DR LILI [place] [address] Social History Tobacco Use Types Packs/Day Years [...] [facility] [address] [place] [address] [facility] DR LILI [place] [address] 10/02/2024 1:00 PM EDT Office [place] [address] [facility] [place] [place] [address] 01/30/2025 1:30 PM EDT Laboratory Appointment Lab at [facility] Hematology Oncology [address] [place] [phone] 01/30/2025 3:[address] [place] [address] [facility] DR [place] [address] 01/30/2025 4:15 PM EDT Office Visit H[place]ology [place] [phone] [facility] DR [place] [address] Scheduled Procedures Name Priority Associated Diagnoses Date/Ti me EGD, UPPER GI ENDOSCOPY (WRV U 2.09) Irritable bowel syndrome with constipation COLONOSCOPY, DIAGNOSTIC (WRV U 3.26) Irritable bowel syndrome with constipation documented as of this encounter Visit Diagnoses Not on filedocumented in this encounter Care Teams Limousine And Hearse Upholsterer Relationship Specialty Start Date End Date Daryn Garrett MD [facility] DR LILI [place] [address] PCP - General 04/10/24 documented as of this encounter
--- OUTSIDE RECORDS SUMMARY | 2024-06-07 13:40 | XMS_ITS | Encounter Summary ---
Author Organization [facility] Address [facility] [place] [address] Care Team Providers Care Co Pilot Name Role Phone Luis E Narayan MD Primary Care Provider [phone]- [phone] Encounter Details Date Type Department Care Team (Late st Contact Info) Description 02/04/2020 Telephone Sleep Center at [facility] [address] [place] [address] Christine Aponte Social History Tobacco [...] at [facility] [address] [place] [address] Daryn [place] MD [facility] DR LILI [place] [address] 10/02/2024 1:00 PM EDT Office Visit Ophthalmology at [place] [phone] Juanpablo Hernandez MD [facility] [place] [address] 01/30/2025 1:30 PM EDT Laboratory Appointment Lab at [facility] [place] Hematology Oncology [address] [place] [phone] 01/30/2025 3:[address] [place] [address] Arturo Cordero MD [facility] DR [place] [address] 01/30/2025 4:15 PM EDT Office Visit Hematology [place] [phone] Arturo Cordero MD [facility] DR [place] [address] Scheduled Procedures Name Priority Associated Diagnoses Date/Ti me EGD, UPPER GI ENDOSCOPY (WRV U 2.09) Irritable bowel syndrome with constipation COLONOSCOPY, DIAGNOSTIC (WRV U 3.26) Irritable bowel syndrome with constipation documented as of this encounter Visit Diagnoses Not on filedocumented in this encounter Care Teams Co Pilot Relationship Specialty Start Date End Date Luis E Narayan MD [facility] DR LILI AZEV[place] [address] PCP - General Family Medicine 03/26/19 01/19/22 documented as of this encounter
--- OUTSIDE RECORDS SUMMARY | 2024-06-07 13:40 | XMS_ITS | Encounter Summary ---
Author Organization [facility] Address [facility] [place] [address] Care Team Providers Care Rack Carrier Name Role Phone Luis E Narayan MD Primary Care Provider [phone]- [phone] Reason for Visit * Reason Onset Date Comments Appointment 12/03/2019 Encounter Details Date Type Department Care Team (Late st Contact Info) Description 12/03/2019 Telephone Family Medicine at [facility] [address] [place] [address] Idalmis Bang Appointment Social History [...] [facility] [address] [place] [address] Daryn [place] MD [facility] DR LILI [place] [address] 10/02/2024 1:00 PM EDT Office Visit Ophthalmology at [address] Juanpablo Hernandez MD [facility] [place] [address] 01/30/2025 1:30 PM EDT Laboratory Appointment Lab at [facility] Hematology Oncology [address] [place] [address] 01/30/2025 3:[address] Scan at [place] [phone] Arturo Cordero MD [facility] DR HEMATOLOGY [place] [address] 01/30/2025 4:15 PM EDT Office Visit Hematology and Oncology at [address] Arturo Cordero MD [facility] DR [place]EMAT[place] [address] Scheduled Procedures Name Priority Associated Diagnoses Date/Ti me EGD, UPPER GI ENDOSCOPY (WRV U 2.09) Irritable bowel syndrome with constipation COLONOSCOPY, DIAGNOSTIC (WRV U 3.26) Irritable bowel syndrome with constipation documented as of this encounter Visit Diagnoses Not on filedocumented in this encounter Care Teams Rack Carrier Relationship Specialty Start Date End Date Luis E Narayan MD [facility] DR LILI [place]EV[place] [address] PCP - General Family Medicine 03/26/19 01/19/22 documented as of this encounter
--- OUTSIDE RECORDS SUMMARY | 2024-06-07 13:40 | XMS_ITS | Encounter Summary ---
Author Organization [facility] Address [facility] [place] [address] Care Team Providers Care Floriculture Professor Name Role Phone Darny [place] MD Primary Care Provider Reason for Visit * Reason Onset Date Comments Medication Refill 12/24/2019 Encounter Details Date Type Department Care Team (Late st Contact Info) Description 12/24/2019 Refill Family Medicine at [facility] [address] [place] [address] Luis E Narayan MD [facility] DR LILI [place] [address] Type 2 diabetes mellitus without long-term current [...] Medicine at [facility] [address] [place] [address] Daryn [place] MD [facility] DR LILI [place] [address] 10/02/2024 1:00 PM EDT Office [place] [phone] Juanpablo Hernandez MD [facility] [place] [address] 01/30/2025 1:30 PM EDT Laboratory Appointment Lab at [facility] Hematology Oncology [address] [place] [phone] 01/30/2025 3:[address] [place] [phone] Arturo Cordero MD [facility] DR [place] [address] 01/30/2025 4:15 PM EDT Office Visit Hematology [place] [address] Arturo Cordero MD [facility] DR [place] [address] Scheduled Procedures Name Priority Associated Diagnoses Date/Ti me EGD, UPPER GI ENDOSCOPY (WRV U 2.09) Irritable bowel syndrome with constipation COLONOSCOPY, DIAGNOSTIC (WRV U 3.26) Irritable bowel syndrome with constipation documented as of this encounter Results * Comprehensive metabolic panel (non-fasting) (01/13/2020 10:13 AM EDT) Glucose 156 65 - 199 mg/dL [facility] Comment:Diabetes: >=200 mg/d L plus symptoms Blood Urea Nitrogen 17 8 - 18 mg/dL [facility] Creatinine 0.86 0.70 - 1.20 mg/dL [facility] Sodium 141 135 - 145 mmol/L [facility] [...] questions. Chloride 105 98 - 107 mmol/L [facility] Carbon Dioxide 24 22 - 31 mmol/L [facility] Anion Gap 12 5 - 15 mmol/L [facility] Calcium 9.4 8.5 - 10.5 mg/dL [facility] Protein, Total 6.7 6.1 - 8.0 gm/dL [facility] Albumin 4.2 3.2 - 5.2 gm/dL [facility] Aspartate Aminotransferase 18 0 - 30 unit/L [facility] Alanine Aminotransferase 25 0 - 30 unit/L [facility] Alkaline Phosphatase 88 35 - 105 unit/L [facility] Bilirubin, Total 0.3 0.2 - 1.3 mg/dL [facility] Est Glomerular Filtration Rate 73 >=60 mL/min/1. 73 m?? [facility] Comment: The eGFR was calculated using the CKD-EPI equation. As with all creatinine based estimates of kidney function, eGFR values calculated with the CKD-EPI equation are not accurate in patients with acute kidney failure, extremes of body mass or the acutely ill. http://TalkApolis/DHMCnkf eGFR 85 >=60 mL/min/1. 73 m?? [facility] Comment: The eGFR was calculated using the CKD-EPI equation. As with all creatinine based estimates of kidney function, eGFR values calculated with the CKD-EPI equation are not accurate in patients with acute kidney failure, extremes of body mass or the acutely ill. [email or web address] Blood specimen (specimen) 01/13/2020 10:13 AM EDT 01/13/2020 10:22 AM EDT Narrative Resulting Agency Comment Spec In Lab Luis E Narayan MD CHEMISTRY ORDERABLE S [facility] [place] [address] * (ABNORMAL) Hemoglobin A1c (01/13/2020 10:13 AM EDT) Hemoglobin A1c 6.9(H) 4.3 - 5.6 % [facility] Comment: Reference Range: 4.3 - [...] Mellitus, Diabetes Care 2013; 36: Suppl. 1, G50-55 Estimated Average Glucose 151 mg/dL [facility] Comment: eAG equivalents for HbA1c [...] into estimated average glucose values. ??Diabetes Care 2008:31(8):6128-9162. Blood specimen (specimen) 01/13/2020 10:13 AM EDT 01/13/2020 10:22 AM EDT Narrative Resulting Agency Comment Spec In Lab Luis E Narayan MD CHEMISTRY ORDERABLE S Performing Organization Address City/State/[facility] Co de Phone Number [facility] [place] [address] documented in this encounter Visit Diagnoses Diagnosis Type 2 diabetes mellitus without long-term current use of insulin documented in this encounter Care Teams Floriculture Professor Relationship Specialty Start Date End Date Daryn [place] MD [facility] DR LILI [place] [address] PCP - General 04/10/24 documented as of this encounter
--- OUTSIDE RECORDS SUMMARY | 2024-06-07 13:40 | XMS_ITS | Encounter Summary ---
Author Organization [facility] [place] [address] Care Team Providers Care Ammunition Assembly Laborer Name Role Phone Luis E Narayan MD Primary Care Provider Encounter Details Date Type Department Care Team (Late st Contact Info) Description 02/19/2020 Telephone Family Medicine at [facility] [address] [place] [phone] Sofia Lorenzo Social History Tobacco Use Types [...] PM EDT Sent a quick fax to [facility]. [facility] [phone] requesting records * Telephone Encounter - Medhat Garcia - 02/21/2020 1:41 PM EDT Pt states she use to go to [facility]. [facility] * Telephone Encounter - [...] can upload them to her chart through [facility] or if she knows the name of the provider so that records can be requested? Thanks -Rachel documented in this encounter Plan of Treatment Upcoming Encounters Date Type Department Care Team (Late st Contact Info) Description 06/28/2024 9:30 AM EST Office Visit Internal Medicine at [address] [address] Daryn Garrett MD [facility] DR LILI [place] [address] 10/02/2024 1:00 PM EDT Office [place] [address] Juanpablo Hernandez MD [facility] [place] [address] 01/30/2025 1:30 PM EDT Laboratory Appointment Lab at [facility] Hematology Oncology [address] [place] [phone] 01/30/2025 3:[address] [place] [phone] Arturo Cordero MD [facility] HEMATOLOGY [place] [address] 01/30/2025 4:15 PM EDT Office Visit Hematology [place] [address] Arturo Cordero MD [facility] DR HEMATOLOGY [place] [address] Scheduled Procedures Name Priority Associated Diagnoses Date/Ti me EGD, UPPER GI ENDOSCOPY (WRV U 2.09) Irritable bowel syndrome with constipation COLONOSCOPY, DIAGNOSTIC (WRV U 3.26) Irritable bowel syndrome with constipation documented as of this encounter Visit Diagnoses Not on filedocumented in this encounter Care Teams Ammunition Assembly Laborer Relationship Specialty Start Date End Date Luis E Narayan MD [facility] DR LILI W[place] [address] PCP - General Family Medicine 03/26/19 01/19/22 documented as of this encounter
--- OUTSIDE RECORDS SUMMARY | 2024-06-07 13:40 | XMS_ITS | Encounter Summary ---
Author Organization [facility] [place] [address] Care Team Providers Care Nip Wrapper Name Role Phone Luis E Narayan MD Primary Care Provider [phone]- [phone] Encounter Details Date Type Department Care Team (Latest Contact Info) Description 01/13/2020 10:00 AM EDT Laboratory Appointment Lab [address] [place] [address] Type 2 diabetes mellitus without [...] AM EST Office Visit Internal Medicine at [address] [place] [address] Daryn [place] MD [facility] DR LILI [place]ER [place] [address] 10/02/2024 1:00 PM EDT Office [place] [address] Juanpablo Hernandez MD [facility] [place] [address] 01/30/2025 1:30 PM EDT Laboratory Appointment Lab at [facility] Hematology Oncology [address] [place], [place] [phone] 01/30/2025 3:[address] Scan at [place] [phone] Arturo Cordero MD [facility] HEMATOLOGY [place] [address] 01/30/2025 4:15 PM EDT Office Visit H[place]ology [place] [phone] Arturo Cordero MD [facility] DR HEMATOLOGY [place] [address] Scheduled Procedures Name Priority Associated Diagnoses Date/Ti [...] Hemoglobin A1c 6.9(H) 4.3 - 5.6 % [facility] Comment: Reference Range: [...] 1, S67-74 Estimated Average Glucose 151 mg/dL [facility] Comment: eAG equivalents [...] into estimated average glucose values. ??Diabetes Care 2008:31(8):6007-7163. Blood specimen (specimen) 01/13/2020 10:13 AM EDT 01/13/2020 10:22 AM EDT Narrative Resulting Agency Comment Spec In Lab LuisE Narayan MD CHEMISTRY ORDERABLE S [facility] [place] [address] * Comprehensive metabolic panel (non-fasting) (01/13/2020 10:13 AM EDT) Glucose 156 65 - 199 mg/dL [facility] Comment:Diabetes: >=200 mg/d L plus symptoms Blood Urea Nitrogen 17 8 - 18 mg/dL [facility] Creatinine 0.86 0.70 - 1.20 mg/dL [facility] Sodium 141 135 - 145 mmol/L [facility] Potassium 4.3 3.5 - 5.0 mmol/L [facility] Comment: Please note: ??Patients with WBC >100,000 may have falsely elevated Potassium levels. ??For accurate Potassium quantification in these patients send serum separator tube (gold top) for subsequent determinations. ??Contact the Clinical Chemistry Laboratory if there are any questions. Chloride 105 98 - 107 mmol/L [facility] Carbon Dioxide 24 22 - 31 mmol/L [facility] Anion Gap 12 5 - 15 mmol/L [facility] Calcium 9.4 8.5 - 10.5 mg/dL [facility] Protein, Total 6.7 6.1 - 8.0 gm/dL [facility] Albumin 4.2 3.2 - 5.2 gm/dL [facility] Aspartate Aminotransferase 18 0 - 30 unit/L [facility] Alanine Aminotransferase 25 0 - 30 unit/L [facility] Alkaline Phosphatase 88 35 - 105 unit/L [facility] Bilirubin, Total 0.3 0.2 - 1.3 mg/dL [facility] Est Glomerular Filtration Rate 73 >=60 mL/min/1. 73 m?? [facility] Comment: The eGFR was calculated using the CKD-EPI equation. As with all creatinine based estimates of kidney function, eGFR values calculated with the CKD-EPI equation are not accurate in patients with acute kidney failure, extremes of body mass or the acutely ill. http://[email or web address]/DHMCnkf eGFR 85 >=60 mL/min/1. 73 m?? [facility] Comment: The eGFR was calculated using the CKD-EPI equation. As with all creatinine based estimates of kidney function, eGFR values calculated with the CKD-EPI equation are not accurate in patients with acute kidney failure, extremes of body mass or the acutely ill. [email or web address] Blood specimen (specimen) 01/13/2020 10:13 AM EDT 01/13/2020 10:22 AM EDT Narrative Resulting Agency Comment Spec In Lab Luis E Narayan MD CHEMISTRY ORDERABLE S [facility] [place] [address] documented in this encounter Visit Diagnoses Diagnosis Type 2 diabetes mellitus without long-term current use of insulin Renal cancer, left documented in this encounter Care Teams Nip Wrapper Relationship Specialty Start Date End Date Luis E Narayan MD [facility] DR LILI WALK[place] [address] PCP - General Family Medicine 03/26/19 01/19/22 documented as of this encounter
--- OUTSIDE RECORDS SUMMARY | 2024-06-07 13:40 | XMS_ITS | Encounter Summary ---
Author Organization [facility] [place] [address] Care Team Providers Care Software Analyst Name Role Phone Luis E Narayan MD Primary Care Provider Reason for Visit * Reason Onset Date Comments Appointment 03/27/2020 Encounter Details Date Type Department Care Team (Late st Contact Info) Description 03/27/2020 Telephone [place] [address] Juanpablo Hernandez MD [facility] [place] [address] Appointment Social History Tobacco Use Types Packs/Day [...] at [facility] [address] [place] [address] Daryn Garrett MD [facility] DR LILI WALKER - [place] [address] 10/02/2024 1:00 PM EDT Office [place] [phone] Juanpablo Hernandez MD [facility] [place] [address] 01/30/2025 1:30 PM EDT Laboratory Appointment Lab at [facility] Hematology Oncology [address] [place] [phone] 01/30/2025 3:[address] [place] [phone] Arturo Cordero MD [facility] DR HEMATOLOGY [place] [address] 01/30/2025 4:15 PM EDT Office Visit Hematology [place] [phone] Arturo Cordero MD [facility] DR HEMATOLOGY [place] [address] Scheduled Procedures Name Priority Associated Diagnoses Date/Ti me EGD, UPPER GI ENDOSCOPY (WRV U 2.09) Irritable bowel syndrome with constipation COLONOSCOPY, DIAGNOSTIC (WRV U 3.26) Irritable bowel syndrome with constipation documented as of this encounter Visit Diagnoses Not on filedocumented in this encounter Care Teams Software Analyst Relationship Specialty Start Date End Date Luis E Narayan MD [facility] DR LILI WALKER[place] [address] PCP - General Family Medicine 03/26/19 01/19/22 documented as of this encounter
--- OUTSIDE RECORDS SUMMARY | 2024-06-07 13:40 | XMS_ITS | Encounter Summary ---
Author Organization [facility] Address [facility] [place] [address] Care Team Providers Care Retort Load Expediter Name Role Phone Luis E Narayan MD Primary Care Provider Reason for Visit * Consultation (Routine) - Closed Specialty Diagnoses / Procedures Referred By Gonzalez kumari Referred To Contact Sleep Center Diagnoses TITO (obstructive sleep apnea) Procedures PRG POLYLSOM 6+ YRS SLEEP W CPAP W 4+ ADDL ABHILASH Jhonny Garrett MD [facility] [place] [address] [facility] [address] [place] [address] Referral ID Status Reason Start Date Expiration Date V isits Requested Visits Authorized [id number] Closed Test Only 08/02/2019 01/30/2020 1 1 Encounter Details Date Type Department Care Team (Late st Contact Info) Description 08/13/2019 7:30 PM EST Procedure visit Sleep Center at [address] [place] [phone] Jhonny Morataya MD [facility] [place] [address] TITO (obstructive sleep apnea) Social [...] Dr Morataya after 8 weeks on treatment. [facility] Sleep Disorders Center REPORT of Split-Night Polysomnography [...] 0.0 Hypopneas & RERAs Hypopnea Definitions: Hypopnea* [facility] Hypopnea AAS Central Hypopneas Hypopneas All [...] Index (Total): 0.0 2.9 0.0 2.9 4.1 *[facility]-defined hypopneas include only hypopneas with a [...] EST Office Visit Internal Medicine at [address] [address] Daryn Garrett MD [facility] DR LIL[place] [address] 10/02/2024 1:00 PM EDT Office [place] [phone] Juanpablo Hernandez MD [facility] [address] 01/30/2025 1:30 PM EDT Laboratory Appointment Lab at [facility] Hematology Oncology [address] [place] [phone] 01/30/2025 3:[address] [place] [phone] Arturo Cordero MD [facility] [place] [address] 01/30/2025 4:15 PM EDT Office Visit [place]ology [place] [phone] Arturo Cordero MD [facility] [place] [address] Scheduled Procedures Name Priority Associated Diagnoses Date/Ti me EGD, UPPER GI ENDOSCOPY (WRV U 2.09) Irritable bowel syndrome with constipation COLONOSCOPY, DIAGNOSTIC (WRV U 3.26) Irritable bowel syndrome with constipation documented as of this encounter Visit Diagnoses Diagnosis TITO (obstructive sleep apnea) Obstructive sleep apnea (adult) (pediatric) documented in this encounter Care Teams Retort Load Expediter Relationship Specialty Start Date End Date Luis E Narayan MD [facility] [address] [place] [address] PCP - General Family Medicine 03/26/19 01/19/22 documented as of this encounter
--- OUTSIDE RECORDS SUMMARY | 2024-06-07 13:40 | XMS_ITS | Encounter Summary ---
[place] [address] Care Team Providers Care Wood Box Maker Name Role Phone Luis E Narayan MD Primary Care Provider [phone]- [phone] Encounter Details Date Type Department Care Team (Late st Contact Info) Description 01/03/2020 [place] [address] Aleisha [place] APRN [facility] [place] [address] Social History Tobacco Use Types Packs/Day Years [...] this morning. The Prior Auth number is [id number], effective today. We will get a fax to our office as well. [facility]. Surgical date 06/28/2020, and first [...] 9:02 AM EDT To: Avila Medina MD, [employer] Urology Nurse, * Subject: ALIZE MANJARREZ [[id number]] ? Good morning, ALIZE MANJARREZ [[id number]] is currently scheduled for a CT Abdomen WWO Contrast on 01/13/2020. ??We have received notification from [employer] on behalf of [place] [employer] that our [...] a peer to peer review with the Plastic Manager by calling [employer] at [phone] and using order # [id number] as reference. ??The deadline for completion of the peer to peer is 14 calendar days. ?? Please let me know if you'd like to change the procedure to the recommended alternative, a CT Abdomen W contrast, and I will call [employer] and to get it changed and approved. ?? To cancel or reschedule the patient's scan, please contact the radiology dept at [facility]. Thank you, Laura Orozco Clinical Authorization Services documented in this encounter Plan of Treatment Upcoming Encounters Date Type Department Care Team (Late st Contact Info) Description 06/28/2024 9:30 AM EST Office Visit Internal Medicine at [facility] [address] [place] [phone] Daryn Garrett MD [facility] DR LILI [place] [address] 10/02/2024 1:00 PM EDT Office [place] [phone] Juanpablo Hernandez MD [facility] [place] [address] 01/30/2025 1:30 PM EDT Laboratory Appointment Lab at [facility] Hematology Oncology [address] [place] [phone] 01/30/2025 3:[address] [place] [phone] Arturo Cordero MD [facility] HEMATOLOGY AND [place]COLOGY [place], [place] [phone] 01/30/2025 4:15 PM EDT Office Visit Hematology [place] [address] Arturo Cordero MD [facility] [place] [address] Scheduled Procedures Name Priority Associated Diagnoses Date/Ti me EGD, UPPER GI ENDOSCOPY (WRV U 2.09) Irritable bowel syndrome with constipation COLONOSCOPY, DIAGNOSTIC (WRV U 3.26) Irritable bowel syndrome with constipation documented as of this encounter Visit Diagnoses Not on filedocumented in this encounter Care Teams Wood Box Maker Relationship Specialty Start Date End Date Luis E Narayan MD [facility] DR LILI [place] [address] PCP - General Family Medicine 03/26/19 01/19/22 documented as of this encounter
--- OUTSIDE RECORDS SUMMARY | 2024-06-07 13:40 | XMS_ITS | Encounter Summary ---
Author Organization [facility] [place] [address] Care Team Providers Care Will Call Clerk Name Role Phone Luis E Narayan MD Primary Care Provider Encounter Details Date Type Department Care Team (Late st Contact Info) Description 05/11/2020 Telephone Family Medicine at [facility] [address] [place] [phone] Thania Flores RN Social History Tobacco Use [...] EST Office Visit Internal Medicine at [address] [phone] Daryn Garrett MD [facility] DR LILI [place] [address] 10/02/2024 1:00 PM EDT Office [place] [address] Juanpablo Hernandez MD [facility] [place] [address] 01/30/2025 1:30 PM EDT Laboratory Appointment Lab at [facility] [place] [address] [place] [phone] 01/30/2025 3:[address] [place] [address] Arturo Cordero MD [facility] HEMATOLOGY [place] [address] 01/30/2025 4:15 PM EDT Office Visit Hematology [place] [address] Arturo Cordero MD [facility] DR HEMATOLOGY [place] [address] Scheduled Procedures Name Priority Associated Diagnoses Date/Ti me EGD, UPPER GI ENDOSCOPY (WRV U 2.09) Irritable bowel syndrome with constipation COLONOSCOPY, DIAGNOSTIC (WRV U 3.26) Irritable bowel syndrome with constipation documented as of this encounter Visit Diagnoses Not on filedocumented in this encounter Care Teams Will Call Clerk Relationship Specialty Start Date End Date Luis E Narayan MD [facility] DR LILI WALKER[place] [address] PCP - General Family Medicine 03/26/19 01/19/22 documented as of this encounter
--- OUTSIDE RECORDS SUMMARY | 2024-06-07 13:40 | XMS_ITS | Encounter Summary ---
Author Organization [facility] [place] [address] Care Team Providers Care Motor Bike Mechanic Name Role Phone Luis E Narayan MD Primary Care Provider [phone]- [phone] Reason for Visit * Consultation (Routine) - Closed Specialty Diagnoses / Procedures Referred By Gonzalez kumari Referred To Contact Ophthalmology Diagnoses amyloid pterygium os Moiz Ontiveros, OD [address] [place] [address] Juanpablo Hernandez MD [facility] [place] [address] Referral ID Status Reason Start Date Expiration Date V isits Requested Visits Authorized [id number] Closed Consult, Test & Treat PCP Updated and/or Approved 06/13/2019 06/12/2020 1 1 Encounter Details Date Type Department Care Team (Latest Contact Info) Description 03/31/2020 10:00 AM EDT Office [place] [address] Juanpablo Hernandez MD [facility] OPHTHALMOLOGY [place], [place] [phone] Diabetic polyneuropathy associated with type 2 diabetes [...] in this encounter Progress Notes * Juanpablo Henrandez MD - 03/31/2020 10:00 AM EDT Encounter [...] EST Office Visit Internal Medicine at [address] [address] Daryn Garrett MD [facility] DR LIL[place] [address] 10/02/2024 1:00 PM EDT Office [place] [phone] Juanpablo Hernandez MD [facility] [place] [address] 01/30/2025 1:30 PM EDT Laboratory Appointment Lab at [facility] Hematology Oncology [address] [place] [phone] 01/30/2025 3:[address] [place] [place] [phone] Arturo Cordero MD [facility] [place] [address] 01/30/2025 4:15 PM EDT Office Visit [place]ology [place] [address] Arturo Cordero MD [facility] [place] [address] Scheduled Procedures Name Priority Associated Diagnoses Date/Ti [...] left documented in this encounter Care Teams Motor Bike Mechanic Relationship Specialty Start Date End Date Luis E Narayan MD [facility] DR LILI [place] [address] PCP - General Family Medicine 03/26/19 01/19/22 documented as of this encounter
--- OUTSIDE RECORDS SUMMARY | 2024-06-07 13:40 | XMS_ITS | Encounter Summary ---
Author Organization [facility] [place] [address] Care Team Providers Care Medical Education Manager Name Role Phone Luis E Narayan MD Primary Care Provider Reason for Visit * Reason Comments Follow-up Encounter Details Date Type Department Care Team (Late st Contact Info) Description 12/23/2019 8:15 AM EDT [place] [address] Maurilio Spann MD [facility] [place] [address] Amy Aguiar MD [facility] [place] [address] Cognitive and behavioral changes Social History Tobacco [...] sentences. Patient states she was taken to [facility] and it was initially thought that she is having a clot in her body and thus underwent echocardiograms, ultrasounds of her lower extremities and all were negative. 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 She states her [...] uses inhalerswith good effect ??? 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 fluticasone propionate (FLONASE) 50 mcg/actuation [place], Suspension 1 spray by Each Nare route [...] and lateral aspects of feet Vibration via Zipidee tuning fork (1-8): reduced at big toes [...] Amy Aguiar MD Clinical Neurophysiology Fellow Pager: [phone] 12/23/2019 documented in this encounter Plan of Treatment Upcoming Encounters Date Type Department Care Team (Late st Contact Info) Description 06/28/2024 9:30 AM EST Office Visit Internal Medicine at [address] [place] [phone] Daryn Garrett MD [facility] DR LILI [place] [address] 10/02/2024 1:00 PM EDT Office [place] [phone] Juanpablo Hernandez MD [facility] [place] [address] 01/30/2025 1:30 PM EDT Laboratory Appointment Lab at [facility] Hematology Oncology [address] [place] [phone] 01/30/2025 3:[address] [place] [phone] Arturo Cordero MD [facility] [place]ATOLOG[place] [address] 01/30/2025 4:15 PM EDT Office Visit Hematology [place] [phone] Arturo Cordero MD [facility] DR HEMATOLOGY [place] [address] Scheduled Procedures Name Priority Associated Diagnoses Date/Ti me EGD, UPPER GI ENDOSCOPY (WRV U 2.09) Irritable bowel syndrome with constipation COLONOSCOPY, DIAGNOSTIC (WRV U 3.26) Irritable bowel syndrome with constipation documented as of this encounter Visit Diagnoses Diagnosis Cognitive and behavioral changes Other signs and symptoms involving cognition documented in this encounter Care Teams Medical Education Manager Relationship Specialty Start Date End Date Luis E Narayan MD [facility] DR LILI W[place] [address] PCP - General Family Medicine 03/26/19 01/19/22 documented as of this encounter
--- OUTSIDE RECORDS SUMMARY | 2024-06-07 13:40 | XMS_ITS | Encounter Summary ---
[place] [address] Care Team Providers Care Fundraising Director Name Role Phone Luis E Narayan MD Primary Care Provider Encounter Details Date Type Department Care Team (Late st Contact Info) Description 04/08/2020 [place] [address] Arlene Puente Social History Tobacco Use Types [...] AM EST Office Visit Internal Medicine at [facility] [address] [place] [phone] Daryn Garrett MD [facility] DR LILI [place] [address] 10/02/2024 1:00 PM EDT Office [place] [phone] Juanpablo Hernandez MD [facility] [place] [address] 01/30/2025 1:30 PM EDT Laboratory Appointment Lab at [facility] Hematology Oncology [address] [place] [phone] 01/30/2025 3:[address] [place] [phone] Arturo Cordero MD [facility] DR [place] [address] 01/30/2025 4:15 PM EDT Office Visit Hematology [place] [phone] Arturo Cordero MD [facility] DR [place] [address] Scheduled Procedures Name Priority Associated Diagnoses Date/Ti me EGD, UPPER GI ENDOSCOPY (WRV U 2.09) Irritable bowel syndrome with constipation COLONOSCOPY, DIAGNOSTIC (WRV U 3.26) Irritable bowel syndrome with constipation documented as of this encounter Visit Diagnoses Not on filedocumented in this encounter Care Teams Fundraising Director Relationship Specialty Start Date End Date Luis E Narayan MD [facility] DR LILI [place] [address] PCP - General Family Medicine 03/26/19 01/19/22 documented as of this encounter
--- OUTSIDE RECORDS SUMMARY | 2024-06-07 13:40 | XMS_ITS | Encounter Summary ---
Author Organization [facility] [place] [address] Care Team Providers Care Advertising Job Titles Name Role Phone Luis E Narayan MD Primary Care Provider Encounter Details Date Type Department Care Team (Late st Contact Info) Description 10/23/2019 [place] [address] [facility] [place] [address] Social History Tobacco Use Types Packs/Day Years [...] EST Office Visit Internal Medicine at [address] [place] [phone] Daryn Garrett MD [facility] DR LILI [place] [address] 10/02/2024 1:00 PM EDT Office [place] [phone] [facility] [place] [address] 01/30/2025 1:30 PM EDT Laboratory Appointment Lab at [facility] Hematology Oncology [address] [place] [phone] 01/30/2025 3:[address] [place] [phone] [facility] [place] [address] 01/30/2025 4:15 PM EDT Office Visit H[place]ology [place] [phone] [facility] [place] [address] Scheduled Procedures Name Priority Associated Diagnoses Date/Ti me EGD, UPPER GI ENDOSCOPY (WRV U 2.09) Irritable bowel syndrome with constipation COLONOSCOPY, DIAGNOSTIC (WRV U 3.26) Irritable bowel syndrome with constipation documented as of this encounter Visit Diagnoses Not on filedocumented in this encounter Care Teams Advertising Job Titles Relationship Specialty Start Date End Date Luis E Narayan MD [facility] DR LILI W[place] [address] PCP - General Family Medicine 03/26/19 01/19/22 documented as of this encounter
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
--- OUTSIDE RECORDS SUMMARY | 2024-06-07 13:40 | XMS_ITS | Encounter Summary ---
Author Organization [facility] [place] [address] Care Team Providers Care Heel Sewer Name Role Phone Luis E Narayan MD Primary Care Provider Reason for Referral * Diagnostic Test (Routine) - Closed Specialty Diagnoses / Procedures Referred By Gonzalez t Referred To Contact Radiology Diagnoses Renal cancer, left Procedures CT Abdomen wwo Contrast Avila Medina MD [facility] [address] [facility] [place] [address] Referral ID Status Reason Start Date Expiration Date V isits Requested Visits Authorized [id number] Closed Specialty Service Requested 12/30/2019 06/27/2020 1 1 Reason for Visit * Diagnostic Test (Routine) - Closed Specialty Diagnoses / Procedures Referred By Gonzalez kumari Referred To Contact Radiology Diagnoses Renal cancer, left Procedures CT Abdomen wwo Contrast Avila Medina MD [facility] [place] [address] [facility] [place] [address] Referral ID Status Reason Start Date Expiration Date V isits Requested Visits Authorized [id number] Closed Specialty Service Requested 12/30/2019 06/27/2020 1 1 Encounter Details Date Type Department Care Team (Latest Contact Info) Description 01/13/2020 10:45 AM EDT - 01/13/2020 11:59 PM EDT Hospital Encounter CT Scan at [facility] [place] [address] Avila Medina MD [facility] [place] [address] Renal cancer, left Discharge Disposition: Home Social [...] 08/05/2019 06/14/2021 fluticasone propionate (FLONASE) 50 mcg/actuation [place], Suspension 1 spray by Each Nare route [...] Medicine at [facility] [address] [place] [address] Daryn Garrett MD [facility] [address] LILI [place] [address] 10/02/2024 1:00 PM EDT Office [place] [address] Juanpablo Hernandez MD [facility] [place] [address] 01/30/2025 1:30 PM EDT Laboratory Appointment Lab at [facility] Hematology Oncology [address] [place] [address] 01/30/2025 3:[address] Scan at [place] [phone] Arturo Cordero MD [facility] DR [place] [address] 01/30/2025 4:15 PM EDT Office Visit Hematology [place] [phone] Arturo Cordero MD [facility] [address] [place] [address] Scheduled Procedures Name Priority Associated Diagnoses Date/Ti [...] this report, please contact the number below. vAila Medina MD IMG CT ORDERABLES documented in [...] mLs documented in this encounter Care Teams Heel Sewer Relationship Specialty Start Date End Date Luis E Narayan MD [facility] [place] [address] PCP - General Family Medicine 03/26/19 01/19/22 documented as of this encounter
--- OUTSIDE RECORDS SUMMARY | 2024-06-07 13:40 | XMS_ITS | Encounter Summary ---
Author Organization [facility] [place] [address] Care Team Providers Care Substation Engineer Name Role Phone Luis E Narayan MD Primary Care Provider Reason for Visit * Reason Onset Date Comments Triage 01/13/2020 Encounter Details Date Type Department Care Team (Late st Contact Info) Description 01/13/2020 Telephone Family Medicine at [facility] [address] [place] [address] Jeff Miller Triage Social History Tobacco Use [...] requesting return call to clinic. Will send [facility] message advising thesame. * Telephone Encounter - Holly Boucher RN - 01/13/2020 3:05 PM EDT Attempted to return call to patient. No answer; call went to unidentified VM. Left generic message requesting return call to clinic at [phone]. * Telephone Encounter - Milo Griffin MD - 01/13/2020 2:57 PM EDT How urgent is pt feeling on rx? Could wait until Sylvain visit vs I can refer to [facility] for possibly prompter eval given bipolar history Milo Griffin MD [facility] * Telephone Encounter - Alejandra Posadas RN [...] but she knows she can't do that shelter Pertinent History: FERCHO 08/05. Next 01/30. Hx [...] leave a message: yes Ok to send [facility] message: no Offered Appointment: yes, Patient requested next available with pcp. MA/Nurse/Carton Gluing Machine Operator contacted via: Message: yes Call: no Pager: no documented in this encounter Plan of Treatment Upcoming Encounters Date Type Department Care Team (Late st Contact Info) Description 06/28/2024 9:30 AM EST Office Visit Internal Medicine at [address] [address] Daryn Garrett MD [facility] [address] [address] 10/02/2024 1:00 PM EDT Office [place] [address] Juanpablo Hernandez MD [facility] [place] [address] 01/30/2025 1:30 PM EDT Laboratory Appointment Lab at [facility] Hematology Oncology [address] [place], [place] [phone] 01/30/2025 3:[address] Scan at [place] [phone] Arturo Cordero MD [facility] [place] [address] 01/30/2025 4:15 PM EDT Office Visit Hematology and Oncology at [place] [phone] Arturo Cordero MD [facility] [place] [address] Scheduled Procedures Name Priority Associated Diagnoses Date/Ti me EGD, UPPER GI ENDOSCOPY (WRV U 2.09) Irritable bowel syndrome with constipation COLONOSCOPY, DIAGNOSTIC (WRV U 3.26) Irritable bowel syndrome with constipation documented as of this encounter Visit Diagnoses Not on filedocumented in this encounter Care Teams Substation Engineer Relationship Specialty Start Date End Date Luis E Narayan MD [facility] [address] [place] [address] PCP - General Family Medicine 03/26/19 01/19/22 documented as of this encounter
--- OUTSIDE RECORDS SUMMARY | 2024-06-07 13:40 | XMS_ITS | Encounter Summary ---
Author Organization [facility] Address [facility] [place] [address] Care Team Providers Care Shovel Log Loader Operator Name Role Phone Luis E Narayan MD Primary Care Provider [phone] Reason for Visit * Reason Onset Date Comments Medication Refill 04/19/2020 Encounter Details Date Type Department Care Team (Late st Contact Info) Description 04/19/2020 Refill Family Medicine at [facility] [address] [place] [phone] Bonny Emanuel MD [address] [place] [address] Social History Tobacco Use Types Packs/Day Years [...] Office Visit Internal Medicine at [facility] [address] [place] [address] Daryn Garrett MD [facility] [address] LILI [place] [address] 10/02/2024 1:00 PM EDT Office [place] [address] Juanpablo Hernandez MD [facility] [place] [address] 01/30/2025 1:30 PM EDT Laboratory Appointment Lab at [facility] Hematology Oncology [address] [place] [phone] 01/30/2025 3:[address] [place] [address] Arturo Cordero MD [facility] DR [place] [address] 01/30/2025 4:15 PM EDT Office Visit Hematology [place] [address] Arturo Cordero MD [facility] DR [place] [address] Scheduled Procedures Name Priority Associated Diagnoses Date/Ti me EGD, UPPER GI ENDOSCOPY (WRV U 2.09) Irritable bowel syndrome with constipation COLONOSCOPY, DIAGNOSTIC (WRV U 3.26) Irritable bowel syndrome with constipation documented as of this encounter Visit Diagnoses Not on filedocumented in this encounter Care Teams Shovel Log Loader Operator Relationship Specialty Start Date End Date Luis E Narayan MD [facility] [address] [place] [address] PCP - General Family Medicine 03/26/19 01/19/22 documented as of this encounter
--- OUTSIDE RECORDS SUMMARY | 2024-06-07 13:40 | XMS_ITS | Encounter Summary ---
Author Organization [facility] Address [facility] [place] [address] Care Team Providers Care Janitor And Cleaner Name Role Phone Luis E Narayan MD Primary Care Provider Encounter Details Date Type Department Care Team (Late st Contact Info) Description 01/13/2020 1:00 PM EDT [place] [address] Avila Medina MD [facility] [place] [address] Malignant neoplasm of kidney, unspecified laterality; Adrenal [...] Left robot assited partial nephrectomy for a [id number] Grade 3 clear cell cancer. All surgical [...] Diagnosis Code ??? Coronary artery disease involving [place] coronary artery of [place]ongo heart with angina pectoris I25.119 ??? Altered [...] adenoma unchanged from prior imaging 03/19/2019. Imp: [id number] Grade 3 Clear Cell renal cancer sp [...] [facility] [address] [place] [address] Daryn Garrett MD [facility] DR LIL[address] [place] [address] 10/02/2024 1:00 PM EDT [place] [address] Juanpablo Hernandez MD [facility] [place] [address] 01/30/2025 1:30 PM EDT Laboratory Appointment Lab at [facility] [place] Oncology [address] [place] [address] 01/30/2025 3:[address] Scan at [place] [phone] Arturo Cordero MD [facility] [place] [address] 01/30/2025 4:15 PM EDT Office Visit Hematology and Oncology at [address] Arturo Cordero MD [facility] [address] [place] [address] Scheduled Procedures Name Priority Associated Diagnoses Date/Ti [...] unspecified documented in this encounter Care Teams Janitor And Cleaner Relationship Specialty Start Date End Date Luis E Narayan MD [facility] DR [address]IL[address] [place] [address] PCP - General Family Medicine 03/26/19 01/19/22 documented as of this encounter
--- OUTSIDE RECORDS SUMMARY | 2024-06-07 13:41 | XMS_ITS | Encounter Summary ---
Author Organization [facility] [place] [address] Care Team Providers Care Seamer Operator Name Role Phone Luis E Narayan MD Primary Care Provider [phone] Reason for Referral * Diagnostic Test (Routine) - Closed Specialty Diagnoses / Procedures Referred By Gonzalez kumari Referred To Contact Radiology Diagnoses Renal cancer, left Procedures CT Abdomen wwo Contrast Josseline Machado MD [facility] [place] [address] [facility] [place] [address] Referral ID Status Reason Start Date Expiration Date V isits Requested Visits Authorized [id number] Closed Specialty Service Requested 12/30/2019 06/27/2020 1 1 Reason for Visit * Reason Comments Follow-up Encounter Details Date Type Department Care Team (Late st Contact Info) Description 07/17/2019 10:20 AM EST Office [place] [address] Josseline Machado MD [facility] [place] [address] Renal cancer, left (Primary Dx) [...] Left robot assited partial nephrectomy for a [id number] Grade 3 clear cell cancer. All surgical margins were negative. Warm ischemia time was 16 minutes 45 seconds. 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 - Margins negative for carcinoma. - See synoptic report for additional details and staging. Page 1 of 2 Name: ALIZE MANJARREZ Report ID: [id number] The signing pathologist has (i) examined the relevant preparation(s) for the specimen(s); and rendered or confirmed the diagnosis(es). Pathology Report Collected: 06/28/2019 12:57 Received: 06/28/2019 13:20 DIAGNOSIS Electronically signed by: Christine Pierce MD Verified: 07/04/2019 Pathologist Performed at: -[facility] Dept. of Pathology, [place], [place] Following the surgery she did well [...] Cr 0.84, eGFR 76 Xrays: None Imp: [id number] Grade 3 Clear Cell renal cancer sp [...] EST Office Visit Internal Medicine at [address] [address] Daryn Garrett MD [facility] DR LILI WALKER [place] [address] 10/02/2024 1:00 PM EDT Office [place] [phone] Juanpablo Hernandez MD [facility] [place] [address] 01/30/2025 1:30 PM EDT Laboratory Appointment Lab at [facility] Hematology Oncology [address] [place] [phone] 01/30/2025 3:[address] [place] [address] Arturo Cordero MD [facility] DR HEMATOLOGY [place] [address] 01/30/2025 4:15 PM EDT Office Visit Hematology [place] [address] Arturo Cordero MD [facility] DR HEMATOLOGY [place] [address] Scheduled Orders Name Type Priority Associated Diagnoses Orde r Schedule Comprehensive metabolic panel (non-fasting) Lab STAT Renal cancer, left Expected: 01/13/2020 (Approximate), Expires: 07/16/2020 Scheduled Procedures Name Priority Associated Diagnoses Date/Ti [...] left documented in this encounter Care Teams Seamer Operator Relationship Specialty Start Date End Date Luis E Narayan MD [facility] DR [address] [address] PCP - General Family Medicine 03/26/19 01/19/22 documented as of this encounter
--- OUTSIDE RECORDS SUMMARY | 2024-06-07 13:41 | XMS_ITS | Encounter Summary ---
Author Organization [facility] Address [facility] [place] [address] Care Team Providers Care Bundle Tier Name Role Phone Luis E Narayan MD Primary Care Provider Encounter Details Date Type Department Care Team (Latest Contact Info) Description 06/27/2019 1:06 PM EST - 06/27/2019 11:59 PM [facility] Hospital Encounter XRay at [address] [place] [address] Avila Medina MD [facility] [place] [address] Renal mass Discharge Disposition: Home Social History [...] 04/09/2019 06/22/2020 fluticasone propionate (FLONASE) 50 mcg/actuation [place], Suspension 50 sprays by Each Nare route [...] Medicine at [facility] [address] [place] [phone] Daryn Garrett MD [facility] [address] LIL[address] [place] [address] 10/02/2024 1:00 PM EDT Office [place] [phone] Juanpablo Hernandez MD [facility] [place] [address] 01/30/2025 1:30 PM EDT Laboratory Appointment Lab at [facility] Hematology Oncology [address] [place] [phone] 01/30/2025 3:[address] [place] [phone] Arturo Cordero MD [facility] [place] [address] 01/30/2025 4:15 PM EDT Office Visit Hematology [place] [phone] Arturo Cordero MD [facility] [place] [address] Scheduled Procedures Name Priority Associated Diagnoses Date/Ti [...] ureter documented in this encounter Care Teams Bundle Tier Relationship Specialty Start Date End Date Luis E Narayan MD [facility] [address] [place] [address] PCP - General Family Medicine 03/26/19 01/19/22 documented as of this encounter
--- OUTSIDE RECORDS SUMMARY | 2024-06-07 13:41 | XMS_ITS | Encounter Summary ---
Author Organization [facility] [place] [address] Care Team Providers Care Drywall Finishing Foreman Name Role Phone Luis E Narayan MD Primary Care Provider [phone] Reason for Visit * Auth/Cert Specialty Diagnoses / Procedures Referred By Gonzalez t Referred To Contact Diagnoses Renal Mass Procedures PRO LAP, PARTIAL NEPHRECTOMY LAPAROSCOPY, PARTIAL NEPHRECTOMY, ROBOTIC ASSIST (WRVU 27.41) MODIFIER ROBOT,DAVINCI XI Referral ID Status Reason Start Date Expiration Date Visits Re quested Visits Authorized [id number] 1 1 Encounter Details Date Type Department Care Team (Late st Contact Info) Description 06/28/2019 8:34 AM EST Anesthesia Event [place] [phone] Nathan Schmidt MD [facility] [place] [address] Anesthesia Record Procedure Summary Procedure Name Responsible [...] Lumen metacarpal vein (top of hand), right; kvaw-bmn-crodmd catheter system; 18 gauge; Nathan Schmidt MD; ([place]); 06/29/19; 182306/28/19 1102 by 06/29/19 1824 by Carlota Rocha, VEDA (RETIRED) Peripheral IV Line - Single Lumen 06/28/19; 0807; median cubital vein (antecubital fossa), left; slnk-agz-cmqqxm catheter system; 20 gauge; Gerson Boston RN; [...] Christine Wu RN Arterial Line 06/28/19; 1018; [facility] hial artery, left; 20 gauge; Nathan [...] Procedure Summary Date: 06/28/19 Room / Location: [facility] MAIN OR Anesthesia Start: 833 Anesthesia Stop: 135 Procedures: LAPAROSCOPY, PARTIAL NEPHRECTOMY, ROBOTIC ASSIST (WRVU 27.41) (Left Flank) MODIFIER ROBOT,DAVINCI XI (N/A ) Diagnosis: Renal mass (renal mass) Surgeon: Avila Medina MD Responsible Provider: Nathan Schmidt MD Anesthesia Type: general ASA Status: 3 All Anesthesia Providers: Anesthesiologist: Nathan Schmidt MD Airway Traffic Controller: Joni Jane MD Vitals Value Taken Time BP 118/57 06/28/2019 1:51 PM Temp Pulse 68 06/28/2019 2:00 PM Resp 22 06/28/2019 2:00 PM SpO2 99 % 06/28/2019 2:00 PM Pain Level Vitals shown include unvalidated device data. Patient Location: PACU/[facility] Level of Consciousness: Conscious but [...] and mask, cap, sterile gloves, hand hygeine I-qgtje-jfrck 21 10 cm Ultrasound Guided: YES and [...] Bipolar affective disorder in remission Diagnosis in [facility] records, unconfirmed ??? Anxiety ??? Depressive disorder [...] TSH, etc. ??? Coronary artery disease involving blackfeet coronary artery of blackfeet heart with angina pectoris History of angina [...] uses inhalerswith good effect ??? Atherosclerosis of blackfeet coronary artery of blackfeet heart with angina pectoris 10/09/2007 History of [...] on CPAP, depression/anxiety/bipolar, HLD, HTN, CAD s/p [place] and 4 stents to LCx in 10/2007, [...] AM EST Office Visit Internal Medicine at [address] [phone] Daryn Garrett MD [facility] [place] [address] 10/02/2024 1:00 PM EDT Office [place] [phone] Juanpablo Hernandez MD [facility] [place] [address] 01/30/2025 1:30 PM EDT Laboratory Appointment [place] [facility] [place] [address] [place] [phone] 01/30/2025 3:[address] [place] [phone] Arturo Cordero MD [facility] [place] [address] 01/30/2025 4:15 PM EDT Office Visit Hematology [place] [phone] Arturo Cordero MD [facility] [place] [address] Scheduled Procedures Name Priority Associated Diagnoses Date/Ti [...] and mask, cap, sterile gloves, hand hygeine R-iaemq-zgsja 21 10 cm Ultrasound Guided: ??YES and [...] tolerated procedure without issue. Jak Crystal MD SUPPLY ROOM CLERK [facility] documented in this encounter Visit Diagnoses Not on filedocumented in this encounter Administered Medications Inactive Administered Medications - up to 3 most recent administrations Medication Order MAR Action Action Date Dose Rate Site cefTRIAXone (ROCEPHIN) 2 g vial attach to sodium chloride 0.9% 50 mL Mini-Bag Plus 2 g, Intravenous, LEDGER POSTER TO O.R., 1 dose, On Mon06/28/19 at [...] subcutaneous injection 5,000 Units 5,000 Units, Subcutaneous, LEDGER POSTER TO O.R., 1 dose, On Mon06/28/19 at [...] mLs documented in this encounter Care Teams Drywall Finishing Foreman Relationship Specialty Start Date End Date Luis E Narayan MD [facility] [place] [address] PCP - General Family Medicine 03/26/19 01/19/22 documented as of this encounter
--- OUTSIDE RECORDS SUMMARY | 2024-06-07 13:41 | XMS_ITS | Encounter Summary ---
Author Organization Formerly [facility], [facility] [place] [address] Care Team Providers Care Science Technician Name Role Phone Luis E Narayan MD Primary Care Provider Reason for Visit * Auth/Cert Specialty Diagnoses / Procedures Referred By Gonzalez kumari Referred To Contact Diagnoses Renal Mass Procedures PRO LAP, PARTIAL NEPHRECTOMY LAPAROSCOPY, PARTIAL NEPHRECTOMY, ROBOTIC ASSIST (WRVU 27.41) MODIFIER ROBOT,DAVINCI XI Referral ID Status Reason Start Date Expiration Date Visits Re quested Visits Authorized [id number] 1 1 Encounter Details Date Type Department Care Team (Latest Contact Info) Description 06/28/2019 7:02 AM EST - 07/01/2019 4:46 PM [facility] Hospital Encounter [address] [place] [address] Avila Medina MD [facility] [place] [address] Renal mass, left Discharge Disposition: Home Social [...] Hospital Course: Alize Gramajo was admitted to [facility] on 06/28/2019 through the Same Day Surgery [...] that part of your care. Urology Clinic: [phone] PCP: Luis E Narayan MD, . Please follow-up with your PCP in 1-2 weeks or sooner as needed. Scheduled Appointments: The following appointments have been scheduled on your behalf: Future Appointments and Orders Future Appointments and Orders Future Appointments Provider Department Dept Phone 07/09/2019 2:30 PM [facility] Neurodiagnostic at [facility] Arrive at: [facility] [phone] 07/17/2019 9:20 AM LAB, THREE L Lab 3L [facility] Arrive at: [facility] 07/17/2019 10:20 AM Avila Medina MD Urology at [facility] Arrive at: [facility] 5B [phone] 07/22/2019 1:00 PM Luis E Narayan MD Primary Care at [facility] Arrive at: [facility] [address] [place] [phone] 08/05/2019 1:45 PM Amy Aguiar MD Neurology at [facility] Arrive at: [facility] [phone] 08/13/2019 7:30 PM SLEEP, PHYSICIAN Sleep Center at [facility] Arrive at: [facility] [address] [place] [phone] Future Orders Complete By Expires Basic Metabolic [...] 07/09/2019 2:30 PM C-ELECTRONEURO, DIAGNOSTICS Neurodiagnostic at [facility] Arrive at: [facility] [phone] 07/17/2019 9:20 AM LAB, THREE L Lab [address] [place] [address] Arrive at: [facility] [phone] 07/17/2019 10:20 AM Avila Medina MD Urology at [facility] Arrive at: [facility] [phone] 07/22/2019 1:00 PM Luis E Narayan MD Primary Care at [facility] Arrive at: [facility] [address] [facility] [phone] 08/05/2019 1:45 PM Amy Aguiar MD Neurology at [facility] Arrive at: [facility] [phone] 08/13/2019 7:30 PM SLEEP, PHYSICIAN Sleep Center at [facility] Arrive at: [facility] [address] [place] [phone] Future Orders Complete By Expires Basic Metabolic [...] managed by the Urologic Surgery Team at [facility]. If you have any questions or concerns, please feel free to contact us. Provider Contact Information: Urology Clinic: [phone] [facility] (after business hours): CC: Luis E Narayan [...] 07/09/2019 2:30 PM C-ELECTRONEURO, DIAGNOSTICS Neurodiagnostic at [facility] Arrive at: [facility] 3C [phone] 07/17/2019 9:20 AM LAB, THREE L Lab 3[facility] Arrive at: [facility] 3L [phone] 07/17/2019 10:20 AM Avila Medina MD Urology at [facility] Arrive at: [facility] 5B [phone] 07/22/2019 1:00 PM Luis E Narayan MD Primary Care at [facility] Arrive at: [facility] [address] [facility] [phone] 08/05/2019 1:45 PM Amy Aguiar MD Neurology at [facility] Arrive at: [facility] [phone] 08/13/2019 7:30 PM SLEEP, PHYSICIAN Sleep Center at [facility] Arrive at: [facility] [place] [phone] Future Orders Complete By Expires Basic Metabolic [...] 04/09/2019 06/22/2020 fluticasone propionate (FLONASE) 50 mcg/actuation [place], Suspension 50 sprays by Each Nare route [...] patient. Please page the Regional Anesthesia Team ([phone]) with any questions or concerns. ?? Continue current management per primary service. ?? Thank you for the opportunity to have participated in the care of this patient. Julissa Morris MD Regional Team pager [phone] * Camilla Carrera - 06/30/2019 12:02 PM EST Urology Inpatient Progress Note ID: Alize Gramajo is a 58 y.o. female with history of ASCVD (CT with Stent 2007, on plavix), DM2, HTN, [...] rosario food. Resident paged - redirected this gag writer to someone else on urology team. [...] spec had hemolyzed/ Lab contacted by this gag writer at 2145 and new specimen has [...] 58 y.o. female with history of ASCVD (CT with Stent 2007, on plavix), DM2, HTN, [...] Alize Gramajo 58 y.o. female with ASCVD (CT w/ stents 11 years ago, on Plavix), DMII, HTN, Neuropathy, LUTS, with left cystic renal mass suspicious (Bosniak 3- 4) for a [id number] renal cancer who presents with robotic-assisted left [...] 4 ??? fluticasone propionate (FLONASE) 50 mcg/actuation [place], Suspension 50 sprays by Each Nare route [...] Medina MD - 07/01/2019 3:45 PM EST [facility] Operative Note Patient Name: Alize Gramajo : [id number] MR#: [id number] Case Date: 06/28/2019 Surgeon: Surgeon(s) and Role: * Avila Medina MD - Primary * Juanpablo Helm MD - Resident Registered Nurse Field Irrigation Worker: Felisha Sher RN Preoperative diagnosis: renal [...] Info Order Time SPECIMEN TO PATHOLOGY [id number] [id number] renal mass Left renal mass and fat [...] additional robotic ports were placed and an nurse assistant port, air seal was placed. Using [...] Admission order reviewed. Primary Insurance on file: [employer] [facility] Secondary Insurance on file: N/A Primary care provider on file: Luis E Narayan MD [phone] Advance Directive on file and Code Status: <no information>, Full Code Patient???s Functional Status: Independent using front wheel walker Living Situation: Home with support of family and friends [address] [facility] [address] Supports:Family and friends Assessment: Patient with no apparent RNCM/SW needs at this time. No housing, transportation, insurance, resources concerns identified at this time. Supports in place to achieve a safe post-hospital transition. No identified barriers to accessing necessary care and/or follow-up after discharge. Plan: Patient to d/c to Home via car when medically ready. coal shoveler/Parts Fabricator will continue to follow patient???s progress and remain available if situation changes for coordination of care, psychosocial support and/or discharge planning. Rani Emanuel RN Pager [phone] Extension [phone] * Plan of Care - Allison Sánchez [...] meal coverage, correction doses administered/or held per [facility] order parameters in place. HR regular, lung [...] Operative Note Patient Name: Alizereinaldo Gramajo : [id number] MR#: [id number] Case Date: 06/28/2019 Surgeon: Surgeon(s) and Role: [...] Info Order Time SPECIMEN TO PATHOLOGY [id number] renal mass Left renal mass and fat [...] EST Office Visit Internal Medicine at [address] [phone] Daryn Garrett MD [facility] [address] [facility] [place] [address] 10/02/2024 1:00 PM EDT Office [place] [phone] Juanpablo Hernandez MD [facility] [place] [address] 01/30/2025 1:30 PM EDT Laboratory Appointment Lab at [facility] Hematology Oncology [address] [place] [phone] 01/30/2025 3:[address] [place] [phone] Arturo Cordero MD [facility] [place] [address] 01/30/2025 4:15 PM EDT Office Visit Hematology and Oncology at [facility] [place] [address] Arturo Cordero MD [facility] HEMATOLOGY [place] [address] Scheduled Procedures Name Priority Associated Diagnoses Date/Ti [...] AM EST Renal mass Lap, Partial Nephrectomy (46941) 06/28/2019 8:39 AM EST Renal mass POCT GLUCOSE Routine 06/28/2019 8:17 AM EST documented in this encounter Results * Basic Metabolic Panel (non-fasting) (07/17/2019 9:47 AM EST) Glucose 131 65 - 199 mg/dL [facility] Comment:Diabetes: >=200 mg/d L plus symptoms Blood Urea Nitrogen 17 8 - 18 mg/dL [facility] Creatinine 0.84 0.70 - 1.20 mg/dL [facility] Sodium 140 135 - 145 mmol/L [facility] Potassium 4.5 3.5 - 5.0 mmol/L [facility] Comment: Please note: ??Patients with WBC >100,000 may have falsely elevated Potassium levels. ??For accurate Potassium quantification in these patients send serum separator tube (gold top) for subsequent determinations. ??Contact the Clinical Chemistry Laboratory if there are any questions. Chloride 102 98 - 107 mmol/L [facility] Carbon Dioxide 28 22 - 31 mmol/L [facility] Anion Gap 10 5 - 15 mmol/L [facility] Calcium 10.1 8.5 - 10.5 mg/dL [facility] Est Glomerular Filtration Rate 76 >=60 mL/min/1. 73 m?? [facility] Comment: The eGFR was calculated using the CKD-EPI equation. As with all creatinine based estimates of kidney function, eGFR values calculated with the CKD-EPI equation are not accurate in patients with acute kidney failure, extremes of body mass or the acutely ill. [email or web address] eGFR 88 >=60 mL/min/1. 73 m?? [facility] Comment: The eGFR was calculated using the CKD-EPI equation. As with all creatinine based estimates of kidney function, eGFR values calculated with the CKD-EPI equation are not accurate in patients with acute kidney failure, extremes of body mass or the acutely ill. [email or web address] Blood specimen (specimen) 07/17/2019 9:47 AM EST 07/17/2019 9:56 AM EST Narrative Resulting Agency Comment Spec In Lab Avila Medina MD CHEMISTRY ORDERABLES [facility] [place] [address] * POCT Glucose (07/01/2019 12:01 PM EST) Glucose, POC 124 65 - 199 mg/dL [facility] Comment: Supplemental ranges: <140 mg/dL before meals <180 mg/dL all other times of the day Blood specimen (specimen) 07/01/2019 12:01 PM EST 07/01/2019 12:01 PM EST Avila Median MD POINT OF CARE TEST O RDERABLES Performing Organization Address City/[facility]/ZIP Co de Phone Number [facility] [place] [address] * POCT Glucose (07/01/2019 7:28 AM EST) Glucose, POC 123 65 - 199 mg/dL [facility] Comment: Supplemental ranges: <140 mg/dL before meals <180 mg/dL all other times of the day Blood specimen (specimen) 07/01/2019 7:28 AM EST 07/01/2019 7:28 AM EST Avila Medina MD POINT OF CARE TEST O ULISES Performing Organization Address [facility]/ZIP Co de Phone Number [facility] [place] [address] * POCT Glucose (06/30/2019 7:41 PM EST) Glucose, POC 120 65 - 199 mg/dL [facility] Comment: Supplemental ranges: <140 mg/dL before meals <180 mg/dL all other times of the day Blood specimen (specimen) 06/30/2019 7:41 PM EST 06/30/2019 7:41 PM EST Avila Medina MD POINT OF CARE TEST O RDERACELY Performing Organization Address City/[facility]/ZIP Co de Phone Number [facility] [place] [address] * POCT Glucose (06/30/2019 3:15 PM EST) Glucose, POC 131 65 - 199 mg/dL [facility] Comment: Supplemental ranges: <140 mg/dL before meals <180 mg/dL all other times of the day Blood specimen (specimen) 06/30/2019 3:15 PM EST 06/30/2019 3:15 PM EST Avila Medina MD POINT OF CARE TEST O ULISES Performing Organization Address [facility]/[place] Co de Phone Number [facility] [place] [address] * POCT Glucose (06/30/2019 11:52 AM EST) Glucose, POC 146 65 - 199 mg/dL [facility] Comment: Supplemental ranges: <140 mg/dL before meals <180 mg/dL all other times of the day Blood specimen (specimen) 06/30/2019 11:52 AM EST 06/30/2019 11:52 AM EST Avila Medina MD POINT OF CARE TEST O ULISES Performing Organization Address [facility]/[place] Co de Phone Number [facility] [place] [address] * POCT Glucose (06/30/2019 7:48 AM EST) Glucose, POC 131 65 - 199 mg/dL [facility] Comment: Supplemental ranges: <140 mg/dL before meals <180 mg/dL all other times of the day Blood specimen (specimen) 06/30/2019 7:48 AM EST 06/30/2019 7:48 AM EST Avila Medina MD POINT OF CARE TEST O DENISEERACELY Performing Organization Address [facility]/[place] Co de Phone Number [facility] [place] [address] * POCT Glucose (06/30/2019 3:26 AM EST) Glucose, POC 124 65 - 199 mg/dL [facility] Comment: Supplemental ranges: <140 mg/dL before meals <180 mg/dL all other times of the day Blood specimen (specimen) 06/30/2019 3:26 AM EST 06/30/2019 3:26 AM EST Avila Medina MD POINT OF CARE TEST O ULISES Performing Organization Address [facility]/[place] Co de Phone Number [facility] [place] [address] * POCT Glucose (06/29/2019 11:36 PM EST) Glucose, POC 153 65 - 199 mg/dL [facility] Comment: Supplemental ranges: <140 mg/dL before meals <180 mg/dL all other times of the day Blood specimen (specimen) 06/29/2019 11:36 PM EST 06/29/2019 11:36 PM EST Avila Medina MD POINT OF CARE TEST Junior MONTGOMERY Performing Organization Address [facility]/[place] Co de Phone Number [facility] [place] [address] * POCT Glucose (06/29/2019 3:36 PM EST) Glucose, POC 177 65 - 199 mg/dL [facility] Comment: Supplemental ranges: <140 mg/dL before meals <180 mg/dL all other times of the day Blood specimen (specimen) 06/29/2019 3:36 PM EST 06/29/2019 3:36 PM EST Avila Medina MD POINT OF CARE TEST O ULISES Performing Organization Address [facility]/[place] Co de Phone Number [facility] [place] [address] * POCT Glucose (06/29/2019 12:03 PM EST) Glucose, POC 138 65 - 199 mg/dL [facility] Comment: Supplemental ranges: <140 mg/dL before meals <180 mg/dL all other times of the day Blood specimen (specimen) 06/29/2019 12:03 PM EST 06/29/2019 12:03 PM EST Avila Medina MD POINT OF CARE TEST O RDERABLES Performing Organization Address [facility] de Phone Number [facility] [place] [address] * Creatinine Level Body Fluid YANDY Drain (06/29/2019 10:29 AM EST) Creatinine, Fluid 0.8 mg/dL [facility] Comment: No reference range is available for the specimen type submitted. ??The performance of this assay for the submitted type has not been validated and results should be interpreted accordingly and with regard to the patient's clinical status. Creat, Fld Type YANDY Drain [facility] YANDY Drain 06/29/2019 10:2 9 AM EST 06/29/2019 11:00 AM EST Narrative Resulting Agency Comment Spec In Lab Avila Medina MD BODY FLUIDS AND STOO LS ORDERABLES Performing Organization Address [facility] de Phone Number [facility] [place] [address] * POCT Glucose (06/29/2019 6:53 AM EST) Pathologist [facility] Glucose, POC 129 65 - 199 mg/dL [facility] Comment: Supplemental ranges: <140 mg/dL before meals <180 mg/dL all other times of the day Blood specimen (specimen) 06/29/2019 6:53 AM EST 06/29/2019 6:53 AM EST Avila Medina MD POINT OF CARE TEST O RDERABLES Performing Organization Address [facility]/[place] Co de Phone Number [facility] [place] [address] * (ABNORMAL) Differential, Automated (06/29/2019 2:57 AM EST) Neutrophil % 73.6 % [facility] Neutrophil Absolute 7.96(H) 1.70 - 6.10 x10(3)/mc L [facility] Lymph % 15.1 % [facility] Lymphocytes Abs 1.6 0.9 - 3.2 x10(3)/[facility] Monocyte % 9.2 % [facility] Monocyte Abs 1.0(H) 0.3 - 0.9 x10(3)/[facility] Eos % 1.2 % [facility] Eosinophils Abs 0.1 0.0 - 0.4 x10(3)/[facility] Basophil % 0.4 % [facility] Baso Absolute 0.0 0.0 - 0.1 x10(3)/[facility] Immature Gran % 0.50 % [facility] Comment: Immature granulocytes(IG's)percentage and absolute count will include metamyelocytes, myelocytes, and promyelocytes. Blood smears from CBCs yielding IG's will be scanned manually for concordance. If this scan disagrees with the automated IG or if promyelocytes are noted, a manual differential will be performed. Immature Gran Absolute 0.05(H) 0.00 - 0.04 x10(3)/[facility] Blood specimen (specimen) 06/29/2019 2:57 AM EST 06/29/2019 3:03 AM EST Narrative Resulting Agency Comment Spec In Lab Camilla Carrera MD HEMATOLOGY ORDERABLE S [facility] [place] [address] * (ABNORMAL) Hemogram (06/29/2019 2:57 AM EST) White Blood Cell 10.8(H) 4.0 - 9.5 x10(3)/[facility] Red Blood Cell 4.17 4.00 - 5.21 x10(6)/[facility] Hemoglobin 11.9 11.7 - 15.5 gm/dL [facility] Hematocrit 37.3 35.7 - 45.8 % [facility] Mean Cell Volume 89.4 82.6 - 94.4 fL [facility] Mean Cell Hemoglobin 28.5 27.1 - 32.0 pg [facility] Mean Cell Hemoglobin Concentration 31.9 31.7 - 35.0 gm/dL [facility] Platelet 277 145 - 357 x10(3)/mc L [facility] RDW Standard Deviation 47.2(H) 37.0 - 46.0 fL [facility] RDW coefficient of variation 14.4(H) 11.5 - 14.1 % [facility] Mean Platelet Volume 9.4 7.6 - 12.9 fL [facility] NRBC% auto 0.0 % [facility] NRBC Absolute 0.000 0.000 - 0.000 x10(3)/mc L [facility] Blood specimen (specimen) 06/29/2019 2:57 AM EST 06/29/2019 3:03 AM EST Narrative Resulting Agency Comment Spec In Lab Camilla Carrera MD HEMATOLOGY ORDERABLE S [facility] [place] [address] * (ABNORMAL) BMP w/fasting Glucose (06/29/2019 2:57 AM EST) Glucose Fasting 116(H) 65 - 99 mg/dL [facility] Comment: ?Fasting* Glucose Interpretive Criteria [...] of Diabetes Mellitus, Position Statement from the [employer]. ??Diabetes Care, Volume 33, Supplement 1, Jul 2009 Blood Urea Nitrogen 10 8 - 18 mg/dL [facility] Creatinine 0.82 0.70 - 1.20 mg/dL [facility] Sodium 144 135 - 145 mmol/L [facility] Potassium 4.2 3.5 - 5.0 mmol/L [facility] Comment: Please note: ??Patients with WBC >100,000 may have falsely elevated Potassium levels. ??For accurate Potassium quantification in these patients send serum separator tube (gold top) for subsequent determinations. ??Contact the Clinical Chemistry Laboratory if there are any questions. Chloride 107 98 - 107 mmol/L [facility] Carbon Dioxide 26 22 - 31 mmol/L [facility] Anion Gap 11 5 - 15 mmol/L [facility] Calcium 8.9 8.5 - 10.5 mg/dL [facility] Est Glomerular Filtration Rate 78 >=60 mL/min/1. 73 m?? [facility] Comment: The eGFR was calculated using the CKD-EPI equation. As with all creatinine based estimates of kidney function, eGFR values calculated with the CKD-EPI equation are not accurate in patients with acute kidney failure, extremes of body mass or the acutely ill. [email or web address] eGFR 91 >=60 mL/min/1. 73 m?? [facility] Comment: The eGFR was calculated using the CKD-EPI equation. As with all creatinine based estimates of kidney function, eGFR values calculated with the CKD-EPI equation are not accurate in patients with acute kidney failure, extremes of body mass or the acutely ill. [email or web address] Blood specimen (specimen) 06/29/2019 2:57 AM EST 06/29/2019 3:03 AM EST Narrative Resulting Agency Comment Spec In Lab Avila Medina MD CHEMISTRY ORDERABLES [facility] [place] [address] * POCT Glucose (06/28/2019 9:57 PM EST) Glucose, POC 148 65 - 199 mg/dL [facility] Comment: Supplemental ranges: <140 mg/dL before meals <180 mg/dL all other times of the day Blood specimen (specimen) 06/28/2019 9:57 PM EST 06/28/2019 9:57 PM EST Avila Medina MD POINT OF CARE TEST O RDERABLES Performing Organization Address [facility] de Phone Number [facility] [place] [address] * Creatinine Level Body Fluid YANDY Drain (06/28/2019 9:49 PM EST) Creatinine, Fluid 1.0 mg/dL [facility] Comment: No reference range is available for the specimen type submitted. ??The performance of this assay for the submitted type has not been validated and results should be interpreted accordingly and with regard to the patient's clinical status. Creat, Fld Type YANDY Drain [facility] YANDY Drain 06/28/2019 9:49 PM EST 06/28/2019 10:09 PM EST Narrative Resulting Agency Comment Spec In Lab Avila Medina MD BODY FLUIDS AND STOO LS ORDERABLES Performing Organization Address [facility] de Phone Number [facility] [place] [address] * POCT Glucose (06/28/2019 4:13 PM EST) Glucose, POC 116 65 - 199 mg/dL [facility] Comment: Supplemental ranges: <140 mg/dL before meals <180 mg/dL all other times of the day Blood specimen (specimen) 06/28/2019 4:13 PM EST 06/28/2019 4:13 PM EST Avila Medina MD POINT OF CARE TEST O RDERABLES [facility] [place] [address] * (ABNORMAL) BMP w/fasting Glucose (06/28/2019 2:30 PM EST) Glucose Fasting 147(H) 65 - 99 mg/dL [facility] Comment: ?Fasting* Glucose Interpretive Criteria [...] of Diabetes Mellitus, Position Statement from the [employer]. ??Diabetes Care, Volume 33, Supplement 1, Jul 2009 Blood Urea Nitrogen 10 8 - 18 mg/dL [facility] Creatinine 0.80 0.70 - 1.20 mg/dL [facility] Sodium 144 135 - 145 mmol/L [facility] Potassium 4.3 3.5 - 5.0 mmol/L [facility] Comment: Please note: ??Patients with WBC >100,000 may have falsely elevated Potassium levels. ??For accurate Potassium quantification in these patients send serum separator tube (gold top) for subsequent determinations. ??Contact the Clinical Chemistry Laboratory if there are any questions. Chloride 108(H) 98 - 107 mmol/L [facility] Carbon Dioxide 25 22 - 31 mmol/L [facility] Anion Gap 11 5 - 15 mmol/L [facility] Calcium 8.9 8.5 - 10.5 mg/dL [facility] Est Glomerular Filtration Rate 81 >=60 mL/min/1. 73 m?? [facility] Comment: The eGFR was calculated using the CKD-EPI equation. As with all creatinine based estimates of kidney function, eGFR values calculated with the CKD-EPI equation are not accurate in patients with acute kidney failure, extremes of body mass or the acutely ill. [email or web address] eGFR 94 >=60 mL/min/1. 73 m?? [facility] Comment: The eGFR was calculated using the CKD-EPI equation. As with all creatinine based estimates of kidney function, eGFR values calculated with the CKD-EPI equation are not accurate in patients with acute kidney failure, extremes of body mass or the acutely ill. [email or web address] Blood specimen (specimen) 06/28/2019 2:30 PM EST 06/28/2019 2:59 PM EST Narrative Resulting Agency Comment Spec In Lab Avila Medina MD CHEMISTRY ORDERABLES Performing Organization Address City/[facility] Co de Phone Number [facility] [place] [address] * Hemoglobin and Hematocrit, blood (06/28/2019 2:30 PM EST) Hemoglobin 12.5 11.7 - 15.5 gm/dL [facility] Hematocrit 37.8 35.7 - 45.8 % [facility] Blood specimen (specimen) 06/28/2019 2:30 PM EST 06/28/2019 2:59 PM EST Narrative Resulting Agency Comment Spec In Lab Avila Medina MD HEMATOLOGY ORDERABLE S [facility] [place] [address] * POCT Glucose (06/28/2019 2:05 PM EST) Glucose, POC 133 65 - 199 mg/dL [facility] Comment: Supplemental ranges: <140 mg/dL before meals <180 mg/dL all other times of the day Blood specimen (specimen) 06/28/2019 2:05 PM EST 06/28/2019 2:05 PM EST Avila Medina MD POINT OF CARE TEST O ULISES Performing Organization Address [facility] de Phone Number [facility] [place] [address] * Specimen to Pathology (06/28/2019 12:59 PM EST) AP Specimen 06/28/2019 12:5 9 PM EST 06/28/2019 12:59 PM EST Narrative [facility] - 06/28/2019 12:59 PM EST Specimen requisition ordered. ??Separate Pathology report to follow Avila Medina MD PATHOLOGY/CYTOLOGY O ULISES Performing Organization Address [facility] Phone Number [facility] [place] [address] * Solid Tumor NGS Panel (06/28/2019 12:57 PM EST) Tissue specimen (specimen) 06/28/2019 12:57 PM EST 05/28/2020 1:28 PM EST Narrative Resulting Agency Comment Spec In Lab Avila Medina MD PATHOLOGY/CYTOLOGY O ULISES Performing Organization Address [facility] de Phone Number [facility] [place] [address] * Surgical Pathology Report (06/28/2019 12:57 PM EST) Final Diagnosis [id number] ? Location: [facility]; [facility]; A The signing pathologist has (i) examined [...] ?? A4 Normal Block(s): ?? 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 ??- Margins negative for carcinoma. ??- See synoptic report for additional details and staging. Electronically signed by: ??Christine Pierce MD Verified: ??07/04/2019 ?Pathologist Performed at: ??-[facility] Dept. [place], [facility], [place], [place] DISCUSSION Whole slide scan: [id number] A6-1 CLINICAL INFORMATION Specimen Submitted: A - [...] Inking: Parenchymal margin inked black. Sections/Processi ng: Hay Stacker Operator sections in 10 cassettes as follows: ?A1-A5: ??Tumor to closest margin ?A6: ??Tumor to fat ?A7-A8: ??Additional rental sales representative tumor ?A9: ??Lesion to normal kidney ?A10: ??Normal kidney ??[facility] 07/04/2019 11:12 AM EST [facility] SPECIMEN FROM KIDNEY / Unknown 06/28/2019 12:57 PM EST 06/28/2019 12:57 PM EST Avila Medina MD PATHOLOGY/CYTOLOGY O RDERACELY [facility] [place] [address] * (ABNORMAL) BLOOD GAS 2 ARTERIAL (06/28/2019 11:13 AM EST) pH, Arterial 7.33(L) 7.35 - 7.45 [facility] PCO2, Arterial 51(H) 35 - 45 mmHg [facility] PO2, Arterial 198(H) 85 - 104 mmHg [facility] Bicarbonate, Arterial 26.8(H) 20.0 - 26.0 mmol/L [facility] Base Excess, Arterial 0.4 -3.0 - 3.0 mmol/L [facility] Hgb Blood Gas 13.4 11.7 - 15.5 gm/dL [facility] Oxyhemoglobin, Arterial 94.2 94.0 - 97.0 % [facility] Carboxyhemoglob in, Arterial 4.6 % [facility] Comment: Nonsmokers: 0.5-1.5% COHB Smokers: Variable, but usually less than 10% Toxic: 20-30% COHB Lethal: Greater than 60% COHB Methemoglobin, Arterial 0.3 <=1.5 % [facility] Na Whole Blood 140 135 - 145 mmol/L [facility] K Whole Blood 4.1 3.5 - 5.0 mmol/L [facility] Comment: Please note: Patients with WBC >100,000 may have falsely elevated Potassium levels. Contact the Clinical Chemistry Laboratory if there are any questions. ICa Whole Blood 1.18 1.15 - 1.33 mmol/L [facility] Comment: Note: ??Total bilirubin higher than 20 mg/dL may lead to falsely low ionized calcium. CL Whole Blood 108(H) 98 - 107 mmol/L [facility] Gluc Whole Bld 160 65 - 199 mg/dL [facility] Comment:Diabetes: >=200 mg/d L plus symptoms. Lactate WB 1.3 0.5 - 2.2 mmol/L [facility] FIO2 Art 56 % [facility] PF Ratio Art 354 [facility] Temp Art 35.3 Celsius [facility] Blood specimen (specimen) 06/28/2019 11:13 AM EST 06/28/2019 11:13 AM EST Avila Medina MD POINT OF CARE TEST O RDERABLES [facility] [place] [address] * POCT Glucose (06/28/2019 8:17 AM EST) Glucose, POC 146 65 - 199 mg/dL [facility] Comment: Supplemental ranges: <140 mg/dL before meals <180 mg/dL all other times of the day Blood specimen (specimen) 06/28/2019 8:17 AM EST 06/28/2019 8:17 AM EST Avila Medina MD POINT OF C[place] [address] documented in this encounter Visit Diagnoses Diagnosis [...] 08 (Given - Provider: Allison Sánchez RN) 0923 (Given - Provider: Yue Moore RN) budesonide-formoterol [...] 09 (Given - Provider: Yue Moore RN) losartan [...] Unit), Routine 1013 (Given - Provider: Christine Wu RN)2138 (Given - Provider: Nelson Tomlinson, RN) 08 (Given - Provider: Allison Sánchez, VEDA)2011 (Given - Provider: Nelson Tomlinson, RN) 0930 (Given - Provider: Yue Moore RN) traZODone (Desyrel) tablet 100 mg 100 mg, Oral, NIGHTLY, First dose on Mon06/28/19 at 2100, Until Discontinued, Routine 2138 (Given - Provider: Nelson Tomlinson, RN) 2011 (Given - Provider: Nelson Tomlinson [...] Sánchez RN) 0002 (Given - Provider: Nelson Tomlinson RN) [...] Unit) 1057 (Given - Provider: Christine Wu, VEDA)7839 (See Alternative - Provider: Nelson Tomlinson, RN) [...] 1057 (See Alternative - Provider: Christine Wu RN)2144 (Given - Provider: Nelson Tomlinson RN) 1240 (Given - Provider: Allison Sánchez, RN) [...] Routine documented in this encounter Care Teams Science Technician Relationship Specialty Start Date End Date Luis E Narayan MD [facility] DR [facility] [place] [address] PCP - General Family Medicine 03/26/19 01/19/22 documented as of this encounter
--- OUTSIDE RECORDS SUMMARY | 2024-06-07 13:41 | XMS_ITS | Encounter Summary ---
Author Organization [facility] [place] [address] Care Team Providers Care Electrical Line Mechanic Name Role Phone Luis E Narayan MD Primary Care Provider [phone] Encounter Details Date Type Department Care Team (Latest Contact Info) Description 07/17/2019 9:20 AM EST Laboratory Appointment Lab [address] [place] [address] Renal mass, left Social History [...] AM EST Office Visit Internal Medicine at [facility] [address] [place] [address] Daryn Garrett MD [facility] [address] [facility] [place] [address] 10/02/2024 1:00 PM EDT Office [place] [address] Juanpablo Hernandez MD [facility] [place] [address] 01/30/2025 1:30 PM EDT Laboratory Appointment Lab [place] [facility] [address] [place] [phone] 01/30/2025 3:[address] [place] [phone] Arturo Cordero MD [facility] [address] HEMATOLOGY [place] [address] 01/30/2025 4:15 PM EDT Office Visit Hematology [place] [phone] Arturo Cordero MD [facility] HEMATOLOGY [place] [address] Scheduled Procedures Name Priority Associated Diagnoses Date/Ti [...] EST) Glucose 131 65 - 199 mg/dL [facility] Comment:Diabetes: >=200 mg/d L plus symptoms Blood Urea Nitrogen 17 8 - 18 mg/dL [facility] Creatinine 0.84 0.70 - 1.20 mg/dL [facility] Sodium 140 135 - 145 mmol/L [facility] Potassium 4.5 3.5 - 5.0 mmol/L [facility] Comment: Please note: ??Patients with WBC >100,000 may have falsely elevated Potassium levels. ??For accurate Potassium quantification in these patients send serum separator tube (gold top) for subsequent determinations. ??Contact the Clinical Chemistry Laboratory if there are any questions. Chloride 102 98 - 107 mmol/L [facility] Carbon Dioxide 28 22 - 31 mmol/L [facility] Anion Gap 10 5 - 15 mmol/L [facility] Calcium 10.1 8.5 - 10.5 mg/dL [facility] Est Glomerular Filtration Rate 76 >=60 mL/min/1. 73 m?? [facility] Comment: The eGFR was calculated using the CKD-EPI equation. As with all creatinine based estimates of kidney function, eGFR values calculated with the CKD-EPI equation are not accurate in patients with acute kidney failure, extremes of body mass or the acutely ill. [email or web address]/[facility] eGFR 88 >=60 mL/min/1. 73 m?? [facility] Comment: The eGFR was calculated using the CKD-EPI equation. As with all creatinine based estimates of kidney function, eGFR values calculated with the CKD-EPI equation are not accurate in patients with acute kidney failure, extremes of body mass or the acutely ill. [email or web address] Blood specimen (specimen) 07/17/2019 9:47 AM EST 07/17/2019 9:56 AM EST Narrative Resulting Agency Comment Spec In Lab Avila Medina MD CHEMISTRY ORDERABLES Performing Organization Address City/State/[facility] Co de Phone Number [facility] [place] [address] documented in this encounter Visit Diagnoses Diagnosis Renal mass, left Unspecified disorder of kidney and ureter documented in this encounter Care Teams Electrical Line Mechanic Relationship Specialty Start Date End Date Luis E Narayan MD [facility] [address] [facility]IL[facility] [address] PCP - General Family Medicine 03/26/19 01/19/22 documented as of this encounter
--- OUTSIDE RECORDS SUMMARY | 2024-06-07 13:41 | XMS_ITS | Encounter Summary ---
Author Organization [facility] [place] [address] Care Team Providers Care Paper Baling Machine Operator Name Role Phone Luis E Narayan MD Primary Care Provider Reason for Visit * Auth/Cert Specialty Diagnoses / Procedures Referred By Gonzalez t Referred To Contact Diagnoses Renal Mass Procedures PRO LAP, PARTIAL NEPHRECTOMY LAPAROSCOPY, PARTIAL NEPHRECTOMY, ROBOTIC ASSIST (WRVU 27.41) MODIFIER ROBOT,DAVINCI XI Referral ID Status Reason Start Date Expiration Date Visits Re quested Visits Authorized [id number] 1 1 Encounter Details Date Type Department Care Team (Late st Contact Info) Description 06/28/2019 8:30 AM EST - 06/28/2019 12:58 PM EST Surgery [place] [address] Avila Medina MD [facility] [place] [address] ROBOTIC LAPAROSCOPY, PARTIAL NEPHRECTOMY (WRVU 27.41) Social [...] Hospital Course: Alize Gramajo was admitted to [facility] on 06/28/2019 through the Same Day Surgery [...] that part of your care. Urology Clinic: [phone] PCP: Luis E Narayan MD, . Please follow-up with your PCP in 1-2 weeks or sooner as needed. Scheduled Appointments: The following appointments have been scheduled on your behalf: Future Appointments and Orders Future Appointments and Orders Future Appointments Provider Department Dept Phone 07/09/2019 2:30 PM [facility] Neurodiagnostic at [facility] Arrive at: Security Guard Supervisor Area [phone] 07/17/2019 9:20 AM LAB, THREE L Lab 3[facility] Arrive at: Security Guard Supervisor Area 3L [phone] 07/17/2019 10:20 AM Avila Medina MD Urology at [facility] Arrive at: Security Guard Supervisor Area 5B [phone] 07/22/2019 1:00 PM Luis E Narayan MD Primary Care at [facility] Arrive at: Security Guard Supervisor 2 South [phone] 08/05/2019 1:45 PM Amy Aguiar MD Neurology at [facility] Arrive at: Security Guard Supervisor Area 3C [phone] 08/13/2019 7:30 PM SLEEP, PHYSICIAN Sleep Center at [facility] Arrive at: Security Guard Supervisor 1 [place] [phone] Future Orders Complete By Expires Basic Metabolic [...] 07/09/2019 2:30 PM C-ELECTRONEURO, DIAGNOSTICS Neurodiagnostic at [facility] Arrive at: Security Guard Supervisor Area [phone] 07/17/2019 9:20 AM LAB, THREE L Lab [address] [place] [address] Arrive at: [facility] 07/17/2019 10:20 AM Avila Medina MD Urology at [facility] Arrive at: [facility] Area [phone] 07/22/2019 1:00 PM Luis E Narayan MD Primary Care at [facility] Arrive at: Security Guard Supervisor 2 [facility] [phone] 08/05/2019 1:45 PM Amy Aguiar MD Neurology at [facility] Arrive at: [facility] Area [phone] 08/13/2019 7:30 PM SLEEP, PHYSICIAN Sleep Center at [facility] Arrive at: Security Guard Supervisor 1 [place] [phone] Future Orders Complete By Expires Basic Metabolic [...] managed by the Urologic Surgery Team at [facility]. If you have any questions or concerns, please feel free to contact us. Provider Contact Information: Urology Clinic: [phone] [facility] (after business hours): CC: Luis E Narayan [...] 07/09/2019 2:30 PM [facility] Neurodiagnostic at [facility] Arrive at: Security Guard Supervisor Area 3C [phone] 07/17/2019 9:20 AM LAB, THREE L Lab 3[facility] Arrive at: Security Guard Supervisor Area 3L [phone] 07/17/2019 10:20 AM Avila Medina MD Urology at [facility] Arrive at: Security Guard Supervisor Area 5B [phone] 07/22/2019 1:00 PM Luis E Narayan MD Primary Care at [facility] Arrive at: Security Guard Supervisor 2 [facility] [phone] 08/05/2019 1:45 PM Amy Aguiar MD Neurology at [facility] Arrive at: Security Guard Supervisor Area [phone] 08/13/2019 7:30 PM SLEEP, PHYSICIAN Sleep Center at [facility] Arrive at: Security Guard Supervisor 1 [place] [phone] Future Orders Complete By Expires Basic Metabolic [...] 04/09/2019 06/22/2020 fluticasone propionate (FLONASE) 50 mcg/actuation Rake, Suspension 50 sprays by Each Nare route [...] patient. Please page the Regional Anesthesia Team ([phone]) with any questions or concerns. ?? Continue current management per primary service. ?? Thank you for the opportunity to have participated in the care of this patient. Julissa Morris MD Regional Team pager [phone] * Camilla Carrera - 06/30/2019 12:02 PM EST Urology Inpatient Progress Note ID: Alize Gramajo is a 58 y.o. female with history of ASCVD (AL with Stent 2007, on plavix), DM2, HTN, [...] rosario food. Resident paged - redirected this radio script writer to someone else on urology team. [...] spec had hemolyzed/ Lab contacted by this radio script writer at [phone] and new specimen has [...] 58 y.o. female with history of ASCVD (AL with Stent 2007, on plavix), DM2, HTN, [...] Alize Gramajo 58 y.o. 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 Atherosclerosis of [place] coronary artery of [place] heart with angina pectoris 10/09/2007 History [...] 4 ??? fluticasone propionate (FLONASE) 50 mcg/actuation Rake, Suspension 50 sprays by Each Nare route [...] Medina MD - 07/01/2019 3:45 PM EST [facility] Operative Note Patient Name: Alize Gramajo : [id number] MR#: [id number] Case Date: 06/28/2019 Surgeon: Surgeon(s) and Role: * Avila Medina MD - Primary * Juanpablo Helm MD - Resident Registered Nurse Compensator: Felisha Sher RN Preoperative diagnosis: renal mass [...] Info Order Time SPECIMEN TO PATHOLOGY OR09 70650 renal mass Left renal mass and fat [...] additional robotic ports were placed and an assignment desk assistant port, air seal was placed. Using [...] Admission order reviewed. Primary Insurance on file: [facility]TC [facility] Secondary Insurance on file: N/A Primary care provider on file: Luis E Narayan MD [phone] Advance Directive on file and Code Status: <no information>, Full Code Patient???s Functional Status: Independent using front wheel walker Living Situation: Home with support of family and friends [address] [facility] [place] [phone] Supports:Family and friends Assessment: Patient with no apparent RNCM/SW needs at this time. No housing, transportation, insurance, resources concerns identified at this time. Supports in place to achieve a safe post-hospital transition. No identified barriers to accessing necessary care and/or follow-up after discharge. Plan: Patient to d/c to Home via car when medically ready. hospital corpsman/Exotic Dancer will continue to follow patient???s progress and remain available if situation changes for coordination of care, psychosocial support and/or discharge planning. Rani Emanuel RN Pager [phone] * Plan of Care - Allison Sánchez [...] meal coverage, correction doses administered/or held per [facility] order parameters in place. HR [...] Operative Note Patient Name: Alize Gramajo : [id number] MR#: [id number] Case Date: 06/28/2019 Surgeon: Surgeon(s) and Role: [...] Info Order Time SPECIMEN TO PATHOLOGY OR09 18133 renal mass Left renal mass and fat [...] EST Office Visit Internal Medicine at [address] [phone] Daryn Garrett MD [facility] LILI WALKER [place] [address] 10/02/2024 1:00 PM EDT Office [place] [phone] Juanpablo Hernandez MD [facility] [place] [address] 01/30/2025 1:30 PM EDT Laboratory Appointment Lab at [facility] Hematology Oncology [address] [place] [phone] 01/30/2025 3:[address] [place] [address] Arturo Cordero MD [facility] HEMATOLOGY [place] [address] 01/30/2025 4:15 PM EDT Office Visit Hematology and Oncology at [facility] [place] [address] Arturo Cordero MD [facility] [address] HEMATOLOGY [place] [address] Scheduled Procedures Name Priority Associated Diagnoses Date/Ti [...] AM EST Renal mass Lap, Partial Nephrectomy (07719) 06/28/2019 8:39 AM EST Renal mass POCT GLUCOSE Routine 06/28/2019 8:17 AM EST documented in this encounter Results * Basic Metabolic Panel (non-fasting) (07/17/2019 9:47 AM EST) Glucose 131 65 - 199 mg/dL [facility] Comment:Diabetes: >=200 mg/d L plus symptoms Blood Urea Nitrogen 17 8 - 18 mg/dL [facility] Creatinine 0.84 0.70 - 1.20 mg/dL [facility] Sodium 140 135 - 145 mmol/L [facility] Potassium 4.5 3.5 - 5.0 mmol/L [facility] Comment: Please note: ??Patients with WBC >100,000 may have falsely elevated Potassium levels. ??For accurate Potassium quantification in these patients send serum separator tube (gold top) for subsequent determinations. ??Contact the Clinical Chemistry Laboratory if there are any questions. Chloride 102 98 - 107 mmol/L [facility] Carbon Dioxide 28 22 - 31 mmol/L [facility] Anion Gap 10 5 - 15 mmol/L [facility] Calcium 10.1 8.5 - 10.5 mg/dL [facility] Est Glomerular Filtration Rate 76 >=60 mL/min/1. 73 m?? [facility] Comment: The eGFR was calculated using the CKD-EPI equation. As with all creatinine based estimates of kidney function, eGFR values calculated with the CKD-EPI equation are not accurate in patients with acute kidney failure, extremes of body mass or the acutely ill. [email or web address] Songs/[email or web address] eGFR 88 >=60 mL/min/1. 73 m?? [facility] Comment: The eGFR was calculated using the CKD-EPI equation. As with all creatinine based estimates of kidney function, eGFR values calculated with the CKD-EPI equation are not accurate in patients with acute kidney failure, extremes of body mass or the acutely ill. [email or web address] Blood specimen (specimen) 07/17/2019 9:47 AM EST 07/17/2019 9:56 AM EST Narrative Resulting Agency Comment Spec In Lab Avila Medina MD CHEMISTRY ORDERABLES [facility] [place] [address] * POCT Glucose (07/01/2019 12:01 PM EST) Glucose, POC 124 65 - 199 mg/dL [facility] Comment: Supplemental ranges: <140 mg/dL before meals <180 mg/dL all other times of the day Blood specimen (specimen) 07/01/2019 12:01 PM EST 07/01/2019 12:01 PM EST Avila Medina MD POINT OF CARE TEST O RDERACELY Performing Organization Address [facility] Co de Phone Number [facility] [place] [address] * POCT Glucose (07/01/2019 7:28 AM EST) Glucose, POC 123 65 - 199 mg/dL [facility] Comment: Supplemental ranges: <140 mg/dL before meals <180 mg/dL all other times of the day Blood specimen (specimen) 07/01/2019 7:28 AM EST 07/01/2019 7:28 AM EST Avila Medina MD POINT OF CARE TEST O ULISES Performing Organization Address [facility] Co de Phone Number [facility] [place] [address] * POCT Glucose (06/30/2019 7:41 PM EST) Glucose, POC 120 65 - 199 mg/dL [facility] Comment: Supplemental ranges: <140 mg/dL before meals <180 mg/dL all other times of the day Blood specimen (specimen) 06/30/2019 7:41 PM EST 06/30/2019 7:41 PM EST Avila Medina MD POINT OF CARE TEST O RDERACELY Performing Organization Address City/[facility] Co de Phone Number [facility] [place] [address] * POCT Glucose (06/30/2019 3:15 PM EST) Glucose, POC 131 65 - 199 mg/dL [facility] Comment: Supplemental ranges: <140 mg/dL before meals <180 mg/dL all other times of the day Blood specimen (specimen) 06/30/2019 3:15 PM EST 06/30/2019 3:15 PM EST Avila Medina MD POINT OF CARE TEST O RDERACELY Performing Organization Address City/[facility] Co de Phone Number [facility] [place] [address] * POCT Glucose (06/30/2019 11:52 AM EST) Glucose, POC 146 65 - 199 mg/dL [facility] Comment: Supplemental ranges: <140 mg/dL before meals <180 mg/dL all other times of the day Blood specimen (specimen) 06/30/2019 11:52 AM EST 06/30/2019 11:52 AM EST Avila Medina MD POINT OF CARE TEST O ULISES Performing Organization Address [facility] Co de Phone Number [facility] [place] [address] * POCT Glucose (06/30/2019 7:48 AM EST) Glucose, POC 131 65 - 199 mg/dL [facility] Comment: Supplemental ranges: <140 mg/dL before meals <180 mg/dL all other times of the day Blood specimen (specimen) 06/30/2019 7:48 AM EST 06/30/2019 7:48 AM EST Avila Medina MD POINT OF CARE TEST O RDERABLES Performing Organization Address City/[facility] Co de Phone Number [facility] [place] [address] * POCT Glucose (06/30/2019 3:26 AM EST) Glucose, POC 124 65 - 199 mg/dL [facility] Comment: Supplemental ranges: <140 mg/dL before meals <180 mg/dL all other times of the day Blood specimen (specimen) 06/30/2019 3:26 AM EST 06/30/2019 3:26 AM EST Avila Medina MD POINT OF CARE TEST O DENISEERACELY Performing Organization Address City/[facility]/ZIP Co de Phone Number [facility] [place] [address] * POCT Glucose (06/29/2019 11:36 PM EST) Glucose, POC 153 65 - 199 mg/dL [facility] Comment: Supplemental ranges: <140 mg/dL before meals <180 mg/dL all other times of the day Blood specimen (specimen) 06/29/2019 11:36 PM EST 06/29/2019 11:36 PM EST Avila Medina MD POINT OF CARE TEST O ULISES Performing Organization Address [facility] Co de Phone Number [facility] [place] [address] * POCT Glucose (06/29/2019 3:36 PM EST) Glucose, POC 177 65 - 199 mg/dL [facility] Comment: Supplemental ranges: <140 mg/dL before meals <180 mg/dL all other times of the day Blood specimen (specimen) 06/29/2019 3:36 PM EST 06/29/2019 3:36 PM EST Avila Medina MD POINT OF CARE TEST O ULISES Performing Organization Address City/[facility] Co de Phone Number [facility] [place] [address] * POCT Glucose (06/29/2019 12:03 PM EST) Glucose, POC 138 65 - 199 mg/dL [facility] Comment: Supplemental ranges: <140 mg/dL before meals <180 mg/dL all other times of the day Blood specimen (specimen) 06/29/2019 12:03 PM EST 06/29/2019 12:03 PM EST Avila Medina MD POINT OF CARE TEST O RDERABLES Performing Organization Address [facility] Co de Phone Number [facility] [place] [address] * Creatinine Level Body Fluid YANDY Drain (06/29/2019 10:29 AM EST) Creatinine, Fluid 0.8 mg/dL [facility] Comment: No reference range is available for the specimen type submitted. ??The performance of this assay for the submitted type has not been validated and results should be interpreted accordingly and with regard to the patient's clinical status. Creat, Fld Type YANDY Drain [facility] YANDY Drain 06/29/2019 10:2 9 AM EST 06/29/2019 11:00 AM EST Narrative Resulting Agency Comment Spec In Lab Avila Medina MD BODY FLUIDS AND STOO LS ORDERABLES Performing Organization Address [facility] de Phone Number [facility] [place] [address] * POCT Glucose (06/29/2019 6:53 AM EST) [facility] Glucose, POC 129 65 - 199 mg/dL [facility] Comment: Supplemental ranges: <140 mg/dL before meals <180 mg/dL all other times of the day Blood specimen (specimen) 06/29/2019 6:53 AM EST 06/29/2019 6:53 AM EST Avila Medina MD POINT OF CARE TEST O RDERACELY Performing Organization Address [facility] de Phone Number [facility] [place] [address] * (ABNORMAL) Differential, Automated (06/29/2019 2:57 AM EST) Neutrophil % 73.6 % [facility] Neutrophil Absolute 7.96(H) 1.70 - 6.10 x10(3)/[facility] Lymph % 15.1 % [facility] Lymphocytes Abs 1.6 0.9 - 3.2 x10(3)/[facility] Monocyte % 9.2 % [facility] Monocyte Abs 1.0(H) 0.3 - 0.9 x10(3)/[facility] Eos % 1.2 % [facility] Eosinophils Abs 0.1 0.0 - 0.4 x10(3)/[facility] Basophil % 0.4 % [facility] Baso Absolute 0.0 0.0 - 0.1 x10(3)/[facility] Immature Gran % 0.50 % [facility] Comment: Immature granulocytes(IG's)percentage and absolute count will include metamyelocytes, myelocytes, and promyelocytes. Blood smears from CBCs yielding IG's will be scanned manually for concordance. If this scan disagrees with the automated IG or if promyelocytes are noted, a manual differential will be performed. Immature Gran Absolute 0.05(H) 0.00 - 0.04 x10(3)/[facility] Blood specimen (specimen) 06/29/2019 2:57 AM EST 06/29/2019 3:03 AM EST Narrative Resulting Agency Comment Spec In Lab Camilla Carrera MD HEMATOLOGY ORDERABLE S [facility] [place] [address] * (ABNORMAL) Hemogram (06/29/2019 2:57 AM EST) White Blood Cell 10.8(H) 4.0 - 9.5 x10(3)/[facility] Red Blood Cell 4.17 4.00 - 5.21 x10(6)/[facility] Hemoglobin 11.9 11.7 - 15.5 gm/dL [facility] Hematocrit 37.3 35.7 - 45.8 % [facility] Mean Cell Volume 89.4 82.6 - 94.4 fL [facility] Mean Cell Hemoglobin 28.5 27.1 - 32.0 pg [facility] Mean Cell Hemoglobin Concentration 31.9 31.7 - 35.0 gm/dL [facility] Platelet 277 145 - 357 x10(3)/mc L [facility] RDW Standard Deviation 47.2(H) 37.0 - 46.0 fL [facility] RDW coefficient of variation 14.4(H) 11.5 - 14.1 % [facility] Mean Platelet Volume 9.4 7.6 - 12.9 fL [facility] NRBC% auto 0.0 % [facility] NRBC Absolute 0.000 0.000 - 0.000 x10(3)/mc L [facility] Blood specimen (specimen) 06/29/2019 2:57 AM EST 06/29/2019 3:03 AM EST Narrative Resulting Agency Comment Spec In Lab Camilla Carrera MD HEMATOLOGY ORDERABLE S Performing Organization Address [facility]/State/ZIP Co de Phone Number [facility] [place] [address] * (ABNORMAL) BMP w/fasting Glucose (06/29/2019 2:57 AM EST) Glucose Fasting 116(H) 65 - 99 mg/dL [facility] Comment: ?Fasting* Glucose Interpretive [...] of Diabetes Mellitus, Position Statement from the [place] [employer]. ??Diabetes Care, Volume 33, Supplement 1, Jul 2009 Blood Urea Nitrogen 10 8 - 18 mg/dL [facility] Creatinine 0.82 0.70 - 1.20 mg/dL [facility] Sodium 144 135 - 145 mmol/L [facility] [...] questions. Chloride 107 98 - 107 mmol/L [facility] Carbon Dioxide 26 22 - 31 mmol/L [facility] Anion Gap 11 5 - 15 mmol/L [facility] Calcium 8.9 8.5 - 10.5 mg/dL [facility] Est Glomerular Filtration Rate 78 >=60 mL/min/1. 73 m?? [facility] Comment: The eGFR was calculated using the CKD-EPI equation. As with all creatinine based estimates of kidney function, eGFR values calculated with the CKD-EPI equation are not accurate in patients with acute kidney failure, extremes of body mass or the acutely ill. [email or web address] Songs/[email or web address] eGFR 91 >=60 mL/min/1. 73 m?? [facility] Comment: The eGFR was calculated using the CKD-EPI equation. As with all creatinine based estimates of kidney function, eGFR values calculated with the CKD-EPI equation are not accurate in patients with acute kidney failure, extremes of body mass or the acutely ill. [email or web address] Blood specimen (specimen) 06/29/2019 2:57 AM EST 06/29/2019 3:03 AM EST Narrative Resulting Agency Comment Spec In Lab Avila Medina MD CHEMISTRY ORDERABLES Performing Organization Address [facility] de Phone Number [facility] [place] [address] * POCT Glucose (06/28/2019 9:57 PM EST) Glucose, POC 148 65 - 199 mg/dL [facility] Comment: Supplemental ranges: <140 mg/dL before meals <180 mg/dL all other times of the day Blood specimen (specimen) 06/28/2019 9:57 PM EST 06/28/2019 9:57 PM EST Avila Medina MD POINT OF CARE TEST O RDERABLES Performing Organization Address [facility] de Phone Number [facility] [place] [address] * Creatinine Level Body Fluid YANDY Drain (06/28/2019 9:49 PM EST) Creatinine, Fluid 1.0 mg/dL [facility] Comment: No reference range is available for the specimen type submitted. ??The performance of this assay for the submitted type has not been validated and results should be interpreted accordingly and with regard to the patient's clinical status. Creat, Fld Type YANDY Drain [facility] YANDY Drain 06/28/2019 9:49 PM EST 06/28/2019 10:09 PM EST Narrative Resulting Agency Comment Spec In Lab Avila Medina MD BODY FLUIDS AND STOO LS ORDERABLES Performing Organization Address [facility] de Phone Number [facility] [place] [address] * POCT Glucose (06/28/2019 4:13 PM EST) Glucose, POC 116 65 - 199 mg/dL [facility] Comment: Supplemental ranges: <140 mg/dL before meals <180 mg/dL all other times of the day Blood specimen (specimen) 06/28/2019 4:13 PM EST 06/28/2019 4:13 PM EST Avila Medina MD POINT OF CARE TEST O RDERABLES [facility] [place] [address] * (ABNORMAL) BMP w/fasting Glucose (06/28/2019 2:30 PM EST) Glucose Fasting 147(H) 65 - 99 mg/dL [facility] Comment: ?Fasting* Glucose Interpretive [...] of Diabetes Mellitus, Position Statement from the [place] [employer]. ??Diabetes Care, Volume 33, Supplement 1, Jul 2009 Blood Urea Nitrogen 10 8 - 18 mg/dL [facility] Creatinine 0.80 0.70 - 1.20 mg/dL [facility] Sodium 144 135 - 145 mmol/L [facility] [...] questions. Chloride 108(H) 98 - 107 mmol/L [facility] Carbon Dioxide 25 22 - 31 mmol/L [facility] Anion Gap 11 5 - 15 mmol/L [facility] Calcium 8.9 8.5 - 10.5 mg/dL [facility] Est Glomerular Filtration Rate 81 >=60 mL/min/1. 73 m?? [facility] Comment: The eGFR was calculated using the CKD-EPI equation. As with all creatinine based estimates of kidney function, eGFR values calculated with the CKD-EPI equation are not accurate in patients with acute kidney failure, extremes of body mass or the acutely ill. [email or web address]://[email or web address]/[email or web address] eGFR 94 >=60 mL/min/1. 73 m?? [facility] Comment: The eGFR was calculated using the CKD-EPI equation. As with all creatinine based estimates of kidney function, eGFR values calculated with the CKD-EPI equation are not accurate in patients with acute kidney failure, extremes of body mass or the acutely ill. [email or web address]://[email or web address]/[email or web address] Blood specimen (specimen) 06/28/2019 2:30 PM EST 06/28/2019 2:59 PM EST Narrative Resulting Agency Comment Spec In Lab Avila eMdina MD CHEMISTRY ORDERABLES Performing Organization Address [facility] Co de Phone Number [facility] [place] [address] * Hemoglobin and Hematocrit, blood (06/28/2019 2:30 PM EST) Hemoglobin 12.5 11.7 - 15.5 gm/dL [facility] Hematocrit 37.8 35.7 - 45.8 % [facility] Blood specimen (specimen) 06/28/2019 2:30 PM EST 06/28/2019 2:59 PM EST Narrative Resulting Agency Comment Spec In Lab Avila Medina MD HEMATOLOGY ORDERABLE S Performing Organization Address City/[facility]/ZIP Co de Phone Number [facility] [place] [address] * POCT Glucose (06/28/2019 2:05 PM EST) Glucose, POC 133 65 - 199 mg/dL [facility] Comment: Supplemental ranges: <140 mg/dL before meals <180 mg/dL all other times of the day Blood specimen (specimen) 06/28/2019 2:05 PM EST 06/28/2019 2:05 PM EST Avila Medina MD POINT OF CARE TEST O RDLESLEY Performing Organization Address [facility] de Phone Number [facility] [place] [address] * Specimen to Pathology (06/28/2019 12:59 PM EST) AP Specimen 06/28/2019 12:5 9 PM EST 06/28/2019 12:59 PM EST Narrative [facility] - 06/28/2019 12:59 PM EST Specimen requisition ordered. ??Separate Pathology report to follow Avila Medina MD PATHOLOGY/CYTOLOGY O ULISES Performing Organization Address [facility] de Phone Number [facility] [place] [place] [address] * Solid Tumor NGS Panel (06/28/2019 12:57 PM EST) Tissue specimen (specimen) 06/28/2019 12:57 PM EST 05/28/2020 1:28 PM EST Narrative Resulting Agency Comment Spec In Lab Avila Medina MD PATHOLOGY/CYTOLOGY O ULISES Performing Organization Address [facility] Phone Number [facility] [place] [address] * Surgical Pathology Report (06/28/2019 12:57 PM EST) Final Diagnosis [id number] ? Location: [facility]; [facility]; A The signing pathologist has (i) [...] Pierce MD Verified: ??07/04/2019 ?Pathologist Performed at: ??-[facility] Dept. of Pathology, [facility] [place], [place] DISCUSSION Whole slide scan: [id number] CLINICAL INFORMATION Specimen Submitted: A - [...] Inking: Parenchymal margin inked black. Sections/Processi ng: Heel Seat Pounder sections in 10 cassettes as follows: ?A1-A5: ??Tumor to closest margin ?A6: ??Tumor to fat ?A7-A8: ??Additional distribution sales representative tumor ?A9: ??Lesion to normal kidney ?A10: ??Normal kidney ??[facility] 07/04/2019 11:12 AM EST [facility] SPECIMEN FROM KIDNEY / Unknown 06/28/2019 12:57 PM EST 06/28/2019 12:57 PM EST Avila Medina MD PATHOLOGY/CYTOLOGY O RDERABLES [facility] [place] [address] * (ABNORMAL) BLOOD GAS 2 ARTERIAL (06/28/2019 11:13 AM EST) pH, Arterial 7.33(L) 7.35 - 7.45 [facility] PCO2, Arterial 51(H) 35 - 45 mmHg [facility] PO2, Arterial 198(H) 85 - 104 mmHg [facility] Bicarbonate, Arterial 26.8(H) 20.0 - 26.0 mmol/L [facility] Base Excess, Arterial 0.4 -3.0 - 3.0 mmol/L [facility] Hgb Blood Gas 13.4 11.7 - 15.5 gm/dL [facility] Oxyhemoglobin, Arterial 94.2 94.0 - 97.0 % [facility] Carboxyhemoglob in, Arterial 4.6 % [facility] Comment: Nonsmokers: 0.5-1.5% COHB Smokers: Variable, but usually less than 10% Toxic: 20-30% COHB Lethal: Greater than 60% COHB Methemoglobin, Arterial 0.3 <=1.5 % [facility] Na Whole Blood 140 135 - 145 mmol/L [facility] K Whole Blood 4.1 3.5 - 5.0 mmol/L [facility] Comment: Please note: Patients with WBC >100,000 may have falsely elevated Potassium levels. Contact the Clinical Chemistry Laboratory if there are any questions. ICa Whole Blood 1.18 1.15 - 1.33 mmol/L [facility] Comment: Note: ??Total bilirubin higher than 20 mg/dL may lead to falsely low ionized calcium. CL Whole Blood 108(H) 98 - 107 mmol/L [facility] Gluc Whole Bld 160 65 - 199 mg/dL [facility] Comment:Diabetes: >=200 mg/d L plus symptoms. Lactate WB 1.3 0.5 - 2.2 mmol/L [facility] FIO2 Art 56 % [facility] PF Ratio Art 354 [facility] Temp Art 35.[address] [facility] Blood specimen (specimen) 06/28/2019 11:13 AM EST 06/28/2019 11:13 AM EST Avila Medina MD POINT OF CARE TEST O RDERABLES [facility] [place] [address] * POCT Glucose (06/28/2019 8:17 AM EST) Glucose, POC 146 65 - 199 mg/dL [facility] Comment: Supplemental ranges: <140 mg/dL before meals <180 mg/dL all other times of the day Blood specimen (specimen) 06/28/2019 8:17 AM EST 06/28/2019 8:17 AM EST Avila Medina MD POINT OF CARE TEST O ULISES [facility] [place] [address] documented in this encounter Visit Diagnoses Diagnosis [...] 2138 (Given - Provider: Nelson Tomlinson RN) 0810 (Given - Provider: Allison Sánchez RN)2020 (Given - Provider: Nelson Tomlinson RN) 0933 (Given - Provider: Yue Moore RN) docusate sodium (Colace) capsule 100 mg 100 mg, Oral, 2 TIMES DAILY, First dose on Mon06/28/19 at 2100, Until Discontinued, Routine 1009 (Given - Provider: Christine Wu RN)213 (Given - Provider: Nelson Tomlinson RN) 0809 (Given - Provider: Allison Sánchez RN)2011 (Given [...] Sánchez, VEDA) 0923 (Given - Provider: Yue Moore RN) [...] Wu, VEDA)2138 (Given - Provider: Nelson Tomlinson, RN) 0811 (Given - Provider: Allison Sánchez, VEDA)2011 [...] Routine documented in this encounter Care Teams Paper Baling Machine Operator Relationship Specialty Start Date End Date Luis E Narayan MD [facility] DR LILI WALKER[place] [address] PCP - General Family Medicine 03/26/19 01/19/22 documented as of this encounter
--- OUTSIDE RECORDS SUMMARY | 2024-06-07 13:41 | XMS_ITS | Encounter Summary ---
Author Organization [facility] Address [facility] [place] [address] Care Team Providers Care Carpenter Railcar Name Role Phone Luis E Narayan MD Primary Care Provider [phone] Reason for Visit * Reason Comments Follow-up Encounter Details Date Type Department Care Team (Latest Contact Info) Description 08/05/2019 10:20 AM EST Office Visit Family Medicine at [facility] [address] [place] [address] Inocencia Grigsby MD [facility] [place] [address] Bipolar affective disorder in remission; Balance problem; [...] AM EST Office Visit Internal Medicine at [place] [address] [place] [address] Daryn Garrett MD [facility] [address] LILI [place] [address] 10/02/2024 1:00 PM EDT Office [place] [phone] Juanpablo Hernandez MD [facility] [place] [address] 01/30/2025 1:30 PM EDT Laboratory Appointment Lab at [facility] Hematology Oncology [address] [place] [phone] 01/30/2025 3:[address] [place] [phone] Arturo Cordero MD [facility] DR HEMATOLOGY [place] [address] 01/30/2025 4:15 PM EDT Office Visit Hematology [place] [phone] Arturo Cordero MD [facility] DR HEMATOLOGY [place] [address] Scheduled Procedures Name Priority Associated Diagnoses Date/Ti [...] cause documented in this encounter Care Teams Carpenter Railcar Relationship Specialty Start Date End Date Luis E Narayan MD [facility] [address] [place] [address] PCP - General Family Medicine 03/26/19 01/19/22 documented as of this encounter
--- OUTSIDE RECORDS SUMMARY | 2024-06-07 13:41 | XMS_ITS | Encounter Summary ---
Author Organization [facility] Address [facility] [place] [address] Care Team Providers Care Cardiovascular Lab Director Name Role Phone Luis E Narayan MD Primary Care Provider Encounter Details Date Type Department Care Team (Late st Contact Info) Description 07/18/2019 [place] [address] Avila Medina MD [facility] [address] Social History Tobacco Use Types Packs/Day Years [...] AM EST Office Visit Internal Medicine at [address] [place] [address] Daryn Garrett MD [facility] [address] LILI W[place]ER [place] [address] 10/02/2024 1:00 PM EDT Office Visit Ophthalmology at [place] [phone] Juanpablo Hernandez MD [facility] [place] [address] 01/30/2025 1:30 PM EDT Laboratory Appointment Lab at [facility] Hematology Oncology [address] [place], [place] [phone] 01/30/2025 3:[address] Scan at [place] [phone] Arturo Cordero MD [facility] DR HEMATOLOGY [place] [address] 01/30/2025 4:15 PM EDT Office Visit Hematology and Oncology at [place] [phone] Arturo Cordero MD [facility] [place] [address] Scheduled Procedures Name Priority Associated Diagnoses Date/Ti me EGD, UPPER GI ENDOSCOPY (WRV U 2.09) Irritable bowel syndrome with constipation COLONOSCOPY, DIAGNOSTIC (WRV U 3.26) Irritable bowel syndrome with constipation documented as of this encounter Visit Diagnoses Not on filedocumented in this encounter Care Teams Cardiovascular Lab Director Relationship Specialty Start Date End Date Luis E Narayan MD [facility] [address] [facility]IL[place] [address] PCP - General Family Medicine 03/26/19 01/19/22 documented as of this encounter
--- OUTSIDE RECORDS SUMMARY | 2024-06-07 13:41 | XMS_ITS | Encounter Summary ---
Author Organization [facility] [place] [address] Care Team Providers Care Health And Safety Trainer Name Role Phone Luis E Narayan MD Primary Care Provider Encounter Details Date Type Department Care Team (Late Contact Info) Description 07/02/2019 [place] [phone] Camilla Carrera MD [facility] [place] [address] Social History Tobacco Use Types Packs/Day Years [...] at [facility] [address] [place] [phone] Daryn Garrett MD [facility] [address] [place] [address] 10/02/2024 1:00 PM EDT Office Visit Ophthalmology at [place] [phone] Juanpablo Hernandez MD [facility] [place] [address] 01/30/2025 1:30 PM EDT Laboratory Appointment Lab at [facility] Hematology Oncology [address] [place] [phone] 01/30/2025 3:[address] [place] [phone] Arturo Cordero MD [facility] [place] [address] 01/30/2025 4:15 PM EDT Office Visit Hematology [place] [phone] Arturo Cordero MD [facility] [place] [address] Scheduled Procedures Name Priority Associated Diagnoses Date/Ti me EGD, UPPER GI ENDOSCOPY (WRV U 2.09) Irritable bowel syndrome with constipation COLONOSCOPY, DIAGNOSTIC (WRV U 3.26) Irritable bowel syndrome with constipation documented as of this encounter Visit Diagnoses Not on filedocumented in this encounter Care Teams Health And Safety Trainer Relationship Specialty Start Date End Date Luis E Narayan MD [facility] DR LIL[place] [address] PCP - General Family Medicine 03/26/19 01/19/22 documented as of this encounter
--- OUTSIDE RECORDS SUMMARY | 2024-06-07 13:41 | XMS_ITS | Encounter Summary ---
Author Organization [facility] Address [facility] [place] [address] Care Team Providers Care Workforce Development Vice President Name Role Phone Daryn Garrett MD Primary Care Provider Reason for Visit * Reason Onset Date Comments Medication Refill 08/01/2019 Encounter Details Date Type Department Care Team (Late st Contact Info) Description 08/01/2019 Refill Family Medicine at [facility] [address] [place] [phone] Bonny Emanuel MD [address] [place] [address] Social History Tobacco Use Types Packs/Day Years [...] [facility] [address] [place] [phone] Daryn Garrett MD [facility] [address] [place] [address] 10/02/2024 1:00 PM EDT Office [place] [address] Juanpablo Hernandez MD [facility] [place] [address] 01/30/2025 1:30 PM EDT Laboratory Appointment Lab at [facility] Hematology Oncology [address] [place] [phone] 01/30/2025 3:[address] [place] [address] Arturo Cordero MD [facility] DR HEMATOLOGY [place] [address] 01/30/2025 4:15 PM EDT Office Visit Hematology [place] [address] Arturo Cordero MD [facility] DR HEMATOLOGY [place] [address] Scheduled Procedures Name Priority Associated Diagnoses Date/Ti me EGD, UPPER GI ENDOSCOPY (WRV U 2.09) Irritable bowel syndrome with constipation COLONOSCOPY, DIAGNOSTIC (WRV U 3.26) Irritable bowel syndrome with constipation documented as of this encounter Visit Diagnoses Not on filedocumented in this encounter Care Teams Workforce Development Vice President Relationship Specialty Start Date End Date Daryn Garrett MD [facility] [address] [place] [address] PCP - General 04/10/24 documented as of this encounter
--- OUTSIDE RECORDS SUMMARY | 2024-06-07 13:41 | XMS_ITS | Encounter Summary ---
Author Organization [facility] [place] [address] Care Team Providers Care Knockdown Man Name Role Phone Luis E Narayan MD Primary Care Provider Reason for Referral * Psychiatric (Routine) - Specialty Diagnoses / Procedures Referred By Gonzalez kumari Referred To Contact Neuropsychology Diagnoses Cognitive and behavioral changes Amy Aguiar MD [facility] [place] [address] Referral ID Status Reason Start Date Expiration Date V isits Requested Visits Authorized [id number] Consult, Test & Treat 08/05/2019 02/01/2020 1 1 Encounter Details Date Type Department Care Team (Late st Contact Info) Description 08/05/2019 1:45 PM EST Office [place] [address] Alber Spann MD [facility] [place] [address] Amy Aguiar MD [facility] [place] [address] Cognitive and behavioral changes Social History Tobacco [...] breakdown due to steroids. Patient states she [facility] stop steroids and gave her breathing treatments. 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 She states her [...] inhalerswith good effect ??? Atherosclerosis of [place] coronary artery of [place] heart with angina pectoris 10/09/2007 History of [...] MD at [facility] Medications: Current Outpatient Medications on File Prior to Visit Medication Sig Dispense Refill ??? fluticasone propionate (FLONASE) 50 mcg/actuation [place], Suspension 1 spray by Each Nare route [...] and lateral aspects of feet Vibration via [employer] tuning fork (1-8): reduced at big toes [...] Zana Aguiar MD Clinical Neurophysiology Fellow Pager: [phone] 08/05/2019 CC: Luis E Narayan MD, Luis [...] AM EST Office Visit Internal Medicine at [address] [phone] Daryn Garrett MD [facility] DR LILI WALKER - PRIMARY CARE [place], [place] [phone] 10/02/2024 1:00 PM EDT Office Visit [place] [phone] Juanpablo Hernandez MD [facility] [place] [address] 01/30/2025 1:30 PM EDT Laboratory Appointment Lab at [facility] Hematology Oncology [address] [place] [phone] 01/30/2025 3:[address] [place] [phone] Arturo Cordero MD [facility] DR HEMATOLOG[place] [address] 01/30/2025 4:15 PM EDT Office Visit Hematology [place] [phone] Arturo Cordero MD [facility] DR HEMATOLOG[place] [address] Scheduled Procedures Name Priority Associated Diagnoses Date/Ti [...] PM EST) Paraneo Eval Interpretation SEE COMMENTS [facility] Comment: No informative autoantibodies were detected in the Paraneoplastic Evaluation. However, a negative result does not exclude neurological autoimmunity with or without associated neoplasia. Sensitivity and specificity of antibody testing are enhanced by testing both serum and CSF. Test Performed by: [place] [id number] Web Architect: Jose G Jefferson M.D. Ph.D.; CLIA# [id number] EDITA-1 (Anti-Neuronal Nuclear Ab, Type 1) (NOVEMBER) Negative <1:[address] [facility] Comment: Test Performed by: [place] [id number] Web Architect: Jose G Jefferson M.D. Ph.D.; CLIA# [id number] EDITA-2 (Anti-Neuronal Nuclear Ab,Type 2) (NOVEMBER) Negative <1:[address] [facility] Comment: ADDITIONAL INFORMATION This test was developed and its performance characteristics determined by [facility] in a manner consistent with CLIA requirements. This test has not been cleared or approved by the U.S. Food and Drug Administration. Test Performed by: [facility] [address] Web Architect: Jose G Jefferson M.D. Ph.D.; CLIA# [id number] EDITA-3 (Anti-Neuronal Nuclear Ab, Type 3) (NOVEMBER) Negative <1:[address] [facility] Comment: ADDITIONAL INFORMATION This test was developed and its performance characteristics determined by [facility] in a manner consistent with CLIA requirements. This test has not been cleared or approved by the U.S. Food and Drug Administration. Test Performed by: [place] [id number] Web Architect: Jose G Jefferson M.D. Ph.D.; CLIA# [id number] AGNA-1 (Anti-Glial Nuclear Ab, Type 1) (NOVEMBER) Negative <1:[address] [facility] Comment: ADDITIONAL INFORMATION This test was developed and its performance characteristics determined by [facility] in a manner consistent with CLIA requirements. This test has not been cleared or approved by the U.S. Food and Drug Administration. Test Performed by: [facility] [address] Web Architect: Jose G Jefferson M.D. Ph.D.; CLIA# [id number] TOOL TROUBLE SHOOTER-1 (Purkinje Cell Cytoplasmic Ab-Type 1) (NOVEMBER) Negative <1:[address] [facility] Comment: ADDITIONAL INFORMATION This test was developed and its performance characteristics determined by [facility] in a manner consistent with CLIA requirements. This test has not been cleared or approved by the U.S. Food and Drug Administration. Test Performed by: [facility] [address] Web Architect: Jos eG Jefferson M.D. Ph.D.; CLIA# [id number] TOOL TROUBLE SHOOTER-2 (Purkinje Cell Cytoplasmic Ab-Type 2) (NOVEMBER) Negative <1:[address] [facility] Comment: ADDITIONAL INFORMATION This test was developed and its performance characteristics determined by [facility] in a manner consistent with CLIA requirements. This test has not been cleared or approved by the U.S. Food and Drug Administration. Test Performed by: [facility] [address] Web Architect: Jose G Jefferson M.D. Ph.D.; CLIA# [id number] TOOL TROUBLE SHOOTER-Type TR (Purkinje Cell Cytoplasmic Ab-Type Tr) (NOVEMBER) Negative <1:[address] [facility] Comment: ADDITIONAL INFORMATION This test was developed and its performance characteristics determined by [facility] in a manner consistent with CLIA requirements. This test has not been cleared or approved by the U.S. Food and Drug Administration. Test Performed by: [facility] [address] Web Architect: Jose G Jefferson M.D. Ph.D.; CLIA# [id number] Amphiphysin Antibody (NOVEMBER) Negative <1:[address] [facility] Comment: ADDITIONAL INFORMATION This test was developed and its performance characteristics determined by [facility] in a manner consistent with CLIA requirements. This test has not been cleared or approved by the U.S. Food and Drug Administration. Test Performed by: [facility] [address] Web Architect: Jose G Jefferson M.D. Ph.D.; CLIA# [id number] CRMP-5-IgG (NOVEMBER) Negative <1:[address] [facility] Comment: ADDITIONAL INFORMATION This test was developed and its performance characteristics determined by [facility] in a manner consistent with CLIA requirements. This test has not been cleared or approved by the U.S. Food and Drug Administration. Test Performed by: [facility] [address] Web Architect: Jose G Jefferson M.D. Ph.D.; CLIA# [id number] Striated Muscle Ab Negative <1:[address] [facility] Comment: ADDITIONAL INFORMATION This test was developed and its performance characteristics determined by [facility] in a manner consistent with CLIA requirements. This test has not been cleared or approved by the U.S. Food and Drug Administration. Test Performed by: [facility] [address] Web Architect: Jose G Jefferson M.D. Ph.D.; CLIA# [id number] P/Q-Type Ca Channel Ab (NOVEMBER) 0.00 <=0.02 nmol/L [facility] Comment: ADDITIONAL INFORMATION This test was developed and its performance characteristics determined by [facility] in a manner consistent with CLIA requirements. This test has not been cleared or approved by the U.S. Food and Drug Administration. Test Performed by: [facility] [address] Web Architect: Jose G Jefferson M.D. Ph.D.; CLIA# [id number] N-Type Ca Channel Ab 0.00 <=0.03 nmol/L [facility] Comment: ADDITIONAL INFORMATION This test was developed and its performance characteristics determined by [facility] in a manner consistent with CLIA requirements. This test has not been cleared or approved by the U.S. Food and Drug Administration. Test Performed by: [facility] [address] Web Architect: Jose G Jefferson M.D. Ph.D.; CLIA# [id number] AChR Gang Neuronal Ab 0.00 <=0.02 nmol/L [facility] Comment: ADDITIONAL INFORMATION This test was developed and its performance characteristics determined by [facility] in a manner consistent with CLIA requirements. This test has not been cleared or approved by the U.S. Food and Drug Administration. Test Performed by: [facility] [address] Web Architect: Jose G Jefferson M.D. Ph.D.; CLIA# [id number] Neuronal (V-G) K+ Channel Ab (NOVEMBER) 0.00 <=0.02 nmol/L [facility] Comment: ADDITIONAL INFORMATION This test was developed and its performance characteristics determined by [facility] in a manner consistent with CLIA requirements. This test has not been cleared or approved by the U.S. Food and Drug Administration. Test Performed by: [facility] [address] [address] Web Architect: Jose G Jefferson M.D. Ph.D.; CLIA# [id number] Blood specimen (specimen) Venous Draw / Unknown 08/05/2019 3:34 PM EST 08/12/2019 9:21 AM EST Narrative Resulting Agency Comment Spec In Lab Amy Aguiar MD LAB SEND OUT ORD ERABLES [facility] [place] [address] * Vitamin B6 (08/05/2019 3:34 PM EST) Pathologist [facility] Vitamin B6 (NOVEMBER) 5 5 - 50 mcg/L [facility] Comment: ADDITIONAL INFORMATION This test was developed and its performance characteristics determined by [facility] in a manner consistent with CLIA requirements. This test has not been cleared or approved by the U.S. Food and Drug Administration. Test Performed by: [facility] [address] [place] [address] Web Architect: Jose G Jefferson M.D. Ph.D.; CLIA# [id number] Blood specimen (specimen) 08/05/2019 3:34 PM EST 08/05/2019 4:07 PM EST Narrative Resulting Agency Comment Spec In Lab Alber Spann MD LAB SEND OUT ORD ERABLES Performing Organization Address City/[facility]/ZIP Co de Phone Number [facility] [place] [address] * Protein Electrophoresis, serum (08/05/2019 3:34 PM EST) Total Prot Electrophoresis 6.6 6.1 - 8.0 gm/dL [facility] Albumin Electrophoresis 4.42 3.60 - 6.00 gm/dL [facility] Alpha 1 Globulin 0.17 0.10 - 0.30 gm/dL [facility] Alpha 2 Globulin 0.67 0.40 - 0.90 gm/dL [facility] Beta Globulin 0.70 0.50 - 1.00 gm/dL [facility] Gamma Globulin 0.65 0.50 - 1.30 gm/dL [facility] M1 Band None Detected None Detected [facility] Blood specimen (specimen) 08/05/2019 3:34 PM EST 08/05/2019 3:40 PM EST Narrative Resulting Agency Comment Spec In Lab Alber Spann MD CHEMISTRY ORDERA BLES Performing Organization Address [facility] Co de Phone Number [facility] [place] [address] documented in this encounter Visit Diagnoses Diagnosis Cognitive and behavioral changes Other signs and symptoms involving cognition documented in this encounter Care Teams Knockdown Man Relationship Specialty Start Date End Date Luis E Narayan MD [facility] [address] [place] [address] PCP - General Family Medicine 03/26/19 01/19/22 documented as of this encounter
--- OUTSIDE RECORDS SUMMARY | 2024-06-07 13:41 | XMS_ITS | Encounter Summary ---
Author Organization [facility] [place] [address] Care Team Providers Care Community Engagement Manager Name Role Phone Luis E Narayan MD Primary Care Provider Encounter Details Date Type Department Care Team (Late st Contact Info) Description 07/26/2019 E-Consult Obstetrics [place] [address] Ally Gruber MD [facility] DR OBSTETRICS [place] [address] Hx of dysplasia of cervix, low grade [...] EST Office Visit Internal Medicine at [address] [place] [phone] Daryn Garrett MD [facility] DR LILI [place]O [place] [address] 10/02/2024 1:00 PM EDT Office Visit [place] [phone] Juanpablo Hernandez MD [facility] [place] [address] 01/30/2025 1:30 PM EDT Laboratory Appointment Lab at [facility] Hematology Oncology [address] [place] [phone] 01/30/2025 3:[address] Scan at [place] [phone] Arturo Cordero MD [facility] HEMATOLOGY [place] [address] 01/30/2025 4:15 PM EDT Office Visit Hematology [place] [address] Arturo Cordero MD [facility] DR HEMATOLOGY [place] [address] Scheduled Procedures Name Priority Associated Diagnoses Date/Ti [...] other documented in this encounter Care Teams Community Engagement Manager Relationship Specialty Start Date End Date Luis E Narayan MD [facility] [address] [place] [address] PCP - General Family Medicine 03/26/19 01/19/22 documented as of this encounter
--- OUTSIDE RECORDS SUMMARY | 2024-06-07 13:41 | XMS_ITS | Encounter Summary ---
Author Organization [facility] [place] [address] Care Team Providers Care Bakeshop Cleaner Name Role Phone Luis E Narayan MD Primary Care Provider Reason for Referral * Diagnostic Test (Routine) - Closed Specialty Diagnoses / Procedures Referred By Gonzalez kumari Referred To Contact Cardiology Diagnoses Peripheral edema Coronary artery disease involving [place] coronary artery of [place] heart with angina pectoris H/O heart artery stent Procedures Echocardiogram Transthoracic([facility]) Luis E Narayan MD [facility] [place] [address] [facility] [place] [address] Referral ID Status Reason Start Date Expiration Date V isits Requested Visits Authorized [id number] Closed Specialty Service Requested 06/25/2019 08/23/2019 1 1 Reason for Visit * Diagnostic Test (Routine) - Closed Specialty Diagnoses / Procedures Referred By Gonzalez kumari Referred To Contact Cardiology Diagnoses Peripheral edema Coronary artery disease involving [place] coronary artery of [place] heart with angina pectoris H/O heart artery stent Procedures Echocardiogram Transthoracic([facility]) Luis E Narayan MD [facility] [place] [address] [facility] [place] [address] Referral ID Status Reason Start Date Expiration Date V isits Requested Visits Authorized [id number] Closed Specialty Service Requested 06/25/2019 08/23/2019 1 1 Encounter Details Date Type Department Care Team (Latest Contact Info) Description 06/27/2019 10:19 AM EST - 06/27/2019 1:05 PM EST Hospital Encounter Non-[place] [phone] Luis E Narayan MD [facility] DR LILI WALKER[place] [address] Peripheral edema; Coronary artery disease involving [place] coronary artery of [place] heart with angina pectoris; H/O heart artery [...] 04/09/2019 06/22/2020 fluticasone propionate (FLONASE) 50 mcg/actuation [place], Suspension 50 sprays by Each Nare route [...] 07/14/20102019 ALBUTEROL SULFATE (PROVENTIL HFA IN[facility]) 07/14/2010 03/ 021 documented as of this encounter Plan of Treatment Upcoming Encounters Date Type Department Care Team (Late st Contact Info) Description 06/28/2024 9:30 AM EST Office Visit Internal Medicine at [facility] [address] [place] [address] Daryn Garrett MD [facility] DR LILI [place] [address] 10/02/2024 1:00 PM EDT Office [place] [phone] Juanpablo Hernandez MD [facility] [place] [address] 01/30/2025 1:30 PM EDT Laboratory Appointment Lab at [facility] Hematology Oncology [address] [place] [phone] 01/30/2025 3:[address] [place] [phone] Arturo Cordero MD [facility] DR HEMATOLOGY [place] [address] 01/30/2025 4:15 PM EDT Office Visit Hematology [place] [phone] Arturo Cordero MD [facility] DR HEMATOLOGY [place] [address] Scheduled Procedures Name Priority Associated Diagnoses Date/Ti me EGD, UPPER GI ENDOSCOPY (WRV U 2.09) Irritable bowel syndrome with constipation COLONOSCOPY, DIAGNOSTIC (WRV U 3.26) Irritable bowel syndrome with constipation documented as of this encounter Procedures Procedure Name Priority Date/Time Associated Diagnosis Comments ECHO COMPLETE Routine 06/27/2019 11:38 AM EST Peripheral edema Coronary artery disease involving [place] coronary artery of [place] heart with angina pectoris H/O heart artery stent documented in this encounter Results * ECHO COMPLETE (06/27/2019 11:38 AM EST) EF 71 [facility]ART[facility] SYSTEM Anatomical Region Laterality Modality Other 06/27/2019 Narrative 06/27/2019 11:52 AM EST Procedure: ?Transthoracic Echocardiogram Patient: ?JOSSELINE Tran ?(Age): 1960(58y) Med Rec#: ? [id number] ?Sex: ?F ? Site Loc: ? [facility] ?Ht / Wt: ??158(cm)/101(kg) Pt. Loc: ?Echo Lab ?BSA: ?2.01 Study Date: ?? 06/27/2019 ?Pt. Type: Outpatient Tape: ? Referring: PIOTR Reading: Jeff Barraza ??([id number]) Returned Case Inspector: Sumit Ratliff RDCS Diagnosis: *Edema, unspecified (R60.9) *Atherosclerotic heart disease of [place] coronary artery with unspecified angina pectoris (I25.119) [...] E-wave Vmax ?1 ?m/sec ? MV deceleration [id number] ?msec ? MV A-wave Vmax ?1 ?m/sec [...] ? Mid-Inferior ?Normal ? Mid-Inferoseptal ?Normal ? Turner-Septal ? Normal ? Turner-Anterior ? Normal ? Turner-Lateral ?Normal ? Turner-Inferior ? Normal ? Turner-Tip ?Normal ? This report has been electronically signed by: Jeff Barraza MD ? 06/27/2019 11:51:50 Images reviewed and interpretation verified [facility] Cardiac Ultrasound Laboratory Procedure Note Jeff Barraza MD - 06/27/2019 Procedure: Transthoracic Echocardiogram Patient: JOSSELINE LOMAX(Age): 1960(58y) Med Rec#: [id number] Sex: F Site Loc: [facility] Ht / Wt: 158(cm)/101(kg) Pt. Loc: Echo Lab BSA: 2.01 Study Date: 06/27/2019 Pt. Type: Outpatient Tape: Referring: PIOTR Reading: Jeff Barraza ([id number]) Returned Case Inspector: Sumit Ratliff [facility] Diagnosis: *Edema, unspecified (R60.9) *Atherosclerotic heart disease of [place] coronary artery with unspecified angina pectoris (I25.119) [...] MV E-wave Vmax 1 m/sec MV deceleration [id number] msec MV A-wave Vmax 1 m/sec MV [...] Normal Mid-Posterolateral Normal Mid-Inferior Normal Mid-Inferoseptal Normal Turner-Septal Normal Turner-Anterior Normal Turner-Lateral Normal Turner-Inferior Normal Turner-Tip Normal This report has been electronically signed by: Jeff Barraza MD 06/27/2019 11:51:50 Images reviewed and interpretation verified [facility] Cardiac Ultrasound Laboratory Luis E Narayan MD ECHO ORDERABLES documented in this encounter Visit Diagnoses Diagnosis Peripheral edema Edema Coronary artery disease involving kl[place] coronary artery of [place] heart with angina pectoris H/O heart artery stent x4 LCX Postsurgical percutaneous transluminal coronary angioplasty status documented in this encounter Care Teams Bakeshop Cleaner Relationship Specialty Start Date End Date Luis E Narayan MD [facility] DR LILI W[place]ER[place] [address] PCP - General Family Medicine 03/26/19 01/19/22 documented as of this encounter
--- OUTSIDE RECORDS SUMMARY | 2024-06-07 13:41 | XMS_ITS | Encounter Summary ---
Author Organization Formerly [facility] Address [facility] [place] [address] Care Team Providers Care Atm Mechanic Name Role Phone Luis E Narayan MD Primary Care Provider [phone] Encounter Details Date Type Department Care Team (Late st Contact Info) Description 07/02/2019 Telephone [place] [address] Avila Medina MD [facility] [address] Social History Tobacco Use Types Packs/Day Years [...] Bustos - 07/02/2019 9:51 AM EST PHONE: [phone] Pt is calling after discharge yesterday. She [...] AM EST Office Visit Internal Medicine at [facility] [address] [place] [address] Daryn Garrett MD [facility] DR LILI [place] [address] 10/02/2024 1:00 PM EDT Office Visit [place] [phone] Juanpablo Hernandez MD [facility] [place] [address] 01/30/2025 1:30 PM EDT Laboratory Appointment Lab at [facility] [place] Oncology [address] [place] [phone] 01/30/2025 3:[address] [place] [phone] Arturo Cordero MD [facility] DR [place] [address] 01/30/2025 4:15 PM EDT Office Visit Hematology [place] [address] Arturo Cordero MD [facility] DR [place] [address] Scheduled Procedures Name Priority Associated Diagnoses Date/Ti me EGD, UPPER GI ENDOSCOPY (WRV U 2.09) Irritable bowel syndrome with constipation COLONOSCOPY, DIAGNOSTIC (WRV U 3.26) Irritable bowel syndrome with constipation documented as of this encounter Visit Diagnoses Not on filedocumented in this encounter Care Teams Atm Mechanic Relationship Specialty Start Date End Date Luis E Narayan MD [facility] [address] [place] [address] PCP - General Family Medicine 03/26/19 01/19/22 documented as of this encounter
--- OUTSIDE RECORDS SUMMARY | 2024-06-07 13:41 | XMS_ITS | Encounter Summary ---
Author Organization [facility] Address [facility] [place] [address] Care Team Providers Care Administrator Name Role Phone Luis E Narayan MD Primary Care Provider Reason for Referral * E-Consultation (Routine) - Specialty Diagnoses / Procedures Referred By Gonzalez kumari Referred To Contact Gynecology Diagnoses Abnormal cervical Papanicolaou smear, unspecified abnormal pap finding Family history of uterine cancer Procedures eConsult to Gynecology (Primary Care Use Only) Luis E Narayan MD [facility] [address] [place] [address] Referral ID Status Reason Start Date Expiration Date V isits Requested Visits Authorized [id number] 07/25/2019 07/24/2020 1 1 Encounter Details Date Type Department Care Team (Late st Contact Info) Description 07/25/2019 Orders Only Family Medicine at [facility] [address] [place] [address] Luis E Narayan MD [facility] [address] [place] [address] Abnormal cervical Papanicolaou smear, unspecified abnormal pap [...] Internal Medicine at [facility] [address] [place] [address] Daryn Garrett MD [facility] [address] [address] 10/02/2024 1:00 PM EDT Office [place] [phone] Juanpablo Hernandez MD [facility] [place] [address] 01/30/2025 1:30 PM EDT Laboratory Appointment Lab at [facility] Hematology Oncology [address] [place] [phone] 01/30/2025 3:[address] [place] [address] Arturo Cordero MD [facility] [place] [address] 01/30/2025 4:15 PM EDT Office Visit Hematology [place] [phone] Arturo Cordero MD [facility] [place] [address] Scheduled Procedures Name Priority Associated Diagnoses Date/Ti [...] other documented in this encounter Care Teams Administrator Relationship Specialty Start Date End Date Luis E Narayan MD [facility] [address] [place] [address] PCP - General Family Medicine 03/26/19 01/19/22 documented as of this encounter
--- OUTSIDE RECORDS SUMMARY | 2024-06-07 13:41 | XMS_ITS | Encounter Summary ---
Author Organization Formerly [facility], Later [facility] [place] [address] Care Team Providers Care Garland Maker Name Role Phone Luis E Narayan MD Primary Care Provider Reason for Visit * Reason Comments Procedure Encounter Details Date Type Department Care Team (Latest Contact Info) Description 07/25/2019 2:27 PM EST - 07/25/2019 11:59 PM EST Hospital Encounter [place] [address] Cognitive and behavioral changes Discharge Disposition: Home [...] 04/09/2019 06/22/2020 fluticasone propionate (FLONASE) 50 mcg/actuation [place], Suspension 50 sprays by Each Nare route [...] DROWSY Pre-Procedure Diagnose(s): Cognitive and behavioral changes [facility] Department of Neurology Outpatient EEG [...] 4 ??? fluticasone propionate (FLONASE) 50 mcg/actuation [place], Suspension 50 sprays by Each Nare route [...] channel digitized electroencephalogram was performed in the [facility] Clinical Neurophysiology Laboratory. The 10/20 international system of electrode placement was used and bipolar and referential electrode montages were recorded. In addition to EEG the patient was monitored for EKGand lateral/vertical eye movements. Video was recorded during the session. The duration of the recording was 25 minutes. RECEIVING DISTRIBUTION STATION OPERATOR'S REPORT: Performed by: SR Patient was [...] Nathan Ortiz MD Clinical Neurophysiology Fellow Pager: [phone] 07/26/2019 Neurology Attending I have personally reviewed the EEG, and I agree with the details as written. The above report was formulated in discussion with me at the time of EEG reading, and I agree with it as documented. Nigel Garcia MD Department [place] [address] Pager: [phone], #[phone] Email: [email or web address] documented in this encounter Plan of Treatment Upcoming Encounters Date Type Department Care Team (Late st Contact Info) Description 06/28/2024 9:30 AM EST Office Visit Internal Medicine at [address] [address] Daryn Garrett MD [facility] [address] [address] 10/02/2024 1:00 PM EDT Office [place] [address] Juanpablo Hernandez MD [facility] [place] [address] 01/30/2025 1:30 PM EDT Laboratory Appointment Lab at [facility] Hematology Oncology [address] [place] [phone] 01/30/2025 3:[address] [place] [address] Arturo Cordero MD [facility] [place] [address] 01/30/2025 4:15 PM EDT Office Visit Hematology [place] [address] Arturo Cordero MD [facility] [place] [address] Scheduled Procedures Name Priority Associated Diagnoses Date/Ti [...] Nigel Garcia MD ? 07/28/2019 10:59 PM [facility] Department of Neurology Outpatient EEG [...] ? ? fluticasone propionate (FLONASE) 50 mcg/actuation [place], Suspension 50 sprays by Each Nare route [...] channel digitized electroencephalogram was performed in the [facility] Clinical Neurophysiology Laboratory. The 10/20 international system of electrode placement was used and bipolar and referential electrode montages were recorded. ??In addition to EEG the patient was monitored for EKG and lateral/vertical eye movements. Video was recorded during the session. The duration of the recording was 25 minutes. RECEIVING DISTRIBUTION STATION OPERATOR'S REPORT: Performed by: SR Patient was [...] Nathan Ortiz MD Clinical Neurophysiology Fellow Pager: [phone] 07/26/2019 Neurology Attending I have personally reviewed the EEG, and I agree with the details as written. ?? The above report was formulated in discussion with me at the time of EEG reading, and I agree with it as documented. Nigel Garcia MD [place] [address] Pager: [phone], #[phone] Email: [email or web address] Sumit Pineda MD NEUROLOGY ORDERABLES documented in this encounter Visit Diagnoses Diagnosis Cognitive and behavioral changes Other signs and symptoms involving cognition documented in this encounter Care Teams Garland Maker Relationship Specialty Start Date End Date Luis E Narayan MD [facility] [address] [place] [address] PCP - General Family Medicine 03/26/19 01/19/22 documented as of this encounter
--- OUTSIDE RECORDS SUMMARY | 2024-06-07 13:42 | XMS_ITS | Encounter Summary ---
Author Organization [facility] Address [facility] [address] Care Team Providers Care Hose Maker Name Role Phone Luis E Narayan MD Primary Care Provider Reason for Visit * Reason Onset Date Comments Other 04/18/2019 Encounter Details Date Type Department Care Team (Late st Contact Info) Description 04/18/2019 Telephone Family Medicine at [facility] [address] [place] [address] Shayy Emanuel Other Social History Tobacco Use [...] that the paperwork has been faxed to [phone]. Pt was pleased with this. * Telephone [...] leave a message: y-detailed Ok to send [facility] message: y Offered Appointment: MA/Nurse/Nickel Plant Operator contacted via: Message: y Call: n Pager: n documented in this encounter Plan of Treatment Upcoming Encounters Date Type Department Care Team (Late st Contact Info) Description 06/28/2024 9:30 AM EST Office Visit Internal Medicine at [address] [place] [phone] Daryn Garrett MD [facility] [address] [address] 10/02/2024 1:00 PM EDT Office Visit Ophthalmology at [place] [phone] Juanpablo Hernandez MD [facility] [place] [address] 01/30/2025 1:30 PM EDT Laboratory Appointment Lab at [facility] [place]ology Oncology [address] [place] [phone] 01/30/2025 3:[address] Scan at [place] [phone] Arturo Cordero MD [facility] [place] [address] 01/30/2025 4:15 PM EDT Office Visit Hematology [place] [phone] Arturo Cordero MD [facility] [place] [address] Scheduled Procedures Name Priority Associated Diagnoses Date/Ti me EGD, UPPER GI ENDOSCOPY (WRV U 2.09) Irritable bowel syndrome with constipation COLONOSCOPY, DIAGNOSTIC (WRV U 3.26) Irritable bowel syndrome with constipation documented as of this encounter Visit Diagnoses Not on filedocumented in this encounter Care Teams Hose Maker Relationship Specialty Start Date End Date Luis E Narayan MD [facility] [address] [place] [address] PCP - General Family Medicine 03/26/19 01/19/22 documented as of this encounter
--- OUTSIDE RECORDS SUMMARY | 2024-06-07 13:42 | XMS_ITS | Encounter Summary ---
Author Organization Formerly [facility] [place] [address] Care Team Providers Care Assistant Professor Of Philosophy Name Role Phone Luis E Narayan MD Primary Care Provider [phone] Reason for Referral * Consultation (Routine) - Closed Specialty Diagnoses / Procedures Referred By Gonzalez kumari Referred To Contact Sleep Center Diagnoses TITO (obstructive sleep apnea) Procedures PRG POLYLSOM 6+ YRS SLEEP W CPAP W 4+ ADDL ABHILASH Jhonny Garrett MD [facility] [place] [address] [facility] Sleep Medicine [address] [place] [address] Referral ID Status Reason Start Date Expiration Date V isits Requested Visits Authorized [id number] Closed Test Only 08/02/2019 01/30/2020 1 1 Reason for Visit * Consultation (Routine) - Specialty Diagnoses / Procedures Referred By Contchrissy kumari Referred To Contact Sleep Center Diagnoses TITO on CPAP Procedures PRG POLYSOM 6+ YRS SLEEP W 4+ ADDL ABHILASH Bonny Justin [place] [address] [facility] Sleep Medicine [address] [place] [address] Referral ID Status Reason Start Date Expiration Date Visits Requested Visits Authorized [id number] Specialty Service Requested 04/09/2019 04/08/2020 1 1 Encounter Details Date Type Department Care Team (Late st Contact Info) Description 05/09/2019 8:30 AM EDT Office Visit Sleep Center at [facility] [address] [place] [address] Jhonny Morataya MD [facility] [place] [address] RLS (restless legs syndrome); TITO (obstructive sleep [...] -Dr Morataya will send a prescription to [facility] for a new CPAP and [...] drive. If you get sleepy while driving well puller head and nap. You may resume driving once you feel alert. 12) Read No More Sleepless Nights by Mack Heaton PhD. 13) There are some on-line resources that do require a fee that can be of help. Two credible websites are as follows: http://www.[employer].Keniu https://www.sleepio.com An star used by the [place] is as follows: [employer] Heavy Mobile Equipment Repairer documented in this encounter Progress Notes * [...] as she got lost getting to the [facility]. Sleep Medicine Summary: Sleep Medicine Consultation [...] got sick in January - admitted to [facility]. She was admitted with possible pneumonia she [...] pm Lights out: she might like at [employer] for 10-20 min Latency: asleep quickly Awakenings: [...] time: deferred Questionnaires: Patient-reported scores: [facility] 05/09/2019 [place] [facility] 10 (High Risk) Insomnia Severity Index - Paper [place] of 10 Daytime Symptoms: Upon Awakening: she [...] during the illness over summer, she would well puller head and nap Close calls related to sleepiness: [...] Diagnosis Code ??? Coronary artery disease involving hopi coronary artery of hopi heart with angina pectoris I25.119 ??? Altered [...] Medical History: Diagnosis Date ??? Atherosclerosis of hopi coronary artery of hopi heart with angina pectoris 10/09/2007 History of [...] 3 ??? fluticasone propionate (FLONASE) 50 mcg/actuation [place], Suspension 50 sprays by Each Nare route [...] soda with lunch. Family: lives with a splunk dashboard developer but they have separate bedrooms ROS: CON: [...] Lateral leads Confirmed by MD Herminia, Jak ([id number]) on 02/15/2019 8:07:37 AM Assessment: Ms. Patience [...] results can be sent to them via [facility]. If a home care company is required the following home care company is requested: [facility] Recommendations: 1) Polysomnography in lab to titrate CPAP 2) Driving safety was reviewed with patient. If the patient feels too sleepy to drive he/she knows not to drive. If he/she becomes sleepy while driving he/she will well puller head and nap. 3) Replacement CPAP and supplies [...] [facility] [address] [place] [address] Daryn Garrett MD [facility] [address] [place] [address] 10/02/2024 1:00 PM EDT [place] [address] Juanpablo Hernandez MD [facility] [place] [address] 01/30/2025 1:30 PM EDT Laboratory Appointment Lab at [facility] Hematology Oncology [address] [place] [phone] 01/30/2025 3:[address] [place] [place] [phone] Arturo Cordero MD [facility] [place] [address] 01/30/2025 4:15 PM EDT Office Visit [place]ology [place] [address] Arturo Cordero MD [facility] [place] [address] Scheduled Procedures Name Priority Associated Diagnoses Date/Ti [...] EDT) Hemoglobin 13.5 11.7 - 15.5 gm/dL [facility] Blood specimen (specimen) 05/09/2019 10:19 AM EDT 05/09/2019 12:53 PM EDT Narrative Resulting Agency Comment Spec In Lab Jhonny Morataya MD HEMATOLOGY ORDERABLE S Performing Organization Address [facility]/ZIP Co de Phone Number [facility] [place] [address] * Hematocrit (05/09/2019 10:19 AM EDT) Hematocrit 41.5 35.7 - 45.8 % [facility] Blood specimen (specimen) 05/09/2019 10:19 AM EDT 05/09/2019 12:53 PM EDT Narrative Resulting Agency Comment Spec In Lab Jhonny Morataya MD HEMATOLOGY ORDERABLE S Performing Organization Address [facility] Co de Phone Number [facility] [place] [address] * (ABNORMAL) Iron and TIBC (05/09/2019 10:19 AM EDT) Iron 46 30 - 150 mcg/dL [facility] TIBC 363 250 - 450 mcg/dL [facility] Iron Saturation 13(L) 20 - 50 % [facility] Blood specimen (specimen) 05/09/2019 10:19 AM EDT 05/09/2019 12:54 PM EDT Narrative Resulting Agency Comment Spec In Lab Jhonny Morataya MD CHEMISTRY ORDERABLES Performing Organization Address City/[facility]/ZIP Co de Phone Number [facility] [place] [address] * Ferritin (05/09/2019 10:19 AM EDT) Ferritin 55 30 - 400 ng/mL [facility] Comment: Pediatric reference ranges not verified at [facility], interpret with caution. Reference ranges for females greater than 50 years of age approach values for men, i.e., 30-400 ng/mL. Blood specimen (specimen) 05/09/2019 10:19 AM EDT 05/09/2019 12:53 PM EDT Narrative Resulting Agency Comment Spec In Lab Jhonny Morataya MD CHEMISTRY ORDERABLES [facility] [place] [address] documented in this encounter Visit Diagnoses Diagnosis RLS (restless legs syndrome) Restless legs syndrome (RLS) TITO (obstructive sleep apnea) Obstructive sleep apnea (adult) (pediatric) Chronic insomnia Insomnia, unspecified documented in this encounter Care Teams Assistant Professor Of Philosophy Relationship Specialty Start Date End Date Luis E Narayan MD [facility] [address] [place] [address] PCP - General Family Medicine 03/26/19 01/19/22 documented as of this encounter
--- OUTSIDE RECORDS SUMMARY | 2024-06-07 13:42 | XMS_ITS | Encounter Summary ---
Author Organization [facility] [place] [address] Care Team Providers Care Wrapping Checker Name Role Phone Luis E Narayan MD Primary Care Provider Reason for Referral * Consultation (Routine) - Specialty Diagnoses / Procedures Referred By Gonzalez kumari Referred To Contact Sleep Center Diagnoses TITO on CPAP Procedures PRG POLYSOM 6+ YRS SLEEP W 4+ ADDL ABHILASH Bonny Justin MD [address] [place] [address] [facility] Sleep Medicine [address] [place] [address] Referral ID Status Reason Start Date Expiration Date Visits Requested Visits Authorized [id number] Specialty Service Requested 04/09/2019 04/08/2020 1 1 Reason for Visit * Reason Comments Cognitive Decline NEW PATIENT Encounter Details Date Type Department Care Team (Late st Contact Info) Description 04/09/2019 3:00 PM EDT Office Visit Family Medicine at [facility] [address] [place] [address] Bonny Emanuel MD [address] [place] [address] Immunization due (Primary Dx); Altered mental status, unspecified altered mental status type; COPD, moderate; Atherosclerosis 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 She does accurately report that she had had days of persistent insomnia, eventually admitted for [facility] with disorientation, delirium, inappropriate speech. 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 50+ pack/ yr hx No alcohol One daughter who is a positive support Medications 04/09/19 4658 Medication Sig Taking? melatonin 5 mg Tablet [...] daily. Yes fluticasone propionate (FLONASE) 50 mcg/actuation [place], Suspension 50 sprays by Each Nare route [...] or other inflammatory/inflammatory processes. Results for PATIENCE AMNJARREZ ( ) as of 04/10/2019 22:41 Ref. [...] Symbicort PEFR 350 today 3. Atherosclerosis of akut[place] coronary artery of akut[place] heart with angina pectoris No evidence for unstable angina Simvastatin, metoprolol,ASA - Comprehensive metabolic panel (non-fasting) 4. Immunization due Interested/ agreeble to all today - FluLaval Quadrivalent vaccine, Preservative Free 3YRS+ - PNEUMOCOCCAL CONJUGATE VACCINE 13-VALENT - Tdap vaccine greater than or equal to 7yo IM 5. Other polyneuropathy Likely associated with T2DM, recurrent need for steroids - TSH Wilson - Vitamin B12 - Methylmalonic acid, serum [...] AM EST Office Visit Internal Medicine at [address] [place] [phone] Daryn Garrett MD [facility] DR LILI [place] [address] 10/02/2024 1:00 PM EDT Office Visit [place] [address] Juanpablo Hernandez MD [facility] [address] 01/30/2025 1:30 PM EDT Laboratory Appointment Lab at [facility] [place] [address] [place] [phone] 01/30/2025 3:[address] [place] [address] Arturo Cordero MD [facility] [place] [address] 01/30/2025 4:15 PM EDT Office Visit Hematology [place] [address] Arturo Cordero MD [facility] [place] [address] Scheduled Procedures Name Priority Associated Diagnoses Date/Ti [...] Routine 04/09/2019 5:02 PM EDT Atherosclerosis of ak[place] coronary artery of [place] heart with angina pectoris documented in this encounter Results * TSH Wilson (04/09/2019 5:02 PM EDT) Thyroid Stimulating Hormone 3.57 0.27 - 4.20 mcIU/mL [facility] Blood specimen (specimen) 04/09/2019 5:02 PM EDT 04/09/2019 6:50 PM EDT Narrative Resulting Agency Comment Spec In Lab Bonny Emanuel MD CHEMISTRY ORDERABLES [facility] [place] [address] * Comprehensive metabolic panel (non-fasting) (04/09/2019 5:02 [...] of body mass or the acutely ill. [email or web address] [place] eGFR 92 >=60 mL/min/1. 73 m?? [facility] Comment: The eGFR was calculated using the CKD-EPI equation. As with all creatinine based estimates of kidney function, eGFR values calculated with the CKD-EPI equation are not accurate in patients with acute kidney failure, extremes of body mass or the acutely ill. [email or web address] Blood specimen (specimen) 04/09/2019 5:02 PM EDT 04/09/2019 6:50 PM EDT Narrative Resulting Agency Comment Spec In Lab Bonny Emanuel MD CHEMISTRY ORDERABLES Performing Organization Address City/State/[facility] Co de Phone Number [facility] [place] [address] * Vitamin B12 (04/09/2019 5:02 PM EDT) Vitamin B12 820 232 - 1,245 pg/mL [facility] Blood specimen (specimen) 04/09/2019 5:02 PM EDT 04/09/2019 6:50 PM EDT Narrative Resulting Agency Comment Spec In Lab Bonny Emanuel MD CHEMISTRY ORDERABLES Performing Organization Address [facility] Co de Phone Number [facility] [place] [address] * Methylmalonic acid, serum (04/09/2019 5:02 PM EDT) Methylmalonic Acid (NOVEMBER) 0.20 <=0.40 nmol/mL [facility] Comment: ADDITIONAL INFORMATION This test was developed and its performance characteristics determined by [facility] in a manner consistent with CLIA requirements. This test has not been cleared or approved by the U.S. Food and Drug Administration. Test Performed by: [facility] - [address] [address] [employer]ilingual [employer]: Jose G Jefferson M.D. Ph.D.; CLIA# [id number] Blood specimen (specimen) 04/09/2019 5:02 PM EDT 04/10/2019 8:35 AM EDT Narrative Resulting Agency Comment Spec In Lab Bonny Emanuel MD LAB SEND OUT ORDERAB LES Performing Organization Address [facility] Co de Phone Number [facility] [place] [address] documented in this encounter Visit Diagnoses Diagnosis Immunization due- Primary Need for prophylactic vaccination and inoculation against unspecified single disease Altered mental status, unspecified altered mental status type COPD, moderate Chronic airway obstruction, not elsewhere classified Atherosclerosis of akut[place] coronary artery of akut[place] heart with angina pectoris Other polyneuropathy TITO on CPAP Obstructive sleep apnea (adult) (pediatric) Acute recurrent maxillary sinusitis Acute maxillary sinusitis Type 2 diabetes mellitus without complication, without long-term current use of insulin documented in this encounter Care Teams Wrapping Checker Relationship Specialty Start Date End Date Luis E Narayan MD [facility] [address] [place] [address] PCP - General Family Medicine 03/26/19 01/19/22 documented as of this encounter
--- OUTSIDE RECORDS SUMMARY | 2024-06-07 13:42 | XMS_ITS | Encounter Summary ---
Author Organization [facility] [place] [address] Care Team Providers Care Forming Machine Upkeep Mechanic Name Role Phone Luis E Narayan MD Primary Care Provider [phone]- [phone] Reason for Visit * Reason Onset Date Comments New Medication Request 06/13/2019 Encounter Details Date Type Department Care Team (Late st Contact Info) Description 06/13/2019 Telephone Family Medicine at [facility] [address] [place] [address] George Lorenzo New Medication Request Social History [...] Name & Location: [id number] [address] Ask caller their first and last [...] at [facility] [address] [place] [address] Daryn Garrett MD [facility] [address] LIL[address] [place] [address] 10/02/2024 1:00 PM EDT Office [place] [phone] Juanpablo Hernandez MD [facility] [place] [address] 01/30/2025 1:30 PM EDT Laboratory Appointment Lab at [facility] [address] [place] [phone] 01/30/2025 3:[address] [place] [phone] Arturo Cordero MD [facility] DR [place] [address] 01/30/2025 4:15 PM EDT Office Visit Hematology [place] [address] Arturo Cordero MD [facility] DR [place] [address] Scheduled Procedures Name Priority Associated Diagnoses Date/Ti me EGD, UPPER GI ENDOSCOPY (WRV U 2.09) Irritable bowel syndrome with constipation COLONOSCOPY, DIAGNOSTIC (WRV U 3.26) Irritable bowel syndrome with constipation documented as of this encounter Visit Diagnoses Not on filedocumented in this encounter Care Teams Forming Machine Upkeep Mechanic Relationship Specialty Start Date End Date Luis E Narayan MD [facility] [address] [place] [address] PCP - General Family Medicine 03/26/19 01/19/22 documented as of this encounter
--- OUTSIDE RECORDS SUMMARY | 2024-06-07 13:42 | XMS_ITS | Encounter Summary ---
Author Organization [facility] Address [facility] [place] [address] Care Team Providers Care Wide Piece Goods Inspector Name Role Phone Luis E Narayan MD Primary Care Provider [phone]- [phone] Encounter Details Date Type Department Care Team (Late st Contact Info) Description 04/30/2019 [place] [phone] Ru Leon, RN Social History Tobacco Use [...] at [facility] [address] [place] [address] Daryn Garrett MD [facility] [address] LILI [place] [address] 10/02/2024 1:00 PM EDT Office Visit Ophthalmology at [place] [phone] Juanpablo Hernanedz MD [facility] [place] [place] [address] 01/30/2025 1:30 PM EDT Laboratory Appointment [place] [facility] [place] [address] [place] [phone] 01/30/2025 3:[address] Scan at [address] Arturo Cordero MD [facility] DR HEMATOLOGY [place] [address] 01/30/2025 4:15 PM EDT Office Visit Hematology [place] [address] Arturo Cordero MD [facility] DR [place] [address] Scheduled Procedures Name Priority Associated Diagnoses Date/Ti me EGD, UPPER GI ENDOSCOPY (WRV U 2.09) Irritable bowel syndrome with constipation COLONOSCOPY, DIAGNOSTIC (WRV U 3.26) Irritable bowel syndrome with constipation documented as of this encounter Visit Diagnoses Not on filedocumented in this encounter Care Teams Wide Piece Goods Inspector Relationship Specialty Start Date End Date Luis E Narayan MD [facility] [address] [place] [address] PCP - General Family Medicine 03/26/19 01/19/22 documented as of this encounter
--- OUTSIDE RECORDS SUMMARY | 2024-06-07 13:42 | XMS_ITS | Encounter Summary ---
Author Organization [place] [address] Care Team Providers Care Slubber Operator Name Role Phone Luis E Narayan MD Primary Care Provider Reason for Referral * Psychiatric (Routine) - Specialty Diagnoses / Procedures Referred By Gonzalez kumari Referred To Contact Psychiatry Diagnoses Cognitive and behavioral changes Procedures PRO NEUROPSYCHOLOGICAL TEST EVAL PHYS/QHP 1ST HOUR PRO NEUROPSYCHOLOGICAL TEST EVAL PHYS/QHP EA ADDL HR TC PSYCL/NRPSYCL HEALTHCARE BUSINESS ANALYST 2+ TEST 1ST 30 MIN TC PSYCL/NRPSYCL HEALTHCARE BUSINESS ANALYST 2+ TEST EA ADDL 30 MIN Amy Aguiar MD [facility] [place] [address] [facility] Psych Neuro [address] [place] [address] Referral ID Status Reason Start Date Expiration Date V isits Requested Visits Authorized [id number] Consult, Test & Treat 05/02/2019 05/01/2021 1 1 Reason for Visit * Consultation (Urgent) - Closed Specialty Diagnoses / Procedures Referred By Gonzalez kumari Referred To Contact Neurology Diagnoses Generalized weakness Elpidio Pinedo IV, MD [facility] [place] [address] [facility] Neurology [address] [place] [phone] Referral ID Status Reason Start Date Expiration Date V isits Requested Visits Authorized [id number] Closed Consult, Test & Treat 03/26/2019 03/25/2020 1 1 Encounter Details Date Type Department Care Team (Late st Contact Info) Description 05/02/2019 9:00 AM EDT Procedure [place] [phone] Sumit Pineda MD [facility] [place] [address] Amy Aguiar MD [facility] [place] [address] Cognitive and behavioral changes Social History Tobacco [...] sentences. Patient states she was taken to [facility] and it was initially thought that she is having a clot in her body and thus underwent echocardiograms, ultrasounds of her lower extremities and all were negative. 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 Patient states she [facility] stop steroids and gave her breathing treatments. 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 She states her [...] Medical History: Diagnosis Date ??? Atherosclerosis of [place] coronary artery of [place] heart with angina pectoris 10/09/2007 History of [...] 3 ??? fluticasone propionate (FLONASE) 50 mcg/actuation [place], Suspension 50 sprays by Each Nare route [...] and lateral aspects of feet Vibration via BigTwist tuning fork (1-8): reduced at big toes [...] Edwin Aguiar MD Clinical Neurophysiology Fellow Pager: [phone] 05/02/2019 CC: Luis E Narayan MD, Luis [...] Office Visit Internal Medicine at [place] [address] [place] [address] Daryn Garrett MD [facility] [address] LILI [place] [address] 10/02/2024 1:00 PM EDT Office [place] [address] Juanpablo Hernandez MD [facility] [place] [address] 01/30/2025 1:30 PM EDT Laboratory Appointment Lab at [facility] [place]emat[place] Oncology [address] [place] [phone] 01/30/2025 3:[address] [place] [phone] Arturo Cordero MD [facility] [address] [place] [address] 01/30/2025 4:15 PM EDT Office Visit Hematology [place] [phone] Arturo Cordero MD [facility] [address] [place] [address] Scheduled Procedures Name Priority Associated Diagnoses Date/Ti [...] Garcia MD ? 07/28/2019 10:59 PM [facility] Department of Neurology Outpatient EEG [...] ? ? fluticasone propionate (FLONASE) 50 mcg/actuation [place], Suspension 50 sprays by Each Nare route [...] channel digitized electroencephalogram was performed in the [facility] Clinical Neurophysiology Laboratory. The 10/20 international system of electrode placement was used and bipolar and referential electrode montages were recorded. ??In addition to EEG the patient was monitored for EKG and lateral/vertical eye movements. Video was recorded during the session. The duration of the recording was 25 minutes. CASING INSPECTOR'S REPORT: Performed by: SR Patient was not [...] Nathan Ortiz MD Clinical Neurophysiology Fellow Pager: [phone] 07/26/2019 Neurology Attending I have personally reviewed the EEG, and I agree with the details as written. ?? The above report was formulated in discussion with me at the time of EEG reading, and I agree with it as documented. Nigel Garcia [place] [address] Pager: [phone], #[phone] Email: [email or web address] Sumit Pineda MD NEUROLOGY ORDERABLES * Vitamin B1, whole blood (05/02/2019 11:15 AM EDT) [facility] Vit B1 Lvl Wb (NOVEMBER) 173 70 - 180 nmol/L [facility] Comment: ADDITIONAL INFORMATION This test was developed and its performance characteristics determined by [facility] in a manner consistent with CLIA requirements. This test has not been cleared or approved by the U.S. Food and Drug Administration. Test Performed by: [facility] [address] [place] [address] Shipping Clerk/Admin: Jose G Jefferson M.D. Ph.D.; CLIA# [id number] Blood specimen (specimen) 05/02/2019 11:15 AM EDT 05/02/2019 1:43 PM EDT Narrative Resulting Agency Comment Spec In Lab Sumit Pineda MD LAB SEND OUT ORDERAB LES [facility] [place] [id number] * Protein Electrophoresis, serum (05/02/2019 11:15 AM EDT) [facility] Total Prot Electrophoresis 6.5 6.1 - 8.0 gm/dL [facility] Albumin Electrophoresis 4.17 3.60 - 6.00 gm/dL [facility] Alpha 1 Globulin 0.19 0.10 - 0.30 gm/dL [facility] Alpha 2 Globulin 0.65 0.40 - 0.90 gm/dL [facility] Beta Globulin 0.71 0.50 - 1.00 gm/dL [facility] Gamma Globulin 0.79 0.50 - 1.30 gm/dL [facility] M1 Band None Detected None Detected [facility] Blood specimen (specimen) 05/02/2019 11:15 AM EDT 05/02/2019 11:24 AM EDT Narrative Resulting Agency Comment Spec In Lab Sumit Pineda MD CHEMISTRY ORDERABLES [facility] [place] [address] documented in this encounter Visit Diagnoses Diagnosis Cognitive and behavioral changes Other signs and symptoms involving cognition Cognitive and behavioral changes Other signs and symptoms involving cognition documented in this encounter Care Teams Slubber Operator Relationship Specialty Start Date End Date Luis E Narayan MD [facility] [address] LIL[address] [place] [address] PCP - General Family Medicine 03/26/19 01/19/22 documented as of this encounter
--- OUTSIDE RECORDS SUMMARY | 2024-06-07 13:42 | XMS_ITS | Encounter Summary ---
Author Organization [facility] Address [facility] [place] [address] Care Team Providers Care Behavioral Health Professional Name Role Phone Luis E Narayan MD Primary Care Provider +1- [phone] Reason for Visit * Reason Onset Date Comments Referral 06/03/2019 Encounter Details Date Type Department Care Team (Late st Contact Info) Description 06/03/2019 Telephone Family Medicine at [facility] [address] [place] [address] Yue Kwok Referral Social History [...] is requesting phone calls for this patient's Sheep Farm Manager Pharmacist referral. documented in this encounter Plan of Treatment Upcoming Encounters Date Type Department Care Team (Late st Contact Info) Description 06/28/2024 9:30 AM EST Office Visit Internal Medicine at [facility] [address] [place] [address] Daryn Garrett MD [facility] [address] LILI [place] [address] 10/02/2024 1:00 PM EDT Office [place] [address] Juanpablo Hernandez MD [facility] [place] [address] 01/30/2025 1:30 PM EDT Laboratory Appointment Lab at [facility] [place] [address] [place] [phone] 01/30/2025 3:[address] [place] [address] Arturo Cordero MD [facility] DR HEMATOLOGY [place] [address] 01/30/2025 4:15 PM EDT Office Visit Hematology [place] [phone] Arturo Cordero MD [facility] DR [place] [address] Scheduled Procedures Name Priority Associated Diagnoses Date/Ti me EGD, UPPER GI ENDOSCOPY (WRV U 2.09) Irritable bowel syndrome with constipation COLONOSCOPY, DIAGNOSTIC (WRV U 3.26) Irritable bowel syndrome with constipation documented as of this encounter Visit Diagnoses Not on filedocumented in this encounter Care Teams Behavioral Health Professional Relationship Specialty Start Date End Date Luis E Narayan MD [facility] DR LIL[address] [place] [address] PCP - General Family Medicine 03/26/19 01/19/22 documented as of this encounter
--- OUTSIDE RECORDS SUMMARY | 2024-06-07 13:42 | XMS_ITS | Encounter Summary ---
Author Organization [facility] [place] [address] Care Team Providers Care News Intern Name Role Phone Luis E Narayan MD Primary Care Provider Reason for Visit * Reason Onset Date Comments Questions 06/13/2019 Encounter Details Date Type Department Care Team (Late st Contact Info) Description 06/13/2019 Telephone Family Medicine at [facility] [address] [place] [phone] George Lorenzo Questions Social History Tobacco Use [...] help schedule EEG. Please transfer back to membership secretary, thank you. * Telephone Encounter - Shannon Ward RN - 06/24/2019 1:11 PM EST Voicemail msg left on identified phone to call clinic to discuss. Noted EEG ordered 05/02/19 and 05/10/19. Not scheduled yet. Note forwarded to membership secretary to assist in scheduling. * Telephone [...] send - message: no Offered Appointment: n/a MA/Nurse/Boutte contacted via: Message: y Call: n Pager: n documented in this encounter Plan of Treatment Upcoming Encounters Date Type Department Care Team (Late st Contact Info) Description 06/28/2024 9:30 AM EST Office Visit Internal Medicine at [address] [address] Daryn Garrett MD [facility] [address] LILI [place] [address] 10/02/2024 1:00 PM EDT Office [place] [phone] Juanpablo Hernandez MD [facility] [place] [address] 01/30/2025 1:30 PM EDT Laboratory Appointment Lab at [facility] [place] Hematology Oncology [address] [place] [phone] 01/30/2025 3:[address] [place] [address] Arturo Cordero MD [facility] [place] [address] 01/30/2025 4:15 PM EDT Office Visit Hematology [place] [address] Arturo Cordero MD [facility] [place] [address] Scheduled Procedures Name Priority Associated Diagnoses Date/Ti me EGD, UPPER GI ENDOSCOPY (WRV U 2.09) Irritable bowel syndrome with constipation COLONOSCOPY, DIAGNOSTIC (WRV U 3.26) Irritable bowel syndrome with constipation documented as of this encounter Visit Diagnoses Not on filedocumented in this encounter Care Teams News Intern Relationship Specialty Start Date End Date Luis E Narayan MD [facility] [address] [place] [address] PCP - General Family Medicine 03/26/19 01/19/22 documented as of this encounter
--- OUTSIDE RECORDS SUMMARY | 2024-06-07 13:42 | XMS_ITS | Encounter Summary ---
Author Organization [facility] [place] [address] Care Team Providers Care Auto Bench Mechanic Name Role Phone Luis E Narayan MD Primary Care Provider [phone] Reason for Visit * Consultation (Routine) - Closed Specialty Diagnoses / Procedures Referred By Gonzalez kumari Referred To Contact Endocrinology Diagnoses Type 2 diabetes mellitus with hyperglycemia, without long-term current use of insulin Luis E Narayan MD [facility] DR LILI [place] [address] [facility] Endocrinology [address] [place] [address] Referral ID Status Reason Start Date Expiration Date V isits Requested Visits Authorized [id number] Closed Consult, Test & Treat 05/10/2019 05/09/2020 1 1 Encounter Details Date Type Department Care Team (Late st Contact Info) Description 05/27/2019 4:00 PM EST Office [place] [phone] [facility] [place] [address] Type 2 diabetes mellitus with hyperglycemia, without [...] Breakfast ideas that include more protein: -1/2 Japanese Muffin with 1 Tbsp peanut butter and apple slices from 1 whole apple. If apples are too hard to chew with dental issues sub 1/2 cup unsweetened apple sauce. -Occitan yogurt or light yogurt that is 15 grams of carb or less per serving (look at total carbs) -store [employer] chopper or [employer] lebanese yogurt or light yogurt, Rene Storyko's TripleZero [...] his past year she was hospitalized at [facility] on given Prednisone. Her blood sugars were high due to the steroid medication and during the brief hospital stay she was given meal associated insulin. Otherwise she has not been on meal associated insulin. Also reports another hospital stay at [facility] [place] [place] where she was delirious and she thinks [...] cm Height in inches 5' 2.75 Weight (Japanese) 228 lbs 8 oz Weight (Metric) 103.6 [...] mouth daily. fluticasone propionate (FLONASE) 50 mcg/actuation [place], Suspension 50 sprays by Each Nare route [...] Breakfast ideas that include more protein: -1/2 Japanese Muffin with 1 Tbsp peanut butter and apple slices from 1 whole apple. If apples are too hard to chew with dental issues sub 1/2 cup unsweetened apple sauce. -Occitan yogurt or light yogurt that is 15 grams of carb or less per serving (look at total carbs) -store Kaseya roger chopper or [employer] lebanese yogurt or light yogurt, Rene Story's TripleZero [...] EST Office Visit Internal Medicine at [address] [phone] Daryn Garrett MD [facility] DR LILI [place] [address] 10/02/2024 1:00 PM EDT Office [place] [phone] Juanpablo Hernandez MD [facility] [place] [address] 01/30/2025 1:30 PM EDT Laboratory Appointment Lab at [facility] Hematology Oncology [address] [place] [phone] 01/30/2025 3:[address] [place] [phone] Arturo Cordero MD [facility] DR [place] [address] 01/30/2025 4:15 PM EDT Office Visit Hematology [place] [address] Arturo Cordero MD [facility] DR [place] [address] Scheduled Procedures Name Priority Associated Diagnoses Date/Ti [...] insulin documented in this encounter Care Teams Auto Bench Mechanic Relationship Specialty Start Date End Date Luis E Narayan MD [facility] [address] [place] [address] PCP - General Family Medicine 03/26/19 01/19/22 documented as of this encounter
--- OUTSIDE RECORDS SUMMARY | 2024-06-07 13:42 | XMS_ITS | Encounter Summary ---
Author Organization [facility] [place] [address] Care Team Providers Care Engine Specialist Name Role Phone Luis E Narayan MD Primary Care Provider [phone] Reason for Referral * Consultation (Routine) - Closed Specialty Diagnoses / Procedures Referred By Gonzalez kumari Referred To Contact Endocrinology Diagnoses Type 2 diabetes mellitus with hyperglycemia, without long-term current use of insulin Luis E Narayan MD [facility] [place] [address] [facility] Endocrinology [address] [place] [phone] Referral ID Status Reason Start Date Expiration Date V isits Requested Visits Authorized [id number] Closed Consult, Test & Treat 05/10/2019 05/09/2020 1 1 * Psychiatric (Routine) - Duplicate Referral Specialty Diagnoses / Procedures Referred By Gonzalez kumari Referred To Contact Psychiatry Diagnoses Altered mental status, unspecified altered mental status type Abnormal MRI of head Luis E Narayan MD [facility] [place] [address] [facility] Psychiatry [address] [place] [phone] Referral ID Status Reason Start Date Expiration Date Visits Requested Visits Authorized [id number] Duplicate Referral Consult, Test & Treat 05/10/2019 05/09/2020 1 1 Reason for Visit * Reason Comments Follow-up Encounter Details Date Type Department Care Team (Late st Contact Info) Description 05/10/2019 1:00 PM EDT Office Visit Family Medicine at [facility] [address] [place] [phone] Luis E Narayan MD [facility] [place] [address] Altered mental status, unspecified altered mental status [...] some of the symptoms. She did see [facility] Neurology for nerve conduction testing, and they [...] EST Office Visit Internal Medicine at [address] [place] [phone] Daryn Garrett MD [facility] DR LILI WALKER [place] [address] 10/02/2024 1:00 PM EDT Office [place] [phone] Juanpablo Hernandez MD [facility] [place] [address] 01/30/2025 1:30 PM EDT Laboratory Appointment Lab at [facility] Hematology Oncology [address] [place] [phone] 01/30/2025 3:[address] [place] [phone] Arturo Cordero MD [facility] HEMATOLOGY [place] [address] 01/30/2025 4:15 PM EDT Office Visit Hematology and Oncology at [facility] [place] [address] Arturo Cordero MD [facility] DR HEMATOLOGY [place] [address] Scheduled Procedures Name Priority Associated Diagnoses Date/Ti [...] facility documented in this encounter Care Teams Engine Specialist Relationship Specialty Start Date End Date Luis E Narayan MD [facility] [address] [place] [address] PCP - General Family Medicine 03/26/19 01/19/22 documented as of this encounter
--- OUTSIDE RECORDS SUMMARY | 2024-06-07 13:42 | XMS_ITS | Encounter Summary ---
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 H/O heart artery stent Procedures Echocardiogram Transthoracic([facility]) Luis E Narayan MD [facility] [address] LIL[address] [place] [address] [facility] [place] [address] Referral ID Status Reason Start Date Expiration Date V isits Requested Visits Authorized [id number] Closed Specialty Service Requested 06/25/2019 08/23/2019 1 1 Reason for Visit * Reason Comments Follow-up Encounter Details Date Type Department Care Team (Late st Contact Info) Description 06/21/2019 1:00 PM EST Office Visit Family Medicine at [facility] [address] [place] [address] Luis E Narayan MD [facility] DR LIL[place] [address] Type 2 diabetes mellitus without long-term current use of insulin; Healthcare maintenance; Peripheral edema; Coronary artery disease involving united keetoowah coronary artery of united [place] heart with angina pectoris; H/O heart artery [...] never scheduled 4) Cardiac - has hx [place], stent x4 - has been having worsening [...] Assessment/Plan 30 minutes of this 45 minute [id number] visit were spent in discussion on the following topics: Diagnoses and all orders for this visit: Type 2 diabetes mellitus without long-term current use of insulin, uncontrolled last HA1c check butsuspect repeat today will be much better - U Albumin/Cre Ratio - Hemoglobin A1c; Future; Expected date: 06/21/2019 Healthcare maintenance - HIV Screen, 4th Generation ([facility]/CGP/APD); Future; Expected date: 06/21/2019 - Hepatitis C Antibody; Future; Expected date: 06/21/2019 Peripheral edema, CAD, heart artery stent x4 LCX - Echocardiogram Transthoracic([facility]); Future; Expected date: 06/21/2019 Will try to get this prior to surgery 06/28. Bipolar affective disorder in remission - refill lamoTRIgine (LAMICTAL) 25 mg Tablet; Take 3 tablets by mouth daily. Will also have Dermatology Teacher check on EEG. Neurology in Jul as scheduled. Follow up with me in 4-6 weeks. documented in this encounter Plan of Treatment Upcoming Encounters Date Type Department Care Team (Late st Contact Info) Description 06/28/2024 9:30 AM EST Office Visit Internal Medicine at [facility] [address] [place] [phone] Daryn Garrett MD [facility] DR LILI [place] [address] 10/02/2024 1:00 PM EDT Office [place] [phone] Juanpablo Hernandez MD [facility] [place] [address] 01/30/2025 1:30 PM EDT Laboratory Appointment Lab at [facility] Hematology Oncology [address] [place] [phone] 01/30/2025 3:[address] [place] [address] Arturo Cordero MD [facility] DR [place] [address] 01/30/2025 4:15 PM EDT Office Visit Hematology [place] [address] Arturo Cordero MD [facility] DR [place] [address] Scheduled Procedures Name Priority Associated Diagnoses Date/Ti [...] COMPLETE (06/27/2019 11:38 AM EST) EF 71 [employer] Anatomical Region Laterality Modality Other 06/27/2019 Narrative 06/27/2019 11:52 AM EST Procedure: ?Transthoracic Echocardiogram Patient: ?JOSSELINE MORIN [place] ?(Age): 1960(58y) Med Rec#: ? [id number] ?Sex: ?F ? Site Loc: ? [facility] ?Ht / Wt: ??158(cm)/101(kg) Pt. Loc: ?Echo Lab ?BSA: ?2.01 Study Date: ?? 06/27/2019 ?Pt. Type: Outpatient Tape: ? Referring: PIOTR [place]: Jeff Barraza ??([id number]) Ice Cream Scooper: Sumit Ratliff, [facility] Diagnosis: *Edema, unspecified (R60.9) *Atherosclerotic heart disease of united keetoowah coronary artery with unspecified angina pectoris (I25.119) [...] E-wave Vmax ?1 ?m/sec ? MV deceleration [id number] ?msec ? MV A-wave Vmax ?1 ?m/sec [...] ? Mid-Inferior ?Normal ? Mid-Inferoseptal ?Normal ? [place]-Septal ? Normal ? [place]-Anterior ? Normal ? [place]-Lateral ?Normal ? [place]-Inferior ? Normal ? [place]-Tip ?Normal ? This report has been electronically signed by: Jeff Barraza MD ? 06/27/2019 11:51:50 Images reviewed and interpretation verified [facility] Procedure Note Jeff Barraza MD - 06/27/2019 Procedure: Transthoracic Echocardiogram Patient: JOSSELINE LOMAX(Age): 1960(58y) Med Rec#: [id number] Sex: F Site Loc: [facility] Ht / Wt: 158(cm)/101(kg) Pt. Loc: Echo Lab BSA: 2.01 Study Date: 06/27/2019 Pt. Type: Outpatient Tape: Referring: PIOTR [place]: Jeff Barraza ([id number]) Ice Cream Scooper: Sumit Ratliff [facility] Diagnosis: *Edema, unspecified (R60.9) *Atherosclerotic heart disease of united [place] coronary artery with unspecified angina pectoris (I25.119) [...] MV E-wave Vmax 1 m/sec MV deceleration [id number] msec MV A-wave Vmax 1 m/sec MV [...] Normal Mid-Posterolateral Normal Mid-Inferior Normal Mid-Inferoseptal Normal [place]-Septal Normal [place]-Anterior Normal [place]-Lateral Normal [place]-Inferior Normal [place]-Tip Normal This report has been electronically signed by: Jeff Barraza MD 06/27/2019 11:51:50 Images reviewed and interpretation verified [facility] Luis E Narayan MD ECHO ORDERABLES * (ABNORMAL) Hemoglobin A1c (06/21/2019 2:09 PM EST) Hemoglobin A1c 7.2(H) 4.3 - 5.6 % [facility] Comment: Reference Range: 4.3 - [...] Mellitus, Diabetes Care 2013; 36: Suppl. 1, B77-73 Estimated Average Glucose 161 mg/dL [facility] Comment: eAG equivalents for HbA1c [...] into estimated average glucose values. ??Diabetes Care 2008:31(8):1381-2198. Blood specimen (specimen) 06/21/2019 2:09 PM EST 06/21/2019 5:58 PM EST Narrative Resulting Agency Comment Spec In Lab Luis E Narayan MD CHEMISTRY ORDERABLE S [facility] [place] [address] * Hepatitis C Antibody (06/21/2019 2:09 PM EST) Hepatitis C Antibody Negative Negative [facility] Blood specimen (specimen) 06/21/2019 2:09 PM EST 06/21/2019 6:01 PM EST Narrative Resulting Agency Comment Spec In Lab Luis E Narayan MD CHEMISTRY ORDERABLE S Performing Organization Address City/[facility]/ZIP Co de Phone Number [facility] [place] [address] * HIV Screen, 4th Generation ([facility]/CGP/APD) (06/21/2019 2:09 PM EST) Pathologist [facility] HIV Ab/Ag Screen Negative Negative [facility] Comment: This 4th Generation HIV [...] MD CHEMISTRY ORDERABLE S Performing Organization Address [facility]/ZIP Co de Phone Number [facility] [place] [place] [address] * Urine Hold (06/21/2019 1:30 PM EST) Hold, Urine Sample in lab. [facility] Urine specimen (specimen) Urine / Unknown 06/21/2019 1:30 PM EST 06/21/2019 4:25 PM EST Luis E Narayan MD URINE ORDERABLES Performing Organization Address City/[facility]/ZIP Co de Phone Number [facility] [place] [address] * U Albumin/Cre Ratio (06/21/2019 1:30 PM EST) [facility] Albumin / Creatinin Ratio, Urine Not Calculated 0 - 29 mcg/mg Cr [facility] Comment: Reference Ranges: <30 mcg/mg: [...] 2, 357? 362 Albumin, Urine <3.0 mg/L [facility] Creatinine, Urine 82 mg/dL [facility] Urine specimen (specimen) 06/21/2019 1:30 PM EST 06/21/2019 4:27 PM EST Narrative Resulting Agency Comment Spec In Lab Luis E Narayan MD URINE ORDERABLES [facility] [place] [address] documented in this encounter Visit Diagnoses Diagnosis Type 2 diabetes mellitus without long-term current use of insulin Healthcare maintenance Routine general medical examination at a health care facility Peripheral edema Edema Coronary artery disease involving united [place] coronary artery of [place] heart with angina pectoris H/O heart artery stent x4 LCX Postsurgical percutaneous transluminal coronary angioplasty status Bipolar affective disorder in remission Peripheral edema Edema Coronary artery disease involving united [place] coronary artery of united [place] heart with angina pectoris H/O heart artery stent x4 LCX Postsurgical percutaneous transluminal coronary angioplasty status documented in this encounter Care Teams Tile Erector Relationship Specialty Start Date End Date Luis E Narayan MD [facility] DR LILI AZEVED[place] [address] PCP - General Family Medicine 03/26/19 01/19/22 documented as of this encounter
--- OUTSIDE RECORDS SUMMARY | 2024-06-07 13:42 | XMS_ITS | Encounter Summary ---
[place] [address] Care Team Providers Care Animal Killer Name Role Phone Luis E Narayan MD Primary Care Provider [phone] Encounter Details Date Type Department Care Team (Late st Contact Info) Description 06/21/2019 11:40 AM EST Clinical [place] [address] Renal mass Social History Tobacco Use Types [...] EST Office Visit Internal Medicine at [address] [phone] Daryn Garrett MD [facility] DR LILI [place] [address] 10/02/2024 1:00 PM EDT Office [place] [phone] Juanpablo Hernandez MD [facility] [place] [address] 01/30/2025 1:30 PM EDT Laboratory Appointment Lab [place] [facility] [place] [address] [place] [phone] 01/30/2025 3:[address] [place] [phone] Arturo Cordero MD [facility] [place] [address] 01/30/2025 4:15 PM EDT Office Visit [place] [phone] Arturo Cordero MD [facility] [place] [address] Scheduled Procedures Name Priority Associated Diagnoses Date/Ti [...] tract infection, submit a new specimen. (A) [facility] Urine specimen obtained by clean catch procedure (specimen) 06/21/2019 12:06 PM EST 06/21/2019 12:28 PM EST Narrative Resulting Agency Comment Spec In Lab Avila Medina MD MICROBIOLOGY - GENER AL ORDERABLES [facility] [place] [address] * ABORH Recheck Status (06/21/2019 12:02 PM EST) [facility] Recheck Order Order Placed [facility] ABORH Type Recheck Complete [facility] Blood specimen (specimen) 06/21/2019 12:02 PM EST 06/21/2019 12:09 PM EST Narrative Resulting Agency Comment Spec In Lab Avila Medina MD BLOOD BANK LAB ORDER SHYLA [facility] [place] [address] * Antibody screen (06/21/2019 12:02 PM EST) Ab Screen Interp Negative [facility] Expires at [id number] on: 07/01/2019 [facility] Blood specimen (specimen) 06/21/2019 12:02 PM EST 06/21/2019 12:09 PM EST Narrative Resulting Agency Comment Spec In Lab Avila Medina MD BLOOD BANK LAB ORDER SHYLA Performing Organization Address City/[facility]/ZIP Co de Phone Number [facility] [place] [address] * ABO/Rh Typing (06/21/2019 12:02 PM EST) ABORH Type O Pos [facility] Blood specimen (specimen) 06/21/2019 12:02 PM EST 06/21/2019 12:09 PM EST Narrative Resulting Agency Comment Spec In Lab Avila Medina MD BLOOD BANK LAB ORDER SHYLA [facility] [place] [address] * (ABNORMAL) Differential, Automated (06/21/2019 12:02 PM EST) Neutrophil % 56.8 % [facility] Neutrophil Absolute 4.68 1.70 - 6.10 x10(3)/[facility] Lymph % 30.3 % [facility] Lymphocytes Abs 2.5 0.9 - 3.2 x10(3)/[facility] Monocyte % 5.2 % [facility] Monocyte Abs 0.4 0.3 - 0.9 x10(3)/[facility] Eos % 6.6 % [facility] Eosinophils Abs 0.5(H) 0.0 - 0.4 x10(3)/[facility] Basophil % 0.7 % [facility] Baso Absolute 0.1 0.0 - 0.1 x10(3)/[facility] Immature Gran % 0.40 % [facility] Comment: Immature granulocytes(IG's)percentage and absolute count will include metamyelocytes, myelocytes, and promyelocytes. Blood smears from CBCs yielding IG's will be scanned manually for concordance. If this scan disagrees with the automated IG or if promyelocytes are noted, a manual differential will be performed. Immature Gran Absolute 0.03 0.00 - 0.04 x10(3)/[facility] Blood specimen (specimen) 06/21/2019 12:02 PM EST 06/21/2019 12:12 PM EST Narrative Resulting Agency Comment Spec In Lab Avila Medina MD HEMATOLOGY ORDERABLE S [facility] [place] [address] * (ABNORMAL) Hemogram (06/21/2019 12:02 PM EST) White Blood Cell 8.2 4.0 - 9.5 x10(3)/[facility] Red Blood Cell 4.64 4.00 - 5.21 x10(6)/[facility] Hemoglobin 13.2 11.7 - 15.5 gm/dL [facility] Hematocrit 41.2 35.7 - 45.8 % [facility] Mean Cell Volume 88.8 82.6 - 94.[address] [facility] Mean Cell Hemoglobin 28.4 27.1 - 32.[address] [facility] Mean Cell Hemoglobin Concentration 32.0 31.7 - 35.0 gm/dL [facility] Platelet 359(H) 145 - 357 x10(3)/mc L [facility] RDW Standard Deviation 45.2 37.0 - 46.[address] [facility] RDW coefficient of variation 14.0 11.5 - 14.1 % [facility] Mean Platelet Volume 9.5 7.6 - 12.9 [facility] NRBC% auto 0.0 % [facility] NRBC Absolute 0.000 0.000 - 0.000 x10(3)/mc L [facility] Blood specimen (specimen) 06/21/2019 12:02 PM EST 06/21/2019 12:12 PM EST Narrative Resulting Agency Comment Spec In Lab Avila Medina MD HEMATOLOGY ORDERABLE S [facility] [place] [address] * (ABNORMAL) Comprehensive metabolic panel (non-fasting) (06/21/2019 12:02 PM EST) Glucose 205(H) 65 - 199 mg/dL [facility] Comment:Diabetes: >=200 mg/d L plus symptoms Blood Urea Nitrogen 22(H) 8 - 18 mg/dL [facility] Creatinine 0.90 0.70 - 1.20 mg/dL [facility] Sodium 138 135 - 145 mmol/L [facility] Potassium 4.2 3.5 - 5.0 mmol/L [facility] Comment: Please note: ??Patients with WBC >100,000 may have falsely elevated Potassium levels. ??For accurate Potassium quantification in these patients send serum separator tube (gold top) for subsequent determinations. ??Contact the Clinical Chemistry Laboratory if there are any questions. Chloride 100 98 - 107 mmol/L [facility] Carbon Dioxide 27 22 - 31 mmol/L [facility] Anion Gap 11 5 - 15 mmol/L [facility] Calcium 9.6 8.5 - 10.5 mg/dL [facility] Protein, Total 7.1 6.1 - 8.0 gm/dL [facility] Albumin 4.1 3.2 - 5.2 gm/dL [facility] Aspartate Aminotransferase 34(H) 0 - 30 unit/L [facility] Alanine Aminotransferase 31(H) 0 - 30 unit/L [facility] Alkaline Phosphatase 86 35 - 105 unit/L [facility] Bilirubin, Total 0.3 0.2 - 1.3 mg/dL [facility] Est Glomerular Filtration Rate 70 >=60 mL/min/1. 73 m?? [facility] Comment: The eGFR was calculated using the CKD-EPI equation. As with all creatinine based estimates of kidney function, eGFR values calculated with the CKD-EPI equation are not accurate in patients with acute kidney failure, extremes of body mass or the acutely ill. [email or web address]/[facility] eGFR 81 >=60 mL/min/1. 73 m?? [facility] Comment: The eGFR was calculated using the CKD-EPI equation. As with all creatinine based estimates of kidney function, eGFR values calculated with the CKD-EPI equation are not accurate in patients with acute kidney failure, extremes of body mass or the acutely ill. [email or web address]/[facility] Blood specimen (specimen) 06/21/2019 12:02 PM EST 06/21/2019 12:12 PM EST Narrative Resulting Agency Comment Spec In Lab Avila Medina MD CHEMISTRY ORDERABLES [facility] [place] [address] documented in this encounter Visit Diagnoses Diagnosis Renal mass Unspecified disorder of kidney and ureter documented in this encounter Care Teams Animal Killer Relationship Specialty Start Date End Date Luis E Narayan MD [facility] DR LILI [place] [address] PCP - General Family Medicine 03/26/19 01/19/22 documented as of this encounter
--- OUTSIDE RECORDS SUMMARY | 2024-06-07 13:42 | XMS_ITS | Encounter Summary ---
Author Organization [facility] Address [facility] [place] [address] Care Team Providers Care Offal Baler Name Role Phone Luis E Narayan MD Primary Care Provider [phone] Encounter Details Date Type Department Care Team (Late st Contact Info) Description 05/03/2019 External [place] [address] Sumit Pineda MD [facility] [place] [address] Social History Tobacco Use Types Packs/Day Years [...] EST Office Visit Internal Medicine at [facility] [address] [place] [address] Daryn Garrett MD [facility] DR LILI WALKER - [place] [address] 10/02/2024 1:00 PM EDT Office [place] [address] Juanpablo Hernandez MD [facility] [place] [place] [address] 01/30/2025 1:30 PM EDT Laboratory Appointment Lab at [facility] Hematology Oncology [address] [place] [address] 01/30/2025 3:[address] Scan at [address] Arturo Crodero MD [facility] [place] [address] 01/30/2025 4:15 PM EDT Office Visit Hematology and Oncology at [place] [phone] Arturo Cordero MD [facility] [place] [address] Scheduled Procedures Name Priority Associated Diagnoses Date/Ti [...] on filedocumented in this encounter Care Teams Offal Baler Relationship Specialty Start Date End Date Luis E Narayan MD [facility] [address] [place] [address] PCP - General Family Medicine 03/26/19 01/19/22 documented as of this encounter
--- OUTSIDE RECORDS SUMMARY | 2024-06-07 13:42 | XMS_ITS | Encounter Summary ---
Author Organization [facility] [place] [address] Care Team Providers Care Event Marketing Specialist Name Role Phone Luis E Narayan MD Primary Care Provider [phone]- [phone] Reason for Visit * Reason Onset Date Comments Follow-up Renal Mass 05/27/2019 Encounter Details Date Type Department Care Team (Late st Contact Info) Description 05/27/2019 3:20 PM EST [place] [address] Avila Medina MD [facility] [place] [address] Renal mass (Primary Dx) Social History Tobacco [...] or you can obtain it from the [facility] Same day program on the day of your preoperative visit. Please take only clear liquids by mouth from noon the day before surgery. Please take nothing by mouth from 2 hours before the time you have been told to report to the hospital. 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 but incomplete evaluation #2: Positive [...] being w/u for a neurological condition ASCVD CA with stents 11 years ago Type II [...] Cystic renal mass suspicious (Bosniak 3-4)for a [id number] renal cancer but incomplete evaluation #2: Positive [...] EST Office Visit Internal Medicine at [address] [phone] Daryn Garrett MD [facility] DR LILI [place]ER [place] [address] 10/02/2024 1:00 PM EDT Office [place] [phone] Juanpablo Hernandez MD [facility] [place] [address] 01/30/2025 1:30 PM EDT Laboratory Appointment Lab at [facility] Hematology Oncology [address] [place] [phone] 01/30/2025 3:[address] [place] [phone] Atruro Cordero MD [facility] HEMATOLOGY [place] [address] 01/30/2025 4:15 PM EDT Office Visit Hematology and Oncology at [facility] [place] [address] Arturo Cordero MD [facility] DR HEMATOLOGY [place] [address] Scheduled Procedures Name Priority Associated Diagnoses Date/Ti [...] Catch Urine (06/21/2019 12:06 PM EST) Pathologist [facility] Urine Culture 10,000-49,000 cfu/ml mixed mucosal nimisha Note: Culture shows multiple bacterial species suggesting mucosal contamination. If symptoms continue to indicate urinary tract infection, submit a new specimen. (A) [facility] Urine specimen obtained by clean catch procedure (specimen) 06/21/2019 12:06 PM EST 06/21/2019 12:28 PM EST Narrative Resulting Agency Comment Spec In Lab Avila Medina MD MICROBIOLOGY - GENER AL ORDERABLES [facility] [place] [address] * (ABNORMAL) Comprehensive metabolic panel (non-fasting) (06/21/2019 12:02 PM EST) Glucose 205(H) 65 - 199 mg/dL [facility] Comment:Diabetes: >=200 mg/d L plus symptoms Blood Urea Nitrogen 22(H) 8 - 18 mg/dL [facility] Creatinine 0.90 0.70 - 1.20 mg/dL [facility] Sodium 138 135 - 145 mmol/L [facility] Potassium 4.2 3.5 - 5.0 mmol/L [facility] Comment: Please note: ??Patients with WBC >100,000 may have falsely elevated Potassium levels. ??For accurate Potassium quantification in these patients send serum separator tube (gold top) for subsequent determinations. ??Contact the Clinical Chemistry Laboratory if there are any questions. Chloride 100 98 - 107 mmol/L [facility] Carbon Dioxide 27 22 - 31 mmol/L [facility] Anion Gap 11 5 - 15 mmol/L [facility] Calcium 9.6 8.5 - 10.5 mg/dL [facility] Protein, Total 7.1 6.1 - 8.0 gm/dL [facility] Albumin 4.1 3.2 - 5.2 gm/dL [facility] Aspartate Aminotransferase 34(H) 0 - 30 unit/L [facility] Alanine Aminotransferase 31(H) 0 - 30 unit/L [facility] Alkaline Phosphatase 86 35 - 105 unit/L [facility] Bilirubin, Total 0.3 0.2 - 1.3 mg/dL [facility] Est Glomerular Filtration Rate 70 >=60 mL/min/1. 73 m?? [facility] Comment: The eGFR was calculated using the CKD-EPI equation. As with all creatinine based estimates of kidney function, eGFR values calculated with the CKD-EPI equation are not accurate in patients with acute kidney failure, extremes of body mass or the acutely ill. http://[employer]/[facility] eGFR 81 >=60 mL/min/1. 73 m?? [facility] Comment: The eGFR was calculated using the CKD-EPI equation. As with all creatinine based estimates of kidney function, eGFR values calculated with the CKD-EPI equation are not accurate in patients with acute kidney failure, extremes of body mass or the acutely ill. http://[employer]/[facility] Blood specimen (specimen) 06/21/2019 12:02 PM EST 06/21/2019 12:12 PM EST Narrative Resulting Agency Comment Spec In Lab Avila Medina MD CHEMISTRY ORDERABLES [facility] [place] [address] documented in this encounter Visit Diagnoses Diagnosis Renal mass- Primary Unspecified disorder of kidney and ureter Renal mass Unspecified disorder of kidney and ureter documented in this encounter Care Teams Event Marketing Specialist Relationship Specialty Start Date End Date Luis E Narayan MD [facility] [address] [place] [address] PCP - General Family Medicine 03/26/19 01/19/22 documented as of this encounter
--- OUTSIDE RECORDS SUMMARY | 2024-06-07 13:42 | XMS_ITS | Encounter Summary ---
Author Organization [facility] Address [facility] [place] [address] Care Team Providers Care Buttonhole Facer Name Role Phone Luis E Narayan MD Primary Care Provider [phone]- [phone] Reason for Visit * Consultation (Routine) - Closed Specialty Diagnoses / Procedures Referred By Gonzalez kumari Referred To Contact Primary Care Diagnoses Type 2 diabetes mellitus with hyperglycemia, without long-term current use of insulin Luis E Narayan MD [facility] DR LILI [place] [address] [facility] Family Medicine [facility] [place] [address] Referral ID Status Reason Start Date Expiration Date V isits Requested Visits Authorized [id number] Closed Specialty Service Requested 05/29/2019 05/28/2020 1 1 Encounter Details Date Type Department Care Team (Late st Contact Info) Description 06/04/2019 1:00 PM EST [place]phone [place] [phone] Julia Low, [facility] Social History Tobacco Use Types Packs/Day [...] [facility] [address] [place] [phone] Daryn Garrett MD [facility] DR LILI [place] [address] 10/02/2024 1:00 PM EDT Office [place] [phone] Juanpablo Hernandez MD [facility] [address] 01/30/2025 1:30 PM EDT Laboratory Appointment Lab at [facility] [place] On[place] [address] [place] [phone] 01/30/2025 3:[address] [place] [phone] Arturo Cordero MD [facility] DR [place] [address] 01/30/2025 4:15 PM EDT Office Visit Hematology [place] [phone] Arturo Cordero MD [facility] DR [place] [address] Scheduled Procedures Name Priority Associated Diagnoses Date/Ti me EGD, UPPER GI ENDOSCOPY (WRV U 2.09) Irritable bowel syndrome with constipation COLONOSCOPY, DIAGNOSTIC (WRV U 3.26) Irritable bowel syndrome with constipation Scheduled Referrals Name Type Priority Associated Diagnoses Orde r Schedule Referral to [facility] (Primary Care Use Only) Outpatient Referral Routine Type 2 diabetes mellitus without long-term current use of insulin Ordered: 05/29/2019 documented as of this encounter Visit Diagnoses Not on filedocumented in this encounter Care Teams Buttonhole Facer Relationship Specialty Start Date End Date Luis E Narayan MD [facility] [place] [address] PCP - General Family Medicine 03/26/19 01/19/22 documented as of this encounter
--- OUTSIDE RECORDS SUMMARY | 2024-06-07 13:42 | XMS_ITS | Encounter Summary ---
Author Organization [facility] [place] [address] Care Team Providers Care Asphalt Screed Operator Name Role Phone Luis E Narayan MD Primary Care Provider [phone]- [phone] Encounter Details Date Type Department Care Team (Late st Contact Info) Description 05/09/2019 Abstract Internal Medicine at [facility] [address] [place] [phone] Arlene Palomo, ABRASIVE WATER JET CUTTER OPERATOR Social History Tobacco Use Types Packs/Day [...] [facility] [address] [place] [phone] Daryn Garrett MD [facility] DR [place] [address] 10/02/2024 1:00 PM EDT Office [place] [address] Juanpablo Hernandez MD [facility] [address] 01/30/2025 1:30 PM EDT Laboratory Appointment Lab at [facility] [place] [address] [place], [place] [phone] 01/30/2025 3:[address] Scan at [place] [phone] Arturo Cordero MD [facility] [place] [address] 01/30/2025 4:15 PM EDT Office Visit Hematology and Oncology at [place] [phone] Arturo Cordero MD [facility] [place] [address] Scheduled Procedures Name Priority Associated Diagnoses Date/Ti me EGD, UPPER GI ENDOSCOPY (WRV U 2.09) Irritable bowel syndrome with constipation COLONOSCOPY, DIAGNOSTIC (WRV U 3.26) Irritable bowel syndrome with constipation documented as of this encounter Visit Diagnoses Not on filedocumented in this encounter Care Teams Asphalt Screed Operator Relationship Specialty Start Date End Date Luis E Narayan MD [facility] [address] [place] [address] PCP - General Family Medicine 03/26/19 01/19/22 documented as of this encounter
--- OUTSIDE RECORDS SUMMARY | 2024-06-07 13:42 | XMS_ITS | Encounter Summary ---
Author Organization [facility] [place] [address] Care Team Providers Care Film Or Videotape Editor Name Role Phone Luis E Narayan MD Primary Care Provider [phone] Encounter Details Date Type Department Care Team (Latest Contact Info) Description 05/02/2019 10:55 AM EDT Laboratory Appointment Lab [address] [place] [address] Cognitive and behavioral changes Social [...] EST Office Visit Internal Medicine at [facility] [address] [place] [address] [facility] [address] LILI [place] [address] 10/02/2024 1:00 PM EDT Office [place] [address] [facility] [place] [address] 01/30/2025 1:30 PM EDT Laboratory Appointment Lab at [facility] Hematology Oncology [address] [place] [phone] 01/30/2025 3:[address] [place] [address] [facility] DR HEMATOLOGY [place] [address] 01/30/2025 4:15 PM EDT Office Visit Hematology [place] [phone] [facility] DR HEMATOLOGY [place] [address] Scheduled Procedures Name Priority Associated Diagnoses Date/Ti [...] Prot Electrophoresis 6.5 6.1 - 8.0 gm/dL [facility] Albumin Electrophoresis 4.17 3.60 - 6.00 gm/dL [facility] Alpha 1 Globulin 0.19 0.10 - 0.30 gm/dL [facility] Alpha 2 Globulin 0.65 0.40 - 0.90 gm/dL [facility] Beta Globulin 0.71 0.50 - 1.00 gm/dL [facility] Gamma Globulin 0.79 0.50 - 1.30 gm/dL [facility] M1 Band None Detected None Detected [facility] Blood specimen (specimen) 05/02/2019 11:15 AM EDT 05/02/2019 11:24 AM EDT Narrative Resulting Agency Comment Spec In Lab Sumit Pineda MD CHEMISTRY ORDERABLES Performing Organization Address [facility] Co de Phone Number [facility] [place] [address] * Vitamin B1, whole blood (05/02/2019 11:15 AM EDT) Vit B1 Lvl Wb (NOVEMBER) 173 70 - 180 nmol/L [facility] Comment: ADDITIONAL INFORMATION This test was developed and its performance characteristics determined by [facility] in a manner consistent with CLIA requirements. This test has not been cleared or approved by the U.S. Food and Drug Administration. Test Performed by: [facility] [place] [address] [employer] Console Operator Track: Jose G Jefferson M.D. Ph.D.; CLIA# [id number] Blood specimen (specimen) 05/02/2019 11:15 AM EDT 05/02/2019 1:43 PM EDT Narrative Resulting Agency Comment Spec In Lab Sumit Pineda MD LAB SEND OUT ORDERAB LES Performing Organization Address [facility] Co de Phone Number [facility] [place] [address] documented in this encounter Visit Diagnoses Diagnosis Cognitive and behavioral changes Other signs and symptoms involving cognition documented in this encounter Care Teams Film Or Videotape Editor Relationship Specialty Start Date End Date Luis E Narayan MD [facility] DR LILI [facility] [address] PCP - General Family Medicine 03/26/19 01/19/22 documented as of this encounter
--- OUTSIDE RECORDS SUMMARY | 2024-06-07 13:42 | XMS_ITS | Encounter Summary ---
Author Organization [facility] Address [place] [id number] Care Team Providers Care Relief Operator Name Role Phone Luis E Narayan MD Primary Care Provider Reason for Referral * Consultation (Urgent) - Closed Specialty Diagnoses / Procedures Referred By Contac t Referred To Contact Urology Diagnoses Renal mass Elpidio Pinedo IV, MD [facility] [place] [address] [facility] [place] [address] Referral ID Status Reason Start Date Expiration Date V isits Requested Visits Authorized [id number] Closed Consult, Test & Treat 03/26/2019 03/25/2020 1 1 * Consultation (Urgent) - Closed Specialty Diagnoses / Procedures Referred By Contac t Referred To Contact Neurology Diagnoses Generalized weakness Elpidio Pinedo IV, MD [facility] [place] [address] [facility] Neurology [address] [place] [address] Referral ID Status Reason Start Date Expiration Date V isits Requested Visits Authorized [id number] Closed Consult, Test & Treat 03/26/2019 03/25/2020 1 1 Reason for Visit * Reason Comments Edema Encounter Details Date Type Department Care Team (Late st Contact Info) Description 03/26/2019 8:40 PM EDT - 03/27/2019 2:36 AM EDT Emergency Emergency Department [facility], [address] [place] [address] Avila Farnsworth MD [facility] [place] [address] Generalized weakness; Other specified diabetes mellitus with diabetic neuropathy, unspecified whether alf insulin use; Renal mass Discharge Disposition: Home [...] 11/26/2018 04/09/2019 fluticasone propionate (FLONASE) 50 mcg/actuation [place], Suspension 50 sprays by Each Nare route [...] 03/26/2019 10:19 PM EDT Pt transported to [facility] via tech. * Elpidio Pinedo IV [...] medical care so far. 01/23-01/27 admitted to [place], discharged on prednisone taper and then sought care at [facility] where she had CT scans done [...] disposition. Elpidio Pinedo IV, MD Resident 03/26/19 [id number] Associated attestation - Avila Farnsworth MD - [...] [facility] [address] [place] [address] Daryn Garrett MD [facility] DR LILI WALKER - [place] [address] 10/02/2024 1:00 PM EDT Office Visit Ophthalmology at [place] [phone] Juanpablo Hernandez MD [facility] [place] [address] 01/30/2025 1:30 PM EDT Laboratory Appointment Lab at [facility] Hematology Oncology [address] [place] [phone] 01/30/2025 3:[address] [place] [address] Arturo Cordero MD [facility] DR HEMATOLOGY [place] [address] 01/30/2025 4:15 PM EDT Office Visit [place]ology [place] [phone] Arturo Cordero MD [facility] DR [place] [address] Scheduled Procedures Name Priority Associated Diagnoses Date/Ti [...] number below. Electronically signed by: Diana Ratliff [facility]([phone]), at 03/27/2019 3:48 AM Vaughn Boone MD IMG MRI ORDERABLES * Ethanol Level (03/26/2019 10:10 PM EDT) Ethanol <100 <=99 mg/L [facility] Comment: Greater than 800 mg/L (0.08%) should be considered intoxicated. 3400 to 4500 mg/L (0.34 - 0.45%) is considered severe intoxication. Greater than 5500 mg/L (0.55%) is usually fatal. Blood specimen (specimen) 03/26/2019 10:10 PM EDT 03/26/2019 10:18 PM EDT Narrative Resulting Agency Comment Spec In Lab Vaughn Boone MD CHEMISTRY ORDERABLES [facility] [place] [address] * Gold Tube HOLD (03/26/2019 9:53 PM EDT) Gold Hold Sample in lab. [facility] Blood specimen (specimen) Venous Draw / Unknown 03/26/2019 9:53 PM EDT 03/26/2019 10:04 PM EDT Elpidio Pinedo IV, MD CHEMISTRY ORDERABLE S [facility] [place] [address] * Blue Tube HOLD (03/26/2019 9:53 PM EDT) Pathologist [facility] Blue Hold Sample in lab. [facility] Blood specimen (specimen) Venous Draw / Unknown 03/26/2019 9:53 PM EDT 03/26/2019 10:04 PM EDT Elpidio Pinedo IV, MD HEMATOLOGY ORDERABL ES [facility] [place] [address] * Differential, Automated (03/26/2019 9:53 PM EDT) [facility] Neutrophil % 57.9 % [facility] Neutrophil Absolute 5.86 1.70 - 6.10 x10(3)/[facility] Lymph % 30.9 % [facility] Lymphocytes Abs 3.1 0.9 - 3.2 x10(3)/[facility] Monocyte % 8.2 % [facility] Monocyte Abs 0.8 0.3 - 0.9 x10(3)/[facility] Eos % 2.1 % [facility] Eosinophils Abs 0.2 0.0 - 0.4 x10(3)/[facility] Basophil % 0.7 % [facility] Baso Absolute 0.1 0.0 - 0.1 x10(3)/[facility] Immature Gran % 0.20 % [facility] Comment: Immature granulocytes(IG's)percentage and absolute count will include metamyelocytes, myelocytes, and promyelocytes. Blood smears from CBCs yielding IG's will be scanned manually for concordance. If this scan disagrees with the automated IG or if promyelocytes are noted, a manual differential will be performed. Immature Gran Absolute 0.02 0.00 - 0.04 x10(3)/[facility] Blood specimen (specimen) 03/26/2019 9:53 PM EDT 03/26/2019 10:03 PM EDT Narrative Resulting Agency Comment Spec In Lab Elpidio Pinedo IV, MD HEMATOLOGY ORDERABL ES Performing Organization Address City/[facility]/ZIP Co de Phone Number [facility] [place] [address] * (ABNORMAL) Hemogram (03/26/2019 9:53 PM EDT) White Blood Cell 10.1(H) 4.0 - 9.5 x10(3)/mc L [facility] Red Blood Cell 4.65 4.00 - 5.21 x10(6)/mc L [facility] Hemoglobin 13.6 11.7 - 15.5 gm/dL [facility] Hematocrit 40.1 35.7 - 45.8 % [facility] Mean Cell Volume 86.2 82.6 - 94.4 fL [facility] Mean Cell Hemoglobin 29.2 27.1 - 32.0 pg [facility] Mean Cell Hemoglobin Concentration 33.9 31.7 - 35.0 gm/dL [facility] Platelet 458(H) 145 - 357 x10(3)/mc L [facility] RDW Standard Deviation 45.4 37.0 - 46.0 [facility] RDW coefficient of variation 14.4(H) 11.5 - 14.1 % [facility] Mean Platelet Volume 9.4 7.6 - 12.9 [facility] NRBC% auto 0.0 % [facility] NRBC Absolute 0.000 0.000 - 0.000 x10(3)/ L [facility] Blood specimen (specimen) 03/26/2019 9:53 PM EDT 03/26/2019 10:03 PM EDT Narrative Resulting Agency Comment Spec In Lab Elpidio Pinedo IV, MD HEMATOLOGY ORDERABL ES [facility] [place] [address] * (ABNORMAL) Hemoglobin A1c (03/26/2019 9:53 PM EDT) Hemoglobin A1c 8.0(H) 4.3 - 5.6 % [facility] Comment: Reference Range: 4.3 - [...] 1, S67-74 Estimated Average Glucose 183 mg/dL [facility] Comment: eAG equivalents for HbA1c [...] into estimated average glucose values. ??Diabetes Care 2008:31(8):2332-1064. Blood specimen (specimen) 03/26/2019 9:53 PM EDT 03/26/2019 10:03 PM EDT Narrative Resulting Agency Comment Spec In Lab Vaughn Boone MD CHEMISTRY ORDERABLES Performing Organization Address City/[facility]/ZIP Co de Phone Number [facility] [place] [address] * pro-Brain Natriuretic Peptide (03/26/2019 9:53 PM EDT) NT-proBNP 108 <=125 pg/mL [facility] Blood specimen (specimen) 03/26/2019 9:53 PM EDT 03/26/2019 10:03 PM EDT Narrative Resulting Agency Comment Spec In Lab Vaughn Boone MD CHEMISTRY ORDERABLES Performing Organization Address [facility] Co de Phone Number [facility] [place] [address] * Troponin (03/26/2019 9:53 PM EDT) Troponin-T <0.01 0.00 - 0.00 ng/mL [facility] Comment: The 99th percentile for Troponin T is less than 0.01 ng/mL, any detectable cTnT concentration using this assay should be considered elevated. According to the third universal definition of myocardial infarction the following criteria with a clinical presentation consistent with acute myocardial ischemia meets the diagnosis for a myocardial infarction ([place]). Detection of a rise and/or fall of cTnT, with at least one value greater than the 99th percentile (> or = 0.01) and with at least one of the following ?? Symptoms of ischemia ?? New or presumed new significant [id number]-[id number]-W wave (ST-T) changes or new left bundle [...] additional sample may be indicated. Reference: Third [place] Definition of Myocardial Infarction. Journal of the [place] [employer] 2012;60:1581-98 Blood specimen (specimen) 03/26/2019 9:53 PM EDT 03/26/2019 10:03 PM EDT Narrative Resulting Agency Comment Spec In Lab Vaughn Boone MD CHEMISTRY ORDERABLES [facility] [place] [address] * (ABNORMAL) Basic Metabolic Panel (non-fasting) (03/26/2019 9:53 PM EDT) Glucose 131 65 - 199 mg/dL [facility] Comment:Diabetes: >=200 mg/d L plus symptoms Blood Urea Nitrogen 13 8 - 18 mg/dL [facility] Creatinine 0.68(L) 0.70 - 1.20 mg/dL [facility] Sodium 142 135 - 145 mmol/L [facility] Potassium 3.7 3.5 - 5.0 mmol/L [facility] Comment: Please note: ??Patients with WBC >100,000 may have falsely elevated Potassium levels. ??For accurate Potassium quantification in these patients send serum separator tube (gold top) for subsequent determinations. ??Contact the Clinical Chemistry Laboratory if there are any questions. Chloride 103 98 - 107 mmol/L [facility] Carbon Dioxide 26 22 - 31 mmol/L [facility] Anion Gap 13 5 - 15 mmol/L [facility] Calcium 9.9 8.5 - 10.5 mg/dL [facility] Est Glomerular Filtration Rate 96 >=60 mL/min/1. 73 m?? [facility] Comment: The eGFR was calculated using the CKD-EPI equation. As with all creatinine based estimates of kidney function, eGFR values calculated with the CKD-EPI equation are not accurate in patients with acute kidney failure, extremes of body mass or the acutely ill. http://[employer]/DHMCnkf eGFR 111 >=60 mL/min/1. 73 m?? [facility] Comment: The eGFR was calculated using the CKD-EPI equation. As with all creatinine based estimates of kidney function, eGFR values calculated with the CKD-EPI equation are not accurate in patients with acute kidney failure, extremes of body mass or the acutely ill. http://[employer]/DHMCnkf Blood specimen (specimen) 03/26/2019 9:53 PM EDT 03/26/2019 10:03 PM EDT Narrative Resulting Agency Comment Spec In Lab Vaughn Boone MD CHEMISTRY ORDERABLES [facility] [place] [address] * (ABNORMAL) Rapid Drug Screen w/o Confirmation, Urine (03/26/2019 9:49 PM EDT) Pathologist [facility] Barbiturates Screen, Urine None Detected None Detected [facility] Comment: The barbiturate screen detects [...] Benzodiazepines Screen, Urine None Detected None Detected [facility] Comment: The benzodiazepines screen detects [...] Cocaine Screen, Urine None Detected None Detected [facility] Comment: The cocaine metabolites screen detects benzoylecgonine (Cocaine Metabolite) at concentrations >150 ng/mL. A ? Presumptive Positive? result indicates that the screening result was positive but has not yet been confirmed by a highly-specific method. As with any screen, occasional false positive results from cross-reacting substances may occur. Not for Medico-Legal Purposes. Methadone Metabolites Screen, Urine None Detected None Detected [facility] Comment: The methadone metabolite screen detects EDDP (major methadone metabolite) at concentrations >100 ng/mL. A ? Presumptive Positive? result indicates that the screening result was positive but has not yet been confirmed by a highly-specific method. As with any screen, occasional false positive results from cross-reacting substances may occur. Not for Medico-Legal Purposes. Opiate Screen, Urine None Detected None Detected [facility] Comment: The opiates screen detects [...] Cannabinoid Screen, Urine Presumptive Pos(A) None Detected [facility] Comment: The marijuana metabolites screen detects the THC metabolite (82-ogx-2-carboxy-delta 9-THC) at concentrations >20 ng/mL. A ? Presumptive Positive? result indicates that the screening result was positive but has not yet been confirmed by a highly-specific method. As with any screen, occasional false positive results from cross-reacting substances may occur. Not for Medico-Legal Purposes. Oxycodone Screen, Urine None Detected None Detected [facility] Comment: The oxycodone screen detects oxycodone and oxymorphone at concentrations >100 ng/mL. A ? Presumptive Positive? result indicates that the screening result was positive but has not yet been confirmed by a highly-specific method. As with any screen, occasional false positive results from cross-reacting substances may occur. Not for Medico-Legal Purposes. Buprenorphine Screen, Urine None Detected None Detected [facility] Comment: The buprenorphine screen detects buprenorphine at concentrations >5 ng/mL. A ? Presumptive Positive? result indicates that the screening result was positive but has not yet been confirmed by a highly-specific method. As with any screen, occasional false positive results from cross-reacting substances may occur. Not for Medico-Legal Purposes. Fentanyl Screen, Urine None Detected None Detected [facility] Comment: The fentanyl screen detects fentanyl at concentrations >2 ng/mL. A ? Presumptive Positive? result indicates that the screening result was positive but has not yet been confirmed by a highly-specific method. As with any screen, occasional false positive results from cross-reacting substances may occur. Not for Medico-Legal Purposes. Tricyclics Screen, Urine None Detected None Detected [facility] Comment: The tricyclics screen detects [...] Ethanol Screen, Urine None Detected None Detected [facility] Comment:This urine ethanol a ssay detects ethanol at concentrations >/= 100 mg/L. Amphetamines Screen, Urine None Detected None Detected [facility] Comment: The amphetamine screen detects d-amphetamine and d-methamphetamine at concentrations >300 ng/mL. A ? Presumptive Positive? result indicates that the screening result was positive but has not yet been confirmed by a highly-specific method. As with any screen, occasional false positive results from cross-reacting substances may occur. Not for Medico-Legal Purposes. Adulterants Screen, Urine None Detected None Detected [facility] Comment: No adulteration or dilution of this urine sample was detected. All urine samples submitted for urine drugs of abuse analysis are tested for creatinine concentration, pH, and for the presence of oxidants, nitrites, and chromate. Urine specimen (specimen) 03/26/2019 9:49 PM EDT 03/26/2019 10:12 PM EDT Narrative Resulting Agency Comment Spec In Lab Elpidio Pinedo IV, MD CHEMISTRY ORDERABLE S [facility] [place] [address] * Rapid Drug Screen, Urine (RODRIGUEZ Request) (03/26/2019 9:49 PM EDT) RODRIGUEZ Conf Requested No [facility] RODRIGUEZ Requested See Comment [facility] Comment:Refer to Rapid Drug Screen w/o Confirmation, Urine for results. Urine specimen (specimen) 03/26/2019 9:49 PM EDT 03/26/2019 10:12 PM EDT Narrative Resulting Agency Comment Spec In Lab Vaughn Boone MD URINE ORDERABLES [facility] [place] [address] * Urinalysis with reflex Culture (03/26/2019 9:49 PM EDT) Glucose, Urine Dipstick Negative Negative mg/dL [facility] Protein, Urine Dipstick Negative Negative mg/dL [facility] Bilirubin, Urine Dipstick Negative Negative mg/dL [facility] Comment: Clinical correlation required for positive Urine Bilirubin results as false positive may occur with some drugs and drug related products. If a false positive is suspected a serum total bilirubin should be considered if clinically indicated. Urobilinogen, Urine Dipstick Normal Normal mg/dL [facility] pH, Urn (dipstick) 6.0 5.0 - 8.0 [facility] Blood, Urine Dipstick Negative Negative mg/dL [facility] Ketone, Urine Dipstick Negative Negative mg/dL [facility] Nitrite, Urine Dipstick Negative Negative [facility] Leukocytes, Urine Dipstick Negative Negative [facility] Appearance, Urine Dipstick Clear Clear [facility] Specific [place] Urine Automated 1.013 1.002 - 1.030 [facility] Color, Urine Dipstick Yellow Yellow [facility] Reflex to Culture No [facility] Urine specimen obtained by clean catch procedure (specimen) 03/26/2019 9:49 PM EDT 03/26/2019 10:12 PM EDT Narrative Resulting Agency Comment Spec In Lab Vaughn Boone MD URINE ORDERABLES [facility] [place] [address] documented in this encounter Visit Diagnoses Diagnosis Generalized weakness Other malaise and fatigue Other specified diabetes mellitus with diabetic neuropathy, unspecified whether ocean transportation intermediary insulin use Renal mass Unspecified disorder of [...] Sepulveda) documented in this encounter Care Teams Relief Operator Relationship Specialty Start Date End Date Luis E Narayan MD [facility] DR LILI [place] [address] PCP - General Family Medicine 03/26/19 01/19/22 documented as of this encounter
--- OUTSIDE RECORDS SUMMARY | 2024-06-07 13:42 | XMS_ITS | Encounter Summary ---
Author Organization Formerly [facility] [place] [address] Care Team Providers Care Chaplaincy Name Role Phone Luis E Narayan MD Primary Care Provider Encounter Details Date Type Department Care Team (Latest Contact Info) Description 05/27/2019 1:57 PM EST - 05/27/2019 11:59 PM EST Hospital Encounter Mammography/[place] [address] Luis E Narayan MD [facility] DR LILI AZEVEDO[place] [address] Healthcare maintenance Discharge Disposition: Home Social History [...] 04/09/2019 06/21/2019 fluticasone propionate (FLONASE) 50 mcg/actuation [place], Suspension 50 sprays by Each Nare route [...] at [facility] [address] [place] [address] Daryn Garrett MD [facility] DR LILI AZEVEDO [place] [address] 10/02/2024 1:00 PM EDT Office [place] [phone] Juanpablo Hernandez MD [facility] [place] [address] 01/30/2025 1:30 PM EDT Laboratory Appointment Lab at [facility] Hematology Oncology [address] [place] [phone] 01/30/2025 3:[address] [place] [phone] Arturo Cordero MD [facility] DR HEMATOLOGY [place] [address] 01/30/2025 4:15 PM EDT Office Visit Hematology [place] [address] Arturo Cordero MD [facility] DR HEMATOLOGY [place] [address] Scheduled Procedures Name Priority Associated Diagnoses Date/Ti [...] facility documented in this encounter Care Teams Chaplaincy Relationship Specialty Start Date End Date Luis E Narayan MD [facility] DR LILI AZEVEDO[place] [address] PCP - General Family Medicine 03/26/19 01/19/22 documented as of this encounter
--- OUTSIDE RECORDS SUMMARY | 2024-06-07 13:42 | XMS_ITS | Encounter Summary ---
Author Organization [facility] [place] [address] Care Team Providers Care Mortgage Loan Coordinator Name Role Phone Luis E Narayan MD Primary Care Provider [phone] Reason for Referral * Diagnostic Test (Routine) - Closed Specialty Diagnoses / Procedures Referred By Contac t Referred To Contact Radiology Diagnoses Adrenal mass, left Renal mass, left Procedures MRI Abdomen wwo Contrast (Generic) Avila Medina MD [facility] [place] [address] [place] [address] Referral ID Status Reason Start Date Expiration Date V isits Requested Visits Authorized [id number] Closed Specialty Service Requested 04/24/2019 06/22/2019 1 1 Reason for Visit * Diagnostic Test (Routine) - Closed Specialty Diagnoses / Procedures Referred By Contac t Referred To Contact Radiology Diagnoses Adrenal mass, left Renal mass, left Procedures MRI Abdomen wwo Contrast (Generic) Avila Medina MD [facility] [place] [address] [place] [address] Referral ID Status Reason Start Date Expiration Date V isits Requested Visits Authorized [id number] Closed Specialty Service Requested 04/24/2019 06/22/2019 1 1 Encounter Details Date Type Department Care Team (Latest Contact Info) Description 05/02/2019 2:50 PM EDT - 05/02/2019 11:59 PM EDT Hospital Encounter MRI at [facility] [place] [address] Avila Medina MD [facility] [place] [address] Adrenal mass, left; Renal mass, left Discharge [...] 04/09/2019 06/21/2019 fluticasone propionate (FLONASE) 50 mcg/actuation [place], Suspension 50 sprays by Each Nare route [...] EST Office Visit Internal Medicine at [address] [phone] Daryn Garrett MD [facility] DR LILI [place] [address] 10/02/2024 1:00 PM EDT Office [place] [address] Juanpablo Hernandez MD [facility] [place] [address] 01/30/2025 1:30 PM EDT Laboratory Appointment Lab at [facility] [place]ology Oncology [address] [place] [phone] 01/30/2025 3:[address] [place] [address] Arturo Cordero MD [facility] DR HEMATOLOGY AND ONCOLOGY [place], [place] [phone] 01/30/2025 4:15 PM EDT Office Visit Hematology [place] [address] Arturo Cordero MD [facility] DR HEMATOLOGY AND ONCOLOGY [place], [place] [phone] Scheduled Procedures Name Priority Associated Diagnoses Date/Ti [...] contact the number below. Avila Medina MD [facility] [place] ORDERABLES documented in [...] mLs documented in this encounter Care Teams Mortgage Loan Coordinator Relationship Specialty Start Date End Date Luis E Narayan MD [facility] [place] [address] PCP - General Family Medicine 03/26/19 01/19/22 documented as of this encounter
--- OUTSIDE RECORDS SUMMARY | 2024-06-07 13:42 | XMS_ITS | Encounter Summary ---
Author Organization [facility] Address [facility] [place] [address] Care Team Providers Care Sewing Machine Operator Name Role Phone Luis E Narayan MD Primary Care Provider Encounter Details Date Type Department Care Team (Late st Contact Info) Description 04/12/2019 [place] [address] Avila Medina MD [facility] [place] [address] Social History Tobacco Use Types Packs/Day Years [...] [facility] [address] [place] [address] Daryn Garrett MD [facility] DR LILI [place] [address] 10/02/2024 1:00 PM EDT Office Visit Ophthalmology at [place] [phone] Juanpablo Hernandez MD [facility] [place] [address] 01/30/2025 1:30 PM EDT Laboratory Appointment Lab at [facility] Hematology Oncology [address] [place], [place] [phone] 01/30/2025 3:[address] Scan at [place] [phone] Arturo Cordero MD [facility] [place] [address] 01/30/2025 4:15 PM EDT Office Visit Hematology and Oncology at [place] [phone] Arturo Cordero MD [facility] [place] [address] Scheduled Procedures Name Priority Associated Diagnoses Date/Ti me EGD, UPPER GI ENDOSCOPY (WRV U 2.09) Irritable bowel syndrome with constipation COLONOSCOPY, DIAGNOSTIC (WRV U 3.26) Irritable bowel syndrome with constipation documented as of this encounter Visit Diagnoses Not on filedocumented in this encounter Care Teams Sewing Machine Operator Relationship Specialty Start Date End Date Luis E Narayan MD [facility] DR LILI [place] [address] PCP - General Family Medicine 03/26/19 01/19/22 documented as of this encounter
--- OUTSIDE RECORDS SUMMARY | 2024-06-07 13:42 | XMS_ITS | Encounter Summary ---
Author Organization [facility] Address [facility] [place] [address] Care Team Providers Care Internal Medicine Doctor Name Role Phone Luis E Narayan MD Primary Care Provider [phone] Encounter Details Date Type Department Care Team (Late st Contact Info) Description 04/15/2019 [place] [phone] Ru Leon, RN Social History Tobacco Use [...] [facility] [address] [place] [address] Daryn Garrett MD [facility] DR LILI [place] [address] 10/02/2024 1:00 PM EDT Office Visit Ophthalmology at [place] [phone] Juanpablo Hernandez MD [facility] [place] [place] [address] 01/30/2025 1:30 PM EDT Laboratory Appointment Lab at [facility] Hematology Oncology [address] [place] [phone] 01/30/2025 3:[address] Scan at [address] Arturo Cordero MD [facility] [address] [place] [address] 01/30/2025 4:15 PM EDT Office Visit Hematology [place] [phone] Arturo Cordero MD [facility] [address] [place] [address] Scheduled Procedures Name Priority Associated Diagnoses Date/Ti me EGD, UPPER GI ENDOSCOPY (WRV U 2.09) Irritable bowel syndrome with constipation COLONOSCOPY, DIAGNOSTIC (WRV U 3.26) Irritable bowel syndrome with constipation documented as of this encounter Visit Diagnoses Not on filedocumented in this encounter Care Teams Internal Medicine Doctor Relationship Specialty Start Date End Date Luis E Narayan MD [facility] [address] [place] [address] PCP - General Family Medicine 03/26/19 01/19/22 documented as of this encounter
--- OUTSIDE RECORDS SUMMARY | 2024-06-07 13:42 | XMS_ITS | Encounter Summary ---
Author Organization [facility] Address [facility] [place] [address] Care Team Providers Care Foreign Student Adviser Name Role Phone Luis E Narayan MD Primary Care Provider Encounter Details Date Type Department Care Team (Late st Contact Info) Description 04/15/2019 [place] [phone] Avila Medina MD [facility] [place] [address] Social History Tobacco Use Types Packs/Day Years [...] Office Visit Internal Medicine at [facility] [address] [place] [address] Daryn Garrett MD [facility] DR LILI AZEVEDO [place] [address] 10/02/2024 1:00 PM EDT Office [place] [address] Juanpablo Hernandez MD [facility] [place] [address] 01/30/2025 1:30 PM EDT Laboratory Appointment Lab at [facility] Hematology Oncology [address] [place] [phone] 01/30/2025 3:[address] Scan at [place] [phone] Arturo Cordero MD [facility] HEMATOLOGY [place] [address] 01/30/2025 4:15 PM EDT Office Visit [place]ology [place] [address] Arturo Cordero MD [facility] DR HEMATOLOGY [place] [address] Scheduled Procedures Name Priority Associated Diagnoses Date/Ti me EGD, UPPER GI ENDOSCOPY (WRV U 2.09) Irritable bowel syndrome with constipation COLONOSCOPY, DIAGNOSTIC (WRV U 3.26) Irritable bowel syndrome with constipation documented as of this encounter Visit Diagnoses Not on filedocumented in this encounter Care Teams Foreign Student Adviser Relationship Specialty Start Date End Date Luis E Narayan MD [facility] DR LILI AZEVED[place] [address] PCP - General Family Medicine 03/26/19 01/19/22 documented as of this encounter
--- OUTSIDE RECORDS SUMMARY | 2024-06-07 13:42 | XMS_ITS | Encounter Summary ---
[place] [address] Care Team Providers Care Arbor Press Operator Name Role Phone Luis E Narayan MD Primary Care Provider [phone] Reason for Referral * Consultation (Routine) - Closed Specialty Diagnoses / Procedures Referred By Gonzalez kumari Referred To Contact Neurology Diagnoses Abnormal MRI of head Luis E Narayan MD [facility] DR LILI AZEVEDO[place] [address] [facility] Neurology [address] [place] [phone] Referral ID Status Reason Start Date Expiration Date V isits Requested Visits Authorized [id number] Closed Specialty Service Requested 03/28/2019 03/27/2020 1 1 Reason for Visit * Reason Onset Date Comments Results 03/28/2019 Encounter Details Date Type Department Care Team (Late st Contact Info) Description 03/28/2019 Telephone Family Medicine at [facility] [address] [place] [phone] Ally Palomo Results Social History Tobacco Use [...] EDT Is she wants to set up [facility], I can send her messages directly.... The [...] a message: yes Ok to send my- message MA/Nurse contacted via: Message: yes Call: no Pager: no documented in this encounter Plan of Treatment Upcoming Encounters Date Type Department Care Team (Late st Contact Info) Description 06/28/2024 9:30 AM EST Office Visit Internal Medicine at [address] [phone] Daryn Garrett MD [facility] DR LILI AZEVEDO [place] [address] 10/02/2024 1:00 PM EDT Office [place] [phone] Juanpablo Hernandez MD [facility] [place] [place] [address] 01/30/2025 1:30 PM EDT Laboratory Appointment Lab at [facility] Hematology Oncology [address] [place] [phone] 01/30/2025 3:[address] [place] [address] Arturo Cordero MD [facility] HEMATOLOGY [place] [address] 01/30/2025 4:15 PM EDT Office Visit Hematology and Oncology at [facility] [place] [address] Arturo Cordero MD [facility] DR HEMATOLOGY [place] [address] Scheduled Procedures Name Priority Associated Diagnoses Date/Ti [...] examination of skull and head Atherosclerosis of [place] coronary artery of [place] heart with angina pectoris documented in this encounter Care Teams Arbor Press Operator Relationship Specialty Start Date End Date Luis E Narayan MD [facility] DR LILI AZEVEDO[place] [address] PCP - General Family Medicine 03/26/19 01/19/22 documented as of this encounter
--- OUTSIDE RECORDS SUMMARY | 2024-06-07 13:42 | XMS_ITS | Encounter Summary ---
Author Organization [facility] [place] [address] Care Team Providers Care Road Mechanic Name Role Phone Luis E Narayan MD Primary Care Provider Reason for Referral * Diagnostic Test (Routine) - Closed Specialty Diagnoses / Procedures Referred By Contac t Referred To Contact Radiology Diagnoses Adrenal mass, left Renal mass, left Procedures MRI Abdomen wwo Contrast (Generic) Avila Medina MD [facility] [place] [address] [place] [address] Referral ID Status Reason Start Date Expiration Date V isits Requested Visits Authorized [id number] Closed Specialty Service Requested 04/24/2019 06/22/2019 1 1 Reason for Visit * Consultation (Urgent) - Closed Specialty Diagnoses / Procedures Referred By Contac t Referred To Contact Urology Diagnoses Renal mass Elpidio Pinedo IV, MD [facility] [place] [address] [facility] [place] [address] Referral ID Status Reason Start Date Expiration Date V isits Requested Visits Authorized [id number] Closed Consult, Test & Treat 03/26/2019 03/25/2020 1 1 Encounter Details Date Type Department Care Team (Late st Contact Info) Description 04/11/2019 9:50 AM EDT Office Visit Hematology [place] [address] Avila Medina MD [facility] [place] [address] Adrenal mass, left; Renal mass, left Social [...] being w/u for a neurological condition ASCVD [place] with stents 11 years ago Type II [...] #1: 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 Hematology Oncology [address] [place] [phone] 01/30/2025 3:[address] [place] [address] Arturo Cordero MD [facility] DR [place] [address] 01/30/2025 4:15 PM EDT Office Visit Hematology [place] [phone] Arturo Cordero MD [facility] [place] [address] Scheduled Procedures Name Priority Associated Diagnoses Date/Ti [...] the number below. Avila Medina MD IMG MRI ORDERABLES documented in this encounter Visit Diagnoses Diagnosis Adrenal mass, left Unspecified disorder of adrenal glands Renal mass, left Unspecified disorder of kidney and ureter Adrenal mass, left Unspecified disorder of adrenal glands Renal mass, left Unspecified disorder of kidney and ureter documented in this encounter Care Teams Road Mechanic Relationship Specialty Start Date End Date Luis E Narayan MD [facility] [place] [address] PCP - General Family Medicine 03/26/19 01/19/22 documented as of this encounter
--- OUTSIDE RECORDS SUMMARY | 2024-06-07 13:42 | XMS_ITS | Encounter Summary ---
Author Organization [facility] [place] [address] Care Team Providers Care Third Steel Pourer Name Role Phone Luis E Narayan MD Primary Care Provider Encounter Details Date Type Department Care Team (Late Contact Info) Description 04/15/2019 [place] [phone] Ru Leon, RN Social History Tobacco Use [...] with Alize and she will got to [facility] for Metabolic lab testing. Orders faxed, dexamethazone ( 1 mg) Prescribed, and instructions mailed. All questions addressed at this time she will call withany further questions or concerns. documented in this encounter Plan of Treatment Upcoming Encounters Date Type Department Care Team (Late Contact Info) Description 06/28/2024 9:30 AM EST Office Visit Internal Medicine at [facility] [address] [place] [phone] Daryn Garrett MD [facility] DR LILI WALKER [place] [address] 10/02/2024 1:00 PM EDT Office Visit Ophthalmology at [place] [phone] Juanpablo Hernandez MD [facility] [place] [address] 01/30/2025 1:30 PM EDT Laboratory Appointment Lab at [facility] [place] On[place] [address] [place] [phone] 01/30/2025 3:[address] Scan at [place] [phone] Arturo Cordero MD [facility] DR HEMATOLOGY [place] [address] 01/30/2025 4:15 PM EDT Office Visit Hematology [place] [address] Arturo Cordero MD [facility] DR HEMATOLOGY [place] [address] Scheduled Procedures Name Priority Associated Diagnoses Date/Ti me EGD, UPPER GI ENDOSCOPY (WRV U 2.09) Irritable bowel syndrome with constipation COLONOSCOPY, DIAGNOSTIC (WRV U 3.26) Irritable bowel syndrome with constipation documented as of this encounter Visit Diagnoses Not on filedocumented in this encounter Care Teams Third Steel Pourer Relationship Specialty Start Date End Date Luis E Narayan MD [facility] DR LILI WALKER[place] [address] PCP - General Family Medicine 03/26/19 01/19/22 documented as of this encounter
--- OUTSIDE RECORDS SUMMARY | 2024-06-07 13:42 | XMS_ITS | Encounter Summary ---
Author Organization [facility] [address] Care Team Providers Care Seismic Observer Name Role Phone Luis E Narayan MD Primary Care Provider Encounter Details Date Type Department Care Team (Late st Contact Info) Description 04/12/2019 Telephone Family Medicine at [facility] [address] [place] [address] Denisse López RN Social History Tobacco Use [...] EST Office Visit Internal Medicine at [address] [address] Daryn Garrett MD [facility] DR LILI [place] [address] 10/02/2024 1:00 PM EDT Office [place] [phone] Juanpablo Hernandez MD [facility] [place] [address] 01/30/2025 1:30 PM EDT Laboratory Appointment Lab at [facility] Hematology Oncology [address] [place] [phone] 01/30/2025 3:[address] [place] [phone] Arturo Cordero MD [facility] [place] [address] 01/30/2025 4:15 PM EDT Office Visit [place]ematology [place] [address] Arturo Cordero MD [facility] [place] [address] Scheduled Procedures Name Priority Associated Diagnoses Date/Ti me EGD, UPPER GI ENDOSCOPY (WRV U 2.09) Irritable bowel syndrome with constipation COLONOSCOPY, DIAGNOSTIC (WRV U 3.26) Irritable bowel syndrome with constipation documented as of this encounter Visit Diagnoses Not on filedocumented in this encounter Care Teams Seismic Observer Relationship Specialty Start Date End Date Luis E Naaryan MD [facility] [address] [place] [address] PCP - General Family Medicine 03/26/19 01/19/22 documented as of this encounter
--- OUTSIDE RECORDS SUMMARY | 2024-06-07 13:42 | XMS_ITS | Encounter Summary ---
Author Organization [facility] Address [facility] [place] [address] Care Team Providers Care Physician Specialist Name Role Phone Luis E Narayan MD Primary Care Provider [phone] Encounter Details Date Type Department Care Team (Late st Contact Info) Description 05/09/2019 Orders Only Sleep Center at [facility] [address] [place] [address] Jhonny Morataya MD [facility] [place] [address] Social History Tobacco Use Types Packs/Day Years [...] Medical History: Diagnosis Date ??? Atherosclerosis of [place] coronary artery of [place] heart with angina pectoris 10/09/2007 History of [...] AM EST Office Visit Internal Medicine at [address] [address] Daryn Garrett MD [facility] DR LILI [place] [address] 10/02/2024 1:00 PM EDT Office [place] [address] Juanpablo Hernandez MD [facility] [place] [address] 01/30/2025 1:30 PM EDT Laboratory Appointment Lab at [facility] Hematology Oncology [address] [place] [phone] 01/30/2025 3:[address] [place] [place] [address] Arturo Cordero MD [facility] DR [place] [address] 01/30/2025 4:15 PM EDT Office Visit [place]ology [place] [address] Arutro Cordero MD [facility] DR [place] [address] Scheduled Procedures Name Priority Associated Diagnoses Date/Ti me EGD, UPPER GI ENDOSCOPY (WRV U 2.09) Irritable bowel syndrome with constipation COLONOSCOPY, DIAGNOSTIC (WRV U 3.26) Irritable bowel syndrome with constipation documented as of this encounter Visit Diagnoses Not on filedocumented in this encounter Care Teams Physician Specialist Relationship Specialty Start Date End Date Luis E Narayan MD [facility] DR LILI [place] [address] PCP - General Family Medicine 03/26/19 01/19/22 documented as of this encounter
--- OUTSIDE RECORDS SUMMARY | 2024-06-07 13:43 | XMS_ITS | Encounter Summary ---
Author Organization [facility] Address [facility] [place] [address] Care Team Providers Care Clinical Practitioner Name Role Phone Brenda Canchola MD Primary Care Provider [phone] Encounter Details Date Type Department Care Team (Late st Contact Info) Description 06/15/2010 2:40 PM EST Follow-[place] [address] Noreen Brambila MD [facility] [place] [address] Social History Tobacco Use Types Packs/Day Years [...] EST Office Visit Internal Medicine at [address] [place] [address] Daryn Garrett MD [facility] L[facility]I [place] [address] 10/02/2024 1:00 PM EDT Office [place] [phone] Juanpablo Hernandez MD [facility] [place] [address] 01/30/2025 1:30 PM EDT Laboratory Appointment Lab at [facility] Hematology Oncology [address] [place] [address] 01/30/2025 3:[address] [place] [address] Arturo Cordero MD [facility] [address] [place] [address] 01/30/2025 4:15 PM EDT Office Visit Hematology [place] [address] Arturo Cordero MD [facility] [address] [place] [address] Scheduled Procedures Name Priority Associated Diagnoses Date/Ti me EGD, UPPER GI ENDOSCOPY (WRV U 2.09) Irritable bowel syndrome with constipation COLONOSCOPY, DIAGNOSTIC (WRV U 3.26) Irritable bowel syndrome with constipation documented as of this encounter Visit Diagnoses Not on filedocumented in this encounter Care Teams Clinical Practitioner Relationship Specialty Start Date End Date Brenda Canchola MD [address] [place] [address] PCP - General 06/01/10 03/25/19 documented as of this encounter
--- OUTSIDE RECORDS SUMMARY | 2024-06-07 13:43 | XMS_ITS | Encounter Summary ---
Author Organization [facility] [place] [address] Care Team Providers Care Wellness Manager Name Role Phone Brenda Canchola MD Primary Care Provider [phone] Encounter Details Date Type Department Care Team (Late st Contact Info) Description 09/15/2011 Ancillary Procedure Radiology Library [place] [phone] Luis E Narayan MD [facility] DR LILI [place] [address] Social History Tobacco Use Types Packs/Day Years [...] at [facility] [address] [place] [address] Daryn Garrett MD [facility] DR LILI [place] [address] 10/02/2024 1:00 PM EDT Office [place] [address] Juanpablo Hernandez MD [facility] [place] [address] 01/30/2025 1:30 PM EDT Laboratory Appointment Lab at [facility] Hematology Oncology [address] [place] [phone] 01/30/2025 3:[address] [place] [address] Arturo Cordero MD [facility] DR [place] [address] 01/30/2025 4:15 PM EDT Office Visit Hematology [place] [address] Arturo Cordero MD [facility] DR [place] [address] Scheduled Procedures Name Priority Associated Diagnoses Date/Ti [...] Only Mammo (09/15/2011 12:00 AM EST) Narrative [facility] - 05/24/2019 9:40 PM EST This exam is auto-finalizing. It's purpose is for storage only. Luis E Narayan MD IMG FILM LIBRARY OR DERABLES [place] documented in this encounter Visit Diagnoses Not on filedocumented in this encounter Care Teams Wellness Manager Relationship Specialty Start Date End Date Brenda Canchola MD [address] [place] [address] PCP - General 06/01/10 03/25/19 documented as of this encounter
--- OUTSIDE RECORDS SUMMARY | 2024-06-07 13:43 | XMS_ITS | Encounter Summary ---
Author Organization [facility] [place] [address] Care Team Providers Care Tool Crib Supervisor Name Role Phone Brenda Canchola MD Primary Care Provider [phone] Encounter Details Date Type Department Care Team (Late st Contact Info) Description 12/14/2012 Ancillary Procedure Radiology Library at [facility] [place] [phone] Luis E Narayan MD [facility] DR LILI [place] [address] Social History Tobacco Use Types Packs/Day Years [...] Office Visit Internal Medicine at [facility] [address] [place] [address] Daryn Garrett MD [facility] DR LIL[place] [address] 10/02/2024 1:00 PM EDT Office [place] [address] Juanpablo Hernandez MD [facility] [place] [address] 01/30/2025 1:30 PM EDT Laboratory Appointment Lab at [facility] Hematology Oncology [address] [place] [phone] 01/30/2025 3:[address] [place] [address] Arturo Cordero MD [facility] DR [place] [address] 01/30/2025 4:15 PM EDT Office Visit Hematology [place] [address] Arturo Cordero MD [facility] DR [place] [address] Scheduled Procedures Name Priority Associated Diagnoses Date/Ti [...] Mammo (12/14/2012 12:00 AM EDT) Narrative [facility]NOTE 3] - 05/24/2019 9:36 PM EST This exam is auto-finalizing. It's purpose is for storage only. Luis E Narayan MD IMG FILM LIBRARY OR DERABLES [place], [place] documented in this encounter Visit Diagnoses Not on filedocumented in this encounter Care Teams Tool Crib Supervisor Relationship Specialty Start Date End Date Brenda Canchola MD [address] [place] [address] PCP - General 06/01/10 03/25/19 documented as of this encounter
--- OUTSIDE RECORDS SUMMARY | 2024-06-07 13:43 | XMS_ITS | Encounter Summary ---
Author Organization [facility] [place] [address] Care Team Providers Care Bindery Operator Name Role Phone Brenda Canchola MD Primary Care Provider [phone] Encounter Details Date Type Department Care Team (Late st Contact Info) Description 01/21/2019 Ancillary Procedure Radiology Library at [facility] [place] [phone] Luis E Narayan MD [facility] DR LILI WALKER-[place] [address] Social History Tobacco Use Types Packs/Day Years [...] at [facility] [address] [place] [address] Daryn Garrett MD [facility] DR LILI WALKER [place] [address] 10/02/2024 1:00 PM EDT Office [place] [address] Juanpablo Hernandez MD [facility] [place] [address] 01/30/2025 1:30 PM EDT Laboratory Appointment Lab at [facility] Hematology Oncology [address] [place] [phone] 01/30/2025 3:[address] [place] [address] Arturo Cordero MD [facility] DR HEMATOLOGY [place] [address] 01/30/2025 4:15 PM EDT Office Visit Hematology [place] [address] Arturo Cordero MD [facility] DR HEMATOLOGY [place] [address] Scheduled Procedures Name Priority Associated Diagnoses Date/Ti [...] DX Chest (01/21/2019 12:00 AM EDT) Narrative [facility] - 05/24/2019 9:38 PM EST This exam is auto-finalizing. It's purpose is for storage only. Luis E Narayan MD IMG FILM LIBRARY OR DERABLES [place], [place] documented in this encounter Visit Diagnoses Not on filedocumented in this encounter Care Teams Bindery Operator Relationship Specialty Start Date End Date Brenda Canchola MD [address] [place] [address] PCP - General 06/01/10 03/25/19 documented as of this encounter
--- OUTSIDE RECORDS SUMMARY | 2024-06-07 13:43 | XMS_ITS | Encounter Summary ---
Author Organization [facility] [place] [address] Care Team Providers Care Professional Engineer Name Role Phone Brenda Canchola MD Primary Care Provider [phone] Encounter Details Date Type Department Care Team (Late st Contact Info) Description 03/18/2019 Ancillary Procedure Radiology Library at [facility] [place] [phone] Luis E Narayan MD [facility] DR LILI WALK[place] [address] Social History Tobacco Use Types Packs/Day Years [...] at [facility] [address] [place] [address] Daryn Garrett MD [facility] DR LILI [place] [address] 10/02/2024 1:00 PM EDT Office [place] [address] Juanpablo Hernandez MD [facility] [place] [address] 01/30/2025 1:30 PM EDT Laboratory Appointment Lab at [facility] Hematology Oncology [address] [place] [address] 01/30/2025 3:[address] [place] [address] Arturo Cordero MD [facility] DR HEMATOLOGY [place] [address] 01/30/2025 4:15 PM EDT Office Visit Hematology [place] [address] Arturo Cordero MD [facility] DR HEMATOLOGY [place] [address] Scheduled Procedures Name Priority Associated Diagnoses Date/Ti [...] Ultrasound Study (03/18/2019 12:00 AM EDT) Narrative [facility] - 03/28/2019 11:02 AM EDT This exam is auto-finalizing. It's purpose is for storage only. Luis E Narayan MD IMG FILM LIBRARY OR DERABLES [place], [place] documented in this encounter Visit Diagnoses Not on filedocumented in this encounter Care Teams Professional Engineer Relationship Specialty Start Date End Date Brenda Canchola MD [address] [place] [address] PCP - General 06/01/10 03/25/19 documented as of this encounter
--- OUTSIDE RECORDS SUMMARY | 2024-06-07 13:43 | XMS_ITS | Encounter Summary ---
[place] [address] Care Team Providers Care Long Chain Dyeing Machine Operator Name Role Phone Brenda Renee MD Primary Care Provider [phone] Encounter Details Date Type Department Care Team (Latest Contact Info) Description 07/22/2013 3:11 PM EST - 07/22/2013 11:59 PM EST Hospital [place] [address] CLINIC, Brenda Greenwood MD [address] [place] [address] Discharge Disposition: Home Social History [...] Gramajo AGE: 52 y.o. : 1960 Female [phone] (home) Telephone Information: PCP BOBBIN DUMPER BRENDA RENEE MD None Allergies Allergen Reactions ??? Codeine Phosphate Nausea And Vomiting ??? Erythromycin Base Nausea Only ??? Nsaids (Non-Steroidal Anti-Inflammatory Drug) Nausea And Vomiting Date/Time of call: July 19, 2013/1:37 PM/ PREVIOUS MRI SCAN? Yes, many years ago at [facility] HEIGHT: 63 1/2 WEIGHT: 270# (confirmed large [...] HR. BEFORE SCHEDULED SCAN AND HAVE A BRAILLE CODER AVAILABLE. PT STATED TO CIRCULAR TANK COOPER THAT THE SEDATION WAS EFFECTIVE FOR SCAN: Y N COMMENTS: This patient has been informed that they require a horse and wagon driver to drive them home after this procedure. In the absence of a horse and wagon driver, IR will not be able to [...] EST Office Visit Internal Medicine at [address] [address] Daryn Garrett MD [facility] DR LILI WALKER [place] [address] 10/02/2024 1:00 PM EDT Office [place] [address] Juanpablo Hernandez MD [facility] [place] [address] 01/30/2025 1:30 PM EDT Laboratory Appointment Lab at [facility] Hematology Oncology [address] [place] [phone] 01/30/2025 3:[address] [place] [address] Arturo Cordero MD [facility] DR HEMATOLOGY [place] [address] 01/30/2025 4:15 PM EDT Office Visit Hematology and Oncology at [facility] [place] [address] Artruo Cordero MD [facility] DR HEMATOLOGY [place] [address] Scheduled Procedures Name Priority Associated Diagnoses Date/Ti [...] of the clinical situation. (Reference-Loreta et al, [id number]) Findings: (prevalence in patients without low back pain), Diskdegeneration (decreased T2 signal, height loss, bulge) (91%), Disk T2-signal loss(83%), Disk height loss (56%), Disk bulge (64%), Disk protrusion (32%), Annular fissure (38%). Film and interpretation reviewed by the attending Brenda Renee MD IMG MRI ORDERABLES documented in this encounter Visit Diagnoses Not on filedocumented in this encounter Care Teams Long Chain Dyeing Machine Operator Relationship Specialty Start Date End Date Brenda Renee MD [address] [place] [address] PCP - General 06/01/10 03/25/19 documented as of this encounter
--- OUTSIDE RECORDS SUMMARY | 2024-06-07 13:43 | XMS_ITS | Encounter Summary ---
Author Organization [facility] [place] [address] Care Team Providers Care Executive Recruiter Name Role Phone Brenda Canchola MD Primary Care Provider [phone] Encounter Details Date Type Department Care Team (Late st Contact Info) Description 07/14/2010 2:30 PM EST [place] [phone] Chuy Barbosa MD [facility] [place] [place] [address] Discharge Disposition: Home Social History Tobacco Use [...] AM EST Office Visit Internal Medicine at [address] [place] [address] Daryn Garrett MD [facility] DR LIL[place] [address] 10/02/2024 1:00 PM EDT Office [place] [address] Juanpablo Hernandez MD [facility] [place] [address] 01/30/2025 1:30 PM EDT Laboratory Appointment Lab at [facility] Hematology Oncology [address] [place] [address] 01/30/2025 3:[address] [place] [phone] Arturo Cordero MD [facility] DR [place] [address] 01/30/2025 4:15 PM EDT Office Visit Hematology [place] [address] Arturo Cordero MD [facility] DR [place] [address] Scheduled Procedures Name Priority Associated Diagnoses Date/Ti me EGD, UPPER GI ENDOSCOPY (WRV U 2.09) Irritable bowel syndrome with constipation COLONOSCOPY, DIAGNOSTIC (WRV U 3.26) Irritable bowel syndrome with constipation documented as of this encounter Visit Diagnoses Not on filedocumented in this encounter Care Teams Executive Recruiter Relationship Specialty Start Date End Date Brenda Canchola MD [address] [place] [address] PCP - General 06/01/10 03/25/19 documented as of this encounter
--- OUTSIDE RECORDS SUMMARY | 2024-06-07 13:43 | XMS_ITS | Encounter Summary ---
[place] [address] Care Team Providers Care Security And Compliance Analyst Name Role Phone Brenda Canchola MD Primary Care Provider Reason for Visit * Reason Comments Follow-up neurocognitive impai rment Encounter Details Date Type Department Care Team (Late st Contact Info) Description 10/14/2010 3:00 PM EDT [place] [address] Chuy Barbosa MD [facility] [place] [address] Forgetfulness (Primary Dx) Discharge Disposition: Home Social [...] 5:34 PM EDTAssociated Problem(s): Altered mental status (Resolved 05/27/2024) The patient returns for followup regarding reviewing [...] EST Office Visit Internal Medicine at [address] [address] Daryn Garrett MD [facility] DR LILI WALKER - PRIMARY CARE [place], [place] [address] 10/02/2024 1:00 PM EDT Office [place] [phone] Juanpablo Hernandez MD [facility] [place] [address] 01/30/2025 1:30 PM EDT Laboratory Appointment Lab at [facility] Hematology Oncology [address] [place] [phone] 01/30/2025 3:[address] [place] [address] Arturo Cordero MD [facility] HEMATOLOGY AND ONCOLOGY [place], [place] [address] 01/30/2025 4:15 PM EDT Office Visit Hematology [place] [address] Arturo Cordero MD [facility] [place] [address] Scheduled Procedures Name Priority Associated Diagnoses Date/Ti me EGD, UPPER GI ENDOSCOPY (WRV U 2.09) Irritable bowel syndrome with constipation COLONOSCOPY, DIAGNOSTIC (WRV U 3.26) Irritable bowel syndrome with constipation documented as of this encounter Visit Diagnoses Diagnosis Forgetfulness- Primary Other general symptoms documented in this encounter Care Teams Security And Compliance Analyst Relationship Specialty Start Date End Date Brenda Canchola MD [address] [place] [address] PCP - General 06/01/10 03/25/19 documented as of this encounter
--- OUTSIDE RECORDS SUMMARY | 2024-06-07 13:43 | XMS_ITS | Encounter Summary ---
Author Organization [facility] [place] [address] Care Team Providers Care President/Gm Production & Live Experiences Name Role Phone Brenda Canchola MD Primary Care Provider [phone] Encounter Details Date Type Department Care Team (Late st Contact Info) Description 03/09/2016 Ancillary Procedure Radiology Library at [facility] [place] [phone] Luis E Narayan MD [facility] DR LILI [place] [address] Social History Tobacco Use Types Packs/Day Years [...] at [facility] [address] [place] [address] Darny Garrett MD [facility] DR LIL[place] [address] 10/02/2024 1:00 PM EDT Office [place] [address] Juanpablo Hernandez MD [facility] [place] [address] 01/30/2025 1:30 PM EDT Laboratory Appointment Lab at [facility] Hematology Oncology [address] [place] [address] 01/30/2025 3:[address] [place] [address] Arturo Cordero MD [facility] DR [place] [address] 01/30/2025 4:15 PM EDT Office Visit Hematology [place] [address] Arturo Cordero MD [facility] DR [place] [address] Scheduled Procedures Name Priority Associated Diagnoses Date/Ti [...] Only Mammo (03/09/2016 12:00 AM EDT) Narrative [facility] - 05/24/2019 9:39 PM EST This exam is auto-finalizing. It's purpose is for storage only. Luis E Narayan MD IMG FILM LIBRARY OR DERABLES [place], [place] documented in this encounter Visit Diagnoses Not on filedocumented in this encounter Care Teams President/Gm Production & Live Experiences Relationship Specialty Start Date End Date Brenda Canchola MD [address] [place] [address] PCP - General 06/01/10 03/25/19 documented as of this encounter
--- OUTSIDE RECORDS SUMMARY | 2024-06-07 13:43 | XMS_ITS | Encounter Summary ---
Author Organization [facility] [place] [address] Care Team Providers Care Poured Pipe Maker Name Role Phone Brenda Canchola MD Primary Care Provider [phone] Encounter Details Date Type Department Care Team (Late st Contact Info) Description 01/31/2014 Ancillary Procedure Radiology Library [place] [phone] Luis E Narayan MD [facility] DR LILI W[place] [address] Social History Tobacco Use Types Packs/Day Years [...] AM EST Office Visit Internal Medicine at [facility] [address] [place] [address] Daryn Garrett MD [facility] DR LILI [place] [address] 10/02/2024 1:00 PM EDT Office [place] [address] Juanpablo Hernandez MD [facility] [place] [address] 01/30/2025 1:30 PM EDT Laboratory Appointment Lab at [facility] [place] Oncology [address] [place] [phone] 01/30/2025 3:[address] [place] [address] Arturo Cordero MD [facility] DR [place]AT[place] [address] 01/30/2025 4:15 PM EDT Office Visit Hematology [place] [address] Arturo Cordero MD [facility] DR [place] [address] Scheduled Procedures Name Priority Associated Diagnoses Date/Ti [...] Only Mammo (01/31/2014 12:00 AM EDT) Narrative [facility] - 05/24/2019 9:46 PM EST This exam is auto-finalizing. It's purpose is for storage only. Luis E Narayan MD IMG FILM LIBRARY OR DERABLES [place], [place] documented in this encounter Visit Diagnoses Not on filedocumented in this encounter Care Teams Poured Pipe Maker Relationship Specialty Start Date End Date Brenda Canchola MD [address] [place] [address] PCP - General 06/01/10 03/25/19 documented as of this encounter
--- OUTSIDE RECORDS SUMMARY | 2024-06-07 13:43 | XMS_ITS | Encounter Summary ---
Author Organization [facility] Address [facility] [place] [address] Care Team Providers Care Traveling Auditor Name Role Phone Brenda Canchola MD Primary Care Provider [phone] Reason for Visit * Reason Comments Cognitive Decline Neuropsychological T esting Encounter Details Date Type Department Care Team (Late st Contact Info) Description 10/14/2010 9:00 AM EDT Office Visit Psychiatry and Behavioral Health at [facility] [place] [address] Kelsey Castrejon, PhD NEUROPSYCHOLOGY DEPT. 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 She was referred to assess [...] on 10/18/2007, Ms. Gramajo was transferred to [facility] from [facility] with non-ST [...] services. 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 She was alert and oriented [...] Comprehension and Cookie Theft Picture (from BDAE) [place] House Naming Test (BNT) Wide Range Achievement Test [...] System (D-KEFS): Raw Scores Range (Scaled Scores) [place] Making: Visual Scanning 15?? 0 err (13) [...] (CVLT-II): Raw Scores Range Acquisition 53/80 Average (0-90-73-12-11) Short-Delay Free Recall 8/16 Low Average Short-Delay [...] Comprehension (from BDAE): 11/12 Within Normal Limits [place] House Naming Test (BNT): 50/60 Low Average Wide [...] her to utilize some type of daily facilities planner/organizer. In addition, feedback about the results [...] Fellow Board Certified in Clinical Neuropsychology Neuropsychology Machine Cementer And FolderAssembler Fluorescent Lightscoil rewind machine operator Director, Neuropsychology Program This report was prepared by Deuce Toledo Psy.D., Postdoctoral Fellow in Neuropsychology, under the supervision of Kelsey Castrejon, Ph.D., ABPP. documented in this encounter Plan of Treatment Upcoming Encounters Date Type Department Care Team (Late st Contact Info) Description 06/28/2024 9:30 AM EST Office Visit Internal Medicine at [address] [phone] Daryn Garrett MD [facility] DR [place] [address] 10/02/2024 1:00 PM EDT Office [place] [phone] Juanpablo Hernandez MD [facility] [place] [address] 01/30/2025 1:30 PM EDT Laboratory Appointment Lab at [facility] Hematology Oncology [address] [place] [phone] 01/30/2025 3:[address] [place] [address] Arturo Cordero MD [facility] [place] [address] 01/30/2025 4:15 PM EDT Office Visit Hematology [place] [address] Arturo Cordero MD [facility] [place] [address] Scheduled Procedures Name Priority Associated Diagnoses Date/Ti me EGD, UPPER GI ENDOSCOPY (WRV U 2.09) Irritable bowel syndrome with constipation COLONOSCOPY, DIAGNOSTIC (WRV U 3.26) Irritable bowel syndrome with constipation documented as of this encounter Visit Diagnoses Diagnosis Cognitive deficits- Primary Unspecified persistent mental disorders due to conditions classified elsewhere documented in this encounter Care Teams Traveling Auditor Relationship Specialty Start Date End Date Brenda Canchola MD [address] [place] [address] PCP - General 06/01/10 03/25/19 documented as of this encounter
--- OUTSIDE RECORDS SUMMARY | 2024-06-07 13:43 | XMS_ITS | Encounter Summary ---
Author Organization [facility] [place] [address] Care Team Providers Care Commercial Loan Manager Name Role Phone Brenda Canchola MD Primary Care Provider [phone] Encounter Details Date Type Department Care Team (Late st Contact Info) Description 09/22/2011 Ancillary Procedure Radiology Library [place] [facility] [place] [phone] Luis E Narayan MD [facility] DR LILI WALKER-[place] [address] Social History Tobacco Use Types Packs/Day Years [...] EST Office Visit Internal Medicine at [facility] [address] [place] [address] Daryn Garrett MD [facility] DR LILI WALKER - [place] [address] 10/02/2024 1:00 PM EDT Office [place] [address] Juanpablo Hernandez MD [facility] DR [place] [address] 01/30/2025 1:30 PM EDT Laboratory Appointment Lab at [facility] Hematology Oncology [address] [place] [phone] 01/30/2025 3:[address] [place] [address] Arturo Cordero MD [facility] DR HEMATOLOGY [place] [address] 01/30/2025 4:15 PM EDT Office Visit Hematology [place] [address] Arturo Cordero MD [facility] DR HEMATOLOGY [place] [address] Scheduled Procedures Name Priority Associated Diagnoses Date/Ti [...] Only Mammo (09/22/2011 12:00 AM EDT) Narrative [facility] - 05/24/2019 9:45 PM EST This exam is auto-finalizing. It's purpose is for storage only. Luis E Narayan MD IMG FILM LIBRARY OR DERABLES [place], [place] documented in this encounter Visit Diagnoses Not on filedocumented in this encounter Care Teams Commercial Loan Manager Relationship Specialty Start Date End Date Brenda Canchola MD [address] [place] [address] PCP - General 06/01/10 03/25/19 documented as of this encounter
--- OUTSIDE RECORDS SUMMARY | 2024-06-07 13:43 | XMS_ITS | Encounter Summary ---
Author Organization [facility] [place] [address] Care Team Providers Care Locomotive Crane Operator Name Role Phone Brenda Canchola MD Primary Care Provider [phone] Encounter Details Date Type Department Care Team (Late st Contact Info) Description 01/22/2019 Ancillary Procedure Radiology Library at [facility] [place] [phone] Luis E Narayan MD [facility] LILI [place] [address] Social History Tobacco Use Types Packs/Day Years [...] at [facility] [address] [place] [address] Daryn Garrett MD [facility] LIL[place] [address] 10/02/2024 1:00 PM EDT [place] [address] Juanpablo Hernandez MD [facility] [place] [place] [address] 01/30/2025 1:30 PM EDT Laboratory Appointment Lab at [facility] Hematology Oncology [address] [place] [phone] 01/30/2025 3:[address] [place] [place] [address] Arturo Cordero MD [facility] DR [place] [address] 01/30/2025 4:15 PM EDT Office Visit [place] [address] Arturo Cordero MD [facility] DR [place] [address] Scheduled Procedures Name Priority Associated Diagnoses Date/Ti [...] DX Chest (01/22/2019 12:00 AM EDT) Narrative [facility] - 03/28/2019 10:59 AM EDT This exam is auto-finalizing. It's purpose is for storage only. Luis E Narayan MD IMG FILM LIBRARY OR DERABLES [place], [place] documented in this encounter Visit Diagnoses Not on filedocumented in this encounter Care Teams Locomotive Crane Operator Relationship Specialty Start Date End Date Brenda Canchola MD [address] [place] [address] PCP - General 06/01/10 03/25/19 documented as of this encounter
--- OUTSIDE RECORDS SUMMARY | 2024-06-07 13:43 | XMS_ITS | Encounter Summary ---
Author Organization [facility] [place] [address] Care Team Providers Care Road Maker Name Role Phone Unavailable Primary Care Provider Unavailabl e Encounter Details Date Type Department Care Team (Late st Contact Info) Description 03/11/2009 Ancillary Procedure Radiology Library at [facility] [place] [phone] Luis E Narayan MD [facility] DR LILI WALKER-[place] [address] Social History Tobacco Use Types Packs/Day Years [...] at [facility] [address] [place] [address] Daryn Garrett MD [facility] DR LILI WALKER - [place] [address] 10/02/2024 1:00 PM EDT Office [place] [phone] Juanpablo Hernandez MD [facility] [place] [address] 01/30/2025 1:30 PM EDT Laboratory Appointment Lab at [facility] Hematology Oncology [address] [place] [phone] 01/30/2025 3:[address] [place] [phone] Arturo Cordero MD [facility] DR HEMATOLOGY AND ONCOLOGY [place], [place] [phone] 01/30/2025 4:15 PM EDT Office Visit H[place]ology [place] [phone] Arturo Cordero MD [facility] DR HEMATOLOGY [place] [address] Scheduled Procedures Name Priority Associated Diagnoses Date/Ti [...] Only Mammo (03/11/2009 12:00 AM EDT) Narrative [facility] - 05/24/2019 9:42 PM EST This exam is auto-finalizing. It's purpose is for storage only. Luis E Narayan MD IMG FILM LIBRARY OR DERABLES [place], [place] documented in this encounter Visit Diagnoses Not on filedocumented in this encounter
--- OUTSIDE RECORDS SUMMARY | 2024-06-07 13:43 | XMS_ITS | Encounter Summary ---
[place] [address] Care Team Providers Care Inventory Assistant Name Role Phone Brenda Canchola MD Primary Care Provider [phone] Reason for Visit * Reason Comments Anxiety Encounter Details Date Type Department Care Team ([facility] st Contact Info) Description 02/14/2019 9:50 PM EDT - 02/15/2019 12:12 AM EDT [place] [address] Tony Monique MD [address] [place] [address] [place] [address] Anxiety Discharge Disposition: Home Social History Tobacco [...] sent through Care Everywhere. * Anxiety Disorder (Bahamian) * Generalized Anxiety Disorder: General Info (Bahamian) documented in this encounter Medications at Time of Discharge Medication Sig Dispensed Refills Start Date End Date amLODIPine (NORVASC) 5 mg Tablet Take 5 mg by mouth daily. 4 02/12/2019 04/09/2019 simvastatin (ZOCOR) 10 mg Tablet Take 10 mg by mouth daily. 4 11/26/2018 04/09/2019 fluticasone propionate (FLONASE) 50 mcg/actuation [place], Suspension 50 sprays by Each Nare route [...] as recent psychogenic polydipsia with admission to [facility] and was discharged roughly 1 week ago. [...] with anxiety. Patient was recently admitted to [place] in mid-January with community acquired pneumonia. 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 She was discharged ~1wk ago. Patient reports that she has edema with bilateral lower extremity swelling, and that was her primary concern for coming into the emergency department tonight. She was also concerned because her home blood pressure monitor was not working. She had bilateral lower extremity swelling during her stay at [facility] last week. She was given a diuretic [...] AM EST Office Visit Internal Medicine at [facility] [address] [place] [address] Daryn Garrett MD [facility] DR LILI WALKER [place] [address] 10/02/2024 1:00 PM EDT Office Visit Ophthalmology at [place] [phone] Juanpablo Hernandez MD [facility] DR OPHTHALM[place] [address] 01/30/2025 1:30 PM EDT Laboratory Appointment Lab at [facility] Hematology Oncology [address] [place] [phone] 01/30/2025 3:[address] [place] [phone] Arturo Cordero MD [facility] DR HEMATOLOGY AND [place] [address] 01/30/2025 4:15 PM EDT Office Visit Hematology [place] [phone] Arturo Cordero MD [facility] DR [place] [address] Scheduled Procedures Name Priority Associated Diagnoses Date/Ti [...] Normal [facility] RBC Morphology Normal [facility] Blood specimen (specimen) 02/14/2019 10:54 PM EDT 02/14/2019 11:09 PM EDT Narrative Resulting Agency Comment Spec In Lab Yahir Okeefe MD HEMATOLOGY ORDERABL ES Performing Organization Address City/[facility]/ZIP Co de Phone Number [facility] [place] [address] * Gold Tube HOLD (02/14/2019 10:54 PM EDT) [facility] Gold Hold Sample in lab. [facility] Blood specimen (specimen) Venous Draw / Unknown 02/14/2019 10:54 PM EDT 02/14/2019 11:09 PM EDT Yahir Okeefe MD CHEMISTRY ORDERABLE S [facility] [place] [address] * Blue Tube HOLD (02/14/2019 10:54 PM EDT) [facility] Signature Blue Hold Sample in lab. [facility] Blood specimen (specimen) Venous Draw / Unknown 02/14/2019 10:54 PM EDT 02/14/2019 11:09 PM EDT Yahir Okeefe MD HEMATOLOGY ORDERABL ES Performing Organization Address City/[facility]/[place] [address] * Differential, Automated (02/14/2019 10:54 PM EDT) Neutrophil % 52.0 % [facility] Neutrophil Absolute 3.75 1.70 - 6.10 x10(3)/[facility] Lymph % 35.2 % [facility] Lymphocytes Abs 2.5 0.9 - 3.2 x10(3)/[facility] Monocyte % 9.0 % [facility] Monocyte Abs 0.6 0.3 - 0.9 x10(3)/[facility] Eos % 2.8 % [facility] Eosinophils Abs 0.2 0.0 - 0.4 x10(3)/[facility] Basophil % 0.6 % [facility] Baso Absolute 0.0 0.0 - 0.1 x10(3)/[facility] Immature Gran % 0.40 % [facility] Comment: Immature granulocytes(IG's)percentage and absolute count will include metamyelocytes, myelocytes, and promyelocytes. Blood smears from CBCs yielding IG's will be scanned manually for concordance. If this scan disagrees with the automated IG or if promyelocytes are noted, a manual differential will be performed. Immature Gran Absolute 0.03 0.00 - 0.04 x10(3)/[facility] Blood specimen (specimen) 02/14/2019 10:54 PM EDT 02/14/2019 11:09 PM EDT Narrative Resulting Agency Comment Spec In Lab Yahir Okeefe MD HEMATOLOGY ORDERABL ES Performing Organization Address City/[facility]/ZIP Co de Phone Number [facility] [place] [address] * (ABNORMAL) Hemogram (02/14/2019 10:54 PM EDT) White Blood Cell 7.2 4.0 - 9.5 x10(3)/ L [facility] Red Blood Cell 4.11 4.00 - 5.21 x10(6)/ L [facility] Hemoglobin 12.0 11.7 - 15.5 gm/dL [facility] Hematocrit 36.3 35.7 - 45.8 % [facility] Mean Cell Volume 88.3 82.6 - 94.4 fL [facility] Mean Cell Hemoglobin 29.2 27.1 - 32.0 pg [facility] Mean Cell Hemoglobin Concentration 33.1 31.7 - 35.0 gm/dL [facility] Platelet 366(H) 145 - 357 x10(3)/[facility]AT[facility] RDW Standard Deviation 45.5 37.0 - 46.0 fL [facility] RDW coefficient of variation 14.3(H) 11.5 - 14.1 % [facility] Mean Platelet Volume 8.6 7.6 - 12.9 fL [facility] NRBC% auto 0.0 % [facility] NRBC Absolute 0.000 0.000 - 0.000 x10(3)/[facility] Blood specimen (specimen) 02/14/2019 10:54 PM EDT 02/14/2019 11:09 PM EDT Narrative Resulting Agency Comment Spec In Lab Yahir Okeefe MD HEMATOLOGY ORDERABL ES [facility] [place] [address] * T4, free (02/14/2019 10:54 PM EDT) Free T4 1.00 0.93 - 1.70 ng/dL [facility] Blood specimen (specimen) 02/14/2019 10:54 PM EDT 02/14/2019 11:09 PM EDT Narrative Resulting Agency Comment Spec In Lab Tony Monique MD CHEMISTRY ORDERABLES Performing Organization Address City/[facility]/ZIP Co de Phone Number [facility] [place] [address] * (ABNORMAL) TSH (02/14/2019 10:54 PM EDT) Thyroid Stimulating Hormone 4.60(H) 0.27 - 4.20 mcIU/mL [facility] Blood specimen (specimen) 02/14/2019 10:54 PM EDT 02/14/2019 11:09 PM EDT Narrative Resulting Agency Comment Spec In Lab Tony Monique MD CHEMISTRY ORDERABLES Performing Organization Address [facility] Co de Phone Number [facility] [place] [address] * Basic Metabolic Panel (non-fasting) (02/14/2019 10:54 PM EDT) Glucose 147 65 - 199 mg/dL [facility] Comment:Diabetes: >=200 mg/d L plus symptoms Blood Urea Nitrogen 11 8 - 18 mg/dL [facility] Creatinine 0.76 0.70 - 1.20 mg/dL [facility] Sodium 140 135 - 145 mmol/L [facility] Potassium 3.9 3.5 - 5.0 mmol/L [facility] Comment: Please note: ??Patients with WBC >100,000 may have falsely elevated Potassium levels. ??For accurate Potassium quantification in these patients send serum separator tube (gold top) for subsequent determinations. ??Contact the Clinical Chemistry Laboratory if there are any questions. Chloride 102 98 - 107 mmol/L [facility] Carbon Dioxide 28 22 - 31 mmol/L [facility] Anion Gap 10 5 - 15 mmol/L [facility] Calcium 9.2 8.5 - 10.5 mg/dL [facility] Est Glomerular Filtration Rate 86 >=60 mL/min/1. 73 m?? [facility] Comment: The eGFR was calculated using the CKD-EPI equation. As with all creatinine based estimates of kidney function, eGFR values calculated with the CKD-EPI equation are not accurate in patients with acute kidney failure, extremes of body mass or the acutely ill. http://[employer]/[facility] ADAnkf eGFR 100 >=60 mL/min/1. 73 m?? [facility] Comment: The eGFR was calculated using the CKD-EPI equation. As with all creatinine based estimates of kidney function, eGFR values calculated with the CKD-EPI equation are not accurate in patients with acute kidney failure, extremes of body mass or the acutely ill. [email or web address] Blood specimen (specimen) 02/14/2019 10:54 PM EDT 02/14/2019 11:09 PM EDT Narrative Resulting Agency Comment Spec In Lab Tony Monique MD CHEMISTRY ORDERABLES [facility] [place] [id number] * EKG 12 Lead (02/14/2019 10:28 PM EDT) Ventricular rate 70 BPM MUSE SYSTEM Atrial Rate 70 BPM MUSE SYSTEM P-R Interval 162 ms MUSE SYSTEM QRS Duration 90 ms MUSE SYSTEM Q-T Interval 386 ms MUSE SYSTEM QTC Calculated (Bezet) 416 ms MUSE SYSTEM Calculated P [place] 48 degrees MUSE SYSTEM Calculated R [place] 7 degrees MUSE SYSTEM Calculated T [place] 33 degrees MUSE SYSTEM INTERPRETATION Sinus rhythm with Premature atrial complexes with Aberrant conduction Otherwise normal ECG When compared with ECG of 19-OCT-2007 07:46, Aberrant conduction is now Present T wave inversion no longer evident in Lateral leads Confirmed by MD Herminia, Jak ([id number]) on 02/15/2019 8:07:37 AM MUSE SYSTEM 02/14/2019 10:2 8 PM EDT 02/15/2019 8:07 AM EDT Tony Monique MD ECG ORDERABLES MUSE SYSTEM documented in this encounter Visit Diagnoses Diagnosis Anxiety Anxiety state, unspecified documented in this encounter Care Teams Inventory Assistant Relationship Specialty Start Date End Date Brenda Canchola MD [address] [place] [address] PCP - General 06/01/10 03/25/19 documented as of this encounter
--- OUTSIDE RECORDS SUMMARY | 2024-06-07 13:43 | XMS_ITS | Encounter Summary ---
Author Organization [facility] [place] [address] Care Team Providers Care Citrix Architect Name Role Phone Brenda Canchola MD Primary Care Provider [phone] Encounter Details Date Type Department Care Team (Late st Contact Info) Description 06/15/2010 2:35 PM EST [place] [address] Sterling Dubois MD [facility] [place] [address] Social History Tobacco Use Types Packs/Day Years [...] EST Office Visit Internal Medicine at [address] [place] [address] Daryn Garrett MD [facility] DR LILI WALKER [place] [address] 10/02/2024 1:00 PM EDT Office [place] [phone] Juanpablo Hernandez MD [facility] [place] [place] [address] 01/30/2025 1:30 PM EDT Laboratory Appointment Lab at [facility] Hematology Oncology [address] [place] [phone] 01/30/2025 3:[address] [place] [phone] Arturo Cordero MD [facility] DR HEMATOLOGY [place] [address] 01/30/2025 4:15 PM EDT Office Visit Hematology [place] [phone] Arturo Cordero MD [facility] DR HEMATOLOGY [place] [address] Scheduled Procedures Name Priority Associated Diagnoses Date/Ti me EGD, UPPER GI ENDOSCOPY (WRV U 2.09) Irritable bowel syndrome with constipation COLONOSCOPY, DIAGNOSTIC (WRV U 3.26) Irritable bowel syndrome with constipation documented as of this encounter Visit Diagnoses Not on filedocumented in this encounter Care Teams Citrix Architect Relationship Specialty Start Date End Date Brenda Canchola MD [address] [place] [address] PCP - General 06/01/10 03/25/19 documented as of this encounter
--- OUTSIDE RECORDS SUMMARY | 2024-06-07 13:43 | XMS_ITS | Encounter Summary ---
Author Organization [facility] [place] [address] Care Team Providers Care Revenue Integrity Analyst Name Role Phone Brenda Canchola MD Primary Care Provider [phone] Encounter Details Date Type Department Care Team (Late st Contact Info) Description 03/19/2019 Ancillary Procedure Radiology Library at [place] [place] [phone] Luis E Narayan MD [facility] DR LILI W[place] [address] Social History Tobacco Use Types Packs/Day Years [...] [facility] [address] [place] [address] Daryn Garrett MD [facility] DR LILI [place] [address] 10/02/2024 1:00 PM EDT Office [place] [address] Juanpablo Hernandez MD [facility] [place] [address] 01/30/2025 1:30 PM EDT Laboratory Appointment Lab at [facility] Hematology Oncology [address] [place] [phone] 01/30/2025 3:[address] [place] [address] Arturo Cordero MD [facility] DR HEMATOLOGY [place] [address] 01/30/2025 4:15 PM EDT Office Visit Hematology [place] [address] Arturo Cordero MD [facility] DR HEMATOLOGY [place] [address] Scheduled Procedures Name Priority Associated Diagnoses Date/Ti [...] & Pelvis (03/19/2019 12:00 AM EDT) Narrative [facility] - 03/28/2019 11:04 AM EDT This exam is auto-finalizing. It's purpose is for storage only. Luis E Narayan MD IMG FILM LIBRARY OR DERABLES [place], [place] documented in this encounter Visit Diagnoses Not on filedocumented in this encounter Care Teams Revenue Integrity Analyst Relationship Specialty Start Date End Date Brenda Canchola MD [address] [place] [address] PCP - General 06/01/10 03/25/19 documented as of this encounter
--- OUTSIDE RECORDS SUMMARY | 2024-06-07 13:43 | XMS_ITS | Encounter Summary ---
Author Organization [facility] [place] [address] Care Team Providers Care Tool And Die Inspector Name Role Phone Unavailable Primary Care Provider Unavailabl e Encounter Details Date Type Department Care Team (Late st Contact Info) Description 03/10/2010 Ancillary Procedure Radiology Library at [facility] [place] [phone] Luis E Narayan MD [facility] DR LILI [place] [address] Social History Tobacco Use Types Packs/Day Years [...] AM EST Office Visit Internal Medicine at [facility] [address] [place] [address] Daryn Garrett MD [facility] DR [place] [address] 10/02/2024 1:00 PM EDT Office [place] [phone] Juanpablo Hernandez MD [facility] [place] [address] 01/30/2025 1:30 PM EDT Laboratory Appointment Lab at [facility] Hematology Oncology [address] [place] [phone] 01/30/2025 3:[address] [place] [phone] Arturo Cordero MD [facility] [address] [place] [address] 01/30/2025 4:15 PM EDT Office Visit Hematology [place] [phone] Arturo Cordero MD [facility] [address] [place] [address] Scheduled Procedures Name Priority Associated Diagnoses Date/Ti [...] Mammo (03/10/2010 12:00 AM EDT) Narrative [facility] - 05/24/2019 9:43 PM EST This exam is auto-finalizing. It's purpose is for storage only. Luis E Narayan MD IMG FILM LIBRARY OR DERABLES [place], [place] documented in this encounter Visit Diagnoses Not on filedocumented in this encounter
--- OUTSIDE RECORDS SUMMARY | 2024-06-07 13:43 | XMS_ITS | Encounter Summary ---
Author Organization [facility] [place] [address] Care Team Providers Care Boilermaker'S Assistant Name Role Phone Unavailable Primary Care Provider Unavailabl e Encounter Details Date Type Department Care Team (Late st Contact Info) Description 03/09/2009 Ancillary Procedure Radiology Library at [facility] [place] [phone] Luis E Narayan MD [facility] DR LILI W[place] [address] Social History Tobacco Use Types Packs/Day Years [...] Medicine at [facility] [address] [address] [facility] DR LILI [place] [address] 10/02/2024 1:00 PM EDT Office [place] [phone] [facility] [place] [address] 01/30/2025 1:30 PM EDT Laboratory Appointment Lab at [facility] Hematology Oncology [address] [place] [phone] 01/30/2025 3:[address] [place] [phone] [facility] DR HEMATOLOGY AND ONCOLOGY [place], [place] [phone] 01/30/2025 4:15 PM EDT Office Visit Hematology [place] [phone] [facility] DR HEMATOLOGY [place] [address] Scheduled Procedures Name Priority Associated Diagnoses Date/Ti [...] Only Mammo (03/09/2009 12:00 AM EDT) Narrative [facility] - 05/24/2019 9:41 PM EST This exam is auto-finalizing. It's purpose is for storage only. Luis E Narayan MD IMG FILM LIBRARY OR DERABLES [place], [place] documented in this encounter Visit Diagnoses Not on filedocumented in this encounter
--- NOTE | 2024-06-07 13:53 | W.ED.GENAD ---
Discharge Plan Discharge Details Chief Complaint: Abd Prob Primary Care Provider: Luis E Narayan ED Provider: Radha Tariq Home Meds and New Rx's Prescriptions: No Action (DME) Aerochamber MV spacer See Dose Instructions .Route .MEDSUPPLY Qty: 1 0RF Dose Instruction: As directed Rx Instructions: As directed fluticasone propionate [Flonase Allergy Relief] 50 mcg/actuation spray,suspension 1 spray KUMAR BID PRN (Reason: nasal congestion) Qty: 9.9 3RF Rx Instructions: administer into each nostril loratadine [Claritin] 10 mg tablet 10 mg PO DAILY lorazepam 1 mg tablet 0.5 - 1 mg PO BID PRN (Reason: anxiety) Qty: 30 0RF Rx Instructions: 12/06/20 PT USES 1 MG AT HS AND 0.5 MG AT NOON nitroglycerin 0.4 mg tablet, sublingual 0.4 mg Sublingual PRN Qty: 25 2RF Rx Instructions: 1 TAB SL PRN melatonin 10 mg capsule 10 mg PO HS PRN Adult 50 Plus Probiotic 4 billion cell capsule 4,000 mmu cells PO DAILY Qty: 30 0RF Rx Instructions: administer with a meal pantoprazole [Protonix] 40 mg tablet,delayed release (DR/EC) 40 mg PO DAILY Qty: 30 12RF ipratropium-albuterol 0.5 mg-3 mg(2.5 mg base)/3 mL solution for nebulization 3 ml inhalation Q4H PRN (Reason: wheezing) Qty: 90 0RF docusate sodium 100 mg tablet 100 mg PO DAILY acetaminophen [Tylenol] 325 MG tablet 650 mg PO Q4H PRN CPAP (DME) lancets [OneTouch Delica Lancets] 1 EACH misc 1 ea Intradermal BID Qty: 200 Rx Instructions: DX: 250.00 (DME) OneTouch Ultra Test 1 EACH strip 1 strip Miscellaneous DAILY Qty: 100 Rx Instructions: DX: 250.00 oral meds amlodipine 5 mg tablet 5 mg PO DAILY Qty: 90 4RF Rx Instructions: 1 TAB DAILY clopidogrel [Plavix] 75 mg tablet 75 mg PO DAILY Qty: 90 4RF Metoprolol Succinate 25 MG TAB.ER.24H 25 mg PO DAILY Qty: 90 4RF Rx Instructions: 1 TAB DAILY simvastatin 10 mg tablet 10 mg PO DAILY Qty: 90 4RF Rx Instructions: 1 TAB DAILY losartan [Cozaar] 100 mg tablet 100 mg PO DAILY Qty: 90 4RF Rx Instructions: 1 TAB DAILY albuterol sulfate [Ventolin HFA] 90 mcg/actuation HFA aerosol inhaler 2 puff IH Q4H PRN (Reason: shortness of breath or wheezing) Qty: 8.5 11RF sucralfate 100 mg/mL suspension 10 ml PO QID Rx Instructions: swish in mouth and swallow; use after food/drink buspirone 30 mg tablet 30 mg PO BID aspirin 81 mg Tablet,Delayed Release (Dr/Ec) 81 mg PO DAILY lamotrigine 100 mg tablet 100 mg PO QAM Patient Comments: TAKE ONE TABLET BY MOUTH TWICE A DAY trazodone 50 mg tablet 100 mg PO HS PRN Rx Instructions: 1-tab at HS PRN (DME) nebulizers [Aeroneb Go Nebulizer] [facility] See Rx Instructions .Route Qty: 1 0RF Rx Instructions: As directed Mounjaro 5 mg/0.5 mL pen injector 7.5 mg SUBCUT .weekly metformin 500 mg tablet 1,000 mg PO BID (DME) blood-glucose meter [FreeStyle Lite Meter] Kit See Rx Instructions .ROUTE .MEDSUPPLY Qty: 1 0RF Rx Instructions: As directed (DME) FreeStyle Lite Strips Strip See Rx Instructions .ROUTE .MEDSUPPLY Qty: 10 0RF Rx Instructions: As directed HPI General Mode of arrival: ambulatory. Date/Time Provider Initiated Documentation: 06/07/24 13:29. Limitations to Documentation: no limitations. Information obtained by: patient, RN notes reviewed and old records reviewed. HPI Narrative: 63-year-old female presents to the ER with a chief complaint of continued left lower quadrant abdominal pain and intermittent vaginal itching and burning after being diagnosed with diverticulitis the beginning of April. She reports since then she has seen PCP at [facility] and gastroenterology at [facility] this week. Her PCP put her on an additional round of Augmentin which she states that she finished on Monday. She reports that the structural steel fitter scheduled her for a colonoscopy and various other further workup. She reports diarrhea however she is taking daily MiraLAX, continue left lower quadrant abdominal pain denies any vomiting fever chills or any other concerns. They are also working her up for possible IBS. She does have a past medical history of hypertension COPD hyperlipidemia, cardiovascular disease, anxiety, sleep apnea and obesity. She has never had a hysterectomy. Related Data Home Medications ?Medication ?Instructions ?Recorded ?Confirmed Cpap 10/24/12 04/13/24 acetaminophen 325 mg tablet 650 mg PO Q4H PRN 10/24/12 06/07/24 (Tylenol) lancets 33 gauge (OneTouch Delica #200 ea 12/15/12 06/07/24 Lancets) blood sugar diagnostic (Bungles JunglesTouch #100 strips 01/24/14 06/07/24 Ultra Test strips) inhalational spacing device #1 ea 05/01/18 06/07/24 (Aerochamber MV spacer) nitroglycerin 0.4 mg sublingual 0.4 mg sublingual PRN #25 tab-caps 05/04/18 06/07/24 tablet amlodipine 5 mg tablet 5 mg PO DAILY #90 tab-caps 07/27/18 06/07/24 clopidogrel 75 mg tablet (Plavix) 75 mg PO DAILY #90 tabs 07/27/18 06/07/24 simvastatin 10 mg tablet 10 mg PO DAILY #90 tab-caps 07/31/18 06/07/24 losartan 100 mg tablet (Cozaar) 100 mg PO DAILY #90 tab-caps 12/27/18 06/07/24 fluticasone propionate 50 1 spray intranasal BID PRN nasal 02/03/19 06/07/24 mcg/actuation nasal congestion #9.9 grams spray,suspension (Flonase Allergy Relief) loratadine 10 mg tablet (Claritin) 10 mg PO DAILY 02/03/19 06/07/24 lorazepam 1 mg tablet 0.5 - 1 mg (0.5 - 1 x 1 mg) PO BID 02/19/19 06/07/24 PRN anxiety #30 tabs albuterol sulfate 90 mcg/actuation 2 puff inhalation Q4H PRN 08/29/19 06/07/24 aerosol inhaler (Ventolin HFA) shortness of breath or wheezing #8.5 grams metformin 500 mg tablet 1,000 mg PO BID 09/12/19 06/07/24 aspirin 81 mg tablet,delayed 81 mg PO DAILY 08/17/20 06/07/24 release lamotrigine 100 mg tablet 100 mg PO QAM 08/17/20 06/07/24 trazodone 50 mg tablet 100 mg PO HS PRN 08/17/20 06/07/24 blood sugar diagnostic (FreeStyle #10 ea 12/06/20 06/07/24 Lite Strips) blood-glucose meter (FreeStyle #1 ea 12/06/20 06/07/24 Lite Meter kit) melatonin 10 mg capsule 10 mg PO HS PRN 02/23/21 06/07/24 lactobacillus combination no.9 4 4,000 mmu cells PO DAILY #30 caps 10/13/21 06/07/24 billion cell capsule (Adult 50 Plus Probiotic) pantoprazole 40 mg tablet,delayed 40 mg PO DAILY #30 tabs 11/25/21 06/07/24 release (Protonix) nebulizers (Aeroneb Go Nebulizer) #1 ea 04/03/22 06/07/24 buspirone 30 mg tablet 30 mg PO BID 03/16/23 06/07/24 sucralfate 100 mg/mL oral 10 ml PO QID 03/16/23 06/07/24 suspension ipratropium 0.5 mg-albuterol 3 mg 3 ml inhalation Q4H PRN wheezing 06/05/23 06/07/24 (2.5 mg base)/3 mL nebulization #90 mL soln docusate sodium 100 mg tablet 100 mg PO DAILY 04/13/24 06/07/24 tirzepatide 5 mg/0.5 mL 7.5 mg subcut .weekly 04/15/24 06/07/24 subcutaneous pen injector (Radha) Previous Rx's ?Medication ?Instructions ?Recorded inhalational spacing device #1 ea 05/01/18 (Aerochamber MV spacer) nitroglycerin 0.4 mg sublingual 0.4 mg sublingual PRN #25 tab-caps 05/04/18 tablet amlodipine 5 mg tablet 5 mg PO DAILY #90 tab-caps 07/27/18 clopidogrel 75 mg tablet (Plavix) 75 mg PO DAILY #90 tabs 07/27/18 simvastatin 10 mg tablet 10 mg PO DAILY #90 tab-caps 07/31/18 losartan 100 mg tablet (Cozaar) 100 mg PO DAILY #90 tab-caps 06/20/19 fluticasone propionate 50 1 spray intranasal BID PRN nasal 02/03/19 mcg/actuation nasal congestion #9.9 grams spray,suspension (Flonase Allergy Relief) lorazepam 1 mg tablet 0.5 - 1 mg (0.5 - 1 x 1 mg) PO BID 02/19/19 PRN anxiety #30 tabs albuterol sulfate 90 mcg/actuation 2 puff inhalation Q4H PRN 08/29/19 aerosol inhaler (Ventolin HFA) shortness of breath or wheezing #8.5 grams blood sugar diagnostic (FreeStyle #10 ea 12/06/20 Lite Strips) blood-glucose meter (FreeStyle #1 ea 12/06/20 Lite Meter kit) lactobacillus combination no.9 4 4,000 mmu cells PO DAILY #30 caps 10/13/21 billion cell capsule (Adult 50 Plus Probiotic) pantoprazole 40 mg tablet,delayed 40 mg PO DAILY #30 tabs 11/25/21 release (Protonix) nebulizers (Aeroneb Go Nebulizer) #1 ea 04/03/22 ipratropium 0.5 mg-albuterol 3 mg 3 ml inhalation Q4H PRN wheezing 06/05/23 (2.5 mg base)/3 mL nebulization #90 mL soln Allergies Allergy/AdvReac Type Severity Reaction Status Date / Time azithromycin AdvReac Mild Nausea Verified 06/07/24 14:11 codeine AdvReac Mild Nausea Verified 06/07/24 14:11 erythromycin base AdvReac Mild Nausea Verified 06/07/24 14:11 ibuprofen AdvReac Mild Nausea Verified 06/07/24 14:11 lisinopril AdvReac Mild cough Verified 06/07/24 14:11 NSAIDS (Non-Steroidal AdvReac Mild Nausea Verified 06/07/24 14:11 Anti-Inflamma General Stated Complaint: Abd Prob MONICA: 3 Review of Systems All systems reviewed & are unremarkable except as noted in HPI and below Gastrointestinal Gastrointestinal: Reports as per HPI, Reports abdominal pain, Reports bloating, Reports diarrhea and Reports loose stools Exam Narrative Exam Narrative: Constitutional: Alert and oriented x3. Appears stated age. Obese body habitus. Head: Normocephalic, no trauma. Chest: RRR, Normal S1, S2, distal pulses intact. Resp: Lungs clear to auscultation bilaterally, no wheezes, rales, or rhonchi. Abdomen: Soft, non-distended, hyper active bowel sounds all 4 quads. Tenderness with palpation to her left lower quadrant. No masses or guarding. Musculoskeletal: Normal gait, Moves all 4 extremities without difficulty. Skin: No suspicious rashes or lesions. Capillary refill less than 2 sec. Neurologic: Cranial nerves II-XII intact. Alert and oriented x 3. Motor: No deficits noted. Sensory: Intact bilaterally all 4 extremities. Hematologic/Lymphatic: No ecchymosis, no lymphadenopathy. Course Vital Signs Vital signs: Vital Signs Temperature 36.3 C L 06/07/24 13:26 Pulse 76 06/07/24 13:26 Respiratory Rate 18 06/07/24 13:26 Blood Pressure 147/71 H 06/07/24 13:26 Pulse Oximetry 98 06/07/24 13:26 Temperature 36.3 C L 06/07/24 13:29 Temperature Source Oral 06/07/24 13:29 Pulse 76 06/07/24 13:29 Respiratory Rate 18 06/07/24 13:29 Respiratory Effort Normal, Non-Labored 06/07/24 13:30 Blood Pressure 147/71 H 06/07/24 13:29 Blood Pressure Position Sitting 06/07/24 13:29 Pulse Oximetry 98 06/07/24 13:29 Oxygen Delivery Method Room Air 06/07/24 13:29 Oxygen Flow Rate 0 06/07/24 13:29 Medical Decision Making 63-year-old female presents to the ER with a chief complaint of continued left lower quadrant abdominal pain and intermittent vaginal itching and burning after being diagnosed with diverticulitis the beginning of April. She reports since then she has seen PCP at [facility] and gastroenterology at [facility] this week. Her PCP put her on an additional round of Augmentin which she states that she finished on Monday. She reports that the structural steel fitter scheduled her for a colonoscopy and various other further workup. She reports diarrhea however she is taking daily MiraLAX, continue left lower quadrant abdominal pain denies any vomiting fever chills or any other concerns. They are also working her up for possible IBS. She does have a past medical history of hypertension COPD hyperlipidemia, cardiovascular disease, anxiety, sleep apnea and obesity. She has never had a hysterectomy. Workup ordered including CBC CMP lipase urinalysis, will repeat CT imaging with oral contrast differential diagnosis includes but not limited to continued diverticulitis, bowel perforation, gastroenteritis, UTI, ovarian cyst or fibroids,. No leukocytosis, CMP largely unremarkable, lipase is slightly elevated at 117, urinalysis shows trace leukocytes however there is squamous contamination. Culture not indicated at this time. Patient is going to CT now after drinking oral contrast. CT result is pending at this time. There is to be handed off to oncoming provider RAEGAN Light pending CT result, I did discuss patient case in details with her. Most expected disposition is discharge home. Patient hemodynamically stable at the time of this dictation. Medical Records Medical records reviewed: Yes I reviewed the patient's medical records. Lab Data Lab results reviewed: Yes I reviewed the patient's lab results. Labs: Laboratory Tests Range/Units 06/07/24 06/07/24 13:40 14:26 WBC (4.4-10.8) 10^3/uL 7.36 RBC (3.93-5.22) 10^6/uL 4.80 Hgb (11.2-15.7) g/dL 14.1 Hct (36.0-46.0) % 42.6 MCV (80-95) fL 89 MCH (27.0-33.0) pg 29.4 MCHC (32.0-36.0) % 33.1 RDW (11.7-14.6) % 13.8 Plt Count (130-400) 10^3/uL 393 MPV (8.0-11.0) fL 9.3 Immature Gran % % 0.4 Neutrophils % % 55.5 Lymphocytes % % 33.3 Monocytes % % 8.7 Eosinophils % % 1.1 Basophils % % 1.0 Nucleated RBC % (0.0-0.3) % 0.0 Absolute Neutrophils (1.2-6.7) 10^3/uL 4.09 Absolute Lymphocytes (1.2-3.4) 10^3/uL 2.45 Absolute Monocytes (0.1-0.8) 10^3/uL 0.64 Absolute Eosinophils (0.0-0.7) 10^3/uL 0.08 Absolute Basophils (0.0-0.2) 10^3/uL 0.07 Sodium (136-145) mmol/L 143 Potassium (3.5-5.1) mmol/L 4.2 Chloride (98-107) mmol/L 106 Carbon Dioxide (21.0-32.0) mmol/L 27.8 Anion Gap (3-11) mmol/L 9.2 BUN (7-18) mg/dL 15 Creatinine (0.55-1.02) mg/dL 1.0 Est GFR (CKD-EPI 2020) (mL/min/1.73m2) 62.91 Glucose (74-106) mg/dL 91 Calcium (8.5-10.1) mg/dL 9.5 Magnesium (1.8-2.4) mg/dL 2.1 Total Bilirubin (0.2-1.0) mg/dL 0.58 AST (15-37) U/L 25 ALT (14-59) U/L 45 Alkaline Phosphatase (46-116) U/L 103 Total Protein (6.4-8.2) g/dL 8.2 Albumin (3.4-5.0) g/dL 4.3 Lipase (<78) U/L 117 H Urine Color (Yellow) Yellow Urine Clarity (Clear) Clear Urine pH (5-8) 5.5 Ur Specific Reading (1.005-1.025) 1.015 Urine Protein (Neg-Trace) mg/dL Negative Urine Ketones (Negative) mg/dL Negative Urine Blood (Negative) Negative Urine Nitrite (Negative) Negative Urine Bilirubin (Negative) Negative Urine Urobilinogen (Up to 0.2) mg/dL 0.2 Ur Leukocyte Esterase (Negative) Trace H Urine RBC (0-2) HPF Negative Urine WBC (0-5) HPF 5-10 Ur Epithelial Cells (Negative) HPF Many Urine Crystals (Negative) HPF Negative Urine Bacteria (Negative) HPF Few Urine Casts (Negative) LPF Negative Urine Mucus (Negative) Trace Urine Other (Negative) Rare Renal Ur Culture Indicated? No/Sq. Contamination Urine Glucose (Negative) mg/dL Negative Quality:SDOH Health Related Social Needs: No Data to Display PFSH All Active Problems Degenerative joint disease of right knee (Acute) Mild 40 mg Depo: 03/20/23 Internal derangement of right knee (Acute) Right knee pain (Acute) Liver cirrhosis secondary to nonalcoholic steatohepatitis (B[place]ERA) (Acute) Chronic diarrhea (Acute) Epigastric pain (Acute) Hyperplastic colon polyp (Acute) ASCVD (arteriosclerotic cardiovascular disease) (Acute) 10/15 anterolat NSTE AZ; stent x 4; 10/15 echo-EF 55%; inf.wall hypokinesis; mild Anxiety (Acute) after AZ decreased memory/concentration--[facility] neurology COPD (chronic obstructive pulmonary disease) (Acute) continues to smoke Depressive disorder (Acute) fatigue Diabetic peripheral neuropathy associated with type 2 diabetes mellitus (Acute 03/03/16) Essential hypertension (Acute 05/03/13) Urinary, incontinence, stress female (Acute 09/13/13) Heart murmur (Acute 09/13/13) 10/21 echo LVEF 70% with LVH, aoritc valve thickened but opens well (no signif aortic stenosis) [facility] Echo 02/05/19 - LVH (mild-mod), EeF= 60-65%, systolic function normal, ascending aorta mildly dilated Hyperlipidemia (Acute 12/18/12) Morbid obesity (Acute) Numbness and tingling in right hand (Acute 03/03/16) Obstructive sleep apnea syndrome (Acute 03/27/10) [facility] sleep lab Pap smear abnormality of cervix with LGSIL (Acute) LGSIL +HPV; BX darcie I Postmenopausal bleeding (Acute 09/21/11) atypical endometrial hyperplasia Sciatica (Acute 07/04/13) left sciatica, MRI [facility] 07/22/13: L3-4 disc extrusion Skin tags, multiple acquired (Acute 02/15/16) Smoker (Acute) Type II diabetes mellitus, uncontrolled (Acute) Asthma (Chronic) Status post arthroscopy of left knee (Acute) History of section (Acute) Family history of malignant neoplasm of breast (Acute 09/11/14) Fever (Acute) She is febrile and has both abdominal and chest symptoms. We will send to the emergency room. Upper respiratory infection (Acute) Hyperglycemia (Acute) Acute bronchospasm (Acute) Seasonal allergies (Acute) History of COPD (Acute) Fatty liver (Acute) Diverticulosis (Acute) Constipation (Acute) Incontinence (Acute) Pedal edema (Acute) Varicose veins of lower extremity (Acute) Bipolar disorder (Chronic) Compliant with therapeutic regimen (Acute) Caren, oral (Acute) Allergic rhinitis (Acute) Medical History Hx of malignant neoplasm of eye History of renal carcinoma Hypertension COPD (chronic obstructive pulmonary disease) Hyperlipidemia Heart murmur Atherosclerotic cardiovascular disease Depression Anxiety Stress incontinence in female Morbid obesity with BMI of 40.0-44.9, adult Plantar fasciitis of left foot Sleep apnea Surgical History H/O esophagogastroduodenoscopy (~03/10/21) S/P colonoscopy (~03/10/21) Stent placement X 4 TO LCX-1995 section (~1981) Cervical Procedure BX DARCIE I Arthroplasty of knee athroscopy not arthroplasty. Family History Mother Personal history of malignant neoplasm UTERINE CA; HYSTERECTOMY AGE 76 Uterine cancer Hysterectomy at 76 Father Heart disease Brother Diabetes Cancer Brother No problems noted. Brother No problems noted. Social History Smoking/Tobacco Use Status: Current every day Tobacco Type: cigarettes Smoking packs per day: 1 Smoking cigarettes per day: 20.0 Smoking risk assessment performed?: Yes Alcohol Intake: current Alcohol Intake frequency: holidays/special occasions only Drug use: Never Substance use type: does not use Household members: significant other Housing: house Communication Needs: None Do you need help understanding health information?: Rarely Pets and animals: Yes Pets and animals: dog(s) Do you think of yourself as: straight/heterosexual Current gender identity: female What is your relationship status?: living with partner How often do you talk on the phone with friends or family?: three or more times per week How often do you get together with friends or relatives?: decline to answer How often do you attend confucianist or yarsanism services?: decline to answer Do you belong to any clubs or organized social groups?: no Panel score (0-1 are the most socially isolated patients): 2 What type of physical activity do you participate in: none Duration: < 15 minutes/day Frequency: daily Katerina/Rastafarian: none Special katerina needs: No Seatbelt use: sometimes Helmet use: Yes Helmet use: always Drive intox 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 Patient getting CT with IV and oral contrast for history of diverticulitis. Was placed on a second round of Augmentin by PCP at [facility]. Finished this on Monday. Here with continued left lower quadrant abdominal pain and vaginal itching and burning. Patient was given 850 mg Diflucan tablet here. Expected disposition is discharge to home. Last updated by Radha Tariq NP at 06/07/24 15:39
[2024-06-07] MEDS: Breeza Beverage 473 ML BTL PO ×2 (13:59→14:00)
[2024-06-07] MEDS: Omnipaque 350 MG/ML 50 ML BTL PO (14:01)
[2024-06-07 14:10] LABS: Bilirubin Negative (Negative); Blood Negative (Negative); Clarity Clear (Clear); Glucose Negative (Negative); Ketones Negative (Negative); Leukocyte Esterase Trace (Negative); Nitrite Negative (Negative); Specific Gravity 1.015 (1.005-1.025); Urobilinogen 0.2 mg/dL (Up to 0.2); pH 5.5 (5-8)
[2024-06-07 14:23] LABS: Epithelial Cells Many HPF (Negative); RBC Negative HPF (0-2)
[2024-06-07 14:24] LABS: Bacteria Few HPF (Negative); Crystals Negative HPF (Negative); Other Cells Rare Renal (Negative)
[2024-06-07 14:25] LABS: C & S Indicated? No/Sq. Contamination; Casts Negative LPF (Negative); Mucus Trace (Negative)
[2024-06-07 14:31] LABS: Abs Immature Grans 0.03 10^3/uL (0.0-0.06); Absolute Basophil Count 0.07 10^3/uL (0.0-0.2); Absolute Eosinophil Count 0.08 10^3/uL (0.0-0.7); Absolute Lymphocyte Count 2.45 10^3/uL (1.2-3.4); Absolute Monocyte Count 0.64 10^3/uL (0.1-0.8); Absolute Neutrophil Count 4.09 10^3/uL (1.2-6.7); Eosinophils % 1.1 %; HCT 42.6 % (36.0-46.0); HGB 14.1 g/dL (11.2-15.7); Immature Grans % 0.4 %; Lymphocytes % 33.3 %; MCH 29.4 pg (27.0-33.0); MCHC 33.1 % (32.0-36.0); MCV 89 fL (80-95); MPV 9.3 fL (8.0-11.0); Monocytes % 8.7 %; Neutrophils % 55.5 %; Platelet Count 393 10^3/uL (130-400); RDW 13.8 % (11.7-14.6); RDW-SD 44.9 fL; WBC 7.36 10^3/uL (4.4-10.8)
[2024-06-07] MEDS: Fluconazole 150 MG TAB PO (14:48)
[2024-06-07 14:54] LABS: ALT 45 U/L (14-59); AST 25 U/L (15-37); Albumin 4.3 g/dL (3.4-5.0); Alkaline Phosphatase 103 U/L (46-116); Anion Gap 9.2 mmol/L (3-11); BUN 15 mg/dL (7-18); Bilirubin, Total 0.58 mg/dL (0.2-1.0); CO2 27.8 mmol/L (21.0-32.0); Calcium 9.5 mg/dL (8.5-10.1); Chloride 106 mmol/L (98-107); Estimated GFR 62.91 (mL/min/1.73m2); Glucose 91 mg/dL (74-106); Lipase 117 U/L (<78); Magnesium 2.1 mg/dL (1.8-2.4); Potassium 4.2 mmol/L (3.5-5.1); Sodium 143 mmol/L (136-145); Total Protein 8.2 g/dL (6.4-8.2)
[2024-06-07] MEDS: Omnipaque 350 MG/ML 100 ML BTL IJ (15:32)
[2024-06-07] MEDS: Normal Saline - Diluent 50 ML VIAL IJ (15:32)
--- NOTE | 2024-06-07 15:46 | DI.CT_ITS ---
Exam(s) CT ABDOMEN PELVIS W EXAM: CT ABDOMEN PELVIS W CLINICAL HISTORY: Diverticulitis, LLQ abd pain. TECHNIQUE: Imaging Protocol: Axial computed tomography images with coronal and sagittal reformatted images were created and reviewed CONTRAST MATERIAL: Intravenous: Omnipaque-350 100cc Oral: Yes. Oral contrast was also administered for bowel opacification. COMPARISON: CT CT ABDOMEN PELVIS W from 03/04/[address] ABDOMEN PELVIS W from 04/15/2024 FINDINGS: VISUALIZED LUNG BASES: No nodules nor pleural effusions evident. ABDOMEN: There is no ascites. LIVER: Liver is again noted be hypodense implying steatosis. There no discrete focal hepatic lesions . No dilated intrahepatic ducts. GALLBLADDER/BILIARY: No obvious gallbladder pathology. CBD is not dilated. PANCREAS: No evidence of pancreatic mass nor dilatation of the pancreatic duct. SPLEEN: Spleen is not enlarged. No obvious intrasplenic lesions. Splenic and portal veins are paten t. ADRENALS: Right adrenal gland unremarkable. There is a focal area of fusiform thickening in the left adrenal gland measuring approximately 1.8 x 1.3 cm. Unchanged from previous. KIDNEYS:Right kidney unremarkable. Evidence of partial left nephrectomy again noted near the inferio r pole. There presently no ominous kidney lesions. Also no cysts in either kidney. Left renal vein is patent.. ABDOMINAL AORTA: Calcified but not enlarged. Common iliac arteries are also calcified but not enlarg ed. LYMPH NODES:There is no retroperitoneal nor paraaortic adenopathy. ABDOMINAL WALL: Fat only containing right inguinal hernia. GI: No evidence of bowel obstruction. There are diverticuli in the left side of the colon as well as in the sigmoid. The recently describe d area of upper sigmoid diverticulitis is again noted with some adjacent fat streaking which appears to have state somewhat decreased from previous. There is no abscess. No free air. PELVIS: GI: No evidence of appendicitis. LYMPH NODES: There is no intrapelvic nor inguinal adenopathy. REPRODUCTIVE: Uterus and adnexal regions unremarkable. No free fluid URINARY BLADDER: No calculi nor obvious masses evident. No gas within the bladder lumen. OSSEOUS: No fractures and no significant osseous lesions. IMPRESSION: 1. Compared to the prior CT scan 04/15/2024 there has been some improvement in the acute diverticulit is findings in the upper left iliac fossa at the junction of the descending-left colon and upper sigm oid. There is no evidence of perforation nor abscess. No bowel obstruction. 2. No evidence of acute appendicitis. 3. Previous partial left nephrectomy. No new mass evident. 4. Small nodule left adrenal gland again noted. Findings discussed by phone with ER provider 06/07/2024 4 p.m. RADIATION DOSE DELIVERED: 854.37mGy.cm Total DLP DATA REPOSITORY: All CT scans at this facility are submitted to the National Radiology Data Registry (NRDR) Dose Index Registry (DIR) with the [employer] ([employer]). RADIATION OPTIMIZATION: All CT scans at this facility use at least one of these dose optimization te chniques: automated exposure control; mA and/or kV adjustment per patient size (includes targeted exa ms where dose is matched to clinical indication); or iterative reconstruction.
--- NOTE | 2024-06-07 16:47 | W.ED.FU ---
Follow Up Plan: 63-year-old female accepted from in no acute distress, CT abdomen and pelvis per radiology discussion interpretation review shows evidence of resolving diverticulitis without additional acute abnormality. Lipase is mildly elevated patient was encouraged to engage in clear liquid diet and have her lipase rechecked this week. Placed on Monistat for reported vulvovaginitis symptoms post antibiotics and given prescription for probiotic given her 2 courses of antibiotics. Encouraged to follow-up for outpatient colonoscopy. Return precautions reviewed and patient expressed understanding
== END 2024-06-07 16:41 | disposition home or self-care (01) ==
PROVIDERS: Registered Nurse Emergency; Emergency Provider Physician Assistant; PCP Family Medicine
DX: R10.32 Left lower quadrant pain (principal); J44.9 Chronic obstructive pulmonary disease, unspecified; I10 Essential (primary) hypertension; E78.5 Hyperlipidemia, unspecified; E11.9 Type 2 diabetes mellitus without complications; F17.210 Nicotine dependence, cigarettes, uncomplicated; Z79.01 Long term (current) use of anticoagulants; Z79.82 Long term (current) use of aspirin; Z79.84 Long term (current) use of oral hypoglycemic drugs; Z79.85 Long-term (current) use of injectable non-insulin antidiabetic drugs
CPT/HCPCS: 80053; 83690; 99285; 74177; 81003; 81015; 83735; 85025; 99284; J3490; Q9967

== ENCOUNTER 2024-08-20 15:42 | Outpatient (CLI) | payer MEDICARE, MEDICAID, SELFPAY ==
--- NOTE | 2024-08-20 15:45 | DI.RAD_ITS ---
Exam(s) XR CHEST 2V PA LATERAL EXAM: XR CHEST 2V PA LATERAL CLINICAL HISTORY: SOB, R06.02, eval pna. TECHNIQUE: 2D digital imaging was performed. COMPARISON: CR XR CHEST 2V PA LATERAL from 04/15/2024 FINDINGS: 2 views: Heart size is upper normal. The mediastinum is not widened. No infiltrates nor pleural effusions. IMPRESSION: No acute pulmonary findings. DATA REPOSITORY: RADIATION DOSE DELIVERED:
--- OUTSIDE RECORDS SUMMARY | 2024-08-20 15:47 | XMS_ITS | Encounter Summary ---
Author Organization [facility] Address [address] [place] [address] Care Team Providers Care Business Continuity Consultant Name Role Phone Brenda Canchola MD Primary Care Provider [phone] Encounter Details Date Type Department Care Team (Late st Contact Info) Description 10/04/2021 Lab Requisition [facility] Pathology & Laboratory Medicine - [address] [id number] Outr Resulting Lab, Provider Social History Tobacco [...] AL ORDERABLES Final Result Performing Organization Address City/[facility]/ZIP Co de Phone Number [facility] [address] [place] [address] * COVID-19 TESTING (10/03/2021 17:23 EDT) COVID-19 rt-PCR Result Negative Negative 10/05/2021 13:[address] [facility] Comment: This test has not [...] performed using the flaquito SARS-CoV-2 assay ([employer] on the Flaquito 6800 System Performing Lab [facility] [address] [facility] Lab 10/05/2021 13:[address] [facility] Swab 10/03/2021 17:2 3 EDT 10/04/2021 21:43 EDT us Provider Outr Resulting Lab MICROBIOLOGY - GENER AL ORDERABLES Final Result Performing Organization Address [facility] Co de Phone Number [facility] [address] [place] [address] documented in this encounter Visit Diagnoses Not on filedocumented in this encounter Care Teams Business Continuity Consultant Relationship Specialty Start Date End Date Brenda Canchola MD [address] [place] [address] [place] [address] PCP - General 08/03/10 documented as of this encounter
--- OUTSIDE RECORDS SUMMARY | 2024-08-20 15:47 | XMS_ITS | Encounter Summary ---
Author Organization [facility] Address [address] [place] [address] Care Team Providers Care Founding Partner Name Role Phone Brenda Canchola MD Primary Care Provider [phone] Encounter Details Date Type Department Care Team (Late st Contact Info) Description 08/17/2020 Lab Requisition [facility] Pathology & Laboratory Medicine - [address] [id number] Outr Resulting Lab, Provider Social History Tobacco [...] Result (FLARES) Negative Negative 08/17/2020 23:57 EST [facility] FLU B RNA Result (FLBRES) Negative Negative 08/17/2020 23:57 EST [facility] RSV RNA Result (RSVRES) Negative Negative 08/17/2020 23:57 EST [facility] Performing Lab [facility] 08/17/2020 23:57 EST [facility] Swab ENTIRE NASOPHARYNX / Unknown 08/17/2020 12:27 EST 08/17/2020 17:13 EST us Provider Outr Resulting Lab MICROBIOLOGY - GENER AL ORDERABLES Final Result Performing Organization Address City/State/[facility] Co de Phone Number [facility] [address] [place] [address] documented in this encounter Visit Diagnoses Not on filedocumented in this encounter Care Teams Founding Partner Relationship Specialty Start Date End Date Brenda Canchola MD [address] [place] [address] [place] [address] PCP - General 08/03/10 documented as of this encounter
--- OUTSIDE RECORDS SUMMARY | 2024-08-20 15:47 | XMS_ITS | Encounter Summary ---
Author Organization [facility] Address [address] [place] [address] Care Team Providers Care Cardiothoracic Surgeon Name Role Phone Brenda Canchola MD Primary Care Provider [phone] Encounter Details Date Type Department Care Team (Late st Contact Info) Description 11/29/2021 Lab Requisition [facility] Pathology & Laboratory Medicine - [facility] [address] [place], [place] [address] Outr Resulting Lab, Provider Social History Tobacco [...] IGA <1.2 <4.0 U/mL 12/01/2021 12:26 EDT [facility] Comment: A negative result may be due to IgA deficiency and does not rule out celiac disease. ? Negative: ??<4.0 U/mL ? Weak Positive: ??4.0 - 10.0 U/mL ? Positive: ??>10.0 U/mL Results were obtained with the [employer] QUANTA Lite R h-tTG IgA ELOY assay on the [employer] DSX. IgA 227 85 - 499 mg/dL 12/01/2021 12:26 EDT [facility] Celiac Disease Interpretation Negative Serology. Celiac disease unlikely. Approximately 10% of patients with celiac disease are seronegative. Patients who are already adhering to a gluten-free diet may also be seronegative. If celiac disease is highly clinically suspected, referral to gastroenterology for additional evaluation is recommended. 12/01/2021 12:26 EDT [facility] Blood VENOUS BLOOD / Unknown 11/29/2021 12:35 EDT 11/29/2021 21:43 EDT us Provider Outr Resulting Lab IMMUNOLOGY AND SEROL OGY ORDERABLES Final Result Performing Organization Address City/State/[facility] Co de Phone Number [facility] [address] [place] [address] documented in this encounter Visit Diagnoses Not on filedocumented in this encounter Care Teams Cardiothoracic Surgeon Relationship Specialty Start Date End Date Brenda Canchola MD [address] [place] [address] [place] [address] PCP - General 08/03/10 documented as of this encounter
--- OUTSIDE RECORDS SUMMARY | 2024-08-20 15:47 | XMS_ITS | Encounter Summary ---
Author Organization [facility] Address [address] [place] [address] Care Team Providers Care Pbx Operator Name Role Phone Brenda Canchola MD Primary Care Provider [phone] Encounter Details Date Type Department Care Team (Late st Contact Info) Description 08/17/2020 Lab Requisition [facility] Pathology & Laboratory Medicine - [facility] [address] [place], [place] [phone] Outr Resulting Lab, Provider Social History Tobacco [...] AL ORDERABLES Final Result Performing Organization Address City/[facility] Co de Phone Number [facility] [address] [place] [address] * COVID-19 TESTING (08/17/2020 12:25 EST) COVID-19 rt-PCR Result Negative Negative 08/18/2020 15:45 EST [facility] Comment:Negative results do not preclude 2019-nCoV infection and should not be used as the sole basis for treatment or other patient management decisions. Negative results must be combined with clinical observations, patient history, and epidemiological information. Performing Lab [facility] Lab 08/18/2020 15:45 EST [facility] Swab 08/17/2020 12:2 5 EST 08/17/2020 15:56 EST us Provider Outr Resulting Lab MICROBIOLOGY - GENER AL ORDERABLES Final Result Performing Organization Address [facility] Co de Phone Number [facility] [address] [place] [address] documented in this encounter Visit Diagnoses Not on filedocumented in this encounter Care Teams Pbx Operator Relationship Specialty Start Date End Date Brenda Canchola MD [address] [place] [address] [place] [address] PCP - General 08/03/10 documented as of this encounter
--- OUTSIDE RECORDS SUMMARY | 2024-08-20 15:47 | XMS_ITS | Encounter Summary ---
Author Organization [facility] Address [address] [place] [address] Care Team Providers Care Cream Dumper Name Role Phone Brenda Canchola MD Primary Care Provider [phone] Encounter Details Date Type Department Care Team (Late st Contact Info) Description 03/10/2021 Lab Requisition [facility] Pathology & Laboratory Medicine - [facility] [address] [place] [address] Torito Coon MD [address] [place] [address] [place] [address] Encounter for other general examination [...] explore management options, if applicable. 03/17/2021 12:34 [facility] Final Diagnosis A. STOMACH, ANTRUM, BIOPSY: - No significant pathologic abnormality B. GASTROESOPHAGEAL JUNCTION, BIOPSY: - No significant pathologic abnormality C. COLON, ASCENDING, BIOPSY: - Tubular adenoma D. COLON, DESCENDING, BIOPSY: - No significant pathologic abnormality E. COLON, SIGMOID COLON BIOPSY: - Mildly hyperplastic benign colonic mucosa 03/17/2021 12:34 [facility] Attestation By the signature below, the attending physician certifies that they have 1) personally conducted a gross and/or microscopic examination of the described specimen(s), and/or personally interpreted the results of laboratory testing of the described specimen(s), and 2) personally rendered or confirmed the above diagnosis. 03/17/2021 12:34 [facility] at 1234 Clinical History Constipation, bloating 03/17/2021 12:34 [facility] Gross Description A. Received in [...] RAEGAN ACOSTA(ASC) 03/10/2021 15:50 03/17/2021 12:34 EDT [facility] Performing Lab [facility] 12:34 EDT [facility] Scanned Images 03/17/2021 12:34 EDT [facility] Tissue ENTIRE SIGMOID COLON [...] Coon MD PATHOLOGY ORDERABLES Fin al Result [facility] [address] [place] [address] documented in this encounter Visit Diagnoses Diagnosis Encounter for other general examination documented in this encounter Care Teams Cream Dumper Relationship Specialty Start Date End Date Brenda Canchola MD [address] [place] [address] [place] [address] PCP - General 08/03/10 documented as of this encounter
--- OUTSIDE RECORDS SUMMARY | 2024-08-20 15:47 | XMS_ITS | Encounter Summary ---
Author Organization [facility] Address [address] [place] [address] Care Team Providers Care Ice Cream Truck Driver Name Role Phone Brenda Canchola MD Primary Care Provider [phone] Encounter Details Date Type Department Care Team (Late st Contact Info) Description 02/06/2019 Historical Results Only [facility] - [facility] Lab - Main [address] [address] Nathan Michael MD [address] [place] [id number] Social History Tobacco Use Types Packs/Day [...] 70 - 100 mg/dL 02/06/2019 12:09 EDT [facility] 02/06/2019 12:0 7 EDT 02/06/2019 12:09 EDT us Nathan Michael MD POINT OF CARE TEST ORDERABLES Fi nal Result Performing Organization Address [facility] Co de Phone Number [facility] * (ABNORMAL) POCT GLUCOSE (02/06/2019 7:50 EDT) Glucose, POC 137(H) 70 - 100 mg/dL 02/06/2019 7:52 EDT [facility] 02/06/2019 7:50 EDT 02/06/2019 7:52 EDT us Nathan Michael MD POINT OF CARE TEST ORDERABLES Fi nal Result Performing Organization Address [facility] Co de Phone Number [facility] * (ABNORMAL) ALT (02/06/2019 6:45 EDT) SGPT/ALT - [facility] 121(H) 9 - 52 U/L 02/06/2019 8:10 EDT [facility] 02/06/2019 6:45 EDT 02/06/2019 6:49 EDT Narrative [facility] - 02/06/2019 8:10 EDT AOT: 02/06/19 0743: AST/ALT us Ruby Frederick MD CHEMISTRY & BLOOD GAS ORDERABLES Final Result Performing Organization Address City/[facility]/ZIP Co de Phone Number [facility] * (ABNORMAL) AST (02/06/2019 6:45 EDT) [facility] SGOT/AST - [facility] 63(H) 14 - 36 U/L 02/06/2019 8:10 EDT [facility] 02/06/2019 6:45 EDT 02/06/2019 6:49 EDT [facility] - 02/06/2019 8:10 EDT AOT: 02/06/19 0743: AST/ALT Ruby Frederick MD CHEMISTRY & BLOOD GAS ORDERABLES Final Result [facility] * MAGNESIUM (02/06/2019 6:45 EDT) [facility] Magnesium 2.20 1.7 - 2.8 mg/dL 02/06/2019 7:24 EDT [facility] 02/06/2019 6:45 EDT 02/06/2019 6:49 EDT [facility] - 02/06/2019 8:10 EDT AOT: 02/06/19 0743: AST/ALT Ruby Frederick MD CHEMISTRY & BLOOD GAS ORDERABLES Final Result [facility] * (ABNORMAL) BASIC METABOLIC PANEL (BMP) (02/06/2019 6:45 EDT) Pathologist [facility] 14 10 - 26 mg/dL 02/06/2019 7:24 EDT [facility] CALCIUM - [facility] 9.5 8.5 - 10.5 mg/dL 02/06/2019 7:24 EDT [facility] Chloride 98 96 - 110 mmol/L 02/06/2019 7:24 EDT [facility] CO2 Total 28 22 - 32 mEq/L 02/06/2019 7:24 EDT [facility] CREATININE 0.68 0.52 - 1.04 mg/dL 02/06/2019 7:24 [facility] eGFR >60 02/06/2019 7:24 T [facility] Comment: Chronic renal impairment is defined as GFR <60 Multiply result by 1.210 for patients. eGFR calculated using the IDMS-traceable MDRD Study Equation. ??(effective 05/12/2014) Anion Gap 7 0 - 18 02/06/2019 7:24 [facility] GLUCOSE - [facility] 137(H) 70 - 100 mg/dL 02/06/2019 7:24 [facility] Potassium 4.3 3.5 - 5.0 mEq/L 02/06/2019 7:24 [facility] Sodium 133(L) 136 - 145 mEq/L 02/06/2019 7:24 [facility] 02/06/2019 6:45 EDT 02/06/2019 6:49 EDT Narrative [facility] - 02/06/2019 8:10 EDT AOT: 02/06/19 0743: AST/ALT us Ruby Frederick MD CHEMISTRY & BLOOD GAS ORDERABLES Final Result [facility] * (ABNORMAL) COMPLETE BLOOD COUNT WITH DIFFERENTIAL (AUTO) (02/06/2019 6:45 EDT) ABSOLUTE NEUTROPHIL COUN - CV 7.7 2.2 - 8.85 10e3/uL 02/06/2019 7:14 [facility] BASO # - [facility] 0.02 0.01 - 0.11 10e/uL 02/06/2019 7:14 [facility] BASO % - [facility] 0 0 - 2 % 02/06/2019 7:14 [facility] EOS # - [facility] 0.10 0.03 - 0.61 10e3/ul 02/06/2019 7:14 [facility] EOS % - [facility] 1 0 - 5 % 02/06/2019 7:14 [facility] GRAN % - [facility] 71.6 40 - 80 % 02/06/2019 7:14 [facility] HEMATOCRIT - [facility] 40.4 34.9 - 44.4 % 02/06/2019 7:14 [facility] HEMOGLOBIN - [facility] 13.4 11.6 - 15.2 g/dl 02/06/2019 7:14 [facility] IG# - [facility] 0.06 0 - 0.7 10e3/uL 02/06/2019 7:14 [facility] IG% - [facility] 0.6 0 - 0.9 % 02/06/2019 7:14 [facility] LYMPH # - [facility] 2.0 1.09 - 3.3 10e3/ul 02/06/2019 7:14 [facility] LYMPH% - [facility] 18.3(L) 20 - 40 % 02/06/2019 7:14 [facility] MEAN CORPUSCULAR HGB - [facility] 29.1 26.7 - 33.3 pg 02/06/2019 7:14 [facility] MEAN CORPUSCULAR HGB CONC - [facility] 33.2 32.1 - 35.9 g/dL 02/06/2019 7:14 [facility] MEAN CELL VOLUME - [facility] 87.6 81 - 98 fl 02/06/2019 7:14 [facility] MONO # - [facility] 0.9(H) 0.1 - 0.8 10e3/uL 02/06/2019 7:14 [facility] MONO% - [facility] 8.4 0 - 12 % 02/06/2019 7:14 [facility] PLATELET COUNT 346 141 - 377 10e3/ul 02/06/2019 7:14 [facility] RED BLOOD COUNT - [facility] 4.61 3.86 - 5.04 10e3/ul 02/06/2019 7:14 [facility] RED CELL DISTRI WIDTH - [facility] 14.7 <14.7 % 02/06/2019 7:14 [facility] WHITE BLOOD COUNT - [facility] 10.8 4.0 - 12.4 10e3/ul 02/06/2019 7:14 [facility] 02/06/2019 6:45 EDT 02/06/2019 6:50 EDT Ruby Frederick MD HEMATOLOGY & PF4 ORDERABLES Madelin mobley Result [facility] documented in this encounter Visit Diagnoses Not on filedocumented in this encounter Care Teams Ice Cream Truck Driver Relationship Specialty Start Date End Date Brenda Canchola MD [address] [place] [address] [place] [address] PCP - General 08/03/10 documented as of this encounter
--- OUTSIDE RECORDS SUMMARY | 2024-08-20 15:47 | XMS_ITS | Encounter Summary ---
Author Organization [facility] Address [address] [place] [address] Care Team Providers Care Drywall Carrier Name Role Phone Brenda Canchola MD Primary Care Provider [phone] Encounter Details Date Type Department Care Team (Late st Contact Info) Description 02/05/2019 Historical Results Only [facility] Radiology Results [address] [place] [address] Unknown, Provider, Social History Tobacco Use Types [...] MD ? CC: ? Transcribed Date/Time: 02/05/2019 (1568) ? Freelance Copywriter: ? Printed Date/Time: 03/27/2019 (1818) ? PAGE [...] Doris Posadas MD CC: Transcribed Date/Time: 02/05/2019 (0531) Freelance Copywriter: Printed Date/Time: 03/27/2019 (0280) PAGE 2 Signed Report Ruby Frederick MD IMG CT ORDERABLES Final Result * (ABNORMAL) POCT GLUCOSE (02/05/2019 19:27 EDT) Glucose, POC 121(H) 70 - 100 mg/dL 02/05/2019 19:31 EDT [facility] 02/05/2019 19:2 7 EDT 02/05/2019 19:31 EDT Nathan Michael MD POINT OF CARE TEST ORDERABLES Fi nal Result [facility] * US EXTREMITY (02/05/2019 15:12 [...] CC: ? Transcribed Date/Time: 02/05/2019 (1515) ? Freelance Copywriter: ? Printed Date/Time: 03/27/2019 (1817) ? PAGE 1 ? Signed Report ? Procedure Note Tay Velazquez MD - 05/14/2019 EXAM: ULTRASOUND/DOPPLER VEIN LOWER EXT B EX. D/ (8475) CLINICAL INFORMATION: SBLE - Swelling bilat. lower [...] Velazquez MD CC: Transcribed Date/Time: 02/05/2019 (1515) Freelance Copywriter: Printed Date/Time: 03/27/2019 (1817) PAGE 1 Signed Report Ruby Frederick MD [facility] ORDERABLES Final Result * TROPONIN I (02/05/2019 13:30 EDT) Troponin I (ng/mL) <0.034 0.000 - 0.034 ng/mL 02/05/2019 14:06 EDT [facility] Comment: Interpretation comments: ??Cutoff for [...] GAS ORDERABLES Final Result Performing Organization Address [facility] Phone Number [facility] * (ABNORMAL) POCT GLUCOSE (02/05/2019 11:54 EDT) Glucose, POC 223(H) 70 - 100 mg/dL 02/05/2019 11:57 EDT [facility] 02/05/2019 11:5 4 EDT 02/05/2019 11:57 EDT Nathan Michael MD POINT OF CARE TEST ORDERABLES Fi nal Result Performing Organization Address [facility] [[email or web address]] de Phone Number [facility] * (ABNORMAL) POCT GLUCOSE (02/05/2019 8:02 EDT) Glucose, POC 138(H) 70 - 100 mg/dL 02/05/2019 8:03 EDT [facility] 02/05/2019 8:02 EDT 02/05/2019 8:03 EDT Nathan Michael MD POINT OF CARE TEST ORDERABLES Fi nal Result Performing Organization Address [facility]/ZIP Co de Phone Number [facility] * TRANSTHORACIC ECHO (TTE) COMPLETE (02/05/2019 7:06 EDT) Anatomical Region Laterality Modality Ultrasound 02/05/2019 7:06 EDT Narrative 02/05/2019 7:06 EDT ?[facility] ?[address] [place], [place] [address] ? [id number] ? E C H O C A R D I O G R A M ? R E P O R T NAME: JOSSELINEALIZE ? : 58 ? LOCATION: 2S ? TELEPHONE: [phone] ?MR#: [id number] ? *[facility]* *[facility]* [address] [place] [address] Date of study: 02/05/2019 Transthoracic Echocardiography M-mode, [...] AM. Test stop time: ??07:56 AM. PERFORMING ??[place] ORDERING ?Nathan Michael REFERRING ?? Nathan Michael *PROCEDURE DATA* Procedure information: ??The patient was identified by two identifiers. This study was interpreted by [facility]. Pertinent images and digital data are archived for permanent storage and are available for subsequent review. No prior study was available for comparison. ??Study status: Routine. Transthoracic echocardiography. ??M-mode, complete 2D, complete ?[facility] ?[address] [place], [place] [address] ? [id number] ? E C H O C A R D I O G R A M ? R E P O R T NAME: ALIZE MANJARREZ ? : 58 ? LOCATION: 2S ? TELEPHONE: [phone] ?MR#: [id number] ? spectral Doppler, and color Doppler. A Transthoracic Echocardiogram was performed. Scanning was performed from the parasternal, apical, subcostal, and suprasternal notch acoustic windows. Images were obtained using a [facility] IE33 2 cardiac ultrasound machine. Image quality [...] cava: The vessel was normal in size. ?[facility] ?[address] [place], [place] [address] ? [id number] ? E C H O C A R D I O G R A M ? R E P O R T NAME: ALIZE MANJARREZ ? : 58 ? LOCATION: 2S ? TELEPHONE: [phone] ?MR#: [id number] ? Measurements Left ventricle ?Value ?Reference LV [...] S 2 ?? LA/aortic root ratio ?1.25 ?[facility] ?[address] [place], [place] [address] ? [id number] ? E C H O C A R D I O G R A M ? R E P O R T NAME: ALIZE MANJARREZ ? : [birth year] ? LOCATION: 2S ? TELEPHONE: [phone] ?MR#: [id number] ? Mitral valve ?Value ?Reference Mitral E/A [...] Procedure Note Rasta Davis MD - 04/28/2019 [facility] [address] [place], [place] [address] [id number] E C H O C A R D I O G R A M R E P O R T NAME: ALIZE MANJARREZ : 58LOCATION: 2S TELEPHONE: [phone] MR#: [id number] [id number] *[facility]* *[facility]* [address] [place] [address] Date of study: 02/05/2019 Transthoracic Echocardiography M-mode, [...] AM. Test stop time: 07:56 AM. PERFORMING [place] ORDERING Nathan Michael REFERRING Nathan Michael *PROCEDURE DATA* Procedure information: The patient was identified by two identifiers. This study was interpreted by [facility]. Pertinent images and digital data are archived for permanent storage and are available for subsequent review. No prior study was available for comparison. Study status: Routine. Transthoracic echocardiography. M-mode, complete 2D, complete [facility] [address] [place] [id number] [id number] E C H O C A R D I O G R A M R E P O R T NAME: ALIZE MANJARREZ : 58LOCATION: 2S TELEPHONE: [phone] MR#: [id number] spectral Doppler, and color Doppler. A Transthoracic Echocardiogram was performed. Scanning was performed from the parasternal, apical, subcostal, and suprasternal notch acoustic windows. Images were obtained using a [facility] IE33 2 cardiac ultrasound machine. Image quality [...] cava: The vessel was normal in size. [facility] [address] [place], [place] [address] X4280 E C H O C A R D I O G R A M R E P O R T NAME: ALIZE MANJARREZ : 58LOCATION: 2S TELEPHONE: [phone] MR#: [id number] [facility]#:[id number] Measurements Left ventricle Value Reference LV ID, [...] ml/m S 2 LA/aortic root ratio 1.25 [facility] [address] [place], [place] [address] X4280 E C H O C A R D I O G R A M R E P O R T NAME: ALIZE MANJARREZ MONIE: 58LOCATION: 2S TELEPHONE: [phone] MR#: [id number] [facility]#:[id number] Mitral valve Value Reference Mitral E/A ratio, [...] Result * MAGNESIUM (02/05/2019 6:45 EDT) Pathologist [facility] Magnesium 2.30 1.7 - 2.8 mg/dL 02/05/2019 7:46 EDT [facility] 02/05/2019 6:45 EDT 02/05/2019 6:52 EDT Nathan Michael MD CHEMISTRY & BLOOD GAS ORDERABLES Final Result [facility] * (ABNORMAL) LIPID PROFILE (INCLUDES CHOLESTEROL, TRIGLYCERIDES, HDL, LDL) (02/05/2019 6:45 EDT) Triglyceride 181 <150 mg/dL 02/05/2019 7:46 EDT [facility] Comment: Adult: Normal: ?<150 mg/dl ? Borderline High: 150-199 mg/dl ? High: ?200-499 mg/dl ? Very High: >cf=524 Cholesterol 129 <200 mg/dL 02/05/2019 7:46 [facility] Comment: Acceptable: ??<200 Borderline: ??200-239 High: ?> or = 240 Chol/HDL Ratio 4.1 0 - 4.5 02/05/2019 7:46 T [facility] Comment: DESIRABLE RATIO IS LESS THAN 4.1 PATIENTS ARE CONSIDERED AT RISK: WOMEN RATIO >5 MEN RATIO >6 FASTING? - [facility] Unknown 9 7:54 [facility] HDL 31(L) 40 - 60 mg/dL 02/05/2019 7:46 [facility] Comment: ?? Reference Range Low: ? < 40 ??mg/dL Normal: ??40-60 mg/dL High: ?>= 60 mg/dL LDL CHOLESTEROL - [facility] 62 60 - 100 mg/dL 02/05/2019 7:46 [facility] Non HDL Cholesterol 98 mg/dl 02/05/2019 7:46 [facility] Comment: Desirable: ?Less than 130 Borderline High: ??130-159 High: ? 160-189 Very High: ?Greater than or equal to 190 02/05/2019 6:45 EDT 02/05/2019 6:52 EDT us Nathan Michael MD CHEMISTRY & BLOOD GAS ORDERABLES Final Result [facility] * (ABNORMAL) COMPREHENSIVE METABOLIC PANEL (CMP) (02/05/2019 6:45 EDT) Albumin % 3.0(L) 3.4 - 4.9 g/dL 02/05/2019 7:46 EDT [facility] ALKALINE PHOSPHATASE - [facility] 53 38 - 126 U/L 02/05/2019 7:46 [facility] BILIRUBIN TOTAL 0.9 0.2 - 1.3 mg/dL 02/05/2019 7:46 [facility] BUN - [facility] 14 10 - 26 mg/dL 02/05/2019 7:46 [facility] CALCIUM - [facility] 8.9 8.5 - 10.5 mg/dL 02/05/2019 7:46 [facility] Chloride 101 96 - 110 mmol/L 02/05/2019 7:46 [facility] CO2 Total 29 22 - 32 mEq/L 02/05/2019 7:46 [facility] CREATININE 0.65 0.52 - 1.04 mg/dL 02/05/2019 7:46 [facility] eGFR >60 02/05/2019 7:46 [facility] Comment: Chronic renal impairment is defined as GFR <60 Multiply result by 1.210 for patients. eGFR calculated using the IDMS-traceable MDRD Study Equation. ??(effective 05/12/2014) Anion Gap 5 0 - 18 02/05/2019 7:46 [facility] GLUCOSE - [facility] 136(H) 70 - 100 mg/dL 02/05/2019 7:46 [facility] Potassium 4.3 3.5 - 5.0 mEq/L 02/05/2019 7:46 [facility] Sodium 135(L) 136 - 145 mEq/L 02/05/2019 7:46 [facility] TOTAL PROTEIN - [facility] 5.3(L) 6.2 - 8.2 gm/dL 02/05/2019 7:46 [facility] SGOT/AST - [facility] 85(H) 14 - 36 U/L 02/05/2019 7:46 [facility] SGPT/ALT - [facility] 118(H) 9 - 52 U/L 9 7:46 [facility] 02/05/2019 6:45 EDT 02/05/2019 6:52 EDT Nathan Michael MD CHEMISTRY & BLOOD GAS ORDERABLES Final Result Performing Organization Address [facility] Co de Phone Number [facility] * (ABNORMAL) TROPONIN I (02/05/2019 6:45 EDT) [facility] Troponin I (ng/mL) 0.038(HH) 0.000 - 0.034 ng/mL 02/05/2019 8:03 EDT [facility] Comment: Result called to EBONY [...] GAS ORDERABLES Final Result Performing Organization Address [facility] [[email or web address]] de Phone Number [facility] * HEPATITIS C AB W REFLEX TO HCV RNA BY PCR (02/05/2019 6:45 EDT) [facility] HEPATITIS C AB W/REFLEX - [facility] Negative 02/05/2019 8:14 EDT [facility] Comment:Expected Values: Neg ative. 02/05/2019 6:45 EDT 02/05/2019 6:52 EDT Nathan Michael MD CHEMISTRY & BLOOD GAS ORDERABLES Final Result Performing Organization Address [facility] [[email or web address]] de Phone Number [facility] * HEPATITIS B SURFACE ANTIGEN (02/05/2019 6:45 EDT) [facility] Hep B Surface Ag Negative 02/05/2019 8:14 EDT [facility] Comment: Expected Values: ??Negative. The results of this assay can be falsely lowered due to the consumption of Biotin. 02/05/2019 6:45 EDT 02/05/2019 6:52 EDT us Nathan Michael MD CHEMISTRY & BLOOD GAS ORDERABLES Final Result [facility] * COMPLETE BLOOD COUNT WITH DIFFERENTIAL (AUTO) (02/05/2019 6:45 EDT) ABSOLUTE NEUTROPHIL COUN - [facility] 6.5 2.2 - 8.85 10e3/uL 02/05/2019 7:21 [facility] BASO # - [facility] 0.01 0.01 - 0.11 10e/uL 02/05/2019 7:21 [facility] BASO % - [facility] 0 0 - 2 % 02/05/2019 7:21 [facility] EOS # - [facility] 0.14 0.03 - 0.61 10e3/ul 02/05/2019 7:21 [facility] EOS % - [facility] 1 0 - 5 % 02/05/2019 7:21 [facility] GRAN % - [facility] 63.7 40 - 80 % 02/05/2019 7:21 [facility] HEMATOCRIT - [facility] 38.1 34.9 - 44.4 % 02/05/2019 7:21 [facility] HEMOGLOBIN - [facility] 12.9 11.6 - 15.2 g/dl 02/05/2019 7:21 [facility] IG# - [facility] 0.08 0 - 0.7 10e3/uL 02/05/2019 7:21 [facility] IG% - [facility] 0.8 0 - 0.9 % 02/05/2019 7:21 [facility] LYMPH # - [facility] 2.8 1.09 - 3.3 10e3/ul 02/05/2019 7:21 [facility] LYMPH% - [facility] 26.9 20 - 40 % 02/05/2019 7:21 [facility] MEAN CORPUSCULAR HGB - [facility] 29.5 26.7 - 33.3 pg 02/05/2019 7:21 [facility] MEAN CORPUSCULAR HGB CONC - [facility] 33.9 32.1 - 35.9 g/dL 02/05/2019 7:21 [facility] MEAN CELL VOLUME - [facility] 87.2 81 - 98 fl 02/05/2019 7:21 [facility] MONO # - [facility] 0.7 0.1 - 0.8 10e3/uL 02/05/2019 7:21 [facility] MONO% - [facility] 7.1 0 - 12 % 02/05/2019 7:21 [facility] PLATELET COUNT 314 141 - 377 10e3/ul 02/05/2019 7:21 [facility] RED BLOOD COUNT - [facility] 4.37 3.86 - 5.04 10e3/ul 02/05/2019 7:21 [facility] RED CELL DISTRI WIDTH - [facility] 14.4 <14.7 % 02/05/2019 7:21 [facility] WHITE BLOOD COUNT - [facility] 10.3 4.0 - 12.4 e3/ul 02/05/2019 7:21 [facility] 02/05/2019 6:45 EDT 02/05/2019 6:52 EDT us Nathan Michael MD HEMATOLOGY & PF4 ORDERABLES Madelin l Result [facility] * (ABNORMAL) POCT GLUCOSE (02/05/2019 0:02 EDT) [facility] Glucose, POC 121(H) 70 - 100 mg/dL 02/05/2019 0:43 EDT [facility] 02/05/2019 0:02 EDT 02/05/2019 0:43 EDT us Nathan Michael MD POINT OF CARE TEST ORDERABLES Fi nal Result [facility] documented in this encounter Visit Diagnoses Not on filedocumented in this encounter Care Teams Drywall Carrier Relationship Specialty Start Date End Date Brenda Canchola MD [address] [place] [address] [place] [address] PCP - General 08/03/10 documented as of this encounter
--- OUTSIDE RECORDS SUMMARY | 2024-08-20 15:47 | XMS_ITS | Encounter Summary ---
Author Organization [facility] Address [address] [place] [address] Care Team Providers Care Engineering Specialist Technician Name Role Phone Brenda Canchola MD Primary Care Provider [phone] Encounter Details Date Type Department Care Team (Late st Contact Info) Description 02/05/2023 Lab Requisition [facility] Pathology & Laboratory Medicine - [address] [id number] Outr Resulting Lab, Provider Social History Tobacco [...] Lyme Ab Negative Negative 02/06/2023 10:47 EDT [facility] Blood VENOUS BLOOD / Unknown 02/04/2023 21:15 EDT 02/05/2023 15:40 EDT us Provider Outr Resulting Lab IMMUNOLOGY AND SEROL OGY ORDERABLES Final Result [facility] [address] [place] [address] documented in this encounter Visit Diagnoses Not on filedocumented in this encounter Care Teams Engineering Specialist Technician Relationship Specialty Start Date End Date Brenda Canchola MD [address] [place] [address] [place] [address] PCP - General 08/03/10 documented as of this encounter
--- OUTSIDE RECORDS SUMMARY | 2024-08-20 15:47 | XMS_ITS | Encounter Summary ---
Author Organization [facility] Address [address] [place] [address] Care Team Providers Care Clarifier Operator Helper Name Role Phone Brenda Canchola MD Primary Care Provider [phone] Encounter Details Date Type Department Care Team (Latest Contact Info) Description 02/04/2019 10:07 EDT - 02/04/2019 23:[address] [facility] [address] [place] [address] Unknown, Provider, MD Discharge Disposition: Home or [...] on filedocumented in this encounter Care Teams Clarifier Operator Helper Relationship Specialty Start Date End Date Brenda Canchola MD [facility] [place] [address] PCP - General 08/03/10 documented as of this encounter
--- OUTSIDE RECORDS SUMMARY | 2024-08-20 15:47 | XMS_ITS | Clinical Summary ---
Author Organization [facility] Address [address] [place] [address] Care Team Providers Care Statue Maker Name Role Phone Brenda Canchola MD Primary Care Provider [phone] Allergies Active Allergy Reactions Criticality Noted Date [...] History Medical History Date Comments Heart attack ([facility]) 2009 cath with 4 stents Diabetes mellitus ([facility]) bor derline Asthma Hypertension Depression Anxiety Family [...] EDT) HEPATITIS C AB W/REFLEX - [facility] Negative 02/05/2019 8:14 EDT [facility] Comment:Expected Values: Neg ative. 02/05/2019 6:45 EDT 02/05/2019 6:52 EDT us Nathan Micahel MD CHEMISTRY & BLOOD GAS ORDERABLES Final Result [facility] from Last 3 Months or Most Recently Relevant to Health Maintenance Insurance [place]ICAID [place] Care Teams Statue Maker Relationship Specialty Start Date End Date Brenda Canchola MD [address] [place] [address] [place] [address] PCP - General 08/03/10
--- OUTSIDE RECORDS SUMMARY | 2024-08-20 15:47 | XMS_ITS | Referral Summary ---
Author Organization [facility] Address [address] [place] [address] Care Team Providers Care Rail Technician Name Role Phone Brenda Canchola MD Primary Care Provider [phone] Allergies Active Allergy Reactions Criticality Noted Date [...] 6:45 EDT) HEPATITIS C AB W/REFLEX - [facility] Negative 02/05/2019 8:[address] [facility] Comment:Expected Values: Neg ative. 02/05/2019 6:45 EDT 02/05/2019 6:52 EDT Nathan Michael MD CHEMISTRY & BLOOD GAS ORDERABLES Final Result [facility] from Last 3 Months or Most Recently Relevant to Health Maintenance Insurance [place]ICAID [place] Care Teams Rail Technician Relationship Specialty Start Date End Date Brenda Canchola MD [address] [place] [address] [place] [address] PCP - General 08/03/10
--- OUTSIDE RECORDS SUMMARY | 2024-08-20 15:47 | XMS_ITS | Encounter Summary ---
Author Organization [facility] Address [address] [place] [address] Care Team Providers Care Senior Benefits Specialist Name Role Phone Brenda Canchola MD Primary Care Provider [phone] Encounter Details Date Type Department Care Team (Late st Contact Info) Description 10/14/2021 Lab Requisition [facility] Pathology & Laboratory Medicine - [facility] [address] [place], [place] [address] Outr Resulting Lab, Provider Social History Tobacco [...] AL ORDERABLES Final Result Performing Organization Address City/[facility]/ZIP Co de Phone Number [facility] [address] [place] [address] * COVID-19 TESTING (10/13/2021 18:40 EDT) COVID-19 rt-PCR Result Negative Negative 10/15/2021 11:43 EDT [facility] Comment: This test has [...] performed using the flaquito SARS-CoV-2 assay ([employer] on the Flaquito 6800 System Performing Lab Flaquito 6800 [facility] 10/15/2021 11:43 EDT [facility] Swab 10/13/2021 18:4 0 EDT 10/14/2021 17:01 EDT us Provider Outr Resulting Lab MICROBIOLOGY - GENER AL ORDERABLES Final Result Performing Organization Address [facility] Co de Phone Number [facility] [address] [place] [address] documented in this encounter Visit Diagnoses Not on filedocumented in this encounter Care Teams Senior Benefits Specialist Relationship Specialty Start Date End Date Brenda Canchola MD [address] [place] [address] [place] [address] PCP - General 08/03/10 documented as of this encounter
--- OUTSIDE RECORDS SUMMARY | 2024-08-20 15:48 | XMS_ITS | Encounter Summary ---
Author Organization [facility] Address [address] [place] [address] Care Team Providers Care Blasting Contract Man Name Role Phone Unavailable Primary Care Provider Unavailabl e Encounter Details Date Type Department Care Team (Late st Contact Info) Description 12/01/2005 Results Only [facility] [place] [facility] [address] [place] [address] Santos Shay MD [address] [place] [address] [address] [place] [address] Social History Tobacco Use Types Packs/Day [...] ? ALIZE MANJARREZ ? Accession #: ? [id number] ? : ? 1960 (Age: 45) ??F [...] entirely submitted as (A1) and (A2). ??(Gwyn Oliveros/[facility] ?? End of Report [facility] 12/01/2005 12/01/2005 15: 25 EDT us Santos Shay MD PATHOLOGY ORDERABLES Final Resu lt [facility] [address] [place] [address] documented in this encounter Visit Diagnoses Not on filedocumented in this encounter
--- OUTSIDE RECORDS SUMMARY | 2024-08-20 15:48 | XMS_ITS | Encounter Summary ---
Author Organization [facility] Address [address] [place] [address] Care Team Providers Care Parts Sales Associate Name Role Phone Brenda Canchola MD Primary Care Provider [phone] Encounter Details Date Type Department Care Team (Late st Contact Info) Description 01/02/2018 Results Only [facility] [phone] Nadir Hernandez, OTTER TRAWLER [place] [address] [place] [address] Social History Tobacco Use Types Packs/Day Years [...] ? ALIZE MANJARREZ ? Accession #: ? [id number] ? : ? 1960 (Age: 57) ??F ?Collect Date: ? 01/02/2018 ? Location: ? [facility] ? Receive Date: ? 01/04/2018 ? Provider: NADIR HERNANDEZ FLOWERS SALESPERSON- Copy to: ? Final Report SPECIMEN ADEQUACY [...] types 16,18,31,33,35, 39,45,51,52,56,58, 59,66, and 68 by salad bar clerk mediated amplification. Comments Document reviewed and electronically signed by: ? System Interface ? Report date: 01/23/2018 By the signature above, the attending physician certifies that he/she has personally conducted a gross and/or microscopic examination of the described specimens and rendered or confirmed the above diagnosis. End of Report [facility] 01/02/2018 01/04/2018 us Nadir Hernandez OTTER TRAWL[employer] [place] PATHOLOGY ORDERABLES Final Res ult [facility] [address] [place] [address] documented in this encounter Visit Diagnoses Not on filedocumented in this encounter Care Teams Parts Sales Associate Relationship Specialty Start Date End Date Brenda Canchola MD [address] [place] [address] [place] [address] PCP - General 08/03/10 documented as of this encounter
--- OUTSIDE RECORDS SUMMARY | 2024-08-20 15:48 | XMS_ITS | Encounter Summary ---
Author Organization [facility] Address [address] [place] [address] Care Team Providers Care Slide Attendant Name Role Phone Brenda Renee MD Primary Care Provider [phone] Encounter Details Date Type Department Care Team (Late st Contact Info) Description 12/18/2012 Results Only [facility] Laboratory Services - [facility] ([facility]) [address] [place], [place] [phone] Brenda Renee MD [facility] [address] Social History Tobacco Use Types [...] ? ALIZE MANJARREZ ? Accession #: ? [id number] ? : ? 1960 (Age: 52) ??F [...] and electronically signed by: ? Brenda Chang, [facility](ASCP) ? Report ??Date: 12/26/2012 13:52 HPV with Pap Test ? Date Ordered: ? 12/25/2012 ? Status: ?? Signed Out ?Date Complete: ? 12/28/2012 ? By: ??System Interface ? Date Reported: ? 12/28/2012 ? Interpretation RESULT: Negative for HPV. No E6 or E7 mRNA is detected from HPV types 16,18,31,33,35, 39,45,51,52,56,58, 59,66, and 68 by coater operator insulation board mediated amplification. Comments Document reviewed and electronically [...] Final Re sult [facility] [address] [place] [address] documented in this encounter Visit Diagnoses Not on filedocumented in this encounter Care Teams Slide Attendant Relationship Specialty Start Date End Date Brenda Renee MD [address] [place] [address] [place] [address] PCP - General 08/03/10 documented as of this encounter
--- OUTSIDE RECORDS SUMMARY | 2024-08-20 15:48 | XMS_ITS | Encounter Summary ---
Author Organization [facility] Address [address] [place] [address] Care Team Providers Care Durable Medical Equipment Repairer Name Role Phone Unavailable Primary Care Provider Unavailabl e Encounter Details Date Type Department Care Team (Late st Contact Info) Description 08/15/2008 Before PRISM Converted Visit (Maple) [facility] - Maple conversion [address] [place] [address] Brenda Canchola MD [facility] [place] [address] Social History Tobacco Use Types [...] TA Final Result [facility] [address] [place] [address] * CYTOPATHOLOGY (08/15/2008 0:00 EST) Pathology Report: CYTOPATHOLOGY REPORT ? Reports generated via electronic interface contain original data; ? however they are lacking the format of the original report. ? Caution should be taken when reading/interpreti ng unformatted reports. ? Name: ? ALIZE MANJARREZ ? Accession #: ? [id number] ? : ? 1960 (Age: 47) ??F [...] ? (LSIL). ? EDUCATIONAL NOTES/RECOMMENDATI ONS ? [facility] recommends following the 2006 Consensus Guidelines for the Management of Women with Abnormal Cervical Cancer Screening Tests (JLGTD, ? 2007;11(4):201-222 ). ??Consensus guidelines are available online at ? www.ASCCP.org. ? Document reviewed and electronically signed by: ? GLADWYN ANGELAMAN MD [facility] ? Report Date: ??08/26/2008 12:02 ? End of Report ? [facility] 08/15/2008 08/19/2008 us Brenda Canchola MD PATHOLOGY ORDERABLES Final Re sult [facility] [address] [place] [address] documented in this encounter Visit Diagnoses Not on filedocumented in this encounter
--- OUTSIDE RECORDS SUMMARY | 2024-08-20 15:48 | XMS_ITS | Encounter Summary ---
Author Organization [facility] Address [address] [place] [address] Care Team Providers Care Sawsmith Name Role Phone Unavailable Primary Care Provider Unavailabl e Encounter Details Date Type Department Care Team (Late st Contact Info) Description 09/15/2008 Before PRISM Converted Visit (Maple) [facility] [address] [place] [address] Puja Noland MD [address] [place] [address] Social History Tobacco Use Types [...] ? ALIZE MANJARREZ ? Accession #: ? [id number] ? : ? 1960 (Age: 47) ??F [...] low grade squamous intraepithelial lesion is favored. ??Hander In sections ?? were reviewed at the intradepartmental [...] Final Resul t [facility] [address] [place] [address] documented in this encounter Visit Diagnoses Not on filedocumented in this encounter
--- OUTSIDE RECORDS SUMMARY | 2024-08-20 15:48 | XMS_ITS | Encounter Summary ---
Author Organization [facility] Address [address] [place] [address] Care Team Providers Care Six Color Press Operator Name Role Phone Brenda Renee MD Primary Care Provider [phone] Encounter Details Date Type Department Care Team (Late st Contact Info) Description 11/02/2011 Results Only [facility] Laboratory Services - [facility] ([facility]) [address] [place] [id number] Liss Griffiths MD [address] [place] [address] [place] [address] Social History Tobacco Use Types Packs/Day Years [...] ? ALIZE MANJARREZ ? Accession #: ? [id number] ? : ? 1960 (Age: 50) ??F [...] endocervical tissue. Comment: ? The prior biopsy ([id number]) was examined. ??(Susannah Hughes)/[facility] Document reviewed and electronically signed by: [...] submitted entirely as (A1) and (A2). (Chikis Fonseca)/[facility] End of Report [facility] 11/02/2011 11/02/2011 16: 24 EDT us Liss Griffiths MD PATHOLOGY ORDERABLES Final Resu lt [facility] [address] [place] [address] documented in this encounter Visit Diagnoses Not on filedocumented in this encounter Care Teams Six Color Press Operator Relationship Specialty Start Date End Date Brenda Renee MD [address] [place] [address] [place] [address] PCP - General 08/03/10 documented as of this encounter
--- OUTSIDE RECORDS SUMMARY | 2024-08-20 15:48 | XMS_ITS | Encounter Summary ---
Author Organization [facility] Address [address] [place] [address] Care Team Providers Care Nut Feeder Name Role Phone Brenda Renee MD Primary Care Provider [phone] Encounter Details Date Type Department Care Team (Late st Contact Info) Description 09/09/2011 Results Only [facility] Laboratory Services - [facility] ([facility]) [address] [place], [place] [phone] Brenda Renee MD [facility] [address] Social History Tobacco Use Types [...] ? ALIZE MANJARREZ ? Accession #: ? [id number] ? : ? 1960 (Age: 50) ??F [...] Final Re sult [facility] [address] [place] [address] documented in this encounter Visit Diagnoses Not on filedocumented in this encounter Care Teams Nut Feeder Relationship Specialty Start Date End Date Brenda Renee MD [address] [place] [address] [place] [address] PCP - General 08/03/10 documented as of this encounter
--- OUTSIDE RECORDS SUMMARY | 2024-08-20 15:48 | XMS_ITS | Encounter Summary ---
Author Organization [facility] Address [address] [place] [address] Care Team Providers Care Desk Monitor Name Role Phone Unavailable Primary Care Provider Unavailabl e Encounter Details Date Type Department Care Team (Late st Contact Info) Description 04/30/2010 Results Only [facility] Laboratory Services - [facility] ([facility]) [address] [place], [place] [phone] Brenda Canchola MD [address] [place] [address] [address] [place], [place] [phone] Social History Tobacco Use Types Packs/Day Years [...] ? ALIZE MANJARREZ ? Accession #: ? [id number] ? : ? 1960 (Age: 49) ??F [...] ORDERABLES Final Re sult [facility] [address] [place] [address] documented in this encounter Visit Diagnoses Not on filedocumented in this encounter
--- OUTSIDE RECORDS SUMMARY | 2024-08-20 15:48 | XMS_ITS | Encounter Summary ---
Author Organization [facility] Address [address] [place] [address] Care Team Providers Care Commercial Horticulture Instructor Name Role Phone Brenda Renee MD Primary Care Provider [phone] Encounter Details Date Type Department Care Team (Late st Contact Info) Description 09/10/2010 Results Only [facility] Laboratory Services - [facility] ([facility]) [address] [place], [place] [phone] Brenda Renee MD [facility] [facility] [place] [address] Social History Tobacco Use Types [...] ? ALIZE MANJARREZ ? Accession #: ? [id number] ? : ? 1960 (Age: 49) ??F [...] ORDERABLES Final Re sult Performing Organization Address City/State/[facility] Co de Phone Number [facility] [address] [place] [address] documented in this encounter Visit Diagnoses Not on filedocumented in this encounter Care Teams Commercial Horticulture Instructor Relationship Specialty Start Date End Date Brenda Renee MD [address] [place] [address] [place] [address] PCP - General 08/03/10 documented as of this encounter
--- OUTSIDE RECORDS SUMMARY | 2024-08-20 15:48 | XMS_ITS ---
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 Treatments may have been administered in [...]
--- OUTSIDE RECORDS SUMMARY | 2024-08-20 15:48 | XMS_ITS | Encounter Summary ---
Author Organization [facility] Address [address] [place] [address] Care Team Providers Care Paper Products Supervisor Name Role Phone Brenda Canchola MD Primary Care Provider [phone] Encounter Details Date Type Department Care Team (Late st Contact Info) Description 02/04/2019 Historical Results Only [facility] Radiology Results [address] [place], [place] [phone] Kristin Rocha MD [address] [place] [address] Social History Tobacco Use Types [...] 02/04/2019 2 2:36 EDT ETHYL ALCOHOL - [facility] Routine 02/04/2019 20:27 EDT COMPLETE BLOOD COUNT [...] CC: ? Transcribed Date/Time: 02/04/2019 (2244) ? Toy Painter: ? Printed Date/Time: 03/27/2019 (181) ? PAGE 1 ? Signed Report ? Procedure Note Doris Posadas MD - 05/14/2019 EXAM: RADIOLOGY/CHEST PA LAT EX. D/ (2220) CLINICAL INFORMATION: weakness, recent pneumonia EXAM: XR [...] Posadas MD CC: Transcribed Date/Time: 02/04/2019 (224) Toy Painter: Printed Date/Time: 03/27/2019 (3948) PAGE 1 Signed Report us Kristin Rocha [...] CC: ? Transcribed Date/Time: 02/04/2019 (2236) ? Toy Painter: ? Printed Date/Time: 03/27/2019 (1818) ? [...] IN OTHER VENDOR SYSTEM 02/04/2019 Reported By: Doirs Posadas MD CC: Transcribed Date/Time: 02/04/2019 (4738) Toy Painter: Printed Date/Time: 03/27/2019 (9534) PAGE 1 Signed Report Kristin Rocha MD IMG CT ORDERABLES Madelin l Result * MAGNESIUM (02/04/2019 20:27 EDT) [facility] Magnesium 2.20 1.7 - 2.8 mg/dL 02/04/2019 21:08 EDT [facility] 02/04/2019 20:2 7 EDT 02/04/2019 20:29 EDT [facility] LAB - 02/04/2019 21:25 EDT AOT: 02/04/19 2105: BNP Kristin Rocha MD CHEMISTRY & BLOOD GAS ORDERABLES Final Result [facility] * ETHYL ALCOHOL - [facility] (02/04/2019 20:27 EDT) [facility] ETHYL ALCOHOL - [facility] <10.0 <10 mg/dL 02/04/2019 21:08 EDT [facility] 02/04/2019 20:2 7 EDT 02/04/2019 20:29 EDT [facility] - 02/04/2019 21:25 EDT AOT: 02/04/19 2105: BNP Kristin Rocha MD CHEMISTRY & BLOOD GAS ORDERABLES Final Result [facility] * (ABNORMAL) COMPREHENSIVE METABOLIC PANEL (CMP) (02/04/2019 20:27 EDT) [facility] Albumin % 3.3(L) 3.4 - 4.9 g/dL 02/04/2019 21:08 EDT [facility] ALKALINE PHOSPHATASE - [facility] 58 38 - 126 U/L 02/04/2019 21:08 EDT [facility] BILIRUBIN TOTAL 0.6 0.2 - 1.3 mg/dL 02/04/2019 21:08 [facility] BUN - [facility] 17 10 - 26 mg/dL 02/04/2019 21:08 [facility] CALCIUM - [facility] 8.8 8.5 - 10.5 mg/dL 02/04/2019 21:08 [facility] Chloride 93(L) 96 - 110 mmol/L 02/04/2019 21:08 [facility] CO2 Total 27 22 - 32 mEq/L 02/04/2019 21:08 [facility] CREATININE 0.77 0.52 - 1.04 mg/dL 02/04/2019 21:08 [facility] eGFR >60 02/04/2019 21:08 [facility] Comment: Chronic renal impairment is defined as GFR <60 Multiply result by 1.210 for patients. eGFR calculated using the IDMS-traceable MDRD Study Equation. ??(effective 05/12/2014) Anion Gap 9 0 - 18 02/04/2019 21:08 [facility] GLUCOSE - [facility] 262(H) 70 - 100 mg/dL 02/04/2019 21:08 [facility] Potassium 3.7 3.5 - 5.0 mEq/L 02/04/2019 21:08 [facility] Sodium 129(L) 136 - 145 mEq/L 02/04/2019 21:08 [facility] TOTAL PROTEIN - [facility] 5.8(L) 6.2 - 8.2 gm/dL 02/04/2019 21:08 [facility] SGOT/AST - [facility] 124(H) 14 - 36 U/L 02/04/2019 21:08 [facility] SGPT/ALT - [facility] 133(H) 9 - 52 U/L 9 21:08 [facility] 02/04/2019 20:2 7 EDT 02/04/2019 20:29 [facility] LAB - 02/04/2019 21:25 EDT AOT: 02/04/19 2105: BNP us Kristin Rocha MD CHEMISTRY & BLOOD GAS ORDERABLES Final Result [facility] * NT PRO BNP (02/04/2019 20:27 EDT) [facility] NT-pro BNP 190 <300 pg/mL 02/04/2019 21:25 [...] GAS ORDERABLES Final Result Performing Organization Address City/[facility]/ZIP Co de Phone Number [facility] * THYROID CASCADE (02/04/2019 20:27 EDT) [facility] TSH 4.05 0.46 - 4.68 uIU/mL 02/04/2019 21:38 EDT [facility] 02/04/2019 20:2 7 EDT 02/04/2019 20:30 EDT Kristin Rocha MD CHEMISTRY & BLOOD GAS ORDERABLES Final Result [facility] * (ABNORMAL) TROPONIN I (02/04/2019 20:27 EDT) [facility] Troponin I (ng/mL) 0.037(HH) 0.000 - [...] GAS ORDERABLES Final Result Performing Organization Address [facility] Co de Phone Number [facility] * D-DIMER (02/04/2019 20:27 EDT) [facility] D-Dimer 193 <230 ng/mLDDU 02/04/2019 21:20 EDT [facility] Comment: CUTOFF VALUE FOR THE EXCLUSION OF DVT and PE: 230 ng/mL D-dimer units. Any use of the age-adjusted cutoff value is a post-analytic modification of this FDA-approved test and is considered off-label use of the test result. [facility] does not have literature to support the validity of an age-adjusted cutoff for our specific assay. 02/04/2019 20:2 7 EDT 02/04/2019 21:06 EDT Kristin Rocha MD HEMATOLOGY & PF4 ORDER SHYLA Final Result Performing Organization Address [facility]/ZIP Co de Phone Number [facility] * (ABNORMAL) COMPLETE BLOOD COUNT WITH DIFFERENTIAL (AUTO) (02/04/2019 20:27 EDT) [facility] ABSOLUTE NEUTROPHIL COUN - [facility] 9.6(H) 2.2 - 8.85 10e3/uL 02/04/2019 20:35 EDT [facility] BASO # - [facility] 0.01 0.01 - 0.11 10e/uL 02/04/2019 20:35 [facility] BASO % - [facility] 0 0 - 2 % 02/04/2019 20:35 [facility] EOS # - [facility] 0.09 0.03 - 0.61 10e3/ul 02/04/2019 20:35 [facility] EOS % - [facility] 1 0 - 5 % 02/04/2019 20:35 [facility] GRAN % - [facility] 68.5 40 - 80 % 02/04/2019 20:35 [facility] HEMATOCRIT - [facility] 37.5 34.9 - 44.4 % 02/04/2019 20:35 [facility] HEMOGLOBIN - [facility] 12.8 11.6 - 15.2 g/dl 02/04/2019 20:35 [facility] IG# - [facility] 0.16 0 - 0.7 10e3/uL 02/04/2019 20:35 [facility] IG% - [facility] 1.1(H) 0 - 0.9 % 02/04/2019 20:35 [facility] LYMPH # - [facility] 3.1 1.09 - 3.3 10e3/ul 02/04/2019 20:35 [facility] LYMPH% - [facility] 22.5 20 - 40 % 02/04/2019 20:35 [facility] MEAN CORPUSCULAR HGB - [facility] 29.6 26.7 - 33.3 pg 02/04/2019 20:35 [facility] MEAN CORPUSCULAR HGB CONC - [facility] 34.1 32.1 - 35.9 g/dL 02/04/2019 20:35 [facility] MEAN CELL VOLUME - [facility] 86.6 81 - 98 fl 02/04/2019 20:35 [facility] MONO # - [facility] 1.0(H) 0.1 - 0.8 10e3/uL 02/04/2019 20:35 [facility] MONO% - [facility] 7.2 0 - 12 % 02/04/2019 20:35 EDT [facility] PLATELET COUNT 345 141 - 377 10e3/ul 02/04/2019 20:35 EDT [facility] RED BLOOD COUNT - [facility] 4.33 3.86 - 5.04 10e3/ul 02/04/2019 20:35 EDT [facility] RED CELL DISTRI WIDTH - [facility] 14.1 <14.7 % 02/04/2019 20:35 EDT [facility] WHITE BLOOD COUNT - [facility] 14.0(H) 4.0 - 12.4 10e3/ul 02/04/2019 20:35 EDT [facility] 02/04/2019 20:2 7 EDT 02/04/2019 20:30 EDT us Kristin Rocha MD HEMATOLOGY & PF4 ORDER SHYLA Final Result [facility] * (ABNORMAL) POCT GLUCOSE (02/04/2019 19:45 EDT) [facility] Signature Glucose, POC 262(H) 70 - 100 mg/dL 02/04/2019 19:51 EDT [facility] 02/04/2019 19:4 5 EDT 02/04/2019 19:51 EDT us Mack Varghese MD POINT OF CARE TEST ORDERABLES Final Result [facility] documented in this encounter Visit Diagnoses Not on filedocumented in this encounter Care Teams Paper Products Supervisor Relationship Specialty Start Date End Date Brenda Canchola MD [address] [place] [address] [place] [address] PCP - General 08/03/10 documented as of this encounter
--- OUTSIDE RECORDS SUMMARY | 2024-08-20 15:48 | XMS_ITS | Encounter Summary ---
Author Organization [facility] Address [address] [place] [address] Care Team Providers Care Women Specialist Name Role Phone Brenda Canchola MD Primary Care Provider [phone] Encounter Details Date Type Department Care Team (Late st Contact Info) Description 08/04/2010 Results Only Imaging [facility] Rheumatology - [facility], [address] [facility], [facility] [place] [address] [place] [address] Symone Hayden MD [address] [facility], [address] [place] [address] Social History Tobacco Use Types [...] hips dated Aug 04, 2010. Clinical history: 715.77-[id number]. bilateral hand pain and swelling. Bilateral hip [...] hips dated Aug 04, 2010. Clinical history: 715.34-[id number]. bilateral hand pain and swelling. Bilateral hip [...] on filedocumented in this encounter Care Teams Women Specialist Relationship Specialty Start Date End Date Brenda Canchola MD [address] [place] [address] [place] [address] PCP - General 08/03/10 documented as of this encounter
--- OUTSIDE RECORDS SUMMARY | 2024-08-20 15:48 | XMS_ITS | Encounter Summary ---
Author Organization [facility] Address [address] [place] [address] Care Team Providers Care Historic Interpreter Name Role Phone Brenda Renee MD Primary Care Provider [phone] Encounter Details Date Type Department Care Team (Late st Contact Info) Description 01/24/2014 Results Only [facility] Laboratory Services - [facility] ([facility]) [address] [place], [place] [phone] Brenda Renee MD [facility] [facility] [address] [address] Social History Tobacco Use Types [...] ? ALIZE MANJARREZ ? Accession #: ? [id number] ? : ? 1960 (Age: 53) ??F [...] types 16,18,31,33,35, 39,45,51,52,56,58, 59,66, and 68 by players assistant mediated amplification. Comments Document reviewed and electronically [...] Final Re sult [facility] [address] [place] [address] documented in this encounter Visit Diagnoses Not on filedocumented in this encounter Care Teams Historic Interpreter Relationship Specialty Start Date End Date Brenda Renee MD [address] [place] [address] [place] [address] PCP - General 08/03/10 documented as of this encounter
--- OUTSIDE RECORDS SUMMARY | 2024-08-20 15:48 | XMS_ITS | Clinical Summary ---
Author Organization [facility] Address [facility] [place] [address] Care Team Providers Care Gold Wheel Blocker And Polisher Name Role Phone Daryn Garrett MD Primary [...] 03/22/2023 Active inhalational spacing device (Hesham Aerosol Doniphan Enhancer) SpacerIndications:C hronic obstructive pulmonary disease, unspecified COPD type 1 each [place] [facility]Non-[place]rug; Combo Route) route as needed. 1 each 2 06/20/2023 Active Blood-Glucose Meter,Continuous (Dexcom G7 Shaping Machine Tender) MiscIndications:Typ e 2 diabetes mellitus with hyperglycemia, without long-term current use of insulin 1 Device by [facility]Non-Drug; Combo Route) route continuous. 08/18/2023 Active Blood-Glucose Sensor (Dexcom G7 Sensor) DeviceIndications:T ype 2 diabetes mellitus with hyperglycemia, without long-term current use of insulin 1 Device by [facility]Non-Drug; Combo Route) route every 10 days. 3 each 11 08/18/2023 Active fluticasone propionate (Flonase) 50 mcg/actuation [place], Suspension SPRAY 1 SPRAY IN EACH NOSTRIL TWO TIMES A DAY 48 mL 3 09/28/2023 Active fluticasone furoate-umeclidiniu m-vilanterol (Trelegy Ellipta) 200-62.5-25 mcgIndications:Cryptological Technician lorena obstructive pulmonary disease, unspecified COPD type [...] 11/24/2023 Active Miscellaneous Medical Supply Misc by [facility]Non-Drug; Combo Route) route. Active docusate sodium (Colace) [...] 90 tablet 3 05/27/2024 Active tirzepatide (Mounjaro) 5 mg/0.5 mL Pen InjectorIndications :Type 2 diabetes mellitus with hyperglycemia, without long-term current use of insulin,Essential hypertension,Drake ry artery disease involving [place] coronary artery of [place] heart with angina pectoris,Mixed hyperlipidemia Inject 5 mg subcutaneously once a week. 2 mL 11 06/26/2024 Active lamoTRIgine (LaMICtal) 150 mg tablet Take 1 tablet by mouth Daily at Noon. 90 tablet 3 06/26/2024 Active lamoTRIgine (LaMICtal) 25 mg tabletIndications:b ipolar disorder in remission Take 2 tablets by mouth nightly. Indications: bipolar disorder in remission 180 tablet 3 06/26/2024 Active Active Problems Problem Noted Date Diagnosed [...] 07/2018 Overview (08/01/2019): 2018 Normal Pap, HPV Insulation Technician eConsult 2019: She should have pap/HPV [...] in remission 05/10/20 Overview (05/10/2019): [place] [facility], [place] Anxiety 05/09/2019 [...] sciatica 03/28/2019 Coronary artery disease invo lving [place] coronary artery of [place] heart with angina pectoris 10/09/2007 Overview (06/27/2019): [...] Encounters Date Type Department Care Team Description 08/15/2024 [place]phone [place] [phone] Kalie Thibodeaux RN Pre Procedure Call (Sent med instructions through portal) 07/31/2024 Telephone Internal Medicine at [facility] [address] [place] [address] Zhang Prieto CMA Prior Authorization (tirzepatide (Mounjaro) 5 mg/0.5 mL Pen Injector) 07/17/2024 Telephone Internal Medicine at [address] [phone] Julia Gooden 07/17/2024 Telephone Internal Medicine at [facility] [address] [place] [address] Sharona Kitchen 06/24/2024 9:14 AM EST - 06/24/2024 3:50 PM [place] [address] Lower abdominal pain Discharge Disposition: Home 06/24/2024 Travel 06/21/2024 9:45 AM EST Laboratory Appointment Lab [address] [place] [address] Type 2 diabetes mellitus with diabetic polyneuropathy, with long-term current use of insulin; Essential hypertension 06/21/2024 8:30 AM EST Office Visit Internal Medicine at [facility] [address] [facility] [place] [address] Daryn Garrett MD Type 2 diabetes mellitus without long-term current use of insulin 06/20/2024 Travel 06/17/2024 Refill Internal Medicine at [facility] [address] [facility] [place] [address] Daryn Garrett MD 06/17/2024 Refill Internal Medicine at [facility] [address] [place] [address] Daryn Garrett MD 06/10/2024 [place] [address] Yashira Perez 06/07/2024 Ancillary Procedure Radiology Library at [facility] [place] [address] Daryn Garrett MD 06/04/2024 4:30 PM EST Laboratory Appointment Lab [place] [address] Irritable bowel syndrome with constipation 06/04/2024 1:00 PM EST Office [place] [address] Juanpablo Tran MD Irritable bowel syndrome with constipation 06/04/2024 Travel 05/30/2024 Travel 05/27/2024 9:00 AM EST Office Visit Internal Medicine at [facility] [address] [place] [address] Daryn Garrett MD Essential hypertension; Bipolar affective disorder in remission; Type 2 diabetes mellitus with diabetic polyneuropathy, with long-term current use of insulin; Coronary artery disease involving [place] coronary artery of [place] heart with angina pectoris; Diverticulitis of large intestine without perforation or abscess with bleeding; Type 2 diabetes mellitus without long-term current use of insulin 05/26/2024 Travel from Last 3 Months Immunizations Name Administration Dates Next Due Covid-19 (Moderna Spikevax) 12yrs+ (8900-1120) 06/21/2024 Covid-19 Bivalent (Pfizer Co mirnaty) 12yrs+ (3055-9787) 06/07/2022 Influenza Quadrivalent with Preservative 05/06/2020 Influenza Quadrivalent, Pres ervative Free 06/20/2023,06/07/2022,05/31/2021,04/09,05/08/2015 Influenza Trivalent, Preservative Free 12/13/202 4 Influenza Vaccine, Whole 05/10/2007 Pneumococcal 13-Valent Conju [...] Sign Reading Time Taken Comments Blood Pressure 150/84 06/24/2024 9:30 AM EST Pulse 82 06/24/2024 1:45 PM EST Temperature 36.9 ??C (98.4 ??F) 06/24/2024 8:52 AM ES T Respiratory Rate 16 06/24/2024 8:52 AM EST Oxygen Saturation 100% 06/24/2024 8:52 AM EST Inhaled Oxygen Concentration - - Weight 102.5 kg (226 lb) 06/24/2024 8:52 AM EST Height 161.3 cm (5' 3.5) 06/24/2024 8:52 AM EST Body Mass Index 39.41 06/24/2024 8:52 AM EST Plan of Treatment Upcoming Encounters Date Type Department Care Team (Latest Contact Info) Description 08/29/2024 1:00 PM EST Hospital En[place] [address] Roland Gooden MD [facility] [place] [address] 08/29/2024 1:00 PM EST - 08/29/2024 2:00 PM EST [place] [address] Roland Gooden MD [facility] [place] [address] EGD, UPPER GI ENDOSCOPY (WRVU 2.09) 10/02/2024 1:00 PM EDT Office Visit Ophthalmology at [place] [phone] Juanpablo Hernandez MD [facility] [place] [address] 10/21/2024 9:30 AM EDT Office Visit Internal Medicine at [place] [address] [place] [phone] Daryn Garrett MD [facility] [address] [place] [address] 01/30/2025 1:30 PM EDT Laboratory Appointment Lab [place] [facility] [place] [address] [place] [phone] 01/30/2025 3:[address] Scan at [place] [phone] Arturo Cordero MD [facility] [place] [address] 01/30/2025 4:15 PM EDT Office Visit H[place] [phone] Artruo Cordero MD [facility] [place] [address] Scheduled Procedures Name Priority Associated Diagnoses Date/Ti me EGD, UPPER GI ENDOSCOPY (WRVU 2.09) Irritable bowel syndrome with constipation 08/29/2024 1:00 PM EST COLONOSCOPY, DIAGNOSTIC (WRVU 3.26) Irritable bowel syndrome with constipation 08/29/2024 1:00 PM EST Health Maintenance Due Date Last Done Comments CT Colonography 1959 FIT DNA 1959 FIT 1959 Sigmoidoscopy (10 year) with FIT yearly 1959 Sigmoidoscopy 1959 Zoster vaccine (1 of 2) 11/11/2009 Advance Directive 11/11/2014 RSV Vaccine (1 - Risk 60-74 years 1-dose series) 2019 HPV test 01/07/2023 01/07/2018 (See prior EHR) PAP Smear 01/07/2023 01/07/2018 (See prior EHR) Pneumoccocal Vaccine: 50+ (3 of 3 - PCV20 or PCV21) 04/09/2024 04/09/2019, 05/10/2007 DM Urine Microalbumin yearly 12/19/2024 12/20/2023, 06/20/2023, 06/21/2019 DM Hemoglobin A1c 6 month 12/20/20242023, 03/20/2024, 12/20/2023, Additional history exists DM Opthalmology Exam 05/01/2025 05/01/2024, 07/26/2023, 10/05/2022, Additional history exists DM Creatinine yearly 06/24/2025 06/24/2024, 06/21/2024, 06/04/2024, Additional history exists Breast Cancer screening 05/01/2026 05/01/20, 11/30/2022, 07/27/2021, Additional history exists Tetanus/Diphtheria/Pertussi s Vaccines (4 - Td or Tdap) 04/09/2029 04/09/2019, 06/24/2011, 06/24/2011, Additional history exists Colonoscopy 04/18/2031 04/18/2021 (Outs ivelisse per patient (enter details in comments)), 04/18/2021 (Outside per patient (enter details in comments)) Colorectal Cancer Screening 04/18/2031 Breast Cancer Share Decision Needed 01/30/2110 Postponed from 1999 (Provider recommendation) HIV screen Completed 06/21/2019 Hepatitis C Screening Completed 06/21/2019 Covid-19 Vaccine Completed 06/21/2024, 06/07/2022 Influenza (Flu) vaccine Completed 06/21/20, 06/20/2023, 06/07/2022, Additional history exists Medical Devices Implanted Type Area Blanking Press Operator Device Identifier Shelf Expiration Date Model / Serial / Lot Cryopreserved Human Amniotic Membrane Implanted:Qty: 1 on 05/14/2020 by Juanpablo Hernandez MD at [facility] Left: Eye 03/27/2022 - / [id number] / Procedures Procedure Name Priority Date/Time Associated Diagnosis Comments CT ABDOMEN AND PELVIS W CONTRAST STAT 06/24/2024 2:41 PM EST URINALYSIS WITH REFLEX CULTURE STAT 06/24/2024 9:41 AM EST LIPASE STAT 06/24/2024 9:36 AM EST HEPATIC FUNCTION PANEL STAT 06/24/2024 9:36 AM EST BASIC METABOLIC PANEL STAT 06/24/2024 9:36 AM EST CBC (WITH DIFF) STAT 06/24/2024 9:36 AM EST BASIC METABOLIC PANEL Routine 06/21/2024 9:34 AM EST Essential hypertension HEMOGLOBIN A1C Routine 06/21/2024 9:34 AM EST Type 2 diabetes mellitus with diabetic polyneuropathy, with long-term current use of insulin FILM LIBRARY STORAGE ONLY CT ABDOMEN AND PELVIS Routine 06/07/2024 12:[address] SCAN (SCAN) 06/07/2024 12:00 AM EST TSH CASCADE Routine 06/04/2024 2:37 PM EST [...] Encounter for screening mammogram for breast cancer U ALBUMIN/CRE RATIO Routine 12/20/2023 2 :28 PM EDT Type 2 diabetes mellitus without long-term current use of insulin HC HIV SCREEN, 4TH GENERATION Routine 06/21/2019 2:09 PM EST Healthcare maintenance HC HEPATITIS C ANTIBODY Routine 06/21/2019 2:09 PM EST Healthcare maintenance from Last 3 Months or Most Recently Relevant to Health Maintenance Results * CT Abdomen & Pelvis w Contrast (06/24/2024 2:41 PM EST) WORKSTATION ID [id number] RAD Anatomical Region Laterality Modality Abdomen, Pelvis Computed Tomogra phy Impressions 06/24/2024 3:06 PM EST 1. ??No acute process in the abdomen or pelvis. Specifically, no diverticulitis. 2. ??Borderline hepatomegaly and hepatic steatosis. Thank you for letting us participate in the care of this patient. ??If you are a health care provider and have any questions regarding this report, please contact the number below. ??For patients who have questions please contact the health career orientation teacher that requested your imaging first. ? Electronically signed by: LEANDRA BLUNT MD, [facility] ([phone]), at 06/24/2024 3:06 PM Narrative 06/24/2024 3:06 PM EST EXAMINATION: CT ABDOMEN AND PELVIS W CONTRAST CLINICAL HISTORY: diffuse lower abdominal pain concern for worsening diverticulitis TECHNIQUE: Helical CT of the abdomen and pelvis following the intravenous administration of contrast. 120 cc Omnipaque 350. Oral contrast was administered. COMPARISON: CT 02/01/2024 and 06/07/2024 FINDINGS: Lower chest: Coronary artery calcification. Liver: Borderline enlargement and low attenuation. No focal lesion. Bile ducts: Nondilated. Gallbladder: No calcified gallstones. Normal caliber wall. Pancreas: Normal attenuation without ductal dilatation. Spleen: Normal. Adrenals: Normal. Kidneys: Focal cortical scarring in the posterior left interpole at the site of prior partial nephrectomy with stable appearance over multiple prior exams. Urinary Bladder: Decompressed limiting evaluation. Vasculature: No abdominal aortic aneurysm. Patent portal vein. Lymph Nodes: No enlarged lymph nodes. Bowel: Nondilated small and large bowel. Normal appendix. No colonic inflammation. Peritoneum and retroperitoneum: No free fluid or loculated fluid collection. No pneumoperitoneum. No mesenteric inflammation. Abdominal wall: Small fat-containing right inguinal hernia. Reproductive organs: Anteverted uterus. No adnexal mass. Osseous structures: No suspicious lesions. Multilevel degenerative disc disease. Procedure Note Leandra Blunt MD - 06/24/2024 EXAMINATION: CT ABDOMEN AND PELVIS W CONTRAST CLINICAL HISTORY: diffuse lower abdominal pain concern for worsening diverticulitis TECHNIQUE: Helical CT of the abdomen and pelvis following theintravenous administration of contrast. 120 cc Omnipaque 350. Oral contrast was administered. COMPARISON: CT 02/01/2024 and 06/07/2024 FINDINGS: Lower chest: Coronary artery calcification. Liver: Borderline enlargement and low attenuation. No focal lesion. Bile ducts: Nondilated. Gallbladder: No calcified gallstones. Normal caliber wall. Pancreas: Normal attenuation without ductal dilatation. Spleen: Normal. Adrenals: Normal. Kidneys: Focal cortical scarring in the posterior left interpole at thesite of prior partial nephrectomy with stable appearance over multiple priorexams. Urinary Bladder: Decompressed limiting evaluation. Vasculature: No abdominal aortic aneurysm. Patent portal vein. Lymph Nodes: No enlarged lymph nodes. Bowel: Nondilated small and large bowel. Normal appendix. No colonic inflammation. Peritoneum and retroperitoneum: No free fluid or loculated fluidcollection. No pneumoperitoneum. No mesenteric inflammation. Abdominal wall: Small fat-containing right inguinal hernia. Reproductive organs: Anteverted uterus. No adnexal mass. Osseous structures: No suspicious lesions. Multilevel degenerative discdisease. IMPRESSION 1. No acute process in the abdomen or pelvis. Specifically, nodiverticulitis. 2. Borderline hepatomegaly and hepatic steatosis. Thank you for letting us participate in the care of this patient. If youare a health care provider and have any questions regarding this report,please contact the number below. For patients who have questions please contactthe health career orientation teacher that requested your imaging first. Electronically signed by: LEANDRA BLUNT MD, [facility]([phone]), at 06/24/2024 3:06 PM Tito Cuba DO IMG CT ORDERABLES * Urinalysis with reflex Culture (06/24/2024 9:41 AM EST) Glucose, Urine Dipstick Negative Negative 06/24/2024 10:44 AM [facility] Protein, Urine Dipstick Negative Negative 06/24/2024 10:44 AM [facility] Bilirubin, Urine Dipstick Negative Negative 06/24/2024 10:44 AM [facility] Comment:Clinical correlation required for positive Urine Bilirubin results as false positive may occur with some drugs and drug related products. If a false positive is suspected a serum total bilirubin should be considered if clinically indicated. Urobilinogen, Urine Dipstick Normal Normal, 0.2 mg/dL, 1.0 mg/dL 06/24/2024 10:44 AM [facility] pH, Urine (dipstick) 5.5 5.0 - 8.0 06/24/2024 10:44 AM [facility] Blood, Urine Dipstick Negative Negative 06/24/2024 10:44 AM [facility] Ketone, Urine Dipstick Negative Negative 06/24/2024 10:44 AM [facility] Nitrite, Urine Dipstick Negative Negative 06/24/2024 10:44 AM [facility] Leukocytes, Urine Dipstick Negative Negative 06/24/2024 10:44 AM [facility] Specific [place] Urine Automated 1.012 1.005 - 1.030 06/24/2024 10:44 AM [facility] Appearance, Urine Dipstick Clear Clear 06/24/2024 10:44 AM [facility] Color, Urine Dipstick Yellow Yellow, Dark Yellow 06/24/2024 10:44 AM [facility] CULTURE ADDED? 06/24/2024 10:44 AM [facility] Urine URINE SPECIMEN OBTAINED BY CLEAN CATCH PROCEDURE / Unknown Non Blood Collection / Unknown 06/24/2024 9:41 AM EST 06/24/2024 10:05 AM EST Tito Cuba DO URINE ORDERABLES Performing Organization Address City/State/[facility] Co de Phone Number [facility] [place] [address] * (ABNORMAL) CBC (with Diff) (06/24/2024 9:36 AM EST) White Blood Cell 6.08 4.00 - 9.50 x10(3)/mc L 06/24/2024 9:53 AM [facility] Red Blood Cell 4.58 4.00 - 5.21 x10(6)/mc L 06/24/2024 9:53 AM [facility] Hemoglobin 13.5 11.7 - 15.5 g/dL 06/24/2024 9:53 AM [facility] Hematocrit 39.9 35.7 - 45.8 % 06/24/2024 9:53 AM [facility] Mean Cell Volume 87.1 82.6 - 94.4 fL 06/24/2024 9:53 AM [facility] Mean Cell Hemoglobin 29.5 27.1 - 32.0 pg 06/24/2024 9:53 AM [facility] Mean Cell Hemoglobin Concentration 33.8 31.7 - 35.0 g/dL 06/24/2024 9:53 AM [facility] Platelet 360(H) 145 - 357 x10(3)/mc L 06/24/2024 9:53 AM [facility] Mean Platelet Volume 9.6 7.6 - 12.9 fL 06/24/2024 9:53 AM [facility] RDW Standard Deviation 43.9 37.0 - 46.0 fL 06/24/2024 9:53 AM [facility] RDW coefficient of variation 13.7 11.5 - 14.1 % 06/24/2024 9:53 AM [facility] NRBC% auto 0.0 % 06/24/2024 9:53 AM [facility] NRBC Absolute <0.01 <0.01 x10(3)/mc L 06/24/2024 9:53 AM [facility] Neutrophil % 55.0 % 06/24/2024 9:53 AM [facility] Neutrophil Absolute (ANC) - Automated 3.34 1.70 - 6.10 x10(3)/mc L 06/24/2024 9:53 AM [facility] Lymph % 31.7 % 06/24/2024 9:53 AM [facility] Lymph Absolute 1.93 0.90 - 3.20 x10(3)/mc L 06/24/2024 9:53 AM [facility] Monocyte % 10.5 % 06/24/2024 9:53 AM [facility] Monocyte Absolute 0.64 0.30 - 0.90 x10(3)/mc L 06/24/2024 9:53 AM [facility] Eos % 1.8 % 06/24/2024 9:53 AM [facility] Eos Absolute 0.11 0.00 - 0.40 x10(3)/mc L 06/24/2024 9:53 AM [facility] Basophil % 0.7 % 06/24/2024 9:53 AM EST [facility] Baso Absolute 0.04 0.00 - 0.10 x10(3)/mc L 06/24/2024 9:53 AM EST [facility] Immature Gran % 0.3 % 9:53 AM [facility] Immature Gran Absolute <0.04 0.00 - 0.04 x10(3)/mc L 06/24/2024 9:53 AM EST [facility] Blood VENOUS BLOOD SPECIMEN / Unknown Venipuncture / Unknown 06/24/2024 9:36 AM EST 06/24/2024 9:43 AM EST Tito Cuba DO HEMATOLOGY ORDERABLE S Performing Organization Address City/[facility]/ZIP Co de Phone Number [facility] [place] [address] * Lipase (06/24/2024 9:36 AM EST) Lipase 39 0 - 60 unit/L 06/24/2024 10:12 AM [facility] Blood VENOUS BLOOD SPECIMEN / Unknown Venipuncture / Unknown 06/24/2024 9:36 AM EST 06/24/2024 9:43 AM EST Tito Cuba DO CHEMISTRY ORDERABLES [facility] [place] [address] * Hepatic Function Panel (06/24/2024 9:36 AM EST) Albumin 4.1 3.2 - 5.2 g/dL 06/24/2024 10:12 AM [facility] Aspartate Aminotransferase 23 <=30 unit/L 06/24/2024 10:12 AM [facility] Alanine Aminotransferase 27 0 - 30 unit/L 06/24/2024 10:12 AM [facility] Alkaline Phosphatase 104 35 - 105 unit/L 06/24/2024 10:12 AM [facility] Bilirubin, Total 0.5 <=1.3 mg/dL 06/24/2024 10:12 AM [facility] Bilirubin, Direct <0.2 0.0 - 0.3 mg/dL 06/24/2024 10:12 AM [facility] Protein, Total 7.1 6.1 - 8.0 g/dL 06/24/2024 10:12 AM [facility] Blood VENOUS BLOOD SPECIMEN / Unknown Venipuncture / Unknown 06/24/2024 9:36 AM EST 06/24/2024 9:43 AM EST Tito Cuba DO CHEMISTRY ORDERABLES [facility] [place] [address] * Basic Metabolic Panel (06/24/2024 9:36 AM EST) Only the most recent of2 resultswithin the time period is included. Glucose 184 65 - 199 mg/dL 06/24/2024 10:12 AM [facility] Comment:Glucose Concentratio n >=200 mg/dL plus symptoms is consistent with Diabetes Mellitus. Blood Urea Nitrogen 8 8 - 18 mg/dL 06/24/2024 10:12 AM [facility] Creatinine 0.76 0.70 - 1.20 mg/dL 06/24/2024 10:12 AM [facility] Sodium 140 135 - 145 mMol/L 06/24/2024 10:12 AM [facility] Potassium 4.1 3.5 - 5.0 mMol/L 06/24/2024 10:12 AM [facility] Chloride 104 98 - 107 mMol/L 06/24/2024 10:12 AM [facility] Carbon Dioxide 22 22 - 31 mMol/L 06/24/2024 10:12 AM [facility] Anion Gap 14 5 - 15 mMol/L 06/24/2024 10:12 AM EST [facility] Calcium 9.5 8.5 - 10.5 mg/dL 06/24/2024 10:12 AM EST [facility] Est Glomerular Filtration Rate - Female 88 mL/min/1. 73 m?? 06/24/2024 10:12 AM EST [facility] Comment: This patient's estimated GFR [...] eGFR. Link: eGFR Calculator [employer] Blood VENOUS BLOOD SPECIMEN / Unknown Venipuncture / Unknown 06/24/2024 9:36 AM EST 06/24/2024 9:43 AM EST Tito Cuba DO CHEMISTRY ORDERABLES [facility] [place] [address] * (ABNORMAL) Hemoglobin A1c (06/21/2024 9:34 AM EST) Hemoglobin A1c 7.3(H) 4.3 - 5.6 % 06/21/2024 10:19 AM EST [facility] Comment: Per ADA guidelines, without [...] red blood cell turnover may not be enrollment representative of glycemic control. Reference Interval: 4.3 - 5.6% 5.7 - 6.4%: Consistent with prediabetes >=6.5%: Consistent with diagnosis of diabetes mellitus Estimated Average Glucose 163 mg/dL 06/21/2024 10:19 AM EST [facility] Blood VENOUS BLOOD SPECIMEN / Unknown Venipuncture / Unknown 06/21/2024 9:34 AM EST 06/21/2024 9:55 AM EST Daryn Garrett MD CHEMISTRY ORDERABLES Performing Organization Address [facility] Co de Phone Number [facility] [place] [address] * Scan Doc: CT Scan (06/07/2024 12:00 AM EST) Anatomical Region Laterality Modality Other Narrative 06/07/2024 12:00 AM EST Ordered by an unspecified provider. Scanning Provider MEDIA MGR SCAN EXT O RDR/RSLT * Film Library- Storage Only CT Abdomen & Pelvis (06/07/2024 12:00 AM EST) Narrative [facility] - 06/11/2024 3:00 PM EST This exam is auto-finalizing. It's purpose is for storage only. Daryn Garrett MD IMG FILM LIBRARY ORD ERABLES Performing Organization Address [facility] Phone Number [place], [place] * TSH [place] (06/04/2024 2:37 PM EST) Thyroid Stimulating Hormone [...] Tran MD CHEMISTRY ORDERABLES Performing Organization Address [facility] Co de Phone Number [facility] [place] [address] * Tissue Transglutaminase, IgA (06/04/2024 2:37 PM EST) TTG IgA Ab 0.4 <=10.0 U/mL 06/05/2024 11:40 AM EST [facility] Blood VENOUS BLOOD SPECIMEN / Unknown Venipuncture / Unknown 06/04/2024 2:37 PM EST 06/04/2024 2:37 PM EST Narrative [facility] - 06/05/2024 11:40 AM EST <7 U/mL: Negative 7-10 U/mL: Indeterminate >10 U/mL: Positive Juanpablo Tran MD IMMUNOLOGY ORDERABLE S Performing Organization Address [facility] Co de Phone Number [facility] [place] [address] * IgA (06/04/2024 2:37 PM EST) IgA 262 70 - 400 mg/dL 06/04/2024 3:19 PM EST [facility] Blood VENOUS BLOOD SPECIMEN / Unknown Venipuncture / Unknown 06/04/2024 2:37 PM EST 06/04/2024 2:37 PM EST Juanpablo Tran MD CHEMISTRY ORDERABLES Performing Organization Address City/[facility]/ZIP Co de Phone Number [facility] [place] [address] * IgG (06/04/2024 2:37 PM EST) IgG 923 700 - 1,600 mg/dL 06/04/2024 3:19 PM EST [facility] Blood VENOUS BLOOD SPECIMEN / Unknown Venipuncture / Unknown 06/04/2024 2:37 PM EST 06/04/2024 2:37 PM EST Juanpablo Tran MD CHEMISTRY ORDERABLES [facility] [place] [address] * Comprehensive metabolic panel Non-fasting (06/04/2024 2:37 PM EST) Glucose 167 65 - 199 mg/dL 06/04/2024 3:28 PM EST [facility] Comment:Glucose Concentratio n >=200 mg/dL plus symptoms is consistent with Diabetes Mellitus. Blood Urea Nitrogen 12 8 - 18 mg/dL 06/04/2024 3:28 PM EST [facility] Creatinine 0.86 0.70 - 1.20 mg/dL 06/04/2024 3:28 PM [facility] Sodium 142 135 - 145 mMol/L 06/04/2024 3:28 PM [facility] Potassium 4.1 3.5 - 5.0 mMol/L 06/04/2024 3:28 PM [facility] Chloride 105 98 - 107 mMol/L 06/04/2024 3:28 PM [facility] Carbon Dioxide 26 22 - 31 mMol/L 06/04/2024 3:28 PM [facility] Anion Gap 11 5 - 15 mMol/L 06/04/2024 3:28 PM [facility] Calcium 9.9 8.5 - 10.5 mg/dL 06/04/2024 3:28 PM [facility] Protein, Total 7.4 6.1 - 8.0 g/dL 06/04/2024 3:28 PM [facility] Albumin 4.4 3.2 - 5.2 g/dL 06/04/2024 3:28 PM [facility] Aspartate Aminotransferase 19 <=30 unit/L 06/04/2024 3:28 PM [facility] Alanine Aminotransferase 30 0 - 30 unit/L 06/04/2024 3:28 PM [facility] Alkaline Phosphatase 96 35 - 105 unit/L 06/04/2024 3:28 PM [facility] Bilirubin, Total 0.5 <=1.3 mg/dL 06/04/2024 3:28 PM EST [facility] Est Glomerular Filtration Rate - Female 76 mL/min/1. 73 m?? 06/04/2024 3:28 PM EST [facility] Comment: This patient's estimated GFR [...] Fasting Status No 06/04/2024 3:28 PM EST [facility] Blood VENOUS BLOOD SPECIMEN / Unknown Venipuncture / Unknown 06/04/2024 2:37 PM EST 06/04/2024 2:37 PM EST Juanpablo Tran MD CHEMISTRY ORDERABLES Performing Organization Address City/State/[facility] Co de Phone Number [facility] [place] [address] * Mammo Screening Cad and Jose Guadalupe [...] [facility]. BIRADS CATEGORY 1: NEGATIVE [[id number]] Electronically signed by: ZEENAT FLORES MD [facility] at [address] [address] Your breast imaging exam done on: ??05/01/24 [...] Padilla MD IMG MAMMO ORDERABLE S * U Albumin/Cre Ratio (12/20/2023 2:28 PM EDT) Albumin / Creatinin Ratio, Urine Not Calculated 0 - 29 mcg/mg Cr [facility] Comment: Reference Ranges: <30 mcg/mg: [...] 2, 357? 362 Albumin, Urine <3.0 mg/L [facility] Creatinine, Urine 75 mg/dL [facility] Urine 12/20/2023 2:28 PM EDT 12/20/2023 4:11 PM EDT Narrative Resulting Agency Comment Spec In Lab Rodney Padilla MD URINE ORDERABLES [facility] [place] [address] * Hepatitis C Antibody (06/21/2019 2:09 PM EST) Hepatitis C Antibody Negative Negative [facility] Blood specimen (specimen) 06/21/2019 2:09 PM EST 06/21/2019 6:01 PM EST Narrative Resulting Agency Comment Spec In Lab Luis E Narayan MD CHEMISTRY ORDERABLE S Performing Organization Address City/[facility]/ZIP Co de Phone Number [facility] [place] [address] * HIV Screen, 4th Generation [place] [place]CGP[place] (06/21/2019 2:09 PM EST) HIV Ab/Ag Screen Negative Negative [facility] Comment: This 4th Generation HIV [...] ORDERABLE S [facility] [place] [address] from Last 3 Months or Most Recently [...] capacity to make decision: Yes Care Teams Gold Wheel Blocker And Polisher Relationship Specialty Start Date End Date Daryn Garrett MD [facility] [address] [place] [address] PCP - General 04/10/24
--- OUTSIDE RECORDS SUMMARY | 2024-08-20 15:48 | XMS_ITS | Encounter Summary ---
Author Organization [facility] Address [address] [place] [address] Care Team Providers Care Street Openings Inspector Name Role Phone Brenda Canchola MD Primary Care Provider [phone] Reason for Visit * Reason Comments Joint Pain Encounter Details Date Type Department Care Team (Late st Contact Info) Description 08/04/2010 13:00 EST Office Visit [facility] Rheumatology & Immunology - [address] [id number] Del Ni MD [address] [place] [address], [address] [place] [phone] Miguel Leonard MD [address] [place] [phone] Osteoarthritis (Primary Dx) Social History Tobacco Use [...] be very helpful. 3. You can try Lakewood 3 fatty acids- 2,000 to 3000 mg per day. Talk with your scada operator to make sure this is okay with [...] It is hard to hold a pen, tip mender a washcloth or snowblower because it's hard [...] with 11 refills 5. Can also try Lakewood 3 fatty acids, 5974-6098 mg daily but discuss with scada operator first to makesure this is okay with [...] LES Final Result [facility] [address] [place] [address] * SED. RATE:WESTERGREN (08/04/2010 15:46 EST) Sed. Rate Westergren 14 0 - 30 mm/hr [facility] Blood specimen (specimen) 08/04/2010 15:46 EST 08/04/2010 15:49 EST Del Ni MD HEMATOLOGY & PF4 ORDERABLES F inal Result Performing Organization Address [facility] [place] [address] * VITAMIN D (25,OH) (08/04/2010 15:46 EST) 25OH Vitamin D Tot 46.6 ng/ml [facility] Comment: Reference Range: <10 ng/ml: Deficient 10-30 ng/ml: Insufficient 30-100 ng/ml: Sufficient >100 ng/ml: Toxic Blood specimen (specimen) 08/04/2010 15:46 EST 08/04/2010 15:49 EST Del Ni MD CHEMISTRY & BLOOD GAS ORDERAB LES Final Result Performing Organization Address [facility] [place] [address] * TSH (08/04/2010 15:46 EST) Pathologist [facility] TSH 1.67 0.35 - 5.00 uIU/ml [facility] Blood specimen (specimen) 08/04/2010 15:46 EST 08/04/2010 15:49 EST Del Ni MD CHEMISTRY & BLOOD GAS ORDERAB LES Final Result Performing Organization Address [facility] [place] [address] * HIP UNILATERAL 1 VIEW (08/04/2010 15:00 EST) Anatomical Region Laterality Modality Other 08/04/2010 15:0 0 EST 08/05/2010 14:54 EST Narrative 08/05/2010 14:54 EST Two views of the left hand, 2 views of the right hand, AP ortho pelvis, and frog-leg lateral views of both hips dated Aug 04, 2010. Clinical history: 715.97-SOLZHUCGOXMBNJ-S4. bilateral hand pain and swelling. Bilateral hip [...] hips dated Aug 04, 2010. Clinical history: 715.43-ATHIKOPHCSTXVO-X1. bilateral hand pain and swelling. Bilateral hip [...] hips dated Aug 04, 2010. Clinical history: 715.84-FXXNYNTJCWCDWK-Q3. bilateral hand pain and swelling. Bilateral hip [...] hips dated Aug 04, 2010. Clinical history: 715.35-HNPQFDAHKIWMFR-M8. bilateral hand pain and swelling. Bilateral hip [...] hips dated Aug 04, 2010. Clinical history: 715.41-AKMBRFDMTUBYMY-D9. bilateral hand pain and swelling. Bilateral hip [...] hips dated Aug 04, 2010. Clinical history: 715.55-EFEEHVAIUZRRXV-F7. bilateral hand pain and swelling. Bilateral hip [...] hips dated Aug 04, 2010. Clinical history: 715.60-CHHPZIQUPLYFAX-V4. bilateral hand pain and swelling. Bilateral hip [...] hips dated Aug 04, 2010. Clinical history: 715.51-ZZPYFWLUBAJTES-D4. bilateral hand pain and swelling. Bilateral hip [...] needed. added in this encounter Care Teams Street Openings Inspector Relationship Specialty Start Date End Date Brenda Canchola MD [address] [place] [address] [place] [address] PCP - General 08/03/10 documented as of this encounter
--- OUTSIDE RECORDS SUMMARY | 2024-08-20 15:48 | XMS_ITS | Encounter Summary ---
Author Organization [facility] Address [address] [place] [address] Care Team Providers Care Model Maker Apprentice Name Role Phone Brenda Renee MD Primary Care Provider [phone] Encounter Details Date Type Department Care Team (Late st Contact Info) Description 09/21/2011 Results Only [facility] Laboratory Services - [facility] ([facility]) [address] [place] [phone] Liss Griffiths MD [address] [place] [address] [place] [address] Social History Tobacco Use Types Packs/Day Years [...] ? ALIZE MANJARREZ ? Accession #: ? [id number] ? : ? 1960 (Age: 50) ??F [...] Griffiths on 09/26/2011 at 4:20 p.m. (Dr. Dong)/[facility] Document reviewed and electronically signed [...] as (A1) and (A2) following filtration. ??(Juanjose Mejía/[facility] End of Report [facility] 09/21/2011 09/22/2011 9:0 6 EDT us Liss Griffiths MD PATHOLOGY ORDERABLES Final Resu lt [facility] [address] [place] [address] documented in this encounter Visit Diagnoses Not on filedocumented in this encounter Care Teams Model Maker Apprentice Relationship Specialty Start Date End Date Brenda Renee MD [address] [place] [address] [place] [address] PCP - General 08/03/10 documented as of this encounter
--- OUTSIDE RECORDS SUMMARY | 2024-08-20 15:48 | XMS_ITS | Encounter Summary ---
Author Organization [facility] Address [address] [place] [address] Care Team Providers Care Marsh Buggy Operator Name Role Phone Unavailable Primary Care Provider Unavailabl e Encounter Details Date Type Department Care Team (Late st Contact Info) Description 03/11/2009 Orders Only [facility] Laboratory Services - [facility] ([facility]) [address] [place] [address] Liss Griffiths MD [address] [place] [address] [place] [address] Social History Tobacco Use Types Packs/Day Years [...] ? ALIZE MANJARREZ ? Accession #: ? [id number] ? : ? 1960 (Age: 48) ??F [...] ORDERABLES Final Resu lt [facility] [address] [place] [address] documented in this encounter Visit Diagnoses Not on filedocumented in this encounter
--- OUTSIDE RECORDS SUMMARY | 2024-08-20 15:48 | XMS_ITS | Encounter Summary ---
Author Organization [facility] Address [address] [place] [address] Care Team Providers Care Rehab Nurse Name Role Phone Brenda Canchola MD Primary Care Provider [phone] Encounter Details Date Type Department Care Team (Late st Contact Info) Description 08/04/2010 15:13 EST - 08/04/2010 23:59 EST Hospital Encounter [address] [address] Symone Hayden MD [address] [place] [address], [address] [place] [phone] Osteoarthritis Discharge Disposition: Auto Discharge Social History [...] LES Final Result [facility] [address] [place] [address] * SED. RATE:WESTERGREN (08/04/2010 15:46 EST) Pathologist [facility] Sed. Rate Roniren 14 0 - 30 mm/hr [facility] Blood specimen (specimen) 08/04/2010 15:46 EST 08/04/2010 15:49 EST us Weleetka S Libman MD HEMATOLOGY & PF4 ORDERABLES F inal Result Performing Organization Address [facility] Co de Phone Number [facility] [address] [place] [address] * VITAMIN D (25,OH) (08/04/2010 15:46 EST) 25OH Vitamin D Tot 46.6 ng/ml [facility] Comment: Reference Range: <10 ng/ml: Deficient 10-30 ng/ml: Insufficient 30-100 ng/ml: Sufficient >100 ng/ml: Toxic Blood specimen (specimen) 08/04/2010 15:46 EST 08/04/2010 15:49 EST Symone Hayden MD CHEMISTRY & BLOOD GAS ORDERAB LES Final Result Performing Organization Address [facility] Co de Phone Number [address] [address] * TSH (08/04/2010 15:46 EST) Pathologist [facility] TSH 1.67 0.35 - 5.00 uIU/ml [facility] Blood specimen (specimen) 08/04/2010 15:46 EST 08/04/2010 15:49 EST Symone Hayden MD CHEMISTRY & BLOOD GAS ORDERAB LES Final Result Performing Organization Address [facility] [[email or web address]] de Phone Number [facility] [address] [place] [address] documented in this encounter Visit Diagnoses Diagnosis Osteoarthritis Osteoarthrosis, unspecified whether generalized or localized, unspecified site documented in this encounter Care Teams Rehab Nurse Relationship Specialty Start Date End Date Brenda Canchola MD [address] [place] [address] [place] [address] PCP - General 08/03/10 documented as of this encounter
--- OUTSIDE RECORDS SUMMARY | 2024-08-20 15:49 | XMS_ITS | Encounter Summary ---
[place] [address] Care Team Providers Care Staple Side Laster Name Role Phone Daryn Garrett MD Primary Care Provider Encounter Details Date Type Department Care Team (Late st Contact Info) Description 06/10/2024 Telephone [place] [phone] Yashira Perez Social History Tobacco Use Types Packs/Day Years [...] encounter Miscellaneous Notes * Telephone Encounter - Yashira Perez - 06/10/2024 2:01 PM EST Alize Gramajo [id number] Diagnosis/Indication: see case Please review patient chart to confirm if previous Endoscopy procedure was performed within system. If yes, take note of Anesthesia type used. If previous procedure found, and with MAC/propofol Anesthesia support was used, schedule this procedure with Anesthesia and skip the Anesthesia portion of questions. If not performed within system, not performed at all, or performed with IVCS, ask Anesthesia questions. SCHEDULING QUESTIONS (ask all patient these questions) Have you ever had a/an Upper Endoscopy & Colonoscopy before? Yes: Date EGD/colo 3 yrs ago - If yes, did you have any problems with the procedure (such as waking up during the procedure, pain or difficulties afterwards, etc.)? No What type of sedation was used: General Anesthesia (ASK ONLY FOR COLONOSCOPY PROCEDURES) Are you aware, or have you ever been told that you had a poor prep or failed prep with a previous colonoscopy? No If yes, assign the Extended MiraLAX Prep (ASK ONLY FOR COLONOSCOPY PROCEDURES) Do you have an ongoing history of constipation? (E.g., hard stools, >2 days without a bowel movement, straining or difficulty passing stool) No If yes, assign the Extended MiraLAX Prep Do you take any blood thinners or have you been diagnosed with a bleeding disorder that increases your risk of bleeding with procedures? No Do you have a Pacemaker or Defibrillator device? If yes, send pool message to Cardiology with patient information and date or procedure. No Do you have diabetes? If yes, call PCP/managing provider to discuss use of prep and any questions or concerns related to. Yes: Controlled by diet or medication? Both If yes, assign the Extended MiraLAX Prep Do you take any iron supplements or vitamins that contain iron? No Do you take a GLP-1 medication for diabetes and/or weight loss? All patients who say yes, regardless of procedure, must be on clear liquids day prior to procedure. If patient answers yes, you must note which medication and instruct to hold the medication prior to procedure for one dose. Brand names include Wegovy, Ozempic, Trulicity, Mounjaro, Zepbound, Rynelsus, Saxenda, Victoza, Byetta, Bydureon, Soliqua, Xultophy Yes, mounjaro Do you have a preference regarding the gender of your provider? No ANESTHESIA QUESTIONS (YES to any question, please book with Anesthesia support) Have you ever been diagnosed with Pulmonary Hypertension and/or Congential Heart Disease? No Have you been diagnosed with A-Fib (atrial fibrillation) that is NOT being well controled with medications? No Have you ever had an allergic or adverse reaction to Fentanyl or Versed? No Have you had a problem with sedation or anesthesia? (Waking up during procedure, extreme confusion after, etc.) No Do you have a diagnosis of Obstructive Sleep Apnea that requires the use of a c- pap machine? Yes Do you use an oxygen tank at home? No Do you use a rescue inhaler more than twice per day? (COPD, severe asthma) No Do you experience breathing problems when you lay flat for a period of time? No Do you regularly take prescription opioid pain medications on a daily basis? (Includes oxycodone, Percocet, Suboxone, methadone, etc.) No If yes, assign the Extended MiraLAX Prep SCHEDULING CONFIRMATIONS: Please note any and all parts of your conversation with the patient here. We offer all new patients an opportunity to have an appointment with one of our associate care providers to learn more about your upcoming procedure, ask questions and get answers. These appointmentsare offered via telehealth. Would you be interested in scheduling this appointment? (Only ask if NEW referral patient; skip this question if GI provider ordered the procedure.) No Is there any other information or concerns you would like to us to share with your care team in relation to your upcoming scheduled procedure? No You must have a responsible libertarian who will drive you to your procedure, stay on campus for the entire duration of your procedure, and drive you home from your procedure. Who will likely be your escort vehicle driver for the procedure? *Please Verify the height and weight, and adjust if height and/or weight have changed* Estimated body mass index is 40.23 kg/m?? as calculated from the following: Height as of 06/04/24: 161.3 cm (5' 3.5). Weight as of 06/04/24: 104.6 kg (230 lb 11.2 oz). Age:63 y.o. documented in this encounter Plan of Treatment Upcoming Encounters Date Type Department Care Team (Latest Contact Info) Description 08/29/2024 1:00 PM EST Hospital Encounter [place] [address] Roland Gooden MD [facility] [place] [address] 08/29/2024 1:00 PM EST - 08/29/2024 2:00 PM EST Surgery Gastroenterology at [place] [phone] Roland Gooden MD [facility] [place] [address] EGD, UPPER GI ENDOSCOPY (WRVU 2.09) 10/02/2024 1:00 PM EDT Office [place] [phone] Juanpablo Hernandez MD [facility] [place] [address] 10/21/2024 9:30 AM EDT Office Visit Internal Medicine at [facility] [address] [place] [address] Daryn Garrett MD [facility] [place] [address] 01/30/2025 1:30 PM EDT Laboratory Appointment Lab at [facility] Hematology Oncology [address] [place] [phone] 01/30/2025 3:[address] [place] [phone] Arturo Cordero MD [facility] DR [place]EM[place]Y [place] [address] 01/30/2025 4:15 PM EDT Office Visit Hematology [place] [address] Arturo Cordero MD [facility] DR [place]EMAT[place]Y [place] [address] Scheduled Procedures Name Priority Associated Diagnoses Date/Ti me EGD, UPPER GI ENDOSCOPY (WRVU 2.09) Irritable bowel syndrome with constipation 08/29/2024 1:00 PM EST COLONOSCOPY, DIAGNOSTIC (WRVU 3.26) Irritable bowel syndrome with constipation 08/29/2024 1:00 PM EST documented as of this encounter Visit Diagnoses Not on filedocumented in this encounter Care Teams Staple Side Laster Relationship Specialty Start Date End Date Daryn Garrett MD [facility] [place] [address] PCP - General 04/10/24 documented as of this encounter
--- OUTSIDE RECORDS SUMMARY | 2024-08-20 15:49 | XMS_ITS | Encounter Summary ---
Author Organization [facility] Address [facility] [place] [address] Care Team Providers Care Channel Program Manager Name Role Phone Daryn Garrett MD [...] 1:00 PM EST Hospital Encounter [place] [address] Roland Gooden MD [facility] [place] [address] 08/29/2024 1:00 PM EST - 08/29/2024 2:00 PM EST Surgery [place] [phone] Roland Gooden MD [facility] [place] [address] EGD, UPPER GI ENDOSCOPY (WRVU 2.09) 10/02/2024 1:00 PM EDT Office [place] [phone] Juanpablo Hernandez MD [facility] [place] [address] 10/21/2024 9:30 AM EDT Office Visit Internal Medicine at [facility] [address] [place] [phone] Daryn Garrett MD [facility] [place] [address] 01/30/2025 1:30 PM EDT Laboratory Appointment Lab at [facility] Hematology Oncology [address] [place], [place] [phone] 01/30/2025 3:[address] Scan at [place] [phone] Arturo Cordero MD [facility] [place] [address] 01/30/2025 4:15 PM EDT Office Visit Hematology [place] [phone] Arturo Cordero MD [facility] DR [place] [address] Scheduled Procedures Name Priority Associated Diagnoses Date/Ti me EGD, UPPER GI ENDOSCOPY (WRVU 2.09) Irritable bowel syndrome with constipation 08/29/2024 1:00 PM EST COLONOSCOPY, DIAGNOSTIC (WRVU 3.26) Irritable bowel syndrome with constipation 08/29/2024 1:00 PM EST documented as of this encounter Visit Diagnoses Not on filedocumented in this encounter Care Teams Channel Program Manager Relationship Specialty Start Date End Date Daryn Garrett MD [facility] [place] [address] PCP - General 04/10/24 documented as of this encounter
--- OUTSIDE RECORDS SUMMARY | 2024-08-20 15:49 | XMS_ITS | Encounter Summary ---
[place] [address] Care Team Providers Care Violin Mechanic Name Role Phone Daryn Garrett MD Primary Care Provider Reason for Visit * Reason Comments Abdominal Pain Encounter Details Date Type Department Care Team (Late st Contact Info) Description 06/24/2024 9:14 AM EST - 06/24/2024 3:50 PM EST Emergency Emergency Department [place] [phone] Lower abdominal pain Discharge Disposition: Home Social History Tobacco [...] Mass Index 39.41 06/24/2024 8:52 AM EST documented in this encounter Discharge Instructions * Discharge Instructions* Mal Partida PA - 06/24/2024 3:32 PM EST You were seen in the emergency department for abdominal discomfort. Your CT scan did not show any evidence of diverticulitis or an acute surgical problem in your abdomen. GI has discussed the possibility of gastroparesis after seeing a previously and this could likely be what is causing your symptoms today. You are also on Mounjaro which can also sometimes cause abdominal discomfort and bloating.I do recommend that you follow-up with your primary care provider as well as GI to discuss your symptoms further. Return to the emergency department as needed for any acutely worsening symptoms or other concerns. * Attachments The following attachments cannot be sent through Care Everywhere. * Abdominal Pain ([place]) documented in this encounter Medications at Time of Discharge Medication Sig Dispensed Refills Start Date End Date amoxicillin-clavulana te (Augmentin) 875-125 mg tablet Take 1 tablet by mouth 2 times daily. 20 tablet 05/27/2024 LORazepam (Ativan) 0.5 mg tabletIndications:anx iety Take 1 tablet by mouth every 8 hours. Indications: anxious 90 tablet 3 05/27/2024 nitroGLYcerin (Nitrostat) 0.[address] 1 tablet under the tongue See Admin Instructions. 30 tablet 5 04/17/2024 sucralfate (Carafate) 100 mg/mL Suspension Take 10 mLs by mouth 4 times daily. 3726 mL 3 04/09/2024 Miscellaneous Medical Supply Misc by [facility]Non-Drug; Combo Route) route. docusate sodium (Colace) 100 [...] daily. Indications: diabetes 100 each 11 11/02/2023 fluticasone furoate-umeclidinium- vilanterol (Trelegy Ellipta) 200-62.5-25 mcgIndications:Chroni c obstructive pulmonary disease, unspecified COPD type Inhale 1 puff into the lungs daily. Rinse mouth after use 1 each 10/24/2023 fluticasone propionate (Flonase) 50 mcg/actuation [place], Suspension SPRAY 1 SPRAY IN EACH NOSTRIL TWO TIMES A DAY 48 mL 3 09/28/2023 Blood-Glucose Meter,Continuous (Dexcom G7 Concrete Worker) MiscIndications:Type 2 diabetes mellitus with hyperglycemia, without long-term current use of insulin 1 Device by [facility].(Non-Drug; Combo Route) route continuous. 08/18/2023 Blood-Glucose Sensor (Dexcom G7 Sensor) DeviceIndications:Typ e 2 diabetes mellitus with hyperglycemia, without long-term current use of insulin 1 Device by [facility].(Non-Drug; Combo Route) route every 10 days. 3 each 11 08/18/2023 inhalational spacing device (Hesham Aerosol [place] Enhancer) SpacerIndications:Chr onic obstructive pulmonary disease, unspecified COPD type 1 each by [facility].(Non-Drug; Combo Route) route as needed. 1 each 2 06/20/2023 loratadine (Claritin) 10 mg Tablet Take 1 [...] (E.C.) Take 81 mg by mouth daily. tirzepatide (Mounjaro) 7.5 mg/0.5 mL Pen Injector INJECT 0.5ML UNDER THE SKIN ONCE A WEEK 2 mL 11 06/18/2024 06/26/2024 lamoTRIgine (LaMICtal) 150 mg tablet Take 150 mg by mouth Daily at Noon. 08/17/2023 06/26/2024 lamoTRIgine (LaMICtal) 25 mg tabletIndications:bip olar disorder in remission Take 50 mg by mouth nightly. Indications: bipolar disorder in remission 06/26/2024 documented as of this encounter ED Notes * Paulina Simpson RN - 06/24/2024 3:21 PM EST Sabrina CARLIN at bedside to reassess pt and review d/c instructions. * Joe Pak NRP - 06/24/2024 12:06 PM EST Oral prep started * aMl Partida PA - 06/24/2024 9:37 AM EST ED Provider Note HPI: Alize Gramajo is a 63 y.o. female with history of melanoma, coronary artery disease, hypertension,sleep apnea, diabetes, who presents to the Emergency Department with several weeks of lower abdominal pain that has been coming and going. Patient does have chronic abdominal pain and has been seen by GI here at [facility] regarding her symptoms. She was recently treated with 2 rounds of Augmentin for presumed diverticulitis at [facility]. She says that since stopping the antibiotics her symptoms have worsened. Denies any blood in her stool. Denies any nausea or vomiting. She does report that she feels quite bloated and the pain comes and goes. Patient also recently started taking Mounja ro a few weeks ago and has lost weight since starting the medication. ROS as per HPI Vitals: ED Triage Vitals [06/24/24 0852] BP: 139/90 Heart Rate: 70 Resp: 16 Temp: 36.9 ??C (98.4 ??F) Temp src: Oral SpO2: 100 % O2 Device: RA O2 Flow Rate (L/min): n/a Physical Exam Constitutional: Appearance: She is well-developed. HENT: Head: Normocephalic. Eyes: Pupils: Pupils are equal, round, and reactive to light. Cardiovascular: Rate and Rhythm: Normal rate and regular rhythm. Pulmonary: Effort: Pulmonary effort is normal. Breath sounds: Normal breath sounds. Abdominal: General: Bowel sounds are normal. Palpations: Abdomen is soft. Comments: Left lower quadrant abdominal tenderness without peritoneal signs. Musculoskeletal: Cervical back: Neck supple. Skin: General: Skin is warm and dry. Neurological: Mental Status: She is alert and oriented to person, place, and time. Psychiatric: Mood and Affect: Mood normal. ED Course: I have reviewed labs and imaging, images and available reports, and they are significant for: CT Abdomen & Pelvis w Contrast Final Result 1. No acute process in the abdomen or pelvis. Specifically, no diverticulitis. 2. Borderline hepatomegaly and hepatic steatosis. Thank you for letting us participate in the care of this patient. If you are a health care provider and have any questions regarding this report, please contact the number below. For patients who have questions please contact the health manager long term care that requested your imaging first. Electronically signed by: LEANDRA MOONEY MD, [facility] ([phone]), at 06/24/2024 3:06 PM Procedures Assessment and Plan: 63 y.o. female with history of coronary artery disease, hyperlipidemia, hypertension, depression, sleep apnea, diabetes, neuropathy, kidney cancer and cognitive impairment who presents to the emergency department with over a month of waxing and waning abdominal pain. Patient is followed by GI here at the hospital and is being worked up for a possible gastric motility problem.Patient also recentlystarted Radha however says the symptoms started prior to taking that. She was recently treated with 2 rounds of Augmentin after being diagnosed with diverticulitis on CT scan at [facility]. She reports that she did feel her symptoms improved while taking the Augmentin however her symptoms recently worsened. Overall she is nontoxic-appearing. She has no peritoneal signs on exam. HerCT scan does not show any evidence for diverticulitis or any acute intraabdominal process. She doeshave chronic hepatic steatosis which she is aware of. Her LFTs here today are normal. Given her normal CT scan and reassuring exam we will have her continue to follow-up with GI in the outpatient setting. She will return to the emergency department as needed for any acutely worsening pain or other concerns. Did this case involve critical care? No The visit findings, diagnosis, and care plan were discussed with the patient. The diagnosis and care plans discussions were outlined in the discharge instructions. The patient expressed understanding of the details of the visit, the return precautions and that she should return to the ER at any time for worsening symptoms, new symptoms, or other concerns. she agrees with thefollow- up plan. Mal Partida PA 06/25/24 0835 documented in this encounter Miscellaneous Notes * ED Triage - Alison Sanchez RN - 06/24/2024 8:54 AM EST Pt arrive via pov c/o hx of diverticulitis, believes she has had it since April-May, has taken augmentin, feels chills but afebrile, has problems with constipation and bowel movements, denies blood/black stool, no changes in voiding-increase/incontinence, increase thirst, denies chest pain/sob, +headache no dizziness, gcs-15 warm/pink/dry ambulated to triage. C/o abd pain across abd to theleft flank and downward. documented in this encounter Plan of Treatment Upcoming Encounters Date Type Department Care Team (Latest Contact Info) Description 08/29/2024 1:00 PM EST Hospital Encounter [place] [phone] Roland Gooden MD [facility] [place] [address] 08/29/2024 1:00 PM EST - 08/29/2024 2:00 PM EST [place] [phone] Roland Gooden MD [facility] [place] [address] EGD, UPPER GI ENDOSCOPY (WRVU 2.09) 10/02/2024 1:00 PM EDT Office [place] [phone] Juanpablo Hernandez MD [facility] [place] [address] 10/21/2024 9:30 AM EDT Office Visit Internal Medicine at [address] [phone] Daryn Garrett MD [facility] [address] [facility] [place] [address] 01/30/2025 1:30 PM EDT Laboratory Appointment Lab at [facility] Hematology Oncology [address] [place] [phone] 01/30/2025 3:[address] [place] [phone] Arturo Cordero MD [facility] HEMATOLOGY [place] [address] 01/30/2025 4:15 PM EDT Office Visit Hematology [place] [phone] Arturo Cordero MD [facility] HEMAT[place]Y [place] [address] Scheduled Orders Name Type Priority Associated Diagnoses Orde r Schedule EKG 12 Lead ECG STAT One Time for 1 Occurrences starting 06/24/2024 until 06/24/2024 Scheduled Procedures Name Priority Associated Diagnoses Date/Ti me EGD, UPPER GI ENDOSCOPY (WRVU 2.09) Irritable bowel syndrome with constipation 08/29/2024 1:00 PM EST COLONOSCOPY, DIAGNOSTIC (WRVU 3.26) Irritable bowel syndrome with constipation 08/29/2024 1:00 PM EST documented as of this encounter Procedures Procedure Name Priority Date/Time Associated Diagnosis Comments CT ABDOMEN AND PELVIS W CONTRAST STAT 06/24/2024 2:41 PM EST URINALYSIS WITH REFLEX CULTURE STAT 06/24/2024 9:41 AM EST CBC (WITH DIFF) STAT 06/24/2024 9:36 AM EST LIPASE STAT 06/24/2024 9:36 AM EST HEPATIC FUNCTION PANEL STAT 06/24/2024 9:36 AM EST BASIC METABOLIC PANEL STAT 06/24/2024 9:36 AM EST documented in this encounter Results * CT Abdomen & Pelvis w Contrast (06/24/2024 2:41 PM EST) WORKSTATION ID [id number] RAD Anatomical Region Laterality Modality Abdomen, Pelvis [...] who have questions please contact the health manager long term care that requested your imaging first. ? Electronically signed by: LEANDRA MOONEY MD, [facility] ([phone]), at 06/24/2024 3:06 PM Narrative 06/24/2024 3:06 [...] Multilevel degenerative disc disease. Procedure Note Leandra Mooney MD - 06/24/2024 EXAMINATION: CT ABDOMEN AND [...] patients who have questions please contactthe health manager long term care that requested your imaging first. Electronically signed by: LEANDRA MOONEY MD, [facility]([phone]), at 06/24/2024 3:06 PM Tito Cuba DO [facility] ORDERABLES * Urinalysis with reflex Culture (06/24/2024 9:41 AM EST) Glucose, Urine Dipstick Negative Negative 06/24/2024 10:44 AM [facility] Protein, Urine Dipstick Negative Negative 06/24/2024 10:44 AM [facility] Bilirubin, Urine Dipstick Negative Negative 06/24/2024 10:44 AM [facility] Comment:Clinical correlation required for positive Urine Bilirubin results as false positive may occur with some drugs and drug related products. If a false positive is suspected a serum total bilirubin should be considered if clinically indicated. Urobilinogen, Urine Dipstick Normal Normal, 0.2 mg/dL, 1.0 mg/dL 06/24/2024 10:44 AM [facility] pH, Urine (dipstick) 5.5 5.0 - 8.0 06/24/2024 10:44 AM [facility] Blood, Urine Dipstick Negative Negative 06/24/2024 10:44 AM [facility] Ketone, Urine Dipstick Negative Negative 06/24/2024 10:44 AM [facility] Nitrite, Urine Dipstick Negative Negative 06/24/2024 10:44 AM [facility] Leukocytes, Urine Dipstick Negative Negative 06/24/2024 10:44 AM [facility] Specific [place] Urine Automated 1.012 1.005 - 1.030 06/24/2024 10:44 AM [facility] Appearance, Urine Dipstick Clear Clear 06/24/2024 10:44 AM [facility] Color, Urine Dipstick Yellow Yellow, Dark Yellow 06/24/2024 10:44 AM [facility] CULTURE ADDED? 06/24/2024 10:44 AM [facility] Urine URINE SPECIMEN OBTAINED BY CLEAN CATCH PROCEDURE / Unknown Non Blood Collection / Unknown 06/24/2024 9:41 AM EST 06/24/2024 10:05 AM EST Tito Cuba DO URINE ORDERABLES [facility] [place] [address] * Lipase (06/24/2024 9:36 AM EST) Lipase 39 0 - 60 unit/L 06/24/2024 10:12 AM EST [facility] Blood VENOUS BLOOD SPECIMEN / Unknown Venipuncture / Unknown 06/24/2024 9:36 AM EST 06/24/2024 9:43 AM EST Tito Cuba DO CHEMISTRY ORDERABLES [facility] [place] [address] * Hepatic Function Panel (06/24/2024 9:36 AM EST) Albumin 4.1 3.2 - 5.2 g/dL 06/24/2024 10:12 AM [facility] Aspartate Aminotransferase 23 <=30 unit/L 06/24/2024 10:12 AM [facility] Alanine Aminotransferase 27 0 - 30 unit/L 06/24/2024 10:12 AM [facility] Alkaline Phosphatase 104 35 - 105 unit/L 06/24/2024 10:12 AM [facility] Bilirubin, Total 0.5 <=1.3 mg/dL 06/24/2024 10:12 AM [facility] Bilirubin, Direct <0.2 0.0 - 0.3 mg/dL 06/24/2024 10:12 AM [facility] Protein, Total 7.1 6.1 - 8.0 g/dL 06/24/2024 10:12 AM [facility] Blood VENOUS BLOOD SPECIMEN / Unknown Venipuncture / Unknown 06/24/2024 9:36 AM EST 06/24/2024 9:43 AM EST Tito Cuba DO CHEMISTRY ORDERABLES [facility] [place] [address] * Basic Metabolic Panel (06/24/2024 9:36 AM EST) Glucose 184 65 - 199 mg/dL 06/24/2024 10:12 AM [facility] Comment:Glucose Concentratio n >=200 mg/dL plus symptoms is consistent with Diabetes Mellitus. Blood Urea Nitrogen 8 8 - 18 mg/dL 06/24/2024 10:12 AM [facility] Creatinine 0.76 0.70 - 1.20 mg/dL 06/24/2024 10:12 AM [facility] Sodium 140 135 - 145 mMol/L 06/24/2024 10:12 AM [facility] Potassium 4.1 3.5 - 5.0 mMol/L 06/24/2024 10:12 AM [facility] Chloride 104 98 - 107 mMol/L 06/24/2024 10:12 AM [facility] Carbon Dioxide 22 22 - 31 mMol/L 06/24/2024 10:12 AM [facility] Anion Gap 14 5 - 15 mMol/L 06/24/2024 10:12 AM [facility] Calcium 9.5 8.5 - 10.5 mg/dL 06/24/2024 10:12 AM [facility] Est Glomerular Filtration Rate - Female 88 mL/min/1. 73 m?? 06/24/2024 10:12 AM [facility] Comment: This patient's estimated GFR [...] AM EST Tito Cuba DO CHEMISTRY ORDERABLES [facility] [place] [address] * (ABNORMAL) CBC (with Diff) (06/24/2024 9:36 AM EST) White Blood Cell 6.08 4.00 - 9.50 x10(3)/mc L 06/24/2024 9:53 AM [facility] Red Blood Cell 4.58 4.00 - 5.21 x10(6)/mc L 06/24/2024 9:53 AM [facility] Hemoglobin 13.5 11.7 - 15.5 g/dL 06/24/2024 9:53 AM [facility] Hematocrit 39.9 35.7 - 45.8 % 06/24/2024 9:53 AM [facility] Mean Cell Volume 87.1 82.6 - 94.4 fL 06/24/2024 9:53 AM [facility] Mean Cell Hemoglobin 29.5 27.1 - 32.0 pg 06/24/2024 9:53 AM [facility] Mean Cell Hemoglobin Concentration 33.8 31.7 - 35.0 g/dL 06/24/2024 9:53 AM [facility] Platelet 360(H) 145 - 357 x10(3)/mc L 06/24/2024 9:53 AM [facility] Mean Platelet Volume 9.6 7.6 - 12.9 fL 06/24/2024 9:53 AM [facility] RDW Standard Deviation 43.9 37.0 - 46.0 fL 06/24/2024 9:53 AM [facility] RDW coefficient of variation 13.7 11.5 - 14.1 % 06/24/2024 9:53 AM [facility] NRBC% auto 0.0 % 06/24/2024 9:53 AM [facility] NRBC Absolute <0.01 <0.01 x10(3)/mc L 06/24/2024 9:53 AM [facility] Neutrophil % 55.0 % 06/24/2024 9:53 AM [facility] Neutrophil Absolute (ANC) - Automated 3.34 1.70 - 6.10 x10(3)/mc L 06/24/2024 9:53 AM [facility] Lymph % 31.7 % 06/24/2024 9:53 AM [facility] Lymph Absolute 1.93 0.90 - 3.20 x10(3)/mc L 06/24/2024 9:53 AM [facility] Monocyte % 10.5 % 06/24/2024 9:53 AM [facility] Monocyte Absolute 0.64 0.30 - 0.90 x10(3)/mc L 06/24/2024 9:53 AM [facility] Eos % 1.8 % 06/24/2024 9:53 AM [facility] Eos Absolute 0.11 0.00 - 0.40 x10(3)/mc L 06/24/2024 9:53 AM [facility] Basophil % 0.7 % 06/24/2024 9:53 AM [facility] Baso Absolute 0.04 0.00 - 0.10 x10(3)/mc L 06/24/2024 9:53 AM [facility] Immature Gran % 0.3 % 9:53 AM [facility] Immature Gran Absolute <0.04 0.00 - 0.04 x10(3)/mc L 06/24/2024 9:53 AM [facility] Blood VENOUS BLOOD SPECIMEN / Unknown Venipuncture / Unknown 06/24/2024 9:36 AM EST 06/24/2024 9:43 AM EST Tito Bereket [facility] ORDERABLE S [facility] [place] [address] documented in this encounter Visit Diagnoses Diagnosis Lower abdominal pain Abdominal pain, other specified site Irritable bowel syndrome with constipation Irritable bowel syndrome documented in this encounter Administered Medications Inactive Administered Medications - up to 3 most recent administrations Medication Order MAR Action Action Date Dose Rate Site iohexoL (Omnipaque) (350 mg/mL) solution 0-200 mL 0-200 mL, Intravenous, ONCE PRN, 1 dose, Starting on Mon06/24/24 at 1427, Until Mon06/24/24 at 1431, Per Protocol, Warning Vesicant/Irritant Medication , Radiology Contrast, Routine Given 06/24/2024 2:31 PM EST 120 mLs iohexoL (Omnipaque) radiology oral prep (50 mL of oral contrast) 240 mL, Oral, ONCE, 1 dose, On Mon06/24/24 at 1245, 8 ounce cup = 240 mL of contrast 2 hours before scan as tolerated. The patient should not eat food or drink any other liquids during the entire period in which they are drinking the contrast. Mix 1 bottle (50 mL) of Omnipaque 350 with 1 liter (1,000 mL) non-carbonated beverage (preferably water). Close cover and shake vigorously and then refrigerate, if desired. Dispose of any excess preparation in a sink. Properly dispose of container., Routine Given 06/24/2024 12:05 PM EST 240 mLs documented in this encounter Active and Recently Administered Medications Times are shown in EST. Scheduled Medication Order 06/22/2024 06/23/2024 06/24/2024 iohexoL (Omnipaque) (350 mg/mL) solution 0-50 mL 0-50 mL, Oral, ONCE, 1 dose, On Mon06/24/24 at 1515, Warning Vesicant/Irritant Medication , Radiology Contrast, Routine 1515 (Due) iohexoL (Omnipaque) radiology oral prep (50 mL of oral contrast) (COMPLETED)(Linked Group 1) 240 mL, Oral, ONCE, 1 dose, On Mon06/24/24 at 1245, 8 ounce cup = 240 mL of contrast 2 hours before scan as tolerated. The patient should not eat food or drink any other liquids during the entire period in which they are drinking the contrast. Mix 1 bottle (50 mL) of Omnipaque 350 with 1 liter (1,000 mL) non-carbonated beverage (preferably water). Close cover and shake vigorously and then refrigerate, if desired. Dispose of any excess preparation in a sink. Properly dispose of container., Routine 1205 (Given - Provid er: Joe Pak, FCO) iohexoL (Omnipaque) radiology oral prep (50 mL of oral contrast)(Linked Group 1) 240 mL, Oral, ONCE, 1 dose, On Mon06/24/24 at 1315, 8 ounce cup = 240 mL of contrast 1 hour before scan as tolerated. The patient should not eat food or drink any other liquids during the entire period in which they are drinking the contrast. Mix 1 bottle (50 mL) of Omnipaque 350 with 1 liter (1,000 mL) non-carbonated beverage (preferably water). Close cover and shake vigorously and then refrigerate, if desired. Dispose of any excess preparation in a sink. Properly dispose of container., Routine 1315 (Due) iohexoL (Omnipaque) radiology oral prep (50 mL of oral contrast)(Linked Group 1) 240 mL, Oral, ONCE, 1 dose, On Mon06/24/24 at 1345, 8 ounce cup = 240 mL of contrast 30 minutes before scan as tolerated. The patient should not eat food or drink any other liquids during the entire period in which they are drinking the contrast. Mix 1 bottle (50 mL) of Omnipaque 350 with 1 liter (1,000 mL) non-carbonated beverage (preferably water). Close cover and shake vigorously and then refrigerate, if desired. Dispose of any excess preparation in a sink. Properly dispose of container., Routine 1345 (Due) iohexoL (Omnipaque) radiology oral prep (50 mL of oral contrast)(Linked Group 1) 240 mL, Oral, ONCE, 1 dose, On Mon06/24/24 at 1400, 8 ounce cup = 240 mL of contrast 15 minutes before scan as tolerated. The patient should not eat food or drink any other liquids during the entire period in which they are drinking the contrast. Mix 1 bottle (50 mL) of Omnipaque 350 with 1 liter (1,000 mL) non-carbonated beverage (preferably water). Close cover and shake vigorously and then refrigerate, if desired. Dispose of any excess preparation in a sink. Properly dispose of container., Routine 1400 (Due) PRN Medication Order 06/22/2024 06/23/2024 06/24/2024 iohexoL (Omnipaque) (350 mg/mL) solution 0-200 mL (COMPLETED) 0-200 mL, Intravenous, ONCE PRN, 1 dose, Starting on Mon06/24/24 at 1427, Until Mon06/24/24 at 1431, Per Protocol, Warning Vesicant/Irritant Medication , Radiology Contrast, Routine 1431 (Given - Provid er: Bridgette Ennis) Linked Groups Order Group 1: iohexoL (Omnipaque) radiology oral prep (50 mL of oral contrast) (COMPLETED)Jump to med 240 mL, Oral, ONCE, 1 dose, On Mon06/24/24 at 1245, 8 ounce cup = 240 mL of contrast 2 hours before scan as tolerated. The patient should not eat food or drink any other liquids during the entire period in which they are drinking the contrast. Mix 1 bottle (50 mL) of Omnipaque 350 with 1 liter (1,000 mL) non-carbonated beverage (preferably water). Close cover and shake vigorously and then refrigerate, if desired. Dispose of any excess preparation in a sink. Properly dispose of container., Routine Followed by iohexoL (Omnipaque) radiology oral prep (50 mL of oral contrast)Jump to med 240 mL, Oral, ONCE, 1 dose, On Mon06/24/24 at 1315, 8 ounce cup = 240 mL of contrast 1 hour before scan as tolerated. The patient should not eat food or drink any other liquids during the entire period in which they are drinking the contrast. Mix 1 bottle (50 mL) of Omnipaque 350 with 1 liter (1,000 mL) non-carbonated beverage (preferably water). Close cover and shake vigorously and then refrigerate, if desired. Dispose of any excess preparation in a sink. Properly dispose of container., Routine Followed by iohexoL (Omnipaque) radiology oral prep (50 mL of oral contrast)Jump to med 240 mL, Oral, ONCE, 1 dose, On Mon06/24/24 at 1345, 8 ounce cup = 240 mL of contrast 30 minutes before scan as tolerated. The patient should not eat food or drink any other liquids during the entire period in which they are drinking the contrast. Mix 1 bottle (50 mL) of Omnipaque 350 with 1 liter (1,000 mL) non-carbonated beverage (preferably water). Close cover and shake vigorously and then refrigerate, if desired. Dispose of any excess preparation in a sink. Properly dispose of container., Routine Followed by iohexoL (Omnipaque) radiology oral prep (50 mL of oral contrast)Jump to med 240 mL, Oral, ONCE, 1 dose, On Mon06/24/24 at 1400, 8 ounce cup = 240 mL of contrast 15 minutes before scan as tolerated. The patient should not eat food or drink any other liquids during the entire period in which they are drinking the contrast. Mix 1 bottle (50 mL) of Omnipaque 350 with 1 liter (1,000 mL) non-carbonated beverage (preferably water). Close cover and shake vigorously and then refrigerate, if desired. Dispose of any excess preparation in a sink. Properly dispose of container., Routine documented in this encounter Care Teams Violin Mechanic Relationship Specialty Start Date End Date Daryn Garrett MD [facility] [address] LILI [place] [address] PCP - General 04/10/24 documented as of this encounter
--- OUTSIDE RECORDS SUMMARY | 2024-08-20 15:49 | XMS_ITS | Encounter Summary ---
Author Organization [facility] Address [facility] [place] [address] Care Team Providers Care Air Brush Decorator Name Role Phone Daryn Garrett MD Primary Care Provider Reason for Visit * Reason Comments Medication Check Encounter Details Date Type Department Care Team (Late st Contact Info) Description 05/27/2024 9:00 AM EST Office Visit Internal Medicine at [facility] [address] [place] [address] Daryn Garrett MD [facility] DR LILI WALKER [place] [address] Essential hypertension; Bipolar affective disorder in remission; Type 2 diabetes mellitus with diabetic polyneuropathy, with long-term current use of insulin; 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 female presenting to Internal Medicine at [facility] for a clinicvisit. Follow up Patient new [...] mellitus Yes Miscellaneous Medical Supply Misc by [facility].(Non-Drug; Combo Route) route. Yes docusate sodium (Colace) [...] min before or during use. Yes fluticasone jdniwnw-iqatxsadyetf-amiwnwjjax (Trelegy Ellipta) 200-62.5-25 mcg Inhale 1 puff into the lungs daily. Rinse mouth after use Yes fluticasone propionate (Flonase) 50 mcg/actuation Brilliant, Suspension SPRAY 1 SPRAY IN EACH NOSTRIL TWO TIMES A DAY Yes lamoTRIgine (LaMICtal) 150 mg tablet Take 150 mg by mouth Daily at Noon. Yes Blood-Glucose Meter,Continuous (Dexcom G7 Foundation Relations Manager) Misc 1 Device by [facility].(Non- Drug; Combo Route) route continuous. Yes Blood-Glucose Sensor (Dexcom G7 Sensor) Device 1 Device by [facility].(Non-Drug; Combo Route) route every10 days. Yes inhalational spacing device (Hesham Aerosol [place] Enhancer) Spacer 1 each by [facility].(Non-Drug; Combo Route) route as needed. 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 Diverticulitis of large [...] found Next appointment at Internal Medicine at [facility]: Visit date not found documented in this encounter Plan of Treatment Upcoming Encounters Date Type Department Care Team (Latest Contact Info) Description 08/29/2024 1:00 PM EST Hospital En[place] [phone] Roland Gooden MD [facility] [place] [address] 08/29/2024 1:00 PM EST - 08/29/2024 2:00 PM EST [place] [phone] Roland Gooden MD [facility] [place] [address] EGD, UPPER GI ENDOSCOPY (WRVU 2.09) 10/02/2024 1:00 PM EDT Office [place] [phone] Juanpablo Hernandez MD [facility] [place] [address] 10/21/2024 9:30 AM EDT Office Visit Internal Medicine at [place] [address] [place] [phone] Daryn Garrett MD [facility] DR LILI WALKER [place] [address] 01/30/2025 1:30 PM EDT Laboratory Appointment Lab at [facility] Hematology Oncology [address] [place] [phone] 01/30/2025 3:[address] [place] [phone] Arturo Cordero MD [facility] DR HEMATOLOGY [place] [address] 01/30/2025 4:15 PM EDT Office Visit Hematology [place] [phone] Arturo Cordero MD [facility] DR HEMATOLOGY [place] [address] Scheduled Procedures Name Priority Associated Diagnoses Date/Ti ct EGD, UPPER GI ENDOSCOPY (WRVU 2.09) Irritable bowel syndrome with constipation 08/29/2024 1:00 PM EST COLONOSCOPY, DIAGNOSTIC (WRVU 3.26) Irritable bowel syndrome with constipation 08/29/2024 1:00 PM EST documented as of this encounter Results * (ABNORMAL) Hemoglobin A1c (06/21/2024 9:34 AM EST) Hemoglobin A1c 7.3(H) 4.3 - 5.6 % 06/21/2024 10:19 AM EST [facility] Comment: Per ADA guidelines, without [...] red blood cell turnover may not be financial services representative of glycemic control. Reference Interval: 4.3 - 5.6% 5.7 - 6.4%: Consistent with prediabetes >=6.5%: Consistent with diagnosis of diabetes mellitus Estimated Average Glucose 163 mg/dL 06/21/2024 10:19 AM [facility] Blood VENOUS BLOOD SPECIMEN / Unknown Venipuncture / Unknown 06/21/2024 9:34 AM EST 06/21/2024 9:55 AM EST Daryn Garrett MD CHEMISTRY ORDERABLES [facility] [place] [address] * Basic Metabolic Panel Non-fasting (06/21/2024 9:34 AM EST) Glucose 177 65 - 199 mg/dL 06/21/2024 10:27 AM [facility] Comment:Glucose Concentratio n >=200 mg/dL plus symptoms is consistent with Diabetes Mellitus. Blood Urea Nitrogen 8 8 - 18 mg/dL 06/21/2024 10:27 AM [facility] Creatinine 0.79 0.70 - 1.20 mg/dL 06/21/2024 10:27 AM [facility] Sodium 141 135 - 145 mMol/L 06/21/2024 10:27 AM [facility] Potassium 3.9 3.5 - 5.0 mMol/L 06/21/2024 10:27 AM [facility] Chloride 105 98 - 107 mMol/L 06/21/2024 10:27 AM [facility] Carbon Dioxide 24 22 - 31 mMol/L 06/21/2024 10:27 AM [facility] Anion Gap 12 5 - 15 mMol/L 06/21/2024 10:27 AM EST [facility] Calcium 9.4 8.5 - 10.5 mg/dL 06/21/2024 10:27 AM [facility] Est Glomerular Filtration Rate - Female 84 mL/min/1. 73 m?? 06/21/2024 10:27 AM EST [facility] Comment: This patient's estimated [...] Calculator [employer] Fasting Status No 06/21/2024 10:27 AM EST [facility] Blood VENOUS BLOOD SPECIMEN / Unknown Venipuncture / Unknown 06/21/2024 9:34 AM EST 06/21/2024 9:55 AM EST Daryn Garrett MD CHEMISTRY ORDERABLES [facility] [place] [phone] documented in this encounter Visit Diagnoses Diagnosis Essential hypertension Unspecified essential hypertension Bipolar affective disorder in remission Type 2 diabetes mellitus with diabetic polyneuropathy, with long-term current use of insulin 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
--- OUTSIDE RECORDS SUMMARY | 2024-08-20 15:49 | XMS_ITS | Encounter Summary ---
Author Organization [facility] Address [facility] [place] [address] Care Team Providers Care Fitness Floor Attendant Name Role Phone Daryn Garrett MD Primary Care Provider Encounter Details Date Type Department Care Team (Latest Contact Info) Description 06/20/2024 Travel Social History Tobacco Use Types Packs/Day [...] 1:00 PM EST Hospital En[place] [address] Roland Gooden MD [facility] [place] [address] 08/29/2024 1:00 PM EST - 08/29/2024 2:00 PM EST [place] [phone] Roland Gooden MD [facility] [place] [address] EGD, UPPER GI ENDOSCOPY (WRVU 2.09) 10/02/2024 1:00 PM EDT Office [place] [phone] Juanpablo Hernandez MD [facility] [place] [place] [address] 10/21/2024 9:30 AM EDT Office Visit Internal Medicine at [facility] [address] [place] [phone] Daryn Garrett MD [facility] [place] [address] 01/30/2025 1:30 PM EDT Laboratory Appointment Lab at [facility] Hematology Oncology [address] [place], [place] [phone] 01/30/2025 3:[address] Scan at [place] [phone] Arturo Cordero MD [facility] HEMATOLOGY [place] [address] 01/30/2025 4:15 PM EDT Office Visit Hematology [place] [phone] Arturo Cordero MD [facility] DR HEMATOLOGY [place] [address] Scheduled Procedures Name Priority Associated Diagnoses Date/Ti me EGD, UPPER GI ENDOSCOPY (WRVU 2.09) Irritable bowel syndrome with constipation 08/29/2024 1:00 PM EST COLONOSCOPY, DIAGNOSTIC (WRVU 3.26) Irritable bowel syndrome with constipation 08/29/2024 1:00 PM EST documented as of this encounter Visit Diagnoses Not on filedocumented in this encounter Care Teams Fitness Floor Attendant Relationship Specialty Start Date End Date Daryn Garrett MD [facility] [place] [address] PCP - General 04/10/24 documented as of this encounter
--- OUTSIDE RECORDS SUMMARY | 2024-08-20 15:49 | XMS_ITS | Encounter Summary ---
Author Organization [facility] [place] [address] Care Team Providers Care Processing Archivist Name Role Phone Daryn Garrett MD Primary Care Provider Encounter Details Date Type Department Care Team (Late st Contact Info) Description 07/17/2024 Telephone Internal Medicine at [facility] [address] [place] [phone] Sharona Kitchen Social History Tobacco Use Types Packs/Day Years [...] encounter Miscellaneous Notes * Telephone Encounter - Sharona Kitchen - 07/17/2024 4:21 PM EST LVM and mydeSilicon message for patient to please call back and schedule DM follow up with Julia Low Can be scheduled by [facility] Department - [facility] family med Provider - Julia Low Appt type - EDU Appt notes - DM follow up documented in this encounter Plan of Treatment Upcoming Encounters Date Type Department Care Team (Latest Contact Info) Description 08/29/2024 1:00 PM EST Hospital Encounter [place] [address] Roland Gooden MD [facility] [place] [address] 08/29/2024 1:00 PM EST - 08/29/2024 2:00 PM EST Surgery [place] [address] Roland Gooden MD [facility] [place] [address] EGD, UPPER GI ENDOSCOPY (WRVU 2.09) 10/02/2024 1:00 PM EDT Office Visit Ophthalmology at [place] [phone] Juanpablo Hernandez MD [facility] [place] [address] 10/21/2024 9:30 AM EDT Office Visit Internal Medicine at [address] [place] [phone] Daryn Garrett MD [facility] [place] [address] 01/30/2025 1:30 PM EDT Laboratory Appointment Lab at [facility] Hematology Oncology [address] [place], [place] [phone] 01/30/2025 3:[address] Scan at [place] [phone] Arturo Cordero MD [facility] DR HEMATOLOGY [place] [address] 01/30/2025 4:15 PM EDT Office Visit Hematology and Oncology at [place] [phone] Arturo Cordero MD [facility] DR [place] [address] Scheduled Procedures Name Priority Associated Diagnoses Date/Ti me EGD, UPPER GI ENDOSCOPY (WRVU 2.09) Irritable bowel syndrome with constipation 08/29/2024 1:00 PM EST COLONOSCOPY, DIAGNOSTIC (WRVU 3.26) Irritable bowel syndrome with constipation 08/29/2024 1:00 PM EST documented as of this encounter Visit Diagnoses Not on filedocumented in this encounter Care Teams Processing Archivist Relationship Specialty Start Date End Date Daryn Garrett MD [facility] DR LILI [place] [address] PCP - General 04/10/24 documented as of this encounter
--- OUTSIDE RECORDS SUMMARY | 2024-08-20 15:49 | XMS_ITS | Encounter Summary ---
Author Organization [facility] Address [facility] [place] [address] Care Team Providers Care Passenger Solicitor Name Role Phone Daryn Garrett MD Primary Care Provider [phone] Encounter Details Date Type Department Care Team (Late st Contact Info) Description 06/07/2024 Ancillary Procedure Radiology Library [place] [phone] Daryn Garrett MD [facility] DR LILI [place] [address] Social History Tobacco Use Types Packs/Day Years [...] 1:00 PM EST Hospital Encounter Gastroenterology at [place] [phone] Roland Gooedn MD [facility] [place] [address] 08/29/2024 1:00 PM EST - 08/29/2024 2:00 PM EST Surgery Gastroenterology at [place] [phone] Roland Gooden MD [facility] [place] [address] EGD, UPPER GI ENDOSCOPY (WRVU 2.09) 10/02/2024 1:00 PM EDT Office Visit Ophthalmology at [place] [phone] Juanpablo Hernandez MD [facility] OPHTHALMOLOGY [place] [phone] 10/21/2024 9:30 AM EDT Office Visit Internal Medicine at [facility] [address] [place] [address] Daryn Garrett MD [facility] DR LILI [place] [address] 01/30/2025 1:30 PM EDT Laboratory Appointment Lab at [facility] Hematology Oncology [address] [place] [phone] 01/30/2025 3:[address] [place] [phone] Arturo Cordero MD [facility] DR [place] [address] 01/30/2025 4:15 PM EDT Office Visit Hematology [place] [address] Arturo Cordero MD [facility] DR [place] [address] Scheduled Procedures Name Priority Associated Diagnoses Date/Ti me EGD, UPPER GI ENDOSCOPY (WRVU 2.09) Irritable bowel syndrome with constipation 08/29/2024 1:00 PM EST COLONOSCOPY, DIAGNOSTIC (WRVU 3.26) Irritable bowel syndrome with constipation 08/29/2024 1:00 PM EST documented as of this encounter Procedures Procedure Name Priority Date/Time Associated Diagnosis Comments FILM LIBRARY STORAGE ONLY CT ABDOMEN AND PELVIS Routine 06/07/2024 12:00 AM EST documented in this encounter Results * Film Library- Storage Only CT Abdomen & Pelvis (06/07/2024 12:00 AM EST) Narrative [facility] - 06/11/2024 3:00 PM EST This exam is auto-finalizing. It's purpose is for storage only. Daryn Garrett MD IM FILM LIBRARY ORD ERABLES [facility] [place], [place] documented in this encounter Visit Diagnoses Not on filedocumented in this encounter Care Teams Passenger Solicitor Relationship Specialty Start Date End Date Daryn Garrett MD [facility] DR LILI [place] [address] PCP - General 04/10/24 documented as of this encounter
--- OUTSIDE RECORDS SUMMARY | 2024-08-20 15:49 | XMS_ITS | Encounter Summary ---
[place] [address] Care Team Providers Care Dub Room Engineer Name Role Phone Daryn Garrett MD Primary Care Provider Encounter Details Date Type Department Care Team (Latest Contact Info) Description 06/21/2024 9:45 AM EST Laboratory Appointment Lab [address] [place] [phone] Type 2 diabetes mellitus with diabetic polyneuropathy, with long-term current use of insulin; Essential hypertension Social History Tobacco Use Types [...] 1:00 PM EST Hospital Encounter Gastroenterology at [address] Roland Gooden MD [facility] [place] [address] 08/29/2024 1:00 PM EST - 08/29/2024 2:00 PM EST Surgery Gastroenterology at [place] [phone] Roland Godoen MD [facility] [place] [address] EGD, UPPER GI ENDOSCOPY (WRVU 2.09) 10/02/2024 1:00 PM EDT Office Visit Ophthalmology at [place] [phone] Juanpablo Hernandez MD [facility] [place] [address] 10/21/2024 9:30 AM EDT Office Visit Internal Medicine at [facility] [address] [place] [phone] Daryn Garrett MD [facility] DR LILI [place] [address] 01/30/2025 1:30 PM EDT Laboratory Appointment Lab at [facility] Hematology Oncology [address] [place] [phone] 01/30/2025 3:[address] [place] [phone] Arturo Cordero MD [facility] DR [place] [address] 01/30/2025 4:15 PM EDT Office Visit Hematology [place] [address] Arturo Cordero MD [facility] DR [place] [address] Scheduled Procedures Name Priority Associated Diagnoses Date/Ti me EGD, UPPER GI ENDOSCOPY (WRVU 2.09) Irritable bowel syndrome with constipation 08/29/2024 1:00 PM EST COLONOSCOPY, DIAGNOSTIC (WRVU 3.26) Irritable bowel syndrome with constipation 08/29/2024 1:00 PM EST documented as of this encounter Procedures Procedure Name Priority Date/Time Associated Diagnosis Comments HEMOGLOBIN A1C Routine 06/21/2024 9:34 AM EST Type 2 diabetes mellitus with diabetic polyneuropathy, with long-term current use of insulin BASIC METABOLIC PANEL Routine 06/21/2024 9:34 AM EST Essential hypertension documented in this encounter Results * Basic Metabolic Panel Non-fasting (06/21/2024 9:34 AM EST) [facility] Glucose 177 65 - 199 mg/dL 06/21/2024 10:[address] [facility] Comment:Glucose Concentratio n >=200 mg/dL plus symptoms is consistent with Diabetes Mellitus. Blood Urea Nitrogen 8 8 - 18 mg/dL 06/21/2024 10:[address] [facility] Creatinine 0.79 0.70 - 1.20 mg/dL 06/21/2024 10:[address] [facility] Sodium 141 135 - 145 mMol/L 06/21/2024 10:[address] [facility] Potassium 3.9 3.5 - 5.0 mMol/L 06/21/2024 10:[address] [facility] Chloride 105 98 - 107 mMol/L 06/21/2024 10:[address] [facility] Carbon Dioxide 24 22 - 31 mMol/L 06/21/2024 10:[address] [facility] Anion Gap 12 5 - 15 mMol/L 06/21/2024 10:[address] [facility] Calcium 9.4 8.5 - 10.5 mg/dL 06/21/2024 10:[address] [facility] Est Glomerular Filtration Rate - Female 84 mL/min/1. 73 m?? 06/21/2024 10:[address] [facility] Comment: This patient's estimated GFR [...] Foundation Fasting Status No 06/21/2024 10:[address] [facility] Blood VENOUS BLOOD SPECIMEN / Unknown Venipuncture / Unknown 06/21/2024 9:34 AM EST 06/21/2024 9:55 AM EST Daryn Garrett MD CHEMISTRY ORDERABLES Performing Organization Address City/[facility]/ZIP Co de Phone Number [facility] [place] [address] * (ABNORMAL) Hemoglobin A1c (06/21/2024 9:34 AM EST) Hemoglobin A1c 7.3(H) 4.3 - 5.6 % 06/21/2024 10:19 AM EST [facility] Comment: Per ADA guidelines, [...] red blood cell turnover may not be software sales representative of glycemic control. Reference Interval: 4.3 - 5.6% 5.7 - 6.4%: Consistent with prediabetes >=6.5%: Consistent with diagnosis of diabetes mellitus Estimated Average Glucose 163 mg/dL 06/21/2024 10:19 AM EST [facility] Blood VENOUS BLOOD SPECIMEN / Unknown Venipuncture / Unknown 06/21/2024 9:34 AM EST 06/21/2024 9:55 AM EST Daryn Garrett MD CHEMISTRY ORDERABLES Performing Organization Address City/[facility]/ZIP Co de Phone Number [facility] [place] [address] documented in this encounter Visit Diagnoses Diagnosis Type 2 diabetes mellitus with diabetic polyneuropathy, with long-term current use of insulin Essential hypertension Unspecified essential hypertension Irritable bowel syndrome with constipation Irritable bowel syndrome documented in this encounter Care Teams Dub Room Engineer Relationship Specialty Start Date End Date Daryn Garrett MD [facility] DR LILI [place] [address] PCP - General 04/10/24 documented as of this encounter
--- OUTSIDE RECORDS SUMMARY | 2024-08-20 15:49 | XMS_ITS | Encounter Summary ---
Author Organization [facility] [place] [address] Care Team Providers Care Media Intern Name Role Phone Daryn Garrett MD Primary Care Provider Reason for Referral * Diagnostic Test (Routine) - Closed Specialty Diagnoses / Procedures Referred By Contac t Referred To Contact Gastroenterology Diagnoses Irritable bowel syndrome with constipation HBT - glucose - abd pain Procedures Breath Hydrogen Test Mert Ennis MD [facility] [place] [address] [facility] [address] [place] [address] Referral ID Status Reason Start Date Expiration Date V isits Requested Visits Authorized [id number] Closed Consult, Test & Treat 06/04/2024 06/04/2025 1 1 * Diagnostic Test (Routine) - Closed Specialty Diagnoses / Procedures Referred By Contac t Referred To Contact Gastroenterology Diagnoses Irritable bowel syndrome with constipation ARM for constipation Procedures High Definition Anal Manometry Mert Ennis MD [facility] [place] [address] [facility] [address] [place] [address] Referral ID Status Reason Start Date Expiration Date V isits Requested Visits Authorized [id number] Closed Consult, Test & Treat 06/04/2024 06/04/2025 1 1 Reason for Visit * Consultation (Urgent) - Authorized Specialty Diagnoses / Procedures Referred By Contchrissy t Referred To Contact Gastroenterology Diagnoses Chronic LLQ pain EVAL AND TREAT CAR Tonia Mcrae, MACHINE PLUG SHAPER [address] [place] [id number] [facility] [address] [place] [address] Referral ID Status Reason Start Date Expiration Date Visits Requested Visits Authorized [id number] Authorized Consult, Test & Treat PCP Updated and/or Approved 04/16/2024 04/16/2025 6 6 Encounter Details Date Type Department Care Team (Late st Contact Info) Description 06/04/2024 1:00 PM EST Office [place] [address] Mert Ennis MD [facility] [place] [place] [address] Irritable bowel syndrome with constipation Social History [...] documented in this encounter Progress Notes * Mert Ennis MD - 06/04/2024 1:00 PM EST [...] cognitive impairment She was seen previously by [facility] gastroenterology by Alejandra Pop APRN in 2021. [...] mL 3 Miscellaneous Medical Supply Misc by [facility].(Non-Drug; Combo Route) route. docusate sodium (Colace) 100 [...] or during use. 100 each 3 fluticasone eajxcxd-ksknvllryjtx-cdmdvhuqsg (Trelegy Ellipta) 200-62.5-25 mcg Inhale 1 puff into the lungs daily. Rinse mouth after use 1 each 11 fluticasone propionate (Flonase) 50 mcg/actuation [place], Suspension SPRAY 1 SPRAY IN EACH NOSTRIL TWO TIMES A DAY 48 mL 3 lamoTRIgine (LaMICtal) 150 mg tablet Take 150 mg by mouth Daily at Noon. Blood-Glucose Meter,Continuous (Dexcom G7 Acquisitions Librarian) Misc 1 Device by [facility].(Non- Drug; Combo Route) route continuous. Blood-Glucose Sensor (Dexcom G7 Sensor) Device 1 Device by Misc.(Non-Drug; Combo Route) route every10 days. 3 each 11 inhalational spacing device (Hesham Aerosol [place] Enhancer) Spacer 1 each by Misc.(Non-Drug; Combo [...] Arthritis, Asthma, Atherosclerosis of [place] coronary artery of [place] heart with angina pectoris (10/09/2007), CAD (coronary [...] Coronary angioplasty with stent; Lap, Partial Nephrectomy (29569) (Left, 06/28/2019); Excis Cornea Lesn (45125) (Left, 05/14/2020); Destr Corneal Lesn, Cryo, Photo, Therm ([id number]) (Left, 05/14/2020); PlaceAmniotic Membrane Ocular Surface;Single Layer Sutured (81601) (Left, 05/14/2020); laser surgery; andcryopexy (Left). Family [...] 05/30/2024 2:00 PM [facility] Healthy Day Score Incomplete Work Absenteeism 1 [...] exam today. # MASLD -previously seen by [facility] hepatology and had a reassuring FibroScan in [...] PCP for ongoing diabetes management.Consider referral to welder machine operator if refractory suboptimal glycemic control. We discussed [...] discussed the collaborative care model of the [facility] GI motility program. The patient should continue to work with their PCP +/- local dowel machine operator as the primary point(s) of contactfor urgent issues, medication refills and adjustments as needed for continuity of care purposes in between visits to our center. We encourage patients to set up a SPECIFIC follow- up with their PCP todiscuss our recommendations. The PCP may consider referral to a local dowel machine operator if the patient does not have a local dowel machine operator currently (if outside the [facility] area). Yearly or bi-yearly visits with a [...] documenting encounter after office visit: 2 minutes Mert Ennis MD [facility] [place] [phone] documented in this encounter Miscellaneous Notes * Addendum Note - Mert Ennis MD - 06/04/2024 1:00 PM ESTAddended by: MERT ENNIS on: 06/04/2024 02:04 PM Modules accepted: Orders documented in this encounter Plan of Treatment Upcoming Encounters Date Type Department Care Team (Latest Contact Info) Description 08/29/2024 1:00 PM EST Hospital Encounter [place] [address] Roland Gooden MD [facility] [place] [address] 08/29/2024 1:00 PM EST - 08/29/2024 2:00 PM EST [place] [phone] Roland Gooden MD [facility] [place] [address] EGD, UPPER GI ENDOSCOPY (WRVU 2.09) 10/02/2024 1:00 PM EDT Office [place] [address] Mert Hernandez MD [facility] [place] [address] 10/21/2024 9:30 AM EDT Office Visit Internal Medicine at [address] [phone] Daryn Garrett MD [facility] DR LILI WALKER [place] [address] 01/30/2025 1:30 PM EDT Laboratory Appointment Lab at [facility] Hematology Oncology [address] [place] [phone] 01/30/2025 3:[address] Scan at [facility] [place] [address] Arturo Cordero MD [facility] DR HEMATOLOGY [place] [address] 01/30/2025 4:15 PM EDT Office Visit Hematology and Oncology at [facility] [place] [address] Arturo Cordero MD [facility] DR HEMATOLOGY [place] [address] Scheduled Orders Name Type Priority Associated Diagnoses [...] - 199 mg/dL 06/04/2024 3:28 PM EST [facility] Comment:Glucose Concentratio n >=200 mg/dL plus symptoms is consistent with Diabetes Mellitus. Blood Urea Nitrogen 12 8 - 18 mg/dL 06/04/2024 3:28 PM EST [facility] Creatinine 0.86 0.70 - 1.20 mg/dL 06/04/2024 3:28 PM [facility] Sodium 142 135 - 145 mMol/L 06/04/2024 3:28 PM [facility] Potassium 4.1 3.5 - 5.0 mMol/L 06/04/2024 3:28 PM [facility] Chloride 105 98 - 107 mMol/L 06/04/2024 3:28 PM [facility] Carbon Dioxide 26 22 - 31 mMol/L 06/04/2024 3:28 PM [facility] Anion Gap 11 5 - 15 mMol/L 06/04/2024 3:28 PM [facility] Calcium 9.9 8.5 - 10.5 mg/dL 06/04/2024 3:28 PM [facility] Protein, Total 7.4 6.1 - 8.0 g/dL 06/04/2024 3:28 PM [facility] Albumin 4.4 3.2 - 5.2 g/dL 06/04/2024 3:28 PM [facility] Aspartate Aminotransferase 19 <=30 unit/L 06/04/2024 3:28 PM [facility] Alanine Aminotransferase 30 0 - 30 unit/L 06/04/2024 3:28 PM [facility] Alkaline Phosphatase 96 35 - 105 unit/L 06/04/2024 3:28 PM [facility] Bilirubin, Total 0.5 <=1.3 mg/dL 06/04/2024 3:28 PM [facility] Est Glomerular Filtration Rate - Female 76 mL/min/1. 73 m?? 06/04/2024 3:28 PM [facility] Comment: This patient's estimated GFR was [...] Fasting Status No 06/04/2024 3:28 PM EST [facility] Blood VENOUS BLOOD SPECIMEN / Unknown Venipuncture / Unknown 06/04/2024 2:37 PM EST 06/04/2024 2:37 PM EST Mert Ennis MD CHEMISTRY ORDERABLES Performing Organization Address City/[facility]/ZIP Co de Phone Number [facility] [place] [address] * Tissue Transglutaminase, IgA (06/04/2024 2:37 PM EST) TTG IgA Ab 0.4 <=10.0 U/mL 06/05/2024 11:40 AM EST [facility] Blood VENOUS BLOOD SPECIMEN / Unknown Venipuncture / Unknown 06/04/2024 2:37 PM EST 06/04/2024 2:37 PM EST Narrative [facility] - 06/05/2024 11:40 AM EST <7 U/mL: Negative 7-10 U/mL: Indeterminate >10 U/mL: Positive Mert Ennis MD IMMUNOLOGY ORDERABLE S Performing Organization Address City/[facility]/ZIP Co de Phone Number [facility] [place] [address] * IgG (06/04/2024 2:37 PM EST) IgG 923 700 - 1,600 mg/dL 06/04/2024 3:19 PM EST [facility] Blood VENOUS BLOOD SPECIMEN / Unknown Venipuncture / Unknown 06/04/2024 2:37 PM EST 06/04/2024 2:37 PM EST Mert Ennis MD CHEMISTRY ORDERABLES [facility] [place] [address] * IgA (06/04/2024 2:37 PM EST) IgA 262 70 - 400 mg/dL 06/04/2024 3:19 PM EST [facility] Blood VENOUS BLOOD SPECIMEN / Unknown Venipuncture / Unknown 06/04/2024 2:37 PM EST 06/04/2024 2:37 PM EST Mert Ennis MD CHEMISTRY ORDERABLES Performing Organization Address City/[facility]/ZIP Co de Phone Number [facility] [place] [address] * TSH [place] (06/04/2024 2:37 PM EST) Thyroid Stimulating Hormone 2.50 0.27 - 4.20 mcIU/mL 06/04/2024 3:28 PM EST [facility] Comment: Reference Interval (mcIU/mL): ?? Females: ? First Trimester: 0.23-3.88 ? Second Trimester: 0.22-3.90 ? Third Trimester: 0.44-4.66 Blood VENOUS BLOOD SPECIMEN / Unknown Venipuncture / Unknown 06/04/2024 2:37 PM EST 06/04/2024 2:37 PM EST Mert Ennis MD CHEMISTRY ORDERABLES [facility] [place] [address] documented in this encounter Visit Diagnoses Diagnosis Irritable bowel syndrome with constipation Irritable bowel syndrome Irritable bowel syndrome with constipation Irritable bowel syndrome documented in this encounter Care Teams Media Intern Relationship Specialty Start Date End Date Daryn Garrett MD [facility] DR LILI WALKER [place] [address] PCP - General 04/10/24 documented as of this encounter
--- OUTSIDE RECORDS SUMMARY | 2024-08-20 15:49 | XMS_ITS | Encounter Summary ---
Author Organization [facility] Address [facility] [place] [address] Care Team Providers Care Marketing Information Coordinator Name Role Phone Daryn Garrett MD Primary Care Provider Encounter Details Date Type Department Care Team (Late st Contact Info) Description 06/21/2024 8:30 AM EST Office Visit Internal Medicine at [facility] [address] [place] [phone] Daryn Garrett MD [facility] DR LILI W[place]ER [place] [address] Type 2 diabetes mellitus without long-term current [...] Sign Reading Time Taken Comments Blood Pressure 155/73 06/21/2024 8:12 AM EST Pulse 86 06/21/2024 8:12 AM EST Temperature - - Respiratory Rate 18 06/21/2024 8:12 AM EST Oxygen Saturation 100% 06/21/2024 8:12 AM EST Inhaled Oxygen Concentration - - Weight - - Height - - Body Mass Index - - documented in this encounter Patient Instructions * Patient Instructions* Daryn Garrett MD - 06/21/2024 8:30 AM EST Thanks for the visit. We looked at the CT result from your last visit You did blood work and I let you know the result I will see you in 4 months You got the flu and COVID vaccine documented in this encounter Progress Notes * Daryn Garrett MD - 06/21/2024 8:30 AM EST No chief complaint on file. Subjective: HPI: Alize Gramajo is a 63 y.o. female presenting to Internal Medicine at [facility] for a clinicvisit. Follow up Patient with CAD, DM, HTN, obesity, smoker, bipolar, melanoma, recently seen for diverticulitis at local ER (06/12), denies fever and chills, had appt with GI She was told in the ER that her diverticulitis was on the way out and she was not given a new course of antibiotics. We reviewed the GI note that is very detailed and the plan She is due for her seasonal vaccines She says her dexcom suggests an a1c of 6.9, she will have the lab today Medications 06/04/24 1328 Medication Sig Taking? tirzepatide (Mounjaro) 7.5 mg/0.5 mL Pen Injector INJECT 0.5ML UNDER THE SKIN ONCE A WEEK amoxicillin-clavulanate (Augmentin) 875-125 mg tablet Take 1 tablet by mouth 2 times daily. LORazepam (Ativan) 0.5 mg tablet Take 1 tablet by mouth every 8 hours. Indications: anxious nitroGLYcerin (Nitrostat) 0.[address] 1 tablet under the tongue See Admin Instructions. sucralfate (Carafate) 100 mg/mL Suspension Take 10 mLs by mouth 4 times daily. Miscellaneous Medical Supply Misc by [facility].(Non-Drug; Combo Route) route. docusate sodium (Colace) 100 mg capsule Take 1 capsule by mouth daily. polyethylene glycoL (Miralax) 17 gram oral powder packet Take 17 g by mouth daily. albuteroL 90 mcg/actuation inhaler (HFA) Inhale 2 puffs into the lungs every 4 hours as needed for Wheezing. USE WITH SPACER amLODIPine (Norvasc) 5 mg tablet Take 1 tablet by mouth daily. pantoprazole EC (Protonix) [address] tablet Take 1 tablet by mouth daily. losartan (Cozaar) 100 mg tablet Take 1 tablet by mouth daily. metFORMIN XR (Glucophage XR) 500 mg ER 24 hr tablet Take 2 tablets by mouth 2 times daily (with meals). metoprolol succinate XL (Toprol-XL) 25 mg ER 24 hr tablet Take 1 tablet by mouth daily. clopidogreL (Plavix) 75 mg tablet Take 1 tablet by mouth daily. simvastatin (Zocor) 10 mg tablet Take 1 tablet by mouth daily. tretinoin (RETIN-A) 0.025 % Cream Apply a pea size amount to the face nightly. As it can be irritating, start 2-3 times per week and slowly increase to nightly use. Can also mix with a bland moisturizer to help with irritation. BD Alcohol Swabs Pads, Medicated USE TOPICALLY ONCE DAILY insulin needles, disposable, 32 gauge x 5/32 Needle Inject 1 each subcutaneously daily. Indications: diabetes fluticasone fmizzck-nzhmjfgtvmfn-tknxwzjuzd (Trelegy Ellipta) 200-62.5-25 mcg Inhale 1 puff into the lungs daily. Rinse mouth after use fluticasone propionate (Flonase) 50 mcg/actuation [place], Suspension SPRAY 1 SPRAY IN EACH NOSTRIL TWO TIMES A DAY lamoTRIgine (LaMICtal) 150 mg tablet Take 150 mg by mouth Daily at Noon. Blood-Glucose Meter,Continuous (Dexcom G7 Grill Attendant) Misc 1 Device by [facility].(Non- Drug; Combo Route) route continuous. Blood-Glucose Sensor (Dexcom G7 Sensor) Device 1 Device by [facility].(Non-Drug; Combo Route) route every10 days. inhalational spacing device (Hesham Aerosol [place] Enhancer) Spacer 1 each by [facility].(Non-Drug; Combo Route) route as needed. lamoTRIgine (LaMICtal) 25 mg tablet Take 50 mg by mouth nightly. Indications: bipolar disorder in remission loratadine (Claritin) 10 mg Tablet Take 1 tablet by mouth daily. freestyle lite strips USE TO TEST THREE TIMES A DAY FreeStyle Lancets 28 gauge Misc 1 each by Other route 3 times daily. Indications: diabetes melatonin 10 mg Capsule Take 1 capsule by mouth nightly. busPIRone (Buspar) 30 mg Tablet Take 30 mg by mouth 2 times daily. FreeStyle Lite Meter Kit traZODone (Desyrel) 100 mg Tablet Take 1 tablet by mouth nightly. aspirin EC 81 mg Tablet, Delayed Release (E.C.) Take 81 mg by mouth daily. ROS: Review of Systems Objective: VS: BP 155/73 Pulse 86 Resp 18 SpO2 100% Physical Exam Vitals reviewed. Constitutional: Appearance: Normal appearance. Cardiovascular: Rate and Rhythm: Normal rate. Pulses: Normal pulses. Abdominal: General: Bowel sounds are normal. There is no distension. Palpations: Abdomen is soft. There is no mass. Tenderness: There is no abdominal tenderness. There is no guarding. Hernia: No hernia is present. Assessment and Plan: Diagnoses and all orders for this visit: Type 2 diabetes mellitus without long-term current use of insulin Other orders - Influenza (Afluria) Trivalent Vaccine, 3yrs+ Preservative Free - Covid-19 (Moderna Spikevax) Vaccine 12yrs+ ([id number]) She received her seasonal vaccines She will go to the lab after the visit We discussed her h/o diverticulitis and the risk of a futire infection (see also GI note) and how to distinguish between just intermittent pain and infection, and when to go to the ER for it and whennot. The CT scan also did not show pancreatitis I will inform her about the lab results and plan to see her in 4 months Patient Instructions Thanks for the visit. We looked at the CT result from your last visit You did blood work and I let you know the result I will see you in 4 months You got the flu and COVID vaccine FOLLOWUP: Return in about 4 months (around 10/20/2024) for med check. Next appointment with Daryn Garrett MD: Visit date not found Next appointment at Internal Medicine at [facility]: Visit date not found documented in this encounter Plan of Treatment Upcoming Encounters Date Type Department Care Team (Latest Contact Info) Description 08/29/2024 1:00 PM EST Hospital En[place] [address] Roland Gooden MD [facility] [address] 08/29/2024 1:00 PM EST - 08/29/2024 2:00 PM EST [place] [phone] Roland Gooden MD [facility] [place] [address] EGD, UPPER GI ENDOSCOPY (WRVU 2.09) 10/02/2024 1:00 PM EDT Office Visit Ophthalmology at [place] [phone] Juanpablo Hernandez MD [facility] [place] [address] 10/21/2024 9:30 AM EDT Office Visit Internal Medicine at [address] [phone] Daryn Garrett MD [facility] DR [place] [address] 01/30/2025 1:30 PM EDT Laboratory Appointment Lab at [facility] Hematology Oncology [address] [place], [place] [phone] 01/30/2025 3:[address] Scan at [place] [phone] Arturo Cordero MD [facility] [place] [address] 01/30/2025 4:15 PM EDT Office Visit Hematology and Oncology at [place] [phone] Arturo Cordero MD [facility] DR HEMATOLOGY [place] [address] Scheduled Procedures Name Priority Associated Diagnoses Date/Ti [...] syndrome documented in this encounter Care Teams Marketing Information Coordinator Relationship Specialty Start Date End Date Daryn Garrett MD [facility] DR [place] [address] PCP - General 04/10/24 documented as of this encounter
--- OUTSIDE RECORDS SUMMARY | 2024-08-20 15:49 | XMS_ITS | Encounter Summary ---
Author Organization [facility] Address [facility] [place] [address] Care Team Providers Care Administrative Project Coordinator Name Role Phone Daryn Garrett MD [...] 1:00 PM EST Hospital En[place] [address] Roland Gooden MD [facility] [place] [address] 08/29/2024 1:00 PM EST - 08/29/2024 2:00 PM EST Surgery [place] [phone] Roland Gooden MD [facility] [place] [address] EGD, UPPER GI ENDOSCOPY (WRVU 2.09) 10/02/2024 1:00 PM EDT Office [place] [phone] Juanpablo Hernandez MD [facility] [place] [address] 10/21/2024 9:30 AM EDT Office Visit Internal Medicine at [facility] [address] [place] [phone] Daryn Garrett MD [facility] [place] [address] 01/30/2025 1:30 PM EDT Laboratory Appointment Lab at [facility] Hematology Oncology [address] [place], [place] [phone] 01/30/2025 3:[address] Scan at [place] [phone] Arturo Cordero MD [facility] [place] [address] 01/30/2025 4:15 PM EDT Office Visit Hematology [place] [phone] Arturo Cordero MD [facility] [place] [address] Scheduled Procedures Name Priority Associated Diagnoses Date/Ti me EGD, UPPER GI ENDOSCOPY (WRVU 2.09) Irritable bowel syndrome with constipation 08/29/2024 1:00 PM EST COLONOSCOPY, DIAGNOSTIC (WRVU 3.26) Irritable bowel syndrome with constipation 08/29/2024 1:00 PM EST documented as of this encounter Visit Diagnoses Not on filedocumented in this encounter Care Teams Administrative Project Coordinator Relationship Specialty Start Date End Date Daryn Garrett MD [facility] [place] [address] PCP - General 04/10/24 documented as of this encounter
--- OUTSIDE RECORDS SUMMARY | 2024-08-20 15:49 | XMS_ITS | Encounter Summary ---
Author Organization [facility] Address [facility] [place] [address] Care Team Providers Care Swift Tender Name Role Phone Daryn Garrett MD Primary Care Provider [phone] Encounter Details Date Type Department Care Team (Latest Contact Info) Description 06/24/2024 Travel Social History Tobacco Use Types Packs/Day [...] 1:00 PM EST Hospital Encounter [place] [address] Roland Gooden MD [facility] [place] [address] 08/29/2024 1:00 PM EST - 08/29/2024 2:00 PM EST [place] [phone] Roland Gooden MD [facility] [place] [address] EGD, UPPER GI ENDOSCOPY (WRVU 2.09) 10/02/2024 1:00 PM EDT Office [place] [phone] Juanpablo Hernandez MD [facility] [place] [address] 10/21/2024 9:30 AM EDT Office Visit Internal Medicine at [facility] [address] [place] [phone] Daryn Garrett MD [facility] [place] [address] 01/30/2025 1:30 PM EDT Laboratory Appointment Lab at [facility] Hematology Oncology [address] [place], [place] [phone] 01/30/2025 3:[address] Scan at [place] [phone] Arturo Cordero MD [facility] [place] [address] 01/30/2025 4:15 PM EDT Office Visit Hematology [place] [phone] Arturo Cordero MD [facility] DR [place] [address] Scheduled Procedures Name Priority Associated Diagnoses Date/Ti me EGD, UPPER GI ENDOSCOPY (WRVU 2.09) Irritable bowel syndrome with constipation 08/29/2024 1:00 PM EST COLONOSCOPY, DIAGNOSTIC (WRVU 3.26) Irritable bowel syndrome with constipation 08/29/2024 1:00 PM EST documented as of this encounter Visit Diagnoses Not on filedocumented in this encounter Care Teams Swift Tender Relationship Specialty Start Date End Date Daryn Garrett MD [facility] [place] [address] PCP - General 04/10/24 documented as of this encounter
--- OUTSIDE RECORDS SUMMARY | 2024-08-20 15:49 | XMS_ITS | Encounter Summary ---
Author Organization [facility] [place] [address] Care Team Providers Care Public Administration Professor Name Role Phone Daryn Garrett MD Primary Care Provider Reason for Visit * Reason Onset Date Comments Prior Authorization 07/31/2024 tirzepatide (Mounjaro) 5 mg/0.5 mL Pen Injector Encounter Details Date Type Department Care Team (Late st Contact Info) Description 07/31/2024 Telephone Internal Medicine at [facility] [address] [place] [address] Zhang Prieto CMA Prior Authorization (tirzepatide (Mounjaro) 5 mg/0.5 mL Pen Injector) Social History Tobacco Use Types Packs/Day Years [...] Notes * Telephone Encounter - Zhang Prieto CMA - 08/01/2024 8:23 AM EST Submitted Date: Submitted Date: 07/31/24 Next Review Date: Next Review Date: 07/31/2025 PA Outcome: PA Approval Medication Prior Authorization Approval Approved: Mounjaro 5 mg/0.5 Start Date: 07/31/2025 End Date: 07/31/2025 Case/Reference #: [id number] Approval Letter will be scanned into media once received. * Telephone Encounter - Zhang Prieto MA - 07/31/2024 2:35 PM EST RAEGAN Submitted Submitted Date: Date Submitted: Medication Prior Authorization Patient: Alize Gramajo Patient : 1960 Insurance Company: [employer] Rx Sent via: Devtoo Anderson: [id number], 06/21/2024 office notes attached Physician: Daryn Garrett MD Medication Requested: tirzepatide (Mounjaro) 5 mg/0.5 mL Pen Injector Frequency/Sig: Inject 5 mg subcutaneously once a week. 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]; Mixed hyperlipidemia [E78.2] Prior medications trialed in this patient: Medication: dulaglutide (Trulicity) Approx Dates: 04/2023-08/03/2023 Outcome/Adverse Reactions: Inadequate response Medication: Insulin U-100 Approx Dates: 09/2022-03/2024 Outcome/Adverse Reactions: Inadequate response Medication: Metformin Approx Dates: 02/2022- Outcome/Adverse Reactions: Inadequate response Medication: Semaglutide Approx Dates: 10/2021-10/2023 Outcome/Adverse Reactions:Side effects Additional Notes: documented in this encounter Plan of Treatment Upcoming Encounters Date Type Department Care Team (Latest Contact Info) Description 08/29/2024 1:00 PM EST Hospital Encounter [place] [address] Roland Gooden MD [facility] [place] [address] 08/29/2024 1:00 PM EST - 08/29/2024 2:00 PM EST Surgery [place] [phone] Roland Gooden MD [facility] [place] [address] EGD, UPPER GI ENDOSCOPY (WRVU 2.09) 10/02/2024 1:00 PM EDT Office [place] [phone] Juanpablo Hernandez MD [facility] [place] [address] 10/21/2024 9:30 AM EDT Office Visit Internal Medicine at [address] [phone] Daryn Garrett MD [facility] [place] [address] 01/30/2025 1:30 PM EDT Laboratory Appointment Lab at [facility] Hematology Oncology [address] [place] [phone] 01/30/2025 3:[address] Scan at [place] [phone] Arturo Cordero MD [facility] HEMATOLOGY AND [place] [address] 01/30/2025 4:15 PM EDT Office Visit Hematology [place] [phone] Arturo Cordero MD [facility] DR HEMATOLOGY [place] [address] Scheduled Procedures Name Priority Associated Diagnoses Date/Ti me EGD, UPPER GI ENDOSCOPY (WRVU 2.09) Irritable bowel syndrome with constipation 08/29/2024 1:00 PM EST COLONOSCOPY, DIAGNOSTIC (WRVU 3.26) Irritable bowel syndrome with constipation 08/29/2024 1:00 PM EST documented as of this encounter Visit Diagnoses Not on filedocumented in this encounter Care Teams Public Administration Professor Relationship Specialty Start Date End Date Daryn Garrett MD [facility] [address] - [place] [address] PCP - General 04/10/24 documented as of this encounter
--- OUTSIDE RECORDS SUMMARY | 2024-08-20 15:49 | XMS_ITS | Encounter Summary ---
Author Organization [facility] Address [facility] [place] [address] Care Team Providers Care Internet Marketer Name Role Phone Daryn Garrett MD Primary [...] 1:00 PM EST Hospital Encounter [place] [address] Roland Gooden MD [facility] [place] [address] 08/29/2024 1:00 PM EST - 08/29/2024 2:00 PM EST Surgery [place] [phone] Roland Gooden MD [facility] [place] [address] EGD, UPPER GI ENDOSCOPY (WRVU 2.09) 10/02/2024 1:00 PM EDT Office [place] [phone] Juanpablo Hernandez MD [facility] [place] [address] 10/21/2024 9:30 AM EDT Office Visit Internal Medicine at [facility] [address] [place] [phone] Daryn Garrett MD [facility] [place] [address] 01/30/2025 1:30 PM EDT Laboratory Appointment Lab at [facility] Hematology Oncology [address] [place], [place] [phone] 01/30/2025 3:[address] Scan at [place] [phone] Arturo Cordero MD [facility] [place] [address] 01/30/2025 4:15 PM EDT Office Visit Hematology [place] [phone] Arturo Cordero MD [facility] DR [place] [address] Scheduled Procedures Name Priority Associated Diagnoses Date/Ti me EGD, UPPER GI ENDOSCOPY (WRVU 2.09) Irritable bowel syndrome with constipation 08/29/2024 1:00 PM EST COLONOSCOPY, DIAGNOSTIC (WRVU 3.26) Irritable bowel syndrome with constipation 08/29/2024 1:00 PM EST documented as of this encounter Visit Diagnoses Not on filedocumented in this encounter Care Teams Internet Marketer Relationship Specialty Start Date End Date Daryn Garrett MD [facility] [place] [address] PCP - General 04/10/24 documented as of this encounter
--- OUTSIDE RECORDS SUMMARY | 2024-08-20 15:49 | XMS_ITS | Encounter Summary ---
Author Organization [facility] Address [facility] [place] [address] Care Team Providers Care Supervisor Customer Services Name Role Phone Daryn Garrett MD Primary Care Provider Reason for Visit * Reason Comments Medication Refill Encounter Details Date Type Department Care Team (Late st Contact Info) Description 06/17/2024 Refill Internal Medicine at [facility] [address] [place] [address] Daryn Garrett MD [facility] [address]IL[address] WALK[address] - [place] [address] Social History Tobacco Use Types Packs/Day Years [...] encounter Miscellaneous Notes * Telephone Encounter - Cynthia Cid I, GIDEON - 06/18/2024 2:03 PM EST Prescription Renewal Request Name: Alize Chelsea Avila : 1960 Prescription(s) Requested: Requested Prescriptions Pending Prescriptions Disp Refills Mounjaro 7.5 mg/0.5 mL Pen Injector [Pharmacy Med Name: MOUNJARO 7.5MG/0.5ML INJ (4 PENS)] 2 mL Sig: INJECT 0.5ML UNDER THE SKIN ONCE A WEEK Date of Encounter last in This Dept (If need an appointment send to secretaries to schedule): 05/27/24 Next Encounter in This Dept: 06/21/2024 Date of Last Refill (for each medication): tirzepatide (Mounjaro) 7.5 mg/0.5 mL Pen Injector Inject 7.5 mg subcutaneously once a week. Dispense: 3 mL, Refills: 0 ordered 05/28/2024 Medication category requirements (labs etc): Lab Results Component Value Date HA1C 7.7 (H) 03/20/2024 Status of request: Pended Allergies Allergen Reactions Codeine Phosphate Nausea And Vomiting Erythromycin Base Nausea Only Azithromycin Ibuprofen Stomach upset Lisinopril cough Nsaids (Non-Steroidal Anti-Inflammatory Drug) Nausea And Vomiting Cynthia Cid LPN 06/18/24 2:03 PM documented in this encounter Plan of Treatment Upcoming Encounters Date Type Department Care Team (Latest Contact Info) Description 08/29/2024 1:00 PM EST Hospital En[place] [phone] Roland Gooden MD [facility] [place] [address] 08/29/2024 1:00 PM EST - 08/29/2024 2:00 PM EST [place] [phone] Roland Gooden MD [facility] [address] EGD, UPPER GI ENDOSCOPY (WRVU 2.09) 10/02/2024 1:00 PM EDT Office [place] [phone] Juanpablo Hernandez MD [facility] [place] [address] 10/21/2024 9:30 AM EDT Office Visit Internal Medicine at [address] [phone] Daryn Garrett MD [facility] DR LILI WALKER - [place] [address] 01/30/2025 1:30 PM EDT Laboratory Appointment Lab at [facility] Hematology Oncology [address] [place] [phone] 01/30/2025 3:[address] [place] [phone] Arturo Cordero MD [facility] HEMATOLOGY [place] [address] 01/30/2025 4:15 PM EDT Office Visit Hematology [place] [address] Arturo Cordero MD [facility] HEMATOLOGY [place] [address] Scheduled Procedures Name Priority Associated Diagnoses Date/Ti me EGD, UPPER GI ENDOSCOPY (WRVU 2.09) Irritable bowel syndrome with constipation 08/29/2024 1:00 PM EST COLONOSCOPY, DIAGNOSTIC (WRVU 3.26) Irritable bowel syndrome with constipation 08/29/2024 1:00 PM EST documented as of this encounter Visit Diagnoses Not on filedocumented in this encounter Care Teams Supervisor Customer Services Relationship Specialty Start Date End Date Daryn Garrett MD [facility] [address] - [place] [address] PCP - General 04/10/24 documented as of this encounter
--- OUTSIDE RECORDS SUMMARY | 2024-08-20 15:49 | XMS_ITS | Encounter Summary ---
[place] [address] Care Team Providers Care Manager Marketing Communications Name Role Phone Daryn Garrett MD Primary Care Provider Encounter Details Date Type Department Care Team (Latest Contact Info) Description 06/04/2024 4:30 PM EST Laboratory Appointment Lab [address] [place] [phone] Irritable bowel syndrome with constipation Social History [...] 1:00 PM EST Hospital Encounter Gastroenterology at [place] [phone] Roland Gooden MD [facility] [place] [address] 08/29/2024 1:00 PM EST - 08/29/2024 2:00 PM EST Surgery Gastroenterology at [place] [phone] Roland Gooden MD [facility] [place] [address] EGD, UPPER GI ENDOSCOPY (WRVU 2.09) 10/02/2024 1:00 PM EDT Office Visit Ophthalmology at [place] [phone] Juanpablo Hernandez MD [facility] [place] [address] 10/21/2024 9:30 AM EDT Office Visit Internal Medicine at [facility] [address] [place] [phone] Daryn Garrett MD [facility] DR [address]IL[address] [place] [address] 01/30/2025 1:30 PM EDT Laboratory Appointment Lab at [facility] Hematology Oncology [address] [place] [phone] 01/30/2025 3:[address] [place] [phone] Arturo Cordero MD [facility] [place] [address] 01/30/2025 4:15 PM EDT Office Visit Hematology [place] [address] Arturo Cordero MD [facility] [place] [address] Scheduled Procedures Name Priority Associated Diagnoses Date/Ti [...] documented in this encounter Results * TSH [place] (06/04/2024 2:37 PM EST) Thyroid Stimulating Hormone 2.50 0.27 - 4.20 mcIU/mL 06/04/2024 3:28 PM EST [facility] Comment: Reference Interval (mcIU/mL): ?? Females: ? First Trimester: 0.23-3.88 ? Second Trimester: 0.22-3.90 ? Third Trimester: 0.44-4.66 Blood VENOUS BLOOD SPECIMEN / Unknown Venipuncture / Unknown 06/04/2024 2:37 PM EST 06/04/2024 2:37 PM EST Juanpablo Tran MD CHEMISTRY ORDERABLES Performing Organization Address City/[facility]/ZIP Co de Phone Number [facility] [place] [address] * IgA (06/04/2024 2:37 PM EST) IgA 262 70 - 400 mg/dL 06/04/2024 3:19 PM EST [facility] Blood VENOUS BLOOD SPECIMEN / Unknown Venipuncture / Unknown 06/04/2024 2:37 PM EST 06/04/2024 2:37 PM EST Juanpablo Tran MD CHEMISTRY ORDERABLES [facility] [place] [address] * IgG (06/04/2024 2:37 PM EST) IgG 923 700 - 1,600 mg/dL 06/04/2024 3:19 PM EST [facility] Blood VENOUS BLOOD SPECIMEN / Unknown Venipuncture / Unknown 06/04/2024 2:37 PM EST 06/04/2024 2:37 PM EST Juanpablo Tran MD CHEMISTRY ORDERABLES [facility] [place] [address] * Tissue Transglutaminase, IgA (06/04/2024 2:37 PM EST) Pathologist [facility] TTG IgA Ab 0.4 <=10.0 U/mL 06/05/2024 11:40 AM EST [facility] Blood VENOUS BLOOD SPECIMEN / Unknown Venipuncture / Unknown 06/04/2024 2:37 PM EST 06/04/2024 2:37 PM EST Narrative [facility] - 06/05/2024 11:40 AM EST <7 U/mL: Negative 7-10 U/mL: Indeterminate >10 U/mL: Positive Juanpablo Tran MD IMMUNOLOGY ORDERABLE S Performing Organization Address City/[facility]/ZIP Co de Phone Number [facility] [place] [address] * Comprehensive metabolic panel Non-fasting (06/04/2024 2:37 PM EST) [facility] Glucose 167 65 - 199 mg/dL 06/04/2024 3:28 PM EST [facility] Comment:Glucose Concentratio n >=200 mg/dL plus symptoms is consistent with Diabetes Mellitus. Blood Urea Nitrogen 12 8 - 18 mg/dL 06/04/2024 3:28 PM EST [facility] Creatinine 0.86 0.70 - 1.20 mg/dL 06/04/2024 3:28 PM EST [facility] Sodium 142 135 - 145 mMol/L 06/04/2024 3:28 PM EST [facility] Potassium 4.1 3.5 - 5.0 mMol/L 06/04/2024 3:28 PM EST [facility] Chloride 105 98 - 107 mMol/L 06/04/2024 3:28 PM EST [facility] Carbon Dioxide 26 22 - 31 mMol/L 06/04/2024 3:28 PM [facility] Anion Gap 11 5 - 15 mMol/L 06/04/2024 3:28 PM [facility] Calcium 9.9 8.5 - 10.5 mg/dL 06/04/2024 3:28 PM [facility] Protein, Total 7.4 6.1 - 8.0 g/dL 06/04/2024 3:28 PM [facility] Albumin 4.4 3.2 - 5.2 g/dL 06/04/2024 3:28 PM [facility] Aspartate Aminotransferase 19 <=30 unit/L 06/04/2024 3:28 PM [facility] Alanine Aminotransferase 30 0 - 30 unit/L 06/04/2024 3:28 PM [facility] Alkaline Phosphatase 96 35 - 105 unit/L 06/04/2024 3:28 PM [facility] Bilirubin, Total 0.5 <=1.3 mg/dL 06/04/2024 3:28 PM [facility] Est Glomerular Filtration Rate - Female 76 mL/min/1. 73 m?? 06/04/2024 3:28 PM [facility] Comment: This patient's [...] Foundation Fasting Status No 06/04/2024 3:28 PM [facility] Blood VENOUS BLOOD SPECIMEN / Unknown Venipuncture / Unknown 06/04/2024 2:37 PM EST 06/04/2024 2:37 PM EST Juanpablo Tran MD CHEMISTRY ORDERABLES [facility] [place] [address] documented in this encounter Visit Diagnoses Diagnosis Irritable bowel syndrome with constipation Irritable bowel syndrome Irritable bowel syndrome with constipation Irritable bowel syndrome documented in this encounter Care Teams Manager Marketing Communications Relationship Specialty Start Date End Date Daryn Garrett MD [facility] DR [address]IL[address]ALK[address] [place] [address] PCP - General 04/10/24 documented as of this encounter
--- OUTSIDE RECORDS SUMMARY | 2024-08-20 15:49 | XMS_ITS | Encounter Summary ---
Author Organization [facility] Address [facility] [place] [address] Care Team Providers Care Pure Culture Operator Name Role Phone Daryn Garrett MD [...] 1:00 PM EST Hospital Encounter [place] [phone] Roland Gooden MD [facility] [place] [address] 08/29/2024 1:00 PM EST - 08/29/2024 2:00 PM EST [place] [phone] Roland Gooden MD [facility] [place] [address] EGD, UPPER GI ENDOSCOPY (WRVU 2.09) 10/02/2024 1:00 PM EDT Office [place] [phone] Juanpablo Hernandez MD [facility] [place] [address] 10/21/2024 9:30 AM EDT Office Visit Internal Medicine at [facility] [address] [place] [phone] Daryn Garrett MD [facility] [place] [address] 01/30/2025 1:30 PM EDT Laboratory Appointment Lab at [facility] Hematology Oncology [address] [place], [place] [phone] 01/30/2025 3:[address] Scan at [place] [phone] Arturo Cordero MD [facility] [place]AT[place] [address] 01/30/2025 4:15 PM EDT Office Visit Hematology [place] [phone] Arturo Cordero MD [facility] DR HEMATOLOGY [place] [address] Scheduled Procedures Name Priority Associated Diagnoses Date/Ti me EGD, UPPER GI ENDOSCOPY (WRVU 2.09) Irritable bowel syndrome with constipation 08/29/2024 1:00 PM EST COLONOSCOPY, DIAGNOSTIC (WRVU 3.26) Irritable bowel syndrome with constipation 08/29/2024 1:00 PM EST documented as of this encounter Visit Diagnoses Not on filedocumented in this encounter Care Teams Pure Culture Operator Relationship Specialty Start Date End Date Daryn Garrett MD [facility] [place] [address] PCP - General 04/10/24 documented as of this encounter
--- OUTSIDE RECORDS SUMMARY | 2024-08-20 15:49 | XMS_ITS | Encounter Summary ---
Author Organization [facility] Address [facility] [place] [address] Care Team Providers Care Brassiere Cup Mold Cutter Name Role Phone Daryn Garrett MD Primary Care Provider Reason for Visit * Reason Onset Date Comments Medication Refill 06/17/2024 Encounter Details Date Type Department Care Team (Late st Contact Info) Description 06/17/2024 Refill Internal Medicine at [facility] [address] [place] [phone] Daryn Garrett MD [facility] DR LILI WALKER [place] [address] Social History Tobacco Use Types Packs/Day Years [...] Notes * Telephone Encounter - Cynthia Cid LPN - 06/18/2024 2:06 PM EST Prescription Renewal Request Name: Alize Gramajo : 1960 Prescription(s) Requested: Requested Prescriptions Pending Prescriptions Disp Refills tirzepatide (Mounjaro) 7.5 mg/0.5 mL Pen Injector 3 mL 0 Sig: Inject 7.5 mg subcutaneously once a week. Date of Encounter last in This Dept (If need an appointment send to secretaries to schedule): 05/27/24 Next Encounter in This Dept: 06/21/2024 Status of request: Refused Allergies Allergen Reactions Codeine Phosphate Nausea And Vomiting Erythromycin Base Nausea Only Azithromycin Ibuprofen Stomach upset Lisinopril cough Nsaids (Non-Steroidal Anti-Inflammatory Drug) Nausea And Vomiting Cynthia Cid LPN 06/18/24 2:06 PM documented in this encounter Plan of Treatment Upcoming Encounters Date Type Department Care Team (Latest Contact Info) Description 08/29/2024 1:00 PM EST Hospital Encounter Gastroenterology at [place] [phone] Roland Gooden MD [facility] [place] [address] 08/29/2024 1:00 PM EST - 08/29/2024 2:00 PM EST [place] [phone] Roland Gooden MD [facility] [place] [address] EGD, UPPER GI ENDOSCOPY (WRVU 2.09) 10/02/2024 1:00 PM EDT Office [place] [phone] Juanpablo Hernandez MD [facility] [place] [address] 10/21/2024 9:30 AM EDT Office Visit Internal Medicine at [address] [phone] Daryn Garrett MD [facility] DR LILI WALKER [place] [address] 01/30/2025 1:30 PM EDT Laboratory Appointment Lab at [facility] [place] On[place] [address] [place] [phone] 01/30/2025 3:[address] [place] [phone] Arturo Cordero MD [facility] HEMATOLOGY [place] [address] 01/30/2025 4:15 PM EDT Office Visit Hematology [place] [address] Arturo Cordero MD [facility] HEMATOLOGY [place] [address] Scheduled Procedures Name Priority Associated Diagnoses Date/Ti me EGD, UPPER GI ENDOSCOPY (WRVU 2.09) Irritable bowel syndrome with constipation 08/29/2024 1:00 PM EST COLONOSCOPY, DIAGNOSTIC (WRVU 3.26) Irritable bowel syndrome with constipation 08/29/2024 1:00 PM EST documented as of this encounter Visit Diagnoses Not on filedocumented in this encounter Care Teams Brassiere Cup Mold Cutter Relationship Specialty Start Date End Date Daryn Garrett MD [facility] DR LILI WALKER [place] [address] PCP - General 04/10/24 documented as of this encounter
--- OUTSIDE RECORDS SUMMARY | 2024-08-20 15:49 | XMS_ITS | Encounter Summary ---
[place] [address] Care Team Providers Care Concert Promoter Name Role Phone Daryn Garrett MD Primary Care Provider Reason for Referral * Consultation (Routine) - Authorized Specialty Diagnoses / Procedures Referred By Gonzalez kumari Referred To Contact Cardiology Diagnoses Bradycardia Bradycardia likely vasovagal, no urgent f/u recommended although pt should re-establish care with cardiology Tonia Mcrae, KATHIA [address] [place] [address] [facility] [address] [place] [phone] Referral ID Status Reason Start Date Expiration Date Visits Requested Visits Authorized [id number] Authorized Consult, Test & Treat PCP Updated and/or Approved 04/16/2024 04/16/2025 6 6 Encounter Details Date Type Department Care Team (Late st Contact Info) Description 05/10/2024 Transcribe Orders eDH Incoming Referrals [phone] Tonia Mcrae, KATHIA [address] [place], [place] [phone] Bradycardia Social History Tobacco Use Types Packs/Day [...] 1:00 PM EST Hospital [place] [address] Roland Gooden MD [facility] [address] 08/29/2024 1:00 PM EST - 08/29/2024 2:00 PM EST Surgery Gastroenterology at [address] Roland Gooden MD [facility] [place] [address] EGD, UPPER GI ENDOSCOPY (WRVU 2.09) 10/02/2024 1:00 PM EDT Office Visit Ophthalmology at [place] [phone] Juanpablo Hernandez MD [facility] [place] [address] 10/21/2024 9:30 AM EDT Office Visit Internal Medicine at [address] [phone] Daryn Garrett MD [facility] [place] [address] 01/30/2025 1:30 PM EDT Laboratory Appointment Lab at [place] Hematology Oncology [address] [place], [place] [phone] 01/30/2025 3:[address] Scan at [place] [phone] Arturo Cordero MD [facility] [place]AT[place] [address] 01/30/2025 4:15 PM EDT Office Visit Hematology and Oncology at [place] [phone] Arturo Cordero MD [facility] HEMATOLOGY [place] [address] Scheduled Procedures Name Priority Associated Diagnoses Date/Ti me EGD, UPPER GI ENDOSCOPY (WRVU 2.09) Irritable bowel syndrome with constipation 08/29/2024 1:00 PM EST COLONOSCOPY, DIAGNOSTIC (WRVU 3.26) Irritable bowel syndrome with constipation 08/29/2024 1:00 PM EST Scheduled Referrals Name Type Priority Associated Diagnoses Order Schedule Referral to Cardiology Outpatient Referral Urgent Bradycardia Ordered: 05/10/2024 documented as of this encounter Visit Diagnoses Diagnosis Bradycardia Other specified cardiac dysrhythmias Irritable bowel syndrome with constipation Irritable bowel syndrome documented in this encounter Care Teams Concert Promoter Relationship Specialty Start Date End Date Daryn Garrett MD [facility] DR LILI [place] [address] PCP - General 04/10/24 documented as of this encounter
--- OUTSIDE RECORDS SUMMARY | 2024-08-20 15:49 | XMS_ITS | Encounter Summary ---
[place] [address] Care Team Providers Care Town Administrator Name Role Phone Daryn Garrett MD Primary Care Provider Encounter Details Date Type Department Care Team (Latest Contact Info) Description 05/01/2024 11:03 AM EDT - 05/01/2024 11:59 PM EDT Hospital Encounter Mammography/[place] [address] Rodney Padilla MD [address] [place] [address] [place] [address] Encounter for screening mammogram for breast cancer [...] 3 04/09/2024 Miscellaneous Medical Supply Misc by [facility]Non-Drug; Combo Route) route. docusate sodium (Colace) 100 [...] subcutaneously daily. Indications: diabetes 100 each 11/02/2023 fluticasone furoate-umeclidinium- vilanterol (Trelegy Ellipta) 200-62.5-25 mcgIndications:Chroni c obstructive pulmonary disease, unspecified COPD type Inhale 1 puff into the lungs daily. Rinse mouth after use 1 each 10/24/2023 fluticasone propionate (Flonase) 50 mcg/actuation [place], Suspension SPRAY 1 SPRAY IN EACH NOSTRIL TWO TIMES A DAY 48 mL 3 09/28/2023 Blood-Glucose Meter,Continuous (Dexcom G7 Butcher'S Assistant) MiscIndications:Type 2 diabetes mellitus with hyperglycemia, without long-term current use of insulin 1 Device by [facility]Non-Drug; Combo Route) route continuous. 08/18/2023 Blood-Glucose Sensor (Dexcom G7 Sensor) DeviceIndications:Typ e 2 diabetes mellitus with hyperglycemia, without long-term current use of insulin 1 Device by [facility]Non-Drug; Combo Route) route every 10 days. 3 each 11 08/18/2023 inhalational spacing device (Hesham Aerosol [place] Enhancer) SpacerIndications:Chr onic obstructive pulmonary disease, unspecified COPD type 1 each by [facility]Non-Drug; Combo Route) route as needed. 1 each [...] times daily (before meals and nightly). 05/27/2024 nicotine (Nicoderm CQ) 21 mg/24 hr Patch 24 hrIndications:Nicotin e dependence, cigarettes, uncomplicated Change 1 patch on the skin daily. See package instructions 28 patch 1 10/24/2023 06/21/2024 nicotine polacrilex (Nicorette) 4 mg gumIndications:Nicoti ne dependence, cigarettes, uncomplicated Take 1 each by mouth every 2 hours as needed for Smoking cessation. Nothing but water 15 min before or during use. 100 each 3 10/24/2023 06/21/2024 lamoTRIgine (LaMICtal) 150 mg tablet Take 150 mg by mouth Daily at Noon. 08/17/2023 06/26/2024 lamoTRIgine (LaMICtal) 25 mg tabletIndications:bip olar disorder in remission Take 50 mg by mouth nightly. Indications: bipolar disorder in remission 06/26/2024 LORazepam (Ativan) 0.5 mg TabletIndications:anx iety Take 0.5 mg by mouth every 8 hours. Indications: anxious 04/04/2022 05/27/2024 documented as of this encounter Plan of Treatment Upcoming Encounters Date Type Department Care Team (Latest Contact Info) Description 08/29/2024 1:00 PM EST Hospital En[place] [address] Roland Gooden MD [facility] [place] [address] 08/29/2024 1:00 PM EST - 08/29/2024 2:00 PM EST [place] [phone] Roland Gooden MD [facility] [place] [address] EGD, UPPER GI ENDOSCOPY (WRVU 2.09) 10/02/2024 1:00 PM EDT Office [place] [phone] Juanpablo Hernandez MD [facility] [address] 10/21/2024 9:30 AM EDT Office Visit Internal Medicine at [address] [place] [address] Daryn Garrett MD [facility] DR L[facility] [place] [address] 01/30/2025 1:30 PM EDT Laboratory Appointment Lab at [facility] [place] [address] [place] [phone] 01/30/2025 3:[address] [place] [phone] Arturo Cordero MD [facility] DR [place] [address] 01/30/2025 4:15 PM EDT Office Visit H[place]ology [place] [phone] Arturo Cordero MD [facility] DR [place] [address] Scheduled Procedures Name Priority Associated Diagnoses Date/Ti [...] [facility] BIRADS CATEGORY 1: NEGATIVE [[id number]] Electronically signed by: ZEENAT FLORES MD [facility] at [address] [phone] Your breast imaging exam done on: ??05/01/24 [...] Encounter for screening mammogram for breast cancer Irritable bowel syndrome with constipation Irritable bowel syndrome documented in this encounter Care Teams Town Administrator Relationship Specialty Start Date End Date Daryn Garrett MD [facility] DR L[facility] [address] PCP - General 04/10/24 documented as of this encounter
--- OUTSIDE RECORDS SUMMARY | 2024-08-20 15:49 | XMS_ITS | Encounter Summary ---
Author Organization [facility] [place] [address] Care Team Providers Care Laborer Brush Clearing Name Role Phone Daryn Garrett MD Primary Care Provider Encounter Details Date Type Department Care Team (Late st Contact Info) Description 07/17/2024 Telephone Internal Medicine at [facility] [address] [place] [phone] Julia Gooden Social History Tobacco Use Types [...] * Telephone Encounter - Julia Gooden - 07/17/2024 4:26 PM EST Sharona called pt and left a vm and sent a [employer] message to help schedule * Telephone Encounter - Julia Gooden - 07/17/2024 4:26 PM EST ----- Message from Julia Low sent at 07/01/2024 1:11 PM EST ----- Regarding: Schedule Followup Hi all No mendoza on this but if someone can help me get this patient scheduled for a followup to review her diabetes Sincerely, Saida documented in this encounter Plan of Treatment Upcoming Encounters Date Type Department Care Team (Latest Contact Info) Description 08/29/2024 1:00 PM EST Hospital En[place] [address] Roland Gooden MD [facility] [place] [address] 08/29/2024 1:00 PM EST - 08/29/2024 2:00 PM EST Surgery Gastroenterology at [address] Roland Gooden MD [facility] [place] [address] EGD, UPPER GI ENDOSCOPY (WRVU 2.09) 10/02/2024 1:00 PM EDT Office Visit Ophthalmology at [address]1000 Juanpablo Hernandez MD [facility] [place] [address] 10/21/2024 9:30 AM EDT Office Visit Internal Medicine at [address] [phone] Daryn Garrett MD [facility] DR LILI WALKER [place] [address] 01/30/2025 1:30 PM EDT Laboratory Appointment Lab at [facility] Hematology Oncology [address] [place], [place] [phone] 01/30/2025 3:[address] Scan at [place] [phone] Arturo Cordero MD [facility] HEMATOLOGY [place] [address] 01/30/2025 4:15 PM EDT Office Visit Hematology and Oncology at [place] [phone] Arturo Cordero MD [facility] [place] [address] Scheduled Procedures Name Priority Associated Diagnoses Date/Ti me EGD, UPPER GI ENDOSCOPY (WRVU 2.09) Irritable bowel syndrome with constipation 08/29/2024 1:00 PM EST COLONOSCOPY, DIAGNOSTIC (WRVU 3.26) Irritable bowel syndrome with constipation 08/29/2024 1:00 PM EST documented as of this encounter Visit Diagnoses Not on filedocumented in this encounter Care Teams Laborer Brush Clearing Relationship Specialty Start Date End Date Daryn Garrett MD [facility] DR LILI WALKER [place] [address] PCP - General 04/10/24 documented as of this encounter
--- OUTSIDE RECORDS SUMMARY | 2024-08-20 15:50 | XMS_ITS | Encounter Summary ---
Author Organization [facility] [place] [address] Care Team Providers Care Information Systems Supervisor Name Role Phone Daryn Garrett MD Primary Care Provider Reason for Visit * Reason Comments Melanoma Encounter Details Date Type Department Care Team (Late st Contact Info) Description 05/01/2024 1:45 PM EDT Office [place] [address] Juanpablo Hernandez MD [facility] [place] [address] Conjunctival tumor; Malignant melanoma of conjunctiva, left; [...] 1:00 PM EST Hospital Encounter Gastroenterology at [place] [phone] Roland Gooden MD [facility] [place] [address] 08/29/2024 1:00 PM EST - 08/29/2024 2:00 PM EST Surgery Gastroenterology at [place] [phone] Roland Gooden MD [facility] [place] [address] EGD, UPPER GI ENDOSCOPY (WRVU 2.09) 10/02/2024 1:00 PM EDT Office [place] [phone] Juanpablo Hernandez MD [facility] [place] [address] 10/21/2024 9:30 AM EDT Office Visit Internal Medicine at [address] [phone] Daryn Garrett MD [facility] DR LILI WALKER [place] [address] 01/30/2025 1:30 PM EDT Laboratory Appointment Lab at [facility] [place]ematology Oncology [address] [place] [phone] 01/30/2025 3:[address] [place] [phone] Arturo Cordero MD [facility] HEMATOLOGY [place] [address] 01/30/2025 4:15 PM EDT Office Visit Hematology [place] [address] Arturo Cordero MD [facility] HEMATOLOGY [place] [address] Scheduled Procedures Name Priority Associated Diagnoses Date/Ti [...] syndrome documented in this encounter Care Teams Information Systems Supervisor Relationship Specialty Start Date End Date Daryn Garrett MD [facility] DR LILI WALKER [place] [address] PCP - General 04/10/24 documented as of this encounter
--- OUTSIDE RECORDS SUMMARY | 2024-08-20 15:50 | XMS_ITS | Encounter Summary ---
Author Organization [facility] [place] [address] Care Team Providers Care Tear Down Worker Name Role Phone Rodney Padilla MD Primary Care Provider Reason for Visit * Reason Comments Medication Refill Encounter Details Date Type Department Care Team (Late st Contact Info) Description 02/10/2024 Refill Family Medicine at [facility] [address] [place] [address] Rodney Padilla MD [address] [place] [address] Mixed hyperlipidemia Social History Tobacco Use [...] 1:00 PM EST Hospital Encounter Gastroenterology at [place] [phone] Roland Gooden MD [facility] [place] [address] 08/29/2024 1:00 PM EST - 08/29/2024 2:00 PM EST Surgery [place] [phone] Roland Gooden MD [facility] [place] [address] EGD, UPPER GI ENDOSCOPY (WRVU 2.09) 10/02/2024 1:00 PM EDT Office [place] [phone] Juanpablo Hernandez MD [facility] [place] [address] 10/21/2024 9:30 AM EDT Office Visit Internal Medicine at [facility] [address] [place] [address] Daryn Garrett MD [facility] DR LILI AZEVEDO - [place] [address] 01/30/2025 1:30 PM EDT Laboratory Appointment Lab at [facility] Hematology Oncology [address] [place] [phone] 01/30/2025 3:[address] [place] [phone] Arturo Cordero MD [facility] HEMATOLOGY [place] [address] 01/30/2025 4:15 PM EDT Office Visit Hematology [place] [phone] Arturo Cordero MD [facility] HEMATOLOGY [place] [address] Scheduled Procedures Name Priority Associated Diagnoses Date/Ti me EGD, UPPER GI ENDOSCOPY (WRVU 2.09) Irritable bowel syndrome with constipation 08/29/2024 1:00 PM EST COLONOSCOPY, DIAGNOSTIC (WRVU 3.26) Irritable bowel syndrome with constipation 08/29/2024 1:00 PM EST documented as of this encounter Visit Diagnoses Diagnosis Mixed hyperlipidemia Irritable bowel syndrome with constipation Irritable bowel syndrome documented in this encounter Care Teams Tear Down Worker Relationship Specialty Start Date End Date Rodney Padilla MD PCP - General 07/18/22 04/09/24 documented as of this encounter
--- OUTSIDE RECORDS SUMMARY | 2024-08-20 15:50 | XMS_ITS | Encounter Summary ---
Author Organization [facility] Address [facility] [place] [address] Care Team Providers Care Molding Fitter Name Role Phone Daryn Garrett MD Primary [...] 1:00 PM EST Hospital En[place] [address] Roland Gooden MD [facility] [place] [address] 08/29/2024 1:00 PM EST - 08/29/2024 2:00 PM EST [place] [phone] Roland Gooden MD [facility] [place] [address] EGD, UPPER GI ENDOSCOPY (WRVU 2.09) 10/02/2024 1:00 PM EDT Office [place] [phone] Juanpablo Hernandez MD [facility] [place] [address] 10/21/2024 9:30 AM EDT Office Visit Internal Medicine at [facility] [address] [place] [phone] Daryn Garrett MD [facility] [place] [address] 01/30/2025 1:30 PM EDT Laboratory Appointment Lab at [facility] [place] [address] [place], [place] [phone] 01/30/2025 3:[address] Scan at [place] [phone] Arturo Cordero MD [facility] [place] [address] 01/30/2025 4:15 PM EDT Office Visit Hematology [place] [phone] Arturo Cordero MD [facility] DR [place] [address] Scheduled Procedures Name Priority Associated Diagnoses Date/Ti me EGD, UPPER GI ENDOSCOPY (WRVU 2.09) Irritable bowel syndrome with constipation 08/29/2024 1:00 PM EST COLONOSCOPY, DIAGNOSTIC (WRVU 3.26) Irritable bowel syndrome with constipation 08/29/2024 1:00 PM EST documented as of this encounter Visit Diagnoses Not on filedocumented in this encounter Care Teams Molding Fitter Relationship Specialty Start Date End Date Daryn Garrett MD [facility] [place] [address] PCP - General 04/10/24 documented as of this encounter
--- OUTSIDE RECORDS SUMMARY | 2024-08-20 15:50 | XMS_ITS | Encounter Summary ---
Author Organization [facility] Address [facility] [place] [address] Care Team Providers Care Parimutuel Ticket Cashier Name Role Phone Rodney Padilla MD Primary Care Provider [phone] Reason for Visit * Reason Comments Diabetes Encounter Details Date Type Department Care Team (Late st Contact Info) Description 03/20/2024 2:00 PM EDT TH Visit (TeleHealth) Family Medicine at [facility] [address] [place] [phone] Julia Low, [facility] Type [...] conditions: Yes peripheral neuropathy and cardiovascular disease ([place]/CAD) [] History of diabetes-related amputations [] CHF [] Personal or family history of thyroid cancer [] Personal history of pancreatitis [x] NAFLD/BARRERA - Qt of fatty liver on CT scan from 2021 unclear if ever evaluated and ruled in/out Date of last eye exam: unknown Date of last foot exam: unknown Referring Provider/date: Rodney Padilla MD 06/14/21 Tamera Khan IT COMMUNICATIONS MANAGER Health Beliefs and Attitudes Feelings about having [...] 138 175 153 176 211 152 eA1c 8.12013 8.46 7.20 7.44 8.7 7.95 8.75 9.96 7.92 Acute complications of diabetes: hypoglycemia pt reported BG 70 mg/dL following initiation of mounjaro leading to discontinuation oflantus Have you had a low blood sugar reaction? If yes, how did you feel? Yes, notified by Linux Voice alert ; treated with 20 oz coca-cola [...] TOPICALLY ONCE DAILY 100 each 3 fluticasone alkkyyn-kkmauglzmckv-uuiecllqbq (Trelegy Ellipta) 200-62.5-25 mcg Inhale 1 puff into the lungs daily. Rinse mouth after use 1 each 11 fluticasone propionate (Flonase) 50 mcg/actuation [place], Suspension SPRAY 1 SPRAY IN EACH NOSTRIL TWO TIMES A DAY 48 mL 3 lamoTRIgine (LaMICtal) 150 mg tablet Take 150 mg by mouth Daily at Noon. Blood-Glucose Meter,Continuous (Dexcom G7 Head Operator Sulfide) Misc 1 Device by [facility]Non- Drug; Combo Route) route continuous. Blood-Glucose Sensor (Dexcom G7 Sensor) Device 1 Device by [facility].(Non-Drug; Combo Route) route every10 days. 3 each [...] (before meals and nightly). Miscellaneous Medical Supply [facility] by [facility].(Non-Drug; Combo Route) route. docusate sodium (Colace) 100 [...] each 3 inhalational spacing device (Hesham Aerosol [place] Enhancer) Spacer 1 each by Misc.(Non-Drug; Combo [...] include family stressors and [facility] pain [facility] out laboratory [...] 1:00 PM EST Hospital Encounter [place] [address] Roland Gooden MD [facility] [place] [address] 08/29/2024 1:00 PM EST - 08/29/2024 2:00 PM EST [place] [address] Roland Gooden MD [facility] [place] [address] EGD, UPPER GI ENDOSCOPY (WRVU 2.09) 10/02/2024 1:00 PM EDT Office Visit Ophthalmology at [place] [phone] Juanpablo Hernandez MD [facility] [place] [address] 10/21/2024 9:30 AM EDT Office Visit Internal Medicine at [address] [phone] Daryn Garrett [facility] [place] [address] 01/30/2025 1:30 PM EDT Laboratory Appointment Lab at [facility] Hematology Oncology [address] [place] [phone] 01/30/2025 3:[address] Scan at [place] [phone] Arturo Cordero MD [facility] [place] [address] 01/30/2025 4:15 PM EDT Office Visit Hematology [place] [phone] Arturo Cordero MD [facility] H[place]AT[place] [address] Scheduled Procedures Name Priority Associated Diagnoses Date/Ti me EGD, UPPER GI ENDOSCOPY (WRVU 2.09) Irritable bowel syndrome with constipation 08/29/2024 1:00 PM EST COLONOSCOPY, DIAGNOSTIC (WRVU 3.26) Irritable bowel syndrome with constipation 08/29/2024 1:00 PM EST documented as of this encounter Visit Diagnoses Diagnosis Type 2 diabetes mellitus without long-term current use of insulin- Primary Irritable bowel syndrome with constipation Irritable bowel syndrome documented in this encounter Care Teams Parimutuel Ticket Cashier Relationship Specialty Start Date End Date Rodney Padilla MD PCP - General 07/18/22 04/09/24 documented as of this encounter
--- OUTSIDE RECORDS SUMMARY | 2024-08-20 15:50 | XMS_ITS | Encounter Summary ---
Author Organization [facility] [place] [address] Care Team Providers Care Plant Floor Automation Manager Name Role Phone Rodney Padilla MD Primary Care Provider Encounter Details Date Type Department Care Team (Late st Contact Info) Description 03/21/2024 Telephone Family Medicine at [address] [place] [phone] [facility] Social History Tobacco Use Types Packs/Day Years [...] 1:00 PM EST Hospital En[place] [address] Roland Gooden MD [facility] [place] [address] 08/29/2024 1:00 PM EST - 08/29/2024 2:00 PM EST [place] [address] Roland Gooden MD [facility] [place] [address] EGD, UPPER GI ENDOSCOPY (WRVU 2.09) 10/02/2024 1:00 PM EDT Office [place] [address] Juanpablo Hernandez MD [facility] [place] [address] 10/21/2024 9:30 AM EDT Office Visit Internal Medicine at [facility] [address] [place] [phone] Daryn Garrett MD [facility] DR LILI [place] [address] 01/30/2025 1:30 PM EDT Laboratory Appointment Lab at [facility] [place] [address] [place] [phone] 01/30/2025 3:[address] [place] [phone] Arturo Cordero MD [facility] DR [place] [address] 01/30/2025 4:15 PM EDT Office Visit Hematology [place] [phone] Arturo Cordero MD [facility] DR [place] [address] Scheduled Procedures Name Priority Associated Diagnoses Date/Ti me EGD, UPPER GI ENDOSCOPY (WRVU 2.09) Irritable bowel syndrome with constipation 08/29/2024 1:00 PM EST COLONOSCOPY, DIAGNOSTIC (WRVU 3.26) Irritable bowel syndrome with constipation 08/29/2024 1:00 PM EST documented as of this encounter Visit Diagnoses Not on filedocumented in this encounter Care Teams Plant Floor Automation Manager Relationship Specialty Start Date End Date Rodney Padilla MD PCP - General 1/9/23 10/1/24 documented as of this encounter
--- OUTSIDE RECORDS SUMMARY | 2024-08-20 15:50 | XMS_ITS | Encounter Summary ---
Author Organization [facility] Address [facility] [place] [address] Care Team Providers Care Equal Opportunity Assistant Name Role Phone Rodney Padilla MD [...] 1:00 PM EST Hospital Encounter [place] [address] Roland Gooden MD [facility] [place] [address] 08/29/2024 1:00 PM EST - 08/29/2024 2:00 PM EST [place] [phone] Roland Gooden MD [facility] [place] [address] EGD, UPPER GI ENDOSCOPY (WRVU 2.09) 10/02/2024 1:00 PM EDT Office [place] [phone] Juanpablo Hernandez MD [facility] [place] [address] 10/21/2024 9:30 AM EDT Office Visit Internal Medicine at [facility] [address] [place] [phone] Daryn Garrett MD [facility] DR LILI [place] [address] 01/30/2025 1:30 PM EDT Laboratory Appointment Lab at [facility] Hematology Oncology [address] [place], [place] [phone] 01/30/2025 3:[address] Scan at [place] [phone] Arturo Cordero MD [facility] [place] [address] 01/30/2025 4:15 PM EDT Office Visit Hematology [place] [phone] Arturo Cordero MD [facility] [place] [address] Scheduled Procedures Name Priority Associated Diagnoses Date/Ti me EGD, UPPER GI ENDOSCOPY (WRVU 2.09) Irritable bowel syndrome with constipation 08/29/2024 1:00 PM EST COLONOSCOPY, DIAGNOSTIC (WRVU 3.26) Irritable bowel syndrome with constipation 08/29/2024 1:00 PM EST documented as of this encounter Visit Diagnoses Not on filedocumented in this encounter Care Teams Equal Opportunity Assistant Relationship Specialty Start Date End Date Rodney Padilla MD PCP - General 07/18/22 04/09/24 documented as of this encounter
--- OUTSIDE RECORDS SUMMARY | 2024-08-20 15:50 | XMS_ITS | Encounter Summary ---
[place] [address] Care Team Providers Care Coroner Name Role Phone Rodney Padilla MD Primary Care Provider Reason for Referral * Diagnostic Test (Routine) - Pending Review Specialty Diagnoses / Procedures Referred By Gonzalez kumari Referred To Contact Radiology Diagnoses Irritable bowel syndrome, unspecified type Procedures NM Gastric Emptying Scan Rodney Padilla MD [address] [place] [address] [place] [address] Referral ID Status Reason Start Date Expiration Date Visits Requested Visits Authorized [id number] Pending Review Specialty Service Requested 03/20/2024 09/17/2025 1 1 Reason for Visit * Reason Comments Other Stomach and bowel tr ouble- not improving and ongoing, been to ER recently (flare up) Encounter Details Date Type Department Care Team (Late st Contact Info) Description 03/20/2024 3:30 PM EDT Office Visit Family Medicine at [facility] [address] [place] [phone] Rodney Padilla MD [address] [place] [...] TOPICALLY ONCE DAILY 100 each 3 fluticasone tsykwge-eqlwatiscnhq-ivomocgycg (Trelegy Ellipta) 200-62.5-25 mcg Inhale 1 puff into the lungs daily. Rinse mouth after use 1 each 11 fluticasone propionate (Flonase) 50 mcg/actuation [place], Suspension SPRAY 1 SPRAY IN EACH NOSTRIL TWO TIMES A DAY 48 mL 3 lamoTRIgine (LaMICtal) 150 mg tablet Take 150 mg by mouth Daily at Noon. Blood-Glucose Meter,Continuous (Dexcom G7 Coal Conveyor Operator) Misc 1 Device by [facility]Non- Drug; Combo Route) route continuous. Blood-Glucose Sensor (Dexcom G7 Sensor) Device 1 Device by [facility]Non-Drug; Combo Route) route every10 days. 3 each 11 inhalational spacing device (Hesham Aerosol Grady Enhancer) Spacer 1 each by [facility]Non-Drug; Combo Route) route as needed. 1 each [...] mouth daily. Miscellaneous Medical Supply Misc by [facility]Non-Drug; Combo Route) route. Lantus Solostar U-100 Insulin [...] patient/family/caregiver Referring and communicating with other health medication care manager Documenting clinical information in the electronic or other health record Independently interpreting results Care coordination documented in this encounter Plan of Treatment Upcoming Encounters Date Type Department Care Team (Latest Contact Info) Description 08/29/2024 1:00 PM EST Hospital En[place] [address] Roland Gooden MD [facility] [place] [address] 08/29/2024 1:00 PM EST - 08/29/2024 2:00 PM EST [place] [phone] Roland Gooden MD [facility] [place] [address] EGD, UPPER GI ENDOSCOPY (WRVU 2.09) 10/02/2024 1:00 PM EDT Office [place] [address] Juanpablo Hernandez MD [facility] [place] [address] 10/21/2024 9:30 AM EDT Office Visit Internal Medicine at [address] [phone] Daryn Garrett MD [facility] DR LILI WALKER [place] [address] 01/30/2025 1:30 PM EDT Laboratory Appointment Lab [place] [facility] [place] [address] [place] [phone] 01/30/2025 3:[address] [place] [address] Arturo Cordero MD [facility] DR HEMATOLOGY [place] [address] 01/30/2025 4:15 PM EDT Office Visit Hematology [place] [address] Arturo Cordero MD [facility] DR HEMATOLOGY [place] [address] Scheduled Orders Name Type Priority Associated Diagnoses [...] syndrome documented in this encounter Care Teams Coroner Relationship Specialty Start Date End Date Rodney Padilla MD PCP - General 07/18/22 04/09/24 documented as of this encounter
--- OUTSIDE RECORDS SUMMARY | 2024-08-20 15:50 | XMS_ITS | Encounter Summary ---
Author Organization [facility] [place] [address] Care Team Providers Care Thermoplastic Technician Name Role Phone Rodney Padilla MD Primary Care Provider Encounter Details Date Type Department Care Team (Latest Contact Info) Description 02/01/2024 8:12 AM EDT - 02/01/2024 11:59 PM EDT Hospital Encounter Hematology [place] [address] Malignant melanoma of conjunctiva, left Discharge Disposition: [...] each 10/24/2023 fluticasone propionate (Flonase) 50 mcg/actuation [place], Suspension SPRAY 1 SPRAY IN EACH NOSTRIL TWO TIMES A DAY 48 mL 3 09/28/2023 Blood-Glucose Meter,Continuous (Dexcom G7 Meeting Planner) MiscIndications:Type 2 diabetes mellitus with hyperglycemia, without long-term current use of insulin 1 Device by [facility]Non-Drug; Combo Route) route continuous. 08/18/2023 Blood-Glucose Sensor (Dexcom G7 Sensor) DeviceIndications:Typ e 2 diabetes mellitus with hyperglycemia, without long-term current use of insulin 1 Device by [facility]Non-Drug; Combo Route) route every 10 days. 3 each 11 08/18/2023 inhalational spacing device (Hesham Aerosol [place]ro Enhancer) SpacerIndications:Chr onic obstructive pulmonary disease, unspecified [...] diabetes mellitus 2 mL 11 10/27/2023 03/20/2024 nicotine (Nicoderm CQ) 21 mg/24 hr Patch [...] by mouth Daily at Noon. 08/17/2023 06/26/2024 simvastatin (Zocor) 10 mg tabletIndications:Mix ed hyperlipidemia TAKE ONE TABLET BY MOUTH EVERY DAY 90 tablet 1 08/28/2023 02/10/2024 lamoTRIgine (LaMICtal) 25 mg tabletIndications:bip olar disorder in remission Take 50 mg by mouth nightly. Indications: bipolar disorder in remission 06/26/2024 sucralfate (Carafate) 100 mg/mL Suspension Take 10 [...] 1:00 PM EST Hospital Encounter [place] [phone] Roland Gooden MD [facility] [place] [address] 08/29/2024 1:00 PM EST - 08/29/2024 2:00 PM EST Surgery [place] [phone] Roland Gooden MD [facility] [place] [address] EGD, UPPER GI ENDOSCOPY (WRVU 2.09) 10/02/2024 1:00 PM EDT Office [place] [phone] Juanpablo Hernandez MD [facility] [place] [address] 10/21/2024 9:30 AM EDT Office Visit Internal Medicine at [address] [phone] Daryn Garrett MD [facility] DR LILI [place] [address] 01/30/2025 1:30 PM EDT Laboratory Appointment Lab at [facility] Hematology Oncology [address] [place] [phone] 01/30/2025 3:[address] [place] [address] Arturo Cordero MD [facility] [place] [address] 01/30/2025 4:15 PM EDT Office Visit Hematology [place] [address] Arturo Cordero MD [facility] [place] [address] Scheduled Procedures Name Priority Associated Diagnoses Date/Ti [...] 8:19 AM EDT) Neutrophil % 65.9 % [facility] Neutrophil Absolute 5.25 1.70 - 6.10 x10(3)/[facility] Lymph % 24.4 % [facility] Lymphocytes Abs 1.9 0.9 - 3.2 x10(3)/[facility] Monocyte % 7.5 % [facility] Monocyte Abs 0.6 0.3 - 0.9 x10(3)/[facility] Eos % 1.3 % [facility] Eosinophils Abs 0.1 0.0 - 0.4 x10(3)/[facility] Basophil % 0.6 % [facility] Baso Absolute 0.0 0.0 - 0.1 x10(3)/[facility] Immature Gran % 0.30 % [facility] Comment: Immature granulocytes(IG's)percentage and absolute count will include metamyelocytes, myelocytes, and promyelocytes. Blood smears from CBCs yielding IG's will be scanned manually for concordance. If this scan disagrees with the automated IG or if promyelocytes are noted, a manual differential will be performed. Immature Gran Absolute 0.02 0.00 - 0.04 x10(3)/[facility] Blood 02/01/2024 8:19 AM EDT 02/01/2024 8:39 AM EDT Narrative Resulting Agency Comment Spec In Lab Tee Lara MD HEMATOLOGY ORD ERABLES [facility] [place] [address] * (ABNORMAL) Hemogram (02/01/2024 8:19 AM EDT) White Blood Cell 8.0 4.0 - 9.5 x10(3)/[facility] Red Blood Cell 4.47 4.00 - 5.21 x10(6)/[facility] Hemoglobin 13.1 11.7 - 15.5 g/dL [facility] Hematocrit 39.4 35.7 - 45.8 % [facility] Mean Cell Volume 88.1 82.6 - 94.4 fL [facility] Mean Cell Hemoglobin 29.3 27.1 - 32.0 pg [facility] Mean Cell Hemoglobin Concentration 33.2 31.7 - 35.0 g/dL [facility] Platelet 371(H) 145 - 357 x10(3)/mc L [facility] RDW Standard Deviation 45.4 37.0 - 46.0 fL [facility] RDW coefficient of variation 14.3(H) 11.5 - 14.1 % [facility] Mean Platelet Volume 9.4 7.6 - 12.9 fL [facility] NRBC% auto 0.0 % [facility] NRBC Absolute 0.000 0.000 - 0.000 x10(3)/mc L [facility] Blood 02/01/2024 8:19 AM EDT 02/01/2024 8:39 AM EDT Narrative Resulting Agency Comment Spec In Lab Tee Lara MD HEMATOLOGY ORD ERABLES [facility] [place] [address] * Comprehensive metabolic panel (non-fasting) (02/01/2024 8:19 [...] [facility] [place] [address] * Lactate Dehydrogenase (02/01/2024 8:19 AM EDT) Lactate Dehydrogenase 195 110 - 220 unit/L [facility] Blood 02/01/2024 8:19 AM EDT 02/01/2024 8:39 AM EDT Narrative Resulting Agency Comment Spec In Lab Arturo Cordero MD CHEMISTRY ORDERABLES [facility] [place] [address] documented in this encounter Visit Diagnoses Diagnosis Malignant melanoma of conjunctiva, left Irritable bowel syndrome with constipation Irritable bowel syndrome documented in this encounter Care Teams Thermoplastic Technician Relationship Specialty Start Date End Date Rodney Padilla MD PCP - General 07/18/22 04/09/24 documented as of this encounter
--- OUTSIDE RECORDS SUMMARY | 2024-08-20 15:50 | XMS_ITS | Encounter Summary ---
Author Organization [facility] [place] [address] Care Team Providers Care Recoating Machine Operator Name Role Phone Daryn Garrett MD Primary Care Provider [phone] Reason for Visit * Reason Onset Date Comments Prior Authorization 04/18/2024 tretinoin (R ETIN-A) 0.025 % Cream Encounter Details Date Type Department Care Team (Late st Contact Info) Description 04/18/2024 [place] [phone] Brittanie Merritt MA Prior Authorization (tretinoin (RETIN-A) [...] 1:00 PM EST Hospital En[place] [address] Roland Gooden MD [facility] [place] [address] 08/29/2024 1:00 PM EST - 08/29/2024 2:00 PM EST [place] [address] Roland Gooden MD [facility] [place] [address] EGD, UPPER GI ENDOSCOPY (WRVU 2.09) 10/02/2024 1:00 PM EDT Office Visit Ophthalmology at [place] [phone] Juanpablo Hernandez MD [facility] [place] [address] 10/21/2024 9:30 AM EDT Office Visit Internal Medicine at [address] [place] [phone] Daryn Garrett MD [facility] DR LILI [place] [address] 01/30/2025 1:30 PM EDT Laboratory Appointment Lab at [facility] [place] Oncology [address] [place], [place] [phone] 01/30/2025 3:[address] Scan at [place] [phone] Arturo Cordero MD [facility] [place] [address] 01/30/2025 4:15 PM EDT Office Visit Hematology and Oncology at [place] [phone] Arturo Cordero MD [facility] [place] [address] Scheduled Procedures Name Priority Associated Diagnoses Date/Ti me EGD, UPPER GI ENDOSCOPY (WRVU 2.09) Irritable bowel syndrome with constipation 08/29/2024 1:00 PM EST COLONOSCOPY, DIAGNOSTIC (WRVU 3.26) Irritable bowel syndrome with constipation 08/29/2024 1:00 PM EST documented as of this encounter Visit Diagnoses Not on filedocumented in this encounter Care Teams Recoating Machine Operator Relationship Specialty Start Date End Date Daryn Garrett MD [facility] DR [place] [address] PCP - General 04/10/24 documented as of this encounter
--- OUTSIDE RECORDS SUMMARY | 2024-08-20 15:50 | XMS_ITS | Encounter Summary ---
Author Organization [facility] [place] [address] Care Team Providers Care Academic Affairs Dean Name Role Phone Rodney Padilla MD Primary Care Provider Reason for Visit * Reason Comments Medication Refill Encounter Details Date Type Department Care Team (Late st Contact Info) Description 03/22/2024 Refill Family Medicine at [facility] [address] [place] [address] Rodney Padilla MD [address] [place] [address] [place] [address] Social History Tobacco Use Types Packs/Day [...] Please direct patient to call their pharmacy, [facility] for a refill. documented in this encounter Plan of Treatment Upcoming Encounters Date Type Department Care Team (Latest Contact Info) Description 08/29/2024 1:00 PM EST Hospital Encounter [place] [address] Roland Gooden MD [facility] [place] [place] [address] 08/29/2024 1:00 PM EST - 08/29/2024 2:00 PM EST [place] [phone] Roland Gooden MD [facility] [place] [address] EGD, UPPER GI ENDOSCOPY (WRVU 2.09) 10/02/2024 1:00 PM EDT Office Visit Ophthalmology at [place] [phone] Juanpablo Hernandez MD [facility] [place] [address] 10/21/2024 9:30 AM EDT Office Visit Internal Medicine at [address] [phone] Daryn Garrett MD [facility] DR LILI [place] [address] 01/30/2025 1:30 PM EDT Laboratory Appointment Lab at [facility] [place] Oncology [address] [place] [phone] 01/30/2025 3:[address] Scan at [place] [phone] Arturo Cordero MD [facility] DR [place] [address] 01/30/2025 4:15 PM EDT Office Visit Hematology [place] [phone] Arturo Cordero MD [facility] DR [place] [address] Scheduled Procedures Name Priority Associated Diagnoses Date/Ti wa EGD, UPPER GI ENDOSCOPY (WRVU 2.09) Irritable bowel syndrome with constipation 08/29/2024 1:00 PM EST COLONOSCOPY, DIAGNOSTIC (WRVU 3.26) Irritable bowel syndrome with constipation 08/29/2024 1:00 PM EST documented as of this encounter Visit Diagnoses Not on filedocumented in this encounter Care Teams Academic Affairs Dean Relationship Specialty Start Date End Date Rodney Padilla MD PCP - General 07/18/22 04/09/24 documented as of this encounter
--- OUTSIDE RECORDS SUMMARY | 2024-08-20 15:50 | XMS_ITS | Encounter Summary ---
Author Organization [facility] [place] [address] Care Team Providers Care Composing Machine Operator Name Role Phone Rodney Padilla MD Primary Care Provider [phone] Reason for Visit * Reason Onset Date Comments Medication Refill 02/18/2024 Encounter Details Date Type Department Care Team (Late st Contact Info) Description 02/18/2024 Refill Family Medicine at [facility] [address] [place] [address] Rodney Padilla MD [address] [place] [address] [facility] [place] [address] Essential hypertension Social History Tobacco Use [...] 1:00 PM EST Hospital Encounter [place] [phone] Rloand Gooden MD [facility] [place] [address] 08/29/2024 1:00 PM EST - 08/29/2024 2:00 PM EST Surgery [place] [phone] Roland Gooden MD [facility] [place] [address] EGD, UPPER GI ENDOSCOPY (WRVU 2.09) 10/02/2024 1:00 PM EDT Office [place] [phone] Juanpablo Hernandez MD [facility] [place] [address] 10/21/2024 9:30 AM EDT Office Visit Internal Medicine at [facility] [address] [place] [address] Daryn Garrett MD [facility] DR LILI WALKER [place] [address] 01/30/2025 1:30 PM EDT Laboratory Appointment Lab at [facility] Hematology Oncology [address] [place] [phone] 01/30/2025 3:[address] [place] [address] Arturo Cordero MD [facility] DR HEMATOLOGY [place] [address] 01/30/2025 4:15 PM EDT Office Visit Hematology [place] [address] Arturo Cordero MD [facility] DR HEMATOLOGY [place] [address] Scheduled Procedures Name Priority Associated Diagnoses Date/Ti ct EGD, UPPER GI ENDOSCOPY (WRVU 2.09) Irritable bowel syndrome with constipation 08/29/2024 1:00 PM EST COLONOSCOPY, DIAGNOSTIC (WRVU 3.26) Irritable bowel syndrome with constipation 08/29/2024 1:00 PM EST documented as of this encounter Visit Diagnoses Diagnosis Essential hypertension Unspecified essential hypertension Irritable bowel syndrome with constipation Irritable bowel syndrome documented in this encounter Care Teams Composing Machine Operator Relationship Specialty Start Date End Date Rodney Padilla MD PCP - General 07/18/22 04/09/24 documented as of this encounter
--- OUTSIDE RECORDS SUMMARY | 2024-08-20 15:50 | XMS_ITS | Encounter Summary ---
Author Organization [facility] [address] Care Team Providers Care Workforce Planner Name Role Phone Rodney Padilla MD Primary Care Provider Reason for Referral * Diagnostic Test (Routine) - Closed Specialty Diagnoses / Procedures Referred By Contac t Referred To Contact Radiology Diagnoses Malignant melanoma of conjunctiva, left Procedures CT Neck Soft Tissue w Contrast (Generic) Tee Lara MD [facility] DR HEMATOLOGY/[place] [address] [facility] [place] [address] Referral ID Status Reason Start Date Expiration Date V isits Requested Visits Authorized [id number] Closed Specialty Service Requested 08/03/2023 01/31/2025 1 1 * Diagnostic Test (Routine) - Closed Specialty Diagnoses / Procedures Referred By Contac t Referred To Contact Radiology Diagnoses Malignant melanoma of conjunctiva, left Procedures CT Chest Abdomen Pelvis w Contrast (Generic) Tee Lara MD [facility] DR HEMATOLOGY/[place] [address] [facility] [place] [address] Referral ID Status Reason Start Date Expiration Date V isits Requested Visits Authorized [id number] Closed Specialty Service Requested 08/03/2023 01/31/2025 1 1 Reason for Visit * Diagnostic Test (Routine) - Closed Specialty Diagnoses / Procedures Referred By Contac t Referred To Contact Radiology Diagnoses Malignant melanoma of conjunctiva, left Procedures CT Chest Abdomen Pelvis w Contrast (Generic) Tee Lara MD [facility] DR HEMATOLOGY/[place] [address] [facility] [place] [address] Referral ID Status Reason Start Date Expiration Date V isits Requested Visits Authorized [id number] Closed Specialty Service Requested 08/03/2023 01/31/2025 1 1 Encounter Details Date Type Department Care Team (Latest Contact Info) Description 02/01/2024 8:04 AM EDT - 02/01/2024 8:11 AM EDT Hospital Encounter [place] [phone] Arturo Cordero MD [facility] DR HEMATOLOGY [place] [address] Malignant melanoma of conjunctiva, left [...] 11 10/24/2023 fluticasone propionate (Flonase) 50 mcg/actuation [place], Suspension SPRAY 1 SPRAY IN EACH NOSTRIL TWO TIMES A DAY 48 mL 3 09/28/2023 Blood-Glucose Meter,Continuous (Dexcom G7 [employer] Car Repairman) MiscIndications:Type 2 diabetes mellitus with hyperglycemia, without long-term current use of insulin 1 Device by [facility]Non-Drug; Combo Route) route continuous. 08/18/2023 Blood-Glucose Sensor (Dexcom G7 Sensor) DeviceIndications:Typ e 2 diabetes mellitus with hyperglycemia, without long-term current use of insulin 1 Device by [facility].(Non-Drug; Combo Route) route every 10 days. 3 each 08/18/2023 inhalational spacing device (Hesham Aerosol Price Enhancer) SpacerIndications:Chr onic obstructive pulmonary disease, unspecified COPD type 1 each by [facility].(Non-Drug; Combo Route) route as needed. 1 each [...] 1:00 PM EST Hospital Encounter [place] [phone] Roland Gooden MD [facility] [place] [address] 08/29/2024 1:00 PM EST - 08/29/2024 2:00 PM EST Surgery [place] [phone] Roland Gooden MD [facility] [place] [address] EGD, UPPER GI ENDOSCOPY (WRVU 2.09) 10/02/2024 1:00 PM EDT Office [place] [phone] Juanpablo Hernandez MD [facility] [place] [address] 10/21/2024 9:30 AM EDT Office Visit Internal Medicine at [facility] [address] [place] [address] Daryn Garrett MD [facility] DR LILI WALKER - [place] [address] 01/30/2025 1:30 PM EDT Laboratory Appointment Lab at [facility] Hematology Oncology [address] [place] [phone] 01/30/2025 3:[address] [place] [phone] Arturo Cordero MD [facility] DR HEMATOLOGY [place] [address] 01/30/2025 4:15 PM EDT Office Visit Hematology [place] [phone] Arturo Cordero MD [facility] DR HEMATOLOGY [place] [address] Scheduled Procedures Name Priority Associated Diagnoses Date/Ti [...] (Generic) (02/01/2024 10:24 AM EDT) WORKSTATION ID [id number] RAD Anatomical Region Laterality Modality Neck, Head [...] who have questions please contact the health medical care evaluation specialist that requested your imaging first. ? [...] patients who have questions please contactthe health medical care evaluation specialist that requested your imaging first. Arturo Cordero MD IMG CT ORDERABLES * CT Chest Abdomen Pelvis w Contrast (Generic) (02/01/2024 10:24 AM EDT) Pathologist [employer] WORKSTATION ID [id number] RAD Anatomical Region Laterality Modality Abdomen, Pelvis [...] who have questions please contact the health medical care evaluation specialist that requested your imaging first. ? [...] patients who have questions please contactthe health medical care evaluation specialist that requested your imaging first. Arturo [...] mLs documented in this encounter Care Teams Workforce Planner Relationship Specialty Start Date End Date Rodney Padilla MD PCP - General 07/18/22 04/09/24 documented as of this encounter
--- OUTSIDE RECORDS SUMMARY | 2024-08-20 15:50 | XMS_ITS | Encounter Summary ---
Author Organization [facility], [facility] [place] [address] Care Team Providers Care Coordinator Cardiopulmonary Services Name Role Phone Daryn Garrett MD Primary Care Provider Encounter Details Date Type Department Care Team (Late st Contact Info) Description 04/15/2024 [place] [address] Social History Tobacco Use Types Packs/Day Years [...] 1:00 PM EST Hospital Encounter Gastroenterology at [place] [phone] Roland Gooden MD [facility] [place] [place] [address] 08/29/2024 1:00 PM EST - 08/29/2024 2:00 PM EST [place] [phone] Roland Gooden MD [facility] [place] [address] EGD, UPPER GI ENDOSCOPY (WRVU 2.09) 10/02/2024 1:00 PM EDT Office [place] [phone] Juanpablo Hernandez MD [facility] [place] [address] 10/21/2024 9:30 AM EDT Office Visit Internal Medicine at [address] [place] [address] Daryn Garrett MD [facility] [place] [address] 01/30/2025 1:30 PM EDT Laboratory Appointment Lab at [facility] Hematology Oncology [address] [place] [phone] 01/30/2025 3:[address] [place] [phone] Arturo Cordero MD [facility] [place] [address] 01/30/2025 4:15 PM EDT Office Visit Hematology [place] [address] Arturo Cordero MD [facility] [place] [address] Scheduled Procedures Name Priority Associated Diagnoses Date/Ti [...] on filedocumented in this encounter Care Teams Coordinator Cardiopulmonary Services Relationship Specialty Start Date End Date Daryn Garrett MD [facility] DR LILI WALKER - [place], [place] [phone] PCP - General 04/10/24 documented as of this encounter
--- OUTSIDE RECORDS SUMMARY | 2024-08-20 15:50 | XMS_ITS | Encounter Summary ---
Author Organization [facility] [place] [address] Care Team Providers Care Mobile Disc Jockey Name Role Phone Rodney Padilla MD Primary Care Provider Reason for Visit * Reason Onset Date Comments Medication Refill 02/10/2024 Encounter Details Date Type Department Care Team (Late st Contact Info) Description 02/10/2024 Refill Family Medicine at [facility] [address] [place] [address] Rodney Padilla MD [address] [place] [address] [place] [address] Mixed hyperlipidemia Social History Tobacco Use [...] 1:00 PM EST Hospital Encounter [place] [phone] Roland Gooden MD [facility] [place] [address] 08/29/2024 1:00 PM EST - 08/29/2024 2:00 PM EST Surgery [place] [phone] Roland Gooden MD [facility] [place] [address] EGD, UPPER GI ENDOSCOPY (WRVU 2.09) 10/02/2024 1:00 PM EDT Office [place] [phone] Juanpablo Hernandez MD [facility] [place] [address] 10/21/2024 9:30 AM EDT Office Visit Internal Medicine at [address] [phone] Daryn Garrett MD [facility] DR LILI [place] [address] 01/30/2025 1:30 PM EDT Laboratory Appointment Lab at [facility] Hematology Oncology [address] [place] [phone] 01/30/2025 3:[address] [place] [phone] Arturo Cordero MD [facility] [place] [address] 01/30/2025 4:15 PM EDT Office Visit Hematology [place] [address] Arturo Cordero MD [facility] DR [place] [address] Scheduled Procedures Name Priority Associated Diagnoses Date/Ti me EGD, UPPER GI ENDOSCOPY (WRVU 2.09) Irritable bowel syndrome with constipation 08/29/2024 1:00 PM EST COLONOSCOPY, DIAGNOSTIC (WRVU 3.26) Irritable bowel syndrome with constipation 08/29/2024 1:00 PM EST documented as of this encounter Visit Diagnoses Diagnosis Mixed hyperlipidemia Irritable bowel syndrome with constipation Irritable bowel syndrome documented in this encounter Care Teams Mobile Disc Jockey Relationship Specialty Start Date End Date Rodney Padilla MD PCP - General 07/18/22 04/09/24 documented as of this encounter
--- OUTSIDE RECORDS SUMMARY | 2024-08-20 15:50 | XMS_ITS | Encounter Summary ---
Author Organization [facility] Address [facility] [place] [address] Care Team Providers Care Lobsterman Name Role Phone Rodney Padilla MD Primary [...] 1:00 PM EST Hospital Encounter [place] [address] Roland Gooden MD [facility] [place] [address] 08/29/2024 1:00 PM EST - 08/29/2024 2:00 PM EST [place] [phone] Roland Gooden MD [facility] [address] EGD, UPPER GI ENDOSCOPY (WRVU 2.09) 10/02/2024 1:00 PM EDT Office [place] [phone] Juanpablo Hernandez MD [facility] [place] [address] 10/21/2024 9:30 AM EDT Office Visit Internal Medicine at [facility] [address] [place] [phone] Daryn Garrett MD [facility] DR LILI [place] [address] 01/30/2025 1:30 PM EDT Laboratory Appointment Lab at [facility] Hematology Oncology [address] [place], [place] [phone] 01/30/2025 3:[address] Scan at [place] [phone] Arturo Cordero MD [facility] [place] [address] 01/30/2025 4:15 PM EDT Office Visit Hematology [place] [phone] Arturo Cordero MD [facility] DR [place] [address] Scheduled Procedures Name Priority Associated Diagnoses Date/Ti me EGD, UPPER GI ENDOSCOPY (WRVU 2.09) Irritable bowel syndrome with constipation 08/29/2024 1:00 PM EST COLONOSCOPY, DIAGNOSTIC (WRVU 3.26) Irritable bowel syndrome with constipation 08/29/2024 1:00 PM EST documented as of this encounter Visit Diagnoses Not on filedocumented in this encounter Care Teams Lobsterman Relationship Specialty Start Date End Date Rodney Padilla MD PCP - General 07/18/22 04/09/24 documented as of this encounter
--- OUTSIDE RECORDS SUMMARY | 2024-08-20 15:50 | XMS_ITS | Encounter Summary ---
Author Organization [facility] [place] [address] Care Team Providers Care Fermentation Manager Name Role Phone Rodney Padilla MD Primary Care Provider Reason for Visit * Reason Onset Date Comments Medication Refill 04/08/2024 Encounter Details Date Type Department Care Team (Late st Contact Info) Description 04/08/2024 Refill Family Medicine at [facility] [address] [place] [address] Rodney Padilla MD [address] [place] [address] [place] [address] Essential hypertension Social History Tobacco Use [...] Last Refill (for each medication): 04/05/2023 3,726mL/3 [place] Medication category requirements (labs etc): na Status [...] 1:00 PM EST Hospital Encounter [place] [phone] Roland Gooden MD [facility] [place] [address] 08/29/2024 1:00 PM EST - 08/29/2024 2:00 PM EST [place] [phone] Roland Gooden MD [facility] [place] [address] EGD, UPPER GI ENDOSCOPY (WRVU 2.09) 10/02/2024 1:00 PM EDT Office [place] [phone] Juanpablo Hernandez MD [facility] [address] 10/21/2024 9:30 AM EDT Office Visit Internal Medicine at [address] [phone] Daryn Garrett MD [facility] DR LILI [place] [address] 01/30/2025 1:30 PM EDT Laboratory Appointment Lab at [facility] Hematology Oncology [address] [place] [phone] 01/30/2025 3:[address] [place] [phone] Arturo Cordero MD [facility] [place] [address] 01/30/2025 4:15 PM EDT Office Visit Hematology [place] [phone] Arturo Cordero MD [facility] DR [place] [address] Scheduled Procedures Name Priority Associated Diagnoses Date/Ti me EGD, UPPER GI ENDOSCOPY (WRVU 2.09) Irritable bowel syndrome with constipation 08/29/2024 1:00 PM EST COLONOSCOPY, DIAGNOSTIC (WRVU 3.26) Irritable bowel syndrome with constipation 08/29/2024 1:00 PM EST documented as of this encounter Visit Diagnoses Diagnosis Essential hypertension Unspecified essential hypertension Irritable bowel syndrome with constipation Irritable bowel syndrome documented in this encounter Care Teams Fermentation Manager Relationship Specialty Start Date End Date Rodney Padilla MD PCP - General 07/18/22 04/09/24 documented as of this encounter
--- OUTSIDE RECORDS SUMMARY | 2024-08-20 15:50 | XMS_ITS | Encounter Summary ---
Author Organization [facility] Address [facility] [address] Care Team Providers Care Sales Trainee Name Role Phone Rodney Padilla MD Primary [...] 1:00 PM EST Hospital En[place] [address] Roland Gooden MD [facility] [place] [address] 08/29/2024 1:00 PM EST - 08/29/2024 2:00 PM EST [place] [phone] Roland Gooden MD [facility] [place] [address] EGD, UPPER GI ENDOSCOPY (WRVU 2.09) 10/02/2024 1:00 PM EDT Office [place] [phone] Juanpablo Hernandez MD [facility] [place] [address] 10/21/2024 9:30 AM EDT Office Visit Internal Medicine at [facility] [address] [place] [phone] Daryn Garrett MD [facility] DR LILI WALKER [place] [address] 01/30/2025 1:30 PM EDT Laboratory Appointment Lab at [facility] Hematology Oncology [address] [place], [place] [phone] 01/30/2025 3:[address] Scan at [place] [phone] Arturo Cordero MD [facility] HEMATOLOGY [place] [address] 01/30/2025 4:15 PM EDT Office Visit Hematology [place] [phone] Arturo Cordero MD [facility] DR HEMATOLOGY [place] [address] Scheduled Procedures Name Priority Associated Diagnoses Date/Ti me EGD, UPPER GI ENDOSCOPY (WRVU 2.09) Irritable bowel syndrome with constipation 08/29/2024 1:00 PM EST COLONOSCOPY, DIAGNOSTIC (WRVU 3.26) Irritable bowel syndrome with constipation 08/29/2024 1:00 PM EST documented as of this encounter Visit Diagnoses Not on filedocumented in this encounter Care Teams Sales Trainee Relationship Specialty Start Date End Date Rodney Padilla MD PCP - General 07/18/22 04/09/24 documented as of this encounter
--- OUTSIDE RECORDS SUMMARY | 2024-08-20 15:50 | XMS_ITS | Encounter Summary ---
Author Organization [facility] Address [facility] [place] [address] Care Team Providers Care Manager Internet Retails Sales Name Role Phone Daryn Garrett MD Primary Care Provider Encounter Details Date Type Department Care Team (Late st Contact Info) Description 04/15/2024 [place] [phone] Tita Lee MD [facility] [place] [address] Social History Tobacco Use Types Packs/Day Years [...] encounter Miscellaneous Notes * Telephone Encounter - iTta Lee MD - 04/15/2024 11:43 PM EDT Images from the original note were not included. Telephone Triage Note Initial contact date: 04/15/2024 Initial contact time: 11:43 PM Referring provider: Tonia Mcrae APRN Patient location: [facility] Past medical history: ASCVD s/p PCI [...] ILD vs COPD who presents to the [facility] ED for diverticulitis flare. She is noted [...] 1:00 PM EST Hospital Encounter Gastroenterology at [place] [phone] Roland Gooden MD [facility] [place] [address] 08/29/2024 1:00 PM EST - 08/29/2024 2:00 PM EST Surgery Gastroenterology at [place] [phone] Roland Gooden MD [facility] [place]STRO[place] [address] EGD, UPPER GI ENDOSCOPY (WRVU 2.09) 10/02/2024 1:00 PM EDT Office Visit Ophthalmology at [place] [phone] Juanpablo Hernandez MD [facility] [place] [address] 10/21/2024 9:30 AM EDT Office Visit Internal Medicine at [facility] [address] [place] [phone] Daryn Garrett MD [facility] [place] [address] 01/30/2025 1:30 PM EDT Laboratory Appointment Lab at [facility] Hematology Oncology [address] [place] [phone] 01/30/2025 3:[address] [place] [phone] Arturo Cordero MD [facility] HEMATOLOGY [place] [address] 01/30/2025 4:15 PM EDT Office Visit Hematology [place] [phone] Arturo Cordero MD [facility] HEMATOLOGY [place] [address] Scheduled Procedures Name Priority Associated Diagnoses Date/Ti me EGD, UPPER GI ENDOSCOPY (WRVU 2.09) Irritable bowel syndrome with constipation 08/29/2024 1:00 PM EST COLONOSCOPY, DIAGNOSTIC (WRVU 3.26) Irritable bowel syndrome with constipation 08/29/2024 1:00 PM EST documented as of this encounter Visit Diagnoses Not on filedocumented in this encounter Care Teams Manager Internet Retails Sales Relationship Specialty Start Date End Date Daryn Garrett MD [facility] DR L[place] [address] PCP - General 04/10/24 documented as of this encounter
--- OUTSIDE RECORDS SUMMARY | 2024-08-20 15:50 | XMS_ITS | Encounter Summary ---
Author Organization [facility] Address [facility] [place] [address] Care Team Providers Care Pressure Tester Name Role Phone Rodney Padilla MD Primary Care Provider Reason for Visit * Reason Onset Date Comments Medication Refill 02/10/2024 Encounter Details Date Type Department Care Team (Late st Contact Info) Description 02/10/2024 Refill Family Medicine at [facility] [address] [place] [address] Luis E Narayan MD [facility] DR LIL[place] [address] Social History Tobacco Use Types Packs/Day Years [...] 1:00 PM EST Hospital Encounter [place] [phone] Roland Gooden MD [facility] [place] [address] 08/29/2024 1:00 PM EST - 08/29/2024 2:00 PM EST Surgery [place] [phone] Roland Gooden MD [facility] [place] [address] EGD, UPPER GI ENDOSCOPY (WRVU 2.09) 10/02/2024 1:00 PM EDT Office [place] [phone] Juanpablo Hernandez MD [facility] [place] [address] 10/21/2024 9:30 AM EDT Office Visit Internal Medicine at [address] [place] [address] Daryn Garrett MD [facility] DR [place] [address] 01/30/2025 1:30 PM EDT Laboratory Appointment Lab at [facility] Hematology Oncology [address] [place] [phone] 01/30/2025 3:[address] [place] [phone] Arturo Cordero MD [facility] [place] [address] 01/30/2025 4:15 PM EDT Office Visit Hematology [place] [phone] Arturo Cordero MD [facility] [place] [address] Scheduled Procedures Name Priority Associated Diagnoses Date/Ti me EGD, UPPER GI ENDOSCOPY (WRVU 2.09) Irritable bowel syndrome with constipation 08/29/2024 1:00 PM EST COLONOSCOPY, DIAGNOSTIC (WRVU 3.26) Irritable bowel syndrome with constipation 08/29/2024 1:00 PM EST documented as of this encounter Visit Diagnoses Not on filedocumented in this encounter Care Teams Pressure Tester Relationship Specialty Start Date End Date Rodney Padilla MD PCP - General 07/18/22 04/09/24 documented as of this encounter
--- OUTSIDE RECORDS SUMMARY | 2024-08-20 15:50 | XMS_ITS | Encounter Summary ---
[place] [address] Care Team Providers Care Telemarketing Sales Representative Name Role Phone Daryn Garrett MD Primary Care Provider Reason for Referral * Consultation (Urgent) - Authorized Specialty Diagnoses / Procedures Referred By Gonzalez kumari Referred To Contact Gastroenterology Diagnoses Chronic LLQ pain EVAL AND TREAT CAR Tonia Mcrae, KATHIA [address] [address] [facility] [address] [address] Referral ID Status Reason Start Date Expiration Date Visits Requested Visits Authorized [id number] Authorized Consult, Test & Treat PCP Updated and/or Approved 04/16/2024 04/16/2025 6 6 Encounter Details Date Type Department Care Team (Late st Contact Info) Description 04/16/2024 Transcribe Orders eDH Incoming Referrals [phone] Tonia Mcrae, KATHIA [address] [place] [id number] Chronic LLQ pain Social History Tobacco Use [...] 1:00 PM EST Hospital Encounter [place] [address] Roland Gooden MD [facility] [place] [address] 08/29/2024 1:00 PM EST - 08/29/2024 2:00 PM EST [place] [address] Roland Gooden MD [facility] [place] [address] EGD, UPPER GI ENDOSCOPY (WRVU 2.09) 10/02/2024 1:00 PM EDT Office Visit Ophthalmology at [address] Juanpablo Hernandez MD [facility] [place] [address] 10/21/2024 9:30 AM EDT Office Visit Internal Medicine at [address] [phone] Daryn Garrett MD [facility] DR LILI WALKER - [place] [address] 01/30/2025 1:30 PM EDT Laboratory Appointment Lab at [facility] [place] Hematology Oncology [address] [place], [place] [phone] 01/30/2025 3:[address] Scan at [place] [phone] Arturo Cordero MD [facility] HEMATOLOGY [place] [address] 01/30/2025 4:15 PM EDT Office Visit Hematology and Oncology at [place] [phone] Arturo Cordero MD [facility] HEMATOLOGY [place] [address] Scheduled Procedures Name Priority Associated Diagnoses Date/Ti [...] LLQ pain Abdominal pain, left lower quadrant Irritable bowel syndrome with constipation Irritable bowel syndrome documented in this encounter Care Teams Telemarketing Sales Representative Relationship Specialty Start Date End Date Daryn Garrett MD [facility] DR LILI WALKER [place] [address] PCP - General 04/10/24 documented as of this encounter
--- OUTSIDE RECORDS SUMMARY | 2024-08-20 15:50 | XMS_ITS | Encounter Summary ---
Author Organization Replaced By [facility] Address [facility] [place] [address] Care Team Providers Care Bookmobile Driver Name Role Phone Rodney Padilla MD [...] 1:00 PM EST Hospital Encounter [place] [address] Roland Gooden MD [facility] [place] [address] 08/29/2024 1:00 PM EST - 08/29/2024 2:00 PM EST Surgery [place] [phone] Roland Gooden MD [facility] [place] [address] EGD, UPPER GI ENDOSCOPY (WRVU 2.09) 10/02/2024 1:00 PM EDT Office [place] [phone] Juanpablo Hernandez MD [facility] [place] [address] 10/21/2024 9:30 AM EDT Office Visit Internal Medicine at [facility] [address] [place] [phone] Daryn Garrett MD [facility] DR LILI WALKER - PR[place] [address] 01/30/2025 1:30 PM EDT Laboratory Appointment Lab at [facility] Hematology Oncology [address] [place], [place] [phone] 01/30/2025 3:[address] Scan at [place] [phone] Arturo Cordero MD [facility] HEMATOLOGY AND [place] [address] 01/30/2025 4:15 PM EDT Office Visit Hematology [place] [phone] Arturo Cordero MD [facility] DR HEMATOLOGY AND [place] [address] Scheduled Procedures Name Priority Associated Diagnoses Date/Ti me EGD, UPPER GI ENDOSCOPY (WRVU 2.09) Irritable bowel syndrome with constipation 08/29/2024 1:00 PM EST COLONOSCOPY, DIAGNOSTIC (WRVU 3.26) Irritable bowel syndrome with constipation 08/29/2024 1:00 PM EST documented as of this encounter Visit Diagnoses Not on filedocumented in this encounter Care Teams Bookmobile Driver Relationship Specialty Start Date End Date Rodney Padilla MD PCP - General 07/18/22 04/09/24 documented as of this encounter
--- OUTSIDE RECORDS SUMMARY | 2024-08-20 15:50 | XMS_ITS | Encounter Summary ---
Author Organization [facility] [place] [address] Care Team Providers Care History Professor Name Role Phone Rodney Padilla MD Primary Care Provider Encounter Details Date Type Department Care Team (Late st Contact Info) Description 02/28/2024 Notes Only Sleep Center at [facility] [address] [place] [address] Barbra Martínez C, RT Social History Tobacco [...] 1:00 PM EST Hospital Encounter [place] [address] Roland Gooden MD [facility] [place] [address] 08/29/2024 1:00 PM EST - 08/29/2024 2:00 PM EST Surgery [place] [address] Roland Gooden MD [facility] [place] [address] EGD, UPPER GI ENDOSCOPY (WRVU 2.09) 10/02/2024 1:00 PM EDT Office [place] [phone] Juanpablo Hernandez MD [facility] [place] [address] 10/21/2024 9:30 AM EDT Office Visit Internal Medicine at [address] [place] [phone] Daryn Garrett MD [facility] [place] [address] 01/30/2025 1:30 PM EDT Laboratory Appointment Lab at [facility] [place] [place] Hematology Oncology [address] [place] [phone] 01/30/2025 3:[address] [place] [phone] Arturo Cordero MD [facility] [place] [address] 01/30/2025 4:15 PM EDT Office Visit Hematology [place] [phone] Arturo Cordero MD [facility] [place] [address] Scheduled Procedures Name Priority Associated Diagnoses Date/Ti me EGD, UPPER GI ENDOSCOPY (WRVU 2.09) Irritable bowel syndrome with constipation 08/29/2024 1:00 PM EST COLONOSCOPY, DIAGNOSTIC (WRVU 3.26) Irritable bowel syndrome with constipation 08/29/2024 1:00 PM EST documented as of this encounter Visit Diagnoses Not on filedocumented in this encounter Care Teams History Professor Relationship Specialty Start Date End Date Rodney Padilla MD PCP - General 07/18/22 04/09/24 documented as of this encounter
--- OUTSIDE RECORDS SUMMARY | 2024-08-20 15:50 | XMS_ITS | Encounter Summary ---
Author Organization [facility] Address [facility] [place] [address] Care Team Providers Care Telemarketing Manager Name Role Phone Daryn Garrett MD Primary Care Provider Reason for Visit * Reason Onset Date Comments Medication Refill 04/17/2024 Encounter Details Date Type Department Care Team (Late st Contact Info) Description 04/17/2024 Refill Internal Medicine at [facility] [address] [place] [phone] Daryn Garrett MD [facility] DR LILI WALKER - [place] [address] Social History Tobacco Use Types Packs/Day Years [...] 1:00 PM EST Hospital Encounter Gastroenterology at [place] [phone] Roland Gooden MD [facility] [place] [address] 08/29/2024 1:00 PM EST - 08/29/2024 2:00 PM EST Surgery [place] [address] Roland Gooden MD [facility] [place] [address] EGD, UPPER GI ENDOSCOPY (WRVU 2.09) 10/02/2024 1:00 PM EDT Office [place] [phone] Juanpablo Hernandez MD [facility] [place] [address] 10/21/2024 9:30 AM EDT Office Visit Internal Medicine at [address] [phone] Daryn Garrett MD [facility] DR LILI WALKER - [place] [address] 01/30/2025 1:30 PM EDT Laboratory Appointment Lab at [facility] Hematology Oncology [address] [place] [phone] 01/30/2025 3:[address] [place] [address] Arturo Cordero MD [facility] HEMATOLOGY [place] [address] 01/30/2025 4:15 PM EDT Office Visit Hematology [place] [address] Arturo Cordero MD [facility] HEMATOLOGY [place] [address] Scheduled Procedures Name Priority Associated Diagnoses Date/Ti me EGD, UPPER GI ENDOSCOPY (WRVU 2.09) Irritable bowel syndrome with constipation 08/29/2024 1:00 PM EST COLONOSCOPY, DIAGNOSTIC (WRVU 3.26) Irritable bowel syndrome with constipation 08/29/2024 1:00 PM EST documented as of this encounter Visit Diagnoses Not on filedocumented in this encounter Care Teams Telemarketing Manager Relationship Specialty Start Date End Date Daryn Garrett MD [facility] [address] - [place] [address] PCP - General 04/10/24 documented as of this encounter
--- OUTSIDE RECORDS SUMMARY | 2024-08-20 15:50 | XMS_ITS | Encounter Summary ---
Author Organization [facility] [place] [address] Care Team Providers Care Security Operations Analyst Name Role Phone Rodney Padilla MD Primary Care Provider Reason for Visit * Reason Comments Medication Refill Encounter Details Date Type Department Care Team (Late st Contact Info) Description 03/28/2024 Refill Family Medicine at [facility] [address] [place] [address] Rodney Padilla MD [address] [place] [address] [place] [address] Social History Tobacco Use Types Packs/Day [...] 1:00 PM EST Hospital Encounter Gastroenterology at [place] [phone] Roland Gooden MD [facility] [place] [address] 08/29/2024 1:00 PM EST - 08/29/2024 2:00 PM EST [place] [address] Roland Gooden MD [facility] [place] [address] EGD, UPPER GI ENDOSCOPY (WRVU 2.09) 10/02/2024 1:00 PM EDT Office [place] [phone] Juanpablo Hernandez MD [facility] OPHTHALMOLOGY [place], [place] [phone] 10/21/2024 9:30 AM EDT Office Visit Internal Medicine at [address] [phone] Daryn Garrett MD [facility] DR LILI WALKER - [place] [address] 01/30/2025 1:30 PM EDT Laboratory Appointment Lab at [facility] Hematology Oncology [address] [place] [phone] 01/30/2025 3:[address] [place] [address] Arturo Cordero MD [facility] HEMATOLOGY [place] [address] 01/30/2025 4:15 PM EDT Office Visit Hematology [place] [address] Arturo Cordero MD [facility] DR HEMATOLOGY [place] [address] Scheduled Procedures Name Priority Associated Diagnoses Date/Ti me EGD, UPPER GI ENDOSCOPY (WRVU 2.09) Irritable bowel syndrome with constipation 08/29/2024 1:00 PM EST COLONOSCOPY, DIAGNOSTIC (WRVU 3.26) Irritable bowel syndrome with constipation 08/29/2024 1:00 PM EST documented as of this encounter Visit Diagnoses Not on filedocumented in this encounter Care Teams Security Operations Analyst Relationship Specialty Start Date End Date Rodney Padilla MD PCP - General 07/18/22 04/09/24 documented as of this encounter
--- OUTSIDE RECORDS SUMMARY | 2024-08-20 15:50 | XMS_ITS | Encounter Summary ---
Author Organization [facility] [place] [address] Care Team Providers Care Flight Operations Engineer Name Role Phone Rodney Padilla MD Primary Care Provider Encounter Details Date Type Department Care Team (Latest Contact Info) Description 03/20/2024 11:00 AM EDT Laboratory Appointment Lab at [facility] [address] [place] [address] Type 2 diabetes mellitus without [...] 1:00 PM EST Hospital Encounter Gastroenterology at [place] [phone] Roland Gooden MD [facility] [place] [address] 08/29/2024 1:00 PM EST - 08/29/2024 2:00 PM EST Surgery Gastroenterology at [place] [phone] Roland Gooden MD [facility] [place] [address] EGD, UPPER GI ENDOSCOPY (WRVU 2.09) 10/02/2024 1:00 PM EDT Office Visit Ophthalmology at [place] [phone] Juanpablo Hernandez MD [facility] [place] [address] 10/21/2024 9:30 AM EDT Office Visit Internal Medicine at [facility] [address] [place] [phone] Daryn Garrett MD [facility] DR LILI WALKER - [place] [address] 01/30/2025 1:30 PM EDT Laboratory Appointment Lab at [facility] Hematology Oncology [address] [place] [phone] 01/30/2025 3:[address] [place] [place] [phone] Arturo Cordero MD [facility] DR HEMATOLOGY [place] [address] 01/30/2025 4:15 PM EDT Office Visit [place]ology [place] [address] Arturo Cordero MD [facility] DR HEMATOLOGY [place] [address] Scheduled Procedures Name Priority Associated Diagnoses Date/Ti [...] - 5.6 % 03/20/2024 2:06 PM EDT [facility] Comment: Per ADA guidelines, without [...] red blood cell turnover may not be internet sales representative of glycemic control. Reference Interval: 4.3 - 5.6% 5.7 - 6.4%: Consistent with prediabetes >=6.5%: Consistent with diagnosis of diabetes mellitus Estimated Average Glucose 174 mg/dL 03/20/2024 2:06 PM EDT [facility] Blood VENOUS BLOOD SPECIMEN / Unknown Venipuncture / Unknown 03/20/2024 11:05 AM EDT 03/20/2024 11:05 AM EDT Rodney Padilla MD CHEMISTRY ORDERABLE S [facility] [place] [address] documented in this encounter Visit Diagnoses Diagnosis Type 2 diabetes mellitus without long-term current use of insulin Irritable bowel syndrome with constipation Irritable bowel syndrome documented in this encounter Care Teams Flight Operations Engineer Relationship Specialty Start Date End Date Rodney Padilla MD PCP - General 07/18/22 04/09/24 documented as of this encounter
--- OUTSIDE RECORDS SUMMARY | 2024-08-20 15:50 | XMS_ITS | Encounter Summary ---
Author Organization [facility] Address [facility] [place] [address] Care Team Providers Care Metal Riveting Machine Operator Name Role Phone Rodney Padilla [...] 1:00 PM EST Hospital Encounter [place] [address] [facility] [place] [address] 08/29/2024 1:00 PM EST - 08/29/2024 2:00 PM EST Surgery [place] [phone] [facility] [place] [address] EGD, UPPER GI ENDOSCOPY (WRVU 2.09) 10/02/2024 1:00 PM EDT Office [place] [phone] [facility] [place] [address] 10/21/2024 9:30 AM EDT Office Visit Internal Medicine at [facility] [address] [place] [phone] Daryn Garrett MD [facility] DR [place]I [place] [address] 01/30/2025 1:30 PM EDT Laboratory Appointment Lab at [facility] [place] Hematology Oncology [address] [place], [place] [phone] 01/30/2025 3:[address] Scan [place] [phone] [facility] [place] [address] 01/30/2025 4:15 PM EDT Office Visit Hematology [place] [phone] [facility] [place] [address] Scheduled Procedures Name Priority Associated Diagnoses Date/Ti me EGD, UPPER GI ENDOSCOPY (WRVU 2.09) Irritable bowel syndrome with constipation 08/29/2024 1:00 PM EST COLONOSCOPY, DIAGNOSTIC (WRVU 3.26) Irritable bowel syndrome with constipation 08/29/2024 1:00 PM EST documented as of this encounter Visit Diagnoses Not on filedocumented in this encounter Care Teams Metal Riveting Machine Operator Relationship Specialty Start Date End Date Rodney Padilla MD PCP - General 07/18/22 04/09/24 documented as of this encounter
--- OUTSIDE RECORDS SUMMARY | 2024-08-20 15:50 | XMS_ITS | Encounter Summary ---
Author Organization [facility] [place] [address] Care Team Providers Care Rubber Belt Splicer Name Role Phone Rodney Padilla MD Primary Care Provider Reason for Referral * Diagnostic Test (Routine) - Pending Review Specialty Diagnoses / Procedures Referred By Contac t Referred To Contact Radiology Diagnoses Malignant melanoma of conjunctiva, left Procedures CT Neck Soft Tissue w Contrast (Generic) Arturo Cordero MD [facility] DR HEMATOLOGY [place] [address] [facility] [place] [address] Referral ID Status Reason Start Date Expiration Date Visits Requested Visits Authorized [id number] Pending Review Specialty Service Requested 02/02/2024 08/04/2025 1 1 * Diagnostic Test (Routine) - Pending Review Specialty Diagnoses / Procedures Referred By Contchrissy t Referred To Contact Radiology Diagnoses Lung nodule Renal cell cancer, left Procedures CT Chest Abdomen Pelvis w Contrast (Generic) Arturo Cordero MD [facility] DR HEMATOLOGY [place] [address] [facility] [place] [address] Referral ID Status Reason Start Date Expiration Date Visits Requested Visits Authorized [id number] Pending Review Specialty Service Requested 02/02/2024 08/04/2025 1 1 Reason for Visit * Reason Comments Follow-up Encounter Details Date Type Department Care Team (Cornelius st Contact Info) Description 02/01/2024 11:15 AM EDT Office Visit [place]ology [place] [address] Arturo Cordero MD [facility] DR HEMATOLOGY [place] [address] Malika Luna APRN [facility] [place] [address] Malignant melanoma of conjunctiva, left (Primary Dx); [...] the original note were not included. [facility] NOTE REFERING PHYSICIAN: Dr. Juanpablo Hernandez [...] management - fall 2018: saw a new lawn mower operator and was referred to Dr. 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 Medina - 03/31/2020: saw her lawn mower operator Dr. 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 [...] 1:00 PM EST Hospital [place] [address] Roland Gooden MD [facility] [place] [address] 08/29/2024 1:00 PM EST - 08/29/2024 2:00 PM EST [place] [address] Roland Gooden MD [facility] [place] [address] EGD, UPPER GI ENDOSCOPY (WRVU 2.09) 10/02/2024 1:00 PM EDT Office Visit Ophthalmology at [place] [phone] Juanpablo Hernandez MD [facility] [place] [address] 10/21/2024 9:30 AM EDT Office Visit Internal Medicine at [address] [place] [phone] Daryn Garrett MD [facility] DR LILI WALKER - PRIMARY CARE [place] [phone] 01/30/2025 1:30 PM EDT Laboratory Appointment Lab at [facility] [place]ology Oncology [address] [place], [place] [phone] 01/30/2025 3:[address] Scan at [place] [phone] Arturo Cordero MD [facility] [place] [address] 01/30/2025 4:15 PM EDT Office Visit Hematology and Oncology at [place] [phone] Arturo Cordero MD [facility] [place] [address] Scheduled Orders Name Type Priority Associated Diagnoses [...] Solitary pulmonary nodule Renal cell cancer, left Irritable bowel syndrome with constipation Irritable bowel syndrome documented in this encounter Care Teams Rubber Belt Splicer Relationship Specialty Start Date End Date Rodney Padilla MD PCP - General 07/18/22 04/09/24 documented as of this encounter
--- OUTSIDE RECORDS SUMMARY | 2024-08-20 15:50 | XMS_ITS | Encounter Summary ---
Author Organization [facility] [place] [address] Care Team Providers Care Film Or Videotape Editor Name Role Phone Rodney Padilla MD Primary Care Provider Reason for Visit * Reason Comments Medication Refill Encounter Details Date Type Department Care Team (Late st Contact Info) Description 04/08/2024 Refill Family Medicine at [facility] [address] [place] [address] Rodney Padilla MD [address] [place] [address] [place] [address] Social History Tobacco Use Types [...] 12:52 PM EDT Spoke to Yashira at [employer] who states that the patient does have refills for the Plavix documented in this encounter Plan of Treatment Upcoming Encounters Date Type Department Care Team (Latest Contact Info) Description 08/29/2024 1:00 PM EST Hospital En[place] [address] Roland Gooden MD [facility] [place] [address] 08/29/2024 1:00 PM EST - 08/29/2024 2:00 PM EST [place] [address] Roland Gooden MD [facility] [place] [address] EGD, UPPER GI ENDOSCOPY (WRVU 2.09) 10/02/2024 1:00 PM EDT Office Visit Ophthalmology at [place] [phone] Juanpablo Hernandez MD [facility] [place] [address] 10/21/2024 9:30 AM EDT Office Visit Internal Medicine at [address] [place] [phone] Daryn Garrett MD [facility] DR LILI [place] [address] 01/30/2025 1:30 PM EDT Laboratory Appointment Lab at [facility] Hematology Oncology [address] [place] [phone] 01/30/2025 3:[address] Scan at [place] [phone] Arturo Cordero MD [facility] [place] [address] 01/30/2025 4:15 PM EDT Office Visit Hematology [place] [phone] Arturo Cordero MD [facility] [place] [address] Scheduled Procedures Name Priority Associated Diagnoses Date/Ti vt EGD, UPPER GI ENDOSCOPY (WRVU 2.09) Irritable bowel syndrome with constipation 08/29/2024 1:00 PM EST COLONOSCOPY, DIAGNOSTIC (WRVU 3.26) Irritable bowel syndrome with constipation 08/29/2024 1:00 PM EST documented as of this encounter Visit Diagnoses Not on filedocumented in this encounter Care Teams Film Or Videotape Editor Relationship Specialty Start Date End Date Rodney Padilla MD PCP - General 07/18/22 04/09/24 documented as of this encounter
--- OUTSIDE RECORDS SUMMARY | 2024-08-20 15:51 | XMS_ITS | Encounter Summary ---
Author Organization [facility] [place] [address] Care Team Providers Care Assisted Living Director Name Role Phone Rodney Padilla MD Primary Care Provider Reason for Visit * Reason Comments Diabetes Encounter Details Date Type Department Care Team (Late st Contact Info) Description 10/27/2023 9:45 AM EDT TH Visit (TeleHealth) Family Medicine at [facility] [address] [place] [phone] Julia Low, [facility] Type 2 [...] (health, money, job, social) Living/housing situation and manager assurance Barriers Identified: Per Patient reports that after [...] are performed regularly. 1-2 x daily. Uses [employer] testing supplies Interested in Dexcom G7, report approved by insurance. Received Dexcom G7 CGM through [employer]. Has not set up Offered clinic appt to set up but pt declined as she will not be in the area for a month but she agrees to reach out to local nurse recruiter who assisted her in the past Before [...] 186 191 176 Daily Avg 152 eA1c [id number] Prior Averages: 08/26/21 09/09/21 09/24/21 11/14/21 11/03/22 12/01/22 01/03/23 08/18/23 Daily Avg 157 168 131 138 175 153 176 211 eA1c 8.80863 8.46 7.20 7.44 8.7 7.95 8.75 9.96 [...] or during use. 100 each 3 fluticasone etjkaxk-iriycvcrherq-uxmdnxfpvw (Trelegy Ellipta) 200-62.5-25 mcg Inhale 1 puff into the lungs daily. Rinse mouth after use 1 each 11 fluticasone propionate (Flonase) 50 mcg/actuation [place], Suspension SPRAY 1 SPRAY IN EACH NOSTRIL TWO TIMES A DAY 48 mL 3 lamoTRIgine (LaMICtal) 150 mg tablet Take 150 mg by mouth Daily at Noon. simvastatin (Zocor) 10 mg tablet TAKE ONE TABLET BY MOUTH EVERY DAY 90 tablet 1 Blood-Glucose Meter,Continuous (Dexcom G7 Surface Ship Usw Supervisor) Misc 1 Device by [facility]Non- Drug; Combo Route) route continuous. Blood-Glucose Sensor [...] mL 11 inhalational spacing device (Hesham Aerosol [place] Enhancer) Spacer 1 each by Misc.(Non-Drug; Combo [...] 1:00 PM EST Hospital En[place] [phone] Roland Gooden MD [facility] [place] [address] 08/29/2024 1:00 PM EST - 08/29/2024 2:00 PM EST [place] [phone] Roland Gooden MD [facility] [place] [address] EGD, UPPER GI ENDOSCOPY (WRVU 2.09) 10/02/2024 1:00 PM EDT Office [place] [phone] Juanpablo Hernandez MD [facility] [place] [address] 10/21/2024 9:30 AM EDT Office Visit Internal Medicine at [facility] [address] [place] [address] Daryn Garrett MD [facility] DR LILI WALKER [place] [address] 01/30/2025 1:30 PM EDT Laboratory Appointment Lab at [facility] Hematology Oncology [address] [place] [phone] 01/30/2025 3:[address] [place] [phone] Arturo Cordero MD [facility] DR HEMATOLOGY [place] [address] 01/30/2025 4:15 PM EDT Office Visit Hematology [place] [phone] Arturo Cordero MD [facility] DR HEMATOLOGY [place] [address] Scheduled Procedures Name Priority Associated Diagnoses Date/Ti [...] syndrome documented in this encounter Care Teams Assisted Living Director Relationship Specialty Start Date End Date Rodney Padilla MD PCP - General 07/18/22 04/09/24 documented as of this encounter
--- OUTSIDE RECORDS SUMMARY | 2024-08-20 15:51 | XMS_ITS | Encounter Summary ---
Author Organization [facility] Address [facility] [place] [address] Care Team Providers Care Senior Business Architect Name Role Phone Rodney Padilla MD Primary Care Provider [phone] Encounter Details Date Type Department Care Team [...] 1:00 PM EST Hospital Encounter [place] [address] Roland Gooden MD [facility] [place] [address] 08/29/2024 1:00 PM EST - 08/29/2024 2:00 PM EST [place] [phone] Roland Gooden MD [facility] [place] [address] EGD, UPPER GI ENDOSCOPY (WRVU 2.09) 10/02/2024 1:00 PM EDT Office [place] [phone] Juanpablo Hernandez MD [facility] [place] [address] 10/21/2024 9:30 AM EDT Office Visit Internal Medicine at [facility] [address] [place] [phone] Daryn Garrett MD [facility] DR LILI [place] [address] 01/30/2025 1:30 PM EDT Laboratory Appointment Lab at [facility] Hematology Oncology [address] [place], [place] [phone] 01/30/2025 3:[address] Scan at [place] [phone] Arturo Cordero MD [facility] [place] [address] 01/30/2025 4:15 PM EDT Office Visit Hematology and Oncology at [place] [phone] Arturo Cordero MD [facility] DR [place] [address] Scheduled Procedures Name Priority Associated Diagnoses Date/Ti me EGD, UPPER GI ENDOSCOPY (WRVU 2.09) Irritable bowel syndrome with constipation 08/29/2024 1:00 PM EST COLONOSCOPY, DIAGNOSTIC (WRVU 3.26) Irritable bowel syndrome with constipation 08/29/2024 1:00 PM EST documented as of this encounter Visit Diagnoses Not on filedocumented in this encounter Care Teams Senior Business Architect Relationship Specialty Start Date End Date Rodney Padilla MD PCP - General 07/18/22 04/09/24 documented as of this encounter
--- OUTSIDE RECORDS SUMMARY | 2024-08-20 15:51 | XMS_ITS | Encounter Summary ---
Author Organization [facility] Address [place] [address] Care Team Providers Care Tissue Recovery Technician Name Role Phone Rodney Padilla MD Primary Care Provider Reason for Visit * Reason Comments Follow-up Abdominal discomfort Encounter Details Date Type Department Care Team (Latest Contact Info) Description 09/19/2023 10:30 AM EDT Office Visit Family Medicine at [facility] [address] [place] [address] Rodney Padilla MD [address] [place] [address] [facility] [address] Severe obesity; Chronic obstructive pulmonary disease, unspecified COPD type; Bipolar affective disorder in remission; Adrenal mass; Diabetic polyneuropathy associated with type 2 diabetes mellitus; 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 (Patient not taking: Reported on 08/29/2023) Blood-Glucose Sensor (Dexcom G7 Sensor) Device 1 Device by [facility].(Non-Drug; Combo Route) route every10 days. (Patient [...] each 3 inhalational spacing device (Hesham Aerosol [place] Enhancer) Spacer 1 each by Misc.(Non-Drug; Combo [...] tablet 5 fluticasone propionate (Flonase) 50 mcg/actuation [place], Suspension 1 spray by Each Nare route [...] patient/family/caregiver Referring and communicating with other health career advisor Documenting clinical information in the electronic or other health record Independently interpreting results Care coordination documented in this encounter Plan of Treatment Upcoming Encounters Date Type Department Care Team (Latest Contact Info) Description 08/29/2024 1:00 PM [facility] Hospital Encounter [place] [phone] Roland Gooden MD [facility] [place] [address] 08/29/2024 1:00 PM EST - 08/29/2024 2:00 PM EST Surgery Gastroenterology at [address] Roland Gooden MD [facility] [place] [address] EGD, UPPER GI ENDOSCOPY (WRVU 2.09) 10/02/2024 1:00 PM EDT Office [place] [address] Juanpablo Hrenandez MD [facility] [place] [address] 10/21/2024 9:30 AM EDT Office Visit Internal Medicine at [address] [phone] Daryn Garrett MD [facility] DR LILI [place] [address] 01/30/2025 1:30 PM EDT Laboratory Appointment Lab at [facility] Hematology Oncology [address] [place], [place] [phone] 01/30/2025 3:[address] Scan at [place] [phone] Arturo Cordero MD [facility] [place] [address] 01/30/2025 4:15 PM EDT Office Visit Hematology and Oncology at [place] [phone] Arturo Cordero MD [facility] HEMATOLOGY AND ONCOLOGY [place] [phone] Scheduled Procedures Name Priority Associated Diagnoses Date/Ti me EGD, UPPER GI ENDOSCOPY (WRVU 2.09) Irritable bowel syndrome with constipation 08/29/2024 1:00 PM EST COLONOSCOPY, DIAGNOSTIC (WRVU 3.26) Irritable bowel syndrome with constipation 08/29/2024 1:00 PM EST documented as of this encounter Results * (ABNORMAL) Hemoglobin A1c (09/19/2023 11:24 AM EDT) Hemoglobin A1c 9.2(H) 4.3 - 5.6 % [facility] Comment: Reference Range: 4.3 - [...] Mellitus, Diabetes Care 2013; 36: Suppl. 1, S67-14 Estimated Average Glucose 217 mg/dL [facility] Blood 09/19/2023 11:2 4 AM EDT 09/19/2023 1:14 PM EDT Narrative Resulting Agency Comment Spec In Lab Rodney Padilla MD CHEMISTRY ORDERABLE S [facility] [place] [address] documented in this encounter Visit Diagnoses Diagnosis Severe obesity Morbid obesity Chronic obstructive pulmonary disease, unspecified COPD type Bipolar affective disorder in remission Adrenal mass Unspecified disorder of adrenal glands Diabetic polyneuropathy associated with type 2 diabetes mellitus 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
--- OUTSIDE RECORDS SUMMARY | 2024-08-20 15:51 | XMS_ITS | Encounter Summary ---
Author Organization [facility] [place] [address] Care Team Providers Care Wood Panel Inspector Name Role Phone Rodney Padilla MD Primary Care Provider Encounter Details Date Type Department Care Team (Late st Contact Info) Description 08/11/2023 Orders Only Hematology [place] [address] Arturo Cordero MD [facility] DR [place] [address] Social History Tobacco Use Types Packs/Day Years [...] 1:00 PM EST Hospital Encounter Gastroenterology at [place] [phone] Roland Gooden MD [facility] [place] [address] 08/29/2024 1:00 PM EST - 08/29/2024 2:00 PM EST Surgery [place] [phone] Roland Gooden MD [facility] [place] [address] EGD, UPPER GI ENDOSCOPY (WRVU 2.09) 10/02/2024 1:00 PM EDT Office Visit Ophthalmology at [place] [phone] Juanpablo Hernandez MD [facility] [place] [address] 10/21/2024 9:30 AM EDT Office Visit Internal Medicine at [facility] [address] [place] [address] Daryn Garrett MD [facility] DR LILI [place] [address] 01/30/2025 1:30 PM EDT Laboratory Appointment Lab at [facility] Hematology Oncology [address] [place] [phone] 01/30/2025 3:[address] [place] [phone] Arturo Cordero MD [facility] DR [place] [address] 01/30/2025 4:15 PM EDT Office Visit Hematology [place] [address] Arturo Cordero MD [facility] DR [place] [address] Scheduled Procedures Name Priority Associated Diagnoses Date/Ti me EGD, UPPER GI ENDOSCOPY (WRVU 2.09) Irritable bowel syndrome with constipation 08/29/2024 1:00 PM EST COLONOSCOPY, DIAGNOSTIC (WRVU 3.26) Irritable bowel syndrome with constipation 08/29/2024 1:00 PM EST documented as of this encounter Visit Diagnoses Not on filedocumented in this encounter Care Teams Wood Panel Inspector Relationship Specialty Start Date End Date Rodney Padilla MD PCP - General 07/18/22 04/09/24 documented as of this encounter
--- OUTSIDE RECORDS SUMMARY | 2024-08-20 15:51 | XMS_ITS | Encounter Summary ---
Author Organization [facility] Address [facility] [place] [address] Care Team Providers Care Laundry Press Operator Name Role Phone Rodney Padilla [...] 1:00 PM EST Hospital Encounter [place] [address] Roland Gooden MD [facility] [place] [address] 08/29/2024 1:00 PM EST - 08/29/2024 2:00 PM EST Surgery [place] [phone] Roland Gooden MD [facility] [place] [address] EGD, UPPER GI ENDOSCOPY (WRVU 2.09) 10/02/2024 1:00 PM EDT Office [place] [phone] Juanpablo Hernandez MD [facility] [place] [address] 10/21/2024 9:30 AM EDT Office Visit Internal Medicine at [facility] [address] [place] [phone] Daryn Garrett MD [facility] DR LILI [place] [address] 01/30/2025 1:30 PM EDT Laboratory Appointment Lab at [facility] [place] Oncology [address] [place], [place] [phone] 01/30/2025 3:[address] Scan at [place] [phone] Arturo Cordero MD [facility] [place] [address] 01/30/2025 4:15 PM EDT Office Visit Hematology [place] [phone] Arturo Cordero MD [facility] DR [place] [address] Scheduled Procedures Name Priority Associated Diagnoses Date/Ti me EGD, UPPER GI ENDOSCOPY (WRVU 2.09) Irritable bowel syndrome with constipation 08/29/2024 1:00 PM EST COLONOSCOPY, DIAGNOSTIC (WRVU 3.26) Irritable bowel syndrome with constipation 08/29/2024 1:00 PM EST documented as of this encounter Visit Diagnoses Not on filedocumented in this encounter Care Teams Laundry Press Operator Relationship Specialty Start Date End Date Rodney Padilla MD PCP - General 07/18/22 04/09/24 documented as of this encounter
--- OUTSIDE RECORDS SUMMARY | 2024-08-20 15:51 | XMS_ITS | Encounter Summary ---
Author Organization [facility] [place] [address] Care Team Providers Care Inorganic Chemical Technician Name Role Phone Rodney Padilla MD Primary Care Provider Reason for Visit * Reason Comments Diabetes Encounter Details Date Type Department Care Team (Late st Contact Info) Description 08/18/2023 9:45 AM EST Clinical Support Family Medicine at [facility] [address] [place] [address] Julia Low, [facility] [...] Progress Notes * Julia Low [facility] - 08/18/2023 9:45 AM EST Clinical Pharmacist [...] Provider/date: Rodney Padilla MD 06/14/21 Tamera Khan CODING AND REIMBURSEMENT SPECIALIST Health Beliefs and Attitudes Feelings about having DM agitated and anxious Pt's original reasons for uncontrolled DM Knee pain Stress from finances Shoulder/neck pain Anxiety Depression The pt is in a contemplative stage of making changes to manage their diabetes Factors causing stress (health, money, job, social) Living/housing situation and section 8 property manager Barriers Identified: Per Patient reports [...] are performed sporadically. 3 x weekly. Uses [employer] testing supplies Interested in Dexcom G7, report approved by insurance. Needs to call [employer] [facility] to get an update on shipping Before Brkfast After Brkfast Before Lunch After Lunch Before Supper 5-b 260 6-Aug 260 167 7-Aug 218 217 212 8-Aug 177 192 185 9-Aug 219 AM PHI PM Average 205 205 260 219 167 Lowest 177 192 260 185 167 Highest 219 217 260 260 167 Daily Avg 211 eA1c 9.47712 Prior Averages: 08/26/21 09/09/21 09/24/21 11/14/21 11/03/22 12/01/22 01/03/23 Daily Avg 157 168 131 138 175 153 176 eA1c 8.45300 8.46 7.20 7.44 8.7 7.95 8.75 Acute [...] diabetes mellitus 3 mL 11 Blood-Glucose Sensor ([employer] G7 Sensor) Device 1 Device by [facility].(Non-Drug; Combo Route) route every10 days. 3 each 11 lamoTRIgine (LaMICtal) 100 mg tablet Take 1.5 tablets by mouth daily. 90 tablet 3 umeclidinium-vilanteroL (Anoro Ellipta) 62.5-25 mcg/actuation Disk with Device Inhale 1 Inhalation into the lungs daily. 3 each 3 inhalational spacing device (Hesham Aerosol [place] Enhancer) Spacer 1 each by [facility].(Non-Drug; Combo Route) route as needed. 1 each [...] tablet 5 fluticasone propionate (Flonase) 50 mcg/actuation [place], Suspension 1 spray by [...] of insulin - Blood-Glucose Meter,Continuous (Dexcom G7 Submarine Diver) Misc; 1 Device by Misc.(Non-Drug; Combo Route) [...] 1:00 PM EST Hospital Encounter [place] [phone] Roland Gooden MD [facility] [place] [address] 08/29/2024 1:00 PM EST - 08/29/2024 2:00 PM EST Surgery Gastroenterology at [place] [phone] Roland Gooden MD [facility] [place] [address] EGD, UPPER GI ENDOSCOPY (WRVU 2.09) 10/02/2024 1:00 PM EDT Office [place] [phone] Juanpablo Hernandez MD [facility] [place] [address] 10/21/2024 9:30 AM EDT Office Visit Internal Medicine at [facility] [address] [place] [address] Daryn Garrett MD [facility] DR LILI [place] [address] 01/30/2025 1:30 PM EDT Laboratory Appointment Lab at [facility] Hematology Oncology [address] [place] [phone] 01/30/2025 3:[address] [place] [phone] Arturo Cordero MD [facility] DR [place] [address] 01/30/2025 4:15 PM EDT Office Visit Hematology [place] [address] Arturo Cordero MD [facility] [place] [address] Scheduled Procedures Name Priority Associated Diagnoses Date/Ti [...] syndrome documented in this encounter Care Teams Inorganic Chemical Technician Relationship Specialty Start Date End Date Rodney Padilla MD PCP - General 07/18/22 04/09/24 documented as of this encounter
--- OUTSIDE RECORDS SUMMARY | 2024-08-20 15:51 | XMS_ITS | Encounter Summary ---
Author Organization [facility] [place] [address] Care Team Providers Care Agricultural Extension Officer Name Role Phone Rodney Padilla MD Primary Care Provider Reason for Visit * Reason Comments Medication Refill Encounter Details Date Type Department Care Team (Late st Contact Info) Description 09/25/2023 Refill Family Medicine at [facility] [address] [place] [address] Rodney Padilla MD [address] [place] [address] [place] [address] Social History Tobacco Use Types [...] Disp Refills fluticasone propionate (Flonase) 50 mcg/actuation [place], Suspension [Pharmacy Med Name: FLUTICASONEPROP 50 MCG [...] 1:00 PM EST Hospital Encounter [place] [phone] Roland Gooden MD [facility] [place] [address] 08/29/2024 1:00 PM EST - 08/29/2024 2:00 PM EST Surgery Gastroenterology at [place] [phone] Roland Gooden MD [facility] [place] [address] EGD, UPPER GI ENDOSCOPY (WRVU 2.09) 10/02/2024 1:00 PM EDT Office Visit [place] [phone] Juanpablo Hernandez MD [facility] [place] [address] 10/21/2024 9:30 AM EDT Office Visit Internal Medicine at [address] [phone] Daryn Garrett MD [facility] DR LILI [place] [address] 01/30/2025 1:30 PM EDT Laboratory Appointment Lab at [facility] Hematology Oncology [address] [place] [phone] 01/30/2025 3:[address] [place] [address] Arturo Cordero MD [facility] [place] [address] 01/30/2025 4:15 PM EDT Office Visit Hematology [place] [address] Arturo Cordero MD [facility] [place] [address] Scheduled Procedures Name Priority Associated Diagnoses Date/Ti me EGD, UPPER GI ENDOSCOPY (WRVU 2.09) Irritable bowel syndrome with constipation 08/29/2024 1:00 PM EST COLONOSCOPY, DIAGNOSTIC (WRVU 3.26) Irritable bowel syndrome with constipation 08/29/2024 1:00 PM EST documented as of this encounter Visit Diagnoses Not on filedocumented in this encounter Care Teams Agricultural Extension Officer Relationship Specialty Start Date End Date Rodney Padilla MD PCP - General 07/18/22 04/09/24 documented as of this encounter
--- OUTSIDE RECORDS SUMMARY | 2024-08-20 15:51 | XMS_ITS | Encounter Summary ---
Author Organization [facility] [place] [address] Care Team Providers Care Baby Sitter Name Role Phone Rodney Padilla MD Primary Care Provider Encounter Details Date Type Department Care Team (Late st Contact Info) Description 08/10/2023 Telephone Family Medicine at [facility] [address] [place] [phone] Rodney Padilla MD [address] [facility] [place] [address] Social History Tobacco Use Types Packs/Day [...] Patient identified by Full Name and with [facility]ated [facility] staff. Provided update that this RN would be faxing Clinic Notes documenting information they requested about patient's insulin. Previously given fax number [phone] in this message not correct when attempted to confirm withstaff. New fax number given = [phone]. Requested Clinic Notes faxed to new fax number. Reference Number = [id number] * Telephone Encounter - Ade Irene - 08/10/2023 3:02 PM EST Maryana with [facility] [employer] calling in looking for an update on this. Please call back to discuss. * Telephone Encounter - Jade Kruse MA - 08/10/2023 12:33 PM EST Copied from [facility] #[id number]. Topic: Generic Non-Symptom Based - Generic Call >> Aug 08, 2023 1:00 PM Kalie Stnoe wrote: Reason: DME PCP: RODNEY PADILLA Reason for Call: [employer] medical equipment sent request on 08/04 for notes to document patient using insulin, needs an addendum sent stating she uses Lantus Solostar U-100 Insulin 100 unit/mL (3 mL) pen needs more than just a medication list needs it to be in the notes, can be faxed back to fax # [phone] documented in this encounter Plan of Treatment Upcoming Encounters Date Type Department Care Team (Latest Contact Info) Description 08/29/2024 1:00 PM EST Hospital Encounter [place] [phone] Roland Gooden MD [facility] [place] [address] 08/29/2024 1:00 PM EST - 08/29/2024 2:00 PM EST Surgery [place] [phone] Roland Gooden MD [facility] [place] [address] EGD, UPPER GI ENDOSCOPY (WRVU 2.09) 10/02/2024 1:00 PM EDT Office [place] [phone] Juanpablo Hernandez MD [facility] [place] [address] 10/21/2024 9:30 AM EDT Office Visit Internal Medicine at [place] [address] [place] [address] Daryn Garrett MD [facility] DR LILI W[place]ER [place] [address] 01/30/2025 1:30 PM EDT Laboratory Appointment Lab at [facility] Hematology Oncology [address] [place], [place] [phone] 01/30/2025 3:[address] Scan at [place] [phone] Arturo Cordero MD [facility] HEMATOLOGY [place] [address] 01/30/2025 4:15 PM EDT Office Visit Hematology [place] [phone] Arutro Cordero MD [facility] DR HEMATOLOGY [place] [address] Scheduled Procedures Name Priority Associated Diagnoses Date/Ti [...] syndrome documented in this encounter Care Teams Baby Sitter Relationship Specialty Start Date End Date Rodney Padilla MD PCP - General 07/18/22 04/09/24 documented as of this encounter
--- OUTSIDE RECORDS SUMMARY | 2024-08-20 15:51 | XMS_ITS | Encounter Summary ---
Author Organization [facility] Address [address] [place] [address] Care Team Providers Care Anthropology Lecturer Name Role Phone Rodney Padilla MD Primary Care Provider Reason for Visit * Reason Comments Diabetes Encounter Details Date Type Department Care Team (Late st Contact Info) Description 01/01/2024 11:00 AM EDT TH Visit (TeleHealth) Family Medicine at [facility] [address] [place] [phone] Julia Low, [facility] Type 2 [...] of this encounter Progress Notes * Julia Lwo [facility] - 01/01/2024 11:00 AM EDT Images from [...] any of the following conditions: Yes [x] [place]/Stroke/CAD [] Retinopathy [] CHF [x] Neuropathy [] [...] - asa 81 mg and clopidogrel -Uses [facility] -Prefers oral therapies to injections but [...] performed regularly using Dexcom CGM G7 Uses [employer] testing supplies Interested in Dexcom G7, report approved by insurance. Received Dexcom G7 CGM through [employer]. Has not set up Prior Averages: 08/26/21 09/09/21 09/24/21 11/14/21 11/03/22 12/01/22 01/03/23 08/18/23 10/26/23 Daily Avg 157 168 131 138 175 153 176 211 152 eA1c 8.33931 8.46 7.20 7.44 8.7 7.95 8.75 9.96 [...] or during use. 100 each 3 fluticasone zfymzlw-fxdseqkdokpg-wfciwfklci (Trelegy Ellipta) 200-62.5-25 mcg Inhale 1 puff into the lungs daily. Rinse mouth after use 1 each 11 fluticasone propionate (Flonase) 50 mcg/actuation [place], Suspension SPRAY 1 SPRAY IN EACH NOSTRIL TWO TIMES A DAY 48 mL 3 lamoTRIgine (LaMICtal) 150 mg tablet Take 150 mg by mouth Daily at Noon. simvastatin (Zocor) 10 mg tablet TAKE ONE TABLET BY MOUTH EVERY DAY 90 tablet 1 Blood-Glucose Meter,Continuous (Dexcom G7 Supervisor Beam Department) Misc 1 Device by Mis.(Non- Drug; Combo Route) route continuous. Blood-Glucose Sensor (Dexcom G7 Sensor) Device 1 Device by Misc.(Non-Drug; Combo Route) route every10 days. 3 each 11 Lantus Solostar U-100 Insulin 100 unit/mL (3 mL) pen Inject 18 Units subcutaneously nightly. Inject2-20 units based on BG Indications: type 2 diabetes mellitus inhalational spacing device (Hesham Aerosol [place] Enhancer) Spacer 1 each by Misc.(Non-Drug; Combo [...] provider review and follow up. Julia Low, [facility] 01/01/24 Total time spent: 45 minutes documented in this encounter Plan of Treatment Upcoming Encounters Date Type Department Care Team (Latest Contact Info) Description 08/29/2024 1:00 PM EST Hospital Encounter [place] [phone] Roland Gooden MD [facility] [place] [address] 08/29/2024 1:00 PM EST - 08/29/2024 2:00 PM EST [place] [phone] Roland Gooden MD [facility] [place] [address] EGD, UPPER GI ENDOSCOPY (WRVU 2.09) 10/02/2024 1:00 PM EDT Office [place] [address] Juanpablo Hernandez MD [facility] [place] [address] 10/21/2024 9:30 AM EDT Office Visit Internal Medicine at [address] [phone] Daryn Garrett MD [facility] DR LILI WALKER [place] [address] 01/30/2025 1:30 PM EDT Laboratory Appointment Lab at [facility] Hematology Oncology [address] [place] [phone] 01/30/2025 3:[address] [place] [address] Arturo Cordero MD [facility] DR HEMATOLOGY [place] [address] 01/30/2025 4:15 PM EDT Office Visit Hematology and Oncology at [facility] [place] [address] Arturo Cordero MD [facility] DR HEMATOLOGY [place] [address] Scheduled Procedures Name Priority Associated Diagnoses Date/Ti [...] syndrome documented in this encounter Care Teams Anthropology Lecturer Relationship Specialty Start Date End Date Rodney Padilla MD PCP - General 07/18/22 04/09/24 documented as of this encounter
--- OUTSIDE RECORDS SUMMARY | 2024-08-20 15:51 | XMS_ITS | Encounter Summary ---
Author Organization [facility] [place] [address] Care Team Providers Care District Recruiter Name Role Phone Rodney Padilla MD Primary Care Provider Reason for Referral * Diagnostic Test (Routine) - Closed Specialty Diagnoses / Procedures Referred By Contac t Referred To Contact Radiology Diagnoses Malignant melanoma of conjunctiva, left Procedures CT Neck Soft Tissue w Contrast (Generic) Arturo Cordero MD [facility] DR [place] [address] [facility] [place] [address] Referral ID Status Reason Start Date Expiration Date V isits Requested Visits Authorized [id number] Closed Specialty Service Requested 12/29/2022 06/30/2024 1 1 * Diagnostic Test (Routine) - Closed Specialty Diagnoses / Procedures Referred By Contac t Referred To Contact Radiology Diagnoses Malignant melanoma of conjunctiva, left Renal cell cancer, left Procedures CT Chest Abdomen Pelvis w Contrast (Generic) Arturo Cordero MD [facility] DR HEMAT[place]Y [place] [address] [facility] [place] [address] Referral ID Status Reason Start Date Expiration Date V isits Requested Visits Authorized [id number] Closed Specialty Service Requested 12/29/2022 06/30/2024 1 1 Reason for Visit * Diagnostic Test (Routine) - Closed Specialty Diagnoses / Procedures Referred By Contac t Referred To Contact Radiology Diagnoses Malignant melanoma of conjunctiva, left Renal cell cancer, left Procedures CT Chest Abdomen Pelvis w Contrast (Generic) Arturo Cordero MD [facility] DR HEM[place] [address] [facility] [place] [address] Referral ID Status Reason Start Date Expiration Date V isits Requested Visits Authorized [id number] Closed Specialty Service Requested 12/29/2022 06/30/2024 1 1 Encounter Details Date Type Department Care Team (Latest Contact Info) Description 08/03/2023 7:35 AM EST - 08/03/2023 7:44 AM EST Hospital [place] [address] Arturo Cordero MD [facility] DR HEM[place]OLOG[place] [address] Malignant melanoma of conjunctiva, left; [...] End Date inhalational spacing device (Hesham Aerosol [place] Enhancer) SpacerIndications:Chr onic obstructive pulmonary disease, unspecified [...] 81 mg by mouth daily. Blood-Glucose Sensor (Zilyo G7 Sensor) DeviceIndications:Typ e 2 diabetes mellitus [...] lungs daily. 3 each 3 06/20/2023 10/24/2023 lamoTRIgine (LaMICtal) 25 mg tabletIndications:bip olar disorder [...] 09/26/2022 09/19/2023 fluticasone propionate (Flonase) 50 mcg/actuation [place], Suspension 1 spray by Each Nare route [...] 1:00 PM EST Hospital En[place] [address] Roland Gooden MD [facility] [place] [address] 08/29/2024 1:00 PM EST - 08/29/2024 2:00 PM EST [place] [address] Roland Gooden MD [facility] [place] [address] EGD, UPPER GI ENDOSCOPY (WRVU 2.09) 10/02/2024 1:00 PM EDT Office [place] [address] Juanpablo Hernandez MD [facility] [place] [address] 10/21/2024 9:30 AM EDT Office Visit Internal Medicine at [address] [phone] Daryn Garrett MD [facility] DR LILI [place] [address] 01/30/2025 1:30 PM EDT Laboratory Appointment Lab at [facility] Hematology Oncology [address] [place] [phone] 01/30/2025 3:[address] [place] [address] Arturo Cordero MD [facility] DR HEM[place] [address] 01/30/2025 4:15 PM EDT Office Visit [place]ology [place] [address] Arturo Cordero MD [facility] DR [place] [address] Scheduled Procedures Name Priority Associated Diagnoses Date/Ti [...] who have questions please contact the health childbirth and infant care teacher that requested your imaging first. ? Electronically signed by: HIMANSHU Wiley [facility] ([phone]), at 08/04/2023 9:11 AM Narrative 08/04/2023 9:11 [...] The orbits are not included within the fxffl-kb-wxog. No masses along the visualized upper aerodigestive [...] The orbits are not included within the gpnhc-mv-zwww. No masses alongthe visualized upper aerodigestive tract. [...] patients who have questions please contactthe health childbirth and infant care teacher that requested your imaging first. Electronically signed by: HIMANSHU Wiley [facility]([phone]), at 08/04/2023 9:11 AM Arturo Cordero MD [...] who have questions please contact the health childbirth and infant care teacher that requested your imaging first. ? Electronically signed by: Zain Izaguirre MD, [facility] ([phone]), at 08/03/2023 4:55 PM Narrative 08/03/2023 4:55 [...] patients who have questions please contactthe health childbirth and infant care teacher that requested your imaging first. Electronically signed by: Zain Izaguirre MD, [facility]([phone]), at 08/03/2023 4:55 PM Arturo Cordero MD IMG CT ORDERABLES documented in this encounter Visit Diagnoses Diagnosis Malignant melanoma of conjunctiva, left Renal cell cancer, left Irritable bowel syndrome [...] mLs documented in this encounter Care Teams District Recruiter Relationship Specialty Start Date End Date Rodney Padilla MD PCP - General 07/18/22 04/09/24 documented as of this encounter
--- OUTSIDE RECORDS SUMMARY | 2024-08-20 15:51 | XMS_ITS | Encounter Summary ---
Author Organization [facility] [place] [address] Care Team Providers Care Prosthetic Assistant Name Role Phone Rodney Padilla MD Primary Care Provider [phone] Reason for Visit * Consultation (Routine) - Closed Specialty Diagnoses / Procedures Referred By Gonzalez kumari Referred To Contact Pulmonology Diagnoses Interstitial lung disease Rodney Padilla MD [address] [place] [address] [place] [address] [facility] [address] [place] [phone] Referral ID Status Reason Start Date Expiration Date V isits Requested Visits Authorized [id number] Closed Consult, Test & Treat 08/21/2023 08/20/2024 1 1 Encounter Details Date Type Department Care Team (Late st Contact Info) Description 10/24/2023 11:00 AM EDT Office [place] [address] Jonathan Boswell MD [facility] [place] [address] Nicotine dependence, cigarettes, uncomplicated; Wheeze; [...] and gum and have you call the [employer] line for additional assistance. They may also [...] visit. You can reach me by phone ([phone]) or by sending a [employer] message. Best, Jonathan Boswell MD Tips for Optimal Use of Nasal Gravette Medication It is incredibly common for people [...] towards the top of your Left ear. Gravette the medication. But DO NOT forcefully sniff [...] he starts to go through the procedure. www.[employer]com/watch?v=[email or web address]&t=69s Tobacco Treatment: Nicotine Replacement Instructions Nicotine patch [...] from the original note were not included. [facility] Section of Pulmonary and Critical Care Medicine Outpatient Consultation - Initial Visit Date of Encounter: 10/24/2023 Referring Provider: Rodney Padilla MD [address] [place] [address] PCP: Rodney Padilla MD Reason for Evaluation: ILD This was a fqxf-mk-wmhq office visit. History of Present Illness: Alize [...] on disability. 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 She enjoys gardening, renae in particular. 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 10/09/2007 History of [...] 3.47) performed by Juanpablo Hernandez MD at [facility] PRO EXCIS CORNEA LESN Left 05/14/2020 EXCISION OF LESION, CORNEA, EXCEPT PTERYGIUM (WRVU 7.5) performed by Juanpablo Hernandez MD at [facility] PRO LAP, PARTIAL NEPHRECTOMY Left 06/28/2019 LAPAROSCOPY, PARTIAL NEPHRECTOMY, ROBOTIC ASSIST (WRVU 27.41) performed by Avila Medina MD at [facility] MAIN OR PRO PLACE AMNIOTIC MEMBRANE OCULAR SURFACE;SINGLE LAYER SUTURED Left 05/14/2020 PLACEMENT OF AMNIOTIC MEMBRANE ON THE OCULAR SURFACE,SINGLE LAYER,SUTURED (WRVU 2.5) performed by Juanpablo Hernandez MD at [facility] Family History: Family History Problem [...] privary and control challenging. 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 Current Medications Current Outpatient Medications: fluticasone propionate (Flonase) 50 mcg/actuation [place], Suspension, SPRAY 1 SPRAY IN EACH NOSTRIL TWO TIMES A DAY, Disp: 48 mL, Rfl: 3 lamoTRIgine (LaMICtal) 150 mg tablet, Take 150 mg by mouth Daily at Noon., Disp: , Rfl: simvastatin (Zocor) 10 mg tablet, TAKE ONE TABLET BY MOUTH EVERY DAY, Disp: 90 tablet, Rfl: 1 Blood-Glucose Meter,Continuous (Dexcom G7 Car Rental Agency Manager) Misc, 1 Device by Misc.(Non- Drug; Combo [...] , Rfl: inhalational spacing device (Hesham Aerosol [place] Enhancer) Spacer, 1 each by Misc.(Non-Drug; Combo [...] minutes on this encounter on 10/24/2023 including itre-rf-vdoi time, counseling, managingmedications, reviewing records, interpreting data, and documenting as detailed in my note above. Jonathan Bsowell MD [facility] Managerparamedic rn Pulmonary [place] [address] [email or web address] documented in this encounter Plan of Treatment Upcoming Encounters Date Type Department Care Team (Latest Contact Info) Description 08/29/2024 1:00 PM EST Hospital Encounter [place] [address] Roland Gooden MD [facility] [place] [address] 08/29/2024 1:00 PM EST - 08/29/2024 2:00 PM EST Surgery [place] [address] Roland Gooden MD [facility] [place] [address] EGD, UPPER GI ENDOSCOPY (WRVU 2.09) 10/02/2024 1:00 PM EDT Office Visit Ophthalmology at [place] [phone] Juanpablo Hernandez MD [facility] [address] 10/21/2024 9:30 AM EDT Office Visit Internal Medicine at [address] [phone] Daryn Garrett MD [facility] DR [place]I [place] [address] 01/30/2025 1:30 PM EDT Laboratory Appointment Lab at [place] Hematology Oncology [address] [place] [phone] 01/30/2025 3:[address] Scan at [place] [phone] Artuor Cordero MD [facility] [place] [address] 01/30/2025 4:15 PM EDT Office Visit Hematology and Oncology at [place] [phone] Arturo Cordero MD [facility] [place] [address] Scheduled Orders Name Type Priority Associated Diagnoses [...] obesity type, unspecified whether serious comorbidity present Irritable bowel syndrome with constipation Irritable bowel syndrome documented in this encounter Care Teams Prosthetic Assistant Relationship Specialty Start Date End Date Rodney Padilla MD PCP - General 07/18/22 04/09/24 documented as of this encounter
--- OUTSIDE RECORDS SUMMARY | 2024-08-20 15:51 | XMS_ITS | Encounter Summary ---
Author Organization Formerly [facility] [place] [address] Care Team Providers Care Academic Dean Name Role Phone Rodney Padilla MD Primary Care Provider Encounter Details Date Type Department Care Team (Latest Contact Info) Description 09/19/2023 11:20 AM EDT Laboratory Appointment Lab at [facility] [address] [place] [address] Type 2 diabetes mellitus without [...] 1:00 PM EST Hospital Encounter Gastroenterology at [place] [phone] Roland Gooden MD [facility] [place] [address] 08/29/2024 1:00 PM EST - 08/29/2024 2:00 PM EST Surgery Gastroenterology at [place] [phone] Roland Gooden MD [facility] [place] [address] EGD, UPPER GI ENDOSCOPY (WRVU 2.09) 10/02/2024 1:00 PM EDT Office Visit Ophthalmology at [place] [phone] Juanpablo Hernandez MD [facility] [place] [address] 10/21/2024 9:30 AM EDT Office Visit Internal Medicine at [facility] [address] [place] [phone] Daryn Garrett MD [facility] DR LILI [place] [address] 01/30/2025 1:30 PM EDT Laboratory Appointment Lab at [facility] Hematology Oncology [address] [place] [phone] 01/30/2025 3:[address] [place] [phone] Arturo Cordero MD [facility] DR [place] [address] 01/30/2025 4:15 PM EDT Office Visit Hematology [place] [address] Arturo Cordero MD [facility] DR [place] [address] Scheduled Procedures Name Priority Associated Diagnoses Date/Ti il EGD, UPPER GI ENDOSCOPY (WRVU 2.09) Irritable [...] Hemoglobin A1c 9.2(H) 4.3 - 5.6 % [facility] Comment: Reference Range: 4.3 [...] Mellitus, Diabetes Care 2013; 36: Suppl. 1, R28-36 Estimated Average Glucose 217 mg/dL [facility] Blood 09/19/2023 11:2 4 AM EDT 09/19/2023 1:14 PM EDT Narrative Resulting Agency Comment Spec In Lab Rodney Padilla MD CHEMISTRY ORDERABLE S [facility] [place] [address] documented in this encounter Visit Diagnoses Diagnosis Type 2 diabetes mellitus without complication, with long-term current use of insulin Irritable bowel syndrome with constipation Irritable bowel syndrome documented in this encounter Care Teams Academic Dean Relationship Specialty Start Date End Date Rodney Padilla MD PCP - General 07/18/22 04/09/24 documented as of this encounter
--- OUTSIDE RECORDS SUMMARY | 2024-08-20 15:51 | XMS_ITS | Encounter Summary ---
[place] [address] Care Team Providers Care Oil Burner Technician Name Role Phone Rodney Padilla MD Primary Care Provider Reason for Referral * Consultation (Routine) - Closed Specialty Diagnoses / Procedures Referred By Gonzalez kumari Referred To Contact Pulmonology Diagnoses Interstitial lung disease Rodney Padilla MD [address] [place] [address] [facility] Pulmonology [address] [place] [phone] Referral ID Status Reason Start Date Expiration Date V isits Requested Visits Authorized [id number] Closed Consult, Test & Treat 08/21/2023 08/20/2024 1 1 Encounter Details Date Type Department Care Team (Late st Contact Info) Description 08/21/2023 Orders Only Family Medicine at [address] [place] [phone] Rodney Padilla MD [address] [place] [address] Interstitial lung disease Social History Tobacco Use [...] 1:00 PM EST Hospital Encounter Gastroenterology at [facility] [place] [address] Roland Gooden MD [facility] GASTROENTER[place] [address] 08/29/2024 1:00 PM EST - 08/29/2024 2:00 PM EST Surgery Gastroenterology at [address] Roland Gooden MD [facility] [place] [address] EGD, UPPER GI ENDOSCOPY (WRVU 2.09) 10/02/2024 1:00 PM EDT Office Visit Ophthalmology at [place] [phone] Juanpablo Hernandez MD [facility] [place] [address] 10/21/2024 9:30 AM EDT Office Visit Internal Medicine at [address] [phone] Daryn Garrett MD [facility] DR LILI [place] [address] 01/30/2025 1:30 PM EDT Laboratory Appointment Lab at [facility] Hematology Oncology [address] [place], [place] [phone] 01/30/2025 3:[address] Scan at [place] [phone] Arturo Cordero MD [facility] H[place]ATOLOGY [place] [address] 01/30/2025 4:15 PM EDT Office Visit Hematology [place] [phone] Arturo Cordero MD [facility] HEMATOLOGY [place] [address] Scheduled Procedures Name Priority Associated Diagnoses Date/Ti [...] Diagnosis Interstitial lung disease Postinflammatory pulmonary fibrosis Irritable bowel syndrome with constipation Irritable bowel syndrome documented in this encounter Care Teams Oil Burner Technician Relationship Specialty Start Date End Date Rodney Padilla MD PCP - General 07/18/22 04/09/24 documented as of this encounter
--- OUTSIDE RECORDS SUMMARY | 2024-08-20 15:51 | XMS_ITS | Encounter Summary ---
Author Organization [facility] [place] [address] Care Team Providers Care Early Childhood Name Role Phone Rodney Padilla MD Primary Care Provider Reason for Visit * Reason Onset Date Comments Prior Authorization 12/07/2023 [employer] 0.025% cream Encounter Details Date Type Department Care Team (Late st Contact Info) Description 12/07/2023 Telephone Dermatology at [facility] [address] [place] [phone] Erika Caraballo LNA Prior Authorization [...] cosmetic Pas, insurance will not cover. Archived [facility] Anderson: [id number] - Rx #: [id number] documented in this encounter Plan of Treatment Upcoming Encounters Date Type Department Care Team (Latest Contact Info) Description 08/29/2024 1:00 PM EST Hospital Encounter [place] [address] Roland Gooden MD [facility] [place] [address] 08/29/2024 1:00 PM EST - 08/29/2024 2:00 PM EST [place] [phone] Roland Gooden MD [facility] [place] [address] EGD, UPPER GI ENDOSCOPY (WRVU 2.09) 10/02/2024 1:00 PM EDT Office Visit Ophthalmology at [place] [phone] Juanpablo Hernandez MD [facility] [place] [address] 10/21/2024 9:30 AM EDT Office Visit Internal Medicine at [address] [place] [phone] Daryn Garrett MD [facility] DR LILI [place] [address] 01/30/2025 1:30 PM EDT Laboratory Appointment Lab at [facility] Hematology Oncology [address] [place] [phone] 01/30/2025 3:[address] Scan at [place] [phone] Arturo Cordero MD [facility] [place] [address] 01/30/2025 4:15 PM EDT Office Visit Hematology [place] [phone] Arturo Cordero MD [facility] [place] [address] Scheduled Procedures Name Priority Associated Diagnoses Date/Ti me EGD, UPPER GI ENDOSCOPY (WRVU 2.09) Irritable bowel syndrome with constipation 08/29/2024 1:00 PM EST COLONOSCOPY, DIAGNOSTIC (WRVU 3.26) Irritable bowel syndrome with constipation 08/29/2024 1:00 PM EST documented as of this encounter Visit Diagnoses Not on filedocumented in this encounter Care Teams Early Childhood Relationship Specialty Start Date End Date Rodney Padilla MD PCP - General 07/18/22 04/09/24 documented as of this encounter
--- OUTSIDE RECORDS SUMMARY | 2024-08-20 15:51 | XMS_ITS | Encounter Summary ---
Author Organization [facility] Address [facility] [place] [address] Care Team Providers Care Batch Maker Name Role Phone Rodney Padilla MD [...] 1:00 PM EST Hospital Encounter [place] [address] Roland Gooden MD [facility] [place] [address] 08/29/2024 1:00 PM EST - 08/29/2024 2:00 PM EST Surgery [place] [phone] Roland Gooden MD [facility] [place] [address] EGD, UPPER GI ENDOSCOPY (WRVU 2.09) 10/02/2024 1:00 PM EDT Office [place] [phone] Juanpablo Hernandez MD [facility] [address] 10/21/2024 9:30 AM EDT Office Visit Internal Medicine at [facility] [address] [place] [phone] Daryn Garrett MD [facility] DR [place] [address] 01/30/2025 1:30 PM EDT Laboratory Appointment Lab at [facility] [place] [address] [place], [place] [phone] 01/30/2025 3:[address] Scan at [place] [phone] Arturo Cordero MD [facility] [place] [address] 01/30/2025 4:15 PM EDT Office Visit Hematology and Oncology at [place] [phone] Arturo Cordero MD [facility] [place] [address] Scheduled Procedures Name Priority Associated Diagnoses Date/Ti me EGD, UPPER GI ENDOSCOPY (WRVU 2.09) Irritable bowel syndrome with constipation 08/29/2024 1:00 PM EST COLONOSCOPY, DIAGNOSTIC (WRVU 3.26) Irritable bowel syndrome with constipation 08/29/2024 1:00 PM EST documented as of this encounter Visit Diagnoses Not on filedocumented in this encounter Care Teams Batch Maker Relationship Specialty Start Date End Date Rodney Padilla MD PCP - General 07/18/22 04/09/24 documented as of this encounter
--- OUTSIDE RECORDS SUMMARY | 2024-08-20 15:51 | XMS_ITS | Encounter Summary ---
Author Organization Formerly [facility] Address [facility] [place] [address] Care Team Providers Care Reinspector Name Role Phone Rodney Padilla MD Primary Care Provider Encounter Details Date Type Department Care Team (Late st Contact Info) Description 11/29/2023 1:20 PM EDT Office Visit Dermatology at [facility] [address] [place] [address] Antonia Minor MD [facility] [place] [address] Multiple melanocytic nevi; Photoaging of skin; Seborrheic [...] not submit a PA), and will require [id number]-yjzmby payment at the pharmacy. - Discussed GoodRx, [...] and wound care were reviewed. #. Clavus ([place]) - Focal hyperkeratotic papule on the left [...] 1 year for FSE []Note routed to secretary to board of commissioners [x]Recall placed in scheduling system []Appointment scheduled at checkout Scribe attestation: Nolberto Simmons has performed the documentation for this encounter in the presence of and acting as a scribe for Antonia Minor MD. I performed the above scribed service and agree with the accuracy of the documentation in this encounter. Reviewed and signed by: Antonia Minor MD Dermatology [facility] Staff investor relations analyst: Justine Castillo MD Dermatology [facility] * Justine Castillo MD - 11/29/2023 1:20 PM EDT I was the supervising physician working with the Dermatology resident, Antonia Minor MD, in the care of this Dermatology patient in person. For the purposes of billing, the resident provided the care. I have reviewed the encounter note details and level of service. JUSTINE CASTILLO MD Staff Silver Cleaner Department of Dermatology [facility] documented in this encounter Plan of Treatment Upcoming Encounters Date Type Department Care Team (Latest Contact Info) Description 08/29/2024 1:00 PM EST Hospital Encounter [place] [phone] Roland Gooden MD [facility] [place] [address] 08/29/2024 1:00 PM EST - 08/29/2024 2:00 PM EST Surgery [place] [phone] Roland Gooden MD [facility] [place] [address] EGD, UPPER GI ENDOSCOPY (WRVU 2.09) 10/02/2024 1:00 PM EDT Office [place] [phone] Juanpablo Hernandez MD [facility] [place] [address] 10/21/2024 9:30 AM EDT Office Visit Internal Medicine at [address] [phone] Daryn Garrett MD [facility] DR LIL[place] [address] 01/30/2025 1:30 PM EDT Laboratory Appointment Lab at [facility] Hematology Oncology [address] [place] [phone] 01/30/2025 3:[address] Scan at [place] [phone] Arturo Cordero MD [facility] [place] [address] 01/30/2025 4:15 PM EDT Office Visit Hematology [place] [phone] Arturo Cordero MD [facility] DR [place] [address] Scheduled Procedures Name Priority Associated Diagnoses Date/Ti [...] Family history of other specified malignant neoplasm Irritable bowel syndrome with constipation Irritable bowel syndrome documented in this encounter Care Teams Reinspector Relationship Specialty Start Date End Date Rodney Padilla MD PCP - General 07/18/22 04/09/24 documented as of this encounter
--- OUTSIDE RECORDS SUMMARY | 2024-08-20 15:51 | XMS_ITS | Encounter Summary ---
Author Organization [facility]ly [facility] Address [facility] [place] [address] Care Team Providers Care Lye Machine Operator Name Role Phone Rodney Padilla [...] 1:00 PM EST Hospital Encounter [place] [address] Roland Gooden MD [facility] [place] [address] 08/29/2024 1:00 PM EST - 08/29/2024 2:00 PM EST Surgery [place] [phone] Roland Gooden MD [facility] [place] [address] EGD, UPPER GI ENDOSCOPY (WRVU 2.09) 10/02/2024 1:00 PM EDT Office [place] [phone] Juanpablo Hernandez MD [facility] [place] [address] 10/21/2024 9:30 AM EDT Office Visit Internal Medicine at [facility] [address] [place] [phone] Daryn Garrett MD [facility] DR LILI [place] [address] 01/30/2025 1:30 PM EDT Laboratory Appointment Lab [place] [facility] [place] [address] [place], [place] [phone] 01/30/2025 3:[address] Scan at [place] [phone] Arturo Cordero MD [facility] [place] [address] 01/30/2025 4:15 PM EDT Office Visit Hematology [place] [phone] Arturo Cordero MD [facility] DR [place] [address] Scheduled Procedures Name Priority Associated Diagnoses Date/Ti me EGD, UPPER GI ENDOSCOPY (WRVU 2.09) Irritable bowel syndrome with constipation 08/29/2024 1:00 PM EST COLONOSCOPY, DIAGNOSTIC (WRVU 3.26) Irritable bowel syndrome with constipation 08/29/2024 1:00 PM EST documented as of this encounter Visit Diagnoses Not on filedocumented in this encounter Care Teams Lye Machine Operator Relationship Specialty Start Date End Date Rodney Padilla MD PCP - General 07/18/22 04/09/24 documented as of this encounter
--- OUTSIDE RECORDS SUMMARY | 2024-08-20 15:51 | XMS_ITS | Encounter Summary ---
Author Organization [facility] Address [facility] [place] [address] Care Team Providers Care Rivet Driver Name Role Phone Rodney Padilla MD Primary Care Provider [phone] Reason for Visit * Reason Comments Follow-up Encounter Details Date Type Department Care Team (Late st Contact Info) Description 12/20/2023 1:30 PM EDT Office Visit Family Medicine at [facility] [address] [place] [phone] Rodney Padilla MD [address] [place] [address] [place] [address] Type 2 diabetes mellitus without long-term current [...] or during use. 100 each 3 fluticasone wvtawgs-rlgjhbwfkgev-uyvobjpmoj (Trelegy Ellipta) 200-62.5-25 mcg Inhale 1 puff into the lungs daily. Rinse mouth after use 1 each 11 fluticasone propionate (Flonase) 50 mcg/actuation [place], Suspension SPRAY 1 SPRAY IN EACH NOSTRIL TWO TIMES A DAY 48 mL 3 lamoTRIgine (LaMICtal) 150 mg tablet Take 150 mg by mouth Daily at Noon. simvastatin (Zocor) 10 mg tablet TAKE ONE TABLET BY MOUTH EVERY DAY 90 tablet 1 Blood-Glucose Meter,Continuous (Dexcom G7 Weight Loss Counselor) Misc 1 Device by [facility] Center[facility]-1.(Non- Drug; Combo Route) route continuous. Blood-Glucose Sensor (Dexcom G7 Sensor) Device 1 Device by MisLMN-1.(Non-Drug; Combo Route) route every10 days. 3 each 11 Lantus Solostar U-100 Insulin 100 unit/mL (3 mL) pen Inject 18 Units subcutaneously nightly. Inject2-20 units based on BG Indications: type 2 diabetes mellitus inhalational spacing device (Hesham Aerosol [place] Enhancer) Spacer 1 each by Misc.(Non-Drug; Combo [...] patient/family/caregiver Referring and communicating with other health housekeeper child care Documenting clinical information in the electronic or other health record Independently interpreting results Care coordination documented in this encounter Plan of Treatment Upcoming Encounters Date Type Department Care Team (Latest Contact Info) Description 08/29/2024 1:00 PM EST Hospital Encounter [place] [address] Roland Gooden MD [facility] [place] [address] 08/29/2024 1:00 PM EST - 08/29/2024 2:00 PM EST Surgery [place] [address] Roland Gooden MD [facility] [place] [address] EGD, UPPER GI ENDOSCOPY (WRVU 2.09) 10/02/2024 1:00 PM EDT Office [place] [address] Juanpablo Hernandez MD [facility] [place] [place] [address] 10/21/2024 9:30 AM EDT Office Visit Internal Medicine at [place] [address] [place] [phone] Daryn Garrett MD [facility] DR LILI [place] [address] 01/30/2025 1:30 PM EDT Laboratory Appointment Lab [place] [facility] [place] [address] [place] [phone] 01/30/2025 3:[address] [place] [phone] Arturo Cordero MD [facility] DR [place] [address] 01/30/2025 4:15 PM EDT Office Visit Hematology [place] [phone] Arturo Cordero MD [facility] DR [place] [address] Scheduled Procedures Name Priority Associated Diagnoses Date/Ti [...] [facility] Creatinine, Urine 75 mg/dL [facility] Urine 12/20/2023 2:28 PM EDT 12/20/2023 4:11 PM EDT Narrative Resulting Agency Comment Spec In Lab Rodney Padilla MD URINE ORDERABLES [facility] [place] [phone] * (ABNORMAL) Hemoglobin A1c (12/20/2023 2:14 PM [...] 36: Suppl. 1, S67-74 Estimated Average Glucose 222 mg/dL [facility] Blood 12/20/2023 2:14 PM EDT 12/20/2023 4:37 PM EDT Narrative Resulting Agency Comment Spec In Lab Rodney Padilla [place] [address] documented in this encounter Visit Diagnoses Diagnosis Type 2 diabetes mellitus without long-term current use of insulin Essential hypertension Unspecified essential hypertension TITO (obstructive sleep apnea) Obstructive sleep apnea (adult) (pediatric) Interstitial lung disease Postinflammatory pulmonary fibrosis Irritable bowel syndrome with constipation Irritable bowel syndrome documented in this encounter Care Teams Rivet Driver Relationship Specialty Start Date End Date Rodney Padilla MD PCP - General 07/18/22 04/09/24 documented as of this encounter
--- OUTSIDE RECORDS SUMMARY | 2024-08-20 15:51 | XMS_ITS | Encounter Summary ---
Author Organization [facility] [place] [address] Care Team Providers Care Spaghetti Machine Operator Name Role Phone Rodney Padilla MD Primary Care Provider Encounter Details Date Type Department Care Team (Latest Contact Info) Description 12/20/2023 2:00 PM EDT Laboratory Appointment Lab at [facility] [address] [place] [address] Type 2 diabetes mellitus without [...] 1:00 PM EST Hospital Encounter Gastroenterology at [place] [phone] [facility] [place] [place] [address] 08/29/2024 1:00 PM EST - 08/29/2024 2:00 PM EST Surgery Gastroenterology at [place] [phone] [facility] [place] [address] EGD, UPPER GI ENDOSCOPY (WRVU 2.09) 10/02/2024 1:00 PM EDT Office Visit Ophthalmology at [place] [phone] [facility] [place] [address] 10/21/2024 9:30 AM EDT Office Visit Internal Medicine at [facility] [address] [place] [phone] [facility] DR [place] [address] 01/30/2025 1:30 PM EDT Laboratory Appointment Lab at [facility] Hematology Oncology [address] [place] [phone] 01/30/2025 3:[address] [place] [phone] [facility] [place] [address] 01/30/2025 4:15 PM EDT Office Visit Hematology [place] [address] [facility] [place] [address] Scheduled Procedures Name Priority Associated Diagnoses Date/Ti [...] Not Calculated 0 - 29 mcg/mg Cr [facility] Comment: Reference Ranges: <30 mcg/mg: [...] 2, 357? 362 Albumin, Urine <3.0 mg/L [facility] Creatinine, Urine 75 mg/dL [facility] Urine 12/20/2023 2:28 PM EDT 12/20/2023 4:11 PM EDT Narrative Resulting Agency Comment Spec In Lab Rodney Padilla MD URINE ORDERABLES [facility] [place] [address] * (ABNORMAL) Hemoglobin A1c (12/20/2023 2:14 PM EDT) Hemoglobin A1c 9.4(H) 4.3 - 5.6 % [facility] Comment: Reference Range: 4.3 - [...] Mellitus, Diabetes Care 2013; 36: Suppl. 1, Z44-83 Estimated Average Glucose 222 mg/dL [facility] Blood 12/20/2023 2:14 PM EDT 12/20/2023 4:37 PM EDT Narrative Resulting Agency Comment Spec In Lab Rodney Padilla MD CHEMISTRY ORDERABLE S [facility] [place] [address] documented in this encounter Visit Diagnoses Diagnosis Type 2 diabetes mellitus without long-term current use of insulin Irritable bowel syndrome with constipation Irritable bowel syndrome documented in this encounter Care Teams Spaghetti Machine Operator Relationship Specialty Start Date End Date Rodney Padilla MD PCP - General 07/18/22 04/09/24 documented as of this encounter
--- OUTSIDE RECORDS SUMMARY | 2024-08-20 15:51 | XMS_ITS | Encounter Summary ---
Author Organization [facility] Address [facility] [place] [address] Care Team Providers Care Addiction Counselor Name Role Phone Rodney Padilla MD [...] 1:00 PM EST Hospital Encounter [place] [address] Roland Gooden MD [facility] [place] [address] 08/29/2024 1:00 PM EST - 08/29/2024 2:00 PM EST Surgery [place] [phone] Roland Gooden MD [facility] [place] [address] EGD, UPPER GI ENDOSCOPY (WRVU 2.09) 10/02/2024 1:00 PM EDT Office [place] [phone] Juanpablo Hernandez MD [facility] [place] [address] 10/21/2024 9:30 AM EDT Office Visit Internal Medicine at [facility] [address] [place] [phone] Daryn Garrett MD [facility] DR LILI WALKER [place] [address] 01/30/2025 1:30 PM EDT Laboratory Appointment Lab at [facility] Hematology Oncology [address] [place], [place] [phone] 01/30/2025 3:[address] Scan at [place] [phone] Arturo Cordero MD [facility] HEMATOLOGY [place] [address] 01/30/2025 4:15 PM EDT Office Visit Hematology and Oncology at [place] [phone] Arturo Cordero MD [facility] DR HEMATOLOGY [place] [address] Scheduled Procedures Name Priority Associated Diagnoses Date/Ti me EGD, UPPER GI ENDOSCOPY (WRVU 2.09) Irritable bowel syndrome with constipation 08/29/2024 1:00 PM EST COLONOSCOPY, DIAGNOSTIC (WRVU 3.26) Irritable bowel syndrome with constipation 08/29/2024 1:00 PM EST documented as of this encounter Visit Diagnoses Not on filedocumented in this encounter Care Teams Addiction Counselor Relationship Specialty Start Date End Date Rodney Padilla MD PCP - General 07/18/22 04/09/24 documented as of this encounter
--- OUTSIDE RECORDS SUMMARY | 2024-08-20 15:51 | XMS_ITS | Encounter Summary ---
Author Organization [facility] [place] [address] Care Team Providers Care Manager Radiation Name Role Phone Rodney Padilla MD Primary Care Provider Reason for Visit * Reason Comments Melanoma Melanoma of conjunct ana luisa OS Encounter Details Date Type Department Care Team (Late st Contact Info) Description 11/29/2023 2:45 PM EDT Office [place] [address] Juanpablo Hernandez MD [facility] [place] [address] Malignant melanoma of conjunctiva, left; Type 2 [...] 1:00 PM EST Hospital Encounter [place] [address] Roland Gooden MD [facility] [place] [address] 08/29/2024 1:00 PM EST - 08/29/2024 2:00 PM EST [place] [address] Roland Gooden MD [facility] [place] [address] EGD, UPPER GI ENDOSCOPY (WRVU 2.09) 10/02/2024 1:00 PM EDT Office Visit Ophthalmology at [place] [phone] Juanpablo Hernandez MD [facility] [address] 10/21/2024 9:30 AM EDT Office Visit Internal Medicine at [address] [phone] Daryn Garrett MD [facility] DR LILI WALKER [place] [address] 01/30/2025 1:30 PM EDT Laboratory Appointment Lab at [facility] Hematology Oncology [address] [place], [place] [phone] 01/30/2025 3:[address] Scan at [place] [phone] Arturo Cordero MD [facility] HEMATOLOGY [place] [address] 01/30/2025 4:15 PM EDT Office Visit Hematology and Oncology at [place] [phone] Arturo Cordero MD [facility] HEMATOLOGY [place] [address] Scheduled Procedures Name Priority Associated Diagnoses Date/Ti [...] documented in this encounter Care Teams Manager Radiation Relationship Specialty Start Date End Date Rodney Padilla MD PCP - General 07/18/22 04/09/24 documented as of this encounter
--- OUTSIDE RECORDS SUMMARY | 2024-08-20 15:51 | XMS_ITS | Encounter Summary ---
Author Organization [facility] [place] [address] Care Team Providers Care Lunchroom Operator Name Role Phone Rodney Padilla MD Primary Care Provider [phone] Reason for Visit * Reason Comments Medication Refill Encounter Details Date Type Department Care Team (Late st Contact Info) Description 08/27/2023 Refill Family Medicine at [facility] [address] [place] [address] Rodney Padilla MD [address] [place] [address] Mixed hyperlipidemia Social History Tobacco Use [...] 1:00 PM EST Hospital Encounter Gastroenterology at [place] [phone] Roland Gooden MD [facility] [place] [address] 08/29/2024 1:00 PM EST - 08/29/2024 2:00 PM EST Surgery Gastroenterology at [place] [phone] Roland Gooden MD [facility] [place] [address] EGD, UPPER GI ENDOSCOPY (WRVU 2.09) 10/02/2024 1:00 PM EDT Office Visit Ophthalmology at [place] [phone] Juanpablo Hernandez MD [facility] [place] [address] 10/21/2024 9:30 AM EDT Office Visit Internal Medicine at [address] [phone] Daryn Garrett MD [facility] DR LILI [place] [address] 01/30/2025 1:30 PM EDT Laboratory Appointment Lab at [facility] Hematology Oncology [address] [place] [phone] 01/30/2025 3:[address] [place] [address] Arturo Cordero MD [facility] HEMATOLOGY AND ONCOLOGY [place], [place] [address] 01/30/2025 4:15 PM EDT Office Visit Hematology [place] [address] Arturo Cordero MD [facility] DR [place] [address] Scheduled Procedures Name Priority Associated Diagnoses Date/Ti me EGD, UPPER GI ENDOSCOPY (WRVU 2.09) Irritable bowel syndrome with constipation 08/29/2024 1:00 PM EST COLONOSCOPY, DIAGNOSTIC (WRVU 3.26) Irritable bowel syndrome with constipation 08/29/2024 1:00 PM EST documented as of this encounter Visit Diagnoses Diagnosis Mixed hyperlipidemia Irritable bowel syndrome with constipation Irritable bowel syndrome documented in this encounter Care Teams Lunchroom Operator Relationship Specialty Start Date End Date Rodney Padilla MD PCP - General 07/18/22 04/09/24 documented as of this encounter
--- OUTSIDE RECORDS SUMMARY | 2024-08-20 15:51 | XMS_ITS | Encounter Summary ---
Author Organization [facility] Address [facility] [address] Care Team Providers Care Group Fitness Instructor Name Role Phone Rodney Padilla MD [...] 1:00 PM EST Hospital Encounter [place] [address] Roland Gooden MD [facility] [place] [address] 08/29/2024 1:00 PM EST - 08/29/2024 2:00 PM EST Surgery [place] [phone] Roland Gooden MD [facility] [place] [address] EGD, UPPER GI ENDOSCOPY (WRVU 2.09) 10/02/2024 1:00 PM EDT Office Visit [place] [phone] Juanpablo Hernandez MD [facility] [place] [address] 10/21/2024 9:30 AM EDT Office Visit Internal Medicine at [facility] [address] [place] [phone] Daryn Garrett MD [facility] DR ILLI WALKER [place] [address] 01/30/2025 1:30 PM EDT Laboratory Appointment Lab at [facility] [place] [place] Hematology Oncology [address] [place], [place] [phone] 01/30/2025 3:[address] Scan at [place] [phone] Arturo Cordero MD [facility] HEMATOLOGY [place] [address] 01/30/2025 4:15 PM EDT Office Visit Hematology and Oncology at [place] [phone] Arturo Cordero MD [facility] DR HEMATOLOGY [place] [address] Scheduled Procedures Name Priority Associated Diagnoses Date/Ti me EGD, UPPER GI ENDOSCOPY (WRVU 2.09) Irritable bowel syndrome with constipation 08/29/2024 1:00 PM EST COLONOSCOPY, DIAGNOSTIC (WRVU 3.26) Irritable bowel syndrome with constipation 08/29/2024 1:00 PM EST documented as of this encounter Visit Diagnoses Not on filedocumented in this encounter Care Teams Group Fitness Instructor Relationship Specialty Start Date End Date Rodney Padilla MD PCP - General 07/18/22 04/09/24 documented as of this encounter
--- OUTSIDE RECORDS SUMMARY | 2024-08-20 15:51 | XMS_ITS | Encounter Summary ---
Author Organization [facility] [place] [address] Care Team Providers Care Shell Maker Lockstitch Name Role Phone Rodney Padilla MD Primary Care Provider Encounter Details Date Type Department Care Team (Latest Contact Info) Description 08/18/2023 12:40 PM EST - 08/18/2023 11:59 PM EST Hospital [place] [address] Chronic obstructive pulmonary disease, unspecified COPD type [...] Sig Dispensed Refills Start Date End Date Blood-Glucose Meter,Continuous (Dexcom G7 Gum Worker) MiscIndications:Type 2 diabetes mellitus with hyperglycemia, without long-term current use of insulin 1 Device by [facility].(Non-Drug; Combo Route) route continuous. 08/18/2023 Blood-Glucose Sensor (Dexcom G7 Sensor) DeviceIndications:Typ e 2 diabetes mellitus with hyperglycemia, without long-term current use of insulin 1 Device by [facility].(Non-Drug; Combo Route) route every 10 days. 3 each 11 08/18/2023 inhalational spacing device (Hesham Aerosol [place] Enhancer) SpacerIndications:Chr onic obstructive pulmonary disease, unspecified COPD type 1 each by [facility].(Non-Drug; Combo Route) route as needed. 1 each [...] Take 81 mg by mouth daily. lamoTRIgine (LaMICtal) 150 mg tablet Take 150 mg by mouth Daily at Noon. 08/17/2023 06/26/2024 Lantus Solostar U-100 Insulin 100 unit/mL (3 [...] 09/26/2022 09/19/2023 fluticasone propionate (Flonase) 50 mcg/actuation [place], Suspension 1 spray by Each Nare route [...] 1:00 PM EST Hospital En[place] [phone] Roland Gooden MD [facility] [place] [address] 08/29/2024 1:00 PM EST - 08/29/2024 2:00 PM EST [place] [phone] Roland Gooden MD [facility] [place] [address] EGD, UPPER GI ENDOSCOPY (WRVU 2.09) 10/02/2024 1:00 PM EDT Office [place] [phone] Juanpablo Hernandez MD [facility] [place] [address] 10/21/2024 9:30 AM EDT Office Visit Internal Medicine at [address] [address] Daryn Garrett MD [facility] DR LILI [place] [address] 01/30/2025 1:30 PM EDT Laboratory Appointment Lab at [facility] [facility] Hematology Oncology [address] [place] [phone] 01/30/2025 3:[address] [place] [address] Arturo Cordero MD [facility] DR HEMAT[place] [address] 01/30/2025 4:15 PM EDT Office Visit H[place]ology [place] [phone] Arturo Cordero MD [facility] DR [place] [address] Scheduled Procedures Name Priority Associated Diagnoses Date/Ti [...] PFT FEV1/FVC Pre-BD Z-Score -0.96 COMPAS PFT ZVG59-50 Actual Pre-BD 0.88 % COMPAS PFT SIZ32-38 Predicted 2.06 % COMPAS PFT CNN95-89 Pre-BD % of Predicted 43 % COMPAS PFT CIP51-18 Pre-BD Z-Score -1.92 COMPAS PFT DLCO Hb [...] Chronic obstructive pulmonary disease, unspecified COPD type Irritable bowel syndrome with constipation Irritable bowel syndrome documented in this encounter Care Teams Shell Maker Lockstitch Relationship Specialty Start Date End Date Rodney Padilla MD PCP - General 07/18/22 04/09/24 documented as of this encounter
--- OUTSIDE RECORDS SUMMARY | 2024-08-20 15:51 | XMS_ITS | Encounter Summary ---
Author Organization [facility] Address [facility] [place] [address] Care Team Providers Care Junior Accounting Clerk Name Role Phone Rodney Padilla MD [...] 1:00 PM EST Hospital Encounter [place] [address] Roland Gooden MD [facility] [place] [address] 08/29/2024 1:00 PM EST - 08/29/2024 2:00 PM EST [place] [phone] Roland Gooden MD [facility] [place] [address] EGD, UPPER GI ENDOSCOPY (WRVU 2.09) 10/02/2024 1:00 PM EDT Office [place] [phone] Juanpablo Hernandez MD [facility] [address] 10/21/2024 9:30 AM EDT Office Visit Internal Medicine at [facility] [address] [place] [phone] Daryn Garrett MD [facility] DR LILI [place] [address] 01/30/2025 1:30 PM EDT Laboratory Appointment Lab at [facility] Hematology Oncology [address] [place], [place] [phone] 01/30/2025 3:[address] Scan at [place] [phone] Arturo Cordero MD [facility] [place] [address] 01/30/2025 4:15 PM EDT Office Visit Hematology [place] [phone] Arturo Cordero MD [facility] DR [place] [address] Scheduled Procedures Name Priority Associated Diagnoses Date/Ti me EGD, UPPER GI ENDOSCOPY (WRVU 2.09) Irritable bowel syndrome with constipation 08/29/2024 1:00 PM EST COLONOSCOPY, DIAGNOSTIC (WRVU 3.26) Irritable bowel syndrome with constipation 08/29/2024 1:00 PM EST documented as of this encounter Visit Diagnoses Not on filedocumented in this encounter Care Teams Junior Accounting Clerk Relationship Specialty Start Date End Date Rodney Padilla MD PCP - General 07/18/22 04/09/24 documented as of this encounter
--- OUTSIDE RECORDS SUMMARY | 2024-08-20 15:51 | XMS_ITS | Encounter Summary ---
Author Organization [facility] [place] [address] Care Team Providers Care Seeing Eye Dog Trainer Name Role Phone Rodney Padilla MD Primary Care Provider Reason for Visit * Reason Comments Medication Refill Encounter Details Date Type Department Care Team (Late st Contact Info) Description 11/01/2023 Refill Family Medicine at [facility] [address] [place] [address] Rodney Padilla MD [address] [place] [address] [place] [address] Type 2 diabetes mellitus without long-term [...] 1:00 PM EST Hospital Encounter [place] [address] Roland Gooden MD [facility] [place] [address] 08/29/2024 1:00 PM EST - 08/29/2024 2:00 PM EST [place] [phone] Roland Gooden MD [facility] [place] [address] EGD, UPPER GI ENDOSCOPY (WRVU 2.09) 10/02/2024 1:00 PM EDT Office [place] [phone] Juanpablo Hernandez MD [facility] [place] [address] 10/21/2024 9:30 AM EDT Office Visit Internal Medicine at [facility] [address] [place] [phone] Daryn Garrett MD [facility] DR LILI WALKER [place] [address] 01/30/2025 1:30 PM EDT Laboratory Appointment Lab [place] [facility] [address] [place], [place] [phone] 01/30/2025 3:[address] [place] [phone] Arturo Cordero MD [facility] DR HEMATOLOGY [place] [address] 01/30/2025 4:15 PM EDT Office Visit Hematology and Oncology at [place] [phone] Arturo Cordero MD [facility] DR HEMATOLOGY [place] [address] Scheduled Procedures Name Priority Associated Diagnoses Date/Ti [...] syndrome documented in this encounter Care Teams Seeing Eye Dog Trainer Relationship Specialty Start Date End Date Rodney Padilla MD PCP - General 07/18/22 04/09/24 documented as of this encounter
--- OUTSIDE RECORDS SUMMARY | 2024-08-20 15:51 | XMS_ITS | Encounter Summary ---
Author Organization [facility] [place] [address] Care Team Providers Care Log Washer Name Role Phone Rodney Padilla MD Primary Care Provider [phone] Encounter Details Date Type Department Care Team (Late st Contact Info) Description 08/29/2023 2:15 PM EST Office Visit Sleep Center at [facility] [address] [place] [phone] Samantha Cadet, MANAGER BUSINESS TITO on CPAP Social History Tobacco Use [...] neoplasm of kidney, asthma, COPD, Diabetes, HTN, [place], dry mouth, left eye,and mental health problem. [...] Breathing:yes Symptom Benefit: more rested with CPAP Lafe:[email or web address]@Patient-reported last 4 scores: 05/07/2019 6:23 PM 05/09/2019 11:11 AM 04/13/2022 12:14 PM 08/29/2023 1:41 PM [facility] Lafe Sleep 7 (Low Risk) 10 (High Risk) [...] if drowsy, if drowsy while driving to slab puller and take a nap. 4) Patient [...] 1:00 PM EST Hospital Encounter Gastroenterology at [place] [phone] Roland Gooden MD [facility] [place] [address] 08/29/2024 1:00 PM EST - 08/29/2024 2:00 PM EST Surgery [place] [phone] Roland Gooden MD [facility] [place] [address] EGD, UPPER GI ENDOSCOPY (WRVU 2.09) 10/02/2024 1:00 PM EDT Office [place] [phone] Juanpablo Hernandez MD [facility] [address] 10/21/2024 9:30 AM EDT Office Visit Internal Medicine at [facility] [address] [place] [phone] Daryn Garrett MD [facility] DR LILI [place] [address] 01/30/2025 1:30 PM EDT Laboratory Appointment Lab [place] [facility] [place] [address] [place] [phone] 01/30/2025 3:[address] [place] [phone] Arturo Cordero MD [facility] DR [place]EM[place] [address] 01/30/2025 4:15 PM EDT Office Visit Hematology [place] [phone] Arturo Cordero MD [facility] DR [place]EMATOLOGY [place] [address] Scheduled Procedures Name Priority Associated Diagnoses Date/Ti me EGD, UPPER GI ENDOSCOPY (WRVU 2.09) Irritable bowel syndrome with constipation 08/29/2024 1:00 PM EST COLONOSCOPY, DIAGNOSTIC (WRVU 3.26) Irritable bowel syndrome with constipation 08/29/2024 1:00 PM EST documented as of this encounter Visit Diagnoses Diagnosis TITO on CPAP Obstructive sleep apnea (adult) (pediatric) Irritable bowel syndrome with constipation Irritable bowel syndrome documented in this encounter Care Teams Log Washer Relationship Specialty Start Date End Date Rodney Padilla MD PCP - General 07/18/22 04/09/24 documented as of this encounter
--- OUTSIDE RECORDS SUMMARY | 2024-08-20 15:51 | XMS_ITS | Encounter Summary ---
Author Organization [facility] Address [facility] [place] [address] Care Team Providers Care Tar Heater Name Role Phone Rodney Padilla MD Primary [...] 1:00 PM EST Hospital Encounter [place] [address] Roland Gooden MD [facility] [place] [address] 08/29/2024 1:00 PM EST - 08/29/2024 2:00 PM EST Surgery [place] [phone] Roland Gooden MD [facility] [place] [address] EGD, UPPER GI ENDOSCOPY (WRVU 2.09) 10/02/2024 1:00 PM EDT Office Visit [place] [phone] Juanpablo Hernandez MD [facility] [place] [address] 10/21/2024 9:30 AM EDT Office Visit Internal Medicine at [facility] [address] [place] [phone] Daryn Garrett MD [facility] DR LILI [place] [address] 01/30/2025 1:30 PM EDT Laboratory Appointment Lab at [facility] Hematology Oncology [address] [place], [place] [phone] 01/30/2025 3:[address] Scan at [place] [phone] Arturo Cordero MD [facility] H[place]ATOLOGY [place] [address] 01/30/2025 4:15 PM EDT Office Visit Hematology and Oncology at [place] [phone] Arturo Cordero MD [facility] DR HEMATOLOGY [place] [address] Scheduled Procedures Name Priority Associated Diagnoses Date/Ti me EGD, UPPER GI ENDOSCOPY (WRVU 2.09) Irritable bowel syndrome with constipation 08/29/2024 1:00 PM EST COLONOSCOPY, DIAGNOSTIC (WRVU 3.26) Irritable bowel syndrome with constipation 08/29/2024 1:00 PM EST documented as of this encounter Visit Diagnoses Not on filedocumented in this encounter Care Teams Tar Heater Relationship Specialty Start Date End Date Rodney Padilla MD PCP - General 07/18/22 04/09/24 documented as of this encounter
--- OUTSIDE RECORDS SUMMARY | 2024-08-20 15:52 | XMS_ITS | Encounter Summary ---
Author Organization [facility] Address [facility] [place] [address] Care Team Providers Care Decontamination Worker Name Role Phone Rodney Padilla MD Primary Care Provider Reason for Visit * Reason Comments Diabetes Encounter Details Date Type Department Care Team (Late st Contact Info) Description 08/03/2023 1:30 PM EST TH Visit (TeleHealth) Family Medicine at [facility] [address] [place] [phone] Julia Low, [facility] Type 2 diabetes mellitus without long-term [...] are performed sporadically. 3 x weekly. Uses [employer] testing supplies Has Retrophinstyle troy but has never worn and fears being unable to understand the results so elected not to try Interested in Dexcom G7, report approved by insurance. Needs to call [employer] to get an update on shipping Prior Averages: 08/26/21 09/09/21 09/24/21 11/14/21 11/03/22 12/01/22 01/03/23 Daily Avg 157 168 131 138 175 153 176 eA1c 8.20113 8.46 7.20 7.44 8.7 7.95 8.75 Acute [...] (Dexcom G7 Sensor) Device 1 Device by [facility].(Non-Drug; Combo Route) route every10 days. 3 each 11 lamoTRIgine (LaMICtal) 100 mg tablet Take 1.5 tablets by mouth daily. 90 tablet 3 umeclidinium-vilanteroL (Anoro Ellipta) 62.5-25 mcg/actuation Disk with Device Inhale 1 Inhalation into the lungs daily. 3 each 3 inhalational spacing device (Hesham Aerosol Burleigh Enhancer) Spacer 1 each by [facility] [...] tablet 5 fluticasone propionate (Flonase) 50 mcg/actuation [place], Suspension 1 spray by Each Nare route [...] 1:00 PM EST Hospital En[place] [phone] Roland Gooden MD [facility] [place] [address] 08/29/2024 1:00 PM EST - 08/29/2024 2:00 PM EST [place] [phone] Roland Gooden MD [facility] [place] [address] EGD, UPPER GI ENDOSCOPY (WRVU 2.09) 10/02/2024 1:00 PM EDT Office [place] [phone] Juanpablo Hernandez MD [facility] [place] [address] 10/21/2024 9:30 AM EDT Office Visit Internal Medicine at [place] [address] [place] [phone] Daryn Garrett MD [facility] DR LILI [place] [address] 01/30/2025 1:30 PM EDT Laboratory Appointment Lab at [facility] Hematology Oncology [address] [place] [phone] 01/30/2025 3:[address] Scan at [place] [phone] Arturo Cordero MD [facility] DR [place] [address] 01/30/2025 4:15 PM EDT Office Visit [place] [phone] Arturo Cordero MD [facility] DR [place] [address] Scheduled Procedures Name Priority Associated Diagnoses Date/Ti [...] syndrome documented in this encounter Care Teams Decontamination Worker Relationship Specialty Start Date End Date Rodney Padilla MD PCP - General 07/18/22 04/09/24 documented as of this encounter
--- OUTSIDE RECORDS SUMMARY | 2024-08-20 15:52 | XMS_ITS | Encounter Summary ---
Author Organization [facility] Address [facility] [place] [address] Care Team Providers Care Cottage Cheese Maker Name Role Phone Rodney Padilla MD [...] 1:00 PM EST Hospital [place] [address] Roland Gooden MD [facility] [place] [address] 08/29/2024 1:00 PM EST - 08/29/2024 2:00 PM EST [place] [phone] Roland Gooden MD [facility] [place] [address] EGD, UPPER GI ENDOSCOPY (WRVU 2.09) 10/02/2024 1:00 PM EDT Office [place] [phone] Juanpablo Hernandez MD [facility] [address] 10/21/2024 9:30 AM EDT Office Visit Internal Medicine at [facility] [address] [place] [phone] Daryn Garrett MD [facility] DR LILI [place] [address] 01/30/2025 1:30 PM EDT Laboratory Appointment Lab at [facility] Hematology Oncology [address] [place], [place] [phone] 01/30/2025 3:[address] Scan at [place] [phone] Arturo Cordero MD [facility] [place] [address] 01/30/2025 4:15 PM EDT Office Visit Hematology and Oncology at [place] [phone] Arturo Cordero MD [facility] DR [place] [address] Scheduled Procedures Name Priority Associated Diagnoses Date/Ti me EGD, UPPER GI ENDOSCOPY (WRVU 2.09) Irritable bowel syndrome with constipation 08/29/2024 1:00 PM EST COLONOSCOPY, DIAGNOSTIC (WRVU 3.26) Irritable bowel syndrome with constipation 08/29/2024 1:00 PM EST documented as of this encounter Visit Diagnoses Not on filedocumented in this encounter Care Teams Cottage Cheese Maker Relationship Specialty Start Date End Date Rodney Padilla MD PCP - General 07/18/22 04/09/24 documented as of this encounter
--- OUTSIDE RECORDS SUMMARY | 2024-08-20 15:52 | XMS_ITS | Encounter Summary ---
Author Organization [facility] Address [facility] [place] [address] Care Team Providers Care Electric Container Tester Name Role Phone Rodney Padilla MD [...] Description 07/05/2023 Nurse Triage Family Medicine at [facility] [address] [place] [address] Kaela Rodriges hydroelectric station chief Problem (Dr. Padilla wanted her to call [...] 4:46 PM EST Copied from [facility] #[id number]. Topic: Triage - Triage >> Jul 05, 2023 4:29 PM Jackie Zuluaga wrote: Symptom: Appetite Change PCP: RODNEY PADILLA Additional Comments: Patient says that she can't eat while on dulaglutide (Trulicity) 0.75 mg/0.5 mL Pen Injector [[id number]]. She said that it is effecting her gastrointestinal issues. Patient said that she saw a dietitian to check her blood sugar. She would like to speak with someone about this. Please call patient. documented in this encounter Plan of Treatment Upcoming Encounters Date Type Department Care Team (Latest Contact Info) Description 08/29/2024 1:00 PM EST Hospital En[place] [address] Roland Gooden MD [facility] [place] [address] 08/29/2024 1:00 PM EST - 08/29/2024 2:00 PM EST [place] [phone] Roland Gooden MD [facility] [place] [address] EGD, UPPER GI ENDOSCOPY (WRVU 2.09) 10/02/2024 1:00 PM EDT Office Visit Ophthalmology at [place] [phone] Juanpablo Hernandez MD [facility] [place] [address] 10/21/2024 9:30 AM EDT Office Visit Internal Medicine at [address] [phone] Daryn Garrett MD [facility] DR LILI [place] [address] 01/30/2025 1:30 PM EDT Laboratory Appointment Lab at [facility] Hematology Oncology [address] [place] [phone] 01/30/2025 3:[address] [place] [phone] Arturo Cordero MD [facility] [place] [address] 01/30/2025 4:15 PM EDT Office Visit Hematology [place] [phone] Arturo Cordero MD [facility] [place] [address] Scheduled Procedures Name Priority Associated Diagnoses Date/Ti me EGD, UPPER GI ENDOSCOPY (WRVU 2.09) Irritable bowel syndrome with constipation 08/29/2024 1:00 PM EST COLONOSCOPY, DIAGNOSTIC (WRVU 3.26) Irritable bowel syndrome with constipation 08/29/2024 1:00 PM EST documented as of this encounter Visit Diagnoses Not on filedocumented in this encounter Care Teams Electric Container Tester Relationship Specialty Start Date End Date Rodney Padilla MD PCP - General 07/18/22 04/09/24 documented as of this encounter
--- OUTSIDE RECORDS SUMMARY | 2024-08-20 15:52 | XMS_ITS | Encounter Summary ---
Author Organization [facility] Address [facility] [place] [address] Care Team Providers Care Manager Instrumentation Name Role Phone Rodney Padilla MD Primary Care Provider [phone] Reason for Visit * Reason Comments Medication Refill Encounter Details Date Type Department Care Team (Late st Contact Info) Description 02/26/2023 Refill Family Medicine at [facility] [address] [place] [address] Luis E Narayan MD [facility] DR LILI WALKER-[place] [address] Mixed hyperlipidemia Social History Tobacco Use Types [...] 1:00 PM EST Hospital En[place] [phone] Roland Gooden MD [facility] [place] [address] 08/29/2024 1:00 PM EST - 08/29/2024 2:00 PM EST [place] [phone] Roland Gooden MD [facility] [place] [address] EGD, UPPER GI ENDOSCOPY (WRVU 2.09) 10/02/2024 1:00 PM EDT [place] [phone] Juanpablo Hernandez MD [facility] DR [place] [address] 10/21/2024 9:30 AM EDT Office Visit Internal Medicine at [facility] [address] [place] [address] Daryn Garrett MD [facility] DR LILI WALKER - [place] [address] 01/30/2025 1:30 PM EDT Laboratory Appointment Lab at [facility] [place] [place] Hematology Oncology [address] [place] [phone] 01/30/2025 3:[address] [place] [address] Arturo Cordero MD [facility] DR HEMATOLOGY [place] [address] 01/30/2025 4:15 PM EDT Office Visit H[place]ology [place] [address] Arturo Cordero MD [facility] DR HEMATOLOGY [place] [address] Scheduled Procedures Name Priority Associated Diagnoses Date/Ti ak EGD, UPPER GI ENDOSCOPY (WRVU 2.09) Irritable bowel syndrome with constipation 08/29/2024 1:00 PM EST COLONOSCOPY, DIAGNOSTIC (WRVU 3.26) Irritable bowel syndrome with constipation 08/29/2024 1:00 PM EST documented as of this encounter Visit Diagnoses Diagnosis Mixed hyperlipidemia Irritable bowel syndrome with constipation Irritable bowel syndrome documented in this encounter Care Teams Manager Instrumentation Relationship Specialty Start Date End Date Rodney Padilla MD PCP - General 07/18/22 04/09/24 documented as of this encounter
--- OUTSIDE RECORDS SUMMARY | 2024-08-20 15:52 | XMS_ITS | Encounter Summary ---
Author Organization [facility] [place] [address] Care Team Providers Care Chief Of Hospital Medicine Name Role Phone Rodney Padilla MD Primary Care Provider [phone] Reason for Referral * Diagnostic Test (Routine) - Closed Specialty Diagnoses / Procedures Referred By Contac t Referred To Contact Radiology Diagnoses Malignant melanoma of conjunctiva, left Procedures CT Neck Soft Tissue w Contrast (Generic) Tee Lara MD [facility] DR HEMATOLOGY/[place] [address] [facility] [place] [address] Referral ID Status Reason Start Date Expiration Date V isits Requested Visits Authorized [id number] Closed Specialty Service Requested 08/03/2023 01/31/2025 1 1 * Diagnostic Test (Routine) - Closed Specialty Diagnoses / Procedures Referred By Contac t Referred To Contact Radiology Diagnoses Malignant melanoma of conjunctiva, left Procedures CT Chest Abdomen Pelvis w Contrast (Generic) Tee Lara MD [facility] DR HEMATOLOGY/[place] [address] [facility] [place] [address] Referral ID Status Reason Start Date Expiration Date V isits Requested Visits Authorized [id number] Closed Specialty Service Requested 08/03/2023 01/31/2025 1 1 Reason for Visit * Reason Comments Follow-up Encounter Details Date Type Department Care Team (Cornelius st Contact Info) Description 08/03/2023 10:15 AM EST Office Visit Hematology [place] [address] Arturo Cordero MD [facility] DR [place] [address] Nidhi Ceballos, [employer] OFFICER Malignant melanoma of conjunctiva, left; Renal cell [...] from the original note were not included. [facility] NOTE REFERING PHYSICIAN: Dr. Juanpablo [...] management - fall 2018: saw a new hi lift operator and was referred to Dr. 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 Medina - 03/31/2020: saw her hi lift operator Dr. 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 10/09/2007 History of [...] 3.47) performed by Juanpablo Hernandez MD at [facility] OSC PRO EXCIS CORNEA LESN Left 05/14/2020 EXCISION OF LESION, CORNEA, EXCEPT PTERYGIUM (WRVU 7.5) performed by Juanpablo Hernandez MD at [facility] OSC PRO LAP, PARTIAL NEPHRECTOMY Left 06/28/2019 LAPAROSCOPY, PARTIAL NEPHRECTOMY, ROBOTIC ASSIST (WRVU 27.41) performed by Avila Medina MD at [facility] MAIN OR PRO PLACE AMNIOTIC MEMBRANE OCULAR SURFACE;SINGLE LAYER SUTURED Left 05/14/2020 PLACEMENT OF AMNIOTIC MEMBRANE ON THE OCULAR SURFACE,SINGLE LAYER,SUTURED (WRVU 2.5) performed by Juanpablo Hernandez MD at [facility] OSC MEDS: Alcohol Swabs, Blood-Glucose Sensor, [...] with significant other 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, 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 [...] Tee Lara MD PGY 4 Hem/Onc Fellow [facility] ATTENDING NOTE: Clinically she is doing [...] 1:00 PM EST Hospital Encounter Gastroenterology at [place] [phone] Roland Gooden MD [facility] [place] [address] 08/29/2024 1:00 PM EST - 08/29/2024 2:00 PM EST Surgery Gastroenterology at [place] [phone] Roland Gooden MD [facility] [place] [address] EGD, UPPER GI ENDOSCOPY (WRVU 2.09) 10/02/2024 1:00 PM EDT Office Visit Ophthalmology at [place] [phone] Juanpablo Hernandez MD [facility] [place] [address] 10/21/2024 9:30 AM EDT Office Visit Internal Medicine at [address] [phone] Daryn Garrett MD [facility] DR LILI [place] [address] 01/30/2025 1:30 PM EDT Laboratory Appointment Lab at [facility] Hematology Oncology [address] [place] [phone] 01/30/2025 3:[address] [place] [address] Arturo Cordero MD [facility] [place] [address] 01/30/2025 4:15 PM EDT Office Visit Hematology [place] [address] Arturo Cordero MD [facility] DR [place] [address] Scheduled Procedures Name Priority Associated Diagnoses Date/Ti me EGD, UPPER GI ENDOSCOPY (WRVU 2.09) Irritable bowel syndrome with constipation 08/29/2024 1:00 PM EST COLONOSCOPY, DIAGNOSTIC (WRVU 3.26) Irritable bowel syndrome with constipation 08/29/2024 1:00 PM EST documented as of this encounter Results * CT Neck Soft Tissue w Contrast (Generic) (02/01/2024 10:24 AM EDT) WORKSTATION ID [id number] RAD Anatomical Region Laterality Modality Neck, Head [...] who have questions please contact the health residential caregiver that requested your imaging first. ? Narrative [...] patients who have questions please contactthe health residential caregiver that requested your imaging first. Electronically signed by: Dipika Palacios [facility]([phone]), at 02/02/2024 4:32 PM Arturo Cordero MD IMG CT ORDERABLES * CT Chest Abdomen Pelvis w Contrast (Generic) (02/01/2024 10:24 AM EDT) WORKSTATION ID [id number] RAD Anatomical Region Laterality Modality Abdomen, Pelvis [...] who have questions please contact the health residential caregiver that requested your imaging first. ? Electronically signed by: Leo Camilo MD, [facility] ([phone]), at 02/02/2024 9:52 AM Narrative 02/02/2024 9:52 [...] patients who have questions please contactthe health residential caregiver that requested your imaging first. Arturo Cordero MD IMG CT ORDERABLES * Lactate Dehydrogenase (02/01/2024 8:19 AM EDT) Lactate Dehydrogenase 195 110 - 220 unit/L [facility] Blood 02/01/2024 8:19 AM EDT 02/01/2024 8:39 AM EDT Narrative Resulting Agency Comment Spec In Lab Arturo Cordero MD CHEMISTRY ORDERABLES Performing Organization Address City/State/[facility] Co de Phone Number [facility] [place] [address] * Comprehensive metabolic panel (non-fasting) (02/01/2024 8:19 [...] Cordero MD CHEMISTRY ORDERABLES [facility] [place] [address] documented in this encounter Visit Diagnoses Diagnosis Malignant melanoma of conjunctiva, left Renal cell cancer, left Lung nodule Solitary pulmonary nodule Malignant melanoma of conjunctiva, left Irritable bowel syndrome with constipation Irritable bowel syndrome documented in this encounter Care Teams Chief Of Hospital Medicine Relationship Specialty Start Date End Date Rodney Padilla MD PCP - General 07/18/22 04/09/24 documented as of this encounter
--- OUTSIDE RECORDS SUMMARY | 2024-08-20 15:52 | XMS_ITS | Encounter Summary ---
Author Organization [facility] [place] [address] Care Team Providers Care Stone Setter Name Role Phone Rodney Padilla MD Primary Care Provider [phone] Reason for Visit * Reason Onset Date Comments Leg Swelling 04/14/2023 Encounter Details Date Type Department Care Team (Late st Contact Info) Description 04/14/2023 Nurse Triage Family Medicine at [facility] [address] [place] [address] Rani Menard, RN Leg Swelling Social History [...] - 04/14/2023 3:56 PM EDT Copied from [facility] #[id number]. Topic: Triage - Triage >> Apr 14, [...] 1:00 PM EST Hospital Encounter [place] [phone] Roland Gooden MD [facility] [place] [address] 08/29/2024 1:00 PM EST - 08/29/2024 2:00 PM EST Surgery [place] [phone] Roland Gooden MD [facility] [place] [address] EGD, UPPER GI ENDOSCOPY (WRVU 2.09) 10/02/2024 1:00 PM EDT Office [place] [phone] Juanpablo Hernandez MD [facility] [place] [address] 10/21/2024 9:30 AM EDT Office Visit Internal Medicine at [address] [address] Daryn Garrett MD [facility] DR LILI [place] [address] 01/30/2025 1:30 PM EDT Laboratory Appointment Lab at [facility] [place] On[place] [address] [place] [phone] 01/30/2025 3:[address] [place] [phone] Arturo Cordero MD [facility] [place] [address] 01/30/2025 4:15 PM EDT Office Visit Hematology [place] [phone] Arturo Cordero MD [facility] DR [place] [address] Scheduled Procedures Name Priority Associated Diagnoses Date/Ti me EGD, UPPER GI ENDOSCOPY (WRVU 2.09) Irritable bowel syndrome with constipation 08/29/2024 1:00 PM EST COLONOSCOPY, DIAGNOSTIC (WRVU 3.26) Irritable bowel syndrome with constipation 08/29/2024 1:00 PM EST documented as of this encounter Visit Diagnoses Not on filedocumented in this encounter Care Teams Stone Setter Relationship Specialty Start Date End Date Rodney Padilla MD PCP - General 07/18/22 04/09/24 documented as of this encounter
--- OUTSIDE RECORDS SUMMARY | 2024-08-20 15:52 | XMS_ITS | Encounter Summary ---
Author Organization [facility] Address [facility] [place] [address] Care Team Providers Care Typewriter Tester Name Role Phone Rodney Padilla MD Primary Care Provider Reason for Visit * Reason Onset Date Comments Medication Refill 03/21/2023 Encounter Details Date Type Department Care Team (Late st Contact Info) Description 03/21/2023 Refill Family Medicine at [facility] [address] [place] [address] Suzanne Martinez APRN [facility] DR LILI [place] [address] Social History Tobacco Use Types Packs/Day Years [...] 1:00 PM EST Hospital En[place] [phone] Roland Gooden MD [facility] [place] [address] 08/29/2024 1:00 PM EST - 08/29/2024 2:00 PM EST [place] [phone] Roland Gooden MD [facility] [place] [address] EGD, UPPER GI ENDOSCOPY (WRVU 2.09) 10/02/2024 1:00 PM EDT Office [place] [phone] Juanpablo Hernandez MD [facility] [place] [address] 10/21/2024 9:30 AM EDT Office Visit Internal Medicine at [facility] [address] [place] [address] Daryn Garrett MD [facility] DR LILI [place] [address] 01/30/2025 1:30 PM EDT Laboratory Appointment Lab at [facility] [place] Oncology [address] [place] [phone] 01/30/2025 3:[address] [place] [phone] Arturo Cordero MD [facility] DR [place] [address] 01/30/2025 4:15 PM EDT Office Visit Hematology [place] [address] Arturo Cordero MD [facility] DR [place] [address] Scheduled Procedures Name Priority Associated Diagnoses Date/Ti [...]
--- OUTSIDE RECORDS SUMMARY | 2024-08-20 15:52 | XMS_ITS | Encounter Summary ---
Author Organization [facility] Address [place] [address] Care Team Providers Care Insurance Verification Specialist Name Role Phone Rodney Padilla MD Primary Care Provider [phone] Reason for Visit * Reason Comments Other Leg fluid Diabetes Encounter Details Date Type Department Care Team (Latest Contact Info) Description 04/17/2023 4:00 PM EDT Office Visit Family Medicine at [facility] [address] [place] [address] Rodney Padilla MD [address] [place] [address] [place] [address] Edema, unspecified type; Diabetic polyneuropathy associated with [...] tablet 5 fluticasone propionate (Flonase) 50 mcg/actuation [place], Suspension 1 spray by Each Nare route [...] Referring and communicating with other health director of career services Documenting clinical information in the electronic or other health record Independently interpreting results Care coordination documented in this encounter Plan of Treatment Upcoming Encounters Date Type Department Care Team (Latest Contact Info) Description 08/29/2024 1:00 PM EST Hospital Encounter [place] [address] Roland Gooden MD [facility] [place] [address] 08/29/2024 1:00 PM EST - 08/29/2024 2:00 PM EST Surgery Gastroenterology at [place] [phone] Roland Gooden MD [facility] [place] [address] EGD, UPPER GI ENDOSCOPY (WRVU 2.09) 10/02/2024 1:00 PM EDT Office Visit Ophthalmology at [place] [phone] Juanpablo Hernandez MD [facility] [place] [address] 10/21/2024 9:30 AM EDT Office Visit Internal Medicine at [address] [phone] Daryn Garrett MD [facility] DR LILI [place] [address] 01/30/2025 1:30 PM EDT Laboratory Appointment Lab at [facility] [place] On[place] [address] [place], [place] [phone] 01/30/2025 3:[address] [place] [address] Arturo Cordero MD [facility] [place] [address] 01/30/2025 4:15 PM EDT Office Visit Hematology [place] [address] Arturo Cordero MD [facility] [place] [address] Scheduled Procedures Name Priority Associated Diagnoses Date/Ti [...] Unspecified disorder of skin and subcutaneous tissue Irritable bowel syndrome with constipation Irritable bowel syndrome documented in this encounter Care Teams Insurance Verification Specialist Relationship Specialty Start Date End Date Rodney Padilla MD PCP - General 07/18/22 04/09/24 documented as of this encounter
--- OUTSIDE RECORDS SUMMARY | 2024-08-20 15:52 | XMS_ITS | Encounter Summary ---
Author Organization [facility] [place] [address] Care Team Providers Care Chief Fundraising Officer Name Role Phone Rodney Padilla MD Primary Care Provider Reason for Visit * Reason Comments Eye Problem Encounter Details Date Type Department Care Team (Late st Contact Info) Description 02/22/2023 12:45 PM EDT Office Visit [place] [address] Juanpablo Hernandez MD [facility] [place] [address] Malignant melanoma of conjunctiva, left Social History [...] No 06/14/2021 Housing Stability Vital Sign Answer Oizel e Recorded In the last 12 months, [...] encounter Patient Instructions * Patient Instructions* Juanpablo Henrandez MD - 02/22/2023 12:45 PM EDT Medications: [...] (Latest Contact Info) Description 08/29/2024 1:00 PM [facility] Hospital Encounter [place] [phone] Roland Gooden MD [facility] [place] [address] 08/29/2024 1:00 PM EST - 08/29/2024 2:00 PM EST Surgery Gastroenterology at [address] Roland Gooden MD [facility] [place] [address] EGD, UPPER GI ENDOSCOPY (WRVU 2.09) 10/02/2024 1:00 PM EDT Office Visit Ophthalmology at [place] [phone] Juanpablo Hernandez MD [facility] [place] [address] 10/21/2024 9:30 AM EDT Office Visit Internal Medicine at [address] [phone] Daryn Garrett MD [facility] [address] 01/30/2025 1:30 PM EDT Laboratory Appointment Lab [place] [facility] [place] [address] [place], [place] [phone] 01/30/2025 3:[address] Scan at [place] [phone] Arturo Cordero MD [facility] [place] [address] 01/30/2025 4:15 PM EDT Office Visit Hematology and Oncology at [place] [phone] Arturo Cordero MD [facility] [place] [address] Scheduled Procedures Name Priority Associated Diagnoses Date/Ti [...] documented in this encounter Care Teams Chief Fundraising Officer Relationship Specialty Start Date End Date Rodney Padilla MD PCP - General 07/18/22 04/09/24 documented as of this encounter
--- OUTSIDE RECORDS SUMMARY | 2024-08-20 15:52 | XMS_ITS | Encounter Summary ---
Author Organization [facility] Address [facility] [place] [address] Care Team Providers Care Fern Cutter Name Role Phone Rodney Padilla MD Primary Care Provider Reason for Visit * Reason Comments Medication Refill Encounter Details Date Type Department Care Team (Late st Contact Info) Description 02/26/2023 Refill Family Medicine at [facility] [address] [place] [address] Tamera Khan, [facility] [place] [address] Type 2 diabetes mellitus with hyperglycemia, without [...] 1:00 PM EST Hospital En[place] [phone] Roland Gooden MD [facility] [place] [address] 08/29/2024 1:00 PM EST - 08/29/2024 2:00 PM EST Surgery Gastroenterology at [place] [phone] Roland Gooden MD [facility] [place] [address] EGD, UPPER GI ENDOSCOPY (WRVU 2.09) 10/02/2024 1:00 PM EDT [place] [phone] Juanpablo Hernandez MD [facility] [place] [address] 10/21/2024 9:30 AM EDT Office Visit Internal Medicine at [address] [phone] Daryn Garrett MD [facility] DR LILI WALKER [place] [address] 01/30/2025 1:30 PM EDT Laboratory Appointment [place] [facility] [place] [address] [place] [phone] 01/30/2025 3:[address] [place] [address] Arturo Cordero MD [facility] DR HEMATOLOGY [place] [address] 01/30/2025 4:15 PM EDT Office Visit [place]ology [place] [address] Arturo Cordero MD [facility] DR HEMATOLOGY [place] [address] Scheduled Procedures Name Priority Associated Diagnoses Date/Ti nj EGD, UPPER GI ENDOSCOPY (WRVU 2.09) Irritable bowel syndrome with constipation 08/29/2024 1:00 PM EST COLONOSCOPY, DIAGNOSTIC (WRVU 3.26) Irritable bowel syndrome with constipation 08/29/2024 1:00 PM EST documented as of this encounter Visit Diagnoses Diagnosis Type 2 diabetes mellitus with hyperglycemia, without long-term current use of insulin Irritable bowel syndrome with constipation Irritable bowel syndrome documented in this encounter Care Teams Fern Cutter Relationship Specialty Start Date End Date Rodney Padilla MD PCP - General 07/18/22 04/09/24 documented as of this encounter
--- OUTSIDE RECORDS SUMMARY | 2024-08-20 15:52 | XMS_ITS | Encounter Summary ---
Author Organization [facility] Address [facility] [place] [address] Care Team Providers Care Head Cager Name Role Phone Daryn Garrett MD Primary Care Provider Reason for Visit * Reason Comments Medication Refill Encounter Details Date Type Department Care Team (Late st Contact Info) Description 05/16/2023 Refill [address] Medicine at [facility] [address] [place] [address] Tamera Khan APRN [facility] DR LILI [place] [address] Type 2 diabetes mellitus with hyperglycemia, without [...] 1:00 PM EST Hospital Encounter Gastroenterology at [place] [phone] oRland Gooden MD [facility] [place] [address] 08/29/2024 1:00 PM EST - 08/29/2024 2:00 PM EST Surgery Gastroenterology at [place] [phone] Roland Gooden MD [facility] [place] [address] EGD, UPPER GI ENDOSCOPY (WRVU 2.09) 10/02/2024 1:00 PM EDT Office [place] [phone] Juanpablo Hernandez MD [facility] [place] [address] 10/21/2024 9:30 AM EDT Office Visit Internal Medicine at [address] [phone] Daryn Garrett MD [facility] DR LILI [place] [address] 01/30/2025 1:30 PM EDT Laboratory Appointment Lab at [facility] [place] [place] Hematology Oncology [address] [place] [phone] 01/30/2025 3:[address] [place] [address] Arturo Cordero MD [facility] [place] [address] 01/30/2025 4:15 PM EDT Office Visit Hematology and Oncology at [facility] [place] [address] Arturo Cordero MD [facility] [place]AT[place] [address] Scheduled Procedures Name Priority Associated Diagnoses Date/Ti [...] syndrome documented in this encounter Care Teams Head Cager Relationship Specialty Start Date End Date Daryn Garrett MD [facility] DR LILI [place] [address] PCP - General 04/10/24 documented as of this encounter
--- OUTSIDE RECORDS SUMMARY | 2024-08-20 15:52 | XMS_ITS | Encounter Summary ---
Author Organization [facility] Address [facility] [place] [address] Care Team Providers Care Computer Numeric Control Setter Name Role Phone Rodney Padilla MD [...] 1:00 PM EST Hospital Encounter [place] [address] Roland Gooden MD [facility] [place] [address] 08/29/2024 1:00 PM EST - 08/29/2024 2:00 PM EST Surgery [place] [phone] Roland Gooden MD [facility] [place] [address] EGD, UPPER GI ENDOSCOPY (WRVU 2.09) 10/02/2024 1:00 PM EDT Office Visit [place] [phone] Juanpablo Hernandez MD [facility] [place] [address] 10/21/2024 9:30 AM EDT Office Visit Internal Medicine at [facility] [address] [place] [phone] Daryn Garrett MD [facility] DR LILI [place] [address] 01/30/2025 1:30 PM EDT Laboratory Appointment Lab [place] [facility] [place] [address] [place], [place] [phone] 01/30/2025 3:[address] Scan at [place] [phone] Arturo Cordero MD [facility] [place] [address] 01/30/2025 4:15 PM EDT Office Visit Hematology and Oncology at [place] [phone] Arturo Cordero MD [facility] DR [place] [address] Scheduled Procedures Name Priority Associated Diagnoses Date/Ti me EGD, UPPER GI ENDOSCOPY (WRVU 2.09) Irritable bowel syndrome with constipation 08/29/2024 1:00 PM EST COLONOSCOPY, DIAGNOSTIC (WRVU 3.26) Irritable bowel syndrome with constipation 08/29/2024 1:00 PM EST documented as of this encounter Visit Diagnoses Not on filedocumented in this encounter Care Teams Computer Numeric Control Setter Relationship Specialty Start Date End Date Rodney Padilla MD PCP - General 07/18/22 04/09/24 documented as of this encounter
--- OUTSIDE RECORDS SUMMARY | 2024-08-20 15:52 | XMS_ITS | Encounter Summary ---
Author Organization [facility] [place] [address] Care Team Providers Care Sub Acute Care Nurse Name Role Phone Rodney Padilla MD Primary Care Provider Encounter Details Date Type Department Care Team (Latest Contact Info) Description 02/28/2023 4:00 PM EDT TH Visit (TeleHealth) Family Medicine at [facility] [address] [place] [address] Rodney Padilla MD [address] [place] [address] [place] [address] Type 2 diabetes mellitus without complication, with [...] VISIT Patient location: Home address on file: [address] [place] [phone] Mode of communication documented under telehealth requirements as appropriate Callback number if video visit: Preferred phone number on file: [phone] CHART REVIEW Patient unable to come to [...] List Diagnosis Code 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 Altered mental [...] tablet 5 fluticasone propionate (Flonase) 50 mcg/actuation [place], Suspension 1 spray by Each Nare route [...] patient/family/caregiver Referring and communicating with other health direct care provider Documenting clinical information in the electronic or other health record Independently interpreting results Care coordination documented in this encounter Plan of Treatment Upcoming Encounters Date Type Department Care Team (Latest Contact Info) Description 08/29/2024 1:00 PM EST Hospital Encounter [place] [address] Roland Gooden MD [facility] [place] [address] 08/29/2024 1:00 PM EST - 08/29/2024 2:00 PM EST Surgery [place] [address] Roland Gooden MD [facility] [place] [address] EGD, UPPER GI ENDOSCOPY (WRVU 2.09) 10/02/2024 1:00 PM EDT Office [place] [address] Juanpablo Hernandez MD [facility] [place] [address] 10/21/2024 9:30 AM EDT Office Visit Internal Medicine at [place] [address] [place] [address] Daryn Garrett MD [facility] DR LILI [place] [address] 01/30/2025 1:30 PM EDT Laboratory Appointment Lab at [facility] [place] [address] [place] [phone] 01/30/2025 3:[address] [place] [phone] Arturo Cordero MD [facility] DR [place]EMAT[place] [address] 01/30/2025 4:15 PM EDT Office Visit Hematology [place] [address] Arturo Cordero MD [facility] DR HEMATOLOG[place] [address] Scheduled Procedures Name Priority Associated Diagnoses Date/Ti [...] syndrome documented in this encounter Care Teams Sub Acute Care Nurse Relationship Specialty Start Date End Date Rodney Padilla MD PCP - General 07/18/22 04/09/24 documented as of this encounter
--- OUTSIDE RECORDS SUMMARY | 2024-08-20 15:52 | XMS_ITS | Encounter Summary ---
Author Organization [facility] [place] [address] Care Team Providers Care Elevator Mechanic Name Role Phone Rodney Padilla MD Primary Care Provider Reason for Visit * Reason Comments Melanoma Malignant melanoma o f conjunctiva, left Encounter Details Date Type Department Care Team (Late st Contact Info) Description 07/26/2023 12:30 PM EST Office [place] [address] Juanpablo Hernandez MD [facility] [place] [address] Malignant melanoma of conjunctiva, left; Type 2 [...] 1:00 PM EST Hospital Encounter Gastroenterology at [place] [phone] Roland Gooden MD [facility] [place] [address] 08/29/2024 1:00 PM EST - 08/29/2024 2:00 PM EST Surgery Gastroenterology at [place] [phone] Roland Gooden MD [facility] [place] [address] EGD, UPPER GI ENDOSCOPY (WRVU 2.09) 10/02/2024 1:00 PM EDT Office [place] [phone] Juanpablo Hernandez MD [facility] [place] [address] 10/21/2024 9:30 AM EDT Office Visit Internal Medicine at [address] [phone] Daryn Garrett MD [facility] DR LILI [place] [address] 01/30/2025 1:30 PM EDT Laboratory Appointment Lab at [facility] [place] Hematology Oncology [address] [place] [phone] 01/30/2025 3:[address] [place] [phone] Arturo Cordero MD [facility] HEMATOLOGY [place] [address] 01/30/2025 4:15 PM EDT Office Visit H[place]ology [place] [address] Arturo Cordero MD [facility] DR HEMATOLOGY [place] [address] Scheduled Procedures Name Priority Associated Diagnoses Date/Ti [...] syndrome documented in this encounter Care Teams Elevator Mechanic Relationship Specialty Start Date End Date Rodney Padilla MD PCP - General 07/18/22 04/09/24 documented as of this encounter
--- OUTSIDE RECORDS SUMMARY | 2024-08-20 15:52 | XMS_ITS | Encounter Summary ---
Author Organization [facility] [address] Care Team Providers Care Wagon Drill Operator Name Role Phone Rodney Padilla MD Primary Care Provider Encounter Details Date Type Department Care Team (Latest Contact Info) Description 06/20/2023 2:00 PM EST Office Visit Family Medicine at [facility] [address] [place] [address] Rodney Padilla MD [address] [facility] [place] [address] Diabetic polyneuropathy associated with type 2 diabetes [...] tablet 5 fluticasone propionate (Flonase) 50 mcg/actuation [place], Suspension 1 spray by Each Nare route [...] patient/family/caregiver Referring and communicating with other health residential child care counselor Documenting clinical information in the electronic or other health record Independently interpreting results Care coordination documented in this encounter Plan of Treatment Upcoming Encounters Date Type Department Care Team (Latest Contact Info) Description 08/29/2024 1:00 PM EST Hospital En[place] [address] Roland Gooden MD [facility] [place] [address] 08/29/2024 1:00 PM EST - 08/29/2024 2:00 PM EST Surgery Gastroenterology at [address] Roland Gooden MD [facility] [place] [address] EGD, UPPER GI ENDOSCOPY (WRVU 2.09) 10/02/2024 1:00 PM EDT Office Visit Ophthalmology at [place] [phone] Juanpablo Hernandez MD [facility] [place] [address] 10/21/2024 9:30 AM EDT Office Visit Internal Medicine at [address] [phone] Daryn Garrett MD [facility] [place] [address] 01/30/2025 1:30 PM EDT Laboratory Appointment Lab at [facility] Hematology Oncology [address] [place], [place] [phone] 01/30/2025 3:[address] Scan at [place] [phone] Arturo Cordero MD [facility] [place] [address] 01/30/2025 4:15 PM EDT Office Visit Hematology and Oncology at [place] [phone] Arturo Cordero MD [facility] [place] [address] Scheduled Procedures Name Priority Associated Diagnoses Date/Ti [...] PFT FEV1/FVC Pre-BD Z-Score -0.96 COMPAS PFT VJJ85-65 Actual Pre-BD 0.88 % COMPAS PFT IVN21-88 Predicted 2.06 % COMPAS PFT WNW51-54 Pre-BD % of Predicted 43 % COMPAS PFT FCE05-82 Pre-BD Z-Score -1.92 COMPAS PFT DLCO Hb [...] Urine 6 0 - 29 mcg/mg Cr [facility] Comment: Reference Ranges: <30 mcg/mg: Normal [...] 2, 357? 362 Albumin, Urine 7.3 mg/L [facility] Creatinine, Urine 119 mg/dL [facility] Urine 06/20/2023 4:05 PM EST 06/20/2023 4:25 PM EST Narrative Resulting Agency Comment Spec In Lab Rodney Padilla MD URINE ORDERABLES [facility] [place] [address] * Lipid Panel (Reflex Direct LDL) (06/20/2023 3:58 PM EST) Cholesterol, Total 141 mg/dL [facility] Comment: Lower Risk: <200 mg/dL Average Risk: 200-239 mg/dL Higher Risk: >iu=865 mg/dL Triglyceride 96 mg/dL [facility] Comment: Average Risk/Lower Risk: <150 mg/dL Borderline High Risk: 150-199 mg/dL High Risk: 200-499 mg/dL Very High Risk: >ba=494 mg/dL HDL Cholesterol 41 mg/dL [facility] Comment: Males: ?? Higher Risk: <40 mg/dL Females: ?? Higher Risk: <50 mg/dL LDL Cholesterol 81 mg/dL [facility] Comment: Lowest Risk: <100 mg/dL Lower Risk: 100-129 mg/dL Borderline High Risk: 130-159 mg/dL High Risk: 160-189 mg/dL Very High Risk: >ir=686 mg/dL Cholesterol/HDL Ratio 3.[address] [facility] Lipid Interpretation See Note [facility] Comment: Lipid management should be guided by a patient? s ASCVD risk, goals and preferences. ACC/AHA Guidelines recommend high intensity statin if clinical ASCVD or LDL greater than or equal to 190 mg/dL. http://[employer]com/DRD-FMI-Scwofbrof Adults aged 40-75 with LDL 70-189 mg/dL should have their 10 year ASCVD risk estimated with the ACC/AHA ASCVD risk manufacturing cost estimator http://tools.acc.org/THUHE-Nxnw-Bzlpttsch/ Statin should be discussed if risk greater [...] Lab Rodney Padilla MD CHEMISTRY ORDERABLE S [facility] [place] [address] * Basic Metabolic Panel (non-fasting) (06/20/2023 3:58 PM EST) Glucose 142 65 - 199 mg/dL [facility] Comment:Diabetes: >=200 mg/d L plus symptoms Blood Urea Nitrogen 11 8 - 18 mg/dL [facility] Creatinine 0.89 0.70 - 1.20 mg/dL [facility] Sodium 144 135 - 145 mmol/L [facility] Potassium 4.3 3.5 - 5.0 mmol/L [facility] Comment: Please note: ??Patients with WBC >100,000 may have falsely elevated Potassium levels. ??For accurate Potassium quantification in these patients send serum separator tube (gold top) for subsequent determinations. ??Contact the Clinical Chemistry Laboratory if there are any questions. Chloride 106 98 - 107 mmol/L [facility] Carbon Dioxide 25 22 - 31 mmol/L [facility] Anion Gap 13 5 - 15 mmol/L [facility] Calcium 9.3 8.5 - 10.5 mg/dL [facility] Est Glomerular Filtration Rate 73 >=60 mL/min/1. 73 m?? [facility] Comment: This patient's estimated GFR was [...] Lab Rodney Padilla MD CHEMISTRY ORDERABLE S [facility] [place] [address] * (ABNORMAL) Hemoglobin A1c (06/20/2023 3:58 PM EST) Hemoglobin A1c 9.4(H) 4.3 - 5.6 % [facility] Comment: Reference Range: 4.3 - 5.6% [...] Mellitus, Diabetes Care 2013; 36: Suppl. 1, K19-51 Estimated Average Glucose 222 mg/dL [facility] Comment: Note: The eAG calculation has not been proven valid for women, individuals below 18 years old or above 70 years old, or individuals with hemoglobinopathies. Estimated average glucose (eAG) is calculated from the equation described in: Yahir GRADY, Bernadette J, Tahira R, et al. ??Translating the A1C assay into estimated average glucose values. ??Diabetes Care 2008:31(8):2120-5721. Additional resources are available on the ADA website (diabetes.org). Blood 06/20/2023 3:58 PM EST 06/20/2023 4:08 PM EST Narrative Resulting Agency Comment Spec In Lab Rodney Padilla MD CHEMISTRY ORDERABLE S [place] [phone] documented in this encounter Visit Diagnoses Diagnosis [...] syndrome documented in this encounter Care Teams Wagon Drill Operator Relationship Specialty Start Date End Date Rodney Padilla MD PCP - General 07/18/22 04/09/24 documented as of this encounter
--- OUTSIDE RECORDS SUMMARY | 2024-08-20 15:52 | XMS_ITS | Encounter Summary ---
Author Organization [facility] [place] [address] Care Team Providers Care Forging Operator Name Role Phone Rodney Padilla MD Primary Care Provider Reason for Visit * Reason Onset Date Comments Medication Refill 05/24/2023 Encounter Details Date Type Department Care Team (Late st Contact Info) Description 05/24/2023 Refill Family Medicine at [facility] [address] [place] [address] Rodney Padilla MD [address] [place] [address] [place] [facility] [address] Social History Tobacco Use Types Packs/Day [...] clinic to reach out to the Pharmacy: [address] Patient declined scheduling an appointment: 06/20/23 next appt Ask caller their first and last name and relationship to the patient: self Best time to call back: any Ok to leave a message: Ok to send [facility] message: Did you contact your pharmacy: Patient states pharmacy says no more refills documented in this encounter Plan of Treatment Upcoming Encounters Date Type Department Care Team (Latest Contact Info) Description 08/29/2024 1:00 PM EST Hospital Encounter [place] [address] Roland Gooden MD [facility] [place] [address] 08/29/2024 1:00 PM EST - 08/29/2024 2:00 PM EST Surgery Gastroenterology at [address] Roland Gooden MD [facility] [place] [address] EGD, UPPER GI ENDOSCOPY (WRVU 2.09) 10/02/2024 1:00 PM EDT Office Visit Ophthalmology at [place] [phone] Juanpablo Hernandez MD [facility] [place] [address] 10/21/2024 9:30 AM EDT Office Visit Internal Medicine at [address] [phone] Daryn Garrett MD [facility] [place] [address] 01/30/2025 1:30 PM EDT Laboratory Appointment Lab at [facility] Hematology Oncology [address] [place], [place] [phone] 01/30/2025 3:[address] Scan at [place] [phone] Arturo Cordero MD [facility] H[place]ATOLOGY [place] [address] 01/30/2025 4:15 PM EDT Office Visit Hematology and Oncology at [place] [phone] Arturo Cordero MD [facility] [place] [address] Scheduled Procedures Name Priority Associated Diagnoses Date/Ti me EGD, UPPER GI ENDOSCOPY (WRVU 2.09) Irritable bowel syndrome with constipation 08/29/2024 1:00 PM EST COLONOSCOPY, DIAGNOSTIC (WRVU 3.26) Irritable bowel syndrome with constipation 08/29/2024 1:00 PM EST documented as of this encounter Visit Diagnoses Not on filedocumented in this encounter Care Teams Forging Operator Relationship Specialty Start Date End Date Rodney Padilla MD PCP - General 07/18/22 04/09/24 documented as of this encounter
--- OUTSIDE RECORDS SUMMARY | 2024-08-20 15:52 | XMS_ITS | Encounter Summary ---
Author Organization [facility] Address [facility] [place] [address] Care Team Providers Care Horticultural Specialty Grower Field Name Role Phone Rodney Padilla MD Primary Care Provider Reason for Visit * Reason Onset Date Comments Medication Refill 03/21/2023 Encounter Details Date Type Department Care Team (Late st Contact Info) Description 03/21/2023 Refill Family Medicine at [facility] [address] [place] [address] Tamera Khan APRN [facility] DR LILI [place] [address] Social History Tobacco Use Types Packs/Day Years [...] 1:00 PM EST Hospital Encounter Gastroenterology at [place] [phone] Roland Gooden MD [facility] [place] [address] 08/29/2024 1:00 PM EST - 08/29/2024 2:00 PM EST Surgery [place] [phone] Roland Gooden MD [facility] [place] [address] EGD, UPPER GI ENDOSCOPY (WRVU 2.09) 10/02/2024 1:00 PM EDT Office [place] [phone] Juanpablo Hernandez MD [facility] [place] [address] 10/21/2024 9:30 AM EDT Office Visit Internal Medicine at [address] [phone] Daryn Garrett MD [facility] DR LIL[place] [address] 01/30/2025 1:30 PM EDT Laboratory Appointment Lab at [facility] Hematology Oncology [address] [place] [phone] 01/30/2025 3:[address] [place] [address] Arturo Cordero MD [facility] [place] [address] 01/30/2025 4:15 PM EDT Office Visit Hematology [place] [address] Arturo Cordero MD [facility] DR [place] [address] Scheduled Procedures Name Priority Associated Diagnoses Date/Ti me EGD, UPPER GI ENDOSCOPY (WRVU 2.09) Irritable bowel syndrome with constipation 08/29/2024 1:00 PM EST COLONOSCOPY, DIAGNOSTIC (WRVU 3.26) Irritable bowel syndrome with constipation 08/29/2024 1:00 PM EST documented as of this encounter Visit Diagnoses Not on filedocumented in this encounter Care Teams Horticultural Specialty Grower Field Relationship Specialty Start Date End Date Rodney Padilla MD PCP - General 07/18/22 04/09/24 documented as of this encounter
--- OUTSIDE RECORDS SUMMARY | 2024-08-20 15:52 | XMS_ITS | Encounter Summary ---
Author Organization [facility] Address [facility] [place] [address] Care Team Providers Care Fittings Finisher Name Role Phone Rodney Padilla MD [...] 1:00 PM EST Hospital Encounter [place] [address] Roland Gooden MD [facility] [place] [address] 08/29/2024 1:00 PM EST - 08/29/2024 2:00 PM EST Surgery [place] [phone] Roland Gooden MD [facility] [place] [address] EGD, UPPER GI ENDOSCOPY (WRVU 2.09) 10/02/2024 1:00 PM EDT Office [place] [phone] Juanpablo Hernandez MD [facility] [place] [address] 10/21/2024 9:30 AM EDT Office Visit Internal Medicine at [facility] [address] [place] [phone] Daryn Garrett MD [facility] DR LILI [place] [address] 01/30/2025 1:30 PM EDT Laboratory Appointment Lab at [facility] Hematology Oncology [address] [place], [place] [phone] 01/30/2025 3:[address] Scan at [place] [phone] Arturo Cordero MD [facility] [place] [address] 01/30/2025 4:15 PM EDT Office Visit Hematology and Oncology at [place] [phone] Arturo Cordero MD [facility] DR [place] [address] Scheduled Procedures Name Priority Associated Diagnoses Date/Ti me EGD, UPPER GI ENDOSCOPY (WRVU 2.09) Irritable bowel syndrome with constipation 08/29/2024 1:00 PM EST COLONOSCOPY, DIAGNOSTIC (WRVU 3.26) Irritable bowel syndrome with constipation 08/29/2024 1:00 PM EST documented as of this encounter Visit Diagnoses Not on filedocumented in this encounter Care Teams Fittings Finisher Relationship Specialty Start Date End Date Rodney Padilla MD PCP - General 07/18/22 04/09/24 documented as of this encounter
--- OUTSIDE RECORDS SUMMARY | 2024-08-20 15:52 | XMS_ITS | Encounter Summary ---
Author Organization [facility] [place] [address] Care Team Providers Care Speech Language Pathologist Assistant Name Role Phone Rodney Padilla MD Primary Care Provider Reason for Visit * Reason Onset Date Comments Medication Refill 06/13/2023 Encounter Details Date Type Department Care Team (Late st Contact Info) Description 06/13/2023 Refill Family Medicine at [facility] [address] [place] [address] Rodney Padilla MD [address] [place] [address] [place] [address] Essential hypertension Social History Tobacco Use [...] pharmacy for refills. * Telephone Encounter - [facility]co D[place] - 06/13/2023 10:54 AM EST [...] Rodney Padilla MD Pharmacy Name & Location: [facility] [address] [place] [address] Caller would like clinic to reach out to the Pharmacy: Yes Patient declined scheduling an appointment: Last office visit 04/17/2023 Ask caller their first and last name and relationship to the patient: Alize Gramajo Patient Best time to call back: Any Ok to leave a message: - Ok to [facility]: - Did you contact your pharmacy: unknown documented in this encounter Plan of Treatment Upcoming Encounters Date Type Department Care Team (Latest Contact Info) Description 08/29/2024 1:00 PM EST Hospital Encounter Gastroenterology at [place] [phone] Roland Gooden MD [facility] [place] [address] 08/29/2024 1:00 PM EST - 08/29/2024 2:00 PM EST Surgery Gastroenterology at [place] [phone] Roland Gooden MD [facility] [place] [address] EGD, UPPER GI ENDOSCOPY (WRVU 2.09) 10/02/2024 1:00 PM EDT Office [place] [address] Juanpablo Hernandez MD [facility] [place] [address] 10/21/2024 9:30 AM EDT Office Visit Internal Medicine at [address] [phone] Daryn Garrett MD [facility] DR LILI [place] [address] 01/30/2025 1:30 PM EDT Laboratory Appointment Lab at [facility] Hematology Oncology [address] [place] [phone] 01/30/2025 3:[address] [place] [address] Arturo Cordero MD [facility] HEMATOLOGY [place] [address] 01/30/2025 4:15 PM EDT Office Visit Hematology [place] [address] Arturo Cordero MD [facility] DR HEMATOLOGY [place] [address] Scheduled Procedures Name Priority Associated Diagnoses Date/Ti me EGD, UPPER GI ENDOSCOPY (WRVU 2.09) Irritable bowel syndrome with constipation 08/29/2024 1:00 PM EST COLONOSCOPY, DIAGNOSTIC (WRVU 3.26) Irritable bowel syndrome with constipation 08/29/2024 1:00 PM EST documented as of this encounter Visit Diagnoses Diagnosis Essential hypertension Unspecified essential hypertension Irritable bowel syndrome with constipation Irritable bowel syndrome documented in this encounter Care Teams Speech Language Pathologist Assistant Relationship Specialty Start Date End Date Rodney Padilla MD PCP - General 07/18/22 04/09/24 documented as of this encounter
--- OUTSIDE RECORDS SUMMARY | 2024-08-20 15:52 | XMS_ITS | Encounter Summary ---
Author Organization [facility] [place] [address] Care Team Providers Care Pathology Laboratory Technologist Name Role Phone Rodney Padilla MD Primary Care Provider Reason for Referral * Consultation (Routine) - Closed Specialty Diagnoses / Procedures Referred By Gonzalez kumari Referred To Contact Diagnoses Chronic pain of right knee Calli Mariscal MD [facility] [place] [address] Orthopaedics, Four [address] [place] [address] Referral ID Status Reason Start Date Expiration Date V isits Requested Visits Authorized [id number] Closed Consult, Test & Treat 02/22/2023 08/21/2023 1 1 Reason for Visit * Reason Comments Bilateral Knee Pain Rt is worse Referral To Ortho Encounter Details Date Type Department Care Team (Late st Contact Info) Description 02/22/2023 11:30 AM EDT Office Visit Family Medicine at [facility] [address] [place] [address] Calli Mariscal MD [facility] [place] [address] Chronic pain of right knee Social History [...] 02/22/2023 11:30 AM EDT FAMILY MEDICINE AT [facility] [address] [facility] [address] Subjective: CHART REVIEW: Patient ID: Alize Gramajo [...] List Diagnosis Code 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 Yes fluticasone propionate (Flonase) 50 mcg/actuation [place], Suspension 1 spray by Each Nare route [...] Yes Nebulizer Accessories Misc 1 each by [facility].(Non-Drug; Combo Route) route every 4 [...] 1:00 PM EST Hospital Encounter [place] [address] Roland Gooden MD [facility] [place] [address] 08/29/2024 1:00 PM EST - 08/29/2024 2:00 PM EST Surgery [place] [phone] Roland Gooden MD [facility] [place] [address] EGD, UPPER GI ENDOSCOPY (WRVU 2.09) 10/02/2024 1:00 PM EDT Office Visit Ophthalmology at [place] [phone] Juanpablo Hernandez MD [facility] [place] [address] 10/21/2024 9:30 AM EDT Office Visit Internal Medicine at [address] [phone] Daryn Garrett MD [facility] [place] [place] [address] 01/30/2025 1:30 PM EDT Laboratory Appointment Lab at [facility] Hematology Oncology [address] [place], [place] [phone] 01/30/2025 3:[address] Scan at [place] [phone] Arturo Cordero MD [facility] DR HEMATOLOGY [place] [address] 01/30/2025 4:15 PM EDT Office Visit Hematology and Oncology at [place] [phone] Arturo Cordero MD [facility] [place] [address] Scheduled Procedures Name Priority Associated Diagnoses Date/Ti [...] Diagnoses Diagnosis Chronic pain of right knee Irritable bowel syndrome with constipation Irritable bowel syndrome documented in this encounter Care Teams Pathology Laboratory Technologist Relationship Specialty Start Date End Date Rodney Padilla MD PCP - General 07/18/22 04/09/24 documented as of this encounter
--- OUTSIDE RECORDS SUMMARY | 2024-08-20 15:52 | XMS_ITS | Encounter Summary ---
Author Organization [facility] Address [facility] [place] [address] Care Team Providers Care Board Design Engineer Name Role Phone Rodney Padilla MD [...] 1:00 PM EST Hospital En[place] [address] Roland Gooden MD [facility] [place] [address] 08/29/2024 1:00 PM EST - 08/29/2024 2:00 PM EST [place] [phone] Roland Gooden MD [facility] [place] [address] EGD, UPPER GI ENDOSCOPY (WRVU 2.09) 10/02/2024 1:00 PM EDT Office [place] [phone] Juanpablo Hernandez MD [facility] [place] [address] 10/21/2024 9:30 AM EDT Office Visit Internal Medicine at [facility] [address] [place] [phone] Daryn Garrett MD [facility] DR LIL[place] [address] 01/30/2025 1:30 PM EDT Laboratory Appointment Lab at [facility] Hematology Oncology [address] [place], [place] [phone] 01/30/2025 3:[address] Scan at [place] [phone] Arturo Cordero MD [facility] [place] [address] 01/30/2025 4:15 PM EDT Office Visit Hematology and Oncology at [place] [phone] Arturo Cordero MD [facility] DR [place] [address] Scheduled Procedures Name Priority Associated Diagnoses Date/Ti me EGD, UPPER GI ENDOSCOPY (WRVU 2.09) Irritable bowel syndrome with constipation 08/29/2024 1:00 PM EST COLONOSCOPY, DIAGNOSTIC (WRVU 3.26) Irritable bowel syndrome with constipation 08/29/2024 1:00 PM EST documented as of this encounter Visit Diagnoses Not on filedocumented in this encounter Care Teams Board Design Engineer Relationship Specialty Start Date End Date Rodney Padilla MD PCP - General 07/18/22 04/09/24 documented as of this encounter
--- OUTSIDE RECORDS SUMMARY | 2024-08-20 15:52 | XMS_ITS | Encounter Summary ---
Author Organization [facility] [place] [address] Care Team Providers Care Sephora Product Consultant Name Role Phone Rodney Padilla MD Primary Care Provider [phone] Reason for Visit * Reason Onset Date Comments Prior Authorization 07/12/2023 Dexcom G7 Se nsor Encounter Details Date Type Department Care Team (Late st Contact Info) Description 07/12/2023 Telephone Family Medicine at [facility] [address] [place] [address] Aida Aguayo, SUPERVISOR CUSTOMER COMPLAINT SERVICE Prior Authorization (Dexcom G7 Sensor) Social History [...] Outcome: PA Not Needed Patient goes through [employer] for Blood Glucose Sensors and Receivers. * Telephone Encounter - Aida Aguayo CMA - 07/26/2023 9:28 AM EST Called insurance. Unable to speak with a branch service representative. Resubmitted PA through [facility] Anderson: [id number] * Telephone Encounter - Arlene Palomo CMA - 07/14/2023 10:53 AM EST Images from the original note were not included. PA resubmitted to the insurance with the complete member ID number. Anderson [id number] * Telephone Encounter - Aida Aguayo CMA - 07/12/2023 8:45 AM EST PA Submitted Submitted Date: Date Submitted: 07/12/2023 Medication Prior Authorization Patient: Alize Gramajo Patient : 1960 Insurance Company: [employer] Sent via: [facility] Anderson: [id number] Physician: Rodney Padilla MD Medication Requested: Blood-Glucose Sensor (Dexcom G7 Sensor) Device Frequency/Si Device by [facility]Non-Drug; Combo Route) route every 10 days. Disp: [...] 1:00 PM EST Hospital Encounter [place] [address] Roland Gooden MD [facility] [place] [address] 08/29/2024 1:00 PM EST - 08/29/2024 2:00 PM EST Surgery [place] [address] Roland Gooden MD [facility] [place] [address] EGD, UPPER GI ENDOSCOPY (WRVU 2.09) 10/02/2024 1:00 PM EDT Office Visit Ophthalmology at [place] [phone] Juanpablo Hernandez MD [facility] [place] [address] 10/21/2024 9:30 AM EDT Office Visit Internal Medicine at [address] [address] Daryn Garrett MD [facility] DR LILI [place] [address] 01/30/2025 1:30 PM EDT Laboratory Appointment Lab at [facility] Hematology Oncology [address] [place] [phone] 01/30/2025 3:[address] Scan at [place] [phone] Arturo Cordero MD [facility] [place] [address] 01/30/2025 4:15 PM EDT Office Visit Hematology [place] [address] Arturo Cordero MD [facility] [place]AT[place] [address] Scheduled Procedures Name Priority Associated Diagnoses Date/Ti me EGD, UPPER GI ENDOSCOPY (WRVU 2.09) Irritable bowel syndrome with constipation 08/29/2024 1:00 PM EST COLONOSCOPY, DIAGNOSTIC (WRVU 3.26) Irritable bowel syndrome with constipation 08/29/2024 1:00 PM EST documented as of this encounter Visit Diagnoses Not on filedocumented in this encounter Care Teams Sephora Product Consultant Relationship Specialty Start Date End Date Rodney Padilla MD PCP - General 07/18/22 04/09/24 documented as of this encounter
--- OUTSIDE RECORDS SUMMARY | 2024-08-20 15:52 | XMS_ITS | Encounter Summary ---
Author Organization [facility] [place] [address] Care Team Providers Care Automotive Glass Specialist Name Role Phone Rodney Padilla MD Primary Care Provider Reason for Visit * Reason Onset Date Comments Medication Refill 06/16/2023 Encounter Details Date Type Department Care Team (Late st Contact Info) Description 06/16/2023 Telephone Family Medicine at [facility] [address] [place] [address] Rodney Padilla MD [address] [place] [address] [place] [address] Medication Refill Social History Tobacco Use Types [...] Pharmacy Name & Location: [facility] [phone] Caller would like clinic to reach out to the Pharmacy: yes Patient declined scheduling an appointment: no Ask caller their first and last name and relationship to the patient: self Best time to call back: yes Ok to leave a message: yes Ok to send - message: yes Did you contact your pharmacy: yes Patient called stating the pharmacy does not have any extra refills for her. documented in this encounter Plan of Treatment Upcoming Encounters Date Type Department Care Team (Latest Contact Info) Description 08/29/2024 1:00 PM EST Hospital Encounter Gastroenterology at [place] [phone] Roland Gooden MD [facility] [place] [address] 08/29/2024 1:00 PM EST - 08/29/2024 2:00 PM EST Surgery [place] [phone] Roland Gooden MD [facility] [place] [address] EGD, UPPER GI ENDOSCOPY (WRVU 2.09) 10/02/2024 1:00 PM EDT Office [place] [phone] Juanpablo Hernandez MD [facility] [place] [address] 10/21/2024 9:30 AM EDT Office Visit Internal Medicine at [address] [place] [phone] Daryn Garrett MD [facility] DR LILI W[place] [address] 01/30/2025 1:30 PM EDT Laboratory Appointment Lab at [facility] [place] [address] [place] [phone] 01/30/2025 3:[address] [place] [phone] Arturo Cordero MD [facility] DR HEMAT[place] [address] 01/30/2025 4:15 PM EDT Office Visit Hematology [place] [phone] Arturo Cordero MD [facility] DR HEMATOLOG[place] [address] Scheduled Procedures Name Priority Associated Diagnoses Date/Ti me EGD, UPPER GI ENDOSCOPY (WRVU 2.09) Irritable bowel syndrome with constipation 08/29/2024 1:00 PM EST COLONOSCOPY, DIAGNOSTIC (WRVU 3.26) Irritable bowel syndrome with constipation 08/29/2024 1:00 PM EST documented as of this encounter Visit Diagnoses Not on filedocumented in this encounter Care Teams Automotive Glass Specialist Relationship Specialty Start Date End Date Rodney Padilla MD PCP - General 07/18/22 04/09/24 documented as of this encounter
--- OUTSIDE RECORDS SUMMARY | 2024-08-20 15:52 | XMS_ITS | Encounter Summary ---
Author Organization [facility] Address [facility] [place] [address] Care Team Providers Care Water And Fire Technician Name Role Phone Rodney Padilla MD Primary Care Provider Reason for Visit * Reason Onset Date Comments Medication Refill 03/21/2023 Encounter Details Date Type Department Care Team (Late st Contact Info) Description 03/21/2023 Refill Family Medicine at [facility] [address] [place] [address] Luis E Narayan MD [facility] DR LILI WALKER-[place] [address] Essential hypertension Social History Tobacco Use Types [...] 1:00 PM EST Hospital Encounter [place] [address] Roland Gooden MD [facility] [place] [address] 08/29/2024 1:00 PM EST - 08/29/2024 2:00 PM EST [place] [phone] Roland Gooden MD [facility] [place] [address] EGD, UPPER GI ENDOSCOPY (WRVU 2.09) 10/02/2024 1:00 PM EDT Office [place] [phone] Juanpablo Hernandez MD [facility] [place] [address] 10/21/2024 9:30 AM EDT Office Visit Internal Medicine at [facility] [address] [place] [phone] Daryn Garrett MD [facility] DR LILI WALKER - [place] [address] 01/30/2025 1:30 PM EDT Laboratory Appointment Lab at [facility] [place] On[place] [address] [place], [place] [phone] 01/30/2025 3:[address] [place] [phone] Arturo Cordero MD [facility] DR HEMATOLOGY [place] [address] 01/30/2025 4:15 PM EDT Office Visit Hematology [place] [phone] Arturo Cordero MD [facility] DR HEMATOLOGY [place] [address] Scheduled Procedures Name Priority Associated Diagnoses Date/Ti me EGD, UPPER GI ENDOSCOPY (WRVU 2.09) Irritable bowel syndrome with constipation 08/29/2024 1:00 PM EST COLONOSCOPY, DIAGNOSTIC (WRVU 3.26) Irritable bowel syndrome with constipation 08/29/2024 1:00 PM EST documented as of this encounter Visit Diagnoses Diagnosis Essential hypertension Unspecified essential hypertension Irritable bowel syndrome with constipation Irritable bowel syndrome documented in this encounter Care Teams Water And Fire Technician Relationship Specialty Start Date End Date Rodney Padilla MD PCP - General 07/18/22 04/09/24 documented as of this encounter
--- OUTSIDE RECORDS SUMMARY | 2024-08-20 15:52 | XMS_ITS | Encounter Summary ---
Author Organization [facility] Address [facility] [place] [place] [address] Care Team Providers Care Tangled Yarn Spool Straightener Name Role Phone Rodney Padilla MD [...] 1:00 PM EST Hospital En[place] [address] Roland Gooden MD [facility] [place] [address] 08/29/2024 1:00 PM EST - 08/29/2024 2:00 PM EST [place] [phone] Roland Gooden MD [facility] [place] [address] EGD, UPPER GI ENDOSCOPY (WRVU 2.09) 10/02/2024 1:00 PM EDT Office [place] [phone] Juanpablo Hernandez MD [facility] [address] 10/21/2024 9:30 AM EDT Office Visit Internal Medicine at [facility] [address] [place] [phone] Daryn Garrett MD [facility] DR LILI [place] [address] 01/30/2025 1:30 PM EDT Laboratory Appointment Lab at [facility] Hematology Oncology [address] [place], [place] [phone] 01/30/2025 3:[address] Scan at [place] [phone] Arturo Cordero MD [facility] [place] [address] 01/30/2025 4:15 PM EDT Office Visit Hematology and Oncology at [place] [phone] Arturo Crodero MD [facility] DR [place] [address] Scheduled Procedures Name Priority Associated Diagnoses Date/Ti me EGD, UPPER GI ENDOSCOPY (WRVU 2.09) Irritable bowel syndrome with constipation 08/29/2024 1:00 PM EST COLONOSCOPY, DIAGNOSTIC (WRVU 3.26) Irritable bowel syndrome with constipation 08/29/2024 1:00 PM EST documented as of this encounter Visit Diagnoses Not on filedocumented in this encounter Care Teams Tangled Yarn Spool Straightener Relationship Specialty Start Date End Date Rodney Padilla MD PCP - General 07/18/22 04/09/24 documented as of this encounter
--- OUTSIDE RECORDS SUMMARY | 2024-08-20 15:52 | XMS_ITS | Encounter Summary ---
Author Organization [facility] Address [facility] [place] [address] Care Team Providers Care Rn Angiography Name Role Phone Rodney Padilla MD Primary [...] 1:00 PM EST Hospital En[place] [address] Roland Gooden MD [facility] [place] [place] [address] 08/29/2024 1:00 PM EST - 08/29/2024 2:00 PM EST [place] [phone] Roland Gooden MD [facility] [place] [address] EGD, UPPER GI ENDOSCOPY (WRVU 2.09) 10/02/2024 1:00 PM EDT Office [place] [phone] Juanpablo Hernandez MD [facility] [place] [address] 10/21/2024 9:30 AM EDT Office Visit Internal Medicine at [facility] [address] [place] [phone] Daryn Garrett MD [facility] DR LILI [place] [address] 01/30/2025 1:30 PM EDT Laboratory Appointment Lab at [facility] [place] Hematology Oncology [address] [place], [place] [phone] 01/30/2025 3:[address] Scan at [place] [phone] Arturo Cordero MD [facility] [place] [address] 01/30/2025 4:15 PM EDT Office Visit Hematology and Oncology at [place] [phone] Arturo Cordero MD [facility] DR [place] [address] Scheduled Procedures Name Priority Associated Diagnoses Date/Ti me EGD, UPPER GI ENDOSCOPY (WRVU 2.09) Irritable bowel syndrome with constipation 08/29/2024 1:00 PM EST COLONOSCOPY, DIAGNOSTIC (WRVU 3.26) Irritable bowel syndrome with constipation 08/29/2024 1:00 PM EST documented as of this encounter Visit Diagnoses Not on filedocumented in this encounter Care Teams Rn Angiography Relationship Specialty Start Date End Date Rodney Padilla MD PCP - General 07/18/22 04/09/24 documented as of this encounter
--- OUTSIDE RECORDS SUMMARY | 2024-08-20 15:52 | XMS_ITS | Encounter Summary ---
Author Organization [facility] Address One [facility] [place] [address] Care Team Providers Care Short Range Air Defense Artillery Name Role Phone Rodney Padilla MD Primary Care Provider Reason for Visit * Reason Onset Date Comments Diabetes 05/29/2023 Encounter Details Date Type Department Care Team (Late st Contact Info) Description 05/29/2023 9:45 AM EST Telephone Family Medicine at [facility] [address] [place] [phone] Julia Low, [facility] Diabetes Social History Tobacco Use Types Packs/Day [...] withthis caller. Also is following with a dye penetrant testing technician but admits her BGs are not currently [...] RPH Visit Type: Telephone Call & [facility] message Subjective: Patient ID: Alize Gramajo is a 62 y.o. female. Phone call completed today for medication follow up. Caller: patient Reason for call: reivew repeated A1c result, reconnect for DM followup LVM and sent [facility] message requesting pt return call to reschedule [...] 1:00 PM EST Hospital Encounter [place] [address] Roland Gooden MD [facility] [place] [address] 08/29/2024 1:00 PM EST - 08/29/2024 2:00 PM EST Surgery [place] [address] Roland Gooden MD [facility] [place] [address] EGD, UPPER GI ENDOSCOPY (WRVU 2.09) 10/02/2024 1:00 PM EDT Office [place] [address] Juanpablo Hernandez MD [facility] [place] [address] 10/21/2024 9:30 AM EDT Office Visit Internal Medicine at [place] [address] [place] [phone] Daryn Garrett MD [facility] DR [place] [address] 01/30/2025 1:30 PM EDT Laboratory Appointment Lab at [facility] [place] [place] Hematology Oncology [address] [place] [phone] 01/30/2025 3:[address] Scan at [place] [phone] Arturo Cordero MD [facility] [place] [address] 01/30/2025 4:15 PM EDT Office Visit Hematology [place] [address] Arturo Cordero MD [facility] [place] [address] Scheduled Procedures Name Priority Associated Diagnoses Date/Ti me EGD, UPPER GI ENDOSCOPY (WRVU 2.09) Irritable bowel syndrome with constipation 08/29/2024 1:00 PM EST COLONOSCOPY, DIAGNOSTIC (WRVU 3.26) Irritable bowel syndrome with constipation 08/29/2024 1:00 PM EST documented as of this encounter Visit Diagnoses Not on filedocumented in this encounter Care Teams Short Range Air Defense Artillery Relationship Specialty Start Date End Date Rodney Padilla MD PCP - General 07/18/22 04/09/24 documented as of this encounter
--- OUTSIDE RECORDS SUMMARY | 2024-08-20 15:52 | XMS_ITS | Encounter Summary ---
Author Organization [facility] Address [facility] [place] [address] Care Team Providers Care Stone Rougher Name Role Phone Rodney Padilla MD Primary Care Provider Reason for Visit * Reason Onset Date Comments Medication Refill 04/02/2023 Encounter Details Date Type Department Care Team (Late st Contact Info) Description 04/02/2023 Refill Family Medicine at [facility] [address] [place] [address] Tamera Khan APR[address] [facility] DR LIL[place] [address] Social History Tobacco Use Types Packs/Day Years [...] 1:00 PM EST Hospital Encounter [place] [phone] [facility] [place] [address] 08/29/2024 1:00 PM EST - 08/29/2024 2:00 PM EST [place] [address] [facility] [place] [address] EGD, UPPER GI ENDOSCOPY (WRVU 2.09) 10/02/2024 1:00 PM EDT Office [place] [phone] [facility] [place] [address] 10/21/2024 9:30 AM EDT Office Visit Internal Medicine at [address] [phone] Daryn Garrett MD [facility] DR [place] [address] 01/30/2025 1:30 PM EDT Laboratory Appointment Lab at [facility] Hematology Oncology [address] [place] [phone] 01/30/2025 3:[address] [place] [address] [facility] [place] [address] 01/30/2025 4:15 PM EDT Office Visit Hematology [place] [address] [facility] [place] [address] Scheduled Procedures Name Priority Associated Diagnoses Date/Ti me EGD, UPPER GI ENDOSCOPY (WRVU 2.09) Irritable bowel syndrome with constipation 08/29/2024 1:00 PM EST COLONOSCOPY, DIAGNOSTIC (WRVU 3.26) Irritable bowel syndrome with constipation 08/29/2024 1:00 PM EST documented as of this encounter Visit Diagnoses Not on filedocumented in this encounter Care Teams Stone Rougher Relationship Specialty Start Date End Date Rodney Padilla MD PCP - General 07/18/22 04/09/24 documented as of this encounter
--- OUTSIDE RECORDS SUMMARY | 2024-08-20 15:52 | XMS_ITS | Encounter Summary ---
Author Organization [facility] [place] [address] Care Team Providers Care Supervisor Pre Wave Name Role Phone Rodney Padilla MD Primary Care Provider Reason for Visit * Reason Comments Procedure Knee injection for R t knee Encounter Details Date Type Department Care Team (Late st Contact Info) Description 02/23/2023 3:00 PM EDT Procedure visit Family Medicine at [facility] [address] [place] [phone] Shyla Barbosa MD Chronic pain of right [...] 1:00 PM EST Hospital Encounter [place] [phone] Roland Gooden MD [facility] [place] [address] 08/29/2024 1:00 PM EST - 08/29/2024 2:00 PM EST [place] [phone] Roland Gooden MD [facility] [place] [address] EGD, UPPER GI ENDOSCOPY (WRVU 2.09) 10/02/2024 1:00 PM EDT Office [place] [phone] Juanpablo Hernandez MD [facility] [place] [address] 10/21/2024 9:30 AM EDT Office Visit Internal Medicine at [place] [address] [place] [address] Daryn Garrett MD [facility] DR LILI [place] [address] 01/30/2025 1:30 PM EDT Laboratory Appointment Lab at [facility] H[place] On[place] [address] [place], [place] [phone] 01/30/2025 3:[address] [place] [phone] Arturo Cordero MD [facility] DR HEM[place] [address] 01/30/2025 4:15 PM EDT Office Visit Hematology [place] [address] Arturo Cordero MD [facility] DR HEMATOLOG[place] [address] Scheduled Procedures Name Priority Associated Diagnoses Date/Ti [...] polyneuropathy, with long-term current use of insulin Irritable bowel syndrome with constipation Irritable bowel syndrome documented in this encounter Care Teams Supervisor Pre Wave Relationship Specialty Start Date End Date Rodney Padilla MD PCP - General 07/18/22 04/09/24 documented as of this encounter
--- OUTSIDE RECORDS SUMMARY | 2024-08-20 15:52 | XMS_ITS | Encounter Summary ---
[place] [address] Care Team Providers Care Hostel Parent Name Role Phone Rodney Padilla MD Primary Care Provider Encounter Details Date Type Department Care Team (Late st Contact Info) Description 06/23/2023 Telephone [place] [phone] Andressa Hernandez Social History Tobacco Use Types [...] 06/23/2023 4:59 PM EST Copied from CRM #[id number]. Topic: Specialty Dept CRMs - Generic Call >> Jun 20, 2023 3:00 PM Cheri Quinones wrote: Specialist: Rodney Padilla Relationship (if other than patient-full name): Maze Reason for Call: Scheduled PFT 08/18 at 1 PM documented in this encounter Plan of Treatment Upcoming Encounters Date Type Department Care Team (Latest Contact Info) Description 08/29/2024 1:00 PM EST Hospital Encounter [place] [address] Rloand Gooden MD [facility] [place] [address] 08/29/2024 1:00 PM EST - 08/29/2024 2:00 PM EST [place] [address] Roland Gooden MD [facility] [place] [address] EGD, UPPER GI ENDOSCOPY (WRVU 2.09) 10/02/2024 1:00 PM EDT Office Visit Ophthalmology at [place] [phone] Juanpablo Hernandez MD [facility] [place] [address] 10/21/2024 9:30 AM EDT Office Visit Internal Medicine at [place] [address] [place] [phone] Daryn Garrett MD [facility] DR LILI [place] [address] 01/30/2025 1:30 PM EDT Laboratory Appointment Lab at [facility] Hematology Oncology [address] [place] [phone] 01/30/2025 3:[address] Scan at [place] [phone] Arturo Cordero MD [facility] [place] [address] 01/30/2025 4:15 PM EDT Office Visit Hematology [place] [phone] Arturo Cordero MD [facility] [place]OLOGY [place] [address] Scheduled Procedures Name Priority Associated Diagnoses Date/Ti me EGD, UPPER GI ENDOSCOPY (WRVU 2.09) Irritable bowel syndrome with constipation 08/29/2024 1:00 PM EST COLONOSCOPY, DIAGNOSTIC (WRVU 3.26) Irritable bowel syndrome with constipation 08/29/2024 1:00 PM EST documented as of this encounter Visit Diagnoses Not on filedocumented in this encounter Care Teams Hostel Parent Relationship Specialty Start Date End Date Rodney Padilla MD PCP - General 07/18/22 04/09/24 documented as of this encounter
--- OUTSIDE RECORDS SUMMARY | 2024-08-20 15:52 | XMS_ITS | Encounter Summary ---
Author Organization [facility] Address [facility] [place] [address] Care Team Providers Care Alarm Mechanism Adjuster Name Role Phone Daryn Garrett MD Primary Care Provider [phone] Reason for Visit * Reason Comments Medication Refill Encounter Details Date Type Department Care Team (Late st Contact Info) Description 04/02/2023 Refill Family Medicine at [facility] [address] [place] [address] Luis E Narayan MD [facility] LILI [place] [address] Social History Tobacco Use Types Packs/Day Years [...] 1:00 PM EST Hospital Encounter Gastroenterology at [place] [phone] Roland Gooden MD [facility] [place] [address] 08/29/2024 1:00 PM EST - 08/29/2024 2:00 PM EST Surgery [place] [phone] Roland Gooden MD [facility] [place] [address] EGD, UPPER GI ENDOSCOPY (WRVU 2.09) 10/02/2024 1:00 PM EDT Office Visit Ophthalmology at [place] [phone] Juanpablo Hernandez MD [facility] [place] [address] 10/21/2024 9:30 AM EDT Office Visit Internal Medicine at [facility] [address] [place] [address] Daryn Garrett MD [facility] [place] [address] 01/30/2025 1:30 PM EDT Laboratory Appointment Lab at [facility] Hematology Oncology [address] [place] [phone] 01/30/2025 3:[address] [place] [phone] Arturo Cordero MD [facility] [place] [address] 01/30/2025 4:15 PM EDT Office Visit Hematology [place] [phone] Arturo Cordero MD [facility] [place] [address] Scheduled Procedures Name Priority Associated Diagnoses Date/Ti me EGD, UPPER GI ENDOSCOPY (WRVU 2.09) Irritable bowel syndrome with constipation 08/29/2024 1:00 PM EST COLONOSCOPY, DIAGNOSTIC (WRVU 3.26) Irritable bowel syndrome with constipation 08/29/2024 1:00 PM EST documented as of this encounter Visit Diagnoses Not on filedocumented in this encounter Care Teams Alarm Mechanism Adjuster Relationship Specialty Start Date End Date Daryn Garrett MD [facility] [place] [address] PCP - General 04/10/24 documented as of this encounter
--- OUTSIDE RECORDS SUMMARY | 2024-08-20 15:53 | XMS_ITS | Encounter Summary ---
Author Organization [facility] Address [facility] [place] [address] Care Team Providers Care Vending Supervisor Name Role Phone Rodney Padilla MD [...] 1:00 PM EST Hospital En[place] [address] Roland Gooden MD [facility] [place] [address] 08/29/2024 1:00 PM EST - 08/29/2024 2:00 PM EST [place] [phone] Roland Gooden MD [facility] [place] [address] EGD, UPPER GI ENDOSCOPY (WRVU 2.09) 10/02/2024 1:00 PM EDT Office [place] [phone] Juanpablo Hernandez MD [facility] [place] [address] 10/21/2024 9:30 AM EDT Office Visit Internal Medicine at [facility] [address] [place] [phone] Daryn Garrett MD [facility] DR LILI [place] [address] 01/30/2025 1:30 PM EDT Laboratory Appointment Lab at [facility] Hematology Oncology [address] [place], [place] [phone] 01/30/2025 3:[address] Scan at [place] [phone] Arturo Cordero MD [facility] [place] [address] 01/30/2025 4:15 PM EDT Office Visit Hematology and Oncology at [place] [phone] Arturo Cordero MD [facility] [address] [place] [address] Scheduled Procedures Name Priority Associated Diagnoses Date/Ti me EGD, UPPER GI ENDOSCOPY (WRVU 2.09) Irritable bowel syndrome with constipation 08/29/2024 1:00 PM EST COLONOSCOPY, DIAGNOSTIC (WRVU 3.26) Irritable bowel syndrome with constipation 08/29/2024 1:00 PM EST documented as of this encounter Visit Diagnoses Not on filedocumented in this encounter Care Teams Vending Supervisor Relationship Specialty Start Date End Date Rodney Padilal MD PCP - General 07/18/22 04/09/24 documented as of this encounter
--- OUTSIDE RECORDS SUMMARY | 2024-08-20 15:53 | XMS_ITS | Encounter Summary ---
Author Organization [facility] [place] [address] Care Team Providers Care Home Hospice Aide Name Role Phone Rodney Padilla MD Primary Care Provider [phone] Encounter Details Date Type Department Care Team (Latest Contact Info) Description 11/30/2022 2:20 PM EDT - 11/30/2022 11:59 PM EDT Hospital Encounter Mammography/[place] [address] Rodney Padilla MD [address] [place] [address] [place] [address] Screening mammogram for breast cancer Discharge [...] 09/26/2022 09/19/2023 fluticasone propionate (Flonase) 50 mcg/actuation [place], Suspension 1 spray by Each Nare route [...] 1 each 12/10/2021 02/04/2023 FreeStyle Sanjana 2 Mathias MiscIndications:diabe escobar mellitus 1 each by Other [...] 1:00 PM EST Hospital Encounter [place] [address] Roland Gooden MD [facility] [place] [address] 08/29/2024 1:00 PM EST - 08/29/2024 2:00 PM EST [place] [address] Roland Gooden MD [facility] [place] [address] EGD, UPPER GI ENDOSCOPY (WRVU 2.09) 10/02/2024 1:00 PM EDT Office [place] [address] Juanpablo Hernandez MD [facility] [place] [address] 10/21/2024 9:30 AM EDT Office Visit Internal Medicine at [place] [address] [place] [address] Daryn Garrett MD [facility] DR LILI [place] [address] 01/30/2025 1:30 PM EDT Laboratory Appointment Lab at [facility] Hematology Oncology [address] [place] [phone] 01/30/2025 3:[address] [place] [phone] Arturo Cordero MD [facility] DR HEMATOLOG[place] [address] 01/30/2025 4:15 PM EDT Office Visit Hematology [place] [address] Arturo Cordero MD [facility] DR H[place]AT[place] [address] Scheduled Procedures Name Priority Associated Diagnoses Date/Ti [...] Diagnoses Diagnosis Screening mammogram for breast cancer Irritable bowel syndrome with constipation Irritable bowel syndrome documented in this encounter Care Teams Home Hospice Aide Relationship Specialty Start Date End Date Rodney Padilla MD PCP - General 07/18/22 04/09/24 documented as of this encounter
--- OUTSIDE RECORDS SUMMARY | 2024-08-20 15:53 | XMS_ITS | Encounter Summary ---
Author Organization Replaced By [facility] [place] [place] [address] Care Team Providers Care Regional Cra Name Role Phone Rodney Padilla MD Primary Care Provider Encounter Details Date Type Department Care Team (Late st Contact Info) Description 02/20/2023 Telephone Family Medicine at [address] [place] [phone] Rani Menard, RN Social History Tobacco Use [...] - 02/20/2023 11:06 AM EDT Copied from [facility] #[id number]. Topic: Triage - Triage >> Feb 20, 2023 10:40 AM Alba Richard wrote: Symptom: Knee Pain (spoke with AMCM) PCP: RODNEY PADILLA Additional Comments: AMCM advised a message be placed as patient is requesting an appointment on 02/22 for a cortizone shot for her severe knee pain. [facility] advised patient to be seen within 24 hours but patient declined. documented in this encounter Plan of Treatment Upcoming Encounters Date Type Department Care Team (Latest Contact Info) Description 08/29/2024 1:00 PM EST Hospital Encounter [place] [address] Roland Gooden MD [facility] [place] [address] 08/29/2024 1:00 PM EST - 08/29/2024 2:00 PM EST Surgery [place] [phone] Roland Gooden MD [facility] [place] [address] EGD, UPPER GI ENDOSCOPY (WRVU 2.09) 10/02/2024 1:00 PM EDT Office Visit [place] [phone] Juanpablo Hernandez MD [facility] [place] [place] [address] 10/21/2024 9:30 AM EDT Office Visit Internal Medicine at [address] [phone] Daryn Garrett MD [facility] DR LILI [place] [address] 01/30/2025 1:30 PM EDT Laboratory Appointment Lab at [facility] Hematology Oncology [address] [place] [phone] 01/30/2025 3:[address] [place] [address] Arturo Cordero MD [facility] [place] [address] 01/30/2025 4:15 PM EDT Office Visit Hematology and Oncology at [facility] [place] [address] Arturo Cordero MD [facility] [place] [address] Scheduled Procedures Name Priority Associated Diagnoses Date/Ti me EGD, UPPER GI ENDOSCOPY (WRVU 2.09) Irritable bowel syndrome with constipation 08/29/2024 1:00 PM EST COLONOSCOPY, DIAGNOSTIC (WRVU 3.26) Irritable bowel syndrome with constipation 08/29/2024 1:00 PM EST documented as of this encounter Visit Diagnoses Not on filedocumented in this encounter Care Teams Regional Cra Relationship Specialty Start Date End Date Rodney Padilla MD PCP - General 07/18/22 04/09/24 documented as of this encounter
--- OUTSIDE RECORDS SUMMARY | 2024-08-20 15:53 | XMS_ITS | Encounter Summary ---
Author Organization [facility] Address [facility] [place] [address] Care Team Providers Care 1St Grade Teacher Name Role Phone Rodnye Padilla MD Primary Care Provider Reason for Visit * Reason Comments Medication Refill Encounter Details Date Type Department Care Team (Late st Contact Info) Description 12/15/2022 Refill [address] Medicine at [facility] [address] [place] [address] Luis E Narayan MD [facility] DR LILI W[place] [address] Mixed hyperlipidemia Social History Tobacco Use Types [...] 1:00 PM EST Hospital Encounter Gastroenterology at [place] [phone] Roland Gooden MD [facility] [place] [address] 08/29/2024 1:00 PM EST - 08/29/2024 2:00 PM EST Surgery [place] [address] Roland Gooden MD [facility] [place] [address] EGD, UPPER GI ENDOSCOPY (WRVU 2.09) 10/02/2024 1:00 PM EDT Office [place] [phone] Juanpablo Hernandez MD [facility] [place] [address] 10/21/2024 9:30 AM EDT Office Visit Internal Medicine at [address] [phone] Daryn Garrett MD [facility] DR LILI [place] [address] 01/30/2025 1:30 PM EDT Laboratory Appointment Lab at [facility] Hematology Oncology [address] [place] [phone] 01/30/2025 3:[address] [place] [address] Artuor Cordero MD [facility] HEMATOLOGY [place] [address] 01/30/2025 4:15 PM EDT Office Visit Hematology [place] [address] Arturo Cordero MD [facility] DR [place] [address] Scheduled Procedures Name Priority Associated Diagnoses Date/Ti me EGD, UPPER GI ENDOSCOPY (WRVU 2.09) Irritable bowel syndrome with constipation 08/29/2024 1:00 PM EST COLONOSCOPY, DIAGNOSTIC (WRVU 3.26) Irritable bowel syndrome with constipation 08/29/2024 1:00 PM EST documented as of this encounter Visit Diagnoses Diagnosis Mixed hyperlipidemia Irritable bowel syndrome with constipation Irritable bowel syndrome documented in this encounter Care Teams 1St Grade Teacher Relationship Specialty Start Date End Date Rodney Padilla MD PCP - General 07/18/22 04/09/24 documented as of this encounter
--- OUTSIDE RECORDS SUMMARY | 2024-08-20 15:53 | XMS_ITS | Encounter Summary ---
Author Organization [facility] [place] [address] Care Team Providers Care Forestry Support Specialist Name Role Phone Rodney Padilla MD Primary Care Provider [phone] Encounter Details Date Type Department Care Team (Late st Contact Info) Description 01/09/2023 Orders Only Hematology [place] [address] Arturo Cordero MD [facility] [address] [place] [address] Malignant melanoma of conjunctiva, left; Lung nodule [...] EST Hospital Encounter Gastroenterology at [place] [phone] Roland Gooden MD [facility] [place] [address] 08/29/2024 1:00 PM EST - 08/29/2024 2:00 PM EST [place] [phone] Roland Gooden MD [facility] [place] [address] EGD, UPPER GI ENDOSCOPY (WRVU 2.09) 10/02/2024 1:00 PM EDT Office Visit Ophthalmology at [place] [phone] Juanpablo Hernandez MD [facility] [place] [address] 10/21/2024 9:30 AM EDT Office Visit Internal Medicine at [facility] [address] [place] [address] Daryn Garrett MD [facility] DR L[place]I [place] [address] 01/30/2025 1:30 PM EDT Laboratory Appointment Lab at [facility] Hematology Oncology [address] [place] [phone] 01/30/2025 3:[address] [place] [phone] Arturo Cordero MD [facility] [place] [address] 01/30/2025 4:15 PM EDT Office Visit Hematology [place] [phone] Arturo Cordero MD [facility] [place] [address] Scheduled Procedures Name Priority Associated Diagnoses Date/Ti me EGD, UPPER GI ENDOSCOPY (WRVU 2.09) Irritable bowel syndrome with constipation 08/29/2024 1:00 PM EST COLONOSCOPY, DIAGNOSTIC (WRVU 3.26) Irritable bowel syndrome with constipation 08/29/2024 1:00 PM EST documented as of this encounter Results * Lactate Dehydrogenase (08/03/2023 7:53 AM EST) Lactate Dehydrogenase 218 110 - 220 unit/L [facility] Blood 08/03/2023 7:53 AM EST 08/03/2023 9:46 AM EST Narrative Resulting Agency Comment Spec In Lab Arturo Cordero MD CHEMISTRY ORDERABLES [facility] [address] [facility] [place] [address] * (ABNORMAL) Comprehensive metabolic panel (non-fasting) (08/03/2023 7:53 AM EST) Glucose 254(H) 65 - 199 mg/dL [facility] Comment:Diabetes: >=200 mg/d L plus symptoms Blood Urea Nitrogen 17 8 - 18 mg/dL [facility] Creatinine 0.82 0.70 - 1.20 mg/dL [facility] Sodium 140 135 - 145 mmol/L [facility] Potassium 4.9 3.5 - 5.0 mmol/L [facility] Comment: Please note: ??Patients with WBC >100,000 may have falsely elevated Potassium levels. ??For accurate Potassium quantification in these patients send serum separator tube (gold top) for subsequent determinations. ??Contact the Clinical Chemistry Laboratory if there are any questions. Chloride 103 98 - 107 mmol/L [facility] Carbon Dioxide 27 22 - 31 mmol/L [facility] Anion Gap 10 5 - 15 mmol/L [facility] Calcium 9.5 8.5 - 10.5 mg/dL [facility] Protein, Total 6.9 6.1 - 8.0 g/dL [facility] Albumin 4.3 3.2 - 5.2 g/dL [facility] Aspartate Aminotransferase 19 0 - 30 unit/L [facility] Alanine Aminotransferase 26 0 - 30 unit/L [facility] Alkaline Phosphatase 101 35 - 105 unit/L [facility] Bilirubin, Total 0.3 0.2 - 1.3 mg/dL [facility] Est Glomerular Filtration Rate 80 >=60 mL/min/1. 73 m?? [facility] Comment: This patient's estimated GFR was [...] Cordero MD CHEMISTRY ORDERABLES Performing Organization Address City/State/[facility] Co de Phone Number [facility] [place] [address] documented in this encounter Visit Diagnoses Diagnosis Malignant melanoma of conjunctiva, left Lung nodule Solitary pulmonary nodule Irritable bowel syndrome with constipation Irritable bowel syndrome documented in this encounter Care Teams Forestry Support Specialist Relationship Specialty Start Date End Date Rodney Padilla MD PCP - General 07/18/22 04/09/24 documented as of this encounter
--- OUTSIDE RECORDS SUMMARY | 2024-08-20 15:53 | XMS_ITS | Encounter Summary ---
Author Organization [facility] [place] [address] Care Team Providers Care Field Talent Qualification Specialist Name Role Phone Rodney Padilla MD Primary Care Provider [phone] Reason for Visit * Reason Onset Date Comments Medication Problem 11/08/2022 Tresiba Encounter Details Date Type Department Care Team ([facility] Contact Info) Description 11/08/2022 Telephone Family Medicine at [facility] [address] [place] [address] Rodney Padilla MD [address] [place] [address] [place] [address] Medication Problem (Tresiba /) Social History [...] 1:00 PM EST Hospital En[place] [phone] Roland Gooden MD [facility] [place] [address] 08/29/2024 1:00 PM EST - 08/29/2024 2:00 PM EST [place] [phone] Roland Gooden MD [facility] [place] [address] EGD, UPPER GI ENDOSCOPY (WRVU 2.09) 10/02/2024 1:00 PM EDT Office [place] [phone] Juanpablo Hernandez MD [facility] [place] [address] 10/21/2024 9:30 AM EDT Office Visit Internal Medicine at [place] [address] [place] [phone] Daryn Garrett MD [facility] DR LILI [place] [address] 01/30/2025 1:30 PM EDT Laboratory Appointment Lab at [facility] Hematology Oncology [address] [place] [phone] 01/30/2025 3:[address] [place] [phone] Arturo Cordero MD [facility] DR [place] [address] 01/30/2025 4:15 PM EDT Office Visit Hematology [place] [phone] Arturo Cordero MD [facility] [place] [address] Scheduled Procedures Name Priority Associated Diagnoses Date/Ti me EGD, UPPER GI ENDOSCOPY (WRVU 2.09) Irritable bowel syndrome with constipation 08/29/2024 1:00 PM EST COLONOSCOPY, DIAGNOSTIC (WRVU 3.26) Irritable bowel syndrome with constipation 08/29/2024 1:00 PM EST documented as of this encounter Visit Diagnoses Not on filedocumented in this encounter Care Teams Field Talent Qualification Specialist Relationship Specialty Start Date End Date Rodney Padilla MD PCP - General 07/18/22 04/09/24 documented as of this encounter
--- OUTSIDE RECORDS SUMMARY | 2024-08-20 15:53 | XMS_ITS | Encounter Summary ---
Author Organization [facility] Address [facility] [place] [address] Care Team Providers Care Pct Name Role Phone Rodney Padilla MD Primary [...] 1:00 PM EST Hospital En[place] [address] Roland Gooden MD [facility] [place] [address] 08/29/2024 1:00 PM EST - 08/29/2024 2:00 PM EST [place] [phone] Roland Gooden MD [facility] [place] [address] EGD, UPPER GI ENDOSCOPY (WRVU 2.09) 10/02/2024 1:00 PM EDT Office [place] [phone] Juanpablo Hernandez MD [facility] [place] [address] 10/21/2024 9:30 AM EDT Office Visit Internal Medicine at [facility] [address] [place] [phone] Daryn Garrett MD [facility] DR LILI [place] [address] 01/30/2025 1:30 PM EDT Laboratory Appointment Lab at [facility] [place]ematology Oncology [address] [place], [place] [phone] 01/30/2025 3:[address] Scan at [place] [phone] Arturo Cordero MD [facility] [place] [address] 01/30/2025 4:15 PM EDT Office Visit Hematology and Oncology at [place] [phone] Arturo Cordero MD [facility] [place] [address] Scheduled Procedures Name Priority Associated Diagnoses Date/Ti me EGD, UPPER GI ENDOSCOPY (WRVU 2.09) Irritable bowel syndrome with constipation 08/29/2024 1:00 PM EST COLONOSCOPY, DIAGNOSTIC (WRVU 3.26) Irritable bowel syndrome with constipation 08/29/2024 1:00 PM EST documented as of this encounter Visit Diagnoses Not on filedocumented in this encounter Care Teams Pct Relationship Specialty Start Date End Date Rodney Padilla MD PCP - General 07/18/22 04/09/24 documented as of this encounter
--- OUTSIDE RECORDS SUMMARY | 2024-08-20 15:53 | XMS_ITS | Encounter Summary ---
Author Organization [facility] Address [facility] [place] [address] Care Team Providers Care Director Specialty Name Role Phone Rodney Padilla MD Primary Care Provider Reason for Visit * Reason Onset Date Comments Diabetes 11/09/2022 Encounter Details Date Type Department Care Team (Late st Contact Info) Description 11/09/2022 1:30 PM EDT Telephone Family Medicine at [facility] [address] [place] [phone] Julia Low, [facility] Diabetes Social History Tobacco Use Types [...] 181 126 163 Daily Avg 173 eA1c [id number] Average BG Readings before insulin: 175 Assessment [...] 1:00 PM EST Hospital En[place] [address] Roland Gooden MD [facility] [place] [address] 08/29/2024 1:00 PM EST - 08/29/2024 2:00 PM EST [place] [phone] Roland Gooden MD [facility] [place] [address] EGD, UPPER GI ENDOSCOPY (WRVU 2.09) 10/02/2024 1:00 PM EDT Office Visit Ophthalmology at [place] [phone] Juanpablo Hernandez MD [facility] [address] 10/21/2024 9:30 AM EDT Office Visit Internal Medicine at [address] [phone] Daryn Garrett MD [facility] [place] [address] 01/30/2025 1:30 PM EDT Laboratory Appointment Lab at [facility] Hematology Oncology [address] [place], [place] [phone] 01/30/2025 3:[address] Scan at [place] [phone] Arturo Cordero MD [facility] DR HEMATOLOGY [place] [address] 01/30/2025 4:15 PM EDT Office Visit Hematology and Oncology at [place] [phone] Arturo Cordero MD [facility] H[place]ATOLOG[place] [address] Scheduled Procedures Name Priority Associated Diagnoses Date/Ti [...] syndrome documented in this encounter Care Teams Director Specialty Relationship Specialty Start Date End Date Rodney Padilla MD PCP - General 07/18/22 04/09/24 documented as of this encounter
--- OUTSIDE RECORDS SUMMARY | 2024-08-20 15:53 | XMS_ITS | Encounter Summary ---
Author Organization [facility] Address One [facility] [place] [address] Care Team Providers Care Small Wind Energy Installer Name Role Phone Rodney Padilla MD Primary Care Provider Reason for Visit * Reason Comments Medication Management Encounter Details Date Type Department Care Team (Late st Contact Info) Description 12/01/2022 12:45 PM EDT TH Visit (TeleHealth) Family Medicine at [facility] [address] [place] [phone] Julia Low, [facility] Medication management Social History Tobacco Use [...] any of the following conditions: Yes [x] IA/Stroke/CAD [] Retinopathy [] CHF [x] Neuropathy [] [...] 182 137 160 Daily Avg 153 eA1c [id number] Prior Averages: 08/26/21 09/09/21 09/24/21 11/14/21 Daily Avg 157 168 131 138 175 eA1c 8.892645 8.46 7.20 7.44 8.7 Acute complications of [...] 5 ??? fluticasone propionate (Flonase) 50 mcg/actuation [place], Suspension 1 spray by Each Nare route [...] 1 each 11 ??? FreeStyle Sanjana 2 [place] Misc 1 each by Other route daily. [...] 1:00 PM EST Hospital En[place] [address] Roland Gooden MD [facility] [place] [address] 08/29/2024 1:00 PM EST - 08/29/2024 2:00 PM EST [place] [phone] Roland Gooden MD [facility] [place] [address] EGD, UPPER GI ENDOSCOPY (WRVU 2.09) 10/02/2024 1:00 PM EDT Office [place] [address] Juanpablo Hernandez MD [facility] [place] [address] 10/21/2024 9:30 AM EDT Office Visit Internal Medicine at [facility] [address] [place] [phone] Daryn Garrett MD [facility] DR LILI WALKER - [place] [address] 01/30/2025 1:30 PM EDT Laboratory Appointment Lab at [facility] [place] On[place] [address] [place], [place] [phone] 01/30/2025 3:[address] Scan at [place] [phone] Arturo Cordero MD [facility] DR HEMATOLOGY [place] [address] 01/30/2025 4:15 PM EDT Office Visit Hematology and Oncology at [place] [phone] Arturo Cordero MD [facility] DR HEMATOLOGY [place] [address] Scheduled Procedures Name Priority Associated Diagnoses Date/Ti me EGD, UPPER GI ENDOSCOPY (WRVU 2.09) Irritable bowel syndrome with constipation 08/29/2024 1:00 PM EST COLONOSCOPY, DIAGNOSTIC (WRVU 3.26) Irritable bowel syndrome with constipation 08/29/2024 1:00 PM EST documented as of this encounter Visit Diagnoses Diagnosis Medication management Encounter for long-term (current) use of other medications Irritable bowel syndrome with constipation Irritable bowel syndrome documented in this encounter Care Teams Small Wind Energy Installer Relationship Specialty Start Date End Date Rodney Padilla MD PCP - General 07/18/22 04/09/24 documented as of this encounter
--- OUTSIDE RECORDS SUMMARY | 2024-08-20 15:53 | XMS_ITS | Encounter Summary ---
Author Organization [facility] Address One [facility] [place] [address] Care Team Providers Care Hydraulic Mechanic Name Role Phone Rodney Padilla MD Primary Care Provider [phone] Reason for Visit * Reason Comments Diabetes Encounter Details Date Type Department Care Team (Late st Contact Info) Description 01/05/2023 9:00 AM EDT TH Visit (TeleHealth) Family Medicine at [facility] [address] [place] [phone] Julia Low, [facility] Type 2 diabetes mellitus without long-term current [...] * Julia Low [facility] - 01/05/2023 9:00 AM EDT Clinical Pharmacist Consultation; Julia Low RPH Visit Type: Telehealth phone followup Diabetes Mellitus (DM) Medication Management Subjective Subjective: Patient ID: Alize Gramjao is a 62 y.o. female She is [...] 164 191 159 Daily Avg 176 eA1c 8.067588 Prior Averages: 08/26/21 09/09/21 09/24/21 11/14/21 11/03/22 12/01/22 Daily Avg 157 168 131 138 175 153 eA1c 8.66164 8.46 7.20 7.44 8.7 7.95 Acute complications [...] tablet 5 fluticasone propionate (Flonase) 50 mcg/actuation [place], Suspension 1 spray by Each Nare route [...] 1 Nebulizer Accessories Misc 1 each by [facility].(Non-Drug; Combo Route) route [...] spacer 1 each 11 FreeStyle Sanjana 2 [place] Misc 1 each by Other route daily. [...] 1:00 PM EST Hospital En[place] [phone] Roland Gooden MD [facility] [place] [address] 08/29/2024 1:00 PM EST - 08/29/2024 2:00 PM EST Surgery Gastroenterology at [place] [phone] Roland Gooden MD [facility] [place] [address] EGD, UPPER GI ENDOSCOPY (WRVU 2.09) 10/02/2024 1:00 PM EDT Office [place] [phone] Juanpablo Hernandez MD [facility] [place] [address] 10/21/2024 9:30 AM EDT Office Visit Internal Medicine at [facility] [address] [place] [address] Daryn Garrett MD [facility] DR LILI [place]ER [place] [address] 01/30/2025 1:30 PM EDT Laboratory Appointment Lab at [facility] Hematology Oncology [address] [place] [phone] 01/30/2025 3:[address] [place] [phone] Arturo Cordero MD [facility] [place] [address] 01/30/2025 4:15 PM EDT Office Visit Hematology [place] [address] Arturo Cordero MD [facility] [place] [address] Scheduled Procedures Name Priority Associated Diagnoses Date/Ti [...] syndrome documented in this encounter Care Teams Hydraulic Mechanic Relationship Specialty Start Date End Date Rodney Padilla MD PCP - General 07/18/22 04/09/24 documented as of this encounter
--- OUTSIDE RECORDS SUMMARY | 2024-08-20 15:53 | XMS_ITS | Encounter Summary ---
Author Organization [facility] [place] [address] Care Team Providers Care Air Conditioning Specialist Name Role Phone Daryn Garrett MD Primary Care Provider Reason for Visit * Reason Onset Date Comments Medication Refill 11/07/2022 Encounter Details Date Type Department Care Team (Late st Contact Info) Description 11/07/2022 Refill Family Medicine at [facility] [address] [place] [address] Rodney Padilla MD [address] [place] [address] [facility] [place] [address] Type 2 diabetes mellitus without long-term current [...] 1:00 PM EST Hospital Encounter [place] [phone] Roland Gooden MD [facility] [place] [address] 08/29/2024 1:00 PM EST - 08/29/2024 2:00 PM EST Surgery [place] [phone] Roland Gooden MD [facility] [place] [address] EGD, UPPER GI ENDOSCOPY (WRVU 2.09) 10/02/2024 1:00 PM EDT Office [place] [phone] Juanpablo Hernandez MD [facility] [place] [address] 10/21/2024 9:30 AM EDT Office Visit Internal Medicine at [place] [address] [place] [address] Daryn Garrett MD [facility] [place] [address] 01/30/2025 1:30 PM EDT Laboratory Appointment Lab at [facility] Hematology Oncology [address] [place] [phone] 01/30/2025 3:[address] [place] [phone] Arturo Cordero MD [facility] [place] [address] 01/30/2025 4:15 PM EDT Office Visit Hematology [place] [phone] Arturo Cordero MD [facility] [place] [address] Scheduled Procedures Name Priority Associated Diagnoses Date/Ti [...] documented in this encounter Care Teams Air Conditioning Specialist Relationship Specialty Start Date End Date Daryn Garrett MD [facility] [place] [address] PCP - General 04/10/24 documented as of this encounter
--- OUTSIDE RECORDS SUMMARY | 2024-08-20 15:53 | XMS_ITS | Encounter Summary ---
Author Organization [facility] [address] Care Team Providers Care Commodity Management Specialist Name Role Phone Rodney Padilla MD Primary Care Provider Encounter Details Date Type Department Care Team (Latest Contact Info) Description 12/29/2022 9:45 AM EDT - 12/29/2022 11:59 PM EDT Hospital Encounter [place] [address] Malignant melanoma of conjunctiva, left Discharge Disposition: [...] 09/26/2022 09/19/2023 fluticasone propionate (Flonase) 50 mcg/actuation [place], Suspension 1 spray by Each Nare [...] 1 each 12/10/2021 02/04/2023 FreeStyle Sanjana 2 [place] MiscIndications:diabe escobar mellitus 1 each by Other [...] 1:00 PM EST Hospital En[place] [phone] Roland Gooden MD [facility] [place] [address] 08/29/2024 1:00 PM EST - 08/29/2024 2:00 PM EST [place] [phone] Roland Gooden MD [facility] [place] [address] EGD, UPPER GI ENDOSCOPY (WRVU 2.09) 10/02/2024 1:00 PM EDT [place] [phone] Juanpablo Hernandez MD [facility] [place] [address] 10/21/2024 9:30 AM EDT Office Visit Internal Medicine at [facility] [address] [place] [phone] Daryn Garrett MD [facility] DR LILI [place] [address] 01/30/2025 1:30 PM EDT Laboratory Appointment Lab at [facility] Hematology Oncology [address] [place] [phone] 01/30/2025 3:[address] [place] [phone] Arturo Cordero MD [facility] [address] [place] [address] 01/30/2025 4:15 PM EDT Office Visit [place] [address] Arturo Cordero MD [facility] [place] [address] Scheduled Procedures Name Priority Associated Diagnoses Date/Ti [...] 10:00 AM EDT) Neutrophil % 66.5 % [facility] Neutrophil Absolute 4.82 1.70 - 6.10 x10(3)/[facility] LAB[facility] Lymph % 24.4 % [facility] Lymphocytes Abs 1.8 0.9 - 3.2 x10(3)/[facility] Monocyte % 6.4 % [facility] Monocyte Abs 0.5 0.3 - 0.9 x10(3)/[facility] Eos % 1.7 % [facility] Eosinophils Abs 0.1 0.0 - 0.4 x10(3)/[facility] Basophil % 0.7 % [facility] Baso Absolute 0.0 0.0 - 0.1 x10(3)/[facility] LAB[facility] Immature Gran % 0.30 % [facility] Comment: Immature granulocytes(IG's)percentage and absolute count will include metamyelocytes, myelocytes, and promyelocytes. Blood smears from CBCs yielding IG's will be scanned manually for concordance. If this scan disagrees with the automated IG or if promyelocytes are noted, a manual differential will be performed. Immature Gran Absolute 0.02 0.00 - 0.04 x10(3)/[facility] Blood 12/29/2022 10:0 0 AM EDT 12/29/2022 10:13 AM EDT Narrative Resulting Agency Comment Spec In Lab Mer Trejo MD HEMATOLOGY ORDER [facility] [place] [address] * (ABNORMAL) Hemogram (12/29/2022 10:00 AM EDT) White Blood Cell 7.2 4.0 - 9.5 x10(3)/mc L [facility] Red Blood Cell 4.67 4.00 - 5.21 x10(6)/mc L [facility] Hemoglobin 13.1 11.7 - 15.5 g/dL [facility] Hematocrit 39.8 35.7 - 45.8 % [facility] Mean Cell Volume 85.2 82.6 - 94.[address] [facility] Mean Cell Hemoglobin 28.1 27.1 - 32.[address] [facility] Mean Cell Hemoglobin Concentration 32.9 31.7 - 35.0 g/dL [facility] Platelet 362(H) 145 - 357 x10(3)/mc L [facility] RDW Standard Deviation 45.0 37.0 - 46.[address] [facility] RDW coefficient of variation 14.6(H) 11.5 - 14.1 % [facility] Mean Platelet Volume 9.3 7.6 - 12.9 fL [facility] NRBC% auto 0.0 % [facility] ITAL LABORATORY NRBC Absolute 0.000 0.000 - 0.000 x10(3)/ L [facility] Blood 12/29/2022 10:0 0 AM EDT 12/29/2022 10:13 AM EDT Narrative Resulting Agency Comment Spec In Lab Mer Trejo MD HEMATOLOGY ORDER SHY[facility] [place] [address] * (ABNORMAL) Comprehensive metabolic panel (non-fasting) (12/29/2022 10:00 AM EDT) Glucose 259(H) 65 - 199 mg/dL [facility] Comment:Diabetes: >=200 mg/d L plus symptoms Blood Urea Nitrogen 17 8 - 18 mg/dL [facility] Creatinine 0.84 0.70 - 1.20 mg/dL [facility] Sodium 140 135 - 145 mmol/L [facility] Potassium 4.5 3.5 - 5.0 mmol/L [facility] Comment: Please note: ??Patients with WBC >100,000 may have falsely elevated Potassium levels. ??For accurate Potassium quantification in these patients send serum separator tube (gold top) for subsequent determinations. ??Contact the Clinical Chemistry Laboratory if there are any questions. Chloride 104 98 - 107 mmol/L [facility] Carbon Dioxide 23 22 - 31 mmol/L [facility] Anion Gap 13 5 - 15 mmol/L [facility] Calcium 9.5 8.5 - 10.5 mg/dL [facility] Protein, Total 6.9 6.1 - 8.0 g/dL [facility] Albumin 4.1 3.2 - 5.2 g/dL [facility] Aspartate Aminotransferase 19 0 - 30 unit/L [facility] Alanine Aminotransferase 24 0 - 30 unit/L [facility] Alkaline Phosphatase 103 35 - 105 unit/L [facility] Bilirubin, Total 0.3 0.2 - 1.3 mg/dL [facility] Est Glomerular Filtration Rate 78 >=60 mL/min/1. 73 m?? [facility] Comment: This patient's estimated GFR [...] In Lab Arturo Cordero MD CHEMISTRY ORDERABLES [facility] [place] [address] * Lactate Dehydrogenase (12/29/2022 10:00 AM EDT) Lactate Dehydrogenase 175 110 - 220 unit/L [facility] Blood 12/29/2022 10:0 0 AM EDT 12/29/2022 10:13 AM EDT Narrative Resulting Agency Comment Spec In Lab Arturo Cordero MD CHEMISTRY ORDERABLES [facility] [place] [address] documented in this encounter Visit Diagnoses Diagnosis Malignant melanoma of conjunctiva, left Irritable bowel syndrome with constipation Irritable bowel syndrome documented in this encounter Care Teams Commodity Management Specialist Relationship Specialty Start Date End Date Rodney Padilla MD PCP - General 07/18/22 04/09/24 documented as of this encounter
--- OUTSIDE RECORDS SUMMARY | 2024-08-20 15:53 | XMS_ITS | Encounter Summary ---
Author Organization [facility] [place] [address] Care Team Providers Care Cnc Mill Set Up Operator Name Role Phone Rodney Padilla MD Primary Care Provider Reason for Referral * Diagnostic Test (Routine) - Closed Specialty Diagnoses / Procedures Referred By Contac t Referred To Contact Radiology Diagnoses Malignant melanoma of conjunctiva, left Procedures CT Neck Soft Tissue w Contrast (Generic) Arturo Cordero MD [facility] [place] [address] [facility] [place] [address] Referral ID Status Reason Start Date Expiration Date V isits Requested Visits Authorized [id number] Closed Specialty Service Requested 12/29/2022 06/30/2024 1 1 * Diagnostic Test (Routine) - Closed Specialty Diagnoses / Procedures Referred By Contac t Referred To Contact Radiology Diagnoses Malignant melanoma of conjunctiva, left Renal cell cancer, left Procedures CT Chest Abdomen Pelvis w Contrast (Generic) Arturo Cordero MD [facility] [place] [address] [facility] [place] [address] Referral ID Status Reason Start Date Expiration Date V isits Requested Visits Authorized [id number] Closed Specialty Service Requested 12/29/2022 06/30/2024 1 1 Reason for Visit * Diagnostic Test (Routine) - Closed Specialty Diagnoses / Procedures Referred By Contac t Referred To Contact Radiology Diagnoses Malignant melanoma of conjunctiva, left Renal cell cancer, left Procedures CT Chest Abdomen Pelvis w Contrast (Generic) Arturo Cordero MD [facility] [place] [address] [facility] [place] [address] Referral ID Status Reason Start Date Expiration Date V isits Requested Visits Authorized [id number] Closed Specialty Service Requested 12/29/2022 06/30/2024 1 1 Encounter Details Date Type Department Care Team (Latest Contact Info) Description 01/06/2023 12:18 PM EDT - 01/06/2023 11:59 PM EDT Hospital [place] [phone] Arturo Cordero MD [facility] [place] [address] Malignant melanoma of conjunctiva, left; [...] 09/26/2022 09/19/2023 fluticasone propionate (Flonase) 50 mcg/actuation [place], Suspension 1 spray by Each Nare [...] 1 each 12/10/2021 02/04/2023 FreeStyle Sanjana 2 [place] MiscIndications:diabe escobar mellitus 1 each by Other [...] 1:00 PM EST Hospital Encounter [place] [address] Roland Gooden MD [facility] [place] [address] 08/29/2024 1:00 PM EST - 08/29/2024 2:00 PM EST Surgery [place] [phone] Roland Gooden MD [facility] [place] [address] EGD, UPPER GI ENDOSCOPY (WRVU 2.09) 10/02/2024 1:00 PM EDT Office [place] [address] Juanpablo Hernandez MD [facility] [place] [address] 10/21/2024 9:30 AM EDT Office Visit Internal Medicine at [facility] [address] [place] [phone] Daryn Garrett MD [facility] DR L[place]I [place] [address] 01/30/2025 1:30 PM EDT Laboratory Appointment Lab at [facility] Hematology Oncology [address] [place] [phone] 01/30/2025 3:[address] [place] [phone] Arturo Cordero MD [facility] [place] [address] 01/30/2025 4:15 PM EDT Office Visit Hematology [place] [phone] Arturo Cordero MD [facility] [place] [address] Scheduled Procedures Name Priority Associated Diagnoses Date/Ti [...] questions please contact the health nursing care partner that requested your imaging first. ? Narrative [...] after the intravenous administration of 110 mL [id number]. COMPARISON: CT neck 06/23/2022 FINDINGS: No large [...] have questions please contactthe health nursing care partner that requested your imaging first. Arturo Cordero [...] questions please contact the health nursing care partner that requested your imaging first. ? Narrative [...] have questions please contactthe health nursing care partner that requested your imaging first. Arturo Cordero [...] documented in this encounter Care Teams Cnc Mill Set Up Operator Relationship Specialty Start Date End Date Rodney Padilla MD PCP - General 07/18/22 04/09/24 documented as of this encounter
--- OUTSIDE RECORDS SUMMARY | 2024-08-20 15:53 | XMS_ITS | Encounter Summary ---
Author Organization [facility] Address [facility] [place] [address] Care Team Providers Care Agricultural Service Technician Name Role Phone Rodney Padilla MD [...] 1:00 PM EST Hospital Encounter [place] [address] Roland Gooden MD [facility] [place] [address] 08/29/2024 1:00 PM EST - 08/29/2024 2:00 PM EST Surgery [place] [phone] Roland Gooden MD [facility] [place] [address] EGD, UPPER GI ENDOSCOPY (WRVU 2.09) 10/02/2024 1:00 PM EDT Office [place] [phone] Juanpablo Hernandez MD [facility] [place] [address] 10/21/2024 9:30 AM EDT Office Visit Internal Medicine at [facility] [address] [place] [phone] Daryn Garrett MD [facility] DR [address]IL[address] [place] [address] 01/30/2025 1:30 PM EDT Laboratory Appointment Lab [place] [facility] [place] [address] [place], [place] [phone] 01/30/2025 3:[address] Scan at [place] [phone] Arturo Cordero MD [facility] [place] [address] 01/30/2025 4:15 PM EDT Office Visit Hematology and Oncology at [place] [phone] Arturo Cordero MD [facility] [place] [address] Scheduled Procedures Name Priority Associated Diagnoses Date/Ti me EGD, UPPER GI ENDOSCOPY (WRVU 2.09) Irritable bowel syndrome with constipation 08/29/2024 1:00 PM EST COLONOSCOPY, DIAGNOSTIC (WRVU 3.26) Irritable bowel syndrome with constipation 08/29/2024 1:00 PM EST documented as of this encounter Visit Diagnoses Not on filedocumented in this encounter Care Teams Agricultural Service Technician Relationship Specialty Start Date End Date Rodney Padilla MD PCP - General 07/18/22 04/09/24 documented as of this encounter
--- OUTSIDE RECORDS SUMMARY | 2024-08-20 15:53 | XMS_ITS | Encounter Summary ---
Author Organization [facility] Address [facility] [place] [address] Care Team Providers Care Installation Supervisor Name Role Phone Rodney Padilla MD [...] 1:00 PM EST Hospital Encounter [place] [address] Roland Gooden MD [facility] [place] [address] 08/29/2024 1:00 PM EST - 08/29/2024 2:00 PM EST Surgery [place] [phone] Roland Gooden MD [facility] [place] [address] EGD, UPPER GI ENDOSCOPY (WRVU 2.09) 10/02/2024 1:00 PM EDT Office [place] [phone] Juanpablo Hernandez MD [facility] [place] [address] 10/21/2024 9:30 AM EDT Office Visit Internal Medicine at [facility] [address] [place] [phone] Daryn Garrett MD [facility] DR L[place]I [place] [address] 01/30/2025 1:30 PM EDT Laboratory Appointment Lab at [facility] Hematology Oncology [address] [place], [place] [phone] 01/30/2025 3:[address] Scan at [place] [phone] Arturo Cordero MD [facility] [place] [address] 01/30/2025 4:15 PM EDT Office Visit Hematology and Oncology at [place] [phone] Arturo Cordero MD [facility] [address] [place] [address] Scheduled Procedures Name Priority Associated Diagnoses Date/Ti me EGD, UPPER GI ENDOSCOPY (WRVU 2.09) Irritable bowel syndrome with constipation 08/29/2024 1:00 PM EST COLONOSCOPY, DIAGNOSTIC (WRVU 3.26) Irritable bowel syndrome with constipation 08/29/2024 1:00 PM EST documented as of this encounter Visit Diagnoses Not on filedocumented in this encounter Care Teams Installation Supervisor Relationship Specialty Start Date End Date Rodney Padilla MD PCP - General 07/18/22 04/09/24 documented as of this encounter
--- OUTSIDE RECORDS SUMMARY | 2024-08-20 15:53 | XMS_ITS | Encounter Summary ---
Author Organization [facility] [place] [address] Care Team Providers Care Group Fitness Manager Name Role Phone Rodney Padilla MD Primary Care Provider Reason for Visit * Reason Onset Date Comments Medication Refill 02/04/2023 Encounter Details Date Type Department Care Team (Late st Contact Info) Description 02/04/2023 Refill Family Medicine at [facility] [address] [place] [address] Bereket Latham PA [facility] [place] [address] COPD Social History Tobacco Use Types Packs/Day [...] 1:00 PM EST Hospital Encounter [place] [phone] Roland Gooden MD [facility] [place] [address] 08/29/2024 1:00 PM EST - 08/29/2024 2:00 PM EST [place] [phone] Roland Gooden MD [facility] [place] [place] [address] EGD, UPPER GI ENDOSCOPY (WRVU 2.09) 10/02/2024 1:00 PM EDT Office [place] [phone] Juanpablo Hernandez MD [facility] [place] [place] [address] 10/21/2024 9:30 AM EDT Office Visit Internal Medicine at [address] [phone] Daryn Garrett MD [facility] DR LILI [place] [address] 01/30/2025 1:30 PM EDT Laboratory Appointment Lab at [facility] Hematology Oncology [address] [place] [phone] 01/30/2025 3:[address] [place] [phone] Arturo Cordero MD [facility] [place] [address] 01/30/2025 4:15 PM EDT Office Visit Hematology [place] [address] Arturo Cordero MD [facility] [place] [address] Scheduled Procedures Name Priority Associated Diagnoses Date/Ti me EGD, UPPER GI ENDOSCOPY (WRVU 2.09) Irritable bowel syndrome with constipation 08/29/2024 1:00 PM EST COLONOSCOPY, DIAGNOSTIC (WRVU 3.26) Irritable bowel syndrome with constipation 08/29/2024 1:00 PM EST documented as of this encounter Visit Diagnoses Diagnosis COPD Simple chronic bronchitis Irritable bowel syndrome with constipation Irritable bowel syndrome documented in this encounter Care Teams Group Fitness Manager Relationship Specialty Start Date End Date Rodney Padilla MD PCP - General 07/18/22 04/09/24 documented as of this encounter
--- OUTSIDE RECORDS SUMMARY | 2024-08-20 15:53 | XMS_ITS | Encounter Summary ---
Author Organization [facility] [place] [address] Care Team Providers Care Veneer Sawyer Name Role Phone Rodney Padilla MD Primary Care Provider Encounter Details Date Type Department Care Team (Late st Contact Info) Description 11/30/2022 4:20 PM EDT Office Visit Dermatology at [facility] [address] [place] [phone] Alonso Young MD Seborrheic keratoses; Multiple nevi; Lentigines; Aranda angioma; [...] full skin exam. []Note routed to secretary specialist [x]Recall placed in scheduling system []Appointment scheduled at checkout Scribe attestation: SONY Lal has performed the documentation for this encounter in the presence of and acting as a scribe for Alonso Young MD. I performed the above scribed service and agree with the accuracy of the documentation in this encounter. Reviewed and signed by: Alonso Young MD Dermatology [facility] Patient seen and evaluated with staff supercalender operator helper: Ren Mitchell MD Dermatology [facility] * Ren Mitchell MD - 11/30/2022 [...] (Latest Contact Info) Description 08/29/2024 1:00 PM [facility] Hospital Encounter [place] [address] Roland Gooden MD [facility] [place] [address] 08/29/2024 1:00 PM EST - 08/29/2024 2:00 PM EST Surgery Gastroenterology at [address] Roland Gooden MD [facility] [place] [address] EGD, UPPER GI ENDOSCOPY (WRVU 2.09) 10/02/2024 1:00 PM EDT Office Visit Ophthalmology at [place] [phone] Juanpablo Hernandez MD [facility] [address] 10/21/2024 9:30 AM EDT Office Visit Internal Medicine at [address] [phone] Daryn Garrett MD [facility] DR LILI WALKER - [place] [address] 01/30/2025 1:30 PM EDT Laboratory Appointment Lab at [facility] Hematology Oncology [address] [place], [place] [phone] 01/30/2025 3:[address] Scan at [place] [phone] Arturo Cordero MD [facility] HEMATOLOGY [place] [address] 01/30/2025 4:15 PM EDT Office Visit Hematology [place] [phone] Arturo Cordero MD [facility] [place] [address] Scheduled Procedures Name Priority Associated Diagnoses Date/Ti [...] other specified malignant neoplasm Seborrheic keratoses, inflamed Irritable bowel syndrome with constipation Irritable bowel syndrome documented in this encounter Care Teams Veneer Sawyer Relationship Specialty Start Date End Date Rodney Padilla MD PCP - General 07/18/22 04/09/24 documented as of this encounter
--- OUTSIDE RECORDS SUMMARY | 2024-08-20 15:53 | XMS_ITS | Encounter Summary ---
Author Organization [facility] Address [facility] [place] [address] Care Team Providers Care Director Of Institutional Sales Name Role Phone Rodney Padilla MD Primary Care Provider Reason for Visit * Reason Comments Diabetes Hyperlipidemia Encounter Details Date Type Department Care Team (Late st Contact Info) Description 01/23/2023 9:30 AM EDT TH Visit (TeleHealth) Family Medicine at [facility] [address] [place] [phone] Julia Low, [facility] Type 2 [...] Progress Notes * Julia Low RPH - 01/23/2023 9:30 AM EDT [...] any of the following conditions: Yes [x] NC/Stroke/CAD [] Retinopathy [] CHF [x] Neuropathy [] [...] 195 170 168 Daily Avg 168 eA1c 8.30394 Prior Averages: 08/26/21 09/09/21 09/24/21 11/14/21 11/03/22 12/01/2227/23 Daily Avg 157 168 131 138 175 153 176 eA1c 8.85712 8.46 7.20 7.44 8.7 7.95 8.75 Acute [...] tablet 5 fluticasone propionate (Flonase) 50 mcg/actuation [place], Suspension 1 spray by Each Nare route [...] spacer 1 each 11 FreeStyle Sanjana 2 [place] Misc 1 each by Other route daily. [...] 1:00 PM EST Hospital Encounter [place] [address] Roland Gooden MD [facility] [place] [address] 08/29/2024 1:00 PM EST - 08/29/2024 2:00 PM EST Surgery [place] [phone] Roland Gooden MD [facility] [place] [place] [address] EGD, UPPER GI ENDOSCOPY (WRVU 2.09) 10/02/2024 1:00 PM EDT Office Visit Ophthalmology at [place] [phone] Juanpablo Hernandez MD [facility] [place] [address] 10/21/2024 9:30 AM EDT Office Visit Internal Medicine at [address] [phone] Daryn Garrett MD [facility] [place] [address] 01/30/2025 1:30 PM EDT Laboratory Appointment Lab at [facility] Hematology Oncology [address] [place] [phone] 01/30/2025 3:[address] Scan at [place] [phone] Arturo Cordero MD [facility] HEMATOLOGY [place] [address] 01/30/2025 4:15 PM EDT Office Visit Hematology [place] [phone] Arturo Cordero MD [facility] HEMATOLOGY [place] [address] Scheduled Procedures Name Priority Associated Diagnoses Date/Ti [...] in this encounter Care Teams Director Of Institutional Sales Relationship Specialty Start Date End Date Rodney Padilla MD PCP - General 07/18/22 04/09/24 documented as of this encounter
--- OUTSIDE RECORDS SUMMARY | 2024-08-20 15:53 | XMS_ITS | Encounter Summary ---
Author Organization [facility] [place] [address] Care Team Providers Care Mass Spectrometry Manager Name Role Phone Rodney Padilla MD Primary Care Provider Reason for Referral * Diagnostic Test (Routine) - Closed Specialty Diagnoses / Procedures Referred By Contac t Referred To Contact Radiology Diagnoses Malignant melanoma of conjunctiva, left Procedures CT Neck Soft Tissue w Contrast (Generic) Arturo Cordero MD [facility] DR [place] [address] [facility] [place] [address] Referral ID Status Reason Start Date Expiration Date V isits Requested Visits Authorized [id number] Closed Specialty Service Requested 12/29/2022 06/30/2024 1 1 * Diagnostic Test (Routine) - Closed Specialty Diagnoses / Procedures Referred By Contac t Referred To Contact Radiology Diagnoses Malignant melanoma of conjunctiva, left Renal cell cancer, left Procedures CT Chest Abdomen Pelvis w Contrast (Generic) Arturo Cordero MD [facility] DR [place] [address] [facility] [place] [address] Referral ID Status Reason Start Date Expiration Date V isits Requested Visits Authorized [id number] Closed Specialty Service Requested 12/29/2022 06/30/2024 1 1 * Diagnostic Test (Routine) - Closed Specialty Diagnoses / Procedures Referred By Contac t Referred To Contact Radiology Diagnoses Malignant melanoma of conjunctiva, left Procedures CT Neck Soft Tissue w Contrast (Generic) Arturo Cordero MD [facility] DR [place] [address] [facility] [place] [address] Referral ID Status Reason Start Date Expiration Date V isits Requested Visits Authorized [id number] Closed Specialty Service Requested 12/29/2022 06/30/2024 1 1 * Diagnostic Test (Routine) - Closed Specialty Diagnoses / Procedures Referred By Contac t Referred To Contact Radiology Diagnoses Malignant melanoma of conjunctiva, left Renal cell cancer, left Procedures CT Chest Abdomen Pelvis w Contrast (Generic) Arturo Cordero MD [facility] DR [place] [address] [facility] [place] [address] Referral ID Status Reason Start Date Expiration Date V isits Requested Visits Authorized [id number] Closed Specialty Service Requested 12/29/2022 06/30/2024 1 1 Reason for Visit * Reason Comments Follow-up Encounter Details Date Type Department Care Team (Late st Contact Info) Description 12/29/2022 12:45 PM EDT Office Visit Hematology [place] [phone] Arturo Cordero MD [facility] DR [place] [address] Malignant melanoma of conjunctiva, left [...] the original note were not included. [facility] NOTE REFERING PHYSICIAN: Dr. Juanpablo Hernandez [...] management - fall 2018: saw a new fitter machinist and was referred to Dr. 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 Medina - 03/31/2020: saw her fitter machinist Dr. 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 [...] 1:00 PM EST Hospital Encounter Gastroenterology at [place] [phone] Roland Gooden MD [facility] [place] [address] 08/29/2024 1:00 PM EST - 08/29/2024 2:00 PM EST Surgery [place] [phone] Roland Gooden MD [facility] [place] [address] EGD, UPPER GI ENDOSCOPY (WRVU 2.09) 10/02/2024 1:00 PM EDT Office [place] [phone] Juanpablo Hernandez MD [facility] [place] [address] 10/21/2024 9:30 AM EDT Office Visit Internal Medicine at [address] [phone] Daryn Garrett MD [facility] DR LILI [place] [address] 01/30/2025 1:30 PM EDT Laboratory Appointment Lab at [place] Hematology Oncology [address] [place] [phone] 01/30/2025 3:[address] [place] [phone] Arturo Cordero MD [facility] [place] [address] 01/30/2025 4:15 PM EDT Office Visit Hematology [place] [address] Arturo Cordero MD [facility] DR [place] [address] Scheduled Procedures Name Priority Associated Diagnoses Date/Ti [...] The orbits are not included within the [id number]. No masses along the visualized upper aerodigestive [...] The orbits are not included within the utldd-um-[id number]. No masses alongthe visualized upper aerodigestive tract. [...] interviewer that requested your imaging first. ? Electronically signed by: Zain Izaguirre MD, [facility] ([phone]), at 08/03/2023 4:55 PM Narrative 08/03/2023 4:55 [...] Cordero MD IM CT ORDERABLES * CT Neck Soft [...] after the intravenous administration of 110 mL [id number]. COMPARISON: CT neck 06/23/2022 FINDINGS: No large [...] interviewer that requested your imaging first. ? Electronically signed by: Leo Camilo MD, [facility] ([phone]), at 01/06/2023 4:13 PM Narrative 01/06/2023 4:13 [...] syndrome documented in this encounter Care Teams Mass Spectrometry Manager Relationship Specialty Start Date End Date Rodney Padilla MD PCP - General 07/18/22 04/09/24 documented as of this encounter
--- OUTSIDE RECORDS SUMMARY | 2024-08-20 15:53 | XMS_ITS | Encounter Summary ---
Author Organization [facility] [address] Care Team Providers Care Dairy Store Manager Name Role Phone Rodney Padilla MD Primary Care Provider Reason for Visit * Reason Comments Diabetes Encounter Details Date Type Department Care Team (Late st Contact Info) Description 11/03/2022 12:45 PM EDT TH Visit (TeleHealth) Family Medicine at [facility] [address] [place] [phone] Julia Low, [facility] Type 2 [...] this encounter Progress Notes * Julia Low [facility] - 11/03/2022 12:45 PM EDT [...] 206 245 138 Daily Avg 175 eA1c 8.170026 Prior Averages: 08/26/21 09/09/21 09/24/21 11/14/21 Daily Avg 157 168 131 138 eA1c 8.110780 8.46 7.20 7.44 Acute complications of diabetes: [...] 5 ??? fluticasone propionate (Flonase) 50 mcg/actuation [place], Suspension 1 spray by Each Nare route [...] 1 each 11 ??? FreeStyle Sanjana 2 [place] Misc 1 each by Other route daily. [...] Cholesterol: Lipid Panel The ASCVD Risk score ([place] DK, et al., 2019) failed to calculate [...] 1:00 PM EST Hospital Encounter [place] [phone] Roland Gooden MD [facility] [place] [address] 08/29/2024 1:00 PM EST - 08/29/2024 2:00 PM EST Surgery [place] [phone] Roland Gooden MD [facility] [place] [address] EGD, UPPER GI ENDOSCOPY (WRVU 2.09) 10/02/2024 1:00 PM EDT Office [place] [phone] Juanpablo Hernandez MD [facility] [place] [address] 10/21/2024 9:30 AM EDT Office Visit Internal Medicine at [address] [phone] Daryn Garrett MD [facility] DR LILI WALKER [place] [address] 01/30/2025 1:30 PM EDT Laboratory Appointment Lab at [facility] Hematology Oncology [address] [place] [phone] 01/30/2025 3:[address] [place] [address] Arturo Cordero MD [facility] DR HEMATOLOGY [place] [address] 01/30/2025 4:15 PM EDT Office Visit Hematology [place] [address] Arturo Cordero MD [facility] DR HEMATOLOGY [place] [address] Scheduled Procedures Name Priority Associated Diagnoses Date/Ti [...] syndrome documented in this encounter Care Teams Dairy Store Manager Relationship Specialty Start Date End Date Rodney Padilla MD PCP - General 07/18/22 04/09/24 documented as of this encounter
--- OUTSIDE RECORDS SUMMARY | 2024-08-20 15:53 | XMS_ITS | Encounter Summary ---
Author Organization [facility] Address [facility] [place] [address] Care Team Providers Care Chemical Handler Name Role Phone Rodney Padilla MD Primary Care Provider [phone] Encounter Details Date Type Department Care Team [...] 1:00 PM EST Hospital Encounter [place] [address] Roland Gooden MD [facility] [place] [address] 08/29/2024 1:00 PM EST - 08/29/2024 2:00 PM EST Surgery [place] [phone] Roland Gooden MD [facility] [place] [address] EGD, UPPER GI ENDOSCOPY (WRVU 2.09) 10/02/2024 1:00 PM EDT Office Visit [place] [phone] Juanpablo Hernandez MD [facility] [place] [address] 10/21/2024 9:30 AM EDT Office Visit Internal Medicine at [facility] [address] [place] [phone] Daryn Garrett MD [facility] DR LILI [place]ER [place] [address] 01/30/2025 1:30 PM EDT Laboratory Appointment Lab at [facility] Hematology Oncology [address] [place], [place] [phone] 01/30/2025 3:[address] Scan at [place] [phone] Arturo Cordero MD [facility] HEMATOLOGY [place] [address] 01/30/2025 4:15 PM EDT Office Visit Hematology and Oncology at [place] [phone] Arturo Cordero MD [facility] DR HEMATOLOGY [place] [address] Scheduled Procedures Name Priority Associated Diagnoses Date/Ti me EGD, UPPER GI ENDOSCOPY (WRVU 2.09) Irritable bowel syndrome with constipation 08/29/2024 1:00 PM EST COLONOSCOPY, DIAGNOSTIC (WRVU 3.26) Irritable bowel syndrome with constipation 08/29/2024 1:00 PM EST documented as of this encounter Visit Diagnoses Not on filedocumented in this encounter Care Teams Chemical Handler Relationship Specialty Start Date End Date Rodney Padilla MD PCP - General 07/18/22 04/09/24 documented as of this encounter
--- OUTSIDE RECORDS SUMMARY | 2024-08-20 15:53 | XMS_ITS | Encounter Summary ---
Author Organization [facility] [place] [address] Care Team Providers Care Discharge Specialist Name Role Phone Rodney Padilla MD Primary Care Provider [phone] Encounter Details Date Type Department Care Team (Late st Contact Info) Description 02/20/2023 [place] [phone] Lakshmi Castellanos, RN Social History Tobacco Use [...] Work Phone: Work Phone: Gender: Female Time: [place] [address] Address: [place] [address] Address: PCP: Unknown, -[address] - Relationship to Caller: Self Org: [facility] Road Chief Complaint: KNEE Call Outcome: See MD Within 24 Hours Client: Company: [facility] PhoneLine1: [facility], Triage Patient: Alize Gramajo Caller Is: Alize [...] LB1 Guideline: Knee Pain - (Adult After-Hours) [[id number]] Triage Level: Pre Disposition: RN Override: See Physician within 24 Hours See/call Doctor Disagree Reason: Go to Facility: Patient Understands Instructions: Yes Questions / Responses For: Knee Pain - (Adult After-Hours) [[id number]] TRIAGE QUESTION (TRIGGERING DISPOSITION) Response [1] Very swollen joint AND [2] no fever R/O: forgotten trauma, arthritis CARE ADVICE Response 1. CARE ADVICE given per Knee Pain (Adult) guideline. Alize Gramajo Triage #: [id number] - [KNEE] Page 1 of 2 MD [...] video telemedicine visit. Call your doctor (or PASSENGER BOOKING CLERK/PA) when the office opens and make an appointment. 1001. PAIN MEDICINES: * For pain relief, you can take either acetaminophen, ibuprofen, or naproxen. * Before taking any medicine, read all the instructions on the package. Alize Gramajo Triage #: [id number] - [KNEE] Page 2 of 2 documented in this encounter Plan of Treatment Upcoming Encounters Date Type Department Care Team (Latest Contact Info) Description 08/29/2024 1:00 PM EST Hospital En[place] [address] Roland Gooden MD [facility] [place] [address] 08/29/2024 1:00 PM EST - 08/29/2024 2:00 PM EST [place] [address] Roland Gooden MD [facility] [place] [address] EGD, UPPER GI ENDOSCOPY (WRVU 2.09) 10/02/2024 1:00 PM EDT Office Visit Ophthalmology at [place] [phone] Juanpablo Hernandez MD [facility] OPHTHALMOLOGY [place], [place] [phone] 10/21/2024 9:30 AM EDT Office Visit Internal Medicine at [address] [phone] Daryn Garrett MD [facility] DR LILI AZEVEDO - PRIMARY CARE [place], [place] [phone] 01/30/2025 1:30 PM EDT Laboratory Appointment Lab at [facility] Hematology Oncology [address] [place] [phone] 01/30/2025 3:[address] [place] [address] Arturo Cordero MD [facility] DR HEMATOLOGY [place] [address] 01/30/2025 4:15 PM EDT Office Visit Hematology [place] [address] Arturo Cordero MD [facility] DR HEMATOLOGY [place] [address] Scheduled Procedures Name Priority Associated Diagnoses Date/Ti me EGD, UPPER GI ENDOSCOPY (WRVU 2.09) Irritable bowel syndrome with constipation 08/29/2024 1:00 PM EST COLONOSCOPY, DIAGNOSTIC (WRVU 3.26) Irritable bowel syndrome with constipation 08/29/2024 1:00 PM EST documented as of this encounter Visit Diagnoses Not on filedocumented in this encounter Care Teams Discharge Specialist Relationship Specialty Start Date End Date Rodney Padilla MD PCP - General 07/18/22 04/09/24 documented as of this encounter
--- OUTSIDE RECORDS SUMMARY | 2024-08-20 15:53 | XMS_ITS | Encounter Summary ---
Author Organization [facility], [facility] Address [facility] [place] [address] Care Team Providers Care Track Inspecting Supervisor Name Role Phone Rodney Padilla MD Primary Care Provider Reason for Visit * Reason Comments Medication Refill Encounter Details Date Type Department Care Team (Late st Contact Info) Description 02/19/2023 Refill Family Medicine at [facility] [address] [place] [address] Luis E Narayan MD [facility] DR LILI W[place] [address] Social History Tobacco Use Types Packs/Day Years [...] 1:00 PM EST Hospital Encounter [place] [address] Roland Gooden MD [facility] [place] [address] 08/29/2024 1:00 PM EST - 08/29/2024 2:00 PM EST Surgery Gastroenterology at [place] [phone] Roland Gooden MD [facility] [address] EGD, UPPER GI ENDOSCOPY (WRVU 2.09) 10/02/2024 1:00 PM EDT Office [place] [address] Juanpablo Hernandez MD [facility] [place] [address] 10/21/2024 9:30 AM EDT Office Visit Internal Medicine at [address] [phone] Daryn Garrett MD [facility] DR LILI WALKER - PRIMARY CARE [place], [place] [phone] 01/30/2025 1:30 PM EDT Laboratory Appointment Lab at [facility] Hematology Oncology [address] [place] [phone] 01/30/2025 3:[address] [place] [address] Arturo Cordero MD [facility] DR HEMATOLOGY [place] [address] 01/30/2025 4:15 PM EDT Office Visit Hematology [place] [address] Arturo Cordero MD [facility] DR HEMATOLOGY [place] [address] Scheduled Procedures Name Priority Associated Diagnoses Date/Ti me EGD, UPPER GI ENDOSCOPY (WRVU 2.09) Irritable bowel syndrome with constipation 08/29/2024 1:00 PM EST COLONOSCOPY, DIAGNOSTIC (WRVU 3.26) Irritable bowel syndrome with constipation 08/29/2024 1:00 PM EST documented as of this encounter Visit Diagnoses Not on filedocumented in this encounter Care Teams Track Inspecting Supervisor Relationship Specialty Start Date End Date Rodney Padilla MD PCP - General 07/18/22 04/09/24 documented as of this encounter
--- OUTSIDE RECORDS SUMMARY | 2024-08-20 15:53 | XMS_ITS | Encounter Summary ---
Author Organization [facility] Address [facility] [place] [address] Care Team Providers Care Fastener Sewing Machine Operator Name Role Phone Rodney Padilla [...] 1:00 PM EST Hospital Encounter [place] [address] Roland Gooden MD [facility] [place] [address] 08/29/2024 1:00 PM EST - 08/29/2024 2:00 PM EST [place] [phone] Roland Gooden MD [facility] [place] [address] EGD, UPPER GI ENDOSCOPY (WRVU 2.09) 10/02/2024 1:00 PM EDT Office [place] [phone] Juanpablo Hernandez MD [facility] [place] [address] 10/21/2024 9:30 AM EDT Office Visit Internal Medicine at [facility] [address] [place] [phone] Daryn Garrett MD [facility] DR LIL[place] [address] 01/30/2025 1:30 PM EDT Laboratory Appointment Lab at [facility] Hematology Oncology [address] [place], [place] [phone] 01/30/2025 3:[address] Scan at [place] [phone] Arturo Cordero MD [facility] [place] [address] 01/30/2025 4:15 PM EDT Office Visit Hematology and Oncology at [place] [phone] Arturo Cordero MD [facility] [address] [place] [address] Scheduled Procedures Name Priority Associated Diagnoses Date/Ti me EGD, UPPER GI ENDOSCOPY (WRVU 2.09) Irritable bowel syndrome with constipation 08/29/2024 1:00 PM EST COLONOSCOPY, DIAGNOSTIC (WRVU 3.26) Irritable bowel syndrome with constipation 08/29/2024 1:00 PM EST documented as of this encounter Visit Diagnoses Not on filedocumented in this encounter Care Teams Fastener Sewing Machine Operator Relationship Specialty Start Date End Date Rodney Padilla MD PCP - General 07/18/22 04/09/24 documented as of this encounter
--- OUTSIDE RECORDS SUMMARY | 2024-08-20 15:54 | XMS_ITS | Encounter Summary ---
Author Organization [facility] [place] [address] Care Team Providers Care Heat Treat Technician Name Role Phone Rodney Padilla MD Primary Care Provider Reason for Visit * Reason Comments Diabetes Encounter Details Date Type Department Care Team (Late st Contact Info) Description 10/05/2022 3:30 PM EDT Clinical Support Family Medicine at [facility] [address] [place] [address] Julia Low, [facility] Type 2 [...] * Julia Low [facility] - 10/05/2022 3:30 PM EDT [...] Daily Avg 157 168 131 138 eA1c [id number] 8.46 7.20 7.44 Acute complications of diabetes: [...] 5 ??? fluticasone propionate (Flonase) 50 mcg/actuation [place], Suspension 1 spray by Each Nare route [...] 7 DAYS ??? clotrimazole (Mycelex) 10 mg Tannre Take 1 tablet by mouth 5 times [...] 1 each 11 ??? FreeStyle Sanjana 2 [place] Misc 1 each by Other route daily. [...] glycohemoglobin and other lab monitoring discussed and continuous churn buttermaker diabetic complications discussed. Efforts to improve adherence [...] 1:00 PM EST Hospital Encounter Gastroenterology at [place] [phone] Roland Gooden MD [facility] [place] [address] 08/29/2024 1:00 PM EST - 08/29/2024 2:00 PM EST Surgery [place] [phone] Roland Gooden MD [facility] [address] EGD, UPPER GI ENDOSCOPY (WRVU 2.09) 10/02/2024 1:00 PM EDT Office [place] [phone] Juanpablo Hernandez MD [facility] [place] [address] 10/21/2024 9:30 AM EDT Office Visit Internal Medicine at [address] [place] [address] Daryn Garrett MD [facility] DR [place] [address] 01/30/2025 1:30 PM EDT Laboratory Appointment Lab at [facility] Hematology Oncology [address] [place] [phone] 01/30/2025 3:[address] [place] [phone] Arturo Cordero MD [facility] [place] [address] 01/30/2025 4:15 PM EDT Office Visit Hematology [place] [phone] Arturo Cordero MD [facility] [place] [address] Scheduled Procedures Name Priority Associated Diagnoses Date/Ti [...] syndrome documented in this encounter Care Teams Heat Treat Technician Relationship Specialty Start Date End Date Rodney Padilla MD PCP - General 07/18/22 04/09/24 documented as of this encounter
--- OUTSIDE RECORDS SUMMARY | 2024-08-20 15:54 | XMS_ITS | Encounter Summary ---
[place] [address] Care Team Providers Care Project Consultant Name Role Phone Rodney Padilla MD Primary Care Provider Reason for Visit * Diagnostic Test (Routine) - Closed Specialty Diagnoses / Procedures Referred By Gonzalez kumari Referred To Contact Radiology Diagnoses Dyspepsia Nausea without vomiting Procedures NM Gastric Emptying Scan Alejandra Pop, MANIFOLD BUILDER [address] [place] [address] [place] [address] Referral ID Status Reason Start Date Expiration Date V isits Requested Visits Authorized [id number] Closed Specialty Service Requested 06/17/2022 12/17/2023 1 1 Encounter Details Date Type Department Care Team (Latest Contact Info) Description 10/18/2022 10:22 AM EDT - 10/18/2022 11:59 PM EDT Hospital Encounter [place] [address] Alejandra Pop MANIFOLD BUILDER [address] [place] [address] Discharge Disposition: Home Social History [...] 09/26/2022 09/19/2023 fluticasone propionate (Flonase) 50 mcg/actuation [place], Suspension 1 spray by Each Nare route [...] 1 each 12/10/2021 02/04/2023 FreeStyle Sanjana 2 [place] MiscIndications:diabe escobar mellitus 1 each by Other [...] 1:00 PM EST Hospital Encounter [place] [address] Roland Gooden MD [facility] [place] [address] 08/29/2024 1:00 PM EST - 08/29/2024 2:00 PM EST Surgery Gastroenterology at [place] [phone] Roland Gooden MD [facility] [place] [address] EGD, UPPER GI ENDOSCOPY (WRVU 2.09) 10/02/2024 1:00 PM EDT Office Visit Ophthalmology at [place] [phone] Juanpablo Hernandez MD [facility] [place] [address] 10/21/2024 9:30 AM EDT Office Visit Internal Medicine at [address] [phone] Daryn Garrett MD [facility] DR LIL[place] [address] 01/30/2025 1:30 PM EDT Laboratory Appointment Lab at [facility] Hematology Oncology [address] [place], [place] [phone] 01/30/2025 3:[address] Scan at [place] [phone] Arturo Cordero MD [facility] [place] [address] 01/30/2025 4:15 PM EDT Office Visit Hematology and Oncology at [place] [phone] Arturo Cordero MD [facility] HEMATOLOGY AND ONCOLOGY [place] [phone] Scheduled Procedures Name Priority Associated Diagnoses Date/Ti [...] questions please contact the health home care scheduler that requested your imaging first. ? Narrative [...] have questions please contactthe health home care scheduler that requested your imaging first. Electronically signed by: Brett Chapman MD, [facility]([phone]), at 10/18/2022 3:12 PM Alejandra Pop MANIFOLD BUILDER IMG NM ORDERABLE S documented in this encounter Visit Diagnoses Not on filedocumented in this encounter Care Teams Project Consultant Relationship Specialty Start Date End Date Rodney Padilla MD PCP - General 07/18/22 04/09/24 documented as of this encounter
--- OUTSIDE RECORDS SUMMARY | 2024-08-20 15:54 | XMS_ITS | Encounter Summary ---
[place] [address] Care Team Providers Care Ward Maid Name Role Phone Rodney Padilla MD Primary Care Provider [phone] Reason for Visit * Diagnostic Test (Routine) - Closed Specialty Diagnoses / Procedures Referred By Gonzalez kumari Referred To Contact Radiology Diagnoses Dyspepsia Nausea without vomiting Procedures NM Gastric Emptying Scan Alejandra Pop, SURVEY METHODOLOGIST [address] [place] [address] [place] [address] Referral ID Status Reason Start Date Expiration Date V isits Requested Visits Authorized [id number] Closed Specialty Service Requested 06/17/2022 12/17/2023 1 1 Encounter Details Date Type Department Care Team (Latest Contact Info) Description 10/18/2022 10:22 AM EDT - 10/18/2022 11:59 PM EDT Hospital Encounter [place] [address] Alejandra Pop SURVEY METHODOLOGIST [address] [place] [address] Discharge Disposition: Home Social History [...] 09/26/2022 09/19/2023 fluticasone propionate (Flonase) 50 mcg/actuation [place], Suspension 1 spray by Each Nare route [...] 1 each 12/10/2021 02/04/2023 FreeStyle Sanjana 2 [place] MiscIndications:diabe escobar mellitus 1 each by Other [...] 1:00 PM EST Hospital Encounter [place] [address] Roland Gooden MD [facility] [place] [address] 08/29/2024 1:00 PM EST - 08/29/2024 2:00 PM EST Surgery Gastroenterology at [place] [phone] Roland Gooden MD [facility] [place] [address] EGD, UPPER GI ENDOSCOPY (WRVU 2.09) 10/02/2024 1:00 PM EDT Office Visit Ophthalmology at [place] [phone] Juanpablo Hernandez MD [facility] [place] [address] 10/21/2024 9:30 AM EDT Office Visit Internal Medicine at [address] [phone] Daryn Garrett MD [facility] DR LILI [place] [address] 01/30/2025 1:30 PM EDT Laboratory Appointment Lab at [facility] Hematology Oncology [address] [place], [place] [phone] 01/30/2025 3:[address] Scan at [place] [phone] Arturo Cordero MD [facility] [place] [address] 01/30/2025 4:15 PM EDT Office Visit Hematology and Oncology at [place] [phone] Arturo Cordero MD [facility] HEMATOLOGY AND ONCOLOGY [place] [phone] Scheduled Procedures Name Priority Associated Diagnoses Date/Ti [...] who have questions please contact the health neonatal intensive care nurse that requested your imaging [...] patients who have questions please contactthe health neonatal intensive care nurse that requested your imaging first. Alejandra Pop SURVEY METHODOLOGIST IMG NM ORDERABLE S documented in this encounter Visit Diagnoses Not on filedocumented in this encounter Care Teams Ward Maid Relationship Specialty Start Date End Date Rodney Padilla MD PCP - General 07/18/22 04/09/24 documented as of this encounter
--- OUTSIDE RECORDS SUMMARY | 2024-08-20 15:54 | XMS_ITS | Encounter Summary ---
Author Organization [facility] [place] [address] Care Team Providers Care Program Dir Name Role Phone Rodney Padilla MD Primary Care Provider Encounter Details Date Type Department Care Team (Late st Contact Info) Description 08/25/2022 Telephone Family Medicine at [address] [place] [phone] Julia Gooden Social History Tobacco Use Types [...] - 08/25/2022 12:55 PM EST Copied from [facility] #[id number]. Topic: Forms/Letters - Health/Immunization Forms >> Aug [...] 1:00 PM EST Hospital Encounter [place] [address] Roland Gooden MD [facility] [place] [address] 08/29/2024 1:00 PM EST - 08/29/2024 2:00 PM EST Surgery Gastroenterology at [address] Roland Gooden MD [facility] [place] [address] EGD, UPPER GI ENDOSCOPY (WRVU 2.09) 10/02/2024 1:00 PM EDT Office Visit Ophthalmology at [place] [phone] Juanpablo Hernandez MD [facility] [place] [address] 10/21/2024 9:30 AM EDT Office Visit Internal Medicine at [address] [phone] Daryn Garrett MD [facility] DR LILI [place] [address] 01/30/2025 1:30 PM EDT Laboratory Appointment Lab at [facility] Hematology Oncology [address] [place], [place] [phone] 01/30/2025 3:[address] Scan at [place] [phone] Arturo Cordero MD [facility] [place]AT[place] [address] 01/30/2025 4:15 PM EDT Office Visit Hematology and Oncology at [place] [phone] Arturo Cordero MD [facility] DR [place] [address] Scheduled Procedures Name Priority Associated Diagnoses Date/Ti me EGD, UPPER GI ENDOSCOPY (WRVU 2.09) Irritable bowel syndrome with constipation 08/29/2024 1:00 PM EST COLONOSCOPY, DIAGNOSTIC (WRVU 3.26) Irritable bowel syndrome with constipation 08/29/2024 1:00 PM EST documented as of this encounter Visit Diagnoses Not on filedocumented in this encounter Care Teams Program Dir Relationship Specialty Start Date End Date Rodney Padilla MD PCP - General 07/18/22 04/09/24 documented as of this encounter
--- OUTSIDE RECORDS SUMMARY | 2024-08-20 15:54 | XMS_ITS | Encounter Summary ---
Author Organization [facility] Address [facility] [address] Care Team Providers Care Track Laying Supervisor Name Role Phone Luis E Narayan MD Primary Care Provider [phone] Encounter Details Date Type Department Care Team [...] 1:00 PM EST Hospital En[place] [phone] Roland Gooden MD [facility] [place] [address] 08/29/2024 1:00 PM EST - 08/29/2024 2:00 PM EST [place] [phone] Roland Gooden MD [facility] [place] [address] EGD, UPPER GI ENDOSCOPY (WRVU 2.09) 10/02/2024 1:00 PM EDT Office [place] [phone] Juanpablo Hernandez MD [facility] [place] [address] 10/21/2024 9:30 AM EDT Office Visit Internal Medicine at [facility] [address] [place] [phone] Daryn Garrett MD [facility] DR LILI W[place] [address] 01/30/2025 1:30 PM EDT Laboratory Appointment Lab at [facility] Hematology Oncology [address] [place] [phone] 01/30/2025 3:[address] [place] [place] [phone] Arturo Cordero MD [facility] HEMATOLOGY [place] [address] 01/30/2025 4:15 PM EDT Office Visit H[place]ology [place] [phone] Arturo Cordero MD [facility] DR HEMATOLOGY [place] [address] Scheduled Procedures Name Priority Associated Diagnoses Date/Ti me EGD, UPPER GI ENDOSCOPY (WRVU 2.09) Irritable bowel syndrome with constipation 08/29/2024 1:00 PM EST COLONOSCOPY, DIAGNOSTIC (WRVU 3.26) Irritable bowel syndrome with constipation 08/29/2024 1:00 PM EST documented as of this encounter Visit Diagnoses Not on filedocumented in this encounter Care Teams Track Laying Supervisor Relationship Specialty Start Date End Date Luis E Narayan MD [facility] DR LILI WALK[place] [address] PCP - General Family Medicine 01/20/22 07/17/22 documented as of this encounter
--- OUTSIDE RECORDS SUMMARY | 2024-08-20 15:54 | XMS_ITS | Encounter Summary ---
[place] [address] Care Team Providers Care Rotary Slicing Machine Operator Name Role Phone Rodney Padilla MD Primary Care Provider Reason for Visit * Diagnostic Test (Routine) - Closed Specialty Diagnoses / Procedures Referred By Gonzalez kumari Referred To Contact Radiology Diagnoses Dyspepsia Nausea without vomiting Procedures NM Gastric Emptying Scan Alejandra Pop, [employer]OT[employer] K[employer] BUILDER [address] [place] [address] [place] [address] Referral ID Status Reason Start Date Expiration Date V isits Requested Visits Authorized [id number] Closed Specialty Service Requested 06/17/2022 12/17/2023 1 1 Encounter Details Date Type Department Care Team (Latest Contact Info) Description 10/18/2022 10:21 AM EDT Hospital Encounter [place] [address] Alejandra Pop APRN [address] [place] [address] Discharge Disposition: Home Social History [...] 09/26/2022 09/19/2023 fluticasone propionate (Flonase) 50 mcg/actuation [place], Suspension 1 spray by Each Nare route [...] 1 each 12/10/2021 02/04/2023 FreeStyle Sanjana 2 [place] MiscIndications:diabe escobar mellitus 1 each by Other [...] 1:00 PM EST Hospital Encounter [place] [address] Roland Gooden MD [facility] [place] [address] 08/29/2024 1:00 PM EST - 08/29/2024 2:00 PM EST Surgery Gastroenterology at [address] Roland Gooden MD [facility] [place] [address] EGD, UPPER GI ENDOSCOPY (WRVU 2.09) 10/02/2024 1:00 PM EDT Office Visit Ophthalmology at [place] [phone] Juanpablo Hernandez MD [facility] [place] [address] 10/21/2024 9:30 AM EDT Office Visit Internal Medicine at [address] [phone] Daryn Garrett MD [facility] DR LILI [place] [address] 01/30/2025 1:30 PM EDT Laboratory Appointment Lab at [facility] Hematology Oncology [address] [place], [place] [phone] 01/30/2025 3:[address] Scan at [place] [phone] Arturo Cordero MD [facility] [place] [address] 01/30/2025 4:15 PM EDT Office Visit Hematology and Oncology at [place] [phone] Arturo Cordero MD [facility] [place] [address] Scheduled Procedures Name Priority Associated Diagnoses Date/Ti [...] have questions please contact the health animal daycare provider that requested your imaging first. ? Electronically signed by: Brett Chapman MD, [facility] ([phone]), at 10/18/2022 3:12 PM Narrative 10/18/2022 3:12 [...] who have questions please contactthe health animal daycare provider that requested your imaging first. Electronically signed by: Brett Chapman MD, [facility]([phone]), at 10/18/2022 3:12 PM Alejandra Sal Pop POTTER[employer] KIL[employer] BUILDER IMG NM ORDERABLE S documented in this encounter Visit Diagnoses Not on filedocumented in this encounter Care Teams Rotary Slicing Machine Operator Relationship Specialty Start Date End Date Rodney Padilla MD PCP - General 07/18/22 04/09/24 documented as of this encounter
--- OUTSIDE RECORDS SUMMARY | 2024-08-20 15:54 | XMS_ITS | Encounter Summary ---
Author Organization [facility] [place] [address] Care Team Providers Care Machine Puller Over Name Role Phone Rodney Padilla MD Primary Care Provider Encounter Details Date Type Department Care Team (Late st Contact Info) Description 09/30/2022 Telephone Family Medicine at [address] [place] [phone] Julia Low, [facility] Social History Tobacco Use Types [...] 1:00 PM EST Hospital Encounter Gastroenterology at [place] [phone] Roland Gooden MD [facility] [place] [address] 08/29/2024 1:00 PM EST - 08/29/2024 2:00 PM EST Surgery Gastroenterology at [place] [phone] Roland Gooden MD [facility] [place] [address] EGD, UPPER GI ENDOSCOPY (WRVU 2.09) 10/02/2024 1:00 PM EDT Office Visit Ophthalmology at [place] [phone] Juanpablo Hernandez MD [facility] [place] [address] 10/21/2024 9:30 AM EDT Office Visit Internal Medicine at [facility] [address] [place] [address] Daryn Garrett MD [facility] DR LILI WALKER [place] [address] 01/30/2025 1:30 PM EDT Laboratory Appointment Lab at [facility] Hematology Oncology [address] [place] [phone] 01/30/2025 3:[address] [place] [phone] Arturo Cordero MD [facility] HEMATOLOGY [place] [address] 01/30/2025 4:15 PM EDT Office Visit Hematology [place] [address] Arturo Cordero MD [facility] HEMATOLOGY [place] [address] Scheduled Procedures Name Priority Associated Diagnoses Date/Ti me EGD, UPPER GI ENDOSCOPY (WRVU 2.09) Irritable bowel syndrome with constipation 08/29/2024 1:00 PM EST COLONOSCOPY, DIAGNOSTIC (WRVU 3.26) Irritable bowel syndrome with constipation 08/29/2024 1:00 PM EST documented as of this encounter Visit Diagnoses Not on filedocumented in this encounter Care Teams Machine Puller Over Relationship Specialty Start Date End Date Rodney Padilla MD PCP - General 07/18/22 04/09/24 documented as of this encounter
--- OUTSIDE RECORDS SUMMARY | 2024-08-20 15:54 | XMS_ITS | Encounter Summary ---
Author Organization [facility] Address [facility] [place] [address] Care Team Providers Care Program Advisor Name Role Phone Rodney Padilla MD Primary Care Provider Reason for Visit * Reason Onset Date Comments Medication Refill 09/25/2022 Encounter Details Date Type Department Care Team (Late st Contact Info) Description 09/25/2022 Refill Family Medicine at [facility] [address] [place] [address] Luis E Narayan MD [facility] DR LILI WALKER[place] [address] Social History Tobacco Use Types Packs/Day Years [...] Notes * [facility]/26/2022 11:40 AM EDT Prescription [...] 1:00 PM EST Hospital En[place] [address] Roland Gooden MD [facility] [place] [address] 08/29/2024 1:00 PM EST - 08/29/2024 2:00 PM EST [place] [address] Roland Gooden MD [facility] [address] EGD, UPPER GI ENDOSCOPY (WRVU 2.09) 10/02/2024 1:00 PM EDT Office [place] [phone] Juanpablo Hernandez MD [facility] [place] [address] 10/21/2024 9:30 AM EDT Office Visit Internal Medicine at [address] [phone] Daryn Garrett MD [facility] DR LILI WALKER - PRIMARY CARE [place], [place] [phone] 01/30/2025 1:30 PM EDT Laboratory Appointment Lab at [facility] Hematology Oncology [address] [place] [phone] 01/30/2025 3:[address] [place] [address] Arturo Cordero MD [facility] DR HEMATOLOGY [place] [address] 01/30/2025 4:15 PM EDT Office Visit Hematology [place] [address] Arturo Cordero MD [facility] DR HEMATOLOGY [place] [address] Scheduled Procedures Name Priority Associated Diagnoses Date/Ti me EGD, UPPER GI ENDOSCOPY (WRVU 2.09) Irritable bowel syndrome with constipation 08/29/2024 1:00 PM EST COLONOSCOPY, DIAGNOSTIC (WRVU 3.26) Irritable bowel syndrome with constipation 08/29/2024 1:00 PM EST documented as of this encounter Visit Diagnoses Not on filedocumented in this encounter Care Teams Program Advisor Relationship Specialty Start Date End Date Rodney Padilla MD PCP - General 07/18/22 04/09/24 documented as of this encounter
--- OUTSIDE RECORDS SUMMARY | 2024-08-20 15:54 | XMS_ITS | Encounter Summary ---
[place] [address] Care Team Providers Care Curing Supervisor Name Role Phone Rodney Padilla MD Primary Care Provider Reason for Visit * Diagnostic Test (Routine) - Closed Specialty Diagnoses / Procedures Referred By Gonzalez kumari Referred To Contact Radiology Diagnoses Dyspepsia Nausea without vomiting Procedures NM Gastric Emptying Scan Alejnadra Pop, NETWORK ANALYST [address] [place] [address] [place] [address] Referral ID Status Reason Start Date Expiration Date V isits Requested Visits Authorized [id number] Closed Specialty Service Requested 06/17/2022 12/17/2023 1 1 Encounter Details Date Type Department Care Team (Latest Contact Info) Description 10/18/2022 10:22 AM EDT - 10/18/2022 11:59 PM EDT Hospital Encounter [place] [address] Alejandra Pop NETWORK ANALYST [address] [place] [address] Discharge Disposition: Home Social History [...] 09/26/2022 09/19/2023 fluticasone propionate (Flonase) 50 mcg/actuation [place], Suspension 1 spray by Each Nare route [...] 1 each 12/10/2021 02/04/2023 FreeStyle Sanjana 2 [place] MiscIndications:diabe escobar mellitus 1 each by Other [...] 1:00 PM EST Hospital Encounter [place] [address] Roland Gooden MD [facility] [place] [address] 08/29/2024 1:00 PM EST - 08/29/2024 2:00 PM EST Surgery Gastroenterology at [place] [phone] Roland Gooden MD [facility] [place] [address] EGD, UPPER GI ENDOSCOPY (WRVU 2.09) 10/02/2024 1:00 PM EDT Office Visit Ophthalmology at [place] [phone] Juanpablo Hernandez MD [facility] [address] 10/21/2024 9:30 AM EDT Office Visit Internal Medicine at [address] [phone] Daryn Garrett MD [facility] DR LILI WALKER - [place] [address] 01/30/2025 1:30 PM EDT Laboratory Appointment Lab at [facility] Hematology Oncology [address] [place], [place] [phone] 01/30/2025 3:[address] Scan at [place] [phone] Arturo Cordero MD [facility] HEMATOLOGY [place] [address] 01/30/2025 4:15 PM EDT Office Visit Hematology and Oncology at [place] [phone] Arturo Cordero MD [facility] HEMATOLOGY AND ONCOLOGY [place] [phone] Scheduled Procedures Name Priority Associated Diagnoses Date/Ti [...] have questions please contact the health healthcare network pricing consultant that requested your imaging first. ? [...] who have questions please contactthe health healthcare network pricing consultant that requested your imaging first. Electronically signed by: Brett Chapman MD, [facility]([phone]), at 10/18/2022 3:12 PM Alejandra Pop NETWORK ANALYST IMG NM ORDERABLE S documented in this encounter Visit Diagnoses Not on filedocumented in this encounter Care Teams Curing Supervisor Relationship Specialty Start Date End Date Rodney Padilla MD PCP - General 07/18/22 04/09/24 documented as of this encounter
--- OUTSIDE RECORDS SUMMARY | 2024-08-20 15:54 | XMS_ITS | Encounter Summary ---
Author Organization [facility] Address [facility] [place] [address] Care Team Providers Care Fabric Sourcer Name Role Phone Rodney Padilla MD Primary Care Provider Reason for Visit * Reason Comments Medication Refill Encounter Details Date Type Department Care Team (Late st Contact Info) Description 09/15/2022 Refill Family Medicine at [facility] [address] [place] [phone] Tamera Khan APRN [facility] DR LILI WALK[place] [address] Social History Tobacco Use Types Packs/Day Years [...] 1:00 PM EST Hospital Encounter [place] [phone] Roland Gooden MD [facility] [place] [address] 08/29/2024 1:00 PM EST - 08/29/2024 2:00 PM EST Surgery [place] [phone] Roland Gooden MD [facility] [place] [address] EGD, UPPER GI ENDOSCOPY (WRVU 2.09) 10/02/2024 1:00 PM EDT Office [place] [phone] Juanpablo Hernandez MD [facility] [place] [address] 10/21/2024 9:30 AM EDT Office Visit Internal Medicine at [address] [phone] Daryn Garrett MD [facility] DR LILI [place] [address] 01/30/2025 1:30 PM EDT Laboratory Appointment Lab at [facility] Hematology Oncology [address] [place] [phone] 01/30/2025 3:[address] [place] [address] Arturo Cordero MD [facility] DR HEMATOLOG[place] [address] 01/30/2025 4:15 PM EDT Office Visit Hematology [place] [address] Arturo Cordero MD [facility] HEMATOLOGY [place] [address] Scheduled Procedures Name Priority Associated Diagnoses Date/Ti me EGD, UPPER GI ENDOSCOPY (WRVU 2.09) Irritable bowel syndrome with constipation 08/29/2024 1:00 PM EST COLONOSCOPY, DIAGNOSTIC (WRVU 3.26) Irritable bowel syndrome with constipation 08/29/2024 1:00 PM EST documented as of this encounter Visit Diagnoses Not on filedocumented in this encounter Care Teams Fabric Sourcer Relationship Specialty Start Date End Date Rodney Padilla MD PCP - General 07/18/22 04/09/24 documented as of this encounter
--- OUTSIDE RECORDS SUMMARY | 2024-08-20 15:54 | XMS_ITS | Encounter Summary ---
Author Organization [facility] Address [facility] [place] [address] Care Team Providers Care Fire Fighter Name Role Phone Rodney Padilla MD Primary [...] 1:00 PM EST Hospital Encounter [place] [address] Roland Gooden MD [facility] [place] [address] 08/29/2024 1:00 PM EST - 08/29/2024 2:00 PM EST [place] [phone] Roland Gooden MD [facility] [place] [address] EGD, UPPER GI ENDOSCOPY (WRVU 2.09) 10/02/2024 1:00 PM EDT Office [place] [phone] Juanapblo Hernandez MD [facility] [place] [address] 10/21/2024 9:30 AM EDT Office Visit Internal Medicine at [facility] [address] [place] [phone] Daryn Garrett MD [facility] DR LILI WALKER - [place] [address] 01/30/2025 1:30 PM EDT Laboratory Appointment Lab at [facility] Hematology Oncology [address] [place], [place] [phone] 01/30/2025 3:[address] Scan at [place] [phone] Arturo Cordero MD [facility] HEMATOLOGY [place] [address] 01/30/2025 4:15 PM EDT Office Visit Hematology and Oncology at [place] [phone] Arturo Cordero MD [facility] DR HEMATOLOGY [place] [address] Scheduled Procedures Name Priority Associated Diagnoses Date/Ti me EGD, UPPER GI ENDOSCOPY (WRVU 2.09) Irritable bowel syndrome with constipation 08/29/2024 1:00 PM EST COLONOSCOPY, DIAGNOSTIC (WRVU 3.26) Irritable bowel syndrome with constipation 08/29/2024 1:00 PM EST documented as of this encounter Visit Diagnoses Not on filedocumented in this encounter Care Teams Fire Fighter Relationship Specialty Start Date End Date Rodney Padilla MD PCP - General 07/18/22 04/09/24 documented as of this encounter
--- OUTSIDE RECORDS SUMMARY | 2024-08-20 15:54 | XMS_ITS | Encounter Summary ---
Author Organization [facility] [place] [address] Care Team Providers Care Telecommunications Engineer Name Role Phone Rodney Padilla MD Primary Care Provider [phone] Reason for Visit * Reason Comments Eye Problem Diabetic Eye Exam Encounter Details Date Type Department Care Team (Late st Contact Info) Description 10/05/2022 12:45 PM EDT Office [place] [address] Juanpablo Hernandez MD [facility] [place] [place] [address] Malignant melanoma of conjunctiva, left; Type 2 [...] 1:00 PM EST Hospital Encounter [place] [address] Roland Gooden MD [facility] [place] [address] 08/29/2024 1:00 PM EST - 08/29/2024 2:00 PM EST Surgery [place] [phone] Roland Gooden MD [facility] [place] [address] EGD, UPPER GI ENDOSCOPY (WRVU 2.09) 10/02/2024 1:00 PM EDT Office Visit Ophthalmology at [place] [phone] Juanpablo Hernandez MD [facility] [place] [address] 10/21/2024 9:30 AM EDT Office Visit Internal Medicine at [address] [phone] Daryn Garrett MD [facility] DR LILI [place] [address] 01/30/2025 1:30 PM EDT Laboratory Appointment Lab at [facility] Hematology Oncology [address] [place] [phone] 01/30/2025 3:[address] [place] [phone] Arturo Cordero MD [facility] [place] [address] 01/30/2025 4:15 PM EDT Office Visit Hematology [place] [phone] Arturo Cordero MD [facility] [place] [address] Scheduled Procedures Name Priority Associated Diagnoses Date/Ti wv EGD, UPPER GI ENDOSCOPY (WRVU 2.09) Irritable [...] syndrome documented in this encounter Care Teams Telecommunications Engineer Relationship Specialty Start Date End Date Rodney Padilla MD PCP - General 07/18/22 04/09/24 documented as of this encounter
--- OUTSIDE RECORDS SUMMARY | 2024-08-20 15:54 | XMS_ITS | Encounter Summary ---
Author Organization [facility] [place] [address] Care Team Providers Care End User Consultant Name Role Phone Luis E Narayan MD Primary Care Provider Reason for Visit * Reason Comments Follow-up Encounter Details Date Type Department Care Team (Late st Contact Info) Description 06/23/2022 2:45 PM EST Office Visit [place] [address] Arturo Cordero MD [facility] DR HEMATOLOGY [place] [address] Leandra Lopes APRN [facility] DR HEMATOLOGY [place] [address] Malignant melanoma of conjunctiva, left (Primary Dx); [...] the original note were not included. [facility] FOLLOW UP NOTE REFERING PHYSICIAN: Dr. [...] management - fall 2018: saw a new machine rope maker and was referred to Dr. 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 Medina - 03/31/2020: saw her machine rope maker Dr. Hernandez and was noted to have [...] uses inhalerswith good effect ??? Atherosclerosis of [place] coronary artery of [place] heart with angina pectoris 10/09/2007 History of [...] 3.47) performed by Juanpablo Hernandez MD at [facility] ??? PRO EXCIS CORNEA LESN Left 05/14/2020 EXCISION OF LESION, CORNEA, EXCEPT PTERYGIUM (WRVU 7.5) performed by Juanpablo Hernandez MD at [facility] ??? PRO LAP, PARTIAL NEPHRECTOMY Left 06/28/2019 LAPAROSCOPY, PARTIAL NEPHRECTOMY, ROBOTIC ASSIST (WRVU 27.41) performed by Avila Medina MD at [facility] MAIN OR ??? 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 She continues to see Dr. Hernandez (machine rope maker), dermatology and PCP on regular basis. Surveillance [...] least annually, or as recommended by your molecular biology director. Last visit in Feb 2022. - Regular skin and lymph node self-examination should be performed. Please report any new lesions, lumps or bumps of concern to your molecular biology director or oncology team. 3) PCP for other [...] 1:00 PM EST Hospital Encounter Gastroenterology at [place] [phone] Roland Gooden MD [facility] [place] [address] 08/29/2024 1:00 PM EST - 08/29/2024 2:00 PM EST [place] [phone] Roland Gooden MD [facility] [place] [address] EGD, UPPER GI ENDOSCOPY (WRVU 2.09) 10/02/2024 1:00 PM EDT Office [place] [phone] Juanpablo Hernandez MD [facility] [place] [address] 10/21/2024 9:30 AM EDT Office Visit Internal Medicine at [facility] [address] [place] [phone] Daryn Garrett MD [facility] DR LILI AZEVEDO [place] [address] 01/30/2025 1:30 PM EDT Laboratory Appointment Lab at [facility] Hematology Oncology [address] [place] [phone] 01/30/2025 3:[address] [place] [place] [phone] Arturo Cordero MD [facility] DR HEMATOLOGY [place] [address] 01/30/2025 4:15 PM EDT Office Visit [place]ology [place] [address] Arturo Cordero MD [facility] DR HEMATOLOGY [place] [address] Scheduled Procedures Name Priority Associated Diagnoses Date/Ti me EGD, UPPER GI ENDOSCOPY (WRVU 2.09) Irritable bowel syndrome with constipation 08/29/2024 1:00 PM EST COLONOSCOPY, DIAGNOSTIC (WRVU 3.26) Irritable bowel syndrome with constipation 08/29/2024 1:00 PM EST documented as of this encounter Results * Lactate Dehydrogenase (12/29/2022 10:00 AM EDT) Lactate Dehydrogenase 175 110 - 220 unit/L [facility] Blood 12/29/2022 10:0 0 AM EDT 12/29/2022 10:13 AM EDT Narrative Resulting Agency Comment Spec In Lab Arturo Cordero MD CHEMISTRY ORDERABLES [facility] [place] [address] * (ABNORMAL) Comprehensive metabolic panel (non-fasting) (12/29/2022 10:00 AM EDT) Glucose 259(H) 65 - 199 mg/dL [facility] Comment:Diabetes: >=200 mg/d L plus symptoms Blood Urea Nitrogen 17 8 - 18 mg/dL [facility] Creatinine 0.84 0.70 - 1.20 mg/dL [facility] Sodium 140 135 - 145 mmol/L [facility] Potassium 4.5 3.5 - 5.0 mmol/L [facility] Comment: Please note: ??Patients with WBC >100,000 may have falsely elevated Potassium levels. ??For accurate Potassium quantification in these patients send serum separator tube (gold top) for subsequent determinations. ??Contact the Clinical Chemistry Laboratory if there are any questions. Chloride 104 98 - 107 mmol/L [facility] Carbon Dioxide 23 22 - 31 mmol/L [facility] Anion Gap 13 5 - 15 mmol/L [facility] Calcium 9.5 8.5 - 10.5 mg/dL [facility] Protein, Total 6.9 6.1 - 8.0 g/dL [facility] Albumin 4.1 3.2 - 5.2 g/dL [facility] Aspartate Aminotransferase 19 0 - 30 unit/L [facility] Alanine Aminotransferase 24 0 - 30 unit/L [facility] Alkaline Phosphatase 103 35 - 105 unit/L [facility] Bilirubin, Total 0.3 0.2 - 1.3 mg/dL [facility] Est Glomerular Filtration Rate 78 >=60 mL/min/1. 73 m?? [facility] Comment: This patient's estimated GFR [...] In Lab Arturo Cordero MD CHEMISTRY ORDERABLES [facility] [place] [address] documented in this encounter Visit Diagnoses Diagnosis Malignant melanoma of conjunctiva, left- Primary Malignant neoplasm of left kidney Irritable bowel syndrome with constipation Irritable bowel syndrome documented in this encounter Care Teams End User Consultant Relationship Specialty Start Date End Date Luis E Narayan MD [facility] DR LILI AZEVEDO[place] [address] PCP - General Family Medicine 01/20/22 07/17/22 documented as of this encounter
--- OUTSIDE RECORDS SUMMARY | 2024-08-20 15:54 | XMS_ITS | Encounter Summary ---
Author Organization [facility] Address [facility] [place] [address] Care Team Providers Care Enterprise Solutions Architect Name Role Phone Luis E Narayan MD Primary Care Provider [phone]- [phone] Reason for Visit * Reason Comments Follow-up Doesn't feel good, a lso just finished antibiotics for sinus infection, pt thinks there is some type of lung infection Encounter Details Date Type Department Care Team (Late st Contact Info) Description 07/07/2022 11:30 AM EST Office Visit Family Medicine at [facility] [address] [place] [phone] Tamera Khan, CLEANING AND WASHING EQUIPMENT OPERATOR [facility] DR LILI [place] [address] LLQ pain; Acute rhinosinusitis; Fatty liver Social [...] office to schedule a follow up. Call- [phone] to schedule the gastric emptying scan Nutrition: How to Make Healthier Food Choices From: familydoctor.org/oelbmsjqq-qfa-cm-nfew-zwclqwjia-axce-choices Having a healthy diet has a lot [...] made up of more than 50% fat. Plant Controls Specialist options, such as maria victoria food cake, can satisfy your sweet tooth without adding fat to your diet. Instead of this: Try this: Croissants, rolls, biscuits, and white breads Whole grain breads, including wheat, rye, and pumpernickel Doughnuts, pastries, and scones Pakistani muffins and small whole grain bagels Fried [...] almond, or cashew) butter Fried potatoes, including malawian fries, hash browns, and potato chips Baked [...] seafood is high in healthy polyunsaturated fat. Plains-3 fatty acids also are found in some [...] low-fat, high-calcium snack option. - Nonfat or Fijian yogurt can replace sour cream in many [...] made with whole milk Low-fat, nonfat, or Fijian yogurt Regular cheese, including Ghanaian, blue, brie, cheddar, karen, and parmesan Low-fat [...] and molasses cookies Shortening, butter, and margarine [place], canola, and soybean oils Regular mayonnaise Nonfat [...] follow up on her [facility] - questions about fatty liver dx on scan Recently was seen in the ED for sinus infection, finished course of abx Still having a non productive cough, sinus pressure and mild fever Denies chills, chest pain, shortness of breath Review of Systems As above I reviewed problem list and med list in [facility] Objective: BP 138/76 Pulse 79 Temp [...] 1:00 PM EST Hospital Encounter [place] [phone] Roland Gooden MD [facility] [place] [address] 08/29/2024 1:00 PM EST - 08/29/2024 2:00 PM EST Surgery [place] [phone] Roland Gooden MD [facility] [place] [address] EGD, UPPER GI ENDOSCOPY (WRVU 2.09) 10/02/2024 1:00 PM EDT Office [place] [phone] Juanpablo Hernandez MD [facility] [place] [address] 10/21/2024 9:30 AM EDT Office Visit Internal Medicine at [facility] [address] [place] [address] Daryn Garrett MD [facility] DR LILI [place] [address] 01/30/2025 1:30 PM EDT Laboratory Appointment Lab at [facility] Hematology Oncology [address] [place] [phone] 01/30/2025 3:[address] [place] [phone] Arturo Cordero MD [facility] [place] [address] 01/30/2025 4:15 PM EDT Office Visit Hematology [place] [address] Arturo Cordero MD [facility] DR [place] [address] Scheduled Procedures Name Priority Associated Diagnoses Date/Ti me EGD, UPPER GI ENDOSCOPY (WRVU 2.09) Irritable bowel syndrome with constipation 08/29/2024 1:00 PM EST COLONOSCOPY, DIAGNOSTIC (WRVU 3.26) Irritable bowel syndrome with constipation 08/29/2024 1:00 PM EST documented as of this encounter Visit Diagnoses Diagnosis LLQ pain Abdominal pain, left lower quadrant Acute rhinosinusitis Acute sinusitis, unspecified Fatty liver Other chronic nonalcoholic liver disease Irritable bowel syndrome with constipation Irritable bowel syndrome documented in this encounter Care Teams Enterprise Solutions Architect Relationship Specialty Start Date End Date Luis E Narayan MD [facility] DR LILI [place] [address] PCP - General Family Medicine 01/20/22 07/17/22 documented as of this encounter
--- OUTSIDE RECORDS SUMMARY | 2024-08-20 15:54 | XMS_ITS | Encounter Summary ---
Author Organization [facility], 1928–[address] [place] [address] Care Team Providers Care Conveyor Weigher Operator Name Role Phone Rodney Padilla MD Primary Care Provider Encounter Details Date Type Department Care Team (Late st Contact Info) Description 07/18/2022 Telephone Family Medicine at [facility] [address] [place] [phone] Rodney Padilla MD [address] [facility] [address] Social History Tobacco Use Types Packs/Day [...] [facility] this [facility] [...] 1:00 PM EST Hospital Encounter [place] [phone] Roland Gooden MD [facility] GASTROENTEROLOG Y [place], [place] [phone] 08/29/2024 1:00 PM EST - 08/29/2024 2:00 PM EST Surgery [place] [phone] Roland Gooden MD [facility] [place] [address] EGD, UPPER GI ENDOSCOPY (WRVU 2.09) 10/02/2024 1:00 PM EDT Office [place] [phone] Juanpablo Hernandez MD [facility] OPHTHALMOLOGY [place], [place] [phone] 10/21/2024 9:30 AM EDT Office Visit Internal Medicine at [address] [phone] Daryn Garrett MD [facility] DR LILI WALKER [place] [address] 01/30/2025 1:30 PM EDT Laboratory Appointment Lab at [facility] Hematology Oncology [address] [place] [phone] 01/30/2025 3:[address] [place] [address] Arturo Cordero MD [facility] HEMATOLOGY [place] [address] 01/30/2025 4:15 PM EDT Office Visit Hematology and Oncology at [facility] [place] [address] Arturo Cordero MD [facility] HEMATOLOGY [place] [address] Scheduled Procedures Name Priority Associated Diagnoses Date/Ti me EGD, UPPER GI ENDOSCOPY (WRVU 2.09) Irritable bowel syndrome with constipation 08/29/2024 1:00 PM EST COLONOSCOPY, DIAGNOSTIC (WRVU 3.26) Irritable bowel syndrome with constipation 08/29/2024 1:00 PM EST documented as of this encounter Visit Diagnoses Not on filedocumented in this encounter Care Teams Conveyor Weigher Operator Relationship Specialty Start Date End Date Rodney Padilla MD PCP - General 07/18/22 04/09/24 documented as of this encounter
--- OUTSIDE RECORDS SUMMARY | 2024-08-20 15:54 | XMS_ITS | Encounter Summary ---
Author Organization [facility] Address [facility] [place] [address] Care Team Providers Care Inventory Audit Clerk Name Role Phone Daryn Garrett MD Primary Care Provider Reason for Visit * Reason Onset Date Comments Medication Refill 09/18/2022 Encounter Details Date Type Department Care Team (Late st Contact Info) Description 09/18/2022 Refill Family Medicine at [facility] [address] [place] [phone] Tamera Khan APRN [facility] DR LILI [place] [address] Social History Tobacco Use Types Packs/Day Years [...] 1:00 PM EST Hospital En[place] [phone] Roland Gooden MD [facility] [place] [address] 08/29/2024 1:00 PM EST - 08/29/2024 2:00 PM EST [place] [phone] Roland Gooden MD [facility] [place] [address] EGD, UPPER GI ENDOSCOPY (WRVU 2.09) 10/02/2024 1:00 PM EDT Office [place] [phone] Juanpablo Hernandez MD [facility] [place] [place] [address] 10/21/2024 9:30 AM EDT Office Visit Internal Medicine at [place] [address] [place] [address] Daryn Garrett MD [facility] [address] [place] [address] 01/30/2025 1:30 PM EDT Laboratory Appointment Lab at [facility] Hematology Oncology [address] [place] [phone] 01/30/2025 3:[address] [place] [phone] Arturo Cordero MD [facility] [place] [address] 01/30/2025 4:15 PM EDT Office Visit Hematology [place] [address] Arturo Cordero MD [facility] [place] [address] Scheduled Procedures Name Priority Associated Diagnoses Date/Ti me EGD, UPPER GI ENDOSCOPY (WRVU 2.09) Irritable bowel syndrome with constipation 08/29/2024 1:00 PM EST COLONOSCOPY, DIAGNOSTIC (WRVU 3.26) Irritable bowel syndrome with constipation 08/29/2024 1:00 PM EST documented as of this encounter Visit Diagnoses Not on filedocumented in this encounter Care Teams Inventory Audit Clerk Relationship Specialty Start Date End Date Daryn Garrett MD [facility] [address] [place] [address] PCP - General 04/10/24 documented as of this encounter
--- OUTSIDE RECORDS SUMMARY | 2024-08-20 15:54 | XMS_ITS | Encounter Summary ---
Author Organization [facility] Address [facility] [place] [address] Care Team Providers Care Partner Marketing Intern Name Role Phone Rodney Padilla MD Primary Care Provider Reason for Visit * Reason Onset Date Comments Medication Refill 09/25/2022 Encounter Details Date Type Department Care Team (Late st Contact Info) Description 09/25/2022 Refill Family Medicine at [facility] [address] [place] [phone] Luis E Narayan MD [facility] DR LILI W[place] [address] Social History Tobacco Use Types Packs/Day Years [...] * [facility] En[facility]/26/2022 11:41 AM EDT Prescription Renewal Request Name: Alize Gramajo : 1960 Prescription(s) Requested: Requested Prescriptions Pending Prescriptions Disp Refills ??? fluticasone propionate (Flonase) 50 mcg/actuation [place], Suspension 16 g 11 Si spray by [...] 1:00 PM EST Hospital Encounter [place] [phone] Roland Gooden MD [facility] [place] [address] 08/29/2024 1:00 PM EST - 08/29/2024 2:00 PM EST [place] [phone] Roland Gooden MD [facility] [place] [address] EGD, UPPER GI ENDOSCOPY (WRVU 2.09) 10/02/2024 1:00 PM EDT Office [place] [address] Juanpablo Hernandez MD [facility] [place] [address] 10/21/2024 9:30 AM EDT Office Visit Internal Medicine at [address] [phone] Daryn Garrett MD [facility] DR LILI WALKER - PRIMARY CARE [place], [place] [phone] 01/30/2025 1:30 PM EDT Laboratory Appointment Lab at [facility] Hematology Oncology [address] [place] [phone] 01/30/2025 3:[address] [place] [address] Arturo Cordero MD [facility] DR HEMATOLOGY [place] [address] 01/30/2025 4:15 PM EDT Office Visit Hematology [place] [address] Arturo Cordero MD [facility] DR HEMATOLOGY [place] [address] Scheduled Procedures Name Priority Associated Diagnoses Date/Ti me EGD, UPPER GI ENDOSCOPY (WRVU 2.09) Irritable bowel syndrome with constipation 08/29/2024 1:00 PM EST COLONOSCOPY, DIAGNOSTIC (WRVU 3.26) Irritable bowel syndrome with constipation 08/29/2024 1:00 PM EST documented as of this encounter Visit Diagnoses Not on filedocumented in this encounter Care Teams Partner Marketing Intern Relationship Specialty Start Date End Date Rodney Padilla MD PCP - General 07/18/22 04/09/24 documented as of this encounter
--- OUTSIDE RECORDS SUMMARY | 2024-08-20 15:54 | XMS_ITS | Encounter Summary ---
Author Organization [facility] Address [facility] [place] [address] Care Team Providers Care Flash Developer Name Role Phone Luis E Narayan MD Primary Care Provider [phone]- [phone] Encounter Details Date Type Department Care Team [...] 1:00 PM EST Hospital Encounter [place] [phone] Roland Gooden MD [facility] [place] [address] 08/29/2024 1:00 PM EST - 08/29/2024 2:00 PM EST [place] [phone] Roland Gooden MD [facility] [place] [address] EGD, UPPER GI ENDOSCOPY (WRVU 2.09) 10/02/2024 1:00 PM EDT Office [place] [phone] Juanpablo Hernandez MD [facility] [place]TH[place] [address] 10/21/2024 9:30 AM EDT Office Visit Internal Medicine at [facility] [address] [place] [phone] Daryn Garrett MD [facility] DR LILI WALKER - [place] [address] 01/30/2025 1:30 PM EDT Laboratory Appointment Lab at [facility] Hematology Oncology [address] [place] [phone] 01/30/2025 3:[address] [place] [phone] Arturo Cordero MD [facility] HEMATOLOGY [place] [address] 01/30/2025 4:15 PM EDT Office Visit Hematology [place] [phone] Arturo Cordero MD [facility] DR HEMATOLOGY [place] [address] Scheduled Procedures Name Priority Associated Diagnoses Date/Ti me EGD, UPPER GI ENDOSCOPY (WRVU 2.09) Irritable bowel syndrome with constipation 08/29/2024 1:00 PM EST COLONOSCOPY, DIAGNOSTIC (WRVU 3.26) Irritable bowel syndrome with constipation 08/29/2024 1:00 PM EST documented as of this encounter Visit Diagnoses Not on filedocumented in this encounter Care Teams Flash Developer Relationship Specialty Start Date End Date Luis E Narayan MD [facility] DR LILI WALKER-[place] [address] PCP - General Family Medicine 01/20/22 07/17/22 documented as of this encounter
--- OUTSIDE RECORDS SUMMARY | 2024-08-20 15:54 | XMS_ITS | Encounter Summary ---
Author Organization [facility] Address [facility] [place] [address] Care Team Providers Care Production Mechanic Tin Cans Name Role Phone Rodney Padilla MD Primary [...] 1:00 PM EST Hospital En[place] [address] [facility] [place] [place] [address] 08/29/2024 1:00 PM EST - 08/29/2024 2:00 PM EST [place] [phone] [facility] [place] [address] EGD, UPPER GI ENDOSCOPY (WRVU 2.09) 10/02/2024 1:00 PM EDT Office [place] [phone] [facility] [place] [address] 10/21/2024 9:30 AM EDT Office Visit Internal Medicine at [facility] [address] [place] [phone] Daryn Garrett MD [facility] DR LILI WALKER [place] [address] 01/30/2025 1:30 PM EDT Laboratory Appointment Lab at [facility] Hematology Oncology [address] [place], [place] [phone] 01/30/2025 3:[address] Scan at [place] [phone] [facility] HEMATOLOGY [place] [address] 01/30/2025 4:15 PM EDT Office Visit Hematology and Oncology at [place] [phone] [facility] DR HEMATOLOGY [place] [address] Scheduled Procedures Name Priority Associated Diagnoses Date/Ti me EGD, UPPER GI ENDOSCOPY (WRVU 2.09) Irritable bowel syndrome with constipation 08/29/2024 1:00 PM EST COLONOSCOPY, DIAGNOSTIC (WRVU 3.26) Irritable bowel syndrome with constipation 08/29/2024 1:00 PM EST documented as of this encounter Visit Diagnoses Not on filedocumented in this encounter Care Teams Production Mechanic Tin Cans Relationship Specialty Start Date End Date Rodney Padilla MD PCP - General 07/18/22 04/09/24 documented as of this encounter
--- OUTSIDE RECORDS SUMMARY | 2024-08-20 15:54 | XMS_ITS | Encounter Summary ---
[place] [address] Care Team Providers Care Clay Mixer Name Role Phone Rodney Padilla MD Primary Care Provider [phone] Reason for Referral * Diagnostic Test (Routine) - Closed Specialty Diagnoses / Procedures Referred By Contac t Referred To Contact Radiology Diagnoses Dyspepsia Nausea without vomiting Procedures NM Gastric Emptying Scan Alejandra Pop WASHCOAT WIPER [address] [place] [address] [place] [address] Referral ID Status Reason Start Date Expiration Date V isits Requested Visits Authorized [id number] Closed Specialty Service Requested 06/17/2022 12/17/2023 1 1 Reason for Visit * Diagnostic Test (Routine) - Closed Specialty Diagnoses / Procedures Referred By Contac t Referred To Contact Radiology Diagnoses Dyspepsia Nausea without vomiting Procedures NM Gastric Emptying Scan Alejandra Pop APRN [address] [place] [address] [place] [address] Referral ID Status Reason Start Date Expiration Date V isits Requested Visits Authorized [id number] Closed Specialty Service Requested 06/17/2022 12/17/2023 1 1 Encounter Details Date Type Department Care Team (Latest Contact Info) Description 10/18/2022 10:21 AM EDT Hospital Encounter Nuclear Medicine at [facility] [place] [address] Alejandra Pop, WASHCOAT WIPER [address] [place] [address] Dyspepsia; Nausea without vomiting Discharge Disposition: Home [...] 09/26/2022 09/19/2023 fluticasone propionate (Flonase) 50 mcg/actuation [place], Suspension 1 spray by Each Nare route [...] MiscIndications:Simpl e chronic bronchitis 1 each by [facility].(Non-Drug; Combo Route) route every 4 hours as [...] 1 each 12/10/2021 02/04/2023 FreeStyle Sanjana 2 [place] MiscIndications:diabe escobar mellitus 1 each by Other [...] 1:00 PM EST Hospital En[place] [phone] Roland Gooden MD [facility] [place] [address] 08/29/2024 1:00 PM EST - 08/29/2024 2:00 PM EST [place] [address] Roland Gooden MD [facility] [place] [address] EGD, UPPER GI ENDOSCOPY (WRVU 2.09) 10/02/2024 1:00 PM EDT Office [place] [phone] Juanpablo Hernandez MD [facility] [place] [address] 10/21/2024 9:30 AM EDT Office Visit Internal Medicine at [address] [phone] Daryn Garrett MD [facility] DR LILI [place] [address] 01/30/2025 1:30 PM EDT Laboratory Appointment Lab at [facility] Hematology Oncology [address] [place] [phone] 01/30/2025 3:[address] [place] [phone] Arturo Cordero MD [facility] DR [place] [address] 01/30/2025 4:15 PM EDT Office Visit Hematology [place] [phone] Arturo Cordero MD [facility] DR [place] [address] Scheduled Procedures Name Priority Associated Diagnoses Date/Ti [...] who have questions please contact the health eye care professional that requested your imaging first. ? Narrative [...] patients who have questions please contactthe health eye care professional that requested your imaging first. Alejandra Pop WASHCOAT WIPER IMG NM ORDERABLE S documented in this encounter Visit Diagnoses Diagnosis Dyspepsia Dyspepsia and other specified disorders of function of stomach Nausea without vomiting Irritable bowel syndrome with constipation Irritable bowel [...] mCi documented in this encounter Care Teams Clay Mixer Relationship Specialty Start Date End Date Rodney Padilla MD PCP - General 07/18/22 04/09/24 documented as of this encounter
--- OUTSIDE RECORDS SUMMARY | 2024-08-20 15:54 | XMS_ITS | Encounter Summary ---
Author Organization [facility] Address [facility] [place] [address] Care Team Providers Care Securities Teller Name Role Phone Luis E Narayan MD Primary Care Provider [phone] Reason for Visit * Reason Onset Date Comments Medication Refill 07/11/2022 Encounter Details Date Type Department Care Team (Late st Contact Info) Description 07/11/2022 Refill Family Medicine at [facility] [address] [place] [address] Ally Lerner APRN [facility] [place] [address] Social History Tobacco Use Types Packs/Day Years [...] 1:00 PM EST Hospital Encounter [place] [address] Roland Gooden MD [facility] [place] [place] [address] 08/29/2024 1:00 PM EST - 08/29/2024 2:00 PM EST Surgery Gastroenterology at [place] [address] Roland Gooden MD [facility] [place] [address] EGD, UPPER GI ENDOSCOPY (WRVU 2.09) 10/02/2024 1:00 PM EDT Office Visit Ophthalmology at [place] [phone] Juanpablo Hernandez MD [facility] [place] [address] 10/21/2024 9:30 AM EDT Office Visit Internal Medicine at [address] [phone] Daryn Garrett MD [facility] DR LILI [place] [address] 01/30/2025 1:30 PM EDT Laboratory Appointment Lab at [facility] Hematology Oncology [address] [place], [place] [phone] 01/30/2025 3:[address] Scan at [place] [phone] Arturo Cordero MD [facility] [place] [address] 01/30/2025 4:15 PM EDT Office Visit Hematology and Oncology at [place] [phone] Arturo Cordero MD [facility] [place] [address] Scheduled Procedures Name Priority Associated Diagnoses Date/Ti me EGD, UPPER GI ENDOSCOPY (WRVU 2.09) Irritable bowel syndrome with constipation 08/29/2024 1:00 PM EST COLONOSCOPY, DIAGNOSTIC (WRVU 3.26) Irritable bowel syndrome with constipation 08/29/2024 1:00 PM EST documented as of this encounter Visit Diagnoses Not on filedocumented in this encounter Care Teams Securities Teller Relationship Specialty Start Date End Date Luis E Narayan MD [facility] DR LILI [place] [address] PCP - General Family Medicine 01/20/22 07/17/22 documented as of this encounter
--- OUTSIDE RECORDS SUMMARY | 2024-08-20 15:54 | XMS_ITS | Encounter Summary ---
Author Organization [facility] Address [facility] [place] [address] Care Team Providers Care Sexual Assault Counsellor Name Role Phone Rodney Padilla MD [...] 1:00 PM EST Hospital Encounter [place] [address] Roland Gooden MD [facility] [place] [place] [address] 08/29/2024 1:00 PM EST - 08/29/2024 2:00 PM EST Surgery [place] [phone] Roland Gooden MD [facility] [place] [address] EGD, UPPER GI ENDOSCOPY (WRVU 2.09) 10/02/2024 1:00 PM EDT Office [place] [phone] Juanpablo Hernandez MD [facility] [place] [address] 10/21/2024 9:30 AM EDT Office Visit Internal Medicine at [facility] [address] [place] [phone] Daryn Garrett MD [facility] DR LILI WALKER - [place] [address] 01/30/2025 1:30 PM EDT Laboratory Appointment Lab at [facility] Hematology Oncology [address] [place], [place] [phone] 01/30/2025 3:[address] Scan at [place] [phone] Arturo Cordero MD [facility] HEMATOLOGY [place] [address] 01/30/2025 4:15 PM EDT Office Visit Hematology and Oncology at [place] [phone] Arturo oCrdero MD [facility] DR HEMATOLOGY [place] [address] Scheduled Procedures Name Priority Associated Diagnoses Date/Ti me EGD, UPPER GI ENDOSCOPY (WRVU 2.09) Irritable bowel syndrome with constipation 08/29/2024 1:00 PM EST COLONOSCOPY, DIAGNOSTIC (WRVU 3.26) Irritable bowel syndrome with constipation 08/29/2024 1:00 PM EST documented as of this encounter Visit Diagnoses Not on filedocumented in this encounter Care Teams Sexual Assault Counsellor Relationship Specialty Start Date End Date Rodney Padilla MD PCP - General 07/18/22 04/09/24 documented as of this encounter
--- OUTSIDE RECORDS SUMMARY | 2024-08-20 15:54 | XMS_ITS | Encounter Summary ---
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 Indications: diabetes mellitus 1 each 10/26/2021 01/23/2023 FreeStyle Sanjana 2 Sensor KitIndications:diabete s mellitus 1 each by Other route every 14 days. Indications: diabetes mellitus 2 kit 10/26/2021 01/23/2023 fluticasone propionate (Flonase) 50 mcg/actuation [place], Suspension 1 spray by Each Nare route [...] 1:00 PM EST Hospital En[place] [address] Roland Gooden MD [facility] [place] [address] 08/29/2024 1:00 PM EST - 08/29/2024 2:00 PM EST [place] [phone] Roland Gooden MD [facility] [place] [address] EGD, UPPER GI ENDOSCOPY (WRVU 2.09) 10/02/2024 1:00 PM EDT [place] [address] Juanpablo Hernandez MD [facility] [place] [address] 10/21/2024 9:30 AM EDT Office Visit Internal Medicine at [address] [place] [address] Daryn Garrett MD [facility] DR LILI [place]ER [place] [address] 01/30/2025 1:30 PM EDT Laboratory Appointment Lab at [facility] Hematology Oncology [address] [place] [phone] 01/30/2025 3:[address] [place] [place] [phone] Arturo Cordero MD [facility] DR [place] [address] 01/30/2025 4:15 PM EDT Office Visit [place] [phone] Arturo Cordero MD [facility] DR HEMATOLOGY AND ONCOLOGY [place], [place] [phone] Scheduled Procedures Name Priority Associated Diagnoses Date/Ti [...] 11:47 AM EST) Neutrophil % 68.2 % [facility] Neutrophil Absolute 6.07 1.70 - 6.10 x10(3)/[facility] LAB[facility] Lymph % 23.1 % [facility] Lymphocytes Abs 2.1 0.9 - 3.2 x10(3)/[facility] Monocyte % 6.6 % [facility] Monocyte Abs 0.6 0.3 - 0.9 x10(3)/[facility] LAB[facility] Eos % 1.3 % [facility] Eosinophils Abs 0.1 0.0 - 0.4 x10(3)/[facility] LABOR[facility]ORY Basophil % 0.4 % [facility] Baso Absolute 0.0 0.0 - 0.1 x10(3)/[facility] LABORATORY Immature Gran % 0.40 % [facility] Comment: Immature granulocytes(IG's)percentage and absolute count will include metamyelocytes, myelocytes, and promyelocytes. Blood smears from CBCs yielding IG's will be scanned manually for concordance. If this scan disagrees with the automated IG or if promyelocytes are noted, a manual differential will be performed. Immature Gran Absolute 0.04 0.00 - 0.04 x10(3)/[facility] LABORATORY Blood 06/23/2022 11:4 7 AM EST 06/23/2022 11:51 AM EST Narrative Resulting Agency Comment Spec In Lab Leandra Lopes [facility] HEMATOLOGY ORDERAB LES [facility] [place] [address] * (ABNORMAL) Hemogram (06/23/2022 11:47 AM EST) White Blood Cell 8.9 4.0 - 9.5 x10(3)/mc L [facility] Red Blood Cell 4.60 4.00 - 5.21 x10(6)/mc L [facility] Hemoglobin 12.9 11.7 - 15.5 g/dL [facility] Hematocrit 39.0 35.7 - 45.8 % [facility] Mean Cell Volume 84.8 82.6 - 94.4 fL [facility] Mean Cell Hemoglobin 28.0 27.1 - 32.0 pg [facility] Mean Cell Hemoglobin Concentration 33.1 31.7 - 35.0 g/dL [facility] Platelet 368(H) 145 - 357 x10(3)/mc L [facility] RDW Standard Deviation 43.6 37.0 - 46.0 fL [facility] RDW coefficient of variation 14.0 11.5 - 14.1 % [facility] Mean Platelet Volume 9.0 7.6 - 12.9 fL [facility] NRBC% auto 0.0 % [facility] NRBC Absolute 0.000 0.000 - 0.000 x10(3)/mc L [facility] Blood 06/23/2022 11:4 7 AM EST 06/23/2022 11:51 AM EST Narrative Resulting Agency Comment Spec In Lab Leandra Lopes [facility] HEMATOLOGY ORDERAB LES Performing Organization Address City/State/[facility] Co de Phone Number [facility] [place] [address] * (ABNORMAL) Comprehensive metabolic panel (non-fasting) (06/23/2022 11:47 AM EST) Glucose 274(H) 65 - 199 mg/dL [facility] Comment:Diabetes: >=200 mg/d L plus symptoms Blood Urea Nitrogen 12 8 - 18 mg/dL [facility] Creatinine 0.92 0.70 - 1.20 mg/dL [facility] Sodium 139 135 - 145 mmol/L [facility] Potassium 4.1 3.5 - 5.0 mmol/L [facility] Comment: Please note: ??Patients with WBC >100,000 may have falsely elevated Potassium levels. ??For accurate Potassium quantification in these patients send serum separator tube (gold top) for subsequent determinations. ??Contact the Clinical Chemistry Laboratory if there are any questions. Chloride 104 98 - 107 mmol/L [facility] Carbon Dioxide 25 22 - 31 mmol/L [facility] Anion Gap 10 5 - 15 mmol/L [facility] Calcium 9.6 8.5 - 10.5 mg/dL [facility] Protein, Total 7.0 6.1 - 8.0 g/dL [facility] Albumin 4.2 3.2 - 5.2 g/dL [facility] Aspartate Aminotransferase 16 0 - 30 unit/L [facility] Alanine Aminotransferase 27 0 - 30 unit/L [facility] Alkaline Phosphatase 113(H) 35 - 105 unit/L [facility] Bilirubin, Total 0.5 0.2 - 1.3 mg/dL [facility] Est Glomerular Filtration Rate 70 >=60 mL/min/1. 73 m?? [facility] Comment: This patient's estimated [...] Agency Comment Spec In Lab Leandra Lopes [facility] CHEMISTRY ORDERABL ES [facility] [place] [address] documented in this encounter Visit Diagnoses Diagnosis Ocular melanoma, left Irritable bowel syndrome with constipation Irritable bowel syndrome documented in this encounter Care Teams Road Maker Relationship Specialty Start Date End Date Luis E Narayan MD [facility] DR LILI W[place] [address] PCP - General Family Medicine 01/20/22 07/17/22 documented as of this encounter
--- OUTSIDE RECORDS SUMMARY | 2024-08-20 15:55 | XMS_ITS | Encounter Summary ---
Author Organization [facility] Address [facility] [place] [address] Care Team Providers Care Lawn And Tree Service Spray Supervisor Name Role Phone Luis E Narayan MD Primary Care Provider [phone]- [phone] Reason for Visit * Reason Onset Date Comments Medication Refill 04/21/2022 Encounter Details Date Type Department Care Team (Late st Contact Info) Description 04/21/2022 Refill Family Medicine at [facility] [address] [place] [address] Suzanne Martinez, KATHIA [facility] DR LILI [place] [address] Social History Tobacco Use Types Packs/Day Years [...] (Latest Contact Info) Description 08/29/2024 1:00 PM [facility] Hospital Encounter [place] [address] Roland Gooden MD [facility] [place] [address] 08/29/2024 1:00 PM EST - 08/29/2024 2:00 PM EST Surgery Gastroenterology at [place] [phone] Roland Gooden MD [facility] [place] [address] EGD, UPPER GI ENDOSCOPY (WRVU 2.09) 10/02/2024 1:00 PM EDT Office Visit Ophthalmology at [place] [phone] Juanpablo Hernandez MD [facility] [place] [address] 10/21/2024 9:30 AM EDT Office Visit Internal Medicine at [address] [phone] Daryn Garrett MD [facility] DR [place] [address] 01/30/2025 1:30 PM EDT Laboratory Appointment Lab at [facility] Hematology Oncology [address] [place], [place] [phone] 01/30/2025 3:[address] [place] [phone] Arturo Cordero MD [facility] [place] [address] 01/30/2025 4:15 PM EDT Office Visit Hematology [place] [phone] Arturo Cordero MD [facility] [place] [address] Scheduled Procedures Name Priority Associated Diagnoses Date/Ti me EGD, UPPER GI ENDOSCOPY (WRVU 2.09) Irritable bowel syndrome with constipation 08/29/2024 1:00 PM EST COLONOSCOPY, DIAGNOSTIC (WRVU 3.26) Irritable bowel syndrome with constipation 08/29/2024 1:00 PM EST documented as of this encounter Visit Diagnoses Not on filedocumented in this encounter Care Teams Lawn And Tree Service Spray Supervisor Relationship Specialty Start Date End Date Luis E Narayan MD [facility] [address] [place] [address] PCP - General Family Medicine 01/20/22 07/17/22 documented as of this encounter
--- OUTSIDE RECORDS SUMMARY | 2024-08-20 15:55 | XMS_ITS | Encounter Summary ---
Author Organization [facility] Address [facility] [place] [address] Care Team Providers Care Tours Captain Name Role Phone Luis E Narayan MD Primary Care Provider Encounter Details Date Type Department Care Team (Late st Contact Info) Description 05/13/2022 Orders Only [place]ology [place] [address] Tito Matta V, [facility] Hematology/[place] [address] Ocular melanoma, left; Renal cell cancer, left [...] 1:00 PM EST Hospital Encounter Gastroenterology at [place] [phone] Roland Gooden MD [facility] [place] [address] 08/29/2024 1:00 PM EST - 08/29/2024 2:00 PM EST [place] [phone] Roland Gooden MD [facility] [place] [address] EGD, UPPER GI ENDOSCOPY (WRVU 2.09) 10/02/2024 1:00 PM EDT Office Visit Ophthalmology at [place] [phone] Juanpablo Hernandez MD [facility] [place] [address] 10/21/2024 9:30 AM EDT Office Visit Internal Medicine at [facility] [address] [place] [address] Daryn Garrett MD [facility] DR LILI [place] [address] 01/30/2025 1:30 PM EDT Laboratory Appointment Lab at [facility] Hematology Oncology [address] [place] [phone] 01/30/2025 3:[address] [place] [phone] Arturo Cordero MD [facility] [place] [address] 01/30/2025 4:15 PM EDT Office Visit [place]ology [place] [phone] Arturo Cordero MD [facility] [place] [address] Scheduled Procedures Name Priority Associated Diagnoses Date/Ti me EGD, UPPER GI ENDOSCOPY (WRVU 2.09) Irritable bowel syndrome with constipation 08/29/2024 1:00 PM EST COLONOSCOPY, DIAGNOSTIC (WRVU 3.26) Irritable bowel syndrome with constipation 08/29/2024 1:00 PM EST documented as of this encounter Results * Research Venipuncture (05/13/2022 1:05 PM EDT) [facility] Signature Research Venipuncture Drawn [facility] Comment: Collection date/time has been modified to: 13:05:00. ??Previous collection date/time: 13:08:00. Corrected from Drawn [NA] on 05/13/22 13:36:44 EDT by Cyndi Dowd Blood 05/13/2022 1:05 PM EDT 05/13/2022 1:25 PM EDT Narrative Resulting Agency Comment Spec In Lab Dar Fernandez MD CHEMISTRY ORDERABLES [facility] [place] [address] documented in this encounter Visit Diagnoses Diagnosis Ocular melanoma, left Renal cell cancer, left Irritable bowel syndrome with constipation Irritable bowel syndrome documented in this encounter Care Teams Tours Captain Relationship Specialty Start Date End Date Luis E Narayan MD [facility] DR LILI [place] [address] PCP - General Family Medicine 01/20/22 07/17/22 documented as of this encounter
--- OUTSIDE RECORDS SUMMARY | 2024-08-20 15:55 | XMS_ITS | Encounter Summary ---
Author Organization [facility] Address [facility] [address] Care Team Providers Care Building Cleaning Supervisor Name Role Phone Luis E Narayan MD Primary Care Provider +1- [phone] Reason for Visit * Reason Onset Date Comments Medication Refill 04/26/2022 Encounter Details Date Type Department Care Team (Late st Contact Info) Description 04/26/2022 Refill Family Medicine at [facility] [address] [place] [address] Luis E Narayan MD [facility] DR LILI [place] [address] Social History Tobacco Use Types Packs/Day Years [...] (Latest Contact Info) Description 08/29/2024 1:00 PM [facility] Hospital En[place] [phone] Roland Gooden MD [facility] [place] [address] 08/29/2024 1:00 PM EST - 08/29/2024 2:00 PM EST Surgery Gastroenterology at [address] Roland Gooden MD [facility] [place] [address] EGD, UPPER GI ENDOSCOPY (WRVU 2.09) 10/02/2024 1:00 PM EDT Office Visit Ophthalmology at [place] [phone] Juanpablo Hernandez MD [facility] [place] [address] 10/21/2024 9:30 AM EDT Office Visit Internal Medicine at [address] [phone] Daryn Garrett MD [facility] [place] [place] [address] 01/30/2025 1:30 PM EDT Laboratory Appointment Lab at [facility] Hematology Oncology [address] [place], [place] [phone] 01/30/2025 3:[address] Scan at [place] [phone] Arturo Cordero MD [facility] [place] [address] 01/30/2025 4:15 PM EDT Office Visit Hematology and Oncology at [place] [phone] Arturo Cordero MD [facility] [address] [place] [address] Scheduled Procedures Name Priority Associated Diagnoses Date/Ti me EGD, UPPER GI ENDOSCOPY (WRVU 2.09) Irritable bowel syndrome with constipation 08/29/2024 1:00 PM EST COLONOSCOPY, DIAGNOSTIC (WRVU 3.26) Irritable bowel syndrome with constipation 08/29/2024 1:00 PM EST documented as of this encounter Visit Diagnoses Not on filedocumented in this encounter Care Teams Building Cleaning Supervisor Relationship Specialty Start Date End Date Luis E Narayan MD [facility] DR LILI [place] [address] PCP - General Family Medicine 01/20/22 07/17/22 documented as of this encounter
--- OUTSIDE RECORDS SUMMARY | 2024-08-20 15:55 | XMS_ITS | Encounter Summary ---
Author Organization [facility] [place] [address] Care Team Providers Care Office Helper Clerical Name Role Phone Luis E Narayan MD Primary Care Provider +1- [phone] Reason for Visit * Reason Onset Date Comments Appointment 04/19/2022 Encounter Details Date Type Department Care Team (Late st Contact Info) Description 04/19/2022 Telephone Internal Medicine at [facility] [address] [place] [phone] Cara Thomas, RN Appointment Social History Tobacco [...] 1:00 PM EST Hospital Encounter [place] [address] Roland Gooden MD [facility] [place] [address] 08/29/2024 1:00 PM EST - 08/29/2024 2:00 PM EST Surgery Gastroenterology at [place] [phone] Roland Gooden MD [facility] [place] [address] EGD, UPPER GI ENDOSCOPY (WRVU 2.09) 10/02/2024 1:00 PM EDT Office Visit Ophthalmology at [place] [phone] Juanpablo Hernandez MD [facility] [place] [address] 10/21/2024 9:30 AM EDT Office Visit Internal Medicine at [address] [phone] Daryn Garrett MD [facility] DR LILI [place] [address] 01/30/2025 1:30 PM EDT Laboratory Appointment Lab at [facility] Hematology Oncology [address] [place], [place] [phone] 01/30/2025 3:[address] Scan at [place] [phone] Arturo Cordero MD [facility] H[place]AT[place] [address] 01/30/2025 4:15 PM EDT Office Visit Hematology [place] [phone] Arturo Cordero MD [facility] [place]AT[place] [address] Scheduled Procedures Name Priority Associated Diagnoses Date/Ti me EGD, UPPER GI ENDOSCOPY (WRVU 2.09) Irritable bowel syndrome with constipation 08/29/2024 1:00 PM EST COLONOSCOPY, DIAGNOSTIC (WRVU 3.26) Irritable bowel syndrome with constipation 08/29/2024 1:00 PM EST documented as of this encounter Visit Diagnoses Not on filedocumented in this encounter Care Teams Office Helper Clerical Relationship Specialty Start Date End Date Luis E Narayan MD [facility] [address] [place] [address] PCP - General Family Medicine 01/20/22 07/17/22 documented as of this encounter
--- OUTSIDE RECORDS SUMMARY | 2024-08-20 15:55 | XMS_ITS | Encounter Summary ---
Author Organization [facility] Address [facility] [place] [address] Care Team Providers Care Heating And Blending Supervisor Name Role Phone Luis E Narayan MD Primary Care Provider +1- [phone] Reason for Visit * Reason Onset Date Comments Medication Refill 06/19/2022 Encounter Details Date Type Department Care Team (Late st Contact Info) Description 06/19/2022 Refill Family Medicine at [facility] [address] [place] [address] Luis E Narayan MD [facility] DR LILI [place] [address] Mixed hyperlipidemia Social History Tobacco Use Types [...] 1:00 PM EST Hospital En[place] [phone] Roland Gooden MD [facility] [place] [address] 08/29/2024 1:00 PM EST - 08/29/2024 2:00 PM EST Surgery Gastroenterology at [place] [phone] Roland Gooden MD [facility] [place] [address] EGD, UPPER GI ENDOSCOPY (WRVU 2.09) 10/02/2024 1:00 PM EDT Office Visit Ophthalmology at [place] [phone] Juanpablo Hernandez MD [facility] [place] [address] 10/21/2024 9:30 AM EDT Office Visit Internal Medicine at [address] [phone] Daryn Garrett MD [facility] DR LILI WALKER [place] [address] 01/30/2025 1:30 PM EDT Laboratory Appointment Lab at [facility] Hematology Oncology [address] [place], [place] [phone] 01/30/2025 3:[address] Scan at [place] [phone] Arturo Cordero MD [facility] [place] [address] 01/30/2025 4:15 PM EDT Office Visit Hematology and Oncology at [place] [phone] Arturo Cordero MD [facility] HEMATOLOGY [place] [address] Scheduled Procedures Name Priority Associated Diagnoses Date/Ti me EGD, UPPER GI ENDOSCOPY (WRVU 2.09) Irritable bowel syndrome with constipation 08/29/2024 1:00 PM EST COLONOSCOPY, DIAGNOSTIC (WRVU 3.26) Irritable bowel syndrome with constipation 08/29/2024 1:00 PM EST documented as of this encounter Visit Diagnoses Diagnosis Mixed hyperlipidemia Irritable bowel syndrome with constipation Irritable bowel syndrome documented in this encounter Care Teams Heating And Blending Supervisor Relationship Specialty Start Date End Date Luis E Narayan MD [facility] DR LILI [place] [address] PCP - General Family Medicine 01/20/22 07/17/22 documented as of this encounter
--- OUTSIDE RECORDS SUMMARY | 2024-08-20 15:55 | XMS_ITS | Encounter Summary ---
[place] [address] Care Team Providers Care Quill Reamer Name Role Phone Luis E Narayan MD Primary Care Provider +1- [phone] Encounter Details Date Type Department Care Team (Late st Contact Info) Description 05/07/2022 Telephone Hematology [place] [phone] Dar Fernandez MD Social History Tobacco Use Types Packs/Day [...] scheduled for next week. Dar Fernandez MD structural welder in Hematology-Oncology documented in this encounter Plan of Treatment Upcoming Encounters Date Type Department Care Team (Latest Contact Info) Description 08/29/2024 1:00 PM EST Hospital Encounter [place] [address] Roland Gooden MD [facility] [place] [address] 08/29/2024 1:00 PM EST - 08/29/2024 2:00 PM EST Surgery [place] [phone] Roland Gooden MD [facility] [place] [address] EGD, UPPER GI ENDOSCOPY (WRVU 2.09) 10/02/2024 1:00 PM EDT Office Visit Ophthalmology at [place] [phone] Juanpablo Hernandez MD [facility] [place] [address] 10/21/2024 9:30 AM EDT Office Visit Internal Medicine at [address] [place] [phone] Daryn Garrett MD [facility] DR LILI WALKER - PRIMARY CARE [place] [phone] 01/30/2025 1:30 PM EDT Laboratory Appointment Lab at [facility] Hematology Oncology [address] [place], [place] [phone] 01/30/2025 3:[address] Scan at [place] [phone] Arturo Cordero MD [facility] DR [place] [address] 01/30/2025 4:15 PM EDT Office Visit Hematology and Oncology at [place] [phone] Arturo Cordero MD [facility] [address] [place] [address] Scheduled Procedures Name Priority Associated Diagnoses Date/Ti me EGD, UPPER GI ENDOSCOPY (WRVU 2.09) Irritable bowel syndrome with constipation 08/29/2024 1:00 PM EST COLONOSCOPY, DIAGNOSTIC (WRVU 3.26) Irritable bowel syndrome with constipation 08/29/2024 1:00 PM EST documented as of this encounter Visit Diagnoses Not on filedocumented in this encounter Care Teams Quill Reamer Relationship Specialty Start Date End Date Luis E Narayan MD [facility] DR LILI [place] [address] PCP - General Family Medicine 01/20/22 07/17/22 documented as of this encounter
--- OUTSIDE RECORDS SUMMARY | 2024-08-20 15:55 | XMS_ITS | Encounter Summary ---
Author Organization [facility] Address [facility] [place] [address] Care Team Providers Care Surveyor Mine Name Role Phone Daryn Garrett MD Primary Care Provider Reason for Visit * Reason Onset Date Comments Medication Refill 06/20/2022 Encounter Details Date Type Department Care Team (Late st Contact Info) Description 06/20/2022 Refill Family Medicine at [facility] [address] [place] [address] Luis E Narayan MD [facility] DR LILI WALK[place] [address] COPD Social History Tobacco Use Types Packs/Day [...] 1:00 PM EST Hospital Encounter Gastroenterology at [place] [phone] [facility] [place] [address] 08/29/2024 1:00 PM EST - 08/29/2024 2:00 PM EST Surgery Gastroenterology at [place] [phone] [facility] [place] [address] EGD, UPPER GI ENDOSCOPY (WRVU 2.09) 10/02/2024 1:00 PM EDT Office Visit Ophthalmology at [place] [phone] [facility] [place] [address] 10/21/2024 9:30 AM EDT Office Visit Internal Medicine at [address] [phone] [facility] DR LILI [place] [address] 01/30/2025 1:30 PM EDT Laboratory Appointment Lab at [facility] Hematology Oncology [address] [place] [phone] 01/30/2025 3:[address] Scan at [place] [phone] [facility] HEMATOLOGY [place] [address] 01/30/2025 4:15 PM EDT Office Visit Hematology [place] [address] [facility] HEMATOLOGY [place] [address] Scheduled Procedures Name Priority Associated Diagnoses Date/Ti me EGD, UPPER GI ENDOSCOPY (WRVU 2.09) Irritable bowel syndrome with constipation 08/29/2024 1:00 PM EST COLONOSCOPY, DIAGNOSTIC (WRVU 3.26) Irritable bowel syndrome with constipation 08/29/2024 1:00 PM EST documented as of this encounter Visit Diagnoses Diagnosis COPD Simple chronic bronchitis Irritable bowel syndrome with constipation Irritable bowel syndrome documented in this encounter Care Teams Surveyor Mine Relationship Specialty Start Date End Date Daryn Garrett MD [facility] DR LILI [place] [address] PCP - General 04/10/24 documented as of this encounter
--- OUTSIDE RECORDS SUMMARY | 2024-08-20 15:55 | XMS_ITS | Encounter Summary ---
Author Organization [facility] Address [facility] [place] [address] Care Team Providers Care Die Casting Machine Setter Name Role Phone Luis E Narayan MD Primary Care Provider +1- [phone] Encounter Details Date Type Department Care Team (Late st Contact Info) Description 06/21/2022 Orders Only Hematology [place] [address] Leandra Lopes, MASTER STEAM YACHT [facility] [place] [address] Ocular melanoma, left Social History Tobacco Use [...] 1:00 PM EST Hospital Encounter [place] [phone] Roland Gooden MD [facility] [place] [address] 08/29/2024 1:00 PM EST - 08/29/2024 2:00 PM EST Surgery [place] [phone] Roland Gooden MD [facility] [place] [address] EGD, UPPER GI ENDOSCOPY (WRVU 2.09) 10/02/2024 1:00 PM EDT Office [place] [phone] Juanpablo Hernandez MD [facility] [place] [address] 10/21/2024 9:30 AM EDT Office Visit Internal Medicine at [facility] [address] [place] [phone] Daryn Garrett MD [facility] DR LILI [place] [address] 01/30/2025 1:30 PM EDT Laboratory Appointment Lab at [facility] Hematology Oncology [address] [place] [address] 01/30/2025 3:[address] [place] [phone] Arturo Cordero MD [facility] [place] [address] 01/30/2025 4:15 PM EDT Office Visit Hematology [place] [phone] Arturo Cordero MD [facility] DR [place] [address] Scheduled Procedures Name Priority Associated Diagnoses Date/Ti me EGD, UPPER GI ENDOSCOPY (WRVU 2.09) Irritable bowel syndrome with constipation 08/29/2024 1:00 PM EST COLONOSCOPY, DIAGNOSTIC (WRVU 3.26) Irritable bowel syndrome with constipation 08/29/2024 1:00 PM EST documented as of this encounter Results * (ABNORMAL) Comprehensive metabolic panel (non-fasting) (06/23/2022 11:47 AM EST) Glucose 274(H) 65 - 199 mg/dL [facility] Comment:Diabetes: >=200 mg/d L plus symptoms Blood Urea Nitrogen 12 8 - 18 mg/dL [facility] Creatinine 0.92 0.70 - 1.20 mg/dL [facility] Sodium 139 135 - 145 mmol/L [facility] Potassium 4.1 3.5 - 5.0 mmol/L [facility] Comment: Please note: ??Patients with WBC >100,000 may have falsely elevated Potassium levels. ??For accurate Potassium quantification in these patients send serum separator tube (gold top) for subsequent determinations. ??Contact the Clinical Chemistry Laboratory if there are any questions. Chloride 104 98 - 107 mmol/L [facility] Carbon Dioxide 25 22 - 31 mmol/L [facility] Anion Gap 10 5 - 15 mmol/L [facility] Calcium 9.6 8.5 - 10.5 mg/dL [facility] Protein, Total 7.0 6.1 - 8.0 g/dL [facility] Albumin 4.2 3.2 - 5.2 g/dL [facility] Aspartate Aminotransferase 16 0 - 30 unit/L [facility] Alanine Aminotransferase 27 0 - 30 unit/L [facility] Alkaline Phosphatase 113(H) 35 - 105 unit/L [facility] Bilirubin, Total 0.5 0.2 - 1.3 mg/dL [facility] Est Glomerular Filtration Rate 70 >=60 mL/min/1. 73 m?? [facility] Comment: This patient's estimated GFR [...] Lab Leandra Lopes APRN CHEMISTRY ORDERABL ES [facility] [place] [address] documented in this encounter Visit Diagnoses Diagnosis Ocular melanoma, left Irritable bowel syndrome with constipation Irritable bowel syndrome documented in this encounter Care Teams Die Casting Machine Setter Relationship Specialty Start Date End Date Luis E Narayan MD [facility] [place] [address] PCP - General Family Medicine 01/20/22 07/17/22 documented as of this encounter
--- OUTSIDE RECORDS SUMMARY | 2024-08-20 15:55 | XMS_ITS | Encounter Summary ---
Author Organization [facility] [place] [address] Care Team Providers Care Professional Volleyball Player Name Role Phone Luis E Narayan MD Primary Care Provider +1- [phone] Encounter Details Date Type Department Care Team (Late st Contact Info) Description 05/13/2022 Orders [place] [address] Alejandra Pop, SLD TEACHER [address] [place] [place] [address] Social History Tobacco Use Types Packs/Day Years [...] EST Hospital Encounter Gastroenterology at [place] [phone] Roland Gooden MD [facility] [place] [address] 08/29/2024 1:00 PM EST - 08/29/2024 2:00 PM EST Surgery Gastroenterology at [place] [phone] Roland Gooden MD [facility] [place] [address] EGD, UPPER GI ENDOSCOPY (WRVU 2.09) 10/02/2024 1:00 PM EDT Office Visit Ophthalmology at [place] [phone] Juanpablo Hernandez MD [facility] OPHTHALMOLOGY [place] [phone] 10/21/2024 9:30 AM EDT Office Visit Internal Medicine at [facility] [address] [place] [address] Daryn Garrett MD [facility] DR LILI [place]EVEDO [place] [address] 01/30/2025 1:30 PM EDT Laboratory Appointment Lab at [facility] Hematology Oncology [address] [place] [phone] 01/30/2025 3:[address] [place] [place] [phone] Arturo Cordero MD [facility] DR HEMATOLOGY [place] [address] 01/30/2025 4:15 PM EDT Office Visit [place]ology [place] [address] Arturo Cordero MD [facility] DR HEMATOLOGY [place] [address] Scheduled Procedures Name Priority Associated Diagnoses Date/Ti me EGD, UPPER GI ENDOSCOPY (WRVU 2.09) Irritable bowel syndrome with constipation 08/29/2024 1:00 PM EST COLONOSCOPY, DIAGNOSTIC (WRVU 3.26) Irritable bowel syndrome with constipation 08/29/2024 1:00 PM EST documented as of this encounter Visit Diagnoses Not on filedocumented in this encounter Care Teams Professional Volleyball Player Relationship Specialty Start Date End Date Luis E Narayan MD [facility] DR LILI AZEVED[place] [address] PCP - General Family Medicine 01/20/22 07/17/22 documented as of this encounter
--- OUTSIDE RECORDS SUMMARY | 2024-08-20 15:55 | XMS_ITS | Encounter Summary ---
[place] [address] Care Team Providers Care Director Of Content Marketing Name Role Phone Luis E Narayan MD Primary Care Provider +1- [phone] Reason for Referral * Diagnostic Test (Routine) - Closed Specialty Diagnoses / Procedures Referred By Gonzalez kumari Referred To Contact Radiology Diagnoses Dyspepsia Nausea without vomiting Procedures NM Gastric Emptying Scan Alejandra Pop APRN [address] [address] [place] [address] Referral ID Status Reason Start Date Expiration Date V isits Requested Visits Authorized [id number] Closed Specialty Service Requested 06/17/2022 12/17/2023 1 1 Encounter Details Date Type Department Care Team (Late st Contact Info) Description 06/17/2022 Orders Only [place] [address] Alejandra Pop APRN [address] [place] [address] Dyspepsia; Nausea without vomiting Social [...] 1:00 PM EST Hospital Encounter [place] [address] Roland Gooden MD [facility] [place] [address] 08/29/2024 1:00 PM EST - 08/29/2024 2:00 PM EST Surgery Gastroenterology at [address]1000 Roland Gooden MD [facility] [place] [address] EGD, UPPER GI ENDOSCOPY (WRVU 2.09) 10/02/2024 1:00 PM EDT Office Visit Ophthalmology at [place] [phone] Juanpablo Hernandez MD [facility] [place] [address] 10/21/2024 9:30 AM EDT Office Visit Internal Medicine at [address] [phone] Daryn Garrett MD [facility] DR LILI [place] [address] 01/30/2025 1:30 PM EDT Laboratory Appointment Lab at [facility] Hematology Oncology [address] [place], [place] [phone] 01/30/2025 3:[address] Scan at [place] [phone] Arturo Cordero MD [facility] HEMATOLOGY [place] [address] 01/30/2025 4:15 PM EDT Office Visit Hematology and Oncology at [place] [phone] Arturo Cordero MD [facility] [place] [address] Scheduled Procedures Name Priority Associated Diagnoses Date/Ti [...] please contact the health child care center administrator that requested your imaging first. ? Narrative [...] questions please contactthe health child care center administrator that requested your imaging first. Alejandra Pop THERMOSTAT MACHINE TENDER IMG NM ORDERABLE S documented in this encounter Visit Diagnoses Diagnosis Dyspepsia Dyspepsia and other specified disorders of function of stomach Nausea without vomiting Dyspepsia Dyspepsia and other specified disorders of function of stomach Nausea without vomiting Irritable bowel syndrome with constipation Irritable bowel syndrome documented in this encounter Care Teams Director Of Content Marketing Relationship Specialty Start Date End Date Luis E Narayan MD [facility] [place] [address] PCP - General Family Medicine 01/20/22 07/17/22 documented as of this encounter
--- OUTSIDE RECORDS SUMMARY | 2024-08-20 15:55 | XMS_ITS | Encounter Summary ---
Author Organization [facility] Address [facility] [place] [address] Care Team Providers Care Lathmaker Name Role Phone Luis E Narayan MD Primary Care Provider +1 [phone] Encounter Details Date Type Department Care Team [...] 1:00 PM EST Hospital Encounter [place] [phone] Roland Gooden MD [facility] [place] [address] 08/29/2024 1:00 PM EST - 08/29/2024 2:00 PM EST [place] [phone] Roland Gooden MD [facility] [place] [address] EGD, UPPER GI ENDOSCOPY (WRVU 2.09) 10/02/2024 1:00 PM EDT Office [place] [phone] Juanpablo Hernandez MD [facility] [place] [address] 10/21/2024 9:30 AM EDT Office Visit Internal Medicine at [facility] [address] [place] [phone] Daryn Garrett MD [facility] DR LILI [place] [address] 01/30/2025 1:30 PM EDT Laboratory Appointment Lab at [facility] Hematology Oncology [address] [place] [phone] 01/30/2025 3:[address] [place] [phone] Arturo Cordero MD [facility] [place] [address] 01/30/2025 4:15 PM EDT Office Visit Hematology [place] [phone] Arturo Cordero MD [facility] DR [place] [address] Scheduled Procedures Name Priority Associated Diagnoses Date/Ti me EGD, UPPER GI ENDOSCOPY (WRVU 2.09) Irritable bowel syndrome with constipation 08/29/2024 1:00 PM EST COLONOSCOPY, DIAGNOSTIC (WRVU 3.26) Irritable bowel syndrome with constipation 08/29/2024 1:00 PM EST documented as of this encounter Visit Diagnoses Not on filedocumented in this encounter Care Teams Lathmaker Relationship Specialty Start Date End Date Luis E Narayan MD [facility] DR LILI [place] [address] PCP - General Family Medicine 01/20/22 07/17/22 documented as of this encounter
--- OUTSIDE RECORDS SUMMARY | 2024-08-20 15:55 | XMS_ITS | Encounter Summary ---
Author Organization [facility] Address [facility] [place] [address] Care Team Providers Care Blind Aide Name Role Phone Luis E Narayan MD Primary Care Provider +1 [phone] Encounter Details Date Type Department Care Team [...] 1:00 PM EST Hospital Encounter [place] [phone] Roland Gooden MD [facility] [place] [address] 08/29/2024 1:00 PM EST - 08/29/2024 2:00 PM EST Surgery [place] [phone] Roland Gooden MD [facility] [place] [address] EGD, UPPER GI ENDOSCOPY (WRVU 2.09) 10/02/2024 1:00 PM EDT Office [place] [phone] Juanpablo Hernandez MD [facility] [place] [address] 10/21/2024 9:30 AM EDT Office Visit Internal Medicine at [facility] [address] [place] [phone] Daryn Garrett MD [facility] DR LILI [place] [address] 01/30/2025 1:30 PM EDT Laboratory Appointment Lab at [facility] Hematology Oncology [address] [place] [phone] 01/30/2025 3:[address] [place] [phone] Arturo Cordero MD [facility] [place] [address] 01/30/2025 4:15 PM EDT Office Visit Hematology [place] [phone] Arturo Cordero MD [facility] DR [place] [address] Scheduled Procedures Name Priority Associated Diagnoses Date/Ti me EGD, UPPER GI ENDOSCOPY (WRVU 2.09) Irritable bowel syndrome with constipation 08/29/2024 1:00 PM EST COLONOSCOPY, DIAGNOSTIC (WRVU 3.26) Irritable bowel syndrome with constipation 08/29/2024 1:00 PM EST documented as of this encounter Visit Diagnoses Not on filedocumented in this encounter Care Teams Blind Aide Relationship Specialty Start Date End Date Luis E Narayan MD [facility] DR LILI [place] [address] PCP - General Family Medicine 01/20/22 07/17/22 documented as of this encounter
--- OUTSIDE RECORDS SUMMARY | 2024-08-20 15:55 | XMS_ITS | Encounter Summary ---
Author Organization [facility] [place] [address] Care Team Providers Care Conductor/Brakeman Name Role Phone Luis E Narayan MD Primary Care Provider +1- [phone] Reason for Visit * Reason Comments Genetic Evaluation * Consultation (Routine) - Closed Specialty Diagnoses / Procedures Referred By Gonzalez kumari Referred To Contact Hematology and Oncology Diagnoses History of malignant melanoma of eye Alonso Young MD [facility] DR [place] [address] [facility] Hem Onc [address] [place] [address] Referral ID Status Reason Start Date Expiration Date V isits Requested Visits Authorized [id number] Closed Consult, Test & Treat 02/14/2022 02/14/2023 1 1 Encounter Details Date Type Department Care Team (Late st Contact Info) Description 05/13/2022 12:00 PM EDT Office Visit Hematology [place] [phone] Tiot Matta V [facility] Hematology/[place] [address] Malignant melanoma of conjunctiva, left; [...] LGC - 05/13/2022 12:00 PM EDT Alize Chelsea Avila was seen by SONJA Cronin in consultation [...] who was initially diagnosed with kidney cancer [id number] and 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 In 03/2020 Alize met with her lathe set up operator and was noted to have a pigmented [...] Aunt Unknown primary Maternal ethnic background is [place]. Paternal ethnic background is [place]. There is no known Ashkenazi Religion ancestry. Genetic risk assessment Based on personal [...] as well as other findings such as ICE CUTTER and ocular hemangioblastomas, paragangliomas/pheochromocytomas, pancreatic neuroendocrine tumors, [...] gene alteration. Alize opted for testing with [employer] Renal/Urinary Tract Cancers Panel, a next generation sequencing panel that simultaneously analyzes 25 genes, including BAP1 and VHL, that contribute to increased risk for cancer. Testing will reflex to [employer] Multi-Cancer Panel, an 84 gene panel (including the genes on the Renal/Urinary Tract Cancers Panel). Alize was consented. Her blood sample was drawn and sent to [facility]. We reviewed [employer] billing policy. Alize will be notified by text and/or email regarding her estimated out of pocket cost for testing once [facility] completes their benefits investigation. At thattime, if Alize is concerned about the estimated test cost she will have the option to contact [employer] directly and either apply for [employer]'s patient assistance program to try and reduce cost of testing based on income information, cancel testing, or switch to a self-pay option of $250. If Alize does not respond to [employer], testing will be billed to her insurance [...] EST Hospital Encounter Gastroenterology at [place] [phone] Roland Gooden MD [facility] [place] [address] 08/29/2024 1:00 PM EST - 08/29/2024 2:00 PM EST [place] [phone] Roland Gooden MD [facility] [place] [address] EGD, UPPER GI ENDOSCOPY (WRVU 2.09) 10/02/2024 1:00 PM EDT Office Visit Ophthalmology at [place] [phone] Juanpablo Hernandez MD [facility] [place] [address] 10/21/2024 9:30 AM EDT Office Visit Internal Medicine at [address] [phone] Daryn Garrett MD [facility] DR LILI [place] [address] 01/30/2025 1:30 PM EDT Laboratory Appointment Lab at [facility] Hematology Oncology [address] [place] [phone] 01/30/2025 3:[address] [place] [phone] Arturo Cordero MD [facility] [place] [address] 01/30/2025 4:15 PM EDT Office Visit Hematology [place] [address] Arturo Cordero MD [facility] [place] [address] Scheduled Procedures Name Priority Associated Diagnoses Date/Ti [...] Family history of malignant neoplasm of kidney Irritable bowel syndrome with constipation Irritable bowel syndrome documented in this encounter Care Teams Conductor/Brakeman Relationship Specialty Start Date End Date Luis E Narayan MD [facility] [address] [place] [address] PCP - General Family Medicine 01/20/22 07/17/22 documented as of this encounter
--- OUTSIDE RECORDS SUMMARY | 2024-08-20 15:55 | XMS_ITS | Encounter Summary ---
Author Organization [facility] [place] [address] Care Team Providers Care Birdcage Assembler Name Role Phone Luis E Narayan MD Primary Care Provider +1- [phone] Reason for Visit * Reason Onset Date Comments Results 05/30/2022 Encounter Details Date Type Department Care Team (Late st Contact Info) Description 05/30/2022 Telephone Hematology [place] [address] Tito Matta V [facility] Hematology/[place] [address] Results Social History Tobacco Use Types Packs/Day [...] * Telephone Encounter - Tito Matta V, [facility] - 05/30/2022 3:27 PM EST This test result was discussed with the patient by phone. A copy of the test results have been scanned in the medical record and sent to Alize. A summary of the results is provided below. Please beadvised that [place] law requires that all health care workers respect the confidentiality ofthis information and not pass it along to other health care providers, insurance companies, or individuals without the written permission of the patient. The Familial Cancer Program welcomes any questions about these matters. Our phone number is: [phone]. On 05/13/2022 Alize was seen for genetic [...] CDH1, CDK4, CDKN1B, CDKN1C, CDKN2A (p14ARF), CDKN2A (r26AKE2F), CEBPA, CHEK2, CTNNA1, DICER1, DIS3L2, EGFR, EPCAM (Chris tion/duplication testing only), FH, FLCN, GATA2, GPC3, GREM1 (Promoter region deletion/duplication testing only), HOXB13, HRAS, KIT, MAX, MEN1, MET, MITF, (c.952G>A,P.Cww597Nyl variant only), MLH1, MSH2, MSH3, MSH6, MUTYH, NBN, NF1, NF2, NTHL1, PALB2, PDGFRA, PHOX2B, PMS2, POLD1, POLE, POT1, GPGAX4H, PTCH1, PTEN, RAD50, RAD51C, RAD51D, RB1, RECQL4, REST, RET, RUNX1, SDHA, SDHAF2, SDHB, SDHC, SDHD, SMAD4, SMARCA4, SMARCB1, SMARCE1, STK11, SUFU, TERC, TERT, RFJV931, TP53, TSC1, TSC2, VHL, WRN,and WT1. Interpretation: [...] and/or Pap smears as recommended by Alize's cut roll machine operator or primary care provider. Colon cancer screening ?? Routine colorectal cancer screening starting by age 45-50 is important for everyone, regardless of genetic predisposition. ?? Periodic colonoscopy screening as recommended by Alize's budget examiner. Skin cancer screening ?? Skin cancer screening and sun protection are important for everyone, regardless of genetic predisposition. ?? Consideration of routine dermatologic/skin exams, as recommended by Alize's primary care provider or switchboard operator receptionist. documented in this encounter Plan of Treatment Upcoming Encounters Date Type Department Care Team (Latest Contact Info) Description 08/29/2024 1:00 PM EST Hospital Encounter [place] [address] Roland Gooden MD [facility] [place] [address] 08/29/2024 1:00 PM EST - 08/29/2024 2:00 PM EST Surgery [place] [phone] Roland Gooden MD [facility] [place] [address] EGD, UPPER GI ENDOSCOPY (WRVU 2.09) 10/02/2024 1:00 PM EDT Office [place] [address] Juanpablo Hernandez MD [facility] [place] [address] 10/21/2024 9:30 AM EDT Office Visit Internal Medicine at [place] [address] [place] [address] Daryn Garrett MD [facility] DR LILI WALKER [place] [address] 01/30/2025 1:30 PM EDT Laboratory Appointment Lab at [facility] [place]ology Oncology [address] [place] [phone] 01/30/2025 3:[address] [place] [phone] Arturo Cordero MD [facility] DR HEMATOLOGY [place] [address] 01/30/2025 4:15 PM EDT Office Visit Hematology [place] [phone] Arturo Cordero MD [facility] DR HEMATOLOGY [place] [address] Scheduled Procedures Name Priority Associated Diagnoses Date/Ti me EGD, UPPER GI ENDOSCOPY (WRVU 2.09) Irritable bowel syndrome with constipation 08/29/2024 1:00 PM EST COLONOSCOPY, DIAGNOSTIC (WRVU 3.26) Irritable bowel syndrome with constipation 08/29/2024 1:00 PM EST documented as of this encounter Visit Diagnoses Not on filedocumented in this encounter Care Teams Birdcage Assembler Relationship Specialty Start Date End Date Luis E Narayan MD [facility] DR LILI WALKER[place] [address] PCP - General Family Medicine 01/20/22 07/17/22 documented as of this encounter
--- OUTSIDE RECORDS SUMMARY | 2024-08-20 15:55 | XMS_ITS | Encounter Summary ---
Author Organization [facility] Address [facility] [place] [address] Care Team Providers Care Finishing Department Supervisor Name Role Phone Luis E Narayan MD Primary Care Provider +1- [phone] Reason for Visit * Reason Onset Date Comments Medication Refill 06/19/2022 Encounter Details Date Type Department Care Team (Late st Contact Info) Description 06/19/2022 Refill Family Medicine at [facility] [address] [place] [address] Tamera Khan, GLASS SMOOTHER [facility] DR LILI WALKER[place] [address] Bloating Social History Tobacco Use Types Packs/Day [...] PM EST Hospital Encounter [place] [phone] Roland Gooden MD [facility] [place] [address] 08/29/2024 1:00 PM EST - 08/29/2024 2:00 PM EST Surgery [place] [phone] Roland Gooden MD [facility] [place] [address] EGD, UPPER GI ENDOSCOPY (WRVU 2.09) 10/02/2024 1:00 PM EDT Office [place] [phone] Juanpablo Hernandez MD [facility] [place] [address] 10/21/2024 9:30 AM EDT Office Visit Internal Medicine at [facility] [place] [address] Daryn Garrett MD [facility] DR LILI WALKER [place] [address] 01/30/2025 1:30 PM EDT Laboratory Appointment Lab at [facility] Hematology Oncology [address] [place] [phone] 01/30/2025 3:[address] [place] [phone] Arturo Cordero MD [facility] DR HEMATOLOGY [place] [address] 01/30/2025 4:15 PM EDT Office Visit Hematology [place] [phone] Arturo Cordero MD [facility] DR HEMATOLOGY [place] [address] Scheduled Procedures Name Priority Associated Diagnoses Date/Ti me EGD, UPPER GI ENDOSCOPY (WRVU 2.09) Irritable bowel syndrome with constipation 08/29/2024 1:00 PM EST COLONOSCOPY, DIAGNOSTIC (WRVU 3.26) Irritable bowel syndrome with constipation 08/29/2024 1:00 PM EST documented as of this encounter Visit Diagnoses Diagnosis Bloating Flatulence, eructation, and gas pain Irritable bowel syndrome with constipation Irritable bowel syndrome documented in this encounter Care Teams Finishing Department Supervisor Relationship Specialty Start Date End Date Luis E Narayan MD [facility] DR LILI WALKER[place] [address] PCP - General Family Medicine 01/20/22 07/17/22 documented as of this encounter
--- OUTSIDE RECORDS SUMMARY | 2024-08-20 15:55 | XMS_ITS | Encounter Summary ---
Author Organization [facility] Address [facility] [place] [address] Care Team Providers Care Chief Privacy Officer Name Role Phone Luis E Narayan MD Primary Care Provider +1- [phone] Reason for Visit * Reason Onset Date Comments Medication Refill 04/21/2022 Encounter Details Date Type Department Care Team (Late st Contact Info) Description 04/21/2022 Refill Family Medicine at [facility] [address] [place] [address] Earl Valdez MD [facility] DR LILI [place] [address] Social History Tobacco Use Types Packs/Day Years [...] (Latest Contact Info) Description 08/29/2024 1:00 PM [facility] Hospital Encounter [place] [address] Roland Gooden MD [facility] [place] [address] 08/29/2024 1:00 PM EST - 08/29/2024 2:00 PM EST Surgery Gastroenterology at [place] [address] Roland oGoden MD [facility] [place] [address] EGD, UPPER GI ENDOSCOPY (WRVU 2.09) 10/02/2024 1:00 PM EDT Office Visit Ophthalmology at [place] [phone] Juanpablo Hernandez MD [facility] [place] [address] 10/21/2024 9:30 AM EDT Office Visit Internal Medicine at [address] [phone] Daryn Garrett MD [facility] DR LILI [place] [address] 01/30/2025 1:30 PM EDT Laboratory Appointment Lab at [facility] Hematology Oncology [address] [place], [place] [phone] 01/30/2025 3:[address] Scan at [place] [phone] Arturo Cordero MD [facility] HEMATOLOGY [place] [address] 01/30/2025 4:15 PM EDT Office Visit Hematology and Oncology at [place] [phone] Arturo Cordero MD [facility] [place]EMATOLOGY [place] [address] Scheduled Procedures Name Priority Associated Diagnoses Date/Ti me EGD, UPPER GI ENDOSCOPY (WRVU 2.09) Irritable bowel syndrome with constipation 08/29/2024 1:00 PM EST COLONOSCOPY, DIAGNOSTIC (WRVU 3.26) Irritable bowel syndrome with constipation 08/29/2024 1:00 PM EST documented as of this encounter Visit Diagnoses Not on filedocumented in this encounter Care Teams Chief Privacy Officer Relationship Specialty Start Date End Date Luis E Narayan MD [facility] [address] [place] [address] PCP - General Family Medicine 01/20/22 07/17/22 documented as of this encounter
--- OUTSIDE RECORDS SUMMARY | 2024-08-20 15:55 | XMS_ITS | Encounter Summary ---
Author Organization [facility] [place] [address] Care Team Providers Care Upper Leather Sorter Name Role Phone Luis E Narayan MD Primary Care Provider Reason for Visit * Diagnostic Test (Routine) - Closed Specialty Diagnoses / Procedures Referred By Gonzalez kumari Referred To Contact Gastroenterology Diagnoses Bloating Dyspepsia HBT - glucose - bloating Procedures Breath Hydrogen Test HBT - glucose - bloating Alejandra Pop, PRIMER PRESS OPERATOR [address] [place] [address] [facility] [address] [place] [address] Referral ID Status Reason Start Date Expiration Date V isits Requested Visits Authorized [id number] Closed Consult, Test & Treat 03/01/2022 03/01/2023 1 1 Encounter Details Date Type Department Care Team (Late st Contact Info) Description 05/13/2022 10:00 AM EDT Procedure visit [place] [phone] Bloating; Dyspepsia Social History Tobacco Use Types [...] Breath Testing in Gastrointestinal Disorders: The [place] Consensus (Am J Gastroenterol 2017; 112(5):775-84. Apositive breath test is defined as a rise in hydrogen production >20 ppm compared to baseline within 90 minutes. Methane-positive is defined by at least 10 ppm production of methane. Signed, Alejandra Pop APRN Gastroenterology [place] [address] P: [phone] F: [phone] Copy: Alejandra Narayan MD documented in this encounter Plan of Treatment Upcoming Encounters Date Type Department Care Team (Latest Contact Info) Description 08/29/2024 1:00 PM EST Hospital Encounter Gastroenterology at [place] [phone] Roland Gooden MD [facility] [place] [address] 08/29/2024 1:00 PM EST - 08/29/2024 2:00 PM EST Surgery Gastroenterology at [place] [phone] Roland Gooden MD [facility] [place] [address] EGD, UPPER GI ENDOSCOPY (WRVU 2.09) 10/02/2024 1:00 PM EDT Office Visit Ophthalmology at [place] [phone] Juanpablo Hernandez MD [facility] [place] [address] 10/21/2024 9:30 AM EDT Office Visit Internal Medicine at [facility] [address] [place] [phone] Daryn Garrett MD [facility] DR LILI [place] [address] 01/30/2025 1:30 PM EDT Laboratory Appointment Lab at [facility] Hematology Oncology [address] [place] [phone] 01/30/2025 3:[address] [place] [phone] Arturo Cordero MD [facility] [place] [address] 01/30/2025 4:15 PM EDT Office Visit Hematology [place] [phone] Arturo Cordero MD [facility] DR [place] [address] Scheduled Procedures Name Priority Associated Diagnoses Date/Ti me EGD, UPPER GI ENDOSCOPY (WRVU 2.09) Irritable bowel syndrome with constipation 08/29/2024 1:00 PM EST COLONOSCOPY, DIAGNOSTIC (WRVU 3.26) Irritable bowel syndrome with constipation 08/29/2024 1:00 PM EST documented as of this encounter Visit Diagnoses Diagnosis Bloating Flatulence, eructation, and gas pain Dyspepsia Dyspepsia and other specified disorders of function of stomach Irritable bowel syndrome with constipation Irritable bowel syndrome documented in this encounter Care Teams Upper Leather Sorter Relationship Specialty Start Date End Date Luis E Narayan MD [facility] DR LILI [place] [address] PCP - General Family Medicine 01/20/22 07/17/22 documented as of this encounter
--- OUTSIDE RECORDS SUMMARY | 2024-08-20 15:55 | XMS_ITS | Encounter Summary ---
Author Organization [facility] [place] [address] Care Team Providers Care District Claims Manager Name Role Phone Luis E Narayan MD Primary Care Provider Reason for Referral * Diagnostic Test (Routine) - Closed Specialty Diagnoses / Procedures Referred By Contac t Referred To Contact Radiology Diagnoses Malignant melanoma of conjunctiva, left Procedures CT Chest Abdomen Pelvis w Contrast (Generic) Leandra Lopes APRN [facility] DR HEMATOLOGY [place] [address] [facility] [place] [address] Referral ID Status Reason Start Date Expiration Date V isits Requested Visits Authorized [id number] Closed Specialty Service Requested 12/24/2021 06/25/2023 1 1 * Diagnostic Test (Routine) - Closed Specialty Diagnoses / Procedures Referred By Contac t Referred To Contact Radiology Diagnoses Malignant melanoma of conjunctiva, left Procedures CT Neck Soft Tissue w Contrast (Generic) Leandra Lopes APRN [facility] HEMATOLOGY [place] [address] [facility] [place] [address] Referral ID Status Reason Start Date Expiration Date V isits Requested Visits Authorized [id number] Closed Specialty Service Requested 12/24/2021 06/25/2023 1 1 Reason for Visit * Diagnostic Test (Routine) - Closed Specialty Diagnoses / Procedures Referred By Contchrissy t Referred To Contact Radiology Diagnoses Malignant melanoma of conjunctiva, left Procedures CT Chest Abdomen Pelvis w Contrast (Generic) Leandra Lopes APRN [facility] DR HEMATOLOGY [place] [address] [facility] [place] [address] Referral ID Status Reason Start Date Expiration Date V isits Requested Visits Authorized [id number] Closed Specialty Service Requested 12/24/2021 06/25/2023 1 1 Encounter Details Date Type Department Care Team (Late st Contact Info) Description 06/23/2022 11:14 AM EST - 06/23/2022 11:30 AM EST Hospital Encounter [place] [phone] Leandra Lopes APRN [facility] DR HEMATOLOGY [place] [address] Malignant melanoma of conjunctiva, left Discharge Disposition: [...] 1 each 12/10/2021 02/04/2023 FreeStyle Sanjana 2 [place] MiscIndications:diabet es mellitus 1 each by Other route daily. Indications: diabetes mellitus 1 each 10/26/2021 01/23/2023 FreeStyle Sanjana 2 Sensor KitIndications:diabete s mellitus 1 each by Other route every 14 days. Indications: diabetes mellitus 2 kit 10/26/2021 01/23/2023 fluticasone propionate (Flonase) 50 mcg/actuation [place], Suspension 1 spray by Each Nare route [...] 1:00 PM EST Hospital Encounter Gastroenterology at [place] [phone] Roland Gooden MD [facility] [place] [address] 08/29/2024 1:00 PM EST - 08/29/2024 2:00 PM EST Surgery Gastroenterology at [place] [phone] Roland Gooden MD [facility] [place] [address] EGD, UPPER GI ENDOSCOPY (WRVU 2.09) 10/02/2024 1:00 PM EDT Office Visit [place] [phone] Juanpablo Hernandez MD [facility] [place] [address] 10/21/2024 9:30 AM EDT Office Visit Internal Medicine at [place] [address] [place] [address] Daryn Garrett MD [facility] DR LILI WALKER - [place] [address] 01/30/2025 1:30 PM EDT Laboratory Appointment Lab at [facility] [place] [address] [place] [phone] 01/30/2025 3:[address] [place] [phone] Arturo Cordero MD [facility] DR HEMATOLOGY [place] [address] 01/30/2025 4:15 PM EDT Office Visit Hematology [place] [phone] Arturo Cordero MD [facility] DR HEMATOLOGY [place] [address] Scheduled Procedures Name Priority Associated Diagnoses Date/Ti [...] who have questions please contact the health before and after school daycare worker that requested your imaging first. ? [...] patients who have questions please contactthe health before and after school daycare worker that requested your imaging first. Leandra Lopes [...] who have questions please contact the health before and after school daycare worker that requested your imaging first. ? Electronically signed by: Chuy Delgado MD, [facility] ([phone]), at 06/24/2022 11:34 AM Narrative 06/24/2022 11:34 [...] patients who have questions please contactthe health before and after school daycare worker that requested your imaging first. Electronically signed by: Chuy Delgado MD, [facility]([phone]), at 06/24/2022 11:34 AM Leandra Lopes APRN IMG CT ORDERABLES documented [...] documented in this encounter Care Teams District Claims Manager Relationship Specialty Start Date End Date Luis E Narayan MD [facility] DR LILI WALKER-[place] [address] PCP - General Family Medicine 01/20/22 07/17/22 documented as of this encounter
--- OUTSIDE RECORDS SUMMARY | 2024-08-20 15:55 | XMS_ITS | Encounter Summary ---
Author Organization [facility] [place] [address] Care Team Providers Care Header Operator Name Role Phone Luis E Narayan MD Primary Care Provider +1- [phone] Encounter Details Date Type Department Care Team (Latest Contact Info) Description 05/13/2022 12:52 PM EDT - 05/13/2022 11:59 PM EDT Hospital Encounter [place] [address] Ocular melanoma, left; Renal cell cancer, left; [...] each 11 12/10/2021 02/04/2023 FreeStyle Sanjana 2 [place] MiscIndications:diabet es mellitus 1 each by Other [...] 10/11/2021 06/16/2022 fluticasone propionate (Flonase) 50 mcg/actuation [place], Suspension 1 spray by Each Nare route [...] 1:00 PM EST Hospital En[place] [phone] Roland Gooden MD [facility] [place] [address] 08/29/2024 1:00 PM EST - 08/29/2024 2:00 PM EST [place] [address] Roland Gooden MD [facility] [place] [address] EGD, UPPER GI ENDOSCOPY (WRVU 2.09) 10/02/2024 1:00 PM EDT [place] [address] Juanpablo Hernandez MD [facility] [place] [address] 10/21/2024 9:30 AM EDT Office Visit Internal Medicine at [address] [phone] Daryn Garrett MD [facility] DR LILI W[place] [address] 01/30/2025 1:30 PM EDT Laboratory Appointment Lab at [facility] Hematology Oncology [address] [place] [phone] 01/30/2025 3:[address] [place] [address] Arturo Cordero MD [facility] [place] [address] 01/30/2025 4:15 PM EDT Office Visit [place]ology [place] [address] Arturo Cordero MD [facility] DR HEMATOLOG[place] [address] Scheduled Procedures Name Priority Associated Diagnoses Date/Ti [...] (05/13/2022 1:05 PM EDT) Research Venipuncture Drawn [facility] Comment: Collection date/time has been modified to: 13:05:00. ??Previous collection date/time: 13:08:00. Corrected from Drawn [NA] on 05/13/22 13:36:44 EDT by Cyndi Dowd Blood 05/13/2022 1:05 PM EDT 05/13/2022 1:25 PM EDT Narrative Resulting Agency Comment Spec In Lab Dar Fernandez MD CHEMISTRY ORDERABLES [facility] [place] [address] documented in this encounter Visit Diagnoses Diagnosis Ocular melanoma, left Renal cell cancer, left Malignant melanoma of conjunctiva, left Irritable bowel syndrome with constipation Irritable bowel syndrome documented in this encounter Care Teams Header Operator Relationship Specialty Start Date End Date Luis E Narayan MD [facility] DR LILI W[place] [address] PCP - General Family Medicine 01/20/22 07/17/22 documented as of this encounter
--- OUTSIDE RECORDS SUMMARY | 2024-08-20 15:55 | XMS_ITS | Encounter Summary ---
Author Organization [facility] [place] [address] Care Team Providers Care Bowling Pin Refinisher Name Role Phone Luis E Narayan MD Primary Care Provider Encounter Details Date Type Department Care Team (Late st Contact Info) Description 04/21/2022 Telephone Family Medicine at [address] [place] [phone] Shannon Ward, RN Social History Tobacco Use [...] 04/21/2022 4:24 PM EDT Letter received from [facility] requesting neb supplies with nebulizer order. DME order re-prepped and pended for provider review. documented in this encounter Plan of Treatment Upcoming Encounters Date Type Department Care Team (Latest Contact Info) Description 08/29/2024 1:00 PM EST Hospital Encounter [place] [address] Roland Gooden MD [facility] [address] 08/29/2024 1:00 PM EST - 08/29/2024 2:00 PM EST Surgery [place] [phone] Roland Gooden MD [facility] [place] [address] EGD, UPPER GI ENDOSCOPY (WRVU 2.09) 10/02/2024 1:00 PM EDT Office [place] [phone] Juanpablo Hernandez MD [facility] [place] [address] 10/21/2024 9:30 AM EDT Office Visit Internal Medicine at [address] [place] [phone] Daryn Garrett MD [facility] DR L[place] [address] 01/30/2025 1:30 PM EDT Laboratory Appointment Lab at [facility] Hematology Oncology [address] [place] [phone] 01/30/2025 3:[address] [place] [phone] Arturo Cordero MD [facility] [place] [address] 01/30/2025 4:15 PM EDT Office Visit Hematology [place] [phone] Arturo Cordero MD [facility] [place] [address] Scheduled Procedures Name Priority Associated Diagnoses Date/Ti me EGD, UPPER GI ENDOSCOPY (WRVU 2.09) Irritable bowel syndrome with constipation 08/29/2024 1:00 PM EST COLONOSCOPY, DIAGNOSTIC (WRVU 3.26) Irritable bowel syndrome with constipation 08/29/2024 1:00 PM EST documented as of this encounter Visit Diagnoses Diagnosis COPD Simple chronic bronchitis Irritable bowel syndrome with constipation Irritable bowel syndrome documented in this encounter Care Teams Bowling Pin Refinisher Relationship Specialty Start Date End Date Luis E Narayan MD [facility] DR LILI [place] [address] PCP - General Family Medicine 01/20/22 07/17/22 documented as of this encounter
--- OUTSIDE RECORDS SUMMARY | 2024-08-20 15:55 | XMS_ITS | Encounter Summary ---
Author Organization [facility] [place] [address] Care Team Providers Care Barratte Operator Name Role Phone Luis E Narayan MD Primary Care Provider +1- [phone] Reason for Referral * Psychiatric (Routine) - Closed Specialty Diagnoses / Procedures Referred By Gonzalez kumari Referred To Contact Psychiatry Diagnoses Chronic insomnia Asha Morataya MD [facility] [place] [address] Sadie Weinberg, PhD [facility] DR [place] [address] Referral ID Status Reason Start Date Expiration Date V isits Requested Visits Authorized [id number] Closed Specialty Service Requested 04/19/2022 04/19/2023 1 1 Encounter Details Date Type Department Care Team (Late st Contact Info) Description 04/19/2022 11:00 AM EDT Office Visit Sleep Center at [facility] [address] [place] [address] Asha Morataya MD [facility] [place] [address] Chronic insomnia; TITO (obstructive sleep apnea) Social [...] drive. If you get sleepy while driving pull worker ,turn the car off and nap. You may resume driving once you feel alert. 12) Read No More Sleepless Nights by Mack Heaton PhD. 13) There are some on-line resources that do require a fee that can be of help. Two credible websites are as follows: http://www.Gild https://www.sleepio.com An star used by the [place] is as follows: CBT-I Product Control And Logistics Analyst documented in this encounter Progress Notes * [...] no change in treatment ?? Re-evaluation in [facility] 05/09/19 [...] would wake 6-6:30 am Questionnaires: Patient-reported scores: [facility] 04/13/2022 [place] [facility] 5 (Low Risk) Insomnia Severity Index 9 (Subthreshold insomnia) [facility] 05/07/2019 05/09/2019 04/13/2022 [place] [facility] 7 (Low Risk) 10 (High Risk) [...] Diagnosis Code ??? 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 Altered [...] 11 ??? fluticasone propionate (Flonase) 50 mcg/actuation [place], Suspension 1 spray by Each Nare route [...] Lite Meter Kit ??? FreeStyle Sanjana 2 [place] Misc 1 each by Other route daily. [...] unapproved cleaning methods (such as ozone generating engineer station mainline). She is not aware of any black particles in the PAP circuit. Discussed that at this time, we believe that the benefit of CPAP likely outweighs the risk and that the steel layout worker will replace or repair the machine [...] counseling, chart review and documentation. Established patient: 77444: ___Total time including face to face, chart review and documentation of 20-29 min OR ___Low level of medical decision making (ie 1 stable (= at goal) chronic illnesses and low risk of morbidity) 28887: ___Total time including face to face, chart review and documentation of 30-39 min OR ___Moderate level of medical decision making (ie 1 chr illness with exac, progression or side effects of treatment or 2+ stable chronic illnesses and moderate risk of morbidity) 38662: _X__Total time including face to face, chart [...] 1:00 PM EST Hospital En[place] [address] Roland Gooden MD [facility] [place] [address] 08/29/2024 1:00 PM EST - 08/29/2024 2:00 PM EST [place] [address] Roland Gooden MD [facility] [place] [address] EGD, UPPER GI ENDOSCOPY (WRVU 2.09) 10/02/2024 1:00 PM EDT Office Visit Ophthalmology at [place] [phone] Juanpablo Hernandez MD [facility] [place] [address] 10/21/2024 9:30 AM EDT Office Visit Internal Medicine at [address] [place] [phone] Daryn Garrett MD [facility] DR LIL[place] [address] 01/30/2025 1:30 PM EDT Laboratory Appointment Lab at [facility] Hematology Oncology [address] [place] [phone] 01/30/2025 3:[address] Scan at [place] [phone] Arturo Cordero MD [facility] [place] [address] 01/30/2025 4:15 PM EDT Office Visit Hematology [place] [phone] Arturo Cordero MD [facility] [place] [address] Scheduled Procedures Name Priority Associated Diagnoses Date/Ti [...] sleep apnea) Obstructive sleep apnea (adult) (pediatric) Irritable bowel syndrome with constipation Irritable bowel syndrome documented in this encounter Care Teams Barratte Operator Relationship Specialty Start Date End Date Luis E Narayan MD [facility] [address] [place] [address] PCP - General Family Medicine 01/20/22 07/17/22 documented as of this encounter
--- OUTSIDE RECORDS SUMMARY | 2024-08-20 15:55 | XMS_ITS | Encounter Summary ---
[facility] [address] Care Team Providers Care Farm Service Consultant Name Role Phone Luis E Narayan MD Primary Care Provider +1- [phone] Reason for Visit * Reason Onset Date Comments Results 05/23/2022 Encounter Details Date Type Department Care Team (Late st Contact Info) Description 05/23/2022 Telephone Hematology [place] [address] Tito Matta V [facility] Hematology/[place] [address] Results Social History Tobacco Use Types Packs/Day [...] * Telephone Encounter - Gudelia Mattas Selvin, [facility] - 05/23/2022 11:33 AM EST This test result was discussed with the patient by phone. A copy of the test results have been scanned in the medical record and sent to [facility]. A summary of the results is provided below. Please beadvised that [place] law requires that all health care workers respect the confidentiality ofthis information and not pass it along to other health care providers, insurance companies, or individuals without the written permission of the patient. The Familial Cancer Program welcomes any questions about these matters. Our phone number is: [phone]. On 05/13/2022 Alize was seen for genetic counseling and subsequently underwent genetic testing for a hereditary predisposition to Renal/Ur. Following are the results of this test. Result: [facility] Renal/Urinary Tract Cancers Panel showed no mutation [...] Alize had previously opted for reflex to [facility]'s Multi-Cancer Panel andthis additional testing is still [...] 1:00 PM EST Hospital Encounter [place] [address] Roland Gooden MD [facility] [address] 08/29/2024 1:00 PM EST - 08/29/2024 2:00 PM EST [place] [address] Roland Gooden MD [facility] [place] [place] [address] EGD, UPPER GI ENDOSCOPY (WRVU 2.09) 10/02/2024 1:00 PM EDT Office [place] [phone] Juanpablo Hernandez MD [facility] [address] 10/21/2024 9:30 AM EDT Office Visit Internal Medicine at [address] [place] [phone] Daryn Garrett MD [facility] DR LILI [place] [address] 01/30/2025 1:30 PM EDT Laboratory Appointment Lab at [facility] Hematology Oncology [address] [place] [phone] 01/30/2025 3:[address] [place] [address] Arturo Cordero MD [facility] DR [place]AT[place] [address] 01/30/2025 4:15 PM EDT Office Visit Hematology [place] [address] Arturo Cordero MD [facility] DR [place]AT[place] [address] Scheduled Procedures Name Priority Associated Diagnoses Date/Ti me EGD, UPPER GI ENDOSCOPY (WRVU 2.09) Irritable bowel syndrome with constipation 08/29/2024 1:00 PM EST COLONOSCOPY, DIAGNOSTIC (WRVU 3.26) Irritable bowel syndrome with constipation 08/29/2024 1:00 PM EST documented as of this encounter Visit Diagnoses Not on filedocumented in this encounter Care Teams Farm Service Consultant Relationship Specialty Start Date End Date Sylvain, Luis E E, MD [facility] [address] [place] [address] PCP - General Family Medicine 01/20/22 07/17/22 documented as of this encounter
--- OUTSIDE RECORDS SUMMARY | 2024-08-20 15:55 | XMS_ITS | Encounter Summary ---
Author Organization [facility] Address [facility] [place] [address] Care Team Providers Care Product Promoter Retail Pet Name Role Phone Luis E Narayan MD Primary Care Provider +1- [phone] Reason for Visit * Reason Comments Follow-up Encounter Details Date Type Department Care Team (Late st Contact Info) Description 04/19/2022 3:30 PM EDT Office Visit Family Medicine at [facility] [address] [place] [address] Suzanne Martinez APRN [facility] DR LILI [place] [address] LLQ pain; Community acquired pneumonia, unspecified laterality; [...] this encounter Progress Notes * Suzanne Martinez, PSYCHOLOGY INTERN - 04/19/2022 3:30 PM EDT Alize Gramajo is a 61 y.o. female , patient of Luis E Narayan MD here for Chief Complaint Patient presents with ??? Follow-up Subjective HPI: Alize presents for ED follow up for [facility] visit for LLQ pain and diarrhea [...] but ongoing. Treated empirically with Augmentin at [facility] for ?diverticulitis and she is on [...] 1:00 PM EST Hospital Encounter G[place] [address] Roland Gooden MD [facility] [place] [address] 08/29/2024 1:00 PM EST - 08/29/2024 2:00 PM EST Surgery [place] [address] Roland Gooden MD [facility] [place] [address] EGD, UPPER GI ENDOSCOPY (WRVU 2.09) 10/02/2024 1:00 PM EDT Office Visit [place] [address] Juanpablo Hernandez MD [facility] [place] [address] 10/21/2024 9:30 AM EDT Office Visit Internal Medicine at [facility] [address] [place] [phone] Daryn Garrett MD [facility] DR LIL[facility] [place] [address] 01/30/2025 1:30 PM EDT Laboratory Appointment Lab at [facility] Hematology Oncology [address] [place] [phone] 01/30/2025 3:[address] [place] [phone] Arturo Cordero MD [facility] DR [place] [address] 01/30/2025 4:15 PM EDT Office Visit Hematology [place] [phone] Arturo Cordero MD [facility] DR [place] [address] Scheduled Procedures Name Priority Associated Diagnoses Date/Ti [...] of adrenal glands Low back pain, non-specific Irritable bowel syndrome with constipation Irritable bowel syndrome documented in this encounter Care Teams Product Promoter Retail Pet Relationship Specialty Start Date End Date Luis E Narayan MD [facility] [address] [place] [address] PCP - General Family Medicine 01/20/22 07/17/22 documented as of this encounter
--- OUTSIDE RECORDS SUMMARY | 2024-08-20 15:55 | XMS_ITS | Encounter Summary ---
Author Organization [facility] Address [facility] [place] [address] Care Team Providers Care Lens Maker Name Role Phone Luis E Narayan MD Primary Care Provider +1- [phone] Reason for Visit * Reason Comments Melanoma Encounter Details Date Type Department Care Team (Late st Contact Info) Description 06/01/2022 12:30 PM EST Office [place] [address] Juanpablo Hernandez MD [facility] [place] [place] [address] Malignant melanoma of conjunctiva, left; Diabetic eye [...] PM EST Hospital Encounter [place] [address] Roland Gooden MD [facility] [place] [place] [address] 08/29/2024 1:00 PM EST - 08/29/2024 2:00 PM EST Surgery Gastroenterology at [place] [phone] Roland Gooden MD [facility] [place] [address] EGD, UPPER GI ENDOSCOPY (WRVU 2.09) 10/02/2024 1:00 PM EDT Office Visit Ophthalmology at [place] [phone] Juanpablo Hernandez MD [facility] [place] [address] 10/21/2024 9:30 AM EDT Office Visit Internal Medicine at [address] [phone] Daryn Garrett MD [facility] [place] [place] [address] 01/30/2025 1:30 PM EDT Laboratory Appointment Lab at [facility] Hematology Oncology [address] [place] [phone] 01/30/2025 3:[address] Scan at [place] [phone] Arturo Cordero MD [facility] [place] [address] 01/30/2025 4:15 PM EDT Office Visit Hematology [place] [address] Arturo Cordero MD [facility] HEMATOLOGY AND ONCOLOGY [place], [place] [phone] Scheduled Procedures Name Priority Associated Diagnoses Date/Ti me EGD, UPPER GI ENDOSCOPY (WRVU 2.09) Irritable bowel syndrome with constipation 08/29/2024 1:00 PM EST COLONOSCOPY, DIAGNOSTIC (WRVU 3.26) Irritable bowel syndrome with constipation 08/29/2024 1:00 PM EST documented as of this encounter Visit Diagnoses Diagnosis Malignant melanoma of conjunctiva, left Diabetic eye exam Examination of eyes and vision Irritable bowel syndrome with constipation Irritable bowel syndrome documented in this encounter Care Teams Lens Maker Relationship Specialty Start Date End Date Luis E Narayan MD [facility] DR LILI [place] [address] PCP - General Family Medicine 01/20/22 07/17/22 documented as of this encounter
--- OUTSIDE RECORDS SUMMARY | 2024-08-20 15:55 | XMS_ITS | Encounter Summary ---
Author Organization [facility] Address [facility] [place] [address] Care Team Providers Care Enterprise Sales Executive Name Role Phone Daryn Garrett MD Primary Care Provider Reason for Visit * Reason Onset Date Comments Medication Refill 04/14/2022 Encounter Details Date Type Department Care Team (Late st Contact Info) Description 04/14/2022 Refill Family Medicine at [facility] [address] [place] [address] Luis E Narayan MD [facility] DR LILI [place] [address] Social History Tobacco Use Types Packs/Day Years [...] 1:00 PM EST Hospital Encounter [place] [phone] Roland Gooden MD [facility] [place] [address] 08/29/2024 1:00 PM EST - 08/29/2024 2:00 PM EST Surgery [place] [phone] Roland Gooden MD [facility] [place] [address] EGD, UPPER GI ENDOSCOPY (WRVU 2.09) 10/02/2024 1:00 PM EDT Office [place] [phone] Juanpablo Hernandez MD [facility] [place] [address] 10/21/2024 9:30 AM EDT Office Visit Internal Medicine at [place] [address] [place] [address] Daryn Garrett MD [facility] [place] [address] 01/30/2025 1:30 PM EDT Laboratory Appointment Lab at [facility] Hematology Oncology [address] [place] [phone] 01/30/2025 3:[address] [place] [phone] Arturo Cordero MD [facility] [place] [address] 01/30/2025 4:15 PM EDT Office Visit Hematology [place] [phone] Arturo Cordero MD [facility] [place] [address] Scheduled Procedures Name Priority Associated Diagnoses Date/Ti me EGD, UPPER GI ENDOSCOPY (WRVU 2.09) Irritable bowel syndrome with constipation 08/29/2024 1:00 PM EST COLONOSCOPY, DIAGNOSTIC (WRVU 3.26) Irritable bowel syndrome with constipation 08/29/2024 1:00 PM EST documented as of this encounter Visit Diagnoses Not on filedocumented in this encounter Care Teams Enterprise Sales Executive Relationship Specialty Start Date End Date Daryn Garrett MD [facility] [place] [address] PCP - General 04/10/24 documented as of this encounter
--- OUTSIDE RECORDS SUMMARY | 2024-08-20 15:55 | XMS_ITS | Encounter Summary ---
Author Organization [facility] Address [facility] [place] [address] Care Team Providers Care Expressive Music Therapist Name Role Phone Luis E Narayan MD Primary Care Provider +1- [phone] Reason for Visit * Reason Onset Date Comments Medication Refill 04/14/2022 Encounter Details Date Type Department Care Team (Late st Contact Info) Description 04/14/2022 Refill Family Medicine at [facility] [address] [place] [address] Cuate Solis PA [facility] DR LILI WALKER[place] [address] Social History Tobacco Use Types Packs/Day Years [...] 1:00 PM EST Hospital Encounter [place] [phone] Roland Gooden MD [facility] [place] [address] 08/29/2024 1:00 PM EST - 08/29/2024 2:00 PM EST [place] [address] Roland Gooden MD [facility] [place] [address] EGD, UPPER GI ENDOSCOPY (WRVU 2.09) 10/02/2024 1:00 PM EDT Office [place] [phone] Juanpablo Hernandez MD [facility] [place] [address] 10/21/2024 9:30 AM EDT Office Visit Internal Medicine at [address] [phone] Daryn Garrett MD [facility] DR LILI WALKER [place] [address] 01/30/2025 1:30 PM EDT Laboratory Appointment Lab at [facility] Hematology Oncology [address] [place] [phone] 01/30/2025 3:[address] [place] [address] Arturo Cordero MD [facility] HEMATOLOGY [place] [address] 01/30/2025 4:15 PM EDT Office Visit Hematology [place] [address] Arturo Cordero MD [facility] HEMATOLOGY [place] [address] Scheduled Procedures Name Priority Associated Diagnoses Date/Ti me EGD, UPPER GI ENDOSCOPY (WRVU 2.09) Irritable bowel syndrome with constipation 08/29/2024 1:00 PM EST COLONOSCOPY, DIAGNOSTIC (WRVU 3.26) Irritable bowel syndrome with constipation 08/29/2024 1:00 PM EST documented as of this encounter Visit Diagnoses Not on filedocumented in this encounter Care Teams Expressive Music Therapist Relationship Specialty Start Date End Date Luis E Narayan MD [facility] [address] [place] [address] PCP - General Family Medicine 01/20/22 07/17/22 documented as of this encounter
--- OUTSIDE RECORDS SUMMARY | 2024-08-20 15:55 | XMS_ITS | Encounter Summary ---
Author Organization [facility], [facility]–1983 Address [facility] [place] [address] Care Team Providers Care Perishable Freight Inspector Name Role Phone Luis E Narayan MD Primary Care Provider +1- [phone] Encounter Details Date Type Department Care Team [...] 1:00 PM EST Hospital En[place] [phone] Roland Gooden MD [facility] [place] [address] 08/29/2024 1:00 PM EST - 08/29/2024 2:00 PM EST [place] [phone] Roland Gooden MD [facility] [place] [place] [address] EGD, UPPER GI ENDOSCOPY (WRVU 2.09) 10/02/2024 1:00 PM EDT [place] [phone] Juanpablo Hernandez MD [facility] [place] [address] 10/21/2024 9:30 AM EDT Office Visit Internal Medicine at [facility] [address] [place] [phone] Daryn Garrett MD [facility] DR LILI [place] [address] 01/30/2025 1:30 PM EDT Laboratory Appointment Lab at [facility] Hematology Oncology [address] [place] [phone] 01/30/2025 3:[address] [place] [place] [phone] Arturo Cordero MD [facility] [place] [address] 01/30/2025 4:15 PM EDT Office Visit Hematology [place] [phone] Arturo Cordero MD [facility] [place] [address] Scheduled Procedures Name Priority Associated Diagnoses Date/Ti me EGD, UPPER GI ENDOSCOPY (WRVU 2.09) Irritable bowel syndrome with constipation 08/29/2024 1:00 PM EST COLONOSCOPY, DIAGNOSTIC (WRVU 3.26) Irritable bowel syndrome with constipation 08/29/2024 1:00 PM EST documented as of this encounter Visit Diagnoses Not on filedocumented in this encounter Care Teams Perishable Freight Inspector Relationship Specialty Start Date End Date Luis E Narayan MD [facility] DR LILI [place] [address] PCP - General Family Medicine 01/20/22 07/17/22 documented as of this encounter
--- OUTSIDE RECORDS SUMMARY | 2024-08-20 15:55 | XMS_ITS | Encounter Summary ---
Author Organization [facility] Address [facility] [place] [address] Care Team Providers Care Medical Field Representative Name Role Phone Luis E Narayan MD Primary Care Provider +1 [phone] Encounter Details Date Type Department Care Team [...] 1:00 PM EST Hospital Encounter [place] [phone] Roland Gooden MD [facility] [place] [address] 08/29/2024 1:00 PM EST - 08/29/2024 2:00 PM EST Surgery [place] [phone] Roland Gooden MD [facility] [place] [address] EGD, UPPER GI ENDOSCOPY (WRVU 2.09) 10/02/2024 1:00 PM EDT Office [place] [phone] Juanpablo Hernandez MD [facility] [place] [address] 10/21/2024 9:30 AM EDT Office Visit Internal Medicine at [facility] [address] [place] [phone] Daryn Garrett MD [facility] DR LILI WALKER - [place] [address] 01/30/2025 1:30 PM EDT Laboratory Appointment Lab at [facility] Hematology Oncology [address] [place] [phone] 01/30/2025 3:[address] [place] [phone] Arturo Cordero MD [facility] HEMATOLOGY [place] [address] 01/30/2025 4:15 PM EDT Office Visit Hematology [place] [phone] Arturo Cordero MD [facility] DR HEMATOLOGY [place] [address] Scheduled Procedures Name Priority Associated Diagnoses Date/Ti me EGD, UPPER GI ENDOSCOPY (WRVU 2.09) Irritable bowel syndrome with constipation 08/29/2024 1:00 PM EST COLONOSCOPY, DIAGNOSTIC (WRVU 3.26) Irritable bowel syndrome with constipation 08/29/2024 1:00 PM EST documented as of this encounter Visit Diagnoses Not on filedocumented in this encounter Care Teams Medical Field Representative Relationship Specialty Start Date End Date Luis E Nraayan MD [facility] DR LILI WALKER-[place] [address] PCP - General Family Medicine 01/20/22 07/17/22 documented as of this encounter
--- OUTSIDE RECORDS SUMMARY | 2024-08-20 15:55 | XMS_ITS | Encounter Summary ---
Author Organization [facility] Address [facility] [place] [address] Care Team Providers Care Intermediate Card Tender Name Role Phone Luis E Narayan MD Primary Care Provider +1- [phone] Reason for Visit * Reason Comments Abdominal Pain LLQ, bloating, gas, heartburn, ER last night, CT scan Monday Encounter Details Date Type Department Care Team (Late st Contact Info) Description 06/07/2022 11:00 AM EST Office Visit Family Medicine at [facility] [address] [place] [phone] Tamera Khan, KATHIA [facility] DR LILI WALKER[place] [address] Chest pain, unspecified type; Urinary urgency; Upper abdominal pain; Bloating; Severe obesity; Coronary artery disease involving [place] coronary artery of [place] heart with angina pectoris Social History Tobacco [...] this encounter Progress Notes * Tamera Khan, STOCKLAYER - 06/07/2022 11:00 AM EST Subjective: Patient ID: Alize Gramajo is a 61 y.o. female, presenting for ED follow up Chief Complaint Patient presents with ??? 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 GERD related, [...] 1:00 PM EST Hospital Encounter [place] [phone] Roland Gooden MD [facility] [place] [address] 08/29/2024 1:00 PM EST - 08/29/2024 2:00 PM EST Surgery [place] [phone] Roland Gooden MD [facility] [place] [address] EGD, UPPER GI ENDOSCOPY (WRVU 2.09) 10/02/2024 1:00 PM EDT Office [place] [phone] Juanpablo Hernandez MD [facility] [place] [address] 10/21/2024 9:30 AM EDT Office Visit Internal Medicine at [address] [phone] Daryn Garrett MD [facility] DR LILI WALKER [place] [address] 01/30/2025 1:30 PM EDT Laboratory Appointment Lab at [facility] [place]ology Oncology [address] [place] [phone] 01/30/2025 3:[address] [place] [phone] Arturo Cordero MD [facility] DR HEMATOLOGY [place] [address] 01/30/2025 4:15 PM EDT Office Visit Hematology [place] [phone] Arturo Cordero MD [facility] DR HEMATOLOGY [place] [address] Scheduled Procedures Name Priority Associated Diagnoses Date/Ti [...] dipstick (06/07/2022 12:12 PM EST) POC Sp [place] 1.020 1.002 - 1.030 POC pH, UA [...] (Bezet) 427 ms MUSE SYSTEM Calculated P [place] -2 degrees MUSE SYSTEM Calculated R [place] 22 degrees MUSE SYSTEM Calculated T [place] 45 degrees MUSE SYSTEM INTERPRETATION Normal sinus rhythm Nonspecific T wave abnormality When compared with ECG of 31-MAY-2021 17:16, No significant change was found I personally reviewed the tracing and agree with the fellows interpretation Confirmed by fellow MD Valarie, Molly ([id number]) on 06/07/2022 8:59:36 PM Confirmed by MD Siddhartha, [place] ([id number]) on 06/07/2022 9:09:11 PM MUSE SYSTEM 06/07/2022 12:0 7 PM EST 06/07/2022 9:09 PM EST Tamera Khan APRN ECG ORDERABLES MUSE SYSTEM documented in this encounter Visit Diagnoses Diagnosis Chest pain, unspecified type Urinary urgency Urgency of urination Upper abdominal pain Abdominal pain, other specified site Bloating Flatulence, eructation, and gas pain Severe obesity Morbid obesity Coronary artery disease involving [place] coronary artery of [place] heart with angina pectoris Irritable bowel syndrome with constipation Irritable bowel syndrome documented in this encounter Care Teams Intermediate Card Tender Relationship Specialty Start Date End Date Luis E Narayan MD [facility] [place] [address] PCP - General Family Medicine 01/20/22 07/17/22 documented as of this encounter
--- OUTSIDE RECORDS SUMMARY | 2024-08-20 15:55 | XMS_ITS | Encounter Summary ---
Author Organization [facility] Address [facility] [place] [address] Care Team Providers Care Gear Grinder Name Role Phone Luis E Narayan MD Primary Care Provider +1- [phone] Reason for Visit * Reason Onset Date Comments Medication Refill 05/17/2022 Encounter Details Date Type Department Care Team (Late st Contact Info) Description 05/17/2022 Refill Family Medicine at [facility] [address] [place] [address] Terry Love, TILE MASON [facility] DR LILI WALKER-FAMILY MEDICINE [place], [place] [phone] Social History Tobacco Use Types Packs/Day Years [...] 1:00 PM EST Hospital [place] [phone] Roland Gooden MD [facility] [place] [address] 08/29/2024 1:00 PM EST - 08/29/2024 2:00 PM EST [place] [phone] Roland Gooden MD [facility] [place] [address] EGD, UPPER GI ENDOSCOPY (WRVU 2.09) 10/02/2024 1:00 PM EDT [place] [phone] Juanpablo Hernandez MD [facility] [place] [address] 10/21/2024 9:30 AM EDT Office Visit Internal Medicine at [address] [phone] Daryn Garrett MD [facility] DR LILI WALKER [place] [address] 01/30/2025 1:30 PM EDT Laboratory Appointment Lab at [facility] Hematology Oncology [address] [place] [phone] 01/30/2025 3:[address] [place] [place] [phone] Arturo Cordero MD [facility] HEMATOLOGY [place] [address] 01/30/2025 4:15 PM EDT Office Visit Hematology and Oncology at [facility] [place] [address] Arturo Cordero MD [facility] HEMATOLOGY [place] [address] Scheduled Procedures Name Priority Associated Diagnoses Date/Ti me EGD, UPPER GI ENDOSCOPY (WRVU 2.09) Irritable bowel syndrome with constipation 08/29/2024 1:00 PM EST COLONOSCOPY, DIAGNOSTIC (WRVU 3.26) Irritable bowel syndrome with constipation 08/29/2024 1:00 PM EST documented as of this encounter Visit Diagnoses Not on filedocumented in this encounter Care Teams Gear Grinder Relationship Specialty Start Date End Date Luis E Narayan MD [facility] [address] [place] [address] PCP - General Family Medicine 01/20/22 07/17/22 documented as of this encounter
--- OUTSIDE RECORDS SUMMARY | 2024-08-20 15:56 | XMS_ITS | Encounter Summary ---
Author Organization [facility] Address [facility] [place] [address] Care Team Providers Care Sterilization Specialist Name Role Phone Daryn Garrett MD Primary Care Provider Reason for Visit * Reason Onset Date Comments Medication Refill 03/25/2022 Encounter Details Date Type Department Care Team (Late st Contact Info) Description 03/25/2022 Refill Family Medicine at [facility] [address] [place] [address] Cuate Solis PA [facility] DR LILI WALK[place] [address] Social History Tobacco Use Types Packs/Day Years [...] PM EST Hospital Encounter [place] [phone] Roland Gooden MD [facility] [place] [address] 08/29/2024 1:00 PM EST - 08/29/2024 2:00 PM EST Surgery [place] [phone] Roland Gooden MD [facility] [place] [address] EGD, UPPER GI ENDOSCOPY (WRVU 2.09) 10/02/2024 1:00 PM EDT Office Visit [place] [phone] Juanpablo Hernandez MD [facility] [place] [address] 10/21/2024 9:30 AM EDT Office Visit Internal Medicine at [place] [address] [place] [address] Daryn Garrett MD [facility] [place] [address] 01/30/2025 1:30 PM EDT Laboratory Appointment Lab at [facility] Hematology Oncology [address] [place] [phone] 01/30/2025 3:[address] [place] [phone] Arturo Cordero MD [facility] H[place]ATOLOGY [place] [address] 01/30/2025 4:15 PM EDT Office Visit Hematology [place] [phone] Arturo Cordero MD [facility] H[place]ATOLOGY [place] [address] Scheduled Procedures Name Priority Associated Diagnoses Date/Ti me EGD, UPPER GI ENDOSCOPY (WRVU 2.09) Irritable bowel syndrome with constipation 08/29/2024 1:00 PM EST COLONOSCOPY, DIAGNOSTIC (WRVU 3.26) Irritable bowel syndrome with constipation 08/29/2024 1:00 PM EST documented as of this encounter Visit Diagnoses Not on filedocumented in this encounter Care Teams Sterilization Specialist Relationship Specialty Start Date End Date Daryn Garrett MD [facility] [place] [address] PCP - General 04/10/24 documented as of this encounter
--- OUTSIDE RECORDS SUMMARY | 2024-08-20 15:56 | XMS_ITS | Encounter Summary ---
Author Organization Formerly [facility] Address [facility] [place] [address] Care Team Providers Care Hollow Core Door Frame Assembler Name Role Phone Luis E Narayan MD Primary Care Provider +1- [phone] Reason for Visit * Reason Onset Date Comments Medication Refill 03/25/2022 Encounter Details Date Type Department Care Team (Late st Contact Info) Description 03/25/2022 Refill Family Medicine at [facility] [address] [place] [address] Cuate Solis PA [facility] DR LILI WALKER-[place] [address] Essential hypertension Social History Tobacco Use Types [...] 1:00 PM EST Hospital Encounter [place] [phone] Roland Gooden MD [facility] [place] [address] 08/29/2024 1:00 PM EST - 08/29/2024 2:00 PM EST Surgery [place] [phone] Roland Gooden MD [facility] [place] [address] EGD, UPPER GI ENDOSCOPY (WRVU 2.09) 10/02/2024 1:00 PM EDT Office [place] [phone] Juanpablo Hernandez MD [facility] [place] [address] 10/21/2024 9:30 AM EDT Office Visit Internal Medicine at [address] [phone] Daryn Garrett MD [facility] DR LILI WALKER - [place] [address] 01/30/2025 1:30 PM EDT Laboratory Appointment Lab at [facility] [place]ematology Oncology [address] [place] [phone] 01/30/2025 3:[address] [place] [address] Arturo Cordero MD [facility] DR HEMATOLOGY [place] [address] 01/30/2025 4:15 PM EDT Office Visit Hematology [place] [address] Arturo Cordero MD [facility] DR HEMATOLOGY [place] [address] Scheduled Procedures Name Priority Associated Diagnoses Date/Ti me EGD, UPPER GI ENDOSCOPY (WRVU 2.09) Irritable bowel syndrome with constipation 08/29/2024 1:00 PM EST COLONOSCOPY, DIAGNOSTIC (WRVU 3.26) Irritable bowel syndrome with constipation 08/29/2024 1:00 PM EST documented as of this encounter Visit Diagnoses Diagnosis Essential hypertension Unspecified essential hypertension Irritable bowel syndrome with constipation Irritable bowel syndrome documented in this encounter Care Teams Hollow Core Door Frame Assembler Relationship Specialty Start Date End Date Luis E Narayan MD [facility] [address]-[place] [address] PCP - General Family Medicine 01/20/22 07/17/22 documented as of this encounter
--- OUTSIDE RECORDS SUMMARY | 2024-08-20 15:56 | XMS_ITS | Encounter Summary ---
Author Organization [facility] [place] [address] Care Team Providers Care Foreign Language Professor Name Role Phone Luis E Narayan MD Primary Care Provider +1- [phone] Encounter Details Date Type Department Care Team (Latest Contact Info) Description 03/07/2022 2:01 PM EDT - 03/07/2022 11:59 PM EDT Hospital [place] [address] Bloating; Dyspepsia Discharge Disposition: Home Social History [...] each 11 12/10/2021 02/04/2023 FreeStyle Sanjana 2 [place] MiscIndications:diabetes mellitus 1 each by Other route daily. Indications: diabetes mellitus 1 each 10/26/2021 01/23/2023 FreeStyle Sanjana 2 Sensor KitIndications:diabetes mellitus 1 each by Other route every 14 days. Indications: diabetes mellitus 2 kit 10/26/2021 01/23/2023 FreeStyle Lancets 28 gauge MiscIndications:diabetes mellitus 1 each by Other route 3 times daily. Indications: diabetes mellitus 100 each 11 10/11/2021 06/16/2022 fluticasone propionate (Flonase) 50 mcg/actuation [place], Suspension 1 spray by Each Nare route [...] 1:00 PM EST Hospital Encounter [place] [address] Roland Gooden MD [facility] [place] [address] 08/29/2024 1:00 PM EST - 08/29/2024 2:00 PM EST Surgery [place] [phone] Roland Gooden MD [facility] [place] [address] EGD, UPPER GI ENDOSCOPY (WRVU 2.09) 10/02/2024 1:00 PM EDT Office [place] [phone] Juanpablo Hernandez MD [facility] [place] [address] 10/21/2024 9:30 AM EDT Office Visit Internal Medicine at [facility] [address] [place] [address] Daryn Garrett MD [facility] DR LILI [place] [address] 01/30/2025 1:30 PM EDT Laboratory Appointment Lab at [facility] [place] On[place] [address] [place] [phone] 01/30/2025 3:[address] [place] [address] Arturo Cordero MD [facility] [place] [address] 01/30/2025 4:15 PM EDT Office Visit Hematology [place] [address] Arturo Cordero MD [facility] [place] [address] Scheduled Procedures Name Priority Associated Diagnoses Date/Ti [...] 1 EIA Negative for Shiga Toxin 2 [facility] Stool 03/07/2022 11:2 0 AM EDT 03/07/2022 2:22 PM EDT Narrative Resulting Agency Comment Spec In Lab Alejandra Pop RUCHING MACHINE OPERATOR MICROBIOLOGY - G ENERAL ORDERABLES Performing Organization Address City/[facility]/ZIP Co de Phone Number [facility] [place] [address] * Campylobacter Antigen (03/07/2022 11:20 AM EDT) Campylobacter Ag Immunoassay Negative for Campylobacter Antigen [facility] Stool 03/07/2022 11:2 0 AM EDT 03/07/2022 2:22 PM EDT Narrative Resulting Agency Comment Spec In Lab Alejandra Pop APRN MICROBIOLOGY - G ENERAL ORDERABLES Performing Organization Address [facility] Co de Phone Number [facility] [place] [address] * Stool culture (03/07/2022 11:20 AM EDT) Pathologist [facility] Stool Culture No enteric pathogens isolated [facility] Stool 03/07/2022 11:2 0 AM EDT 03/07/2022 2:22 PM EDT Narrative Resulting Agency Comment Spec In Lab Alejandra Pop APRN MICROBIOLOGY - G ENERAL ORDERABLES Performing Organization Address [facility] Co de Phone Number [facility] [place] [address] documented in this encounter Visit Diagnoses Diagnosis Bloating Flatulence, eructation, and gas pain Dyspepsia Dyspepsia and other specified disorders of function of stomach Irritable bowel syndrome with constipation Irritable bowel syndrome documented in this encounter Care Teams Foreign Language Professor Relationship Specialty Start Date End Date Luis E Narayan MD [facility] DR LILI [place] [address] PCP - General Family Medicine 01/20/22 07/17/22 documented as of this encounter
--- OUTSIDE RECORDS SUMMARY | 2024-08-20 15:56 | XMS_ITS | Encounter Summary ---
Author Organization [facility] [place] [address] Care Team Providers Care Hazardous Materials Tanker Driver Name Role Phone Luis E Narayan MD Primary Care Provider Encounter Details Date Type Department Care Team (Late st Contact Info) Description 03/21/2022 1:09 PM EDT - 03/21/2022 11:59 PM EDT Hospital En[place] [address] Leandra Black, BOOK MENDER [facility] DR [place] [address] Malignant melanoma of conjunctiva, left Discharge Disposition: [...] 1 each 12/10/2021 02/04/2023 FreeStyle Sanjana 2 [place] MiscIndications:diabetes mellitus 1 each by Other route daily. Indications: diabetes mellitus 1 each 10/26/2021 01/23/2023 FreeStyle Sanjana 2 Sensor KitIndications:diabetes mellitus 1 each by Other route every 14 days. Indications: diabetes mellitus 2 kit 10/26/2021 01/23/2023 FreeStyle Lancets 28 gauge MiscIndications:diabetes mellitus 1 each by Other route 3 times daily. Indications: diabetes mellitus 100 each 11 10/11/2021 06/16/2022 fluticasone propionate (Flonase) 50 mcg/actuation [place], Suspension 1 spray by Each Nare route [...] 1:00 PM EST Hospital Encounter Gastroenterology at [place] [phone] Roland Gooden MD [facility] [place] [address] 08/29/2024 1:00 PM EST - 08/29/2024 2:00 PM EST Surgery [place] [phone] Roland Gooden MD [facility] [place] [address] EGD, UPPER GI ENDOSCOPY (WRVU 2.09) 10/02/2024 1:00 PM EDT Office Visit Ophthalmology at [place] [phone] Juanpablo Hernandez MD [facility] [place] [address] 10/21/2024 9:30 AM EDT Office Visit Internal Medicine at [facility] [address] [place] [address] Daryn Garrett MD [facility] DR LILI [place] [address] 01/30/2025 1:30 PM EDT Laboratory Appointment Lab at [facility] Hematology Oncology [address] [place] [phone] 01/30/2025 3:[address] [place] [phone] Arturo Cordero MD [facility] DR [place] [address] 01/30/2025 4:15 PM EDT Office Visit Hematology [place] [phone] Arturo Cordero MD [facility] DR [place] [address] Scheduled Procedures Name Priority Associated Diagnoses Date/Ti [...] Electronically signed by: Roland Izaguirre MD, [facility] ([phone]), at 03/21/2022 1:56 PM Thank you for letting us participate in the care of this patient. If you are a health care provider and have any questions regarding this report, please contact the number above. For patients who have questions, please contact the health rn homecare that requested your imaging first. ? Roland Izaguirre, Staff Physician Electronically Signed Final Report ?? 03/21/2022 02:04 pm Narrative 03/21/2022 2:05 PM EDT Ultrasound Lymph Node ? (Signed Final 03/21/2022 02:04 pm) Report PATIENT INFO: ID #: ? [id number] ?: ??58 (61 yrs)(F) Name: ? PATIENCE MANJARREZ ? Visit Date: 03/21/2022 01:33 pm PERFORMED BY: Performed By: ? Stephany Pittman RDMS Attending: ?Dmitriy COLVIN, Roland Fung Resident: ? Rojelio COLVIN, Gia Davalos Referred By: ?LEANDRA BLACK Location: ? [place] SERVICE(S) PROVIDED: USTN - Soft Tissue Neck or Head - [id number] ? [id number] INDICATIONS: History of left eye conjunctival melanoma s/p resection, [facility] imaging of left neck [place] --------- FINDINGS: --------- Title: ? Ultrasound Lymph Node Report Findings: ?Several visualized lymph nodes, largest measures ?1.6 cm left level 2. Procedure Note Roland Izaguirre MD - 03/21/2022 Ultrasound Lymph Node (Signed Final 03/21/2022 02:04 pm) Report PATIENT INFO: ID #: [id number] : 58 (61 yrs)(F) Name: PATIENCE MANJARREZ Visit Date: 03/21/2022 01:33 pm PERFORMED BY: Performed By: Stephany Pittman RDMS Attending: Roland Izaguirre MD Resident: Gia Serrato MD Referred By: LEANDRA BLACK Location: [place] SERVICE(S) PROVIDED: USTN - Soft Tissue Neck or Head - [id number] INDICATIONS: History of left eye conjunctival melanoma [...] Electronically signed by: Roland Izaguirre MD, [facility] ([phone]), at 03/21/2022 1:56 PM Thank you for letting us participate in the care of this patient. If you are a health care provider and have any questions regarding this report, please contact the number above. For patients who have questions, please contact the health rn homecare that requested your imaging first. Roland Izaguirre, Staff Physician Electronically Signed Final Report 03/21/2022 02:04 pm Leandra Black APRN IMG US GEN ORDERAB LES documented in this encounter Visit Diagnoses Diagnosis Malignant melanoma of conjunctiva, left Irritable bowel syndrome with constipation Irritable bowel syndrome documented in this encounter Care Teams Hazardous Materials Tanker Driver Relationship Specialty Start Date End Date Luis E Narayan MD [facility] DR LILI [place] [address] PCP - General Family Medicine 01/20/22 07/17/22 documented as of this encounter
--- OUTSIDE RECORDS SUMMARY | 2024-08-20 15:56 | XMS_ITS | Encounter Summary ---
Author Organization [facility] Address [facility] [place] [address] Care Team Providers Care Grinding And Polishing Laborer Name Role Phone Luis E Narayan MD Primary Care Provider +1- [phone] Reason for Visit * Reason Onset Date Comments Medication Refill 01/29/2022 Encounter Details Date Type Department Care Team (Late st Contact Info) Description 01/29/2022 Refill Family Medicine at [facility] [address] [place] [address] Luis E Narayan MD [facility] DR LILI [place] [address] Social History Tobacco Use Types Packs/Day Years [...] (Latest Contact Info) Description 08/29/2024 1:00 PM [facility] Hospital Encounter [place] [phone] Roland Gooedn MD [facility] [place] [address] 08/29/2024 1:00 PM EST - 08/29/2024 2:00 PM EST Surgery Gastroenterology at [place] [phone] Roland Gooden MD [facility] [place] [address] EGD, UPPER GI ENDOSCOPY (WRVU 2.09) 10/02/2024 1:00 PM EDT Office Visit Ophthalmology at [place] [phone] Juanpablo Hernandez MD [facility] [address] 10/21/2024 9:30 AM EDT Office Visit Internal Medicine at [address] [phone] Daryn Garrett MD [facility] DR LILI [place] [address] 01/30/2025 1:30 PM EDT Laboratory Appointment Lab at [facility] [place] [address] [place], [place] [phone] 01/30/2025 3:[address] Scan at [place] [phone] Arturo Cordero MD [facility] [place] [address] 01/30/2025 4:15 PM EDT Office Visit Hematology and Oncology at [place] [phone] Arturo Cordero MD [facility] [place] [address] Scheduled Procedures Name Priority Associated Diagnoses Date/Ti me EGD, UPPER GI ENDOSCOPY (WRVU 2.09) Irritable bowel syndrome with constipation 08/29/2024 1:00 PM EST COLONOSCOPY, DIAGNOSTIC (WRVU 3.26) Irritable bowel syndrome with constipation 08/29/2024 1:00 PM EST documented as of this encounter Visit Diagnoses Not on filedocumented in this encounter Care Teams Grinding And Polishing Laborer Relationship Specialty Start Date End Date Luis E Narayan MD [facility] [address] [place] [address] PCP - General Family Medicine 01/20/22 07/17/22 documented as of this encounter
--- OUTSIDE RECORDS SUMMARY | 2024-08-20 15:56 | XMS_ITS | Encounter Summary ---
Author Organization [facility] Address [facility] [place] [address] Care Team Providers Care Natural Resources Instructor Name Role Phone Luis E Narayan MD Primary Care Provider +1- [phone] Reason for Visit * Reason Onset Date Comments Medication Refill 02/11/2022 Encounter Details Date Type Department Care Team (Late st Contact Info) Description 02/11/2022 Refill Family Medicine at [facility] [address] [place] [phone] Luis E Narayan MD [facility] DR LILI [place] [address] Type 2 diabetes mellitus without long-term current [...] 1:00 PM EST Hospital Encounter Gastroenterology at [place] [phone] Roland Gooden MD [facility] [place] [address] 08/29/2024 1:00 PM EST - 08/29/2024 2:00 PM EST [place] [phone] Roland Gooden MD [facility] [place] [address] EGD, UPPER GI ENDOSCOPY (WRVU 2.09) 10/02/2024 1:00 PM EDT Office [place] [phone] Juanpablo Hernandez MD [facility] [place] [address] 10/21/2024 9:30 AM EDT Office Visit Internal Medicine at [place] [address] [place] [address] Daryn Garrett MD [facility] DR LILI [place] [address] 01/30/2025 1:30 PM EDT Laboratory Appointment Lab at [facility] [place] [address] [place] [phone] 01/30/2025 3:[address] [place] [phone] Arturo Cordero MD [facility] [place] [address] 01/30/2025 4:15 PM EDT Office Visit Hematology [place] [address] Arturo Cordero MD [facility] [place] [address] Scheduled Procedures Name Priority Associated Diagnoses Date/Ti [...] syndrome documented in this encounter Care Teams Natural Resources Instructor Relationship Specialty Start Date End Date Luis E Narayan MD [facility] DR LILI [place] [address] PCP - General Family Medicine 01/20/22 07/17/22 documented as of this encounter
--- OUTSIDE RECORDS SUMMARY | 2024-08-20 15:56 | XMS_ITS | Encounter Summary ---
Author Organization [place] [address] Care Team Providers Care Curator Horticultural Museum Name Role Phone Luis E Narayan MD Primary Care Provider +1- [phone] Reason for Referral * Consultation (Routine) - Closed Specialty Diagnoses / Procedures Referred By Gonzalez kumari Referred To Contact Weight and Wellness Diagnoses Diarrhea, unspecified type Obesity, unspecified classification, unspecified obesity type, unspecified whether serious comorbidity present Kelsey Pacheco DO [address] [place] [address] [address] [place] [address] [facility] [address] [place] [address] Referral ID Status Reason Start Date Expiration Date V isits Requested Visits Authorized [id number] Closed Consult, Test & Treat PCP Updated and/or Approved 01/20/2022 01/20/2023 1 1 Encounter Details Date Type Department Care Team (Late st Contact Info) Description 01/20/2022 Transcribe Orders eDH Incoming Referrals [phone] Kelsey Pacheco DO [address] [place] [address] [address] [place], [place] [id number] Diarrhea, unspecified type; Obesity, unspecified classification, unspecified [...] (Latest Contact Info) Description 08/29/2024 1:00 PM [facility] Hospital Encounter [place] [address] Roland Gooden MD [facility] [place] [address] 08/29/2024 1:00 PM EST - 08/29/2024 2:00 PM EST Surgery Gastroenterology at [place] [phone] Roland Gooden MD [facility] [place] [address] EGD, UPPER GI ENDOSCOPY (WRVU 2.09) 10/02/2024 1:00 PM EDT Office Visit Ophthalmology at [place] [phone] Juanpablo Hernandez MD [facility] [address] 10/21/2024 9:30 AM EDT Office Visit Internal Medicine at [address] [phone] Daryn Garrett MD [facility] DR LILI [place] [address] 01/30/2025 1:30 PM EDT Laboratory Appointment Lab at [facility] Hematology Oncology [address] [place], [place] [phone] 01/30/2025 3:[address] Scan at [place] [phone] Arturo Cordero MD [facility] [place] [address] 01/30/2025 4:15 PM EDT Office Visit Hematology and Oncology at [place] [phone] Arturo Cordero MD [facility] [place] [address] Scheduled Procedures Name Priority Associated Diagnoses Date/Ti [...] syndrome documented in this encounter Care Teams Curator Horticultural Museum Relationship Specialty Start Date End Date Luis E Narayan MD [facility] DR LILI [place] [address] PCP - General Family Medicine 01/20/22 07/17/22 documented as of this encounter
--- OUTSIDE RECORDS SUMMARY | 2024-08-20 15:56 | XMS_ITS | Encounter Summary ---
Author Organization [facility] Address [facility] [place] [address] Care Team Providers Care Screw Machine Set Up Operator Name Role Phone Luis E Narayan MD Primary Care Provider +1- [phone] Reason for Visit * Reason Comments Follow-up Encounter Details Date Type Department Care Team (Late st Contact Info) Description 04/12/2022 1:00 PM EDT Office Visit Family Medicine at [facility] [address] [place] [address] Suzanne Martinez APRN [facility] DR LILI [place] [address] Acute upper respiratory infection; Frequency of micturition; [...] emergency room visits near her home in [facility]. On 03/28, she wasprescribed Augmentin [...] Diagnosis Code ??? 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 Altered [...] (Latest Contact Info) Description 08/29/2024 1:00 PM [facility] Hospital En[place] [address] Roland Gooden MD [facility] [place] [address] 08/29/2024 1:00 PM EST - 08/29/2024 2:00 PM EST Surgery Gastroenterology at [place] [phone] Roland Gooden MD [facility] [place] [address] EGD, UPPER GI ENDOSCOPY (WRVU 2.09) 10/02/2024 1:00 PM EDT Office Visit Ophthalmology at [place] [phone] Juanpablo Hernandez MD [facility] [address] 10/21/2024 9:30 AM EDT Office Visit Internal Medicine at [address] [phone] Daryn Garrett MD [facility] DR LILI [place] [address] 01/30/2025 1:30 PM EDT Laboratory Appointment Lab at [facility] Hematology Oncology [address] [place], [place] [phone] 01/30/2025 3:[address] [place] [phone] Arturo Cordero MD [facility] [place] [address] 01/30/2025 4:15 PM EDT Office Visit Hematology [place] [phone] Arturo Cordero MD [facility] [place] [address] Scheduled Procedures Name Priority Associated Diagnoses Date/Ti [...] Hemoglobin A1c 9.2(H) 4.3 - 5.6 % [facility] [...] Mellitus, Diabetes Care 2013; 36: Suppl. 1, A27-27 Estimated Average Glucose 217 mg/dL [facility] Comment: [...] into estimated average glucose values. ??Diabetes Care 2008:31(8):0319-0444. Blood 04/12/2022 2:20 PM EDT 04/12/2022 4:10 PM EDT Narrative Resulting Agency Comment Spec In Lab Suzanne Martinez APRN CHEMISTRY ORDERABL ES [facility] [place] [address] * (ABNORMAL) Comprehensive metabolic panel (non-fasting) (04/12/2022 2:20 PM EDT) Glucose 278(H) 65 - 199 mg/dL [facility] Comment:Diabetes: >=200 mg/d L plus symptoms Blood Urea Nitrogen 11 8 - 18 mg/dL [facility] Creatinine 0.96 0.70 - 1.20 mg/dL [facility] Sodium 138 135 - 145 mmol/L [facility] Potassium 4.5 3.5 - 5.0 mmol/L [facility] Comment: Please note: ??Patients with WBC >100,000 may have falsely elevated Potassium levels. ??For accurate Potassium quantification in these patients send serum separator tube (gold top) for subsequent determinations. ??Contact the Clinical Chemistry Laboratory if there are any questions. Chloride 99 98 - 107 mmol/L [facility] Carbon Dioxide 27 22 - 31 mmol/L [facility] Anion Gap 12 5 - 15 mmol/L [facility] Calcium 10.0 8.5 - 10.5 mg/dL [facility] Protein, Total 6.9 6.1 - 8.0 g/dL [facility] Albumin 4.1 3.2 - 5.2 g/dL [facility] Aspartate Aminotransferase 18 0 - 30 unit/L [facility] Alanine Aminotransferase 27 0 - 30 unit/L [facility] Alkaline Phosphatase 104 35 - 105 unit/L [facility] Bilirubin, Total 0.6 0.2 - 1.3 mg/dL [facility] Est Glomerular Filtration Rate 67 >=60 mL/min/1. 73 m?? [facility] Comment: This patient's estimated GFR [...] Lab Suzanne Martinez APRN CHEMISTRY ORDERABL ES [facility] [place] [address] * (ABNORMAL) POCT urine dipstick (04/12/2022 1:50 PM EDT) POC Sp [place] 1.015 1.002 - 1.030 POC pH, UA [...] with reflex Culture (04/12/2022 1:30 PM EDT) [facility] Glucose, Urine Dipstick >=1000(Criti mariann) Negative mg/dL [facility] Comment: Urinalysis result NOT critical without a combination of Glucose greater than or equal to 500 mg/dL AND Ketones greater than or equal to 80 mg/dL Protein, Urine Dipstick Negative Negative mg/dL [facility] Leukocytes, Urine Dipstick Negative Negative [facility] Appearance, Urine Dipstick Clear Clear [facility] Specific [place] Urine Automated 1.024 1.005 - 1.030 [facility] Color, Urine Dipstick Yellow Yellow [facility] Reflex to Culture No [facility] Clean Catch Urine 04/12/2022 1:30 PM EDT 04/12/2022 6:54 PM EDT Narrative Resulting Agency Comment Spec In Lab Suzanne Martinez PHOTOGRAPHER NEWS URINE ORDERABLES [facility] [place] [address] documented in this encounter Visit Diagnoses Diagnosis Acute upper respiratory infection Acute upper respiratory infections of unspecified site Frequency of micturition Urinary frequency Lower abdominal pain Abdominal pain, other specified site Type 2 diabetes mellitus with hyperglycemia, without long-term current use of insulin Ear pain, bilateral Oral thrush Candidiasis of mouth Intertrigo Other specified erythematous condition Irritable bowel syndrome with constipation Irritable bowel syndrome documented in this encounter Care Teams Screw Machine Set Up Operator Relationship Specialty Start Date End Date Luis E Narayan MD [facility] DR LILI [place] [address] PCP - General Family Medicine 01/20/22 07/17/22 documented as of this encounter
--- OUTSIDE RECORDS SUMMARY | 2024-08-20 15:56 | XMS_ITS | Encounter Summary ---
Author Organization [facility] [place] [address] Care Team Providers Care Gas Engine Performance Engineer Name Role Phone Luis E Narayan MD Primary Care Provider [phone]- [phone] Encounter Details Date Type Department Care Team (Latest Contact Info) Description 03/06/2022 2:02 PM EDT - 03/06/2022 11:59 PM EDT Hospital [place] [address] Bloating; Dyspepsia Discharge Disposition: Home Social History [...] each 11 12/10/2021 02/04/2023 FreeStyle Sanjana 2 [place] MiscIndications:diabetes mellitus 1 each by Other route daily. Indications: diabetes mellitus 1 each 10/26/2021 01/23/2023 FreeStyle Sanjana 2 Sensor KitIndications:diabetes mellitus 1 each by Other route every 14 days. Indications: diabetes mellitus 2 kit 10/26/2021 01/23/2023 FreeStyle Lancets 28 gauge MiscIndications:diabetes mellitus 1 each by Other route 3 times daily. Indications: diabetes mellitus 100 each 11 10/11/2021 06/16/2022 fluticasone propionate (Flonase) 50 mcg/actuation [place], Suspension 1 spray by Each Nare route [...] 1:00 PM EST Hospital [place] [address] Roland Gooden MD [facility] [place] [address] 08/29/2024 1:00 PM EST - 08/29/2024 2:00 PM EST [place] [phone] Roland Gooden MD [facility] [place] [address] EGD, UPPER GI ENDOSCOPY (WRVU 2.09) 10/02/2024 1:00 PM EDT Office [place] [phone] Juanpablo Hernandez MD [facility] [place] [address] 10/21/2024 9:30 AM EDT Office Visit Internal Medicine at [facility] [address] [place] [address] Daryn Garrett MD [facility] [place] [address] 01/30/2025 1:30 PM EDT Laboratory Appointment Lab at [facility] Hematology Oncology [address] [place] [phone] 01/30/2025 3:[address] [place] [address] Arturo Cordero MD [facility] [place] [address] 01/30/2025 4:15 PM EDT Office Visit [place] [address] Arturo Cordero MD [facility] [place] [address] Scheduled Procedures Name Priority Associated Diagnoses Date/Ti me EGD, UPPER GI ENDOSCOPY (WRVU 2.09) Irritable bowel syndrome with constipation 08/29/2024 1:00 PM EST COLONOSCOPY, DIAGNOSTIC (WRVU 3.26) Irritable bowel syndrome with constipation 08/29/2024 1:00 PM EST documented as of this encounter Procedures Procedure Name Priority Date/Time Associated Diagnosis Comments CRYPTOSPORIDIUM OOCYST ANTIGEN ([facility]/CGP/APD) Routine 03/07/2022 9:37 AM EDT Bloating Dyspepsia HC GIARDIA ANTIGEN ELOY METHOD Routine 03/07/2022 9:37 AM EDT Bloating Dyspepsia GIARDIA ANTIGEN ([facility]/CGP/APD/NL) Routine 03/07/2022 9:37 AM EDT Bloating Dyspepsia documented in this encounter Results * Cryptosporidium Oocyst Antigen ([facility]/CGP/APD) (03/07/2022 9:37 AM EDT) Cryptosporidium Antigen Negative Negative [facility] Stool 03/07/2022 9:37 AM EDT 03/07/2022 2:21 PM EDT Narrative Resulting Agency Comment Spec In Lab Alejandra Pop TECHNICAL SERVICES ASSISTANT MICROBIOLOGY - G ENERAL ORDERABLES Performing Organization Address City/[facility]/ZIP Co de Phone Number [facility] [place] [address] * Giardia antigen ([facility]/CGP/APD/NLH) (03/07/2022 9:37 AM EDT) Giardia Antigen Negative Negative [facility] Comment:Examination for othe r intestinal parasites requires foreign travel history. Stool 03/07/2022 9:37 AM EDT 03/07/2022 2:21 PM EDT Narrative Resulting Agency Comment Spec In Lab Alejandra Pop TECHNICAL SERVICES ASSISTANT MICROBIOLOGY - G ENERAL ORDERABLES Performing Organization Address City/[facility] Co de Phone Number [facility] [place] [address] documented in this encounter Visit Diagnoses Diagnosis Bloating Flatulence, eructation, and gas pain Dyspepsia Dyspepsia and other specified disorders of function of stomach Irritable bowel syndrome with constipation Irritable bowel syndrome documented in this encounter Care Teams Gas Engine Performance Engineer Relationship Specialty Start Date End Date Luis E Narayan MD [facility] [address] [place] [address] PCP - General Family Medicine 01/20/22 07/17/22 documented as of this encounter
--- OUTSIDE RECORDS SUMMARY | 2024-08-20 15:56 | XMS_ITS | Encounter Summary ---
Author Organization [facility] Address [facility] [place] [address] Care Team Providers Care Lumber Grader Name Role Phone Luis E Narayan MD Primary Care Provider +1- [phone] Encounter Details Date Type Department Care Team (Late st Contact Info) Description 03/21/2022 Telephone Hematology [place] [address] Leandra Lopes, FIELD TECHNICAL SPECIALIST [facility] HEMATOLOGY [place] [address] Social History Tobacco Use Types Packs/Day Years [...] new symptoms or concerns. Leandra Lopes DNP, FIELD TECHNICAL SPECIALIST documented in this encounter Plan of Treatment Upcoming Encounters Date Type Department Care Team (Latest Contact Info) Description 08/29/2024 1:00 PM EST Hospital Encounter [place] [address] Roland Gooden MD [facility] [place] [address] 08/29/2024 1:00 PM EST - 08/29/2024 2:00 PM EST [place] [phone] Roland Gooden MD [facility] [place] [address] EGD, UPPER GI ENDOSCOPY (WRVU 2.09) 10/02/2024 1:00 PM EDT Office [place] [address] Juanpablo Hernandez MD [facility] [place] [address] 10/21/2024 9:30 AM EDT Office Visit Internal Medicine at [address] [phone] Daryn Garrett MD [facility] [place] [address] 01/30/2025 1:30 PM EDT Laboratory Appointment Lab at [facility] Hematology Oncology [address] [place] [phone] 01/30/2025 3:[address] [place] [address] Arturo Cordero MD [facility] HEMATOLOGY [place] [address] 01/30/2025 4:15 PM EDT Office Visit Hematology [place] [address] Arturo Cordero MD [facility] HEMATOLOGY AND ONCOLOGY [place], [place] [phone] Scheduled Procedures Name Priority Associated Diagnoses Date/Ti me EGD, UPPER GI ENDOSCOPY (WRVU 2.09) Irritable bowel syndrome with constipation 08/29/2024 1:00 PM EST COLONOSCOPY, DIAGNOSTIC (WRVU 3.26) Irritable bowel syndrome with constipation 08/29/2024 1:00 PM EST documented as of this encounter Visit Diagnoses Not on filedocumented in this encounter Care Teams Lumber Grader Relationship Specialty Start Date End Date Luis E Narayan MD [facility] DR LILI W[place] [address] PCP - General Family Medicine 01/20/22 07/17/22 documented as of this encounter
--- OUTSIDE RECORDS SUMMARY | 2024-08-20 15:56 | XMS_ITS | Encounter Summary ---
Author Organization [facility] Address [facility] [place] [address] Care Team Providers Care Pattern Attendant Name Role Phone Luis E Narayan MD Primary Care Provider [phone]- [phone] Reason for Visit * Reason Onset Date Comments Other 04/07/2022 Order Issues Encounter Details Date Type Department Care Team (Late st Contact Info) Description 04/07/2022 Telephone Family Medicine at [facility] [address] [place] [phone] Luis E Narayan MD [facility] DR LILI [place] [address] Other (Order Issues) Social History Tobacco Use [...] EDT Order signed by COS. Faxed to [facility] along with associated documents * Telephone Encounter - Alejandra Posadas RN - 04/08/2022 6:52 AM EDT Prepped/pended DME that will print for faxing. Need Physician or ESTHELA signature. Needs to be faxed to [facility] along with demographics and office notes from 04/05/22. * Telephone Encounter - Luis E Narayan MD - 04/07/2022 8:34 PM EDT Hi S3 RN team - Can you see what needs to be ordered, pend, and sent to COS or covering provider? I will not be in eDH to sign. Thanks rosmery * Telephone Encounter - ReideduardoDixon Franchesca - 04/07/2022 10:07 AM EDT Message: Ani from [facility] calling in regards to orders received for Nebulizer. She statesshe just needs provider to also send in prescription for supplies along with it. Please call with questions/concerns Ask caller their first and last name and relationship to the [facility] Best time to call back: Any Ok to leave a message: Yes Ok to send my- message: x Offered Appointment: x MA/Nurse/Seeley contacted via: Message: Yes Call: x Pager: [phone] documented in this encounter Plan of Treatment Upcoming Encounters Date Type Department Care Team (Latest Contact Info) Description 08/29/2024 1:00 PM EST Hospital Encounter Gastroenterology at [place] [phone] Roland Gooden MD [facility] [place] [address] 08/29/2024 1:00 PM EST - 08/29/2024 2:00 PM EST Surgery Gastroenterology at [place] [phone] Roland Gooden MD [facility] [place] [address] EGD, UPPER GI ENDOSCOPY (WRVU 2.09) 10/02/2024 1:00 PM EDT Office Visit Ophthalmology at [place] [phone] Juanpablo Hernandez MD [facility] OPHTHALMOLOGY [place] [phone] 10/21/2024 9:30 AM EDT Office Visit Internal Medicine at [facility] [address] [place] [address] Daryn Garrett MD [facility] DR LILI [place] [address] 01/30/2025 1:30 PM EDT Laboratory Appointment Lab at [facility] Hematology Oncology [address] [place] [phone] 01/30/2025 3:[address] [place] [phone] Arturo Cordero MD [facility] DR H[place]AT[place] [address] 01/30/2025 4:15 PM EDT Office Visit Hematology [place] [address] Arturo Cordero MD [facility] DR [place] [address] Scheduled Procedures Name Priority Associated Diagnoses Date/Ti me EGD, UPPER GI ENDOSCOPY (WRVU 2.09) Irritable bowel syndrome with constipation 08/29/2024 1:00 PM EST COLONOSCOPY, DIAGNOSTIC (WRVU 3.26) Irritable bowel syndrome with constipation 08/29/2024 1:00 PM EST documented as of this encounter Visit Diagnoses Diagnosis Simple chronic bronchitis Irritable bowel syndrome with constipation Irritable bowel syndrome documented in this encounter Care Teams Pattern Attendant Relationship Specialty Start Date End Date Luis E Narayan MD [facility] DR LILI [place] [address] PCP - General Family Medicine 01/20/22 07/17/22 documented as of this encounter
--- OUTSIDE RECORDS SUMMARY | 2024-08-20 15:56 | XMS_ITS | Encounter Summary ---
Author Organization [facility] Address [facility] Siri [place] [address] Care Team Providers Care Dredge Master Name Role Phone Luis E Narayan MD Primary Care Provider [phone]- [phone] Reason for Visit * Reason Comments Follow-up f/u from hospital vi sit Encounter Details Date Type Department Care Team (Late st Contact Info) Description 04/05/2022 11:30 AM EDT Office Visit Family Medicine at [facility] [address] [place] [address] Earl Valdez MD [facility] [address] [place] [address] Frequency of micturition; COPD; Yeast vaginitis Social [...] emergency room visits near her home in [facility]. On 03/28, she was prescribed Augmentin [...] Diagnosis Code ??? 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 Altered [...] each, Rfl: 11 ??? FreeStyle Sanjana 2 [place] Misc, 1 each by Other route daily. [...] 11 ??? fluticasone propionate (Flonase) 50 mcg/actuation [place], Suspension, 1 spray by Each Nare route2 [...] will send a prescription for this to [facility] in [facility]. She will continue on these current medications [...] a total of at least 30 minutes (11558) providing this patient's care. This includes time spent [id number] with the patient performing evaluation, examination, and counseling . It also includes non [id number] time preparing to see the patient, coordinating care, and documenting clinical information in the electronic health record. documented in this encounter Plan of Treatment Upcoming Encounters Date Type Department Care Team (Latest Contact Info) Description 08/29/2024 1:00 PM [facility] Hospital [place] [address] Roland Gooden MD [facility] [place] [address] 08/29/2024 1:00 PM EST - 08/29/2024 2:00 PM EST Surgery Gastroenterology at [address] Roland Gooden MD [facility] [place] [address] EGD, UPPER GI ENDOSCOPY (WRVU 2.09) 10/02/2024 1:00 PM EDT Office Visit Ophthalmology at [place] [phone] Juanpablo Hernandez MD [facility] [place] [address] 10/21/2024 9:30 AM EDT Office Visit Internal Medicine at [address] [address] Daryn Garrett MD [facility] [place] [address] 01/30/2025 1:30 PM EDT Laboratory Appointment Lab at [facility] Hematology Oncology [address] [place], [place] [phone] 01/30/2025 3:[address] Scan at [place] [phone] Arturo Cordero MD [facility] [place] [address] 01/30/2025 4:15 PM EDT Office Visit Hematology and Oncology at [place] [phone] Arturo Cordero MD [facility] [address] [place] [address] (work) Scheduled Procedures Name Priority Associated Diagnoses Date/Ti [...] coli 1,000-9,000 cfu/ml mixed mucosal nimisha (A) [facility] Organism Escherichia coli(A) [facility] Urine NS 04/05/2022 12:4 1 [...] Valdez MD MICROBIOLOGY - GENER AL ORDERABLES Performing Organization Address City/[facility]/ZIP Co de Phone Number [facility] [place] [address] * (ABNORMAL) Urinalysis Microscopic Exam (04/05/2022 12:41 PM EDT) RBC, Urine 3 0 - 4 /HPF [facility] WBC, Urine 10(H) 0 - 5 /HPF [facility] Bacteria, Urine Rare(A) None /HPF [facility] Squamous Epithelial Cells Raw Data, Urine 2 <=4 /HPF [facility] Urine NS 04/05/2022 12:4 1 PM EDT 04/05/2022 4:36 PM EDT Narrative Resulting Agency Comment Spec In Lab Earl Valdez MD URINE ORDERABLES Performing Organization Address [facility]/ZIP Co de Phone Number [facility] [place] [address] * (ABNORMAL) Urinalysis with reflex Culture (04/05/2022 12:41 PM EDT) Glucose, Urine Dipstick 100(A) Negative mg/dL [facility] Protein, Urine Dipstick Negative Negative mg/dL [facility] Bilirubin, Urine Dipstick Negative Negative mg/dL [facility] Comment: Clinical correlation required for positive Urine Bilirubin results as false positive may occur with some drugs and drug related products. If a false positive is suspected a serum total bilirubin should be considered if clinically indicated. Urobilinogen, Urine Dipstick Normal Normal mg/dL [facility] pH, Urn (dipstick) 5.5 5.0 - 8.0 [facility] Blood, Urine Dipstick Negative Negative mg/dL [facility] Ketone, Urine Dipstick Negative Negative mg/dL [facility] Nitrite, Urine Dipstick Negative Negative [facility] Leukocytes, Urine Dipstick Moderate(A) Negative [facility] Appearance, Urine Dipstick Clear Clear [facility] Specific Lucile Urine Automated 1.011 1.005 - 1.030 [facility] Color, Urine Dipstick Yellow Yellow [facility] Reflex to Culture Yes [facility] Urine NS 04/05/2022 12:4 1 PM EDT 04/05/2022 4:36 PM EDT Narrative Resulting Agency Comment Spec In Lab Earl Valdez MD URINE ORDERABLES [facility] [place] [address] documented in this encounter Visit Diagnoses Diagnosis Frequency of micturition Urinary frequency COPD Simple chronic bronchitis Yeast vaginitis Candidiasis of vulva and vagina Irritable bowel syndrome with constipation Irritable bowel syndrome documented in this encounter Care Teams Dredge Master Relationship Specialty Start Date End Date Luis E Narayan MD [facility] [address] LILI [place] [address] PCP - General Family Medicine 01/20/22 07/17/22 documented as of this encounter
--- OUTSIDE RECORDS SUMMARY | 2024-08-20 15:56 | XMS_ITS | Encounter Summary ---
[place] [address] Care Team Providers Care Cheese Cutter Name Role Phone Luis E Narayan MD Primary Care Provider Reason for Referral * Diagnostic Test (Routine) - Closed Specialty Diagnoses / Procedures Referred By Gonzalez kumari Referred To Contact Gastroenterology Diagnoses Bloating Dyspepsia HBT - glucose - bloating Procedures Breath Hydrogen Test HBT - glucose - bloating Alejandra Pop APRN [address] [place] [address] [facility] [address] [place] [id number] Referral ID Status Reason Start Date Expiration Date V isits Requested Visits Authorized [id number] Closed Consult, Test & Treat 03/01/2022 03/01/2023 1 1 * Diagnostic Test (Routine) - Closed Specialty Diagnoses / Procedures Referred By Gonzalez kumari Referred To Contact Gastroenterology Diagnoses Bloating Dyspepsia Smartpill for nausea Procedures SmartPill Smartpill for nausea Alejandra Pop APRN [address] [place] [address] [facility] [address] [place] [id number] Referral ID Status Reason Start Date Expiration Date V isits Requested Visits Authorized [id number] Closed Consult, Test & Treat 03/01/2022 03/01/2023 1 1 Reason for Visit * Consultation (Routine) - Closed Specialty Diagnoses / Procedures Referred By Contac t Referred To Contact Gastroenterology Diagnoses NAFL (nonalcoholic fatty liver) /abd pain/bloating - see Luis E Saba MD [facility] DR LILI [place] [address] [facility] [address] [place] [address] Referral ID Status Reason Start Date Expiration Date V isits Requested Visits Authorized [id number] Closed Consult, Test & Treat 12/15/2021 12/15/2022 1 1 Encounter Details Date Type Department Care Team (Late st Contact Info) Description 03/01/2022 3:00 PM EDT Office [place] [address] Alejandra Pop, P[employer]ER [address] [place] [address] Bloating; Dyspepsia Social History Tobacco [...] desk 3L on the main campus of [facility] in [place] or may report to [facility] 8. Smart pill. You will hear from our roof truss builder to set this up once an appointment becomes available. You should hear from someone within one week. If not please call us. If insurance doesn't cover the smart pill, I will ask you to do a gastric emptying scan instead. We will let you know. Please call radiology at to schedule. 9. Hydrogen breath test. You will hear from our roof truss builder to set this up once an appointment [...] spacer 1 each ??? FreeStyle Sanjana 2 [place] Misc 1 each by Other route daily. Indications: diabetes mellitus 1 each 0 ??? FreeStyle Sanjana 2 Sensor Kit 1 each by Other route every 14 days. Indications: diabetes mellitus 2 kit 0 ??? FreeStyle Lancets 28 gauge Misc 1 each by Other route 3 times daily. Indications: diabetes mellitus 100 each 11 ??? fluticasone propionate (Flonase) 50 mcg/actuation [place], Suspension 1 spray by Each Nare route [...] antithrombotic long-term use, Arthritis, Asthma, Atherosclerosis of havasupai coronary artery of havasupai heart with angina pectoris (10/09/2007), CAD (coronary [...] Coronary angioplasty with stent; Lap, Partial Nephrectomy (97711) (Left, 06/28/2019); Excis Cornea Lesn (78225) (Left, 05/14/2020); Destr Corneal Lesn, Cryo, Photo, Therm (68454) (Left, 05/14/2020); PlaceAmniotic Membrane Ocular Surface;Single Layer Sutured (98664) (Left, 05/14/2020); laser surgery; andcryopexy (Left). Family [...] after testing is complete Alejandra Pop APRN [facility] [place] [phone] documented in this encounter Plan of Treatment Upcoming Encounters Date Type Department Care Team (Latest Contact Info) Description 08/29/2024 1:00 PM EST Hospital Encounter [place] [phone] Roland Gooden MD [facility] [place] [address] 08/29/2024 1:00 PM EST - 08/29/2024 2:00 PM EST [place] [address] Roland Gooden MD [facility] [place] [address] EGD, UPPER GI ENDOSCOPY (WRVU 2.09) 10/02/2024 1:00 PM EDT Office [place] [address] Juanpablo Hernandez MD [facility] OPHTHALMOLOGY [place], [place] [phone] 10/21/2024 9:30 AM EDT Office Visit Internal Medicine at [address] [phone] Daryn Garrett MD [facility] DR LILI [place] [address] 01/30/2025 1:30 PM EDT Laboratory Appointment Lab at [facility] Hematology Oncology [address] [place] [phone] 01/30/2025 3:[address] [place] [address] Arturo Cordero MD [facility] [place] [address] 01/30/2025 4:15 PM EDT Office Visit Hematology and Oncology at [facility] [place] [address] Arturo Cordero MD [facility] DR [place] [address] Scheduled Orders Name Type Priority Associated Diagnoses [...] syndrome documented in this encounter Care Teams Cheese Cutter Relationship Specialty Start Date End Date Luis E Narayan MD [facility] [address] [place] [address] PCP - General Family Medicine 01/20/22 07/17/22 documented as of this encounter
--- OUTSIDE RECORDS SUMMARY | 2024-08-20 15:56 | XMS_ITS | Encounter Summary ---
Author Organization [facility] [place] [address] Care Team Providers Care Video Recorder Mechanic Name Role Phone Luis E Narayan MD Primary Care Provider [phone]- [phone] Encounter Details Date Type Department Care Team (Latest Contact Info) Description 03/03/2022 2:03 PM EDT - 03/03/2022 11:59 PM EDT Hospital [place] [address] Discharge Disposition: Home Social History Tobacco Use [...] 1 each 12/10/2021 02/04/2023 FreeStyle Sanjana 2 [place] MiscIndications:diabetes mellitus 1 each by Other route daily. Indications: diabetes mellitus 1 each 10/26/2021 01/23/2023 FreeStyle Sanjana 2 Sensor KitIndications:diabetes mellitus 1 each by Other route every 14 days. Indications: diabetes mellitus 2 kit 10/26/2021 01/23/2023 FreeStyle Lancets 28 gauge MiscIndications:diabetes mellitus 1 each by Other route 3 times daily. Indications: diabetes mellitus 100 each 11 10/11/2021 06/16/2022 fluticasone propionate (Flonase) 50 mcg/actuation [place], Suspension 1 spray by Each Nare route [...] 1:00 PM EST Hospital Encounter Gastroenterology at [place] [phone] Roland Gooden MD [facility] [place] [address] 08/29/2024 1:00 PM EST - 08/29/2024 2:00 PM EST Surgery Gastroenterology at [place] [phone] Roland Gooden MD [facility] [place] [address] EGD, UPPER GI ENDOSCOPY (WRVU 2.09) 10/02/2024 1:00 PM EDT Office [place] [phone] Juanpablo Hernandez MD [facility] [place] [address] 10/21/2024 9:30 AM EDT Office Visit Internal Medicine at [place] [address] [place] [address] Daryn Garrett MD [facility] DR LILI [place]EV[place]O [place] [address] 01/30/2025 1:30 PM EDT Laboratory Appointment Lab at [facility] Hematology Oncology [address] [place] [phone] 01/30/2025 3:[address] [place] [place] [phone] Arturo Cordero MD [facility] HEMATOLOGY [place] [address] 01/30/2025 4:15 PM EDT Office Visit Hematology [place] [phone] Arturo Cordero MD [facility] DR HEMATOLOGY [place] [address] Scheduled Procedures Name Priority Associated Diagnoses Date/Ti me EGD, UPPER GI ENDOSCOPY (WRVU 2.09) Irritable bowel syndrome with constipation 08/29/2024 1:00 PM EST COLONOSCOPY, DIAGNOSTIC (WRVU 3.26) Irritable bowel syndrome with constipation 08/29/2024 1:00 PM EST documented as of this encounter Visit Diagnoses Not on filedocumented in this encounter Care Teams Video Recorder Mechanic Relationship Specialty Start Date End Date Luis E Narayan MD [facility] DR LILI AZEVED[place] [address] PCP - General Family Medicine 01/20/22 07/17/22 documented as of this encounter
--- OUTSIDE RECORDS SUMMARY | 2024-08-20 15:56 | XMS_ITS | Encounter Summary ---
[place] [address] Care Team Providers Care Fixed Income Director Name Role Phone Luis E Narayan MD Primary Care Provider Encounter Details Date Type Department Care Team (Late st Contact Info) Description 03/25/2022 Telephone Hematology [place] [phone] Dar Fernandez MD Social History Tobacco Use [...] scheduled for next week. Dar Fernandez MD chief embalmer in Hematology-Oncology documented in this encounter Plan of Treatment Upcoming Encounters Date Type Department Care Team (Latest Contact Info) Description 08/29/2024 1:00 PM EST Hospital Encounter [place] [address] Roland Gooden MD [facility] [place] [address] 08/29/2024 1:00 PM EST - 08/29/2024 2:00 PM EST Surgery [place] [address] Roland Gooden MD [facility] [place] [address] EGD, UPPER GI ENDOSCOPY (WRVU 2.09) 10/02/2024 1:00 PM EDT Office Visit Ophthalmology at [place] [phone] Juanpablo Hernandez MD [facility] [address] 10/21/2024 9:30 AM EDT Office Visit Internal Medicine at [address] [place] [phone] Daryn Garrett MD [facility] DR LILI WALKER - PRIMARY CARE [place] [phone] 01/30/2025 1:30 PM EDT Laboratory Appointment Lab at [facility] Hematology Oncology [address] [place], [place] [phone] 01/30/2025 3:[address] Scan at [place] [phone] Arturo Cordero MD [facility] DR HEMATOLOGY [place] [address] 01/30/2025 4:15 PM EDT Office Visit Hematology and Oncology at [place] [phone] Arturo Cordero MD [facility] DR HEMAT[place]Y [place] [address] Scheduled Procedures Name Priority Associated Diagnoses Date/Ti me EGD, UPPER GI ENDOSCOPY (WRVU 2.09) Irritable bowel syndrome with constipation 08/29/2024 1:00 PM EST COLONOSCOPY, DIAGNOSTIC (WRVU 3.26) Irritable bowel syndrome with constipation 08/29/2024 1:00 PM EST documented as of this encounter Visit Diagnoses Not on filedocumented in this encounter Care Teams Fixed Income Director Relationship Specialty Start Date End Date Luis E Narayan MD [facility] DR LILI [place] [address] PCP - General Family Medicine 01/20/22 07/17/22 documented as of this encounter
--- OUTSIDE RECORDS SUMMARY | 2024-08-20 15:56 | XMS_ITS | Encounter Summary ---
Author Organization Counts Include [facility] Address [facility] [place] [address] Care Team Providers Care Industrial Automation Specialist Name Role Phone Daryn Garrett MD Primary Care Provider [phone] Reason for Visit * Reason Onset Date Comments Medication Refill 03/25/2022 Encounter Details Date Type Department Care Team (Late st Contact Info) Description 03/25/2022 Refill Family Medicine at [facility] [address] [place] [address] Luis E Narayan MD [facility] DR LILI WALKER[place] [address] Essential hypertension Social History Tobacco Use Types [...] 1:00 PM EST Hospital Encounter [place] [phone] Roland Gooden MD [facility] [place] [address] 08/29/2024 1:00 PM EST - 08/29/2024 2:00 PM EST Surgery [place] [phone] Roland Gooden MD [facility] [place] [address] EGD, UPPER GI ENDOSCOPY (WRVU 2.09) 10/02/2024 1:00 PM EDT Office [place] [phone] Juanpablo Hernandez MD [facility] [place] [address] 10/21/2024 9:30 AM EDT Office Visit Internal Medicine at [place] [address] [place] [address] Daryn Garrett MD [facility] [place] [address] 01/30/2025 1:30 PM EDT Laboratory Appointment Lab at [facility] Hematology Oncology [address] [place] [phone] 01/30/2025 3:[address] [place] [phone] Arturo Cordero MD [facility] DR HEMATOLOGY [place] [address] 01/30/2025 4:15 PM EDT Office Visit Hematology [place] [phone] Arturo Cordero MD [facility] DR HEMATOLOGY [place] [address] Scheduled Procedures Name Priority Associated Diagnoses Date/Ti de EGD, UPPER GI ENDOSCOPY (WRVU 2.09) Irritable bowel syndrome with constipation 08/29/2024 1:00 PM EST COLONOSCOPY, DIAGNOSTIC (WRVU 3.26) Irritable bowel syndrome with constipation 08/29/2024 1:00 PM EST documented as of this encounter Visit Diagnoses Diagnosis Essential hypertension Unspecified essential hypertension Irritable bowel syndrome with constipation Irritable bowel syndrome documented in this encounter Care Teams Industrial Automation Specialist Relationship Specialty Start Date End Date Daryn Garrett MD [facility] DR LILI [place] [address] PCP - General 04/10/24 documented as of this encounter
--- OUTSIDE RECORDS SUMMARY | 2024-08-20 15:56 | XMS_ITS | Encounter Summary ---
Author Organization [facility] Address [facility] [address] Care Team Providers Care Professor Of Art Name Role Phone Luis E Narayan MD Primary Care Provider Reason for Visit * Reason Comments Melanoma OS Encounter Details Date Type Department Care Team (Late st Contact Info) Description 02/04/2022 3:30 PM EDT Office [place] [address] Juanpablo Hernandez MD [facility] [place] [place] [address] Malignant melanoma of conjunctiva, left Social History [...] 1:00 PM EST Hospital En[place] [address] Roland Gooden MD [facility] [place] [address] 08/29/2024 1:00 PM EST - 08/29/2024 2:00 PM EST [place] [phone] Roland Gooden MD [facility] DR [place] [address] EGD, UPPER GI ENDOSCOPY (WRVU 2.09) 10/02/2024 1:00 PM EDT Office Visit Ophthalmology at [place] [phone] Juanpablo Hernandez MD [facility] [place] [address] 10/21/2024 9:30 AM EDT Office Visit Internal Medicine at [address] [phone] Daryn Garrett MD [facility] [place] [address] 01/30/2025 1:30 PM EDT Laboratory Appointment Lab at [facility] Hematology Oncology [address] [place] [phone] 01/30/2025 3:[address] Scan at [place] [phone] Arturo Cordero MD [facility] HEMATOLOGY [place] [address] 01/30/2025 4:15 PM EDT Office Visit [place]ematology [place] [phone] Arturo Cordero MD [facility] [place] [address] Scheduled Procedures Name Priority Associated Diagnoses Date/Ti me EGD, UPPER GI ENDOSCOPY (WRVU 2.09) Irritable bowel syndrome with constipation 08/29/2024 1:00 PM EST COLONOSCOPY, DIAGNOSTIC (WRVU 3.26) Irritable bowel syndrome with constipation 08/29/2024 1:00 PM EST documented as of this encounter Visit Diagnoses Diagnosis Malignant melanoma of conjunctiva, left Irritable bowel syndrome with constipation Irritable bowel syndrome documented in this encounter Care Teams Professor Of Art Relationship Specialty Start Date End Date Luis E Narayan MD [facility] DR LILI [place] [address] PCP - General Family Medicine 01/20/22 07/17/22 documented as of this encounter
--- OUTSIDE RECORDS SUMMARY | 2024-08-20 15:56 | XMS_ITS | Encounter Summary ---
Author Organization [facility] [address] Care Team Providers Care Film Sound Coordinator Name Role Phone Luis E Narayan MD Primary Care Provider Reason for Referral * Consultation (Routine) - Closed Specialty Diagnoses / Procedures Referred By Gonzalez white Referred To Contact Hematology and Oncology Diagnoses History of malignant melanoma of eye Alonso Young MD [facility] [address] LILI WALKER-DERMATOLOGY [place], [place] [address] [place] [address] Hem [place] [address] [place] [address] Referral ID Status Reason Start Date Expiration Date V isits Requested Visits Authorized [id number] Closed Consult, Test & Treat 02/14/2022 02/14/2023 1 1 Reason for Visit * Consultation (Routine) - Closed Specialty Diagnoses / Procedures Referred By Gonzalez white Referred To Contact Dermatology Diagnoses Malignant melanoma of conjunctiva, left Givens, Shane White MD [facility] [place] [address] [facility] Dermatology [address] [place] [address] Referral ID Status Reason Start Date Expiration Date V isits Requested Visits Authorized [id number] Closed Consult, Test & Treat 11/17/2021 11/17/2022 1 1 Encounter Details Date Type Department Care Team (Late st Contact Info) Description 02/14/2022 10:00 AM EDT Office Visit Dermatology at [address] [place] [address] Alonso Young MD History of malignant melanoma of eye; Seborrheic [...] on the trunk and extremities, including R gnosticist - Benign. No treatment needed. #. Solar [...] months for a FSE []Note routed to departmental secretary [x]Recall placed in scheduling system []Appointment scheduled at checkout Scribe attestation: Lavinia Bains and Sugey Rodriguez [facility] have performed the documentation for this encounter in the presence of and acting as a scribe for Alonso Young MD. I performed the above scribed service and agree with the accuracy of the documentation in this encounter. Reviewed and signed by: Alonso Young MD Dermatology [facility] Patient seen and evaluated with staff pickle cutter: Aris Taylor MD Dermatology [facility] * Aris Taylor MD - 02/14/2022 [...] 1:00 PM EST Hospital Encounter [place] [phone] Roland Gooden MD [facility] [place] [address] 08/29/2024 1:00 PM EST - 08/29/2024 2:00 PM EST [place] [phone] Roland Gooden MD [facility] [address] EGD, UPPER GI ENDOSCOPY (WRVU 2.09) 10/02/2024 1:00 PM EDT Office [place] [phone] Juanpablo Hernandez MD [facility] [place] [address] 10/21/2024 9:30 AM EDT Office Visit Internal Medicine at [address] [phone] Daryn Garrett MD [facility] DR LILI W[place]ER [place] [address] 01/30/2025 1:30 PM EDT Laboratory Appointment Lab at [facility] Hematology Oncology [address] [place] [phone] 01/30/2025 3:[address] [place] [address] Arturo Cordero MD [facility] HEMATOLOGY [place] [address] 01/30/2025 4:15 PM EDT Office Visit Hematology [place] [address] Arturo Cordero MD [facility] DR HEMATOLOGY [place] [address] Scheduled Procedures Name Priority Associated Diagnoses Date/Ti [...] lentigo Other dyschromia Skin tags, multiple acquired Irritable bowel syndrome with constipation Irritable bowel syndrome documented in this encounter Care Teams Film Sound Coordinator Relationship Specialty Start Date End Date Luis E Narayan MD [facility] [address] [place] [address] PCP - General Family Medicine 01/20/22 07/17/22 documented as of this encounter
--- OUTSIDE RECORDS SUMMARY | 2024-08-20 15:56 | XMS_ITS | Encounter Summary ---
Author Organization [facility] Address [facility] [place] [address] Care Team Providers Care Automobile Brake Bonder Name Role Phone Luis E Narayan MD Primary Care Provider [phone]- [phone] Reason for Visit * Reason Onset Date Comments Other 04/14/2022 Encounter Details Date Type Department Care Team (Late st Contact Info) Description 04/14/2022 Telephone Family Medicine at [facility] [address] [place] [phone] Luis E Narayan MD [facility] DR LILI [place] [address] Other Social History Tobacco Use Types Packs/Day [...] Identified by name and . Seen in [facility] ED last night and treated [...] Fax request for medical records sent to [facility] * Telephone Encounter - Angi King - 04/14/2022 4:42 PM EDT Please call patient to discuss Emergency Room Follow Up Reason for the Emergency Room visit: Lower left abdominal pain Name of the facility where patient was seen: [facility]. [address], [address] [place], [place] [address]. Symptomatic now: yes Other information: Patient called [...] leave a message: y Okay to send [facility] message: y Nurse contacted via: Message: X Call: n/a Pager: n/a documented in this encounter Plan of Treatment Upcoming Encounters Date Type Department Care Team (Latest Contact Info) Description 08/29/2024 1:00 PM EST Hospital Encounter Gastroenterology at [place] [phone] Roland Gooden MD [facility] [place] [place] [address] 08/29/2024 1:00 PM EST - 08/29/2024 2:00 PM EST Surgery Gastroenterology at [place] [phone] Roland Gooden MD [facility] [place] [place] [address] EGD, UPPER GI ENDOSCOPY (WRVU 2.09) 10/02/2024 1:00 PM EDT Office Visit Ophthalmology at [place] [phone] Juanpablo Hernandez MD [facility] [place] [address] 10/21/2024 9:30 AM EDT Office Visit Internal Medicine at [facility] [address] [place] [address] Daryn Garrett MD [facility] DR LILI [place] [address] 01/30/2025 1:30 PM EDT Laboratory Appointment Lab at [facility] Hematology Oncology [address] [place] [phone] 01/30/2025 3:[address] [place] [phone] Arturo Cordero MD [facility] [place] [address] 01/30/2025 4:15 PM EDT Office Visit Hematology [place] [phone] Arturo Cordero MD [facility] [place] [address] Scheduled Procedures Name Priority Associated Diagnoses Date/Ti me EGD, UPPER GI ENDOSCOPY (WRVU 2.09) Irritable bowel syndrome with constipation 08/29/2024 1:00 PM EST COLONOSCOPY, DIAGNOSTIC (WRVU 3.26) Irritable bowel syndrome with constipation 08/29/2024 1:00 PM EST documented as of this encounter Visit Diagnoses Not on filedocumented in this encounter Care Teams Automobile Brake Bonder Relationship Specialty Start Date End Date Luis E Narayan MD [facility] DR LILI [place] [address] PCP - General Family Medicine 01/20/22 07/17/22 documented as of this encounter
--- OUTSIDE RECORDS SUMMARY | 2024-08-20 15:56 | XMS_ITS | Encounter Summary ---
Author [place] [address] Care Team Providers Care Receiving Specialist Name Role Phone Luis E Narayan MD Primary Care Provider Reason for Referral * Diagnostic Test (Routine) - Closed Specialty Diagnoses / Procedures Referred By Contac t Referred To Contact Radiology Diagnoses Malignant melanoma of conjunctiva, left Procedures CT Chest Abdomen Pelvis w Contrast (Generic) Leandra Black APRN [facility] [address] [place]AT[place] [address] [facility] [place] [address] Referral ID Status Reason Start Date Expiration Date V isits Requested Visits Authorized [id number] Closed Specialty Service Requested 12/24/2021 06/25/2023 1 1 * Diagnostic Test (Routine) - Closed Specialty Diagnoses / Procedures Referred By Contac t Referred To Contact Radiology Diagnoses Malignant melanoma of conjunctiva, left Procedures CT Neck Soft Tissue w Contrast (Generic) Leandra Black APRN [facility] [address] [place]ATOLOG[place] [address] [facility] [place] [address] Referral ID Status Reason Start Date Expiration Date V isits Requested Visits Authorized [id number] Closed Specialty Service Requested 12/24/2021 06/25/2023 1 1 Reason for Visit * Reason Comments Follow-up Encounter Details Date Type Department Care Team (Late st Contact Info) Description 12/23/2021 3:15 PM EDT Office Visit Hematology [place] [address] Arturo Cordero MD [facility] [address] [place] [address] Leandra Black APRN [facility] [address] [place] [address] Malignant melanoma of conjunctiva, left; History of [...] from the original note were not included. [facility] FOLLOW UP NOTE REFERING PHYSICIAN: Dr. [...] management - fall 2018: saw a new visual lead and was referred to Dr. 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 Medina - 03/31/2020: saw her visual lead Dr. Hernandez and was noted to have [...] uses inhalerswith good effect ??? 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 PRO EXCIS CORNEA LESN Left 05/14/2020 EXCISION OF LESION, CORNEA, EXCEPT PTERYGIUM (WRVU 7.5) performed by Juanpablo Hernandez MD at [facility] ??? PRO LAP, PARTIAL NEPHRECTOMY Left 06/28/2019 LAPAROSCOPY, PARTIAL NEPHRECTOMY, ROBOTIC ASSIST (WRVU 27.41) performed by Avila Medina MD at [facility] OR ??? PRO PLACE AMNIOTIC MEMBRANE OCULAR SURFACE;SINGLE LAYER SUTURED Left 05/14/2020 PLACEMENT OF AMNIOTIC MEMBRANE ON THE OCULAR SURFACE,SINGLE LAYER,SUTURED (WRVU 2.5) performed by Juanpablo Hernandez MD at [facility] MEDS: Alcohol Swabs, LORazepam, albuteroL, [...] with significant other Years ago was a family partner, 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 [...] least annually, or as recommended by your ad compositor. o Sun Exposure: Use broad spectrum, 30 SPF or higher, water resistant sunscreen with reapplication every 2 hours OR SPF clothing and limit your amount of direct sun exposure when possible. o Regular skin and lymph node self-examination should be performed. Please report any new lesions, lumps or bumps of concern to your ad compositor or oncology team. ? You should be [...] new symptoms or concerns. Leandra Black DNP, [employer] TECH Return in 3 mos for stand alone US RTC in 6 mos with labs, clinic appointment and CT scan documented in this encounter Plan of Treatment Upcoming Encounters Date Type Department Care Team (Latest Contact Info) Description 08/29/2024 1:00 PM EST Hospital Encounter Gastroenterology at [place] [phone] Roland Gooden MD [facility] [place] [address] 08/29/2024 1:00 PM EST - 08/29/2024 2:00 PM EST Surgery Gastroenterology at [place] [phone] Roland Gooden MD [facility] [place] [address] EGD, UPPER GI ENDOSCOPY (WRVU 2.09) 10/02/2024 1:00 PM EDT Office Visit Ophthalmology at [place] [phone] Juanpablo Hernandez MD [facility] [place] [address] 10/21/2024 9:30 AM EDT Office Visit Internal Medicine at [facility] [address] [place] [address] Daryn Garrett MD [facility] [address] LILI [place] [address] 01/30/2025 1:30 PM EDT Laboratory Appointment Lab at [facility] Hematology Oncology [address] [place] [phone] 01/30/2025 3:[address] [place] [phone] Arturo Cordero MD [facility] [address] [place] [address] 01/30/2025 4:15 PM EDT Office Visit Hematology [place] [phone] Arturo Cordero MD [facility] [address] [place] [address] Scheduled Procedures Name Priority Associated Diagnoses Date/Ti [...] questions please contact the health customer care coordinator that requested your imaging first. [...] have questions please contactthe health customer care coordinator that requested your imaging first. Leandra Tran Marianne BAE IMG CT ORDERABLES * CT Neck Soft [...] questions please contact the health customer care coordinator that requested your imaging first. ? Electronically signed by: Chuy Delgado MD, [facility] ([phone]), at 06/24/2022 11:34 AM Narrative 06/24/2022 11:34 [...] have questions please contactthe health customer care coordinator that requested your imaging first. Electronically signed by: Chuy Delgado MD, [facility]([phone]), at 06/24/2022 11:34 AM Leandra Black APRN [facility] CT ORDERABLES * US Soft Tissue Head [...] by: Roland Izaguirre MD, [facility] ([phone]), at 03/21/2022 1:56 PM Thank you for letting us participate in the care of this patient. If you are a health care provider and have any questions regarding this report, please contact the number above. For patients who have questions, please contact the health customer care coordinator that requested your imaging first. ? Roland Izaguirre, Staff Physician Electronically Signed Final Report ?? 03/21/2022 02:04 pm Narrative 03/21/2022 2:05 PM EDT Ultrasound Lymph Node ? (Signed Final 03/21/2022 02:04 pm) Report PATIENT INFO: ID #: ? [id number] ?: ??58 (61 yrs)(F) Name: ? PATIENCE MANJARREZ ? Visit Date: 03/21/2022 01:33 pm PERFORMED BY: Performed By: ? Stephany Pittman RDMS Attending: ?Dmitriy COLVIN, Roland Fung Resident: ? Rojelio COLVIN, Gia Davalos Referred By: ?LEANDRA BLACK Location: ? [place] SERVICE(S) PROVIDED: USTN - Soft Tissue Neck or Head - [id number] ? [id number] INDICATIONS: History of left eye conjunctival melanoma s/p resection, [facility] imaging of left neck ran basin --------- FINDINGS: --------- Title: ? Ultrasound Lymph Node Report Findings: ?Several visualized lymph nodes, largest measures ?1.6 cm left level 2. Procedure Note Roland Izaguirre MD - 03/21/2022 Ultrasound Lymph Node (Signed Final 03/21/2022 02:04 pm) Report PATIENT INFO: ID #: [id number] : 58 (61 yrs)(F) Name: PATIENCE MANJARREZ Visit Date: 03/21/2022 01:33 pm PERFORMED BY: Performed By: Stephany Pittman RDMS Attending: Roland Izaguirre MD Resident: Gia Serrato MD Referred By: LEANDRA BLACK Location: [place] SERVICE(S) PROVIDED: USTN - Soft Tissue Neck or Head - [id number] INDICATIONS: History of left eye conjunctival melanoma [...] who have questions, please contact the health customer care coordinator that requested your imaging first. Roland Izaguirre, Staff Physician Electronically Signed Final Report 03/21/2022 02:04 pm Leandra Black APRN IMG US GEN ORDERAB LES * Lactate Dehydrogenase (12/23/2021 12:45 PM EDT) Lactate Dehydrogenase 219 110 - 220 unit/L [facility] Blood 12/23/2021 12:4 5 PM EDT 12/23/2021 1:04 PM EDT Narrative Resulting Agency Comment Spec In Lab Leandra Black APRN CHEMISTRY ORDERABL ES [facility] [place] [address] * (ABNORMAL) Comprehensive metabolic panel (non-fasting) (12/23/2021 12:45 PM EDT) Glucose 190 65 - 199 mg/dL [facility] Comment:Diabetes: >=200 mg/d L plus symptoms Blood Urea Nitrogen 13 8 - 18 mg/dL [facility] Creatinine 0.88 0.70 - 1.20 mg/dL [facility] Sodium 139 135 - 145 mmol/L [facility] Potassium 4.4 3.5 - 5.0 mmol/L [facility] [...] 15 mmol/L [facility] Calcium 9.5 8.5 - 10.5 mg/dL [facility] Protein, Total 6.7 6.1 - 8.0 g/dL [facility] Albumin 4.1 3.2 - 5.2 g/dL [facility] Aspartate Aminotransferase 29 0 - 30 unit/L [facility] Alanine Aminotransferase 35(H) 0 - 30 unit/L [facility] Alkaline Phosphatase 93 35 - 105 unit/L [facility] Bilirubin, Total 0.4 0.2 - 1.3 mg/dL [facility] Est Glomerular Filtration Rate 74 >=60 mL/min/1. 73 m?? [facility] Comment: This patient's estimated [...] CHEMISTRY ORDERABL ES [facility] [place] [address] documented in this encounter Visit Diagnoses Diagnosis Malignant melanoma of conjunctiva, left History of renal cell cancer Malignant melanoma of conjunctiva, left Malignant melanoma of conjunctiva, left Irritable bowel syndrome with constipation Irritable bowel syndrome documented in this encounter Care Teams Receiving Specialist Relationship Specialty Start Date End Date Luis E Narayan MD [facility] [address] [place] [address] PCP - General Family Medicine 03/26/19 01/19/22 documented as of this encounter
--- OUTSIDE RECORDS SUMMARY | 2024-08-20 15:56 | XMS_ITS | Encounter Summary ---
Author Organization [facility] Address [facility] [place] [address] Care Team Providers Care Intensive Care Medicine Specialist Name Role Phone Luis E Narayan MD Primary Care Provider [phone]- [phone] Encounter Details Date Type Department Care Team (Late st Contact Info) Description 04/07/2022 Telephone Family Medicine at [facility] [address] [place] [phone] Earl Valdez MD [facility] DR L[place] [address] Social History Tobacco Use Types Packs/Day Years [...] 1:00 PM EST Hospital Encounter [place] [phone] Roland Gooden MD [facility] [place] [address] 08/29/2024 1:00 PM EST - 08/29/2024 2:00 PM EST [place] [phone] Roland Gooden MD [facility] [place] [address] EGD, UPPER GI ENDOSCOPY (WRVU 2.09) 10/02/2024 1:00 PM EDT Office Visit Ophthalmology at [place] [phone] Juanpablo Hernandez MD [facility] [place] [address] 10/21/2024 9:30 AM EDT Office Visit Internal Medicine at [address] [phone] Daryn Garrett MD [facility] [place] [address] 01/30/2025 1:30 PM EDT Laboratory Appointment Lab at [facility] Hematology Oncology [address] [place] [phone] 01/30/2025 3:[address] Scan at [place] [phone] Arturo Cordero MD [facility] [place] [address] 01/30/2025 4:15 PM EDT Office Visit Hematology [place] [phone] Arturo Cordero MD [facility] [place] [address] Scheduled Procedures Name Priority Associated Diagnoses Date/Ti me EGD, UPPER GI ENDOSCOPY (WRVU 2.09) Irritable bowel syndrome with constipation 08/29/2024 1:00 PM EST COLONOSCOPY, DIAGNOSTIC (WRVU 3.26) Irritable bowel syndrome with constipation 08/29/2024 1:00 PM EST documented as of this encounter Visit Diagnoses Not on filedocumented in this encounter Care Teams Intensive Care Medicine Specialist Relationship Specialty Start Date End Date Luis E Narayan MD [facility] DR LILI [place] [address] PCP - General Family Medicine 01/20/22 07/17/22 documented as of this encounter
--- OUTSIDE RECORDS SUMMARY | 2024-08-20 15:56 | XMS_ITS | Encounter Summary ---
Author Organization [facility] [place] [address] Care Team Providers Care Indoor Plant Technician Name Role Phone Luis E Narayan MD Primary Care Provider +1- [phone] Encounter Details Date Type Department Care Team (Latest Contact Info) Description 12/23/2021 12:35 PM EDT - 12/23/2021 11:59 PM EDT Hospital Encounter [place]ematology [place] [address] Malignant melanoma of conjunctiva, left Discharge Disposition: [...] 1 each 12/10/2021 02/04/2023 FreeStyle Sanjana 2 [place] MiscIndications:diabetes mellitus 1 each by Other route [...] 10/01/2021 01/29/2022 fluticasone propionate (Flonase) 50 mcg/actuation [place], Suspension 1 spray by Each Nare route [...] 1:00 PM EST Hospital Encounter [place] [phone] Roland Gooden MD [facility] [place] [address] 08/29/2024 1:00 PM EST - 08/29/2024 2:00 PM EST [place] [phone] Roland Gooden MD [facility] [place] [address] EGD, UPPER GI ENDOSCOPY (WRVU 2.09) 10/02/2024 1:00 PM EDT Office [place] [phone] Juanpablo Hernandez MD [facility] [place] [address] 10/21/2024 9:30 AM EDT Office Visit Internal Medicine at [facility] [address] [place] [address] Daryn Garrett MD [facility] DR LILI [place] [address] 01/30/2025 1:30 PM EDT Laboratory Appointment Lab at [facility] Hematology Oncology [address] [place] [phone] 01/30/2025 3:[address] [place] [address] Arturo Cordero MD [facility] DR [place] [address] 01/30/2025 4:15 PM EDT Office Visit Hematology [place] [address] Arturo Cordero MD [facility] DR [place] [address] Scheduled Procedures Name Priority Associated Diagnoses Date/Ti [...] LABORATORY Neutrophil Absolute 4.80 1.70 - 6.10 x10(3)/[facility] LABORATORY Lymph % 27.4 % [facility] Lymphocytes Abs 2.1 0.9 - 3.2 x10(3)/[facility] LABORATORY Monocyte % 6.9 % [facility] LABORATORY Monocyte Abs 0.5 0.3 - 0.9 x10(3)/[facility] LABORATORY Eos % 1.7 % [facility] Eosinophils Abs 0.1 0.0 - 0.4 x10(3)/[facility] LABORATORY Basophil % 0.8 % [facility] LABOR[facility]ORY Baso Absolute 0.1 0.0 - 0.1 x10(3)/[facility] LABORATORY Immature Gran % 0.50 % [facility] Comment: Immature granulocytes(IG's)percentage and absolute count will include metamyelocytes, myelocytes, and promyelocytes. Blood smears from CBCs yielding IG's will be scanned manually for concordance. If this scan disagrees with the automated IG or if promyelocytes are noted, a manual differential will be performed. Immature Gran Absolute 0.04 0.00 - 0.04 x10(3)/[facility] LABORATORY Blood 12/23/2021 12:4 5 PM EDT 12/23/2021 1:04 PM EDT Narrative Resulting Agency Comment Spec In Lab Leandra Lopes SEMICONDUCTOR WAFERS SAW OPERATOR HEMATOLOGY ORDERAB LES [facility] [place] [address] * (ABNORMAL) Hemogram (12/23/2021 12:45 PM EDT) Pathologist [facility] White Blood Cell 7.7 4.0 - 9.5 x10(3)/mc L [facility] Red Blood Cell 4.53 4.00 - 5.21 x10(6)/[facility] LABORATORY Hemoglobin 12.9 11.7 - 15.5 g/dL [facility] Hematocrit 39.6 35.7 - 45.8 % [facility] Mean Cell Volume 87.4 82.6 - 94.4 fL [facility] Mean Cell Hemoglobin 28.5 27.1 - 32.0 pg [facility] Mean Cell Hemoglobin Concentration 32.6 31.7 - 35.0 g/dL [facility] Platelet 387(H) 145 - 357 x10(3)/[facility] LABORATORY RDW Standard Deviation 46.8(H) 37.0 - 46.0 fL [facility] RDW coefficient of variation 14.5(H) 11.5 - 14.1 % [facility] Mean Platelet Volume 9.6 7.6 - 12.9 fL [facility] NRBC% auto 0.0 % [facility] NRBC Absolute 0.000 0.000 - 0.000 x10(3)/[facility] LABORATORY Blood 12/23/2021 12:4 5 PM EDT 12/23/2021 1:04 PM EDT Narrative Resulting Agency Comment Spec In Lab Leandra Lopes APRN HEMATOLOGY ORDERAB LES [facility] [place] [address] * Lactate Dehydrogenase (12/23/2021 12:45 PM EDT) Pathologist [facility] Lactate Dehydrogenase 219 110 - 220 unit/L [facility] Blood 12/23/2021 12:4 5 PM EDT 12/23/2021 1:04 PM EDT Narrative Resulting Agency Comment Spec In Lab Leandra Lopes APRN CHEMISTRY ORDERABL ES [facility] [place] [address] * (ABNORMAL) Comprehensive metabolic panel (non-fasting) (12/23/2021 12:45 PM EDT) Glucose 190 65 - 199 mg/dL [facility] Comment:Diabetes: >=200 mg/d L plus symptoms Blood Urea Nitrogen 13 8 - 18 mg/dL [facility] Creatinine 0.88 0.70 - 1.20 mg/dL [facility] Sodium 139 135 - 145 mmol/L [facility] Potassium 4.4 3.5 - 5.0 mmol/L [facility] [...] Protein, Total 6.7 6.1 - 8.0 g/dL [facility] Albumin 4.1 3.2 - 5.2 g/dL [facility] Aspartate Aminotransferase 29 0 - 30 unit/L [facility] Alanine Aminotransferase 35(H) 0 - 30 unit/L [facility] Alkaline Phosphatase 93 35 - 105 unit/L [facility] Bilirubin, Total 0.4 0.2 - 1.3 mg/dL [facility] Est Glomerular Filtration Rate 74 >=60 mL/min/1. 73 m?? [facility] Comment: This patient's estimated [...] Lab Leandra Lopes APRN CHEMISTRY ORDERABL ES [facility] [place] [address] documented in this encounter Visit Diagnoses Diagnosis Malignant melanoma of conjunctiva, left Irritable bowel syndrome with constipation Irritable bowel syndrome documented in this encounter Care Teams Indoor Plant Technician Relationship Specialty Start Date End Date Luis E Narayan MD [facility] DR LILI AZEVEDO-[place] [address] PCP - General Family Medicine 03/26/19 01/19/22 documented as of this encounter
--- OUTSIDE RECORDS SUMMARY | 2024-08-20 15:57 | XMS_ITS | Encounter Summary ---
Author Organization [facility] Address [facility] [place] [address] Care Team Providers Care Community Reinvestment Act Officer Name Role Phone Luis E Narayan MD Primary Care Provider +1- [phone] Reason for Visit * Reason Comments Diabetes Encounter Details Date Type Department Care Team (Late st Contact Info) Description 08/26/2021 2:30 PM EST TH Visit (TeleHealth) Family Medicine at [facility] [address] [place] [address] Julia Low, [facility] Type 2 diabetes mellitus without [...] Julia Low RPH + Alba Anderson P4 Director Software Quality Assurance Visit Type: Telehealth Phone Diabetes Mellitus (DM) [...] antithrombotic long-term use, Arthritis, Asthma, Atherosclerosis of [place] 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 Lunch: [place] with ham/turkey, Honduran cheese, crisostomo, mustard with Doritos Dinner: Spaghetti [...] area transportation options [] Languages other than Omani: Solar Engineer services provided No [] Allowances for cultural diversity: meal plan will be tailored for cultural food shavon [] Hearing: Paster Hat Lining provided No [] Vision impaired: print augmentation [...] 30 tablet 3 ??? FreeStyle Sanjana 2 [place] Misc 1 each by Other route daily. [...] 0 ??? fluticasone propionate (FLONASE) 50 mcg/actuation [place], Suspension 1 spray by Each Nare route [...] 09/07/2005 TDAP 04/09/2019 , 06/24/2011 Prescription Insurance: [facility] [id number] Assessment and Recommendations: 1. Diabetes Goals of [...] for the individual, but in general the [place] Diabetes Association recommends a fasting blood sugar [...] 1:00 PM EST Hospital En[place] [address] Roland Gooden MD [facility] [place] [address] 08/29/2024 1:00 PM EST - 08/29/2024 2:00 PM EST [place] [address] Roland Gooden MD [facility] [place] [address] EGD, UPPER GI ENDOSCOPY (WRVU 2.09) 10/02/2024 1:00 PM EDT Office Visit Ophthalmology at [place] [phone] Juanpablo Hernandez MD [facility] [address] 10/21/2024 9:30 AM EDT Office Visit Internal Medicine at [address] [phone] Daryn Garrett MD [facility] DR LILI [place]ER [place] [address] 01/30/2025 1:30 PM EDT Laboratory Appointment Lab at [facility] Hematology Oncology [address] [place], [place] [phone] 01/30/2025 3:[address] Scan at [place] [phone] Arturo Cordero MD [facility] DR HEMATOLOGY [place] [address] 01/30/2025 4:15 PM EDT Office Visit Hematology [place] [phone] Arturo Cordero MD [facility] DR HEMATOLOGY [place] [address] Scheduled Procedures Name Priority Associated Diagnoses Date/Ti [...] syndrome documented in this encounter Care Teams Community Reinvestment Act Officer Relationship Specialty Start Date End Date Luis E Narayan MD [facility] DR LILI WALKER[place] [address] PCP - General Family Medicine 03/26/19 01/19/22 documented as of this encounter
--- OUTSIDE RECORDS SUMMARY | 2024-08-20 15:57 | XMS_ITS | Encounter Summary ---
Author Organization [facility] Address [facility] [place] [address] Care Team Providers Care Certified Medication Aide Name Role Phone Luis E Narayan MD Primary Care Provider +1- [phone] Reason for Visit * Reason Comments Diabetes Encounter Details Date Type Department Care Team (Late st Contact Info) Description 08/06/2021 11:00 AM EST TH Visit (TeleHealth) Family Medicine at [facility] [address] [place] [address] Julia Low, [facility] Type 2 diabetes mellitus without long-term [...] antithrombotic long-term use, Arthritis, Asthma, Atherosclerosis of [place] coronary artery ofnative heart with angina [...] # of Missed doses/week None - Uses [employer] drug - rx insurance [facility] [id number] - Needs testing supplies - would prefer oral therapies to injections although admits she could learn to take an injectable med Medication changes made at last visit: ?? Continue metformin 1000 mg BID ?? Sent testing supplies to [employer] ?? Will recommend Ozempic 0.25 mg once [...] cause hypoglycemia in the afternoon SMBG: Prescribed The [employer] Sanjana CGM But still can not find. [...] not want to eat every day Lunch: [place] with ham/turkey northern irish cheese crisostomo and mustard with Doritos Dinner: [...] area transportation options [] Languages other than [place]an: Coil [place] Assembler services provided No [] Allowances for cultural diversity: meal plan will be tailored for cultural food shavon [] Hearing: Bulk Picker provided No [] Vision impaired: print augmentation [...] 30 tablet 3 ??? FreeStyle Sanjana 2 [place] Misc 1 each by Other route daily. [...] 0 ??? fluticasone propionate (FLONASE) 50 mcg/actuation [place], Suspension 1 spray by Each Nare route [...] 06/24/2011 Prescription Insurance: [facility] [id number] Assessment and Recommendations: 1. Diabetes Goals of [...] for the individual, but in general the [place] Diabetes Association recommends a fasting blood sugar [...] at the appointment and that [facility] is providing recommendations (summary located at top of note) for provider review and follow up. Julia Low RPH 08/06/21 documented in this encounter Plan of Treatment Upcoming Encounters Date Type Department Care Team (Latest Contact Info) Description 08/29/2024 1:00 PM EST Hospital Encounter Gastroenterology at [place] [phone] Roland Gooden MD [facility] [address] 08/29/2024 1:00 PM EST - 08/29/2024 2:00 PM EST Surgery Gastroenterology at [place] [phone] Roland Gooden MD [facility] [address] EGD, UPPER GI ENDOSCOPY (WRVU 2.09) 10/02/2024 1:00 PM EDT Office Visit [place] [phone] Juanpablo Hernandez MD [facility] [address] 10/21/2024 9:30 AM EDT Office Visit Internal Medicine at [address] [phone] Daryn Garrett MD [facility] DR [place]IL[place] [address] 01/30/2025 1:30 PM EDT Laboratory Appointment Lab at [facility] Hematology Oncology [address] [place] [phone] 01/30/2025 3:[address] [place] [address] Arturo Cordero MD [facility] [place] [address] 01/30/2025 4:15 PM EDT Office Visit Hematology [place] [address] Arturo Cordero MD [facility] [place] [address] Scheduled Procedures Name Priority Associated Diagnoses Date/Ti [...] syndrome documented in this encounter Care Teams Certified Medication Aide Relationship Specialty Start Date End Date Luis E Narayan MD [facility] [address] [place] [address] PCP - General Family Medicine 03/26/19 01/19/22 documented as of this encounter
--- OUTSIDE RECORDS SUMMARY | 2024-08-20 15:57 | XMS_ITS | Encounter Summary ---
Author Organization [facility] Address [facility] [place] [address] Care Team Providers Care Clay Products Machine Operator Name Role Phone Luis E Narayan MD Primary Care Provider +1- [phone] Reason for Visit * Reason Comments Diabetes Encounter Details Date Type Department Care Team (Late st Contact Info) Description 11/16/2021 10:00 AM EDT TH Visit (TeleHealth) Family Medicine at 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 [...] difficult to hear pt due to phone veterinary receptionist/limited service Allergies and Drug intolerance: Allergies [...] have left at prior so house Before [facility] Before Lunch After Supper 129 137 138 144 152 162 147 175 -November 119 146 -November 156 92 3-November 124 -November 164 -November 6-November 13-November 8-November 89 AM PHI Average 140 134 138 Lowest 89 92 138 Highest 175 152 138 Daily Avg 138 eA1c [id number] Prior Averages: 08/26/21 09/09/21 09/24/21 Daily Avg 157 168 131 eA1c 8.562542 8.46 7.20 Acute Complications Have you ever [...] enough to eat eggs every day. Lunch: [place] with ham/turkey, Nepalese cheese, crisostomo, mustard with Doritos Dinner: Spaghetti [...] transportation options [] Languages other than Sudanese: Blankbook Stitching Machine Operator services provided No [] Allowances for cultural diversity: meal plan will be tailored for cultural food shavon [] Hearing: Potato Picker provided No [] Vision impaired: print [...] 30 tablet 11 ??? FreeStyle Sanjana 2 [place] Misc 1 each by Other route daily. [...] 5 ??? fluticasone propionate (Flonase) 50 mcg/actuation [place], Suspension 1 spray by Each Nare route [...] 09/07/2005 TDAP 04/09/2019 , 06/24/2011 Prescription Insurance: [facility] [id number] Assessment and Recommendations: 1. Diabetes Goals of [...] for the individual, but in general the [place]alese Diabetes Association recommends a fasting blood sugar [...] and follow up. Julia Low, [facility] 11/16/21 documented in this encounter Plan of Treatment Upcoming Encounters Date Type Department Care Team (Latest Contact Info) Description 08/29/2024 1:00 PM EST Hospital En[place] [phone] Roland Gooden MD [facility] [place] [address] 08/29/2024 1:00 PM EST - 08/29/2024 2:00 PM EST [place] [phone] Roland Gooden MD [facility] [place] [address] EGD, UPPER GI ENDOSCOPY (WRVU 2.09) 10/02/2024 1:00 PM EDT Office [place] [phone] Juanpablo Hernandez MD [facility] [place] [address] 10/21/2024 9:30 AM EDT Office Visit Internal Medicine at [address] [phone] Daryn Garrett MD [facility] DR LILI [place]ER [place] [address] 01/30/2025 1:30 PM EDT Laboratory Appointment Lab at [facility] Hematology Oncology [address] [place] [phone] 01/30/2025 3:[address] [place] [address] Arturo Cordero MD [facility] HEMATOLOGY [place] [address] 01/30/2025 4:15 PM EDT Office Visit [place]ematology [place] [address] Arturo Cordero MD [facility] HEMATOLOGY [place] [address] Scheduled Procedures Name Priority Associated Diagnoses Date/Ti [...] syndrome documented in this encounter Care Teams Clay Products Machine Operator Relationship Specialty Start Date End Date Luis E Narayan MD [facility] [address] [place] [address] PCP - General Family Medicine 03/26/19 01/19/22 documented as of this encounter
--- OUTSIDE RECORDS SUMMARY | 2024-08-20 15:57 | XMS_ITS | Encounter Summary ---
Author Organization [facility] [place] [address] Care Team Providers Care Search Marketing Coordinator Name Role Phone Luis E Narayan MD Primary Care Provider Reason for Referral * Diagnostic Test (Routine) - Closed Specialty Diagnoses / Procedures Referred By Contac t Referred To Contact Radiology Diagnoses Malignant melanoma of conjunctiva, left Malignant melanoma, unspecified site Procedures CT Neck Soft Tissue w Contrast (Generic) Leandra Lopes APRN [facility] [place] [address] [facility] [place] [address] Referral ID Status Reason Start Date Expiration Date V isits Requested Visits Authorized [id number] Closed Specialty Service Requested 12/23/2021 07/09/2022 1 1 * Diagnostic Test (Routine) - Closed Specialty Diagnoses / Procedures Referred By Contac t Referred To Contact Radiology Diagnoses Malignant melanoma of conjunctiva, left Malignant melanoma, unspecified site Procedures CT Chest Abdomen Pelvis w Contrast (Generic) Leandra Lopes APRN [facility] [place] [address] [facility] [place] [address] Referral ID Status Reason Start Date Expiration Date V isits Requested Visits Authorized [id number] Closed Specialty Service Requested 12/23/2021 07/09/2022 1 1 Reason for Visit * Diagnostic Test (Routine) - Closed Specialty Diagnoses / Procedures Referred By Contchrissy t Referred To Contact Radiology Diagnoses Malignant melanoma of conjunctiva, left Malignant melanoma, unspecified site Procedures CT Chest Abdomen Pelvis w Contrast (Generic) Leandra Lopes APRN [facility] [place] [address] [facility] [place] [address] Referral ID Status Reason Start Date Expiration Date V isits Requested Visits Authorized [id number] Closed Specialty Service Requested 12/23/2021 07/09/2022 1 1 Encounter Details Date Type Department Care Team (Late st Contact Info) Description 12/23/2021 12:07 PM EDT - 12/23/2021 12:34 PM EDT Hospital [place] [address] Leandra Lopes APRN [facility] [place] [address] Malignant melanoma of conjunctiva, left; [...] each 11 12/10/2021 02/04/2023 FreeStyle Sanjana 2 [place] MiscIndications:diabetes mellitus 1 each by Other route [...] 10/01/2021 01/29/2022 fluticasone propionate (Flonase) 50 mcg/actuation [place], Suspension 1 spray by Each Nare route [...] 1:00 PM EST Hospital En[place] [address] Roland Gooden MD [facility] [place] [address] 08/29/2024 1:00 PM EST - 08/29/2024 2:00 PM EST [place] [phone] Roland Gooden MD [facility] [place] [address] EGD, UPPER GI ENDOSCOPY (WRVU 2.09) 10/02/2024 1:00 PM EDT Office [place] [address] Juanpablo Hernandez MD [facility] [place] [address] 10/21/2024 9:30 AM EDT Office Visit Internal Medicine at [facility] [address] [place] [phone] Daryn Garrett MD [facility] DR LILI [place] [address] 01/30/2025 1:30 PM EDT Laboratory Appointment Lab at [facility] Hematology Oncology [address] [place] [phone] 01/30/2025 3:[address] [place] [phone] Arturo Cordero MD [facility] [place] [address] 01/30/2025 4:15 PM EDT Office Visit Hematology [place] [phone] Arturo Cordero MD [facility] [place] [address] Scheduled Procedures Name Priority Associated Diagnoses Date/Ti [...] who have questions please contact the health client care specialist that requested your imaging first. [...] patients who have questions please contactthe health client care specialist that requested your imaging first. Leandra [...] who have questions please contact the health client care specialist that requested your imaging first. [...] patients who have questions please contactthe health client care specialist that requested your imaging first. Leandra Tran Marianne BAE IMG CT ORDERABLES documented in this encounter Visit Diagnoses Diagnosis Malignant melanoma of conjunctiva, left Malignant melanoma, unspecified site Irritable bowel syndrome with constipation Irritable [...] mLs documented in this encounter Care Teams Search Marketing Coordinator Relationship Specialty Start Date End Date Luis E Narayan MD [facility] [place] [address] PCP - General Family Medicine 03/26/19 01/19/22 documented as of this encounter
--- OUTSIDE RECORDS SUMMARY | 2024-08-20 15:57 | XMS_ITS | Encounter Summary ---
Author Organization [facility] [place] [address] Care Team Providers Care Palm And Back Forger Name Role Phone Luis E Narayan MD Primary Care Provider Encounter Details Date Type Department Care Team (Latest Contact Info) Description 07/27/2021 7:42 AM EST - 07/27/2021 11:59 PM EST Hospital Encounter Mammography/[place] [address] Luis E Narayan MD [facility] DR LILI [place] [address] Visit for screening mammogram Discharge Disposition: Home [...] tablet 1 01/08/2021 08/02/2021 FreeStyle Sanjana 2 [place] MiscIndications:diabetes mellitus 1 each by Other route [...] 09/15/2020 09/19/2023 fluticasone propionate (FLONASE) 50 mcg/actuation [place], Suspension 1 spray by Each Nare route [...] 1:00 PM EST Hospital Encounter [place] [phone] Roland Gooden MD [facility] [place] [address] 08/29/2024 1:00 PM EST - 08/29/2024 2:00 PM EST Surgery [place] [phone] Roland Gooden MD [facility] [place] [address] EGD, UPPER GI ENDOSCOPY (WRVU 2.09) 10/02/2024 1:00 PM EDT Office Visit Ophthalmology at [place] [phone] Juanpablo Hernandez MD [facility] [place] [address] 10/21/2024 9:30 AM EDT Office Visit Internal Medicine at [place] [address] [place] [phone] Drayn Garrett MD [facility] [place] [address] 01/30/2025 1:30 PM EDT Laboratory Appointment Lab at [facility] Hematology Oncology [address] [place], [place] [phone] 01/30/2025 3:[address] Scan at [place] [phone] Arturo Cordero MD [facility] [place] [address] 01/30/2025 4:15 PM EDT Office Visit Hematology and Oncology at [place] [phone] Arturo Cordero MD [facility] DR HEMATOLOGY [place] [address] Scheduled Procedures Name Priority Associated Diagnoses Date/Ti [...] Visit for screening mammogram Other screening mammogram Irritable bowel syndrome with constipation Irritable bowel syndrome documented in this encounter Care Teams Palm And Back Forger Relationship Specialty Start Date End Date Luis E Narayan MD [facility] [place] [address] PCP - General Family Medicine 03/26/19 01/19/22 documented as of this encounter
--- OUTSIDE RECORDS SUMMARY | 2024-08-20 15:57 | XMS_ITS | Encounter Summary ---
Author Organization [facility] Address [facility] [place] [address] Care Team Providers Care Bridge Painter Helper Name Role Phone Luis E Narayan MD Primary Care Provider +1- [phone] Reason for Visit * Reason Onset Date Comments Appointment 08/20/2021 Encounter Details Date Type Department Care Team (Late st Contact Info) Description 08/20/2021 Telephone Family Medicine at [facility] [address] [place] [phone] Luis E Narayan MD [facility] DR LILI [place] [address] Appointment Social History Tobacco Use Types Packs/Day [...] Silvio Alonzo - 08/20/2021 9:12 AM EST Ilusis Message sent to patient * Telephone Encounter - Dixon Billings - 08/20/2021 8:45 AM EST Message: Patient calling in regards to having their appointment for 08.20.21 rescheduled as soon aspossible. Patient states it said in her MyDH that it was changed to a telehealth visit and she received a message stating that it was changed. Metal Reed Tuner was unable to find any message and the appointment showed as Office Visit not telehealth. Patient is unable to make it and commercial real estate underwriter was unable to find appointment within timeframe patient was looking for Ask caller their first and last name and relationship to the patient: Alize Gramajo Best time to call back: Any Ok to leave a message: yes Ok to send Collective message: yes Offered Appointment: Yes MA/Nurse/Wood Heel Cementer contacted via: Message: Yes Call: n/a Pager: n/a documented in this encounter Plan of Treatment Upcoming Encounters Date Type Department Care Team (Latest Contact Info) Description 08/29/2024 1:00 PM EST Hospital Encounter [place] [address] Roland Gooden MD [facility] [place] [address] 08/29/2024 1:00 PM EST - 08/29/2024 2:00 PM EST Surgery [place] [address] Roland Gooden MD [facility] [place] [address] EGD, UPPER GI ENDOSCOPY (WRVU 2.09) 10/02/2024 1:00 PM EDT Office [place] [address] Juanpablo Hernandez MD [facility] [place] [address] 10/21/2024 9:30 AM EDT Office Visit Internal Medicine at [address] [phone] Daryn Garrett MD [facility] DR LILI WALKER - PRIMARY CARE [place], [place] [phone] 01/30/2025 1:30 PM EDT Laboratory Appointment Lab at [facility] [place] Oncology [address] [place] [phone] 01/30/2025 3:[address] [place] [address] Arturo Cordero MD [facility] [place] [address] 01/30/2025 4:15 PM EDT Office Visit Hematology and Oncology at [facility] [place] [address] Arturo Cordero MD [facility] [place] [address] Scheduled Procedures Name Priority Associated Diagnoses Date/Ti me EGD, UPPER GI ENDOSCOPY (WRVU 2.09) Irritable bowel syndrome with constipation 08/29/2024 1:00 PM EST COLONOSCOPY, DIAGNOSTIC (WRVU 3.26) Irritable bowel syndrome with constipation 08/29/2024 1:00 PM EST documented as of this encounter Visit Diagnoses Not on filedocumented in this encounter Care Teams Bridge Painter Helper Relationship Specialty Start Date End Date Luis E Narayan MD [facility] [address] [place] [address] PCP - General Family Medicine 03/26/19 01/19/22 documented as of this encounter
--- OUTSIDE RECORDS SUMMARY | 2024-08-20 15:57 | XMS_ITS | Encounter Summary ---
Author Organization [facility] Address [facility] [place] [address] Care Team Providers Care Chamber Magistrate Name Role Phone Luis E Narayan MD Primary Care Provider +1- [phone] Reason for Visit * Reason Onset Date Comments Medication Refill 08/02/2021 Encounter Details Date Type Department Care Team (Late st Contact Info) Description 08/02/2021 Refill Family Medicine at [facility] [address] [place] [address] Luis E Narayan MD [facility] DR LILI [place] [address] Social History Tobacco Use Types Packs/Day Years [...] 1:00 PM EST Hospital En[place] [phone] Roland Gooden MD [facility] [address] 08/29/2024 1:00 PM EST - 08/29/2024 2:00 PM EST [place] [phone] Roland Gooden MD [facility] [place] [address] EGD, UPPER GI ENDOSCOPY (WRVU 2.09) 10/02/2024 1:00 PM EDT Office [place] [phone] Juanpablo Hernandez MD [facility] [place] [place] [address] 10/21/2024 9:30 AM EDT Office Visit Internal Medicine at [place] [address] [place] [address] Daryn Garrett MD [facility] DR [place] [address] 01/30/2025 1:30 PM EDT Laboratory Appointment Lab at [facility] Hematology Oncology [address] [place] [phone] 01/30/2025 3:[address] [place] [phone] Arturo Cordero MD [facility] [place] [address] 01/30/2025 4:15 PM EDT Office Visit Hematology [place] [address] Arturo Cordero MD [facility] [place] [address] Scheduled Procedures Name Priority Associated Diagnoses Date/Ti me EGD, UPPER GI ENDOSCOPY (WRVU 2.09) Irritable bowel syndrome with constipation 08/29/2024 1:00 PM EST COLONOSCOPY, DIAGNOSTIC (WRVU 3.26) Irritable bowel syndrome with constipation 08/29/2024 1:00 PM EST documented as of this encounter Visit Diagnoses Not on filedocumented in this encounter Care Teams Chamber Magistrate Relationship Specialty Start Date End Date Luis E Narayan MD [facility] DR LIL[place] [address] PCP - General Family Medicine 03/26/19 01/19/22 documented as of this encounter
--- OUTSIDE RECORDS SUMMARY | 2024-08-20 15:57 | XMS_ITS | Encounter Summary ---
Author Organization [facility] Address [facility] [place] [address] Care Team Providers Care Meter Installer Name Role Phone Luis E Narayan MD Primary Care Provider +1- [phone] Reason for Visit * Reason Comments Diabetes Encounter Details Date Type Department Care Team (Late st Contact Info) Description 10/26/2021 10:00 AM EDT Clinical Support Family Medicine at [facility] [address] [place] [address] Julia Low, [facility] Type [...] 1-2x daily\ ?? Sent new Rxs for Slan[employer]e CGM to review coverage Follow up plan: ?? Followup call in 2-4 weeks to review tolerance of Rybelsus, CGM coverage,SMBG/CGM data, and encourage lifestyle changes Subjective: Patient ID: Alize Gramajo is a 60 y.o. 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 Lunch: Tilghman with ham/turkey, Sudanese cheese, crisostomo, mustard with Doritos Dinner: Spaghetti [...] area transportation options [] Languages other than [place]: Automotive Collision Repair Instructor services provided No [] Allowances for cultural diversity: meal plan will be tailored for cultural food shavon [] Hearing: Apparatus Lineman provided No [] Vision impaired: print augmentation [...] 5 ??? fluticasone propionate (Flonase) 50 mcg/actuation [place], Suspension 1 spray by Each Nare route [...] 30 tablet 3 ??? FreeStyle Sanjana 2 [place] Misc 1 each by Other route daily. [...] TDAP 04/09/2019 , 06/24/2011 Prescription Insurance: [facility] [id number] Assessment and Recommendations: 1. Diabetes Goals of [...] for the individual, but in general the [place] Diabetes Association recommends a fasting blood sugar [...] 1-2x daily\ ?? Sent new Rxs for [employer] CGM to review coverage Follow up plan: [...] were made at the appointment and that [facility] is providing recommendations (summary located at top of note) for provider review and follow up. Jluia Low RPH 10/26/21 documented in this encounter Plan of Treatment Upcoming Encounters Date Type Department Care Team (Latest Contact Info) Description 08/29/2024 1:00 PM EST Hospital Encounter [place] [address] Roland Gooden MD [facility] [place] [address] 08/29/2024 1:00 PM EST - 08/29/2024 2:00 PM EST Surgery Gastroenterology at [place] [phone] Roland Gooden MD [facility] [place] [address] EGD, UPPER GI ENDOSCOPY (WRVU 2.09) 10/02/2024 1:00 PM EDT Office Visit Ophthalmology at [place] [phone] Juanpablo Hernandez MD [facility] [place] [address] 10/21/2024 9:30 AM EDT Office Visit Internal Medicine at [address] [phone] Daryn Garrett MD [facility] DR LILI WALKER [place] [address] 01/30/2025 1:30 PM EDT Laboratory Appointment Lab at [facility] [place]ology Oncology [address] [place], [place] [phone] 01/30/2025 3:[address] Scan at [place] [phone] Arturo Cordero MD [facility] HEMATOLOGY [place] [address] 01/30/2025 4:15 PM EDT Office Visit Hematology [place] [address] Arturo Cordero MD [facility] [place] [address] Scheduled Procedures Name Priority Associated Diagnoses Date/Ti [...] syndrome documented in this encounter Care Teams Meter Installer Relationship Specialty Start Date End Date Luis E Narayan MD [facility] DR LILI [place] [address] PCP - General Family Medicine 03/26/19 01/19/22 documented as of this encounter
--- OUTSIDE RECORDS SUMMARY | 2024-08-20 15:57 | XMS_ITS | Encounter Summary ---
Author Organization [facility] [place] [address] Care Team Providers Care Assessment Coordinator Name Role Phone Luis E Narayan MD Primary Care Provider +1- [phone] Encounter Details Date Type Department Care Team (Late st Contact Info) Description 11/17/2021 11:19 AM EDT - 11/17/2021 11:59 PM EDT Hospital [place] [address] Leandra Black, FACULTY MEMBER [facility] [place] [address] Malignant melanoma of conjunctiva, left; Malignant melanoma, [...] each 3 11/07/2022 11/02/2023 FreeStyle Sanjana 2 [place] MiscIndications:diabetes mellitus 1 each by Other [...] 10/01/2021 01/29/2022 fluticasone propionate (Flonase) 50 mcg/actuation [place], Suspension 1 spray by Each Nare route [...] 1:00 PM EST Hospital En[place] [address] Roland Gooden MD [facility] [place] [address] 08/29/2024 1:00 PM EST - 08/29/2024 2:00 PM EST [place] [address] Roland Gooden MD [facility] [place] [address] EGD, UPPER GI ENDOSCOPY (WRVU 2.09) 10/02/2024 1:00 PM EDT [place] [address] Juanpablo Hernandez MD [facility] [place] [address] 10/21/2024 9:30 AM EDT Office Visit Internal Medicine at [facility] [address] [place] [address] Daryn Garrett MD [facility] DR L[place] [address] 01/30/2025 1:30 PM EDT Laboratory Appointment Lab at [facility] Hematology Oncology [address] [place] [phone] 01/30/2025 3:[address] [place] [place] [address] Arturo Cordero MD [facility] DR [place] [address] 01/30/2025 4:15 PM EDT Office Visit [place] [address] Arturo Cordero MD [facility] [address] [place] [address] Scheduled Procedures Name Priority Associated Diagnoses Date/Ti [...] who have questions, please contact the health interior plant caretaker that requested your imaging first. ? Nakia Goetz, Staff Physician Electronically Signed Final Report ?? 11/17/2021 11:59 am Narrative 11/17/2021 12:00 PM EDT Ultrasound Soft Tissue ?(Signed Final 11/17/2021 11:59 am) Neck Left PATIENT INFO: ID #: ? [id number] ?: ??[birth year] (61 yrs)(F) Name: ? PATIENCE MANJARREZ ? Visit Date: 11/17/2021 11:42 am PERFORMED BY: Performed By: ? Diana Lowe RDMS Attending: ?Sofy COLVIN, Nakia Andrade Referred By: ?LAENDRA BLACK Location: ? [place] SERVICE(S) PROVIDED: USTN - Soft Tissue Neck or Head - [id number] ? [id number] INDICATIONS: History of left eye conjunctival melanoma [...] am) Neck Left PATIENT INFO: ID #: [id number] : 58 (61 yrs)(F) Name: PATIENCE MANJARREZ Visit Date: 11/17/2021 11:42 am PERFORMED BY: Performed By: Diana Lowe RDMS Attending: Nakia Goetz MD Referred By: LEANDRA BLACK Location: [place] SERVICE(S) PROVIDED: USTN - Soft Tissue Neck or Head - [id number] INDICATIONS: History of left eye conjunctival melanoma [...] who have questions, please contact the health interior plant caretaker that requested your imaging first. Nakia Goetz, Staff Physician Electronically Signed Final Report 11/17/2021 11:59 am Leandra Black APRN IMG US GEN ORDERAB LES documented in this encounter Visit Diagnoses Diagnosis Malignant melanoma of conjunctiva, left Malignant melanoma, unspecified site Irritable bowel syndrome with constipation Irritable bowel syndrome documented in this encounter Care Teams Assessment Coordinator Relationship Specialty Start Date End Date Luis E Narayan MD [facility] [place] [address] PCP - General Family Medicine 03/26/19 01/19/22 documented as of this encounter
--- OUTSIDE RECORDS SUMMARY | 2024-08-20 15:57 | XMS_ITS | Encounter Summary ---
Author Organization [facility] [place] [address] Care Team Providers Care Engineering Illustrator Name Role Phone Luis E Narayan MD Primary Care Provider +1- [phone] Reason for Visit * Reason Comments Leg Swelling Both sides Encounter Details Date Type Department Care Team (Latest Contact Info) Description 08/20/2021 10:40 AM EST Office Visit Family Medicine at [facility] [address] [place] [address] Hair Kelly MD [facility] [place] [address] Edema of lower extremity; Primary osteoarthritis of [...] Diagnosis Code ??? Coronary artery disease involving [place] coronary artery of [place] shoshone heart with angina pectoris I25.119 ??? Altered [...] 30 tablet 3 ??? FreeStyle Sanjana 2 [place] Misc 1 each by Other route daily. [...] 0 ??? fluticasone propionate (FLONASE) 50 mcg/actuation [place], Suspension 1 spray by [...] 1:00 PM EST Hospital Encounter [place] [phone] Roland Gooden MD [facility] [place] [address] 08/29/2024 1:00 PM EST - 08/29/2024 2:00 PM EST [place] [phone] Roland Gooden MD [facility] [place] [address] EGD, UPPER GI ENDOSCOPY (WRVU 2.09) 10/02/2024 1:00 PM EDT Office [place] [phone] Juanpablo Hernandez MD [facility] [place] [address] 10/21/2024 9:30 AM EDT Office Visit Internal Medicine at [place] [address] [place] [address] Daryn Garrett MD [facility] DR LILI [place] [address] 01/30/2025 1:30 PM EDT Laboratory Appointment Lab at [facility] Hematology Oncology [address] [place] [phone] 01/30/2025 3:[address] [place] [address] Arturo Cordero MD [facility] DR HEMATOLOGY [place] [address] 01/30/2025 4:15 PM EDT Office Visit Hematology [place] [phone] Arturo Cordero MD [facility] DR HEMATOLOGY [place] [address] Scheduled Procedures Name Priority Associated Diagnoses Date/Ti sd EGD, UPPER GI ENDOSCOPY (WRVU 2.09) Irritable bowel syndrome with constipation 08/29/2024 1:00 PM EST COLONOSCOPY, DIAGNOSTIC (WRVU 3.26) Irritable bowel syndrome with constipation 08/29/2024 1:00 PM EST documented as of this encounter Visit Diagnoses Diagnosis Edema of lower extremity Edema Primary osteoarthritis of both knees Primary localized osteoarthrosis, lower leg Irritable bowel syndrome with constipation Irritable bowel syndrome documented in this encounter Care Teams Engineering Illustrator Relationship Specialty Start Date End Date Luis E Narayan MD [facility] DR LILI W[place] [address] PCP - General Family Medicine 03/26/19 01/19/22 documented as of this encounter
--- OUTSIDE RECORDS SUMMARY | 2024-08-20 15:57 | XMS_ITS | Encounter Summary ---
Author Organization [place] [address] Care Team Providers Care Chief Mechanical Officer Name Role Phone Luis E Narayan MD Primary Care Provider +1- [phone] Reason for Visit * Reason Onset Date Comments Medication Refill 12/10/2021 Encounter Details Date Type Department Care Team (Late st Contact Info) Description 12/10/2021 Refill Family Medicine at [facility] [address] [place] [phone] Bereket Latham PA [facility] [place] [address] Essential hypertension Social History Tobacco Use Types [...] 1:00 PM EST Hospital Encounter [place] [phone] Roland Gooden MD [facility] [place] [address] 08/29/2024 1:00 PM EST - 08/29/2024 2:00 PM EST Surgery [place] [address] Roland Gooden MD [facility] [place] [address] EGD, UPPER GI ENDOSCOPY (WRVU 2.09) 10/02/2024 1:00 PM EDT Office [place] [phone] Juanpablo Hernandez MD [facility] [place] [address] 10/21/2024 9:30 AM EDT Office Visit Internal Medicine at [place] [address] [place] [address] Daryn Garrett MD [facility] DR LILI WALKER [place] [address] 01/30/2025 1:30 PM EDT Laboratory Appointment Lab [place] [facility] [place] [address] [place] [phone] 01/30/2025 3:[address] [place] [phone] Arturo Cordero MD [facility] DR HEMATOLOGY [place] [address] 01/30/2025 4:15 PM EDT Office Visit Hematology [place] [phone] Arturo Cordero MD [facility] DR HEMATOLOGY [place] [address] Scheduled Procedures Name Priority Associated Diagnoses Date/Ti nd EGD, UPPER GI ENDOSCOPY (WRVU 2.09) Irritable bowel syndrome with constipation 08/29/2024 1:00 PM EST COLONOSCOPY, DIAGNOSTIC (WRVU 3.26) Irritable bowel syndrome with constipation 08/29/2024 1:00 PM EST documented as of this encounter Visit Diagnoses Diagnosis Essential hypertension Unspecified essential hypertension Irritable bowel syndrome with constipation Irritable bowel syndrome documented in this encounter Care Teams Chief Mechanical Officer Relationship Specialty Start Date End Date Luis E Narayan MD [facility] DR LILI WALKER-[place] [address] PCP - General Family Medicine 03/26/19 01/19/22 documented as of this encounter
--- OUTSIDE RECORDS SUMMARY | 2024-08-20 15:57 | XMS_ITS | Encounter Summary ---
[place] [address] Care Team Providers Care Business Risk Analyst Name Role Phone Luis E Narayan MD Primary Care Provider +1- [phone] Encounter Details Date Type Department Care Team (Late st Contact Info) Description 12/14/2021 Telephone [place] [phone] Gris Galloway, RN Social History Tobacco Use [...] EGD and colonoscopy performed last year at [facility]. Was seen in [facility] ED recently and PPI changed [...] (Latest Contact Info) Description 08/29/2024 1:00 PM [facility] Hospital En[place] [address] Roland Gooden MD [facility] [place] [address] 08/29/2024 1:00 PM EST - 08/29/2024 2:00 PM EST Surgery Gastroenterology at [address] Roland Gooden MD [facility] [place] [address] EGD, UPPER GI ENDOSCOPY (WRVU 2.09) 10/02/2024 1:00 PM EDT Office Visit Ophthalmology at [place] [phone] Juanpablo Hernandez MD [facility] [place] [address] 10/21/2024 9:30 AM EDT Office Visit Internal Medicine at [address] [phone] Daryn Garrett MD [facility] [place] [address] 01/30/2025 1:30 PM EDT Laboratory Appointment Lab at [facility] [place] [address] [place], [place] [phone] 01/30/2025 3:[address] Scan at [place] [phone] Arturo Cordero MD [facility] [place] [address] 01/30/2025 4:15 PM EDT Office Visit Hematology and Oncology at [place] [phone] Arturo Cordero MD [facility] [place] [address] Scheduled Procedures Name Priority Associated Diagnoses Date/Ti me EGD, UPPER GI ENDOSCOPY (WRVU 2.09) Irritable bowel syndrome with constipation 08/29/2024 1:00 PM EST COLONOSCOPY, DIAGNOSTIC (WRVU 3.26) Irritable bowel syndrome with constipation 08/29/2024 1:00 PM EST documented as of this encounter Visit Diagnoses Not on filedocumented in this encounter Care Teams Business Risk Analyst Relationship Specialty Start Date End Date Luis E Narayan MD [facility] [address] [place] [address] PCP - General Family Medicine 03/26/19 01/19/22 documented as of this encounter
--- OUTSIDE RECORDS SUMMARY | 2024-08-20 15:57 | XMS_ITS | Encounter Summary ---
Author Organization [facility] [place] [address] Care Team Providers Care Boat Rigger Name Role Phone Luis E Narayan MD Primary Care Provider Reason for Referral * Consultation (Routine) - Closed Specialty Diagnoses / Procedures Referred By Gonzalez kumari Referred To Contact Dermatology Diagnoses Malignant melanoma of conjunctiva, left Shane Givens MD [facility] [place] [address] [facility] Dermatology [address] [place] [address] Referral ID Status Reason Start Date Expiration Date V isits Requested Visits Authorized [id number] Closed Consult, Test & Treat 11/17/2021 11/17/2022 1 1 Encounter Details Date Type Department Care Team (Late st Contact Info) Description 11/17/2021 1:30 PM EDT Office [place] [address] Shane Givens MD Malignant melanoma of conjunctiva, left; Diabetic eye [...] 1:00 PM EST Hospital Encounter [place] [address] Roland Gooden MD [facility] [place] [address] 08/29/2024 1:00 PM EST - 08/29/2024 2:00 PM EST Surgery [place] [phone] Roland Gooden MD [facility] [place] [address] EGD, UPPER GI ENDOSCOPY (WRVU 2.09) 10/02/2024 1:00 PM EDT Office Visit Ophthalmology at [place] [phone] Juanpablo Hernandez MD [facility] [address] 10/21/2024 9:30 AM EDT Office Visit Internal Medicine at [address] [place] [phone] Daryn Garrett MD [facility] [place] [address] 01/30/2025 1:30 PM EDT Laboratory Appointment Lab at [facility] [place]ematology Oncology [address] [place], [place] [phone] 01/30/2025 3:[address] Scan at [place] [phone] Arturo Cordero MD [facility] DR [place] [address] 01/30/2025 4:15 PM EDT Office Visit Hematology and Oncology at [place] [phone] Arturo Cordero MD [facility] DR [place] [address] Scheduled Procedures Name Priority Associated Diagnoses Date/Ti [...] syndrome documented in this encounter Care Teams Boat Rigger Relationship Specialty Start Date End Date Luis E Narayan MD [facility] DR LIL[facility] [place] [address] PCP - General Family Medicine 03/26/19 01/19/22 documented as of this encounter
--- OUTSIDE RECORDS SUMMARY | 2024-08-20 15:57 | XMS_ITS | Encounter Summary ---
Author Organization Formerly [facility] Address [facility] [place] [address] Care Team Providers Care New Car Inspector Name Role Phone Rodney Padilla MD Primary Care Provider Reason for Visit * Reason Onset Date Comments Medication Refill 10/11/2021 Encounter Details Date Type Department Care Team (Late st Contact Info) Description 10/11/2021 Refill Family Medicine at [facility] [address] [place] [address] Luis E Narayan MD [facility] DR LILI WALKER-[place] [address] Type 2 diabetes mellitus without long-term current [...] 1:00 PM EST Hospital Encounter [place] [phone] Roland Gooden MD [facility] [place] [address] 08/29/2024 1:00 PM EST - 08/29/2024 2:00 PM EST Surgery Gastroenterology at [place] [phone] Roland Gooden MD [facility] [place] [address] EGD, UPPER GI ENDOSCOPY (WRVU 2.09) 10/02/2024 1:00 PM EDT Office Visit Ophthalmology at [place] [phone] Juanpablo Hernandez MD [facility] [place] [address] 10/21/2024 9:30 AM EDT Office Visit Internal Medicine at [address] [phone] Daryn Garrett MD [facility] DR LIL[address] WALKER - [place] [address] 01/30/2025 1:30 PM EDT Laboratory Appointment Lab at [facility] [place]ology Oncology [address] [place] [phone] 01/30/2025 3:[address] [place] [address] Arturo Cordero MD [facility] HEMATOLOGY [place] [address] 01/30/2025 4:15 PM EDT Office Visit Hematology [place] [address] Arturo Cordero MD [facility] DR HEMATOLOGY [place] [address] Scheduled Procedures Name Priority Associated Diagnoses Date/Ti [...] syndrome documented in this encounter Care Teams New Car Inspector Relationship Specialty Start Date End Date Rodney Padilla MD PCP - General 07/18/22 04/09/24 documented as of this encounter
--- OUTSIDE RECORDS SUMMARY | 2024-08-20 15:57 | XMS_ITS | Encounter Summary ---
Author Organization Replaced By [facility] Address [facility] [place] [address] Care Team Providers Care Mobile Heavy Equipment Mechanic Name Role Phone Luis E Narayan MD Primary Care Provider +1- [phone] Reason for Visit * Reason Onset Date Comments Medication Refill 08/02/2021 Encounter Details Date Type Department Care Team (Late st Contact Info) Description 08/02/2021 Refill Family Medicine at [facility] [address] [place] [address] Luis E Narayan MD [facility] DR LILI [place] [address] Type 2 diabetes mellitus without long-term current [...] 1:00 PM EST Hospital Encounter [place] [address] Roland Gooden MD [facility] [place] [place] [address] 08/29/2024 1:00 PM EST - 08/29/2024 2:00 PM EST [place] [phone] Roland Gooden MD [facility] [place] [address] EGD, UPPER GI ENDOSCOPY (WRVU 2.09) 10/02/2024 1:00 PM EDT Office [place] [address] Juanpablo Hernandez MD [facility] [place] [address] 10/21/2024 9:30 AM EDT Office Visit Internal Medicine at [place] [address] [place] [address] Daryn Garrett MD [facility] LILI [place]ER [place] [address] 01/30/2025 1:30 PM EDT Laboratory Appointment Lab at [facility] Hematology Oncology [address] [place] [phone] 01/30/2025 3:[address] [place] [phone] Arturo Cordero MD [facility] [place] [address] 01/30/2025 4:15 PM EDT Office Visit Hematology [place] [phone] Arturo Cordero MD [facility] [place]ATOLOGY [place] [address] Scheduled Procedures Name Priority Associated Diagnoses Date/Ti [...] documented in this encounter Care Teams Mobile Heavy Equipment Mechanic Relationship Specialty Start Date End Date Luis E Narayan MD [facility] DR LILI [place] [address] PCP - General Family Medicine 03/26/19 01/19/22 documented as of this encounter
--- OUTSIDE RECORDS SUMMARY | 2024-08-20 15:57 | XMS_ITS | Encounter Summary ---
Author Organization [facility] Address [facility] [place] [address] Care Team Providers Care Defence Force Member Other Ranks Name Role Phone Luis E Narayan MD Primary Care Provider [phone]- [phone] Reason for Visit * Reason Onset Date Comments Prior Authorization 08/06/2021 Ozempic (0.2 5 or 0.5 MG/DOSE) 2MG/1.5ML pen-injectors Encounter Details Date Type Department Care Team (Late st Contact Info) Description 08/06/2021 Telephone Family Medicine at [facility] [address] [place] [phone] Aida Aguayo, [facility] Prior Authorization (Ozempic (0.25 or 0.5 MG/DOSE) [...] Awaiting response from insurance. [employer] Anderson: [id number] * Telephone Encounter - Aida Aguayo MA - 08/06/2021 2:08 PM EST PA submitted. Awaiting response from insurance. * Telephone Encounter - Aida Aguayo MA - 08/06/2021 1:55 PM EST Medication Prior Authorization Request received via: [facility] Patient: Alize Gramajo Patient : 1960 Insurance Company: [place] Sent via: [facility] Anderson: [id number] Physician: Luis E Narayan MD Medication Requested: [...] 1:00 PM EST Hospital Encounter [place] [address] Roland Gooden MD [facility] [place] [address] 08/29/2024 1:00 PM EST - 08/29/2024 2:00 PM EST Surgery [place] [phone] Roland Gooden MD [facility] [place] [address] EGD, UPPER GI ENDOSCOPY (WRVU 2.09) 10/02/2024 1:00 PM EDT Office Visit Ophthalmology at [place] [phone] Juanpablo Hernandez MD [facility] [place] [address] 10/21/2024 9:30 AM EDT Office Visit Internal Medicine at [address] [place] [phone] Daryn Garrett MD [facility] DR LILI [place] [address] 01/30/2025 1:30 PM EDT Laboratory Appointment Lab at [facility] [place] [place] Hematology Oncology [address] [place] [phone] 01/30/2025 3:[address] Scan at [place] [phone] Arturo Cordero MD [facility] [place] [address] 01/30/2025 4:15 PM EDT Office Visit Hematology [place] [phone] Arturo Cordero MD [facility] [place] [address] Scheduled Procedures Name Priority Associated Diagnoses Date/Ti or EGD, UPPER GI ENDOSCOPY (WRVU 2.09) Irritable bowel syndrome with constipation 08/29/2024 1:00 PM EST COLONOSCOPY, DIAGNOSTIC (WRVU 3.26) Irritable bowel syndrome with constipation 08/29/2024 1:00 PM EST documented as of this encounter Visit Diagnoses Not on filedocumented in this encounter Care Teams Defence Force Member Other Ranks Relationship Specialty Start Date End Date Luis E Narayan MD [facility] DR LIL[facility] [place] [address] PCP - General Family Medicine 03/26/19 01/19/22 documented as of this encounter
--- OUTSIDE RECORDS SUMMARY | 2024-08-20 15:57 | XMS_ITS | Encounter Summary ---
Author Organization [facility] Address [facility] [place] [address] Care Team Providers Care Mold Carpenter Name Role Phone Luis E Narayan MD Primary Care Provider [phone]- [phone] Reason for Visit * Reason Onset Date Comments Medication Refill 09/07/2021 Encounter Details Date Type Department Care Team (Late st Contact Info) Description 09/07/2021 Refill Family Medicine at [facility] [address] [place] [address] Luis E Narayan MD [facility] DR LILI WALKER[place] [address] Social History Tobacco Use Types Packs/Day Years [...] Refills ??? fluticasone propionate (Flonase) 50 mcg/actuation [place], Suspension 16 g 11 Si spray by Each Nare route 2 times daily. Last office visit: seen today for teleheatlh with Yocasta Low Last refill: 08/04/2020 documented in this encounter Plan of Treatment Upcoming Encounters Date Type Department Care Team (Latest Contact Info) Description 08/29/2024 1:00 PM EST Hospital Encounter [place] [address] Roland Gooden MD [facility] [place] [address] 08/29/2024 1:00 PM EST - 08/29/2024 2:00 PM EST Surgery Gastroenterology at [place] [phone] Roland Gooden MD [facility] [place] [address] EGD, UPPER GI ENDOSCOPY (WRVU 2.09) 10/02/2024 1:00 PM EDT Office Visit Ophthalmology at [place] [phone] Juanpablo Hernandez MD [facility] [place] [address] 10/21/2024 9:30 AM EDT Office Visit Internal Medicine at [address] [phone] Daryn Garrett MD [facility] DR LILI [place]ER [place] [address] 01/30/2025 1:30 PM EDT Laboratory Appointment Lab at [facility] [place] [address] [place], [place] [phone] 01/30/2025 3:[address] Scan at [place] [phone] Arturo Cordero MD [facility] HEMATOLOGY [place] [address] 01/30/2025 4:15 PM EDT Office Visit Hematology [place] [address] Arturo Cordero MD [facility] HEMATOLOGY [place] [address] Scheduled Procedures Name Priority Associated Diagnoses Date/Ti me EGD, UPPER GI ENDOSCOPY (WRVU 2.09) Irritable bowel syndrome with constipation 08/29/2024 1:00 PM EST COLONOSCOPY, DIAGNOSTIC (WRVU 3.26) Irritable bowel syndrome with constipation 08/29/2024 1:00 PM EST documented as of this encounter Visit Diagnoses Not on filedocumented in this encounter Care Teams Mold Carpenter Relationship Specialty Start Date End Date Luis E Narayan MD [facility] [address] [place] [address] PCP - General Family Medicine 03/26/19 01/19/22 documented as of this encounter
--- OUTSIDE RECORDS SUMMARY | 2024-08-20 15:57 | XMS_ITS | Encounter Summary ---
Author Organization [facility]ly [facility] Address [facility] [place] [address] Care Team Providers Care Fish Rod Maker Name Role Phone Luis E Narayan MD Primary Care Provider [phone] Reason for Visit * Reason Comments Diabetes * Consultation (Routine) - Closed Specialty Diagnoses / Procedures Referred By Gonzalez kumari Referred To Contact Family Medicine Diagnoses Type 2 diabetes mellitus with other specified complication, without long-term current use of insulin Tamera Khan, PLUSH CUTTER [facility] DR LILI WALKER[place] [address] Julia Low [facility] Referral ID Status Reason Start Date Expiration Date V isits Requested Visits Authorized [id number] Closed Assume Subset of Care 06/14/2021 06/14/2022 1 1 Encounter Details Date Type Department Care Team (Late st Contact Info) Description 07/27/2021 11:00 AM EST Clinical Support Family Medicine at [facility] [address] [place] [address] Julia Low [facility] Type 2 diabetes mellitus without [...] mg BID ?? Sent testing supplies to [employer] ?? Will recommend Ozempic 0.25 mg once [...] antithrombotic long-term use, Arthritis, Asthma, Atherosclerosis of [place] coronary artery ofnative heart with angina [...] # of Missed doses/week None - Uses Invarium drug - rx insurance [employer] [id number] - Needs testing supplies - would prefer [...] not want to eat every day Lunch: [place] with ham/turkey nicaraguan cheese crisostomo and mustard with Doritos Dinner: [...] area transportation options [] Languages other than Israeli: Hoop Rolls Operator services provided No [] Allowances for cultural diversity: meal plan will be tailored for cultural food shavon [] Hearing: Coremaking Supervisor provided No [] Vision impaired: print [...] 180 tablet 1 ??? FreeStyle Sanjana 2 [place] Misc 1 each by Other route daily. [...] 0 ??? fluticasone propionate (FLONASE) 50 mcg/actuation [place], Suspension 1 spray [...] 09/07/2005 TDAP 04/09/2019 , 06/24/2011 Prescription Insurance: [employer] [id number] Assessment and Recommendations: 1. Diabetes Goals of [...] for the individual, but in general the [place] [employer] recommends a fasting blood sugar [...] mg BID ?? Sent testing supplies to [employer] ?? Will recommend Ozempic 0.25 mg once [...] made at the appointment and that [facility] is providing recommendations (summary located at top of note) for provider review and follow up. Julia Low [facility] 07/27/21 documented in this encounter Plan of Treatment Upcoming Encounters Date Type Department Care Team (Latest Contact Info) Description 08/29/2024 1:00 PM EST Hospital Encounter [place] [phone] Roland Gooden MD [facility] [place] [address] 08/29/2024 1:00 PM EST - 08/29/2024 2:00 PM EST [place] [phone] Roland Gooden MD [facility] [place] [address] EGD, UPPER GI ENDOSCOPY (WRVU 2.09) 10/02/2024 1:00 PM EDT Office [place] [phone] Juanpablo Hernandez MD [facility] [place] [address] 10/21/2024 9:30 AM EDT Office Visit Internal Medicine at [address] [phone] Daryn Garrett MD [facility] DR LILI WALKER - [place] [address] 01/30/2025 1:30 PM EDT Laboratory Appointment Lab at [facility] [place] Oncology [address] [place] [phone] 01/30/2025 3:[address] [place] [address] Arturo Cordero MD [facility] HEMATOLOGY [place] [address] 01/30/2025 4:15 PM EDT Office Visit Hematology [place] [address] Arturo Cordero MD [facility] DR HEMATOLOGY [place] [address] Scheduled Procedures Name Priority Associated Diagnoses Date/Ti [...] syndrome documented in this encounter Care Teams Fish Rod Maker Relationship Specialty Start Date End Date Luis E Narayan MD [facility] DR LILI WALKER[place] [address] PCP - General Family Medicine 03/26/19 01/19/22 documented as of this encounter
--- OUTSIDE RECORDS SUMMARY | 2024-08-20 15:57 | XMS_ITS | Encounter Summary ---
Author Organization [facility] Address [facility] [place] [address] Care Team Providers Care Retail Cosmetics Sales Beauty Advisor Name Role Phone Daryn Garrett MD Primary Care Provider Reason for Visit * Reason Onset Date Comments Medication Refill 09/08/2021 Encounter Details Date Type Department Care Team (Late st Contact Info) Description 09/08/2021 Refill Family Medicine at [facility] [address] [place] [address] Luis E Narayan MD [facility] DR LILI WALK[place] [address] Social History Tobacco Use Types Packs/Day Years [...] 1:00 PM EST Hospital Encounter [place] [phone] Roland Gooden MD [facility] [place] [address] 08/29/2024 1:00 PM EST - 08/29/2024 2:00 PM EST Surgery [place] [phone] Roland Gooden MD [facility] [place] [address] EGD, UPPER GI ENDOSCOPY (WRVU 2.09) 10/02/2024 1:00 PM EDT Office [place] [phone] Juanpablo Hernandez MD [facility] [place] [address] 10/21/2024 9:30 AM EDT Office Visit Internal Medicine at [place] [address] [place] [address] Daryn Garrett MD [facility] [place] [address] 01/30/2025 1:30 PM EDT Laboratory Appointment Lab [place] [facility] [place] [address] [place] [phone] 01/30/2025 3:[address] [place] [phone] Arturo Cordero MD [facility] HEMATOLOGY [place] [address] 01/30/2025 4:15 PM EDT Office Visit Hematology [place] [phone] Arturo Cordero MD [facility] HEMATOLOGY [place] [address] Scheduled Procedures Name Priority Associated Diagnoses Date/Ti me EGD, UPPER GI ENDOSCOPY (WRVU 2.09) Irritable bowel syndrome with constipation 08/29/2024 1:00 PM EST COLONOSCOPY, DIAGNOSTIC (WRVU 3.26) Irritable bowel syndrome with constipation 08/29/2024 1:00 PM EST documented as of this encounter Visit Diagnoses Not on filedocumented in this encounter Care Teams Retail Cosmetics Sales Beauty Advisor Relationship Specialty Start Date End Date Daryn Garrett MD [facility] [place] [address] PCP - General 04/10/24 documented as of this encounter
--- OUTSIDE RECORDS SUMMARY | 2024-08-20 15:57 | XMS_ITS | Encounter Summary ---
Author Organization [facility] Address [facility] [place] [address] Care Team Providers Care Healthcare Consulting Manager Name Role Phone Luis E Narayan MD Primary Care Provider +1- [phone] Reason for Visit * Reason Onset Date Comments Medication Refill 12/10/2021 Encounter Details Date Type Department Care Team (Late st Contact Info) Description 12/10/2021 Refill Family Medicine at [facility] [address] [place] [address] Luis E Narayan MD [facility] LILI [place] [address] COPD Social History Tobacco Use Types Packs/Day [...] [facility] Hospital Encounter Gastroenterology at [place] [phone] Roland Gooden MD [facility] [place] [address] 08/29/2024 1:00 PM EST - 08/29/2024 2:00 PM EST Surgery Gastroenterology at [place] [phone] Roland Gooden MD [facility] [place] [address] EGD, UPPER GI ENDOSCOPY (WRVU 2.09) 10/02/2024 1:00 PM EDT Office [place] [phone] Juanpablo Hernandez MD [facility] [place] [address] 10/21/2024 9:30 AM EDT Office Visit Internal Medicine at [address] [phone] Daryn Garrett MD [facility] LILI [place] [address] 01/30/2025 1:30 PM EDT Laboratory Appointment Lab at [facility] Hematology Oncology [address] [place] [phone] 01/30/2025 3:[address] [place] [address] Arturo Cordero MD [facility] [place] [address] 01/30/2025 4:15 PM EDT Office Visit Hematology [place] [address] Arturo Cordero MD [facility] [place] [address] Scheduled Procedures Name Priority Associated Diagnoses Date/Ti me EGD, UPPER GI ENDOSCOPY (WRVU 2.09) Irritable bowel syndrome with constipation 08/29/2024 1:00 PM EST COLONOSCOPY, DIAGNOSTIC (WRVU 3.26) Irritable bowel syndrome with constipation 08/29/2024 1:00 PM EST documented as of this encounter Visit Diagnoses Diagnosis COPD Simple chronic bronchitis Irritable bowel syndrome with constipation Irritable bowel syndrome documented in this encounter Care Teams Healthcare Consulting Manager Relationship Specialty Start Date End Date Luis E Narayan MD [facility] [address] [place] [address] PCP - General Family Medicine 03/26/19 01/19/22 documented as of this encounter
--- OUTSIDE RECORDS SUMMARY | 2024-08-20 15:57 | XMS_ITS | Encounter Summary ---
Author Organization [facility] Address [facility] [place] [address] Care Team Providers Care Property And Supply Officer Name Role Phone Luis E Narayan MD Primary Care Provider +1- [phone] Reason for Visit * Reason Comments Diabetes Encounter Details Date Type Department Care Team (Late st Contact Info) Description 09/24/2021 11:30 AM EDT TH Visit (TeleHealth) Family Medicine at [facility] [address] [place] [address] Julia Low, [facility] Type 2 diabetes mellitus without [...] antithrombotic long-term use, Arthritis, Asthma, Atherosclerosis of [place] 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 [...] afternoon SMBG: SMBG daily (FBG) Misplaced prescribed Etherstacke CGM when moving Before Brkfast Before Supper [...] 08/26/21 09/09/21 Daily Avg 157 168 eA1c [id number] 8.46 Acute Complications Have you ever had [...] enough to eat eggs every day. Lunch: [place] with ham/turkey, Bulgarian cheese, crisostomo, mustard with Doritos Dinner: Spaghetti [...] transportation options [] Languages other than Qatari: Automatic Pinsetter Mechanic services provided No [] Allowances for cultural diversity: meal plan will be tailored for cultural food shavon [] Hearing: Nnps provided No [] Vision impaired: print augmentation for visual impairment [x] No learning barriers identified Patient reports that after being sick with a virus, and a hospital admission involving levothyroxine, she has speech and cognitive problems. Objective: Reconciled Medication List: Current Outpatient Medications Medication Sig Dispense Refill ??? fluticasone propionate (Flonase) 50 mcg/actuation [place], Suspension 1 spray by Each Nare [...] 30 tablet 3 ??? FreeStyle Sanjana 2 [place] Misc 1 each by Other route daily. [...] 09/07/2005 TDAP 04/09/2019 , 06/24/2011 Prescription Insurance: [facility] [id number] Assessment and Recommendations: 1. Diabetes Goals of [...] for the individual, but in general the [place] [employer] Association recommends a fasting blood sugar [...] made at the appointment and that [facility] is providing recommendations (summary located at top of note) for provider review and follow up. Julia Low RPH 09/24/21 documented in this encounter Plan of Treatment Upcoming Encounters Date Type Department Care Team (Latest Contact Info) Description 08/29/2024 1:00 PM EST Hospital Encounter [place] [address] Roland Gooden MD [facility] [place] [address] 08/29/2024 1:00 PM EST - 08/29/2024 2:00 PM EST Surgery [place] [address] Roland Gooden MD [facility] [place] [address] EGD, UPPER GI ENDOSCOPY (WRVU 2.09) 10/02/2024 1:00 PM EDT Office [place] [address] Juanpablo Hernandez MD [facility] [place] [address] 10/21/2024 9:30 AM EDT Office Visit Internal Medicine at [address] [phone] Daryn Garrett MD [facility] DR LILI WALKER [place] [address] 01/30/2025 1:30 PM EDT Laboratory Appointment Lab at [facility] Hematology Oncology [address] [place] [phone] 01/30/2025 3:[address] [place] [address] Arturo Cordero MD [facility] HEMATOLOGY [place] [address] 01/30/2025 4:15 PM EDT Office Visit Hematology and Oncology at [facility] [place] [address] Arturo Cordero MD [facility] DR HEMATOLOGY [place] [address] Scheduled Procedures Name Priority Associated Diagnoses Date/Ti [...] syndrome documented in this encounter Care Teams Property And Supply Officer Relationship Specialty Start Date End Date Luis E Narayan MD [facility] DR LILI WALKER-[place] [address] PCP - General Family Medicine 03/26/19 01/19/22 documented as of this encounter
--- OUTSIDE RECORDS SUMMARY | 2024-08-20 15:57 | XMS_ITS | Encounter Summary ---
Author Organization [facility] Address [facility] [place] [address] Care Team Providers Care Master Chef Name Role Phone Luis E Narayan MD Primary Care Provider +1- [phone] Encounter Details Date Type Department Care Team (Late st Contact Info) Description 11/08/2021 Telephone Family Medicine at [facility] [address] [place] [phone] Luis E Narayan MD [facility] DR LILI AZEVEDO[place] [address] Social History Tobacco Use Types Packs/Day Years [...] 1:00 PM EST Hospital Encounter G[place] [phone] Roland Gooden MD [facility] [place] [address] 08/29/2024 1:00 PM EST - 08/29/2024 2:00 PM EST Surgery Gastro[place] [phone] Roland Gooden MD [facility] [place] [address] EGD, UPPER GI ENDOSCOPY (WRVU 2.09) 10/02/2024 1:00 PM EDT Office Visit [place] [address] Juanpablo Hernandez MD [facility] [place] [address] 10/21/2024 9:30 AM EDT Office Visit Internal Medicine at [place] [address] [place] [phone] Daryn Garrett MD [facility] DR LILI [place]EVEDO [place] [address] 01/30/2025 1:30 PM EDT Laboratory Appointment Lab at [facility] Hematology Oncology [address] [place] [phone] 01/30/2025 3:[address] [place] [phone] Arturo Cordero MD [facility] H[place]ATOLOG[place] [address] 01/30/2025 4:15 PM EDT Office Visit Hematology [place] [address] Arturo Cordero MD [facility] DR HEMATOLOG[place] [address] Scheduled Procedures Name Priority Associated Diagnoses Date/Ti me EGD, UPPER GI ENDOSCOPY (WRVU 2.09) Irritable bowel syndrome with constipation 08/29/2024 1:00 PM EST COLONOSCOPY, DIAGNOSTIC (WRVU 3.26) Irritable bowel syndrome with constipation 08/29/2024 1:00 PM EST documented as of this encounter Visit Diagnoses Not on filedocumented in this encounter Care Teams Master Chef Relationship Specialty Start Date End Date Luis E Narayan MD [facility] DR LILI AZEV[place] [address] PCP - General Family Medicine 03/26/19 01/19/22 documented as of this encounter
--- OUTSIDE RECORDS SUMMARY | 2024-08-20 15:57 | XMS_ITS | Encounter Summary ---
Author Organization [facility] Address [facility] [place] [address] Care Team Providers Care Change Management Expert Name Role Phone Luis E Narayan MD Primary Care Provider [phone]- [phone] Reason for Visit * Reason Comments Diabetes Encounter Details Date Type Department Care Team (Late st Contact Info) Description 09/09/2021 2:00 PM EST TH Visit (TeleHealth) Family Medicine at [facility] [address] [place] [address] Julia Low, [facility] Type 2 diabetes mellitus without [...] VPharm is active she is able to order picker the med tomorrow. Also Spoke to [...] 149 Highest 188 Daily Avg 168 eA1c 8.236173 Prior Averages: 08/26/21 AM Average 157 Lowest 134 Highest 182 Daily Avg 157 eA1c 8.425972 Acute Complications Have you ever had a [...] enough to eat eggs every day. Lunch: [place] with ham/turkey, [place] cheese, crisostomo, mustard with [...] area transportation options [] Languages other than Irish: Navy Airspace Officer services provided No [] Allowances for cultural diversity: meal plan will be tailored for cultural food shavon [] Hearing: Prn Physical Therapist provided No [] Vision impaired: print augmentation [...] 30 tablet 3 ??? FreeStyle Sanjana 2 [place] Misc 1 each by Other route daily. [...] 0 ??? fluticasone propionate (FLONASE) 50 mcg/actuation [place], Suspension 1 spray by Each Nare [...] 06/24/2011 Prescription Insurance: [facility] [id number] Assessment and Recommendations: 1. Diabetes Goals of [...] now sortedout and shoul calin vazquez to order picker Ozempic to start tomorrow o Denies [...] were made at the appointment and that [facility] is providing recommendations (summary located at top of note) for provider review and follow up. Julia Low RPH 09/09/21 documented in this encounter Plan of Treatment Upcoming Encounters Date Type Department Care Team (Latest Contact Info) Description 08/29/2024 1:00 PM EST Hospital Encounter [place] [address] Roland Gooden MD [facility] [place] [address] 08/29/2024 1:00 PM EST - 08/29/2024 2:00 PM EST Surgery [place] [phone] Roland Gooden MD [facility] [place] [address] EGD, UPPER GI ENDOSCOPY (WRVU 2.09) 10/02/2024 1:00 PM EDT Office [place] [phone] Juanpablo Hernandez MD [facility] [place] [address] 10/21/2024 9:30 AM EDT Office Visit Internal Medicine at [address] [phone] Daryn Garrett MD [facility] DR LILI WALKER - PRIMARY CARE [place], [place] [phone] 01/30/2025 1:30 PM EDT Laboratory Appointment Lab at [facility] Hematology Oncology [address] [place] [phone] 01/30/2025 3:[address] [place] [address] Arturo Cordero MD [facility] DR HEM[place] [address] 01/30/2025 4:15 PM EDT Office Visit Hematology [place] [address] Arturo Cordero MD [facility] DR HEM[place]Y [place] [address] Scheduled Procedures Name Priority Associated Diagnoses Date/Ti [...] syndrome documented in this encounter Care Teams Change Management Expert Relationship Specialty Start Date End Date Luis E Narayan MD [facility] DR LILI [place] [address] PCP - General Family Medicine 03/26/19 01/19/22 documented as of this encounter
--- OUTSIDE RECORDS SUMMARY | 2024-08-20 15:57 | XMS_ITS | Encounter Summary ---
Author Organization [facility] Address [facility] [place] [address] Care Team Providers Care Licensed Practical Nurse Name Role Phone Daryn Garrett MD Primary Care Provider [phone] Encounter Details Date Type Department Care Team (Late st Contact Info) Description 09/10/2021 Refill Family Medicine at [facility] [address] [place] [address] Luis E Narayan MD [facility] DR LILI AZEVED[place] [address] Social History Tobacco Use Types Packs/Day Years [...] 1:00 PM EST Hospital Encounter Gastroenterology at [place] [phone] Roland Gooden MD [facility] [place] [address] 08/29/2024 1:00 PM EST - 08/29/2024 2:00 PM EST Surgery [place] [phone] Roland Gooden MD [facility] [place] [address] EGD, UPPER GI ENDOSCOPY (WRVU 2.09) 10/02/2024 1:00 PM EDT Office Visit Ophthalmology at [place] [phone] Juanpablo Hernandez MD [facility] [place] [address] 10/21/2024 9:30 AM EDT Office Visit Internal Medicine at [facility] [address] [place] [address] Daryn Garrett MD [facility] [place] [address] 01/30/2025 1:30 PM EDT Laboratory Appointment Lab at [facility] Hematology Oncology [address] [place] [phone] 01/30/2025 3:[address] [place] [phone] Arturo Cordero MD [facility] HEMATOLOGY [place] [address] 01/30/2025 4:15 PM EDT Office Visit Hematology [place] [phone] Arturo Cordero MD [facility] DR HEMATOLOGY [place] [address] Scheduled Procedures Name Priority Associated Diagnoses Date/Ti me EGD, UPPER GI ENDOSCOPY (WRVU 2.09) Irritable bowel syndrome with constipation 08/29/2024 1:00 PM EST COLONOSCOPY, DIAGNOSTIC (WRVU 3.26) Irritable bowel syndrome with constipation 08/29/2024 1:00 PM EST documented as of this encounter Visit Diagnoses Not on filedocumented in this encounter Care Teams Licensed Practical Nurse Relationship Specialty Start Date End Date Daryn Garrett MD [facility] [address] [place] [address] PCP - General 04/10/24 documented as of this encounter
--- OUTSIDE RECORDS SUMMARY | 2024-08-20 15:57 | XMS_ITS | Encounter Summary ---
Author Organization [facility] Address [facility] [place] [address] Care Team Providers Care Smooth Plater Name Role Phone Daryn Garrett MD Primary Care Provider Reason for Visit * Reason Onset Date Comments Medication Refill 10/02/2021 Encounter Details Date Type Department Care Team (Late st Contact Info) Description 10/02/2021 Refill Family Medicine at [facility] [address] [place] [address] Luis E Narayan MD [facility] DR LILI [place] [address] Social History Tobacco Use Types Packs/Day Years [...] 1:00 PM EST Hospital Encounter [place] [phone] Roland Gooden MD [facility] [place] [address] 08/29/2024 1:00 PM EST - 08/29/2024 2:00 PM EST Surgery [place] [phone] Roland Gooden MD [facility] [place] [address] EGD, UPPER GI ENDOSCOPY (WRVU 2.09) 10/02/2024 1:00 PM EDT Office Visit [place] [phone] Juanpablo Hernandez MD [facility] [place] [address] 10/21/2024 9:30 AM EDT Office Visit Internal Medicine at [place] [address] [place] [address] Daryn Garrett MD [facility] [place] [address] 01/30/2025 1:30 PM EDT Laboratory Appointment Lab at [facility] Hematology Oncology [address] [place] [phone] 01/30/2025 3:[address] [place] [phone] Arturo Cordero MD [facility] [place] [address] 01/30/2025 4:15 PM EDT Office Visit Hematology [place] [phone] Arturo Cordero MD [facility] [place] [address] Scheduled Procedures Name Priority Associated Diagnoses Date/Ti me EGD, UPPER GI ENDOSCOPY (WRVU 2.09) Irritable bowel syndrome with constipation 08/29/2024 1:00 PM EST COLONOSCOPY, DIAGNOSTIC (WRVU 3.26) Irritable bowel syndrome with constipation 08/29/2024 1:00 PM EST documented as of this encounter Visit Diagnoses Not on filedocumented in this encounter Care Teams Smooth Plater Relationship Specialty Start Date End Date Daryn Garrett MD [facility] [place] [address] PCP - General 04/10/24 documented as of this encounter
--- OUTSIDE RECORDS SUMMARY | 2024-08-20 15:57 | XMS_ITS | Encounter Summary ---
Author Organization [facility] [place] [address] Care Team Providers Care Business Systems Developer Name Role Phone Luis E Narayan MD Primary Care Provider Encounter Details Date Type Department Care Team (Late st Contact Info) Description 08/19/2021 Telephone Family Medicine at [address] [place] [phone] Thomas Tyson, RN Social History Tobacco Use [...] [] Established patient [] Will be in [place] or [place] at time of visit [] Has access to Internet smart phone or computer with camera [] Would need phone visit HTI Screen: MUST be TH [] cough or fever AND Travelled internationally in past month to [facility] or [place] [] COVID-19 symptoms and unvaccinated [...] 1:00 PM EST Hospital En[place] [address] Roland Gooden MD [facility] [place] [address] 08/29/2024 1:00 PM EST - 08/29/2024 2:00 PM EST Surgery Gastroenterology at [place] [phone] Roland Gooden MD [facility] [place] [address] EGD, UPPER GI ENDOSCOPY (WRVU 2.09) 10/02/2024 1:00 PM EDT Office Visit Ophthalmology at [place] [phone] Juanpablo Hernandez MD [facility] [place] [address] 10/21/2024 9:30 AM EDT Office Visit Internal Medicine at [address] [phone] Daryn Garrett MD [facility] DR [place] [address] 01/30/2025 1:30 PM EDT Laboratory Appointment Lab at [facility] [place] Oncology [address] [place], [place] [phone] 01/30/2025 3:[address] Scan at [place] [phone] Arturo Cordero MD [facility] [place] [address] 01/30/2025 4:15 PM EDT Office Visit Hematology and Oncology at [place] [phone] Arturo Cordero MD [facility] [place] [address] Scheduled Procedures Name Priority Associated Diagnoses Date/Ti me EGD, UPPER GI ENDOSCOPY (WRVU 2.09) Irritable bowel syndrome with constipation 08/29/2024 1:00 PM EST COLONOSCOPY, DIAGNOSTIC (WRVU 3.26) Irritable bowel syndrome with constipation 08/29/2024 1:00 PM EST documented as of this encounter Visit Diagnoses Not on filedocumented in this encounter Care Teams Business Systems Developer Relationship Specialty Start Date End Date Luis E Narayan MD [facility] [address] [place] [address] PCP - General Family Medicine 03/26/19 01/19/22 documented as of this encounter
--- OUTSIDE RECORDS SUMMARY | 2024-08-20 15:57 | XMS_ITS | Encounter Summary ---
Author Organization [facility] [place] [address] Care Team Providers Care Rn Military Name Role Phone Luis E Narayan MD Primary Care Provider [phone] Reason for Visit * Reason Comments Melanoma Encounter Details Date Type Department Care Team (Late st Contact Info) Description 07/27/2021 8:45 AM EST Office Visit [place] [address] Juanpablo Hernandez MD [facility] DR [place] [address] Malignant melanoma of conjunctiva, left s/p excision [...] 1:00 PM EST Hospital Encounter [place] [address] Roland Gooden MD [facility] [place] [address] 08/29/2024 1:00 PM EST - 08/29/2024 2:00 PM EST Surgery [place] [phone] Roland Gooden MD [facility] [place] [address] EGD, UPPER GI ENDOSCOPY (WRVU 2.09) 10/02/2024 1:00 PM EDT Office Visit Ophthalmology at [place] [phone] Juanpablo Hernandez MD [facility] [place] [address] 10/21/2024 9:30 AM EDT Office Visit Internal Medicine at [address] [place] [address] Daryn Garrett MD [facility] DR LILI WALKER - [place] [address] 01/30/2025 1:30 PM EDT Laboratory Appointment Lab at [facility] Hematology Oncology [address] [place] [phone] 01/30/2025 3:[address] Scan at [place] [phone] Arturo Cordero MD [facility] HEMATOLOGY [place] [address] 01/30/2025 4:15 PM EDT Office Visit Hematology [place] [phone] Arturo Cordero MD [facility] HEMATOLOGY [place] [address] Scheduled Procedures Name Priority Associated Diagnoses Date/Ti [...] excision 05/14/20 Malignant melanoma of conjunctiva, left Irritable bowel syndrome with constipation Irritable bowel syndrome documented in this encounter Care Teams Rn Military Relationship Specialty Start Date End Date Luis E Narayan MD [facility] DR LILI WALKER-[place] [address] PCP - General Family Medicine 03/26/19 01/19/22 documented as of this encounter
--- OUTSIDE RECORDS SUMMARY | 2024-08-20 15:58 | XMS_ITS | Encounter Summary ---
Author Organization [facility] [place] [address] Care Team Providers Care Assistant Production Editor Name Role Phone Daryn Garrett MD Primary Care Provider [phone] Reason for Visit * Reason Onset Date Comments Medication Refill 07/02/2021 Encounter Details Date Type Department Care Team (Late st Contact Info) Description 07/02/2021 Refill Family Medicine at [facility] [address] [place] [address] Bonny Emanuel MD [address] [place] [address] Social History Tobacco Use Types Packs/Day Years [...] 1:00 PM EST Hospital Encounter [place] [phone] Roland Gooden MD [facility] [place] [address] 08/29/2024 1:00 PM EST - 08/29/2024 2:00 PM EST Surgery [place] [phone] Roland Gooden MD [facility] [place] [address] EGD, UPPER GI ENDOSCOPY (WRVU 2.09) 10/02/2024 1:00 PM EDT Office [place] [phone] Juanpablo Hernandez MD [facility] [place] [address] 10/21/2024 9:30 AM EDT Office Visit Internal Medicine at [facility] [address] [place] [address] Daryn Garrett MD [facility] [place] [address] 01/30/2025 1:30 PM EDT Laboratory Appointment Lab at [facility] Hematology Oncology [address] [place] [phone] 01/30/2025 3:[address] [place] [phone] Arturo Cordero MD [facility] HEMATOLOGY [place] [address] 01/30/2025 4:15 PM EDT Office Visit Hematology [place] [phone] Arturo Cordero MD [facility] HEMATOLOGY [place] [address] Scheduled Procedures Name Priority Associated Diagnoses Date/Ti me EGD, UPPER GI ENDOSCOPY (WRVU 2.09) Irritable bowel syndrome with constipation 08/29/2024 1:00 PM EST COLONOSCOPY, DIAGNOSTIC (WRVU 3.26) Irritable bowel syndrome with constipation 08/29/2024 1:00 PM EST documented as of this encounter Visit Diagnoses Not on filedocumented in this encounter Care Teams Assistant Production Editor Relationship Specialty Start Date End Date Daryn Garrett MD [facility] [place] [address] PCP - General 04/10/24 documented as of this encounter
--- OUTSIDE RECORDS SUMMARY | 2024-08-20 15:58 | XMS_ITS | Encounter Summary ---
Author Organization [facility] [place] [address] Care Team Providers Care Loom Setter Name Role Phone Luis E Narayan MD Primary Care Provider Reason for Referral * Diagnostic Test (Routine) - Closed Specialty Diagnoses / Procedures Referred By Contac t Referred To Contact Radiology Diagnoses Malignant melanoma of conjunctiva, left Malignant melanoma, unspecified site Procedures CT Neck Soft Tissue w Contrast (Generic) Leandra Black APRN [facility] [address] [place] [address] [facility] [place] [address] Referral ID Status Reason Start Date Expiration Date V isits Requested Visits Authorized [id number] Closed Specialty Service Requested 12/23/2021 07/09/2022 1 1 * Diagnostic Test (Routine) - Closed Specialty Diagnoses / Procedures Referred By Contac t Referred To Contact Radiology Diagnoses Malignant melanoma of conjunctiva, left Malignant melanoma, unspecified site Procedures CT Chest Abdomen Pelvis w Contrast (Generic) Leandra Black APRN [facility] DR [place] [address] [facility] [place] [address] Referral ID Status Reason Start Date Expiration Date V isits Requested Visits Authorized [id number] Closed Specialty Service Requested 12/23/2021 07/09/2022 1 1 Reason for Visit * Reason Comments Follow-up Encounter Details Date Type Department Care Team (Late st Contact Info) Description 06/24/2021 3:15 PM EST Office Visit Hematology [place] [address] Arturo Cordero MD [facility] [place] [address] Dottie Jim MD Rose, Katherine J, APRN [facility] [place] [address] Malignant melanoma of conjunctiva, left; Malignant melanoma, [...] this encounter Progress Notes * Leandra Black, PRESIDENT PRACTICING UROLOGIST - 06/24/2021 3:15 PM EST Images from the original note were not included. [facility] CLINIC FOLLOW UP NOTE REFERING PHYSICIAN: [...] management - fall 2018: saw a new batting machine operator insulation and was referred to Dr. 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 Medina - 03/31/2020: saw her batting machine operator insulation Dr. Hernandez and was noted to have [...] is having regular follow ups with her sales support associate. She continues to smoke, but hopes to [...] uses inhalerswith good effect ??? Atherosclerosis of [place] coronary artery of [place] heart with angina pectoris 10/09/2007 History of [...] MD at [facility] ??? PRO EXCIS CORNEA LESN Left 05/14/2020 EXCISION OF LESION, CORNEA, EXCEPT PTERYGIUM (WRVU 7.5) performed by Juanpablo Hernandez MD at [facility] ??? PRO LAP, PARTIAL NEPHRECTOMY Left 06/28/2019 LAPAROSCOPY, PARTIAL NEPHRECTOMY, ROBOTIC ASSIST (WRVU 27.41) performed by Avila Medina MD at [facility] MAIN OR ??? 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 o Sun Exposure: Use broad spectrum, 30 SPF or higher, water resistant sunscreen with reapplication every 2 hours OR SPF clothing and limit your amount of direct sun exposure when possible. o Regular skin and lymph node self-examination should be performed. Please report any new lesions, lumps or bumps of concern to your sales support associate or oncology team. ? You should be [...] new symptoms or concerns. Leandra Black DNP, PRESIDENT PRACTICING UROLOGIST Return in 3 mos for stand alone US RTC in 6 mos with labs, clinic appointment and CT scan documented in this encounter Plan of Treatment Upcoming Encounters Date Type Department Care Team (Latest Contact Info) Description 08/29/2024 1:00 PM EST Hospital En[place] [phone] Roland Gooden MD [facility] [place] [address] 08/29/2024 1:00 PM EST - 08/29/2024 2:00 PM EST [place] [phone] Roland Gooden MD [facility] [place] [address] EGD, UPPER GI ENDOSCOPY (WRVU 2.09) 10/02/2024 1:00 PM EDT Office [place] [phone] Juanpablo Hernandez MD [facility] [place] [address] 10/21/2024 9:30 AM EDT Office Visit Internal Medicine at [address] [phone] Daryn Garrett MD [facility] DR LIL[place] [address] 01/30/2025 1:30 PM EDT Laboratory Appointment Lab at [facility] [place]ology Oncology [address] [place] [phone] 01/30/2025 3:[address] [place] [address] Arturo Cordero MD [facility] HEMATOLOGY AND [place]COLOGY [place], [place] [phone] 01/30/2025 4:15 PM EDT Office Visit Hematology [place] [phone] Arturo Cordero MD [facility] HEMATOLOGY AND ONCOLOGY [place], [place] [phone] Scheduled Procedures Name Priority Associated Diagnoses Date/Ti [...] have questions please contact the health career center advisor that requested your imaging first. ? Electronically signed by: Davin Corbett MD, [facility] ([phone]), at 12/24/2021 8:15 AM Narrative 12/24/2021 8:15 [...] who have questions please contactthe health career center advisor that requested your imaging first. Electronically signed by: Davin Corbett MD, [facility]([phone]), at 12/24/2021 8:15 AM Leandra J Marianne [facility] CT ORDERABLES * CT Chest Abdomen [...] have questions please contact the health career center advisor that requested your imaging first. ? Electronically signed by: Milo Kaye MD, [facility] ([phone]), at 12/23/2021 3:09 PM Narrative 12/23/2021 3:09 [...] who have questions please contactthe health career center advisor that requested your imaging first. Electronically signed by: Milo Kaye MD, [facility]([phone]), at 12/23/2021 3:09 PM Leandra Black APRN IMG CT ORDERABLES * US Soft Tissue Head Or Neck (11/17/2021 11:45 AM EDT) Anatomical Region Laterality Modality Ultrasound 11/17/2021 11:4 2 AM EDT Impressions 11/17/2021 12:00 PM EDT Morphologically normal-appearing lymph nodes in the left neck. No suspicious sonographic findings. Electronically signed by: Nakia Goetz MD, [facility] ([phone]), at 11/17/2021 11:51 AM Thank you for letting us participate in the care of this patient. If you are a health care provider and have any questions regarding this report, please contact the number above. For patients who have questions, please contact the health career center advisor that requested your imaging first. ? Nakia Goetz, Staff Physician Electronically Signed Final Report ?? 11/17/2021 11:59 am Narrative 11/17/2021 12:00 PM EDT Ultrasound Soft Tissue ?(Signed Final 11/17/2021 11:59 am) Neck Left PATIENT INFO: ID #: ? [id number] ?: ??58 (61 yrs)(F) Name: ? PATIENCE Chelsea MANJARREZ ? Visit Date: 11/17/2021 11:42 am PERFORMED BY: Performed By: ? Diana Lowe RDMS Attending: ?Soyf COLVIN, Nakia Andrade Referred By: ?LEANDRA BLACK Location: ? [place] SERVICE(S) PROVIDED: USTN - Soft Tissue Neck or Head - [id number] ? [id number] INDICATIONS: History of left eye conjunctival melanoma [...] am) Neck Left PATIENT INFO: ID #: [id number] : 58 (61 yrs)(F) Name: PATIENCE MANJARREZ Visit Date: 11/17/2021 11:42 am PERFORMED BY: Performed By: Diana Lowe RDMS Attending: Nakia Goetz MD Referred By: LEANDRA BLACK Location: [place] SERVICE(S) PROVIDED: USTN - Soft Tissue Neck or Head - [id number] INDICATIONS: History of left eye conjunctival melanoma [...] have questions, please contact the health career center advisor that requested your imaging first. Nakia Goetz, [...] syndrome documented in this encounter Care Teams Loom Setter Relationship Specialty Start Date End Date Luis E Narayan MD [facility] DR LILI [place] [address] PCP - General Family Medicine 03/26/19 01/19/22 documented as of this encounter
--- OUTSIDE RECORDS SUMMARY | 2024-08-20 15:58 | XMS_ITS | Encounter Summary ---
Author Organization [facility] Address [facility] [place] [address] Care Team Providers Care Communications Executive Name Role Phone Luis E Narayan MD Primary Care Provider [phone]- [phone] Reason for Visit * Reason Onset Date Comments Medication Refill 06/19/2021 Encounter Details Date Type Department Care Team (Late st Contact Info) Description 06/19/2021 Refill Family Medicine at [facility] [address] [place] [address] Luis E Narayan MD [facility] DR L[place] [address] Mixed hyperlipidemia Social History Tobacco Use Types [...] 1:00 PM EST Hospital Encounter [place] [phone] Roland Gooden MD [facility] [place] [address] 08/29/2024 1:00 PM EST - 08/29/2024 2:00 PM EST [place] [phone] Roland Gooden MD [facility] [place] [address] EGD, UPPER GI ENDOSCOPY (WRVU 2.09) 10/02/2024 1:00 PM EDT Office [place] [phone] Juanpablo Hernandez MD [facility] [place] [address] 10/21/2024 9:30 AM EDT Office Visit Internal Medicine at [facility] [place] [address] Daryn Garrett MD [facility] DR [place] [address] 01/30/2025 1:30 PM EDT Laboratory Appointment Lab at [facility] Hematology Oncology [address] [place] [phone] 01/30/2025 3:[address] [place] [phone] Arturo Cordero MD [facility] [place] [address] 01/30/2025 4:15 PM EDT Office Visit Hematology [place] [phone] Arturo Cordero MD [facility] [place] [address] Scheduled Procedures Name Priority Associated Diagnoses Date/Ti va EGD, UPPER GI ENDOSCOPY (WRVU 2.09) Irritable bowel syndrome with constipation 08/29/2024 1:00 PM EST COLONOSCOPY, DIAGNOSTIC (WRVU 3.26) Irritable bowel syndrome with constipation 08/29/2024 1:00 PM EST documented as of this encounter Visit Diagnoses Diagnosis Mixed hyperlipidemia Irritable bowel syndrome with constipation Irritable bowel syndrome documented in this encounter Care Teams Communications Executive Relationship Specialty Start Date End Date Luis E Narayan MD [facility] [address] [address] PCP - General Family Medicine 03/26/19 01/19/22 documented as of this encounter
--- OUTSIDE RECORDS SUMMARY | 2024-08-20 15:58 | XMS_ITS | Encounter Summary ---
Author Organization [facility] [place] [address] Care Team Providers Care Superintendent Plant Name Role Phone Luis E Narayan MD Primary Care Provider [phone]- [phone] Encounter Details Date Type Department Care Team (Late st Contact Info) Description 03/19/2021 10:52 AM EDT - 03/19/2021 11:59 PM EDT Hospital [place] [address] Leandra Black, CLIENT SUPPORT COORDINATOR [facility] DR HEMATOLOGY [place] [address] Malignant melanoma of conjunctiva, left Discharge Disposition: [...] tablet 1 01/08/2021 08/02/2021 FreeStyle Sanjana 2 [place] MiscIndications:diabete s mellitus 1 each by Other [...] 09/15/2020 09/19/2023 fluticasone propionate (FLONASE) 50 mcg/actuation [place], Suspension 1 spray by Each Nare route [...] EST Hospital Encounter Gastroenterology at [place] [phone] Roland Gooden MD [facility] [place] [address] 08/29/2024 1:00 PM EST - 08/29/2024 2:00 PM EST Surgery Gastroenterology at [place] [phone] Roland Gooden MD [facility] [place] [address] EGD, UPPER GI ENDOSCOPY (WRVU 2.09) 10/02/2024 1:00 PM EDT Office Visit Ophthalmology at [place] [phone] Juanpablo Hernandez MD [facility] [place] [address] 10/21/2024 9:30 AM EDT Office Visit Internal Medicine at [address] [phone] Daryn Garrett MD [facility] DR LILI W[place]ER - [place] [address] 01/30/2025 1:30 PM EDT Laboratory Appointment Lab at [facility] Hematology Oncology [address] [place] [phone] 01/30/2025 3:[address] [place] [phone] Arturo Cordero MD [facility] HEMATOLOGY [place] [address] 01/30/2025 4:15 PM EDT Office Visit Hematology and Oncology at [place] [phone] Arturo Cordero MD [facility] DR HEMATOLOGY [place] [address] Scheduled Procedures Name Priority Associated Diagnoses Date/Ti [...] have questions, please contact the health manager long term care that requested your imaging first. ?Faina Hernadez, Staff Physician Electronically Signed Final Report ?? 03/19/2021 12:13 pm Narrative 03/19/2021 12:13 PM EDT Ultrasound Soft Tissue ?(Signed Final 03/19/2021 12:13 pm) Neck or Head Report PATIENT INFO: ID #: ? [id number] ?: ??58 (60 yrs)(F) Name: ? PATIENCE MANJARREZ ? Visit Date: 03/19/2021 10:54 am PERFORMED BY: Performed By: ? Tonia Lopes RDMS Attending: ?Faina Stahl MD. Referred By: ?LEANDRA BLACK Location: ? [place] SERVICE(S) PROVIDED: USTN - Soft Tissue Neck or Head - [id number] ? [id number] INDICATIONS: History of left eye conjunctival melanoma [...] or Head Report PATIENT INFO: ID #: [id number] : 58 (60 yrs)(F) Name: PATIENCE MANJARREZ Visit Date: 03/19/2021 10:54 am PERFORMED BY: Performed By: Tonia Lopes RDMS Attending: Faina Stahl MD Referred By: LEANDRA BLACK Location: [place] SERVICE(S) PROVIDED: USTN - Soft Tissue Neck or Head - [id number] INDICATIONS: History of left eye conjunctival melanoma [...] have questions, please contact the health manager long term care that requested your imaging first. Faina Hernadez, Staff Physician Electronically Signed Final Report 03/19/2021 12:13 pm Leandra Black CLIENT SUPPORT COORDINATOR IMG US GEN ORDERAB LES documented in this encounter Visit Diagnoses Diagnosis Malignant melanoma of conjunctiva, left Irritable bowel syndrome with constipation Irritable bowel syndrome documented in this encounter Care Teams Superintendent Plant Relationship Specialty Start Date End Date Luis E Narayan MD [facility] [place] [address] PCP - General Family Medicine 03/26/19 01/19/22 documented as of this encounter
--- OUTSIDE RECORDS SUMMARY | 2024-08-20 15:58 | XMS_ITS | Encounter Summary ---
Author Organization [facility] [place] [address] Care Team Providers Care Automation Control Integrator Name Role Phone Luis E Narayan MD Primary Care Provider +1- [phone] Encounter Details Date Type Department Care Team (Latest Contact Info) Description 06/08/2021 10:16 AM EST - 06/08/2021 11:59 PM [facility] Hospital En[place] [address] Janessa Khan, ROTATING FIELD ASSEMBLER [facility] DR LILI [place] [address] Right upper quadrant pain Discharge Disposition: Home [...] tablet 1 01/08/2021 08/02/2021 FreeStyle Sanjana 2 [place] MiscIndications:diabe escobar mellitus 1 each by Other [...] 09/15/2020 09/19/2023 fluticasone propionate (FLONASE) 50 mcg/actuation [place], Suspension 1 spray by Each Nare route [...] 1:00 PM EST Hospital Encounter [place] [phone] Roland Gooden MD [facility] [place] [address] 08/29/2024 1:00 PM EST - 08/29/2024 2:00 PM EST Surgery [place] [phone] Roland Gooden MD [facility] [place] [address] EGD, UPPER GI ENDOSCOPY (WRVU 2.09) 10/02/2024 1:00 PM EDT Office [place] [phone] Juanpablo Hernandez MD [facility] [place] [address] 10/21/2024 9:30 AM EDT Office Visit Internal Medicine at [address] [phone] Daryn Garrett MD [facility] DR LILI [place] [address] 01/30/2025 1:30 PM EDT Laboratory Appointment Lab at [facility] Hematology Oncology [address] [place] [phone] 01/30/2025 3:[address] [place] [address] Arturo Cordero MD [facility] DR [place] [address] 01/30/2025 4:15 PM EDT Office Visit Hematology [place] [address] Arturo Cordero MD [facility] DR [place] [address] Scheduled Procedures Name Priority Associated Diagnoses Date/Ti [...] who have questions, please contact the health livestock caretaker that requested your imaging first. ? Nakia Goetz, Staff Physician Electronically Signed Final Report ?? 06/08/2021 12:08 pm Narrative 06/08/2021 12:09 PM EST Abdominal ? (Signed Final 06/08/2021 12:08 pm) PATIENT INFO: ID #: ? [id number] ?: ??58 (60 yrs)(F) Name: ? PATIENCE MANJARREZ ? Visit Date: 06/08/2021 11:00 am PERFORMED BY: Performed By: ? Vaughn Marcial RDMS Attending: ?Sofy COLVIN, Nakia Andrade Referred By: ?JANESSA KHAN Location: ? [place] SERVICE(S) PROVIDED: UABDLIM - Abdominal Limited Survey Single ? [id number] Organ or Quadrant - [id number] INDICATIONS: RUQ pain, postprandial with fats COMPARISON: [...] 06/08/2021 12:08 pm) PATIENT INFO: ID #: [id number] : 58 (60 yrs)(F) Name: PATIENCE MANJARREZ Visit Date: 06/08/2021 11:00 am PERFORMED BY: Performed By: Vaughn Marcial RDMS Attending: Nakia Goetz MD Referred By: JANESSA KHAN Location: [place] SERVICE(S) PROVIDED: UABDLIM - Abdominal Limited Survey Single 84354 Organ or Quadrant - [id number] INDICATIONS: RUQ pain, postprandial with fats COMPARISON: [...] who have questions, please contact the health livestock caretaker that requested your imaging first. Nakia Goetz, Staff Physician Electronically Signed Final Report 06/08/2021 12:08 pm Janessa Khan APRN IMG US GEN ORDERABLE S documented in this encounter Visit Diagnoses Diagnosis Right upper quadrant pain Abdominal pain, right upper quadrant Irritable bowel syndrome with constipation Irritable bowel syndrome documented in this encounter Care Teams Automation Control Integrator Relationship Specialty Start Date End Date Luis E Narayan MD [facility] [place] [address] PCP - General Family Medicine 03/26/19 01/19/22 documented as of this encounter
--- OUTSIDE RECORDS SUMMARY | 2024-08-20 15:58 | XMS_ITS | Encounter Summary ---
Author Organization [facility] [place] [address] Care Team Providers Care Triage Registered Nurse Name Role Phone Luis E Narayan MD Primary Care Provider Encounter Details Date Type Department Care Team (Late st Contact Info) Description 06/16/2021 Telephone Family Medicine at [address] [place] [phone] Thania Flores, RN Social History Tobacco Use [...] check my message. The call backnumber is [phone]. * Telephone Encounter - Thania Flores RN [...] 1:00 PM EST Hospital Encounter [place] [phone] Roland Gooden MD [facility] [place] [address] 08/29/2024 1:00 PM EST - 08/29/2024 2:00 PM EST Surgery Gastroenterology at [place] [phone] Roland Gooden MD [facility] [place] [address] EGD, UPPER GI ENDOSCOPY (WRVU 2.09) 10/02/2024 1:00 PM EDT Office Visit Ophthalmology at [place] [phone] Juanpablo Hernandez MD [facility] [place] [address] 10/21/2024 9:30 AM EDT Office Visit Internal Medicine at [address] [phone] Daryn Garrett MD [facility] DR LILI [place] [address] 01/30/2025 1:30 PM EDT Laboratory Appointment Lab at [facility] [place] [address] [place] [phone] 01/30/2025 3:[address] [place] [address] Arturo Cordero MD [facility] [place] [address] 01/30/2025 4:15 PM EDT Office Visit Hematology [place] [address] Arturo Cordero MD [facility] [place] [address] Scheduled Procedures Name Priority Associated Diagnoses Date/Ti me EGD, UPPER GI ENDOSCOPY (WRVU 2.09) Irritable bowel syndrome with constipation 08/29/2024 1:00 PM EST COLONOSCOPY, DIAGNOSTIC (WRVU 3.26) Irritable bowel syndrome with constipation 08/29/2024 1:00 PM EST documented as of this encounter Visit Diagnoses Not on filedocumented in this encounter Care Teams Triage Registered Nurse Relationship Specialty Start Date End Date Luis E Narayan MD [facility] [address] [place] [address] PCP - General Family Medicine 03/26/19 01/19/22 documented as of this encounter
--- OUTSIDE RECORDS SUMMARY | 2024-08-20 15:58 | XMS_ITS | Encounter Summary ---
Author Organization [facility] Address [facility] [place] [address] Care Team Providers Care Railway Patrol Officer Name Role Phone Luis E Narayan MD Primary Care Provider [phone] Reason for Visit * Reason Onset Date Comments Medication Refill 05/05/2021 Encounter Details Date Type Department Care Team (Late st Contact Info) Description 05/05/2021 Refill Family Medicine at [facility] [address] [place] [address] Luis E Narayan MD [facility] DR LILI [place] [address] Essential hypertension Social History Tobacco Use Types [...] 1:00 PM EST Hospital Encounter [place] [address] Roland Gooden MD [facility] [place] [address] 08/29/2024 1:00 PM EST - 08/29/2024 2:00 PM EST Surgery [place] [address] Roland Gooden MD [facility] [place] [address] EGD, UPPER GI ENDOSCOPY (WRVU 2.09) 10/02/2024 1:00 PM EDT Office [place] [address] Juanpablo Hernandez MD [facility] [place] [address] 10/21/2024 9:30 AM EDT Office Visit Internal Medicine at [place] [address] [place] [address] Daryn Garrett MD [facility] DR LILI [place] [address] 01/30/2025 1:30 PM EDT Laboratory Appointment Lab at [facility] [place] [address] [place], [place] [phone] 01/30/2025 3:[address] Scan at [place] [phone] Arturo Cordero MD [facility] [place] [address] 01/30/2025 4:15 PM EDT Office Visit Hematology [place] [phone] Arturo Cordero MD [facility] [place] [address] Scheduled Procedures Name Priority Associated Diagnoses Date/Ti me EGD, UPPER GI ENDOSCOPY (WRVU 2.09) Irritable bowel syndrome with constipation 08/29/2024 1:00 PM EST COLONOSCOPY, DIAGNOSTIC (WRVU 3.26) Irritable bowel syndrome with constipation 08/29/2024 1:00 PM EST documented as of this encounter Visit Diagnoses Diagnosis Essential hypertension Unspecified essential hypertension Irritable bowel syndrome with constipation Irritable bowel syndrome documented in this encounter Care Teams Railway Patrol Officer Relationship Specialty Start Date End Date Luis E Narayan MD [facility] DR LILI [place] [address] PCP - General Family Medicine 03/26/19 01/19/22 documented as of this encounter
--- OUTSIDE RECORDS SUMMARY | 2024-08-20 15:58 | XMS_ITS | Encounter Summary ---
Author Organization [facility] [place] [address] Care Team Providers Care Certified Surgical First Assistant Name Role Phone Luis E Narayan MD Primary Care Provider [phone] Encounter Details Date Type Department Care Team (Late st Contact Info) Description 06/22/2021 Telephone Internal Medicine at [facility] [address] [place] [phone] Shea Rodas Social History Tobacco Use Types [...] 1:00 PM EST Hospital Encounter [place] [address] Roland Gooden MD [facility] [place] [address] 08/29/2024 1:00 PM EST - 08/29/2024 2:00 PM EST [place] [phone] Roland Gooden MD [facility] [place] [address] EGD, UPPER GI ENDOSCOPY (WRVU 2.09) 10/02/2024 1:00 PM EDT Office [place] [phone] Juanpablo Hernandez MD [facility] [place] [address] 10/21/2024 9:30 AM EDT Office Visit Internal Medicine at [address] [phone] Daryn Garrett MD [facility] DR [place] [address] 01/30/2025 1:30 PM EDT Laboratory Appointment Lab at [facility] Hematology Oncology [address] [place] [phone] 01/30/2025 3:[address] [place] [address] Arturo Cordero MD [facility] [place] [address] 01/30/2025 4:15 PM EDT Office Visit Hematology [place] [address] Arturo Cordero MD [facility] [place] [address] Scheduled Procedures Name Priority Associated Diagnoses Date/Ti me EGD, UPPER GI ENDOSCOPY (WRVU 2.09) Irritable bowel syndrome with constipation 08/29/2024 1:00 PM EST COLONOSCOPY, DIAGNOSTIC (WRVU 3.26) Irritable bowel syndrome with constipation 08/29/2024 1:00 PM EST documented as of this encounter Visit Diagnoses Not on filedocumented in this encounter Care Teams Certified Surgical First Assistant Relationship Specialty Start Date End Date Luis E Narayan MD [facility] [place] [address] [place] [address] PCP - General Family Medicine 03/26/19 01/19/22 documented as of this encounter
--- OUTSIDE RECORDS SUMMARY | 2024-08-20 15:58 | XMS_ITS | Encounter Summary ---
Author Organization [facility] Address [facility] [place] [address] Care Team Providers Care Relay Associate Name Role Phone Luis E Narayan MD Primary Care Provider [phone] Encounter Details Date Type Department Care Team (Late st Contact Info) Description 05/07/2021 Refill Family Medicine at [facility] [address] [place] [address] Luis E Narayan MD [facility] DR LIL[address] [place] [address] Social History Tobacco Use Types Packs/Day Years [...] 1:00 PM EST Hospital En[place] [address] Roland Gooden MD [facility] [address] 08/29/2024 1:00 PM EST - 08/29/2024 2:00 PM EST Surgery Gastroenterology at [place] [phone] Roland Gooden MD [facility] [place] [address] EGD, UPPER GI ENDOSCOPY (WRVU 2.09) 10/02/2024 1:00 PM EDT Office Visit Ophthalmology at [place] [phone] Juanpablo Hernandez MD [facility] [place] [address] 10/21/2024 9:30 AM EDT Office Visit Internal Medicine at [address] [phone] Daryn Garrett MD [facility] DR [place] [address] 01/30/2025 1:30 PM EDT Laboratory Appointment Lab at [facility] Hematology Oncology [address] [place], [place] [phone] 01/30/2025 3:[address] Scan at [place] [phone] Arturo Cordero MD [facility] [place] [address] 01/30/2025 4:15 PM EDT Office Visit Hematology [place] [address] Arturo Cordero MD [facility] [place] [address] Scheduled Procedures Name Priority Associated Diagnoses Date/Ti me EGD, UPPER GI ENDOSCOPY (WRVU 2.09) Irritable bowel syndrome with constipation 08/29/2024 1:00 PM EST COLONOSCOPY, DIAGNOSTIC (WRVU 3.26) Irritable bowel syndrome with constipation 08/29/2024 1:00 PM EST documented as of this encounter Visit Diagnoses Not on filedocumented in this encounter Care Teams Relay Associate Relationship Specialty Start Date End Date Luis E Narayan MD [facility] DR LILI [place] [address] PCP - General Family Medicine 03/26/19 01/19/22 documented as of this encounter
--- OUTSIDE RECORDS SUMMARY | 2024-08-20 15:58 | XMS_ITS | Encounter Summary ---
Author Organization [facility] [place] [address] Care Team Providers Care Supervisor Filtration Name Role Phone Luis E Narayan MD Primary Care Provider [phone] Reason for Visit * Reason Onset Date Comments Prior Authorization 04/06/2021 Omeprazole Encounter Details Date Type Department Care Team (Late st Contact Info) Description 04/06/2021 Telephone Family Medicine at [facility] [address] [place] [phone] Arlene Palomo, [employer] Prior Authorization (Omeprazole) Social History Tobacco Use [...] in a nursing home (including now)? No 02/03/2021 Sex and Gender Information Value Date Recorded Sex Assigned at Not on file Gender Identity Not on file Sexual Orientation Not on file documented as of this encounter Miscellaneous Notes * Telephone Encounter - Christine Peterson CMA - 04/06/2021 9:15 AM EDT Medication Prior Authorization for Primary Care Approved: Omeprazole Start Date: 04/06/2021 End Date: 07/06/2021 Case/Reference #: [id number] See Approval Letter in scanned documents. Additional Notes: * Telephone Encounter - rAlene Palomo CMA - 04/06/2021 7:48 AM EDT Medication Prior Authorization for Primary [place] [address] Request received via: Message Patient: Alize Gramajo Patient : 1960 Insurance Company: [place] Medicaid Sent via: [employer] Anderson: [id number] Physician: Luis E Narayan MD ?? Medication [...] 1:00 PM EST Hospital Encounter [place] [address] Roland Gooden MD [facility] [address] 08/29/2024 1:00 PM EST - 08/29/2024 2:00 PM EST Surgery [place] [address] Roland Gooden MD [facility] [place] [address] EGD, UPPER GI ENDOSCOPY (WRVU 2.09) 10/02/2024 1:00 PM EDT Office [place] [address] Juanpablo Hernandez MD [facility] [place] [address] 10/21/2024 9:30 AM EDT Office Visit Internal Medicine at [address] [phone] Daryn Garrett MD [facility] DR LILI [place] [address] 01/30/2025 1:30 PM EDT Laboratory Appointment Lab at [facility] Hematology Oncology [address] [place] [phone] 01/30/2025 3:[address] [place] [phone] Arturo Cordero MD [facility] [place] [address] 01/30/2025 4:15 PM EDT Office Visit Hematology [place] [address] Arturo Cordero MD [facility] [address] [place] [address] Scheduled Procedures Name Priority Associated Diagnoses Date/Ti me EGD, UPPER GI ENDOSCOPY (WRVU 2.09) Irritable bowel syndrome with constipation 08/29/2024 1:00 PM EST COLONOSCOPY, DIAGNOSTIC (WRVU 3.26) Irritable bowel syndrome with constipation 08/29/2024 1:00 PM EST documented as of this encounter Visit Diagnoses Not on filedocumented in this encounter Care Teams Supervisor Filtration Relationship Specialty Start Date End Date Luis E Narayan MD [facility] [address] [place] [address] PCP - General Family Medicine 03/26/19 01/19/22 documented as of this encounter
--- OUTSIDE RECORDS SUMMARY | 2024-08-20 15:58 | XMS_ITS | Encounter Summary ---
[place] [address] Care Team Providers Care Traffic Checker Name Role Phone Luis E Narayan MD Primary Care Provider Reason for Referral * Consultation (Routine) - Closed Specialty Diagnoses / Procedures Referred By Gonzalez kumari Referred To Contact Gastroenterology Diagnoses Nonalcoholic hepatosteatosis fatty liver disease Janessa Davies APRN [facility] [place] [address] [facility] [place] [address] Referral ID Status Reason Start Date Expiration Date V isits Requested Visits Authorized [id number] Closed Assume Subset of Care 05/31/2021 05/31/2022 1 1 * Physical Therapy (Routine) - Closed Specialty Diagnoses / Procedures Referred By Contchrissy kumari Referred To Contact Physical Therapy Diagnoses Right leg pain Janessa Davies APRN [facility] [place] [address] Physical Therapy, [address] [address] Referral ID Status Reason Start Date Expiration Date V isits Requested Visits Authorized [id number] Closed Evaluate and Treat 05/31/2021 11/27/2021 10 10 Reason for Visit * Reason Comments Right Leg Pain Referral Gastro for GERD, Gas tritis and fatty liver diease Other blood work Immunizations influenza vaccine Encounter Details Date Type Department Care Team (Latest Contact Info) Description 05/31/2021 4:00 PM EST Office Visit Family Medicine at [facility] [address] [place] [address] Norman Ochoa Jr., MD [facility] [place] [address] Healthcare maintenance; Type 2 diabetes mellitus with [...] this encounter Progress Notes * Janessa Davies, [employer] HAND - 05/31/2021 4:00 PM EST Subjective: Patient ID: Patience Manjarrez is a 60 y.o. female. Presenting with abdominal pain and multiple requests. Chief Complaint Patient presents with ??? Right Leg Pain ??? Referral Gastro for GERD, Gastritis and fatty liver diease ??? Other blood work ??? Immunizations influenza vaccine Had colonoscopy, and EGD, in [facility] - Dr. Hart still having issues [...] lab work Voice-activated software commonly has unintentional dining room attendant errors, especially incorrect pronouns, verb tense, and typographical mistakes. 45 minutes: Chart review, [id number], coordination of care, and documentation. documented in this encounter Plan of Treatment Upcoming Encounters Date Type Department Care Team (Latest Contact Info) Description 08/29/2024 1:00 PM EST Hospital [place] [address] Roland Gooden MD [facility] [place] [address] 08/29/2024 1:00 PM EST - 08/29/2024 2:00 PM EST [place] [phone] Roland Gooden MD [facility] [place] [address] EGD, UPPER GI ENDOSCOPY (WRVU 2.09) 10/02/2024 1:00 PM EDT [place] [address] Juanpablo Hernandez MD [facility] [place] [address] 10/21/2024 9:30 AM EDT Office Visit Internal Medicine at [facility] [address] [place] [address] Daryn Garrett MD [facility] [place] [address] 01/30/2025 1:30 PM EDT Laboratory Appointment [place] [facility] [place] [address] [place] [phone] 01/30/2025 3:[address] [place] [place] [phone] Arturo Cordero MD [facility] [place] [address] 01/30/2025 4:15 PM EDT Office Visit [place] [phone] Arturo Cordero MD [facility] [place] [address] Scheduled Procedures Name Priority Associated Diagnoses Date/Ti [...] pancreas. Electronically signed by: Nakia Goetz MD, [facility] ([phone]), at 06/08/2021 12:00 PM Thank you for letting us participate in the care of this patient. If you are a health care provider and have any questions regarding this report, please contact the number above. For patients who have questions, please contact the health field care advocate that requested your imaging first. ? Nakia Goetz, Staff Physician Electronically Signed Final Report ?? 06/08/2021 12:08 pm Narrative 06/08/2021 12:09 PM EST Abdominal ? (Signed Final 06/08/2021 12:08 pm) PATIENT INFO: ID #: ? [id number] ?: ??[birth year] (60 yrs)(F) Name: ? PATIENCE MANJARREZ ? Visit Date: 06/08/2021 11:00 am PERFORMED BY: Performed By: ? Vaughn Marcial RDMS Attending: ?Sofy COLVIN, Nakia Andrade Referred By: ?JANESSA DAVIES Location: ? [facility] SERVICE(S) PROVIDED: UABDLIM - Abdominal Limited Survey Single ? 45708 Organ or Quadrant - [id number] INDICATIONS: RUQ pain, postprandial with fats COMPARISON: [...] 06/08/2021 12:08 pm) PATIENT INFO: ID #: [id number] : 58 (60 yrs)(F) Name: PATIENCE MANJARREZ Visit Date: 06/08/2021 11:00 am PERFORMED BY: Performed By: Vaughn Marcial RDMS Attending: Nakia Goetz MD Referred By: JANESSA DAVIES Location: [facility] SERVICE(S) PROVIDED: UABDLIM - Abdominal Limited Survey Single 08782 Organ or Quadrant - [id number] INDICATIONS: RUQ pain, postprandial with fats COMPARISON: [...] pancreas. Electronically signed by: Nakia Goetz MD, [facility] ([phone]), at 06/08/2021 12:00 PM Thank you for letting us participate in the care of this patient. If you are a health care provider and have any questions regarding this report, please contact the number above. For patients who have questions, please contact the health field care advocate that requested your imaging first. Nakia Goetz, Staff Physician Electronically Signed Final Report 06/08/2021 12:08 pm Janessa Sal Davies APRN [facility] US GEN ORDERABLE S * Differential, Automated (05/31/2021 5:57 PM EST) Neutrophil % 56.6 % [facility] Neutrophil Absolute 5.46 1.70 - 6.10 x10(3)/[facility] Lymph % 33.5 % [facility] Lymphocytes Abs 3.2 0.9 - 3.2 x10(3)/[facility] Monocyte % 7.9 % [facility] Monocyte Abs 0.8 0.3 - 0.9 x10(3)/[facility] Eos % 1.2 % [facility] Eosinophils Abs 0.1 0.0 - 0.4 x10(3)/[facility] LAB[facility] Basophil % 0.5 % [facility] Baso Absolute 0.0 0.0 - 0.1 x10(3)/[facility] LABORATORY Immature Gran % 0.30 % [facility] Comment: Immature granulocytes(IG's)percentage and absolute count will include metamyelocytes, myelocytes, and promyelocytes. Blood smears from CBCs yielding IG's will be scanned manually for concordance. If this scan disagrees with the automated IG or if promyelocytes are noted, a manual differential will be performed. Immature Gran Absolute 0.03 0.00 - 0.04 x10(3)/[facility] Blood 05/31/2021 5:57 PM EST 05/31/2021 6:05 PM EST Narrative Resulting Agency Comment Spec In Lab Janessa Davies APRN HEMATOLOGY ORDERABLE S [facility] [address] * (ABNORMAL) Hemogram (05/31/2021 5:57 PM EST) White Blood Cell 9.6(H) 4.0 - 9.5 x10(3)/ L [facility] Red Blood Cell 4.62 4.00 - 5.21 x10(6)/ L [facility] Hemoglobin 13.5 11.7 - 15.5 g/dL [facility] Hematocrit 40.2 35.7 - 45.8 % [facility] Mean Cell Volume 87.0 82.6 - 94.[address] [facility] Mean Cell Hemoglobin 29.2 27.1 - 32.[address] [facility] Mean Cell Hemoglobin Concentration 33.6 31.7 - 35.0 g/dL [facility] Platelet 404(H) 145 - 357 x10(3)/mc L [facility] RDW Standard Deviation 43.3 37.0 - 46.[address] [facility] RDW coefficient of variation 13.6 11.5 - 14.1 % [facility] Mean Platelet Volume 8.8 7.6 - 12.[address] [facility] NRBC% auto 0.0 % [facility] NRBC Absolute 0.000 0.000 - 0.000 x10(3)/mc L [facility] Blood 05/31/2021 5:57 PM EST 05/31/2021 6:05 PM EST Narrative Resulting Agency Comment Spec In Lab Janessa Davies APRN HEMATOLOGY ORDERABLE S Performing Organization Address [facility] Co de Phone Number [facility] [place] [address] * Lipase (05/31/2021 5:57 PM EST) Lipase 46 0 - 60 unit/L [facility] Blood 05/31/2021 5:57 PM EST 05/31/2021 6:05 PM EST Narrative Resulting Agency Comment Spec In Lab Janessa Davies APRN CHEMISTRY ORDERABLES Performing Organization Address [facility] Co md Phone Number [facility] [place] [address] * Comprehensive metabolic panel (non-fasting) (05/31/2021 5:57 PM EST) Glucose 154 65 - 199 mg/dL [facility] Comment:Diabetes: >=200 mg/d L plus symptoms Blood Urea Nitrogen 14 8 - 18 mg/dL [facility] [...] mg/dL [facility] Protein, Total 7.3 6.1 - 8.0 g/dL [facility] Albumin 4.3 3.2 - 5.2 g/dL [facility] Aspartate Aminotransferase 17 0 - 30 unit/L [facility] Alanine Aminotransferase 22 0 - 30 unit/L [facility] Alkaline Phosphatase 104 35 - 105 unit/L [facility] Bilirubin, Total 0.2 0.2 - 1.3 mg/dL [facility] Est Glomerular Filtration Rate 69 >=60 mL/min/1. 73 m?? [facility] Comment: This patient? s estimated [...] In Lab Janessa Davies APRN CHEMISTRY ORDERABLES [facility] [address] * (ABNORMAL) Hemoglobin A1c (05/31/2021 5:57 PM EST) Hemoglobin A1c 7.8(H) 4.3 - 5.6 % [facility] [...] Mellitus, Diabetes Care 2013; 36: Suppl. 1, S67-73 Estimated Average Glucose 178 mg/dL [facility] Comment: eAG [...] into estimated average glucose values. ??Diabetes Care 2008:31(8):9009-7378. Blood 05/31/2021 5:57 PM EST 05/31/2021 6:05 PM EST Narrative Resulting Agency Comment Spec In Lab Janessa Huang Bill [employer] [employer] CHEMISTRY ORDERABLES [facility] [place] [address] * EKG 12 Lead (05/31/2021 5:16 PM EST) Ventricular rate 68 BPM MUSE SYSTEM Atrial Rate 68 BPM MUSE SYSTEM P-R Interval 180 ms MUSE SYSTEM QRS Duration 92 ms MUSE SYSTEM Q-T Interval 390 ms MUSE SYSTEM QTC Calculated (Bezet) 414 ms MUSE SYSTEM Calculated P Pierson 33 degrees MUSE SYSTEM Calculated R Pierson 12 degrees MUSE SYSTEM Calculated T Pierson 41 degrees MUSE SYSTEM INTERPRETATION Normal sinus rhythm Nonspecific T wave abnormality Abnormal ECG When compared with ECG of 11-SEP-2020 14:20, No significant change was found Confirmed by MD Elsa, Zain Banda ([id number]) on 06/01/2021 9:16:58 AM MUSE SYSTEM 05/31/2021 5:16 PM EST 06/01/2021 9:16 AM EST Janessa Huang Bill [employer] ECG ORDERABLES Performing Organization Address City/[facility]/ZIP Co de Phone Number MUSE SYSTEM documented [...] syndrome documented in this encounter Care Teams Traffic Checker Relationship Specialty Start Date End Date Luis E Narayan MD [facility] [address] [place] [address] PCP - General Family Medicine 03/26/19 01/19/22 documented as of this encounter
--- OUTSIDE RECORDS SUMMARY | 2024-08-20 15:58 | XMS_ITS | Encounter Summary ---
Author Organization [facility] Address [facility] [place] [address] Care Team Providers Care Sales Trader Name Role Phone Luis E Narayan MD Primary Care Provider [phone]- [phone] Reason for Visit * Reason Onset Date Comments Medication Refill 06/04/2021 Encounter Details Date Type Department Care Team (Late st Contact Info) Description 06/04/2021 Refill Family Medicine at [facility] [address] [place] [address] Luis E Narayan MD [facility] DR [address] WALKER[place] [address] Essential hypertension Social History Tobacco Use Types [...] 1:00 PM EST Hospital En[place] [address] Roland Gooden MD [facility] [place] [address] 08/29/2024 1:00 PM EST - 08/29/2024 2:00 PM EST Surgery Gastroenterology at [place] [phone] Roland Gooden MD [facility] [place] [address] EGD, UPPER GI ENDOSCOPY (WRVU 2.09) 10/02/2024 1:00 PM EDT Office Visit Ophthalmology at [place] [phone] Juanpablo Hernandez MD [facility] [place] [address] 10/21/2024 9:30 AM EDT Office Visit Internal Medicine at [address] [phone] Daryn Garrett MD [facility] DR [address]IL[address] [place] [address] 01/30/2025 1:30 PM EDT Laboratory Appointment Lab at [facility] Hematology Oncology [address] [place], [place] [phone] 01/30/2025 3:[address] Scan at [place] [phone] Arturo Cordero MD [facility] HEMATOLOGY [place] [address] 01/30/2025 4:15 PM EDT Office Visit Hematology and Oncology at [place] [phone] Arturo Cordero MD [facility] HEMATOLOGY [place] [address] Scheduled Procedures Name Priority Associated Diagnoses Date/Ti me EGD, UPPER GI ENDOSCOPY (WRVU 2.09) Irritable bowel syndrome with constipation 08/29/2024 1:00 PM EST COLONOSCOPY, DIAGNOSTIC (WRVU 3.26) Irritable bowel syndrome with constipation 08/29/2024 1:00 PM EST documented as of this encounter Visit Diagnoses Diagnosis Essential hypertension Unspecified essential hypertension Irritable bowel syndrome with constipation Irritable bowel syndrome documented in this encounter Care Teams Sales Trader Relationship Specialty Start Date End Date Luis E Narayan MD [facility] [address] [facility] [address] PCP - General Family Medicine 03/26/19 01/19/22 documented as of this encounter
--- OUTSIDE RECORDS SUMMARY | 2024-08-20 15:58 | XMS_ITS | Encounter Summary ---
Author Organization [facility] Address [facility] [place] [address] Care Team Providers Care Filament Welder Name Role Phone Luis E Narayan MD Primary Care Provider [phone]- [phone] Reason for Visit * Reason Onset Date Comments Medication Refill 03/30/2021 Encounter Details Date Type Department Care Team (Late st Contact Info) Description 03/30/2021 Refill Family Medicine at [facility] [address] [place] [address] Luis E Narayan MD [facility] DR [address] [place] [address] Social History Tobacco Use Types Packs/Day Years [...] 1:00 PM EST Hospital En[place] [address] Roland Gooden MD [facility] [place] [address] 08/29/2024 1:00 PM EST - 08/29/2024 2:00 PM EST [place] [phone] Roland Gooden MD [facility] [place] [address] EGD, UPPER GI ENDOSCOPY (WRVU 2.09) 10/02/2024 1:00 PM EDT Office [place] [address] Juanpablo Hernandez MD [facility] [place] [address] 10/21/2024 9:30 AM EDT Office Visit Internal Medicine at [place] [address] [place] [address] Daryn Garrett MD [facility] [address] [place] [address] 01/30/2025 1:30 PM EDT Laboratory Appointment Lab at [facility] [place] Oncology [address] [place], [place] [phone] 01/30/2025 3:[address] Scan at [place] [phone] Arturo Cordero MD [facility] [place] [address] 01/30/2025 4:15 PM EDT Office Visit Hematology [place] [phone] Arturo Cordero MD [facility] [place] [address] Scheduled Procedures Name Priority Associated Diagnoses Date/Ti me EGD, UPPER GI ENDOSCOPY (WRVU 2.09) Irritable bowel syndrome with constipation 08/29/2024 1:00 PM EST COLONOSCOPY, DIAGNOSTIC (WRVU 3.26) Irritable bowel syndrome with constipation 08/29/2024 1:00 PM EST documented as of this encounter Visit Diagnoses Not on filedocumented in this encounter Care Teams Filament Welder Relationship Specialty Start Date End Date Luis E Narayan MD [facility] DR [address]IL[address] [place] [address] PCP - General Family Medicine 9/17/19 7/13/22 documented as of this encounter
--- OUTSIDE RECORDS SUMMARY | 2024-08-20 15:58 | XMS_ITS | Encounter Summary ---
Author Organization [facility] Address [facility] [place] [address] Care Team Providers Care Circular Knife Machine Cutter Name Role Phone Luis E Narayan MD Primary Care Provider [phone] Encounter Details Date Type Department Care Team (Late st Contact Info) Description 02/11/2021 Ancillary Procedure Radiology Library at [facility] [place] [address] Luis E Narayan MD [facility] [address]IL[address] [place] [address] Social History Tobacco Use Types Packs/Day Years [...] 1:00 PM EST Hospital Encounter Gastroenterology at [place] [phone] Roland Gooden MD [facility] [place] [address] 08/29/2024 1:00 PM EST - 08/29/2024 2:00 PM EST Surgery [place] [phone] Roland Gooden MD [facility] [place] [address] EGD, UPPER GI ENDOSCOPY (WRVU 2.09) 10/02/2024 1:00 PM EDT Office Visit Ophthalmology at [place] [phone] Juanpablo Hernandez MD [facility] [place] [place] [address] 10/21/2024 9:30 AM EDT Office Visit Internal Medicine at [facility] [address] [place] [address] Daryn Garrett MD [facility] [address] [place] [address] 01/30/2025 1:30 PM EDT Laboratory Appointment Lab [place] [facility] [place] On[place] [address] [place] [phone] 01/30/2025 3:[address] [place] [phone] Arturo Cordero MD [facility] [place] [address] 01/30/2025 4:15 PM EDT Office Visit Hematology [place] [phone] Arturo Cordero MD [facility] [place] [address] Scheduled Procedures Name Priority Associated Diagnoses Date/Ti [...] & Pelvis (02/11/2021 12:00 AM EDT) Narrative [facility] - 02/15/2021 11:35 AM EDT This exam is auto-finalizing. It's purpose is for storage only. Luis E Narayan MD IMG FILM LIBRARY OR DERABLES [place], [place] documented in this encounter Visit Diagnoses Not on filedocumented in this encounter Care Teams Circular Knife Machine Cutter Relationship Specialty Start Date End Date Luis E Narayan MD [facility] [address] [place] [address] PCP - General Family Medicine 03/26/19 01/19/22 documented as of this encounter
--- OUTSIDE RECORDS SUMMARY | 2024-08-20 15:58 | XMS_ITS | Encounter Summary ---
Author Organization [facility] [place] [address] Care Team Providers Care Elementary Reading Specialist Name Role Phone Luis E Narayan MD Primary Care Provider [phone] Encounter Details Date Type Department Care Team (Latest Contact Info) Description 06/24/2021 12:43 PM EST - 06/24/2021 11:59 PM EST Hospital Encounter [place]ematology [place] [address] Malignant melanoma of conjunctiva, left; History of [...] tablet 1 01/08/2021 08/02/2021 FreeStyle Sanjana 2 [place] MiscIndications:diabetes mellitus 1 each by Other route [...] 09/15/2020 09/19/2023 fluticasone propionate (FLONASE) 50 mcg/actuation [place], Suspension 1 spray by Each Nare route [...] 1:00 PM EST Hospital Encounter Gastroenterology at [place] [phone] Roland Gooden MD [facility] [place] [address] 08/29/2024 1:00 PM EST - 08/29/2024 2:00 PM EST Surgery Gastroenterology at [place] [phone] Roland Gooden MD [facility] [place] [address] EGD, UPPER GI ENDOSCOPY (WRVU 2.09) 10/02/2024 1:00 PM EDT Office Visit Ophthalmology at [place] [phone] Juanpablo Hernandez MD [facility] [address] 10/21/2024 9:30 AM EDT Office Visit Internal Medicine at [facility] [address] [place] [phone] Daryn Garrett MD [facility] DR [place] [address] 01/30/2025 1:30 PM EDT Laboratory Appointment Lab at [facility] Hematology Oncology [address] [place] [phone] 01/30/2025 3:[address] [place] [phone] Arturo Cordero MD [facility] [place] [address] 01/30/2025 4:15 PM EDT Office Visit Hematology [place] [address] Arturo Cordero MD [facility] [place] [address] Scheduled Procedures Name Priority Associated Diagnoses Date/Ti [...] LABORATORY Neutrophil Absolute 5.24 1.70 - 6.10 x10(3)/[facility] LABORATORY Lymph % 27.4 % [facility] Lymphocytes Abs 2.3 0.9 - 3.2 x10(3)/[facility] LABORATORY Monocyte % 8.0 % [facility] Monocyte Abs 0.7 0.3 - 0.9 x10(3)/[facility] LABORATORY Eos % 1.4 % [facility] Eosinophils Abs 0.1 0.0 - 0.4 x10(3)/[facility] LABORATORY Basophil % 0.8 % [facility] Baso Absolute 0.1 0.0 - 0.1 x10(3)/[facility] LABORATORY Immature Gran % 0.40 % [facility] Comment: Immature granulocytes(IG's)percentage and absolute count will include metamyelocytes, myelocytes, and promyelocytes. Blood smears from CBCs yielding IG's will be scanned manually for concordance. If this scan disagrees with the automated IG or if promyelocytes are noted, a manual differential will be performed. Immature Gran Absolute 0.03 0.00 - 0.04 x10(3)/[facility] LABORATORY Blood 06/24/2021 12:5 2 PM EST 06/24/2021 1:02 PM EST Narrative Resulting Agency Comment Spec In Lab Leandra Lopes GEOGRAPHIC ANALYST HEMATOLOGY ORDERAB LES [facility] [place] [address] * (ABNORMAL) Hemogram (06/24/2021 12:52 PM EST) [facility] White Blood Cell 8.5 4.0 - 9.5 x10(3)/ L [facility] Red Blood Cell 4.74 4.00 - 5.21 x10(6)/ L [facility] Hemoglobin 13.9 11.7 - 15.5 g/dL [facility] Hematocrit 40.8 35.7 - 45.8 % [facility] Mean Cell Volume 86.1 82.6 - 94.4 fL [facility] Mean Cell Hemoglobin 29.3 27.1 - 32.0 pg [facility] Mean Cell Hemoglobin Concentration 34.1 31.7 - 35.0 g/dL [facility] Platelet 393(H) 145 - 357 x10(3)/[facility] LABORATORY RDW Standard Deviation 43.5 37.0 - 46.0 [facility] LABORATORY RDW coefficient of variation 13.7 11.5 - 14.1 % [facility] Mean Platelet Volume 9.0 7.6 - 12.9 fL [facility] NRBC% auto 0.0 % [facility] NRBC Absolute 0.000 0.000 - 0.000 x10(3)/ L [facility] Blood 06/24/2021 12:5 2 PM EST 06/24/2021 1:02 PM EST Narrative Resulting Agency Comment Spec In Lab Leandra Lopes APRN HEMATOLOGY ORDERAB LES [facility] [place] [address] * (ABNORMAL) Comprehensive metabolic panel (non-fasting) (06/24/2021 12:52 PM EST) [facility] Glucose 185 65 - 199 mg/dL [facility] Comment:Diabetes: >=200 mg/d L plus symptoms Blood Urea Nitrogen 12 8 - 18 mg/dL [facility] Creatinine 0.91 0.70 - 1.20 mg/dL [facility] [...] questions. Chloride 104 98 - 107 mmol/L [facility] Carbon Dioxide 25 22 - 31 mmol/L [facility] Anion Gap 11 5 - 15 mmol/L [facility] Calcium 9.6 8.5 - 10.5 mg/dL [facility] Protein, Total 6.9 6.1 - 8.0 g/dL [facility] Albumin 4.3 3.2 - 5.2 g/dL [facility] Aspartate Aminotransferase 27 0 - 30 unit/L [facility] Alanine Aminotransferase 34(H) 0 - 30 unit/L [facility] Alkaline Phosphatase 93 35 - 105 unit/L [facility] Bilirubin, Total 0.3 0.2 - 1.3 mg/dL [facility] Est Glomerular Filtration Rate 68 >=60 mL/min/1. 73 m?? [facility] Comment: This patient? s [...] Agency Comment Spec In Lab Leandra Lopes GEOGRAPHIC ANALYST CHEMISTRY ORDERABL ES Performing Organization Address City/[facility]/ZIP Co de Phone Number [facility] [place] [address] * Lactate Dehydrogenase (06/24/2021 12:52 PM EST) Lactate Dehydrogenase 215 110 - 220 unit/L [facility] Blood 06/24/2021 12:5 2 PM EST 06/24/2021 1:02 PM EST Narrative Resulting Agency Comment Spec In Lab Leandra Lopes GEOGRAPHIC ANALYST CHEMISTRY ORDERABL ES Performing Organization Address [facility] Co de Phone Number [facility] [place] [address] documented in this encounter Visit Diagnoses Diagnosis Malignant melanoma of conjunctiva, left History of renal cell cancer Irritable bowel syndrome with constipation Irritable bowel syndrome documented in this encounter Care Teams Elementary Reading Specialist Relationship Specialty Start Date End Date Luis E Narayan MD [facility] DR LILI [place] [address] PCP - General Family Medicine 03/26/19 01/19/22 documented as of this encounter
--- OUTSIDE RECORDS SUMMARY | 2024-08-20 15:58 | XMS_ITS | Encounter Summary ---
Author Organization [facility] [place] [address] Care Team Providers Care Button Riveter Name Role Phone Luis E Narayan MD Primary Care Provider Reason for Referral * Diagnostic Test (Routine) - Closed Specialty Diagnoses / Procedures Referred By Contac t Referred To Contact Radiology Diagnoses Malignant melanoma of conjunctiva, left Procedures CT Chest Abdomen Pelvis w Contrast (Generic) Leandra Lopes APRN [facility] DR HEMATOLOGY [place] [address] [facility] [place] [address] Referral ID Status Reason Start Date Expiration Date V isits Requested Visits Authorized [id number] Closed Specialty Service Requested 12/17/2020 06/18/2022 1 1 Reason for Visit * Diagnostic Test (Routine) - Closed Specialty Diagnoses / Procedures Referred By Contac t Referred To Contact Radiology Diagnoses Malignant melanoma of conjunctiva, left Procedures CT Chest Abdomen Pelvis w Contrast (Generic) Leandra Lopes APRN [facility] DR HEMATOLOGY [place] [address] [facility] [place] [address] Referral ID Status Reason Start Date Expiration Date V isits Requested Visits Authorized [id number] Closed Specialty Service Requested 12/17/2020 06/18/2022 1 1 Encounter Details Date Type Department Care Team (Late st Contact Info) Description 06/24/2021 12:31 PM EST - 06/24/2021 12:42 PM EST Hospital Encounter CT Scan at [facility] [place] [address] Leandra Lopes APRN [facility] DR HEMATOLOGY [place] [address] Malignant melanoma of conjunctiva, left Discharge Disposition: [...] tablet 1 01/08/2021 08/02/2021 FreeStyle Sanjana 2 [place] MiscIndications:diabetes mellitus 1 each by Other route [...] 09/15/2020 09/19/2023 fluticasone propionate (FLONASE) 50 mcg/actuation [place], Suspension 1 spray by Each Nare [...] 1:00 PM EST Hospital Encounter [place] [phone] Roland Gooden MD [facility] [place] [address] 08/29/2024 1:00 PM EST - 08/29/2024 2:00 PM EST Surgery [place] [phone] Roland Gooden MD [facility] [place] [address] EGD, UPPER GI ENDOSCOPY (WRVU 2.09) 10/02/2024 1:00 PM EDT Office [place] [phone] Juanpablo Hernandez MD [facility] [place] [address] 10/21/2024 9:30 AM EDT Office Visit Internal Medicine at [address] [phone] Daryn Garrett MD [facility] DR LILI WALKER - [place] [address] 01/30/2025 1:30 PM EDT Laboratory Appointment Lab at [facility] Hematology Oncology [address] [place] [phone] 01/30/2025 3:[address] [place] [address] Arturo Cordero MD [facility] DR HEMATOLOGY [place] [address] 01/30/2025 4:15 PM EDT Office Visit Hematology [place] [address] Arturo Cordero MD [facility] DR HEMATOLOGY [place] [address] Scheduled Procedures Name Priority Associated Diagnoses Date/Ti [...] have questions please contact the health care attendant that requested your imaging first. ? Electronically signed by: Paulina Saldivar MD, [facility] ([phone]), at 06/24/2021 4:35 PM Narrative 06/24/2021 4:35 [...] who have questions please contactthe health care attendant that requested your imaging first. Electronically signed by: Paulina Saldivar MD, [facility]([phone]), at 06/24/2021 4:35 PM Leandra J Marianne EVENT SALES REPRESENTATIVE IMG CT ORDERABLES documented in this [...] ONCE PRN, 1 dose, Starting on Carolee 12 at 1431, Until Carolee 06/24/21 at 1431, Per Protocol, Warning Vesicant/Irritant Medication , Radiology Contrast, Routine Given 06/24/2021 2:31 PM EST 50 mLs documented in this encounter Care Teams Button Riveter Relationship Specialty Start Date End Date Luis E Narayan MD [facility] [address] [place] [address] PCP - General Family Medicine 03/26/19 01/19/22 documented as of this encounter
--- OUTSIDE RECORDS SUMMARY | 2024-08-20 15:58 | XMS_ITS | Encounter Summary ---
[place] [address] Care Team Providers Care Fraud Prevention Analyst Name Role Phone Luis E Narayan MD Primary Care Provider [phone] Reason for Visit * Consultation (Routine) - Closed Specialty Diagnoses / Procedures Referred By Gonzalez kumari Referred To Contact Gastroenterology Diagnoses Nonalcoholic hepatosteatosis fatty liver disease Tamera Khan, [facility] DR L[place] [address] [facility] [place] 4[place] [address] Referral ID Status Reason Start Date Expiration Date V isits Requested Visits Authorized [id number] Closed Assume Subset of Care 05/31/2021 05/31/2022 1 1 Encounter Details Date Type Department Care Team (Late st Contact Info) Description 07/16/2021 9:00 AM EST Office [place] [address] oSnia Michel, [facility] [address] NAFLD (nonalcoholic fatty liver disease); [...] HEPATOLOGY NEW PATIENT CONSULTATION Alize Gramajo 1960 [employer] CUTTER SPUR: SONIA MICHEL APRN PCP: Luis E Narayan [...] uses inhalerswith good effect ??? 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 fluticasone propionate (FLONASE) 50 mcg/actuation [place], Suspension 1 spray by Each Nare route [...] Michel APRN Section of Gastroenterology and Hepatology [place] [phone] Copy: Luis E Narayan MD [facility] DR LILI WALKER-F[facility]ILY MEDIC[facility] / [place]* documented in this encounter Plan of Treatment Upcoming Encounters Date Type Department Care Team (Latest Contact Info) Description 08/29/2024 1:00 PM EST Hospital Encounter Gastroenterology at [place] [phone] Roland Gooden MD [facility] [place] [address] 08/29/2024 1:00 PM EST - 08/29/2024 2:00 PM EST Surgery Gastroenterology at [place] [phone] Roland Gooden MD [facility] [address] EGD, UPPER GI ENDOSCOPY (WRVU 2.09) 10/02/2024 1:00 PM EDT Office Visit Ophthalmology at [place] [phone] Juanpablo Hernandez MD [facility] [place] [address] 10/21/2024 9:30 AM EDT Office Visit Internal Medicine at [facility] [address] [place] [phone] Daryn Garrett MD [facility] DR [place] [address] 01/30/2025 1:30 PM EDT Laboratory Appointment Lab at [facility] Hematology Oncology [address] [place] [phone] 01/30/2025 3:[address] [place] [phone] Arturo Cordero MD [facility] [place] [address] 01/30/2025 4:15 PM EDT Office Visit Hematology [place] [address] Arturo Cordero MD [facility] [place] [address] Scheduled Procedures Name Priority Associated Diagnoses Date/Ti [...] Hemoglobin A1c 8.2(H) 4.3 - 5.6 % [facility] [...] Mellitus, Diabetes Care 2013; 36: Suppl. 1, S67-55 Estimated Average Glucose 188 mg/dL [facility] Comment: eAG [...] into estimated average glucose values. ??Diabetes Care 2008:31(8):0996-4472. Blood 07/16/2021 10:0 7 AM EST 07/16/2021 10:13 AM EST Narrative Resulting Agency Comment Spec In Lab Sonia Michel APRN CHEMISTRY ORDERABL ES Performing Organization Address [facility] Phone Number [facility] [place] [address] * Hepatitis B Surface Antibody (07/16/2021 10:07 AM EST) Hepatitis B Surface Antibody, Quantitative <3.5 IU/L [facility] Comment: HepB Surface Ab Quant: Unvaccinated: < 8.5 IU/L Vaccinated: > 11.5 IU/L Hepatitis B Surface Antibody Negative [facility] Comment: Patient is presumed to be not vaccinated or immune to HBV infection. Expected Results: Vaccinated: Positive Unvaccinated: Negative Blood 07/16/2021 10:0 7 AM EST 07/16/2021 10:13 AM EST Narrative Resulting Agency Comment Spec In Lab Sonia Michel APRN CHEMISTRY ORDERABL ES Performing Organization Address [facility] Co de Phone Number [facility] [place] [address] * Hepatitis B Surface Antigen (07/16/2021 10:07 AM EST) Hepatitis B Surface Antigen Negative Negative [facility] Blood 07/16/2021 10:0 7 AM EST 07/16/2021 10:13 AM EST Narrative Resulting Agency Comment Spec In Lab Sonia A Mere BIOFUELS PROCESSING TECHNICIAN CHEMISTRY ORDERABL ES Performing Organization Address [facility] de Phone Number [facility] [place] [address] * (ABNORMAL) Ferritin (07/16/2021 10:07 AM EST) Ferritin 27(L) 30 - 400 ng/mL [facility] Comment: Pediatric reference ranges not verified at [facility], interpret with caution. Reference ranges for females greater than 50 years of age approach values for men, i.e., 30-400 ng/mL. Blood 07/16/2021 10:0 7 AM EST 07/16/2021 10:13 AM EST Narrative Resulting Agency Comment Spec In Lab Sonia Michel APRN CHEMISTRY ORDERABL ES Performing Organization Address [facility] Phone Number [facility] [place] [address] * (ABNORMAL) Iron and TIBC (07/16/2021 10:07 AM EST) [facility] Iron 46 30 - 150 mcg/dL [facility] TIBC 368 250 - 450 mcg/dL [facility] Iron Saturation 12(L) 20 - 50 % [facility] Blood 07/16/2021 10:0 7 AM EST 07/16/2021 10:13 AM EST Narrative Resulting Agency Comment Spec In Lab Sonia Michel APRN CHEMISTRY ORDERABL ES Performing Organization Address [facility] de Phone Number [facility] [place] [address] * Comprehensive metabolic panel (non-fasting) (07/16/2021 10:07 AM EST) [facility] Signature Glucose 169 65 - 199 mg/dL [facility] Comment:Diabetes: >=200 mg/d L plus symptoms Blood Urea Nitrogen 14 8 - 18 mg/dL [facility] Creatinine 0.81 0.70 - 1.20 mg/dL [facility] Sodium 140 135 - 145 mmol/L [facility] Potassium 4.6 3.5 - 5.0 mmol/L [facility] Comment: Please note: ??Patients with WBC >100,000 may have falsely elevated Potassium levels. ??For accurate Potassium quantification in these patients send serum separator tube (gold top) for subsequent determinations. ??Contact the Clinical Chemistry Laboratory if there are any questions. Chloride 102 98 - 107 mmol/L [facility] Carbon Dioxide 28 22 - 31 mmol/L [facility] Anion Gap 10 5 - 15 mmol/L [facility] Calcium 9.8 8.5 - 10.5 mg/dL [facility] Protein, Total 7.1 6.1 - 8.0 g/dL [facility] Albumin 4.4 3.2 - 5.2 g/dL [facility] Aspartate Aminotransferase 18 0 - 30 unit/L [facility] Alanine Aminotransferase 26 0 - 30 unit/L [facility] Alkaline Phosphatase 102 35 - 105 unit/L [facility] Bilirubin, Total 0.3 0.2 - 1.3 mg/dL [facility] Est Glomerular Filtration Rate 78 >=60 mL/min/1. 73 m?? [facility] [...] Lab Sonia Michel APRN CHEMISTRY ORDERABL ES [facility] [place] [address] documented in this encounter Visit Diagnoses Diagnosis NAFLD (nonalcoholic fatty liver disease) Other chronic nonalcoholic liver disease Type 2 diabetes mellitus without complication, without long-term current use of insulin Irritable bowel syndrome with constipation Irritable bowel syndrome documented in this encounter Care Teams Fraud Prevention Analyst Relationship Specialty Start Date End Date Luis E Narayan MD [facility] [address] [place] [address] PCP - General Family Medicine 03/26/19 01/19/22 documented as of this encounter
--- OUTSIDE RECORDS SUMMARY | 2024-08-20 15:58 | XMS_ITS | Encounter Summary ---
Author Organization [facility] Address [facility] [place] [address] Care Team Providers Care Plastic Parts Fabricator Name Role Phone Luis E Narayan MD Primary Care Provider [phone] Reason for Referral * Consultation (Routine) - Closed Specialty Diagnoses / Procedures Referred By Gonzalez kumari Referred To Contact Family Medicine Diagnoses Type 2 diabetes mellitus with other specified complication, without long-term current use of insulin Tamera Khan APRN [facility] DR LILI [place] [address] Julia Low, [facility] Referral ID Status Reason Start Date Expiration Date V isits Requested Visits Authorized [id number] Closed Assume Subset of Care 06/14/2021 06/14/2022 [...] PM EST Office Visit Family Medicine at [facility] [address] [place] [address] Celina Narayan MD Diarrhea, unspecified type; Type 2 diabetes mellitus [...] reviewed problem list and med list in [facility] Objective: BP (!) 181/92 (BP Location (NBP): [...] - POCT Fingerstick Glucose - Referral to [facility] (Primary Care Use Only) [...] the patient in person Pertinent History: Per CUPROUS CHLORIDE HELPER note Pertinent Exam: Per CUPROUS CHLORIDE HELPER note Major issues addressed: Per CUPROUS CHLORIDE HELPER note Plan: Per CUPROUS CHLORIDE HELPER note documented in this encounter Plan of Treatment Upcoming Encounters Date Type Department Care Team (Latest Contact Info) Description 08/29/2024 1:00 PM EST Hospital Encounter [place] [address] Roland Gooden MD [facility] [place] [address] 08/29/2024 1:00 PM EST - 08/29/2024 2:00 PM EST [place] [address] Roland Gooden MD [facility] [place] [address] EGD, UPPER GI ENDOSCOPY (WRVU 2.09) 10/02/2024 1:00 PM EDT Office Visit Ophthalmology at [place] [phone] Juanpablo Hernandez MD [facility] [place] [address] 10/21/2024 9:30 AM EDT Office Visit Internal Medicine at [address] [phone] Daryn Garrett MD [facility] DR [place] [address] 01/30/2025 1:30 PM EDT Laboratory Appointment Lab at [facility] Hematology Oncology [address] [place], [place] [phone] 01/30/2025 3:[address] Scan at [place] [phone] Arturo Cordero MD [facility] [place] [address] 01/30/2025 4:15 PM EDT Office Visit Hematology and Oncology at [place] [phone] Arturo Cordero MD [facility] [place] [address] Scheduled Procedures Name Priority Associated Diagnoses Date/Ti me EGD, UPPER GI ENDOSCOPY (WRVU 2.09) Irritable bowel syndrome with constipation 08/29/2024 1:00 PM EST COLONOSCOPY, DIAGNOSTIC (WRVU 3.26) Irritable bowel syndrome with constipation 08/29/2024 1:00 PM EST Scheduled Referrals Name Type Priority Associated Diagnoses Orde r Schedule Referral to [facility] (Primary Care Use Only) [...] insulin Tooth abscess Periapical abscess without sinus Irritable bowel syndrome with constipation Irritable bowel syndrome documented in this encounter Care Teams Plastic Parts Fabricator Relationship Specialty Start Date End Date Luis E Narayan MD [facility] [place] [address] PCP - General Family Medicine 03/26/19 01/19/22 documented as of this encounter
--- OUTSIDE RECORDS SUMMARY | 2024-08-20 15:58 | XMS_ITS | Encounter Summary ---
[place] [address] Care Team Providers Care Sheep Killer Name Role Phone Luis E Narayan MD Primary Care Provider +1- [phone] Encounter Details Date Type Department Care Team (Late st Contact Info) Description 02/04/2021 Telephone [place] [address] Malika Ye Social History Tobacco Use Types [...] 1:00 PM EST Hospital Encounter [place] [address] Roland Gooden MD [facility] [place] [address] 08/29/2024 1:00 PM EST - 08/29/2024 2:00 PM EST Surgery [place] [phone] Roland Gooden MD [facility] [place] [address] EGD, UPPER GI ENDOSCOPY (WRVU 2.09) 10/02/2024 1:00 PM EDT Office Visit Ophthalmology at [place] [phone] Juanpablo Hernandez MD [facility] [place] [address] 10/21/2024 9:30 AM EDT Office Visit Internal Medicine at [address] [phone] Daryn [place] MD [facility] [place] [address] 01/30/2025 1:30 PM EDT Laboratory Appointment Lab at [facility] Hematology Oncology [address] [place] [phone] 01/30/2025 3:[address] [place] [phone] Arturo Cordero MD [facility] HEMATOLOGY [place] [address] 01/30/2025 4:15 PM EDT Office Visit Hematology [place] [phone] Arturo Cordero MD [facility] HEMATOLOGY [place] [address] Scheduled Procedures Name Priority Associated Diagnoses Date/Ti me EGD, UPPER GI ENDOSCOPY (WRVU 2.09) Irritable bowel syndrome with constipation 08/29/2024 1:00 PM EST COLONOSCOPY, DIAGNOSTIC (WRVU 3.26) Irritable bowel syndrome with constipation 08/29/2024 1:00 PM EST documented as of this encounter Visit Diagnoses Not on filedocumented in this encounter Care Teams Sheep Killer Relationship Specialty Start Date End Date Luis E Narayan MD [facility] DR LILI WALKER[place] [address] PCP - General Family Medicine 03/26/19 01/19/22 documented as of this encounter
--- OUTSIDE RECORDS SUMMARY | 2024-08-20 15:58 | XMS_ITS | Encounter Summary ---
Author Organization [facility] Address [facility] [place] [address] Care Team Providers Care Panelboard Tank Pumper Name Role Phone Luis E Narayan MD Primary Care Provider [phone]- [phone] Reason for Visit * Reason Onset Date Comments Medication Refill 03/18/2021 Encounter Details Date Type Department Care Team (Late st Contact Info) Description 03/18/2021 Refill Family Medicine at [facility] [address] [place] [address] Luis E Narayan MD [facility] DR LILI [place] [address] Social History Tobacco Use Types Packs/Day Years [...] 1:00 PM EST Hospital Encounter [place] [address] Roland Gooden MD [facility] [place] [address] 08/29/2024 1:00 PM EST - 08/29/2024 2:00 PM EST Surgery [place] [phone] Roland Gooden MD [facility] [place] [place] [address] EGD, UPPER GI ENDOSCOPY (WRVU 2.09) 10/02/2024 1:00 PM EDT Office [place] [address] Juanpablo Hernandez MD [facility] [place] [address] 10/21/2024 9:30 AM EDT Office Visit Internal Medicine at [place] [address] [place] [address] Daryn [place] MD [facility] DR LIL[place] [address] 01/30/2025 1:30 PM EDT Laboratory Appointment Lab at [facility] Hematology Oncology [address] [place], [place] [phone] 01/30/2025 3:[address] Scan at [place] [phone] Arturo Cordero MD [facility] [place] [address] 01/30/2025 4:15 PM EDT Office Visit Hematology [place] [phone] Arturo Cordero MD [facility] [place] [address] Scheduled Procedures Name Priority Associated Diagnoses Date/Ti me EGD, UPPER GI ENDOSCOPY (WRVU 2.09) Irritable bowel syndrome with constipation 08/29/2024 1:00 PM EST COLONOSCOPY, DIAGNOSTIC (WRVU 3.26) Irritable bowel syndrome with constipation 08/29/2024 1:00 PM EST documented as of this encounter Visit Diagnoses Not on filedocumented in this encounter Care Teams Panelboard Tank Pumper Relationship Specialty Start Date End Date Luis E Narayan MD [facility] DR LILI [place] [address] PCP - General Family Medicine 9/17/19 7/13/22 documented as of this encounter
--- OUTSIDE RECORDS SUMMARY | 2024-08-20 15:58 | XMS_ITS | Encounter Summary ---
Author Organization [facility] [place] [address] Care Team Providers Care Pc Network Technician Name Role Phone Luis E Narayan MD Primary Care Provider +1- [phone] Reason for Referral * Consultation (Routine) - Closed Specialty Diagnoses / Procedures Referred By Gonzalez kumari Referred To Contact General Surgery Diagnoses Bloating Alternating constipation and diarrhea [place] [address] Torito Coon MD [address] [place] [address] Referral ID Status Reason Start Date Expiration Date V isits Requested Visits Authorized [id number] Closed Test Only 02/03/2021 08/02/2021 1 1 Reason for Visit * Reason Comments Follow-up Been significantly w orse for past 3 days. Other Wants to ask liliana n about small hernia on CT scan in December and discuss possible IBS Encounter Details Date Type Department Care Team (Late st Contact Info) Description 02/03/2021 4:00 PM EDT Office Visit Internal Medicine at [facility] [address] [place] [phone] [place] [address] Bloating; Alternating constipation and diarrhea Social History [...] Diagnosis Code ??? 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 Altered [...] 1:00 PM EST Hospital En[place] [phone] Roland Gooden MD [facility] [place] [address] 08/29/2024 1:00 PM EST - 08/29/2024 2:00 PM EST [place] [phone] Roland Gooden MD [facility] [address] EGD, UPPER GI ENDOSCOPY (WRVU 2.09) 10/02/2024 1:00 PM EDT Office [place] [phone] Juanpablo Hernandez MD [facility] OPHTHALMOLOGY [place], [place] [phone] 10/21/2024 9:30 AM EDT Office Visit Internal Medicine at [address] [phone] Daryn [place] MD [facility] DR LIL[place] [address] 01/30/2025 1:30 PM EDT Laboratory Appointment Lab at [facility] Hematology Oncology [address] [place] [phone] 01/30/2025 3:[address] [place] [address] Arturo Cordero MD [facility] DR [place] [address] 01/30/2025 4:15 PM EDT Office Visit [place]ology [place] [address] Arturo Cordero MD [facility] DR [place] [address] Scheduled Procedures Name Priority Associated Diagnoses Date/Ti [...] and diarrhea Other symptoms involving digestive system Irritable bowel syndrome with constipation Irritable bowel syndrome documented in this encounter Care Teams Pc Network Technician Relationship Specialty Start Date End Date Luis E Narayan MD [facility] [address] [place] [address] PCP - General Family Medicine 03/26/19 01/19/22 documented as of this encounter
--- OUTSIDE RECORDS SUMMARY | 2024-08-20 15:58 | XMS_ITS | Encounter Summary ---
Author Organization [facility] [place] [address] Care Team Providers Care Painter Aircraft Name Role Phone Luis E Narayan MD Primary Care Provider Encounter Details Date Type Department Care Team (Late st Contact Info) Description 03/31/2021 Orders Only Family Medicine at [address] [place] [address] Alejandra Posadas, RN Social History Tobacco Use [...] slept in a custodial (including now)? No 02/03/2021 Sex and Gender Information Value Date Recorded Sex Assigned at Not on file Gender Identity Not on file Sexual Orientation Not on file documented as of this encounter Plan of Treatment Upcoming Encounters Date Type Department Care Team (Latest Contact Info) Description 08/29/2024 1:00 PM EST Hospital Encounter Gastroenterology at [place] [phone] Roland Gooden MD [facility] [place] [address] 08/29/2024 1:00 PM EST - 08/29/2024 2:00 PM EST Surgery Gastroenterology at [place] [phone] Roland Gooden MD [facility] [address] EGD, UPPER GI ENDOSCOPY (WRVU 2.09) 10/02/2024 1:00 PM EDT Office Visit Ophthalmology at [place] [phone] Juanpablo Hernandez MD [facility] [place] [address] 10/21/2024 9:30 AM EDT Office Visit Internal Medicine at [facility] [address] [place] [address] Daryn [place] MD [facility] DR LILI [place] [address] 01/30/2025 1:30 PM EDT Laboratory Appointment Lab at [facility] Hematology Oncology [address] [place] [phone] 01/30/2025 3:[address] [place] [phone] Arturo Cordero MD [facility] [place] [address] 01/30/2025 4:15 PM EDT Office Visit [place] [phone] Arturo Cordero MD [facility] [place] [address] Scheduled Procedures Name Priority Associated Diagnoses Date/Ti me EGD, UPPER GI ENDOSCOPY (WRVU 2.09) Irritable bowel syndrome with constipation 08/29/2024 1:00 PM EST COLONOSCOPY, DIAGNOSTIC (WRVU 3.26) Irritable bowel syndrome with constipation 08/29/2024 1:00 PM EST documented as of this encounter Visit Diagnoses Not on filedocumented in this encounter Care Teams Painter Aircraft Relationship Specialty Start Date End Date Luis E Narayan MD [facility] DR LILI [place] [address] PCP - General Family Medicine 03/26/19 01/19/22 documented as of this encounter
--- OUTSIDE RECORDS SUMMARY | 2024-08-20 15:59 | XMS_ITS | Encounter Summary ---
[place] [address] Care Team Providers Care Metal Sash Setter Name Role Phone Luis E Narayan MD Primary Care Provider Encounter Details Date Type Department Care Team (Late st Contact Info) Description 12/10/2020 E-[place] [phone] Julia Low, [facility] Medication management Social History Tobacco Use [...] Miscellaneous Notes * E-Consult - Julia Faustin [facility] - 12/10/2020 8:16 AM EDT Select [...] your test results may be less accurate. https://www.[facility].org/diseases-conditions/diabetes/expert-answers/blood-glu cose-monitors/faq-52272291 Reviewed test claims: Freestyle Sanjana 2 sensors [...] while using the Sensor. See your health progressive care nurse to understand how long ascorbic acid is active in your body. https://www.[employer]/us-en/safety-information.html This eConsult is focused on the specific [...] 1:00 PM EST Hospital Encounter [place] [address] Roland Gooden MD [facility] [place] [address] 08/29/2024 1:00 PM EST - 08/29/2024 2:00 PM EST Surgery [place] [address] Roland Gooden MD [facility] [place] [address] EGD, UPPER GI ENDOSCOPY (WRVU 2.09) 10/02/2024 1:00 PM EDT Office Visit Ophthalmology at [place] [phone] Juanpablo Hernandez MD [facility] [place] [address] 10/21/2024 9:30 AM EDT Office Visit Internal Medicine at [address] [phone] Daryn [place] MD [facility] DR [place] [address] 01/30/2025 1:30 PM EDT Laboratory Appointment Lab at [facility] Hematology Oncology [address] [place] [phone] 01/30/2025 3:[address] Scan at [place] [phone] Arturo Cordero MD [facility] [place] [address] 01/30/2025 4:15 PM EDT Office Visit Hematology and Oncology at [place] [phone] Arturo Cordero MD [facility] [place] [address] Scheduled Procedures Name Priority Associated Diagnoses Date/Ti nc EGD, UPPER GI ENDOSCOPY (WRVU 2.09) Irritable bowel syndrome with constipation 08/29/2024 1:00 PM EST COLONOSCOPY, DIAGNOSTIC (WRVU 3.26) Irritable bowel syndrome with constipation 08/29/2024 1:00 PM EST documented as of this encounter Visit Diagnoses Diagnosis Medication management Encounter for long-term (current) use of other medications Irritable bowel syndrome with constipation Irritable bowel syndrome documented in this encounter Care Teams Metal Sash Setter Relationship Specialty Start Date End Date Luis E Narayan MD [facility] DR LILI [place] [address] PCP - General Family Medicine 03/26/19 01/19/22 documented as of this encounter
--- OUTSIDE RECORDS SUMMARY | 2024-08-20 15:59 | XMS_ITS | Encounter Summary ---
Author Organization [facility] [place] [address] Care Team Providers Care Concert Singer Name Role Phone Luis E Narayan MD Primary Care Provider Encounter Details Date Type Department Care Team (Late st Contact Info) Description 09/21/2020 Telephone [address] Medicine at [facility] [address] [place] [phone] Alejandra Posadas, RN Social History Tobacco Use [...] Posadas RN - 09/23/2020 12:24 PM EDT Veterinary Radiologist returned call. He was wondering when patient was referred to [facility], advised referrals were made 05/10/2019 and 08/05/2019. Gave him their department number to speak about the wait time. * Telephone Encounter - Alejandra Posadas RN - 09/23/2020 11:56 AM EDT Faxed letter. Left massage at review analyst's office that I did this and invited him to call if anything else is needed of primary care. Placed in Medical records * Telephone Encounter - Luis E Narayan MD - 09/23/2020 11:52 AM EDT Letter done. * Telephone Encounter - Alejandra Posadas RN - 09/21/2020 8:53 AM EDT Called placed to Law office at [phone] They would like fax of prior communications sent back to them with those dates as well as a correspondence dated today with PCP's message: Dr. Narayan is not trained or equipped to make disability determinations. He believes that there are several specialists in the community who do this work, although he can't make any specific referrals. Law office fax is [phone] Forms are in media dated 08/20/20 Message 08/21 states forms were faxed back, although I don't see forms in scan docs with PCP commenton them documented in this encounter Plan of Treatment Upcoming Encounters Date Type Department Care Team (Latest Contact Info) Description 08/29/2024 1:00 PM EST Hospital Encounter [place] [phone] Roland Gooden MD [facility] [place] [address] 08/29/2024 1:00 PM EST - 08/29/2024 2:00 PM EST Surgery [place] [phone] Roland Gooden MD [facility] [place] [address] EGD, UPPER GI ENDOSCOPY (WRVU 2.09) 10/02/2024 1:00 PM EDT Office [place] [phone] Juanpablo Hernandez MD [facility] [place] [address] 10/21/2024 9:30 AM EDT Office Visit Internal Medicine at [address] [phone] Daryn [place] MD [facility] DR [place] [address] 01/30/2025 1:30 PM EDT Laboratory Appointment Lab at [facility] Hematology Oncology [address] [place] [phone] 01/30/2025 3:[address] [place] [phone] Arturo Cordero MD [facility] [place] [address] 01/30/2025 4:15 PM EDT Office Visit Hematology [place] [address] Arturo Cordero MD [facility] [place] [address] Scheduled Procedures Name Priority Associated Diagnoses Date/Ti me EGD, UPPER GI ENDOSCOPY (WRVU 2.09) Irritable bowel syndrome with constipation 08/29/2024 1:00 PM EST COLONOSCOPY, DIAGNOSTIC (WRVU 3.26) Irritable bowel syndrome with constipation 08/29/2024 1:00 PM EST documented as of this encounter Visit Diagnoses Not on filedocumented in this encounter Care Teams Concert Singer Relationship Specialty Start Date End Date Luis E Narayan MD [facility] DR LILI [place] [address] PCP - General Family Medicine 03/26/19 01/19/22 documented as of this encounter
--- OUTSIDE RECORDS SUMMARY | 2024-08-20 15:59 | XMS_ITS | Encounter Summary ---
Author Organization [facility] [place] [address] Care Team Providers Care Chorus Master Name Role Phone Luis E Narayan MD Primary Care Provider Reason for Visit * Reason Onset Date Comments Back Pain 10/20/2020 Encounter Details Date Type Department Care Team (Late st Contact Info) Description 10/20/2020 Refill [address] Medicine at [facility] [address] [place] [address] Cara Thomas, key account coordinator bilateral low back pain without sciatica Social [...] the flexeril is called in, she should brick picker albert. Advised that before a steroid [...] 1:00 PM EST Hospital Encounter [place] [phone] Roland Gooden MD [facility] [place] [place] [address] 08/29/2024 1:00 PM EST - 08/29/2024 2:00 PM EST Surgery [place] [phone] Roland Gooden MD [facility] [place] [address] EGD, UPPER GI ENDOSCOPY (WRVU 2.09) 10/02/2024 1:00 PM EDT Office [place] [phone] Juanpablo Hernandez MD [facility] [place] [address] 10/21/2024 9:30 AM EDT Office Visit Internal Medicine at [place] [address] [place] [phone] Daryn [place] MD [facility] DR LILI [place] [address] 01/30/2025 1:30 PM EDT Laboratory Appointment Lab at [facility] Hematology Oncology [address] [place] [phone] 01/30/2025 3:[address] [place] [phone] Arturo Cordero MD [facility] [place] [address] 01/30/2025 4:15 PM EDT Office Visit Hematology [place] [phone] Arturo Cordero MD [facility] DR [place] [address] Scheduled Procedures Name Priority Associated Diagnoses Date/Ti me EGD, UPPER GI ENDOSCOPY (WRVU 2.09) Irritable bowel syndrome with constipation 08/29/2024 1:00 PM EST COLONOSCOPY, DIAGNOSTIC (WRVU 3.26) Irritable bowel syndrome with constipation 08/29/2024 1:00 PM EST documented as of this encounter Visit Diagnoses Diagnosis Chronic bilateral low back pain without sciatica Irritable bowel syndrome with constipation Irritable bowel syndrome documented in this encounter Care Teams Chorus Master Relationship Specialty Start Date End Date Luis E Narayan MD [facility] DR LILI [place] [address] PCP - General Family Medicine 03/26/19 01/19/22 documented as of this encounter
--- OUTSIDE RECORDS SUMMARY | 2024-08-20 15:59 | XMS_ITS | Encounter Summary ---
Author Organization [facility] Address [facility] [place] [address] Care Team Providers Care Reproduction Specialist Name Role Phone Luis E Narayan MD Primary Care Provider Reason for Visit * Reason Comments Cancer Encounter Details Date Type Department Care Team (Late st Contact Info) Description 09/30/2020 12:45 PM EDT Office [place] [address] Juanpablo Hernandez MD [facility] [place] [address] Malignant melanoma of conjunctiva, left Social History [...] 1:00 PM EST Hospital Encounter Gastroenterology at [place] [phone] Roland Gooden MD [facility] [place] [address] 08/29/2024 1:00 PM EST - 08/29/2024 2:00 PM EST Surgery [place] [address] Roland Gooden MD [facility] [place] [address] EGD, UPPER GI ENDOSCOPY (WRVU 2.09) 10/02/2024 1:00 PM EDT Office Visit Ophthalmology at [place] [phone] Juanpablo Hernandez MD [facility] [address] 10/21/2024 9:30 AM EDT Office Visit Internal Medicine at [address] [phone] Daryn [place] MD [facility] DR LILI [place] [address] 01/30/2025 1:30 PM EDT Laboratory Appointment Lab at [facility] Hematology Oncology [address] [place] [phone] 01/30/2025 3:[address] [place] [address] Arturo Cordero MD [facility] DR [place] [address] 01/30/2025 4:15 PM EDT Office Visit Hematology [place] [address] Arturo Cordero MD [facility] DR [place] [address] Scheduled Procedures Name Priority Associated Diagnoses Date/Ti me EGD, UPPER GI ENDOSCOPY (WRVU 2.09) Irritable bowel syndrome with constipation 08/29/2024 1:00 PM EST COLONOSCOPY, DIAGNOSTIC (WRVU 3.26) Irritable bowel syndrome with constipation 08/29/2024 1:00 PM EST documented as of this encounter Visit Diagnoses Diagnosis Malignant melanoma of conjunctiva, left Irritable bowel syndrome with constipation Irritable bowel syndrome documented in this encounter Care Teams Reproduction Specialist Relationship Specialty Start Date End Date Luis E Narayan MD [facility] DR LILI [place] [address] PCP - General Family Medicine 03/26/19 01/19/22 documented as of this encounter
--- OUTSIDE RECORDS SUMMARY | 2024-08-20 15:59 | XMS_ITS | Encounter Summary ---
Author Organization [facility] [place] [address] Care Team Providers Care Supply Chain Analyst Name Role Phone Luis E Narayan MD Primary Care Provider Encounter Details Date Type Department Care Team (Late st Contact Info) Description 11/03/2020 Telephone Family Medicine at [facility] [address] [place] [phone] Thania Flores, RN Social History Tobacco Use [...] 1:00 PM EST Hospital En[place] [phone] Roland Gooden MD [facility] [place] [address] 08/29/2024 1:00 PM EST - 08/29/2024 2:00 PM EST Surgery Gastroenterology at [place] [phone] Roland Gooden MD [facility] [address] EGD, UPPER GI ENDOSCOPY (WRVU 2.09) 10/02/2024 1:00 PM EDT Office [place] [phone] Juanpablo Hernandez MD [facility] [place] [address] 10/21/2024 9:30 AM EDT Office Visit Internal Medicine at [address] [phone] Daryn Garrett MD [facility] DR LILI [place] [address] 01/30/2025 1:30 PM EDT Laboratory Appointment Lab at [facility] Hematology Oncology [address] [place] [phone] 01/30/2025 3:[address] [place] [address] Arturo Cordero MD [facility] HEMATOLOGY [place] [address] 01/30/2025 4:15 PM EDT Office Visit Hematology [place] [address] Arturo Cordero MD [facility] DR HEMATOLOGY [place] [address] Scheduled Procedures Name Priority Associated Diagnoses Date/Ti me EGD, UPPER GI ENDOSCOPY (WRVU 2.09) Irritable bowel syndrome with constipation 08/29/2024 1:00 PM EST COLONOSCOPY, DIAGNOSTIC (WRVU 3.26) Irritable bowel syndrome with constipation 08/29/2024 1:00 PM EST documented as of this encounter Visit Diagnoses Not on filedocumented in this encounter Care Teams Supply Chain Analyst Relationship Specialty Start Date End Date Luis E Narayan MD [facility] [address] [place] [address] PCP - General Family Medicine 03/26/19 01/19/22 documented as of this encounter
--- OUTSIDE RECORDS SUMMARY | 2024-08-20 15:59 | XMS_ITS | Encounter Summary ---
Author Organization [facility] Address [facility] [place] [address] Care Team Providers Care State Auditor Name Role Phone Luis E Narayan MD Primary Care Provider Reason for Visit * Reason Comments Tearing Encounter Details Date Type Department Care Team (Late st Contact Info) Description 09/15/2020 3:00 PM EST Office [place] [address] Juanpablo Hernandez MD [facility] [place] [address] Malignant melanoma of conjunctiva, left; Keratitis Social [...] 1:00 PM EST Hospital Encounter [place] [phone] Roland Gooden MD [facility] [place] [address] 08/29/2024 1:00 PM EST - 08/29/2024 2:00 PM EST Surgery [place] [phone] Roland Gooden MD [facility] [place] [address] EGD, UPPER GI ENDOSCOPY (WRVU 2.09) 10/02/2024 1:00 PM EDT Office [place] [phone] Juanpablo Hernandez MD [facility] DR [place] [address] 10/21/2024 9:30 AM EDT Office Visit Internal Medicine at [place] [address] [place] [phone] Daryn Garrett MD [facility] DR LILI AZEVEDO - [place] [address] 01/30/2025 1:30 PM EDT Laboratory Appointment Lab at [facility] Hematology Oncology [address] [place] [phone] 01/30/2025 3:[address] [place] [address] Arturo Cordero MD [facility] DR HEMATOLOGY [place] [address] 01/30/2025 4:15 PM EDT Office Visit Hematology [place] [address] Arturo Cordero MD [facility] DR HEMATOLOGY [place] [address] Scheduled Procedures Name Priority Associated Diagnoses Date/Ti me EGD, UPPER GI ENDOSCOPY (WRVU 2.09) Irritable bowel syndrome with constipation 08/29/2024 1:00 PM EST COLONOSCOPY, DIAGNOSTIC (WRVU 3.26) Irritable bowel syndrome with constipation 08/29/2024 1:00 PM EST documented as of this encounter Visit Diagnoses Diagnosis Malignant melanoma of conjunctiva, left Keratitis Unspecified keratitis Irritable bowel syndrome with constipation Irritable bowel syndrome documented in this encounter Care Teams State Auditor Relationship Specialty Start Date End Date Luis E Narayan MD [facility] DR LILI AZEVEDO-[place] [address] PCP - General Family Medicine 03/26/19 01/19/22 documented as of this encounter
--- OUTSIDE RECORDS SUMMARY | 2024-08-20 15:59 | XMS_ITS | Encounter Summary ---
[place] [address] Care Team Providers Care Trimmer Buffing Wheel Name Role Phone Luis E Narayan MD Primary Care Provider Reason for Referral * Diagnostic Test (Routine) - Closed Specialty Diagnoses / Procedures Referred By Gonzalez kumari Referred To Contact Radiology Diagnoses Malignant melanoma of conjunctiva, left Procedures CT Chest Abdomen Pelvis w Contrast (Generic) Leandra Black APRN [facility] DR [place] [address] [facility] [place] [address] Referral ID Status Reason Start Date Expiration Date V isits Requested Visits Authorized [id number] Closed Specialty Service Requested 12/17/2020 06/18/2022 1 1 Reason for Visit * Reason Comments Follow-up Encounter Details Date Type Department Care Team (Late st Contact Info) Description 12/17/2020 3:45 PM EDT Office Visit [place]ematology [place] [address] Arturo Cordero MD [facility] DR [place] [address] Leandra Black APRN [facility] [place] [address] Malignant melanoma of conjunctiva, left; History of [...] from the original note were not included. [facility] CL[facility]IC FOLLOW UP NOTE REFERING [...] management - fall 2018: saw a new sausage wrapper and was referred to Dr. 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 Medina - 03/31/2020: saw her sausage wrapper Dr. Hernandez and was noted to have [...] uses inhalerswith good effect ??? Atherosclerosis of [place] coronary artery of [place] heart with angina pectoris 10/09/2007 History of [...] 3.47) performed by Juanpablo Hernandez MD at [facility] ??? PRO EXCIS CORNEA LESN Left 05/14/2020 EXCISION OF LESION, CORNEA, EXCEPT PTERYGIUM (WRVU 7.5) performed by Juanpablo Hernandez MD at [facility] ??? PRO LAP, PARTIAL NEPHRECTOMY Left 06/28/2019 LAPAROSCOPY, PARTIAL NEPHRECTOMY, ROBOTIC ASSIST (WRVU 27.41) performed by Avila Medina MD at [facility] OR ??? 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 Leandra Black DNP, THREAD CUTTER TENDER Return in 3 mos for stand alone US RTC in 6 mos with labs, clinic appointment and CT scan documented in this encounter Plan of Treatment Upcoming Encounters Date Type Department Care Team (Latest Contact Info) Description 08/29/2024 1:00 PM EST Hospital Encounter Gastroenterology at [place] [phone] Roland Gooden MD [facility] [place] [address] 08/29/2024 1:00 PM EST - 08/29/2024 2:00 PM EST [place] [phone] Roland Gooden MD [facility] [place] [address] EGD, UPPER GI ENDOSCOPY (WRVU 2.09) 10/02/2024 1:00 PM EDT Office [place] [phone] Juanpablo Hernandez MD [facility] [place] [address] 10/21/2024 9:30 AM EDT Office Visit Internal Medicine at [facility] [address] [place] [phone] Daryn Garrett MD [facility] DR ILLI [place] [address] 01/30/2025 1:30 PM EDT Laboratory Appointment Lab at [facility] Hematology Oncology [address] [place] [phone] 01/30/2025 3:[address] [place] [phone] Arturo Cordero MD [facility] DR [place] [address] 01/30/2025 4:15 PM EDT Office Visit [place]ematology [place] [address] Arturo Cordero MD [facility] DR [place] [address] Scheduled Procedures Name Priority Associated Diagnoses Date/Ti [...] have questions please contact the health healthcare financial analyst that requested your imaging first. ? Electronically signed by: Paulina Saldivar MD, [facility] ([phone]), at 06/24/2021 4:35 PM Narrative 06/24/2021 4:35 [...] who have questions please contactthe health healthcare financial analyst that requested your imaging first. Leandra Black APRN IMG CT ORDERABLES * Lactate Dehydrogenase (06/24/2021 12:52 PM EST) Lactate Dehydrogenase 215 110 - 220 unit/L [facility] Blood 06/24/2021 12:5 2 PM EST 06/24/2021 1:02 PM EST Narrative Resulting Agency Comment Spec In Lab Leandra Black APRN CHEMISTRY ORDERABL ES Performing Organization Address City/State/[facility] Co de Phone Number [facility] [place] [phone] * (ABNORMAL) Comprehensive metabolic panel (non-fasting) (06/24/2021 [...] Lab Leandra Black APRN CHEMISTRY ORDERABL ES [facility] [place] [address] * US Soft Tissue Head Or Neck [...] have questions, please contact the health healthcare financial analyst that requested your imaging first. ?Faina Hernadez, Staff Physician Electronically Signed Final Report ?? 03/19/2021 12:13 pm Narrative 03/19/2021 12:13 PM EDT Ultrasound Soft Tissue ?(Signed Final 03/19/2021 12:13 pm) Neck or Head Report PATIENT INFO: ID #: ? [id number] ?: ??[birth year] (60 yrs)(F) Name: ? PATIENCE MANJARREZ ? Visit Date: 03/19/2021 10:54 am PERFORMED BY: Performed By: ? Tonia Lopes RDMS Attending: ?Favio COLVIN, Faina Nielsen Referred By: ?LEANDRA BLACK Location: ? [place] SERVICE(S) PROVIDED: USTN - Soft Tissue Neck or Head - [id number] ? [id number] INDICATIONS: History of left eye conjunctival melanoma [...] or Head Report PATIENT INFO: ID #: [id number] : 58 (60 yrs)(F) Name: PATIENCE MANJARREZ Visit Date: 03/19/2021 10:54 am PERFORMED BY: Performed By: Tonia Lopes RDMS Attending: Faina Hernández MD Referred By: LEANDRA BLACK Location: [place] SERVICE(S) PROVIDED: USTN - Soft Tissue Neck or Head - [id number] INDICATIONS: History of left eye conjunctival melanoma [...] have questions, please contact the health healthcare financial analyst that requested your imaging first. Faina Hernández-Carlos [...] syndrome documented in this encounter Care Teams Trimmer Buffing Wheel Relationship Specialty Start Date End Date Luis E Narayan MD [facility] DR LILI [place] [address] PCP - General Family Medicine 03/26/19 01/19/22 documented as of this encounter
--- OUTSIDE RECORDS SUMMARY | 2024-08-20 15:59 | XMS_ITS | Encounter Summary ---
[place] [address] Care Team Providers Care Supervisor Press Room Name Role Phone Luis E Narayan MD Primary Care Provider [phone] Encounter Details Date Type Department Care Team (Latest Contact Info) Description 09/15/2020 12:00 PM EST Clinical [place] [address] Malika Ye Cigarette nicotine dependence without complication [...] EST ..Tobacco Treatment Consultation [place] ([place] [address] FAX: Alize Gramajo is a 59 y.o. female seen today for smoking cessation counseling. She is currently smoking [place] and does wish to quit soon. [...] in places where it is forbidden? (ex. religious) No Yes 1 3. Which cigarette would [...] The patient has been provided with a [facility] Smoking Cessation packet and offered a Forever [...] 34 Malika Ye 09/15/20 Tobacco Treatment Program [facility] documented in this encounter Plan of Treatment Upcoming Encounters Date Type Department Care Team (Latest Contact Info) Description 08/29/2024 1:00 PM EST Hospital En[place] [address] Roland Gooden MD [facility] [place] [address] 08/29/2024 1:00 PM EST - 08/29/2024 2:00 PM EST [place] [phone] Roland Gooden MD [facility] [place] [address] EGD, UPPER GI ENDOSCOPY (WRVU 2.09) 10/02/2024 1:00 PM EDT Office [place] [address] Juanpablo Hernandez MD [facility] [place] [address] 10/21/2024 9:30 AM EDT Office Visit Internal Medicine at [place] [address] [place] [phone] Daryn Garrett MD [facility] DR LILI [place] [address] 01/30/2025 1:30 PM EDT Laboratory Appointment Lab at [facility] Hematology Oncology [address] [place] [phone] 01/30/2025 3:[address] [place] [place] [phone] Arturo Cordero MD [facility] [place] [address] 01/30/2025 4:15 PM EDT Office Visit Hematology [place] [phone] Arturo Cordero MD [facility] [place] [address] Scheduled Procedures Name Priority Associated Diagnoses Date/Ti me EGD, UPPER GI ENDOSCOPY (WRVU 2.09) Irritable bowel syndrome with constipation 08/29/2024 1:00 PM EST COLONOSCOPY, DIAGNOSTIC (WRVU 3.26) Irritable bowel syndrome with constipation 08/29/2024 1:00 PM EST documented as of this encounter Visit Diagnoses Diagnosis Cigarette nicotine dependence without complication Tobacco use disorder Irritable bowel syndrome with constipation Irritable bowel syndrome documented in this encounter Care Teams Supervisor Press Room Relationship Specialty Start Date End Date Luis E Narayan MD [facility] DR LILI [place] [address] PCP - General Family Medicine 03/26/19 01/19/22 documented as of this encounter
--- OUTSIDE RECORDS SUMMARY | 2024-08-20 15:59 | XMS_ITS | Encounter Summary ---
Author Organization [facility] [place] [address] Care Team Providers Care Nitric Acid Concentrator Operator Name Role Phone Luis E Narayan MD Primary Care Provider Encounter Details Date Type Department Care Team (Latest Contact Info) Description 09/15/2020 9:26 AM EST - 09/15/2020 11:59 PM EST Hospital [place] [address] Arturo Vincent MD [facility] DR [place] [address] Malignant melanoma of conjunctiva, left Discharge Disposition: [...] 09/15/2020 10/21/2020 fluticasone propionate (FLONASE) 50 mcg/actuation [place], Suspension 1 spray by Each Nare route [...] 1:00 PM EST Hospital Encounter [place] [address] Roland Gooden MD [facility] [address] 08/29/2024 1:00 PM EST - 08/29/2024 2:00 PM EST Surgery [place] [phone] Roland Gooden MD [facility] [place] [address] EGD, UPPER GI ENDOSCOPY (WRVU 2.09) 10/02/2024 1:00 PM EDT Office [place] [address] Juanpablo Hernandez MD [facility] [place] [address] 10/21/2024 9:30 AM EDT Office Visit Internal Medicine at [facility] [address] [place] [phone] Daryn Garrett MD [facility] DR LILI [place] [address] 01/30/2025 1:30 PM EDT Laboratory Appointment Lab at [facility] Hematology Oncology [address] [place] [phone] 01/30/2025 3:[address] [place] [phone] Arturo Vincent MD [facility] [place] [address] 01/30/2025 4:15 PM EDT Office Visit Hematology [place] [phone] Arturo Vincent MD [facility] DR [place] [address] Scheduled Procedures Name Priority Associated Diagnoses Date/Ti [...] -Left Neck PATIENT INFO: ID #: ? [id number] ?: ??[birth year] (59 yrs)(F) Name: ? PATIENCE MANJARREZ ? Visit Date: 09/15/2020 09:42 am PERFORMED BY: Performed By: ? Kaela Bruno RDMS Attending: ?Sofy COLVIN, Nakia Andrade Referred By: ?ARTURO VINCENT Location: ? [place] SERVICE(S) PROVIDED: USTN - Soft Tissue Neck or Head - [id number] ? [id number] INDICATIONS: History of left eye conjunctival melanoma [...] Report -Left Neck PATIENT INFO: ID #: [id number] : [birth year] (59 yrs)(F) Name: PATIENCE MANJARREZ Visit Date: 09/15/2020 09:42 am PERFORMED BY: Performed By: Kaela Bruno RDMS Attending: Nakia Goetz MD Referred By: ARTURO VINCENT Location: [place] SERVICE(S) PROVIDED: USTN - Soft Tissue Neck or Head - [id number] INDICATIONS: History of left eye conjunctival melanoma [...] syndrome documented in this encounter Care Teams Nitric Acid Concentrator Operator Relationship Specialty Start Date End Date Luis E Narayan MD [facility] [address] [address] PCP - General Family Medicine 03/26/19 01/19/22 documented as of this encounter
--- OUTSIDE RECORDS SUMMARY | 2024-08-20 15:59 | XMS_ITS | Encounter Summary ---
Author Organization [facility] Address [facility] [place] [address] Care Team Providers Care Cpa Tax Name Role Phone Luis E Narayan MD Primary Care Provider Reason for Referral * E-Consultation (Routine) - Closed Specialty Diagnoses / Procedures Referred By Gonzalez kumari Referred To Contact Pharmacy Diagnoses Type 2 diabetes mellitus with hyperglycemia, without long-term current use of insulin Procedures eConsult to [facility] (Primary Care Use Only) Erik Cyr MD [facility] [place] [address] Referral ID Status Reason Start Date Expiration Date Visits Re quested Visits Authorized [id number] Closed 12/04/2020 12/04/2021 1 1 Reason for [...] EDT TH Visit (TeleHealth) Family Medicine at [facility] [address] [address] Erik Cyr MD [facility] [place] [address] Type 2 diabetes mellitus without [...] this encounter Progress Notes * [facility]inda George, [facility] - 12/03/2020 2:00 PM EDT Patient contacted at [phone] Preferred phone: [phone] Patient confirms location for visit as: [place] (not eligible for telehealth visit if outside of [place] & should reschedule when back) Home address: [address] [place] [phone] If phone visit: patient verbally consents to [...] location: Home address [place]: [place] [address] Mode of communication documented under telehealth requirements as appropriate Callback number if video visit: Preferred phone number on file: [phone] CHART REVIEW Made appointment for high blood [...] Diagnosis Code ??? Coronary artery disease involving [place] coronary artery of [place] heart with angina pectoris I25.119 ??? Altered [...] 0 ??? fluticasone propionate (FLONASE) 50 mcg/actuation [place], Suspension 1 spray by Each Nare route [...] minutes 12/10/2020: Received pharmacy e-consult recommendations: Recommend Order Mapper system, which they say is covered by [...] 1:00 PM EST Hospital Encounter [place] [phone] Roland Gooden MD [facility] [place] [address] 08/29/2024 1:00 PM EST - 08/29/2024 2:00 PM EST Surgery [place] [address] Roland Gooden MD [facility] [place] [address] EGD, UPPER GI ENDOSCOPY (WRVU 2.09) 10/02/2024 1:00 PM EDT Office [place] [address] Juanpablo Hernandez MD [facility] [place] [address] 10/21/2024 9:30 AM EDT Office Visit Internal Medicine at [address] [phone] Daryn Garrett MD [facility] [place] [address] 01/30/2025 1:30 PM EDT Laboratory Appointment Lab at [facility] Hematology Oncology [address] [place] [phone] 01/30/2025 3:[address] [place] [phone] Arturo Cordero MD [facility] [place] [address] 01/30/2025 4:15 PM EDT Office Visit Hematology [place] [address] Arturo Cordero MD [facility] [place] [address] Scheduled Procedures Name Priority Associated Diagnoses Date/Ti [...] syndrome documented in this encounter Care Teams Cpa Tax Relationship Specialty Start Date End Date Luis E Narayan MD [facility] [place] [address] PCP - General Family Medicine 03/26/19 01/19/22 documented as of this encounter
--- OUTSIDE RECORDS SUMMARY | 2024-08-20 15:59 | XMS_ITS | Encounter Summary ---
Author Organization [facility] [place] [address] Care Team Providers Care Fire Protection Equipment Technician Name Role Phone Luis E Narayan MD Primary Care Provider Reason for Referral * Diagnostic Test (Routine) - Closed Specialty Diagnoses / Procedures Referred By Contac t Referred To Contact Radiology Diagnoses Malignant melanoma of conjunctiva, left Procedures CT Neck Soft Tissue w Contrast (Generic) Arturo Cordero MD [facility] DR HEMATOLOGY [place] [address] [facility] [place] [address] Referral ID Status Reason Start Date Expiration Date V isits Requested Visits Authorized [id number] Closed Specialty Service Requested 09/15/2020 03/18/2022 1 1 * Diagnostic Test (Routine) - Closed Specialty Diagnoses / Procedures Referred By Contac t Referred To Contact Radiology Diagnoses Malignant melanoma of conjunctiva, left Procedures CT Chest Abdomen Pelvis w Contrast (Generic) Arturo Cordero MD [facility] DR HEMATOLOGY [place] [address] [facility] [place] [address] Referral ID Status Reason Start Date Expiration Date V isits Requested Visits Authorized [id number] Closed Specialty Service Requested 09/15/2020 03/18/2022 1 1 Reason for Visit * Diagnostic Test (Routine) - Closed Specialty Diagnoses / Procedures Referred By Contac t Referred To Contact Radiology Diagnoses Malignant melanoma of conjunctiva, left Procedures CT Chest Abdomen Pelvis w Contrast (Generic) Arturo Cordero MD [facility] DR HEMATOLOGY [place] [address] [facility] [place] [address] Referral ID Status Reason Start Date Expiration Date V isits Requested Visits Authorized [id number] Closed Specialty Service Requested 09/15/2020 03/18/2022 1 1 Encounter Details Date Type Department Care Team (Latest Contact Info) Description 12/17/2020 12:17 PM EDT - 12/17/2020 12:28 PM EDT Hospital [place] [address] Arturo Cordero MD [facility] DR HEMATOLOGY [place] [address] Malignant melanoma of conjunctiva, left [...] mg by mouth daily. FreeStyle Sanjana 2 [place] MiscIndications:diabete s mellitus 1 each by Other [...] 09/15/2020 09/19/2023 fluticasone propionate (FLONASE) 50 mcg/actuation [place], Suspension 1 spray by Each Nare route [...] 1:00 PM EST Hospital Encounter [place] [address] Roland Gooden MD [facility] [place] [address] 08/29/2024 1:00 PM EST - 08/29/2024 2:00 PM EST Surgery Gastroenterology at [address] Roland Gooden MD [facility] [place] [address] EGD, UPPER GI ENDOSCOPY (WRVU 2.09) 10/02/2024 1:00 PM EDT Office Visit Ophthalmology at [place] [phone] Juanpablo Hernandez MD [facility] [place] [address] 10/21/2024 9:30 AM EDT Office Visit Internal Medicine at [address] [phone] Daryn Garrett MD [facility] DR LILI [place] [address] 01/30/2025 1:30 PM EDT Laboratory Appointment Lab at [facility] Hematology Oncology [address] [place], [place] [phone] 01/30/2025 3:[address] Scan at [place] [phone] Arturo Cordero MD [facility] HEMATOLOGY [place] [address] 01/30/2025 4:15 PM EDT Office Visit Hematology and Oncology at [place] [phone] Arturo Cordero MD [facility] [place] [address] Scheduled Procedures Name Priority Associated Diagnoses Date/Ti [...] have questions please contact the health career development coordinator that requested your imaging first. ? Electronically signed by: Clarisa Rajput MD, [facility] ([phone]), at 12/18/2020 9:41 AM Narrative 12/18/2020 9:41 [...] who have questions please contactthe health career development coordinator that requested your imaging first. Electronically signed by: Clarisa Rajput MD, [facility]([phone]), at 12/18/2020 9:41 AM Arturo Cordero MD IM CT ORDERABLES * [...] have questions please contact the health career development coordinator that requested your imaging first. ? Electronically signed by: Juanpablo Chris MD, [facility] ([phone]), at 12/17/2020 4:53 PM Narrative 12/17/2020 4:53 [...] who have questions please contactthe health career development coordinator that requested your imaging first. Arturo [...] mLs documented in this encounter Care Teams Fire Protection Equipment Technician Relationship Specialty Start Date End Date Luis E Narayan MD [facility] [address] [place] [address] PCP - General Family Medicine 03/26/19 01/19/22 documented as of this encounter
--- OUTSIDE RECORDS SUMMARY | 2024-08-20 15:59 | XMS_ITS | Encounter Summary ---
Author Organization [facility] Address [facility] [place] [address] Care Team Providers Care Apartment Manager Name Role Phone Luis E Narayan MD Primary Care Provider Encounter Details Date Type Department Care Team (Late st Contact Info) Description 01/04/2021 Ancillary Procedure Radiology Library at [facility] [place] [address] Luis E Narayan MD [facility] DR LILI [place] [address] Social History Tobacco Use Types Packs/Day Years [...] 1:00 PM EST Hospital Encounter Gastroenterology at [place] [phone] Roland Gooden MD [facility] [place] [address] 08/29/2024 1:00 PM EST - 08/29/2024 2:00 PM EST Surgery [place] [phone] Roland Gooden MD [facility] [place] [address] EGD, UPPER GI ENDOSCOPY (WRVU 2.09) 10/02/2024 1:00 PM EDT Office [place] [phone] Juanpablo Hernandez MD [facility] [place] [address] 10/21/2024 9:30 AM EDT Office Visit Internal Medicine at [facility] [address] [place] [address] Daryn Garrett MD [facility] DR LILI [place] [address] 01/30/2025 1:30 PM EDT Laboratory Appointment Lab at [facility] Hematology Oncology [address] [place] [phone] 01/30/2025 3:[address] [place] [phone] Arturo Cordero MD [facility] [place] [address] 01/30/2025 4:15 PM EDT Office Visit Hematology [place] [phone] Arturo Cordero MD [facility] [place] [address] Scheduled Procedures Name Priority Associated Diagnoses Date/Ti [...] 12:00 AM EDT) Narrative [facility] - 02/15/2021 11:34 AM EDT This exam is auto-finalizing. It's purpose is for storage only. Luis E Narayan MD IMG FILM LIBRARY OR DERABLES [place], [place] documented in this encounter Visit Diagnoses Not on filedocumented in this encounter Care Teams Apartment Manager Relationship Specialty Start Date End Date Luis E Narayan MD [facility] [address] [place] [address] PCP - General Family Medicine 03/26/19 01/19/22 documented as of this encounter
--- OUTSIDE RECORDS SUMMARY | 2024-08-20 15:59 | XMS_ITS | Encounter Summary ---
Author Organization [facility] [place] [address] Care Team Providers Care Technology Risk Intern Name Role Phone Luis E Narayan MD Primary Care Provider Reason for Visit * Reason Comments Eye Problem Malignant melanoma o f conjunctiva, left Encounter Details Date Type Department Care Team (Late st Contact Info) Description 11/06/2020 3:15 PM EDT Office [place] [address] Juanpablo Hernandez MD [facility] [place] [address] Malignant melanoma of conjunctiva, left Social History [...] 1:00 PM EST Hospital Encounter [place] [address] Roland Gooden MD [facility] [place] [address] 08/29/2024 1:00 PM EST - 08/29/2024 2:00 PM EST [place] [address] Roland Gooden MD [facility] [place] [address] EGD, UPPER GI ENDOSCOPY (WRVU 2.09) 10/02/2024 1:00 PM EDT Office [place] [address] Juanpablo Hernandez MD [facility] [place] [address] 10/21/2024 9:30 AM EDT Office Visit Internal Medicine at [place] [address] [place] [address] Daryn Garrett MD [facility] DR LIL[place] [address] 01/30/2025 1:30 PM EDT Laboratory Appointment Lab at [facility] Hematology Oncology [address] [place] [phone] 01/30/2025 3:[address] [place] [phone] Arturo Cordero MD [facility] DR [place] [address] 01/30/2025 4:15 PM EDT Office Visit Hematology [place] [address] Arturo Cordero MD [facility] DR [place] [address] Scheduled Procedures Name Priority Associated Diagnoses Date/Ti me EGD, UPPER GI ENDOSCOPY (WRVU 2.09) Irritable bowel syndrome with constipation 08/29/2024 1:00 PM EST COLONOSCOPY, DIAGNOSTIC (WRVU 3.26) Irritable bowel syndrome with constipation 08/29/2024 1:00 PM EST documented as of this encounter Visit Diagnoses Diagnosis Malignant melanoma of conjunctiva, left Irritable bowel syndrome with constipation Irritable bowel syndrome documented in this encounter Care Teams Technology Risk Intern Relationship Specialty Start Date End Date Luis E Narayan MD [facility] [address] [place] [address] PCP - General Family Medicine 03/26/19 01/19/22 documented as of this encounter
--- OUTSIDE RECORDS SUMMARY | 2024-08-20 15:59 | XMS_ITS | Encounter Summary ---
Author Organization [facility] [place] [address] Care Team Providers Care Credit Relationship Manager Name Role Phone Luis E Narayan MD Primary Care Provider Encounter Details Date Type Department Care Team (Late st Contact Info) Description 10/21/2020 Telephone Internal Medicine at [facility] [address] [place] [phone] Post, Christine Pablo Social History Tobacco Use [...] 10/21/2020 4:18 PM EDT Good Afternoon, Clinical junior legal secretary called patient and left a voicemail to please call back [facility] at [phone]. When patient calls back please assist with scheduling an appointment with Luis E Narayan MD in regards to lab follow-up. Thank you, Christine documented in this encounter Plan of Treatment Upcoming Encounters Date Type Department Care Team (Latest Contact Info) Description 08/29/2024 1:00 PM EST Hospital Encounter [place] [address] Roland Gooden MD [facility] [place] [address] 08/29/2024 1:00 PM EST - 08/29/2024 2:00 PM EST [place] [phone] Roland Gooden MD [facility] [place] [address] EGD, UPPER GI ENDOSCOPY (WRVU 2.09) 10/02/2024 1:00 PM EDT Office Visit Ophthalmology at [place] [phone] Juanpablo Hernandez MD [facility] [place] [address] 10/21/2024 9:30 AM EDT Office Visit Internal Medicine at [address] [phone] Daryn Garrett MD [facility] DR LILI WALKER [place] [address] 01/30/2025 1:30 PM EDT Laboratory Appointment Lab at [facility] Hematology Oncology [address] [place] [phone] 01/30/2025 3:[address] Scan at [place] [phone] Arturo Cordero MD [facility] DR HEMATOLOGY [place] [address] 01/30/2025 4:15 PM EDT Office Visit Hematology [place] [phone] Arturo Cordero MD [facility] DR HEMATOLOGY [place] [address] Scheduled Procedures Name Priority Associated Diagnoses Date/Ti la EGD, UPPER GI ENDOSCOPY (WRVU 2.09) Irritable bowel syndrome with constipation 08/29/2024 1:00 PM EST COLONOSCOPY, DIAGNOSTIC (WRVU 3.26) Irritable bowel syndrome with constipation 08/29/2024 1:00 PM EST documented as of this encounter Visit Diagnoses Not on filedocumented in this encounter Care Teams Credit Relationship Manager Relationship Specialty Start Date End Date Luis E Narayan MD [facility] [place] [address] PCP - General Family Medicine 03/26/19 01/19/22 documented as of this encounter
--- OUTSIDE RECORDS SUMMARY | 2024-08-20 15:59 | XMS_ITS | Encounter Summary ---
Author Organization [place] [address] Care Team Providers Care Bingo Checker Name Role Phone Luis E Narayan MD Primary Care Provider [phone] Reason for Referral * Physical Therapy (Routine) - Closed Specialty Diagnoses / Procedures Referred By Gonzalez kumari Referred To Contact Physical Therapy Diagnoses Degenerative disc disease, lumbar Troy Moscoso PA [facility] DR LILI WALKER-[place] [address] Physical Therapy, [address] [address] Referral ID Status Reason Start Date Expiration Date V isits Requested Visits Authorized [id number] Closed Evaluate and Treat 10/21/2020 04/19/2021 12 12 Reason for Visit * Reason Comments Low Back Pain With Radicular Pain Encounter Details Date Type Department Care Team (Late st Contact Info) Description 10/21/2020 9:20 AM EDT Office Visit Internal Medicine at [facility] [address] [place] [address] Troy Moscoso, PA [facility] DR LILI WALKER-[place] [address] Type 2 diabetes mellitus without long-term current [...] 10/21/2020 9:20 AM EDT PRIMARY CARE AT [facility] [address] [facility] [address] CHIEF COMPLAINT Alize Gramajo is a 59 [...] 0 ??? fluticasone propionate (FLONASE) 50 mcg/actuation [place], Suspension, 1 spray by Each Nare route2 [...] Disp: 90 tablet, Rfl: 3 ??? lancets [facility], Use for twice daily testing, Disp: 100 each, Rfl: 11 ??? blood sugar diagnostic strips Strip, Use as instructed, Disp: 100 each, Rfl: 12 ??? Blood-Glucose Meter [facility], Use twice daily, Disp: 1 each, Rfl: [...] uses inhalerswith good effect ??? Atherosclerosis of [place] coronary artery of [place] heart with angina pectoris 10/09/2007 History [...] NEPHRECTOMY, ROBOTIC ASSIST (WRVU 27.41) performed by Avlia Medina MD at [facility] MAIN OR ??? PRO PLACE AMNIOTIC MEMBRANE OCULAR SURFACE;SINGLE LAYER SUTURED Left 05/14/2020 PLACEMENT OF AMNIOTIC MEMBRANE ON THE OCULAR SURFACE,SINGLE LAYER,SUTURED (WRVU 2.5) performed by Juanpablo Hernandez MD at [facility] OSC FAMILY HISTORY Family History [...] QTC Calculated (Bezet) 435 ms Calculated P [place] 53 degrees Calculated R [place] 3 degrees Calculated T [place] 54 degrees INTERPRETATION Normal sinus rhythm Normal ECG When compared with ECG of 14-FEB-2019 22:28, Aberrant conduction is no longer Present Confirmed by Radha Lawrence ([id number]) on 09/11/2020 7:23:38 PM PHYSICAL EXAM Gen: [...] in these patients send serum separator tube ([facility]) for subsequent determinations. Contact the [...] ischemia ?? New or presumed new significant EF-[id number]-R wave (ST-T) changes or new left bundle [...] additional sample may be indicated. Reference: Third Carson Definition of Myocardial Infarction. Journal of the [place] [employer] 2012;60:1581-98 ??? Ventricular rate 09/11/2020 75 BPM Final ??? Atrial Rate 09/11/2020 75 BPM Final ??? P-R Interval 09/11/2020 170 ms Final ??? QRS Duration 09/11/2020 92 ms Final ??? Q-T Interval 09/11/2020 390 ms Final ??? QTC Calculated (Bezet) 09/11/2020 435 ms Final ??? Calculated P [place] 09/11/2020 53 degrees Final ??? Calculated R [place] 09/11/2020 3 degrees Final ??? Calculated T [place] 09/11/2020 54 degrees Final ??? INTERPRETATION 09/11/2020 Final Value:Normal sinus rhythm Normal ECG When compared with ECG of 14-FEB-2019 22:28, Aberrant conduction is no longer Present Confirmed by Radha Lawrence ([id number]) on 09/11/2020 7:23:38 PM ??? WBC 09/11/2020 [...] Diagnosis Code ??? Coronary artery disease involving [place] coronary artery of [place] heart with angina pectoris I25.119 ??? Altered [...] 1:00 PM EST Hospital Encounter [place] [address] Roland Gooden MD [facility] [place] [address] 08/29/2024 1:00 PM EST - 08/29/2024 2:00 PM EST Surgery Gastroenterology at [place] [phone] Roland Gooden MD [facility] [place] [address] EGD, UPPER GI ENDOSCOPY (WRVU 2.09) 10/02/2024 1:00 PM EDT Office Visit Ophthalmology at [place] [phone] Juanpablo Hernandez MD [facility] [place] [address] 10/21/2024 9:30 AM EDT Office Visit Internal Medicine at [address] [phone] Daryn Garrett MD [facility] DR LILI WALKER - [place] [address] 01/30/2025 1:30 PM EDT Laboratory Appointment Lab at [facility] Hematology Oncology [address] [place], [place] [phone] 01/30/2025 3:[address] Scan at [place] [phone] Arturo Cordero MD [facility] HEMATOLOGY [place] [address] 01/30/2025 4:15 PM EDT Office Visit Hematology [place] [address] Artruo Cordero MD [facility] HEMATOLOGY [place] [address] Scheduled Procedures Name Priority Associated Diagnoses Date/Ti [...] Mellitus, Diabetes Care 2013; 36: Suppl. 1, P87-46 Estimated Average Glucose 177 mg/dL [facility] Comment: eAG [...] available on the ADA website. Yahir GRADY, Benradette J, Tahira R, et al. ??Translating the A1C assay into estimated average glucose values. ??Diabetes Care 2008:31(8):6331-4711. Blood specimen (specimen) 10/21/2020 10:20 AM EDT 10/21/2020 1:48 PM EDT Narrative Resulting Agency Comment Spec In Lab M Noreen Maxwell MD CHEMISTRY ORDERABLES [facility] [place] [address] documented in this encounter Visit Diagnoses Diagnosis Type 2 diabetes mellitus without long-term current use of insulin Degenerative disc disease, lumbar Degeneration of lumbar or lumbosacral intervertebral disc BPPV (benign paroxysmal positional vertigo), right Irritable bowel syndrome with constipation Irritable bowel syndrome documented in this encounter Care Teams Bingo Checker Relationship Specialty Start Date End Date Luis E Narayan MD [facility] DR LILI WALKER[place] [address] PCP - General Family Medicine 03/26/19 01/19/22 documented as of this encounter
--- OUTSIDE RECORDS SUMMARY | 2024-08-20 15:59 | XMS_ITS | Encounter Summary ---
Author Organization [facility] [place] [address] Care Team Providers Care Hand Candy Dipper Name Role Phone Luis E Narayan MD Primary Care Provider [phone]- [phone] Encounter Details Date Type Department Care Team (Latest Contact Info) Description 12/17/2020 12:29 PM EDT - 12/17/2020 11:59 PM EDT Hospital Encounter [place] [address] Malignant melanoma of conjunctiva, left Discharge Disposition: [...] mg by mouth daily. FreeStyle Sanjana 2 [place] MiscIndications:diabete s mellitus 1 each by Other [...] 09/15/2020 09/19/2023 fluticasone propionate (FLONASE) 50 mcg/actuation [place], Suspension 1 spray by Each Nare route [...] 1:00 PM EST Hospital [place] [address] Roland Gooden MD [facility] [place] [address] 08/29/2024 1:00 PM EST - 08/29/2024 2:00 PM EST [place] [phone] Roland Gooden MD [facility] [place] [address] EGD, UPPER GI ENDOSCOPY (WRVU 2.09) 10/02/2024 1:00 PM EDT Office Visit Ophthalmology at [place] [phone] Juanpablo Hernandez MD [facility] [place] [address] 10/21/2024 9:30 AM EDT Office Visit Internal Medicine at [address] [phone] Daryn Garrett MD [facility] [place] [place] [address] 01/30/2025 1:30 PM EDT Laboratory Appointment Lab at [facility] Hematology Oncology [address] [place] [phone] 01/30/2025 3:[address] Scan at [place] [phone] Arturo Cordero MD [facility] DR [place] [address] 01/30/2025 4:15 PM EDT Office Visit [place] [address] Arturo Cordero MD [facility] DR [place] [address] Scheduled Orders Name Type Priority Associated Diagnoses [...] (12/17/2020 12:45 PM EDT) Plat estimate Normal [facility] RBC Morphology Normal [facility] Blood 12/17/2020 12:4 5 PM EDT 12/17/2020 12:51 PM EDT Narrative Resulting Agency Comment Spec In Lab Arturo Cordero MD HEMATOLOGY ORDERABLE S [facility] [place] [address] * Differential, Automated (12/17/2020 12:45 PM EDT) Pathologist [facility] Neutrophil % 58.0 % [facility] Neutrophil Absolute 3.91 1.70 - 6.10 x10(3)/[facility] Lymph % 29.9 % [facility] Lymphocytes Abs 2.0 0.9 - 3.2 x10(3)/[facility] Monocyte % 9.2 % [facility] Monocyte Abs 0.6 0.3 - 0.9 x10(3)/[facility] Eos % 1.9 % [facility] Eosinophils Abs 0.1 0.0 - 0.4 x10(3)/[facility] Basophil % 0.9 % [facility] Baso Absolute 0.1 0.0 - 0.1 x10(3)/[facility] Immature Gran % 0.10 % [facility] Comment: Immature granulocytes(IG's)percentage and absolute count will include metamyelocytes, myelocytes, and promyelocytes. Blood smears from CBCs yielding IG's will be scanned manually for concordance. If this scan disagrees with the automated IG or if promyelocytes are noted, a manual differential will be performed. Immature Gran Absolute 0.01 0.00 - 0.04 x10(3)/[facility] Blood 12/17/2020 12:4 5 PM EDT 12/17/2020 12:51 PM EDT Narrative Resulting Agency Comment Spec In Lab Arturo Cordero MD HEMATOLOGY ORDERABLE S [facility] [place] [address] * (ABNORMAL) Hemogram (12/17/2020 12:45 PM EDT) Pathologist [facility] White Blood Cell 6.8 4.0 - 9.5 x10(3)/[facility] Red Blood Cell 4.44 4.00 - 5.21 x10(6)/mc L [facility] NRBC% auto 0.0 % [facility] NRBC Absolute 0.000 0.000 - 0.000 x10(3)/mc L [facility] Blood 12/17/2020 12:4 5 PM EDT 12/17/2020 12:51 PM EDT Narrative Resulting Agency Comment Spec In Lab Arturo Cordero MD HEMATOLOGY ORDERABLE S [facility] [place] [address] * (ABNORMAL) Comprehensive metabolic panel (non-fasting) (12/17/2020 [...] CHEMISTRY ORDERABLES [facility] [place] [address] * Lactate Dehydrogenase (12/17/2020 12:45 PM EDT) Lactate Dehydrogenase 205 110 - 220 unit/L [facility] Blood 12/17/2020 12:4 5 PM EDT 12/17/2020 12:51 PM EDT Narrative Resulting Agency Comment Spec In Lab Arturo Cordero MD CHEMISTRY ORDERABLES [facility] [place] [address] documented in this encounter Visit Diagnoses Diagnosis Malignant melanoma of conjunctiva, left Irritable bowel syndrome with constipation Irritable bowel syndrome documented in this encounter Care Teams Hand Candy Dipper Relationship Specialty Start Date End Date Luis E Narayan MD [facility] [address] [place] [address] PCP - General Family Medicine 03/26/19 01/19/22 documented as of this encounter
--- OUTSIDE RECORDS SUMMARY | 2024-08-20 15:59 | XMS_ITS | Encounter Summary ---
Author Organization [facility] Address [facility] [place] [address] Care Team Providers Care Anesthesiology Medical Doctor Name Role Phone Luis E Narayan MD Primary Care Provider [phone]- [phone] Reason for Visit * Reason Comments Follow-up Encounter Details Date Type Department Care Team (Late st Contact Info) Description 09/15/2020 1:30 PM EST Office Visit Internal Medicine at [facility] [address] [place] [address] Alejandra Corey MD Acute URI; Acute non-recurrent maxillary sinusitis; Constipation, [...] turn your head so that it is custodial between looking straight ahead and looking to [...] Where can you learn more? Visit our [employer] information library at [email or web address] You can also view health information on [employer], your personal patient account. Log in or sign uptoday. Enter A855 in the search box to learn more about Jose L Maneuver for Vertigo: Exercises. Current as of: October 23, 2019?Content Version: 12.7 ?? [id number] [employer]. Care instructions adapted under license by [facility]. If you have questions about a medical condition or this instruction, always ask your healthcare professional. [employer] disclaims any warranty or liability for your [...] Where can you learn more? Visit our [employer] information library at [email or web address] You can also view health information on [employer], your personal patient account. Log in or sign uptoday. Enter P372 in the search box to learn more about Benign Paroxysmal Positional Vertigo (BPPV): CareInstructions. Current as of: October 23, 2019?Content Version: 12.7 ?? [id number] [employer]. Care instructions adapted under license by [facility]. If you have questions about a medical condition or this instruction, always ask your healthcare professional. [employer] disclaims any warranty or liability for your [...] to be positional, most concerning for vertigo. Monette-Hallpike was negative for nystagmus, but did perform [...] 1:00 PM EST Hospital Encounter Gastroenterology at [place] [phone] Roland Gooden MD [facility] [place] [address] 08/29/2024 1:00 PM EST - 08/29/2024 2:00 PM EST Surgery [place] [phone] Roland Gooden MD [facility] [place] [address] EGD, UPPER GI ENDOSCOPY (WRVU 2.09) 10/02/2024 1:00 PM EDT Office Visit [place] [phone] Juanpablo Hernandez MD [facility] [place] [address] 10/21/2024 9:30 AM EDT Office Visit Internal Medicine at [facility] [address] [place] [phone] Daryn Garrett MD [facility] DR LILI [place]EV[place]O [place] [address] 01/30/2025 1:30 PM EDT Laboratory Appointment Lab at [facility] Hematology Oncology [address] [place] [phone] 01/30/2025 3:[address] [place] [phone] Arturo Cordero MD [facility] DR [place] [address] 01/30/2025 4:15 PM EDT Office Visit Hematology [place] [phone] Arturo Cordero MD [facility] DR [place] [address] Scheduled Procedures Name Priority Associated Diagnoses Date/Ti me EGD, UPPER GI ENDOSCOPY (WRVU 2.09) Irritable bowel syndrome with constipation 08/29/2024 1:00 PM EST COLONOSCOPY, DIAGNOSTIC (WRVU 3.26) Irritable bowel syndrome with constipation 08/29/2024 1:00 PM EST documented as of this encounter Visit Diagnoses Diagnosis Acute URI Acute upper respiratory infections of unspecified site Acute non-recurrent maxillary sinusitis Constipation, unspecified constipation type Irritable bowel syndrome with constipation Irritable bowel syndrome documented in this encounter Care Teams Anesthesiology Medical Doctor Relationship Specialty Start Date End Date Luis E Narayan MD [facility] DR LILI AZEVED[place] [address] PCP - General Family Medicine 03/26/19 01/19/22 documented as of this encounter
--- OUTSIDE RECORDS SUMMARY | 2024-08-20 15:59 | XMS_ITS | Encounter Summary ---
Author Organization [facility] Address [facility] [place] [address] Care Team Providers Care Instructional Technologist Name Role Phone Luis E Narayan MD Primary Care Provider [phone] Reason for Visit * Reason Comments Tearing Encounter Details Date Type Department Care Team (Late st Contact Info) Description 09/15/2020 12:15 PM EST Office [place] [address] Marco Antonio Godwin MD [facility] [place] [address] Malignant melanoma of conjunctiva, left Social History [...] 1:00 PM EST Hospital Encounter [place] [address] Roland Gooden MD [facility] [place] [address] 08/29/2024 1:00 PM EST - 08/29/2024 2:00 PM EST Surgery Gastroenterology at [place] [phone] Roland Gooden MD [facility] [place] [address] EGD, UPPER GI ENDOSCOPY (WRVU 2.09) 10/02/2024 1:00 PM EDT Office [place] [phone] Juanpablo Hernandez MD [facility] [place] [address] 10/21/2024 9:30 AM EDT Office Visit Internal Medicine at [address] [phone] Daryn Garrett MD [facility] DR LILI [place] [address] 01/30/2025 1:30 PM EDT Laboratory Appointment Lab at [facility] Hematology Oncology [address] [place] [phone] 01/30/2025 3:[address] [place] [address] Arturo Cordero MD [facility] [place] [address] 01/30/2025 4:15 PM EDT Office Visit Hematology [place] [address] Arturo Cordero MD [facility] [place] [address] Scheduled Procedures Name Priority Associated Diagnoses Date/Ti me EGD, UPPER GI ENDOSCOPY (WRVU 2.09) Irritable bowel syndrome with constipation 08/29/2024 1:00 PM EST COLONOSCOPY, DIAGNOSTIC (WRVU 3.26) Irritable bowel syndrome with constipation 08/29/2024 1:00 PM EST documented as of this encounter Visit Diagnoses Diagnosis Malignant melanoma of conjunctiva, left Irritable bowel syndrome with constipation Irritable bowel syndrome documented in this encounter Care Teams Instructional Technologist Relationship Specialty Start Date End Date Luis E Narayan MD [facility] [address] [place] [address] PCP - General Family Medicine 03/26/19 01/19/22 documented as of this encounter
--- OUTSIDE RECORDS SUMMARY | 2024-08-20 15:59 | XMS_ITS | Encounter Summary ---
Author Organization [facility] Address [facility] [place] [address] Care Team Providers Care Clinical Psychologist Licensed Name Role Phone Luis E Narayan MD Primary Care Provider [phone]- [phone] Reason for Visit * Reason Onset Date Comments Medication Refill 10/30/2020 Encounter Details Date Type Department Care Team (Late st Contact Info) Description 10/30/2020 Refill Internal Medicine at [facility] [address] [place] [address] Troy Moscoso PA [facility] DR LILI WALKER[place] [address] Chronic bilateral low back pain without sciatica [...] 1:00 PM EST Hospital Encounter [place] [phone] Roland Gooden MD [facility] [place] [address] 08/29/2024 1:00 PM EST - 08/29/2024 2:00 PM EST Surgery [place] [phone] Roland Gooden MD [facility] [place] [address] EGD, UPPER GI ENDOSCOPY (WRVU 2.09) 10/02/2024 1:00 PM EDT Office Visit [place] [phone] Juanpablo Hernandez MD [facility] [place] [address] 10/21/2024 9:30 AM EDT Office Visit Internal Medicine at [address] [phone] Daryn Garrett MD [facility] DR LILI WALKER - PRIMARY CARE [place], [place] [phone] 01/30/2025 1:30 PM EDT Laboratory Appointment Lab at [facility] Hematology Oncology [address] [place] [phone] 01/30/2025 3:[address] [place] [address] Arturo Cordero MD [facility] [place] [address] 01/30/2025 4:15 PM EDT Office Visit Hematology [place] [address] Arturo Cordero MD [facility] [place] [address] Scheduled Procedures Name Priority Associated Diagnoses Date/Ti [...] syndrome documented in this encounter Care Teams Clinical Psychologist Licensed Relationship Specialty Start Date End Date Luis E Narayan MD [facility] DR LILI W[place] [address] PCP - General Family Medicine 03/26/19 01/19/22 documented as of this encounter
--- OUTSIDE RECORDS SUMMARY | 2024-08-20 15:59 | XMS_ITS | Encounter Summary ---
[place] [address] Care Team Providers Care Plastics And Composites Inspector Name Role Phone Luis E Narayan MD Primary Care Provider Encounter Details Date Type Department Care Team (Late st Contact Info) Description 10/07/2020 Telephone [place] [phone] Malika Ye Social History Tobacco Use Types [...] 1:00 PM EST Hospital Encounter [place] [address] Roland Gooden MD [facility] [place] [address] 08/29/2024 1:00 PM EST - 08/29/2024 2:00 PM EST Surgery [place] [phone] Roland Gooden MD [facility] [place] [address] EGD, UPPER GI ENDOSCOPY (WRVU 2.09) 10/02/2024 1:00 PM EDT Office [place] [phone] Juanpablo Hernandez MD [facility] [place] [address] 10/21/2024 9:30 AM EDT Office Visit Internal Medicine at [address] [phone] Daryn Garrett MD [facility] [place] [address] 01/30/2025 1:30 PM EDT Laboratory Appointment Lab at [facility] Hematology Oncology [address] [place] [phone] 01/30/2025 3:[address] [place] [address] Arturo Cordero MD [facility] [place] [address] 01/30/2025 4:15 PM EDT Office Visit Hematology [place] [phone] Arturo Cordero MD [facility] HEMATOLOGY AND ONCOLOGY [place], [place] [phone] Scheduled Procedures Name Priority Associated Diagnoses Date/Ti me EGD, UPPER GI ENDOSCOPY (WRVU 2.09) Irritable bowel syndrome with constipation 08/29/2024 1:00 PM EST COLONOSCOPY, DIAGNOSTIC (WRVU 3.26) Irritable bowel syndrome with constipation 08/29/2024 1:00 PM EST documented as of this encounter Visit Diagnoses Not on filedocumented in this encounter Care Teams Plastics And Composites Inspector Relationship Specialty Start Date End Date Luis E Narayan MD [facility] DR LILI [place] [address] PCP - General Family Medicine 03/26/19 01/19/22 documented as of this encounter
--- OUTSIDE RECORDS SUMMARY | 2024-08-20 15:59 | XMS_ITS | Encounter Summary ---
Author Organization [facility] [place] [address] Care Team Providers Care Fuller Brush Worker Name Role Phone Luis E Narayan MD Primary Care Provider [phone]- [phone] Reason for Visit * Reason Onset Date Comments Appointment 01/25/2021 Encounter Details Date Type Department Care Team (Late st Contact Info) Description 01/25/2021 [place] [address] Juanpablo Hernandez MD [facility] [place] [address] Appointment Social History Tobacco Use Types Packs/Day [...] Contact Info) Description 08/29/2024 1:00 PM [facility] Hospital Encounter Gastroenterology at [place] [phone] Roland Gooden MD [facility] [place] [address] 08/29/2024 1:00 PM EST - 08/29/2024 2:00 PM EST Surgery Gastroenterology at [place] [phone] Roland Gooden MD [facility] [place] [address] EGD, UPPER GI ENDOSCOPY (WRVU 2.09) 10/02/2024 1:00 PM EDT Office Visit Ophthalmology at [place] [phone] Juanpablo Hernandez MD [facility] [place] [address] 10/21/2024 9:30 AM EDT Office Visit Internal Medicine at [address] [phone] Daryn Garrett MD [facility] DR L[place] [address] 01/30/2025 1:30 PM EDT Laboratory Appointment Lab at [facility] Hematology Oncology [address] [place] [phone] 01/30/2025 3:[address] Scan at [place] [phone] Arturo Cordero MD [facility] [place] [address] 01/30/2025 4:15 PM EDT Office Visit [place] [phone] Arturo Cordero MD [facility] [place] [address] Scheduled Procedures Name Priority Associated Diagnoses Date/Ti me EGD, UPPER GI ENDOSCOPY (WRVU 2.09) Irritable bowel syndrome with constipation 08/29/2024 1:00 PM EST COLONOSCOPY, DIAGNOSTIC (WRVU 3.26) Irritable bowel syndrome with constipation 08/29/2024 1:00 PM EST documented as of this encounter Visit Diagnoses Not on filedocumented in this encounter Care Teams Fuller Brush Worker Relationship Specialty Start Date End Date Luis E Narayan MD [facility] [address] [place] [address] PCP - General Family Medicine 03/26/19 01/19/22 documented as of this encounter
--- OUTSIDE RECORDS SUMMARY | 2024-08-20 15:59 | XMS_ITS | Encounter Summary ---
Author Organization [facility] Address [facility] [place] [address] Care Team Providers Care Director Of Consumer Affairs Name Role Phone Luis E Narayan MD Primary Care Provider Reason for Visit * Reason Comments Melanoma Encounter Details Date Type Department Care Team (Late st Contact Info) Description 01/20/2021 12:45 PM EDT Office [place] [address] Juanpablo Hernandez MD [facility] [place] [address] Malignant melanoma of conjunctiva, left Social History [...] Hospital Encounter [place] [address] Roland Gooden MD [facility] [place] [address] 08/29/2024 1:00 PM EST - 08/29/2024 2:00 PM EST Surgery [place] [phone] Roland Gooden MD [facility] [place] [address] EGD, UPPER GI ENDOSCOPY (WRVU 2.09) 10/02/2024 1:00 PM EDT Office [place] [phone] Juanpablo Hernandez MD [facility] [address] 10/21/2024 9:30 AM EDT Office Visit Internal Medicine at [address] [place] [phone] Daryn Garrett MD [facility] DR LILI [place] [address] 01/30/2025 1:30 PM EDT Laboratory Appointment Lab at [facility] Hematology Oncology [address] [place] [phone] 01/30/2025 3:[address] [place] [phone] Arturo Cordero MD [facility] DR [place] [address] 01/30/2025 4:15 PM EDT Office Visit Hematology [place] [phone] Arturo Cordero MD [facility] DR [place] [address] Scheduled Procedures Name Priority Associated Diagnoses Date/Ti [...] in this encounter Care Teams Director Of Consumer Affairs Relationship Specialty Start Date End Date Luis E Narayan MD [facility] DR LILI [place] [address] PCP - General Family Medicine 03/26/19 01/19/22 documented as of this encounter
--- OUTSIDE RECORDS SUMMARY | 2024-08-20 15:59 | XMS_ITS | Encounter Summary ---
Author Organization [facility] Address [facility] [place] [address] Care Team Providers Care Hydraulic Punch Press Operator Name Role Phone Luis E Narayan MD Primary Care Provider +1- [phone] Reason for Visit * Reason Onset Date Comments Medication Refill 01/07/2021 Encounter Details Date Type Department Care Team (Late st Contact Info) Description 01/07/2021 Refill Family Medicine at [facility] [address] [place] [address] Luis E Narayan MD [facility] [address] LILI WALKER-[place] [address] Type 2 diabetes mellitus without long-term current [...] EST Hospital [place] [address] Roland Gooden MD [facility] [place] [address] 08/29/2024 1:00 PM EST - 08/29/2024 2:00 PM EST [place] [address] Roland Gooden MD [facility] [place] [address] EGD, UPPER GI ENDOSCOPY (WRVU 2.09) 10/02/2024 1:00 PM EDT Office [place] [address] Juanpablo Hernandez MD [facility] [place] [address] 10/21/2024 9:30 AM EDT Office Visit Internal Medicine at [address] [phone] Daryn Garrett MD [facility] [address] LILI WALKER [place] [address] 01/30/2025 1:30 PM EDT Laboratory Appointment Lab at [facility] Hematology Oncology [address] [place] [phone] 01/30/2025 3:[address] [place] [place] [phone] Arturo Cordero MD [facility] [address] HEMATOLOGY [place] [address] 01/30/2025 4:15 PM EDT Office Visit [place] [phone] Arturo Cordero MD [facility] [address] HEMATOLOGY [place] [address] Scheduled Procedures Name Priority Associated Diagnoses Date/Ti [...] documented in this encounter Care Teams Hydraulic Punch Press Operator Relationship Specialty Start Date End Date Luis E Narayan MD [facility] [address]-[place] [address] PCP - General Family Medicine 03/26/19 01/19/22 documented as of this encounter
--- OUTSIDE RECORDS SUMMARY | 2024-08-20 15:59 | XMS_ITS | Encounter Summary ---
Author Organization [facility] [place] [address] Care Team Providers Care General Teller Name Role Phone Luis E Narayan MD Primary Care Provider +1- [phone] Reason for Visit * Reason Onset Date Comments Other 12/04/2020 Encounter Details Date Type Department Care Team (Late st Contact Info) Description 12/04/2020 Telephone Family Medicine at [facility] [address] [place] [address] Stoner, October L Other Social History Tobacco [...] line. Letter sent. * Telephone Encounter - Alejanrda Posadas RN - 12/10/2020 11:31 AM EDT Called [phone]. Left voicemail asking for patient to call back. Refer to [facility] on 12/05. Was read on 12/06. * Telephone Encounter - Layen October Samy - 12/04/2020 4:41 PM EDT Message: Israel states that Dr. Cyr said she would call her today after talking with Dr. Narayan . Please call back to discuss Ask caller their first and last name and relationship to the patient: self Best time to call back: any Ok to leave a message: y Ok to send my- message: = Offered Appointment: MA/Nurse/[place] contacted via: Message: y Call: n Pager: n documented in this encounter Plan of Treatment Upcoming Encounters Date Type Department Care Team (Latest Contact Info) Description 08/29/2024 1:00 PM EST Hospital Encounter Gastroenterology at [place] [phone] Roland Gooden MD [facility] [place] [address] 08/29/2024 1:00 PM EST - 08/29/2024 2:00 PM EST Surgery Gastroenterology at [place] [phone] Roland Gooden MD [facility] [place] [address] EGD, UPPER GI ENDOSCOPY (WRVU 2.09) 10/02/2024 1:00 PM EDT Office [place] [address] Juanpablo Hernandez MD [facility] [place] [address] 10/21/2024 9:30 AM EDT Office Visit Internal Medicine at [address] [phone] Daryn Garrett MD [facility] DR LILI WALKER - PRIMARY CARE [place], [place] [phone] 01/30/2025 1:30 PM EDT Laboratory Appointment Lab at [facility] Hematology Oncology [address] [place] [phone] 01/30/2025 3:[address] [place] [address] Arturo Cordero MD [facility] [place] [address] 01/30/2025 4:15 PM EDT Office Visit Hematology and Oncology at [facility] [place] [place] [address] Arturo Cordero MD [facility] [place] [address] Scheduled Procedures Name Priority Associated Diagnoses Date/Ti me EGD, UPPER GI ENDOSCOPY (WRVU 2.09) Irritable bowel syndrome with constipation 08/29/2024 1:00 PM EST COLONOSCOPY, DIAGNOSTIC (WRVU 3.26) Irritable bowel syndrome with constipation 08/29/2024 1:00 PM EST documented as of this encounter Visit Diagnoses Not on filedocumented in this encounter Care Teams General Teller Relationship Specialty Start Date End Date Luis E Narayan MD [facility] [address] [place] [address] PCP - General Family Medicine 03/26/19 01/19/22 documented as of this encounter
--- OUTSIDE RECORDS SUMMARY | 2024-08-20 16:00 | XMS_ITS | Encounter Summary ---
Author Organization [facility] Address [facility] [place] [address] Care Team Providers Care Liquor Clerk Name Role Phone Luis E Narayan MD Primary Care Provider +1- [phone] Reason for Visit * Reason Onset Date Comments Other 08/21/2020 Encounter Details Date Type Department Care Team (Late st Contact Info) Description 08/21/2020 Telephone Family Medicine at [facility] [address] [place] [address] Deana Akers Other Social History Tobacco Use [...] regarding copies of test results. Patient states [facility] staff is faxing over these results to the office today . FYI. Ask caller their first and last name and relationship to the patient: self Best time to call back: anytime Ok to leave a message: y Ok to send - message: n Offered Appointment: n BARBIE/Nurse/[place] contacted via: Message: y Call: n Pager: n documented in this encounter Plan of Treatment Upcoming Encounters Date Type Department Care Team (Latest Contact Info) Description 08/29/2024 1:00 PM EST Hospital En[place] [address] Roland Gooden MD [facility] [place] [address] 08/29/2024 1:00 PM EST - 08/29/2024 2:00 PM EST [place] [phone] Roland Gooden MD [facility] [place] [address] EGD, UPPER GI ENDOSCOPY (WRVU 2.09) 10/02/2024 1:00 PM EDT [place] [address] Juanpablo Hernandez MD [facility] [place] [address] 10/21/2024 9:30 AM EDT Office Visit Internal Medicine at [address] [phone] Daryn Garrett MD [facility] DR LILI [place] [address] 01/30/2025 1:30 PM EDT Laboratory Appointment Lab at [facility] Hematology Oncology [address] [place] [phone] 01/30/2025 3:[address] [place] [place] [address] Arturo Cordero MD [facility] [place] [address] 01/30/2025 4:15 PM EDT Office Visit [place]ology [place] [address] Arturo Cordero MD [facility] [address] [place] [address] Scheduled Procedures Name Priority Associated Diagnoses Date/Ti me EGD, UPPER GI ENDOSCOPY (WRVU 2.09) Irritable bowel syndrome with constipation 08/29/2024 1:00 PM EST COLONOSCOPY, DIAGNOSTIC (WRVU 3.26) Irritable bowel syndrome with constipation 08/29/2024 1:00 PM EST documented as of this encounter Visit Diagnoses Not on filedocumented in this encounter Care Teams Liquor Clerk Relationship Specialty Start Date End Date Luis E Narayan MD [facility] [address] [place] [address] PCP - General Family Medicine 03/26/19 01/19/22 documented as of this encounter
--- OUTSIDE RECORDS SUMMARY | 2024-08-20 16:00 | XMS_ITS | Encounter Summary ---
Author Organization [facility] [address] Care Team Providers Care Supervisor Of Operations Name Role Phone Luis E Narayan MD Primary Care Provider [phone] Encounter Details Date Type Department Care Team (Latest Contact Info) Description 07/22/2020 10:04 AM EST - 07/22/2020 11:59 PM [facility] Hospital Encounter Mammography/[place] [address] Luis E Narayan MD [facility] [address] LILI [place] [address] Encounter for screening mammogram for breast cancer [...] 08/05/2019 06/14/2021 fluticasone propionate (FLONASE) 50 mcg/actuation Tell, Suspension 1 spray by Each Nare route [...] 1:00 PM EST Hospital Encounter [place] [address] Roland Gooden MD [facility] [place] [address] 08/29/2024 1:00 PM EST - 08/29/2024 2:00 PM EST Surgery [place] [phone] Roland Gooden MD [facility] [address] EGD, UPPER GI ENDOSCOPY (WRVU 2.09) 10/02/2024 1:00 PM EDT Office [place] [address] Juanpablo Hernandez MD [facility] [place] [address] 10/21/2024 9:30 AM EDT Office Visit Internal Medicine at [facility] [address] [place] [phone] Daryn Garrett MD [facility] [address] [place] [address] 01/30/2025 1:30 PM EDT Laboratory Appointment Lab at [facility] Hematology Oncology [address] [place] [phone] 01/30/2025 3:[address] [place] [phone] Arturo Cordero MD [facility] [place] [address] 01/30/2025 4:15 PM EDT Office Visit Hematology [place] [phone] Arturo Cordero MD [facility] [place] [address] Scheduled Procedures Name Priority Associated Diagnoses Date/Ti [...] documented in this encounter Care Teams Supervisor Of Operations Relationship Specialty Start Date End Date Luis E Narayan MD [facility] [place] [address] PCP - General Family Medicine 03/26/19 01/19/22 documented as of this encounter
--- OUTSIDE RECORDS SUMMARY | 2024-08-20 16:00 | XMS_ITS | Encounter Summary ---
Author Organization [facility] [place] [address] Care Team Providers Care Cardiac Cath Rn Name Role Phone Luis E Narayan MD Primary Care Provider Encounter Details Date Type Department Care Team (Late st Contact Info) Description 09/11/2020 Telephone Family Medicine at [facility] [address] [place] [phone] Shannon Ward, RN Social History Tobacco Use [...] 1:00 PM EST Hospital Encounter Gastroenterology at [place] [phone] Roland Gooden MD [facility] [place] [place] [address] 08/29/2024 1:00 PM EST - 08/29/2024 2:00 PM EST [place] [phone] Roland Gooden MD [facility] [address] EGD, UPPER GI ENDOSCOPY (WRVU 2.09) 10/02/2024 1:00 PM EDT Office [place] [phone] Juanpablo Hernandez MD [facility] [place] [address] 10/21/2024 9:30 AM EDT Office Visit Internal Medicine at [facility] [address] [place] [address] Daryn Garrett MD [facility] DR LILI [place] [address] 01/30/2025 1:30 PM EDT Laboratory Appointment Lab at [facility] Hematology Oncology [address] [place] [phone] 01/30/2025 3:[address] [place] [phone] Arturo Cordero MD [facility] [place] [address] 01/30/2025 4:15 PM EDT Office Visit Hematology [place] [phone] Arturo Cordero MD [facility] DR [place] [address] Scheduled Procedures Name Priority Associated Diagnoses Date/Ti me EGD, UPPER GI ENDOSCOPY (WRVU 2.09) Irritable bowel syndrome with constipation 08/29/2024 1:00 PM EST COLONOSCOPY, DIAGNOSTIC (WRVU 3.26) Irritable bowel syndrome with constipation 08/29/2024 1:00 PM EST documented as of this encounter Visit Diagnoses Not on filedocumented in this encounter Care Teams Cardiac Cath Rn Relationship Specialty Start Date End Date Luis E Narayan MD [facility] DR LILI [place] [address] PCP - General Family Medicine 03/26/19 01/19/22 documented as of this encounter
--- OUTSIDE RECORDS SUMMARY | 2024-08-20 16:00 | XMS_ITS | Encounter Summary ---
[place] [address] Care Team Providers Care Motorcycle Engine Assembler Name Role Phone Luis E Narayan MD Primary Care Provider +1- [phone] Encounter Details Date Type Department Care Team (Late st Contact Info) Description 08/17/2020 Telephone Cardiology at [address] [phone] Anthony Barbosa MD Social History Tobacco Use Types Packs/Day [...] PM Referring Provider: Cindy CARLIN Patient Location: [facility] Presenting Symptoms per OSH: 59F with [...] Lower concern for an active plaque rupture [place]. - Recommended to trend trops and assess [...] EST Hospital Encounter Gastroenterology at [place] [phone] Roland Gooden MD [facility] [address] 08/29/2024 1:00 PM EST - 08/29/2024 2:00 PM EST Surgery Gastroenterology at [place] [phone] Roland Gooden MD [facility] [address] EGD, UPPER GI ENDOSCOPY (WRVU 2.09) 10/02/2024 1:00 PM EDT Office Visit Ophthalmology at [place] [phone] Juanpablo Hernandez MD [facility] [place] [address] 10/21/2024 9:30 AM EDT Office Visit Internal Medicine at [address] [phone] Daryn Garrett MD [facility] DR LIL[place] [address] 01/30/2025 1:30 PM EDT Laboratory Appointment Lab at [facility] Hematology Oncology [address] [place], [place] [phone] 01/30/2025 3:[address] [place] [address] Arturo Cordero MD [facility] [place] [address] 01/30/2025 4:15 PM EDT Office Visit Hematology and Oncology at [place] [phone] Arturo Cordero MD [facility] [place] [address] Scheduled Procedures Name Priority Associated Diagnoses Date/Ti me EGD, UPPER GI ENDOSCOPY (WRVU 2.09) Irritable bowel syndrome with constipation 08/29/2024 1:00 PM EST COLONOSCOPY, DIAGNOSTIC (WRVU 3.26) Irritable bowel syndrome with constipation 08/29/2024 1:00 PM EST documented as of this encounter Visit Diagnoses Not on filedocumented in this encounter Care Teams Motorcycle Engine Assembler Relationship Specialty Start Date End Date Luis E Narayan MD [facility] [address] [place] [address] PCP - General Family Medicine 03/26/19 01/19/22 documented as of this encounter
--- OUTSIDE RECORDS SUMMARY | 2024-08-20 16:00 | XMS_ITS | Encounter Summary ---
Author Organization [facility] [place] [address] Care Team Providers Care New Business Clerk Name Role Phone Luis E Narayan MD Primary Care Provider [phone] Reason for Visit * Reason Onset Date Comments Questions 08/18/2020 Encounter Details Date Type Department Care Team (Late st Contact Info) Description 08/18/2020 Telephone Family Medicine at [facility] [address] [place] [phone] Susanna Lopes, MACHINE ERECTOR Questions Social History Tobacco Use Types Packs/Day [...] to get ECHO and stress test at [facility] done as outpatient Dr. Barbosa. Cardiology at will follow with these results. She will call [facility] to schedule this testing. * Telephone Encounter - Susanna Lopes LNA - 08/18/2020 11:24 AM EST Message: Patient is calling to speak with team regarding her recent visit to [facility]. Patient states she was supposed to [...] send my- message: N Offered Appointment: N MA/Nurse/[place] contacted via: Message: Y Call: N Pager: N documented in this encounter Plan of Treatment Upcoming Encounters Date Type Department Care Team (Latest Contact Info) Description 08/29/2024 1:00 PM EST Hospital Encounter Gastroenterology at [place] [phone] Roland Gooden MD [facility] [place] [address] 08/29/2024 1:00 PM EST - 08/29/2024 2:00 PM EST Surgery Gastroenterology at [place] [phone] Roland Gooden MD [facility] [place] [address] EGD, UPPER GI ENDOSCOPY (WRVU 2.09) 10/02/2024 1:00 PM EDT Office [place] [phone] Juanpablo Hernandez MD [facility] [place] [address] 10/21/2024 9:30 AM EDT Office Visit Internal Medicine at [address] [phone] Daryn Garrett MD [facility] DR LIL[place] [address] 01/30/2025 1:30 PM EDT Laboratory Appointment Lab at [facility] Hematology Oncology [address] [place] [phone] 01/30/2025 3:[address] [place] [address] Arturo Cordero MD [facility] [place] [address] 01/30/2025 4:15 PM EDT Office Visit Hematology [place] [address] Arturo Cordero MD [facility] [place] [address] Scheduled Procedures Name Priority Associated Diagnoses Date/Ti me EGD, UPPER GI ENDOSCOPY (WRVU 2.09) Irritable bowel syndrome with constipation 08/29/2024 1:00 PM EST COLONOSCOPY, DIAGNOSTIC (WRVU 3.26) Irritable bowel syndrome with constipation 08/29/2024 1:00 PM EST documented as of this encounter Visit Diagnoses Not on filedocumented in this encounter Care Teams New Business Clerk Relationship Specialty Start Date End Date Luis E Narayan MD [facility] [address] [place] [address] PCP - General Family Medicine 03/26/19 01/19/22 documented as of this encounter
--- OUTSIDE RECORDS SUMMARY | 2024-08-20 16:00 | XMS_ITS | Encounter Summary ---
Author Organization [facility] Address [facility] [address] Care Team Providers Care Wwe Wrestler Name Role Phone Luis E Narayan MD Primary Care Provider +1- [phone] Encounter Details Date Type Department Care Team (Late st Contact Info) Description 06/17/2020 Telephone [place] [address] Juanpablo Hernandez MD [facility] [place] [address] Social History Tobacco Use Types Packs/Day Years [...] do - please call pt back at [phone] to discuss the next options * Telephone Encounter - Lida Bains - 06/19/2020 10:57 AM EST Phone number given. * Telephone Encounter - Christine Madera - 06/17/2020 10:12 AM EST Left VM letting Alize know that per her conversation with Dr. Hernandez yesterday, Dr. Laura Gordon [facility] has agreed to a remote consult. When Alize calls back please let her know to call [phone] to register for the remote consult documented in this encounter Plan of Treatment Upcoming Encounters Date Type Department Care Team (Latest Contact Info) Description 08/29/2024 1:00 PM EST Hospital Encounter [place] [phone] Roland Gooden MD [facility] [place] [address] 08/29/2024 1:00 PM EST - 08/29/2024 2:00 PM EST [place] [phone] Roland Gooden MD [facility] [place] [address] EGD, UPPER GI ENDOSCOPY (WRVU 2.09) 10/02/2024 1:00 PM EDT Office [place] [phone] Juanpablo Hernandez MD [facility] [place] [address] 10/21/2024 9:30 AM EDT Office Visit Internal Medicine at [place] [address] [place] [address] Daryn Garrett MD [facility] DR LILI [place] [address] 01/30/2025 1:30 PM EDT Laboratory Appointment Lab at [facility] Hematology Oncology [address] [place] [phone] 01/30/2025 3:[address] [place] [phone] Arturo Cordero MD [facility] [address] [place] [address] 01/30/2025 4:15 PM EDT Office Visit Hematology [place] [phone] Arturo Cordero MD [facility] [address] [place] [address] Scheduled Procedures Name Priority Associated Diagnoses Date/Ti me EGD, UPPER GI ENDOSCOPY (WRVU 2.09) Irritable bowel syndrome with constipation 08/29/2024 1:00 PM EST COLONOSCOPY, DIAGNOSTIC (WRVU 3.26) Irritable bowel syndrome with constipation 08/29/2024 1:00 PM EST documented as of this encounter Visit Diagnoses Not on filedocumented in this encounter Care Teams Wwe Wrestler Relationship Specialty Start Date End Date Luis E Narayan MD [facility] DR LILI [place] [address] PCP - General Family Medicine 03/26/19 01/19/22 documented as of this encounter
--- OUTSIDE RECORDS SUMMARY | 2024-08-20 16:00 | XMS_ITS | Encounter Summary ---
Author Organization [facility] [place] [address] Care Team Providers Care Senior Copywriter Name Role Phone Luis E Narayan MD Primary Care Provider [phone]- [phone] Encounter Details Date Type Department Care Team (Late st Contact Info) Description 07/14/2020 Telephone Family Medicine at [facility] [address] [place] [address] Toyin Rodriguez Social History Tobacco Use Types [...] EST Law [place] form(s) received from alumni secretary bin and placed in provider folder. * Telephone Encounter - Toyin Arboleda LNA - 07/14/2020 4:22 PM EST Law office [place] John form(s) received via [employer] fax windows server administrator. Two patient identifiers confirmed on form(s) Form(s) printed and placed in team alumni secretary mail bin. documented in this encounter Plan of Treatment Upcoming Encounters Date Type Department Care Team (Latest Contact Info) Description 08/29/2024 1:00 PM EST Hospital Encounter [place] [phone] Roland Gooden MD [facility] [place] [address] 08/29/2024 1:00 PM EST - 08/29/2024 2:00 PM EST Surgery [place] [phone] Roland Gooden MD [facility] [place] [address] EGD, UPPER GI ENDOSCOPY (WRVU 2.09) 10/02/2024 1:00 PM EDT Office [place] [phone] Juanpablo Hernandez MD [facility] [place] [address] 10/21/2024 9:30 AM EDT Office Visit Internal Medicine at [address] [phone] Daryn Garrett MD [facility] DR LILI [place] [address] 01/30/2025 1:30 PM EDT Laboratory Appointment Lab at [facility] Hematology Oncology [address] [place] [phone] 01/30/2025 3:[address] [place] [address] Arturo Cordero MD [facility] [place] [address] 01/30/2025 4:15 PM EDT Office Visit Hematology and Oncology at [facility] [place] [address] Arturo Cordero MD [facility] [place] [address] Scheduled Procedures Name Priority Associated Diagnoses Date/Ti me EGD, UPPER GI ENDOSCOPY (WRVU 2.09) Irritable bowel syndrome with constipation 08/29/2024 1:00 PM EST COLONOSCOPY, DIAGNOSTIC (WRVU 3.26) Irritable bowel syndrome with constipation 08/29/2024 1:00 PM EST documented as of this encounter Visit Diagnoses Not on filedocumented in this encounter Care Teams Senior Copywriter Relationship Specialty Start Date End Date Luis E Narayan MD [facility] [address] [place] [address] PCP - General Family Medicine 03/26/19 01/19/22 documented as of this encounter
--- OUTSIDE RECORDS SUMMARY | 2024-08-20 16:00 | XMS_ITS | Encounter Summary ---
Author Organization [facility] Address [facility] [place] [address] Care Team Providers Care Pet Caretaker Name Role Phone Daryn Garrett MD Primary Care Provider [phone] Reason for Visit * Reason Onset Date Comments Medication Refill 09/12/2020 Encounter Details Date Type Department Care Team (Late st Contact Info) Description 09/12/2020 Refill Family Medicine at [facility] [address] [place] [address] Luis E Narayan MD [facility] DR LILI [place] [address] Social History Tobacco Use Types Packs/Day Years [...] 1:00 PM EST Hospital Encounter [place] [phone] Roland Gooden MD [facility] [place] [address] 08/29/2024 1:00 PM EST - 08/29/2024 2:00 PM EST Surgery [place] [phone] oRland Gooden MD [facility] [place] [address] EGD, UPPER GI ENDOSCOPY (WRVU 2.09) 10/02/2024 1:00 PM EDT Office [place] [address] Juanpablo Hernandez MD [facility] [address] 10/21/2024 9:30 AM EDT Office Visit Internal Medicine at [facility] [address] [place] [address] Daryn Garrett MD [facility] [place] [address] 01/30/2025 1:30 PM EDT Laboratory Appointment Lab at [facility] Hematology Oncology [address] [place] [phone] 01/30/2025 3:[address] [place] [phone] Arturo Cordero MD [facility] [place] [address] 01/30/2025 4:15 PM EDT Office Visit Hematology [place] [phone] Arturo Cordero MD [facility] [place] [address] Scheduled Procedures Name Priority Associated Diagnoses Date/Ti me EGD, UPPER GI ENDOSCOPY (WRVU 2.09) Irritable bowel syndrome with constipation 08/29/2024 1:00 PM EST COLONOSCOPY, DIAGNOSTIC (WRVU 3.26) Irritable bowel syndrome with constipation 08/29/2024 1:00 PM EST documented as of this encounter Visit Diagnoses Not on filedocumented in this encounter Care Teams Pet Caretaker Relationship Specialty Start Date End Date Daryn Garrett MD [facility] [place] [address] PCP - General 04/10/24 documented as of this encounter
--- OUTSIDE RECORDS SUMMARY | 2024-08-20 16:00 | XMS_ITS | Encounter Summary ---
Author Organization [facility] [place] [address] Care Team Providers Care County Adviser Name Role Phone Luis E Narayan MD Primary Care Provider [phone]- [phone] Reason for Visit * Reason Onset Date Comments Medication Refill 07/26/2020 Encounter Details Date Type Department Care Team (Late st Contact Info) Description 07/26/2020 Refill Family Medicine at [facility] [address] [place] [address] Luis E Narayan MD [facility] DR LILI WALKER-[place] [address] Type 2 diabetes mellitus without long-term current [...] [facility] Hospital Encounter [place] [address] Roland Gooden MD [facility] [place] [address] 08/29/2024 1:00 PM EST - 08/29/2024 2:00 PM EST Surgery Gastroenterology at [address] Roland Gooden MD [facility] [place] [address] EGD, UPPER GI ENDOSCOPY (WRVU 2.09) 10/02/2024 1:00 PM EDT Office Visit Ophthalmology at [address] Juanpablo Hernandez MD [facility] [place] [address] 10/21/2024 9:30 AM EDT Office Visit Internal Medicine at [address] [phone] Daryn Garrett MD [facility] DR LILI WALKER - [place] [address] 01/30/2025 1:30 PM EDT Laboratory Appointment Lab at [facility] Hematology Oncology [address] [place], [place] [phone] 01/30/2025 3:[address] Scan at [place] [phone] Arturo Cordero MD [facility] HEMATOLOGY [place] [address] 01/30/2025 4:15 PM EDT Office Visit Hematology and Oncology at [place] [phone] Arturo Cordero MD [facility] HEMATOLOGY [place] [address] Scheduled Procedures Name Priority Associated Diagnoses Date/Ti [...] syndrome documented in this encounter Care Teams County Adviser Relationship Specialty Start Date End Date Luis E Narayan MD [facility] DR LILI WALKER-[place] [address] PCP - General Family Medicine 03/26/19 01/19/22 documented as of this encounter
--- OUTSIDE RECORDS SUMMARY | 2024-08-20 16:00 | XMS_ITS | Encounter Summary ---
Author Organization [facility] Address [facility] [place] [address] Care Team Providers Care Funeral Assistant Name Role Phone Luis E Narayan MD Primary Care Provider Encounter Details Date Type Department Care Team (Latest Contact Info) Description 08/24/2020 6:00 PM EST TH Visit (TeleHealth) Family Medicine at [facility] [address] [place] [address] Earl Valdez MD [facility] DR LILI WALKER[place] [address] Atypical chest pain Social History Tobacco Use [...] was seen in an emergency room at [facility] on 08/17.This was for chest [...] 1:00 PM EST Hospital En[place] [address] Roland Gooden MD [facility] [place] [address] 08/29/2024 1:00 PM EST - 08/29/2024 2:00 PM EST [place] [address] Roland Gooden MD [facility] [place] [address] EGD, UPPER GI ENDOSCOPY (WRVU 2.09) 10/02/2024 1:00 PM EDT Office [place] [address] Juanpablo Hernandez MD [facility] [place] [address] 10/21/2024 9:30 AM EDT Office Visit Internal Medicine at [place] [address] [place] [address] Daryn Garrett MD [facility] DR LILI WALKER - [place] [address] 01/30/2025 1:30 PM EDT Laboratory Appointment Lab at [facility] Hematology Oncology [address] [place], [place] [phone] 01/30/2025 3:[address] Scan at [place] [phone] Arturo Cordero MD [facility] HEMATOLOGY [place] [address] 01/30/2025 4:15 PM EDT Office Visit Hematology and Oncology at [place] [phone] Arturo Cordero MD [facility] HEMATOLOGY [place] [address] Scheduled Procedures Name Priority Associated Diagnoses Date/Ti me EGD, UPPER GI ENDOSCOPY (WRVU 2.09) Irritable bowel syndrome with constipation 08/29/2024 1:00 PM EST COLONOSCOPY, DIAGNOSTIC (WRVU 3.26) Irritable bowel syndrome with constipation 08/29/2024 1:00 PM EST documented as of this encounter Visit Diagnoses Diagnosis Atypical chest pain Other chest pain Irritable bowel syndrome with constipation Irritable bowel syndrome documented in this encounter Care Teams Funeral Assistant Relationship Specialty Start Date End Date Luis E Narayan MD [facility] DR LILI WALKER-[place] [address] PCP - General Family Medicine 03/26/19 01/19/22 documented as of this encounter
--- OUTSIDE RECORDS SUMMARY | 2024-08-20 16:00 | XMS_ITS | Encounter Summary ---
Author Organization [facility] Address [facility] [place] [address] Care Team Providers Care Junior Legal Secretary Name Role Phone Daryn Garrett MD Primary Care Provider Reason for Visit * Reason Onset Date Comments Medication Refill 09/12/2020 Encounter Details Date Type Department Care Team (Late st Contact Info) Description 09/12/2020 Refill Family Medicine at [facility] [address] [place] [address] Camilla Carrera MD [facility] [place] [address] Social History Tobacco Use Types Packs/Day Years [...] 1:00 PM EST Hospital Encounter [place] [phone] Roland Gooden MD [facility] [place] [address] 08/29/2024 1:00 PM EST - 08/29/2024 2:00 PM EST Surgery [place] [phone] Roland Gooden MD [facility] [place] [address] EGD, UPPER GI ENDOSCOPY (WRVU 2.09) 10/02/2024 1:00 PM EDT Office [place] [address] Juanpablo Hernandez MD [facility] [place] [address] 10/21/2024 9:30 AM EDT Office Visit Internal Medicine at [facility] [address] [place] [address] Daryn Garrett MD [facility] [place] [place] [address] 01/30/2025 1:30 PM EDT Laboratory Appointment Lab at [facility] Hematology Oncology [address] [place] [phone] 01/30/2025 3:[address] [place] [phone] Arturo Cordero MD [facility] HEMATOLOGY [place] [address] 01/30/2025 4:15 PM EDT Office Visit Hematology [place] [phone] Arturo Cordero MD [facility] HEMATOLOGY [place] [address] Scheduled Procedures Name Priority Associated Diagnoses Date/Ti me EGD, UPPER GI ENDOSCOPY (WRVU 2.09) Irritable bowel syndrome with constipation 08/29/2024 1:00 PM EST COLONOSCOPY, DIAGNOSTIC (WRVU 3.26) Irritable bowel syndrome with constipation 08/29/2024 1:00 PM EST documented as of this encounter Visit Diagnoses Not on filedocumented in this encounter Care Teams Junior Legal Secretary Relationship Specialty Start Date End Date Daryn Garrett MD [facility] [place] [address] PCP - General 04/10/24 documented as of this encounter
--- OUTSIDE RECORDS SUMMARY | 2024-08-20 16:00 | XMS_ITS | Encounter Summary ---
[place] [address] Care Team Providers Care Marine Extension Agent Name Role Phone Luis E Narayan MD Primary Care Provider +1- [phone] Reason for Visit * Reason Onset Date Comments Other 08/24/2020 Encounter Details Date Type Department Care Team (Late st Contact Info) Description 08/24/2020 Telephone Family Medicine at [facility] [address] [place] [phone] Gia Bruce Other Social History Tobacco Use [...] 1:00 PM EST Hospital Encounter [place] [address] Roland Gooden MD [facility] [place] [address] 08/29/2024 1:00 PM EST - 08/29/2024 2:00 PM EST Surgery Gastroenterology at [address] Roland Gooden MD [facility] [place] [address] EGD, UPPER GI ENDOSCOPY (WRVU 2.09) 10/02/2024 1:00 PM EDT Office Visit Ophthalmology at [place] [phone] Juanpablo Hernandez MD [facility] [place] [address] 10/21/2024 9:30 AM EDT Office Visit Internal Medicine at [address] [phone] Daryn Garrett MD [facility] [place] [address] 01/30/2025 1:30 PM EDT Laboratory Appointment Lab at [facility] Hematology Oncology [address] [place], [place] [phone] 01/30/2025 3:[address] Scan at [place] [phone] Arturo Cordero MD [facility] HEMATOLOGY [place] [address] 01/30/2025 4:15 PM EDT Office Visit Hematology and Oncology at [place] [phone] Arturo Cordero MD [facility] HEMATOLOGY [place] [address] Scheduled Procedures Name Priority Associated Diagnoses Date/Ti me EGD, UPPER GI ENDOSCOPY (WRVU 2.09) Irritable bowel syndrome with constipation 08/29/2024 1:00 PM EST COLONOSCOPY, DIAGNOSTIC (WRVU 3.26) Irritable bowel syndrome with constipation 08/29/2024 1:00 PM EST documented as of this encounter Visit Diagnoses Not on filedocumented in this encounter Care Teams Marine Extension Agent Relationship Specialty Start Date End Date Luis E Narayan MD [facility] [address] [place] [address] PCP - General Family Medicine 03/26/19 01/19/22 documented as of this encounter
--- OUTSIDE RECORDS SUMMARY | 2024-08-20 16:00 | XMS_ITS | Encounter Summary ---
Author Organization [facility] Address [facility] [place] [address] Care Team Providers Care Veneer Drier Name Role Phone Luis E Narayan MD Primary Care Provider Encounter Details Date Type Department Care Team (Late st Contact Info) Description 06/18/2020 Orders Only Family Medicine at [facility] [address] [place] [address] LuisE Narayan MD [facility] DR LILI WALKER[place] [address] Social History Tobacco Use Types Packs/Day Years [...] PM EST Hospital Encounter [place] [address] Roland Gooden MD [facility] [place] [address] 08/29/2024 1:00 PM EST - 08/29/2024 2:00 PM EST Surgery Gastroenterology at [place] [phone] Roland Gooden MD [facility] [place] [address] EGD, UPPER GI ENDOSCOPY (WRVU 2.09) 10/02/2024 1:00 PM EDT Office Visit Ophthalmology at [place] [phone] Juanpablo Hernandez MD [facility] [address] 10/21/2024 9:30 AM EDT Office Visit Internal Medicine at [address] [phone] Daryn Garrett MD [facility] [place] [address] 01/30/2025 1:30 PM EDT Laboratory Appointment Lab at [facility] [place] Oncology [address] [place], [place] [phone] 01/30/2025 3:[address] Scan at [place] [phone] Arturo Cordero MD [facility] [place] [address] 01/30/2025 4:15 PM EDT Office Visit Hematology [place] [address] Arturo Cordero MD [facility] HEMATOLOGY [place] [address] Scheduled Procedures Name Priority Associated Diagnoses Date/Ti me EGD, UPPER GI ENDOSCOPY (WRVU 2.09) Irritable bowel syndrome with constipation 08/29/2024 1:00 PM EST COLONOSCOPY, DIAGNOSTIC (WRVU 3.26) Irritable bowel syndrome with constipation 08/29/2024 1:00 PM EST documented as of this encounter Visit Diagnoses Not on filedocumented in this encounter Care Teams Veneer Drier Relationship Specialty Start Date End Date Luis E Narayan MD [facility] [address] [place] [address] PCP - General Family Medicine 03/26/19 01/19/22 documented as of this encounter
--- OUTSIDE RECORDS SUMMARY | 2024-08-20 16:00 | XMS_ITS | Encounter Summary ---
[place] [address] Care Team Providers Care Cylinder Machine Operator Name Role Phone Luis E Narayan MD Primary Care Provider [phone]- [phone] Reason for Visit * Reason Comments Medication Refill Encounter Details Date Type Department Care Team (Late st Contact Info) Description 08/02/2020 Refill Family Medicine at [facility] [address] [place] [address] Luis E Narayan MD [facility] DR LILI W[place] [address] Social History Tobacco Use Types Packs/Day Years [...] 1:00 PM EST Hospital En[place] [address] Roland Gooden MD [facility] [place] [address] 08/29/2024 1:00 PM EST - 08/29/2024 2:00 PM EST Surgery Gastroenterology at [place] [phone] Roland Gooden MD [facility] [place] [address] EGD, UPPER GI ENDOSCOPY (WRVU 2.09) 10/02/2024 1:00 PM EDT Office Visit Ophthalmology at [place] [phone] Juanpablo Hernandez MD [facility] [place] [address] 10/21/2024 9:30 AM EDT Office Visit Internal Medicine at [address] [phone] Daryn Garrett MD [facility] DR LILI [place] [address] 01/30/2025 1:30 PM EDT Laboratory Appointment Lab at [facility] [place] Oncology [address] [place], [place] [phone] 01/30/2025 3:[address] Scan at [place] [phone] Arturo Cordero MD [facility] [place]AT[place] [address] 01/30/2025 4:15 PM EDT Office Visit H[place]ology [place] [phone] Arturo Cordero MD [facility] [place]AT[place] [address] Scheduled Procedures Name Priority Associated Diagnoses Date/Ti me EGD, UPPER GI ENDOSCOPY (WRVU 2.09) Irritable bowel syndrome with constipation 08/29/2024 1:00 PM EST COLONOSCOPY, DIAGNOSTIC (WRVU 3.26) Irritable bowel syndrome with constipation 08/29/2024 1:00 PM EST documented as of this encounter Visit Diagnoses Not on filedocumented in this encounter Care Teams Cylinder Machine Operator Relationship Specialty Start Date End Date Luis E Narayan MD [facility] [address] [place] [address] PCP - General Family Medicine 03/26/19 01/19/22 documented as of this encounter
--- OUTSIDE RECORDS SUMMARY | 2024-08-20 16:00 | XMS_ITS | Encounter Summary ---
[place] [address] Care Team Providers Care Oracle Distribution Consultant Name Role Phone Luis E Narayan MD Primary Care Provider Encounter Details Date Type Department Care Team (Latest Contact Info) Description 06/16/2020 10:30 AM EST Clinical Support Hematology [place] [address] Malika Ye Cigarette nicotine dependence without complication [...] Nicotine inhaler) Expected Quit Date: 09/28/19 Given [facility] Tobacco Resource Packet?: Yes Eligible for Lung Cancer Screening?: No Follow up with: [facility] Smoking Cessation Program ..Thoracic Surgery - Tobacco Cessation Consultation [facility] [place] ([place]) [place], [place] [address] FAX: HPI: Alize Gramajo is a 59 [...] smoking cessation counseling. She is currently smoking Coleman Golds and does kind of wish to [...] in places where it is forbidden? (ex. caodaism) No Yes 0 3. Which cigarette would [...] inhaler be sent to [facility] [place]. 2. Discussed behavioral change including distraction, exercise, positive thinking, deep breathing, using anxiety medications if needed, asking for help 3. 30 minutes of exercise daily 4. Call with any questions or concerns 5. Follow up in one week Malika Ye 06/16/20 Thoracic Surgery - Tobacco Cessation [facility] documented in this encounter Plan of Treatment Upcoming Encounters Date Type Department Care Team (Latest Contact Info) Description 08/29/2024 1:00 PM EST Hospital Encounter [place] [address] Roland Gooden MD [facility] [place] [address] 08/29/2024 1:00 PM EST - 08/29/2024 2:00 PM EST Surgery Gastro[place]ology [place] [address] Roland Gooden MD [facility] [place] [address] EGD, UPPER GI ENDOSCOPY (WRVU 2.09) 10/02/2024 1:00 PM EDT Office Visit Ophthalmology at [place] [phone] Juanpablo Hernandez MD [facility] [place] [address] 10/21/2024 9:30 AM EDT Office Visit Internal Medicine at [address] [phone] Daryn Garrett MD [facility] DR LILI [place] [address] 01/30/2025 1:30 PM EDT Laboratory Appointment Lab at [facility] Hematology Oncology [address] [place], [place] [phone] 01/30/2025 3:[address] Scan at [place] [phone] Arturo Cordero MD [facility] H[place]ATOLOGY [place] [address] 01/30/2025 4:15 PM EDT Office Visit Hematology [place] [phone] Arturo Cordero MD [facility] HEMATOLOGY [place] [address] Scheduled Procedures Name Priority Associated Diagnoses Date/Ti [...] syndrome documented in this encounter Care Teams Oracle Distribution Consultant Relationship Specialty Start Date End Date Luis E Narayan MD [facility] [address] [place] [address] PCP - General Family Medicine 03/26/19 01/19/22 documented as of this encounter
--- OUTSIDE RECORDS SUMMARY | 2024-08-20 16:00 | XMS_ITS | Encounter Summary ---
[place] [address] Care Team Providers Care Warp Dyeing Tender Name Role Phone Luis E Narayan MD Primary Care Provider Reason for Visit * Reason Comments Melanoma Encounter Details Date Type Department Care Team (Late st Contact Info) Description 08/28/2020 2:30 PM EST Office [place] [address] Juanpablo Hernandez MD [facility] [place] [address] Malignant melanoma of conjunctiva, left Social History [...] 1:00 PM EST Hospital Encounter [place] [address] Roland Gooden MD [facility] [place] [address] 08/29/2024 1:00 PM EST - 08/29/2024 2:00 PM EST Surgery Gastroenterology at [address] Roland Gooden MD [facility] [place] [address] EGD, UPPER GI ENDOSCOPY (WRVU 2.09) 10/02/2024 1:00 PM EDT Office Visit Ophthalmology at [place] [phone] Juanpablo Hernandez MD [facility] [place] [address] 10/21/2024 9:30 AM EDT Office Visit Internal Medicine at [address] [phone] Daryn Garrett MD [facility] DR LILI WALKER - [place] [address] 01/30/2025 1:30 PM EDT Laboratory Appointment Lab at [facility] Hematology Oncology [address] [place], [place] [phone] 01/30/2025 3:[address] Scan at [place] [phone] Arturo Cordero MD [facility] HEMATOLOGY [place] [address] 01/30/2025 4:15 PM EDT Office Visit Hematology and Oncology at [place] [phone] Arturo Cordero MD [facility] [place] [address] Scheduled Procedures Name Priority Associated Diagnoses Date/Ti me EGD, UPPER GI ENDOSCOPY (WRVU 2.09) Irritable bowel syndrome with constipation 08/29/2024 1:00 PM EST COLONOSCOPY, DIAGNOSTIC (WRVU 3.26) Irritable bowel syndrome with constipation 08/29/2024 1:00 PM EST documented as of this encounter Visit Diagnoses Diagnosis Malignant melanoma of conjunctiva, left Irritable bowel syndrome with constipation Irritable bowel syndrome documented in this encounter Care Teams Warp Dyeing Tender Relationship Specialty Start Date End Date Luis E Narayan MD [facility] DR LILI WALKER-[place] [address] PCP - General Family Medicine 03/26/19 01/19/22 documented as of this encounter
--- OUTSIDE RECORDS SUMMARY | 2024-08-20 16:00 | XMS_ITS | Encounter Summary ---
[place] [address] Care Team Providers Care Sulfuric Acid Plant Operator Name Role Phone Luis E Narayan MD Primary Care Provider Encounter Details Date Type Department Care Team (Late st Contact Info) Description 08/17/2020 Notes Only [place] [phone] Boogie Munroe MD Social History Tobacco Use Types Packs/Day [...] 1:00 PM EST Hospital En[place] [phone] Roland Gooden MD [facility] [place] [address] 08/29/2024 1:00 PM EST - 08/29/2024 2:00 PM EST Surgery Gastroenterology at [place] [phone] Roland Gooden MD [facility] [place] [address] EGD, UPPER GI ENDOSCOPY (WRVU 2.09) 10/02/2024 1:00 PM EDT Office Visit Ophthalmology at [place] [phone] Juanpablo Hernandez MD [facility] [place] [address] 10/21/2024 9:30 AM EDT Office Visit Internal Medicine at [address] [phone] Daryn Garrett MD [facility] DR LILI [place] [address] 01/30/2025 1:30 PM EDT Laboratory Appointment Lab at [facility] [place]ematology Oncology [address] [place], [place] [phone] 01/30/2025 3:[address] Scan at [place] [phone] Arturo Cordero MD [facility] [place] [address] 01/30/2025 4:15 PM EDT Office Visit Hematology and Oncology at [place] [phone] Arturo Cordero MD [facility] [place] [address] Scheduled Procedures Name Priority Associated Diagnoses Date/Ti me EGD, UPPER GI ENDOSCOPY (WRVU 2.09) Irritable bowel syndrome with constipation 08/29/2024 1:00 PM EST COLONOSCOPY, DIAGNOSTIC (WRVU 3.26) Irritable bowel syndrome with constipation 08/29/2024 1:00 PM EST documented as of this encounter Visit Diagnoses Not on filedocumented in this encounter Care Teams Sulfuric Acid Plant Operator Relationship Specialty Start Date End Date Luis E Narayan MD [facility] [address] [place] [address] PCP - General Family Medicine 03/26/19 01/19/22 documented as of this encounter
--- OUTSIDE RECORDS SUMMARY | 2024-08-20 16:00 | XMS_ITS | Encounter Summary ---
Author Organization [facility] [place] [address] Care Team Providers Care Shank Breaker Name Role Phone Luis E Narayan MD Primary Care Provider [phone]- [phone] Reason for Visit * Reason Onset Date Comments Follow-up 08/14/2020 Encounter Details Date Type Department Care Team (Late st Contact Info) Description 08/14/2020 Telephone [place] [address] Juanpablo Hernandez MD [facility] [place] [address] Follow-up Social History Tobacco Use Types Packs/Day [...] afternoon and wouldgive her a ring tomorrow. [phone] * Telephone Encounter - Chantell Dukes - [...] still can't see the claim made from [employer]. We went around and she states that [...] [facility] [place] [facility] [place]. [facility] pharmacy called back and spoke with Hillary to state that they do not compound. I called [facility] pharmacy and spoke with a Kati [...] that compound. I left a message for [facility] to see if they compound mytomicin drops. I also called the other pharmacy [facility] tosee if they compound mytomicin into drops and they do not. Working on PA to send in today documented in this encounter Plan of Treatment Upcoming Encounters Date Type Department Care Team (Latest Contact Info) Description 08/29/2024 1:00 PM EST Hospital En[place] [address] Roland Gooden MD [facility] [place] [address] 08/29/2024 1:00 PM EST - 08/29/2024 2:00 PM EST Surgery Gastroenterology at [place] [phone] Roland Gooden MD [facility] [place] [address] EGD, UPPER GI ENDOSCOPY (WRVU 2.09) 10/02/2024 1:00 PM EDT Office Visit Ophthalmology at [place] [phone] Juanpablo Hernandez MD [facility] [place] [address] 10/21/2024 9:30 AM EDT Office Visit Internal Medicine at [address] [phone] Daryn Garrett MD [facility] DR LILI [place] [address] 01/30/2025 1:30 PM EDT Laboratory Appointment Lab at [facility] Hematology Oncology [address] [place], [place] [phone] 01/30/2025 3:[address] Scan at [place] [phone] Arturo Cordero MD [facility] [place] [address] 01/30/2025 4:15 PM EDT Office Visit Hematology [place] [phone] Arturo Cordero MD [facility] [place] [address] Scheduled Procedures Name Priority Associated Diagnoses Date/Ti me EGD, UPPER GI ENDOSCOPY (WRVU 2.09) Irritable bowel syndrome with constipation 08/29/2024 1:00 PM EST COLONOSCOPY, DIAGNOSTIC (WRVU 3.26) Irritable bowel syndrome with constipation 08/29/2024 1:00 PM EST documented as of this encounter Visit Diagnoses Not on filedocumented in this encounter Care Teams Shank Breaker Relationship Specialty Start Date End Date Luis E Narayan MD [facility] DR LILI [place] [address] PCP - General Family Medicine 03/26/19 01/19/22 documented as of this encounter
--- OUTSIDE RECORDS SUMMARY | 2024-08-20 16:00 | XMS_ITS | Encounter Summary ---
Author Organization [facility] Address [facility] [place] [address] Care Team Providers Care Director Of Financial Reporting Name Role Phone Luis E Narayan MD Primary Care Provider [phone]- [phone] Reason for Visit * Reason Onset Date Comments Medication Refill 06/25/2020 Encounter Details Date Type Department Care Team (Late st Contact Info) Description 06/25/2020 Refill Family Medicine at [facility] [address] [place] [address] Bonny Emanuel MD [address] [place] [address] Social History Tobacco Use Types Packs/Day Years [...] 1:00 PM EST Hospital Encounter [place] [address] Roland Gooden MD [facility] [place] [address] 08/29/2024 1:00 PM EST - 08/29/2024 2:00 PM EST Surgery Gastroenterology at [place] [phone] Roland Gooden MD [facility] [place] [address] EGD, UPPER GI ENDOSCOPY (WRVU 2.09) 10/02/2024 1:00 PM EDT Office Visit Ophthalmology at [place] [phone] Juanpablo Hernandez MD [facility] [place] [address] 10/21/2024 9:30 AM EDT Office Visit Internal Medicine at [address] [phone] Daryn Garrett MD [facility] DR LILI WALKER - [place] [address] 01/30/2025 1:30 PM EDT Laboratory Appointment Lab at [facility] [place]ology On[place] [address] [place], [place] [phone] 01/30/2025 3:[address] Scan at [place] [phone] Arturo Cordero MD [facility] HEMATOLOGY [place] [address] 01/30/2025 4:15 PM EDT Office Visit Hematology [place] [phone] Arturo Cordero MD [facility] HEMATOLOGY [place] [address] Scheduled Procedures Name Priority Associated Diagnoses Date/Ti me EGD, UPPER GI ENDOSCOPY (WRVU 2.09) Irritable bowel syndrome with constipation 08/29/2024 1:00 PM EST COLONOSCOPY, DIAGNOSTIC (WRVU 3.26) Irritable bowel syndrome with constipation 08/29/2024 1:00 PM EST documented as of this encounter Visit Diagnoses Not on filedocumented in this encounter Care Teams Director Of Financial Reporting Relationship Specialty Start Date End Date Luis E Narayan MD [facility] DR LILI [place] [address] PCP - General Family Medicine 03/26/19 01/19/22 documented as of this encounter
--- OUTSIDE RECORDS SUMMARY | 2024-08-20 16:00 | XMS_ITS | Encounter Summary ---
Author Organization [facility] [place] [address] Care Team Providers Care Planer Stone Name Role Phone Luis E Narayan MD Primary Care Provider [phone] Encounter Details Date Type Department Care Team (Late st Contact Info) Description 09/14/2020 Telephone Family Medicine at [facility] [address] [place] [phone] Silvio Alonzo Social History Tobacco Use Types [...] EST Records faxed to law office at [phone] * Telephone Encounter - Silvio Alonzo - [...] Narayan MD Subject:Other Dr. Narayan, my disability road mixer operator sent you some paperwork. I know you [...] 1:00 PM EST Hospital Encounter [place] [phone] Roland Gooden MD [facility] [place] [address] 08/29/2024 1:00 PM EST - 08/29/2024 2:00 PM EST [place] [phone] Roland Gooden MD [facility] [place] [address] EGD, UPPER GI ENDOSCOPY (WRVU 2.09) 10/02/2024 1:00 PM EDT Office [place] [phone] Juanpablo Hernandez MD [facility] [place] [address] 10/21/2024 9:30 AM EDT Office Visit Internal Medicine at [address] [phone] Daryn Garrett MD [facility] DR [place] [address] 01/30/2025 1:30 PM EDT Laboratory Appointment Lab at [facility] Hematology Oncology [address] [place] [phone] 01/30/2025 3:[address] [place] [phone] Arturo Cordero MD [facility] [place] [address] 01/30/2025 4:15 PM EDT Office Visit Hematology [place] [address] Arturo Cordero MD [facility] [place] [address] Scheduled Procedures Name Priority Associated Diagnoses Date/Ti me EGD, UPPER GI ENDOSCOPY (WRVU 2.09) Irritable bowel syndrome with constipation 08/29/2024 1:00 PM EST COLONOSCOPY, DIAGNOSTIC (WRVU 3.26) Irritable bowel syndrome with constipation 08/29/2024 1:00 PM EST documented as of this encounter Visit Diagnoses Not on filedocumented in this encounter Care Teams Planer Stone Relationship Specialty Start Date End Date Luis E Narayan MD [facility] DR LILI [place] [address] PCP - General Family Medicine 03/26/19 01/19/22 documented as of this encounter
--- OUTSIDE RECORDS SUMMARY | 2024-08-20 16:00 | XMS_ITS | Encounter Summary ---
Author Organization [facility] [place] [address] Care Team Providers Care Dicer Operator Name Role Phone Luis E Narayan MD Primary Care Provider [phone]- [phone] Encounter Details Date Type Department Care Team (Late st Contact Info) Description 08/21/2020 Telephone Family Medicine at [facility] [address] [place] [address] Prakashiker, Lacie L Social History Tobacco Use [...] information. I did send back to the probate lawyer with that comment. My recommednation is for herto schedule with a physician who does disability evaluations. Most ethnology teacher have a list of physicians who do that work. I am not sure who around here does. We can discuss at next visit if she wants. thanks * Telephone Encounter - Silvio Alonzo - 08/21/2020 3:15 PM EST Records requested faxed to [facility] * Telephone Encounter - Thomas Tyson RN - 08/21/2020 2:36 PM EST Patient Alize called in today to request results from EKG, ECHO, and labs from [facility]. Patient identity confirmed by full name and . Patient reports she was seen at the ED at [facility] for chest pressure with sob. Patient [...] letters sent to our office from her probate lawyer. Patient had no further questions or concerns anddid not want a follow up at this time. documented in this encounter Plan of Treatment Upcoming Encounters Date Type Department Care Team (Latest Contact Info) Description 08/29/2024 1:00 PM EST Hospital En[place] [phone] Roland Gooden MD [facility] [place] [address] 08/29/2024 1:00 PM EST - 08/29/2024 2:00 PM EST [place] [phone] Roland Gooden MD [facility] [place] [address] EGD, UPPER GI ENDOSCOPY (WRVU 2.09) 10/02/2024 1:00 PM EDT [place] [phone] Juanpablo Hernandez MD [facility] [place] [address] 10/21/2024 9:30 AM EDT Office Visit Internal Medicine at [facility] [address] [place] [address] Daryn Garrett MD [facility] DR LILI [place]EVEDO [place] [address] 01/30/2025 1:30 PM EDT Laboratory Appointment Lab at [facility] Hematology Oncology [address] [place] [phone] 01/30/2025 3:[address] [place] [phone] Arturo Cordero MD [facility] HEMATOLOGY [place] [address] 01/30/2025 4:15 PM EDT Office Visit [place]ology [place] [phone] Arturo Cordero MD [facility] HEMATOLOGY [place] [address] Scheduled Procedures Name Priority Associated Diagnoses Date/Ti me EGD, UPPER GI ENDOSCOPY (WRVU 2.09) Irritable bowel syndrome with constipation 08/29/2024 1:00 PM EST COLONOSCOPY, DIAGNOSTIC (WRVU 3.26) Irritable bowel syndrome with constipation 08/29/2024 1:00 PM EST documented as of this encounter Visit Diagnoses Not on filedocumented in this encounter Care Teams Dicer Operator Relationship Specialty Start Date End Date Luis E Narayan MD [facility] DR LILI AZEVEDO[place] [address] PCP - General Family Medicine 03/26/19 01/19/22 documented as of this encounter
--- OUTSIDE RECORDS SUMMARY | 2024-08-20 16:00 | XMS_ITS | Encounter Summary ---
[place] [address] Care Team Providers Care Brick Loader Name Role Phone Luis E Narayan MD Primary Care Provider [phone] Reason for Visit * Reason Comments Chest Pain Encounter Details Date Type Department Care Team (Late st Contact Info) Description 09/11/2020 2:09 PM EST - 09/11/2020 5:51 PM [place] [address] Hair Tanner MD [facility] [place] [address] Costochondritis; Constipation, unspecified constipation type Discharge Disposition: [...] be sent through Care Everywhere. * Costochondritis (Israeli) * Constipation (Israeli) documented in this encounter Medications at Time of Discharge Medication Sig Dispensed Refills Start Date End Date traZODone (Desyrel) 100 mg Tablet Take 1 tablet by mouth nightly. 90 tablet 3 06/26/2020 aspirin EC 81 mg Tablet, Delayed Release (E.C.) Take 81 mg by mouth daily. fluticasone propionate (FLONASE) 50 mcg/actuation Gregory, Suspension 1 spray by Each Nare route [...] 10/10. Notably, pt was recently seen at [facility] on 08/17 for unrelated chest pressure. [...] 3.47) performed by Juanpablo Hernandez MD at [facility] ??? PRO EXCIS CORNEA LESN Left 05/14/2020 EXCISION OF LESION, CORNEA, EXCEPT PTERYGIUM (WRVU 7.5) performed by Juanpablo Hernandez MD at [facility] ??? PRO LAP, PARTIAL NEPHRECTOMY Left 06/28/2019 LAPAROSCOPY, PARTIAL NEPHRECTOMY, ROBOTIC ASSIST (WRVU 27.41) performed by Avila Medina MD at [facility] OR ??? PRO PLACE AMNIOTIC MEMBRANE OCULAR SURFACE;SINGLE LAYER SUTURED Left 05/14/2020 PLACEMENT OF AMNIOTIC MEMBRANE ON THE OCULAR SURFACE,SINGLE LAYER,SUTURED (WRVU 2.5) performed by Juanpablo Hernandez MD at [facility] Social History:1PPD smoker, non-drinker, [...] Doppler, and color-flow Echocardiogram Patient Location: Out-Patient Chief Of Staff: Arlen Coker RDCS (AE) Indications: Chest pain, [...] [x] None Exposure [] Recent travel outside [place] [] Contact with known or suspected positive [...] 1:00 PM EST Hospital [place] [address] Roland Gooden MD [facility] [place] [address] 08/29/2024 1:00 PM EST - 08/29/2024 2:00 PM EST Surgery Gastroenterology at [place] [phone] Roland Gooden MD [facility] [place] [address] EGD, UPPER GI ENDOSCOPY (WRVU 2.09) 10/02/2024 1:00 PM EDT Office Visit Ophthalmology at [place] [phone] Juanpablo Hernandez MD [facility] [place] [address] 10/21/2024 9:30 AM EDT Office Visit Internal Medicine at [address] [phone] Daryn Garrett MD [facility] DR L[place]I [place] [address] 01/30/2025 1:30 PM EDT Laboratory Appointment Lab at [facility] Hematology Oncology [address] [place], [place] [phone] 01/30/2025 3:[address] Scan at [place] [phone] Arturo Cordero MD [facility] [place] [address] 01/30/2025 4:15 PM EDT Office Visit H[place] [address] Arturo Cordero MD [facility] [place] [address] Scheduled Procedures Name Priority Associated Diagnoses Date/Ti [...] PM EST) Gold Hold Sample in lab. [facility] Blood specimen (specimen) Venous Draw / Unknown 09/11/2020 2:45 PM EST 09/11/2020 2:55 PM EST Mal CARLIN CHEMISTRY ORDERABLES Performing Organization Address [facility]/ZIP Co de Phone Number [facility] [place] [phone] * Blue Tube HOLD (09/11/2020 2:45 PM EST) Blue Hold Sample in lab. [facility] Blood specimen (specimen) Venous Draw / Unknown 09/11/2020 2:45 PM EST 09/11/2020 2:55 PM EST Mal CARLIN HEMATOLOGY ORDERABLE S Performing Organization Address City/[facility]/ZIP Co de Phone Number [facility] [place] [phone] * Differential, Automated (09/11/2020 2:45 PM EST) Neutrophil % 58.6 % [facility] Neutrophil Absolute 4.51 1.70 - 6.10 x10(3)/[facility] Lymph % 31.7 % [facility] Lymphocytes Abs 2.4 0.9 - 3.2 x10(3)/[facility] Monocyte % 7.4 % [facility] Monocyte Abs 0.6 0.3 - 0.9 x10(3)/[facility] Eos % 1.4 % [facility] Eosinophils Abs 0.1 0.0 - 0.4 x10(3)/[facility] Basophil % 0.6 % [facility] Baso Absolute 0.0 0.0 - 0.1 x10(3)/[facility] Immature Gran % 0.30 % [facility] Comment: Immature granulocytes(IG's)percentage and absolute count will include metamyelocytes, myelocytes, and promyelocytes. Blood smears from CBCs yielding IG's will be scanned manually for concordance. If this scan disagrees with the automated IG or if promyelocytes are noted, a manual differential will be performed. Immature Gran Absolute 0.02 0.00 - 0.04 x10(3)/[facility] Blood specimen (specimen) 09/11/2020 2:45 PM EST 09/11/2020 2:54 PM EST Narrative Resulting Agency Comment Spec In Lab Mal CARLIN HEMATOLOGY ORDERABLE S [facility] [place] [address] * (ABNORMAL) Hemogram (09/11/2020 2:45 PM EST) White Blood Cell 7.7 4.0 - 9.5 x10(3)/mc L [facility] Red Blood Cell 4.76 4.00 - 5.21 x10(6)/mc L [facility] Hemoglobin 13.7 11.7 - 15.5 gm/dL [facility] Hematocrit 40.8 35.7 - 45.8 % [facility] Mean Cell Volume 85.7 82.6 - 94.4 fL [facility] Mean Cell Hemoglobin 28.8 27.1 - 32.0 pg [facility] Mean Cell Hemoglobin Concentration 33.6 31.7 - 35.0 gm/dL [facility] Platelet 371(H) 145 - 357 x10(3)/mc L [facility] RDW Standard Deviation 41.8 37.0 - 46.0 fL [facility] RDW coefficient of variation 13.3 11.5 - 14.1 % [facility] Mean Platelet Volume 9.0 7.6 - 12.9 fL [facility] NRBC% auto 0.0 % [facility] NRBC Absolute 0.000 0.000 - 0.000 x10(3)/mc L [facility] Blood specimen (specimen) 09/11/2020 2:45 PM EST 09/11/2020 2:54 PM EST Narrative Resulting Agency Comment Spec In Lab Mal CARLIN HEMATOLOGY ORDERABLE S [facility] [place] [address] * Troponin (09/11/2020 2:45 PM EST) Troponin-T <0.01 0.00 - 0.00 ng/mL [facility] Comment: The 99th percentile for Troponin [...] ischemia ?? New or presumed new significant JG-yfjicth-G wave (ST-T) changes or new left bundle [...] additional sample may be indicated. Reference: Third [place] Definition of Myocardial Infarction. Journal of the [place] [employer] 2012;60:1581-98 Blood specimen (specimen) 09/11/2020 2:45 PM EST 09/11/2020 2:54 PM EST Narrative Resulting Agency Comment Spec In Lab Juanpablo Nelson MD CHEMISTRY ORDERABLES Performing Organization Address [facility] de Phone Number [facility] [place] [address] * Lipase (09/11/2020 2:45 PM EST) Lipase 38 0 - 60 unit/L [facility] Blood specimen (specimen) 09/11/2020 2:45 PM EST 09/11/2020 2:54 PM EST Narrative Resulting Agency Comment Spec In Lab Juanpablo Nelson MD CHEMISTRY ORDERABLES Performing Organization Address [facility] de Phone Number [facility] [place] [address] * (ABNORMAL) Hepatic Function Panel (09/11/2020 2:45 PM EST) Protein, Total 7.5 6.1 - 8.0 gm/dL [facility] Albumin 4.6 3.2 - 5.2 gm/dL [facility] Aspartate Aminotransferase 20 0 - 30 unit/L [facility] Alanine Aminotransferase 22 0 - 30 unit/L [facility] Alkaline Phosphatase 115(H) 35 - 105 unit/L [facility] Bilirubin, Total 0.4 0.2 - 1.3 mg/dL [facility] Bilirubin, Direct 0.1 0.0 - 0.3 mg/dL [facility] Blood specimen (specimen) 09/11/2020 2:45 PM EST 09/11/2020 2:54 PM EST Narrative Resulting Agency Comment Spec In Lab Juanpablo Nelson MD CHEMISTRY ORDERABLES [facility] [place] [address] * Basic Metabolic Panel (non-fasting) (09/11/2020 2:45 PM EST) Glucose 89 65 - 199 mg/dL [facility] Comment:Diabetes: >=200 mg/d L plus symptoms Blood Urea Nitrogen 14 8 - 18 mg/dL [facility] Creatinine 0.88 0.70 - 1.20 mg/dL [facility] Sodium 141 135 - 145 mmol/L [facility] Potassium 4.3 3.5 - 5.0 mmol/L [facility] Comment: Please note: ??Patients with WBC >100,000 may have falsely elevated Potassium levels. ??For accurate Potassium quantification in these patients send serum separator tube (gold top) for subsequent determinations. ??Contact the Clinical Chemistry Laboratory if there are any questions. Chloride 103 98 - 107 mmol/L [facility] Carbon Dioxide 25 22 - 31 mmol/L [facility] Anion Gap 13 5 - 15 mmol/L [facility] Calcium 9.5 8.5 - 10.5 mg/dL [facility] Est Glomerular Filtration Rate 71 >=60 mL/min/1. 73 m?? [facility] [...] In Lab Juanpablo Nelson MD CHEMISTRY ORDERABLES [facility] [place] [address] * EKG 12 Lead (09/11/2020 2:20 PM EST) Ventricular rate 75 BPM MUSE SYSTEM Atrial Rate 75 BPM MUSE SYSTEM P-R Interval 170 ms MUSE SYSTEM QRS Duration 92 ms MUSE SYSTEM Q-T Interval 390 ms MUSE SYSTEM QTC Calculated (Bezet) 435 ms MUSE SYSTEM Calculated P Roby 53 degrees MUSE SYSTEM Calculated R Roby 3 degrees MUSE SYSTEM Calculated T Roby 54 degrees MUSE SYSTEM INTERPRETATION Normal sinus rhythm Normal ECG When compared with ECG of 14-FEB-2019 22:28, Aberrant conduction is no longer Present Confirmed by Radha Lawrence ([id number]) on 09/11/2020 7:23:38 PM MUSE SYSTEM 09/11/2020 2:20 PM EST 09/11/2020 7:23 PM EST Juanpablo Nelson MD ECG ORDERABLES MUSE SYSTEM documented in this encounter Visit Diagnoses Diagnosis Costochondritis Tietze's disease Constipation, unspecified constipation type Irritable bowel syndrome [...] 1 dose, On 09/11/20 at 1407, STAT 1530 (Given - Provid er: Elías Miranda NRP) documented in this encounter Care Teams Brick Loader Relationship Specialty Start Date End Date Luis E Narayan MD [facility] [address] [place] [address] PCP - General Family Medicine 03/26/19 01/19/22 documented as of this encounter
--- OUTSIDE RECORDS SUMMARY | 2024-08-20 16:00 | XMS_ITS | Encounter Summary ---
Author Organization [facility] [place] [address] Care Team Providers Care Patient Access Registrar Name Role Phone Luis E Narayan MD Primary Care Provider [phone]- [phone] Reason for Visit * Reason Onset Date Comments Medication Problem 08/10/2020 Pharmacist as micha for call back Encounter Details Date Type Department Care Team (Late st Contact Info) Description 08/10/2020 Telephone [place] [address] Juanpablo Hernandez MD [facility] [place] [address] Medication Problem (Pharmacist asking for call back) [...] ??3:15 PM Author Type: Physician Status: Signed Sight Mounter: Juanpablo Hernandez MD (Physician) Encounter Diagnosis Name [...] 1:00 PM EST Hospital Encounter [place] [address] Roland Gooden MD [facility] [place] [address] 08/29/2024 1:00 PM EST - 08/29/2024 2:00 PM EST Surgery Gastroenterology at [place] [phone] Roland Gooden MD [facility] [place] [address] EGD, UPPER GI ENDOSCOPY (WRVU 2.09) 10/02/2024 1:00 PM EDT Office Visit Ophthalmology at [place] [phone] Juanpablo Hernandez MD [facility] [place] [address] 10/21/2024 9:30 AM EDT Office Visit Internal Medicine at [address] [phone] Daryn Garrett MD [facility] [place] [address] 01/30/2025 1:30 PM EDT Laboratory Appointment Lab at [facility] [place] Oncology [address] [place], [place] [phone] 01/30/2025 3:[address] Scan at [place] [phone] Arturo Cordero MD [facility] [place] [address] 01/30/2025 4:15 PM EDT Office Visit Hematology [place] [address] Arturo Cordero MD [facility] [place] [address] Scheduled Procedures Name Priority Associated Diagnoses Date/Ti me EGD, UPPER GI ENDOSCOPY (WRVU 2.09) Irritable bowel syndrome with constipation 08/29/2024 1:00 PM EST COLONOSCOPY, DIAGNOSTIC (WRVU 3.26) Irritable bowel syndrome with constipation 08/29/2024 1:00 PM EST documented as of this encounter Visit Diagnoses Not on filedocumented in this encounter Care Teams Patient Access Registrar Relationship Specialty Start Date End Date Luis E Narayan MD [facility] [address] [place] [address] PCP - General Family Medicine 03/26/19 01/19/22 documented as of this encounter
--- OUTSIDE RECORDS SUMMARY | 2024-08-20 16:00 | XMS_ITS | Encounter Summary ---
Author [place] [address] Care Team Providers Care Metal Storage Worker Name Role Phone Luis E Narayan MD Primary Care Provider [phone]- [phone] Reason for Visit * Reason Onset Date Comments Medication Refill 06/22/2020 Encounter Details Date Type Department Care Team (Late st Contact Info) Description 06/22/2020 Refill Family Medicine at [facility] [address] [place] [address] Bonny Emanuel MD [address] [place] [address] Mixed hyperlipidemia Social History Tobacco Use Types [...] Contact Info) Description 08/29/2024 1:00 PM [facility] Hospital [place] [address] Roland Gooden MD [facility] [place] [address] 08/29/2024 1:00 PM EST - 08/29/2024 2:00 PM EST Surgery Gastroenterology at [place] [phone] Roland Gooden MD [facility] [place] [address] EGD, UPPER GI ENDOSCOPY (WRVU 2.09) 10/02/2024 1:00 PM EDT Office Visit Ophthalmology at [place] [phone] Juanpablo Hernandez MD [facility] [place] [address] 10/21/2024 9:30 AM EDT Office Visit Internal Medicine at [address] [phone] Daryn Garrett MD [facility] DR LILI [place] [address] 01/30/2025 1:30 PM EDT Laboratory Appointment Lab at [facility] [place]ematology Oncology [address] [place], [place] [phone] 01/30/2025 3:[address] Scan at [place] [phone] Arturo Cordero MD [facility] [place] [address] 01/30/2025 4:15 PM EDT Office Visit Hematology [place] [address] Arturo Cordero MD [facility] HEMATOLOGY [place] [address] Scheduled Procedures Name Priority Associated Diagnoses Date/Ti me EGD, UPPER GI ENDOSCOPY (WRVU 2.09) Irritable bowel syndrome with constipation 08/29/2024 1:00 PM EST COLONOSCOPY, DIAGNOSTIC (WRVU 3.26) Irritable bowel syndrome with constipation 08/29/2024 1:00 PM EST documented as of this encounter Visit Diagnoses Diagnosis Mixed hyperlipidemia Irritable bowel syndrome with constipation Irritable bowel syndrome documented in this encounter Care Teams Metal Storage Worker Relationship Specialty Start Date End Date Luis E Narayan MD [facility] DR LILI [place] [address] PCP - General Family Medicine 03/26/19 01/19/22 documented as of this encounter
--- OUTSIDE RECORDS SUMMARY | 2024-08-20 16:00 | XMS_ITS | Encounter Summary ---
Author Organization [facility] [place] [address] Care Team Providers Care Wheel Mill Operator Name Role Phone Luis E Narayan MD Primary Care Provider [phone]- [phone] Reason for Visit * Reason Comments Post Op Encounter Details Date Type Department Care Team (Late st Contact Info) Description 07/02/2020 1:45 PM EST [place] [address] Juanpablo Hernandez MD [facility] [place] [address] Malignant melanoma of conjunctiva, left Social History [...] 1:00 PM EST Hospital Encounter Gastroenterology at [place] [phone] Roland Gooden MD [facility] [place] [address] 08/29/2024 1:00 PM EST - 08/29/2024 2:00 PM EST Surgery Gastroenterology at [place] [phone] Roland Gooden MD [facility] [place] [address] EGD, UPPER GI ENDOSCOPY (WRVU 2.09) 10/02/2024 1:00 PM EDT Office Visit Ophthalmology at [place] [phone] Juanpablo Hernandez MD [facility] [place] [address] 10/21/2024 9:30 AM EDT Office Visit Internal Medicine at [address] [phone] Daryn Garrett MD [facility] DR LILI [place] [address] 01/30/2025 1:30 PM EDT Laboratory Appointment Lab at [facility] [place] Oncology [address] [place] [phone] 01/30/2025 3:[address] [place] [address] Arturo Cordero MD [facility] H[place]AT[place] [address] 01/30/2025 4:15 PM EDT Office Visit [place] [address] Arturo Cordero MD [facility] [place] [address] Scheduled Procedures Name Priority Associated Diagnoses Date/Ti me EGD, UPPER GI ENDOSCOPY (WRVU 2.09) Irritable bowel syndrome with constipation 08/29/2024 1:00 PM EST COLONOSCOPY, DIAGNOSTIC (WRVU 3.26) Irritable bowel syndrome with constipation 08/29/2024 1:00 PM EST documented as of this encounter Visit Diagnoses Diagnosis Malignant melanoma of conjunctiva, left Irritable bowel syndrome with constipation Irritable bowel syndrome documented in this encounter Care Teams Wheel Mill Operator Relationship Specialty Start Date End Date Luis E Narayan MD [facility] DR LIIL W[place]ER[place] [address] PCP - General Family Medicine 03/26/19 01/19/22 documented as of this encounter
--- OUTSIDE RECORDS SUMMARY | 2024-08-20 16:00 | XMS_ITS | Encounter Summary ---
Author Organization [facility] [place] [address] Care Team Providers Care Wax Engraver Name Role Phone Luis E Narayan MD Primary Care Provider +1- [phone] Encounter Details Date Type Department Care Team (Late st Contact Info) Description 08/17/2020 External Results [place] [phone] Social History Tobacco Use Types Packs/Day Years [...] 1:00 PM EST Hospital Encounter [place] [phone] Roland Gooden MD [facility] [place] [address] 08/29/2024 1:00 PM EST - 08/29/2024 2:00 PM EST Surgery [place] [phone] Roland Gooden MD [facility] [place] [address] EGD, UPPER GI ENDOSCOPY (WRVU 2.09) 10/02/2024 1:00 PM EDT Office Visit Ophthalmology at [place] [phone] Juanpablo Hernandez MD [facility] [place] [address] 10/21/2024 9:30 AM EDT Office Visit Internal Medicine at [address] [place] [phone] Daryn Garrett MD [facility] DR LILI [place] [address] 01/30/2025 1:30 PM EDT Laboratory Appointment Lab at [facility] [place]ology Oncology [address] [place] [phone] 01/30/2025 3:[address] Scan at [place] [phone] Arturo Cordero MD [facility] [place] [address] 01/30/2025 4:15 PM EDT Office Visit Hematology [place] [phone] Arturo Cordero MD [facility] [place] [address] Scheduled Procedures Name Priority Associated Diagnoses Date/Ti [...] Doc: ECG (08/17/2020) Historical Provider MD CAMARGO MGJean SCAN EX T ORDR/RSLT documented in this encounter Visit Diagnoses Not on filedocumented in this encounter Care Teams Wax Engraver Relationship Specialty Start Date End Date Luis E Narayan MD [facility] [address] [place] [address] PCP - General Family Medicine 03/26/19 01/19/22 documented as of this encounter
--- OUTSIDE RECORDS SUMMARY | 2024-08-20 16:00 | XMS_ITS | Encounter Summary ---
Author Organization [facility] [place] [address] Care Team Providers Care Engagement Director Name Role Phone Luis E Narayan MD Primary Care Provider Encounter Details Date Type Department Care Team (Late st Contact Info) Description 08/24/2020 Telephone Internal Medicine at [facility] [address] [place] [phone] Debbie Brice, CCMA Social History Tobacco Use [...] 1:00 PM EST Hospital Encounter [place] [phone] Roland Gooden MD [facility] [place] [address] 08/29/2024 1:00 PM EST - 08/29/2024 2:00 PM EST Surgery Gastroenterology at [place] [phone] oRland Gooden MD [facility] [place] [address] EGD, UPPER GI ENDOSCOPY (WRVU 2.09) 10/02/2024 1:00 PM EDT Office Visit Ophthalmology at [place] [phone] Juanpablo Hernandez MD [facility] [place] [address] 10/21/2024 9:30 AM EDT Office Visit Internal Medicine at [address] [phone] Daryn Garrett MD [facility] DR LILI [place]ER [place] [address] 01/30/2025 1:30 PM EDT Laboratory Appointment Lab at [facility] Hematology Oncology [address] [place], [place] [phone] 01/30/2025 3:[address] Scan at [place] [phone] Arturo Cordero MD [facility] HEMATOLOGY [place] [address] 01/30/2025 4:15 PM EDT Office Visit Hematology and Oncology at [place] [phone] Arturo Cordero MD [facility] HEMATOLOGY [place] [address] Scheduled Procedures Name Priority Associated Diagnoses Date/Ti me EGD, UPPER GI ENDOSCOPY (WRVU 2.09) Irritable bowel syndrome with constipation 08/29/2024 1:00 PM EST COLONOSCOPY, DIAGNOSTIC (WRVU 3.26) Irritable bowel syndrome with constipation 08/29/2024 1:00 PM EST documented as of this encounter Visit Diagnoses Not on filedocumented in this encounter Care Teams Engagement Director Relationship Specialty Start Date End Date Luis E Narayan MD [facility] [address] [place] [address] PCP - General Family Medicine 03/26/19 01/19/22 documented as of this encounter
--- OUTSIDE RECORDS SUMMARY | 2024-08-20 16:00 | XMS_ITS | Encounter Summary ---
Author Organization [facility] Address [facility] [place] [address] Care Team Providers Care Collections Specialist Name Role Phone Luis E Narayan MD Primary Care Provider Reason for Visit * Reason Comments Follow-up Encounter Details Date Type Department Care Team (Late st Contact Info) Description 07/31/2020 3:15 PM EST Office [place] [address] Juanpablo Hernandez MD [facility] [place] [address] Malignant melanoma of conjunctiva, left Social History [...] 1:00 PM EST Hospital Encounter Gastroenterology at [place] [phone] Roland Gooden MD [facility] [place] [address] 08/29/2024 1:00 PM EST - 08/29/2024 2:00 PM EST Surgery Gastroenterology at [place] [phone] Roland Gooden MD [facility] [place] [address] EGD, UPPER GI ENDOSCOPY (WRVU 2.09) 10/02/2024 1:00 PM EDT Office Visit Ophthalmology at [place] [phone] Juanpablo Hernandez MD [facility] [place] [address] 10/21/2024 9:30 AM EDT Office Visit Internal Medicine at [address] [phone] Daryn Garrett MD [facility] [address] 01/30/2025 1:30 PM EDT Laboratory Appointment Lab at [facility] Hematology Oncology [address] [place] [phone] 01/30/2025 3:[address] [place] [phone] Arturo Cordero MD [facility] [place] [address] 01/30/2025 4:15 PM EDT Office Visit H[place]ology [place] [address] Arturo Cordero MD [facility] [place] [address] Scheduled Procedures Name Priority Associated Diagnoses Date/Ti me EGD, UPPER GI ENDOSCOPY (WRVU 2.09) Irritable bowel syndrome with constipation 08/29/2024 1:00 PM EST COLONOSCOPY, DIAGNOSTIC (WRVU 3.26) Irritable bowel syndrome with constipation 08/29/2024 1:00 PM EST documented as of this encounter Visit Diagnoses Diagnosis Malignant melanoma of conjunctiva, left Irritable bowel syndrome with constipation Irritable bowel syndrome documented in this encounter Care Teams Collections Specialist Relationship Specialty Start Date End Date Luis E Narayan MD [facility] [address] [place] [address] PCP - General Family Medicine 03/26/19 01/19/22 documented as of this encounter
--- OUTSIDE RECORDS SUMMARY | 2024-08-20 16:00 | XMS_ITS | Encounter Summary ---
Author Organization [facility] Address [facility] [place] [address] Care Team Providers Care Safety Officer Name Role Phone Luis E Narayan MD Primary Care Provider +1- [phone] Encounter Details Date Type Department Care Team (Late st Contact Info) Description 08/07/2020 Telephone [place] [phone] Malika Ye Social History Tobacco Use Types [...] PM EST Hospital Encounter [place] [phone] Roland Gooden MD [facility] [place] [address] 08/29/2024 1:00 PM EST - 08/29/2024 2:00 PM EST Surgery [place] [phone] Roland Gooden MD [facility] [place] [address] EGD, UPPER GI ENDOSCOPY (WRVU 2.09) 10/02/2024 1:00 PM EDT Office Visit Ophthalmology at [place] [phone] Juanpablo Hernandez MD [facility] [place] [address] 10/21/2024 9:30 AM EDT Office Visit Internal Medicine at [address] [place] [phone] Daryn Garrett MD [facility] DR [place] [address] 01/30/2025 1:30 PM EDT Laboratory Appointment Lab at [facility] Hematology Oncology [address] [place] [phone] 01/30/2025 3:[address] Scan at [place] [phone] Arturo Cordero MD [facility] [place] [address] 01/30/2025 4:15 PM EDT Office Visit Hematology [place] [phone] Arturo Cordero MD [facility] [place] [address] Scheduled Procedures Name Priority Associated Diagnoses Date/Ti wy EGD, UPPER GI ENDOSCOPY (WRVU 2.09) Irritable bowel syndrome with constipation 08/29/2024 1:00 PM EST COLONOSCOPY, DIAGNOSTIC (WRVU 3.26) Irritable bowel syndrome with constipation 08/29/2024 1:00 PM EST documented as of this encounter Visit Diagnoses Not on filedocumented in this encounter Care Teams Safety Officer Relationship Specialty Start Date End Date Luis E Narayan MD [facility] DR LIL[facility] [place] [address] PCP - General Family Medicine 03/26/19 01/19/22 documented as of this encounter
--- OUTSIDE RECORDS SUMMARY | 2024-08-20 16:00 | XMS_ITS | Encounter Summary ---
Author Organization [facility] Address [facility] [place] [address] Care Team Providers Care [employer]icon[employer] Packages Platemaker Name Role Phone Luis E Narayan MD Primary Care Provider +1- [phone] Reason for Visit * Reason Onset Date Comments Triage 09/14/2020 Encounter Details Date Type Department Care Team (Late st Contact Info) Description 09/14/2020 Telephone Family Medicine at [facility] [address] [place] [address] Wendy [place] Triage Social History Tobacco Use [...] Miscellaneous Notes * Telephone Encounter - Thomas yTson RN - 09/14/2020 8:46 AM EST Chief [...] month, got a negative COVID Test at [facility] when the symptoms when started. Patient denies all urgent signs and symptoms at this time. Patient requested appointment on 09/15/20 to coordinate with other appointments. Appointment scheduled with Leora COLVIN on 09/15/20 @ 3947. Patient reported understanding and agrees to plan [...] up for Chest Pain. Left message on [employer] voicemail to call back. * Telephone Encounter - Wendy [place] - 09/14/2020 8:16 AM EST Please call patient to discuss Emergency Room Follow Up Reason for the Emergency Room visit: Chest Pain Name of the facility where patient was seen: [facility] Symptomatic now: y Other information:Pt states [...] 1:00 PM EST Hospital En[place] [phone] Roland Gooden MD [facility] [place] [address] 08/29/2024 1:00 PM EST - 08/29/2024 2:00 PM EST [place] [phone] Roland Gooden MD [facility] [place] [address] EGD, UPPER GI ENDOSCOPY (WRVU 2.09) 10/02/2024 1:00 PM EDT Office [place] [phone] Juanpablo Hernandez MD [facility] [place] [address] 10/21/2024 9:30 AM EDT Office Visit Internal Medicine at [place] [address] [place] [address] Daryn Garrett MD [facility] DR LILI [place] [address] 01/30/2025 1:30 PM EDT Laboratory Appointment Lab at [facility] Hematology Oncology [address] [place] [phone] 01/30/2025 3:[address] [place] [phone] Arturo Cordero MD [facility] [place] [address] 01/30/2025 4:15 PM EDT Office Visit Hematology [place] [phone] Arturo Cordero MD [facility] DR [place] [address] Scheduled Procedures Name Priority Associated Diagnoses Date/Ti me EGD, UPPER GI ENDOSCOPY (WRVU 2.09) Irritable bowel syndrome with constipation 08/29/2024 1:00 PM EST COLONOSCOPY, DIAGNOSTIC (WRVU 3.26) Irritable bowel syndrome with constipation 08/29/2024 1:00 PM EST documented as of this encounter Visit Diagnoses Not on filedocumented in this encounter Care Teams Semiconductor Packages Platemaker Relationship Specialty Start Date End Date Luis E Narayan MD [facility] DR LILI W[place] [address] PCP - General Family Medicine 03/26/19 01/19/22 documented as of this encounter
--- OUTSIDE RECORDS SUMMARY | 2024-08-20 16:00 | XMS_ITS | Encounter Summary ---
[place] [address] Care Team Providers Care Back Padder Name Role Phone Luis E Narayan MD Primary Care Provider Reason for Visit * Reason Onset Date Comments Prior Authorization 06/29/2020 nicotine (NI COTROL) 10 mg Cartridge Encounter Details Date Type Department Care Team (Late st Contact Info) Description 06/29/2020 Telephone Family Medicine at [facility] [address] [place] [phone] Aida Aguayo CMA Prior Authorization (nicotine (NICOTROL) [...] Authorization for Primary [place] [address] DENIED: Nicotrol Case/Reference #: [id number] Additional Information from Insurance: The patient has [...] Authorization for Primary [place] [address] Request received via: [employer] Patient: Alize Gramajo Patient : 1960 Insurance Company: [place] Sent via: [employer] Bingo Anderson: [id number] Physician: Luis E Narayan MD Medication Requested: [...] 1:00 PM EST Hospital En[place] [phone] [facility] [place] [address] 08/29/2024 1:00 PM EST - 08/29/2024 2:00 PM EST [place] [phone] [facility] [place] [address] EGD, UPPER GI ENDOSCOPY (WRVU 2.09) 10/02/2024 1:00 PM EDT Office Visit Ophthalmology at [place] [phone] [facility] [place] [address] 10/21/2024 9:30 AM EDT Office Visit Internal Medicine at [address] [phone] [facility] [place] [address] 01/30/2025 1:30 PM EDT Laboratory Appointment Lab at [facility] Hematology Oncology [address] [place] [phone] 01/30/2025 3:[address] Scan at [place] [phone] [facility] HEMATOLOGY [place] [address] 01/30/2025 4:15 PM EDT Office Visit Hematology [place] [phone] [facility] DR HEMATOLOGY [place] [address] Scheduled Procedures Name Priority Associated Diagnoses Date/Ti me EGD, UPPER GI ENDOSCOPY (WRVU 2.09) Irritable bowel syndrome with constipation 08/29/2024 1:00 PM EST COLONOSCOPY, DIAGNOSTIC (WRVU 3.26) Irritable bowel syndrome with constipation 08/29/2024 1:00 PM EST documented as of this encounter Visit Diagnoses Not on filedocumented in this encounter Care Teams Back Padder Relationship Specialty Start Date End Date Luis E Narayan MD [facility] DR LILI WALKER[place] [address] PCP - General Family Medicine 03/26/19 01/19/22 documented as of this encounter
--- OUTSIDE RECORDS SUMMARY | 2024-08-20 16:00 | XMS_ITS | Encounter Summary ---
Author Organization [facility] [place] [address] Care Team Providers Care Shank Maker Name Role Phone Luis E Narayan MD Primary Care Provider [phone] Reason for Referral * Diagnostic Test (Routine) - Closed Specialty Diagnoses / Procedures Referred By Contac t Referred To Contact Radiology Diagnoses Malignant melanoma of conjunctiva, left Procedures CT Neck Soft Tissue w Contrast (Generic) Arturo Cordero MD [facility] [address] [place] [address] [facility] [place] [address] Referral ID Status Reason Start Date Expiration Date V isits Requested Visits Authorized [id number] Closed Specialty Service Requested 09/15/2020 03/18/2022 1 1 * Diagnostic Test (Routine) - Closed Specialty Diagnoses / Procedures Referred By Contac t Referred To Contact Radiology Diagnoses Malignant melanoma of conjunctiva, left Procedures CT Chest Abdomen Pelvis w Contrast (Generic) Arturo Cordero MD [facility] [address] [place] [address] [facility] [place] [address] Referral ID Status Reason Start Date Expiration Date V isits Requested Visits Authorized [id number] Closed Specialty Service Requested 09/15/2020 03/18/2022 1 1 Reason for Visit * Reason Comments Follow-up Encounter Details Date Type Department Care Team (Late st Contact Info) Description 09/15/2020 11:30 AM EST Office Visit Hematology [place] [address] Artuor Cordero MD [facility] [address] [place] [address] Leandra Lopes APRN [facility] [place] [address] Malignant melanoma of conjunctiva, left Social History [...] management - fall 2018: saw a new stopboard assembler and was referred to Dr. 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 Medina - 03/31/2020: saw her stopboard assembler Dr. Hernandez and was noted to have [...] uses inhalerswith good effect ??? 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 PRO EXCIS CORNEA LESN Left 05/14/2020 EXCISION OF LESION, CORNEA, EXCEPT PTERYGIUM (WRVU 7.5) performed by Juanpablo Hernandez MD at [facility] ??? PRO LAP, PARTIAL NEPHRECTOMY Left 06/28/2019 LAPAROSCOPY, PARTIAL NEPHRECTOMY, ROBOTIC ASSIST (WRVU 27.41) performed by Avila Medina MD at [facility] MAIN OR ??? 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 [...] 1:00 PM EST Hospital Encounter [place] [address] Roland Gooden MD [facility] [place] [address] 08/29/2024 1:00 PM EST - 08/29/2024 2:00 PM EST Surgery Gastroenterology at [place] [phone] Roland Gooden MD [facility] [place] [address] EGD, UPPER GI ENDOSCOPY (WRVU 2.09) 10/02/2024 1:00 PM EDT Office [place] [phone] Juanpablo Hernandez MD [facility] [place] [address] 10/21/2024 9:30 AM EDT Office Visit Internal Medicine at [address] [phone] Daryn Garrett MD [facility] DR LILI WALKER - PRIMARY CARE [place], [place] [address] 01/30/2025 1:30 PM EDT Laboratory Appointment Lab at [facility] Hematology Oncology [address] [place] [phone] 01/30/2025 3:[address] [place] [address] Arturo Cordero MD [facility] [address] [place] [address] 01/30/2025 4:15 PM EDT Office Visit Hematology and Oncology at [facility] [place] [address] Arturo Cordero MD [facility] [address] [place] [address] Scheduled Procedures Name Priority Associated Diagnoses Date/Ti [...] who have questions please contact the health auto care center manager that requested your imaging first. ? Electronically signed by: Clarisa Rajput MD, [facility] ([phone]), at 12/18/2020 9:41 AM Narrative 12/18/2020 9:41 [...] patients who have questions please contactthe health auto care center manager that requested your imaging first. Electronically signed by: Clarisa Rajput MD, [facility]([phone]), at 12/18/2020 9:41 AM Arturo Cordero MD [...] who have questions please contact the health auto care center manager that requested your imaging first. ? Electronically signed by: Juanpablo Chris MD, [facility] ([phone]), at 12/17/2020 4:53 PM Narrative 12/17/2020 4:53 [...] patients who have questions please contactthe health auto care center manager that requested your imaging first. Arturo Cordero MD IMG CT ORDERABLES * Lactate Dehydrogenase (12/17/2020 12:45 PM EDT) Lactate Dehydrogenase 205 110 - 220 unit/L [facility] Blood 12/17/2020 12:4 5 PM EDT 12/17/2020 12:51 PM EDT Narrative Resulting Agency Comment Spec In Lab Arturo Cordero MD CHEMISTRY ORDERABLES [facility] [place] [address] * (ABNORMAL) Comprehensive metabolic panel (non-fasting) (12/17/2020 [...] In Lab Atruro Cordero MD CHEMISTRY ORDERABLES [facility] [place] [address] documented in this encounter Visit Diagnoses Diagnosis Malignant melanoma of conjunctiva, left Malignant melanoma of conjunctiva, left Irritable bowel syndrome with constipation Irritable bowel syndrome documented in this encounter Care Teams Shank Maker Relationship Specialty Start Date End Date Luis E Narayan MD [facility] DR LILI [place] [address] PCP - General Family Medicine 03/26/19 01/19/22 documented as of this encounter
--- OUTSIDE RECORDS SUMMARY | 2024-08-20 16:01 | XMS_ITS | Encounter Summary ---
[place] [address] Care Team Providers Care Pipe Turner Name Role Phone Luis E Narayan MD Primary Care Provider [phone]- [phone] Reason for Visit * Reason Onset Date Comments Medication Refill 05/25/2020 Encounter Details Date Type Department Care Team (Late st Contact Info) Description 05/25/2020 Refill Family Medicine at [facility] [address] [place] [address] Bonny Emanuel MD [address] [place] [address] Essential hypertension Social History Tobacco Use Types [...] 1:00 PM EST Hospital Encounter [place] [address] Roland Gooden MD [facility] [place] [address] 08/29/2024 1:00 PM EST - 08/29/2024 2:00 PM EST Surgery Gastroenterology at [place] [phone] Roland Gooden MD [facility] [place] [address] EGD, UPPER GI ENDOSCOPY (WRVU 2.09) 10/02/2024 1:00 PM EDT Office Visit Ophthalmology at [place] [phone] Juanpablo Hernandez MD [facility] [place] [address] 10/21/2024 9:30 AM EDT Office Visit Internal Medicine at [address] [phone] Daryn Garrett MD [facility] DR LILI W[place]ER [place] [address] 01/30/2025 1:30 PM EDT Laboratory Appointment Lab at [facility] Hematology Oncology [address] [place], [place] [phone] 01/30/2025 3:[address] Scan at [place] [phone] Arturo Cordero MD [facility] HEMATOLOGY [place] [address] 01/30/2025 4:15 PM EDT Office Visit Hematology [place] [address] Arturo Cordero MD [facility] HEMATOLOGY [place] [address] Scheduled Procedures Name Priority Associated Diagnoses Date/Ti me EGD, UPPER GI ENDOSCOPY (WRVU 2.09) Irritable bowel syndrome with constipation 08/29/2024 1:00 PM EST COLONOSCOPY, DIAGNOSTIC (WRVU 3.26) Irritable bowel syndrome with constipation 08/29/2024 1:00 PM EST documented as of this encounter Visit Diagnoses Diagnosis Essential hypertension Unspecified essential hypertension Irritable bowel syndrome with constipation Irritable bowel syndrome documented in this encounter Care Teams Pipe Turner Relationship Specialty Start Date End Date Luis E Narayan MD [facility] [address] [place] [address] PCP - General Family Medicine 03/26/19 01/19/22 documented as of this encounter
--- OUTSIDE RECORDS SUMMARY | 2024-08-20 16:01 | XMS_ITS | Encounter Summary ---
Author Organization [facility] Address [facility] [place] [address] Care Team Providers Care Receiving Room Clerk Name Role Phone Luis E Narayan MD Primary Care Provider [phone]- [phone] Reason for Visit * Reason Comments Post Op Encounter Details Date Type Department Care Team (Late st Contact Info) Description 06/16/2020 8:30 AM EST Office [place] [address] Juanpablo Hernandez MD [facility] [place] [address] Malignant melanoma of conjunctiva, left Social History [...] 1:00 PM EST Hospital Encounter [place] [phone] Roland Gooden MD [facility] [place] [address] 08/29/2024 1:00 PM EST - 08/29/2024 2:00 PM EST [place] [phone] Roland Gooden MD [facility] [place] [address] EGD, UPPER GI ENDOSCOPY (WRVU 2.09) 10/02/2024 1:00 PM EDT Office [place] [phone] Juanpablo Hernandez MD [facility] [place] [address] 10/21/2024 9:30 AM EDT Office Visit Internal Medicine at [place] [address] [place] [phone] Daryn Garrett MD [facility] DR LILI [place] [address] 01/30/2025 1:30 PM EDT Laboratory Appointment Lab at [facility] Hematology Oncology [address] [place] [phone] 01/30/2025 3:[address] [place] [address] Arturo Cordero MD [facility] [place] [address] 01/30/2025 4:15 PM EDT Office Visit Hematology [place] [address] Arturo Cordero MD [facility] [place] [address] Scheduled Procedures Name Priority Associated Diagnoses Date/Ti [...] documented in this encounter Care Teams Receiving Room Clerk Relationship Specialty Start Date End Date Luis E Narayan MD [facility] DR LILI [place] [address] PCP - General Family Medicine 03/26/19 01/19/22 documented as of this encounter
--- OUTSIDE RECORDS SUMMARY | 2024-08-20 16:01 | XMS_ITS | Encounter Summary ---
[place] [address] Care Team Providers Care Nitroglycerin Separator Operator Name Role Phone Luis E Narayan MD Primary Care Provider Encounter Details Date Type Department Care Team (Late st Contact Info) Description 05/11/2020 Telephone Family Medicine at [facility] [address] [place] [phone] Thania Flores RN Social History Tobacco Use [...] 1:00 PM EST Hospital [place] [address] Roland Gooden MD [facility] [place] [address] 08/29/2024 1:00 PM EST - 08/29/2024 2:00 PM EST [place] [address] Roland Gooden MD [facility] [place] [address] EGD, UPPER GI ENDOSCOPY (WRVU 2.09) 10/02/2024 1:00 PM EDT Office [place] [phone] Juanpablo Hernandez MD [facility] [place] [address] 10/21/2024 9:30 AM EDT Office Visit Internal Medicine at [address] [phone] Daryn Garrett MD [facility] DR LILI WALKER - [place] [address] 01/30/2025 1:30 PM EDT Laboratory Appointment Lab [place] [facility] [place] [address] [place] [phone] 01/30/2025 3:[address] [place] [place] [phone] Arturo Cordero MD [facility] DR HEMATOLOGY [place] [address] 01/30/2025 4:15 PM EDT Office Visit [place] [phone] Arturo Cordero MD [facility] DR HEMATOLOGY [place] [address] Scheduled Procedures Name Priority Associated Diagnoses Date/Ti me EGD, UPPER GI ENDOSCOPY (WRVU 2.09) Irritable bowel syndrome with constipation 08/29/2024 1:00 PM EST COLONOSCOPY, DIAGNOSTIC (WRVU 3.26) Irritable bowel syndrome with constipation 08/29/2024 1:00 PM EST documented as of this encounter Visit Diagnoses Not on filedocumented in this encounter Care Teams Nitroglycerin Separator Operator Relationship Specialty Start Date End Date Luis E Narayan MD [facility] [address]-[place] [address] PCP - General Family Medicine 03/26/19 01/19/22 documented as of this encounter
--- OUTSIDE RECORDS SUMMARY | 2024-08-20 16:01 | XMS_ITS | Encounter Summary ---
Author Organization [facility] [address] Care Team Providers Care Mission Commander Name Role Phone Luis E Narayan MD Primary Care Provider Reason for Referral * Diagnostic Test (Routine) - Closed Specialty Diagnoses / Procedures Referred By Contac t Referred To Contact Radiology Diagnoses Ocular melanoma, left Procedures MRI Brain wwo Contrast (Generic) Sri Frederick MD [facility] DR HEMATOLOGY/[place] [address] [place] [address] Referral ID Status Reason Start Date Expiration Date V isits Requested Visits Authorized [id number] Closed Specialty Service Requested 05/26/2020 11/23/2021 1 1 Reason for Visit * Diagnostic Test (Routine) - Closed Specialty Diagnoses / Procedures Referred By Gonzalez kumari Referred To Contact Radiology Diagnoses Ocular melanoma, left Procedures MRI Brain wwo Contrast (Generic) Sir Frederick MD [facility] HEMATOLOGY/[place] [address] [place] [address] Referral ID Status Reason Start Date Expiration Date V isits Requested Visits Authorized [id number] Closed Specialty Service Requested 05/26/2020 11/23/2021 1 1 Encounter Details Date Type Department Care Team (Latest Contact Info) Description 06/12/2020 2:05 PM EST - 06/12/2020 3:31 PM EST Hospital Encounter MRI at [facility] [place] [address] Arturo Cordero MD [facility] DR HEMATOLOGY [place] [address] Ocular melanoma, left Discharge Disposition: Home Social [...] 08/05/2019 06/14/2021 fluticasone propionate (FLONASE) 50 mcg/actuation [place], Suspension 1 spray by Each Nare route [...] 1:00 PM EST Hospital Encounter Gastroenterology at [place] [phone] Roland Gooden MD [facility] [place] [address] 08/29/2024 1:00 PM EST - 08/29/2024 2:00 PM EST Surgery Gastroenterology at [place] [phone] Roland Gooden MD [facility] [place] [address] EGD, UPPER GI ENDOSCOPY (WRVU 2.09) 10/02/2024 1:00 PM EDT Office Visit Ophthalmology at [place] [phone] Juanpablo Hernandez MD [facility] [place] [address] 10/21/2024 9:30 AM EDT Office Visit Internal Medicine at [address] [phone] Daryn Garrett MD [facility] DR LILI WALKER [place] [address] 01/30/2025 1:30 PM EDT Laboratory Appointment Lab [place] [facility] [place] [address] [place] [phone] 01/30/2025 3:[address] [place] [phone] Arturo Cordero MD [facility] HEMATOLOGY [place] [address] 01/30/2025 4:15 PM EDT Office Visit Hematology and Oncology at [place] [phone] Arturo Cordero MD [facility] DR HEMATOLOGY [place] [address] Scheduled Procedures Name Priority Associated Diagnoses Date/Ti [...] mLs documented in this encounter Care Teams Mission Commander Relationship Specialty Start Date End Date Luis E Narayan MD [facility] DR LILI WALKER[place] [address] PCP - General Family Medicine 03/26/19 01/19/22 documented as of this encounter
--- OUTSIDE RECORDS SUMMARY | 2024-08-20 16:01 | XMS_ITS | Encounter Summary ---
Author Organization [facility] [address] Care Team Providers Care Genetics Physician Name Role Phone Luis E Narayan MD Primary Care Provider [phone] Reason for Referral * Consultation (Urgent) - Closed Specialty Diagnoses / Procedures Referred By Gonzalez kumari Referred To Contact Hematology and Oncology Diagnoses Conjunctival tumor Juanpablo [place] MD [facility] [place] [place] [address] [facility] Hem Onc [address] [place] [address] Referral ID Status Reason Start Date Expiration Date V isits Requested Visits Authorized [id number] Closed Consult, Test & Treat 05/19/2020 05/19/2021 1 1 Reason for Visit * Reason Comments Post Op Encounter Details Date Type Department Care Team (Late st Contact Info) Description 05/19/2020 10:15 AM EST Office [place] [phone] Juanpablo [place] MD [facility] [place] [place] [address] Conjunctival tumor; Malignant melanoma of conjunctiva, left [...] to epithelium. Sp[facility] with [facility]. Gordon at [facility] in a general way about this case. [...] EST Hospital Encounter [place] [phone] Roland Gooden MD [facility] [place] [address] 08/29/2024 1:00 PM EST - 08/29/2024 2:00 PM EST Surgery Gastroenterology at [place] [phone] Roland Gooden MD [facility] [place] [address] EGD, UPPER GI ENDOSCOPY (WRVU 2.09) 10/02/2024 1:00 PM EDT Office Visit Ophthalmology at [place] [phone] Juanpablo [place] MD [facility] [place] [address] 10/21/2024 9:30 AM EDT Office Visit Internal Medicine at [address] [phone] Daryn Garrett MD [facility] [address] LIL[place] [address] 01/30/2025 1:30 PM EDT Laboratory Appointment Lab [place] [facility] [place] [address] [place] [phone] 01/30/2025 3:[address] [place] [phone] Arturo Cordero MD [facility] [place] [address] 01/30/2025 4:15 PM EDT Office Visit Hematology [place] [address] Arturo Cordero MD [facility] [place] [address] Scheduled Procedures Name Priority Associated Diagnoses Date/Ti [...] specified sites Malignant melanoma of conjunctiva, left Irritable bowel syndrome with constipation Irritable bowel syndrome documented in this encounter Care Teams Genetics Physician Relationship Specialty Start Date End Date Luis E Narayan MD [facility] [address] LILI [place] [address] PCP - General Family Medicine 03/26/19 01/19/22 documented as of this encounter
--- OUTSIDE RECORDS SUMMARY | 2024-08-20 16:01 | XMS_ITS | Encounter Summary ---
[place] [address] Care Team Providers Care Mutual Fund Analyst Name Role Phone Luis E Narayan MD Primary Care Provider Reason for Visit * Auth/Cert Specialty Diagnoses / Procedures Referred By Gonzalez kumari Referred To Contact Diagnoses Pigmented large conjunctival lesion Procedures PRO EXCIS CORNEA LESN EXCISION OF LESION, CORNEA, EXCEPT PTERYGIUM (WRVU 7.5) Referral ID Status Reason Start Date Expiration Date Visits Re quested Visits Authorized [id number] 1 1 Encounter Details Date Type Department Care Team (Late st Contact Info) Description 05/14/2020 12:00 PM EST - 05/14/2020 12:55 PM EST Surgery [facility] [place] [address] Mert [place] MD [facility] [place] [address] EXCISION OF LESION, CORNEA, EXCEPT PTERYGIUM (WRVU [...] surgery Mert [place] MD Section of ophthalmology [facility] [phone] - Keep your eye patched, shielded, clean and dry overnight. The patch will be removed during your follow up visit with Dr. [place] tomorrow. - The surgery center nurses should confirm time of your follow up appointment for tomorrow with . This appointment will be at the Eye Clinic in the main building at [facility]. - Mild discomfort is normal, but if you have any severe eye pain or bleeding call [phone] and ask to speak to the eye doctor tanning salon attendant. - Call your Primary Care Doctor or [...] patient was questioned regarding travel outside of [place] states, fever, cough, SOB or other illness [...] again, temperature will be taken, patient and caregiver/street flusher driver will be given a mask to wear the entire time they are in the [facility] building. * Grecia Lamb RN - 05/11/2020 9:20 AM EST During this call the patient was questioned regarding travel outside of [facility], fever, cough, SOB or other illness [...] again, temperature will be taken, patient and caregiver/street flusher driver will be given a mask to [...] [place] MD - 05/14/2020 1:14 PM EST [facility] Operative Note Patient Name: Alize Gramajo : [id number] MR#: [id number] Case Date: 05/14/2020 Surgeon: Surgeon(s) and Role: [...] 2 mL Surgical Staff/Assistants: Mert [place] M.D. ([id number]) * Preoperative Diagnosis: Limbal conjunctival tumor, left [...] 10 minutes prior to the surgerical incision. Ailze was prepared and draped in the usual [...] fresh instruments were obtained.The amniotic membrane donor [id number] from [employer] was applied to the scleral bed and [...] 1:00 PM EST Hospital Encounter [place] [phone] Roland Gooden MD [facility] [place] [address] 08/29/2024 1:00 PM EST - 08/29/2024 2:00 PM EST Surgery Gastroenterology at [place] [phone] Roland Gooden MD [facility] [place] [address] EGD, UPPER GI ENDOSCOPY (WRVU 2.09) 10/02/2024 1:00 PM EDT Office Visit Ophthalmology at [place] [phone] Mert [place] MD [facility] [place] [address] 10/21/2024 9:30 AM EDT Office Visit Internal Medicine at [address] [phone] Daryn Garrett MD [facility] DR LILI WALKER [place] [address] 01/30/2025 1:30 PM EDT Laboratory Appointment Lab at [facility] Hematology Oncology [address] [place], [place] [phone] 01/30/2025 3:[address] Scan at [place] [phone] Arturo Coredro MD [facility] HEMATOLOGY [place] [address] 01/30/2025 4:15 PM EDT Office Visit Hematology and Oncology at [place] [phone] Arturo Cordero MD [facility] HEMATOLOGY [place] [address] Scheduled Procedures Name Priority Associated Diagnoses Date/Ti [...] Place Amniotic Membrane Ocular Surface;Single Layer Sutured ([id number]) 05/14/2020 12:04 PM EST Pigmented large conjunctival lesion Destr Corneal Lesn, Cryo, Photo, Therm ([id number]) 05/14/2020 12:04 PM EST Pigmented large conjunctival lesion Excis Cornea Lesn ([id number]) 05/14/2020 12:04 PM EST Pigmented large conjunctival lesion EXCISION OF LESION, CORNEA, EXCEPT PTERYGIUM Routine 05/14/2020 10:58 AM EST documented in this encounter Results * Specimen to Pathology (05/14/2020 12:47 PM EST) AP Specimen 05/14/2020 12:4 7 PM EST 05/14/2020 12:47 PM EST Narrative [facility] - 05/14/2020 12:47 PM EST Specimen requisition ordered. ??Separate Pathology report to follow Mert [place] MD PATHOLOGY/[place] [address] * Specimen to Pathology (05/14/2020 12:47 PM EST) AP Specimen 05/14/2020 12:4 7 PM EST 05/14/2020 12:47 PM EST Narrative [facility] - 05/14/2020 12:47 PM EST Specimen requisition ordered. ??Separate Pathology report to follow Mert [place] MD PATHOLOGY/[place] [address] * Specimen to Pathology (05/14/2020 12:47 PM EST) AP Specimen 05/14/2020 12:4 7 PM EST 05/14/2020 12:47 PM EST Narrative [facility] - 05/14/2020 12:47 PM EST Specimen requisition ordered. ??Separate Pathology report to follow Mert [place] MD PATHOLOGY/CYTOLOGY O [place] Performing Organization Address City[facility]/[place] [address] * Specimen to Pathology (05/14/2020 12:47 PM EST) AP Specimen 05/14/2020 12:4 7 PM EST 05/14/2020 12:47 PM EST Narrative [facility] - 05/14/2020 12:47 PM EST Specimen requisition ordered. ??Separate Pathology report to follow Mert [place] MD PATHOLOGY/[place] [address] * Solid Tumor NGS Panel (05/14/2020 12:40 PM EST) Tissue specimen (specimen) 05/14/2020 12:40 PM EST 06/01/2020 11:57 AM EST Narrative Resulting Agency Comment Spec In Lab Mert [place] MD PATHOLOGY/CYTOLOGY O [place]ISES [facility] [place] [address] * Surgical Pathology Report (05/14/2020 12:40 PM EST) Final Diagnosis [id number] ? Location: [facility] The signing pathologist has [...] PhD, Allen Verified: ??05/20/2020 ?Dermatopathologist Performed at: ??-[facility] Dept. of Pathology, [place], [place] DISCUSSION A( Left eye, conjunctiva excision) [...] x 0.1 cm. Tissue Description: Strip of red-parkisnon membranous tissue. Sections/Processing: Inked, bisected and entirely submitted in 1 cassette labeled D1. ??mayra 05/20/2020 3:13 PM EST [facility] SPECIMEN FROM SKIN / Unknown 05/14/2020 12:40 PM EST 05/14/2020 12:40 PM EST SPECIMEN FROM SKIN / Unknown 05/14/2020 12:40 PM EST 05/14/2020 12:40 PM EST SPECIMEN FROM SKIN / Unknown 05/14/2020 12:40 PM EST 05/14/2020 12:40 PM EST SPECIMEN FROM SKIN / Unknown 05/14/2020 12:40 PM EST 05/14/2020 12:40 PM EST Mert [place] MD PATHOLOGY/CYTOLOGY O RDERACELY [facility] [place] [address] documented in this encounter Visit Diagnoses Not [...] Surgery (Day of Procedure) 1124 ([facility] ider: Lashon Wick RN) PRN Medication [...] time) documented in this encounter Care Teams Mutual Fund Analyst Relationship Specialty Start Date End Date Luis E Narayan MD [facility] DR LILI WALKER[place] [address] PCP - General Family Medicine 03/26/19 01/19/22 documented as of this encounter
--- OUTSIDE RECORDS SUMMARY | 2024-08-20 16:01 | XMS_ITS | Encounter Summary ---
Author Organization [facility] Address [facility] [place] [address] Care Team Providers Care Reel Repairer Name Role Phone Luis E Narayan MD Primary Care Provider Reason for Visit * Reason Onset Date Comments Medication Refill 06/01/2020 Pred Forte to [facility] Encounter Details Date Type Department Care Team (Late st Contact Info) Description 06/01/2020 [place] [phone] Juanpablo [place] MD [facility] [place] [address] Conjunctival tumor Social History Tobacco Use Types [...] (Latest Contact Info) Description 08/29/2024 1:00 PM [facility] Hospital En[place] [phone] Roland Gooden MD [facility] [place] [address] 08/29/2024 1:00 PM EST - 08/29/2024 2:00 PM EST Surgery Gastroenterology at [place] [phone] Roland Gooden MD [facility] [place] [place] [address] EGD, UPPER GI ENDOSCOPY (WRVU 2.09) 10/02/2024 1:00 PM EDT Office Visit Ophthalmology at [place] [phone] Juanpablo [place] MD [facility] [place] [address] 10/21/2024 9:30 AM EDT Office Visit Internal Medicine at [address] [phone] Daryn Garrett MD [facility] DR LILI WALKER [place] [address] 01/30/2025 1:30 PM EDT Laboratory Appointment Lab at [facility] Hematology Oncology [address] [place], [place] [phone] 01/30/2025 3:[address] [place] [phone] Artuor Cordero MD [facility] HEMATOLOGY [place] [address] 01/30/2025 4:15 PM EDT Office Visit Hematology [place] [phone] Arturo Cordero MD [facility] HEMATOLOGY [place] [address] Scheduled Procedures Name Priority Associated Diagnoses Date/Ti me EGD, UPPER GI ENDOSCOPY (WRVU 2.09) Irritable bowel syndrome with constipation 08/29/2024 1:00 PM EST COLONOSCOPY, DIAGNOSTIC (WRVU 3.26) Irritable bowel syndrome with constipation 08/29/2024 1:00 PM EST documented as of this encounter Visit Diagnoses Diagnosis Conjunctival tumor Neoplasms of unspecified nature, other specified sites Irritable bowel syndrome with constipation Irritable bowel syndrome documented in this encounter Care Teams Reel Repairer Relationship Specialty Start Date End Date Luis E Narayan MD [facility] [address] [place] [address] PCP - General Family Medicine 03/26/19 01/19/22 documented as of this encounter
--- OUTSIDE RECORDS SUMMARY | 2024-08-20 16:01 | XMS_ITS | Encounter Summary ---
Author Organization [facility] [place] [address] Care Team Providers Care Cargo Agent Name Role Phone Luis E Narayan MD Primary Care Provider Reason for Referral * Diagnostic Test (Routine) - Closed Specialty Diagnoses / Procedures Referred By Contac t Referred To Contact Radiology Diagnoses Ocular melanoma, left Procedures MRI Brain wwo Contrast (Generic) Sri Frederick MD [facility] DR HEMATOLOGY/[place] [address] [facility] [place] [address] Referral ID Status Reason Start Date Expiration Date V isits Requested Visits Authorized [id number] Closed Specialty Service Requested 05/26/2020 11/23/2021 1 1 * Diagnostic Test (Routine) - Closed Specialty Diagnoses / Procedures Referred By Contac t Referred To Contact Radiology Diagnoses Ocular melanoma, left Renal cell cancer, left Procedures CT Chest Abdomen Pelvis w Contrast (Generic) Sri Frederick MD [facility] HEMATOLOGY/[place] [address] [facility] [place] [address] Referral ID Status Reason Start Date Expiration Date V isits Requested Visits Authorized [id number] Closed Specialty Service Requested 05/26/2020 11/23/2021 1 1 Reason for Visit * Reason Comments Follow-up * Consultation (Urgent) - Closed Specialty Diagnoses / Procedures Referred By Contac t Referred To Contact Hematology and Oncology Diagnoses Conjunctival tumor Juanpablo Hernandez MD [facility] [place] [address] [facility] Hem Onc [address] [place] [address] Referral ID Status Reason Start Date Expiration Date V isits Requested Visits Authorized [id number] Closed Consult, Test & Treat 05/19/2020 05/19/2021 1 1 Encounter Details Date Type Department Care Team (Late st Contact Info) Description 05/26/2020 2:00 PM EST Office Visit Hematology and Oncology at [place] [phone] Arturo Cordero MD [facility] [place] [address] Leandra Lopes APRN [facility] [place] [address] Sri Frederick MD Ocular melanoma, left (Primary Dx); Renal cell [...] - 05/26/2020 2:00 PM EST INITIAL VISIT [facility] NOTE REFERING PHYSICIAN: Dr. Juanpablo [...] management - fall 2018: saw a new cloud automation tester and was referred to Dr. 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 Medina - 03/31/2020: saw her cloud automation tester Dr. Hernandez and was noted to have [...] uses inhalerswith good effect ??? Atherosclerosis of [place] coronary artery of [place] heart with angina pectoris 10/09/2007 History of [...] 3.47) performed by Juanpablo Hernandez MD at [facility] ??? PRO EXCIS CORNEA LESN Left 05/14/2020 EXCISION OF LESION, CORNEA, EXCEPT PTERYGIUM (WRVU 7.5) performed by Juanpablo Hernandez MD at [facility] ??? PRO LAP, PARTIAL NEPHRECTOMY Left 06/28/2019 LAPAROSCOPY, PARTIAL NEPHRECTOMY, ROBOTIC ASSIST (WRVU 27.41) performed by Avila Medina MD at [facility] MAIN OR ??? 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 [...] 1:00 PM EST Hospital Encounter [place] [address] Roland Gooden MD [facility] [place] [address] 08/29/2024 1:00 PM EST - 08/29/2024 2:00 PM EST Surgery [place] [phone] Roland Gooden MD [facility] [place] [address] EGD, UPPER GI ENDOSCOPY (WRVU 2.09) 10/02/2024 1:00 PM EDT Office [place] [phone] Juanpablo Hernandez MD [facility] [place] [address] 10/21/2024 9:30 AM EDT Office Visit Internal Medicine at [address] [phone] Daryn Garrett MD [facility] DR LILI WALKER - [place] [address] 01/30/2025 1:30 PM EDT Laboratory Appointment Lab at [facility] Hematology Oncology [address] [place] [phone] 01/30/2025 3:[address] [place] [address] Arturo Cordero MD [facility] DR HEMATOLOGY [place] [address] 01/30/2025 4:15 PM EDT Office Visit Hematology [place] [address] Arturo Cordero MD [facility] DR HEMATOLOGY [place] [address] Scheduled Orders Name Type Priority Associated Diagnoses [...] contact the number below. Arturo Cordero MD [facility] MRI ORDERABLES * T4, free (06/12/2020 2:00 PM EST) Free T4 1.01 0.93 - 1.70 ng/dL [facility] Blood specimen (specimen) 06/12/2020 2:00 PM EST 06/12/2020 2:04 PM EST Narrative Resulting Agency Comment Spec In Lab Arturo Cordero MD CHEMISTRY ORDERABLES Performing Organization Address City/[facility]/ZIP Co de Phone Number [facility] [place] [address] * TSH (06/12/2020 2:00 PM EST) Thyroid Stimulating Hormone 2.53 0.27 - 4.20 mcIU/mL [facility] Blood specimen (specimen) 06/12/2020 2:00 PM EST 06/12/2020 2:04 PM EST Narrative Resulting Agency Comment Spec In Lab Arturo Cordero MD CHEMISTRY ORDERABLES Performing Organization Address [facility] Co de Phone Number [facility] [place] [address] * Lactate Dehydrogenase (06/12/2020 2:00 PM EST) Lactate Dehydrogenase 198 110 - 220 unit/L [facility] Blood specimen (specimen) 06/12/2020 2:00 PM EST 06/12/2020 2:04 PM EST Narrative Resulting Agency Comment Spec In Lab Arturo Cordero MD CHEMISTRY ORDERABLES Performing Organization Address [facility] Co de Phone Number [facility] [place] [address] * Comprehensive metabolic panel (non-fasting) (06/12/2020 2:00 PM EST) Glucose 166 65 - 199 mg/dL [facility] Comment:Diabetes: >=200 mg/d L plus symptoms Blood Urea Nitrogen 17 8 - 18 mg/dL [facility] Creatinine 0.92 0.70 - 1.20 mg/dL [facility] Sodium 140 135 - 145 mmol/L [facility] Potassium 4.3 3.5 - 5.0 mmol/L [facility] Comment: Please note: ??Patients with WBC >100,000 may have falsely elevated Potassium levels. ??For accurate Potassium quantification in these patients send serum separator tube (gold top) for subsequent determinations. ??Contact the Clinical Chemistry Laboratory if there are any questions. Chloride 104 98 - 107 mmol/L [facility] Carbon Dioxide 28 22 - 31 mmol/L [facility] Anion Gap 8 5 - 15 mmol/L [facility] Calcium 9.4 8.5 - 10.5 mg/dL [facility] Protein, Total 6.8 6.1 - 8.0 gm/dL [facility] Albumin 4.4 3.2 - 5.2 gm/dL [facility] Aspartate Aminotransferase 17 0 - 30 unit/L [facility] Alanine Aminotransferase 22 0 - 30 unit/L [facility] Alkaline Phosphatase 102 35 - 105 unit/L [facility] Bilirubin, Total 0.4 0.2 - 1.3 mg/dL [facility] Est Glomerular Filtration Rate 68 >=60 mL/min/1. 73 m?? [facility] Comment: This patient? s [...] [facility] [place] [address] documented in this encounter Visit Diagnoses Diagnosis Ocular melanoma, left- Primary Renal cell cancer, left Ocular melanoma, left Renal cell cancer, left Malignant melanoma, unspecified site Ocular melanoma, left Irritable bowel syndrome with constipation Irritable bowel syndrome documented in this encounter Care Teams Cargo Agent Relationship Specialty Start Date End Date Luis E Narayan MD [facility] DR LILI WALKER-[place] [address] PCP - General Family Medicine 03/26/19 01/19/22 documented as of this encounter
--- OUTSIDE RECORDS SUMMARY | 2024-08-20 16:01 | XMS_ITS | Encounter Summary ---
[place] [address] Care Team Providers Care Telephone Service Adviser Name Role Phone Luis E Narayan MD Primary Care Provider Reason for Visit * Auth/Cert Specialty Diagnoses / Procedures Referred By Gonzalez kumari Referred To Contact Diagnoses Pigmented large conjunctival lesion Procedures PRO EXCIS CORNEA LESN EXCISION OF LESION, CORNEA, EXCEPT PTERYGIUM (WRVU 7.5) Referral ID Status Reason Start Date Expiration Date Visits Re quested Visits Authorized [id number] 1 1 Encounter Details Date Type Department Care Team (Late st Contact Info) Description 05/14/2020 12:02 PM EST Anesthesia Event [facility] [address] Aki George DO Bryan, Yvon F, MD [facility] [place] [address] Anesthesia Record Procedure Summary Procedure Name Responsible [...] 1124; median cubital vein (antecubital fossa), right; sehf-[id number] catheter system; 22 gauge; Daisha MCCOLLUM ; [...] Procedure Summary Date: 05/14/20 Room / Location: [facility] [place] [address] [place] [address] Anesthesia Start: 1202 Anesthesia Stop: 131 Procedures: EXCISION OF LESION, CORNEA, EXCEPT PTERYGIUM (WRVU 7.5) (Left Eye) DESTRUCTION OF LESION OF CORNEA BY CRYOTHERAPHY (WRVU 3.47) (Left Eye) PLACEMENT OF AMNIOTIC MEMBRANE ON THE OCULAR SURFACE,SINGLE LAYER,SUTURED (WRVU 2.5) (Left ) Diagnosis: (Pigmented large conjunctival lesion) Surgeon: Juanpablo Hernandez MD Responsible Provider: Aki George DO Anesthesia Type: general ASA Status: 3 All Anesthesia Providers: Anesthesiologist: Aki George DO CHIEF DEPUTY CLERK/BAILIFF: Chantell Castellanos CRNA Vitals Value Taken Time BP 136/78 05/14/20 1320 Temp 36.3 ??C (97.3 ??F) 05/14/20 1316 Pulse 65 05/14/20 1321 Resp 18 05/14/20 1316 SpO2 94 % 05/14/20 1321 Pain Level 0 05/14/20 1316 Vitals shown include unvalidated device data. Patient Location: PACU/[facility] Level of Consciousness: Awake and [...] grade (VALENTINO 1) 2018 Normal Pap, HPV Varnisher Apprentice eConsult 2019: She should have pap/HPV cotest [...] Bipolar affective disorder in remission Diagnosis in [facility] records, unconfirmed ??? Anxiety ??? Type 2 [...] TSH, etc. ??? Coronary artery disease involving [place] coronary artery of [place] heart with angina pectoris History of angina [...] inhalerswith good effect ??? 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 [...] on CPAP, depression/anxiety/bipolar, HLD, HTN, CAD s/p CT and 4 stents to LCx in 10/2007, [...] 1:00 PM EST Hospital Encounter [place] [address] Roland Gooden MD [facility] [place] [address] 08/29/2024 1:00 PM EST - 08/29/2024 2:00 PM EST Surgery [place] [address] Roland Gooden MD [facility] [place] [address] EGD, UPPER GI ENDOSCOPY (WRVU 2.09) 10/02/2024 1:00 PM EDT Office [place] [address] Juanpablo Hernandez MD [facility] [place] [address] 10/21/2024 9:30 AM EDT Office Visit Internal Medicine at [address] [phone] Daryn Garrett MD [facility] DR LIL[place] [address] 01/30/2025 1:30 PM EDT Laboratory Appointment Lab at [facility] Hematology Oncology [address] [place] [phone] 01/30/2025 3:[address] [place] [address] Arturo Cordero MD [facility] [place] [address] 01/30/2025 4:15 PM EDT Office Visit Hematology and Oncology at [facility] [place] [address] Arturo Cordero MD [facility] DR [place] [address] Scheduled Procedures Name Priority Associated Diagnoses Date/Ti [...] /hr documented in this encounter Care Teams Telephone Service Adviser Relationship Specialty Start Date End Date Luis E Narayan MD [facility] DR LILI [place] [address] PCP - General Family Medicine 03/26/19 01/19/22 documented as of this encounter
--- OUTSIDE RECORDS SUMMARY | 2024-08-20 16:01 | XMS_ITS | Encounter Summary ---
[place] [address] Care Team Providers Care Clarifying Plant Operator Name Role Phone Luis E Narayan MD Primary Care Provider Encounter Details Date Type Department Care Team (Late st Contact Info) Description 04/08/2020 Telephone [place] [address] Arlene Puente Social History Tobacco Use Types [...] EST Hospital Encounter Gastroenterology at [place] [phone] Roland Gooden MD [facility] [place] [address] 08/29/2024 1:00 PM EST - 08/29/2024 2:00 PM EST Surgery Gastroenterology at [place] [phone] Roland Gooden MD [facility] [place] [address] EGD, UPPER GI ENDOSCOPY (WRVU 2.09) 10/02/2024 1:00 PM EDT Office [place] [address] Juanpablo Hernandez MD [facility] [place] [address] 10/21/2024 9:30 AM EDT Office Visit Internal Medicine at [address] [phone] Daryn Garrett MD [facility] DR LILI [place] [address] 01/30/2025 1:30 PM EDT Laboratory Appointment Lab at [facility] Hematology Oncology [address] [place] [phone] 01/30/2025 3:[address] [place] [address] Arturo Cordero MD [facility] [place] [address] 01/30/2025 4:15 PM EDT Office Visit Hematology [place] [address] Arturo Cordero MD [facility] [place] [address] Scheduled Procedures Name Priority Associated Diagnoses Date/Ti me EGD, UPPER GI ENDOSCOPY (WRVU 2.09) Irritable bowel syndrome with constipation 08/29/2024 1:00 PM EST COLONOSCOPY, DIAGNOSTIC (WRVU 3.26) Irritable bowel syndrome with constipation 08/29/2024 1:00 PM EST documented as of this encounter Visit Diagnoses Not on filedocumented in this encounter Care Teams Clarifying Plant Operator Relationship Specialty Start Date End Date Luis E Narayan MD [facility] [address] [place] [address] PCP - General Family Medicine 03/26/19 01/19/22 documented as of this encounter
--- OUTSIDE RECORDS SUMMARY | 2024-08-20 16:01 | XMS_ITS | Encounter Summary ---
Author Organization [facility] Address [facility] [place] [address] Care Team Providers Care Golf Sales Manager Name Role Phone Luis E Narayan MD Primary Care Provider Reason for Visit * Reason Comments Pre-op Exam 05/14/20 @ [facility]. 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 [...] 1:00 PM EST Hospital Encounter Gastroenterology at [place] [phone] Roland Gooden MD [facility] [place] [address] 08/29/2024 1:00 PM EST - 08/29/2024 2:00 PM EST [place] [phone] Roland Gooden MD [facility] [place] [address] EGD, UPPER GI ENDOSCOPY (WRVU 2.09) 10/02/2024 1:00 PM EDT [place] [address] Juanpablo Hernandez MD [facility] [place] [address] 10/21/2024 9:30 AM EDT Office Visit Internal Medicine at [facility] [address] [place] [address] Daryn Garrett MD [facility] DR LIL[place] [address] 01/30/2025 1:30 PM EDT Laboratory Appointment Lab at [facility] Hematology Oncology [address] [place] [phone] 01/30/2025 3:[address] [place] [place] [phone] Arturo Cordero MD [facility] [place] [address] 01/30/2025 4:15 PM EDT Office Visit [place]ology [place] [address] Arturo Cordero MD [facility] [place] [address] Scheduled Procedures Name Priority Associated Diagnoses Date/Ti me EGD, UPPER GI ENDOSCOPY (WRVU 2.09) Irritable bowel syndrome with constipation 08/29/2024 1:00 PM EST COLONOSCOPY, DIAGNOSTIC (WRVU 3.26) Irritable bowel syndrome with constipation 08/29/2024 1:00 PM EST documented as of this encounter Visit Diagnoses Diagnosis Pre-op examination Preoperative examination, unspecified Preventative health care Routine general medical examination at a health care facility Irritable bowel syndrome with constipation Irritable bowel syndrome documented in this encounter Care Teams Golf Sales Manager Relationship Specialty Start Date End Date Luis E Narayan MD [facility] DR LILI [place] [address] PCP - General Family Medicine 03/26/19 01/19/22 documented as of this encounter
--- OUTSIDE RECORDS SUMMARY | 2024-08-20 16:01 | XMS_ITS | Encounter Summary ---
Author Organization [facility] [place] [address] Care Team Providers Care Emergency Veterinarian Name Role Phone Luis E Narayan MD Primary Care Provider Reason for Referral * Diagnostic Test (Routine) - Closed Specialty Diagnoses / Procedures Referred By Contac t Referred To Contact Radiology Diagnoses Ocular melanoma, left Malignant melanoma, unspecified site Procedures CT Neck Soft Tissue w Contrast (Generic) Arturo Cordero MD [facility] [place] [address] [facility] [place] [address] Referral ID Status Reason Start Date Expiration Date V isits Requested Visits Authorized [id number] Closed Specialty Service Requested 06/08/2020 12/06/2021 1 1 * Diagnostic Test (Routine) - Closed Specialty Diagnoses / Procedures Referred By Contac t Referred To Contact Radiology Diagnoses Ocular melanoma, left Renal cell cancer, left Procedures CT Chest Abdomen Pelvis w Contrast (Generic) Sri Frederick MD [facility] DR HEMATOLOGY/[place] [address] [facility] [place] [address] Referral ID Status Reason Start Date Expiration Date V isits Requested Visits Authorized [id number] Closed Specialty Service Requested 05/26/2020 11/23/2021 1 1 Reason for Visit * Diagnostic Test (Routine) - Closed Specialty Diagnoses / Procedures Referred By Gonzalez kumari Referred To Contact Radiology Diagnoses Ocular melanoma, left Renal cell cancer, left Procedures CT Chest Abdomen Pelvis w Contrast (Generic) Sri Frederick MD [facility] DR HEMATOLOGY/[place] [address] [facility] [place] [address] Referral ID Status Reason Start Date Expiration Date V isits Requested Visits Authorized [id number] Closed Specialty Service Requested 05/26/2020 11/23/2021 1 1 Encounter Details Date Type Department Care Team (Latest Contact Info) Description 06/12/2020 3:32 PM EST - 06/12/2020 11:59 PM EST Hospital [place] [phone] Arturo Cordero MD [facility] [place] [address] Ocular melanoma, left; Renal cell cancer, left; [...] 08/05/2019 06/14/2021 fluticasone propionate (FLONASE) 50 mcg/actuation [place], Suspension 1 spray by Each Nare route [...] 1:00 PM EST Hospital Encounter [place] [address] Roland Gooden MD [facility] [place] [address] 08/29/2024 1:00 PM EST - 08/29/2024 2:00 PM EST Surgery [place] [phone] Roland Gooden MD [facility] [place] [address] EGD, UPPER GI ENDOSCOPY (WRVU 2.09) 10/02/2024 1:00 PM EDT Office [place] [phone] Juanpablo Hernandze MD [facility] [place] [address] 10/21/2024 9:30 AM EDT Office Visit Internal Medicine at [place] [address] [place] [phone] Daryn Garrett MD [facility] [address] [place] [address] 01/30/2025 1:30 PM EDT Laboratory Appointment Lab at [facility] Hematology Oncology [address] [place], [place] [phone] 01/30/2025 3:[address] [place] [address] Arturo Cordero MD [facility] [place] [address] 01/30/2025 4:15 PM EDT Office Visit Hematology [place] [phone] Arturo Cordero MD [facility] [place] [address] Scheduled Procedures Name Priority Associated Diagnoses Date/Ti [...] ? Electronically signed by: Paulina Saldivar MD, [facility] ([phone]), at 06/14/2020 8:22 AM Narrative 06/14/2020 8:22 [...] below. Electronically signed by: Paulina Saldivar MD, [facility]([phone]), at 06/14/2020 8:22 AM Arturo Cordero MD IMG CT ORDERABLES documented in this encounter Visit Diagnoses Diagnosis Ocular melanoma, left Renal cell cancer, left Malignant melanoma, unspecified site Irritable bowel [...] mLs documented in this encounter Care Teams Emergency Veterinarian Relationship Specialty Start Date End Date Luis E Narayan MD [facility] DR LIL[place] [address] PCP - General Family Medicine 03/26/19 01/19/22 documented as of this encounter
--- OUTSIDE RECORDS SUMMARY | 2024-08-20 16:01 | XMS_ITS | Encounter Summary ---
[place] [address] Care Team Providers Care Auto Tech Name Role Phone Luis E Narayan MD Primary Care Provider Reason for Visit * Reason Onset Date Comments Post Op Post Op 05/15/2020 Encounter Details Date Type Department Care Team (Late st Contact Info) Description 05/15/2020 1:30 PM EST Office [place] [address] Juanpablo Hernandez MD [facility] [place] [address] Conjunctival tumor Social History Tobacco Use Types [...] Instruction following eye surgery Section of Ophthalmology [facility] 1) AVOID EYE INJURIES: Following [...] DECREASING VISION: There is always a doctor transition coach at the eye clinic if you develop [...] 1:00 PM EST Hospital En[place] [address] Roland Gooden MD [facility] [place] [address] 08/29/2024 1:00 PM EST - 08/29/2024 2:00 PM EST Surgery Gastroenterology at [place] [phone] Roland Gooden MD [facility] [place] [address] EGD, UPPER GI ENDOSCOPY (WRVU 2.09) 10/02/2024 1:00 PM EDT Office [place] [address] Juanpablo Hernandez MD [facility] [place] [address] 10/21/2024 9:30 AM EDT Office Visit Internal Medicine at [address] [phone] Daryn Garrett MD [facility] DR LILI WALKER - PRIMARY CARE [place], [place] [phone] 01/30/2025 1:30 PM EDT Laboratory Appointment Lab at [facility] Hematology Oncology [address] [place] [phone] 01/30/2025 3:[address] [place] [address] Arturo Cordero MD [facility] DR HEMATOLOGY [place] [address] 01/30/2025 4:15 PM EDT Office Visit Hematology and Oncology at [facility] [place] [address] Arturo Cordero MD [facility] DR HEMATOLOGY [place] [address] Scheduled Procedures Name Priority Associated Diagnoses Date/Ti [...] syndrome documented in this encounter Care Teams Auto Tech Relationship Specialty Start Date End Date Luis E Narayan MD [facility] DR LILI WALKER-[place] [address] PCP - General Family Medicine 03/26/19 01/19/22 documented as of this encounter
--- OUTSIDE RECORDS SUMMARY | 2024-08-20 16:01 | XMS_ITS | Encounter Summary ---
Author Organization [facility] [place] [address] Care Team Providers Care Hospice Liaison Name Role Phone Luis E Narayan MD Primary Care Provider Encounter Details Date Type Department Care Team (Latest Contact Info) Description 06/12/2020 1:43 PM EST - 06/12/2020 2:04 PM EST Hospital Encounter [place]ology [place] [address] Ocular melanoma, left Discharge Disposition: Home Social [...] 08/05/2019 06/14/2021 fluticasone propionate (FLONASE) 50 mcg/actuation [place], Suspension 1 spray by Each Nare route [...] 1:00 PM EST Hospital En[place] [address] Roland Gooden MD [facility] [place] [address] 08/29/2024 1:00 PM EST - 08/29/2024 2:00 PM EST [place] [phone] Roland Gooden MD [facility] [place] [address] EGD, UPPER GI ENDOSCOPY (WRVU 2.09) 10/02/2024 1:00 PM EDT Office [place] [address] Juanpablo Hernandez MD [facility] [place] [address] 10/21/2024 9:30 AM EDT Office Visit Internal Medicine at [address] [place] [address] Daryn Garrett MD [facility] DR LIL[place] [address] 01/30/2025 1:30 PM EDT Laboratory Appointment Lab at [facility] Hematology Oncology [address] [place] [phone] 01/30/2025 3:[address] [place] [address] Arturo Cordero MD [facility] [address] [place] [address] 01/30/2025 4:15 PM EDT Office Visit Hematology [place] [phone] Arturo Cordero MD [facility] DR HEMATOLOGY AND ONCOLOGY [place], [place] [phone] Scheduled Procedures Name Priority Associated Diagnoses Date/Ti [...] 2:00 PM EST) Neutrophil % 57.4 % [facility] Neutrophil Absolute 4.65 1.70 - 6.10 x10(3)/[facility] Lymph % 32.2 % [facility] Lymphocytes Abs 2.6 0.9 - 3.2 x10(3)/[facility] Monocyte % 7.6 % [facility] Monocyte Abs 0.6 0.3 - 0.9 x10(3)/[facility] Eos % 1.6 % [facility] Eosinophils Abs 0.1 0.0 - 0.4 x10(3)/[facility] Basophil % 0.7 % [facility] Baso Absolute 0.1 0.0 - 0.1 x10(3)/[facility] Immature Gran % 0.50 % [facility] Comment: Immature granulocytes(IG's)percentage and absolute count will include metamyelocytes, myelocytes, and promyelocytes. Blood smears from CBCs yielding IG's will be scanned manually for concordance. If this scan disagrees with the automated IG or if promyelocytes are noted, a manual differential will be performed. Immature Gran Absolute 0.04 0.00 - 0.04 x10(3)/[facility] Blood specimen (specimen) 06/12/2020 2:00 PM EST 06/12/2020 2:04 PM EST Narrative Resulting Agency Comment Spec In Lab Sri Frederick MD HEMATOLOGY ORDERABLE S [facility] [place] [address] * Hemogram (06/12/2020 2:00 PM EST) [facility] White Blood Cell 8.1 4.0 - 9.5 x10(3)/[facility] Red Blood Cell 4.67 4.00 - 5.21 x10(6)/[facility] Hemoglobin 13.4 11.7 - 15.5 gm/dL [facility] Hematocrit 40.7 35.7 - 45.8 % [facility] Mean Cell Volume 87.2 82.6 - 94.4 fL [facility] Mean Cell Hemoglobin 28.7 27.1 - 32.0 pg [facility] Mean Cell Hemoglobin Concentration 32.9 31.7 - 35.0 gm/dL [facility] Platelet 350 145 - 357 x10(3)/[facility] RDW Standard Deviation 42.6 37.0 - 46.0 [facility] RDW coefficient of variation 13.4 11.5 - 14.1 % [facility] Mean Platelet Volume 9.2 7.6 - 12.9 fL [facility] NRBC% auto 0.0 % [facility] NRBC Absolute 0.000 0.000 - 0.000 x10(3)/[facility] Blood specimen (specimen) 06/12/2020 2:00 PM EST 06/12/2020 2:04 PM EST Narrative Resulting Agency Comment Spec In Lab Sri Frederick MD HEMATOLOGY ORDERABLE S [facility] [place] [address] * Comprehensive metabolic panel (non-fasting) (06/12/2020 2:00 PM EST) [facility] Glucose 166 65 - 199 mg/dL [facility] Comment:Diabetes: >=200 mg/d L plus symptoms Blood Urea Nitrogen 17 8 - 18 mg/dL [facility] Creatinine 0.92 0.70 - 1.20 mg/dL [facility] [...] [facility] Anion Gap 8 5 - 15 mmol/L [facility] Calcium 9.4 8.5 - 10.5 mg/dL [facility] Protein, Total 6.8 6.1 - 8.0 gm/dL [facility] Albumin 4.4 3.2 - 5.2 gm/dL [facility] Aspartate Aminotransferase 17 0 - 30 unit/L [facility] Alanine Aminotransferase 22 0 - 30 unit/L [facility] Alkaline Phosphatase 102 35 - 105 unit/L [facility] Bilirubin, Total 0.4 0.2 - 1.3 mg/dL [facility] [...] In Lab Arturo Cordero MD CHEMISTRY ORDERABLES [facility] [place] [address] * Lactate Dehydrogenase (06/12/2020 2:00 PM EST) Lactate Dehydrogenase 198 110 - 220 unit/L [facility] Blood specimen (specimen) 06/12/2020 2:00 PM EST 06/12/2020 2:04 PM EST Narrative Resulting Agency Comment Spec In Lab Arturo Cordero MD CHEMISTRY ORDERABLES Performing Organization Address City/[facility]/ZIP Co de Phone Number [facility] [place] [address] * TSH (06/12/2020 2:00 PM EST) Thyroid Stimulating Hormone 2.53 0.27 - 4.20 mcIU/mL [facility] Blood specimen (specimen) 06/12/2020 2:00 PM EST 06/12/2020 2:04 PM EST Narrative Resulting Agency Comment Spec In Lab Arturo Cordero MD CHEMISTRY ORDERABLES Performing Organization Address City/[facility]/ZIP Co de Phone Number [facility] [place] [address] * T4, free (06/12/2020 2:00 PM EST) Free T4 1.01 0.93 - 1.70 ng/dL [facility] Blood specimen (specimen) 06/12/2020 2:00 PM EST 06/12/2020 2:04 PM EST Narrative Resulting Agency Comment Spec In Lab Arturo Cordero MD CHEMISTRY ORDERABLES Performing Organization Address City/[facility]/ZIP Co de Phone Number [facility] [place] [address] documented in this encounter Visit Diagnoses Diagnosis Ocular melanoma, left Irritable bowel syndrome with constipation Irritable bowel syndrome documented in this encounter Care Teams Hospice Liaison Relationship Specialty Start Date End Date Luis E Narayan MD [facility] [address] [place] [address] PCP - General Family Medicine 03/26/19 01/19/22 documented as of this encounter
--- OUTSIDE RECORDS SUMMARY | 2024-08-20 16:01 | XMS_ITS | Encounter Summary ---
Author Organization [facility] Address [facility] [place] [address] Care Team Providers Care Specialized Developer Name Role Phone Luis E Narayan MD Primary Care Provider Reason for Visit * Reason Onset Date Comments Medication Refill 06/11/2020 Encounter Details Date Type Department Care Team (Late st Contact Info) Description 06/11/2020 Refill [place] [phone] Juanpablo Hernandez MD [facility] [place] [address] Conjunctival tumor Social History Tobacco Use Types [...] Hospital Encounter [place] [phone] Roland Gooden MD [facility] [place] [address] 08/29/2024 1:00 PM EST - 08/29/2024 2:00 PM EST Surgery Gastroenterology at [place] [phone] Roland Gooden MD [facility] [place] [place] [address] EGD, UPPER GI ENDOSCOPY (WRVU 2.09) 10/02/2024 1:00 PM EDT Office Visit Ophthalmology at [place] [phone] Juanpablo Hernandez MD [facility] [place] [address] 10/21/2024 9:30 AM EDT Office Visit Internal Medicine at [address] [phone] Daryn Garrett MD [facility] DR LILI WALKER - PRIMARY CARE [place] [phone] 01/30/2025 1:30 PM EDT Laboratory Appointment Lab at [facility] Hematology Oncology [address] [place], [place] [phone] 01/30/2025 3:[address] Scan at [place] [phone] Arturo Cordero MD [facility] [place] [address] 01/30/2025 4:15 PM EDT Office Visit Hematology [place] [address] Arturo Cordero MD [facility] HEMATOLOGY [place] [address] Scheduled Procedures Name Priority Associated Diagnoses Date/Ti [...] syndrome documented in this encounter Care Teams Specialized Developer Relationship Specialty Start Date End Date Luis E Narayan MD [facility] [address] [place] [address] PCP - General Family Medicine 03/26/19 01/19/22 documented as of this encounter
--- OUTSIDE RECORDS SUMMARY | 2024-08-20 16:01 | XMS_ITS | Encounter Summary ---
[place] [address] Care Team Providers Care Home Health Attendant Name Role Phone Luis E Narayan MD Primary Care Provider [phone] Encounter Details Date Type Department Care Team (Latest Contact Info) Description 06/08/2020 1:27 PM EST - 06/08/2020 11:59 PM EST Hospital [place] [address] Discharge Disposition: Home Social History Tobacco Use [...] 08/05/2019 06/14/2021 fluticasone propionate (FLONASE) 50 mcg/actuation [place], Suspension 1 spray by Each Nare route [...] 1:00 PM EST Hospital En[place] [phone] Roland Gooden MD [facility] [place] [address] 08/29/2024 1:00 PM EST - 08/29/2024 2:00 PM EST [place] [phone] Roland Gooden MD [facility] [place] [address] EGD, UPPER GI ENDOSCOPY (WRVU 2.09) 10/02/2024 1:00 PM EDT Office [place] [phone] Juanpablo Hernandez MD [facility] [place] [address] 10/21/2024 9:30 AM EDT Office Visit Internal Medicine at [place] [address] [place] [address] Daryn Garrett MD [facility] DR [place] [address] 01/30/2025 1:30 PM EDT Laboratory Appointment Lab [place] [facility] [place] On[place] [address] [place] [phone] 01/30/2025 3:[address] [place] [address] Arturo Cordero MD [facility] [place] [address] 01/30/2025 4:15 PM EDT Office Visit Hematology [place] [address] Arturo Cordero MD [facility] [place] [address] Scheduled Procedures Name Priority Associated Diagnoses Date/Ti me EGD, UPPER GI ENDOSCOPY (WRVU 2.09) Irritable bowel syndrome with constipation 08/29/2024 1:00 PM EST COLONOSCOPY, DIAGNOSTIC (WRVU 3.26) Irritable bowel syndrome with constipation 08/29/2024 1:00 PM EST documented as of this encounter Visit Diagnoses Not on filedocumented in this encounter Care Teams Home Health Attendant Relationship Specialty Start Date End Date Luis E Narayan MD [facility] [address] [place] [address] PCP - General Family Medicine 03/26/19 01/19/22 documented as of this encounter
--- OUTSIDE RECORDS SUMMARY | 2024-08-20 16:01 | XMS_ITS | Encounter Summary ---
Author Organization [facility] Address [facility] [place] [address] Care Team Providers Care Flatwork Finisher Name Role Phone Luis E Narayan MD Primary Care Provider Reason for Referral * Consultation (Routine) - Closed Specialty Diagnoses / Procedures Referred By Gonzaelz kumari Referred To Contact Hematology and Oncology Diagnoses Malignant melanoma of conjunctiva, left Molly Monique MD [facility] DR HEMATOLOGY/[place] [address] [facility] [place] [address] [place] [address] Referral ID Status Reason Start Date Expiration Date V isits Requested Visits Authorized [id number] Closed Consult, Test & Treat 06/16/2020 06/16/2021 1 1 Encounter Details Date Type Department Care Team (Late st Contact Info) Description 06/16/2020 10:00 AM EST Office Visit [place]ematology [place] [phone] Arturo Vincent MD [facility] [place] [address] Leandra Lopes, [employer] [place] [address] Malignant melanoma of conjunctiva, left [...] from the original note were not included. [facility] FOLLOW UP NOTE REFERING PHYSICIAN: [...] management - fall 2018: saw a new payment specialist and was referred to Dr. 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 Medina - 03/31/2020: saw her payment specialist Dr. Hernandez and was noted to have [...] uses inhalerswith good effect ??? Atherosclerosis of kaibab coronary artery of [place] heart with angina pectoris 10/09/2007 History of [...] 3.47) performed by Juanpablo Hernandez MD at [facility] ??? PRO EXCIS CORNEA LESN Left 05/14/2020 EXCISION OF LESION, CORNEA, EXCEPT PTERYGIUM (WRVU 7.5) performed by Juanpablo Hernandez MD at [facility] ??? PRO LAP, PARTIAL NEPHRECTOMY Left 06/28/2019 LAPAROSCOPY, PARTIAL NEPHRECTOMY, ROBOTIC ASSIST (WRVU 27.41) performed by Avila Medina MD at [facility] MAIN OR ??? 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 Hernandez in Ophthalmology. [...] 1:00 PM EST Hospital En[place] [address] Roland Gooden MD [facility] [place] [address] 08/29/2024 1:00 PM EST - 08/29/2024 2:00 PM EST [place] [address] Roland Gooden MD [facility] [place] [address] EGD, UPPER GI ENDOSCOPY (WRVU 2.09) 10/02/2024 1:00 PM EDT Office [place] [address] Juanpablo Hernandez MD [facility] [place] [address] 10/21/2024 9:30 AM EDT Office Visit Internal Medicine at [place] [address] [place] [address] Daryn Garrett MD [facility] DR LILI [place] [address] 01/30/2025 1:30 PM EDT Laboratory Appointment Lab at [facility] Hematology Oncology [address] [place] [phone] 01/30/2025 3:[address] [place] [address] Arturo Vincent MD [facility] [place] [address] 01/30/2025 4:15 PM EDT Office Visit [place]ematology [place] [address] Arturo Vincent MD [facility] [place] [address] Scheduled Orders Name Type Priority Associated Diagnoses [...] below. Electronically signed by: Nakia Goetz MD, [facility] ([phone]), at 09/15/2020 9:54 AM ? Nakia Goetz, Staff Physician Electronically Signed Final Report ?? 09/15/2020 10:01 am Narrative 09/15/2020 10:01 AM EST Ultrasound Soft Tissue ?(Signed Final 09/15/2020 10:01 am) Neck or Head Report -Left Neck PATIENT INFO: ID #: ? [id number] ?: ??[birth year] (59 yrs)(F) Name: ? PATIENCE MANJARREZ ? Visit Date: 09/15/2020 09:42 am PERFORMED BY: Performed By: ? Kaela Bruno RDMS Attending: ?Nakia Goetz MD Referred By: ?ARTURO VINCENT Location: ? [facility] SERVICE(S) PROVIDED: USTN - Soft Tissue Neck or Head - [id number] ? [id number] INDICATIONS: History of left eye conjunctival melanoma [...] Report -Left Neck PATIENT INFO: ID #: [id number] : 58 (59 yrs)(F) Name: PATIENCE MANJARREZ Visit Date: 09/15/2020 09:42 am PERFORMED BY: Performed By: Kaela Bruno RDMS Attending: Nakia Goetz MD Referred By: ARTURO VINCENT Location: [facility] SERVICE(S) PROVIDED: USTN - Soft Tissue Neck or Head - [id number] INDICATIONS: History of left eye conjunctival melanoma [...] below. Electronically signed by: Nakia Goetz MD, [facility] ([phone]), at 09/15/2020 9:54 AM Nakia Goetz, Staff Physician Electronically Signed Final Report 09/15/2020 10:01 am Arturo Vincent MD IMG US GEN ORDERABLE S documented in this encounter Visit Diagnoses Diagnosis Malignant melanoma of conjunctiva, left- Primary Anxiety Anxiety state, unspecified History of renal cell cancer Malignant melanoma of conjunctiva, left Irritable bowel syndrome with constipation Irritable bowel syndrome documented in this encounter Care Teams Flatwork Finisher Relationship Specialty Start Date End Date Luis E Narayan MD [facility] DR LILI [place] [address] PCP - General Family Medicine 03/26/19 01/19/22 documented as of this encounter
--- OUTSIDE RECORDS SUMMARY | 2024-08-20 16:01 | XMS_ITS | Encounter Summary ---
Author Organization [facility] Address [facility] [facility] [place] [address] Care Team Providers Care Ground Control Approach Technician Name Role Phone Luis E Narayan MD Primary Care Provider Reason for Visit * Reason Onset Date Comments Medication Refill 04/28/2020 Encounter Details Date Type Department Care Team (Late st Contact Info) Description 04/28/2020 Refill Family Medicine at [facility] [address] [place] [address] Bonny Emanuel MD [address] [place] [address] Social History Tobacco Use Types Packs/Day Years [...] 1:00 PM EST Hospital En[place] [address] Roland Gooden MD [facility] [place] [address] 08/29/2024 1:00 PM EST - 08/29/2024 2:00 PM EST Surgery Gastroenterology at [place] [phone] Roland Gooden MD [facility] [place] [address] EGD, UPPER GI ENDOSCOPY (WRVU 2.09) 10/02/2024 1:00 PM EDT Office Visit Ophthalmology at [place] [phone] Juanpablo Hernandez MD [facility] [place] [address] 10/21/2024 9:30 AM EDT Office Visit Internal Medicine at [address] [phone] Daryn Garrett MD [facility] [address] LILI [place]ER [place] [address] 01/30/2025 1:30 PM EDT Laboratory Appointment Lab at [facility] Hematology Oncology [address] [place], [place] [phone] 01/30/2025 3:[address] Scan at [place] [phone] Arturo Cordero MD [facility] HEMATOLOGY [place] [address] 01/30/2025 4:15 PM EDT Office Visit Hematology [place] [address] Arturo Cordero MD [facility] HEMATOLOGY [place] [address] Scheduled Procedures Name Priority Associated Diagnoses Date/Ti me EGD, UPPER GI ENDOSCOPY (WRVU 2.09) Irritable bowel syndrome with constipation 08/29/2024 1:00 PM EST COLONOSCOPY, DIAGNOSTIC (WRVU 3.26) Irritable bowel syndrome with constipation 08/29/2024 1:00 PM EST documented as of this encounter Visit Diagnoses Not on filedocumented in this encounter Care Teams Ground Control Approach Technician Relationship Specialty Start Date End Date Luis E Narayan MD [facility] [address] [place] [address] PCP - General Family Medicine 03/26/19 01/19/22 documented as of this encounter
--- OUTSIDE RECORDS SUMMARY | 2024-08-20 16:01 | XMS_ITS | Encounter Summary ---
Author Organization Replaced By [facility] [place] [address] Care Team Providers Care Piper Installer Name Role Phone Luis E Narayan MD Primary Care Provider Reason for Visit * Reason Onset Date Comments Appointment 03/27/2020 Encounter Details Date Type Department Care Team (Late st Contact Info) Description 03/27/2020 [place]phone [place] [address] Juanpablo Hernandez MD [facility] [place] [address] Appointment Social History Tobacco Use Types Packs/Day [...] 1:00 PM EST Hospital Encounter [place] [address] Roland Gooden MD [facility] [place] [address] 08/29/2024 1:00 PM EST - 08/29/2024 2:00 PM EST [place] [phone] Roland Gooden MD [facility] [address] EGD, UPPER GI ENDOSCOPY (WRVU 2.09) 10/02/2024 1:00 PM EDT Office [place] [address] Juanpablo Hernandez MD [facility] [place] [address] 10/21/2024 9:30 AM EDT Office Visit Internal Medicine at [address] [place] [phone] Daryn Garrett MD [facility] DR LILI [place]ER [place] [address] 01/30/2025 1:30 PM EDT Laboratory Appointment Lab at [facility] Hematology Oncology [address] [place] [phone] 01/30/2025 3:[address] [place] [address] Arturo Cordero MD [facility] HEMATOLOGY [place] [address] 01/30/2025 4:15 PM EDT Office Visit Hematology and Oncology at [facility] [place] [address] Arturo Cordero MD [facility] DR HEMATOLOGY [place] [address] Scheduled Procedures Name Priority Associated Diagnoses Date/Ti me EGD, UPPER GI ENDOSCOPY (WRVU 2.09) Irritable bowel syndrome with constipation 08/29/2024 1:00 PM EST COLONOSCOPY, DIAGNOSTIC (WRVU 3.26) Irritable bowel syndrome with constipation 08/29/2024 1:00 PM EST documented as of this encounter Visit Diagnoses Not on filedocumented in this encounter Care Teams Piper Installer Relationship Specialty Start Date End Date Luis E Narayan MD [facility] [address] [place] [address] PCP - General Family Medicine 03/26/19 01/19/22 documented as of this encounter
--- OUTSIDE RECORDS SUMMARY | 2024-08-20 16:01 | XMS_ITS | Encounter Summary ---
Author Organization Formerly [facility] [place] [address] Care Team Providers Care Chartered Accountant Name Role Phone Luis E Narayan MD Primary Care Provider Reason for Referral * Diagnostic Test (Routine) - Closed Specialty Diagnoses / Procedures Referred By Contchrissy kumari Referred To Contact Radiology Diagnoses Ocular melanoma, left Malignant melanoma, unspecified site Procedures CT Neck Soft Tissue w Contrast (Generic) Arturo Cordero MD [facility] [address] [place] [address] [facility] [place] [address] Referral ID Status Reason Start Date Expiration Date V isits Requested Visits Authorized [id number] Closed Specialty Service Requested 06/08/2020 12/06/2021 1 1 Encounter Details Date Type Department Care Team (Late st Contact Info) Description 06/08/2020 Orders Only [place]ematology [place] [address] Arturo Cordero MD [facility] [address] [place] [address] Ocular melanoma, left; Malignant melanoma, [...] 1:00 PM EST Hospital En[place] [address] Roland Gooden MD [facility] [place] [address] 08/29/2024 1:00 PM EST - 08/29/2024 2:00 PM EST [place] [phone] Roland Gooden MD [facility] [place] [address] EGD, UPPER GI ENDOSCOPY (WRVU 2.09) 10/02/2024 1:00 PM EDT Office [place] [address] Juanpablo Hernandez MD [facility] [place] [place] [address] 10/21/2024 9:30 AM EDT Office Visit Internal Medicine at [address] [phone] Daryn Garrett MD [facility] [address] 01/30/2025 1:30 PM EDT Laboratory Appointment Lab at [facility] Hematology Oncology [address] [place] [phone] 01/30/2025 3:[address] [place] [address] Arturo Cordero MD [facility] [address] [place] [address] 01/30/2025 4:15 PM EDT Office Visit Hematology and Oncology at [facility] [place] [address] Arturo Cordero MD [facility] [address] [place] [address] Scheduled Procedures Name Priority Associated Diagnoses Date/Ti [...] syndrome documented in this encounter Care Teams Chartered Accountant Relationship Specialty Start Date End Date Luis E Narayan MD [facility] [place] [address] PCP - General Family Medicine 03/26/19 01/19/22 documented as of this encounter
--- OUTSIDE RECORDS SUMMARY | 2024-08-20 16:01 | XMS_ITS | Encounter Summary ---
[place] [address] Care Team Providers Care Personnel Scheduler Name Role Phone Luis E Narayan MD Primary Care Provider Reason for Visit * Auth/Cert Specialty Diagnoses / Procedures Referred By Gonzalez kumari Referred To Contact Diagnoses Pigmented large conjunctival lesion Procedures PRO EXCIS CORNEA LESN EXCISION OF LESION, CORNEA, EXCEPT PTERYGIUM (WRVU 7.5) Referral ID Status Reason Start Date Expiration Date Visits Re quested Visits Authorized [id number] 1 1 Encounter Details Date Type Department Care Team (Latest Contact Info) Description 05/14/2020 10:53 AM EST - 05/14/2020 1:25 PM EST Hospital Encounter [place] [address] Mert Hernandez MD [facility] [place] [address] Discharge Disposition: Home Social History Tobacco Use [...] surgery Mert Hernandez MD Section of ophthalmology [facility] [phone] - Keep your eye patched, shielded, clean and dry overnight. The patch will be removed during your follow up visit with Dr. Hernandez tomorrow. - The surgery center nurses should confirm time of your follow up appointment for tomorrow with . This appointment will be at the Eye Clinic in the main building at [facility]. - Mild discomfort is normal, but if you have any severe eye pain or bleeding call [phone] and ask to speak to the eye doctor supervisor of instruction. - Call your Primary Care Doctor or [...] 08/05/2019 06/14/2021 fluticasone propionate (FLONASE) 50 mcg/actuation [place], Suspension 1 spray by Each Nare route [...] patient was questioned regarding travel outside of [place], fever, cough, SOB or other illness [...] again, temperature will be taken, patient and caregiver/stud driver will be given a mask to wear the entire time they are in the [facility] building. * Grecia Lamb RN - 05/11/2020 9:20 AM EST During this call the patient was questioned regarding travel outside of [facility], fever, cough, SOB or other illness [...] again, temperature will be taken, patient and caregiver/stud driver will be given a mask to [...] Hernandez MD - 05/14/2020 1:14 PM EST [facility] Operative Note Patient Name: Alize Gramajo : [id number] MR#: [id number] Case Date: 05/14/2020 Surgeon: Surgeon(s) and Role: [...] 2 mL Surgical Staff/Assistants: Mert Hernandez M.D. ([id number]) * Preoperative Diagnosis: Limbal conjunctival tumor, left [...] fresh instruments were obtained.The amniotic membrane donor [id number] from [employer] was applied to the scleral bed and [...] 1:00 PM EST Hospital En[place] [address] Roland Gooden MD [facility] [place] [address] 08/29/2024 1:00 PM EST - 08/29/2024 2:00 PM EST Surgery Gastroenterology at [address] Roland Gooden MD [facility] [place] [address] EGD, UPPER GI ENDOSCOPY (WRVU 2.09) 10/02/2024 1:00 PM EDT Office Visit Ophthalmology at [place] [phone] Mert Hernandez MD [facility] [place] [address] 10/21/2024 9:30 AM EDT Office Visit Internal Medicine at [address] [phone] Daryn Garrett MD [facility] [place] [address] 01/30/2025 1:30 PM EDT Laboratory Appointment Lab at [facility] Hematology Oncology [address] [place], [place] [phone] 01/30/2025 3:[address] Scan at [place] [phone] Arturo Cordero MD [facility] [place] [address] 01/30/2025 4:15 PM EDT Office Visit Hematology and Oncology at [place] [phone] Arturo Cordero MD [facility] [place] [address] Scheduled Procedures Name Priority Associated Diagnoses Date/Ti [...] Place Amniotic Membrane Ocular Surface;Single Layer Sutured (63090) 05/14/2020 12:04 PM EST Pigmented large conjunctival lesion Destr Corneal Lesn, Cryo, Photo, Therm (05146) 05/14/2020 12:04 PM EST Pigmented large conjunctival lesion Excis Cornea Lesn ([id number]) 05/14/2020 12:04 PM EST Pigmented large conjunctival lesion EXCISION OF LESION, CORNEA, EXCEPT PTERYGIUM Routine 05/14/2020 10:58 AM EST documented in this encounter Results * Specimen to Pathology (05/14/2020 12:47 PM EST) AP Specimen 05/14/2020 12:4 7 PM EST 05/14/2020 12:47 PM EST Narrative [facility] - 05/14/2020 12:47 PM EST Specimen requisition ordered. ??Separate Pathology report to follow Mert Hernandez MD PATHOLOGY/CYTOLOGY O ULISES [facility] [place] [address] * Specimen to Pathology (05/14/2020 12:47 PM EST) AP Specimen 05/14/2020 12:4 7 PM EST 05/14/2020 12:47 PM EST Narrative [facility] - 05/14/2020 12:47 PM EST Specimen requisition ordered. ??Separate Pathology report to follow Mert Hernandez MD PATHOLOGY/CYTOLOGY O ULISES Performing Organization Address [facility] [place] [facility] [place] [address] * Specimen to Pathology (05/14/2020 12:47 PM EST) AP Specimen 05/14/2020 12:4 7 PM EST 05/14/2020 12:47 PM EST Narrative [facility] - 05/14/2020 12:47 PM EST Specimen requisition ordered. ??Separate Pathology report to follow Mert Hernandez MD PATHOLOGY/CYTOLOGY O ULISES Performing Organization Address [facility] [place] [facility] Co de Phone Number [facility] [place] [address] * Specimen to Pathology (05/14/2020 12:47 PM EST) AP Specimen 05/14/2020 12:4 7 PM EST 05/14/2020 12:47 PM EST Narrative [facility] - 05/14/2020 12:47 PM EST Specimen requisition ordered. ??Separate Pathology report to follow Mert Hernandez MD PATHOLOGY/CYTOLOGY O ULISES Performing Organization Address [facility] [place] [facility] Co de Phone Number [facility] [place] [address] * Solid Tumor NGS Panel (05/14/2020 12:40 PM EST) Tissue specimen (specimen) 05/14/2020 12:40 PM EST 06/01/2020 11:57 AM EST Narrative Resulting Agency Comment Spec In Lab Mert Hernandez MD PATHOLOGY/CYTOLOGY O ULISES [facility] [place] [address] * Surgical Pathology Report (05/14/2020 12:40 PM EST) Final Diagnosis [id number] ? Location: [facility] The signing pathologist has [...] PhD, Allen Verified: ??05/20/2020 ?Dermatopathologist Performed at: ??-[facility] Dept. of Pathology, [place], [place] DISCUSSION A( Left eye, conjunctiva excision) [...] labeled D1. ??mayra 05/20/2020 3:13 PM EST [facility] SPECIMEN FROM SKIN / Unknown 05/14/2020 12:40 PM EST 05/14/2020 12:40 PM EST SPECIMEN FROM SKIN / Unknown 05/14/2020 12:40 PM EST 05/14/2020 12:40 PM EST SPECIMEN FROM SKIN / Unknown 05/14/2020 12:40 PM EST 05/14/2020 12:40 PM EST SPECIMEN FROM SKIN / Unknown 05/14/2020 12:40 PM EST 05/14/2020 12:40 PM EST Mert Hernandez MD PATHOLOGY/CYTOLOGY O DENISEERACELY [facility] [place] [address] documented in this encounter Visit Diagnoses Not on filedocumented in this encounter Administered Medications Inactive Administered Medications - up to 3 most recent administrations Medication Order MAR Action Action Date Dose Rate Site lactated ringers infusion 1,000 mL, at 100 mL/hr, Intravenous, CONTINUOUS, Starting on Carolee 11 at 1115, Until Carolee 05/14/20 at 1331, [...] Routine 1123 (Given - Provid er: Lashon Wick, VEDA) Continuous Medication Order 05/12/2020 05/13/2020 05/14/2020 lactated [...] 1124 (New Bag - Prov ider: Lashon Wick, VEDA) PRN Medication Order 05/12/2020 05/13/2020 05/14/2020 balanced [...] time) documented in this encounter Care Teams Personnel Scheduler Relationship Specialty Start Date End Date Luis E Narayan MD [facility] DR LILI [place] [address] PCP - General Family Medicine 03/26/19 01/19/22 documented as of this encounter
--- OUTSIDE RECORDS SUMMARY | 2024-08-20 16:01 | XMS_ITS | Encounter Summary ---
Author Organization Formerly [facility] Address [facility] [place] [address] Care Team Providers Care Laundry Worker Name Role Phone Luis E Narayan MD Primary Care Provider [phone]- [phone] Reason for Visit * Reason Onset Date Comments Medication Refill 04/19/2020 Encounter Details Date Type Department Care Team (Late st Contact Info) Description 04/19/2020 Refill Family Medicine at [facility] [address] [place] [address] Bonny Emanuel MD [address] [place] [address] Social History Tobacco Use Types Packs/Day Years [...] 1:00 PM EST Hospital [place] [address] Roland Gooden MD [facility] [place] [address] 08/29/2024 1:00 PM EST - 08/29/2024 2:00 PM EST Surgery Gastroenterology at [place] [phone] Roland Gooden MD [facility] [place] [address] EGD, UPPER GI ENDOSCOPY (WRVU 2.09) 10/02/2024 1:00 PM EDT Office Visit Ophthalmology at [place] [phone] Juanpablo Hernandez MD [facility] [place] [address] 10/21/2024 9:30 AM EDT Office Visit Internal Medicine at [address] [phone] Daryn Garrett MD [facility] DR LILI WALKER [place] [address] 01/30/2025 1:30 PM EDT Laboratory Appointment Lab at [facility] Hematology Oncology [address] [place], [place] [phone] 01/30/2025 3:[address] Scan at [place] [phone] Arturo Cordero MD [facility] HEMATOLOGY [place] [address] 01/30/2025 4:15 PM EDT Office Visit [place] [address] Arturo Cordero MD [facility] HEMATOLOGY [place] [address] Scheduled Procedures Name Priority Associated Diagnoses Date/Ti me EGD, UPPER GI ENDOSCOPY (WRVU 2.09) Irritable bowel syndrome with constipation 08/29/2024 1:00 PM EST COLONOSCOPY, DIAGNOSTIC (WRVU 3.26) Irritable bowel syndrome with constipation 08/29/2024 1:00 PM EST documented as of this encounter Visit Diagnoses Not on filedocumented in this encounter Care Teams Laundry Worker Relationship Specialty Start Date End Date Luis E Narayan MD [facility] [address] [place] [address] PCP - General Family Medicine 03/26/19 01/19/22 documented as of this encounter
--- OUTSIDE RECORDS SUMMARY | 2024-08-20 16:01 | XMS_ITS | Encounter Summary ---
Author Organization [facility] [place] [address] Care Team Providers Care Guard Range Name Role Phone Luis E Narayan MD Primary Care Provider [phone]- [phone] Reason for Visit * Consultation (Routine) - Closed Specialty Diagnoses / Procedures Referred By Gonzalez kumari Referred To Contact Ophthalmology Diagnoses amyloid pterygium os Moiz Ontiveros, OD [address] [place] [address] Juanpablo Hernandez MD [facility] [place] [address] Referral ID Status Reason Start Date Expiration Date V isits Requested Visits Authorized [id number] Closed Consult, Test & Treat PCP Updated and/or Approved 06/13/2019 06/12/2020 1 1 Encounter Details Date Type Department Care Team (Latest Contact Info) Description 03/31/2020 10:00 AM EDT Office [place] [address] Juanpablo Hernandez MD [facility] OPHTHALMOLOGY [place], [place] [phone] Diabetic polyneuropathy associated with type 2 diabetes [...] 1:00 PM EST Hospital Encounter [place] [address] Roland Gooden MD [facility] [place] [address] 08/29/2024 1:00 PM EST - 08/29/2024 2:00 PM EST [place] [phone] Roland Gooden MD [facility] [place] [address] EGD, UPPER GI ENDOSCOPY (WRVU 2.09) 10/02/2024 1:00 PM EDT Office [place] [phone] Juanpablo Hernandez MD [facility] [place] [address] 10/21/2024 9:30 AM EDT Office Visit Internal Medicine at [facility] [address] [place] [phone] Daryn Garrett MD [facility] DR LILI WALKER [place] [address] 01/30/2025 1:30 PM EDT Laboratory Appointment Lab at [facility] Hematology Oncology [address] [place] [phone] 01/30/2025 3:[address] [place] [phone] Arturo Cordero MD [facility] DR HEMATOLOGY [place] [address] 01/30/2025 4:15 PM EDT Office Visit Hematology [place] [address] Arturo Cordero MD [facility] DR HEMATOLOGY [place] [address] Scheduled Procedures Name Priority Associated Diagnoses Date/Ti [...] diabetes mellitus Benign tumor of conjunctiva, left Irritable bowel syndrome with constipation Irritable bowel syndrome documented in this encounter Care Teams Guard Range Relationship Specialty Start Date End Date Luis E Narayan MD [facility] [address] [place] [address] PCP - General Family Medicine 03/26/19 01/19/22 documented as of this encounter
--- OUTSIDE RECORDS SUMMARY | 2024-08-20 16:02 | XMS_ITS | Encounter Summary ---
Author Organization [facility] Address [facility] [place] [address] Care Team Providers Care Social Work Assistant Name Role Phone Daryn Garrett MD Primary Care Provider Reason for Visit * Reason Onset Date Comments Medication Refill 12/24/2019 Encounter Details Date Type Department Care Team (Late st Contact Info) Description 12/24/2019 Refill Family Medicine at [facility] [address] [place] [address] Luis E Narayan MD [facility] DR LILI W[place] [address] Type 2 diabetes mellitus without long-term current [...] 1:00 PM EST Hospital [place] [phone] Roland Gooden MD [facility] [place] [address] 08/29/2024 1:00 PM EST - 08/29/2024 2:00 PM EST [place] [phone] Roland Gooden MD [facility] [address] EGD, UPPER GI ENDOSCOPY (WRVU 2.09) 10/02/2024 1:00 PM EDT [place] [phone] Juanpablo Hernandez MD [facility] [place] [address] 10/21/2024 9:30 AM EDT Office Visit Internal Medicine at [address] [phone] Daryn Garrett MD [facility] DR LILI WALKER [place] [address] 01/30/2025 1:30 PM EDT Laboratory Appointment Lab at [facility] Hematology Oncology [address] [place] [phone] 01/30/2025 3:[address] [place] [phone] Arturo Cordero MD [facility] DR HEMATOLOGY [place] [address] 01/30/2025 4:15 PM EDT Office Visit Hematology and Oncology at [facility] [place] [address] Arturo Cordero MD [facility] DR HEMATOLOGY [place] [address] Scheduled Procedures Name Priority Associated Diagnoses Date/Ti me EGD, UPPER GI ENDOSCOPY (WRVU 2.09) Irritable bowel syndrome with constipation 08/29/2024 1:00 PM EST COLONOSCOPY, DIAGNOSTIC (WRVU 3.26) Irritable bowel syndrome with constipation 08/29/2024 1:00 PM EST documented as of this encounter Results * Comprehensive metabolic panel (non-fasting) (01/13/2020 10:13 AM EDT) Glucose 156 65 - 199 mg/dL [facility] Comment:Diabetes: >=200 mg/d L plus symptoms Blood Urea Nitrogen 17 8 - 18 mg/dL [facility] Creatinine 0.86 0.70 - 1.20 mg/dL [facility] Sodium 141 135 - 145 mmol/L [facility] Potassium 4.3 3.5 - 5.0 mmol/L [facility] Comment: Please note: ??Patients with WBC >100,000 may have falsely elevated Potassium levels. ??For accurate Potassium quantification in these patients send serum separator tube (gold top) for subsequent determinations. ??Contact the Clinical Chemistry Laboratory if there are any questions. Chloride 105 98 - 107 mmol/L [facility] Carbon Dioxide 24 22 - 31 mmol/L [facility] Anion Gap 12 5 - 15 mmol/L [facility] Calcium 9.4 8.5 - 10.5 mg/dL [facility] Protein, Total 6.7 6.1 - 8.0 gm/dL [facility] Albumin 4.2 3.2 - 5.2 gm/dL [facility] Aspartate Aminotransferase 18 0 - 30 unit/L [facility] Alanine Aminotransferase 25 0 - 30 unit/L [facility] Alkaline Phosphatase 88 35 - 105 unit/L [facility] Bilirubin, Total 0.3 0.2 - 1.3 mg/dL [facility] Est Glomerular Filtration Rate 73 >=60 mL/min/1. 73 m?? [facility] Comment: The eGFR was calculated using the CKD-EPI equation. As with all creatinine based estimates of kidney function, eGFR values calculated with the CKD-EPI equation are not accurate in patients with acute kidney failure, extremes of body mass or the acutely ill. [email or web address]AM[facility] eGFR 85 >=60 mL/min/1. 73 m?? [facility] Comment: The eGFR was calculated using the CKD-EPI equation. As with all creatinine based estimates of kidney function, eGFR values calculated with the CKD-EPI equation are not accurate in patients with acute kidney failure, extremes of body mass or the acutely ill. [email or web address]/[email or web address] Blood specimen (specimen) 01/13/2020 10:13 AM EDT 01/13/2020 10:22 AM EDT Narrative Resulting Agency Comment Spec In Lab Luis E Narayan MD CHEMISTRY ORDERABLE S [facility] [place] [address] * (ABNORMAL) Hemoglobin A1c (01/13/2020 10:13 AM EDT) Hemoglobin A1c 6.9(H) 4.3 - 5.6 % [facility] [...] Mellitus, Diabetes Care 2013; 36: Suppl. 1, D67-85 Estimated Average Glucose 151 mg/dL [facility] Comment: eAG equivalents [...] into estimated average glucose values. ??Diabetes Care 2008:31(8):6474-7834. Blood specimen (specimen) 01/13/2020 10:13 AM EDT 01/13/2020 10:22 AM EDT Narrative Resulting Agency Comment Spec In Lab Luis E Narayan MD CHEMISTRY ORDERABLE S [facility] [place] [address] documented in this encounter Visit Diagnoses Diagnosis Type 2 diabetes mellitus without long-term current use of insulin Irritable bowel syndrome with constipation Irritable bowel syndrome documented in this encounter Care Teams Social Work Assistant Relationship Specialty Start Date End Date Daryn Garrett MD [facility]ILI [place] [address] PCP - General 04/10/24 documented as of this encounter
--- OUTSIDE RECORDS SUMMARY | 2024-08-20 16:02 | XMS_ITS | Encounter Summary ---
Author Organization [facility] [place] [address] Care Team Providers Care Helicopter Crew Chief Name Role Phone Luis E Narayan MD Primary Care Provider Reason for Referral * Psychiatric (Routine) - Specialty Diagnoses / Procedures Referred By Gonzalez kumari Referred To Contact Neuropsychology Diagnoses Cognitive and behavioral changes Amy Aguiar MD [facility] [place] [address] Referral ID Status Reason Start Date Expiration Date V isits Requested Visits Authorized [id number] Consult, Test & Treat 08/05/2019 02/01/2020 1 1 Encounter Details Date Type Department Care Team (Late st Contact Info) Description 08/05/2019 1:45 PM EST [place] [address] Alber Spann MD [facility] [place] [address] Amy Aguiar MD [facility] [place] [address] Cognitive and behavioral changes Social History Tobacco [...] Patient states she was taken to [facility] and it was initially thought that she is having a clot in her body and thus underwent echocardiograms, ultrasounds of her lower extremities and all were negative. 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 Patient states she [facility] stop steroids and gave her breathing treatments. 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 She states her [...] uses inhalerswith good effect ??? Atherosclerosis of [place] coronary artery of [place] heart with angina pectoris 10/09/2007 History [...] Medina MD at [facility] Medications: Current Outpatient Medications on File Prior to Visit Medication Sig Dispense Refill ??? fluticasone propionate (FLONASE) 50 mcg/actuation [place], Suspension 1 spray by Each Nare route [...] and lateral aspects of feet Vibration via Fast Society tuning fork (1-8): reduced at big toes [...] Zana Aguiar MD Clinical Neurophysiology Fellow Pager: [phone] 08/05/2019 CC: Luis E Narayan MD, Luis [...] 1:00 PM EST Hospital Encounter [place] [address] Roland Gooden MD [facility] [place] [address] 08/29/2024 1:00 PM EST - 08/29/2024 2:00 PM EST Surgery [place] [address] Roland Gooden MD [facility] [place] [address] EGD, UPPER GI ENDOSCOPY (WRVU 2.09) 10/02/2024 1:00 PM EDT Office Visit Ophthalmology at [place] [phone] Juanpablo Hernandez MD [facility] [place] [address] 10/21/2024 9:30 AM EDT Office Visit Internal Medicine at [address] [place] [phone] Daryn Garrett MD [facility] DR LILI [place] [address] 01/30/2025 1:30 PM EDT Laboratory Appointment Lab at [facility] Hematology Oncology [address] [place] [phone] 01/30/2025 3:[address] Scan at [place] [phone] Arturo Cordero MD [facility] [place] [address] 01/30/2025 4:15 PM EDT Office Visit Hematology [place] [phone] Arturo Cordero MD [facility] [place] [address] Scheduled Procedures Name Priority Associated Diagnoses Date/Ti [...] PM EST) Paraneo Eval Interpretation SEE COMMENTS [facility] Comment: No informative autoantibodies were detected in the Paraneoplastic Evaluation. However, a negative result does not exclude neurological autoimmunity with or without associated neoplasia. Sensitivity and specificity of antibody testing are enhanced by testing both serum and CSF. Test Performed by: [place] [address] Signal Fitter: Jose G Jefferson M.D. Ph.D.; CLIA# [id number] EDITA-1 (Anti-Neuronal Nuclear Ab, Type 1) (NOVEMBER) Negative <1:240 titer [facility] Comment: Test Performed by: [place] [address] Signal Fitter: Jose G Jefferson M.D. Ph.D.; CLIA# [id number] EDITA-2 (Anti-Neuronal Nuclear Ab,Type 2) (NOVEMBER) Negative <1:240 titer [facility] Comment: ADDITIONAL INFORMATION This test was developed and its performance characteristics determined by [facility] in a manner consistent with CLIA requirements. This test has not been cleared or approved by the U.S. Food and Drug Administration. Test Performed by: [place] [address] Signal Fitter: Jose G Jefferson M.D. Ph.D.; CLIA# [id number] EDITA-3 (Anti-Neuronal Nuclear Ab, Type 3) (NOVEMBER) Negative <1:240 titer [facility] Comment: ADDITIONAL INFORMATION This test was developed and its performance characteristics determined by [facility] in a manner consistent with CLIA requirements. This test has not been cleared or approved by the U.S. Food and Drug Administration. Test Performed by: [facility] [place] [address] Signal Fitter: Jose G Jefferson M.D. Ph.D.; CLIA# [id number] AGNA-1 (Anti-Glial Nuclear Ab, Type 1) (NOVEMBER) Negative <1:240 titer [facility] Comment: ADDITIONAL INFORMATION This test was developed and its performance characteristics determined by [facility] in a manner consistent with CLIA requirements. This test has not been cleared or approved by the U.S. Food and Drug Administration. Test Performed by: [facility] [place] [address] Signal Fitter: Jose G Jefferson M.D. Ph.D.; CLIA# [id number] WIRELESS TELEGRAPHER-1 (Purkinje Cell Cytoplasmic Ab-Type 1) (NOVEMBER) Negative <1:240 titer [facility] Comment: ADDITIONAL INFORMATION This test was developed and its performance characteristics determined by [facility] in a manner consistent with CLIA requirements. This test has not been cleared or approved by the U.S. Food and Drug Administration. Test Performed by: [facility] [place] [address] Signal Fitter: Jose G Jefferson M.D. Ph.D.; CLIA# [id number] WIRELESS TELEGRAPHER-2 (Purkinje Cell Cytoplasmic Ab-Type 2) (NOVEMBER) Negative <1:240 titer [facility] Comment: ADDITIONAL INFORMATION This test was developed and its performance characteristics determined by [facility] in a manner consistent with CLIA requirements. This test has not been cleared or approved by the U.S. Food and Drug Administration. Test Performed by: [facility] [place] [address] Signal Fitter: Jose G Jefferson M.D. Ph.D.; CLIA# [id number] WIRELESS TELEGRAPHER-Type TR (Purkinje Cell Cytoplasmic Ab-Type Tr) (NOVEMBER) Negative <1:240 titer [facility] Comment: ADDITIONAL INFORMATION This test was developed and its performance characteristics determined by [facility] in a manner consistent with CLIA requirements. This test has not been cleared or approved by the U.S. Food and Drug Administration. Test Performed by: [facility] [place] [address] Signal Fitter: Jose G Jefferson M.D. Ph.D.; CLIA# [id number] Amphiphysin Antibody (NOVEMBER) Negative <1:240 titer [facility] Comment: ADDITIONAL INFORMATION This test was developed and its performance characteristics determined by [facility] in a manner consistent with CLIA requirements. This test has not been cleared or approved by the U.S. Food and Drug Administration. Test Performed by: [facility] [place] [address] Signal Fitter: Jose G Jefferson M.D. Ph.D.; CLIA# [id number] CRMP-5-IgG (NOVEMBER) Negative <1:240 titer [facility] Comment: ADDITIONAL INFORMATION This test was developed and its performance characteristics determined by [facility] in a manner consistent with CLIA requirements. This test has not been cleared or approved by the U.S. Food and Drug Administration. Test Performed by: [facility] [place] [address] Signal Fitter: Jose G Jefferson M.D. Ph.D.; CLIA# [id number] Striated Muscle Ab Negative <1:120 titer [facility] Comment: ADDITIONAL INFORMATION This test was developed and its performance characteristics determined by [facility] in a manner consistent with CLIA requirements. This test has not been cleared or approved by the U.S. Food and Drug Administration. Test Performed by: [facility] [place] [address] Signal Fitter: Jose G Jefferson M.D. Ph.D.; CLIA# [id number] P/Q-Type Ca Channel Ab (NOVEMBER) 0.00 <=0.02 nmol/L [facility] Comment: ADDITIONAL INFORMATION This test was developed and its performance characteristics determined by [facility] in a manner consistent with CLIA requirements. This test has not been cleared or approved by the U.S. Food and Drug Administration. Test Performed by: [facility] [place] [address] Signal Fitter: Jose G Jefferson M.D. Ph.D.; CLIA# [id number] N-Type Ca Channel Ab 0.00 <=0.03 nmol/L [facility] Comment: ADDITIONAL INFORMATION This test was developed and its performance characteristics determined by [facility] in a manner consistent with CLIA requirements. This test has not been cleared or approved by the U.S. Food and Drug Administration. Test Performed by: [facility] [place] [address] Signal Fitter: Jose G Jefferson M.D. Ph.D.; CLIA# [id number] AChR Gang Neuronal Ab 0.00 <=0.02 nmol/L [facility] Comment: ADDITIONAL INFORMATION This test was developed and its performance characteristics determined by [facility] in a manner consistent with CLIA requirements. This test has not been cleared or approved by the U.S. Food and Drug Administration. Test Performed by: [facility] [place] [address] Signal Fitter: Jose G Jefferson M.D. Ph.D.; CLIA# [id number] Neuronal (V-G) K+ Channel Ab (NOVEMBER) 0.00 <=0.02 nmol/L [facility] Comment: ADDITIONAL INFORMATION This test was developed and its performance characteristics determined by [facility] in a manner consistent with CLIA requirements. This test has not been cleared or approved by the U.S. Food and Drug Administration. Test Performed by: [facility] [place] [address] Signal Fitter: Jose G Jefferson M.D. Ph.D.; CLIA# [id number] Blood specimen (specimen) Venous Draw / Unknown 08/05/2019 3:34 PM EST 08/12/2019 9:21 AM EST Narrative Resulting Agency Comment Spec In Lab Amy Aguiar MD LAB SEND OUT ORD ERABLES [facility] [place] [address] * Vitamin B6 (08/05/2019 3:34 PM EST) [facility] Vitamin B6 (NOVEMBER) 5 5 - 50 mcg/L [facility] Comment: ADDITIONAL INFORMATION This test was developed and its performance characteristics determined by [facility] in a manner consistent with CLIA requirements. This test has not been cleared or approved by the U.S. Food and Drug Administration. Test Performed by: [facility] [address] [place] [address] Signal Fitter: Jose G Jefferson M.D. Ph.D.; CLIA# [id number] Blood specimen (specimen) 08/05/2019 3:34 PM EST 08/05/2019 4:07 PM EST Narrative Resulting Agency Comment Spec In Lab Alber Spann MD LAB SEND OUT ORD ERABLES [facility] [place] [address] * Protein Electrophoresis, serum (08/05/2019 3:34 PM EST) [facility] Total Prot Electrophoresis 6.6 6.1 - 8.0 gm/dL [facility] Albumin Electrophoresis 4.42 3.60 - 6.00 gm/dL [facility] Alpha 1 Globulin 0.17 0.10 - 0.30 gm/dL [facility] Alpha 2 Globulin 0.67 0.40 - 0.90 gm/dL [facility] Beta Globulin 0.70 0.50 - 1.00 gm/dL [facility] Gamma Globulin 0.65 0.50 - 1.30 gm/dL [facility] M1 Band None Detected None Detected [facility] Blood specimen (specimen) 08/05/2019 3:34 PM EST 08/05/2019 3:40 PM EST Narrative Resulting Agency Comment Spec In Lab Alber Spann MD CHEMISTRY ORDERA BLES [facility] [place] [address] documented in this encounter Visit Diagnoses Diagnosis Cognitive and behavioral changes Other signs and symptoms involving cognition Irritable bowel syndrome with constipation Irritable bowel syndrome documented in this encounter Care Teams Helicopter Crew Chief Relationship Specialty Start Date End Date Luis E Narayan MD [facility] [address] [place] [address] PCP - General Family Medicine 03/26/19 01/19/22 documented as of this encounter
--- OUTSIDE RECORDS SUMMARY | 2024-08-20 16:02 | XMS_ITS | Encounter Summary ---
Author Organization [facility] Address [facility] [place] [address] Care Team Providers Care Physical Therapy Director Name Role Phone Luis E Narayan MD Primary Care Provider [phone] Reason for Visit * Consultation (Routine) - Closed Specialty Diagnoses / Procedures Referred By Gonzalez kumari Referred To Contact Sleep Center Diagnoses TITO (obstructive sleep apnea) Procedures PRG POLYLSOM 6+ YRS SLEEP W CPAP W 4+ ADDL ABHILASH Jhonny Garrett MD [facility] [place] [address] [facility] Sleep Medicine [address] [place] [address] Referral ID Status Reason Start Date Expiration Date V isits Requested Visits Authorized [id number] Closed Test Only 08/02/2019 01/30/2020 1 1 Encounter Details Date Type Department Care Team (Late st Contact Info) Description 08/13/2019 7:30 PM EST Procedure visit Sleep Center at [address] [place] [address] Jhonny Morataya MD [facility] [place] [address] TITO (obstructive sleep apnea) Social [...] Dr Morataya after 8 weeks on treatment. [facility] REPORT of Split-Night Polysomnography [...] 0.0 Hypopneas & RERAs Hypopnea Definitions: Hypopnea* [facility] Hypopnea AAS Central Hypopneas Hypopneas All RERA [...] Index (Total): 0.0 2.9 0.0 2.9 4.1 *[facility]-defined hypopneas include only hypopneas with a >=4% [...] PM EST Hospital Encounter [place] [phone] Roland Gooden MD [facility] [place] [address] 08/29/2024 1:00 PM EST - 08/29/2024 2:00 PM EST Surgery [place] [phone] Roland Gooden MD [facility] [place] [address] EGD, UPPER GI ENDOSCOPY (WRVU 2.09) 10/02/2024 1:00 PM EDT Office [place] [phone] Juanpablo Hernandez MD [facility] [place] [address] 10/21/2024 9:30 AM EDT Office Visit Internal Medicine at [facility] [address] [place] [address] Daryn Garrett MD [facility] DR [address] [place] [address] 01/30/2025 1:30 PM EDT Laboratory Appointment Lab at [facility] Hematology Oncology [address] [place] [phone] 01/30/2025 3:[address] [place] [phone] Arturo Cordero MD [facility] [place] [address] 01/30/2025 4:15 PM EDT Office Visit Hematology [place] [phone] Arturo Cordero MD [facility] [address] [place] [address] Scheduled Procedures Name Priority Associated Diagnoses Date/Ti [...] syndrome documented in this encounter Care Teams Physical Therapy Director Relationship Specialty Start Date End Date Luis E Narayan MD [facility] [address] [place] [address] PCP - General Family Medicine 03/26/19 01/19/22 documented as of this encounter
--- OUTSIDE RECORDS SUMMARY | 2024-08-20 16:02 | XMS_ITS | Encounter Summary ---
Author Organization [facility] Address [facility] [place] [address] Care Team Providers Care Administrative Project Coordinator Name Role Phone Luis E Narayan MD Primary Care Provider [phone] Reason for Visit * Reason Onset Date Comments Medication Refill 09/04/2019 Encounter Details Date Type Department Care Team (Late st Contact Info) Description 09/04/2019 Refill Family Medicine at [facility] [address] [place] [address] Bonny Emanuel MD [address] [place] [address] Social History Tobacco Use Types Packs/Day Years [...] 1:00 PM EST Hospital Encounter [place] [address] Roland Gooden MD [facility] [place] [address] 08/29/2024 1:00 PM EST - 08/29/2024 2:00 PM EST Surgery Gastroenterology at [place] [phone] Roland Gooden MD [facility] [place] [address] EGD, UPPER GI ENDOSCOPY (WRVU 2.09) 10/02/2024 1:00 PM EDT Office Visit Ophthalmology at [place] [phone] Juanpablo Hernandez MD [facility] [place] [address] 10/21/2024 9:30 AM EDT Office Visit Internal Medicine at [address] [phone] Daryn Garrett MD [facility] DR [address] [place] [address] 01/30/2025 1:30 PM EDT Laboratory Appointment Lab at [facility] Hematology Oncology [address] [place], [place] [phone] 01/30/2025 3:[address] Scan at [place] [phone] Arturo Cordero MD [facility] [place] [address] 01/30/2025 4:15 PM EDT Office Visit Hematology [place] [address] Arturo Cordeor MD [facility] [place] [address] Scheduled Procedures Name Priority Associated Diagnoses Date/Ti [...] [facility] [address] [place] [address] PCP - General Family Medicine 03/26/19 01/19/22 documented as of this encounter
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
--- OUTSIDE RECORDS SUMMARY | 2024-08-20 16:02 | XMS_ITS | Encounter Summary ---
[place] [address] Care Team Providers Care Nail Feeder Name Role Phone Daryn Garrett MD Primary Care Provider Reason for Visit * Reason Onset Date Comments Medication Refill 09/28/2019 Encounter Details Date Type Department Care Team (Late st Contact Info) Description 09/28/2019 Refill Family Medicine at [facility] [address] [place] [address] Luis E Narayan MD [facility] DR LILI [place] [address] Social History Tobacco Use Types Packs/Day Years [...] PM EST Hospital Encounter Gastroenterology [place] [address] Roland Gooden MD [facility] [place] [address] 08/29/2024 1:00 PM EST - 08/29/2024 2:00 PM EST Surgery Gastroenterology at [place] [phone] Roland Gooden MD [facility] [place] [address] EGD, UPPER GI ENDOSCOPY (WRVU 2.09) 10/02/2024 1:00 PM EDT Office Visit Ophthalmology at [place] [phone] Juanpablo Hernandez MD [facility] [place] [address] 10/21/2024 9:30 AM EDT Office Visit Internal Medicine at [address] [phone] Daryn Garrett MD [facility] DR LILI [place] [address] 01/30/2025 1:30 PM EDT Laboratory Appointment Lab at [facility] Hematology Oncology [address] [place], [place] [phone] 01/30/2025 3:[address] Scan at [place] [phone] Arturo Cordero MD [facility] H[place]ATOLOG[place] [address] 01/30/2025 4:15 PM EDT Office Visit Hematology [place] [address] Arturo Cordero MD [facility] [place]ATOLOG[place] [address] Scheduled Procedures Name Priority Associated Diagnoses Date/Ti me EGD, UPPER GI ENDOSCOPY (WRVU 2.09) Irritable bowel syndrome with constipation 08/29/2024 1:00 PM EST COLONOSCOPY, DIAGNOSTIC (WRVU 3.26) Irritable bowel syndrome with constipation 08/29/2024 1:00 PM EST documented as of this encounter Visit Diagnoses Not on filedocumented in this encounter Care Teams Nail Feeder Relationship Specialty Start Date End Date Daryn Garrett MD [facility] DR LILI [place] [address] PCP - General 04/10/24 documented as of this encounter
--- OUTSIDE RECORDS SUMMARY | 2024-08-20 16:02 | XMS_ITS | Encounter Summary ---
Author Organization [facility] Address [facility] [place] [address] Care Team Providers Care Audience Coordinator Name Role Phone Luis E Narayan MD Primary Care Provider +1- [phone] Reason for Visit * Reason Onset Date Comments Medication Refill 01/27/2020 Encounter Details Date Type Department Care Team (Late st Contact Info) Description 01/27/2020 Refill Family Medicine at [facility] [address] [place] [address] Luis E Narayan MD [facility] DR LILI [place] [address] Type 2 diabetes mellitus without long-term current [...] Notes * Telephone Encounter - Ally Mcgarry, [facility] - 01/27/2020 3:32 PM EDT Prescription Refill [...] 1:00 PM EST Hospital Encounter Gastroenterology at [place] [phone] Roland Gooden MD [facility] [place] [address] 08/29/2024 1:00 PM EST - 08/29/2024 2:00 PM EST Surgery [place] [phone] Roland Gooden MD [facility] [place] [address] EGD, UPPER GI ENDOSCOPY (WRVU 2.09) 10/02/2024 1:00 PM EDT Office [place] [phone] Juanpablo Hernandez MD [facility] [place] [address] 10/21/2024 9:30 AM EDT Office Visit Internal Medicine at [address] [place] [phone] Daryn Garrett MD [facility] DR LILI [place] [address] 01/30/2025 1:30 PM EDT Laboratory Appointment Lab at [facility] Hematology Oncology [address] [place] [phone] 01/30/2025 3:[address] [place] [phone] Arturo Cordero MD [facility] DR H[place]AT[place] [address] 01/30/2025 4:15 PM EDT Office Visit Hematology [place] [phone] Arturo Cordero MD [facility] DR HEMAT[place] [address] Scheduled Procedures Name Priority Associated Diagnoses Date/Ti [...] syndrome documented in this encounter Care Teams Audience Coordinator Relationship Specialty Start Date End Date Luis E Narayan MD [facility] DR LIL[address] [place] [address] PCP - General Family Medicine 03/26/19 01/19/22 documented as of this encounter
--- OUTSIDE RECORDS SUMMARY | 2024-08-20 16:02 | XMS_ITS | Encounter Summary ---
Author Organization [facility] [place] [address] Care Team Providers Care Instrumentation Supervisor Name Role Phone Luis E Narayan MD Primary Care Provider [phone] Reason for Visit * Reason Comments Follow-up Encounter Details Date Type Department Care Team (Late st Contact Info) Description 12/23/2019 8:15 AM EDT Office [place] [address] Maurilio Spann MD [facility] [place] [address] Amy Aguiar MD [facility] [place] [address] Cognitive and behavioral changes Social History Tobacco [...] sentences. Patient states she was taken to and it was initially thought that she is having a clot in her body and thus underwent echocardiograms, ultrasounds of her lower extremities and all were negative. 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 She states her [...] uses inhalerswith good effect ??? Atherosclerosis of [place] coronary artery [...] 27.41) performed by Avila Medina MD at [facility] Medications: Current Outpatient Medications [...] 0 ??? fluticasone propionate (FLONASE) 50 mcg/actuation [place], Suspension 1 spray by Each Nare route [...] and lateral aspects of feet Vibration via Vivakor tuning fork (1-8): reduced at big toes [...] Amy Aguiar MD Clinical Neurophysiology Fellow Pager: [phone] 12/23/2019 documented in this encounter Plan of Treatment Upcoming Encounters Date Type Department Care Team (Latest Contact Info) Description 08/29/2024 1:00 PM EST Hospital Encounter Gastroenterology at [place] [phone] Roland Gooden MD [facility] [place] [address] 08/29/2024 1:00 PM EST - 08/29/2024 2:00 PM EST Surgery [place] [phone] Roland Gooden MD [facility] [place] [address] EGD, UPPER GI ENDOSCOPY (WRVU 2.09) 10/02/2024 1:00 PM EDT Office [place] [phone] Juanpablo Hernandez MD [facility] [place] [address] 10/21/2024 9:30 AM EDT Office Visit Internal Medicine at [address] [phone] Daryn Garrett MD [facility] DR LILI [place] [address] 01/30/2025 1:30 PM EDT Laboratory Appointment Lab at [facility] Hematology Oncology [address] [place] [phone] 01/30/2025 3:[address] [place] [address] Arturo Cordero MD [facility] HEMATOLOGY [place] [address] 01/30/2025 4:15 PM EDT Office Visit Hematology [place] [address] Arturo Cordero MD [facility] DR HEMATOLOGY [place] [address] Scheduled Procedures Name Priority Associated Diagnoses Date/Ti [...] syndrome documented in this encounter Care Teams Instrumentation Supervisor Relationship Specialty Start Date End Date Luis E Narayan MD [facility] [address] [place] [address] PCP - General Family Medicine 03/26/19 01/19/22 documented as of this encounter
--- OUTSIDE RECORDS SUMMARY | 2024-08-20 16:02 | XMS_ITS | Encounter Summary ---
[place] [address] Care Team Providers Care Automobile Repossessor Name Role Phone Luis E Narayan MD Primary Care Provider [phone]- [phone] Encounter Details Date Type Department Care Team (Late st Contact Info) Description 01/03/2020 [place] [phone] Aleisha York APRN Social History Tobacco Use Types Packs/Day Years [...] this morning. The Prior Auth number is [id number], effective today. We will get a fax to our office as well. I talked to Rikki regarding imaging. Surgical date 06/28/2020, and first postop date was 07/17/2019. We discussed rationale for CT abd with and without contrast. Case was updated. Peer to Peer set up for Monday the am at 9:30. Dr. Hughes. Avila Medina MD Hamill Lemay, Kelley, FOLDED CLOTH TAPER ?? Aleisha Can you handle this. The [...] 9:02 AM EDT To: Avila Medina MD, [facility] Urology Nurse, * Subject: ALIZE MANJARREZ [[id number]] ? Good morning, ALIZE MANJARREZ [[id number]] is currently scheduled for a CT Abdomen WWO Contrast on 01/13/2020. ??We have received notification from [employer] on behalf of [place] Medicaid that our [...] a peer to peer review with the Reinsurance Accountant by calling [employer] at [phone] and using order # [id number] as reference. ??The deadline for completion of the peer to peer is 14 calendar days. ?? Please let me know if you'd like to change the procedure to the recommended alternative, a CT Abdomen W contrast, and I will call [employer] and to get it changed and approved. ?? To cancel or reschedule the patient's scan, please contact the radiology dept at [facility]. Thank you, Laura Orozco Clinical Authorization Services documented in this encounter Plan of Treatment Upcoming Encounters Date Type Department Care Team (Latest Contact Info) Description 08/29/2024 1:00 PM EST Hospital Encounter [place] [phone] Roland Gooden MD [facility] [place] [address] 08/29/2024 1:00 PM EST - 08/29/2024 2:00 PM EST [place] [phone] Roland Gooden MD [facility] [place] [address] EGD, UPPER GI ENDOSCOPY (WRVU 2.09) 10/02/2024 1:00 PM EDT Office [place] [phone] Juanpablo Hernandez MD [facility] OPHTHALMOLOGY [place], [place] [address] 10/21/2024 9:30 AM EDT Office Visit Internal Medicine at [address] [phone] Daryn Garrett MD [facility] DR LILI [place] [address] 01/30/2025 1:30 PM EDT Laboratory Appointment Lab at [facility] Hematology Oncology [address] [place] [phone] 01/30/2025 3:[address] [place] [address] Arturo Cordero MD [facility] HEMATOLOGY [place] [address] 01/30/2025 4:15 PM EDT Office Visit Hematology [place] [address] Arturo Cordero MD [facility] DR HEMATOLOGY [place] [address] Scheduled Procedures Name Priority Associated Diagnoses Date/Ti me EGD, UPPER GI ENDOSCOPY (WRVU 2.09) Irritable bowel syndrome with constipation 08/29/2024 1:00 PM EST COLONOSCOPY, DIAGNOSTIC (WRVU 3.26) Irritable bowel syndrome with constipation 08/29/2024 1:00 PM EST documented as of this encounter Visit Diagnoses Not on filedocumented in this encounter Care Teams Automobile Repossessor Relationship Specialty Start Date End Date Luis E Narayan MD [facility] DR LILI W[place] [address] PCP - General Family Medicine 03/26/19 01/19/22 documented as of this encounter
--- OUTSIDE RECORDS SUMMARY | 2024-08-20 16:02 | XMS_ITS | Encounter Summary ---
Author Organization [facility] Address [facility] [place] [address] Care Team Providers Care Senior Oracle Soa Developer Name Role Phone Luis E Narayan MD Primary Care Provider [phone]- [phone] Reason for Visit * Reason Onset Date Comments Request For Record 02/28/2020 [facility] Encounter Details Date Type Department Care Team (Late st Contact Info) Description 02/28/2020 Telephone Internal Medicine at [facility] [address] [place] [phone] Denisse Hunter CCMA Request For Record ([facility]) Social History Tobacco Use Types Packs/Day Years [...] 1:00 PM EST Hospital Encounter Gastroenterology at [place] [phone] Roland Gooden MD [facility] [place] [address] 08/29/2024 1:00 PM EST - 08/29/2024 2:00 PM EST Surgery Gastroenterology at [place] [phone] Roland Gooden MD [facility] [place] [address] EGD, UPPER GI ENDOSCOPY (WRVU 2.09) 10/02/2024 1:00 PM EDT Office Visit Ophthalmology at [place] [phone] Juanpablo Hernandez MD [facility] [address] 10/21/2024 9:30 AM EDT Office Visit Internal Medicine at [address] [phone] Daryn Garrett MD [facility] DR LILI [place] [address] 01/30/2025 1:30 PM EDT Laboratory Appointment Lab at [facility] Hematology Oncology [address] [place] [phone] 01/30/2025 3:[address] [place] [address] Arturo Cordero MD [facility] [place] [address] 01/30/2025 4:15 PM EDT Office Visit Hematology and Oncology at [place] [phone] Arturo Cordero MD [facility] [place] [address] Scheduled Procedures Name Priority Associated Diagnoses Date/Ti me EGD, UPPER GI ENDOSCOPY (WRVU 2.09) Irritable bowel syndrome with constipation 08/29/2024 1:00 PM EST COLONOSCOPY, DIAGNOSTIC (WRVU 3.26) Irritable bowel syndrome with constipation 08/29/2024 1:00 PM EST documented as of this encounter Visit Diagnoses Not on filedocumented in this encounter Care Teams Senior Oracle Soa Developer Relationship Specialty Start Date End Date Luis E Narayan MD [facility] [address] [place] [address] PCP - General Family Medicine 03/26/19 01/19/22 documented as of this encounter
--- OUTSIDE RECORDS SUMMARY | 2024-08-20 16:02 | XMS_ITS | Encounter Summary ---
Author Organization [facility] Address [facility] [place] [address] Care Team Providers Care Rapid Transit Operator Name Role Phone Daryn Garrett MD Primary Care Provider Reason for Visit * Reason Onset Date Comments Medication Refill 08/01/2019 Encounter Details Date Type Department Care Team (Late st Contact Info) Description 08/01/2019 Refill Family Medicine at [facility] [address] [place] [address] Bonny Emanuel MD [address] [place] [place] [address] Social History Tobacco Use Types Packs/Day Years [...] 1:00 PM EST Hospital En[place] [address] Roland Gooden MD [facility] [place] [address] 08/29/2024 1:00 PM EST - 08/29/2024 2:00 PM EST Surgery Gastroenterology at [place] [phone] Roland Gooden MD [facility] [place] [address] EGD, UPPER GI ENDOSCOPY (WRVU 2.09) 10/02/2024 1:00 PM EDT Office Visit Ophthalmology at [place] [phone] Juanpablo Hernandez MD [facility] [place] [address] 10/21/2024 9:30 AM EDT Office Visit Internal Medicine at [address] [phone] Daryn Garrett MD [facility] DR LILI WALKER [place] [address] 01/30/2025 1:30 PM EDT Laboratory Appointment Lab at [facility] Hematology Oncology [address] [place], [place] [phone] 01/30/2025 3:[address] Scan at [place] [phone] Arturo Cordero MD [facility] HEMATOLOGY [place] [address] 01/30/2025 4:15 PM EDT Office Visit Hematology [place] [address] Arturo Cordero MD [facility] HEMATOLOGY [place] [address] Scheduled Procedures Name Priority Associated Diagnoses Date/Ti me EGD, UPPER GI ENDOSCOPY (WRVU 2.09) Irritable bowel syndrome with constipation 08/29/2024 1:00 PM EST COLONOSCOPY, DIAGNOSTIC (WRVU 3.26) Irritable bowel syndrome with constipation 08/29/2024 1:00 PM EST documented as of this encounter Visit Diagnoses Not on filedocumented in this encounter Care Teams Rapid Transit Operator Relationship Specialty Start Date End Date Daryn Garrett MD [facility] DR LILI WALKER [place] [address] PCP - General 04/10/24 documented as of this encounter
--- OUTSIDE RECORDS SUMMARY | 2024-08-20 16:02 | XMS_ITS | Encounter Summary ---
Author Organization [facility] [place] [address] Care Team Providers Care Stationary Engineer Name Role Phone Luis E Narayan MD Primary Care Provider [phone]- [phone] Encounter Details Date Type Department Care Team (Latest Contact Info) Description 07/17/2019 9:20 AM EST Laboratory Appointment Lab [address] [place] [phone] Renal mass, left Social History Tobacco Use [...] 1:00 PM EST Hospital Encounter [place] [phone] Roland Gooden MD [facility] [place] [address] 08/29/2024 1:00 PM EST - 08/29/2024 2:00 PM EST Surgery [place] [phone] Roland Gooden MD [facility] [place] [address] EGD, UPPER GI ENDOSCOPY (WRVU 2.09) 10/02/2024 1:00 PM EDT Office Visit Ophthalmology at [place] [phone] Juanpablo Hernandez MD [facility] [place] [address] 10/21/2024 9:30 AM EDT Office Visit Internal Medicine at [address] [place] [phone] Daryn Garrett MD [facility] DR LILI WALKER [place] [address] 01/30/2025 1:30 PM EDT Laboratory Appointment Lab at [facility] [place]ology Oncology [address] [place] [phone] 01/30/2025 3:[address] Scan at [place] [phone] Arturo Cordero MD [facility] HEMATOLOGY [place] [address] 01/30/2025 4:15 PM EDT Office Visit Hematology [place] [phone] Arturo Cordero MD [facility] HEMATOLOGY [place] [address] Scheduled Procedures Name Priority Associated Diagnoses Date/Ti [...] EST) Glucose 131 65 - 199 mg/dL [facility] Comment:Diabetes: >=200 mg/d L plus symptoms Blood Urea Nitrogen 17 8 - 18 mg/dL [facility] Creatinine 0.84 0.70 - 1.20 mg/dL [facility] Sodium 140 135 - 145 mmol/L [facility] Potassium 4.5 3.5 - 5.0 mmol/L [facility] Comment: Please note: ??Patients with WBC >100,000 may have falsely elevated Potassium levels. ??For accurate Potassium quantification in these patients send serum separator tube (gold top) for subsequent determinations. ??Contact the Clinical Chemistry Laboratory if there are any questions. Chloride 102 98 - 107 mmol/L [facility] Carbon Dioxide 28 22 - 31 mmol/L [facility] Anion Gap 10 5 - 15 mmol/L [facility] Calcium 10.1 8.5 - 10.5 mg/dL [facility] Est Glomerular Filtration Rate 76 >=60 mL/min/1. 73 m?? [facility] Comment: The eGFR was calculated using the CKD-EPI equation. As with all creatinine based estimates of kidney function, eGFR values calculated with the CKD-EPI equation are not accurate in patients with acute kidney failure, extremes of body mass or the acutely ill. http://[employer]/[facility] eGFR 88 >=60 mL/min/1. 73 m?? [facility] Comment: The eGFR was calculated using the CKD-EPI equation. As with all creatinine based estimates of kidney function, eGFR values calculated with the CKD-EPI equation are not accurate in patients with acute kidney failure, extremes of body mass or the acutely ill. http://[employer]/[facility] Blood specimen (specimen) 07/17/2019 9:47 AM EST 07/17/2019 9:56 AM EST Narrative Resulting Agency Comment Spec In Lab Avila Medina MD CHEMISTRY ORDERABLES [facility] [place] [address] documented in this encounter Visit Diagnoses Diagnosis Renal mass, left Unspecified disorder of kidney and ureter Irritable bowel syndrome with constipation Irritable bowel syndrome documented in this encounter Care Teams Stationary Engineer Relationship Specialty Start Date End Date Luis E Narayan MD [facility] [address] [place] [address] PCP - General Family Medicine 03/26/19 01/19/22 documented as of this encounter
--- OUTSIDE RECORDS SUMMARY | 2024-08-20 16:02 | XMS_ITS | Encounter Summary ---
Author Organization [facility] [address] Care Team Providers Care Guest Service Representative Name Role Phone Luis E Narayan MD Primary Care Provider Reason for Visit * Reason Onset Date Comments Bumped Appointment 11/19/2019 Encounter Details Date Type Department Care Team (Late st Contact Info) Description 11/19/2019 Telephone [place] [address] Juanpablo Hernandez MD [facility] [place] [address] Bumped Appointment Social History Tobacco Use Types [...] [place] [address] Roland Gooden MD [facility] [place] [address] 08/29/2024 1:00 PM EST - 08/29/2024 2:00 PM EST Surgery Gastroenterology at [place] [phone] Roland Gooden MD [facility] [place] [place] [address] EGD, UPPER GI ENDOSCOPY (WRVU 2.09) 10/02/2024 1:00 PM EDT Office Visit [place] [phone] Juanpablo Hernandez MD [facility] [place] [address] 10/21/2024 9:30 AM EDT Office Visit Internal Medicine at [address] [phone] Daryn Garrett MD [facility] DR LILI WALKRE [place] [address] 01/30/2025 1:30 PM EDT Laboratory App[facility] [facility] [place] [facility] [place] [address] [place] [phone] 01/30/2025 3:[address] [place] [address] Arturo Cordero MD [facility] HEMATOLOGY [place] [address] 01/30/2025 4:15 PM EDT Office Visit Hematology and Oncology at [facility] [place] [phone] Arturo Cordero MD [facility] DR HEMATOLOGY [place] [address] Scheduled Procedures Name Priority Associated Diagnoses Date/Ti me EGD, UPPER GI ENDOSCOPY (WRVU 2.09) Irritable bowel syndrome with constipation 08/29/2024 1:00 PM EST COLONOSCOPY, DIAGNOSTIC (WRVU 3.26) Irritable bowel syndrome with constipation 08/29/2024 1:00 PM EST documented as of this encounter Visit Diagnoses Not on filedocumented in this encounter Care Teams Guest Service Representative Relationship Specialty Start Date End Date Luis E Narayan MD [facility] [address] [place] [address] PCP - General Family Medicine 03/26/19 01/19/22 documented as of this encounter
--- OUTSIDE RECORDS SUMMARY | 2024-08-20 16:02 | XMS_ITS | Encounter Summary ---
Author Organization [facility] Address [facility] [place] [address] Care Team Providers Care Strike Out Machine Operator Name Role Phone Luis E Narayan MD Primary Care Provider +1- [phone] Encounter Details Date Type Department Care Team (Late st Contact Info) Description 02/04/2020 Telephone Sleep Center at [facility] [address] [place] [phone] Christine Aponte Social History Tobacco Use Types [...] (Latest Contact Info) Description 08/29/2024 1:00 PM [facility] Hospital En[place] [address] Roland Gooden MD [facility] [place] [address] 08/29/2024 1:00 PM EST - 08/29/2024 2:00 PM EST Surgery Gastroenterology at [address] Roland Gooden MD [facility] [place] [address] EGD, UPPER GI ENDOSCOPY (WRVU 2.09) 10/02/2024 1:00 PM EDT Office Visit Ophthalmology at [place] [phone] Juanpablo Hernandez MD [facility] [place] [address] 10/21/2024 9:30 AM EDT Office Visit Internal Medicine at [address] [phone] Daryn Garrett MD [facility] [place] [address] 01/30/2025 1:30 PM EDT Laboratory Appointment Lab [place] [facility] [address] [place], [place] [phone] 01/30/2025 3:[address] Scan at [place] [phone] Arturo Cordero MD [facility] [place] [address] 01/30/2025 4:15 PM EDT Office Visit Hematology and Oncology at [place] [phone] Arturo Cordero MD [facility] DR [place] [address] Scheduled Procedures Name Priority Associated Diagnoses Date/Ti me EGD, UPPER GI ENDOSCOPY (WRVU 2.09) Irritable bowel syndrome with constipation 08/29/2024 1:00 PM EST COLONOSCOPY, DIAGNOSTIC (WRVU 3.26) Irritable bowel syndrome with constipation 08/29/2024 1:00 PM EST documented as of this encounter Visit Diagnoses Not on filedocumented in this encounter Care Teams Strike Out Machine Operator Relationship Specialty Start Date End Date Luis E Narayan MD [facility] [address] [place] [address] PCP - General Family Medicine 03/26/19 01/19/22 documented as of this encounter
--- OUTSIDE RECORDS SUMMARY | 2024-08-20 16:02 | XMS_ITS | Encounter Summary ---
Author Organization [facility] Address [facility] [place] [address] Care Team Providers Care Trucker Hand Name Role Phone Luis E Narayan MD Primary Care Provider Reason for Referral * E-Consultation (Routine) - Specialty Diagnoses / Procedures Referred By Gonzalez kumari Referred To Contact Gynecology Diagnoses Abnormal cervical Papanicolaou smear, unspecified abnormal pap finding Family history of uterine cancer Procedures eConsult to Gynecology (Primary Care Use Only) Luis E Narayan MD [facility] DR [place] [address] Referral ID Status Reason Start Date Expiration Date V isits Requested Visits Authorized [id number] 07/25/2019 07/24/2020 1 1 Encounter Details Date Type Department Care Team (Late st Contact Info) Description 07/25/2019 Orders Only Family Medicine at [facility] [address] [place] [address] Luis E Narayan MD [facility] DR [place] [address] Abnormal cervical Papanicolaou smear, unspecified abnormal pap [...] 1:00 PM EST Hospital Encounter [place] [address] Roland Gooden MD [facility] [place] [address] 08/29/2024 1:00 PM EST - 08/29/2024 2:00 PM EST Surgery Gastroenterology at [place] [phone] Roland Gooden MD [facility] [place] [address] EGD, UPPER GI ENDOSCOPY (WRVU 2.09) 10/02/2024 1:00 PM EDT Office [place] [phone] Juanpablo Hernandez MD [facility] [place] [address] 10/21/2024 9:30 AM EDT Office Visit Internal Medicine at [address] [phone] Daryn Garrett MD [facility] DR [place] [address] 01/30/2025 1:30 PM EDT Laboratory Appointment [place] [facility] [place] [address] [place] [phone] 01/30/2025 3:[address] [place] [address] Arturo Cordero MD [facility] [place] [address] 01/30/2025 4:15 PM EDT Office Visit Hematology [place] [address] Arturo Cordero MD [facility] [place] [address] Scheduled Procedures Name Priority Associated Diagnoses Date/Ti [...] of malignant neoplasm of genital organ, other Irritable bowel syndrome with constipation Irritable bowel syndrome documented in this encounter Care Teams Trucker Hand Relationship Specialty Start Date End Date Luis E Narayan MD [facility] DR LILI [place] [address] PCP - General Family Medicine 03/26/19 01/19/22 documented as of this encounter
--- OUTSIDE RECORDS SUMMARY | 2024-08-20 16:02 | XMS_ITS | Encounter Summary ---
Author Organization [facility] Address [facility] [place] [address] Care Team Providers Care Dependency Counselor Name Role Phone Luis E Narayan MD Primary Care Provider +[phone]- [phone] Reason for Visit * Reason Comments Follow-up Encounter Details Date Type Department Care Team (Latest Contact Info) Description 08/05/2019 10:20 AM EST Office Visit Family Medicine at [facility] [address] [place] [address] Inocencia Grigsby MD [facility] [place] [address] Bipolar affective disorder in remission; Balance problem; [...] 1:00 PM EST Hospital Encounter [place] [address] Roland Gooden MD [facility] [place] [address] 08/29/2024 1:00 PM EST - 08/29/2024 2:00 PM EST Surgery Gastroenterology at [place] [phone] Roland Gooden MD [facility] [place] [address] EGD, UPPER GI ENDOSCOPY (WRVU 2.09) 10/02/2024 1:00 PM EDT Office [place] [address] Juanpablo Hernandez MD [facility] [place] [address] 10/21/2024 9:30 AM EDT Office Visit Internal Medicine at [address] [phone] Daryn Garrett MD [facility] DR LILI [place]ER [place] [address] 01/30/2025 1:30 PM EDT Laboratory Appointment Lab at [facility] Hematology Oncology [address] [place] [address] 01/30/2025 3:[address] [place] [address] Arturo Cordero MD [facility] HEMATOLOGY [place] [address] 01/30/2025 4:15 PM EDT Office Visit Hematology and Oncology at [facility] [address] Arturo Cordero MD [facility] DR HEMATOLOGY [place] [address] Scheduled Procedures Name Priority Associated Diagnoses Date/Ti [...] and other eczema, due to unspecified cause Irritable bowel syndrome with constipation Irritable bowel syndrome documented in this encounter Care Teams Dependency Counselor Relationship Specialty Start Date End Date Luis E Narayan MD [facility] DR LILI WALKER[place] [address] PCP - General Family Medicine 03/26/19 01/19/22 documented as of this encounter
--- OUTSIDE RECORDS SUMMARY | 2024-08-20 16:02 | XMS_ITS | Encounter Summary ---
Author Organization [place] [address] Care Team Providers Care Poultry Husbandry Teacher Name Role Phone Luis E Narayan MD Primary Care Provider Reason for Visit * Reason Comments Procedure Encounter Details Date Type Department Care Team (Latest Contact Info) Description 07/25/2019 2:27 PM EST - 07/25/2019 11:59 PM EST Hospital En[place] [address] Cognitive and behavioral changes Discharge Disposition: Home [...] 04/09/2019 06/22/2020 fluticasone propionate (FLONASE) 50 mcg/actuation [place], Suspension 50 sprays by Each Nare route [...] DROWSY Pre-Procedure Diagnose(s): Cognitive and behavioral changes [facility] Department of Neurology Outpatient EEG Report Name [...] 4 ??? fluticasone propionate (FLONASE) 50 mcg/actuation [place], Suspension 50 sprays by Each Nare route [...] channel digitized electroencephalogram was performed in the [facility] Clinical Neurophysiology Laboratory. The 10/20 international system of electrode placement was used and bipolar and referential electrode montages were recorded. In addition to EEG the patient was monitored for EKGand lateral/vertical eye movements. Video was recorded during the session. The duration of the recording was 25 minutes. ADMINISTRATIVE ACCOUNTANT'S REPORT: Performed by: SR Patient was not [...] Nathan Ortiz MD Clinical Neurophysiology Fellow Pager: [phone] 07/26/2019 Neurology Attending I have personally reviewed the EEG, and I agree with the details as written. The above report was formulated in discussion with me at the time of EEG reading, and I agree with it as documented. Nigel Garcia MD [place] [address] Pager: [phone], #[phone] Email: [email or web address] documented in this encounter Plan of Treatment Upcoming Encounters Date Type Department Care Team (Latest Contact Info) Description 08/29/2024 1:00 PM EST Hospital Encounter [place] [address] Roland Gooden MD [facility] [place] [address] 08/29/2024 1:00 PM EST - 08/29/2024 2:00 PM EST Surgery [place] [address] Roland Gooden MD [facility] [place] [address] EGD, UPPER GI ENDOSCOPY (WRVU 2.09) 10/02/2024 1:00 PM EDT Office [place] [phone] Juanpablo Hernandez MD [facility] [place] [address] 10/21/2024 9:30 AM EDT Office Visit Internal Medicine at [address] [place] [phone] Daryn Garrett MD [facility] DR LILI [place] [address] 01/30/2025 1:30 PM EDT Laboratory Appointment Lab at [facility] [place] Oncology [address] [place] [phone] 01/30/2025 3:[address] [place] [phone] Arturo Cordero MD [facility] DR [place] [address] 01/30/2025 4:15 PM EDT Office Visit Hematology [place] [phone] Arturo Cordero MD [facility] DR [place] [address] Scheduled Procedures Name Priority Associated Diagnoses Date/Ti [...] MD - 07/25/2019 3:00 PM EST Nigel Garcai MD ? 07/28/2019 10:59 PM [facility] Department of Neurology Outpatient EEG Report Name [...] ? ? fluticasone propionate (FLONASE) 50 mcg/actuation [place], Suspension 50 sprays by Each Nare route [...] channel digitized electroencephalogram was performed in the [facility] Clinical Neurophysiology Laboratory. The 10/20 international system of electrode placement was used and bipolar and referential electrode montages were recorded. ??In addition to EEG the patient was monitored for EKG and lateral/vertical eye movements. Video was recorded during the session. The duration of the recording was 25 minutes. ADMINISTRATIVE ACCOUNTANT'S REPORT: Performed by: SR Patient was not [...] Nathan Ortiz MD Clinical Neurophysiology Fellow Pager: [phone] 07/26/2019 Neurology Attending I have personally reviewed the EEG, and I agree with the details as written. ?? The above report was formulated in discussion with me at the time of EEG reading, and I agree with it as documented. Nigel Garcia MD [place] [address] Pager: [phone], #[phone] Email: [email or web address] Sumit Pineda MD NEUROLOGY ORDERABLES documented in this encounter Visit Diagnoses Diagnosis Cognitive and behavioral changes Other signs and symptoms involving cognition Irritable bowel syndrome with constipation Irritable bowel syndrome documented in this encounter Care Teams Poultry Husbandry Teacher Relationship Specialty Start Date End Date Luis E Narayan MD [facility] [place] [address] PCP - General Family Medicine 03/26/19 01/19/22 documented as of this encounter
--- OUTSIDE RECORDS SUMMARY | 2024-08-20 16:02 | XMS_ITS | Encounter Summary ---
Author Organization [facility] Address [facility] [place] [address] Care Team Providers Care Director Risk Name Role Phone Luis E Narayan MD Primary Care Provider Encounter Details Date Type Department Care Team (Late st Contact Info) Description 01/13/2020 1:00 PM EDT Office [place] [address] Avila Medina MD [facility] [place] [address] Malignant neoplasm of kidney, unspecified laterality; Adrenal [...] Left robot assited partial nephrectomy for a [id number] Grade 3 clear cell cancer. All surgical [...] Diagnosis Code ??? 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 Altered [...] adenoma unchanged from prior imaging 03/19/2019. Imp: [id number] Grade 3 Clear Cell renal cancer sp [...] 1:00 PM EST Hospital Encounter [place] [address] Roland Gooden MD [facility] [place] [address] 08/29/2024 1:00 PM EST - 08/29/2024 2:00 PM EST Surgery Gastroenterology at [place] [address] Roland Gooden MD [facility] [place] [address] EGD, UPPER GI ENDOSCOPY (WRVU 2.09) 10/02/2024 1:00 PM EDT Office Visit Ophthalmology at [place] [phone] Juanpablo Hernandez MD [facility] [place] [address] 10/21/2024 9:30 AM EDT Office Visit Internal Medicine at [address] [phone] Daryn Garrett MD [facility] DR LILI [place] [address] 01/30/2025 1:30 PM EDT Laboratory Appointment Lab at [facility] Hematology Oncology [address] [place], [place] [phone] 01/30/2025 3:[address] Scan at [place] [phone] Arturo Cordero MD [facility] [place] [address] 01/30/2025 4:15 PM EDT Office Visit Hematology and Oncology at [place] [phone] Arturo Cordero MD [facility] [place] [address] Scheduled Procedures Name Priority Associated Diagnoses Date/Ti [...] Hypertonicity of bladder Anxiety Anxiety state, unspecified Irritable bowel syndrome with constipation Irritable bowel syndrome documented in this encounter Care Teams Director Risk Relationship Specialty Start Date End Date Luis E Narayan MD [facility] DR LILI [place] [address] PCP - General Family Medicine 03/26/19 01/19/22 documented as of this encounter
--- OUTSIDE RECORDS SUMMARY | 2024-08-20 16:02 | XMS_ITS | Encounter Summary ---
Author Organization Formerly [facility], 1929–[address] [place] [address] Care Team Providers Care Coke Burner Name Role Phone Luis E Narayan MD Primary Care Provider Reason for Referral * Diagnostic Test (Routine) - Closed Specialty Diagnoses / Procedures Referred By Gonzalez t Referred To Contact Radiology Diagnoses Renal cancer, left Procedures CT Abdomen wwo Contrast Avila Medina MD [facility] [place] [address] [facility] [place] [address] Referral ID Status Reason Start Date Expiration Date V isits Requested Visits Authorized [id number] Closed Specialty Service Requested 12/30/2019 06/27/2020 1 1 Reason for Visit * Diagnostic Test (Routine) - Closed Specialty Diagnoses / Procedures Referred By Gonzalez kumari Referred To Contact Radiology Diagnoses Renal cancer, left Procedures CT Abdomen wwo Contrast Avila Medina MD [facility] [place] [address] [facility] [place] [address] Referral ID Status Reason Start Date Expiration Date V isits Requested Visits Authorized [id number] Closed Specialty Service Requested 12/30/2019 06/27/2020 1 1 Encounter Details Date Type Department Care Team (Latest Contact Info) Description 01/13/2020 10:45 AM EDT - 01/13/2020 11:59 PM EDT Hospital Encounter CT Scan at [facility] [place] [address] Avila Medina MD [facility] [place] [address] Renal cancer, left Discharge Disposition: Home Social [...] 08/05/2019 06/14/2021 fluticasone propionate (FLONASE) 50 mcg/actuation [place], Suspension 1 spray by Each Nare route [...] 1:00 PM EST Hospital Encounter [place] [address] Roland Gooden MD [facility] DR [place] [address] 08/29/2024 1:00 PM EST - 08/29/2024 2:00 PM EST [place] [phone] Roland Gooden MD [facility] [place] [address] EGD, UPPER GI ENDOSCOPY (WRVU 2.09) 10/02/2024 1:00 PM EDT Office Visit Ophthalmology at [place] [phone] Juanpablo Hernandez MD [facility] [place] [address] 10/21/2024 9:30 AM EDT Office Visit Internal Medicine at [place] [address] [place] [address] Daryn Garrett MD [facility] DR LILI WALKER - [place] [address] 01/30/2025 1:30 PM EDT Laboratory Appointment Lab at [facility] Hematology Oncology [address] [place] [phone] 01/30/2025 3:[address] Scan at [place] [phone] Arturo Cordero MD [facility] HEMATOLOGY [place] [address] 01/30/2025 4:15 PM EDT Office Visit Hematology [place] [phone] Arturo Cordero MD [facility] HEMATOLOGY [place] [address] Scheduled Procedures Name Priority Associated Diagnoses Date/Ti hi EGD, UPPER GI ENDOSCOPY (WRVU 2.09) Irritable [...] encounter Visit Diagnoses Diagnosis Renal cancer, left Irritable bowel syndrome with constipation [...] mLs documented in this encounter Care Teams Coke Burner Relationship Specialty Start Date End Date Luis E Narayan MD [facility] DR LILI WALKER-[place] [address] PCP - General Family Medicine 03/26/19 01/19/22 documented as of this encounter
--- OUTSIDE RECORDS SUMMARY | 2024-08-20 16:02 | XMS_ITS | Encounter Summary ---
Author Organization Formerly [facility] Address [facility] [place] [address] Care Team Providers Care Cloud Systems Architect Name Role Phone Luis E Narayan MD Primary Care Provider Encounter Details Date Type Department Care Team (Latest Contact Info) Description 01/13/2020 9:45 AM EDT - 01/13/2020 10:44 AM EDT Hospital Encounter XRay at [address] [place] [address] Avila Medina MD [facility] [place] [address] Renal cancer, left Discharge Disposition: Home Social [...] 08/05/2019 06/14/2021 fluticasone propionate (FLONASE) 50 mcg/actuation [place], Suspension 1 spray by Each Nare route [...] 1:00 PM EST Hospital Encounter [place] [address] Roland Gooden MD [facility] [place] [address] 08/29/2024 1:00 PM EST - 08/29/2024 2:00 PM EST Surgery [place] [phone] Roland Gooden MD [facility] [place] [address] EGD, UPPER GI ENDOSCOPY (WRVU 2.09) 10/02/2024 1:00 PM EDT Office [place] [address] Juanpablo Hernandez MD [facility] [place] [address] 10/21/2024 9:30 AM EDT Office Visit Internal Medicine at [address] [phone] Daryn Garrett MD [facility] DR LILI WALKER - [place] [address] 01/30/2025 1:30 PM EDT Laboratory Appointment Lab at [facility] Hematology Oncology [address] [place] [phone] 01/30/2025 3:[address] [place] [address] Arturo Cordero MD [facility] DR HEMATOLOGY [place] [address] 01/30/2025 4:15 PM EDT Office Visit Hematology and Oncology at [facility] [place] [address] Arturo Cordero MD [facility] DR HEMATOLOGY [place] [address] Scheduled Procedures Name Priority Associated Diagnoses Date/Ti [...] syndrome documented in this encounter Care Teams Cloud Systems Architect Relationship Specialty Start Date End Date Luis E Narayan MD [facility] DR L[place] [address] PCP - General Family Medicine 03/26/19 01/19/22 documented as of this encounter
--- OUTSIDE RECORDS SUMMARY | 2024-08-20 16:02 | XMS_ITS | Encounter Summary ---
Author Organization [facility] [place] [address] Care Team Providers Care Care Provider Name Role Phone Luis E Narayan MD Primary Care Provider Reason for Visit * Reason Onset Date Comments New Medication Request 02/21/2020 Encounter Details Date Type Department Care Team (Late st Contact Info) Description 02/21/2020 Telephone Family Medicine at [facility] [address] [place] [address] Medhat Phillips New Medication Request Social History [...] I reminded Alize to touch base w/ [facility] about seeking medication management there; if she [...] send my- message: n Offered Appointment: n MA/Nurse/Accounts Receivable Analyst contacted via: Message: y Call: n Pager: n documented in this encounter Plan of Treatment Upcoming Encounters Date Type Department Care Team (Latest Contact Info) Description 08/29/2024 1:00 PM EST Hospital Encounter [place] [phone] Roland Gooden MD [facility] [place] [address] 08/29/2024 1:00 PM EST - 08/29/2024 2:00 PM EST Surgery [place] [phone] Roland Gooden MD [facility] [place] [address] EGD, UPPER GI ENDOSCOPY (WRVU 2.09) 10/02/2024 1:00 PM EDT Office [place] [phone] Juanpablo Hernandez MD [facility] [place] [address] 10/21/2024 9:30 AM EDT Office Visit Internal Medicine at [facility] [address] [place] [phone] Daryn Garrett MD [facility] DR LIL[place] [address] 01/30/2025 1:30 PM EDT Laboratory Appointment Lab at [facility] Hematology Oncology [address] [place] [phone] 01/30/2025 3:[address] [place] [phone] Arturo Cordero MD [facility] [place] [address] 01/30/2025 4:15 PM EDT Office Visit Hematology [place] [phone] Arturo Cordero MD [facility] [place] [address] Scheduled Procedures Name Priority Associated Diagnoses Date/Ti me EGD, UPPER GI ENDOSCOPY (WRVU 2.09) Irritable bowel syndrome with constipation 08/29/2024 1:00 PM EST COLONOSCOPY, DIAGNOSTIC (WRVU 3.26) Irritable bowel syndrome with constipation 08/29/2024 1:00 PM EST documented as of this encounter Visit Diagnoses Not on filedocumented in this encounter Care Teams Care Provider Relationship Specialty Start Date End Date Luis E Narayan MD [facility] DR LILI [place] [address] PCP - General Family Medicine 03/26/19 01/19/22 documented as of this encounter
--- OUTSIDE RECORDS SUMMARY | 2024-08-20 16:02 | XMS_ITS | Encounter Summary ---
Author Organization [facility] Address [facility] Siri [facility] [place] [address] Care Team Providers Care Merchandise Coordinator Name Role Phone Luis E Narayan MD Primary Care Provider [phone] Encounter Details Date Type Department Care Team (Late st Contact Info) Description 08/28/2019 Telephone [address] Medicine [address] [facility] [address] [place] [phone] Denisse López, RN Social History Tobacco Use [...] 1:00 PM EST Hospital Encounter [place] [phone] Roland Gooden MD [facility] [address] [address] 08/29/2024 1:00 PM EST - 08/29/2024 2:00 PM EST Surgery [place] [phone] Roland Gooden MD [facility] [place] [address] EGD, UPPER GI ENDOSCOPY (WRVU 2.09) 10/02/2024 1:00 PM EDT Office Visit Ophthalmology at [place] [phone] Juanpablo Hernandez MD [facility] [place] [address] 10/21/2024 9:30 AM EDT Office Visit Internal Medicine at [address] [phone] Daryn Garrett MD [facility] DR LILI [place] [address] 01/30/2025 1:30 PM EDT Laboratory Appointment Lab at [facility] Hematology Oncology [address] [place], [place] [phone] 01/30/2025 3:[address] Scan at [place] [phone] Arturo Cordero MD [facility] [place] [address] 01/30/2025 4:15 PM EDT Office Visit Hematology and Oncology at [place] [phone] Arturo Cordero MD [facility] HEMATOLOGY [place] [address] Scheduled Procedures Name Priority Associated Diagnoses Date/Ti ok EGD, UPPER GI ENDOSCOPY (WRVU 2.09) Irritable bowel syndrome with constipation 08/29/2024 1:00 PM EST COLONOSCOPY, DIAGNOSTIC (WRVU 3.26) Irritable bowel syndrome with constipation 08/29/2024 1:00 PM EST documented as of this encounter Visit Diagnoses Not on filedocumented in this encounter Care Teams Merchandise Coordinator Relationship Specialty Start Date End Date Luis E Narayan MD [facility] DR LILI WALKER-FAM[place] [phone] PCP - General Family Medicine 03/26/19 01/19/22 documented as of this encounter
--- OUTSIDE RECORDS SUMMARY | 2024-08-20 16:02 | XMS_ITS | Encounter Summary ---
Author Organization Counts Include [facility] [address] Care Team Providers Care Skid Machine Operator Name Role Phone Luis E Narayan MD Primary Care Provider [phone] Reason for Visit * Reason Onset Date Comments Appointment 12/03/2019 Encounter Details Date Type Department Care Team (Late st Contact Info) Description 12/03/2019 Telephone Family Medicine at [facility] [address] [place] [phone] Idalmis Bang Appointment Social History Tobacco Use [...] (Latest Contact Info) Description 08/29/2024 1:00 PM [facility] Hospital En[place] [address] Roland Gooden MD [facility] [place] [address] 08/29/2024 1:00 PM EST - 08/29/2024 2:00 PM EST Surgery Gastroenterology at [place] [phone] Roland Gooden MD [facility] [place] [address] EGD, UPPER GI ENDOSCOPY (WRVU 2.09) 10/02/2024 1:00 PM EDT Office Visit Ophthalmology at [place] [phone] Juanpablo Hernandez MD [facility] [place] [address] 10/21/2024 9:30 AM EDT Office Visit Internal Medicine at [address] [phone] Daryn Garrett MD [facility] [place] [address] 01/30/2025 1:30 PM EDT Laboratory Appointment Lab at [facility] Hematology Oncology [address] [place], [place] [phone] 01/30/2025 3:[address] Scan at [place] [phone] Arturo Cordero MD [facility] [place] [address] 01/30/2025 4:15 PM EDT Office Visit Hematology and Oncology at [place] [phone] Arturo Cordero MD [facility] HEMATOLOGY AND ONCOLOGY [place] [phone] Scheduled Procedures Name Priority Associated Diagnoses Date/Ti me EGD, UPPER GI ENDOSCOPY (WRVU 2.09) Irritable bowel syndrome with constipation 08/29/2024 1:00 PM EST COLONOSCOPY, DIAGNOSTIC (WRVU 3.26) Irritable bowel syndrome with constipation 08/29/2024 1:00 PM EST documented as of this encounter Visit Diagnoses Not on filedocumented in this encounter Care Teams Skid Machine Operator Relationship Specialty Start Date End Date Luis E Narayan MD [facility] [place] [address] PCP - General Family Medicine 03/26/19 01/19/22 documented as of this encounter
--- OUTSIDE RECORDS SUMMARY | 2024-08-20 16:02 | XMS_ITS | Encounter Summary ---
Author Organization [place] [address] Care Team Providers Care Apparel Sales Leader Name Role Phone Luis E Narayan MD Primary Care Provider [phone] Encounter Details Date Type Department Care Team (Late st Contact Info) Description 07/26/2019 E-Consult Obstetrics [place] [address] Ally Gruber MD [facility] DR OBSTETRICS [place] [address] Hx of dysplasia of cervix, low grade [...] 1:00 PM EST Hospital En[place] [phone] Roland Gooden MD [facility] [place] [address] 08/29/2024 1:00 PM EST - 08/29/2024 2:00 PM EST [place] [phone] Roland Gooden MD [facility] [place] [address] EGD, UPPER GI ENDOSCOPY (WRVU 2.09) 10/02/2024 1:00 PM EDT Office [place] [phone] Juanpablo Hernandez MD [facility] [place] [address] 10/21/2024 9:30 AM EDT Office Visit Internal Medicine at [address] [phone] Daryn Garrett MD [facility] [place] [address] 01/30/2025 1:30 PM EDT Laboratory Appointment Lab at [facility] Hematology Oncology [address] [place] [phone] 01/30/2025 3:[address] [place] [phone] Arturo Cordero MD [facility] HEMATOLOGY [place] [address] 01/30/2025 4:15 PM EDT Office Visit H[place]ology [place] [phone] Arturo Cordero MD [facility] DR HEMATOLOGY [place] [address] Scheduled Procedures Name Priority Associated Diagnoses Date/Ti [...] syndrome documented in this encounter Care Teams Apparel Sales Leader Relationship Specialty Start Date End Date Luis E Narayan MD [facility] [address] [place] [address] PCP - General Family Medicine 03/26/19 01/19/22 documented as of this encounter
--- OUTSIDE RECORDS SUMMARY | 2024-08-20 16:02 | XMS_ITS | Encounter Summary ---
Author Organization [facility] [place] [address] Care Team Providers Care Core Stripper Name Role Phone Luis E Narayan MD Primary Care Provider Reason for Referral * Consultation (Routine) - Closed Specialty Diagnoses / Procedures Referred By Gonzalez kumari Referred To Contact Primary Care Diagnoses Bipolar affective disorder in remission Recurrent major depressive disorder, in remission Luis E Narayan MD [facility] [place] [address] [facility] Medicine [address] [place] [address] Referral ID Status Reason Start Date Expiration Date V isits Requested Visits Authorized [id number] Closed Specialty Service Requested 01/31/2020 01/30/2021 1 1 Reason for Visit * Reason Comments Follow-up here for a follow up re. blood tests Encounter Details Date Type Department Care Team (Late Contact Info) Description 01/31/2020 3:00 PM EDT Office Visit Family Medicine at [facility] [address] [place] [address] Luis E Narayan MD [facility] [place] [address] Bipolar affective disorder in remission; [...] causing significant difficulty with ADLs. 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 Still has neuropsych/cognitive testing Mood [...] quant; Future; Expected date: 01/31/2020 - DEANNA ([facility]); Future; Expected date: 01/31/2020 - CRP, acute inflammation; Future; Expected date: 01/31/2020 Diabetes - controlled, cont metformin 1000mg bid documented in this encounter Plan of Treatment Upcoming Encounters Date Type Department Care Team (Latest Contact Info) Description 08/29/2024 1:00 PM EST Hospital Encounter [place] [address] Roland Gooden MD [facility] [place] [address] 08/29/2024 1:00 PM EST - 08/29/2024 2:00 PM EST Surgery Gastroenterology at [place] [phone] Roland Gooden MD [facility] [place] [address] EGD, UPPER GI ENDOSCOPY (WRVU 2.09) 10/02/2024 1:00 PM EDT Office Visit Ophthalmology at [place] [phone] Juanpablo Hernandez MD [facility] [place] [address] 10/21/2024 9:30 AM EDT Office Visit Internal Medicine at [address] [phone] Daryn Garrett MD [facility] DR LIL[place] [address] 01/30/2025 1:30 PM EDT Laboratory Appointment Lab at [facility] Hematology Oncology [address] [place], [place] [phone] 01/30/2025 3:[address] [place] [address] Arturo Cordero MD [facility] [place] [address] 01/30/2025 4:15 PM EDT Office Visit Hematology [place] [address] Arturo Cordero MD [facility] [place] [address] Scheduled Procedures Name Priority Associated Diagnoses Date/Ti me EGD, UPPER GI ENDOSCOPY (WRVU 2.09) Irritable bowel syndrome with constipation 08/29/2024 1:00 PM EST COLONOSCOPY, DIAGNOSTIC (WRVU 3.26) Irritable bowel syndrome with constipation 08/29/2024 1:00 PM EST Scheduled Referrals Name Type Priority Associated Diagnoses Order Schedule [facility] (Primary Care Only) Outpatient Referral Routine [...] PM EDT) C-Reactive Protein 6.0(H) <=4.9 mg/L [facility] Blood specimen (specimen) 01/31/2020 4:07 PM EDT 01/31/2020 7:06 PM EDT Narrative Resulting Agency Comment Spec In Lab Luis E Narayan MD CHEMISTRY ORDERABLE S [facility] [place] [address] * DEANNA ([facility]) (01/31/2020 4:07 PM EDT) DEANNA Neg Neg [facility] Comment:Anti-nuclear antibod ies were tested using an indirect immunofluorescent assay. Blood specimen (specimen) 01/31/2020 4:07 PM EDT 02/03/2020 7:29 AM EDT Narrative Resulting Agency Comment Spec In Lab Luis E Narayan MD LAB SEND OUT ORDERA BLES Performing Organization Address City/[facility]/ZIP Co de Phone Number [facility] [place] [address] * Rheumatoid factor, quant (01/31/2020 4:07 PM EDT) Rheumatoid Factor <10 <=14 IU/mL [facility] Blood specimen (specimen) 01/31/2020 4:07 PM EDT 01/31/2020 7:06 PM EDT Narrative Resulting Agency Comment Spec In Lab Luis E Narayan MD CHEMISTRY ORDERABLE S Performing Organization Address [facility] [place] [facility] Co de Phone Number [facility] [place] [address] documented in this encounter Visit Diagnoses Diagnosis Bipolar affective disorder in remission Recurrent major depressive disorder, in remission Arthralgia, unspecified joint Irritable bowel syndrome with constipation Irritable bowel syndrome documented in this encounter Care Teams Core Stripper Relationship Specialty Start Date End Date Luis E Narayan MD [facility] [address] [place] [address] PCP - General Family Medicine 03/26/19 01/19/22 documented as of this encounter
--- OUTSIDE RECORDS SUMMARY | 2024-08-20 16:02 | XMS_ITS | Encounter Summary ---
Author Organization [facility] [place] [address] Care Team Providers Care Guest Relations Receptionist Name Role Phone Luis E Narayan MD Primary Care Provider Encounter Details Date Type Department Care Team (Late st Contact Info) Description 02/19/2020 Telephone Family Medicine at [facility] [address] [place] [phone] Sofia Lorenzo Social History Tobacco Use Types [...] EDT Sent a quick fax to [facility] [phone] requesting records * Telephone Encounter - Medhat Garcia - 02/21/2020 1:41 PM EDT Pt states she [facility] to go [facility] * Telephone Encounter - Sofia Lorenzo [...] can upload them to her chart through [facility] or if she knows the name of the provider so that records can be requested? Thanks -Rachel documented in this encounter Plan of Treatment Upcoming Encounters Date Type Department Care Team (Latest Contact Info) Description 08/29/2024 1:00 PM EST Hospital En[place] [address] Roland Gooden MD [facility] [place] [address] 08/29/2024 1:00 PM EST - 08/29/2024 2:00 PM EST [place] [address] Roland Gooden MD [facility] [place] [address] EGD, UPPER GI ENDOSCOPY (WRVU 2.09) 10/02/2024 1:00 PM EDT Office [place] [phone] Juanpablo Hernandez MD [facility] [address] 10/21/2024 9:30 AM EDT Office Visit Internal Medicine at [address] [phone] Daryn Garrett MD [facility] DR LILI [place] [address] 01/30/2025 1:30 PM EDT Laboratory Appointment Lab at [facility] [place] Oncology [address] [place] [phone] 01/30/2025 3:[address] [place] [phone] Arturo Cordero MD [facility] DR HEMATOLOGY [place] [address] 01/30/2025 4:15 PM EDT Office Visit Hematology [place] [phone] Arturo Cordero MD [facility] DR HEMATOLOGY [place] [address] Scheduled Procedures Name Priority Associated Diagnoses Date/Ti me EGD, UPPER GI ENDOSCOPY (WRVU 2.09) Irritable bowel syndrome with constipation 08/29/2024 1:00 PM EST COLONOSCOPY, DIAGNOSTIC (WRVU 3.26) Irritable bowel syndrome with constipation 08/29/2024 1:00 PM EST documented as of this encounter Visit Diagnoses Not on filedocumented in this encounter Care Teams Guest Relations Receptionist Relationship Specialty Start Date End Date Luis E Narayan MD [facility] DR LILI WALK[place] [address] PCP - General Family Medicine 03/26/19 01/19/22 documented as of this encounter
--- OUTSIDE RECORDS SUMMARY | 2024-08-20 16:02 | XMS_ITS | Encounter Summary ---
Author Organization [facility] [place] [address] Care Team Providers Care Director Pharmaceutical Name Role Phone Luis E Narayan MD Primary Care Provider +[phone]- [phone] Encounter Details Date Type Department Care Team (Latest Contact Info) Description 01/13/2020 10:00 AM EDT Laboratory Appointment Lab [address] [place] [phone] Type 2 diabetes mellitus without long-term current [...] 1:00 PM EST Hospital Encounter [place] [phone] Roland Gooden MD [facility] [place] [address] 08/29/2024 1:00 PM EST - 08/29/2024 2:00 PM EST [place] [phone] Roland Gooden MD [facility] [place] [address] EGD, UPPER GI ENDOSCOPY (WRVU 2.09) 10/02/2024 1:00 PM EDT Office Visit Ophthalmology at [place] [phone] Juanpablo Hernandez MD [facility] [place] [address] 10/21/2024 9:30 AM EDT Office Visit Internal Medicine at [address] [phone] Daryn Garrett MD [facility] [place] [address] 01/30/2025 1:30 PM EDT Laboratory Appointment Lab at [facility] [place] [address] [place] [phone] 01/30/2025 3:[address] [place] [phone] Arturo Cordero MD [facility] H[place] [address] 01/30/2025 4:15 PM EDT Office Visit Hematology [place] [phone] Arturo Cordero MD [facility] [place] [address] Scheduled Procedures Name Priority Associated Diagnoses Date/Ti [...] (ABNORMAL) Hemoglobin A1c (01/13/2020 10:13 AM EDT) [facility] Hemoglobin A1c 6.9(H) 4.3 - 5.6 % [facility] [...] 36: Suppl. 1, S67-13 Estimated Average Glucose 151 mg/dL [facility] Comment: eAG equivalents for HbA1c [...] into estimated average glucose values. ??Diabetes Care 2008:31(8):5771-9443. Blood specimen (specimen) 01/13/2020 10:13 AM EDT 01/13/2020 10:22 AM EDT Narrative Resulting Agency Comment Spec In Lab Luis E Narayan MD CHEMISTRY ORDERABLE S [facility] [place] [address] * Comprehensive metabolic panel (non-fasting) (01/13/2020 10:13 AM EDT) Glucose 156 65 - 199 mg/dL [facility] Comment:Diabetes: >=200 mg/d L plus symptoms Blood Urea Nitrogen 17 8 - 18 mg/dL [facility] Creatinine 0.86 0.70 - 1.20 mg/dL [facility] Sodium 141 135 - 145 mmol/L [facility] Potassium 4.3 3.5 - 5.0 mmol/L [facility] Comment: Please note: ??Patients with WBC >100,000 may have falsely elevated Potassium levels. ??For accurate Potassium quantification in these patients send serum separator tube (gold top) for subsequent determinations. ??Contact the Clinical Chemistry Laboratory if there are any questions. Chloride 105 98 - 107 mmol/L [facility] Carbon Dioxide 24 22 - 31 mmol/L [facility] Anion Gap 12 5 - 15 mmol/L [facility] Calcium 9.4 8.5 - 10.5 mg/dL [facility] Protein, Total 6.7 6.1 - 8.0 gm/dL [facility] Albumin 4.2 3.2 - 5.2 gm/dL [facility] Aspartate Aminotransferase 18 0 - 30 unit/L [facility] Alanine Aminotransferase 25 0 - 30 unit/L [facility] Alkaline Phosphatase 88 35 - 105 unit/L [facility] Bilirubin, Total 0.3 0.2 - 1.3 mg/dL [facility] Est Glomerular Filtration Rate 73 >=60 mL/min/1. 73 m?? [facility] Comment: The eGFR was calculated using the CKD-EPI equation. As with all creatinine based estimates of kidney function, eGFR values calculated with the CKD-EPI equation are not accurate in patients with acute kidney failure, extremes of body mass or the acutely ill. http://Factual/[facility] eGFR 85 >=60 mL/min/1. 73 m?? [facility] Comment: The eGFR was calculated using the CKD-EPI equation. As with all creatinine based estimates of kidney function, eGFR values calculated with the CKD-EPI equation are not accurate in patients with acute kidney failure, extremes of body mass or the acutely ill. http://Factual/[facility] Blood specimen (specimen) 01/13/2020 10:13 AM EDT 01/13/2020 10:22 AM EDT Narrative Resulting Agency Comment Spec In Lab Luis E Narayan MD CHEMISTRY ORDERABLE S [facility] [place] [address] documented in this encounter Visit Diagnoses Diagnosis Type 2 diabetes mellitus without long-term current use of insulin Renal cancer, left Irritable bowel syndrome with constipation Irritable bowel syndrome documented in this encounter Care Teams Director Pharmaceutical Relationship Specialty Start Date End Date Luis E Narayan MD [facility] [address] [place] [address] PCP - General Family Medicine 03/26/19 01/19/22 documented as of this encounter
--- OUTSIDE RECORDS SUMMARY | 2024-08-20 16:02 | XMS_ITS | Encounter Summary ---
Author Organization [facility] [place] [address] Care Team Providers Care Maintenance Supervisor 2Nd Shift Name Role Phone Luis E Narayan MD Primary Care Provider Reason for Visit * Reason Onset Date Comments Triage 01/13/2020 Encounter Details Date Type Department Care Team (Late st Contact Info) Description 01/13/2020 Telephone Family Medicine at [facility] [address] [place] [address] Jeff Miller Triage Social History Tobacco Use [...] requesting return call to clinic. Will send [facility] message advising thesame. * Telephone Encounter - Holly Boucher RN - 01/13/2020 3:05 PM EDT Attempted to return call to patient. No answer; call went to unidentified VM. Left generic message requesting return call to clinic at [phone]. * Telephone Encounter - Milo Griffin MD - 01/13/2020 2:57 PM EDT How urgent is pt feeling on rx? Could wait until Sylvain visit vs I can refer to [facility] for possibly prompter eval given bipolar history Milo Griffin MD [facility] * Telephone Encounter - Alejandra Posadas [...] but she knows she can't do that fpc Pertinent History: FERCHO 08/05. Next 01/30. Hx [...] leave a message: yes Ok to send [facility] message: no Offered Appointment: yes, Patient requested next available with pcp. MA/Nurse/Psychologist [employer] contacted via: Message: yes Call: no Pager: no documented in this encounter Plan of Treatment Upcoming Encounters Date Type Department Care Team (Latest Contact Info) Description 08/29/2024 1:00 PM EST Hospital Encounter [place] [address] Roland Gooden MD [facility] [place] [place] [address] 08/29/2024 1:00 PM EST - 08/29/2024 2:00 PM EST Surgery [place] [address] Roland Gooden MD [facility] [place] [place] [address] EGD, UPPER GI ENDOSCOPY (WRVU 2.09) 10/02/2024 1:00 PM EDT Office Visit Ophthalmology at [place] [phone] Juanpablo Hernandez MD [facility] [place] [address] 10/21/2024 9:30 AM EDT Office Visit Internal Medicine at [address] [place] [address] Daryn Garrett MD [facility] DR LILI [place] [address] 01/30/2025 1:30 PM EDT Laboratory Appointment Lab at [facility] Hematology Oncology [address] [place], [place] [phone] 01/30/2025 3:[address] Scan at [place] [phone] Arturo Cordero MD [facility] [place] [address] 01/30/2025 4:15 PM EDT Office Visit Hematology and Oncology at [place] [phone] Arturo Cordero MD [facility] [place] [address] Scheduled Procedures Name Priority Associated Diagnoses Date/Ti sc EGD, UPPER GI ENDOSCOPY (WRVU 2.09) Irritable bowel syndrome with constipation 08/29/2024 1:00 PM EST COLONOSCOPY, DIAGNOSTIC (WRVU 3.26) Irritable bowel syndrome with constipation 08/29/2024 1:00 PM EST documented as of this encounter Visit Diagnoses Not on filedocumented in this encounter Care Teams Maintenance Supervisor 2Nd Shift Relationship Specialty Start Date End Date Luis E Narayan MD [facility] DR LILI WALKER-F[place] [phone] PCP - General Family Medicine 03/26/19 01/19/22 documented as of this encounter
--- OUTSIDE RECORDS SUMMARY | 2024-08-20 16:02 | XMS_ITS | Encounter Summary ---
Author Organization [facility] [place] [address] Care Team Providers Care Middle [employer] Spanish Teacher Name Role Phone Luis E Narayan MD Primary Care Provider Encounter Details Date Type Department Care Team (Late st Contact Info) Description 10/23/2019 [place] [address] Amy Aguiar MD [facility] [place] [address] Social History Tobacco Use Types Packs/Day Years [...] encounter Miscellaneous Notes * Telephone Encounter - Elsy Palomoekah Chelsea - 10/23/2019 11:[address] [...] 1:00 PM EST Hospital Encounter [place] [address] Roland Gooden MD [facility] [place] [address] 08/29/2024 1:00 PM EST - 08/29/2024 2:00 PM EST Surgery [place] [phone] Roland Gooden MD [facility] [place] [address] EGD, UPPER GI ENDOSCOPY (WRVU 2.09) 10/02/2024 1:00 PM EDT Office [place] [phone] Juanpablo Hernandez MD [facility] [place] [address] 10/21/2024 9:30 AM EDT Office Visit Internal Medicine at [address] [phone] Daryn Garrett MD [facility] DR LILI [place] [address] 01/30/2025 1:30 PM EDT Laboratory Appointment Lab at [facility] Hematology Oncology [address] [place] [phone] 01/30/2025 3:[address] [place] [address] Arturo Cordero MD [facility] [place] [address] 01/30/2025 4:15 PM EDT Office Visit Hematology [place] [address] Arturo Cordero MD [facility] [place]OLOGY [place] [address] Scheduled Procedures Name Priority Associated Diagnoses Date/Ti me EGD, UPPER GI ENDOSCOPY (WRVU 2.09) Irritable bowel syndrome with constipation 08/29/2024 1:00 PM EST COLONOSCOPY, DIAGNOSTIC (WRVU 3.26) Irritable bowel syndrome with constipation 08/29/2024 1:00 PM EST documented as of this encounter Visit Diagnoses Not on filedocumented in this encounter Care Teams [employer] Spanish Teacher Relationship Specialty Start Date End Date Luis E Narayan MD [facility] [address] [place] [address] PCP - General Family Medicine 03/26/19 01/19/22 documented as of this encounter
--- OUTSIDE RECORDS SUMMARY | 2024-08-20 16:02 | XMS_ITS | Encounter Summary ---
Author Organization [facility] Address [facility] [place] [address] Care Team Providers Care Demand Equipment Repairer Name Role Phone Luis E Narayan MD Primary Care Provider Encounter Details Date Type Department Care Team (Late st Contact Info) Description 07/18/2019 [place] [address] Avila Medina MD [facility] [address] Social History Tobacco Use Types Packs/Day Years [...] 1:00 PM EST Hospital Encounter [place] [phone] Roland Gooden MD [facility] [place] [address] 08/29/2024 1:00 PM EST - 08/29/2024 2:00 PM EST Surgery Gastroenterology at [place] [phone] Roland Gooden MD [facility] [place] [address] EGD, UPPER GI ENDOSCOPY (WRVU 2.09) 10/02/2024 1:00 PM EDT Office Visit Ophthalmology at [place] [phone] Juanpablo Hernandez MD [facility] [address] 10/21/2024 9:30 AM EDT Office Visit Internal Medicine at [address] [phone] Daryn Garrett MD [facility] DR LILI [place] [address] 01/30/2025 1:30 PM EDT Laboratory Appointment Lab at [facility] [place] Oncology [address] [place], [place] [phone] 01/30/2025 3:[address] Scan at [place] [phone] Arturo Cordero MD [facility] [place] [address] 01/30/2025 4:15 PM EDT Office Visit Hematology and Oncology at [place] [phone] Arturo Cordero MD [facility] [place] [address] Scheduled Procedures Name Priority Associated Diagnoses Date/Ti me EGD, UPPER GI ENDOSCOPY (WRVU 2.09) Irritable bowel syndrome with constipation 08/29/2024 1:00 PM EST COLONOSCOPY, DIAGNOSTIC (WRVU 3.26) Irritable bowel syndrome with constipation 08/29/2024 1:00 PM EST documented as of this encounter Visit Diagnoses Not on filedocumented in this encounter Care Teams Demand Equipment Repairer Relationship Specialty Start Date End Date Luis E Narayan MD [facility] [address] [place] [address] PCP - General Family Medicine 03/26/19 01/19/22 documented as of this encounter
--- OUTSIDE RECORDS SUMMARY | 2024-08-20 16:02 | XMS_ITS | Encounter Summary ---
Author Organization [facility] Address [facility] [place] [address] Care Team Providers Care Umbrella Tipper Name Role Phone Luis E Narayan MD Primary Care Provider +[phone]- [phone] Encounter Details Date Type Department Care Team (Late st Contact Info) Description 11/06/2019 11:30 AM EDT TH Visit (TeleHealth) Sleep Center at [facility] [address] [place] [address] Jhonny Morataya MD [facility] [place] [address] TITO (obstructive sleep apnea); Chronic insomnia; RLS [...] drive. If you get sleepy while driving snout puller and nap. You may resume driving once you feel alert. 11) Read No More Sleepless Nights by Mack Heaton PhD. 12) Dr Morataya will send a prescription to [facility] for a pressure increase. If you have problems with the pressure increase please let my office know at [phone] 13) Not getting enough sleep may lead [...] clinic office visit. yes Patient Location: At [facility] patient is located in at time of this visit: [place] Chief Complaint: Daytime tiredness HPI: Ms. [...] no change in treatment ?? Re-evaluation in [facility] 05/09/19 On CPAP still and [...] regularly in the past. Questionnaires: Patient-reported scores: [facility] 05/09/2019 [place] [facility] 10 (High Risk) Insomnia Severity Index - [facility] 05/07/2019 05/09/2019 [place] [facility] 7 10 (High Risk) Insomnia Severity Index 22 (Severe insomnia) - Daytime Symptoms: Naps: 2 x per week for up to 3 hrs Involuntary Dozing: no Driving: The patient does not report difficulty with sleepiness and driving anymore. [facility] [place] have sleepiness driving. No problems [...] 0 ??? fluticasone propionate (FLONASE) 50 mcg/actuation [place], Suspension 1 spray by Each Nare route [...] 1:00 PM EST Hospital Encounter [place] [phone] Roland Gooden MD [facility] [place] [address] 08/29/2024 1:00 PM EST - 08/29/2024 2:00 PM EST [place] [phone] Roland Gooden MD [facility] [place] [address] EGD, UPPER GI ENDOSCOPY (WRVU 2.09) 10/02/2024 1:00 PM EDT Office [place] [phone] Juanpablo Hernandez MD [facility] [place] [address] 10/21/2024 9:30 AM EDT Office Visit Internal Medicine at [address] [phone] Daryn Garrett MD [facility] DR LILI [place] [address] 01/30/2025 1:30 PM EDT Laboratory Appointment Lab at [facility] Hematology Oncology [address] [place] [phone] 01/30/2025 3:[address] [place] [phone] Arturo Cordero MD [facility] [place] [address] 01/30/2025 4:15 PM EDT Office Visit Hematology [place] [address] Arturo Cordero MD [facility] DR [place] [address] Scheduled Procedures Name Priority Associated Diagnoses Date/Ti [...] (restless legs syndrome) Restless legs syndrome (RLS) Irritable bowel syndrome with constipation Irritable bowel syndrome documented in this encounter Care Teams Umbrella Tipper Relationship Specialty Start Date End Date Luis E Narayan MD [facility] [address] [place] [address] PCP - General Family Medicine 03/26/19 01/19/22 documented as of this encounter
--- OUTSIDE RECORDS SUMMARY | 2024-08-20 16:03 | XMS_ITS | Encounter Summary ---
Author Organization [facility] [place] [address] Care Team Providers Care Flour Inspector Name Role Phone Luis E Narayan MD Primary Care Provider +[phone]- [phone] Reason for Visit * Reason Onset Date Comments New Medication Request 06/13/2019 Encounter Details Date Type Department Care Team (Late st Contact Info) Description 06/13/2019 Telephone Family Medicine at [facility] [address] [place] [address] George Lorezno New Medication Request Social History Tobacco Use [...] Name & Location: [facility] - [address] Ask caller their first and last name and relationship to the patient: patient Best time to call back: any Ok to leave a message: yes Ok to send my- message: no ?? documented in this encounter Plan of Treatment Upcoming Encounters Date Type Department Care Team (Latest Contact Info) Description 08/29/2024 1:00 PM EST Hospital Encounter Gastroenterology at [place] [phone] Roland Gooden MD [facility] [place] [address] 08/29/2024 1:00 PM EST - 08/29/2024 2:00 PM EST Surgery Gastroenterology at [place] [phone] Roland Gooden MD [facility] [place] [address] EGD, UPPER GI ENDOSCOPY (WRVU 2.09) 10/02/2024 1:00 PM EDT Office [place] [phone] Juanpablo Hernandez MD [facility] [place] [address] 10/21/2024 9:30 AM EDT Office Visit Internal Medicine at [address] [phone] Daryn Garrett MD [facility] DR LILI [place]ER [place] [address] 01/30/2025 1:30 PM EDT Laboratory Appointment Lab at [facility] Hematology Oncology [address] [place] [phone] 01/30/2025 3:[address] [place] [address] Arturo Coredro MD [facility] HEMATOLOGY [place] [address] 01/30/2025 4:15 PM EDT Office Visit Hematology [place] [address] Arturo Cordero MD [facility] HEMATOLOGY [place] [address] Scheduled Procedures Name Priority Associated Diagnoses Date/Ti me EGD, UPPER GI ENDOSCOPY (WRVU 2.09) Irritable bowel syndrome with constipation 08/29/2024 1:00 PM EST COLONOSCOPY, DIAGNOSTIC (WRVU 3.26) Irritable bowel syndrome with constipation 08/29/2024 1:00 PM EST documented as of this encounter Visit Diagnoses Not on filedocumented in this encounter Care Teams Flour Inspector Relationship Specialty Start Date End Date Luis E Narayan MD [facility] [address] [place] [address] PCP - General Family Medicine 03/26/19 01/19/22 documented as of this encounter
--- OUTSIDE RECORDS SUMMARY | 2024-08-20 16:03 | XMS_ITS | Encounter Summary ---
[place] [address] Care Team Providers Care Repulping Supervisor Name Role Phone Luis E Narayan MD Primary Care Provider Encounter Details Date Type Department Care Team (Late st Contact Info) Description 06/21/2019 11:40 AM EST Clinical [place] [address] Renal mass Social History Tobacco Use Types [...] 1:00 PM EST Hospital Encounter [place] [phone] Roland Gooden MD [facility] [address] 08/29/2024 1:00 PM EST - 08/29/2024 2:00 PM EST Surgery [place] [phone] Roland Gooden MD [facility] [place] [address] EGD, UPPER GI ENDOSCOPY (WRVU 2.09) 10/02/2024 1:00 PM EDT Office [place] [phone] Juanpablo Hernandez MD [facility] [place] [address] 10/21/2024 9:30 AM EDT Office Visit Internal Medicine at [place] [address] [place] [phone] Daryn Garrett MD [facility] DR LILI [place] [address] 01/30/2025 1:30 PM EDT Laboratory Appointment Lab at [facility] Hematology Oncology [address] [place] [phone] 01/30/2025 3:[address] [place] [address] Arturo Cordero MD [facility] DR HEMATOLOGY AND ONCOLOGY [place], [place] [phone] 01/30/2025 4:15 PM EDT Office Visit Hematology [place] [address] Arturo Cordero MD [facility] [place] [address] Scheduled Procedures Name Priority Associated Diagnoses Date/Ti [...] tract infection, submit a new specimen. (A) [facility] Urine specimen obtained by clean catch procedure (specimen) 06/21/2019 12:06 PM EST 06/21/2019 12:28 PM EST Narrative Resulting Agency Comment Spec In Lab Avila Medina MD MICROBIOLOGY - GENER AL ORDERABLES Performing Organization Address [facility]/ZIP Co de Phone Number [facility] [place] [address] * ABORH Recheck Status (06/21/2019 12:02 PM EST) ABORH Recheck Order Order Placed [facility] ABORH Type Recheck Complete [facility] Blood specimen (specimen) 06/21/2019 12:02 PM EST 06/21/2019 12:09 PM EST Narrative Resulting Agency Comment Spec In Lab Avila Medina MD BLOOD BANK LAB ORDER SHYLA Performing Organization Address [facility]/ZIP Co de Phone Number [facility] [place] [address] * Antibody screen (06/21/2019 12:02 PM EST) Ab Screen Interp Negative [facility] Expires at [id number] on: 07/01/2019 [facility] Blood specimen (specimen) 06/21/2019 12:02 PM EST 06/21/2019 12:09 PM EST Narrative Resulting Agency Comment Spec In Lab Avila Medina MD BLOOD BANK LAB ORDER SHYLA [facility] [place] [place] [address] * ABO/Rh Typing (06/21/2019 12:02 PM EST) ABORH Type O Pos [facility] Blood specimen (specimen) 06/21/2019 12:02 PM EST 06/21/2019 12:09 PM EST Narrative Resulting Agency Comment Spec In Lab Avila Medina MD BLOOD BANK LAB ORDER SHYLA Performing Organization Address [facility] Co de Phone Number [facility] [place] [address] * (ABNORMAL) Differential, Automated (06/21/2019 12:02 PM EST) Pathologist [facility] Neutrophil % 56.8 % [facility] Neutrophil Absolute 4.68 1.70 - 6.10 x10(3)/mc L [facility] Lymph % 30.3 % [facility] Lymphocytes Abs 2.5 0.9 - 3.2 x10(3)/mc L [facility] Monocyte % 5.2 % [facility] Monocyte Abs 0.4 0.3 - 0.9 x10(3)/mc L [facility] Eos % 6.6 % [facility] Eosinophils Abs 0.5(H) 0.0 - 0.4 x10(3)/mc L [facility] Basophil % 0.7 % [facility] Baso Absolute 0.1 0.0 - 0.1 x10(3)/mc L [facility] Immature Gran % 0.40 % [facility] Comment: Immature granulocytes(IG's)percentage and absolute count will include metamyelocytes, myelocytes, and promyelocytes. Blood smears from CBCs yielding IG's will be scanned manually for concordance. If this scan disagrees with the automated IG or if promyelocytes are noted, a manual differential will be performed. Immature Gran Absolute 0.03 0.00 - 0.04 x10(3)/mc L [facility] Blood specimen (specimen) 06/21/2019 12:02 PM EST 06/21/2019 12:12 PM EST Narrative Resulting Agency Comment Spec In Lab Avila Medina MD HEMATOLOGY ORDERABLE S [facility] [place] [address] * (ABNORMAL) Hemogram (06/21/2019 12:02 PM EST) White Blood Cell 8.2 4.0 - 9.5 x10(3)/ L [facility] Red Blood Cell 4.64 4.00 - 5.21 x10(6)/[facility] Hemoglobin 13.2 11.7 - 15.5 gm/dL [facility] Hematocrit 41.2 35.7 - 45.8 % [facility] Mean Cell Volume 88.8 82.6 - 94.4 fL [facility] Mean Cell Hemoglobin 28.4 27.1 - 32.0 pg [facility] Mean Cell Hemoglobin Concentration 32.0 31.7 - 35.0 gm/dL [facility] Platelet 359(H) 145 - 357 x10(3)/ L [facility] RDW Standard Deviation 45.2 37.0 - 46.0 fL [facility] RDW coefficient of variation 14.0 11.5 - 14.1 % [facility] Mean Platelet Volume 9.5 7.6 - 12.9 fL [facility] NRBC% auto 0.0 % [facility] NRBC Absolute 0.000 0.000 - 0.000 x10(3)/mc L [facility] Blood specimen (specimen) 06/21/2019 12:02 PM EST 06/21/2019 12:12 PM EST Narrative Resulting Agency Comment Spec In Lab Avila Medina MD HEMATOLOGY ORDERABLE S [facility] [address] * (ABNORMAL) Comprehensive metabolic panel (non-fasting) (06/21/2019 12:02 PM EST) Glucose 205(H) 65 - 199 mg/dL [facility] Comment:Diabetes: >=200 mg/d L plus symptoms Blood Urea Nitrogen 22(H) 8 - 18 mg/dL [facility] Creatinine 0.90 0.70 - 1.20 mg/dL [facility] Sodium 138 135 - 145 mmol/L [facility] Potassium 4.2 3.5 - 5.0 mmol/L [facility] Comment: Please note: ??Patients with WBC >100,000 may have falsely elevated Potassium levels. ??For accurate Potassium quantification in these patients send serum separator tube (gold top) for subsequent determinations. ??Contact the Clinical Chemistry Laboratory if there are any questions. Chloride 100 98 - 107 mmol/L [facility] Carbon Dioxide 27 22 - 31 mmol/L [facility] Anion Gap 11 5 - 15 mmol/L [facility] Calcium 9.6 8.5 - 10.5 mg/dL [facility] Protein, Total 7.1 6.1 - 8.0 gm/dL [facility] Albumin 4.1 3.2 - 5.2 gm/dL [facility] Aspartate Aminotransferase 34(H) 0 - 30 unit/L [facility] Alanine Aminotransferase 31(H) 0 - 30 unit/L [facility] Alkaline Phosphatase 86 35 - 105 unit/L [facility] Bilirubin, Total 0.3 0.2 - 1.3 mg/dL [facility] Est Glomerular Filtration Rate 70 >=60 mL/min/1. 73 m?? [facility] Comment: The eGFR was calculated using the CKD-EPI equation. As with all creatinine based estimates of kidney function, eGFR values calculated with the CKD-EPI equation are not accurate in patients with acute kidney failure, extremes of body mass or the acutely ill. http://[employer]/DHnkf eGFR 81 >=60 mL/min/1. 73 m?? [facility] Comment: The eGFR was calculated using the CKD-EPI equation. As with all creatinine based estimates of kidney function, eGFR values calculated with the CKD-EPI equation are not accurate in patients with acute kidney failure, extremes of body mass or the acutely ill. http://[employer]/DHMCnkf Blood specimen (specimen) 06/21/2019 12:02 PM EST 06/21/2019 12:12 PM EST Narrative Resulting Agency Comment Spec In Lab Avila Medina MD CHEMISTRY ORDERABLES [facility] [place] [address] documented in this encounter Visit Diagnoses Diagnosis Renal mass Unspecified disorder of kidney and ureter Irritable bowel syndrome with constipation Irritable bowel syndrome documented in this encounter Care Teams Repulping Supervisor Relationship Specialty Start Date End Date Luis E Narayan MD [facility] DR LILI [place] [address] PCP - General Family Medicine 03/26/19 01/19/22 documented as of this encounter
--- OUTSIDE RECORDS SUMMARY | 2024-08-20 16:03 | XMS_ITS | Encounter Summary ---
Author Organization [facility] [place] [address] Care Team Providers Care Coper Hand Name Role Phone Luis E Narayan MD Primary Care Provider [phone] Encounter Details Date Type Department Care Team (Late st Contact Info) Description 07/02/2019 [place] [phone] Camilla Carrera MD [facility] [place] [address] Social History Tobacco Use Types Packs/Day Years [...] 1:00 PM EST Hospital En[place] [phone] Roland Gooden MD [facility] [place] [address] 08/29/2024 1:00 PM EST - 08/29/2024 2:00 PM EST Surgery Gastroenterology at [place] [phone] Roland Gooden MD [facility] [place] [address] EGD, UPPER GI ENDOSCOPY (WRVU 2.09) 10/02/2024 1:00 PM EDT Office [place] [phone] Juanpablo Hernandez MD [facility] [place] [address] 10/21/2024 9:30 AM EDT Office Visit Internal Medicine at [address] [phone] Daryn Garrett MD [facility] DR LILI [place] [address] 01/30/2025 1:30 PM EDT Laboratory Appointment Lab at [facility] Hematology Oncology [address] [place] [phone] 01/30/2025 3:[address] [place] [phone] Arturo Codrero MD [facility] HEMATOLOGY [place] [address] 01/30/2025 4:15 PM EDT Office Visit Hematology [place] [address] Arturo Cordero MD [facility] [place]ATOLOG[place] [address] Scheduled Procedures Name Priority Associated Diagnoses Date/Ti me EGD, UPPER GI ENDOSCOPY (WRVU 2.09) Irritable bowel syndrome with constipation 08/29/2024 1:00 PM EST COLONOSCOPY, DIAGNOSTIC (WRVU 3.26) Irritable bowel syndrome with constipation 08/29/2024 1:00 PM EST documented as of this encounter Visit Diagnoses Not on filedocumented in this encounter Care Teams Coper Hand Relationship Specialty Start Date End Date Luis E Narayan MD [facility] [address] [place] [address] PCP - General Family Medicine 03/26/19 01/19/22 documented as of this encounter
--- OUTSIDE RECORDS SUMMARY | 2024-08-20 16:03 | XMS_ITS | Encounter Summary ---
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 H/O heart artery stent Procedures Echocardiogram Transthoracic([facility]) Luis E Narayan MD [facility] [address] [place] [address] [facility] [place] [address] Referral ID Status Reason Start Date Expiration Date V isits Requested Visits Authorized [id number] Closed Specialty Service Requested 06/25/2019 08/23/2019 1 1 Reason for Visit * Reason Comments Follow-up Encounter Details Date Type Department Care Team (Late st Contact Info) Description 06/21/2019 1:00 PM EST Office Visit Family Medicine at [facility] [address] [place] [address] Luis E Narayan MD [facility] [address] [place] [address] Type 2 diabetes mellitus without long-term current use of insulin; Healthcare maintenance; Peripheral edema; 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; H/O heart artery [...] never scheduled 4) Cardiac - has hx [place], stent x4 - has been having worsening [...] Assessment/Plan 30 minutes of this 45 minute hxge-iw-ntlv visit were spent in discussion on the following topics: Diagnoses and all orders for this visit: Type 2 diabetes mellitus without long-term current use of insulin, uncontrolled last HA1c check butsuspect repeat today will be much better - U Albumin/Cre Ratio - Hemoglobin A1c; Future; Expected date: 06/21/2019 Healthcare maintenance - HIV Screen, 4th Generation ([facility]/CGP/APD); Future; Expected date: 06/21/2019 - Hepatitis C Antibody; Future; Expected date: 06/21/2019 Peripheral edema, CAD, heart artery stent x4 LCX - Echocardiogram Transthoracic([facility]); Future; Expected date: 06/21/2019 Will try to get this prior to surgery 06/28. Bipolar affective disorder in remission - refill lamoTRIgine (LAMICTAL) 25 mg Tablet; Take 3 tablets by mouth daily. Will also have Patient Services Rep check on EEG. Neurology in Jul as scheduled. Follow up with me in 4-6 weeks. documented in this encounter Plan of Treatment Upcoming Encounters Date Type Department Care Team (Latest Contact Info) Description 08/29/2024 1:00 PM EST Hospital Encounter Gastroenterology at [place] [phone] Roland Gooden MD [facility] [place] [address] 08/29/2024 1:00 PM EST - 08/29/2024 2:00 PM EST Surgery [place] [phone] Roland Gooden MD [facility] [place] [address] EGD, UPPER GI ENDOSCOPY (WRVU 2.09) 10/02/2024 1:00 PM EDT Office [place] [phone] Juanpablo Hernandez MD [facility] [place] [address] 10/21/2024 9:30 AM EDT Office Visit Internal Medicine at [address] [phone] Daryn Garrett MD [facility] DR LILI [place] [address] 01/30/2025 1:30 PM EDT Laboratory Appointment Lab at [facility] Hematology Oncology [address] [place] [phone] 01/30/2025 3:[address] [place] [address] Arturo Cordero MD [facility] [place] [address] 01/30/2025 4:15 PM EDT Office Visit Hematology and Oncology at [facility] [place] [address] Arturo Cordero MD [facility] DR [place] [address] Scheduled Procedures Name Priority Associated Diagnoses Date/Ti [...] ?JOSSELINE Tran ?(Age): 1960(58y) Med Rec#: ? [id number] ?Sex: ?F ? Site Loc: ? DH ?Ht / Wt: ??158(cm)/101(kg) Pt. Loc: ?Echo Lab ?BSA: ?2.01 Study Date: ?? 06/27/2019 ?Pt. Type: Outpatient Tape: ? Referring: PIOTR Reading: Jeff Barraza ??([id number]) Van Loader: Sumit Ratliff RDCS Diagnosis: *Edema, unspecified (R60.9) *Atherosclerotic heart disease of alturas coronary artery with unspecified angina pectoris (I25.119) [...] E-wave Vmax ?1 ?m/sec ? MV deceleration hdgi311.5 ?msec ? MV A-wave Vmax ?1 ?m/sec [...] ? Mid-Inferior ?Normal ? Mid-Inferoseptal ?Normal ? [place]-Septal ? Normal ? [place]-Anterior ? Normal ? [place]-Lateral ?Normal ? [place]-Inferior ? Normal ? [place]-Tip ?Normal ? This report has been electronically signed by: Jeff Barraza MD ? 06/27/2019 11:51:50 Images reviewed and interpretation verified [facility] Cardiac Ultrasound Laboratory Procedure Note Jeff Barraza MD - 06/27/2019 Procedure: Transthoracic Echocardiogram Patient: JOSSELINE LOMAX(Age): 1960(58y) Med Rec#: [id number] Sex: F Site Loc: [facility] Ht / Wt: 158(cm)/101(kg) Pt. Loc: Echo Lab BSA: 2.01 Study Date: 06/27/2019 Pt. Type: Outpatient Tape: Referring: PIOTR Reading: Jeff Barraza ([id number]) Van Loader: Sumit Ratliff MONET Diagnosis: *Edema, unspecified (R60.9) *Atherosclerotic heart disease of alturas coronary artery with unspecified angina pectoris (I25.119) [...] MV E-wave Vmax 1 m/sec MV deceleration kcir080.5 msec MV A-wave Vmax 1 m/sec MV [...] Normal Mid-Posterolateral Normal Mid-Inferior Normal Mid-Inferoseptal Normal [place]-Septal Normal [place]-Anterior Normal [place]-Lateral Normal [place]-Inferior Normal [place]-Tip Normal This report has been electronically signed by: Jeff Barraza MD 06/27/2019 11:51:50 Images reviewed and interpretation verified [facility] Ul[facility]ound [facility] Luis E Narayan MD ECHO ORDERABLES * (ABNORMAL) Hemoglobin A1c (06/21/2019 2:09 PM EST) Hemoglobin A1c 7.2(H) 4.3 - 5.6 % [facility] [...] 36: Suppl. 1, S67-44 Estimated Average Glucose 161 mg/dL [facility] Comment: [...] into estimated average glucose values. ??Diabetes Care 2008:31(8):7012-5979. Blood specimen (specimen) 06/21/2019 2:09 PM EST 06/21/2019 5:58 PM EST Narrative Resulting Agency Comment Spec In Lab Luis E Narayan MD CHEMISTRY ORDERABLE S [facility] [place] [address] * Hepatitis C Antibody (06/21/2019 2:09 PM EST) Hepatitis C Antibody Negative Negative [facility] Blood specimen (specimen) 06/21/2019 2:09 PM EST 06/21/2019 6:01 PM EST Narrative Resulting Agency Comment Spec In Lab Luis E Narayan MD CHEMISTRY ORDERABLE S Performing Organization Address [facility] Co de Phone Number [facility] [place] [address] * HIV Screen, 4th Generation ([facility]/CGP/APD) (06/21/2019 [...] MD CHEMISTRY ORDERABLE S Performing Organization Address City/[facility]/ZIP Co de Phone Number [facility] [place] [address] * Urine Hold (06/21/2019 1:30 PM EST) Hold, Urine Sample in lab. [facility] Urine specimen (specimen) Urine / Unknown 06/21/2019 1:30 PM EST 06/21/2019 4:25 PM EST Luis E Narayan MD URINE ORDERABLES Performing Organization Address [facility] Co de Phone Number [facility] [place] [address] * U Albumin/Cre Ratio (06/21/2019 1:30 PM [...] [facility] Creatinine, Urine 82 mg/dL [facility] Urine specimen (specimen) 06/21/2019 1:30 PM EST 06/21/2019 4:27 PM EST Narrative Resulting Agency Comment Spec In Lab Luis E Narayan MD URINE ORDERABLES Performing Organization Address [facility] Co de Phone Number [facility] [place] [address] documented in this encounter Visit Diagnoses Diagnosis Type 2 diabetes mellitus without long-term current use of insulin Healthcare maintenance Routine general medical examination at a health care facility Peripheral edema Edema 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 H/O heart artery stent x4 LCX Postsurgical percutaneous transluminal coronary angioplasty status Bipolar affective disorder in remission Peripheral edema Edema 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
--- OUTSIDE RECORDS SUMMARY | 2024-08-20 16:03 | XMS_ITS | Encounter Summary ---
Author Organization [facility] Address [facility] [place] [address] Care Team Providers Care Drop Count Associate Name Role Phone Luis E Narayan MD Primary Care Provider Encounter Details Date Type Department Care Team (Late st Contact Info) Description 07/02/2019 [place] [address] Avila Medina MD [facility] [place] [address] Social History Tobacco Use Types Packs/Day Years [...] Bustos - 07/02/2019 9:51 AM EST PHONE: [phone] Pt is calling after discharge yesterday. She [...] 1:00 PM EST Hospital Encounter Gastroenterology at [place] [phone] Roland Gooden MD [facility] [place] [address] 08/29/2024 1:00 PM EST - 08/29/2024 2:00 PM EST [place] [address] Rolnad Gooden MD [facility] [place] [address] EGD, UPPER GI ENDOSCOPY (WRVU 2.09) 10/02/2024 1:00 PM EDT Office [place] [address] Juanpablo Hernandez MD [facility] OPHTHALMOLOGY [place], [place] [phone] 10/21/2024 9:30 AM EDT Office Visit Internal Medicine at [address] [phone] Daryn Garrett MD [facility] DR LILI [place] [address] 01/30/2025 1:30 PM EDT Laboratory Appointment Lab at [facility] Hematology Oncology [address] [place] [phone] 01/30/2025 3:[address] [place] [address] Arturo Cordero MD [facility] [place] [address] 01/30/2025 4:15 PM EDT Office Visit Hematology and Oncology at [facility] [place] [address] Arturo Cordero MD [facility] [place] [address] Scheduled Procedures Name Priority Associated Diagnoses Date/Ti me EGD, UPPER GI ENDOSCOPY (WRVU 2.09) Irritable bowel syndrome with constipation 08/29/2024 1:00 PM EST COLONOSCOPY, DIAGNOSTIC (WRVU 3.26) Irritable bowel syndrome with constipation 08/29/2024 1:00 PM EST documented as of this encounter Visit Diagnoses Not on filedocumented in this encounter Care Teams Drop Count Associate Relationship Specialty Start Date End Date Luis E Narayan MD [facility] DR LILI [place] [address] PCP - General Family Medicine 03/26/19 01/19/22 documented as of this encounter
--- OUTSIDE RECORDS SUMMARY | 2024-08-20 16:03 | XMS_ITS | Encounter Summary ---
Author Organization [facility] [place] [address] Care Team Providers Care Security Police Officer Name Role Phone Luis E Narayan MD Primary Care Provider Reason for Visit * Auth/Cert Specialty Diagnoses / Procedures Referred By Gonzalez kumari Referred To Contact Diagnoses Renal Mass Procedures PRO LAP, PARTIAL NEPHRECTOMY LAPAROSCOPY, PARTIAL NEPHRECTOMY, ROBOTIC ASSIST (WRVU 27.41) MODIFIER ROBOT,DAVINCI XI Referral ID Status Reason Start Date Expiration Date Visits Re quested Visits Authorized [id number] 1 1 Encounter Details Date Type Department Care Team (Late st Contact Info) Description 06/28/2019 8:30 AM EST - 06/28/2019 12:58 PM EST Surgery [place] [address] Avila Medina MD [facility] [place] [address] ROBOTIC LAPAROSCOPY, PARTIAL NEPHRECTOMY (WRVU 27.41) Social [...] Hospital Course: Alize Gramajo was admitted to [facility] on 06/28/2019 through the Same Day Surgery [...] previous YANDY site dressing c/d/i : no begrman Skin: warm, dry Neuro: AOx3 Discharge to: [...] that part of your care. Urology Clinic: [phone] PCP: Luis E Narayan MD, . Please follow-up with your PCP in 1-2 weeks or sooner as needed. Scheduled Appointments: The following appointments have been scheduled on your behalf: Future Appointments and Orders Future Appointments and Orders Future Appointments Provider Department Dept Phone 07/09/2019 2:30 PM [facility] Neurodiagnostic at [facility] Arrive at: Manager Photo Area [phone] 07/17/2019 9:20 AM LAB, THREE L Lab [facility] Arrive at: Manager Photo Area 3L [phone] 07/17/2019 10:20 AM Avila Medina MD Urology at [facility] Arrive at: Manager Photo Area 5B [phone] 07/22/2019 1:00 PM Luis E Narayan MD Primary Care at [facility] Arrive at: Manager Photo 2 South [phone] 08/05/2019 1:45 PM Amy Aguiar MD Neurology at [facility] Arrive at: Manager Photo Area 3C [phone] 08/13/2019 7:30 PM SLEEP, PHYSICIAN Sleep Center at [facility] Arrive at: Manager Photo 1 [place] [phone] Future Orders Complete By Expires Basic Metabolic [...] 07/09/2019 2:30 PM C-ELECTRONEURO, DIAGNOSTICS Neurodiagnostic at [facility] Arrive at: Manager Photo Area [phone] 07/17/2019 9:20 AM LAB, THREE L Lab [address] [place] [address] Arrive at: [facility] 07/17/2019 10:20 AM Avila Medina MD Urology at [facility] Arrive at: [facility] Area [phone] 07/22/2019 1:00 PM Luis E Narayan MD Primary Care at [facility] Arrive at: Manager Photo 2 [facility] [phone] 08/05/2019 1:45 PM Amy Aguiar MD Neurology at [facility] Arrive at: [facility] Area [phone] 08/13/2019 7:30 PM SLEEP, PHYSICIAN Sleep Center at [facility] Arrive at: Manager Photo [address] [place] [phone] Future Orders Complete By Expires Basic Metabolic [...] managed by the Urologic Surgery Team at [facility]. If you have any questions or concerns, please feel free to contact us. Provider Contact Information: Urology Clinic: [phone] [facility] (after business hours): CC: Luis E Narayan [...] 07/09/2019 2:30 PM [facility] Neurodiagnostic at [facility] Arrive at: Manager Photo Area 3C [phone] 07/17/2019 9:20 AM LAB, THREE L Lab [facility] Arrive at: Manager Photo Area 3L [phone] 07/17/2019 10:20 AM Avila Medina MD Urology at [facility] Arrive at: Manager Photo Area 5B [phone] 07/22/2019 1:00 PM Luis E Narayan MD Primary Care at [facility] Arrive at: Manager Photo 2 [facility] [phone] 08/05/2019 1:45 PM Amy Aguiar MD Neurology at [facility] Arrive at: Manager Photo Area [phone] 08/13/2019 7:30 PM SLEEP, PHYSICIAN Sleep Center at [facility] Arrive at: Manager Photo 1 [place] [phone] Future Orders Complete By Expires Basic Metabolic [...] 04/09/2019 06/22/2020 fluticasone propionate (FLONASE) 50 mcg/actuation [place], Suspension 50 sprays by Each Nare route [...] patient. Please page the Regional Anesthesia Team ([phone]) with any questions or concerns. ?? Continue current management per primary service. ?? Thank you for the opportunity to have participated in the care of this patient. Julissa Morris MD Regional Team pager [phone] * Camilla Carrera - 06/30/2019 12:02 PM [...] rosario food. Resident paged - redirected this designer writer to someone else on urology team. [...] spec had hemolyzed/ Lab contacted by this designer writer at 2145 and new specimen has [...] mass suspicious (Bosniak 3- 4) for a O3mW2G3 renal cancer who presents with robotic-assisted left [...] uses inhalerswith good effect ??? Atherosclerosis of [place] coronary artery of [place] heart with angina pectoris 10/09/2007 History of [...] 4 ??? fluticasone propionate (FLONASE) 50 mcg/actuation [place], Suspension 50 sprays by Each Nare route [...] Medina MD - 07/01/2019 3:45 PM EST [facility] Operative Note Patient Name: Alize Gramajo : [id number] MR#: [id number] Case Date: 06/28/2019 Surgeon: Surgeon(s) and Role: * Avila Medina MD - Primary * Juanpablo Helm MD - Resident Registered Nurse Automation Technologist: Felisha Sher RN Preoperative diagnosis: renal mass [...] Info Order Time SPECIMEN TO PATHOLOGY [id number] [id number] renal mass Left renal mass and fat [...] additional robotic ports were placed and an assistant women's basketball coach port, air seal was placed. Using sharp [...] Admission order reviewed. Primary Insurance on file: [employer] [facility] Secondary Insurance on file: N/A Primary care provider on file: Luis E Narayan MD [phone] Advance Directive on file and Code Status: <no information>, Full Code Patient???s Functional Status: Independent using front wheel walker Living Situation: Home with support of family and friends [address] [facility] [address] Supports:Family and friends Assessment: Patient with no apparent RNCM/SW needs at this time. No housing, transportation, insurance, resources concerns identified at this time. Supports in place to achieve a safe post-hospital transition. No identified barriers to accessing necessary care and/or follow-up after discharge. Plan: Patient to d/c to Home via car when medically ready. heel washer stringing machine operator/Tester Vibrator Equipment will continue to follow patient???s progress and remain available if situation changes for coordination of care, psychosocial support and/or discharge planning. Rani Emanuel RN Pager [phone] Extension [phone] * Plan of Care - Allison Sánchez [...] meal coverage, correction doses administered/or held per [facility] order parameters in place. HR [...] Operative Note Patient Name: Alize Gramajo : [id number] MR#: [id number] Case Date: 06/28/2019 Surgeon: Surgeon(s) and Role: [...] Info Order Time SPECIMEN TO PATHOLOGY [id number] [id number] renal mass Left renal mass and fat [...] 1:00 PM EST Hospital Encounter Gastroenterology at [place] [phone] Roland Gooden MD [facility] [place] [address] 08/29/2024 1:00 PM EST - 08/29/2024 2:00 PM EST Surgery Gastroenterology at [place] [phone] Roland Gooden MD [facility] [place] [address] EGD, UPPER GI ENDOSCOPY (WRVU 2.09) 10/02/2024 1:00 PM EDT Office Visit Ophthalmology at [place] [phone] Juanpablo Hernandez MD [facility] [place] [address] 10/21/2024 9:30 AM EDT Office Visit Internal Medicine at [facility] [address] [place] [address] Daryn Garrett MD [facility] DR LILI [place] [address] 01/30/2025 1:30 PM EDT Laboratory Appointment Lab at [facility] Hematology Oncology [address] [place] [address] 01/30/2025 3:[address] [place] [phone] Arturo Cordero MD [facility] DR [place] [address] 01/30/2025 4:15 PM EDT Office Visit Hematology [place] [address] Arturo Cordero MD [facility] DR [place] [address] Scheduled Procedures Name Priority Associated Diagnoses Date/Ti [...] POC Routine 06/28/2019 11:13 AM EST MODIFIER NATY HARDEN 06/28/2019 8:39 AM EST Renal mass Lap, Partial Nephrectomy ([id number]) 06/28/2019 8:39 AM EST Renal mass POCT [...] of body mass or the acutely ill. [email or web address] eGFR 88 >=60 mL/min/1. 73 m?? [facility] Comment: The eGFR was calculated using the CKD-EPI equation. As with all creatinine based estimates of kidney function, eGFR values calculated with the CKD-EPI equation are not accurate in patients with acute kidney failure, extremes of body mass or the acutely ill. [email or web address] Blood specimen (specimen) 07/17/2019 9:47 AM EST 07/17/2019 9:56 AM EST Narrative Resulting Agency Comment Spec In Lab Avila Medina MD CHEMISTRY ORDERABLES Performing Organization Address City/[facility]/ZIP Co de Phone Number [facility] [place] [address] * POCT Glucose (07/01/2019 12:01 PM EST) Glucose, POC 124 65 - 199 mg/dL [facility] Comment: Supplemental ranges: <140 mg/dL before meals <180 mg/dL all other times of the day Blood specimen (specimen) 07/01/2019 12:01 PM EST 07/01/2019 12:01 PM EST Avila Medina MD POINT OF CARE TEST O RDERABLES Performing Organization Address City/[facility]/ZIP Co de Phone Number [facility] [place] [address] * POCT Glucose (07/01/2019 7:28 AM EST) Glucose, POC 123 65 - 199 mg/dL [facility] Comment: Supplemental ranges: <140 mg/dL before meals <180 mg/dL all other times of the day Blood specimen (specimen) 07/01/2019 7:28 AM EST 07/01/2019 7:28 AM EST Avila Medina MD POINT OF CARE TEST O RDERABLES Performing Organization Address City/[facility]/ZIP Co de Phone Number [facility] [place] [address] * POCT Glucose (06/30/2019 7:41 PM EST) Glucose, POC 120 65 - 199 mg/dL [facility] Comment: Supplemental ranges: <140 mg/dL before meals <180 mg/dL all other times of the day Blood specimen (specimen) 06/30/2019 7:41 PM EST 06/30/2019 7:41 PM EST Avila Medina MD POINT OF CARE TEST O ULISES [facility] [place] [address] * POCT Glucose (06/30/2019 3:15 PM EST) Glucose, POC 131 65 - 199 mg/dL [facility] Comment: Supplemental ranges: <140 mg/dL before meals <180 mg/dL all other times of the day Blood specimen (specimen) 06/30/2019 3:15 PM EST 06/30/2019 3:15 PM EST Avila Medina MD POINT OF CARE TEST O ULISES Performing Organization Address City/[facility]/ZIP Co de Phone Number [facility] [place] [address] * POCT Glucose (06/30/2019 11:52 AM EST) Glucose, POC 146 65 - 199 mg/dL [facility] Comment: Supplemental ranges: <140 mg/dL before meals <180 mg/dL all other times of the day Blood specimen (specimen) 06/30/2019 11:52 AM EST 06/30/2019 11:52 AM EST Avila Medina MD POINT OF CARE TEST O ULISES Performing Organization Address City/[facility]/ZIP Co de Phone Number [facility] [place] [address] * POCT Glucose (06/30/2019 7:48 AM EST) Glucose, POC 131 65 - 199 mg/dL [facility] Comment: Supplemental ranges: <140 mg/dL before meals <180 mg/dL all other times of the day Blood specimen (specimen) 06/30/2019 7:48 AM EST 06/30/2019 7:48 AM EST Avila Medina MD POINT OF CARE TEST O ULISES Performing Organization Address City/[facility]/ZIP Co de Phone Number [facility] [place] [address] * POCT Glucose (06/30/2019 3:26 AM EST) Glucose, POC 124 65 - 199 mg/dL [facility] Comment: Supplemental ranges: <140 mg/dL before meals <180 mg/dL all other times of the day Blood specimen (specimen) 06/30/2019 3:26 AM EST 06/30/2019 3:26 AM EST Avila Medina MD POINT OF CARE TEST O ULISES Performing Organization Address [facility] Co de Phone Number [facility] [place] [address] * POCT Glucose (06/29/2019 11:36 PM EST) Glucose, POC 153 65 - 199 mg/dL [facility] Comment: Supplemental ranges: <140 mg/dL before meals <180 mg/dL all other times of the day Blood specimen (specimen) 06/29/2019 11:36 PM EST 06/29/2019 11:36 PM EST Avila Medina MD POINT OF CARE TEST O ULISES Performing Organization Address City/[facility] Co de Phone Number [facility] [place] [address] * POCT Glucose (06/29/2019 3:36 PM EST) Glucose, POC 177 65 - 199 mg/dL [facility] Comment: Supplemental ranges: <140 mg/dL before meals <180 mg/dL all other times of the day Blood specimen (specimen) 06/29/2019 3:36 PM EST 06/29/2019 3:36 PM EST Avila Medina MD POINT OF CARE TEST O RDERABLES Performing Organization Address [facility] Co de Phone Number [facility] [place] [address] * POCT Glucose (06/29/2019 12:03 PM EST) Glucose, POC 138 65 - 199 mg/dL [facility] Comment: Supplemental ranges: <140 mg/dL before meals <180 mg/dL all other times of the day Blood specimen (specimen) 06/29/2019 12:03 PM EST 06/29/2019 12:03 PM EST Avila Medina MD POINT OF CARE TEST O RDERABLES Performing Organization Address [facility] de Phone Number [facility] [place] [address] * Creatinine Level Body Fluid YANDY Drain [...] AND STOO LS ORDERABLES Performing Organization Address [facility] Co de Phone Number [facility] [place] [address] * POCT Glucose (06/29/2019 6:53 AM EST) Glucose, POC 129 65 - 199 mg/dL [facility] Comment: Supplemental ranges: <140 mg/dL before meals <180 mg/dL all other times of the day Blood specimen (specimen) 06/29/2019 6:53 AM EST 06/29/2019 6:53 AM EST Avila Medina MD POINT OF CARE TEST O RDERABLES [facility] [place] [address] * (ABNORMAL) Differential, Automated (06/29/2019 2:57 AM EST) Pathologist [facility] Neutrophil % 73.6 % [facility] Neutrophil Absolute 7.96(H) 1.70 - 6.10 x10(3)/mc L [facility] Lymph % 15.1 % [facility] Lymphocytes Abs 1.6 0.9 - 3.2 x10(3)/mc L [facility] Monocyte % 9.2 % [facility] Monocyte Abs 1.0(H) 0.3 - 0.9 x10(3)/mc L [facility] Eos % 1.2 % [facility] Eosinophils Abs 0.1 0.0 - 0.4 x10(3)/mc L [facility] Basophil % 0.4 % [facility] Baso Absolute 0.0 0.0 - 0.1 x10(3)/mc L [facility] Immature Gran % 0.50 % [facility] Comment: Immature granulocytes(IG's)percentage and absolute count will include metamyelocytes, myelocytes, and promyelocytes. Blood smears from CBCs yielding IG's will be scanned manually for concordance. If this scan disagrees with the automated IG or if promyelocytes are noted, a manual differential will be performed. Immature Gran Absolute 0.05(H) 0.00 - 0.04 x10(3)/mc L [facility] Blood specimen (specimen) 06/29/2019 2:57 AM EST 06/29/2019 3:03 AM EST Narrative Resulting Agency Comment Spec In Lab Camilla Carrera MD HEMATOLOGY ORDERABLE S [facility] [place] [address] * (ABNORMAL) Hemogram (06/29/2019 2:57 AM EST) White Blood Cell 10.8(H) 4.0 - 9.5 x10(3)/[facility] Red Blood Cell 4.17 4.00 - 5.21 x10(6)/[facility] Hemoglobin 11.9 11.7 - 15.5 [...] HOSPITAL LABORATORY Platelet 277 145 - 357 x10(3)/[facility] RDW Standard Deviation 47.2(H) 37.0 - 46.0 fL [facility] RDW coefficient of variation 14.4(H) 11.5 - 14.1 % [facility] Mean Platelet Volume 9.4 7.6 - 12.9 fL [facility] NRBC% auto 0.0 % [facility] NRBC Absolute 0.000 0.000 - 0.000 x10(3)/ L [facility] Blood specimen (specimen) 06/29/2019 2:57 AM EST 06/29/2019 3:03 AM EST Narrative Resulting Agency Comment Spec In Lab Camilla Carrera MD HEMATOLOGY ORDERABLE S [facility] [place] [address] * (ABNORMAL) BMP w/fasting Glucose (06/29/2019 2:57 [...] of Diabetes Mellitus, Position Statement from the [place] [employer]. ??Diabetes Care, Volume 33, Supplement [...] of body mass or the acutely ill. http://[email or web address] eGFR 91 >=60 mL/min/1. 73 m?? [facility] Comment: The eGFR was calculated using the CKD-EPI equation. As with all creatinine based estimates of kidney function, eGFR values calculated with the CKD-EPI equation are not accurate in patients with acute kidney failure, extremes of body mass or the acutely ill. http://[email or web address] Blood specimen (specimen) 06/29/2019 2:57 AM EST 06/29/2019 3:03 AM EST Narrative Resulting Agency Comment Spec In Lab Avila Medina MD CHEMISTRY ORDERABLES Performing Organization Address [facility]/ZIP Co de Phone Number [facility] [address] * POCT Glucose (06/28/2019 9:57 PM EST) Glucose, POC 148 65 - 199 mg/dL [facility] Comment: Supplemental ranges: <140 mg/dL before meals <180 mg/dL all other times of the day Blood specimen (specimen) 06/28/2019 9:57 PM EST 06/28/2019 9:57 PM EST Avila Medina MD POINT OF CARE TEST O RDERABLES Performing Organization Address [facility]/ZIP Co de Phone Number [facility] [place] [address] * Creatinine Level Body Fluid YANDY Drain (06/28/2019 9:49 PM EST) Creatinine, Fluid 1.0 mg/dL [facility] Comment: No reference range is available for the specimen type submitted. ??The performance of this assay for the submitted type has not been validated and results should be interpreted accordingly and with regard to the patient's clinical status. [place] Fld Type YANDY Drain [facility] YANDY Drain 06/28/2019 9:49 PM EST 06/28/2019 10:09 PM EST Narrative Resulting Agency Comment Spec In Lab Avila Medina MD BODY FLUIDS AND STOO LS ORDERABLES Performing Organization Address [facility] Co de Phone Number [facility] [place] [address] * POCT Glucose (06/28/2019 4:13 PM EST) Glucose, POC 116 65 - 199 mg/dL [facility] Comment: Supplemental ranges: <140 mg/dL before meals <180 mg/dL all other times of the day Blood specimen (specimen) 06/28/2019 4:13 PM EST 06/28/2019 4:13 PM EST Avila Medina MD POINT OF CARE TEST O RDERABLES Performing Organization Address [facility]/ZIP Co de Phone Number [facility] [place] [address] * (ABNORMAL) BMP w/fasting Glucose (06/28/2019 2:30 [...] of Diabetes Mellitus, Position Statement from the [place] [employer]. ??Diabetes Care, Volume 33, Supplement [...] of body mass or the acutely ill. http://Square/[facility] eGFR 94 >=60 mL/min/1. 73 m?? [facility] Comment: The eGFR was calculated using the CKD-EPI equation. As with all creatinine based estimates of kidney function, eGFR values calculated with the CKD-EPI equation are not accurate in patients with acute kidney failure, extremes of body mass or the acutely ill. http://[email or web address] Blood specimen (specimen) 06/28/2019 2:30 PM EST 06/28/2019 2:59 PM EST Narrative Resulting Agency Comment Spec In Lab Avila Medina MD CHEMISTRY ORDERABLES [facility] [place] [address] * Hemoglobin and Hematocrit, blood (06/28/2019 2:30 PM EST) Hemoglobin 12.5 11.7 - 15.5 gm/dL [facility] Hematocrit 37.8 35.7 - 45.8 % [facility] Blood specimen (specimen) 06/28/2019 2:30 PM EST 06/28/2019 2:59 PM EST Narrative Resulting Agency Comment Spec In Lab Avila Medina MD HEMATOLOGY ORDERABLE S Performing Organization Address City/[facility]/ZIP Co de Phone Number [facility] [address] * POCT Glucose (06/28/2019 2:05 PM EST) Glucose, POC 133 65 - 199 mg/dL [facility] Comment: Supplemental ranges: <140 mg/dL before meals <180 mg/dL all other times of the day Blood specimen (specimen) 06/28/2019 2:05 PM EST 06/28/2019 2:05 PM EST Avila Medina MD POINT OF CARE TEST O RDLESLEY Performing Organization Address [facility]/ZIP Co de Phone Number [facility] [place] [address] * Specimen to Pathology (06/28/2019 12:59 PM EST) AP Specimen 06/28/2019 12:5 9 PM EST 06/28/2019 12:59 PM EST Narrative [facility] - 06/28/2019 12:59 PM EST Specimen requisition ordered. ??Separate Pathology report to follow Avila Medina MD PATHOLOGY/CYTOLOGY O RDLESLEY Performing Organization Address [facility]/ZIP Co de Phone Number [facility] [place] [address] * Solid Tumor NGS Panel (06/28/2019 12:57 PM EST) Tissue specimen (specimen) 06/28/2019 12:57 PM EST 05/28/2020 1:28 PM EST Narrative Resulting Agency Comment Spec In Lab Avila Medina MD PATHOLOGY/CYTOLOGY O RDERACELY [facility] [place] [address] * Surgical Pathology Report (06/28/2019 12:57 PM EST) Final Diagnosis [id number] ? Location: [facility]; [facility]; A The signing pathologist has (i) examined [...] Christine Pablo Verified: ??07/04/2019 ?Pathologist Performed at: ??-[facility] Dept. of Pathology, [place], [place] DISCUSSION Whole slide scan: [id number] CLINICAL INFORMATION Specimen Submitted: A - [...] Inking: Parenchymal margin inked black. Sections/Processi ng: Tetryl Wringer Operator sections in 10 cassettes as follows: ?A1-A5: ??Tumor to closest margin ?A6: ??Tumor to fat ?A7-A8: ??Additional product representative tumor ?A9: ??Lesion to normal kidney ?A10: ??Normal kidney ??diamante 07/04/2019 11:12 AM EST [facility] SPECIMEN FROM KIDNEY / Unknown 06/28/2019 12:57 PM EST 06/28/2019 12:57 PM EST Avila Medina MD PATHOLOGY/CYTOLOGY O RDERABLES [facility] [place] [address] * (ABNORMAL) BLOOD GAS 2 ARTERIAL (06/28/2019 [...] [facility]ARE [facility] FIO2 Art 56 % [facility] PF Ratio Art 354 [facility] [facility] Temp Art [address] [facility] Blood specimen (specimen) 06/28/2019 11:13 AM EST 06/28/2019 11:13 AM EST Avila Medina MD POINT OF CARE TEST O RDERACELY Performing Organization Address City/[facility] Co de Phone Number [facility] [place] [address] * POCT Glucose (06/28/2019 8:17 AM EST) Glucose, POC 146 65 - 199 mg/dL [facility] Comment: Supplemental ranges: <140 mg/dL before meals <180 mg/dL all other times of the day Blood specimen (specimen) 06/28/2019 8:17 AM EST 06/28/2019 8:17 AM EST Avila Medina MD POINT OF CARE TEST O ULISES Performing Organization Address [facility] Co de Phone Number [facility] [place] [address] documented in this encounter Visit Diagnoses Diagnosis Renal mass, left Unspecified disorder of kidney and ureter Renal mass Unspecified disorder of kidney and ureter Irritable bowel syndrome with constipation Irritable bowel syndrome documented in this encounter Admitting Diagnoses Diagnosis [...] PRN, Starting on 06/28/19 at 1619, Until 07/01/19 at 1846, Wheezing, [...] Oral, EVERY 8 HOURS PRN, Starting on 06/28/19 at 1619, Until 07/01/19 at 1846, Nausea, [...] Mon06/28/19 at 1619, Until 07/01/19 at 1846, Constipation, Administer if no bowel [...] Tomlinson, VEDA) 0600 (Given - Provider: Nelson Tomlinson RN)1239 [...] 1009 (Given - Provider: Christine Wu RN) 0809 (Given - Provider: Allison Sánchez RN) 0923 (Given - Provider: Yue Moore RN) budesonide-formoterol (SYMBICORT) 80-4.5 mcg/actuation inhaler 2 Inhalation 2 .Inhalation , Inhalation, EVERY 12 HOURS SCHEDULED (2 times per day), First dose on 06/29/19 at 2100, Until Discontinued, Routine 2138 (Given - Provider: Nelson Tomlinson RN) 0810 (Given - Provider: Allison Sánchez RN)202 (Given - Provider: Nelson Tomlinson RN) 0933 (Given - Provider: Yue Moore, VEDA) docusate sodium (Colace) capsule 100 mg 100 mg, Oral, 2 TIMES DAILY, First dose on Mon06/28/19 at 2100, Until Discontinued, Routine 1009 (Given - Provider: Christine Wu RN)2138 (Given - Provider: Nelson Tomlinson RN) 0809 (Given - Provider: Allison Sánchez, VEDA)2011 (Given - Provider: Nelson Tomlinson RN) 0922 (Given - Provider: Yue Moore RN) heparin [...] 2139 (Given - Provider: Nelson Tomlinson RN) 0533 (Given - Provider: Nelson Tomlinson RN)1344 (Given - Provider: Allison Sánchez, VEDA)2110 (Given - Provider: Nelson Tomlinson RN) 0532 (Given - Provider: Nelson Tomlinson RN)1429 (Given - Provider: Yue Moore, VEDA) [...] Yue Moore, VEDA)1238 (Given - Provider: Yue Moore RN) insulin lispro (HumaLOG) VIAL injection 1-5 [...] (Patch Removed - Provider: Nelson Tomlinson RN) 214 (Patch Removed - Provider: Nelson Tomlinson RN) [...] & shoulders) 0811 (Given - Provider: Allison Sánchez, VEDA)2013 (Given - Provider: Nelson Tomlinson RN) 09 [...] 09 (Given - Provider: Yue Moore, VEDA) nicotine (NICODERM [...] and location) verified - Provider: Alize Bernard RN)2099 (Patch (dose and location) verified - Provider: [...] Until Discontinued 1817 (Given - Provider: Carlota Rocha RN) 1631 (Given - Provider: Allison Sánchez RN) sodium chloride 0.9 % (flush) flush 5 mL 5 mL, Intravenous, 2 TIMES DAILY, First dose on Mon06/28/19 at 2100, Until Discontinued, Recovery (Recovery-Hospital Unit), Routine 1013 (Given - Provider: Christine Wu, VEDA)2139 (Given - Provider: Nelson Tomlinson RN) 08 (Given - Provider: Allison Sánchez RN)2011 (Given - Provider: Nelson Tomlinson, VEDA) 0930 (Given - Provider: Yue Moore, VEDA) traZODone (Desyrel) tablet 100 mg 100 mg, Oral, NIGHTLY, First dose on Mon06/28/19 at 2100, Until Discontinued, Routine 213 (Given - Provider: Nelson Tomlinson RN) 2011 [...] Routine 0638 (Given - Provider: Alize Bernard, RN)1107 (Given - Provider: Christine Wu, VEDA) albuterol 90 mcg/actuation inhaler 2 puff 2 puff, Inhalation, EVERY 4 HOURS PRN, Starting on Mon06/29/19 at 1728, Until 07/01/19 at 1846, Wheezing, Shortness of Breath, Routine, Is there a contraindication to the patient receiving this medication as a nebulizer? Yes 181 (Given - Provider: Carlota Rocha RN) cyclobenzaprine [...] Christine Wu, VEDA)1512 (Given - Provider: Christine Wu RN)2146 (Given [...] Unit) 1057 (Given - Provider: Christine Wu RN)2144 (See Alternative - Provider: Nelson Tomlinson RN) [...] Christine Wu RN)2145 (Given - Provider: Nelson Tomlinson RN) 1240 (Given - Provider: Allison Sánchez RN) polyethylene glycol (Miralax) packet 17 g [...] Routine documented in this encounter Care Teams Security Police Officer Relationship Specialty Start Date End Date Luis E Narayan MD [facility] [place] [address] [address] PCP - General Family Medicine 9/17/19 7/13/22 documented as of this encounter
--- OUTSIDE RECORDS SUMMARY | 2024-08-20 16:03 | XMS_ITS | Encounter Summary ---
Author Organization [facility] [place] [address] Care Team Providers Care Tractor Drill Operator Name Role Phone Luis E Narayan MD Primary Care Provider Reason for Referral * Diagnostic Test (Routine) - Closed Specialty Diagnoses / Procedures Referred By Gonzalez kumari Referred To Contact Cardiology Diagnoses Peripheral edema Coronary artery disease involving [place] coronary artery of [place] heart with angina pectoris H/O heart artery stent Procedures Echocardiogram Transthoracic([facility]) Luis E Narayan MD [facility] [place] [address] [facility] [place] [address] Referral ID Status Reason Start Date Expiration Date V isits Requested Visits Authorized [id number] Closed Specialty Service Requested 06/25/2019 08/23/2019 1 1 Reason for Visit * Diagnostic Test (Routine) - Closed Specialty Diagnoses / Procedures Referred By Gonzalez kumari Referred To Contact Cardiology Diagnoses Peripheral edema Coronary artery disease involving [place] coronary artery of [place] heart with angina pectoris H/O heart artery stent Procedures Echocardiogram Transthoracic([facility]) Luis E Narayan MD [facility] [place] [address] [facility] [place] [address] Referral ID Status Reason Start Date Expiration Date V isits Requested Visits Authorized [id number] Closed Specialty Service Requested 06/25/2019 08/23/2019 1 1 Encounter Details Date Type Department Care Team (Latest Contact Info) Description 06/27/2019 10:19 AM EST - 06/27/2019 1:05 PM EST Hospital Encounter Non-Invasive [place] [phone] Luis E Narayan MD [facility] [address] [place] [address] Peripheral edema; Coronary artery disease involving [place] coronary artery of [place] heart with angina pectoris; H/O heart artery [...] 04/09/2019 06/22/2020 fluticasone propionate (FLONASE) 50 mcg/actuation Sarah, Suspension 50 sprays by Each Nare route [...] EST Hospital Encounter Gastroenterology at [place] [phone] Roland Gooden MD [facility] [place] [address] 08/29/2024 1:00 PM EST - 08/29/2024 2:00 PM EST Surgery Gastroenterology at [place] [phone] Roland Gooden MD [facility] [place] [address] EGD, UPPER GI ENDOSCOPY (WRVU 2.09) 10/02/2024 1:00 PM EDT Office [place] [phone] Juanpablo Hernandez MD [facility] [place] [address] 10/21/2024 9:30 AM EDT Office Visit Internal Medicine at [address] [phone] Daryn Garrett MD [facility] [address] [place] [address] 01/30/2025 1:30 PM EDT Laboratory Appointment Lab at [facility] Hematology Oncology [address] [place] [phone] 01/30/2025 3:[address] [place] [phone] Arturo Cordero MD [facility] [place] [address] 01/30/2025 4:15 PM EDT Office Visit Hematology [place] [phone] Arturo Cordero MD [facility] [address] [place] [address] Scheduled Procedures Name Priority Associated Diagnoses Date/Ti me EGD, UPPER GI ENDOSCOPY (WRVU 2.09) Irritable bowel syndrome with constipation 08/29/2024 1:00 PM EST COLONOSCOPY, DIAGNOSTIC (WRVU 3.26) Irritable bowel syndrome with constipation 08/29/2024 1:00 PM EST documented as of this encounter Procedures Procedure Name Priority Date/Time Associated Diagnosis Comments ECHO COMPLETE Routine 06/27/2019 11:38 AM EST Peripheral edema Coronary artery disease involving [place] coronary artery of [place] heart with angina pectoris H/O heart artery stent documented in this encounter Results * ECHO COMPLETE (06/27/2019 11:38 AM EST) EF 71 HEARTLAB SYSTEM Anatomical Region Laterality Modality Other 06/27/2019 Narrative 06/27/2019 11:52 AM EST Procedure: ?Transthoracic Echocardiogram Patient: ?JOSSELINE Tran ?(Age): 1960(58y) Med Rec#: ? [id number] ?Sex: ?F ? Site Loc: ? [facility] ?Ht / Wt: ??158(cm)/101(kg) Pt. Loc: ?Echo Lab ?BSA: ?2.01 Study Date: ?? 06/27/2019 ?Pt. Type: Outpatient Tape: ? Referring: PIOTR Reading: Jeff Barraza ??([id number]) Book Canvasser: Sumit Ratliff [facility] Diagnosis: *Edema, unspecified (R60.9) *Atherosclerotic heart disease of [place] coronary artery with unspecified angina pectoris (I25.119) [...] E-wave Vmax ?1 ?m/sec ? MV deceleration ibsl608.5 ?msec ? MV A-wave Vmax ?1 ?m/sec [...] ? Mid-Inferior ?Normal ? Mid-Inferoseptal ?Normal ? [place]-Septal ? Normal ? [place]-Anterior ? Normal ? [place]-Lateral ?Normal ? [place]-Inferior ? Normal ? [place]-Tip ?Normal ? This report has been electronically signed by: Jeff Barraza MD ? 06/27/2019 11:51:50 Images reviewed and interpretation verified [facility] Cardiac Ultrasound Laboratory Procedure Note Jeff Barraza MD - 06/27/2019 Procedure: Transthoracic Echocardiogram Patient: JOSSELINE LOMAX(Age): 1960(58y) Med Rec#: [id number] Sex: F Site Loc: [facility] Ht / Wt: 158(cm)/101(kg) Pt. Loc: Echo Lab BSA: 2.01 Study Date: 06/27/2019 Pt. Type: Outpatient Tape: Referring: PIOTR Reading: Jeff Barraza ([id number]) Book Canvasser: Sumit Ratliff RDCS Diagnosis: *Edema, unspecified (R60.9) *Atherosclerotic heart disease of [place] coronary artery with unspecified angina pectoris (I25.119) [...] MV E-wave Vmax 1 m/sec MV deceleration ltak163.5 msec MV A-wave Vmax 1 m/sec MV [...] Normal Mid-Posterolateral Normal Mid-Inferior Normal Mid-Inferoseptal Normal [place]-Septal Normal [place]-Anterior Normal [place]-Lateral Normal [place]-Inferior Normal [place]-Tip Normal This report has been electronically signed by: Jeff Barraza MD 06/27/2019 11:51:50 Images reviewed and interpretation verified [facility] Cardiac Ultrasound Laboratory Luis E Narayan MD ECHO ORDER[facility]LES documented in this encounter Visit Diagnoses Diagnosis Peripheral edema Edema Coronary artery disease involving [place] coronary artery of [place] heart with angina pectoris H/O heart artery stent x4 LCX Postsurgical percutaneous transluminal coronary angioplasty status Irritable bowel syndrome with constipation Irritable bowel syndrome documented in this encounter Care Teams Tractor Drill Operator Relationship Specialty Start Date End Date Luis E Narayan MD [facility] [place] [address] [address] PCP - General Family Medicine 03/26/19 01/19/22 documented as of this encounter
--- OUTSIDE RECORDS SUMMARY | 2024-08-20 16:03 | XMS_ITS | Encounter Summary ---
Author Organization [facility] [place] [address] Care Team Providers Care Property Insurance Agent Name Role Phone Luis E Narayan MD Primary Care Provider Reason for Visit * Auth/Cert Specialty Diagnoses / Procedures Referred By Gonzalez kumari Referred To Contact Diagnoses Renal Mass Procedures PRO LAP, PARTIAL NEPHRECTOMY LAPAROSCOPY, PARTIAL NEPHRECTOMY, ROBOTIC ASSIST (WRVU 27.41) MODIFIER ROBOT,DAVINCI XI Referral ID Status Reason Start Date Expiration Date Visits Re quested Visits Authorized [id number] 1 1 Encounter Details Date Type Department Care Team (Latest Contact Info) Description 06/28/2019 7:02 AM EST - 07/01/2019 4:46 PM [facility] Hospital Encounter [address] [place] [address] Avila Medina MD [facility] [place] [address] Renal mass, left Discharge Disposition: Home Social [...] Hospital Course: Alize Gramajo was admitted to [facility] on 06/28/2019 through the Same Day Surgery [...] that part of your care. Urology Clinic: [phone] PCP: Luis E Narayan MD, . Please follow-up with your PCP in 1-2 weeks or sooner as needed. Scheduled Appointments: The following appointments have been scheduled on your behalf: Future Appointments and Orders Future Appointments and Orders Future Appointments Provider Department Dept Phone 07/09/2019 2:30 PM [facility] Neurodiagnostic at [facility] Arrive at: Nurse Auditor Area [phone] 07/17/2019 9:20 AM LAB, THREE L Lab 3L [facility] Arrive at: Nurse Auditor Area 07/17/2019 10:20 AM Avila Medina MD Urology at [facility] Arrive at: Nurse Auditor Area 5B [phone] 07/22/2019 1:00 PM Luis E Narayan MD Primary Care at [facility] Arrive at: Nurse Auditor 2 South [phone] 08/05/2019 1:45 PM Amy Aguiar MD Neurology at [facility] Arrive at: Nurse Auditor Area [phone] 08/13/2019 7:30 PM SLEEP, PHYSICIAN Sleep Center at [facility] Arrive at: Nurse Auditor [address] [place] [phone] Future Orders Complete By Expires Basic Metabolic [...] 07/09/2019 2:30 PM C-ELECTRONEURO, DIAGNOSTICS Neurodiagnostic at [facility] Arrive at: Nurse Auditor Area [phone] 07/17/2019 9:20 AM LAB, THREE L Lab [address] [place] [address] Arrive at: [facility] Area [phone] 07/17/2019 10:20 AM Avila Medina MD Urology at [facility] Arrive at: [facility] [phone] 07/22/2019 1:00 PM Luis E Narayan MD Primary Care at [facility] Arrive at: Nurse Auditor [address] [facility] [phone] 08/05/2019 1:45 PM Amy Aguiar MD Neurology at [facility] Arrive at: [facility] [phone] 08/13/2019 7:30 PM SLEEP, PHYSICIAN Sleep Center at [facility] Arrive at: Nurse Auditor 1 [place] [phone] Future Orders Complete By Expires Basic Metabolic [...] Urologic Surgery Team at [facility]. If you have any questions or concerns, please feel free to contact us. Provider Contact Information: Urology Clinic: [phone] [facility] (after business hours): CC: Luis E Narayan [...] and I agree with them as documented. Aslhyn Campos MD documented in this encounter Discharge [...] not draining. Do not remove sutures or shavno. COMFORT Some incision soreness can be expected. [...] 07/09/2019 2:30 PM C-ELECTRONEURO, DIAGNOSTICS Neurodiagnostic at [facility] Arrive at: Nurse Auditor Area 3C [phone] 07/17/2019 9:20 AM LAB, THREE L [facility] Arrive at: Nurse Auditor Area 3L [phone] 07/17/2019 10:20 AM Avila Medina MD Urology at [facility] Arrive at: Nurse Auditor Area 5B [phone] 07/22/2019 1:00 PM Luis E Narayan MD Primary Care at [facility] Arrive at: Nurse Auditor [address] [facility] [phone] 08/05/2019 1:45 PM Amy Aguiar MD Neurology at [facility] Arrive at: Nurse Auditor Area [phone] 08/13/2019 7:30 PM SLEEP, PHYSICIAN Sleep Center at [facility] Arrive at: Nurse Auditor 1 [place] [phone] Future Orders Complete By Expires Basic Metabolic [...] 04/09/2019 06/22/2020 fluticasone propionate (FLONASE) 50 mcg/actuation [place], Suspension 50 sprays by Each Nare route [...] patient. Please page the Regional Anesthesia Team ([phone]) with any questions or concerns. ?? Continue current management per primary service. ?? Thank you for the opportunity to have participated in the care of this patient. Julissa Morris MD Regional Team pager [phone] * Camilla Carrera - 06/30/2019 12:02 PM EST Urology Inpatient Progress Note ID: Alize Gramajo is a 58 y.o. female with history of ASCVD (ME with Stent 2007, on plavix), DM2, HTN, [...] rosario food. Resident paged - redirected this communications writer to someone else on urology team. [...] spec had hemolyzed/ Lab contacted by this communications writer at 2145 and new specimen has [...] 58 y.o. female with history of ASCVD (ME with Stent 2007, on plavix), DM2, HTN, [...] Alize Gramajo 58 y.o. 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 Atherosclerosis of [place] coronary artery of [place] heart with angina pectoris 10/09/2007 History of [...] 4 ??? fluticasone propionate (FLONASE) 50 mcg/actuation [place], Suspension 50 sprays by Each Nare route [...] Medina MD - 07/01/2019 3:45 PM EST [facility] Operative Note Patient Name: Alize Gramajo : [id number] MR#: [id number] Case Date: 06/28/2019 Surgeon: Surgeon(s) and Role: * Avila Medina MD - Primary * Juanpablo Helm MD - Resident Registered Nurse It Programmer Analyst: Felisha Sher RN Preoperative diagnosis: renal mass [...] Info Order Time SPECIMEN TO PATHOLOGY [id number] [id number] renal mass Left renal mass and fat [...] additional robotic ports were placed and an senior office support assistant sosa port, air seal was placed. Using sharp [...] Admission order reviewed. Primary Insurance on file: [facility] Secondary Insurance on file: N/A Primary care provider on file: Luis E Narayan MD [phone] Advance Directive on file and Code Status: <no information>, Full Code Patient???s Functional Status: Independent using front wheel walker Living Situation: Home with support of family and friends [address] [facility] [phone] Supports:Family and friends Assessment: Patient with no apparent RNCM/SW needs at this time. No housing, transportation, insurance, resources concerns identified at this time. Supports in place to achieve a safe post-hospital transition. No identified barriers to accessing necessary care and/or follow-up after discharge. Plan: Patient to d/c to Home via car when medically ready. polymerization supervisor/Executive Manager will continue to follow patient???s progress and remain available if situation changes for coordination of care, psychosocial support and/or discharge planning. Rani Emanuel RN Pager [phone] * Plan of Care - Allison Sánchez [...] meal coverage, correction doses administered/or held per [facility] order parameters in place. HR regular, lung [...] Operative Note Patient Name: Alizereinaldo Gramajo : [id number] MR#: [id number] Case Date: 06/28/2019 Surgeon: Surgeon(s) and Role: [...] Info Order Time SPECIMEN TO PATHOLOGY [id number] [id number] renal mass Left renal mass and fat [...] EST Hospital Encounter Gastroenterology at [place] [phone] Roland Gooden MD [facility] [place] [address] 08/29/2024 1:00 PM EST - 08/29/2024 2:00 PM EST Surgery Gastroenterology at [place] [phone] Roland Gooedn MD [facility] [place] [address] EGD, UPPER GI ENDOSCOPY (WRVU 2.09) 10/02/2024 1:00 PM EDT Office Visit Ophthalmology at [place] [phone] Juanpablo Hernandez MD [facility] [place] [address] 10/21/2024 9:30 AM EDT Office Visit Internal Medicine at [facility] [address] [place] [address] Daryn Garrett MD [facility] DR LILI [place] [address] 01/30/2025 1:30 PM EDT Laboratory Appointment Lab at [facility] Hematology Oncology [address] [place] [phone] 01/30/2025 3:[address] [place] [phone] Arturo Cordero MD [facility] DR H[place]OLOG[place] [address] 01/30/2025 4:15 PM EDT Office Visit Hematology [place] [address] Arturo Cordero MD [facility] DR [place]OLOG[place] [address] Scheduled Procedures Name Priority Associated Diagnoses Date/Ti [...] AM EST Renal mass Lap, Partial Nephrectomy ([id number]) 06/28/2019 8:39 AM EST Renal mass POCT GLUCOSE Routine 06/28/2019 8:17 AM EST documented in this encounter Results * Basic Metabolic Panel (non-fasting) (07/17/2019 9:47 AM EST) Glucose 131 65 - 199 mg/dL [facility] Comment:Diabetes: >=200 mg/d L plus symptoms Blood Urea Nitrogen 17 8 - 18 mg/dL [facility] Creatinine 0.84 0.70 - 1.20 mg/dL [facility] Sodium 140 135 - 145 mmol/L [facility] Potassium 4.5 3.5 - 5.0 mmol/L [facility] Comment: Please note: ??Patients with WBC >100,000 may have falsely elevated Potassium levels. ??For accurate Potassium quantification in these patients send serum separator tube (gold top) for subsequent determinations. ??Contact the Clinical Chemistry Laboratory if there are any questions. Chloride 102 98 - 107 mmol/L [facility] Carbon Dioxide 28 22 - 31 mmol/L [facility] Anion Gap 10 5 - 15 mmol/L [facility] Calcium 10.1 8.5 - 10.5 mg/dL [facility] Est Glomerular Filtration Rate 76 >=60 mL/min/1. 73 m?? [facility] Comment: The eGFR was calculated using the CKD-EPI equation. As with all creatinine based estimates of kidney function, eGFR values calculated with the CKD-EPI equation are not accurate in patients with acute kidney failure, extremes of body mass or the acutely ill. http://Tradescape/[facility] eGFR 88 >=60 mL/min/1. 73 m?? [facility] Comment: The eGFR was calculated using the CKD-EPI equation. As with all creatinine based estimates of kidney function, eGFR values calculated with the CKD-EPI equation are not accurate in patients with acute kidney failure, extremes of body mass or the acutely ill. [email or web address] Blood specimen (specimen) 07/17/2019 9:47 AM EST 07/17/2019 9:56 AM EST Narrative Resulting Agency Comment Spec In Lab Avila Medina MD CHEMISTRY ORDERABLES Performing Organization Address [facility] Co de Phone Number [facility] [place] [address] * POCT Glucose (07/01/2019 12:01 PM EST) Glucose, POC 124 65 - 199 mg/dL [facility] Comment: Supplemental ranges: <140 mg/dL before meals <180 mg/dL all other times of the day Blood specimen (specimen) 07/01/2019 12:01 PM EST 07/01/2019 12:01 PM EST Avila Medina MD POINT OF CARE TEST O RDERABLES Performing Organization Address [facility] Co de Phone Number [facility] [place] [address] * POCT Glucose (07/01/2019 7:28 AM EST) Glucose, POC 123 65 - 199 mg/dL [facility] Comment: Supplemental ranges: <140 mg/dL before meals <180 mg/dL all other times of the day Blood specimen (specimen) 07/01/2019 7:28 AM EST 07/01/2019 7:28 AM EST Avila Medina MD POINT OF CARE TEST O RDERABLES Performing Organization Address [facility] Co de Phone Number [facility] [place] [address] * POCT Glucose (06/30/2019 7:41 PM EST) Glucose, POC 120 65 - 199 mg/dL [facility] Comment: Supplemental ranges: <140 mg/dL before meals <180 mg/dL all other times of the day Blood specimen (specimen) 06/30/2019 7:41 PM EST 06/30/2019 7:41 PM EST Avila Medina MD POINT OF CARE TEST O ULISES [facility] [place] [address] * POCT Glucose (06/30/2019 3:15 PM EST) Glucose, POC 131 65 - 199 mg/dL [facility] Comment: Supplemental ranges: <140 mg/dL before meals <180 mg/dL all other times of the day Blood specimen (specimen) 06/30/2019 3:15 PM EST 06/30/2019 3:15 PM EST Avila Medina MD POINT OF CARE TEST Junior MONTGOMERY Performing Organization Address City/[facility]/ZIP Co de Phone Number [facility] [place] [address] * POCT Glucose (06/30/2019 11:52 AM EST) Glucose, POC 146 65 - 199 mg/dL [facility] Comment: Supplemental ranges: <140 mg/dL before meals <180 mg/dL all other times of the day Blood specimen (specimen) 06/30/2019 11:52 AM EST 06/30/2019 11:52 AM EST Avila Medina MD POINT OF CARE TEST O ULISES [facility] [place] [address] * POCT Glucose (06/30/2019 7:48 AM EST) Glucose, POC 131 65 - 199 mg/dL [facility] Comment: Supplemental ranges: <140 mg/dL before meals <180 mg/dL all other times of the day Blood specimen (specimen) 06/30/2019 7:48 AM EST 06/30/2019 7:48 AM EST Avila Medina MD POINT OF CARE TEST O ULISES Performing Organization Address [facility] Co de Phone Number [facility] [place] [address] * POCT Glucose (06/30/2019 3:26 AM EST) Glucose, POC 124 65 - 199 mg/dL [facility] Comment: Supplemental ranges: <140 mg/dL before meals <180 mg/dL all other times of the day Blood specimen (specimen) 06/30/2019 3:26 AM EST 06/30/2019 3:26 AM EST vAila Medina MD POINT OF CARE TEST O ULISES Performing Organization Address [facility] Co de Phone Number [facility] [place] [address] * POCT Glucose (06/29/2019 11:36 PM EST) Glucose, POC 153 65 - 199 mg/dL [facility] Comment: Supplemental ranges: <140 mg/dL before meals <180 mg/dL all other times of the day Blood specimen (specimen) 06/29/2019 11:36 PM EST 06/29/2019 11:36 PM EST Avila Medina MD POINT OF CARE TEST O ULISES Performing Organization Address City/[facility] Co de Phone Number [facility] [place] [address] * POCT Glucose (06/29/2019 3:36 PM EST) Glucose, POC 177 65 - 199 mg/dL [facility] Comment: Supplemental ranges: <140 mg/dL before meals <180 mg/dL all other times of the day Blood specimen (specimen) 06/29/2019 3:36 PM EST 06/29/2019 3:36 PM EST Avila Medina MD POINT OF CARE TEST O RDERABLES Performing Organization Address [facility] Co de Phone Number [facility] [place] [address] * POCT Glucose (06/29/2019 12:03 PM EST) Glucose, POC 138 65 - 199 mg/dL [facility] Comment: Supplemental ranges: <140 mg/dL before meals <180 mg/dL all other times of the day Blood specimen (specimen) 06/29/2019 12:03 PM EST 06/29/2019 12:03 PM EST Avila Medina MD POINT OF CARE TEST O DENISEERABLES Performing Organization Address [facility] Co de Phone Number [facility] [place] [address] * Creatinine Level Body Fluid YANDY Drain (06/29/2019 10:29 AM EST) Creatinine, Fluid 0.8 mg/dL [facility] Comment: No reference range is available for the specimen type submitted. ??The performance of this assay for the submitted type has not been validated and results should be interpreted accordingly and with regard to the patient's clinical status. Creat, Fld Type YANDY Drain [facility] YANDY Drain 06/29/2019 10:2 9 AM EST 06/29/2019 11:00 AM EST Narrative Resulting Agency Comment Spec In Lab Avila Medina MD BODY FLUIDS AND STOO LS ORDERABLES Performing Organization Address [facility] Co de Phone Number [facility] [place] [address] * POCT Glucose (06/29/2019 6:53 AM EST) Glucose, POC 129 65 - 199 mg/dL [facility] Comment: Supplemental ranges: <140 mg/dL before meals <180 mg/dL all other times of the day Blood specimen (specimen) 06/29/2019 6:53 AM EST 06/29/2019 6:53 AM EST Avila Medina MD POINT OF CARE TEST O RDERABLES [facility] [place] [address] * (ABNORMAL) Differential, Automated (06/29/2019 2:57 AM EST) Pathologist [facility] Neutrophil % 73.6 % [facility] Neutrophil Absolute 7.96(H) 1.70 - 6.10 x10(3)/mc L [facility] Lymph % 15.1 % [facility] Lymphocytes Abs 1.6 0.9 - 3.2 x10(3)/ L [facility] Monocyte % 9.2 % [facility] Monocyte Abs 1.0(H) 0.3 - 0.9 x10(3)/mc L [facility] Eos % 1.2 % [facility] Eosinophils Abs 0.1 0.0 - 0.4 x10(3)/ L [facility] Basophil % 0.4 % [facility] Baso Absolute 0.0 0.0 - 0.1 x10(3)/mc L [facility] Immature Gran % 0.50 % [facility] Comment: Immature granulocytes(IG's)percentage and absolute count will include metamyelocytes, myelocytes, and promyelocytes. Blood smears from CBCs yielding IG's will be scanned manually for concordance. If this scan disagrees with the automated IG or if promyelocytes are noted, a manual differential will be performed. Immature Gran Absolute 0.05(H) 0.00 - 0.04 x10(3)/mc L [facility] Blood specimen (specimen) 06/29/2019 2:57 AM EST 06/29/2019 3:03 AM EST Narrative Resulting Agency Comment Spec In Lab Camilla Carrera MD HEMATOLOGY ORDERABLE S [facility] [place] [address] * (ABNORMAL) Hemogram (06/29/2019 2:57 AM EST) White Blood Cell 10.8(H) 4.0 - 9.5 x10(3)/mc L [facility] Red Blood Cell 4.17 4.00 - 5.21 x10(6)/mc L [facility] Hemoglobin 11.9 11.7 - 15.5 gm/dL [facility] Hematocrit 37.3 35.7 - 45.8 % [facility] Mean Cell Volume 89.4 82.6 - 94.4 fL [facility] Mean Cell Hemoglobin 28.5 27.1 - 32.0 pg [facility] Mean Cell Hemoglobin Concentration 31.9 31.7 - 35.0 gm/dL [facility] Platelet 277 145 - 357 x10(3)/mc L [facility] RDW Standard Deviation 47.2(H) 37.0 - 46.0 fL [facility] RDW coefficient of variation 14.4(H) 11.5 - 14.1 % [facility] Mean Platelet Volume 9.4 7.6 - 12.9 fL [facility] NRBC% auto 0.0 % [facility] NRBC Absolute 0.000 0.000 - 0.000 x10(3)/mc L [facility] Blood specimen (specimen) 06/29/2019 2:57 AM EST 06/29/2019 3:03 AM EST Narrative Resulting Agency Comment Spec In Lab Camilla Carrera MD HEMATOLOGY ORDERABLE S [facility] [place] [address] * (ABNORMAL) BMP w/fasting Glucose (06/29/2019 2:57 AM EST) Glucose Fasting 116(H) 65 - 99 mg/dL [facility] Comment: ?Fasting* Glucose Interpretive Criteria [...] of Diabetes Mellitus, Position Statement from the [place] [employer]. ??Diabetes Care, Volume 33, Supplement 1, Jul 2009 Blood Urea Nitrogen 10 8 - 18 mg/dL [facility] Creatinine 0.82 0.70 - 1.20 mg/dL [facility] Sodium 144 135 - 145 mmol/L [facility] Potassium 4.2 3.5 - 5.0 mmol/L [facility] Comment: Please note: ??Patients with WBC >100,000 may have falsely elevated Potassium levels. ??For accurate Potassium quantification in these patients send serum separator tube (gold top) for subsequent determinations. ??Contact the Clinical Chemistry Laboratory if there are any questions. Chloride 107 98 - 107 mmol/L [facility] Carbon Dioxide 26 22 - 31 mmol/L [facility] Anion Gap 11 5 - 15 mmol/L [facility] Calcium 8.9 8.5 - 10.5 mg/dL [facility] Est Glomerular Filtration Rate 78 >=60 mL/min/1. 73 m?? [facility] Comment: The eGFR was calculated using the CKD-EPI equation. As with all creatinine based estimates of kidney function, eGFR values calculated with the CKD-EPI equation are not accurate in patients with acute kidney failure, extremes of body mass or the acutely ill. [email or web address] eGFR 91 >=60 mL/min/1. 73 m?? [facility] Comment: The eGFR was calculated using the CKD-EPI equation. As with all creatinine based estimates of kidney function, eGFR values calculated with the CKD-EPI equation are not accurate in patients with acute kidney failure, extremes of body mass or the acutely ill. [email or web address] Blood specimen (specimen) 06/29/2019 2:57 AM EST 06/29/2019 3:03 AM EST Narrative Resulting Agency Comment Spec In Lab Avila Medina MD CHEMISTRY ORDERABLES Performing Organization Address [facility]/ZIP Co de Phone Number [facility] [place] [address] * POCT Glucose (06/28/2019 9:57 PM EST) Glucose, POC 148 65 - 199 mg/dL [facility] Comment: Supplemental ranges: <140 mg/dL before meals <180 mg/dL all other times of the day Blood specimen (specimen) 06/28/2019 9:57 PM EST 06/28/2019 9:57 PM EST Avila Medina MD POINT OF CARE TEST O RDERABLES Performing Organization Address [facility]/ZIP Co de Phone Number [facility] [place] [address] * Creatinine Level Body Fluid YANDY Drain (06/28/2019 9:49 PM EST) Creatinine, Fluid 1.0 mg/dL [facility] Comment: No reference range is available for the specimen type submitted. ??The performance of this assay for the submitted type has not been validated and results should be interpreted accordingly and with regard to the patient's clinical status. [place], Fld Type YANDY Drain [facility] YANDY Drain 06/28/2019 9:49 PM EST 06/28/2019 10:09 PM EST Narrative Resulting Agency Comment Spec In Lab Avila Medina MD BODY FLUIDS AND STOO LS ORDERABLES Performing Organization Address [facility] de Phone Number [facility] [place] [address] * POCT Glucose (06/28/2019 4:13 PM EST) Glucose, POC 116 65 - 199 mg/dL [facility] Comment: Supplemental ranges: <140 mg/dL before meals <180 mg/dL all other times of the day Blood specimen (specimen) 06/28/2019 4:13 PM EST 06/28/2019 4:13 PM EST Avila Medina MD POINT OF CARE TEST O RDERABLES Performing Organization Address [facility] [facility] Co de Phone Number [facility] [place] [address] * (ABNORMAL) BMP w/fasting Glucose (06/28/2019 2:30 PM EST) Glucose Fasting 147(H) 65 - 99 mg/dL [facility] Comment: ?Fasting* Glucose Interpretive Criteria [...] of Diabetes Mellitus, Position Statement from the [place] [employer]. ??Diabetes Care, Volume 33, Supplement 1, Jul 2009 Blood Urea Nitrogen 10 8 - 18 mg/dL [facility] Creatinine 0.80 0.70 - 1.20 mg/dL [facility] Sodium 144 135 - 145 mmol/L [facility] Potassium 4.3 3.5 - 5.0 mmol/L [facility] Comment: Please note: ??Patients with WBC >100,000 may have falsely elevated Potassium levels. ??For accurate Potassium quantification in these patients send serum separator tube (gold top) for subsequent determinations. ??Contact the Clinical Chemistry Laboratory if there are any questions. Chloride 108(H) 98 - 107 mmol/L [facility] Carbon Dioxide 25 22 - 31 mmol/L [facility] Anion Gap 11 5 - 15 mmol/L [facility] Calcium 8.9 8.5 - 10.5 mg/dL [facility] Est Glomerular Filtration Rate 81 >=60 mL/min/1. 73 m?? [facility] Comment: The eGFR was calculated using the CKD-EPI equation. As with all creatinine based estimates of kidney function, eGFR values calculated with the CKD-EPI equation are not accurate in patients with acute kidney failure, extremes of body mass or the acutely ill. [email or web address]/[email or web address] eGFR 94 >=60 mL/min/1. 73 m?? [facility] Comment: The eGFR was calculated using the CKD-EPI equation. As with all creatinine based estimates of kidney function, eGFR values calculated with the CKD-EPI equation are not accurate in patients with acute kidney failure, extremes of body mass or the acutely ill. [email or web address] Blood specimen (specimen) 06/28/2019 2:30 PM EST 06/28/2019 2:59 PM EST Narrative Resulting Agency Comment Spec In Lab Avila Medina MD CHEMISTRY ORDERABLES [facility] [place] [address] * Hemoglobin and Hematocrit, blood (06/28/2019 2:30 PM EST) Hemoglobin 12.5 11.7 - 15.5 gm/dL [facility] Hematocrit 37.8 35.7 - 45.8 % [facility] Blood specimen (specimen) 06/28/2019 2:30 PM EST 06/28/2019 2:59 PM EST Narrative Resulting Agency Comment Spec In Lab Avila Medina MD HEMATOLOGY ORDERABLE S [facility] [place] [address] * POCT Glucose (06/28/2019 2:05 PM EST) Glucose, POC 133 65 - 199 mg/dL [facility] Comment: Supplemental ranges: <140 mg/dL before meals <180 mg/dL all other times of the day Blood specimen (specimen) 06/28/2019 2:05 PM EST 06/28/2019 2:05 PM EST Avila Medina MD POINT OF CARE TEST O RDLESLEY Performing Organization Address City/[facility]/ZIP Co de Phone Number [facility] [place] [address] * Specimen to Pathology (06/28/2019 12:59 PM EST) AP Specimen 06/28/2019 12:5 9 PM EST 06/28/2019 12:59 PM EST Narrative [facility] - 06/28/2019 12:59 PM EST Specimen requisition ordered. ??Separate Pathology report to follow Avila Medina MD PATHOLOGY/CYTOLOGY O RDERACELY Performing Organization Address City/[facility]/ZIP Co de Phone Number [facility] [place] [address] * Solid Tumor NGS Panel (06/28/2019 12:57 PM EST) Tissue specimen (specimen) 06/28/2019 12:57 PM EST 05/28/2020 1:28 PM EST Narrative Resulting Agency Comment Spec In Lab Avila Medina MD PATHOLOGY/CYTOLOGY O ULISES Performing Organization Address [facility]/State/ZIP Co de Phone Number [facility] [place] [address] * Surgical Pathology Report (06/28/2019 12:57 PM EST) Final Diagnosis [id number] ? Location: [facility]; [facility]; A The signing pathologist has (i) examined [...] Christine Pablo Verified: ??07/04/2019 ?Pathologist Performed at: ??-[facility] Dept. of Pathology, [place], [place] DISCUSSION Whole slide scan: [id number] CLINICAL INFORMATION Specimen Submitted: A - [...] Inking: Parenchymal margin inked black. Sections/Processi ng: Booster Pump Operator sections in 10 cassettes as follows: ?A1-A5: ??Tumor to closest margin ?A6: ??Tumor to fat ?A7-A8: ??Additional public utilities sales representative tumor ?A9: ??Lesion to normal kidney ?A10: ??Normal kidney ??diamante 07/04/2019 11:12 AM EST [facility] SPECIMEN FROM KIDNEY / Unknown 06/28/2019 12:57 PM EST 06/28/2019 12:57 PM EST Avila Medina MD PATHOLOGY/CYTOLOGY O RDERABLES [facility] [place] [address] * (ABNORMAL) BLOOD GAS 2 ARTERIAL (06/28/2019 11:13 AM EST) pH, Arterial 7.33(L) 7.35 - 7.45 [facility] PCO2, Arterial 51(H) 35 - 45 mmHg [facility] PO2, Arterial 198(H) 85 - 104 mmHg [facility] Bicarbonate, Arterial 26.8(H) 20.0 - 26.0 mmol/L [facility] Base Excess, Arterial 0.4 -3.0 - 3.0 mmol/L [facility] Hgb Blood Gas 13.4 11.7 - 15.5 gm/dL [facility] Oxyhemoglobin, Arterial 94.2 94.0 - 97.0 % [facility] Carboxyhemoglob in, Arterial 4.6 % [facility] Comment: Nonsmokers: 0.5-1.5% COHB Smokers: Variable, but usually less than 10% Toxic: 20-30% COHB Lethal: Greater than 60% COHB Methemoglobin, Arterial 0.3 <=1.5 % [facility] Na Whole Blood 140 135 - 145 mmol/L [facility] K Whole Blood 4.1 3.5 - 5.0 mmol/L [facility] Comment: Please note: Patients with WBC >100,000 may have falsely elevated Potassium levels. Contact the Clinical Chemistry Laboratory if there are any questions. ICa Whole Blood 1.18 1.15 - 1.33 mmol/L [facility] Comment: Note: ??Total bilirubin higher than 20 mg/dL may lead to falsely low ionized calcium. CL Whole Blood 108(H) 98 - 107 mmol/L [facility] Gluc Whole Bld 160 65 - 199 mg/dL [facility] Comment:Diabetes: >=200 mg/d L plus symptoms. Lactate WB 1.3 0.5 - 2.2 mmol/L [facility] FIO2 Art 56 % [facility] PF Ratio Art 354 [facility] Temp Art 35.3 Celsius [facility] Blood specimen (specimen) 06/28/2019 11:13 AM EST 06/28/2019 11:13 AM EST Avila Medina MD POINT OF CARE TEST O ULISES [facility] [place] [address] * POCT Glucose (06/28/2019 8:17 AM EST) Glucose, POC 146 65 - 199 mg/dL [facility] Comment: Supplemental ranges: <140 mg/dL before meals <180 mg/dL all other times of the day Blood specimen (specimen) 06/28/2019 8:17 AM EST 06/28/2019 8:17 AM EST Avila Medina MD POINT OF CARE TEST Junior MONTGOMERY [facility] [place] [address] documented in this encounter Visit Diagnoses Diagnosis [...] Provider: Christine Wu RN)1817 (Given - Provider: Cralota Rocha RN)2331 (Given - Provider: Nelson Tomlinson, VEDA) 0600 (Given - Provider: Nelson Tomlinson, VEDA)1239 (Given - Provider: Allison Sánchez RN)1740 (Given - Provider: Allison Sánchez RN)2340 (Given - Provider: Nelson Tomlinson, VEDA) 0531 [...] Nelson Tomlinson RN)1344 (Given - Provider: Allison Sánchez RN)2110 (Given - Provider: Nelson Tomlinson RN) 0532 (Given - Provider: Nelson Tomlinson RN)1429 (Given - Provider: Yue Moore RN) insulin lispro (HumaLOG) VIAL injection 0-6 [...] 0922 (Given - Provider: Yue Moore, VEDA) lidocaine (LIDODERM) 5 % patch 3 patch(Linked [...] Discontinued, Remove lidocaine 5 %(700 mg/patch) patch 2145 (Patch Removed - Provider: Nelson Tomlinson RN) 2145 (Patch Removed - Provider: Nelson Tomlinson RN) [...] Until Discontinued 2332 (Given - Provider: Nelson L Davi, RN - Comment: L/R neck & shoulders) 0811 (Given - Provider: Allison Sánchez RN)2013 (Given - Provider: Nelson Tomlinson, VEDA) 09 (Given - Provider: Yue Moore RN) metoprolol [...] RN) 1019 (Patch Applied - Provider: Yue Moore RN) [...] (dose and location) verified - Provider: Nelson L Davi, RN) 0900 (Patch (dose and location) verified [...] Routine 1013 (Given - Provider: Christine Wu RN)2139 (Given - Provider: Nelson Tomlinson RN) 08 (Given - Provider: Allison Sánchez RN)2011 (Given - Provider: Nelson Tomlinson RN) 0930 [...] shoulder pain.) 0243 (Given - Provider: Nelson Tomlinosn RN - Comment: R neck/shoulder pain.)1431 (Given [...] Tomlinson, VEDA) 1240 (Given - Provider: Allison Sánchez RN) [...] Routine documented in this encounter Care Teams Property Insurance Agent Relationship Specialty Start Date End Date Luis E Narayan MD [facility] [place] [address] [address] PCP - General Family Medicine 03/26/19 01/19/22 documented as of this encounter
--- OUTSIDE RECORDS SUMMARY | 2024-08-20 16:03 | XMS_ITS | Encounter Summary ---
[place] [address] Care Team Providers Care Emergency Registrar Name Role Phone Luis E Narayan MD Primary Care Provider Reason for Visit * Auth/Cert Specialty Diagnoses / Procedures Referred By Gonzalez t Referred To Contact Diagnoses Renal Mass Procedures PRO LAP, PARTIAL NEPHRECTOMY LAPAROSCOPY, PARTIAL NEPHRECTOMY, ROBOTIC ASSIST (WRVU 27.41) MODIFIER ROBOT,DAVINCI XI Referral ID Status Reason Start Date Expiration Date Visits Re quested Visits Authorized [id number] 1 1 Encounter Details Date Type Department Care Team (Late st Contact Info) Description 06/28/2019 8:34 AM EST Anesthesia [place] [address] Nathan Schmidt MD Anesthesia Record Procedure Summary Procedure Name Responsible [...] drain sponge 06/28/19 1216 by Tameka Duncan, RN (RETIRED) Peripheral IV Line - Single Lumen metacarpal vein (top of hand), right; eqlm-plx-jkvkqk catheter system; 18 gauge; Nathan Schmidt MD; ([place]); 06/29/19; 182306/28/19 1102 by 06/29/19 1824 by Carlota Rocha RN (RETIRED) Peripheral IV Line - Single Lumen 06/28/19; 0807; median cubital vein (antecubital fossa), left; lkak-xjj-aarwam catheter system; 20 gauge; Gerson Boston RN; [...] Christine Wu RN Arterial Line 06/28/19; 1018; [facility] hial artery, left; 20 gauge; Nathan Schmidt; [...] Procedure Summary Date: 06/28/19 Room / Location: [facility] MAIN OR Anesthesia Start: 833 Anesthesia Stop: 1358 Procedures: LAPAROSCOPY, PARTIAL NEPHRECTOMY, ROBOTIC ASSIST (WRVU 27.41) (Left Flank) MODIFIER ROBOT,DAVINCI XI (N/A ) Diagnosis: Renal mass (renal mass) Surgeon: Avila Medina MD Responsible Provider: Nathan Schmidt MD Anesthesia Type: general ASA Status: 3 All Anesthesia Providers: Anesthesiologist: Nathan Schmidt MD Boom Boss: Joni Jane MD Vitals Value Taken Time BP 118/57 06/28/2019 1:51 PM Temp Pulse 68 06/28/2019 2:00 PM Resp 22 06/28/2019 2:00 PM SpO2 99 % 06/28/2019 2:00 PM Pain Level Vitals shown include unvalidated device data. Patient Location: PACU/[facility] Level of Consciousness: Conscious but Sleepy [...] and mask, cap, sterile gloves, hand hygeine F-[id number]-acfsc 21 10 cm Ultrasound Guided: YES and [...] Bipolar affective disorder in remission Diagnosis in [facility] records, unconfirmed ??? Anxiety [...] TSH, etc. ??? 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 Atherosclerosis of enterprise coronary artery of enterprise [...] on CPAP, depression/anxiety/bipolar, HLD, HTN, CAD s/p [place] and 4 stents to LCx in 10/2007, [...] 1:00 PM EST Hospital En[place] [address] Roland Gooden MD [facility] [place] [address] 08/29/2024 1:00 PM EST - 08/29/2024 2:00 PM EST Surgery [place] [phone] Roland Gooden MD [facility] [place] [address] EGD, UPPER GI ENDOSCOPY (WRVU 2.09) 10/02/2024 1:00 PM EDT Office [place] [phone] Juanpablo Hernandez MD [facility] [place] [address] 10/21/2024 9:30 AM EDT Office Visit Internal Medicine at [place] [address] [place] [phone] Daryn Garrett MD [facility] [address] [facility] [address] 01/30/2025 1:30 PM EDT Laboratory Appointment Lab at [facility] Hematology Oncology [address] [place] [phone] 01/30/2025 3:[address] [place] [address] Arturo Cordero MD [facility] [place] [address] 01/30/2025 4:15 PM EDT Office Visit Hematology [place] [address] Arturo Cordero MD [facility] [address] [place] [address] Scheduled Procedures Name Priority Associated Diagnoses Date/Ti [...] and mask, cap, sterile gloves, hand hygeine I-rmdcz-zypzb 21 10 cm Ultrasound Guided: ??YES and [...] tolerated procedure without issue. Jak Crystal MD HEALTH INSURANCE SPECIALIST [facility] documented in this encounter Visit Diagnoses Not on filedocumented in this encounter Administered Medications Inactive Administered Medications - up to 3 most recent administrations Medication Order MAR Action Action Date Dose Rate Site cefTRIAXone (ROCEPHIN) 2 g vial attach to sodium chloride 0.9% 50 mL Mini-Bag Plus 2 g, Intravenous, TAPER MACHINE TO O.R., 1 dose, On Mon06/28/19 at [...] subcutaneous injection 5,000 Units 5,000 Units, Subcutaneous, TAPER MACHINE TO O.R., 1 dose, On Mon06/28/19 at [...] documented in this encounter Care Teams Emergency Registrar Relationship Specialty Start Date End Date Luis E Narayan MD [facility] [address] [place] [address] PCP - General Family Medicine 03/26/19 01/19/22 documented as of this encounter
--- OUTSIDE RECORDS SUMMARY | 2024-08-20 16:03 | XMS_ITS | Encounter Summary ---
Author Organization [facility] Address [facility] [place] [address] Care Team Providers Care Data Technical Lead Name Role Phone Luis E Narayan MD Primary Care Provider Encounter Details Date Type Department Care Team (Latest Contact Info) Description 06/27/2019 1:06 PM EST - 06/27/2019 11:59 PM [facility] Hospital Encounter XRay at [address] [place] [address] Avila Medina MD [facility] [place] [address] Renal mass Discharge Disposition: Home Social History [...] 04/09/2019 06/22/2020 fluticasone propionate (FLONASE) 50 mcg/actuation [place], Suspension 50 sprays by Each Nare route [...] 1:00 PM EST Hospital En[place] [address] Roland Gooden MD [facility] [place] [address] 08/29/2024 1:00 PM EST - 08/29/2024 2:00 PM EST [place] [phone] Roland Gooden MD [facility] [place] [address] EGD, UPPER GI ENDOSCOPY (WRVU 2.09) 10/02/2024 1:00 PM EDT Office [place] [phone] Juanpablo Hernandez MD [facility] [place] [address] 10/21/2024 9:30 AM EDT Office Visit Internal Medicine at [address] [phone] Daryn Garrett MD [facility] [address] [facility] [address] 01/30/2025 1:30 PM EDT Laboratory Appointment Lab at [facility] Hematology Oncology [address] [place] [phone] 01/30/2025 3:[address] [place] [place] [address] Arturo Cordero MD [facility] DR [place] [address] 01/30/2025 4:15 PM EDT Office Visit Hematology [place] [address] Arturo Cordero MD [facility] DR [place] [address] Scheduled Procedures Name Priority Associated Diagnoses Date/Ti [...] syndrome documented in this encounter Care Teams Data Technical Lead Relationship Specialty Start Date End Date Luis E Narayan MD [facility] [place] [address] PCP - General Family Medicine 03/26/19 01/19/22 documented as of this encounter
--- OUTSIDE RECORDS SUMMARY | 2024-08-20 16:03 | XMS_ITS | Encounter Summary ---
Author Organization [facility] [place] [address] Care Team Providers Care Cloth Finisher Name Role Phone Luis E Narayan MD Primary Care Provider Reason for Referral * Diagnostic Test (Routine) - Closed Specialty Diagnoses / Procedures Referred By Gonzalez kumari Referred To Contact Radiology Diagnoses Renal cancer, left Procedures CT Abdomen wwo Contrast Josseline Machado MD [facility] [place] [address] [facility] [place] [address] Referral ID Status Reason Start Date Expiration Date V isits Requested Visits Authorized [id number] Closed Specialty Service Requested 12/30/2019 06/27/2020 1 1 Reason for Visit * Reason Comments Follow-up Encounter Details Date Type Department Care Team (Late st Contact Info) Description 07/17/2019 10:20 AM EST [place] [address] Josseline Machado MD [facility] [place] [address] Renal cancer, left (Primary Dx) [...] Left robot assited partial nephrectomy for a [id number] Grade 3 clear cell cancer. All surgical margins were negative. Warm ischemia time was 16 minutes 45 seconds. 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 - Margins negative for carcinoma. - See synoptic report for additional details and staging. Page 1 of 2 Name: ALIZE MANJARREZ Report ID: [id number] The signing pathologist has (i) examined the relevant preparation(s) for the specimen(s); and rendered or confirmed the diagnosis(es). Pathology Report Collected: 06/28/2019 12:57 Received: 06/28/2019 13:20 DIAGNOSIS Electronically signed by: Christine Pierce MD Verified: 07/04/2019 Pathologist Performed at: -[facility] Dept. of Pathology, [place], [place] Following the surgery she did well [...] Cr 0.84, eGFR 76 Xrays: None Imp: [id number] Grade 3 Clear Cell renal cancer sp [...] 1:00 PM EST Hospital En[place] [address] Roland Gooden MD [facility] [place] [address] 08/29/2024 1:00 PM EST - 08/29/2024 2:00 PM EST [place] [address] Roland Gooden MD [facility] [place] [address] EGD, UPPER GI ENDOSCOPY (WRVU 2.09) 10/02/2024 1:00 PM EDT Office [place] [phone] Juanpablo Hernandez MD [facility] [place] [address] 10/21/2024 9:30 AM EDT Office Visit Internal Medicine at [facility] [address] [place] [address] Daryn Garrett MD [facility] [address] [place] [address] 01/30/2025 1:30 PM EDT Laboratory Appointment Lab at [facility] Hematology Oncology [address] [place] [phone] 01/30/2025 3:[address] [place] [phone] Arturo Cordero MD [facility] [place] [address] 01/30/2025 4:15 PM EDT Office Visit Hematology [place] [phone] Arturo Cordero MD [facility] [place] [address] Scheduled Orders Name Type Priority Associated Diagnoses [...] ? Electronically signed by: Shea Larose MD, [facility] ([phone]), at 01/13/2020 12:45 PM Narrative 01/13/2020 12:45 [...] below. Electronically signed by: Shea Larose MD, [facility]([phone]), at 01/13/2020 12:45 PM Josseline Machado MD [facility] CT ORDERABLES * XR Chest PA & [...] below. ? Electronically signed by: Nakia Goetz [facility] ([phone]), at 01/13/2020 11:12 AM Narrative 01/13/2020 11:12 [...] number below. Electronically signed by: Nakia Goetz [facility]([phone]), at 01/13/2020 11:12 AM Josseline Machado MD IMG DX ORDERABLES documented in this encounter Visit Diagnoses Diagnosis Renal cancer, left- Primary Renal cancer, left Renal cancer, left Irritable bowel syndrome with constipation Irritable bowel syndrome documented in this encounter Care Teams Cloth Finisher Relationship Specialty Start Date End Date Luis E Narayan MD [facility] [address] [place] [address] PCP - General Family Medicine 03/26/19 01/19/22 documented as of this encounter
--- OUTSIDE RECORDS SUMMARY | 2024-08-20 16:04 | XMS_ITS | Encounter Summary ---
Author Organization [facility] [place] [address] Care Team Providers Care Wired Sweatband Cutter Name Role Phone Luis E Narayan MD Primary Care Provider Encounter Details Date Type Department Care Team (Latest Contact Info) Description 05/02/2019 10:55 AM EDT Laboratory Appointment Lab [place] [phone] Cognitive and behavioral changes Social History Tobacco [...] 1:00 PM EST Hospital En[place] [phone] Roland Gooden MD [facility] [place] [address] 08/29/2024 1:00 PM EST - 08/29/2024 2:00 PM EST [place] [phone] Roland Gooden MD [facility] [place] [address] EGD, UPPER GI ENDOSCOPY (WRVU 2.09) 10/02/2024 1:00 PM EDT Office Visit Ophthalmology at [place] [phone] Juanpablo Hernandez MD [facility] [place] [address] 10/21/2024 9:30 AM EDT Office Visit Internal Medicine at [address] [phone] Daryn Garrett MD [facility] DR LILI [place] [address] 01/30/2025 1:30 PM EDT Laboratory Appointment Lab at [facility] Hematology Oncology [address] [place] [phone] 01/30/2025 3:[address] Scan at [place] [phone] Arturo Cordero MD [facility] [place] [address] 01/30/2025 4:15 PM EDT Office Visit Hematology [place] [phone] Arturo Cordero MD [facility] [place] [address] Scheduled Procedures Name Priority Associated Diagnoses Date/Ti me EGD, UPPER GI ENDOSCOPY (WRVU 2.09) Irritable bowel syndrome with constipation 08/29/2024 1:00 PM EST COLONOSCOPY, DIAGNOSTIC (WRVU 3.26) Irritable bowel syndrome with constipation 08/29/2024 1:00 PM EST documented as of this encounter Procedures Procedure Name Priority Date/Time Associated Diagnosis Comments HC H THIAMIN LVL(VITAMIN B1) WB-ARIAS Routine 05/02/2019 11:15 [...] Pineda MD CHEMISTRY ORDERABLES [facility] [place] [address] * Vitamin B1, whole blood (05/02/2019 11:15 AM EDT) Vit B1 Lvl Wb (NOVEMBER) 173 70 - 180 nmol/L [facility] Comment: ADDITIONAL INFORMATION This test was developed and its performance characteristics determined by [facility] in a manner consistent with CLIA requirements. This test has not been cleared or approved by the U.S. Food and Drug Administration. Test Performed by: [facility] [address] [place] [address] Roller Picker: Jose G Jefferson M.D. Ph.D.; CLIA# [id number] Blood specimen (specimen) 05/02/2019 11:15 AM EDT 05/02/2019 1:43 PM EDT Narrative Resulting Agency Comment Spec In Lab Sumit Pineda MD LAB SEND OUT ORDERAB LES [facility] [place] [address] documented in this encounter Visit Diagnoses Diagnosis Cognitive and behavioral changes Other signs and symptoms involving cognition Irritable bowel syndrome with constipation Irritable bowel syndrome documented in this encounter Care Teams Wired Sweatband Cutter Relationship Specialty Start Date End Date Luis E Narayan MD [facility] [address] [place] [address] PCP - General Family Medicine 03/26/19 01/19/22 documented as of this encounter
--- OUTSIDE RECORDS SUMMARY | 2024-08-20 16:04 | XMS_ITS | Encounter Summary ---
Author Organization [facility] [place] [address] Care Team Providers Care Tea Plantation Worker Name Role Phone Luis E Narayan MD Primary Care Provider Reason for Referral * Diagnostic Test (Routine) - Closed Specialty Diagnoses / Procedures Referred By Contac t Referred To Contact Radiology Diagnoses Adrenal mass, left Renal mass, left Procedures MRI Abdomen wwo Contrast (Generic) Avila Medina MD [facility] [place] [address] [place] [address] Referral ID Status Reason Start Date Expiration Date V isits Requested Visits Authorized [id number] Closed Specialty Service Requested 04/24/2019 06/22/2019 1 1 Reason for Visit * Consultation (Urgent) - Closed Specialty Diagnoses / Procedures Referred By Contac t Referred To Contact Urology Diagnoses Renal mass Elpidio Pinedo IV, MD [facility] [place] [address] [facility] [place] [address] Referral ID Status Reason Start Date Expiration Date V isits Requested Visits Authorized [id number] Closed Consult, Test & Treat 03/26/2019 03/25/2020 1 1 Encounter Details Date Type Department Care Team (Late st Contact Info) Description 04/11/2019 9:50 AM EDT Office Visit Hematology [place] [address] Avila Medina MD [facility] [place] [address] Adrenal mass, left; Renal mass, left Social [...] being w/u for a neurological condition ASCVD [place] with stents 11 years ago Type II [...] #1: Cystic renal mass suspicious for a [id number] renal cancer but incomplete evaluation #2: Positive [...] 1:00 PM EST Hospital Encounter [place] [address] Roland Gooden MD [facility] [place] [address] 08/29/2024 1:00 PM EST - 08/29/2024 2:00 PM EST Surgery [place] [phone] Roland Gooden MD [facility] [place] [address] EGD, UPPER GI ENDOSCOPY (WRVU 2.09) 10/02/2024 1:00 PM EDT Office [place] [address] Juanpablo Hernandez MD [facility] [place] [address] 10/21/2024 9:30 AM EDT Office Visit Internal Medicine at [facility] [address] [place] [phone] Daryn Garrett MD [facility] DR LILI [place] [address] 01/30/2025 1:30 PM EDT Laboratory Appointment Lab at [facility] Hematology Oncology [address] [place] [phone] 01/30/2025 3:[address] [place] [phone] Arturo Cordero MD [facility] HEMATOLOGY [place] [address] 01/30/2025 4:15 PM EDT Office Visit Hematology [place] [phone] Arturo Cordero MD [facility] HEMATOLOGY [place] [address] Scheduled Procedures Name Priority Associated Diagnoses Date/Ti [...] below. ? Electronically signed by: HIMANSHU Cuevas [facility] ([phone]), at 05/03/2019 9:33 AM Narrative 05/03/2019 9:33 [...] Normal. Procedure Note Juanpablo Chris MD - 10/25/2019 EXAMINATION: MRI ABDOMEN WWO CONTRAST (GENERIC) CLINICAL [...] syndrome documented in this encounter Care Teams Tea Plantation Worker Relationship Specialty Start Date End Date Luis E Narayan MD [facility] [address] [place] [address] PCP - General Family Medicine 03/26/19 01/19/22 documented as of this encounter
--- OUTSIDE RECORDS SUMMARY | 2024-08-20 16:04 | XMS_ITS | Encounter Summary ---
[place] [address] Care Team Providers Care Judge Name Role Phone Luis E Narayan MD Primary Care Provider Encounter Details Date Type Department Care Team (Late st Contact Info) Description 04/15/2019 [place] [phone] Ru Leon, RN Social History [...] with Alize and she will got to [facility] for Metabolic lab testing. Orders faxed, dexamethazone ( 1 mg) Prescribed, and instructions mailed. All questions addressed at this time she will call withany further questions or concerns. documented in this encounter Plan of Treatment Upcoming Encounters Date Type Department Care Team (Latest Contact Info) Description 08/29/2024 1:00 PM [facility] Hospital En[place] [phone] Roland Gooden MD [facility] [place] [address] 08/29/2024 1:00 PM EST - 08/29/2024 2:00 PM EST Surgery Gastroenterology at [place] [phone] Roland Gooden MD [facility] [place] [address] EGD, UPPER GI ENDOSCOPY (WRVU 2.09) 10/02/2024 1:00 PM EDT Office Visit Ophthalmology at [place] [phone] Juanpablo Hernandez MD [facility] [place] [address] 10/21/2024 9:30 AM EDT Office Visit Internal Medicine at [address] [phone] Daryn Garrett MD [facility] DR LILI W[place]ER [place] [address] 01/30/2025 1:30 PM EDT Laboratory Appointment Lab at [facility] Hematology Oncology [address] [place], [place] [phone] 01/30/2025 3:[address] [place] [phone] Arturo Cordero MD [facility] HEMATOLOGY [place] [address] 01/30/2025 4:15 PM EDT Office Visit Hematology [place] [phone] Arturo Cordero MD [facility] HEMATOLOGY [place] [address] Scheduled Procedures Name Priority Associated Diagnoses Date/Ti me EGD, UPPER GI ENDOSCOPY (WRVU 2.09) Irritable bowel syndrome with constipation 08/29/2024 1:00 PM EST COLONOSCOPY, DIAGNOSTIC (WRVU 3.26) Irritable bowel syndrome with constipation 08/29/2024 1:00 PM EST documented as of this encounter Visit Diagnoses Not on filedocumented in this encounter Care Teams Judge Relationship Specialty Start Date End Date Luis E Narayan MD [facility] [address] [place] [address] PCP - General Family Medicine 03/26/19 01/19/22 documented as of this encounter
--- OUTSIDE RECORDS SUMMARY | 2024-08-20 16:04 | XMS_ITS | Encounter Summary ---
Author Organization [facility] [place] [address] Care Team Providers Care Tank Bottom Assembler Name Role Phone Luis E Narayan MD Primary Care Provider [phone]- [phone] Reason for Visit * Consultation (Routine) - Closed Specialty Diagnoses / Procedures Referred By Gonzalez kumari Referred To Contact Primary Care Diagnoses Type 2 diabetes mellitus with hyperglycemia, without long-term current use of insulin Luis E Narayan MD [facility] DR LILI WALKER[place] [address] [facility] Family Medicine [facility] [place] [address] Referral ID Status Reason Start Date Expiration Date V isits Requested Visits Authorized [id number] Closed Specialty Service Requested 05/29/2019 05/28/2020 1 1 Encounter Details Date Type Department Care Team (Late st Contact Info) Description 06/04/2019 1:00 PM EST Telephone [place] [phone] Julia Low, [facility] Social History Tobacco Use Types [...] EST Hospital Encounter Gastroenterology at [place] [phone] Roland Gooden MD [facility] [place] [address] 08/29/2024 1:00 PM EST - 08/29/2024 2:00 PM EST Surgery [place] [phone] Roland Gooden MD [facility] [place] [address] EGD, UPPER GI ENDOSCOPY (WRVU 2.09) 10/02/2024 1:00 PM EDT Office [place] [phone] Juanpablo Hernandez MD [facility] [place] [address] 10/21/2024 9:30 AM EDT Office Visit Internal Medicine at [address] [phone] Daryn Garrett MD [facility] DR LILI WALKER [place] [address] 01/30/2025 1:30 PM EDT Laboratory Appointment Lab at [facility] Hematology Oncology [address] [place] [phone] 01/30/2025 3:[address] [place] [phone] Arturo Cordero MD [facility] HEMATOLOGY [place] [address] 01/30/2025 4:15 PM EDT Office Visit Hematology [place] [address] Arturo Cordero MD [facility] HEMATOLOGY [place] [address] Scheduled Procedures Name Priority Associated Diagnoses Date/Ti me EGD, UPPER GI ENDOSCOPY (WRVU 2.09) Irritable bowel syndrome with constipation 08/29/2024 1:00 PM EST COLONOSCOPY, DIAGNOSTIC (WRVU 3.26) Irritable bowel syndrome with constipation 08/29/2024 1:00 PM EST Scheduled Referrals Name Type Priority Associated Diagnoses Orde r Schedule Referral to [facility] (Primary Care Use Only) Outpatient Referral Routine Type 2 diabetes mellitus without long-term current use of insulin Ordered: 05/29/2019 documented as of this encounter Visit Diagnoses Not on filedocumented in this encounter Care Teams Tank Bottom Assembler Relationship Specialty Start Date End Date Luis E Narayan MD [facility] [address] [place] [address] PCP - General Family Medicine 03/26/19 01/19/22 documented as of this encounter
--- OUTSIDE RECORDS SUMMARY | 2024-08-20 16:04 | XMS_ITS | Encounter Summary ---
Author Organization [facility] [address] Care Team Providers Care Cafeteria Assistant Name Role Phone Luis E Narayan MD Primary Care Provider [phone]- [phone] Reason for Visit * Reason Onset Date Comments Follow-up Renal Mass 05/27/2019 Encounter Details Date Type Department Care Team (Late st Contact Info) Description 05/27/2019 3:20 PM EST Office [place] [address] Avila Medina MD [facility] [place] [address] Renal mass (Primary Dx) Social History Tobacco [...] or you can obtain it from the [facility] Same day program on the day of your preoperative visit. Please take only clear liquids by mouth from noon the day before surgery. Please take nothing by mouth from 2 hours before the time you have been told to report to the hospital. 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 but incomplete evaluation #2: Positive [...] being w/u for a neurological condition ASCVD [place] with stents 11 years ago Type II [...] Cystic renal mass suspicious (Bosniak 3-4)for a [id number] renal cancer but incomplete evaluation #2: Positive [...] EST Hospital Encounter Gastroenterology at [place] [phone] Roland Gooden MD [facility] [place] [address] 08/29/2024 1:00 PM EST - 08/29/2024 2:00 PM EST Surgery Gastroenterology at [place] [phone] Roland Gooden MD [facility] [place] [address] EGD, UPPER GI ENDOSCOPY (WRVU 2.09) 10/02/2024 1:00 PM EDT Office Visit Ophthalmology at [place] [phone] Juanpablo Hernandez MD [facility] [place] [address] 10/21/2024 9:30 AM EDT Office Visit Internal Medicine at [facility] [address] [place] [address] Daryn Garrett MD [facility] DR LILI [place] [address] 01/30/2025 1:30 PM EDT Laboratory Appointment Lab at [facility] Hematology Oncology [address] [place] [phone] 01/30/2025 3:[address] [place] [phone] Arturo Cordero MD [facility] DR [place] [address] 01/30/2025 4:15 PM EDT Office Visit Hematology [place] [address] Arturo Cordero MD [facility] DR [place] [address] Scheduled Procedures Name Priority Associated Diagnoses Date/Ti [...] tract infection, submit a new specimen. (A) [facility] Urine specimen obtained by clean catch procedure (specimen) 06/21/2019 12:06 PM EST 06/21/2019 12:28 PM EST Narrative Resulting Agency Comment Spec In Lab Avila Medina MD MICROBIOLOGY - GENER AL ORDERABLES [facility] [place] [address] * (ABNORMAL) Comprehensive metabolic panel (non-fasting) (06/21/2019 12:02 PM EST) Glucose 205(H) 65 - 199 mg/dL [facility] Comment:Diabetes: >=200 mg/d L plus symptoms Blood Urea Nitrogen 22(H) 8 - 18 mg/dL [facility] Creatinine 0.90 0.70 - 1.20 mg/dL [facility] Sodium 138 135 - 145 mmol/L [facility] Potassium 4.2 3.5 - 5.0 mmol/L [facility] Comment: Please note: ??Patients with WBC >100,000 may have falsely elevated Potassium levels. ??For accurate Potassium quantification in these patients send serum separator tube (gold top) for subsequent determinations. ??Contact the Clinical Chemistry Laboratory if there are any questions. Chloride 100 98 - 107 mmol/L [facility] Carbon Dioxide 27 22 - 31 mmol/L [facility] Anion Gap 11 5 - 15 mmol/L [facility] Calcium 9.6 8.5 - 10.5 mg/dL [facility] Protein, Total 7.1 6.1 - 8.0 gm/dL [facility] Albumin 4.1 3.2 - 5.2 gm/dL [facility] Aspartate Aminotransferase 34(H) 0 - 30 unit/L [facility] Alanine Aminotransferase 31(H) 0 - 30 unit/L [facility] Alkaline Phosphatase 86 35 - 105 unit/L [facility] Bilirubin, Total 0.3 0.2 - 1.3 mg/dL [facility] Est Glomerular Filtration Rate 70 >=60 mL/min/1. 73 m?? [facility] Comment: The eGFR was calculated using the CKD-EPI equation. As with all creatinine based estimates of kidney function, eGFR values calculated with the CKD-EPI equation are not accurate in patients with acute kidney failure, extremes of body mass or the acutely ill. [email or web address] eGFR 81 >=60 mL/min/1. 73 m?? [facility] Comment: The eGFR was calculated using the CKD-EPI equation. As with all creatinine based estimates of kidney function, eGFR values calculated with the CKD-EPI equation are not accurate in patients with acute kidney failure, extremes of body mass or the acutely ill. [email or web address]/[facility]nkf Blood specimen (specimen) 06/21/2019 12:02 PM EST 06/21/2019 12:12 PM EST Narrative Resulting Agency Comment Spec In Lab Avila Medina MD CHEMISTRY ORDERABLES [facility] [place] [address] documented in this encounter Visit Diagnoses Diagnosis Renal mass- Primary Unspecified disorder of kidney and ureter Renal mass Unspecified disorder of kidney and ureter Irritable bowel syndrome with constipation Irritable bowel syndrome documented in this encounter Care Teams Cafeteria Assistant Relationship Specialty Start Date End Date Luis E Narayan MD [facility] DR LILI [place] [address] PCP - General Family Medicine 03/26/19 01/19/22 documented as of this encounter
--- OUTSIDE RECORDS SUMMARY | 2024-08-20 16:04 | XMS_ITS | Encounter Summary ---
Author Organization [facility] [place] [place] [address] Care Team Providers Care Military Source Operations Specialist Name Role Phone Luis E Narayan MD Primary Care Provider Reason for Referral * Consultation (Routine) - Specialty Diagnoses / Procedures Referred By Gonzalez kumari Referred To Contact Sleep Center Diagnoses TITO on CPAP Procedures PRG POLYSOM 6+ YRS SLEEP W 4+ ADDL ABHILASH Bonny Justin MD [address] [place] [address] [facility] Sleep Medicine [address] [place] [address] Referral ID Status Reason Start Date Expiration Date Visits Requested Visits Authorized [id number] Specialty Service Requested 04/09/2019 04/08/2020 1 1 Reason for Visit * Reason Comments Cognitive Decline NEW PATIENT Encounter Details Date Type Department Care Team (Late st Contact Info) Description 04/09/2019 3:00 PM EDT Office Visit Family Medicine at [facility] [address] [place] [address] Bonny Emanuel MD [address] [place] [address] Immunization due (Primary Dx); Altered mental status, unspecified altered mental status type; COPD, moderate; Atherosclerosis 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 She does accurately report that she had had days of persistent insomnia, eventually admitted for [facility] with disorientation, delirium, inappropriate speech. 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 50+ pack/ yr hx No alcohol One daughter who is a positive support Medications 04/09/19 7448 Medication Sig Taking? melatonin 5 mg Tablet [...] daily. Yes fluticasone propionate (FLONASE) 50 mcg/actuation [place], Suspension 50 sprays by Each Nare route [...] Symbicort PEFR 350 today 3. Atherosclerosis of [place] coronary artery of [place] heart with angina pectoris No evidence for unstable angina Simvastatin, metoprolol,ASA - Comprehensive metabolic panel (non-fasting) 4. Immunization due Interested/ agreeble to all today - FluLaval Quadrivalent vaccine, Preservative Free 3YRS+ - PNEUMOCOCCAL CONJUGATE VACCINE 13-VALENT - Tdap vaccine greater than or equal to 7yo IM 5. Other polyneuropathy Likely associated with T2DM, recurrent need for steroids - TSH [place] - Vitamin B12 - Methylmalonic acid, serum [...] 1:00 PM EST Hospital Encounter [place] [phone] Roland Gooden MD [facility] [place] [address] 08/29/2024 1:00 PM EST - 08/29/2024 2:00 PM EST Surgery [place] [phone] Roland Gooden MD [facility] [place] [address] EGD, UPPER GI ENDOSCOPY (WRVU 2.09) 10/02/2024 1:00 PM EDT Office [place] [phone] Juanpablo Hernandez MD [facility] [place] [address] 10/21/2024 9:30 AM EDT Office Visit Internal Medicine at [address] [phone] Daryn Garrett MD [facility] DR LILI AZEVEDO - PRIMARY CARE [place], [place] [phone] 01/30/2025 1:30 PM EDT Laboratory Appointment Lab at [facility] Hematology Oncology [address] [place] [phone] 01/30/2025 3:[address] [place] [address] Arturo Cordero MD [facility] DR HEMATOLOGY [place] [address] 01/30/2025 4:15 PM EDT Office Visit Hematology [place] [address] Arturo Cordero MD [facility] HEMATOLOGY [place] [address] Scheduled Procedures Name Priority Associated Diagnoses Date/Ti [...] Routine 04/09/2019 5:02 PM EDT Atherosclerosis of [place] coronary artery of [place] heart with angina pectoris documented in this encounter Results * TSH [place] (04/09/2019 5:02 PM EDT) Thyroid Stimulating Hormone 3.57 0.27 - 4.20 mcIU/mL [facility] Blood specimen (specimen) 04/09/2019 5:02 PM EDT 04/09/2019 6:50 PM EDT Narrative Resulting Agency Comment Spec In Lab Bonny Emanuel MD CHEMISTRY ORDERABLES [facility] [place] [address] * Comprehensive metabolic panel (non-fasting) (04/09/2019 5:02 [...] of body mass or the acutely ill. http://[employer]/[facility] eGFR 92 >=60 mL/min/1. 73 m?? [facility] Comment: The eGFR was calculated using the CKD-EPI equation. As with all creatinine based estimates of kidney function, eGFR values calculated with the CKD-EPI equation are not accurate in patients with acute kidney failure, extremes of body mass or the acutely ill. http://[employer]/[facility]nkf Blood specimen (specimen) 04/09/2019 5:02 PM EDT 04/09/2019 6:50 PM EDT Narrative Resulting Agency Comment Spec In Lab Bonny Emanuel MD CHEMISTRY ORDERABLES Performing Organization Address City/[facility]/ZIP Co de Phone Number [facility] [place] [address] * Vitamin B12 (04/09/2019 5:02 PM EDT) Vitamin B12 820 232 - 1,245 pg/mL [facility] Blood specimen (specimen) 04/09/2019 5:02 PM EDT 04/09/2019 6:50 PM EDT Narrative Resulting Agency Comment Spec In Lab Bonny Emanuel MD CHEMISTRY ORDERABLES Performing Organization Address [facility] Co de Phone Number [facility] [place] [address] * Methylmalonic acid, serum (04/09/2019 5:02 PM EDT) Methylmalonic Acid (NOVEMBER) 0.20 <=0.40 nmol/mL [facility] Comment: ADDITIONAL INFORMATION This test was developed and its performance characteristics determined by [facility] in a manner consistent with CLIA requirements. This test has not been cleared or approved by the U.S. Food and Drug Administration. Test Performed by: [facility] - [address] [address] Subscription Agent: Jose G Jefferson M.D. Ph.D.; CLIA# [id number] Blood specimen (specimen) 04/09/2019 5:02 PM EDT 04/10/2019 8:35 AM EDT Narrative Resulting Agency Comment Spec In Lab Bonny Emanuel MD LAB SEND OUT ORDERAB LES [facility] [place] [address] documented in this encounter Visit Diagnoses Diagnosis Immunization due- Primary Need for prophylactic vaccination and inoculation against unspecified single disease Altered mental status, unspecified altered mental status type COPD, moderate Chronic airway obstruction, not elsewhere classified Atherosclerosis of [place] coronary artery of [place] heart with angina pectoris Other polyneuropathy TITO on CPAP Obstructive sleep apnea (adult) (pediatric) Acute recurrent maxillary sinusitis Acute maxillary sinusitis Type 2 diabetes mellitus without complication, without long-term current use of insulin Irritable bowel syndrome with constipation Irritable bowel syndrome documented in this encounter Care Teams Military Source Operations Specialist Relationship Specialty Start Date End Date Luis E Narayan MD [facility] DR LILI AZEVEDO-[place] [address] PCP - General Family Medicine 03/26/19 01/19/22 documented as of this encounter
--- OUTSIDE RECORDS SUMMARY | 2024-08-20 16:04 | XMS_ITS | Encounter Summary ---
Author Organization [facility] Address [facility] [place] [address] Care Team Providers Care Blurb Writer Name Role Phone Luis E Narayan MD Primary Care Provider [phone] Encounter Details Date Type Department Care Team (Late st Contact Info) Description 04/12/2019 [place] [address] Avila Medina MD [facility] [place] [address] Social History Tobacco Use Types Packs/Day Years [...] (Latest Contact Info) Description 08/29/2024 1:00 PM [facility] Hospital Encounter Gastroenterology at [place] [phone] Roland Gooden MD [facility] [place] [address] 08/29/2024 1:00 PM EST - 08/29/2024 2:00 PM EST Surgery Gastroenterology at [place] [phone] Roland Gooden MD [facility] [place] [address] EGD, UPPER GI ENDOSCOPY (WRVU 2.09) 10/02/2024 1:00 PM EDT Office Visit Ophthalmology at [place] [phone] Juanpablo Hernandez MD [facility] [place] [address] 10/21/2024 9:30 AM EDT Office Visit Internal Medicine at [address] [phone] Daryn Garrett MD [facility] DR LILI [place] [address] 01/30/2025 1:30 PM EDT Laboratory Appointment Lab at [facility] Hematology Oncology [address] [place] [phone] 01/30/2025 3:[address] [place] [phone] Arturo Cordero MD [facility] [place] [address] 01/30/2025 4:15 PM EDT Office Visit Hematology [place] [address] Arturo Cordero MD [facility] [place] [address] Scheduled Procedures Name Priority Associated Diagnoses Date/Ti me EGD, UPPER GI ENDOSCOPY (WRVU 2.09) Irritable bowel syndrome with constipation 08/29/2024 1:00 PM EST COLONOSCOPY, DIAGNOSTIC (WRVU 3.26) Irritable bowel syndrome with constipation 08/29/2024 1:00 PM EST documented as of this encounter Visit Diagnoses Not on filedocumented in this encounter Care Teams Blurb Writer Relationship Specialty Start Date End Date Luis E Narayan MD [facility] [address] [place] [address] PCP - General Family Medicine 03/26/19 01/19/22 documented as of this encounter
--- OUTSIDE RECORDS SUMMARY | 2024-08-20 16:04 | XMS_ITS | Encounter Summary ---
Author Organization [facility] [place] [address] Care Team Providers Care Chart Clerk Name Role Phone Luis E Narayan MD Primary Care Provider [phone] Reason for Referral * Psychiatric (Routine) - Specialty Diagnoses / Procedures Referred By Gonzalez kumari Referred To Contact Psychiatry Diagnoses Cognitive and behavioral changes Procedures PRO NEUROPSYCHOLOGICAL TEST EVAL PHYS/QHP 1ST HOUR PRO NEUROPSYCHOLOGICAL TEST EVAL PHYS/QHP EA ADDL HR TC PSYCL/NRPSYCL RAW SAMPLER 2+ TEST 1ST 30 MIN TC PSYCL/NRPSYCL RAW SAMPLER 2+ TEST EA ADDL 30 MIN Amy Aguiar MD [facility] [place] [address] [facility] [address] [place] [address] Referral ID Status Reason Start Date Expiration Date V isits Requested Visits Authorized [id number] Consult, Test & Treat 05/02/2019 05/01/2021 1 1 Reason for Visit * Consultation (Urgent) - Closed Specialty Diagnoses / Procedures Referred By Gonzalez kumari Referred To Contact Neurology Diagnoses Generalized weakness Elpidio Pinedo IV, MD [facility] [place] [address] [facility] [address] [place] [phone] Referral ID Status Reason Start Date Expiration Date V isits Requested Visits Authorized [id number] Closed Consult, Test & Treat 03/26/2019 03/25/2020 1 1 Encounter Details Date Type Department Care Team (Late st Contact Info) Description 05/02/2019 9:00 AM EDT Procedure [place] [phone] Sumit Pineda MD [facility] [place] [address] Amy Aguiar MD [facility] [place] [address] Cognitive and behavioral changes Social History Tobacco [...] breakdown due to steroids. Patient states she [facility] stop steroids and gave her breathing treatments. 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 She states her [...] Medical History: Diagnosis Date ??? Atherosclerosis of [place] coronary artery of [place] heart with angina pectoris 10/09/2007 History of [...] 3 ??? fluticasone propionate (FLONASE) 50 mcg/actuation [place], Suspension 50 sprays by Each Nare route [...] and lateral aspects of feet Vibration via [email or web address] tuning fork (1-8): reduced at big toes [...] Edwin Aguiar MD Clinical Neurophysiology Fellow Pager: [phone] 05/02/2019 CC: Luis E Narayan MD, Luis [...] 1:00 PM EST Hospital Encounter [place] [address] Roland Gooden MD [facility] [place] [address] 08/29/2024 1:00 PM EST - 08/29/2024 2:00 PM EST Surgery [place] [address] Roland Gooden MD [facility] [place] [address] EGD, UPPER GI ENDOSCOPY (WRVU 2.09) 10/02/2024 1:00 PM EDT Office Visit Ophthalmology at [place] [phone] Juanpablo Hernandez MD [facility] [place] [address] 10/21/2024 9:30 AM EDT Office Visit Internal Medicine at [address] [address] Daryn Garrett MD [facility] DR LILI WALKER [place] [address] 01/30/2025 1:30 PM EDT Laboratory Appointment Lab at [facility] Hematology Oncology [address] [place] [phone] 01/30/2025 3:[address] Scan at [place] [phone] Arturo Cordero MD [facility] HEMATOLOGY [place] [address] 01/30/2025 4:15 PM EDT Office Visit Hematology [place] [phone] Arturo Cordero MD [facility] HEMATOLOGY [place] [address] Scheduled Procedures Name Priority Associated Diagnoses Date/Ti [...] Nigel Garcia MD ? 07/28/2019 10:59 PM [facility] Department of Neurology Outpatient EEG Report [...] ? ? fluticasone propionate (FLONASE) 50 mcg/actuation [place], Suspension 50 sprays by Each Nare route [...] channel digitized electroencephalogram was performed in the [facility] Clinical Neurophysiology Laboratory. The 10/20 international system of electrode placement was used and bipolar and referential electrode montages were recorded. ??In addition to EEG the patient was monitored for EKG and lateral/vertical eye movements. Video was recorded during the session. The duration of the recording was 25 minutes. STAVE SAW OPERATOR'S REPORT: Performed by: SR Patient was [...] Nathan Ortiz MD Clinical Neurophysiology Fellow Pager: [phone] 07/26/2019 Neurology Attending I have personally reviewed the EEG, and I agree with the details as written. ?? The above report was formulated in discussion with me at the time of EEG reading, and I agree with it as documented. Nigel Garcia MD Department [place] [address] Pager: [phone], #[phone] Email: [email or web address] Sumit Pineda MD NEUROLOGY ORDERABLES * Vitamin B1, whole blood (05/02/2019 11:15 AM EDT) [facility] Signature Vit B1 Lvl Wb (NOVEMBER) 173 70 - 180 nmol/L [facility] Comment: ADDITIONAL INFORMATION This test was developed and its performance characteristics determined by [facility] in a manner consistent with CLIA requirements. This test has not been cleared or approved by the U.S. Food and Drug Administration. Test Performed by: [facility] [address] [place] [id number] [employer] Supervisor: Jose G Jefferson M.D. Ph.D.; CLIA# [id number] Blood specimen (specimen) 05/02/2019 11:15 AM EDT 05/02/2019 1:43 PM EDT Narrative Resulting Agency Comment Spec In Lab Sumit Pineda MD LAB SEND OUT ORDERAB LES Performing Organization Address [facility] Co de Phone Number [facility] [place] [address] * Protein Electrophoresis, serum (05/02/2019 11:15 AM EDT) Total Prot Electrophoresis 6.5 6.1 - 8.0 gm/dL [facility] Albumin Electrophoresis 4.17 3.60 - 6.00 gm/dL [facility] Alpha 1 Globulin 0.19 0.10 - 0.30 gm/dL [facility] Alpha 2 Globulin 0.65 0.40 - 0.90 gm/dL [facility] Beta Globulin 0.71 0.50 - 1.00 gm/dL [facility] Gamma Globulin 0.79 0.50 - 1.30 gm/dL [facility] M1 Band None Detected None Detected [facility] Blood specimen (specimen) 05/02/2019 11:15 AM EDT 05/02/2019 11:24 AM EDT Narrative Resulting Agency Comment Spec In Lab Sumit Pineda MD CHEMISTRY ORDERABLES Performing Organization Address [facility] Co de Phone Number [facility] [place] [address] documented in this encounter Visit Diagnoses Diagnosis Cognitive and behavioral changes Other signs and symptoms involving cognition Cognitive and behavioral changes Other signs and symptoms involving cognition Irritable bowel syndrome with constipation Irritable bowel syndrome documented in this encounter Care Teams Chart Clerk Relationship Specialty Start Date End Date Luis E Narayan MD [facility] [address] [place] [address] PCP - General Family Medicine 03/26/19 01/19/22 documented as of this encounter
--- OUTSIDE RECORDS SUMMARY | 2024-08-20 16:04 | XMS_ITS | Encounter Summary ---
Author Organization [facility] [place] [address] Care Team Providers Care Blast Furnace Tender Name Role Phone Luis E Narayan MD Primary Care Provider [phone] Encounter Details Date Type Department Care Team (Late st Contact Info) Description 04/30/2019 [place] [address] Ru Leon, RN Social History [...] (Latest Contact Info) Description 08/29/2024 1:00 PM [facility] Hospital En[place] [phone] Roland Gooden MD [facility] GASTROENTEROLOG Y [place] [phone] 08/29/2024 1:00 PM EST - 08/29/2024 2:00 PM EST Surgery Gastroenterology at [place] [phone] Roland Gooden MD [facility] [place] [address] EGD, UPPER GI ENDOSCOPY (WRVU 2.09) 10/02/2024 1:00 PM EDT Office Visit Ophthalmology at [place] [phone] Juanpablo Hernandez MD [facility] [place] [address] 10/21/2024 9:30 AM EDT Office Visit Internal Medicine at [address] [phone] Daryn Garrett MD [facility] DR LILI [place] [address] 01/30/2025 1:30 PM EDT Laboratory Appointment Lab at [facility] [place]ematology Oncology [address] [place], [place] [phone] 01/30/2025 3:[address] Scan at [place] [phone] Arturo Cordero MD [facility] [place] [address] 01/30/2025 4:15 PM EDT Office Visit Hematology [place] [phone] Arturo Cordero MD [facility] [place] [address] Scheduled Procedures Name Priority Associated Diagnoses Date/Ti me EGD, UPPER GI ENDOSCOPY (WRVU 2.09) Irritable bowel syndrome with constipation 08/29/2024 1:00 PM EST COLONOSCOPY, DIAGNOSTIC (WRVU 3.26) Irritable bowel syndrome with constipation 08/29/2024 1:00 PM EST documented as of this encounter Visit Diagnoses Not on filedocumented in this encounter Care Teams Blast Furnace Tender Relationship Specialty Start Date End Date Luis E Narayan MD [facility] DR LILI [place] [address] PCP - General Family Medicine 03/26/19 01/19/22 documented as of this encounter
--- OUTSIDE RECORDS SUMMARY | 2024-08-20 16:04 | XMS_ITS | Encounter Summary ---
Author Organization [facility] Address [facility] [place] [address] Care Team Providers Care Agricultural Economics Professor Name Role Phone Luis E Narayan MD Primary Care Provider [phone] Reason for Visit * Reason Onset Date Comments Other 04/18/2019 Encounter Details Date Type Department Care Team (Late st Contact Info) Description 04/18/2019 Telephone Family Medicine at [facility] [address] [place] [address] Shayy Emanuel Other Social History Tobacco Use [...] that the paperwork has been faxed to [phone]. Pt was pleased with this. * Telephone [...] leave a message: y-detailed Ok to send [facility] message: y Offered Appointment: MA/Nurse/Admissions Specialist contacted via: Message: y Call: n Pager: n documented in this encounter Plan of Treatment Upcoming Encounters Date Type Department Care Team (Latest Contact Info) Description 08/29/2024 1:00 PM EST Hospital Encounter [place] [phone] [facility] [place] [address] 08/29/2024 1:00 PM EST - 08/29/2024 2:00 PM EST Surgery [place] [phone] [facility] [place] [address] EGD, UPPER GI ENDOSCOPY (WRVU 2.09) 10/02/2024 1:00 PM EDT Office [place] [phone] [facility] [place] [address] 10/21/2024 9:30 AM EDT Office Visit Internal Medicine at [address] [phone] Daryn Garrett MD [facility] DR LILI WALKER - PRIMARY CARE [place], [place] [phone] 01/30/2025 1:30 PM EDT Laboratory Appointment Lab at [facility] Hematology Oncology [address] [place] [phone] 01/30/2025 3:[address] [place] [address] [facility] [place] [address] 01/30/2025 4:15 PM EDT Office Visit Hematology [place] [address] [facility] DR [place] [address] Scheduled Procedures Name Priority Associated Diagnoses Date/Ti [...] [facility] [address] [place] [address] PCP - General Family Medicine 03/26/19 01/19/22 documented as of this encounter
--- OUTSIDE RECORDS SUMMARY | 2024-08-20 16:04 | XMS_ITS | Encounter Summary ---
Author Organization [facility] [place] [address] Care Team Providers Care Cyber Policy And Strategy Planner Name Role Phone Luis E Narayan MD Primary Care Provider +1- [phone] Reason for Visit * Reason Onset Date Comments Referral 06/03/2019 Encounter Details Date Type Department Care Team (Late st Contact Info) Description 06/03/2019 Telephone Family Medicine at [facility] [address] [place] [phone] Yue Kwok Referral Social History Tobacco Use [...] is requesting phone calls for this patient's Archeologist Classical Pharmacist referral. documented in this encounter Plan of Treatment Upcoming Encounters Date Type Department Care Team (Latest Contact Info) Description 08/29/2024 1:00 PM EST Hospital En[place] [address] Roland Gooden MD [facility] [place] [address] 08/29/2024 1:00 PM EST - 08/29/2024 2:00 PM EST Surgery Gastroenterology at [address] Roland Gooden MD [facility] [place] [address] EGD, UPPER GI ENDOSCOPY (WRVU 2.09) 10/02/2024 1:00 PM EDT Office Visit Ophthalmology at [place] [phone] Juanpablo Hernandez MD [facility] [place] [address] 10/21/2024 9:30 AM EDT Office Visit Internal Medicine at [address] [phone] Daryn Garrett MD [facility] [place] [address] 01/30/2025 1:30 PM EDT Laboratory Appointment Lab at [facility] Hematology Oncology [address] [place], [place] [phone] 01/30/2025 3:[address] Scan at [place] [phone] Arturo Cordero MD [facility] HEMATOLOGY [place] [address] 01/30/2025 4:15 PM EDT Office Visit Hematology and Oncology at [place] [phone] Arturo Cordero MD [facility] HEMATOLOGY AND [place] [address] Scheduled Procedures Name Priority Associated Diagnoses Date/Ti me EGD, UPPER GI ENDOSCOPY (WRVU 2.09) Irritable bowel syndrome with constipation 08/29/2024 1:00 PM EST COLONOSCOPY, DIAGNOSTIC (WRVU 3.26) Irritable bowel syndrome with constipation 08/29/2024 1:00 PM EST documented as of this encounter Visit Diagnoses Not on filedocumented in this encounter Care Teams Cyber Policy And Strategy Planner Relationship Specialty Start Date End Date Luis E Narayan MD [facility] [address] [place] [address] PCP - General Family Medicine 03/26/19 01/19/22 documented as of this encounter
--- OUTSIDE RECORDS SUMMARY | 2024-08-20 16:04 | XMS_ITS | Encounter Summary ---
Author Organization [facility] Address [facility] [place] [address] Care Team Providers Care Rubber Compounder Name Role Phone Luis E Narayan MD Primary Care Provider +1- [phone] Encounter Details Date Type Department Care Team (Late st Contact Info) Description 05/09/2019 Abstract Internal Medicine at [facility] [address] [place] [address] Arlene Palomo, PLAYGROUND ATTENDANT Social History Tobacco Use Types Packs/Day Years [...] 1:00 PM EST Hospital Encounter [place] [phone] Roland Gooden MD [facility] [place] [address] 08/29/2024 1:00 PM EST - 08/29/2024 2:00 PM EST [place] [phone] Roland Gooden MD [facility] [place] [place] [address] EGD, UPPER GI ENDOSCOPY (WRVU 2.09) 10/02/2024 1:00 PM EDT Office Visit Ophthalmology at [place] [phone] Juanpablo Hernandez MD [facility] [place] [address] 10/21/2024 9:30 AM EDT Office Visit Internal Medicine at [address] [place] [phone] Daryn Garrett MD [facility] DR LILI [place] [address] 01/30/2025 1:30 PM EDT Laboratory Appointment Lab at [facility] [place]ematology Oncology [address] [place], [place] [phone] 01/30/2025 3:[address] Scan at [place] [phone] Arturo Cordero MD [facility] [place] [address] 01/30/2025 4:15 PM EDT Office Visit Hematology and Oncology at [place] [phone] Arturo Cordero MD [facility] [place] [address] Scheduled Procedures Name Priority Associated Diagnoses Date/Ti me EGD, UPPER GI ENDOSCOPY (WRVU 2.09) Irritable bowel syndrome with constipation 08/29/2024 1:00 PM EST COLONOSCOPY, DIAGNOSTIC (WRVU 3.26) Irritable bowel syndrome with constipation 08/29/2024 1:00 PM EST documented as of this encounter Visit Diagnoses Not on filedocumented in this encounter Care Teams Rubber Compounder Relationship Specialty Start Date End Date Luis E Narayan MD [facility] [place] [address] PCP - General Family Medicine 03/26/19 01/19/22 documented as of this encounter
--- OUTSIDE RECORDS SUMMARY | 2024-08-20 16:04 | XMS_ITS | Encounter Summary ---
Author Organization [facility] [place] [address] Care Team Providers Care Shrimper Name Role Phone Luis E Narayan MD Primary Care Provider +1- [phone] Encounter Details Date Type Department Care Team (Late st Contact Info) Description 05/03/2019 External Results [place] [phone] Sumit Pineda MD [facility] [place] [address] Social History Tobacco Use Types Packs/Day Years [...] Hospital Encounter [place] [phone] Roland Gooden MD [facility] [place] [address] 08/29/2024 1:00 PM EST - 08/29/2024 2:00 PM EST Surgery Gastroenterology at [place] [phone] Roland Gooden MD [facility] [place] [address] EGD, UPPER GI ENDOSCOPY (WRVU 2.09) 10/02/2024 1:00 PM EDT Office Visit Ophthalmology at [place] [phone] Juanpablo Hernandez MD [facility] [place] [address] 10/21/2024 9:30 AM EDT Office Visit Internal Medicine at [address] [phone] Daryn Garrett MD [facility] [place] [place] [address] 01/30/2025 1:30 PM EDT Laboratory Appointment Lab [place] [facility] [place] [address] [place] [phone] 01/30/2025 3:[address] Scan at [place] [phone] Arturo Cordero MD [facility] [place] [address] 01/30/2025 4:15 PM EDT Office Visit Hematology [place] [address] Arturo Cordero MD [facility] HEMATOLOGY AND ONCOLOGY [place], [place] [phone] Scheduled Procedures Name Priority Associated Diagnoses Date/Ti [...] on filedocumented in this encounter Care Teams Shrimper Relationship Specialty Start Date End Date Luis E Narayan MD [facility] [address] [place] [address] PCP - General Family Medicine 03/26/19 01/19/22 documented as of this encounter
--- OUTSIDE RECORDS SUMMARY | 2024-08-20 16:04 | XMS_ITS | Encounter Summary ---
Author Organization [facility] [place] [address] Care Team Providers Care Criminal Investigator Name Role Phone Luis E Narayan MD Primary Care Provider [phone] Reason for Visit * Reason Onset Date Comments Questions 06/13/2019 Encounter Details Date Type Department Care Team (Late st Contact Info) Description 06/13/2019 Telephone Family Medicine at [facility] [address] [place] [phone] George Lorenzo Questions Social History Tobacco Use [...] help schedule EEG. Please transfer back to pathology secretary, thank you. * Telephone Encounter - Shannon Ward RN - 06/24/2019 1:11 PM EST Voicemail msg left on identified phone to call clinic to discuss. Noted EEG ordered 05/02/19 and 05/10/19. Not scheduled yet. Note forwarded to pathology secretary to assist in scheduling. * Telephone Encounter - Shea rUena RN - 06/13/2019 3:54 PM EST Tc [...] send - message: no Offered Appointment: n/a MA/Nurse/[place] contacted via: Message: y Call: n Pager: n documented in this encounter Plan of Treatment Upcoming Encounters Date Type Department Care Team (Latest Contact Info) Description 08/29/2024 1:00 PM EST Hospital Encounter [place] [address] Roland Gooden MD [facility] [place] [address] 08/29/2024 1:00 PM EST - 08/29/2024 2:00 PM EST Surgery [place] [phone] Roland Gooden MD [facility] [place] [address] EGD, UPPER GI ENDOSCOPY (WRVU 2.09) 10/02/2024 1:00 PM EDT Office [place] [address] Juanpablo Hernandez MD [facility] [place] [address] 10/21/2024 9:30 AM EDT Office Visit Internal Medicine at [place] [address] [place] [phone] Daryn Garrett MD [facility] DR LILI [place] [address] 01/30/2025 1:30 PM EDT Laboratory Appointment Lab at [facility] Hematology Oncology [address] [place], [place] [phone] 01/30/2025 3:[address] Scan at [place] [phone] Arturo Cordero MD [facility] HEMATOLOGY [place] [address] 01/30/2025 4:15 PM EDT Office Visit Hematology and Oncology at [place] [phone] Arturo Cordero MD [facility] HEMATOLOGY [place] [address] Scheduled Procedures Name Priority Associated Diagnoses Date/Ti me EGD, UPPER GI ENDOSCOPY (WRVU 2.09) Irritable bowel syndrome with constipation 08/29/2024 1:00 PM EST COLONOSCOPY, DIAGNOSTIC (WRVU 3.26) Irritable bowel syndrome with constipation 08/29/2024 1:00 PM EST documented as of this encounter Visit Diagnoses Not on filedocumented in this encounter Care Teams Criminal Investigator Relationship Specialty Start Date End Date Luis E Narayan MD [facility] DR LIL[address] [place] [address] PCP - General Family Medicine 03/26/19 01/19/22 documented as of this encounter
--- OUTSIDE RECORDS SUMMARY | 2024-08-20 16:04 | XMS_ITS | Encounter Summary ---
Author Organization [facility] [place] [address] Care Team Providers Care Microfilm Equipment Inspector Name Role Phone Luis E Narayan MD Primary Care Provider [phone]- [phone] Reason for Referral * Consultation (Routine) - Closed Specialty Diagnoses / Procedures Referred By Gonzalez kumari Referred To Contact Sleep Center Diagnoses TITO (obstructive sleep apnea) Procedures PRG POLYLSOM 6+ YRS SLEEP W CPAP W 4+ ADDL ABHILASH Jhonny Garrett MD [facility] [place] [address] [facility] Sleep Medicine [address] [place] [address] Referral ID Status Reason Start Date Expiration Date V isits Requested Visits Authorized [id number] Closed Test Only 08/02/2019 01/30/2020 1 1 Reason for Visit * Consultation (Routine) - Specialty Diagnoses / Procedures Referred By Contchrissy kumari Referred To Contact Sleep Center Diagnoses TITO on CPAP Procedures PRG POLYSOM 6+ YRS SLEEP W 4+ ADDL ABHILASH Bonny Justin [place] [address] [facility] Sleep Medicine [address] [place] [address] Referral ID Status Reason Start Date Expiration Date Visits Requested Visits Authorized [id number] Specialty Service Requested 04/09/2019 04/08/2020 1 1 Encounter Details Date Type Department Care Team (Late st Contact Info) Description 05/09/2019 8:30 AM EDT Office Visit Sleep Center at [facility] [address] [place] [address] Jhonny Morataya MD [facility] [place] [address] RLS (restless legs syndrome); TITO (obstructive sleep [...] -Dr Morataya will send a prescription to [facility] for a new CPAP and [...] help. Two credible websites are as follows: [email or web address] [email or web address].sleepio.com An star used by the MD is as follows: CBT-I Digital Cartographer documented in this encounter Progress Notes * [...] as she got lost getting to the [facility]. Sleep Medicine Summary: Sleep Medicine Consultation [...] pm Lights out: she might like at [employer] for 10-20 min Latency: asleep quickly Awakenings: [...] total sleep time: deferred Questionnaires: Patient-reported scores: [facility] 05/09/2019 [place] [facility] 10 (High Risk) Insomnia Severity Index - Paper [place] of 10 Daytime Symptoms: Upon Awakening: she [...] during the illness over summer, she would snout puller and nap Close calls related to [...] Diagnosis Code ??? 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 Altered [...] Medical History: Diagnosis Date ??? 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 fluticasone propionate (FLONASE) 50 mcg/actuation [place], Suspension 50 sprays by Each Nare route [...] soda with lunch. Family: lives with a sheet metal duct worker supervisor but they have separate bedrooms ROS: CON: [...] Lateral leads Confirmed by MD Herminia, Jak ([id number]) on 02/15/2019 8:07:37 AM Assessment: Ms. Patience [...] results can be sent to them via [facility]. If a home care company is required the following home care company is requested: [facility] Recommendations: 1) Polysomnography in lab to titrate CPAP 2) Driving safety was reviewed with patient. If the patient feels too sleepy to drive he/she knows not to drive. If he/she becomes sleepy while driving he/she will snout puller and nap. 3) Replacement CPAP and [...] 1:00 PM EST Hospital En[place] [address] Roland Gooden MD [facility] [place] [address] 08/29/2024 1:00 PM EST - 08/29/2024 2:00 PM EST Surgery Gastroenterology at [address]1000 Roland Gooden MD [facility] [place] [address] EGD, UPPER GI ENDOSCOPY (WRVU 2.09) 10/02/2024 1:00 PM EDT Office Visit Ophthalmology at [place] [phone] Juanpablo Hernandez MD [facility] [place] [address] 10/21/2024 9:30 AM EDT Office Visit Internal Medicine at [address] [phone] Daryn Garrett MD [facility] [place] [address] 01/30/2025 1:30 PM EDT Laboratory Appointment Lab at [facility] Hematology Oncology [address] [place], [place] [phone] 01/30/2025 3:[address] Scan at [place] [phone] Arturo Cordero MD [facility] [place] [address] 01/30/2025 4:15 PM EDT Office Visit Hematology and Oncology at [place] [phone] Arturo Cordero MD [facility] [place] [address] Scheduled Procedures Name Priority Associated Diagnoses Date/Ti [...] EDT) Hemoglobin 13.5 11.7 - 15.5 gm/dL [facility] Blood specimen (specimen) 05/09/2019 10:19 AM EDT 05/09/2019 12:53 PM EDT Narrative Resulting Agency Comment Spec In Lab Jhonny Morataya MD HEMATOLOGY ORDERABLE S [facility] [place] [address] * Hematocrit (05/09/2019 10:19 AM EDT) Hematocrit 41.5 35.7 - 45.8 % [facility] Blood specimen (specimen) 05/09/2019 10:19 AM EDT 05/09/2019 12:53 PM EDT Narrative Resulting Agency Comment Spec In Lab Jhonny Morataya MD HEMATOLOGY ORDERABLE S Performing Organization Address [facility] Co de Phone Number [facility] [place] [address] * (ABNORMAL) Iron and TIBC (05/09/2019 10:19 AM EDT) Iron 46 30 - 150 mcg/dL [facility] TIBC 363 250 - 450 mcg/dL [facility] Iron Saturation 13(L) 20 - 50 % [facility] Blood specimen (specimen) 05/09/2019 10:19 AM EDT 05/09/2019 12:54 PM EDT Narrative Resulting Agency Comment Spec In Lab Jhonny Morataya MD CHEMISTRY ORDERABLES Performing Organization Address [facility] Co de Phone Number [facility] [place] [address] * Ferritin (05/09/2019 10:19 AM EDT) Ferritin 55 30 - 400 ng/mL [facility] Comment: Pediatric reference ranges not verified at [facility], interpret with caution. Reference ranges for females greater than 50 years of age approach values for men, i.e., 30-400 ng/mL. Blood specimen (specimen) 05/09/2019 10:19 AM EDT 05/09/2019 12:53 PM EDT Narrative Resulting Agency Comment Spec In Lab Jhonny Morataya MD CHEMISTRY ORDERABLES Performing Organization Address [facility]/ZIP Co de Phone Number [facility] [place] [address] documented in this encounter Visit Diagnoses Diagnosis RLS (restless legs syndrome) Restless legs syndrome (RLS) TITO (obstructive sleep apnea) Obstructive sleep apnea (adult) (pediatric) Chronic insomnia Insomnia, unspecified Irritable bowel syndrome with constipation Irritable bowel syndrome documented in this encounter Care Teams Microfilm Equipment Inspector Relationship Specialty Start Date End Date Luis E Narayan MD [facility] DR LILI [place] [address] PCP - General Family Medicine 03/26/19 01/19/22 documented as of this encounter
--- OUTSIDE RECORDS SUMMARY | 2024-08-20 16:04 | XMS_ITS | Encounter Summary ---
Author Organization [facility] Address [facility] [place] [address] Care Team Providers Care Costumer Name Role Phone Luis E Narayan MD Primary Care Provider +1- [phone] Encounter Details Date Type Department Care Team (Late st Contact Info) Description 04/15/2019 [place] [address] Ru Leon, RN Social History [...] (Latest Contact Info) Description 08/29/2024 1:00 PM [facility] Hospital En[place] [address] Roland Gooden MD [facility] [place] [address] 08/29/2024 1:00 PM EST - 08/29/2024 2:00 PM EST Surgery [place] [address] Roland Gooden MD [facility] [place] [address] EGD, UPPER GI ENDOSCOPY (WRVU 2.09) 10/02/2024 1:00 PM EDT Office Visit Ophthalmology at [place] [phone] Juanpablo Hernandez MD [facility] [place] [address] 10/21/2024 9:30 AM EDT Office Visit Internal Medicine at [address] [phone] Daryn Garrett MD [facility] DR LILI WALKER - [place] [address] 01/30/2025 1:30 PM EDT Laboratory Appointment Lab at [facility] Hematology Oncology [address] [place], [place] [phone] 01/30/2025 3:[address] Scan at [place] [phone] Arturo Cordero MD [facility] HEMATOLOGY [place] [address] 01/30/2025 4:15 PM EDT Office Visit H[place]ology [place] [address] Arturo Cordero MD [facility] HEMATOLOGY [place] [address] Scheduled Procedures Name Priority Associated Diagnoses Date/Ti me EGD, UPPER GI ENDOSCOPY (WRVU 2.09) Irritable bowel syndrome with constipation 08/29/2024 1:00 PM EST COLONOSCOPY, DIAGNOSTIC (WRVU 3.26) Irritable bowel syndrome with constipation 08/29/2024 1:00 PM EST documented as of this encounter Visit Diagnoses Not on filedocumented in this encounter Care Teams Costumer Relationship Specialty Start Date End Date Luis E Narayan MD [facility] DR LILI WALKER-[place] [address] PCP - General Family Medicine 03/26/19 01/19/22 documented as of this encounter
--- OUTSIDE RECORDS SUMMARY | 2024-08-20 16:04 | XMS_ITS | Encounter Summary ---
[place] [address] Care Team Providers Care Svp Research And Strategic Analysis Name Role Phone Luis E Narayan MD Primary Care Provider +1- [phone] Reason for Referral * Consultation (Routine) - Closed Specialty Diagnoses / Procedures Referred By Gonzalez kumari Referred To Contact Neurology Diagnoses Abnormal MRI of head Luis E Narayan MD [facility] DR LIL[address] [place] [address] [facility] Neurology [address] [place] [phone] Referral ID Status Reason Start Date Expiration Date V isits Requested Visits Authorized [id number] Closed Specialty Service Requested 03/28/2019 03/27/2020 1 1 Reason for Visit * Reason Onset Date Comments Results 03/28/2019 Encounter Details Date Type Department Care Team (Late st Contact Info) Description 03/28/2019 Telephone Family Medicine at [facility] [address] [place] [phone] Ally Palomo Results Social History Tobacco Use [...] EDT Is she wants to set up [facility], I can send her messages directly.... The [...] 1:00 PM EST Hospital Encounter Gastroenterology at [place] [phone] Roland Gooden MD [facility] [place] [address] 08/29/2024 1:00 PM EST - 08/29/2024 2:00 PM EST [place] [phone] Roland Gooden MD [facility] [place] [address] EGD, UPPER GI ENDOSCOPY (WRVU 2.09) 10/02/2024 1:00 PM EDT Office [place] [phone] Juanpablo Hernandez MD [facility] [place] [address] 10/21/2024 9:30 AM EDT Office Visit Internal Medicine at [facility] [address] [place] [address] Daryn Garrett MD [facility] DR LILI [place] [address] 01/30/2025 1:30 PM EDT Laboratory Appointment Lab at [facility] [place] [address] [place] [phone] 01/30/2025 3:[address] [place] [place] [phone] Arturo Cordero MD [facility] [place] [address] 01/30/2025 4:15 PM EDT Office Visit Hematology [place] [phone] Arturo Cordero MD [facility] DR [place] [address] Scheduled Procedures Name Priority Associated Diagnoses Date/Ti [...] examination of skull and head Atherosclerosis of [place]zanita coronary artery of [place]zan[place] heart with angina pectoris Irritable bowel syndrome with constipation Irritable bowel syndrome documented in this encounter Care Teams Svp Research And Strategic Analysis Relationship Specialty Start Date End Date Luis E Narayan MD [facility] DR LILI [place] [address] PCP - General Family Medicine 03/26/19 01/19/22 documented as of this encounter
--- OUTSIDE RECORDS SUMMARY | 2024-08-20 16:04 | XMS_ITS | Encounter Summary ---
Author Organization [facility] [place] [address] Care Team Providers Care Survey Research Associate Name Role Phone Luis E Narayan MD Primary Care Provider [phone] Reason for Visit * Consultation (Routine) - Closed Specialty Diagnoses / Procedures Referred By Gonzalez kumari Referred To Contact Endocrinology Diagnoses Type 2 diabetes mellitus with hyperglycemia, without long-term current use of insulin Luis E Nraayan MD [facility] DR LILI [place] [address] [facility] [address] [place] [address] Referral ID Status Reason Start Date Expiration Date V isits Requested Visits Authorized [id number] Closed Consult, Test & Treat 05/10/2019 05/09/2020 1 1 Encounter Details Date Type Department Care Team (Late st Contact Info) Description 05/27/2019 4:00 PM EST Office [place] [address] Type 2 diabetes mellitus with hyperglycemia, without [...] Breakfast ideas that include more protein: -1/2 Trinidadian Muffin with 1 Tbsp peanut butter and apple slices from 1 whole apple. If apples are too hard to chew with dental issues sub 1/2 cup unsweetened apple sauce. -Kiswahili yogurt or light yogurt that is 15 grams of carb or less per serving (look at total carbs) -store Jing[employer] or [employer] romansh yogurt or light yogurt, Rene Storyko's TripleZero [...] this encounter Progress Notes * Sharona De Jesus, DENISE - 05/27/2019 4:00 PM EST Adult Endocrinology [...] may be causing her neurologic problems. January t his past year she was hospitalized at [facility] on given Prednisone. Her blood sugars were high due to the steroid medication and during the brief hospital stay she was given meal associated insulin. Otherwise she has not been on meal associated insulin. Also reports another hospital stay at [facility] where she was delirious and she thinks [...] cm Height in inches 5' 2.75 Weight (Trinidadian) 228 lbs 8 oz Weight (Metric) 103.6 [...] mouth daily. fluticasone propionate (FLONASE) 50 mcg/actuation [place], Suspension 50 sprays by Each Nare route [...] Breakfast ideas that include more protein: -1/2 Trinidadian Muffin with 1 Tbsp peanut butter and apple slices from 1 whole apple. If apples are too hard to chew with dental issues sub 1/2 cup unsweetened apple sauce. -Kiswahili yogurt or light yogurt that is 15 grams of carb or less per serving (look at total carbs) -store Mir[employer] or [employer] romansh yogurt or light yogurt, Rene Story's TripleZero [...] 1:00 PM EST Hospital Encounter Gastroenterology at [place] [phone] Roland Gooden MD [facility] [place] [address] 08/29/2024 1:00 PM EST - 08/29/2024 2:00 PM EST Surgery Gastroenterology at [place] [phone] Roland Gooden MD [facility] [place] [place] [address] EGD, UPPER GI ENDOSCOPY (WRVU 2.09) 10/02/2024 1:00 PM EDT Office Visit Ophthalmology at [place] [phone] Juanpablo Hernandez MD [facility] [place] [address] 10/21/2024 9:30 AM EDT Office Visit Internal Medicine at [facility] [address] [place] [address] Daryn Garrett MD [facility] DR LILI [place] [address] 01/30/2025 1:30 PM EDT Laboratory Appointment Lab at [facility] Hematology Oncology [address] [place] [phone] 01/30/2025 3:[address] [place] [phone] Arturo Cordero MD [facility] [place] [address] 01/30/2025 4:15 PM EDT Office Visit Hematology [place] [phone] Arturo Cordero MD [facility] [place] [address] Scheduled Procedures Name Priority Associated Diagnoses Date/Ti [...] syndrome documented in this encounter Care Teams Survey Research Associate Relationship Specialty Start Date End Date Luis E Narayan MD [facility] DR LILI [place] [address] PCP - General Family Medicine 03/26/19 01/19/22 documented as of this encounter
--- OUTSIDE RECORDS SUMMARY | 2024-08-20 16:04 | XMS_ITS | Encounter Summary ---
Author Organization [facility] [address] Care Team Providers Care Boat Canvas Maker Installer Name Role Phone Luis E Narayan MD Primary Care Provider Reason for Referral * Diagnostic Test (Routine) - Closed Specialty Diagnoses / Procedures Referred By Contac t Referred To Contact Radiology Diagnoses Adrenal mass, left Renal mass, left Procedures MRI Abdomen wwo Contrast (Generic) Avila Medina MD [facility] [place] [address] [place] [address] Referral ID Status Reason Start Date Expiration Date V isits Requested Visits Authorized [id number] Closed Specialty Service Requested 04/24/2019 06/22/2019 1 1 Reason for Visit * Diagnostic Test (Routine) - Closed Specialty Diagnoses / Procedures Referred By Contac t Referred To Contact Radiology Diagnoses Adrenal mass, left Renal mass, left Procedures MRI Abdomen wwo Contrast (Generic) Avila Medina MD [facility] [place] [address] [place] [address] Referral ID Status Reason Start Date Expiration Date V isits Requested Visits Authorized [id number] Closed Specialty Service Requested 04/24/2019 06/22/2019 1 1 Encounter Details Date Type Department Care Team (Latest Contact Info) Description 05/02/2019 2:50 PM EDT - 05/02/2019 11:59 PM EDT Hospital Encounter MRI at [facility] [place] [address] Avila Medina MD [facility] [place] [address] Adrenal mass, left; Renal mass, left Discharge [...] 04/09/2019 06/21/2019 fluticasone propionate (FLONASE) 50 mcg/actuation [place], Suspension 50 sprays by Each Nare route [...] 1:00 PM EST Hospital En[place] [address] Roland Gooden MD [facility] [place] [address] 08/29/2024 1:00 PM EST - 08/29/2024 2:00 PM EST [place] [phone] Roland Gooden MD [facility] [place] [address] EGD, UPPER GI ENDOSCOPY (WRVU 2.09) 10/02/2024 1:00 PM EDT Office Visit Ophthalmology at [place] [phone] Juanpablo Hernandez MD [facility] [address] 10/21/2024 9:30 AM EDT Office Visit Internal Medicine at [address] [place] [phone] Daryn Garrett MD [facility] DR LILI WALKER - PRIMARY CARE [place] [phone] 01/30/2025 1:30 PM EDT Laboratory Appointment Lab at [facility] Hematology Oncology [address] [place], [place] [phone] 01/30/2025 3:[address] [place] [phone] Arturo Cordero MD [facility] DR HEMATOLOGY [place] [address] 01/30/2025 4:15 PM EDT Office Visit H[place]ology [place] [phone] Arturo Cordero MD [facility] DR HEMATOLOGY [place] [address] Scheduled Procedures Name Priority Associated Diagnoses Date/Ti [...] mLs documented in this encounter Care Teams Boat Canvas Maker Installer Relationship Specialty Start Date End Date Luis E Narayan MD [facility] DR LILI WALK[place] [address] PCP - General Family Medicine 03/26/19 01/19/22 documented as of this encounter
--- OUTSIDE RECORDS SUMMARY | 2024-08-20 16:04 | XMS_ITS | Encounter Summary ---
Author Organization [facility] Address [facility] [place] [address] Care Team Providers Care Chicken Cleaner Name Role Phone Luis E Narayan MD Primary Care Provider [phone] Encounter Details Date Type Department Care Team (Late st Contact Info) Description 05/09/2019 Orders Only Sleep Center at [facility] [address] [place] [address] Jhonny Morataya MD [facility] [place] [address] Social History Tobacco Use Types Packs/Day Years [...] Medical History: Diagnosis Date ??? Atherosclerosis of [place] tribe coronary artery [...] 1:00 PM EST Hospital En[place] [address] Roland Gooden MD [facility] [place] [address] 08/29/2024 1:00 PM EST - 08/29/2024 2:00 PM EST [place] [address] Roland Gooden MD [facility] [place] [address] EGD, UPPER GI ENDOSCOPY (WRVU 2.09) 10/02/2024 1:00 PM EDT Office [place] [phone] Juanpablo Hernandez MD [facility] [place] [address] 10/21/2024 9:30 AM EDT Office Visit Internal Medicine at [address] [phone] Daryn Garrett MD [facility] DR LILI [place] [address] 01/30/2025 1:30 PM EDT Laboratory Appointment Lab at [facility] [place] Oncology [address] [place] [phone] 01/30/2025 3:[address] [place] [place] [address] Arturo Cordero MD [facility] [place] [address] 01/30/2025 4:15 PM EDT Office Visit H[place]ology [place] [address] Arturo Cordero MD [facility] DR [place] [address] Scheduled Procedures Name Priority Associated Diagnoses Date/Ti me EGD, UPPER GI ENDOSCOPY (WRVU 2.09) Irritable bowel syndrome with constipation 08/29/2024 1:00 PM EST COLONOSCOPY, DIAGNOSTIC (WRVU 3.26) Irritable bowel syndrome with constipation 08/29/2024 1:00 PM EST documented as of this encounter Visit Diagnoses Not on filedocumented in this encounter Care Teams Chicken Cleaner Relationship Specialty Start Date End Date Luis E Narayan MD [facility] [address] [place] [place] [address] PCP - General Family Medicine 03/26/19 01/19/22 documented as of this encounter
--- OUTSIDE RECORDS SUMMARY | 2024-08-20 16:04 | XMS_ITS | Encounter Summary ---
Author Organization [facility] [place] [address] Care Team Providers Care Ict Systems Test Engineer Name Role Phone Brenda Canchola MD Primary Care Provider Unavaila ble Encounter Details Date Type Department Care Team (Late st Contact Info) Description 03/19/2019 Ancillary Procedure Radiology Library [place] [facility] [place] [phone] Luis E Narayan MD [facility] DR LILI [place] [address] Social History Tobacco Use Types Packs/Day Years [...] 1:00 PM EST Hospital Encounter [place] [phone] Roland Gooden MD [facility] GASTROENTER[place] [address] 08/29/2024 1:00 PM EST - 08/29/2024 2:00 PM EST [place] [address] Roland Gooden MD [facility] [place] [address] EGD, UPPER GI ENDOSCOPY (WRVU 2.09) 10/02/2024 1:00 PM EDT Office Visit Ophthalmology at [place] [phone] Juanpablo Hernandez MD [facility] [address] 10/21/2024 9:30 AM EDT Office Visit Internal Medicine at [address] [phone] Daryn Garrett MD [facility] [place] [address] 01/30/2025 1:30 PM EDT Laboratory Appointment Lab at [facility] Hematology Oncology [address] [place] [phone] 01/30/2025 3:[address] Scan at [place] [phone] Arturo Cordero MD [facility] [place] [address] 01/30/2025 4:15 PM EDT Office Visit Hematology [place] [phone] Arturo Cordero MD [facility] [place] [address] Scheduled Procedures Name Priority Associated Diagnoses Date/Ti [...] & Pelvis (03/19/2019 12:00 AM EDT) Narrative [facility] - 03/28/2019 11:04 AM EDT This exam is auto-finalizing. It's purpose is for storage only. Luis E Narayan MD IMG FILM LIBRARY OR DERABLES Performing Organization Address City/State/[facility] Co de Phone Number [place], [place] documented in this encounter Visit Diagnoses Not on filedocumented in this encounter Care Teams Ict Systems Test Engineer Relationship Specialty Start Date End Date Brenda Canchola MD PCP - General 06/01/10 03/25/19 documented as of this encounter
--- OUTSIDE RECORDS SUMMARY | 2024-08-20 16:04 | XMS_ITS | Encounter Summary ---
Author Organization [facility] [place] [address] Care Team Providers Care Laboratory Tech Name Role Phone Luis E Narayan MD Primary Care Provider [phone] Encounter Details Date Type Department Care Team (Late st Contact Info) Description 04/12/2019 Telephone Family Medicine at [facility] [address] [place] [address] Denisse López RN Social History Tobacco Use [...] about disability paperwork left at appointment, this mortgage loan underwriter will look for and follow up. [...] 1:00 PM EST Hospital Encounter [place] [phone] Roland Gooden MD [facility] [place] [address] 08/29/2024 1:00 PM EST - 08/29/2024 2:00 PM EST Surgery [place] [phone] Roland Gooden MD [facility] [place] [address] EGD, UPPER GI ENDOSCOPY (WRVU 2.09) 10/02/2024 1:00 PM EDT Office Visit [place] [phone] Juanpablo Hernandez MD [facility] [place] [address] 10/21/2024 9:30 AM EDT Office Visit Internal Medicine at [facility] [address] [place] [phone] Daryn aGrrett MD [facility] DR LILI WALKER [place] [address] 01/30/2025 1:30 PM EDT Laboratory Appointment Lab at [facility] Hematology Oncology [address] [place], [place] [phone] 01/30/2025 3:[address] Scan at [place] [phone] Arturo Cordero MD [facility] [place] [address] 01/30/2025 4:15 PM EDT Office Visit Hematology [place] [phone] Arturo Cordero MD [facility] DR HEMATOLOGY [place] [address] Scheduled Procedures Name Priority Associated Diagnoses Date/Ti me EGD, UPPER GI ENDOSCOPY (WRVU 2.09) Irritable bowel syndrome with constipation 08/29/2024 1:00 PM EST COLONOSCOPY, DIAGNOSTIC (WRVU 3.26) Irritable bowel syndrome with constipation 08/29/2024 1:00 PM EST documented as of this encounter Visit Diagnoses Not on filedocumented in this encounter Care Teams Laboratory Tech Relationship Specialty Start Date End Date Luis E Narayan MD [facility] DR LILI [place] [address] PCP - General Family Medicine 03/26/19 01/19/22 documented as of this encounter
--- OUTSIDE RECORDS SUMMARY | 2024-08-20 16:04 | XMS_ITS | Encounter Summary ---
Author Organization [facility] [place] [address] Care Team Providers Care Development And Planning Engineer Name Role Phone Luis E Narayan MD Primary Care Provider [phone] Encounter Details Date Type Department Care Team (Latest Contact Info) Description 05/27/2019 1:57 PM EST - 05/27/2019 11:59 PM EST Hospital Encounter Mammography/[place] [address] Luis E Narayan MD [facility] DR LILI [place] [address] Healthcare maintenance Discharge Disposition: Home Social History [...] 04/09/2019 06/21/2019 fluticasone propionate (FLONASE) 50 mcg/actuation [place], Suspension 50 sprays by Each Nare route [...] PM EST Hospital Encounter [place] [phone] Roland Gooden MD [facility] [place] [address] 08/29/2024 1:00 PM EST - 08/29/2024 2:00 PM EST Surgery [place] [address] Roland Gooden MD [facility] [place] [address] EGD, UPPER GI ENDOSCOPY (WRVU 2.09) 10/02/2024 1:00 PM EDT Office [place] [phone] Juanpablo Hernandez MD [facility] [place] [address] 10/21/2024 9:30 AM EDT Office Visit Internal Medicine at [address] [phone] Daryn Garrett MD [facility] DR [place] [address] 01/30/2025 1:30 PM EDT Laboratory Appointment Lab at [facility] Hematology Oncology [address] [place] [phone] 01/30/2025 3:[address] [place] [address] Arturo Cordero MD [facility] [place] [address] 01/30/2025 4:15 PM EDT Office Visit Hematology and Oncology at [facility] [place] [place] [address] Arturo Cordero MD [facility] [place] [address] Scheduled Procedures Name Priority Associated Diagnoses Date/Ti [...] syndrome documented in this encounter Care Teams Development And Planning Engineer Relationship Specialty Start Date End Date Luis E Narayan MD [facility] DR LIL[place] [address] PCP - General Family Medicine 03/26/19 01/19/22 documented as of this encounter
--- OUTSIDE RECORDS SUMMARY | 2024-08-20 16:04 | XMS_ITS | Encounter Summary ---
Author Organization [facility] [place] [address] Care Team Providers Care Agricultural Equipment Design Engineer Name Role Phone Luis E Narayan MD Primary Care Provider [phone] Reason for Referral * Consultation (Routine) - Closed Specialty Diagnoses / Procedures Referred By Gonzalez kumari Referred To Contact Endocrinology Diagnoses Type 2 diabetes mellitus with hyperglycemia, without long-term current use of insulin Luis E Narayan MD [facility] [place] [address] [facility] Endocrinology [address] [place] [phone] Referral ID Status Reason Start Date Expiration Date V isits Requested Visits Authorized [id number] Closed Consult, Test & Treat 05/10/2019 05/09/2020 1 1 * Psychiatric (Routine) - Duplicate Referral Specialty Diagnoses / Procedures Referred By Gonzalez kumari Referred To Contact Psychiatry Diagnoses Altered mental status, unspecified altered mental status type Abnormal MRI of head Luis E Narayan MD [facility] [place] [address] [facility] Psychiatry [address] [place] [phone] Referral ID Status Reason Start Date Expiration Date Visits Requested Visits Authorized [id number] Duplicate Referral Consult, Test & Treat 05/10/2019 05/09/2020 1 1 Reason for Visit * Reason Comments Follow-up Encounter Details Date Type Department Care Team (Late st Contact Info) Description 05/10/2019 1:00 PM EDT Office Visit Family Medicine at [facility] [address] [place] [phone] Luis E Narayan MD [facility] [place] [address] Altered mental status, unspecified altered mental status [...] some of the symptoms. She did see [facility] Neurology for nerve conduction testing, and they [...] be part of cause of her neuropathy. [facility] Testing was negative for Lyme, Ehrlichia, babesia, [...] 1:00 PM EST Hospital Encounter [place] [phone] Roland Gooden MD [facility] [place] [address] 08/29/2024 1:00 PM EST - 08/29/2024 2:00 PM EST [place] [phone] Roland Gooden MD [facility] [place] [address] EGD, UPPER GI ENDOSCOPY (WRVU 2.09) 10/02/2024 1:00 PM EDT Office [place] [phone] Juanpablo Hernandez MD [facility] [place] [address] 10/21/2024 9:30 AM EDT Office Visit Internal Medicine at [place] [address] [place] [phone] Daryn Garrett MD [facility] DR LILI [place] [address] 01/30/2025 1:30 PM EDT Laboratory Appointment Lab at [facility] Hematology Oncology [address] [place] [phone] 01/30/2025 3:[address] [place] [phone] Arturo Cordero MD [facility] [place] [address] 01/30/2025 4:15 PM EDT Office Visit Hematology [place] [phone] Arturo Cordero MD [facility] DR [place] [address] Scheduled Procedures Name Priority Associated Diagnoses Date/Ti [...] syndrome documented in this encounter Care Teams Agricultural Equipment Design Engineer Relationship Specialty Start Date End Date Luis E Narayan MD [facility] DR LILI WALKER-FAMILY [place], [place] [phone] PCP - General Family Medicine 03/26/19 01/19/22 documented as of this encounter
--- OUTSIDE RECORDS SUMMARY | 2024-08-20 16:04 | XMS_ITS | Encounter Summary ---
Author Organization [facility] Address [facility] [place] [address] Care Team Providers Care Mechatronics Technician Name Role Phone Luis E Narayan MD Primary Care Provider [phone] Encounter Details Date Type Department Care Team (Late st Contact Info) Description 04/15/2019 [place] [phone] Avila Medina MD [facility] [place] [address] Social History Tobacco Use Types Packs/Day Years [...] 1:00 PM EST Hospital En[place] [phone] Roland Gooden MD [facility] [place] [address] 08/29/2024 1:00 PM EST - 08/29/2024 2:00 PM EST [place] [phone] Roland Gooden MD [facility] [place] [address] EGD, UPPER GI ENDOSCOPY (WRVU 2.09) 10/02/2024 1:00 PM EDT Office [place] [address] Juanpablo Hernandez MD [facility] [place] [address] 10/21/2024 9:30 AM EDT Office Visit Internal Medicine at [address] [phone] Daryn Garrett MD [facility] [place] [address] 01/30/2025 1:30 PM EDT Laboratory Appointment Lab at [facility] Hematology Oncology [address] [place] [phone] 01/30/2025 3:[address] [place] [address] Arturo Cordero MD [facility] HEMATOLOGY [place] [address] 01/30/2025 4:15 PM EDT Office Visit [place]ology [place] [address] Arturo Cordero MD [facility] HEMATOLOGY AND ONCOLOGY [place], [place] [phone] Scheduled Procedures Name Priority Associated Diagnoses Date/Ti me EGD, UPPER GI ENDOSCOPY (WRVU 2.09) Irritable bowel syndrome with constipation 08/29/2024 1:00 PM EST COLONOSCOPY, DIAGNOSTIC (WRVU 3.26) Irritable bowel syndrome with constipation 08/29/2024 1:00 PM EST documented as of this encounter Visit Diagnoses Not on filedocumented in this encounter Care Teams Mechatronics Technician Relationship Specialty Start Date End Date Luis E Narayan MD [facility] DR LILI WALK[place] [address] PCP - General Family Medicine 03/26/19 01/19/22 documented as of this encounter
--- OUTSIDE RECORDS SUMMARY | 2024-08-20 16:04 | XMS_ITS | Encounter Summary ---
Author Organization [facility] Address [place] [id number] Care Team Providers Care Heel Buffer Name Role Phone Luis E Narayan MD Primary Care Provider Reason for Referral * Consultation (Urgent) - Closed Specialty Diagnoses / Procedures Referred By Contac t Referred To Contact Urology Diagnoses Renal mass Elpidio Pinedo IV, MD [facility] [place] [address] [facility] [place] [address] Referral ID Status Reason Start Date Expiration Date V isits Requested Visits Authorized [id number] Closed Consult, Test & Treat 03/26/2019 03/25/2020 1 1 * Consultation (Urgent) - Closed Specialty Diagnoses / Procedures Referred By Contac t Referred To Contact Neurology Diagnoses Generalized weakness Elpidio Pinedo IV, MD [facility] [place] [address] [facility] [address] [place] [address] Referral ID Status Reason Start Date Expiration Date V isits Requested Visits Authorized [id number] Closed Consult, Test & Treat 03/26/2019 03/25/2020 1 1 Reason for Visit * Reason Comments Edema Encounter Details Date Type Department Care Team (Late st Contact Info) Description 03/26/2019 8:40 PM EDT - 03/27/2019 2:36 AM EDT Emergency Emergency Department [facility] [address] Avila Farnsworth MD [facility] [place] [address] Generalized weakness; Other specified diabetes mellitus with diabetic neuropathy, unspecified whether jail insulin use; Renal mass Discharge Disposition: Home [...] 11/26/2018 04/09/2019 fluticasone propionate (FLONASE) 50 mcg/actuation [place], Suspension 50 sprays by Each Nare route [...] 03/26/2019 10:19 PM EDT Pt transported to [facility] via tech. * Elpidio Pinedo IV - [...] medical care so far. 01/23-01/27 admitted to [place], discharged on prednisone taper and then sought care at [facility] where she had CT scans done [...] disposition. Elpidio Pinedo IV, MD Resident 03/26/19 [id number] Associated attestation - Avila Farnsworth MD - [...] encounter Miscellaneous Notes * ED Triage - Gial Almazan RN - 03/26/2019 8:18 PM EDT [...] 1:00 PM EST Hospital Encounter [place] [phone] Roland Gooden MD [facility] [place] [address] 08/29/2024 1:00 PM EST - 08/29/2024 2:00 PM EST Surgery Gastroenterology at [address] Roland Gooden MD [facility] [place] [address] EGD, UPPER GI ENDOSCOPY (WRVU 2.09) 10/02/2024 1:00 PM EDT Office Visit Ophthalmology at [place] [phone] Juanpablo Hernandez MD [facility] [place] [address] 10/21/2024 9:30 AM EDT Office Visit Internal Medicine at [address] [phone] Daryn Garrett MD [facility] DR L[place] [address] 01/30/2025 1:30 PM EDT Laboratory Appointment Lab at [facility] Hematology Oncology [address] [place], [place] [phone] 01/30/2025 3:[address] Scan at [place] [phone] Arturo Cordero MD [facility] [place] [address] 01/30/2025 4:15 PM EDT Office Visit Hematology and Oncology at [place] [phone] Arturo Cordero MD [facility] [place] [address] Scheduled Procedures Name Priority Associated Diagnoses Date/Ti [...] 10:10 PM EDT) Ethanol <100 <=99 mg/L [facility] Comment: Greater than 800 mg/L (0.08%) should be considered intoxicated. 3400 to 4500 mg/L (0.34 - 0.45%) is considered severe intoxication. Greater than 5500 mg/L (0.55%) is usually fatal. Blood specimen (specimen) 03/26/2019 10:10 PM EDT 03/26/2019 10:18 PM EDT Narrative Resulting Agency Comment Spec In Lab Vaughn Boone MD CHEMISTRY ORDERABLES Performing Organization Address [facility]/ZIP Co de Phone Number [facility] [place] [address] * Gold Tube HOLD (03/26/2019 9:53 PM EDT) Gold Hold Sample in lab. [facility] Blood specimen (specimen) Venous Draw / Unknown 03/26/2019 9:53 PM EDT 03/26/2019 10:04 PM EDT Elpidio Pinedo IV, MD CHEMISTRY ORDERABLE S Performing Organization Address [facility] Co de Phone Number [facility] [place] [address] * Blue Tube HOLD (03/26/2019 9:53 PM EDT) Blue Hold Sample in lab. [facility] Blood specimen (specimen) Venous Draw / Unknown 03/26/2019 9:53 PM EDT 03/26/2019 10:04 PM EDT Elpidio Pinedo IV, MD HEMATOLOGY ORDERABL ES Performing Organization Address [facility] Co de Phone Number [facility] [place] [address] * Differential, Automated (03/26/2019 9:53 PM EDT) Neutrophil % 57.9 % [facility] Neutrophil Absolute 5.86 1.70 - 6.10 x10(3)/[facility] Lymph % 30.9 % [facility] Lymphocytes Abs 3.1 0.9 - 3.2 x10(3)/[facility] Monocyte % 8.2 % [facility] Monocyte Abs 0.8 0.3 - 0.9 x10(3)/[facility] Eos % 2.1 % [facility] Eosinophils Abs 0.2 0.0 - 0.4 x10(3)/[facility] Basophil % 0.7 % [facility] Baso Absolute 0.1 0.0 - 0.1 x10(3)/[facility] Immature Gran % 0.20 % [facility] Comment: Immature granulocytes(IG's)percentage and absolute count will include metamyelocytes, myelocytes, and promyelocytes. Blood smears from CBCs yielding IG's will be scanned manually for concordance. If this scan disagrees with the automated IG or if promyelocytes are noted, a manual differential will be performed. Immature Gran Absolute 0.02 0.00 - 0.04 x10(3)/[facility] Blood specimen (specimen) 03/26/2019 9:53 PM EDT 03/26/2019 10:03 PM EDT Narrative Resulting Agency Comment Spec In Lab Elpidio Pinedo IV, MD HEMATOLOGY ORDERABL ES [facility] [place] [address] * (ABNORMAL) Hemogram (03/26/2019 9:53 PM EDT) White Blood Cell 10.1(H) 4.0 - 9.5 x10(3)/ L [facility] Red Blood Cell 4.65 4.00 - 5.21 x10(6)/ L [facility] Hemoglobin 13.6 11.7 - 15.5 gm/dL [facility] Hematocrit 40.1 35.7 - 45.8 % [facility] Mean Cell Volume 86.2 82.6 - 94.4 fL [facility] Mean Cell Hemoglobin 29.2 27.1 - 32.0 pg [facility] Mean Cell Hemoglobin Concentration 33.9 31.7 - 35.0 gm/dL [facility] Platelet 458(H) 145 - 357 x10(3)/mc L [facility] RDW Standard Deviation 45.4 37.0 - 46.0 fL [facility] RDW coefficient of variation 14.4(H) 11.5 - 14.1 % [facility] Mean Platelet Volume 9.4 7.6 - 12.9 fL [facility] NRBC% auto 0.0 % [facility] NRBC Absolute 0.000 0.000 - 0.000 x10(3)/mc L [facility] Blood specimen (specimen) 03/26/2019 9:53 PM EDT 03/26/2019 10:03 PM EDT Narrative Resulting Agency Comment Spec In Lab Elpidio Pinedo IV, MD HEMATOLOGY ORDERABL ES [facility] [place] [address] * (ABNORMAL) Hemoglobin A1c (03/26/2019 9:53 PM EDT) Hemoglobin A1c 8.0(H) 4.3 - 5.6 % [facility] [...] 1, S67-74 Estimated Average Glucose 183 mg/dL [facility] Comment: eAG [...] into estimated average glucose values. ??Diabetes Care 2008:31(8):4718-0954. Blood specimen (specimen) 03/26/2019 9:53 PM EDT 03/26/2019 10:03 PM EDT Narrative Resulting Agency Comment Spec In Lab Vaughn Boone MD CHEMISTRY ORDERABLES Performing Organization Address [facility] Co de Phone Number [facility] [place] [address] * pro-Brain Natriuretic Peptide (03/26/2019 9:53 PM EDT) Pathologist [facility] NT-proBNP 108 <=125 pg/mL [facility] Blood specimen (specimen) 03/26/2019 9:53 PM EDT 03/26/2019 10:03 PM EDT Narrative Resulting Agency Comment Spec In Lab Vaughn Boone MD CHEMISTRY ORDERABLES Performing Organization Address [facility] Co de Phone Number [facility] [place] [address] * Troponin (03/26/2019 9:53 PM EDT) [facility] Troponin-T <0.01 0.00 - 0.00 ng/mL [facility] Comment: The 99th percentile for Troponin T is less than 0.01 ng/mL, any detectable cTnT concentration using this assay should be considered elevated. According to the third universal definition of myocardial infarction the following criteria with a clinical presentation consistent with acute myocardial ischemia meets the diagnosis for a myocardial infarction (MS). Detection of a rise and/or fall of cTnT, with at least one value greater than the 99th percentile (> or = 0.01) and with at least one of the following ?? Symptoms of ischemia ?? New or presumed new significant AG-tlkvnyy-I wave (ST-T) changes or new left bundle [...] additional sample may be indicated. Reference: Third [place] Definition of Myocardial Infarction. Journal of the [place] [employer] 2012;60:1581-98 Blood specimen (specimen) 03/26/2019 9:53 PM EDT 03/26/2019 10:03 PM EDT Narrative Resulting Agency Comment Spec In Lab Vaughn Boone MD CHEMISTRY ORDERABLES [facility] [place] [address] * (ABNORMAL) Basic Metabolic Panel (non-fasting) (03/26/2019 9:53 PM EDT) Glucose 131 65 - 199 mg/dL [facility] Comment:Diabetes: >=200 mg/d L plus symptoms Blood Urea Nitrogen 13 8 - 18 mg/dL [facility] Creatinine 0.68(L) 0.70 - 1.20 mg/dL [facility] Sodium 142 135 - 145 mmol/L [facility] Potassium 3.7 3.5 - 5.0 mmol/L [facility] [...] 15 mmol/L [facility] Calcium 9.9 8.5 - 10.5 mg/dL [facility] Est Glomerular Filtration Rate 96 >=60 mL/min/1. 73 m?? [facility] Comment: The eGFR was calculated using the CKD-EPI equation. As with all creatinine based estimates of kidney function, eGFR values calculated with the CKD-EPI equation are not accurate in patients with acute kidney failure, extremes of body mass or the acutely ill. [email or web address]/[facility]kf eGFR 111 >=60 mL/min/1. 73 m?? [facility] Comment: The eGFR was calculated using the CKD-EPI equation. As with all creatinine based estimates of kidney function, eGFR values calculated with the CKD-EPI equation are not accurate in patients with acute kidney failure, extremes of body mass or the acutely ill. [email or web address]/DHnkf Blood specimen (specimen) 03/26/2019 9:53 PM EDT 03/26/2019 10:03 PM EDT Narrative Resulting Agency Comment Spec In Lab Vaughn Boone MD CHEMISTRY ORDERABLES [facility] [place] [address] * (ABNORMAL) Rapid Drug Screen w/o Confirmation, Urine (03/26/2019 9:49 PM EDT) Barbiturates Screen, Urine None Detected None Detected [facility] Comment: The barbiturate screen detects barbiturates [...] Benzodiazepines Screen, Urine None Detected None Detected [facility] Comment: The benzodiazepines screen detects benzodiazepines [...] Cocaine Screen, Urine None Detected None Detected [facility] Comment: The cocaine metabolites screen detects benzoylecgonine (Cocaine Metabolite) at concentrations >150 ng/mL. A ? Presumptive Positive? result indicates that the screening result was positive but has not yet been confirmed by a highly-specific method. As with any screen, occasional false positive results from cross-reacting substances may occur. Not for Medico-Legal Purposes. Methadone Metabolites Screen, Urine None Detected None Detected [facility] Comment: The methadone metabolite screen detects EDDP (major methadone metabolite) at concentrations >100 ng/mL. A ? Presumptive Positive? result indicates that the screening result was positive but has not yet been confirmed by a highly-specific method. As with any screen, occasional false positive results from cross-reacting substances may occur. Not for Medico-Legal Purposes. Opiate Screen, Urine None Detected None Detected [facility] Comment: The opiates screen detects opiates [...] Cannabinoid Screen, Urine Presumptive Pos(A) None Detected [facility] Comment: The marijuana metabolites screen detects the THC metabolite (73-lfw-3-carboxy-delta 9-THC) at concentrations >20 ng/mL. A ? Presumptive Positive? result indicates that the screening result was positive but has not yet been confirmed by a highly-specific method. As with any screen, occasional false positive results from cross-reacting substances may occur. Not for Medico-Legal Purposes. Oxycodone Screen, Urine None Detected None Detected [facility] Comment: The oxycodone screen detects oxycodone and oxymorphone at concentrations >100 ng/mL. A ? Presumptive Positive? result indicates that the screening result was positive but has not yet been confirmed by a highly-specific method. As with any screen, occasional false positive results from cross-reacting substances may occur. Not for Medico-Legal Purposes. Buprenorphine Screen, Urine None Detected None Detected [facility] Comment: The buprenorphine screen detects buprenorphine at concentrations >5 ng/mL. A ? Presumptive Positive? result indicates that the screening result was positive but has not yet been confirmed by a highly-specific method. As with any screen, occasional false positive results from cross-reacting substances may occur. Not for Medico-Legal Purposes. Fentanyl Screen, Urine None Detected None Detected [facility] Comment: The fentanyl screen detects fentanyl at concentrations >2 ng/mL. A ? Presumptive Positive? result indicates that the screening result was positive but has not yet been confirmed by a highly-specific method. As with any screen, occasional false positive results from cross-reacting substances may occur. Not for Medico-Legal Purposes. Tricyclics Screen, Urine None Detected None Detected [facility] Comment: The tricyclics screen detects tricyclic [...] Ethanol Screen, Urine None Detected None Detected [facility] Comment:This urine ethanol a ssay detects ethanol at concentrations >/= 100 mg/L. Amphetamines Screen, Urine None Detected None Detected [facility] Comment: The amphetamine screen detects d-amphetamine and d-methamphetamine at concentrations >300 ng/mL. A ? Presumptive Positive? result indicates that the screening result was positive but has not yet been confirmed by a highly-specific method. As with any screen, occasional false positive results from cross-reacting substances may occur. Not for Medico-Legal Purposes. Adulterants Screen, Urine None Detected None Detected [facility] Comment: No adulteration or dilution of [...] MD CHEMISTRY ORDERABLE S Performing Organization Address [facility] Co de Phone Number [facility] [place] [address] * Rapid Drug Screen, Urine (RODRIGUEZ Request) (03/26/2019 9:49 PM EDT) RODRIGUEZ Conf Requested No [facility] RODRIGUEZ Requested See Comment [facility] Comment:Refer to Rapid Drug Screen w/o Confirmation, Urine for results. Urine specimen (specimen) 03/26/2019 9:49 PM EDT 03/26/2019 10:12 PM EDT Narrative Resulting Agency Comment Spec In Lab Vaughn Boone MD URINE ORDERABLES Performing Organization Address [facility] Co de Phone Number [facility] [place] [address] * Urinalysis with reflex Culture (03/26/2019 9:49 PM EDT) Glucose, Urine Dipstick Negative Negative mg/dL [facility] Protein, Urine Dipstick Negative Negative mg/dL [facility] Bilirubin, Urine Dipstick Negative Negative mg/dL [facility] Comment: Clinical correlation required for positive Urine Bilirubin results as false positive may occur with some drugs and drug related products. If a false positive is suspected a serum total bilirubin should be considered if clinically indicated. Urobilinogen, Urine Dipstick Normal Normal mg/dL [facility] pH, Urn (dipstick) 6.0 5.0 - 8.0 [facility] Blood, Urine Dipstick Negative Negative mg/dL [facility] Ketone, Urine Dipstick Negative Negative mg/dL [facility] Nitrite, Urine Dipstick Negative Negative [facility] Leukocytes, Urine Dipstick Negative Negative [facility] Appearance, Urine Dipstick Clear Clear [facility] Specific [place] Urine Automated 1.013 1.002 - 1.030 [facility] Color, Urine Dipstick Yellow Yellow [facility] Reflex to Culture No [facility] Urine specimen obtained by clean catch procedure (specimen) 03/26/2019 9:49 PM EDT 03/26/2019 10:12 PM EDT Narrative Resulting Agency Comment Spec In Lab Vaughn Boone MD URINE ORDERABLES [facility] [place] [address] documented in this encounter Visit Diagnoses Diagnosis Generalized weakness Other malaise and fatigue Other specified diabetes mellitus with diabetic neuropathy, unspecified whether jail insulin use Renal mass Unspecified disorder of [...] Sepulveda) documented in this encounter Care Teams Heel Buffer Relationship Specialty Start Date End Date Luis E Narayan MD [facility] [place] [address] PCP - General Family Medicine 03/26/19 01/19/22 documented as of this encounter
--- OUTSIDE RECORDS SUMMARY | 2024-08-20 16:05 | XMS_ITS | Encounter Summary ---
Author Organization [facility] [place] [address] Care Team Providers Care Infant Toddler Lead Teacher Name Role Phone Brenda Canchola MD Primary Care Provider Unavaila ble Encounter Details Date Type Department Care Team (Late st Contact Info) Description 09/22/2011 Ancillary Procedure Radiology Library at [facility] [place] [phone] Luis E Narayan MD [facility] DR LILI [place] [address] Social History Tobacco Use Types Packs/Day Years [...] EST Hospital Encounter [place] [phone] oRland Gooden MD [facility] [place] [address] 08/29/2024 1:00 PM EST - 08/29/2024 2:00 PM EST Surgery [place] [phone] Roland Gooden MD [facility] [place] [address] EGD, UPPER GI ENDOSCOPY (WRVU 2.09) 10/02/2024 1:00 PM EDT Office Visit Ophthalmology at [place] [phone] Juanpablo Hernandez MD [facility] [address] 10/21/2024 9:30 AM EDT Office Visit Internal Medicine at [address] [phone] Daryn Garrett MD [facility] [place] [address] 01/30/2025 1:30 PM EDT Laboratory Appointment Lab at [facility] Hematology Oncology [address] [place] [phone] 01/30/2025 3:[address] Scan at [place] [phone] Arturo Cordero MD [facility] [place] [address] 01/30/2025 4:15 PM EDT Office Visit Hematology [place] [phone] Arturo Cordero MD [facility] [place] [address] Scheduled Procedures Name Priority Associated Diagnoses Date/Ti [...] Only Mammo (09/22/2011 12:00 AM EDT) Narrative [facility] - 05/24/2019 9:45 PM EST This exam is auto-finalizing. It's purpose is for storage only. Luis E Narayan MD IMG FILM LIBRARY OR DERABLES Performing Organization Address City/State/[facility] Co de Phone Number [place], [place] documented in this encounter Visit Diagnoses Not on filedocumented in this encounter Care Teams Infant Toddler Lead Teacher Relationship Specialty Start Date End Date Brenda Canchola MD PCP - General 06/01/10 03/25/19 documented as of this encounter
--- OUTSIDE RECORDS SUMMARY | 2024-08-20 16:05 | XMS_ITS | Encounter Summary ---
Author Organization [facility] [place] [address] Care Team Providers Care Catalog Specialist Name Role Phone Brenda Canchola MD Primary Care Provider Unavaila ble Encounter Details Date Type Department Care Team (Late st Contact Info) Description 06/15/2010 2:35 PM EST Follow-[place] [address] Sterling Dubois MD Social History Tobacco Use Types Packs/Day [...] 1:00 PM EST Hospital Encounter [place] [phone] Roland Gooden MD [facility] [place] [address] 08/29/2024 1:00 PM EST - 08/29/2024 2:00 PM EST Surgery [place] [phone] Roland Gooden MD [facility] [place] [address] EGD, UPPER GI ENDOSCOPY (WRVU 2.09) 10/02/2024 1:00 PM EDT Office [place] [phone] Juanpablo Hernandez MD [facility] [place] [address] 10/21/2024 9:30 AM EDT Office Visit Internal Medicine at [place] [address] [place] [phone] Daryn Garrett MD [facility] [place] [address] 01/30/2025 1:30 PM EDT Laboratory Appointment Lab at [facility] Hematology Oncology [address] [place] [phone] 01/30/2025 3:[address] [place] [phone] Arturo Cordero MD [facility] DR HEMATOLOGY [place] [address] 01/30/2025 4:15 PM EDT Office Visit Hematology [place] [phone] Arturo Cordero MD [facility] DR HEMATOLOGY [place] [address] Scheduled Procedures Name Priority Associated Diagnoses Date/Ti me EGD, UPPER GI ENDOSCOPY (WRVU 2.09) Irritable bowel syndrome with constipation 08/29/2024 1:00 PM EST COLONOSCOPY, DIAGNOSTIC (WRVU 3.26) Irritable bowel syndrome with constipation 08/29/2024 1:00 PM EST documented as of this encounter Visit Diagnoses Not on filedocumented in this encounter Care Teams Catalog Specialist Relationship Specialty Start Date End Date Brenda Canchola MD PCP - General 06/01/10 03/25/19 documented as of this encounter
--- OUTSIDE RECORDS SUMMARY | 2024-08-20 16:05 | XMS_ITS | Encounter Summary ---
Author Organization [facility] [place] [address] Care Team Providers Care Clinical Services Assistant Name Role Phone Brenda Canchola MD Primary Care Provider Unavaila ble Reason for Visit * Reason Comments Follow-up neurocognitive impai rment Encounter Details Date Type Department Care Team (Late st Contact Info) Description 10/14/2010 3:00 PM EDT Follow[place] [phone] Chuy Barbosa MD [facility] [place] [address] Forgetfulness (Primary Dx) Discharge Disposition: Home Social [...] 1:00 PM EST Hospital Encounter Gastroenterology at [place] [phone] Roland Gooden MD [facility] [place] [address] 08/29/2024 1:00 PM EST - 08/29/2024 2:00 PM EST Surgery [place] [phone] Roland Gooden MD [facility] [place] [address] EGD, UPPER GI ENDOSCOPY (WRVU 2.09) 10/02/2024 1:00 PM EDT Office Visit [place] [phone] Juanpablo Hernandez MD [facility] [place] [address] 10/21/2024 9:30 AM EDT Office Visit Internal Medicine at [address] [place] [address] Daryn Garrett MD [facility] DR LILI [place] [address] 01/30/2025 1:30 PM EDT Laboratory Appointment Lab at [facility] [place] Oncology [address] [place] [phone] 01/30/2025 3:[address] [place] [phone] Arturo Cordero MD [facility] DR [place] [address] 01/30/2025 4:15 PM EDT Office Visit Hematology [place] [phone] Arturo Cordero MD [facility] DR [place] [address] Scheduled Procedures Name Priority Associated Diagnoses Date/Ti me EGD, UPPER GI ENDOSCOPY (WRVU 2.09) Irritable bowel syndrome with constipation 08/29/2024 1:00 PM EST COLONOSCOPY, DIAGNOSTIC (WRVU 3.26) Irritable bowel syndrome with constipation 08/29/2024 1:00 PM EST documented as of this encounter Visit Diagnoses Diagnosis Forgetfulness- Primary Other general symptoms Irritable bowel syndrome with constipation Irritable bowel syndrome documented in this encounter Care Teams Clinical Services Assistant Relationship Specialty Start Date End Date Brenda Canchola MD PCP - General 06/01/10 03/25/19 documented as of this encounter
--- OUTSIDE RECORDS SUMMARY | 2024-08-20 16:05 | XMS_ITS | Encounter Summary ---
Author Organization [facility] [place] [address] Care Team Providers Care Senior Cobol Developer Name Role Phone Brenda Canchola MD Primary Care Provider Unavaila ble Encounter Details Date Type Department Care Team (Late st Contact Info) Description 06/15/2010 2:40 PM EST Follow-[place] [address] Noreen Brambila MD [facility] [place] [address] Social History Tobacco Use Types Packs/Day Years Used Date Smoking Tobacco: Never Assessed Sex and Gender Information Value Date Recorded Sex Assigned at Not on file Gender Identity Not on file Sexual Orientation Not on file documented as of this encounter Plan of Treatment Upcoming Encounters Date Type Department Care Team (Latest Contact Info) Description 08/29/2024 1:00 PM EST Hospital Encounter [place] [phone] Roland Gooden MD [facility] [place] [address] 08/29/2024 1:00 PM EST - 08/29/2024 2:00 PM EST Surgery [place] [phone] Roland Gooden MD [facility] [place] [address] EGD, UPPER GI ENDOSCOPY (WRVU 2.09) 10/02/2024 1:00 PM EDT Office Visit Ophthalmology at [place] [phone] Juanpablo Hernandez MD [facility] [place] [address] 10/21/2024 9:30 AM EDT Office Visit Internal Medicine at [address] [place] [phone] Daryn Garrett MD [facility] DR LILI [place] [address] 01/30/2025 1:30 PM EDT Laboratory Appointment Lab at [facility] Hematology Oncology [address] [place], [place] [phone] 01/30/2025 3:[address] Scan at [place] [phone] Arturo Cordero MD [facility] [place] [address] 01/30/2025 4:15 PM EDT Office Visit Hematology and Oncology at [place] [phone] Arturo Cordero MD [facility] [place] [address] Scheduled Procedures Name Priority Associated Diagnoses Date/Ti me EGD, UPPER GI ENDOSCOPY (WRVU 2.09) Irritable bowel syndrome with constipation 08/29/2024 1:00 PM EST COLONOSCOPY, DIAGNOSTIC (WRVU 3.26) Irritable bowel syndrome with constipation 08/29/2024 1:00 PM EST documented as of this encounter Visit Diagnoses Not on filedocumented in this encounter Care Teams Senior Cobol Developer Relationship Specialty Start Date End Date Brenda Canchola MD PCP - General 06/01/10 03/25/19 documented as of this encounter
--- OUTSIDE RECORDS SUMMARY | 2024-08-20 16:05 | XMS_ITS | Encounter Summary ---
Author Organization [facility] [place] [address] Care Team Providers Care Pullman Car Clerk Name Role Phone Unavailable Primary Care Provider Unavailabl e Encounter Details Date Type Department Care Team (Late st Contact Info) Description 03/09/2009 Ancillary Procedure Radiology Library at [facility] [place] [address] Luis E Narayan MD [facility] DR LILI WALKER-[place] [address] Social History Tobacco Use Types Packs/Day Years Used Date Smoking Tobacco: Never Assessed Sex and Gender Information Value Date Recorded Sex Assigned at Not on file Gender Identity Not on file Sexual Orientation Not on file documented as of this encounter Plan of Treatment Upcoming Encounters Date Type Department Care Team (Latest Contact Info) Description 08/29/2024 1:00 PM EST Hospital Encounter [place] [phone] Roland Gooden MD [facility] [place] [address] 08/29/2024 1:00 PM EST - 08/29/2024 2:00 PM EST Surgery [place] [phone] Roland Gooden MD [facility] [place] [address] EGD, UPPER GI ENDOSCOPY (WRVU 2.09) 10/02/2024 1:00 PM EDT Office Visit Ophthalmology at [place] [phone] Juanpablo Hernandez MD [facility] [place] [address] 10/21/2024 9:30 AM EDT Office Visit Internal Medicine at [address] [place] [phone] Daryn Garrett MD [facility] DR LILI WALKER - [place] [address] 01/30/2025 1:30 PM EDT Laboratory Appointment Lab [place] [facility] [place] On[place] [address] [place] [phone] 01/30/2025 3:[address] [place] [address] Arturo Cordero MD [facility] DR HEMATOLOGY [place] [address] 01/30/2025 4:15 PM EDT Office Visit Hematology [place] [address] Arturo Cordero MD [facility] HEMATOLOGY [place] [address] Scheduled Procedures Name Priority Associated Diagnoses Date/Ti [...] Only Mammo (03/09/2009 12:00 AM EDT) Narrative RAD - 05/24/2019 9:41 PM EST This exam is auto-finalizing. It's purpose is for storage only. Luis E Narayan MD IMG FILM LIBRARY OR DERABLES Performing Organization Address City/State/[facility] Co de Phone Number [place], [place] documented in this encounter Visit Diagnoses Not on filedocumented in this encounter
--- OUTSIDE RECORDS SUMMARY | 2024-08-20 16:05 | XMS_ITS | Encounter Summary ---
Author Organization [facility] [place] [address] Care Team Providers Care Bit Grinder Name Role Phone Brenda Canchola MD Primary Care Provider Unavaila ble Encounter Details Date Type Department Care Team (Late st Contact Info) Description 03/18/2019 Ancillary Procedure Radiology Library at [facility] [place] [phone] Luis E Narayan MD [facility] DR LILI [place] [address] Social History Tobacco Use Types Packs/Day Years [...] 1:00 PM EST Hospital Encounter [place] [phone] Roland Gooden MD [facility] [place]STRO[place] [address] 08/29/2024 1:00 PM EST - 08/29/2024 2:00 PM EST Surgery [place] [phone] Roland Gooden MD [facility] [place] [address] EGD, UPPER GI ENDOSCOPY (WRVU 2.09) 10/02/2024 1:00 PM EDT Office Visit Ophthalmology at [place] [phone] Juanpablo Hernandez MD [facility] [place] [address] 10/21/2024 9:30 AM EDT Office Visit Internal Medicine at [address] [phone] Daryn Garrett MD [facility] [place] [address] 01/30/2025 1:30 PM EDT Laboratory Appointment Lab at [facility] Hematology Oncology [address] [place] [address] [phone] 01/30/2025 3:[address] Scan at [place] [phone] Arturo Cordero MD [facility] [place] [address] 01/30/2025 4:15 PM EDT Office Visit Hematology [place] [phone] Arturo Cordero MD [facility] [place] [address] Scheduled Procedures Name Priority Associated Diagnoses Date/Ti [...] Ultrasound Study (03/18/2019 12:00 AM EDT) Narrative [facility] - 03/28/2019 11:02 AM EDT This exam is auto-finalizing. It's purpose is for storage only. Luis E Narayan MD IMG FILM LIBRARY OR DERABLES Performing Organization Address City/State/[facility] Co de Phone Number [place], [place] documented in this encounter Visit Diagnoses Not on filedocumented in this encounter Care Teams Bit Grinder Relationship Specialty Start Date End Date Brenda Canchola MD PCP - General 06/01/10 03/25/19 documented as of this encounter
--- OUTSIDE RECORDS SUMMARY | 2024-08-20 16:05 | XMS_ITS | Encounter Summary ---
Author Organization [facility] [place] [address] Care Team Providers Care Administrative Services Coordinator Name Role Phone Brenda Canchola MD Primary Care Provider Unavaila ble Encounter Details Date Type Department Care Team (Late st Contact Info) Description 09/15/2011 Ancillary Procedure Radiology Library at [facility] [place] [phone] Luis E Narayan MD [facility] DR LILI WALKER-[place] [address] Social History Tobacco Use Types Packs/Day Years [...] EST Hospital Encounter [place] [phone] Roland Gooden MD [facility] [place] [address] 08/29/2024 1:00 PM EST - 08/29/2024 2:00 PM EST [place] [phone] Roland Gooden MD [facility] [place] [address] EGD, UPPER GI ENDOSCOPY (WRVU 2.09) 10/02/2024 1:00 PM EDT Office Visit Ophthalmology at [place] [phone] Juanpablo Hernandez MD [facility] [place] [address] 10/21/2024 9:30 AM EDT Office Visit Internal Medicine at [address] [phone] Daryn Garrett MD [facility] [place] [address] 01/30/2025 1:30 PM EDT Laboratory Appointment Lab [place] [facility] [place]ology Oncology [address] [place] [address] [phone] 01/30/2025 3:[address] Scan at [place] [phone] Arturo Cordero MD [facility] HEMATOLOGY [place] [address] 01/30/2025 4:15 PM EDT Office Visit Hematology [place] [phone] Arturo Cordero MD [facility] HEMATOLOGY [place] [address] Scheduled Procedures Name Priority Associated Diagnoses Date/Ti [...] Only Mammo (09/15/2011 12:00 AM EST) Narrative [facility][NOTE 3] - 05/24/2019 9:40 PM EST This exam is auto-finalizing. It's purpose is for storage only. Luis E Narayan MD IMG FILM LIBRARY OR DERABLES Performing Organization Address City/State/[facility] Co de Phone Number [place], [place] documented in this encounter Visit Diagnoses Not on filedocumented in this encounter Care Teams Administrative Services Coordinator Relationship Specialty Start Date End Date Brenda Canchola MD PCP - General 06/01/10 03/25/19 documented as of this encounter
--- OUTSIDE RECORDS SUMMARY | 2024-08-20 16:05 | XMS_ITS | Encounter Summary ---
Author Organization [facility] [place] [address] Care Team Providers Care Financial Processing Clerk Name Role Phone Brenda Canchola MD Primary Care Provider Unavaila ble Encounter Details Date Type Department Care Team (Late st Contact Info) Description 01/21/2019 Ancillary Procedure Radiology Library at [facility] [place] [phone] Luis E Narayan MD [facility] DR LILI WALKER-[place] [address] Social History Tobacco Use Types Packs/Day Years [...] 1:00 PM EST Hospital Encounter [place] [phone] Roland Gooden MD [facility] GASTROENTER[place] [address] 08/29/2024 1:00 PM EST - 08/29/2024 2:00 PM EST [place] [phone] Roland Gooden MD [facility] [place] [address] EGD, UPPER GI ENDOSCOPY (WRVU 2.09) 10/02/2024 1:00 PM EDT Office Visit Ophthalmology at [place] [phone] Juanpablo Hernandez MD [facility] [place] [address] 10/21/2024 9:30 AM EDT Office Visit Internal Medicine at [address] [phone] Daryn Garrett MD [facility] [place] [address] 01/30/2025 1:30 PM EDT Laboratory Appointment Lab at [facility] Hematology Oncology [address] [place] [address] [phone] 01/30/2025 3:[address] Scan at [place] [phone] Arturo Cordero MD [facility] HEMATOLOGY [place] [address] 01/30/2025 4:15 PM EDT Office Visit Hematology [place] [phone] Arturo Cordero MD [facility] HEMATOLOGY [place] [address] Scheduled Procedures Name Priority Associated Diagnoses Date/Ti [...] DX Chest (01/21/2019 12:00 AM EDT) Narrative [facility] - 05/24/2019 9:38 PM EST This exam is auto-finalizing. It's purpose is for storage only. Luis E Narayan MD IMG FILM LIBRARY OR DERABLES Performing Organization Address City/State/[facility] Co de Phone Number [place], [place] documented in this encounter Visit Diagnoses Not on filedocumented in this encounter Care Teams Financial Processing Clerk Relationship Specialty Start Date End Date Brenda Canchola MD PCP - General 06/01/10 03/25/19 documented as of this encounter
--- OUTSIDE RECORDS SUMMARY | 2024-08-20 16:05 | XMS_ITS | Encounter Summary ---
Author Organization [facility] [place] [address] Care Team Providers Care Logistics Officer Name Role Phone Brenda Canchola MD Primary Care Provider Unavaila ble Encounter Details Date Type Department Care Team (Late st Contact Info) Description 03/09/2016 Ancillary Procedure Radiology Library at [facility] [place] [phone] Luis E Narayan MD [facility] DR LILI [place] [address] Social History Tobacco Use Types Packs/Day Years [...] 1:00 PM EST Hospital Encounter [place] [phone] Roland Gooden MD [facility] GASTROENTEROLOG [place] [address] 08/29/2024 1:00 PM EST - 08/29/2024 2:00 PM EST Surgery [place] [phone] Roland Gooden MD [facility] [place] [address] EGD, UPPER GI ENDOSCOPY (WRVU 2.09) 10/02/2024 1:00 PM EDT Office Visit Ophthalmology at [place] [phone] Juanpablo Hernandez MD [facility] [place] [address] 10/21/2024 9:30 AM EDT Office Visit Internal Medicine at [address] [phone] Drayn Garrett MD [facility] [place] [address] 01/30/2025 1:30 PM EDT Laboratory Appointment Lab at [facility] Hematology Oncology [address] [place] [address] [phone] 01/30/2025 3:[address] Scan at [place] [phone] Arturo Cordero MD [facility] [place] [address] 01/30/2025 4:15 PM EDT Office Visit Hematology [place] [phone] Arturo Cordero MD [facility] [place] [address] Scheduled Procedures Name Priority Associated [...] Only Mammo (03/09/2016 12:00 AM EDT) Narrative [facility] - 05/24/2019 9:39 PM EST This exam is auto-finalizing. It's purpose is for storage only. Luis E Narayan MD IMG FILM LIBRARY OR DERABLES Performing Organization Address City/State/[facility] Co de Phone Number [place], [place] documented in this encounter Visit Diagnoses Not on filedocumented in this encounter Care Teams Logistics Officer Relationship Specialty Start Date End Date Brenda Canchola MD PCP - General 06/01/10 03/25/19 documented as of this encounter
--- OUTSIDE RECORDS SUMMARY | 2024-08-20 16:05 | XMS_ITS | Encounter Summary ---
Author Organization [facility] [place] [address] Care Team Providers Care Farm Truck Driver Name Role Phone Brenda Canchola MD Primary Care Provider Unavaila ble Encounter Details Date Type Department Care Team (Late st Contact Info) Description 01/22/2019 Ancillary Procedure Radiology Library at [facility] [place] [phone] Luis E Narayan MD [facility] DR LILI [place] [address] Social History Tobacco Use Types Packs/Day Years [...] 1:00 PM EST Hospital Encounter [place] [phone] Roland Gooden MD [facility] GASTRO[place] [address] 08/29/2024 1:00 PM EST - 08/29/2024 2:00 PM EST Surgery [place] [phone] Roland Gooden MD [facility] [place] [address] EGD, UPPER GI ENDOSCOPY (WRVU 2.09) 10/02/2024 1:00 PM EDT Office Visit Ophthalmology at [place] [phone] Juanpablo Hernandez MD [facility] [place] [address] 10/21/2024 9:30 AM EDT Office Visit Internal Medicine at [address] [phone] Daryn Garrett MD [facility] [place] [address] 01/30/2025 1:30 PM EDT Laboratory Appointment Lab at [facility] [place] Oncology [address] [place] [address] [phone] 01/30/2025 3:[address] Scan at [place] [phone] Arturo Cordero MD [facility] [place] [address] 01/30/2025 4:15 PM EDT Office Visit Hematology [place] [phone] Arturo Cordero MD [facility] [place] [address] Scheduled Procedures Name Priority Associated Diagnoses Date/Ti [...] DX Chest (01/22/2019 12:00 AM EDT) Narrative [facility] - 03/28/2019 10:59 AM EDT This exam is auto-finalizing. It's purpose is for storage only. Luis E Narayan MD IMG FILM LIBRARY OR DERABLES [place], [place] documented in this encounter Visit Diagnoses Not on filedocumented in this encounter Care Teams Farm Truck Driver Relationship Specialty Start Date End Date Brenda Canchola MD PCP - General 06/01/10 03/25/19 documented as of this encounter
--- OUTSIDE RECORDS SUMMARY | 2024-08-20 16:05 | XMS_ITS | Encounter Summary ---
Author Organization [facility] [place] [address] Care Team Providers Care Plant Controls Specialist Name Role Phone Brenda Canchola MD Primary Care Provider Unavaila ble Encounter Details Date Type Department Care Team (Late st Contact Info) Description 12/14/2012 Ancillary Procedure Radiology Library at [facility] [place] [phone] Luis E Narayan MD [facility] DR LILI [place] [address] Social History Tobacco Use Types Packs/Day Years [...] 1:00 PM EST Hospital Encounter [place] [phone] Roland Gooden MD [facility] GASTROENTER[place] [address] 08/29/2024 1:00 PM EST - 08/29/2024 2:00 PM EST Surgery [place] [phone] Roland Gooden MD [facility] [place] [address] EGD, UPPER GI ENDOSCOPY (WRVU 2.09) 10/02/2024 1:00 PM EDT Office Visit Ophthalmology at [place] [phone] Juanpablo Hernandez MD [facility] [place] [address] 10/21/2024 9:30 AM EDT Office Visit Internal Medicine at [address] [phone] Daryn Garrett MD [facility] [place] [address] 01/30/2025 1:30 PM EDT Laboratory Appointment Lab at [facility] Hematology Oncology [address] [place] [address] [phone] 01/30/2025 3:[address] Scan at [place] [phone] Arturo Cordero MD [facility] [place] [address] 01/30/2025 4:15 PM EDT Office Visit Hematology [place] [phone] Arturo Cordero MD [facility] [place] [address] Scheduled Procedures Name Priority Associated Diagnoses Date/Ti [...] Only Mammo (12/14/2012 12:00 AM EDT) Narrative [facility] - 05/24/2019 9:36 PM EST This exam is auto-finalizing. It's purpose is for storage only. Luis E Narayan MD IMG FILM LIBRARY OR DERABLES Performing Organization Address City/State/[facility] Co de Phone Number [place], [place] documented in this encounter Visit Diagnoses Not on filedocumented in this encounter Care Teams Plant Controls Specialist Relationship Specialty Start Date End Date Brenda Canchola MD PCP - General 06/01/10 03/25/19 documented as of this encounter
--- OUTSIDE RECORDS SUMMARY | 2024-08-20 16:05 | XMS_ITS | Encounter Summary ---
[place] [address] Care Team Providers Care General Store Manager Name Role Phone Brenda Renee MD Primary Care Provider Unavaila ble Encounter Details Date Type Department Care Team (Latest Contact Info) Description 07/22/2013 3:11 PM EST - 07/22/2013 11:59 PM [facility] Hospital [place] [address] CLINIC, Brenda [place] MD Discharge Disposition: Home Social History Tobacco Use [...] Gramajo AGE: 52 y.o. : 1960 Female [phone] (home) Telephone Information: PCP RECYCLING SPECIALIST BRENDA RENEE MD None Allergies Allergen Reactions ??? Codeine Phosphate Nausea And Vomiting ??? Erythromycin Base Nausea Only ??? Nsaids (Non-Steroidal Anti-Inflammatory Drug) Nausea And Vomiting Date/Time of call: July 19, 2013/1:37 PM/ PREVIOUS MRI SCAN? Yes, many [place] [facility] HEIGHT: 63 1/2 WEIGHT: 270# (confirmed large [...] HR. BEFORE SCHEDULED SCAN AND HAVE A WET PROCESS TECHNICIAN AVAILABLE. PT STATED TO MAJOR ASSEMBLY LINEMAN THAT THE SEDATION WAS EFFECTIVE FOR SCAN: Y N COMMENTS: This patient has been informed that they require a tow truck driver to drive them home after this procedure. In the absence of a tow truck driver, IR will not be able to [...] 1:00 PM EST Hospital Encounter Gastroenterology at [place] [phone] Roland Gooden MD [facility] [place] [address] 08/29/2024 1:00 PM EST - 08/29/2024 2:00 PM EST Surgery Gastroenterology at [place] [phone] Roland Gooden MD [facility] [place] [address] EGD, UPPER GI ENDOSCOPY (WRVU 2.09) 10/02/2024 1:00 PM EDT Office Visit Ophthalmology at [place] [phone] Juanpablo Hernandez MD [facility] [place] [address] 10/21/2024 9:30 AM EDT Office Visit Internal Medicine at [facility] [address] [place] [address] Daryn Garrett MD [facility] DR [facility] [place] [address] 01/30/2025 1:30 PM EDT Laboratory Appointment Lab at [facility] Hematology Oncology [address] [place] [phone] 01/30/2025 3:[address] [place] [phone] Arturo Cordero MD [facility] [place] [address] 01/30/2025 4:15 PM EDT Office Visit Hematology [place] [address] Arturo Cordero MD [facility] [place] [address] Scheduled Procedures Name Priority Associated Diagnoses Date/Ti [...] in the context of the clinical situation. (Reference-Miguelangelk et al, Spine 2001) Findings: (prevalence in [...] of the clinical situation. (Reference-Patriciavik et al, [id number]) Findings: (prevalence in patients without low back pain), Diskdegeneration (decreased T2 signal, height loss, bulge) (91%), Disk T2-signal loss(83%), Disk height loss (56%), Disk bulge (64%), Disk protrusion (32%), Annular fissure (38%). Film and interpretation reviewed by the attending Brenda Renee MD IMG MRI ORDERABLES documented in this encounter Visit Diagnoses Not on filedocumented in this encounter Care Teams General Store Manager Relationship Specialty Start Date End Date Brenda Renee MD PCP - General 06/01/10 03/25/19 documented as of this encounter
--- OUTSIDE RECORDS SUMMARY | 2024-08-20 16:05 | XMS_ITS | Encounter Summary ---
Author Organization [facility] [place] [address] Care Team Providers Care Associate Manager Affiliate Marketing Name Role Phone Brenda Canchola MD Primary Care Provider Unavaila ble Encounter Details Date Type Department Care Team (Late st Contact Info) Description 07/14/2010 2:30 PM EST [place] [phone] Chuy Barbosa MD [facility] [place] [address] Discharge Disposition: Home Social History Tobacco Use [...] 1:00 PM EST Hospital Encounter [place] [phone] Roland Gooden MD [facility] [place] [address] 08/29/2024 1:00 PM EST - 08/29/2024 2:00 PM EST [place] [phone] Roland Gooden MD [facility] [place] [address] EGD, UPPER GI ENDOSCOPY (WRVU 2.09) 10/02/2024 1:00 PM EDT Office Visit Ophthalmology at [place] [phone] Juanpablo Hernandez MD [facility] [place] [address] 10/21/2024 9:30 AM EDT Office Visit Internal Medicine at [address] [place] [phone] Daryn Garrett MD [facility] [place] [address] 01/30/2025 1:30 PM EDT Laboratory Appointment Lab at [facility] Hematology Oncology [address] [place] [phone] 01/30/2025 3:[address] Scan at [place] [phone] Arturo Cordero MD [facility] [place] [address] 01/30/2025 4:15 PM EDT Office Visit Hematology [place] [phone] Arturo Cordero MD [facility] [place] [address] Scheduled Procedures Name Priority Associated Diagnoses Date/Ti wv EGD, UPPER GI ENDOSCOPY (WRVU 2.09) Irritable bowel syndrome with constipation 08/29/2024 1:00 PM EST COLONOSCOPY, DIAGNOSTIC (WRVU 3.26) Irritable bowel syndrome with constipation 08/29/2024 1:00 PM EST documented as of this encounter Visit Diagnoses Not on filedocumented in this encounter Care Teams Associate Manager Affiliate Marketing Relationship Specialty Start Date End Date Brenda Canchola MD PCP - General 06/01/10 03/25/19 documented as of this encounter
--- OUTSIDE RECORDS SUMMARY | 2024-08-20 16:05 | XMS_ITS | Encounter Summary ---
[place] [address] Care Team Providers Care Bearing Ring Assembler Name Role Phone Brenda Canchola MD Primary Care Provider Unavaila ble Reason for Visit * Reason Comments Cognitive Decline Neuropsychological T esting Encounter Details Date Type Department Care Team (Late st Contact Info) Description 10/14/2010 9:00 AM EDT Office Visit Psychiatry [place] [address] Kelsey Castrejon, PhD Cognitive deficits (Primary Dx) Social History Tobacco [...] CONFIDENTIAL NEUROPSYCHOLOGICAL EVALUATION Patient Name: Alize Sorensen#: [id number] Date of Evaluation: 10/14/2010 Sex: Female Date of : 1960 Age: 49 Education: 12 years Lateral Dominance: Right 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 She was referred to assess [...] on 10/18/2007, Ms. Gramajo was transferred to [facility] from [facility] with non-ST elevated myocardial infarction, after [...] services. 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 Past medical history is otherwise remarkable for hypertension, hyperlipidemia, chronic back pain, and obstructive sleep apnea (TITO). Regarding her TITO, polysomnography from the fall showed anapnea/hypopnea index in the moderate range [...] was tested as an outpatient at the [facility] Neuropsychological Laboratory. She was alert and oriented [...] Comprehension and Cookie Theft Picture (from BDAE) Sachse Naming Test (BNT) Wide Range Achievement Test [...] System (D-KEFS): Raw Scores Range (Scaled Scores) [place] Making: Visual Scanning 15?? 0 err (13) [...] Trials) 6/6 Within Normal Limits Perseverative Errors 12/98 Average Failure to Maintain Set 1 Within Normal Limits MEMORY AND LEARNING: Nikia Memory Scale - IV (WMS-IV): Raw Scores Range (Scaled Scores) Logical Memory I 25/50 (10) Average II 23/50 (11) Average Recognition 26/30 Within Normal Limits [place] Verbal Learning Test - II (CVLT-II): Raw Scores Range Acquisition 53/80 Average (9-13-63-12-11) Short-Delay Free Recall 8/16 Low Average Short-Delay [...] Raw Scores Range Sentence Comprehension (from BDAE): 05/21 Within Normal Limits Sachse Naming Test (BNT): 50/60 Low Average Wide [...] her to utilize some type of daily marine air ground task force planners/organizer. In addition, feedback about the results of [...] Fellow Board Certified in Clinical Neuropsychology Neuropsychology Wellness Nurse RnConservation Workermedical record assistant Director, Neuropsychology Program This report was prepared by Deuce Toledo Psy.D., Postdoctoral Fellow in Neuropsychology, under the supervision of Kelsey Castrejon, Ph.D., ABPP. documented in this encounter Plan of Treatment Upcoming Encounters Date Type Department Care Team (Latest Contact Info) Description 08/29/2024 1:00 PM EST Hospital Encounter Gastroenterology at [place] [phone] Roland Gooden MD [facility] [place] [address] 08/29/2024 1:00 PM EST - 08/29/2024 2:00 PM EST Surgery Gastroenterology at [place] [phone] Roland Gooden MD [facility] [place] [address] EGD, UPPER GI ENDOSCOPY (WRVU 2.09) 10/02/2024 1:00 PM EDT Office [place] [phone] Juanpablo Hernandez MD [facility] [place] [address] 10/21/2024 9:30 AM EDT Office Visit Internal Medicine at [place] [address] [place] [address] Daryn Garrett MD [facility] DR [place] [address] 01/30/2025 1:30 PM EDT Laboratory Appointment Lab at [facility] Hematology Oncology [address] [place], [place] [phone] 01/30/2025 3:[address] [place] [phone] Arturo Cordero MD [facility] [place] [address] 01/30/2025 4:15 PM EDT Office Visit Hematology [place] [phone] Arturo Cordero MD [facility] [place] [address] Scheduled Procedures Name Priority Associated Diagnoses Date/Ti me EGD, UPPER GI ENDOSCOPY (WRVU 2.09) Irritable bowel syndrome with constipation 08/29/2024 1:00 PM EST COLONOSCOPY, DIAGNOSTIC (WRVU 3.26) Irritable bowel syndrome with constipation 08/29/2024 1:00 PM EST documented as of this encounter Visit Diagnoses Diagnosis Cognitive deficits- Primary Unspecified persistent mental disorders due to conditions classified elsewhere Irritable bowel syndrome with constipation Irritable bowel syndrome documented in this encounter Care Teams Bearing Ring Assembler Relationship Specialty Start Date End Date Brenda Canchola MD PCP - General 06/01/10 03/25/19 documented as of this encounter
--- OUTSIDE RECORDS SUMMARY | 2024-08-20 16:05 | XMS_ITS | Encounter Summary ---
Author Organization [facility] [place] [address] Care Team Providers Care Air Traffic Instructor Name Role Phone Brenda Canchola MD Primary Care Provider Unavaila ble Encounter Details Date Type Department Care Team (Late st Contact Info) Description 01/31/2014 Ancillary Procedure Radiology Library at [facility] [place] [phone] Luis E Narayan MD [facility] DR LILI [place] [address] Social History Tobacco Use Types Packs/Day Years [...] PM EST Hospital Encounter [place] [phone] Roland Gooden MD [facility] GASTROENTER[place] [address] 08/29/2024 1:00 PM EST - 08/29/2024 2:00 PM EST Surgery [place] [phone] Roland Gooden MD [facility] [place] [address] EGD, UPPER GI ENDOSCOPY (WRVU 2.09) 10/02/2024 1:00 PM EDT Office Visit Ophthalmology at [place] [phone] Juanpablo Hernandez MD [facility] [place] [address] 10/21/2024 9:30 AM EDT Office Visit Internal Medicine at [address] [phone] Daryn Garrett MD [facility] [place] [address] 01/30/2025 1:30 PM EDT Laboratory Appointment Lab at [facility] Hematology Oncology [address] [place] [phone] 01/30/2025 3:[address] Scan at [place] [phone] Arturo Cordero MD [facility] [place] [address] 01/30/2025 4:15 PM EDT Office Visit Hematology [place] [phone] Arturo Cordero MD [facility] [place] [address] Scheduled Procedures Name Priority Associated Diagnoses Date/Ti [...] Only Mammo (01/31/2014 12:00 AM EDT) Narrative [facility] - 05/24/2019 9:46 PM EST This exam is auto-finalizing. It's purpose is for storage only. Luis E Narayan MD IMG FILM LIBRARY OR DERABLES Performing Organization Address City/State/[facility] Co de Phone Number [place], [place] documented in this encounter Visit Diagnoses Not on filedocumented in this encounter Care Teams Air Traffic Instructor Relationship Specialty Start Date End Date Brenda Canchola MD PCP - General 06/01/10 03/25/19 documented as of this encounter
--- OUTSIDE RECORDS SUMMARY | 2024-08-20 16:05 | XMS_ITS | Encounter Summary ---
Author Organization [facility] [place] [address] Care Team Providers Care Cook Helper Name Role Phone Unavailable Primary Care Provider Unavailabl e Encounter Details Date Type Department Care Team (Late st Contact Info) Description 03/11/2009 Ancillary Procedure Radiology Library at [facility] [place] [address] Luis E Narayan MD [facility] DR [facility] [place] [address] Social History Tobacco Use Types Packs/Day Years Used Date Smoking Tobacco: Never Assessed Sex and Gender Information Value Date Recorded Sex Assigned at Not on file Gender Identity Not on file Sexual Orientation Not on file documented as of this encounter Plan of Treatment Upcoming Encounters Date Type Department Care Team (Latest Contact Info) Description 08/29/2024 1:00 PM EST Hospital Encounter [place] [phone] Roland Gooden MD [facility] [place] [place] [address] 08/29/2024 1:00 PM EST - 08/29/2024 2:00 PM EST Surgery [place] [phone] Roland Gooden MD [facility] [place] [address] EGD, UPPER GI ENDOSCOPY (WRVU 2.09) 10/02/2024 1:00 PM EDT Office Visit Ophthalmology at [place] [phone] Juanpablo Hernandez MD [facility] [place] [address] 10/21/2024 9:30 AM EDT Office Visit Internal Medicine at [address] [place] [phone] Daryn Garrett MD [facility] [place] [address] 01/30/2025 1:30 PM EDT Laboratory Appointment Lab at [facility] Hematology Oncology [address] [place] [phone] 01/30/2025 3:[address] [place] [address] Arturo Cordero MD [facility] [place] [address] 01/30/2025 4:15 PM EDT Office Visit Hematology [place] [address] Arturo Cordero MD [facility] [place] [address] Scheduled Procedures Name Priority Associated Diagnoses Date/Ti [...] Only Mammo (03/11/2009 12:00 AM EDT) Narrative RAD - 05/24/2019 9:42 PM EST This exam is auto-finalizing. It's purpose is for storage only. Luis E Narayan MD IMG FILM LIBRARY OR DERABLES Performing Organization Address City/State/[facility] Co de Phone Number [place], [place] documented in this encounter Visit Diagnoses Not on filedocumented in this encounter
--- OUTSIDE RECORDS SUMMARY | 2024-08-20 16:05 | XMS_ITS | Encounter Summary ---
Author Organization [facility] [place] [address] Care Team Providers Care International Exchange Coordinator Name Role Phone Unavailable Primary Care Provider Unavailabl e Encounter Details Date Type Department Care Team (Late st Contact Info) Description 03/10/2010 Ancillary Procedure Radiology Library at [facility] [address] Luis E Narayan MD [facility] DR LILI [facility] [address] Social History Tobacco Use Types Packs/Day Years Used Date Smoking Tobacco: Never Assessed Sex and Gender Information Value Date Recorded Sex Assigned at Not on file Gender Identity Not on file Sexual Orientation Not on file documented as of this encounter Plan of Treatment Upcoming Encounters Date Type Department Care Team (Latest Contact Info) Description 08/29/2024 1:00 PM EST Hospital Encounter [place] [phone] Roland Gooden MD [facility] [place] [address] 08/29/2024 1:00 PM EST - 08/29/2024 2:00 PM EST Surgery [place] [phone] Roland Gooden MD [facility] [place] [address] EGD, UPPER GI ENDOSCOPY (WRVU 2.09) 10/02/2024 1:00 PM EDT Office Visit Ophthalmology at [place] [phone] Juanpablo Hernandez MD [facility] [address] 10/21/2024 9:30 AM EDT Office Visit Internal Medicine at [address] [place] [phone] Daryn Garrett MD [facility] DR LILI [place] [address] 01/30/2025 1:30 PM EDT Laboratory Appointment Lab at [facility] Hematology Oncology [address] [place] [phone] 01/30/2025 3:[address] [place] [address] Arturo Cordero MD [facility] DR HEMATOLOGY [place] [address] 01/30/2025 4:15 PM EDT Office Visit Hematology [place] [address] Arturo Cordero MD [facility] [place]AT[place] [address] Scheduled Procedures Name Priority Associated Diagnoses Date/Ti [...] Only Mammo (03/10/2010 12:00 AM EDT) Narrative RAD - 05/24/2019 9:43 PM EST This exam is auto-finalizing. It's purpose is for storage only. Luis E Narayan MD IMG FILM LIBRARY OR DERABLES Performing Organization Address City/State/[facility] Co de Phone Number [place], [place] documented in this encounter Visit Diagnoses Not on filedocumented in this encounter
--- OUTSIDE RECORDS SUMMARY | 2024-08-20 16:05 | XMS_ITS | Encounter Summary ---
[place] [address] Care Team Providers Care Machine Pack Assembler Name Role Phone Brenda Canchola MD Primary Care Provider Unavaila ble Reason for Visit * Reason Comments Anxiety Encounter Details Date Type Department Care Team (Late st Contact Info) Description 02/14/2019 9:50 PM EDT - 02/15/2019 12:12 AM [place] [address] Tony Monique MD Anxiety Discharge Disposition: Home Social History Tobacco [...] sent through Care Everywhere. * Anxiety Disorder (Iraqi) * Generalized Anxiety Disorder: General Info (Iraqi) documented in this encounter Medications at Time of Discharge Medication Sig Dispensed Refills Start Date End Date amLODIPine (NORVASC) 5 mg Tablet Take 5 mg by mouth daily. 4 02/12/2019 04/09/2019 simvastatin (ZOCOR) 10 mg Tablet Take 10 mg by mouth daily. 4 11/26/2018 04/09/2019 fluticasone propionate (FLONASE) 50 mcg/actuation Dorothy, Suspension 50 sprays by Each Nare route [...] as recent psychogenic polydipsia with admission to [facility] and was discharged roughly 1 week [...] with anxiety. Patient was recently admitted to [facility] in mid-January with community acquired pneumonia. 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 She was discharged ~1wk ago. Patient reports that she has edema with bilateral lower extremity swelling, and that was her primary concern for coming into the emergency department tonight. She was also concerned because her home blood pressure monitor was not working. She had bilateral lower extremity swelling during her stay at [facility] last week. She was given a [...] 1:00 PM EST Hospital Encounter [place] [address] Roland Gooden MD [facility] [address] 08/29/2024 1:00 PM EST - 08/29/2024 2:00 PM EST Surgery [place] [address] Roland Gooden MD [facility] [place] [address] EGD, UPPER GI ENDOSCOPY (WRVU 2.09) 10/02/2024 1:00 PM EDT Office Visit Ophthalmology at [place] [phone] Juanpablo Hernandez MD [facility] [place] [address] 10/21/2024 9:30 AM EDT Office Visit Internal Medicine at [address] [phone] Daryn Garrett MD [facility] [place] [address] 01/30/2025 1:30 PM EDT Laboratory Appointment Lab at [facility] Hematology Oncology [address] [place] [phone] 01/30/2025 3:[address] [place] [address] Arturo Cordero MD [facility] [place] [address] 01/30/2025 4:15 PM EDT Office Visit Hematology [place] [address] Arturo Cordero MD [facility] HEMATOLOGY [place] [address] Scheduled Procedures Name Priority Associated Diagnoses Date/Ti [...] (02/14/2019 10:54 PM EDT) Plat estimate Normal [facility] RBC Morphology Normal [facility] Blood specimen (specimen) 02/14/2019 10:54 PM EDT 02/14/2019 11:09 PM EDT Narrative Resulting Agency Comment Spec In Lab Yahir Okeefe MD HEMATOLOGY ORDERABL ES [facility] [place] [address] * Gold Tube HOLD (02/14/2019 10:54 PM EDT) Gold Hold Sample in lab. [facility] Blood specimen (specimen) Venous Draw / Unknown 02/14/2019 10:54 PM EDT 02/14/2019 11:09 PM EDT Yahir Okeefe MD CHEMISTRY ORDERABLE S Performing Organization Address City/[facility]/ZIP Co de Phone Number [facility] [place] [address] * Blue Tube HOLD (02/14/2019 10:54 PM EDT) Pathologist [facility] Blue Hold Sample in lab. [facility] Blood specimen (specimen) Venous Draw / Unknown 02/14/2019 10:54 PM EDT 02/14/2019 11:09 PM EDT Yahir Okeefe MD HEMATOLOGY ORDERABL ES Performing Organization Address [facility] Co de Phone Number [facility] [place] [address] * Differential, Automated (02/14/2019 10:54 PM EDT) Pathologist [facility] Neutrophil % 52.0 % [facility] Neutrophil Absolute 3.75 1.70 - 6.10 x10(3)/[facility] Lymph % 35.2 % [facility] Lymphocytes Abs 2.5 0.9 - 3.2 x10(3)/[facility] Monocyte % 9.0 % [facility] Monocyte Abs 0.6 0.3 - 0.9 x10(3)/[facility] Eos % 2.8 % [facility] Eosinophils Abs 0.2 0.0 - 0.4 x10(3)/[facility] Basophil % 0.6 % [facility] Baso Absolute 0.0 0.0 - 0.1 x10(3)/[facility] Immature Gran % 0.40 % [facility] Comment: Immature granulocytes(IG's)percentage and absolute count will include metamyelocytes, myelocytes, and promyelocytes. Blood smears from CBCs yielding IG's will be scanned manually for concordance. If this scan disagrees with the automated IG or if promyelocytes are noted, a manual differential will be performed. Immature Gran Absolute 0.03 0.00 - 0.04 x10(3)/mcL [facility] Blood specimen (specimen) 02/14/2019 10:54 PM EDT 02/14/2019 11:09 PM EDT Narrative Resulting Agency Comment Spec In Lab Yahir Okeefe MD HEMATOLOGY ORDERABL ES [facility] [place] [address] * (ABNORMAL) Hemogram (02/14/2019 10:54 PM EDT) White Blood Cell 7.2 4.0 - 9.5 x10(3)/mc L [facility] Red Blood Cell 4.11 4.00 - 5.21 x10(6)/mc L [facility] Hemoglobin 12.0 11.7 - 15.5 gm/dL [facility] Hematocrit 36.3 35.7 - 45.8 % [facility] Mean Cell Volume 88.3 82.6 - 94.4 fL [facility] Mean Cell Hemoglobin 29.2 27.1 - 32.0 pg [facility] Mean Cell Hemoglobin Concentration 33.1 31.7 - 35.0 gm/dL [facility] Platelet 366(H) 145 - 357 x10(3)/mc L [facility] RDW Standard Deviation 45.5 37.0 - 46.0 fL [facility] RDW coefficient of variation 14.3(H) 11.5 - 14.1 % [facility] Mean Platelet Volume 8.6 7.6 - 12.9 fL [facility] NRBC% auto 0.0 % [facility] NRBC Absolute 0.000 0.000 - 0.000 x10(3)/mc L [facility] Blood specimen (specimen) 02/14/2019 10:54 PM EDT 02/14/2019 11:09 PM EDT Narrative Resulting Agency Comment Spec In Lab Yahir Okeefe MD HEMATOLOGY ORDERABL ES Performing Organization Address [facility]/ZIP Co de Phone Number [facility] [place] [address] * T4, free (02/14/2019 10:54 PM EDT) Free T4 1.00 0.93 - 1.70 ng/dL [facility] Blood specimen (specimen) 02/14/2019 10:54 PM EDT 02/14/2019 11:09 PM EDT Narrative Resulting Agency Comment Spec In Lab Tony Monique MD CHEMISTRY ORDERABLES Performing Organization Address [facility] Co de Phone Number [facility] [place] [address] * (ABNORMAL) TSH (02/14/2019 10:54 PM EDT) Thyroid Stimulating Hormone 4.60(H) 0.27 - 4.20 mcIU/mL [facility] Blood specimen (specimen) 02/14/2019 10:54 PM EDT 02/14/2019 11:09 PM EDT Narrative Resulting Agency Comment Spec In Lab Tony Monique MD CHEMISTRY ORDERABLES Performing Organization Address [facility]/ZIP Co de Phone Number [facility] [place] [address] * Basic Metabolic Panel (non-fasting) (02/14/2019 10:54 PM EDT) Glucose 147 65 - 199 mg/dL [facility] Comment:Diabetes: >=200 mg/d L plus symptoms Blood Urea Nitrogen 11 8 - 18 mg/dL [facility] Creatinine 0.76 0.70 - 1.20 mg/dL [facility] Sodium 140 135 - 145 mmol/L [facility] Potassium 3.9 3.5 - 5.0 mmol/L [facility] Comment: Please note: ??Patients with WBC >100,000 may have falsely elevated Potassium levels. ??For accurate Potassium quantification in these patients send serum separator tube (gold top) for subsequent determinations. ??Contact the Clinical Chemistry Laboratory if there are any questions. Chloride 102 98 - 107 mmol/L [facility] Carbon Dioxide 28 22 - 31 mmol/L [facility] Anion Gap 10 5 - 15 mmol/L [facility] Calcium 9.2 8.5 - 10.5 mg/dL [facility] Est Glomerular Filtration Rate 86 >=60 mL/min/1. 73 m?? [facility] Comment: The eGFR was calculated using the CKD-EPI equation. As with all creatinine based estimates of kidney function, eGFR values calculated with the CKD-EPI equation are not accurate in patients with acute kidney failure, extremes of body mass or the acutely ill. [email or web address] eGFR 100 >=60 mL/min/1. 73 m?? [facility] Comment: The eGFR was calculated using the CKD-EPI equation. As with all creatinine based estimates of kidney function, eGFR values calculated with the CKD-EPI equation are not accurate in patients with acute kidney failure, extremes of body mass or the acutely ill. [email or web address] Blood specimen (specimen) 02/14/2019 10:54 PM EDT 02/14/2019 11:09 PM EDT Narrative Resulting Agency Comment Spec In Lab Tony Monique MD CHEMISTRY ORDERABLES [facility] [place] [address] * EKG 12 Lead (02/14/2019 10:28 PM EDT) Ventricular rate 70 BPM MUSE SYSTEM Atrial Rate 70 BPM MUSE SYSTEM P-R Interval 162 ms MUSE SYSTEM QRS Duration 90 ms MUSE SYSTEM Q-T Interval 386 ms MUSE SYSTEM QTC Calculated (Bezet) 416 ms MUSE SYSTEM Calculated P [place] 48 degrees MUSE SYSTEM Calculated R [place] 7 degrees MUSE SYSTEM Calculated T [place] 33 degrees MUSE SYSTEM INTERPRETATION Sinus rhythm with Premature atrial complexes with Aberrant conduction Otherwise normal ECG When compared with ECG of 19-OCT-2007 07:46, Aberrant conduction is now Present T wave inversion no longer evident in Lateral leads Confirmed by MD Herminia, Jak ([id number]) on 02/15/2019 8:07:37 AM MUSE SYSTEM 02/14/2019 10:2 8 PM EDT 02/15/2019 8:07 AM EDT Tony Monique MD ECG ORDERABLES MUSE SYSTEM documented in this encounter Visit Diagnoses Diagnosis Anxiety Anxiety state, unspecified Irritable bowel syndrome with constipation Irritable bowel syndrome documented in this encounter Care Teams Machine Pack Assembler Relationship Specialty Start Date End Date Brenda Canchola MD PCP - General 06/01/10 03/25/19 documented as of this encounter
--- NOTE | 2024-08-20 16:53 | DI.VRAD_ITS ---
PROCEDURE INFORMATION: Exam: XR Chest Exam date and time: 08/20/2024 3:43 PM Age: 63 years old Clinical indication: Other: SOB, eval pna TECHNIQUE: Imaging protocol: Radiologic exam of the chest. Views: 2 views. COMPARISON: CR XR CHEST 2V PA LATERAL 04/15/2024 5:29 PM (report not provided) FINDINGS: Lungs: Unremarkable. No consolidation. Pleural spaces: Unremarkable. No pleural effusion. No pneumothorax. Heart/Mediastinum: The cardiomediastinal silhouette is fairly stable in appearance. Bones/joints: Degenerative changes again involve the spine. IMPRESSION: No evidence for acute pulmonary disease. Dictated and Authenticated by: Juanpablo Mixon MD. Orderin Ronald Mary MD
== END 2024-08-20 16:02 ==
LOC: DI 15:46
PROVIDERS: PCP Family Medicine; Visit Provider Nurse Practitioner Family
DX: R06.02 Shortness of breath (principal)
CPT/HCPCS: 71046

== ENCOUNTER 2024-12-16 15:03 | Outpatient (REF) | payer MEDICARE, MEDICAID, SELFPAY ==
[2024-12-16 16:57] LABS: Calculated LDL 86 mg/dL (<100); Cholesterol 144 mg/dL (<200); HDL Cholesterol 40 mg/dL (>or=50); Triglyceride 90 mg/dL (<150)
[2024-12-16 16:59] LABS: COMMENT (LAB VIEW ONLY) 56.51 mg/dL
== END 2024-12-16 15:04 | disposition home or self-care (01) ==
LOC: NCHCN 15:03
PROVIDERS: PCP Family Medicine; Visit Provider Nurse Practitioner Family
DX: E78.5 Hyperlipidemia, unspecified (principal); E11.42 Type 2 diabetes mellitus with diabetic polyneuropathy
CPT/HCPCS: 80061; 82043; 82570

== ENCOUNTER 2025-02-21 17:16 | Outpatient (REF) | payer MEDICARE, SELFPAY ==
[2025-02-21 16:35] LABS: ALT 31 U/L (14-59); AST 20 U/L (15-37); Albumin 3.8 g/dL (3.4-5.0); Alkaline Phosphatase 98 U/L (46-116); Anion Gap 11.8 mmol/L (3-11); BUN 11 mg/dL (7-18); Bilirubin, Total 0.6 mg/dL (0.2-1.0); CO2 25.2 mmol/L (21.0-32.0); Calcium 9.0 mg/dL (8.5-10.1); Calculated LDL 75 mg/dL (<100); Chloride 105 mmol/L (98-107); Cholesterol 131 mg/dL (<200); Estimated GFR 70.95 (mL/min/1.73m2); Glucose 211 mg/dL (74-106); HDL Cholesterol 34 mg/dL (>or=50); Potassium 4.6 mmol/L (3.5-5.1); Sodium 142 mmol/L (136-145); Total Protein 6.8 g/dL (6.4-8.2); Triglyceride 113 mg/dL (<150)
[2025-02-21 16:50] LABS: Hemoglobin A1C 7.5 % (<5.7)
[2025-02-22 10:39] LABS: HIV-1/2 Ag & Ab Screen Negative (Negative)
[2025-02-23 10:13] LABS: Hepatitis C Ab w Rflx HCV PCR Negative (Negative)
== END 2025-02-21 17:17 | disposition home or self-care (01) ==
LOC: NCHCN 17:16
PROVIDERS: PCP Family Medicine; Visit Provider Nurse Practitioner Family
DX: E78.5 Hyperlipidemia, unspecified (principal); E11.42 Type 2 diabetes mellitus with diabetic polyneuropathy
CPT/HCPCS: 80053; 80061; 86803; 87389; 83036

== ENCOUNTER 2025-04-03 16:25 | Outpatient (REF) | payer MEDICARE, SELFPAY ==
[2025-04-03 20:05] LABS: Glucose Negative (Negative)
[2025-04-03 20:20] LABS: C & S Indicated? No; RBC Negative HPF (0-2); WBC 0-2 HPF (0-5)
== END 2025-04-03 16:26 | disposition home or self-care (01) ==
LOC: NCHCN 16:25
PROVIDERS: PCP Family Medicine; Visit Provider Family Medicine
DX: R82.998 Other abnormal findings in urine (principal)
CPT/HCPCS: 81003; 81015

== ENCOUNTER 2025-05-07 07:54 | Emergency (ER) | payer MEDICARE, SELFPAY ==
[2025-05-07 08:12] VITALS: BP 166/83; PULSE 65; RESP 15; TEMP 36.5; O2SAT 95
[2025-05-07 08:16] VITALS: BP 166/83; PULSE 65; RESP 15; TEMP 36.5; O2SAT 95
--- NOTE | 2025-05-07 08:23 | W.ED.GENAD ---
Discharge Plan Disposition Patient Disposition: Home Condition: Good Discharge Details Clinical Impression: Abdominal pain, Medication adverse effect, Elevated lipase Primary Care Provider: Tomasa Phillips ED Provider: Cindy Roth Home Meds and New Rx's Prescriptions: Continued (DME) Aerochamber MV spacer See Dose Instructions .Route .MEDSUPPLY Qty: 1 0RF Dose Instruction: As directed Rx Instructions: As directed fluticasone propionate [Flonase Allergy Relief] 50 mcg/actuation spray,suspension 1 spray KUMAR BID PRN (Reason: nasal congestion) Qty: 9.9 3RF Rx Instructions: administer into each nostril loratadine [Claritin] 10 mg tablet 10 mg PO DAILY lorazepam 1 mg tablet 0.5 - 1 mg PO BID PRN (Reason: anxiety) Qty: 30 0RF Rx Instructions: 12/06/ PT USES 1 MG AT HS AND 0.5 MG AT NOON nitroglycerin 0.4 mg tablet, sublingual 0.4 mg Sublingual PRN Qty: 25 2RF Rx Instructions: 1 TAB SL PRN melatonin 10 mg capsule 10 mg PO HS PRN pantoprazole [Protonix] 40 mg tablet,delayed release (DR/EC) 40 mg PO DAILY Qty: 30 12RF ipratropium-albuterol 0.5 mg-3 mg(2.5 mg base)/3 mL solution for nebulization 3 ml inhalation Q4H PRN (Reason: wheezing) Qty: 90 0RF docusate sodium 100 mg tablet 100 mg PO DAILY Saline Mist 0.65 % aerosol,spray 2 spray intranasal Q4H Qty: 44 0RF Rx Instructions: while awake acetaminophen [Tylenol] 325 MG tablet 650 mg PO Q4H PRN CPAP (DME) lancets [OneTouch Delica Lancets] 1 EACH misc 1 ea Intradermal BID Qty: 200 Rx Instructions: DX: 250.00 (DME) OneTouch Ultra Test 1 EACH strip 1 strip Miscellaneous DAILY Qty: 100 Rx Instructions: DX: 250.00 oral meds amlodipine 5 mg tablet 5 mg PO DAILY Qty: 90 4RF Rx Instructions: 1 TAB DAILY clopidogrel [Plavix] 75 mg tablet 75 mg PO DAILY Qty: 90 4RF Metoprolol Succinate 25 MG TAB.ER.24H 25 mg PO DAILY Qty: 90 4RF Rx Instructions: 1 TAB DAILY simvastatin 10 mg tablet 10 mg PO DAILY Qty: 90 4RF Rx Instructions: 1 TAB DAILY losartan [Cozaar] 100 mg tablet 100 mg PO DAILY Qty: 90 4RF Rx Instructions: 1 TAB DAILY albuterol sulfate [Ventolin HFA] 90 mcg/actuation HFA aerosol inhaler 2 puff IH Q4H PRN (Reason: shortness of breath or wheezing) Qty: 8.5 11RF sucralfate 100 mg/mL suspension 10 ml PO QID Rx Instructions: swish in mouth and swallow; use after food/drink buspirone 30 mg tablet 30 mg PO BID aspirin 81 mg Tablet,Delayed Release (Dr/Ec) 81 mg PO DAILY lamotrigine 100 mg tablet 100 mg PO QAM Patient Comments: TAKE ONE TABLET BY MOUTH TWICE A DAY trazodone 50 mg tablet 100 mg PO HS PRN Rx Instructions: 1-tab at HS PRN (DME) nebulizers [Aeroneb Go Nebulizer] Misc See Rx Instructions .Route Qty: 1 0RF Rx Instructions: As directed Mounjaro 5 mg/0.5 mL pen injector 7.5 mg SUBCUT .weekly metformin 500 mg tablet 1,000 mg PO BID (DME) blood-glucose meter [FreeStyle Lite Meter] Kit See Rx Instructions .ROUTE .MEDSUPPLY Qty: 1 0RF Rx Instructions: As directed (DME) FreeStyle Lite Strips Strip See Rx Instructions .ROUTE .MEDSUPPLY Qty: 10 0RF Rx Instructions: As directed Discharge Instructions Instructions: Abdominal Pain, Adult ED Additional Instructions: As we discussed, your CT scan was very reassuring with no significant abnormality. However, I am worried that one of the markers for your pancreas are elevating slightly. This was also elevated last year. This may be a side effect of your injectable medication, Mounjaro. I put in a call your primary care discussed this further. I do not believe that this is what is causing your abdominal pain today but is something that should be discussed further to ensure that you are on the safe this medication possible. As this is used to control your diabetes, I do not recommend that you stop without discussing with your primary care first. Your pain however may be a side effect of the medication as well as activation of your IBS. Please continue to encourage hydration. As we discussed surgical team recommends that you continue with the clear liquid diet we discussed for the next 2 days. This may help things calm down further. Please follow-up with your primary care within the next week for reevaluation. If you develop any fever/chills, increased pain, inability stay hydrated or other new/worsening symptom please seek care urgently once again. Referrals: oTmasa Phillips [Primary Care Provider, Medicine] Discharge Data Discharge Date/Time-TO BE ENTERED AT DEPARTURE: 05/07/25 12:32 HPI General Date/Time Provider Initiated Documentation: 05/07/25 08:23. Limitations to Documentation: no limitations. Information obtained by: patient, RN notes reviewed and old records reviewed. History of Present Illness 64 year old F presents to the emergency department with the chief complaint of left sided abdominal pain, described as moderate, Quality is described as aching, and is localized to the abdomen. Patient reports no radiation. Patient started experiencing this day(s) and it has been constant. No relieving factors improve symptom(s), No exacerbating factors reported . Patient notes no other symptoms.. Patient did receive the following treatments prior to arrival, none Related Data Home Medications Medication Instructions Recorded Confirmed Cpap 10/24/12 08/17/24 acetaminophen 325 mg tablet 650 mg PO Q4H PRN 10/24/12 08/17/24 (Tylenol) lancets 33 gauge (OneTouch Delica #200 ea 12/15/12 08/17/24 Lancets) blood sugar diagnostic (OneTouch #100 strips 01/24/14 08/17/24 Ultra Test strips) inhalational spacing device #1 ea 05/01/18 08/17/24 (Aerochamber MV spacer) nitroglycerin 0.4 mg sublingual 0.4 mg sublingual PRN #25 tab-caps 05/04/18 08/17/24 tablet amlodipine 5 mg tablet 5 mg PO DAILY #90 tab-caps 07/27/18 08/17/24 clopidogrel 75 mg tablet (Plavix) 75 mg PO DAILY #90 tabs 07/27/18 08/17/24 simvastatin 10 mg tablet 10 mg PO DAILY #90 tab-caps 07/31/18 08/17/24 losartan 100 mg tablet (Cozaar) 100 mg PO DAILY #90 tab-caps 12/27/18 08/17/24 fluticasone propionate 50 1 spray intranasal BID PRN nasal 02/03/19 08/17/24 mcg/actuation nasal congestion #9.9 grams spray,suspension (Flonase Allergy Relief) loratadine 10 mg tablet (Claritin) 10 mg PO DAILY 02/03/19 08/17/24 lorazepam 1 mg tablet 0.5 - 1 mg (0.5 - 1 x 1 mg) PO BID 02/19/19 08/17/24 PRN anxiety #30 tabs albuterol sulfate 90 mcg/actuation 2 puff inhalation Q4H PRN 08/29/19 08/17/24 aerosol inhaler (Ventolin HFA) shortness of breath or wheezing #8.5 grams metformin 500 mg tablet 1,000 mg PO BID 09/12/19 08/17/24 aspirin 81 mg tablet,delayed 81 mg PO DAILY 08/17/20 08/17/24 release lamotrigine 100 mg tablet 100 mg PO QAM 08/17/20 08/17/24 trazodone 50 mg tablet 100 mg PO HS PRN 08/17/20 08/17/24 blood sugar diagnostic (FreeStyle #10 ea 12/06/20 08/17/24 Lite Strips) blood-glucose meter (FreeStyle #1 ea 12/06/20 08/17/24 Lite Meter kit) melatonin 10 mg capsule 10 mg PO HS PRN 02/23/21 08/17/24 pantoprazole 40 mg tablet,delayed 40 mg PO DAILY #30 tabs 11/25/21 08/17/24 release (Protonix) nebulizers (Aeroneb Go Nebulizer) #1 ea 04/03/22 08/17/24 buspirone 30 mg tablet 30 mg PO BID 03/16/23 08/17/24 sucralfate 100 mg/mL oral 10 ml PO QID 03/16/23 08/17/24 suspension ipratropium 0.5 mg-albuterol 3 mg 3 ml inhalation Q4H PRN wheezing 06/05/23 08/17/24 (2.5 mg base)/3 mL nebulization #90 mL soln docusate sodium 100 mg tablet 100 mg PO DAILY 04/13/24 08/17/24 tirzepatide 5 mg/0.5 mL 7.5 mg subcut .weekly 04/15/24 08/17/24 subcutaneous pen injector (Mounjaro) sodium chloride 0.65 % nasal spray 2 spray intranasal Q4H #44 mL 08/17/24 08/17/24 aerosol (Saline Mist) Previous Rx's Medication Instructions Recorded inhalational spacing device #1 ea 05/01/18 (Aerochamber MV spacer) nitroglycerin 0.4 mg sublingual 0.4 mg sublingual PRN #25 tab-caps 05/04/18 tablet amlodipine 5 mg tablet 5 mg PO DAILY #90 tab-caps 07/27/18 clopidogrel 75 mg tablet (Plavix) 75 mg PO DAILY #90 tabs 07/27/18 simvastatin 10 mg tablet 10 mg PO DAILY #90 tab-caps 07/31/18 losartan 100 mg tablet (Cozaar) 100 mg PO DAILY #90 tab-caps 12/27/18 fluticasone propionate 50 1 spray intranasal BID PRN nasal 02/03/19 mcg/actuation nasal congestion #9.9 grams spray,suspension (Flonase Allergy Relief) lorazepam 1 mg tablet 0.5 - 1 mg (0.5 - 1 x 1 mg) PO BID 02/19/19 PRN anxiety #30 tabs albuterol sulfate 90 mcg/actuation 2 puff inhalation Q4H PRN 08/29/19 aerosol inhaler (Ventolin HFA) shortness of breath or wheezing #8.5 grams blood sugar diagnostic (FreeStyle #10 ea 12/06/20 Lite Strips) blood-glucose meter (FreeStyle #1 ea 12/06/20 Lite Meter kit) pantoprazole 40 mg tablet,delayed 40 mg PO DAILY #30 tabs 11/25/21 release (Protonix) nebulizers (Aeroneb Go Nebulizer) #1 ea 04/03/22 ipratropium 0.5 mg-albuterol 3 mg 3 ml inhalation Q4H PRN wheezing 06/05/23 (2.5 mg base)/3 mL nebulization #90 mL soln sodium chloride 0.65 % nasal spray 2 spray intranasal Q4H #44 mL 08/17/24 aerosol (Saline Mist) Allergies Allergy/AdvReac Type Severity Reaction Status Date / Time azithromycin AdvReac Mild Nausea Verified 08/20/24 14:01 codeine AdvReac Mild Nausea Verified 08/20/24 14:01 erythromycin base AdvReac Mild Nausea Verified 08/20/24 14:01 ibuprofen AdvReac Mild Nausea Verified 08/20/24 14:01 lisinopril AdvReac Mild cough Verified 08/20/24 14:01 NSAIDS (Non-Steroidal AdvReac Mild Nausea Verified 08/20/24 14:01 Anti-Inflamma General Stated Complaint: Abd Prob MONICA: 3 Review of Systems Constitutional Constitutional: Reports as per HPI, Denies chills and Denies fever(s) Cardiovascular Cardiovascular: Reports as per HPI, Denies chest pain and Denies dyspnea Respiratory Respiratory: Reports as per HPI, Denies cough and Denies dyspnea Gastrointestinal Gastrointestinal: Reports as per HPI Musculoskeletal Musculoskeletal: Reports as per HPI and Denies back pain Integumentary/Breasts Skin/Breast: Reports as per HPI and Denies rash Neurologic Neurologic: Reports as per HPI Exam Const General: cooperative, healthy appearing, comfortable, no acute distress and well developed Nutritional Appearance: well nourished and overweight Orientation: alert and awake HENMT Head: normal to inspection Mouth: moist mucous membranes Resp Effort & Inspection: normal respiratory effort, able to speak in complete sentences and no respiratory distress Auscultation: clear to auscultation bilaterally, no rales, no rhonchi and no wheezes Cardio Rate: regular rate Rhythm: regular rhythm Heart Sounds: S1 normal and S2 normal GI Inspection: normal to inspection Palpation: soft, no hepatosplenomegaly and tender other (along the far left abdomen); not at McBurney's point, Titus's sign negative, obturator sign negative and with no rebound tenderness Percussion: normal to percussion Auscultation: normal bowel sounds Skin General skin exam: no rashes or lesions noted Trauma: no lacerations or abrasions Neuro General: patient alert and patient awake Cognition: normal cognition Speech: speech normal Gait: normal gait Course Vital Signs Vital signs: Vital Signs Temperature 36.5 C 05/07/25 08:12 Pulse 65 05/07/25 08:12 Respiratory Rate 15 05/07/25 08:12 Blood Pressure 166/83 H 05/07/25 08:12 Pulse Oximetry 95 05/07/25 08:12 Temperature 36.5 C 05/07/25 08:16 Temperature Source Oral 05/07/25 08:16 Pulse 65 05/07/25 08:16 Respiratory Rate 15 05/07/25 08:16 Blood Pressure 166/83 H 05/07/25 08:16 Blood Pressure Position Sitting 05/07/25 08:16 Pulse Oximetry 95 05/07/25 08:16 Oxygen Delivery Method Room Air 05/07/25 08:16 Oxygen Flow Rate 0 05/07/25 08:16 Pain Level 8 05/07/25 08:16 Medical Decision Making Patient is a pleasant 64-year-old female with past medical history significant for type 2 diabetes, COPD, HCV D, IBS, left renal carcinoma status post excision, recurrent diverticulitis, presented with chief complaint of left-sided abdominal pain that began about 3 days ago and has progressively been increasing. She reports that the pain is far more lateral and seems to be wrapping more from the flank than what she has experienced with her diverticulitis historically. She does report that her stool size has a lower caliber. States that she has had some chills at night for the last few nights. No change in her appetite. No weight changes. Denies any blood in her stool. Denies any chest pain, palpitations. Denies any alcohol intake. Patient does smoke. Denies any change in urinary habits, no symptoms of UTI. Denies any vaginal discharge.Past surgical history significant for as well as excision of the renal carcinoma. On exam, patient appears nontoxic. Resting comfortably no acute distress. Slightly hypertensive but otherwise normal vital signs. She has normal active bowel sounds. No rash. The manner in which she keeps gesturing to the pain initially having concern for potential shingles but she does not have any skin pain or lesions. She has not had her shingles vaccine as of yet. Patient also has not had the recommended colonoscopy after her most recent bout of diverticulitis. Reports she [place] [facility] [place] not able to follow-up due to family emergencies. Abdomen is serious from mild diffuse discomfort, patient reports that she feels bloated. She feels a little bit more firm on the left side but no significant masses. No guarding or peritoneal findings. No pulsatile mass. Normal cardiac exam. Concern for recurrent diverticulitis. With the chills and change in stool caliber, also considered cancer, particularly with the patient's smoking history as well as her previous history of renal carcinoma. Also considered something from the kidney given that the initial site of her discomfort however, patient is not endorsing any symptoms to suggest infection so doubt something like pyelonephritis but could have complication associated with prior surgery. Nausea considered IBS flare, obstruction, infectious etiology. Will obtain imaging, labs and continue to monitor. Labs are reassuring. Contacted by radiologist who advised no acute abnormality. No evidence to suggest diverticulitis. In particular, we did discuss the patient's lipase which has been slightly elevated this time as well as last visit. He does advise that there is a small cyst in the tail but that this has been present and is unchanged. Does not feel that this needs further evaluation. Also noted small adenoma in the adrenal gland which also is unchanged do not feel that this needed further evaluation at this time. With his continued elevation of the lipase, consider this to be associated with the Mounjaro although no evidence to suggest acute pancreatitis on the imaging. Will touch base with surgery to see if they recommend holding off on any further administration of this medication with the continued elevation of the lipase. Called primary care office a few times today and not received any answer as of yet. Will continue to try to reach out. However, I did encourage the patient follow-up closely as well. Her blood pressure was elevated but she did seem slightly upset around the possibility of changing meds yet again. Sounds that she struggled to control her diabetes as well as her weight and she has had a number of side effects from the medications. If the CT scan did not show any evidence to suggest acute pancreatitis in corrleation with location of the pain, I do not believe this patient has acute pancreatitis. This more likely slight elevation associated with medication. I do not believe that this is associated with the discomfort. However, she does report that she has been on multiple injectable weight loss/diabetic medications that she has chronically had abdominal discomfort associated with GI upset and exacerbation of her IBS. It is good to be associated with that and I did encourage that she discuss this further with her primary care. Strict return precautions were discussed. No evidence to suggest acute infections and no need for antibiotics. She will continue with clear liquid diet for the next few days to allow for bowel rest. All of her questions and concerns were addressed and she is in agreement this plan. Dictation completed using [employer] dictation software. Please excuse any errors or report specialist anomalies that may remain. [facility] All Active Problems (Updated 05/07/25 @ 11:47 by RAEGAN Calvert) Elevated lipase (Acute) Medication adverse effect (Acute) Abdominal pain (Acute) Degenerative joint disease of right knee (Acute) Mild 40 mg Depo: 03/20/23 Internal derangement of right knee (Acute) Right knee pain (Acute) Liver cirrhosis secondary to nonalcoholic steatohepatitis ([place]) (Acute) Chronic diarrhea (Acute) Epigastric pain (Acute) Hyperplastic colon polyp (Acute) ASCVD (arteriosclerotic cardiovascular disease) (Acute) 10/15 anterolat NSTE NJ; stent x 4; 10/15 echo-EF 55%; inf.wall hypokinesis; mild Anxiety (Acute) after NJ decreased memory/concentration[place] [place] COPD (chronic obstructive pulmonary disease) (Acute) continues to smoke Depressive disorder (Acute) fatigue Diabetic peripheral neuropathy associated with type 2 diabetes mellitus (Acute 03/03/16) Essential hypertension (Acute 05/03/13) Urinary, incontinence, stress female (Acute 09/13/13) Heart murmur (Acute 09/13/13) 10/21 echo LVEF 70% with LVH, aoritc valve thickened but opens well (no signif aortic stenosis) [facility] Echo 02/05/19 - LVH (mild-mod), EeF= 60-65%, systolic function normal, ascending aorta mildly dilated Hyperlipidemia (Acute 12/18/12) Morbid obesity (Acute) Numbness and tingling in right hand (Acute 03/03/16) Obstructive sleep apnea syndrome (Acute 03/27/10) [facility] [place] Pap smear abnormality of cervix with LGSIL (Acute) LGSIL +HPV; BX darcie I Postmenopausal bleeding (Acute 09/21/11) atypical endometrial hyperplasia Sciatica (Acute 07/04/13) left sciatica, [place] [facility] [place]: L3-4 disc extrusion Skin tags, multiple acquired (Acute 02/15/16) Smoker (Acute) Type II diabetes mellitus, uncontrolled (Acute) Asthma (Chronic) Status post arthroscopy of left knee (Acute) History of section (Acute) Family history of malignant neoplasm of breast (Acute 09/11/14) Fever (Acute) She is febrile and has both abdominal and chest symptoms. We will send to the emergency room. Upper respiratory infection (Acute) Hyperglycemia (Acute) Acute bronchospasm (Acute) Seasonal allergies (Acute) History of COPD (Acute) Fatty liver (Acute) Diverticulosis (Acute) Constipation (Acute) Incontinence (Acute) Pedal edema (Acute) Varicose veins of lower extremity (Acute) Bipolar disorder (Chronic) Compliant with therapeutic regimen (Acute) Caren, oral (Acute) Allergic rhinitis (Acute) Medical History Hx of malignant neoplasm of eye History of renal carcinoma Hypertension COPD (chronic obstructive pulmonary disease) Hyperlipidemia Heart murmur Atherosclerotic cardiovascular disease Depression Anxiety Stress incontinence in female Morbid obesity with BMI of 40.0-44.9, adult Plantar fasciitis of left foot Sleep apnea Surgical History H/O esophagogastroduodenoscopy (~03/10/21) S/P colonoscopy (~03/10/21) Stent placement X 4 TO LCX-1995 section (~1981) Cervical Procedure BX DARCIE I Arthroplasty of knee athroscopy not arthroplasty. Family History Mother Personal history of malignant neoplasm UTERINE CA; HYSTERECTOMY AGE 75 Uterine cancer Hysterectomy at 76 Father Heart disease Brother Diabetes Cancer Brother No problems noted. Brother No problems noted. Social History Smoking/Tobacco Use Status: Current every day Tobacco Type: cigarettes Smoking packs per day: 1 Smoking cigarettes per day: 20.0 Smoking risk assessment performed?: Yes Alcohol Intake: current Alcohol Intake frequency: holidays/special occasions only Drug use: Never Substance use type: does not use Household members: significant other Housing: house Communication Needs: None Do you need help understanding health information?: Rarely Pets and animals: Yes Pets and animals: dog(s) Do you think of yourself as: straight/heterosexual Current gender identity: female What is your relationship status?: living with partner How often do you talk on the phone with friends or family?: three or more times per week How often do you get together with friends or relatives?: decline to answer How often do you attend buddhist or rastafarian services?: decline to answer Do you belong to any clubs or organized social groups?: no Panel score (0-1 are the most socially isolated patients): 2 What type of physical activity do you participate in: none Duration: < 15 minutes/day Frequency: daily Katerina/Hinduism: none Special katerina needs: No Seatbelt use: sometimes Helmet use: Yes Helmet use: always Drive intox or ride w/intox automobile drivers: No Do you feel safe at home: Yes Do you feel safe in your relationship?: Yes
[2025-05-07] MEDS: Lactated Ringers 1,000 ML 1000 ML IV (09:15)
[2025-05-07 09:27] LABS: Abs Immature Grans 0.03 10^3/uL (0.0-0.06); HCT 40.2 % (36.0-46.0); HGB 13.6 g/dL (11.2-15.7); Immature Grans % 0.3 %; MCH 30.1 pg (27.0-33.0); MCHC 33.8 % (32.0-36.0); MCV 89 fL (80-95); MPV 9.6 fL (8.0-11.0); Platelet Count 362 10^3/uL (130-400); RBC 4.52 10^6/uL (3.93-5.22); RDW 14.0 % (11.7-14.6); RDW-SD 45.4 fL; WBC 8.73 10^3/uL (4.4-10.8)
[2025-05-07 09:34] LABS: Lipase 149 U/L (<78)
[2025-05-07 09:39] LABS: ALT 41 U/L (14-59); AST 22 U/L (15-37); Albumin 4.1 g/dL (3.4-5.0); Alkaline Phosphatase 105 U/L (46-116); Anion Gap 9.5 mmol/L (3-11); BUN 8 mg/dL (7-18); Bilirubin, Total 0.7 mg/dL (0.2-1.0); CO2 29.5 mmol/L (21.0-32.0); Calcium 9.8 mg/dL (8.5-10.1); Chloride 100 mmol/L (98-107); Glucose 145 mg/dL (74-106); Magnesium 2.0 mg/dL (1.8-2.4); Potassium 4.4 mmol/L (3.5-5.1); Sodium 139 mmol/L (136-145); Total Protein 7.6 g/dL (6.4-8.2)
[2025-05-07] MEDS: Normal Saline Flush 10 ML SYR IVP (09:59)
[2025-05-07] MEDS: Omnipaque 350 MG/ML 100 ML BTL IJ (10:02)
[2025-05-07 10:07] LABS: Cannabinoids THC Negative (Negative)
--- NOTE | 2025-05-07 10:07 | DI.CT_ITS ---
Exam(s) CT ABDOMEN PELVIS W EXAM: CT ABDOMEN PELVIS W CLINICAL HISTORY: left sided flank to anterior abdominal pain. TECHNIQUE: Imaging Protocol: Axial computed tomography images with coronal and sagittal reformatted images were created and reviewed CONTRAST MATERIAL: Intravenous: Omnipaque-350 100cc Oral: None COMPARISON: CT CT ABDOMEN PELVIS W from 06/07/2024 FINDINGS: VISUALIZED LUNG BASES: No nodules nor pleural effusions evident. ABDOMEN: There is no ascites. LIVER: There are no focal hepatic lesions evident. No dilated intrahepatic ducts. GALLBLADDER/BILIARY: No obvious gallbladder pathology. CBD is not dilated. PANCREAS: No evidence of significant pancreatic mass nor dilatation of the pancreatic duct. SPLEEN: Spleen is not enlarged. No obvious intrasplenic lesions. Splenic and portal veins are patent. ADRENALS: Right adrenal gland unremarkable. Small nodule in left adrenal gland is unchanged in size, measuring 1.8 x 1.3 cm. Probably small adenoma. KIDNEYS:Right kidney unremarkable. Again noted is evidence of partial left nephrectomy. The appearance of the left kidney is unchanged from previous. No evidence of new mass in left kidney. Cortical calcification at this level in the left kidney is unchanged. No hydronephrosis. No hydroureter.. Left renal vein is patent. ABDOMINAL AORTA: Calcified but not enlarged. LYMPH NODES:There is no retroperitoneal nor paraaortic adenopathy. ABDOMINAL WALL: No evidence of anterior abdominal hernia. There is a fat containing right inguinal hernia again noted, unchanged. Does not contain bowel loops. GI: There is no evidence of bowel obstruction, free air, nor abscess. There are few diverticuli in the descending-left colon. No evidence of obvious acute diverticulitis. PELVIS: GI: No evidence of appendicitis.No evidence of sigmoid diverticulitis. LYMPH NODES: There is no intrapelvic nor inguinal adenopathy. REPRODUCTIVE: Uterus and adnexal regions appear unremarkable and there is no free fluid in the pelvis. URINARY BLADDER: No calculi nor obvious masses evident OSSEOUS: No fractures and no significant osseous lesions. Mild degenerative scoliosis in the lumbar spine. IMPRESSION: 1. There are few scattered diverticuli in the descending-left colon but no evidence of acute diverticulitis (as was previously present in 2023). Also no evidence of appendicitis. 2. Again noted is evidence of previous partial left nephrectomy with no new significant findings in either kidney. 3. Continued stable appearance of small nodule left adrenal gland which is probably an incidental adenoma. 4. Fat only containing right inguinal hernia again noted, unchanged. Report called by myself to ER provider 05/07/2025 at 10:44 a.m. RADIATION DOSE DELIVERED: 858.83mGy.cm Total DLP DATA REPOSITORY: All CT scans at this facility are submitted to the National Radiology Data Registry (NRDR) Dose Index Registry (DIR) with the [employer] (ACR). RADIATION OPTIMIZATION: All CT scans at this facility use at least one of these dose optimization techniques: automated exposure control; mA and/or kV adjustment per patient size (includes targeted exams where dose is matched to clinical indication); or iterative reconstruction.
[2025-05-07 10:27] LABS: Glucose Negative (Negative)
[2025-05-07 12:16] VITALS: BP 192/91; PULSE 61; RESP 18; O2SAT 96
== END 2025-05-07 12:32 | disposition home or self-care (01) ==
PROVIDERS: Emergency Provider Physician Assistant; PCP Nurse Practitioner Family
DX: R74.8 Abnormal levels of other serum enzymes (principal); R10.9 Unspecified abdominal pain; T50.995A Adverse effect of other drugs, medicaments and biological substances, initial encounter
CPT/HCPCS: 99284; 99285; 80053; 80307; 83690; 96360; 74177; 81003; 83735; 85025; J3490

== ENCOUNTER 2025-05-30 10:19 | Outpatient (REF) | payer MEDICARE, SELFPAY ==
--- NOTE | 2025-05-30 09:30 | PAPFT_PTH ---
PATIENT: Alize Gramajo LOC: [facility]#:[id number] AGE/SX: 64/F ROOM: RE05/30/[address]: Tomasa Phillips : 1960 BED: DIS: 05/30/2025 SPEC #: [id number] RECD: 05/30/25 18:32 STATUS: JOY KOLB #: [id number] AMBREEN: 05/30/25 09:[address]: Tomasa Phillips DEPT: [facility] Cytology RECD BY: Vijaya Carrasquillo Tissues: 1 - CX/ENDOCX FOR PAP SMEARS Procedures: PAP THIN PREP/[facility] Screening HPV DNA PROBE Comments: [id number] (HPV 16 & 18/45)
[2025-05-30 15:31] LABS: Lipase 80 U/L (<53)
== END 2025-05-30 10:20 | disposition home or self-care (01) ==
LOC: NCHCN 10:19
PROVIDERS: PCP Nurse Practitioner Family; Visit Provider Nurse Practitioner Family
DX: H10.9 Unspecified conjunctivitis (principal); R74.8 Abnormal levels of other serum enzymes; Z12.4 Encounter for screening for malignant neoplasm of cervix
CPT/HCPCS: 83690; 87077; 88142; 87070; 87186; 87624

== ENCOUNTER 2025-06-06 15:19 | Emergency (ER) | payer MEDICARE, SELFPAY ==
[2025-06-06 15:23] VITALS: BP 169/69; PULSE 79; RESP 16; TEMP 36.4; O2SAT 98
--- NOTE | 2025-06-06 15:30 | DI.RAD_ITS ---
Exam(s) XR PORTABLE CHEST AP EXAM: XR PORTABLE CHEST AP CLINICAL HISTORY: Flank pain TECHNIQUE: 2D digital imaging was performed of the chest. One image was obtained. An AP view was obtained. COMPARISON: CR,XR XR CHEST 2V PA LATERAL from 05/06/2023 CR,XR XR CHEST 2V PA LATERAL from 08/20/2024 FINDINGS: MEDIASTINUM: Normal. HEART: Normal. PULMONARY VASCULATURE: Normal. LUNGS: Clear. PLEURAL SPACE: No pleural effusion or pneumothorax. BONE:Within normal limits for the patient's age. OTHER FINDINGS:Normal. IMPRESSION: No acute pulmonary findings. DATA REPOSITORY: RADIATION DOSE DELIVERED:
[2025-06-06 16:14] LABS: Abs Immature Grans 0.03 10^3/uL (0.0-0.06); HCT 40.6 % (36.0-46.0); HGB 13.7 g/dL (11.2-15.7); Immature Grans % 0.4 %; MCH 29.5 pg (27.0-33.0); MCHC 33.7 % (32.0-36.0); MCV 88 fL (80-95); MPV 9.6 fL (8.0-11.0); Platelet Count 398 10^3/uL (130-400); RBC 4.64 10^6/uL (3.93-5.22); RDW 13.6 % (11.7-14.6); RDW-SD 44.1 fL; WBC 7.79 10^3/uL (4.4-10.8)
[2025-06-06 16:24] LABS: Glucose 500 mg/dL (Negative)
--- NOTE | 2025-06-06 16:28 | ED.GENADUL_ITS ---
Discharge Plan Disposition Patient Disposition: Home Discharge Details Clinical Impression: Chronic left flank pain, Elevated troponin level not due to acute coronary syndrome, Lactic acid increased Primary Care Provider: Tomasa Phillips ED Provider: Guillermo Fernandez Home Meds and New Rx's Prescriptions: No Action (DME) Aerochamber MV spacer See Dose Instructions .Route .MEDSUPPLY Qty: 1 0RF Dose Instruction: As directed Rx Instructions: As directed fluticasone propionate [Flonase Allergy Relief] 50 mcg/actuation spray,suspension 1 spray KUMAR BID PRN (Reason: nasal congestion) Qty: 9.9 3RF Rx Instructions: administer into each nostril loratadine [Claritin] 10 mg tablet 10 mg PO DAILY lorazepam 1 mg tablet 0.5 - 1 mg PO BID PRN (Reason: anxiety) Qty: 30 0RF Rx Instructions: 12/06/20 PT USES 1 MG AT HS AND 0.5 MG AT NOON nitroglycerin 0.4 mg tablet, sublingual 0.4 mg Sublingual PRN Qty: 25 2RF Rx Instructions: 1 TAB SL PRN melatonin 10 mg capsule 10 mg PO HS PRN pantoprazole [Protonix] 40 mg tablet,delayed release (DR/EC) 40 mg PO DAILY Qty: 30 12RF ipratropium-albuterol 0.5 mg-3 mg(2.5 mg base)/3 mL solution for nebulization 3 ml inhalation Q4H PRN (Reason: wheezing) Qty: 90 0RF docusate sodium 100 mg tablet 100 mg PO DAILY Saline Mist 0.65 % aerosol,spray 2 spray intranasal Q4H Qty: 44 0RF Rx Instructions: while awake acetaminophen [Tylenol] 325 MG tablet 650 mg PO Q4H PRN (DME) CPAP 0 .ROUTE .MEDSUPPLY (DME) lancets [OneTouch Delica Lancets] 1 EACH misc 1 ea Intradermal BID Qty: 200 Rx Instructions: DX: 250.00 (DME) OneTouch Ultra Test 1 EACH strip 1 strip Miscellaneous DAILY Qty: 100 Rx Instructions: DX: 250.00 oral meds amlodipine 5 mg tablet 5 mg PO DAILY Qty: 90 4RF Rx Instructions: 1 TAB DAILY clopidogrel [Plavix] 75 mg tablet 75 mg PO DAILY Qty: 90 4RF Metoprolol Succinate 25 MG TAB.ER.24H 25 mg PO DAILY Qty: 90 4RF Rx Instructions: 1 TAB DAILY simvastatin 10 mg tablet 10 mg PO DAILY Qty: 90 4RF Rx Instructions: 1 TAB DAILY losartan [Cozaar] 100 mg tablet 100 mg PO DAILY Qty: 90 4RF Rx Instructions: 1 TAB DAILY albuterol sulfate [Ventolin HFA] 90 mcg/actuation HFA aerosol inhaler 2 puff IH Q4H PRN (Reason: shortness of breath or wheezing) Qty: 8.5 11RF sucralfate 100 mg/mL suspension 10 ml PO QID Rx Instructions: swish in mouth and swallow; use after food/drink buspirone 30 mg tablet 30 mg PO BID aspirin 81 mg Tablet,Delayed Release (Dr/Ec) 81 mg PO DAILY lamotrigine 100 mg tablet 100 mg PO QAM Patient Comments: TAKE ONE TABLET BY MOUTH TWICE A DAY trazodone 50 mg tablet 100 mg PO HS PRN Rx Instructions: 1-tab at HS PRN (DME) nebulizers [Aeroneb Go Nebulizer] Misc See Rx Instructions .Route Qty: 1 0RF Rx Instructions: As directed Jardiance 10 mg tablet 10 mg PO DAILY Patient Comments: TAKE ONE TABLET BY MOUTH EVERY DAY FOR TYPE 2 DIABETES metformin 500 mg tablet 1,000 mg PO BID (DME) blood-glucose meter [FreeStyle Lite Meter] Kit See Rx Instructions .ROUTE .MEDSUPPLY Qty: 1 0RF Rx Instructions: As directed (DME) FreeStyle Lite Strips Strip See Rx Instructions .ROUTE .MEDSUPPLY Qty: 10 0RF Rx Instructions: As directed Discharge Instructions Instructions: Chronic pain, Abdominal Pain, Adult ED Additional Instructions: As discussed, your heart enzymes are elevated today. You typically have elevated heart enzymes and I suspect this is not related to an acute event that caused damage to your heart today (such as a heart attack), but likely rather due to several of your other chronic medical conditions which can cause chronic damage to the heart over time (COPD, hypertension). 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 Please follow-up with your primary care provider regarding your visit to the emergency department today. Be sure to discuss results of all test performed here today to include radiology, and laboratory testing as well as results for the results of the pending cultures. Should your symptoms worsen, or if you develop new concerning symptoms, please return immediately emergency department for further evaluation. Stand Alone Forms: Portal Information Referrals: Renata Downing MD [ [facility] STAFF PHYSICIAN, Cardiology] - 2 weeks HPI General Date/Time Provider Initiated Documentation: 06/06/25 15:27 . HPI Narrative: MDM/Narrative: 64-year-old female presents for multiple chronic complaints. However given her age, multiple comorbidities, with recent diagnosis of MRSA eye infection will evaluate for possible underlying causes of her left-sided flank pain, fatigue, as well as secondary evidence of worsening infection. With blood work and repeating eye and blood cultures. Given persistent clinical obtain CT imaging to rule out acute intra-abdominal process. ED course: Lab work shows persistent lipase which continued to resolve patient's last ER visit, no leukocytosis or neutrophilic predominance to suggest acute infection, however patient does have an elevated lactic acidosis at 2.5, as well as an elevated troponin. Chart review shows that the patient does have chronically elevated troponin. And she denies any chest pain or recent anginal type symptoms. As such we will obtain EKG, and repeat troponin. EKG shows no acute ischemic changes. Delta troponin of 15 although this is significantly elevated again, patient does not display any signs consistent with ACS, and has a normal EKG. I suspect his troponin anemia is likely secondary to multiple underlying medical problems that the patient has such as COPD, likely undiagnosed pulmonary hypertension, hypertension which is causing chronic myocardial damage. Will refer patient to cardiology, advised to follow-up with PCP to determine if she would benefit from an outpatient evaluation for troponinemia however there is no indication for hospitalization at this time. Repeat lactic acid is normal. On reassessment patient is resting comfortably and notes some improvement of her pain. She is agreeable to plan for discharge to follow-up with her PCP/appraisal specialist regarding the blood cultures as well as eye cultures drawn here today as well as cardiology as above. 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 Patient endorses a persistent complaint of fatigue and feeling unwell, which has been occurring for many months. She also notes left flank pain radiating around the edge of her left lower ribs, for approximately 3 weeks. As well as pain and swelling of the left thigh which has been occurring for approximately 3 weeks. Patient states that she has been being treated for a MRSA infection of the left thigh, was previously on polymyxin, with no significant blue meant, and before being started on a compounded vancomycin ointments, as prescribed by her appraisal specialist, the removal of the polymyxin has improved her symptoms, so she is no longer receiving treatment for the eye. She notes that while her symptoms are resolved they have been better, until today she noted increased pain and swelling. Denies any associated fevers or chills. In regards to her left flank pain has been a chronic problem for the past 3 to 4 weeks. She was evaluated emergency department at the onset of her symptoms, and a reassuring workup including blood work CAT scan which showed no acute findings. She notes that it remains unchanged and is not severe. Finally she notes that she feels ill and unwell. She admits that she has been isolating herself due to her recent MRSA infection. She notes that last year she was diagnosed of RSV and believes that she got the rest of her family sick tragically this resulted in the passing of one of her grandchildren who was immunocompromised. Since then she states she has been very anxious, and lonely, and notes that she has been spending all her free time disinfecting her apartment in effort to protect her family. She notes that she did not see anyone yesterday for Thanksgiving. ROS: Negative besides as mentioned above Exam: Gen: A&O NAD HEENT: NCAT, EOMI, not icteric. External ears normal. No rhinorrhea. Moist mucous membranes. Neck: Supple, full range of motion, no observable masses, No meningeal sign. Lungs: No Respiratory distress. CV: RRR, no edema. Abdomen: Soft, nondistended, No rebound tenderness. MSK: No joint swelling, no redness. Skin: No rashes, petechiae, lesions. Normal color per patient. Neuro: Normal Gait, Grossly intact. Psych: Appropriate for situation. Labs: 06/06/25 16:48 Cornea - Left Eye Culture - Preliminary 06/06/25 16:58 Blood Blood Culture - Pending 06/06/25 16:52 Blood Blood Culture - Pending Laboratory Tests Range/Units 06/06/25 06/06/25 06/06/25 16:01 16:16 17:36 WBC (4.4-10.8) 10^3/uL 7.79 RBC (3.93-5.22) 10^6/uL 4.64 Hgb (11.2-15.7) g/dL 13.7 Hct (36.0-46.0) % 40.6 MCV (80-95) fL 88 MCH (27.0-33.0) pg 29.5 MCHC (32.0-36.0) % 33.7 RDW (11.7-14.6) % 13.6 Plt Count (130-400) 10^3/uL 398 MPV (8.0-11.0) fL 9.6 Immature Gran % % 0.4 Neutrophils % % 58.6 Lymphocytes % % 30.7 Monocytes % % 7.8 Eosinophils % % 1.7 Basophils % % 0.8 Nucleated RBC % (0.0-0.3) % 0.0 Absolute Neutrophils (1.2-6.7) 10^3/uL 4.57 Absolute Lymphocytes (1.2-3.4) 10^3/uL 2.39 Absolute Monocytes (0.1-0.8) 10^3/uL 0.61 Absolute Eosinophils (0.0-0.7) 10^3/uL 0.13 Absolute Basophils (0.0-0.2) 10^3/uL 0.06 VBG Lactate (<or=2.0) mmol/L 2.5 H* Sodium (136-145) mmol/L 139 Potassium (3.5-5.1) mmol/L 4.1 Chloride (98-107) mmol/L 106 Carbon Dioxide (20.0-31.0) mmol/L 25.3 Anion Gap (3-11) mmol/L 7.7 BUN (9-23) mg/dL 12 Creatinine (0.55-1.02) mg/dL 0.78 Est GFR (CKD-EPI 2020) (mL/min/1.73m2) 73.99 Glucose (74-106) mg/dL 245 H Calcium (8.3-10.6) mg/dL 9.7 Magnesium (1.6-2.6) mg/dL 1.9 Total Bilirubin (0.2-1.2) mg/dL 0.70 AST (<34) U/L 39 H ALT (10-49) U/L 54 H Alkaline Phosphatase (46-116) U/L 105 Troponin I (<35) ng/L 118 H* 103 H* Total Protein (5.7-8.2) g/dL 7.8 Albumin (3.2-5.0) g/dL 4.6 Lipase (<53) U/L 65 H Urine Color (Yellow) Yellow Urine Clarity (Clear) Clear Urine pH (5-8) 6.0 Ur Specific Armour (1.005-1.025) 1.010 Urine Protein (Neg-Trace) mg/dL Negative Urine Ketones (Negative) mg/dL Negative Urine Blood (Negative) Negative Urine Nitrite (Negative) Negative Urine Bilirubin (Negative) Negative Urine Urobilinogen (Up to 0.2) mg/dL 0.2 Ur Leukocyte Esterase (Negative) Negative Urine Glucose (Negative) mg/dL 500 H Range/Units 06/06/25 19:40 WBC (4.4-10.8) 10^3/uL RBC (3.93-5.22) 10^6/uL Hgb (11.2-15.7) g/dL Hct (36.0-46.0) % MCV (80-95) fL MCH (27.0-33.0) pg MCHC (32.0-36.0) % RDW (11.7-14.6) % Plt Count (130-400) 10^3/uL MPV (8.0-11.0) fL Immature Gran % % Neutrophils % % Lymphocytes % % Monocytes % % Eosinophils % % Basophils % % Nucleated RBC % (0.0-0.3) % Absolute Neutrophils (1.2-6.7) 10^3/uL Absolute Lymphocytes (1.2-3.4) 10^3/uL Absolute Monocytes (0.1-0.8) 10^3/uL Absolute Eosinophils (0.0-0.7) 10^3/uL Absolute Basophils (0.0-0.2) 10^3/uL VBG Lactate (<or=2.0) mmol/L 1.3 Sodium (136-145) mmol/L Potassium (3.5-5.1) mmol/L Chloride (98-107) mmol/L Carbon Dioxide (20.0-31.0) mmol/L Anion Gap (3-11) mmol/L BUN (9-23) mg/dL Creatinine (0.55-1.02) mg/dL Est GFR (CKD-EPI 2020) (mL/min/1.73m2) Glucose (74-106) mg/dL Calcium (8.3-10.6) mg/dL Magnesium (1.6-2.6) mg/dL Total Bilirubin (0.2-1.2) mg/dL AST (<34) U/L ALT (10-49) U/L Alkaline Phosphatase (46-116) U/L Troponin I (<35) ng/L Total Protein (5.7-8.2) g/dL Albumin (3.2-5.0) g/dL Lipase (<53) U/L Urine Color (Yellow) Urine Clarity (Clear) Urine pH (5-8) Ur Specific Armour (1.005-1.025) Urine Protein (Neg-Trace) mg/dL Urine Ketones (Negative) mg/dL Urine Blood (Negative) Urine Nitrite (Negative) Urine Bilirubin (Negative) Urine Urobilinogen (Up to 0.2) mg/dL Ur Leukocyte Esterase (Negative) Urine Glucose (Negative) mg/dL Radiology: Exam(s) XR PORTABLE CHEST AP EXAM: XR PORTABLE CHEST AP CLINICAL HISTORY: Flank pain TECHNIQUE: 2D digital imaging was performed of the chest. One image was obtained. An AP view was obtained. COMPARISON: CR,XR XR CHEST 2V PA LATERAL from 05/06/2023 CR,XR XR CHEST 2V PA LATERAL from 08/20/2024 FINDINGS: MEDIASTINUM: Normal. HEART: Normal. PULMONARY VASCULATURE: Normal. LUNGS: Clear. PLEURAL SPACE: No pleural effusion or pneumothorax. BONE:Within normal limits for the patient's age. OTHER FINDINGS:Normal. IMPRESSION: No acute pulmonary findings. PROCEDURE INFORMATION: Exam: CT Abdomen And Pelvis With Contrast Exam date and time: 06/06/2025 5:18 PM Age: 64 years old Clinical indication: Abdominal pain; Flank; Left TECHNIQUE: Imaging protocol: Computed tomography of the abdomen and pelvis with contrast. Contrast material: OMNIPAQUE 350; Contrast volume: 100 ml; Contrast route: INTRAVENOUS (IV); COMPARISON: CT ABDOMEN PELVIS W 05/07/2025 9:58 AM FINDINGS: Liver: Hepatic steatosis is noted. Gallbladder and biliary ducts: Normal. No calcified stones. No ductal dilation. Pancreas: No ductal dilation. No pancreatic lesion seen. Spleen: The spleen is unremarkable. No splenomegaly. Adrenal glands: A 2.1 cm nodule is again noted in the left adrenal gland, not demonstrating characteristics of a classic adenoma. Kidneys and ureters: Scarring is noted in the left kidney, similar to prior examination. No hydronephrosis. Stomach and bowel: No obstruction. No mucosal thickening. Appendix: No evidence of appendicitis. Intraperitoneal space: No free air. No significant fluid collection. Vasculature: No abdominal aortic aneurysm. Lymph nodes: No enlarged lymph nodes. Urinary bladder: Unremarkable as visualized. Reproductive: Unremarkable as visualized. PATIENCE MANJARREZ Preliminary Radiology Report ENT NURSE (QA) DISCREPANCY? If there is a discrepancy between the preliminary and final interpretation, please notify [facility] via [email or web address]. If you do not have access to our QA portal, call our QA team at [phone] CONFIDENTIALITY STATEMENT This report is intended only for the use of the referring physician, and only in accordance with law, If you received this in error, call [phone] Page 2 of 2 Bones/joints: No acute fracture. Multilevel degenerative changes noted in the lumbar spine with bilateral neural foraminal narrowing and spinal canal stenosis. Soft tissues: Unremarkable. IMPRESSION: 1. No evidence of bowel obstruction or acute bowel inflammation. 2. Scarring noted in the left kidney, similar to prior examination. 3. Stable appearance of left adrenal gland nodule. Thank you for allowing us to participate in the care of your patient. Dictated and Authenticated by: April Vicente MD Related Data Home Medications ?Medication ?Instructions ?Recorded ?Confirmed Cpap 10/24/12 06/06/25 acetaminophen 325 mg tablet 650 mg PO Q4H PRN 10/24/12 06/06/25 (Tylenol) lancets 33 gauge (OneTouch Delica #200 ea 12/15/12 Lancets) blood sugar diagnostic (OneTouch #100 strips 01/24/14 06/06/25 Ultra Test strips) inhalational spacing device #1 ea 05/01/18 06/06/25 (Aerochamber MV spacer) nitroglycerin 0.4 mg sublingual 0.4 mg sublingual PRN #25 tab-caps 05/04/18 06/06/25 tablet amlodipine 5 mg tablet 5 mg PO DAILY #90 tab-caps 0 07/27/18 06/06/25 clopidogrel 75 mg tablet (Plavix) 75 mg PO DAILY #90 t abs 07/27/18 06/06/25 simvastatin 10 mg tablet 10 mg PO DAILY #90 tab-caps 07/31/18 06/06/25 losartan 100 mg tablet (Cozaar) 100 mg PO DAILY #90 ta b-caps 12/27/18 06/06/25 fluticasone propionate 50 1 spray intranasal BID PRN n rossy 02/03/19 06/06/25 mcg/actuation nasal congestion #9.9 grams spray,suspension (Flonase Allergy Relief) loratadine 10 mg tablet (Claritin) 10 mg PO DAILY 01/0806/06/25 lorazepam 1 mg tablet 0.5 - 1 mg (0.5 - 1 x 1 mg) PO BID 02/19/19 06/06/25 PRN anxiety #30 tabs albuterol sulfate 90 mcg/actuation 2 puff inhalation Q 4H PRN 08/29/19 06/06/25 aerosol inhaler (Ventolin HFA) shortness of breath or wheezing #8.5 grams metformin 500 mg tablet 1,000 mg PO BID 09/12/19 aspirin 81 mg tablet,delayed 81 mg PO DAILY 08/17/2008/06/24 release lamotrigine 100 mg tablet 100 mg PO QAM 08/17/2006/06 trazodone 50 mg tablet 100 mg PO HS PRN 08/17/20 blood sugar diagnostic (FreeStyle #10 ea 12/06/2005/11 Lite Strips) blood-glucose meter (FreeStyle #1 ea 12/06/20 06/06/25 Lite Meter kit) melatonin 10 mg capsule 10 mg PO HS PRN 02/23/21 pantoprazole 40 mg tablet,delayed 40 mg PO DAILY #30 t abs 11/25/21 06/06/25 release (Protonix) nebulizers (Aeroneb Go Nebulizer) #1 ea 04/03/2206/06 buspirone 30 mg tablet 30 mg PO BID 03/16/23 sucralfate 100 mg/mL oral 10 ml PO QID 03/16/23 suspension ipratropium 0.5 mg-albuterol 3 mg 3 ml inhalation Q4H PRN wheezing 06/05/23 06/06/25 (2.5 mg base)/3 mL nebulization #90 mL soln docusate sodium 100 mg tablet 100 mg PO DAILY 04/13/24 06/06/25 sodium chloride 0.65 % nasal spray 2 spray intranasal Q4H #44 mL 08/17/24 06/06/25 aerosol (Saline Mist) empagliflozin 10 mg tablet 10 mg PO DAILY 06/06/25 (Jardiance) Previous Rx's ?Medication ?Instructions ?Recorded inhalational spacing device #1 ea 05/01/18 (Aerochamber MV spacer) nitroglycerin 0.4 mg sublingual 0.4 mg sublingual PRN #25 tab-caps 05/04/18 tablet amlodipine 5 mg tablet 5 mg PO DAILY #90 tab-caps 0 07/27/18 clopidogrel 75 mg tablet (Plavix) 75 mg PO DAILY #90 t abs 07/27/18 simvastatin 10 mg tablet 10 mg PO DAILY #90 tab-caps 07/31/18 losartan 100 mg tablet (Cozaar) 100 mg PO DAILY #90 ta b-caps 12/27/18 fluticasone propionate 50 1 spray intranasal BID PRN n rossy 02/03/19 mcg/actuation nasal congestion #9.9 grams spray,suspension (Flonase Allergy Relief) lorazepam 1 mg tablet 0.5 - 1 mg (0.5 - 1 x 1 mg) PO BID 02/19/19 PRN anxiety #30 tabs albuterol sulfate 90 mcg/actuation 2 puff inhalation Q 4H PRN 08/29/19 aerosol inhaler (Ventolin HFA) shortness of breath or wheezing #8.5 grams blood sugar diagnostic (FreeStyle #10 ea 12/06/20 Lite Strips) blood-glucose meter (FreeStyle #1 ea 12/06/20 Lite Meter kit) pantoprazole 40 mg tablet,delayed 40 mg PO DAILY #30 t abs 11/25/21 release (Protonix) nebulizers (Aeroneb Go Nebulizer) #1 ea 04/03/22 ipratropium 0.5 mg-albuterol 3 mg 3 ml inhalation Q4H PRN wheezing 06/05/23 (2.5 mg base)/3 mL nebulization #90 mL soln sodium chloride 0.65 % nasal spray 2 spray intranasal Q4H #44 mL 08/17/24 aerosol (Saline Mist) Allergies Allergy/AdvReac Type Severity Reaction Status Date / Time azithromycin AdvReac Mild Nausea Verified 08/20/24 14:01 codeine AdvReac Mild Nausea Verified 08/20/24 14:01 erythromycin base AdvReac Mild Nausea Verified 08/20/24 14:01 ibuprofen AdvReac Mild Nausea Verified 08/20/24 14:01 lisinopril AdvReac Mild cough Verified 08/20/24 14:01 NSAIDS (Non-Steroidal AdvReac Mild Nausea Verified 08/20/24 14:01 Anti-Inflamma General Stated Complaint: FlankPain MONICA: 3 Course Vital Signs Vital signs: Vital Signs Temperature 36.4 C 06/06/25 15:23 Pulse 79 06/06/25 15:23 Respiratory Rate 16 06/06/25 15:23 Blood Pressure 169/69 H 06/06/25 15:23 Pulse Oximetry 98 06/06/25 15:23 Temperature 36.4 C 06/06/25 15:23 Pulse 79 06/06/25 15:23 Respiratory Rate 16 06/06/25 15:23 Blood Pressure 169/69 H 06/06/25 15:23 Blood Pressure Position Sitting 06/06/25 15:23 Pulse Oximetry 98 06/06/25 15:23 Oxygen Delivery Method Room Air 06/06/25 15:23 Oxygen Flow Rate 0 06/06/25 15:23 Pain Level 5 06/06/25 15:23 Lab/Test Results Lab/Test Results: 06/06/25 16:07 Blood Blood Culture - Pending 06/06/25 16:07 Blood Blood Culture - Pending 06/06/25 16:07 Cornea - Left Eye Culture - Pending Laboratory Tests Range/Units 06/06/25 16:01 WBC (4.4-10.8) 10^3/uL 7.79 RBC (3.93-5.22) 10^6/uL 4.64 Hgb (11.2-15.7) g/dL 13.7 Hct (36.0-46.0) % 40.6 MCV (80-95) fL 88 MCH (27.0-33.0) pg 29.5 MCHC (32.0-36.0) % 33.7 RDW (11.7-14.6) % 13.6 Plt Count (130-400) 10^3/uL 398 MPV (8.0-11.0) fL 9.6 Immature Gran % % 0.4 Neutrophils % % 58.6 Lymphocytes % % 30.7 Monocytes % % 7.8 Eosinophils % % 1.7 Basophils % % 0.8 Nucleated RBC % (0.0-0.3) % 0.0 Absolute Neutrophils (1.2-6.7) 10^3/uL 4.57 Absolute Lymphocytes (1.2-3.4) 10^3/uL 2.39 Absolute Monocytes (0.1-0.8) 10^3/uL 0.61 Absolute Eosinophils (0.0-0.7) 10^3/uL 0.13 Absolute Basophils (0.0-0.2) 10^3/uL 0.06 VBG Lactate (<or=2.0) mmol/L 2.5 H* PFSH All Active Problems (Updated 06/06/25 @ 18:49 by Guillermo Fernandez MD) Lactic acid increased (Acute) Elevated troponin level not due to acute coronary syndrome (Acute) Chronic left flank pain (Acute) Elevated lipase (Acute) Medication adverse effect (Acute) Abdominal pain (Acute) Degenerative joint disease of right knee (Acute) Mild 40 mg Depo: 03/20/23 Internal derangement of right knee (Acute) Right knee pain (Acute) Liver cirrhosis secondary to nonalcoholic steatohepatitis ([place]) (Acute) Chronic diarrhea (Acute) Epigastric pain (Acute) Hyperplastic colon polyp (Acute) ASCVD (arteriosclerotic cardiovascular disease) (Acute) 10/15 anterolat NSTE TX; stent x 4; 10/15 echo-EF 55%; inf.wall hypokinesis; mild Anxiety (Acute) after TX decreased memory/concentration--[facility] neurology COPD (chronic obstructive pulmonary disease) (Acute) continues to smoke Depressive disorder (Acute) fatigue Diabetic peripheral neuropathy associated with type 2 diabetes mellitus (Acute 03/03/16) Essential hypertension (Acute 05/03/13) Urinary, incontinence, stress female (Acute 09/13/13) Heart murmur (Acute 09/13/13) 10/21 echo LVEF 70% with LVH, aoritc valve thickened but opens well (no signif aortic stenosis) [facility] Echo 02/05/19 - LVH (mild-mod), EeF= 60-65%, systolic function normal, ascending aorta mildly dilated Hyperlipidemia (Acute 12/18/12) Morbid obesity (Acute) Numbness and tingling in right hand (Acute 03/03/16) Obstructive sleep apnea syndrome (Acute 03/27/10) [facility] [place] sleep lab Pap smear abnormality of cervix with LGSIL (Acute) LGSIL +HPV; BX darcie I Postmenopausal bleeding (Acute 09/21/11) atypical endometrial hyperplasia Sciatica (Acute 07/04/13) left sciatica, MRI [facility] 07/22/13: L3-4 disc extrusion Skin tags, multiple acquired (Acute 02/15/16) Smoker (Acute) Type II diabetes mellitus, uncontrolled (Acute) Asthma (Chronic) Status post arthroscopy of left knee (Acute) History of section (Acute) Family history of malignant neoplasm of breast (Acute 09/11/14) Fever (Acute) She is febrile and has both abdominal and chest symptoms. We will send to the emergency room. Upper respiratory infection (Acute) Hyperglycemia (Acute) Acute bronchospasm (Acute) Seasonal allergies (Acute) History of COPD (Acute) Fatty liver (Acute) Diverticulosis (Acute) Constipation (Acute) Incontinence (Acute) Pedal edema (Acute) Varicose veins of lower extremity (Acute) Bipolar disorder (Chronic) Compliant with therapeutic regimen (Acute) Caren, oral (Acute) Allergic rhinitis (Acute) Medical History Hx of malignant neoplasm of eye History of renal carcinoma Hypertension COPD (chronic obstructive pulmonary disease) Hyperlipidemia Heart murmur Atherosclerotic cardiovascular disease Depression Anxiety Stress incontinence in female Morbid obesity with BMI of 40.0-44.9, adult Plantar fasciitis of left foot Sleep apnea Surgical History H/O esophagogastroduodenoscopy (~03/10/21) S/P colonoscopy (~03/10/21) Stent placement X 4 TO LCX-1995 section (~1981) Cervical Procedure BX DARCIE I Arthroplasty of knee athroscopy not arthroplasty. Family History Mother Personal history of malignant neoplasm UTERINE CA; HYSTERECTOMY AGE 76 Uterine cancer Hysterectomy at 76 Father Heart disease Brother Diabetes Cancer Brother No problems noted. Brother No problems noted. Social History Smoking/Tobacco Use Status: Current every day Tobacco Type: cigarettes Smoking packs per day: 1 Smoking cigarettes per day: 20.0 Smoking risk assessment performed?: Yes Alcohol Intake: current Alcohol Intake frequency: holidays/special occasions only Drug use: Never Substance use type: does not use Household members: significant other Housing: house Communication Needs: None Do you need help understanding health information?: Rarely Pets and animals: Yes Pets and animals: dog(s) Do you think of yourself as: straight/heterosexual Current gender identity: female What is your relationship status?: living with partner How often do you talk on the phone with friends or family?: three or more times per week How often do you get together with friends or relatives?: decline to answer How often do you attend orthodox or adventist services?: decline to answer Do you belong to any clubs or organized social groups?: no Panel score (0-1 are the most socially isolated patients): 2 What type of physical activity do you participate in: none Duration: < 15 minutes/day Frequency: daily Katerina/Nondenominational: none Special katerina needs: No Seatbelt use: sometimes Helmet use: Yes Helmet use: always Drive intox or ride w/intox corrugated fastener driver: No Do you feel safe at home: Yes Do you feel safe in your relationship?: Yes
[2025-06-06 16:33] LABS: Lipase 65 U/L (<53)
[2025-06-06] MEDS: Normal Saline 1,000 ML 1000 ML IV (16:33)
[2025-06-06 16:34] LABS: Magnesium 1.9 mg/dL (1.6-2.6)
[2025-06-06] MEDS: Ketorolac 15 MG/ML VIAL IV (16:34)
[2025-06-06] MEDS: ACETAMINOPHEN 1,000 MG/100 ML BAG 400 MG IVPB (16:34)
[2025-06-06 16:35] LABS: ALT 54 U/L (10-49); AST 39 U/L (<34); Albumin 4.6 g/dL (3.2-5.0); Alkaline Phosphatase 105 U/L (46-116); Anion Gap 7.7 mmol/L (3-11); BUN 12 mg/dL (9-23); Bilirubin, Total 0.70 mg/dL (0.2-1.2); CO2 25.3 mmol/L (20.0-31.0); Calcium 9.7 mg/dL (8.3-10.6); Chloride 106 mmol/L (98-107); Glucose 245 mg/dL (74-106); Potassium 4.1 mmol/L (3.5-5.1); Sodium 139 mmol/L (136-145); Total Protein 7.8 g/dL (5.7-8.2)
[2025-06-06] MEDS: Droperidol 5 MG/2 ML VIAL 2.5 MG IVP (16:35)
--- NOTE | 2025-06-06 16:39 | DI.CT_ITS ---
Exam(s) CT ABDOMEN PELVIS W EXAM: CT ABDOMEN PELVIS W CLINICAL HISTORY: left flank pain TECHNIQUE: Imaging Protocol: Axial computed tomography images with coronal and sagittal reformatted images were created and reviewed. CONTRAST MATERIAL: Intravenous: Omnipaque 350 Contrast volume:100 mL Oral: No COMPARISON: CT CT ABDOMEN PELVIS W from 06/03/[address] ABDOMEN PELVIS W from 03/04/[address] ABDOMEN PELVIS W from 04/15/[address] ABDOMEN PELVIS W from 05/07/2025 FINDINGS: ABDOMEN: Lung Bases: No acute abnormality. Liver: Normal density. No measurable mass. Portal, Superior Mesenteric, and Splenic Veins: Unremarkable. Gallbladder and Biliary Tract: No radiodense calculus or dilation. Pancreas: Normal density, no abnormal calcifications or inflammatory process. Spleen: Normal. Adrenals: There is a stable left adrenal nodule. No follow-up is recommended. The right adrenal nodule is unremarkable. Kidneys: Normal size, contour and axis. There is a stable calcification in the lower pole of the left kidney. There is stable scarring of the inferior pole of the left kidney. There is no obstructive uropathy. No masses seen. Abdominal Aorta: Abdominal portion non-dilated. Atherosclerotic calcification is present. Bowel: No obstruction or bowel wall thickening. There is diverticulosis seen in the colon. No evidence of acute diverticulitis. There is a normal appendix. Peritoneal Cavity: No ascites, collection or mesenteric inflammatory response. No free air. Lymph Nodes: Within normal limits. Bones: Within normal limits for the patient's age. Soft Tissues: There is a small fat containing right inguinal hernia. PELVIS: Bladder: Symmetric distention, no gross wall thickening. Reproductive Organs: Unremarkable as visualized. Lymph Nodes: Within normal limits. Bones: Within normal limits for the patient's age. IMPRESSION: 1. There is a stable left renal stone. There is no obstructive uropathy. 2. No acute abdominal or pelvic process. 3. The preliminary [facility] report was reviewed. RADIATION DOSE DELIVERED: 868.94mGy.cm Total DLP DATA REPOSITORY: All CT scans at this facility are submitted to the National Radiology Data Registry (NRDR) Dose Index Registry (DIR) with the [employer] ([employer]). RADIATION OPTIMIZATION: All CT scans at this facility use at least one of these dose optimization techniques: automated exposure control; mA and/or kV adjustment per patient size (includes targeted exams where dose is matched to clinical indication); or iterative reconstruction.
--- NOTE | 2025-06-06 16:45 | RT.EKG_ITS ---
APPROVED REPORT Exam: Resting ECG Reason for Exam: elevated troponin Patient Location: E HR:68 bpm ECG Measurements Heart Rate 68 AXIS MT 182 P -21 QRSd 93 QRS 4 QT 418 T 37 QTc 399 Conclusion Sinus bradycardia...rate< 60 Multiple ventricular premature complexes...V complexes w/ short R-R intervls No STEMI
[2025-06-06 16:52] LABS: Troponin I 118 ng/L (<35)
[2025-06-06] MEDS: Omnipaque 350 MG/ML 100 ML BTL IJ (17:18)
[2025-06-06] MEDS: Normal Saline Flush 10 ML SYR IVP (17:18)
[2025-06-06] MEDS: Normal Saline - Diluent 50 ML VIAL IJ (17:18)
[2025-06-06 17:43] VITALS: BP 171/99; PULSE 53; RESP 13; O2SAT 96
[2025-06-06 17:46] VITALS: BP 169/76; PULSE 52; PULSE 53; RESP 17; O2SAT 94
--- NOTE | 2025-06-06 17:52 | DI.[facility]_ITS ---
PROCEDURE INFORMATION: Exam: CT Abdomen And Pelvis With Contrast Exam date and time: 06/06/2025 5:18 PM Age: 64 years old Clinical indication: Abdominal pain; Flank; Left TECHNIQUE: Imaging protocol: Computed tomography of the abdomen and pelvis with contrast. Contrast material: OMNIPAQUE 350; Contrast volume: 100 ml; Contrast route: INTRAVENOUS (IV); COMPARISON: CT ABDOMEN PELVIS W 05/07/2025 9:58 AM FINDINGS: Liver: Hepatic steatosis is noted. Gallbladder and biliary ducts: Normal. No calcified stones. No ductal dilation. Pancreas: No ductal dilation. No pancreatic lesion seen. Spleen: The spleen is unremarkable. No splenomegaly. Adrenal glands: A 2.1 cm nodule is again noted in the left adrenal gland, not demonstrating characteristics of a classic adenoma. Kidneys and ureters: Scarring is noted in the left kidney, similar to prior examination. No hydronephrosis. Stomach and bowel: No obstruction. No mucosal thickening. Appendix: No evidence of appendicitis. Intraperitoneal space: No free air. No significant fluid collection. Vasculature: No abdominal aortic aneurysm. Lymph nodes: No enlarged lymph nodes. Urinary bladder: Unremarkable as visualized. Reproductive: Unremarkable as visualized. Bones/joints: No acute fracture. Multilevel degenerative changes noted in the lumbar spine with bilateral neural foraminal narrowing and spinal canal stenosis. Soft tissues: Unremarkable. IMPRESSION: 1. No evidence of bowel obstruction or acute bowel inflammation. 2. Scarring noted in the left kidney, similar to prior examination. 3. Stable appearance of left adrenal gland nodule. Dictated and Authenticated by: April Francis MD. Orderin Rebecca Li MD
[2025-06-06 18:01] VITALS: BP 145/63; PULSE 55; PULSE 68; RESP 21
[2025-06-06 18:33] LABS: Troponin I 103 ng/L (<35)
[2025-06-06] MEDS: Lactated Ringers 1,000 ML 1000 ML IV (18:42)
[2025-06-06 19:12] VITALS: BP 220/90; PULSE 57; RESP 18; O2SAT 98
[2025-06-06 20:28] VITALS: BP 181/85
== END 2025-06-06 20:28 | disposition home or self-care (01) ==
PROVIDERS: Emergency Provider General Practice; PCP Nurse Practitioner Family
DX: R10.A2 Flank pain, left side (principal); R79.89 Other specified abnormal findings of blood chemistry; R53.83 Other fatigue
CPT/HCPCS: 36415; 80053; 83690; 87040; 93005; 96361; 96374; 96375; 99285; 71045; 74177; 81003; 83605; 83735; 84484; 85025; 87070; 93010; 99284; J0131; J1790; J1885; J3490